=== PATIENT | female | born 1940 | race Caucasian/White ===

== ENCOUNTER 2022-02-05 13:56 | Emergency (ER) | payer MEDICARE, MEDICAID, SELFPAY ==
--- NOTE | ~2022-02-05 | CT_ITS ---
EXAMINATION: CT abdomen pelvis w con DATE: 02/05/2022 15:53 INDICATION: Small bowel obstruction TECHNIQUE: Computed tomography (CT) of the abdomen and pelvis was performed . 100 CC Omnipaque 350 in travenous contrast. Automated exposure control and iterative reconstruction technique were employed. Exam dose: 850.72 mGy-cm total exam DLP. COMPARISON: None. FINDINGS: The lung bases are clear. Cardiomegaly. No pericardial or pleural effusion. Postoperative change including surgical clips and retraction of left breast. Status post cholecystectomy. This likely accounts for mild prominence of the intrahepatic bile ducts. Normal caliber of the common bile duct. Normal caliber of the pancreatic duct. No hepatic, splenic, pancreatic, and adrenal or renal space-occupying mass lesion is evident. There i s extensive atherosclerotic calcification of the abdominal aorta and iliac arteries but no aneurysm o f these vessels. No intraperitoneal or retroperitoneal or pelvic mass lesion or adenopathy or ascites. There is a Schmitt catheter within the evacuated urinary bladder. Status post hysterectomy. There is a very prominent amount of fecal material throughout the colon as well as distal small bowel . There is a nonobstructed nonstrangulated loop of small bowel within a right inguinal hernia. No bow el obstruction, bowel wall thickening, pneumatosis or intraperitoneal free air is detected. Diffuse idiopathic skeletal hyperostosis of the thoracic spine. Multilevel degenerative disc disease of the lumbar spine, especially L1-2 and L2-3 with is retrolisth esis at each of these levels, moderately severe degenerative disc disease at L3-4 as well. There is d egenerative change at the apophyseal joints with associated grade 1 anterolisthesis at L4-5. No suspicious osteolytic or osteoblastic lesions are noted. IMPRESSION: Mammographic material throughout the colon and also in the distal small bowel; no bowel obstruction There is a nonobstructed nonstrangulated loop of small bowel within the right inguinal hernia Status post cholecystectomy Status post hysterectomy Postoperative change from left partial mastectomy Small sliding hiatal hernia Reviewed, dictated and finalized at [facility]. Reviewed, dictated and finalized at location [facility]. IMPRESSION: Mammographic material throughout the colon and also in the distal small bowel; no bowel obstruction There is a nonobstructed nonstrangulated loop of small bowel within the right i nguinal hernia Status post cholecystectomy Status post hysterectomy Postoperative change from left partial mastectomy Small sliding hiatal hernia
[2022-02-05 14:02] VITALS: BP 118/69; PULSE 79; RESP 20; TEMP 36.8; O2SAT 95
[2022-02-05 15:23] LABS: Basophils Absolute Auto 0.1 K/mm3 (0.0-0.1); Basophils Percent Auto 0.6 % (0.2-1.2); Eosinophils Absolute Auto 0.2 K/mm3 (0-0.3); Eosinophils Percent Auto 1.7 % (0-4.4); Hematocrit 48.7 % (37.0-47.0); Hemoglobin 15.6 g/dL (12.0-15.0); Immature Granulocyte Absolute 0.21 K/mm3 (0.00-0.031); Immature Granulocyte Percent A 1.5 % (0-0.5); Lymphocytes Absolute Auto 2.05 K/mm3 (0.9-3.2); Lymphocytes Percent Auto 14.7 % (18.3-44.2); Mean Corpuscular Hemoglobin 26.9 pg (26-34); Mean Corpuscular Volume 84.1 fl (80-100); Monocytes Absolute Auto 2.5 K/mm3 (0.1-0.6); Monocytes Percent Auto 18.3 % (2.6-8.5); Neutrophils Absolute Auto 8.8 K/mm3 (1.3-6.7); Neutrophils Percent Auto 63.2 % (45.5-73.1); Platelet Count Result 301 k/mm3 (150-375); Red Blood Count 5.79 M/mm3 (4.2-5.4); Red Cell Distribution Width 13.9 % (11.5-14.5); White Blood Count 13.9 K/mm3 (4.5-10.0)
[2022-02-05 15:27] LABS: Alanine Aminotransferase 27 U/L (6-35); Albumin Level 3.7 g/dL (3.5-5.1); Alkaline Phosphatase 117 U/L (38-126); Anion Gap 9 mmol/L (8-16); Aspartate Amino Transferase 24 U/L (14-36); Bilirubin,Total 0.3 mg/dL (0.2-1.3); Blood Urea Nitrogen 22 mg/dL (7-17); Calcium 10.2 mg/dL (8.4-10.2); Carbon Dioxide 28 mmol/L (22-30); Chloride 99 mmol/L (98-107); Estimated CRCL calculation 47 ml/min; Estimated Glomerular Filt Rate > 60; Glucose 125 mg/dL (65-110); Lipase 86 U/L (23-300); Potassium 3.8 mmol/L (3.4-5.0); Sodium 136 mmol/L (137-145)
--- NOTE | 2022-02-05 15:33 | ED.ABDPAIN ---
HPI - Abdominal Pain General Chief Complaint: Abdominal Pain Stated Complaint: SBO Time Seen by Provider: 02/05/22 14:06 History of Present Illness HPI narrative: Patient is an 81-year-old female who presents ER from her longterm for evaluation of possible bowel obstruction. Patient reports she is bloated and that this is a new finding over the last 2 days. She is still passing gas but has not had a bowel movement. She is unsure if she has been taking any laxatives. Chart review shows patient has history of chronic constipation and is on multiple stool softeners and laxatives. She has no pain. She is oriented x2. Suspect this is her baseline given the fact that she has a donepezil allergy. Related Data Allergies Allergy/AdvReac Type Severity Reaction Status Date / Time diltiazem Allergy Unknown Verified 02/05/22 16:39 donepezil Allergy Unknown Verified 02/05/22 16:39 fluticasone Allergy Unknown Verified 02/05/22 16:39 metformin Allergy Unknown Verified 02/05/22 16:39 Review of Systems Review of Systems: ROS unobtainable: Yes unobtainable due to mental status [facility] Past Medical History Medical History (Updated 02/05/22 @ 17:23 by Duane Tomas MD) Atherosclerotic heart disease Atrial fibrillation Breast cancer Chronic idiopathic constipation Congestive heart failure Dementia GERD (gastroesophageal reflux disease) Hereditary spastic paraplegia Hyperparathyroidism Hypertension Hypothyroidism Neurogenic bladder Type 2 diabetes mellitus Surgical History Surgical History (Updated 02/05/22 @ 15:36 by Duane Tomas MD) Surgical history unknown Social History Social History (Updated 02/05/22 @ 15:36 by Duane Tomas MD) Social History: Resides at [facility]. Full code. Exam Narrative: GENERAL: Well-appearing, well-nourished, and in no acute distress. HEAD: Normocephalic, atraumatic. EYES: PERRL and EOMI. ENT: Mucous membranes moist. CHEST: Clear to auscultation. No respiratory distress. HEART: Regular rate and rhythm. Normal peripheral pulses. ABDOMEN: Soft, nontender, mildly distended with normal bowel sounds. EXTREMITIES: Normal range of motion. No edema. SKIN: Warm, dry, no rash. NEURO: Alert and oriented x2. PSYCH: Normal mood and affect. Course Course Emergency Course: He has no itching and no obstruction just persistent constipation. Patient's abdomen is nontender. We will give some lactulose here and recommend increasing bowel regimen for home. Vital Signs Vital signs: Vital Signs Temperature 98.2 F 02/05/22 14:02 Pulse Rate 79 02/05/22 14:02 Respiratory Rate 20 02/05/22 14:02 Blood Pressure 118/69 02/05/22 14:02 Pulse Oximetry 95 02/05/22 14:02 Oxygen Delivery Room Air 02/05/22 14:02 Temperature 98.2 F 02/05/22 14:02 Pulse Rate 79 02/05/22 16:21 Respiratory Rate 16 02/05/22 16:21 Blood Pressure 138/59 L 02/05/22 16:21 Pulse Oximetry 99 02/05/22 16:21 Oxygen Delivery Room Air 02/05/22 14:02 MDM - Abdominal Pain Lab Data Result diagrams: 02/05/22 15:13 02/05/22 15:13 Labs: Lab Results 02/05/22 02/05/22 Range/Units 15:13 15:13 WBC 13.9 H (4.5-10.0) K/mm3 RBC 5.79 H (4.2-5.4) M/mm3 Hgb 15.6 H (12.0-15.0) g/dL Hct 48.7 H (37.0-47.0) % MCV 84.1 (80-100) fl MCH 26.9 (26-34) pg MCHC 32.0 (32-36) g/dl RDW 13.9 (11.5-14.5) % Plt Count 301 (150-375) k/mm3 MPV 10.0 (7.4-10.4) fl Immature Gran % (Auto) 1.5 H (0-0.5) % Neut % (Auto) 63.2 (45.5-73.1) % Lymph % (Auto) 14.7 L (18.3-44.2) % Long % (Auto) 18.3 H (2.6-8.5) % Eos % (Auto) 1.7 (0-4.4) % Baso % (Auto) 0.6 (0.2-1.2) % Lymph # (Auto) 2.05 (0.9-3.2) K/mm3 Long # (Auto) 2.5 H (0.1-0.6) K/mm3 Eos # (Auto) 0.2 (0-0.3) K/mm3 Baso # (Auto) 0.1 (0.0-0.1) K/mm3 Abs Immat Gran (auto) 0.21 H (0.00-0.031) K/mm3 Absolute Neuts (auto) 8.8 H (1.3
[2022-02-05 16:21] VITALS: BP 138/59; PULSE 79; RESP 16; O2SAT 99
[2022-02-05] MEDS: LACTULOSE 20 GM/30 ML UDC PO (16:49)
== END 2022-02-05 18:43 | disposition home or self-care (01) ==
PROVIDERS: Emergency Provider Emergency Medicine; PCP Family Medicine
DX: K59.00 Constipation, unspecified (principal); I25.10 Atherosclerotic heart disease of native coronary artery without angina pectoris; I48.91 Unspecified atrial fibrillation; Z85.3 Personal history of malignant neoplasm of breast; I11.0 Hypertensive heart disease with heart failure; I50.9 Heart failure, unspecified; E03.9 Hypothyroidism, unspecified; E11.9 Type 2 diabetes mellitus without complications
CPT/HCPCS: 36415; 74177; 80053; 83690; 85025; 99284; A9270; Q9967

== ENCOUNTER 2022-03-25 00:33 | Day surgery (SDC) | payer MEDICARE, OTHER, MEDICAID, SELFPAY ==
[2022-03-11 14:40] VITALS: BMI 27.1
--- NOTE | 2022-03-11 15:32 | PC.NURSE ---
Report to the Outpatient Waiting Room, entrance under the green pavilion located off [facility], at time _1130 on date __03/25/22 . Planned Procedure Time: _1330 . Time changes happen often and if your time is changed the preop area will call you the afternoon before. - You and your visitor will be asked to self-screen and do not enter if you have any COVID symptoms. - We encourage only one visitor and NO visitors under age 16 are allowed at this time. Your visitor will receive communication by the phone number that is given day of service. - The patient visitor is requested to social distance or may leave the building when not with patient due to restrictions. - A mask is required within the hospital. Patients may have clear liquids (water, carbonated beverages, clear teas, apple juice) until 3 hours prior to surgery with a maximum of 20 ounces. - No food from midnight until time of surgery - Infants may have breast milk until 4 hours before surgery, formula 6 hours prior to surgery. - Children will be allowed to drink immediately following surgery. If applicable, please bring a bottle or sippy cup to assist with drinking. Juice, water, soda, and popsicles are readily available. For infants on formula, please bring formula the day of surgery. Pacifiers are allowed. Take the following medications with a SIP of water the morning of surgery: __EYE DROPS,FLECAINIDE, AND LEVOTHYROXINE Medications to discontinue per physician ____HOLD ELIQUIS 48 HOURS PRE OP PER DR MEDINA. AND HOLD ALL VITAMINS AND SUPPLEMENTS 3 DAYS PRE OP Date to take last dose__ELIQUIS 03/22/22 ALL VITAMINS/ SUPPLEMENTS 03/21/22 Please no make-up, nail haitian, hairspray, perfume, deodorant, or body powder the day of surgery. No jewelry (including any body piercings) or valuables the day of surgery, leave them at home. Please take a shower or bath the night before, or the morning of, surgery with an antibacterial soap. Wear comfortable, loose fitting clothing. Children are encouraged to wear pajamas. - Jewelry must be removed prior to entering the operating room. Rings and piercings that are not removed may be cut off. - The hospital will not accept responsibility for valuables. - Please leave all valuables, including medications, at home the day of surgery. If you are going home after surgery, a licensed automobile drivers must drive you home. - NO public transportation without another adult. - We recommend that an adult stay with you for 24 hours following discharge. - We also recommend that you do not drive, make important decision, drink alcoholic beverages, or take any drugs that were not prescribed by your health care provider for at least 24 hours after your discharge time. For Pediatric surgeries, we recommend two adults accompany the child home. Follow any additional instructions given to you from your surgeon. If you or anyone in your household have experienced Covid symptoms in the past week, please notify your surgeon or the nurse liaison at the phone number below for possible testing. Telephone instructions FAXED TO [facility] 03/11/22 AT 2428 given to __UNA and asked if any additional questions and then verbalized understanding. Patient advised to call surgeon office or pre surgery nurse liaison [phone] if any additional questions.
--- NOTE | 2022-03-22 11:34 | PM.IMHP ---
H&P: HPI History of Present Illness Date/Time: 03/22/22 11:34 Chief Complaint: Urinary retention Narrative: This is an 81-year-old female with hereditary spastic hemiplegia. This has resulted in urinary retention. She has had a chronic indwelling Schmitt catheter for several years. In the past I have recommended suprapubic tube to lessen the risk of urethral erosion. She is declined in the past. She is now having issues with her urethral Schmitt with clogging and difficulties with management. She would like suprapubic Review of Systems Review of Systems: All systems reviewed & are unremarkable except as noted in HPI and below [facility] Past Medical History Medical History (Updated 03/22/22 @ 11:36 by Hussain Ray MD) Atherosclerotic heart disease Atrial fibrillation Breast cancer Chronic idiopathic constipation Congestive heart failure Dementia GERD (gastroesophageal reflux disease) Hereditary spastic paraplegia Hyperparathyroidism Hypertension Hypothyroidism Neurogenic bladder Type 2 diabetes mellitus Surgical History Surgical History Surgical history unknown Social History Social History Social History: Resides at [facility]. Full code. Smoking status: Never smoker Living arrangements[place] [facility] Spiritual care concerns: No Meds Home Medications and Allergies Home Medications Medication Instructions Recorded Confirmed Type lactulose 20 gram oral packet 20 g PO QID PRN constipation #30 ea 02/05/22 03/11/22 Rx Saccharomyces boulardii 250 mg 250 mg PO BID 03/11/22 03/11/22 History capsule (Florastor) amitriptyline 50 mg tablet 50 mg PO HS 03/11/22 03/11/22 History anastrozole 1 mg tablet 1 mg PO DAILY 03/11/22 03/11/22 History apixaban 5 mg tablet (Eliquis) 5 mg PO BID 03/11/22 03/11/22 History bromfenac 0.07 % eye drops 1 drp RIGHT EYE DAILY 03/11/22 03/11/22 History (Prolensa) calcium polycarbophil 625 mg 1,250 mg PO TID 03/11/22 03/11/22 History tablet (Fiber-Lax) canagliflozin 100 mg tablet 100 mg PO DAILY 03/11/22 03/11/22 History (Invokana) cholecalciferol (vitamin D3) 25 25 mcg PO DAILY 03/11/22 03/11/22 History mcg (1,000 unit) tablet cranberry extract 425 mg capsule 425 mg PO DAILY 03/11/22 03/11/22 History cyanocobalamin (vitamin B-12) 1,000 mcg PO DAILY 03/11/22 03/11/22 History 1,000 mcg tablet docusate sodium 100 mg capsule 100 mg PO DAILY 03/11/22 03/11/22 History dorzolamide 2 % eye drops 1 drp EACH EYE BID 03/11/22 03/11/22 History esomeprazole magnesium 40 mg 40 mg PO DAILY 03/11/22 03/11/22 History capsule,delayed release flecainide 50 mg tablet 50 mg PO BID 03/11/22 03/11/22 History furosemide 40 mg tablet 40 mg PO DAILY 03/11/22 03/11/22 History glimepiride 1 mg tablet 1 mg PO QPM 03/11/22 03/11/22 History glimepiride 2 mg tablet 2 mg PO BID 03/11/22 03/11/22 History insulin glargine 100 unit/mL (3 12 unit subcut DAILY 03/11/22 03/11/22 History mL) subcutaneous pen (Lantus Solostar U-100 Insulin) levothyroxine 75 mcg tablet 75 mcg PO DAILY 03/11/22 03/11/22 History linaclotide 290 mcg capsule 290 mcg PO DAILY 03/11/22 03/11/22 History (Linzess) metoclopramide HCl 10 mg tablet 10 mg PO TID 03/11/22 03/11/22 History metolazone 2.5 mg tablet 2.5 mg PO DAILY 03/11/22 03/11/22 History nitroglycerin 0.4 mg sublingual 0.4 mg sublingual PRN PRN Chest 03/11/22 03/11/22 History tablet Pain pediatric [id number] 1 tablet PO DAILY 03/11/22 03/11/22 History (Multi-Vitamins with Iron chewable tablet) polyethylene glycol 3350 17 17 g PO DAILY 03/11/22 03/11/22 History gram/dose oral powder potassium chloride 10 mEq 20 meq PO QID 03/11/22 03/11/22 History tablet,extended release (Klor-Con) rosuvastatin 10 mg tablet 10 mg PO HS 03/11/22 03/11/22 History simethicone 125 mg chewable tablet 125 mg PO BID 03/11/22
--- NOTE | 2022-03-25 07:13 | WPDHPUPDATE1 ---
History and Physical Update Update Date/Time: 03/25/22 07:13 History and Physical has been reviewed, including an updated exam of the patient. There are NO changes in the patient's condition. Risks, benefits, and alternatives have been discussed and questions answered. Patient agrees to proceed with procedure.
[2022-03-25 11:25] VITALS: BP 115/49; PULSE 80; RESP 16; TEMP 36.6; O2SAT 100
[2022-03-25] MEDS: LACTATED RINGERS 1,000 ML 30 ML IV CONT (12:00)
[2022-03-25 12:26] LABS: Glucose Point of Care 124 mg/dl (65-105)
--- NOTE | 2022-03-25 12:42 | WPDANESEPPF ---
Anes - Initial Pre Proc Eval Procedure: Operation Date: 03/25/22 13:30 Proposed Procedures p Cystoscopy, Insertion Suprapubic Catheter - Hussain Ray MD Date/Time: 03/25/22 12:42 Surgeon: Hussain Ray MD Pre Op Diagnosis: urinary incontinence,incomplete bladder emptying Patient Data Age: 81 Gender: F Height: 1.68 m Weight: 77 kg Last Vital Signs Temp 36.6 C 03/25/22 11:25 Pulse 80 03/25/22 11:25 Resp 16 03/25/22 11:25 BP 115/49 L 03/25/22 11:25 Pulse Ox 100 03/25/22 11:25 O2 Del Method Room Air 03/25/22 11:25 Allergies Allergy/AdvReac Type Severity Reaction Status Date / Time diltiazem Allergy Unknown Verified 03/11/22 13:34 donepezil Allergy Unknown Verified 03/11/22 13:34 fluticasone Allergy Unknown Verified 03/11/22 13:34 metformin Allergy Unknown Verified 03/11/22 13:34 Home Medications Medication Instructions Recorded Confirmed Type lactulose 20 gram oral packet 20 g PO QID PRN constipation #30 ea 02/05/22 03/25/22 Rx Saccharomyces boulardii 250 mg 250 mg PO BID 03/11/22 03/25/22 History capsule (Florastor) amitriptyline 50 mg tablet 50 mg PO HS 03/11/22 03/25/22 History anastrozole 1 mg tablet 1 mg PO DAILY 03/11/22 03/25/22 History apixaban 5 mg tablet (Eliquis) 5 mg PO BID 03/11/22 03/25/22 History bromfenac 0.07 % eye drops 1 drp RIGHT EYE DAILY 03/11/22 03/25/22 History (Prolensa) calcium polycarbophil 625 mg 1,250 mg PO TID 03/11/22 03/25/22 History tablet (Fiber-Lax) canagliflozin 100 mg tablet 100 mg PO DAILY 03/11/22 03/25/22 History (Invokana) cholecalciferol (vitamin D3) 25 25 mcg PO DAILY 03/11/22 03/25/22 History mcg (1,000 unit) tablet cranberry extract 425 mg capsule 425 mg PO DAILY 03/11/22 03/25/22 History cyanocobalamin (vitamin B-12) 1,000 mcg PO DAILY 03/11/22 03/25/22 History 1,000 mcg tablet docusate sodium 100 mg capsule 100 mg PO DAILY 03/11/22 03/25/22 History dorzolamide 2 % eye drops 1 drp EACH EYE BID 03/11/22 03/25/22 History esomeprazole magnesium 40 mg 40 mg PO DAILY 03/11/22 03/25/22 History capsule,delayed release flecainide 50 mg tablet 50 mg PO BID 03/11/22 03/25/22 History furosemide 40 mg tablet 40 mg PO DAILY 03/11/22 03/25/22 History glimepiride 1 mg tablet 1 mg PO QPM 03/11/22 03/25/22 History glimepiride 2 mg tablet 2 mg PO BID 03/11/22 03/25/22 History insulin glargine 100 unit/mL (3 12 unit subcut DAILY 03/11/22 03/25/22 History mL) subcutaneous pen (Lantus Solostar U-100 Insulin) levothyroxine 75 mcg tablet 75 mcg PO DAILY 03/11/22 03/25/22 History linaclotide 290 mcg capsule 290 mcg PO DAILY 03/11/22 03/25/22 History (Linzess) metoclopramide HCl 10 mg tablet 10 mg PO TID 03/11/22 03/25/22 History metolazone 2.5 mg tablet 2.5 mg PO DAILY 03/11/22 03/25/22 History nitroglycerin 0.4 mg sublingual 0.4 mg sublingual PRN PRN Chest 03/11/22 03/25/22 History tablet Pain pediatric [id number]-qcrq-qwd 1 tablet PO DAILY 03/11/22 03/25/22 History (Multi-Vitamins with Iron chewable tablet) polyethylene glycol 3350 17 17 g PO DAILY 03/11/22 03/25/22 History gram/dose oral powder potassium chloride 10 mEq 20 meq PO QID 03/11/22 03/25/22 History tablet,extended release (Klor-Con) rosuvastatin 10 mg tablet 10 mg PO HS 03/11/22 03/25/22 History simethicone 125 mg chewable tablet 125 mg PO BID 03/11/22 03/25/22 History sitagliptin phosphate 100 mg 100 mg PO DAILY 03/11/22 03/25/22 History tablet (Januvia) spironolactone 25 mg tablet 25 mg PO DAILY 03/11/22 03/25/22 History trospium 20 mg tablet 20 mg PO BID 03/11/22 03/25/22 History verapamil 120 mg tablet,extended 120 mg PO HS 03/11/22 03/25/22 History release Laboratory Tests 03/25/22 12:24 POC Capillary Glucose 124 mg/dl H mg/dl (65-105) Patient hx anesthesia problems: none Family hx anesthesia problems: none Results Review: All pre-operative results and documents have been reviewed as part of the pre-op
[2022-03-25] MEDS: ceFAZolin 2 GM/D5W 50 ML 2 GM/50 ML BAG IVPB (14:54)
[2022-03-25] MEDS: LIDOCAINE HCL 2% GEL UROJET 10 ML PKG MUCOUS MEM (15:23)
[2022-03-25] MEDS: LIDO 2%/EPINEPHRINE 1:100,000 50 ML VIAL 10 ML INFILTRATE (15:25)
[2022-03-25 15:37] VITALS: BP 126/46; PULSE 82; RESP 16; O2SAT 100
[2022-03-25 15:46] LABS: Glucose Point of Care 123 mg/dl (65-105)
--- NOTE | 2022-03-25 15:49 | P.OP_ITS ---
Procedure Note - Detailed Date of Procedure 03/25/22 Pre-op Diagnosis Neurogenic bladder Post-op Diagnosis Same Procedure Performed Cystoscopy with percutaneous placement of suprapubic tube Surgeon Hussain Ray MD Metal Weather Stripper None Anesthesia MAC and Local Indications This is a woman with neurogenic bladder secondary to hereditary spastic paraplegia. She has been wearing indwelling catheter for 3 years. When I last saw her I urged suprapubic tube placement. She declined. She now is ready for suprapubic tube placement. She understands risks of bleeding, infection, damage to the bowel or surrounding organs, leakage around the suprapubic tube, continued urinary incontinence from urethra. She agrees to proceed Findings Dilated urethra. Small capacity neurogenic bladder. Description of Procedure She was correctly identified. Informed consent obtained. She from the operating room. She was given MAC anesthesia. She was placed in the low lithotomy position. Genitalia and lower abdomen were prepped and draped sterile fashion. Time-out performed. I performed cystoscopy. She had a very spastic bladder. Her bladder was low capacity. 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 There was some catheter related cystitis. SCDs were placed before the procedure. I filled her bladder to its capacity. I chose a site 2 fingerbreadths cephalad to the pubic bone. A stiff finer needles into the bladder. This was done easily. It was a little right to the midline because she had previous incisional scar. I placed a guidewire through the needle. I made a skin pio. I dilated the tract with the 810 dilator. I then placed the introducer sheath. I placed a 16 [place] tip catheter over a guidewire. The balloon was inflated. Cystoscopy confirmed the suprapubic tube to be in the bladder. It was secured with a silk drain stitch x2. Dressing was applied. It was placed to gravity drainage. She was awakened and transferred to PACU in stable condition. Implants Suprapubic tube Estimated Blood Loss 2 Drains Yes (Suprapubic tube) Packing No Pathology None sent Complications No immediate complications Condition Stable Disposition PACU
[2022-03-25 16:05] VITALS: BP 125/41; PULSE 83; RESP 16; O2SAT 100
[2022-03-25 16:35] VITALS: BP 136/62; PULSE 83; RESP 16; O2SAT 100
--- NOTE | 2022-03-25 16:52 | SUR.PHASEII ---
PATIENT DOESN'T MOVE LEGS WHICH IS HER BASELINE. TRANSPORTATION ARRANGED PER RENAE MILLS, PACU CADD TECHNICIAN, WITH [facility]. ETA 1715. PATIENT DRESSED, WAITING FOR RIDE; DAUGHTER AND SPOUSE AT BEDSIDE.
--- NOTE | 2022-03-25 17:56 | SUR.PHASEII ---
[facility] HERE; PATIENT TRANSFERRED FROM [facility] TO [facility]. TOLERATED TRANSFER WELL. DISCHARGE PAPERS GIVEN TO MARV, DAUGHTER, WHO STATES SHE WILL GIVE TO THE ALF. AMBULANCE FORM AND FACESHEET GIVEN TO [place] STAFF.
== END 2022-03-25 17:57 | disposition home or self-care (01) ==
PROVIDERS: PCP Family Medicine; Visit Provider Urology
PROC: 0T9B30Z Drainage of Bladder with Drainage Device, Percutaneous Approach (ICD-10-PCS; CPT 51102; principal; 2022-03-25 13:30)
DX: N31.9 Neuromuscular dysfunction of bladder, unspecified (principal); R33.9 Retention of urine, unspecified; I25.10 Atherosclerotic heart disease of native coronary artery without angina pectoris; I48.91 Unspecified atrial fibrillation; E03.9 Hypothyroidism, unspecified; E11.9 Type 2 diabetes mellitus without complications; K21.9 Gastro-esophageal reflux disease without esophagitis; K59.09 Other constipation; I11.0 Hypertensive heart disease with heart failure; I50.9 Heart failure, unspecified; F03.90 Unspecified dementia, unspecified severity, without behavioral disturbance, psychotic disturbance, mood disturbance, and anxiety; G11.4 Hereditary spastic paraplegia; E21.3 Hyperparathyroidism, unspecified; Z79.01 Long term (current) use of anticoagulants; Z79.84 Long term (current) use of oral hypoglycemic drugs; Z79.4 Long term (current) use of insulin
CPT/HCPCS: 51040; 82948; A9270; C1726; C1769; J0690; J1100; J2405; J2704; J3010; J7120

== ENCOUNTER 2022-05-18 18:33 | Emergency (ER) | payer MEDICARE, SELFPAY ==
[2022-05-18] VITALS (23 sets, daily range): BP systolic 110–154; BP diastolic 48–97; PULSE 103–116; RESP 24–36; TEMP 37.9; O2SAT 87–96
--- NOTE | ~2022-05-18 | CT_ITS ---
EXAMINATION: CT abdomen pelvis w con DATE: 05/18/2022 20:49 INDICATION: bowel obstruction, lethargic, normal A Ox4, currently A Ox1 TECHNIQUE: Computed tomography (CT) of the abdomen and pelvis was performed with 100 mL Omnipaque-350 intravenous contrast. Automated exposure control and iterative reconstruction technique were employe d. The dose-length product was 832.33 mGy-cm. COMPARISON: 02/05/2022. FINDINGS: Lower thorax: Minimal bibasilar atelectasis. Motion artifact. Coronary and mitral annulus calcificati on. Liver: Normal. Biliary/Gallbladder: Gallbladder is absent. No bile duct dilation. Pancreas: Pancreatic atrophy. Spleen: Normal. Adrenals:No mass. Kidneys: Mild bilateral cortical atrophy, no suspicious mass, obstructing calcification, or left-side d hydronephrosis. There is unchanged right proximal ureteral dilation, transition point at the level of the iliac vessels. GI tract: NG tube tip and side port terminating in the stomach. Dilated, filled filled stomach. Trans ition point in the third portion of the duodenum as it approaches the midline. Remainder of the small bowel is normal caliber. Increased diffuse large bowel dilation. No wall thickening or pneumatosis. Appendix not visualized. Mesentery/Peritoneum: No ascites, mass, or free air. Retroperitoneum: No mass. Atherosclerotic abdominal aortic and/or arterial calcifications. Pelvis: Uterus is surgically absent. Bladder decompressed by Schmitt catheter. Soft Tissues: Relatively wide necked right inguinal hernia containing fat and a portion of the wall o f the adjacent sigmoid. Bones: No acute osseous finding. IMPRESSION: 1. Fluid-filled dilated stomach. A degree of gastric outlet obstruction is suspected. 2. Worsening chronic large bowel dilation. Reviewed, dictated and finalized at location K. ETIC COORDINATOR IMPRESSION: 1. Fluid-filled dilated stomach. A degree of gastric outlet obstruction is susp ected. 2. Worsening chronic large bowel dilation.
--- NOTE | ~2022-05-18 | XR_ITS ---
EXAM: XR abdomen NG/feed tube insert DATE: 05/18/2022 19:44 HISTORY: ng placement . COMPARISON: None available. FINDINGS: Clear lung bases. NG tube is subdiaphragmatic, tip and side port projecting low in the lef t upper quadrant. Multiple loops of air-filled possibly dilated bowel in the upper abdomen IMPRESSION: NG tube is subdiaphragmatic likely in a distended fluid-filled stomach. Multiple loops of dilated bowel may reflect ileus or obstruction. Reviewed, dictated and finalized at location K. UITER ACCOUNT MANAGER IMPRESSION: NG tube is subdiaphragmatic likely in a distended fluid-filled stom ach. Multiple loops of dilated bowel may reflect ileus or obstruction.
[2022-05-18] MEDS: SODIUM CHLORIDE 0.9% IV 1,000 ML 999 ML IV CONT ×2 (18:45→21:15)
--- NOTE | 2022-05-18 19:22 | PC.NURSE ---
Used EMS 1000 ml bag of NS
[2022-05-18 19:56] LABS: Basophils Absolute Auto 0.1 K/mm3 (0.0-0.1); Basophils Percent Auto 0.3 % (0.2-1.2); Hematocrit 45.7 % (37.0-47.0); Hemoglobin 15.2 g/dL (12.0-15.0); Immature Granulocyte Absolute 0.77 K/mm3 (0.00-0.031); Immature Granulocyte Percent A 2.5 % (0-0.5); Lymphocytes Absolute Auto 2.32 K/mm3 (0.9-3.2); Lymphocytes Percent Auto 7.5 % (18.3-44.2); Mean Corpuscular HGB Conc 33.3 g/dl (32-36); Mean Corpuscular Hemoglobin 27.6 pg (26-34); Mean Corpuscular Volume 83.1 fl (80-100); Monocytes Absolute Auto 4.2 K/mm3 (0.1-0.6); Monocytes Percent Auto 13.4 % (2.6-8.5); Neutrophils Absolute Auto 23.8 K/mm3 (1.3-6.7); Neutrophils Percent Auto 76.3 % (45.5-73.1); Nucleated Red Blood Cells Perc 0.1 % (0.0-0.2); Platelet Count Result 419 k/mm3 (150-375); Red Cell Distribution Width 16.8 % (11.5-14.5); White Blood Count 31.1 K/mm3 (4.5-10.0)
--- NOTE | 2022-05-18 19:59 | ED.GENADULT ---
HPI - General Adult General Chief complaint: Altered Mental Status <Duane Tomas MD - Last Filed: 05/18/22 22:38> Stated complaint: LETHARGY, FEVER <Duane Tomas MD - Last Filed: 05/18/22 22:38> Time Seen by Provider: 05/18/22 18:37 <Duane Tomas MD - Last Filed: 05/18/22 22:38> History of Present Illness HPI narrative: Patient is an 81-year-old female who [facility] with altered mental status. Clearing x4 but now oriented x1. She has severely distended abdomen.. Reports that it hurts but is unable provide any additional history. <Duane Tomas MD - Last Filed: 05/18/22 22:38> Related Data Home medications: Home Medications Medication Instructions Recorded Confirmed Saccharomyces boulardii 250 mg 250 mg PO BID 03/11/22 03/25/22 capsule (Florastor) amitriptyline 50 mg tablet 50 mg PO HS 03/11/22 03/25/22 anastrozole 1 mg tablet 1 mg PO DAILY 03/11/22 03/25/22 apixaban 5 mg tablet (Eliquis) 5 mg PO BID 03/11/22 03/25/22 bromfenac 0.07 % eye drops 1 drp RIGHT EYE DAILY 03/11/22 03/25/22 (Prolensa) calcium polycarbophil 625 mg 1,250 mg PO TID 03/11/22 03/25/22 tablet (Fiber-Lax) canagliflozin 100 mg tablet 100 mg PO DAILY 03/11/22 03/25/22 (Invokana) cholecalciferol (vitamin D3) 25 25 mcg PO DAILY 03/11/22 03/25/22 mcg (1,000 unit) tablet cranberry extract 425 mg capsule 425 mg PO DAILY 03/11/22 03/25/22 cyanocobalamin (vitamin B-12) 1,000 mcg PO DAILY 03/11/22 03/25/22 1,000 mcg tablet docusate sodium 100 mg capsule 100 mg PO DAILY 03/11/22 03/25/22 dorzolamide 2 % eye drops 1 drp EACH EYE BID 03/11/22 03/25/22 esomeprazole magnesium 40 mg 40 mg PO DAILY 03/11/22 03/25/22 capsule,delayed release flecainide 50 mg tablet 50 mg PO BID 03/11/22 03/25/22 furosemide 40 mg tablet 40 mg PO DAILY 03/11/22 03/25/22 glimepiride 1 mg tablet 1 mg PO QPM 03/11/22 03/25/22 glimepiride 2 mg tablet 2 mg PO BID 03/11/22 03/25/22 insulin glargine 100 unit/mL (3 12 unit subcut DAILY 03/11/22 03/25/22 mL) subcutaneous pen (Lantus Solostar U-100 Insulin) levothyroxine 75 mcg tablet 75 mcg PO DAILY 03/11/22 03/25/22 linaclotide 290 mcg capsule 290 mcg PO DAILY 03/11/22 03/25/22 (Linzess) metoclopramide HCl 10 mg tablet 10 mg PO TID 03/11/22 03/25/22 metolazone 2.5 mg tablet 2.5 mg PO DAILY 03/11/22 03/25/22 nitroglycerin 0.4 mg sublingual 0.4 mg sublingual PRN PRN Chest 03/11/22 03/25/22 tablet Pain pediatric [id number] 1 tablet PO DAILY 03/11/22 03/25/22 (Multi-Vitamins with Iron chewable tablet) polyethylene glycol 3350 17 17 g PO DAILY 03/11/22 03/25/22 gram/dose oral powder potassium chloride 10 mEq 20 meq PO QID 03/11/22 03/25/22 tablet,extended release (Klor-Con) rosuvastatin 10 mg tablet 10 mg PO HS 03/11/22 03/25/22 simethicone 125 mg chewable tablet 125 mg PO BID 03/11/22 03/25/22 sitagliptin phosphate 100 mg 100 mg PO DAILY 03/11/22 03/25/22 tablet (Januvia) spironolactone 25 mg tablet 25 mg PO DAILY 03/11/22 03/25/22 trospium 20 mg tablet 20 mg PO BID 03/11/22 03/25/22 verapamil 120 mg tablet,extended 120 mg PO HS 03/11/22 03/25/22 release <Duane Tomas MD - Last Filed: 05/18/22 22:38> Allergies/adverse reactions: Allergies Allergy/AdvReac Type Severity Reaction Status Date / Time diltiazem Allergy Unknown Verified 03/11/22 13:34 donepezil Allergy Unknown Verified 03/11/22 13:34 fluticasone Allergy Unknown Verified 03/11/22 13:34 metformin Allergy Unknown Verified 03/11/22 13:34 <Duane Tomas MD - Last Filed: 05/18/22 22:38> Review of Systems Review of Systems: ROS unobtainable: Yes unobtainable due to medical condition <Duane Tomas MD - Last Filed: 05/18/22 22:38> [facility] Past Medical History Medical History: Medical History (Updated 05/18/22 @ 22:30 by Duane Tomas MD) Atherosclerotic heart disease Atrial fibrillation Breast cancer Chronic idiopathic constipa
[2022-05-18 20:08] LABS: INR 1.8; Partial Thromboplastin Time 30.3 SECONDS (22.3-36.8); Prothrombin Time 20.4 Seconds (11.1-14.7)
[2022-05-18 20:10] LABS: Alanine Aminotransferase 22 U/L (6-35); Albumin Level 3.7 g/dL (3.5-5.1); Alkaline Phosphatase 97 U/L (38-126); Anion Gap 8 mmol/L (8-16); Aspartate Amino Transferase 21 U/L (14-36); Bilirubin,Total 0.5 mg/dL (0.2-1.3); Blood Urea Nitrogen 47 mg/dL (7-17); Calcium 11.2 mg/dL (8.4-10.2); Carbon Dioxide 22 mmol/L (22-30); Chloride 95 mmol/L (98-107); Estimated Glomerular Filt Rate 60; Glucose 290 mg/dL (65-110); Potassium 3.2 mmol/L (3.4-5.0); Sodium 125 mmol/L (137-145)
[2022-05-18 20:21] LABS: Add Urine Microscopic? YES; Appearance Urine Cloudy (Clear); Bilirubin Urine Negative (Negative); Blood Urine Trace-Intact (Negative); Color Urine Yellow (Yellow); Glucose Urine UA 3+ mg/dL (Negative); Ketones Urine 1+ mg/dL (Negative); Leukocyte Esterase Ur 2+ LEU/UL (Negative); Nitrate Urine Positive (Negative); Protein Urine Negative (Negative); Specific Grav Ur <= 1.005 (1.001-1.035); pH Urine 7.5 (5.0-9.0)
[2022-05-18 20:30] LABS: Bacteria Urine Trace /hpf; Mucus Urine Rare /lpf; Squamous Epithelial Cell Urine Rare /hpf (Few); WBC Urine >75 /hpf
[2022-05-18 21:08] LABS: SARS-CoV-2 RNA PCR Negative
[2022-05-18 22:02] LABS: Magnesium 2.1 mg/dL (1.6-2.3)
[2022-05-18] MEDS: POTASSIUM CHLORIDE INJ 40 MEQ in SODIUM CHLORIDE 0.9% IV 500 ML 130 MEQ IVPB (22:05)
--- NOTE | 2022-05-18 22:14 | PC.NURSE ---
[address] on pt status. Spoke with Antoinette. Notified that pt is currently on the [facility] medical waitlist and that it may be several days for placement.
--- NOTE | 2022-05-18 22:16 | PC.NURSE ---
2205 Spoke with [facility] transfer line. Updated on pt status. Was notified that pt is currently on [facility] medical waitlist and maybe a several day wait for bed assignment. Will re-evaluate in 12 hours.
[2022-05-19] VITALS (46 sets, daily range): BP systolic 128–151; BP diastolic 56–90; PULSE 91–110; RESP 16–26; TEMP 36.5; O2SAT 94–98
[2022-05-19] MEDS: SODIUM CHLORIDE 0.9% IV 1,000 ML 125 ML IV CONT (01:05)
--- NOTE | 2022-05-19 07:03 | PC.NURSE ---
updated slu on patient ambulance status at this time waiting should arrive between 8 and 9
--- NOTE | 2022-05-19 08:26 | PC.NURSE ---
update eta for ALS 09:30 for transfer to [facility] Rm [id number]
--- NOTE | 2022-05-19 09:56 | PC.NURSE ---
0953 [facility] EMs status check eta 11a
== END 2022-05-19 11:27 ==
PROVIDERS: Emergency Provider Emergency Medicine; PCP Family Medicine
DX: A41.9 Sepsis, unspecified organism (principal); K31.1 Adult hypertrophic pyloric stenosis; K63.89 Other specified diseases of intestine; N39.0 Urinary tract infection, site not specified; E87.1 Hypo-osmolality and hyponatremia; E87.6 Hypokalemia; Z20.822 Contact with and (suspected) exposure to COVID-19; F03.90 Unspecified dementia, unspecified severity, without behavioral disturbance, psychotic disturbance, mood disturbance, and anxiety; I25.10 Atherosclerotic heart disease of native coronary artery without angina pectoris; I48.91 Unspecified atrial fibrillation; I50.9 Heart failure, unspecified; I11.0 Hypertensive heart disease with heart failure; G35 Multiple sclerosis; N31.9 Neuromuscular dysfunction of bladder, unspecified; E21.3 Hyperparathyroidism, unspecified; E11.9 Type 2 diabetes mellitus without complications; K59.04 Chronic idiopathic constipation; K21.9 Gastro-esophageal reflux disease without esophagitis; Z85.3 Personal history of malignant neoplasm of breast; Z79.4 Long term (current) use of insulin; Z79.01 Long term (current) use of anticoagulants; Z79.84 Long term (current) use of oral hypoglycemic drugs
CPT/HCPCS: 36415; 74177; 80053; 81001; 83605; 83735; 85025; 85610; 85730; 87040; 87077; 87086; 87186; 96361; 96365; 96366; 96367; 99284; J2543; J3480; J7030; J7040; Q9967; U0003; U0005

== ENCOUNTER 2022-06-03 00:48 | Day surgery (SDC) | payer MEDICARE, MEDICAID, SELFPAY ==
[2022-05-31 08:11] VITALS: BMI 28.0
--- NOTE | 2022-05-31 09:27 | PM.IMHP ---
H&P: HPI History of Present Illness Date/Time: 05/31/22 09:27 Chief Complaint: Neurogenic bladder Narrative: This is a with neurogenic bladder. She has urinary retention. She had an indwelling Schmitt catheter. I gave her a suprapubic tube in March. Unfortunately her facility dislodged the suprapubic tube and could not be replaced. She again now has a Schmitt catheter. She is here today for repeat placement of a suprapubic tube Review of Systems Review of Systems: All systems reviewed & are unremarkable except as noted in HPI and below PMFSH Past Medical History Medical History Atherosclerotic heart disease Atrial fibrillation Breast cancer Chronic idiopathic constipation Congestive heart failure Dementia GERD (gastroesophageal reflux disease) Hereditary spastic paraplegia Hyperparathyroidism Hypertension Hypothyroidism Multiple sclerosis Neurogenic bladder Type 2 diabetes mellitus Surgical History Surgical History Surgical history unknown Social History Social History Social History: Resides at [facility]. Full code. Smoking status: Never smoker Spiritual care concerns: No Meds Home Medications and Allergies Home Medications Medication Instructions Recorded Confirmed Type lactulose 20 gram oral packet 20 g PO QID PRN constipation #30 ea 02/05/22 05/30/22 Rx Saccharomyces boulardii 250 mg 250 mg PO BID 03/11/22 05/30/22 History capsule (Florastor) amitriptyline 50 mg tablet 25 mg PO HS 03/11/22 05/30/22 History anastrozole 1 mg tablet 1 mg PO DAILY 03/11/22 05/30/22 History apixaban 5 mg tablet (Eliquis) 5 mg PO BID 03/11/22 05/30/22 History bromfenac 0.07 % eye drops 1 drp RIGHT EYE QAM 03/11/22 05/30/22 History (Prolensa) calcium polycarbophil 625 mg 1,250 mg PO TID 03/11/22 05/30/22 History tablet (Fiber-Lax) cholecalciferol (vitamin D3) 25 25 mcg PO DAILY 03/11/22 05/30/22 History mcg (1,000 unit) tablet cranberry extract 425 mg capsule 425 mg PO DAILY 03/11/22 05/30/22 History cyanocobalamin (vitamin B-12) 1,000 mcg PO DAILY 03/11/22 05/30/22 History 1,000 mcg tablet docusate sodium 100 mg capsule 100 mg PO EVERY OTHER DAY 03/11/22 05/30/22 History dorzolamide 2 % eye drops 1 drp EACH EYE BID 03/11/22 05/30/22 History esomeprazole magnesium 40 mg 40 mg PO DAILY 03/11/22 05/30/22 History capsule,delayed release flecainide 50 mg tablet 50 mg PO BID 03/11/22 05/30/22 History furosemide 40 mg tablet 40 mg PO QAM 03/11/22 05/30/22 History insulin glargine 100 unit/mL (3 12 unit subcut QAM 03/11/22 05/30/22 History mL) subcutaneous pen (Lantus Solostar U-100 Insulin) levothyroxine 75 mcg tablet See Rx Instructions .Route .COMPLEX 03/11/22 05/30/22 History linaclotide 290 mcg capsule 290 mcg PO QAM 03/11/22 05/30/22 History (Linzess) metoclopramide HCl 10 mg tablet 10 mg PO TID 03/11/22 05/30/22 History metolazone 2.5 mg tablet 2.5 mg PO DAILY 03/11/22 05/30/22 History nitroglycerin 0.4 mg sublingual 0.4 mg sublingual PRN PRN Chest 03/11/22 05/30/22 History tablet Pain pediatric [id number]-oigt-jdd 1 tablet PO DAILY 03/11/22 05/30/22 History (Multi-Vitamins with Iron chewable tablet) polyethylene glycol 3350 17 17 g PO DAILY 03/11/22 05/30/22 History gram/dose oral powder potassium chloride 10 mEq 20 meq PO QID 03/11/22 05/30/22 History tablet,extended release (Klor-Con) rosuvastatin 10 mg tablet 10 mg PO HS 03/11/22 05/30/22 History simethicone 125 mg chewable tablet 125 mg PO BID 03/11/22 05/30/22 History sitagliptin phosphate 100 mg 100 mg PO DAILY 03/11/22 05/30/22 History tablet (Januvia) spironolactone 25 mg tablet 25 mg PO QAM 03/11/22 05/30/22 History trospium 20 mg tablet 20 mg PO BID 03/11/22 05/30/22 History verapamil 120 mg tablet,extended 120 mg PO HS 03/11/2205/30/
--- NOTE | 2022-05-31 10:30 | PC.NURSE ---
Addendum entered by Nelly Alan RN 05/31/22 11:13: ARRIVE AT 0930 FOR A 1200 SURGERY Original Note: Report to the Outpatient Waiting Room, entrance under the green pavilion located off [address], at time __0830 on date _06/03/22 . Planned Procedure Time: __1030 . Time changes happen often and if your time is changed the preop area will call you the afternoon before. - You and your visitor will be asked to self-screen and do not enter if you have any COVID symptoms. - Only one visitor is requested with a max of two and NO children visitors are allowed at this time. - The patient visitor may be requested to leave or wait in car when not with patient due to distancing restrictions. - A mask is optional within the hospital. Patients may have clear liquids (water, carbonated beverages, clear teas, apple juice) until 3 hours prior to surgery with a maximum of 20 ounces. - No food from midnight until time of surgery - Infants may have breast milk until 4 hours before surgery, infant formula 6 hours prior to surgery. - Children will be allowed to drink immediately following surgery. If applicable, please bring a bottle or sippy cup to assist with drinking. Juice, water, soda, and popsicles are readily available. For infants on formula, please bring formula the day of surgery. Pacifiers are allowed. Take the following medications with a SIP of water the morning of surgery: ___EYE DROPS,FLECAINIDE,LEVOTHYROXINE Medications to discontinue per physician __GISELLE 2 DAYS PRE OP .DANILE TO FAX ORDERED TO [facility] LAST DOSE 05/31/22. ALL VITAMINS AND SUPLEMENTS 3 DAYS PRE OP LAST DOSE 05/31/22 Please no make-up, nail bahamian, hairspray, perfume, deodorant, or body powder the day of surgery. No jewelry (including any body piercings) or valuables the day of surgery, leave them at home. Please take a shower or bath the night before, or the morning of, surgery with an antibacterial soap. Wear comfortable, loose fitting clothing. Children are encouraged to wear pajamas. - Jewelry must be removed prior to entering the operating room. Rings and piercings that are not removed may be cut off. - The hospital will not accept responsibility for valuables. - Please leave all valuables, including medications, at home the day of surgery. If you are going home after surgery, a licensed hammer driver must drive you home. - NO public transportation without another adult if you receive anesthesia. - We recommend that an adult stay with you for 24 hours following discharge. - We also recommend that you do not drive, make important decision, drink alcoholic beverages, or take any drugs that were not prescribed by your health care provider for at least 24 hours after your discharge time. For Pediatric surgeries, we recommend two adults accompany the child home. Follow any additional instructions given to you from your surgeon. If you or anyone in your household have experienced Covid symptoms in the past week, please notify your surgeon or the nurse liaison at the phone number below for possible testing. FAXED instructions given to __ISABEL GOMEZ ATT: SURY and asked if any additional questions and then verbalized understanding. Patient advised to call surgeon office or pre surgery nurse liaison [phone] if any additional questions.
--- NOTE | 2022-06-03 07:39 | WPDHPUPDATE1 ---
History and Physical Update Update Date/Time: 06/03/22 07:39 History and Physical has been reviewed, including an updated exam of the patient. There are NO changes in the patient's condition. Risks, benefits, and alternatives have been discussed and questions answered. Patient agrees to proceed with procedure.
--- NOTE | 2022-06-03 08:36 | WPDANESEPPF ---
Anes - Initial Pre Proc Eval Procedure: Operation Date: 06/03/22 12:00 Proposed Procedures p Cystoscopy,Insertion Suprapubic Catheter - Hsusain Ray MD Date/Time: 06/03/22 08:36 Surgeon: Hussain Ray MD Pre Op Diagnosis: neurogenic bladder Patient Data Age: 81 Gender: F Height: 1.65 m Weight: 76.3 kg Allergies Allergy/AdvReac Type Severity Reaction Status Date / Time black pepper Allergy Unknown Verified 05/30/22 15:57 diltiazem Allergy Unknown Verified 05/30/22 15:57 donepezil Allergy Unknown Verified 05/30/22 15:57 fluticasone Allergy Unknown Verified 05/30/22 15:57 metformin Allergy Unknown Verified 05/30/22 15:57 Home Medications Medication Instructions Recorded Confirmed Type lactulose 20 gram oral packet 20 g PO QID PRN constipation #30 ea 02/05/22 05/30/22 Rx Saccharomyces boulardii 250 mg 250 mg PO BID 03/11/22 05/30/22 History capsule (Florastor) amitriptyline 50 mg tablet 25 mg PO HS 03/11/22 05/30/22 History anastrozole 1 mg tablet 1 mg PO DAILY 03/11/22 05/30/22 History apixaban 5 mg tablet (Eliquis) 5 mg PO BID 03/11/22 05/30/22 History bromfenac 0.07 % eye drops 1 drp RIGHT EYE QAM 03/11/22 05/30/22 History (Prolensa) calcium polycarbophil 625 mg 1,250 mg PO TID 03/11/22 05/30/22 History tablet (Fiber-Lax) cholecalciferol (vitamin D3) 25 25 mcg PO DAILY 03/11/22 05/30/22 History mcg (1,000 unit) tablet cranberry extract 425 mg capsule 425 mg PO DAILY 03/11/22 05/30/22 History cyanocobalamin (vitamin B-12) 1,000 mcg PO DAILY 03/11/22 05/30/22 History 1,000 mcg tablet docusate sodium 100 mg capsule 100 mg PO EVERY OTHER DAY 03/11/22 05/30/22 History dorzolamide 2 % eye drops 1 drp EACH EYE BID 03/11/22 05/30/22 History esomeprazole magnesium 40 mg 40 mg PO DAILY 03/11/22 05/30/22 History capsule,delayed release flecainide 50 mg tablet 50 mg PO BID 03/11/22 05/30/22 History furosemide 40 mg tablet 40 mg PO QAM 03/11/22 05/30/22 History insulin glargine 100 unit/mL (3 12 unit subcut QAM 03/11/22 05/30/22 History mL) subcutaneous pen (Lantus Solostar U-100 Insulin) levothyroxine 75 mcg tablet See Rx Instructions .Route .COMPLEX 03/11/22 05/30/22 History linaclotide 290 mcg capsule 290 mcg PO QAM 03/11/22 05/30/22 History (Linzess) metoclopramide HCl 10 mg tablet 10 mg PO TID 03/11/22 05/30/22 History metolazone 2.5 mg tablet 2.5 mg PO DAILY 03/11/22 05/30/22 History nitroglycerin 0.4 mg sublingual 0.4 mg sublingual PRN PRN Chest 03/11/22 05/30/22 History tablet Pain pediatric guovmhrj-fwnx-opl 1 tablet PO DAILY 03/11/22 05/30/22 History (Multi-Vitamins with Iron chewable tablet) polyethylene glycol 3350 17 17 g PO DAILY 03/11/22 05/30/22 History gram/dose oral powder potassium chloride 10 mEq 20 meq PO QID 03/11/22 05/30/22 History tablet,extended release (Klor-Con) rosuvastatin 10 mg tablet 10 mg PO HS 03/11/22 05/30/22 History simethicone 125 mg chewable tablet 125 mg PO BID 03/11/22 05/30/22 History sitagliptin phosphate 100 mg 100 mg PO DAILY 03/11/22 05/30/22 History tablet (Januvia) spironolactone 25 mg tablet 25 mg PO QAM 03/11/22 05/30/22 History trospium 20 mg tablet 20 mg PO BID 03/11/22 05/30/22 History verapamil 120 mg tablet,extended 120 mg PO HS 03/11/22 05/30/22 History release hydrocodone 5 mg-acetaminophen 325 1 tablet PO Q6H PRN pain #20 tabs 11/07/22 01/12/23 Rx mg tablet miconazole nitrate 2 % topical 1 applic topical BID 05/30/22 05/30/22 History cream Results Review: All pre-operative results and documents have been reviewed as part of the pre-operative evaluation. [facility] Past Medical History Medical History (Updated 06/03/22 @ 08:37 by José Luis Harris DO) Atherosclerotic heart disease Atrial fibrillation Breast cancer Chronic idiopathic constipation Congestive heart failure Dementia GERD (gastroesophageal reflux disease) Hereditary spastic paraplegia History of pulmonary embo
[2022-06-03 10:15] VITALS: BP 87/59; PULSE 90; RESP 18; TEMP 36.1; O2SAT 93
[2022-06-03] MEDS: LACTATED RINGERS 1,000 ML 30 ML IV CONT (10:36)
--- NOTE | 2022-06-03 11:51 | SUR.PREOP ---
1[address] DR MEDINA HERE TO SEE PT, DAUGHTER PRESENT, SURGERY CANCELLED FOR TODAY.
== END 2022-06-03 11:45 | disposition home or self-care (01) ==
PROVIDERS: PCP Family Medicine; Visit Provider Urology
PROC: 0T9B30Z Drainage of Bladder with Drainage Device, Percutaneous Approach (ICD-10-PCS; CPT 51102; principal; 2022-06-03 12:00)
DX: Z46.6 Encounter for fitting and adjustment of urinary device (principal); N31.9 Neuromuscular dysfunction of bladder, unspecified; Z53.9 Procedure and treatment not carried out, unspecified reason; G11.4 Hereditary spastic paraplegia; I11.0 Hypertensive heart disease with heart failure; I50.9 Heart failure, unspecified; G35 Multiple sclerosis; E11.9 Type 2 diabetes mellitus without complications; E03.9 Hypothyroidism, unspecified; K21.9 Gastro-esophageal reflux disease without esophagitis; F03.90 Unspecified dementia, unspecified severity, without behavioral disturbance, psychotic disturbance, mood disturbance, and anxiety; I48.91 Unspecified atrial fibrillation; I25.10 Atherosclerotic heart disease of native coronary artery without angina pectoris; K59.09 Other constipation; E21.3 Hyperparathyroidism, unspecified; Z85.3 Personal history of malignant neoplasm of breast; Z79.811 Long term (current) use of aromatase inhibitors; Z79.01 Long term (current) use of anticoagulants; Z79.4 Long term (current) use of insulin; Z79.84 Long term (current) use of oral hypoglycemic drugs; Z79.891 Long term (current) use of opiate analgesic
CPT/HCPCS: 99214; G0463; J7120

== ENCOUNTER 2022-06-06 14:34 | Outpatient (CLI) | payer MEDICARE, MEDICAID, SELFPAY ==
[2022-06-06 14:54] LABS: Basophils Absolute Auto 0.1 K/mm3 (0.0-0.1); Basophils Percent Auto 0.6 % (0.2-1.2); Eosinophils Absolute Auto 0.3 K/mm3 (0-0.3); Eosinophils Percent Auto 1.7 % (0-4.4); Hematocrit 39.7 % (37.0-47.0); Hemoglobin 12.5 g/dL (12.0-15.0); Immature Granulocyte Absolute 0.14 K/mm3 (0.00-0.031); Immature Granulocyte Percent A 0.9 % (0-0.5); Lymphocytes Absolute Auto 2.04 K/mm3 (0.9-3.2); Lymphocytes Percent Auto 12.6 % (18.3-44.2); Mean Corpuscular HGB Conc 31.5 g/dl (32-36); Mean Corpuscular Hemoglobin 26.4 pg (26-34); Mean Corpuscular Volume 83.9 fl (80-100); Mean Platelet Volume 9.7 fl (7.4-10.4); Monocytes Absolute Auto 2.9 K/mm3 (0.1-0.6); Neutrophils Absolute Auto 10.7 K/mm3 (1.3-6.7); Neutrophils Percent Auto 66.2 % (45.5-73.1); Platelet Count Result 384 k/mm3 (150-375); Red Blood Count 4.73 M/mm3 (4.2-5.4); Red Cell Distribution Width 15.9 % (11.5-14.5); White Blood Count 16.1 K/mm3 (4.5-10.0)
[2022-06-06 20:23] LABS: Alanine Aminotransferase 22 U/L (6-35); Albumin Level 3.4 g/dL (3.5-5.1); Alkaline Phosphatase 134 U/L (38-126); Anion Gap 4 mmol/L (8-16); Aspartate Amino Transferase 29 U/L (14-36); Bilirubin,Total 0.3 mg/dL (0.2-1.3); Blood Urea Nitrogen 15 mg/dL (7-17); Calcium 10.1 mg/dL (8.4-10.2); Carbon Dioxide 29 mmol/L (22-30); Chloride 95 mmol/L (98-107); Estimated Glomerular Filt Rate > 60; Glucose 233 mg/dL (65-110); Potassium 4.5 mmol/L (3.4-5.0); Sodium 128 mmol/L (137-145)
[2022-06-11 21:18] LABS: CA 15-3 34 U/mL (<32)
== END 2022-06-06 14:35 | disposition home or self-care (01) ==
LOC: ANHLAB 14:36
PROVIDERS: PCP Family Medicine; Visit Provider Internal Medicine Hematology & Oncology
DX: M81.0 Age-related osteoporosis without current pathological fracture (principal); E11.9 Type 2 diabetes mellitus without complications
CPT/HCPCS: 36415; 80053; 85025; 86300

== ENCOUNTER 2022-07-15 00:57 | Day surgery (SDC) | payer MEDICARE, MEDICAID, SELFPAY ==
[2022-07-03 08:20] VITALS: BMI 27.5
--- NOTE | 2022-07-03 10:54 | PC.NURSE ---
Report to the Outpatient Waiting Room, entrance under the green pavilion located off [address], at time _1200_ on date _07/15/22_. Planned Procedure Time: _1400_. Time changes happen often and if your time is changed the preop area will call you the afternoon before. - You and your visitor will be asked to self-screen and do not enter if you have any COVID symptoms. - Only one visitor is requested with a max of two and NO children visitors are allowed at this time. - The patient visitor may be requested to leave or wait in car when not with patient due to distancing restrictions. - A mask is optional within the hospital at this time. Patients may have clear liquids (water, carbonated beverages, clear teas, apple juice) until 3 hours prior to surgery (1100 AM) with a maximum of 20 ounces. - No food from midnight until time of surgery Take the following medications with a SIP of water the morning of surgery: _FLECAINIDE, LEVOTHYROXINE, EYE DROPS, 1/2 AM INSULIN DOSE_ DO NOT STOP ANY OF YOUR OTHER PRESCRIPTION MEDICATIONS PRIOR TO SURGERY ?EXCEPT THE FOLLOWING Medications to discontinue - _ELIQUIS PER DR. QUESADA INSTRUCTIONS__ Medications to discontinue per ANESTHESIA - _VITAMINS/SUPPLEMENTS 3 DAYS PRIOR TO SURGERY, Date to take last dose 07/11/22_ Please no make-up, nail mongolian, hairspray, perfume, deodorant, or body powder the day of surgery. No jewelry (including any body piercings) or valuables the day of surgery, leave them at home. Please take a shower or bath the night before, or the morning of, surgery with an antibacterial soap. Wear comfortable, loose fitting clothing. Children are encouraged to wear pajamas. - Jewelry must be removed prior to entering the operating room. Rings and piercings that are not removed may be cut off. - The hospital will not accept responsibility for valuables. - Please leave all valuables, including medications, at home the day of surgery. If you are going home after surgery, a licensed power truck driver must drive you home. - NO public transportation without another adult if you receive anesthesia. - We recommend that an adult stay with you for 24 hours following discharge. - We also recommend that you do not drive, make important decision, drink alcoholic beverages, or take any drugs that were not prescribed by your health care provider for at least 24 hours after your discharge time. Follow any additional instructions given to you from your surgeon. If you or anyone in your household have experienced Covid symptoms in the past week, please notify your surgeon or the nurse liaison at the phone number below for possible testing. Telephone instructions FAXED to _ISABEL ENRIQUE_and asked if any additional questions and then verbalized understanding. Patient advised to call surgeon office or pre surgery nurse liaison [phone] if any additional questions.
--- NOTE | 2022-07-12 10:50 | PM.IMHP ---
H&P: HPI History of Present Illness Date/Time: 07/12/22 10:50 Chief Complaint: neurogenic bladder Narrative: this is a woman with neurogenic bladder and urinary retention. She is managed with an indwelling Schmitt catheter. She had a suprapubic tube in the past. Unfortunately was dislodged. We will replace her suprapubic tube Review of Systems Review of Systems: All systems reviewed & are unremarkable except as noted in HPI and below PMFSH Past Medical History Medical History Atherosclerotic heart disease Atrial fibrillation Breast cancer Chronic idiopathic constipation Congestive heart failure Dementia GERD (gastroesophageal reflux disease) Hereditary spastic paraplegia History of pulmonary embolism Hyperparathyroidism Hypertension Hypothyroidism Multiple sclerosis Neurogenic bladder CATY (obstructive sleep apnea) uncompliant with CPAP TIA (transient ischemic attack) Type 2 diabetes mellitus Surgical History Surgical History Surgical history unknown Social History Social History Social History: Resides at [facility]. Full code. Smoking status: Never smoker Second hand tobacco smoke exposure: No Alcohol intake: never Substance use: never Substance use type: does not use Living arrangements[facility] Additional living arrangements comments: [facility] Spiritual care concerns: No Meds Home Medications and Allergies Home Medications Medication Instructions Recorded Confirmed Type lactulose 20 gram oral packet 20 g PO QID PRN constipation #30 ea 02/05/22 07/03/22 Rx Saccharomyces boulardii 250 mg 250 mg PO BID 03/11/22 07/03/22 History capsule (Florastor) anastrozole 1 mg tablet 1 mg PO DAILY 03/11/22 07/03/22 History apixaban 5 mg tablet (Eliquis) 5 mg PO BID 03/11/22 07/03/22 History bromfenac 0.07 % eye drops 1 drp RIGHT EYE QAM 03/11/22 07/03/22 History (Prolensa) calcium polycarbophil 625 mg 1,250 mg PO TID 03/11/22 07/03/22 History tablet (Fiber-Lax) cholecalciferol (vitamin D3) 25 25 mcg PO DAILY 03/11/22 07/03/22 History mcg (1,000 unit) tablet cranberry extract 425 mg capsule 425 mg PO DAILY 03/11/22 07/03/22 History cyanocobalamin (vitamin B-12) 1,000 mcg PO DAILY 03/11/22 07/03/22 History 1,000 mcg tablet docusate sodium 100 mg capsule 100 mg PO EVERY OTHER DAY 03/11/22 07/03/22 History dorzolamide 2 % eye drops 1 drp EACH EYE BID 03/11/22 07/03/22 History esomeprazole magnesium 40 mg 40 mg PO DAILY 03/11/22 07/03/22 History capsule,delayed release flecainide 50 mg tablet 50 mg PO BID 03/11/22 07/03/22 History furosemide 40 mg tablet 40 mg PO QAM 03/11/22 07/03/22 History insulin glargine 100 unit/mL (3 12 unit subcut QAM 03/11/22 07/03/22 History mL) subcutaneous pen (Lantus Solostar U-100 Insulin) levothyroxine 75 mcg tablet See Rx Instructions .Route .COMPLEX 03/11/22 07/03/22 History linaclotide 290 mcg capsule 290 mcg PO QAM 03/11/22 07/03/22 History (Linzess) metoclopramide HCl 10 mg tablet 10 mg PO TID 03/11/22 07/03/22 History metolazone 2.5 mg tablet 2.5 mg PO DAILY 03/11/22 07/03/22 History nitroglycerin 0.4 mg sublingual 0.4 mg sublingual PRN PRN Chest 03/11/22 07/03/22 History tablet Pain pediatric [id number] 1 tablet PO DAILY 03/11/22 07/03/22 History (Multi-Vitamins with Iron chewable tablet) polyethylene glycol 3350 17 17 g PO DAILY 03/11/22 07/03/22 History gram/dose oral powder potassium chloride 10 mEq 20 meq PO QID 03/11/22 07/03/22 History tablet,extended release (Klor-Con) rosuvastatin 10 mg tablet 10 mg PO HS 03/11/22 07/03/22 History simethicone 125 mg chewable tablet 125 mg PO BID 03/11/22 07/03/22 History sitagliptin phosphate 100 mg 100 mg PO DAILY 03/11/22 07/03/22 History tablet (Januvia) spironolactone 25 mg
--- NOTE | 2022-07-15 07:15 | WPDHPUPDATE1 ---
History and Physical Update Update Date/Time: 07/15/22 07:15 History and Physical has been reviewed, including an updated exam of the patient. There are NO changes in the patient's condition. Risks, benefits, and alternatives have been discussed and questions answered. Patient agrees to proceed with procedure.
[2022-07-15] MEDS: LACTATED RINGERS 1,000 ML 30 ML IV CONT (12:35)
[2022-07-15 12:48] VITALS: BP 118/45; PULSE 76; RESP 16; TEMP 36.2; O2SAT 93
[2022-07-15 12:53] LABS: Glucose Point of Care 169 mg/dl (65-105)
--- NOTE | 2022-07-15 14:01 | WPDANESEPPF ---
Anes - Initial Pre Proc Eval Procedure: Operation Date: 07/15/22 14:00 Proposed Procedures p Cystoscopy, Insertion Suprapubic Catheter - Hussain Ray MD Date/Time: 07/15/22 14:01 Surgeon: Hussain Ray MD Pre Op Diagnosis: neurogenic bladder Patient Data Age: 81 Gender: F Height: 1.65 m Weight: 75 kg Last Vital Signs Temp 36.2 C L 07/15/22 12:48 Pulse 76 07/15/22 12:48 Resp 16 07/15/22 12:48 BP 118/45 L 07/15/22 12:48 Pulse Ox 93 07/15/22 12:48 O2 Del Method Room Air 07/15/22 12:48 Allergies Allergy/AdvReac Type Severity Reaction Status Date / Time black pepper Allergy Unknown Verified 07/03/22 08:35 diltiazem Allergy Unknown Verified 07/03/22 08:35 donepezil Allergy Unknown Verified 07/03/22 08:35 fluticasone Allergy Unknown Verified 07/03/22 08:35 metformin Allergy Unknown Verified 07/03/22 08:35 Home Medications Medication Instructions Recorded Confirmed Type lactulose 20 gram oral packet 20 g PO QID PRN constipation #30 ea 02/05/22 07/03/22 Rx Saccharomyces boulardii 250 mg 250 mg PO BID 03/11/22 07/03/22 History capsule (Florastor) anastrozole 1 mg tablet 1 mg PO DAILY 03/11/22 07/03/22 History apixaban 5 mg tablet (Eliquis) 5 mg PO BID 03/11/22 07/03/22 History bromfenac 0.07 % eye drops 1 drp RIGHT EYE QAM 03/11/22 07/03/22 History (Prolensa) calcium polycarbophil 625 mg 1,250 mg PO TID 03/11/22 07/03/22 History tablet (Fiber-Lax) cholecalciferol (vitamin D3) 25 25 mcg PO DAILY 03/11/22 07/03/22 History mcg (1,000 unit) tablet cranberry extract 425 mg capsule 425 mg PO DAILY 03/11/22 07/03/22 History cyanocobalamin (vitamin B-12) 1,000 mcg PO DAILY 03/11/22 07/03/22 History 1,000 mcg tablet docusate sodium 100 mg capsule 100 mg PO EVERY OTHER DAY 03/11/22 07/03/22 History dorzolamide 2 % eye drops 1 drp EACH EYE BID 03/11/22 07/03/22 History esomeprazole magnesium 40 mg 40 mg PO DAILY 03/11/22 07/03/22 History capsule,delayed release flecainide 50 mg tablet 50 mg PO BID 03/11/22 07/03/22 History furosemide 40 mg tablet 40 mg PO QAM 03/11/22 07/03/22 History insulin glargine 100 unit/mL (3 12 unit subcut QAM 03/11/22 07/03/22 History mL) subcutaneous pen (Lantus Solostar U-100 Insulin) levothyroxine 75 mcg tablet See Rx Instructions .Route .COMPLEX 03/11/22 07/03/22 History linaclotide 290 mcg capsule 290 mcg PO QAM 03/11/22 07/03/22 History (Linzess) metoclopramide HCl 10 mg tablet 10 mg PO TID 03/11/22 07/03/22 History metolazone 2.5 mg tablet 2.5 mg PO DAILY 03/11/22 07/03/22 History nitroglycerin 0.4 mg sublingual 0.4 mg sublingual PRN PRN Chest 03/11/22 07/03/22 History tablet Pain pediatric [id number]-[id number] 1 tablet PO DAILY 03/11/22 07/03/22 History (Multi-Vitamins with Iron chewable tablet) polyethylene glycol 3350 17 17 g PO DAILY 03/11/22 07/03/22 History gram/dose oral powder potassium chloride 10 mEq 20 meq PO QID 03/11/22 07/03/22 History tablet,extended release (Klor-Con) rosuvastatin 10 mg tablet 10 mg PO HS 03/11/22 07/03/22 History simethicone 125 mg chewable tablet 125 mg PO BID 03/11/22 07/03/22 History sitagliptin phosphate 100 mg 100 mg PO DAILY 03/11/22 07/03/22 History tablet (Januvia) spironolactone 25 mg tablet 25 mg PO QAM 03/11/22 07/03/22 History trospium 20 mg tablet 20 mg PO BID 03/11/22 07/03/22 History verapamil 120 mg tablet,extended 120 mg PO HS 03/11/22 07/03/22 History release hydrocodone 5 mg-acetaminophen 325 1 tablet PO Q6H PRN pain #20 tabs 03/25/22 07/03/22 Rx mg tablet miconazole nitrate 2 % topical 1 applic topical BID 05/30/22 07/03/22 History cream amitriptyline 25 mg tablet 25 mg PO BID 07/03/22 07/03/22 History collagenase clostridium histo. 250 1 applic topical DAILY 07/03/22 07/03/22 History unit/gram topical ointment (Santyl) Laboratory Tests 07/15/22 12:51 POC Capillary Glucose 169 mg/dl H mg/dl (65-105) Patient hx anesthe
[2022-07-15] MEDS: ceFAZolin 2 GM/D5W 50 ML 2 GM/50 ML BAG IVPB (14:37)
[2022-07-15] MEDS: LIDOCAINE HCL 2% GEL UROJET 10 ML PKG MUCOUS MEM (14:59)
[2022-07-15 15:15] VITALS: BP 92/40; PULSE 75; RESP 14; O2SAT 94
[2022-07-15 15:45] VITALS: BP 100/50; PULSE 74; RESP 16; O2SAT 94
[2022-07-15 16:10] VITALS: BP 102/50
--- NOTE | 2022-07-17 16:58 | P.OP_ITS ---
Procedure Note - Detailed Date of Procedure 07/15/22 Pre-op Diagnosis neurogenic bladder Post-op Diagnosis Same Procedure Performed Cystoscopy with placement of suprapubic to Surgeon Hussain Ray MD Anesthesia MAC and Local Indications this with an indwelling Schmitt catheter. She has had for some time. I had previously placed a suprapubic tube. Her usp dislodged it. She is here today for repeat placement. She understands risks of bleeding, infection, damage to the bowel or surrounding organs, leakage around the suprapubic tube. She also understands the risks of leakage per urethra and malignancy. She agrees to proceed Description of Procedure she is correctly identified. Informed consents obtained. She brought the operating room. She was given MAC anesthesia. She was placed in dorsal thigh position. All pressure points were padded. She is going appropriate perioperative antibiotics. A time-out performed. I anesthetized the skin 2 fingerbreadths cephalad to the pubic bone. I performed cystoscopy. She has small capacity bladder. She was placed in steep Trendelenburg. The bladder was filled. I entered the bladder with a finer needle. I placed a guidewire through the finer needle. I made a skin pio. I dilated up the suprapubic tube track. I then placed a 16 [place] tip Schmitt over wire. Silk suture was used to secure the suprapubic tube to the skin. Dressing was applied. It was placed to gravity drainage. She was awakened and transferred the PACU in stable condition Estimated Blood Loss 2 Urine Output 15
== END 2022-07-15 16:15 | disposition home or self-care (01) ==
PROVIDERS: PCP Family Medicine; Visit Provider Urology
PROC: 0T9B30Z Drainage of Bladder with Drainage Device, Percutaneous Approach (ICD-10-PCS; CPT 51102; principal; 2022-07-15 14:00)
DX: N31.9 Neuromuscular dysfunction of bladder, unspecified (principal); R33.8 Other retention of urine; I48.91 Unspecified atrial fibrillation; I25.10 Atherosclerotic heart disease of native coronary artery without angina pectoris; K59.09 Other constipation; I11.0 Hypertensive heart disease with heart failure; I50.9 Heart failure, unspecified; G11.4 Hereditary spastic paraplegia; F03.90 Unspecified dementia, unspecified severity, without behavioral disturbance, psychotic disturbance, mood disturbance, and anxiety; E03.9 Hypothyroidism, unspecified; G35 Multiple sclerosis; G47.33 Obstructive sleep apnea (adult) (pediatric); E21.3 Hyperparathyroidism, unspecified; E11.9 Type 2 diabetes mellitus without complications; Z86.73 Personal history of transient ischemic attack (TIA), and cerebral infarction without residual deficits; Z85.3 Personal history of malignant neoplasm of breast; Z86.711 Personal history of pulmonary embolism; Z79.811 Long term (current) use of aromatase inhibitors; Z79.4 Long term (current) use of insulin; Z79.891 Long term (current) use of opiate analgesic
CPT/HCPCS: 51040; 82948; C2627; J0690; J2704; J3010; J7030; J7120

== ENCOUNTER 2022-08-11 11:47 | Inpatient (IN) | payer MEDICARE, MEDICAID, SELFPAY ==
[2022-08-11] VITALS (39 sets, daily range): BP systolic 111–135; BP diastolic 43–52; PULSE 77–95; RESP 14–30; TEMP 35.6–37.1; O2SAT 95–99; BMI 27.5
--- NOTE | ~2022-08-11 | XR_ITS ---
EXAMINATION: XR chest 2V DATE: 08/11/2022 12:18 INDICATION: Shortness of breath TECHNIQUE: AP and lateral views of the chest are obtained. COMPARISON: None available FINDINGS: There are airspace opacities of the lingula and left lower lobe. No pleural effusion or pne umothorax. The cardiomediastinal silhouette is normal. There is moderate thoracic spondylosis. Surgic al clips in the right upper quadrant are likely from prior cholecystectomy. IMPRESSION: 1. Airspace opacities of the lingula and left lower lobe, likely pneumonia. Reviewed, dictated and finalized at location A.
--- NOTE | 2022-08-11 11:50 | ECG_ITS ---
Measurements Intervals [place] Rate: 89 P: 26 KS: 152 QRS: -50 QRSD: 106 T: 74 QT: 348 QTc: 423 Interpretive Statements SINUS RHYTHM LEFT ANTERIOR FASCICULAR BLOCK BASELINE ARTIFACT- I, II, AVL, V6 ABNORMAL ECG NO PREVIOUS ECG AVAILABLE FOR COMPARISON Electronically Signed On 08-11-2022 15:55:30 CDT by Emmanuel Tamez D.O.
[2022-08-11 12:21] LABS: Basophils Absolute Auto 0.1 K/mm3 (0.0-0.1); Basophils Percent Auto 0.4 % (0.2-1.2); Eosinophils Absolute Auto 1.1 K/mm3 (0-0.3); Eosinophils Percent Auto 9.6 % (0-4.4); Hematocrit 42.4 % (37.0-47.0); Hemoglobin 13.3 g/dL (12.0-15.0); Immature Granulocyte Absolute 0.07 K/mm3 (0.00-0.031); Immature Granulocyte Percent A 0.6 % (0-0.5); Lymphocytes Absolute Auto 1.09 K/mm3 (0.9-3.2); Lymphocytes Percent Auto 9.8 % (18.3-44.2); Mean Corpuscular HGB Conc 31.4 g/dl (32-36); Mean Corpuscular Hemoglobin 24.1 pg (26-34); Mean Platelet Volume 11.2 fl (7.4-10.4); Monocytes Absolute Auto 3.2 K/mm3 (0.1-0.6); Monocytes Percent Auto 28.4 % (2.6-8.5); Neutrophils Absolute Auto 5.7 K/mm3 (1.3-6.7); Neutrophils Percent Auto 51.2 % (45.5-73.1); Platelet Count Result 213 k/mm3 (150-375); Red Blood Count 5.51 M/mm3 (4.2-5.4); Red Cell Distribution Width 19.1 % (11.5-14.5); White Blood Count 11.2 K/mm3 (4.5-10.0)
[2022-08-11 12:32] LABS: Alanine Aminotransferase 24 U/L (6-35); Albumin Level 3.4 g/dL (3.5-5.1); Alkaline Phosphatase 107 U/L (38-126); Anion Gap 6 mmol/L (8-16); Aspartate Amino Transferase 20 U/L (14-36); Bilirubin,Total 0.4 mg/dL (0.2-1.3); Blood Urea Nitrogen 15 mg/dL (7-17); Calcium 10.2 mg/dL (8.4-10.2); Carbon Dioxide 24 mmol/L (22-30); Chloride 101 mmol/L (98-107); Estimated Glomerular Filt Rate > 60; Glucose 262 mg/dL (65-110); Potassium 3.9 mmol/L (3.4-5.0); Sodium 131 mmol/L (137-145)
--- NOTE | 2022-08-11 13:09 | ED.SOB ---
HPI - SOB/Dyspnea General Chief Complaint: Shortness of Breath/Dyspnea Stated Complaint: increased confusion Time Seen by Provider: 08/11/22 11:59 History of Present Illness HPI Narrative: This is an 81-year-old female with past history of dementia and MS, who presents emergency department for cough for the past 3 days and increasing fatigue. The patient's daughter who is at bedside states 3 days ago, she underwent x-rays and to negative COVID tests for a cough. She states x-rays appeared normal, though the patient was started on Levaquin. Today, the patient was found short of breath at her [facility] with O2 sats at 90% on room air and appeared confused (A&O x1 versus a baseline of A&O x2-3. Related Data Home Medications Medication Instructions Recorded Confirmed Saccharomyces boulardii 250 mg 250 mg PO BID 03/11/22 08/11/22 capsule (Florastor) anastrozole 1 mg tablet 1 mg PO DAILY 03/11/22 08/11/22 apixaban 5 mg tablet (Eliquis) 5 mg PO BID 03/11/22 08/11/22 bromfenac 0.07 % eye drops 1 drp RIGHT EYE QAM 03/11/22 08/11/22 (Prolensa) calcium polycarbophil 625 mg 1,250 mg PO TID 03/11/22 08/11/22 tablet (Fiber-Lax) cranberry extract 425 mg capsule 425 mg PO 1200 03/11/22 08/11/22 docusate sodium 100 mg capsule 100 mg PO EVERY OTHER DAY 03/11/22 08/11/22 dorzolamide 2 % eye drops 1 drp EACH EYE BID 03/11/22 08/11/22 esomeprazole magnesium 40 mg 40 mg PO DAILY 03/11/22 08/11/22 capsule,delayed release flecainide 50 mg tablet 50 mg PO BID 03/11/22 08/11/22 furosemide 40 mg tablet 40 mg PO QAM 03/11/22 08/11/22 insulin glargine 100 unit/mL (3 12 unit subcut HS 03/11/22 08/11/22 mL) subcutaneous pen (Lantus Solostar U-100 Insulin) levothyroxine 75 mcg tablet 75 mcg PO DAILY 03/11/22 08/11/22 linaclotide 290 mcg capsule 290 mcg PO QAM 03/11/22 08/11/22 (Linzess) metoclopramide HCl 10 mg tablet 10 mg PO TID 03/11/22 08/11/22 nitroglycerin 0.4 mg sublingual 0.4 mg sublingual PRN PRN Chest 03/11/22 08/11/22 tablet Pain polyethylene glycol 3350 17 17 g PO Q48H 03/11/22 08/11/22 gram/dose oral powder potassium chloride 10 mEq 20 meq PO QID 03/11/22 08/11/22 tablet,extended release (Klor-Con) rosuvastatin 10 mg tablet 10 mg PO HS 03/11/22 08/11/22 simethicone 125 mg chewable tablet 125 mg PO TID 03/11/22 08/11/22 sitagliptin phosphate 100 mg 100 mg PO DAILY 03/11/22 08/11/22 tablet (Januvia) spironolactone 25 mg tablet 25 mg PO QAM 03/11/22 08/11/22 miconazole nitrate 2 % topical 1 applic topical BID 05/30/22 08/11/22 cream collagenase clostridium histo. 250 1 applic topical DAILY 07/03/22 08/11/22 unit/gram topical ointment (Santyl) buspirone 5 mg tablet 5 mg PO TID 08/11/22 08/11/22 guaifenesin 600 mg tablet, 600 mg PO Q12H 08/11/22 08/11/22 extended release 12 hr (Mucinex) insulin glargine 100 unit/mL (3 12 unit subcut QAM 08/11/22 08/11/22 mL) subcutaneous pen (Lantus Solostar U-100 Insulin) ipratropium 0.5 mg-albuterol 3 mg 3 ml inhalation QID 08/11/22 08/11/22 (2.5 mg base)/3 mL nebulization soln lactulose 10 gram/15 mL oral 15 ml PO TID 08/11/22 08/11/22 solution levofloxacin 500 mg tablet 500 mg PO DAILY 08/11/22 08/11/22 levothyroxine 75 mcg tablet 150 mcg DAILY 08/11/22 08/11/22 loratadine 10 mg tablet 10 mg PO DAILY 08/11/22 08/11/22 Allergies Allergy/AdvReac Type Severity Reaction Status Date / Time black pepper Allergy Unknown Verified 08/11/22 18:55 diltiazem Allergy Unknown Verified 08/11/22 18:55 donepezil Allergy Unknown Verified 08/11/22 18:55 fluticasone Allergy Unknown Verified 08/11/22 18:55 metformin Allergy Unknown Verified 08/11/22 18:55 [facility] Past Medical History Medical History (Updated 08/13/22 @ 10:30 by Marlena Deleon, DO) Atherosclerotic heart disease Atrial fibrillation Breast cancer Chronic idiopathic constipation Congestive heart failure Familial spastic paraplegia GERD (gastroesophageal reflux disease) Glaucoma Hereditary spastic para
[2022-08-11] MEDS: CEFEPIME 2 GM/NS 50 ML 2 GM/50 ML BAG IVPB ×2 (13:23→23:00)
[2022-08-11 13:37] LABS: Lactic Acid Reflex 1.6 mmol/L (0.7-2.0)
[2022-08-11 13:53] LABS: Appearance Urine Turbid (Clear); Bacteria Urine 4+ /hpf; Bilirubin Urine Negative (Negative); Blood Urine 3+ (Negative); Color Urine Yellow (Yellow); Glucose Urine UA Trace mg/dL (Negative); Ketones Urine Trace mg/dL (Negative); Leukocyte Esterase Ur 2+ LEU/UL (Negative); Need Manual Microscopic Reviewed; Nitrate Urine Positive (Negative); Protein Urine 3+ mg/dL (Negative); RBC Urine >100 /hpf (0-2); Specific Grav Ur 1.017 (1.001-1.035); Squamous Epithelial Cell Urine None seen /hpf (Few); Urobilinogen Urine 0.2 mg/dL (<2.0); WBC Urine >100 /hpf; pH Urine 5.5 (5.0-9.0)
[2022-08-11 13:55] LABS: Add Urine Microscopic? YES
[2022-08-11 14:06] LABS: Influenza A QL RT-PCR Negative (Negative); Influenza B QL RT-PCR Negative (Negative); SARS-CoV-2 RNA PCR Negative
--- NOTE | 2022-08-11 15:31 | PM.IMHP ---
H&P: HPI History of Present Illness Date/Time: 08/11/22 15:31 Chief Complaint: Short of breath Narrative: This is an 81-year-old female patient who has a history of MS and dementia. The patient presented to the emergency room with a complaint of cough for the last 3 days. She has had increased fatigue and wheezes. The patient is at a residential home and has been seeing wound care for large decubitus ulcer on her sacral area. Her daughter was upset that the patient was here because wound Care has been seeing her at the facility and the patient is making progress. The daughter is at the bedside answering questions. The daughter stated that the patient had an x-ray 3 days ago and she was also negative for COVID. According to the daughter her chest x-ray was normal although the patient was started on Levaquin. Today the patient was more short of breath and confused. At the halfway her O2 saturations were 90%. Typically the patient is a and O x3. Her white count is 11.2. Her sodium is 131 but is up from 128 in May. Her blood glucose is 262. Lactic acid is 1.6 just normal. The patient is also positive for UTI. Influenza a being over negative. Chest x-ray was read as airspace opacities of the lingular and left lower lobe likely pneumonia. The patient was given cefepime, azithromycin and nebulizer treatment in the emergency room. The patient is being admitted to observation status on the date of service of 08/11/2022 Review of Systems Review of Systems: All systems reviewed & are unremarkable except as noted in HPI and below Constitutional: Constitutional: Reports as per HPI and Reports no additional constitutional complaints Eyes: Eyes: Reports as per HPI and Reports no additional eye complaints ENT: Reports system reviewed and no additional complaints, except as documented and Reports Normal hearing present Cardiovascular: Cardiovascular: Reports no additional cardiovascular complaints Respiratory: Respiratory: Reports no additional respiratory complaints and Reports no additional respiratory complaints Gastrointestinal: Gastrointestinal: Reports as per HPI and Reports no additional gastrointestinal complaints Musculoskeletal: Musculoskeletal: Reports no additional musculoskeletal complaints Integumentary/Breasts: Skin/Breast: Reports system reviewed and no additional complaints, except as docu and Reports as per HPI Neurologic: Reports system reviewed and no additional complaints, except as documented, Reports as per HPI and Reports Normal hearing present Psychiatric: Psychiatric: Reports no additional psychiatric complaints and Reports as per HPI Endocrine: Endocrine: Reports no additional endocrine complaints Hematologic/Lymphatic: Hematologic/Lymphatic: Reports no additional hematologic/lymphatic complaints Allergic/Immunologic: Allergic/Immunologic: Reports no additional allergic/immunologic complaints [facility] Past Medical History Medical History (Updated 08/11/22 @ 20:51 by Eneida Faye NP) Atherosclerotic heart disease Atrial fibrillation Breast cancer Chronic idiopathic constipation Congestive heart failure GERD (gastroesophageal reflux disease) Glaucoma Hereditary spastic paraplegia History of pulmonary embolism Hyperparathyroidism Hypertension Hypothyroidism Multiple sclerosis Neurogenic bladder CATY (obstructive sleep apnea) uncompliant with CPAP TIA (transient ischemic attack) Type 2 diabetes mellitus Surgical History Surgical History (Updated 08/11/22 @ 15:35 by Eneida Faye NP) Chronic suprapubic catheter H/O: hysterectomy Surgical history unknown Family History Family History (Updated 08/11/22 @ 15:36 by Eneida Faye NP) Father Spastic paralysis Mother Breast cancer Social History Social History (Updated 08/11/22 @ 20:35 by Eneida Faye NP) Social History: Resides at [facility]. She has 3 daughters. 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
[2022-08-11] MEDS: ALBUTEROL SULFATE NEB 2.5 MG/3 ML INH INHALATION (15:41)
[2022-08-11] MEDS: IPRATROPIUM BR 0.02% INH SOLN 0.5 MG/2.5 ML VIAL INHALATION (15:41)
--- NOTE | 2022-08-11 16:42 | PC.NURSE ---
regular diet dinner tray ordered
--- NOTE | 2022-08-11 18:15 | PC.NURSE ---
This patient, Perla Leon, was admitted to [facility] Surg Room 332-01. Patient/family oriented to hospital policies and general routines including ID bracelet, bed and alarms, visiting hours, pain management, procedures, bathroom and other care routines, personal items, smoking policy, room service/diet, and visiting hours. Information on how to activate the Rapid Response Team has been discussed. Patient/Family are encouraged to report perceived risks to care and to ask questions if they do not understand what they are told or what they should do.
--- NOTE | 2022-08-11 18:35 | PC.NURSE ---
This RN transported patient to admission room. Upon arrival to room, pt was cleaned up and placed on dry linens after urine had leaked and pt had BM upon transfer. Pt was propped onto right side in ED, pt turned to left side after being cleaned up.
[2022-08-11 20:38] LABS: Glucose Point of Care 238 mg/dl (65-105)
[2022-08-11] MEDS: DORZOLAMIDE HCL 2% OPHTH DROPS 1 DROP EACH EYE (23:02)
[2022-08-11] MEDS: POTASSIUM CHLORIDE 10 MEQ TABLET.ER 20 MEQ PO (23:02)
[2022-08-11] MEDS: LACTULOSE 20 GM/30 ML UDC 15 GM PO (23:02)
[2022-08-11] MEDS: busPIRone HCL 5 MG TABLET PO (23:02)
[2022-08-11] MEDS: calcium polycarbophiL 625 MG TABLET 1250 MG PO (23:04)
[2022-08-11] MEDS: APIXABAN 5 MG TABLET PO (23:05)
[2022-08-11] MEDS: FLECAINIDE ACETATE 50 MG TABLET PO (23:05)
[2022-08-11] MEDS: SIMETHICONE 125 MG CHEW TAB PO (23:05)
[2022-08-11] MEDS: SACCHAROMYCES BOULARDII 250 MG CAPSULE PO (23:06)
[2022-08-11] MEDS: guaiFENesin 12 HR 600 MG TABCR PO (23:06)
[2022-08-11] MEDS: MICONAZOLE NITRATE 2% CREAM 30 GM TUBE 1 APPLIC TOPICAL (23:06)
[2022-08-11] MEDS: ROSUVASTATIN 10 MG TABLET PO (23:07)
[2022-08-11] MEDS: INSULIN GLARGINE (*BKC) 100 UNITS/ML 12 UNITS SUB-Q (23:08)
[2022-08-12] VITALS (16 sets, daily range): BP systolic 120–143; BP diastolic 48–69; PULSE 68–83; RESP 15–20; TEMP 35.8–36.2; O2SAT 94–97; BMI 27.5
[2022-08-12] MEDS: IPRATROPIUM BR 0.02% INH SOLN 0.5 MG/2.5 ML VIAL INHALATION ×4 (00:47→19:47)
[2022-08-12] MEDS: ALBUTEROL SULFATE NEB 2.5 MG/3 ML INH INHALATION ×4 (00:47→19:47)
[2022-08-12] MEDS: LEVOTHYROXINE SODIUM 75 MCG TABLET PO (05:26)
[2022-08-12] MEDS: CEFEPIME 2 GM/NS 50 ML 2 GM/50 ML BAG IVPB ×3 (05:26→20:41)
[2022-08-12 06:25] LABS: Basophils Percent Auto 0.3 % (0.2-1.2); Eosinophils Absolute Auto 0.1 K/mm3 (0-0.3); Eosinophils Percent Auto 0.9 % (0-4.4); Hematocrit 38.7 % (37.0-47.0); Hemoglobin 12.3 g/dL (12.0-15.0); Immature Granulocyte Absolute 0.05 K/mm3 (0.00-0.031); Immature Granulocyte Percent A 0.5 % (0-0.5); Lymphocytes Absolute Auto 0.95 K/mm3 (0.9-3.2); Lymphocytes Percent Auto 10.1 % (18.3-44.2); Mean Corpuscular HGB Conc 31.8 g/dl (32-36); Mean Corpuscular Volume 75.4 fl (80-100); Mean Platelet Volume 10.9 fl (7.4-10.4); Monocytes Absolute Auto 2.5 K/mm3 (0.1-0.6); Monocytes Percent Auto 26.8 % (2.6-8.5); Neutrophils Absolute Auto 5.8 K/mm3 (1.3-6.7); Neutrophils Percent Auto 61.4 % (45.5-73.1); Platelet Count Result 201 k/mm3 (150-375); Red Blood Count 5.13 M/mm3 (4.2-5.4); Red Cell Distribution Width 18.2 % (11.5-14.5); White Blood Count 9.4 K/mm3 (4.5-10.0)
[2022-08-12 06:35] LABS: Anion Gap 3 mmol/L (8-16); Blood Urea Nitrogen 13 mg/dL (7-17); Calcium 10.2 mg/dL (8.4-10.2); Carbon Dioxide 25 mmol/L (22-30); Chloride 102 mmol/L (98-107); Estimated CRCL calculation 88 ml/min; Estimated Glomerular Filt Rate > 60; Glucose 203 mg/dL (65-110); Magnesium 1.9 mg/dL (1.6-2.3); Sodium 130 mmol/L (137-145)
[2022-08-12 07:19] LABS: Anisocytosis 1+ (NORMAL); Hypochromasia 1+ (NORMAL); Microcytosis 1+ (NORMAL); Platelet Estimate Adequate (Adequate); Schistocytes None Seen (NORMAL)
[2022-08-12 08:21] LABS: Glucose Point of Care 195 mg/dl (65-105)
--- NOTE | 2022-08-12 08:41 | PM.IMPN ---
Progress Note: A&P Assessment and Plan (1) Healthcare-associated pneumonia: Code(s): J18.9 - Pneumonia, unspecified organism Status: Acute Assessment and Plan: Chest x-ray 08/11 showed possible pneumonia of the lingula/left lower lobe, vancomycin and cefepime started admission 08/11 Status post a few days of levaquin at the nursing facility prior to being admitted Supportive care, Mucinex, nebulizer treatments, oxygen as needed, tessalon perles, robitussin prn Blood and sputum cultures pending 08/12: 94% on 2 L nasal cannula, day 2 of vancomycin/cefepime, will initiate azithromycin 500 mg IV to complete a 3 day course, last dose 08/14. (2) UTI (urinary tract infection): Code(s): N39.0 - Urinary tract infection, site not specified Status: Acute Assessment and Plan: Follow-up urine culture, continue chronic suprapubic catheter Currently on vancomycin, cefepime, started 08/11, and azithromycin, started 08/12 Patient has on cefepime and vancomycin. She has a chronic suprapubic catheter. (3) Type 2 diabetes mellitus: Code(s): E11.9 - Type 2 diabetes mellitus without complications Status: Acute Assessment and Plan: Accu-Cheks AC and HS with sliding scale insulin and hypoglycemic protocol Continue Januvia Blood glucose reviewed 08/12 (4) Acute on chronic urinary retention: Code(s): R33.9 - Retention of urine, unspecified Status: Acute Assessment and Plan: Continue with suprapubic catheter. (5) Decubitus ulcer of sacral area: Code(s): L89.159 - Pressure ulcer of sacral region, unspecified stage Status: Acute Assessment and Plan: Appreciate Wound Care consult, turn q.2 hours. Continue with santyl (6) GERD (gastroesophageal reflux disease): Code(s): K21.9 - Gastro-esophageal reflux disease without esophagitis Status: Acute Assessment and Plan: Continue with PPI (7) Hypothyroidism: Code(s): E03.9 - Hypothyroidism, unspecified Status: Acute Assessment and Plan: TSH 1.17 08/12 Continue with levothyroxine 150 mcg (8) Hypertension: Code(s): I10 - Essential (primary) hypertension Status: Acute Assessment and Plan: Continue with Lasix 40 mg p.o. daily (9) Glaucoma: Code(s): H40.9 - Unspecified glaucoma Status: Acute Assessment and Plan: Continue home eye drops Plan DVT prophylaxis with SCDs GI prophylaxis not indicated Code status full code Subjective Date/time seen: 08/12/22 08:41 Interval history: 81-year-old female with past medical history significant for MS and dementia is presenting with generalized weakness, cough and altered mental status from a nursing facility, being treated for HCAP, UTI and sacral decubitus ulcer. No overnight events noted. No chest pain or shortness of breath. No nausea, vomiting or diarrhea. No fevers or chills. Patient is c/o cough. States she is feeling better than when she came in. Review of Systems Review of Systems: 12 point review of systems was assessed and was negative except as noted in the HPI Exam Narrative: General: No acute distress, alert and oriented per baseline, chronically ill appearing elderly female HEENT: Atraumatic, normocephalic, mucous membranes moist CV: Regular rate and rhythm, S1, S2 Lungs: Scattered crackles on left, diminished at bases Abdomen: Soft, nontender, nondistended, suprapubic catheter in place Extremities: Normal to inspection Skin: No rashes noted, no lesions or wounds seen Psych: Dysthymic, somewhat flattened affect Objective Data Vital Signs Vital Signs: Vital Signs - 24 hr 08/11/22 11:37 08/11/22 15:41 08/11/22 15:41 Temperature 98.7 F Pulse Rate 93 80 Respiratory Rate 25 H 20 Blood Pressure 135/51 L Pulse Oximetry 97 97 Oxygen Delivery Nasal Cannula Nasal Cannula Oxygen Flow Rate 2 2 Fraction of Inspired
[2022-08-12] MEDS: LORATADINE 10 MG TABLET PO (09:00)
[2022-08-12] MEDS: LINACLOTIDE 145 MCG CAPSULE 290 MCG PO (09:00)
[2022-08-12] MEDS: FLECAINIDE ACETATE 50 MG TABLET PO ×2 (09:00→17:07)
[2022-08-12] MEDS: calcium polycarbophiL 625 MG TABLET 1250 MG PO ×3 (09:00→17:17)
[2022-08-12] MEDS: METOCLOPRAMIDE HCL 10 MG TABLET PO ×2 (09:01→17:17)
[2022-08-12] MEDS: SPIRONOLACTONE 25 MG TABLET PO (09:01)
[2022-08-12] MEDS: guaiFENesin 12 HR 600 MG TABCR PO ×2 (09:01→20:42)
[2022-08-12] MEDS: APIXABAN 5 MG TABLET PO ×2 (09:02→17:19)
[2022-08-12] MEDS: FUROSEMIDE 40 MG TABLET PO (09:02)
[2022-08-12] MEDS: busPIRone HCL 5 MG TABLET PO ×3 (09:02→17:18)
[2022-08-12] MEDS: SACCHAROMYCES BOULARDII 250 MG CAPSULE PO ×2 (09:02→17:20)
[2022-08-12] MEDS: PANTOPRAZOLE 40 MG TABLET PO (09:02)
[2022-08-12] MEDS: SIMETHICONE 125 MG CHEW TAB PO ×3 (09:02→17:20)
[2022-08-12] MEDS: MICONAZOLE NITRATE 2% CREAM 30 GM TUBE 1 APPLIC TOPICAL ×2 (09:03→17:17)
[2022-08-12] MEDS: POTASSIUM CHLORIDE 10 MEQ TABLET.ER 20 MEQ PO ×4 (09:03→20:42)
[2022-08-12] MEDS: DORZOLAMIDE HCL 2% OPHTH DROPS 1 DROP EACH EYE ×2 (09:04→17:09)
[2022-08-12] MEDS: LACTULOSE 20 GM/30 ML UDC 15 GM PO ×3 (09:04→17:07)
[2022-08-12] MEDS: ANASTROZOLE (*CHEMO) 1 MG TABLET PO (09:05)
[2022-08-12] MEDS: DOCUSATE SODIUM 100 MG CAPSULE PO (09:06)
[2022-08-12] MEDS: INSULIN GLARGINE (*BKC) 100 UNITS/ML 12 UNITS SUB-Q ×3 (09:07→20:44)
[2022-08-12] MEDS: COLLAGENASE OINT 30 GM TUBE 1 APPLIC TOPICAL (10:29)
[2022-08-12 11:53] LABS: Glucose Point of Care 275 mg/dl (65-105)
[2022-08-12] MEDS: INSULIN ASPART (*BKC) 100 UNITS/ML SUB-Q ×2 (12:11→17:21)
[2022-08-12] MEDS: TOLNAFTATE 1% POWDER 45 GM BTL 1 APPLIC TOPICAL ×2 (12:57→20:43)
--- NOTE | 2022-08-12 13:00 | WPDURCON ---
Assessment and Plan Assessment and plan (1) UTI (urinary tract infection): Code(s): N39.0 - Urinary tract infection, site not specified Status: Acute Assessment and Plan: Urine culture pending, tailor antibiotics to cutlure results. Continue IV antibiotics. (2) Neurogenic bladder: Code(s): N31.9 - Neuromuscular dysfunction of bladder, unspecified Status: Acute Assessment and Plan: SP tube was exchanged today without any difficulty. Previous SP tube was removed easily, the previous suture was no longer in place, balloon was deflated and olivas removed. She was prepped with Betadine swabs prior to insertion of a 16fr.- catheter. Clear yellow urine was noted on return. The patient tolerated the bedside procedure well. SP tube was secured with a stat lock and a dressing was applied. She will f/u in one month in the office for another monthly change and continue them indefinitely. Urology Consult Note HPI Date Seen: 08/12/22 Time Seen: 13:00 Requesting Physician: Marlena Deleon DO Primary Care Provider: Elizabeth Car MD Consult Narrative Reason for consult: SP tube Change Narrative: Perla Leon is a 81 year old female who presented to the ER yesterday for cough and fatigue. Her Chest X-Ray shows evidence of pneumonia which was admitted for and is being treated for. She previously had a cystoscopy and suprapubic tube placement by Dr. Ray on 07/17/22. She was scheduled today for a f/u in the office with Sosa Boone NP, however was unable to f/u as planned d/t her admission. She also appears to have a UTI as her UA is nitrite positive, but is very lethargic and unable to answer any questions about symptoms. Her daughter is at the bedside. We will change her suprapubic catheter today at the bedside. Review of Systems Review of Systems: ROS unobtainable: Yes unobtainable due to medical condition PMFSH Past Medical History Medical History Atherosclerotic heart disease Atrial fibrillation Breast cancer Chronic idiopathic constipation Congestive heart failure GERD (gastroesophageal reflux disease) Glaucoma Hereditary spastic paraplegia History of pulmonary embolism Hyperparathyroidism Hypertension Hypothyroidism Multiple sclerosis Neurogenic bladder CAYT (obstructive sleep apnea) uncompliant with CPAP TIA (transient ischemic attack) Type 2 diabetes mellitus Surgical History Surgical History Chronic suprapubic catheter H/O: hysterectomy Surgical history unknown Family History Family History Father Spastic paralysis Mother Breast cancer Social History Social History Social History: Resides at [facility]. She has 3 daughters. 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 Code status full code Smoking status: Never smoker Second hand tobacco smoke exposure: No Alcohol intake: never Substance use: never Substance use type: does not use Living arrangements: [facility] Additional living arrangements comments: [facility] care concerns: No Meds Home Medications and Allergies Home Medications Medication Instructions Recorded Confirmed Type Saccharomyces boulardii 250 mg 250 mg PO BID 03/11/22 08/11/22 History capsule (Florastor) anastrozole 1 mg tablet 1 mg PO DAILY 03/11/22 08/11/22 History apixaban 5 mg tablet (Eliquis) 5 mg PO BID 03/11/22 08/11/22 History bromfenac 0.07 % eye drops 1 drp RIGHT EYE QAM 03/11/22 08/11/22 History (Prolensa) calcium polycarbophil 625 mg 1,250 mg PO TID 03/11/22 08/11/22 History tablet (Fiber-Lax) cranberry extract 425 mg capsule 425 mg PO 1200 03/11/22 08/11/22 History docusate sodium 100 mg capsule 100 mg PO EVERY OTHER DAY 03/11/22 08/11/22 History d
[2022-08-12] MEDS: BENZONATATE 100 MG CAPSULE 200 MG PO (17:19)
[2022-08-12 17:20] LABS: Glucose Point of Care 258 mg/dl (65-105)
--- NOTE | 2022-08-12 17:46 | PHAR ---
PT'S HOME MED PROLENSA 0.007% OPTH SOLN VERIFIED BY PHARMACY
[2022-08-12 20:41] LABS: Glucose Point of Care 290 mg/dl (65-105)
[2022-08-12] MEDS: ROSUVASTATIN 10 MG TABLET PO (20:42)
[2022-08-12 21:26] LABS: Hemoglobin A1C 7.7 % (<5.7)
[2022-08-13] VITALS (15 sets, daily range): BP systolic 120–133; BP diastolic 42–65; PULSE 66–85; RESP 16–26; TEMP 35.8–36.9; O2SAT 91–99
[2022-08-13] MEDS: ALBUTEROL SULFATE NEB 2.5 MG/3 ML INH INHALATION ×4 (01:49→20:20)
[2022-08-13] MEDS: IPRATROPIUM BR 0.02% INH SOLN 0.5 MG/2.5 ML VIAL INHALATION ×4 (01:49→20:20)
[2022-08-13] MEDS: LEVOTHYROXINE SODIUM 75 MCG TABLET PO (06:26)
[2022-08-13] MEDS: CEFEPIME 2 GM/NS 50 ML 2 GM/50 ML BAG IVPB ×3 (06:26→21:08)
[2022-08-13] MEDS: DORZOLAMIDE HCL 2% OPHTH DROPS 1 DROP EACH EYE ×2 (07:59→17:28)
[2022-08-13] MEDS: POTASSIUM CHLORIDE 10 MEQ TABLET.ER 20 MEQ PO ×4 (07:59→21:08)
[2022-08-13] MEDS: ANASTROZOLE (*CHEMO) 1 MG TABLET PO (08:00)
[2022-08-13] MEDS: calcium polycarbophiL 625 MG TABLET 1250 MG PO ×3 (08:00→17:28)
[2022-08-13] MEDS: INSULIN ASPART (*BKC) 100 UNITS/ML SUB-Q ×3 (08:00→17:26)
[2022-08-13] MEDS: busPIRone HCL 5 MG TABLET PO ×3 (08:00→17:29)
[2022-08-13] MEDS: METOCLOPRAMIDE HCL 10 MG TABLET PO ×3 (08:00→17:27)
[2022-08-13] MEDS: LORATADINE 10 MG TABLET PO (08:01)
[2022-08-13] MEDS: guaiFENesin 12 HR 600 MG TABCR PO ×2 (08:01→21:08)
[2022-08-13] MEDS: FUROSEMIDE 40 MG TABLET PO (08:01)
[2022-08-13] MEDS: PANTOPRAZOLE 40 MG TABLET PO (08:01)
[2022-08-13] MEDS: SPIRONOLACTONE 25 MG TABLET PO (08:01)
[2022-08-13] MEDS: SIMETHICONE 125 MG CHEW TAB PO ×3 (08:01→17:27)
[2022-08-13] MEDS: SACCHAROMYCES BOULARDII 250 MG CAPSULE PO ×2 (08:01→17:25)
[2022-08-13 08:02] LABS: Glucose Point of Care 213 mg/dl (65-105)
[2022-08-13] MEDS: FLECAINIDE ACETATE 50 MG TABLET PO ×2 (08:02→17:29)
[2022-08-13] MEDS: APIXABAN 5 MG TABLET PO ×2 (08:03→17:29)
[2022-08-13] MEDS: TOLNAFTATE 1% POWDER 45 GM BTL 1 APPLIC TOPICAL ×2 (08:10→21:13)
[2022-08-13] MEDS: MICONAZOLE NITRATE 2% CREAM 30 GM TUBE 1 APPLIC TOPICAL ×2 (08:10→17:31)
[2022-08-13] MEDS: COLLAGENASE OINT 30 GM TUBE 1 APPLIC TOPICAL (08:10)
[2022-08-13] MEDS: LACTULOSE 20 GM/30 ML UDC 15 GM PO ×3 (08:11→17:27)
[2022-08-13] MEDS: polyethylene glycoL 3350 17 GM POWD.PACK PO (09:06)
[2022-08-13] MEDS: BENZONATATE 100 MG CAPSULE 200 MG PO ×3 (09:29→17:32)
[2022-08-13 09:55] LABS: Estimated CRCL calculation 72 ml/min; Estimated Glomerular Filt Rate > 60
--- NOTE | 2022-08-13 10:21 | PM.IMPN ---
Progress Note: A&P Assessment and Plan (1) Healthcare-associated pneumonia: Code(s): J18.9 - Pneumonia, unspecified organism Status: Acute Assessment and Plan: Chest x-ray 08/11 showed possible pneumonia of the lingula/left lower lobe, vancomycin and cefepime started admission 08/11 Status post a few days of levaquin at the nursing facility prior to being admitted Supportive care, Mucinex, nebulizer treatments, oxygen as needed, tessalon perles, robitussin prn Blood and sputum cultures pending 08/12: 94% on 2 L nasal cannula, day 2 of vancomycin/cefepime, will initiate azithromycin 500 mg IV to complete a 3 day course, last dose 08/14 08/13: weaned to 91% on RA, day 3 of abx with vanc + cefepime, day 2/3 of azithromycin 500 mg IV. Anticipate de-escalating abx to augmentin to cover both PNA + UTI since patient will have completed 3 day course of azithro to cover atypicals when cultures/sens come back, would complete 7 day course total, end date 08/17 (2) UTI (urinary tract infection): Code(s): N39.0 - Urinary tract infection, site not specified Status: Acute Assessment and Plan: Urine culture shows proteus, sens pending, continue chronic suprapubic catheter Currently on vancomycin, cefepime, started 08/11, and azithromycin, started 08/12 She has a chronic suprapubic catheter, replaced in the ER 08/12 (3) Type 2 diabetes mellitus: Code(s): E11.9 - Type 2 diabetes mellitus without complications Status: Acute Assessment and Plan: Accu-Cheks AC and HS with sliding scale insulin and hypoglycemic protocol Continue Januvia Blood glucose reviewed 08/13 (4) Acute on chronic urinary retention: Code(s): R33.9 - Retention of urine, unspecified Status: Acute Assessment and Plan: Continue with suprapubic catheter. (5) Decubitus ulcer of sacral area: Code(s): L89.159 - Pressure ulcer of sacral region, unspecified stage Status: Acute Assessment and Plan: Appreciate Wound Care consult, turn q.2 hours. Continue with santyl (6) GERD (gastroesophageal reflux disease): Code(s): K21.9 - Gastro-esophageal reflux disease without esophagitis Status: Acute Assessment and Plan: Continue with PPI (7) Hypothyroidism: Code(s): E03.9 - Hypothyroidism, unspecified Status: Acute Assessment and Plan: TSH 1.17 08/12 Continue with levothyroxine 150 mcg (8) Hypertension: Code(s): I10 - Essential (primary) hypertension Status: Acute Assessment and Plan: Continue with Lasix 40 mg p.o. 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 No overnight events noted. No chest pain or shortness of breath. No nausea, vomiting or diarrhea. No fevers or chills. Her cough remains essentially unchanged today. Family at bedside, state patient looks much better than when she came in. Review of Systems Review of Systems: 12 point review of systems was assessed and was negative except as noted in the HPI Exam Narrative: General: No acute distress, alert and oriented per baseline, chronically ill appearing elderly female
[2022-08-13 10:23] LABS: Vancomycin Trough 17.8 ug/mL (10.0-20.0)
[2022-08-13] MEDS: LINACLOTIDE 145 MCG CAPSULE 290 MCG PO (10:28)
[2022-08-13 10:57] LABS: Basophils Percent Auto 0.4 % (0.2-1.2); Eosinophils Absolute Auto 0.2 K/mm3 (0-0.3); Eosinophils Percent Auto 1.9 % (0-4.4); Hematocrit 43.4 % (37.0-47.0); Hemoglobin 13.5 g/dL (12.0-15.0); Immature Granulocyte Absolute 0.06 K/mm3 (0.00-0.031); Immature Granulocyte Percent A 0.6 % (0-0.5); Lymphocytes Absolute Auto 1.69 K/mm3 (0.9-3.2); Lymphocytes Percent Auto 16.3 % (18.3-44.2); Mean Corpuscular HGB Conc 31.1 g/dl (32-36); Mean Corpuscular Hemoglobin 24.5 pg (26-34); Mean Corpuscular Volume 78.6 fl (80-100); Mean Platelet Volume 11.2 fl (7.4-10.4); Monocytes Absolute Auto 1.7 K/mm3 (0.1-0.6); Monocytes Percent Auto 16.2 % (2.6-8.5); Neutrophils Absolute Auto 6.7 K/mm3 (1.3-6.7); Neutrophils Percent Auto 64.6 % (45.5-73.1); Platelet Count Result 238 k/mm3 (150-375); Red Blood Count 5.52 M/mm3 (4.2-5.4); Red Cell Distribution Width 18.5 % (11.5-14.5); White Blood Count 10.3 K/mm3 (4.5-10.0)
[2022-08-13 11:12] LABS: Alanine Aminotransferase 20 U/L (6-35); Albumin Level 3.4 g/dL (3.5-5.1); Alkaline Phosphatase 100 U/L (38-126); Anion Gap 9 mmol/L (8-16); Aspartate Amino Transferase 23 U/L (14-36); Bilirubin,Total 0.5 mg/dL (0.2-1.3); Blood Urea Nitrogen 17 mg/dL (7-17); Calcium 10.7 mg/dL (8.4-10.2); Carbon Dioxide 25 mmol/L (22-30); Chloride 99 mmol/L (98-107); Estimated CRCL calculation 72 ml/min; Estimated Glomerular Filt Rate > 60; Glucose 229 mg/dL (65-110); Sodium 133 mmol/L (137-145)
[2022-08-13 11:53] LABS: Glucose Point of Care 390 mg/dl (65-105)
[2022-08-13] MEDS: ACETAMINOPHEN 500 MG TABLET 1000 MG PO ×2 (13:41→21:08)
[2022-08-13 17:20] LABS: Glucose Point of Care 360 mg/dl (65-105)
[2022-08-13] MEDS: ROSUVASTATIN 10 MG TABLET PO (21:08)
[2022-08-13] MEDS: INSULIN GLARGINE (*BKC) 100 UNITS/ML 12 UNITS SUB-Q (21:10)
[2022-08-13 22:16] LABS: Glucose Point of Care 396 mg/dl (65-105)
[2022-08-14] VITALS (10 sets, daily range): BP systolic 110–125; BP diastolic 24–41; PULSE 66–85; RESP 18–22; TEMP 35.7–36.7; O2SAT 92–95
[2022-08-14] MEDS: ALBUTEROL SULFATE NEB 2.5 MG/3 ML INH INHALATION ×3 (01:57→13:58)
[2022-08-14] MEDS: IPRATROPIUM BR 0.02% INH SOLN 0.5 MG/2.5 ML VIAL INHALATION ×3 (01:57→13:58)
[2022-08-14] MEDS: CEFEPIME 2 GM/NS 50 ML 2 GM/50 ML BAG IVPB (05:33)
[2022-08-14] MEDS: ACETAMINOPHEN 500 MG TABLET 1000 MG PO ×2 (05:33→13:11)
[2022-08-14] MEDS: LEVOTHYROXINE SODIUM 75 MCG TABLET PO (05:33)
[2022-08-14 06:25] LABS: Basophils Percent Auto 0.4 % (0.2-1.2); Eosinophils Absolute Auto 0.2 K/mm3 (0-0.3); Eosinophils Percent Auto 2.5 % (0-4.4); Hematocrit 37.7 % (37.0-47.0); Hemoglobin 11.9 g/dL (12.0-15.0); Immature Granulocyte Absolute 0.06 K/mm3 (0.00-0.031); Immature Granulocyte Percent A 0.8 % (0-0.5); Lymphocytes Absolute Auto 1.38 K/mm3 (0.9-3.2); Mean Corpuscular HGB Conc 31.6 g/dl (32-36); Mean Corpuscular Hemoglobin 24.3 pg (26-34); Mean Corpuscular Volume 77.1 fl (80-100); Mean Platelet Volume 10.5 fl (7.4-10.4); Monocytes Absolute Auto 1.4 K/mm3 (0.1-0.6); Monocytes Percent Auto 17.6 % (2.6-8.5); Neutrophils Absolute Auto 4.6 K/mm3 (1.3-6.7); Neutrophils Percent Auto 60.7 % (45.5-73.1); Platelet Count Result 228 k/mm3 (150-375); Red Blood Count 4.89 M/mm3 (4.2-5.4); Red Cell Distribution Width 17.8 % (11.5-14.5); White Blood Count 7.7 K/mm3 (4.5-10.0)
[2022-08-14 06:36] LABS: Alanine Aminotransferase 18 U/L (6-35); Alkaline Phosphatase 103 U/L (38-126); Anion Gap 4 mmol/L (8-16); Aspartate Amino Transferase 17 U/L (14-36); Bilirubin,Total 0.4 mg/dL (0.2-1.3); Blood Urea Nitrogen 19 mg/dL (7-17); Calcium 10.3 mg/dL (8.4-10.2); Carbon Dioxide 24 mmol/L (22-30); Chloride 103 mmol/L (98-107); Estimated CRCL calculation 88 ml/min; Estimated Glomerular Filt Rate > 60; Glucose 278 mg/dL (65-110); Sodium 131 mmol/L (137-145)
[2022-08-14 06:45] LABS: Potassium 4.3 mmol/L (3.4-5.0)
[2022-08-14 07:46] LABS: Glucose Point of Care 249 mg/dl (65-105)
[2022-08-14] MEDS: INSULIN ASPART (*BKC) 100 UNITS/ML SUB-Q (08:55)
[2022-08-14] MEDS: DORZOLAMIDE HCL 2% OPHTH DROPS 1 DROP EACH EYE (08:55)
[2022-08-14] MEDS: SIMETHICONE 125 MG CHEW TAB PO ×2 (08:55→12:54)
[2022-08-14] MEDS: LINACLOTIDE 145 MCG CAPSULE 290 MCG PO (08:56)
[2022-08-14] MEDS: POTASSIUM CHLORIDE 10 MEQ TABLET.ER 20 MEQ PO ×2 (08:56→12:54)
[2022-08-14] MEDS: SPIRONOLACTONE 25 MG TABLET PO (08:56)
[2022-08-14] MEDS: ANASTROZOLE (*CHEMO) 1 MG TABLET PO (08:56)
[2022-08-14] MEDS: METOCLOPRAMIDE HCL 10 MG TABLET PO ×2 (08:56→12:54)
[2022-08-14] MEDS: guaiFENesin 12 HR 600 MG TABCR PO (08:56)
[2022-08-14] MEDS: busPIRone HCL 5 MG TABLET PO ×2 (08:56→12:54)
[2022-08-14] MEDS: calcium polycarbophiL 625 MG TABLET 1250 MG PO ×2 (08:56→12:54)
[2022-08-14] MEDS: PANTOPRAZOLE 40 MG TABLET PO (08:57)
[2022-08-14] MEDS: SACCHAROMYCES BOULARDII 250 MG CAPSULE PO (08:57)
[2022-08-14] MEDS: FUROSEMIDE 40 MG TABLET PO (08:57)
[2022-08-14] MEDS: LORATADINE 10 MG TABLET PO (08:57)
[2022-08-14] MEDS: LACTULOSE 20 GM/30 ML UDC 15 GM PO ×2 (08:57→12:54)
[2022-08-14] MEDS: FLECAINIDE ACETATE 50 MG TABLET PO (08:58)
[2022-08-14] MEDS: APIXABAN 5 MG TABLET PO (08:58)
[2022-08-14] MEDS: DOCUSATE SODIUM 100 MG CAPSULE PO (09:02)
[2022-08-14] MEDS: BENZONATATE 100 MG CAPSULE 200 MG PO ×2 (09:02→12:54)
[2022-08-14] MEDS: INSULIN GLARGINE (*BKC) 100 UNITS/ML 12 UNITS SUB-Q (09:04)
[2022-08-14] MEDS: TOLNAFTATE 1% POWDER 45 GM BTL 1 APPLIC TOPICAL (09:10)
[2022-08-14] MEDS: MICONAZOLE NITRATE 2% CREAM 30 GM TUBE 1 APPLIC TOPICAL (09:10)
[2022-08-14] MEDS: COLLAGENASE OINT 30 GM TUBE 1 APPLIC TOPICAL (09:10)
[2022-08-14 11:03] LABS: Glucose Point of Care 411 mg/dl (65-105)
[2022-08-14] MEDS: INSULIN ASPART (*BKC) 100 UNITS/ML 10 UNITS SUB-Q (11:40)
--- NOTE | 2022-08-14 12:08 | PM.DS ---
DS: Admitting Diagnosis Discharge Date 08/14/22 Admitting Diagnosis Short of breath DS: Discharge Diagnosis Discharge Diagnosis (1) Healthcare-associated pneumonia: Code(s): J18.9 - Pneumonia, unspecified organism Status: Acute (2) UTI (urinary tract infection): Code(s): N39.0 - Urinary tract infection, site not specified Status: Acute (3) Type 2 diabetes mellitus: Code(s): E11.9 - Type 2 diabetes mellitus without complications Status: Acute (4) Acute on chronic urinary retention: Code(s): R33.9 - Retention of urine, unspecified Status: Acute (5) Decubitus ulcer of sacral area: Code(s): L89.159 - Pressure ulcer of sacral region, unspecified stage Status: Acute (6) GERD (gastroesophageal reflux disease): Code(s): K21.9 - Gastro-esophageal reflux disease without esophagitis Status: Acute (7) Hypothyroidism: Code(s): E03.9 - Hypothyroidism, unspecified Status: Acute (8) Hypertension: Code(s): I10 - Essential (primary) hypertension Status: Acute (9) Glaucoma: Code(s): H40.9 - Unspecified glaucoma Status: Acute (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 Please see H&P for details. Hospital Course: The daughter stated that the patient had a negative chest x-ray 3 days ago but was started on Levaquin. The patient also negative for COVID.? The patient became more short of breath and confused prompting this admission.? At the senior living her O2 saturations were 90%.? Her white count was 11.2.? Her sodium is 131 but is up from 128 in May.? Her blood glucose is 262.? Lactic acid was 1.6. UA consistent with UTI. Influenza and COVID negative. CXR showing left lower lobe and lingular airspace disease. The patient was started on cefepime, azithromycin and nebulizer treatments. She did require supplemental oxygen but she was able to be weaned to room air during her hospital course. White count essentially remained normal. Hemoglobin A1c was 7.7. Glucose was elevated but she was receiving dextrose in her IV antibiotics. Calcium mildly elevated but probably related to her factor shows bedrest. Vancomycin was added to her regiment. Blood cultures were no growth to date. Urine culture growing Proteus mirabilis sensitive to cefepime. MRSA nasal swab was negative. She remained afebrile. She feels much improved. Still with cough. Suspected that glucose should improve when she switched to oral antibiotics. She overall did well was able be discharged back to the senior living on 08/14/2022. Status at Discharge Cognitive/behavioral status at discharge: Stable Time Spent with Patient Time attestation: Total time spent providing and/or coordinating discharge services: 34 minutes Time spent: Greater than 30 minutes Exam Narrative: AF 96.3 110/24 82 20 94% Gen - NARD sitting up feeding herself lunch Chest - left base inspiratory crackles CV - RRR S1/S2 Abd - Soft, NT/ND, Positive BS. SP site dressing damp and coming off. Ext - bilateral LE in heel protectors Psych - Nml mood and affect Skin - Warm and dry DS: Data Data Completed and Pending Labs on day of discharge: Labs from last 24 hours 08/14/22 08/14/22 08/14/22 11:00 07:42 05:56 WBC RBC Hgb Hct MCV MCH MCHC RDW Plt Count MPV Immature Gran % (Auto) Neut % (Auto) Lymph % (Auto) Sargent % (Auto) Eos % (Auto) Baso % (Auto) Lymph # (Auto) Sargent # (Auto) Eos # (Auto) Baso # (Auto) Abs Immat Gran (auto) Absolute Neuts (auto) Absolute Nucleated RBC Nucleated RBC % Sodium 131 L Potassium 4.3 Chloride 103 Carbon Dioxide 24 Anion Gap
[2022-08-14 14:33] LABS: EDCOVIDSCREEN Negative (Negative)
--- NOTE | 2022-08-21 06:56 | PC.NURSE ---
Blood cx are negative. Dr. Morgan moore.
== END 2022-08-14 15:20 | DRG 193 ==
LOC: ANHED 14:33 → ANH3MEDSUR 16:30
PROVIDERS: Emergency Medicine; Nurse Practitioner; Admitting Provider Student in an Organized Health Care Education/Training Program; Emergency Provider Preventive Medicine Aerospace Medicine; PCP Family Medicine; Visit Provider Internal Medicine
DX: J18.9 Pneumonia, unspecified organism (principal); L89.93 Pressure ulcer of unspecified site, stage 3; T83.510A Infection and inflammatory reaction due to cystostomy catheter, initial encounter; N39.0 Urinary tract infection, site not specified; G11.4 Hereditary spastic paraplegia; B96.4 Proteus (mirabilis) (morganii) as the cause of diseases classified elsewhere; Z20.822 Contact with and (suspected) exposure to COVID-19; E11.9 Type 2 diabetes mellitus without complications; K21.9 Gastro-esophageal reflux disease without esophagitis; E03.9 Hypothyroidism, unspecified; I11.0 Hypertensive heart disease with heart failure; I50.9 Heart failure, unspecified; H40.9 Unspecified glaucoma; R33.9 Retention of urine, unspecified; F03.90 Unspecified dementia, unspecified severity, without behavioral disturbance, psychotic disturbance, mood disturbance, and anxiety; G35 Multiple sclerosis; N31.9 Neuromuscular dysfunction of bladder, unspecified; I25.10 Atherosclerotic heart disease of native coronary artery without angina pectoris; I48.91 Unspecified atrial fibrillation; G47.33 Obstructive sleep apnea (adult) (pediatric); Z85.3 Personal history of malignant neoplasm of breast; Z86.73 Personal history of transient ischemic attack (TIA), and cerebral infarction without residual deficits; Z86.711 Personal history of pulmonary embolism; Z90.710 Acquired absence of both cervix and uterus
CPT/HCPCS: 36415; 71046; 80048; 80053; 80202; 81001; 82565; 82948; 83036; 83605; 83735; 84443; 85025; 87040; 87077; 87081; 87086; 87186; 87426; 87636; 93005; 94640; 96365; 96366; 96367; 96376; 99285; A9270; C9803; G0378; J0456; J0692; J1815; J3370

== ENCOUNTER 2022-10-27 18:33 | Inpatient (IN) | payer MEDICARE, MEDICAID, SELFPAY ==
[2022-10-27] VITALS (15 sets, daily range): BP systolic 135–159; BP diastolic 54–68; PULSE 80–89; RESP 17–25; TEMP 36.4; O2SAT 91–95
--- NOTE | ~2022-10-27 | XR_ITS ---
EXAMINATION: XR chest ET placement INDICATION: Endotracheal tube placement TECHNIQUE: Portable AP chest at 0210 hours COMPARISON: 08/11/2022 FINDINGS: The endotracheal tube ends approximately 6.6 cm above the marilee. The nasogastric tube is f ollowed as far as the stomach. Its tip is beyond the inferior margin of the radiograph. There is mild atelectasis of the left lung base. No pleural effusion or pneumothorax. The cardiomediastinal silhou ette is normal. There are surgical clips in the left breast. In addition, skin lynette are noted in t he upper abdomen. IMPRESSION: 1. Endotracheal tube approximately 6.6 cm above the marilee. 2. Mild left basilar atelectasis. Reviewed, dictated and finalized at location A.
--- NOTE | ~2022-10-27 | XR_ITS ---
EXAMINATION: XR chest 1V portable INDICATION: Respiratory failure TECHNIQUE: Portable AP chest at 0520 hours COMPARISON: 10/28/2022 FINDINGS: The endotracheal tube has been removed. The nasogastric tube is followed as far as the stom ach. Its tip is beyond the inferior margin of the radiograph. Airspace opacities in the left mid and lower lung zones have increased. A small left pleural effusion is suggested. No pneumothorax is ident ified. The cardiomediastinal silhouette is stable. There are surgical clips in the left breast. IMPRESSION: 1. Worsening airspace opacities of the left mid and lower lung zones, consistent with atelectasis phil sanjuanita pneumonia. Reviewed, dictated and finalized at location A. IMPRESSION: 1. Worsening airspace opacities of the left mid and lower lung zones, consisten t with atelectasis versus pneumonia.
--- NOTE | ~2022-10-27 | XR_ITS ---
XR abdomen NG/feed tube insert INDICATION: Evaluate NG tube position. TECHNIQUE: Limited KUB perform for evaluating NG tube . COMPARISON: 05/18/2022 FINDINGS: NG tube tip in the stomach. Visualized bowel gas pattern is unremarkable. IMPRESSION: 1: NG tube tip in the stomach. Reviewed, dictated and finalized at location []
--- NOTE | ~2022-10-27 | CT_ITS ---
EXAMINATION: CT abdomen pelvis w con DATE: 10/27/2022 20:31 INDICATION: Abdominal pain and distention TECHNIQUE: Computed tomography (CT) of the abdomen and pelvis was performed with 100 CC Omnipaque 350 intravenous contrast. Automated exposure control and iterative reconstruction technique were employe d. Exam dose: 761.95 mGy-cm total exam DLP. COMPARISON: 05/18/2022 CT abdomen pelvis FINDINGS: The lung bases are clear of consolidation. Cardiomegaly. Coronary artery calcifications. Aortic valve calcification. Prominent mitral valve calc ification. Postoperative change and some retraction of the left breast is noted. Status post cholecystectomy. This likely accounts for mild prominence of the intrahepatic bile ducts. No hepatic, splenic, pancreatic, and adrenal space-occupying mass lesion. No suspicious renal mass lesion or any urinary tract calculus or hydroureteronephrosis is evident. Th e urinary bladder is evacuated, with a suprapubic catheter in place. There is diffuse bladder wall th ickening. There is pericystic fat stranding suggesting possible cystitis. There is extensive aortic calcification. No abdominal aortic aneurysm is detected. There is prominent calcification at the origin the celiac and superior mesenteric arteries. Prominent calcification of the iliac arteries. No intraperitoneal or retroperitoneal or pelvic mass lesion or adenopathy or asci anais is noted. There is very prominent amount fecal material throughout the rectum and most of the colon, prominent gaseous distention with some fluid levels of the colon, particularly right colon. There is extensive pneumatosis of the right colon. No portal venous air is detected. There are multiple foci of intraper itoneal free air, suggesting hollow abdominal viscus rupture. Surgical consultation is recommended; b owel rupture secondary to ischemic colitis is favored.. There is a right inguinal hernia containing a short apparently nonobstructed bowel segment. Diffuse idiopathic skeletal hyperostosis of the thoracic spine. There is osteopenia. There is multilevel degenerative disc disease of the lumbar spine, particularly at L1-2 and L2-3 with mild retrolisthesis at each of these levels. Moderately prominent degenerative disc disease at L3-4 with mild retrolisthesis. Degenerative changes apophyseal joints with associated mild grade 1 anterolisthesis at L4-5. IMPRESSION: Multiple locules of intraperitoneal free air identified which may indicate hollow viscus rupture; colon rupture from ischemic bowel should be considered. Surgical consultation is recommend ed Extensive pneumatosis of the right colon, with gaseous distention and fluid levels; no evidence of po rtal venous gas Very prominent amount of fecal material throughout the rectum and much of the colon Right inguinal hernia containing a short segment of bowel, without apparent strangulation or obstruct ion Status post cholecystectomy; this likely accounts for mild prominence of the intrahepatic bile ducts Small sliding hiatal hernia Suprapubic bladder catheter, bladder wall thickening and pericholecystic fat stranding; consider cyst itis Reviewed, dictated and finalized at Location A. Reviewed, dictated and finalized at location A. IMPRESSION: Multiple locules of intraperitoneal free air identified which may indicate hollow viscus rupture; colon rupture from ischemic bowel should be con sidered. Surgical consultation is recommended Extensive pneumatosis of the right colon, with gaseous distention and fluid lev els; no evidence of portal venous gas Very prominent amount of fecal material throughout the rectum and much of the c olon Right inguinal hernia containing a short segment of bowel, without apparent str angulation or obstruction Status post chol
--- NOTE | 2022-10-27 19:11 | ECG_ITS ---
Measurements Intervals [place] Rate: 87 P: 41 AL: 159 QRS: -52 QRSD: 108 T: 35 QT: 352 QTc: 425 Interpretive Statements SINUS RHYTHM LEFT ANTERIOR FASCICULAR BLOCK [QRS AXIS <= -45, QR IN I, RS IN II] ABNORMAL ECG COMPARED TO ECG 08/11/2022 12:44:46 NO SIGNIFICANT CHANGES Electronically Signed On 10-28-2022 11:19:49 CDT by Noah Damico M.D.
--- NOTE | 2022-10-27 19:12 | ED.GENADULT ---
HPI - General Adult General Chief complaint: Abdominal Pain Stated complaint: abd pain Time Seen by Provider: 10/27/22 19:05 History of Present Illness HPI narrative: Patient 81-year-old female presents emergency department with chief complaint of abdominal pain. Patient reports last several days has been having discomfort throughout her abdomen reports her abdomen has become little bit more distended patient reports no prior surgical history of her abdomen and reports that the pain is worse with palpation and worse with movement. The patient reports he is unsure of her last bowel movement reports no discomfort with urination. Related Data Home Medications Medication Instructions Recorded Confirmed Saccharomyces boulardii 250 mg 250 mg PO BID 03/11/22 10/16/22 capsule (Florastor) anastrozole 1 mg tablet 1 mg PO DAILY 03/11/22 10/16/22 apixaban 5 mg tablet (Eliquis) 5 mg PO BID 03/11/22 10/16/22 bromfenac 0.07 % eye drops 1 drp RIGHT EYE QAM 03/11/22 10/16/22 (Prolensa) calcium polycarbophil 625 mg 1,250 mg PO TID 03/11/22 10/16/22 tablet (Fiber-Lax) cranberry extract 425 mg capsule 425 mg PO 1200 03/11/22 10/16/22 docusate sodium 100 mg capsule 100 mg PO EVERY OTHER DAY 03/11/22 10/16/22 dorzolamide 2 % eye drops 1 drp EACH EYE BID 03/11/22 10/16/22 esomeprazole magnesium 40 mg 40 mg PO DAILY 03/11/22 10/16/22 capsule,delayed release flecainide 50 mg tablet 50 mg PO BID 03/11/22 10/16/22 furosemide 40 mg tablet 40 mg PO QAM 03/11/22 10/16/22 insulin glargine 100 unit/mL (3 12 unit subcut HS 03/11/22 10/16/22 mL) subcutaneous pen (Lantus Solostar U-100 Insulin) levothyroxine 75 mcg tablet 75 mcg PO DAILY 03/11/22 10/16/22 linaclotide 290 mcg capsule 290 mcg PO QAM 03/11/22 10/16/22 (Linzess) metoclopramide HCl 10 mg tablet 10 mg PO TID 03/11/22 10/16/22 nitroglycerin 0.4 mg sublingual 0.4 mg sublingual PRN PRN Chest 03/11/22 10/16/22 tablet Pain polyethylene glycol 3350 17 17 g PO Q48H 03/11/22 10/16/22 gram/dose oral powder potassium chloride 10 mEq 20 meq PO QID 03/11/22 10/16/22 tablet,extended release (Klor-Con) rosuvastatin 10 mg tablet 10 mg PO HS 03/11/22 10/16/22 simethicone 125 mg chewable tablet 125 mg PO TID 03/11/22 10/16/22 sitagliptin phosphate 100 mg 100 mg PO DAILY 03/11/22 10/16/22 tablet (Januvia) spironolactone 25 mg tablet 25 mg PO QAM 03/11/22 10/16/22 miconazole nitrate 2 % topical 1 applic topical BID 05/30/22 10/16/22 cream collagenase clostridium histo. 250 1 applic topical DAILY 07/03/22 10/16/22 unit/gram topical ointment (Santyl) buspirone 5 mg tablet 5 mg PO TID 08/11/22 10/16/22 guaifenesin 600 mg tablet, 600 mg PO Q12H 08/11/22 10/16/22 extended release 12 hr (Mucinex) insulin glargine 100 unit/mL (3 12 unit subcut QAM 08/11/22 10/16/22 mL) subcutaneous pen (Lantus Solostar U-100 Insulin) ipratropium 0.5 mg-albuterol 3 mg 3 ml inhalation QID 08/11/22 10/16/22 (2.5 mg base)/3 mL nebulization soln lactulose 10 gram/15 mL oral 15 ml PO TID 08/11/22 10/16/22 solution levothyroxine 75 mcg tablet 150 mcg DAILY 08/11/22 10/16/22 loratadine 10 mg tablet 10 mg PO DAILY 08/11/22 10/16/22 Allergies Allergy/AdvReac Type Severity Reaction Status Date / Time black pepper Allergy Unknown Verified 10/27/22 18:47 diltiazem Allergy Unknown Verified 10/27/22 18:47 donepezil Allergy Unknown Verified 10/27/22 18:47 fluticasone Allergy Unknown Verified 10/27/22 18:47 metformin Allergy Unknown Verified 10/27/22 18:47 Review of Systems Review of Systems: A 10 system review of systems was completed on the patient and is negative except for what is stated in the HPI. Nursing and ancillary documentation was reviewed. FORMERLY [facility], [facility]1983 Past Medical History Medical History Atherosclerotic heart disease Atrial fibrillation Breast cancer Chronic idiopathic constipation Congestive heart failure Familial spastic p
[2022-10-27] MEDS: SODIUM CHLORIDE 0.9% IV 1,000 ML 999 ML IV CONT ×2 (19:29→22:11)
[2022-10-27] MEDS: ONDANSETRON INJ 4 MG/2 ML VIAL IV PUSH (19:29)
[2022-10-27] MEDS: MORPHINE SULFATE (*CRX) 4 MG/ML INJ 2 MG IV PUSH (19:30)
--- NOTE | 2022-10-27 19:30 | PC.NURSE ---
This RN assumed care of patient.
[2022-10-27 19:53] LABS: Basophils Absolute Auto 0.1 K/mm3 (0.0-0.1); Basophils Percent Auto 0.3 % (0.2-1.2); Eosinophils Absolute Auto 0.1 K/mm3 (0-0.3); Eosinophils Percent Auto 0.7 % (0-4.4); Hematocrit 39.8 % (37.0-47.0); Hemoglobin 12.5 g/dL (12.0-15.0); Immature Granulocyte Absolute 0.16 K/mm3 (0.00-0.031); Immature Granulocyte Percent A 0.8 % (0-0.5); Lymphocytes Absolute Auto 1.45 K/mm3 (0.9-3.2); Lymphocytes Percent Auto 6.9 % (18.3-44.2); Mean Corpuscular HGB Conc 31.4 g/dl (32-36); Mean Corpuscular Hemoglobin 23.6 pg (26-34); Mean Corpuscular Volume 75.1 fl (80-100); Mean Platelet Volume 10.4 fl (7.4-10.4); Monocytes Absolute Auto 3.2 K/mm3 (0.1-0.6); Monocytes Percent Auto 15.5 % (2.6-8.5); Neutrophils Absolute Auto 15.9 K/mm3 (1.3-6.7); Neutrophils Percent Auto 75.8 % (45.5-73.1); Platelet Count Result 313 k/mm3 (150-375); Red Cell Distribution Width 15.9 % (11.5-14.5); White Blood Count 20.9 K/mm3 (4.5-10.0)
[2022-10-27 19:58] LABS: Appearance Urine Cloudy (Clear); Bacteria Urine 1+ /hpf; Bilirubin Urine Negative (Negative); Blood Urine 1+ (Negative); Color Urine Yellow (Yellow); Glucose Urine UA 3+ mg/dL (Negative); Ketones Urine Negative (Negative); Leukocyte Esterase Ur 2+ LEU/UL (Negative); Nitrate Urine Positive (Negative); Protein Urine Negative (Negative); Specific Grav Ur 1.021 (1.001-1.035); Squamous Epithelial Cell Urine None seen /hpf (Few); Urobilinogen Urine 0.2 mg/dL (<2.0); WBC Urine >100 /hpf
[2022-10-27 20:03] LABS: Add Urine Microscopic? YES
[2022-10-27 20:04] LABS: Alanine Aminotransferase 24 U/L (6-35); Albumin Level 3.4 g/dL (3.5-5.1); Alkaline Phosphatase 112 U/L (38-126); Anion Gap 7 mmol/L (8-16); Aspartate Amino Transferase 19 U/L (14-36); Bilirubin,Total 0.2 mg/dL (0.2-1.3); Blood Urea Nitrogen 15 mg/dL (7-17); Calcium 9.6 mg/dL (8.4-10.2); Carbon Dioxide 23 mmol/L (22-30); Chloride 103 mmol/L (98-107); Estimated CRCL calculation 75 ml/min; Estimated Glomerular Filt Rate > 60; Glucose 330 mg/dL (65-110); Lipase 79 U/L (23-300); Potassium 4.2 mmol/L (3.4-5.0); Sodium 133 mmol/L (137-145)
[2022-10-27 20:05] LABS: Lactic Acid Reflex 2.2 mmol/L (0.7-2.0)
[2022-10-27] MEDS: PIPERACILLN/TAZ 3.375GM/NS50ML 3.375 GM/50 ML BAG IVPB (21:42)
--- NOTE | 2022-10-27 21:52 | PC.NURSE ---
Called [facility] and spoke with Bette, patients nurse at [facility] to inquire when patient last took her eliquis. Bette states patient had her last or most recent dose at 1645 today.
--- NOTE | 2022-10-27 21:59 | WPDANESEPP ---
Anes - Eval Pre Procedure Procedure: Exploratory laparotomy Date/Time: 10/27/22 21:59 Surgeon: Monalisa Preop Diagnosis: Ischemic colitis Pre Op Diagnosis: abd pain Patient Data Age: 81 Gender: F Height: 1.63 m Weight: 85 kg Last Vital Signs Temp 97.6 F 10/27/22 18:38 Pulse 85 10/27/22 20:09 Resp 18 10/27/22 20:09 BP 144/66 H 10/27/22 20:09 Pulse Ox 93 10/27/22 18:46 O2 Del Method Room Air 10/27/22 18:38 Allergies Allergy/AdvReac Type Severity Reaction Status Date / Time black pepper Allergy Unknown Verified 10/27/22 18:47 diltiazem Allergy Unknown Verified 10/27/22 18:47 donepezil Allergy Unknown Verified 10/27/22 18:47 fluticasone Allergy Unknown Verified 10/27/22 18:47 metformin Allergy Unknown Verified 10/27/22 18:47 Home Medications Medication Instructions Recorded Confirmed Type Saccharomyces boulardii 250 mg 250 mg PO BID 03/11/22 10/16/22 History capsule (Florastor) anastrozole 1 mg tablet 1 mg PO DAILY 03/11/22 10/16/22 History apixaban 5 mg tablet (Eliquis) 5 mg PO BID 03/11/22 10/16/22 History bromfenac 0.07 % eye drops 1 drp RIGHT EYE QAM 03/11/22 10/16/22 History (Prolensa) calcium polycarbophil 625 mg 1,250 mg PO TID 03/11/22 10/16/22 History tablet (Fiber-Lax) cranberry extract 425 mg capsule 425 mg PO 1200 03/11/22 10/16/22 History docusate sodium 100 mg capsule 100 mg PO EVERY OTHER DAY 03/11/22 10/16/22 History dorzolamide 2 % eye drops 1 drp EACH EYE BID 03/11/22 10/16/22 History esomeprazole magnesium 40 mg 40 mg PO DAILY 03/11/22 10/16/22 History capsule,delayed release flecainide 50 mg tablet 50 mg PO BID 03/11/22 10/16/22 History furosemide 40 mg tablet 40 mg PO QAM 03/11/22 10/16/22 History insulin glargine 100 unit/mL (3 12 unit subcut HS 03/11/22 10/16/22 History mL) subcutaneous pen (Lantus Solostar U-100 Insulin) levothyroxine 75 mcg tablet 75 mcg PO DAILY 03/11/22 10/16/22 History linaclotide 290 mcg capsule 290 mcg PO QAM 03/11/22 10/16/22 History (Linzess) metoclopramide HCl 10 mg tablet 10 mg PO TID 03/11/22 10/16/22 History nitroglycerin 0.4 mg sublingual 0.4 mg sublingual PRN PRN Chest 03/11/22 10/16/22 History tablet Pain polyethylene glycol 3350 17 17 g PO Q48H 03/11/22 10/16/22 History gram/dose oral powder potassium chloride 10 mEq 20 meq PO QID 03/11/22 10/16/22 History tablet,extended release (Klor-Con) rosuvastatin 10 mg tablet 10 mg PO HS 03/11/22 10/16/22 History simethicone 125 mg chewable tablet 125 mg PO TID 03/11/22 10/16/22 History sitagliptin phosphate 100 mg 100 mg PO DAILY 03/11/22 10/16/22 History tablet (Januvia) spironolactone 25 mg tablet 25 mg PO QAM 03/11/22 10/16/22 History miconazole nitrate 2 % topical 1 applic topical BID 05/30/22 10/16/22 History cream collagenase clostridium histo. 250 1 applic topical DAILY 07/03/22 10/16/22 History unit/gram topical ointment (Santyl) buspirone 5 mg tablet 5 mg PO TID 08/11/22 10/16/22 History guaifenesin 600 mg tablet, 600 mg PO Q12H 08/11/22 10/16/22 History extended release 12 hr (Mucinex) insulin glargine 100 unit/mL (3 12 unit subcut QAM 08/11/22 10/16/22 History mL) subcutaneous pen (Lantus Solostar U-100 Insulin) ipratropium 0.5 mg-albuterol 3 mg 3 ml inhalation QID 08/11/22 10/16/22 History (2.5 mg base)/3 mL nebulization soln lactulose 10 gram/15 mL oral 15 ml PO TID 08/11/22 10/16/22 History solution levothyroxine 75 mcg tablet 150 mcg DAILY 08/11/22 10/16/22 History loratadine 10 mg tablet 10 mg PO DAILY 08/11/22 10/16/22 History cefdinir 300 mg capsule 300 mg PO Q12H #8 caps 08/14/22 10/16/22 Rx doxycycline hyclate 100 mg capsule 100 mg PO BID #3 caps 08/14/22 10/16/22 Rx Laboratory Tests 10/27/22 19:43 WBC 20.9 H K/mm3 (4.5-10.0) RBC 5.30 M/mm3 (4.2-5.4) Hgb 12.5 g/dL (12.0-15.0) Hct 39.8 % (37.0-47.0) MCV 75.1 L fl (80-100) MCH 23.6 L pg (26-34) MCHC 31.4 L
[2022-10-27 22:47] LABS: Reflex Lactic Acid Yes or No Add Lactic
--- NOTE | 2022-10-27 22:49 | PC.NURSE ---
Surgeon obtained consent from pt and pt family member. He explained risks of not having procedure and possible plan of care following the procedure.
--- NOTE | 2022-10-27 22:54 | WPDHPUPDATE1 ---
History and Physical Update Update Date/Time: 10/27/22 22:54 History and Physical has been reviewed, including an updated exam of the patient. There are NO changes in the patient's condition. Risks, benefits, and alternatives have been discussed and questions answered. Patient agrees to proceed with procedure.
--- NOTE | 2022-10-27 22:55 | PM.IMHP ---
H&P: HPI History of Present Illness Date/Time: 10/27/22 22:55 Chief Complaint: Abdominal pain Narrative: This is an 81-year-old woman who presented to the emergency department tonight with abdominal pain. She states that she was doing well earlier today and bowels were moving. She is a resident of [facility] and was visited by her daughter earlier during the day and she was feeling fine. This evening she began having diffuse abdominal pain. Pain was slightly worse on the right side. She has never experienced anything like this in the past. She does have a history of chronic constipation and has to take multiple medications to help with bowel movements. She also has a degenerative neurologic disease which causes paraplegia. She has had chronic bladder outlet obstruction and had a chronic indwelling Schmitt. This was recently changed to a suprapubic catheter. She denies any blood in her stools. She has had a colonoscopy but thinks it has been many years ago. Review of Systems Review of Systems: All systems reviewed & are unremarkable except as noted in HPI and below Constitutional: Constitutional: Denies chills and Denies fever(s) Eyes: Eyes: Denies change in vision ENT: Denies hearing loss, Denies neck pain and Denies sore throat Cardiovascular: Cardiovascular: Denies chest pain and Denies dyspnea Respiratory: Respiratory: Denies cough, Denies dyspnea and Denies wheezing Gastrointestinal: Gastrointestinal: Reports as per HPI Genitourinary: Genitourinary: Denies hematuria and Denies dysuria Musculoskeletal: Musculoskeletal: Denies arthralgias, Denies joint swelling and Denies neck pain Allergic/Immunologic: Allergic/Immunologic: Denies wheezing PENDING SALE TO [facility] Past Medical History Medical History (Updated 10/27/22 @ 23:02 by Rico Sheldon DO) Atherosclerotic heart disease Atrial fibrillation Breast cancer Chronic idiopathic constipation Congestive heart failure Familial spastic paraplegia GERD (gastroesophageal reflux disease) Glaucoma Hereditary spastic paraplegia History of pulmonary embolism Hyperparathyroidism Hypertension Hypothyroidism Multiple sclerosis Neurogenic bladder CATY (obstructive sleep apnea) uncompliant with CPAP TIA (transient ischemic attack) Type 2 diabetes mellitus Surgical History Surgical History (Updated 10/27/22 @ 22:59 by Rico Sheldon DO) Chronic suprapubic catheter H/O: hysterectomy Family History Family History Father Spastic paralysis Mother Breast cancer Social History Social History Social History: Resides at [facility]. She has 3 daughters. 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 Code status full code Smoking status: Never smoker Second hand tobacco smoke exposure: No Alcohol intake: never Substance use: never Substance use type: does not use Living arrangements: skilled nursing Additional living arrangements comments: [facility] Spiritual care concerns: No Meds Home Medications and Allergies Home Medications Medication Instructions Recorded Confirmed Type Saccharomyces boulardii 250 mg 250 mg PO BID 03/11/22 10/16/22 History capsule (Florastor) anastrozole 1 mg tablet 1 mg PO DAILY 03/11/22 10/16/22 History apixaban 5 mg tablet (Eliquis) 5 mg PO BID 03/11/22 10/16/22 History bromfenac 0.07 % eye drops 1 drp RIGHT EYE QAM 03/11/22 10/16/22 History (Prolensa) calcium polycarbophil 625 mg 1,250 mg PO TID 03/11/22 10/16/22 History tablet (Fiber-Lax) cranberry extract 425 mg capsule 425 mg PO 1200 03/11/22 10/16/22 History docusate sodium 100 mg capsule 100 mg PO EVERY OTHER DAY 03/11/22 10/16/22 History dorzolamide 2 % eye drops 1 drp EACH EYE BID 03/11/22 10/16/22 History esomeprazole magnesium 40 mg 40 mg PO DAILY 03/11/22 10/16/22 History capsule,delayed release flecainid
--- NOTE | 2022-10-27 23:09 | WPDANESEPPF ---
Anes - Initial Pre Proc Eval Procedure: Operation Date: 10/27/22 23:00 Proposed Procedures p Exploratory Laparotomy, Possible Bowel Resection, Possible Ostomy - Rico Sheldon DO Date/Time: 10/27/22 23:09 Surgeon: Rico Sheldon DO Pre Op Diagnosis: abd pain Patient Data Age: 81 Gender: F Height: 1.63 m Weight: 85 kg Last Vital Signs Temp 36.4 C 10/27/22 18:38 Pulse 80 10/27/22 22:54 Resp 17 10/27/22 22:54 BP 159/68 H 10/27/22 22:54 Pulse Ox 93 10/27/22 22:54 O2 Del Method Room Air 10/27/22 18:38 Allergies Allergy/AdvReac Type Severity Reaction Status Date / Time black pepper Allergy Unknown Verified 10/27/22 18:47 diltiazem Allergy Unknown Verified 10/27/22 18:47 donepezil Allergy Unknown Verified 10/27/22 18:47 fluticasone Allergy Unknown Verified 10/27/22 18:47 metformin Allergy Unknown Verified 10/27/22 18:47 Home Medications Medication Instructions Recorded Confirmed Type Saccharomyces boulardii 250 mg 250 mg PO BID 03/11/22 10/16/22 History capsule (Florastor) anastrozole 1 mg tablet 1 mg PO DAILY 03/11/22 10/16/22 History apixaban 5 mg tablet (Eliquis) 5 mg PO BID 03/11/22 10/16/22 History bromfenac 0.07 % eye drops 1 drp RIGHT EYE QAM 03/11/22 10/16/22 History (Prolensa) calcium polycarbophil 625 mg 1,250 mg PO TID 03/11/22 10/16/22 History tablet (Fiber-Lax) cranberry extract 425 mg capsule 425 mg PO 1200 03/11/22 10/16/22 History docusate sodium 100 mg capsule 100 mg PO EVERY OTHER DAY 03/11/22 10/16/22 History dorzolamide 2 % eye drops 1 drp EACH EYE BID 03/11/22 10/16/22 History esomeprazole magnesium 40 mg 40 mg PO DAILY 03/11/22 10/16/22 History capsule,delayed release flecainide 50 mg tablet 50 mg PO BID 03/11/22 10/16/22 History furosemide 40 mg tablet 40 mg PO QAM 03/11/22 10/16/22 History insulin glargine 100 unit/mL (3 12 unit subcut HS 03/11/22 10/16/22 History mL) subcutaneous pen (Lantus Solostar U-100 Insulin) levothyroxine 75 mcg tablet 75 mcg PO DAILY 03/11/22 10/16/22 History linaclotide 290 mcg capsule 290 mcg PO QAM 03/11/22 10/16/22 History (Linzess) metoclopramide HCl 10 mg tablet 10 mg PO TID 03/11/22 10/16/22 History nitroglycerin 0.4 mg sublingual 0.4 mg sublingual PRN PRN Chest 03/11/22 10/16/22 History tablet Pain polyethylene glycol 3350 17 17 g PO Q48H 03/11/22 10/16/22 History gram/dose oral powder potassium chloride 10 mEq 20 meq PO QID 03/11/22 10/16/22 History tablet,extended release (Klor-Con) rosuvastatin 10 mg tablet 10 mg PO HS 03/11/22 10/16/22 History simethicone 125 mg chewable tablet 125 mg PO TID 03/11/22 10/16/22 History sitagliptin phosphate 100 mg 100 mg PO DAILY 03/11/22 10/16/22 History tablet (Januvia) spironolactone 25 mg tablet 25 mg PO QAM 03/11/22 10/16/22 History miconazole nitrate 2 % topical 1 applic topical BID 05/30/22 10/16/22 History cream collagenase clostridium histo. 250 1 applic topical DAILY 07/03/22 10/16/22 History unit/gram topical ointment (Santyl) buspirone 5 mg tablet 5 mg PO TID 08/11/22 10/16/22 History guaifenesin 600 mg tablet, 600 mg PO Q12H 08/11/22 10/16/22 History extended release 12 hr (Mucinex) insulin glargine 100 unit/mL (3 12 unit subcut QAM 08/11/22 10/16/22 History mL) subcutaneous pen (Lantus Solostar U-100 Insulin) ipratropium 0.5 mg-albuterol 3 mg 3 ml inhalation QID 08/11/22 10/16/22 History (2.5 mg base)/3 mL nebulization soln lactulose 10 gram/15 mL oral 15 ml PO TID 08/11/22 10/16/22 History solution levothyroxine 75 mcg tablet 150 mcg DAILY 08/11/22 10/16/22 History loratadine 10 mg tablet 10 mg PO DAILY 08/11/22 10/16/22 History cefdinir 300 mg capsule 300 mg PO Q12H #8 caps 08/14/22 10/16/22 Rx doxycycline hyclate 100 mg capsule 100 mg PO BID #3 caps 08/14/22 10/16/22 Rx Laboratory Tests 10/27/22 19:43 WBC 20.9 H K/mm3 (4.5-10.0) RBC 5.30 M/mm3 (4.2-5.4) Hgb 12.5 g/dL (1
--- NOTE | 2022-10-27 23:37 | SUR.OPER ---
Blood Consent Obtained via telephone from DaughterDarell Cassidy with 2 nurses to witness
[2022-10-28] VITALS (23 sets, daily range): BP systolic 119–212; BP diastolic 49–92; PULSE 60–89; RESP 8–21; TEMP 36.5–37.4; O2SAT 96–100; BMI 29.1
--- NOTE | 2022-10-28 01:20 | PM.OP ---
Procedure Note - Brief Procedure Note - Brief Date of procedure: 10/28/22 Abdominal pain, bowel pneumatosis Post-op diagnosis: Other (Ischemic colitis) Procedure performed: Total abdominal colectomy with end ileostomy Surgeon: Rico Sheldon DO Anesthesia: ARIANNA Findings: Exploratory laparotomy was performed. The ascending and proximal transverse colon appeared to have signs of ischemia with pneumatosis along the surface. The remainder of the colon appeared massively dilated all the way down to the rectum. There was no clear evidence of perforation and there did not appear to be any sign spillage of bowel contents. Due to the massive dilation of the entire colon, decision was made to proceed with total abdominal colectomy with end ileostomy. The entire small bowel appeared healthy and viable and was decompressed. NG tube was confirmed within the body of the stomach during the procedure. Estimated blood loss (mL): 50 Pathology: Yes (Subtotal colectomy) Complications: No immediate complications Condition: Critical Disposition: ICU
--- NOTE | 2022-10-28 01:30 | SUR.OPER ---
Midline incision dressed with telfa, fluffs, medipore tape Ileostomy dressed with ostomy bag placed by surgeon Preexisting suprapubic catheter dressed with drain sponge and medipore tape and secured with statlock securing device. Report given to HEAD ORTHOPEDIC TEAM PHYSICIAN Vida @ 1252 during closing Notified ICU @ 0103 of patient in transit to unit Further bedside report given by CLINICAL ACCOUNT EXECUTIVE to accepting RN upon arrival to unit. Specimen handed off fresh (due to size of specimen and container) to lab personnel. Lab stated no formalin necessary anyway upon arrival due to time of collection
[2022-10-28] MEDS: HYDROmorphone HCL INJ (*CRX) 1 MG/ML SYR IV PUSH ×2 (01:39→16:59)
--- NOTE | 2022-10-28 01:47 | ADMGEN ---
This patient, Perla Leon, was admitted to Intensive Care Unit-1 on 10/28/22 at 0115. Patient/family oriented to hospital policies and general routines including ID bracelet, bed and alarms, visiting hours, pain management, procedures, bathroom and other care routines, personal items, smoking policy, room service/diet, and visiting hours. Information on how to activate the Rapid Response Team has been discussed. Patient/Family are encouraged to report perceived risks to care and to ask questions if they do not understand what they are told or what they should do.
[2022-10-28 01:53] LABS: Lactic Acid 2.1 mmol/L (0.7-2.0)
[2022-10-28] MEDS: PROPOFOL IV EMULSION 100 ML 2.55 MG IV CONT (01:55)
[2022-10-28 02:09] LABS: Glucose Point of Care 256 mg/dl (65-105)
[2022-10-28] MEDS: INSULIN ASPART (*BKC) 100 UNITS/ML SUB-Q ×4 (02:11→12:22)
[2022-10-28] MEDS: LACTATED RINGERS 1,000 ML 125 ML IV CONT ×3 (02:11→20:55)
[2022-10-28] MEDS: PIPERACILLN/TAZ 3.375GM/NS50ML 3.375 GM/50 ML BAG IVPB (02:20)
[2022-10-28 02:59] LABS: Alveolar/Arterial O2 Gradient 177.3 mmHg; Base Excess ABG -5.8 mEq/l (+/-2.0); Carboxyhemoglobin 0.8 % THb (0-2.0); Device VENTILATOR; Fractional Inspired Oxygen 50 %; HCO3 ABG 19.2 mEq/l (22.0-26.0); Methemoglobin ABG 0.3 %THb (0-1.5); Modified Allen's Test Pass; Oxygen Content ABG 19.3 %vol (16.0-22.0); Oxygen Saturation ABG 98.6 % (95.0-100.0); Oxyhemoglobin 96.9 % THb (90.0-100.0); PCO2 ABG 36.4 mmHg (35.0-45.0); PO2 ABG 138.3 mmHg (80.0-100.0); PO2 FiO2 Ratio Arterial Blood 2.77 %; Site Drawn RIGHT RADIAL; pH ABG 7.341 (7.350-7.450)
[2022-10-28 03:00] LABS: Arterial Blood Gas PEEP 5 cmH2O; Arterial Blood Gas Tidal Volume 380 ml; Arterial Blood Gas Vent Mode CMV; Arterial Blood Gas Ventilator rate 16 /MIN
[2022-10-28 04:37] LABS: Triglycerides 124 mg/dL (<150)
[2022-10-28 05:39] LABS: Alveolar/Arterial O2 Gradient 185.1 mmHg; Arterial Blood Gas Ventilator rate 16 /MIN; Base Excess ABG -4.1 mEq/l (+/-2.0); Carboxyhemoglobin 0.7 % THb (0-2.0); Device VENTILATOR; Fractional Inspired Oxygen 50 %; Methemoglobin ABG 0.4 %THb (0-1.5); Modified Allen's Test Pass; Oxygen Content ABG 18.6 %vol (16.0-22.0); Oxygen Saturation ABG 98.7 % (95.0-100.0); PO2 ABG 133.2 mmHg (80.0-100.0); PO2 FiO2 Ratio Arterial Blood 2.66 %; Reduced Hemoglobin 1.9 %THb (0-5.0); Site Drawn RIGHT RADIAL; Total Hemoglobin 13.5 g/dL (12.0-18.0); pH ABG 7.388 (7.350-7.450)
[2022-10-28 05:40] LABS: Arterial Blood Gas PEEP 5 cmH2O; Arterial Blood Gas Tidal Volume 380 ml; Arterial Blood Gas Vent Mode CMV
[2022-10-28 06:35] LABS: Hemoglobin 12.4 g/dL (12.0-15.0); Mean Corpuscular HGB Conc 30.2 g/dl (32-36); Mean Corpuscular Hemoglobin 23.5 pg (26-34); Mean Corpuscular Volume 77.7 fl (80-100); Mean Platelet Volume 11.3 fl (7.4-10.4); Platelet Count Result 307 k/mm3 (150-375); Red Blood Count 5.28 M/mm3 (4.2-5.4); Red Cell Distribution Width 15.9 % (11.5-14.5); White Blood Count 27.6 K/mm3 (4.5-10.0)
[2022-10-28 06:38] LABS: Glucose Point of Care 278 mg/dl (65-105)
[2022-10-28 06:48] LABS: Anion Gap 5 mmol/L (8-16); Blood Urea Nitrogen 11 mg/dL (7-17); Calcium 9.4 mg/dL (8.4-10.2); Carbon Dioxide 22 mmol/L (22-30); Chloride 106 mmol/L (98-107); Estimated CRCL calculation 71 ml/min; Estimated Glomerular Filt Rate > 60; Glucose 281 mg/dL (65-110); Sodium 133 mmol/L (137-145)
[2022-10-28 06:51] LABS: Lactic Acid Reflex 2.7 mmol/L (0.7-2.0)
[2022-10-28] MEDS: SODIUM CHLORIDE 0.9% IV 1,000 ML 999 ML IV CONT (08:34)
[2022-10-28 09:15] LABS: Alveolar/Arterial O2 Gradient 81.5 mmHg; Base Excess ABG -4.8 mEq/l (+/-2.0); Fractional Inspired Oxygen 30 %; HCO3 ABG 20.7 mEq/l (22.0-26.0); Oxyhemoglobin 94.6 % THb (90.0-100.0); PCO2 ABG 39.7 mmHg (35.0-45.0); PO2 ABG 85.8 mmHg (80.0-100.0); PO2 FiO2 Ratio Arterial Blood 2.86 %; Total Hemoglobin 13.5 g/dL (12.0-18.0); pH ABG 7.334 (7.350-7.450)
--- NOTE | 2022-10-28 09:15 | WPDCNINT ---
Assessment and Plan Assessment and plan (1) Acute respiratory failure: Code(s): J96.00 - Acute respiratory failure, unspecified whether with hypoxia or hypercapnia Status: Acute Assessment and Plan: Acute Respiratory failure secondary to general anesthesia an acute ischemic colitis Patient currently on CMV ABG and PCXR reviewed 5/5 PSV SBT done for more than 1 hour. RSBI, ABGI and Vitals acceptable. Pt awake and following commands. Will extubate and monitor. NPO for now. (2) Sepsis: Code(s): A41.9 - Sepsis, unspecified organism Status: Inactive Assessment and Plan: Secondary to ischemic colitis and UTI Will give additional 1 L saline bolus. Can you LR Hemodynamically acceptable and patient has not required any vasopressor Currently on zosyn but will change to meropenem as patient has history of resistant bacteria in her urine Urine culture has been done and blood cultures are ordered (3) Acute ischemic colitis: Code(s): K55.039 - Acute (reversible) ischemia of large intestine, extent unspecified Status: Acute Assessment and Plan: Status post total colectomy and end ileostomy Management per General surgery Management of sepsis and respiratory failure as above (4) GERD (gastroesophageal reflux disease): Code(s): K21.9 - Gastro-esophageal reflux disease without esophagitis Status: Acute Assessment and Plan: PPI (5) Hypothyroidism: Code(s): E03.9 - Hypothyroidism, unspecified Status: Acute Assessment and Plan: Check TSH continue levothyroxine (6) Type 2 diabetes mellitus: Code(s): E11.9 - Type 2 diabetes mellitus without complications Status: Acute Assessment and Plan: Sliding scale and (7) Atrial fibrillation: Code(s): I48.91 - Unspecified atrial fibrillation Status: Acute Assessment and Plan: History of atrial fibrillation but currently in sinus rhythm Continue home medication of flecainide Anticoagulation is on hold and will be resumed by general surgery since patient is postop Plan DVT prophylaxis -currently on SCDs. Resume anticoagulation as per surgery Stress ulcer prophylaxis -PPI Nutrition -NPO at this time Code Status - Full Code I spoke to patient's daughter at bedside and updated her with patient's status, current treatment plan. Also discussed goals of care and code status. 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 Patient's wants her to stay full code although they will revisit this issue with him again. Case discussed with Dr. Sheldon from General surgery Total Critical Care Time - 40 minutes Due to a high probability of clinically significant, life threatening deterioration, the patient required my highest level of preparedness to intervene emergently and I personally spent this critical care time directly and personally managing the patient. This critical care time included obtaining a history; examining the patient; pulse oximetry; ordering and review of studies; arranging urgent treatment with development of a management plan; evaluation of patient's response to treatment; frequent reassessment; and discussions with other providers. It was exclusive of separately billable procedures and treating other patients and teaching time. Please see Assessment and Plan section and the rest of the note for further information on patient assessment and treatment Gas Maker Consult Note Consult date: 10/28/22 Reason for consult: Acute respiratory failure HPI: Perla Leon is a 81 year old female who is a care home resident and has suprapubic catheter history of colon history of chronic constipation and paraplegia presented last night to ER with chief complaint of abdominal pain. Patient was tender on
[2022-10-28 09:16] LABS: Device VENTILATOR; Site Drawn RIGHT BRACHIAL
[2022-10-28 09:17] LABS: Arterial Blood Gas PEEP 5 cmH2O; Arterial Blood Gas Pressure Support 5 cmH2O; Arterial Blood Gas Vent Mode SPONTANEOUS
[2022-10-28 09:36] LABS: Glucose Point of Care 236 mg/dl (65-105)
[2022-10-28] MEDS: ENOXAPARIN 40 MG/0.4 ML SYRINGE SUB-Q (09:49)
[2022-10-28] MEDS: PANTOPRAZOLE SODIUM IV 40 MG VIAL IV PUSH (09:50)
[2022-10-28] MEDS: MEROPENEM 1 GM in SODIUM CHLORIDE 0.9% IV 100 ML 240 ML IVPB ×2 (09:50→17:08)
[2022-10-28] MEDS: MINERAL OIL/WHITE PETROLATUM OINTMENT 1 APPLIC EACH EYE (09:50)
[2022-10-28 11:14] LABS: Thyroid Stimulating Hormone Reflex 0.808 uIU/mL (0.465-4.68)
[2022-10-28 12:26] LABS: Glucose Point of Care 225 mg/dl (65-105)
[2022-10-28] MEDS: MUPIROCIN 2% OINT 22 GM TUBE 1 APPLIC TOPICAL (15:57)
[2022-10-28 17:04] LABS: Glucose Point of Care 178 mg/dl (65-105)
--- NOTE | 2022-10-28 17:10 | W.PM.PROC2 ---
Procedure Note - Detailed Date of Procedure 10/27/22 Pre-op Diagnosis Diffuse abdominal pain, pneumatosis of the ascending colon, perforated viscus Post-op Diagnosis Other (Ischemic colitis) Procedure Performed Subtotal colectomy with end ileostomy Surgeon Rico Sheldon, DO Anesthesia General Indications This is an 81-year-old woman who presented to the emergency department with abdominal pain that started earlier in the evening. Earlier that day she had been feeling well. Her bowels had moved that day. She is a resident of a [facility] and has spastic paraplegia. She has a history of chronic constipation and obstipation and requires multiple stimulants and stool softeners. A CT of her abdomen and pelvis was performed in the emergency department and this showed evidence of pneumatosis of the ascending and proximal transverse colon. There was also evidence of free air suggesting a perforated bowel. She had an elevated white blood count and a slightly elevated lactic acid level. She was otherwise hemodynamically stable in the emergency department. She was started on broad-spectrum IV antibiotics. Discussions were made with the patient about treatment options and decision was made to proceed with emergency exploratory laparotomy with possible bowel resection and possible ostomy. Findings Exploratory laparotomy was performed. Upon entering the abdomen, there appeared to be massively dilated colon but no gross spillage of bowel contents. The ascending and transverse colon did appear to have signs of pneumatosis along the surface of the colon. There did not appear to be any clear evidence of necrosis or gangrene. The entire colon including the transverse colon descending colon and sigmoid colon appeared massively dilated. No rectal mass was palpable. Due to how dilated the colon was, this did not appear to be appropriate for partial resection and anastomosis. Decision was made to proceed with subtotal colectomy with end ileostomy. The entire colon was removed all the way down to the upper rectum. An end ileostomy was then performed in the right upper quadrant. Description of Procedure Procedure as well as risks, benefits, and alternatives were discussed with the patient. Written consent was obtained and placed in chart prior to procedure. Patient was brought back to surgical suite. She was placed supine on operating table. Time-out was done to confirm patient and procedure. She was then intubated by the anesthesia department. Her abdomen was then prepped and draped in sterile fashion using chlorhexidine prep. A 30 cm vertical midline incision was made using a 10 blade scalpel. Electrocautery was used for hemostasis and for dissection through the subcutaneous tissue. The linea alba was identified and incised using electrocautery. Two Jay clamps were used to lift the fascia it anteriorly and the peritoneum was then entered using electrocautery. The fascial incision was then extended throughout the length of the skin incision. I then placed an Ike wound protector and carefully examined the entire abdomen. The massively dilated colon appeared to start at the ascending colon and extend around the entire length of the colon. The decision was made to proceed with subtotal colectomy. The lateral peritoneal attachments to the cecum and ascending colon were taken down using electrocautery. The hepatic flexure was then also taken down using LigaSure bipolar cautery. I then created a window in the terminal ileum about 5 cm proximal to the ileocecal valve. A ZACK 75 mm blue load stapler was then advanced across the terminal ileum at this point and it was clamped and fired. The mesentery and mesocolon attachments were then carefully taken down using LigaSure bipolar cautery. I took care to stay close to the colon to prevent injury to any other deeper structures. This was then continued along the transverse colon as I carefully took down the meso
--- NOTE | 2022-10-28 17:39 | PM.PNGS ---
Progress Note: A&P Assessment and Plan (1) Acute ischemic colitis: Code(s): K55.039 - Acute (reversible) ischemia of large intestine, extent unspecified Status: Acute Assessment and Plan: Improving since extubation this AM. Continue NG decompression today Hold full anticoagulation until at least tomorrow, will keep on Lovenox 40mg daily for prophylaxis today. Consult Ostomy nurse for assistance with ostomy care. 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 No significant issues since extubation. Pain controlled. Afebrile. Exam GI: Inspection: non-distended, incision (dressing dry) and other (ileostomy pink and functioning with stool in bag) GI Palp: Yes Soft to palpation and Yes Tenderness to palpation present (GI) (incisional) Objective Data Vital Signs Vital Signs: Vital Signs - 24 hr 10/27/22 18:38 10/27/22 18:46 10/27/22 18:44 Temperature 36.4 C Pulse Rate 89 85 87 Respiratory Rate 20 18 25 H Blood Pressure 140/66 135/60 140/66 Pulse Oximetry 95 95 94 Oxygen Delivery Room Air Oxygen Flow Rate Fraction of Inspired Oxygen 10/27/22 18:46 10/27/22 19:31 10/27/22 20:09 Temperature Pulse Rate 86 87 85 Respiratory Rate 25 H 22 H 18 Blood Pressure 135/60 142/57 H 144/66 H Pulse Oximetry 93 Oxygen Delivery Oxygen Flow Rate Fraction of Inspired Oxygen 10/27/22 22:10 10/27/22 20:10 10/27/22 20:34 Temperature Pulse Rate 84 85 86 Respiratory Rate 17 21 H Blood Pressure 145/54 H Pulse Oximetry 94 91 Oxygen Delivery Oxygen Flow Rate Fraction of Inspired Oxygen 10/27/22 20:57 10/27/22 21:00 10/27/22 21:17 Temperature Pulse Rate 85 87 84 Respiratory Rate 17 24 H 22 H Blood Pressure Pulse Oximetry 92 93 92 Oxygen Delivery Oxygen Flow Rate Fraction of Inspired Oxygen 10/27/22 21:46 10/27/22 22:00 10/27/22 22:01 Temperature Pulse Rate 84 86 86 Respiratory Rate 20 22 H 17 Blood Pressure 145/54 H Pulse Oximetry 93 93 Oxygen Delivery Oxygen Flow Rate Fraction of Inspired Oxygen 10/27/22 22:54 10/28/22 01:55 10/28/22 01:29 Temperature 36.7 C Pulse Rate 80 81 81 Respiratory Rate 17 19 21 H Blood Pressure 159/68 H 212/92 H Pulse Oximetry 93 99 Oxygen Delivery Oxygen Flow Rate Fraction of Inspired Oxygen 10/28/22 01:44 10/28/22 02:14 10/28/22 02:00 Temperature Pulse Rate 75 80 73 Respiratory Rate 8 L 16 16 Blood Pressure 166/66 H 174/63 H 185/67 H Pulse Oximetry 98 99 99 Oxygen Delivery Oxygen Flow Rate Fraction of Inspired Oxygen 10/28/22 02:00 10/28/22 01:15 10/28/22 05:10 Temperature Pulse Rate 79 60 Respiratory Rate Blood Pressure Pulse Oximetry 100 Oxygen Delivery Mechanical Ventilation Mechanical Ventilation Oxygen Flow Rate Fraction of Inspired Oxygen 50 50 10/28/22 02:00 10/28/22 02:05 10/28/22 02:15 Temperature Pulse Rate 79 70 72 Respiratory Rate 16 16 16 Blood Pressure Pulse Oximetry Oxygen Delivery Oxygen Flow Rate Fraction of Inspired Oxygen 10/28/22 06:40 10/28/22 04:00 10/28/22 04:00 Temperature Pulse Rate 62 Respiratory Rate Blood Pressure Pulse Oximetry Oxygen Delivery Mechanical Ventilation Oxygen Flow Rate Fraction of Inspired Oxygen 50 10/28/22 06:00 10/28/22 03:14 10/28/22 04:00 Temperature 36.5 C Pulse Rate 64 69 63 Respiratory Rate 16 16 Blood Pressure 119/54 L 119/54 L Pulse Oximetry 100 100 Oxygen Delivery Oxygen Flow Rate Fraction of Inspired Oxygen
[2022-10-28] MEDS: FLECAINIDE ACETATE 50 MG TABLET FEED TUBE (20:55)
[2022-10-28 21:11] LABS: Glucose Point of Care 164 mg/dl (65-105)
[2022-10-29] VITALS (16 sets, daily range): BP systolic 102–171; BP diastolic 40–66; PULSE 69–84; RESP 12–18; TEMP 36.2–37.7; O2SAT 91–98
[2022-10-29] MEDS: MEROPENEM 1 GM in SODIUM CHLORIDE 0.9% IV 100 ML 240 ML IVPB ×3 (00:05→16:41)
[2022-10-29] MEDS: HYDROmorphone HCL INJ (*CRX) 1 MG/ML SYR 0.5 MG IV PUSH ×2 (00:05→16:42)
[2022-10-29 00:23] LABS: Glucose Point of Care 188 mg/dl (65-105)
[2022-10-29] MEDS: HYDROmorphone HCL INJ (*CRX) 1 MG/ML SYR IV PUSH (03:41)
[2022-10-29 04:21] LABS: Basophils Absolute Auto 0.1 K/mm3 (0.0-0.1); Basophils Percent Auto 0.3 % (0.2-1.2); Eosinophils Absolute Auto 0.1 K/mm3 (0-0.3); Eosinophils Percent Auto 0.3 % (0-4.4); Hematocrit 33.3 % (37.0-47.0); Hemoglobin 10.3 g/dL (12.0-15.0); Immature Granulocyte Absolute 0.17 K/mm3 (0.00-0.031); Immature Granulocyte Percent A 0.9 % (0-0.5); Lymphocytes Absolute Auto 1.31 K/mm3 (0.9-3.2); Lymphocytes Percent Auto 7.2 % (18.3-44.2); Mean Corpuscular HGB Conc 30.9 g/dl (32-36); Mean Corpuscular Hemoglobin 23.6 pg (26-34); Mean Corpuscular Volume 76.2 fl (80-100); Mean Platelet Volume 9.8 fl (7.4-10.4); Monocytes Absolute Auto 4.2 K/mm3 (0.1-0.6); Monocytes Percent Auto 23.3 % (2.6-8.5); Neutrophils Absolute Auto 12.3 K/mm3 (1.3-6.7); Platelet Count Result 261 k/mm3 (150-375); Red Blood Count 4.37 M/mm3 (4.2-5.4); Red Cell Distribution Width 15.9 % (11.5-14.5); White Blood Count 18.1 K/mm3 (4.5-10.0)
[2022-10-29 04:34] LABS: Alanine Aminotransferase 18 U/L (6-35); Albumin Level 2.4 g/dL (3.5-5.1); Alkaline Phosphatase 71 U/L (38-126); Anion Gap 1 mmol/L (8-16); Aspartate Amino Transferase 17 U/L (14-36); Bilirubin,Total 0.4 mg/dL (0.2-1.3); Blood Urea Nitrogen 6 mg/dL (7-17); Calcium 9.9 mg/dL (8.4-10.2); Carbon Dioxide 27 mmol/L (22-30); Chloride 107 mmol/L (98-107); Estimated CRCL calculation 71 ml/min; Estimated Glomerular Filt Rate > 60; Glucose 201 mg/dL (65-110); Magnesium 1.7 mg/dL (1.6-2.3); Potassium 3.8 mmol/L (3.4-5.0); Sodium 135 mmol/L (137-145)
[2022-10-29] MEDS: LACTATED RINGERS 1,000 ML 125 ML IV CONT (05:25)
[2022-10-29] MEDS: LEVOTHYROXINE SODIUM INJ 100 MCG/5 ML VIAL 40 MCG IV PUSH (05:44)
[2022-10-29] MEDS: INSULIN ASPART (*BKC) 100 UNITS/ML SUB-Q ×2 (05:47→07:48)
[2022-10-29 05:49] LABS: Glucose Point of Care 220 mg/dl (65-105)
[2022-10-29 06:11] LABS: Alveolar/Arterial O2 Gradient 66.8 mmHg; Base Excess ABG -0.9 mEq/l (+/-2.0); Carboxyhemoglobin 1.4 % THb (0-2.0); Fractional Inspired Oxygen 28 %; HCO3 ABG 25.5 mEq/l (22.0-26.0); Methemoglobin ABG 0.3 %THb (0-1.5); Oxygen Content ABG 20.5 %vol (16.0-22.0); Oxygen Saturation ABG 94.3 % (95.0-100.0); Oxyhemoglobin 92.9 % THb (90.0-100.0); PCO2 ABG 48.5 mmHg (35.0-45.0); PO2 ABG 75.6 mmHg (80.0-100.0); Reduced Hemoglobin 5.4 %THb (0-5.0); Total Hemoglobin 15.7 g/dL (12.0-18.0); pH ABG 7.338 (7.350-7.450)
[2022-10-29 06:12] LABS: Modified Allen's Test Pass; Site Drawn RIGHT RADIAL
[2022-10-29] MEDS: ENOXAPARIN 40 MG/0.4 ML SYRINGE SUB-Q (07:51)
[2022-10-29] MEDS: DORZOLAMIDE HCL 2% OPHTH DROPS 1 DROP EACH EYE ×2 (07:52→16:43)
[2022-10-29] MEDS: PANTOPRAZOLE SODIUM IV 40 MG VIAL IV PUSH (07:52)
[2022-10-29] MEDS: MUPIROCIN 2% OINT 22 GM TUBE 1 APPLIC TOPICAL (07:56)
[2022-10-29] MEDS: FLECAINIDE ACETATE 50 MG TABLET FEED TUBE ×2 (08:19→20:51)
[2022-10-29 08:25] LABS: Glucose Point of Care 203 mg/dl (65-105)
--- NOTE | 2022-10-29 09:14 | WPDINTPN ---
Progress Note: A&P Assessment and Plan (1) Acute respiratory failure: Code(s): J96.00 - Acute respiratory failure, unspecified whether with hypoxia or hypercapnia Status: Acute Assessment and Plan: Acute Respiratory failure secondary to general anesthesia an acute ischemic colitis 10/28: Extubated Currently on 1 L nasal cannula -currently incentive spirometry, - PT/OT to evaluate patient -up in chair with assistance and as tolerated (2) Sepsis: Code(s): A41.9 - Sepsis, unspecified organism Status: Inactive Assessment and Plan: Secondary to ischemic colitis and UTI Status post adequate IV fluids Hemodynamically acceptable and patient has not required any vasopressor -continue meropenem 10/28 -10/27 Urine culture: no growth so far -10/28 blood cultures: Preliminary result is negative x2 (3) Acute ischemic colitis: Code(s): K55.039 - Acute (reversible) ischemia of large intestine, extent unspecified Status: Acute Assessment and Plan: Status post total colectomy and end ileostomy Management per General surgery Management of sepsis and respiratory failure as above (4) GERD (gastroesophageal reflux disease): Code(s): K21.9 - Gastro-esophageal reflux disease without esophagitis Status: Acute Assessment and Plan: PPI (5) Hypothyroidism: Code(s): E03.9 - Hypothyroidism, unspecified Status: Acute Assessment and Plan: continue levothyroxine (6) Type 2 diabetes mellitus: Code(s): E11.9 - Type 2 diabetes mellitus without complications Status: Acute Assessment and Plan: Sliding scale and Accu-Chek (7) Atrial fibrillation: Code(s): I48.91 - Unspecified atrial fibrillation Status: Acute Assessment and Plan: History of atrial fibrillation but currently in sinus rhythm -Continue flecainide which is her home medication Anticoagulation is on hold and will be resumed by general surgery since patient is postop Plan DVT prophylaxis: Enoxaparin Stress ulcer prophylaxis: PPI Nutrition: NPO at this time surgery decided 10/29: Discussed with patient's family at bedside, updated them with patient's condition plan of care. This stated that she sits in a chair for breakfast and then at the correction for approximately 2 hours each. I did updated them regarding patient's labs, and stated that we will wait for surgery to, discuss regarding oral intake Code Status - Full Code : Total Critical Care Time: 32 minutes 10/28: Dr. Singh spoke to patient's daughter at bedside and updated her with patient's status, current treatment plan. Also discussed goals of care and code status. 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 Patient's wants her to stay full code although they will revisit this issue with him again. Due to a high probability of clinically significant, life threatening deterioration, the patient required my highest level of preparedness to intervene emergently and I personally spent this critical care time directly and personally managing the patient. This critical care time included obtaining a history; examining the patient; pulse oximetry; ordering and review of studies; arranging urgent treatment with development of a management plan; evaluation of patient's response to treatment; frequent reassessment; and discussions with other providers. It was exclusive of separately billable procedures and treating other patients and teaching time. Please see Assessment and Plan section and the rest of the note for further information on patient assessment and treatment Subjective Date/time seen: 10/29/22 09:14 Interval history: 10/27/2022: Patient presented with diffuse abdominal pain, pneumatosis of the ascending col
--- NOTE | 2022-10-29 09:59 | PCOTNOTE ---
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 Patient is dependent with transfers and uses a 2 person assist with a sit to stand machine or a razia lift for all transfers. Patient does not participate in bed mobility and is dependent. Spoke with ordering MD Dr. Nicole, who is agreeable to canceling orders at this time with patient at functional baseline.
--- NOTE | 2022-10-29 10:32 | PCPTNOTE ---
Per OT: Pt is dependent at baseline with mobility. Sat Math Tutor aware and OK DC of therapy orders at this time.
--- NOTE | 2022-10-29 10:37 | PCNFU ---
Nutrition Follow-Up Complete: Inadequate oral intake related to NPO status, increased needs from wounds, altered GI function as evidenced by current orders, status post total colectomy. Goal: Meet estimated energy needs Patient will continue with current goal. Pt current nutrition is NPO. Last recorded weight is 82.2 kg. Bowel Motility:+BM reported 10/29 Labs Reviewed:Glu 201, Na 135, Hct 33.3,Hgb 10.3 Meds Noted:Zosyn, Protonix, Skin: Stage III Pressure Ulcer-coccyx Additional Notes: Patient remains NPO. NGT to suction. Surgery to advance diet orders as tolerated. Agree with diet orders at this time. Monitoring diet advancement, orders, plan of care, labs, weights Follow up in 5 days for NPO/Clear liquid status. Monitoring daily in ICU rounds
--- NOTE | 2022-10-29 11:15 | PM.PNGS ---
Progress Note: A&P Assessment and Plan (1) Acute ischemic colitis: Code(s): K55.039 - Acute (reversible) ischemia of large intestine, extent unspecified Status: Acute Assessment and Plan: Remove NG and start clears today Monitor I/O's with ileostomy output Monitor H/H. Might restart anticoagulation tomorrow if stable. 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 Ostomy functioning. No acute events overnight. Exam GI: Inspection: non-distended and incision (intact with lynette, no significant bleeding) GI Palp: Yes Soft to palpation and Yes Tenderness to palpation present (GI) (incisional) Auscultation: normal bowel sounds Other: Ileostomy pink and functioning. Objective Data Vital Signs Vital Signs: Vital Signs - 24 hr 10/28/22 12:00 10/28/22 12:00 10/28/22 12:00 Temperature 37.0 C Pulse Rate 82 82 82 Respiratory Rate 19 19 Blood Pressure 159/63 H Pulse Oximetry 98 98 Oxygen Delivery Nasal Cannula Oxygen Flow Rate 2 Fraction of Inspired Oxygen 10/28/22 14:00 10/28/22 14:00 10/28/22 16:00 Temperature Pulse Rate 81 81 85 Respiratory Rate 15 Blood Pressure 166/64 H Pulse Oximetry 99 Oxygen Delivery Oxygen Flow Rate Fraction of Inspired Oxygen 10/28/22 16:00 10/28/22 16:00 10/28/22 18:00 Temperature 37.1 C Pulse Rate 85 85 79 Respiratory Rate 18 18 Blood Pressure 148/54 H Pulse Oximetry 98 98 Oxygen Delivery Nasal Cannula Oxygen Flow Rate 2 Fraction of Inspired Oxygen 10/28/22 18:00 10/28/22 20:38 10/28/22 20:55 Temperature Pulse Rate 79 82 89 Respiratory Rate 15 18 Blood Pressure 126/50 L Pulse Oximetry 97 96 Oxygen Delivery Nasal Cannula Oxygen Flow Rate 2 Fraction of Inspired Oxygen 10/28/22 20:00 10/28/22 20:00 10/28/22 22:00 Temperature 37.4 C Pulse Rate 80 85 Respiratory Rate 16 Blood Pressure 143/54 H Pulse Oximetry 97 96 Oxygen Delivery Nasal Cannula Oxygen Flow Rate 2 Fraction of Inspired Oxygen 10/28/22 22:00 10/29/22 00:00 10/29/22 00:00 Temperature 37.7 C H Pulse Rate 85 84 Respiratory Rate 17 18 Blood Pressure 138/49 L 171/66 H Pulse Oximetry 96 97 98 Oxygen Delivery Nasal Cannula Oxygen Flow Rate 2 Fraction of Inspired Oxygen 10/29/22 00:00 10/28/22 20:00 10/29/22 02:00 Temperature Pulse Rate 84 80 76 Respiratory Rate Blood Pressure Pulse Oximetry Oxygen Delivery Oxygen Flow Rate Fraction of Inspired Oxygen 10/29/22 02:00 10/29/22 01:00 10/29/22 04:00 Temperature Pulse Rate 76 80 Respiratory Rate 14 Blood Pressure 141/61 H 125/58 L Pulse Oximetry 98 Oxygen Delivery Oxygen Flow Rate Fraction of Inspired Oxygen 10/29/22 04:00 10/29/22 04:00 10/29/22 06:00 Temperature 37.2 C Pulse Rate 80 69 Respiratory Rate 12 Blood Pressure 102/44 L Pulse Oximetry 96 96 Oxygen Delivery Nasal Cannula Oxygen Flow Rate 2 Fraction of Inspired Oxygen 10/29/22 06:00 10/29/22 08:19 10/29/22 08:38 Temperature Pulse Rate 69 75 71 Respiratory Rate 12 16 Blood Pressure 120/48 L Pulse Oximetry 97 94 Oxygen Delivery Nasal Cannula Oxygen Flow Rate 1 Fraction of Inspired Oxygen 24 10/29/22 08:00 10/29/22 08:00 10/29/22 08:00 Temperature 36.5 C Pulse Rate 73 73 73 Respiratory Rate 12 12 Blood Pressure 133/55 L Pulse Oximetry 96 96 Oxygen Delivery Nasal Cannula Oxygen Flow Rate 2 Fraction of Inspired Oxygen 10/29/22 10:00 10/29/22 10:00 10/29/22 10:29 Temperature Pulse Rat
[2022-10-29 12:08] LABS: Glucose Point of Care 171 mg/dl (65-105)
--- NOTE | 2022-10-29 15:44 | PC.NURSE ---
This patient, Perla Leon, [facility] 10[facility]22 at 1530. Personal belongings sent with patient. Report given to Iliana. Appropriate documentation sent with patient.
[2022-10-29 17:04] LABS: Glucose Point of Care 167 mg/dl (65-105)
[2022-10-30] MEDS: MEROPENEM 1 GM in SODIUM CHLORIDE 0.9% IV 100 ML 240 ML IVPB (00:27)
[2022-10-30] MEDS: LACTATED RINGERS 1,000 ML 50 ML IV CONT (00:27)
[2022-10-30 12:10] LABS: Glucose Point of Care 182 mg/dl (65-105)
[2022-10-30 16:52] LABS: Glucose Point of Care 224 mg/dl (65-105)
[2022-10-30 20:27] VITALS: PULSE 64
[2022-10-30] MEDS: FLECAINIDE ACETATE 50 MG TABLET FEED TUBE (20:27)
[2022-10-30] MEDS: APIXABAN 5 MG TABLET PO (20:27)
[2022-10-30] MEDS: DORZOLAMIDE HCL 2% OPHTH DROPS 1 DROP EACH EYE (20:28)
[2022-10-30 20:38] VITALS: BP 133/40; PULSE 66; RESP 16; TEMP 36.1; O2SAT 94
[2022-10-30 21:09] VITALS: PULSE 69; O2SAT 93
--- NOTE | 2022-10-30 21:34 | PC.NURSE ---
Paper documentation exists on this patient due to [facility] downtime on 10/30/22 from 0030 to [1930] .
[2022-10-30 23:38] LABS: Glucose Point of Care 162 mg/dl (65-105)
[2022-10-31] VITALS (8 sets, daily range): BP systolic 117–143; BP diastolic 43–56; PULSE 65–72; RESP 16–19; TEMP 36.1–36.7; O2SAT 93–95
[2022-10-31] MEDS: MEROPENEM 1 GM in SODIUM CHLORIDE 0.9% IV 100 ML 240 ML IVPB ×3 (00:25→17:12)
[2022-10-31] MEDS: HYDROcodone/acetaminophen (*CRX) 5-325 MG TABLET 1 TAB PO ×2 (02:12→06:06)
[2022-10-31 05:22] LABS: Hematocrit 31.3 % (37.0-47.0); Hemoglobin 9.9 g/dL (12.0-15.0); Mean Corpuscular HGB Conc 31.6 g/dl (32-36); Mean Corpuscular Hemoglobin 23.5 pg (26-34); Mean Corpuscular Volume 74.3 fl (80-100); Mean Platelet Volume 10.1 fl (7.4-10.4); Platelet Count Result 272 k/mm3 (150-375); Red Blood Count 4.21 M/mm3 (4.2-5.4); Red Cell Distribution Width 15.8 % (11.5-14.5); White Blood Count 11.3 K/mm3 (4.5-10.0)
[2022-10-31 05:31] LABS: Alanine Aminotransferase 13 U/L (6-35); Albumin Level 2.3 g/dL (3.5-5.1); Alkaline Phosphatase 68 U/L (38-126); Anion Gap 0 mmol/L (8-16); Aspartate Amino Transferase 14 U/L (14-36); Bilirubin,Total 0.4 mg/dL (0.2-1.3); Blood Urea Nitrogen 4 mg/dL (7-17); Calcium 9.4 mg/dL (8.4-10.2); Carbon Dioxide 28 mmol/L (22-30); Chloride 104 mmol/L (98-107); Estimated CRCL calculation 90 ml/min; Estimated Glomerular Filt Rate > 60; Glucose 174 mg/dL (65-110); Magnesium 1.6 mg/dL (1.6-2.3); Potassium 3.3 mmol/L (3.4-5.0); Sodium 132 mmol/L (137-145)
[2022-10-31] MEDS: LEVOTHYROXINE SODIUM INJ 100 MCG/5 ML VIAL 40 MCG IV PUSH (06:06)
[2022-10-31] MEDS: PANTOPRAZOLE SODIUM IV 40 MG VIAL IV PUSH (08:38)
[2022-10-31 08:43] LABS: Glucose Point of Care 179 mg/dl (65-105)
--- NOTE | 2022-10-31 09:31 | PM.PNGS ---
Progress Note: A&P Assessment and Plan (1) Acute ischemic colitis: Code(s): K55.039 - Acute (reversible) ischemia of large intestine, extent unspecified Status: Acute Assessment and Plan: doing well s/p subtotal colectomy, ileostomy working well, ADAT, encourage OOB/IS Subjective Subjective Date/Time Seen: 10/31/22 09:31 Interval history: feels good, no pain, good ostomy fxn, srinivasa full liquids Review of Systems Review of Systems: All systems reviewed & are unremarkable except as noted in HPI and below Exam Const: General: cooperative, comfortable and no acute distress Resp: Auscultation: clear to auscultation bilaterally Cardio: Rate: regular rate Rhythm: regular rhythm GI: Inspection: normal to inspection, non-distended and incision GI Palp: No abdominal tenderness, No Tenderness to palpation present (GI), No Guarding due to palpation present (GI) and No Rigid due to palpation Other: ileostomy - +fxn Objective Data Vital Signs Vital Signs: Vital Signs - 24 hr 10/30/22 20:27 10/30/22 20:38 10/30/22 20:00 Temperature 36.1 C L Pulse Rate 64 66 Respiratory Rate 16 Blood Pressure 133/40 L Pulse Oximetry 94 Oxygen Delivery Room Air 10/30/22 21:09 10/31/22 00:30 10/31/22 05:00 Temperature 36.3 C L 36.3 C L Pulse Rate 69 71 66 Respiratory Rate 16 16 Blood Pressure 138/56 L 142/46 H Pulse Oximetry 93 93 93 Oxygen Delivery Room Air 10/31/22 09:20 10/31/22 08:50 Temperature 36.6 C Pulse Rate 71 Respiratory Rate 18 Blood Pressure 117/43 L Pulse Oximetry 94 Oxygen Delivery Room Air Intake/Output Intake/Output: Intake & Output 10/28/22 10/29/22 10/30/22 10/31/22 23:59 23:59 23:59 23:59 Intake Total 2270 2725 120 680 Output Total 1390 925 800 Balance 880 1800 120 -120 Meds/Results Medications: Active Medications Generic Name Dose Route Start Last Admin Trade Name Freq PRN Reason Stop Dose Admin Hydrocodone Bitart/Acetaminophen 1 tab 10/30/22 17:55 10/31/22 06:06 Hydrocodone/Acetaminophen (*Crx) 5-325 Mg Tablet PO 1 tab Q4H PRN Administration Pain Rated 4-6 Hydrocodone Bitart/Acetaminophen 1 tab 10/30/22 17:56 Hydrocodone/Acetaminophen (*Crx) 10-325 Mg Tablet PO Q4H PRN Pain Rated 7-10 Albuterol 2.5 mg 10/28/22 09:31 Albuterol Sulfate Neb 2.5 Mg/3 Ml Inh INHALATION Q6HRT PRN Shortness Of Breath Apixaban 5 mg 10/30/22 21:00 10/30/22 20:27 Apixaban 5 Mg Tablet PO 5 mg Q12HR KATHARINE Administration Dextrose 12.5 gm 10/27/22 22:05 Dextrose 50% 25 Gm/50 Ml Syringe IV PUSH PRN PRN Hypoglycemia Protocol Dorzolamide HCl 1 drop 10/28/22 17:00 10/30/22 20:28 Dorzolamide Hcl 2% Ophth Drops EACH EYE 1 drop BID KATHARINE Administration Flecainide Acetate 50 mg 10/28/22 21:00 10/30/22 20:27 Flecainide Acetate 50 Mg Tablet FEED TUBE 50 mg Q12HR KATHARINE Administration Glucagon 1 mg 10/27/22 22:05 Glucagon For Inj 1 Mg Vial IM PRN PRN Hypoglycemia Protocol Glucose 15 gm 10/27/22 22:05 Glucose Oral Gel 15 Gm Of Glucse In 37.5 Gm Tube PO PRN PRN Hypoglycemia Protocol Hydromorphone HCl 1 mg 10/28/22 01:29 10/29/22 03:41 Hydromorphone Hcl Inj (*Crx) 1 Mg/Ml Syr IV PUSH 1 mg Q2H PRN Administration Pain Rated 7-10 Hydromorphone HCl 0.5 mg 10/28/22 01:29 10/29/22 16:42 Hydromorphone Hcl Inj (*Crx) 1 Mg/Ml Syr IV PUSH 0.5 mg Q2H PRN Administration Pain Rated 4-6 Dextrose 1,000 mls @ 100 mls/hr 10/27/22 22:05 Dextrose 5% 1,000 Ml IVPB PRN PRN Hypoglycemia Protocol Lactated Ringer's 1,000 mls @ 50 mls/hr 10/28/22 01:29 10/30/22 00:27 Lr - Lactated Ringers Iv IV CONT 50 mls/hr .Q20H KATHARINE Administration Meropenem 1 gm/ Sodium 120 mls @ 240 mls/hr 10/28/22 09:00 10/31/22 02:16 Chloride IVPB Not Given Q8H [facility] Insulin Aspart 3 - 6 units 10/29/22 12
[2022-10-31] MEDS: MUPIROCIN 2% OINT 22 GM TUBE 1 APPLIC TOPICAL (11:47)
[2022-10-31 12:02] LABS: Glucose Point of Care 186 mg/dl (65-105)
[2022-10-31] MEDS: APIXABAN 5 MG TABLET PO ×2 (12:09→20:50)
[2022-10-31] MEDS: FLECAINIDE ACETATE 50 MG TABLET PO ×2 (12:10→20:48)
[2022-10-31] MEDS: POTASSIUM CHLORIDE 20 MEQ ER TABLET 40 MEQ PO (12:11)
[2022-10-31 13:38] LABS: Hematocrit 34.1 % (37.0-47.0); Hemoglobin 10.4 g/dL (12.0-15.0); Mean Corpuscular HGB Conc 30.5 g/dl (32-36); Mean Corpuscular Hemoglobin 23.4 pg (26-34); Mean Corpuscular Volume 76.8 fl (80-100); Platelet Count Result 310 k/mm3 (150-375); Red Blood Count 4.44 M/mm3 (4.2-5.4); Red Cell Distribution Width 15.9 % (11.5-14.5)
[2022-10-31 13:39] LABS: Anion Gap 0 mmol/L (8-16); Blood Urea Nitrogen 5 mg/dL (7-17); Carbon Dioxide 30 mmol/L (22-30); Chloride 105 mmol/L (98-107); Estimated CRCL calculation 8 ml/min; Estimated Glomerular Filt Rate 8; Glucose 183 mg/dL (65-110); Potassium 3.5 mmol/L (3.4-5.0); Sodium 135 mmol/L (137-145)
[2022-10-31 13:40] LABS: Alanine Aminotransferase 15 U/L (6-35); Albumin Level 2.5 g/dL (3.5-5.1); Alkaline Phosphatase 71 U/L (38-126); Aspartate Amino Transferase 16 U/L (14-36); Bilirubin,Total 0.4 mg/dL (0.2-1.3); Magnesium 1.8 mg/dL (1.6-2.3); Total Protein 5.3 g/dL (6.3-8.2); Triglycerides 132 mg/dL (<150)
[2022-10-31] MEDS: busPIRone HCL 5 MG TABLET PO ×2 (13:51→17:10)
[2022-10-31] MEDS: DORZOLAMIDE HCL 2% OPHTH DROPS 2 DROP EACH EYE ×2 (13:52→17:12)
[2022-10-31] MEDS: SALINE LOCK FLUSH 2 ML IV PUSH (13:52)
[2022-10-31] MEDS: HYDROcodone/acetaminophen (*CRX) 10-325 MG TABLET 1 TAB PO ×2 (16:02→20:50)
[2022-10-31 17:06] LABS: Glucose Point of Care 154 mg/dl (65-105)
[2022-10-31] MEDS: POTASSIUM CHLORIDE 20 MEQ ER TABLET PO (17:10)
[2022-10-31] MEDS: ESCITALOPRAM OXALATE 10 MG TABLET PO (20:49)
[2022-10-31] MEDS: ROSUVASTATIN 10 MG TABLET PO (20:49)
[2022-10-31] MEDS: INSULIN GLARGINE (*BKC) 100 UNITS/ML 12 UNITS SUB-Q (20:50)
[2022-10-31 21:02] LABS: Glucose Point of Care 158 mg/dl (65-105)
[2022-11-01] MEDS: SALINE LOCK FLUSH 2 ML IV PUSH ×2 (00:06→05:28)
[2022-11-01] MEDS: MEROPENEM 1 GM in SODIUM CHLORIDE 0.9% IV 100 ML 240 ML IVPB (00:06)
[2022-11-01 04:00] VITALS: BP 141/50; PULSE 71; RESP 17; TEMP 36.6; O2SAT 93
[2022-11-01] MEDS: HYDROcodone/acetaminophen (*CRX) 10-325 MG TABLET 1 TAB PO (05:31)
[2022-11-01] MEDS: LEVOTHYROXINE SODIUM 75 MCG TABLET PO (05:31)
[2022-11-01 05:42] LABS: Hematocrit 33.7 % (37.0-47.0); Hemoglobin 10.5 g/dL (12.0-15.0); Mean Corpuscular HGB Conc 31.2 g/dl (32-36); Mean Corpuscular Hemoglobin 23.5 pg (26-34); Mean Corpuscular Volume 75.4 fl (80-100); Mean Platelet Volume 10.3 fl (7.4-10.4); Platelet Count Result 312 k/mm3 (150-375); Red Blood Count 4.47 M/mm3 (4.2-5.4); Red Cell Distribution Width 15.8 % (11.5-14.5); White Blood Count 11.3 K/mm3 (4.5-10.0)
[2022-11-01 05:53] LABS: Alanine Aminotransferase 14 U/L (6-35); Albumin Level 2.4 g/dL (3.5-5.1); Alkaline Phosphatase 68 U/L (38-126); Anion Gap 3 mmol/L (8-16); Aspartate Amino Transferase 17 U/L (14-36); Bilirubin,Total 0.3 mg/dL (0.2-1.3); Blood Urea Nitrogen 5 mg/dL (7-17); Calcium 9.2 mg/dL (8.4-10.2); Carbon Dioxide 26 mmol/L (22-30); Chloride 106 mmol/L (98-107); Estimated CRCL calculation 72 ml/min; Estimated Glomerular Filt Rate > 60; Glucose 157 mg/dL (65-110); Potassium 3.7 mmol/L (3.4-5.0); Sodium 135 mmol/L (137-145); Triglycerides 167 mg/dL (<150)
[2022-11-01 08:00] VITALS: PULSE 71; RESP 17; O2SAT 93
[2022-11-01 08:24] LABS: Glucose Point of Care 148 mg/dl (65-105)
[2022-11-01] MEDS: FUROSEMIDE 40 MG TABLET PO (08:52)
[2022-11-01] MEDS: busPIRone HCL 5 MG TABLET PO (08:52)
[2022-11-01] MEDS: ANASTROZOLE (*CHEMO) 1 MG TABLET PO (08:52)
[2022-11-01] MEDS: POTASSIUM CHLORIDE 20 MEQ ER TABLET PO (08:52)
[2022-11-01] MEDS: APIXABAN 5 MG TABLET PO (08:52)
[2022-11-01] MEDS: MUPIROCIN 2% OINT 22 GM TUBE 1 APPLIC TOPICAL (08:53)
[2022-11-01] MEDS: DORZOLAMIDE HCL 2% OPHTH DROPS 2 DROP EACH EYE (08:53)
[2022-11-01] MEDS: PANTOPRAZOLE 40 MG TABLET PO (08:53)
[2022-11-01] MEDS: SPIRONOLACTONE 25 MG TABLET PO (08:53)
--- NOTE | 2022-11-01 09:14 | PM.DS ---
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 Her CT in the emergency department showed evidence of pneumatosis coli and free air consistent with possible perforated viscus. She had an elevated white blood count and slightly elevated lactate level, but was otherwise hemodynamically stable. She did have a chronic history of constipation and difficulties with bowel stimulation due to familial spastic paraplegia. Comparing her current CT to prior CTs, she has had a very dilated and distended colon for a long time. She was taken emergently to the operating room for exploratory laparotomy. Subtotal colectomy was performed with end ileostomy. She was then admitted to the ICU postoperatively and she remained intubated. On postop day 1 she was doing well and was extubated in the ICU. She had an NG-tube placed at the time of surgery and this was left in place. On postop day 1 she was having some output from her ileostomy. On postop day 2 she was continuing to improve and was transferred out of the ICU. She was started on a clear liquid diet and her NG tube was removed. Her diet was then slowly advanced over the next couple days. Her pathology showed evidence of megacolon, but there was no clear evidence of ischemia or perforation. On 11/01/2022, her pain was well controlled and she was tolerating a solid diet. Her ostomy output was adequate. She was then discharged back to her care home facility. Status at Discharge Functional status at discharge: bed bound Overall status at discharge: patient is progressing back to baseline Time Spent with Patient Time attestation: Total time spent providing and/or coordinating discharge services: Time spent: Less than 30 minutes Exam Const: General: comfortable and no acute distress Resp: Effort & Inspection: normal respiratory effort Auscultation: clear to auscultation bilaterally Cardio: Rate: regular rate Rhythm: regular rhythm GI: Inspection: incision (Intact with lynette) GI Palp: Yes Soft to palpation, Yes Tenderness to palpation present (GI) (Incisional) and No Guarding due to palpation present (GI) Auscultation: normal bowel sounds Other: Ileostomy in right upper quadrant with adequate output. Ileostomy pink and healthy and viable. DS: Data Data Completed and Pending Completed studies during hospitalization: Pending at discharge 10/28/22 00:22 Surgical [PTH] Routine Labs on day of discharge: Labs from last 24 hours 11/01/22 11/01/22 10/31/22 08:18 05:22 20:09 WBC 11.3 H RBC 4.47 Hgb 10.5 L Hct 33.7 L MCV 75.4 L MCH 23.5 L MCHC 31.2 L RDW 15.8 H Plt Count 312 MPV 10.3 Sodium 135 L Potassium 3.7 Chloride 106 Carbon Dioxide 26 Anion Gap 3 L BUN 5 L Creatinine 0.50 L Estim Creat Clear Calc 72 Estimated GFR > 60 Glucos
[2022-11-01 10:00] VITALS: BP 118/56; PULSE 71; RESP 20; TEMP 36.8; O2SAT 92
[2022-11-01 12:02] LABS: Glucose Point of Care 188 mg/dl (65-105)
[2022-11-01 12:03] VITALS: PULSE 80
[2022-11-01] MEDS: FLECAINIDE ACETATE 50 MG TABLET PO (12:03)
[2022-11-01 13:20] LABS: EDCOVIDSCREEN Negative (Negative)
--- NOTE | 2022-11-01 13:56 | PCCCNOTE ---
On 11/01/22, the student, [Cammy Dobson ], provided care and completed [employer] [facility] documentation on this patient. I have reviewed the student's documentation and agree with the findings.
== END 2022-11-01 15:47 | DRG 329 ==
LOC: ANHED 19:07 → ANHOUTPT 21:59 → ANHICU 10-28 01:35 → ANH2MED 10-29 15:36
PROVIDERS: Internal Medicine; Admitting Provider Surgery; Emergency Provider Emergency Medicine; PCP Family Medicine; Visit Provider Surgery
PROC: 0D1B0Z4 Bypass Ileum to Cutaneous, Open Approach (ICD-10-PCS; CPT 49000; principal; 2022-10-27 23:00)
DX: K59.39 Other megacolon (principal); A41.9 Sepsis, unspecified organism; L89.153 Pressure ulcer of sacral region, stage 3; K55.039 Acute (reversible) ischemia of large intestine, extent unspecified; J95.821 Acute postprocedural respiratory failure; G11.4 Hereditary spastic paraplegia; I25.10 Atherosclerotic heart disease of native coronary artery without angina pectoris; I48.91 Unspecified atrial fibrillation; E21.3 Hyperparathyroidism, unspecified; E03.9 Hypothyroidism, unspecified; E11.9 Type 2 diabetes mellitus without complications; F03.90 Unspecified dementia, unspecified severity, without behavioral disturbance, psychotic disturbance, mood disturbance, and anxiety; G35 Multiple sclerosis; G47.33 Obstructive sleep apnea (adult) (pediatric); I50.9 Heart failure, unspecified; I11.0 Hypertensive heart disease with heart failure; K21.9 Gastro-esophageal reflux disease without esophagitis; N31.9 Neuromuscular dysfunction of bladder, unspecified; K59.09 Other constipation; Z85.3 Personal history of malignant neoplasm of breast; Z86.711 Personal history of pulmonary embolism; Z20.822 Contact with and (suspected) exposure to COVID-19; Z79.4 Long term (current) use of insulin; Z79.01 Long term (current) use of anticoagulants; Z99.89 Dependence on other enabling machines and devices; Z91.199 Patient's noncompliance with other medical treatment and regimen due to unspecified reason; Z86.73 Personal history of transient ischemic attack (TIA), and cerebral infarction without residual deficits; Z90.710 Acquired absence of both cervix and uterus
CPT/HCPCS: 36415; 36600; 71045; 74177; 80048; 80053; 81001; 82375; 82805; 82948; 83050; 83605; 83690; 83735; 84443; 84478; 85025; 85027; 86850; 86900; 86901; 87040; 87086; 87088; 87426; 88307; 93005; 94002; 96361; 96365; 96375; 99285; A9270; C9113; C9803; J0330; J1100; J1170; J1650; J1815; J2185; J2270; J2405; J2543; J2704; J2710; J3010; J7030; J7120; Q9967

== ENCOUNTER 2022-11-03 16:55 | Inpatient (IN) | payer MEDICARE, MEDICAID, SELFPAY ==
[2022-11-03] VITALS (13 sets, daily range): BP systolic 128–162; BP diastolic 42–64; PULSE 80–85; RESP 14–23; TEMP 36.2–37.3; O2SAT 92–97; BMI 27.1
--- NOTE | ~2022-11-03 | CT_ITS ---
EXAMINATION: CT chest abdomen pelvis w con DATE: 11/03/2022 18:49 CDT INDICATION: Abdominal pain on the left. Status post colectomy. TECHNIQUE: Computed tomography (CT) of the chest, abdomen, and pelvis was performed with 100 cc Omnip aque 350 intravenous contrast. The dose-length product was 1034.82 mGy-cm. Automated exposure control and iterative reconstruction technique were employed. COMPARISON: CT dated 10/27/2022 FINDINGS: CHEST CT: There is atherosclerosis of the aorta and coronary arteries. Small pleural effusions are new. No thor acic lymphadenopathy. There are patchy groundglass opacities in both lungs, suspicious for pneumonia. ABDOMEN/PELVIS CT: Small amount of ascites. The liver, spleen, pancreas, adrenal glands and kidneys are unremarkable. St atus post colectomy with large amount of residual fecal material in the rectum. There is fluid in the perirectal space extending into the upper pelvis. There is a catheter extending into the bladder via transpubic approach. Small amount of fluid extends into the right inguinal hernia. No definite marino d off fluid collection to suggest abscess. Fluid in the abdomen and pelvis is likely postsurgical. Mo derate-severe thoracic and lumbar spondylosis. There is a vertically oriented laparotomy staple line. IMPRESSION: 1. Patchy extensive predominantly upper lobe groundglass opacification, suspicious for pneumonia. 2: New small pleural effusions. 3: Status post recent cholecystectomy with fluid in the abdomen and pelvis, likely post operative. No definite walled off fluid collection to suggest abscess. Reviewed, dictated and finalized at location A. IMPRESSION: 1. Patchy extensive predominantly upper lobe groundglass opacification, suspici ous for pneumonia. 2: New small pleural effusions. 3: Status post recent cholecystectomy with fluid in the abdomen and pelvis, lik padmini post operative. No definite walled off fluid collection to suggest abscess.
--- NOTE | ~2022-11-03 | CT_ITS ---
EXAMINATION: CT brain wo con DATE: 11/03/2022 18:44 INDICATION: Altered mental status. Possible infection. TECHNIQUE: Computed tomography (CT) of the head was performed without intravenous contrast. The dose- length product was 681.00 mGy-cm. Automated exposure control and iterative reconstruction technique w ere employed. COMPARISON: None FINDINGS: Generalized atrophy. There are scattered moderate periventricular and subcortical white mat ter changes, most likely related to small vessel ischemic disease (microangiopathy). No ventriculomeg felecia or midline shift. Basilar cisterns are patent. No acute infarction, hemorrhage, mass or mass effe ct. No depressed skull fractures. Paranasal sinuses and mastoids are pneumatized. IMPRESSION: 1. No acute intracranial abnormality. 2: Chronic age-related findings. Reviewed, dictated and finalized at location A.
--- NOTE | 2022-11-03 17:05 | ECG_ITS ---
Measurements Intervals [place] Rate: 78 P: -24 WV: 123 QRS: -40 QRSD: 113 T: 38 QT: 377 QTc: 431 Interpretive Statements SINUS RHYTHM MARKED LEFT AXIS DEVIATION [QRS AXIS < -30] LEFT ANTERIOR SUPERIOR HEMIBLOCK COMPARED TO ECG 10/27/2022 19:28:52 THERE IS NO DIFFERENCE Electronically Signed On 11-04-2022 15:41:28 CDT by Noah Damico M.D.
--- NOTE | 2022-11-03 17:22 | ED.GENADULT ---
HPI - General Adult General Chief complaint: Altered Mental Status <Matthew Barber PA-C - Last Filed: 11/03/22 23:05> Stated complaint: ?altered <Matthew Barber PA-C - Last Filed: 11/03/22 23:05> Time Seen by Provider: 11/03/22 17:03 <Matthwe Barber PA-C - Last Filed: 11/03/22 23:05> Source: patient <SERGIO Tadeo Last Filed: 11/03/22 23:05> Mode of arrival: EMS <SERGIO Tadeo Last Filed: 11/03/22 23:05> Limitations: altered mental status <SERGIO Tadeo Last Filed: 11/03/22 23:05> History of Present Illness HPI narrative: This is an 81-year-old female who is postop day 6 from Subtotal colectomy with end ileostomy via Exlap who is presenting to the ED via EMS from [facility] for chief complaint of altered mental status beginning today around 1400. Per facility she is normally A&O x4 and she became A&O x1 this afternoon. Patient patient states that she does not have any current abdominal pain. She denies vomiting. She is unable to tell me why she is here. Per chart review PMH of type 2 diabetes, HTN, ischemic colitis conditions. She is on regular Eliquis. <Matthew Barber PA-C - Last Filed: 11/03/22 23:05> Related Data Home medications: Home Medications Medication Instructions Recorded Confirmed anastrozole 1 mg tablet 1 mg PO DAILY 03/11/22 11/03/22 apixaban 5 mg tablet (Eliquis) 5 mg PO BID 03/11/22 11/03/22 bromfenac 0.07 % eye drops 1 drp RIGHT EYE DAILY 03/11/22 11/03/22 (Prolensa) cranberry extract 425 mg capsule 425 mg PO 1200 03/11/22 11/03/22 dorzolamide 2 % eye drops 2 drp EACH EYE TID 03/11/22 11/03/22 esomeprazole magnesium 40 mg 40 mg PO DAILY 03/11/22 11/03/22 capsule,delayed release flecainide 50 mg tablet 50 mg PO BID 03/11/22 11/03/22 insulin glargine 100 unit/mL (3 12 unit subcut HS 03/11/22 11/03/22 mL) subcutaneous pen (Lantus Solostar U-100 Insulin) levothyroxine 75 mcg tablet 75 mcg PO DAILY 03/11/22 11/03/22 nitroglycerin 0.4 mg sublingual 0.4 mg sublingual PRN PRN Chest 03/11/22 11/03/22 tablet Pain rosuvastatin 10 mg tablet 10 mg PO HS 03/11/22 11/03/22 sitagliptin phosphate 100 mg 100 mg PO DAILY 03/11/22 11/03/22 tablet (Januvia) spironolactone 25 mg tablet 25 mg PO DAILY 03/11/22 11/03/22 buspirone 5 mg tablet 5 mg PO TID 08/11/22 11/03/22 insulin glargine 100 unit/mL (3 12 unit subcut QAM 08/11/22 11/03/22 mL) subcutaneous pen (Lantus Solostar U-100 Insulin) ipratropium 0.5 mg-albuterol 3 mg 3 ml inhalation QID PRN Shortness 08/11/22 11/03/22 (2.5 mg base)/3 mL nebulization Of Breath Or Wheezing soln levothyroxine 75 mcg tablet 150 mcg PO DAILY 08/11/22 11/03/22 arginine-vitamin C-vitamin E oral 9.2 g PO BID 10/28/22 11/03/22 4.5 gram-156 mg/9.2 gram powder pkt (Arginaid) cephalexin 500 mg capsule 500 mg PO TID 10/28/22 11/03/22 escitalopram oxalate 10 mg tablet 10 mg PO QHS 10/28/22 11/03/22 acetaminophen 500 mg capsule 1,000 mg PO Q6H PRN pain 11/03/22 11/03/22 bromfenac 0.09 % eye drops 1 drp RIGHT EYE HS 11/03/22 11/03/22 <Matthew Barber PA-C - Last Filed: 11/03/22 23:05> Allergies/adverse reactions: Allergies Allergy/AdvReac Type Severity Reaction Status Date / Time black pepper Allergy Unknown Verified 11/04/22 00:13 diltiazem Allergy Unknown Verified 11/04/22 00:13 donepezil Allergy Unknown Verified 11/04/22 00:13 fluticasone Allergy Unknown Verified 11/04/22 00:13 metformin Allergy Unknown Verified 11/04/22 00:13 <Matthew Barber PA-C - Last Filed: 11/03/22 23:05> Review of Systems Review of Systems: ROS unobtainable: Yes unobtainable due to mental status <Matthew Barber PA-C - Last Filed: 11/03/22 23:05> [facility] Past Medical History Medical History: Medical History (Updated 11/04/22 @ 14:14 by LOYD Avendano) Atherosclerotic heart disease Atrial fibrillation Breast cancer Chronic idiopathic constipation Congestive heart failur
[2022-11-03] MEDS: SODIUM CHLORIDE 0.9% IV 1,000 ML 999 ML IV CONT (17:52)
[2022-11-03 17:58] LABS: Basophils Absolute Auto 0.1 K/mm3 (0.0-0.1); Basophils Percent Auto 0.5 % (0.2-1.2); Eosinophils Absolute Auto 0.7 K/mm3 (0-0.3); Eosinophils Percent Auto 3.7 % (0-4.4); Hematocrit 41.5 % (37.0-47.0); Hemoglobin 13.1 g/dL (12.0-15.0); Immature Granulocyte Percent A 1.1 % (0-0.5); Lymphocytes Absolute Auto 1.87 K/mm3 (0.9-3.2); Lymphocytes Percent Auto 9.9 % (18.3-44.2); Mean Corpuscular HGB Conc 31.6 g/dl (32-36); Mean Corpuscular Hemoglobin 23.4 pg (26-34); Mean Platelet Volume 9.8 fl (7.4-10.4); Monocytes Percent Auto 15.8 % (2.6-8.5); Neutrophils Absolute Auto 13.1 K/mm3 (1.3-6.7); Platelet Count Result 429 k/mm3 (150-375); Red Blood Count 5.61 M/mm3 (4.2-5.4); Red Cell Distribution Width 17.1 % (11.5-14.5); White Blood Count 18.9 K/mm3 (4.5-10.0)
[2022-11-03 18:10] LABS: Appearance Urine Clear (Clear); Bacteria Urine None Seen /hpf; Bilirubin Urine Negative (Negative); Blood Urine Negative (Negative); Color Urine Yellow (Yellow); Glucose Urine UA Negative (Negative); Ketones Urine Negative (Negative); Leukocyte Esterase Ur 1+ LEU/UL (Negative); Nitrate Urine Negative (Negative); Non Pathogenic Casts 0-2; Protein Urine Negative (Negative); RBC Urine 0-2 /hpf (0-2); Specific Grav Ur 1.007 (1.001-1.035); Squamous Epithelial Cell Urine None seen /hpf (Few); Urobilinogen Urine 0.2 mg/dL (<2.0); pH Urine 6.5 (5.0-9.0)
[2022-11-03 18:12] LABS: INR 1.2; Prothrombin Time 15.7 Seconds (11.1-14.7)
[2022-11-03 18:13] LABS: Lactic Acid Reflex 1.6 mmol/L (0.7-2.0)
[2022-11-03 18:13] LABS: Partial Thromboplastin Time 32.3 SECONDS (22.3-36.8)
[2022-11-03 18:15] LABS: Alanine Aminotransferase 17 U/L (6-35); Albumin Level 3.3 g/dL (3.5-5.1); Alkaline Phosphatase 106 U/L (38-126); Anion Gap 4 mmol/L (8-16); Aspartate Amino Transferase 17 U/L (14-36); Bilirubin,Total 0.4 mg/dL (0.2-1.3); Blood Urea Nitrogen 12 mg/dL (7-17); CRP 3.4 mg/dL (<1.0); Carbon Dioxide 26 mmol/L (22-30); Chloride 101 mmol/L (98-107); Estimated CRCL calculation 72 ml/min; Estimated Glomerular Filt Rate > 60; Glucose 203 mg/dL (65-110); Lipase 151 U/L (23-300); Potassium 4.1 mmol/L (3.4-5.0); Sodium 131 mmol/L (137-145)
[2022-11-03 18:32] LABS: Add Urine Microscopic? YES
--- NOTE | 2022-11-03 19:46 | PM.IMHP ---
H&P: HPI History of Present Illness Date/Time: 11/03/22 19:46 Chief Complaint: ams Narrative: EXAMINATION: CT brain wo con DATE: 11/03/2022 18:44 INDICATION: Altered mental status. Possible infection. TECHNIQUE: Computed tomography (CT) of the head was performed without intravenous contrast. The dose-length product was 681.00 mGy-cm. Automated exposure control and iterative reconstruction technique were employed. COMPARISON: None FINDINGS: Generalized atrophy. There are scattered moderate periventricular and subcortical white matter changes, most likely related to small vessel ischemic disease (microangiopathy). No ventriculomegaly or midline shift. Basilar cisterns are patent. No acute infarction, hemorrhage, mass or mass effect. No depressed skull fractures. Paranasal sinuses and mastoids are pneumatized. IMPRESSION: 1. No acute intracranial abnormality. 2:? Chronic age-related findings. EXAMINATION: CT chest abdomen pelvis w con DATE: 11/03/2022 18:49 CDT INDICATION: Abdominal pain on the left. Status post colectomy. TECHNIQUE: Computed tomography (CT) of the chest, abdomen, and pelvis was performed with 100 cc Omnipaque 350 intravenous contrast. The dose-length product was 1034.82 mGy-cm. Automated exposure control and iterative reconstruction technique were employed. COMPARISON: CT dated 10/27/2022 FINDINGS: CHEST CT: There is atherosclerosis of the aorta and coronary arteries. Small pleural effusions are new. No thoracic lymphadenopathy. There are patchy groundglass opacities in both lungs, suspicious for pneumonia. ABDOMEN/PELVIS CT: Small amount of ascites. The liver, spleen, pancreas, adrenal glands and kidneys are unremarkable. Status post colectomy with large amount of residual fecal material in the rectum. There is fluid in the perirectal space extending into the upper pelvis. There is a catheter extending into the bladder via transpubic approach. Small amount of fluid extends into the right inguinal hernia. No definite walled off fluid collection to suggest abscess. Fluid in the abdomen and pelvis is likely postsurgical. Moderate-severe thoracic and lumbar spondylosis. There is a vertically oriented laparotomy staple line. IMPRESSION: 1. Patchy extensive predominantly upper lobe groundglass opacification, suspicious for pneumonia. 2:? New small pleural effusions. 3: Status post recent cholecystectomy with fluid in the abdomen and pelvis, likely post operative. No definite walled off fluid collection to suggest abscess. Review of Systems Review of Systems: ROS unobtainable: Yes unobtainable due to mental status PMFSH Past Medical History Medical History (Updated 11/03/22 @ 22:27 by Magdi De Souza MD) Atherosclerotic heart disease Atrial fibrillation Breast cancer Chronic idiopathic constipation Congestive heart failure Familial spastic paraplegia GERD (gastroesophageal reflux disease) Glaucoma Hereditary spastic paraplegia History of pulmonary embolism Hyperparathyroidism Hypertension Hypothyroidism Multiple sclerosis Neurogenic bladder CATY (obstructive sleep apnea) uncompliant with CPAP TIA (transient ischemic attack) Type 2 diabetes mellitus Surgical History Surgical History Chronic suprapubic catheter H/O: hysterectomy Family History Family History Father Spastic paralysis Mother Breast cancer Social History Social History Social History: Resides at [facility]. She has 3 daughters. 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 Code status full code Smoking status: Never smoker Second hand tobacco smoke exposure: No Alcohol intake: never Substance use: never Substance use type: does not use Living arrangements: correction Additional living arrangements comments: [facility] Spiritual care concerns: No
[2022-11-03] MEDS: CEFEPIME 2 GM/NS 50 ML 2 GM/50 ML BAG IVPB (19:56)
[2022-11-03] MEDS: SODIUM CHLORIDE 0.9% IV 1,000 ML 125 ML IV CONT (20:22)
[2022-11-03] MEDS: AZITHROMYCIN 500 MG/NS 250 ML 500 MG/250 ML BAG 250 MG IVPB (20:26)
[2022-11-03 20:51] LABS: Glucose Point of Care 169 mg/dl (65-105)
--- NOTE | 2022-11-03 21:07 | ADMGEN ---
This patient, Perla Leon, was admitted to [facility] Surg Room 324-02. Patient/family oriented to hospital policies and general routines including ID bracelet, bed and alarms, visiting hours, pain management, procedures, bathroom and other care routines, personal items, smoking policy, room service/diet, and visiting hours. Information on how to activate the Rapid Response Team has been discussed. Patient/Family are encouraged to report perceived risks to care and to ask questions if they do not understand what they are told or what they should do.
[2022-11-03] MEDS: busPIRone HCL 5 MG TABLET PO (23:23)
[2022-11-03] MEDS: ACETAMINOPHEN 500 MG TABLET 1000 MG PO (23:23)
[2022-11-03] MEDS: APIXABAN 5 MG TABLET PO (23:23)
[2022-11-03] MEDS: DORZOLAMIDE HCL 2% OPHTH DROPS 2 DROP EACH EYE (23:24)
[2022-11-03] MEDS: ROSUVASTATIN 10 MG TABLET PO (23:24)
[2022-11-03] MEDS: FLECAINIDE ACETATE 50 MG TABLET PO (23:24)
[2022-11-03] MEDS: ESCITALOPRAM OXALATE 10 MG TABLET PO (23:24)
[2022-11-04] MEDS: LEVOTHYROXINE SODIUM 75 MCG TABLET PO (05:44)
[2022-11-04 06:00] VITALS: BP 129/53; PULSE 68; RESP 14; TEMP 36; O2SAT 97
[2022-11-04 07:24] LABS: Estimated CRCL calculation 78 ml/min; Estimated Glomerular Filt Rate > 60
[2022-11-04 07:50] LABS: Glucose Point of Care 155 mg/dl (65-105)
[2022-11-04 08:33] VITALS: PULSE 75
[2022-11-04] MEDS: FLECAINIDE ACETATE 50 MG TABLET PO ×2 (08:33→21:17)
[2022-11-04] MEDS: busPIRone HCL 5 MG TABLET PO ×3 (08:33→17:43)
[2022-11-04] MEDS: APIXABAN 5 MG TABLET PO ×2 (08:33→21:15)
[2022-11-04] MEDS: ANASTROZOLE (*CHEMO) 1 MG TABLET PO (08:34)
[2022-11-04] MEDS: DORZOLAMIDE HCL 2% OPHTH DROPS 2 DROP EACH EYE ×3 (08:35→21:17)
[2022-11-04] MEDS: INSULIN GLARGINE (*BKC) 100 UNITS/ML 12 UNITS SUB-Q ×2 (08:35→21:26)
[2022-11-04] MEDS: PANTOPRAZOLE 40 MG TABLET PO (08:35)
[2022-11-04] MEDS: ACETAMINOPHEN 500 MG TABLET 1000 MG PO ×3 (08:45→21:15)
[2022-11-04 09:37] LABS: Basophils Absolute Auto 0.1 K/mm3 (0.0-0.1); Basophils Percent Auto 0.5 % (0.2-1.2); Eosinophils Absolute Auto 0.9 K/mm3 (0-0.3); Eosinophils Percent Auto 5.7 % (0-4.4); Hemoglobin 11.6 g/dL (12.0-15.0); Immature Granulocyte Absolute 0.22 K/mm3 (0.00-0.031); Immature Granulocyte Percent A 1.4 % (0-0.5); Lymphocytes Absolute Auto 1.66 K/mm3 (0.9-3.2); Lymphocytes Percent Auto 10.6 % (18.3-44.2); Mean Corpuscular HGB Conc 31.4 g/dl (32-36); Mean Corpuscular Hemoglobin 23.6 pg (26-34); Mean Corpuscular Volume 75.4 fl (80-100); Mean Platelet Volume 10.4 fl (7.4-10.4); Monocytes Absolute Auto 2.7 K/mm3 (0.1-0.6); Monocytes Percent Auto 16.9 % (2.6-8.5); Neutrophils Absolute Auto 10.2 K/mm3 (1.3-6.7); Neutrophils Percent Auto 64.9 % (45.5-73.1); Platelet Count Result 381 k/mm3 (150-375); Red Blood Count 4.91 M/mm3 (4.2-5.4); Red Cell Distribution Width 15.9 % (11.5-14.5); White Blood Count 15.7 K/mm3 (4.5-10.0)
[2022-11-04 10:36] LABS: Alanine Aminotransferase 15 U/L (6-35); Albumin Level 2.9 g/dL (3.5-5.1); Alkaline Phosphatase 83 U/L (38-126); Anion Gap 4 mmol/L (8-16); Aspartate Amino Transferase 16 U/L (14-36); Bilirubin,Total 0.4 mg/dL (0.2-1.3); Blood Urea Nitrogen 7 mg/dL (7-17); Calcium 9.7 mg/dL (8.4-10.2); Carbon Dioxide 22 mmol/L (22-30); Chloride 107 mmol/L (98-107); Estimated CRCL calculation 78 ml/min; Estimated Glomerular Filt Rate > 60; Glucose 149 mg/dL (65-110); Potassium 3.8 mmol/L (3.4-5.0); Sodium 133 mmol/L (137-145)
[2022-11-04 11:35] LABS: Glucose Point of Care 167 mg/dl (65-105)
[2022-11-04] MEDS: CEFEPIME 1 GM/NS 50 ML 1 GM/50 ML BAG IVPB ×2 (12:12→21:25)
[2022-11-04] MEDS: TOLNAFTATE 1% POWDER 45 GM BTL 1 APPLIC TOPICAL ×2 (12:15→21:23)
--- NOTE | 2022-11-04 13:45 | P.PNIM_ITS ---
Progress Note: A&P Assessment and Plan (1) Hospital acquired PNA: Code(s): J18.9 - Pneumonia, unspecified organism; Y95 - Nosocomial condition Status: Acute Assessment and Plan: * CT of the chest showed upper lobe ground glass opacities, suspicious for PNA * Continue cefepime and vancomycin * Sputum culture if able * Urine antigens, and mycoplasma ordered * blood cultures pending * De-escalate as appropriate by culture results . * IS and PEP therapy (2) Atrial fibrillation: Qualifiers: Atrial fibrillation type: paroxysmal Qualified Code(s): I48.0 - Paroxysmal atrial fibrillation Code(s): I48.91 - Unspecified atrial fibrillation Status: Acute Assessment and Plan: * Stable * continue home medications * HR stable * Continue eliquis (3) Type 2 diabetes mellitus: Qualifiers: Diabetes mellitus terminal computer operator insulin use: with assisted use Diabetes mellitus complication status: without complication Qualified Code(s): E11.9 - Type 2 diabetes mellitus without complications; Z79.4 - senior living (current) use of insulin Code(s): E11.9 - Type 2 diabetes mellitus without complications Status: Acute Assessment and Plan: * Glucose 149 * A1c 7.7 * Lantus 12 unit Q12H * Insulin sliding scale * Accu cheks * Trend glucose and adjust therapy as indicated (4) Decubitus ulcer of sacral area: Qualifiers: Pressure injury stage: unspecified pressure injury stage Qualified Code(s): L89.159 - Pressure ulcer of sacral region, unspecified stage Code(s): L89.159 - Pressure ulcer of sacral region, unspecified stage Status: Acute Assessment and Plan: * Wound care to see * Stable * Follow ordered wound care orders (5) Neurogenic bladder: Code(s): N31.9 - Neuromuscular dysfunction of bladder, unspecified Status: Acute Assessment and Plan: * Suprapubic catheter in place * trend urine output * stable * UA does not appear to be infectious (6) Acute metabolic encephalopathy: Code(s): G93.41 - Metabolic encephalopathy Status: Acute Assessment and Plan: * Seems to be baseline confused per the family * Head CT shows no acute intracranial abnormalities * Reorientate as indicated * Promote good sleep/wake cycle * add melatonin, and Seroquel (7) Status post total colectomy: Code(s): Z90.49 - Acquired absence of other specified parts of digestive tract Status: Acute Assessment and Plan: * S/P colectomy * Incision with staple present and appears stable * add Bentyl for abdominal spasms * Stable * Ostomy is stable draining brown stool Time Spent With Patient Time: 59 minutes Time with patient: Greater than 35 minutes Subjective Date/time seen: 11/04/22 09:45 Interval history: 11/04/2245 Patient is doing ok. Daughter and are present. She currently is at baseline per her daughter. She stated that it is not uncommon for her to be confused. She currently denies any chest pain, shortness of breath, nausea, vomiting, diarrhea, constipation. Her daughter did mention that she is having some abdominal spasming. She also stated that she has multiple wounds noted on her body from just being at the rehab. She also stated
--- NOTE | 2022-11-04 13:45 | PM.IMPN ---
Progress Note: A&P Assessment and Plan (1) Hospital acquired PNA: Code(s): J18.9 - Pneumonia, unspecified organism; Y95 - Nosocomial condition Status: Acute Assessment and Plan: CT of the chest showed upper lobe ground glass opacities, suspicious for PNA Continue cefepime and vancomycin Sputum culture if able Urine antigens, and mycoplasma ordered blood cultures pending De-escalate as appropriate by culture results . IS and PEP therapy (2) Atrial fibrillation: Qualifiers: Atrial fibrillation type: paroxysmal Qualified Code(s): I48.0 - Paroxysmal atrial fibrillation Code(s): I48.91 - Unspecified atrial fibrillation Status: Acute Assessment and Plan: Stable continue home medications HR stable Continue eliquis (3) Type 2 diabetes mellitus: Qualifiers: Diabetes mellitus director long term care insulin use: with director long term care use Diabetes mellitus complication status: without complication Qualified Code(s): E11.9 - Type 2 diabetes mellitus without complications; Z79.4 - moth exterminator (current) use of insulin Code(s): E11.9 - Type 2 diabetes mellitus without complications Status: Acute Assessment and Plan: Glucose 149 A1c 7.7 Lantus 12 unit Q12H Insulin sliding scale Accu cheks Trend glucose and adjust therapy as indicated (4) Decubitus ulcer of sacral area: Qualifiers: Pressure injury stage: unspecified pressure injury stage Qualified Code(s): L89.159 - Pressure ulcer of sacral region, unspecified stage Code(s): L89.159 - Pressure ulcer of sacral region, unspecified stage Status: Acute Assessment and Plan: Wound care to see Stable Follow ordered wound care orders (5) Neurogenic bladder: Code(s): N31.9 - Neuromuscular dysfunction of bladder, unspecified Status: Acute Assessment and Plan: Suprapubic catheter in place trend urine output stable UA does not appear to be infectious (6) Acute metabolic encephalopathy: Code(s): G93.41 - Metabolic encephalopathy Status: Acute Assessment and Plan: Seems to be baseline confused per the family Head CT shows no acute intracranial abnormalities Reorientate as indicated Promote good sleep/wake cycle add melatonin, and Seroquel (7) Status post total colectomy: Code(s): Z90.49 - Acquired absence of other specified parts of digestive tract Status: Acute Assessment and Plan: S/P colectomy Incision with staple present and appears stable add Bentyl for abdominal spasms Stable Ostomy is stable draining brown stool Time Spent With Patient Time: 59 minutes Time with patient: Greater than 35 minutes Subjective Date/time seen: 11/04/22 09:45 Interval history: 11/04/22944 Patient is doing ok. Daughter and are present. She currently is at baseline per her daughter. She stated that it is not uncommon for her to be confused. She currently denies any chest pain, shortness of breath, nausea, vomiting, diarrhea, constipation. Her daughter did mention that she is having some abdominal spasming. She also stated that she has multiple wounds noted on her body from just being at the rehab. She also stated that she really did not want her to have any pain medications at discharge. She stated that she feels they are giving her too many there and so she sleeps all day and is calling them all night. She also stated that she was able to stand prior to the abdominal surgery yesterday. She would like to see if she could possibly get some rehab. Complete review of systems unable to be obtained due to mental status. 11/03/221945 This is an 81-year-old female with past medical history significant for dementia, atrial fibrillation rate controlled anticoagulated, insulin-dependent diabetes mellitus, hy
[2022-11-04 13:47] VITALS: BMI 27.1
[2022-11-04 14:00] VITALS: BP 160/59; PULSE 71; RESP 14; TEMP 36.5; O2SAT 96
[2022-11-04 16:33] LABS: Glucose Point of Care 205 mg/dl (65-105)
--- NOTE | 2022-11-04 17:59 | PHAR ---
Addendum entered by Nelson Stanley [facility] 11/04/22 18:00: verified by pharmacy Original Note: [facility] HOME MED (Bromfenac [Prolensa] 0.07 % eye drops)
--- NOTE | 2022-11-04 18:52 | PC.NURSE ---
Pt frequently complaining of lower head/neck pain. Tylenol given when due, patient repositioned frequently. MD notified of pt complaints of pain, no new orders.
[2022-11-04] MEDS: ESCITALOPRAM OXALATE 10 MG TABLET PO (21:15)
[2022-11-04] MEDS: ROSUVASTATIN 10 MG TABLET PO (21:15)
[2022-11-04] MEDS: MELATONIN 5 MG TABLET PO (21:15)
[2022-11-04 21:17] VITALS: PULSE 76
[2022-11-04 21:25] LABS: Glucose Point of Care 156 mg/dl (65-105)
[2022-11-04 22:00] VITALS: BP 167/54; PULSE 74; RESP 14; TEMP 36.6; O2SAT 98
[2022-11-05] MEDS: LEVOTHYROXINE SODIUM 75 MCG TABLET PO (05:40)
[2022-11-05] MEDS: ACETAMINOPHEN 500 MG TABLET 1000 MG PO (05:43)
[2022-11-05 06:00] VITALS: BP 144/50; PULSE 70; RESP 14; TEMP 36.1; O2SAT 97
[2022-11-05 07:10] LABS: Basophils Absolute Auto 0.1 K/mm3 (0.0-0.1); Basophils Percent Auto 0.7 % (0.2-1.2); Eosinophils Absolute Auto 0.9 K/mm3 (0-0.3); Eosinophils Percent Auto 6.7 % (0-4.4); Hemoglobin 10.8 g/dL (12.0-15.0); Immature Granulocyte Absolute 0.19 K/mm3 (0.00-0.031); Immature Granulocyte Percent A 1.4 % (0-0.5); Lymphocytes Absolute Auto 1.54 K/mm3 (0.9-3.2); Lymphocytes Percent Auto 11.1 % (18.3-44.2); Mean Corpuscular HGB Conc 31.8 g/dl (32-36); Mean Corpuscular Hemoglobin 23.5 pg (26-34); Mean Corpuscular Volume 74.1 fl (80-100); Mean Platelet Volume 9.6 fl (7.4-10.4); Monocytes Absolute Auto 2.2 K/mm3 (0.1-0.6); Neutrophils Absolute Auto 8.9 K/mm3 (1.3-6.7); Neutrophils Percent Auto 64.1 % (45.5-73.1); Platelet Count Result 375 k/mm3 (150-375); Red Blood Count 4.59 M/mm3 (4.2-5.4); Red Cell Distribution Width 15.9 % (11.5-14.5); White Blood Count 13.8 K/mm3 (4.5-10.0)
[2022-11-05 07:22] LABS: Alanine Aminotransferase 14 U/L (6-35); Albumin Level 2.8 g/dL (3.5-5.1); Alkaline Phosphatase 73 U/L (38-126); Anion Gap 3 mmol/L (8-16); Aspartate Amino Transferase 15 U/L (14-36); Bilirubin,Total 0.3 mg/dL (0.2-1.3); Blood Urea Nitrogen 5 mg/dL (7-17); Calcium 9.8 mg/dL (8.4-10.2); Carbon Dioxide 22 mmol/L (22-30); Chloride 107 mmol/L (98-107); Estimated CRCL calculation 64 ml/min; Estimated Glomerular Filt Rate > 60; Glucose 144 mg/dL (65-110); Magnesium 2.1 mg/dL (1.6-2.3); Potassium 3.8 mmol/L (3.4-5.0); Sodium 132 mmol/L (137-145)
[2022-11-05 07:25] LABS: Ovalocytes 1+ (NORMAL); Platelet Estimate Adequate (Adequate); Poikilocytosis 1+ (NORMAL)
[2022-11-05 07:26] LABS: Schistocytes None Seen (NORMAL)
[2022-11-05 07:29] LABS: Glucose Point of Care 135 mg/dl (65-105)
[2022-11-05 07:33] LABS: Vancomycin Trough 10.7 ug/mL (10.0-20.0)
[2022-11-05] MEDS: CEFEPIME 1 GM/NS 50 ML 1 GM/50 ML BAG IVPB ×2 (08:38→22:54)
[2022-11-05] MEDS: DORZOLAMIDE HCL 2% OPHTH DROPS 2 DROP EACH EYE ×3 (08:42→21:42)
[2022-11-05 08:43] VITALS: PULSE 70
[2022-11-05] MEDS: FLECAINIDE ACETATE 50 MG TABLET PO ×2 (08:43→21:42)
[2022-11-05] MEDS: PANTOPRAZOLE 40 MG TABLET PO (08:43)
[2022-11-05] MEDS: ANASTROZOLE (*CHEMO) 1 MG TABLET PO (08:43)
[2022-11-05] MEDS: APIXABAN 5 MG TABLET PO ×2 (08:43→21:42)
[2022-11-05] MEDS: busPIRone HCL 5 MG TABLET PO ×3 (08:43→16:35)
[2022-11-05] MEDS: TOLNAFTATE 1% POWDER 45 GM BTL 1 APPLIC TOPICAL ×2 (08:45→21:50)
[2022-11-05] MEDS: INSULIN GLARGINE (*BKC) 100 UNITS/ML 12 UNITS SUB-Q ×2 (08:48→21:43)
[2022-11-05 11:32] LABS: Glucose Point of Care 273 mg/dl (65-105)
[2022-11-05 14:00] VITALS: BP 153/62; PULSE 74; RESP 16; TEMP 36.3; O2SAT 96
--- NOTE | 2022-11-05 15:00 | P.PNIM_ITS ---
Progress Note: A&P Assessment and Plan (1) Hospital acquired PNA: Code(s): J18.9 - Pneumonia, unspecified organism; Y95 - Nosocomial condition Status: Acute Assessment and Plan: * CT of the chest showed upper lobe ground glass opacities, suspicious for PNA * Continue cefepime and vancomycin * Sputum culture if able * Urine antigens, and mycoplasma ordered * blood cultures pending * De-escalate as appropriate by culture results . 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 insulin use: with prison use Diabetes mellitus complication status: without complication Qualified Code(s): E11.9 - Type 2 diabetes mellitus without complications; Z79.4 - shelter (current) use of insulin Code(s): E11.9 - Type 2 diabetes mellitus without complications Status: Acute Assessment and Plan: * Glucose 144 * A1c 7.7 * Lantus 12 unit Q12H * Insulin sliding scale * Accu cheks AC/HS * Trend glucose and adjust therapy as indicated (4) Decubitus ulcer of sacral area: Qualifiers: Pressure injury stage: unspecified pressure injury stage Qualified Code(s): L89.159 - Pressure ulcer of sacral region, unspecified stage Code(s): L89.159 - Pressure ulcer of sacral region, unspecified stage Status: Acute Assessment and Plan: * Wound care to see * Stable * Follow ordered wound care orders (5) Neurogenic bladder: Code(s): N31.9 - Neuromuscular dysfunction of bladder, unspecified Status: Acute Assessment and Plan: * Suprapubic catheter in place * trend urine output * stable * UA does not appear to be infectious (6) Acute metabolic encephalopathy: Code(s): G93.41 - Metabolic encephalopathy Status: Acute Assessment and Plan: * Seems to be baseline confused per the family * Head CT shows no acute intracranial abnormalities * Reorientate as indicated * Promote good sleep/wake cycle * add melatonin, and Seroquel * seems to better today (7) Status post total colectomy: Code(s): Z90.49 - Acquired absence of other specified parts of digestive tract Status: Acute Assessment and Plan: * S/P colectomy * Incision with staple present and appears stable * add Bentyl for abdominal spasms * Stable * Ostomy is stable draining brown stool Plan add tramadol for general pain Time Spent With Patient Time: 48 minutes Time with patient: Greater than 35 minutes Subjective Date/time seen: 11/05/221499 Interval history: 11/05/221499 patient is having some pain pt today. She stated that she is having abdominal spasms. Right lower almost epigastric pain. She is also complaining of a little bit of head pain. She also stated that she had ear pain we took a glass off it was better. Currently she denies any chest pain, shortness a breath, nausea, vomiting, diarrhea or constipation. Appetite
--- NOTE | 2022-11-05 15:00 | PM.IMPN ---
Progress Note: A&P Assessment and Plan (1) Hospital acquired PNA: Code(s): J18.9 - Pneumonia, unspecified organism; Y95 - Nosocomial condition Status: Acute Assessment and Plan: CT of the chest showed upper lobe ground glass opacities, suspicious for PNA Continue cefepime and vancomycin Sputum culture if able Urine antigens, and mycoplasma ordered blood cultures pending De-escalate as appropriate by culture results . 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 insulin use: with terminal gauger supervisor use Diabetes mellitus complication status: without complication Qualified Code(s): E11.9 - Type 2 diabetes mellitus without complications; Z79.4 - terminal make up operator (current) use of insulin Code(s): E11.9 - Type 2 diabetes mellitus without complications Status: Acute Assessment and Plan: Glucose 144 A1c 7.7 Lantus 12 unit Q12H Insulin sliding scale Accu cheks AC/HS Trend glucose and adjust therapy as indicated (4) Decubitus ulcer of sacral area: Qualifiers: Pressure injury stage: unspecified pressure injury stage Qualified Code(s): L89.159 - Pressure ulcer of sacral region, unspecified stage Code(s): L89.159 - Pressure ulcer of sacral region, unspecified stage Status: Acute Assessment and Plan: Wound care to see Stable Follow ordered wound care orders (5) Neurogenic bladder: Code(s): N31.9 - Neuromuscular dysfunction of bladder, unspecified Status: Acute Assessment and Plan: Suprapubic catheter in place trend urine output stable UA does not appear to be infectious (6) Acute metabolic encephalopathy: Code(s): G93.41 - Metabolic encephalopathy Status: Acute Assessment and Plan: Seems to be baseline confused per the family Head CT shows no acute intracranial abnormalities Reorientate as indicated Promote good sleep/wake cycle add melatonin, and Seroquel seems to better today (7) Status post total colectomy: Code(s): Z90.49 - Acquired absence of other specified parts of digestive tract Status: Acute Assessment and Plan: S/P colectomy Incision with staple present and appears stable add Bentyl for abdominal spasms Stable Ostomy is stable draining brown stool Plan add tramadol for general pain Time Spent With Patient Time: 48 minutes Time with patient: Greater than 35 minutes Subjective Date/time seen: 11/05/22 1500 Interval history: 11/05/22 1500 patient is having some pain pt today. She stated that she is having abdominal spasms. Right lower almost epigastric pain. She is also complaining of a little bit of head pain. She also stated that she had ear pain we took a glass off it was better. Currently she denies any chest pain, shortness a breath, nausea, vomiting, diarrhea or constipation. Appetite seems to be okay daughter was present all questions were answered plan of care was updated 11/04/22 0941 Patient is doing ok. Daughter and are present. She currently is at baseline per her daughter. She stated that it is not uncommon for her to be confused. She currently denies any chest pain, shortness of breath, nausea, vomiting, diarrhea, constipation. Her daughter did mention that she is having some abdominal spasming. She also stated that she has multiple wounds noted on her body from just being at the rehab. She also stated that she really did not want her to have any pain medications a
[2022-11-05 16:13] LABS: Glucose Point of Care 181 mg/dl (65-105)
[2022-11-05] MEDS: traMADol HCL (*CRX) 25 MG TABLET PO (17:01)
[2022-11-05 20:17] LABS: Glucose Point of Care 162 mg/dl (65-105)
[2022-11-05 21:02] VITALS: BP 135/54; PULSE 78; RESP 14; TEMP 36.3; O2SAT 94
[2022-11-05 21:42] VITALS: PULSE 75
[2022-11-05] MEDS: MELATONIN 5 MG TABLET PO (21:42)
[2022-11-05] MEDS: ESCITALOPRAM OXALATE 10 MG TABLET PO (21:42)
[2022-11-05] MEDS: ROSUVASTATIN 10 MG TABLET PO (21:42)
[2022-11-06] MEDS: ACETAMINOPHEN 500 MG TABLET 1000 MG PO ×2 (05:27→15:29)
[2022-11-06] MEDS: LEVOTHYROXINE SODIUM 75 MCG TABLET PO (05:29)
[2022-11-06 06:00] VITALS: BP 133/45; PULSE 68; RESP 12; TEMP 36.1; O2SAT 96
[2022-11-06 07:09] LABS: Basophils Absolute Auto 0.1 K/mm3 (0.0-0.1); Basophils Percent Auto 0.7 % (0.2-1.2); Eosinophils Absolute Auto 1.1 K/mm3 (0-0.3); Eosinophils Percent Auto 6.7 % (0-4.4); Hematocrit 34.6 % (37.0-47.0); Hemoglobin 10.7 g/dL (12.0-15.0); Immature Granulocyte Absolute 0.28 K/mm3 (0.00-0.031); Immature Granulocyte Percent A 1.8 % (0-0.5); Lymphocytes Absolute Auto 1.76 K/mm3 (0.9-3.2); Lymphocytes Percent Auto 11.2 % (18.3-44.2); Mean Corpuscular HGB Conc 30.9 g/dl (32-36); Mean Corpuscular Hemoglobin 23.2 pg (26-34); Mean Corpuscular Volume 75.1 fl (80-100); Mean Platelet Volume 10.1 fl (7.4-10.4); Monocytes Absolute Auto 2.8 K/mm3 (0.1-0.6); Monocytes Percent Auto 17.6 % (2.6-8.5); Neutrophils Absolute Auto 9.7 K/mm3 (1.3-6.7); Platelet Count Result 406 k/mm3 (150-375); Red Blood Count 4.61 M/mm3 (4.2-5.4); Red Cell Distribution Width 15.7 % (11.5-14.5); White Blood Count 15.7 K/mm3 (4.5-10.0)
[2022-11-06 07:20] LABS: Alanine Aminotransferase 14 U/L (6-35); Albumin Level 2.9 g/dL (3.5-5.1); Alkaline Phosphatase 79 U/L (38-126); Anion Gap 2 mmol/L (8-16); Aspartate Amino Transferase 16 U/L (14-36); Bilirubin,Total 0.3 mg/dL (0.2-1.3); Blood Urea Nitrogen 6 mg/dL (7-17); Calcium 9.8 mg/dL (8.4-10.2); Carbon Dioxide 23 mmol/L (22-30); Chloride 107 mmol/L (98-107); Estimated CRCL calculation 64 ml/min; Estimated Glomerular Filt Rate > 60; Glucose 131 mg/dL (65-110); Magnesium 2.1 mg/dL (1.6-2.3); Potassium 3.8 mmol/L (3.4-5.0); Sodium 132 mmol/L (137-145)
[2022-11-06 07:39] LABS: Glucose Point of Care 137 mg/dl (65-105)
[2022-11-06] MEDS: CEFEPIME 1 GM/NS 50 ML 1 GM/50 ML BAG IVPB (08:27)
[2022-11-06 08:28] VITALS: PULSE 72
[2022-11-06] MEDS: FLECAINIDE ACETATE 50 MG TABLET PO (08:28)
[2022-11-06] MEDS: busPIRone HCL 5 MG TABLET PO ×3 (08:28→16:34)
[2022-11-06] MEDS: APIXABAN 5 MG TABLET PO (08:29)
[2022-11-06] MEDS: PANTOPRAZOLE 40 MG TABLET PO (08:29)
[2022-11-06] MEDS: ANASTROZOLE (*CHEMO) 1 MG TABLET PO (08:29)
[2022-11-06] MEDS: DORZOLAMIDE HCL 2% OPHTH DROPS 2 DROP EACH EYE ×2 (08:30→12:21)
[2022-11-06] MEDS: INSULIN GLARGINE (*BKC) 100 UNITS/ML 12 UNITS SUB-Q (08:30)
[2022-11-06] MEDS: TOLNAFTATE 1% POWDER 45 GM BTL 1 APPLIC TOPICAL (08:32)
[2022-11-06 11:26] LABS: Glucose Point of Care 240 mg/dl (65-105)
--- NOTE | 2022-11-06 11:30 | P.DS_ITS ---
DS: Admitting Diagnosis Discharge Date 11/06/22 1130 Admitting Diagnosis pneumonia DS: Discharge Diagnosis Discharge Diagnosis (1) Hospital acquired PNA: Code(s): J18.9 - Pneumonia, unspecified organism; Y95 - Nosocomial condition Status: Acute Assessment and Plan: * CT of the chest showed upper lobe ground glass opacities, suspicious for PNA * Continue cefepime and vancomycin * Sputum culture if able * Urine antigens, and mycoplasma ordered * blood cultures pending * De-escalate as appropriate by culture results . * IS and PEP therapy (2) Atrial fibrillation: Qualifiers: Atrial fibrillation type: paroxysmal Qualified Code(s): I48.0 - Paroxysmal atrial fibrillation Code(s): I48.91 - Unspecified atrial fibrillation Status: Acute Assessment and Plan: * Stable * continue home medications * HR stable * Continue eliquis (3) Type 2 diabetes mellitus: Qualifiers: Diabetes mellitus complication status: without complication Diabetes mellitus termite renewal inspector insulin use: with termite renewal inspector use Qualified Code(s): E11.9 - Type 2 diabetes mellitus without complications; Z79.4 - 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 of insulin Code(s): E11.9 - Type 2 diabetes mellitus without complications Status: Acute Assessment and Plan: * Glucose 144 * A1c 7.7 * Lantus 12 unit Q12H * Insulin sliding scale * Accu cheks AC/HS * Trend glucose and adjust therapy as indicated (4) Decubitus ulcer of sacral area: Qualifiers: Pressure injury stage: unspecified pressure injury stage Qualified Code(s): L89.159 - Pressure ulcer of sacral region, unspecified stage Code(s): L89.159 - Pressure ulcer of sacral region, unspecified stage Status: Acute Assessment and Plan: * Wound care to see * Stable * Follow ordered wound care orders (5) Neurogenic bladder: Code(s): N31.9 - Neuromuscular dysfunction of bladder, unspecified Status: Acute Assessment and Plan: * Suprapubic catheter in place * trend urine output * stable * UA does not appear to be infectious (6) Acute metabolic encephalopathy: Code(s): G93.41 - Metabolic encephalopathy Status: Acute Assessment and Plan: * Seems to be baseline confused per the family * Head CT shows no acute intracranial abnormalities * Reorientate as indicated * Promote good sleep/wake cycle * add melatonin, and Seroquel * seems to better today (7) Status post total colectomy: Code(s): Z90.49 - Acquired absence of other specified parts of digestive tract Status: Acute Assessment and Plan: * S/P colectomy * Incision with staple present and appears stable * add Bentyl for abdominal spasms * Stable * Ostomy is stable draining brown stool Plan add tramadol for general pain DS: Summary Hospital Course Hospital Course: patient 81-year-old female with a past medical history of dementia, atrial fib, diabetes, hypothyroidism, breast cancer who presented to the ED with complaints of altered mental status. Patient was recently here for an abdominal surgery and does have a colostomy from a total colectomy along with a your ostomy tube. CT of the chest abdomen and pelvis did show ground-glass opacities suspicious fo
--- NOTE | 2022-11-06 11:30 | PM.DS ---
DS: Admitting Diagnosis Discharge Date 11/06/22 1130 Admitting Diagnosis pneumonia DS: Discharge Diagnosis Discharge Diagnosis (1) Hospital acquired PNA: Code(s): J18.9 - Pneumonia, unspecified organism; Y95 - Nosocomial condition Status: Acute Assessment and Plan: CT of the chest showed upper lobe ground glass opacities, suspicious for PNA Continue cefepime and vancomycin Sputum culture if able Urine antigens, and mycoplasma ordered blood cultures pending De-escalate as appropriate by culture results . IS and PEP therapy (2) Atrial fibrillation: Qualifiers: Atrial fibrillation type: paroxysmal Qualified Code(s): I48.0 - Paroxysmal atrial fibrillation Code(s): I48.91 - Unspecified atrial fibrillation Status: Acute Assessment and Plan: Stable continue home medications HR stable Continue eliquis (3) Type 2 diabetes mellitus: Qualifiers: Diabetes mellitus complication status: without complication Diabetes mellitus terminologist insulin use: with [facility] use Qualified Code(s): E11.9 - Type 2 diabetes mellitus without complications; Z79.4 - shelter (current) use of insulin Code(s): E11.9 - Type 2 diabetes mellitus without complications Status: Acute Assessment and Plan: Glucose 144 A1c 7.7 Lantus 12 unit Q12H Insulin sliding scale Accu cheks AC/HS Trend glucose and adjust therapy as indicated (4) Decubitus ulcer of sacral area: Qualifiers: Pressure injury stage: unspecified pressure injury stage Qualified Code(s): L89.159 - Pressure ulcer of sacral region, unspecified stage Code(s): L89.159 - Pressure ulcer of sacral region, unspecified stage Status: Acute Assessment and Plan: Wound care to see Stable Follow ordered wound care orders (5) Neurogenic bladder: Code(s): N31.9 - Neuromuscular dysfunction of bladder, unspecified Status: Acute Assessment and Plan: Suprapubic catheter in place trend urine output stable UA does not appear to be infectious (6) Acute metabolic encephalopathy: Code(s): G93.41 - Metabolic encephalopathy Status: Acute Assessment and Plan: Seems to be baseline confused per the family Head CT shows no acute intracranial abnormalities Reorientate as indicated Promote good sleep/wake cycle add melatonin, and Seroquel seems to better today (7) Status post total colectomy: Code(s): Z90.49 - Acquired absence of other specified parts of digestive tract Status: Acute Assessment and Plan: S/P colectomy Incision with staple present and appears stable add Bentyl for abdominal spasms Stable Ostomy is stable draining brown stool Plan add tramadol for general pain DS: Summary Hospital Course Hospital Course: patient 81-year-old female with a past medical history of dementia, atrial fib, diabetes, hypothyroidism, breast cancer who presented to the ED with complaints of altered mental status. Patient was recently here for an abdominal surgery and does have a colostomy from a total colectomy along with a your ostomy tube. CT of the chest abdomen and pelvis did show ground-glass opacities suspicious for pneumonia. Patient was started on IV cefepime and vancomycin. White count was slightly elevated upon arrival and is currently 15.7. Patient does appear to be feeling better. Family also stated that they feel the patient is back at her baseline. She does have pain in the back and neck however it is chronic pain at this point. PC did work with the patient and sat the patient's side the bed. She is currently feeding herself and is eating currently. Abdomen looks good with lynette. There is a decubitus ulcer which does appear to be stable. Urine is draining yellow and clear appears to be doing well
[2022-11-06 11:32] VITALS: BMI 11.0
--- NOTE | 2022-11-06 13:39 | PCPTNOTE ---
On 11/06/22, the student, [Mariajose Chapa], provided care and completed [facility] documentation on this patient. I have reviewed the student's documentation and agree with the findings.
[2022-11-06 13:46] VITALS: BP 152/55; PULSE 70; RESP 16; TEMP 35.9; O2SAT 96
--- NOTE | 2022-11-06 15:19 | PCCCNOTE ---
digital account coordinator assisting sales recruiting coordinator, phone call received from floor that [facility] is working on dc and they will need a packet. Called to [facility]ourt[facility] barclay spoke with Aleta, she requested updates to be faxed. Patient will need a Covid test, nurse report [phone], . Called to patient's Thiago and he requests that this health care coach call Ange, Called to Ange. She agrees with discharge and transportation by ambulance.
[2022-11-06 15:46] LABS: EDCOVIDSCREEN Negative (Negative)
[2022-11-06 16:23] LABS: Glucose Point of Care 191 mg/dl (65-105)
== END 2022-11-06 17:00 | DRG 193 ==
LOC: ANHED 18:19 → ANH3MEDSUR 19:24
PROVIDERS: Admitting Provider Internal Medicine; Emergency Provider Physician Assistant; PCP Family Medicine; Visit Provider Nurse Practitioner
DX: J18.9 Pneumonia, unspecified organism (principal); G93.41 Metabolic encephalopathy; L89.153 Pressure ulcer of sacral region, stage 3; G11.4 Hereditary spastic paraplegia; Y95 Nosocomial condition; Z20.822 Contact with and (suspected) exposure to COVID-19; I48.0 Paroxysmal atrial fibrillation; E11.9 Type 2 diabetes mellitus without complications; N31.9 Neuromuscular dysfunction of bladder, unspecified; E03.9 Hypothyroidism, unspecified; I25.10 Atherosclerotic heart disease of native coronary artery without angina pectoris; K21.9 Gastro-esophageal reflux disease without esophagitis; H40.9 Unspecified glaucoma; G35 Multiple sclerosis; G47.33 Obstructive sleep apnea (adult) (pediatric); Z90.49 Acquired absence of other specified parts of digestive tract; Z85.3 Personal history of malignant neoplasm of breast; Z79.01 Long term (current) use of anticoagulants; Z79.4 Long term (current) use of insulin; Z86.711 Personal history of pulmonary embolism; Z86.73 Personal history of transient ischemic attack (TIA), and cerebral infarction without residual deficits; Z90.710 Acquired absence of both cervix and uterus
CPT/HCPCS: 36415; 70450; 71260; 74177; 80053; 80202; 81001; 82565; 82948; 83605; 83690; 83735; 85025; 85610; 85730; 86140; 87040; 87081; 87086; 87088; 87426; 93005; 96361; 96365; 96375; 97161; 97165; 99285; A9270; C9803; G0378; G0379; J0456; J0692; J1815; J3370; J7030; Q9967

== ENCOUNTER 2022-11-17 14:10 | Emergency (ER) | payer MEDICARE, MEDICAID, SELFPAY ==
[2022-11-17] VITALS (25 sets, daily range): BP systolic 132–155; BP diastolic 60–70; PULSE 65–83; RESP 13–19; TEMP 36.8; O2SAT 93–100
--- NOTE | ~2022-11-17 | CT_ITS ---
EXAMINATION: CT brain wo con DATE: 11/17/2022 16:57 INDICATION: Gait. Altered mental status. TECHNIQUE: Computed tomography (CT) of the head was performed without intravenous contrast. Sagittal and coronal reconstructions were performed. The mA was adjusted according to patient size. Iterative reconstruction technique was employed. The dose-length product was 605.33 mGy-cm. COMPARISON: head CT dated 11/03/2022 FINDINGS: No acute intracranial hemorrhage, acute infarction or abnormal extra axial fluid collection. There is moderate scattered white matter hypoattenuation consistent with chronic small vessel ischemic diseas e. Symmetric prominence of the sulci and ventricles consistent with mild to moderate age-appropriate diffuse cerebral volume loss. No mass/mass effect. Changes of right intraocular lens replacement. The orbits and mastoid air cells are normal. Bubbly mucus in the bilateral sphenoid sinuses. Intracrania l calcified cerebral atherosclerosis is noted. IMPRESSION: 1. No acute intracranial process. 2. Stable appearance of chronic age-related changes including moderate diffuse volume loss and modera te scattered white matter hypoattenuation consistent with chronic small vessel ischemic disease. 3. Bubbly mucus in the bilateral sphenoid sinuses which can be seen with acute sinusitis. Reviewed, dictated and finalized at location A. IMPRESSION: 1. No acute intracranial process. 2. Stable appearance of chronic age-related changes including moderate diffuse volume loss and moderate scattered white matter hypoattenuation consistent with chronic small vessel ischemic disease. 3. Bubbly mucus in the bilateral sphenoid sinuses which can be seen with acute sinusitis.
--- NOTE | ~2022-11-17 | CT_ITS ---
EXAMINATION: CT chest abdomen pelvis w con DATE: 11/17/2022 16:57 INDICATION: Mental status. Epigastric pain. TECHNIQUE: Computed tomography (CT) of the chest, abdomen, and pelvis was performed with 100 mL Omnip aque-350 intravenous contrast. Automated exposure control and iterative reconstruction technique were employed. The dose-length product was 1047.71 mGy-cm. COMPARISON: CT dated 11/03/2022 FINDINGS: CHEST CT: Small calcified nodules in the right upper lobe along with calcified right hilar and mediastinal lymp h nodes consistent with old granulomatous disease. No suspicious pulmonary nodules, pneumonia, pulmon fozia edema or pleural effusion. Heart size is normal. Atherosclerotic coronary artery calcification. A ortic valve and mitral annular calcific location. No pericardial or pleural effusion. Thoracic aorta is normal caliber with no dissection. No pathologically enlarged thoracic lymphadenopathy. Bilateral subcentimeter thyroid nodules. Mild thoracic dextrocurvature with bridging osteophytes at multiple le vels consistent with diffuse idiopathic skeletal hyperostosis (DISH). ABDOMEN/PELVIS CT: Cholecystectomy clips the gallbladder fossa. Liver, spleen, pancreas, bilateral adrenal glands and ki dneys are normal. 2 cm gas-filled duodenal diverticulum posterior to the head of the pancreas. Postop erative change of recent subtotal colectomy with suture line along the end of a Vital's pouch in th e pelvis and with right lower quadrant and ileostomy. Couple of nonobstructed small bowel extends int o the orifice of a small fat-containing right inguinal hernia. No bowel obstruction. Suprapubic lakesha ter within the bladder. The uterus is not identified and has likely been surgically resected. Thin rim of enhancement at a 0.8 cm cystic lesion along the margin of the Vital's pouch which could repr esent an adnexal cyst or small hematoma or abscess. Small fat-containing ventral hernia. No pathologi esau enlarged abdominal or pelvic lymphadenopathy. There is calcified atherosclerosis of the aorta a nd many of the other arteries. Lumbar levoscoliosis with moderate to severe spondylosis. IMPRESSION: 1. No acute cardiopulmonary disease. 2. Status post recent subtotal colectomy with Vital's pouch and right lower quadrant ileocolic anas tomosis. 1.8 cm cystic lesion along the suture line of the Vital's pouch which could represent a sm all hematoma/seroma, abscess or adnexal cyst. Reviewed, dictated and finalized at location A. IMPRESSION: 1. No acute cardiopulmonary disease. 2. Status post recent subtotal colectomy with Vital's pouch and right lower q uadrant ileocolic anastomosis. 1.8 cm cystic lesion along the suture line of th e Vital's pouch which could represent a small hematoma/seroma, abscess or adn exal cyst.
--- NOTE | 2022-11-17 15:00 | ECG_ITS ---
Measurements Intervals [place] Rate: 70 P: 49 [place]: 165 QRS: -41 QRSD: 106 T: 51 QT: 402 QTc: 435 Interpretive Statements SINUS RHYTHM VENTRICULAR PREMATURE COMPLEX LEFT AXIS DEVIATION BASELINE ARTIFACT- I, III, AVR, V6 BORDERLINE ECG COMPARED TO ECG 11/03/2022 17:07:19 NO SIGNIFICANT CHANGES Electronically Signed On 11-17-2022 21:27:26 CDT by Emmanuel Tamez D.O.
--- NOTE | 2022-11-17 15:19 | PC.NURSE ---
Pt's states that pt was c/o chest pain for a short time about 15 minutes prior. At this time pt denies any pain.
--- NOTE | 2022-11-17 15:43 | ED.AMS ---
HPI - Altered Mental Status General Chief Complaint: Altered Mental Status Stated Complaint: increased confusion Time Seen by Provider: 11/17/22 14:32 History of Present Illness HPI narrative: Patient is an 81-year-old female presenting with a possible increase in her confusion. Her is at bedside to assist with the history. He states neither of them really know why she is here. States that her daughters wanted her to come in. He states that she complains of a chronic posterior headache as well as intermittent abdominal pain. She has been hospitalized multiple times here and recently had a subtotal colectomy with ileostomy creation. Patient states that her abdominal pain has not changed. Currently, patient complains of pain in the back of her head. Her states that she is A&O x2 at baseline. Related Data Home Medications Medication Instructions Recorded Confirmed anastrozole 1 mg tablet 1 mg PO DAILY 03/11/22 11/13/22 apixaban 5 mg tablet (Eliquis) 5 mg PO BID 03/11/22 11/13/22 bromfenac 0.07 % eye drops 1 drp RIGHT EYE DAILY 03/11/22 11/13/22 (Prolensa) cranberry extract 425 mg capsule 425 mg PO 1200 03/11/22 11/13/22 dorzolamide 2 % eye drops 2 drp EACH EYE TID 03/11/22 11/13/22 esomeprazole magnesium 40 mg 40 mg PO DAILY 03/11/22 11/13/22 capsule,delayed release flecainide 50 mg tablet 50 mg PO BID 03/11/22 11/13/22 insulin glargine 100 unit/mL (3 12 unit subcut HS 03/11/22 11/13/22 mL) subcutaneous pen (Lantus Solostar U-100 Insulin) levothyroxine 75 mcg tablet 75 mcg PO DAILY 03/11/22 11/13/22 nitroglycerin 0.4 mg sublingual 0.4 mg sublingual PRN PRN Chest 03/11/22 11/13/22 tablet Pain rosuvastatin 10 mg tablet 10 mg PO HS 03/11/22 11/13/22 sitagliptin phosphate 100 mg 100 mg PO DAILY 03/11/22 11/13/22 tablet (Januvia) spironolactone 25 mg tablet 25 mg PO DAILY 03/11/22 11/13/22 buspirone 5 mg tablet 5 mg PO TID 08/11/22 11/13/22 insulin glargine 100 unit/mL (3 12 unit subcut QAM 08/11/22 11/13/22 mL) subcutaneous pen (Lantus Solostar U-100 Insulin) ipratropium 0.5 mg-albuterol 3 mg 3 ml inhalation QID PRN Shortness 08/11/22 11/13/22 (2.5 mg base)/3 mL nebulization Of Breath Or Wheezing soln levothyroxine 75 mcg tablet 150 mcg PO DAILY 08/11/22 11/13/22 arginine-vitamin C-vitamin E oral 9.2 g PO BID 10/28/22 11/13/22 4.5 gram-156 mg/9.2 gram powder pkt (Arginaid) escitalopram oxalate 10 mg tablet 10 mg PO QHS 10/28/22 11/13/22 acetaminophen 500 mg capsule 1,000 mg PO Q6H PRN pain 11/03/22 11/13/22 bromfenac 0.09 % eye drops 1 drp RIGHT EYE HS 11/03/22 11/13/22 Allergies Allergy/AdvReac Type Severity Reaction Status Date / Time black pepper Allergy Unknown Verified 11/11/22 14:16 diltiazem Allergy Unknown Verified 11/11/22 14:16 donepezil Allergy Unknown Verified 11/11/22 14:16 fluticasone Allergy Unknown Verified 11/11/22 14:16 metformin Allergy Unknown Verified 11/11/22 14:16 Review of Systems Review of Systems: ROS unobtainable: Yes unobtainable due to medical condition, unobtainable due to mental status and other PMFSH Past Medical History Medical History Atherosclerotic heart disease Atrial fibrillation Breast cancer Chronic idiopathic constipation Congestive heart failure Familial spastic paraplegia GERD (gastroesophageal reflux disease) Glaucoma Hereditary spastic paraplegia History of pulmonary embolism Hyperparathyroidism Hypertension Hypothyroidism Multiple sclerosis Neurogenic bladder CATY (obstructive sleep apnea) uncompliant with CPAP TIA (transient ischemic attack) Type 2 diabetes mellitus Surgical History Surgical History Chronic suprapubic catheter H/O: hysterectomy S/P colectomy subtotal colectomy with end ileostomy 10/27/22 Family History Family History Father Spa
[2022-11-17 15:54] LABS: Basophils Absolute Auto 0.2 K/mm3 (0.0-0.1); Basophils Percent Auto 0.9 % (0.2-1.2); Eosinophils Absolute Auto 0.5 K/mm3 (0-0.3); Eosinophils Percent Auto 3.2 % (0-4.4); Hematocrit 39.1 % (37.0-47.0); Hemoglobin 12.3 g/dL (12.0-15.0); Immature Granulocyte Absolute 0.12 K/mm3 (0.00-0.031); Immature Granulocyte Percent A 0.7 % (0-0.5); Lymphocytes Percent Auto 12.5 % (18.3-44.2); Mean Corpuscular HGB Conc 31.5 g/dl (32-36); Mean Corpuscular Volume 73.2 fl (80-100); Mean Platelet Volume 10.6 fl (7.4-10.4); Monocytes Absolute Auto 2.6 K/mm3 (0.1-0.6); Monocytes Percent Auto 16.5 % (2.6-8.5); Neutrophils Absolute Auto 10.6 K/mm3 (1.3-6.7); Neutrophils Percent Auto 66.2 % (45.5-73.1); Platelet Count Result 539 k/mm3 (150-375); Red Blood Count 5.34 M/mm3 (4.2-5.4); Red Cell Distribution Width 15.4 % (11.5-14.5)
[2022-11-17 16:03] LABS: Alanine Aminotransferase 21 U/L (6-35); Albumin Level 4.1 g/dL (3.5-5.1); Alkaline Phosphatase 98 U/L (38-126); Anion Gap 6 mmol/L (8-16); Aspartate Amino Transferase 22 U/L (14-36); Bilirubin,Total 0.4 mg/dL (0.2-1.3); Blood Urea Nitrogen 20 mg/dL (7-17); Calcium 11.2 mg/dL (8.4-10.2); Carbon Dioxide 24 mmol/L (22-30); Chloride 105 mmol/L (98-107); Estimated CRCL calculation 66 ml/min; Estimated Glomerular Filt Rate > 60; Glucose 144 mg/dL (65-110); Lipase 221 U/L (23-300); Magnesium 1.9 mg/dL (1.6-2.3); Potassium 3.8 mmol/L (3.4-5.0); Sodium 135 mmol/L (137-145)
[2022-11-17 16:04] LABS: INR 1.2; Lactic Acid Reflex 1.2 mmol/L (0.7-2.0); Partial Thromboplastin Time 27.8 SECONDS (22.3-36.8); Prothrombin Time 16.1 Seconds (11.1-14.7)
[2022-11-17 16:15] LABS: Troponin I < 0.012 ng/mL (0.000-0.034)
[2022-11-17 16:22] LABS: Platelet Estimate Increased (Adequate)
[2022-11-17 16:23] LABS: Hypochromasia 1+ (NORMAL); Schistocytes None Seen (NORMAL)
[2022-11-17 16:24] LABS: Anisocytosis 2+ (NORMAL)
[2022-11-17] MEDS: SODIUM CHLORIDE 0.9% IV 1,000 ML 999 ML IV CONT (17:23)
[2022-11-17 18:29] LABS: Appearance Urine Turbid (Clear); Bacteria Urine 4+ /hpf; Bilirubin Urine Negative (Negative); Blood Urine Trace (Negative); Budding Yeast Urine Present /hpf; Color Urine Yellow (Yellow); Glucose Urine UA Negative (Negative); Ketones Urine Negative (Negative); Leukocyte Esterase Ur 3+ LEU/UL (Negative); Nitrate Urine Positive (Negative); Protein Urine Trace mg/dL (Negative); RBC Urine >100 /hpf (0-2); Squamous Epithelial Cell Urine None seen /hpf (Few); Urobilinogen Urine 0.2 mg/dL (<2.0); WBC Urine >100 /hpf; pH Urine 6.5 (5.0-9.0)
[2022-11-17 18:31] LABS: Add Urine Microscopic? YES
--- NOTE | 2022-11-17 19:15 | PC.NURSE ---
Report received from DES Garcia. Assumed care of patient at this time.
[2022-11-17 19:23] LABS: Troponin I < 0.012 ng/mL (0.000-0.034)
== END 2022-11-17 20:40 ==
PROVIDERS: Emergency Provider Emergency Medicine; PCP Family Medicine
DX: N39.0 Urinary tract infection, site not specified (principal); R41.82 Altered mental status, unspecified; I48.91 Unspecified atrial fibrillation; I25.10 Atherosclerotic heart disease of native coronary artery without angina pectoris; I50.9 Heart failure, unspecified; I11.0 Hypertensive heart disease with heart failure; E11.39 Type 2 diabetes mellitus with other diabetic ophthalmic complication; H42 Glaucoma in diseases classified elsewhere; G35 Multiple sclerosis; G47.33 Obstructive sleep apnea (adult) (pediatric); E03.9 Hypothyroidism, unspecified; E21.3 Hyperparathyroidism, unspecified; G11.4 Hereditary spastic paraplegia; K21.9 Gastro-esophageal reflux disease without esophagitis; Z93.59 Other cystostomy status; Z93.2 Ileostomy status; Z85.3 Personal history of malignant neoplasm of breast; Z86.73 Personal history of transient ischemic attack (TIA), and cerebral infarction without residual deficits; Z86.711 Personal history of pulmonary embolism; Z90.49 Acquired absence of other specified parts of digestive tract; Z79.01 Long term (current) use of anticoagulants; Z79.4 Long term (current) use of insulin; I49.3 Ventricular premature depolarization; R93.3 Abnormal findings on diagnostic imaging of other parts of digestive tract
CPT/HCPCS: 36415; 70450; 71260; 74177; 80053; 81001; 83605; 83690; 83735; 84484; 85025; 85610; 85730; 87077; 87086; 87186; 93005; 96361; 96365; 99284; J0696; J7030; Q9967

== ENCOUNTER 2022-12-12 21:02 | Inpatient (IN) | payer MEDICARE, MEDICAID, SELFPAY ==
--- NOTE | ~2022-12-12 | CT_ITS ---
CT of the Abdomen and Pelvis: Indication: Abdominal pain Technique: 2.5 mm axial scans were obtained through the abdomen and pelvis following intravenous adm inistration of 100 cc of Omnipaque 350. Dose reduction technique was used on this scan by utilizing a utomated exposure control and iterative reconstruction technique. The dose-length product (DLP) was 1 006.68 mGy-cm. COMPARISON: 11/17/2022 Findings: Scans through the lung bases demonstrate cardiomegaly. The liver, spleen, pancreas, adrenals and kidneys are within normal limits. Cholecystectomy clips are present. There are atherosclerotic calcifications of the aorta. No lymphadenopathy. There is apparent ileostomy, with presumed prior extensive colectomy, and ileocolic anastomosis. No b owel obstruction evident. There is focal prominent stool at the rectum. Images through the pelvis were performed. Suprapubic catheter is in place. There is diffuse urinary b ladder wall thickening. No adnexal mass. No ascites. Impression: Cystitis with suprapubic catheter in place. Focally prominent stool at the rectum. Evidence of prior bowel surgery, as above. Correlate with surg ical history. Reviewed, dictated and finalized at location . Impression: Cystitis with suprapubic catheter in place. Focally prominent stool at the rectum. Evidence of prior bowel surgery, as abov e. Correlate with surgical history.
--- NOTE | ~2022-12-12 | XR_ITS ---
Portable chest x-ray Comparison: 11/04/2022 Clinical History: Chest pain Findings: Lungs are clear, without focal consolidation or pleural effusion. Stable calcified right h ilar/right paratracheal lymph nodes. Cardiomediastinal silhouette is stable. Bones and soft tissues are unremarkable. Impression: Clear lungs. Stable calcified lymph nodes, as above. Reviewed, dictated and finalized at location . Impression: Clear lungs. Stable calcified lymph nodes, as above.
[2022-12-12 20:59] VITALS: BP 138/61; PULSE 93; RESP 21; TEMP 36.1; O2SAT 95
--- NOTE | 2022-12-12 22:31 | ECG_ITS ---
Measurements Intervals [place] Rate: 88 P: 57 [place]: 172 QRS: -15 QRSD: 110 T: 21 QT: 350 QTc: 424 Interpretive Statements SINUS RHYTHM INTRAVENTRICULAR CONDUCTION DELAY POOR R WAVE PROGRESSION, ANTERIOR LEADS MINIMAL Q WAVES- HIGH LATERAL LEADS BORDERLINE ECG COMPARED TO ECG 11/17/2022 15:16:59 NO SIGNIFICANT CHANGES Electronically Signed On 12-13-2022 7:41:53 CDT by Emmanuel Tamez D.O.
[2022-12-12 22:40] VITALS: BP 153/72; PULSE 88; RESP 23; O2SAT 95
[2022-12-12] MEDS: ONDANSETRON INJ 4 MG/2 ML VIAL IV PUSH (22:43)
[2022-12-12] MEDS: SODIUM CHLORIDE 0.9% IV 1,000 ML 999 ML IV CONT (22:43)
[2022-12-12 23:00] LABS: Basophils Absolute Auto 0.1 K/mm3 (0.0-0.1); Basophils Percent Auto 0.4 % (0.2-1.2); Eosinophils Absolute Auto 0.3 K/mm3 (0-0.3); Eosinophils Percent Auto 0.7 % (0-4.4); Hematocrit 43.2 % (37.0-47.0); Hemoglobin 13.6 g/dL (12.0-15.0); Immature Granulocyte Absolute 0.79 K/mm3 (0.00-0.031); Immature Granulocyte Percent A 2.2 % (0-0.5); Lymphocytes Absolute Auto 2.33 K/mm3 (0.9-3.2); Lymphocytes Percent Auto 6.3 % (18.3-44.2); Mean Corpuscular HGB Conc 31.5 g/dl (32-36); Mean Corpuscular Hemoglobin 22.4 pg (26-34); Mean Corpuscular Volume 71.1 fl (80-100); Mean Platelet Volume 10.2 fl (7.4-10.4); Monocytes Absolute Auto 5.1 K/mm3 (0.1-0.6); Neutrophils Absolute Auto 28.1 K/mm3 (1.3-6.7); Neutrophils Percent Auto 76.4 % (45.5-73.1); Platelet Count Result 474 k/mm3 (150-375); Red Blood Count 6.08 M/mm3 (4.2-5.4); Red Cell Distribution Width 18.1 % (11.5-14.5); White Blood Count 36.7 K/mm3 (4.5-10.0)
[2022-12-12 23:11] LABS: INR 1.1; Prothrombin Time 14.3 Seconds (11.1-14.7)
[2022-12-12 23:12] LABS: Partial Thromboplastin Time 23.2 SECONDS (22.3-36.8)
[2022-12-12 23:12] LABS: Alanine Aminotransferase 35 U/L (6-35); Albumin Level 4.2 g/dL (3.5-5.1); Alkaline Phosphatase 126 U/L (38-126); Anion Gap 14 mmol/L (8-16); Aspartate Amino Transferase 21 U/L (14-36); Bilirubin,Total 0.3 mg/dL (0.2-1.3); Blood Urea Nitrogen 37 mg/dL (7-17); Calcium 12.1 mg/dL (8.4-10.2); Carbon Dioxide 10 mmol/L (22-30); Chloride 109 mmol/L (98-107); Estimated CRCL calculation 69 ml/min; Estimated Glomerular Filt Rate > 60; Glucose 258 mg/dL (65-110); Lipase 279 U/L (23-300); Potassium 4.3 mmol/L (3.4-5.0); Sodium 133 mmol/L (137-145)
[2022-12-12 23:12] LABS: Magnesium 2.1 mg/dL (1.6-2.3)
[2022-12-12 23:13] LABS: Lactic Acid Reflex 1.5 mmol/L (0.7-2.0)
[2022-12-12 23:24] LABS: NT Pro B Type Natriuretic Pept 446 pg/mL (19.9-100); Troponin I < 0.012 ng/mL (0.000-0.034)
[2022-12-12 23:25] LABS: Schistocytes None Seen (NORMAL)
[2022-12-12 23:26] LABS: Anisocytosis 1+ (NORMAL); Platelet Estimate Adequate (Adequate); Poikilocytosis 1+ (NORMAL)
[2022-12-12 23:33] LABS: Appearance Urine Turbid (Clear); Bacteria Urine 4+ /hpf; Bilirubin Urine Negative (Negative); Blood Urine 1+ (Negative); Budding Yeast Urine Present /hpf; Color Urine Yellow (Yellow); Glucose Urine UA Negative (Negative); Ketones Urine Negative (Negative); Leukocyte Esterase Ur 3+ LEU/UL (Negative); Nitrate Urine Positive (Negative); Non Pathogenic Casts >20; Protein Urine 2+ mg/dL (Negative); Specific Grav Ur 1.016 (1.001-1.035); Squamous Epithelial Cell Urine None seen /hpf (Few); Urobilinogen Urine 0.2 mg/dL (<2.0); WBC Urine >100 /hpf; pH Urine 7.5 (5.0-9.0)
[2022-12-12 23:35] LABS: Add Urine Microscopic? YES
[2022-12-13] VITALS (9 sets, daily range): BP systolic 138–163; BP diastolic 52–69; PULSE 64–97; RESP 18–20; TEMP 36.3–36.8; O2SAT 95–99; BMI 25.9
--- NOTE | 2022-12-13 00:35 | ED.GENADULT ---
HPI - General Adult General Chief complaint: Abdominal Pain Stated complaint: abd pain Time Seen by Provider: 12/12/22 22:15 History of Present Illness HPI narrative: Patient 82-year-old female who presents emergency department with chief complaint of abdominal discomfort. 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 Related Data Home Medications Medication Instructions Recorded Confirmed anastrozole 1 mg tablet 1 mg PO DAILY 03/11/22 12/10/22 apixaban 5 mg tablet (Eliquis) 5 mg PO BID 03/11/22 12/10/22 bromfenac 0.07 % eye drops 1 drp RIGHT EYE DAILY 03/11/22 12/10/22 (Prolensa) cranberry extract 425 mg capsule 425 mg PO 1200 03/11/22 12/10/22 dorzolamide 2 % eye drops 2 drp EACH EYE TID 03/11/22 12/10/22 esomeprazole magnesium 40 mg 40 mg PO DAILY 03/11/22 12/10/22 capsule,delayed release flecainide 50 mg tablet 50 mg PO BID 03/11/22 12/10/22 insulin glargine 100 unit/mL (3 12 unit subcut HS 03/11/22 12/10/22 mL) subcutaneous pen (Lantus Solostar U-100 Insulin) levothyroxine 75 mcg tablet 75 mcg PO DAILY 03/11/22 12/10/22 nitroglycerin 0.4 mg sublingual 0.4 mg sublingual PRN PRN Chest 03/11/22 12/10/22 tablet Pain rosuvastatin 10 mg tablet 10 mg PO HS 03/11/22 12/10/22 spironolactone 25 mg tablet 25 mg PO DAILY 03/11/22 12/10/22 buspirone 5 mg tablet 5 mg PO TID 08/11/22 12/10/22 insulin glargine 100 unit/mL (3 12 unit subcut QAM 08/11/22 12/10/22 mL) subcutaneous pen (Lantus Solostar U-100 Insulin) levothyroxine 75 mcg tablet 150 mcg PO DAILY 08/11/22 12/10/22 arginine-vitamin C-vitamin E oral 9.2 g PO BID 10/28/22 12/10/22 4.5 gram-156 mg/9.2 gram powder pkt (Arginaid) escitalopram oxalate 10 mg tablet 10 mg PO QHS 10/28/22 12/10/22 acetaminophen 500 mg capsule 1,000 mg PO Q6H PRN pain 11/03/22 12/10/22 bromfenac 0.09 % eye drops 1 drp RIGHT EYE HS 11/03/22 12/10/22 Allergies Allergy/AdvReac Type Severity Reaction Status Date / Time black pepper Allergy Unknown Verified 12/09/22 13:28 diltiazem Allergy Unknown Verified 12/09/22 13:28 donepezil Allergy Unknown Verified 12/09/22 13:28 fluticasone Allergy Unknown Verified 12/09/22 13:28 metformin Allergy Unknown Verified 12/09/22 13:28 Review of Systems Review of Systems: A 10 system review of systems was completed on the patient and is negative except for what is stated in the HPI. Nursing and ancillary documentation was reviewed. [facility] Past Medical History Medical History Atherosclerotic heart disease Atrial fibrillation Breast cancer Chronic idiopathic constipation Congestive heart failure Familial spastic paraplegia GERD (gastroesophageal reflux disease) Glaucoma Hereditary spastic paraplegia History of pulmonary embolism Hyperparathyroidism Hypertension Hypothyroidism Multiple sclerosis Neurogenic bladder CATY (obstructive sleep apnea) uncompliant with CPAP TIA (transient ischemic attack) Type 2 diabetes mellitus Surgical History Surgical History Chronic suprapubic catheter H/O: hysterectomy S/P colectomy subtotal colectomy with end ileostomy 10/27/22 Family History Family History Father Spastic paralysis Mother Breast cancer Social History Social History Social History: Resides at [facility]. She has 3 daughters. 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 Code status full code Smoking status: Never smoker
--- NOTE | 2022-12-13 01:40 | PM.IMHP ---
H&P: HPI History of Present Illness Date/Time: 12/13/22 01:40 Chief Complaint: Abdominal pain Narrative: This is an 82-year-old female with past medical history significant for insulin-dependent diabetes mellitus, hypothyroidism, dyslipidemia, status post partial colectomy and colostomy placement, chronic indwelling suprapubic catheter, familial hereditary spastic paraplegia, neurogenic bladder, living at a alf comes back to the hospital due to low ostomy output. Patient is unable to give much history her complain S abdominal pain in the left lower quadrant. Preliminary workup was significant for leukocyte count of 36,000, CT of abdomen and pelvis was reported as: CT of the Abdomen and Pelvis: Indication: Abdominal pain Technique:? 2.5 mm axial scans were obtained through the abdomen and pelvis following intravenous administration of 100 cc of Omnipaque 350. Dose reduction technique was used on this scan by utilizing automated exposure control and iterative reconstruction technique. The dose-length product (DLP) was 1006.68 mGy-cm. COMPARISON: 11/17/2022 Findings:? Scans through the lung bases demonstrate cardiomegaly. The liver, spleen, pancreas, adrenals and kidneys are within normal limits. Cholecystectomy clips are present. There are atherosclerotic calcifications of the aorta.? No lymphadenopathy. There is apparent ileostomy, with presumed prior extensive colectomy, and ileocolic anastomosis. No bowel obstruction evident. There is focal prominent stool at the rectum. Images through the pelvis were performed. Suprapubic catheter is in place. There is diffuse urinary bladder wall thickening. No adnexal mass. No ascites. Impression: Cystitis with suprapubic catheter in place. Focally prominent stool at the rectum. Evidence of prior bowel surgery, as above. Correlate with surgical history. Portable chest x-ray Comparison: 11/04/2022 Clinical History: Chest pain Findings:? Lungs are clear, without focal consolidation or pleural effusion. Stable calcified right hilar/right paratracheal lymph nodes.? Cardiomediastinal silhouette is stable. Bones and soft tissues are unremarkable. ? Impression: ? Clear lungs. Stable calcified lymph nodes, as above. Review of Systems Review of Systems: ROS unobtainable: Yes unobtainable due to mental status PMFSH Past Medical History Medical History Atherosclerotic heart disease Atrial fibrillation Breast cancer Chronic idiopathic constipation Congestive heart failure Familial spastic paraplegia GERD (gastroesophageal reflux disease) Glaucoma Hereditary spastic paraplegia History of pulmonary embolism Hyperparathyroidism Hypertension Hypothyroidism Multiple sclerosis Neurogenic bladder CATY (obstructive sleep apnea) uncompliant with CPAP TIA (transient ischemic attack) Type 2 diabetes mellitus UTI (urinary tract infection) Surgical History Surgical History Chronic suprapubic catheter H/O: hysterectomy S/P colectomy subtotal colectomy with end ileostomy 10/27/22 Family History Family History Father Spastic paralysis Mother Breast cancer Social History Social History Social History: Resides at [facility]. She has 3 daughters. 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 Code status full code Smoking status: Never smoker Second hand tobacco smoke exposure: No Alcohol intake: never Substance use: never Substance use type: does not use Living arrangements: alf Additional living arrangements comments: [facility] Spiritual care concerns: No Meds Home Medications and Allergies Home Medications Medication Instructions Recorded Confirmed Type anastrozole 1 mg tablet 1 mg PO DAILY 10
[2022-12-13] MEDS: PIPERACILLN/TAZ 3.375GM/NS50ML 3.375 GM/50 ML BAG IVPB ×4 (01:50→20:23)
--- NOTE | 2022-12-13 02:55 | PC.NURSE ---
updated [facility] on pt. status.
[2022-12-13 03:55] LABS: Troponin I < 0.012 ng/mL (0.000-0.034)
--- NOTE | 2022-12-13 04:27 | ADMGEN ---
This patient, Perla Leon, was admitted to Medical Room 342-01. Patient/family oriented to hospital policies and general routines including ID bracelet, bed and alarms, visiting hours, pain management, procedures, bathroom and other care routines, personal items, smoking policy, room service/diet, and visiting hours. Information on how to activate the Rapid Response Team has been discussed. Patient/Family are encouraged to report perceived risks to care and to ask questions if they do not understand what they are told or what they should do.
[2022-12-13] MEDS: SODIUM CHLORIDE 0.9% IV 1,000 ML 125 ML IV CONT ×2 (06:06→14:14)
[2022-12-13] MEDS: LEVOTHYROXINE SODIUM 75 MCG TABLET PO (06:11)
[2022-12-13] MEDS: FLECAINIDE ACETATE 50 MG TABLET PO ×2 (08:54→20:26)
[2022-12-13] MEDS: SPIRONOLACTONE 25 MG TABLET PO (08:54)
[2022-12-13] MEDS: ANASTROZOLE (*CHEMO) 1 MG TABLET PO (08:55)
[2022-12-13] MEDS: POTASSIUM CHLORIDE 20 MEQ ER TABLET PO ×2 (08:55→17:53)
[2022-12-13] MEDS: DORZOLAMIDE HCL 2% OPHTH DROPS 2 DROP EACH EYE ×3 (08:56→17:32)
[2022-12-13] MEDS: APIXABAN 5 MG TABLET BY MOUTH ×2 (09:03→20:26)
[2022-12-13] MEDS: oxyBUTYnin CHLORIDE XL 5 MG TAB.ER.24 PO ×2 (09:03→17:32)
[2022-12-13] MEDS: FUROSEMIDE 40 MG TABLET PO (09:03)
[2022-12-13] MEDS: PANTOPRAZOLE 40 MG TABLET PO (09:03)
--- NOTE | 2022-12-13 11:30 | PM.IMPN ---
Progress Note: A&P Assessment and Plan (1) UTI (urinary tract infection): Qualifiers: Urinary tract infection type: acute cystitis Hematuria presence: with hematuria Qualified Code(s): N30.01 - Acute cystitis with hematuria Code(s): N39.0 - Urinary tract infection, site not specified Status: Acute Assessment and Plan: CT shows acute cystitis UA does appear infectious with bacteria, leukocyte esterase, nitrates continue ceftriaxone for now trend urine output tailor antibiotics to culture results (2) Leukocytosis: Qualifiers: Leukocytosis type: unspecified Qualified Code(s): D72.829 - Elevated white blood cell count, unspecified Code(s): D72.829 - Elevated white blood cell count, unspecified Status: Acute Assessment and Plan: white blood cell count 29202 could be related to the UTI however patient has had 5 courses of antibiotics over the last 6 weeks C diff ordered trend WBCs blood cultures pending (3) Status post total colectomy: Code(s): Z90.49 - Acquired absence of other specified parts of digestive tract Status: Acute Assessment and Plan: Continue ostomy care stable draining a green stool (4) CATY (obstructive sleep apnea): Code(s): G47.33 - Obstructive sleep apnea (adult) (pediatric) Status: Acute Assessment and Plan: CPAP at nighttime (5) Atrial fibrillation: Qualifiers: Atrial fibrillation type: paroxysmal Qualified Code(s): I48.0 - Paroxysmal atrial fibrillation Code(s): I48.91 - Unspecified atrial fibrillation Status: Acute Assessment and Plan: Rate controlled and anticoagulated continue home medications flecainide 50 mg p.o. b.i.d. 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 Status: Acute Assessment and Plan: Fall precautions Round the clock turning schedule (7) Neurogenic bladder: Code(s): N31.9 - Neuromuscular dysfunction of bladder, unspecified Status: Acute Assessment and Plan: suprapubic catheter present urology consulted trend urine output ensured site remains clean (8) Type 2 diabetes mellitus: Qualifiers: Diabetes mellitus fci insulin use: with fci use Diabetes mellitus complication status: without complication Qualified Code(s): E11.9 - Type 2 diabetes mellitus without complications; Z79.4 - watermelon inspector (current) use of insulin Code(s): E11.9 - Type 2 diabetes mellitus without complications Status: Acute Assessment and Plan: Continue home meds insulin sliding scale current glucose is 250 trend glucose Accu-Cheks a.c. HS adjust therapy as indicated hypoglycemia protocol Time Spent With Patient Time: 54 minutes Time with patient: Greater than 35 minutes Subjective Date/time seen: 12/13/22 1130 Interval history: 12/13/22 113 patient and daughter were in the room. Patient ANNETTE Frye talk about her daughter. Currently patient stated that her belly is hurting and she had me look at her abdomen. No areas of infection noted. She does have a green thick stool coming out of her ostomy. Her daughter was asking me questions about her urostomy. It was also noted the patient is urinating more out of her urethra that her urostomy. Consulted Urology at this time. complete review of systems unable to be obtained due to patient's mental status. 12/13/22? 01:40 This is an 82-year-old female with past medical history significant for insulin-dependent diabetes mellitus, hypothyroidism, dyslipidemia, status post partial colectomy and colostomy placement, chronic indwelling suprapubic catheter, familial hereditary spastic paraplegia
--- NOTE | 2022-12-13 11:30 | P.PNIM_ITS ---
Progress Note: A&P Assessment and Plan (1) UTI (urinary tract infection): Qualifiers: Urinary tract infection type: acute cystitis Hematuria presence: with hematuria Qualified Code(s): N30.01 - Acute cystitis with hematuria Code(s): N39.0 - Urinary tract infection, site not specified Status: Acute Assessment and Plan: * CT shows acute cystitis * UA does appear infectious with bacteria, leukocyte esterase, nitrates * continue ceftriaxone for now * trend urine output * tailor antibiotics to culture results (2) Leukocytosis: Qualifiers: Leukocytosis type: unspecified Qualified Code(s): D72.829 - Elevated white blood cell count, unspecified Code(s): D72.829 - Elevated white blood cell count, unspecified Status: Acute Assessment and Plan: * white blood cell count 12610 * could be related to the UTI however patient has had 5 courses of antibiotics over the last 6 weeks * C diff ordered * trend WBCs * blood cultures pending (3) Status post total colectomy: Code(s): Z90.49 - Acquired absence of other specified parts of digestive tract Status: Acute Assessment and Plan: * Continue ostomy care * stable * draining a green stool (4) CATY (obstructive sleep apnea): Code(s): G47.33 - Obstructive sleep apnea (adult) (pediatric) Status: Acute Assessment and Plan: * CPAP at nighttime (5) Atrial fibrillation: Qualifiers: Atrial fibrillation type: paroxysmal Qualified Code(s): I48.0 - Paroxysmal atrial fibrillation Code(s): I48.91 - Unspecified atrial fibrillation Status: Acute Assessment and Plan: * Rate controlled and anticoagulated * continue home medications flecainide 50 mg p.o. b.i.d. 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 Status: Acute Assessment and Plan: Fall precautions Round the clock turning schedule (7) Neurogenic bladder: Code(s): N31.9 - Neuromuscular dysfunction of bladder, unspecified Status: Acute Assessment and Plan: * suprapubic catheter present * urology consulted * trend urine output * ensured site remains clean (8) Type 2 diabetes mellitus: Qualifiers: Diabetes mellitus custodial insulin use: with custodial use Diabetes mellitus complication status: without complication Qualified Code(s): E11.9 - Type 2 diabetes mellitus without complications; Z79.4 - termite control representative (current) use of insulin Code(s): E11.9 - Type 2 diabetes mellitus without complications Status: Acute Assessment and Plan: * Continue home meds * insulin sliding scale * current glucose is 250 * trend glucose * Accu-Cheks a.c. HS * adjust therapy as indicated * hypoglycemia protocol Time Spent With Patient Time: 54 minutes Time with patient: Greater than 35 minutes Subjective Date/time seen: 12/13/22 1130 Interval history: 12/13/22 1130 patient and daughter were in the room. Patient ANNETTE Frye talk about her daughter. Currently patient stated that her belly is hurting
[2022-12-13] MEDS: busPIRone HCL 5 MG TABLET PO ×2 (12:00→17:32)
[2022-12-13] MEDS: INSULIN GLARGINE (*BKC) 100 UNITS/ML 12 UNITS SUB-Q ×2 (12:10→17:34)
[2022-12-13 12:11] LABS: Glucose Point of Care 311 mg/dl (65-105)
[2022-12-13] MEDS: INSULIN ASPART (*BKC) 100 UNITS/ML SUB-Q ×4 (12:11→17:37)
[2022-12-13 15:19] LABS: Toxigenic C. Diff NEGATIVE (NEGATIVE)
--- NOTE | 2022-12-13 15:19 | PHAR ---
PT'S HOME MED BROMFENAC 0.09% OPTH SOLN VERIFIED BY PHARMACY
--- NOTE | 2022-12-13 16:25 | WPDURCON ---
Assessment and Plan Assessment and plan (1) Chronic indwelling Schmitt catheter: Code(s): Z97.8 - Presence of other specified devices Status: Acute Assessment and Plan: SP tube changed to an 18fr instead of 16fr which was in there prior. It appears to be draining better. She was given instructions at the [facility] to irrigate daily, however I am unsure it is being done as it appears to clog easily and not drain then she leaks from the urethra. She tolerated the SP tube change today well. Urine is draining in new SP tube, clear yellow urine 80cc on return, prepped with Betadine and 10cc added to the balloon. (2) Suprapubic catheter: Code(s): Z93.59 - Other cystostomy status Status: Acute Assessment and Plan: F/U in 3 weeks for another change. Continue daily irrigation to ensure catheter patency. (3) Neurogenic bladder: Code(s): N31.9 - Neuromuscular dysfunction of bladder, unspecified Status: Acute (4) UTI (urinary tract infection): Qualifiers: Hematuria presence: with hematuria Urinary tract infection type: acute cystitis Qualified Code(s): N30.01 - Acute cystitis with hematuria Code(s): N39.0 - Urinary tract infection, site not specified Status: Acute Assessment and Plan: Cultures are pending, tailor antibiotics to culture results. Urology Consult Note HPI Date Seen: 12/13/22 Time Seen: 16:25 Requesting Physician: Magdi De Souza MD Primary Care Provider: Elizabeth Car MD Consult Narrative Reason for consult: UTI/Catheter Problem Narrative: Perla Leon is a 82 year old female who presented to the ER yesterday for abdominal pain and low urine output from her SP tube. She is a patient of mine that comes in monthly for SP tube changes at the office. She had a CT scan int he ER that showed cystitis, SP tue in place and normal kidneys. Her UA is suggestive of a UTI and urine culture is pending. Creatinine is 0.50, WBC is 36.7. Blood cultures were also taken and are pending. The patient is A&O x1. I spoke with her daughter on the phone and she has had concerns for a long time about her urine leaking from the urethra which we have determined is d/t bladder spasms. She states that she is concerned d/t skin breakdown in the vaginal area d/t the incontinence despite the SP tube being in place. We have tried anticholinergics for the spasms which are not working. Per her daughters request, her SP tube should be changed while in the hospital as she cannot get an appt within a month at the office to have it changed in a timely manner. Review of Systems Review of Systems: ROS unobtainable: Yes unobtainable due to mental status PMFSH Past Medical History Medical History Atherosclerotic heart disease Atrial fibrillation Breast cancer Chronic idiopathic constipation Congestive heart failure Familial spastic paraplegia GERD (gastroesophageal reflux disease) Glaucoma Hereditary spastic paraplegia History of pulmonary embolism Hyperparathyroidism Hypertension Hypothyroidism Multiple sclerosis Neurogenic bladder CATY (obstructive sleep apnea) uncompliant with CPAP TIA (transient ischemic attack) Type 2 diabetes mellitus UTI (urinary tract infection) Surgical History Surgical History Chronic suprapubic catheter H/O: hysterectomy S/P colectomy subtotal colectomy with end ileostomy 10/27/22 Family History Family History Father Spastic paralysis Mother Breast cancer Social History Social History Social History: Resides at [facility]. She has 3 daughters. 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 Code status full code Smoking status: Never smoker Second hand tobacco smoke exposure: No Alcohol intake: ne
[2022-12-13 17:05] LABS: Glucose Point of Care 242 mg/dl (65-105)
[2022-12-13] MEDS: ROSUVASTATIN 10 MG TABLET PO (20:26)
[2022-12-13] MEDS: MELATONIN 5 MG TABLET PO (20:27)
[2022-12-13] MEDS: ESCITALOPRAM OXALATE 10 MG TABLET PO (20:27)
[2022-12-13 21:21] LABS: Glucose Point of Care 266 mg/dl (65-105)
[2022-12-14] MEDS: SODIUM CHLORIDE 0.9% IV 1,000 ML 125 ML IV CONT ×3 (00:08→17:20)
[2022-12-14] MEDS: PIPERACILLN/TAZ 3.375GM/NS50ML 3.375 GM/50 ML BAG IVPB ×4 (02:00→19:51)
[2022-12-14] MEDS: LEVOTHYROXINE SODIUM 75 MCG TABLET PO (05:57)
[2022-12-14 06:00] VITALS: BP 138/60; PULSE 72; RESP 18; TEMP 36.9; O2SAT 96
[2022-12-14] MEDS: FUROSEMIDE 40 MG TABLET PO (08:20)
[2022-12-14] MEDS: SPIRONOLACTONE 25 MG TABLET PO (08:20)
[2022-12-14] MEDS: APIXABAN 5 MG TABLET BY MOUTH ×2 (08:20→19:59)
[2022-12-14] MEDS: PANTOPRAZOLE 40 MG TABLET PO (08:20)
[2022-12-14 08:21] VITALS: PULSE 70
[2022-12-14] MEDS: busPIRone HCL 5 MG TABLET PO ×3 (08:21→17:20)
[2022-12-14] MEDS: oxyBUTYnin CHLORIDE XL 5 MG TAB.ER.24 PO ×2 (08:21→17:20)
[2022-12-14] MEDS: ANASTROZOLE (*CHEMO) 1 MG TABLET PO (08:21)
[2022-12-14] MEDS: FLECAINIDE ACETATE 50 MG TABLET PO ×2 (08:21→19:59)
[2022-12-14] MEDS: DORZOLAMIDE HCL 2% OPHTH DROPS 2 DROP EACH EYE ×3 (08:22→17:20)
[2022-12-14 08:46] LABS: Glucose Point of Care 201 mg/dl (65-105)
[2022-12-14] MEDS: INSULIN GLARGINE (*BKC) 100 UNITS/ML 12 UNITS SUB-Q ×2 (09:03→17:21)
[2022-12-14] MEDS: INSULIN ASPART (*BKC) 100 UNITS/ML SUB-Q ×4 (09:04→17:20)
[2022-12-14 09:30] LABS: Hemoglobin 10.7 g/dL (12.0-15.0); Mean Corpuscular HGB Conc 30.6 g/dl (32-36); Mean Corpuscular Volume 71.9 fl (80-100); Platelet Count Result 351 k/mm3 (150-375); Red Blood Count 4.87 M/mm3 (4.2-5.4); Red Cell Distribution Width 16.9 % (11.5-14.5)
[2022-12-14] MEDS: POTASSIUM CHLORIDE 20 MEQ ER TABLET PO ×2 (09:42→17:41)
[2022-12-14 09:59] LABS: Anion Gap 5 mmol/L (8-16); Blood Urea Nitrogen 21 mg/dL (7-17); Calcium 10.8 mg/dL (8.4-10.2); Carbon Dioxide 16 mmol/L (22-30); Chloride 110 mmol/L (98-107); Estimated CRCL calculation 51 ml/min; Estimated Glomerular Filt Rate > 60; Glucose 187 mg/dL (65-110); Potassium 3.6 mmol/L (3.4-5.0); Sodium 131 mmol/L (137-145)
[2022-12-14 12:48] LABS: Glucose Point of Care 197 mg/dl (65-105)
--- NOTE | 2022-12-14 12:50 | PM.IMPN ---
Progress Note: A&P Assessment and Plan (1) UTI (urinary tract infection): Qualifiers: Hematuria presence: with hematuria Urinary tract infection type: acute cystitis Qualified Code(s): N30.01 - Acute cystitis with hematuria Code(s): N39.0 - Urinary tract infection, site not specified Status: Acute Assessment and Plan: Negative urine culture likely due to antibiotics that were begun at [facility] prior to admission Secondary consideration is presacral wound that could be source of infection as well Continue Zosyn started 12/13/2022 Blood culture results pending (2) Leukocytosis: Qualifiers: Leukocytosis type: unspecified Qualified Code(s): D72.829 - Elevated white blood cell count, unspecified Code(s): D72.829 - Elevated white blood cell count, unspecified Status: Acute Assessment and Plan: 37,000 at admission 12/14/2022 19,000 (3) Altered mental status: Code(s): R41.82 - Altered mental status, unspecified Status: Acute Assessment and Plan: 12/14/2022 at baseline per daughter who is at bedside (4) Status post total colectomy: Code(s): Z90.49 - Acquired absence of other specified parts of digestive tract Status: Acute Assessment and Plan: Continue ostomy care (5) CATY (obstructive sleep apnea): Code(s): G47.33 - Obstructive sleep apnea (adult) (pediatric) Status: Acute Assessment and Plan: CPAP at nighttime (6) Atrial fibrillation: Qualifiers: Atrial fibrillation type: paroxysmal Qualified Code(s): I48.0 - Paroxysmal atrial fibrillation Code(s): I48.91 - Unspecified atrial fibrillation Status: Acute Assessment and Plan: Rate controlled and anticoagulated (7) Hereditary spastic paraplegia: Code(s): 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 Status: Acute Assessment and Plan: Fall precautions Round the clock turning schedule (8) Neurogenic bladder: Code(s): N31.9 - Neuromuscular dysfunction of bladder, unspecified Status: Acute Assessment and Plan: Suprapubic catheter chronic with history of recurrent UTIs (9) GERD (gastroesophageal reflux disease): Code(s): K21.9 - Gastro-esophageal reflux disease without esophagitis Status: Acute Assessment and Plan: PPI (10) Type 2 diabetes mellitus: Qualifiers: Diabetes mellitus care home insulin use: with terminal manager use Diabetes mellitus complication status: without complication Qualified Code(s): E11.9 - Type 2 diabetes mellitus without complications; Z79.4 - intermediate manager (current) use of insulin Code(s): E11.9 - Type 2 diabetes mellitus without complications Status: Acute Assessment and Plan: Continue current regimen 12/14/2022 fasting blood sugar 201 Subjective Date/time seen: 12/14/22 12:50 Interval history: Tolerating diet. Voices no complaints. Daughter at bedside. Review of Systems Review of Systems: ROS unobtainable: Yes unobtainable due to mental status Exam Narrative: HEENT: PERRL, sclerae nonicteric, pharyngeal mucosa pink and intact. NECK: No JVD. CHEST: Clear to auscultation. Normal effort. HEART: NL S1/S2, regular, no murmur ABDOMEN: BS+, soft, nontender, no mass, no bruits, suprapubic catheter in place. EXTREMITIES: No cyanosis, edema, or clubbing NEUROLOGIC: CN intact and symmetric to inspection. Mild coarse to tube a paula and tremors of hands. Speech hesitant. Sparse. MUSCULOSKELETAL: Tone and strength symmetric. PSYCH: Alert. Oriented to person, but not to place or time Objective Data Vital Signs Vital Signs: Vital Signs - 24 hr 12/13/22 14:53 12/13/22 20:26 12/13/22 21:45 Temperature 98.2 F 97.8 F Pulse Rate 97 80 81 Respiratory Rate 20 18 Blood Pressure 140/54 L 138/60 Pulse Oximetry 97 96 Oxygen Delivery 12/13/22 20:00 12/13/22 23:00 12/14/22 06:00 Temperature 98.4 F
[2022-12-14 15:21] VITALS: BP 158/58; PULSE 73; RESP 17; TEMP 36.2; O2SAT 97
[2022-12-14 17:23] LABS: Glucose Point of Care 180 mg/dl (65-105)
[2022-12-14 19:59] VITALS: PULSE 80
[2022-12-14] MEDS: MELATONIN 5 MG TABLET PO (19:59)
[2022-12-14] MEDS: ROSUVASTATIN 10 MG TABLET PO (19:59)
[2022-12-14] MEDS: ESCITALOPRAM OXALATE 10 MG TABLET PO (19:59)
[2022-12-14 21:25] VITALS: BP 118/50; PULSE 71; RESP 16; TEMP 36.7; O2SAT 100
[2022-12-14 21:41] LABS: Glucose Point of Care 239 mg/dl (65-105)
[2022-12-14 22:05] VITALS: O2SAT 99
[2022-12-15] MEDS: SODIUM CHLORIDE 0.9% IV 1,000 ML 125 ML IV CONT ×2 (01:06→12:15)
[2022-12-15] MEDS: PIPERACILLN/TAZ 3.375GM/NS50ML 3.375 GM/50 ML BAG IVPB ×4 (01:07→21:35)
[2022-12-15] MEDS: LEVOTHYROXINE SODIUM 75 MCG TABLET 150 MCG PO (05:28)
[2022-12-15 05:41] LABS: Hematocrit 31.9 % (37.0-47.0); Hemoglobin 9.8 g/dL (12.0-15.0); Mean Corpuscular HGB Conc 30.7 g/dl (32-36); Mean Corpuscular Hemoglobin 22.3 pg (26-34); Mean Corpuscular Volume 72.7 fl (80-100); Mean Platelet Volume 10.4 fl (7.4-10.4); Platelet Count Result 328 k/mm3 (150-375); Red Blood Count 4.39 M/mm3 (4.2-5.4); Red Cell Distribution Width 16.9 % (11.5-14.5); White Blood Count 14.3 K/mm3 (4.5-10.0)
[2022-12-15 05:54] LABS: Anion Gap 6 mmol/L (8-16); Blood Urea Nitrogen 18 mg/dL (7-17); Calcium 10.3 mg/dL (8.4-10.2); Carbon Dioxide 15 mmol/L (22-30); Chloride 114 mmol/L (98-107); Estimated CRCL calculation 60 ml/min; Estimated Glomerular Filt Rate > 60; Glucose 149 mg/dL (65-110); Potassium 3.5 mmol/L (3.4-5.0); Sodium 135 mmol/L (137-145)
[2022-12-15 05:58] VITALS: BP 130/48; PULSE 68; RESP 20; TEMP 36.7; O2SAT 98
[2022-12-15] MEDS: INSULIN ASPART (*BKC) 100 UNITS/ML SUB-Q ×4 (09:01→17:59)
[2022-12-15 09:03] VITALS: PULSE 70
[2022-12-15] MEDS: FUROSEMIDE 40 MG TABLET PO (09:03)
[2022-12-15] MEDS: FLECAINIDE ACETATE 50 MG TABLET PO ×2 (09:03→21:30)
[2022-12-15] MEDS: APIXABAN 5 MG TABLET BY MOUTH ×2 (09:03→21:30)
[2022-12-15] MEDS: POTASSIUM CHLORIDE 20 MEQ ER TABLET PO ×2 (09:03→17:03)
[2022-12-15] MEDS: PANTOPRAZOLE 40 MG TABLET PO (09:03)
[2022-12-15] MEDS: ANASTROZOLE (*CHEMO) 1 MG TABLET PO (09:04)
[2022-12-15] MEDS: oxyBUTYnin CHLORIDE XL 5 MG TAB.ER.24 PO ×2 (09:04→16:42)
[2022-12-15] MEDS: busPIRone HCL 5 MG TABLET PO ×3 (09:04→16:42)
[2022-12-15] MEDS: SPIRONOLACTONE 25 MG TABLET PO (09:04)
[2022-12-15] MEDS: DORZOLAMIDE HCL 2% OPHTH DROPS 2 DROP EACH EYE ×3 (09:07→16:42)
[2022-12-15] MEDS: INSULIN GLARGINE (*BKC) 100 UNITS/ML 12 UNITS SUB-Q ×2 (09:07→17:58)
[2022-12-15 09:17] LABS: Glucose Point of Care 155 mg/dl (65-105)
--- NOTE | 2022-12-15 11:00 | PM.IMPN ---
Progress Note: A&P Assessment and Plan (1) UTI (urinary tract infection): Qualifiers: Hematuria presence: with hematuria Urinary tract infection type: acute cystitis Qualified Code(s): N30.01 - Acute cystitis with hematuria Code(s): N39.0 - Urinary tract infection, site not specified Status: Acute Assessment and Plan: Negative urine culture likely due to antibiotics that were begun at [facility] prior to admission Secondary consideration is presacral wound that could be source of infection as well Continue Zosyn started 12/13/2022 Blood culture results preliminary negative On 11/17/2022 urine grew Pseudomonas that was sensitive to all antibiotics tested except imipenem Consider completing a minimum of 5 days of Zosyn (no good PO option due to flecainide interaction with quinolones) (2) Leukocytosis: Qualifiers: Leukocytosis type: unspecified Qualified Code(s): D72.829 - Elevated white blood cell count, unspecified Code(s): D72.829 - Elevated white blood cell count, unspecified Status: Acute Assessment and Plan: 37,000 at admission 12/14/2022 19,000, 12/15 14,300 (3) Altered mental status: Qualifiers: Altered mental status type: unspecified Qualified Code(s): R41.82 - Altered mental status, unspecified Code(s): R41.82 - Altered mental status, unspecified Status: Acute Assessment and Plan: 12/14/2022 at baseline per daughter (4) Status post total colectomy: Code(s): Z90.49 - Acquired absence of other specified parts of digestive tract Status: Acute Assessment and Plan: Continue ostomy care (5) CATY (obstructive sleep apnea): Code(s): G47.33 - Obstructive sleep apnea (adult) (pediatric) Status: Acute Assessment and Plan: CPAP at nighttime (6) Atrial fibrillation: Qualifiers: Atrial fibrillation type: paroxysmal Qualified Code(s): I48.0 - Paroxysmal atrial fibrillation Code(s): I48.91 - Unspecified atrial fibrillation Status: Acute Assessment and Plan: Rate controlled and anticoagulated On flecainide (7) Hereditary spastic paraplegia: Code(s): 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 Status: Acute Assessment and Plan: Fall precautions Round the clock turning schedule (8) Neurogenic bladder: Code(s): N31.9 - Neuromuscular dysfunction of bladder, unspecified Status: Acute Assessment and Plan: Suprapubic catheter chronic with history of recurrent UTIs (9) GERD (gastroesophageal reflux disease): Code(s): K21.9 - Gastro-esophageal reflux disease without esophagitis Status: Acute Assessment and Plan: PPI (10) Type 2 diabetes mellitus: Qualifiers: Diabetes mellitus terminal block assembler insulin use: with terminal block assembler use Diabetes mellitus complication status: without complication Qualified Code(s): E11.9 - Type 2 diabetes mellitus without complications; Z79.4 - joint terminal attack controller (current) use of insulin Code(s): E11.9 - Type 2 diabetes mellitus without complications Status: Acute Assessment and Plan: Continue current regimen 12/14/2022 fasting blood sugar 201, 12/15 155 Subjective Date/time seen: 12/15/22 11:00 Interval history: Tolerating diet. Voices no complaints. at bedside. Review of Systems Review of Systems: ROS unobtainable: Yes unobtainable due to mental status Exam Narrative: HEENT: PERRL, sclerae nonicteric, pharyngeal mucosa pink and intact. NECK: No JVD. CHEST: Clear to auscultation. Normal effort. HEART: NL S1/S2, regular, no murmur ABDOMEN: BS+, soft, nontender, no mass, no bruits, suprapubic catheter in place. EXTREMITIES: No cyanosis, edema, or clubbing NEUROLOGIC: CN intact and symmetric to inspection. Mild coarse to tube a paula and tremors of hands. Speech hesitant. Sparse. MUSCULOSKELETAL: Tone and strength symmetric. PSYCH: Alert. Oriented
[2022-12-15 12:13] LABS: Glucose Point of Care 280 mg/dl (65-105)
[2022-12-15 14:00] VITALS: BP 111/50; PULSE 77; RESP 18; TEMP 36.6; O2SAT 99
[2022-12-15 18:10] LABS: Glucose Point of Care 165 mg/dl (65-105)
[2022-12-15 20:00] VITALS: PULSE 69; RESP 16; O2SAT 97
[2022-12-15 20:05] LABS: Glucose Point of Care 235 mg/dl (65-105)
[2022-12-15 21:30] VITALS: PULSE 74
[2022-12-15] MEDS: MELATONIN 5 MG TABLET PO (21:30)
[2022-12-15] MEDS: ESCITALOPRAM OXALATE 10 MG TABLET PO (21:30)
[2022-12-15] MEDS: ROSUVASTATIN 10 MG TABLET PO (21:30)
[2022-12-15 22:00] VITALS: BP 129/49; PULSE 69; RESP 16; TEMP 36.7; O2SAT 97
[2022-12-16] MEDS: SODIUM CHLORIDE 0.9% IV 1,000 ML 125 ML IV CONT ×3 (00:24→17:58)
[2022-12-16] MEDS: PIPERACILLN/TAZ 3.375GM/NS50ML 3.375 GM/50 ML BAG IVPB ×4 (04:03→21:51)
[2022-12-16] MEDS: LEVOTHYROXINE SODIUM 75 MCG TABLET PO (05:52)
[2022-12-16 05:55] VITALS: BP 122/58; PULSE 67; RESP 18; TEMP 36.5; O2SAT 99
[2022-12-16 06:47] LABS: Hematocrit 31.8 % (37.0-47.0); Hemoglobin 9.8 g/dL (12.0-15.0); Mean Corpuscular HGB Conc 30.8 g/dl (32-36); Mean Corpuscular Volume 71.3 fl (80-100); Mean Platelet Volume 10.9 fl (7.4-10.4); Platelet Count Result 325 k/mm3 (150-375); Red Blood Count 4.46 M/mm3 (4.2-5.4); Red Cell Distribution Width 17.2 % (11.5-14.5); White Blood Count 14.6 K/mm3 (4.5-10.0)
[2022-12-16 07:21] LABS: Anion Gap 5 mmol/L (8-16); Blood Urea Nitrogen 16 mg/dL (7-17); Calcium 9.8 mg/dL (8.4-10.2); Carbon Dioxide 17 mmol/L (22-30); Chloride 113 mmol/L (98-107); Estimated CRCL calculation 73 ml/min; Estimated Glomerular Filt Rate > 60; Glucose 162 mg/dL (65-110); Potassium 3.7 mmol/L (3.4-5.0); Sodium 135 mmol/L (137-145)
[2022-12-16 08:07] LABS: Glucose Point of Care 157 mg/dl (65-105)
--- NOTE | 2022-12-16 09:00 | P.PNIM_ITS ---
Progress Note: A&P Assessment and Plan (1) UTI (urinary tract infection): Qualifiers: Hematuria presence: with hematuria Urinary tract infection type: acute cystitis Qualified Code(s): N30.01 - Acute cystitis with hematuria Code(s): N39.0 - Urinary tract infection, site not specified Status: Acute Assessment and Plan: * CT shows acute cystitis * UA does appear infectious with bacteria, leukocyte esterase, nitrates * continue ceftriaxone for now * trend urine output * tailor antibiotics to culture results * culture shows no mixed genital rebeka indicating contamination * complete Zosyn course at this time (2) Leukocytosis: Qualifiers: Leukocytosis type: unspecified Qualified Code(s): D72.829 - Elevated white blood cell count, unspecified Code(s): D72.829 - Elevated white blood cell count, unspecified Status: Acute Assessment and Plan: * white blood cell count 42624, currently 14.6 * could be related to the UTI however patient has had 5 courses of antibiotics over the last 6 weeks * C diff negative * trend WBCs * blood cultures pending * might be from the sacral wound (3) Status post total colectomy: Code(s): Z90.49 - Acquired absence of other specified parts of digestive tract Status: Acute Assessment and Plan: * Continue ostomy care * stable * draining a green stool (4) CATY (obstructive sleep apnea): Code(s): G47.33 - Obstructive sleep apnea (adult) (pediatric) Status: Acute Assessment and Plan: * CPAP at nighttime (5) Atrial fibrillation: Qualifiers: Atrial fibrillation type: paroxysmal Qualified Code(s): I48.0 - Paroxysmal atrial fibrillation Code(s): I48.91 - Unspecified atrial fibrillation Status: Acute Assessment and Plan: * Rate controlled and anticoagulated * continue home medications flecainide 50 mg p.o. b.i.d. 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 Status: Acute Assessment and Plan: Fall precautions Round the clock turning schedule (7) Neurogenic bladder: Code(s): N31.9 - Neuromuscular dysfunction of bladder, unspecified Status: Acute Assessment and Plan: * suprapubic catheter present * urology consulted * trend urine output * ensured site remains clean (8) Type 2 diabetes mellitus: Qualifiers: Diabetes mellitus halfway insulin use: with keno terminal operator use Diabetes mellitus complication status: without complication Qualified Code(s): E11.9 - Type 2 diabetes mellitus without complications; Z79.4 - snf (current) use of insulin Code(s): E11.9 - Type 2 diabetes mellitus without complications Status: Acute Assessment and Plan: * Continue home meds * insulin sliding scale * current glucose is 162 * trend glucose * Accu-Cheks a.c. HS * adjust therapy as indicated * hypoglycemia protocol Time Spent With Patient Time: 39 minutes Time with patient: Greater than 35 minutes Subjective Date/time seen: 12/16/22 16:16 Interval history: p
--- NOTE | 2022-12-16 09:00 | PM.IMPN ---
Progress Note: A&P Assessment and Plan (1) UTI (urinary tract infection): Qualifiers: Hematuria presence: with hematuria Urinary tract infection type: acute cystitis Qualified Code(s): N30.01 - Acute cystitis with hematuria Code(s): N39.0 - Urinary tract infection, site not specified Status: Acute Assessment and Plan: CT shows acute cystitis UA does appear infectious with bacteria, leukocyte esterase, nitrates continue ceftriaxone for now trend urine output tailor antibiotics to culture results culture shows no mixed genital rebeka indicating contamination complete Zosyn course at this time (2) Leukocytosis: Qualifiers: Leukocytosis type: unspecified Qualified Code(s): D72.829 - Elevated white blood cell count, unspecified Code(s): D72.829 - Elevated white blood cell count, unspecified Status: Acute Assessment and Plan: white blood cell count [id number], currently 14.6 could be related to the UTI however patient has had 5 courses of antibiotics over the last 6 weeks C diff negative trend WBCs blood cultures pending might be from the sacral wound (3) Status post total colectomy: Code(s): Z90.49 - Acquired absence of other specified parts of digestive tract Status: Acute Assessment and Plan: Continue ostomy care stable draining a green stool (4) CATY (obstructive sleep apnea): Code(s): G47.33 - Obstructive sleep apnea (adult) (pediatric) Status: Acute Assessment and Plan: CPAP at nighttime (5) Atrial fibrillation: Qualifiers: Atrial fibrillation type: paroxysmal Qualified Code(s): I48.0 - Paroxysmal atrial fibrillation Code(s): I48.91 - Unspecified atrial fibrillation Status: Acute Assessment and Plan: Rate controlled and anticoagulated continue home medications flecainide 50 mg p.o. b.i.d. 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 Status: Acute Assessment and Plan: Fall precautions Round the clock turning schedule (7) Neurogenic bladder: Code(s): N31.9 - Neuromuscular dysfunction of bladder, unspecified Status: Acute Assessment and Plan: suprapubic catheter present urology consulted trend urine output ensured site remains clean (8) Type 2 diabetes mellitus: Qualifiers: Diabetes mellitus shelter insulin use: with middle or intermediate school principal use Diabetes mellitus complication status: without complication Qualified Code(s): E11.9 - Type 2 diabetes mellitus without complications; Z79.4 - senior care (current) use of insulin Code(s): E11.9 - Type 2 diabetes mellitus without complications Status: Acute Assessment and Plan: Continue home meds insulin sliding scale current glucose is 162 trend glucose Accu-Cheks a.c. HS adjust therapy as indicated hypoglycemia protocol Time Spent With Patient Time: 39 minutes Time with patient: Greater than 35 minutes Subjective Date/time seen: 12/16/22 16:16 Interval history: patient seems to be doing okay today. White blood cell count is 14.6. She does have clear yellow urine. She complains of her abdomen being kind of not well. She also complains of shortness of breath. She denies any chest pain or nausea vomiting. Will continue IV antibiotics at this time Review of Systems Review of Systems: ROS unobtainable: Yes unobtainable due to mental status Exam Narrative: General: well-nourished, well-appearing 82-year-old female, laying in bed, comfortable, NARD Neuro: awake, alert and oriented x4, speech clear, no focal neuro deficits noted HEENMT: normocephalic, atraumatic, EOMI, sclerae anicteric, moist oral mucosa Respirato
[2022-12-16] MEDS: oxyBUTYnin CHLORIDE XL 5 MG TAB.ER.24 PO ×2 (09:19→18:01)
[2022-12-16] MEDS: SPIRONOLACTONE 25 MG TABLET PO (09:19)
[2022-12-16] MEDS: APIXABAN 5 MG TABLET BY MOUTH ×2 (09:19→21:49)
[2022-12-16] MEDS: busPIRone HCL 5 MG TABLET PO ×3 (09:19→18:01)
[2022-12-16] MEDS: POTASSIUM CHLORIDE 20 MEQ ER TABLET PO ×2 (09:19→18:01)
[2022-12-16 09:20] VITALS: PULSE 64
[2022-12-16] MEDS: DORZOLAMIDE HCL 2% OPHTH DROPS 2 DROP EACH EYE ×3 (09:20→18:01)
[2022-12-16] MEDS: PANTOPRAZOLE 40 MG TABLET PO (09:20)
[2022-12-16] MEDS: FLECAINIDE ACETATE 50 MG TABLET PO ×2 (09:20→21:49)
[2022-12-16] MEDS: FUROSEMIDE 40 MG TABLET PO (09:20)
[2022-12-16] MEDS: ANASTROZOLE (*CHEMO) 1 MG TABLET PO (09:42)
[2022-12-16] MEDS: INSULIN ASPART (*BKC) 100 UNITS/ML SUB-Q ×4 (09:42→18:01)
[2022-12-16] MEDS: INSULIN GLARGINE (*BKC) 100 UNITS/ML 12 UNITS SUB-Q ×2 (09:42→18:02)
[2022-12-16 12:17] LABS: Glucose Point of Care 212 mg/dl (65-105)
[2022-12-16 14:00] VITALS: BP 142/55; PULSE 74; RESP 16; TEMP 36.6; O2SAT 98
--- NOTE | 2022-12-16 14:30 | PC.NURSE ---
Addendum entered by Aida Schuster RN 12/16/22 14:58: Patient is having incontinence. Original Note: Patient very calm and cooperative. She was able to take her medications whole with water without difficulty. Her potassium pill took a few attempts but absolutely no evidence of aspiration. Family present at bedside in the late AM and updated. present at bedside after lunch and is very attentive to patients needs. Suprapubic catheter draining clear, yellow urine. The PCT nor this RN have witness any incontinence.
[2022-12-16 17:22] LABS: Glucose Point of Care 182 mg/dl (65-105)
--- NOTE | 2022-12-16 18:47 | PC.NURSE ---
Patient continued to have excessive incontinence even with suprapubic catheter. Patient consuming meals and fluids very well. MD notified and IV fluids were discontinued.
[2022-12-16 20:24] LABS: Glucose Point of Care 240 mg/dl (65-105)
[2022-12-16 21:49] VITALS: PULSE 70
[2022-12-16] MEDS: MELATONIN 5 MG TABLET PO (21:49)
[2022-12-16] MEDS: ROSUVASTATIN 10 MG TABLET PO (21:49)
[2022-12-16] MEDS: ESCITALOPRAM OXALATE 10 MG TABLET PO (21:50)
[2022-12-16 22:00] VITALS: BP 143/52; PULSE 75; RESP 16; TEMP 36.7; O2SAT 100
[2022-12-17] MEDS: PIPERACILLN/TAZ 3.375GM/NS50ML 3.375 GM/50 ML BAG IVPB ×4 (05:29→20:31)
[2022-12-17] MEDS: LEVOTHYROXINE SODIUM 75 MCG TABLET PO (05:33)
[2022-12-17 05:56] LABS: Basophils Absolute Auto 0.1 K/mm3 (0.0-0.1); Basophils Percent Auto 0.6 % (0.2-1.2); Eosinophils Absolute Auto 0.6 K/mm3 (0-0.3); Eosinophils Percent Auto 3.5 % (0-4.4); Hemoglobin 11.1 g/dL (12.0-15.0); Immature Granulocyte Absolute 0.58 K/mm3 (0.00-0.031); Immature Granulocyte Percent A 3.4 % (0-0.5); Lymphocytes Absolute Auto 2.15 K/mm3 (0.9-3.2); Lymphocytes Percent Auto 12.6 % (18.3-44.2); Mean Corpuscular HGB Conc 31.7 g/dl (32-36); Mean Corpuscular Hemoglobin 22.6 pg (26-34); Mean Corpuscular Volume 71.3 fl (80-100); Mean Platelet Volume 10.2 fl (7.4-10.4); Monocytes Absolute Auto 3.1 K/mm3 (0.1-0.6); Monocytes Percent Auto 18.2 % (2.6-8.5); Neutrophils Absolute Auto 10.5 K/mm3 (1.3-6.7); Neutrophils Percent Auto 61.7 % (45.5-73.1); Platelet Count Result 348 k/mm3 (150-375); Red Blood Count 4.91 M/mm3 (4.2-5.4); Red Cell Distribution Width 18.2 % (11.5-14.5)
[2022-12-17 06:00] VITALS: BP 138/58; PULSE 82; RESP 20; TEMP 36.6; O2SAT 100
[2022-12-17 06:07] LABS: Alanine Aminotransferase 25 U/L (6-35); Albumin Level 3.1 g/dL (3.5-5.1); Alkaline Phosphatase 98 U/L (38-126); Anion Gap 7 mmol/L (8-16); Aspartate Amino Transferase 18 U/L (14-36); Bilirubin,Total 0.3 mg/dL (0.2-1.3); Blood Urea Nitrogen 19 mg/dL (7-17); Calcium 10.4 mg/dL (8.4-10.2); Carbon Dioxide 18 mmol/L (22-30); Chloride 110 mmol/L (98-107); Estimated CRCL calculation 60 ml/min; Estimated Glomerular Filt Rate > 60; Glucose 168 mg/dL (65-110); Magnesium 1.9 mg/dL (1.6-2.3); Potassium 3.6 mmol/L (3.4-5.0); Sodium 135 mmol/L (137-145)
[2022-12-17 06:51] LABS: Burr Cells 1+ (NORMAL); Platelet Estimate Adequate (Adequate); Poikilocytosis 1+ (NORMAL); Schistocytes None Seen (NORMAL)
[2022-12-17 08:06] LABS: Glucose Point of Care 162 mg/dl (65-105)
[2022-12-17 08:27] VITALS: PULSE 62
[2022-12-17] MEDS: SPIRONOLACTONE 25 MG TABLET PO (08:27)
[2022-12-17] MEDS: ANASTROZOLE (*CHEMO) 1 MG TABLET PO (08:27)
[2022-12-17] MEDS: FLECAINIDE ACETATE 50 MG TABLET PO ×2 (08:27→20:31)
[2022-12-17] MEDS: busPIRone HCL 5 MG TABLET PO ×3 (08:27→17:31)
[2022-12-17] MEDS: PANTOPRAZOLE 40 MG TABLET PO (08:27)
[2022-12-17] MEDS: POTASSIUM CHLORIDE 20 MEQ ER TABLET PO ×2 (08:27→17:31)
[2022-12-17] MEDS: oxyBUTYnin CHLORIDE XL 5 MG TAB.ER.24 PO ×2 (08:27→17:31)
[2022-12-17] MEDS: DORZOLAMIDE HCL 2% OPHTH DROPS 2 DROP EACH EYE ×3 (08:27→17:31)
[2022-12-17] MEDS: APIXABAN 5 MG TABLET BY MOUTH ×2 (08:27→20:31)
[2022-12-17] MEDS: FUROSEMIDE 40 MG TABLET PO (08:29)
[2022-12-17] MEDS: INSULIN GLARGINE (*BKC) 100 UNITS/ML 12 UNITS SUB-Q ×2 (08:36→17:32)
[2022-12-17] MEDS: INSULIN ASPART (*BKC) 100 UNITS/ML SUB-Q ×4 (08:36→17:32)
--- NOTE | 2022-12-17 08:47 | P.CDI_ITS ---
CDI Query Clarification Request BMI 26.0 Nutritional Diagnostic Statement Severe Protein calorie malnutrition related to chronic illness, recent surgery as evidenced by weight loss -16%/1 month, intakes <75% needs= 1 month Please refer to he comprehensive nutrition assessment for further information. Please clarify the severity of the protein calorie malnutrition if known: * Mild * Moderate * Severe * Other/Unspecified <Iliana Rios RN - Last Filed: 12/17/22 08:52> Clarified Diagnosis Clarified Diagnosis: Severe Protein Calorie Malnutrition <Gloria Gaam MD - Last Filed: 12/17/22 13:00>
[2022-12-17 12:33] LABS: Glucose Point of Care 361 mg/dl (65-105)
--- NOTE | 2022-12-17 12:47 | PM.IMPN ---
Progress Note: A&P Assessment and Plan (1) Chronic indwelling Schmitt catheter: Code(s): Z97.8 - Presence of other specified devices Status: Acute (2) UTI (urinary tract infection): Qualifiers: Hematuria presence: with hematuria Urinary tract infection type: acute cystitis Qualified Code(s): N30.01 - Acute cystitis with hematuria Code(s): N39.0 - Urinary tract infection, site not specified Status: Acute (3) Leukocytosis: Qualifiers: Leukocytosis type: unspecified Qualified Code(s): D72.829 - Elevated white blood cell count, unspecified Code(s): D72.829 - Elevated white blood cell count, unspecified Status: Acute (4) Altered mental status: Qualifiers: Altered mental status type: unspecified Qualified Code(s): R41.82 - Altered mental status, unspecified Code(s): R41.82 - Altered mental status, unspecified Status: Acute (5) Suprapubic catheter: Code(s): Z93.59 - Other cystostomy status Status: Acute (6) Hereditary spastic paraplegia: Code(s): 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 Status: Acute (7) Decubitus ulcer of sacral area: Qualifiers: Pressure injury stage: unspecified pressure injury stage Qualified Code(s): L89.159 - Pressure ulcer of sacral region, unspecified stage Code(s): L89.159 - Pressure ulcer of sacral region, unspecified stage Status: Acute Plan n 82-year-old female with past medical history significant for insulin-dependent diabetes mellitus, hypothyroidism, dyslipidemia, status post partial colectomy and colostomy placement, chronic indwelling suprapubic catheter, familial hereditary spastic paraplegia, neurogenic bladder, living at a detention comes back to the hospital due to low ostomy output. 1)UTI: c/w Zosyn Appreciate Urology help, Suprapubic catheter changed, Outpatient follow up in 3 weeks for change of catheter again Monitor leucocytosis 2)S/p total Colectomy: Good Ostomy output 3)Sacral Decubitus Ulcer: Appreciate Wound care help c/w local wound care 4)Paroxysmal Afibb: c/w flecainide c/w Eliquis 5)Diabetes Mellitus: BG check TID AC and HS c/w Lantus+ Meal time insulin Adjust dose as needed 6)DVT ppx: On liquis 7)Code:Full 8)Dispo:pending improvement Time Spent With Patient Time with patient: 25 - 35 minutes Subjective Date/time seen: 12/17/22 12:47 Interval history: no acute events overnight Review of Systems Review of Systems: ROS unobtainable: Yes unobtainable due to mental status Exam Narrative: General: well-nourished, well-appearing 82-year-old female, laying in bed, comfortable, NARD Neuro: awake, alert and oriented x4, speech clear, no focal neuro deficits noted HEENMT: normocephalic, atraumatic, EOMI, sclerae anicteric, moist oral mucosa Respiratory: Clear to auscultation bilaterally without crackles, rhonchi or wheezes, nonlabored breathing Cardio: regular rate, regular rhythm with S1-S2 Abdomen: nondistended, normoactive bowel sounds, soft, nontender to palpation Extremities: no edema, erythema, or tenderness to palpation, DP pulses 2+ bilaterally Skin: no rashes or lesions, warm and dry Psych: appropriate mood and affect, judgment and insight intact Objective Data Vital Signs Vital Signs: Vital Signs - 24 hr 12/16/22 14:00 12/16/22 21:49 12/16/22 22:00 Temperature 97.9 F 98.1 F Pulse Rate 74 70 75 Respiratory Rate 16 16 Blood Pressure 142/55 H 143/52 H Pulse Oximetry 98 100 Oxygen Delivery 12/16/22 20:00 12/17/22 06:00 12/17/22 08:27 Temperature 97.8 F Pulse Rate 82 62 Respiratory Rate 20 Blood Pressure 138/58 L Pulse Oximetry 100 Oxygen Delivery Room Air Intake/Output Intake/Output: Intake & Output 12/14/22 12/15/22 12/16/22 12/17/22 23:59 23:59 23:59 23:59 Intake Total 5410 4780 4520 940 Output Total 3729 3900 4100 450 Balance 1685 880 420 152
[2022-12-17 14:00] VITALS: BP 138/53; PULSE 66; RESP 16; TEMP 37; O2SAT 99
[2022-12-17 17:33] LABS: Glucose Point of Care 173 mg/dl (65-105)
[2022-12-17 20:31] VITALS: PULSE 68
[2022-12-17] MEDS: ROSUVASTATIN 10 MG TABLET PO (20:31)
[2022-12-17] MEDS: ESCITALOPRAM OXALATE 10 MG TABLET PO (20:31)
[2022-12-17] MEDS: MELATONIN 5 MG TABLET PO (20:31)
[2022-12-17 20:54] VITALS: BP 134/51; PULSE 71; RESP 16; TEMP 36.8; O2SAT 98
[2022-12-17 22:25] LABS: Glucose Point of Care 168 mg/dl (65-105)
[2022-12-18 05:19] VITALS: BP 126/58; PULSE 82; RESP 20; TEMP 37.1; O2SAT 100
[2022-12-18] MEDS: PIPERACILLN/TAZ 3.375GM/NS50ML 3.375 GM/50 ML BAG IVPB ×4 (05:35→21:00)
[2022-12-18] MEDS: LEVOTHYROXINE SODIUM 75 MCG TABLET PO (05:35)
[2022-12-18 06:07] LABS: Basophils Absolute Auto 0.1 K/mm3 (0.0-0.1); Basophils Percent Auto 0.7 % (0.2-1.2); Eosinophils Absolute Auto 0.6 K/mm3 (0-0.3); Eosinophils Percent Auto 3.7 % (0-4.4); Hemoglobin 10.8 g/dL (12.0-15.0); Immature Granulocyte Absolute 0.45 K/mm3 (0.00-0.031); Immature Granulocyte Percent A 2.7 % (0-0.5); Lymphocytes Absolute Auto 1.95 K/mm3 (0.9-3.2); Lymphocytes Percent Auto 11.8 % (18.3-44.2); Mean Corpuscular HGB Conc 31.8 g/dl (32-36); Mean Corpuscular Hemoglobin 22.6 pg (26-34); Mean Corpuscular Volume 71.3 fl (80-100); Mean Platelet Volume 10.4 fl (7.4-10.4); Monocytes Absolute Auto 3.2 K/mm3 (0.1-0.6); Neutrophils Absolute Auto 10.3 K/mm3 (1.3-6.7); Neutrophils Percent Auto 62.1 % (45.5-73.1); Platelet Count Result 363 k/mm3 (150-375); Red Blood Count 4.77 M/mm3 (4.2-5.4); Red Cell Distribution Width 18.2 % (11.5-14.5); White Blood Count 16.6 K/mm3 (4.5-10.0)
[2022-12-18 06:14] LABS: Anion Gap 4 mmol/L (8-16); Blood Urea Nitrogen 18 mg/dL (7-17); Calcium 10.6 mg/dL (8.4-10.2); Carbon Dioxide 18 mmol/L (22-30); Chloride 109 mmol/L (98-107); Estimated CRCL calculation 73 ml/min; Estimated Glomerular Filt Rate > 60; Glucose 161 mg/dL (65-110); Potassium 3.8 mmol/L (3.4-5.0); Sodium 131 mmol/L (137-145)
[2022-12-18 06:42] LABS: Anisocytosis 1+ (NORMAL); Burr Cells 1+ (NORMAL); Microcytosis 1+ (NORMAL); Platelet Estimate Adequate (Adequate); Schistocytes None Seen (NORMAL)
[2022-12-18 08:00] VITALS: PULSE 90; RESP 20; O2SAT 100
[2022-12-18 08:29] VITALS: PULSE 90
[2022-12-18] MEDS: FLECAINIDE ACETATE 50 MG TABLET PO ×2 (08:29→20:08)
[2022-12-18] MEDS: ANASTROZOLE (*CHEMO) 1 MG TABLET PO (08:30)
[2022-12-18] MEDS: oxyBUTYnin CHLORIDE XL 5 MG TAB.ER.24 PO ×2 (08:30→17:36)
[2022-12-18] MEDS: busPIRone HCL 5 MG TABLET PO ×3 (08:30→17:36)
[2022-12-18] MEDS: FUROSEMIDE 40 MG TABLET PO (08:30)
[2022-12-18] MEDS: PANTOPRAZOLE 40 MG TABLET PO (08:30)
[2022-12-18] MEDS: POTASSIUM CHLORIDE 20 MEQ ER TABLET PO ×2 (08:30→17:36)
[2022-12-18] MEDS: APIXABAN 5 MG TABLET BY MOUTH ×2 (08:30→20:08)
[2022-12-18] MEDS: SPIRONOLACTONE 25 MG TABLET PO (08:30)
[2022-12-18] MEDS: DORZOLAMIDE HCL 2% OPHTH DROPS 2 DROP EACH EYE ×3 (08:31→17:37)
[2022-12-18 09:20] LABS: Glucose Point of Care 154 mg/dl (65-105)
[2022-12-18] MEDS: INSULIN GLARGINE (*BKC) 100 UNITS/ML 12 UNITS SUB-Q ×2 (09:39→18:03)
[2022-12-18] MEDS: INSULIN ASPART (*BKC) 100 UNITS/ML SUB-Q ×4 (09:39→17:36)
[2022-12-18 12:40] LABS: Glucose Point of Care 241 mg/dl (65-105)
--- NOTE | 2022-12-18 13:02 | PM.IMPN ---
Progress Note: A&P Assessment and Plan (1) Chronic indwelling Schmitt catheter: Code(s): Z97.8 - Presence of other specified devices Status: Acute (2) UTI (urinary tract infection): Qualifiers: Hematuria presence: with hematuria Urinary tract infection type: acute cystitis Qualified Code(s): N30.01 - Acute cystitis with hematuria Code(s): N39.0 - Urinary tract infection, site not specified Status: Acute (3) Leukocytosis: Qualifiers: Leukocytosis type: unspecified Qualified Code(s): D72.829 - Elevated white blood cell count, unspecified Code(s): D72.829 - Elevated white blood cell count, unspecified Status: Acute (4) Altered mental status: Qualifiers: Altered mental status type: unspecified Qualified Code(s): R41.82 - Altered mental status, unspecified Code(s): R41.82 - Altered mental status, unspecified Status: Acute (5) Suprapubic catheter: Code(s): Z93.59 - Other cystostomy status Status: Acute (6) Hereditary spastic paraplegia: Code(s): 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 Status: Acute (7) Decubitus ulcer of sacral area: Qualifiers: Pressure injury stage: unspecified pressure injury stage Qualified Code(s): L89.159 - Pressure ulcer of sacral region, unspecified stage Code(s): L89.159 - Pressure ulcer of sacral region, unspecified stage Status: Acute Plan n 82-year-old female with past medical history significant for insulin-dependent diabetes mellitus, hypothyroidism, dyslipidemia, status post partial colectomy and colostomy placement, chronic indwelling suprapubic catheter, familial hereditary spastic paraplegia, neurogenic bladder, living at a snf comes back to the hospital due to low ostomy output. 1)UTI: c/w Zosyn Appreciate Urology help, Suprapubic catheter changed, Outpatient follow up in 3 weeks for change of catheter again Monitor leucocytosis 2)S/p total Colectomy: Good Ostomy output 3)Sacral Decubitus Ulcer: Appreciate Wound care help c/w local wound care 4)Paroxysmal Afibb: c/w flecainide c/w Eliquis 5)Diabetes Mellitus: BG check TID AC and HS c/w Lantus+ Meal time insulin Adjust dose as needed 6)DVT ppx: On Eliquis 7)Code:Full 8)Dispo:pending improvement Time Spent With Patient Time with patient: 25 - 35 minutes Subjective Date/time seen: 12/18/22 13:02 Interval history: no acute events overnight Review of Systems Review of Systems: ROS unobtainable: Yes unobtainable due to mental status Exam Narrative: General: well-nourished, well-appearing 82-year-old female, laying in bed, comfortable, NARD Neuro: awake, alert and oriented x4, speech clear, no focal neuro deficits noted HEENMT: normocephalic, atraumatic, EOMI, sclerae anicteric, moist oral mucosa Respiratory: Clear to auscultation bilaterally without crackles, rhonchi or wheezes, nonlabored breathing Cardio: regular rate, regular rhythm with S1-S2 Abdomen: nondistended, normoactive bowel sounds, soft, nontender to palpation Extremities: no edema, erythema, or tenderness to palpation, DP pulses 2+ bilaterally Skin: no rashes or lesions, warm and dry Psych: appropriate mood and affect Objective Data Vital Signs Vital Signs: Vital Signs - 24 hr 12/17/22 14:00 12/17/22 20:31 12/17/22 20:54 Temperature 98.6 F 98.3 F Pulse Rate 66 68 71 Respiratory Rate 16 16 Blood Pressure 138/53 L 134/51 L Pulse Oximetry 99 98 Oxygen Delivery 12/17/22 20:00 12/18/22 05:19 12/18/22 08:29 Temperature 98.8 F Pulse Rate 82 90 Respiratory Rate 20 Blood Pressure 126/58 L Pulse Oximetry 100 Oxygen Delivery Room Air 12/18/22 08:00 Temperature Pulse Rate 90 Respiratory Rate 20 Blood Pressure Pulse Oximetry 100 Oxygen Delivery Room Air Intake/Output Intake/Output: Intake & Output 12/15/22 12/16/22 12/17/22 12/18/22 23:59 23:59 23
[2022-12-18 14:10] VITALS: BP 121/54; PULSE 77; RESP 16; TEMP 36.7; O2SAT 97
[2022-12-18 17:54] LABS: Glucose Point of Care 170 mg/dl (65-105)
[2022-12-18 20:08] VITALS: PULSE 80
[2022-12-18] MEDS: ROSUVASTATIN 10 MG TABLET PO (20:08)
[2022-12-18] MEDS: MELATONIN 5 MG TABLET PO (20:08)
[2022-12-18] MEDS: ESCITALOPRAM OXALATE 10 MG TABLET PO (20:08)
[2022-12-18 20:32] LABS: Glucose Point of Care 253 mg/dl (65-105)
[2022-12-18 21:03] VITALS: BP 130/38; PULSE 71; RESP 16; TEMP 36.4; O2SAT 98
[2022-12-19] MEDS: PIPERACILLN/TAZ 3.375GM/NS50ML 3.375 GM/50 ML BAG IVPB ×2 (03:10→09:40)
[2022-12-19] MEDS: LEVOTHYROXINE SODIUM 75 MCG TABLET PO (05:36)
[2022-12-19 06:00] VITALS: BP 121/46; PULSE 66; RESP 18; TEMP 36.3; O2SAT 98
[2022-12-19 06:38] LABS: Basophils Absolute Auto 0.1 K/mm3 (0.0-0.1); Basophils Percent Auto 0.5 % (0.2-1.2); Eosinophils Absolute Auto 0.4 K/mm3 (0-0.3); Eosinophils Percent Auto 2.7 % (0-4.4); Hematocrit 34.1 % (37.0-47.0); Hemoglobin 10.7 g/dL (12.0-15.0); Immature Granulocyte Absolute 0.34 K/mm3 (0.00-0.031); Immature Granulocyte Percent A 2.1 % (0-0.5); Lymphocytes Absolute Auto 1.83 K/mm3 (0.9-3.2); Lymphocytes Percent Auto 11.1 % (18.3-44.2); Mean Corpuscular HGB Conc 31.4 g/dl (32-36); Mean Corpuscular Hemoglobin 22.4 pg (26-34); Mean Corpuscular Volume 71.5 fl (80-100); Mean Platelet Volume 10.4 fl (7.4-10.4); Monocytes Absolute Auto 3.2 K/mm3 (0.1-0.6); Monocytes Percent Auto 19.4 % (2.6-8.5); Neutrophils Absolute Auto 10.6 K/mm3 (1.3-6.7); Neutrophils Percent Auto 64.2 % (45.5-73.1); Platelet Count Result 370 k/mm3 (150-375); Red Blood Count 4.77 M/mm3 (4.2-5.4); Red Cell Distribution Width 17.9 % (11.5-14.5); White Blood Count 16.5 K/mm3 (4.5-10.0)
[2022-12-19 06:49] LABS: Anion Gap 7 mmol/L (8-16); Blood Urea Nitrogen 19 mg/dL (7-17); Calcium 10.4 mg/dL (8.4-10.2); Carbon Dioxide 20 mmol/L (22-30); Chloride 108 mmol/L (98-107); Estimated CRCL calculation 60 ml/min; Estimated Glomerular Filt Rate > 60; Glucose 155 mg/dL (65-110); Potassium 3.7 mmol/L (3.4-5.0); Sodium 135 mmol/L (137-145)
[2022-12-19 08:49] LABS: Glucose Point of Care 154 mg/dl (65-105)
[2022-12-19] MEDS: INSULIN ASPART (*BKC) 100 UNITS/ML SUB-Q ×3 (09:32→13:23)
[2022-12-19] MEDS: INSULIN GLARGINE (*BKC) 100 UNITS/ML 12 UNITS SUB-Q (09:34)
[2022-12-19] MEDS: oxyBUTYnin CHLORIDE XL 5 MG TAB.ER.24 PO (09:37)
[2022-12-19] MEDS: FUROSEMIDE 40 MG TABLET PO (09:37)
[2022-12-19] MEDS: PANTOPRAZOLE 40 MG TABLET PO (09:37)
[2022-12-19] MEDS: ANASTROZOLE (*CHEMO) 1 MG TABLET PO (09:37)
[2022-12-19 09:38] VITALS: PULSE 70
[2022-12-19] MEDS: FLECAINIDE ACETATE 50 MG TABLET PO (09:38)
[2022-12-19] MEDS: SPIRONOLACTONE 25 MG TABLET PO (09:38)
[2022-12-19] MEDS: POTASSIUM CHLORIDE 20 MEQ ER TABLET PO (09:38)
[2022-12-19] MEDS: busPIRone HCL 5 MG TABLET PO ×2 (09:38→13:27)
[2022-12-19] MEDS: APIXABAN 5 MG TABLET BY MOUTH (09:38)
[2022-12-19] MEDS: DORZOLAMIDE HCL 2% OPHTH DROPS 2 DROP EACH EYE ×2 (09:39→13:21)
[2022-12-19 09:48] LABS: Microcytosis 1+ (NORMAL); Ovalocytes 1+ (NORMAL); Platelet Estimate Adequate (Adequate); Schistocytes None Seen (NORMAL)
--- NOTE | 2022-12-19 11:56 | PM.DS ---
DS: Admitting Diagnosis Discharge Date 12/19/22 Admitting Diagnosis Abdominal pain DS: Discharge Diagnosis Discharge Diagnosis (1) Chronic indwelling Schmitt catheter: Code(s): Z97.8 - Presence of other specified devices Status: Acute (2) UTI (urinary tract infection): Qualifiers: Hematuria presence: with hematuria Urinary tract infection type: acute cystitis Qualified Code(s): N30.01 - Acute cystitis with hematuria Code(s): N39.0 - Urinary tract infection, site not specified Status: Acute (3) Leukocytosis: Qualifiers: Leukocytosis type: unspecified Qualified Code(s): D72.829 - Elevated white blood cell count, unspecified Code(s): D72.829 - Elevated white blood cell count, unspecified Status: Acute (4) Altered mental status: Qualifiers: Altered mental status type: unspecified Qualified Code(s): R41.82 - Altered mental status, unspecified Code(s): R41.82 - Altered mental status, unspecified Status: Acute (5) Suprapubic catheter: Code(s): Z93.59 - Other cystostomy status Status: Acute (6) Hereditary spastic paraplegia: Code(s): 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 Status: Acute (7) Decubitus ulcer of sacral area: Qualifiers: Pressure injury stage: unspecified pressure injury stage Qualified Code(s): L89.159 - Pressure ulcer of sacral region, unspecified stage Code(s): L89.159 - Pressure ulcer of sacral region, unspecified stage Status: Acute DS: Summary Hospital Course Reason for hospitalization: 82-year-old female with insulin-dependent diabetes mellitus, hypothyroidism, dyslipidemia, status post partial colectomy and colostomy placement, chronic indwelling suprapubic catheter, familial hereditary spastic paraplegia, neurogenic bladder, living at a assisted comes back to the hospital due to low ostomy output and abdominal pain. Please see H&P for details. Hospital Course: Patient presented with abdominal pain. CT scan of the abdomen and pelvis showed cystitis with suprapubic catheter in place. She also had focally prominent stool in the rectum. This was seen at the prior hospitalization a few weeks ago by CT scan. She did have bowel movement documented per rectum. She does have a colostomy in place. Urinalysis was consistent with UTI. Blood and urine cultures were collected she was started on Zosyn. C diff by PCR was negative. Sodium was slightly low 133 and this improved. BUN was 37 with normal creatinine. BUN improved. Calcium was mildly elevated but probably related to her chronic bedrest. Troponin negative x2. BNP was 450. Lipase was normal. LFTs normal. White count was 36 K. This did trend downward with treatment. Hemoglobin remained stable in the 9-10 range. She did have elevated immature granulocytes levels as well as a monocytosis. This seems to be more chronic finding. Her elevated white count that persists may be more chronic situations such as CML. Will plan to consult Hematology-Oncology as an outpatient. Patient has a known sacral decubitus ulcer. Wound Care consult was obtained. We continued routine dressing changes. Her blood cultures and urine cultures were negative. Plan to continue antibiotics for a 7 day course. Patient overall did well and was able to return to the assisted on 12/19/2022 Status at Discharge Cognitive/behavioral status at discharge: stable Time Spent with Patient Time attestation: Total time spent providing and/or coordinating discharge services: 36 minutes Time spent: Greater than 30 minutes Exam Narrative: AF 97.4 121/46 70 18 98% ra Gen - NARD Chest - few basilar rhonchi, nml RR CV - RRR S1/S2 with systolic murmur t/o the precordium. Abd - Soft, obese, suprapublic site clean and dry with clear yellow urine in the bag. ostomy mid abdomen with brown stool in bag. Ext - No pedal edema Psych - N
[2022-12-19 12:02] LABS: Glucose Point of Care 226 mg/dl (65-105)
[2022-12-19 14:00] VITALS: BP 142/44; PULSE 74; RESP 16; TEMP 36.9; O2SAT 97
[2022-12-19 15:04] LABS: EDCOVIDSCREEN Negative (Negative)
== END 2022-12-19 16:08 | DRG 698 ==
LOC: ANHED 12-13 01:48 → ANH3MED 12-13 02:23
PROVIDERS: Internal Medicine; Nurse Practitioner; Admitting Provider Internal Medicine; Emergency Provider Emergency Medicine; PCP Family Medicine; Visit Provider Internal Medicine
DX: T83.510A Infection and inflammatory reaction due to cystostomy catheter, initial encounter (principal); E43 Unspecified severe protein-calorie malnutrition; L89.153 Pressure ulcer of sacral region, stage 3; N30.01 Acute cystitis with hematuria; G11.4 Hereditary spastic paraplegia; Z20.822 Contact with and (suspected) exposure to COVID-19; D72.829 Elevated white blood cell count, unspecified; E11.9 Type 2 diabetes mellitus without complications; E03.9 Hypothyroidism, unspecified; E78.5 Hyperlipidemia, unspecified; N31.9 Neuromuscular dysfunction of bladder, unspecified; I25.10 Atherosclerotic heart disease of native coronary artery without angina pectoris; H40.9 Unspecified glaucoma; I48.0 Paroxysmal atrial fibrillation; I11.0 Hypertensive heart disease with heart failure; I50.9 Heart failure, unspecified; K21.9 Gastro-esophageal reflux disease without esophagitis; G47.33 Obstructive sleep apnea (adult) (pediatric); G35 Multiple sclerosis; Z93.3 Colostomy status; Z86.711 Personal history of pulmonary embolism; Z85.3 Personal history of malignant neoplasm of breast; Z68.26 Body mass index [BMI] 26.0-26.9, adult; Z79.4 Long term (current) use of insulin
CPT/HCPCS: 36415; 71045; 74177; 80048; 80053; 81001; 82948; 83605; 83690; 83735; 83880; 84484; 85025; 85027; 85610; 85730; 87040; 87086; 87088; 87426; 87493; 93005; 96361; 96365; 96375; 99285; A9270; C9803; J1815; J2405; J2543; J7030; Q9967

== ENCOUNTER 2023-04-22 15:31 | Emergency (ER) | payer MEDICARE, MEDICAID, SELFPAY ==
[2023-04-22] VITALS (24 sets, daily range): BP systolic 131–147; BP diastolic 50–67; PULSE 82–91; RESP 16–24; TEMP 37.4; O2SAT 94–98
--- NOTE | ~2023-04-22 | XR_ITS ---
XR chest 2V 04/22/2023 16:19 Indication: Cough and chest pain Procedure: 2 view chest Comparison: 08/11/2022 Findings: Cardiomegaly. No focal air space disease, pulmonary edema, pleural effusion or suspected pn eumothorax. There is atherosclerosis of the aorta. No acute osseous abnormality. Impression: 1: No acute cardiopulmonary disease. Reviewed, dictated and finalized at location [facility] Impression: 1: No acute cardiopulmonary disease.
--- NOTE | 2023-04-22 15:52 | ECG_ITS ---
Measurements Intervals [place] Rate: 90 P: -30 [place]: 135 QRS: -56 QRSD: 117 T: 39 QT: 368 QTc: 451 Interpretive Statements SINUS RHYTHM PATTERN CONSISTENT WITH PULMONARY DISEASE LEFT ANTERIOR FASCICULAR BLOCK [QRS AXIS <= -45, QR IN I, RS IN II] MODERATE ST DEPRESSION [0.05+ mV ST DEPRESSION] COMPARED TO ECG 12/12/2022 22:35:28 LEFT ANTERIOR FASCICULAR BLOCK NOW PRESENT ST (T WAVE) DEVIATION NOW PRESENT Electronically Signed On 04-22-2023 20:19:03 [employer] by Yaz Mendoza M.D.
--- NOTE | 2023-04-22 16:05 | ED.CHESTPAIN ---
HPI - Chest Pain General Chief Complaint: Chest Pain Stated Complaint: intermittent chest pain Time Seen by Provider: 04/22/23 15:34 Related Data Home Medications Medication Instructions Recorded Confirmed anastrozole 1 mg tablet 1 mg PO DAILY 03/11/22 04/16/23 apixaban 5 mg tablet (Eliquis) 5 mg PO BID 03/11/22 04/16/23 bromfenac 0.07 % eye drops 1 drp RIGHT EYE DAILY 03/11/22 04/16/23 (Prolensa) cranberry extract 425 mg capsule 425 mg PO DAILY 03/11/22 04/16/23 dorzolamide 2 % eye drops 2 drp EACH EYE TID 03/11/22 04/16/23 esomeprazole magnesium 40 mg 40 mg PO DAILY 03/11/22 04/16/23 capsule,delayed release flecainide 50 mg tablet 50 mg PO BID 03/11/22 04/16/23 levothyroxine 75 mcg tablet 75 mcg PO DAILY 03/11/22 04/16/23 nitroglycerin 0.4 mg sublingual 0.4 mg sublingual PRN PRN Chest 03/11/22 04/16/23 tablet Pain rosuvastatin 10 mg tablet 10 mg PO HS 03/11/22 04/16/23 spironolactone 25 mg tablet 25 mg PO DAILY 03/11/22 04/16/23 buspirone 5 mg tablet 5 mg PO TID 08/11/22 04/16/23 arginine-vitamin C-vitamin E oral 9.2 g PO BID 10/28/22 04/16/23 4.5 gram-156 mg/9.2 gram powder pkt (Arginaid) escitalopram oxalate 10 mg tablet 10 mg PO QHS 10/28/22 04/16/23 acetaminophen 500 mg capsule 1,000 mg PO Q6H PRN pain 11/03/22 04/16/23 bromfenac 0.09 % eye drops 1 drp RIGHT EYE HS 11/03/22 04/16/23 insulin aspart U-100 100 unit/mL 1 sliding scale dose subcut 12/13/22 04/16/23 subcutaneous solution (Novolog USEASDIRECTD U-100 Insulin aspart) insulin aspart U-100 100 unit/mL 5 unit subcut TID 12/13/22 04/16/23 subcutaneous solution (Novolog U-100 Insulin aspart) oxybutynin chloride 5 mg 5 mg PO BID 12/13/22 04/16/23 tablet,extended release 24 hr sitagliptin phosphate 100 mg 100 mg PO DAILY 12/13/22 04/16/23 tablet (Januvia) Allergies Allergy/AdvReac Type Severity Reaction Status Date / Time black pepper Allergy Unknown Verified 12/09/22 13:28 diltiazem Allergy Unknown Verified 12/09/22 13:28 donepezil Allergy Unknown Verified 12/09/22 13:28 fluticasone Allergy Unknown Verified 12/09/22 13:28 metformin Allergy Unknown Verified 12/09/22 13:28 [facility] Past Medical History Medical History (Updated 04/22/23 @ 19:29 by Elenita Palmer MD) Atherosclerotic heart disease Atrial fibrillation Breast cancer Chronic idiopathic constipation Congestive heart failure Familial spastic paraplegia GERD (gastroesophageal reflux disease) Glaucoma Hereditary spastic paraplegia History of pulmonary embolism Hyperparathyroidism Hypertension Hypothyroidism Multiple sclerosis Neurogenic bladder CATY (obstructive sleep apnea) uncompliant with CPAP TIA (transient ischemic attack) Type 2 diabetes mellitus UTI (urinary tract infection) Surgical History Surgical History Chronic suprapubic catheter H/O: hysterectomy S/P colectomy subtotal colectomy with end ileostomy 10/27/22 Family History Family History Father Spastic paralysis Mother Breast cancer Social History Social History Social History: Resides at [facility]. She has 3 daughters. 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 Code status full code Smoking status: Never smoker Second hand tobacco smoke exposure: No Alcohol intake: never Substance use: never Substance use type: does not use Living arrangements: assisted Additional living arrangements comments: [facility] Spiritual care concerns: No Exam Narrative: GENERAL: Well-appearing, well-nourished, and in no acute distress. HEAD: Normocephalic, atraumatic. EYES: Non injected, non icteric ENT: Nares clear, no rhinorrhea or epistaxis. NECK: Supple. CHEST: Clear to auscultation. No respiratory distress. HEART: Regular rate and rhythm. . ABDOMEN: Soft, nondistended. EXTREMITIES: N
[2023-04-22 16:41] LABS: Hemoglobin 11.5 g/dL (12.0-15.0); Mean Corpuscular HGB Conc 29.5 g/dl (32-36); Mean Corpuscular Hemoglobin 19.6 pg (26-34); Mean Corpuscular Volume 66.4 fl (80-100); Mean Platelet Volume 10.5 fl (7.4-10.4); Platelet Count Result 293 k/mm3 (150-375); Red Blood Count 5.87 M/mm3 (4.2-5.4); Red Cell Distribution Width 20.9 % (11.5-14.5); White Blood Count 14.4 K/mm3 (4.5-10.0)
[2023-04-22 16:54] LABS: Prothrombin Time 13.9 Seconds (11.1-14.7)
[2023-04-22 16:55] LABS: Partial Thromboplastin Time 25.6 SECONDS (22.3-36.8)
[2023-04-22 17:02] LABS: Troponin I < 0.012 ng/mL (0.000-0.034)
[2023-04-22 17:13] LABS: Influenza A QL RT-PCR Negative (Negative); Influenza B QL RT-PCR Negative (Negative); SARS-CoV-2 RNA PCR Positive (Negative)
[2023-04-22 17:27] LABS: Alanine Aminotransferase 34 U/L (6-35); Albumin Level 3.6 g/dL (3.5-5.1); Alkaline Phosphatase 113 U/L (38-126); Anion Gap 10 mmol/L (8-16); Aspartate Amino Transferase 38 U/L (14-36); Bilirubin,Total 0.4 mg/dL (0.2-1.3); Blood Urea Nitrogen 14 mg/dL (7-17); Calcium 10.2 mg/dL (8.4-10.2); Carbon Dioxide 20 mmol/L (22-30); Chloride 103 mmol/L (98-107); Estimated CRCL calculation 37 ml/min; Estimated Glomerular Filt Rate > 60; Glucose 265 mg/dL (65-110); Potassium 3.8 mmol/L (3.4-5.0); Sodium 133 mmol/L (137-145)
[2023-04-22 17:27] LABS: Band Neutrophils Percent 1 % (0-6); Eosinophils Absolute Manual 0.43 K/mm3 (0.02-0.5); Eosinophils Percent Manual 3 % (0-4); Lymphocytes Absolute Manual 1.87 K/mm3 (1.1-4.5); Lymphocytes Percent Manual 13 % (18-44); Monocytes Percent Manual 25 % (3-9); Neutrophils Absolute Manual 8.49 K/mm3 (1.7-7.2); Neutrophils Percent Manual 58 % (46-73); Platelet Estimate Adequate (Adequate); Total Cells Counted 100
[2023-04-22 17:28] LABS: Anisocytosis 1+ (NORMAL); Hypochromasia 1+ (NORMAL); Microcytosis 1+ (NORMAL); Ovalocytes 1+ (NORMAL); Schistocytes None Seen (NORMAL)
--- NOTE | 2023-04-22 17:35 | PC.NURSE ---
Pts colostomy bag emptied and flatulence released. Supra pubic catheter intact draining thick yellow urine
[2023-04-22 17:54] LABS: Appearance Urine Turbid (Clear); Bacteria Urine 4+ /hpf; Bilirubin Urine Negative (Negative); Blood Urine Negative (Negative); Color Urine Yellow (Yellow); Glucose Urine UA Trace mg/dL (Negative); Ketones Urine Negative (Negative); Leukocyte Esterase Ur 3+ LEU/UL (Negative); Need Manual Microscopic Reviewed; Nitrate Urine Positive (Negative); Non Pathogenic Casts >20; Protein Urine 1+ mg/dL (Negative); RBC Urine 0-2 /hpf (0-2); Specific Grav Ur 1.016 (1.001-1.035); Squamous Epithelial Cell Urine Occasional /hpf (Few); Triple Phosphate Crystal Urine Present /hpf; Urobilinogen Urine 0.2 mg/dL (<2.0); WBC Urine 51-100 /hpf; pH Urine 8.5 (5.0-9.0)
[2023-04-22 17:56] LABS: Add Urine Microscopic? YES
[2023-04-22 19:38] LABS: Troponin I < 0.012 ng/mL (0.000-0.034)
[2023-04-22] MEDS: CEPHALEXIN 500 MG CAPSULE PO (21:10)
[2023-04-22] MEDS: ACETAMINOPHEN 500 MG TABLET 1000 MG PO (21:10)
[2023-04-22] MEDS: SODIUM CHLORIDE 0.9% IV 1,000 ML 999 ML IV CONT (22:08)
[2023-04-22 22:25] LABS: Troponin I < 0.012 ng/mL (0.000-0.034)
== END 2023-04-22 22:20 ==
PROVIDERS: Emergency Provider Student in an Organized Health Care Education/Training Program; PCP Family Medicine
DX: N39.0 Urinary tract infection, site not specified (principal); Z20.822 Contact with and (suspected) exposure to COVID-19; I48.91 Unspecified atrial fibrillation; I12.9 Hypertensive chronic kidney disease with stage 1 through stage 4 chronic kidney disease, or unspecified chronic kidney disease; E11.22 Type 2 diabetes mellitus with diabetic chronic kidney disease; N18.9 Chronic kidney disease, unspecified; Z79.4 Long term (current) use of insulin; K21.9 Gastro-esophageal reflux disease without esophagitis; E03.9 Hypothyroidism, unspecified; Z87.440 Personal history of urinary (tract) infections; G47.30 Sleep apnea, unspecified
CPT/HCPCS: 36415; 71046; 80053; 81001; 84484; 85025; 85055; 85610; 85730; 87086; 87088; 87636; 93005; 99284; A9270; J7030

== ENCOUNTER 2023-05-11 08:08 | Inpatient (IN) | payer MEDICARE, MEDICAID, SELFPAY ==
[2023-05-11] VITALS (26 sets, daily range): BP systolic 111–149; BP diastolic 42–81; PULSE 58–107; RESP 13–21; TEMP 36.3–36.7; O2SAT 93–100; BMI 26.5
--- NOTE | ~2023-05-11 | CT_ITS ---
EXAMINATION: CT abdomen pelvis w con DATE: 05/11/2023 11:51 INDICATION: Sepsis. Bilateral nephritis. TECHNIQUE: Computed tomography (CT) of the abdomen and pelvis was performed with 100 CC Omnipaque 350 intravenous contrast. Automated exposure control and iterative reconstruction technique were employe d. Exam dose: 848.84 mGy-cm total exam DLP. COMPARISON: 12/12/2022 CT abdomen pelvis FINDINGS: Mild bilateral lower lobe dependent atelectasis, greater on the left. Cardiomegaly. Aortic valve calcification. Prominent mitral annulus calcification. No pericardial or pleural effusion. Surgical clips of the left breast are noted. Status post cholecystectomy. The liver, spleen, pancreas, and adrenal glands and kidneys appear unrem arkable. There is atherosclerotic calcification of the abdominal aorta and branches. No abdominal aortic aneur ysm. No intraperitoneal or retroperitoneal or pelvic mass lesion or adenopathy or ascites is noted. There is a suprapubic catheter in the urinary bladder. There is bladder wall thickening and some stra nding around the bladder which may indicate cystitis. There is resection of most of the colon and ileostomy. Small sliding hiatal hernia. No bowel obstruction or intraperitoneal free air is detected. Right fat-containing inguinal hernia. Prominent degenerative changes of the lumbar spine including multilevel degenerative disc disease and degenerative change at the apophyseal joints. There is mild retrolisthesis at L1-2 and L2-3 as well as L3-4 due to the degenerative disc disease and grade 1 anterolisthesis at L4-5 due to the prominent degenerative changes at the apophyseal joints. No suspicious osteolytic or osteoblastic lesions. IMPRESSION: Suprapubic urinary bladder catheter Prominent diffuse thickening of the urinary bladder wall and pericystic fat stranding suggesting cyst itis Cardiomegaly Status post cholecystectomy Postoperative change of left breast Small sliding hiatal hernia Reviewed, dictated and finalized at [facility]. Reviewed, dictated and finalized at [facility]. MANAGER IMPRESSION: Suprapubic urinary bladder catheter Prominent diffuse thickening of the urinary bladder wall and pericystic fat str anding suggesting cystitis Cardiomegaly Status post cholecystectomy Postoperative change of left breast Small sliding hiatal hernia
--- NOTE | ~2023-05-11 | XR_ITS ---
XR chest 1V portable DATE: 05/11/2023 08:56 INDICATION: Weakness. Cough, chest pain TECHNIQUE: Portable AP chest on 05/07/2023 at 0853 hours COMPARISON: 04/22/2023 2 view chest 12/12/2022 portable AP chest FINDINGS: There is left retrocardiac infiltrate and/atelectasis, left lower lobe. The lungs otherwise appear clear. No pleural effusion or pulmonary mass congestion or pneumothorax is detected. There is prominent aortic arch calcification. Heart size is borderline. Osteopenia. Osteoarthritis at both glenohumeral joints. Dextro scoliosis and degenerative spurring of the thoracic spine. IMPRESSION: Left lower lobe infiltrate and/or atelectasis Reviewed, dictated and finalized at [facility]. 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
--- NOTE | 2023-05-11 08:37 | ECG_ITS ---
Measurements Intervals [place] Rate: 83 P: 50 RI: 169 QRS: -57 QRSD: 110 T: 60 QT: 378 QTc: 444 Interpretive Statements SINUS RHYTHM PATTERN CONSISTENT WITH PULMONARY DISEASE LEFT ANTERIOR FASCICULAR BLOCK [QRS AXIS <= -45, QR IN I, RS IN II] MINIMAL ST DEPRESSION [0.025+ mV ST DEPRESSION] COMPARED TO ECG 04/22/2023 15:43:46 NO SIGNIFICANT CHANGES Electronically Signed On 05-11-2023 17:11:12 [employer]ER [employer] by Yaz Mendoza M.D.
[2023-05-11 08:45] LABS: Glucose Point of Care 272 mg/dl (65-105)
[2023-05-11 08:52] LABS: Immature Platelet Fraction Pct 4.1 % (0.9-11.2); Mean Corpuscular HGB Conc 28.9 g/dl (32-36); Mean Corpuscular Hemoglobin 19.7 pg (26-34); Mean Corpuscular Volume 68.1 fl (80-100); Mean Platelet Volume 10.5 fl (7.4-10.4); Platelet Count Result 463 k/mm3 (150-375); Red Blood Count 6.61 M/mm3 (4.2-5.4); White Blood Count 37.9 K/mm3 (4.5-10.0)
[2023-05-11] MEDS: ONDANSETRON INJ 4 MG/2 ML VIAL IV PUSH ×2 (08:58→14:42)
[2023-05-11] MEDS: SODIUM CHLORIDE 0.9% IV 500 ML 999 ML IV CONT (08:58)
[2023-05-11 09:02] LABS: Magnesium 2.2 mg/dL (1.6-2.3)
[2023-05-11 09:26] LABS: Influenza A QL RT-PCR Negative (Negative); Influenza B QL RT-PCR Negative (Negative); RSV RNA, RT-PCR Negative (Negative); SARS-CoV-2 RNA PCR Positive (Negative)
[2023-05-11 09:31] LABS: Platelet Estimate Adequate (Adequate); Schistocytes None Seen (NORMAL)
[2023-05-11 09:32] LABS: Anisocytosis 1+ (NORMAL); Hypochromasia 1+ (NORMAL); Ovalocytes 1+ (NORMAL); Poikilocytosis 1+ (NORMAL)
[2023-05-11 09:33] LABS: Atypical Lymphocytes Present
[2023-05-11 11:09] LABS: Lactic Acid Reflex 1.8 mmol/L (0.7-2.0)
[2023-05-11 11:13] LABS: Alanine Aminotransferase 29 U/L (6-35); Albumin Level 4.1 g/dL (3.5-5.1); Alkaline Phosphatase 160 U/L (38-126); Anion Gap 12 mmol/L (8-16); Aspartate Amino Transferase 29 U/L (14-36); Bilirubin,Total 0.6 mg/dL (0.2-1.3); Blood Urea Nitrogen 23 mg/dL (7-17); Calcium 11.3 mg/dL (8.4-10.2); Carbon Dioxide 14 mmol/L (22-30); Chloride 111 mmol/L (98-107); Estimated Glomerular Filt Rate > 60; Glucose 257 mg/dL (65-110); Potassium 5.2 mmol/L (3.4-5.0); Sodium 137 mmol/L (137-145)
[2023-05-11] MEDS: SODIUM CHLORIDE 0.9% IV 1,000 ML 999 ML IV CONT (11:27)
--- NOTE | 2023-05-11 14:00 | PM.IMHP ---
H&P: HPI History of Present Illness Date/Time: 05/11/23 14:00 Chief Complaint: Suprapubic catheter not draining. Narrative: This is an 82-year-old female with history of neurogenic bladder status status post suprapubic catheter, multiple sclerosis, dementia, paroxysmal atrial fibrillation on chronic anticoagulation, pulmonary embolism, breast cancer, hypertension, insulin-dependent type 2 diabetes mellitus, hypothyroidism, hyperparathyroidism, and other comorbidities presented to the emergency department via EMS from [facility] with reports that her suprapubic catheter was not draining. The patient provides the following history though some of the following is supplemented via a review of her EMR as she has evidence of memory loss. Last night she was not feeling well with nausea and reports having a couple of episodes of emesis. This morning it was noted that her suprapubic catheter was not draining and she was sent in for evaluation. The patient herself had no complaints on arrival. Her suprapubic catheter was changed out by the ED physician and is draining. UA was nitrate and leukocyte esterase positive with 4+ bacteria. Her labs were significant for WBC count of 37.9, potassium 5.2, chloride 111, carbon dioxide 14, anion gap 12, BUN 23, creatinine 0.60, calcium 11.3. She was given a dose of ceftriaxone and 2 L normal saline and she is being admitted in this setting for further treatment. At the time my evaluation she has no complaints and denies fever, chills, sweats, cold and flu symptoms, chest pain, shortness of breath, and current nausea and vomiting. 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 Review of Systems Review of Systems: Twelve systems were reviewed and are negative except for as per HPI. [facility] Past Medical History Medical History Atherosclerotic heart disease Atrial fibrillation Breast cancer Chronic anticoagulation Chronic idiopathic constipation Congestive heart failure Familial spastic paraplegia Gastroesophageal reflux disease Glaucoma Hereditary spastic paraplegia History of pulmonary embolism Hyperparathyroidism Hypertension Hypothyroidism Multiple sclerosis Suprapubic catheter in place. Neurogenic bladder Obstructive sleep apnea Noncompliant with CPAP. 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 History of hysterectomy History of suprapubic catheter Family History Family History Father Spastic paralysis Mother Breast cancer Social History Social History Social History: Surrogate medical decision maker: Ange Reyes or Nancymainor John, daughters. Code status: Full code. Smoking status: Never smoker Second hand tobacco smoke exposure: No Alcohol intake: never Substance use: never Substance use type: does not use Living [facility] Additional living arrangements comments: [facility]. Has 3 daughters. Additional occupation/education comments: [employer]. Spiritual care concerns: No Meds Home Medications and Allergies Home Medications Medication Instructions Recorded Confirmed Type anastrozole 1 mg tablet 1 mg PO DAILY 03/11/22 05/11/23 History apixaban 5 mg tablet (Eliquis) 5 mg PO BID 03/11/22 05/11/23 History cranberry extract 425 mg capsule 425 mg PO DAILY 03/11/22 05/11/23 History dorzolamide 2 % eye drops 2 drp EACH EYE TID 03/11/22 05/11/23 History esomeprazole magnesium 40 mg 40 mg PO DAILY 03/11/22 05/11/23 History capsule,delayed release flecainide 50 mg tablet 50 mg PO
[2023-05-11 14:26] LABS: Appearance Urine Cloudy (Clear); Bacteria Urine 4+ /hpf; Bilirubin Urine Negative (Negative); Blood Urine 1+ (Negative); Color Urine Dark Yellow (Yellow); Glucose Urine UA Negative (Negative); Ketones Urine Negative (Negative); Leukocyte Esterase Ur 1+ LEU/UL (Negative); Need Manual Microscopic Reviewed; Nitrate Urine Positive (Negative); Non Pathogenic Casts 0-2; Protein Urine 1+ mg/dL (Negative); Squamous Epithelial Cell Urine None seen /hpf (Few); WBC Urine 51-100 /hpf
[2023-05-11 14:27] LABS: Add Urine Microscopic? YES; Specific Grav Ur 1.073 (1.001-1.035)
--- NOTE | 2023-05-11 14:59 | PC.NURSE ---
New supra pubic 16fr olivas cath inserted by Dr Prater. Pt tolerated well olivas draining dark yellow urine.
--- NOTE | 2023-05-11 15:25 | ADMGEN ---
This patient, Perla Leon, was admitted to 2 Medical Room 242-. Patient/family oriented to hospital policies and general routines including ID bracelet, bed and alarms, visiting hours, pain management, procedures, bathroom and other care routines, personal items, smoking policy, room service/diet, and visiting hours. Information on how to activate the Rapid Response Team has been discussed. Patient/Family are encouraged to report perceived risks to care and to ask questions if they do not understand what they are told or what they should do.
--- NOTE | 2023-05-11 15:43 | PC.NURSE ---
Pt admitted today with positive covid test. Daughter at bedside clarifies is confirmed by ER MD note on 04/22/2023 in Discharge Plan as covid positive at that time. Pt is thus 19 post positive testing, we will not initiate covid isolation unless further instructed by Infection Control Nurse or provider.
[2023-05-11] MEDS: SODIUM CHLORIDE 0.9% IV 1,000 ML 125 ML IV CONT (16:04)
[2023-05-11] MEDS: REMDESIVIR 200 MG/NS 250 ML 200 MG/250 ML BAG 250 MG IVPB (16:25)
[2023-05-11 16:54] LABS: Fractional Inspired Oxygen 21 %; HCO3 VBG 11.3 mEq/l (24.0-30.0); pH VBG 7.293 (7.300-7.400)
[2023-05-11 16:55] LABS: PCO2 VBG 23.9 mmHg (42.0-48.0)
[2023-05-11 16:57] LABS: Device ROOM AIR
[2023-05-11 17:07] LABS: Potassium Urine Random 60.5 meq/L
[2023-05-11 17:08] LABS: Sodium Urine Random < 5 meq/L
[2023-05-11 17:12] LABS: Glucose Point of Care 283 mg/dl (65-105)
[2023-05-11] MEDS: INSULIN ASPART (*BKC) 100 UNITS/ML SUB-Q (17:17)
[2023-05-11] MEDS: CEFEPIME 2 GM/NS 50 ML 2 GM/50 ML BAG IVPB (17:18)
--- NOTE | 2023-05-11 17:44 | ED.GENADULT ---
HPI - General Adult General Chief complaint: Urogenital-Female Stated complaint: n/v, cath problems Time Seen by Provider: 05/11/23 08:12 Source: patient, family, RN notes reviewed and old records reviewed Mode of arrival: EMS History of Present Illness HPI narrative: This is an 82 year old female with multiple medical problems including chronic indwelling suprapubic catheter who presents for evaluation of nausea, vomiting and decreased suprapubic catheter output. Her daughter states patient started having nausea and vomiting last night. They have also noticed no urine output of her catheter since last night. PAtient denies abdominal pain, fever, chills. She denies diarrhea. Patient also having weakness. She was found to be positive for covid 2-3 weeks ago so patient has continued cough. Related Data Home Medications Medication Instructions Recorded Confirmed anastrozole 1 mg tablet 1 mg PO DAILY 03/11/22 05/11/23 apixaban 5 mg tablet (Eliquis) 5 mg PO BID 03/11/22 05/11/23 cranberry extract 425 mg capsule 425 mg PO DAILY 03/11/22 05/11/23 dorzolamide 2 % eye drops 2 drp EACH EYE TID 03/11/22 05/11/23 esomeprazole magnesium 40 mg 40 mg PO DAILY 03/11/22 05/11/23 capsule,delayed release flecainide 50 mg tablet 50 mg PO BID 03/11/22 05/11/23 levothyroxine 75 mcg tablet 75 mcg PO DAILY 03/11/22 05/11/23 nitroglycerin 0.4 mg sublingual 0.4 mg sublingual PRN PRN Chest 03/11/22 05/11/23 tablet Pain rosuvastatin 10 mg tablet 10 mg PO HS 03/11/22 05/11/23 spironolactone 25 mg tablet 25 mg PO DAILY 03/11/22 05/11/23 buspirone 5 mg tablet 5 mg PO TID 08/11/22 05/11/23 arginine-vitamin C-vitamin E oral 9.2 g PO BID 10/28/22 05/11/23 4.5 gram-156 mg/9.2 gram powder pkt (Arginaid) escitalopram oxalate 10 mg tablet 10 mg PO QHS 10/28/22 05/11/23 acetaminophen 500 mg capsule 1,000 mg PO Q6H PRN pain 11/03/22 05/11/23 bromfenac 0.09 % eye drops 1 drp RIGHT EYE HS 11/03/22 05/11/23 insulin aspart U-100 100 unit/mL 1 sliding scale dose subcut 12/13/22 05/11/23 subcutaneous solution (Novolog USEASDIRECTD U-100 Insulin aspart) insulin aspart U-100 100 unit/mL 7 unit subcut TID 12/13/22 05/11/23 subcutaneous solution (Novolog U-100 Insulin aspart) Antacid (calcium carbonate) 500 mg BYMOUTH PRN 05/11/23 05/11/23 Saccharomyces boulardii 250 mg 250 mg PO BID 05/11/23 05/11/23 capsule (Florastor) acetic acid 0.25 % irrigation See Rx Instructions .Route .COMPLEX 05/11/23 05/11/23 solution clobetasol 1 dose topical BID 05/11/23 05/11/23 collagenase clostridium histo. 250 1 applic topical DAILY 05/11/23 05/11/23 unit/gram topical ointment (Santyl) hyoscyamine sulfate 0.125 mg tablet 0.125 mg PO PRN 05/11/23 05/11/23 insulin glargine 100 unit/mL (3 25 unit subcut Q12H 05/11/23 05/11/23 mL) subcutaneous pen (Lantus Solostar U-100 Insulin) mirabegron 50 mg tablet,extended 50 mg PO DAILY 05/11/23 05/11/23 release 24 hr (Myrbetriq) mupirocin 2 % topical DAILY 05/11/23 05/11/23 nystatin 100,000 unit/gram topical 1 applic topical BID 05/11/23 05/11/23 cream phenazopyridine 200 mg tablet 200 mg PO TID 05/11/23 05/11/23 (Pyridium) Allergies Allergy/AdvReac Type Severity Reaction Status Date / Time black pepper Allergy Unknown Verified 12/09/22 13:28 diltiazem Allergy Unknown Verified 12/09/22 13:28 donepezil Allergy Unknown Verified 12/09/22 13:28 fluticasone Allergy Unknown Verified 12/09/22 13:28 metformin Allergy Unknown Verified 12/09/22 13:28 Review of Systems Constitutional: Constitutional: Reports weakness Cardiovascular: Cardiovascular: Denies syncope, Denies rapid heart rate, Denies irregular heart rhythm, Denies leg edema and Denies dyspnea Respiratory: Respiratory: Denies chest congestion, Reports cough, Denies hemoptysis, Denies excessive phlegm production and Denies dyspnea Gastrointestinal: Gastrointestinal: Denies abdominal pain, Denies hematochezia, Denies diarrhea, Reports nausea and Reports
[2023-05-11 17:47] LABS: Hemoglobin A1C 9.3 % (<5.7)
[2023-05-11 17:50] LABS: Anion Gap 17 mmol/L (8-16); Blood Urea Nitrogen 23 mg/dL (7-17); Calcium 11.2 mg/dL (8.4-10.2); Carbon Dioxide 8 mmol/L (22-30); Chloride 115 mmol/L (98-107); Estimated CRCL calculation 53 ml/min; Estimated Glomerular Filt Rate > 60; Glucose 284 mg/dL (65-110); Potassium 5.2 mmol/L (3.4-5.0); Sodium 140 mmol/L (137-145)
[2023-05-11 19:54] LABS: INR 1.2; Prothrombin Time 16.3 Seconds (11.1-14.7)
[2023-05-11 20:15] LABS: Glucose Point of Care 191 mg/dl (65-105)
[2023-05-11] MEDS: SODIUM BICARBONATE 8.4% 150 MEQ in WATER, STERILE FOR INJECTION 950 ML IV CONT (20:37)
[2023-05-11] MEDS: INSULIN GLARGINE (*BKC) 100 UNITS/ML SUB-Q (22:37)
[2023-05-11 23:05] LABS: Toxigenic C. Diff NEGATIVE (NEGATIVE)
[2023-05-12] VITALS (10 sets, daily range): BP systolic 111–121; BP diastolic 40–46; PULSE 72–83; RESP 12–18; TEMP 36.4–37.1; O2SAT 91–96
[2023-05-12] MEDS: MELATONIN 5 MG TABLET PO ×2 (00:35→20:49)
[2023-05-12] MEDS: CEFEPIME 2 GM/NS 50 ML 2 GM/50 ML BAG IVPB ×2 (05:23→17:42)
[2023-05-12] MEDS: LEVOTHYROXINE SODIUM 75 MCG TABLET PO (05:23)
[2023-05-12 05:43] LABS: Basophils Absolute Auto 0.1 K/mm3 (0.0-0.1); Basophils Percent Auto 0.3 % (0.2-1.2); Eosinophils Absolute Auto 0.1 K/mm3 (0-0.3); Eosinophils Percent Auto 0.3 % (0-4.4); Hematocrit 34.3 % (37.0-47.0); Hemoglobin 10.2 g/dL (12.0-15.0); Immature Granulocyte Absolute 0.36 K/mm3 (0.00-0.031); Immature Granulocyte Percent A 1.3 % (0-0.5); Immature Platelet Fraction Pct 4.1 % (0.9-11.2); Lymphocytes Absolute Auto 1.16 K/mm3 (0.9-3.2); Lymphocytes Percent Auto 4.1 % (18.3-44.2); Mean Corpuscular HGB Conc 29.7 g/dl (32-36); Mean Corpuscular Hemoglobin 19.9 pg (26-34); Mean Platelet Volume 10.4 fl (7.4-10.4); Monocytes Absolute Auto 4.1 K/mm3 (0.1-0.6); Monocytes Percent Auto 14.5 % (2.6-8.5); Neutrophils Absolute Auto 22.7 K/mm3 (1.3-6.7); Neutrophils Percent Auto 79.5 % (45.5-73.1); Platelet Count Result 352 k/mm3 (150-375); Red Blood Count 5.12 M/mm3 (4.2-5.4); Red Cell Distribution Width 21.1 % (11.5-14.5); White Blood Count 28.5 K/mm3 (4.5-10.0)
[2023-05-12 06:00] LABS: Alanine Aminotransferase 22 U/L (6-35); Alkaline Phosphatase 109 U/L (38-126); Anion Gap 7 mmol/L (8-16); Aspartate Amino Transferase 21 U/L (14-36); Bilirubin,Total 0.6 mg/dL (0.2-1.3); Blood Urea Nitrogen 18 mg/dL (7-17); Calcium 10.4 mg/dL (8.4-10.2); Carbon Dioxide 22 mmol/L (22-30); Chloride 101 mmol/L (98-107); Estimated CRCL calculation 53 ml/min; Estimated Glomerular Filt Rate > 60; Glucose 124 mg/dL (65-110); Potassium 3.6 mmol/L (3.4-5.0); Sodium 130 mmol/L (137-145)
[2023-05-12 06:05] LABS: Hypochromasia 1+ (NORMAL); Platelet Estimate Adequate (Adequate)
[2023-05-12 06:06] LABS: Anisocytosis 1+ (NORMAL); Schistocytes None Seen (NORMAL)
[2023-05-12 08:24] LABS: Glucose Point of Care 113 mg/dl (65-105)
[2023-05-12] MEDS: SACCHAROMYCES BOULARDII 250 MG CAPSULE PO ×2 (09:00→17:42)
[2023-05-12] MEDS: SODIUM BICARBONATE TAB 650 MG TABLET PO (09:00)
[2023-05-12] MEDS: APIXABAN 5 MG TABLET PO ×2 (09:00→20:49)
[2023-05-12] MEDS: FLECAINIDE ACETATE 50 MG TABLET PO ×2 (09:00→20:49)
[2023-05-12] MEDS: busPIRone HCL 5 MG TABLET PO ×3 (09:00→17:42)
[2023-05-12] MEDS: PANTOPRAZOLE 40 MG TABLET PO (09:00)
[2023-05-12] MEDS: COLLAGENASE OINT 30 GM TUBE 1 APPLIC TOPICAL (09:01)
[2023-05-12] MEDS: ANASTROZOLE (*CHEMO) 1 MG TABLET PO (09:01)
[2023-05-12] MEDS: DORZOLAMIDE HCL 2% OPHTH DROPS 2 DROP EACH EYE ×3 (09:02→17:43)
[2023-05-12] MEDS: MICONAZOLE NITRATE 2% CREAM 30 GM TUBE 1 APPLIC TOPICAL ×2 (09:02→20:50)
[2023-05-12] MEDS: MUPIROCIN 2% OINT 22 GM TUBE 1 APPLIC TOPICAL (09:02)
[2023-05-12] MEDS: CLOBETASOL PROPIONATE 0.05% CREAM 30 GM 1 APPLIC TOPICAL ×2 (09:03→20:50)
[2023-05-12] MEDS: MIRABEGRON 50 MG ER TABLET PO (09:03)
[2023-05-12] MEDS: INSULIN GLARGINE (*BKC) 100 UNITS/ML 25 UNITS SUB-Q (09:41)
--- NOTE | 2023-05-12 11:07 | P.PNIM_ITS ---
Progress Note: A&P Assessment and Plan (1) Complicated urinary tract infection: Code(s): N39.0 - Urinary tract infection, site not specified Status: Acute Assessment and Plan: * Suprapubic catheter was not draining and was changed per ED physician upon arrival. * UA with pyuria and nitrate/leukocyte esterase positive; received ceftriaxone 1 g x 1 in ED. * Change to cefepime 2 g q.8 hours given history of Pseudomonas and intermediate carbapenem resistant Proteus. * Urine and blood cultures are pending. (2) Hyperchloremic acidosis: Code(s): E87.29 - Other acidosis Status: Acute Assessment and Plan: * Patient has a hyperchloremic non-anion gap acidosis dating back several months. * This was following her subtotal colectomy and is likely due to ongoing bicarbonate loss from diarrhea. * 05/11 Infuse 1 L of fluids containing 150 mEq sodium bicarbonate. (3) Hyperkalemia: Code(s): E87.5 - Hyperkalemia Status: Acute Assessment and Plan: * Likely related to the acidosis. * Resolved. (4) Dehydration: Code(s): E86.0 - Dehydration Status: Acute Assessment and Plan: * Continue judicious IV fluid rehydration. * Monitor volume status closely with strict I/O and daily weights. (5) COVID: Code(s): U07.1 - COVID-19 Status: Acute Assessment and Plan: * Patient was diagnosed with COVID on 04/22/2023. * She continues to test positive for the same but is asymptomatic. * No indication for isolation or treatment at this time. (6) Type 2 diabetes mellitus: Qualifiers: Diabetes mellitus jail insulin use: with jail use Diabetes mellitus complication status: without complication Qualified Code(s): E11.9 - Type 2 diabetes mellitus without complications; Z79.4 - halfway (current) use of insulin Code(s): E11.9 - Type 2 diabetes mellitus without complications Status: Acute Assessment and Plan: * Random glucose was 284 and A1c today was 9.3%. * Continue basal insulin (Lantus U 100 25 units q.12 hours). * Initiate sliding scale insulin, Accu-Cheks, and hypoglycemic protocol. (7) Hyperparathyroidism: Code(s): E21.3 - Hyperparathyroidism, unspecified Status: Acute Assessment and Plan: * Calcium bit higher than usual at 11.3 on admission. * Expect some improvement with IV fluids. * improved to 10.4 (8) Paroxysmal atrial fibrillation: Code(s): I48.0 - Paroxysmal atrial fibrillation Status: Acute Assessment and Plan: * Currently sounds to be in a normal sinus rhythm. * Continue flecainide 50 mg p.o. b.i.d.. (9) Chronic anticoagulation: Code(s): Z79.01 - intermodal dispatcher (current) use of anticoagulants Status: Acute Assessment and Plan: Continue Eliquis for stroke prophylaxis. (10) Blocked suprapubic catheter: Qualifiers: Encounter type: initial encounter Qualified Code(s): T83.090A - Other mechanical complication of cystostomy catheter, initial encounter Code(s): T83.090A - Other mechanical complication of cystostomy catheter, initial encounter Status: Acute Assessment and Plan: Suprapubic catheter was exchanged per ED physician as detailed above. Subjective Date/time seen: 05/12/23 11:07 Interval history: patient doing well to
--- NOTE | 2023-05-12 11:07 | PM.IMPN ---
Progress Note: A&P Assessment and Plan (1) Complicated urinary tract infection: Code(s): N39.0 - Urinary tract infection, site not specified Status: Acute Assessment and Plan: Suprapubic catheter was not draining and was changed per ED physician upon arrival. UA with pyuria and nitrate/leukocyte esterase positive; received ceftriaxone 1 g x 1 in ED. Change to cefepime 2 g q.8 hours given history of Pseudomonas and intermediate carbapenem resistant Proteus. Urine and blood cultures are pending. (2) Hyperchloremic acidosis: Code(s): E87.29 - Other acidosis Status: Acute Assessment and Plan: Patient has a hyperchloremic non-anion gap acidosis dating back several months. This was following her subtotal colectomy and is likely due to ongoing bicarbonate loss from diarrhea. 05/11 Infuse 1 L of fluids containing 150 mEq sodium bicarbonate. (3) Hyperkalemia: Code(s): E87.5 - Hyperkalemia Status: Acute Assessment and Plan: Likely related to the acidosis. Resolved. (4) Dehydration: Code(s): E86.0 - Dehydration Status: Acute Assessment and Plan: Continue judicious IV fluid rehydration. Monitor volume status closely with strict I/O and daily weights. (5) COVID: Code(s): U07.1 - COVID-19 Status: Acute Assessment and Plan: Patient was diagnosed with COVID on 04/22/2023. She continues to test positive for the same but is asymptomatic. No indication for isolation or treatment at this time. (6) Type 2 diabetes mellitus: Qualifiers: Diabetes mellitus usp insulin use: with usp use Diabetes mellitus complication status: without complication Qualified Code(s): E11.9 - Type 2 diabetes mellitus without complications; Z79.4 - alf (current) use of insulin Code(s): E11.9 - Type 2 diabetes mellitus without complications Status: Acute Assessment and Plan: Random glucose was 284 and A1c today was 9.3%. Continue basal insulin (Lantus U 100 25 units q.12 hours). Initiate sliding scale insulin, Accu-Cheks, and hypoglycemic protocol. (7) Hyperparathyroidism: Code(s): E21.3 - Hyperparathyroidism, unspecified Status: Acute Assessment and Plan: Calcium bit higher than usual at 11.3 on admission. Expect some improvement with IV fluids. improved to 10.4 (8) Paroxysmal atrial fibrillation: Code(s): I48.0 - Paroxysmal atrial fibrillation Status: Acute Assessment and Plan: Currently sounds to be in a normal sinus rhythm. Continue flecainide 50 mg p.o. b.i.d.. (9) Chronic anticoagulation: Code(s): Z79.01 - alf (current) use of anticoagulants Status: Acute Assessment and Plan: Continue Eliquis for stroke prophylaxis. (10) Blocked suprapubic catheter: Qualifiers: Encounter type: initial encounter Qualified Code(s): T83.090A - Other mechanical complication of cystostomy catheter, initial encounter Code(s): T83.090A - Other mechanical complication of cystostomy catheter, initial encounter Status: Acute Assessment and Plan: Suprapubic catheter was exchanged per ED physician as detailed above. Subjective Date/time seen: 05/12/23 11:07 Interval history: patient doing well today and denies any issues at this time. She is not having any abdominal pain, nausea, vomiting, back pain, chest pain or shortness of breath. Explained to her and family at bedside we will await urine culture results as well as rehydrate her. Exam Narrative: GENERAL: Comfortable, no acute distress HENMT: moist mucous membranes EYES: EOM intact b/l NECK: no lymphadenopathy RESPIRATORY: clear to auscultation CARDIO: RRR GI: soft, nontender, bowel sounds present SKIN: no rashes EXTREMITIES: no edema, Waffle boots on Objective Data Radhika
[2023-05-12 12:12] LABS: Glucose Point of Care 188 mg/dl (65-105)
[2023-05-12] MEDS: ACETIC ACID 0.25% IRRIG SOLN 500 ML 30 ML IRRIGATION (13:24)
[2023-05-12 16:46] LABS: Glucose Point of Care 152 mg/dl (65-105)
[2023-05-12] MEDS: ACETAMINOPHEN 325 MG TABLET 650 MG PO (17:47)
[2023-05-12 20:42] LABS: Glucose Point of Care 174 mg/dl (65-105)
[2023-05-12] MEDS: INSULIN GLARGINE (*BKC) 100 UNITS/ML SUB-Q (20:45)
[2023-05-12] MEDS: ROSUVASTATIN 10 MG TABLET PO (20:49)
[2023-05-12] MEDS: ESCITALOPRAM OXALATE 10 MG TABLET PO (20:49)
[2023-05-13] VITALS: PULSE 69
[2023-05-13 04:00] VITALS: PULSE 66
[2023-05-13 05:45] VITALS: BP 113/41; PULSE 65; RESP 18; TEMP 36.6; O2SAT 94
[2023-05-13] MEDS: CEFEPIME 2 GM/NS 50 ML 2 GM/50 ML BAG IVPB ×2 (06:12→14:51)
[2023-05-13] MEDS: LEVOTHYROXINE SODIUM 75 MCG TABLET PO (06:13)
[2023-05-13 06:45] LABS: Hematocrit 37.3 % (37.0-47.0); Hemoglobin 10.8 g/dL (12.0-15.0); Mean Corpuscular Hemoglobin 19.7 pg (26-34); Mean Corpuscular Volume 67.9 fl (80-100); Mean Platelet Volume 10.2 fl (7.4-10.4); Platelet Count Result 308 k/mm3 (150-375); Red Blood Count 5.49 M/mm3 (4.2-5.4); Red Cell Distribution Width 21.6 % (11.5-14.5); White Blood Count 11.9 K/mm3 (4.5-10.0)
[2023-05-13 06:56] LABS: INR 1.4; Prothrombin Time 17.7 Seconds (11.1-14.7)
[2023-05-13 07:01] LABS: Alanine Aminotransferase 21 U/L (6-35); Albumin Level 3.2 g/dL (3.5-5.1); Alkaline Phosphatase 121 U/L (38-126); Aspartate Amino Transferase 19 U/L (14-36); Bilirubin,Total 0.4 mg/dL (0.2-1.3)
[2023-05-13 07:03] LABS: Alanine Aminotransferase 20 U/L (6-35); Albumin Level 3.1 g/dL (3.5-5.1); Alkaline Phosphatase 111 U/L (38-126); Anion Gap 6 mmol/L (8-16); Aspartate Amino Transferase 21 U/L (14-36); Bilirubin,Total 0.3 mg/dL (0.2-1.3); Blood Urea Nitrogen 15 mg/dL (7-17); Calcium 10.3 mg/dL (8.4-10.2); Carbon Dioxide 22 mmol/L (22-30); Chloride 106 mmol/L (98-107); Estimated CRCL calculation 63 ml/min; Estimated Glomerular Filt Rate > 60; Glucose 150 mg/dL (65-110); Potassium 3.8 mmol/L (3.4-5.0); Sodium 134 mmol/L (137-145)
[2023-05-13 08:00] LABS: Glucose Point of Care 163 mg/dl (65-105)
[2023-05-13 08:27] VITALS: PULSE 65
[2023-05-13] MEDS: INSULIN GLARGINE (*BKC) 100 UNITS/ML 25 UNITS SUB-Q (08:27)
[2023-05-13] MEDS: SACCHAROMYCES BOULARDII 250 MG CAPSULE PO ×2 (08:27→17:47)
[2023-05-13] MEDS: MIRABEGRON 50 MG ER TABLET PO (08:27)
[2023-05-13] MEDS: FLECAINIDE ACETATE 50 MG TABLET PO (08:27)
[2023-05-13] MEDS: APIXABAN 5 MG TABLET PO (08:27)
[2023-05-13] MEDS: ANASTROZOLE (*CHEMO) 1 MG TABLET PO (08:27)
[2023-05-13] MEDS: COLLAGENASE OINT 30 GM TUBE 1 APPLIC TOPICAL (08:28)
[2023-05-13] MEDS: PANTOPRAZOLE 40 MG TABLET PO (08:28)
[2023-05-13] MEDS: MUPIROCIN 2% OINT 22 GM TUBE 1 APPLIC TOPICAL (08:28)
[2023-05-13] MEDS: CLOBETASOL PROPIONATE 0.05% CREAM 30 GM 1 APPLIC TOPICAL (08:28)
[2023-05-13] MEDS: MICONAZOLE NITRATE 2% CREAM 30 GM TUBE 1 APPLIC TOPICAL (08:28)
[2023-05-13] MEDS: busPIRone HCL 5 MG TABLET PO ×3 (08:28→17:47)
[2023-05-13] MEDS: DORZOLAMIDE HCL 2% OPHTH DROPS 2 DROP EACH EYE ×3 (08:29→17:47)
--- NOTE | 2023-05-13 09:21 | P.PNIM_ITS ---
Progress Note: A&P Assessment and Plan (1) Complicated urinary tract infection: Code(s): N39.0 - Urinary tract infection, site not specified Status: Acute Assessment and Plan: * Suprapubic catheter was not draining and was changed per ED physician upon arrival. * UA with pyuria and nitrate/leukocyte esterase positive; received ceftriaxone 1 g x 1 in ED. * Change to cefepime 2 g q.8 hours given history of Pseudomonas and intermediate carbapenem resistant Proteus. * Urine culture positive for Gram-negative bacilli. * Blood cultures no growth to date. (2) Hyperchloremic acidosis: Code(s): E87.29 - Other acidosis Status: Acute Assessment and Plan: * Patient has a hyperchloremic non-anion gap acidosis dating back several months. * This was following her subtotal colectomy and is likely due to ongoing bicarbonate loss from diarrhea. * 05/11 Infuse 1 L of fluids containing 150 mEq sodium bicarbonate. (3) Hyperkalemia: Code(s): E87.5 - Hyperkalemia Status: Acute Assessment and Plan: * Likely related to the acidosis. * Resolved. (4) Dehydration: Code(s): E86.0 - Dehydration Status: Acute Assessment and Plan: * Monitor volume status closely with strict I/O and daily weights. * IV fluids discontinued. (5) COVID: Code(s): U07.1 - COVID-19 Status: Acute Assessment and Plan: * Patient was diagnosed with COVID on 04/22/2023. * She continues to test positive for the same but is asymptomatic. * No indication for isolation or treatment at this time. (6) Type 2 diabetes mellitus: Qualifiers: Diabetes mellitus tank terminal gauger insulin use: with tank terminal gauger use Diabetes mellitus complication status: without complication Qualified Code(s): E11.9 - Type 2 diabetes mellitus without complications; Z79.4 - terminal clerk (current) use of insulin Code(s): E11.9 - Type 2 diabetes mellitus without complications Status: Acute Assessment and Plan: * Random glucose was 284 and A1c today was 9.3%. * Continue basal insulin (Lantus U 100 25 units q.12 hours). * Initiate sliding scale insulin, Accu-Cheks, and hypoglycemic protocol. (7) Hyperparathyroidism: Code(s): E21.3 - Hyperparathyroidism, unspecified Status: Acute Assessment and Plan: * Calcium bit higher than usual at 11.3 on admission. * Expect some improvement with IV fluids. * Improved to 10.3 today (8) Paroxysmal atrial fibrillation: Code(s): I48.0 - Paroxysmal atrial fibrillation Status: Acute Assessment and Plan: * Currently sounds to be in a normal sinus rhythm. * Continue flecainide 50 mg p.o. b.i.d.. (9) Chronic anticoagulation: Code(s): Z79.01 - terminal clerk (current) use of anticoagulants Status: Acute Assessment and Plan: Continue Eliquis for stroke prophylaxis. (10) Blocked suprapubic catheter: Qualifiers: Encounter type: initial encounter Qualified Code(s): T83.090A - Other mechanical complication of cystostomy catheter, initial encounter Code(s): T83.090A - Other mechanical complication of cystostomy catheter, initial encounter Status: Acute Assessment and Plan: Suprapubic catheter was exchanged per ED physician as detailed above. Subjective Date/time seen: 05/13/23 09:21
--- NOTE | 2023-05-13 09:21 | PM.IMPN ---
Progress Note: A&P Assessment and Plan (1) Complicated urinary tract infection: Code(s): N39.0 - Urinary tract infection, site not specified Status: Acute Assessment and Plan: Suprapubic catheter was not draining and was changed per ED physician upon arrival. UA with pyuria and nitrate/leukocyte esterase positive; received ceftriaxone 1 g x 1 in ED. Change to cefepime 2 g q.8 hours given history of Pseudomonas and intermediate carbapenem resistant Proteus. Urine culture positive for Gram-negative bacilli. Blood cultures no growth to date. (2) Hyperchloremic acidosis: Code(s): E87.29 - Other acidosis Status: Acute Assessment and Plan: Patient has a hyperchloremic non-anion gap acidosis dating back several months. This was following her subtotal colectomy and is likely due to ongoing bicarbonate loss from diarrhea. 05/11 Infuse 1 L of fluids containing 150 mEq sodium bicarbonate. (3) Hyperkalemia: Code(s): E87.5 - Hyperkalemia Status: Acute Assessment and Plan: Likely related to the acidosis. Resolved. (4) Dehydration: Code(s): E86.0 - Dehydration Status: Acute Assessment and Plan: Monitor volume status closely with strict I/O and daily weights. IV fluids discontinued. (5) COVID: Code(s): U07.1 - COVID-19 Status: Acute Assessment and Plan: Patient was diagnosed with COVID on 04/22/2023. She continues to test positive for the same but is asymptomatic. No indication for isolation or treatment at this time. (6) Type 2 diabetes mellitus: Qualifiers: Diabetes mellitus alf insulin use: with terminal operations supervisor use Diabetes mellitus complication status: without complication Qualified Code(s): E11.9 - Type 2 diabetes mellitus without complications; Z79.4 - group home (current) use of insulin Code(s): E11.9 - Type 2 diabetes mellitus without complications Status: Acute Assessment and Plan: Random glucose was 284 and A1c today was 9.3%. Continue basal insulin (Lantus U 100 25 units q.12 hours). Initiate sliding scale insulin, Accu-Cheks, and hypoglycemic protocol. (7) Hyperparathyroidism: Code(s): E21.3 - Hyperparathyroidism, unspecified Status: Acute Assessment and Plan: Calcium bit higher than usual at 11.3 on admission. Expect some improvement with IV fluids. Improved to 10.3 today (8) Paroxysmal atrial fibrillation: Code(s): I48.0 - Paroxysmal atrial fibrillation Status: Acute Assessment and Plan: Currently sounds to be in a normal sinus rhythm. Continue flecainide 50 mg p.o. b.i.d.. (9) Chronic anticoagulation: Code(s): Z79.01 - terminal operations supervisor (current) use of anticoagulants Status: Acute Assessment and Plan: Continue Eliquis for stroke prophylaxis. (10) Blocked suprapubic catheter: Qualifiers: Encounter type: initial encounter Qualified Code(s): T83.090A - Other mechanical complication of cystostomy catheter, initial encounter Code(s): T83.090A - Other mechanical complication of cystostomy catheter, initial encounter Status: Acute Assessment and Plan: Suprapubic catheter was exchanged per ED physician as detailed above. Subjective Date/time seen: 05/13/23 09:21 Interval history: Patient doing well today. She has remained afebrile. She denies any nausea or vomiting. She has Schmitt catheter in place that is draining clear yellow urine. Urine cultures came back with Gram-negative bacilli. Continue current IV antibiotics for now. Exam Narrative: GENERAL: Comfortable, no acute distress HENMT: moist mucous membranes EYES: EOM intact b/l NECK: no lymphadenopathy RESPIRATORY: clear to auscultation CARDIO: RRR GI: soft, nontender, bowel sounds present SKIN: no rashes EXTREMITIES: no edema, Waffle boots
[2023-05-13 11:48] LABS: Glucose Point of Care 234 mg/dl (65-105)
[2023-05-13] MEDS: INSULIN ASPART (*BKC) 100 UNITS/ML SUB-Q (12:33)
[2023-05-13] MEDS: INSULIN ASPART (*BKC) 100 UNITS/ML 7 UNITS SUB-Q (12:33)
--- NOTE | 2023-05-13 13:50 | PM.DS ---
DS: Admitting Diagnosis Discharge Date 05/13/23 Admitting Diagnosis UTI DS: Discharge Diagnosis Discharge Diagnosis (1) Complicated urinary tract infection: Code(s): N39.0 - Urinary tract infection, site not specified Status: Acute (2) Hyperchloremic acidosis: Code(s): E87.29 - Other acidosis Status: Acute (3) Hyperkalemia: Code(s): E87.5 - Hyperkalemia Status: Acute (4) Dehydration: Code(s): E86.0 - Dehydration Status: Acute (5) COVID: Code(s): U07.1 - COVID-19 Status: Acute (6) Type 2 diabetes mellitus: Qualifiers: Diabetes mellitus complication status: without complication Diabetes mellitus intermediate manager insulin use: with intermediate use Qualified Code(s): E11.9 - Type 2 diabetes mellitus without complications; Z79.4 - [facility] (current) use of insulin Code(s): E11.9 - Type 2 diabetes mellitus without complications Status: Acute (7) Hyperparathyroidism: Code(s): E21.3 - Hyperparathyroidism, unspecified Status: Acute (8) Paroxysmal atrial fibrillation: Code(s): I48.0 - Paroxysmal atrial fibrillation Status: Acute (9) Chronic anticoagulation: Code(s): Z79.01 - termite control service representative (current) use of anticoagulants Status: Acute (10) Blocked suprapubic catheter: Qualifiers: Encounter type: initial encounter Qualified Code(s): T83.090A - Other mechanical complication of cystostomy catheter, initial encounter Code(s): T83.090A - Other mechanical complication of cystostomy catheter, initial encounter Status: Acute DS: Summary Hospital Course Hospital Course: This is an 82-year-old female with a past medical history of neurogenic bladder status post suprapubic catheter, MS, dimension, AFib, chronic anticoagulation, PE, breast cancer, hypertension, insulin-dependent diabetes, hypothyroidism, hyperparathyroidism and other comorbidities presented to the ED on 05/11/2023 due to suprapubic catheter not draining. UA was suspicious of infection. She is found to have a?WBC count of 37.9, potassium 5.2, chloride 111, carbon dioxide 14, anion gap 12, BUN 23, creatinine 0.60, calcium 11.3. patient was given a dose of Rocephin in the ED and admitted for further treatment. Patient had history of Pseudomonas in intermediate carbon a Pean resistant Proteus that she was changed to cefepime 2g q.8h urine culture came back positive for Klebsiella pneumonia sensitive to cefepime. Culture showed resistance to ceftriaxone, and intermediate resistance to Levaquin and Macrobid. It was sensitive to Bactrim and patient has normal kidney function. Will put patient on Bactrim for a total antibiotic therapy of 10 days. Labs and vital signs are stable and medically stable for discharge. Time Spent with Patient Time attestation: Total time spent providing and/or coordinating discharge services: Exam Narrative: GENERAL: Comfortable, no acute distress HENMT: moist mucous membranes EYES: EOM intact b/l NECK: no lymphadenopathy RESPIRATORY: clear to auscultation CARDIO: RRR GI: soft, nontender, bowel sounds present SKIN: no rashes EXTREMITIES: no edema, Waffle boots on DS: Data Data Completed and Pending Labs on day of discharge: Labs from last 24 hours 05/13/23 05/13/23 05/13/23 11:46 07:57 06:37 WBC RBC Hgb Hct MCV MCH MCHC RDW Plt Count MPV PT INR Sodium Potassium Chloride Carbon Dioxide Anion Gap BUN Creatinine Estim Creat Clear Calc Estimated GFR Glucose POC Capillary Glucose 234 H 163 H Calcium Total Bilirubin Direct Bilirubin AST ALT Alkaline Phosphatase Total Protein Albumin 3.2 L 05/13/23 05/13/23 05/13/23 06:37 06:37 06:37 WBC RBC Hgb Hct MCV MCH MCHC RDW Plt Count MPV PT INR Sodium Potassium Chloride Carbo
[2023-05-13 13:55] VITALS: BP 120/40; PULSE 73; RESP 16; TEMP 36.6; O2SAT 95
--- NOTE | 2023-05-13 14:38 | PC.NURSE ---
Received orders from Kelly Maciel to give IV cefepime x1 prior to D/C. Pharmacy gave okay to give scheduled medication now instead of scheduled 1800 dose.
[2023-05-13 16:35] LABS: Glucose Point of Care 174 mg/dl (65-105)
[2023-05-15 13:19] LABS: Chloride Rand Ur <20 mmol/L (32-290); Creatinine Random Urine 54 mg/dL (20-275)
== END 2023-05-13 18:25 | DRG 689 ==
LOC: ANHED 08:23 → ANH2MED 14:21
PROVIDERS: Physician Assistant; Admitting Provider Internal Medicine; Emergency Provider General Practice; PCP Family Medicine; Visit Provider Internal Medicine Critical Care Medicine
DX: N39.0 Urinary tract infection, site not specified (principal); U07.1 COVID-19; T83.090A Other mechanical complication of cystostomy catheter, initial encounter; E87.29 Other acidosis; Z16.20 Resistance to unspecified antibiotic; B96.1 Klebsiella pneumoniae [K. pneumoniae] as the cause of diseases classified elsewhere; E86.0 Dehydration; E03.9 Hypothyroidism, unspecified; E21.3 Hyperparathyroidism, unspecified; E11.69 Type 2 diabetes mellitus with other specified complication; E87.5 Hyperkalemia; F03.90 Unspecified dementia, unspecified severity, without behavioral disturbance, psychotic disturbance, mood disturbance, and anxiety; I48.0 Paroxysmal atrial fibrillation; I11.0 Hypertensive heart disease with heart failure; I50.9 Heart failure, unspecified; K21.9 Gastro-esophageal reflux disease without esophagitis; G35 Multiple sclerosis; G47.33 Obstructive sleep apnea (adult) (pediatric); K52.9 Noninfective gastroenteritis and colitis, unspecified; N31.9 Neuromuscular dysfunction of bladder, unspecified; Z99.89 Dependence on other enabling machines and devices; Z86.711 Personal history of pulmonary embolism; Z91.199 Patient's noncompliance with other medical treatment and regimen due to unspecified reason; Z90.710 Acquired absence of both cervix and uterus; Z90.49 Acquired absence of other specified parts of digestive tract; Z79.4 Long term (current) use of insulin; Z93.2 Ileostomy status; Z79.01 Long term (current) use of anticoagulants; Z85.3 Personal history of malignant neoplasm of breast
CPT/HCPCS: 36415; 71045; 74177; 80048; 80053; 80076; 81001; 82436; 82570; 82803; 82948; 83036; 83605; 83735; 84133; 84300; 84443; 85025; 85027; 85055; 85610; 87040; 87077; 87086; 87186; 87493; 87637; 93005; 96361; 96374; 99285; A9270; J0248; J0692; J0696; J1815; J2405; J7030; J7040; Q9967

== ENCOUNTER 2023-07-09 09:06 | Outpatient (CLI) | payer MEDICARE, MEDICAID, SELFPAY ==
--- NOTE | ~2023-07-09 | DEXA_ITS ---
Bone Density Report Name: LOC ANDERSON Age: 82 Sex: Female Ethnicity: White Date of : 1940 Indication: postmenopausal; screening for osteoporosis; height loss; inflammatory bowel disease; cancer; asthma or emphysema; hysterectomy; Referring Provider: CIELO MARROQUIN Study: Bone densitometry was performed. Exam Date: July 09, 2023 Accession number: [id number] Bone Density: Region BMD T-score Z-score Classification Total Forearm (Left) 0.478 -1.9 1.7 1/3 Forearm (Left) 0.615 -1.3 2.4 UD Forearm (Left) 0.347 -1.7 1.0 World Health Organization criteria for BMD impression classify patients as: Normal (T-score at or above -1.0), Osteopenia (T-score between -1.0 and -2.5), or Osteoporosis (T-score at or below -2.5). Clinical Information Provided by Patient: Has used the following medications: Calcium Has the following medical conditions: Asthma or Emphysema, Cancer, Inflammatory bowel diseases, Hysterectomy Patient maximum height was 66 Menopause Age: 38 No regular weight bearing exercise Drinks caffeinated beverages Onset of menses at age 13 Number of children 3 Impression: The patient has low bone mass, based on the Left Third Radius T-score. Discussion: BONE DENSITY IS LOW AT ONE OR MORE SKELETAL SITES. This patient's lowest T-score is low at one or more skeletal sites. It meets the World Health Organization's (WHO) criteria for ?low bone mass? (T-score between -1.0 and -2.5). The patient's 10-year risk of fracture as calculated by FRAX is less than the threshold where pharmacological therapy is recommended by the National Osteoporosis Foundation (NOF). However, all treatment decisions require clinical judgment and consideration of individual patient factors, including patient preferences, comorbidities, previous drug use, risk factors not captured in the FRAX model (e.g., frailty, falls, vitamin D deficiency, increased bone turnover, interval significant decline in bone density) and possible under or overestimation of fracture risk by FRAX. The patient should follow a healthful lifestyle (good nutrition with adequate calcium and vitamin D, and appropriate weight-bearing exercise). Follow-Up: Consider repeating this study in 2 to 3 years to reassess this patient's status, or sooner if there is some new clinical indication. Reported by: MARKO on 07/09/2023 9:41:00 AM. Reviewed, dictated and finalized at location [facility]
== END 2023-07-09 09:07 | disposition home or self-care (01) ==
LOC: ANHIMG 09:24
PROVIDERS: PCP Family Medicine; Visit Provider Internal Medicine Hematology & Oncology
DX: M81.0 Age-related osteoporosis without current pathological fracture (principal); C50.912 Malignant neoplasm of unspecified site of left female breast; Z17.0 Estrogen receptor positive status [ER+]; M85.89 Other specified disorders of bone density and structure, multiple sites
CPT/HCPCS: 77081

== ENCOUNTER 2023-08-20 11:50 | Outpatient (CLI) | payer MEDICARE, MEDICAID, SELFPAY ==
[2023-08-20 16:45] LABS: Erythrocyte Sedimentation Rate 3 mm/hr (0-20)
[2023-08-20 20:20] LABS: Iron 137 ug/dL (37-170)
[2023-08-20 20:28] LABS: Percent Iron Saturation 35 % (20-50)
[2023-08-20 20:47] LABS: CRP 0.5 mg/dL (<1.0); Lactate Dehydrogenase 177 U/L (120-246)
[2023-08-20 21:49] LABS: Folic Acid 8.4 ng/mL (2.76->20)
== END 2023-08-20 11:51 | disposition home or self-care (01) ==
PROVIDERS: PCP Family Medicine; Visit Provider Internal Medicine Hematology & Oncology
DX: D64.9 Anemia, unspecified (principal); D72.829 Elevated white blood cell count, unspecified
CPT/HCPCS: 36415; 82607; 82728; 82746; 83540; 83550; 83615; 85652; 86140; 88184; 88185

== ENCOUNTER 2023-08-20 12:43 | Emergency (ER) | payer MEDICARE, MEDICAID, SELFPAY ==
[2023-08-20 12:46] VITALS: BP 150/53; PULSE 69; RESP 20; TEMP 36.3; O2SAT 98
--- NOTE | 2023-08-20 14:17 | ED.GENADULT ---
HPI - General Adult General Chief complaint: Urogenital-Female Stated complaint: suprapubic catheter problems Time Seen by Provider: 08/20/23 13:52 History of Present Illness HPI narrative: Patient is an 82-year-old female who presents ER with a malfunctioning suprapubic catheter. It was not draining couple days ago so she went to her urologist yesterday where they were flushing the catheter and it was working well. Unfortunately has continued to stop draining. It was last changed 1 week ago and it typically gets changed every 2 weeks. No reports of fevers or chills. Related Data Home Medications Medication Instructions Recorded Confirmed anastrozole 1 mg tablet 1 mg PO DAILY 03/11/22 07/30/23 apixaban 5 mg tablet (Eliquis) 5 mg PO BID 03/11/22 07/30/23 cranberry extract 425 mg capsule 425 mg PO DAILY 03/11/22 07/30/23 dorzolamide 2 % eye drops 2 drp EACH EYE TID 03/11/22 07/30/23 esomeprazole magnesium 40 mg 40 mg PO DAILY 03/11/22 07/30/23 capsule,delayed release flecainide 50 mg tablet 50 mg PO BID 03/11/22 07/30/23 levothyroxine 75 mcg tablet 75 mcg PO DAILY 03/11/22 07/30/23 nitroglycerin 0.4 mg sublingual 0.4 mg sublingual PRN PRN Chest 03/11/22 07/30/23 tablet Pain rosuvastatin 10 mg tablet 10 mg PO HS 03/11/22 07/30/23 spironolactone 25 mg tablet 25 mg PO DAILY 03/11/22 07/30/23 buspirone 5 mg tablet 5 mg PO TID 08/11/22 07/30/23 arginine-vitamin C-vitamin E oral 9.2 g PO BID 10/28/22 07/30/23 4.5 gram-156 mg/9.2 gram powder pkt (Arginaid) escitalopram oxalate 10 mg tablet 10 mg PO QHS 10/28/22 07/30/23 acetaminophen 500 mg capsule 1,000 mg PO Q6H PRN pain 11/03/22 07/30/23 bromfenac 0.09 % eye drops 1 drp RIGHT EYE HS 11/03/22 07/30/23 insulin aspart U-100 100 unit/mL 1 sliding scale dose subcut 12/13/22 07/30/23 subcutaneous solution (Novolog USEASDIRECTD U-100 Insulin aspart) insulin aspart U-100 100 unit/mL 7 unit subcut TID 12/13/22 07/30/23 subcutaneous solution (Novolog U-100 Insulin aspart) Antacid (calcium carbonate) 500 mg BYMOUTH PRN 05/11/23 07/30/23 Saccharomyces boulardii 250 mg 250 mg PO BID 05/11/23 07/30/23 capsule (Florastor) acetic acid 0.25 % irrigation See Rx Instructions .Route .COMPLEX 05/11/23 07/30/23 solution clobetasol 1 dose topical BID 05/11/23 07/30/23 collagenase clostridium histo. 250 1 applic topical DAILY 05/11/23 07/30/23 unit/gram topical ointment (Santyl) hyoscyamine sulfate 0.125 mg tablet 0.125 mg PO PRN 05/11/23 07/30/23 insulin glargine 100 unit/mL (3 25 unit subcut Q12H 05/11/23 07/30/23 mL) subcutaneous pen (Lantus Solostar U-100 Insulin) mirabegron 50 mg tablet,extended 50 mg PO DAILY 05/11/23 07/30/23 release 24 hr (Myrbetriq) mupirocin 2 % topical DAILY 05/11/23 07/30/23 nystatin 100,000 unit/gram topical 1 applic topical BID 05/11/23 07/30/23 cream phenazopyridine 200 mg tablet 200 mg PO TID 05/11/23 07/30/23 (Pyridium) Allergies Allergy/AdvReac Type Severity Reaction Status Date / Time black pepper Allergy Unknown Verified 12/09/22 13:28 diltiazem Allergy Unknown Verified 12/09/22 13:28 donepezil Allergy Unknown Verified 12/09/22 13:28 fluticasone Allergy Unknown Verified 12/09/22 13:28 metformin Allergy Unknown Verified 12/09/22 13:28 Review of Systems Constitutional: Constitutional: Reports no additional constitutional complaints Cardiovascular: Cardiovascular: Reports no additional cardiovascular complaints Respiratory: Respiratory: Reports no additional respiratory complaints Genitourinary: Comments: +Urinary retention PMFSH Past Medical History Medical History Atherosclerotic heart disease Atrial fibrillation Breast cancer Chronic anticoagulation Chronic idiopathic constipation Congestive heart failure Familial spastic paraplegia Gastroesophageal reflux disease Glaucoma Hereditary spastic paraplegia History of pulmonary embolism Hyperpar
--- NOTE | 2023-08-20 14:45 | PC.NURSE ---
Pt arrived with suprapubic catheter, last changed approx 1 week ago. Catheter not draining upon arrival. Suprapubic catheter removed, new suprapubic catheter placed per this RN.
[2023-08-20 15:17] LABS: Appearance Urine Turbid (Clear); Bacteria Urine 1+ /hpf; Bilirubin Urine Negative (Negative); Blood Urine 3+ (Negative); Color Urine Yellow (Yellow); Glucose Urine UA Negative (Negative); Ketones Urine Negative (Negative); Leukocyte Esterase Ur 3+ LEU/UL (Negative); Need Manual Microscopic Reviewed; Nitrate Urine Negative (Negative); Protein Urine Negative (Negative); RBC Urine 21-50 /hpf (0-2); Specific Grav Ur 1.006 (1.001-1.035); Squamous Epithelial Cell Urine Occasional /hpf (Few); Urobilinogen Urine 0.2 mg/dL (<2.0); WBC Urine >100 /hpf (0-3)
[2023-08-20 15:22] LABS: Add Urine Microscopic? YES
[2023-08-20] MEDS: cefuroxime axetiL 250 MG TABLET 500 MG PO (15:38)
== END 2023-08-20 15:55 | disposition home or self-care (01) ==
PROVIDERS: Emergency Provider Emergency Medicine
DX: N31.9 Neuromuscular dysfunction of bladder, unspecified (principal); N30.90 Cystitis, unspecified without hematuria; I48.91 Unspecified atrial fibrillation; Z79.01 Long term (current) use of anticoagulants; K21.9 Gastro-esophageal reflux disease without esophagitis; Z86.711 Personal history of pulmonary embolism; E11.9 Type 2 diabetes mellitus without complications; I10 Essential (primary) hypertension; E03.9 Hypothyroidism, unspecified; G35 Multiple sclerosis; G47.33 Obstructive sleep apnea (adult) (pediatric); Z86.73 Personal history of transient ischemic attack (TIA), and cerebral infarction without residual deficits
CPT/HCPCS: 36415; 51702; 81001; 82607; 82728; 82746; 83540; 83550; 83615; 85652; 86140; 87086; 88184; 88185; 99283; A9270

== ENCOUNTER 2023-11-11 10:57 | Emergency (ER) | payer MEDICARE, MEDICAID, SELFPAY ==
--- NOTE | ~2023-11-11 | XR_ITS ---
EXAMINATION: XR chest 2V DATE: 11/11/2023 12:12 INDICATION: Chest pain. TECHNIQUE: Frontal and lateral views of the chest were obtained. COMPARISON: Chest single view 05/11/2023 FINDINGS: Calcified right lung nodules and calcified right hilar lymph nodes are consistent with old granulomatous disease. No pleural effusion or pneumothorax. The heart size is normal. There are surgi hola clips in left breast. IMPRESSION: 1. No acute cardiopulmonary disease. Reviewed, dictated and finalized at location [facility].
--- NOTE | 2023-11-11 11:06 | ECG_ITS ---
Test Date: 2023-11-11 11:12:00 Measurements Intervals [place] Rate: 82 P: 50 MS: 170 QRS: -68 QRSD: 117 T: 68 QT: 386 QTc: 453 Interpretive Statements SINUS RHYTHM LEFT ANTERIOR FASCICULAR BLOCK [QRS AXIS <= -45, QR IN I, RS IN II] No previous ECG available for comparison Electronically Signed On 11-11-2023 13:39:26 CDT by Syed uQintero M.D.
[2023-11-11 11:11] VITALS: BP 119/58; PULSE 82; RESP 16; TEMP 36.3; O2SAT 95
[2023-11-11 11:25] LABS: Hematocrit 46.2 % (37.0-47.0); Mean Corpuscular HGB Conc 32.5 g/dl (32-36); Mean Corpuscular Hemoglobin 26.3 pg (26-34); Mean Corpuscular Volume 80.9 fl (80-100); Platelet Count Result 249 k/mm3 (150-375); Red Blood Count 5.71 M/mm3 (4.2-5.4); Red Cell Distribution Width 16.9 % (11.5-14.5)
[2023-11-11 11:33] LABS: Alanine Aminotransferase 29 U/L (6-35); Albumin Level 3.7 g/dL (3.5-5.1); Alkaline Phosphatase 107 U/L (38-126); Anion Gap 6 mmol/L (4-12); Aspartate Amino Transferase 29 U/L (14-36); Bilirubin,Total 0.5 mg/dL (0.2-1.3); Blood Urea Nitrogen 18 mg/dL (7-17); Calcium 10.6 mg/dL (8.4-10.2); Carbon Dioxide 24 mmol/L (22-30); Chloride 104 mmol/L (98-107); Estimated CRCL calculation 65 ml/min; Estimated Glomerular Filt Rate > 60; Glucose 316 mg/dL (65-110); Lipase 116 U/L (23-300); Sodium 134 mmol/L (137-145)
[2023-11-11 11:36] LABS: INR 1.2; Partial Thromboplastin Time 28.4 Seconds (22.3-36.8); Prothrombin Time 15.4 Seconds (11.1-14.7)
[2023-11-11 11:45] LABS: Basophils Absolute Manual 0.34 K/mm3 (0.0-0.1); Basophils Percent Manual 2 % (0-1); Eosinophils Absolute Manual 0.17 K/mm3 (0.02-0.50); Eosinophils Percent Manual 1 % (0-4); Lymphocytes Absolute Manual 1.53 K/mm3 (1.1-4.5); Monocytes Absolute Manual 3.74 K/mm3 (0.1-0.90); Monocytes Percent Manual 22 % (3-9); Neutrophils Percent Manual 66 % (46-73); Platelet Estimate Adequate (Adequate); Schistocytes None Seen; Total Cells Counted 100; Troponin I < 0.012 ng/mL (0.000-0.034)
--- NOTE | 2023-11-11 12:03 | ED.CHESTPAIN ---
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 Patient believes the chest pain started yesterday however family at bedside said she began complaining to staff at her facility this morning. She notes it is midsternal, non radiating and seems to worsen with burping. She has had increased burping throughout the day today. Patient denies associated shortness of breath or cough. She does have a suprapubic [place] catheter in place, was last changed about [address] Ray's urology office. She does have a history of a.fib, CHF, follows with Dr. Quintero. Family believes her last stress test was within the last 6 months and found to be normal. No fever or chills, no abdominal pain. Of note patient has been struggling often on with a intermittent rash since last year, follows with dermatology regarding this rash, has been told in the past it is a contact dermatitis, it began again a few days ago. Patient also has a chronic sacral wound which has been slowly improving, has a wound care team follow with her at her facility. Related Data Home Medications Medication Instructions Recorded Confirmed anastrozole 1 mg tablet 1 mg PO DAILY 03/11/22 10/08/23 apixaban 5 mg tablet (Eliquis) 5 mg PO BID 03/11/22 10/08/23 cranberry extract 425 mg capsule 425 mg PO DAILY 03/11/22 10/08/23 dorzolamide 2 % eye drops 2 drp EACH EYE TID 03/11/22 10/08/23 esomeprazole magnesium 40 mg 40 mg PO DAILY 03/11/22 10/08/23 capsule,delayed release flecainide 50 mg tablet 50 mg PO BID 03/11/22 10/08/23 levothyroxine 75 mcg tablet 75 mcg PO DAILY 03/11/22 10/08/23 nitroglycerin 0.4 mg sublingual 0.4 mg sublingual PRN PRN Chest 03/11/22 10/08/23 tablet Pain rosuvastatin 10 mg tablet 10 mg PO HS 03/11/22 10/08/23 spironolactone 25 mg tablet 25 mg PO DAILY 03/11/22 10/08/23 buspirone 5 mg tablet 5 mg PO TID 08/11/22 10/08/23 arginine-vitamin C-vitamin E oral 9.2 g PO BID 10/28/22 10/08/23 4.5 gram-156 mg/9.2 gram powder pkt (Arginaid) escitalopram oxalate 10 mg tablet 10 mg PO QHS 10/28/22 10/08/23 acetaminophen 500 mg capsule 1,000 mg PO Q6H PRN pain 11/03/22 10/08/23 bromfenac 0.09 % eye drops 1 drp RIGHT EYE HS 11/03/22 10/08/23 insulin aspart U-100 100 unit/mL 1 sliding scale dose subcut 12/13/22 10/08/23 subcutaneous solution (Novolog USEASDIRECTD U-100 Insulin aspart) insulin aspart U-100 100 unit/mL 7 unit subcut TID 12/13/22 10/08/23 subcutaneous solution (Novolog U-100 Insulin aspart) Antacid (calcium carbonate) 500 mg BYMOUTH PRN 05/11/23 10/08/23 Saccharomyces boulardii 250 mg 250 mg PO BID 05/11/23 10/08/23 capsule (Florastor) acetic acid 0.25 % irrigation See Rx Instructions .Route .COMPLEX 05/11/23 10/08/23 solution clobetasol 1 dose topical BID 05/11/23 10/08/23 collagenase clostridium histo. 250 1 applic topical DAILY 05/11/23 10/08/23 unit/gram topical ointment (Santyl) hyoscyamine sulfate 0.125 mg tablet 0.125 mg PO PRN 05/11/23 10/08/23 insulin glargine 100 unit/mL (3 25 unit subcut Q12H 05/11/23 10/08/23 mL) subcutaneous pen (Lantus Solostar U-100 Insulin) mirabegron 50 mg tablet,extended 50 mg PO DAILY 05/11/23 10/08/23 release 24 hr (Myrbetriq) mupirocin 2 % topical DAILY 05/11/23 10/08/23 nystatin 100,000 unit/gram topical 1 applic topical BID 05/11/23 10/08/23 cream phenazopyridine 200 mg tablet 200 mg PO TID 05/11/23 10/08/23 (Pyridium) Allergies Allergy/AdvReac Type Severity Reaction Status Date / Time black pepper Allergy Unknown Verified 11/11/23 12:20 diltiazem Allergy Unknown Verified 11/11/23 12:20 donepezil Allergy Unknown Verified 11/11/23 12:20
[2023-11-11 12:17] VITALS: BP 138/74; PULSE 77; RESP 20; O2SAT 94
[2023-11-11 12:18] VITALS: PULSE 77
[2023-11-11 13:03] LABS: Appearance Urine Turbid (Clear); Bacteria Urine 4+ /hpf; Bilirubin Urine Negative (Negative); Blood Urine Non-Hemolyzed Trace (Negative); Color Urine Yellow (Yellow); Glucose Urine UA Trace mg/dL (Negative); Ketones Urine Negative (Negative); Leukocyte Esterase Ur 3+ LEU/UL (Negative); Need Manual Microscopic Reviewed; Nitrate Urine Positive (Negative); Non Pathogenic Casts >20; Protein Urine Negative (Negative); RBC Urine 0-2 /hpf (0-2); Squamous Epithelial Cell Urine Occasional /hpf (Few); Urobilinogen Urine 0.2 mg/dL (<2.0); WBC Urine >100 /hpf (0-3)
[2023-11-11] MEDS: PANTOPRAZOLE SODIUM IV 40 MG VIAL IV PUSH (13:03)
[2023-11-11 13:25] LABS: Add Urine Microscopic? YES
[2023-11-11 13:55] VITALS: BP 147/78; PULSE 80; RESP 19; O2SAT 93
[2023-11-11] MEDS: AMOXICILLIN/CLAVULANATE K 875-125 MG TAB 1 TABLET PO (14:24)
[2023-11-11 14:43] LABS: Troponin I < 0.012 ng/mL (0.000-0.034)
--- NOTE | 2023-11-11 15:00 | PC.NURSE ---
Christine at [facility] notified of patient return and script for antibiotics. Patient daughter and at bedside and verbalized understanding of plan of care.
--- NOTE | 2023-11-11 15:06 | PC.NURSE ---
Dinner ordered at this time.
== END 2023-11-11 17:48 ==
PROVIDERS: Emergency Medicine; Emergency Provider Student in an Organized Health Care Education/Training Program
DX: K21.9 Gastro-esophageal reflux disease without esophagitis (principal); N39.0 Urinary tract infection, site not specified; R07.89 Other chest pain; I11.0 Hypertensive heart disease with heart failure; I50.9 Heart failure, unspecified; E03.9 Hypothyroidism, unspecified; E11.9 Type 2 diabetes mellitus without complications; I25.10 Atherosclerotic heart disease of native coronary artery without angina pectoris; I48.0 Paroxysmal atrial fibrillation; Z86.73 Personal history of transient ischemic attack (TIA), and cerebral infarction without residual deficits; Z85.3 Personal history of malignant neoplasm of breast
CPT/HCPCS: 36415; 71046; 80053; 81001; 83690; 84484; 85025; 85610; 85730; 87086; 87088; 93005; 96374; 99284; A9270; C9113; J2470

== ENCOUNTER 2023-11-13 06:42 | Inpatient (IN) | payer MEDICARE, MEDICAID, SELFPAY ==
[2023-11-13] VITALS (37 sets, daily range): BP systolic 135–174; BP diastolic 54–105; PULSE 89–110; RESP 14–26; TEMP 36.1–36.4; O2SAT 85–99; BMI 30.1
--- NOTE | ~2023-11-13 | CT_ITS ---
EXAMINATION: CT soft tissue neck w con DATE: 11/13/2023 11:36 INDICATION: Stridor TECHNIQUE: Computed tomography (CT) of the neck was performed with 75 mL Omnipaque-350 intravenous co ntrast. Automated exposure control and iterative reconstruction technique were employed. The dose-swati gth product was 557.08 mGy-cm. COMPARISON: None FINDINGS: Orbits are normal. The paranasal sinuses are clear. Mastoid air cells and middle ear cavities are justus ar. There is probably mucus in the bilateral sphenoid sinuses suggesting acute sinusitis. Em bull ganesh the right middle turbinate. Submandibular and parotid glands are symmetric. Benign subcentimeter thyroid nodules and calcification in the right thyroid lobe. There are scattered normal-sized lymph n odes in the neck and visualized superior mediastinum and bilateral rochelle. Mild atelectasis in the depe ndent aspect of both lungs most prominent at the superior segments of the lower lobes. Moderate cervi hola spondylosis. There is mild soft tissue swelling and edema in the retropharyngeal fat more prominent on the left. T his becomes more prominent caudally with approximately 1.7 x 1.7 cm region of soft tissue density in the left anterior prevertebral soft tissues which exerts mass effect upon the left posterior aspect o f the esophagus. Along the caudal margin of the soft tissue density the esophagus demonstrates some a symmetric left-sided wall thickening. There is tracheal narrowing throughout the mediastinum as well as narrowing of the bilateral mainstem bronchi in each with concave posterior margins suggesting comb ination of tracheobronchomalacia and expiratory phase of imaging. There is no significant narrowing o f the more cephalad cervical airway. Normal epiglottis. No abscess. IMPRESSION: 1. Inflammatory edema without evident abscess in the retropharyngeal/prevertebral soft tissues in the mid to lower neck and cephalad from the poorly defined approximately 1.7 x 1.7 cm soft tissue densit y posterior to the inferior left thyroid lobe exerting mass effect upon the left posterior margin of the esophagus with some associated asymmetric mild wall thickening of the left side of the esophagus. This could be either infectious/inflammatory or malignant in etiology. Consider endoscopy for furthe r evaluation. 2. AP narrowing of the trachea and mainstem bronchi in the thorax likely related to combination of tr acheobronchomalacia and expiratory phase of imaging. 3. Likely benign multinodular goiter. 4. Bubbly mucus in the bilateral sphenoid sinuses consistent with acute sinusitis. Reviewed, dictated and finalized at location B. IMPRESSION: 1. Inflammatory edema without evident abscess in the retropharyngeal/prevertebr al soft tissues in the mid to lower neck and cephalad from the poorly defined a pproximately 1.7 x 1.7 cm soft tissue density posterior to the inferior left th yroid lobe exerting mass effect upon the left posterior margin of the esophagus with some associated asymmetric mild wall thickening of the left side of the e sophagus. This could be either infectious/inflammatory or malignant in etiology . Consider endoscopy for further evaluation. 2. AP narrowing of the trachea and mainstem bronchi in the thorax likely relate d to combination of tracheobronchomalacia and expiratory phase of imaging. 3. Likely benign multinodular goiter. 4. Bubbly mucus in the bilateral sphenoid sinuses consistent with acute sinusit is.
--- NOTE | ~2023-11-13 | XR_ITS ---
EXAMINATION: XR chest 1V portable DATE: 11/16/2023 12:42 INDICATION: Shortness of breath TECHNIQUE: frontal view of the chest was obtained. COMPARISON: Chest radiograph dated 11/13/2023 FINDINGS: There is asymmetric increased lucency in the right hemithorax relative to the left likely related to some rightward rotation of the patient. Recommend with pulmonary vascular congestion but without stewart k pulmonary edema. Streaky and linear atelectasis at the bilateral lung bases. Likely small left pleu ral effusion with blunting at the left costophrenic and cardiophrenic angles. No pneumothorax. IMPRESSION: 1. Cardiomegaly with pulmonary vascular congestion but without nico pulmonary edema. 2. Small left pleural effusion and mild bibasilar atelectasis. Reviewed, dictated and finalized at location A.
--- NOTE | ~2023-11-13 | XR_ITS ---
2 VIEWS SOFT TISSUES NECK Ordering provider: Juancarlos Hamm MD History: . stridor . Comparison: None. FINDINGS: SOFT TISSUES: Slightly prominent prevertebral soft tissue swelling in the lower cervical area. The e piglottis is normal. The pharynx and trachea appear patent. VERTEBRAL BODIES: Normal height and alignment. No acute osseous findings. Degenerative changes of the spine. DISK SPACES: Narrowing of the disc C4-C5 and C5-C6. Multilevel uncovertebral joint osteoarthritic peter nges. Multilevel facet joint disease. IMPRESSION: Slightly prominent prevertebral soft tissues the lower cervical area otherwise, no significant abnorm ality. Reviewed, dictated and finalized at location A. IMPRESSION: Slightly prominent prevertebral soft tissues the lower cervical area otherwise, no significant abnormality.
--- NOTE | ~2023-11-13 | US_ITS ---
EXAMINATION: US thyroid DATE: 11/14/2023 12:28 INDICATION: Thyroid mass. TECHNIQUE: Multiple ultrasound images of the thyroid were obtained. COMPARISON: CT 11/13/2023 FINDINGS: The right thyroid lobe measures 3.4 x 1.6 x 1.5 cm. The left thyroid lobe measures 3.2 x 2.0 x 1.6 c m. In the left thyroid lobe, there is an 8 mm solid, very hypoechoic, wider than tall nodule with sm ooth margin without echogenic foci (TI-RADS TR4). In the right thyroid lobe, there is a 10 mm solid, very hypoechoic, wider than tall nodule without echogenic foci (TR4). There is a macrocalcification i n right thyroid lobe. The mass posterior to the left thyroid lobe seen by CT is not well visualized. IMPRESSION: 1. The mass posterior to the left thyroid lobe seen by CT is not well visualized. 2. Small thyroid nodules. Consider thyroid ultrasound in one year. Reviewed, dictated and finalized at location A. IMPRESSION: 1. The mass posterior to the left thyroid lobe seen by CT is not well visualize d. 2. Small thyroid nodules. Consider thyroid ultrasound in one year.
--- NOTE | ~2023-11-13 | XR_ITS ---
Portable chest x-ray Comparison: 11/11/2023 Clinical History: Shortness of breath Findings: Stable calcified left basilar granuloma. Probable mild central congestive change. Cardiom ediastinal silhouette is stable. Bones and soft tissues are unremarkable. Impression: Mild central congestive change. Reviewed, dictated and finalized at [facility]. Impression: Mild central congestive change.
[2023-11-13] MEDS: racEPINEPHrine 2.25% NEBU SOLN 0.5 ML VIAL.NEB INHALATION ×2 (07:00→11:02)
--- NOTE | 2023-11-13 07:02 | ECG_ITS ---
Test Date: 2023-11-13 07:02:27 Measurements Intervals [place] Rate: 108 P: 85 MS: 207 QRS: -59 QRSD: 118 T: 48 QT: 340 QTc: 456 Interpretive Statements SINUS TACHYCARDIA LEFT ANTERIOR FASCICULAR BLOCK [QRS AXIS <= -45, QR IN I, RS IN II] Compared to ECG 11/11/2023 11:12:00 NO SIGNIFICANT CHANGES Electronically Signed On 11-13-2023 13:36:17 CDT by Syed Quintero M.D.
[2023-11-13 07:04] LABS: Basophils Absolute Auto 0.2 K/mm3 (0.0-0.1); Basophils Percent Auto 0.7 % (0.2-1.2); Eosinophils Absolute Auto 0.6 K/mm3 (0-0.3); Eosinophils Percent Auto 2.1 % (0-4.4); Hematocrit 49.3 % (37.0-47.0); Hemoglobin 15.7 g/dL (12.0-15.0); Immature Granulocyte Absolute 0.55 K/mm3 (0.00-0.031); Immature Granulocyte Percent A 1.9 % (0-0.5); Lymphocytes Absolute Auto 5.99 K/mm3 (0.9-3.2); Lymphocytes Percent Auto 21.1 % (18.3-44.2); Mean Corpuscular HGB Conc 31.8 g/dl (32-36); Mean Corpuscular Hemoglobin 26.3 pg (26-34); Mean Corpuscular Volume 82.4 fl (80-100); Monocytes Absolute Auto 5.5 K/mm3 (0.1-0.6); Monocytes Percent Auto 19.4 % (2.6-8.5); Neutrophils Absolute Auto 15.5 K/mm3 (1.3-6.7); Neutrophils Percent Auto 54.8 % (45.5-73.1); Platelet Count Result 322 k/mm3 (150-375); Red Blood Count 5.98 M/mm3 (4.2-5.4); Red Cell Distribution Width 16.4 % (11.5-14.5); White Blood Count 28.4 K/mm3 (4.5-10.0)
[2023-11-13] MEDS: methylPREDNISolone SOD SUCC 125 MG VIAL IV PUSH (07:06)
[2023-11-13] MEDS: FAMOTIDINE 20 MG/2 ML VIAL IV PUSH (07:07)
[2023-11-13] MEDS: diphenhydrAMINE HCl INJ 50 MG/ML VIAL 25 MG IV PUSH (07:07)
[2023-11-13 07:16] LABS: Alanine Aminotransferase 26 U/L (6-35); Albumin Level 4.3 g/dL (3.5-5.1); Alkaline Phosphatase 114 U/L (38-126); Anion Gap 8 mmol/L (4-12); Aspartate Amino Transferase 32 U/L (14-36); Bilirubin,Total 0.7 mg/dL (0.2-1.3); Blood Urea Nitrogen 13 mg/dL (7-17); Calcium 10.7 mg/dL (8.4-10.2); Carbon Dioxide 24 mmol/L (22-30); Chloride 106 mmol/L (98-107); Estimated CRCL calculation 60 ml/min; Estimated Glomerular Filt Rate > 60; Glucose 188 mg/dL (65-110); Potassium 4.3 mmol/L (3.4-5.0); Sodium 138 mmol/L (137-145)
[2023-11-13 07:18] LABS: Hypochromasia 1+; Platelet Estimate Adequate (Adequate); Schistocytes None Seen; Target Cells 1+
--- NOTE | 2023-11-13 07:19 | ED.GENADULT ---
HPI - General Adult General Chief complaint: Shortness of Breath/Dyspnea Stated complaint: dyspnea Time Seen by Provider: 11/13/23 06:57 History of Present Illness HPI narrative: 82-year-old female presented to the emergency department for evaluation for worsening shortness breath since yesterday. Patient does have a history of CHF. Patient has had some wheezing and coughing and [facility] has noticed some stridor as well. Patient was treated with a DuoNeb EN route. Upon arrival emergency department patient did still have some expiratory stridor, racemic epi was ordered for her. Patient is also currently on antibiotics for urinary tract infection. Related Data Home Medications Medication Instructions Recorded Confirmed apixaban 5 mg tablet (Eliquis) 5 mg PO BID 03/11/22 11/13/23 cranberry extract 425 mg capsule 425 mg PO DAILY 03/11/22 11/13/23 dorzolamide 2 % eye drops 2 drp EACH EYE TID 03/11/22 11/13/23 esomeprazole magnesium 40 mg 40 mg PO DAILY 03/11/22 10/08/23 capsule,delayed release flecainide 50 mg tablet 50 mg PO BID 03/11/22 11/13/23 levothyroxine 75 mcg tablet 75 mcg PO DAILY 03/11/22 11/13/23 nitroglycerin 0.4 mg sublingual 0.4 mg sublingual PRN PRN Chest 03/11/22 10/08/23 tablet Pain rosuvastatin 10 mg tablet 10 mg PO HS 03/11/22 11/13/23 spironolactone 25 mg tablet 25 mg PO DAILY 03/11/22 11/13/23 buspirone 5 mg tablet 5 mg PO TID 08/11/22 11/13/23 arginine-vitamin C-vitamin E oral 1 g PO BID 10/28/22 11/13/23 4.5 gram-156 mg/9.2 gram powder pkt (Arginaid) escitalopram oxalate 10 mg tablet 10 mg PO QHS 10/28/22 11/13/23 acetaminophen 500 mg capsule 1,000 mg PO Q6H PRN pain 11/03/22 11/13/23 bromfenac 0.09 % eye drops 1 drp RIGHT EYE HS 11/03/22 11/13/23 insulin aspart U-100 100 unit/mL 1 sliding scale dose subcut 12/13/22 10/08/23 subcutaneous solution (Novolog USEASDIRECTD U-100 Insulin aspart) insulin aspart U-100 100 unit/mL 7 unit subcut TID 12/13/22 10/08/23 subcutaneous solution (Novolog U-100 Insulin aspart) Antacid (calcium carbonate) 500 mg PO BID PRN Indigestion 05/11/23 11/13/23 Saccharomyces boulardii 250 mg 250 mg PO BID 05/11/23 11/13/23 capsule (Florastor) acetic acid 0.25 % irrigation 30 ml irrigation EVERY OTHER DAY 05/11/23 11/13/23 solution clobetasol 1 dose topical BID 05/11/23 10/08/23 collagenase clostridium histo. 250 1 applic topical DAILY 05/11/23 10/08/23 unit/gram topical ointment (Santyl) hyoscyamine sulfate 0.125 mg tablet 0.125 mg PO BID PRN cramping 05/11/23 11/13/23 insulin glargine 100 unit/mL (3 25 unit subcut DAILY 05/11/23 10/08/23 mL) subcutaneous pen (Lantus Solostar U-100 Insulin) mirabegron 50 mg tablet,extended 50 mg PO DAILY 05/11/23 10/08/23 release 24 hr (Myrbetriq) mupirocin 2 % topical DAILY 05/11/23 10/08/23 nystatin 100,000 unit/gram topical 1 applic topical BID 05/11/23 10/08/23 cream anastrozole 1 mg tablet 1 mg PO DAILY 11/13/23 11/13/23 atropine 1 % eye drops 4 drp sublingual Q1H PRN Excessive 11/13/23 11/13/23 Salivation ciclopirox 0.77 % topical gel 1 applic topical HS 11/13/23 11/13/23 insulin glargine 100 unit/mL 15 unit subcut HS 11/13/23 11/13/23 subcutaneous cartridge ipratropium 0.5 mg-albuterol 3 mg 3 ml inhalation TID 11/13/23 11/13/23 (2.5 mg base)/3 mL nebulization soln pantoprazole 40 mg tablet,delayed 40 mg PO DAILY 11/13/23 11/13/23 release Allergies Allergy/AdvReac Type Severity Reaction Status Date / Time black pepper Allergy Unknown Verified 11/11/23 12:20 diltiazem Allergy Unknown Verified 11/11/23 12:20 donepezil Allergy Unknown Verified 11/11/23 12:20 fluticasone Allergy Unknown Verified 11/11/23 12:20 metformin Allergy Unknown Verified 11/11/23 12:20 Review of Systems Review of Systems: All systems reviewed & are unremarkable except as noted in HPI and below PMFSH Past Medical History Medical History Atherosclerot
[2023-11-13 08:55] LABS: Lactic Acid Reflex 2.2 mmol/L (0.7-2.0)
[2023-11-13 09:04] LABS: INR 1.2; Partial Thromboplastin Time 25.5 Seconds (22.3-36.8); Prothrombin Time 15.3 Seconds (11.1-14.7)
[2023-11-13 09:27] LABS: Strep Group A RT-PCR NOT DETECTED (Negative)
[2023-11-13 10:21] LABS: Influenza A QL RT-PCR Negative (Negative); Influenza B QL RT-PCR Negative (Negative); RSV RNA, RT-PCR Negative (Negative); SARS-CoV-2 RNA PCR Negative (Negative)
[2023-11-13 10:40] LABS: Appearance Urine Cloudy (Clear); Bacteria Urine None Seen /hpf; Bilirubin Urine Negative (Negative); Blood Urine 1+ (Negative); Color Urine Yellow (Yellow); Glucose Urine UA Negative (Negative); Ketones Urine Negative (Negative); Leukocyte Esterase Ur 1+ LEU/UL (Negative); Mucus Urine Present /lpf; Nitrate Urine Negative (Negative); Protein Urine 2+ mg/dL (Negative); Specific Grav Ur 1.017 (1.001-1.035); Squamous Epithelial Cell Urine None Seen /hpf (Few); Urobilinogen Urine 0.2 mg/dL (<2.0); WBC Urine 51-100 /hpf (0-3); pH Urine 5.5 (5.0-9.0)
[2023-11-13 10:42] LABS: Add Urine Microscopic? YES
[2023-11-13 11:43] LABS: Reflex Lactic Acid Yes or No Add Lactic
[2023-11-13 12:17] LABS: Lactic Acid 3.6 mmol/L (0.7-2.0)
[2023-11-13] MEDS: SODIUM CHLORIDE 0.9% IV 1,000 ML 999 ML IV CONT (12:55)
[2023-11-13] MEDS: methylPREDNISolone SOD SUCC 125 MG VIAL 60 MG IV PUSH ×2 (18:12→23:25)
--- NOTE | 2023-11-13 18:23 | ADMGEN ---
This patient, Perla Leon, was admitted to IMU Room 202-. Patient/family oriented to hospital policies and general routines including ID bracelet, bed and alarms, visiting hours, pain management, procedures, bathroom and other care routines, personal items, smoking policy, room service/diet, and visiting hours. Information on how to activate the Rapid Response Team has been discussed. Patient/Family are encouraged to report perceived risks to care and to ask questions if they do not understand what they are told or what they should do.
--- NOTE | 2023-11-13 19:51 | PM.IMHP ---
H&P: HPI History of Present Illness Date/Time: 11/13/23 19:51 Chief Complaint: sob Narrative: This is an 82-year-old female with past medical history significant for atrial fibrillation rate controlled anticoagulated, breast CA, congestive heart failure, GERD, hypothyroidism, hypertension, multiple sclerosis, neurogenic bladder, obstructive sleep apnea, type 2 diabetes mellitus insulin-dependent. 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 Patient is unable to really contribute in a meaningful way to history taking states that has had difficulty swallowing and pain for about a year is mainly with liquids also is painful to swallow and has sensation of food stuck in her chest. Patient denies any fevers, rigors, chills, nausea, vomiting, has a cough nonproductive, denies any weight loss, has had good appetite, good oral intake. Preliminary workup was significant for probable mass. Patient is been admitted for further evaluation management and treatment. Portable chest x-ray Comparison: 11/11/2023 Clinical History: Shortness of breath Findings: Stable calcified left basilar granuloma. Probable mild central congestive change. Cardiomediastinal silhouette is stable. Bones and soft tissues are unremarkable. Impression: Mild central congestive change. 2 VIEWS SOFT TISSUES NECK Ordering provider: Juancarlos Hamm MD History: . stridor . Comparison: None. FINDINGS: SOFT TISSUES: Slightly prominent prevertebral soft tissue swelling in the lower cervical area. The epiglottis is normal. The pharynx and trachea appear patent. VERTEBRAL BODIES: Normal height and alignment. No acute osseous findings. Degenerative changes of the spine. DISK SPACES: Narrowing of the disc C4-C5 and C5-C6. Multilevel uncovertebral joint osteoarthritic changes. Multilevel facet joint disease. IMPRESSION: Slightly prominent prevertebral soft tissues the lower cervical area otherwise, no significant abnormality. EXAMINATION: CT soft tissue neck w con DATE: 11/13/2023 11:36 INDICATION: Stridor TECHNIQUE: Computed tomography (CT) of the neck was performed with 75 mL Omnipaque-350 intravenous contrast. Automated exposure control and iterative reconstruction technique were employed. The dose-length product was 557.08 mGy-cm. COMPARISON: None FINDINGS: Orbits are normal. The paranasal sinuses are clear. Mastoid air cells and middle ear cavities are clear. There is probably mucus in the bilateral sphenoid sinuses suggesting acute sinusitis. Em bullosa the right middle turbinate. Submandibular and parotid glands are symmetric. Benign subcentimeter thyroid nodules and calcification in the right thyroid lobe. There are scattered normal-sized lymph nodes in the neck and visualized superior mediastinum and bilateral rochelle. Mild atelectasis in the dependent aspect of both lungs most prominent at the superior segments of the lower lobes. Moderate cervical spondylosis. There is mild soft tissue swelling and edema in the retropharyngeal fat more prominent on the left. This becomes more prominent caudally with approximately 1.7 x 1.7 cm region of soft tissue density in the left anterior prevertebral soft tissues which exerts mass effect upon the left posterior aspect of the esophagus. Along the caudal margin of the soft tissue density the esophagus demonstrates some asymmetric left-sided wall thickening. There is tracheal narrowing throughout the mediastinum as well as narrowing of the bilateral mainstem bronchi in each with concave posterior margins suggesting combination of tracheobronchomalacia and expiratory phase of imaging. There is no significant narrowing of the more cephalad cervical airway. Normal epiglottis. No abscess. IMPRESSION: 1. Inflammatory edema without evident abscess in the retropharyngeal/prevertebral soft tissues in the mid to lowe
[2023-11-13 20:08] LABS: Glucose Point of Care 357 mg/dl (65-105)
[2023-11-13] MEDS: DORZOLAMIDE HCL 2% OPHTH DROPS 2 DROP EACH EYE (21:55)
[2023-11-13] MEDS: MICONAZOLE NITRATE 2% CREAM 30 GM TUBE 1 APPLIC TOPICAL (21:55)
[2023-11-13] MEDS: IPRATROPIUM 0.5 MG/ALBUTEROL SULFATE 2.5 MG AMPUL.NEB 3 ML INHALATION (22:26)
[2023-11-13] MEDS: busPIRone HCL 5 MG TABLET PO (22:59)
[2023-11-13] MEDS: ESCITALOPRAM OXALATE 10 MG TABLET PO (22:59)
[2023-11-13] MEDS: FLECAINIDE ACETATE 50 MG TABLET PO (22:59)
[2023-11-13] MEDS: APIXABAN 5 MG TABLET PO (23:00)
[2023-11-14] VITALS (25 sets, daily range): BP systolic 103–143; BP diastolic 47–70; PULSE 55–110; RESP 18–28; TEMP 30.8–36.8; O2SAT 90–94; BMI 30.1
[2023-11-14] MEDS: methylPREDNISolone SOD SUCC 125 MG VIAL 60 MG IV PUSH ×3 (06:16→17:31)
[2023-11-14] MEDS: BUDESONIDE RESPULE NEB 0.5 MG/2 ML AMP INHALATION (07:03)
[2023-11-14] MEDS: IPRATROPIUM 0.5 MG/ALBUTEROL SULFATE 2.5 MG AMPUL.NEB 3 ML INHALATION ×3 (07:04→20:05)
[2023-11-14] MEDS: FLECAINIDE ACETATE 50 MG TABLET PO ×2 (08:12→20:31)
[2023-11-14] MEDS: MICONAZOLE NITRATE 2% CREAM 30 GM TUBE 1 APPLIC TOPICAL ×2 (08:12→21:00)
[2023-11-14] MEDS: ANASTROZOLE (*CHEMO) 1 MG TABLET PO (08:13)
[2023-11-14] MEDS: APIXABAN 5 MG TABLET PO ×2 (08:14→20:32)
[2023-11-14] MEDS: PANTOPRAZOLE 40 MG TABLET PO (08:14)
[2023-11-14] MEDS: ACETAMINOPHEN 500 MG TABLET 1000 MG PO ×2 (08:14→20:31)
[2023-11-14] MEDS: ATROPINE SULFATE 1% OPHTH SOLN 5 ML BOTTLE 4 DROP SUBLINGUAL (08:15)
[2023-11-14] MEDS: busPIRone HCL 5 MG TABLET PO ×3 (08:15→17:31)
[2023-11-14] MEDS: COLLAGENASE OINT 30 GM TUBE 1 APPLIC TOPICAL (08:15)
[2023-11-14] MEDS: DORZOLAMIDE HCL 2% OPHTH DROPS 2 DROP EACH EYE ×3 (08:16→20:32)
[2023-11-14] MEDS: MUPIROCIN 2% OINT 22 GM TUBE 2 APPLIC TOPICAL (08:16)
[2023-11-14] MEDS: CLOBETASOL PROPIONATE 0.05% CREAM 15 GM 1 APPLIC TOPICAL ×2 (08:16→17:33)
[2023-11-14 10:06] LABS: Hemoglobin A1C 8.6 % (<5.7)
[2023-11-14 12:29] LABS: Glucose Point of Care 361 mg/dl (65-105)
[2023-11-14] MEDS: INSULIN ASPART (*BKC) 100 UNITS/ML SUB-Q ×2 (12:31→17:32)
--- NOTE | 2023-11-14 13:08 | PM.IMPN ---
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: with long distance operator use Qualified Code(s): E11.65 - Type 2 diabetes mellitus with hyperglycemia; Z79.4 - shelter (current) use of insulin Code(s): E11.65 - Type 2 diabetes mellitus with hyperglycemia Status: Acute (5) Paroxysmal atrial fibrillation: Code(s): I48.0 - Paroxysmal atrial fibrillation Status: Acute (6) CATY (obstructive sleep apnea): Code(s): G47.33 - Obstructive sleep apnea (adult) (pediatric) Status: Acute (7) GERD (gastroesophageal reflux disease): Code(s): K21.9 - Gastro-esophageal reflux disease without esophagitis Status: Acute Plan Patient presented with worsening shortness of breath since yesterday. History of CHF was coughing snf and noted some stridor. She received DuoNeb in route. Upon arrival patient still has some expiratory stridor recent epi was given with resolution of stridor. Upon ED evaluation her vitals indicated hypertension mildly tachycardic afebrile was placed on oxygen via nasal cannula requiring 3 L oxygen. Laboratory evaluation showed leukocytosis of 28,000 hemoglobin of 15.7 platelets 322 Chem panel unremarkable. Lactic acid was elevated 3.6. LFTs normal influenza RSV COVID swab negative group a strep was negative. UA positive for UTI. Chest x-ray showed mild congestive changes. Soft tissue neck x-ray showed slightly prominent prevertebral soft tissues in the lower cervical area otherwise no egg significant abnormality. Soft tissue neck CT showed inflammatory edema without evident abscess in the retropharyngeal/prevertebral soft tissue in the mid to lower neck and cephalad from the poorly defined proximally 1.7 x 1.7 cm soft tissue density posterior to the inferior left thyroid lobe exerting mass effect upon left posterior margin of the esophagus with some associated asymmetric mild wall thickening of the left side of the esophagus. This could be either infectious/inflammatory or malignant etiology. Consider endoscopy for further evaluation. AP narrowing of the trachea and mainstem bronchi in thorax likely related to combination of tracheal bronchomalacia and expiratory phase of imaging. Likely benign multinodular goiter was noted probably mucus in bilateral sphenoid sinuses consistent with acute sinusitis. Case was discussed with cardiothoracic surgeon at [facility] and recommended ENT consultation. ENT has been consulted here and awaiting their recommendations. The case was also discussed with ENT here and she has been started on IV antibiotics and steroid. Received ceftriaxone will place on Unasyn for retropharyngeal infection Dysphagia noted for a while. Speech therapy consultation and awaiting ENT evaluation Type 2 diabetes insulin regimen adjust as needed Hypothyroidism Congestive heart failure chronic UTI/sinusitis Multinodular goiter thyroid ultrasound reviewed repeat ultrasound in 1 year Esophageal wall thickening may need endoscopy evaluation will await ENT recommendations 1st DVT prophylaxis on Eliquis Subjective Date/time seen: 11/14/23 13:08 Interval history: Chart reviewed. No further wheezing or stridor noted. Patient presented with worsening shortness of breath since yesterday. History of CHF was coughing snf and noted some stridor. She received DuoNeb in route. Upon arrival patient still has some expiratory stridor recent epi was given with resolution of stridor. Upon ED evaluation her vit
--- NOTE | 2023-11-14 13:51 | PCSTNOTE ---
Please refer to the Bedside Swallow Evaluation in the EMR. Please note, silent aspiration cannot be ruled out at bedside.
[2023-11-14 14:18] LABS: Basophils Percent Auto 0.1 % (0.2-1.2); Hematocrit 43.6 % (37.0-47.0); Immature Granulocyte Absolute 0.72 K/mm3 (0.00-0.031); Immature Granulocyte Percent A 2.6 % (0-0.5); Lymphocytes Absolute Auto 1.28 K/mm3 (0.9-3.2); Lymphocytes Percent Auto 4.6 % (18.3-44.2); Mean Corpuscular HGB Conc 32.1 g/dl (32-36); Mean Corpuscular Hemoglobin 26.4 pg (26-34); Mean Corpuscular Volume 82.1 fl (80-100); Mean Platelet Volume 10.5 fl (7.4-10.4); Monocytes Absolute Auto 1.9 K/mm3 (0.1-0.6); Monocytes Percent Auto 6.9 % (2.6-8.5); Neutrophils Absolute Auto 23.6 K/mm3 (1.3-6.7); Neutrophils Percent Auto 85.8 % (45.5-73.1); Platelet Count Result 272 k/mm3 (150-375); Red Blood Count 5.31 M/mm3 (4.2-5.4); Red Cell Distribution Width 16.4 % (11.5-14.5); White Blood Count 27.6 K/mm3 (4.5-10.0)
[2023-11-14] MEDS: AMPICILLIN SULB 3 GM/NS 100 ML 3 GM/100 ML VIAL IVPB ×2 (14:19→18:35)
[2023-11-14 14:43] LABS: Alanine Aminotransferase 22 U/L (6-35); Albumin Level 3.8 g/dL (3.5-5.1); Alkaline Phosphatase 81 U/L (38-126); Anion Gap 11 mmol/L (4-12); Aspartate Amino Transferase 26 U/L (14-36); Bilirubin,Total 0.7 mg/dL (0.2-1.3); Blood Urea Nitrogen 20 mg/dL (7-17); Calcium 9.7 mg/dL (8.4-10.2); Carbon Dioxide 17 mmol/L (22-30); Chloride 106 mmol/L (98-107); Estimated CRCL calculation 56 ml/min; Estimated Glomerular Filt Rate > 60; Glucose 370 mg/dL (65-110); Sodium 134 mmol/L (137-145)
--- NOTE | 2023-11-14 16:50 | PC.NURSE ---
No ENT report entered. DrGeorge called. States he will not be seeing patient. States he told the ED Dr patient should be seen outpatient and would need biopsies etc. Dr Go states patient mass is likely chronic. States patient needs no intervention from ENT at this time.
[2023-11-14 17:17] LABS: Glucose Point of Care 352 mg/dl (65-105)
[2023-11-14] MEDS: ESCITALOPRAM OXALATE 10 MG TABLET PO (20:32)
[2023-11-15] VITALS (19 sets, daily range): BP systolic 133–159; BP diastolic 58–79; PULSE 74–114; RESP 16–20; TEMP 36.1–36.4; O2SAT 92–99
[2023-11-15] MEDS: AMPICILLIN SULB 3 GM/NS 100 ML 3 GM/100 ML VIAL IVPB ×4 (00:37→17:07)
[2023-11-15] MEDS: INSULIN GLARGINE (*BKC) 100 UNITS/ML 30 UNITS SUB-Q ×2 (00:43→08:52)
[2023-11-15] MEDS: INSULIN ASPART (*BKC) 100 UNITS/ML SUB-Q ×4 (00:43→21:04)
[2023-11-15] MEDS: methylPREDNISolone SOD SUCC 125 MG VIAL 60 MG IV PUSH ×2 (00:50→06:41)
[2023-11-15 01:04] LABS: Glucose Point of Care 333 mg/dl (65-105)
[2023-11-15 04:42] LABS: Basophils Absolute Auto 0.1 K/mm3 (0.0-0.1); Basophils Percent Auto 0.2 % (0.2-1.2); Hematocrit 42.9 % (37.0-47.0); Hemoglobin 13.7 g/dL (12.0-15.0); Immature Granulocyte Absolute 0.95 K/mm3 (0.00-0.031); Immature Granulocyte Percent A 3.2 % (0-0.5); Mean Corpuscular HGB Conc 31.9 g/dl (32-36); Mean Corpuscular Volume 81.6 fl (80-100); Mean Platelet Volume 10.6 fl (7.4-10.4); Monocytes Absolute Auto 2.8 K/mm3 (0.1-0.6); Monocytes Percent Auto 9.2 % (2.6-8.5); Neutrophils Absolute Auto 25.3 K/mm3 (1.3-6.7); Neutrophils Percent Auto 84.4 % (45.5-73.1); Platelet Count Result 314 k/mm3 (150-375); Red Blood Count 5.26 M/mm3 (4.2-5.4); Red Cell Distribution Width 16.2 % (11.5-14.5)
[2023-11-15 04:54] LABS: Alanine Aminotransferase 20 U/L (6-35); Albumin Level 3.7 g/dL (3.5-5.1); Alkaline Phosphatase 78 U/L (38-126); Anion Gap 7 mmol/L (4-12); Aspartate Amino Transferase 19 U/L (14-36); Bilirubin,Total 0.5 mg/dL (0.2-1.3); Blood Urea Nitrogen 22 mg/dL (7-17); Calcium 9.8 mg/dL (8.4-10.2); Carbon Dioxide 21 mmol/L (22-30); Chloride 107 mmol/L (98-107); Estimated CRCL calculation 56 ml/min; Estimated Glomerular Filt Rate > 60; Glucose 289 mg/dL (65-110); Magnesium 2.5 mg/dL (1.6-2.3); Sodium 135 mmol/L (137-145)
[2023-11-15 07:50] LABS: Glucose Point of Care 298 mg/dl (65-105)
[2023-11-15] MEDS: IPRATROPIUM 0.5 MG/ALBUTEROL SULFATE 2.5 MG AMPUL.NEB 3 ML INHALATION ×3 (08:21→20:17)
[2023-11-15] MEDS: BUDESONIDE RESPULE NEB 0.5 MG/2 ML AMP INHALATION (08:21)
[2023-11-15] MEDS: busPIRone HCL 5 MG TABLET PO ×3 (08:47→17:08)
[2023-11-15] MEDS: ANASTROZOLE (*CHEMO) 1 MG TABLET PO (08:47)
[2023-11-15] MEDS: FLECAINIDE ACETATE 50 MG TABLET PO ×2 (08:47→20:55)
[2023-11-15] MEDS: APIXABAN 5 MG TABLET PO ×2 (08:47→20:55)
[2023-11-15] MEDS: ACETAMINOPHEN 500 MG TABLET 1000 MG PO (08:47)
[2023-11-15] MEDS: PANTOPRAZOLE 40 MG TABLET PO (08:47)
[2023-11-15] MEDS: CLOBETASOL PROPIONATE 0.05% CREAM 15 GM 1 APPLIC TOPICAL ×2 (08:48→23:17)
[2023-11-15] MEDS: DORZOLAMIDE HCL 2% OPHTH DROPS 2 DROP EACH EYE ×3 (08:48→23:17)
[2023-11-15] MEDS: COLLAGENASE OINT 30 GM TUBE 1 APPLIC TOPICAL (08:48)
[2023-11-15] MEDS: MUPIROCIN 2% OINT 22 GM TUBE 2 APPLIC TOPICAL (08:49)
[2023-11-15] MEDS: MICONAZOLE NITRATE 2% CREAM 30 GM TUBE 1 APPLIC TOPICAL ×2 (08:49→21:00)
[2023-11-15] MEDS: INSULIN ASPART (*BKC) 100 UNITS/ML 15 UNITS SUB-Q (12:00)
[2023-11-15 12:19] LABS: Glucose Point of Care 433 mg/dl (65-105)
[2023-11-15] MEDS: diphenhydrAMINE HCl INJ 50 MG/ML VIAL 25 MG IV PUSH (12:24)
--- NOTE | 2023-11-15 14:43 | PM.IMPN ---
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: with exterminator helper termite use Qualified Code(s): E11.65 - Type 2 diabetes mellitus with hyperglycemia; Z79.4 - assisted (current) use of insulin Code(s): E11.65 - Type 2 diabetes mellitus with hyperglycemia Status: Acute (5) Paroxysmal atrial fibrillation: Code(s): I48.0 - Paroxysmal atrial fibrillation Status: Acute (6) CATY (obstructive sleep apnea): Code(s): G47.33 - Obstructive sleep apnea (adult) (pediatric) Status: Acute (7) GERD (gastroesophageal reflux disease): Code(s): K21.9 - Gastro-esophageal reflux disease without esophagitis Status: Acute Plan Patient presented with worsening shortness of breath since yesterday. History of CHF was coughing residential and noted some stridor. She received DuoNeb in route. Upon arrival patient still has some expiratory stridor recent epi was given with resolution of stridor. Upon ED evaluation her vitals indicated hypertension mildly tachycardic afebrile was placed on oxygen via nasal cannula requiring 3 L oxygen. Laboratory evaluation showed leukocytosis of 28,000 hemoglobin of 15.7 platelets 322 Chem panel unremarkable. Lactic acid was elevated 3.6. LFTs normal influenza RSV COVID swab negative group a strep was negative. UA positive for UTI. Chest x-ray showed mild congestive changes. Soft tissue neck x-ray showed slightly prominent prevertebral soft tissues in the lower cervical area otherwise no egg significant abnormality. Soft tissue neck CT showed inflammatory edema without evident abscess in the retropharyngeal/prevertebral soft tissue in the mid to lower neck and cephalad from the poorly defined proximally 1.7 x 1.7 cm soft tissue density posterior to the inferior left thyroid lobe exerting mass effect upon left posterior margin of the esophagus with some associated asymmetric mild wall thickening of the left side of the esophagus. This could be either infectious/inflammatory or malignant etiology. Consider endoscopy for further evaluation. AP narrowing of the trachea and mainstem bronchi in thorax likely related to combination of tracheal bronchomalacia and expiratory phase of imaging. Likely benign multinodular goiter was noted probably mucus in bilateral sphenoid sinuses consistent with acute sinusitis. Case was discussed with cardiothoracic surgeon at [facility] and recommended ENT consultation. ENT has been consulted here and awaiting their recommendations. The case was also discussed with ENT here and she has been started on IV antibiotics and steroid. With no further wheezing and stridor will stop IV steroid. Will continue on IV Unasyn Received ceftriaxone will place on Unasyn for retropharyngeal infection Dysphagia noted for a while. Speech therapy consultation and did well. Started on a diet Type 2 diabetes insulin regimen adjust as needed Hypothyroidism Congestive heart failure chronic UTI/sinusitis antibiotics as ordered Multinodular goiter thyroid ultrasound reviewed repeat ultrasound in 1 year Esophageal wall thickening may need endoscopy evaluation will await ENT recommendations 1st DVT prophylaxis on Eliquis Subjective Date/time seen: 11/15/23 14:43 Interval history: No overnight events. No further wheezes her stridor. Hyperglycemia noted. Review of Systems Review of Systems: All systems reviewed & are unremarkable except as noted in HPI and below Exam Narrative: APPEARANCE: no distress
[2023-11-15 16:57] LABS: Glucose Point of Care 354 mg/dl (65-105)
[2023-11-15] MEDS: INSULIN ASPART (*BKC) 100 UNITS/ML 12 UNITS SUB-Q (17:08)
--- NOTE | 2023-11-15 18:31 | PC.NURSE ---
This patient, Perla Leon, was transferred to [facility] on 11/15/23 at 1820. Personal belongings sent with patient. Report given to Lynsey NUNES. Appropriate documentation sent with patient. patient family updated on room change.
[2023-11-15] MEDS: ESCITALOPRAM OXALATE 10 MG TABLET PO (20:55)
[2023-11-15] MEDS: INSULIN GLARGINE (*BKC) 100 UNITS/ML 40 UNITS SUB-Q (21:03)
[2023-11-15 21:14] LABS: Glucose Point of Care 381 mg/dl (65-105)
[2023-11-16] VITALS (19 sets, daily range): BP systolic 128–147; BP diastolic 48–62; PULSE 63–80; RESP 14–20; TEMP 36.7–36.8; O2SAT 96–98
[2023-11-16] MEDS: AMPICILLIN SULB 3 GM/NS 100 ML 3 GM/100 ML VIAL IVPB ×4 (00:43→17:26)
[2023-11-16 05:16] LABS: Hematocrit 40.9 % (37.0-47.0); Hemoglobin 13.2 g/dL (12.0-15.0); Mean Corpuscular HGB Conc 32.3 g/dl (32-36); Mean Corpuscular Hemoglobin 26.3 pg (26-34); Mean Corpuscular Volume 81.5 fl (80-100); Mean Platelet Volume 10.4 fl (7.4-10.4); Platelet Count Result 273 k/mm3 (150-375); Red Blood Count 5.02 M/mm3 (4.2-5.4); Red Cell Distribution Width 16.3 % (11.5-14.5); White Blood Count 23.7 K/mm3 (4.5-10.0)
[2023-11-16 05:47] LABS: Band Neutrophils Percent 1 % (0-6); Eosinophils Absolute Manual 0.47 K/mm3 (0.02-0.50); Eosinophils Percent Manual 2 % (0-4); Lymphocytes Absolute Manual 1.89 K/mm3 (1.1-4.5); Monocytes Percent Manual 11 % (3-9); Myelocytes Percent 1 %; Neutrophils Absolute Manual 18.48 K/mm3 (1.7-7.2); Neutrophils Percent Manual 77 % (46-73); Total Cells Counted 100
[2023-11-16 05:48] LABS: Anisocytosis 1+; Platelet Estimate Slightly Decreased (Adequate); Schistocytes None Seen
[2023-11-16 05:58] LABS: Alanine Aminotransferase 19 U/L (6-35); Albumin Level 3.3 g/dL (3.5-5.1); Alkaline Phosphatase 69 U/L (38-126); Anion Gap 7 mmol/L (4-12); Aspartate Amino Transferase 19 U/L (14-36); Bilirubin,Total 0.5 mg/dL (0.2-1.3); Blood Urea Nitrogen 21 mg/dL (7-17); Calcium 9.9 mg/dL (8.4-10.2); Carbon Dioxide 22 mmol/L (22-30); Chloride 108 mmol/L (98-107); Estimated CRCL calculation 58 ml/min; Estimated Glomerular Filt Rate > 60; Glucose 152 mg/dL (65-110); Magnesium 2.6 mg/dL (1.6-2.3); Potassium 3.8 mmol/L (3.4-5.0); Sodium 137 mmol/L (137-145)
[2023-11-16 08:12] LABS: Glucose Point of Care 105 mg/dl (65-105)
[2023-11-16] MEDS: BUDESONIDE RESPULE NEB 0.5 MG/2 ML AMP INHALATION (08:42)
[2023-11-16] MEDS: IPRATROPIUM 0.5 MG/ALBUTEROL SULFATE 2.5 MG AMPUL.NEB 3 ML INHALATION ×3 (08:42→20:25)
[2023-11-16] MEDS: PANTOPRAZOLE 40 MG TABLET PO (09:10)
[2023-11-16] MEDS: APIXABAN 5 MG TABLET PO ×2 (09:10→21:38)
[2023-11-16] MEDS: busPIRone HCL 5 MG TABLET PO ×3 (09:10→17:26)
[2023-11-16] MEDS: FLECAINIDE ACETATE 50 MG TABLET PO ×2 (09:10→21:38)
[2023-11-16] MEDS: CLOBETASOL PROPIONATE 0.05% CREAM 15 GM 1 APPLIC TOPICAL ×2 (09:11→21:33)
[2023-11-16] MEDS: DORZOLAMIDE HCL 2% OPHTH DROPS 2 DROP EACH EYE ×3 (09:11→21:34)
[2023-11-16] MEDS: MICONAZOLE NITRATE 2% CREAM 30 GM TUBE 1 APPLIC TOPICAL ×2 (09:11→21:32)
[2023-11-16] MEDS: MUPIROCIN 2% OINT 22 GM TUBE 2 APPLIC TOPICAL (09:12)
[2023-11-16] MEDS: COLLAGENASE OINT 30 GM TUBE 1 APPLIC TOPICAL (09:12)
[2023-11-16] MEDS: ANASTROZOLE (*CHEMO) 1 MG TABLET PO (10:07)
[2023-11-16 12:27] LABS: Glucose Point of Care 196 mg/dl (65-105)
--- NOTE | 2023-11-16 12:29 | PM.IMPN ---
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 Qualified Code(s): E11.65 - Type 2 diabetes mellitus with hyperglycemia; Z79.4 - group home (current) use of insulin Code(s): E11.65 - Type 2 diabetes mellitus with hyperglycemia Status: Acute (5) Paroxysmal atrial fibrillation: Code(s): I48.0 - Paroxysmal atrial fibrillation Status: Acute (6) CATY (obstructive sleep apnea): Code(s): G47.33 - Obstructive sleep apnea (adult) (pediatric) Status: Acute (7) GERD (gastroesophageal reflux disease): Code(s): K21.9 - Gastro-esophageal reflux disease without esophagitis Status: Acute Plan Patient presented with worsening shortness of breath since yesterday. History of CHF was coughing fpc and noted some stridor. She received DuoNeb in route. Upon arrival patient still has some expiratory stridor recent epi was given with resolution of stridor. Upon ED evaluation her vitals indicated hypertension mildly tachycardic afebrile was placed on oxygen via nasal cannula requiring 3 L oxygen. Laboratory evaluation showed leukocytosis of 28,000 hemoglobin of 15.7 platelets 322 Chem panel unremarkable. Lactic acid was elevated 3.6. LFTs normal influenza RSV COVID swab negative group a strep was negative. UA positive for UTI. Chest x-ray showed mild congestive changes. Soft tissue neck x-ray showed slightly prominent prevertebral soft tissues in the lower cervical area otherwise no egg significant abnormality. Soft tissue neck CT showed inflammatory edema without evident abscess in the retropharyngeal/prevertebral soft tissue in the mid to lower neck and cephalad from the poorly defined proximally 1.7 x 1.7 cm soft tissue density posterior to the inferior left thyroid lobe exerting mass effect upon left posterior margin of the esophagus with some associated asymmetric mild wall thickening of the left side of the esophagus. This could be either infectious/inflammatory or malignant etiology. Consider endoscopy for further evaluation. AP narrowing of the trachea and mainstem bronchi in thorax likely related to combination of tracheal bronchomalacia and expiratory phase of imaging. Likely benign multinodular goiter was noted probably mucus in bilateral sphenoid sinuses consistent with acute sinusitis. Case was discussed with cardiothoracic surgeon at [facility] and recommended ENT consultation. ENT has been consulted here and awaiting their recommendations. The case was also discussed with ENT here and she has been started on IV antibiotics and steroid. With no further wheezing and stridor will stop IV steroid. Will continue on IV Unasyn. WBC count improved down to 23 K today. Will continue to monitor this. Received ceftriaxone will place on Unasyn for retropharyngeal infection Dysphagia noted for a while. Speech therapy consultation and did well. Started on a diet Type 2 diabetes insulin regimen adjust as needed Hypothyroidism Congestive heart failure chronic Status post colostomy Suprapubic catheter in-situ UTI/sinusitis antibiotics as ordered Multinodular goiter thyroid ultrasound reviewed repeat ultrasound in 1 year Esophageal wall thickening may need endoscopy evaluation potentially as outpatient basis DVT prophylaxis on Eliquis Subjective Date/time seen: 11/16/23 12:29 Interval history: No new complaints. Blood sugar trend reviewed. Vitals stable. On 2 L oxygen Review of Systems Review of Systems
[2023-11-16] MEDS: INSULIN ASPART (*BKC) 100 UNITS/ML 12 UNITS SUB-Q ×2 (12:43→17:27)
[2023-11-16] MEDS: FUROSEMIDE INJ 40 MG/4 ML VIAL IV PUSH (16:10)
[2023-11-16 16:54] LABS: Glucose Point of Care 134 mg/dl (65-105)
[2023-11-16 21:11] LABS: Glucose Point of Care 198 mg/dl (65-105)
[2023-11-16] MEDS: ESCITALOPRAM OXALATE 10 MG TABLET PO (21:38)
[2023-11-16] MEDS: INSULIN GLARGINE (*BKC) 100 UNITS/ML 40 UNITS SUB-Q (21:40)
[2023-11-16] MEDS: ACETAMINOPHEN 500 MG TABLET 1000 MG PO (21:48)
[2023-11-17] VITALS (17 sets, daily range): BP systolic 122–138; BP diastolic 45–60; PULSE 60–86; RESP 16–20; TEMP 36.3–36.6; O2SAT 92–99
--- NOTE | 2023-11-17 | ECHO_ITS ---
Patient Info Name: Perla Leon Age: 82 years : 1940 Gender: Female Ht: 62 in Wt: 177 lbs BSA: 1.91 m2 HR: 63 bpm BP: 138 / 54 mmHg Heart Rhythm: Sinus Rhythm Technical Quality: Fair Exam Date: 11/17/2023 8:14 AM Exam Location: Echo Lab Patient Status: Inpatient Admit Date: 11/14/2023 Staff Ordering Physician: Andrei Serra MD Offal Trimmer: Nivia Brown RDCS Attending Provider: Irene Shah MD Exam Type: CA echo doppler color flow Study Info Indications R06.02 - Shortness of breath Complete two-dimensional, color flow and Doppler transthoracic echocardiogram is performed. Summary 1. Complete two-dimensional, color flow and Doppler transthoracic echocardiogram is performed. 2. Concentric left ventricular hypertrophy with good systolic function and grade 1 diastolic noncompliance. 3. Left atrial enlargement. 4. Trace mitral regurgitation. 5. Moderate to severe aortic valve stenosis, valve area 1.1 cm2. Left Ventricle Left ventricular chamber dimension is normal. Left ventricular systolic function is normal, estimated at 65-70%. There is moderate concentric increased left ventricular wall thickness. The left ventricular diastolic function is grade I diastolic dysfunction. Right Ventricle Right ventricular chamber dimension is normal. Left Atria Left atrial chamber dimension is mildly enlarged. Right Atria Right atrial chamber dimension is normal. Aortic Valve The aortic valve is trileaflet. There is moderate aortic valve sclerosis. There is moderate to severe aortic valve stenosis with a peak velocity of 329 cm/s, mean gradient of 24 mmHg, and aortic valve area of 1.4 cm2. Pulmonic Valve The pulmonic valve is normal. There is mild pulmonic regurgitation. Mitral Valve The mitral valve has normal leaflets. There is trace mitral valve regurgitation. The mitral valve annulus is moderately calcified. Tricuspid Valve The tricuspid valve leaflets are normal. Pericardium/Pleural The pericardium appears normal. Aorta The aortic root size at the sinus of Valsalva is normal. Left Ventricular Outflow Tract Name Value Normal LVOT 2D LVOT Diameter 2.0 cm LVOT Doppler LVOT Peak Gradient 5 mmHg LVOT Mean Gradient 3 mmHg LVOT VTI 29 cm LVOT VTI/AV VTI Ratio 0.4 LVOT Stroke Volume 92 ml LVOT CO 6.2 l/min LVOT CI 3.2 l/min/m2 Pulmonic Valve Name Value Normal RVOT Doppler RVOT Peak Gradient 2 mmHg PV Doppler PV Peak Gradient 5 mmHg Mitral Valve Name Value Normal
[2023-11-17] MEDS: AMPICILLIN SULB 3 GM/NS 100 ML 3 GM/100 ML VIAL IVPB ×5 (00:33→23:33)
[2023-11-17 06:32] LABS: Basophils Absolute Auto 0.1 K/mm3 (0.0-0.1); Basophils Percent Auto 0.3 % (0.2-1.2); Eosinophils Absolute Auto 0.3 K/mm3 (0-0.3); Eosinophils Percent Auto 1.9 % (0-4.4); Hematocrit 41.3 % (37.0-47.0); Hemoglobin 13.1 g/dL (12.0-15.0); Immature Granulocyte Absolute 0.49 K/mm3 (0.00-0.031); Immature Granulocyte Percent A 3.3 % (0-0.5); Lymphocytes Absolute Auto 1.63 K/mm3 (0.9-3.2); Lymphocytes Percent Auto 10.8 % (18.3-44.2); Mean Corpuscular HGB Conc 31.7 g/dl (32-36); Mean Corpuscular Hemoglobin 26.1 pg (26-34); Mean Corpuscular Volume 82.4 fl (80-100); Mean Platelet Volume 10.6 fl (7.4-10.4); Monocytes Absolute Auto 3.5 K/mm3 (0.1-0.6); Monocytes Percent Auto 23.2 % (2.6-8.5); Neutrophils Absolute Auto 9.1 K/mm3 (1.3-6.7); Neutrophils Percent Auto 60.5 % (45.5-73.1); Platelet Count Result 237 k/mm3 (150-375); Red Blood Count 5.01 M/mm3 (4.2-5.4); Red Cell Distribution Width 16.2 % (11.5-14.5); White Blood Count 15.1 K/mm3 (4.5-10.0)
[2023-11-17 06:48] LABS: Alanine Aminotransferase 18 U/L (6-35); Albumin Level 3.1 g/dL (3.5-5.1); Alkaline Phosphatase 66 U/L (38-126); Anion Gap 4 mmol/L (4-12); Aspartate Amino Transferase 18 U/L (14-36); Bilirubin,Total 0.5 mg/dL (0.2-1.3); Blood Urea Nitrogen 17 mg/dL (7-17); Calcium 9.1 mg/dL (8.4-10.2); Carbon Dioxide 27 mmol/L (22-30); Chloride 106 mmol/L (98-107); Estimated CRCL calculation 50 ml/min; Estimated Glomerular Filt Rate > 60; Glucose 105 mg/dL (65-110); Magnesium 2.4 mg/dL (1.6-2.3); Potassium 3.4 mmol/L (3.4-5.0); Sodium 137 mmol/L (137-145)
--- NOTE | 2023-11-17 07:37 | WPDCN ---
Assessment and Plan Assessment and plan (1) Dysphagia: Qualifiers: Dysphagia type: other dysphagia Qualified Code(s): R13.19 - Other dysphagia Code(s): R13.10 - Dysphagia, unspecified Status: Acute (2) Esophageal mass: Code(s): K22.89 - Other specified disease of esophagus Status: Acute Plan Perla has a proximal esophageal mass on the right, vs. a posterior thyroid mass. Based on imaging findings likely to be related to esophagus. Recommend either US or CT guided FNA (due to location may require CT guidance but will defer to radiology) for definitive diagnosis. Could be done as an outpatient. clinically no concern for retropharyngeal abscess, she has no signs of respiratory difficulty at this time. If team is concerned, can consider repeat CT neck. Agree with antibiotic management. Please call if there are further questions or concerns for ENT. Zander Go MD HPI Data of Consult Date/Time: 11/17/23 07:37 Requesting Physician: Irene Shah MD Primary Care Provider: UNKNOWN,DOCTOR Consult Narrative Reason for consult: Neck mass/SOB Narrative: Perla Leon is a 82 year old female who lives in assisted care facility, presented initially to ED with UTI, came back with worsened UTI and some inspiratory stridor. CT neck showed a right neck mass posterior to thyroid lobe, abutting the esophagus and causing some mass effect on proximal esophagus. There was also some concern for retropharyngeal swelling without abscess. She was put on steroids, antibiotics. ENT consulted but no nsaopharyngoscope is available in the hospital for floor consults. She has improved since admission on medical management, does note a hx of dysphagia but feels that is a little better too. Review of Systems Review of Systems: All systems reviewed & are unremarkable except as noted in HPI and below PMFSH Past Medical History Medical History Atherosclerotic heart disease Atrial fibrillation Breast cancer Chronic anticoagulation Chronic idiopathic constipation Congestive heart failure Familial spastic paraplegia Gastroesophageal reflux disease Glaucoma Hereditary spastic paraplegia History of pulmonary embolism Hyperparathyroidism Hypertension Hypothyroidism Multiple sclerosis Suprapubic catheter in place. Neurogenic bladder Obstructive sleep apnea Noncompliant with CPAP. 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 History of hysterectomy History of suprapubic catheter Family History Family History Father Spastic paralysis Mother Breast cancer Social History Social History Social History: Surrogate medical decision maker: Ange Reyes or Nancy Alvaro, daughters. Code status: Full code. Smoking status: Never smoker Second hand tobacco smoke exposure: No Alcohol intake: never Substance use: never Substance use type: does not use Do You Feel Safe in your Home?: Yes Lack of Transportation: No Lack of Food: Never True Current Housing: I Have Housing Concerned About Future Housing: No Difficulty Paying Gas/Electric Bills: No Difficulty Paying for Meds: No Currently Unemployed: No Education: Decline to Answer Difficulty w/ Childcare or Family Care: No Living arrangements: senior living Additional living arrangements comments: [facility]. Has 3 daughters. Additional occupation/education comments: [employer]. Spiritual care concerns: No Meds Home Medications and Allergies Home Medications
[2023-11-17] MEDS: IPRATROPIUM 0.5 MG/ALBUTEROL SULFATE 2.5 MG AMPUL.NEB 3 ML INHALATION ×3 (07:43→20:35)
[2023-11-17 08:28] LABS: Glucose Point of Care 103 mg/dl (65-105)
[2023-11-17] MEDS: ANASTROZOLE (*CHEMO) 1 MG TABLET PO (09:05)
[2023-11-17] MEDS: FLECAINIDE ACETATE 50 MG TABLET PO (09:05)
[2023-11-17] MEDS: FUROSEMIDE 40 MG TABLET PO (09:05)
[2023-11-17] MEDS: PANTOPRAZOLE 40 MG TABLET PO (09:06)
[2023-11-17] MEDS: APIXABAN 5 MG TABLET PO ×2 (09:06→21:25)
[2023-11-17] MEDS: MUPIROCIN 2% OINT 22 GM TUBE 2 APPLIC TOPICAL (09:07)
[2023-11-17] MEDS: MICONAZOLE NITRATE 2% CREAM 30 GM TUBE 1 APPLIC TOPICAL ×2 (09:07→21:45)
[2023-11-17] MEDS: COLLAGENASE OINT 30 GM TUBE 1 APPLIC TOPICAL (09:08)
[2023-11-17] MEDS: DORZOLAMIDE HCL 2% OPHTH DROPS 2 DROP EACH EYE ×3 (09:09→21:45)
[2023-11-17] MEDS: CLOBETASOL PROPIONATE 0.05% CREAM 15 GM 1 APPLIC TOPICAL ×2 (09:10→21:44)
[2023-11-17] MEDS: busPIRone HCL 5 MG TABLET PO ×3 (09:15→16:45)
[2023-11-17] MEDS: BUDESONIDE RESPULE NEB 0.5 MG/2 ML AMP INHALATION (10:58)
--- NOTE | 2023-11-17 11:45 | PM.IMPN ---
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 insulin use: with storage facility rental clerk use Qualified Code(s): E11.65 - Type 2 diabetes mellitus with hyperglycemia; Z79.4 - traffic law attorney (current) use of insulin Code(s): E11.65 - Type 2 diabetes mellitus with hyperglycemia Status: Acute (5) Paroxysmal atrial fibrillation: Code(s): I48.0 - Paroxysmal atrial fibrillation Status: Acute (6) CATY (obstructive sleep apnea): Code(s): G47.33 - Obstructive sleep apnea (adult) (pediatric) Status: Acute (7) GERD (gastroesophageal reflux disease): Code(s): K21.9 - Gastro-esophageal reflux disease without esophagitis Status: Acute Plan Patient presented with worsening shortness of breath since yesterday. History of CHF was coughing usp and noted some stridor. She received DuoNeb in route. Upon arrival patient still has some expiratory stridor recent epi was given with resolution of stridor. Upon ED evaluation her vitals indicated hypertension mildly tachycardic afebrile was placed on oxygen via nasal cannula requiring 3 L oxygen. Laboratory evaluation showed leukocytosis of 28,000 hemoglobin of 15.7 platelets 322 Chem panel unremarkable. Lactic acid was elevated 3.6. LFTs normal influenza RSV COVID swab negative group a strep was negative. UA positive for UTI. Chest x-ray showed mild congestive changes. Soft tissue neck x-ray showed slightly prominent prevertebral soft tissues in the lower cervical area otherwise no egg significant abnormality. Soft tissue neck CT showed inflammatory edema without evident abscess in the retropharyngeal/prevertebral soft tissue in the mid to lower neck and cephalad from the poorly defined proximally 1.7 x 1.7 cm soft tissue density posterior to the inferior left thyroid lobe exerting mass effect upon left posterior margin of the esophagus with some associated asymmetric mild wall thickening of the left side of the esophagus. This could be either infectious/inflammatory or malignant etiology. Consider endoscopy for further evaluation. AP narrowing of the trachea and mainstem bronchi in thorax likely related to combination of tracheal bronchomalacia and expiratory phase of imaging. Likely benign multinodular goiter was noted probably mucus in bilateral sphenoid sinuses consistent with acute sinusitis. Case was discussed with cardiothoracic surgeon at [facility] and recommended ENT consultation. ENT has been consulted here and awaiting their recommendations. The case was also discussed with ENT here and she has been started on IV antibiotics and steroid. With no further wheezing and stridor will stop IV steroid. Will continue on IV Unasyn. WBC count continues to improve. Will continue to monitor this. Received ceftriaxone will place on Unasyn for retropharyngeal infection Dysphagia noted for a while. Speech therapy consultation and did well. Started on a diet. GI consultation Type 2 diabetes insulin regimen adjust as needed Hypothyroidism Congestive heart failure chronic Status post colostomy Suprapubic catheter in-situ gets changed every 2 weeks UTI/sinusitis antibiotics as ordered Multinodular goiter thyroid ultrasound reviewed repeat ultrasound in 1 year Esophageal wall thickening may need endoscopy evaluation potentially as outpatient basis DVT prophylaxis on Eliquis Subjective Date/time seen: 11/17/23 11:45
[2023-11-17 11:48] LABS: Glucose Point of Care 186 mg/dl (65-105)
[2023-11-17] MEDS: INSULIN ASPART (*BKC) 100 UNITS/ML 12 UNITS SUB-Q ×2 (11:54→17:00)
[2023-11-17] MEDS: CALCIUM CARBONATE (TUMS) 500 MG (200 MG ELEMENTAL) PO (16:49)
[2023-11-17 17:16] LABS: Glucose Point of Care 177 mg/dl (65-105)
[2023-11-17] MEDS: ACETAMINOPHEN 500 MG TABLET 1000 MG PO (21:26)
[2023-11-17] MEDS: ESCITALOPRAM OXALATE 10 MG TABLET PO (21:26)
[2023-11-17] MEDS: INSULIN GLARGINE (*BKC) 100 UNITS/ML 40 UNITS SUB-Q (21:30)
[2023-11-17 22:03] LABS: Glucose Point of Care 155 mg/dl (65-105)
[2023-11-18] VITALS (21 sets, daily range): BP systolic 97–156; BP diastolic 44–90; PULSE 60–78; RESP 16–26; TEMP 36.4–37; O2SAT 92–100
[2023-11-18] MEDS: AMPICILLIN SULB 3 GM/NS 100 ML 3 GM/100 ML VIAL IVPB ×2 (05:17→13:02)
[2023-11-18 05:26] LABS: Basophils Absolute Auto 0.1 K/mm3 (0.0-0.1); Basophils Percent Auto 0.4 % (0.2-1.2); Eosinophils Absolute Auto 0.6 K/mm3 (0-0.3); Eosinophils Percent Auto 3.7 % (0-4.4); Hematocrit 41.6 % (37.0-47.0); Hemoglobin 13.6 g/dL (12.0-15.0); Immature Granulocyte Absolute 0.46 K/mm3 (0.00-0.031); Lymphocytes Absolute Auto 1.68 K/mm3 (0.9-3.2); Mean Corpuscular HGB Conc 32.7 g/dl (32-36); Mean Corpuscular Hemoglobin 26.7 pg (26-34); Mean Corpuscular Volume 81.6 fl (80-100); Mean Platelet Volume 10.5 fl (7.4-10.4); Monocytes Absolute Auto 2.7 K/mm3 (0.1-0.6); Monocytes Percent Auto 17.6 % (2.6-8.5); Neutrophils Absolute Auto 9.8 K/mm3 (1.3-6.7); Neutrophils Percent Auto 64.3 % (45.5-73.1); Platelet Count Result 264 k/mm3 (150-375); Red Cell Distribution Width 15.9 % (11.5-14.5); White Blood Count 15.2 K/mm3 (4.5-10.0)
[2023-11-18 05:44] LABS: Alanine Aminotransferase 19 U/L (6-35); Alkaline Phosphatase 75 U/L (38-126); Anion Gap 4 mmol/L (4-12); Aspartate Amino Transferase 19 U/L (14-36); Bilirubin,Total 0.5 mg/dL (0.2-1.3); Blood Urea Nitrogen 14 mg/dL (7-17); Calcium 9.4 mg/dL (8.4-10.2); Carbon Dioxide 27 mmol/L (22-30); Chloride 105 mmol/L (98-107); Estimated CRCL calculation 57 ml/min; Estimated Glomerular Filt Rate > 60; Glucose 132 mg/dL (65-110); Magnesium 2.3 mg/dL (1.6-2.3); Potassium 3.5 mmol/L (3.4-5.0); Sodium 136 mmol/L (137-145)
[2023-11-18] MEDS: BUDESONIDE RESPULE NEB 0.5 MG/2 ML AMP INHALATION (07:13)
[2023-11-18] MEDS: IPRATROPIUM 0.5 MG/ALBUTEROL SULFATE 2.5 MG AMPUL.NEB 3 ML INHALATION ×3 (07:13→19:19)
[2023-11-18 08:11] LABS: Glucose Point of Care 141 mg/dl (65-105)
--- NOTE | 2023-11-18 08:42 | P.CONGI_ITS ---
I, Torito Moran MD, have provided a substantive portion of the care of this patient and discussed the patient with my Nurse Practitioner. I have reviewed any new relevant radiographic and laboratory results including medications. I agree with her documentation as noted below.?I personally performed the medical decision making and much of the history and exam for this encounter. briefly she has multiple medical comorbidities including MS, subtotal colectomy with ileostomy, neurogenic bladder, etc. Noted to have possible thyroid mass that could be causing external pressure into esophagus, she is not best historian but says that difficulty swallowing for years . Plan is to assess with EGD, differential includes ring/stricture/external compression/malignancy, etc. Assessment and Plan Assessment and plan (1) Dysphagia: Qualifiers: Dysphagia type: other dysphagia Qualified Code(s): R13.19 - Other dysphagia Code(s): R13.10 - Dysphagia, unspecified Status: Acute (2) Esophageal mass: Code(s): K22.89 - Other specified disease of esophagus Status: Acute (3) Belching: Code(s): R14.2 - Eructation Status: Acute Plan 1. Dysphagia/ abnormal imaging digestive /belching: EGD Hx unknown. Patient admits to a longstanding history of dysphagia with solid foods though it sounds like more than a year, denies dysphagia to liquids or pills. admits to increased belching. Globus sensation even when not eating associated with burning sensation. Recent CT soft tissue neck concerning for esophageal mass with associated esophageal wall thickening. ENT is on the patient's case, for re commendation HPI above. BMP, CBC and LFTs normal except sodium at 136 a.m. and WBCs at 15 (steroids given this admission). Patient is on Eliquis daily for Hx of A-Fib. DDX: Esophageal ring or stricture versus neoplasm versus motility disorder versus extrinsic compression * EGD today for further evaluation and biopsy if indicated * Start on empiric PPI therapy * Keep patient NPO * further recommendations to follow endoscopy 3. History of ischemic colitis: Colonoscopy history unknown. S/P subtotal colectomy with end ileostomy in October 2022. No current abdominal pain, nausea, vomiting. No signs of ileostomy complications on exam. * Continue current ileostomy management * Monitor for signs/symptoms of ileostomy complications Thank you very much for allowing me to share in the care of this very nice patient. This report may have been done utilizing a voice recognition system. Attempts have been made to correct errors. However, there may be uncorrected grammatical, spelling, and recognition errors present. 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 She presented to the ER from care home for SOB and was admitted for acute respiratory failure. GI consulted for dysphagia. Since admission the patient was evaluated by ENT who noted a proximal esoph ageal mass on the right versus a posterior thyroid mass. Based on imaging findings likely related to the esophagus. Recommend either ultrasound or CT- guided FNA for definitive diagnosis. Clinicall
--- NOTE | 2023-11-18 08:42 | WPDGICN ---
Assessment and Plan Assessment and plan (1) Dysphagia: Qualifiers: Dysphagia type: other dysphagia Qualified Code(s): R13.19 - Other dysphagia Code(s): R13.10 - Dysphagia, unspecified Status: Acute (2) Esophageal mass: Code(s): K22.89 - Other specified disease of esophagus Status: Acute (3) Belching: Code(s): R14.2 - Eructation Status: Acute Plan 1. Dysphagia/ abnormal imaging digestive /belching: EGD Hx unknown. Patient admits to a longstanding history of dysphagia with solid foods though it sounds like more than a year, denies dysphagia to liquids or pills. admits to increased belching. Globus sensation even when not eating associated with burning sensation. Recent CT soft tissue neck concerning for esophageal mass with associated esophageal wall thickening. ENT is on the patient's case, for recommendation HPI above. BMP, CBC and LFTs normal except sodium at 136 a.m. and WBCs at 15 (steroids given this admission). Patient is on Eliquis daily for Hx of A-Fib. DDX: Esophageal ring or stricture versus neoplasm versus motility disorder versus extrinsic compression EGD today for further evaluation and biopsy if indicated Start on empiric PPI therapy Keep patient NPO further recommendations to follow endoscopy 3. History of ischemic colitis: Colonoscopy history unknown. S/P subtotal colectomy with end ileostomy in October 2022. No current abdominal pain, nausea, vomiting. No signs of ileostomy complications on exam. Continue current ileostomy management Monitor for signs/symptoms of ileostomy complications Thank you very much for allowing me to share in the care of this very nice patient. This report may have been done utilizing a voice recognition system. Attempts have been made to correct errors. However, there may be uncorrected grammatical, spelling, and recognition errors present. 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 She [facility] the ER [facility] for [facility]B and was admitted for acute respiratory failure. GI consulted for dysphagia. Since admission the patient was evaluated by ENT who noted a proximal esophageal mass on the right versus a posterior thyroid mass. Based on imaging findings likely related to the esophagus. Recommend either ultrasound or CT-guided FNA for definitive diagnosis. Clinically no concern for retropharyngeal abscess and no signs of respiratory difficulty at this time. CT soft tissue neck showed inflammatory edema without evident abscess in the retropharyngeal/prevertebral soft tissue in the mid to lower neck and cephalad from the poorly defined proximally 1.7 x 1.7 cm soft tissue density posterior to the inferior left thyroid lobe exerting mass effect upon left posterior margin of the esophagus with some associated asymmetric mild wall thickening of the left side of the esophagus, which could be either infectious/inflammatory or malignant etiology. Endoscopy was recommended for further evaluation. Thyroid ultrasound showed small thyroid nodules but the mass posterior to the left thyroid lobe seen on CT was not well visualized. Please note that the patient was a somewhat poor historian so obtaining subjective information was somewhat difficult. Patient reports solid food dysphagia ( solid foods get stuck) but denies dysphagia to liquids or pills. She feels something stuck in her throat even when not eating. Nurse reports patient was complaining of discomfort yesterday which improv
[2023-11-18] MEDS: COLLAGENASE OINT 30 GM TUBE 1 APPLIC TOPICAL (08:50)
[2023-11-18] MEDS: MUPIROCIN 2% OINT 22 GM TUBE 2 APPLIC TOPICAL (08:50)
[2023-11-18] MEDS: MICONAZOLE NITRATE 2% CREAM 30 GM TUBE 1 APPLIC TOPICAL ×2 (08:51→21:15)
[2023-11-18] MEDS: DORZOLAMIDE HCL 2% OPHTH DROPS 2 DROP EACH EYE ×3 (08:53→21:14)
[2023-11-18] MEDS: CLOBETASOL PROPIONATE 0.05% CREAM 15 GM 1 APPLIC TOPICAL ×2 (08:54→21:17)
--- NOTE | 2023-11-18 11:02 | PC.NURSE ---
To GI Lab via [facility].
--- NOTE | 2023-11-18 11:23 | WPDANESEPPF ---
Anes - Initial Pre Proc Eval Procedure: Operation Date: 11/18/23 15:00 Proposed Procedures p Esophagogastroduodenoscopy - Torito Moran MD Date/Time: 11/18/23 11:23 Surgeon: Irene Shah MD Pre Op Diagnosis: Stridor, UTI Patient Data Age: 82 Gender: F Height: 1.57 m Weight: 78.2 kg Last Vital Signs Temp 98.2 F 11/18/23 10:55 Pulse 69 11/18/23 10:55 Resp 20 11/18/23 10:55 BP 150/52 H 11/18/23 10:55 Pulse Ox 97 11/18/23 10:55 O2 Del Method Room Air 11/18/23 08:51 O2 Flow Rate 2 11/17/23 07:43 FiO2 21 11/16/23 09:05 Allergies Allergy/AdvReac Type Severity Reaction Status Date / Time black pepper Allergy Unknown Verified 11/18/23 11:20 diltiazem Allergy Unknown Verified 11/18/23 11:20 donepezil Allergy Unknown Verified 11/18/23 11:20 fluticasone Allergy Unknown Verified 11/18/23 11:20 metformin Allergy Unknown Verified 11/18/23 11:20 Home Medications Medication Instructions Recorded Confirmed Type apixaban 5 mg tablet (Eliquis) 5 mg PO BID 03/11/22 11/18/23 History cranberry extract 425 mg capsule 425 mg PO DAILY 03/11/22 11/13/23 History dorzolamide 2 % eye drops 2 drp EACH EYE TID 03/11/22 11/13/23 History flecainide 50 mg tablet 50 mg PO BID 03/11/22 11/13/23 History levothyroxine 75 mcg tablet 75 mcg PO DAILY 03/11/22 11/13/23 History nitroglycerin 0.4 mg sublingual 0.4 mg sublingual PRN PRN Chest 03/11/22 11/13/23 History tablet Pain rosuvastatin 10 mg tablet 10 mg PO HS 03/11/22 11/13/23 History spironolactone 25 mg tablet 25 mg PO DAILY 03/11/22 11/13/23 History buspirone 5 mg tablet 5 mg PO TID 08/11/22 11/13/23 History arginine-vitamin C-vitamin E oral 1 g PO BID 10/28/22 11/13/23 History 4.5 gram-156 mg/9.2 gram powder pkt (Arginaid) escitalopram oxalate 10 mg tablet 10 mg PO QHS 10/28/22 11/13/23 History furosemide 40 mg tablet 40 mg PO DAILY #30 tabs 11/01/22 11/13/23 Rx potassium chloride 20 mEq 20 meq PO BIDWM #60 tabs 11/01/22 11/13/23 Rx tablet,extended release (K-Tab) acetaminophen 500 mg capsule 1,000 mg PO Q6H PRN pain 11/03/22 11/13/23 History bromfenac 0.09 % eye drops 1 drp RIGHT EYE HS 11/03/22 11/13/23 History melatonin 5 mg tablet 5 mg PO HS #30 tabs 11/06/22 11/13/23 Rx levothyroxine 75 mcg tablet 150 mcg PO .qsunday #7 tabs 12/19/22 11/13/23 Rx Antacid (calcium carbonate) 500 mg PO BID PRN Indigestion 05/11/23 11/13/23 History Saccharomyces boulardii 250 mg 250 mg PO BID 05/11/23 11/13/23 History capsule (Florastor) acetic acid 0.25 % irrigation 30 ml irrigation EVERY OTHER DAY 05/11/23 11/13/23 History solution clobetasol 1 dose topical BID 05/11/23 11/13/23 History collagenase clostridium histo. 250 1 applic topical DAILY 05/11/23 11/13/23 History unit/gram topical ointment (Santyl) hyoscyamine sulfate 0.125 mg tablet 0.125 mg PO BID PRN cramping 05/11/23 11/13/23 History insulin glargine 100 unit/mL (3 45 unit subcut BID 05/11/23 11/13/23 History mL) subcutaneous pen (Lantus Solostar U-100 Insulin) mupirocin 2 % topical DAILY 05/11/23 11/13/23 History nystatin 100,000 unit/gram topical 1 applic topical BID 05/11/23 11/13/23 History cream anastrozole 1 mg tablet 1 mg PO DAILY 11/13/23 11/13/23 History atropine 1 % eye drops 4 drp sublingual Q1H PRN Excessive 11/13/23 11/13/23 History Salivation budesonide 0.5 mg/2 mL suspension 0.5 mg inhalation DAILY 11/13/23 11/13/23 History for nebulization ciclopirox 0.77 % topical gel 1 applic topical HS 11/13/23 11/13/23 History ipratropium 0.5 mg-albuterol 3 mg 3 ml inhalation TID 11/13/23 11/13/23 History (2.5 mg base)/3 mL nebulization soln pantoprazole 40 mg tablet,delayed 40 mg PO DAILY 11/13/23 11/13/23 History release Laboratory Tests 11/17/23 11/17/23 11/17/23 11:37 16:46 21:29 WBC RBC Hgb Hct MCV MCH MCHC RDW Plt Count
[2023-11-18] MEDS: LACTATED RINGERS 1,000 ML 150 ML IV CONT (11:24)
--- NOTE | 2023-11-18 11:26 | SUR.PREOP ---
Pt's last dose of Eliquis 11/17/[address] Padilla aware states ok to proceed with EGD today.
[2023-11-18 11:31] LABS: Glucose Point of Care 147 mg/dl (65-105)
[2023-11-18 12:08] LABS: Glucose Point of Care 149 mg/dl (65-105)
[2023-11-18] MEDS: busPIRone HCL 5 MG TABLET PO ×2 (13:03→16:35)
[2023-11-18] MEDS: DOXYCYCLINE HYCLATE 100 MG TABLET PO ×2 (14:04→21:13)
--- NOTE | 2023-11-18 14:41 | PM.IMPN ---
Progress Note: A&P Assessment and Plan (1) Acute respiratory failure: Code(s): J96.00 - Acute respiratory failure, unspecified whether with hypoxia or hypercapnia Status: Acute (2) Dysphagia: Qualifiers: Dysphagia type: other dysphagia Qualified Code(s): R13.19 - Other dysphagia Code(s): R13.10 - Dysphagia, unspecified Status: Acute (3) Esophageal mass: Code(s): K22.89 - Other specified disease of esophagus Status: Acute (4) Diabetes mellitus with hyperglycemia: Qualifiers: Diabetes mellitus type: type 2 Diabetes mellitus terminal computer operator insulin use: with terminal computer operator use Qualified Code(s): E11.65 - Type 2 diabetes mellitus with hyperglycemia; Z79.4 - 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 of insulin Code(s): E11.65 - Type 2 diabetes mellitus with hyperglycemia Status: Acute (5) Paroxysmal atrial fibrillation: Code(s): I48.0 - Paroxysmal atrial fibrillation Status: Acute (6) CATY (obstructive sleep apnea): Code(s): G47.33 - Obstructive sleep apnea (adult) (pediatric) Status: Acute (7) GERD (gastroesophageal reflux disease): Code(s): K21.9 - Gastro-esophageal reflux disease without esophagitis Status: Acute Plan Patient presented with worsening shortness of breath since yesterday. History of CHF was coughing detention and noted some stridor. She received DuoNeb in route. Upon arrival patient still has some expiratory stridor recent epi was given with resolution of stridor. Upon ED evaluation her vitals indicated hypertension mildly tachycardic afebrile was placed on oxygen via nasal cannula requiring 3 L oxygen. Laboratory evaluation showed leukocytosis of 28,000 hemoglobin of 15.7 platelets 322 Chem panel unremarkable. Lactic acid was elevated 3.6. LFTs normal influenza RSV COVID swab negative group a strep was negative. UA positive for UTI. Chest x-ray showed mild congestive changes. Soft tissue neck x-ray showed slightly prominent prevertebral soft tissues in the lower cervical area otherwise no significant abnormality. Soft tissue neck CT showed inflammatory edema without evident abscess in the retropharyngeal/prevertebral soft tissue in the mid to lower neck and cephalad from the poorly defined proximally 1.7 x 1.7 cm soft tissue density posterior to the inferior left thyroid lobe exerting mass effect upon left posterior margin of the esophagus with some associated asymmetric mild wall thickening of the left side of the esophagus. This could be either infectious/inflammatory or malignant etiology. Consider endoscopy for further evaluation. AP narrowing of the trachea and mainstem bronchi in thorax likely related to combination of tracheal bronchomalacia and expiratory phase of imaging. Likely benign multinodular goiter was noted probably mucus in bilateral sphenoid sinuses consistent with acute sinusitis. Case was discussed with cardiothoracic surgeon at [facility] and recommended ENT consultation. ENT has been consulted here . No laryngoscopy kit available here for evaluation by ENT here. However clinically improved Received ceftriaxone in the ER. Switched to Unasyn. WBC count continues to improve with it. Was switched to oral Augmentin. Add doxycycline for MRSA coverage as WBC count has plateaued at 15 K today Dysphagia noted for a while. Speech therapy consultation and did well. Started on a diet. GI consultation underwent EGD which showed gastric polyps otherwise unremarkable. No mass / Lesion /ring was noted. Echo finding of moderate to severe aortic stenosis follow-up as an outpatient basis with Cardiology. Type 2 diabetes insulin regimen adjust as needed Hypothyroidism Congestive heart failure chronic Status post colostomy Suprapubic catheter in-situ gets changed every 2 weeks UTI/sinusitis antibiotics as ordered Multinodular goiter thyroid ultrasound reviewed repeat ultrasound in 1 year Esophageal wall thickening
[2023-11-18 16:47] LABS: Glucose Point of Care 186 mg/dl (65-105)
[2023-11-18] MEDS: INSULIN ASPART (*BKC) 100 UNITS/ML 12 UNITS SUB-Q (17:04)
[2023-11-18] MEDS: AMOXICILLIN/CLAVULANATE K 875-125 MG TAB 1 TABLET PO (21:13)
[2023-11-18] MEDS: ESCITALOPRAM OXALATE 10 MG TABLET PO (21:13)
[2023-11-18] MEDS: APIXABAN 5 MG TABLET PO (21:13)
[2023-11-18] MEDS: FLECAINIDE ACETATE 50 MG TABLET PO (21:13)
[2023-11-18] MEDS: INSULIN GLARGINE (*BKC) 100 UNITS/ML 40 UNITS SUB-Q (21:24)
[2023-11-18 21:51] LABS: Glucose Point of Care 109 mg/dl (65-105)
[2023-11-19] VITALS (15 sets, daily range): BP systolic 130–155; BP diastolic 36–63; PULSE 64–85; RESP 14–18; TEMP 36.5–37.1; O2SAT 95–98
[2023-11-19 04:54] LABS: Basophils Percent Auto 0.3 % (0.2-1.2); Eosinophils Absolute Auto 0.7 K/mm3 (0-0.3); Eosinophils Percent Auto 4.8 % (0-4.4); Hematocrit 41.5 % (37.0-47.0); Hemoglobin 13.6 g/dL (12.0-15.0); Immature Granulocyte Absolute 0.38 K/mm3 (0.00-0.031); Immature Granulocyte Percent A 2.6 % (0-0.5); Lymphocytes Percent Auto 10.9 % (18.3-44.2); Mean Corpuscular HGB Conc 32.8 g/dl (32-36); Mean Corpuscular Hemoglobin 26.7 pg (26-34); Mean Corpuscular Volume 81.4 fl (80-100); Mean Platelet Volume 10.4 fl (7.4-10.4); Monocytes Absolute Auto 2.5 K/mm3 (0.1-0.6); Monocytes Percent Auto 16.7 % (2.6-8.5); Neutrophils Absolute Auto 9.5 K/mm3 (1.3-6.7); Neutrophils Percent Auto 64.7 % (45.5-73.1); Platelet Count Result 252 k/mm3 (150-375); Red Cell Distribution Width 15.9 % (11.5-14.5); White Blood Count 14.7 K/mm3 (4.5-10.0)
[2023-11-19 05:08] LABS: Alanine Aminotransferase 18 U/L (6-35); Alkaline Phosphatase 69 U/L (38-126); Anion Gap 3 mmol/L (4-12); Aspartate Amino Transferase 18 U/L (14-36); Bilirubin,Total 0.5 mg/dL (0.2-1.3); Blood Urea Nitrogen 12 mg/dL (7-17); Calcium 9.4 mg/dL (8.4-10.2); Carbon Dioxide 26 mmol/L (22-30); Chloride 108 mmol/L (98-107); Estimated CRCL calculation 57 ml/min; Estimated Glomerular Filt Rate > 60; Glucose 89 mg/dL (65-110); Magnesium 2.3 mg/dL (1.6-2.3); Potassium 3.6 mmol/L (3.4-5.0); Sodium 137 mmol/L (137-145)
[2023-11-19 07:50] LABS: Glucose Point of Care 90 mg/dl (65-105)
[2023-11-19] MEDS: ANASTROZOLE (*CHEMO) 1 MG TABLET PO (08:00)
[2023-11-19] MEDS: AMOXICILLIN/CLAVULANATE K 875-125 MG TAB 1 TABLET PO ×2 (08:01→20:35)
[2023-11-19] MEDS: PANTOPRAZOLE 40 MG TABLET PO (08:01)
[2023-11-19] MEDS: APIXABAN 5 MG TABLET PO ×2 (08:01→20:35)
[2023-11-19] MEDS: DOXYCYCLINE HYCLATE 100 MG TABLET PO ×2 (08:01→20:35)
[2023-11-19] MEDS: FLECAINIDE ACETATE 50 MG TABLET PO ×2 (08:01→20:35)
[2023-11-19] MEDS: FUROSEMIDE 40 MG TABLET PO (08:02)
[2023-11-19] MEDS: busPIRone HCL 5 MG TABLET PO ×3 (08:03→16:16)
[2023-11-19] MEDS: MUPIROCIN 2% OINT 22 GM TUBE 2 APPLIC TOPICAL (08:04)
[2023-11-19] MEDS: DORZOLAMIDE HCL 2% OPHTH DROPS 2 DROP EACH EYE ×3 (08:04→20:36)
[2023-11-19] MEDS: MICONAZOLE NITRATE 2% CREAM 30 GM TUBE 1 APPLIC TOPICAL ×2 (08:04→20:37)
[2023-11-19] MEDS: COLLAGENASE OINT 30 GM TUBE 1 APPLIC TOPICAL (08:05)
[2023-11-19] MEDS: CLOBETASOL PROPIONATE 0.05% CREAM 15 GM 1 APPLIC TOPICAL ×2 (08:06→20:37)
[2023-11-19] MEDS: IPRATROPIUM 0.5 MG/ALBUTEROL SULFATE 2.5 MG AMPUL.NEB 3 ML INHALATION ×3 (08:39→20:02)
[2023-11-19] MEDS: BUDESONIDE RESPULE NEB 0.5 MG/2 ML AMP INHALATION (08:40)
[2023-11-19 11:47] LABS: Glucose Point of Care 205 mg/dl (65-105)
[2023-11-19] MEDS: INSULIN ASPART (*BKC) 100 UNITS/ML 12 UNITS SUB-Q ×2 (11:53→16:54)
[2023-11-19] MEDS: INSULIN ASPART (*BKC) 100 UNITS/ML SUB-Q ×2 (11:54→16:53)
--- NOTE | 2023-11-19 11:59 | PCNFU ---
Nutrition Follow-Up Complete: Increased protein energy needs related to wound healing as evidenced by stage 3 pressure injury to coccyx Goal: Adequate PO intake at least 75% meals and supplements to support wound healing Patient is progressing towards goal. We will continue current goal. Pt current nutrition is DBCC. Last recorded weight is 78.2 kg, up from 74.8 kg on admit. Bowel Motility: +BM reported 11/17 Labs Reviewed: Alb 3.0,Cr 0.6 Meds Noted:Katia Bach Skin: Stage III pressure ulcer-coccyx. Additional Notes: Patient remains on a DBCC diet. Intake has been good 100% of meals. Diet supplements have been ordered for Gerber BID and Glucerna shake BID. Agree with diet orders. Monitoring intakes, weights, labs, supplement tolerance, wound healing, plan of care Follow up in 5 days
--- NOTE | 2023-11-19 12:50 | PM.IMPN ---
Progress Note: A&P Assessment and Plan (1) Acute respiratory failure: Code(s): J96.00 - Acute respiratory failure, unspecified whether with hypoxia or hypercapnia Status: Acute Assessment and Plan: resolved after EGD (2) Dysphagia: Qualifiers: Dysphagia type: other dysphagia Qualified Code(s): R13.19 - Other dysphagia Code(s): R13.10 - Dysphagia, unspecified Status: Acute Assessment and Plan: resolved after EGD (3) Esophageal mass: Code(s): K22.89 - Other specified disease of esophagus Status: Acute Assessment and Plan: Chest x-ray showed mild congestive changes. Soft tissue neck x-ray showed slightly prominent prevertebral soft tissues in the lower cervical area otherwise no significant abnormality. Soft tissue neck CT showed inflammatory edema without evident abscess in the retropharyngeal/prevertebral soft tissue in the mid to lower neck and cephalad from the poorly defined proximally 1.7 x 1.7 cm soft tissue density posterior to the inferior left thyroid lobe exerting mass effect upon left posterior margin of the esophagus with some associated asymmetric mild wall thickening of the left side of the esophagus. This could be either infectious/inflammatory or malignant etiology. Consider endoscopy for further evaluation. AP narrowing of the trachea and mainstem bronchi in thorax likely related to combination of tracheal bronchomalacia and expiratory phase of imaging. Likely benign multinodular goiter was noted probably mucus in bilateral sphenoid sinuses consistent with acute sinusitis. Case was discussed with cardiothoracic surgeon at [facility] and recommended ENT consultation. ENT has been consulted here . No laryngoscopy kit available here for evaluation by ENT here. However clinically improved Received ceftriaxone in the ER. Switched to Unasyn. WBC count continues to improve with it. Was switched to oral Augmentin. Add doxycycline for MRSA coverage as WBC count has plateaued at 15 K today Dysphagia noted for a while. Speech therapy consultation and did well. Started on a diet. GI consultation underwent EGD which showed gastric polyps otherwise unremarkable. No mass / Lesion /ring was noted. Pt seen by GI and ENT in the hospital Multinodular goiter thyroid ultrasound reviewed repeat ultrasound in 1 year Esophageal wall thickening Underwent EGD showing gastric polyp await biopsy report (4) Diabetes mellitus with hyperglycemia: Qualifiers: Diabetes mellitus type: type 2 Diabetes mellitus residential insulin use: with intermediate card tender use Qualified Code(s): E11.65 - Type 2 diabetes mellitus with hyperglycemia; Z79.4 - intermediate card tender (current) use of insulin Code(s): E11.65 - Type 2 diabetes mellitus with hyperglycemia Status: Acute Assessment and Plan: Controlled with lantus and SSI sugars are stable (5) Paroxysmal atrial fibrillation: Code(s): I48.0 - Paroxysmal atrial fibrillation Status: Acute Assessment and Plan: chronic and stable (6) CATY (obstructive sleep apnea): Code(s): G47.33 - Obstructive sleep apnea (adult) (pediatric) Status: Acute Assessment and Plan: stable (7) GERD (gastroesophageal reflux disease): Code(s): K21.9 - Gastro-esophageal reflux disease without esophagitis Status: Acute Assessment and Plan: PPI on board Plan Other problems #Leukocytosis watch WCC pt started on oral Augmentin antonio secondary to sinusitis #UTI ruled out UC is negative Wcc elevated likely due to sinusitis #Echo finding of moderate to severe aortic stenosis follow-up as an outpatient basis with Cardiology.H/o Congestive heart failure chronic #Status post colostomy #Suprapubic catheter in-situ gets changed every 2 weeks will get changed out in hospital prior to DC #chronically deconditioned state- Pt is usually Phlylis lift in facility Plan DC dani
--- NOTE | 2023-11-19 13:21 | WPDURCON ---
Assessment and Plan Assessment and plan (1) Blocked suprapubic catheter: Qualifiers: Encounter type: initial encounter Qualified Code(s): T83.090A - Other mechanical complication of cystostomy catheter, initial encounter Code(s): T83.090A - Other mechanical complication of cystostomy catheter, initial encounter Status: Acute Assessment and Plan: SP tube leakage likely secondary to sediment. SP tube was removed and replaced today using 16 Divehi Schmitt catheter. Patient tolerated well. SP tube draining well following exchange. Initial output of about 600 cc clear yellow urine. Continue SP tube with plans for next exchange in 2 weeks as an outpatient as scheduled (appointment is 12/03/2023). Plan Urology will sign off at this time. Please call with any questions or concerns Urology Consult Note HPI Date Seen: 11/19/23 Requesting Physician: Irene Shah MD Primary Care Provider: UNKNOWN,DOCTOR Consult Narrative Narrative: Perla Leon is a 82 year old female with history of neurogenic bladder maintained with suprapubic catheter who has SP tube changes every 2 weeks as an outpatient. Her last SP tube exchange was on 11/03/2023. She was scheduled for appointment on 11/17/2023, however missed this appointment due to her admission. She is being seen in consultation as her SP tube was noted to be leaking. At the time of my evaluation, she is resting comfortably. Her SP tube is draining clear yellow urine and she also has a pure wick catheter in place collecting the urinary leakage. At the bedside, using sterile technique, I removed her SP tube without difficulty. I then inserted a 16 Divehi Schmitt catheter and inflated the balloon with 10 cc sterile water. I applied a sterile split sponge gauze dressing over the catheter. She tolerated this very well. She had output of about 600 cc clear yellow urine with some sediment. Suspect prior SP tube became clogged due to sediment resulting in leakage. Review of Systems Review of Systems: All systems reviewed & are unremarkable except as noted in HPI and below PMFSH Past Medical History Medical History Atherosclerotic heart disease Atrial fibrillation Breast cancer Chronic anticoagulation Chronic idiopathic constipation Congestive heart failure Familial spastic paraplegia Gastroesophageal reflux disease Glaucoma Hereditary spastic paraplegia History of pulmonary embolism Hyperparathyroidism Hypertension Hypothyroidism Multiple sclerosis Suprapubic catheter in place. Neurogenic bladder Obstructive sleep apnea Noncompliant with CPAP. 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 History of hysterectomy History of suprapubic catheter Family History Family History Father Spastic paralysis Mother Breast cancer Social History Social History Social History: Surrogate medical decision maker: Ange Reyes or Nancy Alvaro, daughters. Code status: Full code. Smoking status: Never smoker Second hand tobacco smoke exposure: No Alcohol intake: never Substance use: never Substance use type: does not use Do You Feel Safe in your Home?: Yes Lack of Transportation: No Lack of Food: Never True Current Housing: I Have Housing Concerned About Future Housing: No Difficulty Paying Gas/Electric Bills: No Difficulty Paying for Meds: No Currently Unemployed: No Education: Decline to Answer Difficulty w/ Childcare or Family Care: No Living arrangements: alf Riley
--- NOTE | 2023-11-19 15:30 | WPDANESPN ---
Anes - Prog Note Post-Op Date/Time: 11/19/23 15:30 Cardiovascular status: normal Respiratory status: normal Airway patency: baseline Mental status: baseline Post-Op hydration status: normal Vital Signs: Last Vital Signs Temp 36.7 C 11/19/23 12:00 Pulse 85 11/19/23 14:54 Resp 16 11/19/23 14:54 BP 155/58 H 11/19/23 12:00 Pulse Ox 98 11/19/23 12:00 O2 Del Method Room Air 11/19/23 08:06 O2 Flow Rate 2 11/17/23 07:43 FiO2 21 11/16/23 09:05 Pain Score (VAS): 0 I/O: Intake & Output 11/18/23 11/19/23 11/19/23 23:59 07:59 15:59 Intake Total 480 350 600 Output Total 400 0 1400 Balance 80 350 -800 Laboratory Tests 11/19/23 04:29 11/19/23 04:29 11/18/23 11/18/23 11/19/23 16:41 20:58 04:29 WBC 14.7 H RBC 5.10 Hgb 13.6 Hct 41.5 MCV 81.4 MCH 26.7 MCHC 32.8 RDW 15.9 H Plt Count 252 MPV 10.4 Immature Gran % (Auto) 2.6 H Neut % (Auto) 64.7 Lymph % (Auto) 10.9 L [place] % (Auto) 16.7 H Eos % (Auto) 4.8 H Baso % (Auto) 0.3 Lymph # (Auto) 1.60 [place] # (Auto) 2.5 H Eos # (Auto) 0.7 H Baso # (Auto) 0.0 Abs Immat Gran (auto) 0.38 H Absolute Neuts (auto) 9.5 H Absolute Nucleated RBC 0.000 Nucleated RBC % 0.0 Sodium 137 Potassium 3.6 Chloride 108 H Carbon Dioxide 26 Anion Gap 3 L BUN 12 Creatinine 0.60 L Estim Creat Clear Calc 57 Estimated GFR > 60 Glucose 89 POC Capillary Glucose 186 H 109 H Calcium 9.4 Magnesium 2.3 Total Bilirubin 0.5 AST 18 ALT 18 Alkaline Phosphatase 69 Total Protein 6.0 L Albumin 3.0 L 11/19/23 11/19/23 07:45 11:43 WBC RBC Hgb Hct MCV MCH MCHC RDW Plt Count MPV Immature Gran % (Auto) Neut % (Auto) Lymph % (Auto) [place] % (Auto) Eos % (Auto) Baso % (Auto) Lymph # (Auto) [place] # (Auto) Eos # (Auto) Baso # (Auto) Abs Immat Gran (auto) Absolute Neuts (auto) Absolute Nucleated RBC Nucleated RBC % Sodium Potassium Chloride Carbon Dioxide Anion Gap BUN Creatinine Estim Creat Clear Calc Estimated GFR Glucose POC Capillary Glucose 90 205 H Calcium Magnesium Total Bilirubin AST ALT Alkaline Phosphatase Total Protein Albumin Microbiology 11/13/23 08:29 Blood Blood Culture - Final 11/13/23 08:40 Blood Blood Culture - Final Post-procedural complaints: none Patient Feedback: Patient satisfied with anesthetic care.
[2023-11-19 16:45] LABS: Glucose Point of Care 232 mg/dl (65-105)
[2023-11-19] MEDS: ACETAMINOPHEN 500 MG TABLET 1000 MG PO (20:35)
[2023-11-19] MEDS: ESCITALOPRAM OXALATE 10 MG TABLET PO (20:36)
[2023-11-19] MEDS: INSULIN GLARGINE (*BKC) 100 UNITS/ML 40 UNITS SUB-Q (21:17)
[2023-11-19 21:44] LABS: Glucose Point of Care 165 mg/dl (65-105)
[2023-11-20] VITALS (15 sets, daily range): BP systolic 119–136; BP diastolic 40–48; PULSE 64–77; RESP 14–20; TEMP 36.2–36.9; O2SAT 93–98
[2023-11-20] MEDS: IPRATROPIUM 0.5 MG/ALBUTEROL SULFATE 2.5 MG AMPUL.NEB 3 ML INHALATION ×3 (07:16→19:47)
[2023-11-20] MEDS: BUDESONIDE RESPULE NEB 0.5 MG/2 ML AMP INHALATION (07:17)
[2023-11-20 07:21] LABS: Hematocrit 44.8 % (37.0-47.0); Hemoglobin 14.2 g/dL (12.0-15.0); Mean Corpuscular HGB Conc 31.7 g/dl (32-36); Mean Corpuscular Hemoglobin 26.6 pg (26-34); Mean Corpuscular Volume 83.9 fl (80-100); Mean Platelet Volume 10.3 fl (7.4-10.4); Platelet Count Result 263 k/mm3 (150-375); Red Blood Count 5.34 M/mm3 (4.2-5.4); Red Cell Distribution Width 16.3 % (11.5-14.5); White Blood Count 13.9 K/mm3 (4.5-10.0)
[2023-11-20 07:39] LABS: Anion Gap 6 mmol/L (4-12); Blood Urea Nitrogen 13 mg/dL (7-17); Calcium 9.5 mg/dL (8.4-10.2); Carbon Dioxide 24 mmol/L (22-30); Chloride 108 mmol/L (98-107); Estimated CRCL calculation 58 ml/min; Estimated Glomerular Filt Rate > 60; Glucose 80 mg/dL (65-110); Potassium 3.7 mmol/L (3.4-5.0); Sodium 138 mmol/L (137-145)
[2023-11-20 08:21] LABS: Glucose Point of Care 111 mg/dl (65-105)
[2023-11-20] MEDS: AMOXICILLIN/CLAVULANATE K 875-125 MG TAB 1 TABLET PO ×2 (08:57→20:57)
[2023-11-20] MEDS: FUROSEMIDE 40 MG TABLET PO (08:57)
[2023-11-20] MEDS: PANTOPRAZOLE 40 MG TABLET PO (08:57)
[2023-11-20] MEDS: DOXYCYCLINE HYCLATE 100 MG TABLET PO ×2 (08:58→20:57)
[2023-11-20] MEDS: APIXABAN 5 MG TABLET PO ×2 (08:58→20:57)
[2023-11-20] MEDS: ANASTROZOLE (*CHEMO) 1 MG TABLET PO (08:58)
[2023-11-20] MEDS: FLECAINIDE ACETATE 50 MG TABLET PO ×2 (08:58→20:57)
[2023-11-20] MEDS: busPIRone HCL 5 MG TABLET PO ×3 (08:58→17:26)
[2023-11-20] MEDS: DORZOLAMIDE HCL 2% OPHTH DROPS 2 DROP EACH EYE ×3 (08:58→21:00)
[2023-11-20] MEDS: MICONAZOLE NITRATE 2% CREAM 30 GM TUBE 1 APPLIC TOPICAL ×2 (08:59→21:05)
[2023-11-20] MEDS: CLOBETASOL PROPIONATE 0.05% CREAM 15 GM 1 APPLIC TOPICAL ×2 (08:59→21:05)
[2023-11-20] MEDS: COLLAGENASE OINT 30 GM TUBE 1 APPLIC TOPICAL (08:59)
[2023-11-20] MEDS: MUPIROCIN 2% OINT 22 GM TUBE 2 APPLIC TOPICAL (09:00)
[2023-11-20] MEDS: INSULIN ASPART (*BKC) 100 UNITS/ML 12 UNITS SUB-Q ×2 (09:01→17:27)
[2023-11-20 12:28] LABS: Glucose Point of Care 93 mg/dl (65-105)
--- NOTE | 2023-11-20 13:00 | PM.IMPN ---
Progress Note: A&P Assessment and Plan (1) Acute respiratory failure: Code(s): J96.00 - Acute respiratory failure, unspecified whether with hypoxia or hypercapnia Status: Acute Assessment and Plan: Patient presented with worsening shortness of breath. She received DuoNebs and round. Upon arrival, she had expiratory stridor with improvement after racemic epi. She was placed on supplemental oxygen. Noted to have leukocytosis. Influenza, RSV and COVID PCR were negative. Group a strep was negative. Chest x-ray showed mild congestive changes. Neck CT showed inflammatory edema but no abscess in the retropharyngeal/prevertebral soft tissue in the mid to lower neck with approximately 1.7 cm soft tissue density posterior to the left thyroid very mass effect on the left posterior margin the esophagus. AP narrowing of the trachea and mainstem bronchi in thorax likely related to combination of tracheal bronchomalacia and expiratory phase of imaging. Patient was started on IV antibiotics. Her condition has improved. She has been weaned to room air. Resolved. (2) Esophageal mass: Code(s): K22.89 - Other specified disease of esophagus Status: Acute Assessment and Plan: Soft tissue neck CT showed inflammatory edema without evident abscess in the retropharyngeal/prevertebral soft tissue in the mid to lower neck and cephalad from the poorly defined proximally 1.7 x 1.7 cm soft tissue density posterior to the inferior left thyroid lobe exerting mass effect upon left posterior margin of the esophagus with some associated asymmetric mild wall thickening of the left side of the esophagus. This could be either infectious/inflammatory or malignant etiology. ENT was consulted and recommended either US or CT guided FNA (due to location may require CT guidance but will defer to radiology) for definitive diagnosis. This could be done as an outpatient. Clinically no concern for retropharyngeal abscess, she has no signs of respiratory difficulty at this time. WBC was up to 30K and was trending down but has plateaued at 15 K so doxycycline added 7/2. Since then, WBC slowly dropping Speech therapy consultation and did well. Started on a diet. GI consultation underwent EGD which showed gastric polyps otherwise unremarkable. Multinodular goiter thyroid ultrasound reviewed repeat ultrasound in 1 year Neck mass posssibly infectious. Complete a course aof treatment and plan for repeat CT in 4 weeks. Follow up with ENT. (3) Dysphagia: Qualifiers: Dysphagia type: other dysphagia Qualified Code(s): R13.19 - Other dysphagia Code(s): R13.10 - Dysphagia, unspecified Status: Acute Assessment and Plan: As above. 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 The patient's blood glucose was reviewed on 11/19 Glucose remains mostly well controlled. Continue AccuCheks covering with sliding scale. Hypoglycemia protocol available as needed. Continue to follow (5) Paroxysmal atrial fibrillation: Code(s): I48.0 - Paroxysmal atrial fibrillation Status: Acute Assessment and Plan: chronic and stable (6) CATY (obstructive sleep apnea): Code(s): G47.33 - Obstructive sleep apnea (adult) (pediatric) Status: Acute Assessment and Plan: Cannot tolerate noninvasive treatment (7) GERD (gastroesophageal reflux disease): Code(s): K21.9 - Gastro-esophageal reflux disease without esophagitis Status: Acute Assessment and Plan: PPI on board (8) Aortic stenosis: Code(s): I35.0 - Nonrheumat
[2023-11-20 16:59] LABS: Glucose Point of Care 154 mg/dl (65-105)
[2023-11-20] MEDS: ACETAMINOPHEN 500 MG TABLET 1000 MG PO (20:56)
[2023-11-20] MEDS: ESCITALOPRAM OXALATE 10 MG TABLET PO (20:57)
[2023-11-20] MEDS: INSULIN GLARGINE (*BKC) 100 UNITS/ML 40 UNITS SUB-Q (21:02)
[2023-11-20 21:17] LABS: Glucose Point of Care 135 mg/dl (65-105)
[2023-11-21] VITALS (7 sets, daily range): BP systolic 121–139; BP diastolic 39–49; PULSE 62–74; RESP 16–18; TEMP 36.6–36.8; O2SAT 93–97
[2023-11-21] MEDS: ACETAMINOPHEN 500 MG TABLET 1000 MG PO ×2 (04:34→11:16)
[2023-11-21 06:21] LABS: Basophils Absolute Auto 0.1 K/mm3 (0.0-0.1); Basophils Percent Auto 0.4 % (0.2-1.2); Eosinophils Absolute Auto 0.5 K/mm3 (0-0.3); Eosinophils Percent Auto 3.7 % (0-4.4); Hematocrit 41.7 % (37.0-47.0); Hemoglobin 13.4 g/dL (12.0-15.0); Immature Granulocyte Absolute 0.29 K/mm3 (0.00-0.031); Immature Granulocyte Percent A 2.1 % (0-0.5); Lymphocytes Absolute Auto 1.79 K/mm3 (0.9-3.2); Lymphocytes Percent Auto 12.8 % (18.3-44.2); Mean Corpuscular HGB Conc 32.1 g/dl (32-36); Mean Corpuscular Hemoglobin 26.6 pg (26-34); Mean Corpuscular Volume 82.9 fl (80-100); Mean Platelet Volume 10.6 fl (7.4-10.4); Neutrophils Absolute Auto 8.4 K/mm3 (1.3-6.7); Platelet Count Result 295 k/mm3 (150-375); Red Blood Count 5.03 M/mm3 (4.2-5.4); Red Cell Distribution Width 16.3 % (11.5-14.5)
[2023-11-21 06:36] LABS: CRP 0.7 mg/dL (<1.0)
[2023-11-21] MEDS: BUDESONIDE RESPULE NEB 0.5 MG/2 ML AMP INHALATION (07:39)
[2023-11-21] MEDS: IPRATROPIUM 0.5 MG/ALBUTEROL SULFATE 2.5 MG AMPUL.NEB 3 ML INHALATION (07:39)
[2023-11-21 08:00] LABS: Glucose Point of Care 90 mg/dl (65-105)
[2023-11-21] MEDS: INSULIN ASPART (*BKC) 100 UNITS/ML 12 UNITS SUB-Q ×2 (08:26→12:47)
[2023-11-21] MEDS: PANTOPRAZOLE 40 MG TABLET PO (08:27)
[2023-11-21] MEDS: FUROSEMIDE 40 MG TABLET PO (08:27)
[2023-11-21] MEDS: ANASTROZOLE (*CHEMO) 1 MG TABLET PO (08:27)
[2023-11-21] MEDS: APIXABAN 5 MG TABLET PO (08:27)
[2023-11-21] MEDS: busPIRone HCL 5 MG TABLET PO ×2 (08:27→12:47)
[2023-11-21] MEDS: AMOXICILLIN/CLAVULANATE K 875-125 MG TAB 1 TABLET PO (08:27)
[2023-11-21] MEDS: DOXYCYCLINE HYCLATE 100 MG TABLET PO (08:27)
[2023-11-21] MEDS: FLECAINIDE ACETATE 50 MG TABLET PO (08:28)
[2023-11-21] MEDS: DORZOLAMIDE HCL 2% OPHTH DROPS 2 DROP EACH EYE ×2 (08:33→12:47)
--- NOTE | 2023-11-21 11:31 | PM.DS ---
DS: Admitting Diagnosis Discharge Date 11/21/23 Admitting Diagnosis Shortness of breath DS: Discharge Diagnosis Discharge Diagnosis (1) Acute respiratory failure: Code(s): J96.00 - Acute respiratory failure, unspecified whether with hypoxia or hypercapnia Status: Acute (2) Esophageal mass: Code(s): K22.89 - Other specified disease of esophagus Status: Acute (3) Dysphagia: Qualifiers: Dysphagia type: other dysphagia Qualified Code(s): R13.19 - Other dysphagia Code(s): R13.10 - Dysphagia, unspecified Status: Acute (4) Diabetes mellitus with hyperglycemia: Qualifiers: Diabetes mellitus type: type 2 Diabetes mellitus it application administrator insulin use: with it application administrator use Qualified Code(s): E11.65 - Type 2 diabetes mellitus with hyperglycemia; Z79.4 - escort blind (current) use of insulin Code(s): E11.65 - Type 2 diabetes mellitus with hyperglycemia Status: Acute (5) Paroxysmal atrial fibrillation: Code(s): I48.0 - Paroxysmal atrial fibrillation Status: Acute (6) CATY (obstructive sleep apnea): Code(s): G47.33 - Obstructive sleep apnea (adult) (pediatric) Status: Acute (7) GERD (gastroesophageal reflux disease): Code(s): K21.9 - Gastro-esophageal reflux disease without esophagitis Status: Acute (8) Aortic stenosis: Code(s): I35.0 - Nonrheumatic aortic (valve) stenosis Status: Acute (9) Multiple sclerosis: Code(s): G35 - Multiple sclerosis Status: Acute (10) Neck mass: Code(s): R22.1 - Localized swelling, mass and lump, neck Status: Acute DS: Summary Hospital Course Reason for hospitalization: 82yo female with AFib, MS with neurogenic bladder requiring SP catheter, DM and CATY (noncompliant) here for shortness of breath. Please see H&P for details Hospital Course: Patient presented with worsening shortness of breath. She received DuoNebs. Upon arrival, she had expiratory stridor with improvement after racemic epi and steroids. She was placed on supplemental oxygen. Noted to have leukocytosis. Influenza, RSV and COVID PCR were negative. Group A strep was negative. Chest x-ray showed mild congestive changes. Neck CT showed inflammatory edema but no abscess in the retropharyngeal/prevertebral soft tissue in the mid to lower neck with approximately 1.7 cm soft tissue density posterior to the left thyroid exerting mass effect on the left posterior margin of the esophagus. AP narrowing of the trachea and mainstem bronchi in thorax likely related to combination of tracheal bronchomalacia and expiratory phase of imaging. Patient was started on IV antibiotics. Her condition improved. She was able to be weaned to room air. Soft tissue neck CT showed inflammatory edema that could be either infectious/inflammatory or malignant etiology. With the elevated WBC, favor infectious etiology. ENT was consulted and recommended either US or CT guided FNA (due to location may require CT guidance but will defer to radiology) for definitive diagnosis. This could be done as an outpatient. Clinically no concern for retropharyngeal abscess; she has no signs of respiratory difficulty at this time. WBC was up to 30K and was trending down but has plateaued at 15K so doxycycline added 7/2. Since then, WBC slowly dropping but stable at 14K with a chronic monocytosis. On chart review, her WBC has almost always been elevated. Will plan for her to follow up with Heme/Onc for further evaluation of the monocytosis. Speech therapy was consulted and patient did well. She was started on a diet. GI consultation and patient underwent EGD which showed gastric polyps that appeared benign otherwise unremarkable. Thyroid US showing multinodular goiter and recommended repeat ultrasound in 1 year. Echo showing moderate to severe aortic stenosis and will need to be followed. She has a suprapubic catheter in-situ that gets changed every 2 wee
[2023-11-21 12:06] LABS: Glucose Point of Care 173 mg/dl (65-105)
[2023-11-21] MEDS: MUPIROCIN 2% OINT 22 GM TUBE 2 APPLIC TOPICAL (13:00)
[2023-11-21] MEDS: CLOBETASOL PROPIONATE 0.05% CREAM 15 GM 1 APPLIC TOPICAL (13:00)
[2023-11-21] MEDS: COLLAGENASE OINT 30 GM TUBE 1 APPLIC TOPICAL (13:00)
[2023-11-21 13:42] LABS: SARS-CoV-2 RNA PCR Negative (Negative)
== END 2023-11-21 15:30 | DRG 391 ==
LOC: ANHED 07:48 → ANHIMU 17:55 → ANH2MED 11-15 19:12
PROVIDERS: Emergency Medicine; Family Medicine; Internal Medicine; Internal Medicine Gastroenterology; Admitting Provider Hospitalist; Emergency Provider Emergency Medicine; Visit Provider Internal Medicine
PROC: 0DJ08ZZ Inspection of Upper Intestinal Tract, Via Natural or Artificial Opening Endoscopic (ICD-10-PCS; CPT 43235; principal; 2023-11-18 15:00)
DX: K22.89 Other specified disease of esophagus (principal); J96.00 Acute respiratory failure, unspecified whether with hypoxia or hypercapnia; T83.090A Other mechanical complication of cystostomy catheter, initial encounter; R13.10 Dysphagia, unspecified; J98.09 Other diseases of bronchus, not elsewhere classified; J32.9 Chronic sinusitis, unspecified; K31.7 Polyp of stomach and duodenum; N31.9 Neuromuscular dysfunction of bladder, unspecified; D72.829 Elevated white blood cell count, unspecified; E11.65 Type 2 diabetes mellitus with hyperglycemia; E04.2 Nontoxic multinodular goiter; G35 Multiple sclerosis; G47.33 Obstructive sleep apnea (adult) (pediatric); E03.9 Hypothyroidism, unspecified; I35.0 Nonrheumatic aortic (valve) stenosis; I11.0 Hypertensive heart disease with heart failure; I50.9 Heart failure, unspecified; I48.0 Paroxysmal atrial fibrillation; K21.9 Gastro-esophageal reflux disease without esophagitis; Z11.52 Encounter for screening for COVID-19; Z20.822 Contact with and (suspected) exposure to COVID-19; Z79.01 Long term (current) use of anticoagulants; Z79.4 Long term (current) use of insulin; Z85.3 Personal history of malignant neoplasm of breast; Z86.711 Personal history of pulmonary embolism; Z91.199 Patient's noncompliance with other medical treatment and regimen due to unspecified reason; Z86.73 Personal history of transient ischemic attack (TIA), and cerebral infarction without residual deficits; Z93.2 Ileostomy status
CPT/HCPCS: 36415; 70360; 70491; 71045; 71046; 76536; 80048; 80053; 81001; 82948; 83036; 83605; 83690; 83735; 84484; 85025; 85027; 85610; 85730; 86140; 87040; 87086; 87635; 87637; 87651; 92610; 93005; 93306; 94640; 96361; 96365; 96374; 96375; 99285; A9270; G0378; J0295; J0696; J1200; J1815; J1940; J2470; J2704; J2919; J7030; J7120; Q9967

== ENCOUNTER 2023-12-24 08:27 | Outpatient (CLI) | payer MEDICARE, MEDICAID, SELFPAY ==
--- NOTE | ~2023-12-24 | CT_ITS ---
EXAMINATION: CT soft tissue neck chest w DATE: 12/24/2023 09:20 INDICATION: Neck and chest pain and swelling. TECHNIQUE: Computed tomography (CT) of the neck and chest was performed with 75 mL Omnipaque-350 intr avenous contrast. Automated exposure control and iterative reconstruction technique were employed. Th e dose-length product was 900.68 mGy-cm. COMPARISON: CT neck 11/13/2023 FINDINGS: CT NECK: There are likely changes of right ocular lens replacement surgery. There are no pathological ly enlarged lymph nodes. There are nodules in the thyroid measuring up to 11 mm, likely not clinicall y significant. There is plaque in the proximal internal carotid arteries with velocities the degree o f stenosis relative to normal distal artery lumen diameters. The pharynx and larynx are normal. The i nflammation previously seen involving the cervical esophagus has resolved. There is moderate cervical spondylosis. CT CHEST: The lungs demonstrate mild atelectasis. There is mild bronchiectasis in the inferior lungs. Calcified right lung nodules and calcified right hilar and mediastinal lymph nodes are consistent wi old granulomatous disease. No pleural effusion. The heart size is normal. There are coronary arter y calcifications. No pericardial effusion. Calcifications in the liver and spleen are consistent with old granulomatous disease. There are bridging endplate osteophytes at multiple levels in the spine, consistent with diffuse idiopathic skeletal hyperostosis (DISH). IMPRESSION: 1. Interval resolution of the inflammation previously seen involving the cervical esophagus. Reviewed, dictated and finalized at location A. IMPRESSION: 1. Interval resolution of the inflammation previously seen involving the cervic al esophagus.
== END 2023-12-24 08:28 | disposition home or self-care (01) ==
LOC: ANHIMG 08:33
PROVIDERS: PCP Family Medicine; Visit Provider Family Medicine
DX: R22.1 Localized swelling, mass and lump, neck (principal)
CPT/HCPCS: 70491; 71260; Q9967

== ENCOUNTER 2024-05-19 14:27 | Inpatient (IN) | payer MEDICARE, MEDICAID, SELFPAY ==
[2024-05-19] VITALS (20 sets, daily range): BP systolic 110–175; BP diastolic 52–78; PULSE 84–99; RESP 16–27; TEMP 37.5–38.3; O2SAT 93–99
--- NOTE | ~2024-05-19 | XR_ITS ---
EXAMINATION: XR chest 2V Exam Date/Time: 05/19/2024 14:50 FORMULA ROOM WORKER HISTORY: cough Comparison: 11/16/2023, 11/11/2023. RESULT: Lines, tubes, and devices: None. Lungs and pleura: Segmental airspace disease, possibly in the right lower lobe. Senescent changes. G ranulomas calcifications. Cardiomediastinal silhouette: Stable. Other: No acute osseous or upper abdominal finding. IMPRESSION: Segmental lower lobe atelectasis/consolidation, possibly in the right lower lobe. Reviewed, dictated and finalized at location K. ULA ROOM WORKER IMPRESSION: Segmental lower lobe atelectasis/consolidation, possibly in the right lower lob e.
--- NOTE | ~2024-05-19 | XR_ITS ---
XR chest 1V portable Ordering provider: Aguila Amaya MD History: 83 years Female with . PNA, worsening sob . Comparison: May 19, 2024 FINDINGS: MEDIASTINUM: The cardiac silhouette is slightly enlarged. LUNGS: No effusions or pneumothorax. Bilateral interstitial and alveolar opacification suggestive of pneumonia. Atypical or viral pneumonia should be considered. Underlying pulmonary edema cannot be inc luded. OTHER: No free air under the diaphragm. IMPRESSION: Bilateral pneumonia. Underlying pulmonary edema is not excluded Reviewed, dictated and finalized at location A. VITY ASSISTANT
--- NOTE | ~2024-05-19 | XR_ITS ---
XR chest 1V portable 05/25/2024 15:44 Indication: Shortness of breath Procedure: AP portable chest Comparison: Comparison to multiple prior studies sequentially, with oldest reviewed study dated 11/15. Findings: Borderline heart size. Diffuse bilateral airspace disease, most likely edema. Possible smal l effusion. No pneumothorax. Impression: 1: Diffuse bilateral airspace disease, most likely pulmonary edema. Pneumonia less favored. Reviewed, dictated and finalized at location B. N REMOVER Impression: 1: Diffuse bilateral airspace disease, most likely pulmonary edema. Pneumonia l ess favored.
--- NOTE | 2024-05-19 14:35 | ECG_ITS ---
Test Date: 2024-05-19 14:40:44 Measurements Intervals [place] Rate: 89 P: -46 ID: [id number] QRS: -62 QRSD: 120 T: 76 QT: 304 QTc: 370 Interpretive Statements SINUS RHYTHM LEFT ANTERIOR FASCICULAR BLOCK [QRS AXIS <= -45, QR IN I, RS IN II] NONSPECIFIC ST & T-WAVE ABNORMALITY Compared to ECG 11/13/2023 07:02:27 T-wave abnormality now present Sinus tachycardia no longer present Electronically Signed On 05-24-2024 10:20:39 FLIGHT CONTROL TOWER OPERATOR by Phillip Zapata M.D.
[2024-05-19 15:01] LABS: Hematocrit 44.2 % (37.0-47.0); Hemoglobin 14.8 g/dL (12.0-15.0); Mean Corpuscular HGB Conc 33.5 g/dl (32-36); Mean Corpuscular Hemoglobin 28.4 pg (26-34); Mean Corpuscular Volume 84.8 fl (80-100); Mean Platelet Volume 11.1 fl (7.4-10.4); Platelet Count Result 254 k/mm3 (150-375); Red Blood Count 5.21 M/mm3 (4.2-5.4); Red Cell Distribution Width 13.4 % (11.5-14.5); White Blood Count 43.4 K/mm3 (4.5-10.0)
[2024-05-19 15:19] LABS: Potassium 3.8 mmol/L (3.4-5.0)
[2024-05-19 15:20] LABS: Lactic Acid Reflex 3.7 mmol/L (0.7-2.0)
[2024-05-19 15:31] LABS: Alanine Aminotransferase 24 U/L (6-35); Albumin Level 3.6 g/dL (3.5-5.1); Alkaline Phosphatase 117 U/L (38-126); Anion Gap 6 mmol/L (4-12); Aspartate Amino Transferase 23 U/L (14-36); Bilirubin,Total 0.8 mg/dL (0.2-1.3); Blood Urea Nitrogen 15 mg/dL (7-17); Calcium 9.9 mg/dL (8.4-10.2); Carbon Dioxide 21 mmol/L (22-30); Chloride 104 mmol/L (98-107); Estimated CRCL calculation 63 ml/min; Estimated Glomerular Filt Rate > 60; Glucose 366 mg/dL (65-110); Sodium 131 mmol/L (137-145)
[2024-05-19 15:34] LABS: Influenza A QL RT-PCR Negative (Negative); Influenza B QL RT-PCR Negative (Negative); RSV RNA, RT-PCR Negative (Negative); SARS-CoV-2 RNA PCR Negative (Negative)
[2024-05-19] MEDS: IPRATROPIUM 0.5 MG/ALBUTEROL SULFATE 2.5 MG AMPUL.NEB 3 ML INHALATION (15:38)
[2024-05-19 15:50] LABS: Add Urine Microscopic? YES; Appearance Urine Turbid (Clear); Bacteria Urine 4+ /hpf; Bilirubin Urine Negative (Negative); Blood Urine 3+ (Negative); Color Urine Yellow (Yellow); Glucose Urine UA 2+ mg/dL (Negative); Ketones Urine Negative (Negative); Leukocyte Esterase Ur 2+ LEU/UL (Negative); Need Manual Microscopic Reviewed; Nitrate Urine Positive (Negative); Protein Urine 2+ mg/dL (Negative); Specific Grav Ur 1.017 (1.001-1.035); Squamous Epithelial Cell Urine Occasional /hpf (Few); Urobilinogen Urine 0.2 mg/dL (<2.0); pH Urine >=9.0 (5.0-9.0)
--- NOTE | 2024-05-19 15:57 | ED.GENADULT ---
HPI - General Adult General Chief complaint: Shortness of Breath/Dyspnea Stated complaint: SOB Time Seen by Provider: 05/19/24 14:38 History of Present Illness HPI narrative: Patient is an 83-year-old female who presents ER with shortness of breath. Overall or [facility]. Reports productive cough. No chest pain. Patient has chronic developing cannot walk. Lower extremities and cushion foods. Patient is ileostomy and urinary catheter. Coarse rales audible from the bedside. Related Data Home Medications ?Medication ?Instructions ?Recorded ?Confirmed ?Last Taken ?Type apixaban 5 mg tablet (Eliquis) 5 mg PO BID 03/11/22 05/19/24 05/19/24 History cranberry extract 425 mg capsule 425 mg PO DAILY 03/11/22 05/19/24 05/19/24 History dorzolamide 2 % eye drops 2 drp EACH EYE TID 03/11/22 05/19/24 05/19/24 History flecainide 50 mg tablet 50 mg PO BID 03/11/22 05/19/24 05/19/24 History levothyroxine 75 mcg tablet 75 mcg PO DAILY 03/11/22 05/19/24 05/19/24 History nitroglycerin 0.4 mg sublingual 0.4 mg sublingual PRN PRN Chest 03/11/22 05/19/24 12/09/22 19:00 History tablet Pain rosuvastatin 10 mg tablet 10 mg PO HS 03/11/22 05/19/24 05/19/24 History arginine-vitamin C-vitamin E oral 1 g PO BID 10/28/22 05/19/24 05/19/24 History 4.5 gram-156 mg/9.2 gram powder pkt (Arginaid) escitalopram oxalate 10 mg tablet 10 mg PO QHS 10/28/22 05/19/24 05/17/24 History acetaminophen 500 mg capsule 1,000 mg PO Q6H PRN pain 11/03/22 05/19/24 05/18/24 History bromfenac 0.09 % eye drops 1 drp RIGHT EYE HS 11/03/22 05/19/24 05/18/24 History Antacid (calcium carbonate) 500 mg PO BID PRN Indigestion 05/11/23 05/19/24 Unknown History Saccharomyces boulardii 250 mg 250 mg PO BID 05/11/23 05/19/24 05/19/24 History capsule (Florastor) acetic acid 0.25 % irrigation 30 ml irrigation EVERY OTHER DAY 05/11/23 05/19/24 05/19/24 History solution hyoscyamine sulfate 0.125 mg tablet 0.125 mg PO BID PRN cramping 05/11/23 05/19/24 Unknown History nystatin 100,000 unit/gram topical 1 applic topical BID 05/11/23 05/19/24 05/18/24 History cream ciclopirox 0.77 % topical gel 1 applic topical HS 11/13/23 05/19/24 05/18/24 History pantoprazole 40 mg tablet,delayed 40 mg PO DAILY 11/13/23 05/19/24 05/19/24 History release albuterol sulfate 90 mcg/actuation 2 puff inhalation PRN asthma 05/19/24 05/19/24 Unknown History aerosol inhaler ferrous sulfate 325 mg (65 mg 325 mg PO BID 05/19/24 05/19/24 05/19/24 History iron) tablet (Kassie-Time) insulin glargine 100 unit/mL (3 22 unit subcut QPM 05/19/24 05/19/24 05/18/24 History mL) subcutaneous pen (Lantus Solostar U-100 Insulin) insulin glargine 100 unit/mL 25 unit subcut HS 05/19/24 05/19/24 05/18/24 History subcutaneous solution (Lantus U-100 Insulin) insulin lispro 10 unit subcut BID 05/19/24 05/19/24 05/19/24 History insulin lispro 100 unit/mL 1 sliding scale dose subcut BID 05/19/24 05/19/24 05/19/24 History subcutaneous pen (Humalog KwikPen (U-100) Insulin) nystatin 100,000 unit/mL oral 5 ml PO QID 05/19/24 05/19/24 05/10/24 History suspension triamcinolone acetonide 0.1 % applic topical QID PRN rash 05/19/24 03/08/24 History topical cream Allergies Allergy/AdvReac Type Severity Reaction Status Date / Time black pepper Allergy Unknown Verified 11/18/23 11:20 diltiazem Allergy Unknown Verified 11/18/23 11:20 donepezil Allergy Unknown Verified 11/18/23 11:20 fluticasone Allergy Unknown Verified 11/18/23 11:20 metformin Allergy Unknown Verified 11/18/23 11:20 Review of Systems Review of Systems: All systems reviewed & are unremarkable except as noted in HPI and below Constitutional: Constitutional: Reports chills, Reports fatigue and Reports fever(s) ENT: Reports system reviewed and no additional complaints, except as documented Cardiovascular: Cardiovascular: Reports no additional cardiovascular complaints Respiratory: Respiratory: Reports cough, Reports dyspnea and Reports wheezing Gastrointestinal: Gastrointestinal: Reports no additional gastrointestinal complaints [facility] Past Medical History Medical History (Updated 05/19/24 @ 19:43 by Duane Tomas MD) Chronic anticoagulation Paroxysmal atrial fibrillation Obstructive sleep apnea Noncompliant with CPAP. Transient ischemic attack Gastroesophageal reflux disease Familial spastic paraplegia Glaucoma History of pulmonary embolism Multiple sclerosis Suprapubic catheter in place. 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 History of suprapubic catheter History of hysterectomy Family History Family History Father Spastic paralysis Mother Breast cancer Social History Social History Social History: Surrogate medical decision maker: Ange Reyes or Nancy John, daughters. Code status: Full code. Smoking status: Never smoker Second hand tobacco smoke exposure: No Alcohol intake: never Substance use: never Substance use type: does not use Do You Feel Safe in your Home?: Yes Lack of Transportation: No Lack of Food: Never True Current Housing: I Have Housing Concerned About Future Housing: No Difficulty Paying Gas/Electric Bills: No Difficulty Paying for Meds: No Currently Unemployed: No Education: Decline to Answer Difficulty w/ Childcare or Family Care: No Living arrangements: [facility] Additional living arrangements comments: Kourtney Hilton. Has 3 daughters. Additional occupation/education comments: [employer]. Spiritual care concerns: No Exam Narrative: GENERAL: Chronically ill--appearing, well-nourished, and in no acute distress. HEAD: Normocephalic, atraumatic. ENT: Mucous membranes moist. CHEST: Coarse rales bilaterally. Mild respiratory distress. HEART: Regular rate and rhythm. Normal peripheral pulses. ABDOMEN: Soft, nontender, nondistended. ileostomy bag noted lower abdomen EXTREMITIES: BLE padded. [place] upper extremities well. SKIN: Warm, dry, no rash. NEURO: Alert and oriented x3. PSYCH: Normal mood and affect. Course Course Emergency Course: Admit to hospitalist. Broad-spectrum antibiotics ordered. Received 30 milliliters/kilogram bolus of IV fluid. White blood cell count significantly elevated but also has history of elevated white blood cell counts. Glucose 366 and lactate 3.7. Urinalysis also with 4+ bacteria and white blood cells. May be chronic contamination but antibiotics may cover potential infection. Vital Signs Vital signs: Vital Signs Temperature 100.9 F H 05/19/24 14:37 Pulse Rate 88 05/19/24 14:37 Respiratory Rate 18 05/19/24 14:37 Blood Pressure 138/68 05/19/24 14:37 Pulse Oximetry 95 05/19/24 14:37 Oxygen Delivery Room Air 05/19/24 14:37 Temperature 99.5 F 05/19/24 19:14 Pulse Rate 88 05/19/24 19:14 Respiratory Rate 22 H 05/19/24 19:14 Blood Pressure 132/62 05/19/24 19:14 Pulse Oximetry 95 05/19/24 19:14 Oxygen Delivery Room Air 05/19/24 16:00 Medical Decision Making Vital Signs Vital Signs: Vital Signs Temperature 100.9 F H 05/19/24 14:37 Pulse Rate 88 05/19/24 14:37 Respiratory Rate 18 05/19/24 14:37 Blood Pressure 138/68 05/19/24 14:37 Pulse Oximetry 95 05/19/24 14:37 Oxygen Delivery Room Air 05/19/24 14:37 Temperature 99.5 F 05/19/24 19:14 Pulse Rate 88 05/19/24 19:14 Respiratory Rate 22 H 05/19/24 19:14 Blood Pressure 132/62 05/19/24 19:14 Pulse Oximetry 95 05/19/24 19:14 Oxygen Delivery Room Air 05/19/24 16:00 Lab Data 05/19/24 14:48 05/19/24 14:48 Labs: Lab Results 05/19/24 Range/Units 14:48 WBC 43.4 H (4.5-10.0) K/mm3 RBC 5.21 (4.2-5.4) M/mm3 Hgb 14.8 (12.0-15.0) g/dL Hct 44.2 (37.0-47.0) % MCV 84.8 (80-100) fl MCH 28.4 (26-34) pg MCHC 33.5 (32-36) g/dl RDW 13.4 (11.5-14.5) % Plt Count 254 (150-375) k/mm3 MPV 11.1 H (7.4-10.4) fl Immature Gran % (Auto) Not Reportable Neut % (Auto) Not Reportable Lymph % (Auto) Not Reportable [place] % (Auto) Not Reportable Eos % (Auto) Not Reportable Baso % (Auto) Not Reportable Lymph # (Auto) Not Reportable [place] # (Auto) Not Reportable Eos # (Auto) Not Reportable Baso # (Auto) Not Reportable Abs Immat Gran (auto) Not Reportable Absolute Neuts (auto) Not Reportable Absolute Nucleated RBC Not Reportable Total Counted 100 Neutrophils % (Manual) 81 H (46-73) % Lymphocytes % (Manual) 5.0 L (18-44) % Monocytes % (Manual) 14 H (3-9) % Nucleated RBC % Not Reportable Abs Lymphs (Manual) 2.17 (1.1-4.5) K/mm3 Abs Monocytes (Manual) 6.07 H (0.1-0.90) K/mm3 Platelet Estimate Adequate (Adequate) Schistocytes None seen Sodium 131 L (137-145) mmol/L Potassium 3.8 (3.4-5.0) mmol/L Chloride 104 (98-107) mmol/L Carbon Dioxide 21 L (22-30) mmol/L Anion Gap 6 (4-12) mmol/L BUN 15 (7-17) mg/dL Creatinine 0.60 L (0.7-1.0) mg/dL Estim Creat Clear Calc 63 ml/min Estimated GFR > 60 (59 - ) Glucose 366 H (65-110) mg/dL Lactic Acid 3.7 H (0.7-2.0) mmol/L Calcium 9.9 (8.4-10.2) mg/dL Total Bilirubin 0.8 (0.2-1.3) mg/dL AST 23 (14-36) U/L ALT 24 (6-35) U/L Alkaline Phosphatase 117 (38-126) U/L Total Protein 7.0 (6.3-8.2) g/dL Albumin 3.6 (3.5-5.1) g/dL Urine Color Yellow (Yellow) Urine Appearance Turbid H (Clear) Urine pH >=9.0 H (5.0-9.0) Ur Specific [place] 1.017 (1.001-1.035) Urine Protein 2+ H (Negative) mg/dL Urine Glucose (UA) 2+ H (Negative) mg/dL Urine Ketones Negative (Negative) mg/dL Ur Blood (Man) 3+ H (Negative) Urine Nitrate Positive H (Negative) Urine Bilirubin Negative (Negative) Urine Urobilinogen 0.2 (<2.0) mg/dL Add Ur Microanalysis Reviewed Leukocyte Esterase Rfl 2+ H (Negative) ANABELA/UL Urine RBC 11-20 H (0-2) /hpf Urine WBC 11-20 H (0-3) /hpf Ur Squamous Epith Cells Occasional (Few) /hpf Urine Bacteria 4+ /hpf Urine Casts 3-5 Influenza A (RT-PCR) Negative (Negative) Influenza B (RT-PCR) Negative (Negative) RSV (RT-PCR) Negative (Negative) SARS-CoV-2 RNA (RT-PCR) Negative (Negative) Imaging Data Radiologist's impression: ITS Impressions Chest X-Ray 05/19/24 15:03 IMPRESSION: Segmental lower lobe atelectasis/consolidation, possibly in the right lower lobe. Discharge Plan Discharge Clinical Impression: Pneumonia Patient Disposition: Still a Patient Condition: Stable
[2024-05-19 16:06] LABS: Lymphocytes Absolute Manual 2.17 K/mm3 (1.1-4.5); Monocytes Absolute Manual 6.07 K/mm3 (0.1-0.90); Monocytes Percent Manual 14 % (3-9); Neutrophils Percent Manual 81 % (46-73); Platelet Estimate Adequate (Adequate); Total Cells Counted 100
[2024-05-19 16:07] LABS: Schistocytes None Seen
[2024-05-19] MEDS: SODIUM CHLORIDE 0.9% IV 1,000 ML 999 ML IV CONT ×2 (16:08)
[2024-05-19] MEDS: AZITHROMYCIN 500 MG/NS 250 ML 500 MG/250 ML BAG 250 MG IVPB (16:12)
[2024-05-19] MEDS: SODIUM CHLORIDE 0.9% IV 500 ML 999 ML IV CONT (16:12)
[2024-05-19 17:56] LABS: Reflex Lactic Acid Yes or No Add Lactic
[2024-05-19] MEDS: SODIUM CHLORIDE 0.9% IV 1,000 ML 125 ML IV CONT (18:22)
[2024-05-19 20:10] LABS: Lactic Acid 2.6 mmol/L (0.7-2.0)
[2024-05-19] MEDS: IPRATROPIUM 0.5 MG/ALBUTEROL SULFATE 2.5 MG AMPUL.NEB 3 ML NEBULIZE (20:41)
[2024-05-20] VITALS (25 sets, daily range): BP systolic 130–148; BP diastolic 51–89; PULSE 72–91; RESP 15–24; TEMP 36.6–37.5; O2SAT 91–97; BMI 30.5
[2024-05-20] MEDS: SODIUM CHLORIDE 0.9% IV 1,000 ML 125 ML IV CONT (02:22)
[2024-05-20] MEDS: INSULIN GLARGINE (*BKC) 100 UNITS/ML 25 UNITS SUB-Q ×2 (02:27→20:32)
[2024-05-20 02:32] LABS: Glucose Point of Care 231 mg/dl (65-105)
[2024-05-20 02:34] LABS: Hemoglobin A1C 7.8 % (<5.7)
[2024-05-20] MEDS: IPRATROPIUM 0.5 MG/ALBUTEROL SULFATE 2.5 MG AMPUL.NEB 3 ML NEBULIZE ×3 (02:35→22:00)
[2024-05-20 03:37] LABS: Glucose Point of Care 229 mg/dl (65-105)
[2024-05-20 06:22] LABS: Basophils Absolute Auto 0.1 K/mm3 (0.0-0.1); Basophils Percent Auto 0.3 % (0.2-1.2); Eosinophils Percent Auto 0.1 % (0-4.4); Hematocrit 39.2 % (37.0-47.0); Hemoglobin 12.8 g/dL (12.0-15.0); Lymphocytes Absolute Auto 2.05 K/mm3 (0.9-3.2); Lymphocytes Percent Auto 6.9 % (18.3-44.2); Mean Corpuscular HGB Conc 32.7 g/dl (32-36); Mean Corpuscular Hemoglobin 28.3 pg (26-34); Mean Corpuscular Volume 86.7 fl (80-100); Mean Platelet Volume 10.9 fl (7.4-10.4); Monocytes Absolute Auto 5.3 K/mm3 (0.1-0.6); Monocytes Percent Auto 17.6 % (2.6-8.5); Neutrophils Absolute Auto 22.2 K/mm3 (1.3-6.7); Neutrophils Percent Auto 74.1 % (45.5-73.1); Platelet Count Result 210 k/mm3 (150-375); Red Blood Count 4.52 M/mm3 (4.2-5.4); Red Cell Distribution Width 13.5 % (11.5-14.5); White Blood Count 29.9 K/mm3 (4.5-10.0)
[2024-05-20 06:32] LABS: Alanine Aminotransferase 17 U/L (6-35); Alkaline Phosphatase 82 U/L (38-126); Anion Gap 5 mmol/L (4-12); Aspartate Amino Transferase 19 U/L (14-36); Bilirubin,Total 0.8 mg/dL (0.2-1.3); Blood Urea Nitrogen 10 mg/dL (7-17); Carbon Dioxide 20 mmol/L (22-30); Chloride 111 mmol/L (98-107); Estimated CRCL calculation 63 ml/min; Estimated Glomerular Filt Rate > 60; Glucose 216 mg/dL (65-110); Magnesium 1.8 mg/dL (1.6-2.3); Potassium 3.1 mmol/L (3.4-5.0); Sodium 136 mmol/L (137-145)
--- NOTE | 2024-05-20 07:28 | ADMGEN ---
This patient, Perla Leon, was admitted to IMU Room 211-01 on 05/20/24 at 0635. Patient/family oriented to hospital policies and general routines including ID bracelet, bed and alarms, visiting hours, pain management, procedures, bathroom and other care routines, personal items, smoking policy, room service/diet, and visiting hours. Pt unable to provide H&P at this time due to AMS. H&P provided per the [place] paperwork and the chart. Information on how to activate the Rapid Response Team has been discussed. Patient/Family are encouraged to report perceived risks to care and to ask questions if they do not understand what they are told or what they should do.
[2024-05-20] MEDS: LEVOTHYROXINE SODIUM 75 MCG TABLET PO (08:06)
[2024-05-20 08:08] LABS: Glucose Point of Care 219 mg/dl (65-105)
--- NOTE | 2024-05-20 08:14 | PM.IMHP ---
H&P: HPI History of Present Illness Date/Time: 05/20/24 08:14 Chief Complaint: Shortness of breath Narrative: This is an 83-year-old female [place] [facility] resident presented with shortness of breath with productive cough. No chest pain. Patient nonambulatory. No leg swelling. High as I ileostomy and suprapubic catheter and. She had coarse rales audible from bedside. In the ED she was febrile however blood pressure was stable. Laboratory data showed WBC of 43.4 hemoglobin 14.8 came panel showed mild hyponatremia and hyperglycemia. Lactate came back elevated at 3.7. Urinalysis was positive for 11-20 WBC and RBC with positive leukocyte esterase and nitrate. Influenza RSV COVID swab was negative. Chest x-ray showed segmental lower lobe atelectasis/consolidation in right lower lobe. She received IV fluid resuscitation in the ER. She does have chronic history of elevated white blood cell count. She is admitted in this setting for further treatment. Review of Systems Review of Systems: - CONSTITUTIONAL: Denies weight loss, fever and chills. - HEENT: Denies changes in vision and hearing - RESPIRATORY: Reports SOB and cough. - CV: Denies palpitations and CP. - GI: Denies abdominal pain, nausea, vomiting and diarrhea. - : Denies dysuria and urinary frequency. - MSK: Denies myalgia and joint pain. - SKIN: Denies rash and pruritus. - NEUROLOGICAL: Denies headache and syncope. - PSYCHIATRIC: Denies recent changes in mood. Denies anxiety and depression. [facility] Past Medical History Medical History (Updated 05/19/24 @ 19:43 by Duane Tomas MD) Chronic anticoagulation Paroxysmal atrial fibrillation Obstructive sleep apnea Noncompliant with CPAP. Transient ischemic attack Gastroesophageal reflux disease Familial spastic paraplegia Glaucoma History of pulmonary embolism Multiple sclerosis Suprapubic catheter in place. 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 History of suprapubic catheter History of hysterectomy Family History Family History Father Spastic paralysis Mother Breast cancer Social History Social History Social History: Surrogate medical decision maker: Ange Reyes or Nancy John, daughters. Code status: Full code. Smoking status: Never smoker Second hand tobacco smoke exposure: No Alcohol intake: never Substance use: never Substance use type: does not use Do You Feel Safe in your Home?: Yes Lack of Transportation: No Lack of Food: Never True Current Housing: I Have Housing Concerned About Future Housing: No Difficulty Paying Gas/Electric Bills: No Difficulty Paying for Meds: No Currently Unemployed: No Education: Decline to Answer Difficulty w/ Childcare or Family Care: No [place] [facility] Additional living arrangements comments: [facility]. Has 3 daughters. Additional occupation/education comments: [employer]. Spiritual care concerns: No Meds Home Medications and Allergies Home Medications ?Medication ?Instructions ?Recorded ?Confirmed ?Type apixaban 5 mg tablet (Eliquis) 5 mg PO BID 03/11/22 05/19/24 History cranberry extract 425 mg capsule 425 mg PO DAILY 03/11/22 05/19/24 History dorzolamide 2 % eye drops 2 drp EACH EYE TID 03/11/22 05/19/24 History flecainide 50 mg tablet 50 mg PO BID 03/11/22 05/19/24 History levothyroxine 75 mcg tablet 75 mcg PO DAILY 03/11/22 05/19/24 History nitroglycerin 0.4 mg sublingual 0.4 mg sublingual PRN PRN Chest 03/11/22 05/19/24 History tablet Pain rosuvastatin 10 mg tablet 10 mg PO HS 03/11/22 05/19/24 History arginine-vitamin C-vitamin E oral 1 g PO BID 10/28/22 05/19/24 History 4.5 gram-156 mg/9.2 gram powder pkt (Arginaid) escitalopram oxalate 10 mg tablet 10 mg PO QHS 10/28/22 05/19/24 History furosemide 40 mg tablet 40 mg PO DAILY #30 tabs 11/01/22 05/19/24 Rx acetaminophen 500 mg capsule 1,000 mg PO Q6H PRN pain 11/03/22 05/19/24 History bromfenac 0.09 % eye drops 1 drp RIGHT EYE HS 11/03/22 05/19/24 History melatonin 5 mg tablet 5 mg PO HS #30 tabs 11/06/22 05/19/24 Rx levothyroxine 75 mcg tablet 150 mcg (2 x 75 mcg) PO .qsunday 12/19/22 05/19/24 Rx #7 tabs Antacid (calcium carbonate) 500 mg PO BID PRN Indigestion 05/11/23 05/19/24 History Saccharomyces boulardii 250 mg 250 mg PO BID 05/11/23 05/19/24 History capsule (Florastor) acetic acid 0.25 % irrigation 30 ml irrigation EVERY OTHER DAY 05/11/23 05/19/24 History solution hyoscyamine sulfate 0.125 mg tablet 0.125 mg PO BID PRN cramping 05/11/23 05/19/24 History nystatin 100,000 unit/gram topical 1 applic topical BID 05/11/23 05/19/24 History cream ciclopirox 0.77 % topical gel 1 applic topical HS 11/13/23 05/19/24 History pantoprazole 40 mg tablet,delayed 40 mg PO DAILY 11/13/23 05/19/24 History release albuterol sulfate 90 mcg/actuation 2 puff inhalation PRN asthma 05/19/24 05/19/24 History aerosol inhaler ferrous sulfate 325 mg (65 mg 325 mg PO BID 05/19/24 05/19/24 History iron) tablet (Kassie-Time) insulin glargine 100 unit/mL (3 22 unit subcut QPM 05/19/24 05/19/24 History mL) subcutaneous pen (Lantus Solostar U-100 Insulin) insulin glargine 100 unit/mL 25 unit subcut HS 05/19/24 05/19/24 History subcutaneous solution (Lantus U-100 Insulin) insulin lispro 10 unit subcut BID 05/19/24 05/19/24 History insulin lispro 100 unit/mL 1 sliding scale dose subcut BID 05/19/24 05/19/24 History subcutaneous pen (Humalog KwikPen (U-100) Insulin) nystatin 100,000 unit/mL oral 5 ml PO QID 05/19/24 05/19/24 History suspension triamcinolone acetonide 0.1 % applic topical QID PRN rash 05/19/24 History topical cream Allergies Allergy/AdvReac Type Severity Reaction Status Date / Time black pepper Allergy Unknown Verified 11/18/23 11:20 diltiazem Allergy Unknown Verified 11/18/23 11:20 donepezil Allergy Unknown Verified 11/18/23 11:20 fluticasone Allergy Unknown Verified 11/18/23 11:20 metformin Allergy Unknown Verified 11/18/23 11:20 Vital Signs Vital Signs - 24 hr 05/19/24 14:37 05/19/24 14:37 05/19/24 14:43 Temperature 100.9 F H Pulse Rate 88 89 88 Respiratory Rate 18 27 H Blood Pressure 138/68 138/68 Pulse Oximetry 95 95 Oxygen Delivery Room Air 05/19/24 15:38 05/19/24 15:54 05/19/24 16:00 Temperature Pulse Rate 87 94 Respiratory Rate 21 H 21 H Blood Pressure Pulse Oximetry 95 Oxygen Delivery Room Air 05/19/24 16:04 05/19/24 16:13 05/19/24 16:46 Temperature Pulse Rate 94 96 92 Respiratory Rate 25 H 22 H 19 Blood Pressure 143/52 H 143/52 H 128/57 L Pulse Oximetry 99 94 93 Oxygen Delivery 05/19/24 17:16 05/19/24 17:31 05/19/24 18:01 Temperature Pulse Rate 89 89 99 Respiratory Rate 24 H 22 H 19 Blood Pressure 110/63 133/58 L 175/78 H Pulse Oximetry 95 95 95 Oxygen Delivery 05/19/24 18:16 05/19/24 19:14 05/19/24 19:14 Temperature 99.5 F Pulse Rate 92 88 88 Respiratory Rate 18 22 H 20 Blood Pressure 152/56 H 132/62 132/62 Pulse Oximetry 96 95 96 Oxygen Delivery 05/19/24 19:58 05/19/24 20:42 05/19/24 20:48 Temperature Pulse Rate 88 86 85 Respiratory Rate 20 18 18 Blood Pressure Pulse Oximetry Oxygen Delivery 05/19/24 23:00 05/19/24 23:15 05/19/24 23:45 Temperature Pulse Rate 91 90 87 Respiratory Rate 19 17 16 Blood Pressure 138/59 L Pulse Oximetry 95 Oxygen Delivery 05/19/24 23:54 05/20/24 00:00 05/20/24 01:01 Temperature Pulse Rate 84 80 81 Respiratory Rate 20 21 H 20 Blood Pressure 138/57 L 143/56 H Pulse Oximetry 93 94 93 Oxygen Delivery 05/20/24 01:15 05/20/24 02:01 05/20/24 02:30 Temperature Pulse Rate 85 86 88 Respiratory Rate 20 20 19 Blood Pressure 144/58 H Pulse Oximetry 93 Oxygen Delivery 05/20/24 02:35 05/20/24 02:41 05/20/24 03:46 Temperature Pulse Rate 86 88 91 Respiratory Rate 18 18 15 Blood Pressure Pulse Oximetry Oxygen Delivery 05/20/24 04:30 05/20/24 05:07 05/20/24 05:15 Temperature Pulse Rate 84 78 76 Respiratory Rate 18 20 20 Blood Pressure Pulse Oximetry Oxygen Delivery 05/20/24 05:45 Temperature Pulse Rate 79 Respiratory Rate 20 Blood Pressure 132/61 Pulse Oximetry 94 Oxygen Delivery Exam Narrative: GENERAL: Chronically ill--appearing, well-nourished, and in no acute distress. HEAD: Normocephalic, atraumatic. ENT: Mucous membranes moist. CHEST: Coarse rales bilaterally. No respiratory distress HEART: Regular rate and rhythm. Normal peripheral pulses. ABDOMEN: Soft, nontender, nondistended. ileostomy bag noted lower abdomen suprapubic catheter in situ EXTREMITIES: No edema no cyanosis or clubbing SKIN: Warm, dry, no rash. NEURO: Alert and oriented x3. PSYCH: Normal mood and affect. H&P: Results Labs Labs: Short CBC 05/19/24 05/20/24 Range/Units 14:48 06:08 WBC 43.4 H 29.9 H (4.5-10.0) K/mm3 Hgb 14.8 12.8 (12.0-15.0) g/dL Hct 44.2 39.2 (37.0-47.0) % Plt Count 254 210 (150-375) k/mm3 BMP 05/19/24 05/20/24 14:48 06:08 Sodium 131 L 136 L Potassium 3.8 3.1 L Chloride 104 111 H Carbon Dioxide 21 L 20 L BUN 15 10 D Creatinine 0.60 L 0.60 L Glucose 366 H 216 H Calcium 9.9 9.0 Liver Function 05/19/24 05/20/24 Range/Units 14:48 06:08 Total Bilirubin 0.8 0.8 (0.2-1.3) mg/dL AST 23 19 (14-36) U/L ALT 24 17 (6-35) U/L Alkaline Phosphatase 117 82 (38-126) U/L Albumin 3.6 3.0 L (3.5-5.1) g/dL Urine 05/19/24 Range/Units 14:48 Urine Color Yellow (Yellow) Urine Appearance Turbid H (Clear) Urine pH >=9.0 H (5.0-9.0) Ur Specific [place] 1.017 (1.001-1.035) Urine Protein 2+ H (Negative) mg/dL Urine Glucose (UA) 2+ H (Negative) mg/dL Assessment and Plan Assessment and plan (1) Hypertension: Code(s): I10 - Essential (primary) hypertension Status: Acute (2) Paroxysmal atrial fibrillation: Code(s): I48.0 - Paroxysmal atrial fibrillation Status: Acute (3) Chronic anticoagulation: Code(s): Z79.01 - 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 of anticoagulants Status: Acute (4) Type 2 diabetes mellitus: Qualifiers: Diabetes mellitus fpc insulin use: with termite renewal inspector use Diabetes mellitus complication status: without complication Qualified Code(s): E11.9 - Type 2 diabetes mellitus without complications; Z79.4 - senior care (current) use of insulin Code(s): E11.9 - Type 2 diabetes mellitus without complications Status: Acute (5) Type 2 diabetes mellitus with diabetic neuropathy, unspecified: Code(s): E11.40 - Type 2 diabetes mellitus with diabetic neuropathy, unspecified Status: Acute (6) Hypothyroidism: Code(s): E03.9 - Hypothyroidism, unspecified Status: Acute (7) UTI (urinary tract infection): Qualifiers: Hematuria presence: with hematuria Urinary tract infection type: acute cystitis Qualified Code(s): N30.01 - Acute cystitis with hematuria Code(s): N39.0 - Urinary tract infection, site not specified Status: Acute (8) Leukocytosis: Code(s): D72.829 - Elevated white blood cell count, unspecified Status: Acute (9) Pneumonia: Code(s): J18.9 - Pneumonia, unspecified organism Status: Acute Plan This is an 83-year-old female [place] [facility] resident presented with shortness of breath with productive cough. No chest pain. Patient nonambulatory. No leg swelling. High as I ileostomy and suprapubic catheter and. She had coarse rales audible from bedside. In the ED she was febrile however blood pressure was stable. Laboratory data showed WBC of 43.4 hemoglobin 14.8 came panel showed mild hyponatremia and hyperglycemia. Lactate came back elevated at 3.7. Urinalysis was positive for 11-20 WBC and RBC with positive leukocyte esterase and nitrate. Influenza RSV COVID swab was negative. Chest x-ray showed segmental lower lobe atelectasis/consolidation in right lower lobe. She received IV fluid resuscitation in the ER. She does have chronic history of elevated white blood cell count. She is admitted in this setting for further treatment. EKG showed sinus rhythm with nonspecific ST-T changes. Chronic leukocytosis ranging in 14-15 Patient received a dose of ceftriaxone and azithromycin. For pneumonia and possible UTI Blood cultures been obtained and will be followed Lactic acidosis improving with IV fluid resuscitation. Recheck lactic acid Type 2 diabetes Hypothyroidism Chronic congestive heart failure Status post colostomy Suprapubic catheter in situ changed every 2 weeks Multinodular goiter DVT prophylaxis on Eliquis Code status full code
[2024-05-20 08:49] LABS: Lactic Acid Reflex 1.5 mmol/L (0.7-2.0)
[2024-05-20 08:52] LABS: MRSA (PCR) NOT DETECTED (NOT DETECTE)
[2024-05-20] MEDS: SACCHAROMYCES BOULARDII 250 MG CAPSULE PO ×2 (09:52→16:29)
[2024-05-20] MEDS: PANTOPRAZOLE 40 MG TABLET PO (09:52)
[2024-05-20] MEDS: APIXABAN 5 MG TABLET PO ×2 (09:53→20:30)
[2024-05-20] MEDS: FLECAINIDE ACETATE 50 MG TABLET PO ×2 (09:54→20:29)
[2024-05-20] MEDS: DORZOLAMIDE HCL 2% OPHTH DROPS 2 DROP EACH EYE ×2 (09:56→12:30)
[2024-05-20] MEDS: SODIUM CHLORIDE 0.9% IV 1,000 ML 75 ML IV CONT ×2 (10:11→20:33)
[2024-05-20] MEDS: POTASSIUM CHLORIDE 20 MEQ ER TABLET 40 MEQ PO (10:13)
--- NOTE | 2024-05-20 12:03 | PC.NURSE ---
[id number]- called report to Kyleigh NUNES -phoned daughter Nancy and notified of transfer to [facility];- transferred to room 305 via bed accompanied by staff @1200
[2024-05-20 12:04] LABS: Glucose Point of Care 219 mg/dl (65-105)
[2024-05-20] MEDS: FERROUS SULFATE 325 MG TABLET DR BY MOUTH ×2 (12:28→16:29)
[2024-05-20] MEDS: INSULIN ASPART (*BKC) 100 UNITS/ML SUB-Q ×2 (12:29→17:38)
--- NOTE | 2024-05-20 15:02 | PC.NURSE ---
This patient, Perla Leon, was received from IMU on 05/20/24 at 1200. Report received from DES Caro. Patient/family oriented to unit policies and routines
[2024-05-20] MEDS: AZITHROMYCIN 500 MG/NS 250 ML 500 MG/250 ML BAG 250 MG IVPB (15:10)
--- NOTE | 2024-05-20 15:26 | P.CONUR_ITS ---
Assessment and Plan Assessment and plan (1) Blocked suprapubic catheter: Qualifiers: Encounter type: initial encounter Qualified Code(s): T83.090A - Other mechanical complication of cystostomy catheter, initial encounter Code(s): T83.090A - Other mechanical complication of cystostomy catheter, initial encounter Status: Acute Assessment and Plan: * 20 F suprapubic catheter replaced at bedside without difficulty Plan Urology will sign off at this time. Please call with any questions or concerns Urology Consult Note HPI Date Seen: 05/20/24 Requesting Physician: Sonny Mora MD Primary Care Provider: Elizabeth Car, Consult Narrative Narrative: Perla Leon is a 83 year old female who has a chronic indwelling suprapubic catheter that is changed every 3 weeks at her nursing facility. She is admitted with UTI and noted to have leakage around the catheter. It is due to be changed tomorrow. Review of Systems 2 Review of Systems: All systems reviewed & are unremarkable except as noted in HPI and below PMFSH Past Medical History Medical History (Updated 05/19/24 @ 19:43 by Duane Tomas MD) Chronic anticoagulation Paroxysmal atrial fibrillation Obstructive sleep apnea Noncompliant with CPAP. Transient ischemic attack Gastroesophageal reflux disease Familial spastic paraplegia Glaucoma History of pulmonary embolism Multiple sclerosis Suprapubic catheter in place. 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 History of suprapubic catheter History of hysterectomy Family History Family History Father Spastic paralysis Mother Breast cancer Social History Social History Social History: Surrogate medical decision maker: Ange Reyes or Nancymainor John, daughters. Code status: Full code. Smoking status: Never smoker Second hand tobacco smoke exposure: No Alcohol intake: never Substance use: never Substance use type: does not use Do You Feel Safe in your Home?: Yes Lack of Transportation: No Lack of Food: Never True Current Housing: I Have Housing Concerned About Future Housing: No Difficulty Paying Gas/Electric Bills: No Difficulty Paying for Meds: No Currently Unemployed: No Education: Don't Know Difficulty w/ Childcare or Family Care: No Living arrangements: skilled nursing Additional living arrangements comments: [facility]. Has 3 daughters. Additional occupation/education comments: [employer]. Spiritual care concerns: No Meds Home Medications and Allergies Home Medications ?Medication ?Instructions ?Recorded ?Confirmed ?Type apixaban 5 mg tablet (Eliquis) 5 mg PO BID 03/11/22 05/19/24 History cranberry extract 425 mg capsule 425 mg PO DAILY 03/11/22 05/19/24 History dorzolamide 2 % eye drops 2 drp EACH EYE TID 03/11/22 05/19/24 History flecainide 50 mg tablet 50 mg PO BID 03/11/22 05/19/24 History levothyroxine 75 mcg tablet 75 mcg PO DAILY 03/11/22 05/19/24 History nitroglycerin 0.4 mg sublingual 0.4 mg sublingual PRN PRN Chest 03/11/22 05/19/24 History tablet Pain rosuvastatin 10 mg tablet 10 mg PO HS 03/11/22 05/19/24 History arginine-vitamin C-vitamin E oral 1 g PO BID 10/28/22 05/19/24 History 4.5 gram-156 mg/9.2 gram powder pkt (Arginaid) escitalopram oxalate 10 mg tablet 10 mg PO QHS 10/28/22 05/19/24 History furosemide 40 mg tablet 40 mg PO DAILY #30 tabs 11/01/22 05/19/24 Rx acetaminophen 500 mg capsule 1,000 mg PO Q6H PRN pain 11/03/22 05/19/24 History bromfenac 0.09 % eye drops 1 drp RIGHT EYE HS 11/03/22 05/19/24 History melatonin 5 mg tablet 5 mg PO HS #30 tabs 11/06/22 05/19/24 Rx levothyroxine 75 mcg tablet 150 mcg (2 x 75 mcg) PO .qsunday 12/19/22 05/19/24 Rx #7 tabs Antacid (calcium carbonate) 500 mg PO TID PRN Indigestion 05/11/23 05/20/24 History Saccharomyces boulardii 250 mg 250 mg PO BID 05/11/23 05/19/24 History capsule (Florastor) acetic acid 0.25 % irrigation 30 ml irrigation EVERY OTHER DAY 05/11/23 05/20/24 History solution hyoscyamine sulfate 0.125 mg tablet 0.125 mg PO BID PRN cramping 05/11/23 05/19/24 History nystatin 100,000 unit/gram topical 1 applic topical BID 05/11/23 05/19/24 History cream ciclopirox 0.77 % topical gel 1 applic topical HS 11/13/23 05/19/24 History pantoprazole 40 mg tablet,delayed 40 mg PO DAILY 11/13/23 05/19/24 History release albuterol sulfate 90 mcg/actuation 2 puff inhalation PRN asthma 05/19/24 05/19/24 History aerosol inhaler ferrous sulfate 325 mg (65 mg 325 mg PO BID 05/19/24 05/19/24 History iron) tablet (Kassie-Time) insulin glargine 100 unit/mL (3 22 unit subcut QPM 05/19/24 05/19/24 History mL) subcutaneous pen (Lantus Solostar U-100 Insulin) insulin glargine 100 unit/mL 25 unit subcut DAILY 05/19/24 05/20/24 History subcutaneous solution (Lantus U-100 Insulin) insulin lispro 10 unit subcut TID 05/19/24 05/20/24 History insulin lispro 100 unit/mL 1 sliding scale dose subcut TID 05/19/24 05/20/24 History subcutaneous pen (Humalog KwikPen (U-100) Insulin) nystatin 100,000 unit/mL oral 5 ml PO QID 05/19/24 05/19/24 History suspension triamcinolone acetonide 0.1 % 1 applic topical BID PRN rash 05/19/24 05/20/24 History topical cream ketoconazole 2 % topical cream 1 applic topical BID 05/20/24 05/20/24 History levothyroxine 150 mcg tablet 150 mcg PO .friday05/20/24 05/20/24 History Allergies Allergy/AdvReac Type Severity Reaction Status Date / Time black pepper Allergy Unknown Verified 11/18/23 11:20 diltiazem Allergy Unknown Verified 11/18/23 11:20 donepezil Allergy Unknown Verified 11/18/23 11:20 fluticasone Allergy Unknown Verified 11/18/23 11:20 metformin Allergy Unknown Verified 11/18/23 11:20 Vital Signs Vital Signs - 24 hr 05/19/24 15:38 05/19/24 15:54 05/19/24 16:00 Temperature Pulse Rate 87 94 Respiratory Rate 21 H 21 H Blood Pressure Pulse Oximetry 95 Oxygen Delivery Room Air 05/19/24 16:04 05/19/24 16:13 05/19/24 16:46 Temperature Pulse Rate 94 96 92 Respiratory Rate 25 H 22 H 19 Blood Pressure 143/52 H 143/52 H 128/57 L Pulse Oximetry 99 94 93 Oxygen Delivery 05/19/24 17:16 05/19/24 17:31 05/19/24 18:01 Temperature Pulse Rate 89 89 99 Respiratory Rate 24 H 22 H 19 Blood Pressure 110/63 133/58 L 175/78 H Pulse Oximetry 95 95 95 Oxygen Delivery 05/19/24 18:16 05/19/24 19:14 05/19/24 19:14 Temperature 99.5 F Pulse Rate 92 88 88 Respiratory Rate 18 22 H 20 Blood Pressure 152/56 H 132/62 132/62 Pulse Oximetry 96 95 96 Oxygen Delivery 05/19/24 19:58 05/19/24 20:42 05/19/24 20:48 Temperature Pulse Rate 88 86 85 Respiratory Rate 20 18 18 Blood Pressure Pulse Oximetry Oxygen Delivery 05/19/24 23:00 05/19/24 23:15 05/19/24 23:45 Temperature Pulse Rate 91 90 87 Respiratory Rate 19 17 16 Blood Pressure 138/59 L Pulse Oximetry 95 Oxygen Delivery 05/19/24 23:54 05/20/24 00:00 05/20/24 01:01 Temperature Pulse Rate 84 80 81 Respiratory Rate 20 21 H 20 Blood Pressure 138/57 L 143/56 H Pulse Oximetry 93 94 93 Oxygen Delivery 05/20/24 01:15 05/20/24 02:01 05/20/24 02:30 Temperature Pulse Rate 85 86 88 Respiratory Rate 20 20 19 Blood Pressure 144/58 H Pulse Oximetry 93 Oxygen Delivery 05/20/24 02:35 05/20/24 02:41 05/20/24 03:46 Temperature Pulse Rate 86 88 91 Respiratory Rate 18 18 15 Blood Pressure Pulse Oximetry Oxygen Delivery 05/20/24 04:30 05/20/24 05:07 05/20/24 05:15 Temperature Pulse Rate 84 78 76 Respiratory Rate 18 20 20 Blood Pressure Pulse Oximetry Oxygen Delivery 05/20/24 05:45 05/20/24 06:40 05/20/24 06:42 Temperature 99.5 F Pulse Rate 79 81 81 Respiratory Rate 20 22 H 22 H Blood Pressure 132/61 145/54 H Pulse Oximetry 94 91 91 Oxygen Delivery Room Air 05/20/24 06:47 05/20/24 07:54 05/20/24 08:27 Temperature 98.3 F Pulse Rate 72 76 81 Respiratory Rate 16 18 Blood Pressure 142/63 H Pulse Oximetry 97 Oxygen Delivery 05/20/24 08:28 05/20/24 09:00 05/20/24 09:54 Temperature Pulse Rate 74 76 77 Respiratory Rate Blood Pressure Pulse Oximetry 96 Oxygen Delivery Room Air 05/20/24 14:35 Temperature 97.8 F Pulse Rate 77 Respiratory Rate 18 Blood Pressure 130/51 L Pulse Oximetry 95 Oxygen Delivery Results Labs 05/20/24 06:08 05/20/24 06:08 Labs: Short CBC 05/19/24 05/20/24 Range/Units 14:48 06:08 WBC 43.4 H 29.9 H (4.5-10.0) K/mm3 Hgb 14.8 12.8 (12.0-15.0) g/dL Hct 44.2 39.2 (37.0-47.0) % Plt Count 254 210 (150-375) k/mm3 BMP 05/19/24 05/20/24 14:48 06:08 Sodium 131 L 136 L Potassium 3.8 3.1 L Chloride 104 111 H Carbon Dioxide 21 L 20 L BUN 15 10 D Creatinine 0.60 L 0.60 L Glucose 366 H 216 H Calcium 9.9 9.0 Liver Function 05/19/24 05/20/24 Range/Units 14:48 06:08 Total Bilirubin 0.8 0.8 (0.2-1.3) mg/dL AST 23 19 (14-36) U/L ALT 24 17 (6-35) U/L Alkaline Phosphatase 117 82 (38-126) U/L Albumin 3.6 3.0 L (3.5-5.1) g/dL Urine 05/19/24 Range/Units 14:48 Urine Color Yellow (Yellow) Urine Appearance Turbid H (Clear) Urine pH >=9.0 H (5.0-9.0) Ur Specific [place] 1.017 (1.001-1.035) Urine Protein 2+ H (Negative) mg/dL Urine Glucose (UA) 2+ H (Negative) mg/dL
[2024-05-20 16:47] LABS: Glucose Point of Care 224 mg/dl (65-105)
[2024-05-20] MEDS: MELATONIN 5 MG TABLET PO (20:29)
[2024-05-20] MEDS: ROSUVASTATIN 10 MG TABLET PO (20:29)
[2024-05-20] MEDS: ESCITALOPRAM OXALATE 10 MG TABLET PO (20:30)
[2024-05-20 20:34] LABS: Glucose Point of Care 207 mg/dl (65-105)
[2024-05-21] VITALS (12 sets, daily range): BP systolic 124–156; BP diastolic 45–74; PULSE 71–92; RESP 14–22; TEMP 36.7–36.8; O2SAT 90–97
[2024-05-21] MEDS: LEVOTHYROXINE SODIUM 75 MCG TABLET PO (05:26)
[2024-05-21 06:49] LABS: Basophils Absolute Auto 0.1 K/mm3 (0.0-0.1); Basophils Percent Auto 0.4 % (0.2-1.2); Eosinophils Absolute Auto 0.2 K/mm3 (0-0.3); Eosinophils Percent Auto 0.7 % (0-4.4); Hematocrit 38.1 % (37.0-47.0); Hemoglobin 12.6 g/dL (12.0-15.0); Immature Granulocyte Absolute 0.19 K/mm3 (0.00-0.031); Immature Granulocyte Percent A 0.9 % (0-0.5); Lymphocytes Absolute Auto 1.74 K/mm3 (0.9-3.2); Lymphocytes Percent Auto 7.9 % (18.3-44.2); Mean Corpuscular HGB Conc 33.1 g/dl (32-36); Mean Corpuscular Hemoglobin 28.6 pg (26-34); Mean Corpuscular Volume 86.6 fl (80-100); Mean Platelet Volume 11.2 fl (7.4-10.4); Monocytes Percent Auto 18.3 % (2.6-8.5); Neutrophils Absolute Auto 15.7 K/mm3 (1.3-6.7); Neutrophils Percent Auto 71.8 % (45.5-73.1); Platelet Count Result 197 k/mm3 (150-375); Red Cell Distribution Width 13.7 % (11.5-14.5); White Blood Count 21.9 K/mm3 (4.5-10.0)
[2024-05-21 07:09] LABS: Alanine Aminotransferase 15 U/L (6-35); Albumin Level 2.9 g/dL (3.5-5.1); Alkaline Phosphatase 89 U/L (38-126); Anion Gap 1 mmol/L (4-12); Aspartate Amino Transferase 15 U/L (14-36); Bilirubin,Total 0.7 mg/dL (0.2-1.3); Blood Urea Nitrogen 6 mg/dL (7-17); Calcium 9.5 mg/dL (8.4-10.2); Carbon Dioxide 21 mmol/L (22-30); Chloride 112 mmol/L (98-107); Estimated CRCL calculation 76 ml/min; Estimated Glomerular Filt Rate > 60; Glucose 177 mg/dL (65-110); Magnesium 1.9 mg/dL (1.6-2.3); Potassium 3.7 mmol/L (3.4-5.0); Sodium 134 mmol/L (137-145)
[2024-05-21 07:52] LABS: Glucose Point of Care 178 mg/dl (65-105)
[2024-05-21] MEDS: IPRATROPIUM 0.5 MG/ALBUTEROL SULFATE 2.5 MG AMPUL.NEB 3 ML NEBULIZE ×3 (08:52→20:46)
[2024-05-21] MEDS: DORZOLAMIDE HCL 2% OPHTH DROPS 2 DROP EACH EYE ×3 (10:01→21:22)
[2024-05-21] MEDS: SACCHAROMYCES BOULARDII 250 MG CAPSULE PO ×2 (10:02→17:35)
[2024-05-21] MEDS: PANTOPRAZOLE 40 MG TABLET PO (10:02)
[2024-05-21] MEDS: APIXABAN 5 MG TABLET PO ×2 (10:02→21:01)
[2024-05-21] MEDS: FLECAINIDE ACETATE 50 MG TABLET PO ×2 (10:02→21:00)
[2024-05-21] MEDS: ACETAMINOPHEN 325 MG TABLET 650 MG PO (10:05)
--- NOTE | 2024-05-21 10:23 | P.PNIM_ITS ---
Progress Note: A&P Assessment and Plan (1) Sepsis: Code(s): A41.9 - Sepsis, unspecified organism Status: Acute Assessment and Plan: patient presented with elevated white count, tachypnea, lactic acidosis with possible UTI and pneumonia * IV fluid resuscitation. 30mg/kg No septic shock * IV meropenem based on previous urine culture resistant Klebsiella pneumoniae * Monitor lactic acid levels q6hr. Trending down after IV fluids * Repeat CBC, CMP. * Two sets of blood cultures pending * urine cultures pending * Chest x-ray Possible Pneumonia could not be ruled out * Monitor albumin, monitoring of mental status. (2) UTI (urinary tract infection): Qualifiers: Hematuria presence: with hematuria Urinary tract infection type: acute cystitis Qualified Code(s): N30.01 - Acute cystitis with hematuria Code(s): N39.0 - Urinary tract infection, site not specified Status: Acute Assessment and Plan: patient with history of suprapubic catheter was changed out in the emergency department by Urology daughter had reported hematuria prior to arrival urine is suspicious for UTI patient has had previous urine culture resistant Klebsiella pneumoniae * urology was consulted from the emergency department sign off on this time after successful exchange of suprapubic catheter. * Urine cultures * blood cultures pending * Continue IV hydration. * IV meropenem * Start probiotics to prevent antibiotic induced diarrhea * Monitor for obstructive uropathy and pyelonephritis (3) Pneumonia: Code(s): J18.9 - Pneumonia, unspecified organism Status: Acute Assessment and Plan: patient with shortness of breath and productive cough chest x-ray could not rule out pneumonia possible viral versus bacterial * currently on IV meropenem * DuoNebs * mucolytics * incentive spirometer * chronically elevated leukocytosis however has trended down to 21.6 was 43.4 on admission * oxygen p.r.n. (4) Leukocytosis: Code(s): D72.829 - Elevated white blood cell count, unspecified Status: Acute Assessment and Plan: patient does have history chronic elevated white count initial white count was 4 3.4, was to follow with Hematology outpatient. 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 HS * sliding scale insulin * hold oral diabetic medications * resume patient's home long-acting * Diabetic diet * Optimize Mckay inhibitors and statins. * Watch for hypoglycemia/hypoglycemic protocol ordered (8) Hypothyroidism: Code(s): E03.9 - Hypothyroidism, unspecified Status: Acute Assessment and Plan: * resume levothyroxine Plan Code status: Full code per patient DVT prophylaxis: Eliquis Stress ulcer prophylaxis: Protonix 40 daily PT/OT notes: bed-bound Disposition: patient continues admission to the medical unit for sepsis without septic shock secondary to urinary tract infection and possible pneumonia. [facility] and will return when medically stable. Time Spent With Patient Time with patient: 15 - 25 minutes Subjective Date/time seen: 05/21/24 10:23 Interval history: patient is an 83-year-old female who was admitted for further evaluation and treatment of sepsis without septic shock secondary to UTI and Pneumonia. 05/21/2024: Assumed Care Patient report SOB and productive cough and overall not feeling well. Daughter at bedside report hematuria from patient superpubic catheter prior to arrival. Patient denied any CP or ABD pain but did endorse chills overnight. Review of Systems Review of Systems: All systems reviewed & are unremarkable except as noted in HPI and below Exam Narrative: * GENERAL: Alert and oriented x 3, Pleasant Chronically ill-looking hard of hearing female. No acute distress. * EYES: EOMI. No scleral icterus. PERRLA. * HEENT: Moist mucous membranes. * LUNGS: Rhonchi to auscultation bilaterally, BLL diminished. No accessory muscle use but productive cough * CARDIOVASCULAR: Regular rate and rhythm. No murmur. No JVD. S1-S2 * ABDOMEN: Soft, non tenderness and non-distended. No palpable masses. * EXTREMITIES: No edema. Non-tender, Bed Bound * SKIN: No rashes or lesions. Skin warm, dry. * NEUROLOGIC: No focal neurological deficits. CN II-XII grossly intact * PSYCHIATRIC: Appropriate mood and affect. Good judgement and insight. Objective Data Vital Signs Vital Signs: Vital Signs - 24 hr 05/20/24 14:35 05/20/24 20:00 05/20/24 20:23 Temperature 97.8 F 99.0 F Pulse Rate 77 88 Respiratory Rate 18 24 H Blood Pressure 130/51 L 148/89 H Pulse Oximetry 95 91 Oxygen Delivery Room Air 05/20/24 20:29 05/20/24 22:00 05/20/24 22:09 Temperature Pulse Rate 90 85 85 Respiratory Rate 18 Blood Pressure Pulse Oximetry 92 Oxygen Delivery Room Air 05/20/24 22:09 05/21/24 05:25 05/21/24 08:55 Temperature 98.3 F Pulse Rate 83 72 Respiratory Rate 18 22 H Blood Pressure 124/45 L Pulse Oximetry 94 96 Oxygen Delivery Room Air 05/21/24 08:55 Temperature Pulse Rate 88 Respiratory Rate 18 Blood Pressure Pulse Oximetry Oxygen Delivery Intake/Output Intake/Output: Intake & Output 05/18/24 05/19/24 05/20/24 05/21/24 23:59 23:59 23:59 23:59 Intake Total 2800 4340.4 Output Total 850 650 Balance 2800 3490.4 -650 Meds/Results Medications: Active Medications Generic Name Dose Route Start Last Admin Trade Name Freq PRN Reason Stop Dose Admin Acetaminophen 1,000 mg 05/20/24 01:21 Acetaminophen 500 Mg Tablet PO Q6H PRN PAIN 1-3 Hydrocodone Bitart/Acetaminophen 1 tab 05/19/24 16:32 Hydrocodone/Acetaminophen (*Crx) 5-325 Mg Tablet PO Q4H PRN Pain Rated 4-6 Albuterol 2 puff 05/20/24 01:21 Albuterol Sulfate (*Sp) Aerosol 1 Puff INHALATION PRN PRN wheezing Albuterol/Ipratropium 3 ml 05/19/24 20:00 05/21/24 08:52 Ipratropium 0.5 Mg/Albuterol Sulfate 2.5 Mg Ampul.Neb 3 Ml NEBULIZE 3 ml Q6HRT KATHARINE Administration Apixaban 5 mg 05/20/24 09:00 05/21/24 10:02 Apixaban 5 Mg Tablet PO 5 mg Q12HR KATHARINE Administration Calcium Carbonate 200 mg 05/20/24 01:47 Calcium Carbonate (Tums) 500 Mg (200 Mg Elemental) BY MOUTH BID PRN Indigestion Dextrose 12.5 gm 05/20/24 01:25 Dextrose 50% 25 Gm/50 Ml Syringe IV PUSH PRN PRN Hypoglycemia Protocol Dorzolamide HCl 2 drop 05/20/24 09:00 05/21/24 10:01 Dorzolamide Hcl 2% Ophth Drops EACH EYE 2 drop 0900,1200,2100 KATHARINE Administration Escitalopram Oxalate 10 mg 05/20/24 21:00 05/20/24 20:30 Escitalopram Oxalate 10 Mg Tablet PO 10 mg QHS KATHARINE Administration Ferrous Sulfate 325 mg 05/20/24 12:00 05/20/24 16:29 Ferrous Sulfate [address] BY MOUTH 325 mg 1200,1700 KATHARINE Administration Flecainide Acetate 50 mg 05/20/24 09:00 05/21/24 10:02 Flecainide Acetate 50 Mg Tablet PO 50 mg Q12HR KATHARINE Administration Glucagon 1 mg 05/20/24 01:25 Glucagon For Inj 1 Mg Vial IM PRN PRN Hypoglycemia Protocol Glucose 15 gm 05/20/24 01:25 Glucose Oral Gel 15 Gm Of Glucse In 37.5 Gm Tube PO PRN PRN Hypoglycemia Protocol Hyoscyamine 0.125 mg 05/20/24 01:21 Hyoscyamine Sulfate 0.125 Mg Tablet PO BID PRN cramping Azithromycin 500 mg in 250 mls @ 250 mls/hr 05/20/24 14:00 05/20/24 16:10 Zithromax IVPB Infused Q24H KATHARINE Infusion Sodium Chloride 1,000 mls @ 75 mls/hr 05/19/24 16:35 05/20/24 20:33 Normal Saline Iv IV CONT 75 mls/hr .[id number] KATHARINE Administration Dextrose 1,000 mls @ 100 mls/hr 05/20/24 01:25 Dextrose 5% 1,000 Ml IVPB PRN PRN Hypoglycemia Protocol Meropenem 1 gm in 100 mls @ 200 mls/hr 05/21/24 11:00 IVPB Q8H KATHARINE Insulin Aspart 3 - 6 units 05/20/24 08:00 05/21/24 08:27 Insulin Aspart (*Bkc) 100 Units/Ml SUB-Q Not Given TIDWM [facility] Protocol Insulin Glargine 25 units 05/20/24 01:30 05/20/24 20:32 Insulin Glargine (*Bkc) 100 Units/Ml SUB-Q 25 units HS KATHARINE Administration Insulin Glargine 22 units 05/21/24 18:00 Insulin Glargine (*Bkc) 100 Units/Ml SUB-Q QPM [facility] Levothyroxine Sodium 75 mcg 05/20/24 06:30 05/21/24 05:26 Levothyroxine Sodium 75 Mcg Tablet PO 75 mcg [id number] [facility] Administration Levothyroxine Sodium 150 mcg 05/23/24 06:30 Levothyroxine Sodium 150 Mcg Tablet PO [id number]@0630 [facility] Levothyroxine Sodium 150 mcg 05/21/24 10:15 Levothyroxine Sodium 150 Mcg Tablet PO .friday [facility] Melatonin 5 mg 05/20/24 21:00 05/20/24 20:29 Melatonin 5 Mg Tablet PO 5 mg HS KATHARINE Administration Nitroglycerin 0.4 mg 05/20/24 01:21 Nitroglycerin Sl 0.4 Mg Tablet SUBLINGUAL PRN PRN Chest Pain Non-Formulary Medication 1 applic 05/21/24 17:00 Ketoconazole TOPICAL 06/20/24 16:59 BID KATHARINE Nystatin 5 ml 05/20/24 09:00 05/21/24 10:03 Nystatin 100,000 Units/Ml Susp 5 Ml Oral.Susp PO Not Given QID [facility] Ondansetron HCl 4 mg 05/21/24 10:18 Ondansetron Inj 4 Mg/2 Ml Vial IV PUSH Q6H PRN Nausea And Vomiting Pantoprazole Sodium 40 mg 05/20/24 09:00 05/21/24 10:02 Pantoprazole 40 Mg Tablet PO 40 mg DAILY KATHARINE Administration Rosuvastatin Calcium 10 mg 05/20/24 21:00 05/20/24 20:29 Rosuvastatin 10 Mg Tablet PO 10 mg HS KATHARINE Administration Saccharomyces Boulardii 250 mg 05/20/24 09:00 05/21/24 10:02 Saccharomyces Boulardii 250 Mg Capsule PO 250 mg BID KATHARINE Administration Radiology Results: ITS Impressions Chest X-Ray 05/19/24 15:03 IMPRESSION: Segmental lower lobe atelectasis/consolidation, possibly in the right lower lobe. Labs Labs: Laboratory Results - last 24 hr 05/20/24 05/20/24 05/20/24 12:02 16:44 20:25 WBC RBC Hgb Hct MCV MCH MCHC RDW Plt Count MPV Immature Gran % (Auto) Neut % (Auto) Lymph % (Auto) Tripp % (Auto) Eos % (Auto) Baso % (Auto) Lymph # (Auto) Tripp # (Auto) Eos # (Auto) Baso # (Auto) Abs Immat Gran (auto) Absolute Neuts (auto) Absolute Nucleated RBC Nucleated RBC % Sodium Potassium Chloride Carbon Dioxide Anion Gap BUN Creatinine Estim Creat Clear Calc Estimated GFR Glucose POC Capillary Glucose 219 H 224 H 207 H Calcium Magnesium Total Bilirubin AST ALT Alkaline Phosphatase Total Protein Albumin 05/21/24 05/21/24 06:33 07:47 WBC 21.9 H RBC 4.40 Hgb 12.6 Hct 38.1 MCV 86.6 MCH 28.6 MCHC 33.1 RDW 13.7 Plt Count 197 MPV 11.2 H Immature Gran % (Auto) 0.9 H Neut % (Auto) 71.8 Lymph % (Auto) 7.9 L Tripp % (Auto) 18.3 H Eos % (Auto) 0.7 Baso % (Auto) 0.4 Lymph # (Auto) 1.74 Tripp # (Auto) 4.0 H Eos # (Auto) 0.2 Baso # (Auto) 0.1 Abs Immat Gran (auto) 0.19 H Absolute Neuts (auto) 15.7 H Absolute Nucleated RBC 0.000 Nucleated RBC % 0.0 Sodium 134 L Potassium 3.7 Chloride 112 H Carbon Dioxide 21 L Anion Gap 1 L BUN 6 L Creatinine 0.50 L Estim Creat Clear Calc 76 Estimated GFR > 60 Glucose 177 H POC Capillary Glucose 178 H Calcium 9.5 Magnesium 1.9 Total Bilirubin 0.7 AST 15 ALT 15 Alkaline Phosphatase 89 Total Protein 6.0 L Albumin 2.9 L Quality VTE Prophylaxis VTE prophylaxis: pharmacologic ordered -Patient's previous records reviewed on admission -ER notes reviewed in detail on admission -discussed all findings and current treatment plan with patient/Family/POA -Consultations reviewed for recommendations -Patient's disposition for safe discharge discussed with counseling case manager Dictation performed by [employer] direct speech recognition software, therefore pallet stone inserter variants and typographical errors may occur. Hospitalist MIPS Advance Care Plan I have confirmed that the patient's Advanced Care Plan is present, code status is documented, or surrogate decision maker is listed in patient medical record.: Yes Medication Reconciliation I have utilized all available resources to obtain, update and review the patients current medications (includes all prescriptions, OTC, herbals, cannabis, and nutritional supplements).: Yes The patient is not eligible for med reconciliation; the patient is in a emergent medical situation where delaying treatment would jeopardize the patients health.: No
[2024-05-21 11:38] LABS: Glucose Point of Care 227 mg/dl (65-105)
[2024-05-21] MEDS: FERROUS SULFATE 325 MG TABLET DR BY MOUTH ×2 (12:05→17:35)
[2024-05-21] MEDS: MEROPENEM 1 GM/NS 100 ML 1 GM/100 ML BAG IVPB ×2 (12:05→21:21)
[2024-05-21] MEDS: INSULIN ASPART (*BKC) 100 UNITS/ML SUB-Q ×2 (12:06→17:43)
[2024-05-21] MEDS: AZITHROMYCIN 500 MG/NS 250 ML 500 MG/250 ML BAG 250 MG IVPB (15:33)
[2024-05-21] MEDS: SODIUM CHLORIDE 0.9% IV 1,000 ML 75 ML IV CONT (15:33)
[2024-05-21] MEDS: ALBUTEROL SULFATE (*SP) AEROSOL 1 PUFF 2 PUFF INHALATION (16:43)
[2024-05-21 17:13] LABS: Glucose Point of Care 249 mg/dl (65-105)
[2024-05-21] MEDS: ONDANSETRON INJ 4 MG/2 ML VIAL IV PUSH (17:35)
[2024-05-21] MEDS: INSULIN GLARGINE (*BKC) 100 UNITS/ML 22 UNITS SUB-Q (17:44)
[2024-05-21] MEDS: FUROSEMIDE INJ 40 MG/4 ML VIAL IV PUSH (17:57)
[2024-05-21 18:14] LABS: Alveolar/Arterial O2 Gradient 91.5 mmHg; Base Excess ABG -4.2 mEq/l (+/-2.0); Fractional Inspired Oxygen 28 %; HCO3 ABG 19.9 mEq/l (22.0-26.0); Oxygen Content ABG 18.5 %vol (16.0-22.0); Oxygen Saturation ABG 93.8 % (95.0-100.0); Oxyhemoglobin 93.4 % THb (90.0-100.0); PCO2 ABG 33.5 mmHg (35.0-45.0); PO2 ABG 68.6 mmHg (80.0-100.0); PO2 FiO2 Ratio Arterial Blood 2.45 %; Total Hemoglobin 14.1 g/dL (12.0-18.0); pH ABG 7.391 (7.350-7.450)
--- NOTE | 2024-05-21 18:18 | P.PNCROSS_ITS ---
Event Note Event Note Event Note: Nurse called upon breathing concern. Upon evaluation I felt patient is congest ed. Ordered Lasix 40 mg IV x 1 . Stop the fluids. Ordered chest x-ray and ABG. Patient is currently saturating around 93% on 2 L NC
[2024-05-21 20:43] LABS: Glucose Point of Care 273 mg/dl (65-105)
[2024-05-21] MEDS: ESCITALOPRAM OXALATE 10 MG TABLET PO (21:01)
[2024-05-21] MEDS: ROSUVASTATIN 10 MG TABLET PO (21:01)
[2024-05-21] MEDS: MELATONIN 5 MG TABLET PO (21:01)
[2024-05-21] MEDS: guaiFENesin 12 HR 600 MG TABCR 1200 MG PO (21:01)
[2024-05-21] MEDS: LORATADINE 10 MG TABLET PO (21:01)
[2024-05-21] MEDS: NYSTATIN 100,000 UNITS/ML SUSP 5 ML ORAL.SUSP PO (21:05)
[2024-05-21] MEDS: INSULIN GLARGINE (*BKC) 100 UNITS/ML 25 UNITS SUB-Q (21:23)
[2024-05-22] VITALS (13 sets, daily range): BP systolic 119–142; BP diastolic 46–93; PULSE 74–96; RESP 16–24; TEMP 36.4–36.6; O2SAT 91–94
[2024-05-22] MEDS: MEROPENEM 1 GM/NS 100 ML 1 GM/100 ML BAG IVPB ×3 (03:01→21:09)
[2024-05-22] MEDS: IPRATROPIUM 0.5 MG/ALBUTEROL SULFATE 2.5 MG AMPUL.NEB 3 ML NEBULIZE ×4 (03:59→21:25)
[2024-05-22] MEDS: LEVOTHYROXINE SODIUM 75 MCG TABLET PO (05:39)
[2024-05-22 07:44] LABS: Glucose Point of Care 164 mg/dl (65-105)
[2024-05-22 07:56] LABS: Hematocrit 38.2 % (37.0-47.0); Hemoglobin 12.3 g/dL (12.0-15.0); Mean Corpuscular HGB Conc 32.2 g/dl (32-36); Mean Platelet Volume 11.8 fl (7.4-10.4); Platelet Count Result 217 k/mm3 (150-375); Red Blood Count 4.39 M/mm3 (4.2-5.4); Red Cell Distribution Width 13.5 % (11.5-14.5); White Blood Count 18.8 K/mm3 (4.5-10.0)
[2024-05-22 08:01] LABS: Alanine Aminotransferase 27 U/L (6-35); Albumin Level 2.9 g/dL (3.5-5.1); Alkaline Phosphatase 110 U/L (38-126); Anion Gap 3 mmol/L (4-12); Aspartate Amino Transferase 35 U/L (14-36); Bilirubin,Total 0.9 mg/dL (0.2-1.3); Blood Urea Nitrogen 7 mg/dL (7-17); Calcium 9.3 mg/dL (8.4-10.2); Carbon Dioxide 22 mmol/L (22-30); Chloride 108 mmol/L (98-107); Estimated CRCL calculation 64 ml/min; Estimated Glomerular Filt Rate > 60; Glucose 171 mg/dL (65-110); Potassium 3.2 mmol/L (3.4-5.0); Sodium 133 mmol/L (137-145)
[2024-05-22 08:41] LABS: Band Neutrophils Percent 1 % (0-6); Lymphocytes Absolute Manual 0.75 K/mm3 (1.1-4.5); Lymphocytes Percent Manual 4 % (18-44); Monocytes Absolute Manual 1.12 K/mm3 (0.1-0.90); Monocytes Percent Manual 6 % (3-9); Neutrophils Absolute Manual 16.92 K/mm3 (1.7-7.2); Neutrophils Percent Manual 89 % (46-73); Platelet Estimate Adequate (Adequate); Schistocytes None Seen; Total Cells Counted 100
[2024-05-22] MEDS: NYSTATIN 100,000 UNITS/ML SUSP 5 ML ORAL.SUSP PO ×4 (09:13→21:09)
[2024-05-22] MEDS: APIXABAN 5 MG TABLET PO ×2 (09:13→21:08)
[2024-05-22] MEDS: SACCHAROMYCES BOULARDII 250 MG CAPSULE PO ×2 (09:13→18:21)
[2024-05-22] MEDS: PANTOPRAZOLE 40 MG TABLET PO (09:13)
[2024-05-22] MEDS: guaiFENesin 12 HR 600 MG TABCR 1200 MG PO ×2 (09:13→21:08)
[2024-05-22] MEDS: FLECAINIDE ACETATE 50 MG TABLET PO ×2 (09:14→21:07)
[2024-05-22 10:16] LABS: Device NASAL CANNULA; Modified Allen's Test Pass; Site Drawn RIGHT RADIAL
[2024-05-22] MEDS: DORZOLAMIDE HCL 2% OPHTH DROPS 2 DROP EACH EYE ×3 (10:23→21:08)
--- NOTE | 2024-05-22 11:26 | P.PNIM_ITS ---
Progress Note: A&P Assessment and Plan (1) UTI (urinary tract infection): Qualifiers: Hematuria presence: with hematuria Urinary tract infection type: acute cystitis Qualified Code(s): N30.01 - Acute cystitis with hematuria Code(s): N39.0 - Urinary tract infection, site not specified Status: Acute Assessment and Plan: patient with history of suprapubic catheter was changed out in the emergency department by Urology daughter had reported hematuria prior to arrival urine is suspicious for UTI patient has had previous urine culture resistant Klebsiella pneumoniae * urology was consulted from the emergency department sign off on this time after successful exchange of suprapubic catheter. * Urine cultures * blood cultures pending * Continue IV hydration. * IV meropenem * Start probiotics to prevent antibiotic induced diarrhea * Monitor for obstructive uropathy and pyelonephritis 05/22/2024 * Urine culture with Proteus mirabilis * oral resistant will continue with IV meropenem (2) Pneumonia: Code(s): J18.9 - Pneumonia, unspecified organism Status: Acute Assessment and Plan: patient with shortness of breath and productive cough chest x-ray could not rule out pneumonia possible viral versus bacterial * currently on IV meropenem * DuoNebs * mucolytics * incentive spirometer * chronically elevated leukocytosis however has trended down to 21.6 was 43.4 on admission * oxygen p.r.n. 05/22/2024 * added PEEP there * suction p.r.n. * blood cultures no growth today (3) Leukocytosis: Code(s): D72.829 - Elevated white blood cell count, unspecified Status: Acute Assessment and Plan: patient does have history chronic elevated white count initial white count was 4 3.4, was to follow with Hematology outpatient. * could also be secondary to patient's UTI and possible pneumonia * continue to trend down to 21.6 today Improving (4) Hypertension: Code(s): I10 - Essential (primary) hypertension Status: Acute Assessment and Plan: * Stable reviewed (5) Atrial fibrillation: Qualifiers: Atrial fibrillation type: paroxysmal Qualified Code(s): I48.0 - Paroxysmal atrial fibrillation Code(s): I48.91 - Unspecified atrial fibrillation Status: Acute Assessment and Plan: * resume patient's Eliquis * rate controlled (6) Type 2 diabetes mellitus: Qualifiers: Diabetes mellitus complication status: without complication Diabetes idalia luz exterminator helper insulin use: with senior living use Qualified Code(s): E11.9 - Type 2 diabetes mellitus without complications; Z79.4 - exterminator helper termite (current) use of insulin Code(s): E11.9 - Type 2 diabetes mellitus without complications Status: Acute Assessment and Plan: * Accu-Cheks a.cTyrone HS * sliding scale insulin * hold oral diabetic medications * resume patient's home long-acting * Diabetic diet * Optimize Mckay inhibitors and statins. * Watch for hypoglycemia/hypoglycemic protocol ordered (7) Hypothyroidism: Code(s): E03.9 - Hypothyroidism, unspecified Status: Acute Assessment and Plan: * resume levothyroxine (8) Sepsis: Code(s): A41.9 - Sepsis, unspecified organism Status: Acute Assessment and Plan: patient presented with elevated white count, tachypnea, lactic acidosis with possible UTI and pneumonia * IV fluid resuscitation. 30mg/kg No septic shock * IV meropenem based on previous urine culture resistant Klebsiella pneumoniae * Monitor lactic acid levels q6hr. Trending down after IV fluids * Repeat CBC, CMP. * Two sets of blood cultures pending * urine cultures pending * Chest x-ray Possible Pneumonia could not be ruled out * Monitor albumin, monitoring of mental status. RESOLVED Plan Code status: Full code per patient DVT prophylaxis: Eliquis Stress ulcer prophylaxis: Protonix 40 daily PT/OT notes: bed-bound Disposition: patient continues admission to the medical unit for sepsis without septic shock secondary to urinary tract infection and possible pneumonia. patient is from a care home facility and will return when medically stable. currently on IV meropenem for oral resistant UTI will need 5 days IV meropenem Time Spent With Patient Time with patient: 15 - 25 minutes Subjective Date/time seen: 05/22/24 11:26 Interval history: patient is an 83-year-old female who was admitted for further evaluation and treatment of sepsis without septic shock secondary to UTI and Pneumonia. 05/22/2024: Patient reporting SOB with productive cough having difficulty clearing her mucous. Denies CP, N/V, fever, chills or ABD pain. Review of Systems Review of Systems: All systems reviewed & are unremarkable except as noted in HPI and below Exam Narrative: * GENERAL: Alert and oriented x 3, Pleasant Chronically ill-looking hard of hearing female. No acute distress. * EYES: EOMI. No scleral icterus. PERRLA. * HEENT: Moist mucous membranes. * LUNGS: Rhonchi to auscultation bilaterally, BLL diminished. No accessory muscle use but productive cough * CARDIOVASCULAR: Regular rate and rhythm. No murmur. No JVD. S1-S2 * ABDOMEN: Soft, non tenderness and non-distended. No palpable masses. * EXTREMITIES: No edema. Non-tender, Bed Bound * SKIN: No rashes or lesions. Skin warm, dry. * NEUROLOGIC: No focal neurological deficits. CN II-XII grossly intact * PSYCHIATRIC: Appropriate mood and affect. Good judgement and insight. Objective Data Vital Signs Vital Signs: Vital Signs - 24 hr 05/21/24 13:46 05/21/24 13:52 05/21/24 14:00 Temperature 98.1 F Pulse Rate 71 73 82 Respiratory Rate 20 20 18 Blood Pressure 140/55 L Pulse Oximetry 92 Oxygen Delivery Oxygen Flow Rate Fraction of Inspired Oxygen 05/21/24 16:46 05/21/24 17:40 05/21/24 17:45 Temperature Pulse Rate 92 Respiratory Rate 22 H Blood Pressure Pulse Oximetry 90 94 Oxygen Delivery Room Air Nasal Cannula Oxygen Flow Rate 2 Fraction of Inspired Oxygen 05/21/24 20:00 05/21/24 20:33 05/21/24 20:47 Temperature 98.1 F Pulse Rate 86 83 86 Respiratory Rate 20 14 20 Blood Pressure 156/74 H Pulse Oximetry 96 97 Oxygen Delivery Nasal Cannula Oxygen Flow Rate 2 Fraction of Inspired Oxygen 05/21/24 20:48 05/22/24 06:00 05/22/24 07:48 Temperature 97.5 F L Pulse Rate 74 Respiratory Rate 18 Blood Pressure 137/49 L Pulse Oximetry 96 93 94 Oxygen Delivery Nasal Cannula Nasal Cannula Oxygen Flow Rate 2 2 Fraction of Inspired Oxygen 28 05/22/24 07:48 05/22/24 08:04 05/22/24 09:14 Temperature Pulse Rate 78 85 85 Respiratory Rate 20 20 Blood Pressure Pulse Oximetry Oxygen Delivery Oxygen Flow Rate Fraction of Inspired Oxygen Intake/Output Intake/Output: Intake & Output 05/19/24 05/20/24 05/21/24 05/22/24 23:59 23:59 23:59 23:59 Intake Total 2800 4340.4 2050 558 Output Total 850 1900 1100 Balance 2800 3490.4 150 -542 Meds/Results Medications: Active Medications Generic Name Dose Route Start Last Admin Trade Name Freq PRN Reason Stop Dose Admin Acetaminophen 1,000 mg 05/20/24 01:21 Acetaminophen 500 Mg Tablet PO Q6H PRN PAIN 1-3 Hydrocodone Bitart/Acetaminophen 1 tab 05/19/24 16:32 Hydrocodone/Acetaminophen (*Crx) 5-325 Mg Tablet PO Q4H PRN Pain Rated 4-6 Albuterol 2 puff 05/20/24 01:21 05/21/24 16:43 Albuterol Sulfate (*Sp) Aerosol 1 Puff INHALATION 2 puff PRN PRN Administration wheezing Albuterol/Ipratropium 3 ml 05/19/24 20:00 05/22/24 07:48 Ipratropium 0.5 Mg/Albuterol Sulfate 2.5 Mg Ampul.Neb 3 Ml NEBULIZE 3 ml Q6HRT KATHARINE Administration Apixaban 5 mg 05/20/24 09:00 05/22/24 09:13 Apixaban 5 Mg Tablet PO 5 mg Q12HR KATHARINE Administration Calcium Carbonate 200 mg 05/20/24 01:47 Calcium Carbonate (Tums) 500 Mg (200 Mg Elemental) BY MOUTH BID PRN Indigestion Dextrose 12.5 gm 05/20/24 01:25 Dextrose 50% 25 Gm/50 Ml Syringe IV PUSH PRN PRN Hypoglycemia Protocol Dorzolamide HCl 2 drop 05/20/24 09:00 05/22/24 10:23 Dorzolamide Hcl 2% Ophth Drops EACH EYE 2 drop 0900,1200,2100 KATHARINE Administration Escitalopram Oxalate 10 mg 05/20/24 21:00 05/21/24 21:01 Escitalopram Oxalate 10 Mg Tablet PO 10 mg QHS KATHARINE Administration Ferrous Sulfate 325 mg 05/20/24 12:00 05/21/24 17:35 Ferrous Sulfate [address] BY MOUTH 325 mg 1200,1700 KATHARINE Administration Flecainide Acetate 50 mg 05/20/24 09:00 05/22/24 09:14 Flecainide Acetate 50 Mg Tablet PO 50 mg Q12HR KATHARINE Administration Glucagon 1 mg 05/20/24 01:25 Glucagon For Inj 1 Mg Vial IM PRN PRN Hypoglycemia Protocol Glucose 15 gm 05/20/24 01:25 Glucose Oral Gel 15 Gm Of Glucse In 37.5 Gm Tube PO PRN PRN Hypoglycemia Protocol Guaifenesin 1,200 mg 05/21/24 21:00 05/22/24 09:13 Guaifenesin 12 Hr 600 Mg Tabcr PO 1,200 mg Q12HR KATHARINE Administration Hyoscyamine 0.125 mg 05/20/24 01:21 Hyoscyamine Sulfate 0.125 Mg Tablet PO BID PRN cramping Azithromycin 500 mg in 250 mls @ 250 mls/hr 05/20/24 14:00 05/21/24 16:33 Zithromax IVPB Infused Q24H KATHARINE Infusion Dextrose 1,000 mls @ 100 mls/hr 05/20/24 01:25 Dextrose 5% 1,000 Ml IVPB PRN PRN Hypoglycemia Protocol Meropenem 1 gm in 100 mls @ 200 mls/hr 05/21/24 11:00 05/22/24 03:30 IVPB Infused Q8H [facility] Infusion Insulin Aspart 3 - 6 units 05/20/24 08:00 05/22/24 09:15 Insulin Aspart (*Bkc) 100 Units/Ml SUB-Q Not Given TIDWM [facility] Protocol Insulin Glargine 25 units 05/20/24 01:30 05/21/24 21:23 Insulin Glargine (*Bkc) 100 Units/Ml SUB-Q 25 units HS KATHARINE Administration Insulin Glargine 22 units 05/21/24 18:00 05/21/24 17:44 Insulin Glargine (*Bkc) 100 Units/Ml SUB-Q 22 units QPM KATHARINE Administration Levothyroxine Sodium 75 mcg 05/20/24 06:30 05/22/24 05:39 Levothyroxine Sodium 75 Mcg Tablet PO 75 mcg [id number] KATHARINE Administration Levothyroxine Sodium 150 mcg 05/23/24 06:30 Levothyroxine Sodium 150 Mcg Tablet PO [id number]@0630 KATHARINE Loratadine 10 mg 05/21/24 21:00 05/21/24 21:01 Loratadine 10 Mg Tablet PO 10 mg QHS KATHARINE Administration Melatonin 5 mg 05/20/24 21:00 05/21/24 21:01 Melatonin 5 Mg Tablet PO 5 mg HS KATHARINE Administration Miscellaneous Information 0 each 05/21/24 00:01 Ketoconazole Cream - What Is The Application Site? XX 06/20/24 00:00 CLARIFY KATHARINE Nitroglycerin 0.4 mg 05/20/24 01:21 Nitroglycerin Sl 0.4 Mg Tablet SUBLINGUAL PRN PRN Chest Pain Non-Formulary Medication 1 applic 05/21/24 17:00 Ketoconazole TOPICAL 06/20/24 16:59 BID KATHARINE Nystatin 5 ml 05/20/24 09:00 05/22/24 09:13 Nystatin 100,000 Units/Ml Susp 5 Ml Oral.Susp PO 5 ml QID KATHARINE Administration Ondansetron HCl 4 mg 05/21/24 10:18 05/21/24 17:35 Ondansetron Inj 4 Mg/2 Ml Vial IV PUSH 4 mg Q6H PRN Administration Nausea And Vomiting Pantoprazole Sodium 40 mg 05/20/24 09:00 05/22/24 09:13 Pantoprazole 40 Mg Tablet PO 40 mg DAILY KATHARINE Administration Rosuvastatin Calcium 10 mg 05/20/24 21:00 05/21/24 21:01 Rosuvastatin 10 Mg Tablet PO 10 mg HS KATHARINE Administration Saccharomyces Boulardii 250 mg 05/20/24 09:00 05/22/24 09:13 Saccharomyces Boulardii 250 Mg Capsule PO 250 mg BID KATHARINE Administration Radiology Results: ITS Impressions Chest X-Ray 05/21/24 17:58 IMPRESSION: Bilateral pneumonia. Underlying pulmonary edema is not excluded Labs Labs: Laboratory Results - last 24 hr 05/21/24 05/21/24 05/21/24 11:30 16:42 18:03 WBC RBC Hgb Hct MCV MCH MCHC RDW Plt Count MPV Immature Gran % (Auto) Neut % (Auto) Lymph % (Auto) [place] % (Auto) Eos % (Auto) Baso % (Auto) Lymph # (Auto) [place] # (Auto) Eos # (Auto) Baso # (Auto) Abs Immat Gran (auto) Absolute Neuts (auto) Absolute Nucleated RBC Total Counted Neutrophils % (Manual) Band Neutrophils % Lymphocytes % (Manual) Monocytes % (Manual) Nucleated RBC % Abs Neuts (Manual) Abs Lymphs (Manual) Abs Monocytes (Manual) Platelet Estimate Schistocytes Puncture Site Right radial ABG pH 7.391 ABG pCO2 33.5 L ABG pO2 68.6 L ABG PO2/FiO2 Ratio 2.45 ABG HCO3 19.9 L ABG O2 Saturation 93.8 L ABG O2 Content 18.5 ABG Base Excess -4.2 A-a Gradient 91.5 Oxyhemoglobin 93.4 Total Hemoglobin 14.1 O2 Delivery Device Nasal cannula O2 Liters/Min 2.0 FiO2 28 Sodium Potassium Chloride Carbon Dioxide Anion Gap BUN Creatinine Estim Creat Clear Calc Estimated GFR Glucose POC Capillary Glucose 227 H 249 H Calcium Magnesium Total Bilirubin AST ALT Alkaline Phosphatase Total Protein Albumin 05/21/24 05/22/24 05/22/24 19:20 06:51 07:27 WBC 18.8 H RBC 4.39 Hgb 12.3 Hct 38.2 MCV 87.0 MCH 28.0 MCHC 32.2 RDW 13.5 Plt Count 217 MPV 11.8 H Immature Gran % (Auto) Not Reportable Neut % (Auto) Not Reportable Lymph % (Auto) Not Reportable [place] % (Auto) Not Reportable Eos % (Auto) Not Reportable Baso % (Auto) Not Reportable Lymph # (Auto) Not Reportable [place] # (Auto) Not Reportable Eos # (Auto) Not Reportable Baso # (Auto) Not Reportable Abs Immat Gran (auto) Not Reportable Absolute Neuts (auto) Not Reportable Absolute Nucleated RBC Not Reportable Total Counted 100 Neutrophils % (Manual) 89 H Band Neutrophils % 1 Lymphocytes % (Manual) 4 L Monocytes % (Manual) 6 Nucleated RBC % Not Reportable Abs Neuts (Manual) 16.92 H Abs Lymphs (Manual) 0.75 L Abs Monocytes (Manual) 1.12 H Platelet Estimate Adequate Schistocytes None seen Puncture Site ABG pH ABG pCO2 ABG pO2 ABG PO2/FiO2 Ratio ABG HCO3 ABG O2 Saturation ABG O2 Content ABG Base Excess A-a Gradient Oxyhemoglobin Total Hemoglobin O2 Delivery Device O2 Liters/Min FiO2 Sodium 133 L Potassium 3.2 L Chloride 108 H Carbon Dioxide 22 Anion Gap 3 L BUN 7 Creatinine 0.60 L Estim Creat Clear Calc 64 Estimated GFR > 60 Glucose 171 H POC Capillary Glucose 273 H 164 H Calcium 9.3 Magnesium 2.0 Total Bilirubin 0.9 AST 35 ALT 27 Alkaline Phosphatase 110 Total Protein 6.0 L Albumin 2.9 L Quality VTE Prophylaxis VTE prophylaxis: pharmacologic ordered -Patient's previous records reviewed on admission -ER notes reviewed in detail on admission -discussed all findings and current treatment plan with patient/Family/POA -Consultations reviewed for recommendations -Patient's disposition for safe discharge discussed with employment case manager Dictation performed by [email or web address] direct speech recognition software, therefore replanting machine crewman variants and typographical errors may occur. Hospitalist MIPS Advance Care Plan I have confirmed that the patient's Advanced Care Plan is present, code status is documented, or surrogate decision maker is listed in patient medical record.: Yes Medication Reconciliation I have utilized all available resources to obtain, update and review the patients current medications (includes all prescriptions, OTC, herbals, cannabis, and nutritional supplements).: Yes The patient is not eligible for med reconciliation; the patient is in a emergent medical situation where delaying treatment would jeopardize the patients health.: No
[2024-05-22] MEDS: FERROUS SULFATE 325 MG TABLET DR BY MOUTH ×2 (12:18→18:21)
[2024-05-22 12:41] LABS: Glucose Point of Care 214 mg/dl (65-105)
[2024-05-22] MEDS: INSULIN ASPART (*BKC) 100 UNITS/ML SUB-Q ×2 (13:26→18:21)
[2024-05-22] MEDS: AZITHROMYCIN 500 MG/NS 250 ML 500 MG/250 ML BAG 250 MG IVPB (13:36)
[2024-05-22 17:19] LABS: Glucose Point of Care 203 mg/dl (65-105)
[2024-05-22] MEDS: ACETIC ACID 0.25% IRRIG SOLN 500 ML IRRIGATION (18:14)
[2024-05-22] MEDS: INSULIN GLARGINE (*BKC) 100 UNITS/ML 22 UNITS SUB-Q (18:30)
[2024-05-22] MEDS: MELATONIN 5 MG TABLET PO (21:07)
[2024-05-22] MEDS: ROSUVASTATIN 10 MG TABLET PO (21:07)
[2024-05-22] MEDS: ESCITALOPRAM OXALATE 10 MG TABLET PO (21:08)
[2024-05-22] MEDS: LORATADINE 10 MG TABLET PO (21:08)
[2024-05-22] MEDS: MICONAZOLE NITRATE 2% CREAM 30 GM TUBE 1 APPLIC TOPICAL (21:09)
[2024-05-22] MEDS: INSULIN GLARGINE (*BKC) 100 UNITS/ML 25 UNITS SUB-Q (21:09)
[2024-05-22 22:22] LABS: Glucose Point of Care 248 mg/dl (65-105)
[2024-05-23] VITALS (16 sets, daily range): BP systolic 124–135; BP diastolic 40–46; PULSE 71–95; RESP 14–24; TEMP 36–37; O2SAT 81–95
[2024-05-23] MEDS: MEROPENEM 1 GM/NS 100 ML 1 GM/100 ML BAG IVPB ×3 (02:21→18:32)
[2024-05-23] MEDS: IPRATROPIUM 0.5 MG/ALBUTEROL SULFATE 2.5 MG AMPUL.NEB 3 ML NEBULIZE ×4 (02:47→21:57)
[2024-05-23] MEDS: LEVOTHYROXINE SODIUM 150 MCG TABLET PO (05:26)
[2024-05-23 06:48] LABS: Hematocrit 35.7 % (37.0-47.0); Hemoglobin 11.9 g/dL (12.0-15.0); Mean Corpuscular HGB Conc 33.3 g/dl (32-36); Mean Corpuscular Hemoglobin 28.5 pg (26-34); Mean Corpuscular Volume 85.4 fl (80-100); Mean Platelet Volume 10.8 fl (7.4-10.4); Platelet Count Result 214 k/mm3 (150-375); Red Blood Count 4.18 M/mm3 (4.2-5.4); Red Cell Distribution Width 13.3 % (11.5-14.5); White Blood Count 16.1 K/mm3 (4.5-10.0)
[2024-05-23 06:59] LABS: Alanine Aminotransferase 22 U/L (6-35); Albumin Level 2.6 g/dL (3.5-5.1); Alkaline Phosphatase 103 U/L (38-126); Anion Gap 0 mmol/L (4-12); Aspartate Amino Transferase 18 U/L (14-36); Bilirubin,Total 0.6 mg/dL (0.2-1.3); Blood Urea Nitrogen 8 mg/dL (7-17); Calcium 9.4 mg/dL (8.4-10.2); Carbon Dioxide 25 mmol/L (22-30); Chloride 108 mmol/L (98-107); Estimated CRCL calculation 65 ml/min; Estimated Glomerular Filt Rate > 60; Glucose 227 mg/dL (65-110); Potassium 3.5 mmol/L (3.4-5.0); Sodium 133 mmol/L (137-145)
[2024-05-23 07:26] LABS: Neutrophils Percent Manual 80 % (46-73); Nucleated Red Blood Cells 1 %; Total Cells Counted 100
[2024-05-23 07:27] LABS: Band Neutrophils Percent 2 % (0-6); Lymphocytes Absolute Manual 1.77 K/mm3 (1.1-4.5); Lymphocytes Percent Manual 11 % (18-44); Monocytes Absolute Manual 1.12 K/mm3 (0.1-0.90); Monocytes Percent Manual 7 % (3-9); Platelet Estimate Adequate (Adequate)
[2024-05-23 07:28] LABS: Schistocytes None Seen
--- NOTE | 2024-05-23 07:50 | P.PNIM_ITS ---
Progress Note: A&P Assessment and Plan (1) UTI (urinary tract infection): Qualifiers: Hematuria presence: with hematuria Urinary tract infection type: acute cystitis Qualified Code(s): N30.01 - Acute cystitis with hematuria Code(s): N39.0 - Urinary tract infection, site not specified Status: Acute Assessment and Plan: patient with history of suprapubic catheter was changed out in the emergency department by Urology daughter had reported hematuria prior to arrival urine is suspicious for UTI patient has had previous urine culture resistant Klebsiella pneumoniae * urology was consulted from the emergency department sign off on this time after successful exchange of suprapubic catheter. * Urine cultures * blood cultures pending * Continue IV hydration. * IV meropenem * Start probiotics to prevent antibiotic induced diarrhea * Monitor for obstructive uropathy and pyelonephritis 05/22/2024 * Urine culture with Proteus mirabilis * oral resistant will continue with IV meropenem (2) Pneumonia: Code(s): J18.9 - Pneumonia, unspecified organism Status: Acute Assessment and Plan: patient with shortness of breath and productive cough chest x-ray could not rule out pneumonia possible viral versus bacterial * currently on IV meropenem * DuoNebs * mucolytics * incentive spirometer * chronically elevated leukocytosis however has trended down to 21.6 was 43.4 on admission * oxygen p.r.n. 05/22/2024 * added PEP therapy * suction p.r.n. * blood cultures no growth today 05/23/2024 * F/U CXR showing bilateral lower lobe PNA * some concern for aspiration with secretions unable to clear * keep HOB at 45 at all times to reduce risk of aspiration * Suction PRN * WBC trending down (3) Leukocytosis: Code(s): D72.829 - Elevated white blood cell count, unspecified Status: Acute Assessment and Plan: patient does have history chronic elevated white count initial white count was 4 3.4, was to follow with Hematology outpatient. * could also be secondary to patient's UTI and possible pneumonia * continue to trend down to 21.6 today Improving (4) Congestive heart failure: Code(s): I50.9 - Heart failure, unspecified Status: Acute Assessment and Plan: Acute on Chronic Diastolic heart failure bilateral crackles at lung bases * BNP >2700 * CXR showing pulmonary edema * last Echo 11/2023 Diastolic heart failure grade 1 with LVEF 60-65% * HX of Aortic Stenosis * gave Lasix x 1 IVP will do daily * Heart healthy diet (5) Hypertension: Code(s): I10 - Essential (primary) hypertension Status: Acute Assessment and Plan: * Stable reviewed (6) Atrial fibrillation: Qualifiers: Atrial fibrillation type: paroxysmal Qualified Code(s): I48.0 - Paroxysmal atrial fibrillation Code(s): I48.91 - Unspecified atrial fibrillation Status: Acute Assessment and Plan: * resume patient's Eliquis * rate controlled (7) Type 2 diabetes mellitus: Qualifiers: Diabetes mellitus complication status: without complication 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 HS * sliding scale insulin * hold oral diabetic medications * resume patient's home long-acting * Diabetic diet * Optimize Mckay inhibitors and statins. * Watch for hypoglycemia/hypoglycemic protocol ordered (8) Hypothyroidism: Code(s): E03.9 - Hypothyroidism, unspecified Status: Acute Assessment and Plan: * resume levothyroxine (9) Sepsis: Code(s): A41.9 - Sepsis, unspecified organism Status: Acute Assessment and Plan: patient presented with elevated white count, tachypnea, lactic acidosis with possible UTI and pneumonia * IV fluid resuscitation. 30mg/kg No septic shock * IV meropenem based on previous urine culture resistant Klebsiella pneumoniae * Monitor lactic acid levels q6hr. Trending down after IV fluids * Repeat CBC, CMP. * Two sets of blood cultures pending * urine cultures pending * Chest x-ray Possible Pneumonia could not be ruled out * Monitor albumin, monitoring of mental status. RESOLVED Plan Code status: Full code per patient DVT prophylaxis: Eliquis Stress ulcer prophylaxis: Protonix 40 daily PT/OT notes: bed-bound Disposition: patient continues admission to the medical unit for sepsis without septic shock secondary to urinary tract infection and possible pneumonia. patient is from a halfway facility and will return when m edically stable. currently on IV meropenem for oral resistant UTI will need 5 days IV meropenem Time Spent With Patient Time with patient: 15 - 25 minutes Subjective Date/time seen: 05/23/24 07:50 Interval history: patient is an 83-year-old female who was admitted for further evaluation and treatment of sepsis without septic shock secondary to UTI and Pneumonia. 05/23/2024: Patient overall just not feeling well with continued productive cough, encourage incentive spirometer and attempting to clear secretions but patient having difficulty clearing. Suction PRN and order patient HOB should always be at at least 45 degrees to prevent aspiration. CXR showed bilateral PNA, afebrile and WBC still trending down. Patient denied CP, N/V but endorsed SOB and productive cough. crackles were noted at the bases of her lungs gave lasix x IVP Review of Systems Review of Systems: All systems reviewed & are unremarkable except as noted in HPI and below Exam Narrative: * GENERAL: Alert and oriented x 3, Pleasant Chronically ill-looking hard of hearing female. No acute distress. * EYES: EOMI. No scleral icterus. PERRLA. * HEENT: Moist mucous membranes. * LUNGS: Rhonchi to auscultation bilaterally, BLL diminished. Crackles on BLL No accessory muscle use but productive cough patient unable to clear secretions * CARDIOVASCULAR: Regular rate and rhythm. No murmur. No JVD. S1-S2 * ABDOMEN: Soft, non tenderness and non-distended. No palpable masses. * EXTREMITIES: No edema. Non-tender, Bed Bound * SKIN: No rashes or lesions. Skin warm, dry. * NEUROLOGIC: No focal neurological deficits. CN II-XII grossly intact * PSYCHIATRIC: Appropriate mood and affect. Good judgement and insight. Objective Data Vital Signs Vital Signs: Vital Signs - 24 hr 05/22/24 08:00 05/22/24 08:04 05/22/24 09:14 Temperature Pulse Rate 85 85 85 Respiratory Rate 20 20 Blood Pressure Pulse Oximetry 94 Oxygen Delivery Nasal Cannula Oxygen Flow Rate 2 Fraction of Inspired Oxygen 28 05/22/24 14:00 05/22/24 14:17 05/22/24 14:17 Temperature 97.7 F Pulse Rate 75 90 Respiratory Rate 18 22 H Blood Pressure 119/46 L Pulse Oximetry 94 91 Oxygen Delivery Nasal Cannula Oxygen Flow Rate 2 Fraction of Inspired Oxygen 28 05/22/24 14:28 05/22/24 20:00 05/22/24 21:02 Temperature 97.9 F Pulse Rate 96 93 Respiratory Rate 24 H 16 Blood Pressure 142/93 H Pulse Oximetry 92 94 Oxygen Delivery Nasal Cannula Oxygen Flow Rate 2 Fraction of Inspired Oxygen 05/22/24 21:07 05/22/24 21:25 05/22/24 22:08 Temperature Pulse Rate 93 91 Respiratory Rate 24 H Blood Pressure Pulse Oximetry 92 Oxygen Delivery Nasal Cannula Oxygen Flow Rate 2 Fraction of Inspired Oxygen 05/23/24 02:47 05/23/24 03:02 05/23/24 05:13 Temperature 96.8 F L Pulse Rate 92 94 75 Respiratory Rate 24 H 24 H 14 Blood Pressure 135/46 L Pulse Oximetry 93 Oxygen Delivery Oxygen Flow Rate Fraction of Inspired Oxygen 05/23/24 07:24 05/23/24 07:24 05/23/24 07:34 Temperature Pulse Rate 71 74 Respiratory Rate 20 20 Blood Pressure Pulse Oximetry 94 Oxygen Delivery Nasal Cannula Oxygen Flow Rate 2 Fraction of Inspired Oxygen 28 Intake/Output Intake/Output: Intake & Output 05/20/24 05/21/24 05/22/24 05/23/24 23:59 23:59 23:59 23:59 Intake Total 4340.4 2050 1248.0 475 Output Total 850 1900 2650 400 Balance 3490.4 150 -1402.0 75 Meds/Results Medications: Active Medications Generic Name Dose Route Start Last Admin Trade Name Freq PRN Reason Stop Dose Admin Acetaminophen 1,000 mg 05/20/24 01:21 Acetaminophen 500 Mg Tablet PO Q6H PRN PAIN 1-3 Hydrocodone Bitart/Acetaminophen 1 tab 05/19/24 16:32 Hydrocodone/Acetaminophen (*Crx) 5-325 Mg Tablet PO Q4H PRN Pain Rated 4-6 Albuterol 2 puff 05/20/24 01:21 05/21/24 16:43 Albuterol Sulfate (*Sp) Aerosol 1 Puff INHALATION 2 puff PRN PRN Administration wheezing Albuterol/Ipratropium 3 ml 05/19/24 20:00 05/23/24 07:24 Ipratropium 0.5 Mg/Albuterol Sulfate 2.5 Mg Ampul.Neb 3 Ml NEBULIZE 3 ml Q6HRT KATHARINE Administration Apixaban 5 mg 05/20/24 09:00 05/22/24 21:08 Apixaban 5 Mg Tablet PO 5 mg Q12HR KATHARINE Administration Calcium Carbonate 200 mg 05/20/24 01:47 Calcium Carbonate (Tums) 500 Mg (200 Mg Elemental) BY MOUTH BID PRN Indigestion Dextrose 12.5 gm 05/20/24 01:25 Dextrose 50% 25 Gm/50 Ml Syringe IV PUSH PRN PRN Hypoglycemia Protocol Dorzolamide HCl 2 drop 05/20/24 09:00 05/22/24 21:08 Dorzolamide Hcl 2% Ophth Drops EACH EYE 2 drop 0900,1200,2100 KATHARINE Administration Escitalopram Oxalate 10 mg 05/20/24 21:00 05/22/24 21:08 Escitalopram Oxalate 10 Mg Tablet PO 10 mg QHS KATHARINE Administration Ferrous Sulfate 325 mg 05/20/24 12:00 05/22/24 18:21 Ferrous Sulfate [address] BY MOUTH 325 mg 1200,1700 [facility] Administration Flecainide Acetate 50 mg 05/20/24 09:00 05/22/24 21:07 Flecainide Acetate 50 Mg Tablet PO 50 mg Q12HR KATHARINE Administration Glucagon 1 mg 05/20/24 01:25 Glucagon For Inj 1 Mg Vial IM PRN PRN Hypoglycemia Protocol Glucose 15 gm 05/20/24 01:25 Glucose Oral Gel 15 Gm Of Glucse In 37.5 Gm Tube PO PRN PRN Hypoglycemia Protocol Guaifenesin 1,200 mg 05/21/24 21:00 05/22/24 21:08 Guaifenesin 12 Hr 600 Mg Tabcr PO 1,200 mg Q12HR KATHARINE Administration Hyoscyamine 0.125 mg 05/20/24 01:21 Hyoscyamine Sulfate 0.125 Mg Tablet PO BID PRN cramping Azithromycin 500 mg in 250 mls @ 250 mls/hr 05/20/24 14:00 05/22/24 14:36 Zithromax IVPB Infused Q24H KATHARINE Infusion Dextrose 1,000 mls @ 100 mls/hr 05/20/24 01:25 Dextrose 5% 1,000 Ml IVPB PRN PRN Hypoglycemia Protocol Meropenem 1 gm in 100 mls @ 200 mls/hr 05/21/24 11:00 05/23/24 05:41 IVPB Infused Q8H KATHARINE Infusion Insulin Aspart 3 - 6 units 05/20/24 08:00 05/22/24 18:21 Insulin Aspart (*Bkc) 100 Units/Ml SUB-Q 3 units TIDWM KATHARINE Administration Protocol Insulin Glargine 25 units 05/20/24 01:30 05/22/24 21:09 Insulin Glargine (*Bkc) 100 Units/Ml SUB-Q 25 units HS KATHARINE Administration Insulin Glargine 22 units 05/21/24 18:00 05/22/24 18:30 Insulin Glargine (*Bkc) 100 Units/Ml SUB-Q 22 units QPM KATHARINE Administration Levothyroxine Sodium 75 mcg 05/20/24 06:30 05/22/24 05:39 Levothyroxine Sodium 75 Mcg Tablet PO 75 mcg [id number] KATHARINE Administration Levothyroxine Sodium 150 mcg 05/23/24 06:30 05/23/24 05:26 Levothyroxine Sodium 150 Mcg Tablet PO 150 mcg [id number]@[id number] KATHARINE Administration Loratadine 10 mg 05/21/24 21:00 05/22/24 21:08 Loratadine 10 Mg Tablet PO 10 mg QHS KATHARINE Administration Melatonin 5 mg 05/20/24 21:00 05/22/24 21:07 Melatonin 5 Mg Tablet PO 5 mg HS KATHARINE Administration Miconazole Nitrate 1 applic 05/22/24 21:00 05/22/24 21:09 Miconazole Nitrate 2% Cream 30 Gm Tube TOPICAL 1 applic Q12HR KATHARINE Administration Nitroglycerin 0.4 mg 05/20/24 01:21 Nitroglycerin Sl 0.4 Mg Tablet SUBLINGUAL PRN PRN Chest Pain Nystatin 5 ml 05/20/24 09:00 05/22/24 21:09 Nystatin 100,000 Units/Ml Susp 5 Ml Oral.Susp PO 5 ml QID KATHARINE Administration Ondansetron HCl 4 mg 05/21/24 10:18 05/21/24 17:35 Ondansetron Inj 4 Mg/2 Ml Vial IV PUSH 4 mg Q6H PRN Administration Nausea And Vomiting Pantoprazole Sodium 40 mg 05/20/24 09:00 05/22/24 09:13 Pantoprazole 40 Mg Tablet PO 40 mg DAILY KATHARINE Administration Rosuvastatin Calcium 10 mg 05/20/24 21:00 05/22/24 21:07 Rosuvastatin 10 Mg Tablet PO 10 mg HS KATHARINE Administration Saccharomyces Boulardii 250 mg 05/20/24 09:00 05/22/24 18:21 Saccharomyces Boulardii 250 Mg Capsule PO 250 mg BID KATHARINE Administration Radiology Results: ITS Impressions Chest X-Ray 05/21/24 17:58 IMPRESSION: Bilateral pneumonia. Underlying pulmonary edema is not excluded Labs Labs: Laboratory Results - last 24 hr 05/21/24 05/22/24 05/22/24 18:03 06:51 12:21 WBC 18.8 H RBC 4.39 Hgb 12.3 Hct 38.2 MCV 87.0 MCH 28.0 MCHC 32.2 RDW 13.5 Plt Count 217 MPV 11.8 H Immature Gran % (Auto) Not Reportable Neut % (Auto) Not Reportable Lymph % (Auto) Not Reportable Hyde % (Auto) Not Reportable Eos % (Auto) Not Reportable Baso % (Auto) Not Reportable Lymph # (Auto) Not Reportable Hyde # (Auto) Not Reportable Eos # (Auto) Not Reportable Baso # (Auto) Not Reportable Abs Immat Gran (auto) Not Reportable Absolute Neuts (auto) Not Reportable Absolute Nucleated RBC Not Reportable Total Counted 100 Neutrophils % (Manual) 89 H Band Neutrophils % 1 Lymphocytes % (Manual) 4 L Monocytes % (Manual) 6 Nucleated RBC % Not Reportable Abs Neuts (Manual) 16.92 H Abs Lymphs (Manual) 0.75 L Abs Monocytes (Manual) 1.12 H Nucleated RBCs Platelet Estimate Adequate Schistocytes None seen Puncture Site Right radial ABG pH 7.391 ABG pCO2 33.5 L ABG pO2 68.6 L ABG PO2/FiO2 Ratio 2.45 ABG HCO3 19.9 L ABG O2 Saturation 93.8 L ABG O2 Content 18.5 ABG Base Excess -4.2 A-a Gradient 91.5 Oxyhemoglobin 93.4 Total Hemoglobin 14.1 O2 Delivery Device Nasal cannula O2 Liters/Min 2.0 FiO2 28 Sodium 133 L Potassium 3.2 L Chloride 108 H Carbon Dioxide 22 Anion Gap 3 L BUN 7 Creatinine 0.60 L Estim Creat Clear Calc 64 Estimated GFR > 60 Glucose 171 H POC Capillary Glucose 214 H Calcium 9.3 Magnesium 2.0 Total Bilirubin 0.9 AST 35 ALT 27 Alkaline Phosphatase 110 Total Protein 6.0 L Albumin 2.9 L 05/22/24 05/22/24 05/23/24 17:03 21:05 06:43 WBC 16.1 H RBC 4.18 L Hgb 11.9 L Hct 35.7 L MCV 85.4 MCH 28.5 MCHC 33.3 RDW 13.3 Plt Count 214 MPV 10.8 H Immature Gran % (Auto) Not Reportable Neut % (Auto) Not Reportable Lymph % (Auto) Not Reportable Hyde % (Auto) Not Reportable Eos % (Auto) Not Reportable Baso % (Auto) Not Reportable Lymph # (Auto) Not Reportable Hyde # (Auto) Not Reportable Eos # (Auto) Not Reportable Baso # (Auto) Not Reportable Abs Immat Gran (auto) Not Reportable Absolute Neuts (auto) Not Reportable Absolute Nucleated RBC Not Reportable Total Counted 100 Neutrophils % (Manual) 80 H Band Neutrophils % 2 Lymphocytes % (Manual) 11 L Monocytes % (Manual) 7 Nucleated RBC % Not Reportable Abs Neuts (Manual) 13.20 H Abs Lymphs (Manual) 1.77 Abs Monocytes (Manual) 1.12 H Nucleated RBCs 1 Platelet Estimate Adequate Schistocytes None seen Puncture Site ABG pH ABG pCO2 ABG pO2 ABG PO2/FiO2 Ratio ABG HCO3 ABG O2 Saturation ABG O2 Content ABG Base Excess A-a Gradient Oxyhemoglobin Total Hemoglobin O2 Delivery Device O2 Liters/Min FiO2 Sodium 133 L Potassium 3.5 Chloride 108 H Carbon Dioxide 25 Anion Gap 0 L BUN 8 Creatinine 0.60 L Estim Creat Clear Calc 65 Estimated GFR > 60 Glucose 227 H POC Capillary Glucose 203 H 248 H Calcium 9.4 Magnesium 2.0 Total Bilirubin 0.6 AST 18 ALT 22 Alkaline Phosphatase 103 Total Protein 5.0 L Albumin 2.6 L Quality VTE Prophylaxis VTE prophylaxis: pharmacologic ordered -Patient's previous records reviewed on admission -ER notes reviewed in detail on admission -discussed all findings and current treatment plan with patient/Family/POA -Consultations reviewed for recommendations -Patient's disposition for safe discharge discussed with director of casework Dictation performed by [employer] direct speech recognition software, therefore interventional sale consultant variants and typographical errors may occur. Hospitalist MIPS Advance Care Plan I have confirmed that the patient's Advanced Care Plan is present, code status is documented, or surrogate decision maker is listed in patient medical record.: Yes Medication Reconciliation I have utilized all available resources to obtain, update and review the patients current medications (includes all prescriptions, OTC, herbals, cannabis, and nutritional supplements).: Yes The patient is not eligible for med reconciliation; the patient is in a emergent medical situation where delaying treatment would jeopardize the patients health.: No
[2024-05-23 08:13] LABS: Glucose Point of Care 210 mg/dl (65-105)
[2024-05-23] MEDS: APIXABAN 5 MG TABLET PO ×2 (11:49→21:30)
[2024-05-23] MEDS: FLECAINIDE ACETATE 50 MG TABLET PO ×2 (11:49→21:29)
[2024-05-23] MEDS: PANTOPRAZOLE 40 MG TABLET PO (11:49)
[2024-05-23] MEDS: guaiFENesin 12 HR 600 MG TABCR 1200 MG PO ×2 (11:49→21:30)
[2024-05-23] MEDS: SACCHAROMYCES BOULARDII 250 MG CAPSULE PO ×2 (11:49→18:21)
[2024-05-23] MEDS: FUROSEMIDE INJ 40 MG/4 ML VIAL IV PUSH (11:51)
[2024-05-23] MEDS: NYSTATIN 100,000 UNITS/ML SUSP 5 ML ORAL.SUSP PO ×3 (11:51→21:46)
[2024-05-23] MEDS: MICONAZOLE NITRATE 2% CREAM 30 GM TUBE 1 APPLIC TOPICAL ×2 (11:51→21:34)
[2024-05-23] MEDS: DORZOLAMIDE HCL 2% OPHTH DROPS 2 DROP EACH EYE ×2 (11:55→21:33)
[2024-05-23] MEDS: FERROUS SULFATE 325 MG TABLET DR BY MOUTH ×2 (11:55→18:30)
[2024-05-23 12:09] LABS: Glucose Point of Care 216 mg/dl (65-105)
[2024-05-23 12:21] LABS: NT Pro B Type Natriuretic Pept 2780 pg/mL (19.9-100)
[2024-05-23] MEDS: INSULIN ASPART (*BKC) 100 UNITS/ML SUB-Q ×2 (14:26→18:21)
[2024-05-23] MEDS: AZITHROMYCIN 500 MG/NS 250 ML 500 MG/250 ML BAG 250 MG IVPB (14:28)
[2024-05-23 17:20] LABS: Glucose Point of Care 254 mg/dl (65-105)
[2024-05-23] MEDS: INSULIN GLARGINE (*BKC) 100 UNITS/ML 22 UNITS SUB-Q (18:24)
[2024-05-23] MEDS: ESCITALOPRAM OXALATE 10 MG TABLET PO (21:29)
[2024-05-23] MEDS: MELATONIN 5 MG TABLET PO (21:30)
[2024-05-23] MEDS: ROSUVASTATIN 10 MG TABLET PO (21:30)
[2024-05-23] MEDS: LORATADINE 10 MG TABLET PO (21:30)
[2024-05-23] MEDS: INSULIN GLARGINE (*BKC) 100 UNITS/ML 25 UNITS SUB-Q (22:27)
[2024-05-23 22:31] LABS: Glucose Point of Care 245 mg/dl (65-105)
[2024-05-24] VITALS (13 sets, daily range): BP systolic 107–134; BP diastolic 46–51; PULSE 68–85; RESP 18–22; TEMP 35.9–36.6; O2SAT 94–97
[2024-05-24] MEDS: MEROPENEM 1 GM/NS 100 ML 1 GM/100 ML BAG IVPB ×3 (02:49→21:26)
[2024-05-24] MEDS: IPRATROPIUM 0.5 MG/ALBUTEROL SULFATE 2.5 MG AMPUL.NEB 3 ML NEBULIZE ×4 (02:50→20:36)
[2024-05-24] MEDS: LEVOTHYROXINE SODIUM 75 MCG TABLET PO (05:32)
[2024-05-24 07:52] LABS: Glucose Point of Care 169 mg/dl (65-105)
[2024-05-24] MEDS: PANTOPRAZOLE 40 MG TABLET PO (08:30)
[2024-05-24] MEDS: FLECAINIDE ACETATE 50 MG TABLET PO ×2 (08:30→21:32)
[2024-05-24] MEDS: SACCHAROMYCES BOULARDII 250 MG CAPSULE PO ×2 (08:30→17:14)
[2024-05-24] MEDS: DORZOLAMIDE HCL 2% OPHTH DROPS 2 DROP EACH EYE ×3 (08:30→21:33)
[2024-05-24] MEDS: guaiFENesin 12 HR 600 MG TABCR 1200 MG PO ×2 (08:30→21:31)
[2024-05-24] MEDS: APIXABAN 5 MG TABLET PO ×2 (08:31→21:31)
[2024-05-24] MEDS: FUROSEMIDE INJ 40 MG/4 ML VIAL IV PUSH (08:31)
[2024-05-24] MEDS: MICONAZOLE NITRATE 2% CREAM 30 GM TUBE 1 APPLIC TOPICAL ×2 (08:32→21:34)
[2024-05-24 09:33] LABS: Hematocrit 39.6 % (37.0-47.0); Hemoglobin 13.4 g/dL (12.0-15.0); Mean Corpuscular HGB Conc 33.8 g/dl (32-36); Mean Corpuscular Hemoglobin 28.4 pg (26-34); Mean Corpuscular Volume 83.9 fl (80-100); Mean Platelet Volume 11.1 fl (7.4-10.4); Platelet Count Result 264 k/mm3 (150-375); Red Blood Count 4.72 M/mm3 (4.2-5.4); Red Cell Distribution Width 13.2 % (11.5-14.5); White Blood Count 18.8 K/mm3 (4.5-10.0)
[2024-05-24 09:50] LABS: Alanine Aminotransferase 21 U/L (6-35); Alkaline Phosphatase 112 U/L (38-126); Anion Gap 2 mmol/L (4-12); Aspartate Amino Transferase 18 U/L (14-36); Bilirubin,Total 0.6 mg/dL (0.2-1.3); Blood Urea Nitrogen 10 mg/dL (7-17); Calcium 9.8 mg/dL (8.4-10.2); Carbon Dioxide 24 mmol/L (22-30); Chloride 108 mmol/L (98-107); Estimated CRCL calculation 65 ml/min; Estimated Glomerular Filt Rate > 60; Glucose 181 mg/dL (65-110); Magnesium 2.1 mg/dL (1.6-2.3); Potassium 3.4 mmol/L (3.4-5.0); Sodium 134 mmol/L (137-145)
[2024-05-24 10:04] LABS: Band Neutrophils Percent 3 % (0-6); Eosinophils Absolute Manual 0.37 K/mm3 (0.02-0.50); Eosinophils Percent Manual 2 % (0-4); Lymphocytes Absolute Manual 2.25 K/mm3 (1.1-4.5); Lymphocytes Percent Manual 12 % (18-44); Monocytes Absolute Manual 2.63 K/mm3 (0.1-0.90); Monocytes Percent Manual 14 % (3-9); Neutrophils Absolute Manual 13.53 K/mm3 (1.7-7.2); Neutrophils Percent Manual 69 % (46-73); Total Cells Counted 100
[2024-05-24 10:05] LABS: Platelet Estimate Adequate (Adequate); Schistocytes None Seen
[2024-05-24 11:57] LABS: Glucose Point of Care 248 mg/dl (65-105)
[2024-05-24] MEDS: FERROUS SULFATE 325 MG TABLET DR BY MOUTH ×2 (12:05→17:14)
--- NOTE | 2024-05-24 12:25 | P.PNIM_ITS ---
Progress Note: A&P Assessment and Plan (1) UTI (urinary tract infection): Qualifiers: Hematuria presence: with hematuria Urinary tract infection type: acute cystitis Qualified Code(s): N30.01 - Acute cystitis with hematuria Code(s): N39.0 - Urinary tract infection, site not specified Status: Acute Assessment and Plan: patient with history of suprapubic catheter was changed out in the emergency department by Urology daughter had reported hematuria prior to arrival urine is suspicious for UTI patient has had previous urine culture resistant Klebsiella pneumoniae * urology was consulted from the emergency department sign off on this time after successful exchange of suprapubic catheter. * Urine cultures * blood cultures pending * Continue IV hydration. * IV meropenem * Start probiotics to prevent antibiotic induced diarrhea * Monitor for obstructive uropathy and pyelonephritis 05/22/2024 * Urine culture with Proteus mirabilis * oral resistant will continue with IV meropenem 05/24/24 * Today is Day #4 of Meropenem therapy. Continue. * WBC's trending downward. (2) Pneumonia: Code(s): J18.9 - Pneumonia, unspecified organism Status: Acute Assessment and Plan: patient with shortness of breath and productive cough chest x-ray could not rule out pneumonia possible viral versus bacterial * currently on IV meropenem * DuoNebs * mucolytics * incentive spirometer * chronically elevated leukocytosis however has trended down to 21.6 was 43.4 on admission * oxygen p.r.n. 05/22/2024 * added PEP therapy * suction p.r.n. * blood cultures no growth today 05/23/2024 * F/U CXR showing bilateral lower lobe PNA * some concern for aspiration with secretions unable to clear * keep HOB at 45 at all times to reduce risk of aspiration * Suction PRN * WBC trending down 05/24/24: * WBC's 18.8 today. Continuing to trend downward. * Continue to monitor and trend labs. * Continue supportive care with suctioning, HOB at 45 degrees * Monitor labs and VS. * Wean oxygen as able to. (3) Leukocytosis: Code(s): D72.829 - Elevated white blood cell count, unspecified Status: Acute Assessment and Plan: patient does have history chronic elevated white count initial white count was 4 3.4, was to follow with Hematology outpatient. * could also be secondary to patient's UTI and possible pneumonia * continue to trend down to 21.6 today 05/24/24: * Trend 43.4-->29.9-->21.9-->18.8-->16.1-->18.8 today. * Continue meropenem * Continue to trend labs and monitor VS. (4) Congestive heart failure: Code(s): I50.9 - Heart failure, unspecified Status: Acute Assessment and Plan: Acute on Chronic Diastolic heart failure bilateral crackles at lung bases * BNP >2700 * CXR showing pulmonary edema * last Echo 11/2023 Diastolic heart failure grade 1 with LVEF 60-65% * HX of Aortic Stenosis * gave Lasix x 1 IVP will do daily * Heart healthy diet 05/24/24: * Continue Furosemide daily at 40 mg IVP. * Pt's renal function is tolerating the Lasix dose. (5) Hypertension: Code(s): I10 - Essential (primary) hypertension Status: Acute Assessment and Plan: * Stable reviewed (6) Atrial fibrillation: Qualifiers: Atrial fibrillation type: paroxysmal Qualified Code(s): I48.0 - Paroxysmal atrial fibrillation Code(s): I48.91 - Unspecified atrial fibrillation Status: Acute Assessment and Plan: * resume patient's Eliquis * rate controlled (7) Type 2 diabetes mellitus: Qualifiers: Diabetes mellitus usp insulin use: with terminal system operator use Diabetes mellitus complication status: without complication Qualified Code(s): E11.9 - Type 2 diabetes mellitus without complications; Z79.4 - ad terminal makeup operator (current) use of insulin Code(s): E11.9 - Type 2 diabetes mellitus without complications Status: Acute Assessment and Plan: * Accu-Cheks a.cTyrone HS * sliding scale insulin * hold oral diabetic medications * resume patient's home long-acting * Diabetic diet * Optimize Mckay inhibitors and statins. * Watch for hypoglycemia/hypoglycemic protocol ordered (8) Hypothyroidism: Code(s): E03.9 - Hypothyroidism, unspecified Status: Acute Assessment and Plan: * resume levothyroxine (9) Sepsis: Code(s): A41.9 - Sepsis, unspecified organism Status: Resolved Assessment and Plan: patient presented with elevated white count, tachypnea, lactic acidosis with possible UTI and pneumonia * IV fluid resuscitation. 30mg/kg No septic shock * IV meropenem based on previous urine culture resistant Klebsiella pneumoniae * Monitor lactic acid levels q6hr. Trending down after IV fluids * Repeat CBC, CMP. * Two sets of blood cultures pending * urine cultures pending * Chest x-ray Possible Pneumonia could not be ruled out * Monitor albumin, monitoring of mental status. RESOLVED Plan Code status: Full code per patient DVT prophylaxis: Eliquis Stress ulcer prophylaxis: Protonix 40 daily PT/OT notes: bed-bound Disposition: patient continues admission to the medical unit for sepsis without septic shock secondary to urinary tract infection and possible p neumonia. patient is from a detention facility and will return when medically stable. currently on IV meropenem for oral resistant UTI will need 5 days IV meropenem Time Spent With Patient Time with patient: 15 - 25 minutes Subjective Date/time seen: 05/24/24 12:25 Interval history: Pt evaluated at bedside. Breathing about the same as yesterday per pt. She has an audible crackle and rales to her breathing. No new complaints of CP. She remains on 3L Supplemental oxygen to maintain her sats. Review of Systems Review of Systems: All systems reviewed & are unremarkable except as noted in HPI and below Exam Narrative: * GENERAL: Alert and oriented x 3, Pleasant Chronically ill-looking hard of hearing female. No acute distress. * EYES: EOMI. No scleral icterus. PERRLA. * HEENT: Moist mucous membranes. LITTLE TRAVERSE * LUNGS: Coarse breath sounds throughout with some crackles present in the Right lobes. No acute distress noted. * CARDIOVASCULAR: Regular rate and rhythm. No murmur. No JVD. S1-S2 * ABDOMEN: Soft, non tenderness and non-distended. No palpable masses. * EXTREMITIES: No edema. Non-tender, FROM. * SKIN: No rashes or lesions. Skin warm, dry. * NEUROLOGIC: No focal neurological deficits. CN II-XII grossly intact * PSYCHIATRIC: Appropriate mood and affect. Good judgement and insight. Objective Data Vital Signs Vital Signs: Vital Signs - 24 hr 05/23/24 13:22 05/23/24 13:22 05/23/24 13:23 Temperature Pulse Rate 88 Respiratory Rate 24 H Blood Pressure Pulse Oximetry 81 L 92 Oxygen Delivery Room Air Nasal Cannula Oxygen Flow Rate 2 Fraction of Inspired Oxygen 21 28 05/23/24 13:29 05/23/24 14:00 05/23/24 20:00 Temperature 98.6 F Pulse Rate 86 95 Respiratory Rate 20 16 Blood Pressure 124/42 L Pulse Oximetry 92 95 Oxygen Delivery Nasal Cannula Oxygen Flow Rate 3.5 Fraction of Inspired Oxygen 05/23/24 21:58 05/23/24 22:00 05/23/24 22:11 Temperature 98.0 F Pulse Rate 81 85 Respiratory Rate 20 20 Blood Pressure 135/40 L Pulse Oximetry 94 93 Oxygen Delivery Nasal Cannula Oxygen Flow Rate 3.5 Fraction of Inspired Oxygen 05/23/24 22:12 05/24/24 02:50 05/24/24 02:58 Temperature Pulse Rate 85 71 85 Respiratory Rate 20 20 20 Blood Pressure Pulse Oximetry Oxygen Delivery Oxygen Flow Rate Fraction of Inspired Oxygen 05/24/24 06:00 05/24/24 08:12 05/24/24 08:12 Temperature 97.6 F Pulse Rate 68 68 Respiratory Rate 18 20 Blood Pressure 116/46 L Pulse Oximetry 96 95 Oxygen Delivery Nasal Cannula Oxygen Flow Rate 3 Fraction of Inspired Oxygen 32 05/24/24 08:22 05/24/24 08:30 Temperature Pulse Rate 71 68 Respiratory Rate 20 Blood Pressure Pulse Oximetry Oxygen Delivery Oxygen Flow Rate Fraction of Inspired Oxygen Intake/Output Intake/Output: Intake & Output 05/21/24 05/22/24 05/23/24 05/24/24 23:59 23:59 23:59 23:59 Intake Total 2050 1248.0 2675 337 Output Total 190 2650 800 1500 Balance 150 -1402.0 1875 -1163 Meds/Results Medications: Active Medications Generic Name Dose Route Start Last Admin Trade Name Freq PRN Reason Stop Dose Admin Acetaminophen 1,000 mg 05/20/24 01:21 Acetaminophen 500 Mg Tablet PO Q6H PRN PAIN 1-3 Hydrocodone Bitart/Acetaminophen 1 tab 05/19/24 16:32 Hydrocodone/Acetaminophen (*Crx) 5-325 Mg Tablet PO Q4H PRN Pain Rated 4-6 Albuterol 2 puff 05/20/24 01:21 05/21/24 16:43 Albuterol Sulfate (*Sp) Aerosol 1 Puff INHALATION 2 puff PRN PRN Administration wheezing Albuterol/Ipratropium 3 ml 05/19/24 20:00 05/24/24 08:12 Ipratropium 0.5 Mg/Albuterol Sulfate 2.5 Mg Ampul.Neb 3 Ml NEBULIZE 3 ml Q6HRT KATHARINE Administration Apixaban 5 mg 05/20/24 09:00 05/24/24 08:31 Apixaban 5 Mg Tablet PO 5 mg Q12HR KATHARINE Administration Calcium Carbonate 200 mg 05/20/24 01:47 Calcium Carbonate (Tums) 500 Mg (200 Mg Elemental) BY MOUTH BID PRN Indigestion Dextrose 12.5 gm 05/20/24 01:25 Dextrose 50% 25 Gm/50 Ml Syringe IV PUSH PRN PRN Hypoglycemia Protocol Dorzolamide HCl 2 drop 05/20/24 09:00 05/24/24 12:05 Dorzolamide Hcl 2% Ophth Drops EACH EYE 2 drop 0900,1200,2100 KATHARINE Administration Escitalopram Oxalate 10 mg 05/20/24 21:00 05/23/24 21:29 Escitalopram Oxalate 10 Mg Tablet PO 10 mg QHS KATHARINE Administration Ferrous Sulfate 325 mg 05/20/24 12:00 05/24/24 12:05 Ferrous Sulfate [address] BY MOUTH 325 mg 1200,1700 KATHARINE Administration Flecainide Acetate 50 mg 05/20/24 09:00 05/24/24 08:30 Flecainide Acetate 50 Mg Tablet PO 50 mg Q12HR KATHARINE Administration Furosemide 40 mg 05/24/24 09:00 05/24/24 08:31 Furosemide Inj 40 Mg/4 Ml Vial IV PUSH 40 mg DAILY KATHARINE Administration Glucagon 1 mg 05/20/24 01:25 Glucagon For Inj 1 Mg Vial IM PRN PRN Hypoglycemia Protocol Glucose 15 gm 05/20/24 01:25 Glucose Oral Gel 15 Gm Of Glucse In 37.5 Gm Tube PO PRN PRN Hypoglycemia Protocol Guaifenesin 1,200 mg 05/21/24 21:00 05/24/24 08:30 Guaifenesin 12 Hr 600 Mg Tabcr PO 1,200 mg Q12HR KATHARINE Administration Hyoscyamine 0.125 mg 05/20/24 01:21 Hyoscyamine Sulfate 0.125 Mg Tablet PO BID PRN cramping Azithromycin 500 mg in 250 mls @ 250 mls/hr 05/20/24 14:00 05/23/24 15:28 Zithromax IVPB Infused Q24H KATHARINE Infusion Dextrose 1,000 mls @ 100 mls/hr 05/20/24 01:25 Dextrose 5% 1,000 Ml IVPB PRN PRN Hypoglycemia Protocol Meropenem 1 gm in 100 mls @ 200 mls/hr 05/21/24 11:00 05/24/24 12:04 IVPB 200 mls/hr Q8H KATHARINE Administration Insulin Aspart 3 - 6 units 05/20/24 08:00 05/24/24 08:02 Insulin Aspart (*Bkc) 100 Units/Ml SUB-Q Not Given TIDWM KATHARINE Protocol Insulin Glargine 25 units 05/20/24 01:30 05/23/24 22:27 Insulin Glargine (*Bkc) 100 Units/Ml SUB-Q 25 units HS KATHARINE Administration Insulin Glargine 22 units 05/21/24 18:00 05/23/24 18:24 Insulin Glargine (*Bkc) 100 Units/Ml SUB-Q 22 units QPM KATHARINE Administration Levothyroxine Sodium 75 mcg 05/20/24 06:30 05/24/24 05:32 Levothyroxine Sodium 75 Mcg Tablet PO 75 mcg [id number] KATHARINE Administration Levothyroxine Sodium 150 mcg 05/23/24 06:30 05/23/24 05:26 Levothyroxine Sodium 150 Mcg Tablet PO 150 mcg Ramirez@0630 [facility] Administration Loratadine 10 mg 05/21/24 21:00 05/23/24 21:30 Loratadine 10 Mg Tablet PO 10 mg QHS [facility] Administration Melatonin 5 mg 05/20/24 21:00 05/23/24 21:30 Melatonin 5 Mg Tablet PO 5 mg HS [facility] Administration Miconazole Nitrate 1 applic 05/22/24 21:00 05/24/24 08:32 Miconazole Nitrate 2% Cream 30 Gm Tube TOPICAL 1 applic Q12HR [facility] Administration Nitroglycerin 0.4 mg 05/20/24 01:21 Nitroglycerin Sl 0.4 Mg Tablet SUBLINGUAL PRN PRN Chest Pain Nystatin 5 ml 05/20/24 09:00 05/24/24 08:41 Nystatin 100,000 Units/Ml Susp 5 Ml Oral.Susp PO Not Given QID [facility] Ondansetron HCl 4 mg 05/21/24 10:18 05/21/24 17:35 Ondansetron Inj 4 Mg/2 Ml Vial IV PUSH 4 mg Q6H PRN Administration Nausea And Vomiting Pantoprazole Sodium 40 mg 05/20/24 09:00 05/24/24 08:30 Pantoprazole 40 Mg Tablet PO 40 mg DAILY [facility] Administration Rosuvastatin Calcium 10 mg 05/20/24 21:00 05/23/24 21:30 Rosuvastatin 10 Mg Tablet PO 10 mg HS [facility] Administration Saccharomyces Boulardii 250 mg 05/20/24 09:00 05/24/24 08:30 Saccharomyces Boulardii 250 Mg Capsule PO 250 mg BID KATHARINE Administration Radiology Results: ITS Impressions Chest X-Ray 05/21/24 17:58 IMPRESSION: Bilateral pneumonia. Underlying pulmonary edema is not excluded Labs Labs: Laboratory Results - last 24 hr 05/23/24 05/23/24 05/24/24 17:11 21:33 07:43 WBC RBC Hgb Hct MCV MCH MCHC RDW Plt Count MPV Immature Gran % (Auto) Neut % (Auto) Lymph % (Auto) [place] % (Auto) Eos % (Auto) Baso % (Auto) Lymph # (Auto) [place] # (Auto) Eos # (Auto) Baso # (Auto) Abs Immat Gran (auto) Absolute Neuts (auto) Absolute Nucleated RBC Total Counted Neutrophils % (Manual) Band Neutrophils % Lymphocytes % (Manual) Monocytes % (Manual) Eosinophils % (Manual) Nucleated RBC % Abs Neuts (Manual) Abs Lymphs (Manual) Abs Monocytes (Manual) Absolute Eos (Manual) Platelet Estimate Schistocytes Sodium Potassium Chloride Carbon Dioxide Anion Gap BUN Creatinine Estim Creat Clear Calc Estimated GFR Glucose POC Capillary Glucose 254 H 245 H 169 H Calcium Magnesium Total Bilirubin AST ALT Alkaline Phosphatase Total Protein Albumin 05/24/24 05/24/24 09:19 11:46 WBC 18.8 H RBC 4.72 Hgb 13.4 Hct 39.6 MCV 83.9 MCH 28.4 MCHC 33.8 RDW 13.2 Plt Count 264 MPV 11.1 H Immature Gran % (Auto) Not Reportable Neut % (Auto) Not Reportable Lymph % (Auto) Not Reportable [place] % (Auto) Not Reportable Eos % (Auto) Not Reportable Baso % (Auto) Not Reportable Lymph # (Auto) Not Reportable [place] # (Auto) Not Reportable Eos # (Auto) Not Reportable Baso # (Auto) Not Reportable Abs Immat Gran (auto) Not Reportable Absolute Neuts (auto) Not Reportable Absolute Nucleated RBC Not Reportable Total Counted 100 Neutrophils % (Manual) 69 Band Neutrophils % 3 Lymphocytes % (Manual) 12 L Monocytes % (Manual) 14 H Eosinophils % (Manual) 2 Nucleated RBC % Not Reportable Abs Neuts (Manual) 13.53 H Abs Lymphs (Manual) 2.25 Abs Monocytes (Manual) 2.63 H Absolute Eos (Manual) 0.37 Platelet Estimate Adequate Schistocytes None seen Sodium 134 L Potassium 3.4 Chloride 108 H Carbon Dioxide 24 Anion Gap 2 L BUN 10 Creatinine 0.60 L Estim Creat Clear Calc 65 Estimated GFR > 60 Glucose 181 H POC Capillary Glucose 248 H Calcium 9.8 Magnesium 2.1 Total Bilirubin 0.6 AST 18 ALT 21 Alkaline Phosphatase 112 Total Protein 6.0 L Albumin 3.0 L Quality VTE Prophylaxis VTE prophylaxis: pharmacologic ordered
[2024-05-24] MEDS: AZITHROMYCIN 500 MG/NS 250 ML 500 MG/250 ML BAG 250 MG IVPB (13:18)
[2024-05-24] MEDS: INSULIN ASPART (*BKC) 100 UNITS/ML SUB-Q ×2 (13:25→17:14)
[2024-05-24 16:49] LABS: Glucose Point of Care 287 mg/dl (65-105)
[2024-05-24 20:20] LABS: Glucose Point of Care 281 mg/dl (65-105)
[2024-05-24] MEDS: LORATADINE 10 MG TABLET PO (21:31)
[2024-05-24] MEDS: MELATONIN 5 MG TABLET PO (21:31)
[2024-05-24] MEDS: ESCITALOPRAM OXALATE 10 MG TABLET PO (21:32)
[2024-05-24] MEDS: NYSTATIN 100,000 UNITS/ML SUSP 5 ML ORAL.SUSP PO (21:34)
[2024-05-24] MEDS: ROSUVASTATIN 10 MG TABLET PO (21:34)
[2024-05-24] MEDS: INSULIN GLARGINE (*BKC) 100 UNITS/ML 25 UNITS SUB-Q (21:40)
[2024-05-25] VITALS (13 sets, daily range): BP systolic 119–135; BP diastolic 42–48; PULSE 67–78; RESP 16–20; TEMP 36.4–37.3; O2SAT 96–98
[2024-05-25] MEDS: IPRATROPIUM 0.5 MG/ALBUTEROL SULFATE 2.5 MG AMPUL.NEB 3 ML NEBULIZE ×3 (02:04→19:55)
[2024-05-25] MEDS: MEROPENEM 1 GM/NS 100 ML 1 GM/100 ML BAG IVPB ×3 (02:45→21:21)
[2024-05-25] MEDS: LEVOTHYROXINE SODIUM 75 MCG TABLET PO (05:36)
[2024-05-25 07:25] LABS: Alanine Aminotransferase 18 U/L (6-35); Albumin Level 2.6 g/dL (3.5-5.1); Alkaline Phosphatase 103 U/L (38-126); Anion Gap 2 mmol/L (4-12); Aspartate Amino Transferase 16 U/L (14-36); Bilirubin,Total 0.5 mg/dL (0.2-1.3); Blood Urea Nitrogen 12 mg/dL (7-17); Calcium 9.3 mg/dL (8.4-10.2); Carbon Dioxide 28 mmol/L (22-30); Chloride 105 mmol/L (98-107); Estimated CRCL calculation 72 ml/min; Estimated Glomerular Filt Rate > 60; Glucose 158 mg/dL (65-110); Magnesium 2.2 mg/dL (1.6-2.3); Potassium 3.5 mmol/L (3.4-5.0); Sodium 135 mmol/L (137-145)
[2024-05-25 07:31] LABS: Hematocrit 39.1 % (37.0-47.0); Hemoglobin 12.6 g/dL (12.0-15.0); Mean Corpuscular HGB Conc 32.2 g/dl (32-36); Mean Corpuscular Hemoglobin 27.8 pg (26-34); Mean Corpuscular Volume 86.1 fl (80-100); Mean Platelet Volume 11.6 fl (7.4-10.4); Platelet Count Result 304 k/mm3 (150-375); Red Blood Count 4.54 M/mm3 (4.2-5.4); Red Cell Distribution Width 13.2 % (11.5-14.5); White Blood Count 17.7 K/mm3 (4.5-10.0)
[2024-05-25 08:40] LABS: Band Neutrophils Percent 2 % (0-6); Basophils Absolute Manual 0.17 K/mm3 (0.0-0.1); Basophils Percent Manual 1 % (0-1); Eosinophils Absolute Manual 0.17 K/mm3 (0.02-0.50); Eosinophils Percent Manual 1 % (0-4); Lymphocytes Absolute Manual 1.41 K/mm3 (1.1-4.5); Lymphocytes Percent Manual 8 % (18-44); Monocytes Absolute Manual 2.83 K/mm3 (0.1-0.90); Monocytes Percent Manual 16 % (3-9); Neutrophils Absolute Manual 13.09 K/mm3 (1.7-7.2); Neutrophils Percent Manual 72 % (46-73); Total Cells Counted 100
[2024-05-25 08:41] LABS: Platelet Estimate Adequate (Adequate); Schistocytes None Seen
[2024-05-25 08:46] LABS: Glucose Point of Care 157 mg/dl (65-105)
[2024-05-25] MEDS: INSULIN ASPART (*BKC) 100 UNITS/ML 10 UNITS SUB-Q ×3 (09:24→17:41)
[2024-05-25] MEDS: FUROSEMIDE INJ 40 MG/4 ML VIAL IV PUSH (09:26)
[2024-05-25] MEDS: DORZOLAMIDE HCL 2% OPHTH DROPS 2 DROP EACH EYE ×3 (09:26→21:03)
[2024-05-25] MEDS: guaiFENesin 12 HR 600 MG TABCR 1200 MG PO ×2 (09:26→21:03)
[2024-05-25] MEDS: SACCHAROMYCES BOULARDII 250 MG CAPSULE PO ×2 (09:26→17:38)
[2024-05-25] MEDS: MICONAZOLE NITRATE 2% CREAM 30 GM TUBE 1 APPLIC TOPICAL ×2 (09:26→21:03)
[2024-05-25] MEDS: PANTOPRAZOLE 40 MG TABLET PO (09:26)
[2024-05-25] MEDS: FLECAINIDE ACETATE 50 MG TABLET PO ×2 (09:26→21:02)
[2024-05-25] MEDS: APIXABAN 5 MG TABLET PO ×2 (09:26→21:03)
--- NOTE | 2024-05-25 09:51 | P.PNIM_ITS ---
Progress Note: A&P Assessment and Plan (1) UTI (urinary tract infection): Qualifiers: Hematuria presence: with hematuria Urinary tract infection type: acute cystitis Qualified Code(s): N30.01 - Acute cystitis with hematuria Code(s): N39.0 - Urinary tract infection, site not specified Status: Acute Assessment and Plan: patient with history of suprapubic catheter was changed out in the emergency department by Urology daughter had reported hematuria prior to arrival urine is suspicious for UTI patient has had previous urine culture resistant Klebsiella pneumoniae * urology was consulted from the emergency department sign off on this time after successful exchange of suprapubic catheter. * Urine cultures * blood cultures pending * Continue IV hydration. * IV meropenem * Start probiotics to prevent antibiotic induced diarrhea * Monitor for obstructive uropathy and pyelonephritis 05/22/2024 * Urine culture with Proteus mirabilis * oral resistant will continue with IV meropenem 05/24/24 * Today is Day #4 of Meropenem therapy. Continue. * WBC's trending downward. 05/25/24 * currently on Day 5 of Meropenem * WBC 17.7 which is close to patient's baseline (2) Pneumonia: Code(s): J18.9 - Pneumonia, unspecified organism Status: Acute Assessment and Plan: patient with shortness of breath and productive cough chest x-ray could not rule out pneumonia possible viral versus bacterial * currently on IV meropenem * DuoNebs * mucolytics * incentive spirometer * chronically elevated leukocytosis however has trended down to 21.6 was 43.4 on admission * oxygen p.r.n. 05/22/2024 * added PEP therapy * suction p.r.n. * blood cultures no growth today 05/23/2024 * F/U CXR showing bilateral lower lobe PNA * some concern for aspiration with secretions unable to clear * keep HOB at 45 at all times to reduce risk of aspiration * Suction PRN * WBC trending down 05/24/24: * WBC's 18.8 today. Continuing to trend downward. * Continue to monitor and trend labs. * Continue supportive care with suctioning, HOB at 45 degrees * Monitor labs and VS. * Wean oxygen as able to. 05/25/24: * WBC 17.7 * Continue to trend * Continue to wean O2 for saturation greater than 90% * Currently on 3L NC * Continue Duonebs and Mucinex * IS 10x while awake (3) Leukocytosis: Code(s): D72.829 - Elevated white blood cell count, unspecified Status: Acute Assessment and Plan: patient does have history chronic elevated white count initial white count was 4 3.4, was to follow with Hematology outpatient. * could also be secondary to patient's UTI and possible pneumonia * continue to trend down to 21.6 today 05/24/24: * Trend 43.4-->29.9-->21.9-->18.8-->16.1-->18.8 today. * Continue meropenem * Continue to trend labs and monitor VS. 05/25/24: * 17.7 today * Continue Meropenem (4) Congestive heart failure: Code(s): I50.9 - Heart failure, unspecified Status: Acute Assessment and Plan: Acute on Chronic Diastolic heart failure bilateral crackles at lung bases * BNP >2700 * CXR showing pulmonary edema * last Echo 11/2023 Diastolic heart failure grade 1 with LVEF 60-65% * HX of Aortic Stenosis * gave Lasix x 1 IVP will do daily * Heart healthy diet 05/24/24: * Continue Furosemide daily at 40 mg IVP. * Pt's renal function is tolerating the Lasix dose. 05/25/24 * Continue IV Lasix * Will check BNP today and Chest x-ray (5) Hypertension: Code(s): I10 - Essential (primary) hypertension Status: Acute Assessment and Plan: 05/25/24: * Blood pressure ranging 107/51-142/93 * not on any home medications (6) Atrial fibrillation: Qualifiers: Atrial fibrillation type: paroxysmal Qualified Code(s): I48.0 - Paroxysmal atrial fibrillation Code(s): I48.91 - Unspecified atrial fibrillation Status: Acute Assessment and Plan: * Continue Eliquis (7) Type 2 diabetes mellitus: Qualifiers: Diabetes mellitus complication status: without complication Diabetes mellitus 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 HS * moderate dose sliding scale insulin * Mealtime replacement insulin ordered * hold oral diabetic medications * Lantus 22 units ordered @ hs * Diabetic diet * Optimize Mckay inhibitors and statins. * Watch for hypoglycemia/hypoglycemic protocol ordered (8) Hypothyroidism: Code(s): E03.9 - Hypothyroidism, unspecified Status: Acute Assessment and Plan: * resume levothyroxine (9) Sepsis: Code(s): A41.9 - Sepsis, unspecified organism Status: Resolved Assessment and Plan: patient presented with elevated white count, tachypnea, lactic acidosis with possible UTI and pneumonia * IV fluid resuscitation. 30mg/kg No septic shock * IV meropenem based on previous urine culture resistant Klebsiella pneumoniae * Monitor lactic acid levels q6hr. Trending down after IV fluids * Repeat CBC, CMP. * Two sets of blood cultures pending * urine cultures pending * Chest x-ray Possible Pneumonia could not be ruled out * Monitor albumin, monitoring of mental status. RESOLVED Time Spent With Patient Time with patient: 25 - 35 minutes Subjective Date/time seen: 05/25/24 09:51 Interval history: Interval history: This is an 83 year old female who presented to the hospital on 05/20/23 with complaints of SOB and productive cough. She was found to have UTI and urine culture showing proteus mirabilis which is susceptible to meropenem. There is not a good oral option for this patient due to the antibiotic resistance. CXR also showing pneumonia in the right lower lobe. WBC 43.4 on arrival. Subjective: Patient denies any new complaints today. She is alert and oriented x1-2. She is currently on 3L NC and is short of breath at rest. Labs and imaging reviewed. Review of Systems Review of Systems: All systems reviewed & are unremarkable except as noted in HPI and below Constitutional: Constitutional: Reports as per HPI and Reports no additional constitutional complaints Eyes: Eyes: Reports as per HPI and Reports no additional eye complaints ENT: Reports system reviewed and no additional complaints, except as documented and Reports as per HPI Cardiovascular: Cardiovascular: Reports as per HPI and Reports no additional cardiovascular complaints Respiratory: Respiratory: Reports as per HPI and Reports no additional respiratory complaints Gastrointestinal: Gastrointestinal: Reports as per HPI and Reports no additional gastrointestinal complaints Genitourinary: Genitourinary: Reports no additional female genitourinary complaints and Reports as per HPI Musculoskeletal: Musculoskeletal: Reports no additional musculoskeletal complaints and Reports as per HPI Integumentary/Breasts: Skin/Breast: Reports system reviewed and no additional complaints, except as docu and Reports as per HPI Neurologic: Reports system reviewed and no additional complaints, except as documented and Reports as per HPI Psychiatric: Psychiatric: Reports no additional psychiatric complaints and Reports as per HPI Exam Narrative: General: In no acute distress, well nourished Head: atraumatic, no encephalopathy Eyes:PERRLA, sclera clear ENT: moist mucous membranes, nasal passages clear Neck: supple, no JVD, no adenopathy, trachea midline Cardiac: Normal S1 and S2. Murmur noted, No gallops or friction rubs, peripheral pulses intact. Respiratory: Lungs clear to auscultation with mild expiratory wheezing, no other adventitious lung sounds, appears SOB at rest Gastrointestinal: soft, non-distended, non-tender, normoactive bowel sounds. : voiding without difficulty. Extremities: moves all extremities well, mild edema Skin: clean, dry, intact. No wounds or lesions. Neuro: Alert and oriented x1-2, cranial nerves intact, no neuro deficits. Psych: normal mood, normal affect, interactive Objective Data Vital Signs Vital Signs: Vital Signs - 24 hr 05/24/24 14:00 05/24/24 14:02 05/24/24 14:02 Temperature 96.6 F L Pulse Rate 74 75 Respiratory Rate 22 H 20 Blood Pressure 107/51 L Pulse Oximetry 97 94 Oxygen Delivery Nasal Cannula Oxygen Flow Rate 3 Fraction of Inspired Oxygen 32 05/24/24 14:14 05/24/24 20:37 05/24/24 20:45 Temperature Pulse Rate 70 74 78 Respiratory Rate 20 20 20 Blood Pressure Pulse Oximetry Oxygen Delivery Oxygen Flow Rate Fraction of Inspired Oxygen 05/24/24 20:45 05/24/24 21:32 05/24/24 22:00 Temperature 97.9 F Pulse Rate 75 70 Respiratory Rate 18 Blood Pressure 134/46 L Pulse Oximetry 95 97 Oxygen Delivery Nasal Cannula Oxygen Flow Rate 3 Fraction of Inspired Oxygen 05/25/24 02:05 05/25/24 02:15 05/25/24 06:00 Temperature 97.6 F Pulse Rate 72 76 68 Respiratory Rate 20 20 18 Blood Pressure 119/48 L Pulse Oximetry 97 Oxygen Delivery Oxygen Flow Rate Fraction of Inspired Oxygen 05/25/24 06:09 05/25/24 06:19 05/25/24 09:26 Temperature Pulse Rate 78 76 76 Respiratory Rate 20 20 Blood Pressure Pulse Oximetry Oxygen Delivery Oxygen Flow Rate Fraction of Inspired Oxygen 05/25/24 09:34 Temperature Pulse Rate Respiratory Rate Blood Pressure Pulse Oximetry 96 Oxygen Delivery Nasal Cannula Oxygen Flow Rate 3 Fraction of Inspired Oxygen Intake/Output Intake/Output: Intake & Output 05/22/24 05/23/24 05/24/24 05/25/24 23:59 23:59 23:59 23:59 Intake Total 1248.0 2675 1014 0 Output Total 2650 800 1975 225 Balance -1402.0 1875 -961 -225 Meds/Results Medications: Active Medications Generic Name Dose Route Start Last Admin Trade Name Freq PRN Reason Stop Dose Admin Acetaminophen 1,000 mg 05/20/24 01:21 Acetaminophen 500 Mg Tablet PO Q6H PRN PAIN 1-3 Hydrocodone Bitart/Acetaminophen 1 tab 05/19/24 16:32 Hydrocodone/Acetaminophen (*Crx) 5-325 Mg Tablet PO Q4H PRN Pain Rated 4-6 Albuterol 2 puff 05/20/24 01:21 05/21/24 16:43 Albuterol Sulfate (*Sp) Aerosol 1 Puff INHALATION 2 puff PRN PRN Administration wheezing Albuterol/Ipratropium 3 ml 05/19/24 20:00 05/25/24 06:09 Ipratropium 0.5 Mg/Albuterol Sulfate 2.5 Mg Ampul.Neb 3 Ml NEBULIZE 3 ml Q6HRT KATHARINE Administration Apixaban 5 mg 05/20/24 09:00 05/25/24 09:26 Apixaban 5 Mg Tablet PO 5 mg Q12HR KATHARINE Administration Calcium Carbonate 200 mg 05/20/24 01:47 Calcium Carbonate (Tums) 500 Mg (200 Mg Elemental) BY MOUTH BID PRN Indigestion Dextrose 12.5 gm 05/20/24 01:25 Dextrose 50% 25 Gm/50 Ml Syringe IV PUSH PRN PRN Hypoglycemia Protocol Dorzolamide HCl 2 drop 05/20/24 09:00 05/25/24 09:26 Dorzolamide Hcl 2% Ophth Drops EACH EYE 2 drop 0900,1200,2100 KATHARINE Administration Escitalopram Oxalate 10 mg 05/20/24 21:00 05/24/24 21:32 Escitalopram Oxalate 10 Mg Tablet PO 10 mg QHS KATHARINE Administration Ferrous Sulfate 325 mg 05/20/24 12:00 05/24/24 17:14 Ferrous Sulfate [address] BY MOUTH 325 mg 1200,1700 KATHARINE Administration Flecainide Acetate 50 mg 05/20/24 09:00 05/25/24 09:26 Flecainide Acetate 50 Mg Tablet PO 50 mg Q12HR KATHARINE Administration Furosemide 40 mg 05/24/24 09:00 05/25/24 09:26 Furosemide Inj 40 Mg/4 Ml Vial IV PUSH 40 mg DAILY KATHARINE Administration Glucagon 1 mg 05/20/24 01:25 Glucagon For Inj 1 Mg Vial IM PRN PRN Hypoglycemia Protocol Glucose 15 gm 05/20/24 01:25 Glucose Oral Gel 15 Gm Of Glucse In 37.5 Gm Tube PO PRN PRN Hypoglycemia Protocol Guaifenesin 1,200 mg 05/21/24 21:00 05/25/24 09:26 Guaifenesin 12 Hr 600 Mg Tabcr PO 1,200 mg Q12HR KATHARINE Administration Hyoscyamine 0.125 mg 05/20/24 01:21 Hyoscyamine Sulfate 0.125 Mg Tablet PO BID PRN cramping Dextrose 1,000 mls @ 100 mls/hr 05/20/24 01:25 Dextrose 5% 1,000 Ml IVPB PRN PRN Hypoglycemia Protocol Meropenem 1 gm in 100 mls @ 200 mls/hr 05/21/24 11:00 05/25/24 02:45 IVPB 05/28/24 03:29 200 mls/hr Q8H KATHARINE Administration Insulin Aspart 3 - 6 units 05/20/24 08:00 05/25/24 09:13 Insulin Aspart (*Bkc) 100 Units/Ml SUB-Q Not Given TIDWM KATHARINE Protocol Insulin Aspart 10 units 05/25/24 08:00 05/25/24 09:24 Insulin Aspart (*Bkc) 100 Units/Ml SUB-Q 10 units TIDWM KATHARINE Administration Insulin Glargine 25 units 05/20/24 01:30 05/24/24 21:40 Insulin Glargine (*Bkc) 100 Units/Ml SUB-Q 25 units HS KATHARINE Administration Levothyroxine Sodium 75 mcg 05/20/24 06:30 05/25/24 05:36 Levothyroxine Sodium 75 Mcg Tablet PO 75 mcg [id number] [facility] Administration Levothyroxine Sodium 150 mcg 05/23/24 06:30 05/23/24 05:26 Levothyroxine Sodium 150 Mcg Tablet PO 150 mcg [id number]@0630 [facility] Administration Loratadine 10 mg 05/21/24 21:00 05/24/24 21:31 Loratadine 10 Mg Tablet PO 10 mg QHS [facility] Administration Melatonin 5 mg 05/20/24 21:00 05/24/24 21:31 Melatonin 5 Mg Tablet PO 5 mg HS [facility] Administration Miconazole Nitrate 1 applic 05/22/24 21:00 05/25/24 09:26 Miconazole Nitrate 2% Cream 30 Gm Tube TOPICAL 1 applic Q12HR [facility] Administration Nitroglycerin 0.4 mg 05/20/24 01:21 Nitroglycerin Sl 0.4 Mg Tablet SUBLINGUAL PRN PRN Chest Pain Nystatin 5 ml 05/20/24 09:00 05/25/24 09:27 Nystatin 100,000 Units/Ml Susp 5 Ml Oral.Susp PO Not Given QID [facility] Ondansetron HCl 4 mg 05/21/24 10:18 05/21/24 17:35 Ondansetron Inj 4 Mg/2 Ml Vial IV PUSH 4 mg Q6H PRN Administration Nausea And Vomiting Pantoprazole Sodium 40 mg 05/20/24 09:00 05/25/24 09:26 Pantoprazole 40 Mg Tablet PO 40 mg DAILY [facility] Administration Rosuvastatin Calcium 10 mg 05/20/24 21:00 05/24/24 21:34 Rosuvastatin 10 Mg Tablet PO 10 mg HS [facility] Administration Saccharomyces Boulardii 250 mg 05/20/24 09:00 05/25/24 09:26 Saccharomyces Boulardii 250 Mg Capsule PO 250 mg BID [facility] Administration Radiology Results: ITS Impressions Chest X-Ray 05/21/24 17:58 IMPRESSION: Bilateral pneumonia. Underlying pulmonary edema is not excluded Labs Labs: Laboratory Results - last 24 hr 05/24/24 05/24/24 05/24/24 09:19 11:46 16:41 WBC 18.8 H RBC 4.72 Hgb 13.4 Hct 39.6 MCV 83.9 MCH 28.4 MCHC 33.8 RDW 13.2 Plt Count 264 MPV 11.1 H Immature Gran % (Auto) Not Reportable Neut % (Auto) Not Reportable Lymph % (Auto) Not Reportable [place] % (Auto) Not Reportable Eos % (Auto) Not Reportable Baso % (Auto) Not Reportable Lymph # (Auto) Not Reportable [place] # (Auto) Not Reportable Eos # (Auto) Not Reportable Baso # (Auto) Not Reportable Abs Immat Gran (auto) Not Reportable Absolute Neuts (auto) Not Reportable Absolute Nucleated RBC Not Reportable Total Counted 100 Neutrophils % (Manual) 69 Band Neutrophils % 3 Lymphocytes % (Manual) 12 L Monocytes % (Manual) 14 H Eosinophils % (Manual) 2 Basophils % (Manual) Nucleated RBC % Not Reportable Abs Neuts (Manual) 13.53 H Abs Lymphs (Manual) 2.25 Abs Monocytes (Manual) 2.63 H Absolute Eos (Manual) 0.37 Abs Basophils (Manual) Platelet Estimate Adequate Schistocytes None seen Sodium Potassium Chloride Carbon Dioxide Anion Gap BUN Creatinine Estim Creat Clear Calc Estimated GFR Glucose POC Capillary Glucose 248 H 287 H Calcium Magnesium Total Bilirubin AST ALT Alkaline Phosphatase Total Protein Albumin 05/24/24 05/25/24 05/25/24 19:46 06:57 08:44 WBC 17.7 H RBC 4.54 Hgb 12.6 Hct 39.1 MCV 86.1 MCH 27.8 MCHC 32.2 RDW 13.2 Plt Count 304 MPV 11.6 H Immature Gran % (Auto) Not Reportable Neut % (Auto) Not Reportable Lymph % (Auto) Not Reportable [place] % (Auto) Not Reportable Eos % (Auto) Not Reportable Baso % (Auto) Not Reportable Lymph # (Auto) Not Reportable [place] # (Auto) Not Reportable Eos # (Auto) Not Reportable Baso # (Auto) Not Reportable Abs Immat Gran (auto) Not Reportable Absolute Neuts (auto) Not Reportable Absolute Nucleated RBC Not Reportable Total Counted 100 Neutrophils % (Manual) 72 Band Neutrophils % 2 Lymphocytes % (Manual) 8 L Monocytes % (Manual) 16 H Eosinophils % (Manual) 1 Basophils % (Manual) 1 Nucleated RBC % Not Reportable Abs Neuts (Manual) 13.09 H Abs Lymphs (Manual) 1.41 Abs Monocytes (Manual) 2.83 H Absolute Eos (Manual) 0.17 Abs Basophils (Manual) 0.17 H Platelet Estimate Adequate Schistocytes None seen Sodium 135 L Potassium 3.5 Chloride 105 Carbon Dioxide 28 Anion Gap 2 L BUN 12 Creatinine 0.53 L Estim Creat Clear Calc 72 Estimated GFR > 60 Glucose 158 H POC Capillary Glucose 281 H 157 H Calcium 9.3 Magnesium 2.2 Total Bilirubin 0.5 AST 16 ALT 18 Alkaline Phosphatase 103 Total Protein 6.0 L Albumin 2.6 L Quality VTE Prophylaxis VTE prophylaxis: pharmacologic ordered
[2024-05-25 12:04] LABS: Glucose Point of Care 299 mg/dl (65-105)
[2024-05-25] MEDS: FERROUS SULFATE 325 MG TABLET DR BY MOUTH ×2 (12:26→17:41)
[2024-05-25] MEDS: INSULIN ASPART (*BKC) 100 UNITS/ML SUB-Q (13:16)
[2024-05-25] MEDS: ACETIC ACID 0.25% IRRIG SOLN 500 ML 30 ML IRRIGATION (16:08)
[2024-05-25 17:09] LABS: NT Pro B Type Natriuretic Pept 1120 pg/mL (19.9-100)
[2024-05-25 17:45] LABS: Glucose Point of Care 191 mg/dl (65-105)
[2024-05-25 20:21] LABS: Glucose Point of Care 223 mg/dl (65-105)
[2024-05-25] MEDS: LORATADINE 10 MG TABLET PO (21:02)
[2024-05-25] MEDS: MELATONIN 5 MG TABLET PO (21:02)
[2024-05-25] MEDS: ROSUVASTATIN 10 MG TABLET PO (21:02)
[2024-05-25] MEDS: ESCITALOPRAM OXALATE 10 MG TABLET PO (21:03)
[2024-05-25] MEDS: NYSTATIN 100,000 UNITS/ML SUSP 5 ML ORAL.SUSP PO (21:03)
[2024-05-25] MEDS: INSULIN GLARGINE (*BKC) 100 UNITS/ML 25 UNITS SUB-Q (21:03)
[2024-05-26] VITALS (14 sets, daily range): BP systolic 117–128; BP diastolic 43–57; PULSE 66–77; RESP 18–22; TEMP 36.4–36.6; O2SAT 93–97
[2024-05-26] MEDS: IPRATROPIUM 0.5 MG/ALBUTEROL SULFATE 2.5 MG AMPUL.NEB 3 ML NEBULIZE ×4 (03:03→20:49)
[2024-05-26] MEDS: MEROPENEM 1 GM/NS 100 ML 1 GM/100 ML BAG IVPB ×3 (03:12→18:52)
[2024-05-26] MEDS: LEVOTHYROXINE SODIUM 75 MCG TABLET PO (05:56)
[2024-05-26 06:54] LABS: Basophils Absolute Auto 0.1 K/mm3 (0.0-0.1); Basophils Percent Auto 0.7 % (0.2-1.2); Eosinophils Absolute Auto 0.6 K/mm3 (0-0.3); Eosinophils Percent Auto 3.6 % (0-4.4); Hematocrit 38.4 % (37.0-47.0); Hemoglobin 12.3 g/dL (12.0-15.0); Immature Granulocyte Absolute 0.29 K/mm3 (0.00-0.031); Immature Granulocyte Percent A 1.7 % (0-0.5); Lymphocytes Absolute Auto 1.95 K/mm3 (0.9-3.2); Lymphocytes Percent Auto 11.7 % (18.3-44.2); Mean Corpuscular Hemoglobin 27.8 pg (26-34); Mean Corpuscular Volume 86.9 fl (80-100); Mean Platelet Volume 11.3 fl (7.4-10.4); Monocytes Absolute Auto 3.1 K/mm3 (0.1-0.6); Monocytes Percent Auto 18.4 % (2.6-8.5); Neutrophils Absolute Auto 10.7 K/mm3 (1.3-6.7); Neutrophils Percent Auto 63.9 % (45.5-73.1); Platelet Count Result 330 k/mm3 (150-375); Red Blood Count 4.42 M/mm3 (4.2-5.4); Red Cell Distribution Width 13.2 % (11.5-14.5); White Blood Count 16.7 K/mm3 (4.5-10.0)
[2024-05-26 07:04] LABS: Alanine Aminotransferase 15 U/L (6-35); Albumin Level 2.6 g/dL (3.5-5.1); Alkaline Phosphatase 106 U/L (38-126); Anion Gap 1 mmol/L (4-12); Aspartate Amino Transferase 15 U/L (14-36); Bilirubin,Total 0.5 mg/dL (0.2-1.3); Blood Urea Nitrogen 10 mg/dL (7-17); Calcium 9.2 mg/dL (8.4-10.2); Carbon Dioxide 26 mmol/L (22-30); Chloride 105 mmol/L (98-107); Estimated CRCL calculation 72 ml/min; Estimated Glomerular Filt Rate > 60; Glucose 142 mg/dL (65-110); Magnesium 2.3 mg/dL (1.6-2.3); Potassium 3.6 mmol/L (3.4-5.0); Sodium 132 mmol/L (137-145)
[2024-05-26 07:52] LABS: Glucose Point of Care 147 mg/dl (65-105)
--- NOTE | 2024-05-26 08:05 | P.PNIM_ITS ---
Progress Note: A&P Assessment and Plan (1) UTI (urinary tract infection): Qualifiers: Hematuria presence: with hematuria Urinary tract infection type: acute cystitis Qualified Code(s): N30.01 - Acute cystitis with hematuria Code(s): N39.0 - Urinary tract infection, site not specified Status: Acute Assessment and Plan: patient with history of suprapubic catheter was changed out in the emergency department by Urology daughter had reported hematuria prior to arrival urine is suspicious for UTI patient has had previous urine culture resistant Klebsiella pneumoniae * urology was consulted from the emergency department sign off on this time after successful exchange of suprapubic catheter. * Urine cultures * blood cultures pending * Continue IV hydration. * IV meropenem * Start probiotics to prevent antibiotic induced diarrhea * Monitor for obstructive uropathy and pyelonephritis 05/22/2024 * Urine culture with Proteus mirabilis * oral resistant will continue with IV meropenem 05/24/24 * Today is Day #4 of Meropenem therapy. Continue. * WBC's trending downward. 05/25/24 * currently on Day 5 of Meropenem * WBC 17.7 which is close to patient's baseline 05/26/24 * Continue Meropenem * WBC 16.7 (2) Pneumonia: Code(s): J18.9 - Pneumonia, unspecified organism Status: Acute Assessment and Plan: patient with shortness of breath and productive cough chest x-ray could not rule out pneumonia possible viral versus bacterial * currently on IV meropenem * DuoNebs * mucolytics * incentive spirometer * chronically elevated leukocytosis however has trended down to 21.6 was 43.4 on admission * oxygen p.r.n. 05/22/2024 * added PEP therapy * suction p.r.n. * blood cultures no growth today 05/23/2024 * F/U CXR showing bilateral lower lobe PNA * some concern for aspiration with secretions unable to clear * keep HOB at 45 at all times to reduce risk of aspiration * Suction PRN * WBC trending down 05/24/24: * WBC's 18.8 today. Continuing to trend downward. * Continue to monitor and trend labs. * Continue supportive care with suctioning, HOB at 45 degrees * Monitor labs and VS. * Wean oxygen as able to. 05/25/24: * WBC 17.7 * Continue to trend * Continue to wean O2 for saturation greater than 90% * Currently on 3L NC * Continue Duonebs and Mucinex * IS 10x while awake 05/26/24 * WBC 16.7 * Continue with current treatment plan (3) Leukocytosis: Code(s): D72.829 - Elevated white blood cell count, unspecified Status: Acute Assessment and Plan: patient does have history chronic elevated white count initial white count was 4 3.4, was to follow with Hematology outpatient. * could also be secondary to patient's UTI and possible pneumonia * continue to trend down to 21.6 today 05/24/24: * Trend 43.4-->29.9-->21.9-->18.8-->16.1-->18.8 today. * Continue meropenem * Continue to trend labs and monitor VS. 05/25/24: * 17.7 today * Continue Meropenem 05/26/24 * WBC 16.7 * Continue Meropenem (4) Congestive heart failure: Code(s): I50.9 - Heart failure, unspecified Status: Acute Assessment and Plan: Acute on Chronic Diastolic heart failure bilateral crackles at lung bases * BNP >2700 * CXR showing pulmonary edema * last Echo 11/2023 Diastolic heart failure grade 1 with LVEF 60-65% * HX of Aortic Stenosis * gave Lasix x 1 IVP will do daily * Heart healthy diet 05/24/24: * Continue Furosemide daily at 40 mg IVP. * Pt's renal function is tolerating the Lasix dose. 05/25/24 * Continue IV Lasix * Will check BNP today and Chest x-ray 05/26/24 * Lasix 40 mg BID * BNP 1120 (5) Hypertension: Code(s): I10 - Essential (primary) hypertension Status: Acute Assessment and Plan: 05/25/24: * Blood pressure ranging 107/51-142/93 * not on any home medications (6) Atrial fibrillation: Qualifiers: Atrial fibrillation type: paroxysmal Qualified Code(s): I48.0 - Paroxysmal atrial fibrillation Code(s): I48.91 - Unspecified atrial fibrillation Status: Acute Assessment and Plan: * Continue Eliquis (7) Type 2 diabetes mellitus: Qualifiers: Diabetes mellitus complication status: without complication 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 HS * moderate dose sliding scale insulin * Mealtime replacement insulin ordered * hold oral diabetic medications * Lantus 22 units ordered @ hs * Diabetic diet * Optimize Mckay inhibitors and statins. * Watch for hypoglycemia/hypoglycemic protocol ordered (8) Hypothyroidism: Code(s): E03.9 - Hypothyroidism, unspecified Status: Acute Assessment and Plan: * resume levothyroxine (9) Sepsis: Code(s): A41.9 - Sepsis, unspecified organism Status: Resolved Assessment and Plan: patient presented with elevated white count, tachypnea, lactic acidosis with possible UTI and pneumonia * IV fluid resuscitation. 30mg/kg No septic shock * IV meropenem based on previous urine culture resistant Klebsiella pneumoniae * Monitor lactic acid levels q6hr. Trending down after IV fluids * Repeat CBC, CMP. * Two sets of blood cultures pending * urine cultures pending * Chest x-ray Possible Pneumonia could not be ruled out * Monitor albumin, monitoring of mental status. RESOLVED Time Spent With Patient Time with patient: 25 - 35 minutes Subjective Date/time seen: 05/26/24 08:05 Interval history: Interval history: This is an 83 year old female who presented to the hospital on 05/20/23 with complaints of SOB and productive cough. She was found to have UTI and urine culture showing proteus mirabilis which is susceptible to meropenem. There is not a good oral option for this patient due to the antibiotic resistance. CXR also showing pneumonia in the right lower lobe. WBC 43.4 on arrival. Subjective: Patient denies any new complaints today. She is alert to voice and oriented x1- 2. She is still on 3L NC. Labs and imaging reviewed. Review of Systems Review of Systems: All systems reviewed & are unremarkable except as noted in HPI and below Constitutional: Constitutional: Reports as per HPI and Reports no additional constitutional complaints Eyes: Eyes: Reports as per HPI and Reports no additional eye complaints ENT: Reports system reviewed and no additional complaints, except as documented and Reports as per HPI Cardiovascular: Cardiovascular: Reports as per HPI and Reports no additional cardiovascular complaints Respiratory: Respiratory: Reports as per HPI and Reports no additional respiratory complaints Gastrointestinal: Gastrointestinal: Reports as per HPI and Reports no additional gastrointestinal complaints Genitourinary: Genitourinary: Reports no additional female genitourinary complaints and Reports as per HPI Musculoskeletal: Musculoskeletal: Reports no additional musculoskeletal complaints and Reports as per HPI Integumentary/Breasts: Skin/Breast: Reports system reviewed and no additional complaints, except as docu and Reports as per HPI Neurologic: Reports system reviewed and no additional complaints, except as documented and Reports as per HPI Psychiatric: Psychiatric: Reports no additional psychiatric complaints and Reports as per HPI Exam Narrative: General: In no acute distress, well nourished Cardiac: Normal S1 and S2. Murmur noted, No gallops or friction rubs, peripheral pulses intact. Respiratory: Lungs clear to auscultation, bibasilar crackles, no other adventitious lung sounds,currently on 3L NC Gastrointestinal: soft, non-distended, non-tender, normoactive bowel sounds. : voiding without difficulty. Neuro: Alert and oriented x1-2 Objective Data Vital Signs Vital Signs: Vital Signs - 24 hr 05/25/24 09:26 05/25/24 09:34 05/25/24 14:00 Temperature 99.1 F Pulse Rate 76 71 Respiratory Rate 16 Blood Pressure 124/45 L Pulse Oximetry 96 96 Oxygen Delivery Nasal Cannula Oxygen Flow Rate 3 Fraction of Inspired Oxygen 05/25/24 19:56 05/25/24 19:56 05/25/24 20:05 Temperature Pulse Rate 73 72 Respiratory Rate 20 18 Blood Pressure Pulse Oximetry 98 Oxygen Delivery Nasal Cannula Oxygen Flow Rate 3 Fraction of Inspired Oxygen 05/25/24 21:00 05/25/24 21:02 05/25/24 22:00 Temperature 97.7 F Pulse Rate 67 67 76 Respiratory Rate 18 20 Blood Pressure 135/42 L Pulse Oximetry 98 97 Oxygen Delivery Nasal Cannula Oxygen Flow Rate 3 Fraction of Inspired Oxygen 32 05/26/24 03:03 05/26/24 03:12 05/26/24 06:00 Temperature 97.8 F Pulse Rate 66 70 69 Respiratory Rate 18 18 20 Blood Pressure 128/43 L Pulse Oximetry 97 Oxygen Delivery Oxygen Flow Rate Fraction of Inspired Oxygen 05/26/24 07:00 Temperature Pulse Rate 76 Respiratory Rate 18 Blood Pressure Pulse Oximetry 97 Oxygen Delivery Nasal Cannula Oxygen Flow Rate 3 Fraction of Inspired Oxygen Intake/Output Intake/Output: Intake & Output 05/23/24 05/24/24 05/25/24 05/26/24 23:59 23:59 23:59 23:59 Intake Total 2675 1014 2020 0 Output Total 800 1975 1765 600 Balance 1875 -961 255 -600 Meds/Results Medications: Active Medications Generic Name Dose Route Start Last Admin Trade Name Freq PRN Reason Stop Dose Admin Acetaminophen 1,000 mg 05/20/24 01:21 Acetaminophen 500 Mg Tablet PO Q6H PRN PAIN 1-3 Hydrocodone Bitart/Acetaminophen 1 tab 05/19/24 16:32 Hydrocodone/Acetaminophen (*Crx) 5-325 Mg Tablet PO Q4H PRN Pain Rated 4-6 Acetic Acid 30 ml 05/25/24 13:50 05/25/24 16:08 Acetic Acid 0.25% Irrig Soln 500 Ml IRRIGATION 30 ml DAILY KATHARINE Administration Albuterol 2 puff 05/20/24 01:21 05/21/24 16:43 Albuterol Sulfate (*Sp) Aerosol 1 Puff INHALATION 2 puff PRN PRN Administration wheezing Albuterol/Ipratropium 3 ml 05/19/24 20:00 05/26/24 07:00 Ipratropium 0.5 Mg/Albuterol Sulfate 2.5 Mg Ampul.Neb 3 Ml NEBULIZE 3 ml Q6HRT KATHARINE Administration Apixaban 5 mg 05/20/24 09:00 05/25/24 21:03 Apixaban 5 Mg Tablet PO 5 mg Q12HR KATHARINE Administration Calcium Carbonate 200 mg 05/20/24 01:47 Calcium Carbonate (Tums) 500 Mg (200 Mg Elemental) BY MOUTH BID PRN Indigestion Dextrose 12.5 gm 05/20/24 01:25 Dextrose 50% 25 Gm/50 Ml Syringe IV PUSH PRN PRN Hypoglycemia Protocol Dorzolamide HCl 2 drop 05/20/24 09:00 05/25/24 21:03 Dorzolamide Hcl 2% Ophth Drops EACH EYE 2 drop 0900,1200,2100 KATHARINE Administration Escitalopram Oxalate 10 mg 05/20/24 21:00 05/25/24 21:03 Escitalopram Oxalate 10 Mg Tablet PO 10 mg QHS KATHARINE Administration Ferrous Sulfate 325 mg 05/20/24 12:00 05/25/24 17:41 Ferrous Sulfate [address] BY MOUTH 325 mg 1200,1700 KATHARINE Administration Flecainide Acetate 50 mg 05/20/24 09:00 05/25/24 21:02 Flecainide Acetate 50 Mg Tablet PO 50 mg Q12HR KATHARINE Administration Furosemide 40 mg 05/24/24 09:00 05/25/24 09:26 Furosemide Inj 40 Mg/4 Ml Vial IV PUSH 40 mg DAILY KATHARINE Administration Glucagon 1 mg 05/20/24 01:25 Glucagon For Inj 1 Mg Vial IM PRN PRN Hypoglycemia Protocol Glucose 15 gm 05/20/24 01:25 Glucose Oral Gel 15 Gm Of Glucse In 37.5 Gm Tube PO PRN PRN Hypoglycemia Protocol Guaifenesin 1,200 mg 05/21/24 21:00 05/25/24 21:03 Guaifenesin 12 Hr 600 Mg Tabcr PO 1,200 mg Q12HR KATHARINE Administration Hyoscyamine 0.125 mg 05/20/24 01:21 Hyoscyamine Sulfate 0.125 Mg Tablet PO BID PRN cramping Dextrose 1,000 mls @ 100 mls/hr 05/20/24 01:25 Dextrose 5% 1,000 Ml IVPB PRN PRN Hypoglycemia Protocol Meropenem 1 gm in 100 mls @ 200 mls/hr 05/21/24 11:00 05/26/24 03:12 IVPB 05/28/24 03:29 200 mls/hr Q8H KATHARINE Administration Insulin Aspart 3 - 6 units 05/20/24 08:00 05/25/24 17:42 Insulin Aspart (*Bkc) 100 Units/Ml SUB-Q Not Given TIDWM KATHARINE Protocol Insulin Aspart 10 units 05/25/24 08:00 05/25/24 17:41 Insulin Aspart (*Bkc) 100 Units/Ml SUB-Q 10 units TIDWM KATHARINE Administration Insulin Glargine 25 units 05/20/24 01:30 05/25/24 21:03 Insulin Glargine (*Bkc) 100 Units/Ml SUB-Q 25 units HS KATHARINE Administration Levothyroxine Sodium 75 mcg 05/20/24 06:30 05/26/24 05:56 Levothyroxine Sodium 75 Mcg Tablet PO 75 mcg [id number] KATHARINE Administration Levothyroxine Sodium 150 mcg 05/23/24 06:30 05/23/24 05:26 Levothyroxine Sodium 150 Mcg Tablet PO 150 mcg [id number] KATHARINE Administration Loratadine 10 mg 05/21/24 21:00 05/25/24 21:02 Loratadine 10 Mg Tablet PO 10 mg QHS KATHARINE Administration Melatonin 5 mg 05/20/24 21:00 05/25/24 21:02 Melatonin 5 Mg Tablet PO 5 mg HS KATHARINE Administration Miconazole Nitrate 1 applic 05/22/24 21:00 05/25/24 21:03 Miconazole Nitrate 2% Cream 30 Gm Tube TOPICAL 1 applic Q12HR KATHARINE Administration Nitroglycerin 0.4 mg 05/20/24 01:21 Nitroglycerin Sl 0.4 Mg Tablet SUBLINGUAL PRN PRN Chest Pain Nystatin 5 ml 05/20/24 09:00 05/25/24 21:03 Nystatin 100,000 Units/Ml Susp 5 Ml Oral.Susp PO 5 ml QID KATHARINE Administration Ondansetron HCl 4 mg 05/21/24 10:18 05/21/24 17:35 Ondansetron Inj 4 Mg/2 Ml Vial IV PUSH 4 mg Q6H PRN Administration Nausea And Vomiting Pantoprazole Sodium 40 mg 05/20/24 09:00 05/25/24 09:26 Pantoprazole 40 Mg Tablet PO 40 mg DAILY KATHARINE Administration Rosuvastatin Calcium 10 mg 05/20/24 21:00 05/25/24 21:02 Rosuvastatin 10 Mg Tablet PO 10 mg HS KATHARINE Administration Saccharomyces Boulardii 250 mg 05/20/24 09:00 05/25/24 17:38 Saccharomyces Boulardii 250 Mg Capsule PO 250 mg BID KATHARINE Administration Radiology Results: ITS Impressions Chest X-Ray 05/25/24 15:59 Impression: 1: Diffuse bilateral airspace disease, most likely pulmonary edema. Pneumonia less favored. Labs Labs: Laboratory Results - last 24 hr 05/25/24 05/25/24 05/25/24 06:57 08:44 11:49 WBC 17.7 H RBC 4.54 Hgb 12.6 Hct 39.1 MCV 86.1 MCH 27.8 MCHC 32.2 RDW 13.2 Plt Count 304 MPV 11.6 H Immature Gran % (Auto) Not Reportable Neut % (Auto) Not Reportable Lymph % (Auto) Not Reportable [place] % (Auto) Not Reportable Eos % (Auto) Not Reportable Baso % (Auto) Not Reportable Lymph # (Auto) Not Reportable [place] # (Auto) Not Reportable Eos # (Auto) Not Reportable Baso # (Auto) Not Reportable Abs Immat Gran (auto) Not Reportable Absolute Neuts (auto) Not Reportable Absolute Nucleated RBC Not Reportable Total Counted 100 Neutrophils % (Manual) 72 Band Neutrophils % 2 Lymphocytes % (Manual) 8 L Monocytes % (Manual) 16 H Eosinophils % (Manual) 1 Basophils % (Manual) 1 Nucleated RBC % Not Reportable Abs Neuts (Manual) 13.09 H Abs Lymphs (Manual) 1.41 Abs Monocytes (Manual) 2.83 H Absolute Eos (Manual) 0.17 Abs Basophils (Manual) 0.17 H Platelet Estimate Adequate Schistocytes None seen Sodium Potassium Chloride Carbon Dioxide Anion Gap BUN Creatinine Estim Creat Clear Calc Estimated GFR Glucose POC Capillary Glucose 157 H 299 H Calcium Magnesium Total Bilirubin AST ALT Alkaline Phosphatase NT-Pro-B Natriuret Pep Total Protein Albumin 05/25/24 05/25/24 05/25/24 15:51 17:42 19:46 WBC RBC Hgb Hct MCV MCH MCHC RDW Plt Count MPV Immature Gran % (Auto) Neut % (Auto) Lymph % (Auto) [place] % (Auto) Eos % (Auto) Baso % (Auto) Lymph # (Auto) [place] # (Auto) Eos # (Auto) Baso # (Auto) Abs Immat Gran (auto) Absolute Neuts (auto) Absolute Nucleated RBC Total Counted Neutrophils % (Manual) Band Neutrophils % Lymphocytes % (Manual) Monocytes % (Manual) Eosinophils % (Manual) Basophils % (Manual) Nucleated RBC % Abs Neuts (Manual) Abs Lymphs (Manual) Abs Monocytes (Manual) Absolute Eos (Manual) Abs Basophils (Manual) Platelet Estimate Schistocytes Sodium Potassium Chloride Carbon Dioxide Anion Gap BUN Creatinine Estim Creat Clear Calc Estimated GFR Glucose POC Capillary Glucose 191 H 223 H Calcium Magnesium Total Bilirubin AST ALT Alkaline Phosphatase NT-Pro-B Natriuret Pep 1120 H Total Protein Albumin 05/26/24 05/26/24 06:28 07:49 WBC 16.7 H RBC 4.42 Hgb 12.3 Hct 38.4 MCV 86.9 MCH 27.8 MCHC 32.0 RDW 13.2 Plt Count 330 MPV 11.3 H Immature Gran % (Auto) 1.7 H Neut % (Auto) 63.9 Lymph % (Auto) 11.7 L [place] % (Auto) 18.4 H Eos % (Auto) 3.6 Baso % (Auto) 0.7 Lymph # (Auto) 1.95 [place] # (Auto) 3.1 H Eos # (Auto) 0.6 H Baso # (Auto) 0.1 Abs Immat Gran (auto) 0.29 H Absolute Neuts (auto) 10.7 H Absolute Nucleated RBC 0.000 Total Counted Neutrophils % (Manual) Band Neutrophils % Lymphocytes % (Manual) Monocytes % (Manual) Eosinophils % (Manual) Basophils % (Manual) Nucleated RBC % 0.0 Abs Neuts (Manual) Abs Lymphs (Manual) Abs Monocytes (Manual) Absolute Eos (Manual) Abs Basophils (Manual) Platelet Estimate Schistocytes Sodium 132 L Potassium 3.6 Chloride 105 Carbon Dioxide 26 Anion Gap 1 L BUN 10 Creatinine 0.53 L Estim Creat Clear Calc 72 Estimated GFR > 60 Glucose 142 H POC Capillary Glucose 147 H Calcium 9.2 Magnesium 2.3 Total Bilirubin 0.5 AST 15 ALT 15 Alkaline Phosphatase 106 NT-Pro-B Natriuret Pep Total Protein 6.0 L Albumin 2.6 L Quality VTE Prophylaxis VTE prophylaxis: pharmacologic ordered
[2024-05-26] MEDS: NYSTATIN 100,000 UNITS/ML SUSP 5 ML ORAL.SUSP PO ×4 (08:40→20:33)
[2024-05-26] MEDS: FUROSEMIDE INJ 40 MG/4 ML VIAL IV PUSH ×2 (08:40→16:27)
[2024-05-26] MEDS: guaiFENesin 12 HR 600 MG TABCR 1200 MG PO ×2 (08:41→20:33)
[2024-05-26] MEDS: MICONAZOLE NITRATE 2% CREAM 30 GM TUBE 1 APPLIC TOPICAL ×2 (08:41→21:44)
[2024-05-26] MEDS: APIXABAN 5 MG TABLET PO ×2 (08:41→20:34)
[2024-05-26] MEDS: PANTOPRAZOLE 40 MG TABLET PO (08:41)
[2024-05-26] MEDS: FLECAINIDE ACETATE 50 MG TABLET PO ×2 (08:41→20:33)
[2024-05-26] MEDS: SACCHAROMYCES BOULARDII 250 MG CAPSULE PO ×2 (08:41→16:27)
[2024-05-26] MEDS: DORZOLAMIDE HCL 2% OPHTH DROPS 2 DROP EACH EYE ×3 (08:41→20:34)
[2024-05-26] MEDS: ACETIC ACID 0.25% IRRIG SOLN 500 ML 30 ML IRRIGATION (09:25)
[2024-05-26] MEDS: INSULIN ASPART (*BKC) 100 UNITS/ML 10 UNITS SUB-Q ×3 (09:26→17:13)
[2024-05-26 11:25] LABS: Glucose Point of Care 264 mg/dl (65-105)
[2024-05-26] MEDS: INSULIN ASPART (*BKC) 100 UNITS/ML SUB-Q (11:27)
[2024-05-26] MEDS: FERROUS SULFATE 325 MG TABLET DR BY MOUTH ×2 (11:32→16:27)
--- OUTSIDE RECORDS SUMMARY | 2024-05-26 12:32 | XMS_ITS | Clinical Summary ---
Author Organization [facility] Address [address] [place] [address] Care Team Providers Care Fitter Up Name Role Phone Etienne Florez MD Unavailable [phone] Enrique Gonzalez MD Unavailable [phone] Nelson Ross MD Unavailable [phone] Laz Valencia MD Unavailable Russell Moran MD Unavailable Yuliya Ibarra MD Unavailable [phone] Phuong Callejas DPM Unavailable Sy Barrientos MD Unavailable Russell Moran MD Unavailable [phone] Rico Gasca MD Unavailable Elle Landaverde MD Unavailable Kirk Truong MD Unavailable Shira Love DO Unavailable [phone] Sara Schultz MD Unavailable [phone] Hussain Ray MD Unavailable [phone] Elizabeth Car MD Primary Care Provider + Source Comments [facility],non-owned Affiliates and Associated Physician Practices is amultiple site organization consisting of ambulatory clinics and hospital sitesin [place], [place], [place] and [place]. This disclosure is being madepursuant to the Care Everywhere program and may not contain all information available regarding this patient. Last updated 18.[facility] Allergies Active Allergy Reactions Criticality Noted Date Comments Advair Diskus 01/07/2011 YEAS INFECTION Donepezil Other 01/07/2011 I dont remember Piper Longum Unknown Diltiazem Swelling 01/07/2011 Patient takes verapamil as home med Fluticasone Diarrhea Metformin Diarrhea Low 11/27/2015 Salmeterol Diarrhea Sotalol Other 09/08/2017 Hair loss Medications * Be aware that medications may not be up to date on this document. Alwaysverify current medications with the patient. Medication Sig Dispensed Refills Start Date End Date Status multivitamin with iron (ONE A DAY WITH IRON) tablet Take 1 Tab by mouth once daily. Active SITagliptin (JANUVIA) 100 MG tablet Take 100 mg by mouth once daily Active PROLENSA 0.07 % opthalmic solution Instill 1 drop into right eye once daily 2 02/25/2019 Active spironolactone (ALDACTONE) 25 MG tablet Take 25 mg by mouth once daily Active dorzolamide (TRUSOPT) 2 % ophthalmic solution Instill 1 drop into both eyes 2 times daily 11/16/2019 Active vitamin D3 (CHOLECALCIFEROL) 25 MCG (1000 UNITS) tablet Take 1,000 Units by mouth once daily Active furosemide (LASIX) 40 MG tablet Take 1 (one) tablet by mouth once daily 90 tablet 2 07/04/2020 Active flecainide (TAMBOCOR) 50 MG tablet Take 1 (one) tablet by mouth 2 times daily 09/11/2020 Active linaCLOtide (LINZESS) 290 MCG capsule Take 290 mcg by mouth daily before breakfast Take on an empty stomach at least 30 minutes prior to first meal of the day. Active trospium (SANCTURA) 20 MG tablet Take 20 mg by mouth 2 times daily 01/04/2021 Active Other pneumatic compression pump twice a day on her legs for lymphedema. Setting are between 40 to 50 mmgh DX lymphedema 1 Each 08/15/2021 Active anastrozole (Arimidex) 1 MG tablet Take 1 (one) tablet by mouth once daily Active Cranberry 425 MG Take 1 (one) tablet by mouth once daily Active esomeprazole (NexIUM) 40 MG capsule Take 1 (one) capsule by mouth daily before breakfast Active apixaban (Eliquis) 5 MG tablet Take 1 (one) tablet by mouth 2 times daily Active calcium polycarbophil (Fibercon) 625 MG tablet Take 1 (one) tablet by mouth 3 times daily Active saccharomyces (Florastor Extra Str) 250 MG capsule Take 1 (one) capsule by mouth 2 times daily Active HYDROcodone-acetami nophen ([place]) 5-325 MG tablet Take 1 (one) tablet by mouth every 6 hours as needed for Pain Active lactulose (Chronulac) 10 GM/15ML solution Take 30 mL by mouth 4 times daily as needed for Constipation Active levothyroxine (Synthroid) 75 MCG tablet Take one tablet by mouth once daily on Fri, , Fri, , Fri, and Fri Active levothyroxine (Synthroid) 75 MCG tablet Take two tablets by mouth once daily on only Active rosuvastatin (Crestor) 10 MG tablet Take 1 (one) tablet by mouth at bedtime Active cyanocobalamin (Vitamin B-12) 500 MCG tablet Take 1 (one) tablet by mouth once daily Active nitroGLYCERIN (Nitrostat) 0.4 MG tablet Dissolve 1 (one) tablet under the tongue every 5 minutes as needed for Angina Active amitriptyline (Elavil) 25 MG tablet Take 1 (one) tablet by mouth at bedtime 05/30/2022 Active bisacodyl (Dulcolax) 10 MG suppository Insert 1 (one) suppository into the rectum once daily as needed for Constipation 05/30/2022 Active senna-docusate (Senokot-S) 8.6-50 MG tablet Take 1 (one) tablet by mouth once daily 05/30/2022 Active polyethylene glycol 3350 (Miralax) 17 g packet Take 17 (seventeen) g by mouth once daily 05/30/2022 Active acetaminophen (Tylenol) 325 MG tablet Take 2 (two) tablets by mouth every 6 hours as needed Maximum allowable Acetaminophen amount = 4 Grams (4000 mg) / 24 hours. 05/30/2022 Active potassium chloride ER (Klor-Con M) 20 MEQ tablet Take 1 (one) tablet by mouth once daily 05/30/2022 Active metoclopramide (Reglan) 10 MG tablet Take 1 (one) tablet by mouth 3 times daily as needed for Nausea/Vomiting 05/30/2022 Active Active Problems Problem Noted Date Diagnosed Date 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 05/20/2022 Chronic indwelling Olivas catheter 05/19/2022 Gastric outlet obstruction 05/18/2022 Chronic diastolic CHF (congestive heart failure) 05/01/2021 Overview (05/01/2021): Encounter Details Date Type Department Care Team Description 07/31/2020 Office Visit [employer]?? [address]?? [address]?? [place] [address]?? [phone]?? Laz Valencia MD?? 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 Wheelchair bound 12/04/2020 Overview (02/16/2022): IMO 2021 Update Acute congestive heart failure 09/26/2020 Elevated troponin 09/26/2020 Left hip pain 09/14/2020 Ambulatory dysfunction 09/14/2020 Change in bowel habits 06/14/2020 Atrial fibrillation 11/23/2019 Partial seizure 06/26/2018 Overview (06/26/2018): 2000 OAB (overactive bladder) 06/26/2018 Left ventricular hypertrophy 06/26/2018 Hyperparathyroidism 06/26/2018 Primary hypothyroidism 05/06/2018 Calcification of aorta 02/04/2018 Overview (02/04/2018): CT Abd/Pelv 12/17/17 CXR 08/25/17 Iron deficiency anemia due to chronic blood loss 12/12/2017 Chronic idiopathic constipation 12/12/2017 Osteopenia of multiple sites 10/29/2017 Mixed hyperlipidemia 10/22/2017 History of TIA (transient ischemic attack) 10/22 Lymphedema of both lower extremities 10/01/2017 Overview (12/04/2020): Last Assessment & Plan: This is a chronic issue. Holding Lasix and metolazone secondary to hypokalemia. Patient states her legs look better than they normally are currently. 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 ER pos 97% (strong), SD pos 23% (moderate), Her-2 neg (1+ on IHC), Ki-67 19% S/p 08/25/2017 excisional biopsy (Kate); spastic paraplegia: 1.1 cm grade 2/3 IDC. No LVI. Margin neg S/p 09/08/2017 sentinel node biopsy (Kate): 2 neg nodes Med onc: Dr. Gonzalez: adjuvant anastrozole Rad onv: Dr. 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 Valencia 60 % blockage 2010 Lymphatic edema Resolved Problems Problem Noted Date Diagnosed Date Resolved Date Ileus 05/20/2022 05/30/2022 Hypokalemia 05/20/2022 05/30/2022 Hypernatremia 05/20/2022 05/30/2022 Encephalopathy 05/18/2022 05/30/2022 SOB (shortness of breath) 09/26/2020 Urinary tract infection asso ciated with indwelling urethral catheter 07/20/2019 05/30/2022 Overview (07/20/2019): 03/2019 olivas catheter placed for incomplete emptying and overflow incontinence 04/[address] with cystitis 06/2019 proteus Assessment & Plan (07/20/2019 8:50 PM HAIR CLIP[employer]OWER): - Lower urinary tract symptoms (LUTS) 03/23/2019 11/23/2019 Overview (03/24/2019): 11/2018 on myrbetriq 25mg (Dr. Gasca) with some improvement. Had confusion with 50mg? 03/24/19 PVR 304mL. Olivas placed for incontinence, quality of life. Stop myrbetriq. Assessment & Plan (07/20/2019 8:50 PM HAIR CLIP[employer]OWER): - Assessment & Plan (06/01/2019 9:22 PM HAIR [employer]IP[employer]OWER): - Assessment & Plan (03/23/2019 4:31 PM HAIR CLIP[employer]OWER): - Pneumonia due to infectious organism 07/24/2018 11/06/2018 Overview (08/10/2018): Call to pt to report chest xray showed atelectasis or pneumonia in the right base, on the right antibiotic, see in 10 days. Breath in through nose and blow out through pursed lips 10 times every hour when awake. Spoke with pt. . 08-06-2018 Chest xray again showed pneumonia. 08-07-2018/08-10-2018.. CT chest: Call to pt to report CT scan, minimal pneumonia still in the right middle lobe. Follow up with Dr. Camargo when you finish rx, trying to get you in to see her about August 17. She may want you to see pulmonology if not improving and/or check chest xray again. Spoke with pt. Chronic atrial fibrillation 06/26/2018 06/09/2020 IBS (irritable bowel syndrome) 06/26/2018 03/05/2019 Chronically dry eyes 06/26/2018 019 Melena 12/12/2017 11/06/2018 Hypokalemia 08/26/2017 10/22/2017 Other chest pain 08/25/2017 10/22/2017 Breast mass, left 08/25/2017 10/22/2017 Left knee pain 04/25/2017 06/10/2017 Weakness 12/29/2016 06/10/2017 Microcytic anemia 12/29/2016 06/10/2017 Hyperchloremia 12/29/2016 06/10/2017 Long-term insulin use 06/12/20162017 Primary osteoarthritis of right knee 12/09/2014 06/10/2017 Glaucoma 01/07/2011 10/22/2017 Overview (01/07/2011): OPEN ANGLE Breast cancer 09/15/2018 Hypothyroid 06/26/2018 Overview (06/26/2018): cyst on thyroid TIA (transient ischemic attack) 12/04/2020 Immunizations Name Administration Dates Next Due INFLUENZA VACCINE, TRIV. (AF LURIA, FLUZONE TRIVALENT; 6MO+) (IIV3) 02/04/2013,02/14/2012,02/10/2012 Covid Goodzer primary monoval ent 12+ yr 0.3mL Purple cap 07/07/2020,06/13/2020 INFLUENZA VACCINE 03/05/2019, 8,03/19/2018,2016,03/01/2011,03/07/2010 INFLUENZA VACCINE, ADJUVANTE D, QUADR. (FLUAD QUADRIVALENT; 65Y+) (AIIV4) 03/02/2020 INFLUENZA VACCINE, HIGH-DOSE , QUADR. (FLUZONE HIGH-DOSE QUADRIVALENT; 65Y+), 0.7 ML (HD-IIV4) 03/05/2019,03/31/2018,02/16/2016,2014,04/19/2014 PNEUMOCOCCAL PPSV23 12/04/2010,11/29/2005 Pneumococcal Pcv13 Conj 02/16/2016 TD (AGE 7-ADULT) 11/21/2009,09/05/1995 TDAP (7yrs+) 08/30/2015 TETANUS 11/21/2009,09/05/1995 Td (Adult), 2 Lf Tetanus Tox oid, Adsorbed, Pf 11/21/2009,09/05/1995 ZOSTER VACCINE, LIVE 08/24/2007 Family History Medical History Relation Name Comments CAD (Coronary Artery Disease) Brother CHF CAD (Coronary Artery Disease) Father CHF Cancer - Breast Mother Relation Name Status Comments Brother Father Mother Social History Tobacco Use Types Packs/Day Years Used Date Smoking Tobacco: Never Smokeless Tobacco: Never Tobacco Cessation:Counseling Given: Yes Alcohol Use Standard Drinks/Week Comments No 0 (1 standard drink = 0.6 oz pur e alcohol) AUDIT-C Answer Date Recorded Q1: How often do you have a drink containing alcohol? Never 05/22/2022 Q2: How many drinks containi ng alcohol do you have on a typical day when you are drinking? Patient does not drink Q3: How often do you have si x or more drinks on one occasion? Never 05/22/2022 PHQ-2 Answer Date Recorded PHQ2 TOTAL SCORE 0 08/01/2021 Hunger Vital Sign Answer Date Recorded Within the past 12 months, y ou worried that your food would run out before you got the money to buy more. Never true 05/20/19 23 Within the past 12 months, t he food you bought just didn't last and you didn't have money to get more. Never true 05/20/2022 Sex and Gender Information Value Date Recorded Sex Assigned at Not on file Gender Identity Not on file Sexual Orientation Not on file Last Filed Vital Signs Vital Sign Reading Time Taken Comments Blood Pressure 127/52 05/30/2022 8:09 AM [employer] [employer] Pulse 80 05/30/2022 8:09 AM [employer] Temperature 37 ??C (98.6 ??F) 05/30/2022 8:09 AM HAIR [employer]OWER Respiratory Rate 19 05/30/2022 8:09 AM [employer] [employer]OWER Oxygen Saturation 96% 05/30/2022 8:09 AM HAIR CL[employer] POWER Inhaled Oxygen Concentration - - Weight 85.1 kg (187 lb 10.5 oz) 05/23/2022 4:00 AM [employer] Height 162.6 cm (5' 4 ) 05/22/2022 11:3 9 AM HA[facility] [employer]IP[employer]OWER Body Mass Index 32.21 05/22/2022 11:39 AM HAIR CLIP[employer] POWER Plan of Treatment Health Maintenance Due Date Last Done Comments ZOSTER VACCINE (2 of 3) 10/19/2007 08/24/2007 Respiratory Syncytial Virus (RSV) Vaccine Pt: or over 60 yrs (1 - 1-dose 75+ series) 2013 DIABETES-FOOT EXAM WITH MONOFILAMENT 06/09/2021 06/09/2020, 03/19/2018 (Done Outside Per Patient) MEDICARE AWV ? 12 MONTHS 06/09/2021 06/09/2020, 06/09/2020, 01/04/2019 DIABETES-HGB A1C 06/10/2021 12/08/2020, , 03/05/2019, Additional history exists DIABETES RETINOPATHY SCREENING 10/22/2022 10/22/2021, 07/27/2020, 12/30/2019, Additional history exists DEPRESSION SCREENING 05/19/2023 08/01/2021 COVID-19 VACCINE ( season) 2024 02/27/2022, 07/28/2021, 07/07/2020, Additional history exists INFLUENZA VACCINE (#1) 2024 , 03/05/2019, 03/05/2019, Additional history exists DTAP/TDAP/TD VACCINES (8 - Td or Tdap) 08/29/2025 08/30/2015, 11/21/2009, 11/21/2009, Additional history exists PNEUMOCOCCAL VACCINE 50+ Completed 016, 12/04/2010, 11/29/2005 BONE DENSITY TESTING Completed 06/06/2020, 10/29/2017, 05/07/2013 HEPATITIS B VACCINE Aged Out No longe r eligible based on patient's age to complete this topic HIB VACCINE Aged Out No longer eligi ble based on patient's age to complete this topic HPV VACCINE Aged Out No longer eligi ble based on patient's age to complete this topic MENINGOCOCCAL VACCINE Aged Out No lily dulce eligible based on patient's age to complete this topic Goals Goal Patient Goal Type Associated Problems Recent Progress Patient-Stated? 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 8:09 AM [employer]) No Alisa Jaramillo HEMOGLOBIN A1C < 7.0 Result Component 5.4( 12:00 AM CDT) No Alisa Jaramillo Procedures Procedure Name Priority Date/Time Associated Diagnosis Comments EYE EXAM 10/22/2021 HEMOGLOBIN A1C Routine 12/08/2020 12:00 AM CDT Type 2 diabetes mellitus without complication, with long-term current use of insulin (HCC) DEXA BONE DENSITY AXIAL SKELETON Routine 10/29/2017 10:58 AM CDT Infiltrating ductal carcinoma of left breast (HCC) Use of aromatase inhibitors from Last 3 Months or Most Recently Relevant to Health Maintenance Results * EYE EXAM (10/22/2021) Anatomical Region Laterality Modality Other 10/22/2021 Narrative 10/22/2021 Ordered by an unspecified provider. Scanned Document SCANNING ONLY * HEMOGLOBIN A1C (12/08/2020 12:00 AM CDT) Hemoglobin A1c 5.4 4.8 - 5.6 % [facility] INSURANCE BILL Comment: ? . ? Prediabetes: 5.7 - 6.4 ? Diabetes: >6.4 ? Glycemic control for adults with diabetes: <7.0 Blood BLOOD SPECIMEN / Unknown 12/08/2020 12/08/2020 Narrative Resulting Agency Comment Lab Testing performed at: [facility] [address] ??[facility] [id number] Theresa Camargo MD LAB - CHEMISTRY ROSALINAE RICHIE [facility] INSURANCE BILL [address] [place] [address] * DEXA BONE DENSITY AXIAL SKELETON (10/29/2017 10:58 AM CDT) Anatomical Region Laterality Modality Mammography 10/29/2017 11:1 6 AM CDT Narrative 10/29/2017 11:17 AM CDT BONE MINERAL DENSITY STUDY INDICATION: ??Postmenopausal ovarian failure - osteoporosis screening. FINDINGS: The average bone mineral density from L1 to L4 is1.245 g/cm2. T-score is 0.4. Z-score is 1.2. The average bone mineral density of the total left hip is 0.985 g/cm2. T-score is -0.2. ??Z-score is 1.1. Bone mineral density at the left femoral neck is 0.857 g/sq cm with T score -1.3 and Z score 0.2. ASSESSMENT: This patient is considered osteopenic according to World Health Organization criteria. Bone density is between 10 and 25% below young normal. Fracture risk is mild. Treatment is advised. WORLD HEALTH ORGANIZATION DEFINITIONS OSTEOPENIA = -1 TO -2.5 SD BELOW T-SCORE. OSTEOPOROSIS = LESS THAN -2.5 SD BELOW T-SCORE Reading Radiologist: Kelly Cline MD on 10/29/2017 at 11:17 AM Procedure Note Kelly Cline MD - 10/29/2017 BONE MINERAL DENSITY STUDY INDICATION: Postmenopausal ovarian failure - osteoporosis screening. FINDINGS: The average bone mineral density from L1 to L4 is1.245 g/cm2. T-score is 0.4. Z-score is 1.2. The average bone mineral density of the total left hip is 0.985 g/cm2. T-score is -0.2. Z-score is 1.1. Bone mineral density at the left femoral neck is 0.857 g/sq cm with T score -1.3 and Z score 0.2. ASSESSMENT: This patient is considered osteopenic according to World Health Organization criteria. Bone density is between 10 and 25% below young normal. Fracture risk is mild. Treatment is advised. WORLD HEALTH ORGANIZATION DEFINITIONS OSTEOPENIA = -1 TO -2.5 SD BELOW T-SCORE. OSTEOPOROSIS = LESS THAN -2.5 SD BELOW T-SCORE Reading Radiologist: Kelly Cline MD on 10/29/2017 at 11:17 AM Enrique Gonzalez MD DEXA ORDERABLES from Last 3 Months or Most Recently Relevant to Health Maintenance Insurance Payer Benefit Plan / Group Subscriber ID Effective Dates Phone Address Type MEDICARE MEDICARE PART A AND B [id number] [facility] [address] [place] [address] Medicare [employer] [id number] Effective for all dates [address] [place] [address] Commercial MEDICARE MANAGED CARE PLAN GENERIC MEDICARE ADV MEDICARE MANAGED CARE PLAN GENERIC [id number] Effective for all dates Medicare-[facility] ed Care Advance Directives Documents on File Type Date Recorded Patient Engraver Picture Expl anation Adv Directive/Living Will/POA 09/21/2020 7:42 PM * Full Code (Latest Code Status on File) Date Activated Date Inactivated Comments 05/19/2022 11:45 AM 05/30/2022 12:36 PM * Full Code Date Activated Date Inactivated Comments 09/27/2020 3:12 AM 10/04/2020 5:04 PM * Full Code Date Activated Date Inactivated Comments 09/15/2020 3:25 AM 09/21/2020 12:39 AM * Full Code Date Activated Date Inactivated Comments 09/14/2020 7:44 PM 09/15/2020 3:25 AM * Full Code Date Activated Date Inactivated Comments 08/25/2017 8:33 PM 08/26/2017 12:39 PM Care Teams Fitter Up Relationship Specialty Start Date End Date Elizabeth Car MD [address] [place] [address] PCP - General Family Medicine 08/15/22 Etienne Florez MD Orthopedic Surgery 12/09/14 [place] [address] [address] Oncology 09/15/17 [place] [address] [facility] [address] [place] [address] Neurology 06/26/18 [place] [address] [facility] [place] [place] [address] [place] [phone] Cardiovascular Disease 06/26/18 [place] [address] [address] Pulmonary Disease 06/26/18 Yuliya Ibarra MD [address] [place] [phone] Endocrinology 06/26/18 Phuong Callejas DPM [address] [place], [place] [id number] Podiatry 06/26/18 Sy Barrientos MD [address] [place] [address] [place] [address] Ophthalmology 06/26/18 [place] [address] [address] Pulmonary Disease 06/26/18 Rico Gasca MD [address] [facility] [address] [place] [address] Urology 06/26/18 Elle Landaverde MD [address] [facility] [place] [address] Vascular Surgery 06/26/18 Kirk Truong MD [address] [facility] [place] [address] Gastroenterology 06/26/18 [place] [address] [place] [address] General Surgery 06/26/18 [place] [address] [address] Pulmonary Disease 11/10/20 Hussain Ray MD [address] [facility] [address] [place] [address] Urology 07/11/21
--- OUTSIDE RECORDS SUMMARY | 2024-05-26 12:32 | XMS_ITS | Referral Summary ---
Author Organization [facility] Address [address] [place] [address] Care Team Providers Care Rapid Transit Operator Name Role Phone Etienne Florez MD Unavailable [phone] Enrique Gonzalez MD Unavailable Nelson Ross MD Unavailable [phone] Laz Valencia MD Unavailable Russell Moran MD Unavailable [phone] Yuliya Ibarra MD Unavailable [phone] Phuong Callejas DPM Unavailable Sy Barrientos MD Unavailable Russell Moran MD Unavailable Rico Gasca MD Unavailable Elle Landaverde MD Unavailable [phone] Kirk Truong MD Unavailable Shira Love DO Unavailable [phone] Sara Schultz MD Unavailable [phone] Hussain Ray MD Unavailable [phone] Elizabeth Car MD Primary Care Provider + Source Comments [facility],non-owned Affiliates and Associated Physician Practices is amultiple site organization consisting of ambulatory clinics and hospital sitesin [place], [place], [place] and [place]. This disclosure is being madepursuant to the Care Everywhere program and may not contain all information available regarding this patient. Last updated 18.[facility] Allergies Active Allergy Reactions Criticality [...] mouth 2 times daily Active HYDROcodone-acetami nophen (Hachita) 5-325 MG tablet Take 1 (one) tablet [...] Department Care Team Description 07/31/2020 Office Visit [place] [employer]?? [address]?? [address]?? [place] [address]?? [phone]?? Laz Valencia MD?? 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 ER pos 97% (strong), AR pos 23% (moderate), Her-2 neg (1+ on [...] proteus Assessment & Plan (07/20/2019 8:50 PM RAILROAD POLICE OFFICER): - Lower urinary tract symptoms (LUTS) 03/23/2019 11/23/2019 Overview (03/24/2019): 11/2018 on myrbetriq 25mg (Dr. Gasca) with some improvement. Had confusion with 50mg? 03/24/19 PVR 304mL. Olivas placed for incontinence, quality of life. Stop myrbetriq. Assessment & Plan (07/20/2019 8:50 PM RAILROAD POLICE OFFICER): - Assessment & Plan (06/01/2019 9:22 PM RAILROAD POLICE OFFICER): - Assessment & Plan (03/23/2019 4:31 PM RAILROAD POLICE OFFICER): - Pneumonia due to infectious organism 07/24/2018 [...] LURIA, FLUZONE TRIVALENT; 6MO+) (IIV3) 02/04/2013,02/14/2012,02/10/2012 Covid [employer] primary monoval ent 12+ yr 0.3mL Purple [...] Adsorbed, Pf 11/21/2009,09/05/1995 ZOSTER VACCINE, LIVE 08/24/2007 Social History Tobacco Use Types Packs/Day Years [...] Comments Blood Pressure 127/52 05/30/2022 8:09 AM RAILROAD POLICE OFFICER Pulse 80 05/30/2022 8:09 AM RAILROAD POLICE OFFICER Temperature 37 ??C (98.6 ??F) 05/30/2022 8: 09 AM RAILROAD POLICE OFFICER Respiratory Rate 19 05/30/2022 8:09 AM RAILROAD POLICE OFFICER Oxygen Saturation 96% 05/30/2022 8:09 AM RAILROAD POLICE OFFICER Inhaled Oxygen Concentration - - Weight 85.1 kg (187 lb 10.5 oz) 05/23/2022 4:00 AM RAILROAD POLICE OFFICER Height 162.6 cm (5' 4 ) 05/22/2022 11:3 9 AM RAILROAD POLICE OFFICER Body Mass Index 32.21 05/22/2022 11:39 AM RAILROAD POLICE OFFICER Functional Status Functional Status Response Date of Assess ment Is person deaf or have serious hearing difficult y? No 05/22/2022 Is person blind or have serious difficulty seein g? No 05/22/2022 Does person have serious dif ficulty walking/climbing stairs? Yes 05/22/2022 Does person have difficulty dressing/bathing? Ye s 05/22/2022 Does person have difficulty doing errands alone? Yes 05/22/2022 Cognitive Status Response Date of Assessm ent Does person have difficulty concentrating/remembering/making decisions? Yes 05/22/2022 Plan of Treatment Not on file Goals Goal Patient Goal Type Associated Problems Recent Progress Patient-Stated? 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 8:09 AM RAILROAD POLICE OFFICER) No Alisa Jaramillo HEMOGLOBIN A1C < 7.0 [...] Hemoglobin A1c 5.4 4.8 - 5.6 % [facility] Comment: ? . ? Prediabetes: 5.7 - 6.4 ? Diabetes: >6.4 ? Glycemic control for adults with diabetes: <7.0 Blood BLOOD SPECIMEN / Unknown 12/08/2020 12/08/2020 Narrative Resulting Agency Comment Lab Testing performed at: [address] ??[facility] [id number] Theresa Camargo MD LAB - CHEMISTRY ROWAN QUIROZ [facility] INSURANCE BILL [address] [place] [address] * DEXA BONE DENSITY AXIAL SKELETON (10/29/2017 [...] Type MEDICARE MEDICARE PART A AND B [id number] 2003-Pres ent [address] [place] [address] Medicare [employer] [employer] [place] [id number] Effective for all dates [address] [place] [address] Commercial MEDICARE MANAGED CARE PLAN GENERIC MEDICARE ADV MEDICARE MANAGED CARE PLAN GENERIC [id number] Effective for all dates Medicare-Manag ed Care Advance Directives Documents on File Type Date Recorded Patient Feather Cutting Machine Feeder Expl anation Adv Directive/Living Will/POA 09/21/2020 7:42 [...] 8:33 PM 08/26/2017 12:39 PM Care Teams Rapid Transit Operator Relationship Specialty Start Date End Date Elizabeth Car MD [address] [place] [address] PCP - General Family Medicine 08/15/22 Etienne Florez MD Orthopedic Surgery 12/09/14 [place] [address] [phone] Oncology 09/15/17 [place] [address] [facility] [address] [place] [phone] Neurology 06/26/18 [place] [address] [facility] [address] [place] [phone] Cardiovascular Disease 06/26/18 [place] [address] [address] Pulmonary Disease 06/26/18 Yuliya Ibarra MD [address] [facility] [address] [place] [phone] Endocrinology 06/26/18 Phuong Callejas DPM [address] [place] [address] Podiatry 06/26/18 Sy Barrientos MD [address] [place] [address] Ophthalmology 06/26/18 [place] [address] [address] Pulmonary Disease 06/26/18 Rico Gasca MD [address] [place] [phone] Urology 06/26/18 Elle Landaverde MD [address] [place] [address] Vascular Surgery 06/26/18 Kirk Truong MD [address] [place] [address] Gastroenterology 06/26/18 [place] [address] [place] [address] General Surgery 06/26/18 [place] [address] [facility] [address] [place] [address] Pulmonary Disease 11/10/20 Hussain Ray MD [address] [facility] [address] [place] [address] Urology 07/11/21
--- OUTSIDE RECORDS SUMMARY | 2024-05-26 12:33 | XMS_ITS | Encounter Summary ---
Author Organization [facility] Health Address [address] [address] Care Team Providers Care Credit Checker Name Role Phone Etienne Florez MD Unavailable [phone] Enrique Gonzalez MD Unavailable [phone] Nelson Ross MD Unavailable Laz Valencia MD Unavailable Russell Moran MD Unavailable [phone] Yuliya Ibarra MD Unavailable [phone] Phuong Callejas DPM Unavailable Sy Barrientos MD Unavailable Russell Moran MD Unavailable [phone] Rico Gasca MD Unavailable Elle Landaverde MD Unavailable [phone] Kirk Truong MD Unavailable Shira Love DO Unavailable [phone] Sara Schultz MD Unavailable [phone] Hussain Ray MD Unavailable [phone] Enrique Gonzalez MD Unavailable Rosa Abraham RN Unavailable [phone] Elizabeth Car MD Primary Care Provider + Reason for Visit * Reason Onset Date Comments Care Management Initial 08/15/2022 Encounter Details Date Type Department Care Team (Late st Contact Info) Description 08/15/2022 Patient Outreach [facility] Family Medicine [address] [place] [address] Rosa Abraham, DES Care Management Initial Social History Tobacco Use Types Packs/Day Years Used Date Smoking Tobacco: Never Smokeless Tobacco: Never Alcohol Use Standard Drinks/Week Comments No 0 [...] on file Sexual Orientation Not on file documented as of this encounter Functional Status Functional Status Response Date of [...] person have difficulty concentrating/remembering/making decisions? Yes 05/22/2022 documented as of this encounter Miscellaneous Notes * Telephone Encounter - Rosa Abraham RN - 08/15/2022 2:07 PM CDT Patient lives at a group home care facility and is not eligible for care management. Chart re-updated to reflect PCP at facility. documented in this encounter Plan of Treatment Not on file documented as of this encounter Goals Goal Patient Goal Type Associated Problems Recent Progress Patient-Stated? 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 8:09 AM EMOTIONALLY IMPAIRED TEACHER) No Alisa Jaramillo HEMOGLOBIN A1C < 7.0 Result Component 5.4( 12:00 AM CDT) No Alisa Jaramillo documented as of this encounter Visit Diagnoses Not on filedocumented in this encounter Care Teams Credit Checker Relationship Specialty [place] [address] [phone] PCP - [facility] 11/16/21 10/03/22 Elizabeth Car MD [address] [facility] [address] [place] [address] PCP - General Family Medicine 08/15/22 Etienne Florez MD Orthopedic Surgery 12/09/14 [place] [address] [phone] Oncology 09/15/17 [place] [address] [facility] [address] [place] [phone] Neurology 06/26/18 [place] [address] [facility] [address] [place] [address] Cardiovascular Disease 06/26/18 [place] [address] [address] Pulmonary Disease 06/26/18 Yuliya Ibarra MD [address] [facility] [address] [place] [phone] Endocrinology 06/26/18 Phuong Callejas DPM [address] [place] [address] Podiatry 06/26/18 Sy Barrientos MD [address] [place] [address] Ophthalmology 06/26/18 [place] [address] [address] Pulmonary Disease 06/26/18 Rico Gasca MD [address] [facility] [address] [place] [phone] Urology 06/26/18 Elle Landaverde MD [address] [place] [address] Vascular Surgery 06/26/18 Kirk Truong MD [address] [place] [address] Gastroenterology 06/26/18 [place] [address] [facility] [address] [address] [address] [place] [address] General Surgery 06/26/18 [place] [address] [facility] [address] [place] [address] Pulmonary Disease 11/10/20 Hussain Ray MD [address] [facility] [address] [place] [address] Urology 07/11/21 Rosa Abraham, DES Aeronautical Engineering OfficerResource Room Special Education Teacher 08/15/22 08/15/22 documented as of this encounter
--- OUTSIDE RECORDS SUMMARY | 2024-05-26 12:33 | XMS_ITS | Patient Health Summary ---
Author Organization [facility] Address [address] [place] [address] Care Team Providers Care Supervisor Welding Equipment Repairer Name Role Phone Etienne Florez MD Unavailable Enrique Gonzalez MD Unavailable [phone] Nelson Ross MD Unavailable Laz Valencia MD Unavailable Russell Moran MD Unavailable Yuliya Ibarra MD Unavailable Phuong Callejas DPM Unavailable [phone] Sy Barrientso MD Unavailable Russell Moran MD Unavailable [phone] Rico Gasca MD Unavailable Elle Landaverde MD Unavailable Angela Truong MD Unavailable [phone] Shira Love DO Unavailable [phone] Sara Schultz MD Unavailable [phone] Hussain Ray MD Unavailable [phone] Elizabeth Car MD Primary Care Provider + Note from [facility][note 3],non-owned Affiliates and Associated Physician Practices is amultiple site organization consisting of ambulatory clinics and hospital sitesin [place], [place], [place] and [place]. This disclosure is being madepursuant to the Care Everywhere program and may not contain all information available regarding this patient. Last updated 18.[facility] Allergies * Advair Diskus(YEAS INFECTION) * Donepezil(Other) * Piper Longum(Unknown) * Diltiazem(Swelling) * Fluticasone(Diarrhea) * Metformin(Diarrhea) -Low Criticality * Salmeterol(Diarrhea) * Sotalol(Other) Medications * Be aware that medications may not be up to date on this document. Alwaysverify current medications with the patient. * multivitamin with iron (ONE A DAY WITH IRON) tablet Take 1 Tab by mouth once daily. * SITagliptin (JANUVIA) 100 MG tablet Take 100 mg by mouth once daily * PROLENSA 0.07 % opthalmic solution(Started 02/25/2019) Instill 1 drop into right eye once daily 2 refills left * spironolactone (ALDACTONE) 25 MG tablet Take 25 mg by mouth once daily * dorzolamide (TRUSOPT) 2 % ophthalmic solution(Started 11/16/2019) Instill 1 drop into both eyes 2 times daily * vitamin D3 (CHOLECALCIFEROL) 25 MCG (1000 UNITS) tablet Take 1,000 Units by mouth once daily * furosemide (LASIX) 40 MG tablet(Started 07/04/2020) Take 1 (one) tablet by mouth once daily 2 refills by 07/04/2021 * flecainide (TAMBOCOR) 50 MG tablet(Started 09/11/2020) Take 1 (one) tablet by mouth 2 times daily * linaCLOtide (LINZESS) 290 MCG capsule Take 290 mcg by mouth daily before breakfast Take on an empty stomach at least 30 minutes prior to first meal of the day. * trospium (SANCTURA) 20 MG tablet(Started 01/04/2021) Take 20 mg by mouth 2 times daily * Other(Started 08/15/2021) pneumatic compression pump twice a day on her legs for lymphedema. Setting are between 40 to 50 mmgh DX lymphedema * anastrozole (Arimidex) 1 MG tablet Take 1 (one) tablet by mouth once daily * Cranberry 425 MG Take 1 (one) tablet by mouth once daily * esomeprazole (NexIUM) 40 MG capsule Take 1 (one) capsule by mouth daily before breakfast * apixaban (Eliquis) 5 MG tablet Take 1 (one) tablet by mouth 2 times daily * calcium polycarbophil (Fibercon) 625 MG tablet Take 1 (one) tablet by mouth 3 times daily * saccharomyces (Florastor Extra Str) 250 MG capsule Take 1 (one) capsule by mouth 2 times daily * HYDROcodone-acetaminophen (Sentinel) 5-325 MG tablet Take 1 (one) tablet by mouth every 6 hours as needed for Pain * lactulose (Chronulac) 10 GM/15ML solution Take 30 mL by mouth 4 times daily as needed for Constipation * levothyroxine (Synthroid) 75 MCG tablet Take one tablet by mouth once daily on Fri, , Fri, , Fri, and Fri * levothyroxine (Synthroid) 75 MCG tablet Take two tablets by mouth once daily on only * rosuvastatin (Crestor) 10 MG tablet Take 1 (one) tablet by mouth at bedtime * cyanocobalamin (Vitamin B-12) 500 MCG tablet Take 1 (one) tablet by mouth once daily * nitroGLYCERIN (Nitrostat) 0.4 MG tablet Dissolve 1 (one) tablet under the tongue every 5 minutes as needed for Angina * amitriptyline (Elavil) 25 MG tablet(Started 05/30/2022) Take 1 (one) tablet by mouth at bedtime * bisacodyl (Dulcolax) 10 MG suppository(Started 05/30/2022) Insert 1 (one) suppository into the rectum once daily as needed for Constipation * senna-docusate (Senokot-S) 8.6-50 MG tablet(Started 05/30/2022) Take 1 (one) tablet by mouth once daily * polyethylene glycol 3350 (Miralax) 17 g packet(Started 05/30/2022) Take 17 (seventeen) g by mouth once daily * acetaminophen (Tylenol) 325 MG tablet(Started 05/30/2022) Take 2 (two) tablets by mouth every 6 hours as needed Maximum allowable Acetaminophen amount = 4 Grams (4000 mg) / 24 hours. 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, right eye 05/01/2021 Wheelchair bound 12/04/2020 Acute congestive heart failure 09/26/2020 Elevated troponin 09/26/2020 Left hip pain 09/14/2020 Ambulatory dysfunction 09/14/2020 Change in bowel habits 06/14/2020 Atrial fibrillation 11/23/2019 Partial seizure 06/26/2018 OAB (overactive bladder) 06/26/2018 Left ventricular hypertrophy 06/26/2018 Hyperparathyroidism 06/26/2018 Primary hypothyroidism 05/06/2018 Calcification of aorta 02/04/2018 Iron deficiency anemia due to chronic blood loss 12/12/2017 Chronic idiopathic constipation 12/12/2017 Osteopenia of multiple sites 10/29/2017 Mixed hyperlipidemia 10/22/2017 History of TIA (transient ischemic attack) 10/22 Lymphedema of both lower extremities 10/01/2017 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, estrogen receptor positive 08/25/2017 Cancer Staging:Clinical stage from 09/16/2017:Stage IA(cT1b, cN0, cM0, G2, ER+, ID+, HER2-) - Signed by Clarita Mir MD on 10/31/2018 Pathologic stage from 09/17/2017:Stage IA(pT1c, pN0(sn), cM0, G2, ER+, ID+, HER2-) - Signed by Clarita Mir MD on 10/31/2018 Pure hypercholesterolemia 08/30/2015 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 Asthma 01/07/2011 HTN (hypertension) 01/07/2011 Sleep apnea 01/07/2011 Type 2 diabetes mellitus without complication 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 Heart murmur CATY (obstructive sleep apnea) CAD (coronary artery disease) Lymphatic edema Resolved Problems Problem Noted Date Diagnosed Date Resolved Date Ileus 05/20/2022 05/30/2022 Hypokalemia 05/20/2022 05/30/2022 Hypernatremia 05/20/2022 05/30/2022 Encephalopathy 05/18/2022 05/30/2022 SOB (shortness of breath) 09/26/2020 Urinary tract infection asso ciated with indwelling urethral catheter 07/20/2019 05/30/2022 Lower urinary tract symptoms (LUTS) 03/23/2019 11/23/2019 Pneumonia due to infectious organism 07/24/2018 11/06/2018 Chronic atrial fibrillation 06/26/2018 06/09/2020 IBS (irritable bowel syndrome) 06/26/2018 03/05/2019 Chronically dry eyes 06/26/2018 019 Melena 12/12/2017 11/06/2018 Hypokalemia 08/26/2017 10/22/2017 Other chest pain 08/25/2017 10/22/2017 Breast mass, left 08/25/2017 10/22/2017 Left knee pain 04/25/2017 06/10/2017 Weakness 12/29/2016 06/10/2017 Microcytic anemia 12/29/2016 06/10/2017 Hyperchloremia 12/29/2016 06/10/2017 Long-term insulin use 06/12/20162017 Primary osteoarthritis of right knee 12/09/2014 06/10/2017 Glaucoma 01/07/2011 10/22/2017 Breast cancer 09/15/2018 Hypothyroid 06/26/2018 TIA (transient ischemic attack) 12/04/2020 Immunizations * INFLUENZA VACCINE, TRIV. (AFLURIA, FLUZONE TRIVALENT; 6MO+) (IIV3)(Given 02/04/2013, 02/14/2012, 02/10/2012) * Covid Pfizer primary monovalent 12+ yr 0.3mL Purple cap(Given 07/07/2020, 06/13/2020) * INFLUENZA VACCINE(Given 03/05/2019, 03/31/2018, 03/19/2018, 03/13/2017, 03/01/2011, 03/07/2010) * INFLUENZA VACCINE, ADJUVANTED, QUADR. (FLUAD QUADRIVALENT; 65Y+) (AIIV4)(Given 03/02/2020) * INFLUENZA VACCINE, HIGH-DOSE, QUADR. (FLUZONE HIGH-DOSE QUADRIVALENT; 65Y+), 0.7 ML (HD-IIV4)(Given 03/05/2019, 03/31/2018, 02/16/2016, 03/10/2015, 04/19/2014) * PNEUMOCOCCAL PPSV23(Given 12/04/2010, 11/29/2005) * Pneumococcal Pcv13 Conj(Given 02/16/2016) * TD (AGE 7-ADULT)(Given 11/21/2009, 09/05/1995) * TDAP (7yrs+)(Given 08/30/2015) * TETANUS(Given 11/21/2009, 09/05/1995) * Td (Adult), 2 Lf Tetanus Toxoid, Adsorbed, Pf(Given 11/21/2009, 09/05/1995) * ZOSTER VACCINE, LIVE(Given 08/24/2007) Social History Tobacco Use Types Packs/Day Years [...] Comments Blood Pressure 127/52 05/30/2022 8:09 AM HAND WORKER Pulse 80 05/30/2022 8:09 AM HAND WORKER Temperature 37 ??C (98.6 ??F) 05/30/2022 8:09 AM HAND WORKER Respiratory Rate 19 05/30/2022 8:09 AM HAND WORKER Oxygen Saturation 96% 05/30/2022 8:09 AM HAND WORKER Inhaled Oxygen Concentration - - Weight 85.1 kg (187 lb 10.5 oz) 05/23/2022 4:00 AM HAND WORKER Height 162.6 cm (5' 4 ) 05/22/2022 11:3 9 AM HAND WORKER Body Mass Index 32.21 05/22/2022 11:39 AM HAND WORKER Procedures * LAB RESULTS ORDER(Performed 01/04/2023) * CARDIAC EKG ORDER(Performed 06/06/2022) * GLUCOSE - POINT OF CARE(Performed 05/30/2022) * GLUCOSE - POINT OF CARE(Performed 05/30/2022) * GLUCOSE - POINT OF CARE(Performed 05/29/2022) * GLUCOSE - POINT OF CARE(Performed 05/29/2022) * GLUCOSE - POINT OF CARE(Performed 05/29/2022) * SARS-COV-2 (COVID-19) RAPID(Performed 05/29/2022) * GLUCOSE - POINT OF CARE(Performed 05/29/2022) * GLUCOSE - POINT OF CARE(Performed 05/29/2022) * BASIC METABOLIC PANEL (CALCIUM TOTAL)(Performed 05/29/2022) * PHOSPHORUS BLOOD(Performed 05/29/2022) * MAGNESIUM BLOOD(Performed 05/29/2022) * GLUCOSE - POINT OF CARE(Performed 05/29/2022) * GLUCOSE - POINT OF CARE(Performed 05/28/2022) * GLUCOSE - POINT OF CARE(Performed 05/28/2022) * GLUCOSE - POINT OF CARE(Performed 05/28/2022) * GLUCOSE - POINT OF CARE(Performed 05/28/2022) * GLUCOSE - POINT OF CARE(Performed 05/28/2022) * GLUCOSE - POINT OF CARE(Performed 05/28/2022) * DIFFERENTIAL MANUAL(Performed 05/28/2022) * CBC W AUTO DIFFERENTIAL(Performed 05/28/2022) * BASIC METABOLIC PANEL (CALCIUM TOTAL)(Performed 05/28/2022) * PT-INR SLH(Performed 05/28/2022) * PHOSPHORUS BLOOD(Performed 05/28/2022) * MAGNESIUM BLOOD(Performed 05/28/2022) * GLUCOSE - POINT OF CARE(Performed 05/28/2022) * GLUCOSE - POINT OF CARE(Performed 05/27/2022) * BASIC METABOLIC PANEL (CALCIUM TOTAL)(Performed 05/27/2022) * GLUCOSE - POINT OF CARE(Performed 05/27/2022) * GLUCOSE - POINT OF CARE(Performed 05/27/2022) * BASIC METABOLIC PANEL (CALCIUM TOTAL)(Performed 05/27/2022) * GLUCOSE - POINT OF CARE(Performed 05/27/2022) * DIFFERENTIAL MANUAL(Performed 05/27/2022) * BASIC METABOLIC PANEL (CALCIUM TOTAL)(Performed 05/27/2022) * PT-INR SLH(Performed 05/27/2022) * PHOSPHORUS BLOOD(Performed 05/27/2022) * MAGNESIUM BLOOD(Performed 05/27/2022) * CBC W AUTO DIFFERENTIAL(Performed 05/27/2022) * GLUCOSE - POINT OF CARE(Performed 05/27/2022) * BASIC METABOLIC PANEL (CALCIUM TOTAL)(Performed 05/27/2022) * GLUCOSE - POINT OF CARE(Performed 05/27/2022) * GLUCOSE - POINT OF CARE(Performed 05/26/2022) * GLUCOSE - POINT OF CARE(Performed 05/26/2022) * BASIC METABOLIC PANEL (CALCIUM TOTAL)(Performed 05/26/2022) * GLUCOSE - POINT OF CARE(Performed 05/26/2022) * GLUCOSE - POINT OF CARE(Performed 05/26/2022) * DIFFERENTIAL MANUAL(Performed 05/26/2022) * BASIC METABOLIC PANEL (CALCIUM TOTAL)(Performed 05/26/2022) * PT-INR SLH(Performed 05/26/2022) * PHOSPHORUS BLOOD(Performed 05/26/2022) * MAGNESIUM BLOOD(Performed 05/26/2022) * CBC W AUTO DIFFERENTIAL(Performed 05/26/2022) * GLUCOSE - POINT OF CARE(Performed 05/26/2022) * GLUCOSE - POINT OF CARE(Performed 05/25/2022) * BASIC METABOLIC PANEL (CALCIUM TOTAL)(Performed 05/25/2022) * GLUCOSE - POINT OF CARE(Performed 05/25/2022) * GLUCOSE - POINT OF CARE(Performed 05/25/2022) * BASIC METABOLIC PANEL (CALCIUM TOTAL)(Performed 05/25/2022) * GLUCOSE - POINT OF CARE(Performed 05/25/2022) * GLUCOSE - POINT OF CARE(Performed 05/25/2022) * DIFFERENTIAL MANUAL(Performed 05/25/2022) * BASIC METABOLIC PANEL (CALCIUM TOTAL)(Performed 05/25/2022) * PT-INR SLH(Performed 05/25/2022) * PHOSPHORUS BLOOD(Performed 05/25/2022) * MAGNESIUM BLOOD(Performed 05/25/2022) * CBC W AUTO DIFFERENTIAL(Performed 05/25/2022) * GLUCOSE - POINT OF CARE(Performed 05/25/2022) * BASIC METABOLIC PANEL (CALCIUM TOTAL)(Performed 05/24/2022) * GLUCOSE - POINT OF CARE(Performed 05/24/2022) * GLUCOSE - POINT OF CARE(Performed 05/24/2022) * BASIC METABOLIC PANEL (CALCIUM TOTAL)(Performed 05/24/2022) * GLUCOSE - POINT OF CARE(Performed 05/24/2022) * GLUCOSE - POINT OF CARE(Performed 05/24/2022) * DIFFERENTIAL MANUAL(Performed 05/24/2022) * BASIC METABOLIC PANEL (CALCIUM TOTAL)(Performed 05/24/2022) * PT-INR SLH(Performed 05/24/2022) * PHOSPHORUS BLOOD(Performed 05/24/2022) * MAGNESIUM BLOOD(Performed 05/24/2022) * CBC W AUTO DIFFERENTIAL(Performed 05/24/2022) * GLUCOSE - POINT OF CARE(Performed 05/24/2022) * GLUCOSE - POINT OF CARE(Performed 05/24/2022) * BASIC METABOLIC PANEL (CALCIUM TOTAL)(Performed 05/23/2022) * GLUCOSE - POINT OF CARE(Performed 05/23/2022) * BASIC METABOLIC PANEL (CALCIUM TOTAL)(Performed 05/23/2022) * GLUCOSE - POINT OF CARE(Performed 05/23/2022) * EKG 12-LEAD(Performed 05/23/2022) Performed for Hypokalemia, Chronic diastolic CHF (congestive heart failure) (HCC) * URINALYSIS REFLEX TO MICROSCOPIC NO CULTURE(Performed 05/23/2022) * GLUCOSE - POINT OF CARE(Performed 05/23/2022) * GLUCOSE - POINT OF CARE(Performed 05/23/2022) * DIFFERENTIAL MANUAL(Performed 05/23/2022) * BASIC METABOLIC PANEL (CALCIUM TOTAL)(Performed 05/23/2022) * PT-INR SLH(Performed 05/23/2022) * PHOSPHORUS BLOOD(Performed 05/23/2022) * MAGNESIUM BLOOD(Performed 05/23/2022) * CBC W AUTO DIFFERENTIAL(Performed 05/23/2022) * GLUCOSE - POINT OF CARE(Performed 05/23/2022) * GLUCOSE - POINT OF CARE(Performed 05/23/2022) * BASIC METABOLIC PANEL (CALCIUM TOTAL)(Performed 05/22/2022) * GLUCOSE - POINT OF CARE(Performed 05/22/2022) * GLUCOSE - POINT OF CARE(Performed 05/22/2022) * GLUCOSE - POINT OF CARE(Performed 05/22/2022) * BASIC METABOLIC PANEL (CALCIUM TOTAL)(Performed 05/22/2022) * PTT SLH(Performed 05/22/2022) * XR ABDOMEN KUB PORTABLE(Performed 05/22/2022) Performed for 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, Chronic indwelling Schmitt catheter * GLUCOSE - POINT OF CARE(Performed 05/22/2022) * BASIC METABOLIC PANEL (CALCIUM TOTAL)(Performed 05/22/2022) * PHOSPHORUS BLOOD(Performed 05/22/2022) * MAGNESIUM BLOOD(Performed 05/22/2022) * CBC W AUTO DIFFERENTIAL(Performed 05/22/2022) * GLUCOSE - POINT OF CARE(Performed 05/22/2022) * PTT SLH(Performed 05/22/2022) * PT-INR SLH(Performed 05/22/2022) * GLUCOSE - POINT OF CARE(Performed 05/22/2022) * GLUCOSE - POINT OF CARE(Performed 05/21/2022) * PTT SLH(Performed 05/21/2022) * BASIC METABOLIC PANEL (CALCIUM TOTAL)(Performed 05/21/2022) * GLUCOSE - POINT OF CARE(Performed 05/21/2022) * PT-INR SLH(Performed 05/21/2022) * GLUCOSE - POINT OF CARE(Performed 05/21/2022) * GLUCOSE - POINT OF CARE(Performed 05/21/2022) * XR ABDOMEN KUB(Performed 05/21/2022) Performed for Ileus (HCC) * DIFFERENTIAL MANUAL(Performed 05/21/2022) * PTH INTACT W/O CALCIUM(Performed 05/21/2022) * PTT SLH(Performed 05/21/2022) * BASIC METABOLIC PANEL (CALCIUM TOTAL)(Performed 05/21/2022) * PT-INR SLH(Performed 05/21/2022) * PHOSPHORUS BLOOD(Performed 05/21/2022) * MAGNESIUM BLOOD(Performed 05/21/2022) * CBC W AUTO DIFFERENTIAL(Performed 05/21/2022) * GLUCOSE - POINT OF CARE(Performed 05/21/2022) * GLUCOSE - POINT OF CARE(Performed 05/21/2022) * SARS-COV-2 (COVID-19) RAPID(Performed 05/21/2022) * BASIC METABOLIC PANEL (CALCIUM TOTAL)(Performed 05/20/2022) * PTT SLH(Performed 05/20/2022) * GLUCOSE - POINT OF CARE(Performed 05/20/2022) * GLUCOSE - POINT OF CARE(Performed 05/20/2022) * GLUCOSE - POINT OF CARE(Performed 05/20/2022) * TSH REFLEX FREE T4(Performed 05/20/2022) * PHOSPHORUS BLOOD(Performed 05/20/2022) * MAGNESIUM BLOOD(Performed 05/20/2022) * BASIC METABOLIC PANEL (CALCIUM TOTAL)(Performed 05/20/2022) * CREATININE URINE RANDOM(Performed 05/20/2022) * CT HEAD WO CONTRAST(Performed 05/20/2022) Performed for Encephalopathy * GLUCOSE - POINT OF CARE(Performed 05/20/2022) * PTT SLH(Performed 05/20/2022) * PT-INR SLH(Performed 05/20/2022) * POTASSIUM URINE RANDOM(Performed 05/20/2022) * GLUCOSE - POINT OF CARE(Performed 05/20/2022) * XR ABDOMEN KUB PORTABLE(Performed 05/20/2022) Performed for Change in bowel habits * DIFFERENTIAL MANUAL(Performed 05/20/2022) * CBC W AUTO DIFFERENTIAL(Performed 05/20/2022) * COMPREHENSIVE METABOLIC PANEL(Performed 05/20/2022) * GLUCOSE - POINT OF CARE(Performed 05/20/2022) * GLUCOSE - POINT OF CARE(Performed 05/20/2022) * PHOSPHORUS BLOOD(Performed 05/19/2022) * MAGNESIUM BLOOD(Performed 05/19/2022) * BASIC METABOLIC PANEL (CALCIUM TOTAL)(Performed 05/19/2022) * GLUCOSE - POINT OF CARE(Performed 05/19/2022) * GLUCOSE - POINT OF CARE(Performed 05/19/2022) * C DIFFICILE GDH AG + TOXIN A+B(Performed 05/19/2022) * CULTURE URINE(Performed 05/19/2022) * PROCALCITONIN LEVEL(Performed 05/19/2022) * XR CHEST 1VW PORTABLE(Performed 05/19/2022) Performed for Gastric outlet obstruction (HCC), Encephalopathy * XR ABDOMEN KUB PORTABLE(Performed 05/19/2022) Performed for Gastric outlet obstruction (HCC) * CULTURE BLOOD(Performed 05/19/2022) * CULTURE BLOOD(Performed 05/19/2022) * URINALYSIS REFLEX TO MICROSCOPIC NO CULTURE(Performed 05/19/2022) * GLUCOSE - POINT OF CARE(Performed 05/19/2022) * DIFFERENTIAL MANUAL(Performed 05/19/2022) * PT-INR SLH(Performed 05/19/2022) * PHOSPHORUS BLOOD(Performed 05/19/2022) * LIPASE BLOOD(Performed 05/19/2022) * LACTIC ACID BLOOD(Performed 05/19/2022) * COMPREHENSIVE METABOLIC PANEL(Performed 05/19/2022) * CBC W AUTO DIFFERENTIAL(Performed 05/19/2022) * EYE EXAM(Performed 10/22/2021) * LAB RESULTS ORDER(Performed 07/07/2021) * LAB RESULTS ORDER(Performed 07/07/2021) * LAB RESULTS ORDER(Performed 06/05/2021) * LAB RESULTS ORDER(Performed 06/05/2021) * TSH(Performed 05/15/2021) Performed for Hyperparathyroidism (HCC), Hypothyroidism due to acquired atrophy of thyroid * LAB RESULTS ORDER(Performed 04/30/2021) * LAB RESULTS ORDER(Performed 04/28/2021) * LAB RESULTS ORDER(Performed 04/27/2021) * CBC W AUTO DIFFERENTIAL (CANCER CARE)(Performed 01/18/2021) Performed for Malignant neoplasm of upper-outer quadrant of left breast in female, estrogen receptor positive (HCC), Osteopenia of multiple sites, Use of aromatase inhibitors, Iron deficiency anemia due to chronic blood loss * LDH BLOOD(Performed 01/18/2021) Performed for Malignant neoplasm of upper-outer quadrant of left breast in female, estrogen receptor positive (HCC), Osteopenia of multiple sites, Use of aromatase inhibitors, Iron deficiency anemia due to chronic blood loss * RETIC COUNT(Performed 01/18/2021) Performed for Malignant neoplasm of upper-outer quadrant of left breast in female, estrogen receptor positive (HCC), Osteopenia of multiple sites, Use of aromatase inhibitors, Iron deficiency anemia due to chronic blood loss * HAPTOGLOBIN(Performed 01/18/2021) Performed for Malignant neoplasm of upper-outer quadrant of left breast in female, estrogen receptor positive (HCC), Osteopenia of multiple sites, Use of aromatase inhibitors, Iron deficiency anemia due to chronic blood loss * BILIRUBIN TOTAL BLOOD(Performed 01/18/2021) Performed for Malignant neoplasm of upper-outer quadrant of left breast in female, estrogen receptor positive (HCC), Osteopenia of multiple sites, Use of aromatase inhibitors, Iron deficiency anemia due to chronic blood loss * FERRITIN(Performed 01/18/2021) Performed for Malignant neoplasm of upper-outer quadrant of left breast in female, estrogen receptor positive (HCC), Osteopenia of multiple sites, Use of aromatase inhibitors, Iron deficiency anemia due to chronic blood loss * IRON + TRANSFERRIN PANEL(Performed 01/18/2021) Performed for Malignant neoplasm of upper-outer quadrant of left breast in female, estrogen receptor positive (HCC), Osteopenia of multiple sites, Use of aromatase inhibitors, Iron deficiency anemia due to chronic blood loss * BASIC METABOLIC PANEL (CALCIUM TOTAL)(Performed 01/18/2021) Performed for Malignant neoplasm of upper-outer quadrant of left breast in female, estrogen receptor positive (HCC), Osteopenia of multiple sites, Use of aromatase inhibitors * PTH INTACT(Performed 01/18/2021) Performed for Hyperparathyroidism (HCC) * CALCIUM IONIZED BLOOD(Performed 01/18/2021) Performed for Hyperparathyroidism (HCC) * BASIC METABOLIC PANEL (CALCIUM TOTAL)(Performed 01/05/2021) Performed for Hypokalemia * CBC W AUTO DIFFERENTIAL(Performed 01/05/2021) Performed for Anemia, unspecified type * ENDOSCOPY, COLON, SCREENING(Performed 12/27/2020) * ENDOSCOPY ORDER(Performed 12/22/2020) * LAB RESULTS ORDER(Performed 12/22/2020) * BASIC METABOLIC PANEL (CALCIUM TOTAL)(Performed 12/08/2020) Performed for Malignant neoplasm of upper-outer quadrant of left breast in female, estrogen receptor positive (HCC) * HEMOGLOBIN A1C(Performed 12/08/2020) Performed for Type 2 diabetes mellitus without complication, with long-term current use of insulin ([facility]) * TSH(Performed 12/08/2020) Performed for Primary hypothyroidism * COMPREHENSIVE METABOLIC PANEL(Performed 12/08/2020) Performed for Type 2 diabetes mellitus without complication, with long-term current use of insulin ([facility]) * IRON + TIBC PANEL(Performed 12/08/2020) Performed for Anemia, unspecified type * CBC W AUTO DIFFERENTIAL(Performed 12/08/2020) Performed for Type 2 diabetes mellitus without complication, with long-term current use of insulin ([facility]), Anemia, unspecified type * LAB RESULTS ORDER(Performed 12/07/2020) * LAB RESULTS ORDER(Performed 12/07/2020) * PTH INTACT(Performed 10/12/2020) Performed for Hypercalcemia * CALCIUM IONIZED BLOOD(Performed 10/12/2020) Performed for Hypercalcemia * BASIC METABOLIC PANEL (CALCIUM TOTAL)(Performed 10/12/2020) Performed for Hypercalcemia * VITAMIN D 25-HYDROXY(Performed 10/12/2020) Performed for Vitamin D deficiency * CARDIAC RHYTHM STRIP ORDER(Performed 10/05/2020) * GLUCOSE - POINT OF CARE(Performed 10/04/2020) * PTT(Performed 10/04/2020) * CBC W AUTO DIFFERENTIAL(Performed 10/04/2020) * MAGNESIUM BLOOD(Performed 10/04/2020) * COMPREHENSIVE METABOLIC PANEL(Performed 10/04/2020) * GLUCOSE - POINT OF CARE(Performed 10/03/2020) * GLUCOSE - POINT OF CARE(Performed 10/03/2020) * GLUCOSE - POINT OF CARE(Performed 10/03/2020) * NM MYOCARD PERF REST STRESS(Performed 10/03/2020) Performed for Suspected COVID-19 virus infection * STRESS TEST LEXISCAN (NUCLEAR)(Performed 10/03/2020) Performed for Suspected COVID-19 virus infection * GLUCOSE - POINT OF CARE(Performed 10/03/2020) * DIFFERENTIAL MANUAL(Performed 10/03/2020) * PTT(Performed 10/03/2020) * CBC W AUTO DIFFERENTIAL(Performed 10/03/2020) * MAGNESIUM BLOOD(Performed 10/03/2020) * COMPREHENSIVE METABOLIC PANEL(Performed 10/03/2020) * XR ABDOMEN KUB(Performed 10/02/2020) Performed for Pulmonary embolism, other, unspecified chronicity, unspecified whether acute cor pulmonale present (HCC), Suspected COVID-19 virus infection, Acute right-sided congestive heart failure (HCC) * GLUCOSE - POINT OF CARE(Performed 10/02/2020) * GLUCOSE - POINT OF CARE(Performed 10/02/2020) * GLUCOSE - POINT OF CARE(Performed 10/02/2020) * GLUCOSE - POINT OF CARE(Performed 10/02/2020) * DIFFERENTIAL MANUAL(Performed 10/02/2020) * PTT(Performed 10/02/2020) * CBC W AUTO DIFFERENTIAL(Performed 10/02/2020) * MAGNESIUM BLOOD(Performed 10/02/2020) * COMPREHENSIVE METABOLIC PANEL(Performed 10/02/2020) * GLUCOSE - POINT OF CARE(Performed 10/01/2020) * GLUCOSE - POINT OF CARE(Performed 10/01/2020) * GLUCOSE - POINT OF CARE(Performed 10/01/2020) * GLUCOSE - POINT OF CARE(Performed 10/01/2020) * CT ANGIO CHEST PULM EMBOLISM(Performed 10/01/2020) Performed for Suspected COVID-19 virus infection * GLUCOSE - POINT OF CARE(Performed 10/01/2020) * PTT(Performed 10/01/2020) * CBC W AUTO DIFFERENTIAL(Performed 10/01/2020) * PHOSPHORUS BLOOD(Performed 10/01/2020) * MAGNESIUM BLOOD(Performed 10/01/2020) * COMPREHENSIVE METABOLIC PANEL(Performed 10/01/2020) * GLUCOSE - POINT OF CARE(Performed 09/30/2020) * EKG 12-LEAD(Performed 09/30/2020) Performed for Suspected COVID-19 virus infection * TROPONIN I(Performed 09/30/2020) * GLUCOSE - POINT OF CARE(Performed 09/30/2020) * GLUCOSE - POINT OF CARE(Performed 09/30/2020) * ECHOCARDIOGRAM 2D WITH DOPPLER(Performed 09/30/2020) Performed for Acute right-sided congestive heart failure (HCC) * GLUCOSE - POINT OF CARE(Performed 09/30/2020) * CBC W AUTO DIFFERENTIAL(Performed 09/30/2020) * PHOSPHORUS BLOOD(Performed 09/30/2020) * MAGNESIUM BLOOD(Performed 09/30/2020) * COMPREHENSIVE METABOLIC PANEL(Performed 09/30/2020) * PTT(Performed 09/30/2020) * GLUCOSE - POINT OF CARE(Performed 09/29/2020) * GLUCOSE - POINT OF CARE(Performed 09/29/2020) * XR CHEST 1VW PORTABLE(Performed 09/29/2020) Performed for SOB (shortness of breath), Pulmonary embolism, other, unspecified chronicity, unspecified whether acute cor pulmonale present (HCC) * GLUCOSE - POINT OF CARE(Performed 09/29/2020) * GLUCOSE - POINT OF CARE(Performed 09/29/2020) * PTT(Performed 09/29/2020) * CBC W AUTO DIFFERENTIAL(Performed 09/29/2020) * PHOSPHORUS BLOOD(Performed 09/29/2020) * MAGNESIUM BLOOD(Performed 09/29/2020) * COMPREHENSIVE METABOLIC PANEL(Performed 09/29/2020) * GLUCOSE - POINT OF CARE(Performed 09/28/2020) * GLUCOSE - POINT OF CARE(Performed 09/28/2020) * VAS BILATERAL VENOUS DUPLEX LE(Performed 09/28/2020) Performed for Acute congestive heart failure, unspecified heart failure type (HCC), Pulmonary embolism, other, unspecified chronicity, unspecified whether acute cor pulmonale present (HCC), SuspectedCOVID-19 virus infection * FERRITIN(Performed 09/28/2020) * IRON + TRANSFERRIN PANEL(Performed 09/28/2020) * PTH RELATED PEPTIDE(Performed 09/28/2020) * PTH INTACT(Performed 09/28/2020) * VITAMIN D 25-HYDROXY(Performed 09/28/2020) * VITAMIN D 1,25 DIHYDROXY(Performed 09/28/2020) * GLUCOSE - POINT OF CARE(Performed 09/28/2020) * IR TRANSLUM THROMBECTOMY ARTERIAL(Performed 09/28/2020) Performed for Pulmonary embolism, other, unspecified chronicity, unspecified whether acute cor pulmonale present (HCC) * HEMOGLOBIN(Performed 09/28/2020) Performed for Pulmonary embolism, other, unspecified chronicity, unspecified whether acute cor pulmonale present (HCC) * PT PTT PANEL(Performed 09/28/2020) Performed for Pulmonary embolism, other, unspecified chronicity, unspecified whether acute cor pulmonale present (HCC) * LACTIC ACID BLOOD(Performed 09/28/2020) Performed for Suspected COVID-19 virus infection * CBC W AUTO DIFFERENTIAL(Performed 09/28/2020) Performed for Pulmonary embolism, other, unspecified chronicity, unspecified whether acute cor pulmonale present (HCC) * GLUCOSE - POINT OF CARE(Performed 09/27/2020) * PTT(Performed 09/27/2020) Performed for SOB (shortness of breath), Elevated troponin * GLUCOSE - POINT OF CARE(Performed 09/27/2020) * PTT(Performed 09/27/2020) Performed for SOB (shortness of breath), Elevated troponin * GLUCOSE - POINT OF CARE(Performed 09/27/2020) * URINE MICROSCOPIC ONLY(Performed 09/27/2020) * URINALYSIS REFLEX TO MICROSCOPIC NO CULTURE(Performed 09/27/2020) * CULTURE URINE(Performed 09/27/2020) Performed for Elevated troponin, Acute congestive heart failure, unspecified heart failure type (HCC), Pulmonary embolism, other, unspecified chronicity, unspecified whether acute cor pulmonale present (HCC), Suspected COVID-19 virus infection * PTT(Performed 09/27/2020) Performed for SOB (shortness of breath), Pulmonary embolism, other, unspecified chronicity, unspecified whether acute cor pulmonale present (HCC) * GLUCOSE - POINT OF CARE(Performed 09/27/2020) * TROPONIN I(Performed 09/27/2020) Performed for Elevated troponin * PROCALCITONIN LEVEL(Performed 09/27/2020) Performed for Suspected COVID-19 virus infection * C-REACTIVE PROTEIN(Performed 09/27/2020) Performed for Suspected COVID-19 virus infection * FERRITIN(Performed 09/27/2020) Performed for Suspected COVID-19 virus infection * ECHOCARDIOGRAM 2D WITH DOPPLER(Performed 09/27/2020) Performed for Acute congestive heart failure, unspecified heart failure type (HCC) * PT PTT PANEL(Performed 09/27/2020) Performed for Pulmonary embolism, other, unspecified chronicity, unspecified whether acute cor pulmonale present (HCC) * CBC W AUTO DIFFERENTIAL(Performed 09/27/2020) Performed for Pulmonary embolism, other, unspecified chronicity, unspecified whether acute cor pulmonale present (HCC) * CT ANGIO CHEST PULM EMBOLISM(Performed 09/26/2020) Performed for SOB (shortness of breath) * LDH BLOOD(Performed 09/26/2020) Performed for Suspected COVID-19 virus infection * TROPONIN I(Performed 09/26/2020) * SARS-COV-2 (COVID-19) IN HOUSE(Performed 09/26/2020) * D-DIMER(Performed 09/26/2020) * TROPONIN I(Performed 09/26/2020) * COMPREHENSIVE METABOLIC PANEL(Performed 09/26/2020) * CBC W AUTO DIFFERENTIAL(Performed 09/26/2020) * B-TYPE NATRIURETIC PEPTIDE(Performed 09/26/2020) * XR CHEST 2VW(Performed 09/26/2020) Performed for SOB (shortness of breath) * EKG 12-LEAD(Performed 09/26/2020) Performed for SOB (shortness of breath) * GLUCOSE - POINT OF CARE(Performed 09/20/2020) * GLUCOSE - POINT OF CARE(Performed 09/20/2020) * GLUCOSE - POINT OF CARE(Performed 09/20/2020) * CBC W AUTO DIFFERENTIAL(Performed 09/20/2020) Performed for TIA (transient ischemic attack) * BASIC METABOLIC PANEL (CALCIUM TOTAL)(Performed 09/20/2020) Performed for TIA (transient ischemic attack) * GLUCOSE - POINT OF CARE(Performed 09/19/2020) * GLUCOSE - POINT OF CARE(Performed 09/19/2020) * GLUCOSE - POINT OF CARE(Performed 09/19/2020) * CBC W AUTO DIFFERENTIAL(Performed 09/19/2020) Performed for TIA (transient ischemic attack) * BASIC METABOLIC PANEL (CALCIUM TOTAL)(Performed 09/19/2020) Performed for TIA (transient ischemic attack) * GLUCOSE - POINT OF CARE(Performed 09/18/2020) * GLUCOSE - POINT OF CARE(Performed 09/18/2020) * GLUCOSE - POINT OF CARE(Performed 09/18/2020) * GLUCOSE - POINT OF CARE(Performed 09/18/2020) * CBC W AUTO DIFFERENTIAL(Performed 09/18/2020) Performed for TIA (transient ischemic attack) * BASIC METABOLIC PANEL (CALCIUM TOTAL)(Performed 09/18/2020) Performed for TIA (transient ischemic attack) * GLUCOSE - POINT OF CARE(Performed 09/17/2020) * GLUCOSE - POINT OF CARE(Performed 09/17/2020) * GLUCOSE - POINT OF CARE(Performed 09/17/2020) * MRI HIP LEFT WO CONTRAST(Performed 09/17/2020) Performed for Left hip pain * GLUCOSE - POINT OF CARE(Performed 09/17/2020) * CBC W AUTO DIFFERENTIAL(Performed 09/17/2020) Performed for TIA (transient ischemic attack) * BASIC METABOLIC PANEL (CALCIUM TOTAL)(Performed 09/17/2020) Performed for TIA (transient ischemic attack) * GLUCOSE - POINT OF CARE(Performed 09/16/2020) * GLUCOSE - POINT OF CARE(Performed 09/16/2020) * GLUCOSE - POINT OF CARE(Performed 09/16/2020) * CT LUMBAR SPINE WO CONTRAST(Performed 09/16/2020) Performed for Left hip pain * GLUCOSE - POINT OF CARE(Performed 09/16/2020) * CBC W AUTO DIFFERENTIAL(Performed 09/16/2020) Performed for TIA (transient ischemic attack) * BASIC METABOLIC PANEL (CALCIUM TOTAL)(Performed 09/16/2020) Performed for TIA (transient ischemic attack) * GLUCOSE - POINT OF CARE(Performed 09/15/2020) * GLUCOSE - POINT OF CARE(Performed 09/15/2020) * GLUCOSE - POINT OF CARE(Performed 09/15/2020) * GLUCOSE - POINT OF CARE(Performed 09/15/2020) * XR CHEST 1VW PORTABLE(Performed 09/15/2020) Performed for Coronary artery disease involving quinault heart without angina pectoris, unspecified vessel or lesion type * HEMOGLOBIN A1C(Performed 09/15/2020) Performed for Coronary artery disease involving quinault heart without angina pectoris, unspecified vessel or lesion type * CBC W AUTO DIFFERENTIAL(Performed 09/15/2020) Performed for TIA (transient ischemic attack) * BASIC METABOLIC PANEL (CALCIUM TOTAL)(Performed 09/15/2020) Performed for TIA (transient ischemic attack) * GLUCOSE - POINT OF CARE(Performed 09/14/2020) * XR PELVIS W LEFT HIP 2VW(Performed 09/14/2020) Performed for Left hip pain * VAS LEFT VENOUS DUPLEX LE(Performed 09/14/2020) Performed for Left hip pain * COMPREHENSIVE METABOLIC PANEL(Performed 09/14/2020) * CBC W AUTO DIFFERENTIAL(Performed 09/14/2020) * DIABETES EYE EXAM(Performed 07/27/2020) * VAS BILATERAL VENOUS DUPLEX LE(Performed 06/13/2020) Performed for Mass of left lower extremity * BASIC METABOLIC PANEL (CALCIUM TOTAL)(Performed 06/09/2020) Performed for Malignant neoplasm of upper-outer quadrant of left breast in female, estrogen receptor positive (HCC), Osteopenia of multiple sites, Use of aromatase inhibitors * LACTOFERRIN FECAL QUALITATIVE(Performed 05/23/2020) Performed for Diarrhea, unspecified type * C DIFFICILE CYTOTOXIN(Performed 05/23/2020) Performed for Diarrhea, unspecified type * CULTURE STOOL PANEL(Performed 05/23/2020) Performed for Diarrhea, unspecified type * O+P PANEL(Performed 05/23/2020) Performed for Diarrhea, unspecified type * TISSUE TRANSGLUTAMINASE AB IGA(Performed 05/05/2020) Performed for Diarrhea, unspecified type * IGA BLOOD(Performed 05/05/2020) Performed for Diarrhea, unspecified type * TSH REFLEX FREE T4(Performed 05/05/2020) Performed for Diarrhea, unspecified type * MAMMO BILAT DIAGNOSTIC(Performed 02/23/2020) Performed for Malignant neoplasm of upper-outer quadrant of left breast in female, estrogen receptor positive (HCC) * PTH INTACT(Performed 12/30/2019) Performed for Hyperparathyroidism (HCC), Serum calcium elevated * BASIC METABOLIC PANEL (CALCIUM TOTAL)(Performed 12/30/2019) Performed for Hyperparathyroidism (HCC), Serum calcium elevated * DIABETES EYE EXAM(Performed 12/30/2019) * DIABETES EYE EXAM(Performed 12/30/2019) * URINALYSIS AUTO - POINT OF CARE (AMB) STL(Performed 12/01/2019) Performed for Recurrent UTI * COMPREHENSIVE METABOLIC PANEL(Performed 11/26/2019) Performed for Malignant neoplasm of upper-outer quadrant of left breast in female, estrogen receptor positive (HCC), Osteopenia of multiple sites, Use of aromatase inhibitors * BASIC METABOLIC PANEL (CALCIUM TOTAL)(Performed 11/26/2019) Performed for Type 2 diabetes mellitus without complication, with long-term current use of insulin (HCC), Essential hypertension * LIPID PROFILE(Performed 11/26/2019) Performed for Mixed hyperlipidemia * VITAMIN D 25-HYDROXY(Performed 11/26/2019) Performed for Vitamin D deficiency * TSH REFLEX FREE T4(Performed 11/26/2019) Performed for Primary hypothyroidism * VAS LEFT VENOUS DUPLEX LE(Performed 10/18/2019) Performed for Edema of left lower extremity * LAB RESULTS ORDER(Performed 09/14/2019) * LAB RESULTS ORDER(Performed 08/27/2019) * LAB RESULTS ORDER(Performed 08/11/2019) * LAB RESULTS ORDER(Performed 07/13/2019) * CULTURE URINE(Performed 07/13/2019) Performed for Urinary tract infection associated with indwelling urethral catheter, subsequent encounter * LAB RESULTS ORDER(Performed 04/21/2019) * GLUCOSE - POINT OF CARE (AMB) STL(Performed 04/13/2019) Performed for Glucose found in urine on examination * CULTURE URINE(Performed 04/12/2019) Performed for Lower urinary tract symptoms (LUTS) * URINALYSIS AUTO - POINT OF CARE (AMB) STL(Performed 04/12/2019) Performed for Lower urinary tract symptoms (LUTS) * HEMOGLOBIN A1C(Performed 03/05/2019) Performed for Type 2 diabetes mellitus without complication, with long-term current use of insulin ([facility]) * VITAMIN D 25-HYDROXY(Performed 03/05/2019) Performed for Vitamin D deficiency * CBC W AUTO DIFFERENTIAL(Performed 03/05/2019) Performed for Anemia, unspecified type * COMPREHENSIVE METABOLIC PANEL(Performed 03/05/2019) Performed for Type 2 diabetes mellitus without complication, with long-term current use of insulin (HCC), TIA (transient ischemic attack), Hyperparathyroidism (HCC) * BASIC METABOLIC PANEL (CALCIUM TOTAL)(Performed 02/26/2019) Performed for Malignant neoplasm of upper-outer quadrant of left breast in female, estrogen receptor positive (HCC), Osteopenia of multiple sites * PATHOLOGY TISSUE EXAM (STL)(Performed 02/17/2019) Performed for Diagnosis unknown * ENDOSCOPY, COLON, SCREENING(Performed 02/17/2019) Performed for Special screening for malignant neoplasms, colon * COLONOSCOPY SCREEN(Performed 02/17/2019) * COLOGUARD TEST(Performed 12/29/2018) Performed for Anemia, unspecified type, Screen for colon cancer * XR LUMBAR SPINE 2 OR 3VW(Performed 12/17/2018) Performed for Spinal stenosis of lumbar region without neurogenic claudication * XR CERVICAL SPINE 2 OR 3VW(Performed 12/17/2018) Performed for Spondylosis of cervical region without myelopathy or radiculopathy * HM DIABETES EYE EXAM(Performed 11/23/2018) * PTH INTACT(Performed 11/06/2018) Performed for Hyperparathyroidism (HCC) * VITAMIN D 25-HYDROXY(Performed 11/06/2018) Performed for Vitamin D deficiency * TSH(Performed 11/06/2018) Performed for Primary hypothyroidism * HEMOGLOBIN A1C(Performed 11/06/2018) Performed for Type 2 diabetes mellitus without complication, with long-term current use of insulin ([facility]) * COMPREHENSIVE METABOLIC PANEL(Performed 11/06/2018) Performed for Coronary artery disease involving quinault heart without angina pectoris, unspecified vessel or lesion type, Heart murmur, CATY (obstructive sleep apnea), Chronic atrial fibrillation (HCC), Type 2 diabetes mellitus without complication, with long-term current use of insulin ([facility]) * CBC W AUTO DIFFERENTIAL(Performed 11/06/2018) Performed for Coronary artery disease involving quinault heart without angina pectoris, unspecified vessel or lesion type, Heart murmur, Type 2 diabetes mellitus without complication, with long-term current use of insulin ([facility]) * MAMMO BILAT DIAGNOSTIC(Performed 09/14/2018) Performed for Malignant neoplasm of left female breast, unspecified estrogen receptor status, unspecified site of breast ([facility]) * BASIC METABOLIC PANEL (CALCIUM TOTAL)(Performed 08/21/2018) Performed for Malignant neoplasm of upper-outer quadrant of left breast in female, estrogen receptor positive ([facility]) * CT CHEST W CONTRAST(Performed 08/07/2018) Performed for Pneumonia of right lower lobe due to infectious organism * CREATININE BLOOD - POINT OF CARE (IP)(Performed 08/07/2018) Performed for Pneumonia of right lower lobe due to infectious organism * XR CHEST 2VW(Performed 08/06/2018) Performed for Pneumonia of right lower lobe due to infectious organism * XR CHEST 2VW(Performed 07/23/2018) Performed for Acute bronchitis, unspecified organism * EKG 12-LEAD(Performed 06/26/2018) Performed for Type 2 diabetes mellitus without complication, with long-term current use of insulin ([facility]), Essential hypertension, Cataract of right eye, unspecified cataract type * POTASSIUM BLOOD(Performed 02/13/2018) Performed for Encounter for monitoring diuretic therapy * BASIC METABOLIC PANEL (CALCIUM TOTAL)(Performed 01/14/2018) Performed for Iron deficiency anemia due to chronic blood loss * PATHOLOGY TISSUE EXAM (STL)(Performed 12/23/2017) Performed for Diagnosis unknown * ESOPHAGOGASTRODUODENOSCOPY (EGD) DIAGNOSTIC(Performed 12/23/2017) * EGD(Performed 12/23/2017) * CT ABDOMEN PELVIS W CONTRAST(Performed 12/17/2017) Performed for Inguinal hernia without obstruction or gangrene, recurrence not specified, unspecified laterality * CBC W AUTO DIFFERENTIAL(Performed 12/09/2017) Performed for Anemia, unspecified type * DEXA BONE DENSITY AXIAL SKELETON(Performed 10/29/2017) Performed for Infiltrating ductal carcinoma of left breast (HCC), Use of aromatase inhibitors * POTASSIUM BLOOD(Performed 10/22/2017) Performed for Essential hypertension * PATHOLOGY TISSUE EXAM (STL)(Performed 09/08/2017) Performed for Diagnosis unknown * BIOPSY/EXCISION AXILLARY LYMPH NODE(Performed 09/08/2017) * NM SENTINEL NODE INJECTION(Performed 09/08/2017) Performed for Infiltrating ductal carcinoma of left breast (HCC) * GLUCOSE - POINT OF CARE(Performed 09/08/2017) * BASIC METABOLIC PANEL (CALCIUM TOTAL)(Performed 09/08/2017) Performed for Preop examination * CARDIAC RHYTHM STRIP ORDER(Performed 08/29/2017) * GLUCOSE - POINT OF CARE(Performed 08/26/2017) * MAGNESIUM BLOOD(Performed 08/26/2017) Performed for Other chest pain, Hypokalemia * HEMOGLOBIN A1C(Performed 08/26/2017) Performed for Other chest pain, Type 2 diabetes mellitus without complication, with long-term current use of insulin (HCC) * BASIC METABOLIC PANEL (CALCIUM TOTAL)(Performed 08/26/2017) Performed for Other chest pain * CBC W/O DIFFERENTIAL(Performed 08/26/2017) Performed for Other chest pain * TROPONIN I(Performed 08/26/2017) Performed for Other chest pain * GLUCOSE - POINT OF CARE(Performed 08/25/2017) * MAMMO BREAST LEFT SPECIMEN(Performed 08/25/2017) Performed for Preop examination * TROPONIN I(Performed 08/25/2017) Performed for Other chest pain * XR CHEST 1VW PORTABLE(Performed 08/25/2017) Performed for Uncomplicated asthma, unspecified asthma severity, unspecified whether persistent ([facility]) * EKG 12-LEAD(Performed 08/25/2017) Performed for Diagnosis unknown * MAMMO LEFT DIAGNOSTIC(Performed 08/25/2017) Performed for Abnormal mammogram * GLUCOSE - POINT OF CARE(Performed 08/25/2017) * LARYNGEAL MASK AIRWAY(Performed 08/25/2017) * EXCISION LESION/MASS BREAST(Performed 08/25/2017) * US BREAST LEFT NEEDLE LOC(Performed 08/25/2017) Performed for Abnormal finding on breast imaging * PATHOLOGY TISSUE EXAM (STL)(Performed 08/25/2017) Performed for Diagnosis unknown * GLUCOSE - POINT OF CARE(Performed 08/25/2017) * BASIC METABOLIC PANEL (CALCIUM TOTAL)(Performed 08/25/2017) Performed for Preop examination * CBC W/O DIFFERENTIAL(Performed 08/25/2017) Performed for Preop examination * EKG 12-LEAD(Performed 08/19/2017) Performed for Preop examination * US BREAST LEFT LTD(Performed 07/30/2017) Performed for Abnormal mammogram * MAMMO LEFT DIAGNOSTIC(Performed 07/30/2017) Performed for Abnormal mammogram * XR ABDOMEN KUB(Performed 07/22/2017) Performed for Constipation, unspecified constipation type * MAMMO BILAT SCREENING(Performed 07/02/2017) Performed for Breast cancer screening * LIPID PROFILE(Performed 06/12/2017) Performed for Type 2 diabetes mellitus without complication, with long-term current use of insulin (HCC), Mixed hyperlipidemia * COMPREHENSIVE METABOLIC PANEL(Performed 06/12/2017) Performed for Essential hypertension * CBC W AUTO DIFFERENTIAL(Performed 06/12/2017) Performed for Essential hypertension * LAB RESULTS ORDER(Performed 05/02/2017) * TSH (EXTERNAL RESULT ENTRY)(Performed 05/02/2017) * HEMOGLOBIN A1C (EXTERNAL RESULT ENTRY)(Performed 05/02/2017) * URINALYSIS REFLEX MICROSCOPIC REFLEX CULTURE(Performed 01/27/2017) Performed for Urinary tract infection without hematuria, site unspecified * CULTURE URINE REFLEXED I(Performed 01/27/2017) * CARDIAC RHYTHM STRIP ORDER(Performed 01/24/2017) * GLUCOSE - POINT OF CARE(Performed 12/31/2016) * GLUCOSE - POINT OF CARE(Performed 12/31/2016) * CARDIAC EKG ORDER(Performed 12/30/2016) * GLUCOSE - POINT OF CARE(Performed 12/30/2016) * GLUCOSE - POINT OF CARE(Performed 12/30/2016) * MRI BRAIN W CONTRAST(Performed 12/30/2016) Performed for Weakness, HSP (hereditary spastic paraplegia) (HCC) * GLUCOSE - POINT OF CARE(Performed 12/30/2016) * C-REACTIVE PROTEIN SENSITIVE(Performed 12/30/2016) * METHYLMALONIC ACID BLOOD(Performed 12/30/2016) * ERYTHROCYTE SEDIMENTATION RATE(Performed 12/30/2016) * HOMOCYSTEINE BLOOD QUANTITATIVE(Performed 12/30/2016) * LIPID PROFILE(Performed 12/30/2016) * CK BLOOD(Performed 12/30/2016) * TSH(Performed 12/30/2016) * VITAMIN B12(Performed 12/30/2016) * FOLATE(Performed 12/30/2016) * GLUCOSE - POINT OF CARE(Performed 12/29/2016) * GLUCOSE - POINT OF CARE(Performed 12/29/2016) * MRI LUMBAR SPINE WO CONTRAST(Performed 12/29/2016) Performed for Weakness * XR CHEST 1VW PORTABLE(Performed 12/29/2016) Performed for Weakness * URINALYSIS REFLEX MICROSCOPIC REFLEX CULTURE(Performed 12/29/2016) Performed for Weakness * CULTURE URINE(Performed 12/29/2016) Performed for Weakness * GLUCOSE - POINT OF CARE(Performed 12/29/2016) * MRI BRAIN WO CONTRAST(Performed 12/29/2016) Performed for Weakness * HEMOGLOBIN A1C(Performed 12/29/2016) * CBC W AUTO DIFFERENTIAL(Performed 12/29/2016) * BASIC METABOLIC PANEL (CALCIUM TOTAL)(Performed 12/29/2016) * TROPONIN I(Performed 12/29/2016) * TROPONIN I(Performed 12/28/2016) * GLUCOSE - POINT OF CARE(Performed 12/28/2016) * CT ANGIO BRAIN AND NECK(Performed 12/28/2016) Performed for Weakness * CT HEAD WO CONTRAST(Performed 12/28/2016) Performed for Weakness * CREATININE BLOOD - POINT OF CARE (IP)(Performed 12/28/2016) Performed for Weakness * PT-INR(Performed 12/28/2016) * COMPREHENSIVE METABOLIC PANEL(Performed 12/28/2016) * CBC W AUTO DIFFERENTIAL(Performed 12/28/2016) * TROPONIN I(Performed 12/28/2016) * EKG 12-LEAD(Performed 12/28/2016) Performed for Weakness * XR CHEST 2VW(Performed 06/13/2016) Performed for Health maintenance examination * D-DIMER(Performed 06/13/2016) Performed for Health maintenance examination * URINALYSIS NO MICROSCOPIC NO CULTURE(Performed 06/13/2016) Performed for Health maintenance examination * HEMOGLOBIN A1C(Performed 06/13/2016) Performed for Health maintenance examination * VITAMIN D 25-HYDROXY(Performed 06/13/2016) Performed for Health maintenance examination * TSH(Performed 06/13/2016) Performed for Health maintenance examination * COMPREHENSIVE METABOLIC PANEL(Performed 06/13/2016) Performed for Health maintenance examination * CBC W AUTO DIFFERENTIAL(Performed 06/13/2016) Performed for Health maintenance examination * DERMATOPATHOLOGY(Performed 10/24/2015) * XR KNEE BILAT 3VW(Performed 12/09/2014) Performed for Right knee pain * XR ANKLE RIGHT 3VW OR MORE(Performed 02/12/2012) Performed for Fall * XR KNEE RIGHT 4VW OR MORE(Performed 02/12/2012) Performed for Fall * VAS CAROTID DUPLEX BILATERAL(Performed 01/13/2012) Performed for Stroke ([facility]) * MRI BRAIN WO CONTRAST(Performed 01/13/2012) Performed for HSP (hereditary spastic paraplegia) ([facility]), Stroke ([facility]) * ORGANISM ID [email or web address](Performed 07/06/2010) * CULTURE URINE COMPREHENSIVE(Performed 07/06/2010) * CULTURE URINE COMPREHENSIVE(Performed 07/06/2010) * CULTURE URINE COMPREHENSIVE(Performed 07/06/2010) * CULTURE URINE COMPREHENSIVE(Performed 07/06/2010) * CULTURE URINE(Performed 05/10/2010) * CULTURE URINE COMPREHENSIVE(Performed 03/30/2010) * CULTURE URINE COMPREHENSIVE(Performed 02/21/2010) * CULTURE URINE COMPREHENSIVE(Performed 11/10/2009) * CULTURE URINE(Performed 10/20/2009) * CULTURE URINE(Performed 07/14/2009) * CULTURE URINE COMPREHENSIVE(Performed 06/16/2009) * CULTURE URINE(Performed 05/23/2009) * LAB HISTORICAL RESULTS-ONBASE(Performed 12/24/2007) * LAB HISTORICAL RESULTS-ONBASE(Performed 12/24/2007) * LAB HISTORICAL RESULTS-ONBASE(Performed 09/21/2007) * LAB HISTORICAL RESULTS-ONBASE(Performed 07/28/2007) * URINALYSIS - POINT OF CARE (AMB) [facility](Performed 05/19/1998) * URINALYSIS - POINT OF CARE (AMB) [facility](Performed 05/19/1998) * URINALYSIS - POINT OF CARE (AMB) [facility](Performed 05/19/1998) * URINALYSIS - POINT OF CARE (AMB) [facility](Performed 05/19/1998) * URINALYSIS - POINT OF CARE (AMB) [facility](Performed 05/19/1998) Results * LAB RESULTS ORDER (01/04/2023) Only the most recent of17 resultswithin the time period is included. 01/04/2023 Narrative 01/04/2023 Ordered by an unspecified provider. Scanned Document LAB - THERAPEUTIC DR UG MONITORING ORDERABLES * CARDIAC EKG ORDER (06/06/2022 7:39 AM HAND WORKER) Only the most recent of2 resultswithin the time period is included. Narrative 06/06/2022 7:39 AM HAND WORKER Ordered by an unspecified provider. Scanned Document CARDIAC SERVICES ORD ERABLES * (ABNORMAL) GLUCOSE - POINT OF CARE (05/30/2022 8:09 AM HAND WORKER) Only the most recent of132 resultswithin the time period is included. [facility] Glucose WB/POC 149(H) 70 - 115 mg/dL 05/30/2022 8:13 AM HAND WORKER [facility] Specimen Type Cap Fingerstick 2022 8:13 AM HAND WORKER [facility] Blood BLOOD SPECIMEN / Unknown 05/30/2022 8:09 AM HAND WORKER 05/30/2022 8:13 AM HAND WORKER Cristin Salgado MD LAB - POINT OF CARE ORDERABLES [facility] [address] [place] [address], [facility] [phone] * SARS-COV-2 (COVID-19) RAPID (05/29/2022 3:56 PM HAND WORKER) Only the most recent of2 resultswithin the time period is included. [facility] COVID-19 PCR Not detected Not detected 05/29/19 4:38 PM HAND WORKER [facility] Microbiology SPECIMEN FROM NASOPHARYNGEAL STRUCTURE / Unknown Collection / Unknown 05/29/2022 3:56 PM HAND WORKER 05/29/2022 4:00 PM HAND WORKER Narrative [facility] - 05/29/2022 4:38 PM HAND WORKER The Cepheid Xpert Xpress SARS-COV-2 has been authorized by the Food and Drug Administration (FDA) under an Emergency Use Authorization (EUA). This test has been validated in accordance with the FDA's guidance document Policy for Diagnostic Testing in Laboratories Certified to perform High Complexity Testing under CLIA prior to Emergency Use Authorization for Coronavirus Disease-2019 during the Public Health Emergency issued on July 17, 2019. FDA independent review of this validation is pending. This test is only authorized for the duration of the time the declaration that circumstances exist justifying the authorization of emergency use of in vitro diagnostic tests for detection of SARS-COV-2 virus and/or diagnosis of COVID-19 infection under 564(b) (1) of the Act. 21 U.S.C. 360bbb-3 (b) (1), unless the authorization is terminated or revoked sooner. Fact Sheets for this EUA assay are available upon request. Cristin Salgado MD LAB - MICROBIOLOGY ORDERABLES [address] [address], [facility] [phone] * (ABNORMAL) BASIC METABOLIC PANEL (CALCIUM TOTAL) (05/29/2022 4:58 AM HAND WORKER) Only the most recent of45 resultswithin the time period is included. BUN 20 7 - 26 mg/dL 05/29/2022 7:02 AM [facility] Creatinine 0.44(L) 0.56 - 0.96 mg/dL 05/29/2022 7:02 AM [facility] Sodium 139 136 - 145 mmol/L 05/29/2022 7:02 AM [facility] Potassium 3.8 3.5 - 4.5 mmol/L 05/29/2022 7:02 AM [facility] Chloride 111(H) 98 - 107 mmol/L 05/29/2022 7:02 AM [facility] CO2 21(L) 22 - 29 mmol/L 05/29/2022 7:02 AM [facility] Glucose 139(H) 70 - 115 mg/dL 05/29/2022 7:02 AM [facility] Calcium 10.2 8.4 - 10.2 mg/dL 05/29/2022 7:02 AM [facility] Anion Gap 11 8 - 18 05/29/2022 7:02 AM [facility] BUN/Creatinine Ratio 45(H) 7 - 23 05/29/2022 7:02 AM [facility] Osmolality Calculated 293 270 - 300 mOsm/kg 05/29/2022 7:02 AM [facility] eGFR by CKD-EPI >90 >=90 mL/min/1.7 3 m2 05/29/2022 7:02 AM [facility] Blood BLOOD SPECIMEN / Unknown Lab Venipuncture / Unknown 05/29/2022 4:58 AM HAND WORKER 05/29/2022 6:34 AM HAND WORKER Cristin Salgado MD LAB - CHEMISTRY ORD ERABLES [address] [address], [employer] [phone] * (ABNORMAL) PHOSPHORUS BLOOD (05/29/2022 4:58 AM HAND WORKER) Only the most recent of15 resultswithin the time period is included. Pathologist [facility] [place] Phosphorus 2.2(L) 2.9 - 5.1 mg/dL 05/29/2022 7:02 AM [facility] Blood BLOOD SPECIMEN / Unknown Lab Venipuncture / Unknown 05/29/2022 4:58 AM HAND WORKER 05/29/2022 6:34 AM HAND WORKER Mich Nolan MD LAB - CHEMISTRY ORD ERABLES [address] [address], [facility] [phone] * MAGNESIUM BLOOD (05/29/2022 4:58 AM HAND WORKER) Only the most recent of18 resultswithin the time period is included. Pathologist [facility] Magnesium 2.3 1.6 - 2.6 mg/dL 05/29/2022 7:02 AM [facility] Blood BLOOD SPECIMEN / Unknown Lab Venipuncture / Unknown 05/29/2022 4:58 AM HAND WORKER 05/29/2022 6:34 AM HAND WORKER Mich Nolan MD LAB - CHEMISTRY ORD ERABLES [facility] [address] [place] [address], [facility] [phone] * (ABNORMAL) DIFFERENTIAL MANUAL (05/28/2022 6:30 AM HAND WORKER) Only the most recent of11 resultswithin the time period is included. [facility] WBC (corrected for NRBC) 15.4 10? 3 /uL 05/28/2022 7:45 AM [facility] Total Cell Count 100 05/28/19 23 7:45 AM [facility] Neutrophils Absolute Manual 13.09(H) 1.60 - 7.00 10? 3 /uL 05/28/2022 7:45 AM [facility] Comment:(BANDS+SEGS) x WBC = NEUT # (ANC) Lymphocyte Absolute Manual 0.62(L) 1.10 - 3.90 10? 3 /uL 05/28/2022 7:45 AM [facility] Monocytes Absolute Manual 1.39(H) 0.26 - 1.07 10? 3 /uL 05/28/2022 7:45 AM [facility] Eosinophils Absolute Manual 0.15 0.00 - 0.47 10? 3 /uL 05/28/2022 7:45 AM [facility] Basophil Absolute Manual 0.15(H) 0.00 - 0.08 10? 3 /uL 05/28/2022 7:45 AM [facility] Neutrophil % Manual 85(H) 35 - 70 % 05/28/2022 7:45 AM [facility] Lymphocyte % Manual 4(L) 20 - 43 % 05/28/2022 7:45 AM [facility] Monocytes % Manual 9 5 - 13 % 05/28/2022 7:45 AM [facility] Eosinophils % Manual 1 0 - 6 % 05/28/2022 7:45 AM [facility] Basophils % Manual 1 0 - 2 % 05/28/2022 7:45 AM [facility] Platelet Estimate Adequate Adequate 05/28/2022 7:45 AM [facility] Polychromasia Occasional( A) None 05/28/2022 7:45 AM [facility] Large Platelet Count Occasional( A) None 05/28/2022 7:45 AM [facility] Blood BLOOD SPECIMEN / Unknown Lab Venipuncture / Unknown 05/28/2022 6:30 AM HAND WORKER 05/28/2022 7:00 AM HAND WORKER Mich Nolan MD LAB - HEMATOLOGY OR DERABLES [facility] [address] [place] [address], [facility] [phone] * (ABNORMAL) CBC W AUTO DIFFERENTIAL (05/28/2022 6:30 AM HAND WORKER) Only the most recent of35 resultswithin the time period is included. WBC 15.4(H) 3.5 - 10.5 10? 3 /uL 05/28/2022 7:27 AM [facility] RBC 4.65 3.80 - 5.20 10? 6 /uL 05/28/2022 7:27 AM [facility] Hemoglobin 12.7 12.0 - 15.6 g/dL 05/28/2022 7:27 AM [facility] Hematocrit 39.2 35.0 - 45.0 % 05/28/2022 7:27 AM [facility] MCV 84.3 80.7 - 98.3 fL 05/28/2022 7:27 AM [facility] MCH 27.3 26.7 - 34.0 pg 05/28/2022 7:27 AM [facility] MCHC 32.4 30.8 - 35.9 g/dL 05/28/2022 7:27 AM [facility] RDW-SD 50.5(H) 36.0 - 50.0 fL 05/28/2022 7:27 AM [facility] RDW-CV 16.6(H) 11.2 - 14.8 % 05/28/2022 7:27 AM [facility] Platelet Count 429(H) 150 - 400 10? 3 /uL 05/28/2022 7:27 AM [facility] MPV 9.9 9.4 - 12.9 fL 05/28/2022 7:27 AM [facility] nRBC Absolute 0.08(H) 0 10? 3 /uL 05/28/2022 7:27 AM [facility] nRBC Auto 0.5(H) 0 /100 WBC 05/28/2022 7:27 AM [facility] Blood BLOOD SPECIMEN / Unknown Lab Venipuncture / Unknown 05/28/2022 6:30 AM HAND WORKER 05/28/2022 7:00 AM HAND WORKER Mich Nolan MD LAB - HEMATOLOGY OR DERABLES Performing Organization Address [facility] [address]/[facility] Co de Phone Number [address] [phone] [phone] * (ABNORMAL) PT-INR [facility] (05/28/2022 6:29 AM HAND WORKER) Only the most recent of11 resultswithin the time period is included. PT 15.2(H) 12.1 - 14.8 Seconds 05/28/2022 7:26 AM [facility] INR 1.2 See Comment 05/28/2022 7:26 AM [facility] Comment:The suggested therap eutic range for standard coumadin (warfarin) therapy is an INR of 2.0-3.0. For high-risk patients (Mechanical Mitral Valve Prosthesis, etc.), the suggested prophylactic therapeutic range is an INR of 2.5-3.5. Blood BLOOD SPECIMEN / Unknown Lab Venipuncture / Unknown 05/28/2022 6:29 AM HAND WORKER 05/28/2022 6:59 AM HAND WORKER Mich Nolan MD LAB - COAGULATION O RDERABLES Performing Organization Address City/[facility] [address]/ZIP Co de Phone Number [address] [place] [address], [facility] [phone] * EKG 12-LEAD (05/23/2022 12:55 PM HAND WORKER) Only the most recent of7 resultswithin the time period is included. Ventricular Rate 76 BPM [facility] MUSE Atrial Rate 76 BPM [facility] M[facility] P-R Interval 156 ms [facility] QRS Duration ms 98 ms [facility] M[facility] Q-T Interval ms 362 ms [facility] MUSE QTC Calculation (Bezet) 407 ms [facility] MUSE Calculated P [place] 42 degrees [facility] MUSE Calculated R [place] -46 degrees [facility] MUSE Calculated T [place] 27 degrees [facility] MUSE Interpretation EKG NORMAL SINUS RHYTHM LEFT ANTERIOR FASCICULAR BLOCK ABNORMAL ECG NO PREVIOUS ECGS AVAILABLE Confirmed by JOY MARTINI MD ([id number]) on 05/24/2022 5:11:57 PM [facility] MUSE 05/23/2022 12:5 5 PM HAND WORKER 05/24/2022 5:11 PM HAND WORKER Mich Nolan MD ECG ORDERABLES [facility] * (ABNORMAL) URINALYSIS REFLEX TO MICROSCOPIC NO CULTURE (05/23/2022 12:33 PM HAND WORKER) Only the most recent of3 resultswithin the time period is included. Color UA Yellow Straw, Yellow 05/23/2022 12:50 PM HAND WORKER [facility] Clarity UA Clear Clear 05/23/2022 12:50 PM [facility] Specific [place] UA 1.012 1.005 - 1.030 05/23/2022 12:50 PM [facility] pH UA 7.0 5.0 - 8.0 pH 05/23/2022 12:50 PM [facility] Protein UA Negative Negative 05/23/2022 12:50 PM [facility] Glucose UA 3+(A) Negative 05/23/2022 12:50 PM HAND WORKER [facility] Ketone UA Negative Negative 05/23/2022 12:50 PM [facility] Bilirubin UA Negative Negative 05/23/2022 12:50 PM [facility] Blood UA Negative Negative 05/23/2022 12:50 PM [facility] Nitrite UA Negative Negative 05/23/2022 12:50 PM [facility] Leukocyte Esterase Negative Negative 05/23/2022 12:50 PM [facility] Urobilinogen UA 4.0(A) Negative mg/dL 05/23/2022 12:50 PM [facility] RBC UA 0-2 None Seen, 0-2, 3-5 /HPF 05/23/2022 12:50 PM [facility] WBC UA 0-5 None Seen, 0-5 /HPF 05/23/2022 12:50 PM [facility] Squamous Epithelial Cells UA 0-2 None Seen, 0-2, 3-5 /HPF 05/23/2022 12:50 PM [facility] Mucus UA 1+ /LPF 05/23/2022 12:50 PM [facility] Urine URINE SPECIMEN OBTAINED VIA [employer] URINARY CATHETER / Unknown Collection / Unknown 05/23/2022 12:33 PM HAND WORKER 05/23/2022 12:41 PM HAND WORKER Narrative [facility] - 05/23/2022 12:50 PM HAND WORKER Mich Nolan MD LAB - URINALYSIS OR DERABLES [facility] [address] [place] [address], [facility] [phone] * (ABNORMAL) PTT [facility] (05/22/2022 11:59 AM HAND WORKER) Only the most recent of6 resultswithin the time period is included. APTT 68.9(H) 23.0 - 38.4 Seconds 05/22/2022 1:27 PM [facility] Comment:Suggested therapeuti c range for full dose I.V. unfractionated heparin therapy for venous thromboembolism is 71 to 109 seconds. Blood BLOOD SPECIMEN / Unknown Lab Venipuncture / Unknown 05/22/2022 11:59 AM HAND WORKER 05/22/2022 1:16 PM HAND WORKER Mich Nolan MD LAB - COAGULATION O RDERABLES [facility] [address] [place] [address], [facility] [phone] * XR ABDOMEN KUB PORTABLE (05/22/2022 8:04 AM HAND WORKER) Only the most recent of3 resultswithin the time period is included. Anatomical Region Laterality Modality Abdomen Radiographic Mireya ging 05/22/2022 11:0 1 AM HAND WORKER Impressions 05/22/2022 9:26 PM HAND WORKER IMPRESSION: Nonobstructive bowel gas pattern. Large volume of stool within the colon. Report dictated by Derrek Dixon M.D. (sales and marketing vice president) IGarret MD have personally reviewed and interpreted this examination/study. 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 FINDINGS: Enteric tube course over the diaphragm, crosses midline and terminates within the antrum pyloric region. There is no dilatation of small or large bowel. Large volume stool noted throughout the colon. No pathologic calcifications are demonstrated. Free air cannot be excluded on this supine exam. Osseous structures are intact. Surgical clips overlie the right upper quadrant. 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 FINDINGS: Enteric tube course over the diaphragm, crosses midline and terminates within the antrum pyloric region. There is no dilatation of small orlarge bowel. Large volume stool noted throughout the colon. No pathologic calcifications are demonstrated. Free air cannot be excluded on thissupine exam. Osseous structures are intact. Surgical clips overlie the rightupper quadrant. IMPRESSION: Nonobstructive bowel gas pattern. Large volume of stool within thecolon. Report dictated by Derrek Dixon M.D. (sales and marketing vice president) Garret Nascimento MD have personally reviewed and interpreted this examination/study. > Interpreting Provider: Garret Velasco MD on 05/22/2022 9:26 PM Mich Nolan MD DIAGNOSTIC IMAGING ORDERABLES * XR ABDOMEN KUB (05/21/2022 7:30 AM HAND WORKER) Only the most recent of3 resultswithin the time period is included. Anatomical Region Laterality Modality Abdomen Radiographic Mireya ging 05/21/2022 7:21 AM HAND WORKER Narrative 05/22/2022 11:22 AM HAND WORKER PROCEDURE: ??XR ABDOMEN KUB, DATE/TIME OF EXAM: ??05/21/2022 6:54 AM, LOCATION [facility] INDICATION: K56.7: Ileus (CMS/HCC) ADDITIONAL CLINICAL INFORMATION: Ordering Provider Reason For Exam: ??ileus COMPARISON: KUB 05/20/2022. FINDINGS/IMPRESSION: An enteric tube traverses the diaphragm with the side-port superimposing the gastric body and the terminus superimposing the expected positioning of the antropyloric region. Surgical clips within the right upper quadrant and skin lynette within the left breast are redemonstrated. There is no dilatation of the visualized small or large bowel. A large stool burden is again noted within the colon. Intra-abdominal free air cannot be adequately assessed on a supine radiograph. No pathological calcification is seen. The visible osseous structures are intact. The lung bases are clear. Report dictated by Huy Zuniga M.D. (sales and marketing vice president). > Dictated by Huy Zuniga (Promotional Representative) 05/22/2022 9:35 AM Nelson Nascimento MD have personally reviewed and interpreted this examination/study. > Interpreting Provider: Nelson Cruz MD on 05/22/2022 11:22 AM Procedure Note Nelson Cruz MD - 05/22/2022 PROCEDURE: XR ABDOMEN KUB, DATE/TIME OF EXAM: 05/21/2022 6:54 AM, LOCATION [facility] INDICATION: K56.7: Ileus (CMS/HCC) ADDITIONAL CLINICAL INFORMATION: Ordering Provider Reason For Exam: ileus COMPARISON: KUB 05/20/2022. FINDINGS/IMPRESSION: An enteric tube traverses the diaphragm with the side-port superimposing the gastric body and the terminus superimposing the expected positioningof the antropyloric region. Surgical clips within the right upper quadrantand skin lynette within the left breast are redemonstrated. There is no dilatation of the visualized small or large bowel. A large stool burden is again noted within the colon. Intra-abdominal free air cannot be adequately assessed on a supine radiograph. No pathological calcification is seen. The visible osseous structuresare intact. The lung bases are clear. Report dictated by Huy Zuniga M.D. (sales and marketing vice president). > Dictated by Huy Zuniga (Promotional Representative) 05/22/2022 9:35 AM INelson MD have personally reviewed and interpreted this examination/study. > Interpreting Provider: Nelson Cruz MD on 05/22/2022 11:22 AM Moe Russell MD DIAGNOSTIC IMAGING O RDERABLES * PTH INTACT W/O CALCIUM (05/21/2022 6:23 AM HAND WORKER) PTH Intact 54.7 8.0 - 77.0 pg/mL 05/21/2022 7:12 AM HAND WORKER [facility] Blood BLOOD SPECIMEN / Unknown Venipuncture / Unknown 05/21/2022 6:23 AM HAND WORKER 05/21/2022 6:32 AM HAND WORKER Moe Russell MD LAB - CHEMISTRY ROWAN QUIROZ [facility] [address] [place] [address], [facility] [phone] * TSH REFLEX FREE T4 (05/20/2022 1:44 PM HAND WORKER) Only the most recent of3 resultswithin the time period is included. TSH 0.686 0.350 - 4.940 uIU/mL 05/20/2022 2:41 PM HAND WORKER [facility] Blood BLOOD SPECIMEN / Unknown Venipuncture / Unknown 05/20/2022 1:44 PM HAND WORKER 05/20/2022 1:51 PM HAND WORKER Brayden Villdea MD LAB - CHEMISTRY ORDE RABLES [facility] [address] [place] [address], [place] [phone] * CREATININE URINE RANDOM (05/20/2022 12:52 PM HAND WORKER) Creatinine Urine 29 Not Established mg/dL 05/20/2022 1:12 PM HAND WORKER [facility] Urine URINE SPECIMEN OBTAINED BY CLEAN CATCH PROCEDURE / Unknown Collection / Unknown 05/20/2022 12:52 PM HAND WORKER 05/20/2022 12:55 PM HAND WORKER Brayden Villeda MD LAB - URINE CHEMISTR Y ORDERABLES Performing Organization Address City/[facility] [address]/ZIP Co de Phone Number [facility] [address] [place] [address], [place] [phone] * CT HEAD WO CONTRAST (05/20/2022 12:12 PM HAND WORKER) Only the most recent of2 resultswithin the time period is included. Anatomical Region Laterality Modality Head Computed Tomogra phy 05/20/2022 12:2 0 PM HAND WORKER Impressions 05/20/2022 1:36 PM HAND WORKER IMPRESSION: No acute intracranial abnormality. Report dictated by Gareth Peraza MD (sales and marketing vice president) I, Kari Reynoso MD have personally reviewed and interpreted this examination/study. > Interpreting Provider: Kari Reynoso MD on 05/20/2022 1:36 PM Narrative 05/20/2022 1:36 PM HAND WORKER PROCEDURE: ??CT HEAD WO CONTRAST, DATE/TIME OF EXAM: ??05/20/2022 12:13 PM, LOCATION ??[facility] INDICATION: G93.40: Encephalopathy ADDITIONAL CLINICAL INFORMATION: Ordering Provider Reason For Exam: ??altered mental status COMPARISON: None. EXAMINATION: CT scan of the head without intravenous contrast TECHNIQUE: CT of the head was performed without intravenous contrast according to standard protocol. CT dose reduction technique was used, including Automated Exposure Control. FINDINGS: Confluent chronic microvascular ischemic changes are seen. There is moderate generalized parenchymal volume loss. There is no CT evidence of acute infarct. There is no acute hemorrhage. There is no hydrocephalus, midline shift or extra-axial fluid collection. There are significant intracranial arterial calcifications. The paranasal sinuses and tympanomastoid cavities are aerated. The patient is status post right cataract surgery.No significant osseous abnormality is noted. Procedure Note Kari Reynoso MD - 05/20/2022 PROCEDURE: CT HEAD WO CONTRAST, DATE/TIME OF EXAM: 05/20/2022 12:13 PM, LOCATION [facility] INDICATION: G93.40: Encephalopathy ADDITIONAL CLINICAL INFORMATION: Ordering Provider Reason For Exam: altered mental status COMPARISON: None. EXAMINATION: CT scan of the head without intravenous contrast TECHNIQUE: CT of the head was performed without intravenous contrast according to standard protocol. CT dose reduction technique was used, including Automated Exposure Control. FINDINGS: Confluent chronic microvascular ischemic changes are seen. There is moderate generalized parenchymal volume loss. There is no CT evidence of acute infarct. There is no acute hemorrhage. There is no hydrocephalus, midline shiftor extra-axial fluid collection. There are significant intracranialarterial calcifications. The paranasal sinuses and tympanomastoid cavities are aerated. Thepatient is status post right cataract surgery.No significant osseous abnormalityis noted. IMPRESSION: No acute intracranial abnormality. Report dictated by Gareth Peraza MD (sales and marketing vice president) IKari MD have personally reviewed and interpreted this examination/study. > Interpreting Provider: Kari Reynoso MD on 05/20/2022 1:36 [address] Villeda MD CT ORDERABLES * POTASSIUM URINE RANDOM (05/20/2022 7:53 AM HAND WORKER) Potassium Urine 44.5 Not Established mmol/L 05/20/2022 8:22 AM HAND WORKER [facility] Urine URINE SPECIMEN OBTAINED BY CLEAN CATCH PROCEDURE / Unknown Collection / Unknown 05/20/2022 7:53 AM HAND WORKER 05/20/2022 7:58 AM HAND WORKER Brayden Villeda MD LAB - URINE CHEMISTR Y ORDERABLES [facility] [address] [place] [address], [facility] [phone] * (ABNORMAL) COMPREHENSIVE METABOLIC PANEL (05/20/2022 3:36 AM HAND WORKER) Only the most recent of17 resultswithin the time period is included. BUN 24 7 - 26 mg/dL 05/20/2022 4:28 AM [facility] Creatinine 0.58 0.56 - 0.96 mg/dL 05/20/2022 4:28 AM [facility] Sodium 148(H) 136 - 145 mmol/L 05/20/2022 4:28 AM [facility] Potassium 2.2(LL) 3.5 - 4.5 mmol/L 05/20/2022 4:28 AM [facility] Chloride 114(H) 98 - 107 mmol/L 05/20/2022 4:28 AM [facility] CO2 26 22 - 29 mmol/L 05/20/2022 4:28 AM [facility] Glucose 114 70 - 115 mg/dL 05/20/2022 4:28 AM [facility] Calcium 9.8 8.4 - 10.2 mg/dL 05/20/2022 4:28 AM [facility] Protein Total 4.9(L) 6.0 - 8.3 g/dL 05/20/2022 4:28 AM [facility] Albumin 2.4(L) 3.4 - 5.0 g/dL 05/20/2022 4:28 AM [facility] Bilirubin Total 0.3 0.2 - 1.2 mg/dL 05/20/2022 4:28 AM [facility] Alkaline Phosphatase 65 40 - 150 U/L 05/20/2022 4:28 AM [facility] ALT 12 5 - 55 U/L 05/20/2022 4:28 AM [facility] AST 12 5 - 34 U/L 05/20/2022 4:28 AM [facility] Anion Gap 10 8 - 18 05/20/2022 4:28 AM [facility] BUN/Creatinine Ratio 41(H) 7 - 23 05/20/2022 4:28 AM [facility] Osmolality Calculated 311(H) 270 - 300 mOsm/kg 05/20/2022 4:28 AM [facility] Albumin/Globulin Ratio 1.0(L) 1.1 - 2.3 05/20/2022 4:28 AM [facility] eGFR by CKD-EPI 90 >=90 mL/min/1.7 3 m2 05/20/2022 4:28 AM [facility] Blood BLOOD SPECIMEN / Unknown Venipuncture / Unknown 05/20/2022 3:36 AM HAND WORKER 05/20/2022 3:49 AM HAND WORKER Brayden Villeda MD LAB - CHEMISTRY ROWAN QUIROZ Performing Organization Address City/[facility] [address]/ZIP Co de Phone Number [facility] [address] [place] [address], [place] [phone] * C DIFFICILE GDH AG + TOXIN A+B (05/19/2022 5:04 PM HAND WORKER) Pathologist [facility] [place] C difficile GDH antigen & toxin A/B NEGATIVE NEGATIVE 05/19/2022 9:06 PM HAND WORKER [facility] Stool STOOL SPECIMEN / Unknown Collection / Unknown 05/19/2022 5:04 PM HAND WORKER 05/19/2022 5:08 PM HAND WORKER Narrative [facility] - 05/19/2022 9:06 PM HAND WORKER Negative for toxigenic C. difficile Brayden Villeda MD LAB - MICROBIOLOGY O RDERABLES [facility] [address] [place] [address], [facility] [phone] * CULTURE URINE (05/19/2022 3:37 PM HAND WORKER) Only the most recent of9 resultswithin the time period is included. Culture Urine 10,000-50,000 CFU/mL urogenital rebeka DRAKE 05/20/2022 10:27 PM HAND WORKER [facility] Urine URINE SPECIMEN OBTAINED VIA INDWELLING URINARY CATHETER / Unknown Collection / Unknown 05/19/2022 3:37 PM HAND WORKER 05/19/2022 4:05 PM HAND WORKER Brayden Villeda MD LAB - MICROBIOLOGY O RDERABLES [facility] [address] [place] [address], [facility] [phone] * (ABNORMAL) PROCALCITONIN LEVEL (05/19/2022 3:02 PM HAND WORKER) Only the most recent of2 resultswithin the time period is included. PROCALCITONIN 0.30(H) <=0.10 ng/mL 05/19/2022 3:58 PM HAND WORKER [facility] Blood BLOOD SPECIMEN / Unknown Venipuncture / Unknown 05/19/2022 3:02 PM HAND WORKER 05/19/2022 3:10 PM HAND WORKER Narrative [facility] - 05/19/2022 3:58 PM HAND WORKER The change in procalcitonin (PCT) concentration over time provides support in decision making on antibiotic discontinuation for suspected or confirmed septic patients. Follow-up samples should be tested once every 1-2 days based upon physician discretion taking into account the patient? s evolution and progress. Consider discontinuation of ??antibiotic therapy ??if the PCT current ??is <= 0.5 ng/mL or if the delta PCT is > 80%. ??Duration of antibiotics should not be determined solely on PCT; established guidelines for the indication should be followed. ? PCT peak: ??Highest observed PCT concentration ? PCT current: Most recent PCT concentration ? Calculate delta PCT using the following equation: ?Delta PCT ??= ?? PCT Peak ? PCT current ??X 100% ? PCT Peak The Change in Procalcitonin Calculator is available at [email or web address] ?? If clinical picture has not improved and PCT remains high, reevaluate and consider treatment failure or other causes. Brayden Villeda MD LAB - CHEMISTRY ROWAN QUIROZ [facility] [address] [place] [address], [facility] [phone] * XR CHEST 1VW PORTABLE (05/19/2022 1:13 PM HAND WORKER) Only the most recent of5 resultswithin the time period is included. Anatomical Region Laterality Modality Chest Radiographic Mireya ging 05/19/2022 1:40 PM HAND WORKER Narrative 05/19/2022 2:57 PM HAND WORKER EXAMINATION: XR CHEST 1VW PORTABLE HISTORY: K31.1: Gastric outlet obstruction G93.40: Encephalopathy COMPARISON: No prior study is available for comparison. FINDINGS/IMPRESSION: Enteric tube course below the diaphragm, tip not imaged. No confluent consolidation is noted. There is no pleural effusion or pneumothorax. The heart is normal in size. The superior mediastinal contours are within normal limits. Aortic atherosclerosis is noted calcified mediastinal lymph nodes are noted. No acute osseous abnormality is identified. > Dictated by Gareth Peraza MD (sales and marketing vice president). I, AGUILAR MEDINA MD have personally reviewed and interpreted this examination/study. > Interpreting Provider: AGUILAR MEDINA MD on 05/19/2022 2:57 PM Procedure Note Aguilar Medina MD - 05/19/2022 EXAMINATION: XR CHEST 1VW PORTABLE HISTORY: K31.1: Gastric outlet obstruction G93.40: Encephalopathy COMPARISON: No prior study is available for comparison. FINDINGS/IMPRESSION: Enteric tube course below the diaphragm, tip not imaged. No confluent consolidation is noted. There is no pleural effusion or pneumothorax. The heart is normal in size. The superior mediastinal contours are within normal limits. Aortic atherosclerosis is noted calcified mediastinal lymph nodes are noted. No acute osseousabnormality is identified. > Dictated by Gareth Peraza MD (sales and marketing vice president). I, AGUILAR MEDINA MD have personally reviewed and interpreted this examination/study. > Interpreting Provider: AGUILAR MEDINA MD on 05/19/2022 2:57 PM Brayden Villeda MD DIAGNOSTIC IMAGING O RDERABLES * CULTURE BLOOD (05/19/2022 12:36 PM HAND WORKER) Only the most recent of2 resultswithin the time period is included. Pathologist [facility] [place] Culture No growth day 5 DRAKE 05/24/2022 4:00 PM HAND WORKER [facility] Blood PERIPHERAL BLOOD / Unknown Venipuncture / Unknown 05/19/2022 12:36 PM HAND WORKER 05/19/2022 12:38 PM HAND WORKER Brayden Villeda MD LAB - MICROBIOLOGY O RDSAMANTA [facility] [address] [place] [address], [facility] [phone] * (ABNORMAL) LIPASE BLOOD (05/19/2022 12:01 PM HAND WORKER) [facility] Lipase 7(L) 8 - 78 U/L 05/19/2022 12:39 PM HAND WORKER [facility] Blood BLOOD SPECIMEN / Unknown Venipuncture / Unknown 05/19/2022 12:01 PM HAND WORKER 05/19/2022 12:09 PM HAND WORKER Narrative [facility] - 05/19/2022 12:39 PM HAND WORKER Lipase results from the Asher Alinity analyzer may not be comparable with other methodologies. Brayden Villeda MD LAB - CHEMISTRY ROWAN QUIROZ [facility] [address] [place] [address], [place] [phone] * LACTIC ACID BLOOD (05/19/2022 12:01 PM HAND WORKER) Only the most recent of2 resultswithin the time period is included. [facility] Lactic Acid-Stat 1.0 <=2.0 mmol/L 05/19/2022 12:30 PM HAND WORKER [facility] Blood BLOOD SPECIMEN / Unknown Venipuncture / Unknown 05/19/2022 12:01 PM HAND WORKER 05/19/2022 12:09 PM HAND WORKER Brayden Villeda MD LAB - CHEMISTRY ROWAN QUIROZ Performing Organization Address City/[facility] [address]/ZIP Co de Phone Number [facility] [address] [place] [address], [facility] [phone] * EYE EXAM (10/22/2021) Anatomical Region Laterality Modality Other 10/22/2021 Narrative 10/22/2021 Ordered by an unspecified provider. Scanned Document SCANNING ONLY * TSH (05/15/2021) Only the most recent of5 resultswithin the time period is included. Blood BLOOD SPECIMEN / Unknown 05/15/2021 Theresa Camargo MD LAB - CHEMISTRY ROWAN QUIROZ Performing Organization Address City/[facility] [address]/ZIP Co de Phone Number [facility] INSURANCE BILL [address] [place] [address] * (ABNORMAL) CBC W AUTO DIFFERENTIAL (CANCER CARE) (01/18/2021 10:58 AM CDT) Pathologist [facility] [place] WBC 11.5(H) 4.4 - 10.7 x10E9/L 01/18/2021 11:04 AM CDT [facility] Neutrophils % 69.7 44.0 - 73.0 % 01/18/2021 11:04 AM CDT [facility] Lymphocytes % 11.6(L) 20.0 - 43.0 % 01/18/2021 11:04 AM CDT [facility] Monocytes % 16.7(H) 5.0 - 13.0 % 01/18/2021 11:04 AM CDT [facility] Eosinophils % 1.6 0.0 - 7.0 % 01/18/2021 11:04 AM CDT [facility] Basophils % 0.4 0.0 - 2.0 % 01/18/2021 11:04 AM CDT [facility] Neutrophil Absolute 8.00(H) 2.01 - 7.14 x10E9/L 01/18/2021 11:04 AM CDT [facility] Lymphocytes Absolute 1.33 1.07 - 3.94 x10E9/L 01/18/2021 11:04 AM CDT [facility] Monocytes Absolute 1.92(H) 0.26 - 1.07 x10E9/L 01/18/2021 11:04 AM CDT [facility] Eosinophils Absolute 0.18 0 - 0.47 x10E9/L 01/18/2021 11:04 AM CDT [facility] Basophils Absolute 0.05 0 - 0.08 x10E9/L 01/18/2021 11:04 AM CDT [facility] RBC 5.34(H) 3.80 - 5.20 x10E12/L 01/18/2021 11:04 AM CDT [facility] Hemoglobin 11.5(L) 12.0 - 15.6 gm/dL 01/18/2021 11:04 AM CDT [facility] Hematocrit 39.5 35.9 - 45.5 % 01/18/2021 11:04 AM CDT [facility] MCV 74.0(L) 80.7 - 98.3 fl 01/18/2021 11:04 AM CDT [facility] MCH 21.5(L) 26.7 - 34.0 pg 01/18/2021 11:04 AM CDT [facility] MCHC 29.1(L) 30.8 - 35.9 gm/dL 01/18/2021 11:04 AM CDT [facility] RDW-CV 19.8(H) 12.1 - 14.9 % 01/18/2021 11:04 AM CDT [facility] Platelet Count 408 153 - 416 x10E9/L 01/18/2021 11:04 AM CDT [facility] MPV 10.4 9.4 - 12.9 fl 01/18/2021 11:04 AM CDT [facility] Blood BLOOD SPECIMEN / Unknown 01/18/2021 10:58 AM CDT 01/18/2021 10:58 AM CDT Enrique Gonzalez MD LAB - HEMATOLOGY ORD ERABLES Performing Organization Address City/[facility] [address]/[facility] Co de Phone Number [facility] [address] [address] * (ABNORMAL) RETIC COUNT (01/18/2021 9:41 AM CDT) [facility] Reticulocyte Count 2.15(H) 0.5 - 1.7 % [facility] INSURANCE BILL Comment: RETICULOCYTE ABSOLUTE ([facility]) ??0.1155 ? x10E6/uL ?H ??REFERENCE RANGE: 0.0041-0.0971 RETIC IMMATURE FRACTIONATED ??39.7 ? % ?0.9-14.3 ?? H HEMOGLOBIN RETIC PG BLOOD ( ??22.1 ? pg ? 27.8-36.8 ??L Blood BLOOD SPECIMEN / Unknown 01/18/2021 9:41 AM CDT 01/18/2021 Narrative Resulting Agency Comment Lab Testing performed at: [facility] [address] ?? [facility] [phone] Enrique Gonzalez MD LAB - HEMATOLOGY ORD ERABLES [facility] INSURANCE BILL [address] [place] [address] * LDH BLOOD (01/18/2021 9:41 AM CDT) Only the most recent of2 resultswithin the time period is included. LDH 137 125 - 220 U/L [facility] INSURANCE BILL Blood BLOOD SPECIMEN / Unknown 01/18/2021 9:41 AM CDT 01/18/2021 Narrative Resulting Agency Comment Lab Testing performed at: [place] [address] ?? [place] [phone] Enrique Gonzalez MD LAB - CHEMISTRY ROWAN QUIROZ Performing Organization Address [facility] [address]/[facility] Co de Phone Number [facility] INSURANCE BILL [address] [place] [address] * BILIRUBIN TOTAL BLOOD (01/18/2021 9:41 AM CDT) Bilirubin Total 0.2 0.2 - 1.2 mg/dL [facility] INSURANCE BILL Blood BLOOD SPECIMEN / Unknown 01/18/2021 9:41 AM CDT 01/18/2021 Narrative Resulting Agency Comment Lab Testing performed at: [place] [address] [address] ?? [place] [phone] Enrique Gonzalez MD LAB - CHEMISTRY ROWAN QUIROZ Performing Organization Address [facility] [address]/[facility] Phone Number [facility] INSURANCE BILL [address] [place] [address] * (ABNORMAL) IRON + TRANSFERRIN PANEL (01/18/2021 9:41 AM CDT) Only the most recent of2 resultswithin the time period is included. Iron 21(L) 50 - 170 ug/dL [facility] INSURANCE BILL Transferrin 349 173 - 360 mg/dL [facility] INSURANCE BILL Comment: TIBC CALCULATED BLOOD ([facility]) ??436 ?ug/dL ?240-450 SATURATION % BLOOD ([facility]) ? 5 ?% ?20-50 ?L Blood BLOOD SPECIMEN / Unknown 01/18/2021 9:41 AM CDT 01/18/2021 Narrative Resulting Agency Comment Lab Testing performed at: [facility] [address] [address] ?? [place] [phone] Enrique Gonzalez MD LAB - CHEMISTRY ROWAN QUIROZ [facility] INSURANCE BILL [address] [place] [address] * HAPTOGLOBIN (01/18/2021 9:41 AM CDT) Haptoglobin 105 41 - 333 mg/dL [facility] INSURANCE BILL Blood BLOOD SPECIMEN / Unknown 01/18/2021 9:41 AM CDT 01/18/2021 Narrative Resulting Agency Comment Lab Testing performed at: [facility] [place] [address] [facility] ??[facility] [phone] Enrique Gonzalez MD LAB - CHEMISTRY ROWAN QUIROZ Performing Organization Address City/[facility] [address]/ZIP Co de Phone Number [facility] INSURANCE BILL [address] [place] [address] * FERRITIN (01/18/2021 9:41 AM CDT) Only the most recent of3 resultswithin the time period is included. Ferritin 13 5 - 204 ng/mL [facility] INSURANCE BILL Blood BLOOD SPECIMEN / Unknown 01/18/2021 9:41 AM CDT 01/18/2021 Narrative Resulting Agency Comment Lab Testing performed at: [facility] [address] ?? [place] [phone] Enrique Gonzalez MD LAB - CHEMISTRY ROWAN QUIROZ [facility] INSURANCE BILL [address] [place] [address] * (ABNORMAL) PTH INTACT (01/18/2021 12:00 AM CDT) Only the most recent of5 resultswithin the time period is included. PTH Intact 85(H) 15 - 65 pg/mL [facility] ACCOUNT BILL Blood BLOOD SPECIMEN / Unknown 01/18/2021 01/19/2021 Narrative Resulting Agency Comment Lab Testing performed at: [facility] [address] ??[facility] [phone] Brooke Wilsonmolly PRINT SUPPORT SPECIALIST-RESIDENT CARE AID LAB - CHEMISTRY ORDERABLES [facility] ACCOUNT BILL [address] [place] [address] * CALCIUM IONIZED BLOOD (01/18/2021 12:00 AM CDT) Only the most recent of2 resultswithin the time period is included. Calculatedium Ionized Calculated mg/dL 5.6 4.5 - 5.6 mg/dL [facility] INSURANCE BILL Blood BLOOD SPECIMEN / Unknown 01/18/2021 01/19/2021 Narrative Resulting Agency Comment Lab Testing performed at: [facility] [place] [address] ??[facility] [phone] Brooke Wilsonmolly PRINT SUPPORT [employer]IST[employer]RESIDENT [employer] LAB - CHEMISTRY ORDERABLES [facility] INSURANCE BILL [address] [place] [address] * ENDOSCOPY, COLON, SCREENING (12/27/2020) Scanned Document GI PROCEDURE ORDERAB LES * ENDOSCOPY ORDER (12/22/2020) Scanned Document GI PROCEDURE ORDERAB LES * HEMOGLOBIN A1C (12/08/2020 12:00 AM CDT) Only the most recent of7 resultswithin the time period is included. Hemoglobin A1c 5.4 4.8 - 5.6 % [facility] INSURANCE BILL Comment: ? . ? Prediabetes: 5.7 - 6.4 ? Diabetes: >6.4 ? Glycemic control for adults with diabetes: <7.0 Blood BLOOD SPECIMEN / Unknown 12/08/2020 12/08/2020 Narrative Resulting Agency Comment [facility]: [facility] [address] ??[facility] [phone] Theresa Camargo MD LAB - CHEMISTRY ROWAN QUIROZ Performing Organization Address [facility] [address]/[facility] Co de Phone Number [facility] INSURANCE BILL [address] [place] [address] * (ABNORMAL) IRON + TIBC PANEL (12/08/2020 12:00 AM CDT) Pathologist [facility] [place] TIBC 421 250 - 450 ug/dL [facility] INSURANCE BILL UIBC 398(H) 118 - 369 ug/dL [facility] INSURANCE BILL Iron 23(L) 27 - 139 ug/dL [facility] INSURANCE BILL Iron Saturation 5(LL) 15 - 55 % [facility] INSURANCE BILL Blood BLOOD SPECIMEN / Unknown 12/08/2020 12/08/2020 Narrative Resulting Agency Comment Lab Testing performed at: [facility] [address] ??[facility] [phone] Theresa Camargo MD LAB - CHEMISTRY ROWAN QUIROZ Performing Organization Address [facility] [address]/[facility] de Phone Number [facility] INSURANCE BILL [address] [place] [address] * VITAMIN D 25-HYDROXY (10/12/2020 12:09 PM CDT) Only the most recent of6 resultswithin the time period is included. Vitamin D, 25 Hydroxy 33.8 30 - 100 ng/mL [facility] INSURANCE BILL Comment: Vitamin D Status: ?Deficiency ? <20 ? ng/mL ?Insufficiency ?? 20-30 ??ng/mL ?Sufficiency ? 30-100 ng/mL ?Toxicity ? >100 ?ng/mL Blood BLOOD SPECIMEN / Unknown 10/12/2020 12:09 PM CDT 10/12/2020 Narrative Resulting Agency Comment Lab Testing performed at: [facility] [address] [facility] ?? [facility] [phone] Brooke Haynes PRINT SUPPORT SPECIALIST-RESIDENT [employer]ARE A[employer] LAB - CHEMISTRY ORDERABLES [facility] INSURANCE BILL [address] [place] [address] * CARDIAC RHYTHM STRIP ORDER (10/05/2020 11:57 PM CDT) Only the most recent of3 resultswithin the time period is included. Narrative 10/05/2020 11:57 PM CDT Ordered by an unspecified provider. Scanned Document CARDIAC SERVICES ORD ERABLES * PTT (10/04/2020 4:17 AM CDT) Only the most recent of9 resultswithin the time period is included. PTT 30.9 23.0 - 38.4 sec 10/04/2020 4:51 AM CDT [facility] Blood BLOOD SPECIMEN / Unknown Venipuncture / Unknown 10/04/2020 4:17 AM CDT 10/04/2020 4:34 AM CDT Narrative [facility] LAB[facility] - 10/04/2020 4:51 AM CDT Heparin Therapeutic Range for PTT: ??71.0 - 109.0 seconds. Melodie Maya MD LAB - COAGULATION OR DERABLES [facility] [address] [place] [address] * NM MYOCARD PERFUSION SPECT STRESS AND REST (10/03/2020 10:43 AM CDT) Anatomical Region Laterality Modality Chest Nuclear Medicine 10/03/2020 11:1 4 AM CDT Impressions 10/03/2020 11:15 AM CDT Normal myocardial perfusion scan. *Reading Radiologist: Julian North on 10/03/2020 at 11:15 AM Narrative 10/03/2020 11:15 AM CDT Dual isotope radionuclide gated SPECT myocardial perfusion scan Indication: Chest pain Radiopharmaceutical: Tc 99m Tetrofosmin 30 mCi IV administered at stress. Technetium 99m Tetrofosmin 10 mCi IV administered at rest. Findings: Stress portion of the exam was monitored by the cardiology service. Stress achieved via Lexiscan 0.4 mg. There are no stress induced or fixed perfusion defects. EF = 75%. EDV= 68 cc. There are no wall motion abnormalities. Procedure Note Julian North MD - 10/03/2020 Dual isotope radionuclide gated SPECT myocardial perfusion scan Indication: Chest pain Radiopharmaceutical: Tc 99m Tetrofosmin 30 mCi IV administered at stress. Technetium 99m Tetrofosmin 10 mCi IV administered at rest. Findings: Stress portion of the exam was monitored by the cardiology service. Stress achieved via Lexiscan 0.4 mg. There are no stress induced or fixed perfusion defects. EF = 75%. EDV= 68 cc. There are no wall motion abnormalities. IMPRESSION Normal myocardial perfusion scan. *Reading Radiologist: Julian North on 10/03/2020 at 11:15 AM Ryan He MD NM ORDERAB LES * STRESS TEST LEXISCAN (NUCLEAR) (10/03/2020 9:24 AM CDT) Stress Test Summary For full formatted report, please see the report link in the order. Acquisition Time: 2020-10-03 ??09:24:28 Total Exercise Time: 00:01:09 Test Indications: Dyspnea, Chest Discomfort Medications: Protocol: ??LEXISCAN Max HR: 203 BPM ??146% of ??Pred: 139 BPM Max BP: 114/054 mmHG Max Work Load: 1.0 METS Reason for Termination: LEXISCAN PROTOCOL COMPLETED Resting ECG: Sinus Rhythm Functional Capacity: HR Response to Exercise: BP Resoonse to Exercise: Chest Pain: none Arrhythmias: none ST Changes: No Changes From Baseline Overall Impression: NO ISCHEMIC ECG CHANGES NOTED NUCLEAR IMAGES PENDING Diagnosis: Confirmed by WILLIE VILLA MD ([id number]) on 10/13/2020 1:19:47 PM Attending Physician: Referred By: ? Confirmed By:WILLIE VILLA MD PSYCHIATRIC STRESS 10/03/2020 9:24 AM CDT 10/13/2020 1:19 PM CDT Ryan He MD CARDIAC SE RVICES ORDERABLES PSYCHIATRIC STRESS * CT ANGIO CHEST PULM EMBOLISM (10/01/2020 10:16 AM CDT) Only the most recent of2 resultswithin the time period is included. Anatomical Region Laterality Modality Chest Computed Tomogra phy 10/01/2020 10:2 3 AM CDT Impressions 10/01/2020 10:30 AM CDT Resolution of the saddle pulmonary embolism, and clot from the right pulmonary arterial system. Small volume residual clot on the left. Right heart dilatation has decreased in the interval. No new PE seen. Lungs are clear. Findings discussed with Dr. He by Dr. Azar at 10:30 AM on October 01, 2020. *Reading Radiologist: Nelson Azar on 10/01/2020 at 10:30 AM Narrative 10/01/2020 10:[address] angiogram PE Protocol Clinical Indication: Shortness of breath. COMPARISON: September 26, 2020 Technique: The pulmonary embolus protocol was utilized. Axial CT images from the lung apices to the lung bases were obtained following Isovue 370, 80 cc intravenous contrast administration. Multiplanar maximum intensity projection reconstructions were created on an independent workstation. Findings: There is no supraclavicular or axillary lymphadenopathy. No mediastinal or hilar lymphadenopathy identified. Mild cardiomegaly is noted. No thoracic aneurysm or dissection. Plaque is noted in the aorta and coronary arteries. Interval resolution of the saddle pulmonary embolus and essentially all the clot from the right pulmonary arterial system. There is small volume residual clot on the left within the lobar branches to the upper and lower lobes; however there is good perfusion around this clot, which is nonocclusive. The right heart is significantly less dilated than previously although remains slightly larger diameter than the left ventricle. There is no acute airspace disease or pulmonary edema. The central airways are clear. No acute osseous abnormality. Limited views of the upper abdomen are unremarkable. Procedure Note Nelson Azar MD - 10/01/2020 CT angiogram PE Protocol Clinical Indication: Shortness of breath. COMPARISON: September 26, 2020 Technique: The pulmonary embolus protocol was utilized. Axial CT images from the lung apices to the lung bases were obtained following Isovue 370, 80 cc intravenous contrast administration. Multiplanar maximum intensity projection reconstructions were created on an independent workstation. Findings: There is no supraclavicular or axillary lymphadenopathy. No mediastinal or hilar lymphadenopathy identified. Mild cardiomegaly is noted. No thoracic aneurysm or dissection. Plaque is noted in the aorta and coronary arteries. Interval resolution of the saddle pulmonary embolus and essentially all the clot from the right pulmonary arterial system. There is small volume residual clot on the left within the lobar branches to the upper and lower lobes; however there is good perfusion around this clot, which is nonocclusive. The right heart is significantly less dilated than previously although remains slightly larger diameter than the left ventricle. There is no acute airspace disease or pulmonary edema. The central airways are clear. No acute osseous abnormality. Limited views of the upper abdomen are unremarkable. IMPRESSION Resolution of the saddle pulmonary embolism, and clot from the right pulmonary arterial system. Small volume residual clot on the left. Right heart dilatation has decreased in the interval. No new PE seen. Lungs are clear. Findings discussed with Dr. He by Dr. Azar at 10:30 AM on October 01, 2020. *Reading Radiologist: Nelson Azar on 10/01/2020 at 10:30 AM Ryan He MD CT ORDERAB LES * (ABNORMAL) TROPONIN I (09/30/2020 4:48 PM CDT) Only the most recent of9 resultswithin the time period is included. Troponin I 0.051(HH) <0.038 ng/mL 09/30/2020 5:21 PM CDT [facility] Blood BLOOD SPECIMEN / Unknown Venipuncture / Unknown 09/30/2020 4:48 PM CDT 09/30/2020 4:51 PM CDT Ryan He MD LAB - CHEM ISTRY ORDERABLES [facility] [address] [place] [address] * ECHOCARDIOGRAM 2D WITH DOPPLER (09/30/2020 10:15 AM CDT) Only the most recent of2 resultswithin the time period is included. 09/30/2020 10:1 5 AM CDT Narrative Procedure Note Willie Villa MD - 09/30/[address] [address] Echocardiography Examination Transthoracic Name: [facility]#: MR#: [id number] Admission Number: [id number] Study Date: 09/30/2020 Study Time: 09:15 AM Date Of : 1940 Age: 79 years Height: 65 in. (165.1 cm) Weight: 175 lbs. (79.38 kg) BSA: 1.87 m2 Gender: Female Blood Pressure: / Heart Rate: Exam Details Procedure Ordered: ECHOCARDIOGRAM 2D W/DOPPLER Procedure Components: Limited 2D imaging, Definity Procedure Status: Routine study Image Quality: Technically Difficult Contrast: Intravenous contrast (Definity) was administered to opacify the left ventricle. Facility Location: [facility] Indication: CHF Re-assess RV function Procedure Oysterman: Agatha Negrete RDCS Ordering Provider: Melodie Maya MD Reading Physician: Willie Villa MD Reading Group: [employer] Conclusions Left Ventricle: ? ? Left ventricle is normal in size. ? ? Normal global systolic left ventricular function. ? ? EF range is 65 % -70 %. ? ? Left ventricle wall thickness is normal. ? ? There are no regional wall motion abnormalities. Right Ventricle: ? ? Right ventricular systolic function is reduced. Overall Conclusions: ? ? This is a Limited study. No dopplers were performed. Patient: LOC LEON Study Date: 09/30/2020 09:15 AM Page 1 of 2 Follow up: Findings Left Ventricle: Left ventricle is normal in size. Normal global systolic left ventricular function. EF evaluated by biplane method of disks. Left ventricle wall thickness is normal. There are no regional wall motion abnormalities. Right Ventricle: Mildly-moderately dilated right ventricle. Right ventricular wall thickness is normal. Right ventricular systolic function is reduced. Left Atrium: The left atrium is normal in size. Right Atrium: The right atrium is normal in size. Mitral Valve: Mitral leaflets exhibit normal cuspal separation. There is mitral annular calcification. Aortic Valve: Aortic valve is poorly visualized. Aortic leaflets exhibit reduced mobility. Tricuspid Valve: Tricuspid valve leaflets are normal. Pulmonic Valve: Pulmonic leaflets exhibit normal cuspal separation. Aorta: The aorta is normal. Great Vessels: IVC: The inferior vena cava is normal in size and course. Pericardium: The pericardium is normal in appearance. Clinical Data Comment: Hx of HTN, DM, HLD, CAD, TIA, A-fib Measurements Anatomy Label Value Normal Value Left Ventricle EF lower range (%) 65 % Left Ventricle EF upper range (%) 70 % Right Ventricle RVDd, 2D 3.6 cm (1.9cm - 3.8cm) (No Signature Object) Patient: LOC LEON Study Date: 09/30/2020 09:15 AM Page 2 of 2 Melodie Maya MD ECHO ORDERABLES [facility] * VAS BILATERAL VENOUS DUPLEX LE (09/28/2020 2:04 PM CDT) Only the most recent of2 resultswithin the time period is included. Anatomical Region Laterality Modality Lower Extremity Ultrasound 09/28/2020 1:17 PM CDT Narrative Procedure Note Adan Pinzon MD - 09/28/2020 [facility] [address] [place] [address] Lower Extremity Venous Ultrasound Report Pat.Name: LOC LEON Pat.ID: [id number] .Date: 09/28/2020 Exam Time: 1:17:00 PM Study Type:LE Venous Age: 7 1940,79Y Sex: FEMALE Sonogrphr: Raghu Mccray RVT Pat. Stat.:Inpatient Room: [facility] Reason for Study: I26.99 PE, other, unspecified chronicity, unspecified whether acute cor pulmonale present, I50.9 Acute CHF, unspecified type History / Clinical: Hypertension, Diabetes, Coronary artery disease, Obesity, Atrial fibrillation, Hyperlipidemia, TIA, Breast cancer Procedures: Lower Extremity Venous - Bilateral Race: 1 Visit ID: [id number] ++++++++++++++++++++++++++++++++++++ SUMMARY: ++++++++++++++++++++++++++++++++++++ There is no evidence of an acute deep or superficial venous thrombosis in either the right or left lower extremity. ++++++++++++++++++++++++++++++++++++ FINDINGS: ++++++++++++++++++++++++++++++++++++ Procedure: Venous duplex imaging of both lower extremities was performed using color flow and spectral Doppler analysis. Study Quality: This study is of adequate technical quality. Bilateral: All vessels seen appear patent and compressible. There was spontaneous and phasic flow seen in all the proximal major veins of both lower extremities. Signed 09/28/2020 03:58 PM Adan Pinzon MD Ryan He MD VASCULAR L AB ORDERABLES * PTH RELATED PEPTIDE (09/28/2020 1:04 PM CDT) PTH Related Peptide <2.0 pmol/L 10/04 4:10 PM CDT [facility] ([facility]) Comment: This test was developed and its performance characteristics [facility]. It has not been cleared or approved by the Food and Drug Administration. Reference Range: All Ages: <2.0 The PTHrP assay should not be used to exclude cancer or screen tumor patients for humoral hypercalcemia of malignancy (HHM). The results should always be assessed in conjunction with the patient's medical history, clinical examination, and other findings. If test results are clinically discordant, please contact the laboratory. Blood BLOOD SPECIMEN / Unknown Venipuncture / Unknown 09/28/2020 1:04 PM CDT 09/28/2020 1:15 PM CDT Narrative [facility] ([facility]) - 10/04/2020 4:10 PM CDT Performed at: ??01 - [facility] [address] [place] [address] ??[id number] Equine Intern: Thaddeus Ocampo MD, Phone: ??[phone] Ryan He MD LAB - CHEM ISTRY ORDERABLES [facility] (PSYCHIATRIC) [address] [place] [address] * VITAMIN D 1,25 DIHYDROXY (09/28/2020 1:04 PM CDT) Calcitriol (1,25 di-OH Vit D) 41.9 19.9 - 79.3 pg/mL 09/30/2020 1:07 PM CDT [facility] ([facility]) Blood BLOOD SPECIMEN / Unknown Venipuncture / Unknown 09/28/2020 1:04 PM CDT 09/28/2020 1:15 PM CDT Narrative [facility] ([facility]) - 09/30/2020 1:07 PM CDT Performed at: ??01 - [facility] ??[id number] Equine Intern: Lo Luna MD, Phone: ??[phone] Ryan He MD LAB - CHEM ISTRY ORDERABLES [facility]) [address] [place] [address] * IR TRANSLUM THROMBECTOMY ARTERIAL (09/28/2020 10:48 AM CDT) Anatomical Region Laterality Modality Abdomen X-Ray Angiograph y Impressions 10/19/2020 6:42 PM CDT Pulmonary thrombectomy from the main trunk and bilateral pulmonary arteries, as described. *Reading Radiologist: Nelson Azar on 10/19/2020 at 6:42 PM Narrative 10/19/2020 6:42 PM CDT Procedure: 1. Ultrasound-guided access right common femoral vein. 2. Inferior venacavogram. 3. Suction thrombectomy interlobar pulmonary artery. 4. Suction thrombectomy right main pulmonary artery. 5. Suction thrombectomy left main pulmonary artery. 6. Suction thrombectomy main trunk pulmonary artery. HISTORY: Submassive PE with sagittal pulmonary emboli and significant bilateral lobar and distal PE right heart strain. The patient's medications were reviewed prior to the procedure. Adobe Block Maker: Nelson Azar M.D. Fluoroscopy time: 25 minutes. 270 images obtained and submitted. Sedation: Monitored, moderate sedation provided by the nursing staff was required for one hour and 14 minutes. 1.5 mg of Versed and 75 mcg of fentanyl were administered intravenously. Procedure description and findings: Informed, written consent was obtained. The patient was brought to the procedure area and placed supine. The right groin was prepped and draped in usual sterile fashion. Maximal sterile barrier was used which includes cap, and mask, and sterile gloves, and sterile gown, and a large sterile sheet, and hand hygiene, and 2% chlorhexidine for cutaneous antisepsis. Sterile ultrasound probe cover and gel used, if applicable. Ultrasound demonstrated a patent compressible right common femoral vein. Under direct ultrasound guidance, permanent images saved to the patient's medical record, the right femoral vein was accessed with a micropuncture set. A wire was passed to the inferior vena cava under fluoroscopic guidance. A 6 Urdu sheath was inserted. An inferior venacavogram was performed. Inferior venacavogram showed no IVC or thrombus within the right iliac vein. The right heart was negotiated and an superstiff Amplatz wire passed into the right lower lobe pulmonary artery. Exchange is made for a 24 Urdu sheath. The Inari catheter was then passed over the wire into the main trunk pulmonary artery and suction thrombectomy was performed. The catheter was advanced into the right main pulmonary artery and suction thrombectomy was performed. Catheter was then advanced into the interlobar pulmonary artery and suction thrombectomy performed. Considerable clot was aspirated. Next, a jewel bearing polisher catheter was negotiated and the wire passed into the left lower lobe pulmonary artery. Pulmonary catheter was reinserted and then advanced into the left main pulmonary artery and suction thrombectomy performed. Considerable amount clot was aspirated. Following this pulmonary angiogram was performed showing brisk flow bilaterally. All catheters and wires were removed. Pressure was held at the right groin achieving hemostasis. The patient tolerated the procedure well and there are no immediate complications. Nelson Azar MD IR ORDERABLES * HEMOGLOBIN (09/28/2020 10:24 AM CDT) Hemoglobin 12.3 12.0 - 15.6 gm/dL 09/28/2020 10:41 AM CDT [facility] Blood BLOOD SPECIMEN / Unknown Venipuncture / Unknown 09/28/2020 10:24 AM CDT 09/28/2020 10:26 AM CDT Nelson Azar MD LAB - HEMATOLOGY ORD ERABLES [facility] [address] [place] [address] * (ABNORMAL) PT PTT PANEL (09/28/2020 1:55 AM CDT) Only the most recent of2 resultswithin the time period is included. PT 13.9 12.1 - 14.8 sec 09/28/2020 2:16 AM CDT [facility] INR 1.1 0.9 - 1.1 09/28/2020 2:16 AM CDT [facility] PTT 101.4(H) 23.0 - 38.4 sec 09/28/2020 2:16 AM CDT [facility] Blood BLOOD SPECIMEN / Unknown Venipuncture / Unknown 09/28/2020 1:55 AM CDT 09/28/2020 2:01 AM CDT Narrative [facility] - 09/28/2020 2:16 AM CDT Conventional Warfarin Anticoagulant Therapy: INR Reference Range: ??2.0-3.0 Intensive Warfarin Anticoagulant Therapy: INR Reference Range: ? 2.5-3.5 Heparin Therapeutic Range for PTT: ??71.0 - 109.0 seconds. Ryan He MD LAB - COAG ULATION ORDERABLES Performing Organization Address [facility] [address]/[facility] Co de Phone Number [facility] [address] [place] [address] * (ABNORMAL) URINE MICROSCOPIC ONLY (09/27/2020 8:31 AM CDT) RBC UA 3-5 None Seen, 0-2, 3-5 # /hpf 09/27/2020 9:14 AM CDT [facility] WBC UA 51-100(A) None Seen, 0-5 # /hpf 09/27/2020 9:14 AM CDT [facility] Amorphous Crystals Occasional (A) None seen /hpf 09/27/2020 9:14 AM CDT [facility] Bacteria UA 3+(A) None Seen 09/27/2020 9:14 AM CDT [facility] Squamous Epithelial Cells None Seen None Seen, 0-2, 3-5 /hpf 09/27/2020 9:14 AM CDT [facility] Mucus UA 1+ /LPF 09/27/2020 9:14 AM CDT [facility] Urine URINE SPECIMEN OBTAINED VIA INDWELLING URINARY CATHETER / Unknown Collection / Unknown 09/27/2020 8:31 AM CDT 09/27/2020 9:00 AM CDT Narrative [facility] - 09/27/2020 9:14 AM CDT Fariba Mendes APRN-RESIDENT CARE AID LAB - URINALY SIS ORDERABLES Performing Organization Address [facility] [address]/[facility] Co de Phone Number [facility] [address] [place] [address] * (ABNORMAL) C-REACTIVE PROTEIN (09/27/2020 4:55 AM CDT) C-Reactive Protein 0.97(H) <=0.50 mg/dL 09/27/2020 7:57 AM CDT [facility] Blood BLOOD SPECIMEN / Unknown Venipuncture / Unknown 09/27/2020 4:55 AM CDT 09/27/2020 7:39 AM CDT Sheyla Myers Clare PRINT SUPPORT SPECIALIST-RESIDENT CARE AID LAB - CHEMISTRY O RDERABLES [facility] [address] [place] [address] * SARS-COV-2 (COVID-19) IN HOUSE (09/26/2020 10:57 PM CDT) Pathologist [facility] COVID-19 PCR Not detected Not detected 09/27/2020 7:46 AM CDT [facility] Microbiology SPECIMEN FROM NASOPHARYNGEAL STRUCTURE / Unknown Collection / Unknown 09/26/2020 10:57 PM CDT 09/26/2020 11:00 PM CDT Narrative [facility] - 09/27/2020 7:46 AM CDT This nucleic acid amplification assay performance was validated by [facility]. This test has been authorized by the Food and Drug administration (FDA)under an Emergency??Use Authorization (EUA). This test has been validated in accordance with the FDA's guidance document Policy for Diagnostic Testing in Laboratories Certified to perform High Complexity Testing under CLIA prior to Emergency Use Authorization for Coronavirus Disease-2019 during the Public Health Emergency issued on July 17, 2019. FDA independent review of this validation is pending. This test is only authorized for the duration of time the declaration that circumstances exist justifying the authorization of emergency use of in vitro diagnostic tests for detection of SARS-CoV-2 virus and/or diagnosis of COVID-19 infection under section 564(b)(1) of the Act, 21 U.S.C 360bbb-3 (b)(1), unless the authorization is terminated or revoked sooner. Fact Sheets for this EUA assay are available upon request. Emily Cedeno MD LAB - MICROBIOLOGY O RDERABLES Performing Organization Address City/[facility] [address]/ZIP Co de Phone Number [facility] [address] [place] [address], [facility] [phone] * (ABNORMAL) D-DIMER (09/26/2020 7:27 PM CDT) Only the most recent of2 resultswithin the time period is included. D-Dimer 1.32(H) 0.27 - 0.50 ug/mL FEU 09/26/2020 8:01 PM CDT [facility] Blood BLOOD SPECIMEN / Unknown Venipuncture / Unknown 09/26/2020 7:27 PM CDT 09/26/2020 7:51 PM CDT Narrative [facility] - 09/26/2020 8:01 PM CDT In the absence of clinical symptoms, a value less than or equal to 0.5 mcg/mL FEU significantly decreases the probability of PE/DVT (negative predictive value >95%). 1 mcg/ml FEU = 1 Fibrinogen Equivalent Unit (approximates 0.5 mcg/mL of D- dimer). Emily Cedeno MD LAB - COAGULATION OR DERABLES Performing Organization Address [facility] [address]/[facility] Co de Phone Number [facility] [address] [place] [address] * (ABNORMAL) B-TYPE NATRIURETIC PEPTIDE (09/26/2020 7:27 PM CDT) Pathologist [facility] BNP 205(H) <=100 pg/mL 09/26/2020 8:00 PM CDT [facility] Blood BLOOD SPECIMEN / Unknown Venipuncture / Unknown 09/26/2020 7:27 PM CDT 09/26/2020 7:33 PM CDT Fariba Mendes APRN-RESIDENT CARE AID LAB - LOSS CONTROL MANAGER RY ORDERABLES Performing Organization Address [facility] [address]/[facility] Co de Phone Number [facility] [address] [place] [address] * XR CHEST PA AND LATERAL (09/26/2020 4:21 PM CDT) Only the most recent of4 resultswithin the time period is included. Anatomical Region Laterality Modality Chest Radiographic Mireya ging 09/26/2020 4:23 PM CDT Impressions 09/26/2020 4:24 PM CDT No active disease *Reading Radiologist: Julian Sheth on 09/26/2020 at 4:24 PM Narrative 09/26/2020 4:24 PM CDT Chest Two Views History: Shortness of breath 79-year-old female Comparison:September 15, 2020 Findings: The heart size is normal. Atherosclerotic aorta. Surgical clips left breast. No pneumothorax.. The pulmonary vessels are normal. The lungs are clear. No lobar consolidation or mobile pleural effusion. No paraspinal soft tissue swelling. No hilar enlargement or major airway displacement. ??Thoracic spondylosis. Procedure Note Julian Sheth MD - 09/26/2020 Chest Two Views History: Shortness of breath 79-year-old female Comparison:September 15, 2020 Findings: The heart size is normal. Atherosclerotic aorta. Surgical clips left breast. No pneumothorax.. The pulmonary vessels are normal. The lungs are clear. No lobar consolidation or mobile pleural effusion. No paraspinal soft tissue swelling. No hilar enlargement or major airway displacement. Thoracic spondylosis. IMPRESSION No active disease *Reading Radiologist: Julian Sheth on 09/26/2020 at 4:24 PM Fariba Mendes PRINT SUPPORT SPECIALIST-RESIDENT CARE AID DIAGNOSTIC IM AGING ORDERABLES * MRI HIP LEFT WO CONTRAST (09/17/2020 1:56 PM CDT) Anatomical Region Laterality Modality Lower Extremity Magnetic Resonan ce 09/18/2020 7:59 AM CDT Impressions 09/18/2020 9:47 AM CDT PREDOMINANTLY LOW SIGNAL MILDLY HETEROGENEOUS MASS SITUATED WITHIN THE CENTRAL PORTION OF THE LEFT GLUTEUS MEDIUS MUSCLE DESCRIBED. PRIMARY CONSIDERATIONS ARE AN ACUTE OR EARLY SUBACUTE INTRAMUSCULAR HEMATOMA VERSUS NEOPLASM. FOLLOW-UP MR IMAGING WITH INTRAVENOUS CONTRAST IN 1-2 MONTHS IS RECOMMENDED FOR REASSESSMENT. GRADE 1 STRAIN LEFT TENSOR FASCIA JAILYN MUSCLE. LEFT TROCHANTERIC BURSITIS. DIFFUSE SUBCUTANEOUS SOFT TISSUE SWELLING LATERAL LEFT HIP. NO ACUTE OSSEOUS ABNORMALITY. Edited by Angela Rodgers on 09/18/2020 9:45 AM *Reading Radiologist: Shakira García on 09/18/2020 at 9:47 AM Narrative 09/18/2020 9:47 AM CDT MRI LEFT HIP WITHOUT CONTRAST CLINICAL INDICATION: Progressive worsening left hip pain and limited range of motion. COMPARISON: Left hip x-ray series 09/14/2020 TECHNIQUE: Multiplanar multisequence MR imaging of the left hip was performed without contrast. The right hip joint is included for comparison in the axial and coronal sequences. FINDINGS: 3.4 x 3.5 x 4.4 cm predominantly low T1 and T2 signal mass situated within the central portion of the left gluteus medius muscle. The T1 signal is isointense to skeletal muscle. The lesion has a single small ovoid focus of T1 and T2 hyperintensity and a few additional small interspersed foci of T2 hyperintensity. There is intense edema within the left gluteus medius muscle fibers adjacent to the mass. The MR appearance is nonspecific and may represent and acute to early subacute intramuscular hematoma versus neoplasm. Intense edema noted within the left tensor fascia jailyn muscle and adjacent fat deep to the iliotibial band consistent with a grade 1 muscle strain. No other sites of altered muscle signal. Diffuse nonloculated subcutaneous soft tissue swelling throughout the lateral left hip. Mild fluid-filled distention of the left trochanteric bursa. Anatomic osseous alignment. No cartilage tears or defects. No bone marrow edema. No acute or subacute fracture. No periostitis or cortical destruction. No joint effusion. Signal and morphology of the gluteal, iliopsoas, hamstring, rectus femora, and adductor tendons are within normal limits. Iliofemoral ligament, ischiofemoral ligament, and ligamentum teres are intact. Acetabular labrum normal in signal and morphology. Signal of the neurovascular structures within normal limits. Mild free pelvic fluid. Schmitt catheter decompresses the bladder. Moderate stool-filled distention of the rectum. Procedure Note Shakira García MD - 09/18/2020 MRI LEFT HIP WITHOUT CONTRAST CLINICAL INDICATION: Progressive worsening left hip pain and limited range of motion. COMPARISON: Left hip x-ray series 09/14/2020 TECHNIQUE: Multiplanar multisequence MR imaging of the left hip was performed without contrast. The right hip joint is included for comparison in the axial and coronal sequences. FINDINGS: 3.4 x 3.5 x 4.4 cm predominantly low T1 and T2 signal mass situated within the central portion of the left gluteus medius muscle. The T1 signal is isointense to skeletal muscle. The lesion has a single small ovoid focus of T1 and T2 hyperintensity and a few additional small interspersed foci of T2 hyperintensity. There is intense edema within the left gluteus medius muscle fibers adjacent to the mass. The MR appearance is nonspecific and may represent and acute to early subacute intramuscular hematoma versus neoplasm. Intense edema noted within the left tensor fascia jailyn muscle and adjacent fat deep to the iliotibial band consistent with a grade 1 muscle strain. No other sites of altered muscle signal. Diffuse nonloculated subcutaneous soft tissue swelling throughout the lateral left hip. Mild fluid-filled distention of the left trochanteric bursa. Anatomic osseous alignment. No cartilage tears or defects. No bone marrow edema. No acute or subacute fracture. No periostitis or cortical destruction. No joint effusion. Signal and morphology of the gluteal, iliopsoas, hamstring, rectus femora, and adductor tendons are within normal limits. Iliofemoral ligament, ischiofemoral ligament, and ligamentum teres are intact. Acetabular labrum normal in signal and morphology. Signal of the neurovascular structures within normal limits. Mild free pelvic fluid. Schmitt catheter decompresses the bladder. Moderate stool-filled distention of the rectum. IMPRESSION PREDOMINANTLY LOW SIGNAL MILDLY HETEROGENEOUS MASS SITUATED WITHIN THE CENTRAL PORTION OF THE LEFT GLUTEUS MEDIUS MUSCLE DESCRIBED. PRIMARY CONSIDERATIONS ARE AN ACUTE OR EARLY SUBACUTE INTRAMUSCULAR HEMATOMA VERSUS NEOPLASM. FOLLOW-UP MR IMAGING WITH INTRAVENOUS CONTRAST IN 1-2 MONTHS IS RECOMMENDED FOR REASSESSMENT. GRADE 1 STRAIN LEFT TENSOR FASCIA JAILYN MUSCLE. LEFT TROCHANTERIC BURSITIS. DIFFUSE SUBCUTANEOUS SOFT TISSUE SWELLING LATERAL LEFT HIP. NO ACUTE OSSEOUS ABNORMALITY. Edited by Angela Rodgers on 09/18/2020 9:45 AM *Reading Radiologist: Shakira García on 09/18/2020 at 9:47 AM Lavelle Carrera IV, MD MR ORDERABLES * CT LUMBAR SPINE NON CONTRAST (09/16/2020 9:56 AM CDT) Anatomical Region Laterality Modality Spine Computed Tomogra phy 09/16/2020 10:0 3 AM CDT Impressions 09/16/2020 10:08 AM CDT Scoliosis Multilevel degenerative changes Mild anterolisthesis L4 upon L5 L4-5 mild central stenosis Other findings as above *Reading Radiologist: Chi Mendieta on 09/16/2020 at 10:08 AM Narrative 09/16/2020 10:[address] lumbar spine noncontrast CT coronal and sagittal reconstructed images INDICATION: Low back pain lumbar radiculopathy. TECHNIQUE: 3 mm axial images through the lumbar spine with coronal and sagittal reconstructed images. Noncontrast. COMPARISON: Prior CT abdomen pelvis from 12/17/2017. FINDINGS: Bony demineralization is demonstrated. There is mild anterolisthesis L4 upon L5. Left convex mid lumbar scoliosis is present. Endplate hypertrophic degenerative changes are identified. Vacuum disc phenomenon is present at L1-2 and L2-3. There is otherwise no acute fracture or subluxation. At L2-3 there is bilateral facet arthropathy with bilateral neural foraminal narrowing. At L3-4 there is right neural foraminal narrowing with bilateral facet arthropathy. At L4-5 there is diffuse annular bulge with mild central stenosis. There is associated right lateral recess and neural foraminal narrowing. Bilateral facet arthropathy is present at this level. There are degenerative changes of the sacroiliac joints bilaterally. There is atherosclerotic calcification of the abdominal aorta. The patient is status post cholecystectomy. Procedure Note Chi Mendieta MD - 09/16/2020 CT lumbar spine noncontrast CT coronal and sagittal reconstructed images INDICATION: Low back pain lumbar radiculopathy. TECHNIQUE: 3 mm axial images through the lumbar spine with coronal and sagittal reconstructed images. Noncontrast. COMPARISON: Prior CT abdomen pelvis from 12/17/2017. FINDINGS: Bony demineralization is demonstrated. There is mild anterolisthesis L4 upon L5. Left convex mid lumbar scoliosis is present. Endplate hypertrophic degenerative changes are identified. Vacuum disc phenomenon is present at L1-2 and L2-3. There is otherwise no acute fracture or subluxation. At L2-3 there is bilateral facet arthropathy with bilateral neural foraminal narrowing. At L3-4 there is right neural foraminal narrowing with bilateral facet arthropathy. At L4-5 there is diffuse annular bulge with mild central stenosis. There is associated right lateral recess and neural foraminal narrowing. Bilateral facet arthropathy is present at this level. There are degenerative changes of the sacroiliac joints bilaterally. There is atherosclerotic calcification of the abdominal aorta. The patient is status post cholecystectomy. IMPRESSION Scoliosis Multilevel degenerative changes Mild anterolisthesis L4 upon L5 L4-5 mild central stenosis Other findings as above *Reading Radiologist: Chi Mendieta on 09/16/2020 at 10:08 AM Mahad Walsh MD CT ORDERABLES * XR PELVIS W LEFT HIP 2VW (09/14/2020 5:06 PM CDT) Anatomical Region Laterality Modality Pelvis Radiographic Mireya ging 09/14/2020 5:10 PM CDT Narrative 09/14/2020 5:11 PM CDT EXAM: XR PELVIS W LEFT HIP 2VW*[id number] INDICATION: Pain in left hip, pelvic pain COMPARISON: none available FINDINGS: There is joint space narrowing at bilateral hips with no fracture, dislocation or osseous destruction. *Reading Radiologist: Adan Norton on 09/14/2020 at 5:11 PM Procedure Note Adan Norton MD - 09/14/2020 EXAM: XR PELVIS W LEFT HIP 2VW*[id number] INDICATION: Pain in left hip, pelvic pain COMPARISON: none available FINDINGS: There is joint space narrowing at bilateral hips with no fracture, dislocation or osseous destruction. *Reading Radiologist: Adan Norton on 09/14/2020 at 5:11 PM José Luis Mederos PA-C DIAGNOSTIC IMAGING ORDERABLES * VAS LEFT VENOUS DUPLEX LE (09/14/2020 4:36 PM CDT) Only the most recent of2 resultswithin the time period is included. Anatomical Region Laterality Modality Lower Extremity, Upper Extremity Ultrasound 09/14/2020 4:12 PM CDT Narrative Procedure Note Claude Engel MD - 09/15/2020 [facility] [address] [place] [address] Lower Extremity Venous Ultrasound Report Pat.Name: LOC LEON Pat.ID: [id number] St.Date: 09/14/2020 Exam Time: 4:12:00 PM Study Type:LE Venous Age: 7 1940,79Y Sex: FEMALE Sonogrphr: Dwaine Coon RVT Pat. Stat.:Outpatient Room: ED 28 Reason for Study: Left hip pain History / Clinical: Hypertension, Diabetes, Coronary artery disease, Obesity, Atrial fibrillation, Hyperlipidemia, TIA, Breast cancer Procedures: Lower Extremity Venous - Left Race: 2 Visit ID: [id number] ++++++++++++++++++++++++++++++++++++ SUMMARY: ++++++++++++++++++++++++++++++++++++ There is no evidence of an acute deep or superficial venous thrombosis in the left lower extremity. ++++++++++++++++++++++++++++++++++++ FINDINGS: ++++++++++++++++++++++++++++++++++++ Procedure: Venous duplex imaging of the left lower extremity was performed using color flow and spectral Doppler analysis. The contralateral common femoral vein was also examined. Study Quality: This study is of adequate technical quality. Lt Leg: All vessels seen appear patent and compressible. There was spontaneous and phasic flow seen in all major veins of the left lower extremity. Appropriate augmentation with distal compression. Incidental finding of a non vascular fluid filled mass that is anechoic in the anterior proximal thigh measuring 1.06 cm by 1.35 cm. The right common femoral vein demonstrated phasic and spontaneous flow. Comments: Technologist findings were called to Chi Frances PA-C at 16:43 pm. Signed 09/15/2020 01:21 PM Claude Engel MD José Luis Chi YOUNG L AB ORDERABLES * DIABETES EYE EXAM (07/27/2020) Only the most recent of4 resultswithin the time period is included. Scanned Document HEALTH MAINTENANCE * C DIFFICILE CYTOTOXIN (05/23/2020 9:10 AM HAND WORKER) Cytotoxin Assay Stool NOT DETECTED [facility] Comment: REFERENCE RANGE: NOT DETECTED Per CDC the Clostridium difficile cytotoxicity assay, order code 4408, has served as a historical gold standard for diagnosing clinical significant disease caused by Clostridium difficile, however, it is not timely for routine diagnosis. [facility] and [facility] guidelines now recognize either two step testing using Clostridium difficile toxin/Glutamate Dehydrogenase (GDH) with Reflex to PCR, order code 66028 or Clostridium difficile toxin B, Qualitative real time PCR, test code 16210 to be more sensitive and timely methods for the diagnosis of C. difficile colitis. For additional information, please refer to http://education.BloomBoard/faq/DYT038 (This link is being provided for informational/ educational purposes only.) Test Performed at: [facility] [address] [place] [address] ??[phone] Asa ROBISON Stool STOOL SPECIMEN / Unknown 05/23/2020 9:10 AM HAND WORKER 05/23/2020 9:10 AM HAND WORKER Angela Truong MD LAB - MICROBIOLOGY ORDERABLES [facility] [address] [place] [address] * O+P PANEL (05/23/2020 9:10 AM HAND WORKER) Trichrome (1) [facility] Comment: ??OVA AND PARASITES, CONC AND PERM SMEAR ?Micro Number: ?[id number] ??Test Status: ? Final ??Specimen Source: ?? FECES ??Specimen Quality: ??Adequate ??CONCENTRATION 1: ?? No ova or parasites seen ??TRICHROME 1: ? No ova or parasites seen ? Routine Ova and Parasite exam may not detect some ? parasites that occasionally cause diarrheal ? illness. Test code(s) 18565 (Cryptosporidium Ag., ? DFA) and/or 99471 (Cyclospora and Isospora Exam) ? may be ordered to detect these parasites. One ? negative sample does not necessarily rule out ? the presence of a parasitic infection. ? For additional information, please refer to ? https://Sumoing.HyperWeek/faq/WLL577 ? (This link is being provided for informational/ ? educational purposes only.) Test Performed at: [facility] ??[phone] SENDY FABIAN MD Stool STOOL SPECIMEN / Unknown 05/23/2020 9:10 AM HAND WORKER 05/23/2020 9:10 AM HAND WORKER Angela Truong MD LAB - MICROBIOLOGY ORDERABLES Performing Organization Address [facility]/State/ZIP Co de Phone Number [address] [address] * CULTURE STOOL PANEL (05/23/2020 9:10 AM HAND WORKER) EIA [facility] Comment: ??SHIGA TOXINS, EIA W/RFL TO E.COLI O157 CULTURE ?Micro Number: ?[id number] ??Test Status: ? Final ??Specimen Source: ?? STOOL ??Specimen Quality: ??Adequate ??Shiga Toxin: ? Not Detected ??Reference Range: ?? Not Detected ?? Culture [facility] Comment: ??CAMPYLOBACTER, CULTURE ?Micro Number: ?[id number] ??Test Status: ? Final ??Specimen Source: ?? STOOL ??Specimen Quality: ??Adequate ??Result: ?No enteric Campylobacter isolated Culture [facility] Comment: ??SALMONELLA AND SHIGELLA, CULTURE ?Micro Number: ?[id number] ??Test Status: ? Final ??Specimen Source: ?? STOOL ??Specimen Quality: ??Adequate ??Result: ?No Salmonella or Shigella isolated Test Performed at: [facility] ??[phone] SENDY FABIAN MD Stool STOOL SPECIMEN / Unknown 05/23/2020 9:10 AM HAND WORKER 05/23/2020 9:10 AM HAND WORKER Angela Truong MD LAB - MICROBIOLOGY ORDERABLES Performing Organization Address [facility]/State/[facility] Co de Phone Number [address] [address] * LACTOFERRIN FECAL QUALITATIVE (05/23/2020 9:10 AM HAND WORKER) Lactoferrin Fecal [facility] Comment: ??LACTOFERRIN, QL, STOOL ?Micro Number: ?[id number] ??Test Status: ? Final ??Specimen Source: ?? STOOL ??Specimen Quality: ??Adequate ??Lactoferrin: ? Negative ? Lactoferrin in the stool is a marker for fecal ? leukocytes and is a non-specific indicator of ? intestinal inflammation that may be detected in ? patients with acute infectious colitis or ? inflammatory bowel disease. The diagnosis of an ? acute infectious process or active IBD cannot be ? established solely on the basis of a positive ? result. This test may not be appropriate for ? immunocompromised persons. In addition, this test ? is not FDA cleared for patients with a history ? of HIV and/or Hepatitis B and C, patients with a ? history of infectious diarrhea (within 6 months), ? and patients having had a colostomy and/or ? ileostomy within 1 month. Test Performed at: [facility] [address] [place], [place] ??[phone] SENDY FABIAN MD Stool STOOL SPECIMEN / Unknown 05/23/2020 9:10 AM HAND WORKER 05/23/2020 9:10 AM HAND WORKER Angela Truong MD LAB - BODY FLUID OR DERABLES [facility] [id number] [place] [address] * TISSUE TRANSGLUTAMINASE AB IGA (05/05/2020 1:53 PM HAND WORKER) TTG Antibody IgA 1 <4 U/mL [facility] Comment: ?Value ??Interpretation ?<4 U/mL: No Antibody Detected ? >or=4 U/mL: Antibody Detected Test Performed at: [facility]/[address] ??[phone] ANGELA AGUILLON MD,PHD Blood BLOOD SPECIMEN / Unknown 05/05/2020 1:53 PM HAND WORKER 05/05/2020 1:53 PM HAND WORKER Angela Truong MD LAB - SEROLOGY ORDE RICHIE Performing Organization Address [facility] Phone Number [facility] [address] [place] [address] * IGA BLOOD (05/05/2020 1:53 PM HAND WORKER) Pathologist [facility] IgA 220 70 - 320 mg/dL [facility] Comment: Test Performed at: [facility] [address] ??[phone] RUSSELL HAMLIN DO,MPH Blood BLOOD SPECIMEN / Unknown 05/05/2020 1:53 PM HAND WORKER 05/05/2020 1:53 PM HAND WORKER Angela Truong MD LAB - CHEMISTRY ORD SAMANTA Performing Organization Address [facility] de Phone Number [facility] [address] [place] [address] * MAMMO BILAT DIAGNOSTIC (02/23/2020 10:05 AM CDT) Only the most recent of2 resultswithin the time period is included. Anatomical Region Laterality Modality Breast Bilateral Mammography 02/23/2020 10:0 8 AM CDT Narrative 02/23/2020 10:24 AM CDT DIGITAL BILATERAL DIAGNOSTIC MAMMOGRAMS WITH CAD AND 3-D TOMOSYNTHESIS DATE: 02/23/2020 9:32 AM PREVIOUS EXAM DATE: 06/22/2017, 09/14/2018 INDICATION: Screening. TECHNIQUE: Bilateral craniocaudad (CC) and mediolateral oblique (MLO) views. Images were interpreted with the aid of CAD. 3-D tomosynthesis images were performed. TECHNOLOGIST: Mandy Zuluaga, RT(R)(M)(BS) TISSUE DENSITY: Scattered fibroglandular densities. FINDINGS: Posttreatment changes are noted left breast. There is no mass nor microcalcification nor significant new finding in either breast. Vascular calcifications are noted. ASSESSMENT: (BI-RADS category 2) Benign findings. RECOMMENDATIONS: Follow-up one year if clinically indicated. The above findings should be correlated with physical examination. A relatively nonspecific study should not preclude additional evaluation if suspicious findings are present clinically. An [employer]. [facility] utilizes [employer] as a reminder system to notify patients of their next recommended mammograms. Edited by Susan Velazquez on 02/23/2020 10:15 AM *Reading Radiologist: Dianna Simmons on 02/23/2020 at 10:24 AM Enrique Gonzalez MD MAMMO ORDERABLES * URINALYSIS AUTO - POINT OF CARE (AMB) STL (12/01/2019) Only the most recent of2 resultswithin the time period is included. Clarity UA POCT clear Color UA POCT yellow Leukocyte UA 3+ Negative Nitrite UA POCT - Negative Urobilinogen UA 0.2 0.1 - 1.0 Protein UA POCT - Negative pH UA 6.0 5.0 - 8.0 pH units Blood UA 3+ Negative Specific [place] UA POCT 1.005 1.002 - 1.030 Ketone UA - Negative Bilirubin UA POCT - Negative Glucose UA 2+ Negative Expiration Date [address] Lot # [id number] QC Verified Yes Yes Urine URINE / Unknown 12/01/2019 Hussain Norris MD LAB - POINT OF CARE ORDERABLES * (ABNORMAL) LIPID PROFILE (11/26/2019 8:55 AM CDT) Only the most recent of3 resultswithin the time period is included. Cholesterol 124 <200 mg/dL [facility] INSURANCE BILL Triglycerides 183(H) <150 mg/dL [facility] INSURANCE BILL HDL Cholesterol 32(L) >40 mg/dL [facility] INSURANCE BILL VLDL Calculated 37(H) <=30 mg/dL [facility] INSURANCE BILL LDL Calculated 55 <130 mg/dL [facility] INSURANCE BILL Comment: Not calculated FASTING Blood BLOOD SPECIMEN / Unknown 11/26/2019 8:55 AM CDT 11/26/2019 Narrative Resulting Agency Comment Lab Testing performed at: [facility] ?? [place] [id number] Theresa Camargo MD LAB - CHEMISTRY ROWAN QUIROZ [facility] INSURANCE BILL [address] [place] [address] * (ABNORMAL) GLUCOSE - POINT OF CARE (AMB) STL (04/13/2019) Glucose 227(A) 60 - 100 mg/dL Lot # 0 Expiration Date 01/21/2020 QC Verified Yes Yes Blood BLOOD SPECIMEN / Unknown 04/13/2019 Asha Narvaez APRN-[facility]IDENT [facility] LAB - POINT OF C ARE ORDERABLES * GROSS + MICRO EXAM (STL) (02/17/2019 10:51 AM CDT) Only the most recent of4 resultswithin the time period is included. Case Report Surgical Pathology Report ? Case: [id number] ? Authorizing Provider: ??Angela Truong MD ? Collected: ? 02/17/2019 10:51 AM ? Ordering Location: ? [facility] ?Received: ?02/17/2019 01:04 PM ? Pathologist: ? Shamika Vega MD ? Specimen: ?Polyp Colon ? 02/18/2019 10:53 AM [facility] Final Diagnosis Colon polyp, biopsy: -- Polypoid fragment of colonic mucosa with erosion and mixed inflammation -- No dysplasia -- See description 02/18/2019 10:53 AM [facility] Gross Description Received in formalin labeled with the patient? s name and, colon polyp, and consists of fragments of ayala tissue admixed with fecal material. The specimen measures 6 x 5 x 2 mm in aggregate. The specimen is submitted entirely in cassette A1. MC/na 02/18/2019 10:53 AM [facility] Microscopic Description Sections show multiple fragments of colonic mucosa, one of which demonstrates erosion with mixed lamina propria acute and chronic inflammation, acute cryptitis, and an acute necroinflammatory exudate. Features of chronicity are not identified. There is no evidence of dysplasia or malignancy. 02/18/2019 10:53 AM [facility] Disclaimer All histochemical and/or immunohistochemical results are interpreted with controls that demonstrate appropriate staining reactions before reporting results. Note on use of immunocytochemistry reagents: This test was developed and its performance characteristic determined by [facility], Department of Laboratory Medicine. It has not been cleared or approved by the U.S. Food and Drug Administration (FDA). The FDA has determined that such clearance or approval is not necessary. The test is used for clinical purpose. It should not be regarded as investigational or for research. This laboratory is certified to perform high complexity testing. 02/18/2019 10:53 AM CDT PSYCHIATRIC LABORATORY Embedded Images 02/18/2019 10:53 AM CDT PS[facility]IATRIC LABORATORY Pathology/Cytolo gy POLYP OF COLON / Unknown 02/17/2019 10:51 AM CDT 02/17/2019 1:04 PM CDT Angela Truong MD LAB - PATHOLOGY/CYT OLOGY ORDERABLES [facility] [address] [place] [address] * ENDOSCOPY, COLON, SCREENING (02/17/2019 9:45 AM CDT) Report Endoscopy POC _ Patient Name: Loc Leon ? Procedure Date: 02/17/2019 9:45 AM ? Date of : 1940 ?Admit Type: Outpatient Age: 78 ? Gender: Female Attending MD: Angela Truong MD _ Procedure: ? Colonoscopy Indications: ? Last colonoscopy: 2011, Positive Cologuard test Providers: ? Angela Truong MD (Doctor) Referring MD: ?Theresa Camargo MD (Referring MD) Medicines: ? Monitored Anesthesia Care Complications: ? No immediate complications. Estimated blood loss: None. _ Procedure: ? Pre-Anesthesia Assessment: ? - Prior to the procedure, a History and Physical was ? performed, and patient medications and allergies were ? reviewed. The patient is competent. The risks and benefits ? of the procedure and the sedation options and risks were ? discussed with the patient. All questions were answered ? and informed consent was obtained. Patient identification ? and proposed procedure were verified by the physician, the ? nurse and the pipeline engineer in the procedure room. Mental ? Status Examination: alert and oriented. Airway ? Examination: normal oropharyngeal airway and neck ? mobility. Respiratory Examination: clear to auscultation. ? CV Examination: normal. Prophylactic Antibiotics: The ? patient does not require prophylactic antibiotics. Prior ? Anticoagulants: The patient has taken Aspirin and Plavix ? (clopidogrel), last dose was 5 days prior to procedure. ? ASA Grade Assessment: III - A patient with severe systemic ? disease. After reviewing the risks and benefits, the ? patient was deemed in satisfactory condition to undergo ? the procedure. The anesthesia plan was to use monitored ? anesthesia care (MAC). Immediately prior to administration ? of medications, the patient was re-assessed for adequacy ? to receive sedatives. The heart rate, respiratory rate, ? oxygen saturations, blood pressure, adequacy of pulmonary ? ventilation, and response to care were monitored ? throughout the procedure. The physical status of the ? patient was re-assessed after the procedure. ? After I obtained informed consent, the scope was passed ? under direct vision. Throughout the procedure, the ? patient's blood pressure, pulse, and oxygen saturations ? were monitored continuously. The Colonoscope was ? introduced through the anus and advanced to the cecum, ? identified by appendiceal orifice and ileocecal valve. The ? colonoscopy was performed without difficulty. The patient ? tolerated the procedure well. The quality of the bowel ? preparation was excellent. The ileocecal valve, ? appendiceal orifice, and rectum were photographed. ? Findings: ? The digital rectal exam was normal. Pertinent negatives include no ? palpable rectal lesions. ? The rectum, cecum, appendiceal orifice and ileocecal valve appeared ? normal. ? Two sessile polyps were found in the sigmoid colon and ascending colon. ? The polyps were 5 to 6 mm in size. These polyps were removed with a hot ? snare. Resection and retrieval were complete. ? Two sessile polyps were found in the descending colon and transverse ? colon. The polyps were 2 to 3 mm in size. These polyps were removed with ? a cold biopsy forceps. Resection and retrieval were complete. _ ? Impression: ?- The rectum, cecum, appendiceal orifice and ileocecal ? valve are normal. ? - Two 5 to 6 mm polyps in the sigmoid colon and in the ? ascending colon, removed with a hot snare. Resected and ? retrieved. ? - Two 2 to 3 mm polyps in the descending colon and in the ? transverse colon, removed with a cold biopsy forceps. ? Resected and retrieved. Recommendation: ?- Await pathology results. ? - Return to primary care physician as previously scheduled. ? - Resume previous diet. ? - Resume Plavix (clopidogrel) at prior dose in 5 days. ? - Patient has a contact number available for emergencies. ? The signs and symptoms of potential delayed complications ? were discussed with the patient. Return to normal ? activities tomorrow. Written discharge instructions were ? provided to the patient. ? - No repeat colonoscopy. ? Procedure Code(s): ? --- Professional --- ? 18994, Colonoscopy, flexible; with removal of tumor(s), polyp(s), or ? other lesion(s) by snare technique ? 73252, 59, Colonoscopy, flexible; with biopsy, single or multiple ? --- Technical --- ? 14446, Colonoscopy, flexible; with removal of tumor(s), polyp(s), or ? other lesion(s) by snare technique ? 94202, 59, Colonoscopy, flexible; with biopsy, single or multiple Diagnosis Code(s): ? --- Professional --- ? D12.5, Benign neoplasm of sigmoid colon ? D12.2, Benign neoplasm of ascending colon ? D12.4, Benign neoplasm of descending colon ? D12.3, Benign neoplasm of transverse colon (hepatic flexure or splenic ? flexure) ? R19.5, Other fecal abnormalities ? --- Technical --- ? D12.5, Benign neoplasm of sigmoid colon ? D12.2, Benign neoplasm of ascending colon ? D12.4, Benign neoplasm of descending colon ? D12.3, Benign neoplasm of transverse colon (hepatic flexure or splenic ? flexure) ? R19.5, Other fecal abnormalities CPT copyright 2017 [employer]. All rights reserved. The codes documented in this report are preliminary and upon judicial registrar review may be revised to meet current compliance requirements. Dr. Angela Truong MD Angela Truong MD 02/17/2019 11:10:53 AM This report has been signed electronically. Number of Addenda: 0 Note Initiated On: 02/17/2019 9:45 AM PSYCHIATRIC ENDOSCOPY 02/17/2019 9:45 AM CDT Angela Truong MD GI PROCEDURE ORDERA BLES [place] [address] * (ABNORMAL) COLOGUARD TEST (12/29/2018 12:30 PM CDT) Cologuard Positive (A) Not Applicable [facility] Comment: It is recommended that a positive Cologuard screen be clinically correlated and followed-up with a structural examination of the colon such as diagnostic colonoscopy. Colonoscopies performed for a positive Cologuard may find as the most clinically significant lesion: colorectal cancer [4.0%], advanced adenoma (including sessile serrated polyps greater than or equal to 1cm diameter) [20%] or non- advanced adenoma [31%]; or no colorectal neoplasia [45%]. These estimates are derived from a prospective cross-sectional screening study of 10,000 individuals at average risk for colorectal cancer who were screened with both Cologuard and colonoscopy. (Table 3, Raine Babin et al, N Engl J Med 2014;370(14):2042-8699.) Test Type: Composite algorithmic analysis of stool DNA-biomarkers with hemoglobin immunoassay. ??Quantitative values of individual biomarkers are not reportable and are not associated with individual biomarker result reference ranges. Precautions and Limitations: Cologuard is intended for colorectal cancer screening of adults of either sex, 50 years or older, who are at typical average-risk for colorectal cancer. A negative Cologuard test result does not guarantee the absence of colorectal cancer or advanced adenoma (pre-cancer). Patients with a negative Cologuard test result should be advised to continue participating in a colorectal cancer screening program. Cologuard may produce a positive result, even though a colonoscopy may not find colorectal cancer or precancerous polyps. The performance of Cologuard has been established in a cross sectional study (i.e., single point in time). Performance has not been evaluated in adults who have been previously tested with Cologuard or in patients less than 50 years of age. Cologuard has been approved for use by the U.S. FDA. Cologuard performance data in a 10,000 patient pivotal study using colonoscopy as the reference method can be accessed at the following location: www.TeamSnap/results. Additional description of the Cologuard test process, warnings and precautions can be found at www.cologuardtest.com. Rx Only. Stool specimen (specimen) STOOL SPECIMEN / Unknown 12/29/2018 12:30 PM CDT 12/30/2018 2:12 PM CDT Theresa Camargo MD LAB - CHEMISTRY ROWAN QUIROZ [facility] Organization Address City/State/[facility] Co de Phone Number [facility] [address] [place] [address] [phone] [address] [place] [address]. [place] [address] * XR LUMBAR SPINE 2 OR 3VW (12/17/2018 12:51 PM CDT) Anatomical Region Laterality Modality Spine Radiographic Mireya ging 12/17/2018 1:16 PM CDT Narrative 12/17/2018 1:17 PM CDT Lumbosacral Spine 3 Views INDICATION: Low back pain, spinal stenosis FINDINGS: ??There is a levoconvex lumbar scoliosis centered at L3. There is disc space narrowing and osteophyte formation most significant along the inner portion of the curvature. There is also facet arthropathy within the lower lumbar spine. No acute fracture. Vascular calcifications are present. There are surgical clips within the gallbladder fossa. Reading Radiologist: Brooke Reynoso MD on 12/17/2018 at 1:17 PM Procedure Note Brooke Reynoso MD - 12/17/2018 Lumbosacral Spine 3 Views INDICATION: Low back pain, spinal stenosis FINDINGS: There is a levoconvex lumbar scoliosis centered at L3. There is disc space narrowing and osteophyte formation most significant along the inner portion of the curvature. There is also facet arthropathy within the lower lumbar spine. No acute fracture. Vascular calcifications are present. There are surgical clips within the gallbladder fossa. Reading Radiologist: Brooke Reynoso MD on 12/17/2018 at 1:17 PM Nelson Ross MD DIAGNOSTIC IMAGING ORDERABLES * XR CERVICAL SPINE 2 OR 3VW (12/17/2018 12:51 PM CDT) Anatomical Region Laterality Modality Spine Radiographic Mireya ging 12/17/2018 1:11 PM CDT Impressions 12/17/2018 1:12 PM CDT Degenerative changes of the cervical spine. Reading Radiologist: Dianna Simmons MD on 12/17/2018 at 1:12 PM Narrative 12/17/2018 1:12 PM CDT Cervical spine 2 views PA and lateral INDICATION: Spondylosis PA and lateral views of the cervical spine are provided and show straightening of cervical lordosis with robust anterior osteophytes. There is loss of disc space height most notably at C5-C6. There is slight anterolisthesis of C3 in relation to C4. Multilevel facet degenerative changes are noted. Procedure Note Dianna Simmons MD - 12/17/2018 Cervical spine 2 views PA and lateral INDICATION: Spondylosis PA and lateral views of the cervical spine are provided and show straightening of cervical lordosis with robust anterior osteophytes. There is loss of disc space height most notably at C5-C6. There is slight anterolisthesis of C3 in relation to C4. Multilevel facet degenerative changes are noted. IMPRESSION Degenerative changes of the cervical spine. Reading Radiologist: Dianna Simmons MD on 12/17/2018 at 1:12 PM Nelson Ross MD DIAGNOSTIC IMAGING ORDERABLES * CT CHEST W CONTRAST (08/07/2018 8:29 AM CDT) Anatomical Region Laterality Modality Chest Computed Tomogra phy 08/07/2018 10:4 2 AM CDT Impressions 08/07/2018 10:58 AM CDT Minimal bronchiectasis. Minimal groundglass opacity right middle lobe. Edited by Nelly Álvarez on 08/07/2018 10:46 AM Reading Radiologist: Dianna Simmons MD on 08/07/2018 at 10:58 AM Narrative 08/07/2018 10:[address] CHEST WITHOUT IV CONTRAST INDICATION: Shortness of breath, history of breast cancer and atrial fibrillation. TECHNIQUE: Helical CT images of the chest obtained without IV contrast. FINDINGS: There is no focal lobar consolidation. Thyroid is heterogeneous. There are calcified mediastinal lymph nodes present. There is no pleural or pericardial effusion. There is no pulmonary consolidation or mass. Limited images of the upper abdomen appear unremarkable. The airways are patent. There is mild central cylindrical bronchiectasis. Minimal amount of groundglass infiltrate is seen in the right middle lobe. Limited images of the upper abdomen appear unremarkable. Procedure Note Dianna Simmons MD - 08/07/2018 CT CHEST WITHOUT IV CONTRAST INDICATION: Shortness of breath, history of breast cancer and atrial fibrillation. TECHNIQUE: Helical CT images of the chest obtained without IV contrast. FINDINGS: There is no focal lobar consolidation. Thyroid is heterogeneous. There are calcified mediastinal lymph nodes present. There is no pleural or pericardial effusion. There is no pulmonary consolidation or mass. Limited images of the upper abdomen appear unremarkable. The airways are patent. There is mild central cylindrical bronchiectasis. Minimal amount of groundglass infiltrate is seen in the right middle lobe. Limited images of the upper abdomen appear unremarkable. IMPRESSION Minimal bronchiectasis. Minimal groundglass opacity right middle lobe. Edited by Nelly Álvarez on 08/07/2018 10:46 AM Reading Radiologist: Dianna Simmons MD on 08/07/2018 at 10:58 AM Brooke Haynes PRINT SUPPORT SPECIALIST-RESIDENT CARE AID CT ORDERABLES * CREATININE BLOOD - POINT OF CARE (IP) (08/07/2018 8:18 AM CDT) Only the most recent of2 resultswithin the time period is included. Creatinine POCT 0.98 0.7 - 1.2 mg/dL [facility] POCT TESTING QC Verified Yes Yes [facility] POC T TESTING Blood BLOOD SPECIMEN / Unknown 08/07/2018 8:18 AM CDT Brooke Haynes APRN-RESIDENT CARE AID LAB - POINT OF CARE ORDERABLES PSYCHIATRIC POCT TESTING [id number] [id number] [phone] * POTASSIUM BLOOD (02/13/2018 2:27 PM CDT) Only the most recent of2 resultswithin the time period is included. Potassium 4.0 3.5 - 5.3 mmol/L [facility] Comment: Test Performed at: [facility] ??[phone] RUSSELL HAMLIN DO,MPH Blood BLOOD SPECIMEN / Unknown 02/13/2018 2:27 PM CDT 02/13/2018 2:27 PM CDT Jarrell Garrison MD LAB - CHEMISTRY ROWAN QUIROZ Performing Organization Address City/[facility] [address]/ZIP Co de Phone Number [facility] [phone] [place] [address] * EGD (12/23/2017 12:43 PM CDT) Report Endoscopy POC __ _ Patient Name: Loc Leon ? Procedure Date: 12/23/2017 12:43 PM ? Date of : 1940 ?Admit Type: Outpatient Age: 77 ? Gender: Female Attending MD: Angela Truong MD __ _ Procedure: ? Upper GI endoscopy Indications: ? Iron deficiency anemia, Possible Melena Providers: ? Angela Truong MD (Doctor) Referring MD: ?Jarrell Garrison MD (Referring MD) Medicines: ? Monitored Anesthesia Care Complications: ? No immediate complications. Estimated blood loss: None. __ _ Procedure: ? Pre-Anesthesia Assessment: ? - Prior to the procedure, a History and Physical was ? performed, and patient medications and allergies were ? reviewed. The patient is competent. The risks and benefits ? of the procedure and the sedation options and risks were ? discussed with the patient. All questions were answered ? and informed consent was obtained. Patient identification ? and proposed procedure were verified by the physician, the ? nurse and the pipeline engineer in the procedure room. Mental ? Status Examination: alert and oriented. Airway ? Examination: normal oropharyngeal airway and neck ? mobility. Respiratory Examination: clear to auscultation. ? CV Examination: normal. Prophylactic Antibiotics: The ? patient does not require prophylactic antibiotics. Prior ? Anticoagulants: The patient has taken aspirin and plavix, ? last dose was 5 days prior to procedure. ASA Grade ? Assessment: III - A patient with severe systemic disease. ? After reviewing the risks and benefits, the patient was ? deemed in satisfactory condition to undergo the procedure. ? The anesthesia plan was to use monitored anesthesia care ? (MAC). Immediately prior to administration of medications, ? the patient was re-assessed for adequacy to receive ? sedatives. The heart rate, respiratory rate, oxygen ? saturations, blood pressure, adequacy of pulmonary ? ventilation, and response to care were monitored ? throughout the procedure. The physical status of the ? patient was re-assessed after the procedure. ? After obtaining informed consent, the endoscope was passed ? under direct vision. Throughout the procedure, the ? patient's blood pressure, pulse, and oxygen saturations ? were monitored continuously. The Endoscope was introduced ? through the mouth, and advanced to the second part of ? duodenum. The upper GI endoscopy was accomplished without ? difficulty. The patient tolerated the procedure well. ? Findings: ? The gastroesophageal junction and examined esophagus were normal. ? Multiple 3 to 10 mm pedunculated and sessile fundic gland polyps were ? found in the cardia, in the gastric fundus and in the gastric body. ? The gastric antrum was normal. ? The duodenal bulb and 2nd part of the duodenum were normal. Biopsies ? were taken with a cold forceps for histology. __ _ ? Impression: ?- Normal gastroesophageal junction and esophagus. ? - Multiple benign fundic gastric polyps. ? - Normal antrum. ? - Normal duodenal bulb and 2nd part of the duodenum. ? Biopsied. Recommendation: ?- Await pathology results. ? - No endoscopic evidence to support GI blood loss. ? Continue to monitor Hemoglobin levels every 4 months. ? Start Iron supplementation if Hgb less than 10 or ? symptomatic anemia. ? Procedure Code(s): ? --- Professional --- ? 44992, Esophagogastroduode noscopy, flexible, transoral; with biopsy, ? single or multiple ? --- Technical --- ? 09688, Esophagogastroduode noscopy, flexible, transoral; with biopsy, ? single or multiple Diagnosis Code(s): ? --- Professional --- ? 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 D50.9, Iron deficiency anemia, unspecified ? K92.1, Melena (includes Hematochezia) ? --- Technical --- ? 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 D50.9, Iron deficiency anemia, unspecified ? K92.1, Melena (includes Hematochezia) CPT copyright 2015 [employer]. All rights reserved. The codes documented in this report are preliminary and upon judicial registrar review may be revised to meet current compliance requirements. Dr. Angela Truong MD ____ Angela Truong MD 12/23/2017 1:13:17 PM This report has been signed electronically. Number of Addenda: 0 Note Initiated On: 12/23/2017 12:43 PM PSYCHIATRIC ENDOSCOPY 12/23/2017 12:4 3 PM CDT Angela Truong MD GI PROCEDURE ORDERA [facility] [place] [address] * CT ABDOMEN PELVIS W CONTRAST (12/17/2017 10:22 AM CDT) Anatomical Region Laterality Modality Abdomen, Pelvis Computed Tomogra phy 12/17/2017 12:5 7 PM CDT Impressions 12/17/2017 12:59 PM CDT There is stool throughout the length of the colon. No acute abnormality is identified. Reading Radiologist: Dianna Simmons MD on 12/17/2017 at 12:59 PM Narrative 12/17/2017 12:[address] abdomen pelvis with IV contrast INDICATION: Blood in stool history breast cancer TECHNIQUE: Helical CT images of the abdomen and pelvis obtained following 80 mL Omnipaque 350. FINDINGS: Scans of lung bases are unremarkable. The liver, spleen and pancreas are unremarkable. Gallbladder is surgically absent. The adrenals and kidneys are unremarkable. Abdominal aorta is moderately calcified. Loops of bowel are of normal caliber. There is stool throughout the length of the colon. Small bowel is nondilated. There are tiny periaortic lymph nodes, none of which are enlarged. No intra-abdominal mass is noted. There is no definite bowel wall thickening. Bladder distends normally. Osseous structures are unremarkable. Procedure Note Dianna Simmons MD - 12/17/2017 CT abdomen pelvis with IV contrast INDICATION: Blood in stool history breast cancer TECHNIQUE: Helical CT images of the abdomen and pelvis obtained following 80 mL Omnipaque 350. FINDINGS: Scans of lung bases are unremarkable. The liver, spleen and pancreas are unremarkable. Gallbladder is surgically absent. The adrenals and kidneys are unremarkable. Abdominal aorta is moderately calcified. Loops of bowel are of normal caliber. There is stool throughout the length of the colon. Small bowel is nondilated. There are tiny periaortic lymph nodes, none of which are enlarged. No intra-abdominal mass is noted. There is no definite bowel wall thickening. Bladder distends normally. Osseous structures are unremarkable. IMPRESSION There is stool throughout the length of the colon. No acute abnormality is identified. Reading Radiologist: Dianna Simmons MD on 12/17/2017 at 12:59 PM Shira Love DO CT ORDERABLES * DEXA BONE DENSITY AXIAL SKELETON (10/29/2017 [...] 11:17 AM Enrique Gonzalez MD DEXA ORDERABLES * NM SENTINEL NODE INJECTION (09/08/2017 8:58 AM CDT) Anatomical Region Laterality Modality Nuclear Medicine 09/08/2017 3:46 PM CDT Narrative 09/09/2017 9:28 AM CDT LYMPHOSCINTIGRAPHY INDICATION: Left breast cancer. FINDINGS: Written, informed consent was obtained. 1 mCi of technetium-99m Lymphoseek was injected intradermally in equal parts at the 12:00, 3:00, 6:00, and 9:00 positions about the left nipple. No imaging was performed. There were no complications. Edited by Eneida Smalls on 09/08/2017 4:20 PM Procedure Note Shakira García MD - 09/09/2017 LYMPHOSCINTIGRAPHY INDICATION: Left breast cancer. FINDINGS: Written, informed consent was obtained. 1 mCi of technetium-99m Lymphoseek was injected intradermally in equal parts at the 12:00, 3:00, 6:00, and 9:00 positions about the left nipple. No imaging was performed. There were no complications. Edited by Enedia Smalls on 09/08/2017 4:20 PM Shira PHAM ORDERABLES * (ABNORMAL) CBC W/O DIFFERENTIAL (08/26/2017 4:13 AM CDT) Only the most recent of2 resultswithin the time period is included. WBC 12.6(H) 4.4 - 10.7 x10E9/L 08/26/2017 5:00 AM CDT PSYCHIATRIC LABORATORY RBC 4.45 3.80 - 5.20 x10E12/L 08/26/2017 5:00 AM CDT PSYCHIATRIC LABORATORY Hemoglobin 10.0(L) 12.0 - 15.6 gm/dL 08/26/2017 5:00 AM CDT PSYCHIATRIC LABORATORY Hematocrit 33.4(L) 35.9 - 45.5 % 08/26/2017 5:00 AM CDT PSYCHIATRIC LABORATORY MCV 75.1(L) 80.7 - 98.3 fl 08/26/2017 5:00 AM CDT PSYCHIATRIC LABORATORY MCH 22.5(L) 26.7 - 34.0 pg 08/26/2017 5:00 AM CDT PSYCHIATRIC LABORATORY MCHC 29.9(L) 30.8 - 35.9 gm/dL 08/26/2017 5:00 AM CDT PSYCHIATRIC LABORATORY Platelet Count 386 153 - 416 x10E9/L 08/26/2017 5:00 AM CDT PSYCHIATRIC LABORATORY RDW-CV 19.7(H) 12.1 - 14.9 % 08/26/2017 5:00 AM CDT PSYCHIATRIC LABORATORY MPV 10.8 9.4 - 12.9 fl 08/26/2017 5:00 AM CDT PSYCHIATRIC LABORATORY Blood BLOOD SPECIMEN / Unknown Venipuncture / Unknown 08/26/2017 4:13 AM CDT 08/26/2017 4:49 AM CDT Stu Gracia PRINT SUPPORT SPECIALIST-RESIDENT CARE AID LAB - HEMATOLO GY ORDERABLES PSYCHIATRIC LABORATORY [address] [place] [address] * MAMMO BREAST LEFT SPECIMEN [id number] (08/25/2017 3:52 PM CDT) Shira Love DO MAMMO ORDERABLES [facility] [address] [place] [address] * MAMMO LEFT DIAGNOSTIC (08/25/2017 12:06 PM CDT) Only the most recent of2 resultswithin the time period is included. Anatomical Region Laterality Modality Left Mammography 08/25/2017 4:37 PM CDT Narrative 08/25/2017 4:38 PM CDT NEEDLE LOCALIZATION OF THE LEFT BREAST UNDER ULTRASOUND GUIDANCE Indication: Solid hypoechoic mass at the 12/1:00 position of the left breast 5 cm from the nipple. Procedure/findings: The procedure was explained in detail to the patient. She wished to proceed. The mass in question in the left breast was identified with ultrasound. The overlying skin was prepped with Betadine. Under localized lidocaine anesthesia and direct ultrasound guidance a 5 cm localization needle was placed through the mass. The carl wire was then placed through the needle needle and the the needle removed. There were no apparent complications. Routine CC and lateral mammographic images were obtained which demonstrated the wire in the appropriate position through the mass. Procedure Note Shakira García MD - 08/25/2017 NEEDLE LOCALIZATION OF THE LEFT BREAST UNDER ULTRASOUND GUIDANCE Indication: Solid hypoechoic mass at the 12/1:00 position of the left breast 5 cm from the nipple. Procedure/findings: The procedure was explained in detail to the patient. She wished to proceed. The mass in question in the left breast was identified with ultrasound. The overlying skin was prepped with Betadine. Under localized lidocaine anesthesia and direct ultrasound guidance a 5 cm localization needle was placed through the mass. The carl wire was then placed through the needle needle and the the needle removed. There were no apparent complications. Routine CC and lateral mammographic images were obtained which demonstrated the wire in the appropriate position through the mass. Shira Love DO MAMMO ORDERABLES * US BREAST LEFT NEEDLE LOC (08/25/2017 9:55 AM CDT) Anatomical Region Laterality Modality Breast Ultrasound 08/25/2017 4:37 PM CDT Narrative 08/25/2017 4:38 PM CDT NEEDLE LOCALIZATION OF THE LEFT BREAST UNDER ULTRASOUND GUIDANCE Indication: Solid hypoechoic mass at the 12/1:00 position of the left breast 5 cm from the nipple. Procedure/findings: The procedure was explained in detail to the patient. She wished to proceed. The mass in question in the left breast was identified with ultrasound. The overlying skin was prepped with Betadine. Under localized lidocaine anesthesia and direct ultrasound guidance a 5 cm localization needle was placed through the mass. The carl wire was then placed through the needle needle and the the needle removed. There were no apparent complications. Routine CC and lateral mammographic images were obtained which demonstrated the wire in the appropriate position through the mass. Procedure Note Shakira García MD - 08/25/2017 NEEDLE LOCALIZATION OF THE LEFT BREAST UNDER ULTRASOUND GUIDANCE Indication: Solid hypoechoic mass at the 12/1:00 position of the left breast 5 cm from the nipple. Procedure/findings: The procedure was explained in detail to the patient. She wished to proceed. The mass in question in the left breast was identified with ultrasound. The overlying skin was prepped with Betadine. Under localized lidocaine anesthesia and direct ultrasound guidance a 5 cm localization needle was placed through the mass. The carl wire was then placed through the needle needle and the the needle removed. There were no apparent complications. Routine CC and lateral mammographic images were obtained which demonstrated the wire in the appropriate position through the mass. Shira Love DO US ORDERABLES * (ABNORMAL) US BREAST LEFT [facility] (07/30/2017 10:33 AM CDT) Anatomical Region Laterality Modality Breast Left Ultrasound 07/30/2017 10:3 6 AM CDT Narrative 07/30/2017 11:12 AM CDT ULTRASOUND LEFT BREAST LIMITED INDICATION: Abnormal mammogram. Directed grayscale ultrasound performed and reveals a hypoechoic density at the site of the spiculated distortion mammographically at 1:00 to 2:00, 5 cm from the nipple, measuring 8 x 6 x 8 mm. Survey images of the axilla do not reveal abnormal adenopathy. Findings are suspicious and tissue diagnosis would be warranted. ASSESSMENT: BI-RADS Category 4, suspicious. RECOMMENDATION: Surgical consultation. Edited by Angela Rodgers on 07/30/2017 10:46 AM Jarrell Garrison MD US ORDERABLES * MAMMO SCREENING DIGITAL IMAGE BILAT (07/02/2017 10:56 AM HAND WORKER) Anatomical Region Laterality Modality Breast Bilateral Mammography 07/03/2017 3:37 PM HAND WORKER Impressions 07/03/2017 3:43 PM HAND WORKER Questioned spiculated mass in the upper outer left breast (CC 16, MLO 20). No mammographic evidence of malignancy in the right breast. ASSESSMENT: BIRADS Category 0: Incomplete - Needs additional imaging evaluation. RECOMMENDATION: Left breast diagnostic mammography and targeted ultrasound. Thank you for allowing us to participate in the care of your patient. [facility] utilizes [employer] as a reminder system to notify patients of their next recommended mammogram. Narrative 07/03/2017 3:43 PM HAND WORKER EXAMINATION: Digital screening mammogram on 07/02/2017. Low-dose full-field digital breast tomosynthesis examination was performed with synthetic 2D images and 3D acquisitions. Computer assisted detection was utilized. PRIOR: Prior mammograms just received from [facility] dated 04/26/2016, 11/18/2013, 07/24/2012, and left breast diagnostic mammograms 08/19/2012. BREAST PARENCHYMAL DENSITY: There are scattered areas of fibroglandular density. FINDINGS: Questioned spiculated mass in the upper outer left breast (CC 16, MLO 20). No suspicious masses, areas of architectural distortion or microcalcifications are evident on synthetic 2D mammogram or tomosynthesis images of the right breast. Jarrell Garrison MD MAMMO ORDERABLES * TSH (EXTERNAL RESULT ENTRY) (05/02/2017) TSH (EXTERNAL RESULT) 5.24 uIU/mL Blood BLOOD SPECIMEN / Unknown 05/02/2017 Narrative Shayy Abraham - 05/02/2017 The accuracy and reliability of the test results are authenticated by the outside CLIA certified lab, and not by the [facility] Incinerator Operator. ??The full result should be confirmed by review of the scanned report from the outside CLIA certified lab that performed the test before clinical decisions are rendered based on these results. ??Exercise caution when tracking results measured by different laboratories that have not been subject to cross validation studies. Historical Provider LAB - CHEMISTRY O RDERABLES * HEMOGLOBIN A1C (EXTERNAL RESULT ENTRY) (05/02/2017) Hemoglobin A1c (EXTERNAL RESULT) 7.1 % Blood BLOOD SPECIMEN / Unknown 05/02/2017 Narrative Shayy Abraham - 05/02/2017 The accuracy and reliability of the test results are authenticated by the outside CLIA certified lab, and not by the [facility] Incinerator Operator. ??The full result should be confirmed by review of the scanned report from the outside CLIA certified lab that performed the test before clinical decisions are rendered based on these results. ??Exercise caution when tracking results measured by different laboratories that have not been subject to cross validation studies. Historical Provider LAB - CHEMISTRY O RDERABLES * CULTURE URINE REFLEXED I (01/27/2017 1:55 PM CDT) Pathologist [facility] Reflexive Urine Culture NO CULTURE INDICATED [facility] Comment: Test Performed at: [facility] [address] [place], [place] ??[phone] RUSSELL HAMLIN DO,MPH 01/27/2017 1:55 PM CDT 01/27/2017 1:55 PM CDT Nelson Ross MD LAB - MICROBIOLOGY ORDERABLES [facility] [address] [place] [address] * (ABNORMAL) URINALYSIS ROUTINE W/REFLEX TO CULTURE (01/27/2017 1:55 PM CDT) Only the most recent of2 resultswithin the time period is included. Color UA YELLOW YELLOW [facility] Appearance CLEAR CLEAR [facility] Specific [place] UA 1.021 1.001 - 1.035 [facility] pH UA 6.5 5.0 - 8.0 [facility] Glucose UA 3+(A) NEGATIVE [facility] Bilirubin UA NEGATIVE NEGATIVE [facility] Ketone UA NEGATIVE NEGATIVE [facility] Blood UA NEGATIVE NEGATIVE [facility] Protein UA NEGATIVE NEGATIVE [facility] Nitrite NEGATIVE NEGATIVE [facility] Leukocyte Esterase NEGATIVE NEGATIVE [facility] WBC UA NONE SEEN < OR = 5 /HPF [facility] RBC UA NONE SEEN < OR = 2 /HPF [facility] Epithelial Cell UA 0-5 < OR = 5 /HPF [facility] Bacteria UA NONE SEEN NONE SEEN /HPF [facility] Calcium Oxalate Crystals FEW NONE OR FEW /HPF [facility] Hyaline Casts NONE SEEN NONE SEEN /LPF [facility] Comment: Test Performed at: [facility] [address] [place], [place] ??[phone] RUSSELL HAMLIN DO,MPH Urine URINE SPECIMEN OBTAINED BY CLEAN CATCH PROCEDURE / Unknown 01/27/2017 1:55 PM CDT 01/27/2017 1:55 PM CDT Nelson Ross MD LAB - URINALYSIS OR DERABLES [facility] [address] [place] [address] * MRI BRAIN WITH CONTRAST (12/30/2016 2:56 PM CDT) Anatomical Region Laterality Modality Head Magnetic Resonan ce 01/07/2017 10:1 0 AM CDT Impressions 01/07/2017 10:41 AM CDT No abnormal enhancement is seen following administration of gadolinium. Edited by Angela Rodgers on 01/07/2017 10:22 AM Narrative 01/07/2017 10:41 AM CDT MRI BRAIN WITH CONTRAST INDICATION: Weakness. Noncontrast brain performed previously. COMPARISON: December 29, 2016. TECHNIQUE: Dotarem was administered intravenously. The dose was not recorded by technologist. Axial and coronal T1-weighted sequences of the brain were then performed. Of note, examination was performed on December 30, 2016 but is submitted for interpretation on January 07, 2017. FINDINGS: Following administration of gadolinium, there is no abnormal enhancement. No intra-axial or extra-axial masses are seen. Procedure Note Kelly Cline MD - 01/07/2017 MRI BRAIN WITH CONTRAST INDICATION: Weakness. Noncontrast brain performed previously. COMPARISON: December 29, 2016. TECHNIQUE: Dotarem was administered intravenously. The dose was not recorded by technologist. Axial and coronal T1-weighted sequences of the brain were then performed. Of note, examination was performed on December 30, 2016 but is submitted for interpretation on January 07, 2017. FINDINGS: Following administration of gadolinium, there is no abnormal enhancement. No intra-axial or extra-axial masses are seen. IMPRESSION No abnormal enhancement is seen following administration of gadolinium. Edited by Angela Rodgers on 01/07/2017 10:22 AM Crow Campos MD MR ORDERABLES * C-REACTIVE PROTEIN SENSITIVE (12/30/2016 4:38 AM CDT) C-Reactive Protein High Sensitivity 0.16 <0.30 mg/dL 12/30/2016 9:[address] [facility] Blood BLOOD SPECIMEN / Unknown Venipuncture / Unknown 12/30/2016 4:38 AM CDT 12/30/2016 4:[address] [facility] - 12/30/2016 9:18 AM CDT C-REACTIVE PROTEIN SENSITIVE INTERPRETATION Patients with higher High Sensitivity C-Reactive Protein (hsCRP) concentrations are more likelyto develop stroke, myocardial infarction, and severeperipheral vascular disease. C-Reactive Protein (CRP) is a nonspecificmarker of inflammation and a variety of conditions other than atherosclerosis may cause Elevated concentrations. If the first result is greater than 0.30 mg/dL, recommend repeating test at least 2 weeks later in a metabolically stable state, free of infection or acute illness. The lower of the two results should be used to determine the patient's risk. C-REACTIVE PROTEIN SENSITIVE results are used to assign risk as follows: ? Less than 0.10 ??mg/dL ?Low risk ? 0.10-0.30 mg/dL ?Average risk ? 0.31-0.99 mg/dL ?High risk ? Greater than 0.99 mg/dL ?Very high risk ? (Clin Chem 2009; 55:378-84) Crow Campos MD LAB - CHEMISTRY ROWAN QUIROZ [facility] Organization Address City/State/ZIP Co de Phone Number [facility] [address] [place], [place] [id number] * METHYLMALONIC ACID BLOOD (12/30/2016 4:36 AM CDT) Methylmalonic Acid 133 0 - 378 nmol/L 01/02/2017 7:14 AM CDT [facility] ([facility]) Blood BLOOD SPECIMEN / Unknown Venipuncture / Unknown 12/30/2016 4:36 AM CDT 12/30/2016 4:51 AM CDT Narrative [facility] ([facility]) - 01/02/2017 7:14 AM CDT Performed at: ??01 - [facility] [address] ??[id number] Equine Intern: Russell Aranda MD, Phone: ??[phone] Crow Campos MD LAB - CHEMISTRY ROWAN QUIROZ Performing Organization Address [facility] [address]/[facility] Co de Phone Number [facility] ([facility]) [address] [place] [address] * SED RATE WESTERGREN (12/30/2016 4:35 AM CDT) Pathologist [facility] Erythrocyte Sedimentation Rate Westergren 4 0 - 30 mm/hr 12/30/2016 5:22 AM CDT [facility] Blood BLOOD SPECIMEN / Unknown Venipuncture / Unknown 12/30/2016 4:35 AM CDT 12/30/2016 4:51 AM CDT Crow Campos MD LAB - HEMATOLOGY ORD SAMANTA Performing Organization Address City/[facility] [address]/[facility] Co de Phone Number [facility]RIC LABORATORY [address] [place] [address] * HOMOCYSTEINE BLOOD QUANTITATIVE (12/30/2016 4:34 AM CDT) Pathologist [facility] Homocysteine 7.2 5.0 - 13.9 umol/L 12/30/2016 10:[address] [facility] Blood BLOOD SPECIMEN / Unknown Venipuncture / Unknown 12/30/2016 4:34 AM CDT 12/30/2016 4:51 AM CDT Crow Campos MD LAB - CHEMISTRY ROWAN QUIROZ [facility] [address] [place] [address] * (ABNORMAL) FOLATE (12/30/2016 4:30 AM CDT) Pathologist [facility] Folate 30.5(H) 3.1 - 17.5 ng/mL 12/30/2016 5:55 AM CDT [facility] LAB[facility]ORY Blood BLOOD SPECIMEN / Unknown Venipuncture / Unknown 12/30/2016 4:30 AM CDT 12/30/2016 4:51 AM CDT Crow Campos MD LAB - CHEMISTRY ROWAN QUIROZ Performing Organization Address [facility] [address]/[facility] Co de Phone Number PSYCHIATRIC LABORATORY [phone] [place] [phone] * CK BLOOD (12/30/2016 4:30 AM CDT) [facility] CK 89 35 - 232 U/L 12/30/2016 5:21 AM CDT PS[facility]ATRIC LABORATORY Blood BLOOD SPECIMEN / Unknown Venipuncture / Unknown 12/30/2016 4:30 AM CDT 12/30/2016 4:51 AM CDT Crow Campos MD LAB - CHEMISTRY ROWAN QUIROZ Performing Organization Address [facility] [address]/[facility] de Phone Number PSYCHIATRIC LABORATORY [phone] [place] [phone] * (ABNORMAL) VITAMIN B12 (12/30/2016 4:30 AM CDT) [facility] Vitamin B12 1,362(H) 211 - 911 pg/mL 12/30/2016 5:54 AM CDT [facility]IC LABORATORY Blood BLOOD SPECIMEN / Unknown Venipuncture / Unknown 12/30/2016 4:30 AM CDT 12/30/2016 4:51 AM CDT Crow Campos MD LAB - CHEMISTRY ROWAN QUIROZ Performing Organization Address [facility] [address]/[facility] Co de Phone Number PS[facility]CHIATRIC LABORATORY [phone] [place] [phone] * MRI LUMBAR SPINE WO CONTRAST (12/29/2016 4:11 PM CDT) Anatomical Region Laterality Modality Spine Magnetic Resonan ce 12/30/2016 8:21 AM CDT Impressions 12/30/2016 9:19 AM CDT Disc bulge and facet arthropathy in the setting of a scoliosis results in a mild to moderate central canal stenosis at L2-3 and in a mild central canal stenosis at L1-2, L3-4, and L4-5. Lateral recess and neural foraminal stenoses are present as described, most pronounced at the concave aspects of the scoliosis. Edited by Brandi Yi on 12/30/2016 9:18 AM Narrative 12/30/2016 9:19 AM CDT MRI LUMBAR SPINE INDICATION: Left lower extremity weakness. Left leg jerking spontaneously. COMPARISON: Radiographic examination of the lumbar spine is not available at this institution. TECHNIQUE: Sagittal and axial T1 and T2. Sagittal STIR, 3-D lumbar myelogram. FINDINGS: There are no comparison radiographs of the lumbar spine available at this time. For the purposes of this examination, it should be assumed that this patient has five lumbar vertebral bodies. Careful correlation between this and the subsequent radiographic examinations of the lumbar spine is recommended to ensure consistent numbering of disc spaces. This is particularly important if surgery is considered. Alignment: There is a levoscoliosis of the lumbar spine. Minimal anterolisthesis of L4 on L5 and retrolisthesis of L2 on L3 each measure approximately 2 mm. Marrow: No compression or other vertebral fracture is present. There are degenerative marrow changes adjacent to the L1-2, L2-3, and L3-4 discs. Spinal cord: The spinal cord is normal in morphology and in signal intensity. It terminates at approximately L1. Disc spaces: There is loss of disc hydration throughout the lumbar spine with mild loss of disc height at L1-L2 through L5-S1. Posterior disc bulges are present at each of these levels. The following levels were directly imaged in the axial plane: T11-12: No significant disc herniation or stenosis. T12-L1: No significant disc herniation or stenosis. L1-L2: Disc bulge and facet arthropathy results in a mild central canal and right lateral recess stenosis. L2-L3: Disc bulge, facet arthropathy and malalignment result in a mild to moderate central canal and right lateral recess stenosis and a mild left lateral recess stenosis. The right neural foramen is mildly narrowed. L3-L4: Disc bulge and facet arthropathy result in a mild central canal stenosis and mild bilateral lateral recess stenosis, right greater than left. The right neural foramen is mildly narrowed. L4-L5: Disc bulge and facet arthropathy results in a mild central canal stenosis, mild right and mild to moderate left lateral recess stenosis. L5-S1: Facet arthropathy results in a mild left lateral recess stenosis. Procedure Note Kelly Cline MD - 12/30/2016 MRI LUMBAR SPINE INDICATION: Left lower extremity weakness. Left leg jerking spontaneously. COMPARISON: Radiographic examination of the lumbar spine is not available at this institution. TECHNIQUE: Sagittal and axial T1 and T2. Sagittal STIR, 3-D lumbar myelogram. FINDINGS: There are no comparison radiographs of the lumbar spine available at this time. For the purposes of this examination, it should be assumed that this patient has five lumbar vertebral bodies. Careful correlation between this and the subsequent radiographic examinations of the lumbar spine is recommended to ensure consistent numbering of disc spaces. This is particularly important if surgery is considered. Alignment: There is a levoscoliosis of the lumbar spine. Minimal anterolisthesis of L4 on L5 and retrolisthesis of L2 on L3 each measure approximately 2 mm. Marrow: No compression or other vertebral fracture is present. There are degenerative marrow changes adjacent to the L1-2, L2-3, and L3-4 discs. Spinal cord: The spinal cord is normal in morphology and in signal intensity. It terminates at approximately L1. Disc spaces: There is loss of disc hydration throughout the lumbar spine with mild loss of disc height at L1-L2 through L5-S1. Posterior disc bulges are present at each of these levels. The following levels were directly imaged in the axial plane: T11-12: No significant disc herniation or stenosis. T12-L1: No significant disc herniation or stenosis. L1-L2: Disc bulge and facet arthropathy results in a mild central canal and right lateral recess stenosis. L2-L3: Disc bulge, facet arthropathy and malalignment result in a mild to moderate central canal and right lateral recess stenosis and a mild left lateral recess stenosis. The right neural foramen is mildly narrowed. L3-L4: Disc bulge and facet arthropathy result in a mild central canal stenosis and mild bilateral lateral recess stenosis, right greater than left. The right neural foramen is mildly narrowed. L4-L5: Disc bulge and facet arthropathy results in a mild central canal stenosis, mild right and mild to moderate left lateral recess stenosis. L5-S1: Facet arthropathy results in a mild left lateral recess stenosis. IMPRESSION Disc bulge and facet arthropathy in the setting of a scoliosis results in a mild to moderate central canal stenosis at L2-3 and in a mild central canal stenosis at L1-2, L3-4, and L4-5. Lateral recess and neural foraminal stenoses are present as described, most pronounced at the concave aspects of the scoliosis. Edited by Brandi Yi on 12/30/2016 9:18 AM Crow Campos MD MR ORDERABLES * MRI BRAIN NON CONTRAST (12/29/2016 9:36 AM CDT) Only the most recent of2 resultswithin the time period is included. Anatomical Region Laterality Modality Head Magnetic Resonan ce 12/29/2016 12:0 7 PM CDT Impressions 12/29/2016 12:17 PM CDT No acute process. Advanced chronic small vessel change. Edited by Eneida Smalls on 12/29/2016 12:10 PM Narrative 12/29/2016 12:17 PM CDT MRI BRAIN WITHOUT CONTRAST CLINICAL INDICATION: Left lower extremity weakness. TECHNIQUE: Multisequence, multiplanar MRI sequences of the brain without contrast. FINDINGS: The sella is unremarkable. No Chiari malformation. Prior MRI brain from January 13, 2012. CT brain and CTA head and neck from December 28, 2016. Advanced chronic small vessel changes are seen. No diffusion restriction is seen. No mass, hemorrhage, or midline shift is seen. The ventricular size is normal. There are no extra-axial fluid collections. Flow void is seen in the major intracranial vessels. The paranasal sinuses and mastoid air cells are clear. Procedure Note Julian North MD - 12/29/2016 MRI BRAIN WITHOUT CONTRAST CLINICAL INDICATION: Left lower extremity weakness. TECHNIQUE: Multisequence, multiplanar MRI sequences of the brain without contrast. FINDINGS: The sella is unremarkable. No Chiari malformation. Prior MRI brain from January 13, 2012. CT brain and CTA head and neck from December 28, 2016. Advanced chronic small vessel changes are seen. No diffusion restriction is seen. No mass, hemorrhage, or midline shift is seen. The ventricular size is normal. There are no extra-axial fluid collections. Flow void is seen in the major intracranial vessels. The paranasal sinuses and mastoid air cells are clear. IMPRESSION No acute process. Advanced chronic small vessel change. Edited by Eneida Smalls on 12/29/2016 12:10 PM Julio Epstein DO MR ORDERABLES * CT ANGIO HEAD AND NECK (12/28/2016 6:33 PM CDT) Anatomical Region Laterality Modality Head Computed Tomogra phy 12/28/2016 6:55 PM CDT Narrative 12/28/2016 6:[address] angiography neck CT angiography head CT 3D Reconstruction Clinical Indication: Weakness ??TIA-- presents to the ER c/o left leg weakness. Patient states that she feels she has had another TIA because her left leg is weaker than normal, and she cannot lift it when she is laying on the bed. She started experiencing this weakness at about 10 AM this morning and it has been constant since. Technique: Axial CT images from the transverse aortic arch through the cranial vertex were obtained following the administration of 80 mL Visipaque 320 intravenous contrast. Multiplanar reformatted, maximum intensity projection, and 3D volume rendered reconstructions of the arterial vasculature of the neck and brain were performed on an independent workstation. ??An attempt was made to evaluate the vessels using the NASCET criteria. ??The CTA protocol is not the standard for the evaluation of aneurysms. ??This report was transcribed with a computerized speech recognition system. ??In an effort to expedite patient care, it has not been adjusted for typographical, grammatical or syntax problems by a trained medical office administrator. For questions about the report, please contact the Radiology Department. Findings: Neck: There is patency of the common carotid, internal carotid, and vertebral arteries. No major vessel occlusion can be identified. . The distal ICA's inferior to the skull base are normal in size. ??Small calcified plaque can be seen at carotid bifurcations bilaterally. ??The vertebral arteries are codominant. Head: The carotid siphons and the basilar arteries appear patent. ??No large branch occlusion can be seen. ?Small calcified plaque can be seen in the distal vertebral arteries and the distal ICAs. ??The posterior cerebral arteries show a beaded appearance on the coronal reformatted images. Procedure Note Feliciano Bruce MD - 12/28/[address] angiography head CT 3D Reconstruction Clinical Indication: Weakness TIA-- presents to the ER c/o left leg weakness. Patient states that she feels she has had another TIA because her left leg is weaker than normal, and she cannot lift it when she is laying on the bed. She started experiencing this weakness at about 10 AM this morning and it has been constant since. Technique: Axial CT images from the transverse aortic arch through the cranial vertex were obtained following the administration of 80 mL Visipaque 320 intravenous contrast. Multiplanar reformatted, maximum intensity projection, and 3D volume rendered reconstructions of the arterial vasculature of the neck and brain were performed on an independent workstation. An attempt was made to evaluate the vessels using the NASCET criteria. The CTA protocol is not the standard for the evaluation of aneurysms. This report was transcribed with a computerized speech recognition system. In an effort to expedite patient care, it has not been adjusted for typographical, grammatical or syntax problems by a trained medical office administrator. For questions about the report, please contact the Radiology Department. Findings: Neck: There is patency of the common carotid, internal carotid, and vertebral arteries. No major vessel occlusion can be identified. . The distal ICA's inferior to the skull base are normal in size. Small calcified plaque can be seen at carotid bifurcations bilaterally. The vertebral arteries are codominant. Head: The carotid siphons and the basilar arteries appear patent. No large branch occlusion can be seen. Small calcified plaque can be seen in the distal vertebral arteries and the distal ICAs. The posterior cerebral arteries show a beaded appearance on the coronal reformatted images. Julio Epstein DO CT ORDERABLES * PT-INR (12/28/2016 6:14 PM CDT) PT 10.1 9.5 - 11.6 sec 12/28/2016 6:32 PM CDT [facility] INR 1.0 0.9 - 1.1 12/28/2016 6:32 PM CDT [facility] LAB[facility] Blood BLOOD SPECIMEN / Unknown Venipuncture / Unknown 12/28/2016 6:14 PM CDT 12/28/2016 6:17 PM CDT Narrative [facility] - 12/28/2016 6:32 PM CDT Conventional Warfarin Anticoagulant Therapy: INR Reference Range: ??2.0-3.0 Intensive Warfarin Anticoagulant Therapy: INR Reference Range: ? 2.5-3.5 Julio Epstein DO LAB - COAGULATION ORDERABLES [facility] [address] [place] [address] * (ABNORMAL) URINALYSIS DIPSTICK AUTO (06/13/2016 12:45 PM HAND WORKER) Specific [place] UA >1.030(H) 1.005 - 1.030 [facility] INSURANCE BILL pH UA 7.0 5.0 - 8.0 pH [facility] INSURANCE BILL Color UA Yellow [facility] INSURANCE BILL Comment:REFERENCE RANGE: Str aw, Yellow, Dark Yellow Appearance Cloudy [facility] INSURANCE BILL Leukocyte UA Negative Negative [facility] INSURANCE BILL Protein UA Negative Negative [facility] INSURANCE BILL Glucose UA 3+(A) Negative [facility] INSURANCE BILL Ketone UA Negative Negative [facility] INSURANCE BILL Occult Blood Urine Negative Negative [facility] INSURANCE BILL Bilirubin UA Negative Negative [facility] INSURANCE BILL Urobilinogen 1.0 0.1 - 1.0 EU/DL [facility] INSURANCE BILL Nitrite UA Positive(A) Negative [facility] INSURANCE BILL Urine URINE / Unknown 06/13/2016 1 2:45 PM HAND WORKER 06/13/2016 Narrative Resulting Agency Comment [facility] [address] [facility] ??[facility] [id number] Jarrell Garrison MD LAB - URINALYSIS ORD ERABLES [facility] INSURANCE BILL [address] [place] [address] * PATHOLOGY TISSUE FOR DERMATOLOGY (10/24/2015 12:00 AM CDT) Result CASE: [id number] PATIENT: LOC LEON PATHOLOGIC DIAGNOSIS: A. Left neck: SEBORRHEIC KERATOSIS B. Right cheek A: VERRUCA VULGARIS CLINICAL DATA: A-B: VV, SCCIS. GROSS DESCRIPTION: A: ??Received is one formalin filled container labeled with the patients name and designated left neck. The specimen consists of a shave biopsy measuring [id number]. Jar 0. B: ??Received is one formalin filled container labeled with the patients name and designated right cheek A. The specimen consists of a shave biopsy measuring [id number]. Jar 0. MICROSCOPIC DESCRIPTION: SPECIMEN ??A Sections show an acanthotic lesion composed of relatively uniform keratinocytes. There is hyperkeratosis and pseudo horn cysts formation. SPECIMEN ??B There is digitated epidermal hyperplasia, hypergranulosis, vacuolated granular layer cells, and compact hyperorthokerato sis. Electronically signed out by Yoselin Penaloza M.D. 10/31/2015 4:17:21PM [facility] Comment: Performed at: Dermatopathology Laboratory [facility] - Department of Dermatology [address] [place] [address], 5th [place] [address] Phone number: [phone] FAX: [phone] 10/24/2015 10/30/2015 Historical Provider LAB - PATHOLOGY/C YTOLOGY ORDERABLES Performing Organization Address City/State/[facility] Co ks Phone Number [phone] [address] [place] [address]. [address] Floor Lab [address] [phone] * XR KNEE BILAT 3 VIEWS (12/09/2014 10:17 AM CDT) Anatomical Region Laterality Modality Lower Extremity Radiographic Mireya ging Narrative 12/09/2014 10:46 AM CDT Kati Choe, RT(R) ? 12/09/2014 10:46 AM SEE PROGRESS NOTES FOR FINAL RESULT Etienne Florez MD DIAGNOSTIC IMAGING O RDERABLES * XR ANKLE 3+ VW RIGHT (02/12/2012 4:57 PM CDT) Anatomical Region Laterality Modality Lower Extremity Radiographic Mireya ging 02/12/2012 5:00 PM CDT Impressions 02/12/2012 5:00 PM CDT No acute-appearing fracture can be identified at the ankle. The distal fibula is deformed suggesting old healed fracture but I do not have prior films available at this time. ?? Narrative 02/12/2012 5:00 PM CDT Examination: Right ankle three views Indication: Right ankle pain and swelling. Injury. Fell. Comparison: None Findings: Three views of the right ankle show deformity of the distal fibula consistent with an old healed fracture. No acute-appearing fracture line identified the lateral malleolus. A small calcification is noted at the tip of the medial malleolus but this appears to be at least partly corticated. Soft tissue swelling is noted at the ankle. Procedure Note Feliciano Bruce MD - 02/12/2012 Examination: Right ankle three views Indication: Right ankle pain and swelling. Injury. Fell. Comparison: None Findings: Three views of the right ankle show deformity of the distal fibula consistent with an old healed fracture. No acute-appearing fracture line identified the lateral malleolus. A small calcification is noted at the tip of the medial malleolus but this appears to be at least partly corticated. Soft tissue swelling is noted at the ankle. IMPRESSION No acute-appearing fracture can be identified at the ankle. The distal fibula is deformed suggesting old healed fracture but I do not have prior films available at this time. Nelson Pro MD DIAGNOSTIC IMAGING O RDERABLES * XR KNEE 4+ VW RIGHT (02/12/2012 4:56 PM CDT) Anatomical Region Laterality Modality Lower Extremity Radiographic Mireya ging 02/12/2012 5:02 PM CDT Impressions 02/12/2012 5:02 PM CDT Negative acute for fracture at this time. ??Please see above. ?? Narrative 02/12/2012 5:02 PM CDT Examination: Right knee four views Indication: ??Right knee pain. Injury. Fell. Findings: No fracture or dislocation can be identified. Bone mineral content is within the expected range for the patient's stated age. ?? The AP view shows a small linear calcification adjacent to medial femoral condyle. Also a small spur is noted on the medial femoral condyle. The linear calcification could be a Rio-Stieda lesion. If the patient's symptoms persist or worsen, consideration may be given to an alternative imaging modality such as an MRI or a bone scan to check for an occult process. Procedure Note Feliciano Bruce MD - 02/12/2012 Examination: Right knee four views Indication: Right knee pain. Injury. Fell. Findings: No fracture or dislocation can be identified. Bone mineral content is within the expected range for the patient's stated age. The AP view shows a small linear calcification adjacent to medial femoral condyle. Also a small spur is noted on the medial femoral condyle. The linear calcification could be a Rio-Stieda lesion. If the patient's symptoms persist or worsen, consideration may be given to an alternative imaging modality such as an MRI or a bone scan to check for an occult process. IMPRESSION Negative acute for fracture at this time. Please see above. Nelson Pro MD DIAGNOSTIC IMAGING O RDERABLES * CAROTID DUPLEX BILATERAL (01/13/2012 11:35 AM CDT) Anatomical Region Laterality Modality Ultrasound 01/13/2012 10:4 3 AM CDT Narrative Transcriptions Document, Scanned - 01/13/2012 3:33 PM CDT Nelson Ross MD VASCULAR LAB ORDERA BLES * ORGANISM ID REFLEXED (07/06/2010 1:59 PM HAND WORKER) Identification 1 SEE NOTE [facility] ([facility]) Comment: ??AEROBIC BACTERIUM ID [id number] ?MICRO NUMBER: ?[id number] ??TEST STATUS: ? FINAL ??SPECIMEN SOURCE: ?? URINE ??SPECIMEN QUALITY: ??ADEQUATE ??RESULT: ?Greater than 100,000 CFU/mL of ? Streptococcus viridans group ? May represent colonizers from external and ? internal genitalia. No further testing (including ? susceptibility) will be performed. ? Greater than 100,000 CFU/mL of ? Non-hemolytic Streptococci, not enterococcus ? May represent colonizers from external and ? internal genitalia. No further testing (including ? susceptibility) will be performed. ? 100-1,000 CFU/mL of Escherichia coli ?E.coli ?INT ?? DRAKE ?? AMPICILLIN ? R ? >=32 ?? AMP/SULBACTAM ?I ? 16 ?? CEFAZOLIN ?S ? <=4 ?? CEFEPIME ? S ? <=1 ?? CEFTRIAXONE ?S ? <=1 ?? CIPROFLOXACIN ?S ? <=0.25 ?? ERTAPENEM ?S ? <=0.5 ?? GENTAMICIN ? S ? <=1 ?? IMIPENEM ? S ? <=1 ?? LEVOFLOXACIN ? S ? <=0.12 ?? NITROFURANTOIN ? S ? <=16 ?? TOBRAMYCIN ? S ? <=1 ?? TRIMETHOPRIM/SULFA ? S ? <=20 Legend: S = Susceptible ??I = Intermediate ??R = Resistant ??NS = Not Susceptible * = Not Tested ??NR = Not Reported ??nn = See Therapy Comments REPORT COMMENT: PREFERRED LAB:->[facility] Test Performed at: [facility] [address] [place] [address] ??[id number] RUSSELL HAMLIN DO 07/06/2010 1:59 PM HAND WORKER 07/06/2010 11:57 PM HAND WORKER Fa Alannah Mendoza MD LAB - MICROBIOLOGY O RDERABLES [facility] ([facility]) * (ABNORMAL) CULTURE URINE COMPREHENSIVE (07/06/2010 1:59 PM HAND WORKER) Only the most recent of8 resultswithin the time period is included. Culture SEE NOTE(A) [facility] ([facility]) Comment: ??CULTURE, URINE, SPECIAL ?MICRO NUMBER: ?[id number] ??TEST STATUS: ? FINAL ??SPECIMEN SOURCE: ?? CLEAN CATCH URINE ??SPECIMEN QUALITY: ??ADEQUATE ??RESULT: ?Greater than 100,000 CFU/mL of ? Gram positive cocci isolated Strain 1 ? Greater than 100,000 CFU/mL of ? Gram positive cocci isolated Strain 2 ? 100-1,000 CFU/mL of Gram negative bacilli isolated ??COMMENT: ? May represent colonizers from external and ? internal genitalia. No further testing (including ? susceptibility) will be performed. Test Performed at: [facility] [address] ??[id number] RUSSELL HAMLIN DO 07/06/2010 1:59 PM HAND WORKER 07/06/2010 11:57 PM HAND WORKER Shawn Mendoza MD LAB - MICROBIOLOGY O HERNANDEZ Performing Organization Address City/[facility] [address]/[facility] Co de Phone Number [facility] ([facility] * LAB HISTORICAL RESULTS-ONBASE (12/24/2007 12:00 AM CDT) Only the most recent of4 resultswithin the time period is included. 12/24/2007 Historical Provider LAB - CHEMISTRY O HERNANDEZ Performing Organization Address [facility] [address]/[facility] Co de Phone Number [facility] * URINALYSIS - POINT OF CARE (AMB) [facility] (05/19/1998 12:00 AM HAND WORKER) Only the most recent of5 resultswithin the time period is included. Glucose UA neg [facility] Bilirubin UA POCT neg [facility] Ketones UA POCT neg [facility] Specific [place] UA 1.005 [facility] Blood Urine POCT neg [facility] pH UA 5.0 [facility] Protein UA neg [facility] Urobilinogen UA neg [facility] Nitrite UA neg [facility] WBC UA ++ [facility] Urine specimen (specimen) 05/19/1998 Fa Alannah Mendoza MD LAB - POINT OF CARE ORDERABLES [facility] Care Teams Supervisor Welding Equipment Repairer Relationship Specialty Start Date End Date Elizabeth Car MD [address] [place] [address] PCP - General Family Medicine 08/15/22 Etienne Florez MD Orthopedic Surgery 12/09/14 [place] [address] [address] Oncology 09/15/17 [place] [address] [facility] [address] [place] [address] Neurology 06/26/18 [place] [address] [facility] [address] [place] [address] Cardiovascular Disease 06/26/18 [place] [address] [address] Pulmonary Disease 06/26/18 Yuliya Ibarra MD [address] [facility] [address] [place] [address] Endocrinology 06/26/18 Phuong Callejas DPM [address] [place], [place] [address] Podiatry 06/26/18 Sy Barrientos MD [address] [facility] [place] [address] Ophthalmology 06/26/18 [place] [address] [address] Pulmonary Disease 06/26/18 Rico Gasca MD [address] [facility] [address] [place] [address] Urology 06/26/18 Elle Landaverde MD [address] [facility] [address] [place] [address] Vascular Surgery 06/26/18 Angela Truong MD [address] [facility] [address] [place] [address] Gastroenterology 06/26/18 [place] [address] [place] [address] General Surgery 06/26/18 [place] [address] [place] [address] Pulmonary Disease 11/10/20 Hussain Ray MD [address] [facility] [address] [place] [address] Urology 07/11/21
--- OUTSIDE RECORDS SUMMARY | 2024-05-26 12:33 | XMS_ITS ---
Author Organization [facility] Address [address] [facility] [place] [address] Care Team Providers Care Hydraulic Riveter Name Role Phone Etienne Florez MD Unavailable [phone] Enrique Gonzalez MD Unavailable [phone] Nelson Ross MD Unavailable [phone] Laz Valencia MD Unavailable Russell Moran MD Unavailable Yuliya Ibarra MD Unavailable [phone] Phuong Callejas DPM Unavailable Sy Barrientos MD Unavailable [phone] Russell Moran MD Unavailable Rico Gasca MD Unavailable Elle Landaverde MD Unavailable Kirk Truong MD Unavailable Shira Love DO Unavailable [phone] Sara Schultz MD Unavailable [phone] Hussain Ray MD Unavailable [phone] Elizabeth Car MD Primary Care Provider + Active Problems Problem Noted Date Diagnosed Date 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 05/20/2022 Chronic indwelling Olivas catheter 05/19/2022 Gastric outlet obstruction 05/18/2022 Chronic diastolic CHF (congestive heart failure) 05/01/2021 Overview (05/01/2021): Encounter Details Date Type Department Care Team Description 07/31/2020 Office Visit Elwin Sack Sorter?? [address]?? [address]?? [place] [address]?? [phone]?? Laz Valencia MD?? 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 No medications schedul ed. No medications scheduled. Past Plans No past plan information found. Radiation Treatments * No radiation treatments are documented for this patient in [facility]. Treatments may have been administered in another system. Lifetime Dose Tracking * Chemical Lifetime Dose Automatic Entry Manual Entr y Dose Length Product 1,035 mGy-cm 1,035 mGy-cm 0 mGy-cm Resolved Problems Problem Noted Date Diagnosed Date Resolved Date Ileus 05/20/2022 05/30/2022 Hypokalemia 05/20/2022 05/30/2022 Hypernatremia 05/20/2022 05/30/2022 Encephalopathy 05/18/2022 05/30/2022 SOB (shortness of breath) 09/26/2020 Urinary tract infection asso ciated with indwelling urethral catheter 07/20/2019 05/30/2022 Overview (07/20/2019): 03/2019 olivas catheter placed for incomplete emptying and overflow incontinence 04/[address] with cystitis 06/2019 proteus Assessment & Plan (07/20/2019 8:50 PM SPORTS TEAM MANAGER): - Lower urinary tract symptoms (LUTS) 03/23/2019 11/23/2019 Overview (03/24/2019): 11/2018 on myrbetriq 25mg (Dr. Gasca) with some improvement. Had confusion with 50mg? 03/24/19 PVR 304mL. Olivas placed for incontinence, quality of life. Stop myrbetriq. Assessment & Plan (07/20/2019 8:50 PM SPORTS TEAM MANAGER): - Assessment & Plan (06/01/2019 9:22 PM SPORTS TEAM MANAGER): - Assessment & Plan (03/23/2019 4:31 PM SPORTS TEAM MANAGER): - Pneumonia due to infectious organism 07/24/2018 [...]
--- OUTSIDE RECORDS SUMMARY | 2024-05-26 12:33 | XMS_ITS | Encounter Summary ---
Author Organization [facility] Health Address [address] [place] [place] [address] Care Team Providers Care Retail Parts Professional Name Role Phone Etienne Florez MD Unavailable [phone] Enrique Gonzalez MD Unavailable [phone] Nelosn Ross MD Unavailable Laz Valencia MD Unavailable Russell Moran MD Unavailable Yuliya Ibarra MD Unavailable [phone] Phuong Callejas DPM Unavailable [phone] Sy Barrientos MD Unavailable [phone] Russell Moran MD Unavailable Rico Gasca MD Unavailable Elle Landaverde MD Unavailable Kirk Truong MD Unavailable Shira Love DO Unavailable [phone] Sara Schultz MD Unavailable [phone] Hussain Ray MD Unavailable [phone] Enrique Gonzalez MD Unavailable [phone] Elizabeth Car MD Primary Care Provider + Reason for Visit * Reason Onset Date Comments Outreach Preventive Care 06/17/2022 Encounter Details Date Type Department Care Team (Late st Contact Info) Description 06/17/2022 Patient Outreach [facility] - Care Coordination [address] [address] Gricel Strickland Outreach Preventive Care Social History Tobacco Use Types Packs/Day Years [...] encounter Miscellaneous Notes * Telephone Encounter - Gricel Strickland - 06/17/2022 3:29 PM CST Patient resides in LTC facility, does not meet needs for program. Gricel Strickland Substance Abuse Services Director E WINDER documented in this encounter Plan of Treatment Not on file documented as of this encounter Goals Goal Patient Goal Type Associated Problems Recent Progress Patient-Stated? 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 8:09 AM GUIDE WINDER) No Alisa Jaramillo HEMOGLOBIN A1C < 7.0 Result Component 5.4( 12:00 AM CDT) No Alisa Jaramillo documented as of this encounter Visit Diagnoses Not on filedocumented in this encounter Care Teams Retail Parts Professional Relationship Specialty [place] [address] [address] PCP - Attributed-MSSP 11/16/21 10/03/22 Elizabeth Car MD [address] [facility] [address] [place] [address] PCP - General Family Medicine 05/31/22 08/05/22 Etienne Florez MD Orthopedic Surgery 12/09/14 [place] [address] [facility] [address] [place] [address] Oncology 09/15/17 [place] [address] [facility] [address] [place] [address] Neurology 06/26/18 [place] [address] [facility] [address] [place] [address] Cardiovascular Disease 06/26/18 [place] [address] [address] Pulmonary Disease 06/26/18 Yuliya Ibarra MD [address] [facility] [address] [place] [address] Endocrinology 06/26/18 Phuong Callejas DPM [address] [place], [place] [address] Podiatry 06/26/18 Sy Barrientos MD [address] [place] [address] [place] [address] Ophthalmology 06/26/18 [place] [address] [place] [address] Pulmonary Disease 06/26/18 Rico Gasca MD [address] [facility] [address] [place] [address] Urology 06/26/18 Elle Landaverde MD [address] [facility] [address] [place] [address] Vascular Surgery 06/26/18 Kirk Truong MD [address] [facility] [address] [place] [address] Gastroenterology 06/26/18 [place] [address] [address] [address] [facility] [address] [place] [address] General Surgery 06/26/18 [place] [address] [facility] [address] [place] [address] Pulmonary Disease 11/10/20 Hussain Ray MD [address] [facility] [address] [place] [address] Urology 07/11/21 documented as of this encounter
--- OUTSIDE RECORDS SUMMARY | 2024-05-26 12:33 | XMS_ITS | Encounter Summary ---
Author Organization [facility] Health Address [address] [place] [address] Care Team Providers Care Top Cager Name Role Phone Etienne Florez MD Unavailable [phone] Enrique Gonzalez MD Unavailable [phone] Nelson Ross MD Unavailable [phone] Laz Valencia MD Unavailable Russell Moran MD Unavailable [phone] Yuliya Ibarra MD Unavailable [phone] Phuong Callejas DPM Unavailable Sy Barrientos MD Unavailable Russell Moran MD Unavailable [phone] Rico Gasca MD Unavailable Elle Landaverde MD Unavailable Kirk Truong MD Unavailable Shira Love DO Unavailable [phone] Sara Shcultz MD Unavailable [phone] Hussain Ray MD Unavailable [phone] Enrique Gonzalez MD Unavailable [phone] Rosa Abraham RN Unavailable [phone] Elizabeth Car MD Primary Care Provider + Reason for Visit * Reason Onset Date Comments Transitional Care 05/31/2022 Encounter Details Date Type Department Care Team (Late st Contact Info) Description 05/31/2022 Patient Outreach [facility] Family Medicine [address] [place] [address] Rosa Abraham, DES Transitional Care Social History Tobacco Use Types Packs/Day [...] Telephone Encounter - Rosa Abraham RN - 05/31/2022 10:19 AM CLEANING HANDYMAN Sp[facility] with [facility] at the [facility] and confirmed 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 Chart updated to reflect patient's PCP. Patient will not be followed bycare management. NING HANDYMAN documented in this encounter Plan of Treatment Not on file documented as of this encounter Goals Goal Patient Goal Type Associated Problems Recent Progress Patient-Stated? 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 8:09 AM CLEANING HANDYMAN) No Alisa Jaramillo HEMOGLOBIN A1C < 7.0 Result Component 5.4( 12:00 AM CDT) No Alisa Jaramillo documented as of this encounter Visit Diagnoses Not on filedocumented in this encounter Care Teams Top Cager Relationship Specialty Start [place] [address] [address] PCP - Attributed-MSSP 11/16/21 10/03/22 Elizabeth Car MD [address] [facility] [address] [place] [address] PCP - General Family Medicine 05/31/22 08/05/22 Etienne Florez MD Orthopedic Surgery 12/09/14 [place] [address] [facility] [address] [place] [address] Oncology 09/15/17 [place] [address] [facility] [address] [place] [address] Neurology 06/26/18 [place] [address] [facility] [address] [place] [address] Cardiovascular Disease 06/26/18 Russell Moran MD [address] [place] [address] Pulmonary Disease 06/26/18 Yuliya Ibarra MD [address] [facility] [address] [place] [address] Endocrinology 06/26/18 Phuong Callejas DPM [address] [place], [place] [address] Podiatry 06/26/18 Sy Barrientos MD [address] [place] [address] [place] [address] Ophthalmology 06/26/18 Russell Moran MD [address] [place] [address] Pulmonary Disease 06/26/18 Rico Gasca MD [address] [facility] [address] [place] [address] Urology 06/26/18 Elle Landaverde MD [address] [facility] [address] [place] [address] Vascular Surgery 06/26/18 Kirk Truong MD [address] [facility] [address] [place] [address] Gastroenterology 06/26/18 [place] [address] [facility] [address] [place] [address] General Surgery 06/26/18 [place] [address] [facility] [address] [place] [address] Pulmonary Disease 11/10/20 Hussain Ray MD [address] [facility] [address] [place] [address] Urology 07/11/21 Rosa Abraham, DES Morgue AttendantRecord Librarian 05/31/22 05/31/22 documented as of this encounter
--- OUTSIDE RECORDS SUMMARY | 2024-05-26 12:34 | XMS_ITS | Encounter Summary ---
Author Organization [facility] Address [address] [facility] [place] [address] Care Team Providers Care Ops Manager Name Role Phone Etienne Florez MD Unavailable [phone] Enrique Gonzalez MD Unavailable [phone] Theresa Camargo MD Primary Care Provider Nelson Ross MD Unavailable Laz Valencia MD Unavailable Russell Moran MD Unavailable [phone] Yuliya Ibarra MD Unavailable Phuong Callejas DPM Unavailable [phone] Sy Barrientos MD Unavailable [phone] Russell Moran MD Unavailable Rico Gasca MD Unavailable Elle Landaverde MD Unavailable Kirk Truong MD Unavailable [phone] Shira Love DO Unavailable [phone] Sara Schultz MD Unavailable [phone] CandelariaBrooke quiñonez GRINDING MACHINE OPERATOR AUTOMATIC-COMMAND AND CONTROL OFFICER Unavailable [phone] Hussain Ray MD Unavailable [phone] Reason for Visit * Reason Onset Date Comments Update 08/01/2021 Encounter Details Date Type Department Care Team (Late st Contact Info) Description 08/01/2021 Telephone [facility] Health Cancer Care [address] [place] [address]. [address] [place] [address] Enrique [place] [id number] [place] [address] [address] [place] [address] Update Social History Tobacco Use Types Packs/Day Years Used Date Smoking Tobacco: Never Smokeless Tobacco: Never Alcohol Use Standard Drinks/Week Comments No 0 (1 standard drink = 0.6 oz pur e alcohol) PHQ-2 Answer Date Recorded PHQ2 TOTAL SCORE 0 08/01/2021 Sex and Gender Information Value Date Recorded Sex Assigned at Not on file Gender Identity Not on file Sexual Orientation Not on file documented as of this encounter Functional Status Functional Status Response Date of Assess ment Is person deaf or have serious hearing difficult y? No 09/27/2020 Is person blind or have serious difficulty seein g? No 09/27/2020 Does person have serious dif ficulty walking/climbing stairs? Yes 09/27/2020 Does person have difficulty dressing/bathing? Ye s 09/27/2020 Does person have difficulty doing errands alone? Yes 09/27/2020 Cognitive Status Response Date of Assessm ent Does person have difficulty concentrating/remembering/making decisions? No 09/27/2020 documented as of this encounter Miscellaneous Notes * Telephone Encounter - Marianela Nettles - 08/01/2021 2:56 PM CDT Merritt on 08/10/21 RTC in [address] Gonzalez wants to have her scheduled for the 10 of august for Prolia documented in this encounter Plan of Treatment Not on file documented as of this encounter Goals Goal Patient Goal Type Associated Problems Recent Progress Patient-Stated? 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 8:09 AM HEEL BREASTER) No Alisa Jaramillo HEMOGLOBIN A1C < 7.0 Result Component 5.4( 12:00 AM CDT) No Alisa Jaramillo documented as of this encounter Visit Diagnoses Not on filedocumented in this encounter Care Teams Ops Manager Relationship Specialty [place] [address] [facility] [address] [place] [address] PCP - General Internal Medicine 03/31/18 05/30/22 Brooke Haynes APRN-COMMAND AND CONTROL OFFICER [address] [facility] [address] [place] [address] PCP - Attributed-MSSP 10/17/20 09/15/21 Etienne Florez MD Orthopedic Surgery 12/09/14 [place] [address] [address] Oncology 09/15/17 [place] [address] [facility] 100 [place] [address] Neurology 06/26/18 [place] [address] [address] [facility] [address] [place] [address] Cardiovascular Disease 06/26/18 [place] [address] [address] Pulmonary Disease 06/26/18 Yuliya Ibarra MD [address] [place] [address] Endocrinology 06/26/18 Phuong Callejas DPM [address] [place], [place] [address] Podiatry 06/26/18 Sy Barrientos MD [address] [place], [place] [address] [address] Ophthalmology 06/26/18 [place] [address] [address] Pulmonary Disease 06/26/18 Rico Gasca MD [address] [facility] [address] [place] [address] Urology 06/26/18 Elle Landaverde MD [address] [facility] [address] [place] [address] Vascular Surgery 06/26/18 Kirk Truong MD [address] [facility] [address] [place] [address] Gastroenterology 06/26/18 [place] [address] [place] [address] [place] [address] General Surgery 06/26/18 [place] [address] [address] Pulmonary Disease 11/10/20 Hussain Ray MD [address] [facility] [address] [facility] [address] [place] [address] Urology 07/11/21 documented as of this encounter
--- OUTSIDE RECORDS SUMMARY | 2024-05-26 12:34 | XMS_ITS | Encounter Summary ---
Author Organization [facility] Address [address] [facility] [place] [address] Care Team Providers Care Facilities Technician Name Role Phone Etienne Florez MD Unavailable Enrique Gonzalez MD Unavailable [phone] Theresa Camargo MD Primary Care Provider Nelson Ross MD Unavailable Laz Valencia MD Unavailable Russell Moran MD Unavailable Yuliya Ibarra MD Unavailable Phuong Callejas DPM Unavailable [phone] Sy Barrientos MD Unavailable Russell Moran MD Unavailable Rico Gasca MD Unavailable Elle Landaverde MD Unavailable [phone] Kirk Truong MD Unavailable [phone] Shira Love DO Unavailable Sara Schultz MD Unavailable [phone] Ivy Brooke APRN-[facility] Unavailable [phone] Reason for Visit * Reason Onset Date Comments Medication Problem 05/10/2021 Encounter Details Date Type Department Care Team (Late st Contact Info) Description 05/10/2021 Telephone [facility] Family Medicine [address] [facility] [address] [place] [address] [place] [address] [facility] [address] [place] [address] Medication Problem Social History Tobacco Use Types Packs/Day Years Used Date Smoking Tobacco: Never Smokeless Tobacco: Never Alcohol Use Standard Drinks/Week Comments No 0 (1 standard drink = 0.6 oz pur e alcohol) Sex and Gender Information Value Date Recorded [...] encounter Miscellaneous Notes * Telephone Encounter - Lexus Starks - 05/10/2021 8:37 AM CST Pharmacist Rahel contact office stating they do have the chewable tablets cefixime (SUPRAX) 200 MG chew tablet??. Pharmacist requesting for prescription to be changed to capsule instead. NCE AND HAIRSPRING ASSEMBLER documented in this encounter Plan of Treatment Not on file documented as of this encounter Goals Goal Patient Goal Type Associated Problems Recent Progress Patient-Stated? 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 8:09 AM BALANCE AND HAIRSPRING ASSEMBLER) No YeceniaAlisa marks HEMOGLOBIN A1C < 7.0 Result Component 5.4( 12:00 AM CDT) No AllisonflorentinoAlisa marks documented as of this encounter Visit Diagnoses Not on filedocumented in this encounter Care Teams Facilities Technician Relationship Specialty [place] [address] [facility] [address] [place] [address] PCP - General Internal Medicine 03/31/18 05/30/22 Brooke Haynes APRN-GAS MAIN FITTER [address] [facility] [address] [place] [address] PCP - Attributed-MSSP 10/17/20 09/15/21 Etienne Florez MD Orthopedic Surgery 12/09/14 [place] [address] [address] Oncology 09/15/17 [place] [address] [address] Neurology 06/26/18 [place] [address] [address] Cardiovascular Disease 06/26/18 [place] [address] [address] Pulmonary Disease 06/26/18 Yuliya Ibarra MD [address] [place] [address] Endocrinology 06/26/18 Phuong Callejas DPM [address] [place], [place] [address] Podiatry 06/26/18 Sy Barrientos MD [address] [place] [address] [place] [address] Ophthalmology 06/26/18 [place] [address] [id number] Pulmonary Disease 06/26/18 Rico Gasca MD [address] [facility] [address] [place] [address] Urology 06/26/18 Elle Landaverde MD [address] [facility] [address] [place] [address] Vascular Surgery 06/26/18 Kirk Truong MD [address] [facility] [address] [place] [address] Gastroenterology 06/26/18 [place] [address] [place] [address] General Surgery 06/26/18 [place] [address] [address] Pulmonary Disease 11/10/20 documented as of this encounter
--- OUTSIDE RECORDS SUMMARY | 2024-05-26 12:34 | XMS_ITS | Encounter Summary ---
Author Organization [facility] Address [address] [place] [address] Care Team Providers Care Client Relations Representative Name Role Phone Etienne Florez MD Unavailable Enrique Gonzalez MD Unavailable [phone] Theresa Camargo MD Primary Care Provider [phone] Nelson Ross MD Unavailable Laz Valencia MD Unavailable Russell Moran MD Unavailable [phone] Yuliya Ibarra MD Unavailable Phuong Callejas DPM Unavailable [phone] Sy Barrientos MD Unavailable [phone] Russell Moran MD Unavailable Rico Gasca MD Unavailable Elle Landaverde MD Unavailable [phone] Kirk Truong MD Unavailable [phone] Shira Love DO Unavailable [phone] Sara Schultz MD Unavailable [phone] Candelariakhang Brooke STRATEGIC DEVELOPMENT MANAGER-TEST BAKER Unavailable [phone] Hussain Ray MD Unavailable [phone] Reason for Visit * Reason Comments Follow-up Encounter Details Date Type Department Care Team (Late st Contact Info) Description 08/01/2021 2:00 PM CDT Video Visit [facility] [id number] [place] [address]. [address] [place] [address] Enrique Gonzalez MD [id number] [place] [address] Malignant neoplasm of upper-outer quadrant of left breast in female, estrogen receptor positive (HCC) ; Osteopenia of multiple sites; Iron deficiency anemia due to chronic blood loss; Aromatase inhibitor use Social History Tobacco Use Types Packs/Day Years [...] No 09/27/2020 documented as of this encounter Patient Instructions * Patient Instructions* Enrique Gonzalez MD - 08/01/2021 2:51 PM CDT Prolia on 08/10/21 RTC in 6 months with BMP documented in this encounter Progress Notes * Enrique Gonzalez MD - 08/01/2021 2:33 PM CDT Today's visit was conducted virtually due to COVID-19 countermeasures. The patient has given verbalconsent to have today's visit conducted by this same means with treatment provided remotely. The patient verbally consents to the billing and collection practices of the provider's medical group. Patient location: Home This encounter was performed using: audio and video Total time spent on visit on date of encounter is: 30 minutes with 20 minutes spent in medical discussion Oncology Clinic Follow Up Note Date of Follow Up: 08/01/2021 Patient Name:??Perla Leon??is a 80??y.o. Female ??= 1940 ? Surgeon:?Dr Shira Love? PCP: Jarrell Garrison MD ? 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 Arimidex 1 mg po daily started on 09/17/17 Prolia 60 mg SQ Q 6 months started??on 01/14/18 ? C/C: Patient recently hospitalized in OSH for significant iron deficiency anemia came in for CBC check and follow-up ? HPI: Perla Leon??is an 80 ??y.o.?? woman with history of TIA, atrial fib, DM, heart murmur, partal seizures, famlial spastic paraparesis and obesity, diagnosed with left breast cancer in August2017 and has been on Arimidex came today for 6 months follow up. Missed her appointment on 06/02/2020. She??initially underwent routine screening mammogram on 07/02/17 that showed a questionable ??spiculated mass in the upper outer left breast. ??Diagnostic mammogram 07/30/17 and breast ultrasound exam confirmed the abnormality. She had excisional biopsy on 08/25/[address] Love that showed 1.1 cm grade 2 infiltrating ductal carcinoma with DC IS, no vascular or neural invasion, + micro calcifications present, and all surgical margins free of tumor (closest margin, posterior at 4 mm). ??She had SLNB on 09/08/17 and two lymph nodes were negative for tumor involvement. She was seen by Rad/Onc but decided to forgo adjuvant XRT. She was started on Arimidex 1 mg po daily on 09/17/17. She is tolerating it well. Her last mammogram was 02/23/2020 and was benign. DEXA in 10/2017 showed osteopenia for which she has been on calcium and Vit D supplement and was started Prolia on 01/14/18. She had another DEXA scan at [facility] on 06/06/2020 and showed still osteopenia. Cross referenced seeing the T-score on current bone density to the 1 from October 2017, she appears to have stable bone density. Will continue on Prolia. Her serum calcium level is elevated (Ca= 10.5 mg/dl) due to hyperparathyroidism. She also has hypothyroidism and is following with an produce field merchandiser at [facility]. She was hospitalized at [facility] from 12/20 - 12/28/20 for his significant anemia, evaluation showed evidence of iron deficiency. Her last colonoscopy was in 02/2019. She received 3 dosesof IV iron and 1 unit PRBC transfusion. EGD showed no evidence of bleeding in the esophagus or stomach. She required sigmoidoscopy and fecal disimpaction for chronic constipation. Her admission hemoglobins 7.4 and was discharged with 9.5. She was given IV iron infusion on 02/09 and 02/16/2021. Patient had bowel incontinent issues and has missed her appointment in the last couple months. They are willing to come on 08/10 for Prolia Medical History Past Medical History: Diagnosis Date ??? Asthma 2012 ??? Atrial fibrillation 2015 ??? Breast cancer 08/25/2017 left ??? Broken ankle 12/19/2003 ??? CAD (coronary artery disease) 60 % blockage 2010 ??? Chronic idiopathic constipation 12/12/2017 ??? Chronically dry eyes 06/26/2018 ??? DM (diabetes mellitus) ??? Duodenal ulcer, unspecified as acute or chronic, without hemorrhage, perforation, or obstruction 1977 ??? Familial spastic paraplegia 1979 ??? Fracture of sacrum 05/1999 [place] ??? Glaucoma 06/2003 ??? Heart murmur 01/27/2004, 03/13/2004 ??? History of TIA (transient ischemic attack) 10/22/2017 ??? HTN (hypertension) ??? Hyperparathyroidism 06/26/2018 ??? 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 IBS (irritable bowel syndrome) ??? Iron deficiency anemia due to chronic blood loss 12/12/2017 ??? Left ventricular hypertrophy 06/26/2018 ??? Lymphatic edema ??? 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 ER pos 97% (strong), TX pos 23% (moderate), Her-2 neg (1+ on IHC), Ki-67 19% S/p 08/25/2017 excisional biopsy (Kate); spastic paraplegia: 1.1 cm grade 2/3 IDC. No LVI. Margin neg S/p 09/08/2017 sentinel node biopsy (Kate): 2 neg nodes Med onc:Dr. Gonzalez: adjuvant anastrozole Rad onv: Dr. Garcia: decided against radiation ??? Melena 12/12/2017 ??? Mixed hyperlipidemia 10/22/2017 ??? Neuropathy ??? OAB (overactive bladder) 06/26/2018 ??? Obesity ??? CATY (obstructive sleep apnea) ??? Osteopenia of multiple sites 10/29/2017 ??? Partial seizures 2000 ??? Pneumonia 1989, 08/2005, 07/2010 ??? Pneumonia due to infectious organism 07/24/2018 Call to pt to report chest xray showed atelectasis or pneumonia in the right base, on the right antibiotic, see in 10 days. Breath in through nose and blow out through pursed lips 10 times every hourwhen awake. Spoke with pt. . 08-06-2018 Chest xray again showed pneumonia. 08-07-2018/08-10-2018.. CT chest: Call to pt to report CT scan, minimal pneumonia still in the right middle lobe. Follow up with Dr. Camagro when you finish rx, trying to get you in to see her about August 17. She may want you tosee pulmonology if not improving and/or check chest xray again. Spoke with pt. ??? Primary hypothyroidism 05/06/2018 ??? Shingles 2002, 2006 ??? Sleep apnea 01/07/2011 ??? Small vessel disease, cerebrovascular ??? TIA (transient ischemic attack) 2000, 08/11/2008 ??? Type 2 diabetes mellitus without complication 01/07/2011 Medications Reviewed Surgical History Past Surgical History: Procedure Laterality Date ??? BREAST BIOPSY, EXCISION Left 08/25/2017 Left; EXCISION LEFT BREAST BX W/WIRE LOC IN RADIOLOGY: malignant ??? CARDIAC CATH 08/04/2002, 09/06/2010 ??? Cholecystectomy 10/28/1997 ??? COLONOSCOPY 2011 ??? COLONOSCOPY 02/17/2019 COLONOSCOPY WITH BIOPSY AND POSSIBLE POLYPECTOMY ??? ENDOSCOPY, UPPER 12/23/2017 ESOPHAGOGASTRODUODENOSCOPY (EGD) DIAGNOSTIC WITH BIOPYS AND OR POLYPECTOMY ??? Hernia Repair 01/17/2010 ??? Hysterectomy 1986 ??? Knee Arthroscopy Right 05/06/2001 RT KNEE; and 09/27/2003 ??? LYMPH NODE EXCISION Left 09/08/2017 left axillary sentinel node biopsy ??? Nasal Procedure/Surgery 1985 BROKEN NOSE SURGERY ??? PROC BIOPSY 07/07/2008 LT LEG, RT CHEEK ??? SURGICAL HISTORY OF 1974 REMOVAL OF ULCER FROM VOCAL CORD ??? SURGICAL HISTORY OF 09/10/2010 PELVIC PROLAPSED RECONSTRUCTION ??? SURGICAL HISTORY OF 07/20/2008 FREEZE PRECANCEROUS SPOT RT CHEEK ??? SURGICAL HISTORY OF 07/05/2008 FREEZE PRECANCERSOUS SPOTS ON RT AND LT ARM ??? THYROID NEEDLE BIOPSY Allergies Allergies Allergen Reactions ??? Advair Diskus YEAS INFECTION ??? Aricept [Donepezil] Other I dont remember ??? Diltiazem Swelling ??? Metformin Diarrhea ??? Fluticasone Diarrhea ??? Piper Longum ??? Salmeterol Diarrhea ??? Sotalol Other Hair loss Social History Social History Tobacco Use ??? Smoking status: Never Smoker ??? Smokeless tobacco: Never Used Substance Use Topics ??? Alcohol use: No Alcohol/week: 0.0 standard drinks Review of Systems A comprehensive review of systems was performed. The rest pertinent positives and/or negatives werenoted in the HPI. ECOG 3 PS Physical Exam N/A Labs Labs from 07/28/21 reviewed Assessment & Plan ? 1. LETA - cause is unclear - recent EGD unremarkable - last colonoscopy in 02/2019 - reported melena - responded well to IV iron -encouraged her to continue oral ferrous sulfate +vitamin B12 supplement - IV iron given on 02/09 as well as 02/16/2021 - 07/28/21: hemoglobin 16.7, MCV 87, ferritin 32, iron saturation 19% and TIBC 314 - if her H&H drops further, colonoscopy and capsule endoscopy may be the next step - will monitor her CBC in 4-6 months 2. Malignant neoplasm of upper-outer quadrant of left breast in female, ER+, HER2 negative, Stage IA ??- Arimidex started on 09/17/17 and has been tolerated well - Self breast exam - Mammogram 02/23/2020 was benign. Patient and daughter are thinking to forego any future mammograms and will continue on clinical exam and self-breast exam - no breast exam today as this is a Tele visit 3. Osteopenia: on Prolia Q 6 months. Her serum calcium is 10.5 today which is elevated. Her prior PTH was also elevated consistent is hyperparathyroidism. She is advised to hold calcium supplement and is following was produce field merchandiser at [facility]. Continue on Prolia. DEXA scan at [facility] on 06/06/2020 showed stable osteopenia 4. Family history of breast cancer : genetic testing sent in the past but results not available formy review ? 5. Famlial Spastic Paraparesis f/u with Dr Ross Plan: Prolia on 08/10/21 RTC in 6 months with MADDISON Gonzalez MD 08/01/2021 3:07 PM documented in this encounter Plan of Treatment Not on file documented as of this encounter Goals Goal Patient Goal Type Associated Problems Recent Progress Patient-Stated? 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 8:09 AM INSULATION ESTIMATOR) No Alisa Jaramillo HEMOGLOBIN A1C < 7.0 Result Component 5.4( 1 12:00 AM CDT) No VilmasarthakAlisa marks documented as of this encounter Visit Diagnoses Diagnosis Malignant neoplasm of upper-outer quadrant of left breast in female, estrogen receptor positive (HCC)- Primary Osteopenia of multiple sites Iron deficiency anemia due to chronic blood loss Iron deficiency anemia secondary to blood loss (chronic) Aromatase inhibitor use Use of aromatase inhibitors documented in this encounter Care Teams Client Relations Representative Relationship Specialty Start [place] [address] [address] PCP - General Internal Medicine 03/31/18 05/30/22 Brooke Haynes APRN-TEST BAKER [address] [address] PCP - Attributed-MSSP 10/17/20 09/15/21 Etienne Florez MD Orthopedic Surgery 12/09/14 [place] [address] [phone] Oncology 09/15/17 [place] [address] [phone] Neurology 06/26/18 [place] [address] [address] Cardiovascular Disease 06/26/18 [place] [address] [id number] Pulmonary Disease 06/26/18 Yuliya Ibarra MD [address] [place] [address] Endocrinology 06/26/18 Phuong Callejas DPM [address] [place], [place] [id number] Podiatry 06/26/18 Sy Barrientos MD [facility] [place] [address] Ophthalmology 06/26/18 [place] [address] [id number] Pulmonary Disease 06/26/18 Rico Gasca MD [address] [place] [address] Urology 06/26/18 Elle Landaverde MD [address] [place] [address] Vascular Surgery 06/26/18 Kirk Truong MD [address] [facility] [address] [place] [address] Gastroenterology 06/26/18 [place] [address] [place] [address] [place] [phone] General Surgery 06/26/18 [place] [address] [facility] [address] [place] [address] Pulmonary Disease 11/10/20 Hussain Ray MD [address] [facility] [address] [place] [address] Urology 07/11/21 documented as of this encounter
--- OUTSIDE RECORDS SUMMARY | 2024-05-26 12:34 | XMS_ITS | Encounter Summary ---
Author Organization [facility] Address [address] [facility] [place] [address] Care Team Providers Care Railroad Detective Name Role Phone Etienne Florez MD Unavailable Enrique Gonzalez MD Unavailable [phone] Theresa Camargo MD Primary Care Provider Nelson Ross MD Unavailable [phone] Laz Valencia MD Unavailable Russell Moran MD Unavailable [phone] Yuliya Ibarra MD Unavailable [phone] Phuong Callejas DPM Unavailable [phone] Sy Barrientos MD Unavailable Russell Moran MD Unavailable Rico Gasca MD Unavailable Elle Landaverde MD Unavailable [phone] Kirk Truong MD Unavailable [phone] Shira Love DO Unavailable [phone] Sara Schultz MD Unavailable [phone] Hussain Ray MD Unavailable [phone] Enrique Gonzalez MD Unavailable [phone] Encounter Details Date Type Department Care Team (Late st Contact Info) Description 02/15/2022 Orders Only [facility] [address] [facility]. [address] [place] [address] [place] [address] [facility] [address] [place] [address] Malignant neoplasm of upper-outer quadrant of left breast in female, estrogen receptor positive (HCC) ; Aromatase inhibitor use Social History Tobacco Use [...] No 09/27/2020 documented as of this encounter Plan of Treatment Not on file documented as of this encounter Goals Goal Patient Goal Type Associated Problems Recent Progress Patient-Stated? 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 8:09 AM BAILER OPERATORS SUPERVISOR) No Alisa Jaramillo HEMOGLOBIN A1C < 7.0 Result Component 5.4(07/23/202 1 12:00 AM CDT) Alisa Ware documented as of this encounter Visit Diagnoses Diagnosis Malignant neoplasm of upper-outer quadrant of left breast in female, estrogen receptor positive (HCC)- Primary Aromatase inhibitor use Use of aromatase inhibitors documented in this encounter Care Teams Railroad Detective Relationship Specialty [place] [address] [facility] [address] [place] [address] PCP - General Internal Medicine 03/31/18 05/30/22 [place] [address] [facility] [address] [place] [address] PCP - Attributed-MSS 11/16/21 10/03/22 Etienne Florez MD Orthopedic Surgery 12/09/14 [place] [address] [facility] [address] [place] [address] Oncology 09/15/17 [place] [address] [facility] [address] [place] [phone] Neurology 06/26/18 [place] [address] [facility] [address] [place] [address] Cardiovascular Disease 06/26/18 [place] [address] [address] Pulmonary Disease 06/26/18 Yuliya Ibarra MD [address] [place] [phone] Endocrinology 06/26/18 Phuong Callejas DPM [address] [place] [address] Podiatry 06/26/18 Sy Barrientos MD [address] [place] [address] [place] [address] Ophthalmology 06/26/18 [place] [address] [address] Pulmonary Disease 06/26/18 Rico Gasca MD [address] [facility] [address] [place] [address] Urology 06/26/18 Elle Landaverde MD [address] [facility] [address] [place] [address] Vascular Surgery 06/26/18 Kirk Truong MD [address] [facility] [address] [place] [address] Gastroenterology 06/26/18 [place] [address] [address] [address] [place] [address] General Surgery 06/26/18 [place] [address] [place] [address] Pulmonary Disease 11/10/20 Hussain Ray MD [address] [facility] [address] [facility] [address] [place] [address] Urology 07/11/21 documented as of this encounter
--- OUTSIDE RECORDS SUMMARY | 2024-05-26 12:34 | XMS_ITS | Encounter Summary ---
Author Organization [facility] Address [address] [facility] [place] [address] Care Team Providers Care Receptionist Name Role Phone Etienne Florez MD Unavailable Enrique Gonzalez MD Unavailable [phone] Theresa Camargo MD Primary Care Provider [phone] Nelson Ross MD Unavailable [phone] Laz Valencia MD Unavailable Russell Moran MD Unavailable Yuliya Ibarra MD Unavailable [phone] Phuong Callejas DPM Unavailable [phone] Sy Barrientos MD Unavailable Russell Moran MD Unavailable Rico Gasca MD Unavailable Elle Landaverde MD Unavailable Kirk Truong MD Unavailable [phone] Shira Love DO Unavailable [phone] Sara Schultz MD Unavailable [phone] Hussain Ray MD Unavailable [phone] Enrique Gonzalez MD Unavailable [phone] Encounter Details Date Type Department Care Team (Late st Contact Info) Description 02/11/2022 Orders Only [facility] [address] [facility]. [address] [place] [address] [place] [address] [facility] [address] [place] [address] Social History Tobacco Use Types Packs/Day Years [...] < 140/90 Blood Pressure 127/52(2022 8:09 AM SLIP DUMPER) No Alisa Jaramillo HEMOGLOBIN A1C < 7.0 Result Component 5.4( 12:00 AM CDT) No Alisa Jaramillo documented as of this encounter Visit Diagnoses Not on filedocumented in this encounter Care Teams Receptionist Relationship Specialty [place] [address] [facility] [address] [place] [address] PCP - General Internal Medicine 03/31/18 05/30/22 [place] [address] [facility] [address] [place] [address] PCP - Attributed-MSSP 11/16/21 10/03/22 Etienne Florez MD Orthopedic Surgery 12/09/14 [place] [address] [facility] [address] [place] [address] Oncology 09/15/17 [place] [address] [facility] [address] [place] [address] Neurology 06/26/18 [place] [address] [facility] [address] [place] [address] Cardiovascular Disease 06/26/18 [place] [address] [address] Pulmonary Disease 06/26/18 Yuliya Ibarra MD [address] [facility] [address] [place] [phone] Endocrinology 06/26/18 Phuong Callejas DPM [address] [place] [address] Podiatry 06/26/18 Sy Barrientos MD [address] [place] [address] [place] [address] Ophthalmology 06/26/18 [place] [address] [address] Pulmonary Disease 06/26/18 Rico Gasca MD [address] [address] Urology 06/26/18 Elle Landaverde MD [address] [address] Vascular Surgery 06/26/18 Kirk Truong MD [address] [address] Gastroenterology 06/26/18 [place] [address] [facility] [address] [place] [address] General Surgery 06/26/18 [place] [address] [facility] [address] [place] [address] Pulmonary Disease 11/10/20 Hussain Ray MD [address] [facility] [address] [place] [address] Urology 07/11/21 documented as of this encounter
--- OUTSIDE RECORDS SUMMARY | 2024-05-26 12:34 | XMS_ITS | Encounter Summary ---
Author Organization [facility] Address [address] [facility] [place] [address] Care Team Providers Care Plastic Fixture Builder Name Role Phone Etienne Florez MD Unavailable Enrique Gonzalez MD Unavailable [phone] Theresa Camargo MD Primary Care Provider Nelson Ross MD Unavailable [phone] Laz Valencia MD Unavailable Russell Moran MD Unavailable Yuliya Ibarra MD Unavailable [phone] Phuong Callejas DPM Unavailable [phone] Sy Barrientos MD Unavailable Russell Moran MD Unavailable Rico Gasca MD Unavailable Elle Landaverde MD Unavailable Kirk Truong MD Unavailable [phone] Shira Love DO Unavailable [phone] Sara Schultz MD Unavailable [phone] Hussain Ray MD Unavailable [phone] Enrique Gonzalez MD Unavailable [phone] Reason for Visit * Reason Onset Date Comments Question 02/13/2022 Encounter Details Date Type Department Care Team (Late st Contact Info) Description 02/13/2022 Telephone [facility] Health Cancer Care [address] [facility] [address] [place] [address] [place] [address] [facility] [address] [place] [address] Question Social History Tobacco Use Types Packs/Day Years [...] encounter Miscellaneous Notes * Telephone Encounter - Vaishnavi Wan - 02/13/2022 1:29 PM CDT Pt's daughter called to reschedule infusion appt on 02/15 due to the compressed air pile driver operator testing positive forCovid. Please contact Ange. documented in this encounter Plan of Treatment Not on file documented as of this encounter Goals Goal Patient Goal Type Associated Problems Recent Progress Patient-Stated? 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 8:09 AM SUB ARC OPERATOR) No ClintAmberAlisa HEMOGLOBIN A1C < 7.0 Result Component 5.4( 12:00 AM CDT) No Alisa Jaramillo documented as of this encounter Visit Diagnoses Not on filedocumented in this encounter Care Teams Plastic Fixture Builder Relationship Specialty [place] [address] [facility] [address] [place] [address] PCP - General Internal Medicine 03/31/18 05/30/22 [place] [address] [facility] [address] [place] [address] PCP - Attributed-MSSP 11/16/21 10/03/22 Etienne Florez MD Orthopedic Surgery 12/09/14 [place] [address] [facility] [address] [place] [address] Oncology 09/15/17 [place] [address] [facility] [address] [place] [address] Neurology 06/26/18 [place] [address] [facility] [address] [place] [address] Cardiovascular Disease 06/26/18 [place] [address] [id number] Pulmonary Disease 06/26/18 Yuliya Ibarra MD [address] [place] [address] Endocrinology 06/26/18 Phuong Callejas DPM [address] [place] [address] Podiatry 06/26/18 Sy Barrientos MD [address] [place] [address] [place] [address] Ophthalmology 06/26/18 [place] [address] [address] Pulmonary Disease 06/26/18 Rico Gasca MD [address] [facility] [address] [place] [address] Urology 06/26/18 Elle Landaverde MD [address] [facility] [address] [place] [address] Vascular Surgery 06/26/18 Kirk Truong MD [address] [facility] [address] [place] [address] Gastroenterology 06/26/18 [place] [address] [place] [address] [place] [address] General Surgery 06/26/18 [place] [address] [address] Pulmonary Disease 11/10/20 Hussain Ray MD [address] [facility] [address] [facility] [address] [place] [address] Urology 07/11/21 documented as of this encounter
--- OUTSIDE RECORDS SUMMARY | 2024-05-26 12:34 | XMS_ITS | Encounter Summary ---
Author Organization [facility] Address [address] [facility] [place] [address] Care Team Providers Care Central Office Repairer Name Role Phone Etienne Florez MD Unavailable Enrique Gonzalez MD Unavailable [phone] Theresa Camargo MD Primary Care Provider [phone] Nelson Ross MD Unavailable Laz Valencia MD Unavailable Russell Moran MD Unavailable Yuliya Ibarra MD Unavailable Phuong Callejas DPM Unavailable [phone] Sy Barrientos MD Unavailable Russell Moran MD Unavailable [phone] Rico Gasca MD Unavailable [phone] Elle Landaverde MD Unavailable Kirk Truong MD Unavailable [phone] Shira Love DO Unavailable [phone] Sara Schultz MD Unavailable [phone] Brooke Haynes APRN-[facility] Unavailable [phone] Encounter Details Date Type Department Care Team (Latest Contact Info) Description 06/15/2021 7:20 AM HISTOLOGY AIDE - 06/15/2021 11:59 PM [facility] Hospital Encounter [facility] [address] [place] [address] [place] [address] [facility] 100 [place] [address] Discharge Disposition: Home or Self Care Social History Tobacco Use Types Packs/Day [...] No 09/27/2020 documented as of this encounter Medications at Time of Discharge Medication Sig Dispensed Refills Start Date End Date dorzolamide (TRUSOPT) 2 % ophthalmic solution Instill 1 drop into both eyes 2 times daily 11/16/2019 flecainide (TAMBOCOR) 50 MG tablet Take 1 (one) tablet by mouth 2 times daily 09/11/2020 furosemide (LASIX) 40 MG tablet Take 1 (one) tablet by mouth once daily 90 tablet 2 07/04/2020 linaCLOtide (LINZESS) 290 MCG capsule Take 290 mcg by mouth daily before breakfast Take on an empty stomach at least 30 minutes prior to first meal of the day. multivitamin with iron (ONE A DAY WITH IRON) tablet Take 1 Tab by mouth once daily. PROLENSA 0.07 % opthalmic solution Instill 1 drop into right eye once daily 2 02/25/2019 SITagliptin (JANUVIA) 100 MG tablet Take 100 mg by mouth once daily spironolactone (ALDACTONE) 25 MG tablet Take 25 mg by mouth once daily trospium (SANCTURA) 20 MG tablet Take 20 mg by mouth 2 times daily 01/04/2021 vitamin D3 (CHOLECALCIFEROL) 25 MCG (1000 UNITS) tablet Take 1,000 Units by mouth once daily ALPRAZolam (XANAX) 0.25 MG tablet Take 0.25 mg by mouth 2 times daily as needed for Anxiety 05/30/2022 amitriptyline (ELAVIL) 25 MG tablet TAKE 2 TABLETS BY MOUTH EVERY DAY AT BEDTIME 180 tablet 3 02/19/2021 08/13/2021 amoxicillin-clavula quentin (AUGMENTIN) 875-125 MG tablet Take 1 (one) tablet by mouth every 12 hours for 7 days 14 tablet 06/12/2021 06/19/2021 anastrozole (ARIMIDEX) 1 MG tablet TAKE 1 TABLET DAILY FOR 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 90 tablet 3 06/21/2020 06/18/2021 apixaban (ELIQUIS) 5 MG tablet Take 1 (one) tablet by mouth 2 times daily Take 10 mg po bid till 10/05 and then continue 5 mg po bid there after 60 tablet 11 10/12/2020 10/12/2021 BD PEN NEEDLE HAYDEN U/F 32G X 4 MM MISC USE TO INJECT INSULIN ONCE DAILY 05/05/2020 05/21/2022 canagliflozin (INVOKANA) 100 MG tablet Take 100 mg by mouth daily before breakfast 07/21/2019 Cranberry-Vitamin C (AZO CRANBERRY URINARY TRACT) 250-60 MG Take 2 tablets by mouth once daily 05/21/2022 [facility] SENNA 8.6 MG tablet Take 1 tablet by mouth 2 times daily 05/28/2021 05/21/2022 Cyanocobalamin 1000 MCG Take by mouth once daily. 05/21/2022 denosumab (PROLIA) 60 MG/ML SC injection Inject 60 mg subcutaneously Every 180 days 05/30/2022 docusate sodium (Colace) 100 MG capsule Take 1 (one) capsule by mouth every 2 days 05/30/2022 esomeprazole (NEXIUM) 40 MG capsule TAKE 1 CAPSULE DAILY 90 capsule 3 03/27/2021 05/21/2022 FREESTYLE LITE STRIPS test strip TEST BLOOD SUGARS THREE TIMES A DAY 05/05/2020 05/21/2022 glimepiride (AMARYL) 1 MG tablet Take 1 mg by mouth 3 times daily 2 tabs in the AM, 2 tabs at noon and 1 tab at bedtime 05/21/2022 insulin glargine (LANTUS) pen Inject 12 (twelve) Units subcutaneously every morning 05/30/2022 levothyroxine (SYNTHROID) 75 MCG tablet Take 1 (one) tablet by mouth once daily 90 tablet 4 12/14/2020 05/21/2022 metOLazone (ZAROXOLYN) 2.5 MG tablet Take 1 tablet by mouth twice a week on Friday and 05/30/2022 polyethylene glycol 3350 (Miralax) 17 g packet Take 17 (seventeen) g by mouth every 2 days 04/19/2021 05/30/2022 potassium chloride ER (KLOR-CON) 20 MEQ tablet TAKE 1 TABLET BY MOUTH FOUR TIMES A DAY 360 tablet 2 12/01/2020 05/21/2022 rosuvastatin (CRESTOR) 10 MG tablet Take 1 tablet by mouth at bedtime 90 tablet 2 05/03/2020 08/10/2021 verapamil SR 24hr (VERELAN) 120 MG capsule Take 120 mg by mouth at bedtime 11/10/2019 05/21/2022 Wheat Dextrin (BENEFIBER PO) Take 1 packet by mouth once daily 05/21/2022 documented as of this encounter Plan of Treatment Not on file documented as of this encounter Goals Goal Patient Goal Type Associated Problems Recent Progress Patient-Stated? 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 8:09 AM HISTOLOGY AIDE) No Alisa Jaramillo HEMOGLOBIN A1C < 7.0 Result Component 5.4( 12:00 AM CDT) No Alisa Jarmaillo documented as of this encounter Visit Diagnoses Not on filedocumented in this encounter Care Teams Central Office Repairer Relationship Specialty Start [place] [address] [facility] [address] [place], [place] [address] PCP - General Internal Medicine 03/31/18 05/30/22 Brooke Haynes APRN-REPAIRER FINISHED METAL [address] [facility] [address] [place] [address] PCP - Attributed-MSSP 10/17/20 09/15/21 Etienne Florez MD Orthopedic Surgery 12/09/14 [place] [address] [facility] [address] [place] [address] Oncology 09/15/17 [place] [address] [facility] [address] [place] [address] Neurology 06/26/18 [place] [address] [facility] [address] [place] [address] Cardiovascular Disease 06/26/18 [place] [address] [facility] [address] [place] [id number] Pulmonary Disease 06/26/18 Yuliya Ibarra MD [address] [facility] [address] [place] [address] Endocrinology 06/26/18 Phuong Callejas DPM [address] [place] [address] Podiatry 06/26/18 Sy Barrientos MD [address] [facility] [place] [address] Ophthalmology 06/26/18 [place] [address] [address] Pulmonary Disease 06/26/18 Rico Gasca MD [address] [facility] [address] [place] [address] Urology 06/26/18 Elle Landaverde MD [address] [facility] [address] [place] [address] Vascular Surgery 06/26/18 Kirk Truong MD [address] [facility] [address] [place] [address] Gastroenterology 06/26/18 [place] [address] [place] [address] General Surgery 06/26/18 [place] [address] [place], [place] [address] Pulmonary Disease 11/10/20 documented as of this encounter
--- OUTSIDE RECORDS SUMMARY | 2024-05-26 12:34 | XMS_ITS | Encounter Summary ---
Author Organization [facility] Address [address] [facility] [place] [address] Care Team Providers Care Obiee Report Developer Name Role Phone Etienne Florez MD Unavailable [phone] Enrique Gonzalez MD Unavailable [phone] Theresa Camargo MD Primary Care Provider Nelson Ross MD Unavailable Laz Valencia MD Unavailable Russell Moran MD Unavailable Yuliya Ibarra MD Unavailable Phuong Callejas DPM Unavailable [phone] Sy Barrientos MD Unavailable [phone] Russell Moran MD Unavailable [phone] Rico Gasca MD Unavailable Elle Landaverde MD Unavailable Kirk Truong MD Unavailable [phone] Shira Love DO Unavailable [phone] Sara Schultz MD Unavailable [phone] Hussain Ray MD Unavailable [phone] Enrique Gonzalez MD Unavailable [phone] Reason for Visit * Reason Onset Date Comments Question 03/20/2022 Encounter Details Date Type Department Care Team (Late st Contact Info) Description 03/20/2022 Telephone [facility] Cancer Care [address] [facility] [address] [place] [address] [place] [address] [facility] [address] [place] [address] Question Social History Tobacco Use [...] encounter Miscellaneous Notes * Telephone Encounter - Ruchi Roe - 03/20/2022 3:44 PM CDT Ange needs to talk to nurse again about mom. Getting a referral to a dr in [place]. Dr is still saying they haven't received it. Ange wants to discuss with nurse on what is happening with the fax. They are looking for something in particular. Dr lucio said our nurse could call office. Please call Ange so she can explain the circumstances. documented in this encounter Plan of Treatment Not on file documented as of this encounter Goals Goal Patient Goal Type Associated Problems Recent Progress Patient-Stated? 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 8:09 AM EIGHT ARM OPERATOR) No Alisa Jaramillo HEMOGLOBIN A1C < 7.0 Result Component 5.4( 12:00 AM CDT) No Alisa Jaramillo documented as of this encounter Visit Diagnoses Not on filedocumented in this encounter Care Teams Obiee Report Developer Relationship Specialty Start [place] [address] [facility] [address] [place] [address] PCP - General Internal Medicine 03/31/18 05/30/22 [place] [address] [address] PCP - Attributed-MSS 11/16/21 10/03/22 Etienne Florez MD Orthopedic Surgery 12/09/14 [place] [address] [facility] 100 [place] [address] Oncology 09/15/17 [place] [address] [facility] 100 [place] [address] Neurology 06/26/18 [place] [address] [facility] [address] [place] [address] Cardiovascular Disease 06/26/18 [place] [address] [id number] Pulmonary Disease 06/26/18 Yuliya Ibarra MD [address] [facility] [address] [place] [address] Endocrinology 06/26/18 Phuong Callejas DPM [address] [place], [place] [address] Podiatry 06/26/18 Sy Barrientos MD [address] [place] [address] [place] [address] Ophthalmology 06/26/18 [place] [address] [place] [id number] Pulmonary Disease 06/26/18 Rico Gasca MD [address] [facility] [address] [place] [address] Urology 06/26/18 Elle Landaverde MD [address] [facility] [address] [place] [address] Vascular Surgery 06/26/18 Kirk Truong MD [address] [facility] [address] [place] [address] Gastroenterology 06/26/18 [place] [address] [place] [address] General Surgery 06/26/18 [place] [address] [facility] [address] [place] [address] Pulmonary Disease 11/10/20 Hussain Ray MD [address] [facility] [address] [place] [address] Urology 07/11/21 documented as of this encounter
--- OUTSIDE RECORDS SUMMARY | 2024-05-26 12:34 | XMS_ITS | Encounter Summary ---
Author Organization [facility] Address [address] [facility] [place] [address] Care Team Providers Care Director Occupational Name Role Phone Etienne Florez MD Unavailable Enrique Gonzalez MD Unavailable [phone] Theresa Cmaargo MD Primary Care Provider Nelson Ross MD Unavailable Laz Valencia MD Unavailable Russell Moran MD Unavailable Yuliya Ibarra MD Unavailable [phone] Phuong Callejas DPM Unavailable Sy Barrientos MD Unavailable Russell Moran MD Unavailable [phone] Rico Gasca MD Unavailable [phone] Elle Landaverde MD Unavailable [phone] Kirk Truong MD Unavailable [phone] Shira Love DO Unavailable [phone] Sara Schultz MD Unavailable [phone] Kasie Haynesecroseann [place]-SALESPERSON [employer] Unavailable [phone] Encounter Details Date Type Department Care Team (Latest Contact Info) Description 05/15/2021 Travel Social History Tobacco Use Types Packs/Day Years Used Date Smoking Tobacco: Never Smokeless Tobacco: Never Alcohol Use Standard Drinks/Week Comments No 0 (1 standard drink = 0.6 oz pur e alcohol) Sex and Gender Information Value Date Recorded Sex Assigned at Not on file Gender Identity Not on file Sexual Orientation Not on file COVID-19 Exposure Response Date Recorded In the last month, have you been in contact with someone who was confirmed or suspected to have Coronavirus / COVID-19? No / Unsure 05/15/2021 12:45 PM COBOL PROGRAMMER documented as of this encounter Functional Status [...] < 140/90 Blood Pressure 127/52(2022 8:09 AM COBOL PROGRAMMER) No Alisa Jaramillo HEMOGLOBIN A1C < 7.0 Result Component 5.4( 12:00 AM CDT) No Alisa Jaramillo documented as of this encounter Visit Diagnoses Not on filedocumented in this encounter Care Teams Director Occupational Relationship Specialty Start [place] [address] [address] PCP - General Internal Medicine 03/31/18 05/30/22 Brooke Haynes APRN-SALESPERSON [employer] [address] [facility] [address] [place] [address] PCP - Attributed-MSSP 10/17/20 09/15/21 Etienne Florez MD Orthopedic Surgery 12/09/14 [place] [address] [facility] [address] [place] [address] Oncology 09/15/17 [place] [address] [facility] [address] [place] [address] Neurology 06/26/18 [place] [address] [facility] 204 [place] [address] Cardiovascular Disease 06/26/18 [place] [address] [id number] Pulmonary Disease 06/26/18 Yuliya Ibarra MD [address] [facility] [address] [place] [address] Endocrinology 06/26/18 Phuong Callejas DPM [address] [place], [place] [address] Podiatry 06/26/18 Sy Barrientos MD [address] [place] [address] [place] [address] Ophthalmology 06/26/18 [place] [address] [address] Pulmonary Disease 06/26/18 Rico Gasca MD [address] [address] Urology 06/26/18 Elle Landaverde MD [address] [address] Vascular Surgery 06/26/18 Kirk Truong MD [address] [address] Gastroenterology 06/26/18 [place] [address] [facility] [address] [place] [address] General Surgery 06/26/18 [place] [address] [facility] [address] [place] [address] Pulmonary Disease 11/10/20 documented as of this encounter
--- OUTSIDE RECORDS SUMMARY | 2024-05-26 12:34 | XMS_ITS | Encounter Summary ---
Author Organization [facility] Address [address] [facility] [place] [address] Care Team Providers Care Hazardous Waste Material Technician Name Role Phone Etienne Florez MD Unavailable Enrique Gonzalez MD Unavailable [phone] Theresa Camargo MD Primary Care Provider [phone] Nelson Ross MD Unavailable Laz Valencia MD Unavailable Russell Moran MD Unavailable [phone] Yuliya Ibarra MD Unavailable [phone] Phuong Callejas DPM Unavailable [phone] Sy Barrientos MD Unavailable [phone] Russell Moran MD Unavailable [phone] Rico Gasca MD Unavailable Elle Landaverde MD Unavailable Kirk Truong MD Unavailable [phone] Shira Love DO Unavailable [phone] Sara Schultz MD Unavailable [phone] Hussain Ray MD Unavailable [phone] Enrique Gonzalez MD Unavailable [phone] Reason for Visit * Reason Onset Date Comments Referral 03/19/2022 Encounter Details Date Type Department Care Team (Late st Contact Info) Description 03/19/2022 Telephone [facility] Cancer Care [address] [facility] [address] [place] [address] [place] [address] [facility] 100 [place] [address] Referral Social History Tobacco Use Types Packs/Day Years [...] encounter Miscellaneous Notes * Telephone Encounter - Sylwia Key RN - 03/19/2022 4:34 PM CDT I called and spoke with Ange and informed her that the referral information was faxed over on 02/22/2022. I informed her that I would send it again. I also asked that she double check with the doctors office that they are not requesting an insurance referral as this would need to come from her pcp. Ange expressed understanding. * Telephone Encounter - Marianela Nettles - 03/19/2022 4:15 PM CDT Ange called, her mother Perla Leon 37 can no longer handle the trip here she is in the senior living. Would like you to send a RFL to DR Nolen he is across the street from the assisted .The Fax number is [phone] documented in this encounter Plan of Treatment Not on file documented as of this encounter Goals Goal Patient Goal Type Associated Problems Recent Progress Patient-Stated? 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 8:09 AM SUPERVISOR ELEMENTARY EDUCATION) No Alisa Jaramillo HEMOGLOBIN A1C < 7.0 Result Component 5.4( 12:00 AM CDT) No Alisa Jaramillo documented as of this encounter Visit Diagnoses Not on filedocumented in this encounter Care Teams Hazardous Waste Material Technician Relationship Specialty Start [place] [address] [place] [address] PCP - General Internal Medicine 03/31/18 05/30/22 [place] [address] [address] [place] [address] PCP - Attributed-MSSP 11/16/21 10/03/22 Etienne Florez MD Orthopedic Surgery 12/09/14 [place] [address] [address] Oncology 09/15/17 [place] [address] [address] Neurology 06/26/18 [place] [address] [facility] [address] [place] [address] Cardiovascular Disease 06/26/18 [place] [address] [id number] Pulmonary Disease 06/26/18 Yuliya Ibarra MD [address] [facility] [address] [place] [address] Endocrinology 06/26/18 Phuong Callejas DPM [address] [place] [address] Podiatry 06/26/18 Sy Barrientos MD [address] [place] [address] [place] [address] Ophthalmology 06/26/18 [place] [address] [address] Pulmonary Disease 06/26/18 Rico Gasca MD [address] [facility] [address] [place] [address] Urology 06/26/18 Elle Landaverde MD [address] [place] [address] Vascular Surgery 06/26/18 Kirk Truong MD [address] [place] [address] Gastroenterology 06/26/18 [place] [address] [facility] [address] [place] [address] General Surgery 06/26/18 [place] [address] [facility] [address] [place] [address] Pulmonary Disease 11/10/20 Hussain Ray MD 6812 [facility] [address] [place] [address] Urology 07/11/21 documented as of this encounter
--- OUTSIDE RECORDS SUMMARY | 2024-05-26 12:34 | XMS_ITS | Encounter Summary ---
Author Organization [facility] Address [address] [facility] [place] [address] Care Team Providers Care Supervisor Publications Name Role Phone Etienne Florez MD Unavailable [phone] Enrique Gonzalez MD Unavailable [phone] Theresa Camargo MD Primary Care Provider Nelson Ross MD Unavailable Laz Valencia MD Unavailable Russell Moran MD Unavailable Yuliya Ibarra MD Unavailable Phuong Callejas DPM Unavailable Sy Barrientos MD Unavailable [phone] Russell Moran MD Unavailable Rico Gasca MD Unavailable [phone] Elle Landavedre MD Unavailable Kirk Truong MD Unavailable [phone] Shira Love DO Unavailable [phone] Sara Schultz MD Unavailable [phone] Kasie Haynesecroseann AGUILARN-METAL GRINDER Unavailable [phone] Hussain Ray MD Unavailable [phone] Reason for Visit * Oncology Prior Authorization (Routine) - Closed Specialty Diagnoses / Procedures Referred By Contac t Referred To Contact Diagnoses Malignant neoplasm of upper-outer quadrant of left breast in female, estrogen receptor positive (HCC) Osteopenia of multiple sites Aromatase inhibitor use Procedures ONCOLOGY MEDICATION AUTH COMMUNICATION Enrique Gonzalez MD [address] [place] [phone] [facility] [address] [place] [id number] Referral ID Status Reason Start Date Expiration Date Visits Re quested Visits Authorized [id number] Closed 10/29/2017 05/18/2023 1 99 Encounter Details Date Type Department Care Team (Latest Contact Info) Description 08/10/2021 10:30 AM CDT - 08/10/2021 11:59 PM CDT Hospital Encounter Infusion Services at [address] [address] Enrique Gonzalez MD [address] [place] [address] Discharge Disposition: Home or Self Care [...] on file documented as of this encounter Last Filed Vital Signs Vital Sign Reading Time Taken Comments Blood Pressure 120/46 08/10/2021 10:46 AM CDT Pulse 74 08/10/2021 10:46 AM CDT Temperature 36.6 ??C (97.9 ??F) 08/10/2021 10:46 AM C DT Respiratory Rate 20 08/10/2021 10:46 AM CDT Oxygen Saturation 98% 08/10/2021 10:46 AM CDT Inhaled Oxygen Concentration - - Weight - - Height - - Body Mass Index - - documented in this encounter Functional Status Functional Status Response [...] Anxiety 05/30/2022 amitriptyline (ELAVIL) 25 MG tablet Take 2 (two) tablets by mouth at bedtime 180 tablet 3 08/13/2021 05/21/2022 amitriptyline (ELAVIL) 25 MG tablet TAKE 2 TABLETS BY MOUTH EVERY DAY AT BEDTIME 180 tablet 3 02/19/2021 08/13/2021 anastrozole (ARIMIDEX) 1 MG tablet TAKE 1 TABLET DAILY FOR 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 90 tablet 3 06/18/2021 05/21/2022 apixaban (ELIQUIS) 5 MG tablet Take 1 [...] twice a week on Friday and 05/30/2022 Other Order to admit to [facility] for local intermodal truck driver care 1 Each 08/06/2021 05/21/2022 polyethylene glycol 3350 (Miralax) 17 g packet Take 17 (seventeen) g by mouth every 2 days 04/19/2021 05/30/2022 potassium chloride ER (KLOR-CON) 20 MEQ tablet TAKE 1 TABLET BY MOUTH FOUR TIMES A DAY 360 tablet 2 12/01/2020 05/21/2022 rosuvastatin (CRESTOR) 10 MG tablet TAKE 1 TABLET BY MOUTH EVERYDAY AT BEDTIME 90 tablet 2 08/10/2021 05/21/2022 verapamil SR 24hr (VERELAN) 120 MG capsule Take 120 mg by mouth at bedtime 11/10/2019 05/21/2022 Wheat Dextrin (BENEFIBER PO) Take 1 packet by mouth once daily 05/21/2022 documented as of this encounter Progress Notes * Roxane Zarco RN - 08/10/2021 12:10 PM CDT Perla Leon 1940 08/10/2021 Patient completed scheduled Prolia Injection at [facility]. Please call with any questions at [phone]. BP 120/46 Pulse 74 Temp 97.9 ??F Resp 20 SpO2 98% Medications given on 08/10/2021 MEDICATIONS FOR CURRENT ENCOUNTER: ?? SCHEDULED MEDICATIONS: ?? [COMPLETED] denosumab (Prolia) SC injection SOSY 60 mg, Subcutaneous, Once ?? CONTINUOUS MEDICATIONS: ?? No current facility-administered medications for this encounter. ?? PRN MEDICATIONS: ?? No current facility-administered medications for this encounter. * Eneida Tay RN - 08/10/2021 11:39 AM CDT Perla Leon was seen at [facility] on 08/10/2021 for a Prolia injection. Pt's most recent calcium level=11.1 (labwork from [facility] on 07/28/21, scanned into media) Patient tolerated treatment well without incident. Please call [phone] for any questions or concerns. Patient Vitals for the past 6 hrs: Temp Pulse Resp BP 08/10/21 1046 97.9 ??F 74 20 120/46 MEDICATIONS FOR CURRENT ENCOUNTER: ?? SCHEDULED MEDICATIONS: ?? [COMPLETED] denosumab (Prolia) SC injection SOSY 60 mg, Subcutaneous, Once documented in this encounter Plan of Treatment Not on file documented as of this encounter Goals Goal Patient Goal Type Associated Problems Recent Progress Patient-Stated? 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 8:09 AM EXECUTOR OF ESTATE) No Alisa Jaramillo HEMOGLOBIN A1C < 7.0 Result Component 5.4( 12:00 AM CDT) No Alisa Jaramillo documented as of this encounter Visit Diagnoses Diagnosis Osteopenia of multiple sites- Primary Malignant neoplasm of upper-outer quadrant of left breast in female, estrogen receptor positive (HCC) documented in this encounter Administered Medications Inactive Administered Medications - up to 3 most recent administrations Medication Order MAR Action Action Date Dose Rate Site denosumab (Prolia) SC injection SOSY 60 mg 60 mg, Subcutaneous, ONCE, 1 dose, On Fri08/10/21 at 1045 $ Given 08/10/2021 10:49 AM CDT 60 mg Right Arm documented in this encounter Care Teams Supervisor Publications Relationship Specialty [place] [address] [place] [address] PCP - General Internal Medicine 03/31/18 05/30/22 Brooke Haynes APRN-METAL GRINDER [address] [place] [address] PCP - Attributed-MSSP 10/17/20 09/15/21 Etienne Florez MD Orthopedic Surgery 12/09/14 [place] [address] [facility] [address] [place] [address] Oncology 09/15/17 [place] [address] [facility] 100 [place] [address] Neurology 06/26/18 Laz [place] [address] [place] [address] [address] [place] [address] Cardiovascular Disease 06/26/18 Russell Moran MD [address] [place] [address] Pulmonary Disease 06/26/18 Yuliya Ibarra MD [address] [facility] [address] [place] [address] Endocrinology 06/26/18 Phuong Callejas DPM [address] [place], [place] [address] Podiatry 06/26/18 Sy Barrientos MD [address] [place] [address] [place] [address] Ophthalmology 06/26/18 Russell Moran MD [address] [place] [address] Pulmonary Disease 06/26/18 Rico Gasca MD [address] [place] [address] Urology 06/26/18 Elle Landaverde MD [address] [place] [address] Vascular Surgery 06/26/18 Kirk Truong MD [address] [place] [address] Gastroenterology 06/26/18 [place] [address] [facility] [address] [place] [address] General Surgery 06/26/18 [place] [address] [facility] [address] [place] [address] Pulmonary Disease 11/10/20 Hussain Ray MD [address] [facility] [address] [place] [address] Urology 07/11/21 documented as of this encounter
--- OUTSIDE RECORDS SUMMARY | 2024-05-26 12:34 | XMS_ITS | Encounter Summary ---
Author Organization [facility] Address [address] [place] [address] Care Team Providers Care Farebox Repairer Name Role Phone Etienne Florez MD Unavailable Enrique Gonzalez MD Unavailable [phone] Theresa Camargo MD Primary Care Provider Nelson Ross MD Unavailable Laz Valencia MD Unavailable Russell Moran MD Unavailable Yuliya Ibarra MD Unavailable [phone] Phuong Callejas DPM Unavailable [phone] Sy Barrientos MD Unavailable [phone] Russell Moran MD Unavailable [phone] Rico Gasca MD Unavailable Elle Landaverde MD Unavailable Kirk Truong MD Unavailable [phone] Shira Love DO Unavailable Sara Schultz MD Unavailable [phone] Hussain Ray MD Unavailable [phone] Enrique Gonzalez MD Unavailable [phone] Encounter Details Date Type Department Care Team (Late st Contact Info) Description 02/28/2022 Orders Only [facility] [address] [facility] [address] [place] [address] [place] [address] [facility] [address] [place] [address] Social History Tobacco Use Types [...] < 140/90 Blood Pressure 127/52(2022 8:09 AM GAS DESULFURIZER) No Alisa Jaramillo HEMOGLOBIN A1C < 7.0 Result Component 5.4( 12:00 AM CDT) No Alisa Jaramillo documented as of this encounter Visit Diagnoses Not on filedocumented in this encounter Care Teams Farebox Repairer Relationship Specialty [place] [address] [facility] [address] [place] [address] PCP - General Internal Medicine 03/31/18 05/30/22 [place] [address] [facility] [address] [place] [address] PCP - Attributed-MSSP 11/16/21 10/03/22 Etienne Florez MD Orthopedic Surgery 12/09/14 [place] [address] [facility] [address] [place] [address] Oncology 09/15/17 [place] [address] [facility] [address] [place] [address] Neurology 06/26/18 [place] [address] [facility] [address] [place] [address] Cardiovascular Disease 06/26/18 [place] [address] [address] Pulmonary Disease 06/26/18 Yuliya Ibarra MD [address] [facility] [address] [place] [address] Endocrinology 06/26/18 Phuong Callejas DPM [address] [place] [address] Podiatry 06/26/18 Sy Barrientos MD [address] [place] [address] [place] [address] Ophthalmology 06/26/18 [place] [address] [address] Pulmonary Disease 06/26/18 Rico Gasca MD [address] [address] Urology 06/26/18 Elle Landaverde MD [address] [address] Vascular Surgery 06/26/18 Kirk Truong MD [address] [address] Gastroenterology 06/26/18 [place] [address] [facility] [address] [place] [address] General Surgery 06/26/18 [place] [address] [facility] [address] [place] [address] Pulmonary Disease 11/10/20 Hussain Ray MD [address] [facility] [address] [place] [address] Urology 07/11/21 documented as of this encounter
--- OUTSIDE RECORDS SUMMARY | 2024-05-26 12:34 | XMS_ITS | Encounter Summary ---
Author Organization [facility] Address [address] [facility] [place] [address] Care Team Providers Care Communications Equipment Operator Name Role Phone Etienne Florez MD Unavailable [phone] Enrique Gonzalez MD Unavailable [phone] Theresa Camargo MD Primary Care Provider Nelson Ross MD Unavailable [phone] Laz Valencia MD Unavailable Russell Moran MD Unavailable Yuliya Ibarra MD Unavailable [phone] Phuong Callejas DPM Unavailable Sy Barrientos MD Unavailable [phone] Russell Moran MD Unavailable Rico Gasca MD Unavailable Elle Landaverde MD Unavailable [phone] Kirk Truong MD Unavailable [phone] Shira Love DO Unavailable [phone] Sara Schultz MD Unavailable [phone] [facility] Unavailable [phone] Reason for Visit * Reason Onset Date Comments Question 06/05/2021 Encounter Details Date Type Department Care Team (Late st Contact Info) Description 06/05/2021 Telephone [facility] - Family Medicine [address] [facility] [address] [place] [address] [place] [address] [facility] [address] [place] [address] Question Social History Tobacco Use Types Packs/Day [...] COVID-19? No / Unsure 05/15/2021 12:45 PM RN NEUROLOGY documented as of this encounter Functional Status [...] encounter Miscellaneous Notes * Telephone Encounter - Aleisha Malhotra MA - 06/11/2021 1:54 PM RN NEUROLOGY Lm to inform Brandi to fax urine results NEUROLOGY * Telephone Encounter - Theresa Camargo MD - 06/08/2021 10:22 AM CST Please make sure they fax that result to me including the sensitivity to help make a decision on the correct antibiotic choice. I will send an antibiotic for now, but it is only a guess it would be better if I could see that sensitivity report from that culture. Give her the fax number make sure wepull that off before the end of the day. NEUROLOGY * Telephone Encounter - Wanda Castro - 06/08/2021 10:17 AM CST Sejal with calling stating pt urine culture came back with E. Coli Requesting abx sent to NEUROLOGY * Telephone Encounter - Bonny Ballesteros APRN-CNP - 06/05/2021 2:54 PM RN NEUROLOGY No I do not to a put in for prophylactic antibiotics. ??I would rather check the urine and if she keeps having these will need to check an ultrasound. ??I think there is still order for UA and there.??If she is not able to get the lab to get a UA. ??Let me know and I will figure out another plan Nurse notified UA collected today NEUROLOGY * Telephone Encounter - Wanda Castro - 06/05/2021 1:07 PM CST Nurse with HH wondering will PCP consider prophylactic monthly antibiotic to prevent frequent UTIs. Pt has a chronic catheter and is susceptible to bladder infections NEUROLOGY documented in this encounter Plan of Treatment Not on file documented as of this encounter Goals Goal Patient Goal Type Associated Problems Recent Progress Patient-Stated? 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 8:09 AM RN NEUROLOGY) No Alisa Jaramillo HEMOGLOBIN A1C < 7.0 Result Component 5.4( 12:00 AM CDT) No Alisa Jaramillo documented as of this encounter Visit Diagnoses Not on filedocumented in this encounter Care Teams Communications Equipment Operator Relationship Specialty [place] [address] [place] [address] PCP - General Internal Medicine 03/31/18 05/30/22 Brooke Haynes, HEALTHCARE APPLICATIONS ANALYST-LEAD SYSTEMS ARCHITECT [address] [place] [address] PCP - Attributed-MSSP 10/17/20 09/15/21 Etienne Florez MD Orthopedic Surgery 12/09/14 [place] [address] [place] [address] Oncology 09/15/17 [place] [address] [address] [address] [place] [address] Neurology 06/26/18 [place] [address] [facility] [address] [place] [address] Cardiovascular Disease 06/26/18 [place] [address] [facility] [address] [place] [address] Pulmonary Disease 06/26/18 Yuliya Ibarra MD [address] [facility] [address] [place] [address] Endocrinology 06/26/18 Phuong Callejas DPM [address] [place], [place] [address] Podiatry 06/26/18 Sy Barrientos MD [facility] [place] [address] Ophthalmology 06/26/18 [place] [address] [address] Pulmonary Disease 06/26/18 Rico Gasca MD [address] [facility] [address] [place] [address] Urology 06/26/18 Elle Landaverde MD [address] [facility] [address] [place] [address] Vascular Surgery 06/26/18 Kirk Truong MD [address] [facility] [address] [place] [address] Gastroenterology 06/26/18 [place] [address] [facility] [address] [place] [address] General Surgery 06/26/18 [place] [address] [place] [address] Pulmonary Disease 11/10/20 documented as of this encounter
--- OUTSIDE RECORDS SUMMARY | 2024-05-26 12:34 | XMS_ITS | Encounter Summary ---
Author Organization [facility] Address [address] [place] [address] Care Team Providers Care Cattle Farmer Name Role Phone Etienne Florez MD Unavailable [phone] Enrique Gonzalez MD Unavailable [phone] Theresa Camargo MD Primary Care Provider Nelson Ross MD Unavailable [phone] Laz Valencia MD Unavailable Russell Moran MD Unavailable [phone] Yuliya Ibarra MD Unavailable [phone] Phuong Callejas DPM Unavailable [phone] Sy Barrientos MD Unavailable Russell Moran MD Unavailable [phone] Rico Gsaca MD Unavailable Elle Landaverde MD Unavailable Kirk Truong MD Unavailable [phone] Shira Love DO Unavailable [phone] Sara Schultz MD Unavailable [phone] Brooke Haynes Unavailable [phone] Reason for Visit * Reason Onset Date Comments MEDICATION REFILL 06/11/2021 Encounter Details Date Type Department Care Team (Late st Contact Info) Description 06/11/2021 Refill [facility] Medicine [address] [address] Bonny Ballesteros APRN-CNP [address] [facility] [address] [place] [address] MEDICATION REFILL Social History Tobacco Use Types Packs/Day Years [...] COVID-19? No / Unsure 05/15/2021 12:45 PM RELIEF DOCKING MASTER documented as of this encounter Functional Status [...] encounter Miscellaneous Notes * Telephone Encounter - Bonny Ballesteros APRN-CNP - 06/11/2021 11:59 AM RELIEF DOCKING MASTER See scanned UA EF DOCKING MASTER documented in this encounter Plan of Treatment Not on file documented as of this encounter Goals Goal Patient Goal Type Associated Problems Recent Progress Patient-Stated? 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 8:09 AM RELIEF DOCKING MASTER) No YeceniaAlisa marks HEMOGLOBIN A1C < 7.0 Result Component 5.4( 12:00 AM CDT) No Alisa Jaramillo documented as of this encounter Visit Diagnoses Not on filedocumented in this encounter Care Teams Cattle Farmer Relationship Specialty Start [place] [address] [facility] [address] [place] [address] PCP - General Internal Medicine 03/31/18 05/30/22 Brooke Haynes APRN-INSIDE BARREL POLISHER [address] [facility] [address] [place] [address] PCP - Attributed-MSSP 10/17/20 09/15/21 Etienne Florez MD Orthopedic Surgery 12/09/14 [place] [address] [facility] [address] [place] [address] Oncology 09/15/17 [place] [address] [facility] [address] [place] [address] Neurology 06/26/18 [place] [address] [facility] [address] [place] [address] Cardiovascular Disease 06/26/18 [place] [address] [id number] Pulmonary Disease 06/26/18 Yuliya Ibarra MD [address] [place] [address] Endocrinology 06/26/18 Phuong Callejas DPM [address] [place] [address] Podiatry 06/26/18 Sy Barrientos MD [address] [place] [address] [place] [address] Ophthalmology 06/26/18 [place] [address] [address] Pulmonary Disease 06/26/18 Rico Gasca MD [address] [place] [address] Urology 06/26/18 Elle Landaverde MD [address] [facility] [address] [place] [address] Vascular Surgery 06/26/18 Kirk Truong MD [address] [address] Gastroenterology 06/26/18 [place] [address] [place] [address] [place] [address] General Surgery 06/26/18 [place] [address] [place] [address] Pulmonary Disease 11/10/20 documented as of this encounter
--- OUTSIDE RECORDS SUMMARY | 2024-05-26 12:34 | XMS_ITS | Encounter Summary ---
Author Organization [facility] Address [address] [place] [address] Care Team Providers Care Sales Promotion Director Name Role Phone Etienne Florez MD Unavailable Enrique Gonzalez MD Unavailable [phone] Theresa Camargo MD Primary Care Provider Nelson Ross MD Unavailable [phone] Laz Valencia MD Unavailable Russell Moran MD Unavailable Yuliya Ibarra MD Unavailable Phuong Callejas DPM Unavailable Sy Barrientos MD Unavailable Russell Moran MD Unavailable Rico Gasca MD Unavailable [phone] Elle Landaverde MD Unavailable Kirk Truong MD Unavailable [phone] Shira Love DO Unavailable [phone] Sara Schultz MD Unavailable [phone] Hussain Ray MD Unavailable [phone] Enrique Gonzalez MD Unavailable [phone] Reason for Visit * Reason Onset Date Comments Appointment 01/22/2022 Encounter Details Date Type Department Care Team (Late st Contact Info) Description 01/22/2022 Telephone [facility] - Family Medicine [address] [facility] [address] [place] [address] [place] [address] [facility] [address] [place] [address] Appointment Social History Tobacco Use Types Packs/Day Years [...] encounter Miscellaneous Notes * Telephone Encounter - Alice Jewell - 01/22/2022 3:25 PM CDT Attempted to contact patient to schedule an appointment for her Annual Medicare Wellness Visit. Wasinformed that I had the wrong number. Last Annual Medicare Wellness Visit was 06/09/2020 with LOTTIE Barry. Patient currently has no appointment schedule for 2021 documented in this encounter Plan of Treatment Not on file documented as of this encounter Goals Goal Patient Goal Type Associated Problems Recent Progress Patient-Stated? 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 8:09 AM SIGN BUILDER SUPERVISOR) No Jared Jaramilloa HEMOGLOBIN A1C < 7.0 Result Component 5.4( 12:00 AM CDT) No Alisa Jaramillo documented as of this encounter Visit Diagnoses Not on filedocumented in this encounter Care Teams Sales Promotion Director Relationship Specialty Start [place] [address] [facility] [address] [place], [place] [address] PCP - General Internal Medicine 03/31/18 05/30/22 [place] [address] [facility] 100 [place] [address] PCP - Attributed-MSSP 11/16/21 10/03/22 Etienne Florez MD Orthopedic Surgery 12/09/14 [place] [address] [facility] 100 [place] [address] Oncology 09/15/17 [place] [address] [facility] 100 [place] [address] Neurology 06/26/18 [place] [address] [facility] [address] [place] [address] Cardiovascular Disease 06/26/18 [place] [address] [place], [place] [address] Pulmonary Disease 06/26/18 Yuliya Ibarra MD [address] [place] [address] Endocrinology 06/26/18 Phuong Callejas DPM [address] [place] [address] Podiatry 06/26/18 Sy Barrientos MD [address] [place] [address] [place] [address] Ophthalmology 06/26/18 [place] [address] [id number] Pulmonary Disease 06/26/18 Rico Gsaca MD [address] [facility] [address] [place] [address] Urology 06/26/18 Elle Landaverde MD [address] [facility] [address] [place] [address] Vascular Surgery 06/26/18 Kirk Truong MD [address] [facility] [address] [place] [address] Gastroenterology 06/26/18 [place] [address] [place] [address] General Surgery 06/26/18 [place] [address] [facility] [address] [place] [address] Pulmonary Disease 11/10/20 Hussain Ray MD [address] [facility] [address] [facility] 200 [place] [address] Urology 07/11/21 documented as of this encounter
--- OUTSIDE RECORDS SUMMARY | 2024-05-26 12:34 | XMS_ITS | Encounter Summary ---
Author Organization [facility] Address [address] [facility] [place] [address] Care Team Providers Care Major Assembler Name Role Phone Etienne Florez MD Unavailable [phone] Enrique Gonzalez MD Unavailable [phone] Theresa Camargo MD Primary Care Provider [phone] Nelson Ross MD Unavailable Laz Valencia MD Unavailable Russell Moran MD Unavailable Yuliya Ibarra MD Unavailable [phone] Phuong Callejas DPM Unavailable [phone] Sy Barrientos MD Unavailable [phone] Russell Moran MD Unavailable [phone] Rico Gasca MD Unavailable Elle Landaverde MD Unavailable [phone] Kirk Truong MD Unavailable [phone] Shira Love DO Unavailable [phone] Sara Schultz MD Unavailable [phone] Brooke Haynes APRN-AML ANALYST Unavailable [phone] Hussain Ray MD Unavailable [phone] Encounter Details Date Type Department Care Team (Late st Contact Info) Description 08/07/2021 Orders Only [facility] Cancer Care [address] [facility]. [address] [place] [address] [place] [address] [facility] [address] [place] [address] Social History Tobacco Use Types [...] < 140/90 Blood Pressure 127/52(2022 8:09 AM PIT FURNACE MELTER) No Alisa Jaramillo HEMOGLOBIN A1C < 7.0 Result Component 5.4( 12:00 AM CDT) No Schildroth, Alisa documented as of this encounter Visit Diagnoses Not on filedocumented in this encounter Care Teams Major Assembler Relationship Specialty [place] [address] [facility] [address] [place] [address] PCP - General Internal Medicine 03/31/18 05/30/22 Brooke Haynes APRN-AML ANALYST [address] [facility] [address] [place] [address] PCP - Attributed-MSSP 10/17/20 09/15/21 Etienne Florez MD Orthopedic Surgery 12/09/14 [place] [address] [facility] [address] [place] [address] Oncology 09/15/17 [place] [address] [facility] 100 [place] [address] Neurology 06/26/18 [place] [address] [facility] [address] [place] [address] Cardiovascular Disease 06/26/18 [place] [address] [address] Pulmonary Disease 06/26/18 Yuliya Ibarra MD [address] [facility] [address] [place] [address] Endocrinology 06/26/18 Phuong Callejas DPM [address] [place] [address] Podiatry 06/26/18 Sy Barrientos MD [address] [place] [address] [place] [address] Ophthalmology 06/26/18 [place] [address] [address] Pulmonary Disease 06/26/18 Rico Gasca MD [address] [address] Urology 06/26/18 Elle Landaverde MD [address] [address] Vascular Surgery 06/26/18 Kirk Truong MD [address] [address] Gastroenterology 06/26/18 [place] [address] [facility] [address] [place] [address] General Surgery 06/26/18 [place] [address] [facility] [address] [place] [address] Pulmonary Disease 11/10/20 Hussain Ray MD [address] [facility] [address] [place] [address] Urology 07/11/21 documented as of this encounter
--- OUTSIDE RECORDS SUMMARY | 2024-05-26 12:34 | XMS_ITS | Encounter Summary ---
Author Organization [facility] Address [address] [facility] [place] [address] Care Team Providers Care Slasher Sawyer Name Role Phone Etienne Florez MD Unavailable Enrique Gonzalez MD Unavailable [phone] Theresa Camargo MD Primary Care Provider [phone] Nelson Ross MD Unavailable Laz Valencia MD Unavailable Russell Moran MD Unavailable Yuliya Ibarra MD Unavailable Phuong Callejas DPM Unavailable Sy Barrientos MD Unavailable [phone] Russell Moran MD Unavailable Rico Gasca MD Unavailable Elle Landaverde MD Unavailable Kirk Truong MD Unavailable [phone] Shira Love DO Unavailable [phone] Sara Schultz MD Unavailable [phone] Hussain Ray MD Unavailable [phone] Enrique Gonzalez MD Unavailable [phone] Reason for Visit * Reason Onset Date Comments Question 02/11/2022 Encounter Details Date Type Department Care Team (Late st Contact Info) Description 02/11/2022 Telephone [facility] Health Cancer Care [address] [facility] [address]. [address] [place] [address] [place] [address] [facility] [address] [place] [address] Question Social History Tobacco Use [...] * Telephone Encounter - Vaishnavi Wan - 02/11/2022 1:46 PM CDT Ange called to reschedule pt's appt that was missed on 02/01. She wants to know if the pt needs to come to her Infusion appt on 02/[address] Gonzalez? Please contact Ange. documented in this encounter Plan of Treatment Not on file documented as of this encounter Goals Goal Patient Goal Type Associated Problems Recent Progress Patient-Stated? 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 8:09 AM HUMAN RESOURCES BENEFITS ASSISTANT) No Jared Jaramilloa HEMOGLOBIN A1C < 7.0 Result Component 5.4( 12:00 AM CDT) No Alisa Jaramillo documented as of this encounter Visit Diagnoses Not on filedocumented in this encounter Care Teams Slasher Sawyer Relationship Specialty Start [place] [address] [facility] [address] [place], [place] [id number] PCP - General Internal Medicine 03/31/18 05/30/22 [place] [address] [address] PCP - Attributed-MSSP 11/16/21 10/03/22 Etienne Florez MD Orthopedic Surgery 12/09/14 [place] [address] [facility] [address] [place] [address] Oncology 09/15/17 [place] [address] [facility] [address] [place] [address] Neurology 06/26/18 [place] [address] [facility] [address] [place] [address] Cardiovascular Disease 06/26/18 [place] [address] [place] [address] [place] [address] Pulmonary Disease 06/26/18 Yuliya Ibarra MD [address] [place] [address] Endocrinology 06/26/18 Phuong Callejas DPM [address] [place] [address] Podiatry 06/26/18 Sy Barrientos MD [address] [place] [address] [place] [address] Ophthalmology 06/26/18 [place] [address] [id number] Pulmonary Disease 06/26/18 Rico Gasca MD [address] [facility] [address] [place] [address] Urology 06/26/18 Elle Landaverde MD [address] [place] [address] Vascular Surgery 06/26/18 Kirk Truong MD [address] [place] [address] Gastroenterology 06/26/18 [place] [address] [place] [address] General Surgery 06/26/18 [place] [address] [facility] [address] [place] [address] Pulmonary Disease 11/10/20 Hussain Ray MD [address] [facility] [address] [facility] 200 [place] [address] Urology 07/11/21 documented as of this encounter
--- OUTSIDE RECORDS SUMMARY | 2024-05-26 12:34 | XMS_ITS | Encounter Summary ---
Author Organization [facility] Address [address] [facility] [place] [address] Care Team Providers Care Manufacturing Weaver Name Role Phone Etienne Florez MD Unavailable Enrique Gonzalez MD Unavailable [phone] Theresa Camargo MD Primary Care Provider Nelson Ross MD Unavailable Laz Valencia MD Unavailable Russell Moran MD Unavailable Yuliya Ibarra MD Unavailable Phuong Callejas DPM Unavailable [phone] Sy Barrientos MD Unavailable [phone] Russell Moran MD Unavailable Rico Gasca MD Unavailable Elle Landaverde MD Unavailable [phone] Kirk Truong MD Unavailable [phone] Shira Love DO Unavailable [phone] Sara Schultz MD Unavailable [phone] Brooke Haynes APRN-HAND SANDER Unavailable [phone] Hussain Ray MD Unavailable [phone] Encounter Details Date Type Department Care Team (Late st Contact Info) Description 08/06/2021 Orders Only [facility] - Family Medicine [address] [facility] [address] [place] [address] [place] [address] [facility] [address] [place] [address] Social History Tobacco Use Types Packs/Day Years [...] < 140/90 Blood Pressure 127/52(2022 8:09 AM QUILL MACHINE TENDER) No Alisa Jaramillo HEMOGLOBIN A1C < 7.0 Result Component 5.4( 12:00 AM CDT) No Alisa Jaramillo documented as of this encounter Visit Diagnoses Not on filedocumented in this encounter Care Teams Manufacturing Weaver Relationship Specialty Start [place] [address] [facility] [address] [place] [address] PCP - General Internal Medicine 03/31/18 05/30/22 Brooke Haynes APRN-HAND SANDER [address] [facility] [address] [place] [address] PCP - Attributed-MSSP 10/17/20 09/15/21 Etienne Florez MD Orthopedic Surgery 12/09/14 [place] [address] [facility] 100 [place] [address] Oncology 09/15/17 [place] [address] [facility] 100 [place] [address] Neurology 06/26/18 [place] [address] [facility] [address] [place] [address] Cardiovascular Disease 06/26/18 [place] [address] [address] Pulmonary Disease 06/26/18 Yuliya Ibarra MD [address] [facility] [address] [place] [address] Endocrinology 06/26/18 Phuong Callejas DPM [address] [place] [address] Podiatry 06/26/18 Sy Barrientos MD [address] [place] [address] [place] [address] Ophthalmology 06/26/18 [place] [address] [address] Pulmonary Disease 06/26/18 Rico Gasca MD [address] [address] Urology 06/26/18 Elle Landaverde MD [address] [address] Vascular Surgery 06/26/18 Kirk Truong MD [address] [address] Gastroenterology 06/26/18 [place] [address] [facility] [address] [place] [address] General Surgery 06/26/18 [place] [address] [facility] [address] [place] [address] Pulmonary Disease 11/10/20 Hussain Ray MD [address] [facility] [address] [place] [address] Urology 07/11/21 documented as of this encounter
--- OUTSIDE RECORDS SUMMARY | 2024-05-26 12:34 | XMS_ITS | Encounter Summary ---
Author Organization [facility] Address [address] [facility] [place] [address] Care Team Providers Care Automobile Locator Name Role Phone Etienne Florez MD Unavailable [phone] Enrique Gonzalez MD Unavailable [phone] Theresa Camargo MD Primary Care Provider [phone] Nelson Ross MD Unavailable Laz Valencia MD Unavailable Russell Moran MD Unavailable Yuliya Ibarra MD Unavailable Phuong Callejas DPM Unavailable [phone] Sy Barrientos MD Unavailable [phone] Russell Moran MD Unavailable Rico Gasca MD Unavailable [phone] Elle Landaverde MD Unavailable [phone] Kirk Truong MD Unavailable [phone] Shira Love DO Unavailable Sara Schultz MD Unavailable [phone] Ivy Brooke [facility] Unavailable [phone] Hussain Ray MD Unavailable [phone] Reason for Visit * Reason Comments Refill Request Encounter Details Date Type Department Care Team (Late st Contact Info) Description 08/10/2021 Refill [facility] - Family Medicine [address] [facility] [address] [place] [address] [place] [address] [facility] [address] [place] [address] Refill Request Social History Tobacco Use Types Packs/Day Years [...] < 140/90 Blood Pressure 127/52(2022 8:09 AM CLINICAL BIOCHEMICAL GENETICIST) No Alisa Jaramillo HEMOGLOBIN A1C < 7.0 Result Component 5.4( 12:00 AM CDT) No Alisa Jaramillo documented as of this encounter Visit Diagnoses Not on filedocumented in this encounter Care Teams Automobile Locator Relationship Specialty [place] [address] [facility] [address] [place] [address] PCP - General Internal Medicine 03/31/18 05/30/22 Brooke Haynes, FAMILY PROGRAM SPECIALIST-PIT SLAGMAN [address] [facility] [address] [place] [address] PCP - Attributed-MSSP 10/17/20 09/15/21 Etienne Florez MD Orthopedic Surgery 12/09/14 [place] [address] [facility] 100 [place] [address] Oncology 09/15/17 [place] [address] [facility] 100 [place] [address] Neurology 06/26/18 [place] [address] [facility] 204 [place] [address] Cardiovascular Disease 06/26/18 [place] [address] [facility] [address] [place] [address] Pulmonary Disease 06/26/18 Yuliya Ibarra MD [address] [facility] [address] [place] [address] Endocrinology 06/26/18 Phuong Callejas DPM [address] [place] [address] Podiatry 06/26/18 Sy Barrientos MD [address] [facility] [place] [address] Ophthalmology 06/26/18 [place] [address] [address] Pulmonary Disease 06/26/18 Rico Gasca MD [address] [facility] [address] [place] [address] Urology 06/26/18 Elle Landaverde MD [address] [facility] [address] [place] [address] Vascular Surgery 06/26/18 Kirk Truong MD [address] [facility] [address] [place] [address] Gastroenterology 06/26/18 [place] [address] [place] [address] General Surgery 06/26/18 [place] [address] [facility] [address] [address] [place], [place] [address] Pulmonary Disease 11/10/20 Hussain Ray MD 6812 [facility] [address] [place], [place] [address] Urology 07/11/21 documented as of this encounter
--- OUTSIDE RECORDS SUMMARY | 2024-05-26 12:34 | XMS_ITS | Encounter Summary ---
Author Organization [facility] Address [address] [place] [address] Care Team Providers Care Broodmare Barn Groom Name Role Phone Etienne Florez MD Unavailable Enrique Gonzalez MD Unavailable [phone] Theresa Camargo MD Primary Care Provider [phone] Nelson Ross MD Unavailable Laz Valencia MD Unavailable Russell Moran MD Unavailable [phone] Yuliya Ibarra MD Unavailable [phone] Phuogn Callejas DPM Unavailable Sy Barrientos MD Unavailable Russell Moran MD Unavailable Rico Gasca MD Unavailable Elle Landaverde MD Unavailable [phone] Kirk Truong MD Unavailable [phone] Shira Love DO Unavailable [phone] Sara Schultz MD Unavailable [phone] Hussain Ray MD Unavailable [phone] Enrique Gonzalez MD Unavailable [phone] Reason for Visit * Reason Onset Date Comments Question 01/31/2022 Encounter Details Date Type Department Care Team (Late st Contact Info) Description 01/31/2022 Telephone [facility] Cancer Care [address] [facility] [address]. [address] [place] [address] [place] [address] [facility] [address] [place] [address] Question Social History Tobacco Use [...] < 140/90 Blood Pressure 127/52(2022 8:09 AM BUSINESS ANALYST) No Alisa Jaramillo HEMOGLOBIN A1C < 7.0 Result Component 5.4( 12:00 AM CDT) No Alisa Jaramillo documented as of this encounter Visit Diagnoses Not on filedocumented in this encounter Care Teams Broodmare Barn Groom Relationship Specialty Start [place] [address] [facility] [address] [place] [address] PCP - General Internal Medicine 03/31/18 05/30/22 [place] [address] [facility] [address] [place] [address] PCP - Attributed-MSSP 11/16/21 10/03/22 Etienne Florez MD Orthopedic Surgery 12/09/14 [place] [address] [facility] 100 [place] [address] Oncology 09/15/17 [place] [address] [facility] [address] [place] [address] Neurology 06/26/18 [place] [address] [facility] [address] [place] [address] Cardiovascular Disease 06/26/18 [place] [address] [facility] [address] [place] [address] Pulmonary Disease 06/26/18 Yuliya Ibarra MD [address] [facility] [address] [place] [address] Endocrinology 06/26/18 Phuong Callejas DPM [address] [place] [address] Podiatry 06/26/18 Sy Barrientos MD [address] [place] [address] Ophthalmology 06/26/18 [place] [address] [phone] Pulmonary Disease 06/26/18 Rico Gasca MD [address] [facility] [address] [place] [address] Urology 06/26/18 Elle Landaverde MD [address] [facility] [address] [place] [address] Vascular Surgery 06/26/18 Kirk Truong MD [address] [facility] [address] [place] [address] Gastroenterology 06/26/18 [place] [address] [place] [address] General Surgery 06/26/18 [place] [address] [place], [place] [address] Pulmonary Disease 11/10/20 Hussain Ray MD [address] [facility] [address] [place] [address] Urology 07/11/21 documented as of this encounter
--- OUTSIDE RECORDS SUMMARY | 2024-05-26 12:34 | XMS_ITS | Encounter Summary ---
Author Organization [facility] Address [address] [facility] [place] [address] Care Team Providers Care Hand Washer Name Role Phone Etienne Florez MD Unavailable Enrique Gonzalez MD Unavailable Theresa Camargo MD Primary Care Provider Nelson Ross MD Unavailable [phone] Laz Valencia MD Unavailable Russell Moran MD Unavailable Yuliya Ibarra MD Unavailable Phuong Callejas DPM Unavailable [phone] Sy Barrientos MD Unavailable Russell Moran MD Unavailable Rico Gasca MD Unavailable [phone] Elle Landaverde MD Unavailable Kirk Truong MD Unavailable [phone] Shira Love DO Unavailable [phone] Sara Schultz MD Unavailable [phone] Hussain Ray MD Unavailable [phone] Enrique Gonzalez MD Unavailable [phone] Rosa Abraham RN Unavailable [phone] Elizabeth Car MD Primary Care Provider + Theresa Camargo MD Primary Care Provider [phone] Rosa Abraham RN Unavailable [phone] Elizabeth Car MD Primary Care Provider + Encounter Details Date Type Department Care Team (Late st Contact Info) Description 02/05/2022 [facility] Outpatient Visit [facility] Cancer Care [address] [place] [address] [place] [address] [place] [address] Social History Tobacco Use Types Packs/Day [...] < 140/90 Blood Pressure 127/52(2022 8:09 AM PRODUCTION DESIGNER) No ClintAmberAlisa HEMOGLOBIN A1C < 7.0 Result Component 5.4( 12:00 AM CDT) No Alisa Jaramillo documented as of this encounter Visit Diagnoses Not on filedocumented in this encounter Additional Health Concerns Infection Onset Date Last Indicated Resolved Time CDIFF Under Investigation 05/19/2022 05/19/2022 9:06 PM PRODUCTION DESIGNER documented as of this encounter Care Teams Hand Washer Relationship Specialty Start [place] [address] [facility] [address] [place] [address] PCP - General Internal Medicine 03/31/18 05/30/22 [place] [address] [facility] [address] [place] [address] PCP - Attributed-MSSP 11/16/21 10/03/22 Elizabeth Car MD [address] [place] [address] [address] [place] [address] PCP - General Family Medicine 05/31/22 08/05/22 [place] [address] [facility] [address] [place] [address] PCP - General 08/06/22 08/14/22 Elizabeth Car MD 6812 [facility] [address] [place] [address] PCP - General Family Medicine 08/15/22 Etienne Florez MD Orthopedic Surgery 12/09/14 [place] [address] [address] Oncology 09/15/17 [place] [address] [address] Neurology 06/26/18 L[place] [address] [place] [address] [address] [place] [address] Cardiovascular Disease 06/26/18 Russell Moran MD [address] [place] [address] Pulmonary Disease 06/26/18 Yuliya Ibarra MD [address] [facility] [address] [place] [address] Endocrinology 06/26/18 Phuong Callejas DPM [address] [place] [address] Podiatry 06/26/18 Sy Barrientos MD [address] [place] [address] Ophthalmology 06/26/18 [place] [address] [place] [address] Pulmonary Disease 06/26/18 Rico Gasca MD [address] [place] [address] Urology 06/26/18 Elle aLndaverde MD [address] [place] [address] Vascular Surgery 06/26/18 Kirk Truong MD [address] [place] [address] Gastroenterology 06/26/18 [place] [address] [facility] [address] [place] [address] General Surgery 06/26/18 [place] [address] [facility] [address] [place] [address] Pulmonary Disease 11/10/20 Hussain Ray MD 6812 [facility] [address] [place] [address] Urology 07/11/21 Rosa Abraham RN Pullman Car RepairerFish Machine Feeder 05/31/22 05/31/22 Rosa Abraham RN Pullman Car RepairerFish Machine Feeder 08/15/22 08/15/22 documented as of this encounter
--- OUTSIDE RECORDS SUMMARY | 2024-05-26 12:34 | XMS_ITS | Encounter Summary ---
Author Organization [facility] Address [address] [facility] [place] [address] Care Team Providers Care Director Of Publications Name Role Phone Etienne Florez MD Unavailable Enrique Gonzalez MD Unavailable [phone] Theresa Camargo MD Primary Care Provider [phone] Nelson Ross MD Unavailable Laz Valencia MD Unavailable Russell Moran MD Unavailable [phone] Yuliya Ibarra MD Unavailable [phone] Phuong Callejas DPM Unavailable Sy Barrientos MD Unavailable Russell Moran MD Unavailable [phone] Rico Gasca MD Unavailable Elle Landaverde MD Unavailable Kirk Truong MD Unavailable [phone] Shira Love DO Unavailable [phone] Sara Schultz MD Unavailable [phone] Brooke Haynes APRN-TECHNOLOGY SALES REPRESENTATIVE Unavailable [phone] Rosa Abraham RN Unavailable [phone] Reason for Visit * Reason Onset Date Comments Home Health 07/02/2021 Encounter Details Date Type Department Care Team (Late st Contact Info) Description 07/02/2021 Telephone [facility] Medical [facility] - Family Medicine [address] [facility] [address] [address] [place] [address] [place] [address] [facility] [address] [place] [address] Home Health Social History Tobacco Use Types Packs/Day Years [...] * Telephone Encounter - Alice Jewell - 07/06/2021 9:26 AM WET MIX OPERATOR Urologist triage nurse stated she was going to contact Lilli with [facility] due to patient's UTI. Lilli stated she has not heard anything from the Urologist and patient needs to be treated for UTI. Lilli [phone] MIX OPERATOR * Telephone Encounter - Bonny Ballesteros APRN-CNP - 07/02/2021 2:19 PM WET MIX OPERATOR I spoke to nurse She needs to call the urologist for this now She keeps getting infections She sees Dr. Camacho Nurse notified MIX OPERATOR * Telephone Encounter - Lexus Starks - 07/02/2021 12:06 PM CST Lilli form AW contact office stating pt has just finished her antibiotic for a UTI and still showing signs of infection. Nurse stated her urine has a lot of sediment in it and it looks really milky with a thickness to it. Nurse requesting for some antibiotics for pt. MIX OPERATOR documented in this encounter Plan of Treatment Not on file documented as of this encounter Goals Goal Patient Goal Type Associated Problems Recent Progress Patient-Stated? 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 8:09 AM WET MIX OPERATOR) No Alisa Jaramillo HEMOGLOBIN A1C < 7.0 Result Component 5.4( 12:00 AM CDT) No Alisa Jaramillo documented as of this encounter Visit Diagnoses Not on filedocumented in this encounter Care Teams Director Of Publications Relationship Specialty [place] [address] [facility] [address] [place] [address] PCP - General Internal Medicine 03/31/18 05/30/22 Brooke Haynes APRN-CNP [address] [facility] [address] [place] [address] PCP - Attributed-MSSP 10/17/20 09/15/21 Etienne Florez MD Orthopedic Surgery 12/09/14 [place] [address] [address] Oncology 09/15/17 [place] [address] [address] Neurology 06/26/18 [place] [address] [facility] [address] [place] [address] Cardiovascular Disease 06/26/18 Russell Moran MD [address] [place] [address] Pulmonary Disease 06/26/18 Yuliya Ibarra MD [address] [facility] [address] [place] [address] Endocrinology 06/26/18 Phuong Callejas DPM [address] [place], [place] [id number] Podiatry 06/26/18 Sy Barrientos MD [address] [place] [address] [place] [address] Ophthalmology 06/26/18 [place] [address] [address] Pulmonary Disease 06/26/18 Rico Gasca MD [address] [facility] [address] [place] [address] Urology 06/26/18 Elle Landaverde MD [address] [facility] [address] [place] [address] Vascular Surgery 06/26/18 Kirk Truong MD [address] [facility] [address] [place] [address] Gastroenterology 06/26/18 [place] [address] [facility] [address] [place] [address] General Surgery 06/26/18 [place] [address] [facility] [address] [place], [place] [address] Pulmonary Disease 11/10/20 Rosa Abraham RN Quote ClerkPost Tensioning Ironworker Helper 06/19/21 07/05/21 documented as of this encounter
--- OUTSIDE RECORDS SUMMARY | 2024-05-26 12:34 | XMS_ITS | Encounter Summary ---
Author Organization [facility] Address [address] [facility] [place] [address] Care Team Providers Care Salary And Wage Administrator Name Role Phone Etienne Florez MD Unavailable Enrique Gonzalez MD Unavailable [phone] Theresa Camargo MD Primary Care Provider [phone] Nelson Ross MD Unavailable Laz Valencia MD Unavailable Russell Moran MD Unavailable [phone] Yuliya Ibarra MD Unavailable Phuong Callejas DPM Unavailable Sy Barrientos MD Unavailable [phone] Russell Moran MD Unavailable Rico Gasca MD Unavailable [phone] Elle Landaverde MD Unavailable Kirk Truong MD Unavailable [phone] Shira Love DO Unavailable [phone] Sara Schultz MD Unavailable [phone] Hussain Ray MD Unavailable [phone] Enrique Gonzalez MD Unavailable [phone] Reason for Visit * Reason Onset Date Comments Question 02/15/2022 Encounter Details Date Type Department Care Team (Late st Contact Info) Description 02/15/2022 Telephone [facility] Cancer Care [address] [facility] [address] [place] [address] [place] [address] [facility] [address] [place] [address] Question Social History Tobacco Use [...] encounter Miscellaneous Notes * Telephone Encounter - Harvey, Ruchi M - 02/15/2022 10:50 AM CDT Patient's daughter, Ange calling back to let you know that she found a doctor that is closer to her mom. She is unable to ride the distance to our office due to her health issues. Ange has previously talked to Marge. Please cancel the appointment on the 02/20/22 and call her to let her know it has been canceled. documented in this encounter Plan of Treatment Not on file documented as of this encounter Goals Goal Patient Goal Type Associated Problems Recent Progress Patient-Stated? 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 8:09 AM DYE HOUSE VAT WORKER) No Alisa Jaramillo HEMOGLOBIN A1C < 7.0 Result Component 5.4( 12:00 AM CDT) No Alisa Jaramillo documented as of this encounter Visit Diagnoses Not on filedocumented in this encounter Care Teams Salary And Wage Administrator Relationship Specialty Start [place] [address] [facility] [address] [place] [address] PCP - General Internal Medicine 03/31/18 05/30/22 [place] [address] [facility] [address] [place] [address] PCP - Attributed-[facility] 11/16/21 10/03/22 Etienne Florez MD Orthopedic Surgery 12/09/14 [place] [address] [facility] [address] [place] [address] Oncology 09/15/17 [place] [address] [facility] [address] [place] [address] Neurology 06/26/18 [place] [address] [facility] [address] [place] [address] Cardiovascular Disease 06/26/18 [place] [address] [address] Pulmonary Disease 06/26/18 Yuliya Ibarra MD [address] [facility] [address] [place] [address] Endocrinology 06/26/18 Phuong Callejas DPM [address] [place], [place] [address] Podiatry 06/26/18 Sy Barrientos MD [address] [place] [address] [place] [address] Ophthalmology 06/26/18 [place] [address] [place] [id number] Pulmonary Disease 06/26/18 Rico Gasca MD [address] [employer] [facility] [address] [place] [address] Urology 06/26/18 Elle Landaverde MD [address] [employer] [facility] [address] [place] [address] Vascular Surgery 06/26/18 Kirk Truong MD [address] [employer] [facility] [address] [place] [address] Gastroenterology 06/26/18 [place] [address] [place] [address] General Surgery 06/26/18 [place] [address] [facility] [address] [place] [address] Pulmonary Disease 11/10/20 Hussain Ray MD [address] [facility] [address] [facility] [address] [place] [address] Urology 07/11/21 documented as of this encounter
--- OUTSIDE RECORDS SUMMARY | 2024-05-26 12:34 | XMS_ITS | Encounter Summary ---
Author Organization [facility] Address [address] [facility] [place] [address] Care Team Providers Care Ent Nurse Name Role Phone Etienne Florez MD Unavailable Enrique Gonzalez MD Unavailable [phone] Theresa Camargo MD Primary Care Provider Nelson Ross MD Unavailable Laz Valencia MD Unavailable Russell Moran MD Unavailable Yuliya Ibarra MD Unavailable [phone] Phuong Callejas DPM Unavailable [phone] Sy Barrientos MD Unavailable Russell Moran MD Unavailable Rico Gasca MD Unavailable [phone] Elle Landaverde MD Unavailable Kirk Truong MD Unavailable [phone] Shira Love DO Unavailable [phone] Sara Schultz MD Unavailable [phone] Brooke Haynes CUPOLA TAPPER HELPER-LYE PEEL OPERATOR Unavailable [phone] Rosa Abraham RN Unavailable [phone] Reason for Visit * Reason Onset Date Comments Care Management Initial 06/14/2021 Encounter Details Date Type Department Care Team (Late st Contact Info) Description 06/14/2021 Patient Outreach [facility] [id number] [place] [address] Rosa Abraham RN Care Management Initial Social History Tobacco Use [...] COVID-19? No / Unsure 05/15/2021 12:45 PM DISPATCHER MOTOR VEHICLE documented as of this encounter Functional Status [...] Telephone Encounter - Rosa Abraham RN - 07/06/2021 12:59 PM DISPATCHER MOTOR VEHICLE Images from the original note were not included. Theresa Camargo MD You 23 minutes ago (12:34 PM) I sent for UA and culture but she really needs to get into Urology. ??She has had these for a whileand I am not necessarily convinced that she is having infection. ??If she is sitting around with something that is potentially contaminated. ??She really should get in there so they could catheterization her to get the specimen. ??I am fine with sending her somebody close to home if that is reasonable but I will send 1 more urine with culture but given that history, I am not certain that what I see on the culture is true but we will go ahead and try it this way since there is no other option atthe current. Spoke with patient's daughter Ange and above information given. Confirmed patient's home health nurse is through [facility] and order e-faxed to them through [employer] Daughter days she will work on a urology appointment today. ATCHER MOTOR VEHICLE * Telephone Encounter - Rosa Arbaham RN - 07/06/2021 10:29 AM DISPATCHER MOTOR VEHICLE Spoke with patient regarding care management services. Patient declined and will not be followed bycare management. She does say she has a UTI that has been untreated for almost a week. Reviewed recommendation as relayed to her home health nurse in 07/02 telephone encounter that she needed to call patient's urologist. Patient says she hasn't seen Dr. Camacho in a long time. Patient has olivas and says her urine looks the same as earlier this week, sediment, milky, and thick. Patient denies fever or confusion. Called Dr. Camacho's office and they said patient hasn't been in since 12/2020. With symptoms and it being that long, patient would need to call and make an appointment and she would either see him or one of the partners. They do not have any record of anyone calling them to report the UTI symptoms at all. Called patient and reported what I found out from Dr. Camacho's office. She says she can't get out right now because she's in a wheelchair. She says her family normally takes her, but she's not sure if she would be able to get out. Patient said it would be ok to call her daughter Ange. Called daughter Ange and explained all the above situation. She says there's more to the story. Patient has been having episodes with she will have explosive diarrhea without warning. She's being treated, but this is an ongoing problem for her. Because of this, they try to minimize trips out of the house, but she knows patient won't make it the long drive without some kind of problem. Daughter says patient went to Dr. Camacho's office maybe once or twice and they weren't impressed. Because of that and these episodes, daughter is tying to move the urologist and any other doctors they don't have a long standing relationship with closer to patient's house. They're also thinking more towards the future and thinking about moving her into a care home. Daughter says the home health nurse was interested in getting a UA and culture to see what's going on right now while they're trying to transition her care. ATCHER MOTOR VEHICLE * Telephone Encounter - Rosa Abraham RN - 06/22/2021 11:29 AM DISPATCHER MOTOR VEHICLE [facility] Total Care Program Enrollment Outreach Call Attempt #: 07/21 Call Method: Cell phone, Skills Matter Call Status: No answer / left message./Waiting response Next planned outreach: 07/06/2021 Rosa Abraham RN 06/22/2021 11:29 AM ATCHER MOTOR VEHICLE * Telephone Encounter - Rosa Abraham RN - 06/14/2021 2:41 PM DISPATCHER MOTOR VEHICLE Text message / email sent to patient regarding care management services. ATCHER MOTOR VEHICLE documented in this encounter Plan of Treatment Scheduled Orders Name Type Priority Associated Diagnoses Orde r Schedule URINALYSIS REFLEX MICROSCOPI C REFLEX CULTURE Lab Routine Urine frequency Ordered: 07/06/2021 documented as of this encounter Goals Goal Patient Goal Type Associated Problems Recent Progress Patient-Stated? 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 8:09 AM DISPATCHER MOTOR VEHICLE) No Alisa Jaramillo HEMOGLOBIN A1C < 7.0 Result Component 5.4( 12:00 AM CDT) No VilmasarthakAlisa marks documented as of this encounter Visit Diagnoses Diagnosis Urine frequency- Primary Urinary frequency documented in this encounter Care Teams Ent Nurse Relationship Specialty Start [place] [address] [facility] [address] [place] [address] PCP - General Internal Medicine 03/31/18 05/30/22 Brooke Haynes APRN-LYE PEEL OPERATOR [address] [facility] [address] [place] [address] PCP - Attributed-MSSP 10/17/20 09/15/21 Etienne Florez MD Orthopedic Surgery 12/09/14 [place] [address] [facility] [address] [place] [address] Oncology 09/15/17 [place] [address] [facility] [address] [place] [address] Neurology 06/26/18 [place] [address] [facility] [address] [place] [address] Cardiovascular Disease 06/26/18 [place] [address] [address] Pulmonary Disease 06/26/18 Yuliya Ibarra MD [address] [place] [address] Endocrinology 06/26/18 Phuong Callejas DPM [address] [place], [place] [address] Podiatry 06/26/18 Sy Barrientos MD [address] [place] [address] Ophthalmology 06/26/18 [place] [address] [id number] Pulmonary Disease 06/26/18 Rico Gasca MD [address] [facility] [address] [place] [address] Urology 06/26/18 Elle Landaverde MD [address] [facility] [address] [place] [address] Vascular Surgery 06/26/18 Kirk Truong MD [address] [facility] [address] [place] [address] Gastroenterology 06/26/18 [place] [address] [place] [address] General Surgery 06/26/18 [place] [address] [address] Pulmonary Disease 11/10/20 Rosa Abraham RN Stable ManagerClient Liaison 06/19/21 07/05/21 documented as of this encounter
--- OUTSIDE RECORDS SUMMARY | 2024-05-26 12:34 | XMS_ITS | Encounter Summary ---
Author Organization [facility] Address [address] [facility] [place] [address] Care Team Providers Care Commercial Roofer Name Role Phone Etienne Florez MD Unavailable Enrique Gonzalez MD Unavailable [phone] Theresa Camargo MD Primary Care Provider Nelson Ross MD Unavailable [phone] Laz Valencia MD Unavailable Russell Moran MD Unavailable Yuliya Ibarra MD Unavailable Phuong Callejas DPM Unavailable Sy Barrientos MD Unavailable Russell Moran MD Unavailable Rico Gasca MD Unavailable Elle Landaverde MD Unavailable Kirk Truong MD Unavailable [phone] Shira Love DO Unavailable [phone] Sara Schultz MD Unavailable [phone] Brooke Haynes TENNIS RACKET REPAIRER-STOVE INSTALLER Unavailable [phone] Rosa Abraham RN Unavailable [phone] Hussain Ray MD Unavailable [phone] Encounter Details Date Type Department Care Team (Late st Contact Info) Description 07/04/2021 Orders Only [facility] [address] [place] [address] Bonny Christensen Malignant neoplasm of upper-outer quadrant of left breast in female, estrogen receptor positive (HCC) ; Osteopenia of multiple sites; Iron deficiency anemia due to chronic blood loss Social History Tobacco Use Types Packs/Day Years [...] as of this encounter Plan of Treatment Scheduled Orders Name Type Priority Associated Diagnoses Orde r Schedule COMPREHENSIVE METABOLIC PANEL Lab Routine Malignant neoplasm of upper-outer quadrant of left breast in female, estrogen receptor positive (HCC) Osteopenia of multiple sites Iron deficiency anemia due to chronic blood loss Ordered: 07/04/2021 IRON + TIBC PANEL Lab Routine Malignant neoplasm of upper-outer quadrant of left breast in female, estrogen receptor positive (HCC) Osteopenia of multiple sites Iron deficiency anemia due to chronic blood loss Ordered: 07/04/2021 FERRITIN Lab Routine Malignant neoplasm of upper-outer quadrant of left breast in female, estrogen receptor positive (HCC) Osteopenia of multiple sites Iron deficiency anemia due to chronic blood loss Ordered: 07/04/2021 CBC WITH DIFFERENTIAL Lab Routine Malignant neoplasm of upper-outer quadrant of left breast in female, estrogen receptor positive (HCC) Osteopenia of multiple sites Iron deficiency anemia due to chronic blood loss Ordered: 07/04/2021 documented as of this encounter Goals Goal Patient Goal Type Associated Problems Recent Progress Patient-Stated? 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 8:09 AM MEDIA JOB TITLES) No Alisa Jaramillo HEMOGLOBIN A1C < 7.0 Result Component 5.4( 12:00 AM CDT) No Alisa Jaramillo documented as of this encounter Visit Diagnoses Diagnosis Malignant neoplasm of upper-outer quadrant of left breast in female, estrogen receptor positive (HCC)- Primary Osteopenia of multiple sites Iron deficiency anemia due to chronic blood loss Iron deficiency anemia secondary to blood loss (chronic) documented in this encounter Care Teams Commercial Roofer Relationship Specialty [place] [address] [facility] [address] [place], [place] [address] PCP - General Internal Medicine 03/31/18 05/30/22 Brooke Haynes, YAEL-STOVE INSTALLER [address] [facility] [address] [place] [address] PCP - Attributed-MSSP 10/17/20 09/15/21 Etienne Florez MD Orthopedic Surgery 12/09/14 [place] [address] [phone] Oncology 09/15/17 [place] [address] [place] [address] Neurology 06/26/18 [place] [address] [facility] [address] [place] [address] Cardiovascular Disease 06/26/18 [place] [address] [place] [address] [place] [id number] Pulmonary Disease 06/26/18 Yuliya Ibarra MD [address] [facility] [address] [place] [address] Endocrinology 06/26/18 Phunog Callejas DPM [address] [place] [id number] Podiatry 06/26/18 Sy Barrientos MD [address] [place] [address] [place] [address] Ophthalmology 06/26/18 [place] [address] [address] Pulmonary Disease 06/26/18 Rico Gasca MD [address] [facility] [address] [place] [address] Urology 06/26/18 Elle Landaverde MD [address] [facility] [address] [place] [address] Vascular Surgery 06/26/18 Kirk Truong MD [address] [facility] [address] [place] [address] Gastroenterology 06/26/18 [place] [address] [facility] [address] [place] [address] General Surgery 06/26/18 [place] [address] [facility] [address] [place] [address] Pulmonary Disease 11/10/20 Rosa Abraham, DES Glazier Stained GlassInventory Control Analyst 06/19/21 07/05/21 Hussain Ray MD [address] [facility] [address] [place] [address] Urology 07/11/21 documented as of this encounter
--- OUTSIDE RECORDS SUMMARY | 2024-05-26 12:34 | XMS_ITS | Encounter Summary ---
Author Organization [facility] Address [address] [place] [address] Care Team Providers Care Injection Molding Engineer Name Role Phone Etienne Florez MD Unavailable Enrique Gonzalez MD Unavailable [phone] Theresa Camargo MD Primary Care Provider Nelson Ross MD Unavailable Laz Valencia MD Unavailable Russell Moran MD Unavailable [phone] Yuliya Ibarra MD Unavailable [phone] Phuong Callejas DPM Unavailable Sy Barrientos MD Unavailable [phone] Russell Moran MD Unavailable Rico Gasca MD Unavailable Elle Landaverde MD Unavailable Kirk Truong MD Unavailable [phone] Shira Love DO Unavailable [phone] Sara Schultz MD Unavailable [phone] Brooke Haynes MANAGER WAREHOUSE-DIRECTOR OF MOBILE MARKETING Unavailable [phone] Hussain Ray MD Unavailable [phone] Encounter Details Date Type Department Care Team (Late st Contact Info) Description 08/15/2021 Orders Only [facility] Family Medicine [address] [facility] [address] [place] [address] Bonny Ballesteros APRNDIRECTOR OF MOBILE MARKETING [address] [facility] [address] [place] [address] Social History Tobacco Use Types [...] < 140/90 Blood Pressure 127/52(2022 8:09 AM MANAGER FRONT) No Alisa Jaramillo HEMOGLOBIN A1C < 7.0 Result Component 5.4( 12:00 AM CDT) No Alisa Jaramillo documented as of this encounter Visit Diagnoses Not on filedocumented in this encounter Care Teams Injection Molding Engineer Relationship Specialty [place] [address] [facility] [address] [place] [address] PCP - General Internal Medicine 03/31/18 05/30/22 Brooke Haynes APRN-DIRECTOR OF MOBILE MARKETING [address] [facility] [address] [place] [address] PCP - Attributed-MSSP 10/17/20 09/15/21 Etienne Florez MD Orthopedic Surgery 12/09/14 [place] [address] [facility] [address] [place] [id number] Oncology 09/15/17 [place] [address] [facility] [address] [place] [phone] Neurology 06/26/18 [place] [address] [facility] [address] [place] [address] Cardiovascular Disease 06/26/18 [place] [address] [address] Pulmonary Disease 06/26/18 Yuliya Ibarra MD [address] [facility] [address] [place] [id number] Endocrinology 06/26/18 Phuong Callejas DPM [address] [place] [address] Podiatry 06/26/18 Sy Barrientos MD [address] [place] [address] [place] [address] Ophthalmology 06/26/18 [place] [address] [address] Pulmonary Disease 06/26/18 Rico Gasca MD [address] [address] Urology 06/26/18 Elle Landaverde MD [address] [address] Vascular Surgery 06/26/18 Kirk Truong MD [address] [address] Gastroenterology 06/26/18 [place] [address] [facility] [address] [place] [address] General Surgery 06/26/18 [place] [address] [facility] [address] [place] [address] Pulmonary Disease 11/10/20 Hussain Ray MD [address] [facility] [address] [place] [address] Urology 07/11/21 documented as of this encounter
--- OUTSIDE RECORDS SUMMARY | 2024-05-26 12:34 | XMS_ITS | Encounter Summary ---
Author Organization [facility] Address [address] [place] [address] Care Team Providers Care Solderer Dipper Name Role Phone Etienne Florez MD Unavailable Enrique Gonzalez MD Unavailable [phone] Theresa Camargo MD Primary Care Provider [phone] Nelson Ross MD Unavailable [phone] Laz Valencia MD Unavailable Russell Moran MD Unavailable [phone] Yuliya Ibarra MD Unavailable [phone] Phuong Callejas DPM Unavailable [phone] Sy Barrientos MD Unavailable Russell Moran MD Unavailable Rico Gasca MD Unavailable Elle Landaverde MD Unavailable Kirk Truong MD Unavailable [phone] Shira Love DO Unavailable [phone] Sara Schultz MD Unavailable [phone] Hussain Ray MD Unavailable [phone] Enrique Gonzalez MD Unavailable [phone] Reason for Visit * Auth/Cert (Routine) Specialty Diagnoses / Procedures Referred By Contac t Referred To Contact Diagnoses Gastric outlet obstruction with encephalopathy Referral ID Status Reason Start Date Expiration Date Visits Re quested Visits Authorized [id number] 1 1 Encounter Details Date Type Department Care Team (Latest Contact Info) Description 05/19/2022 11:30 AM [facility] - 05/30/2022 11:00 AM [facility] Hospital Encounter SL 8S ACUTE [address] [place] [id number] Won Mixon MD [address] [place] [address] [address] DIV OF PULMONARY/[place] [address] Brayden Villeda MD [address] [place] [address] [address] DIV OF PULMONARY/[place] [address] Mich Nolan MD [address] [place], [place] [id number] Cristin Salgado MD [address] [place] [address] Surgery General Discharge Disposition: Group Home Facility Social History Tobacco Use Types Packs/Day Years [...] Comments Blood Pressure 127/52 05/30/2022 8:09 AM [facility] Pulse 80 05/30/2022 8:09 AM [facility] Temperature 37 ??C (98.6 ??F) 05/30/2022 8:09 AM [facility] Respiratory Rate 19 05/30/2022 8:09 AM [facility] Oxygen Saturation 96% 05/30/2022 8:09 AM [facility] Inhaled Oxygen Concentration - - Weight 85.1 kg (187 lb 10.5 oz) 05/23/2022 4:00 AM [facility] Height 162.6 cm (5' 4 ) 05/22/2022 11:3 9 AM [facility] Body Mass Index 32.21 05/22/2022 11:39 AM [facility] documented in this encounter Functional Status Functional [...] Yes 05/22/2022 documented as of this encounter Discharge Summaries * Cristin Salgado MD - 05/30/2022 11:00 AM CST Images from the original note were not included. Discharge Summary Patient: Loc Anderson [id number] 81 year old 1940 Admission Date: 05/19/2022 Discharge Date: 05/30/2022 Admitting Physician: Won Mixon MD Discharge Physician: Cristin Salgado MD Present on Admission: ??? (Resolved) Encephalopathy ??? HTN (hypertension) ??? Type 2 diabetes mellitus without complication (CMS/HCC) ??? HSP (hereditary spastic paraplegia) (CMS/HCC) ??? Chronic diastolic CHF (congestive heart failure) (CMS/HCC) ??? Chronic idiopathic constipation ??? Hyperparathyroidism (CMS/HCC) ??? Atrial fibrillation (CMS/HCC) ??? Wheelchair bound ??? (Resolved) Urinary tract infection associated with indwelling urethral catheter (CMS/HCC) ??? Chronic indwelling Schmitt catheter ??? (Resolved) Ileus (CMS/HCC) ??? (Resolved) Hypokalemia ??? (Resolved) Hypernatremia ??? 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 Admission Condition: Serious Discharge Diagnoses: HTN (hypertension) POA: Yes Type 2 diabetes mellitus without complication (CMS/HCC) POA: Yes HSP (hereditary spastic paraplegia) (CMS/HCC) POA: Yes Chronic diastolic CHF (congestive heart failure) (CMS/HCC) POA: Yes Chronic idiopathic constipation POA: Yes Hyperparathyroidism (CMS/HCC) POA: Yes Atrial fibrillation (CMS/HCC) POA: Yes Wheelchair bound POA: Yes Chronic indwelling Schmitt catheter POA: Yes 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 POA: Yes Discharged Condition: Stable Indication for Admission: Acute encephalopathy, significant abdominal distention Hospital Course: Loc Anderson is a 81 year old female??with past medical history significant for HTN, DM II, Afib, DVT/PE on Apixaban, hereditary spastic paraplegia, MS, neurogenic bladder with chronic schmitt catheter??who presented for abdominal distension and acute encephalopathy. For her abdominal distension, there was concerns for ileus and possible gastric outlet obstruction.Started on aggressive bowel regimen and abdominal distension improved. Now having essentially dailybowel movements on current regimen. She also had evidence of acute encephalopathy thought secondary to UTI. Outside cultures grew Proteus and Pseudomonas. ID was consulted and recommended to complete of meropenem course which was finished on 05/29. She has a sacral pressure wound that was present on admission. Continue wound care orders as recommended and discharge order. Discussed with daughter that patient is unlikely to heal from this sacralwound completely given bedbound status but will need close attention at nursing facility She was discharged back to her long-term care facility on 05/30. [place] improved on day of discharge.Daughter agreed that she was ready to go back to nursing facility and she was counseled on medications and return precautions. Medication changes made -Deescalate diabetes therapy as blood sugars were well controlled on minimal sliding scale insulin while inpatient.. SGLT2i relative contraindication given recurrent UTI. Recommend hold Lantus until blood sugar pattern established at nursing facility. Stopped glimepiride due to increased risk of hypoglycemia in elderly. -help verapamil to low normal heart rate -held metolazone as she did not have evidence of significant lower extremity swelling requiring itsuse Problem List Items Addressed This Visit Endocrine RESOLVED: Hypokalemia Relevant Orders EKG 12-LEAD (Completed) Cardiovascular Chronic diastolic CHF (congestive heart failure) ([facility]) (Chronic) Relevant Orders EKG 12-LEAD (Completed) Atrial fibrillation ([facility]) (Chronic) Relevant Orders Group Home Facility (SNF) Admission Lymphedema of both lower extremities Relevant Orders Group Home Facility (SNF) Admission Gastrointestinal Gastric outlet obstruction - Primary Relevant Orders ADMIT TO (Completed) XR ABDOMEN KUB PORTABLE (Completed) XR CHEST 1VW PORTABLE (Completed) Group Home Facility (SNF) Admission RESOLVED: Ileus ([facility]/HCC) Relevant Orders XR ABDOMEN KUB (Completed) Neurologic 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) Relevant Orders Group Home Facility (SNF) Admission RESOLVED: Encephalopathy Relevant Orders ADMIT TO (Completed) XR CHEST 1VW PORTABLE (Completed) CT HEAD WO CONTRAST (Completed) Genitourinary Chronic indwelling Schmitt catheter Relevant Orders XR ABDOMEN KUB PORTABLE (Completed) Group Home Facility (SNF) Admission Musculoskeletal 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 Relevant Orders XR ABDOMEN KUB PORTABLE (Completed) Other Change in bowel habits Relevant Orders XR ABDOMEN KUB PORTABLE (Completed) Consults: IP CONSULT TO WOUND NURSE IP CONSULT TO GENERAL SURGERY IP CONSULT TO GASTROENTEROLOGY IP CONSULT TO UROLOGY IP CONSULT TO NUTRITIONAL SERV IP CONSULT TO ON CAR SUPERVISOR IP CONSULT TO INFECTIOUS DISEASES Significant Diagnostic Studies: No results found. Microbiology Results (Displays last 21 days for this encounter ONLY) Procedure Component Value - Date/Time SARS-COV-2 (COVID-19) RAPID [[id number]] (Normal) Collected: 05/29/22 1556 Lab Status: Final result Specimen: Microbiology from Nasopharyngeal Updated: 05/29/22 1638 COVID-19 PCR Not detected Narrative: The Cepheid Xpert Xpress SARS-COV-2 has been authorized by the Food and Drug Administration (FDA) under an Emergency Use Authorization (EUA). This test has been validated in accordance with the FDA'sguidance document Policy for Diagnostic Testing in Laboratories [...] this EUA assay are available upon request. SARS-COV-2 (COVID-19) RAPID [[id number]] (Normal) Collected: 05/21/22 0007 Lab Status: Final result Specimen: Microbiology from Nasopharyngeal Updated: 05/21/22 0050 COVID-19 PCR Not detected Narrative: The Cepheid Xpert Xpress SARS-COV-2 has been authorized by the Food and Drug Administration (FDA) under an Emergency Use Authorization (EUA). This test has been validated in accordance with the FDA'sguidance document Policy for Diagnostic Testing in Laboratories [...] this EUA assay are available upon request. C DIFFICILE GDH AG + TOXIN A+B [[id number]] (Normal) Collected: 05/19/22 1704 Lab Status: Final result Specimen: Stool from Feces Updated: 05/19/222105 C difficile GDH antigen & toxin A/B NEGATIVE Narrative: Negative for toxigenic C. difficile CULTURE URINE [[id number]] Collected: 05/19/22 1537 Lab Status: Final result Specimen: Urine Cath [place] Updated: 05/20/22 222 Culture Urine 10,000-50,000 CFU/mL urogenital rebeka CULTURE BLOOD [[id number]] (Normal) Collected: 05/19/22 1236 Lab Status: Final result Specimen: Blood Peripheral Updated: 05/24/22 1600 Culture No growth day 5 CULTURE BLOOD [[id number]] (Normal) Collected: 05/19/22 1218 Lab Status: Final result Specimen: Blood Peripheral Updated: 05/24/22 1600 Culture No growth day 5 Physical Exam Elderly female in no distress Bedbound with decreased lower extremity strength Conversant, pleasant Abdomen is mildly distended but soft with good bowel sounds No lower extremity edema noted Disposition: [facility] >30 minutes Medication List START taking these medications acetaminophen 325 MG tablet Commonly known as: Tylenol Take 2 (two) tablets by mouth every 6 hours as needed Maximum allowable Acetaminophen amount = 4 Grams (4000 mg) / 24 hours. bisacodyl 10 MG suppository Commonly known as: Dulcolax Insert 1 (one) suppository into the rectum once daily as needed for Constipation senna-docusate 8.6-50 MG tablet Commonly known as: Senokot-S Take 1 (one) tablet by mouth once daily CHANGE how you take these medications amitriptyline 25 MG tablet Commonly known as: Elavil Take 1 (one) tablet by mouth at bedtime What changed: ?? medication strength ?? how much to take metoclopramide 10 MG tablet Commonly known as: Reglan Take 1 (one) tablet by mouth 3 times daily as needed for Nausea/Vomiting What changed: ?? when to take this ?? reasons to take this polyethylene glycol 3350 17 g packet Commonly known as: Miralax Take 17 (seventeen) g by mouth once daily What changed: See the new instructions. potassium chloride ER 20 MEQ tablet Commonly known as: Klor-Con M Take 1 (one) tablet by mouth once daily What changed: when to take this CONTINUE taking these medications anastrozole 1 MG tablet Commonly known as: Arimidex apixaban 5 MG tablet Commonly known as: Eliquis calcium polycarbophil 625 MG tablet Commonly known as: Fibercon Cranberry 425 MG cyanocobalamin 500 MCG tablet Commonly known as: Vitamin B-12 dorzolamide 2 % ophthalmic solution Commonly known as: Trusopt esomeprazole 40 MG capsule Commonly known as: NexIUM flecainide 50 MG tablet Commonly known as: Tambocor furosemide 40 MG tablet Commonly known as: Lasix Take 1 (one) tablet by mouth once daily HYDROcodone-acetaminophen 5-325 MG tablet Commonly known as: Silverpeak lactulose 10 GM/15ML solution Commonly known as: Chronulac * levothyroxine 75 MCG tablet Commonly known as: Synthroid * levothyroxine 75 MCG tablet Commonly known as: Synthroid Linzess 290 MCG capsule Generic drug: linaCLOtide multivitamin with iron tablet nitroGLYCERIN 0.4 MG tablet Commonly known as: Nitrostat Other pneumatic compression pump twice a day on her legs for lymphedema. Setting are between 40 to 50 mmgh DX lymphedema Prolensa 0.07 % opthalmic solution Generic drug: bromfenac Sodium rosuvastatin 10 MG tablet Commonly known as: Crestor saccharomyces 250 MG capsule Commonly known as: Florastor Extra Str SITagliptin 100 MG tablet Commonly known as: Januvia spironolactone 25 MG tablet Commonly known as: Aldactone trospium 20 MG tablet Commonly known as: Sanctura vitamin D3 25 MCG (1000 UNITS) tablet Commonly known as: Cholecalciferol * This list has 2 medication(s) that are the same as other medications prescribed for you. Read thedirections carefully, and ask your doctor or other care provider to review them with you. STOP taking these medications denosumab 60 MG/ML SC injection Commonly known as: Prolia docusate sodium 100 MG capsule Commonly known as: Colace glimepiride 1 MG tablet Commonly known as: Amaryl glimepiride 2 MG tablet Commonly known as: Amaryl insulin glargine pen Commonly known as: Lantus Invokana 100 MG tablet Generic drug: canagliflozin metOLazone 2.5 MG tablet Commonly known as: Zaroxolyn miconazole 2 % cream Commonly known as: Micatin Simethicone 125 MG Tabs verapamil CR 120 MG tablet Commonly known as: Isoptin-SR Xanax 0.25 MG tablet Generic drug: ALPRAZolam Where to Get Your Medications Information about where to get these medications is not yet available Ask your nurse or doctor about these medications ?? acetaminophen 325 MG tablet ?? amitriptyline 25 MG tablet ?? bisacodyl 10 MG suppository ?? metoclopramide 10 MG tablet ?? polyethylene glycol 3350 17 g packet ?? potassium chloride ER 20 MEQ tablet ?? senna-docusate 8.6-50 MG tablet Discharge Instructions INSTRUCTIONS FROM YOUR PROVIDER: You were admitted to the hospital for confusion, UTI, and bowel issues. CHANGES to your medications: There were changes made to the medications you take. See annotations in paper form given to family member. If you have any questions about your medications, you should ask your primary care provider or pharmacist. INSTRUCTIONS and FOLLOW-UP: Continue aggressive bowel regimen to prevent constipation and routine schmitt care. You also need close wound care for the sacral pressure wound as it can become infected. You should schedule an appointment with your primary care provider to check in on you. It has been a pleasure taking care of you. [facility] Department of Internal Medicine Division of Hospital Medicine You may reach us at (dial 0 for the container crane operator). [facility] documented in this encounter Discharge Instructions * Discharge Instructions* Cristin Salgado MD - 05/30/2022 9:07 AM [facility] INSTRUCTIONS FROM YOUR PROVIDER: You were admitted to the hospital for confusion, UTI, and bowel issues. CHANGES to your medications: There were changes made to the medications you take. See annotations in paper form given to family member. If you have any questions about your medications, you should ask your primary care provider or pharmacist. INSTRUCTIONS and FOLLOW-UP: Continue aggressive bowel regimen to prevent constipation and routine schmitt care. You also need close wound care for the sacral pressure wound as it can become infected. You should schedule an appointment with your primary care provider to check in on you. It has been a pleasure taking care of you. [facility] Department of Internal Medicine Division of Hospital Medicine You may reach us at (dial 0 for the container crane operator). [facility] documented in this encounter Medications at Time of Discharge Medication Sig Dispensed Refills Start Date End Date acetaminophen (Tylenol) 325 MG tablet Take 2 (two) tablets by mouth every 6 hours as needed Maximum allowable Acetaminophen amount = 4 Grams (4000 mg) / 24 hours. 05/30/2022 amitriptyline (Elavil) 25 MG tablet Take 1 (one) tablet by mouth at bedtime 05/30/2022 anastrozole (Arimidex) 1 MG tablet Take 1 (one) tablet by mouth once daily apixaban (Eliquis) 5 MG tablet Take 1 (one) tablet by mouth 2 times daily bisacodyl (Dulcolax) 10 MG suppository Insert 1 (one) suppository into the rectum once daily as needed for Constipation 05/30/2022 calcium polycarbophil (Fibercon) 625 MG tablet Take 1 (one) tablet by mouth 3 times daily Cranberry 425 MG Take 1 (one) tablet by mouth once daily cyanocobalamin (Vitamin B-12) 500 MCG tablet Take 1 (one) tablet by mouth once daily dorzolamide (TRUSOPT) 2 % ophthalmic solution Instill 1 drop into both eyes 2 times daily 11/16/2019 esomeprazole (NexIUM) 40 MG capsule Take 1 (one) capsule by mouth daily before breakfast flecainide (TAMBOCOR) 50 MG tablet Take 1 (one) tablet by mouth 2 times daily 09/11/2020 furosemide (LASIX) 40 MG tablet Take 1 (one) tablet by mouth once daily 90 tablet 2 07/04/2020 HYDROcodone-acetaminoph en (Silverpeak) 5-325 MG tablet Take 1 (one) tablet by mouth every 6 hours as needed for Pain lactulose (Chronulac) 10 GM/15ML solution Take 30 mL by mouth 4 times daily as needed for Constipation levothyroxine (Synthroid) 75 MCG tablet Take one tablet by mouth once daily on Mon, , Wed, Thurs, Fri, and Sat levothyroxine (Synthroid) 75 MCG tablet Take two tablets by mouth once daily on only linaCLOtide (LINZESS) 290 MCG capsule Take 290 mcg by mouth daily before breakfast Take on an empty stomach at least 30 minutes prior to first meal of the day. metoclopramide (Reglan) 10 MG tablet Take 1 (one) tablet by mouth 3 times daily as needed for Nausea/Vomiting 05/30/2022 multivitamin with iron (ONE A DAY WITH IRON) tablet Take 1 Tab by mouth once daily. nitroGLYCERIN (Nitrostat) 0.4 MG tablet Dissolve 1 (one) tablet under the tongue every 5 minutes as needed for Angina Other pneumatic compression pump twice a day on her legs for lymphedema. Setting are between 40 to 50 mmgh DX lymphedema 1 Each 08/15/2021 polyethylene glycol 3350 (Miralax) 17 g packet Take 17 (seventeen) g by mouth once daily 05/30/2022 potassium chloride ER (Klor-Con M) 20 MEQ tablet Take 1 (one) tablet by mouth once daily 05/30/2022 PROLENSA 0.07 % opthalmic solution Instill 1 drop into right eye once daily 2 02/25/2019 rosuvastatin (Crestor) 10 MG tablet Take 1 (one) tablet by mouth at bedtime saccharomyces (Florastor Extra Str) 250 MG capsule Take 1 (one) capsule by mouth 2 times daily senna-docusate (Senokot-S) 8.6-50 MG tablet Take 1 (one) tablet by mouth once daily 05/30/2022 SITagliptin (JANUVIA) 100 MG tablet Take 100 mg by mouth once daily spironolactone (ALDACTONE) 25 MG tablet Take 25 mg by mouth once daily trospium (SANCTURA) 20 MG tablet Take 20 mg by mouth 2 times daily 01/04/2021 vitamin D3 (CHOLECALCIFEROL) 25 MCG (1000 UNITS) tablet Take 1,000 Units by mouth once daily documented as of this encounter Progress Notes * Iliana Dan RN - 05/30/2022 10:07 AM CST Problem: Fall Risk Goal: Fall risk and fall related injury risk are minimized (interventions related to the fall risk can be found in the flowsheet documentation) Outcome: Progressing Problem: Skin Integrity Goal: Skin integrity is maintained or improved Outcome: Progressing Problem: Pain/Discomfort Goal: Patient exhibits reduced pain/discomfort as evidenced by pain scores Outcome: Progressing Goal: Patient uses pharmacological and non-pharmacological pain management strategies. Outcome: Progressing Goal: Patient verbalizes acceptable level of pain relief and ability to engage in desired activity. Outcome: Progressing Problem: Tissue injury due to various disease processes Goal: Provide optimal wound healing environment Outcome: Progressing Problem: Tissue Injury due to Inadequate Arterial Perfusion Goal: Maintain Clean/Stable wound environment Outcome: Progressing Problem: Tissue Injury due to Venous Hypertension Goal: Maintain Infection Free Stable Wound Environment Outcome: Progressing Problem: Tissue Injury Due to Loss of Protective Sensation Goal: Protect Injured Tissue and Prevent Further Injury Outcome: Progressing Problem: Tissue Injury Due to External Forces of Pressure, Friction, and Shear Goal: Protect Skin from External Forces Outcome: Progressing Goal: Maintain and Improve Tissue Tolerance to Pressure Outcome: Progressing Problem: Nutrient: Increased nutrient needs (specify) Goal: Total intake will meet estimated nutrient needs Outcome: Progressing Problem: Infection Goal: Signs and symptoms of infections are decreased or avoided Outcome: Progressing Problem: Daily Care Goal: Daily care needs are met Outcome: Progressing Problem: Hemodynamic Status/Cardiac Output Goal: Patient has stable vital signs and fluid balance Outcome: Progressing Problem: Balance Goal: LTG - Patient will demonstrate Intervention to enhance balance for safe completion of daily activities Outcome: Progressing Goal: LTG - Patient will maintain balance to allow for safe mobility Outcome: Progressing Problem: Discharge Planning Goal: Patient's continuum of care needs are met Outcome: Progressing [facility] * Gricel Valdez - 05/30/2022 8:44 AM CST Facility Transfer Note Level of Care: Actual level of care at discharge: Care Home - Skilled Facility Facility Name: (include name of person confirming admission): Actual discharge provider: ISABEL WOODALL [facility] Made Aware of Special Needs (if applicable): n/a RN Call Report to:[phone] Fax D/C Orders to:[phone] Transportation (company and number): [employer] [facility] crew Certificate of Medical Necessity rationale: completed Date/time of transfer: 05/30 10:30am Accepting MD and contact #: Completed and Signed [id number] (if applicable): n/a Family/Other Notified of Transfer (name/phone): Ange [phone] Authorization Skilled Care: Authorization for Transportation: Verified Qualifying Stay(Skilled Only): NOT APPLICABLE Comments: Name/Phone number: Gricel Valdez [phone] [facility] * Astrid Reveles RN - 05/30/2022 4:11 AM CST Problem: Fall Risk Goal: Fall risk and fall related injury risk are minimized (interventions related to the fall risk can be found in the flowsheet documentation) Outcome: Progressing Problem: Skin Integrity Goal: Skin integrity is maintained or improved Outcome: Progressing Problem: Pain/Discomfort Goal: Patient exhibits reduced pain/discomfort as evidenced by pain scores Outcome: Progressing Goal: Patient uses pharmacological and non-pharmacological pain management strategies. Outcome: Progressing Goal: Patient verbalizes acceptable level of pain relief and ability to engage in desired activity. Outcome: Progressing Problem: Tissue injury due to various disease processes Goal: Provide optimal wound healing environment Outcome: Progressing Problem: Tissue Injury due to Inadequate Arterial Perfusion Goal: Maintain Clean/Stable wound environment Outcome: Progressing Problem: Tissue Injury due to Venous Hypertension Goal: Maintain Infection Free Stable Wound Environment Outcome: Progressing Problem: Tissue Injury Due to Loss of Protective Sensation Goal: Protect Injured Tissue and Prevent Further Injury Outcome: Progressing Problem: Tissue Injury Due to External Forces of Pressure, Friction, and Shear Goal: Protect Skin from External Forces Outcome: Progressing Goal: Maintain and Improve Tissue Tolerance to Pressure Outcome: Progressing Problem: Infection Goal: Signs and symptoms of infections are decreased or avoided Outcome: Progressing Problem: Daily Care Goal: Daily care needs are met Outcome: Progressing [facility] Gricel Eddy - 05/29/2022 3:01 PM CST ALEX spoke with Aleta at [facility]. They can accept the patient back tomorrow morning pending a COVID test. ALEX set up [facility] Crew for 03/30 at 10:30am. ALEX updated the patient's daughter Ange. Gricel Valdez, WASH DRILLER HELPER 05/29/[phone] [facility] * Cristin Salgado MD - 05/29/2022 12:54 PM CST GENERAL INTERNAL MEDICINE Progress note 05/29/2022 12:54 PM Admit Date: 05/19/2022 Interval History: Appetite is good Feels well and ready to go back to care home, oriented, pleasant Last bowel movement yesterday Medications:: MAR reviewed Physical Examination: BP 151/52 Pulse 82 Temp 98 ??F (36.7 ??C) Resp 18 Ht 1.626 m (5' 4 ) Wt 85.1 kg (187 lb 10.5 oz) SpO2 98% GEN: awake, alert, NAD elderly woman HEENT: MMM, NC/AT, conjunctiva clear NECK: supple, trachea midline LUNGS: nonlabored respiratory pattern, LCAB w/o wheeze/rhonchi/rale CV: RRR, normal heart sounds, no edema ABD: soft, +BS, distended NEURO: awake, conversant, generalized deconditioning no focal deficits PSYCH: cooperative, appropriate mood/affect SKIN: warm, dry Labs: Relevant labs reviewed, Radiology: Relevant imaging reviewed. Assessment:81 year old female with past medical history significant for HTN, DM II, Afib, DVT/PE onApixaban, hereditary spastic paraplegia, MS, neurogenic bladder with chronic schmitt catheter??who presented for abdominal distension. ?? 1. Chronic constipation: 2/2 to neurogenic bowel, with ileus, start senna and miralax,??home linzess resumed, enema PRN ?? 2. Acute encephalopathy: resolved 2/2 to UTI, monitor ?? 3. UTI:?? -urine culture with urogentinal rebeka??on 05/20/22, however urine culture from OSH 05/19/22 (collected from flushed schmitt port) requested and grew proteus and pseudomonas with intermediate resistance to cefepime and CTX -was on zosyn which was transitioned to ceftriaxone -blood culture??from OSH 05/19/22??without growth -continue??Meropenem??(EOT 05/29) per??ID, will need to complete inpatient since NH cannot accommodate this per SW ?? 4. DM2: continue insulin sliding scale and hypoglycemia protocol ?? 5.Primary hyperparathyroidism: monitor Ca and Phos ?? 6. Sacral pressure wound, unstageable, present on admit: wound care and pressure offloading 7.Hx of MS and neurogenic bladder: continue schmitt, follow up with outpatient urology ?? 8. Hx of PE/DVT: continue eliquis ?? 9. Hypothyroidism: TSH wnl, resume synthroid? 10. Paroxysmal afib: rate controlled,??spoke with Dr. Valencia outpatient foreign exchange student coordinator and confirms that patient needs to be on flecainide 50 mg BID,??hold verapamil due to rate controlled ? DVT PPx: apixaban Code Status: full Disposition: Back to nursing facility once IV abx complete (05/30/22) Cristin Salgado MD General Internal Medicine 05/29/2022 12:54 PM [facility] * Senthil Hoffman RN - 05/29/2022 1:12 AM CST Problem: Fall Risk Goal: Fall risk and fall related injury risk are minimized (interventions related to the fall risk can be found in the flowsheet documentation) Outcome: Progressing Problem: Skin Integrity Goal: Skin integrity is maintained or improved Outcome: Progressing Problem: Pain/Discomfort Goal: Patient exhibits reduced pain/discomfort as evidenced by pain scores Outcome: Progressing Goal: Patient uses pharmacological and non-pharmacological pain management strategies. Outcome: Progressing Goal: Patient verbalizes acceptable level of pain relief and ability to engage in desired activity. Outcome: Progressing Problem: Tissue injury due to various disease processes Goal: Provide optimal wound healing environment Outcome: Progressing Problem: Tissue Injury due to Inadequate Arterial Perfusion Goal: Maintain Clean/Stable wound environment Outcome: Progressing Problem: Tissue Injury due to Venous Hypertension Goal: Maintain Infection Free Stable Wound Environment Outcome: Progressing Problem: Tissue Injury Due to Loss of Protective Sensation Goal: Protect Injured Tissue and Prevent Further Injury Outcome: Progressing Problem: Tissue Injury Due to External Forces of Pressure, Friction, and Shear Goal: Protect Skin from External Forces Outcome: Progressing Goal: Maintain and Improve Tissue Tolerance to Pressure Outcome: Progressing Problem: Nutrient: Increased nutrient needs (specify) Goal: Total intake will meet estimated nutrient needs Outcome: Progressing Problem: Infection Goal: Signs and symptoms of infections are decreased or avoided Outcome: Progressing Problem: Daily Care Goal: Daily care needs are met Outcome: Progressing Problem: Balance Goal: LTG - Patient will demonstrate Intervention to enhance balance for safe completion of daily activities Outcome: Progressing Goal: LTG - Patient will maintain balance to allow for safe mobility Outcome: Progressing Problem: Discharge Planning Goal: Patient's continuum of care needs are met Outcome: Progressing [facility] * Jillian Dolan RN - 05/28/2022 6:18 PM CST Problem: Fall Risk Goal: Fall risk and fall related injury risk are minimized (interventions related to the fall risk can be found in the flowsheet documentation) Outcome: Progressing Problem: Skin Integrity Goal: Skin integrity is maintained or improved Outcome: Progressing Problem: Safety related to restraint use Goal: Absence of injury while restrained Outcome: Completed Problem: Pain/Discomfort Goal: Patient exhibits reduced pain/discomfort as evidenced by pain scores Outcome: Progressing Goal: Patient uses pharmacological and non-pharmacological pain management strategies. Outcome: Progressing Goal: Patient verbalizes acceptable level of pain relief and ability to engage in desired activity. Outcome: Progressing Problem: Tissue injury due to various disease processes Goal: Provide optimal wound healing environment Outcome: Progressing Problem: Tissue Injury due to Inadequate Arterial Perfusion Goal: Maintain Clean/Stable wound environment Outcome: Progressing [facility] * Claude Robles RD/MILA - 05/28/2022 4:11 PM CST Nutrition Re-Assessment Brief Synopsis: Patient is at Nutrition Risk; Specific criteria can be found in assessment below Nutrition Plan: Continue regular diet order +continue claudia BID Recommendations to Physician: None Comments: Pt scheduled for follow up. PO intake is 75-100% at meals since diet was advanced to regular. She is drinking her ONS. No weight loss documented during admission. Last BM was 05/26/22, 2 BM x24 hours. Will continue to monitor as needed. Assessment: Med/Surg History and Clinical Diagnoses: PMHx of HTN, T2DM, Afib, DVT/PE (on eliquis), hereditary spastic paraplegia, MS, neurogenic bladder (chronic schmitt cathter), breast cancer, cognitive impairment (baseline AOx2-3) [place] resident admitted 05/19/2022 with altered mental status and low grade fever Diet order accuracy Current diet order: Regular Current supplement order: Claudia BID Nutrition recommendation: agree with current nutrition order P.O.Intake for the past 48 hrs:% Meal Taken Av.5 % Min: 75 % Max: 100 % Supplement(s) Consumed- Last 48 hours Date/Time Dietary Supplement Name Liquid Supplement Consumed (mL) Non-Liquid Supplement Consumed (%) 05/27/22 1700 -- 110 ML -- 05/28/22 0800 -- 140 ML -- 05/28/22 1200 -- 100 ML -- Food Allergies: Other (Comments) (black pepper) GI Concerns: Constipation Chewing/Swallowing: None Pain affecting intake: No Admission weight: Weight: 82.5 kg (181 lb 14.1 oz) (05/20/22 0931) Recent Weights/Methods 05/20/2022 0931 05/22/2022 1139 05/23/2022 0400 Weight: 82.5 kg (181 lb 14.1 oz) 82.1 kg (181 lb) 85.1 kg (187 lb 10.5 oz) Weight Method (Utilize Scales): -- Per H&P-(outpatient clinic use only) Bedscale BMI: Body mass index is 32.21 kg/m??. BMI Range: Obese Class 1 Wt Comments: Monitoring Height: 162.6 cm (5' 4 ) IBW/lb (Calculated) Female: 120, Laboratory values reviewed. Recent Labs Component Name 05/28/22 0629 05/27/22 2342 05/27/22 1526 05/20/22 1344 05/20/22 0336 05/19/22 2025 05/19/22 1201 01/18/21 0941 01/05/21 1450 12/08/20 1000 12/08/20 0000 BUN 13 15 18 - 24 - 39* 26* 31* 37* 39* CREATININE 0.40* 0.48* 0.54* - 0.58 - 0.66 0.87 1.13* 0.95 0.87 NA 138 139 139 - 148* - 142 - - - - POTASSIUM 3.8 3.7 4.0 - 2.2* - 2.1* 4.2 3.0* 3.2* 3.3* CL 106 109* 107 - 114* - 110* - - - - CO2 23 24 25 - 26 - 22 25 27 25 25 GLUCOSE 142* 149* 161* - 114 - 215* 123* 143* 168* 169* CALCIUM 10.6* 10.6* 10.5* - 9.8 - 10.5* 10.6* 11.5* 11.1* 11.4* PROT - - - - 4.9* - 5.8* - - - - ALB - - - - 2.4* - 2.8* - - - - TBILI - - - - 0.3 - 0.3 - - - - ALKPHOS - - - - 65 - 84 - - - 83 ALT - - - - - - - - 21 AST - - - - - - - 19 ANIONGAP 13 10 11 - - 12 - 12 - BCR 33* 31* 33* - 41* - >50* - - - - OSMOLALITY 289 292 293 - 311* - 310* - - - - AGRATIO - - - - 1.0* - 0.9* - - - - EGFR >90 >90 >90 - 90 - 87* >60 46 56 62 EGFRAFR - - - - - - - >60 56 >60 72 - = values in this interval not displayed. Medications noted. Current Facility-Administered Medications Medication ??? 0.9% NaCl injection 3 mL And ??? 0.9% NaCl injection 1-10 mL ??? acetaminophen (Tylenol) tablet 650 mg ??? amitriptyline (Elavil) tablet 50 mg ??? apixaban (Eliquis) tablet 5 mg ??? bisacodyl (Dulcolax) suppository 10 mg ??? dextrose 10 % IV bolus Or ??? dextrose 10 % IV bolus ??? flecainide (Tambocor) tablet 50 mg ??? glucagon (Glucagen) injection 1 mg ??? glucose (Diabetic Use) (Dex4 Glucose) oral liquid ??? glucose (Diabetic Use) oral gel ??? glucose chew tablet 4 tablet ??? insulin lispro (HumaLOG;ADMelog) 100 UNIT/ML pen 0-6 Units ??? levothyroxine (Synthroid) tablet 150 mcg ??? levothyroxine (Synthroid) tablet 75 mcg ??? linaCLOtide (Linzess) capsule 290 mcg ??? meropenem (Merrem) 1,000 mg in 0.9% NaCl IV 50 mL IVPB ??? pantoprazole EC (Protonix) tablet 40 mg ??? polyethylene glycol 3350 (Miralax) packet 17 g ??? rosuvastatin (Crestor) tablet 10 mg ??? senna-docusate (Senokot-S) tablet 1 tablet ??? sodium - potassium phosphates (K Phos Neutral) tablet 1 tablet ??? trospium (Sanctura) tablet 20 mg Skin/Wound: sacral wound Estimated Energy Needs: KCAL: 1829 (35kcal/kg IBW) Protein (g): 78-105 (1.2-1.5g/kg IBW) Fluid (ml): 1 ml/kcal Needs based on: Kcal/kg- (Comment) (52.27kg) Recommended Access Route: PO Education needed: Wound Healing Education Provided: Yes;Handout Provided Nutrition Care Process (1) Nutrition Diagnostic Statement: Increased nutrient needs related to:: increased demands for wound healing as evidenced by:: estimated protein needs ..;estimated energy needs ..;delayed wound healing Nutrition Diagnostic Statement Progress: Nutrition problem continues Nutrition Intervention: Meals and snacks:;Medical Food Supplements: Monitoring: PO intake, labs, weight, BM Evaluation: Nutrition Goal: Total intake will meet estimated nutrient needs Nutrition Goal Timeframe: Throughout stay Nutrition Goal Progress: Continue with current goal Ascom #: [id number] [facility] * Cristin Salgado MD - 05/28/2022 2:50 PM CST GENERAL INTERNAL MEDICINE Progress note 05/28/2022 2:50 PM Admit Date: 05/19/2022 Interval History: I'm doing ok No major complaints today by patient ROS neg for fever/chills, +chronic constipation Medications:: MAR reviewed Physical Examination: BP 128/54 Pulse 84 Temp 97.3 ??F (36.3 ??C) Resp 18 Ht 1.626 m (5' 4 ) Wt 85.1 kg (187 lb10.5 oz) SpO2 96% GEN: awake, alert, NAD elderly woman HEENT: MMM, NC/AT, conjunctiva clear NECK: supple, trachea midline LUNGS: nonlabored respiratory pattern, LCAB w/o wheeze/rhonchi/rale CV: RRR, normal heart sounds, no edema ABD: soft, +BS, distended NEURO: awake, conversant, generalized deconditioning PSYCH: cooperative, appropriate mood/affect SKIN: warm, dry Labs: Relevant labs reviewed, notable by me for low phos levels, stable mild hypercalcemia, renal function nml, WBC 15 Radiology: Relevant imaging reviewed. Assessment:81 year old female with past medical history significant for HTN, DM II, Afib, DVT/PE onApixaban, hereditary spastic paraplegia, MS, neurogenic bladder with chronic schmitt catheter??who presented for abdominal distension. ?? 1. Chronic constipation: 2/2 to neurogenic bowel, with ileus, start senna and miralax,??home linzess resumed, enema PRN ?? 2. Acute encephalopathy: improving, 2/2 to UTI, monitor ?? 3. UTI:?? -urine culture with urogentinal rebeka??on 05/20/22, however urine culture from OSH 05/19/22 (collected from flushed schmitt port) requested and grew proteus and pseudomonas with intermediate resistance to cefepime and CTX -was on zosyn which was transitioned to ceftriaxone -blood culture??from OSH 05/19/22??without growth -continue??Meropenem??(EOT 05/29) per??ID, will need to complete inpatient since NH cannot accommodate this per SW ?? 4. DM2: continue insulin sliding scale and hypoglycemia protocol ?? 5.Primary hyperparathyroidism: monitor Ca and Phos ?? 6. Sacral pressure wound, unstageable, present on admit: wound care and pressure offloading 7.Hx of MS and neurogenic bladder: continue schmitt, follow up with outpatient urology ?? 8. Hx of PE/DVT: continue eliquis ?? 9. Hypothyroidism: TSH wnl, resume synthroid? 10. Paroxysmal afib: rate controlled,??spoke with Dr. Valencia outpatient foreign exchange student coordinator and confirms that patient needs to be on flecainide 50 mg BID,??hold verapamil due to rate controlled ? DVT PPx: apixaban Code Status: full Disposition: Back to nursing facility once IV abx complete (05/30/22) Cristin Salgado MD General Internal Medicine 05/28/2022 2:50 PM [facility] * Bonny Gonzalez, PT - 05/28/2022 11:29 AM CST [facility] Physical Therapy Progress Note Patient: Loc [facility] Record Number: [id number] Date of : 1940 Age: [age] year old PPE worn by staff: mask - procedural;gloves PPE worn by patient: gown - patient, clean;socks - clean Tech: n/a Discharge Recommendation: Patient will benefit from multidisciplinary inpatient therapies. SUBJECTIVE: Subjective: Patient states she uses a w/c at the care home; says the staff uses a machine that assists her to stand to get from bed to/from wheelchair my legs don't work Pain Assessment: Pain Rating Score #: 0 (denies pain right now. occasional pain in R leg ) Follow-up for pain: No follow-up for pain indicated and patient agreed to proceed with treatment PRECAUTIONS: Activity Level: Up ad kathryn OBJECTIVE: At start of therapy session, patient found in bed and with no alarm General Appearance: elderly adult female, in bed, head elevated, eating lunch LDAs: IV's: Peripheral line and Catheter Vitals: (*Assess the 3 levels of oxygen saturations both for room air and 02 unless rest on room air is 88% or less). Rest BP: 129/49 HR: 83 Sp02 Sp02 97% Room Air L O2 Ex/Gait/Activity Without 02 BP: HR: Sp02 Room Air Ex/Gait/Activity With 02 BP: HR: Sp02 L O2 Post Activity BP: 127/52 HR: 83 Sp02 Sp02 96% Room Air Observations: patient reports dizziness when seated EOB; unable to obtain seated vital signs due todecreased balance at EOB, PT unable to step away from patient to reach the monitor Mental Status/Cognition: Level of Consciousness-Adult: Alert;Eyes Open Spontaneously Orientation Level: Oriented to Person;Oriented to Place;Oriented to Time (able to state month and year; pleasant and cooperative) Cognition: Follows Commands-Consistent Attention Span: Appears intact Following Commands: Follows one step commands consistently (some repetition due to [place]) Safety Judgement: Good awareness of safety precautions Mobility: A gait belt and non-slip socks were used for all out of bed activity this date. Bed Mobility: Supine to Sit: Maximum Assistance Sit to Supine: Maximum Assistance Transfers: Sit to Stand: Activity Does Not Occur (not attempted due to dizziness and decreased sitting balance) Balance: Sitting - Static: Poor +;With One Upper Extremity Support Sitting - Dynamic: Poor Patient sits EOB with UE support, poor balance (air mattress not supportive for sitting balance) ACTIVITY TOLERANCE: Patient's activity tolerance: fair TREATMENT/INTERVENTIONS: PROM bilateral LE's, bed mobility training, balance activities and monitoring of vitals EDUCATION: While performing PT, Patient was instructed in:functional mobility training, safety awareness/fall precautions , discharge planning, use of call light Presented to patient who demonstrates Good understanding of instructions given. ASSESSMENT: Patient would benefit from additional Physical Therapy sessions to achieve the following functionalgoals to enhance independence. Short Term Goals: Goal Formation With patient Patient will perform bed mobility with maximal assist and X 2 MET Patient will demonstrate fair static/dynamic sitting balance Patient will follow 100% of single step commands MET Patient will perform supine to/from sitting with moderate assist Halfway Goal(s): Patient to discharge to appropriate next level of inpatient care. INFORMED CONSENT TO TREATMENT: Plan of care including recommended therapy, goals and frequency, discussed with patient who understands and agrees to proceed. Equipment Issued: none Plan: Patient continues to benefit from skilled therapy services., Goals updated this date. If patient is discharged from the facility, this note serves as a discharge summary if further physical therapy visits did not occur. Refer to filed flowsheet for further details. Following therapy session, patient left in bed, with call light within reach, with therapy cues visible on white board. [facility] * Gricel Valdez - 05/28/2022 10:35 AM CST SW provided an updated to admissions at [facility]. They can accept the patient back after IV abx. They are aware that the patient's anticipated d/c is 03/30. ALEX set up [facility] Crew for 03/30 at 10:30am. JORGE Swan 05/28/[phone] [facility] * Senthil Hoffman RN - 05/28/2022 2:37 AM CST Problem: Fall Risk Goal: Fall risk and fall related injury risk are minimized (interventions related to the fall risk can be found in the flowsheet documentation) Outcome: Progressing Problem: Skin Integrity Goal: Skin integrity is maintained or improved Outcome: Progressing Problem: Pain/Discomfort Goal: Patient exhibits reduced pain/discomfort as evidenced by pain scores Outcome: Progressing Goal: Patient uses pharmacological and non-pharmacological pain management strategies. Outcome: Progressing Goal: Patient verbalizes acceptable level of pain relief and ability to engage in desired activity. Outcome: Progressing Problem: Tissue injury due to various disease processes Goal: Provide optimal wound healing environment Outcome: Progressing Problem: Tissue Injury due to Inadequate Arterial Perfusion Goal: Maintain Clean/Stable wound environment Outcome: Progressing Problem: Tissue Injury due to Venous Hypertension Goal: Maintain Infection Free Stable Wound Environment Outcome: Progressing Problem: Tissue Injury Due to Loss of Protective Sensation Goal: Protect Injured Tissue and Prevent Further Injury Outcome: Progressing Problem: Tissue Injury Due to External Forces of Pressure, Friction, and Shear Goal: Protect Skin from External Forces Outcome: Progressing Goal: Maintain and Improve Tissue Tolerance to Pressure Outcome: Progressing Problem: Nutrient: Increased nutrient needs (specify) Goal: Total intake will meet estimated nutrient needs Outcome: Progressing Problem: Infection Goal: Signs and symptoms of infections are decreased or avoided Outcome: Progressing Problem: Daily Care Goal: Daily care needs are met Outcome: Progressing [facility] * Timbo France RN - 05/27/2022 4:07 PM CST Images from the original note were not included. 05/27/22 1004 Pressure Injury Sacrum Assessment Date: 05/19/22 Present on admission?: Yes Dish Up Person Related?: No Location: Sacrum Wound Image Wound Bed Assessment Black;Deep purple;Brown;Burgundy;Pale/Non-granular Exudate Description Scant Wound Margin Undefined edges Length (Cm) 12 CM Width (Cm) 17 CM Depth (Cm) 1 CM Tunneling (record depth in CM and clock location) 0 Undermining (record depth and clock location) 1 at 6 o'clock Staging (Pressure Ulcers only) Unstageable Erica-wound Skin Assessment Maceration;Erythema/Red Dressing/Treatment Cleansed;Hydrophilic;Dry dressing Dressing Status Changed Photo taken Yes - see Notes Follow up on this patient for reassessment of wound and plan of care update. Wound to sacrum, present on admission Current wound care Triad with gauze and Triad packing The wound appears mostly unchanged, debridement over the center of wound is slowly progressing, nowwith undermining - see above for details. Recommendations: ??? Frequent turns ??? Continue dolphin bed, avoid supine/semifowler positioning ??? Use pillows or positioning wedge (avoid positioning directly on trochanter when using side lying position) ??? Keep HOB below 30 degrees when medically feasible ??? Reduce Friction/Shear - Lift patient in bed with sheet or pad. DO NOT PULL OR DRAG ??? Single layer flat sheet for turning/microturns ??? Clean sacral wound with NS, dry, pack the deep open mid area with Triad and 4 x 4 gauze, apply Triad to the shallow wound parts, cover with ABD pad. Change daily and prn when soiled. ??? Off load heels with heel boots if patient cannot move legs spontaneously ??? Moisture/incontinence protection - dry skin well, apply protective barrier cream/ointment bid and prn Care above completed, patient repositioned to her right side with 2 pink wedges, nurse Mi notified. Re consult with any new needs. [facility] * Mi Potter RN - 05/27/2022 3:48 PM CST Problem: Fall Risk Goal: Fall risk and fall related injury risk are minimized (interventions related to the fall risk can be found in the flowsheet documentation) Outcome: Progressing Problem: Skin Integrity Goal: Skin integrity is maintained or improved Outcome: Progressing Problem: Pain/Discomfort Goal: Patient exhibits reduced pain/discomfort as evidenced by pain scores Outcome: Progressing Patient has no current falls, bedbound, fall implementations in place. No current reports of pain. Patient has a schmitt cath and is on a turn schedule to minimize further skin breakdown. [facility] * Stephenie Zuniga - 05/27/2022 12:12 PM CST New patient to caseload in the absence of the primary Truck Driver Instructor Chart reviewed Not medically ready to transition to next level of care Post acute recommendation: Multidisciplinary Inpatient Therapies Patient is a [facility] resident of [facility] ([id number] [id number]) Barrier to discharge: Pt to complete Meropenem??(EOT 05/29) inpatient; facility cannot accomondate JORGE Roger, LESTER Covering Truck Driver Instructor [phone] 05/27/2022 12:13 PM [facility] * Mich Nolan MD - 05/27/2022 10:53 AM CST [facility] Progress Note Name: Loc [facility] Age: [age] year old Room: 829/ Date Admitted: 05/19/2022 Chief Complaint: Abdominal distension Subjective: Patient was seen and examined at bedside. Denies headaches, dizziness, shortness of breath, nausea, abdominal pain. Objective: Vitals: 05/26/22 1646 05/26/22 1941 05/27/22 0009 05/27/22 0339 BP: 123/52 128/50 108/54 119/55 Pulse: 85 78 77 76 Resp: 16 18 18 18 Temp: 98.7 ??F (37.1 ??C) 97.5 ??F (36.4 ??C) 98.5 ??F (36.9 ??C) 97.6 ??F (36.4 ??C) SpO2: 97% 97% 95% 95% Weight: Height: Estimated body mass index is 32.21 kg/m?? as calculated from the following: Height as of this encounter: 1.626 m (5' 4 ). Weight as of this encounter: 85.1 kg (187 lb 10.5 oz). Physical Exam: General: Alert, cooperative, NAD Skin: No rashes or lesions noted HEENT: NC,AT, PERRL, EOMI, Mucous membranes??moist Neck: Supple, no JVD Heart: RRR, normal S1 and S2 Lungs: Clear to auscultation. No wheezes, rales or rhonchi Abdomen: Soft, non-tender, normal bowel sounds. No masses Extremities: No edema Pulses: 2+ and symmetric MSKL: Normal bulk and tone. Intact ROM in all extremities Neuro: Alert and oriented X??3 Labs: Recent Labs Component Name 05/27/22 0639 05/20/22 0948 05/20/22 0336 WBC 14.9* - 20.8* HGB 11.9* - 11.7* HCT 37.2 - 35.7 NA 139 - 148* CL 110* - 114* BUN 19 - 24 CREATININE 0.46* - 0.58 PHOS 1.7* - - CALCIUM 10.1 - 9.8 PT 17.6* - - INR 1.4 - - AST - - 12 ALT - - 12 ALKPHOS - - 65 TBILI - - 0.3 - = values in this interval not displayed. Imaging: No results found. HTN (hypertension) POA: Yes Type 2 diabetes mellitus without complication (CMS/HCC) POA: Yes HSP (hereditary spastic paraplegia) (CMS/HCC) POA: Yes Urinary tract infection associated with indwelling urethral catheter (CMS/HCC) POA: Yes Chronic diastolic CHF (congestive heart failure) (CMS/HCC) POA: Yes Chronic idiopathic constipation POA: Yes Hyperparathyroidism (CMS/HCC) POA: Yes Atrial fibrillation (CMS/HCC) POA: Yes Wheelchair bound POA: Yes Encephalopathy POA: Yes Chronic indwelling Schmitt catheter POA: Yes Ileus (CMS/HCC) POA: Yes Hypokalemia POA: Yes Hypernatremia POA: Yes 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 POA: Yes Assessment and Plan: 81 year old female with past medical history significant for HTN, DM II, Afib, DVT/PE on Apixaban, hereditary spastic paraplegia, MS, neurogenic bladder with chronic schmitt catheter??who presented forabdominal distension 1. Chronic constipation: 2/2 to neurogenic bowel, with ileus, start senna and miralax,??home linzess resumed,??NG tube discontinued, Cdiff negative,??HOG enema today ?? 2. Acute encephalopathy: improving, 2/2 to UTI, monitor ?? 3. UTI:?? -urine culture with urogentinal rebeka??on 05/20/22, however urine culture from OSH 05/19/22 (collected from flushed schmitt port) requested and grew proteus and pseudomonas with intermediate resistance to cefepime and CTX -was on zosyn which was transitioned to ceftriaxone -blood culture??from OSH 05/19/22??without growth -continue??Meropenem??(EOT 05/29) per??ID, will need to complete inpatient since NH cannot accommodate this per SW ?? 4. DM2: continue insulin sliding scale and hypoglycemia protocol ?? 6. Hx of breast cancer: s/p lumpectomy ?? 7. Primary hyperparathyroidism: monitor Ca and Phos ?? 8. Hx of MS and neurogenic bladder: continue schmitt, follow up with outpatient urology ?? 9. Hx of PE/DVT: continue eliquis ?? 10. Hypothyroidism: TSH wnl, resume synthroid? 11. Paroxysmal afib: rate controlled,??spoke with Dr. Valencia outpatient foreign exchange student coordinator and confirms that patient needs to be on flecainide 50 mg BID,??hold verapamil due to rate controlled ?? 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 Updates to disposition plan discussed with??social work and case management. Approximately??35??minutes was spent reviewing medical records including laboratory/imaging data, discussing disposition plan with care coordination team and updating nursing staff regarding changes to care plan. Greater than 50% of the time was spent performing care coordination. [facility] * Mich Nolan MD - 05/26/2022 8:31 AM CST [facility] Name: Loc Anderson Age: [age] year old Room: 829/01 Date Admitted: 05/19/2022 Chief Complaint: Abdominal distension ?? Subjective: Patient was seen and examined at bedside. Denies headaches, dizziness, shortness of breath, nausea, abdominal pain. Objective: Vitals: 05/25/22 0849 05/25/22 1947 05/25/22 2337 05/26/22 0405 BP: 125/56 125/51 115/51 124/46 Pulse: 79 82 80 75 Resp: 18 18 18 18 Temp: 97.8 ??F (36.6 ??C) 98.4 ??F (36.9 ??C) 97.5 ??F (36.4 ??C) 98.3 ??F (36.8 ??C) SpO2: 93% 93% 94% Weight: Height: Estimated body mass index is 32.21 kg/m?? as calculated from the following: Height as of this encounter: 1.626 m (5' 4 ). Weight as of this encounter: 85.1 kg (187 lb 10.5 oz). Physical Exam: General: Alert, cooperative, NAD Skin: No rashes or lesions noted HEENT: NC,AT, PERRL, EOMI, Mucous membranes??moist Neck: Supple, no JVD Heart: RRR, normal S1 and S2 Lungs: Clear to auscultation. No wheezes, rales or rhonchi Abdomen: Soft, non-tender, normal bowel sounds. No masses Extremities: No edema Pulses: 2+ and symmetric MSKL: Normal bulk and tone. Intact ROM in all extremities Neuro: Alert and oriented X??3 Labs: Recent Labs Component Name 05/26/22 0642 05/20/22 0948 05/20/22 0336 WBC 14.1* - 20.8* HGB 12.1 - 11.7* HCT 37.4 - 35.7 NA 139 - 148* CL 113* - 114* BUN 19 - 24 CREATININE 0.50* - 0.58 PHOS 1.8* - - CALCIUM 9.9 - 9.8 PT 15.0* - - INR 1.2 - - AST - - 12 ALT - - 12 ALKPHOS - - 65 TBILI - - 0.3 - = values in this interval not displayed. Imaging: No results found. HTN (hypertension) POA: Yes Type 2 diabetes mellitus without complication (CMS/HCC) POA: Yes HSP (hereditary spastic paraplegia) (CMS/HCC) POA: Yes Urinary tract infection associated with indwelling urethral catheter (CMS/HCC) POA: Yes Chronic diastolic CHF (congestive heart failure) (CMS/HCC) POA: Yes Chronic idiopathic constipation POA: Yes Hyperparathyroidism (CMS/HCC) POA: Yes Atrial fibrillation (CMS/HCC) POA: Yes Wheelchair bound POA: Yes Encephalopathy POA: Yes Chronic indwelling Schmitt catheter POA: Yes Ileus (CMS/HCC) POA: Yes Hypokalemia POA: Yes Hypernatremia POA: Yes 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 POA: Yes Assessment and Plan: 81 year old female with past medical history significant for HTN, DM II, Afib, DVT/PE on Apixaban, hereditary spastic paraplegia, MS, neurogenic bladder with chronic schmitt catheter??who presented forabdominal distension 1. Chronic constipation: with ileus, start senna and miralax,??home linzess resumed,??NG tube discontinued, Cdiff negative, HOG enema today, advanced to regular diet ?? 2. Acute encephalopathy: improving, 2/2 to UTI, monitor ?? 3. UTI:?? -urine culture with urogentinal rebeka??on 05/20/22, however urine culture from OSH 05/19/22 (collected from flushed schmitt port) requested and grew proteus and pseudomonas with intermediate resistance to cefepime and CTX -was on zosyn which was transitioned to ceftriaxone -blood culture??from OSH 05/19/22??without growth to date -continue??Meropenem??(EOT 05/29) per??ID, will need to complete inpatient since NH cannot accommodate this per SW ?? 4. DM2: continue insulin sliding scale and hypoglycemia protocol ?? 6. Hx of breast cancer: s/p lumpectomy ?? 7. Primary hyperparathyroidism: monitor Ca and Phos ?? 8. Hx of MS and neurogenic bladder: continue schmitt, follow up with outpatient urology ?? 9. Hx of PE/DVT: continue eliquis ?? 10. Hypothyroidism: TSH wnl, resume synthroid? 11. Paroxysmal afib: rate controlled,??spoke with Dr. Valencia outpatient foreign exchange student coordinator and confirms that patient needs to be on flecainide 50 mg BID,??hold verapamil due to rate controlled ?? 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 Updates to disposition plan discussed with??social work and case management. Approximately??35??minutes was spent reviewing medical records including laboratory/imaging data, discussing disposition plan with care coordination team and updating nursing staff regarding changes to care plan. Greater than 50% of the time was spent performing care coordination. [facility] * Mich Nolan MD - 05/25/2022 9:19 AM CST Hospital Medicine Progress Note Name: Loc Anderson Age: [age] year old Room: 829/01 Date Admitted: 05/19/2022 Chief Complaint: Abdominal distension Subjective: Patient was seen and examined at bedside. Denies headaches, dizziness, shortness of breath, nausea, abdominal pain. Objective: Vitals: 05/24/22 1100 05/24/22 1954 05/25/22 0418 05/25/22 0849 BP: 120/52 116/46 123/55 125/56 Pulse: 88 83 72 79 Resp: 18 18 16 18 Temp: 98.4 ??F (36.9 ??C) 98.9 ??F (37.2 ??C) 98.3 ??F (36.8 ??C) 97.8 ??F (36.6 ??C) SpO2: 96% 93% 95% Weight: Height: Estimated body mass index is 32.21 kg/m?? as calculated from the following: Height as of this encounter: 1.626 m (5' 4 ). Weight as of this encounter: 85.1 kg (187 lb 10.5 oz). Physical Exam: General: Alert, cooperative, NAD Skin: No rashes or lesions noted HEENT: NC,AT, PERRL, EOMI, Mucous membranes??moist Neck: Supple, no JVD Heart: RRR, normal S1 and S2 Lungs: Clear to auscultation. No wheezes, rales or rhonchi Abdomen: Soft, non-tender, normal bowel sounds. No masses Extremities: No edema Pulses: 2+ and symmetric MSKL: Normal bulk and tone. Intact ROM in all extremities Neuro: Alert and oriented X??2 Labs: Recent Labs Component Name 05/25/22 0629 05/20/22 0948 05/20/22 0336 WBC 15.6* - 20.8* HGB 12.9 - 11.7* HCT 39.8 - 35.7 NA 136 - 148* CL 106 - 114* BUN 18 - 24 CREATININE 0.61 - 0.58 PHOS 2.3* - - CALCIUM 10.7* - 9.8 PT 15.8* - - INR 1.3 - - AST - - 12 ALT - - 12 ALKPHOS - - 65 TBILI - - 0.3 - = values in this interval not displayed. Imaging: No results found. HTN (hypertension) POA: Yes Type 2 diabetes mellitus without complication (CMS/HCC) POA: Yes HSP (hereditary spastic paraplegia) (CMS/HCC) POA: Yes Urinary tract infection associated with indwelling urethral catheter (CMS/HCC) POA: Yes Chronic diastolic CHF (congestive heart failure) (CMS/HCC) POA: Yes Chronic idiopathic constipation POA: Yes Hyperparathyroidism (CMS/HCC) POA: Yes Atrial fibrillation (CMS/HCC) POA: Yes Wheelchair bound POA: Yes Encephalopathy POA: Yes Chronic indwelling Schmitt catheter POA: Yes Ileus (CMS/HCC) POA: Yes Hypokalemia POA: Yes Hypernatremia POA: Yes 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 POA: Yes Assessment and Plan: 81 year old female with past medical history significant for HTN, DM II, Afib, DVT/PE on Apixaban, hereditary spastic paraplegia, MS, neurogenic bladder with chronic schmitt catheter??who presented forabdominal distension 1. Chronic constipation: with ileus, start senna and miralax,??home linzess resumed,??NG tube discontinued, Cdiff negative, HOG enema today, advanced to regular diet ?? 2. Acute encephalopathy: improving, 2/2 to UTI, monitor ?? 3. UTI:?? -urine culture with urogentinal rebeka??on 05/20/22, however urine culture from OSH 05/19/22 (collected from flushed schmitt port) requested and grew proteus and pseudomonas with intermediate resistance to cefepime and CTX -was on zosyn which was transitioned to ceftriaxone -blood culture??from OSH 05/19/22??without growth to date -continue Meropenem (EOT 05/29) per ID, will need to complete inpatient since NH cannot accommodate this per SW ?? 4. DM2: continue insulin sliding scale and hypoglycemia protocol ?? 6. Hx of breast cancer: s/p lumpectomy ?? 7. Primary hyperparathyroidism: monitor Ca and Phos ?? 8. Hx of MS and neurogenic bladder: continue schmitt, follow up with outpatient urology ?? 9. Hx of PE/DVT: continue eliquis ?? 10. Hypothyroidism: TSH wnl, resume synthroid? 11. Paroxysmal afib: rate controlled,??spoke with Dr. Valencia outpatient foreign exchange student coordinator and confirms that patient needs to be on flecainide 50 mg BID,??hold verapamil due to rate controlled ?? 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 Updates to disposition plan discussed with??social work and case management. Approximately??35??minutes was spent reviewing medical records including laboratory/imaging data, discussing disposition plan with care coordination team and updating nursing staff regarding changes to care plan. Greater than 50% of the time was spent performing care coordination. [facility] * Kami Muniz RN - 05/25/2022 9:09 AM CST Problem: Fall Risk Goal: Fall risk and fall related injury risk are minimized (interventions related to the fall risk can be found in the flowsheet documentation) Outcome: Progressing Problem: Skin Integrity Goal: Skin integrity is maintained or improved Outcome: Progressing Problem: Safety related to restraint use Goal: Absence of injury while restrained Outcome: Progressing Problem: Pain/Discomfort Goal: Patient exhibits reduced pain/discomfort as evidenced by pain scores Outcome: Progressing Goal: Patient uses pharmacological and non-pharmacological pain management strategies. Outcome: Progressing Goal: Patient verbalizes acceptable level of pain relief and ability to engage in desired activity. Outcome: Progressing Problem: Tissue injury due to various disease processes Goal: Provide optimal wound healing environment Outcome: Progressing Problem: Tissue Injury due to Inadequate Arterial Perfusion Goal: Maintain Clean/Stable wound environment Outcome: Progressing Problem: Tissue Injury due to Venous Hypertension Goal: Maintain Infection Free Stable Wound Environment Outcome: Progressing Problem: Tissue Injury Due to Loss of Protective Sensation Goal: Protect Injured Tissue and Prevent Further Injury Outcome: Progressing Problem: Tissue Injury Due to External Forces of Pressure, Friction, and Shear Goal: Protect Skin from External Forces Outcome: Progressing Goal: Maintain and Improve Tissue Tolerance to Pressure Outcome: Progressing Problem: Nutrient: Increased nutrient needs (specify) Goal: Total intake will meet estimated nutrient needs Outcome: Progressing Problem: Infection Goal: Signs and symptoms of infections are decreased or avoided Outcome: Progressing Problem: Daily Care Goal: Daily care needs are met Outcome: Progressing Problem: Hemodynamic Status/Cardiac Output Goal: Patient has stable vital signs and fluid balance Outcome: Progressing Problem: Balance Goal: LTG - Patient will demonstrate Intervention to enhance balance for safe completion of daily activities Outcome: Progressing Goal: LTG - Patient will maintain balance to allow for safe mobility Outcome: Progressing Problem: Discharge Planning Goal: Patient's continuum of care needs are met Outcome: Progressing [facility] * Alice Reed RN - 05/24/2022 10:23 AM CST Case Management Progress Note Anticipated level of care at discharge: Care Home - Non Skilled Patient is on IV abx and is still receiving medical management for gastric outlet obstruction. Patient is from a SNF. SW following for placement. Basic Needs Assessment (BNA) Score: n/a Anticipated Discharge Date: 05/28/22 Transportation at Discharge: Ambulance Transportation to MD: Equipment at Home: Equipment at Home: Facility Equipment Additional DME needed: Name: Alice Reed RN Case Manager [phone] [facility] * Mich Nolan MD - 05/24/2022 9:37 AM CST [facility] Name: Loc Anderson Age: [age] year old Room: 829/01 Date Admitted: 05/19/2022 Chief Complaint: Abdominal distension Subjective: Patient was seen and examined at bedside. Denies headaches, dizziness, shortness of breath, nausea, abdominal pain. Objective: Vitals: 05/23/22 1956 05/24/22 0001 05/24/22 0348 05/24/22 0925 BP: 103/42 122/55 105/51 106/48 Pulse: 84 81 77 81 Resp: 18 20 18 18 Temp: 98.4 ??F (36.9 ??C) 97.5 ??F (36.4 ??C) 98.5 ??F (36.9 ??C) 97.8 ??F (36.6 ??C) SpO2: 94% 95% 96% Weight: Height: Estimated body mass index is 32.21 kg/m?? as calculated from the following: Height as of this encounter: 1.626 m (5' 4 ). Weight as of this encounter: 85.1 kg (187 lb 10.5 oz). Physical Exam: General: Alert, cooperative, NAD Skin: No rashes or lesions noted HEENT: NC,AT, PERRL, EOMI, Mucous membranes moist Neck: Supple, no JVD Heart: RRR, normal S1 and S2 Lungs: Clear to auscultation. No wheezes, rales or rhonchi Abdomen: Soft, non-tender, normal bowel sounds. No masses Extremities: No edema Pulses: 2+ and symmetric MSKL: Normal bulk and tone. Intact ROM in all extremities Neuro: Alert and oriented X 2 Labs: Recent Labs Component Name 05/24/22 0613 05/20/22 0948 05/20/22 0336 WBC 15.0* - 20.8* HGB 12.3 - 11.7* HCT 38.1 - 35.7 NA 137 - 148* CL 109* - 114* BUN 16 - 24 CREATININE 0.55* - 0.58 PHOS 2.4* - - CALCIUM 10.5* - 9.8 PT 17.6* - - INR 1.4 - - AST - - 12 ALT - - 12 ALKPHOS - - 65 TBILI - - 0.3 - = values in this interval not displayed. Imaging: XR ABDOMEN KUB PORTABLE Result Date: 05/22/2022 IMPRESSION: Nonobstructive bowel gas pattern. Large volume of stool within the colon. Report dictated by Derrek Dixon M.D. (radiology administrator) I, Garret Velasco MD have personally reviewed and interpreted this examination/study. > Interpreting Provider: Garret Velasco MD on 05/22/2022 9:26 PM HTN (hypertension) POA: Yes Type 2 diabetes mellitus without complication (CMS/HCC) POA: Yes HSP (hereditary spastic paraplegia) (CMS/HCC) POA: Yes Urinary tract infection associated with indwelling urethral catheter (CMS/HCC) POA: Yes Chronic diastolic CHF (congestive heart failure) (CMS/HCC) POA: Yes Chronic idiopathic constipation POA: Yes Hyperparathyroidism (CMS/HCC) POA: Yes Atrial fibrillation (CMS/HCC) POA: Yes Wheelchair bound POA: Yes Encephalopathy POA: Yes Chronic indwelling Schmitt catheter POA: Yes Ileus (CMS/HCC) POA: Yes Hypokalemia POA: Yes Hypernatremia POA: Yes 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 POA: Yes Assessment and Plan: 81 year old female with past medical history significant for HTN, DM II, Afib, DVT/PE on Apixaban, hereditary spastic paraplegia, MS, neurogenic bladder with chronic schmitt catheter??who presented forabdominal distension 1. Chronic constipation: with ileus, start senna and miralax, home linzess resumed, NG tube discontinued, Cdiff negative, advanced to regular diet ?? 2. Acute encephalopathy: improving, 2/2 to UTI, monitor ?? 3. UTI: -urine culture with urogentinal rebeka on 05/20/22, however urine culture from OSH 05/19/22 (collected from flushed schmitt port) requested and grew proteus and pseudomonas with intermediate resistance to cefepime and CTX -was on zosyn which was transitioned to ceftriaxone -blood culture from OSH 05/19/22 without growth to date -continue Meropenem (EOT 03/19) per ID ?? 4. DM2: continue insulin sliding scale and hypoglycemia protocol ?? 6. Hx of breast cancer: s/p lumpectomy ?? 7. Primary hyperparathyroidism: monitor Ca and Phos ?? 8. Hx of MS and neurogenic bladder: continue schmitt, follow up with outpatient urology ?? 9. Hx of PE/DVT: continue eliquis ?? 10. Hypothyroidism: TSH wnl, resume synthroid ?? 11. Paroxysmal afib: rate controlled, spoke with Dr. Valencia outpatient foreign exchange student coordinator and confirms that patient needs to be on flecainide 50 mg BID, hold verapamil due to rate controlled ?? 12. Hx of hereditary spastic paraplegia Lines: PIV Disposition: Inpatient Diet: Regular Prophylaxis: eliquis Code: Full Mich Nolan MD Hospitalist, Internal Medicine Nursing staff updated with changes to care plan. Updates to disposition plan discussed with social work and case management. Approximately 35 minutes was spent reviewing medical records including laboratory/imaging data, discussing disposition plan with care coordination team and updating nursing staff regarding changes tocare plan. Greater than 50% of the time was spent performing care coordination. [facility] * Kami Muniz RN - 05/24/2022 7:51 AM CST Problem: Fall Risk Goal: Fall risk and fall related injury risk are minimized (interventions related to the fall risk can be found in the flowsheet documentation) Outcome: Progressing Problem: Skin Integrity Goal: Skin integrity is maintained or improved Outcome: Progressing Problem: Safety related to restraint use Goal: Absence of injury while restrained Outcome: Progressing Problem: Pain/Discomfort Goal: Patient exhibits reduced pain/discomfort as evidenced by pain scores Outcome: Progressing Goal: Patient uses pharmacological and non-pharmacological pain management strategies. Outcome: Progressing Goal: Patient verbalizes acceptable level of pain relief and ability to engage in desired activity. Outcome: Progressing Problem: Tissue injury due to various disease processes Goal: Provide optimal wound healing environment Outcome: Progressing Problem: Tissue Injury due to Inadequate Arterial Perfusion Goal: Maintain Clean/Stable wound environment Outcome: Progressing Problem: Tissue Injury due to Venous Hypertension Goal: Maintain Infection Free Stable Wound Environment Outcome: Progressing Problem: Tissue Injury Due to Loss of Protective Sensation Goal: Protect Injured Tissue and Prevent Further Injury Outcome: Progressing Problem: Tissue Injury Due to External Forces of Pressure, Friction, and Shear Goal: Protect Skin from External Forces Outcome: Progressing Goal: Maintain and Improve Tissue Tolerance to Pressure Outcome: Progressing Problem: Nutrient: Increased nutrient needs (specify) Goal: Total intake will meet estimated nutrient needs Outcome: Progressing Problem: Infection Goal: Signs and symptoms of infections are decreased or avoided Outcome: Progressing Problem: Daily Care Goal: Daily care needs are met Outcome: Progressing Problem: Hemodynamic Status/Cardiac Output Goal: Patient has stable vital signs and fluid balance Outcome: Progressing Problem: Balance Goal: LTG - Patient will demonstrate Intervention to enhance balance for safe completion of daily activities Outcome: Progressing Goal: LTG - Patient will maintain balance to allow for safe mobility Outcome: Progressing Problem: Discharge Planning Goal: Patient's continuum of care needs are met Outcome: Progressing [facility] * Dena Johnson RN - 05/23/2022 9:23 PM CST Problem: Fall Risk Goal: Fall risk and fall related injury risk are minimized (interventions related to the fall risk can be found in the flowsheet documentation) Outcome: Progressing Problem: Skin Integrity Goal: Skin integrity is maintained or improved Outcome: Progressing Problem: Safety related to restraint use Goal: Absence of injury while restrained Outcome: Progressing Problem: Pain/Discomfort Goal: Patient exhibits reduced pain/discomfort as evidenced by pain scores Outcome: Progressing Goal: Patient uses pharmacological and non-pharmacological pain management strategies. Outcome: Progressing Goal: Patient verbalizes acceptable level of pain relief and ability to engage in desired activity. Outcome: Progressing Problem: Tissue injury due to various disease processes Goal: Provide optimal wound healing environment Outcome: Progressing Problem: Tissue Injury due to Inadequate Arterial Perfusion Goal: Maintain Clean/Stable wound environment Outcome: Progressing Problem: Tissue Injury due to Venous Hypertension Goal: Maintain Infection Free Stable Wound Environment Outcome: Progressing Problem: Tissue Injury Due to Loss of Protective Sensation Goal: Protect Injured Tissue and Prevent Further Injury Outcome: Progressing Problem: Tissue Injury Due to External Forces of Pressure, Friction, and Shear Goal: Protect Skin from External Forces Outcome: Progressing Goal: Maintain and Improve Tissue Tolerance to Pressure Outcome: Progressing Problem: Nutrient: Increased nutrient needs (specify) Goal: Total intake will meet estimated nutrient needs Outcome: Progressing Problem: Infection Goal: Signs and symptoms of infections are decreased or avoided Outcome: Progressing Problem: Daily Care Goal: Daily care needs are met Outcome: Progressing Problem: Hemodynamic Status/Cardiac Output Goal: Patient has stable vital signs and fluid balance Outcome: Progressing Problem: Discharge Planning Goal: Patient's continuum of care needs are met Outcome: Progressing Summary: Pt will verbalize pain at goal level. Continue to encourage sleep hygiene and frequent turning. Assessment of pt's baseline is established at the beginning of shift in flow sheets. Pt reassessed per order, unexpected findings and/or deviations from baseline are captured in flowsheets. Frequent safety check and comfort rounds provided. Orders or Nursing care completed as indicated. Patient monitored for response to intervention and treatment as documented in flowsheets. Will Continue tomonitor. Dena Johnson RN [facility] * Mich Nolan MD - 05/23/2022 10:13 AM CST [facility] Name: Loc Anderson Age: [age] year old Room: 829/01 Date Admitted: 05/19/2022 Chief Complaint: Abdominal distension Subjective: Patient was seen and examined at bedside. Denies headaches, dizziness, shortness of breath, nausea, abdominal pain. Updated daughter Ange Reyes about patient's clinical course. Objective: Vitals: 05/23/22 0049 05/23/22 0400 05/23/22 0423 05/23/22 0905 BP: 100/44 120/53 122/48 Pulse: 78 77 Resp: 18 Temp: 97.5 ??F (36.4 ??C) 98.6 ??F (37 ??C) 97.8 ??F (36.6 ??C) SpO2: 94% 95% Weight: 85.1 kg (187 lb 10.5 oz) Height: Estimated body mass index is 32.21 kg/m?? as calculated from the following: Height as of this encounter: 1.626 m (5' 4 ). Weight as of this encounter: 85.1 kg (187 lb 10.5 oz). Physical Exam: General: Alert, cooperative, NAD Skin: No rashes or lesions noted HEENT: NC,AT, PERRL, EOMI, Mucous membranes moist Neck: Supple, no JVD Heart: RRR, normal S1 and S2 Lungs: Clear to auscultation. No wheezes, rales or rhonchi Abdomen: Soft, non-tender, normal bowel sounds. No masses Extremities: No edema Pulses: 2+ and symmetric MSKL: Normal bulk and tone. Intact ROM in all extremities Neuro: Alert and oriented X 2 Labs: Recent Labs Component Name 05/23/22 0559 05/20/22 0948 05/20/22 0336 WBC 13.3* - 20.8* HGB 11.5* - 11.7* HCT 34.6* - 35.7 NA 141 - 148* CL 110* - 114* BUN 9 - 24 CREATININE 0.47* - 0.58 PHOS 2.8* - - CALCIUM 9.9 - 9.8 PT 17.6* - - INR 1.4 - - AST - - 12 ALT - - 12 ALKPHOS - - 65 TBILI - - 0.3 - = values in this interval not displayed. Imaging: CT HEAD WO CONTRAST Result Date: 05/20/2022 IMPRESSION: No acute intracranial abnormality. Report dictated by Gareth Peraza MD (radiology administrator) Kari Nascimento MD have personally reviewed and interpreted this examination/study. > Interpreting Provider: Kari Reynoso MD on 05/20/2022 1:36 PM XR ABDOMEN KUB PORTABLE Result Date: 05/22/2022 IMPRESSION: Nonobstructive bowel gas pattern. Large volume of stool within the colon. Report dictated by Derrek Dixon M.D. (radiology administrator) Garret Nascimento MD have personally reviewed and interpreted this examination/study. > Interpreting Provider: Garret Velasco MD on 05/22/2022 9:26 PM HTN (hypertension) POA: Yes Type 2 diabetes mellitus without complication (CMS/HCC) POA: Yes HSP (hereditary spastic paraplegia) (CMS/HCC) POA: Yes Urinary tract infection associated with indwelling urethral catheter (CMS/HCC) POA: Yes Chronic diastolic CHF (congestive heart failure) (CMS/HCC) POA: Yes Chronic idiopathic constipation POA: Yes Hyperparathyroidism (CMS/HCC) POA: Yes Atrial fibrillation (CMS/HCC) POA: Yes Wheelchair bound POA: Yes Encephalopathy POA: Yes Chronic indwelling Schmitt catheter POA: Yes Ileus (CMS/HCC) POA: Yes Hypokalemia POA: Yes Hypernatremia POA: Yes 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 POA: Yes Assessment and Plan: 81 year old female with past medical history significant for HTN, DM II, Afib, DVT/PE on Apixaban, hereditary spastic paraplegia, MS, neurogenic bladder with chronic schmitt catheter who presented for abdominal distension 1. Chronic constipation: with ileus, start senna and miralax, home linzess resumed, NG tube discontinued, Cdiff negative, advanced to regular diet ?? 2. Acute encephalopathy: improving, 2/2 to UTI, monitor ?? 3. UTI: -urine culture with urogentinal rebeka on 05/20/22, however urine culture from OSH 05/19/22 (collected from flushed schmitt port) requested and grew proteus and pseudomonas with intermediate resistance to cefepime and CTX -was on zosyn which was transitioned to ceftriaxone -blood culture from OSH 05/19/22 without growth to date -start Meropenem, repeat UA and consult ID ?? 4. DM2: continue insulin sliding scale and hypoglycemia protocol ?? 6. Hx of breast cancer: s/p lumpectomy ?? 7. Primary hyperparathyroidism: monitor Ca and Phos ?? 8. Hx of MS and neurogenic bladder, ?? 9. Hx of PE/DVT: continue eliquis ?? 10. Hypothyroidism: TSH wnl, resume synthroid 11. Paroxysmal afib: rate controlled, spoke with Dr. Valencia outpatient foreign exchange student coordinator and confirms that patient needs to be on flecainide 50 mg BID, hold verapamil due to rate controlled 12. Hx of hereditary spastic paraplegia Lines: PIV Disposition: Inpatient Diet: Regular Prophylaxis: eliquis Code: Full Mich Nolan MD Hospitalist, Internal Medicine Nursing staff updated with changes to care plan. Updates to disposition plan discussed with social work and case management. Approximately 35 minutes was spent reviewing medical records including laboratory/imaging data, discussing disposition plan with care coordination team and updating nursing staff regarding changes tocare plan. Greater than 50% of the time was spent performing care coordination. [facility] * Brandi Levine, PT - 05/23/2022 9:58 AM CST [facility] Physical Therapy Initial Evaluation Note Patient: Loc [facility] Record Number: [id number] Date of : 1940 Age: [age] year old PPE worn by staff: goggles;mask - procedural PPE worn by patient: gown - patient, clean;socks - clean COTX w/ OT due to level of skilled assist required anticipated Discharge Recommendation: Patient will benefit from multidisciplinary inpatient therapies. In addition to the 1:1 evaluation of the patient, additional eval time was spent completing the chart review prior to the assessment, completing the multidisciplinary plan of care and education plan post evaluation and communicating results of the eval to other treatment team members. Nurse and Occupational Therapy contacted regarding patient status and/or discharge plan. 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, estrogen receptor positive (CMS/HCC) Mixed hyperlipidemia History of TIA (transient ischemic attack) Osteopenia of multiple sites Iron deficiency anemia due to chronic blood loss Chronic idiopathic constipation Calcification of aorta (CMS/HCC) Primary hypothyroidism Familial spastic paraplegia (CMS/HCC) Heart murmur CATY (obstructive sleep apnea) CAD (coronary artery disease) Lymphatic edema Partial seizure (CMS/HCC) OAB (overactive bladder) Left ventricular hypertrophy Hyperparathyroidism (CMS/HCC) Urinary tract infection associated with indwelling urethral catheter (CMS/HCC) Atrial fibrillation (CMS/HCC) Change in bowel habits Left hip pain Ambulatory dysfunction Acute congestive heart failure (CMS/HCC) Elevated troponin Lymphedema of both lower extremities Pure hypercholesterolemia Wheelchair bound Chronic diastolic CHF (congestive heart failure) (CMS/HCC) Type 2 diabetes mellitus with mild nonproliferative diabetic retinopathy with macular edema, right eye (CMS/HCC) Gastric outlet obstruction Encephalopathy Chronic indwelling Schmitt catheter Ileus (CMS/HCC) Hypokalemia Hypernatremia 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 Past Medical History: Diagnosis Date ??? Asthma 2012 ??? Atrial fibrillation (CMS/HCC) 2015 ??? Breast cancer (CMS/HCC) 08/25/2017 left ??? Broken ankle 12/19/2003 ??? CAD (coronary artery disease) 60 % blockage 2010 ??? Chronic idiopathic constipation 12/12/2017 ??? Chronically dry eyes 06/26/2018 ??? DM (diabetes mellitus) (CMS/HCC) ??? Duodenal ulcer, unspecified as acute or chronic, without hemorrhage, perforation, or obstruction 1977 ??? Familial spastic paraplegia (CMS/HCC) 1979 ??? Fracture of sacrum (CMS/HCC) 05/1999 [facility] ??? Glaucoma 06/2003 ??? Heart murmur 01/27/2004, 03/13/2004 ??? History of TIA (transient ischemic attack) 10/22/2017 ??? HSP (hereditary spastic paraplegia) (CMS/HCC) 01/06/2012 ??? HTN (hypertension) ??? Hyperparathyroidism (CMS/HCC) 06/26/2018 ??? 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 IBS (irritable bowel syndrome) ??? Iron deficiency anemia due to chronic blood loss 12/12/2017 ??? Left ventricular hypertrophy 06/26/2018 ??? Lymphatic edema ??? 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 ER pos 97% (strong), ID pos 23% (moderate), Her-2 neg (1+ on [...] of multiple sites 10/29/2017 ??? Partial seizures (CMS/HCC) 2000 ??? Pneumonia 1989, 08/2005, 07/2010 ??? [...] ??? Type 2 diabetes mellitus without complication (CMS/HCC) 01/07/2011 SUBJECTIVE: Subjective: Okay. Pt is agreeable to PT session PATIENT GOALS: Patient's Primary Concern: Pt does not state at this time Home Situation: Type of Residence: Care Home (Since July 2021) Prior Level of Functioning: Mobility: Transfers Only (staff using lift into chair) Fallen Within 6 Mos: No Pain Assessment: Pain Rating Score #: (un-rated pain in neck) Pain Location : Neck Follow-up for pain: No follow-up for pain indicated and patient agreed to proceed with treatment OBJECTIVE: At start of therapy session, patient found in bed and with bed alarm on. Daughter at bedside General Appearance: female, in bed, NAD LDAs: IV's: Peripheral line and Catheter Edema: no edema noted in bilateral lower extremities Vitals: (*Assess the 3 levels of oxygen saturations both for room air and 02 unless rest on room air is 88% or less). Rest BP: 104/43 (62) HR: 81 Sp02 Sp02 94% Room Air L O2 Ex/Gait/Activity Without 02 BP: 100/45 HR: Sp02 92% Room Air Post Activity BP: 90/75 (82) HR: 83 Sp02 Sp02 94% L O2 Room Air Observations: No signs or symptoms of distress with activity session. No c/o dizziness, SOB with activity. Mental Status/Cognition: Orientation Level: Oriented to Person;Oriented to Place;Disoriented to Time;Disoriented to Situation (pt able to state name, cues for , pt [facility] and [facility]. , unable to state year with choices, able to state month with cues) Cognition: Follows Commands-Consistent;Judgement-decreased;Safety awareness- decreased;Memory impairment-short term Attention Span: Attends with cues to redirect Following Commands: Follows one step commands with repetition/cues (pt follows ~80% of single step commands) Safety Judgement: Decreased awareness of need for safety Awareness of Errors: Decreased awareness of deficits ROM: RLE: PROM WFL LLE: PROM WFL Strength: RLE:deficits noted LLE: deficits noted Tone: RLE: no abnormal tone LLE: No abnormal tone Coordination: RLE: impaired LLE: impaired Sensation: RLE: intact, no complaints of numbness or tingling LLE: intact, no complaints of numbness or tingling Mobility: A gait belt and non-slip socks were used for all out of bed activity this date. Bed Mobility: Rolling: Maximal Assistance to Left;Maximal Assistance to Right Supine to Sit: Total Assistance;X 2 with HOB in semi-fowlers position Sit to Supine: Total Assistance;X 2 Balance: Balance Scales/Tests Used: Sitting: Static/Dynamic Sitting - Static: Fair - Sitting - Dynamic: Poor + ACTIVITY TOLERANCE: Patient's activity tolerance: poor plus TREATMENT/INTERVENTIONS: evaluation, ROM - cervical and thoracic spine rotation, bed mobility training, balance activities, monitoring of vitals and cognitive stimulation EDUCATION: While performing PT, Patient was instructed in:functional mobility training, safety awareness/fall precautions Presented to patient who demonstrates Fair understanding of instructions given. INFORMED CONSENT TO TREATMENT: Plan of care is discussed but patient with questionable understanding. ASSESSMENT: Patient would benefit from additional Physical Therapy sessions to achieve the following functionalgoals to enhance independence. Short Term Goals: Patient will perform bed mobility with maximal assist and X 2 Patient will demonstrate fair static/dynamic sitting balance Patient will follow 100% of single step commands Door Fitter Goal(s): Patient to discharge to appropriate next level of inpatient care. Equipment Issued: none Plan: Plan: Bed mobility training Balance training Safety awareness If patient is discharged from the facility, this note serves as a discharge summary if further physical therapy visits did not occur. Refer to filed flowsheet for further details. Following therapy session, patient left in bed, with bed alarm on , with call light within reach, with family in room, with RN, Kami, oscar. [facility] * Harper Palma, OT - 05/23/2022 9:53 AM CST [facility] Occupational Therapy Initial Evaluation Note Patient: Loc [facility] Record Number: [id number] Date of : 1940 Age: [age] year old PPE worn by staff: goggles;mask - procedural PPE worn by patient: gown - patient, clean;socks - clean Tech: No Co-tx with PT 2/2 skilled assist Discharge Recommendation: Return to [place]. In addition to the 1:1 evaluation of the patient, additional eval time was spent completing the chart review prior to the assessment, completing the multidisciplinary plan of care and education plan post evaluation and communicating results of the eval to other treatment team members. Nurse and Physical Therapy contacted regarding patient status and/or discharge plan. 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, estrogen receptor positive (CMS/HCC) Mixed hyperlipidemia History of TIA (transient ischemic attack) Osteopenia of multiple sites Iron deficiency anemia due to chronic blood loss Chronic idiopathic constipation Calcification of aorta (CMS/HCC) Primary hypothyroidism Familial spastic paraplegia (CMS/HCC) Heart murmur CATY (obstructive sleep apnea) CAD (coronary artery disease) Lymphatic edema Partial seizure (CMS/HCC) OAB (overactive bladder) Left ventricular hypertrophy Hyperparathyroidism (CMS/HCC) Urinary tract infection associated with indwelling urethral catheter (CMS/HCC) Atrial fibrillation (CMS/HCC) Change in bowel habits Left hip pain Ambulatory dysfunction Acute congestive heart failure (CMS/HCC) Elevated troponin Lymphedema of both lower extremities Pure hypercholesterolemia Wheelchair bound Chronic diastolic CHF (congestive heart failure) (CMS/HCC) Type 2 diabetes mellitus with mild nonproliferative diabetic retinopathy with macular edema, right eye (CMS/HCC) Gastric outlet obstruction Encephalopathy Chronic indwelling Schmitt catheter Ileus (CMS/HCC) Hypokalemia Hypernatremia 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 Past Medical History: Diagnosis Date ??? Asthma 2012 ??? Atrial fibrillation (CMS/HCC) 2015 ??? Breast cancer (CMS/HCC) 08/25/2017 left ??? Broken ankle 12/19/2003 ??? CAD (coronary artery disease) 60 % blockage 2010 ??? Chronic idiopathic constipation 12/12/2017 ??? Chronically dry eyes 06/26/2018 ??? DM (diabetes mellitus) (CMS/HCC) ??? Duodenal ulcer, unspecified as acute or chronic, without hemorrhage, perforation, or obstruction 1977 ??? Familial spastic paraplegia (CMS/HCC) 1979 ??? Fracture of sacrum (CMS/HCC) 05/1999 [facility] ??? Glaucoma 06/2003 ??? Heart murmur 01/27/2004, 03/13/2004 ??? History of TIA (transient ischemic attack) 10/22/2017 ??? HSP (hereditary spastic paraplegia) (CMS/HCC) 01/06/2012 ??? HTN (hypertension) ??? Hyperparathyroidism (CMS/HCC) 06/26/2018 ??? 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 IBS (irritable bowel syndrome) ??? Iron deficiency anemia due to chronic blood loss 12/12/2017 ??? Left ventricular hypertrophy 06/26/2018 ??? Lymphatic edema ??? 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 ER pos 97% (strong), ID pos 23% (moderate), Her-2 neg (1+ on [...] of multiple sites 10/29/2017 ??? Partial seizures (CMS/HCC) 2000 ??? Pneumonia 1989, 08/2005, 07/2010 ??? [...] ??? Type 2 diabetes mellitus without complication (CMS/HCC) 01/07/2011 SUBJECTIVE: Ok. Pt daughter present at bedside throughout session. PATIENT GOALS: to feel better Home Situation: Type of Residence: Care Home (Since July 2021) Prior Level of Functioning: Mobility: Transfers Only (staff using lift into chair) Fallen Within 6 Mos: No Pain Assessment: Pain Rating Score #: (un-rated pain in neck) Pain Location : Neck Follow-up for pain: No follow-up for pain indicated and patient agreed to proceed with treatment OBJECTIVE: At start of therapy session, patient found in bed and with bed alarm on General Appearance: Pt is an 81 year old female found supine in bed, NAD. LDA: IV's: Peripheral line Edema: No edema noted Vitals: (*Assess the 3 levels of oxygen saturations both for room air and 02 unless rest on room air is 88% or less). Rest BP: 104/43 (62) HR: 81 Sp02 ?? Sp02 94% Room Air ? Ex/Gait/Activity Without 02 BP: 100/45 HR: ??91 Sp02 92% Room Air Post Activity BP: 90/75 (82) HR: 83 Sp02 ?? Sp02 94% Room Air Observations: Pt endorses dizziness with sitting at EOB, reports improvement with continued sitting; however, does not fully resolve. Pt returned to supine, RN notified of VS above. Mental Status/Cognition: Level of Consciousness-Adult: Alert Orientation Level: Oriented to Person;Oriented to Place;Disoriented to Time;Disoriented to Situation (pt able to state name, cues for , [facility] and [facility] , unable to state year with choices, able to state month with cues) Cognition: Follows one step commands;Processing-delayed;Judgement-decreased Attention Span: Attends with cues to redirect Memory: Decreased short term memory Following Commands: Follows one step commands with repetition/cues (80% of the time) Safety Judgement: Decreased awareness of need for safety Awareness of Errors: Decreased awareness of deficits UE ROM: RUE: AROM WFL LUE: AROM WFL Strength: RUE: grossly 3/5 LUE: grossly 3/5 UE Tone RUE: no abnormal tone noted LUE: no abnormal tone noted Coordination: deficits noted for serial opposition UE Proprioception RUE: WFL LUE: WFL UE Sensation RUE: intact, no complaints of numbness or tingling LUE: intact, no complaints of numbness or tingling Perception: Inattention/Neglect: Appears intact Visual/Motor Tracking: Able to track stimulus in all quads w/o difficulty Mobility: A gait belt and non-slip socks were used for all out of bed activity this date. Bed Mobility: Rolling: Maximal Assistance to Left;Maximal Assistance to Right Supine to Sit: Total Assistance;X 2 with HOB in semi-fowlers position Sit to Supine: Total Assistance;X 2 Transfers: Sit to Stand: Activity Does Not Occur (2/2 poor sitting balance) Functional Ambulation: NT Balance: Balance Scales/Tests Used: Sitting: Static/Dynamic Sitting - Static: Fair - Sitting - Dynamic: Poor + Activities of Daily Living Feeding: Activity Does Not Occur (hand to mouth intact) Oral Facial Hygiene: Activity Does Not Occur;Declined Bathing: Activity Does Not Occur Upper Body Dressing: Maximal Assistance (adjusting gown in sitting) Lower Body Dressing: Maximal Assistance (donning socks in supine) Toileting: Maximal Assistance (rolling for placement of bed goddard, RN notified and aware, pt with call light in hand and daughter present) Splint Issued/Checked: none ACTIVITY TOLERANCE: Patient's activity tolerance: poor plus. TREATMENT / EDUCATION / INTERVENTIONS: While performing OT, Patient was instructed in:functional mobility training, self-care training, energy conservation, safety awareness/fall precautions Presented to patient who demonstrates Fair understanding of instructions given. INFORMED CONSENT TO TREATMENT: Plan of care including recommended therapy, goals and frequency, discussed with patient who understands and agrees to proceed. ASSESSMENT: Functional performance limited due to: limited activities of daily living, decreased functional mobility, decreased functional balance, decreased cognition , decreased safety awareness, upper extremity functional impairments and decreased endurance and activity tolerance. Short Term Goals: Goal Formation With patient Cognition: 1 step commands and 100% of the time Patient will perform grooming with minimal assist Patient will perform upper extremity dressing with minimal assist Door Fitter Goal(s): Patient to be baseline with functional mobility and self-care and should discharge to prior level of care. Plan: Plan: ADL training Adaptive equipment training Cognitive retraining Functional transfer training Functional balance training Endurance training Bed mobility training Energy conservation techniques Safety awareness If patient is discharged from the facility, this note serves as a discharge summary if further occupational therapy visits did not occur. Refer to filed flowsheet for further details. Following therapy session, patient left in bed, with bed alarm on , with call light within reach, with family in room, with Kami NUNES aware. [facility] * Kami Muniz RN - 05/23/2022 7:07 AM CST Problem: Fall Risk Goal: Fall risk and fall related injury risk are minimized (interventions related to the fall risk can be found in the flowsheet documentation) Outcome: Progressing Problem: Skin Integrity Goal: Skin integrity is maintained or improved Outcome: Progressing Problem: Safety related to restraint use Goal: Absence of injury while restrained Outcome: Progressing Problem: Pain/Discomfort Goal: Patient exhibits reduced pain/discomfort as evidenced by pain scores Outcome: Progressing Goal: Patient uses pharmacological and non-pharmacological pain management strategies. Outcome: Progressing Goal: Patient verbalizes acceptable level of pain relief and ability to engage in desired activity. Outcome: Progressing Problem: Tissue injury due to various disease processes Goal: Provide optimal wound healing environment Outcome: Progressing Problem: Tissue Injury due to Inadequate Arterial Perfusion Goal: Maintain Clean/Stable wound environment Outcome: Progressing Problem: Tissue Injury due to Venous Hypertension Goal: Maintain Infection Free Stable Wound Environment Outcome: Progressing Problem: Tissue Injury Due to Loss of Protective Sensation Goal: Protect Injured Tissue and Prevent Further Injury Outcome: Progressing Problem: Tissue Injury Due to External Forces of Pressure, Friction, and Shear Goal: Protect Skin from External Forces Outcome: Progressing Goal: Maintain and Improve Tissue Tolerance to Pressure Outcome: Progressing Problem: Nutrient: Increased nutrient needs (specify) Goal: Total intake will meet estimated nutrient needs Outcome: Progressing Problem: Infection Goal: Signs and symptoms of infections are decreased or avoided Outcome: Progressing Problem: Daily Care Goal: Daily care needs are met Outcome: Progressing Problem: Hemodynamic Status/Cardiac Output Goal: Patient has stable vital signs and fluid balance Outcome: Progressing Problem: Balance Goal: LTG - Patient will demonstrate Intervention to enhance balance for safe completion of daily activities Outcome: Progressing [facility] * Leyda Vail - 05/22/2022 11:29 PM CST Problem: Fall Risk Goal: Fall risk and fall related injury risk are minimized (interventions related to the fall risk can be found in the flowsheet documentation) Outcome: Progressing Problem: Skin Integrity Goal: Skin integrity is maintained or improved Outcome: Progressing Problem: Safety related to restraint use Goal: Absence of injury while restrained Outcome: Progressing Problem: Pain/Discomfort Goal: Patient exhibits reduced pain/discomfort as evidenced by pain scores Outcome: Progressing Goal: Patient uses pharmacological and non-pharmacological pain management strategies. Outcome: Progressing Goal: Patient verbalizes acceptable level of pain relief and ability to engage in desired activity. Outcome: Progressing Problem: Tissue injury due to various disease processes Goal: Provide optimal wound healing environment Outcome: Progressing Problem: Tissue Injury due to Inadequate Arterial Perfusion Goal: Maintain Clean/Stable wound environment Outcome: Progressing Problem: Tissue Injury due to Venous Hypertension Goal: Maintain Infection Free Stable Wound Environment Outcome: Progressing Problem: Tissue Injury Due to Loss of Protective Sensation Goal: Protect Injured Tissue and Prevent Further Injury Outcome: Progressing Problem: Tissue Injury Due to External Forces of Pressure, Friction, and Shear Goal: Protect Skin from External Forces Outcome: Progressing Goal: Maintain and Improve Tissue Tolerance to Pressure Outcome: Progressing Problem: Nutrient: Increased nutrient needs (specify) Goal: Total intake will meet estimated nutrient needs Outcome: Progressing Problem: Infection Goal: Signs and symptoms of infections are decreased or avoided Outcome: Progressing Problem: Daily Care Goal: Daily care needs are met Outcome: Progressing Problem: Hemodynamic Status/Cardiac Output Goal: Patient has stable vital signs and fluid balance Outcome: Progressing [facility] * Nathaly Crooks RN - 05/22/2022 11:39 AM CST Problem: Fall Risk Goal: Fall risk and fall related injury risk are minimized (interventions related to the fall risk can be found in the flowsheet documentation) Outcome: Progressing Problem: Skin Integrity Goal: Skin integrity is maintained or improved Outcome: Progressing Problem: Safety related to restraint use Goal: Absence of injury while restrained Outcome: Progressing Problem: Pain/Discomfort Goal: Patient exhibits reduced pain/discomfort as evidenced by pain scores Outcome: Progressing Goal: Patient uses pharmacological and non-pharmacological pain management strategies. Outcome: Progressing Goal: Patient verbalizes acceptable level of pain relief and ability to engage in desired activity. Outcome: Progressing [facility] * Mich Nolan MD - 05/22/2022 10:21 AM CST [facility] Progress Note Name: Loc Anderson Age: [age] year old Room: 829/01 Date Admitted: 05/19/2022 Chief Complaint: Abdominal distension Subjective: Patient was seen and examined at bedside. Denies headaches, dizziness, shortness of breath, nausea, abdominal pain. No nausea emesis. Objective: Vitals: 05/21/22 1109 05/21/22 1549 05/21/22 2001 05/22/22 0001 BP: 109/47 110/47 106/47 105/47 Pulse: 78 78 78 78 Resp: 17 17 16 18 Temp: 97.3 ??F (36.3 ??C) 97.3 ??F (36.3 ??C) 98.1 ??F (36.7 ??C) 98.3 ??F (36.8 ??C) SpO2: 97% 97% 97% 97% Weight: Estimated body mass index is 30.27 kg/m?? as calculated from the following: Height as of 03/06/21: 1.651 m (5' 5 ). Weight as of this encounter: 82.5 kg (181 lb 14.1 oz). Physical Exam: General: Alert, cooperative, NAD, NG tube in place Skin: No rashes or lesions noted HEENT: NC,AT, PERRL, EOMI, No drainage or sinus tenderness, nares patent, Mucous membranes moist Neck: Supple, no JVD Heart: RRR, normal S1 and S2 Lungs: Clear to auscultation. No wheezes, rales or rhonchi Abdomen: Soft, non-tender, normal bowel sounds. Extremities: No edema Pulses: 2+ and symmetric MSKL: Normal bulk and tone. Intact ROM in all extremities Neuro: Alert and oriented X 3 Labs: Recent Labs Component Name 05/22/22 0726 05/22/22 0456 05/20/22 0948 05/20/22 0336 WBC 12.2* - - 20.8* HGB 11.0* - - 11.7* HCT 33.5* - - 35.7 NA 143 - - 148* CL 116* - - 114* BUN 9 - - 24 CREATININE 0.55* - - 0.58 PHOS 1.7* - - - CALCIUM 9.5 - - 9.8 PT - 18.1* - - INR - 1.5 - - AST - - - 12 ALT - - - 12 ALKPHOS - - - 65 TBILI - - - 0.3 - = values in this interval not displayed. Imaging: CT HEAD WO CONTRAST Result Date: 05/20/2022 IMPRESSION: No acute intracranial abnormality. Report dictated by Gareth Peraza MD (radiology administrator) I, Kari Reynoso MD have personally reviewed and interpreted this examination/study. > Interpreting Provider: Kari Reynoso MD on 05/20/2022 1:36 PM XR ABDOMEN KUB PORTABLE Result Date: 05/19/2022 IMPRESSION: Moderate gaseous distention throughout the colon with folding of the colon in the mid abdomen/left upper quadrant. Findings can be seen in the setting of early cecal volvulus. If clinicalsuspicion for acute abdomen is present, recommend CT abdomen pelvis with contrast. Alternatively, this can be seen in the setting of ileus and/or obstruction. Report dictated by Gareth Peraza MD (radiology administrator) I, AGUILAR MEDINA MD have personally reviewed and interpreted this examination/study. > Interpreting Provider: AGUILAR MEDINA MD on 05/19/2022 3:02 PM HTN (hypertension) POA: Yes Type 2 diabetes mellitus without complication (CMS/HCC) POA: Yes HSP (hereditary spastic paraplegia) (CMS/HCC) POA: Yes Urinary tract infection associated with indwelling urethral catheter (CMS/HCC) POA: Yes Chronic diastolic CHF (congestive heart failure) (CMS/HCC) POA: Yes Chronic idiopathic constipation POA: Yes Hyperparathyroidism (CMS/HCC) POA: Yes Atrial fibrillation (CMS/HCC) POA: Yes Wheelchair bound POA: Yes Encephalopathy POA: Yes Chronic indwelling Schmitt catheter POA: Yes Ileus (CMS/HCC) POA: Yes Hypokalemia POA: Yes Hypernatremia POA: Yes 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 POA: Yes Assessment and Plan: 81 year old female with past medical history significant for HTN, DM II, Afib, DVT/PE on Apixaban, hereditary spastic paraplegia, MS, neurogenic bladder with chronic schmitt catheter who presented for abdominal distension 1. Chronic constipation: with ileus, start senna and miralax and HOG enema, DC NG tube, Cdiff negative ?? 2. Acute encephalopathy: improving, 2/2 to UTI, monitor ?? 3. UTI: switch to ceftriaxone, urine culture with urogentinal rebeka, blood culture without growth to date ?? 4. DM2: continue insulin sliding scale and hypoglycemia protocol 6. ??Hx of breast cancer: s/p lumpectomy ?? 7. Primary hyperparathyroidism: monitor Ca and Phos ?? 8. Hx of MS and neurogenic bladder: continue schmitt per urology ?? 9. Hx of PE/DVT: switch to eliquis ?? 10. Hypothyroidism: resume synthroid Lines: PIV Disposition: Inpatient Diet: CLD advance as tolerated Prophylaxis: eliquis Code: Full Mich Nolan MD Hospitalist, Internal Medicine Nursing staff updated with changes to care plan. Updates to disposition plan discussed with social work and case management. Approximately 35 minutes was spent reviewing medical records including laboratory/imaging data, discussing disposition plan with care coordination team and updating nursing staff regarding changes tocare plan. Greater than 50% of the time was spent performing care coordination. [facility] * Pancho Davenport MD - 05/22/2022 10:13 AM CST Patient seen and examined on bed side. KUB reviewed, shows improvement but still has large stool burden. On exam, patient is comfortable, BS+, having output in rectal tube, on my exam abdomen bening, no worsening of distension Consider starting oral liquids, can remove the NGT Aggressive bowel regimen, please continue miralax BID, continue enemas. Can even give 2L Golyetely once orally able to drink GI will follow patient peripherally, please call with any questions [facility] * Jp Hall RN - 05/22/2022 12:13 AM CST Problem: Fall Risk Goal: Fall risk and fall related injury risk are minimized (interventions related to the fall risk can be found in the flowsheet documentation) Outcome: Progressing Problem: Skin Integrity Goal: Skin integrity is maintained or improved Outcome: Progressing Problem: Safety related to restraint use Goal: Absence of injury while restrained Outcome: Progressing Problem: Pain/Discomfort Goal: Patient exhibits reduced pain/discomfort as evidenced by pain scores Outcome: Progressing Goal: Patient uses pharmacological and non-pharmacological pain management strategies. Outcome: Progressing Goal: Patient verbalizes acceptable level of pain relief and ability to engage in desired activity. Outcome: Progressing Problem: Tissue injury due to various disease processes Goal: Provide optimal wound healing environment Outcome: Progressing Problem: Tissue Injury due to Inadequate Arterial Perfusion Goal: Maintain Clean/Stable wound environment Outcome: Progressing Problem: Tissue Injury due to Venous Hypertension Goal: Maintain Infection Free Stable Wound Environment Outcome: Progressing Problem: Tissue Injury Due to Loss of Protective Sensation Goal: Protect Injured Tissue and Prevent Further Injury Outcome: Progressing Problem: Tissue Injury Due to External Forces of Pressure, Friction, and Shear Goal: Protect Skin from External Forces Outcome: Progressing Goal: Maintain and Improve Tissue Tolerance to Pressure Outcome: Progressing Problem: Nutrient: Increased nutrient needs (specify) Goal: Total intake will meet estimated nutrient needs Outcome: Progressing Problem: Infection Goal: Signs and symptoms of infections are decreased or avoided Outcome: Progressing Problem: Daily Care Goal: Daily care needs are met Outcome: Progressing Problem: Hemodynamic Status/Cardiac Output Goal: Patient has stable vital signs and fluid balance Outcome: Progressing [facility] * Mich Nolan MD - 05/21/2022 6:41 PM CST NG tube clamped at 3:30pm. If patient tolerates clamping for 4 hours without nausea, NG tube can be discontinued and diet advanced to clear liquids. Discussed with GI. Mich Nolan MD Hospitalist [facility] * Trina Garcia PharmD - 05/21/2022 3:44 PM CST [facility] Pharmacy Medication Reconciliation Note: Clarified outpatient medications with [facility]. Current Updated Home Medications: Current Outpatient Medications on File Prior to Encounter Medication Sig ALPRAZolam (XANAX) 0.25 MG tablet Take 0.25 mg by mouth 2 times daily as needed for Anxiety amitriptyline (Elavil) 50 MG tablet Take 1 (one) tablet by mouth at bedtime anastrozole (Arimidex) 1 MG tablet Take 1 (one) tablet by mouth once daily apixaban (Eliquis) 5 MG tablet Take 1 (one) tablet by mouth 2 times daily calcium polycarbophil (Fibercon) 625 MG tablet Take 1 (one) tablet by mouth 3 times daily canagliflozin (Invokana) 100 MG tablet Take 1 (one) tablet by mouth daily before breakfast Cranberry 425 MG Take 1 (one) tablet by mouth once daily cyanocobalamin (Vitamin B-12) 500 MCG tablet Take 1 (one) tablet by mouth once daily denosumab (PROLIA) 60 MG/ML SC injection Inject 60 mg subcutaneously Every 180 days docusate sodium (Colace) 100 MG capsule Take 1 (one) capsule by mouth every 2 days dorzolamide (TRUSOPT) 2 % ophthalmic solution Instill 1 drop into both eyes 2 times daily esomeprazole (NexIUM) 40 MG capsule Take 1 (one) capsule by mouth daily before breakfast flecainide (TAMBOCOR) 50 MG tablet Take 1 (one) tablet by mouth 2 times daily furosemide (LASIX) 40 MG tablet Take 1 (one) tablet by mouth once daily glimepiride (Amaryl) 1 MG tablet Take 1 tablet by mouth daily at 4-5pm glimepiride (Amaryl) 2 MG tablet Take one tablet by mouth twice daily (7-8am and 11am-12pm) HYDROcodone-acetaminophen (Silverpeak) 5-325 MG tablet Take 1 (one) tablet by mouth every 6 hours as needed for Pain insulin glargine (LANTUS) pen Inject 12 (twelve) Units subcutaneously every morning lactulose (Chronulac) 10 GM/15ML solution Take 30 mL by mouth 4 times daily as needed for Constipation levothyroxine (Synthroid) 75 MCG tablet Take one tablet by mouth once daily on Fri, , Fri, , Fri, and Fri levothyroxine (Synthroid) 75 MCG tablet Take two tablets by mouth once daily on only linaCLOtide (LINZESS) 290 MCG capsule Take 290 mcg by mouth daily before breakfast Take on an emptystomach at least 30 minutes prior to first meal of the day. metoclopramide (Reglan) 10 MG tablet Take 1 (one) tablet by mouth 3 times daily before meals metOLazone (ZAROXOLYN) 2.5 MG tablet Take 1 tablet by mouth twice a week on Friday and miconazole (Micatin) 2 % cream Apply topically to buttocks twice daily until fungal resolved multivitamin with iron (ONE A DAY WITH IRON) tablet Take 1 Tab by mouth once daily. nitroGLYCERIN (Nitrostat) 0.4 MG tablet Dissolve 1 (one) tablet under the tongue every 5 minutes asneeded for Angina Other pneumatic compression pump twice a day on her legs for lymphedema. Setting are between 40 to 50 mmgh DX lymphedema polyethylene glycol 3350 (Miralax) 17 g packet Take 17 (seventeen) g by mouth every 2 days potassium chloride ER (Klor-Con M) 20 MEQ tablet Take 1 (one) tablet by mouth 4 times daily PROLENSA 0.07 % opthalmic solution Instill 1 drop into right eye once daily rosuvastatin (Crestor) 10 MG tablet Take 1 (one) tablet by mouth at bedtime saccharomyces (Florastor Extra Str) 250 MG capsule Take 1 (one) capsule by mouth 2 times daily Simethicone 125 MG TABS Take 1 tablet by mouth 2 times daily SITagliptin (JANUVIA) 100 MG tablet Take 100 mg by mouth once daily spironolactone (ALDACTONE) 25 MG tablet Take 25 mg by mouth once daily trospium (SANCTURA) 20 MG tablet Take 20 mg by mouth 2 times daily verapamil CR (Isoptin-SR) 120 MG tablet Take 1 (one) tablet by mouth at bedtime vitamin D3 (CHOLECALCIFEROL) 25 MCG (1000 UNITS) tablet Take 1,000 Units by mouth once daily This note indicates: Input most accurate/up-to-date outpatient pharmacy information Reviewed and updated patient's allergies including reactions/severity Verified doses, routes, and frequencies for all medications Investigated patient compliance and last known refill for each medication Identified any over the counter or herbal medications currently being taken Checked for pertinent drug-drug interactions Updated home medication record Please note that this only serves as an updated medication list and medicine teams should continue to manage the patient as deemed most appropriate. If any questions about medication list arise please do not hesitate to contact the [facility] pharmacy dept ([id number]). Thank you. Assessment Completed by: Trina Garcia PharmD 05/21/2022 3:43 PM [facility] * Mich Nolan MD - 05/21/2022 11:16 AM CST Hospital Medicine Progress Note Name: Loc Anderson Age: [age] year old Room: 836/836d Date Admitted: 05/19/2022 Chief Complaint: Abdominal distension Subjective: Patient was seen and examined at bedside. Denies headaches, dizziness, shortness of breath, nausea, abdominal pain. Rectal tube with liquid stool Objective: Vitals: 05/20/22 2200 05/21/22 0000 05/21/22 0211 05/21/22 0740 BP: 112/53 106/57 111/48 121/49 Pulse: 87 80 82 79 Resp: 15 15 16 17 Temp: 97.9 ??F (36.6 ??C) 97.5 ??F (36.4 ??C) 98.8 ??F (37.1 ??C) SpO2: 97% 94% 98% Weight: Estimated body mass index is 30.27 kg/m?? as calculated from the following: Height as of 03/06/21: 1.651 m (5' 5 ). Weight as of this encounter: 82.5 kg (181 lb 14.1 oz). Physical Exam: General: Alert, cooperative, NAD, NG tube in place Skin: No rashes or lesions noted HEENT: NC,AT, PERRL, EOMI, No drainage or sinus tenderness, nares patent, Mucous membranes moist Neck: Supple, no JVD Heart: RRR, normal S1 and S2 Lungs: Clear to auscultation. No wheezes, rales or rhonchi Abdomen: Soft, distended, normal bowel sounds. No masses, rectal tube with liquid feces in the collection bag Extremities: No edema Pulses: 2+ and symmetric MSKL: Normal bulk and tone. Intact ROM in all extremities Neuro: Alert and oriented X 2 Labs: Recent Labs Component Name 05/21/22 0623 05/20/22 0948 05/20/22 0336 WBC 13.5* - 20.8* HGB 11.2* - 11.7* HCT 33.4* - 35.7 NA 151* - 148* CL 116* - 114* BUN 14 - 24 CREATININE 0.49* - 0.58 PHOS 1.1* - - CALCIUM 9.5 - 9.8 PT 19.6* - - INR 1.7 - - AST - - 12 ALT - - 12 ALKPHOS - - 65 TBILI - - 0.3 - = values in this interval not displayed. Imaging: CT HEAD WO CONTRAST Result Date: 05/20/2022 IMPRESSION: No acute intracranial abnormality. Report dictated by Gareth Peraza MD (radiology administrator) IKari MD have personally reviewed and interpreted this examination/study. > Interpreting Provider: Kari Reynoso MD on 05/20/2022 1:36 PM XR ABDOMEN KUB PORTABLE Result Date: 05/19/2022 IMPRESSION: Moderate gaseous distention throughout the colon with folding of the colon in the mid abdomen/left upper quadrant. Findings can be seen in the setting of early cecal volvulus. If clinicalsuspicion for acute abdomen is present, recommend CT abdomen pelvis with contrast. Alternatively, this can be seen in the setting of ileus and/or obstruction. Report dictated by Gareth Peraza MD (radiology administrator) I, AGUILAR MEDINA MD have personally reviewed and interpreted this examination/study. > Interpreting Provider: AGUILAR MEDINA MD on 05/19/2022 3:02 PM HTN (hypertension) POA: Yes Type 2 diabetes mellitus without complication (CMS/HCC) POA: Yes HSP (hereditary spastic paraplegia) (CMS/HCC) POA: Yes Urinary tract infection associated with indwelling urethral catheter (CMS/HCC) POA: Yes Chronic diastolic CHF (congestive heart failure) (CMS/HCC) POA: Yes Chronic idiopathic constipation POA: Yes Hyperparathyroidism (CMS/HCC) POA: Yes Atrial fibrillation (CMS/HCC) POA: Yes Wheelchair bound POA: Yes Encephalopathy POA: Yes Chronic indwelling Schmitt catheter POA: Yes Ileus (CMS/HCC) POA: Yes Hypokalemia POA: Yes Hypernatremia POA: Yes 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 POA: Yes Assessment and Plan: 81 year old female with past medical history significant for HTN, DM II, Afib, DVT/PE on Apixaban, hereditary spastic paraplegia, MS, neurogenic bladder with chronic schmitt catheter who presented for abdominal distension 1. Chronic constipation: with ileus, start senna and miralax, continue NG tube with LIS, Cdiff negative 2. Acute encephalopathy: improving, 2/2 to UTI, monitor 3. UTI: continue zosyn, likely de escalate to ceftriaxone tomorrow if WBC continue to improve, urine culture with urogentinal rebeka, blood culture without growth to date 4. DM2: continue insulin sliding scale and hypoglycemia protocol 5. Hypernatremia: continue D5/0.45 NS 6. Hx of breast cancer: s/p lumpectomy 7. Primary hyperparathyroidism: monitor Ca and Phos 8. Hx of MS and neurogenic bladder, 9. Hx of PE/DVT: continue heparin infusion, switch to eliquis 10. Hypothyroidism: TSH wnl, will resume synthroid once able to tolerate oral Lines: PIV Disposition: Inpatient Diet: NPO Prophylaxis: heparin infusion Code: Full Mich Nolan MD Hospitalist, Internal Medicine [facility] * Pancho Davenport MD - 05/21/2022 10:49 AM CST GASTROENTEROLOGY CONSULT Loc Anderson Age: [age] year old Date of : 1940 Date of Admission: 05/19/2022 Reason for Consult: Constipation Requesting Team: MICU 3 Assessment: Loc Anderson is a 81 year old female with a history of HTN, DM II, Afib, DVT/PE on Apixaban, hereditary spastic paraplegia, MS, neurogenic bladder with chronic schmitt catheter, cognitive impairement (baseline AOx2-3), chronic constipation who presented from nursing facility to hospital on 05/19/22 for AMS and low grade fever, found to have UTI and concern for abdominal distension for which ACS and GI were consulted. ?? Hx of chronic constipation: Could be secondary to neurogenic bowel in setting of her underlying neurological conditions. Previously requiring manual disimpaction. Chronically on Linzess, miralax, milk of magnesia, dulcolax suppositories per chart review. Currently with rectal tube in place with b rownish stools (~350 mL/24 hours, given enemas though). ?? Likely ileus, initial concern for gastric outlet obstruction on OSH CT A/P: Patient being followed by ACS as well. Currently with NGT in place and rectal tube for decompression. Started on HOG enemas Q6HR. Remains NPO currently. Lower concern for true GOO, this is likely related to diffuse slowing in motility and ileus. ?? Concern for acute on chronic toxic/metabolic encephalopathy: Possibly in relation to UTI, being treated for that. Constipation may be contributing as well in addition to electrolyte abnormalities. ?? Severe hypokalemia: K noted to be as low as 2.1 today. Mg 1.9. ?? Other co-morbidities: HTN, DM II, Afib, DVT/PE on Apixaban. Recommendations: ?? Agree with serial abdominal examination and KUBs. Continue laxatives and enemas ?? Aggressive monitoring and repletion of K to goal 4.4, Mg to 2.2. ?? Treat underlying hypercalcemia and hyperparathyrodism as you are doing, this is also contributing to constipation. ?? Reasonable to attempt to clamp NGT and advance diet to CLD today. ?? If tolerating CLD, consider starting Miralax BID today. Continue current enemas. ?? Linzess can be restarted, once tolerating liquids and NGT can be removed Patient and above recommendations were discussed with GI attending, Dr. Gomez, as well as the primary team. Thank you for allowing us to participate in the care of this patient. We will continue to follow this patient with you. Please do not hesitate to contact us with further questions. Subjective: Patient is alert, responding to questions. No abdominal pain or worsening distension. No nausea or vomiting Relevant consult history Loc Anderson is a 81 year old female with a history of HTN, DM II, Afib, DVT/PE on Apixaban, hereditary spastic paraplegia, MS, neurogenic bladder with chronic schmitt catheter, cognitive impairement (baseline AOx2-3), chronic constipation who presented from nursing facility to hospital on 05/19/22 for AMS and low grade fever, found to have UTI and concern for abdominal distension, constipation for which ACS and GI were consulted. She has required manual disimpaction during an admission in [facility] (flex sig was done for decompression). Objective: Physical Exam: BP 121/49 Pulse 79 Temp 98.8 ??F (37.1 ??C) (Axillary) Resp 17 Wt 82.5 kg (181 lb 14.1 oz) SpO2 98% Wt Readings from Last 5 Encounters: 05/20/22 82.5 kg (181 lb 14.1 oz) 03/06/21 68 kg (150 lb) 02/19/21 76.2 kg (168 lb) 01/18/21 76.3 kg (168 lb 3.2 oz) 12/08/20 76.6 kg (168 lb 12.8 oz) General: pleasant, in no distress HEENT: conjunctivae/corneas clear. Moist mucous membranes. Neck: supple Lungs: clear to auscultation bilaterally, no wheezes Heart: Normal rate and regular rhythm, no appreciable murmurs Abdomen: soft, non-tender, improved distension in abdomen, bowel sounds present, no palpable masses Rectal: deferred Extremities: no edema Neuro: alert and oriented to self only, paraplegia Labs: Recent Labs Component Name 05/21/22 0623 05/20/22 0948 05/20/22 0336 05/19/22 1201 01/18/21 1058 01/05/21 1450 09/28/20 1024 09/28/20 0155 09/27/20 0115 WBC 13.5* - 20.8* 31.8* 11.5* 9.4 - 13.9* 17.2* HGB 11.2* - 11.7* 13.7 11.5* 11.2* - 12.7 12.5 MCV 83.1 - 84.0 82.1 74.0* 76.6* - 78.4* 78.5* INR 1.7 1.8 - 1.7 - - - 1.1 1.1 - = values in this interval not displayed. Recent Labs Component Name 05/21/22 0623 05/20/22 2150 05/20/22 1344 NA 151* 149* 151* CL 116* 117* 122* CO2 26 24 24 BUN 14 16 18 CREATININE 0.49* 0.46* 0.53* Recent Labs Component Name 05/20/22 0336 05/19/22 1201 12/08/20 0000 AST 12 14 19 ALT 12 14 21 ALKPHOS 65 84 83 TBILI 0.3 0.3 - ALB 2.4* 2.8* - Imaging: KUB shows improvement, still has stool burden Procedures: EGD 12/22/20: Done for LETA, erythematous antrum, biopsied, multiple benign gastric polyps, normal duodenum. Colonoscopy 12/27/20: Large fecal impaction in the rectum and sigmoid colon, few erosions in rectum,manually disimpacted. Pancho Davenport MD PGY-4, Gastroenterology & Hepatology Fellow [facility] Associated attestation - Richard Villarreal MD - 05/21/2022 4:37 PM [facility] I have seen and examined the patient with the Fellow and I agree with the findings and plan of careas documented by the Fellow. Richard Gill MD Media Sales Representativecampaign specialist Director of Advanced Endoscopy GI Fellowship Associate Compliance Auditor Division of Gastroenterology & Hepatology * Jovi Padilla MD - 05/21/2022 6:26 AM CST Images from the original note were not included. ACUTE CARE SURGERY PROGRESS NOTE ADMIT: 05/19/2022 11:30 AM LOS: 2 days 05/21/2022 HISTORY: Loc Anderson is a 81 year old female PMHx of HTN, T2DM, Afib, DVT/PE (on eliquis), hereditary spastic paraplegia, MS, neurogenic bladder (chronic schmitt catheter), breast cancer, cognitive impairment (baseline AOx2-3) NH resident admitted 05/19/2022 with altered mental status and low grade fever. According to family at bedside, patient was noted to be more confused and was febrile at the care home. She was taken to OSH ([place]) and due to her abdominal distension a CT abdomen was obtained and was suspicious for gastric outlet obstruction, associated with worsening chronic large bowel dilatation. NG tube was placed OSH, patient was started on Zosyn and was transferred to [facility]. SUBJECTIVE: - Patient is stable and not complaining of abdominal pain - Patient will remain NPO until adequate return of bowel function Recent events: - Patient transferred to regular floor - NGT output charted as 300 cc gastric during day shift - Rectal tube output charted as 250 cc during day shift - Received 2 x HOG enemas yesterday - LUIS ANTONIO yesterday did not provide evidence for hard stool ball - WBC improving to 13.5 (20.8) - Low K (3) and low P (1.1) (patient taking KCL IV Bolus) - Pending Urine Cx OBJECTIVE: Vitals: Blood pressure 111/48, pulse 82, temperature 97.5 ??F, temperature source Axillary, resp. rate 16, weight 82.5 kg (181 lb 14.1 oz), SpO2 94 %, not currently . Temp: [97.1 ??F-98 ??F] 97.5 ??F Pulse: [80-97] 82 Resp: [5-19] 16 BP: (106-148)/(48-95) 111/48 Physical Exam Gen: No acute distress, Sitting in the chair/lying in the bed comfortably HEENT: Atraumatic, Normocephalic, NGT to LIWS CV: Regular, rate and rhythm. Pulm: breath sounds equal & clear bilaterally. Non-labored respirations. Abd: Soft, moderately distended, no abdominal tenderness with deep palpation, no rebound tendernessnor guarding LUIS ANTONIO 1/2 performed and hard stool ball on exam MSK: Range of motion intact, no edema, cyanosis or clubbing. Neuro: Moving all extremities spontaneously, no focal deficits. Psych: Appropriate mood and affect. DIET: DIET NPO Except: ICE CHIPS Ins/Outs: 05/20 0701 - 05/21 0700 In: 1789 [I.V.:1129] Out: 191 [Urine:1360; Drains:300] RECENT LABS: Recent Labs Component Name 05/20/22 0336 05/19/22 1201 01/18/21 1058 WBC 20.8* 31.8* 11.5* HGB 11.7* 13.7 11.5* HCT 35.7 40.7 39.5 MCV 84.0 82.1 74.0* Recent Labs Component Name 05/20/22 2150 05/20/22 1344 05/20/22 0336 05/19/22202405/19/22 1201 10/12/20 1209 10/04/20 0417 NA 149* 151* 148* 146* 142 - - CL 117* 122* 114* 112* 110* - - CO2 24 24 26 25 22 - 21* BUN 16 18 24 30* 39* - 13 CREATININE 0.46* 0.53* 0.58 0.62 0.66 - 0.91 CALCIUM 10.3* 9.3 9.8 10.2 10.5* - 9.8 MAGNESIUM - 1.9 - 1.9 - - 2.3 PHOS - 1.3* - 3.4 2.0* - - - = values in this interval not displayed. Recent Labs Component Name 05/20/22 0336 05/19/22 1201 12/08/20 0000 PROT 4.9* 5.8* - ALB 2.4* 2.8* - TBILI 0.3 0.3 - AST 12 14 19 ALT 12 14 21 ALKPHOS 65 84 83 Recent Labs Component Name 05/20/22 1955 05/20/22 0948 05/19/22 1201 10/04/20 0417 09/29/20 0451 09/28/20 0155 INR - 1.8 1.7 - - 1.1 PTT 44.7* 25.7 - 30.9 - 101.4* - = values in this interval not displayed. CULTURES: Pending Urine culture U/A: WBC > 100 with positive nitrate and leukocyte esterase RECENT IMAGING: XR ABDOMEN KUB PORTABLE Result Date: 05/19/2022 IMPRESSION: Moderate gaseous distention throughout the colon with folding of the colon in the mid abdomen/left upper quadrant. Findings can be seen in the setting of early cecal volvulus. If clinicalsuspicion for acute abdomen is present, recommend CT abdomen pelvis with contrast. Alternatively, this can be seen in the setting of ileus and/or obstruction. Report dictated by Gareth Peraza MD (radiology administrator) I, AGUILAR MEDINA MD have personally reviewed and interpreted this examination/study. > Interpreting Provider: AGUILAR MEDINA MD on 05/19/2022 3:02 PM ASSESSMENT: Loc Anderson is a 81 year old female with complex medical history. She is admitted formanagement of severe and extended colonic fecal impaction along with a UTI which could be a cause of her ileus. Another reason for her continued ileus is her electrolyte abnormality marked mostly by her low K of 3 and especially her low P of 1.1 PLAN: - No acute surgical intervention as per ACS - Recommend adequate bowel regimen from the top and the bottom - Recommend electrolyte repletion - Recommend treatment of her UTI as soon as the culture is ready - No current surgical intervention is warranted, surgery will sign off. Please call us back for anyacute changes Chava Mauro MD ACS 05/21/2022 I have seen and examined the patient with the resident and I agree with the findings and plan of care as documented by the resident. 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 She was also thought to have possible GOO and NG placed and transferred to [facility] for further care and evaluation. She was started on IV zosyn and found to have UTI. She was found to have significant constipation and started on laxatives. Stabilized and transferred to the floor for further care. Subjective: no pain Objective: Blood pressure 111/48, pulse 82, temperature 97.5 ??F (36.4 ??C), temperature source Axillary, resp. rate 16, weight 82.5 kg (181 lb 14.1 oz), SpO2 94 %, not currently . Gen: NAD, A/O times 2 HEENT: NCAT RESP: Clear to auscultation CV: RRR systolic murmur throughout precordium GI: Soft NT slight distention hypoactive BS EXT: No edema. Neuro: paraplegia MAR reviewed . Recent Labs Component Name 05/20/22 0336 05/19/22 1201 01/18/21 1058 01/05/21 1450 12/08/20 0000 10/04/20 0417 10/03/20 0402 10/02/20 0507 10/01/20 0449 10/01/20 0449 09/30/20 0547 09/14/20 1553 03/05/19 1301 WBC 20.8* 31.8* 11.5* 9.4 13.7* 11.1* 11.5* 12.3* - 12.2* 10.3 - 7.0 RBC 4.25 4.96 5.34* 5.16 4.45 4.20 4.16 4.12 - 4.18 4.32 - 4.69 HGB 11.7* 13.7 11.5* 11.2* 10.6* 10.7* 10.4* 10.3* - 10.5* 10.7* - 12.6 HCT 35.7 40.7 39.5 39.5 35.4 35.7* 34.3* 33.9* - 34.5* 34.8* - 41.0 MCV 84.0 82.1 74.0* 76.6* 80 85.0 82.5 82.3 - 82.5 80.6* - 87.4 MCHC 32.8 33.7 29.1* 28.4* 29.9* 30.0* 30.3* 30.4* - 30.4* 30.7* - 30.7* PLTCOUNT 276 332 408 430* 400 261 255 249 - 276 281 - 319 NEUTPCT - - 69.7 - - 65.9 - - - 63.2 59.5 - - LYMPHPCT - - 11.6* - - 11.7* - - - 12.4* 16.7* - - MONOCYTPCT - - - 17.1* 13 - - - - - - - 9.1 EOSINPCT - - - 1.9 1 - - - - - - - 2.9 BASOPHILPCT - - 0.4 - - 0.7 - - - 1.0 0.9 - - GRANSIMMPCT - - - - - 2.6* - - - 4.7* 1.6* - - NEUTABS 15.81* 24.17* 8.00* - - 7.33* 9.32* 9.84* - 7.73* 6.12 - - LYMPHABS - - 1.33 1.18 1.3 1.30 1.04* 1.23 - 1.52 1.72 - 1.36 MONOCYTABS - - - 1.61* 1.7* - 0.92 0.86 - - - - 0.63 EOSINABS - - - - - - 0.12 0.37 - - - - - BASOABS - - 0.05 0.07 0.1 0.08 - - - 0.12* 0.09* - 0.04 IMMGRANSABS - - - 0.05 0.2* - - - - - - - 0.05 - = values in this interval not displayed. . Recent Labs Component Name 05/20/22 2150 05/20/22 1344 05/20/22 0336 05/19/22202405/19/22 1201 01/18/21 0941 01/05/21 1450 12/08/20 1000 12/08/20 0000 10/12/20 1209 10/04/20 0417 10/03/20 0402 SODIUM - - - - - 137 136 134* 135 - 136 134* POTASSIUM 2.4* 4.0 2.2* - 2.1* 4.2 3.0* 3.2* 3.3* - 4.7 4.5 CHLORIDE - - - - - 103 95* 97* 94* - 107 106 CO2 24 24 26 - 22 25 27 25 25 - 21* 22* BUN 16 18 24 - 39* 26* 31* 37* 39* - 13 12 CREATININE 0.46* 0.53* 0.58 - 0.66 0.87 1.13* 0.95 0.87 - 0.91 0.74 GLUCOSE 131* 142* 114 - 215* 123* 143* 168* 169* - 153* 142* CALCIUM 10.3* 9.3 9.8 - 10.5* 10.6* 11.5* 11.1* 11.4* - 9.8 9.8 ALT - - 12 - 14 - - - - 20 18 ALKPHOS - - 65 - 84 - - - 83 - 97 99 AST - - 12 - 14 - - - 19 - 15 16 TBIL - - - - - 0.2 - - 0.2 - 0.3 0.3 TPROT - - - - - - - - 6.9 - 5.7* 5.7* EGFR >90 >90 90 - 87* >60 46 56 62 - 59 >60 EGFRAFR - - - - - >60 56 >60 72 - >60 >60 ALBUMIN - - - - - - - - 4.4 - 3.2 3.2 - = values in this interval not displayed. / CT brain - no acute process 05/20 KUB - gastric tube - large stool burden in colon HTN (hypertension) POA: Yes Type 2 diabetes mellitus without complication (CMS/HCC) POA: Yes HSP (hereditary spastic paraplegia) (CMS/HCC) POA: Yes Urinary tract infection associated with indwelling urethral catheter (CMS/HCC) POA: Yes Chronic diastolic CHF (congestive heart failure) ([facility]/HCC) POA: Yes Chronic idiopathic constipation POA: Yes Hyperparathyroidism (CMS/HCC) POA: Yes Atrial fibrillation (CMS/HCC) POA: Yes Wheelchair bound POA: Yes Encephalopathy POA: Yes Chronic indwelling Schmitt catheter POA: Yes Ileus (CMS/HCC) POA: Yes Hypokalemia POA: Yes Hypernatremia POA: Yes 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 POA: Yes Assessment/Plan: 1) constipation with ileus - seen by Surgery and GI - cont NG, NPO, IVFs, replace electrolytes, given enemas - check KUB this am - abdomen benign and mild distention at this time - has chronic constipation possibly from hypercalcemia and hyperparathyroidism 2) sepsis due to UTI/pyelonephritis - improving, cultures unrevealing - await wbc trend this am andif continued improvement change zosyn to rocephin 3) Hypernatremia and hypokalemia and hyperclacemia - likely from poor fluid and po intake - K 2.4 this evening given 40 IV KCL - will repeat and add KCL to maintenance fluids as well - mild hypercalcemia check PTH 4) metabolic encephalopathy - due to above - improved per ICU notes, cont to monitor 5) sacral decubitus wound - mgt per wound care 6) hx PE/DVT and AF - on IV heparin for AC until able to take oral eliquis 7) DM 2 - cont SSI 8) MS with paraplegia and neurogenic bladder - cont Schmitt - seen by Urology - SP catheter outpt after UTI treated 9) hx breast cancer - s/p lumpectomy LDA: PIV, schmitt, rectal tube and NG Diet:NPO Antibiotic end date: TBD Consults: Urology, Surgery, GI DVT prophylaxis: IV heparin Code status: full Disposition: inpatient Moe Russell MD [facility] 05/21/2022 Feel free to text page me through [employer], login [employer] [facility] * Jarvis Hassan DO - 05/20/2022 6:16 PM CST MICU FELLOW PLAN OF CARE: 6:16 PM Ordered bilateral mittens due to agitation per nursing request. 9:41 PM Notified of critical K <2 and calcium 7 after re-draw of BMP from different vein. Prior BMP showed K 4.0 and Ca 9.3. Requested re-draw. 10:54 PM Repeat BMP: Latest Reference Range & Units 05/20/22 21:50 Sodium 136 - 145 mmol/L 149 (H) Potassium 3.5 - 4.5 mmol/L 2.4 (LL) Chloride 98 - 107 mmol/L 117 (H) CO2 22 - 29 mmol/L 24 Anion Gap 8 - 18 10 BUN 7 - 26 mg/dL 16 Creatinine 0.56 - 0.96 mg/dL 0.46 (L) eGFR >=90 mL/min/1.73 m2 >90 Glucose 70 - 115 mg/dL 131 (H) Calcium 8.4 - 10.2 mg/dL 10.3 (H) BUN/Creatinine Ratio 7 - 23 35 (H) NGT on LIS with 350 mL total output. FMS -350 mL. UOP -1860 mL. Reordered IV potassium 40 mEq x 1. Serial BMP's have been previously ordered q8h. Jarvis Hassan DO, PGY-6 Pulmonary & Critical Care Fellow Division of Pulmonary, Critical Care and Sleep Medicine [facility] * Fatoumata Jensen RN - 05/20/2022 6:00 PM CST Dolphin bed ordered at this time per wound RN instructions. [facility] * Timbo France RN - 05/20/2022 5:35 PM CST Images from the original note were not included. 05/20/22 1733 Pressure Injury Sacrum Assessment Date: 05/19/22 Present on admission?: Yes Dish Up Person Related?: No Location: Sacrum Wound Image Wound Bed Assessment Black;Deep purple;Brown;Dusky red;Pale/Non-granular Exudate Description Moderate Wound Margin Undefined edges Length (Cm) 12 CM Width (Cm) 17 CM Depth (Cm) 1 CM Tunneling (record depth in CM and clock location) 0 Undermining (record depth and clock location) 0 Staging (Pressure Ulcers only) Unstageable Erica-wound Skin Assessment Maceration;Erythema/Red Dressing/Treatment Cleansed;Hydrophilic;Dry dressing Dressing Status Changed Photo taken Yes - see Notes [facility] Wound/ Ostomy Note Height: Ht Readings from Last 1 Encounters: 03/06/21 : 1.651 m (5' 5 ) Weight: Wt Readings from Last 3 Encounters: 05/20/22 : 82.5 kg (181 lb 14.1 oz) 03/06/21 : 68 kg (150 lb) 02/19/21 : 76.2 kg (168 lb) BMI: Body mass index is 30.27 kg/m??. BSA: Body surface area is 1.95 meters squared. Date of Admission: 05/19/2022 Reason for consult: Wound/ostomy Eval Consult from Dr. Carrillo for present on admission . Past Medical History: Diagnosis Date ??? Asthma [...] of TIA (transient ischemic attack) 10/22/2017 ??? 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 HTN (hypertension) ??? Hyperparathyroidism 06/26/2018 ??? 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 IBS (irritable bowel syndrome) ??? Iron deficiency anemia due to chronic blood loss 12/12/2017 ??? Left ventricular hypertrophy 06/26/2018 ??? Lymphatic edema ??? 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 ER pos 97% (strong), ID pos 23% (moderate), Her-2 neg (1+ on [...] right middle lobe. Follow up with Dr. Camarog when you finish rx, trying to get [...] Type 2 diabetes mellitus without complication 01/07/2011 Assessments and Recommendations: Assessment: Patient was seen in the ICU, room 428. On assessment she has a large area with an unstagable pressure ulcer - see above for details. Daughter at bedside reports ongoing chronic ulcerationto sacrum but does not know what treatment patient was receiving. There is no odor present, drainage is dark brown. Interventions: routine nursing care Recommendations: - Frequent turns - Recommend low air loss mattress - Use pillows or positioning wedge (avoid positioning directly on trochanter when using side lying position) - Keep HOB below 30 degrees when medically feasible - Reduce Friction/Shear - Lift patient in bed with sheet or pad. DO NOT PULL OR DRAG - Single layer flat sheet for turning/microturns - Clean sacral wound with NS, dry, pack the deep open mid area with Triad and 4 x 4 gauze, apply Triad to the shallow wound parts, cover with ABD pad. Change daily and prn when soiled. - Off load heels with heel boots if patient cannot move legs spontaneously - Moisture/incontinence protection - dry skin well, apply protective barrier cream/ointment bid andprn - All external devices (braces/collars/etc) - follow guidelines for skin assessment and management - Bariatric low air loss pulsate bed for patients with BMI > 40 or body habitus not allowing forsacral off loading. Plan of care discussed with: nurse Fatoumata, patient and her family. Care completed during my visit. Orders updated in chart. [facility] * Fatoumata Jensen RN - 05/20/2022 4:37 PM CST Patient tolerating ice chips w/o overt signs of aspiration at this time. [facility] * Lorena Carrillo MD - 05/20/2022 2:22 PM CST MICU Family notification Daughter was updated today at bedside about current situation and plan of management. Voiced complete understanding and agreement. Lorena Dixon MD Pulmonary Diseases & Critical Care Fellow [employer], [facility] Pager - Amion [facility] * Clarisse Gibson RN - 05/20/2022 1:51 PM CST Case Management Initial Assessment Case Management screen completed Anticipated Discharge Date: 05/24/22 Transportation at Discharge: Ambulance Anticipated level of care at discharge: Care Home - Non Skilled Anticipated level of care provider: None Prior to admission level of care: Other Prior to admit provider: [facility] ER Discharge Goals and Plans: Plans: Discharge needs identified. See progress notes for details. Case Management to follow for discharge planning. Comments: Patient lives at [facility] Lives with: Other (Comment) ([facility]) Physical Limitations: Wheelchair Bound Requires Assistance With: Mobility;Toileting;Hygiene;Transfers;Housekeeping;Meal Preparation;Medication Administration;Shopping Insurance: Payer/Plan Subscriber Name Rel Member # Group # MEDICARE - MEDICARE P* MAGED ANDERSONOISE Jeffrey [id number] [address] [employer] - * LOC ANDERSON [id number] [address] [address], 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 yes Patient/Family provided with list of resources? 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 For any questions or needs please contact: Joint Filler Name/Phone number: Clarisse Gibson RN [phone] [facility] * Jovi Padilla MD - 05/20/2022 11:08 AM CST Images from the original note were not included. ACUTE CARE SURGERY PROGRESS NOTE ADMIT: 05/19/2022 11:30 AM LOS: 1 day 05/20/2022 HISTORY: Loc Anderson is a 81 year old female PMHx of HTN,??T2DM,?Afib, DVT/PE (on eliquis), hereditary spastic paraplegia,??MS,??neurogenic bladder (chronic schmitt catheter),??breast cancer,??cognitive impairment (baseline AOx2- 3) [facility] resident??admitted 05/19/2022??with altered mental status and low grade fever. According to family at bedside, patient was noted to be more confused and was febrile at the care home. She was taken to OSH ([facility]) and due to her abdominal distension a CT abdomen was obtained and was suspicious for gastric outlet obstruction, associated with worsening chronic large bowel dilatation. NG tube was placed OSH, patient was started on Zosyn and was [facility] to [facility]. SUBJECTIVE: - Patient is stable and not complaining of abdominal pain - A rectal tube was placed overnight for decompression along with the NGT - Patient will remain NPO until adequate return of bowel function OBJECTIVE: Vitals: Blood pressure 139/66, pulse 93, temperature 97.1 ??F, temperature source Axillary, resp. rate (!) 5, weight 82.5 kg (181 lb 14.1 oz), SpO2 96 %, not currently . Temp: [97.1 ??F-98.1 ??F] 97.1 ??F Pulse: [86-101] 93 Resp: [5-22] 5 BP: (96-148)/(43-69) 139/66 Physical Exam Gen: No acute distress, Sitting in the chair/lying in the bed comfortably HEENT: Atraumatic, Normocephalic, NGT to LIWS CV: Regular, rate and rhythm. Pulm: breath sounds equal & clear bilaterally. Non-labored respirations. Abd: Soft, distended, no abdominal tenderness with deep palpation, no rebound tenderness nor guarding LUIS ANTONIO performed and hard stool ball on exam MSK: Range of motion intact, no edema, cyanosis or clubbing. Neuro: Moving all extremities spontaneously, no focal deficits. Psych: Appropriate mood and affect. DIET: DIET NPO Except: NO EXCEPTIONS Ins/Outs: 05/19 07 - 05/20 07 In: 1048.6 [I.V.:598.6] Out: 2870 [Urine:2225; Drains:295] RECENT LABS: Recent Labs Component Name 05/20/22 0336 05/19/22 12001/18/21 1058 WBC 20.8* 31.8* 11.5* HGB 11.7* 13.7 11.5* HCT 35.7 40.7 39.5 MCV 84.0 82.1 74.0* Recent Labs Component Name 05/20/22 0336 05/19/22202405/19/22 12010/12/20 1209 10/04/20 0417 10/03/20 0402 10/02/20 0507 10/01/20 0449 NA 148* 146* 142 - - - - - CL 114* 112* 110* - - - - - CO2 26 25 22 - 21* 22* - 20* BUN 24 30* 39* - 13 12 - 13 CREATININE 0.58 0.62 0.66 - 0.91 0.74 - 0.81 CALCIUM 9.8 10.2 10.5* - 9.8 9.8 - 9.9 MAGNESIUM - 1.9 - - 2.3 2.2 - 2.1 PHOS - 3.4 2.0* - - - - 2.6 - = values in this interval not displayed. Recent Labs Component Name 05/20/22 0336 05/19/22 12012/08/20 0000 PROT 4.9* 5.8* - ALB 2.4* 2.8* - TBILI 0.3 0.3 - AST 12 14 19 ALT 12 14 21 ALKPHOS 65 84 83 Recent Labs Component Name 05/20/22 0948 05/19/22 1201 10/04/20 0417 10/03/20 0402 09/29/20 0451 09/28/20 0155 INR 1.8 1.7 - - - 1.1 PTT 25.7 - 30.9 33.1 - 101.4* - = values in this interval not displayed. CULTURES: Pending Urine culture U/A: WBC > 100 with positive nitrate and leukocyte esterase RECENT IMAGING: XR ABDOMEN KUB PORTABLE Result Date: 05/19/2022 IMPRESSION: Moderate gaseous distention throughout the colon with folding of the colon in the mid abdomen/left upper quadrant. Findings can be seen in the setting of early cecal volvulus. If clinicalsuspicion for acute abdomen is present, recommend CT abdomen pelvis with contrast. Alternatively, this can be seen in the setting of ileus and/or obstruction. Report dictated by Gareth Peraza MD (radiology administrator) I, AGUILAR MEDINA MD have personally reviewed and interpreted this examination/study. > Interpreting Provider: AGUILAR MEDINA MD on 05/19/2022 3:02 PM ASSESSMENT: Loc Anderson is a 81 year old female with complex medical history. She is admitted formanagement of severe and extended colonic fecal impaction along with a UTI which could be a cause of her ileus. PLAN: - No acute surgical intervention as per ACS - Recommend q6h HOG enemas for 24 hours - Recommend treatment of her UTI as soon as the culture is ready Chava Mauro MD ACS 05/20/2022 I have seen and examined the patient with the resident and I agree with the findings and plan of care as documented by the resident. Date of Service: 05/20/2022 81-year-old female with multiple medical problems presents with evidence of severe constipation. Reviewed outside hospital CT scan with our radiologist. There is no evidence of volvulus, she does have significant constipation, Patient with a UTI, which also could cause ileus and elevated white count. Currently NPO IV fluids NG tube for decompression. Recommend continued enemas. Jovi Padilla MD 05/20/2022 11:57 AM [facility] * Lorena Carrillo MD - 05/20/2022 9:35 AM CST Images from the original note were not included. MEDICAL ICU Progress Note Name: Loc Anderson Admit Date and Time: 05/19/2022 11:30 AM LOS: LOS: 1 day Rm/Bed: 428/01 Brief Hospital Course: Loc Anderson is a 81 year old female w/ PMHx of HTN, T2DM, Afib, DVT/PE (on eliquis), hereditary spastic paraplegia, MS, neurogenic bladder (chronic schmitt cathter), breast cancer, cognitive impairment (baseline AOx2-3) [facility] resident admitted 05/19/2022 with altered mental status and low grade fever. Patient was noted to be more confused, weak and had Temp of 101 at the [facility] afterwhich she was brought to OSH ([facility]). Patient abdomen noted to be severely distended and tender.Temp was 100.3, HR 112, BP 146/74, SPO2 92% on RA. UA showed >75 WBCs, RBCs 11-20 Leuk esterase 2+ X-ray showed fluid filled stomach and multiple dilate bowel loops. CT abd/pelvis confirmed the above and showed suspected gastric outlet obstruction, associated with worsening chronic large bowel dilatation. NG tube was placed OSH, patient was started on Zosyn and was transferred to our facility for higher level of care. On arrival, the patient was alert and oriented to self only, NG tube in place, abdomen distended, looks comfortable. ACS service were consulted. Family were at bedside (2 daughters) and they confirmed the history above. Rectal tube was placed and patient recieved one Hog enema Interval History: No acute events overnight, remained HDS NG tube in place to suction, rectal tube in place Severe hypokalemia Had good fecal output Past Medical History Past Medical History: Diagnosis Date [...] of TIA (transient ischemic attack) 10/22/2017 ??? 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 HTN (hypertension) ??? Hyperparathyroidism 06/26/2018 ??? 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 IBS (irritable bowel syndrome) ??? Iron deficiency anemia due to chronic blood loss 12/12/2017 ??? Left ventricular hypertrophy 06/26/2018 ??? Lymphatic edema ??? 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 ER pos 97% (strong), ID pos 23% (moderate), Her-2 neg (1+ on [...] pt. ??? Primary hypothyroidism 05/06/2018 ??? Shingles 2003, 2007 ??? Sleep apnea 01/07/2011 ??? Small vessel disease, cerebrovascular ??? TIA (transient ischemic attack) 2000, 08/11/2008 ??? Type 2 diabetes mellitus without complication 01/07/2011 Past Surgical History Past Surgical History: Procedure Laterality [...] AND LT ARM ??? THYROID NEEDLE BIOPSY Family History Family History Problem Relation Name Age of Onset ??? Cancer - Breast Mother ??? CAD (Coronary Artery Disease) Father CHF ??? CAD (Coronary Artery Disease) Brother CHF Social History Social History Socioeconomic History ??? Marital status: Spouse name: Not on file ??? Number of children: 3 ??? Years of education: Not on file ??? Highest education level: Not on file Occupational History ??? 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 Smoking status: Never ??? Smokeless tobacco: Never Vaping Use ??? Vaping Use: Never used Substance and Sexual Activity ??? Alcohol use: No Alcohol/week: 0.0 standard drinks ??? Drug use: No ??? Sexual activity: Not Currently Other Topics Concern ??? Service No ??? Blood Transfusions No ??? Caffeine Concern Not Asked ??? Occupational Exposure Not Asked ??? Hobby Hazards Not Asked ??? Sleep Concern No Comment: fair ??? Stress Concern Not Asked ??? Weight Concern Not Asked ??? Special Diet No Comment: average ??? Back Care Not Asked ??? Exercise Yes Comment: limited mobility ??? Bike Helmet Not Asked ??? Seat Belt No Comment: wears ??? Self-Exams Not Asked Social History Narrative ??? Not on file Social Determinants of Health Financial Resource Strain: Not on file Food Insecurity: Not on file Transportation Needs: Not on file Physical Activity: Not on file Stress: Not on file Social Connections: Not on file Intimate Partner Violence: Not on file Housing Stability: Not on file Allergies Allergies Allergen Reactions ??? Advair Diskus YEAS INFECTION ??? Aricept [Donepezil] Other I dont remember ??? Diltiazem Swelling Patient takes verapamil as home med -2020 ??? Metformin Diarrhea ??? Black Pepper [Piper Longum] Unknown ??? Fluticasone Diarrhea ??? Salmeterol Diarrhea ??? Sotalol Other Hair loss Home Medications No current facility-administered medications on file prior to encounter. Current Outpatient Medications on File Prior to Encounter Medication Sig Dispense Refill ??? ALPRAZolam (XANAX) 0.25 MG tablet Take 0.25 mg by mouth 2 times daily as needed for Anxiety ??? amitriptyline (ELAVIL) 25 MG tablet Take 2 (two) tablets by mouth at bedtime 180 tablet 3 ??? 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 BD PEN NEEDLE HAYDEN U/F 32G X 4 MM MISC USE TO INJECT INSULIN ONCE DAILY ??? canagliflozin (INVOKANA) 100 MG tablet Take 100 mg by mouth daily before breakfast ??? Cranberry-Vitamin C (AZO CRANBERRY URINARY TRACT) 250-60 MG Take 2 tablets by mouth once daily ??? CVS SENNA 8.6 MG tablet Take 1 tablet by mouth 2 times daily ??? Cyanocobalamin (B-12) 1000 MCG TBCR Take by mouth once daily. ??? denosumab (PROLIA) 60 MG/ML SC injection Inject 60 mg subcutaneously Every 180 days ??? docusate sodium (COLACE) 100 MG capsule Take 100 mg by mouth once daily ??? dorzolamide (TRUSOPT) 2 % ophthalmic solution Instill 1 drop into both eyes 2 times daily ??? esomeprazole (NEXIUM) 40 MG capsule TAKE 1 CAPSULE DAILY 90 capsule 3 ??? flecainide (TAMBOCOR) 50 MG tablet Take 50 mg by mouth once daily ??? FREESTYLE LITE STRIPS test strip TEST BLOOD SUGARS THREE TIMES A DAY ??? furosemide (LASIX) 40 MG tablet Take 1 (one) tablet by mouth once daily 90 tablet 2 ??? glimepiride (AMARYL) 1 MG tablet Take 1 mg by mouth 3 times daily 2 tabs in the AM, 2 tabs at noon and 1 tab at bedtime ??? insulin glargine (LANTUS) pen Inject 10 Units subcutaneously once daily ??? levothyroxine (SYNTHROID) 75 MCG tablet Take 1 (one) tablet by mouth once daily 90 tablet 4 ??? linaCLOtide (LINZESS) 290 MCG capsule Take 290 mcg by mouth daily before breakfast Take on an empty stomach at least 30 minutes prior to first meal of the day. ??? metOLazone (ZAROXOLYN) 2.5 MG tablet Take 2.5 mg by mouth Take 1 tab twice a week on Friday and ??? multivitamin with iron (ONE A DAY WITH IRON) tablet Take 1 Tab by mouth once daily. ??? Other pneumatic compression pump twice a day on her legs for lymphedema. Setting are between 40to 50 mmgh DX lymphedema 1 Each 0 ??? 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 polyethylene glycol 3350 (MIRALAX) 17 GM/SCOOP powder TAKE 1-2 CAPFULS OF MIRALAX DAILY IN THE EVENING FOR ADDITIONAL CONSTIPATION MANAGEMENT. ??? potassium chloride ER (KLOR-CON) 20 MEQ tablet TAKE 1 TABLET BY MOUTH FOUR TIMES A DAY 360 tablet 2 ??? PROLENSA 0.07 % opthalmic solution Instill 1 drop into right eye once daily 2 ??? rosuvastatin (CRESTOR) 10 MG tablet TAKE 1 TABLET BY MOUTH EVERYDAY AT BEDTIME 90 tablet 2 ??? SITagliptin (JANUVIA) 100 MG tablet Take 100 mg by mouth once daily ??? spironolactone (ALDACTONE) 25 MG tablet Take 25 mg by mouth once daily ??? trospium (SANCTURA) 20 MG tablet Take 20 mg by mouth 2 times daily ??? verapamil SR 24hr (VERELAN) 120 MG capsule Take 120 mg by mouth at bedtime ??? vitamin D3 (CHOLECALCIFEROL) 25 MCG (1000 UNITS) tablet Take 1,000 Units by mouth once daily ??? Wheat Dextrin (BENEFIBER PO) Take 1 packet by mouth once daily Medications ??? 0.9% NaCl 3 mL Intracatheter q8h ??? insulin aspart 0-6 Units Subcutaneous q4h ??? pantoprazole 40 mg Intravenous QDAY ??? piperacillin-tazobactam 3.375 g Intravenous q8h ??? potassium chloride 40 mEq Intravenous Once ??? [id number]-itwdwxdm 360 mL Rectal q6h dextrose 5 % and 0.45% NaCl, , Last Rate: 75 mL/hr at 05/20/22 0629 heparin, 400-2,100 Units/hr ??? SALINE LOCK, INSERT AND MAINTAIN AND 0.9% NaCl AND 0.9% NaCl ??? dextrose IV for hypoglycemia OR dextrose IV for hypoglycemia ??? glucagon ??? glucose (Diabetic Use) ??? glucose (Diabetic Use) gel ??? glucose chew tab Temp: [97.1 ??F (36.2 ??C)-98.1 ??F (36.7 ??C)] 97.1 ??F (36.2 ??C) Pulse: [86-101] 93 Resp: [5-22] 5 BP: (96-148)/(43-69) 139/66 Intake/Output Summary (Last 24 hours) at 05/20/2022 1132 Last data filed at 05/20/2022 1000 Gross per 24 hour Intake 1408.59 ml Output 3370 ml Net -1961.41 ml Physical Exam: General: Lying in bed, Elderly, comfortable looking HEENT: PERRL, EOMI, MMM, No JVD, NG Tube in place Lungs: CTAB no w/r/r Heart: RRR no m/r/g Abdomen: distended, mild tenderness Extremity: No Edema, Pulses 2+, deep, large decub ulcer Skin: Warm and dry. No rashes or bruising noted. Neurological: alert and oriented to self only, paraplegia : Schmitt in Place Intake/Output Summary (Last 24 hours) at 05/20/2022 1132 Last data filed at 05/20/2022 1000 Gross per 24 hour Intake 1408.59 ml Output 3370 ml Net -1961.41 ml Labs: CBC: Recent Labs Component Name 05/20/22 0336 05/19/22 1201 01/18/21 1058 WBC 20.8* 31.8* 11.5* HGB 11.7* 13.7 11.5* BMP: Recent Labs Component Name 05/20/22 0336 05/19/22202405/19/22 1201 10/12/20 1209 10/04/20 0417 10/03/20 0402 10/02/20 0507 10/01/20 0449 NA 148* 146* 142 - - - - - CL 114* 112* 110* - - - - - CO2 26 25 22 - 21* 22* - 20* BUN 24 30* 39* - 13 12 - 13 CREATININE 0.58 0.62 0.66 - 0.91 0.74 - 0.81 CALCIUM 9.8 10.2 10.5* - 9.8 9.8 - 9.9 MAGNESIUM - 1.9 - - 2.3 2.2 - 2.1 PHOS - 3.4 2.0* - - - - 2.6 - = values in this interval not displayed. LFT: Recent Labs Component Name 05/20/22 0336 05/19/22 1201 12/08/20 0000 PROT 4.9* 5.8* - ALB 2.4* 2.8* - ALKPHOS 65 84 83 AST 12 14 19 ALT 12 14 21 Coagulation: Recent Labs Component Name 05/20/22 0948 05/19/22 1201 09/28/20 0155 PT 20.5* 19.9* 13.9 INR 1.8 1.7 1.1 Cardiac markers: Recent Labs Component Name 09/30/20 1648 09/27/20 0455 09/26/20 2257 TROPONINI 0.051* 0.080* 0.079* ABG:@[email or web address]@ MICROBIOLOGY Microbiology Results (Displays last 21 days for this encounter ONLY) Procedure Component Value - Date/Time C DIFFICILE GDH AG + TOXIN A+B [[id number]] (Normal) Collected: 05/19/22 1704 Lab Status: Final result Specimen: Stool from Feces Updated: 05/19/22 2106 C difficile GDH antigen & toxin A/B NEGATIVE Narrative: Negative for toxigenic C. difficile CULTURE URINE [[id number]] Collected: 05/19/22 1537 Lab Status: In process Specimen: Urine Cath [place] Updated: 05/19/22 1605 CULTURE BLOOD [[id number]] Collected: 05/19/22 1236 Lab Status: In process Specimen: Blood Peripheral Updated: 05/19/22 1238 CULTURE BLOOD [[id number]] Collected: 05/19/22 1218 Lab Status: In process Specimen: Blood Peripheral Updated: 05/19/22 1255 IMAGING No results found. Medications ??? 0.9% NaCl 3 mL Intracatheter q8h ??? insulin aspart 0-6 Units Subcutaneous q4h ??? pantoprazole 40 mg Intravenous QDAY ??? piperacillin-tazobactam 3.375 g Intravenous q8h ??? potassium chloride 40 mEq Intravenous Once ??? wymle-gdp-ivdkaihr 360 mL Rectal q6h Continuous Medications dextrose 5 % and 0.45% NaCl, , Last Rate: 75 mL/hr at 05/20/22 0629 heparin, 400-2,100 Units/hr PRN Medications ??? SALINE LOCK, INSERT AND MAINTAIN AND 0.9% NaCl AND 0.9% NaCl ??? dextrose IV for hypoglycemia OR dextrose IV for hypoglycemia ??? glucagon ??? glucose (Diabetic Use) ??? glucose (Diabetic Use) gel ??? 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, estrogen receptor positive (CMS/HCC) POA: Yes Chronic idiopathic constipation POA: Yes Hyperparathyroidism (CMS/HCC) POA: Yes Atrial fibrillation (CMS/HCC) POA: Yes Ambulatory dysfunction POA: Yes Wheelchair bound POA: Yes Encephalopathy POA: Yes Chronic indwelling Schmitt catheter POA: Yes PLAN: Neurological Toxic metabolic encephalopathy in the context of dementia baseline (AOX 3), wheelchairbound Probably due to sepsis vs electrolytes disturbance vs other Hx of Hereditary spastic paraplegia Hx of Neurogenic bladder (chronic schmitt cathter) Sepsis work up as below Patient looks pain free -Sedation-not required, avoid any psychotropic medications - Monitor mental status every hour and notify MD if any changes - Fall precautions, Seizure precautions, HOB elevated - sleep hygiene, frequent re-orientation Cardiovascular: Hypertension, well controlled for now Afib (on eliquis at home) Hx of DVT/PE, immobile, hx of breast cancer Hold home BP meds for now Will start heparin gtt for Afib AC with no bolus Hemodynamic monitoring - monitor MAP to goal of >65mmHg, Titrate pressor to min amt keep to goalof above MAP Check echo, trend cardiac enzymes , EKG , CXR , Diuretics , Rhythm control -sinus Pulmonary: No acute issues Per chart, patient has hx of asthma, currently o nRA - If needed, titrate Fi O2 to the lowest needed to keep Sats > 92% - Keep HOP elevated 30 degrees, oral care, aspiration precautions GI: Chronic constipation Possible gastric outlet obstruction per OSH image Could be worsened ileus, due to severe hypokalemia and chronic neurogenic de fecit and immobility Will keep NPO for now NG tube to LIS Continue zosyn for now Received one Hog enema on 05/19 will give another Hog enema today Having good BM so far KUB showed still large fecal burden ACS and GI consulted daniel recs Renal: Hypernatremia, due to dehydration Hypokalemia, nutritional vs excessive losses? was started on D5 05/20 NS continue for now replete K aggressively and monitor Hx of Neurogenic bladder (chronic schmitt catheter) Will consult urology for chronic schmitt mgmt Electrolytes: Monitor chem 7 and Mg every 24 hours and replace Mg if less than1.8 or if K < 3.5 Endocrine: Hx of hyperparathyroidism, hypercalcemia T2DM Received 1 L of IV fluids on admission Continue D5 1/2 NS as for now Monitor with SSI Monitor accucheck every 4 hours and use sliding scale to keep between glucose between 140 - 180 I.D.: Urosepsis Fu blood and urine cultures Had hx of E coli and enterococcus, was susceptible to Zosyn Continue zosyn for now Consulted wound nurse for the decub ulcer Goddard culture if Tmax > 101.5 - Antibiotics and monitor drug levels and redose based on creatinineclearance Heme/Onc: Leukocytosis, with left shift, improving due to sepsis Work up and treatment as above Hx of breast cancer, on suppressive therapy for 5 years Monitor counts for now Transfusion Protocol: Hb < 7, Plt < 10 LDA: Prophylaxis: DVT prophylaxis: [] Lovenox 40mg , [] Lovenox 30mg, [x] Sq Heparin GI prophylaxis: PPI Aspiration precautions with elevation of HOB by 30 degrees. Fluids: D5 1/2 NS @ 75 ml/hr Diet: DIET NPO Except: NO EXCEPTIONS Activity: Ad Kathryn Disposition: Transferred later to the floor Code: Full Code Lorena Dixon MD Pulmonary / Critical Care Fellow Division of Pulmonary, Critical Care, & Sleep Medicine [facility] Pager-Amion [facility] Associated attestation - Brayden Villeda MD - 05/20/2022 1:43 PM [facility] I have seen and examined the patient with the resident and I agree with the findings and plan of care as documented by the resident except as noted below: 81-year-old female patient with history of hypertension, diabetes, A. fib, DVT/PE on Eliquis, hereditary spastic paraplegia, MS, neurogenic bladder on chronic Schmitt catheter, breast cancer who presented from a care home with altered mental status and fever, found to be confused by her family, initial work-up revealed positive urine analysis, x-ray revealed multiple dilated bowel loops and fluid-filled stomach, CT abdomen pelvis at the outside hospital was concerning for gastric outlet obstruction, she was transferred to our facility for surgical evaluation. She was evaluated by the surgical team yesterday, CT did not reveal gastric outlet obstruction however the patient is severely consti pated, severely dilated bowel loops and stomach. She was managed conservatively with enemas and IV fluids. Today the patient appears less confused. She is awake, answering questions, pleasant. Knows her daughters and their names. She is still confused of where she is and about the date. Abdomen is soft, it is nontender. HTN (hypertension) POA: Yes Type 2 diabetes mellitus without complication (CMS/HCC) POA: Yes HSP (hereditary spastic paraplegia) ([facility]) POA: Yes Urinary tract infection associated with indwelling urethral catheter ([facility]/HCC) POA: Yes Chronic diastolic CHF (congestive heart failure) ([facility]/HCC) POA: Yes Chronic idiopathic constipation POA: Yes Hyperparathyroidism (CMS/HCC) POA: Yes Atrial fibrillation (CMS/HCC) POA: Yes Wheelchair bound POA: Yes Encephalopathy POA: Yes Chronic indwelling Schmitt catheter POA: Yes Ileus (CMS/HCC) POA: Yes Hypokalemia POA: Yes Hypernatremia POA: Yes I have reviewed the outside hospital CT scan with Dr. Jovi Padilla and the radiology administrator. There is no evidence of volvulus. The radiology administrator. The patient is severely constipated with multiple dilated bowel loops and dilated stomach. At this time we will keep the NG tube in place to low in termittent wall suction. We will continue enemas twice a day and see if this helps. We have consulted the gastroenterology team to assist with management of her constipation. Surgical team would liketo hold off on starting diet at this time, we will readdress this tomorrow. Continue to replace potassium aggressively. Unfortunately we cannot use the oral route. She received 40 mEq of IV potassium this morning, I will give her another 40 mEq and recheck her potassium to make sure we are heading in the right direction. If her potassium fails to improve, I will consult nephrology given her severe hypokalemia. Monitor her telemetry. Continue D5 half NS at 75 cc/h given hypernatremia and lack of oral intake and severe constipation. Continue Zosyn. Follow-up on urine culture and blood cultures. Her urine analysis was suggestive ofUTI. Her chronic Schmitt catheter was replaced. We will consult as the patient was supposed to have a suprapubic catheter soon. Her white count has improved. Consult wound care nurse regarding decubitus wound that was present on admission. Does not look infected. Overall her encephalopathy appears to be toxic metabolic in nature. She has improved according to her family today. She is more alert and more coherent however will not very well oriented. Continue to monitor for now. Obtain CT head today before starting anticoagulation. The patient history of PE and DVT and A. fib, on Eliquis at home, hold Eliquis for now and start heparin drip without boluses if her CT head is negative for any bleed. DVT prophylaxis: We will be on heparin drip Date of service: 05/20/2022 Brayden Villeda MD Media Sales Representative of Internal Medicine Division of Pulmonary, Critical Care and Sleep Medicine [facility] Pager: [phone] * Kelly Cook - 05/19/2022 2:50 PM CST Die Cutting Machine Operator received a call from patient's elastic attacher chainstitch requesting that heater operator visit and pray with this patient and let them know that he will visit tomorrow. Die Cutting Machine Operator visited and prayed with patient and her family. Pastoral care remains available continuously in the hospital. Kelly Cook 05/19/2022 3:30 PM [facility] * Lorena Carrillo MD - 05/19/2022 2:34 PM CST Family Notification Documentation Contact made: 05/19/2022 2:34 PM Person(s) contacted: 2 daughters at bedside Method of communication: In-person Duration of discussion: 20 minutes Summary of discussion Current situation and plan of management was discussed with daughters in details All questions were answered, they voiced complete understanding and agreement Lorena Dixon MD Pulmonary Diseases & Critical Care Fellow [employer], [facility] Pager - Amion [facility] documented in this encounter H&P Notes * Lorena Carrillo MD - 05/19/2022 12:34 PM CST Images from the original note were not included. MEDICAL ICU History and Physical Name: Loc Anderson Admit Date and Time: 05/19/2022 11:30 AM LOS: LOS: 0 days Rm/Bed: 428/ CC: altered mental status HISTORY: History was obtained from patient, and medical chart. Loc Anderson is a 81 year old female w/ PMHx of HTN, T2DM, Afib, DVT/PE (on eliquis), hereditary spastic paraplegia, MS, neurogenic bladder (chronic schmitt cathter), breast cancer, cognitive impairment (baseline AOx2-3) [facility] resident admitted 05/19/2022 with altered mental status and low grade fever. According to family at bedside, patient was noted to be more confused, weak and had Temp of 101 at the [facility] afterwhich she was brought to OSH ([facility]). Patient abdomen noted to be severely distended and tender. Temp was 100.3, HR 112, BP 146/74, SPO2 92% on RA. Labs showed WBC 31.1, HB 15.2, PLT 419, BUN/CR. 47/0.9 Ca 11.2, normal LFTs. UA showed >75 WBCs, RBCs 11-20 Leuk e sterase 2+ X-ray showed fluid filled stomach and multiple dilate bowel loops. CT abd/pelvis confirmed the above and showed suspected gastric outlet obstruction, associated with worsening chronic large bowel dilatation. NG tube was placed OSH, patient was started on Zosyn and was transferred to our facility for higher level of care. On arrival, the patient was alert and oriented to self only, NG tube in place, abdomen distended, looks comfortable. ACS service were consulted. Family were at bedside (2 daughters) and they confirmed the history above. Past Medical History Past Medical History: Diagnosis Date [...] or obstruction 1977 ??? Familial spastic paraplegia 1980 ??? Fracture of sacrum 05/1999 [employer] ??? Glaucoma 06/2003 ??? Heart murmur 01/27/2004, 03/13/2004 ??? History of TIA (transient ischemic attack) 10/22/2017 ??? 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 HTN (hypertension) ??? Hyperparathyroidism 06/26/2018 ??? 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 IBS (irritable bowel syndrome) ??? Iron deficiency anemia due to chronic blood loss 12/12/2017 ??? Left ventricular hypertrophy 06/26/2018 ??? Lymphatic edema ??? 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 ER pos 97% (strong), ID pos 23% (moderate), Her-2 neg (1+ on [...] Type 2 diabetes mellitus without complication 01/07/2011 Past Surgical History Past Surgical History: Procedure Laterality [...] AND LT ARM ??? THYROID NEEDLE BIOPSY Family History Family History Problem Relation Name Age of Onset ??? Cancer - Breast Mother ??? CAD (Coronary Artery Disease) Father CHF ??? CAD (Coronary Artery Disease) Brother CHF Social History Social History Socioeconomic History ??? Marital status: Spouse name: Not on file ??? Number of children: 3 ??? Years of education: Not on file ??? Highest education level: Not on file Occupational History ??? 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 Smoking status: Never ??? Smokeless tobacco: Never Vaping Use ??? Vaping Use: Never used Substance and Sexual Activity ??? Alcohol use: No Alcohol/week: 0.0 standard drinks ??? Drug use: No ??? Sexual activity: Not Currently Other Topics Concern ??? Service No ??? Blood Transfusions No ??? Caffeine Concern Not Asked ??? Occupational Exposure Not Asked ??? Hobby Hazards Not Asked ??? Sleep Concern No Comment: fair ??? Stress Concern Not Asked ??? Weight Concern Not Asked ??? Special Diet No Comment: average ??? Back Care Not Asked ??? Exercise Yes Comment: limited mobility ??? Bike Helmet Not Asked ??? Seat Belt No Comment: wears ??? Self-Exams Not Asked Social History Narrative ??? Not on file Social Determinants of Health Financial Resource Strain: Not on file Food Insecurity: Not on file Transportation Needs: Not on file Physical Activity: Not on file Stress: Not on file Social Connections: Not on file Intimate Partner Violence: Not on file Housing Stability: Not on file Allergies Allergies Allergen Reactions ??? Advair Diskus YEAS INFECTION ??? Aricept [Donepezil] Other I dont remember ??? Diltiazem Swelling Patient takes verapamil as home med -2020 ??? Metformin Diarrhea ??? Black Pepper [Piper Longum] Unknown ??? Fluticasone Diarrhea ??? Salmeterol Diarrhea ??? Sotalol Other Hair loss Home Medications No current facility-administered medications on file prior to encounter. Current Outpatient Medications on File Prior to Encounter Medication Sig Dispense Refill ??? ALPRAZolam (XANAX) 0.25 MG tablet Take 0.25 mg by mouth 2 times daily as needed for Anxiety ??? amitriptyline (ELAVIL) 25 MG tablet Take 2 (two) tablets by mouth at bedtime 180 tablet 3 ??? 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 BD PEN NEEDLE HAYDEN U/F 32G X 4 MM MISC USE TO INJECT INSULIN ONCE DAILY ??? canagliflozin (INVOKANA) 100 MG tablet Take 100 mg by mouth daily before breakfast ??? Cranberry-Vitamin C (AZO CRANBERRY URINARY TRACT) 250-60 MG Take 2 tablets by mouth once daily ??? [employer]S SENNA 8.6 MG tablet Take 1 tablet by mouth 2 times daily ??? Cyanocobalamin (B-12) 1000 MCG TBCR Take by mouth once daily. ??? denosumab (PROLIA) 60 MG/ML SC injection Inject 60 mg subcutaneously Every 180 days ??? docusate sodium (COLACE) 100 MG capsule Take 100 mg by mouth once daily ??? dorzolamide (TRUSOPT) 2 % ophthalmic solution Instill 1 drop into both eyes 2 times daily ??? esomeprazole (NEXIUM) 40 MG capsule TAKE 1 CAPSULE DAILY 90 capsule 3 ??? flecainide (TAMBOCOR) 50 MG tablet Take 50 mg by mouth once daily ??? FREESTYLE LITE STRIPS test strip TEST BLOOD SUGARS THREE TIMES A DAY ??? furosemide (LASIX) 40 MG tablet Take 1 (one) tablet by mouth once daily 90 tablet 2 ??? glimepiride (AMARYL) 1 MG tablet Take 1 mg by mouth 3 times daily 2 tabs in the AM, 2 tabs at noon and 1 tab at bedtime ??? insulin glargine (LANTUS) pen Inject 10 Units subcutaneously once daily ??? levothyroxine (SYNTHROID) 75 MCG tablet Take 1 (one) tablet by mouth once daily 90 tablet 4 ??? linaCLOtide (LINZESS) 290 MCG capsule Take 290 mcg by mouth daily before breakfast Take on an empty stomach at least 30 minutes prior to first meal of the day. ??? metOLazone (ZAROXOLYN) 2.5 MG tablet Take 2.5 mg by mouth Take 1 tab twice a week on Friday and ??? multivitamin with iron (ONE A DAY WITH IRON) tablet Take 1 Tab by mouth once daily. ??? Other pneumatic compression pump twice a day on her legs for lymphedema. Setting are between 40to 50 mmgh DX lymphedema 1 Each 0 ??? Other Order to admit to [facility] for [facility] care 1 Each 0 ??? polyethylene glycol 3350 (MIRALAX) 17 GM/SCOOP powder TAKE 1-2 CAPFULS OF MIRALAX DAILY IN THE EVENING FOR ADDITIONAL CONSTIPATION MANAGEMENT. ??? potassium chloride ER (KLOR-CON) 20 MEQ tablet TAKE 1 TABLET BY MOUTH FOUR TIMES A DAY 360 tablet 2 ??? PROLENSA 0.07 % opthalmic solution Instill 1 drop into right eye once daily 2 ??? rosuvastatin (CRESTOR) 10 MG tablet TAKE 1 TABLET BY MOUTH EVERYDAY AT BEDTIME 90 tablet 2 ??? SITagliptin (JANUVIA) 100 MG tablet Take 100 mg by mouth once daily ??? spironolactone (ALDACTONE) 25 MG tablet Take 25 mg by mouth once daily ??? trospium (SANCTURA) 20 MG tablet Take 20 mg by mouth 2 times daily ??? verapamil SR 24hr (VERELAN) 120 MG capsule Take 120 mg by mouth at bedtime ??? vitamin D3 (CHOLECALCIFEROL) 25 MCG (1000 UNITS) tablet Take 1,000 Units by mouth once daily ??? Wheat Dextrin (BENEFIBER PO) Take 1 packet by mouth once daily Medications ??? 0.9% NaCl 3 mL Intracatheter q8h ??? enoxaparin 40 mg Subcutaneous q24h ??? insulin aspart 0-6 Units Subcutaneous q4h ??? pantoprazole 40 mg Intravenous QDAY ??? piperacillin-tazobactam 3.375 g Intravenous q8h ??? potassium phosphate 30 mmol Intravenous Once lactated ringers, , Last Rate: 75 mL/hr at 05/19/22 1206 ??? SALINE LOCK, INSERT AND MAINTAIN AND 0.9% NaCl AND 0.9% NaCl ??? dextrose IV for hypoglycemia OR dextrose IV for hypoglycemia ??? glucagon ??? glucose (Diabetic Use) ??? glucose (Diabetic Use) gel ??? glucose chew tab ROS: Positive findings in bold, not able due to patient mental status - General: fevers, chills, fatigue, weight changes, appetite changes. - HEENT: acute visual changes, hearing loss, sore throat, rhinorrhea. - Cardiac: chest pain, palpitations, CHARLES, edema. - Respiratory: SOB, cough - GI: nausea, vomiting, abdominal pain, changes in BM, hematochezia, melena. - : dysuria, hematuria. - Musculoskeletal: pain. - Skin: rashes. - Neuro: headaches, numbness, tingling, weakness, tremors, convulsions. - Hematologic: easy bruising/bleeding - Psych: recent depression, anxiety, suicidal ideation. Temp: [98.1 ??F (36.7 ??C)] 98.1 ??F (36.7 ??C) Pulse: [98-101] 100 Resp: [13-22] 22 BP: (121-130)/(51-58) 121/51 Intake/Output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 Crestor ??? Familial spastic paraplegia ([facility]) 05/19/1979 Priority: Not Prioritized ??? Chronic diastolic CHF (congestive heart failure) ([facility]) 05/01/2021 Encounter Details Date Type Department Care Team Description 07/31/2020 Office Visit [facility]?? [address]?? [address]?? [place] [address]?? [phone]?? Laz Valencia MD? Type 2 diabetes mellitus with mild nonproliferative diabetic retinopathy with macular edema, right eye ([facility]) 05/01/2021 Eye Exam - Document on 07/31/2020 ??2:49 PM by Raghu Hampton ? Urinary tract infection associated with indwelling urethral catheter ([facility]) 07/20/201903/2019 schmitt catheter placed for incomplete emptying and overflow incontinence 04/[address] with cystitis 06/2019 proteus ??? HSP (hereditary spastic paraplegia) ([facility]) 01/06/2012 ??? Asthma 01/07/2011 ??? HTN (hypertension) 01/07/2011 ??? Sleep apnea 01/07/2011 ??? Type 2 diabetes mellitus without complication ([facility]) 01/07/2011 Past Medical History: Diagnosis Date ??? Asthma 2012 ??? Atrial fibrillation 2016 ??? Breast cancer 08/25/2017 left ??? Broken [...] of TIA (transient ischemic attack) 10/22/2017 ??? 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 HTN (hypertension) ??? Hyperparathyroidism 06/26/2018 ??? 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 IBS (irritable bowel syndrome) ??? Iron deficiency anemia due to chronic blood loss 12/12/2017 ??? Left ventricular hypertrophy 06/26/2018 ??? Lymphatic edema ??? 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 ER pos 97% (strong), ID pos 23% (moderate), Her-2 neg (1+ on [...] Type 2 diabetes mellitus without complication 01/07/2011 Past Surgical History: Procedure Laterality Date ??? [...] AND LT ARM ??? THYROID NEEDLE BIOPSY Medications Prior to Admission Medication Sig Dispense Refill ??? ALPRAZolam (XANAX) 0.25 MG tablet Take 0.25 mg by mouth 2 times daily as needed for Anxiety ??? amitriptyline (ELAVIL) 25 MG tablet Take 2 (two) tablets by mouth at bedtime 180 tablet 3 ??? 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 BD PEN NEEDLE HAYDEN U/F 32G X 4 MM MISC USE TO INJECT INSULIN ONCE DAILY ??? canagliflozin (INVOKANA) 100 MG tablet Take 100 mg by mouth daily before breakfast ??? Cranberry-Vitamin C (AZO CRANBERRY URINARY TRACT) 250-60 MG Take 2 tablets by mouth once daily ??? [employer] SENNA 8.6 MG tablet Take 1 tablet by mouth 2 times daily ??? Cyanocobalamin (B-12) 1000 MCG TBCR Take by mouth once daily. ??? denosumab (PROLIA) 60 MG/ML SC injection Inject 60 mg subcutaneously Every 180 days ??? docusate sodium (COLACE) 100 MG capsule Take 100 mg by mouth once daily ??? dorzolamide (TRUSOPT) 2 % ophthalmic solution Instill 1 drop into both eyes 2 times daily ??? esomeprazole (NEXIUM) 40 MG capsule TAKE 1 CAPSULE DAILY 90 capsule 3 ??? flecainide (TAMBOCOR) 50 MG tablet Take 50 mg by mouth once daily ??? FREESTYLE LITE STRIPS test strip TEST BLOOD SUGARS THREE TIMES A DAY ??? furosemide (LASIX) 40 MG tablet Take 1 (one) tablet by mouth once daily 90 tablet 2 ??? glimepiride (AMARYL) 1 MG tablet Take 1 mg by mouth 3 times daily 2 tabs in the AM, 2 tabs at noon and 1 tab at bedtime ??? insulin glargine (LANTUS) pen Inject 10 Units subcutaneously once daily ??? levothyroxine (SYNTHROID) 75 MCG tablet Take 1 (one) tablet by mouth once daily 90 tablet 4 ??? linaCLOtide (LINZESS) 290 MCG capsule Take 290 mcg by mouth daily before breakfast Take on an empty stomach at least 30 minutes prior to first meal of the day. ??? metOLazone (ZAROXOLYN) 2.5 MG tablet Take 2.5 mg by mouth Take 1 tab twice a week on Friday and ??? multivitamin with iron (ONE A DAY WITH IRON) tablet Take 1 Tab by mouth once daily. ??? Other pneumatic compression pump twice a day on her legs for lymphedema. Setting are between 40to 50 mmgh DX lymphedema 1 Each 0 ??? Other Order to admit to [facility] for [facility] care 1 Each 0 ??? polyethylene glycol 3350 (MIRALAX) 17 GM/SCOOP powder TAKE 1-2 CAPFULS OF MIRALAX DAILY IN THE EVENING FOR ADDITIONAL CONSTIPATION MANAGEMENT. ??? potassium chloride ER (KLOR-CON) 20 MEQ tablet TAKE 1 TABLET BY MOUTH FOUR TIMES A DAY 360 tablet 2 ??? PROLENSA 0.07 % opthalmic solution Instill 1 drop into right eye once daily 2 ??? rosuvastatin (CRESTOR) 10 MG tablet TAKE 1 TABLET BY MOUTH EVERYDAY AT BEDTIME 90 tablet 2 ??? SITagliptin (JANUVIA) 100 MG tablet Take 100 mg by mouth once daily ??? spironolactone (ALDACTONE) 25 MG tablet Take 25 mg by mouth once daily ??? trospium (SANCTURA) 20 MG tablet Take 20 mg by mouth 2 times daily ??? verapamil SR 24hr (VERELAN) 120 MG capsule Take 120 mg by mouth at bedtime ??? vitamin D3 (CHOLECALCIFEROL) 25 MCG (1000 UNITS) tablet Take 1,000 Units by mouth once daily ??? Wheat Dextrin (BENEFIBER PO) Take 1 packet by mouth once daily Allergies Allergen Reactions ??? Advair Diskus YEAS INFECTION ??? Aricept [Donepezil] Other I dont remember ??? Diltiazem Swelling Patient takes verapamil as home med -2020 ??? Metformin Diarrhea ??? Black Pepper [Piper Longum] Unknown ??? Fluticasone Diarrhea ??? Salmeterol Diarrhea ??? Sotalol Other Hair loss Family History: Family History Problem Relation Name Age of Onset ??? Cancer - Breast Mother ??? CAD (Coronary Artery Disease) Father CHF ??? CAD (Coronary Artery Disease) Brother CHF Social History: Social History Socioeconomic History ??? Marital status: ??? Number of children: 3 Occupational History ??? 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 Smoking status: Never ??? Smokeless tobacco: Never Vaping Use ??? Vaping Use: Never used Substance and Sexual Activity ??? Alcohol use: No Alcohol/week: 0.0 standard drinks ??? Drug use: No ??? Sexual activity: Not Currently Other Topics Concern ??? Service No ??? Blood Transfusions No ??? Sleep Concern No Comment: fair ??? Special Diet No Comment: average ??? Exercise Yes Comment: limited mobility ??? Seat Belt No Comment: wears Vital Signs: BP 133/56 Pulse 92 Temp 97.6 ??F (36.4 ??C) (Axillary) Resp 16 Wt 82.5 kg (181 lb 14.1 oz) SpO2 95% Physical Exam: General: NAD, pleasant Head/Neck: Normocephalic ENT: EOMI CV: Regular rate, regular rhythm Lungs: No increased respiratory effort Abdomen: Soft, non peritonitic, distended Genitourinary: Previous SP tract not completely healed, no evidence of purulent drainage. Schmitt draining clear yellow urine Extremities: No edema Neuro: Awake, alert Labs: Recent Labs Component Name 05/20/22 0336 05/19/22 1201 01/18/21 1058 WBC 20.8* 31.8* 11.5* HGB 11.7* 13.7 11.5* HCT 35.7 40.7 39.5 MCV 84.0 82.1 74.0* Recent Labs Component Name 05/20/22 1344 05/20/22 0336 05/19/22 2025 05/19/22 1201 10/12/20 1209 10/04/20 0417 NA 151* 148* 146* 142 - - CL 122* 114* 112* 110* - - CO2 24 26 25 22 - 21* BUN 18 24 30* 39* - 13 CREATININE 0.53* 0.58 0.62 0.66 - 0.91 CALCIUM 9.3 9.8 10.2 10.5* - 9.8 MAGNESIUM 1.9 - 1.9 - - 2.3 PHOS 1.3* - 3.4 2.0* - - - = values in this interval not displayed. Recent Labs Component Name 05/20/22 0336 05/19/22 1201 12/08/20 0000 PROT 4.9* 5.8* - ALB 2.4* 2.8* - TBILI 0.3 0.3 - AST 12 14 19 ALT 12 14 21 ALKPHOS 65 84 83 LIPASE - 7* - Recent Labs Component Name 05/20/22 0948 05/19/22 1201 10/04/20 0417 10/03/20 0402 09/29/20 0451 09/28/20 0155 INR 1.8 1.7 - - - 1.1 PTT 25.7 - 30.9 33.1 - 101.4* - = values in this interval not displayed. No results for input(s): PHART, PO2ART, EHF1ELJ, BEART in the last 04250 hours. Lab results smartLinks are not currently available Micro: Recent Results (from the past 72 hour(s)) C DIFFICILE GDH AG + TOXIN A+B Collection Time: 05/19/22 5:04 PM Specimen: Feces; Stool Result Value Ref Range C difficile GDH antigen & toxin A/B NEGATIVE NEGATIVE Pathology: none Imaging: XR 05/20/2022 gastric tube courses below the diaphragm with tip and side-port projecting over the expected location of the stomach. ?? Large stool burden is noted in the colon. ?? Assessment: Loc Anderson is a 81 year old female with hx of HTN, DM, afib, hereditary spastic paraplegia, MS, NGB with chronic schmitt who had recent SPT placement by Dr Ray s/p accidental removal. She is nowmanaged with indwelling urethral schmitt. UA concerning for infection and she is being treated with zosyn. Plan: -No acute urologic intervention. Would not place SP tube urgently in this setting as she has bladder decompression with urethral schmitt and she has active infection. -Continue appt for outpatient SP tube placement with Dr Ray -Abx per primary. Follow UCx. I have seen and discussed this patient with Dr. Zamora. Ian Gan MD Urology Resident 05/20/2022 3:22 PM [facility] * Emma Berger MD - 05/20/2022 12:18 PM CSTAssociated Order(s): IP CONSULT TO GASTROENTEROLOGY GASTROENTEROLOGY CONSULT Loc Anderson Age: [age] year old Date of : 1940 Date of Admission: 05/19/2022 Reason for Consult: Constipation Requesting Team: MICU 3 Subjective: History of Present Illness: Loc Anderson is a 81 year old female with a history of HTN, DM II, Afib, DVT/PE on Apixaban, hereditary spastic paraplegia, MS, neurogenic bladder with chronic schmitt catheter, cognitive impairement (baseline AOx2-3), chronic constipation who presented from nursing facility to hospital on 05/19/22 for AMS and low grade fever, found to have UTI and concern for abdominal distension for which ACS and GI were consulted. Patient was admitted 05/19/2022??with altered mental status and low grade fever. According to family at bedside, patient was noted to be more confused??and was febrile to 101F at the care home. She was taken to OSH ([facility]) and abdomen noted to be severely distended and tender. Labs showed WBC 31.1, HB 15.2, PLT 419, BUN/CR. 47/0.9 Ca 11.2, normal LFTs. UA showed >75 WBCs, RBCs 11-[address] es terase 2+. CT abdomen was obtained and was suspicious for??gastric outlet obstruction, associated with worsening chronic large bowel dilatation. NG tube was placed OSH, patient was started on Zosyn and was transferred to[facility]. On interview today, the patient reported having had no nausea or vomiting, no abdominal pain. She has had long standing history of constipation for which she has been on Miralax, Benefiber, and Linzess at her nursing facility. She has required manual disimpaction during an admission in 2020 at an OSH (flex sig was done for decompression). 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, estrogen receptor positive (CMS/HCC) Mixed hyperlipidemia History of TIA (transient ischemic attack) Osteopenia of multiple sites Iron deficiency anemia due to chronic blood loss Chronic idiopathic constipation Calcification of aorta (CMS/HCC) Primary hypothyroidism Familial spastic paraplegia (CMS/HCC) Heart murmur CATY (obstructive sleep apnea) CAD (coronary artery disease) Lymphatic edema Partial seizure (CMS/HCC) OAB (overactive bladder) Left ventricular hypertrophy Hyperparathyroidism (CMS/HCC) Recurrent UTI Atrial fibrillation (CMS/HCC) Change in bowel habits Left hip pain Ambulatory dysfunction Acute congestive heart failure (CMS/HCC) Elevated troponin Lymphedema of both lower extremities Pure hypercholesterolemia Wheelchair bound Chronic diastolic CHF (congestive heart failure) (CMS/HCC) Type 2 diabetes mellitus with mild nonproliferative diabetic retinopathy with macular edema, right eye (CMS/HCC) Gastric outlet obstruction Encephalopathy Chronic indwelling Schmitt catheter Past Medical History: Diagnosis Date ??? Asthma [...] of TIA (transient ischemic attack) 10/22/2017 ??? 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 HTN (hypertension) ??? Hyperparathyroidism 06/26/2018 ??? 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 IBS (irritable bowel syndrome) ??? Iron deficiency anemia due to chronic blood loss 12/12/2017 ??? Left ventricular hypertrophy 06/26/2018 ??? Lymphatic edema ??? 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 ER pos 97% (strong), ID pos 23% (moderate), Her-2 neg (1+ on [...] Type 2 diabetes mellitus without complication 01/07/2011 Past Surgical History: Past Surgical History: Procedure Laterality Date ??? [...] AND LT ARM ??? THYROID NEEDLE BIOPSY Medications: Medications Prior to Admission Medication Sig Dispense Refill ??? ALPRAZolam (XANAX) 0.25 MG tablet Take 0.25 mg by mouth 2 times daily as needed for Anxiety ??? amitriptyline (ELAVIL) 25 MG tablet Take 2 (two) tablets by mouth at bedtime 180 tablet 3 ??? 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 BD PEN NEEDLE HAYDEN U/F 32G X 4 MM MISC USE TO INJECT INSULIN ONCE DAILY ??? canagliflozin (INVOKANA) 100 MG tablet Take 100 mg by mouth daily before breakfast ??? Cranberry-Vitamin C (AZO CRANBERRY URINARY TRACT) 250-60 MG Take 2 tablets by mouth once daily ??? [employer]S SENNA 8.6 MG tablet Take 1 tablet by mouth 2 times daily ??? Cyanocobalamin (B-12) 1000 MCG TBCR Take by mouth once daily. ??? denosumab (PROLIA) 60 MG/ML SC injection Inject 60 mg subcutaneously Every 180 days ??? docusate sodium (COLACE) 100 MG capsule Take 100 mg by mouth once daily ??? dorzolamide (TRUSOPT) 2 % ophthalmic solution Instill 1 drop into both eyes 2 times daily ??? esomeprazole (NEXIUM) 40 MG capsule TAKE 1 CAPSULE DAILY 90 capsule 3 ??? flecainide (TAMBOCOR) 50 MG tablet Take 50 mg by mouth once daily ??? FREESTYLE LITE STRIPS test strip TEST BLOOD SUGARS THREE TIMES A DAY ??? furosemide (LASIX) 40 MG tablet Take 1 (one) tablet by mouth once daily 90 tablet 2 ??? glimepiride (AMARYL) 1 MG tablet Take 1 mg by mouth 3 times daily 2 tabs in the AM, 2 tabs at noon and 1 tab at bedtime ??? insulin glargine (LANTUS) pen Inject 10 Units subcutaneously once daily ??? levothyroxine (SYNTHROID) 75 MCG tablet Take 1 (one) tablet by mouth once daily 90 tablet 4 ??? linaCLOtide (LINZESS) 290 MCG capsule Take 290 mcg by mouth daily before breakfast Take on an empty stomach at least 30 minutes prior to first meal of the day. ??? metOLazone (ZAROXOLYN) 2.5 MG tablet Take 2.5 mg by mouth Take 1 tab twice a week on Friday and ??? multivitamin with iron (ONE A DAY WITH IRON) tablet Take 1 Tab by mouth once daily. ??? Other pneumatic compression pump twice a day on her legs for lymphedema. Setting are between 40to 50 mmgh DX lymphedema 1 Each 0 ??? 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 polyethylene glycol 3350 (MIRALAX) 17 GM/SCOOP powder TAKE 1-2 CAPFULS OF MIRALAX DAILY IN THE EVENING FOR ADDITIONAL CONSTIPATION MANAGEMENT. ??? potassium chloride ER (KLOR-CON) 20 MEQ tablet TAKE 1 TABLET BY MOUTH FOUR TIMES A DAY 360 tablet 2 ??? PROLENSA 0.07 % opthalmic solution Instill 1 drop into right eye once daily 2 ??? rosuvastatin (CRESTOR) 10 MG tablet TAKE 1 TABLET BY MOUTH EVERYDAY AT BEDTIME 90 tablet 2 ??? SITagliptin (JANUVIA) 100 MG tablet Take 100 mg by mouth once daily ??? spironolactone (ALDACTONE) 25 MG tablet Take 25 mg by mouth once daily ??? trospium (SANCTURA) 20 MG tablet Take 20 mg by mouth 2 times daily ??? verapamil SR 24hr (VERELAN) 120 MG capsule Take 120 mg by mouth at bedtime ??? vitamin D3 (CHOLECALCIFEROL) 25 MCG (1000 UNITS) tablet Take 1,000 Units by mouth once daily ??? Wheat Dextrin (BENEFIBER PO) Take 1 packet by mouth once daily Current Facility-Administered Medications Medication ??? 0.9% NaCl injection 3 mL And ??? 0.9% NaCl injection 1-10 mL ??? dextrose 10 % IV bolus Or ??? dextrose 10 % IV bolus ??? dextrose 5 % and 0.45% NaCl infusion ??? glucagon (Glucagen) injection 1 mg ??? glucose (Diabetic Use) (Dex4 Glucose) oral liquid ??? glucose (Diabetic Use) oral gel ??? glucose chew tablet 4 tablet ??? heparin 25,000 units in 250 mL (100 units/mL) in 0.45% NaCl ??? insulin lispro (HumaLOG;ADMelog) 100 UNIT/ML pen 0-6 Units ??? pantoprazole (Protonix) injection 40 mg ??? piperacillin - tazobactam (Zosyn) 3.375 g in 0.9% NaCl IV 55 mL IVPB ??? potassium chloride 40 mEq in 270 mL bolus ??? ridcp-sgc-xntendgj (HOG) enema 360 mL Allergies: Allergies Allergen Reactions ??? Advair Diskus YEAS INFECTION ??? Aricept [Donepezil] Other I dont remember ??? Diltiazem Swelling Patient takes verapamil as home med -2020 ??? Metformin Diarrhea ??? Black Pepper [Piper Longum] Unknown ??? Fluticasone Diarrhea ??? Salmeterol Diarrhea ??? Sotalol Other Hair loss Social History: Social History Tobacco Use ??? Smoking status: Never ??? Smokeless tobacco: Never Substance Use Topics ??? Alcohol use: No Alcohol/week: 0.0 standard drinks Family History: family history includes CAD (Coronary Artery Disease) in her brother and father; Cancer - Breast inher mother. Review of Systems: General: +fevers, low appetite HEENT: no acute changes in vision or hearing Respiratory: no shortness of breath, cough, sputum production, hemoptysis Cardiovascular: no chest pain, palpitations, orthopnea Gastrointestinal: as per HPI Genitourinary: no dysuria, hematuria MSK: no extremity edema, myalgia. Neuro: +AMS recently Skin: no new skin rashes or lesions. Objective: Physical Exam: BP 139/66 Pulse 93 Temp 97.1 ??F (36.2 ??C) (Axillary) Resp (!) 5 Wt 82.5 kg (181 lb 14.1 oz) SpO2 96% Wt Readings from Last 5 Encounters: 05/20/22 82.5 kg (181 lb 14.1 oz) 03/06/21 68 kg (150 lb) 02/19/21 76.2 kg (168 lb) 01/18/21 76.3 kg (168 lb 3.2 oz) 12/08/20 76.6 kg (168 lb 12.8 oz) General: pleasant, in no distress HEENT: conjunctivae/corneas clear. Moist mucous membranes. Neck: supple Lungs: clear to auscultation bilaterally, no wheezes Heart: Normal rate and regular rhythm, no appreciable murmurs Abdomen: soft, non-tender, distended abdomen, bowel sounds hypoactive, no palpable masses Rectal: deferred Extremities: no edema Neuro: alert and oriented to self only, paraplegia Labs: Recent Labs Component Name 05/20/22 0948 05/20/22 0336 05/19/22 1201 01/18/21 1058 01/05/21 1450 12/08/20 0000 09/28/20 1024 09/28/20 0155 09/27/20 0115 12/29/16 0121 12/28/16 1814 WBC - 20.8* 31.8* 11.5* 9.4 13.7* - 13.9* 17.2* - 7.6 HGB - 11.7* 13.7 11.5* 11.2* 10.6* - 12.7 12.5 - 11.5* MCV - 84.0 82.1 74.0* 76.6* 80 - 78.4* 78.5* - 76.8* INR 1.8 - 1.7 - - - - 1.1 1.1 - 1.0 - = values in this interval not displayed. Recent Labs Component Name 05/20/22 0336 05/19/22202405/19/22 1201 NA 148* 146* 142 CL 114* 112* 110* CO2 26 25 22 BUN 24 30* 39* CREATININE 0.58 0.62 0.66 Recent Labs Component Name 05/20/22 0336 05/19/22 1201 12/08/20 0000 AST 12 14 19 ALT 12 14 21 ALKPHOS 65 84 83 TBILI 0.3 0.3 - ALB 2.4* 2.8* - Imaging: XR ABDOMEN KUB PORTABLE Result Date: 05/19/2022 IMPRESSION: Moderate gaseous distention throughout the colon with folding of the colon in the mid abdomen/left upper quadrant. Findings can be seen in the setting of early cecal volvulus. If clinicalsuspicion for acute abdomen is present, recommend CT abdomen pelvis with contrast. Alternatively, this can be seen in the setting of ileus and/or obstruction. Report dictated by Gareth Peraza MD (radiology administrator) I, AGUILAR MEDINA MD have personally reviewed and interpreted this examination/study. > Interpreting Provider: AGUILAR MEDINA MD on 05/19/2022 3:02 PM Procedures: EGD 12/22/20: Done for LETA, erythematous antrum, biopsied, multiple benign gastric polyps, normal duodenum. Colonoscopy 12/27/20: Large fecal impaction in the rectum and sigmoid colon, few erosions in rectum,manually disimpacted. Assessment: Loc Anderson is a 81 year old female with a history of HTN, DM II, Afib, DVT/PE on Apixaban, hereditary spastic paraplegia, MS, neurogenic bladder with chronic schmitt catheter, cognitive impairement (baseline AOx2-3), chronic constipation who presented from nursing facility to hospital on 05/19/22 for AMS and low grade fever, found to have UTI and concern for abdominal distension for which ACS and GI were consulted. ?? Hx of chronic constipation: Previously requiring manual disimpaction. Chronically on Linzess, miralax, milk of magnesia, dulcolax suppositories per chart review. Currently with rectal tube in place with brownish stools (~450 mL/24 hours, given enemas though). ?? Likely ileus, initial concern for gastric outlet obstruction on OSH CT A/P: Patient being followed by ACS as well. Currently with NGT in place and rectal tube for decompression. Started on HOG enemas Q6HR. Remains NPO currently. Lower concern for true GOO, this is likely related to diffuse slowing in motility and ileus. ?? Concern for acute on chronic toxic/metabolic encephalopathy: Possibly in relation to UTI, being treated for that. Constipation may be contributing as well in addition to electrolyte abnormalities. ?? Severe hypokalemia: K noted to be as low as 2.1 today. Mg 1.9. ?? Other co-morbidities: HTN, DM II, Afib, DVT/PE on Apixaban. Recommendations: ?? Agree with serial abdominal examination and KUBs. ?? Aggressive monitoring and repletion of K to goal 4.4, Mg to 2.2. ?? Treat underlying hypercalcemia as you are doing, this is also contributing to constipation. ?? Reasonable to attempt to clamp NGT and advance diet to CLD today. ?? If tolerating CLD, consider starting Miralax BID today. Continue current enemas. ?? We will assess patient's response to this, in addition to serial KUBs and determine if it is ok to restart Linzess in the next 24-48 hours as well. Patient and above recommendations were discussed with GI attending, Dr. Jackson, as well as the primary team. Thank you for allowing us to participate in the care of this patient. We will continue to follow this patient with you. Please do not hesitate to contact us with further questions. Emma Berger MD PGY-4, Gastroenterology & Hepatology Fellow [facility] Associated attestation - Joshua Jackson MD - 05/20/2022 5:01 PM [facility] GI & Hepatology Attending Note I have personally seen and examined this patient with the trainee on 05/20/2022. I agree with the assessment and plan detailed in this note with the following additions: Okay to give laxatives from above. Agree with optimizing electrolytes. JOSHUA JACKSON MD 05/20/2022 4:59 PM * Nancy Philip MD - 05/19/2022 3:39 PM CST Images from the original note were not included. Acute Care Surgery Consult History and Physical Patient Name: Loc Anderson Age/Gender: 81 year old female : 1940 Date: 05/19/2022 Reason for Consult: GOO HPI: Loc Anderson is a 81 year old female with a PMHx of HTN, T2DM, Afib, DVT/PE (on eliquis), hereditary spastic paraplegia, MS, neurogenic bladder (chronic schmitt catheter), breast cancer, cognitive impairment (baseline AOx2-3) [facility] resident admitted 05/19/2022 with altered mental status and low grade fever. According to family at bedside, patient was noted to be more confused and was febrile at the care home. She was taken to OSH ([place]) and due to her abdominal distension a CT abdomen wasobtained and was suspicious for gastric outlet obstruction, associated with worsening chronic largebowel dilatation. NG tube was placed OSH, patient was started on Zosyn and was [facility] to [facility]. She is currently passing flatus and having BMs. NGT with light gastric output. Past Medical History: Diagnosis Date ??? Asthma [...] of TIA (transient ischemic attack) 10/22/2017 ??? 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 HTN (hypertension) ??? Hyperparathyroidism 06/26/2018 ??? 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 IBS (irritable bowel syndrome) ??? Iron deficiency anemia due to chronic blood loss 12/12/2017 ??? Left ventricular hypertrophy 06/26/2018 ??? Lymphatic edema ??? 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 ER pos 97% (strong), ID pos 23% (moderate), Her-2 neg (1+ on IHC), Ki-67 19% S/p 08/25/2017 excisional biopsy ([place]); spastic paraplegia: 1.1 cm grade 2/3 IDC. No LVI. Margin neg S/p 09/08/2017 sentinel node biopsy ([place]): 2 neg nodes Med onc:Dr. Gonzalez: adjuvant [...] Type 2 diabetes mellitus without complication 01/07/2011 Past Surgical History: Procedure Laterality Date ??? [...] LT ARM ??? THYROID NEEDLE BIOPSY Allergies Allergen Reactions ??? Advair Diskus YEAS INFECTION ??? Aricept [Donepezil] Other I dont remember ??? Diltiazem Swelling Patient takes verapamil as home med ??? Metformin Diarrhea ??? Black Pepper [[place]] Unknown ??? Fluticasone Diarrhea ??? Salmeterol Diarrhea ??? Sotalol Other Hair loss Outpatient Medications: ??? ALPRAZolam (XANAX) 0.25 MG tablet ??? amitriptyline (ELAVIL) 25 MG tablet ??? anastrozole (ARIMIDEX) 1 MG tablet ??? BD PEN NEEDLE HAYDEN U/F 32G X 4 MM MISC ??? canagliflozin (INVOKANA) 100 MG tablet ??? Cranberry-Vitamin C (AZO CRANBERRY URINARY TRACT) 250-60 MG ??? CVS SENNA 8.6 MG tablet ??? Cyanocobalamin (B-12) 1000 MCG TBCR ??? denosumab (PROLIA) 60 MG/ML SC injection ??? docusate sodium (COLACE) 100 MG capsule ??? dorzolamide (TRUSOPT) 2 % ophthalmic solution ??? esomeprazole (NEXIUM) 40 MG capsule ??? flecainide (TAMBOCOR) 50 MG tablet ??? FREESTYLE LITE STRIPS test strip ??? furosemide (LASIX) 40 MG tablet ??? glimepiride (AMARYL) 1 MG tablet ??? insulin glargine (LANTUS) pen ??? levothyroxine (SYNTHROID) 75 MCG tablet ??? linaCLOtide (LINZESS) 290 MCG capsule ??? metOLazone (ZAROXOLYN) 2.5 MG tablet ??? multivitamin with iron (ONE A DAY WITH IRON) tablet ??? Other ??? Other ??? polyethylene glycol 3350 (MIRALAX) 17 GM/SCOOP powder ??? potassium chloride ER (KLOR-CON) 20 MEQ tablet ??? PROLENSA 0.07 % opthalmic solution ??? rosuvastatin (CRESTOR) 10 MG tablet ??? SITagliptin (JANUVIA) 100 MG tablet ??? spironolactone (ALDACTONE) 25 MG tablet ??? trospium (SANCTURA) 20 MG tablet ??? verapamil SR 24hr (VERELAN) 120 MG capsule ??? vitamin D3 (CHOLECALCIFEROL) 25 MCG (1000 UNITS) tablet ??? Wheat Dextrin (BENEFIBER PO) Inpatient Medications: Current Facility-Administered Medications Medication ??? 0.9% NaCl injection 3 mL And ??? 0.9% NaCl injection 1-10 mL ??? dextrose 10 % IV bolus Or ??? dextrose 10 % IV bolus ??? enoxaparin (Lovenox) injection 40 mg ??? glucagon (Glucagen) injection 1 mg ??? glucose (Diabetic Use) (Dex4 Glucose) oral liquid ??? glucose (Diabetic Use) oral gel ??? glucose chew tablet 4 tablet ??? insulin lispro (HumaLOG;ADMelog) 100 UNIT/ML pen 0-6 Units ??? lactated ringers infusion ??? pantoprazole (Protonix) injection 40 mg ??? piperacillin - tazobactam (Zosyn) 3.375 g in 0.9% NaCl IV 55 mL IVPB ??? potassium phosphate 30 mmol in d5w 260 mL bolus premix Social History Tobacco Use ??? Smoking status: Never ??? Smokeless tobacco: Never Vaping Use ??? Vaping Use: Never used Substance Use Topics ??? Alcohol use: No Alcohol/week: 0.0 standard drinks ??? Drug use: No Family History Problem Relation Name Age of Onset ??? Cancer - Breast Mother ??? CAD (Coronary Artery Disease) Father CHF ??? 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 as calculated from the following: Height as of 03/06/21: 1.651 m (5' 5 ). Weight as of 03/06/21: 68 kg (150 lb). Gen: NAD HEENT: AT/NC, EOMI, NGT in place with gastric output in canister and tubing CV: no audible murmurs Pulm: Nonlabored respirations on RA Abd: Soft, distended, no abdominal tenderness with deep palpation, no peritonitis MSK: WWP, no c/c/e Neuro: Moving all extremities, no focal deficits Psych: Appropriate mood and affect Recent Labs: CBC: Recent Labs Component Name 05/19/22 1201 WBC 31.8* HGB 13.7 HCT 40.7 BMP: Recent Labs Component Name 05/19/22 1201 NA 142 CL 110* CO2 22 BUN 39* CREATININE 0.66 Recent Labs Component Name 05/19/22 1201 10/04/20 0417 PT 19.9* - PTT - 30.9 INR 1.7 - Imaging: OSH CT scan reviewed. Diffusely dilated bowel extending up to stomach. No mass or obvious obstruction. Significant stool burden in colon. Assessment and Plan: Loc Anderson is a 81 year old female with a PMHx of HTN, T2DM, Afib, DVT/PE (on eliquis), hereditary spastic paraplegia, MS, neurogenic bladder (chronic schmitt catheter), breast cancer, cognitive impairment (baseline AOx2-3) [place] resident admitted 05/19/2022 with altered mental status and low grade fever. CT scan at OSH suspicious for GOO, with dilated colon and significant stool burden. WBC 31.8. - Recommend checking C. Difficile - Recommend GI consult for management of constipation, dilated colon. Patient having bowel function, low suspicion for mechanical obstruction. - will continue to follow, serial abdominal exams - Remainder of care per primary team Staff: Dr. Karlos Philip MD PGY 5 General Surgery 05/19/2022 3:39 PM [facility] Associated attestation - Raghu Everett MD - 05/20/2022 4:57 PM [facility] I have seen and examined the patient with the resident and I agree with the findings and plan of care as documented by the resident. Date of Service: 05/19/2022 Pt seen and examined CT scan reviewed above consult note completed during discussion with family. Pt with remarkable dilatation of entire bowel from stomach to anus. Only narrow area is 3-4 th portion duodenum when it passes between the aorta and SMA. This is not SMA syndrome either. I do not see any surgical lesion for repair Raghu Everett MD documented in this encounter Plan of Treatment Not on file documented as of this encounter Goals Goal Patient Goal Type Associated Problems Recent Progress Patient-Stated? 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 8:09 AM [facility]) No Alisa Jaramillo HEMOGLOBIN A1C < 7.0 Result Component 5.4( 12:00 AM CDT) No Alisa Jaramillo documented as of this encounter Procedures Procedure Name Priority Date/Time Associated Diagnosis Comments CARDIAC EKG ORDER 06/06/2022 7:3 9 AM [facility] GLUCOSE - POINT OF CARE Routine 05/30/2022 8:09 AM [facility] GLUCOSE - POINT OF CARE Routine 05/30/2022 4:17 AM [facility] GLUCOSE - POINT OF CARE Routine 05/29/2022 11:55 PM [facility] GLUCOSE - POINT OF CARE Routine 05/29/2022 7:22 PM [facility] GLUCOSE - POINT OF CARE Routine 05/29/2022 4:24 PM [facility] SARS-COV-2 (COVID-19) RAPID Routine 05/29/2022 3:56 PM [facility] GLUCOSE - POINT OF CARE Routine 05/29/2022 12:10 PM [facility] GLUCOSE - POINT OF CARE Routine 05/29/2022 8:24 AM [facility] BASIC METABOLIC PANEL (CALCIUM TOTAL) AM Draw 05/29/2022 4:58 AM [facility] PHOSPHORUS BLOOD AM Draw 05/29/2022 4:58 AM [facility] MAGNESIUM BLOOD AM Draw 05/29/2022 4:58 AM [facility] GLUCOSE - POINT OF CARE Routine 05/29/2022 3:37 AM [facility] GLUCOSE - POINT OF CARE Routine 05/28/2022 11:44 PM [facility] GLUCOSE - POINT OF CARE Routine 05/28/2022 7:57 PM [facility] GLUCOSE - POINT OF CARE Routine 05/28/2022 3:44 PM [facility] GLUCOSE - POINT OF CARE Routine 05/28/2022 3:19 PM [facility] GLUCOSE - POINT OF CARE Routine 05/28/2022 11:07 AM [facility] GLUCOSE - POINT OF CARE Routine 05/28/2022 7:22 AM [facility] DIFFERENTIAL MANUAL AM Draw 05/28/2022 6 :30 AM [facility] CBC W AUTO DIFFERENTIAL AM Draw 05/28/2022 6:30 AM [facility] PT-INR [facility] AM Draw 05/28/2022 6:29 AM [facility] BASIC METABOLIC PANEL (CALCIUM TOTAL) Timed 05/28/2022 6:29 AM [facility] PHOSPHORUS BLOOD AM Draw 05/28/2022 6:29 AM [facility] MAGNESIUM BLOOD AM Draw 05/28/2022 6:29 AM [facility] GLUCOSE - POINT OF CARE Routine 05/28/2022 3:50 AM [facility] GLUCOSE - POINT OF CARE Routine 05/27/2022 11:56 PM [facility] BASIC METABOLIC PANEL (CALCIUM TOTAL) Timed 05/27/2022 11:42 PM [facility] GLUCOSE - POINT OF CARE Routine 05/27/2022 8:20 PM [facility] GLUCOSE - POINT OF CARE Routine 05/27/2022 4:52 PM [facility] BASIC METABOLIC PANEL (CALCIUM TOTAL) Timed 05/27/2022 3:26 PM [facility] GLUCOSE - POINT OF CARE Routine 05/27/2022 11:57 AM [facility] PT-INR [facility] AM Draw 05/27/2022 6:39 AM [facility] DIFFERENTIAL MANUAL AM Draw 05/27/2022 6 :39 AM [facility] CBC W AUTO DIFFERENTIAL AM Draw 05/27/2022 6:39 AM [facility] BASIC METABOLIC PANEL (CALCIUM TOTAL) Timed 05/27/2022 6:39 AM [facility] PHOSPHORUS BLOOD AM Draw 05/27/2022 6:39 AM [facility] MAGNESIUM BLOOD AM Draw 05/27/2022 6:39 AM [facility] GLUCOSE - POINT OF CARE Routine 05/27/2022 3:43 AM [facility] BASIC METABOLIC PANEL (CALCIUM TOTAL) Timed 05/27/2022 12:40 AM [facility] GLUCOSE - POINT OF CARE Routine 05/27/2022 12:13 AM [facility] GLUCOSE - POINT OF CARE Routine 05/26/2022 7:50 PM [facility] GLUCOSE - POINT OF CARE Routine 05/26/2022 4:38 PM [facility] BASIC METABOLIC PANEL (CALCIUM TOTAL) Timed 05/26/2022 2:28 PM [facility] GLUCOSE - POINT OF CARE Routine 05/26/2022 11:34 AM [facility] GLUCOSE - POINT OF CARE Routine 05/26/2022 8:03 AM [facility] PT-INR [facility] AM Draw 05/26/2022 6:42 AM [facility] DIFFERENTIAL MANUAL AM Draw 05/26/2022 6 :42 AM [facility] CBC W AUTO DIFFERENTIAL AM Draw 05/26/2022 6:42 AM [facility] BASIC METABOLIC PANEL (CALCIUM TOTAL) Timed 05/26/2022 6:42 AM [facility] PHOSPHORUS BLOOD AM Draw 05/26/2022 6:42 AM [facility] MAGNESIUM BLOOD AM Draw 05/26/2022 6:42 AM [facility] GLUCOSE - POINT OF CARE Routine 05/26/2022 4:10 AM [facility] GLUCOSE - POINT OF CARE Routine 05/25/2022 11:40 PM [facility] BASIC METABOLIC PANEL (CALCIUM TOTAL) Timed 05/25/2022 9:07 PM [facility] GLUCOSE - POINT OF CARE Routine 05/25/2022 7:50 PM [facility] GLUCOSE - POINT OF CARE Routine 05/25/2022 4:26 PM [facility] BASIC METABOLIC PANEL (CALCIUM TOTAL) Timed 05/25/2022 4:09 PM [facility] GLUCOSE - POINT OF CARE Routine 05/25/2022 11:59 AM [facility] GLUCOSE - POINT OF CARE Routine 05/25/2022 8:19 AM [facility] PT-INR [facility] AM Draw 05/25/2022 6:29 AM [facility] DIFFERENTIAL MANUAL AM Draw 05/25/2022 6 :29 AM [facility] CBC W AUTO DIFFERENTIAL AM Draw 05/25/2022 6:29 AM [facility] BASIC METABOLIC PANEL (CALCIUM TOTAL) Timed 05/25/2022 6:29 AM [facility] PHOSPHORUS BLOOD AM Draw 05/25/2022 6:29 AM [facility] MAGNESIUM BLOOD AM Draw 05/25/2022 6:29 AM [facility] GLUCOSE - POINT OF CARE Routine 05/25/2022 12:00 AM [facility] BASIC METABOLIC PANEL (CALCIUM TOTAL) Timed 05/24/2022 11:13 PM [facility] GLUCOSE - POINT OF CARE Routine 05/24/2022 8:48 PM [facility] GLUCOSE - POINT OF CARE Routine 05/24/2022 5:01 PM [facility] BASIC METABOLIC PANEL (CALCIUM TOTAL) Timed 05/24/2022 3:57 PM [facility] GLUCOSE - POINT OF CARE Routine 05/24/2022 12:41 PM [facility] GLUCOSE - POINT OF CARE Routine 05/24/2022 7:34 AM [facility] PT-INR [facility] AM Draw 05/24/2022 6:13 AM [facility] DIFFERENTIAL MANUAL AM Draw 05/24/2022 6 :13 AM [facility] CBC W AUTO DIFFERENTIAL AM Draw 05/24/2022 6:13 AM [facility] BASIC METABOLIC PANEL (CALCIUM TOTAL) Timed 05/24/2022 6:13 AM [facility] PHOSPHORUS BLOOD AM Draw 05/24/2022 6:13 AM [facility] MAGNESIUM BLOOD AM Draw 05/24/2022 6:13 AM [facility] GLUCOSE - POINT OF CARE Routine 05/24/2022 3:46 AM [facility] GLUCOSE - POINT OF CARE Routine 05/24/2022 12:14 AM [facility] BASIC METABOLIC PANEL (CALCIUM TOTAL) Timed 05/23/2022 11:08 PM [facility] GLUCOSE - POINT OF CARE Routine 05/23/2022 9:02 PM [facility] BASIC METABOLIC PANEL (CALCIUM TOTAL) Timed 05/23/2022 5:28 PM [facility] GLUCOSE - POINT OF CARE Routine 05/23/2022 4:24 PM [facility] EKG 12-LEAD Routine 05/23/2022 12:55 PM [facility] Hypokalemia Chronic diastolic CHF (congestive heart failure) (HCC) URINALYSIS REFLEX TO MICROSCOPIC NO CULTURE Routine 05/23/2022 12:33 PM [facility] GLUCOSE - POINT OF CARE Routine 05/23/2022 11:31 AM [facility] GLUCOSE - POINT OF CARE Routine 05/23/2022 8:09 AM [facility] PT-INR [facility] AM Draw 05/23/2022 5:59 AM [facility] DIFFERENTIAL MANUAL Today 05/23/2022 5:59 AM [facility] CBC W AUTO DIFFERENTIAL AM Draw 05/23/2022 5:59 AM [facility] BASIC METABOLIC PANEL (CALCIUM TOTAL) Timed 05/23/2022 5:59 AM [facility] PHOSPHORUS BLOOD AM Draw 05/23/2022 5:59 AM [facility] MAGNESIUM BLOOD AM Draw 05/23/2022 5:59 AM [facility] GLUCOSE - POINT OF CARE Routine 05/23/2022 4:19 AM [facility] GLUCOSE - POINT OF CARE Routine 05/23/2022 12:48 AM [facility] BASIC METABOLIC PANEL (CALCIUM TOTAL) Timed 05/22/2022 11:10 PM [facility] GLUCOSE - POINT OF CARE Routine 05/22/2022 7:56 PM [facility] GLUCOSE - POINT OF CARE Routine 05/22/2022 3:48 PM [facility] GLUCOSE - POINT OF CARE Routine 05/22/2022 12:42 PM [facility] PTT [facility] Routine 05/22/2022 11:59 AM [facility] BASIC METABOLIC PANEL (CALCIUM TOTAL) Timed 05/22/2022 11:59 AM [facility] XR ABDOMEN KUB PORTABLE STAT 05/22/2022 8:04 AM [facility] 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 Chronic indwelling Schmitt catheter GLUCOSE - POINT OF CARE Routine 05/22/2022 7:52 AM [facility] CBC W AUTO DIFFERENTIAL AM Draw 05/22/2022 7:26 AM [facility] BASIC METABOLIC PANEL (CALCIUM TOTAL) Timed 05/22/2022 7:26 AM [facility] PHOSPHORUS BLOOD AM Draw 05/22/2022 7:26 AM [facility] MAGNESIUM BLOOD AM Draw 05/22/2022 7:26 AM [facility] GLUCOSE - POINT OF CARE Routine 05/22/2022 5:08 AM [facility] PTT [facility] AM Draw 05/22/2022 4:56 AM [facility] PT-INR [facility] AM Draw 05/22/2022 4:56 AM [facility] GLUCOSE - POINT OF CARE Routine 05/22/2022 1:17 AM [facility] GLUCOSE - POINT OF CARE Routine 05/21/2022 8:45 PM [facility] PTT [facility] STAT 05/21/2022 7:59 PM [facility] BASIC METABOLIC PANEL (CALCIUM TOTAL) Timed 05/21/2022 7:59 PM [facility] GLUCOSE - POINT OF CARE Routine 05/21/2022 4:33 PM [facility] PT-INR [facility] STAT 05/21/2022 4:21 PM [facility] GLUCOSE - POINT OF CARE Routine 05/21/2022 11:57 AM [facility] GLUCOSE - POINT OF CARE Routine 05/21/2022 8:39 AM [facility] XR ABDOMEN KUB Routine 05/21/2022 7:30 AM [facility] Ileus (HCC) PTT [facility] Timed 05/21/2022 6:23 AM [facility] PT-INR [facility] AM Draw 05/21/2022 6:23 AM [facility] PTH INTACT W/O CALCIUM Timed 6:23 AM [facility] DIFFERENTIAL MANUAL AM Draw 05/21/2022 6 :23 AM [facility] CBC W AUTO DIFFERENTIAL AM Draw 05/21/2022 6:23 AM [facility] BASIC METABOLIC PANEL (CALCIUM TOTAL) Timed 05/21/2022 6:23 AM [facility] PHOSPHORUS BLOOD AM Draw 05/21/2022 6:23 AM [facility] MAGNESIUM BLOOD AM Draw 05/21/2022 6:23 AM [facility] GLUCOSE - POINT OF CARE Routine 05/21/2022 3:33 AM [facility] GLUCOSE - POINT OF CARE Routine 05/21/2022 12:13 AM [facility] SARS-COV-2 (COVID-19) RAPID Routine 05/21/2022 12:07 AM [facility] BASIC METABOLIC PANEL (CALCIUM TOTAL) Timed 05/20/2022 9:50 PM [facility] PTT [facility] Timed 05/20/2022 7:55 PM [facility] GLUCOSE - POINT OF CARE Routine 05/20/2022 7:54 PM [facility] GLUCOSE - POINT OF CARE Routine 05/20/2022 7:52 PM [facility] GLUCOSE - POINT OF CARE Routine 05/20/2022 3:07 PM [facility] TSH REFLEX FREE T4 Routine 05/20/2022 1: 44 PM [facility] BASIC METABOLIC PANEL (CALCIUM TOTAL) Routine 05/20/2022 1:44 PM [facility] PHOSPHORUS BLOOD Routine 05/20/2022 1:44 PM [facility] MAGNESIUM BLOOD Routine 05/20/2022 1:44 PM [facility] CREATININE URINE RANDOM Routine 05/20/2022 12:[address] [facility] [address] HEAD WO CONTRAST STAT 05/20/2022 1 2:12 PM [facility] Encephalopathy GLUCOSE - POINT OF CARE Routine 05/20/2022 11:17 AM [facility] PTT [facility] Timed 05/20/2022 9:48 AM [facility] PT-INR [facility] Routine 05/20/2022 9:48 AM [facility] POTASSIUM URINE RANDOM Routine 7:53 AM [facility] GLUCOSE - POINT OF CARE Routine 05/20/2022 7:46 AM [facility] XR ABDOMEN KUB PORTABLE STAT 05/20/2022 7:04 AM [facility] Change in bowel habits DIFFERENTIAL MANUAL AM Draw 05/20/2022 3 :36 AM [facility] CBC W AUTO DIFFERENTIAL AM Draw 05/20/2022 3:36 AM [facility] COMPREHENSIVE METABOLIC PANEL AM Draw 05/20/2022 3:36 AM [facility] GLUCOSE - POINT OF CARE Routine 05/20/2022 3:35 AM [facility] GLUCOSE - POINT OF CARE Routine 05/20/2022 12:21 AM [facility] BASIC METABOLIC PANEL (CALCIUM TOTAL) Timed 05/19/2022 8:25 PM [facility] PHOSPHORUS BLOOD AM Draw 05/19/2022 8:25 PM [facility] MAGNESIUM BLOOD AM Draw 05/19/2022 8:25 PM [facility] GLUCOSE - POINT OF CARE Routine 05/19/2022 8:24 PM [facility] GLUCOSE - POINT OF CARE Routine 05/19/2022 5:18 PM [facility] C DIFFICILE GDH AG + TOXIN A+B Routine 05/19/2022 5:04 PM [facility] CULTURE URINE Routine 05/19/2022 3:37 PM [facility] PROCALCITONIN LEVEL Routine 05/19/2022 3 :02 PM [facility] XR CHEST 1VW PORTABLE STAT 05/19/2022 1:13 PM [facility] Gastric outlet obstruction (HCC) Encephalopathy XR ABDOMEN KUB PORTABLE STAT 05/19/2022 1:12 PM [facility] Gastric outlet obstruction (HCC) CULTURE BLOOD Timed 05/19/2022 12:36 PM [facility] CULTURE BLOOD Timed 05/19/2022 12:18 PM [facility] URINALYSIS REFLEX TO MICROSCOPIC NO CULTURE Routine 05/19/2022 12:12 PM [facility] GLUCOSE - POINT OF CARE Routine 05/19/2022 12:11 PM [facility] PT-INR [facility] STAT 05/19/2022 12:01 PM [facility] DIFFERENTIAL MANUAL STAT 05/19/2022 1 2:01 PM [facility] CBC W AUTO DIFFERENTIAL STAT 05/19/2022 12:01 PM [facility] COMPREHENSIVE METABOLIC PANEL STAT 05/19/2022 12:01 PM [facility] PHOSPHORUS BLOOD STAT 05/19/2022 12:0 1 PM [facility] LIPASE BLOOD STAT 05/19/2022 12:01 PM [facility] LACTIC ACID BLOOD STAT 05/19/2022 12: 01 PM [facility] documented in this encounter Results * CARDIAC EKG ORDER (06/06/2022 7:39 AM [facility]) Narrative 06/06/2022 7:39 AM [facility] Ordered by an unspecified provider. Scanned Document CARDIAC SERVICES ORD ERABLES * (ABNORMAL) GLUCOSE - POINT OF CARE (05/30/2022 8:09 AM [facility]) Glucose WB/POC 149(H) 70 - 115 mg/dL 05/30/2022 8:13 AM [facility] Specimen Type Cap Fingerstick 2022 8:13 AM [facility] Blood BLOOD SPECIMEN / Unknown 05/30/2022 8:09 AM [facility] 05/30/2022 8:13 AM [facility] Cristin Salgado MD LAB - POINT OF CARE ORDERABLES [address] [address], [place] [phone] * (ABNORMAL) GLUCOSE - POINT OF CARE (05/30/2022 4:17 AM [facility]) Glucose WB/POC 155(H) 70 - 115 mg/dL 05/30/2022 4:18 AM [facility] Specimen Type Cap Fingerstick 2022 4:18 AM [facility] Blood BLOOD SPECIMEN / Unknown 05/30/2022 4:17 AM [facility] 05/30/2022 4:18 AM [facility] Cristin Salgado MD LAB - POINT OF CARE ORDERABLES [address] [address], [place] [phone] * (ABNORMAL) GLUCOSE - POINT OF CARE (05/29/2022 11:55 PM [facility]) Glucose WB/POC 155(H) 70 - 115 mg/dL 05/29/2022 11:56 PM [facility] Specimen Type Cap Fingerstick 2022 11:56 PM [facility] Blood BLOOD SPECIMEN / Unknown 05/29/2022 11:55 PM [facility] 05/29/2022 11:56 PM [facility] Cristin Salgado MD LAB - POINT OF CARE ORDERABLES [address] [address], [place] [phone] * (ABNORMAL) GLUCOSE - POINT OF CARE (05/29/2022 7:22 PM [facility]) Glucose WB/POC 153(H) 70 - 115 mg/dL 05/29/2022 7:23 PM [facility] CENTER Specimen Type Cap Fingerstick 2022 7:23 PM [facility] Blood BLOOD SPECIMEN / Unknown 05/29/2022 7:22 PM [facility] 05/29/2022 7:23 PM [facility] Cristin Salgado MD LAB - POINT OF CARE ORDERABLES [facility] [address] [place] [address], [place] [phone] * (ABNORMAL) GLUCOSE - POINT OF CARE (05/29/2022 4:24 PM [facility]) Glucose WB/POC 143(H) 70 - 115 mg/dL 05/29/2022 4:30 PM [facility] Specimen Type Cap Fingerstick 2022 4:30 PM [facility] Blood BLOOD SPECIMEN / Unknown 05/29/2022 4:24 PM [facility] 05/29/2022 4:30 PM [facility] Cristin Salgado MD LAB - POINT OF CARE ORDERABLES [facility] [address] [place] [address], [place] [phone] * SARS-COV-2 (COVID-19) RAPID (05/29/2022 3:56 PM [facility]) COVID-19 PCR Not detected Not detected 05/29/19 4:38 PM [facility] Microbiology SPECIMEN FROM NASOPHARYNGEAL STRUCTURE / Unknown Collection / Unknown 05/29/2022 3:56 PM [facility] 05/29/2022 4:00 PM [facility] Narrative [facility] - 05/29/2022 4:38 PM [facility] The Cepheid Xpert Xpress SARS-COV-2 has been [...] Cristin Salgado MD LAB - MICROBIOLOGY ORDERABLES [address] [address], [facility] [phone] * (ABNORMAL) GLUCOSE - POINT OF CARE (05/29/2022 12:10 PM [facility]) Glucose WB/POC 184(H) 70 - 115 mg/dL 05/29/2022 12:17 PM [facility] Specimen Type Cap Fingerstick 2022 12:17 PM [facility] Blood BLOOD SPECIMEN / Unknown 05/29/2022 12:10 PM [facility] 05/29/2022 12:17 PM [facility] Cristin Salgado MD LAB - POINT OF CARE ORDERABLES [address] [address], [place] [phone] * (ABNORMAL) GLUCOSE - POINT OF CARE (05/29/2022 8:24 AM [facility]) Glucose WB/POC 138(H) 70 - 115 mg/dL 05/29/2022 8:29 AM [facility] Specimen Type Arterial 05/29/2022 8:29 AM [facility] Blood BLOOD SPECIMEN / Unknown 05/29/2022 8:24 AM [facility] 05/29/2022 8:29 AM [facility] Cristin Salgado MD LAB - POINT OF CARE ORDERABLES Performing Organization Address City/[facility]/ZIP Co de Phone Number [address] [address], [place] [phone] * (ABNORMAL) PHOSPHORUS BLOOD (05/29/2022 4:58 AM [facility]) Phosphorus 2.2(L) 2.9 - 5.1 mg/dL 05/29/2022 7:02 AM [facility] Blood BLOOD SPECIMEN / Unknown Lab Venipuncture / Unknown 05/29/2022 4:58 AM [facility] 05/29/2022 6:34 AM [facility] Mich Nolan MD LAB - CHEMISTRY ORD ERABLES Performing Organization Address [facility] Co de Phone Number [address] [address], [place] [phone] * MAGNESIUM BLOOD (05/29/2022 4:58 AM [facility]) Magnesium 2.3 1.6 - 2.6 mg/dL 05/29/2022 7:02 AM [facility] Blood BLOOD SPECIMEN / Unknown Lab Venipuncture / Unknown 05/29/2022 4:58 AM [facility] 05/29/2022 6:34 AM [facility] Mich Nolan MD LAB - CHEMISTRY ORD ERABLES Performing Organization Address City/[facility]/ZIP Co de Phone Number [address] [address], [place] [phone] * (ABNORMAL) BASIC METABOLIC PANEL (CALCIUM TOTAL) (05/29/2022 4:58 AM [facility]) BUN 20 7 - 26 mg/dL 05/29/2022 7:02 AM [facility] Creatinine 0.44(L) 0.56 - 0.96 mg/dL 05/29/2022 7:02 AM [facility] Sodium 139 136 - 145 mmol/L 05/29/2022 7:02 AM [facility] Potassium 3.8 3.5 - 4.5 mmol/L 05/29/2022 7:02 AM [facility] Chloride 111(H) 98 - 107 mmol/L 05/29/2022 7:02 AM [facility] CO2 21(L) 22 - 29 mmol/L 05/29/2022 7:02 AM [facility] Glucose 139(H) 70 - 115 mg/dL 05/29/2022 7:02 AM [facility] Calcium 10.2 8.4 - 10.2 mg/dL 05/29/2022 7:02 AM [facility] Anion Gap 11 8 - 18 05/29/2022 7:02 AM [facility] BUN/Creatinine Ratio 45(H) 7 - 23 05/29/2022 7:02 AM [facility] Osmolality Calculated 293 270 - 300 mOsm/kg 05/29/2022 7:02 AM [facility] eGFR by CKD-EPI >90 >=90 mL/min/1.7 3 m2 05/29/2022 7:02 AM [facility] Blood BLOOD SPECIMEN / Unknown Lab Venipuncture / Unknown 05/29/2022 4:58 AM [facility] 05/29/2022 6:34 AM [facility] Cristin Salgado MD LAB - CHEMISTRY ORD ERABLES [facility] [address] [place] [address] [phone] * (ABNORMAL) GLUCOSE - POINT OF CARE (05/29/2022 3:37 AM [facility]) Glucose WB/POC 182(H) 70 - 115 mg/dL 05/29/2022 3:41 AM [facility] Specimen Type Cap Fingerstick 2022 3:41 AM [facility] Blood BLOOD SPECIMEN / Unknown 05/29/2022 3:37 AM [facility] 05/29/2022 3:41 AM [facility] Cristin Salgado MD LAB - POINT OF CARE ORDERABLES [address] [address], [place] [phone] * (ABNORMAL) GLUCOSE - POINT OF CARE (05/28/2022 11:44 PM [facility]) Glucose WB/POC 161(H) 70 - 115 mg/dL 05/28/2022 11:49 PM [facility] Specimen Type Cap Fingerstick 2022 11:49 PM [facility] Blood BLOOD SPECIMEN / Unknown 05/28/2022 11:44 PM [facility] 05/28/2022 11:49 PM [facility] Cristin Salgado MD LAB - POINT OF CARE ORDERABLES [address] [address], [place] [phone] * (ABNORMAL) GLUCOSE - POINT OF CARE (05/28/2022 7:57 PM [facility]) Glucose WB/POC 179(H) 70 - 115 mg/dL 05/28/2022 8:02 PM [facility] Specimen Type Cap Fingerstick 2022 8:02 PM [facility] Blood BLOOD SPECIMEN / Unknown 05/28/2022 7:57 PM [facility] 05/28/2022 8:01 PM [facility] Cristin Salgado MD LAB - POINT OF CARE ORDERABLES [address] [address], [place] [phone] * (ABNORMAL) GLUCOSE - POINT OF CARE (05/28/2022 3:44 PM [facility]) Glucose WB/POC 127(H) 70 - 115 mg/dL 05/28/2022 3:46 PM [facility] Specimen Type Cap Fingerstick 2022 3:46 PM [facility] Blood BLOOD SPECIMEN / Unknown 05/28/2022 3:44 PM [facility] 05/28/2022 3:45 PM [facility] Cristin Salgado MD LAB - POINT OF CARE ORDERABLES [address] [address], [place] [phone] * (ABNORMAL) GLUCOSE - POINT OF CARE (05/28/2022 3:19 PM [facility]) Glucose WB/POC 137(H) 70 - 115 mg/dL 05/28/2022 3:45 PM [facility] Specimen Type Arterial 05/28/2022 3:45 PM [facility] Blood BLOOD SPECIMEN / Unknown 05/28/2022 3:19 PM [facility] 05/28/2022 3:45 PM [facility] Cristin Salgado MD LAB - POINT OF CARE ORDERABLES [address] [address], [place] [phone] * (ABNORMAL) GLUCOSE - POINT OF CARE (05/28/2022 11:07 AM [facility]) Glucose WB/POC 168(H) 70 - 115 mg/dL 05/28/2022 11:12 AM [facility] Specimen Type Arterial 05/28/2022 11:12 AM [facility] Blood BLOOD SPECIMEN / Unknown 05/28/2022 11:07 AM [facility] 05/28/2022 11:12 AM [facility] Cristin Salgado MD LAB - POINT OF CARE ORDERABLES [address] [address], [place] [phone] * (ABNORMAL) GLUCOSE - POINT OF CARE (05/28/2022 7:22 AM [facility]) Glucose WB/POC 126(H) 70 - 115 mg/dL 05/28/2022 7:29 AM [facility] Specimen Type Arterial 05/28/2022 7:29 AM [facility] Blood BLOOD SPECIMEN / Unknown 05/28/2022 7:22 AM [facility] 05/28/2022 7:29 AM [facility] Cristin Salgado MD LAB - POINT OF CARE ORDERABLES [facility] [address] [place] [address], [facility] [phone] * (ABNORMAL) DIFFERENTIAL MANUAL (05/28/2022 6:30 AM [facility]) Pathologist [facility] WBC (corrected for NRBC) 15.4 10? 3 /uL 05/28/2022 7:45 AM [facility] Total Cell Count 100 05/28/19 23 7:45 AM [facility] Neutrophils Absolute Manual 13.09(H) 1.60 - 7.00 10? 3 /uL 05/28/2022 7:45 AM [facility] Comment:(BANDS+SEGS) x WBC = NEUT # (ANC) Lymphocyte Absolute Manual 0.62(L) 1.10 - 3.90 10? 3 /uL 05/28/2022 7:45 AM [facility] Monocytes Absolute Manual 1.39(H) 0.26 - 1.07 10? 3 /uL 05/28/2022 7:45 AM [facility] Eosinophils Absolute Manual 0.15 0.00 - 0.47 10? 3 /uL 05/28/2022 7:45 AM [facility] Basophil Absolute Manual 0.15(H) 0.00 - 0.08 10? 3 /uL 05/28/2022 7:45 AM [facility] Neutrophil % Manual 85(H) 35 - 70 % 05/28/2022 7:45 AM [facility] Lymphocyte % Manual 4(L) 20 - 43 % 05/28/2022 7:45 AM [facility] Monocytes % Manual 9 5 - 13 % 05/28/2022 7:45 AM [facility] Eosinophils % Manual 1 0 - 6 % 05/28/2022 7:45 AM [facility] Basophils % Manual 1 0 - 2 % 05/28/2022 7:45 AM [facility] Platelet Estimate Adequate Adequate 05/28/2022 7:45 AM [facility] Polychromasia Occasional( A) None 05/28/2022 7:45 AM [facility] Large Platelet Count Occasional( A) None 05/28/2022 7:45 AM [facility] Blood BLOOD SPECIMEN / Unknown Lab Venipuncture / Unknown 05/28/2022 6:30 AM [facility] 05/28/2022 7:00 AM [facility] Mich Nolan MD LAB - HEMATOLOGY OR DERABLES [facility] [address] [place] [address], [facility] [phone] * (ABNORMAL) CBC W AUTO DIFFERENTIAL (05/28/2022 6:30 AM [facility]) WBC 15.4(H) 3.5 - 10.5 10? 3 /uL 05/28/2022 7:27 AM [facility] RBC 4.65 3.80 - 5.20 10? 6 /uL 05/28/2022 7:27 AM [facility] Hemoglobin 12.7 12.0 - 15.6 g/dL 05/28/2022 7:27 AM [facility] Hematocrit 39.2 35.0 - 45.0 % 05/28/2022 7:27 AM [facility] MCV 84.3 80.7 - 98.3 fL 05/28/2022 7:27 AM [facility] MCH 27.3 26.7 - 34.0 pg 05/28/2022 7:27 AM [facility] MCHC 32.4 30.8 - 35.9 g/dL 05/28/2022 7:27 AM [facility] RDW-SD 50.5(H) 36.0 - 50.0 fL 05/28/2022 7:27 AM [facility] RDW-CV 16.6(H) 11.2 - 14.8 % 05/28/2022 7:27 AM [facility] Platelet Count 429(H) 150 - 400 10? 3 /uL 05/28/2022 7:27 AM [facility] MPV 9.9 9.4 - 12.9 fL 05/28/2022 7:27 AM [facility] nRBC Absolute 0.08(H) 0 10? 3 /uL 05/28/2022 7:27 AM [facility] nRBC Auto 0.5(H) 0 /100 WBC 05/28/2022 7:27 AM [facility] Blood BLOOD SPECIMEN / Unknown Lab Venipuncture / Unknown 05/28/2022 6:30 AM [facility] 05/28/2022 7:00 AM [facility] Mich Nolan MD LAB - HEMATOLOGY OR DERABLES Performing Organization Address [facility] Co de Phone Number [facility] [address] [place] [address] [phone] * (ABNORMAL) BASIC METABOLIC PANEL (CALCIUM TOTAL) (05/28/2022 6:29 AM [facility]) BUN 13 7 - 26 mg/dL 05/28/2022 7:29 AM [facility] Creatinine 0.40(L) 0.56 - 0.96 mg/dL 05/28/2022 7:29 AM [facility] Sodium 138 136 - 145 mmol/L 05/28/2022 7:29 AM [facility] Potassium 3.8 3.5 - 4.5 mmol/L 05/28/2022 7:29 AM [facility] Chloride 106 98 - 107 mmol/L 05/28/2022 7:29 AM [facility] CO2 23 22 - 29 mmol/L 05/28/2022 7:29 AM [facility] Glucose 142(H) 70 - 115 mg/dL 05/28/2022 7:29 AM [facility] Calcium 10.6(H) 8.4 - 10.2 mg/dL 05/28/2022 7:29 AM [facility] Anion Gap 13 8 - 18 05/28/2022 7:29 AM [facility] BUN/Creatinine Ratio 33(H) 7 - 23 05/28/2022 7:29 AM [facility] Osmolality Calculated 289 270 - 300 mOsm/kg 05/28/2022 7:29 AM [facility] eGFR by CKD-EPI >90 >=90 mL/min/1.7 3 m2 05/28/2022 7:29 AM [facility] Blood BLOOD SPECIMEN / Unknown Lab Venipuncture / Unknown 05/28/2022 6:29 AM [facility] 05/28/2022 7:00 AM [facility] Mich Nolan MD LAB - CHEMISTRY ORD ERABLES Performing Organization Address [facility] Co de Phone Number [address] [address], [facility] [phone] * (ABNORMAL) PT-INR [facility] (05/28/2022 6:29 AM [facility]) PT 15.2(H) 12.1 - 14.8 Seconds 05/28/2022 7:26 AM [facility] INR 1.2 See Comment 05/28/2022 7:26 AM [facility] Comment:The suggested therap eutic range for standard coumadin (warfarin) therapy is an INR of 2.0-3.0. For high-risk patients (Mechanical Mitral Valve Prosthesis, etc.), the suggested prophylactic therapeutic range is an INR of 2.5-3.5. Blood BLOOD SPECIMEN / Unknown Lab Venipuncture / Unknown 05/28/2022 6:29 AM [facility] 05/28/2022 6:59 AM [facility] Mich Nolan MD LAB - COAGULATION O RDERABLES Performing Organization Address [facility]/ZIP Co de Phone Number [address] [address], [place] [phone] * (ABNORMAL) PHOSPHORUS BLOOD (05/28/2022 6:29 AM [facility]) Phosphorus 2.0(L) 2.9 - 5.1 mg/dL 05/28/2022 7:29 AM [facility] Blood BLOOD SPECIMEN / Unknown Lab Venipuncture / Unknown 05/28/2022 6:29 AM [facility] 05/28/2022 7:00 AM [facility] Mich Nolan MD LAB - CHEMISTRY ORD ERABLES [address] [address], [place] [phone] * MAGNESIUM BLOOD (05/28/2022 6:29 AM [facility]) Magnesium 2.4 1.6 - 2.6 mg/dL 05/28/2022 7:29 AM [facility] Blood BLOOD SPECIMEN / Unknown Lab Venipuncture / Unknown 05/28/2022 6:29 AM [facility] 05/28/2022 7:00 AM [facility] Mich Nolan MD LAB - CHEMISTRY ORD ERABLES Performing Organization Address City/[facility]/ZIP Co de Phone Number [address] [address], [place] [phone] * (ABNORMAL) GLUCOSE - POINT OF CARE (05/28/2022 3:50 AM [facility]) Glucose WB/POC 139(H) 70 - 115 mg/dL 05/28/2022 7:29 AM [facility] Specimen Type Cap Fingerstick 2022 7:29 AM [facility] Blood BLOOD SPECIMEN / Unknown 05/28/2022 3:50 AM [facility] 05/28/2022 7:29 AM [facility] Mich Nolan MD LAB - POINT OF CARE ORDERABLES [address] [address], [place] [phone] * (ABNORMAL) GLUCOSE - POINT OF CARE (05/27/2022 11:56 PM [facility]) Glucose WB/POC 136(H) 70 - 115 mg/dL 05/27/2022 11:58 PM [facility] Specimen Type Cap Fingerstick 2022 11:58 PM [facility] Blood BLOOD SPECIMEN / Unknown 05/27/2022 11:56 PM [facility] 05/27/2022 11:58 PM [facility] Mich Nolan MD LAB - POINT OF CARE ORDERABLES [facility] [address] [place] [address], [facility] [phone] * (ABNORMAL) BASIC METABOLIC PANEL (CALCIUM TOTAL) (05/27/2022 11:42 PM [facility]) Pathologist [facility] BUN 15 7 - 26 mg/dL 05/28/2022 12:14 AM [facility] Creatinine 0.48(L) 0.56 - 0.96 mg/dL 05/28/2022 12:14 AM [facility] Sodium 139 136 - 145 mmol/L 05/28/2022 12:14 AM [facility] Potassium 3.7 3.5 - 4.5 mmol/L 05/28/2022 12:14 AM [facility] Chloride 109(H) 98 - 107 mmol/L 05/28/2022 12:14 AM [facility] CO2 24 22 - 29 mmol/L 05/28/2022 12:14 AM [facility] Glucose 149(H) 70 - 115 mg/dL 05/28/2022 12:14 AM [facility] Calcium 10.6(H) 8.4 - 10.2 mg/dL 05/28/2022 12:14 AM [facility] Anion Gap 10 8 - 18 05/28/2022 12:14 AM [facility] BUN/Creatinine Ratio 31(H) 7 - 23 05/28/2022 12:14 AM [facility] Osmolality Calculated 292 270 - 300 mOsm/kg 05/28/2022 12:14 AM [facility] eGFR by CKD-EPI >90 >=90 mL/min/1.7 3 m2 05/28/2022 12:14 AM [facility] Blood BLOOD SPECIMEN / Unknown Lab Venipuncture / Unknown 05/27/2022 11:42 PM [facility] 05/27/2022 11:50 PM [facility] Mich Nolan MD LAB - CHEMISTRY ORD ERABLES [facility] [address] [place] [address], [place] [phone] * (ABNORMAL) GLUCOSE - POINT OF CARE (05/27/2022 8:20 PM [facility]) Glucose WB/POC 148(H) 70 - 115 mg/dL 05/27/2022 8:33 PM [facility] Specimen Type Cap Fingerstick 2022 8:33 PM [facility] Blood BLOOD SPECIMEN / Unknown 05/27/2022 8:20 PM [facility] 05/27/2022 8:33 PM [facility] Mich Nolan MD LAB - POINT OF CARE ORDERABLES Performing Organization Address City/[facility]/ZIP Co de Phone Number [address] [address], [place] [phone] * (ABNORMAL) GLUCOSE - POINT OF CARE (05/27/2022 4:52 PM [facility]) Glucose WB/POC 143(H) 70 - 115 mg/dL 05/27/2022 4:56 PM [facility] Specimen Type Cap Fingerstick 2022 4:56 PM [facility] Blood BLOOD SPECIMEN / Unknown 05/27/2022 4:52 PM [facility] 05/27/2022 4:56 PM [facility] Mich Nolan MD LAB - POINT OF CARE ORDERABLES [address] [address], [place] [phone] * (ABNORMAL) BASIC METABOLIC PANEL (CALCIUM TOTAL) (05/27/2022 3:26 PM [facility]) BUN 18 7 - 26 mg/dL 05/27/2022 4:11 PM [facility] Creatinine 0.54(L) 0.56 - 0.96 mg/dL 05/27/2022 4:11 PM [facility] Sodium 139 136 - 145 mmol/L 05/27/2022 4:11 PM [facility] Potassium 4.0 3.5 - 4.5 mmol/L 05/27/2022 4:11 PM [facility] Chloride 107 98 - 107 mmol/L 05/27/2022 4:11 PM [facility] CO2 25 22 - 29 mmol/L 05/27/2022 4:11 PM [facility] Glucose 161(H) 70 - 115 mg/dL 05/27/2022 4:11 PM [facility] Calcium 10.5(H) 8.4 - 10.2 mg/dL 05/27/2022 4:11 PM [facility] Anion Gap 11 8 - 18 05/27/2022 4:11 PM [facility] BUN/Creatinine Ratio 33(H) 7 - 23 05/27/2022 4:11 PM [facility] Osmolality Calculated 293 270 - 300 mOsm/kg 05/27/2022 4:11 PM [facility] eGFR by CKD-EPI >90 >=90 mL/min/1.7 3 m2 05/27/2022 4:11 PM [facility] Blood BLOOD SPECIMEN / Unknown Lab Venipuncture / Unknown 05/27/2022 3:26 PM [facility] 05/27/2022 3:47 PM [facility] Mich Nolan MD LAB - CHEMISTRY ORD ERABLES [facility] [address] [place] [address], [facility] [phone] * (ABNORMAL) GLUCOSE - POINT OF CARE (05/27/2022 11:57 AM [facility]) Glucose WB/POC 176(H) 70 - 115 mg/dL 05/27/2022 12:02 PM [facility] Specimen Type Cap Fingerstick 2022 12:02 PM [facility] Blood BLOOD SPECIMEN / Unknown 05/27/2022 11:57 AM [facility] 05/27/2022 12:02 PM [facility] Mich Nolan MD LAB - POINT OF CARE ORDERABLES [facility] [address] [place] [address], [facility] [phone] * (ABNORMAL) DIFFERENTIAL MANUAL (05/27/2022 6:39 AM [facility]) WBC (corrected for NRBC) 14.9 10? 3 /uL 05/27/2022 8:09 AM [facility] Total Cell Count 100 05/27/19 23 8:09 AM [facility] Neutrophils Absolute Manual 9.69(H) 1.60 - 7.00 10? 3 /uL 05/27/2022 8:09 AM [facility] Comment:(BANDS+SEGS) x WBC = NEUT # (ANC) Lymphocyte Absolute Manual 1.64 1.10 - 3.90 10? 3 /uL 05/27/2022 8:09 AM [facility] Monocytes Absolute Manual 2.68(H) 0.26 - 1.07 10? 3 /uL 05/27/2022 8:09 AM [facility] Eosinophils Absolute Manual 0.45 0.00 - 0.47 10? 3 /uL 05/27/2022 8:09 AM [facility] Basophil Absolute Manual 0.15(H) 0.00 - 0.08 10? 3 /uL 05/27/2022 8:09 AM [facility] Neutrophil % Manual 65 35 - 70 % 05/27/2022 8:09 AM [facility] Lymphocyte % Manual 11(L) 20 - 43 % 05/27/2022 8:09 AM [facility] Monocytes % Manual 18(H) 5 - 13 % 05/27/2022 8:09 AM [facility] Eosinophils % Manual 3 0 - 6 % 05/27/2022 8:09 AM [facility] Basophils % Manual 1 0 - 2 % 05/27/2022 8:09 AM [facility] Myelocytes % Manual 2(H) 0 % 05/27/2022 8:09 AM [facility] Platelet Estimate Adequate Adequate 05/27/2022 8:09 AM [facility] Macrocytosis Few(A) None 05/27/2022 8:09 AM [facility] Polychromasia Occasional( A) None 05/27/2022 8:09 AM [facility] Large Platelet Count Few(A) None 05/27/2022 8:09 AM [facility] Blood BLOOD SPECIMEN / Unknown Lab Venipuncture / Unknown 05/27/2022 6:39 AM [facility] 05/27/2022 7:26 AM [facility] Mich Nolan MD LAB - HEMATOLOGY OR DERABLES Performing Organization Address [facility]/State/[facility] Co de Phone Number [facility] [address] [place] [phone] [phone] * (ABNORMAL) BASIC METABOLIC PANEL (CALCIUM TOTAL) (05/27/2022 6:39 AM [facility]) BUN 19 7 - 26 mg/dL 05/27/2022 7:57 AM [facility] Creatinine 0.46(L) 0.56 - 0.96 mg/dL 05/27/2022 7:57 AM [facility] Sodium 139 136 - 145 mmol/L 05/27/2022 7:57 AM [facility] Potassium 3.7 3.5 - 4.5 mmol/L 05/27/2022 7:57 AM [facility] Chloride 110(H) 98 - 107 mmol/L 05/27/2022 7:57 AM [facility] CO2 22 22 - 29 mmol/L 05/27/2022 7:57 AM [facility] Glucose 151(H) 70 - 115 mg/dL 05/27/2022 7:57 AM [facility] Calcium 10.1 8.4 - 10.2 mg/dL 05/27/2022 7:57 AM [facility] Anion Gap 11 8 - 18 05/27/2022 7:57 AM [facility] BUN/Creatinine Ratio 41(H) 7 - 23 05/27/2022 7:57 AM [facility] Osmolality Calculated 293 270 - 300 mOsm/kg 05/27/2022 7:57 AM [facility] eGFR by CKD-EPI >90 >=90 mL/min/1.7 3 m2 05/27/2022 7:57 AM [facility] Blood BLOOD SPECIMEN / Unknown Lab Venipuncture / Unknown 05/27/2022 6:39 AM [facility] 05/27/2022 7:26 AM [facility] Mich Nolan MD LAB - CHEMISTRY ORD ERABLES Performing Organization Address City/[facility]/ZIP Co de Phone Number [address] [address], [facility] [phone] * (ABNORMAL) PT-INR [facility] (05/27/2022 6:39 AM [facility]) PT 17.6(H) 12.1 - 14.8 Seconds 05/27/2022 7:52 AM [facility] INR 1.4 See Comment 05/27/2022 7:52 AM [facility] Comment:The suggested therap eutic range for standard coumadin (warfarin) therapy is an INR of 2.0-3.0. For high-risk patients (Mechanical Mitral Valve Prosthesis, etc.), the suggested prophylactic therapeutic range is an INR of 2.5-3.5. Blood BLOOD SPECIMEN / Unknown Lab Venipuncture / Unknown 05/27/2022 6:39 AM [facility] 05/27/2022 7:26 AM [facility] Mich Nolan MD LAB - COAGULATION O RDERABLES [address] [address], [facility] [phone] * (ABNORMAL) PHOSPHORUS BLOOD (05/27/2022 6:39 AM [facility]) Phosphorus 1.7(L) 2.9 - 5.1 mg/dL 05/27/2022 7:57 AM [facility] Blood BLOOD SPECIMEN / Unknown Lab Venipuncture / Unknown 05/27/2022 6:39 AM [facility] 05/27/2022 7:26 AM [facility] Mich Nolan MD LAB - CHEMISTRY ORD ERABLES Performing Organization Address City/[facility]/ZIP Co de Phone Number [address] [address], [facility] [phone] * MAGNESIUM BLOOD (05/27/2022 6:39 AM [facility]) Magnesium 2.4 1.6 - 2.6 mg/dL 05/27/2022 7:57 AM [facility] Blood BLOOD SPECIMEN / Unknown Lab Venipuncture / Unknown 05/27/2022 6:39 AM [facility] 05/27/2022 7:26 AM [facility] Mich Nolan MD LAB - CHEMISTRY ORD ERABLES Performing Organization Address City/[facility]/ZIP Co de Phone Number [address] [address], [facility] [phone] * (ABNORMAL) CBC W AUTO DIFFERENTIAL (05/27/2022 6:39 AM [facility]) WBC 14.9(H) 3.5 - 10.5 10? 3 /uL 05/27/2022 7:45 AM [facility] RBC 4.35 3.80 - 5.20 10? 6 /uL 05/27/2022 7:45 AM [facility] Hemoglobin 11.9(L) 12.0 - 15.6 g/dL 05/27/2022 7:45 AM [facility] Hematocrit 37.2 35.0 - 45.0 % 05/27/2022 7:45 AM [facility] MCV 85.5 80.7 - 98.3 fL 05/27/2022 7:45 AM [facility] MCH 27.4 26.7 - 34.0 pg 05/27/2022 7:45 AM [facility] MCHC 32.0 30.8 - 35.9 g/dL 05/27/2022 7:45 AM [facility] RDW-SD 51.9(H) 36.0 - 50.0 fL 05/27/2022 7:45 AM [facility] RDW-CV 16.9(H) 11.2 - 14.8 % 05/27/2022 7:45 AM [facility] Platelet Count 387 150 - 400 10? 3 /uL 05/27/2022 7:45 AM [facility] MPV 10.1 9.4 - 12.9 fL 05/27/2022 7:45 AM [facility] nRBC Absolute 0.04(H) 0 10? 3 /uL 05/27/2022 7:45 AM [facility] nRBC Auto 0.3(H) 0 /100 WBC 05/27/2022 7:45 AM [facility] Blood BLOOD SPECIMEN / Unknown Lab Venipuncture / Unknown 05/27/2022 6:39 AM [facility] 05/27/2022 7:26 AM [facility] Mich Nolan MD LAB - HEMATOLOGY OR DERABLES [address] [address], [facility] [phone] * (ABNORMAL) GLUCOSE - POINT OF CARE (05/27/2022 3:43 AM [facility]) Pathologist [facility] Glucose WB/POC 149(H) 70 - 115 mg/dL 05/27/2022 3:44 AM [facility] Specimen Type Cap Fingerstick 2022 3:44 AM [facility] Blood BLOOD SPECIMEN / Unknown 05/27/2022 3:43 AM [facility] 05/27/2022 3:44 AM [facility] Mich Nolan MD LAB - POINT OF CARE ORDERABLES [address] [address], [place] [phone] * (ABNORMAL) BASIC METABOLIC PANEL (CALCIUM TOTAL) (05/27/2022 12:40 AM [facility]) BUN 24 7 - 26 mg/dL 05/27/2022 1:15 AM [facility] Creatinine 0.53(L) 0.56 - 0.96 mg/dL 05/27/2022 1:15 AM [facility] Sodium 139 136 - 145 mmol/L 05/27/2022 1:15 AM [facility] Potassium 4.1 3.5 - 4.5 mmol/L 05/27/2022 1:15 AM [facility] Chloride 110(H) 98 - 107 mmol/L 05/27/2022 1:15 AM [facility] CO2 23 22 - 29 mmol/L 05/27/2022 1:15 AM [facility] Glucose 177(H) 70 - 115 mg/dL 05/27/2022 1:15 AM [facility] Calcium 10.0 8.4 - 10.2 mg/dL 05/27/2022 1:15 AM [facility] Anion Gap 10 8 - 18 05/27/2022 1:15 AM [facility] BUN/Creatinine Ratio 45(H) 7 - 23 05/27/2022 1:15 AM [facility] Osmolality Calculated 296 270 - 300 mOsm/kg 05/27/2022 1:15 AM [facility] eGFR by CKD-EPI >90 >=90 mL/min/1.7 3 m2 05/27/2022 1:15 AM [facility] Blood BLOOD SPECIMEN / Unknown Venipuncture / Unknown 05/27/2022 12:40 AM [facility] 05/27/2022 12:48 AM [facility] Mich Nolan MD LAB - CHEMISTRY ORD ERABLES [facility] [address] [place] [address], [facility] [phone] * (ABNORMAL) GLUCOSE - POINT OF CARE (05/27/2022 12:13 AM [facility]) Glucose WB/POC 162(H) 70 - 115 mg/dL 05/27/2022 12:18 AM [facility] Specimen Type Cap Fingerstick 2022 12:18 AM [facility] Blood BLOOD SPECIMEN / Unknown 05/27/2022 12:13 AM [facility] 05/27/2022 12:18 AM [facility] Mich Nolan MD LAB - POINT OF CARE ORDERABLES [address] [address], [place] [phone] * (ABNORMAL) GLUCOSE - POINT OF CARE (05/26/2022 7:50 PM [facility]) Glucose WB/POC 147(H) 70 - 115 mg/dL 05/26/2022 7:55 PM [facility] Specimen Type Cap Fingerstick 2022 7:55 PM [facility] Blood BLOOD SPECIMEN / Unknown 05/26/2022 7:50 PM [facility] 05/26/2022 7:55 PM [facility] Mich Nolan MD LAB - POINT OF CARE ORDERABLES Performing Organization Address City/[facility]/ZIP Co de Phone Number [address] [address], [place] [phone] * (ABNORMAL) GLUCOSE - POINT OF CARE (05/26/2022 4:38 PM [facility]) Glucose WB/POC 160(H) 70 - 115 mg/dL 05/26/2022 4:39 PM [facility] Specimen Type Cap Fingerstick 2022 4:39 PM [facility] Blood BLOOD SPECIMEN / Unknown 05/26/2022 4:38 PM [facility] 05/26/2022 4:39 PM [facility] Mich Nolan MD LAB - POINT OF CARE ORDERABLES [address] [address], [place] [phone] * (ABNORMAL) BASIC METABOLIC PANEL (CALCIUM TOTAL) (05/26/2022 2:28 PM [facility]) BUN 21 7 - 26 mg/dL 05/26/2022 3:47 PM [facility] Creatinine 0.52(L) 0.56 - 0.96 mg/dL 05/26/2022 3:47 PM [facility] Sodium 138 136 - 145 mmol/L 05/26/2022 3:47 PM [facility] Potassium 4.3 3.5 - 4.5 mmol/L 05/26/2022 3:47 PM [facility] Chloride 109(H) 98 - 107 mmol/L 05/26/2022 3:47 PM [facility] CO2 21(L) 22 - 29 mmol/L 05/26/2022 3:47 PM [facility] Glucose 169(H) 70 - 115 mg/dL 05/26/2022 3:47 PM [facility] Calcium 9.8 8.4 - 10.2 mg/dL 05/26/2022 3:47 PM [facility] Anion Gap 12 8 - 18 05/26/2022 3:47 PM [facility] BUN/Creatinine Ratio 40(H) 7 - 23 05/26/2022 3:47 PM [facility] Osmolality Calculated 293 270 - 300 mOsm/kg 05/26/2022 3:47 PM [facility] eGFR by CKD-EPI >90 >=90 mL/min/1.7 3 m2 05/26/2022 3:47 PM [facility] Blood BLOOD SPECIMEN / Unknown Lab Venipuncture / Unknown 05/26/2022 2:28 PM [facility] 05/26/2022 3:21 PM [facility] Mich Nolan MD LAB - CHEMISTRY ORD ERABLES [facility] [address] [place] [address], [facility] [phone] * (ABNORMAL) GLUCOSE - POINT OF CARE (05/26/2022 11:34 AM [facility]) Glucose WB/POC 177(H) 70 - 115 mg/dL 05/26/2022 11:35 AM [facility] Specimen Type Cap Fingerstick 2022 11:35 AM [facility] Blood BLOOD SPECIMEN / Unknown 05/26/2022 11:34 AM [facility] 05/26/2022 11:35 AM [facility] Mich Nolan MD LAB - POINT OF CARE ORDERABLES [facility] [address] [place] [address], [facility] [phone] * (ABNORMAL) GLUCOSE - POINT OF CARE (05/26/2022 8:03 AM [facility]) Glucose WB/POC 131(H) 70 - 115 mg/dL 05/26/2022 8:04 AM [facility] Specimen Type Cap Fingerstick 2022 8:04 AM [facility] Blood BLOOD SPECIMEN / Unknown 05/26/2022 8:03 AM [facility] 05/26/2022 8:04 AM [facility] Mich Nolan MD LAB - POINT OF CARE ORDERABLES [facility] [address] [place] [address], [facility] [phone] * (ABNORMAL) DIFFERENTIAL MANUAL (05/26/2022 6:42 AM [facility]) WBC (corrected for NRBC) 14.1 10? 3 /uL 05/26/2022 8:43 AM [facility] Total Cell Count 100 05/26/19 23 8:43 AM [facility] Neutrophils Absolute Manual 9.17(H) 1.60 - 7.00 10? 3 /uL 05/26/2022 8:43 AM [facility] Comment:(BANDS+SEGS) x WBC = NEUT # (ANC) Lymphocyte Absolute Manual 1.69 1.10 - 3.90 10? 3 /uL 05/26/2022 8:43 AM [facility] Monocytes Absolute Manual 2.26(H) 0.26 - 1.07 10? 3 /uL 05/26/2022 8:43 AM [facility] Eosinophils Absolute Manual 0.14 0.00 - 0.47 10? 3 /uL 05/26/2022 8:43 AM [facility] Neutrophil % Manual 65 35 - 70 % 05/26/2022 8:43 AM [facility] Lymphocyte % Manual 12(L) 20 - 43 % 05/26/2022 8:43 AM [facility] Monocytes % Manual 16(H) 5 - 13 % 05/26/2022 8:43 AM [facility] Eosinophils % Manual 1 0 - 6 % 05/26/2022 8:43 AM [facility] Metamyelocyte % Manual 4(H) 0 % 05/26/2022 8:43 AM [facility] Myelocytes % Manual 2(H) 0 % 05/26/2022 8:43 AM [facility] Platelet Estimate Adequate Adequate 05/26/2022 8:43 AM [facility] Anisocytosis 1+(A) None 05/26/2022 8:43 AM [facility] Polychromasia Occasional( A) None 05/26/2022 8:43 AM [facility] Ovalocytes Occasional( A) None 05/26/2022 8:43 AM [facility] [place] Cells Occasional( A) None 05/26/2022 8:43 AM [facility] Blood BLOOD SPECIMEN / Unknown Lab Venipuncture / Unknown 05/26/2022 6:42 AM [facility] 05/26/2022 7:20 AM [facility] Mich Nolan MD LAB - HEMATOLOGY OR DERABLES [facility] [address] [place] [address], [facility] [phone] * (ABNORMAL) BASIC METABOLIC PANEL (CALCIUM TOTAL) (05/26/2022 6:42 AM [facility]) BUN 19 7 - 26 mg/dL 05/26/2022 8:08 AM [facility] Creatinine 0.50(L) 0.56 - 0.96 mg/dL 05/26/2022 8:08 AM [facility] Sodium 139 136 - 145 mmol/L 05/26/2022 8:08 AM [facility] Potassium 3.9 3.5 - 4.5 mmol/L 05/26/2022 8:08 AM [facility] Chloride 113(H) 98 - 107 mmol/L 05/26/2022 8:08 AM [facility] CO2 19(L) 22 - 29 mmol/L 05/26/2022 8:08 AM [facility] Glucose 149(H) 70 - 115 mg/dL 05/26/2022 8:08 AM [facility] Calcium 9.9 8.4 - 10.2 mg/dL 05/26/2022 8:08 AM [facility] Anion Gap 11 8 - 18 05/26/2022 8:08 AM [facility] BUN/Creatinine Ratio 38(H) 7 - 23 05/26/2022 8:08 AM [facility] Osmolality Calculated 293 270 - 300 mOsm/kg 05/26/2022 8:08 AM [facility] eGFR by CKD-EPI >90 >=90 mL/min/1.7 3 m2 05/26/2022 8:08 AM [facility] Blood BLOOD SPECIMEN / Unknown Lab Venipuncture / Unknown 05/26/2022 6:42 AM [facility] 05/26/2022 7:20 AM [facility] Mich Nolan MD LAB - CHEMISTRY ORD ERABLES [facility] [address] [place] [address] [phone] * (ABNORMAL) PT-INR [facility] (05/26/2022 6:42 AM [facility]) PT 15.0(H) 12.1 - 14.8 Seconds 05/26/2022 7:43 AM [facility] INR 1.2 See Comment 05/26/2022 7:43 AM [facility] Comment:The suggested therap eutic range for standard coumadin (warfarin) therapy is an INR of 2.0-3.0. For high-risk patients (Mechanical Mitral Valve Prosthesis, etc.), the suggested prophylactic therapeutic range is an INR of 2.5-3.5. Blood BLOOD SPECIMEN / Unknown Lab Venipuncture / Unknown 05/26/2022 6:42 AM [facility] 05/26/2022 7:20 AM [facility] Mich Nolan MD LAB - COAGULATION O RDERABLES Performing Organization Address [facility]/ZIP Co de Phone Number [address] [address], [facility] [phone] * (ABNORMAL) PHOSPHORUS BLOOD (05/26/2022 6:42 AM [facility]) Phosphorus 1.8(L) 2.9 - 5.1 mg/dL 05/26/2022 8:08 AM [facility] Blood BLOOD SPECIMEN / Unknown Lab Venipuncture / Unknown 05/26/2022 6:42 AM [facility] 05/26/2022 7:20 AM [facility] Mich Nolan MD LAB - CHEMISTRY ORD ERABLES Performing Organization Address [facility] Co de Phone Number [address] [address], [facility] [phone] * MAGNESIUM BLOOD (05/26/2022 6:42 AM [facility]) Magnesium 2.5 1.6 - 2.6 mg/dL 05/26/2022 8:08 AM [facility] Blood BLOOD SPECIMEN / Unknown Lab Venipuncture / Unknown 05/26/2022 6:42 AM [facility] 05/26/2022 7:20 AM [facility] Mich Nolan MD LAB - CHEMISTRY ORD ERABLES Performing Organization Address [facility] Co de Phone Number [address] [address], [facility] [phone] * (ABNORMAL) CBC W AUTO DIFFERENTIAL (05/26/2022 6:42 AM [facility]) WBC 14.1(H) 3.5 - 10.5 10? 3 /uL 05/26/2022 7:42 AM [facility] RBC 4.39 3.80 - 5.20 10? 6 /uL 05/26/2022 7:42 AM [facility] Hemoglobin 12.1 12.0 - 15.6 g/dL 05/26/2022 7:42 AM [facility] Hematocrit 37.4 35.0 - 45.0 % 05/26/2022 7:42 AM [facility] MCV 85.2 80.7 - 98.3 fL 05/26/2022 7:42 AM [facility] MCH 27.6 26.7 - 34.0 pg 05/26/2022 7:42 AM [facility] MCHC 32.4 30.8 - 35.9 g/dL 05/26/2022 7:42 AM [facility] RDW-SD 52.1(H) 36.0 - 50.0 fL 05/26/2022 7:42 AM [facility] RDW-CV 17.4(H) 11.2 - 14.8 % 05/26/2022 7:42 AM [facility] Platelet Count 371 150 - 400 10? 3 /uL 05/26/2022 7:42 AM [facility] MPV 9.9 9.4 - 12.9 fL 05/26/2022 7:42 AM [facility] nRBC Absolute 0.03(H) 0 10? 3 /uL 05/26/2022 7:42 AM [facility] nRBC Auto 0.2(H) 0 /100 WBC 05/26/2022 7:42 AM [facility] Blood BLOOD SPECIMEN / Unknown Lab Venipuncture / Unknown 05/26/2022 6:42 AM [facility] 05/26/2022 7:20 AM [facility] Mich Nolan MD LAB - HEMATOLOGY OR DERABLES [facility] [address] [place] [address], [facility] [phone] * (ABNORMAL) GLUCOSE - POINT OF CARE (05/26/2022 4:10 AM [facility]) Glucose WB/POC 150(H) 70 - 115 mg/dL 05/26/2022 4:12 AM [facility] Specimen Type Cap Fingerstick 2022 4:12 AM [facility] Blood BLOOD SPECIMEN / Unknown 05/26/2022 4:10 AM [facility] 05/26/2022 4:12 AM [facility] Mich Nolan MD LAB - POINT OF CARE ORDERABLES [facility] [address] [place] [address], [place] [phone] * (ABNORMAL) GLUCOSE - POINT OF CARE (05/25/2022 11:40 PM [facility]) Glucose WB/POC 154(H) 70 - 115 mg/dL 05/26/2022 4:02 AM [facility] Specimen Type Cap Fingerstick 2022 4:02 AM [facility] Blood BLOOD SPECIMEN / Unknown 05/25/2022 11:40 PM [facility] 05/26/2022 4:02 AM [facility] Mich Nolan MD LAB - POINT OF CARE ORDERABLES [facility] [address] [place] [address], [place] [phone] * (ABNORMAL) BASIC METABOLIC PANEL (CALCIUM TOTAL) (05/25/2022 9:07 PM [facility]) BUN 26 7 - 26 mg/dL 05/25/2022 10:25 PM [facility] Creatinine 0.58 0.56 - 0.96 mg/dL 05/25/2022 10:25 PM [facility] Sodium 137 136 - 145 mmol/L 05/25/2022 10:25 PM [facility] Potassium 4.1 3.5 - 4.5 mmol/L 05/25/2022 10:25 PM [facility] Chloride 107 98 - 107 mmol/L 05/25/2022 10:25 PM [facility] CO2 21(L) 22 - 29 mmol/L 05/25/2022 10:25 PM [facility] Glucose 160(H) 70 - 115 mg/dL 05/25/2022 10:25 PM [facility] Calcium 10.0 8.4 - 10.2 mg/dL 05/25/2022 10:25 PM [facility] Anion Gap 13 8 - 18 05/25/2022 10:25 PM [facility] BUN/Creatinine Ratio 45(H) 7 - 23 05/25/2022 10:25 PM [facility] Osmolality Calculated 292 270 - 300 mOsm/kg 05/25/2022 10:25 PM [facility] eGFR by CKD-EPI 90 >=90 mL/min/1.7 3 m2 05/25/2022 10:25 PM [facility] Blood BLOOD SPECIMEN / Unknown Lab Venipuncture / Unknown 05/25/2022 9:07 PM [facility] 05/25/2022 10:00 PM [facility] Mich Nolan MD LAB - CHEMISTRY ORD ERABLES [address] [address], [facility] [phone] * (ABNORMAL) GLUCOSE - POINT OF CARE (05/25/2022 7:50 PM [facility]) Glucose WB/POC 172(H) 70 - 115 mg/dL 05/25/2022 7:55 PM [facility] Specimen Type Cap Fingerstick 2022 7:55 PM [facility] Blood BLOOD SPECIMEN / Unknown 05/25/2022 7:50 PM [facility] 05/25/2022 7:55 PM [facility] Mich Nolan MD LAB - POINT OF CARE ORDERABLES [address] [address], [place] [phone] * (ABNORMAL) GLUCOSE - POINT OF CARE (05/25/2022 4:26 PM [facility]) Glucose WB/POC 205(H) 70 - 115 mg/dL 05/25/2022 4:31 PM [facility] Specimen Type Arterial 05/25/2022 4:31 PM [facility] Blood BLOOD SPECIMEN / Unknown 05/25/2022 4:26 PM [facility] 05/25/2022 4:31 PM [facility] Mich Nolan MD LAB - POINT OF CARE ORDERABLES [facility] [address] [place] [address], [facility] [phone] * (ABNORMAL) BASIC METABOLIC PANEL (CALCIUM TOTAL) (05/25/2022 4:09 PM [facility]) BUN 21 7 - 26 mg/dL 05/25/2022 5:21 PM [facility] Creatinine 0.61 0.56 - 0.96 mg/dL 05/25/2022 5:21 PM [facility] Sodium 140 136 - 145 mmol/L 05/25/2022 5:21 PM [facility] Potassium 4.2 3.5 - 4.5 mmol/L 05/25/2022 5:21 PM [facility] Chloride 108(H) 98 - 107 mmol/L 05/25/2022 5:21 PM [facility] CO2 21(L) 22 - 29 mmol/L 05/25/2022 5:21 PM [facility] Glucose 191(H) 70 - 115 mg/dL 05/25/2022 5:21 PM [facility] Calcium 10.3(H) 8.4 - 10.2 mg/dL 05/25/2022 5:21 PM [facility] Anion Gap 15 8 - 18 05/25/2022 5:21 PM [facility] BUN/Creatinine Ratio 34(H) 7 - 23 05/25/2022 5:21 PM [facility] Osmolality Calculated 298 270 - 300 mOsm/kg 05/25/2022 5:21 PM [facility] eGFR by CKD-EPI 89(L) >=90 mL/min/1.7 3 m2 05/25/2022 5:21 PM [facility] Blood BLOOD SPECIMEN / Unknown Lab Venipuncture / Unknown 05/25/2022 4:09 PM [facility] 05/25/2022 4:51 PM [facility] Mich Nolan MD LAB - CHEMISTRY ORD ERABLES [address] [address], [place] [phone] * (ABNORMAL) GLUCOSE - POINT OF CARE (05/25/2022 11:59 AM [facility]) Glucose WB/POC 237(H) 70 - 115 mg/dL 05/25/2022 12:01 PM [facility] Specimen Type Arterial 05/25/2022 12:01 PM [facility] Blood BLOOD SPECIMEN / Unknown 05/25/2022 11:59 AM [facility] 05/25/2022 12:01 PM [facility] Mich Nolan MD LAB - POINT OF CARE ORDERABLES [address] [address], [place] [phone] * (ABNORMAL) GLUCOSE - POINT OF CARE (05/25/2022 8:19 AM [facility]) Glucose WB/POC 141(H) 70 - 115 mg/dL 05/25/2022 8:24 AM [facility] Specimen Type Arterial 05/25/2022 8:24 AM [facility] Blood BLOOD SPECIMEN / Unknown 05/25/2022 8:19 AM [facility] 05/25/2022 8:24 AM [facility] Mich Nolan MD LAB - POINT OF CARE ORDERABLES [address] [address], [place] [phone] * (ABNORMAL) DIFFERENTIAL MANUAL (05/25/2022 6:29 AM [facility]) WBC (corrected for NRBC) 15.6 10? 3 /uL 05/25/2022 9:47 AM [facility] Total Cell Count 100 05/25/19 9:47 AM [facility] Neutrophils Absolute Manual 11.54(H) 1.60 - 7.00 10? 3 /uL 05/25/2022 9:47 AM [facility] Comment:(BANDS+SEGS) x WBC = NEUT # (ANC) Lymphocyte Absolute Manual 1.72 1.10 - 3.90 10? 3 /uL 05/25/2022 9:47 AM [facility] Monocytes Absolute Manual 1.87(H) 0.26 - 1.07 10? 3 /uL 05/25/2022 9:47 AM [facility] Eosinophils Absolute Manual 0.47 0.00 - 0.47 10? 3 /uL 05/25/2022 9:47 AM [facility] Band % Manual 1 0 - 10 % 05/25/2022 9:47 AM [facility] Neutrophil % Manual 73(H) 35 - 70 % 05/25/2022 9:47 AM [facility] Lymphocyte % Manual 11(L) 20 - 43 % 05/25/2022 9:47 AM [facility] Monocytes % Manual 12 5 - 13 % 05/25/2022 9:47 AM [facility] Eosinophils % Manual 3 0 - 6 % 05/25/2022 9:47 AM [facility] Platelet Estimate Adequate Adequate 05/25/2022 9:47 AM [facility] Polychromasia Occasional( A) None 05/25/2022 9:47 AM [facility] [place] Cells Occasional( A) None 05/25/2022 9:47 AM [facility] Large Platelet Count Occasional( A) None 05/25/2022 9:47 AM [facility] Blood BLOOD SPECIMEN / Unknown Lab Venipuncture / Unknown 05/25/2022 6:29 AM [facility] 05/25/2022 6:54 AM [facility] Mich Nolan MD LAB - HEMATOLOGY OR DERABLES [facility] [address] [place] [address], [facility] [phone] * (ABNORMAL) BASIC METABOLIC PANEL (CALCIUM TOTAL) (05/25/2022 6:29 AM [facility]) BUN 18 7 - 26 mg/dL 05/25/2022 7:34 AM [facility] Creatinine 0.61 0.56 - 0.96 mg/dL 05/25/2022 7:34 AM [facility] Sodium 136 136 - 145 mmol/L 05/25/2022 7:34 AM [facility] Potassium 4.0 3.5 - 4.5 mmol/L 05/25/2022 7:34 AM [facility] Chloride 106 98 - 107 mmol/L 05/25/2022 7:34 AM [facility] CO2 24 22 - 29 mmol/L 05/25/2022 7:34 AM [facility] Glucose 159(H) 70 - 115 mg/dL 05/25/2022 7:34 AM [facility] Calcium 10.7(H) 8.4 - 10.2 mg/dL 05/25/2022 7:34 AM [facility] Anion Gap 10 8 - 18 05/25/2022 7:34 AM [facility] BUN/Creatinine Ratio 30(H) 7 - 23 05/25/2022 7:34 AM [facility] Osmolality Calculated 287 270 - 300 mOsm/kg 05/25/2022 7:34 AM [facility] eGFR by CKD-EPI 89(L) >=90 mL/min/1.7 3 m2 05/25/2022 7:34 AM [facility] Blood BLOOD SPECIMEN / Unknown Lab Venipuncture / Unknown 05/25/2022 6:29 AM [facility] 05/25/2022 6:54 AM [facility] Mich Nolan MD LAB - CHEMISTRY ORD ERABLES Performing Organization Address City/[facility]/ZIP Co de Phone Number [facility] [address] [place] [address], [facility] [phone] * (ABNORMAL) PT-INR [facility] (05/25/2022 6:29 AM [facility]) PT 15.8(H) 12.1 - 14.8 Seconds 05/25/2022 7:38 AM [facility] INR 1.3 See Comment 05/25/2022 7:38 AM [facility] Comment:The suggested therap eutic range for standard coumadin (warfarin) therapy is an INR of 2.0-3.0. For high-risk patients (Mechanical Mitral Valve Prosthesis, etc.), the suggested prophylactic therapeutic range is an INR of 2.5-3.5. Blood BLOOD SPECIMEN / Unknown Lab Venipuncture / Unknown 05/25/2022 6:29 AM [facility] 05/25/2022 6:54 AM [facility] Mich Nolan MD LAB - COAGULATION O RDERABLES Performing Organization Address City/[facility]/ZIP Co de Phone Number [address] [address], [facility] [phone] * (ABNORMAL) PHOSPHORUS BLOOD (05/25/2022 6:29 AM [facility]) Phosphorus 2.3(L) 2.9 - 5.1 mg/dL 05/25/2022 7:34 AM [facility] Blood BLOOD SPECIMEN / Unknown Lab Venipuncture / Unknown 05/25/2022 6:29 AM [facility] 05/25/2022 6:54 AM [facility] Mich Nolan MD LAB - CHEMISTRY ORD ERABLES [address] [address], [facility] [phone] * (ABNORMAL) MAGNESIUM BLOOD (05/25/2022 6:29 AM [facility]) Magnesium 2.8(H) 1.6 - 2.6 mg/dL 05/25/2022 7:34 AM [facility] Blood BLOOD SPECIMEN / Unknown Lab Venipuncture / Unknown 05/25/2022 6:29 AM [facility] 05/25/2022 6:54 AM [facility] Mich Nolan MD LAB - CHEMISTRY ORD ERABLES [facility] [address] [place] [address], [facility] [phone] * (ABNORMAL) CBC W AUTO DIFFERENTIAL (05/25/2022 6:29 AM [facility]) WBC 15.6(H) 3.5 - 10.5 10? 3 /uL 05/25/2022 7:00 AM [facility] RBC 4.65 3.80 - 5.20 10? 6 /uL 05/25/2022 7:00 AM [facility] Hemoglobin 12.9 12.0 - 15.6 g/dL 05/25/2022 7:00 AM [facility] Hematocrit 39.8 35.0 - 45.0 % 05/25/2022 7:00 AM [facility] MCV 85.6 80.7 - 98.3 fL 05/25/2022 7:00 AM [facility] MCH 27.7 26.7 - 34.0 pg 05/25/2022 7:00 AM [facility] MCHC 32.4 30.8 - 35.9 g/dL 05/25/2022 7:00 AM [facility] RDW-SD 51.8(H) 36.0 - 50.0 fL 05/25/2022 7:00 AM [facility] RDW-CV 17.4(H) 11.2 - 14.8 % 05/25/2022 7:00 AM [facility] Platelet Count 333 150 - 400 10? 3 /uL 05/25/2022 7:00 AM [facility] MPV 10.0 9.4 - 12.9 fL 05/25/2022 7:00 AM [facility] nRBC Absolute 0.02(H) 0 10? 3 /uL 05/25/2022 7:00 AM [facility] nRBC Auto 0.1(H) 0 /100 WBC 05/25/2022 7:00 AM [facility] Blood BLOOD SPECIMEN / Unknown Lab Venipuncture / Unknown 05/25/2022 6:29 AM [facility] 05/25/2022 6:54 AM [facility] Mich Nolan MD LAB - HEMATOLOGY OR DERABLES [address] [address], [facility] [phone] * (ABNORMAL) GLUCOSE - POINT OF CARE (05/25/2022 12:00 AM [facility]) Glucose WB/POC 201(H) 70 - 115 mg/dL 05/25/2022 6:21 AM [facility] Specimen Type Cap Fingerstick 2022 6:21 AM [facility] Blood BLOOD SPECIMEN / Unknown 05/25/2022 12:00 AM [facility] 05/25/2022 6:21 AM [facility] Mich Nolan MD LAB - POINT OF CARE ORDERABLES [address] [address], [facility] [phone] * (ABNORMAL) BASIC METABOLIC PANEL (CALCIUM TOTAL) (05/24/2022 11:13 PM [facility]) Pathologist [facility] BUN 21 7 - 26 mg/dL 05/25/2022 12:16 AM [facility] Creatinine 0.63 0.56 - 0.96 mg/dL 05/25/2022 12:16 AM [facility] Sodium 134(L) 136 - 145 mmol/L 05/25/2022 12:16 AM [facility] Potassium 4.3 3.5 - 4.5 mmol/L 05/25/2022 12:16 AM [facility] Chloride 104 98 - 107 mmol/L 05/25/2022 12:16 AM [facility] CO2 23 22 - 29 mmol/L 05/25/2022 12:16 AM [facility] Glucose 171(H) 70 - 115 mg/dL 05/25/2022 12:16 AM [facility] Calcium 10.2 8.4 - 10.2 mg/dL 05/25/2022 12:16 AM [facility] Anion Gap 11 8 - 18 05/25/2022 12:16 AM [facility] BUN/Creatinine Ratio 33(H) 7 - 23 05/25/2022 12:16 AM [facility] Osmolality Calculated 285 270 - 300 mOsm/kg 05/25/2022 12:16 AM [facility] eGFR by CKD-EPI 88(L) >=90 mL/min/1.7 3 m2 05/25/2022 12:16 AM [facility] Blood BLOOD SPECIMEN / Unknown Lab Venipuncture / Unknown 05/24/2022 11:13 PM [facility] 05/24/2022 11:45 PM [facility] Mich Nolan MD LAB - CHEMISTRY ORD ERABLES [address] [address], [facility] [phone] * (ABNORMAL) GLUCOSE - POINT OF CARE (05/24/2022 8:48 PM [facility]) Glucose WB/POC 173(H) 70 - 115 mg/dL 05/25/2022 6:21 AM [facility] Specimen Type Cap Fingerstick 2022 6:21 AM [facility] Blood BLOOD SPECIMEN / Unknown 05/24/2022 8:48 PM [facility] 05/25/2022 6:21 AM [facility] Mich Nolan MD LAB - POINT OF CARE ORDERABLES [address] [address], [place] [phone] * (ABNORMAL) GLUCOSE - POINT OF CARE (05/24/2022 5:01 PM [facility]) Glucose WB/POC 148(H) 70 - 115 mg/dL 05/24/2022 5:05 PM [facility] Specimen Type Arterial 05/24/2022 5:05 PM [facility] Blood BLOOD SPECIMEN / Unknown 05/24/2022 5:01 PM [facility] 05/24/2022 5:05 PM [facility] Mich Nolan MD LAB - POINT OF CARE ORDERABLES [facility] [address] [place] [address], [facility] [phone] * (ABNORMAL) BASIC METABOLIC PANEL (CALCIUM TOTAL) (05/24/2022 3:57 PM [facility]) BUN 16 7 - 26 mg/dL 05/24/2022 4:36 PM [facility] Creatinine 0.73 0.56 - 0.96 mg/dL 05/24/2022 4:36 PM [facility] Sodium 134(L) 136 - 145 mmol/L 05/24/2022 4:36 PM [facility] Potassium 3.9 3.5 - 4.5 mmol/L 05/24/2022 4:36 PM [facility] Chloride 104 98 - 107 mmol/L 05/24/2022 4:36 PM [facility] CO2 24 22 - 29 mmol/L 05/24/2022 4:36 PM [facility] Glucose 160(H) 70 - 115 mg/dL 05/24/2022 4:36 PM [facility] Calcium 10.3(H) 8.4 - 10.2 mg/dL 05/24/2022 4:36 PM [facility] Anion Gap 10 8 - 18 05/24/2022 4:36 PM [facility] BUN/Creatinine Ratio 22 7 - 23 05/24/2022 4:36 PM [facility] Osmolality Calculated 283 270 - 300 mOsm/kg 05/24/2022 4:36 PM [facility] eGFR by CKD-EPI 82(L) >=90 mL/min/1.7 3 m2 05/24/2022 4:36 PM [facility] Blood BLOOD SPECIMEN / Unknown Lab Venipuncture / Unknown 05/24/2022 3:57 PM [facility] 05/24/2022 4:04 PM [facility] Mich Nolan MD LAB - CHEMISTRY ORD ERABLES [address] [address], [place] [phone] * (ABNORMAL) GLUCOSE - POINT OF CARE (05/24/2022 12:41 PM [facility]) Glucose WB/POC 161(H) 70 - 115 mg/dL 05/24/2022 12:46 PM [facility] Specimen Type Arterial 05/24/2022 12:46 PM [facility] Blood BLOOD SPECIMEN / Unknown 05/24/2022 12:41 PM [facility] 05/24/2022 12:46 PM [facility] Mich Nolan MD LAB - POINT OF CARE ORDERABLES Performing Organization Address City/[facility]/ZIP Co de Phone Number [address] [address], [place] [phone] * (ABNORMAL) GLUCOSE - POINT OF CARE (05/24/2022 7:34 AM [facility]) Glucose WB/POC 124(H) 70 - 115 mg/dL 05/24/2022 7:42 AM [facility] Specimen Type Arterial 05/24/2022 7:42 AM [facility] Blood BLOOD SPECIMEN / Unknown 05/24/2022 7:34 AM [facility] 05/24/2022 7:42 AM [facility] Mich Nolan MD LAB - POINT OF CARE ORDERABLES [address] [address], [place] [phone] * (ABNORMAL) DIFFERENTIAL MANUAL (05/24/2022 6:13 AM [facility]) WBC (corrected for NRBC) 15.0 10? 3 /uL 05/24/2022 8:03 AM [facility] Total Cell Count 100 05/24/19 8:03 AM [facility] Neutrophils Absolute Manual 10.65(H) 1.60 - 7.00 10? 3 /uL 05/24/2022 8:03 AM [facility] Comment:(BANDS+SEGS) x WBC = NEUT # (ANC) Lymphocyte Absolute Manual 1.65 1.10 - 3.90 10? 3 /uL 05/24/2022 8:03 AM [facility] Monocytes Absolute Manual 2.10(H) 0.26 - 1.07 10? 3 /uL 05/24/2022 8:03 AM [facility] Eosinophils Absolute Manual 0.45 0.00 - 0.47 10? 3 /uL 05/24/2022 8:03 AM [facility] Basophil Absolute Manual 0.15(H) 0.00 - 0.08 10? 3 /uL 05/24/2022 8:03 AM [facility] Band % Manual 1 0 - 10 % 05/24/2022 8:03 AM [facility] Neutrophil % Manual 70 35 - 70 % 05/24/2022 8:03 AM [facility] Lymphocyte % Manual 11(L) 20 - 43 % 05/24/2022 8:03 AM [facility] Monocytes % Manual 14(H) 5 - 13 % 05/24/2022 8:03 AM [facility] Eosinophils % Manual 3 0 - 6 % 05/24/2022 8:03 AM [facility] Basophils % Manual 1 0 - 2 % 05/24/2022 8:03 AM [facility] Platelet Estimate Adequate Adequate 05/24/2022 8:03 AM [facility] Anisocytosis Occasional( A) None 05/24/2022 8:03 AM [facility] Macrocytosis Few(A) None 05/24/2022 8:03 AM [facility] Polychromasia Occasional( A) None 05/24/2022 8:03 AM [facility] Ovalocytes Few(A) None 05/24/2022 8:03 AM [facility] Blood BLOOD SPECIMEN / Unknown Lab Venipuncture / Unknown 05/24/2022 6:13 AM [facility] 05/24/2022 6:57 AM [facility] Mich Nolan MD LAB - HEMATOLOGY OR DERABLES [facility] [address] [place] [address], [facility] [phone] * (ABNORMAL) BASIC METABOLIC PANEL (CALCIUM TOTAL) (05/24/2022 6:13 AM [facility]) BUN 16 7 - 26 mg/dL 05/24/2022 7:27 AM [facility] Creatinine 0.55(L) 0.56 - 0.96 mg/dL 05/24/2022 7:27 AM [facility] Sodium 137 136 - 145 mmol/L 05/24/2022 7:27 AM [facility] Potassium 3.8 3.5 - 4.5 mmol/L 05/24/2022 7:27 AM [facility] Chloride 109(H) 98 - 107 mmol/L 05/24/2022 7:27 AM [facility] CO2 23 22 - 29 mmol/L 05/24/2022 7:27 AM [facility] Glucose 134(H) 70 - 115 mg/dL 05/24/2022 7:27 AM [facility] Calcium 10.5(H) 8.4 - 10.2 mg/dL 05/24/2022 7:27 AM [facility] Anion Gap 9 8 - 18 05/24/2022 7:27 AM [facility] BUN/Creatinine Ratio 29(H) 7 - 23 05/24/2022 7:27 AM [facility] Osmolality Calculated 287 270 - 300 mOsm/kg 05/24/2022 7:27 AM [facility] eGFR by CKD-EPI >90 >=90 mL/min/1.7 3 m2 05/24/2022 7:27 AM [facility] Blood BLOOD SPECIMEN / Unknown Lab Venipuncture / Unknown 05/24/2022 6:13 AM [facility] 05/24/2022 6:57 AM [facility] Mich Nolan MD LAB - CHEMISTRY ORD ERABLES [facility] [address] [place] [address], [facility] [phone] * (ABNORMAL) PT-INR [facility] (05/24/2022 6:13 AM [facility]) PT 17.6(H) 12.1 - 14.8 Seconds 05/24/2022 7:22 AM [facility] INR 1.4 See Comment 05/24/2022 7:22 AM [facility] Comment:The suggested therap eutic range for standard coumadin (warfarin) therapy is an INR of 2.0-3.0. For high-risk patients (Mechanical Mitral Valve Prosthesis, etc.), the suggested prophylactic therapeutic range is an INR of 2.5-3.5. Blood BLOOD SPECIMEN / Unknown Lab Venipuncture / Unknown 05/24/2022 6:13 AM [facility] 05/24/2022 6:57 AM [facility] Mich Nolan MD LAB - COAGULATION O RDERABLES [address] [address], [facility] [phone] * (ABNORMAL) PHOSPHORUS BLOOD (05/24/2022 6:13 AM [facility]) Phosphorus 2.4(L) 2.9 - 5.1 mg/dL 05/24/2022 7:27 AM [facility] Blood BLOOD SPECIMEN / Unknown Lab Venipuncture / Unknown 05/24/2022 6:13 AM [facility] 05/24/2022 6:57 AM [facility] Mich Nolan MD LAB - CHEMISTRY ORD ERABLES [address] [address], [facility] [phone] * MAGNESIUM BLOOD (05/24/2022 6:13 AM [facility]) Magnesium 2.4 1.6 - 2.6 mg/dL 05/24/2022 7:27 AM [facility] Blood BLOOD SPECIMEN / Unknown Lab Venipuncture / Unknown 05/24/2022 6:13 AM [facility] 05/24/2022 6:57 AM [facility] Mich Nolan MD LAB - CHEMISTRY ORD ERABLES [facility] [address] [place] [address], [facility] [phone] * (ABNORMAL) CBC W AUTO DIFFERENTIAL (05/24/2022 6:13 AM [facility]) WBC 15.0(H) 3.5 - 10.5 10? 3 /uL 05/24/2022 7:20 AM [facility] RBC 4.46 3.80 - 5.20 10? 6 /uL 05/24/2022 7:20 AM [facility] Hemoglobin 12.3 12.0 - 15.6 g/dL 05/24/2022 7:20 AM [facility] Hematocrit 38.1 35.0 - 45.0 % 05/24/2022 7:20 AM [facility] MCV 85.4 80.7 - 98.3 fL 05/24/2022 7:20 AM [facility] MCH 27.6 26.7 - 34.0 pg 05/24/2022 7:20 AM [facility] MCHC 32.3 30.8 - 35.9 g/dL 05/24/2022 7:20 AM [facility] RDW-SD 51.1(H) 36.0 - 50.0 fL 05/24/2022 7:20 AM [facility] RDW-CV 17.4(H) 11.2 - 14.8 % 05/24/2022 7:20 AM [facility] Platelet Count 293 150 - 400 10? 3 /uL 05/24/2022 7:20 AM [facility] MPV 10.2 9.4 - 12.9 fL 05/24/2022 7:20 AM [facility] nRBC Absolute 0.02(H) 0 10? 3 /uL 05/24/2022 7:20 AM [facility] nRBC Auto 0.1(H) 0 /100 WBC 05/24/2022 7:20 AM [facility] Blood BLOOD SPECIMEN / Unknown Lab Venipuncture / Unknown 05/24/2022 6:13 AM [facility] 05/24/2022 6:57 AM [facility] Mich Nolan MD LAB - HEMATOLOGY OR DERABLES [address] [address], [place] [phone] * (ABNORMAL) GLUCOSE - POINT OF CARE (05/24/2022 3:46 AM [facility]) Glucose WB/POC 171(H) 70 - 115 mg/dL 05/24/2022 3:48 AM [facility] Specimen Type Cap Fingerstick 2022 3:48 AM [facility] Blood BLOOD SPECIMEN / Unknown 05/24/2022 3:46 AM [facility] 05/24/2022 3:48 AM [facility] Mich Noaln MD LAB - POINT OF CARE ORDERABLES Performing Organization Address City/[facility]/ZIP Co de Phone Number [address] [address], [place] [phone] * (ABNORMAL) GLUCOSE - POINT OF CARE (05/24/2022 12:14 AM [facility]) Glucose WB/POC 135(H) 70 - 115 mg/dL 05/24/2022 12:19 AM [facility] Specimen Type Arterial 05/24/2022 12:19 AM [facility] Blood BLOOD SPECIMEN / Unknown 05/24/2022 12:14 AM [facility] 05/24/2022 12:19 AM [facility] Mich Nolan MD LAB - POINT OF CARE ORDERABLES [address] [address], [place] [phone] * (ABNORMAL) BASIC METABOLIC PANEL (CALCIUM TOTAL) (05/23/2022 11:08 PM [facility]) BUN 21 7 - 26 mg/dL 05/24/2022 1:28 AM [facility] Creatinine 0.55(L) 0.56 - 0.96 mg/dL 05/24/2022 1:28 AM [facility] Sodium 134(L) 136 - 145 mmol/L 05/24/2022 1:28 AM [facility] Potassium 3.9 3.5 - 4.5 mmol/L 05/24/2022 1:28 AM [facility] Chloride 105 98 - 107 mmol/L 05/24/2022 1:28 AM [facility] CO2 23 22 - 29 mmol/L 05/24/2022 1:28 AM [facility] Glucose 139(H) 70 - 115 mg/dL 05/24/2022 1:28 AM [facility] Calcium 10.3(H) 8.4 - 10.2 mg/dL 05/24/2022 1:28 AM [facility] Anion Gap 10 8 - 18 05/24/2022 1:28 AM [facility] BUN/Creatinine Ratio 38(H) 7 - 23 05/24/2022 1:28 AM [facility] Osmolality Calculated 283 270 - 300 mOsm/kg 05/24/2022 1:28 AM [facility] eGFR by CKD-EPI >90 >=90 mL/min/1.7 3 m2 05/24/2022 1:28 AM [facility] Blood BLOOD SPECIMEN / Unknown Lab Venipuncture / Unknown 05/23/2022 11:08 PM [facility] 05/24/2022 1:02 AM [facility] Mich Nolan MD LAB - CHEMISTRY ORD ERABLES [facility] [address] [place] [address], [facility] [phone] * (ABNORMAL) GLUCOSE - POINT OF CARE (05/23/2022 9:02 PM [facility]) Glucose WB/POC 187(H) 70 - 115 mg/dL 05/23/2022 9:03 PM [facility] Specimen Type Cap Fingerstick 2022 9:03 PM [facility] Blood BLOOD SPECIMEN / Unknown 05/23/2022 9:02 PM [facility] 05/23/2022 9:03 PM [facility] Mich Nolan MD LAB - POINT OF CARE ORDERABLES [facility] [address] [place] [address], [facility] [phone] * (ABNORMAL) BASIC METABOLIC PANEL (CALCIUM TOTAL) (05/23/2022 5:28 PM [facility]) BUN 14 7 - 26 mg/dL 05/23/2022 8:43 PM [facility] Creatinine 0.67 0.56 - 0.96 mg/dL 05/23/2022 8:43 PM [facility] Sodium 140 136 - 145 mmol/L 05/23/2022 8:43 PM [facility] Potassium 4.2 3.5 - 4.5 mmol/L 05/23/2022 8:43 PM [facility] Chloride 109(H) 98 - 107 mmol/L 05/23/2022 8:43 PM [facility] CO2 20(L) 22 - 29 mmol/L 05/23/2022 8:43 PM [facility] Glucose 117(H) 70 - 115 mg/dL 05/23/2022 8:43 PM [facility] Calcium 9.9 8.4 - 10.2 mg/dL 05/23/2022 8:43 PM [facility] Anion Gap 15 8 - 18 05/23/2022 8:43 PM [facility] BUN/Creatinine Ratio 21 7 - 23 05/23/2022 8:43 PM [facility] Osmolality Calculated 292 270 - 300 mOsm/kg 05/23/2022 8:43 PM [facility] eGFR by CKD-EPI 87(L) >=90 mL/min/1.7 3 m2 05/23/2022 8:43 PM [facility] Blood BLOOD SPECIMEN / Unknown Lab Venipuncture / Unknown 05/23/2022 5:28 PM [facility] 05/23/2022 6:03 PM [facility] Mich Nolan MD LAB - CHEMISTRY ORD ERABLES Performing Organization Address City/[facility]/ZIP Co de Phone Number [address] [address], [place] [phone] * (ABNORMAL) GLUCOSE - POINT OF CARE (05/23/2022 4:24 PM [facility]) Glucose WB/POC 138(H) 70 - 115 mg/dL 05/23/2022 4:25 PM [facility] Specimen Type Arterial 05/23/2022 4:25 PM [facility] Blood BLOOD SPECIMEN / Unknown 05/23/2022 4:24 PM [facility] 05/23/2022 4:25 PM [facility] Mich Nolan MD LAB - POINT OF CARE ORDERABLES Performing Organization Address [facility] Co de Phone Number [address] [address], [place] [phone] * EKG 12-LEAD (05/23/2022 12:55 PM [facility]) Ventricular Rate 76 BPM [facility] MUSE Atrial Rate 76 BPM [facility] P-R Interval 156 ms [facility] QRS Duration ms 98 ms [facility] Q-T Interval ms 362 ms [facility] QTC Calculation (Bezet) 407 ms [facility] Calculated P [place] 42 degrees [facility] Calculated R [place] -46 degrees [facility] Calculated T [place] 27 degrees [facility] Interpretation EKG NORMAL SINUS RHYTHM LEFT ANTERIOR FASCICULAR BLOCK ABNORMAL ECG NO PREVIOUS ECGS AVAILABLE Confirmed by VINI VILLEDA, JOY ([id number]) on 05/24/2022 5:11:57 PM [facility] 05/23/2022 12:5 5 PM [facility] 05/24/2022 5:11 PM [facility] Mich Nolan MD ECG ORDERABLES Performing Organization Address City/[facility]/ZIP Co de Phone Number [facility] * (ABNORMAL) URINALYSIS REFLEX TO MICROSCOPIC NO CULTURE (05/23/2022 12:33 PM [facility]) Color UA Yellow Straw, Yellow 05/23/2022 12:50 PM [facility] Clarity UA Clear Clear 05/23/2022 12:50 PM [facility] Specific Orange UA 1.012 1.005 - 1.030 05/23/2022 12:50 PM [facility] pH UA 7.0 5.0 - 8.0 pH 05/23/2022 12:50 PM [facility] Protein UA Negative Negative 05/23/2022 12:50 PM [facility] Glucose UA 3+(A) Negative 05/23/2022 12:50 PM [facility] Ketone UA Negative Negative 05/23/2022 12:50 PM [facility] Bilirubin UA Negative Negative 05/23/2022 12:50 PM [facility] Blood UA Negative Negative 05/23/2022 12:50 PM [facility] Nitrite UA Negative Negative 05/23/2022 12:50 PM [facility] Leukocyte Esterase Negative Negative 05/23/2022 12:50 PM [facility] Urobilinogen UA 4.0(A) Negative mg/dL 05/23/2022 12:50 PM [facility] RBC UA 0-2 None Seen, 0-2, 3-5 /HPF 05/23/2022 12:50 PM [facility] WBC UA 0-5 None Seen, 0-5 /HPF 05/23/2022 12:50 PM [facility] Squamous Epithelial Cells UA 0-2 None Seen, 0-2, 3-5 /HPF 05/23/2022 12:50 PM [facility] Mucus UA 1+ /LPF 05/23/2022 12:50 PM [facility] Urine URINE SPECIMEN OBTAINED VIA [facility] / Unknown Collection / Unknown 05/23/2022 12:33 PM [facility] 05/23/2022 12:41 PM [facility] - 05/23/2022 12:50 PM [facility] Mich Nolan MD LAB - URINALYSIS OR DERABLES Performing Organization Address City/[facility]/ZIP Co de Phone Number [address] [address], [place] [phone] * (ABNORMAL) GLUCOSE - POINT OF CARE (05/23/2022 11:31 AM [facility]) Glucose WB/POC 129(H) 70 - 115 mg/dL 05/23/2022 11:36 AM [facility] Specimen Type Arterial 05/23/2022 11:36 AM [facility] Blood BLOOD SPECIMEN / Unknown 05/23/2022 11:31 AM [facility] 05/23/2022 11:36 AM [facility] Mich Nolan MD LAB - POINT OF CARE ORDERABLES Performing Organization Address [facility]/ZIP Co de Phone Number [address] [address], [facility] [phone] * GLUCOSE - POINT OF CARE (05/23/2022 8:09 AM [facility]) Glucose WB/POC 113 70 - 115 mg/dL 05/23/2022 8:21 AM [facility] Specimen Type Arterial 05/23/2022 8:21 AM [facility] Blood BLOOD SPECIMEN / Unknown 05/23/2022 8:09 AM [facility] 05/23/2022 8:21 AM [facility] Mich Nolan MD LAB - POINT OF CARE ORDERABLES Performing Organization Address City/[facility]/ZIP Co de Phone Number [address] [address], [place] [phone] * (ABNORMAL) DIFFERENTIAL MANUAL (05/23/2022 5:59 AM [facility]) WBC (corrected for NRBC) 13.3 10? 3 /uL 05/23/2022 8:21 AM [facility] Total Cell Count 100 05/23/2022 8:21 AM [facility] Neutrophils Absolute Manual 11.17(H) 1.60 - 7.00 10? 3 /uL 05/23/2022 8:21 AM [facility] Comment:(BANDS+SEGS) x WBC = NEUT # (ANC) Lymphocyte Absolute Manual 1.20 1.10 - 3.90 10? 3 /uL 05/23/2022 8:21 AM [facility] Monocytes Absolute Manual 0.80 0.26 - 1.07 10? 3 /uL 05/23/2022 8:21 AM [facility] Eosinophils Absolute Manual 0.13 0.00 - 0.47 10? 3 /uL 05/23/2022 8:21 AM [facility] Neutrophil % Manual 84(H) 35 - 70 % 05/23/2022 8:21 AM [facility] Lymphocyte % Manual 9(L) 20 - 43 % 05/23/2022 8:21 AM [facility] Monocytes % Manual 6 5 - 13 % 05/23/2022 8:21 AM [facility] Eosinophils % Manual 1 0 - 6 % 05/23/2022 8:21 AM [facility] Platelet Estimate Adequate Adequate 05/23/2022 8:21 AM [facility] Tirso Cells Occasional(A ) None 05/23/2022 8:21 AM [facility] Blood BLOOD SPECIMEN / Unknown Lab Venipuncture / Unknown 05/23/2022 5:59 AM [facility] 05/23/2022 6:24 AM [facility] Mich Nolan MD LAB - HEMATOLOGY OR DERABLES Performing Organization Address City/State/[facility] Co de Phone Number [facility] [address] [place] [address], [facility] [phone] * (ABNORMAL) BASIC METABOLIC PANEL (CALCIUM TOTAL) (05/23/2022 5:59 AM [facility]) BUN 9 7 - 26 mg/dL 05/23/2022 7:11 AM [facility] Creatinine 0.47(L) 0.56 - 0.96 mg/dL 05/23/2022 7:11 AM [facility] Sodium 141 136 - 145 mmol/L 05/23/2022 7:11 AM [facility] Potassium 3.8 3.5 - 4.5 mmol/L 05/23/2022 7:11 AM [facility] Chloride 110(H) 98 - 107 mmol/L 05/23/2022 7:11 AM [facility] CO2 24 22 - 29 mmol/L 05/23/2022 7:11 AM [facility] Glucose 100 70 - 115 mg/dL 05/23/2022 7:11 AM [facility] Calcium 9.9 8.4 - 10.2 mg/dL 05/23/2022 7:11 AM [facility] Anion Gap 11 8 - 18 05/23/2022 7:11 AM [facility] BUN/Creatinine Ratio 19 7 - 23 05/23/2022 7:11 AM [facility] Osmolality Calculated 291 270 - 300 mOsm/kg 05/23/2022 7:11 AM [facility] eGFR by CKD-EPI >90 >=90 mL/min/1.7 3 m2 05/23/2022 7:11 AM [facility] Blood BLOOD SPECIMEN / Unknown Lab Venipuncture / Unknown 05/23/2022 5:59 AM [facility] 05/23/2022 6:24 AM [facility] Mich Nolan MD LAB - CHEMISTRY ORD ERABLES [facility] [address] [place] [address], [facility] [phone] * (ABNORMAL) PT-INR [facility] (05/23/2022 5:59 AM [facility]) PT 17.6(H) 12.1 - 14.8 Seconds 05/23/2022 6:45 AM [facility] INR 1.4 See Comment 05/23/2022 6:45 AM [facility] Comment:The suggested therap eutic range for standard coumadin (warfarin) therapy is an INR of 2.0-3.0. For high-risk patients (Mechanical Mitral Valve Prosthesis, etc.), the suggested prophylactic therapeutic range is an INR of 2.5-3.5. Blood BLOOD SPECIMEN / Unknown Lab Venipuncture / Unknown 05/23/2022 5:59 AM [facility] 05/23/2022 6:24 AM [facility] Mich Nolan MD LAB - COAGULATION O RDERABLES Performing Organization Address [facility]/ZIP Co de Phone Number [address] [address], [facility] [phone] * (ABNORMAL) PHOSPHORUS BLOOD (05/23/2022 5:59 AM [facility]) Pathologist [facility] Phosphorus 2.8(L) 2.9 - 5.1 mg/dL 05/23/2022 6:56 AM [facility] Blood BLOOD SPECIMEN / Unknown Lab Venipuncture / Unknown 05/23/2022 5:59 AM [facility] 05/23/2022 6:24 AM [facility] Mich Nolan MD LAB - CHEMISTRY ORD ERABLES Performing Organization Address [facility] Co de Phone Number [address] [address], [facility] [phone] * MAGNESIUM BLOOD (05/23/2022 5:59 AM [facility]) Pathologist [facility] Magnesium 2.1 1.6 - 2.6 mg/dL 05/23/2022 6:50 AM [facility] Blood BLOOD SPECIMEN / Unknown Lab Venipuncture / Unknown 05/23/2022 5:59 AM [facility] 05/23/2022 6:24 AM [facility] Mich Nolan MD LAB - CHEMISTRY ORD ERABLES Performing Organization Address City/[facility]/ZIP Co de Phone Number [address] [address], [facility] [phone] * (ABNORMAL) CBC W AUTO DIFFERENTIAL (05/23/2022 5:59 AM [facility]) WBC 13.3(H) 3.5 - 10.5 10? 3 /uL 05/23/2022 6:49 AM [facility] RBC 4.11 3.80 - 5.20 10? 6 /uL 05/23/2022 6:49 AM [facility] Hemoglobin 11.5(L) 12.0 - 15.6 g/dL 05/23/2022 6:49 AM [facility] Hematocrit 34.6(L) 35.0 - 45.0 % 05/23/2022 6:49 AM [facility] MCV 84.2 80.7 - 98.3 fL 05/23/2022 6:49 AM [facility] MCH 28.0 26.7 - 34.0 pg 05/23/2022 6:49 AM [facility] MCHC 33.2 30.8 - 35.9 g/dL 05/23/2022 6:49 AM [facility] RDW-SD 50.8(H) 36.0 - 50.0 fL 05/23/2022 6:49 AM [facility] RDW-CV 17.1(H) 11.2 - 14.8 % 05/23/2022 6:49 AM [facility] Platelet Count 242 150 - 400 10? 3 /uL 05/23/2022 6:49 AM [facility] MPV 10.4 9.4 - 12.9 fL 05/23/2022 6:49 AM [facility] nRBC Absolute 0.03(H) 0 10? 3 /uL 05/23/2022 6:49 AM [facility] nRBC Auto 0.2(H) 0 /100 WBC 05/23/2022 6:49 AM [facility] Blood BLOOD SPECIMEN / Unknown Lab Venipuncture / Unknown 05/23/2022 5:59 AM [facility] 05/23/2022 6:24 AM [facility] Mich Nolan MD LAB - HEMATOLOGY OR DERABLES [facility] [address] [place] [address], [facility] [phone] * GLUCOSE - POINT OF CARE (05/23/2022 4:19 AM [facility]) Glucose WB/POC 105 70 - 115 mg/dL 05/23/2022 4:20 AM [facility] Specimen Type Cap Fingerstick 2022 4:20 AM [facility] Blood BLOOD SPECIMEN / Unknown 05/23/2022 4:19 AM [facility] 05/23/2022 4:20 AM [facility] Mich Nolan MD LAB - POINT OF CARE ORDERABLES Performing Organization Address City/[facility]/ZIP Co de Phone Number [address] [address], [facility] [phone] * GLUCOSE - POINT OF CARE (05/23/2022 12:48 AM [facility]) Glucose WB/POC 99 70 - 115 mg/dL 05/23/2022 12:49 AM [facility] Specimen Type Cap Fingerstick 2022 12:49 AM [facility] Blood BLOOD SPECIMEN / Unknown 05/23/2022 12:48 AM [facility] 05/23/2022 12:49 AM [facility] Mich Nolan MD LAB - POINT OF CARE ORDERABLES Performing Organization Address City/[facility]/ZIP Co de Phone Number [address] [address], [place] [phone] * (ABNORMAL) BASIC METABOLIC PANEL (CALCIUM TOTAL) (05/22/2022 11:10 PM [facility]) BUN 11 7 - 26 mg/dL 05/22/2022 11:44 PM [facility] Creatinine 0.54(L) 0.56 - 0.96 mg/dL 05/22/2022 11:44 PM [facility] Sodium 140 136 - 145 mmol/L 05/22/2022 11:44 PM [facility] Potassium 3.7 3.5 - 4.5 mmol/L 05/22/2022 11:44 PM [facility] Chloride 109(H) 98 - 107 mmol/L 05/22/2022 11:44 PM [facility] CO2 22 22 - 29 mmol/L 05/22/2022 11:44 PM [facility] Glucose 109 70 - 115 mg/dL 05/22/2022 11:44 PM [facility] Calcium 9.5 8.4 - 10.2 mg/dL 05/22/2022 11:44 PM [facility] Anion Gap 13 8 - 18 05/22/2022 11:44 PM [facility] BUN/Creatinine Ratio 20 7 - 23 05/22/2022 11:44 PM [facility] Osmolality Calculated 290 270 - 300 mOsm/kg 05/22/2022 11:44 PM [facility] eGFR by CKD-EPI >90 >=90 mL/min/1.7 3 m2 05/22/2022 11:44 PM [facility] Blood BLOOD SPECIMEN / Unknown Lab Venipuncture / Unknown 05/22/2022 11:10 PM [facility] 05/22/2022 11:13 PM [facility] Mich Nolan MD LAB - CHEMISTRY ORD ERABLES Performing Organization Address City/[facility]/ZIP Co de Phone Number [facility] [address] [place] [phone], [place] [phone] * (ABNORMAL) GLUCOSE - POINT OF CARE (05/22/2022 7:56 PM [facility]) Glucose WB/POC 140(H) 70 - 115 mg/dL 05/22/2022 7:57 PM [facility] Specimen Type Cap Fingerstick 2022 7:57 PM [facility] Blood BLOOD SPECIMEN / Unknown 05/22/2022 7:56 PM [facility] 05/22/2022 7:57 PM [facility] Mich Nolan MD LAB - POINT OF CARE ORDERABLES [facility] [address] [place] [phone], [place] [phone] * (ABNORMAL) GLUCOSE - POINT OF CARE (05/22/2022 3:48 PM [facility]) Glucose WB/POC 133(H) 70 - 115 mg/dL 05/22/2022 3:53 PM [facility] Specimen Type Cap Fingerstick 2022 3:53 PM [facility] Blood BLOOD SPECIMEN / Unknown 05/22/2022 3:48 PM [facility] 05/22/2022 3:53 PM [facility] Mich Nolan MD LAB - POINT OF CARE ORDERABLES Performing Organization Address City/[facility]/ZIP Co de Phone Number [address] [address], [facility] [phone] * GLUCOSE - POINT OF CARE (05/22/2022 12:42 PM [facility]) Glucose WB/POC 95 70 - 115 mg/dL 05/22/2022 12:47 PM [facility] Specimen Type Cap Fingerstick 2022 12:47 PM [facility] Blood BLOOD SPECIMEN / Unknown 05/22/2022 12:42 PM [facility] 05/22/2022 12:47 PM [facility] Mich Nolan MD LAB - POINT OF CARE ORDERABLES Performing Organization Address [facility]/ZIP Co de Phone Number [address] [address], [facility] [phone] * (ABNORMAL) BASIC METABOLIC PANEL (CALCIUM TOTAL) (05/22/2022 11:59 AM [facility]) BUN 9 7 - 26 mg/dL 05/22/2022 1:16 PM [facility] Creatinine 0.58 0.56 - 0.96 mg/dL 05/22/2022 1:16 PM [facility] Sodium 145 136 - 145 mmol/L 05/22/2022 1:16 PM [facility] Potassium 3.9 3.5 - 4.5 mmol/L 05/22/2022 1:16 PM [facility] Chloride 112(H) 98 - 107 mmol/L 05/22/2022 1:16 PM [facility] CO2 23 22 - 29 mmol/L 05/22/2022 1:16 PM [facility] Glucose 87 70 - 115 mg/dL 05/22/2022 1:16 PM [facility] Calcium 9.7 8.4 - 10.2 mg/dL 05/22/2022 1:16 PM [facility] Anion Gap 14 8 - 18 05/22/2022 1:16 PM [facility] BUN/Creatinine Ratio 16 7 - 23 05/22/2022 1:16 PM [facility] Osmolality Calculated 298 270 - 300 mOsm/kg 05/22/2022 1:16 PM [facility] eGFR by CKD-EPI 90 >=90 mL/min/1.7 3 m2 05/22/2022 1:16 PM [facility] Blood BLOOD SPECIMEN / Unknown Lab Venipuncture / Unknown 05/22/2022 11:59 AM [facility] 05/22/2022 12:49 PM [facility] Mich Nolan MD LAB - CHEMISTRY ORD ERABLES Performing Organization Address [facility]/ZIP Co de Phone Number [address] [address], [place] [phone] * (ABNORMAL) PTT [facility] (05/22/2022 11:59 AM [facility]) APTT 68.9(H) 23.0 - 38.4 Seconds 05/22/2022 1:27 PM [facility] Comment:Suggested therapeuti c range for full dose I.V. unfractionated heparin therapy for venous thromboembolism is 71 to 109 seconds. Blood BLOOD SPECIMEN / Unknown Lab Venipuncture / Unknown 05/22/2022 11:59 AM [facility] 05/22/2022 1:16 PM [facility] Mich Nolan MD LAB - COAGULATION O RDERABLES Performing Organization Address [facility]/ZIP Co de Phone Number [address] [address], [place] [phone] * XR ABDOMEN KUB PORTABLE (05/22/2022 8:04 AM [facility]) Anatomical Region Laterality Modality Abdomen Radiographic Miryea ging 05/22/2022 11:0 1 AM [facility] Impressions 05/22/2022 9:26 PM [facility] IMPRESSION: Nonobstructive bowel gas pattern. Large volume of stool within the colon. Report dictated by Derrek Dixon M.D. (radiology administrator) Garret Nascimento MD have personally reviewed and interpreted this examination/study. > Interpreting Provider: Garret Velasco MD on 05/22/2022 9:26 PM Narrative 05/22/2022 9:26 PM [facility] PROCEDURE: ??XR ABDOMEN KUB PORTABLE, DATE/TIME OF EXAM: ??05/22/2022 8:04 AM, LOCATION ??[facility] INDICATION: L89.156: Pressure injury of deep [...] PORTABLE, DATE/TIME OF EXAM: 05/22/2022 8:04AM, LOCATION [facility] INDICATION: L89.156: Pressure injury of deep [...] thecolon. Report dictated by Derrek Dixon M.D. (radiology administrator) Garret Nascimento MD have personally reviewed and interpreted this examination/study. > Interpreting Provider: Garret Velasco MD on 05/22/2022 9:26 PM Mich Nolan MD DIAGNOSTIC IMAGING ORDERABLES * GLUCOSE - POINT OF CARE (05/22/2022 7:52 AM [facility]) [facility] Glucose WB/POC 114 70 - 115 mg/dL 05/22/2022 7:57 AM [facility] Specimen Type Cap Fingerstick 2022 7:57 AM [facility] Blood BLOOD SPECIMEN / Unknown 05/22/2022 7:52 AM [facility] 05/22/2022 7:57 AM [facility] Mich oNlan MD LAB - POINT OF CARE ORDERABLES Performing Organization Address City/State/[facility] Co de Phone Number [facility] [address] [place] [address], [facility] [phone] * (ABNORMAL) BASIC METABOLIC PANEL (CALCIUM TOTAL) (05/22/2022 7:26 AM [facility]) [facility] BUN 9 7 - 26 mg/dL 05/22/2022 8:10 AM [facility] Creatinine 0.55(L) 0.56 - 0.96 mg/dL 05/22/2022 8:10 AM [facility] Sodium 143 136 - 145 mmol/L 05/22/2022 8:10 AM [facility] Potassium 3.9 3.5 - 4.5 mmol/L 05/22/2022 8:10 AM [facility] Chloride 116(H) 98 - 107 mmol/L 05/22/2022 8:10 AM [facility] CO2 22 22 - 29 mmol/L 05/22/2022 8:10 AM [facility] Glucose 106 70 - 115 mg/dL 05/22/2022 8:10 AM [facility] Calcium 9.5 8.4 - 10.2 mg/dL 05/22/2022 8:10 AM [facility] Anion Gap 9 8 - 18 05/22/2022 8:10 AM [facility] BUN/Creatinine Ratio 16 7 - 23 05/22/2022 8:10 AM [facility] Osmolality Calculated 295 270 - 300 mOsm/kg 05/22/2022 8:10 AM [facility] eGFR by CKD-EPI >90 >=90 mL/min/1.7 3 m2 05/22/2022 8:10 AM [facility] Blood BLOOD SPECIMEN / Unknown 05/22/2022 7:26 AM [facility] 05/22/2022 7:38 AM [facility] Mich Nolan MD LAB - CHEMISTRY ORD ERABLES [address] [address], [facility] [phone] * (ABNORMAL) PHOSPHORUS BLOOD (05/22/2022 7:26 AM [facility]) Phosphorus 1.7(L) 2.9 - 5.1 mg/dL 05/22/2022 8:10 AM [facility] Blood BLOOD SPECIMEN / Unknown 05/22/2022 7:26 AM [facility] 05/22/2022 7:38 AM [facility] Mich Nolan MD LAB - CHEMISTRY ORD ERABLES Performing Organization Address City/[facility]/ZIP Co de Phone Number [address] [address], [place] [phone] * MAGNESIUM BLOOD (05/22/2022 7:26 AM [facility]) Magnesium 1.9 1.6 - 2.6 mg/dL 05/22/2022 8:10 AM [facility] Blood BLOOD SPECIMEN / Unknown 05/22/2022 7:26 AM [facility] 05/22/2022 7:38 AM [facility] Mich Nolan MD LAB - CHEMISTRY ORD ERABLES [address] [address], [place] [phone] * (ABNORMAL) CBC W AUTO DIFFERENTIAL (05/22/2022 7:26 AM [facility]) WBC 12.2(H) 3.5 - 10.5 10? 3 /uL 05/22/2022 7:52 AM [facility] RBC 3.92 3.80 - 5.20 10? 6 /uL 05/22/2022 7:52 AM [facility] Hemoglobin 11.0(L) 12.0 - 15.6 g/dL 05/22/2022 7:52 AM [facility] Hematocrit 33.5(L) 35.0 - 45.0 % 05/22/2022 7:52 AM [facility] MCV 85.5 80.7 - 98.3 fL 05/22/2022 7:52 AM [facility] MCH 28.1 26.7 - 34.0 pg 05/22/2022 7:52 AM [facility] MCHC 32.8 30.8 - 35.9 g/dL 05/22/2022 7:52 AM [facility] RDW-SD 52.2(H) 36.0 - 50.0 fL 05/22/2022 7:52 AM [facility] RDW-CV 17.1(H) 11.2 - 14.8 % 05/22/2022 7:52 AM [facility] Platelet Count 236 150 - 400 10? 3 /uL 05/22/2022 7:52 AM [facility] MPV 10.2 9.4 - 12.9 fL 05/22/2022 7:52 AM [facility] nRBC Absolute 0.02(H) 0 10? 3 /uL 05/22/2022 7:52 AM [facility] nRBC Auto 0.2(H) 0 /100 WBC 05/22/2022 7:52 AM [facility] Neutrophils % 64.2 35.0 - 70.0 % 05/22/2022 7:52 AM [facility] Lymphocytes % 14.6(L) 20.0 - 43.0 % 05/22/2022 7:52 AM [facility] Monocytes % 15.5(H) 5.0 - 13.0 % 05/22/2022 7:52 AM [facility] Eosinophils % 2.4 0.0 - 6.0 % 05/22/2022 7:52 AM [facility] Basophil % 0.3 0.0 - 2.0 % 05/22/2022 7:52 AM [facility] Neutrophils Absolute 7.84(H) 1.60 - 7.00 10? 3 /uL 05/22/2022 7:52 AM [facility] Lymphocyte Absolute 1.78 1.10 - 3.90 10? 3 /uL 05/22/2022 7:52 AM [facility] Monocytes Absolute 1.90(H) 0.26 - 1.07 10? 3 /uL 05/22/2022 7:52 AM [facility] Eosinophils Absolute 0.29 0.00 - 0.47 10? 3 /uL 05/22/2022 7:52 AM [facility] Basophils Absolute 0.04 0.00 - 0.08 10? 3 /uL 05/22/2022 7:52 AM [facility] Immature Granulocytes % 3.0(H) 0.0 - 1.0 % 05/22/2022 7:52 AM [facility] Immature Granulocytes Absolute 0.37 05/22/2022 7:52 AM [facility] Blood BLOOD SPECIMEN / Unknown 05/22/2022 7:26 AM [facility] 05/22/2022 7:38 AM [facility] Mich Nolan MD LAB - HEMATOLOGY OR DERABLES [address] [address], [facility] [phone] * (ABNORMAL) GLUCOSE - POINT OF CARE (05/22/2022 5:08 AM [facility]) Glucose WB/POC 139(H) 70 - 115 mg/dL 05/22/2022 5:14 AM [facility] Specimen Type Cap Fingerstick 2022 5:14 AM [facility] Blood BLOOD SPECIMEN / Unknown 05/22/2022 5:08 AM [facility] 05/22/2022 5:14 AM [facility] Mich Nolan MD LAB - POINT OF CARE ORDERABLES Performing Organization Address [facility] Co de Phone Number [address] [address], [facility] [phone] * (ABNORMAL) PTT [facility] (05/22/2022 4:56 AM [facility]) APTT 70.7(H) 23.0 - 38.4 Seconds 05/22/2022 5:24 AM [facility] Comment:Suggested therapeuti c range for full dose I.V. unfractionated heparin therapy for venous thromboembolism is 71 to 109 seconds. Blood BLOOD SPECIMEN / Unknown Venipuncture / Unknown 05/22/2022 4:56 AM [facility] 05/22/2022 4:56 AM [facility] Mich Nolan MD LAB - COAGULATION O RDERABLES Performing Organization Address [facility] Co de Phone Number [address] [address], [facility] [phone] * (ABNORMAL) PT-INR [facility] (05/22/2022 4:56 AM [facility]) PT 18.1(H) 12.1 - 14.8 Seconds 05/22/2022 5:22 AM [facility] INR 1.5 See Comment 05/22/2022 5:22 AM [facility] Comment:The suggested therap eutic range for standard coumadin (warfarin) therapy is an INR of 2.0-3.0. For high-risk patients (Mechanical Mitral Valve Prosthesis, etc.), the suggested prophylactic therapeutic range is an INR of 2.5-3.5. Blood BLOOD SPECIMEN / Unknown Venipuncture / Unknown 05/22/2022 4:56 AM [facility] 05/22/2022 4:56 AM [facility] Brayden Villeda MD LAB - COAGULATION OR DERABLES Performing Organization Address [facility] Co de Phone Number [address] [address], [facility] [phone] * (ABNORMAL) GLUCOSE - POINT OF CARE (05/22/2022 1:17 AM [facility]) Glucose WB/POC 117(H) 70 - 115 mg/dL 05/22/2022 1:22 AM [facility] Specimen Type Cap Fingerstick 2022 1:22 AM [facility] Blood BLOOD SPECIMEN / Unknown 05/22/2022 1:17 AM [facility] 05/22/2022 1:22 AM [facility] Mich Nolan MD LAB - POINT OF CARE ORDERABLES [facility] [address] [place] [address], [place] [phone] * GLUCOSE - POINT OF CARE (05/21/2022 8:45 PM [facility]) Glucose WB/POC 97 70 - 115 mg/dL 05/21/2022 8:47 PM [facility] Specimen Type Cap Fingerstick 2022 8:47 PM [facility] Blood BLOOD SPECIMEN / Unknown 05/21/2022 8:45 PM [facility] 05/21/2022 8:47 PM [facility] Mich Nolan MD LAB - POINT OF CARE ORDERABLES Performing Organization Address City/[facility]/ZIP Co de Phone Number [facility] [address] [place] [address], [place] [phone] * (ABNORMAL) PTT [facility] (05/21/2022 7:59 PM [facility]) APTT 186.8(HH) 23.0 - 38.4 Seconds 05/21/2022 8:33 PM [facility] Comment:Suggested therapeuti c range for full dose I.V. unfractionated heparin therapy for venous thromboembolism is 71 to 109 seconds. Blood BLOOD SPECIMEN / Unknown Lab Venipuncture / Unknown 05/21/2022 7:59 PM [facility] 05/21/2022 8:02 PM [facility] Elle Landaverde MD LAB - COAGULATION O RDERABLES [facility] [address] [place] [address], [facility] [phone] * (ABNORMAL) BASIC METABOLIC PANEL (CALCIUM TOTAL) (05/21/2022 7:59 PM [facility]) BUN 11 7 - 26 mg/dL 05/21/2022 8:33 PM [facility] Creatinine 0.52(L) 0.56 - 0.96 mg/dL 05/21/2022 8:33 PM [facility] Sodium 148(H) 136 - 145 mmol/L 05/21/2022 8:33 PM [facility] Potassium 3.9 3.5 - 4.5 mmol/L 05/21/2022 8:33 PM [facility] Chloride 118(H) 98 - 107 mmol/L 05/21/2022 8:33 PM [facility] CO2 23 22 - 29 mmol/L 05/21/2022 8:33 PM [facility] Glucose 105 70 - 115 mg/dL 05/21/2022 8:33 PM [facility] Calcium 9.4 8.4 - 10.2 mg/dL 05/21/2022 8:33 PM [facility] Anion Gap 11 8 - 18 05/21/2022 8:33 PM [facility] BUN/Creatinine Ratio 21 7 - 23 05/21/2022 8:33 PM [facility] Osmolality Calculated 306(H) 270 - 300 mOsm/kg 05/21/2022 8:33 PM [facility] eGFR by CKD-EPI >90 >=90 mL/min/1.7 3 m2 05/21/2022 8:33 PM [facility] Blood BLOOD SPECIMEN / Unknown Lab Venipuncture / Unknown 05/21/2022 7:59 PM [facility] 05/21/2022 8:02 PM [facility] Brayden Villeda MD LAB - CHEMISTRY ROWAN QUIROZ [facility] [address] [place] [address], [facility] [phone] * GLUCOSE - POINT OF CARE (05/21/2022 4:33 PM [facility]) Glucose WB/POC 102 70 - 115 mg/dL 05/21/2022 4:37 PM [facility] Specimen Type Cap Fingerstick 2022 4:37 PM [facility] Blood BLOOD SPECIMEN / Unknown 05/21/2022 4:33 PM [facility] 05/21/2022 4:37 PM [facility] Mich Nolan MD LAB - POINT OF CARE ORDERABLES [address] [address], [facility] [phone] * (ABNORMAL) PT-INR [facility] (05/21/2022 4:21 PM [facility]) Pathologist [facility] PT 27.8(H) 12.1 - 14.8 Seconds 05/21/2022 5:05 PM [facility] INR 2.6 See Comment 05/21/2022 5:05 PM [facility] Comment:The suggested therap eutic range for standard coumadin (warfarin) therapy is an INR of 2.0-3.0. For high-risk patients (Mechanical Mitral Valve Prosthesis, etc.), the suggested prophylactic therapeutic range is an INR of 2.5-3.5. Blood BLOOD SPECIMEN / Unknown Lab Venipuncture / Unknown 05/21/2022 4:21 PM [facility] 05/21/2022 4:42 PM [facility] Elle Landaverde MD LAB - COAGULATION O RDERABLES [address] [address], [facility] [phone] * (ABNORMAL) GLUCOSE - POINT OF CARE (05/21/2022 11:57 AM [facility]) Glucose WB/POC 116(H) 70 - 115 mg/dL 05/21/2022 12:02 PM [facility] Specimen Type Cap Fingerstick 2022 12:02 PM [facility] Blood BLOOD SPECIMEN / Unknown 05/21/2022 11:57 AM [facility] 05/21/2022 12:02 PM [facility] Mich Nolan MD LAB - POINT OF CARE ORDERABLES [address] [address], [facility] [phone] * GLUCOSE - POINT OF CARE (05/21/2022 8:39 AM [facility]) Glucose WB/POC 114 70 - 115 mg/dL 05/21/2022 12:02 PM [facility] Specimen Type Cap Fingerstick 2022 12:02 PM [facility] Blood BLOOD SPECIMEN / Unknown 05/21/2022 8:39 AM [facility] 05/21/2022 12:02 PM [facility] Mich Nolan MD LAB - POINT OF CARE ORDERABLES Performing Organization Address City/[facility]/ZIP Co de Phone Number [address] [address], [facility] [phone] * XR ABDOMEN KUB (05/21/2022 7:30 AM [facility]) Anatomical Region Laterality Modality Abdomen Radiographic Mireya ging 05/21/2022 7:21 AM [facility] Narrative 05/22/2022 11:22 AM [facility] PROCEDURE: ??XR ABDOMEN KUB, DATE/TIME OF EXAM: ??05/21/2022 6:54 AM, LOCATION [facility] INDICATION: K56.7: Ileus (CMS/HCC) ADDITIONAL CLINICAL [...] clear. Report dictated by Huy Zuniga M.D. (radiology administrator). > Dictated by Huy Zuniga ([employer] House Attendant) 05/22/2022 9:35 AM Nelson Nascimento MD have personally reviewed and interpreted this examination/study. > Interpreting Provider: Nelson Cruz MD on 05/22/2022 11:22 AM Procedure Note Nelson Cruz MD - 05/22/2022 PROCEDURE: XR ABDOMEN KUB, DATE/TIME OF EXAM: 05/21/2022 6:54 AM, LOCATION [facility] INDICATION: K56.7: Ileus (CMS/HCC) ADDITIONAL CLINICAL [...] clear. Report dictated by Huy Zuniga M.D. (radiology administrator). > Dictated by Huy Znuiga ([employer] Attendant) 05/22/2022 9:35 AM Nelson Nascimento MD have personally reviewed and interpreted this examination/study. > Interpreting Provider: Nelson Cruz MD on 05/22/2022 11:22 AM Moe Russell MD DIAGNOSTIC IMAGING O RDERABLES * (ABNORMAL) DIFFERENTIAL MANUAL (05/21/2022 6:23 AM [facility]) WBC (corrected for NRBC) 13.5 10? 3 /uL 05/21/2022 7:[address] [facility] Total Cell Count 100 05/21/19 7:31 AM [facility] Neutrophils Absolute Manual 9.32(H) 1.60 - 7.00 10? 3 /uL 05/21/2022 7:31 AM [facility] Comment:(BANDS+SEGS) x WBC = NEUT # (ANC) Lymphocyte Absolute Manual 1.35 1.10 - 3.90 10? 3 /uL 05/21/2022 7:31 AM [facility] Monocytes Absolute Manual 2.16(H) 0.26 - 1.07 10? 3 /uL 05/21/2022 7:31 AM [facility] Eosinophils Absolute Manual 0.27 0.00 - 0.47 10? 3 /uL 05/21/2022 7:31 AM [facility] Band % Manual 4 0 - 10 % 05/21/2022 7:31 AM [facility] Neutrophil % Manual 65 35 - 70 % 05/21/2022 7:31 AM [facility] Lymphocyte % Manual 10(L) 20 - 43 % 05/21/2022 7:31 AM [facility] Monocytes % Manual 16(H) 5 - 13 % 05/21/2022 7:31 AM [facility] Eosinophils % Manual 2 0 - 6 % 05/21/2022 7:31 AM [facility] Metamyelocyte % Manual 3(H) 0 % 05/21/2022 7:31 AM [facility] Platelet Estimate Adequate Adequate 05/21/2022 7:31 AM [facility] Polychromasia Occasional( A) None 05/21/2022 7:31 AM [facility] Ovalocytes Occasional( A) None 05/21/2022 7:31 AM [facility] [place] Cells 1+(A) None 05/21/2022 7:31 AM [facility] Blood BLOOD SPECIMEN / Unknown Venipuncture / Unknown 05/21/2022 6:23 AM [facility] 05/21/2022 6:32 AM [facility] Brayden Villeda MD LAB - HEMATOLOGY ORD ERABLES [facility] [address] [place] [address], [facility] [phone] * PTH INTACT W/O CALCIUM (05/21/2022 6:23 AM [facility]) PTH Intact 54.7 8.0 - 77.0 pg/mL 05/21/2022 7:12 AM [facility] Blood BLOOD SPECIMEN / Unknown Venipuncture / Unknown 05/21/2022 6:23 AM [facility] 05/21/2022 6:32 AM [facility] Moe Russell MD LAB - CHEMISTRY ROWAN QUIROZ Performing Organization Address City/[facility]/ZIP Co de Phone Number [address] [address], [facility] [phone] * PTT [facility] (05/21/2022 6:23 AM [facility]) Pathologist [facility] APTT 35.3 23.0 - 38.4 Seconds 05/21/2022 7:04 AM [facility] Comment:Suggested therapeuti c range for full dose I.V. unfractionated heparin therapy for venous thromboembolism is 71 to 109 seconds. Blood BLOOD SPECIMEN / Unknown Venipuncture / Unknown 05/21/2022 6:23 AM [facility] 05/21/2022 6:36 AM [facility] Brayden Villeda MD LAB - COAGULATION OR DERABLES Performing Organization Address [facility]/ZIP Co de Phone Number [address] [address], [place] [phone] * (ABNORMAL) BASIC METABOLIC PANEL (CALCIUM TOTAL) (05/21/2022 6:23 AM [facility]) Pathologist [facility] BUN 14 7 - 26 mg/dL 05/21/2022 6:59 AM [facility] Creatinine 0.49(L) 0.56 - 0.96 mg/dL 05/21/2022 6:59 AM [facility] Sodium 151(H) 136 - 145 mmol/L 05/21/2022 6:59 AM [facility] Potassium 3.0(L) 3.5 - 4.5 mmol/L 05/21/2022 6:59 AM [facility] Chloride 116(H) 98 - 107 mmol/L 05/21/2022 6:59 AM [facility] CO2 26 22 - 29 mmol/L 05/21/2022 6:59 AM [facility] Glucose 110 70 - 115 mg/dL 05/21/2022 6:59 AM [facility] Calcium 9.5 8.4 - 10.2 mg/dL 05/21/2022 6:59 AM [facility] Anion Gap 12 8 - 18 05/21/2022 6:59 AM [facility] BUN/Creatinine Ratio 29(H) 7 - 23 05/21/2022 6:59 AM [facility] Osmolality Calculated 313(H) 270 - 300 mOsm/kg 05/21/2022 6:59 AM [facility] eGFR by CKD-EPI >90 >=90 mL/min/1.7 3 m2 05/21/2022 6:59 AM [facility] Blood BLOOD SPECIMEN / Unknown Venipuncture / Unknown 05/21/2022 6:23 AM [facility] 05/21/2022 6:34 AM [facility] Brayden Villeda MD [facility] Organization Address City/State/ZIP Co de Phone Number [facility] [address] [place] [address], [facility] [phone] * (ABNORMAL) PT-INR [facility] (05/21/2022 6:23 AM [facility]) PT 19.6(H) 12.1 - 14.8 Seconds 05/21/2022 7:03 AM [facility] INR 1.7 See Comment 05/21/2022 7:03 AM [facility] Comment:The suggested therap eutic range for standard coumadin (warfarin) therapy is an INR of 2.0-3.0. For high-risk patients (Mechanical Mitral Valve Prosthesis, etc.), the suggested prophylactic therapeutic range is an INR of 2.5-3.5. Blood BLOOD SPECIMEN / Unknown Venipuncture / Unknown 05/21/2022 6:23 AM [facility] 05/21/2022 6:36 AM [facility] Brayden Villeda MD LAB - COAGULATION OR DERABLES [address] [address], [facility] [phone] * (ABNORMAL) PHOSPHORUS BLOOD (05/21/2022 6:23 AM [facility]) Phosphorus 1.1(L) 2.9 - 5.1 mg/dL 05/21/2022 6:59 AM [facility] Blood BLOOD SPECIMEN / Unknown Venipuncture / Unknown 05/21/2022 6:23 AM [facility] 05/21/2022 6:34 AM [facility] Brayden Villeda MD LAB - CHEMISTRY [facility] [facility] Performing Organization Address City/[facility]/ZIP Co de Phone Number [address] [address], [facility] [phone] * MAGNESIUM BLOOD (05/21/2022 6:23 AM [facility]) Magnesium 2.0 1.6 - 2.6 mg/dL 05/21/2022 6:59 AM [facility] Blood BLOOD SPECIMEN / Unknown Venipuncture / Unknown 05/21/2022 6:23 AM [facility] 05/21/2022 6:34 AM [facility] Brayden Villeda MD LAB - CHEMISTRY ROWAN QUIROZ [address] [address], [facility] [phone] * (ABNORMAL) CBC W AUTO DIFFERENTIAL (05/21/2022 6:23 AM [facility]) WBC 13.5(H) 3.5 - 10.5 10? 3 /uL 05/21/2022 6:47 AM [facility] RBC 4.02 3.80 - 5.20 10? 6 /uL 05/21/2022 6:47 AM [facility] Hemoglobin 11.2(L) 12.0 - 15.6 g/dL 05/21/2022 6:47 AM [facility] Hematocrit 33.4(L) 35.0 - 45.0 % 05/21/2022 6:47 AM [facility] MCV 83.1 80.7 - 98.3 fL 05/21/2022 6:47 AM [facility] MCH 27.9 26.7 - 34.0 pg 05/21/2022 6:47 AM [facility] MCHC 33.5 30.8 - 35.9 g/dL 05/21/2022 6:47 AM [facility] RDW-SD 49.9 36.0 - 50.0 fL 05/21/2022 6:47 AM [facility] RDW-CV 16.7(H) 11.2 - 14.8 % 05/21/2022 6:47 AM [facility] Platelet Count 245 150 - 400 10? 3 /uL 05/21/2022 6:47 AM [facility] MPV 10.2 9.4 - 12.9 fL 05/21/2022 6:47 AM [facility] nRBC Absolute 0.00 0 10? 3 /uL 05/21/2022 6:47 AM [facility] nRBC Auto 0.0 0 /100 WBC 05/21/2022 6:47 AM [facility] Blood BLOOD SPECIMEN / Unknown Venipuncture / Unknown 05/21/2022 6:23 AM [facility] 05/21/2022 6:32 AM [facility] Brayden Villeda MD LAB - HEMATOLOGY ORD ERABLES [facility] [address] [place] [address], [facility] [phone] * (ABNORMAL) GLUCOSE - POINT OF CARE (05/21/2022 3:33 AM [facility]) Pathologist [facility] Glucose WB/POC 119(H) 70 - 115 mg/dL 05/21/2022 3:38 AM [facility] Specimen Type Cap Fingerstick 2022 3:38 AM [facility] Blood BLOOD SPECIMEN / Unknown 05/21/2022 3:33 AM [facility] 05/21/2022 3:38 AM [facility] Brayden Villeda MD LAB - POINT OF CARE ORDERABLES [address] [address], [place] [phone] * (ABNORMAL) GLUCOSE - POINT OF CARE (05/21/2022 12:13 AM [facility]) [facility] Glucose WB/POC 120(H) 70 - 115 mg/dL 05/22/2022 2:09 AM [facility] Specimen Type Cap Fingerstick 2022 2:09 AM [facility] Blood BLOOD SPECIMEN / Unknown 05/21/2022 12:13 AM [facility] 05/22/2022 2:09 AM [facility] Brayden Villeda MD LAB - POINT OF CARE ORDERABLES Performing Organization Address City/[facility]/ZIP Co de Phone Number [address] [address], [place] [phone] * SARS-COV-2 (COVID-19) RAPID (05/21/2022 12:07 AM [facility]) [facility] COVID-19 PCR Not detected Not detected 05/21/19 12:50 AM [facility] Microbiology SPECIMEN FROM NASOPHARYNGEAL STRUCTURE / Unknown Collection / Unknown 05/21/2022 12:07 AM [facility] 05/21/2022 12:10 AM [facility] Narrative [facility] - 05/21/2022 12:50 AM [facility] The Cepheid Xpert Xpress SARS-COV-2 has been [...] this EUA assay are available upon request. Brayden Villeda MD LAB - MICROBIOLOGY O RDERABLES [facility] [address] [place] [address], [facility] [phone] * (ABNORMAL) BASIC METABOLIC PANEL (CALCIUM TOTAL) (05/20/2022 9:50 PM [facility]) BUN 16 7 - 26 mg/dL 05/20/2022 10:52 PM [facility] Creatinine 0.46(L) 0.56 - 0.96 mg/dL 05/20/2022 10:52 PM [facility] Sodium 149(H) 136 - 145 mmol/L 05/20/2022 10:52 PM [facility] Potassium 2.4(LL) 3.5 - 4.5 mmol/L 05/20/2022 10:52 PM [facility] Chloride 117(H) 98 - 107 mmol/L 05/20/2022 10:52 PM [facility] CO2 24 22 - 29 mmol/L 05/20/2022 10:52 PM [facility] Glucose 131(H) 70 - 115 mg/dL 05/20/2022 10:52 PM [facility] Calcium 10.3(H) 8.4 - 10.2 mg/dL 05/20/2022 10:52 PM [facility] Anion Gap 10 8 - 18 05/20/2022 10:52 PM [facility] BUN/Creatinine Ratio 35(H) 7 - 23 05/20/2022 10:52 PM [facility] Osmolality Calculated 311(H) 270 - 300 mOsm/kg 05/20/2022 10:52 PM [facility] eGFR by CKD-EPI >90 >=90 mL/min/1.7 3 m2 05/20/2022 10:52 PM [facility] Blood BLOOD SPECIMEN / Unknown Venipuncture / Unknown 05/20/2022 9:50 PM [facility] 05/20/2022 10:15 PM [facility] Brayden Villeda MD LAB - CHEMISTRY ORDMaria E QUIROZ Performing Organization Address City/[facility]/ZIP Co de Phone Number [address] [address], [facility] [phone] * (ABNORMAL) PTT [facility] (05/20/2022 7:55 PM [facility]) APTT 44.7(H) 23.0 - 38.4 Seconds 05/20/2022 8:21 PM [facility] Comment:Suggested therapeuti c range for full dose I.V. unfractionated heparin therapy for venous thromboembolism is 71 to 109 seconds. Blood BLOOD SPECIMEN / Unknown Venipuncture / Unknown 05/20/2022 7:55 PM [facility] 05/20/2022 7:59 PM [facility] Brayden Villeda MD LAB - COAGULATION OR DERABLES Performing Organization Address [facility]/ZIP Co de Phone Number [address] [address], [place] [phone] * (ABNORMAL) GLUCOSE - POINT OF CARE (05/20/2022 7:54 PM [facility]) Glucose WB/POC 134(H) 70 - 115 mg/dL 05/20/2022 8:03 PM [facility] Specimen Type Cap Fingerstick 2022 8:03 PM [facility] Blood BLOOD SPECIMEN / Unknown 05/20/2022 7:54 PM [facility] 05/20/2022 8:03 PM [facility] Brayden Villeda MD LAB - POINT OF CARE ORDERABLES Performing Organization Address City/[facility]/ZIP Co de Phone Number [address] [address], [place] [phone] * (ABNORMAL) GLUCOSE - POINT OF CARE (05/20/2022 7:52 PM [facility]) Glucose WB/POC 460(HH) 70 - 115 mg/dL 05/20/2022 8:03 PM [facility] Specimen Type Venous 05/20/2022 8:03 PM [facility] Blood BLOOD SPECIMEN / Unknown 05/20/2022 7:52 PM [facility] 05/20/2022 8:03 PM [facility] Brayden Villeda MD LAB - POINT OF CARE ORDERABLES [address] [address], [place] [phone] * (ABNORMAL) GLUCOSE - POINT OF CARE (05/20/2022 3:07 PM [facility]) Glucose WB/POC 139(H) 70 - 115 mg/dL 05/20/2022 4:28 PM [facility] Specimen Type Cap Fingerstick 2022 4:28 PM [facility] Blood BLOOD SPECIMEN / Unknown 05/20/2022 3:07 PM [facility] 05/20/2022 4:28 PM [facility] Brayden Villeda MD LAB - POINT OF CARE ORDERABLES Performing Organization Address City/[facility]/ZIP Co de Phone Number [address] [address], [place] [phone] * TSH REFLEX FREE T4 (05/20/2022 1:44 PM [facility]) TSH 0.686 0.350 - 4.940 uIU/mL 05/20/2022 2:41 PM [facility] Blood BLOOD SPECIMEN / Unknown Venipuncture / Unknown 05/20/2022 1:44 PM [facility] 05/20/2022 1:51 PM [facility] Brayden Villeda MD LAB - CHEMISTRY ROWAN QUIROZ [facility] [address] [place] [address], [place] [phone] * (ABNORMAL) PHOSPHORUS BLOOD (05/20/2022 1:44 PM [facility]) Phosphorus 1.3(L) 2.9 - 5.1 mg/dL 05/20/2022 2:24 PM [facility] Blood BLOOD SPECIMEN / Unknown Venipuncture / Unknown 05/20/2022 1:44 PM [facility] 05/20/2022 1:51 PM [facility] Brayden Villeda MD LAB - CHEMISTRY ROWAN QUIROZ [facility] [address] [place] [address], [place] [phone] * MAGNESIUM BLOOD (05/20/2022 1:44 PM [facility]) Pathologist [facility] Magnesium 1.9 1.6 - 2.6 mg/dL 05/20/2022 2:23 PM [facility] Blood BLOOD SPECIMEN / Unknown Venipuncture / Unknown 05/20/2022 1:44 PM [facility] 05/20/2022 1:51 PM [facility] Brayden Villeda MD LAB - CHEMISTRY ORDMaria E QUIROZ [facility] [address] [place] [address], [place] [phone] * (ABNORMAL) BASIC METABOLIC PANEL (CALCIUM TOTAL) (05/20/2022 1:44 PM [facility]) BUN 18 7 - 26 mg/dL 05/20/2022 2:23 PM [facility] Creatinine 0.53(L) 0.56 - 0.96 mg/dL 05/20/2022 2:23 PM [facility] Sodium 151(H) 136 - 145 mmol/L 05/20/2022 2:23 PM [facility] Potassium 4.0 3.5 - 4.5 mmol/L 05/20/2022 2:23 PM [facility] Chloride 122(H) 98 - 107 mmol/L 05/20/2022 2:23 PM [facility] CO2 24 22 - 29 mmol/L 05/20/2022 2:23 PM [facility] Glucose 142(H) 70 - 115 mg/dL 05/20/2022 2:23 PM [facility] Calcium 9.3 8.4 - 10.2 mg/dL 05/20/2022 2:23 PM [facility] Anion Gap 9 8 - 18 05/20/2022 2:23 PM [facility] BUN/Creatinine Ratio 34(H) 7 - 23 05/20/2022 2:23 PM [facility] Osmolality Calculated 316(H) 270 - 300 mOsm/kg 05/20/2022 2:23 PM [facility] eGFR by CKD-EPI >90 >=90 mL/min/1.7 3 m2 05/20/2022 2:23 PM [facility] Blood BLOOD SPECIMEN / Unknown Venipuncture / Unknown 05/20/2022 1:44 PM [facility] 05/20/2022 1:51 PM [facility] Brayden Villeda MD LAB - CHEMISTRY ORDE RABMANE [address] [address], [place] [phone] * CREATININE URINE RANDOM (05/20/2022 12:52 PM [facility]) Creatinine Urine 29 Not Established mg/dL 05/20/2022 1:12 PM [facility] Urine URINE SPECIMEN OBTAINED BY CLEAN CATCH PROCEDURE / Unknown Collection / Unknown 05/20/2022 12:52 PM [facility] 05/20/2022 12:55 PM [facility] Brayden Villead MD LAB - URINE CHEMISTR Y ORDERABLES [address] [address], [place] [phone] * CT HEAD WO CONTRAST (05/20/2022 12:12 PM [facility]) Anatomical Region Laterality Modality Head Computed Tomogra phy 05/20/2022 12:2 0 PM [facility] Impressions 05/20/2022 1:36 PM [facility] IMPRESSION: No acute intracranial abnormality. Report dictated by Gareth Peraza MD (radiology administrator) Kari Nascimento MD have personally reviewed and interpreted this examination/study. > Interpreting Provider: Kari Reynoso MD on 05/20/2022 1:36 PM Narrative 05/20/2022 1:36 PM [facility] PROCEDURE: ??CT HEAD WO CONTRAST, DATE/TIME OF EXAM: ??05/20/2022 12:13 PM, LOCATION ??[facility] INDICATION: G93.40: Encephalopathy ADDITIONAL CLINICAL INFORMATION: [...] DATE/TIME OF EXAM: 05/20/2022 12:13 PM, LOCATION [facility] INDICATION: G93.40: Encephalopathy ADDITIONAL CLINICAL INFORMATION: [...] abnormality. Report dictated by Gareth Peraza MD (radiology administrator) I, Kari Reynoso MD have personally reviewed and interpreted this examination/study. > Interpreting Provider: Kari Reynoso MD on 05/20/2022 1:36 PM Brayden Villeda MD CT ORDERABLES * (ABNORMAL) GLUCOSE - POINT OF CARE (05/20/2022 11:17 AM [facility]) Glucose WB/POC 128(H) 70 - 115 mg/dL 05/20/2022 4:28 PM [facility] Specimen Type Cap Fingerstick 2022 4:28 PM [facility] Blood BLOOD SPECIMEN / Unknown 05/20/2022 11:17 AM [facility] 05/20/2022 4:28 PM [facility] Brayden Villeda MD LAB - POINT OF CARE ORDERABLES Performing Organization Address City/[facility]/ZIP Co de Phone Number [address] [address], [facility] [phone] * PTT [facility] (05/20/2022 9:48 AM [facility]) [facility] APTT 25.7 23.0 - 38.4 Seconds 05/20/2022 10:17 AM [facility] Comment:Suggested therapeuti c range for full dose I.V. unfractionated heparin therapy for venous thromboembolism is 71 to 109 seconds. Blood BLOOD SPECIMEN / Unknown Venipuncture / Unknown 05/20/2022 9:48 AM [facility] 05/20/2022 9:52 AM [facility] Brayden Villeda MD LAB - COAGULATION OR DERABLES [address] [address], [facility] [phone] * (ABNORMAL) PT-INR [facility] (05/20/2022 9:48 AM [facility]) [facility] PT 20.5(H) 12.1 - 14.8 Seconds 05/20/2022 10:17 AM [facility] INR 1.8 See Comment 05/20/2022 10:17 AM [facility] Comment:The suggested therap eutic range for standard coumadin (warfarin) therapy is an INR of 2.0-3.0. For high-risk patients (Mechanical Mitral Valve Prosthesis, etc.), the suggested prophylactic therapeutic range is an INR of 2.5-3.5. Blood BLOOD SPECIMEN / Unknown Venipuncture / Unknown 05/20/2022 9:48 AM [facility] 05/20/2022 9:52 AM [facility] Brayden Villeda MD LAB - COAGULATION OR DERABLES [facility] [address] [place] [address], [facility] [phone] * POTASSIUM URINE RANDOM (05/20/2022 7:53 AM [facility]) Potassium Urine 44.5 Not Established mmol/L 05/20/2022 8:22 AM [facility] Urine URINE SPECIMEN OBTAINED BY CLEAN CATCH PROCEDURE / Unknown Collection / Unknown 05/20/2022 7:53 AM [facility] 05/20/2022 7:58 AM [facility] Brayden Villeda MD LAB - URINE CHEMISTR Y ORDERABLES [address] [address], [place] [phone] * (ABNORMAL) GLUCOSE - POINT OF CARE (05/20/2022 7:46 AM [facility]) Glucose WB/POC 136(H) 70 - 115 mg/dL 05/20/2022 8:34 AM [facility] Specimen Type Cap Fingerstick 2022 8:34 AM [facility] Blood BLOOD SPECIMEN / Unknown 05/20/2022 7:46 AM [facility] 05/20/2022 8:34 AM [facility] Brayden Villeda MD LAB - POINT OF CARE ORDERABLES [place] [id number] [place] [address], [facility] [phone] * XR ABDOMEN KUB PORTABLE (05/20/2022 7:04 AM [facility]) Anatomical Region Laterality Modality Abdomen Radiographic Mireya ging 05/20/2022 11:4 0 AM [facility] Narrative 05/20/2022 11:49 AM [facility] PROCEDURE: ??XR ABDOMEN KUB PORTABLE, DATE/TIME OF EXAM: ??05/20/2022 7:05 AM, LOCATION ??[facility] INDICATION: R19.4: Change in bowel habits ADDITIONAL CLINICAL INFORMATION: Ordering Provider Reason For Exam: ??obstruction COMPARISON: None. FINDINGS/IMPRESSION: A gastric tube courses below the diaphragm with tip and side-port projecting over the expected location of the stomach. Large stool burden is noted in the colon. Report dictated by Phil Ivory MD (radiology administrator). Reina Nascimento MD have personally reviewed and interpreted this examination/study. > Interpreting Provider: Reina Fletcher MD on 05/20/2022 11:49 AM Procedure Note Reina Fletcher MD - 05/20/2022 PROCEDURE: XR ABDOMEN KUB PORTABLE, DATE/TIME OF EXAM: 05/20/2022 7:05AM, LOCATION [facility] INDICATION: R19.4: Change in bowel habits ADDITIONAL CLINICAL INFORMATION: Ordering Provider Reason For Exam: obstruction COMPARISON: None. FINDINGS/IMPRESSION: A gastric tube courses below the diaphragm with tip and side-port projecting over the expected location of the stomach. Large stool burden is noted in the colon. Report dictated by Phil Ivory MD (radiology administrator). Reina Nascimento MD have personally reviewed and interpreted this examination/study. > Interpreting Provider: Reina Fletcher MD on 1:49 AM [facility] MD DIAGNOSTIC IMAGING O RDERABLES * (ABNORMAL) DIFFERENTIAL MANUAL (05/20/2022 3:36 AM [facility]) WBC (corrected for NRBC) 20.8 10? 3 /uL 05/20/2022 4:31 AM [facility] Total Cell Count 100 05/20/19 4:31 AM [facility] Neutrophils Absolute Manual 15.81(H) 1.60 - 7.00 10? 3 /uL 05/20/2022 4:31 AM [facility] Comment:(BANDS+SEGS) x WBC = NEUT # (ANC) Lymphocyte Absolute Manual 1.46 1.10 - 3.90 10? 3 /uL 05/20/2022 4:31 AM [facility] Monocytes Absolute Manual 3.54(H) 0.26 - 1.07 10? 3 /uL 05/20/2022 4:31 AM [facility] Neutrophil % Manual 76(H) 35 - 70 % 05/20/2022 4:31 AM [facility] Lymphocyte % Manual 7(L) 20 - 43 % 05/20/2022 4:31 AM [facility] Monocytes % Manual 17(H) 5 - 13 % 05/20/2022 4:31 AM [facility] Platelet Estimate Adequate Adequate 05/20/2022 4:31 AM [facility] Polychromasia Occasional( A) None 05/20/2022 4:31 AM [facility] Ovalocytes Occasional( A) None 05/20/2022 4:31 AM [facility] [place] Cells Occasional( A) None 05/20/2022 4:31 AM [facility] Blood BLOOD SPECIMEN / Unknown Venipuncture / Unknown 05/20/2022 3:36 AM [facility] 05/20/2022 3:49 AM [facility] Brayden Villeda MD LAB - HEMATOLOGY ORD ERABLES [facility] [address] [place] [address], [facility] [phone] * (ABNORMAL) CBC W AUTO DIFFERENTIAL (05/20/2022 3:36 AM [facility]) WBC 20.8(H) 3.5 - 10.5 10? 3 /uL 05/20/2022 3:58 AM [facility] RBC 4.25 3.80 - 5.20 10? 6 /uL 05/20/2022 3:58 AM [facility] Hemoglobin 11.7(L) 12.0 - 15.6 g/dL 05/20/2022 3:58 AM [facility] Hematocrit 35.7 35.0 - 45.0 % 05/20/2022 3:58 AM [facility] MCV 84.0 80.7 - 98.3 fL 05/20/2022 3:58 AM [facility] MCH 27.5 26.7 - 34.0 pg 05/20/2022 3:58 AM [facility] MCHC 32.8 30.8 - 35.9 g/dL 05/20/2022 3:58 AM [facility] RDW-SD 49.1 36.0 - 50.0 fL 05/20/2022 3:58 AM [facility] RDW-CV 16.4(H) 11.2 - 14.8 % 05/20/2022 3:58 AM [facility] Platelet Count 276 150 - 400 10? 3 /uL 05/20/2022 3:58 AM [facility] MPV 10.3 9.4 - 12.9 fL 05/20/2022 3:58 AM [facility] nRBC Absolute 0.00 0 10? 3 /uL 05/20/2022 3:58 AM [facility] nRBC Auto 0.0 0 /100 WBC 05/20/2022 3:58 AM [facility] Blood BLOOD SPECIMEN / Unknown Venipuncture / Unknown 05/20/2022 3:36 AM [facility] 05/20/2022 3:49 AM [facility] Brayden Villeda MD LAB - HEMATOLOGY ORD ERABLES [facility] [address] [place] [address], [facility] [phone] * (ABNORMAL) COMPREHENSIVE METABOLIC PANEL (05/20/2022 3:36 AM [facility]) BUN 24 7 - 26 mg/dL 05/20/2022 4:28 AM [facility] Creatinine 0.58 0.56 - 0.96 mg/dL 05/20/2022 4:28 AM [facility] Sodium 148(H) 136 - 145 mmol/L 05/20/2022 4:28 AM [facility] Potassium 2.2(LL) 3.5 - 4.5 mmol/L 05/20/2022 4:28 AM [facility] Chloride 114(H) 98 - 107 mmol/L 05/20/2022 4:28 AM [facility] CO2 26 22 - 29 mmol/L 05/20/2022 4:28 AM [facility] Glucose 114 70 - 115 mg/dL 05/20/2022 4:28 AM [facility] Calcium 9.8 8.4 - 10.2 mg/dL 05/20/2022 4:28 AM [facility] Protein Total 4.9(L) 6.0 - 8.3 g/dL 05/20/2022 4:28 AM [facility] Albumin 2.4(L) 3.4 - 5.0 g/dL 05/20/2022 4:28 AM [facility] Bilirubin Total 0.3 0.2 - 1.2 mg/dL 05/20/2022 4:28 AM [facility] Alkaline Phosphatase 65 40 - 150 U/L 05/20/2022 4:28 AM [facility] ALT 12 5 - 55 U/L 05/20/2022 4:28 AM [facility] AST 12 5 - 34 U/L 05/20/2022 4:28 AM [facility] Anion Gap 10 8 - 18 05/20/2022 4:28 AM [facility] BUN/Creatinine Ratio 41(H) 7 - 23 05/20/2022 4:28 AM [facility] Osmolality Calculated 311(H) 270 - 300 mOsm/kg 05/20/2022 4:28 AM [facility] Albumin/Globulin Ratio 1.0(L) 1.1 - 2.3 05/20/2022 4:28 AM [facility] eGFR by CKD-EPI 90 >=90 mL/min/1.7 3 m2 05/20/2022 4:28 AM [facility] Blood BLOOD SPECIMEN / Unknown Venipuncture / Unknown 05/20/2022 3:36 AM [facility] 05/20/2022 3:49 AM [facility] Brayden Villeda MD LAB - CHEMISTRY ROWAN QUIROZ [address] [address], [place] [phone] * (ABNORMAL) GLUCOSE - POINT OF CARE (05/20/2022 3:35 AM [facility]) Glucose WB/POC 119(H) 70 - 115 mg/dL 05/20/2022 8:34 AM [facility] Specimen Type Venous 05/20/2022 8:34 AM [facility] Blood BLOOD SPECIMEN / Unknown 05/20/2022 3:35 AM [facility] 05/20/2022 8:34 AM [facility] Brayden Villeda MD LAB - POINT OF CARE ORDERABLES Performing Organization Address City/[facility]/ZIP Co de Phone Number [address] [address], [place] [phone] * (ABNORMAL) GLUCOSE - POINT OF CARE (05/20/2022 12:21 AM [facility]) Glucose WB/POC 118(H) 70 - 115 mg/dL 05/20/2022 12:26 AM [facility] Specimen Type Cap Fingerstick 2022 12:26 AM [facility] Blood BLOOD SPECIMEN / Unknown 05/20/2022 12:21 AM [facility] 05/20/2022 12:26 AM [facility] Brayden Villeda MD LAB - POINT OF CARE ORDERABLES [address] [address], [place] [phone] * PHOSPHORUS BLOOD (05/19/2022 8:25 PM [facility]) Pathologist [facility] Phosphorus 3.4 2.9 - 5.1 mg/dL 05/19/2022 9:41 PM [facility] Blood BLOOD SPECIMEN / Unknown Lab Venipuncture / Unknown 05/19/2022 8:25 PM [facility] 05/19/2022 9:24 PM [facility] Brayden Villeda MD LAB - CHEMISTRY ROWAN QUIROZ [address] [address], [facility] [phone] * MAGNESIUM BLOOD (05/19/2022 8:25 PM [facility]) Pathologist [facility] Magnesium 1.9 1.6 - 2.6 mg/dL 05/19/2022 9:40 PM [facility] Blood BLOOD SPECIMEN / Unknown Lab Venipuncture / Unknown 05/19/2022 8:25 PM [facility] 05/19/2022 9:24 PM [facility] Brayden Villeda MD LAB - CHEMISTRY ROWAN QUIROZ [address] [address], [facility] [phone] * (ABNORMAL) BASIC METABOLIC PANEL (CALCIUM TOTAL) (05/19/2022 8:25 PM [facility]) Pathologist [facility] BUN 30(H) 7 - 26 mg/dL 05/19/2022 9:12 PM [facility] Creatinine 0.62 0.56 - 0.96 mg/dL 05/19/2022 9:12 PM [facility] Sodium 146(H) 136 - 145 mmol/L 05/19/2022 9:12 PM [facility] Potassium 2.1(LL) 3.5 - 4.5 mmol/L 05/19/2022 9:12 PM [facility] Chloride 112(H) 98 - 107 mmol/L 05/19/2022 9:12 PM [facility] CO2 25 22 - 29 mmol/L 05/19/2022 9:12 PM [facility] Glucose 153(H) 70 - 115 mg/dL 05/19/2022 9:12 PM [facility] Calcium 10.2 8.4 - 10.2 mg/dL 05/19/2022 9:12 PM [facility] Anion Gap 11 8 - 18 05/19/2022 9:12 PM [facility] BUN/Creatinine Ratio 48(H) 7 - 23 05/19/2022 9:12 PM [facility] Osmolality Calculated 311(H) 270 - 300 mOsm/kg 05/19/2022 9:12 PM [facility] eGFR by CKD-EPI 88(L) >=90 mL/min/1.7 3 m2 05/19/2022 9:12 PM [facility] Blood BLOOD SPECIMEN / Unknown Venipuncture / Unknown 05/19/2022 8:25 PM [facility] 05/19/2022 8:29 PM [facility] Brayden Villeda MD LAB - CHEMISTRY ORDE RICHIE [address] [address], [place] [phone] * (ABNORMAL) GLUCOSE - POINT OF CARE (05/19/2022 8:24 PM [facility]) Glucose WB/POC 149(H) 70 - 115 mg/dL 05/20/2022 12:26 AM [facility] Specimen Type Venous 05/20/2022 12:26 AM [facility] Blood BLOOD SPECIMEN / Unknown 05/19/2022 8:24 PM [facility] 05/20/2022 12:26 AM [facility] Brayden Villeda MD LAB - POINT OF CARE ORDERABLES [address] [address], [place] [phone] * (ABNORMAL) GLUCOSE - POINT OF CARE (05/19/2022 5:18 PM [facility]) Glucose WB/POC 172(H) 70 - 115 mg/dL 05/19/2022 8:23 PM [facility] Specimen Type Cap Fingerstick 2022 8:23 PM [facility] Blood BLOOD SPECIMEN / Unknown 05/19/2022 5:18 PM [facility] 05/19/2022 8:23 PM [facility] Brayden Villeda MD LAB - POINT OF CARE ORDERABLES [facility] [address] [place] [address], [facility] [phone] * C DIFFICILE GDH AG + TOXIN A+B (05/19/2022 5:04 PM [facility]) Pathologist [facility] C difficile GDH antigen & toxin A/B NEGATIVE NEGATIVE 05/19/2022 9:06 PM [facility] MICROBIOLOGY Stool STOOL SPECIMEN / Unknown Collection / Unknown 05/19/2022 5:04 PM [facility] 05/19/2022 5:08 PM [facility] Narrative [facility] MICROBIOLOGY - 05/19/2022 9:06 PM [facility] Negative for toxigenic C. difficile Brayden Villeda MD LAB - MICROBIOLOGY O RDERABLES Performing Organization Address City/[facility]/ZIP Co de Phone Number [facility] MICROBIOLOGY [address] [place] [address], [facility] [phone] * CULTURE URINE (05/19/2022 3:37 PM [facility]) Pathologist [facility] Culture Urine 10,000-50,000 CFU/mL urogenital rebeka DRAKE 05/20/2022 10:27 PM [facility] MICROBIOLOGY Urine URINE SPECIMEN OBTAINED VIA [employer] URINARY CATHETER / Unknown Collection / Unknown 05/19/2022 3:37 PM [facility] 05/19/2022 4:05 PM [facility] Brayden Villeda MD LAB - MICROBIOLOGY O RDERABLES Performing Organization Address City/[facility]/ZIP Co de Phone Number [facility] MICROBIOLOGY [address] [place] [address] [phone] * (ABNORMAL) PROCALCITONIN LEVEL (05/19/2022 3:02 PM [facility]) PROCALCITONIN 0.30(H) <=0.10 ng/mL 05/19/2022 3:58 PM [facility] Blood BLOOD SPECIMEN / Unknown Venipuncture / Unknown 05/19/2022 3:02 PM [facility] 05/19/2022 3:10 PM [facility] Narrative [facility] - 05/19/2022 3:58 PM [facility] The change in procalcitonin (PCT) concentration over [...] Change in Procalcitonin Calculator is available at [email or web address] ?? If clinical picture has not improved and PCT remains high, reevaluate and consider treatment failure or other causes. Brayden Villeda MD LAB - CHEMISTRY [place] [facility] [address] [place] [address], [facility] [phone] * XR CHEST 1VW PORTABLE (05/19/2022 1:13 PM [facility]) Anatomical Region Laterality Modality Chest Radiographic Mireya ging 05/19/2022 1:40 PM [facility] Narrative 05/19/2022 2:57 PM [facility] EXAMINATION: XR CHEST 1VW PORTABLE HISTORY: K31.1: [...] identified. > Dictated by Gareth Peraza MD (radiology administrator). AGUILAR Nascimento MD have personally reviewed and interpreted [...] identified. > Dictated by Gareth Peraza MD (radiology administrator). AGUILAR Nascimento MD have personally reviewed and interpreted this examination/study. > Interpreting Provider: AGUILAR MEDINA MD on 05/19/2022 2:57 PM Brayden Villeda MD DIAGNOSTIC IMAGING O RDERABLES * XR ABDOMEN KUB PORTABLE (05/19/2022 1:12 PM [facility]) Anatomical Region Laterality Modality Abdomen Radiographic Mireya ging 05/19/2022 1:39 PM [facility] Impressions 05/19/2022 3:02 PM [facility] IMPRESSION: Moderate gaseous distention throughout the colon with folding of the colon in the mid abdomen/left upper quadrant. Findings can be seen in the setting of early cecal volvulus. If clinical suspicion for acute abdomen is present, recommend CT abdomen pelvis with contrast. Alternatively, this can be seen in the setting of ileus and/or obstruction. Report dictated by Gareth Peraza MD (radiology administrator) AGUILAR Nascimento MD have personally reviewed and interpreted this examination/study. > Interpreting Provider: AGUILAR MEDINA MD on 05/19/2022 3:02 PM Narrative 05/19/2022 3:02 PM [facility] EXAMINATION: XR ABDOMEN KUB PORTABLE HISTORY: K31.1: Gastric outlet obstruction COMPARISON: None. FINDINGS: Enteric tube coursing to stomach. Surgical clips are seen overlying the right upper quadrant abdomen. There is a diffuse gaseous colonic distention with bowel measuring up to 10.7 cm. There is unfolding of the proximal colon within the left upper quadrant. No pneumatosis or portal venous gas is noted. Free intraperitoneal air is not adequately assessed on supine radiographs. Procedure Note Aguilar Medina MD - 05/19/2022 EXAMINATION: XR ABDOMEN KUB PORTABLE HISTORY: K31.1: Gastric outlet obstruction COMPARISON: None. FINDINGS: Enteric tube coursing to stomach. Surgical clips are seen overlying the right upper quadrant abdomen. There is a diffuse gaseous colonic distention with bowel measuring up to 10.7 cm. There is unfolding of the proximal colon within the left upper quadrant. No pneumatosis or portal venous gas is noted. Free intraperitoneal air is not adequately assessed on supine radiographs. IMPRESSION: Moderate gaseous distention throughout the colon with folding of thecolon in the mid abdomen/left upper quadrant. Findings can be seen in thesetting of early cecal volvulus. If clinical suspicion for acute abdomen is present, recommend CT abdomen pelvis with contrast. Alternatively, thiscan be seen in the setting of ileus and/or obstruction. Report dictated by Gareth Peraza MD (radiology administrator) AGUILAR Nascimento MD have personally reviewed and interpreted this examination/study. > Interpreting Provider: AGUILAR MEDINA MD on 05/19/2022 3:02 PM Brayden Villeda MD DIAGNOSTIC IMAGING O RDERABLES * CULTURE BLOOD (05/19/2022 12:36 PM [facility]) Culture No growth day 5 DRAKE 05/24/2022 4:00 PM [facility] MICROBIOLOGY Blood PERIPHERAL BLOOD / Unknown Venipuncture / Unknown 05/19/2022 12:36 PM [facility] 05/19/2022 12:38 PM [facility] Brayden Villeda MD LAB - MICROBIOLOGY O HERNANDEZ [facility] MICROBIOLOGY [address] [place] [address], [facility] [phone] * CULTURE BLOOD (05/19/2022 12:18 PM [facility]) Culture No growth day 5 DRAKE 05/24/2022 4:00 PM [facility] MICROBIOLOGY Blood PERIPHERAL BLOOD / Unknown Venipuncture / Unknown 05/19/2022 12:18 PM [facility] 05/19/2022 12:55 PM [facility] Brayden Villeda MD LAB - MICROBIOLOGY O HERNANDEZ Performing Organization Address City/[facility]/ZIP Co de Phone Number [facility] MICROBIOLOGY [address] [place] [address], [facility] [phone] * (ABNORMAL) URINALYSIS REFLEX TO MICROSCOPIC NO CULTURE (05/19/2022 12:12 PM [facility]) Color UA Yellow Straw, Yellow 05/19/2022 1:[address] [facility] Clarity UA Turbid(A) Clear 05/19/2022 1:[address] [facility] Specific Orange UA 1.023 1.005 - 1.030 05/19/2022 1:11 PM [facility] pH UA 7.0 5.0 - 8.0 pH 05/19/2022 1:11 PM [facility] Protein UA Negative Negative 05/19/2022 1:11 PM [facility] Glucose UA 3+(A) Negative 05/19/2022 1:11 PM [facility] Ketone UA Trace(A) Negative 05/19/2022 1:11 PM [facility] Bilirubin UA Negative Negative 05/19/2022 1:11 PM [facility] Blood UA 1+(A) Negative 05/19/2022 1:11 PM [facility] Nitrite UA Positive(A) Negative 05/19/2022 1:11 PM [facility] Leukocyte Esterase 3+(A) Negative 05/19/2022 1:11 PM [facility] Urobilinogen UA Negative Negative mg/dL 05/19/2022 1:11 PM [facility] RBC UA 21-50(A) None Seen, 0-2, 3-5 /HPF 05/19/2022 1:11 PM [facility] WBC UA >100(A) None Seen, 0-5 /HPF 05/19/2022 1:11 PM [facility] Bacteria UA 2+(A) None /HPF 05/19/2022 1:11 PM [facility] Squamous Epithelial Cells UA 0-2 None Seen, 0-2, 3-5 /HPF 05/19/2022 1:11 PM [facility] Mucus UA 1+ /LPF 05/19/2022 1:11 PM [facility] Amorphous Crystals Moderate(A) None /HPF 05/19/2022 1:11 PM [facility] Urine URINE SPECIMEN OBTAINED VIA [employer] URINARY CATHETER / Unknown Collection / Unknown 05/19/2022 12:12 PM [facility] 05/19/2022 12:57 PM [facility] Narrative [facility] - 05/19/2022 1:11 PM [facility] Brayden Villeda MD LAB - URINALYSIS ORD ERABLES [facility] [address] [place] [address], [facility] [phone] * (ABNORMAL) GLUCOSE - POINT OF CARE (05/19/2022 12:11 PM [facility]) Glucose WB/POC 186(H) 70 - 115 mg/dL 05/19/2022 12:29 PM [facility] Specimen Type Cap Fingerstick 2022 12:29 PM [facility] Blood BLOOD SPECIMEN / Unknown 05/19/2022 12:11 PM [facility] 05/19/2022 12:29 PM [facility] Brayden Villeda MD LAB - POINT OF CARE ORDERABLES [facility] [address] [place] [address], [facility] [phone] * (ABNORMAL) DIFFERENTIAL MANUAL (05/19/2022 12:01 PM [facility]) WBC (corrected for NRBC) 31.8 10? 3 /uL 05/19/2022 1:17 PM [facility] Total Cell Count 100 05/19/19 23 1:17 PM [facility] Neutrophils Absolute Manual 24.17(H) 1.60 - 7.00 10? 3 /uL 05/19/2022 1:17 PM [facility] Comment:(BANDS+SEGS) x WBC = NEUT # (ANC) Lymphocyte Absolute Manual 1.91 1.10 - 3.90 10? 3 /uL 05/19/2022 1:17 PM [facility] Monocytes Absolute Manual 5.72(H) 0.26 - 1.07 10? 3 /uL 05/19/2022 1:17 PM [facility] Band % Manual 1 0 - 10 % 05/19/2022 1:17 PM [facility] Neutrophil % Manual 75(H) 35 - 70 % 05/19/2022 1:17 PM [facility] Lymphocyte % Manual 6(L) 20 - 43 % 05/19/2022 1:17 PM [facility] Monocytes % Manual 18(H) 5 - 13 % 05/19/2022 1:17 PM [facility] Platelet Estimate Adequate Adequate 05/19/2022 1:17 PM [facility] Polychromasia Occasional( A) None 05/19/2022 1:17 PM [facility] Tirso Cells Occasional( A) None 05/19/2022 1:17 PM [facility] Blood BLOOD SPECIMEN / Unknown Venipuncture / Unknown 05/19/2022 12:01 PM [facility] 05/19/2022 12:09 PM [facility] Brayden Villeda MD LAB - HEMATOLOGY ORD ERABLES Performing Organization Address City/[facility]/ZIP Co de Phone Number [address] [address], [place] [phone] * (ABNORMAL) PT-INR [facility] (05/19/2022 12:01 PM [facility]) PT 19.9(H) 12.1 - 14.8 Seconds 05/19/2022 12:31 PM [facility] INR 1.7 See Comment 05/19/2022 12:31 PM [facility] Comment:The suggested therap eutic range for standard coumadin (warfarin) therapy is an INR of 2.0-3.0. For high-risk patients (Mechanical Mitral Valve Prosthesis, etc.), the suggested prophylactic therapeutic range is an INR of 2.5-3.5. Blood BLOOD SPECIMEN / Unknown Venipuncture / Unknown 05/19/2022 12:01 PM [facility] 05/19/2022 12:09 PM [facility] Brayden Villeda MD LAB - COAGULATION OR DERABLES Performing Organization Address [facility]/ZIP Co de Phone Number [address] [address], [facility] [phone] * (ABNORMAL) PHOSPHORUS BLOOD (05/19/2022 12:01 PM [facility]) Phosphorus 2.0(L) 2.9 - 5.1 mg/dL 05/19/2022 12:39 PM [facility] Blood BLOOD SPECIMEN / Unknown Venipuncture / Unknown 05/19/2022 12:01 PM [facility] 05/19/2022 12:09 PM [facility] Brayden Villeda MD LAB - CHEMISTRY ORDE RABLES [address] [address], [place] [phone] * (ABNORMAL) LIPASE BLOOD (05/19/2022 12:01 PM [facility]) Pathologist [facility] Lipase 7(L) 8 - 78 U/L 05/19/2022 12:39 PM [facility] Blood BLOOD SPECIMEN / Unknown Venipuncture / Unknown 05/19/2022 12:01 PM [facility] 05/19/2022 12:09 PM [facility] Narrative [facility] - 05/19/2022 12:39 PM [facility] Lipase results from the [employer]her Alinity analyzer may not be comparable with other methodologies. Brayden Villeda MD LAB - CHEMISTRY [place] [address] [address], [facility] [phone] * LACTIC ACID BLOOD (05/19/2022 12:01 PM [facility]) [facility] Lactic Acid-Stat 1.0 <=2.0 mmol/L 05/19/2022 12:30 PM [facility] Blood BLOOD SPECIMEN / Unknown Venipuncture / Unknown 05/19/2022 12:01 PM [facility] 05/19/2022 12:09 PM [facility] Brayden Villeda MD LAB - CHEMISTRY [place] [address] [address], [facility] [phone] * (ABNORMAL) COMPREHENSIVE METABOLIC PANEL (05/19/2022 12:01 PM [facility]) Pathologist [facility] BUN 39(H) 7 - 26 mg/dL 05/19/2022 12:38 PM [facility] Creatinine 0.66 0.56 - 0.96 mg/dL 05/19/2022 12:38 PM [facility] Sodium 142 136 - 145 mmol/L 05/19/2022 12:38 PM [facility] Potassium 2.1(LL) 3.5 - 4.5 mmol/L 05/19/2022 12:38 PM [facility] Chloride 110(H) 98 - 107 mmol/L 05/19/2022 12:38 PM [facility] CO2 22 22 - 29 mmol/L 05/19/2022 12:38 PM [facility] Glucose 215(H) 70 - 115 mg/dL 05/19/2022 12:38 PM [facility] Calcium 10.5(H) 8.4 - 10.2 mg/dL 05/19/2022 12:38 PM [facility] Protein Total 5.8(L) 6.0 - 8.3 g/dL 05/19/2022 12:38 PM [facility] Albumin 2.8(L) 3.4 - 5.0 g/dL 05/19/2022 12:38 PM [facility] Bilirubin Total 0.3 0.2 - 1.2 mg/dL 05/19/2022 12:38 PM [facility] Alkaline Phosphatase 84 40 - 150 U/L 05/19/2022 12:38 PM [facility] ALT 14 5 - 55 U/L 05/19/2022 12:38 PM [facility] AST 14 5 - 34 U/L 05/19/2022 12:38 PM [facility] Anion Gap 12 8 - 18 05/19/2022 12:38 PM [facility] BUN/Creatinine Ratio >50(H) 7 - 23 05/19/2022 12:38 PM [facility] Osmolality Calculated 310(H) 270 - 300 mOsm/kg 05/19/2022 12:38 PM [facility] Albumin/Globulin Ratio 0.9(L) 1.1 - 2.3 05/19/2022 12:38 PM [facility] eGFR by CKD-EPI 87(L) >=90 mL/min/1.7 3 m2 05/19/2022 12:38 PM [facility] Blood BLOOD SPECIMEN / Unknown Venipuncture / Unknown 05/19/2022 12:01 PM [facility] 05/19/2022 12:09 PM [facility] Brayden Villeda MD LAB - CHEMISTRY [place] [facility] Organization Address City/State/ZIP Co de Phone Number [facility] [address] [place] [address] [phone] * (ABNORMAL) CBC W AUTO DIFFERENTIAL (05/19/2022 12:01 PM [facility]) WBC 31.8(H) 3.5 - 10.5 10? 3 /uL 05/19/2022 12:26 PM [facility] RBC 4.96 3.80 - 5.20 10? 6 /uL 05/19/2022 12:26 PM [facility] Hemoglobin 13.7 12.0 - 15.6 g/dL 05/19/2022 12:26 PM [facility] Hematocrit 40.7 35.0 - 45.0 % 05/19/2022 12:26 PM [facility] MCV 82.1 80.7 - 98.3 fL 05/19/2022 12:26 PM [facility] MCH 27.6 26.7 - 34.0 pg 05/19/2022 12:26 PM [facility] MCHC 33.7 30.8 - 35.9 g/dL 05/19/2022 12:26 PM [facility] RDW-SD 47.6 36.0 - 50.0 fL 05/19/2022 12:26 PM [facility] RDW-CV 16.4(H) 11.2 - 14.8 % 05/19/2022 12:26 PM [facility] Platelet Count 332 150 - 400 10? 3 /uL 05/19/2022 12:26 PM [facility] MPV 10.0 9.4 - 12.9 fL 05/19/2022 12:26 PM [facility] nRBC Absolute 0.00 0 10? 3 /uL 05/19/2022 12:26 PM [facility] nRBC Auto 0.0 0 /100 WBC 05/19/2022 12:26 PM [facility] Blood BLOOD SPECIMEN / Unknown Venipuncture / Unknown 05/19/2022 12:01 PM [facility] 05/19/2022 12:09 PM [facility] Brayden Villeda MD LAB - HEMATOLOGY ORD ERABLES [facility] [address] [place] [address] [phone] documented in this encounter Visit Diagnoses Diagnosis Urinary tract infection associated with indwelling urethral catheter (HCC)- Primary Gastric outlet obstruction (HCC) Acquired hypertrophic pyloric stenosis Encephalopathy Encephalopathy, unspecified Change in bowel habits Other symptoms involving digestive system Ileus (HCC) Paralytic ileus 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 Chronic indwelling Schmitt catheter Other postprocedural status Hypokalemia Hypopotassemia Chronic diastolic CHF (congestive heart failure) (HCC) Lymphedema of both lower extremities Atrial fibrillation, unspecified type (HCC) 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 Encephalopathy Encephalopathy, unspecified HTN (hypertension) Unspecified essential hypertension Type 2 diabetes mellitus without complication (HCC) 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 Chronic diastolic CHF (congestive heart failure) (CMS/HCC) Chronic idiopathic constipation Unspecified constipation Hyperparathyroidism (CMS/HCC) Atrial fibrillation (HCC) Atrial fibrillation Wheelchair bound Wheelchair dependence Chronic indwelling Schmitt catheter Other postprocedural status Ileus (HCC) Paralytic ileus Hypokalemia Hypopotassemia Hypernatremia Hyperosmolality and/or hypernatremia 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 documented in this encounter Administered Medications Inactive Administered Medications - up to 3 most recent administrations Medication Order MAR Action Action Date Dose Rate Site 0.9% NaCl injection 1-10 mL 1-10 mL, Intracatheter, PRN, Other, peripheral line flush, Starting on Fri05/19/22 at 1143, Until Magali 05/30/22 at 1236, Flush peripheral IV catheter with 1-10 mL of normal saline before and after medications and prn to clear blood from the line or to verify patency. 0.9% NaCl injection 3 mL 3 mL, Intracatheter, EVERY 8 HOURS, First dose on Fri05/19/22 at 1400, Until Discontinued, Flush peripheral IV catheter with 3 mL of normal saline every 8 hours. $ Given 05/30/2022 6:14 AM [facility] 3 mL $ Given 05/29/2022 8:13 PM [facility] 3 mL $ Given 05/29/2022 2:50 PM [facility] 3 mL acetaminophen (Tylenol) tablet 650 mg 650 mg, Oral, EVERY 6 HOURS PRN, Moderate Pain, Starting on Fri05/27/22 at 0445, Until Fri05/30/22 at 1236, Patient preference for lesser PRN pain meds may be honored when the patient requests a less strong medication, a lower dose, or a less intrusive route of administration when the lesser drug, dose and route have been ordered for the patient. This patient request must be documented in the MAR. $ Given 05/29/2022 6:09 PM [facility] 650 m g $ Given 05/27/2022 5:20 AM [facility] 650 mg amitriptyline (Elavil) tablet 25 mg 25 mg, Oral, AT BEDTIME, First dose (after last modification) on Fri05/29/22 at 2100, Until Discontinued $ Given 05/29/2022 8:14 PM [facility] 25 mg amitriptyline (Elavil) tablet 50 mg 50 mg, Oral, AT BEDTIME, First dose on Fri05/22/22 at 2100, Until Discontinued $ Given 05/28/2022 8:33 PM [facility] 50 mg $ Given 05/27/2022 8:49 PM [facility] 50 mg $ Given 05/26/2022 8:48 PM [facility] 50 mg apixaban (Eliquis) tablet 5 mg 5 mg, Oral, 2 TIMES DAILY, First dose on Fri05/22/22 at 1100, Until Discontinued $ Given 05/30/2022 8:50 AM [facility] 5 mg $ Given 05/29/2022 8:14 PM [facility] 5 mg $ Given 05/29/2022 8:41 AM [facility] 5 mg bisacodyl (Dulcolax) suppository 10 mg 10 mg, Rectal, DAILY PRN, Constipation, Starting on Fri05/27/22 at 0744, Until Fri05/30/22 at 1236, Remove suppository from foil packaging and insert into rectum. Retain for 15 minutes or as long as tolerated. cefepime (Maxipime) 2,000 mg in 0.9% NaCl IV 50 mL IVPB 2,000 mg (2 g), at 100 mL/hr, Intravenous, EVERY 8 HOURS, First dose on Fri05/23/22 at 0800, Until Discontinued, Indication for anti-infective therapy: Suspected infection, Site of anti-infective therapy: Urine/Genitourinary $ New Bag/Syringe 05/23/2022 9:04 AM [facility] 2,000 mg 100 mL/hr cefTRIAXone (Rocephin) 2,000 mg in 0.9% NaCl IV 50 mL IVPB 2,000 mg (2 g), at 100 mL/hr, Intravenous, EVERY 24 HOURS, 2 doses, First dose on Fri05/22/22 at 1100, Last dose on Fri05/23/22 at 1100, Ceftriaxone can cause precipitation when administered with calcium-containing fluids, including LR. Flush lines with a compatible fluid, such as D5W or NS before and after ceftriaxone dose. Admin through separate lumens is acceptable. , Indication for anti-infective therapy: Documented infection, Site of anti-infective therapy: Urine/Genitourinary $ New Bag/Syringe 05/22/2022 11:07 AM [facility] 2,000 mg 100 mL/hr dextrose 10 % IV bolus 12.5 g, at 468.75 mL/hr, Intravenous, PRN, Other, Bedside Glucose less than 70 mg/dL -If NOT able to eat and/or NPO and with IV Access, Starting on Fri05/19/22 at 1147, Until Magali 05/30/22 at 1236, If NOT able to eat and/or NPO and with IV Access: For Bedside Glucose 54-69 mg/dL give 12.5 g Dextrose IV STAT For Bedside Glucose LESS than 54 mg/dl verify with a second Bedside Glucose (from a different site) and give 25 g Dextrose IV STAT Re-check and Re-treat blood glucose EVERY , 10-25 minutes until blood glucose GREATER than or equal to 80 mg/dl. NOTIFY PROVIDER OF HYPOGLYCEMIC EVENT. dextrose 10 % IV bolus 25 g, at 937.5 mL/hr, Intravenous, PRN, Other, Bedside Glucose less than 70 mg/dL -If NOT able to eat and/or NPO and with IV Access, Starting on Fri05/19/22 at 1147, Until Magali 05/30/22 at 1236, If NOT able to eat and/or NPO and with IV Access: For Bedside Glucose 54-69 mg/dL - give 12.5 g Dextrose IV STAT For Bedside Glucose LESS than 54 mg/dl - verify with a second Bedside Glucose (from a different site) and give 25 g Dextrose IV STAT Re-check and Re-treat blood glucose EVERY - 10-25 minutes until blood glucose GREATER than or equal to 80 mg/dl. - If repeat bedside glucose 54-79 give 12.5 g Dextrose IV STAT NOTIFY PROVIDER OF HYPOGLYCEMIC EVENT. dextrose 5 % and 0.45 % NaCl with KCl 20 mEq infusion at 75 mL/hr, Intravenous, CONTINUOUS, Starting on Fri05/21/22 at 0500, Until Fri05/22/22 at 1026 $ New Bag/Syringe 05/21/2022 8:09 PM [facility] 75 mL/hr $ New Bag/Syringe 05/21/2022 6:34 AM [facility] 75 mL/ hr dextrose 5 % and 0.45% NaCl infusion at 75 mL/hr, Intravenous, CONTINUOUS, Starting on Fri05/20/22 at 0500, Until Fri05/20/22 at 1438 Current Rate 05/20/2022 6:29 AM [facility] 75 mL/hr $ New Bag/Syringe 05/20/2022 4:57 AM [facility] 75 mL/ hr dextrose 5 % infusion at 75 mL/hr, Intravenous, CONTINUOUS, Starting on Fri05/20/22 at 1515, Until Fri05/21/22 at 0420 Current Rate 05/21/2022 1:30 AM [facility] 75 mL/hr Current Rate 05/21/2022 12:00 AM [facility] 75 mL/hr Current Rate 05/20/2022 3:05 PM [facility] 75 mL/hr enoxaparin (Lovenox) injection 40 mg 40 mg, Subcutaneous, EVERY 24 HOURS, First dose on Fri05/19/22 at 1515, Until Discontinued, (for prefilled syringes) do not expel air bubble from the syringe prior to the injection Remind Patient to not rub injection site. Could cause hematoma. $ Given 05/19/2022 3:02 PM [facility] 40 mg Abdominal Tissue flecainide (Tambocor) tablet 50 mg 50 mg, Oral, 2 TIMES DAILY, First dose on Fri05/24/22 at 0900, Until Discontinued $ Given 05/30/2022 8:50 AM [facility] 50 mg $ Given 05/29/2022 8:14 PM [facility] 50 mg $ Given 05/29/2022 8:41 AM [facility] 50 mg glucagon (Glucagen) injection 1 mg 1 mg, Subcutaneous, PRN, Bedside Glucose less than 70 mg/dL - If NOT able to eat and/or NPO and withOUT IV Access, Starting on Fri05/19/22 at 1147, Until Fri05/30/22 at 1236, If NOT able to eat and/or NPO and NO IV Access: For Bedside glucose 54-69 mg/dL - Give 1 mg SQ For Bedside Glucose LESS than 54 mg/dl - verify with a second bedside glucose (from a different site) - Give 1 mg SQ Re-check and Re-treat blood glucose EVERY 10-25 minutes until blood glucose GREATER than or equal to 80 mg/dl. NOTIFY PROVIDER OF HYPOGLYCEMIC EVENT. Reconstitute vial with 1 mL of sterile water for injection for a final concentration of 1 mg/mL; shake vial gently; use immediately and discard unused portion glucose (Diabetic Use) (Dex4 Glucose) oral liquid Oral, PRN, Other, Bedside Glucose less than 70 mg/dL -If able to eat and does not have swallowing difficulties, Starting on 05/19/22 at 1147, Until Magali 05/30/22 at 1236, If able to eat and can swallow thin liquids: For Bedside Glucose 54 - 69 mg/dL Give 15 grams of oral carbohydrates - 1 glucose liquid (see MAR) If patient refuses glucose liquid, then offer: - 4 ounces of fruit juice OR - 4 ounces non-diet soda OR - 8 ounces of fat-free milk For Bedside Glucose LESS than 54 mg/dL - verify with a second Bedside Glucose (from a different site) - If pt is symptomatic, do not delay treatment - If accuracy of the POC glucose is in question, confirm glucose with a STAT laboratory test. Give 30 grams of oral carbohydrates - 2 glucose liquid (see MAR) If patient refuses glucose liquid, then offer: - 8 ounces of fruit juice OR - 8 ounces non-diet soda OR - 16 ounces of fat-free milk Re-check and Re-treat blood glucose EVERY 10-25 minutes until blood glucose GREATER than or equal to 80 mg/dl. - If on recheck, bedside glucose 54-79 mg/dL - Give 15 grams of oral carbohydrates (see above for choices) NOTIFY PROVIDER OF HYPOGLYCEMIC EVENT. glucose (Diabetic Use) oral gel Oral, PRN, Other, Bedside Glucose less than 70 mg/dL -If able to eat and does not have swallowing difficulties, Starting on 05/19/22 at 1147, Until [place] 05/30/22 at 1236, If able to eat and is better able to swallow gel: For Bedside Glucose 54 - 69 mg/dL Give 15 grams of oral carbohydrates - 1 glucose gel (see MAR) If patient refuses glucose gel, then offer: - 4 ounces of fruit juice OR - 4 ounces non-diet soda OR - 8 ounces of fat-free milk For Bedside Glucose LESS than 54 mg/dL verify with a second Bedside Glucose (from a different site) - If pt is symptomatic, do not delay treatment - If accuracy of the POC glucose is in question, confirm glucose with a STAT laboratory test Give 30 grams of oral carbohydrates - 2 glucose gels (see MAR) If patient refuses glucose gel, then offer: - 8 ounces of fruit juice OR - 8 ounces non-diet soda OR - 16 ounces of fat-free milk Re-check and Re-treat blood glucose EVERY 10-25 minutes until blood glucose GREATER than or equal to 80 mg/dl. - If on recheck, bedside glucose 54-79 mg/dL - Give 15 grams of oral carbohydrates (see above for choices) NOTIFY PROVIDER OF HYPOGLYCEMIC EVENT. glucose chew tablet 4 tablet 4 tablet (16 g), Oral, PRN, Other, Bedside Glucose less than 70 mg/dL -If able to eat and does not have swallowing difficulties, Starting on 05/19/22 at 1147, Until [place] 05/30/22 at 1236, If able to eat and does not have swallowing difficulties: For Bedside Glucose 54 - 69 mg/dL Give 16 grams of oral carbohydrates - 4 glucose tabs (see MAR) If patient refuses glucose tabs, then offer: - 4 ounces of fruit juice OR - 4 ounces non-diet soda OR - 8 ounces of fat-free milk For Bedside Glucose LESS than 54 mg/dL - verify with a second Bedside Glucose (from a different site) - If pt is symptomatic, do not delay treatment - If accuracy of the POC glucose is in question, confirm glucose with a STAT laboratory test. Give 32 grams of oral carbohydrates - 8 glucose tabs (see MAR) If patient refuses glucose gel, then offer: - 8 ounces of fruit juice OR - 8 ounces non-diet soda OR - 16 ounces of fat-free milk Re-check and Re-treat blood glucose EVERY 10-25 minutes until blood glucose GREATER than or equal to 80 mg/dl. - If on recheck, bedside glucose 54-79 mg/dL - Give 15 grams of oral carbohydrates (see above for choices). NOTIFY PROVIDER OF HYPOGLYCEMIC EVENT. heparin 25,000 units in 250 mL (100 units/mL) in 0.45% NaCl 400-2,100 Units/hr (4-21 mL/hr), Intravenous, CONTINUOUS, Starting on Fri05/20/22 at 1015, Until Fri05/22/22 at 1023, Start after cleared by MICU post-CT Initial rate 1000 units/hr APTT(sec) RATE CHANGE less than 59: increase by 300 units/hr, 59-68.9: increase by 150 units/hr, 69-110: NO CHANGE (therapeutic range), 110.1-121: decrease by 100 units/hr, 121.1-141: decrease by 150 units/hr, greater than 141: Hold heparin for 1 hour and reduce rate by 250 units/hr Draw aPTT 6 hours after infusion is initiated. Repeat aPTT 6 hours after any rate change or 6 hours after heparin is restarted. After two consecutive aPTTs drawn 6 hours apart are therapeutic, order aPTT to be drawn the following a.m. and daily and adjust per nomogram. Notify physician if 2 consecutive aPTT's are greater than 140 If heparin is interrupted for any reason other than described in the table, notify the physician. If heparin is to be restarted after an interruption of more than 4 hours, give 3000 units IV bolus and resume infusion at same rate as before the interruption. $ New Bag/Syringe 05/21/2022 10:27 PM [facility] 1,150 Units/hr 11.5 mL/hr $ New Bag/Syringe 05/21/2022 2:34 PM [facility] 1,300 Units/hr 13 mL/hr Restarted 05/21/2022 2:58 AM [facility] 1,300 Units/hr 13 mL/hr insulin lispro (HumaLOG;ADMelog) 100 UNIT/ML pen 0-6 Units 0-6 Units, Subcutaneous, EVERY 4 HOURS, First dose on Fri05/19/22 at 1600, Until Discontinued, DO NOT HOLD CORRECTION BOLUS EVEN IF PATIENT IS NPO. BEDSIDE GLUCOSE MUST BE PERFORMED AND DOCUMENTED WITHIN 30-60 MINUTES OF CORRECTION INSULIN ADMINISTRATION. BG (mg/dL) LESS than 70 = follow Hypoglycemic guidelines 150-200 = give 1 unit 201-250 = give 2 units 251-300 = give 3 units 301-350 = give 4 units 351-400 = give 5 units and notify physician GREATER than 400 = give 6 units and notify physician $ Given 05/30/2022 4:19 AM [facility] 1 Units Abd Left Lower Quadrant $ Given 05/30/2022 12:21 AM [facility] 1 Units A bd Left Upper Quadrant $ Given 05/29/2022 8:31 PM [facility] 1 Units Ab d Left Lower Quadrant lactated ringers infusion at 75 mL/hr, Intravenous, CONTINUOUS, Starting on Fri05/19/22 at 1215, Until Fri05/20/22 at 0430 Current Rate 05/19/2022 12:06 PM [facility] 75 mL/hr $ New Bag/Syringe 05/19/2022 12:06 PM [facility] 75 mL /hr lactated ringers IV bolus 1,000 mL, at 1,935.48 mL/hr, Administer over 31 Minutes, ONCE, 1 dose, On Fri05/19/22 at 1300 $ New Bag/Syringe 05/19/2022 12:53 PM [facility] 1,000 mL 1935.48 mL/hr levothyroxine (Synthroid) tablet 150 mcg 150 mcg, Oral, EVERY FRIDAY, First dose on Fri05/26/22 at 0600, Until Discontinued, Take in the morning on an empty stomach. Do not give within 4 hours of antacids, iron or calcium supplements. $ Given 05/26/2022 7:41 AM [facility] 150 mcg levothyroxine (Synthroid) tablet 75 mcg 75 mcg, Oral, EVERY FRI, , FRI, , FRI, AND FRI, First dose on Fri05/22/22 at 1100, Until Discontinued, Take in the morning on an empty stomach. Do not give within 4 hours of antacids, iron or calcium supplements. $ Given 05/30/2022 6:13 AM [facility] 75 mcg $ Given 05/29/2022 5:07 AM [facility] 75 mcg $ Given 05/28/2022 6:15 AM [facility] 75 mcg linaCLOtide (Linzess) capsule 290 mcg 290 mcg, Oral, DAILY BEFORE BREAKFAST, First dose on Fri05/24/22 at 0700, Until Discontinued, Take on an empty stomach at least 30 minutes prior to first meal of the day. $ Given 05/30/2022 7:20 AM [facility] 290 mcg $ Given 05/29/2022 6:18 AM [facility] 290 mcg $ Given 05/28/2022 6:15 AM [facility] 290 mcg meropenem (Merrem) 1,000 mg in 0.9% NaCl IV 50 mL IVPB 1,000 mg, at 100 mL/hr, Intravenous, EVERY 8 HOURS, 20 doses, First dose (after last modification) on [place] 05/23/22 at 1130, Last dose on 05/29/22 at 2200, Indication for restricted (Tier 2) anti-infective therapy (empiric or definitive treatment): NH/LTAC admission - severe sepsis/septic shock $ New Bag/Syringe 05/30/2022 12:20 AM [facility] 1,000 mg 100 mL/hr $ New Bag/Syringe 05/29/2022 2:50 PM [facility] 1,000 mg 100 mL /hr $ New Bag/Syringe 05/29/2022 5:11 AM [facility] 1,000 mg 100 mL /hr pantoprazole (Protonix) injection 40 mg 40 mg, Intravenous, DAILY, First dose on Fri05/19/22 at 1430, Until Discontinued, For every 40 mg of pantoprazole mix with 10 mL Normal Saline (final concentration = 4 mg/mL). Inject SLOWLY over 2 min. $ Given 05/23/2022 8:51 AM [facility] 40 mg $ Given 05/22/2022 8:59 AM [facility] 40 mg $ Given 05/21/2022 8:57 AM [facility] 40 mg pantoprazole EC (Protonix) tablet 40 mg 40 mg, Oral, DAILY, First dose on Fri05/24/22 at 0900, Until Discontinued, Do not crush, chew, or cut in half. $ Given 05/30/2022 8:50 AM [facility] 40 mg $ Given 05/29/2022 8:41 AM [facility] 40 mg $ Given 05/28/2022 8:50 AM [facility] 40 mg piperacillin - tazobactam (Zosyn) 3.375 g in 0.9% NaCl IV 55 mL IVPB 3.375 g, at 110 mL/hr, Intravenous, ONCE, 1 dose, On Fri05/19/22 at 1200, Infuse only initial dose of piperacillin-tazobactam over 30 min. Subsequent doses start 6 hours after initial dose and infused over 4 hours., Indication for anti-infective therapy: Suspected infection, Site of anti-infective therapy: Intra-abdominal $ New Bag/Syringe 05/19/2022 12:47 PM [facility] 3.375 g 110 mL/hr piperacillin - tazobactam (Zosyn) 3.375 g in 0.9% NaCl IV 55 mL IVPB 3.375 g, at 13.75 mL/hr, Intravenous, EVERY 8 HOURS, First dose on Fri05/19/22 at 1800, Until Discontinued, Indication for anti-infective therapy: Suspected infection, Site of anti-infective therapy: Intra-abdominal $ New Bag/Syringe 05/22/2022 9:04 AM [facility] 3.375 g 13.75 mL/hr $ New Bag/Syringe 05/22/2022 2:25 AM [facility] 3.375 g 13.75 mL/hr $ New Bag/Syringe 05/21/2022 6:13 PM [facility] 3.375 g 13.75 mL/hr polyethylene glycol (Golytely) solution 2,000 mL 2,000 mL (2 L), Oral, ONCE, 1 dose, On Fri05/22/22 at 1400, Mix with water or Gatorade. Keep refrigerated when possible. $ Given 05/22/2022 3:22 PM [facility] 2,000 mL polyethylene glycol 3350 (Miralax) packet 17 g 17 g, Oral, DAILY, First dose on Fri05/21/22 at 0830, Until Discontinued, Mix in 8 ounces of water, juice, soda, coffee or tea prior to administration $ Given 05/30/2022 8:51 AM [facility] 17 g $ Given 05/29/2022 8:41 AM [facility] 17 g $ Given 05/28/2022 8:50 AM [facility] 17 g potassium chloride 40 mEq in 270 mL bolus 40 mEq, at 67.5 mL/hr, Administer over 4 Hours, Intravenous, ONCE, 1 dose, On Fri05/19/22 at 2145 Restarted 05/20/2022 3:25 AM [facility] 67. 5 mL/hr $ New Bag/Syringe 05/19/2022 10:30 PM [facility] 40 mEq 67.5 mL/hr potassium chloride 40 mEq in 270 mL bolus 40 mEq, at 67.5 mL/hr, Administer over 4 Hours, Intravenous, ONCE, 1 dose, On Fri05/20/22 at 0445 Current Rate 05/20/2022 6:29 AM [facility] 67. 5 mL/hr $ New Bag/Syringe 05/20/2022 5:14 AM [facility] 40 mEq 67.5 m L/hr potassium chloride 40 mEq in 270 mL bolus 40 mEq, at 67.5 mL/hr, Administer over 4 Hours, Intravenous, ONCE, 1 dose, On Fri05/20/22 at 0945 $ New Bag/Syringe 05/20/2022 9:42 AM [facility] 40 mEq 67.5 mL/hr potassium chloride 40 mEq in 270 mL bolus 40 mEq, at 67.5 mL/hr, Administer over 4 Hours, Intravenous, ONCE, 1 dose, On Fri05/20/22 at 2315 Current Rate 05/21/2022 1:30 AM [facility] 67.5 mL/hr $ New Bag/Syringe 05/21/2022 12:07 AM [facility] 40 mEq 67.5 mL/hr potassium chloride 40 mEq in 270 mL bolus 40 mEq, at 67.5 mL/hr, Administer over 4 Hours, Intravenous, ONCE, 1 dose, On Fri05/21/22 at 0445 $ New Bag/Syringe 05/21/2022 5:34 AM [facility] 40 mEq 67.5 mL/hr potassium phosphate 30 mmol in d5w 260 mL bolus premix 30 mmol, at 43.33 mL/hr, Administer over 6 Hours, Intravenous, ONCE, 1 dose, On Fri05/19/22 at 1300, 3 mmol phosphate = 4.4 mEq potassium $ New Bag/Syringe 05/19/2022 1:40 PM [facility] 30 mmol 43.33 mL/hr potassium phosphate 30 mmol in d5w 260 mL bolus premix 30 mmol, at 43.33 mL/hr, Administer over 6 Hours, Intravenous, ONCE, 1 dose, On Fri05/21/22 at 0945, 3 mmol phosphate = 4.4 mEq potassium $ New Bag/Syringe 05/21/2022 10:10 AM [facility] 30 mmol 43.33 mL/hr rosuvastatin (Crestor) tablet 10 mg 10 mg, Oral, AT BEDTIME, First dose on Fri05/22/22 at 2100, Until Discontinued $ Given 05/29/2022 8:14 PM [facility] 10 mg $ Given 05/28/2022 8:34 PM [facility] 10 mg $ Given 05/27/2022 8:49 PM [facility] 10 mg senna-docusate (Senokot-S) tablet 1 tablet 1 tablet, Oral, DAILY, First dose on Fri05/21/22 at 0830, Until Discontinued $ Given 05/30/2022 8:50 AM [facility] 1 tablet $ Given 05/29/2022 8:41 AM [facility] 1 tablet $ Given 05/28/2022 8:50 AM [facility] 1 tablet sodium - potassium phosphates (K Phos Neutral) tablet 1 tablet 1 tablet, Oral, 2 TIMES DAILY, First dose on Fri05/28/22 at 2100, Until Discontinued, Contains Phos 8 mmol, K+ 1.1 mEq, Na 13 mEq per tablet $ Given 05/30/2022 8:50 AM [facility] 1 tablet $ Given 05/29/2022 8:14 PM [facility] 1 tablet $ Given 05/29/2022 8:41 AM [facility] 1 tablet sodium phosphate 40 mmol in dextrose 5 % 263.3 mL bolus 40 mmol, at 43.88 mL/hr, Administer over 6 Hours, Intravenous, ONCE, 1 dose, On Fri05/22/22 at 1400 $ New Bag/Syringe 05/22/2022 1:27 PM [facility] 40 mmol 43.88 mL/hr trospium (Sanctura) tablet 20 mg 20 mg, Oral, 2 TIMES DAILY, First dose on Fri05/22/22 at 2100, Until Discontinued, Take on empty stomach - 1 hour before meals or 2 hours after $ Given 05/30/2022 8:50 AM [facility] 20 mg $ Given 05/29/2022 8:14 PM [facility] 20 mg $ Given 05/29/2022 8:41 AM [facility] 20 mg hrqat-ehf-ejndyppv (HOG) enema 360 mL 360 mL, Rectal, ONCE, 1 dose, On Fri05/19/22 at 1630 $ Given 05/19/2022 4:39 PM [facility] 360 mL cyhps-fpk-kpmyegkn (HOG) enema 360 mL 360 mL, Rectal, ONCE, 1 dose, On Fri05/20/22 at 0945 $ Given 05/20/2022 10:13 AM [facility] 360 mL cpzmi-oqf-asgrkhpc (HOG) enema 360 mL 360 mL, Rectal, EVERY 6 HOURS, 1 dose, First dose (after last modification) on Fri05/20/22 at 1700 $ Given 05/20/2022 4:18 PM [facility] 360 mL svdat-yld-gysalsyg (HOG) enema 360 mL 360 mL, Rectal, ONCE, 1 dose, On Fri05/22/22 at 1000, Shake well. For rectal administration. $ Given 05/22/2022 9:07 AM [facility] 360 mL drrsd-nql-llyuovwp (HOG) enema 360 mL 360 mL, Rectal, ONCE, 1 dose, On Fri05/22/22 at 1600, Shake well. For rectal administration. $ Given 05/22/2022 3:22 PM [facility] 360 mL yuhul-rsw-wkkifvde (HOG) enema 360 mL 360 mL, Rectal, ONCE, 1 dose, On [place] 05/23/22 at 0845 $ Given 05/23/2022 10:50 AM [facility] 360 mL tydsk-dmb-sluqdzab (HOG) enema 360 mL 360 mL, Rectal, ONCE, 1 dose, On 05/24/22 at 1000 $ Given 05/24/2022 5:02 PM [facility] 360 mL xajar-zbk-xnmcmtcz (HOG) enema 360 mL 360 mL, Rectal, ONCE, 1 dose, On 05/25/22 at 0845 $ Given 05/25/2022 8:54 AM [facility] 360 mL lfdvh-ubp-thxluvha (HOG) enema 360 mL 360 mL, Rectal, ONCE, 1 dose, On 05/26/22 at 1645 $ Given 05/26/2022 5:01 PM [facility] 360 mL gebzy-iaj-blsmvjro (HOG) enema 360 mL 360 mL, Rectal, ONCE, 1 dose, On 05/27/22 at 1000, Shake well. For rectal administration. $ Given 05/27/2022 11:58 AM [facility] 360 mL documented in this encounter Active and Recently Administered Medications Times are shown in [facility]. Scheduled Medication Order 05/28/2022 05/29/2022 05/30/2022 0.9% NaCl injection 3 mL(Linked Group 1) 3 mL, Intracatheter, EVERY 8 HOURS, First dose on 05/19/22 at 1400, Until Discontinued, Flush peripheral IV catheter with 3 mL of normal saline every 8 hours. 0614 ($ Given - Provider: Senthil Hoffman RN)1322 ($ Given - Provider: Jillian Dolan RN)2208 ($ Given - Provider: Senthil Hoffman RN) 0507 ($ Given - Provider: Senthil Hoffman RN)1450 ($ Given - Provider: Shima Presley RN)2012 ($ Given - Provider: Astrid Reveles RN) 0614 ($ Given - Provider: Astrid Reveles RN) amitriptyline (Elavil) tablet 25 mg 25 mg, Oral, AT BEDTIME, First dose (after last modification) on Fri05/29/22 at 2100, Until Discontinued 2013 ($ Given - Provider: Astrid Reveles RN) amitriptyline (Elavil) tablet 50 mg (CANCELED) 50 mg, Oral, AT BEDTIME, First dose on Fri05/22/22 at 2100, Until Discontinued 2032 ($ Given - Provider: Senthil Hoffman RN) apixaban (Eliquis) tablet 5 mg 5 mg, Oral, 2 TIMES DAILY, First dose on Fri05/22/22 at 1100, Until Discontinued 0850 ($ Given - Provider: Jillian Dolan RN)2033 ($ Given - Provider: Senthil Hoffman RN) 0841 ($ Given - Provider: Shima Presley RN)2013 ($ Given - Provider: Astrid Reveles RN) 0850 ($ Given - Provider: Iliana Dan, DES) flecainide (Tambocor) tablet 50 mg 50 mg, Oral, 2 TIMES DAILY, First dose on Fri05/24/22 at 0900, Until Discontinued 0850 ($ Given - Provider: Jillian Dolan RN)2033 ($ Given - Provider: Senthil Hoffman RN) 0841 ($ Given - Provider: Shima Presley RN)2013 ($ Given - Provider: Astrid Reveles RN) 0850 ($ Given - Provider: Iliana Dan RN) insulin lispro (HumaLOG;ADMelog) 100 UNIT/ML pen 0-6 Units 0-6 Units, Subcutaneous, EVERY 4 HOURS, First dose on Fri05/19/22 at 1600, Until Discontinued, DO NOT HOLD CORRECTION BOLUS EVEN IF PATIENT IS NPO. BEDSIDE GLUCOSE MUST BE PERFORMED AND DOCUMENTED WITHIN 30-60 MINUTES OF CORRECTION INSULIN ADMINISTRATION. BG (mg/dL) LESS than 70 = follow Hypoglycemic guidelines 150-200 = give 1 unit 201-250 = give 2 units 251-300 = give 3 units 301-350 = give 4 units 351-400 = give 5 units and notify physician GREATER than 400 = give 6 units and notify physician 0001 (Not Administered - Provider: Senthil Hoffman RN - Reason: Per Administration Instructions - Comment: BS 136)0616 (Not Administered - Provider: Senthil Hoffman RN - Reason: Refused-Patient)0814 (Not Administered - Provider: Jillian Dolan RN - Reason: Per Administration Instructions)1117 ($ Given - Provider: Jillian Dolan RN)1546 (Not Administered - Provider: Jillian Dolan RN - Reason: Per Administration Instructions)2034 ($ Given - Provider: Senthil Hoffman RN - Comment: BS 179) 0140 ($ Given - Provider: Senthil Hoffman RN - Comment: BS 161)0521 ($ Given - Provider: Senthil Hoffman RN - Comment: bs 161)0906 (Not Administered - Provider: Shima Presley RN - Reason: Per Administration Instructions)1254 ($ Given - Provider: Shima Presley RN)1716 (Not Administered - Provider: Shima Presley RN - Reason: Per Administration Instructions)2031 ($ Given - Provider: Astrid Reveles RN) 0021 ($ Given - Provider: Astrid Reveles RN)0419 ($ Given - Provider: Astrid Reveles RN)0839 (Not Administered - Provider: Iliana Dan RN - Reason: See Comments - Comment: BS 149) levothyroxine (Synthroid) tablet 150 mcg 150 mcg, Oral, EVERY FRIDAY, First dose on Fri05/26/22 at 0600, Until Discontinued, Take in the morning on an empty stomach. Do not give within 4 hours of antacids, iron or calcium supplements. levothyroxine (Synthroid) tablet 75 mcg 75 mcg, Oral, EVERY FRI, , FRI, , FRI, AND FRI, First dose on Fri05/22/22 at 1100, Until Discontinued, Take in the morning on an empty stomach. Do not give within 4 hours of antacids, iron or calcium supplements. 0615 ($ Given - Provider: Senthil Hoffman RN) 0507 ($ Given - Provider: Senthil Hoffman RN) 0613 ($ Given - Provider: Astrid Reveles RN) linaCLOtide (Linzess) capsule 290 mcg 290 mcg, Oral, DAILY BEFORE BREAKFAST, First dose on Fri05/24/22 at 0700, Until Discontinued, Take on an empty stomach at least 30 minutes prior to first meal of the day. 0615 ($ Given - Provider: Senthil Hoffman RN) 0618 ($ Given - Provider: Senthil Hoffman RN) 0720 ($ Given - Provider: Astrid Reveles, DES) meropenem (Merrem) 1,000 mg in 0.9% NaCl IV 50 mL IVPB (COMPLETED) 1,000 mg, at 100 mL/hr, Intravenous, EVERY 8 HOURS, 20 doses, First dose (after last modification) on [place] 05/23/22 at 1130, Last dose on Fri05/29/22 at 2200, Indication for restricted (Tier 2) anti-infective therapy (empiric or definitive treatment): [place]/LTAC admission - severe sepsis/septic shock 0620 ($ New Bag/Syringe - Provider: Senthil Hoffman RN)0650 (Due: Stopped - Provider: Senthil Hoffman RN)1325 ($ New Bag/Syringe - Provider: Jillian Dolan RN)1356 (Stopped - Provider: Jillian Dolan RN)2209 ($ New Bag/Syringe - Provider: Senthil Hoffman RN)2240 (Stopped - Provider: Senthil Hoffman RN) 0511 ($ New Bag/Syringe - Provider: Senthil Hoffman RN)0543 (Stopped - Provider: Senthil Hoffman RN)1450 ($ New Bag/Syringe - Provider: Shima Presley, DES)1520 (Stopped - Provider: Shima Presley RN) 0020 ($ New Bag/Syringe - Provider: Astrid Reveles, DES)0051 (Stopped - Provider: Astrid Reveles, DES) pantoprazole EC (Protonix) tablet 40 mg 40 mg, Oral, DAILY, First dose on Fri05/24/22 at 0900, Until Discontinued, Do not crush, chew, or cut in half. 0850 ($ Given - Provider: Jillian Dolan RN) 0841 ($ Given - Provider: Shima Presley RN) 0850 ($ Given - Provider: Iliana Dan RN) polyethylene glycol 3350 (Miralax) packet 17 g 17 g, Oral, DAILY, First dose on Fri05/21/22 at 0830, Until Discontinued, Mix in 8 ounces of water, juice, soda, coffee or tea prior to administration 0850 ($ Given - Provider: Jillian Dolan RN) 0841 ($ Given - Provider: Shima Presley RN) 0851 ($ Given - Provider: Iliana Dan, DES) rosuvastatin (Crestor) tablet 10 mg 10 mg, Oral, AT BEDTIME, First dose on Fri05/22/22 at 2100, Until Discontinued 2033 ($ Given - Provider: Senthil Hoffman RN) 2013 ($ Given - Provider: Astrid Reveles, DES) senna-docusate (Senokot-S) tablet 1 tablet 1 tablet, Oral, DAILY, First dose on Fri05/21/22 at 0830, Until Discontinued 0850 ($ Given - Provider: Jillian Dolan RN) 0841 ($ Given - Provider: Shima Presley RN) 0850 ($ Given - Provider: Iliana Dan RN) sodium - potassium phosphates (K Phos Neutral) tablet 1 tablet 1 tablet, Oral, 2 TIMES DAILY, First dose on Fri05/28/22 at 2100, Until Discontinued, Contains Phos 8 mmol, K+ 1.1 mEq, Na 13 mEq per tablet 2032 ($ Given - Provider: Senthil Hoffman RN) 0841 ($ Given - Provider: Shima Presley, DES)2013 ($ Given - Provider: Astrid Reveles, DES) 0850 ($ Given - Provider: Iliana Dan, DES) trospium (Sanctura) tablet 20 mg 20 mg, Oral, 2 TIMES DAILY, First dose on Fri05/22/22 at 2100, Until Discontinued, Take on empty stomach - 1 hour before meals or 2 hours after 0850 ($ Given - Provider: Jillian Dolan RN)2033 ($ Given - Provider: Senthil Hoffman RN) 0841 ($ Given - Provider: Shima Presley RN)2013 ($ Given - Provider: Astrid Reveles, DES) 0850 ($ Given - Provider: Iliana Dan, DES) PRN Medication Order 05/28/2022 05/29/2022 05/30/2022 0.9% NaCl injection 1-10 mL(Linked Group 1) 1-10 mL, Intracatheter, PRN, Other, peripheral line flush, Starting on Fri05/19/22 at 1143, Until Fri05/30/22 at 1236, Flush peripheral IV catheter with 1-10 mL of normal saline before and after medications and prn to clear blood from the line or to verify patency. acetaminophen (Tylenol) tablet 650 mg 650 mg, Oral, EVERY 6 HOURS PRN, Moderate Pain, Starting on Fri05/27/22 at 0445, Until Fri05/30/22 at 1236, Patient preference for lesser PRN pain meds may be honored when the patient requests a less strong medication, a lower dose, or a less intrusive route of administration when the lesser drug, dose and route have been ordered for the patient. This patient request must be documented in the 1808 ($ Given - Provider: Shima Presley RN) bisacodyl (Dulcolax) suppository 10 mg 10 mg, Rectal, DAILY PRN, Constipation, Starting on Fri05/27/22 at 0744, Until Fri05/30/22 at 1236, Remove suppository from foil packaging and insert into rectum. Retain for 15 minutes or as long as tolerated. dextrose 10 % IV bolus(Linked Group 2) 12.5 g, at 468.75 mL/hr, Intravenous, PRN, Other, Bedside Glucose less than 70 mg/dL -If NOT able to eat and/or NPO and with IV Access, Starting on Fri05/19/22 at 1147, Until Fri05/30/22 at 1236, If NOT able to eat and/or NPO and with IV Access: For Bedside Glucose 54-69 mg/dL give 12.5 g Dextrose IV STAT For Bedside Glucose LESS than 54 mg/dl verify with a second Bedside Glucose (from a different site) and give 25 g Dextrose IV STAT Re-check and Re-treat blood glucose EVERY , 10-25 minutes until blood glucose GREATER than or equal to 80 mg/dl. NOTIFY PROVIDER OF HYPOGLYCEMIC EVENT. dextrose 10 % IV bolus(Linked Group 2) 25 g, at 937.5 mL/hr, Intravenous, PRN, Other, Bedside Glucose less than 70 mg/dL -If NOT able to eat and/or NPO and with IV Access, Starting on [place] 05/19/22 at 1147, Until [place] 05/30/22 at 1236, If NOT able to eat and/or NPO and with IV Access: For Bedside Glucose 54-69 mg/dL - give 12.5 g Dextrose IV STAT For Bedside Glucose LESS than 54 mg/dl - verify with a second Bedside Glucose (from a different site) and give 25 g Dextrose IV STAT Re-check and Re-treat blood glucose EVERY - 10-25 minutes until blood glucose GREATER than or equal to 80 mg/dl. - If repeat bedside glucose 54-79 give 12.5 g Dextrose IV STAT NOTIFY PROVIDER OF HYPOGLYCEMIC EVENT. glucagon (Glucagen) injection 1 mg 1 mg, Subcutaneous, PRN, Bedside Glucose less than 70 mg/dL - If NOT able to eat and/or NPO and withOUT IV Access, Starting on [place] 05/19/22 at 1147, Until [place] 05/30/22 at 1236, If NOT able to eat and/or NPO and NO IV Access: For Bedside glucose 54-69 mg/dL - Give 1 mg SQ For Bedside Glucose LESS than 54 mg/dl - verify with a second bedside glucose (from a different site) - Give 1 mg SQ Re-check and Re-treat blood glucose EVERY 10-25 minutes until blood glucose GREATER than or equal to 80 mg/dl. NOTIFY PROVIDER OF HYPOGLYCEMIC EVENT. Reconstitute vial with 1 mL of sterile water for injection for a final concentration of 1 mg/mL; shake vial gently; use immediately and discard unused portion glucose (Diabetic Use) (Dex4 Glucose) oral liquid Oral, PRN, Other, Bedside Glucose less than 70 mg/dL -If able to eat and does not have swallowing difficulties, Starting on [place] 05/19/22 at 1147, Until [place] 05/30/22 at 1236, If able to eat and can swallow thin liquids: For Bedside Glucose 54 - 69 mg/dL Give 15 grams of oral carbohydrates - 1 glucose liquid (see MAR) If patient refuses glucose liquid, then offer: - 4 ounces of fruit juice OR - 4 ounces non-diet soda OR - 8 ounces of fat-free milk For Bedside Glucose LESS than 54 mg/dL - verify with a second Bedside Glucose (from a different site) - If pt is symptomatic, do not delay treatment - If accuracy of the POC glucose is in question, confirm glucose with a STAT laboratory test. Give 30 grams of oral carbohydrates - 2 glucose liquid (see MAR) If patient refuses glucose liquid, then offer: - 8 ounces of fruit juice OR - 8 ounces non-diet soda OR - 16 ounces of fat-free milk Re-check and Re-treat blood glucose EVERY 10-25 minutes until blood glucose GREATER than or equal to 80 mg/dl. - If on recheck, bedside glucose 54-79 mg/dL - Give 15 grams of oral carbohydrates (see above for choices) NOTIFY PROVIDER OF HYPOGLYCEMIC EVENT. glucose (Diabetic Use) oral gel Oral, PRN, Other, Bedside Glucose less than 70 mg/dL -If able to eat and does not have swallowing difficulties, Starting on 05/19/22 at 1147, Until [place] 05/30/22 at 1236, If able to eat and is better able to swallow gel: For Bedside Glucose 54 - 69 mg/dL Give 15 grams of oral carbohydrates - 1 glucose gel (see MAR) If patient refuses glucose gel, then offer: - 4 ounces of fruit juice OR - 4 ounces non-diet soda OR - 8 ounces of fat-free milk For Bedside Glucose LESS than 54 mg/dL verify with a second Bedside Glucose (from a different site) - If pt is symptomatic, do not delay treatment - If accuracy of the POC glucose is in question, confirm glucose with a STAT laboratory test Give 30 grams of oral carbohydrates - 2 glucose gels (see MAR) If patient refuses glucose gel, then offer: - 8 ounces of fruit juice OR - 8 ounces non-diet soda OR - 16 ounces of fat-free milk Re-check and Re-treat blood glucose EVERY 10-25 minutes until blood glucose GREATER than or equal to 80 mg/dl. - If on recheck, bedside glucose 54-79 mg/dL - Give 15 grams of oral carbohydrates (see above for choices) NOTIFY PROVIDER OF HYPOGLYCEMIC EVENT. glucose chew tablet 4 tablet 4 tablet (16 g), Oral, PRN, Other, Bedside Glucose less than 70 mg/dL -If able to eat and does not have swallowing difficulties, Starting on 05/19/22 at 1147, Until [place] 05/30/22 at 1236, If able to eat and does not have swallowing difficulties: For Bedside Glucose 54 - 69 mg/dL Give 16 grams of oral carbohydrates - 4 glucose tabs (see MAR) If patient refuses glucose tabs, then offer: - 4 ounces of fruit juice OR - 4 ounces non-diet soda OR - 8 ounces of fat-free milk For Bedside Glucose LESS than 54 mg/dL - verify with a second Bedside Glucose (from a different site) - If pt is symptomatic, do not delay treatment - If accuracy of the POC glucose is in question, confirm glucose with a STAT laboratory test. Give 32 grams of oral carbohydrates - 8 glucose tabs (see MAR) If patient refuses glucose gel, then offer: - 8 ounces of fruit juice OR - 8 ounces non-diet soda OR - 16 ounces of fat-free milk Re-check and Re-treat blood glucose EVERY 10-25 minutes until blood glucose GREATER than or equal to 80 mg/dl. - If on recheck, bedside glucose 54-79 mg/dL - Give 15 grams of oral carbohydrates (see above for choices). NOTIFY PROVIDER OF HYPOGLYCEMIC EVENT. Linked Groups Order Group 1: SALINE LOCK, INSERT AND MAINTAIN (CANCELED) Routine, CONTINUOUS, Starting on [place] 05/19/22 at 1145, Until Specified, New collection And 0.9% NaCl injection 3 mLJump to med 3 mL, Intracatheter, EVERY 8 HOURS, First dose on Fri05/19/22 at 1400, Until Discontinued, Flush peripheral IV catheter with 3 mL of normal saline every 8 hours. And 0.9% NaCl injection 1-10 mLJump to med 1-10 mL, Intracatheter, PRN, Other, peripheral line flush, Starting on Fri05/19/22 at 1143, Until [place] 05/30/22 at 1236, Flush peripheral IV catheter with 1-10 mL of normal saline before and after medications and prn to clear blood from the line or to verify patency. Group 2: dextrose 10 % IV bolusJump to med 12.5 g, at 468.75 mL/hr, Intravenous, PRN, Other, Bedside Glucose less than 70 mg/dL -If NOT able to eat and/or NPO and with IV Access, Starting on [place] 05/19/22 at 1147, Until [facility] 05/30/22 at 1236, If NOT able to eat and/or NPO and with IV Access: For Bedside Glucose 54-69 mg/dL give 12.5 g Dextrose IV STAT For Bedside Glucose LESS than 54 mg/dl verify with a second Bedside Glucose (from a different site) and give 25 g Dextrose IV STAT Re-check and Re-treat blood glucose EVERY , 10-25 minutes until blood glucose GREATER than or equal to 80 mg/dl. NOTIFY PROVIDER OF HYPOGLYCEMIC EVENT. Or dextrose 10 % IV bolusJump to med 25 g, at 937.5 mL/hr, Intravenous, PRN, Other, Bedside Glucose less than 70 mg/dL -If NOT able to eat and/or NPO and with IV Access, Starting on 05/19/22 at 1147, Until [place] 05/30/22 at 1236, If NOT able to eat and/or NPO and with IV Access: For Bedside Glucose 54-69 mg/dL - give 12.5 g Dextrose IV STAT For Bedside Glucose LESS than 54 mg/dl - verify with a second Bedside Glucose (from a different site) and give 25 g Dextrose IV STAT Re-check and Re-treat blood glucose EVERY - 10-25 minutes until blood glucose GREATER than or equal to 80 mg/dl. - If repeat bedside glucose 54-79 give 12.5 g Dextrose IV STAT NOTIFY PROVIDER OF HYPOGLYCEMIC EVENT. documented in this encounter Additional Health Concerns Infection Onset Date Last Indicated Resolved Time CDIFF Under Investigation 05/19/2022 05/19/2022 9:06 PM [facility] documented as of this encounter Care Teams Solderer Dipper Relationship Specialty [place] [address] [facility] [address] [place] [address] PCP - General Internal Medicine 03/31/18 05/30/22 [place] [address] [facility] [address] [place] [address] PCP - Attributed-MSSP 11/16/21 10/03/22 Etienne Florez MD Orthopedic Surgery 12/09/14 [place] [address] [facility] [address] [place] [address] Oncology 09/15/17 [place] [address] [facility] [address] [place] [address] Neurology 06/26/18 [place] [address] [facility] [address] [place] [address] Cardiovascular Disease 06/26/18 Russell Moran MD [address] [place] [address] Pulmonary Disease 06/26/18 Yuliya Ibarra MD [address] [facility] [address] [place] [address] Endocrinology 06/26/18 Phuong Callejas DPM [address] [place], [place] [address] Podiatry 06/26/18 Sy Barrientos MD [address] [place] [address] [place] [address] Ophthalmology 06/26/18 Russell Moran MD [address] [place] [address] Pulmonary Disease 06/26/18 Rico Gasca MD [address] [facility] [address], [place] [address] Urology 06/26/18 Elle Landaverde MD [address] [facility] [address] [place] [address] Vascular Surgery 06/26/18 Kirk Truong MD [address] [facility] [address], [place] [address] Gastroenterology 06/26/18 [place] [address] [facility] [address] [place] [address] General Surgery 06/26/18 [place] [address] [facility] [address] [place] [address] Pulmonary Disease 11/10/20 Hussain Ray MD [address] [facility] [address] [place] [address] Urology 07/11/21 documented as of this encounter
--- OUTSIDE RECORDS SUMMARY | 2024-05-26 12:34 | XMS_ITS | Encounter Summary ---
Author Organization [facility] Address [address] [address] Care Team Providers Care Nuclear Fuels Research Engineer Name Role Phone Etienne Florez MD Unavailable Enrique Gonzalez MD Unavailable [phone] Theresa Camargo MD Primary Care Provider Nelson Ross MD Unavailable [phone] Laz Valencia MD Unavailable Russell Moran MD Unavailable [phone] Yuliya Ibarra MD Unavailable Phuong Callejas DPM Unavailable Sy Barrientos MD Unavailable Russell Moran MD Unavailable Rico Gasca MD Unavailable Elle Landaverde MD Unavailable [phone] Kirk Truong MD Unavailable [phone] Shira Love DO Unavailable [phone] Sara Schultz MD Unavailable [phone] Brooke Haynes APRN-SALES ACCOUNT SPECIALIST Unavailable [phone] Rosa Abraham RN Unavailable [phone] Reason for Visit * Reason Onset Date Comments LABS ONLY 07/05/2021 schedule labs to be done at [facility] Encounter Details Date Type Department Care Team (Late st Contact Info) Description 07/05/[address] [facility] Cancer [facility] [address] [place] [address] Bonny Christensen LABS ONLY (schedule labs to be done at [facility]) Social History Tobacco Use Types Packs/Day Years [...] < 140/90 Blood Pressure 127/52(2022 8:09 AM TILE BURNER) No Alisa Jaramillo HEMOGLOBIN A1C < 7.0 Result Component 5.4( 12:00 AM CDT) No Alisa Jaramillo documented as of this encounter Visit Diagnoses Not on filedocumented in this encounter Care Teams Nuclear Fuels Research Engineer Relationship Specialty [place] [address] [facility] [address] [address] [place] [address] PCP - General Internal Medicine 03/31/18 05/30/22 Brooke Haynes APRN-SALES ACCOUNT SPECIALIST [address] [facility] [address] [place] [address] PCP - Attributed-MSSP 10/17/20 09/15/21 Etienne Florez MD Orthopedic Surgery 12/09/14 [place] [address] [facility] [address] [place] [address] Oncology 09/15/17 [place] [address] [facility] [address] [place] [address] Neurology 06/26/18 [place] [address] [facility] [address] [place] [address] Cardiovascular Disease 06/26/18 [place] [address] [address] Pulmonary Disease 06/26/18 Yuliya Ibarra MD [address] [facility] [address] [place] [address] Endocrinology 06/26/18 Phuong Callejas DPM [address] [place] [address] Podiatry 06/26/18 Sy Barrientos MD [address] [place] [address] [place] [address] Ophthalmology 06/26/18 [place] [address] [address] Pulmonary Disease 06/26/18 Rico Gasca MD [address] [address] Urology 06/26/18 Elle Landaverde MD [address] [address] Vascular Surgery 06/26/18 Kirk Truong MD [address] [address] Gastroenterology 06/26/18 [place] [address] [address] [place] [address] General Surgery 06/26/18 [place] [address] [place], [place] [address] Pulmonary Disease 11/10/20 Rosa Abraham, DES Distribution Center AdministratorWell Logging Captain 06/19/21 07/05/21 documented as of this encounter
--- OUTSIDE RECORDS SUMMARY | 2024-05-26 12:34 | XMS_ITS | Encounter Summary ---
Author Organization [facility] Address [address] [facility] [address] [place] [address] Care Team Providers Care Cross Cut Saw Operator Name Role Phone Etienne Florez MD Unavailable Enrique Gonzalez MD Unavailable [phone] Theresa Camargo MD Primary Care Provider [phone] Nelson Ross MD Unavailable [phone] Laz Valencia MD Unavailable Russell Moran MD Unavailable [phone] Yuliya Ibarra MD Unavailable Phuong Callejas DPM Unavailable Sy Barrientos MD Unavailable Russell Moran MD Unavailable Rico Gasca MD Unavailable Elle Landaverde MD Unavailable Kirk Truong MD Unavailable [phone] Shira Love DO Unavailable [phone] Sara Schultz MD Unavailable [phone] Hussain Ray MD Unavailable [phone] Enrique Gonzalez MD Unavailable [phone] Reason for Visit * Reason Onset Date Comments Question 02/15/2022 Encounter Details Date Type Department Care Team (Late st Contact Info) Description 02/15/2022 Telephone [facility] Cancer Care [address] [facility] [address] [place] [address] [place] [address] [facility] [address] [place] [address] Question Social History Tobacco Use [...] encounter Miscellaneous Notes * [place] - 02/15/2022 10:42 AM CDT Patient's daughter called again, she found a doctor that is closer for her mom to go to even thoughthey loved Dr. Gonzalez. It is just impossible to get her here with her health. She needs a referral sent to Dr Ovidio Nolen so that he can see her. Please make sure to note that the reason for leaving is health related on traveling the distance. Patient's daughter said to include as much as possible o n her health condition. Fax referral to Please call Ange to let her know that it was faxed or if you need more information. Her mom's appointments with us for Feb 20 are being canceled. The number for [facility] was given to her to have her records transferred. documented in this encounter Plan of Treatment Not on file documented as of this encounter Goals Goal Patient Goal Type Associated Problems Recent Progress Patient-Stated? 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 8:09 AM GLOBAL HUMAN RESOURCES DIRECTOR) No Alisa Jaramillo HEMOGLOBIN A1C < 7.0 Result Component 5.4( 12:00 AM CDT) No Alisa Jaramillo documented as of this encounter Visit Diagnoses Not on filedocumented in this encounter Care Teams Cross Cut Saw Operator Relationship Specialty Start [place] [address] [facility] [address] [place] [address] PCP - General Internal Medicine 03/31/18 05/30/22 [place] [address] [address] PCP - Attributed-MSSP 11/16/21 10/03/22 Etienne Florez MD Orthopedic Surgery 12/09/14 [place] [address] [address] Oncology 09/15/17 [place] [address] [facility] [address] [place] [address] Neurology 06/26/18 [place] [address] [facility] [address] [place] [address] Cardiovascular Disease 06/26/18 [place] [address] [place] [address] Pulmonary Disease 06/26/18 Yuliya Ibarra MD [address] [facility] [address] [place] [address] Endocrinology 06/26/18 Phuong Callejas DPM [address] [place], [place] [address] Podiatry 06/26/18 Sy Barrientos MD [address] [place] [address] [place] [address] Ophthalmology 06/26/18 [place] [address] [address] Pulmonary Disease 06/26/18 Rico Gasca MD [address] [place] [address] Urology 06/26/18 Elle Landaverde MD [address] [place] [address] Vascular Surgery 06/26/18 Kirk Truong MD [address] [facility] [address] [place] [address] Gastroenterology 06/26/18 [place] [address] [facility] [address] [place] [address] General Surgery 06/26/18 [place] [address] [facility] [address] [place] [address] Pulmonary Disease 11/10/20 Hussain Ray MD [address] [facility] [address] [place] [address] Urology 07/11/21 documented as of this encounter
--- OUTSIDE RECORDS SUMMARY | 2024-05-26 12:34 | XMS_ITS | Encounter Summary ---
Author Organization [facility] Address [address] [facility] [address] [place] [address] Care Team Providers Care Electrical Manager Name Role Phone Etienne Florez MD Unavailable Enrique Gonzalez MD Unavailable [phone] Theresa Camargo MD Primary Care Provider [phone] Nelson Ross MD Unavailable [phone] Laz Valencia MD Unavailable Russell Moran MD Unavailable Yuliya Ibarra MD Unavailable [phone] Phuong Callejas DPM Unavailable Sy Barrientos MD Unavailable [phone] Russell Moran MD Unavailable Rico Gasca MD Unavailable Elle Landaverde MD Unavailable Kirk Troung MD Unavailable [phone] Shira Love DO Unavailable [phone] Sara Schultz MD Unavailable [phone] Ivy Brooke [facility] Unavailable [phone] Reason for Visit * Reason Comments Refill Request Encounter Details Date Type Department Care Team (Late st Contact Info) Description 06/18/2021 Refill [facility] Cancer Care [address] [address] [place] [address] [facility] [address] [place] [address] Refill Request Social History Tobacco Use Types [...] < 140/90 Blood Pressure 127/52(2022 8:09 AM ARCHERY EQUIPMENT REPAIRER) No Alisa Jarmaillo HEMOGLOBIN A1C < 7.0 Result Component 5.4( 12:00 AM CDT) No Alisa Jaramillo documented as of this encounter Visit Diagnoses Not on filedocumented in this encounter Care Teams Electrical Manager Relationship Specialty Start [place] [address] [facility] [address] [place], [place] [address] PCP - General Internal Medicine 03/31/18 05/30/22 Brooke Haynes APRN-RECORDING ENGINEER [address] [facility] [address] [place] [address] PCP - Attributed-MSSP 10/17/20 09/15/21 Etienne Florez MD Orthopedic Surgery 12/09/14 [place] [address] [facility] [address] [place] [address] Oncology 09/15/17 [place] [address] [facility] [address] [place] [address] Neurology 06/26/18 [place] [address] [facility] [address] [place] [address] Cardiovascular Disease 06/26/18 [place] [address] [facility] [address] [place] [id number] Pulmonary Disease 06/26/18 Yuliya Ibarra MD [address] [facility] [address] [place] [address] Endocrinology 06/26/18 Phuong Callejas DPM [address] [place] [address] Podiatry 06/26/18 Sy Barrientos MD [address] [place] [address] [place] [address] Ophthalmology 06/26/18 [place] [address] [address] Pulmonary Disease 06/26/18 Rioc Gasca MD [address] [address] Urology 06/26/18 Elle Landaverde MD [address] [address] Vascular Surgery 06/26/18 Kirk Truong MD [address] [address] Gastroenterology 06/26/18 [place] [address] [facility] [address] [place] [address] General Surgery 06/26/18 [place] [address] [place], [place] [address] Pulmonary Disease 11/10/20 documented as of this encounter
--- OUTSIDE RECORDS SUMMARY | 2024-05-26 12:34 | XMS_ITS | Encounter Summary ---
Author Organization [facility] Address [address] [facility] [place] [address] Care Team Providers Care Plastics And Composites Inspector Name Role Phone Etienne Florez MD Unavailable Enrique Gonzalez MD Unavailable [phone] Theresa Camargo MD Primary Care Provider Nelson Ross MD Unavailable [phone] Laz Valencia MD Unavailable Russell Moran MD Unavailable [phone] Yuliya Ibarra MD Unavailable Phuong Callejas DPM Unavailable [phone] Sy Barrientos MD Unavailable [phone] Russell Moran MD Unavailable Rico Gasca MD Unavailable [phone] Elle Landaverde MD Unavailable Kirk Truong MD Unavailable [phone] Shira Love DO Unavailable [phone] Sara Schultz MD Unavailable [phone] Brooke Haynes APRN-FREIGHT AGENT Unavailable [phone] Hussain Ray MD Unavailable [phone] Encounter Details Date Type Department Care Team (Late st Contact Info) Description 08/06/2021 Orders Only [facility] Cancer Care [address] [facility]. [address] [place] [address] [place] [address] [facility] [address] [place] [address] Social History Tobacco Use Types [...] < 140/90 Blood Pressure 127/52(2022 8:09 AM LEAF CONDITIONER) No Alisa Jaramillo HEMOGLOBIN A1C < 7.0 Result Component 5.4( 12:00 AM CDT) No Schildroth, Alisa documented as of this encounter Visit Diagnoses Not on filedocumented in this encounter Care Teams Plastics And Composites Inspector Relationship Specialty Start [place] [address] [facility] [address] [place] [address] PCP - General Internal Medicine 03/31/18 05/30/22 Brooke Haynes APRN-FREIGHT AGENT [address] [facility] [address] [place] [address] PCP - Attributed-MSSP 10/17/20 09/15/21 Etienne Florez MD Orthopedic Surgery 12/09/14 [place] [address] [facility] [address] [place] [address] Oncology 09/15/17 [place] [address] [facility] [address] [place] [address] Neurology 06/26/18 [place] [address] [facility] [address] [place] [address] Cardiovascular Disease 06/26/18 [place] [address] [address] Pulmonary Disease 06/26/18 Yuliya Ibarra MD [address] [facility] [address] [place] [address] Endocrinology 06/26/18 Phuong Callejas DPM [address] [place] [address] Podiatry 06/26/18 Sy Barrientos MD [address] [place] [address] [place] [address] Ophthalmology 06/26/18 [place] [address] [address] Pulmonary Disease 06/26/18 Rico Gasca MD [address] [address] Urology 06/26/18 Elle Landaverde MD [address] [address] Vascular Surgery 06/26/18 Kirk Truong MD [address] [address] Gastroenterology 06/26/18 [place] [address] [facility] [address] [place] [address] General Surgery 06/26/18 [place] [address] [facility] [address] [place] [address] Pulmonary Disease 11/10/20 Hussain Ray MD [address] [facility] [address] [place] [address] Urology 07/11/21 documented as of this encounter
--- OUTSIDE RECORDS SUMMARY | 2024-05-26 12:34 | XMS_ITS | Encounter Summary ---
Author Organization [facility] Address [address] [place] [address] Care Team Providers Care Solar Sales Assessor Name Role Phone Etienne Florez MD Unavailable Enrique Gonzalez MD Unavailable [phone] Theresa Camargo MD Primary Care Provider Nelson Ross MD Unavailable [phone] Laz Valencia MD Unavailable Russell Moran MD Unavailable [phone] Yuliya Ibarra MD Unavailable Phuong Callejas DPM Unavailable Sy Barrientos MD Unavailable [phone] Russell Moran MD Unavailable Rico Gasca MD Unavailable Elle Landaverde MD Unavailable [phone] Kirk Truong MD Unavailable [phone] Shira Love DO Unavailable [phone] Sara Schultz MD Unavailable [phone] Brooke Haynes MILK TESTER-PURE CULTURE OPERATOR Unavailable [phone] Reason for Visit * Reason Onset Date Comments MEDICATION REFILL 06/12/2021 Encounter Details Date Type Department Care Team (Late st Contact Info) Description 06/12/2021 Refill [facility] Family Medicine [address] [address] Bonny Ballesteros [facility] [address] [facility] [address] [place] [address] MEDICATION REFILL Social History Tobacco [...] No / Unsure 05/15/2021 12:45 PM RN SUPPORT SERVICES documented as of this encounter Functional Status [...] 140/90 Blood Pressure 127/52(2022 8:09 AM RN SUPPORT SERVICES) No Schildroth, Alisa HEMOGLOBIN A1C < 7.0 Result Component 5.4( 1 12:00 AM CDT) No ClintAmberAlisa documented as of this encounter Visit Diagnoses Not on filedocumented in this encounter Care Teams Solar Sales Assessor Relationship Specialty [place] [address] [facility] [address] [place] [address] PCP - General Internal Medicine 03/31/18 05/30/22 Brooke Haynes, MILK TESTER-PURE CULTURE OPERATOR [address] [facility] [address] [place] [address] PCP - Attributed-MSSP 10/17/20 09/15/21 Etienne Florez MD Orthopedic Surgery 12/09/14 [place] [address] [facility] [address] [place] [address] Oncology 09/15/17 [place] [address] [facility] [address] [place] [address] Neurology 06/26/18 [place] [address] [facility] [address] [place] [address] Cardiovascular Disease 06/26/18 [place] [address] [address] Pulmonary Disease 06/26/18 Yuliya Ibarra MD [address] [facility] [address] [place] [address] Endocrinology 06/26/18 Phuong Callejas DPM [address] [place], [place] [address] Podiatry 06/26/18 Sy Barrientos MD [address] [place] [address] Ophthalmology 06/26/18 [place] [address] [id number] Pulmonary Disease 06/26/18 Rico Gasca MD [address] [place] [address] Urology 06/26/18 Elle Landaverde MD [address] [place] [address] Vascular Surgery 06/26/18 Kirk Truong MD [address] [place] [address] Gastroenterology 06/26/18 [place] [address] [place] [address] General Surgery 06/26/18 [place] [address] [place] [address] Pulmonary Disease 11/10/20 documented as of this encounter
--- OUTSIDE RECORDS SUMMARY | 2024-05-26 12:34 | XMS_ITS | Encounter Summary ---
Author Organization [facility] Address [address] [place] [address] Care Team Providers Care Psychologist Personnel Name Role Phone Etienne Florez MD Unavailable Enrique Gonzalez MD Unavailable [phone] Theresa Camargo MD Primary Care Provider Nelson Ross MD Unavailable Laz Valencia MD Unavailable Russell Moran MD Unavailable [phone] Yuliya Ibarra MD Unavailable Phuong Callejas DPM Unavailable Sy Barrientos MD Unavailable Russell Moran MD Unavailable [phone] Rico Gasca MD Unavailable Elle Landaverde MD Unavailable [phone] Kirk Truong MD Unavailable [phone] Shira Love DO Unavailable [phone] Sara Schultz MD Unavailable [phone] Hussain Ray MD Unavailable [phone] Enrique Gonzalez MD Unavailable [phone] Reason for Visit * Reason Onset Date Comments Question 02/08/2022 Encounter Details Date Type Department Care Team (Late st Contact Info) Description 02/08/2022 Telephone [facility] Cancer Care [address] [place] [phone] [facility] Hotlist [id number] [address] [facility] [place] [place] [phone] Question Social History Tobacco Use Types Packs/Day [...] encounter Miscellaneous Notes * Telephone Encounter - Eneida Tay RN - 02/08/2022 3:15 PM CDT Done. Thank you * Telephone Encounter - Jodi Kahn - 02/08/2022 12:01 PM CDT Ange wants a call back to get the pt reschedule for a later time or another day . Ange said that she left a message a couple of weeks ago but no one called her back Call Ange at [phone] documented in this encounter Plan of Treatment Not on file documented as of this encounter Goals Goal Patient Goal Type Associated Problems Recent Progress Patient-Stated? 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 8:09 AM PIN PULLER) No Alisa Jaramillo HEMOGLOBIN A1C < 7.0 Result Component 5.4( 12:00 AM CDT) No Alisa Jaramillo documented as of this encounter Visit Diagnoses Not on filedocumented in this encounter Care Teams Psychologist Personnel Relationship Specialty Start [place] [address] [place], [place] [id number] PCP - General Internal Medicine 03/31/18 05/30/22 [place] [address] [facility] [address] [place] [address] PCP - Attributed-MSSP 11/16/21 10/03/22 Etienne Florez MD Orthopedic Surgery 12/09/14 [place] [address] [place] [address] Oncology 09/15/17 [place] [address] [address] [place] [address] Neurology 06/26/18 [place] [address] [facility] [address] [place] [address] Cardiovascular Disease 06/26/18 [place] [address] [id number] Pulmonary Disease 06/26/18 Yuliya Ibarra MD [address] [place] [address] Endocrinology 06/26/18 Phuong Callejas DPM [address] [place] [address] Podiatry 06/26/18 Sy Barrientos MD [address] [place] [address] Ophthalmology 06/26/18 [place] [address] [id number] Pulmonary Disease 06/26/18 Rico Gasca MD [address] [place] [address] Urology 06/26/18 Elle Landaverde MD [address] [place] [address] Vascular Surgery 06/26/18 Kirk Truong MD [address] [place] [address] Gastroenterology 06/26/18 [place] [address] [facility] [address] [place] [address] General Surgery 06/26/18 [place] [address] [facility] [address] [place], [place] [address] Pulmonary Disease 11/10/20 Hussain Ray MD [address] [facility] [address] [place] [address] Urology 07/11/21 documented as of this encounter
--- OUTSIDE RECORDS SUMMARY | 2024-05-26 12:35 | XMS_ITS | Encounter Summary ---
Author Organization [facility] Address [address] [facility] [place] [address] Care Team Providers Care Pharmacy Services Representative Name Role Phone Etienne Florez MD Unavailable [phone] Enrique Gonzalez MD Unavailable [phone] Theresa Camargo MD Primary Care Provider Nelson Ross MD Unavailable [phone] Laz Valencia MD Unavailable Russell Moran MD Unavailable Yuliya Ibarra MD Unavailable Phuong Callejas DPM Unavailable Sy Barrientos MD Unavailable [phone] Russell Moran MD Unavailable [phone] Rico Gasca MD Unavailable Elle Landaverde MD Unavailable Kirk Truong MD Unavailable Shira Love DO Unavailable [phone] Sara Schultz MD Unavailable [phone] Ivy Brooke [facility] Unavailable Reason for Visit * Reason Comments Refill Request Encounter Details Date Type Department Care Team (Late st Contact Info) Description 12/01/2020 Refill [facility] - Family Medicine [address] [facility] [address] [place] [address] [place] [address] [facility] [address] [place] [address] Refill Request Social History Tobacco [...] * Telephone Encounter - Lexus Starks - 12/01/2020 12:49 PM CDT Last refill:10/12/2020 Last ov: Next ov: documented in this encounter Plan of Treatment Not on file documented as of this encounter Goals Goal Patient Goal Type Associated Problems Recent Progress Patient-Stated? 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 8:09 AM RESIDENTIAL SUPPORT SPECIALIST) No Alisa Jaramillo HEMOGLOBIN A1C < 7.0 Result Component 5.4( 12:00 AM CDT) No AllisonflorentinoAlisa marks documented as of this encounter Visit Diagnoses Not on filedocumented in this encounter Care Teams Pharmacy Services Representative Relationship Specialty [place] [address] [address] [address] [place] [address] PCP - General Internal Medicine 03/31/18 05/30/22 Brooke Haynes APRN-SENIOR MEDICAL TRANSCRIPTIONIST [address] [facility] [address] [address] [place] [address] PCP - Attributed-MSSP 10/17/20 09/15/21 Etienne Florez MD Orthopedic Surgery 12/09/14 [place] [address] [facility] [facility] [address] [place] [address] Oncology 09/15/17 [place] [address] [facility] [address] [place] [address] Neurology 06/26/18 [place] [address] [address] Cardiovascular Disease 06/26/18 [place] [address] [address] Pulmonary Disease 06/26/18 Yuliya Ibarra MD [address] [place] [address] Endocrinology 06/26/18 Phuong Callejas DPM [address] [place] [address] Podiatry 06/26/18 Sy Barrientos MD [address] [place] [address] [place] [address] Ophthalmology 06/26/18 [place] [address] [id number] Pulmonary Disease 06/26/18 Rico Gasca MD [address] [place] [address] Urology 06/26/18 Elle Landaverde MD [address] [facility] [address] [place] [address] Vascular Surgery 06/26/18 Kirk Truong MD [address] [facility] [address] [place] [address] Gastroenterology 06/26/[address] [place] [address] [facility] [address] [place] [address] General Surgery 06/26/18 [place] [address] [facility] [address] [place] [address] Pulmonary Disease 11/10/20 documented as of this encounter
--- OUTSIDE RECORDS SUMMARY | 2024-05-26 12:35 | XMS_ITS | Encounter Summary ---
Author Organization [facility] Address [address] [place] [address] Care Team Providers Care Conveyor Feeder Offbearer Name Role Phone Etienne Florez MD Unavailable Enrique Gonzalez MD Unavailable [phone] Theresa Camargo MD Primary Care Provider [phone] Nelson Ross MD Unavailable [phone] Laz Valencia MD Unavailable Russell Moran MD Unavailable [phone] Yuliya Ibarra MD Unavailable Phuong Callejas DPM Unavailable Sy Barrientos MD Unavailable Russell Moran MD Unavailable Rico Gasca MD Unavailable [phone] Elle Landaverde MD Unavailable Kirk Truong MD Unavailable [phone] Shira Love DO Unavailable [phone] Sara Schultz MD Unavailable [phone] Ivy Brooke [facility] Unavailable [phone] Reason for Visit * Reason Onset Date Comments Question 01/04/2021 Encounter Details Date Type Department Care Team (Late st Contact Info) Description 01/04/[address] [facility] Cancer Care [address] [facility] [address] [place] [address] [place] [address] [facility] [address] [place] [address] Question Social History Tobacco Use [...] have Coronavirus / COVID-19? No / Unsure 12/29/2020 11:04 AM CDT documented as of this encounter Functional Status [...] encounter Miscellaneous Notes * Telephone Encounter - Christi Beth - 01/04/2021 12:44 PM CDT Patient was hospitolized (not depaul) pls advise when she should come back and if prolia will be scheduled as well. documented in this encounter Plan of Treatment Not on file documented as of this encounter Goals Goal Patient Goal Type Associated Problems Recent Progress Patient-Stated? 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 8:09 AM BRUSHING OPERATOR) No Clint Alisa HEMOGLOBIN A1C < 7.0 Result Component 5.4( 12:00 AM CDT) No Alisa Jaramillo documented as of this encounter Visit Diagnoses Not on filedocumented in this encounter Care Teams Conveyor Feeder Offbearer Relationship Specialty Start [place] [address] [facility] [address] [place] [address] PCP - General Internal Medicine 03/31/18 05/30/22 Brooke Haynes APRN-THIRD LOADER [address] [facility] [address] [place], [place] [address] PCP - Attributed-MSSP 10/17/20 09/15/21 Etienne Florez MD Orthopedic Surgery 12/09/14 [place] [address] [facility] [address] [place] [address] Oncology 09/15/17 [place] [address] [facility] [address] [place] [address] Neurology 06/26/18 [place] [address] [facility] [address] [place] [address] Cardiovascular Disease 06/26/18 [place] [address] [address] Pulmonary Disease 06/26/18 Yuliya Ibarra MD [address] [place] [address] Endocrinology 06/26/18 Phuong Callejas DPM [address] [place], [place] [address] Podiatry 06/26/18 Sy Barrientos MD [address] [place] [address] [place] [address] Ophthalmology 06/26/18 [place] [address] [address] Pulmonary Disease 06/26/18 Rico Gasca MD [address] [place] [address] Urology 06/26/18 Elle Landaverde MD [address] [place] [address] Vascular Surgery 06/26/18 Kirk Truong MD [address] [place] [address] Gastroenterology 06/26/18 [place] [address] [place] [address] General Surgery 06/26/18 [place] [address] [facility] [address] [place] [address] Pulmonary Disease 11/10/20 documented as of this encounter
--- OUTSIDE RECORDS SUMMARY | 2024-05-26 12:35 | XMS_ITS | Encounter Summary ---
Author Organization [facility] Address [address] [place] [address] Care Team Providers Care Convenience Recycle Center Tech Name Role Phone Etienne Florez MD Unavailable [phone] Enrique Gonzalez MD Unavailable [phone] Theresa Camargo MD Primary Care Provider [phone] Nelson Ross MD Unavailable [phone] Laz Valencia MD Unavailable Russell Moran MD Unavailable Yuliya Ibarra MD Unavailable [phone] Phuong Callejas DPM Unavailable Sy Barrientos MD Unavailable Russell Moran MD Unavailable Rico Gasca MD Unavailable Elle Landaverde MD Unavailable Kirk Truong MD Unavailable [phone] Shiar Love DO Unavailable [phone] Sara Schultz MD Unavailable [phone] Ivy Brooke [facility] Unavailable [phone] Reason for Visit * Reason Comments Refill Request Encounter Details Date Type Department Care Team (Late st Contact Info) Description 02/19/2021 Refill [facility] [address] [place] [address] [place] [address] [facility] [address] [place] [address] Refill Request Social History Tobacco Use Types [...] encounter Miscellaneous Notes * Telephone Encounter - Eva Sinha - 02/19/2021 10:00 AM CDT Perla Leon Allergies Allergen Reactions ??? Advair Diskus YEAS INFECTION ??? Aricept [Donepezil] Other I dont remember ??? Diltiazem Swelling Patient takes verapamil as home med -2020 ??? Metformin Diarrhea ??? Black Pepper [Piper Longum] Unknown ??? Fluticasone Diarrhea ??? Salmeterol Diarrhea ??? Sotalol Other Hair loss Requested Prescriptions Pending Prescriptions Disp Refills ??? amitriptyline (ELAVIL) 25 MG tablet [Pharmacy Med Name: AMITRIPTYLINE HCL 25 MG TAB] 180 tablet1 Sig: TAKE 2 TABLETS BY MOUTH EVERY DAY AT BEDTIME LAST FILL: 11/24/2020 LAST OV: 06/13/2020 documented in this encounter Plan of Treatment Not on file documented as of this encounter Goals Goal Patient Goal Type Associated Problems Recent Progress Patient-Stated? 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 8:09 AM LINSEED OIL TEMPERER) No Alisa Jaramillo HEMOGLOBIN A1C < 7.0 Result Component 5.4( 12:00 AM CDT) No Alisa Jaramillo documented as of this encounter Visit Diagnoses Not on filedocumented in this encounter Care Teams Convenience Recycle Center Tech Relationship Specialty Start [place] [address] [employer] [address] [place] [address] PCP - General Internal Medicine 03/31/18 05/30/22 Brooke Haynes APRN-ACCELERATOR OPERATOR [address] [employer] [address] [place] [address] PCP - Attributed-MSSP 10/17/20 09/15/21 Etienne Florez MD Orthopedic Surgery 12/09/14 [place] [address] [employer] [facility] [address] [place] [address] Oncology 09/15/17 [place] [address] [employer] [facility] [address] [place] [address] Neurology 06/26/18 [place] [address] [facility] [address] [place] [address] Cardiovascular Disease 06/26/18 [place] [address] [facility] [address] [place] [address] Pulmonary Disease 06/26/18 Yuliya Ibarra MD [address] [facility] [address] [place] [address] Endocrinology 06/26/18 Phuong Callejas DPM [address] [place] [address] Podiatry 06/26/18 Sy Barrientos MD [address] [place] [address] [place] [address] Ophthalmology 06/26/18 [place] [address] [address] Pulmonary Disease 06/26/18 Rico Gasca MD [address] [place] [address] Urology 06/26/18 Elle Landaverde MD [address] [place] [address] Vascular Surgery 06/26/18 Kirk Truong MD [address] [facility] [address] [place] [address] Gastroenterology 06/26/18 [place] [address] [facility] [address] [place] [address] General Surgery 06/26/18 [place] [address] [facility] [address] [place] [address] Pulmonary Disease 11/10/20 documented as of this encounter
--- OUTSIDE RECORDS SUMMARY | 2024-05-26 12:35 | XMS_ITS | Encounter Summary ---
Author Organization [facility] Address [address] [place] [address] Care Team Providers Care Teacher Tutor Name Role Phone Etienne Florez MD Unavailable Enrique Gonzalez MD Unavailable [phone] Theresa Camargo MD Primary Care Provider Nelson Ross MD Unavailable Laz Valencia MD Unavailable Russell Moran MD Unavailable Yuliya Ibarra MD Unavailable Phuong Callejas DPM Unavailable [phone] Sy Barrientos MD Unavailable Russell Moran MD Unavailable Rico Gasca MD Unavailable [phone] Elle Landaverde MD Unavailable Kirk Truong MD Unavailable Shira Love DO Unavailable [phone] Sara Schultz MD Unavailable [phone] Brooke Haynes APRN-[facility] Unavailable [phone] Encounter Details Date Type Department Care Team (Latest Contact Info) Description 01/18/2021 7:35 AM CDT - 01/18/2021 11:59 PM CDT Hospital Encounter Critical access hospital - Laboratory [address] [place] [address] [place] [address] [address] Discharge Disposition: Home or Self Care [...] Take 1,000 Units by mouth once daily amitriptyline (ELAVIL) 25 MG tablet TAKE 2 TABLETS BY MOUTH EVERY DAY AT BEDTIME 60 tablet 5 08/22/2020 02/19/2021 anastrozole (ARIMIDEX) 1 MG tablet TAKE 1 TABLET DAILY FOR 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 90 tablet 3 06/21/2020 06/18/2021 apixaban (ELIQUIS) 5 MG tablet Take 1 (one) tablet by mouth 2 times daily Take 10 mg po bid till 10/05 and then continue 5 mg po bid there after 60 tablet 11 10/12/2020 10/12/2021 aspirin EC (ECOTRIN) 81 MG tablet Take 81 mg by mouth once daily 03/06/2021 BD PEN NEEDLE HAYDNE U/F 32G X 4 MM MISC USE TO INJECT INSULIN ONCE DAILY 05/05/2020 05/21/2022 canagliflozin (INVOKANA) 100 MG tablet Take 100 mg by mouth daily before breakfast 07/21/2019 Cranberry-Vitamin C (AZO CRANBERRY URINARY TRACT) 250-60 MG Take 2 tablets by mouth once daily 05/21/2022 Cyanocobalamin 1000 MCG Take by mouth once daily. 05/21/2022 denosumab (PROLIA) 60 MG/ML SC injection Inject 60 mg subcutaneously Every 180 days 05/30/2022 esomeprazole (NEXIUM) 40 MG capsule TAKE 1 CAPSULE DAILY 90 capsule 2 06/28/2020 03/06/2021 ferrous sulfate 325 (65 FE) MG tablet Take 1 (one) tablet by mouth 2 times daily with morning and evening meal 60 tablet 5 12/14/2020 03/06/2021 FREESTYLE LITE STRIPS test strip TEST BLOOD SUGARS THREE TIMES A DAY 05/05/2020 05/21/2022 glimepiride (AMARYL) 1 MG tablet Take 1 mg by mouth 3 times daily 2 tabs in the AM, 2 tabs at noon and 1 tab at bedtime 05/21/2022 insulin glargine (LANTUS) pen Inject 12 (twelve) Units subcutaneously every morning 05/30/2022 levoFLOXacin (LEVAQUIN) 500 MG tablet Take 500 mg by mouth once daily 01/11/2021 05/04/2021 levothyroxine (SYNTHROID) 75 MCG tablet Take 1 (one) tablet by mouth once daily 90 tablet 4 12/14/2020 05/21/2022 magnesium hydroxide (MILK OF MAGNESIA) 400 MG/5ML suspension Take 30 mL by mouth once daily 12/29/2020 01/28/2021 metOLazone (ZAROXOLYN) 2.5 MG tablet Take 1 tablet by mouth twice a week on Friday and 05/30/2022 potassium chloride ER (KLOR-CON) 20 MEQ [...] < 140/90 Blood Pressure 127/52(2022 8:09 AM LOOM CHECKER) No Alisa Jaramillo HEMOGLOBIN A1C < 7.0 Result Component 5.4( 12:00 AM CDT) No Yeceniakendrick Alisa documented as of this encounter Procedures Procedure Name Priority Date/Time Associated Diagnosis Comments BASIC METABOLIC PANEL (CALCIUM TOTAL) STAT 01/18/2021 9:41 AM CDT Malignant neoplasm of upper-outer quadrant of left breast in female, estrogen receptor positive (HCC) Osteopenia of multiple sites Use of aromatase inhibitors documented in this encounter Results * (ABNORMAL) BASIC METABOLIC PANEL (CALCIUM TOTAL) (01/18/2021 9:41 AM CDT) Glucose 123(H) 70 - 105 mg/dL 01/18/2021 10:15 AM CDT [facility] Sodium 137 136 - 145 mmol/L 01/18/2021 10:15 AM CDT [facility] Potassium 4.2 3.5 - 5.1 mmol/L 01/18/2021 10:15 AM CDT [facility] Chloride 103 98 - 107 mmol/L 01/18/2021 10:15 AM CDT [facility] CO2 25 23 - 31 mmol/L 01/18/2021 10:15 AM CDT [facility] Calcium 10.6(H) 8.4 - 10.4 mg/dL 01/18/2021 10:15 AM CDT [facility] Anion Gap 9 8 - 18 mmol/L 01/18/2021 10:15 AM CDT [facility] BUN 26(H) 9.8 - 20.1 mg/dL 01/18/2021 10:15 AM CDT [facility] Creatinine 0.87 0.57 - 1.11 mg/dL 01/18/2021 10:15 AM CDT [facility] eGFR by MDRD >60 mL/min/1.7 3m2 01/18/2021 10:15 AM CDT [facility] eGFR by MDRD >60 mL/min/1.7 3m2 01/18/2021 10:15 AM CDT [facility] Blood BLOOD SPECIMEN / Unknown Venipuncture / Unknown 01/18/2021 9:41 AM CDT 01/18/2021 9:57 AM CDT Enrique Gonzalez MD LAB - CHEMISTRY ROWAN QUIRO[facility] [address] [place], [place] [id number] documented in this encounter Visit Diagnoses Diagnosis Malignant neoplasm of upper-outer quadrant of left breast in female, estrogen receptor positive (HCC) Osteopenia of multiple sites Use of aromatase inhibitors documented in this encounter Care Teams Teacher Tutor Relationship Specialty [place] [address] [facility] [address] [place] [address] PCP - General Internal Medicine 03/31/18 05/30/22 Brooke Haynes APRN-[employer] SUPERVISOR [address] [facility] [address] [place] [address] PCP - Attributed-MSSP 10/17/20 09/15/21 Etienne Florez MD Orthopedic Surgery 12/09/14 [place] [address] [facility] [address] [place] [address] Oncology 09/15/17 [place] [address] [facility] [address] [place] [address] Neurology 06/26/18 [place] [address] [facility] [address] [place] [address] Cardiovascular Disease 06/26/18 [place] [address] [address] Pulmonary Disease 06/26/18 Yuliya Ibarra MD [address] [place] [address] Endocrinology 06/26/18 Phuong Callejas DPM [address] [place] [address] Podiatry 06/26/18 Sy Barrientos MD [address] [place] [address] [place] [address] Ophthalmology 06/26/18 [place] [address] [address] Pulmonary Disease 06/26/18 Rico Gasca MD [address] [facility] [address] [place] [address] Urology 06/26/18 Elle Landaverde MD [address] [facility] [address] [place] [address] Vascular Surgery 06/26/18 Kirk Truong MD [address] [address] [place] [address] Gastroenterology 06/26/18 [place] [address] [facility] [address] [place] [address] General Surgery 06/26/18 [place] [address] [facility] [address] [place] [address] Pulmonary Disease 11/10/20 documented as of this encounter
--- OUTSIDE RECORDS SUMMARY | 2024-05-26 12:35 | XMS_ITS | Encounter Summary ---
Author Organization [facility] Address [address] [place] [address] Care Team Providers Care Bilingual Receptionist Name Role Phone Etienne Florez MD Unavailable Enrique Gonzalez MD Unavailable [phone] Theresa Camargo MD Primary Care Provider Nelson Ross MD Unavailable Laz Valencia MD Unavailable Russell Moran MD Unavailable Yuliya Ibarra MD Unavailable Phuong Callejas DPM Unavailable Sy Barrientos MD Unavailable Russell Moran MD Unavailable Rico Gasca MD Unavailable [phone] Elle Landaverde MD Unavailable Kirk Truong MD Unavailable [phone] Shira Love DO Unavailable [phone] Sara Schultz MD Unavailable [phone] Ivy Brooke [facility] Unavailable [phone] Reason for Visit * Reason Comments Follow-up Encounter Details Date Type Department Care Team (Late st Contact Info) Description 01/18/2021 9:40 AM CDT Office Visit [facility] [address] [place] [address] [place] [address] [address] Malignant neoplasm of upper-outer quadrant of left breast in female, estrogen receptor positive (HCC) (Primary Dx); Osteopenia of multiple sites; Use of aromatase inhibitors; Iron deficiency anemia due to chronic blood [...] AM CDT documented as of this encounter Last Filed Vital Signs Vital Sign Reading Time Taken Comments Blood Pressure 110/44 01/18/2021 10:02 AM CDT Pulse 74 01/18/2021 10:02 AM CDT Temperature 35.7 ??C (96.2 ??F) 01/18/2021 10:02 AM C DT Respiratory Rate 20 01/18/2021 10:02 AM CDT Oxygen Saturation 98% 01/18/2021 10:02 AM CDT Inhaled Oxygen Concentration - - Weight 76.3 kg (168 lb 3.2 oz) 01/18/2021 10:02 AM CDT Height 165.1 cm (5' 5 ) 01/18/2021 10:02 AM CDT Body Mass Index 27.99 01/18/2021 10:02 AM CDT documented in this encounter Functional Status Functional [...] * Patient Instructions* Enrique Gonzalez MD - 01/18/2021 10:20 AM CDT CBC, Ferritin + iron studies, LDH, Haptoglobin , Retic, Bilirubin RTC in 4 weeks with CBC documented in this encounter Progress Notes * Enrique Gonzalez MD - 01/18/2021 9:59 AM CDT Oncology Clinic Follow Up Note Date of Follow Up: 01/18/2021 Patient Name:??Perla Leon??is a 80??y.o. Female ??= 1940 ? Surgeon:?Dr Shira Love? PCP: Jarrell Garrison MD ? 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 Arimidex 1 mg po daily started on 09/17/17 Prolia 60 mg SQ Q 6 months started??on 01/14/18 ? C/C: Patient recently hospitalized in [place] for significant iron deficiency anemia came in [...] 01/14/18. She had another DEXA scan at [facility] on 06/06/2020 and showed still osteopenia. Cross referenced seeing the T-score on current bone density to the 1 from October 2017, she appears to have stable bone density. Will continue on Prolia. Her serum calcium level is elevated (Ca= 10.5 mg/dl) due to hyperparathyroidism. She also has hypothyroidism and is following with an special education paraprofessional at [facility]. She was hospitalized at [facility] from 12/20 - 12/28/20 for his significant anemia, evaluation showed evidence of iron deficiency. Her last colonoscopy was in 02/2019. She received 3 dosesof IV iron and 1 unit PRBC transfusion. EGD showed no evidence of bleeding in the esophagus or stomach. She required sigmoidoscopy and fecal disimpaction for chronic constipation. Her admission hemoglobins 7.4 and was discharged with 9.5. Her hemoglobins today is 11.5 g/dl. Medical History Past Medical History: Diagnosis Date ??? Asthma 2013 ??? Atrial fibrillation 2016 ??? Breast cancer [...] T1cN0(i-)M0, stage IA. ER pos 97% (strong), VA pos 23% (moderate), Her-2 neg (1+ on [...] of multiple sites 10/29/2017 ??? Partial seizures 2001 ??? Pneumonia 1989, 08/2005, 07/2010 ??? Pneumonia [...] the HPI. ECOG 3 PS Physical Exam BP 110/44 (BP SITE: LEFT ARM, BP POSITION: SITTING, BP CUFF SIZE: 11) Pulse 74 Temp 96.2 ??F (35.7 ??C) (Temporal) Resp 20 Ht 5' 5 (1.651 m) Wt 168 lb 3.2 oz (76.3 kg) SpO2 98% BMI 27.99 kg/m2 GENERAL: Wheel chair bound, in no acute distress HEENT: Extra-ocular motions intact. Sclerae and conjunctivae normal. ORAL CAVITY AND OROPHARYNX: moist & without lesions. NECK: Supple. NODES: No palpable adenopathy BREAST exam: benign CVS: RRR; no murmurs, rubs or gallops LUNGS: Clear to auscultation bilaterally ABDOMEN: Soft, non-tender, non-distended and without organomegaly. EXTREMITIES: No clubbing, cyanosis, edema SKIN: No rash, eccymoses, or petechiae NEURO: Alert & Oriented x 3. Labs Recent Labs Component Name 01/18/21 1058 01/05/21 1450 12/08/20 0000 WBC 11.5* 9.4 13.7* HGB 11.5* 11.2* 10.6* HCT 39.5 39.5 35.4 PLTCOUNT 408 430* 400 01/05/21: Creatinine 1.13 Calcium= 11.5 Component Latest Ref Rng & Units 01/18/2021 Glucose 70 - 105 mg/dL 123 (H) Sodium 136 - 145 mmol/L 137 Potassium 3.5 - 5.1 mmol/L 4.2 Chloride 98 - 107 mmol/L 103 CO2 23 - 31 mmol/L 25 Calcium 8.4 - 10.4 mg/dL 10.6 (H) Anion Gap 8 - 18 mmol/L 9 BUN 9.8 - 20.1 mg/dL 26 (H) Creatinine 0.57 - 1.11 mg/dL 0.87 Assessment & Plan ? 1. LETA - cause is unclear - recent EGD unremarkable - last colonoscopy in 02/2019 - reported melena - responded well to IV iron -encouraged her to continue oral ferrous sulfate +vitamin B12 supplement - if her H&H drops further, colonoscopy and capsule endoscopy may be the next step - will continue to monitor and bring her back in 4 weeks with labs 2. Malignant neoplasm of upper-outer quadrant of left breast in female, ER+, HER2 negative, Stage IA ??- Arimidex started on 09/17/17 and has been tolerated well - Self breast exam - Mammogram 02/23/2020 was benign. Patient and daughter are thinking to forego any future mammograms and will continue on clinical exam and self-breast exam - breast exam is benign today - will like to continue on annual mammogram and scheduled coming February 2021 3. Osteopenia: on Prolia Q 6 months. Her serum calcium is 10.5 today which is elevated. Her prior PTH was also elevated consistent is hyperparathyroidism. She is advised to hold calcium supplement and is following was special education paraprofessional at [facility]. Continue on Prolia. DEXA scan at [facility] on 06/06/2020 showed stable osteopenia 4. Family history of breast cancer : genetic testing sent in the past but results not available formy review ? 5. Famlial Spastic Paraparesis f/u with Dr Cody Gonzalez MD 01/18/2021 1:45 PM documented in this encounter Plan of Treatment Not on file documented as of this encounter Goals Goal Patient Goal Type Associated Problems Recent Progress Patient-Stated? 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 8:09 AM SPORTS STATISTICIAN) No Alisa Jaramillo HEMOGLOBIN A1C < 7.0 Result Component 5.4( 12:00 AM CDT) No Alisa Jaramilol documented as of this encounter Procedures Procedure Name Priority Date/Time Associated Diagnosis Comments CBC W AUTO DIFFERENTIAL (CANCER CARE) Routine 01/18/2021 10:58 AM CDT Malignant neoplasm of upper-outer quadrant of left breast in female, estrogen receptor positive (HCC) Osteopenia of multiple sites Use of aromatase inhibitors Iron deficiency anemia due to chronic blood loss RETIC COUNT Routine 01/18/2021 9:41 AM CDT Malignant neoplasm of upper-outer quadrant of left breast in female, estrogen receptor positive (HCC) Osteopenia of multiple sites Use of aromatase inhibitors Iron deficiency anemia due to chronic blood loss LDH BLOOD Routine 01/18/2021 9:41 AM CDT Malignant neoplasm of upper-outer quadrant of left breast in female, estrogen receptor positive (HCC) Osteopenia of multiple sites Use of aromatase inhibitors Iron deficiency anemia due to chronic blood loss BILIRUBIN TOTAL BLOOD Routine 01/18/2021 9:41 AM CDT Malignant neoplasm of upper-outer quadrant of left breast in female, estrogen receptor positive (HCC) Osteopenia of multiple sites Use of aromatase inhibitors Iron deficiency anemia due to chronic blood loss IRON + TRANSFERRIN PANEL Routine 01/18/2021 9:41 AM CDT Malignant neoplasm of upper-outer quadrant of left breast in female, estrogen receptor positive (HCC) Osteopenia of multiple sites Use of aromatase inhibitors Iron deficiency anemia due to chronic blood loss HAPTOGLOBIN Routine 01/18/2021 9:41 AM CDT Malignant neoplasm of upper-outer quadrant of left breast in female, estrogen receptor positive (HCC) Osteopenia of multiple sites Use of aromatase inhibitors Iron deficiency anemia due to chronic blood loss FERRITIN Routine 01/18/2021 9:41 AM CDT Malignant neoplasm of upper-outer quadrant of left breast in female, estrogen receptor positive (HCC) Osteopenia of multiple sites Use of aromatase inhibitors Iron deficiency anemia due to chronic blood loss documented in this encounter Results * (ABNORMAL) CBC W AUTO DIFFERENTIAL (CANCER CARE) (01/18/2021 10:58 AM CDT) WBC 11.5(H) 4.4 - 10.7 x10E9/L 01/18/2021 [...] - 34.0 pg 01/18/2021 11:04 AM CDT [facility] MCHC 29.1(L) 30.8 - 35.9 gm/dL 01/18/2021 11:04 AM CDT [facility] RDW-CV 19.8(H) 12.1 - 14.9 % 01/18/2021 11:04 AM CDT [facility] Platelet Count 408 153 - 416 x10E9/L 01/18/2021 11:04 AM CDT [facility] MPV 10.4 9.4 - 12.9 fl 01/18/2021 11:04 AM CDT [facility] Blood BLOOD SPECIMEN / Unknown 01/18/2021 10:58 AM CDT 01/18/2021 10:58 AM CDT Enrique Gonzalez MD LAB - HEMATOLOGY ORD ERABLES Performing Organization Address City/[facility] Co de Phone Number [facility] [address] [address] * (ABNORMAL) IRON + TRANSFERRIN PANEL (01/18/2021 9:41 AM CDT) Iron 21(L) 50 - 170 ug/dL [facility] INSURANCE BILL Transferrin 349 173 - 360 mg/dL [facility] INSURANCE BILL Comment: TIBC CALCULATED BLOOD (SSM) ??436 ?ug/dL ?240-450 SATURATION % BLOOD (SSM) ? 5 ?% ?20-50 ?L Blood BLOOD SPECIMEN / Unknown 01/18/2021 9:41 AM CDT 01/18/2021 Narrative Resulting Agency Comment Lab Testing performed at: [facility] [address] [facility] ?? [facility] [phone] Enrique Gonzalez MD LAB - CHEMISTRY ORDMaria E QUIROZ Performing Organization Address [facility]/ZIP Co de Phone Number [facility] INSURANCE BILL [address] [place] [address] * FERRITIN (01/18/2021 9:41 AM CDT) Ferritin 13 5 - 204 ng/mL [facility] INSURANCE BILL Blood BLOOD SPECIMEN / Unknown 01/18/2021 9:41 AM CDT 01/18/2021 Narrative Resulting Agency Comment Lab Testing performed at: [place] [address] [address] ?? [place] [phone] Enrique Gonzalez MD LAB - CHEMISTRY ROWAN QUIROZ [facility] INSURANCE BILL [address] [place] [address] * BILIRUBIN TOTAL BLOOD (01/18/2021 9:41 AM CDT) Bilirubin Total 0.2 0.2 - 1.2 mg/dL [facility] INSURANCE BILL Blood BLOOD SPECIMEN / Unknown 01/18/2021 9:41 AM CDT 01/18/2021 Narrative Resulting Agency Comment Lab Testing performed at: [place] [address] [address] ?? [place] [id number] Enrique Gonzalez MD LAB - CHEMISTRY ROWAN QUIROZ [facility] INSURANCE BILL [address] [place] [address] * HAPTOGLOBIN (01/18/2021 9:41 AM CDT) Haptoglobin 105 41 - 333 mg/dL [facility] INSURANCE BILL Blood BLOOD SPECIMEN / Unknown 01/18/2021 9:41 AM CDT 01/18/2021 Narrative Resulting Agency Comment [facility]: [facility] [address] ??[facility] [id number] Enrique Gonzalez MD LAB - CHEMISTRY ROWAN QUIROZ [facility] INSURANCE BILL [address] [place] [address] * (ABNORMAL) RETIC COUNT (01/18/2021 9:41 AM CDT) [facility] Reticulocyte Count 2.15(H) 0.5 - 1.7 % [facility] INSURANCE BILL Comment: RETICULOCYTE ABSOLUTE (SSM) ??0.1155 ? x10E6/uL ?H ??REFERENCE RANGE: 0.0041-0.0971 RETIC IMMATURE FRACTIONATED ??39.7 ? % ?0.9-14.3 ?? H HEMOGLOBIN RETIC PG BLOOD ( ??22.1 ? pg ? 27.8-36.8 ??L Blood BLOOD SPECIMEN / Unknown 01/18/2021 9:41 AM CDT 01/18/2021 Narrative Resulting Agency Comment Lab Testing performed at: [place] [address] ?? [place] [phone] Enrique Gonzalez MD LAB - HEMATOLOGY ORD ERABLES Performing Organization Address City/[facility]/ZIP Co de Phone Number [facility] INSURANCE BILL [address] [place] [address] * LDH BLOOD (01/18/2021 9:41 AM CDT) [facility] LDH 137 125 - 220 U/L [facility] INSURANCE BILL Blood BLOOD SPECIMEN / Unknown 01/18/2021 9:41 AM CDT 01/18/2021 Narrative Resulting Agency Comment Lab Testing performed at: [facility] [address] [address] ?? [place] [phone] Enrique Gonzalez MD LAB - CHEMISTRY ORDE RABMANE [facility] INSURANCE BILL [address] [place] [address] * (ABNORMAL) BASIC METABOLIC PANEL (CALCIUM TOTAL) (01/18/2021 9:41 AM CDT) Glucose 123(H) 70 - 105 mg/dL 01/18/2021 10:15 AM CDT [facility] Sodium 137 136 - 145 mmol/L 01/18/2021 10:15 AM CDT [facility] Potassium 4.2 3.5 - 5.1 mmol/L 01/18/2021 10:15 AM CDT [facility] Chloride 103 98 - 107 mmol/L 01/18/2021 10:15 AM CDT [facility] CO2 25 23 - 31 mmol/L 01/18/2021 10:15 AM CDT [facility] Calcium 10.6(H) 8.4 - 10.4 mg/dL 01/18/2021 10:15 AM CDT [facility] Anion Gap 9 8 - 18 mmol/L 01/18/2021 10:15 AM CDT [facility] BUN 26(H) 9.8 - 20.1 mg/dL 01/18/2021 10:15 AM CDT [facility] Creatinine 0.87 0.57 - 1.11 mg/dL 01/18/2021 10:15 AM CDT [facility] eGFR by MDRD >60 mL/min/1.7 3m2 01/18/2021 10:15 AM CDT [facility] eGFR by MDRD >60 mL/min/1.7 3m2 01/18/2021 10:15 AM CDT [facility] Blood BLOOD SPECIMEN / Unknown Venipuncture / Unknown 01/18/2021 9:41 AM CDT 01/18/2021 9:57 AM CDT Enrique Gonzalez MD LAB - CHEMISTRY ROWAN QUIROZ [facility] Organization Address City/State/ZIP Co de Phone Number [facility] [address] [place] [address] documented in this encounter Visit Diagnoses Diagnosis Malignant neoplasm of upper-outer quadrant of left breast in female, estrogen receptor positive (HCC)- Primary Osteopenia of multiple sites Use of aromatase inhibitors Iron deficiency anemia due to chronic blood loss Iron deficiency anemia secondary to blood loss (chronic) documented in this encounter Care Teams Bilingual Receptionist Relationship Specialty [place] [address] [place], [place] [id number] PCP - General Internal Medicine 03/31/18 05/30/22 Brooke Haynes APRN-[employer] [address] [place] [address] PCP - Attributed-MSSP 10/17/20 09/15/21 Etienne Florez MD Orthopedic Surgery 12/09/14 [place] [address] [place] [address] Oncology 09/15/17 [place] [address] [place] [address] Neurology 06/26/18 [place] [address] [facility] [address] [place] [address] Cardiovascular Disease 06/26/18 [place] [address] [address] Pulmonary Disease 06/26/18 Yuliya Ibarra MD [address] [facility] [address] [place] [address] Endocrinology 06/26/18 Phuong Callejas DPM [address] [place] [address] Podiatry 06/26/18 Sy Barrientos MD [address] [place] [address] [place] [address] Ophthalmology 06/26/18 [place] [address] [address] Pulmonary Disease 06/26/18 Rico Gasca MD [address] [facility] [address] [place] [address] Urology 06/26/18 Elle Landaverde MD [address] [facility] [address] [place] [address] [place] [address] Vascular Surgery 06/26/18 Kirk Truong MD [address] [id number] Gastroenterology 06/26/18 [place] [address] [facility] [address] [place] [address] General Surgery 06/26/18 [place] [address] [place] [address] Pulmonary Disease 11/10/20 documented as of this encounter
--- OUTSIDE RECORDS SUMMARY | 2024-05-26 12:35 | XMS_ITS | Encounter Summary ---
Author Organization [facility] Address [address] [place] [address] Care Team Providers Care Exposure Machine Operator Name Role Phone Etienne Florez MD Unavailable [phone] Enrique Gonzalez MD Unavailable [phone] Theresa Camargo MD Primary Care Provider Nelson Ross MD Unavailable Laz Valencia MD Unavailable Russell Moran MD Unavailable Yuliya Ibarra MD Unavailable Phuong Callejas DPM Unavailable [phone] Sy Barrientos MD Unavailable Russell Moran MD Unavailable Rico Gasca MD Unavailable Elle Landaverde MD Unavailable Kirk Truong MD Unavailable [phone] Shira Love DO Unavailable [phone] Brooke Haynes APRN-ZIPPER CUTTER Unavailable [phone] Reason for Visit * Reason Comments Follow-up Encounter Details Date Type Department Care Team (Trav[place] st Contact Info) Description 11/02/2020 9:00 AM CDT Office Visit [facility] [address] [facility] [address] [place] [address] Brooke Haynes APRN-CNP [address] [facility] [address] [place] [address] Irritable bowel syndrome, unspecified type (Primary Dx) Social History Tobacco Use Types Packs/Day Years [...] have Coronavirus / COVID-19? No / Unsure 10/25/2020 3:34 PM CDT documented as of this encounter Last Filed Vital Signs Vital Sign Reading Time Taken Comments Blood Pressure 110/60 11/02/2020 9:14 AM CDT Pulse 88 11/02/2020 9:14 AM CDT Temperature 35.3 ??C (95.5 ??F) 11/02/2020 9:14 AM CD T Respiratory Rate 20 11/02/2020 9:14 AM CDT Oxygen Saturation 98% 11/02/2020 9:14 AM CDT Inhaled Oxygen Concentration - - Weight 80.3 kg (177 lb) 11/02/2020 9:14 AM CDT Height 165.1 cm (5' 5 ) 11/02/2020 9:14 AM CDT Body Mass Index 29.45 11/02/2020 9:14 AM CDT documented in this encounter Functional [...] this encounter Patient Instructions * Patient Instructions* Brooke Haynes APRN-CNP - 11/02/2020 9:20 AM CDT If the fecal incontinence recurs again then call Dr. Truong for appt. Consider another MRI of the hip after you get an answer from the orthopaedic risk control specialist. Make appt with Dr. Camargo in a month. Tell the outpatient scheduler you must see Dr. Camargo. documented in this encounter Progress Notes * Brooke Haynse APRN-CNP - 11/02/2020 9:04 AM CDT SUBJECTIVE: Perla Leon is a 79 year old female here for: Chief Complaint Patient presents with ??? Follow-up Past Medical History: Diagnosis Date ??? Asthma [...] T1cN0(i-)M0, stage IA. ER pos 97% (strong), WA pos 23% (moderate), Her-2 neg (1+ on [...] Type 2 diabetes mellitus without complication 01/07/2011 HPI: Pt has had some fecal incontinence. Denies back pain. On eliquis. Wonders about side effect. LOTTIE Draper told her no, if not active could wait for today's appt. Not a side effect. She does have IBS. Feels some constipation but had BM yesterday. She is having PT at home weekly and they have recommended that she have someone with her for transfers so she does not fall and hit her head. Daughter called the orthopaedic oncologist and spoke at length to his sociology research assistant regarding follow upabout the gluteal hematoma suspected vs neoplasm. The sociology research assistant said she would check with doctor and get back with daughter but it has been 2 weeks and has not heard anything. The plan was to stop the blood thinner in September and then see the specialist and get repeat MRI but in the meantime she developed the PE and is now on eliquis. Denies any pain in the back, hip, buttocks at this time. When here in October we checked the Calcium that was still elevated and the vitamin d was okay. She isgoing to continue to hold the Calcium. Review of systems negative except as noted in the HPI Family and social history on file and reviewed. Current Outpatient Medications on File Prior to Visit Medication Sig Dispense Refill ??? albuterol HFA (PROAIR HFA) 108 (90 BASE) MCG/ACT inhaler Take 2 Puffs by mouth every 4 hours asneeded. ??? amitriptyline (ELAVIL) 25 MG tablet TAKE 2 TABLETS BY MOUTH EVERY DAY AT BEDTIME 60 tablet 5 ??? 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 apixaban (ELIQUIS) 5 MG tablet Take 1 (one) tablet by mouth 2 times daily Take 10 mg po bid till 10/05 and then continue 5 mg po bid there after 60 tablet 11 ??? BD PEN NEEDLE HAYDEN U/F 32G X 4 MM MISC USE TO INJECT INSULIN ONCE DAILY ??? calcium-vitamin D (OS-MCKENNA 500 + D) 500-200 mg-unit tablet Take 1 (one) tablet by mouth 2 times daily with morning and evening meal ??? canagliflozin (INVOKANA) 100 MG tablet Take 100 mg by mouth daily before breakfast ??? Cranberry-Vitamin C (AZO CRANBERRY URINARY TRACT) 250-60 MG Take 2 tablets by mouth once daily ??? Cyanocobalamin (B-12) 1000 MCG TBCR Take by mouth once daily. ??? denosumab (PROLIA) 60 MG/ML SC injection Inject 60 mg subcutaneously Every 180 days ??? dorzolamide (TRUSOPT) 2 % ophthalmic solution Instill 1 drop into both eyes 2 times daily ??? esomeprazole (NEXIUM) 40 MG capsule TAKE 1 CAPSULE DAILY 90 capsule 2 ??? flecainide (TAMBOCOR) 50 MG tablet Take 50 mg by mouth 2 times daily ??? FREESTYLE LITE STRIPS test strip [...] Units subcutaneously once daily ??? levothyroxine (SYNTHROID) 50 MCG tablet Take 50 mcg by mouth daily before breakfast ??? metOLazone (ZAROXOLYN) 2.5 MG tablet Take 2.5 mg by mouth Take 1 tab twice a week on Friday and ??? multivitamin with iron (ONE A DAY WITH IRON) tablet Take 1 Tab by mouth once daily. ??? potassium chloride ER (KLOR-CON) 20 MEQ tablet TAKE 1 TABLET BY MOUTH FOUR TIMES A DAY 120 tablet 3 ??? PROLENSA 0.07 % opthalmic solution Instill 1 drop into right eye once daily 2 ??? rosuvastatin (CRESTOR) 10 MG tablet Take 1 tablet by mouth at bedtime 90 tablet 2 ??? SITagliptin (JANUVIA) 100 MG tablet Take 100 mg by mouth once daily ??? spironolactone (ALDACTONE) 25 MG tablet Take 25 mg by mouth once daily ??? verapamil SR 24hr (VERELAN) 120 MG capsule Take 120 mg by mouth at bedtime ??? vitamin D3 (CHOLECALCIFEROL) 25 MCG (1000 UNITS) tablet Take 1,000 Units by mouth once daily ??? Wheat Dextrin (BENEFIBER PO) Take 1 packet by mouth once daily No current facility-administered medications on file prior to visit. Allergies Allergen Reactions ??? Advair Diskus YEAS INFECTION ??? Aricept [Donepezil] Other I dont remember ??? Diltiazem Swelling Patient takes verapamil as home med -2020 ??? Metformin Diarrhea ??? Black Pepper [Piper Longum] Unknown ??? Fluticasone Diarrhea ??? Salmeterol Diarrhea ??? Sotalol Other Hair loss Social History Tobacco Use ??? Smoking status: Never Smoker ??? Smokeless tobacco: Never Used Substance Use Topics ??? Alcohol use: No Alcohol/week: 0.0 standard drinks . OBJECTIVE: Vitals: 11/02/20 0914 BP: 110/60 Pulse: 88 Resp: 20 Temp: (!) 95.5 ??F (35.3 ??C) SpO2: 98% Weight: 80.3 kg (177 lb) Height: 1.651 m (5' 5 ) Body mass index is 29.45 kg/m??. General appearance - alert, well appearing, and in no distress Psych - alert and oriented to person, place, and time, normal affect ENT -Eyes: conjunctiva clear, no drainage. Ears: tm right pearly mcdaniel, positive light reflex, landmarks present; tm left pearly mcdaniel, positive light reflex, landmarks present. Nose: pink turbinates, clear drainage. Frontal and maxillary sinuses not tender to palpation. Throat: pink, moist mucous membranes, tonsils not enlarged. Neck - trachea midline, no thyromegaly, supple, full range of motion Lymph - no significant lymphadenopathy in the head, neck nor supraclavicular region. Lungs - unlabored, clear to auscultation, no wheezes, rales or rhonchi, symmetric air entry Negative egophony, good anterior forced expiration without coarseness nor wheezing, negative fremitus. Heart - normal rate, regular rhythm, normal S1, S2, 3/6 murmur, present previously, no rubs, clicksor gallops, no edema, peripheral pulses normal, no carotid bruits. Abdomen - bowel sounds present, soft, nontender, nondistended, no masses or hepatosplenomegaly Extremities - Unsteady gait, full range of motion, no clubbing nor cyanosis. Skin - warm, dry, no rashes in visible areas. Neuro - PERRLA, CN ll through Xll intact. ASSESSMENT Encounter Diagnosis Name Primary? Irritable bowel syndrome, unspecified type Yes PLAN: No orders of the defined types were placed in this encounter. If the fecal incontinence recurs again then call Dr. Truong for appt. Consider another MRI of the hip after you get an answer from the orthopaedic risk control specialist. Make appt with Dr. Camargo in a month. Tell the outpatient scheduler you must see Dr. Camargo. Further recommendations pending the above results and patient's clinical course. Follow-up visit 1 month. The patient indicates understanding of these issues and agrees with the plan. documented in this encounter Plan of Treatment Not on file documented as of this encounter Goals Goal Patient Goal Type Associated Problems Recent Progress Patient-Stated? 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 8:09 AM EQUIPMENT TESTER) No Alisa Jaramillo HEMOGLOBIN A1C < 7.0 Result Component 5.4( 12:00 AM CDT) No Alisa Jaramillo documented as of this encounter Visit Diagnoses Diagnosis Irritable bowel syndrome, unspecified type- Primary documented in this encounter Care Teams Exposure Machine Operator Relationship Specialty [place] [address] [facility] [address] [place] [address] PCP - General Internal Medicine 03/31/18 05/30/22 Brooke Haynes APRN-CNP [address] [facility] [address] [place] [address] PCP - Attributed-MSSP 10/17/20 09/15/21 Etienne Florez MD Orthopedic Surgery 12/09/14 [place] [address] [phone] Oncology 09/15/17 [place] [address] [phone] Neurology 06/26/18 [place] [address] [facility] [address] [place] [address] Cardiovascular Disease 06/26/18 Russell Moran MD [address] [place] [address] Pulmonary Disease 06/26/18 Yuliya Ibarra MD [address] [facility] [address] [place] [phone] Endocrinology 06/26/18 Phuong Callejas DPM [address] [place], [place] [id number] Podiatry 06/26/18 Sy Barrientos MD [address] [place] [address] [place] [address] Ophthalmology 06/26/18 Russell Moran MD [address] [place] [address] Pulmonary Disease 06/26/18 Rico Gasca MD [address] [facility] [address] [place] [address] Urology 06/26/18 Elle Landaverde MD [address] [facility] [address] [place] [address] Vascular Surgery 06/26/18 Kirk Truong MD [address] [facility] [address] [place] [address] Gastroenterology 06/26/18 [place] [address] [address] [place] [address] General Surgery 06/26/18 documented as of this encounter
--- OUTSIDE RECORDS SUMMARY | 2024-05-26 12:35 | XMS_ITS | Encounter Summary ---
Author Organization [facility] Address [address] [facility] [address] Care Team Providers Care Exterminator Termite Name Role Phone Etienne Florez MD Unavailable Enrique Gonzalez MD Unavailable [phone] Theresa Camargo MD Primary Care Provider [phone] Nelson Ross MD Unavailable Laz Valencia MD Unavailable Russell Moran MD Unavailable Yuliya Ibarra MD Unavailable Phuong Callejas DPM Unavailable Sy Barrientos MD Unavailable Russell Moran MD Unavailable Rico Gasca MD Unavailable [phone] Elle Landaverde MD Unavailable Kirk Truong MD Unavailable [phone] Shira Love DO Unavailable [phone] Sara Schultz MD Unavailable [phone] Brooke Haynes CRUSHER OPERATOR-OFFICE CASHIER Unavailable [phone] Encounter Details Date Type Department Care Team (Late st Contact Info) Description 12/14/2020 Orders Only [facility] - Family Medicine [address] [facility] [address] [place] [address] Brooke Haynes, CRUSHER OPERATOR-OFFICE CASHIER [address] [facility] [address] [place] [address] Hypothyroidism due to acquired atrophy of thyroid Social History Tobacco Use Types Packs/Day Years [...] have Coronavirus / COVID-19? No / Unsure 12/08/2020 11:13 AM CDT documented as of this encounter [...] Type Priority Associated Diagnoses Orde r Schedule TSH Lab Routine Hypothyroidism due to acquired atrophy of thyroid Ordered: 12/14/2020 documented as of this encounter Goals Goal Patient Goal Type Associated Problems Recent Progress Patient-Stated? Author Blood Pressure < 140/90 Blood Pressure 127/52(01/12/ 2023 8:09 AM MEAT SOAKER) No Alisa Jaramillo HEMOGLOBIN A1C < 7.0 Result Component 5.4( 1 12:00 AM CDT) No Alisa Jaramillo documented as of this encounter Visit Diagnoses Diagnosis Hypothyroidism due to acquired atrophy of thyroid- Primary documented in this encounter Care Teams Exterminator Termite Relationship Specialty [place] [address] [facility] [address] [place] [address] PCP - General Internal Medicine 03/31/18 05/30/22 Brooke Haynes, CRUSHER OPERATOR-OFFICE CASHIER [address] [facility] [address] [place] [address] PCP - Attributed-MSSP 10/17/20 09/15/21 Etienne Florez MD Orthopedic Surgery 12/09/14 [place] [address] [facility] [address] [place] [address] Oncology 09/15/17 [place] [address] [facility] [address] [place] [address] Neurology 06/26/18 [place] [address] [facility] [address] [place] [phone] Cardiovascular Disease 06/26/18 [place] [address] [address] Pulmonary Disease 06/26/18 Yuliya Ibarra MD [address] [place] [address] Endocrinology 06/26/18 Phuong Callejas DPM [address] [place] [address] Podiatry 06/26/18 Sy Barrientos MD [address] [place] [address] [place] [address] Ophthalmology 06/26/18 [place] [address] [address] Pulmonary Disease 06/26/18 Rico Gasca MD [address] [facility] [address] [place] [address] Urology 06/26/18 Elle Landaverde MD [address] [facility] [address] [place] [address] Vascular Surgery 06/26/18 Kirk Truong MD [address] [facility] [address] [place] [address] Gastroenterology 06/26/18 [place] [address] [facility] [address] [place] [address] General Surgery 06/26/18 [place] [address] [place] [address] Pulmonary Disease 11/10/20 documented as of this encounter
--- OUTSIDE RECORDS SUMMARY | 2024-05-26 12:35 | XMS_ITS | Encounter Summary ---
Author Organization [facility] Address [address] [place] [address] Care Team Providers Care Key Attendant Name Role Phone Etienne Florez MD Unavailable Enrique Gonzalez MD Unavailable [phone] Theresa Camargo MD Primary Care Provider Nelson Ross MD Unavailable [phone] Laz Valencia MD Unavailable Russell Moran MD Unavailable [phone] Yuliya Ibarra MD Unavailable Phuong Callejas DPM Unavailable Sy Barrientos MD Unavailable Russell Moran MD Unavailable Rico Gasca MD Unavailable Elle Landaverde MD Unavailable [phone] Kirk Truong MD Unavailable [phone] Shira Love DO Unavailable Sara Schultz MD Unavailable [phone] Ivy Brooke [facility] Unavailable [phone] Reason for Visit * Reason Onset Date Comments Scheduling 02/01/2021 Hospital Follow-up 02/01/2021 Encounter Details Date Type Department Care Team (Late st Contact Info) Description 02/01/2021 Telephone [facility] - Family Medicine [address] [facility] [employer] [address] [place] [address] [place] [address] [facility] [address] [place] [address] Scheduling; Hospital Follow-up Social History Tobacco Use Types Packs/Day Years [...] encounter Miscellaneous Notes * Telephone Encounter - Jina Haskins - 02/02/2021 11:15 AM CDT Can you please schedule a video visit for this patient * Telephone Encounter - Milton Naidu - 02/01/2021 3:08 PM CDT Can it be a video visit since its a hospital fu? * Telephone Encounter - SamuelMushtaq Brandi - 02/01/2021 2:44 PM CDT Who is calling? Bekah (patient daughter ) on hipaa What is the reason for call? Bekah would like a call back to schedule a hospital follow up video visit with Declined REMOTELY OPERATED VEHICLE ([facility]/Dizziness) Expected Response from the Clinic? Call back [phone] documented in this encounter Plan of Treatment Not on file documented as of this encounter Goals Goal Patient Goal Type Associated Problems Recent Progress Patient-Stated? 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 8:09 AM PRODUCE ASSOCIATE) No Alisa Jaramillo HEMOGLOBIN A1C < 7.0 Result Component 5.4( 12:00 AM CDT) No Alisa Jaramillo documented as of this encounter Visit Diagnoses Not on filedocumented in this encounter Care Teams Key Attendant Relationship Specialty [place] [address] [place] [address] PCP - General Internal Medicine 03/31/18 05/30/22 Brooke Haynes, YAEL-OBSTETRICS GYNECOLOGY PHYSICIAN [address] [place] [address] PCP - Attributed-MSSP 10/17/20 09/15/21 Etienne Florez MD Orthopedic Surgery 12/09/14 [place] [address] [address] [place] [address] Oncology 09/15/17 [place] [address] [facility] [address] [place] [address] Neurology 06/26/18 [place] [address] [facility] [address] [place] [address] Cardiovascular Disease 06/26/18 [place] [address] [place] [id number] Pulmonary Disease 06/26/18 Yuliya Ibarra MD [address] [facility] [address] [place] [address] Endocrinology 06/26/18 Phuong Callejas DPM [address] [place] [address] Podiatry 06/26/18 Sy Barrientos MD [address] [place] [address] [place] [address] Ophthalmology 06/26/18 [place] [address] [address] Pulmonary Disease 06/26/18 Rico Gasca MD [address] [facility] [address] [place] [address] Urology 06/26/18 Elle Landaverde MD [address] [facility] [address] [place] [address] Vascular Surgery 06/26/18 Kirk Truong MD [address] [facility] [address] [place] [address] Gastroenterology 06/26/18 [place] [address] [facility] [address] [place] [address] General Surgery 06/26/18 [place] [address] [facility] [address] [place] [address] Pulmonary Disease 11/10/20 documented as of this encounter
--- OUTSIDE RECORDS SUMMARY | 2024-05-26 12:35 | XMS_ITS | Encounter Summary ---
Author Organization [facility] Address [address] [place] [address] Care Team Providers Care Musical Instrument Maker Or Repairer Name Role Phone Etienne Florez MD Unavailable Enrique Gonzalez MD Unavailable [phone] Theresa Camargo MD Primary Care Provider [phone] Nelson Ross MD Unavailable Laz Valencia MD Unavailable Russell Moran MD Unavailable [phone] Yuliya Ibarra MD Unavailable [phone] Phuong Callejas DPM Unavailable [phone] Sy Barrientos MD Unavailable [phone] Russell Moran MD Unavailable Rico Gasca MD Unavailable Elle Landaverde MD Unavailable Kirk Truong MD Unavailable [phone] Shira Love DO Unavailable [phone] Sara Schultz MD Unavailable [phone] Brooke Haynes APRN-SARA Unavailable [phone] Reason for Visit * Reason Onset Date Comments Results 01/08/2021 Encounter Details Date Type Department Care Team (Late st Contact Info) Description 01/08/2021 Telephone [facility] Medical [facility] - Family Medicine [address] [facility] [address] [place] [address] Brooke Haynes APRN-CNP [address] [place] [address] Results Social History Tobacco Use Types Packs/Day Years [...] encounter Miscellaneous Notes * Telephone Encounter - Brooke Haynes APRN-CNP - 01/08/2021 2:12 PM CDT Pt had appt today but it was cancelled. Callling as the CBC is stable. Blood sugar, looks a little dry The potassium is low today. The calcium is about the same, do not start calcium. Take one extra potassium and we should recheck in a week. Left message with Ange Reyes and calling pt. No answer on pt's highlighted cell phone so calling home number. randi message on home phone. documented in this encounter Plan of Treatment Scheduled Orders Name Type Priority Associated Diagnoses Orde r Schedule BASIC METABOLIC PANEL (BMP) Lab Routine Hypokalemia Hyperparathyroidism (HCC) Ordered: 01/08/2021 documented as of this encounter Goals Goal Patient Goal Type Associated Problems Recent Progress Patient-Stated? 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 8:09 AM CRANE HOOKER) No Alisa Jaramillo HEMOGLOBIN A1C < 7.0 Result Component 5.4( 12:00 AM CDT) No Alisa Jaramillo documented as of this encounter Procedures Procedure Name Priority Date/Time Associated Diagnosis Comments PTH INTACT Routine 01/18/2021 12:00 AM CDT Hyperparathyroidism (HCC) CALCIUM IONIZED BLOOD Routine 01/18/2021 12:00 AM CDT Hyperparathyroidism (HCC) documented in this encounter Results * (ABNORMAL) PTH INTACT (01/18/2021 12:00 AM CDT) PTH Intact 85(H) 15 - 65 pg/mL [facility] ACCOUNT BILL Blood BLOOD SPECIMEN / Unknown 01/18/2021 01/19/2021 Narrative Resulting Agency Comment Lab Testing performed at: [facility] [address] [facility] ??[facility] [id number] Brooke [place] LAB - CHEMISTRY ORDERABLES [facility] ACCOUNT BILL [address] [place] [address] * CALCIUM IONIZED BLOOD (01/18/2021 12:00 AM CDT) Calculatedium Ionized Calculated mg/dL 5.6 4.5 - 5.6 mg/dL [facility] INSURANCE BILL Blood BLOOD SPECIMEN / Unknown 01/18/2021 01/19/2021 Narrative Resulting Agency Comment Lab Testing performed at: [facility] [address] ??[facility] [id number] Brooke Haynes APRN-PROGRAM MANUFACTURING LEADER LAB - CHEMISTRY ORDERABLES [facility] INSURANCE BILL [address] [place] [address] documented in this encounter Visit Diagnoses Diagnosis Hypokalemia- Primary Hypopotassemia Hyperparathyroidism (HCC) Hypercalcemia documented in this encounter Care Teams Musical Instrument Maker Or Repairer Relationship Specialty [place] [address] [id number] PCP - General Internal Medicine 03/31/18 05/30/22 Brooke Haynes APRN-PROGRAM MANUFACTURING LEADER [address] [facility] [address] [place] [address] PCP - Attributed-MSSP 10/17/20 09/15/21 Etienne Florez MD Orthopedic Surgery 12/09/14 [place] [address] [facility] [address] [place] [address] Oncology 09/15/17 [place] [address] [address] Neurology 06/26/18 [place] [address] [address] Cardiovascular Disease 06/26/18 [place] [address] [id number] Pulmonary Disease 06/26/18 Yuliya Ibarra MD [address] [place] [address] Endocrinology 06/26/18 Phuong Callejas DPM [address] [place] [address] Podiatry 06/26/18 Sy Barrientos MD [address] [place] [address] [place] [address] Ophthalmology 06/26/18 [place] [address] [address] Pulmonary Disease 06/26/18 Rico Gasca MD [address] [place] [address] Urology 06/26/18 Elle Landaverde MD [address] [place] [address] Vascular Surgery 06/26/18 Kirk Truong MD [address] [place] [address] Gastroenterology 06/26/18 [place] [address] [facility] [address] [place] [address] General Surgery 06/26/18 [place] [address] [facility] [address] [place] [address] Pulmonary Disease 11/10/20 documented as of this encounter
--- OUTSIDE RECORDS SUMMARY | 2024-05-26 12:35 | XMS_ITS | Encounter Summary ---
Author Organization [facility] Address [address] [place] [address] Care Team Providers Care Roller Setter Name Role Phone Etienne Florez MD Unavailable Enrique Gonzalez MD Unavailable [phone] Theresa Camargo MD Primary Care Provider Nelson Ross MD Unavailable [phone] Laz Valencia MD Unavailable Russell Moran MD Unavailable [phone] Yuliya Ibarra MD Unavailable [phone] Phuong Callejas DPM Unavailable Sy Barrientos MD Unavailable [phone] Russell Moran MD Unavailable Rico Gasca MD Unavailable Elle Landaverde MD Unavailable Kirk Truong MD Unavailable [phone] Shira Love DO Unavailable [phone] Sara Schultz MD Unavailable [phone] Brooke [facility] Unavailable [phone] Reason for Visit * Reason Onset Date Comments Referral 11/17/2020 Encounter Details Date Type Department Care Team (Late st Contact Info) Description 11/17/2020 Telephone [facility] Medical [facility] - Family Medicine [address] [facility] [address] [place] [address] [place] [address] [facility] [address] [place] [address] Referral Social History Tobacco Use Types Packs/Day [...] PM CDT documented as of this encounter Functional [...] encounter Miscellaneous Notes * Telephone Encounter - Tien Back MA - 11/21/2020 9:38 AM CDT Called [facility] and left relaying that Dr. Camargo provided verbal okay for 2 more weeks of PT. * Telephone Encounter - Theresa Camargo MD - 11/21/2020 8:24 AM CDT Okay for 2 more weeks as requested. * Telephone Encounter - Nell Bruce - 11/17/2020 1:37 PM CDT Who is calling? Malou from [facility] What is the reason for call? Requesting two more visits for maintained physical therapy. Expected Response from the Clinic? Asking for two more visits please for this patient documented in this encounter Plan of Treatment Not on file documented as of this encounter Goals Goal Patient Goal Type Associated Problems Recent Progress Patient-Stated? 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 8:09 AM MATTRESS RENOVATOR) No Alisa Jaramillo HEMOGLOBIN A1C < 7.0 Result Component 5.4( 12:00 AM CDT) No Alisa Jaramillo documented as of this encounter Visit Diagnoses Not on filedocumented in this encounter Care Teams Roller Setter Relationship Specialty [place] [address] [place] [address] PCP - General Internal Medicine 03/31/18 05/30/22 Brooke Haynes, YAEL-SOFTWARE MAINTENANCE ENGINEER [address] [place] [address] PCP - Attributed-MSSP 10/17/20 09/15/21 Etienne Florez MD Orthopedic Surgery 12/09/14 [place] [address] [facility] [address] [place] [address] Oncology 09/15/17 [place] [address] [phone] Neurology 06/26/18 [place] [address] [facility] [address] [place] [address] Cardiovascular Disease 06/26/18 Russell Moran MD [address] [place] [address] Pulmonary Disease 06/26/18 Yuliya Ibarra MD [address] [facility] [address] [place] [address] Endocrinology 06/26/18 Phuong Callejas DPM [address] [place], [place] [address] Podiatry 06/26/18 Sy Barrientos MD [address] [place] [address] [place] [address] Ophthalmology 06/26/18 Russell Moran MD [address] [place] [address] Pulmonary Disease 06/26/18 Rico Gasca MD [address] [facility] [address] [place] [address] Urology 06/26/18 Elle Landaverde MD [address] [facility] [address], [place] [address] Vascular Surgery 06/26/18 Kirk Truong MD [address] [address] Gastroenterology 06/26/18 [place] [address] [facility] [address] [place] [address] General Surgery 06/26/18 [place] [address] [facility] [address] [place] [address] Pulmonary Disease 11/10/20 documented as of this encounter
--- OUTSIDE RECORDS SUMMARY | 2024-05-26 12:35 | XMS_ITS | Encounter Summary ---
Author Organization [facility] Address [address] [facility] [place] [address] Care Team Providers Care Datastage Developer Name Role Phone Etienne Florez MD Unavailable [phone] Enrique Gonzalez MD Unavailable [phone] Theresa Camargo MD Primary Care Provider [phone] Nelson Ross MD Unavailable Laz Valencia MD Unavailable Russell Moran MD Unavailable [phone] Yuliya Ibarra MD Unavailable Phuong Callejas DPM Unavailable [phone] Sy Barrientos MD Unavailable Russell Moran MD Unavailable [phone] Rico Gasca MD Unavailable [phone] Elle Landaverde MD Unavailable Kirk Truong MD Unavailable [phone] Shira Love DO Unavailable [phone] Sara Schultz MD Unavailable [phone] Brooke Haynes APRN-[facility] Unavailable [phone] Encounter Details Date Type Department Care Team (Latest Contact Info) Description 12/08/2020 9:55 AM CDT - 12/08/2020 11:59 PM CDT Hospital Encounter [facility] - Laboratory [address] [place] [address] [place] [address] [address] Discharge Disposition: Home or Self [...] mouth once daily 90 tablet 2 07/04/2020 multivitamin with iron (ONE A DAY WITH IRON) tablet Take 1 Tab by mouth once daily. PROLENSA 0.07 % opthalmic solution Instill 1 drop into right eye once daily 2 02/25/2019 SITagliptin (JANUVIA) 100 MG tablet Take 100 mg by mouth once daily spironolactone (ALDACTONE) 25 MG tablet Take 25 mg by mouth once daily vitamin D3 (CHOLECALCIFEROL) 25 MCG (1000 UNITS) tablet Take 1,000 Units by mouth once daily albuterol HFA (PROAIR HFA) 108 (90 BASE) MCG/ACT inhaler Take 2 Puffs by mouth every 4 hours as needed. 12/29/2020 amitriptyline (ELAVIL) 25 MG tablet TAKE 2 [...] mouth once daily 03/06/2021 BD PEN NEEDLE HAYDEN U/F 32G X 4 MM MISC USE TO INJECT INSULIN ONCE DAILY 05/05/2020 05/21/2022 calcium-vitamin D (OS-MCKENNA 500 + D) 500-200 mg-unit tablet Take 1 (one) tablet by mouth 2 times daily with morning and evening meal 09/29/2020 12/29/2020 canagliflozin (INVOKANA) 100 MG tablet Take 100 mg by mouth daily before breakfast 07/21/2019 ciprofloxacin (CIPRO) 250 MG tablet Take 1 (one) tablet by mouth 2 times daily for 5 days 10 tablet 12/08/2020 12/13/2020 Cranberry-Vitamin C (AZO CRANBERRY URINARY TRACT) 250-60 MG Take 2 tablets by mouth once daily 05/21/2022 Cyanocobalamin 1000 MCG Take by mouth once daily. 05/21/2022 denosumab (PROLIA) 60 MG/ML SC injection Inject 60 mg subcutaneously Every 180 days 05/30/2022 esomeprazole (NEXIUM) 40 MG capsule TAKE 1 CAPSULE DAILY 90 capsule 2 06/28/2020 03/06/2021 FREESTYLE LITE STRIPS test strip TEST BLOOD SUGARS THREE TIMES A DAY 05/05/2020 05/21/2022 glimepiride (AMARYL) 1 MG tablet Take 1 mg by mouth 3 times daily 2 tabs in the AM, 2 tabs at noon and 1 tab at bedtime 05/21/2022 insulin glargine (LANTUS) pen Inject 12 (twelve) Units subcutaneously every morning 05/30/2022 levothyroxine (SYNTHROID) 50 MCG tablet Take 50 mcg by mouth daily before breakfast 05/22/2020 metOLazone (ZAROXOLYN) 2.5 MG tablet Take 1 tablet by mouth twice a week on Friday and 05/30/2022 potassium chloride ER (KLOR-CON) 20 MEQ tablet TAKE 1 TABLET BY MOUTH FOUR TIMES A DAY 360 tablet 2 12/01/2020 05/21/2022 rosuvastatin (CRESTOR) 10 MG tablet Take 1 tablet by mouth at bedtime 90 tablet 2 05/03/2020 08/10/2021 sulfamethoxazole-tr imethoprim (BACTRIM DS; SEPTRA DS) 800-160 MG tablet Take 1 (one) tablet by mouth 2 times daily for 7 days 14 tablet 12/07/2020 12/14/2020 verapamil SR 24hr (VERELAN) 120 MG capsule [...] < 140/90 Blood Pressure 127/52(2022 8:09 AM PHYSICS PROFESSOR) No Alisa Jaramillo HEMOGLOBIN A1C < 7.0 Result Component 5.4( 12:00 AM CDT) No Clint Alisa documented as of this encounter Procedures Procedure Name Priority Date/Time Associated Diagnosis Comments BASIC METABOLIC PANEL (CALCIUM TOTAL) STAT 12/08/2020 10:00 AM CDT Malignant neoplasm of upper-outer quadrant of left breast in female, estrogen receptor positive (HCC) documented in this encounter Results * (ABNORMAL) BASIC METABOLIC PANEL (CALCIUM TOTAL) (12/08/2020 10:00 AM CDT) Glucose 168(H) 70 - 105 mg/dL 12/08/2020 10:34 AM CDT [facility] Sodium 134(L) 136 - 145 mmol/L 12/08/2020 10:34 AM CDT [facility] Potassium 3.2(L) 3.5 - 5.1 mmol/L 12/08/2020 10:34 AM CDT [facility] Chloride 97(L) 98 - 107 mmol/L 12/08/2020 10:34 AM CDT [facility] CO2 25 23 - 31 mmol/L 12/08/2020 10:34 AM CDT [facility] Calcium 11.1(H) 8.4 - 10.4 mg/dL 12/08/2020 10:34 AM CDT [facility] Anion Gap 12 8 - 18 mmol/L 12/08/2020 10:34 AM CDT [facility] BUN 37(H) 9.8 - 20.1 mg/dL 12/08/2020 10:34 AM CDT [facility] Creatinine 0.95 0.57 - 1.11 mg/dL 12/08/2020 10:34 AM CDT [facility] eGFR by MDRD 56 mL/min/1.7 3m2 12/08/2020 10:34 AM CDT [facility] eGFR by MDRD >60 mL/min/1.7 3m2 12/08/2020 10:34 AM CDT [facility] Blood BLOOD SPECIMEN / Unknown Venipuncture / Unknown 12/08/2020 10:00 AM CDT 12/08/2020 10:19 AM CDT Enrique Gonzalez MD LAB - CHEMISTRY ROWAN QUIROZ [facility] [address] [place], [place] [id number] documented in this encounter Visit Diagnoses Diagnosis Malignant neoplasm of upper-outer quadrant of left breast in female, estrogen receptor positive (HCC) documented in this encounter Care Teams Datastage Developer Relationship Specialty [place] [address] [place] [address] PCP - General Internal Medicine 03/31/18 05/30/22 Brooke Haynes, [employer]S ADMINISTRATOR [address] [facility] [facility] [address] [place] [address] PCP - Attributed-MSSP 10/17/20 09/15/21 Etienne Florez MD Orthopedic Surgery 12/09/14 [place] [address] [facility] [address] [place] [address] Oncology 09/15/17 [place] [address] [facility] [address] [place] [address] Neurology 06/26/18 [place] [address] [facility] [address] [place] [address] Cardiovascular Disease 06/26/18 [place] [address] [facility] [address] [place] [address] Pulmonary Disease 06/26/18 Yuliya Ibarra MD [address] [place] [address] Endocrinology 06/26/18 Phuong Callejas DPM [address] [place] [address] Podiatry 06/26/18 Sy Barrientos MD [address] [place] [address] [place] [address] Ophthalmology 06/26/18 [place] [address] [address] Pulmonary Disease 06/26/18 Rico Gasca MD [address] [facility] [address] [place] [address] Urology 06/26/18 Elle Landaverde MD [address] [facility] [address] [place] [address] Vascular Surgery 06/26/18 Kirk Truong MD [address] [facility] [address] [place] [address] Gastroenterology 06/26/18 [place] [address] [facility] [address] [place] [address] General Surgery 06/26/18 [place] [address] [place] [address] Pulmonary Disease 11/10/20 documented as of this encounter
--- OUTSIDE RECORDS SUMMARY | 2024-05-26 12:35 | XMS_ITS | Encounter Summary ---
Author Organization [facility] Address [address] [facility] [place] [address] Care Team Providers Care Integrated Program Teacher Name Role Phone Etienne Florez MD Unavailable Enrique Gonzalez MD Unavailable [phone] Theresa Camargo MD Primary Care Provider Nelson Ross MD Unavailable [phone] Laz Valencia MD Unavailable Russell Moran MD Unavailable Yuliya Ibarra MD Unavailable [phone] Phuong Callejas DPM Unavailable Sy Barrientos MD Unavailable Russell Moran MD Unavailable Rico Gasca MD Unavailable Elle Landaverde MD Unavailable Kirk Truong MD Unavailable [phone] Shira Love DO Unavailable [phone] Sara Schultz MD Unavailable [phone] [facility] Unavailable [phone] Reason for Visit * Reason Onset Date Comments Female Genitourinary 12/07/2020 Encounter Details Date Type Department Care Team (Late st Contact Info) Description 12/07/2020 Telephone [facility] [address] [facility] [address] [place] [address] [place] [address] [facility] [address] [place] [address] Female Genitourinary Social History Tobacco Use Types Packs/Day Years [...] as of this encounter Miscellaneous Notes * Addendum Note - Bonny Ballesteros APRN-CNP - 12/07/2020 4:30 PM CDTAddended by: BONNY BALLESTEROS on: 12/07/2020 04:30 PM Modules accepted: Orders * Telephone Encounter - Bonny Ballesteros APRN-CNP - 12/07/2020 4:30 PM CDT RX for bactrim sent UA shows infection OV if not better * Telephone Encounter - Tien Back MA - 12/07/2020 2:54 PM CDT Brandi with [facility] called to report pts UA result. She is faxing lab result now. Please look and call in antibiotic. She is on blood thinner. documented in this encounter Plan of Treatment Not on file documented as of this encounter Goals Goal Patient Goal Type Associated Problems Recent Progress Patient-Stated? 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 8:09 AM TRANSIT MECHANIC) No Alisa Jaramillo HEMOGLOBIN A1C < 7.0 Result Component 5.4( 12:00 AM CDT) No Alisa Jaramillo documented as of this encounter Visit Diagnoses Not on filedocumented in this encounter Care Teams Integrated Program Teacher Relationship Specialty Start [place] [address] [facility] [address] [place] [address] PCP - General Internal Medicine 03/31/18 05/30/22 Brooke Haynes APRN-CNP [address] [facility] [address] [place] [address] PCP - Attributed-MSSP 10/17/20 09/15/21 Etienne Florez MD Orthopedic Surgery 12/09/14 [place] [address] [facility] [address] [place] [address] Oncology 09/15/17 [place] [address] [facility] [address] [place] [address] Neurology 06/26/18 [place] [address] [facility] [address] [place] [address] Cardiovascular Disease 06/26/18 [place] [address] [place] [address] Pulmonary Disease 06/26/18 Yuliya Ibarra MD [address] [facility] [address] [place] [address] Endocrinology 06/26/18 Phuong Callejas DPM [address] [place], [place] [address] Podiatry 06/26/18 Sy Barrientos MD [address] [place] [address] [place] [address] Ophthalmology 06/26/18 [place] [address] [address] Pulmonary Disease 06/26/18 Rico Gasca MD [address] [place] [address] Urology 06/26/18 Elle Landaverde MD [address] [place] [address] Vascular Surgery 06/26/18 Kirk Truong MD [address] [place] [address] [address] [place] [address] Gastroenterology 06/26/18 [place] [address] [facility] [address] [place] [address] General Surgery 06/26/18 [place] [address] [facility] [address] [place] [address] Pulmonary Disease 11/10/20 documented as of this encounter
--- OUTSIDE RECORDS SUMMARY | 2024-05-26 12:35 | XMS_ITS | Encounter Summary ---
Author Organization [facility] Address [address] [facility] [place] [address] Care Team Providers Care Factory Supervisor Name Role Phone Etienne Florez MD Unavailable Enrique Gonzalez MD Unavailable [phone] Theresa Camargo MD Primary Care Provider Nelson Ross MD Unavailable [phone] Laz Valencia MD Unavailable Russell Moran MD Unavailable Yuliya Ibarra MD Unavailable [phone] Phuong Callejas DPM Unavailable Sy Barrientos MD Unavailable [phone] Russell Moran MD Unavailable [phone] Rico Gasca MD Unavailable Elle Landaverde MD Unavailable Kirk Truong MD Unavailable [phone] Shira Love DO Unavailable [phone] Asha Narvaez TRAINING PROGRAM MANAGER-REPAIR TECHNICIAN Unavailable [phone] Reason for Visit * Reason Comments Hospital Follow-up cor pulmonale due to saddle PE. Encounter Details Date Type Department Care Team (Late st Contact Info) Description 10/12/2020 11:00 AM CDT Office Visit [facility] Family Medicine [address] [facility] [address] [place] [address] Brooke Haynes APRN-REPAIR TECHNICIAN [address] [facility] [address] [place] [address] Cor pulmonale (HCC) (Primary Dx); 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 (HCC); Hypercalcemia; Vitamin D deficiency Social History Tobacco Use Types Packs/Day Years [...] have Coronavirus / COVID-19? No / Unsure 09/25/2020 1:05 PM CDT documented as of this encounter Last Filed Vital Signs Vital Sign Reading Time Taken Comments Blood Pressure 110/60 10/12/2020 11:18 AM CDT Pulse 76 10/12/2020 11:18 AM CDT Temperature 36.6 ??C (97.9 ??F) 10/12/2020 11:18 AM C DT Respiratory Rate 20 10/12/2020 11:18 AM CDT Oxygen Saturation 96% 10/12/2020 11:18 AM CDT Inhaled Oxygen Concentration - - Weight 80.3 kg (177 lb) 10/12/2020 11:18 AM CDT Height 165.1 cm (5' 5 ) 10/12/2020 11:18 AM CDT Body Mass Index 29.45 10/12/2020 11:18 AM CDT documented in this encounter Functional [...] * Patient Instructions* Brooke Haynes APRN-CNP - 10/12/2020 11:32 AM CDT Continue home care. Continue eliquis. No plavix. Follow up with Dr. Valencia, cardiology. Follow up with pulmonology, Dr Schultz on 11-10-2020, 5th floor. Keep follow up with Dr. Camargo. We are checking labs today, [address] in [address]. We will contact you with results. documented in this encounter Progress Notes * Brooke Haynes APRN-CNP - 10/12/2020 11:34 AM CDT SUBJECTIVE: Perla Leon is a 79 year old female here for: Chief Complaint Patient presents with ??? Hospital Follow-up cor pulmonale due to saddle PE. Past Medical History: Diagnosis Date ??? Asthma [...] T1cN0(i-)M0, stage IA. ER pos 97% (strong), NM pos 23% (moderate), Her-2 neg (1+ on [...] diabetes mellitus without complication 01/07/2011 HPI: Pt was in the office on 09-26-2020 and was having shortness of breath the day before and felt bad, when here she felt a little better but was still short of breath and could not speak in full sentences. Chart was reviewed: She was sent to the ER and found to have saddle PE. She had a procedure to vacuum out the clot. Placed on eliquis. She had been taken off the previous blood thinners as she had a hematoma in the right buttocks and was needing to see an ortho/oncologist and was to have a MRI after beinf off the blood thinner but then she had the life threatening PE. She was discharged on plavix and eliquis but there were [employer] messages to Dr. uW and Dr. Camargo and she is only to be on the eliquis. Her calcium was elevated in the hospital and through reading [employer] messages pt needs to have it checked today. Home care is in the home with SN and PT. Has to make appt with Dr. Valencia and has upcoming appt with Dr. Schultz. Has upcoming appt with Dr. Camargo on 10-23-2020. She is feeling better, denies shortnes s Review of systems negative except as noted [...] Alcohol/week: 0.0 standard drinks . OBJECTIVE: Vitals: 10/12/20 1118 BP: 110/60 Pulse: 76 Resp: 20 Temp: 97.9 ??F (36.6 ??C) SpO2: 96% Weight: 80.3 kg (177 lb) Height: 1.651 [...] Throat: pink, moist mucous membranes, tonsils not enlarged, Neck - trachea midline, no thyromegaly, supple, full range of motion Lymph - no significant lymphadenopathy in the head, neck nor supraclavicular region. Lungs - unlabored, clear to auscultation, no wheezes, rales or rhonchi, symmetric air entry Negative egophony, good anterior forced expiration without coarseness nor wheezing, negative fremitus. Heart - normal rate, regular rhythm, normal S1, S2, 3/6 known murmur, no rubs, clicks or gallops, no edema, peripheral pulses normal, no carotid bruits. Abdomen - bowel sounds present, soft, nontender, nondistended, no masses or hepatosplenomegaly Extremities - unsteady gait, full range of motion, no clubbing nor cyanosis. Skin - warm, dry, no rashes in visible areas. Neuro - PERRLA, CN ll through Xll intact. ASSESSMENT Encounter Diagnoses Name Primary? Cor pulmonale Yes ??? 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 ??? Hypercalcemia ??? Vitamin D deficiency PLAN: Orders Placed This Encounter ??? VITAMIN D 25-HYDROXY Order Specific Question: Release to patient Answer: Immediate ??? BASIC METABOLIC PANEL (CALCIUM TOTAL) Order Specific Question: Release to patient Answer: Immediate ??? CALCIUM IONIZED BLOOD Order Specific Question: Release to patient Answer: Immediate ??? PTH INTACT Order Specific Question: Release to patient Answer: Immediate ??? apixaban (ELIQUIS) 5 MG tablet Sig: Take 1 (one) tablet by mouth 2 times daily Take 10 mg po bid till 10/05 and then continue 5 mgpo bid there after Dispense: 60 tablet Refill: 11 Continue home care. Continue eliquis. No plavix. Follow up with Dr. Valencia, cardiology. Follow up with pulmonology, Dr Schultz on 11-10-2020, 5th floor. Keep follow up with Dr. Camargo. We are checking labs today, [address] in [address]. We will contact you with results. Further recommendations pending the above results and patient's clinical course. Follow-up visit 10-23-2020 The patient indicates understanding of these issues and agrees with the plan. documented in this encounter Plan of Treatment Not on file documented as of this encounter Goals Goal Patient Goal Type Associated Problems Recent Progress Patient-Stated? 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 8:09 AM ANODIC TREATER) No Alisa Jaramillo HEMOGLOBIN A1C < 7.0 Result Component 5.4( 12:00 AM CDT) No Alisa Jaramillo documented as of this encounter Procedures Procedure Name Priority Date/Time Associated Diagnosis Comments PTH INTACT Routine 10/12/2020 12:09 PM CDT Hypercalcemia VITAMIN D 25-HYDROXY Routine 10/12/2020 12:09 PM CDT Vitamin D deficiency BASIC METABOLIC PANEL (CALCIUM TOTAL) Routine 10/12/2020 12:09 PM CDT Hypercalcemia CALCIUM IONIZED BLOOD Routine 10/12/2020 12:09 PM CDT Hypercalcemia documented in this encounter Results * (ABNORMAL) PTH INTACT (10/12/2020 12:09 PM CDT) PTH Intact 67(H) 15 - 65 pg/mL [facility] INSURANCE BILL Blood BLOOD SPECIMEN / Unknown 10/12/2020 12:09 PM CDT 10/12/2020 Narrative Resulting Agency Comment Lab Testing performed at: [facility] [address] ??[facility] [id number] Brooke Haynes APRN-REPAIR TECHNICIAN LAB - CHEMISTRY ORDERABLES [facility] INSURANCE BILL [address] [place] [address] * (ABNORMAL) CALCIUM IONIZED BLOOD (10/12/2020 12:09 PM CDT) Calculatedium Ionized Calculated mg/dL 6.2(H) 4.5 - 5.6 mg/dL [facility] INSURANCE BILL Blood BLOOD SPECIMEN / Unknown 10/12/2020 12:09 PM CDT 10/12/2020 Narrative Resulting Agency Comment Lab Testing performed at: [facility] [address] ??[facility] [id number] Brooke Haynes TRAINING PROGRAM MANAGER-REPAIR TECHNICIAN LAB - CHEMISTRY ORDERABLES [facility] INSURANCE BILL [address] [place] [address] * (ABNORMAL) BASIC METABOLIC PANEL (CALCIUM TOTAL) (10/12/2020 12:09 PM CDT) Glucose 110(H) 70 - 105 mg/dL [facility] INSURANCE BILL BUN 35(H) 9.8 - 20.1 mg/dL [facility] INSURANCE BILL Creatinine 1.00 0.57 - 1.11 mg/dL [facility] INSURANCE BILL eGFR by MDRD 53 mL/min/1.7 3m2 [facility] INSURANCE BILL eGFR by MDRD >60 mL/min/1.7 3m2 [facility] INSURANCE BILL Sodium 136 136 - 145 mmol/L [facility] INSURANCE BILL Potassium 3.4(L) 3.5 - 5.1 mmol/L [facility] INSURANCE BILL Chloride 98 98 - 107 mmol/L [facility] INSURANCE BILL CO2 26 23 - 31 mmol/L [facility] INSURANCE BILL Calcium 10.8(H) 8.4 - 10.4 mg/dL [facility] INSURANCE BILL Blood BLOOD SPECIMEN / Unknown 10/12/2020 12:09 PM CDT 10/12/2020 Narrative Resulting Agency Comment Lab Testing performed at: [address] ?? [facility] [id number] Brooke Haynes TRAINING PROGRAM MANAGER-REPAIR TECHNICIAN LAB - CHEMISTRY ORDERABLES [facility] INSURANCE BILL [address] [place] [address] * VITAMIN D 25-HYDROXY (10/12/2020 12:09 PM CDT) Vitamin D, 25 Hydroxy 33.8 30 - 100 ng/mL [facility] INSURANCE BILL Comment: Vitamin D Status: ?Deficiency ? <20 ? ng/mL ?Insufficiency ?? 20-30 ??ng/mL ?Sufficiency ? 30-100 ng/mL ?Toxicity ? >100 ?ng/mL Blood BLOOD SPECIMEN / Unknown 10/12/2020 12:09 PM CDT 10/12/2020 Narrative Resulting Agency Comment Lab Testing performed at: [facility] [address] ?? [facility] [id number] Brooke Ivy TRAINING PROGRAM MANAGER-REPAIR TECHNICIAN LAB - CHEMISTRY ORDERABLES [facility] INSURANCE BILL [address] [place] [address] documented in this encounter Visit Diagnoses Diagnosis Cor pulmonale (HCC)- Primary Chronic pulmonary heart disease, unspecified 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 (HCC) Hypercalcemia Vitamin D deficiency documented in this encounter Care Teams Factory Supervisor Relationship Specialty Start [place] [address] [facility] [address] [place] [address] PCP - General Internal Medicine 03/31/18 05/30/22 Asha Narvaez APRN-REPAIR TECHNICIAN [address] [facility] [address] [place] [address] PCP - Attributed-MSSP 08/17/20 10/16/20 Etienne Florez MD Orthopedic Surgery 12/09/14 [place] [address] [phone] Oncology 09/15/17 [place] [address] [facility] [address] [place] [phone] Neurology 06/26/18 [place] [address] [facility] [address] [place] [phone] Cardiovascular Disease 06/26/18 [place] [address] [id number] Pulmonary Disease 06/26/18 Yuliya Ibarra MD [address] [place] [address] Endocrinology 06/26/18 Phuong Callejas DPM [address] [place] [address] Podiatry 06/26/18 Sy Barrientos MD [address] [place] [address] [place] [address] Ophthalmology 06/26/18 [place] [address] [address] Pulmonary Disease 06/26/18 Rico Gasca MD [address] [facility] [address] [place] [address] Urology 06/26/18 Elle Landaverde MD [address] [facility] [address] [place] [address] Vascular Surgery 06/26/18 Kirk Truong MD [address] [facility] [address] [place] [address] Gastroenterology 06/26/18 [place] [address] [place] [phone] General Surgery 06/26/18 documented as of this encounter
--- OUTSIDE RECORDS SUMMARY | 2024-05-26 12:35 | XMS_ITS | Encounter Summary ---
Author Organization [facility] Address [address] [facility] [place] [address] Care Team Providers Care Lunch Counter Manager Name Role Phone Etienne Florez MD Unavailable Enrique Gonzalez MD Unavailable [phone] Theresa Camargo MD Primary Care Provider [phone] Nelson Ross MD Unavailable Laz Valencia MD Unavailable Russell Moran MD Unavailable Yuliya Ibarra MD Unavailable Phuong Callejas DPM Unavailable Sy Barrientos MD Unavailable Russell Moran MD Unavailable [phone] Rico Gasca MD Unavailable Elle Landaverde MD Unavailable Kirk Truong MD Unavailable [phone] Shira Love DO Unavailable [phone] Sara Schultz MD Unavailable [phone] Ivy Bro[facility] Unavailable [phone] Reason for Visit * Reason Comments Follow-up Encounter Details Date Type Department Care Team (Late st Contact Info) Description 02/19/2021 10:20 AM CDT Video Visit [facility] [address] [facility] [place] [address] [place] [address] [address] Malignant neoplasm of upper-outer quadrant of left breast in female, estrogen receptor positive (HCC) ; Osteopenia of multiple sites; Use of aromatase [...] Sign Reading Time Taken Comments Blood Pressure - - Pulse - - Temperature - - Respiratory Rate - - Oxygen Saturation - - Inhaled Oxygen Concentration - - Weight 76.2 kg (168 lb) 02/19/2021 10:47 AM CDT Height 165.1 cm (5' 5 ) 02/19/2021 10:47 AM CDT Body Mass Index 27.96 02/19/2021 10:47 AM CDT documented in this encounter Functional [...] this encounter Patient Instructions * Patient Instructions* Ernique Gonzalez MD - 02/19/2021 10:57 AM CDT RTC on 06/15/2021 with CBC, Ferritin + iron studies, COMP STAT and for prolia documented in this encounter Progress Notes * Enrique Gonzalez MD - 02/19/2021 10:48 AM CDT Today's visit was conducted virtually due [...] Follow Up Note Date of Follow Up: 02/19/2021 Patient Name:??Perla Leon??is a 80??y.o. Female ??= 1940 ? Surgeon:?Dr Shira Love? PCP: Jarrell Garrison MD ? 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 Arimidex 1 mg po daily started on 09/17/17 Prolia 60 mg SQ Q 6 months started??on 01/14/18 ? C/C: Patient recently hospitalized in OSH for significant iron deficiency anemia came in for CBC check and follow-up ? HPI: Perlamainor Leon??is an 80 ??y.o.?? woman with history [...] 01/14/18. She had another DEXA scan at [facility] on 06/06/2020 and showed still osteopenia. Cross referenced seeing the T-score on current bone density to the 1 from October 2017, she appears to have stable bone density. Will continue on Prolia. Her serum calcium level is elevated (Ca= 10.5 mg/dl) due to hyperparathyroidism. She also has hypothyroidism and is following with an highway design engineer at [facility]. She was hospitalized at [facility] from 12/20 - 12/28/20 for his [...] IV iron infusion on 02/09 and 02/16/2021. He is feeling much better at present Medical History Past Medical History: Diagnosis Date [...] T1cN0(i-)M0, stage IA. ER pos 97% (strong), TN pos 23% (moderate), Her-2 neg (1+ on [...] ECOG 3 PS Physical Exam N/A Labs Recent Labs Component Name 01/18/21 1058 [...] on 02/09 as well as 02/16/2021 - if her H&H drops further, colonoscopy and capsule endoscopy may be the next step - will monitor her CBC in May 2021 2. Malignant neoplasm of upper-outer quadrant of [...] hold calcium supplement and is following was highway design engineer at [facility]. Continue on Prolia. DEXA scan at [facility] on 06/06/2020 showed stable osteopenia 4. Family history of breast cancer : genetic testing sent in the past but results not available formy review ? 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 8:09 AM TEST WORKER) No Alisa Jaramillo HEMOGLOBIN A1C < [...] (chronic) documented in this encounter Care Teams Lunch Counter Manager Relationship Specialty Start [place] [address] [facility] [address] [place] [address] PCP - General Internal Medicine 03/31/18 05/30/22 Brooke Haynes APRN-MEAT AND SEAFOOD MANAGER [address] [facility] [address] [place] [address] PCP - Attributed-MSSP 10/17/20 09/15/21 Etienne Florez MD Orthopedic Surgery 12/09/14 [place] [address] [facility] [address] [place] [address] Oncology 09/15/17 [place] [address] [facility] [address] [place] [address] Neurology 06/26/18 [place] [address] [facility] [address] [place] [address] Cardiovascular Disease 06/26/18 Russell Moran MD [address] [place] [address] Pulmonary Disease 06/26/18 Yuliya Ibarra MD [address] [facility] [address] [place] [address] Endocrinology 06/26/18 Phuong Callejas DPM [address] [place], [place] [id number] Podiatry 06/26/18 Sy Barrientos MD [address] [place] [address] Ophthalmology 06/26/18 [place] [address] [address] Pulmonary Disease 06/26/18 Rico Gasca MD [address] [facility] [address] [place] [address] Urology 06/26/18 Elle Landaverde MD [address] [place] [address] Vascular Surgery 06/26/18 Kirk Truong MD [address] [facility] [address] [place] [address] Gastroenterology 06/26/18 [place] [address] [facility] [address] [place] [address] General Surgery 06/26/18 [place] [address] [facility] [address] [place] [address] Pulmonary Disease 11/10/20 documented as of this encounter
--- OUTSIDE RECORDS SUMMARY | 2024-05-26 12:35 | XMS_ITS | Encounter Summary ---
Author Organization [facility] Address [address] [facility] [place] [address] Care Team Providers Care Phlebotomy Director Name Role Phone Etienne Florez MD Unavailable Enrique Gonzalez MD Unavailable [phone] Theresa Camargo MD Primary Care Provider [phone] Nelson Ross MD Unavailable Laz Valencia MD Unavailable Russell Moran MD Unavailable Yuliya Ibarra MD Unavailable [phone] Phuong Callejas DPM Unavailable Sy Barrientos MD Unavailable [phone] Russell Moran MD Unavailable Rico Gasca MD Unavailable Elle Landaverde MD Unavailable Kirk Truong MD Unavailable [phone] Shira Love DO Unavailable [phone] Sara Schultz MD Unavailable [phone] Brooke Haynes YAEL-ANALYSIS SPECIALIST Unavailable [phone] Encounter Details Date Type Department Care Team (Late st Contact Info) Description 03/12/2021 Orders Only [facility] Health Neurosciences [address] [facility] [address] [place] [address] [place] [address] [place] [address] Memory loss Social History Tobacco Use Types Packs/Day [...] < 140/90 Blood Pressure 127/52(2022 8:09 AM DATABASE DBA) No Alisa Jaramillo HEMOGLOBIN A1C < 7.0 Result Component 5.4( 12:00 AM CDT) No Alisa Jaramillo documented as of this encounter Visit Diagnoses Diagnosis Memory loss documented in this encounter Care Teams Phlebotomy Director Relationship Specialty Start [place] [address] [facility] [address] [place] [address] PCP - General Internal Medicine 03/31/18 05/30/22 Brooke Haynes APRN-ANALYSIS SPECIALIST [address] [facility] [address] [place] [address] PCP - Attributed-MSSP 10/17/20 09/15/21 Etienne Florez MD Orthopedic Surgery 12/09/14 [place] [address] [facility] [address] [place] [address] Oncology 09/15/17 [place] [address] [facility] [address] [place] [address] Neurology 06/26/18 [place] [address] [facility] [address] [place] [address] Cardiovascular Disease 06/26/18 [place] [address] [id number] Pulmonary Disease 06/26/18 Yuliya Ibarra MD [address] [facility] [address] [place] [phone] Endocrinology 06/26/18 Phuong Callejas DPM [address] [place], [place] [phone] Podiatry 06/26/18 Sy Barrientos MD [address] [place] [address] Ophthalmology 06/26/18 [place] [address] [address] Pulmonary Disease 06/26/18 Rico Gasca MD [address] [facility] [address] [place] [address] Urology 06/26/18 Elle Landaverde MD [address] [facility] [address] [place] [address] Vascular Surgery 06/26/18 Kirk Truong MD [address] [facility] [address] [place] [address] Gastroenterology 06/26/18 [place] [address] [place] [address] General Surgery 06/26/18 [place] [address] [place], [place] [phone] Pulmonary Disease 11/10/20 documented as of this encounter
--- OUTSIDE RECORDS SUMMARY | 2024-05-26 12:35 | XMS_ITS | Encounter Summary ---
Author Organization [facility] Address [address] [facility] [address] [address] [place] [address] Care Team Providers Care Laborer Yard Name Role Phone Etienne Florez MD Unavailable Enrique Gonzalez MD Unavailable [phone] Theresa Camargo MD Primary Care Provider Nelson Ross MD Unavailable Laz Valencia MD Unavailable Russell Moran MD Unavailable [phone] Yuliya Ibarra MD Unavailable Phuong Callejas DPM Unavailable Sy Barrientos MD Unavailable Russell Moran MD Unavailable Rico Gasca MD Unavailable Elle Landaverde MD Unavailable [phone] Kirk Truong MD Unavailable [phone] Shira Love DO Unavailable [phone] Sara Schultz MD Unavailable [phone] SteveBrooke barnes [facility] Unavailable [phone] Reason for Visit * Reason Onset Date Comments Diarrhea 12/29/2020 Encounter Details Date Type Department Care Team (Late st Contact Info) Description 12/29/2020 Telephone [facility] Medical [facility] - Family Medicine [address] [facility] [address] [place] [address] [place] [address] [facility] [address] [place] [address] Diarrhea Social History Tobacco Use Types Packs/Day Years [...] encounter Miscellaneous Notes * Telephone Encounter - LesliBonnyMURPHY - 01/01/2021 8:20 AM CDT Daughter notified of Dr. Camargo recommendations She should stay off the Linzess for now. ??Let her stools come back to normal. The Linzess was ordered by GI in the hospital She will also call and talk to the GI MD about this today ?? * Telephone Encounter - Tien Back MA - 12/29/2020 3:21 PM CDT Pts daughter called in regards to medication questions. Current medication from discharge is causing pt to have severe amount of stool coming out when making a bowel movement. They said she is havingexplosions. The nurse directed pt to stop taking Linzess and all laxatives. Wants to know how this should work because she will be admitted for the same problem again if RX's are stopped. Requesting call from PCP or CHAIR CAR DRIVER. documented in this encounter Plan of Treatment Not on file documented as of this encounter Goals Goal Patient Goal Type Associated Problems Recent Progress Patient-Stated? 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 8:09 AM TOPLINE BEADING MACHINE TENDER) No Alisa Jaramillo HEMOGLOBIN A1C < 7.0 Result Component 5.4( 12:00 AM CDT) No Alisa Jaramillo documented as of this encounter Visit Diagnoses Not on filedocumented in this encounter Care Teams Laborer Yard Relationship Specialty [place] [address] [facility] [address] [place], [place] [id number] PCP - General Internal Medicine 03/31/18 05/30/22 Brooke Haynes APRN-CNP [address] [facility] [address] [place], [place] [id number] PCP - Attributed-MSSP 10/17/20 09/15/21 Etienne Florez MD Orthopedic Surgery 12/09/14 [place] [address] [place] [address] Oncology 09/15/17 [place] [address] [place] [address] Neurology 06/26/18 [place] [address] [facility] [address] [place] [address] Cardiovascular Disease 06/26/18 Russell Moran MD [address] [place] [address] Pulmonary Disease 06/26/18 Yuliya Ibarra MD [address] [facility] [address] [place] [address] Endocrinology 06/26/18 Phuong Callejas DPM [address] [place] [address] Podiatry 06/26/18 Sy Barrientos MD [address] [place] [address] [place] [address] Ophthalmology 06/26/18 Russell Moran MD [address] [place] [address] Pulmonary Disease 06/26/18 Rico Gasca MD [address] [facility] [address] [place] [address] Urology 06/26/18 Elle Landaverde MD [address] [facility] [address] [place] [address] Vascular Surgery 06/26/18 Kirk Truong MD [address] [facility] [address] [place] [address] Gastroenterology 06/26/18 [place] [address] [facility] [address] [place] [address] General Surgery 06/26/18 [place] [address] [facility] [address] [place] [address] Pulmonary Disease 11/10/20 documented as of this encounter
--- OUTSIDE RECORDS SUMMARY | 2024-05-26 12:35 | XMS_ITS | Encounter Summary ---
Author Organization [facility] Address [address] [facility] [place] [address] Care Team Providers Care Human Resources Receptionist Name Role Phone Etienne Florez MD Unavailable Enrique Gonzalez MD Unavailable [phone] Theresa Camargo MD Primary Care Provider [phone] Nelson Ross MD Unavailable Laz Valencia MD Unavailable Russell Moran MD Unavailable Yuliya Ibarra MD Unavailable Phuong Callejas DPM Unavailable Sy Barrientos MD Unavailable Russell Moran MD Unavailable Rico Gasca MD Unavailable Elle Landaverde MD Unavailable [phone] Kirk Truong MD Unavailable [phone] Shira Love DO Unavailable [phone] IvyBrooke YAEL-SENIOR WINDOWS SYSTEMS ENGINEER Unavailable [phone] Encounter Details Date Type Department Care Team (Latest Contact Info) Description 10/25/2020 Travel Social History Tobacco Use Types Packs/Day [...] 140/90 Blood Pressure 127/52(2022 8:09 AM PIT CRANE OPERATOR) No Alisa Jaramillo HEMOGLOBIN A1C < 7.0 Result Component 5.4( 12:00 AM CDT) No Alisa Jaramillo documented as of this encounter Visit Diagnoses Not on filedocumented in this encounter Care Teams Human Resources Receptionist Relationship Specialty [place] [address] [address] PCP - General Internal Medicine 03/31/18 05/30/22 Brooke Haynes, SANITARY INSPECTOR-SENIOR WINDOWS SYSTEMS ENGINEER [address] [facility] [address] [place] [address] PCP - Attributed-MSSP 10/17/20 09/15/21 Etienne Florez MD Orthopedic Surgery 12/09/14 [place] [address] [place] [address] Oncology 09/15/17 [place] [address] [facility] [address] [place] [address] Neurology 06/26/18 [place] [address] [facility] [address] [place] [address] Cardiovascular Disease 06/26/18 [place] [address] [id number] Pulmonary Disease 06/26/18 Yuliya Ibarra MD [address] [facility] [address] [place] [address] Endocrinology 06/26/18 Phuong Callejas DPM [address] [place] [address] Podiatry 06/26/18 Sy Barrientos MD [address] [place] [address] [place] [address] Ophthalmology 06/26/18 [place] [address] [place] [address] [place] [address] Pulmonary Disease 06/26/18 Rico Gasca MD [address] [address] Urology 06/26/18 Elle Landaverde MD [address] [address] Vascular Surgery 06/26/18 Kirk Truong MD [address] [address] Gastroenterology 06/26/18 [place] [address] [place] [address] [place] [address] General Surgery 06/26/18 documented as of this encounter
--- OUTSIDE RECORDS SUMMARY | 2024-05-26 12:35 | XMS_ITS | Encounter Summary ---
Author Organization [facility] Address [address] [facility] [place] [address] Care Team Providers Care Security Monitor Name Role Phone Etienne Florez MD Unavailable Enrique Gonzalez MD Unavailable [phone] Theresa Camargo MD Primary Care Provider Nelson Ross MD Unavailable Laz Valencia MD Unavailable Russell Moran MD Unavailable Yuliya Ibarra MD Unavailable [phone] Phunog Callejas DPM Unavailable [phone] Sy Barrientos MD Unavailable [phone] Russell Moran MD Unavailable Rico Gasca MD Unavailable Elle Landaverde MD Unavailable [phone] Kirk Truong MD Unavailable [phone] Shira Love DO Unavailable [phone] IvyBrooke YAEL-TRAIN EXAMINER Unavailable [phone] Encounter Details Date Type Department Care Team (Latest Contact Info) Description 10/24/2020 Travel Social History Tobacco Use Types Packs/Day [...] have Coronavirus / COVID-19? No / Unsure 10/24/2020 4:31 PM CDT documented as of this encounter [...] < 140/90 Blood Pressure 127/52(2022 8:09 AM HOSE BUILDER) No Alisa Jaramillo HEMOGLOBIN A1C < 7.0 Result Component 5.4( 12:00 AM CDT) No Alisa Jaramillo documented as of this encounter Visit Diagnoses Not on filedocumented in this encounter Care Teams Security Monitor Relationship Specialty Start [place] [address] [address] PCP - General Internal Medicine 03/31/18 05/30/22 Brooke Haynes, MASON HELPER-TRAIN EXAMINER [address] [facility] [address] [place] [address] PCP - Attributed-MSSP 10/17/20 09/15/21 Etienne Florez MD Orthopedic Surgery 12/09/14 [place] [address] [place] [address] Oncology 09/15/17 [place] [address] [facility] [address] [place] [address] Neurology 06/26/18 [place] [address] [facility] [address] [place] [address] Cardiovascular Disease 06/26/18 [place] [address] [id number] Pulmonary Disease 06/26/18 Yuliya Ibarra MD [address] [facility] [address] [place] [address] Endocrinology 06/26/18 Phuong Callejas DPM [address] [place] [address] Podiatry 06/26/18 Sy Barrientos MD [address] [place] [address] [place] [address] Ophthalmology 06/26/18 [place] [address] [place] [address] [place] [address] Pulmonary Disease 06/26/18 Rico Gasca MD [address] [address] Urology 06/26/18 Elle Landaverde MD [address] [address] Vascular Surgery 06/26/18 Kirk Turong MD [address] [address] Gastroenterology 06/26/18 [place] [address] [place] [address] [place] [address] General Surgery 06/26/18 documented as of this encounter
--- OUTSIDE RECORDS SUMMARY | 2024-05-26 12:35 | XMS_ITS | Encounter Summary ---
Author Organization [facility] Address [address] [facility] [place] [address] Care Team Providers Care Account Support Rep Name Role Phone Etienne Florez MD Unavailable Enrique Gonzalez MD Unavailable [phone] Theresa Camargo MD Primary Care Provider Nelson Ross MD Unavailable Laz Valencia MD Unavailable Russell Moran MD Unavailable Yuliya Ibarra MD Unavailable Phuong Callejas DPM Unavailable Sy Barrientos MD Unavailable Russell Moran MD Unavailable Rico Gasca MD Unavailable Elle Landaverde MD Unavailable Kirk Truong MD Unavailable Shira Love DO Unavailable [phone] Sara Schultz MD Unavailable [phone] Kasie Haynesecroseann [facility] Unavailable [phone] Reason for Visit * Reason Comments Follow-up Encounter Details Date Type Department Care Team (Late st Contact Info) Description 12/08/2020 10:20 AM CDT Office Visit [facility] [address] [place] [address] [place] [address] [address] Malignant neoplasm of upper-outer quadrant of left breast in female, estrogen receptor positive (HCC) (Primary Dx); Osteopenia of multiple sites; Use of aromatase inhibitors; Class 2 obesity with body mass index (BMI) of 35.0 to 35.9 in adult, unspecified obesity type, unspecified whether serious comorbidity present; Osteopenia of neck of femur, unspecified laterality; Hypokalemia Social History Tobacco Use Types Packs/Day Years [...] Sign Reading Time Taken Comments Blood Pressure 107/40 12/08/2020 10:37 AM CDT Pulse 78 12/08/2020 10:37 AM CDT Temperature 35.8 ??C (96.5 ??F) 12/08/2020 1 0:37 AM CDT Respiratory Rate 20 12/08/2020 10:3 7 AM CDT Oxygen Saturation 95% 12/08/2020 10: 37 AM CDT Inhaled Oxygen Concentration - - Weight 76.6 kg (168 lb 12.8 oz) 021 10:37 AM CDT Height 165.1 cm (5' 5 ) 12/08/2020 10:3 7 AM CDT Body Mass Index 28.09 12/08/2020 10:37 AM CDT documented in this encounter Functional [...] * Patient Instructions* Enrique Gonzalez MD - 12/08/2020 10:54 AM CDT Prolia today Mammogram in 02/2021 RTC in 6 months with BMP documented in this encounter Progress Notes * Enrique Gonzalez MD - 12/08/2020 10:43 AM CDT Oncology Clinic Follow Up Note Date of Follow Up: 12/08/2020 Patient Name:??Perla Leon??is a 80??y.o. Female ??= 1940 ? Surgeon:?Dr Shira Love? PCP: Jarrell Garrison MD ? 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 Arimidex 1 mg po daily started on 09/17/17 Prolia 60 mg SQ Q 6 months started??on 01/14/18 ? HPI: Perla Leon??is an 80 ??y.o.?? [...] 01/14/18. She had another DEXA scan at [facility] on 06/06/2020 and showed still osteopenia. Cross referenced seeing the T-score on current bone density to the 1 from October 2017, she appears to have stable bone density. Will continue on Prolia. Her serum calcium level is elevated (Ca= 10.5 mg/dl) due to hyperparathyroidism. She also has hypothyroidism and is following with an manager technical sales at [facility]. Her recent serum potassium levels have been low and she is on KCL po replacement. Medical History Past Medical History: Diagnosis Date [...] T1cN0(i-)M0, stage IA. ER pos 97% (strong), CT pos 23% (moderate), Her-2 neg (1+ on [...] HPI. ECOG 3 PS Physical Exam BP 107/40 (BP SITE: LEFT ARM, BP POSITION: SITTING, BP CUFF SIZE: 11) Pulse 78 Temp 96.5 ??F (35.8 ??C) (Temporal) Resp 20 Ht 5' 5 (1.651 m) Wt 168 lb 12.8 oz (76.6 kg) SpO2 95% BMI 28.09 kg/m2 GENERAL: Wheel chair bound, in no [...] NEURO: Alert & Oriented x 3. Labs Component Latest Ref Rng & Units 06/09/2020 Glucose 70 - 105 mg/dL 220 (H) Sodium 136 - 145 mmol/L 137 Potassium 3.5 - 5.1 mmol/L 4.3 Chloride 98 - 107 mmol/L 100 CO2 23 - 31 mmol/L 28 Calcium 8.4 - 10.4 mg/dL 10.5 (H) Anion Gap 8 - 18 mmol/L 9 BUN 9.8 - 20.1 mg/dL 26 (H) Creatinine 0.57 - 1.11 mg/dL 1.12 (H) eGFR by MDRD mL/min/1.73m2 47 eGFR by MDRD mL/min/1.73m2 57 Assessment & Plan ? 1. Malignant neoplasm of upper-outer quadrant of left [...] like to continue on annual mammogram and will be schedule coming February 2021 2. Osteopenia: on Prolia Q 6 months. Her serum calcium is 10.5 today which is elevated. Her prior PTH was also elevated consistent is hyperparathyroidism. She is advised to hold calcium supplement and is following was manager technical sales at [facility]. Continue on Prolia. DEXA scan at [facility] on 06/06/2020 showed stable osteopenia 3. Family history of breast cancer : genetic testing sent in the past but results not available formy review ? 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 Hypokalemia: Continue on KCl p.o. ?? RTC in 6 months for follow up with BMP Enrique Gonzalez MD 12/08/2020 11:08 AM documented in this encounter Plan of Treatment Not on file documented as of this encounter Goals Goal Patient Goal Type Associated Problems Recent Progress Patient-Stated? 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 8:09 AM GRAVITY PROSPECTING OPERATOR) No Alisa Jaramillo HEMOGLOBIN A1C < 7.0 Result Component 5.4( 12:00 AM CDT) No Alisa Jaramillo documented as of this encounter Results * (ABNORMAL) BASIC METABOLIC PANEL (CALCIUM TOTAL) (12/08/2020 10:00 AM CDT) Glucose 168(H) 70 - 105 mg/dL 12/08/2020 10:34 AM CDT [facility] Sodium 134(L) 136 - 145 mmol/L 12/08/2020 10:34 AM CDT [facility] Potassium 3.2(L) 3.5 - 5.1 mmol/L 12/08/2020 10:34 AM CDT [facility] Chloride 97(L) 98 - 107 mmol/L 12/08/2020 10:34 AM CDT [facility] CO2 25 23 - 31 mmol/L 12/08/2020 10:34 AM CDT [facility] Calcium 11.1(H) 8.4 - 10.4 mg/dL 12/08/2020 10:34 AM CDT [facility] Anion Gap 12 8 - 18 mmol/L 12/08/2020 10:34 AM CDT [facility] BUN 37(H) 9.8 - 20.1 mg/dL 12/08/2020 10:34 AM CDT [facility] Creatinine 0.95 0.57 - 1.11 mg/dL 12/08/2020 10:34 AM CDT [facility] eGFR by MDRD 56 mL/min/1.7 3m2 12/08/2020 10:34 AM CDT [facility] eGFR by MDRD >60 mL/min/1.7 3m2 12/08/2020 10:34 AM CDT [facility] Blood BLOOD SPECIMEN / Unknown Venipuncture / Unknown 12/08/2020 10:00 AM CDT 12/08/2020 10:19 AM CDT Enrique Gonzalez MD LAB - CHEMISTRY ORDE RICHIE [facility] Organization Address City/State/ZIP Co de Phone Number [facility] [address] [place] [address] documented in this encounter Visit Diagnoses Diagnosis Malignant neoplasm of upper-outer quadrant of left breast in female, estrogen receptor positive (HCC)- Primary Osteopenia of neck of femur, unspecified laterality Use of aromatase inhibitors Class 2 obesity with body mass index (BMI) of 35.0 to 35.9 in adult, unspecified obesity type, unspecified whether serious comorbidity present Hypokalemia Hypopotassemia documented in this encounter Care Teams Account Support Rep Relationship Specialty Start [place] [address] [facility] [address] [place] [address] PCP - General Internal Medicine 03/31/18 05/30/22 Brooke Haynes, INTERNET MARKETING SPECIALIST-REGISTERED NURSE FIRST ASSISTANT [address] [facility] [address] [place] [address] PCP - Attributed-MSSP 10/17/20 09/15/21 Etienne Florez MD Orthopedic Surgery 12/09/14 [place] [address] [facility] [address] [place] [address] Oncology 09/15/17 [place] [address] [facility] [address] [place] [address] Neurology 06/26/18 [place] [address] [facility] [address] [place] [address] Cardiovascular Disease 06/26/18 [place] [address] [address] Pulmonary Disease 06/26/18 Yuliya Ibarra MD [address] [facility] [address] [place] [address] Endocrinology 06/26/18 Phuong Callejas DPM [address] [place], [place] [address] Podiatry 06/26/18 Sy Barrientos MD [address] [place] [address] [place] [address] Ophthalmology 06/26/18 [place] [address] [facility] [address] [place] [address] Pulmonary Disease 06/26/18 Rico Gasca MD [address] [place] [address] Urology 06/26/18 Elle Landaverde MD [address] [facility] [address] [place] [address] Vascular Surgery 06/26/18 Kirk Truong MD [address] [facility] [address] [place] [address] Gastroenterology 06/26/18 [place] [address] [facility] [address] [place] [address] General Surgery 06/26/18 [place] [address] [facility] [address] [place] [address] Pulmonary Disease 11/10/20 documented as of this encounter
--- OUTSIDE RECORDS SUMMARY | 2024-05-26 12:35 | XMS_ITS | Encounter Summary ---
Author Organization [facility] Address [address] [facility] [place] [address] Care Team Providers Care Offset Press Operator Helper Name Role Phone Etienne Florez MD Unavailable Enrique Gonzalez MD Unavailable [phone] Theresa Camargo MD Primary Care Provider [phone] Nelson Ross MD Unavailable Laz Valencia MD Unavailable Russell Moran MD Unavailable [phone] Yuliya Ibarra MD Unavailable [phone] Phuong Callejas DPM Unavailable Sy Barrientos MD Unavailable Russell Moran MD Unavailable Rico Gasca MD Unavailable [phone] Elle Landaverde MD Unavailable [phone] Kirk Truong MD Unavailable [phone] Kate Shira Gomez DO Unavailable [phone] Sara Schultz MD Unavailable [phone] Ivy Brooke APRN-[facility] Unavailable [phone] Reason for Visit * Reason Onset Date Comments MEDICATION REFILL 03/06/2021 Encounter Details Date Type Department Care Team (Late st Contact Info) Description 03/06/2021 Refill [facility] - Family Medicine [address] [facility] [address] [place] [address] [place] [address] [facility] [address] [place] [address] MEDICATION REFILL Social History Tobacco [...] encounter Miscellaneous Notes * Telephone Encounter - Milton Naidu - 03/09/2021 1:53 PM CDT Last Refill: 06/28/20 Last OV: 12/04/20 Upcoming OV: 05/08/21 documented in this encounter Plan of Treatment Not on file documented as of this encounter Goals Goal Patient Goal Type Associated Problems Recent Progress Patient-Stated? 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 8:09 AM PRODUCT SAFETY ENGINEER) No YeceniaAmber marksAlisa HEMOGLOBIN A1C < 7.0 Result Component 5.4( 12:00 AM CDT) No Clint Alisa documented as of this encounter Visit Diagnoses Not on filedocumented in this encounter Care Teams Offset Press Operator Helper Relationship Specialty Start [place] [address] [facility] [address] [place] [address] PCP - General Internal Medicine 03/31/18 05/30/22 Brooke Haynes APRN-CNC MILLING MACHINE OPERATOR [address] [facility] [address] [place] [address] PCP - Attributed-MSSP 10/17/20 09/15/21 Etienne Florez MD Orthopedic Surgery 12/09/14 [place] [address] [facility] [address] [place] [address] Oncology 09/15/17 [place] [address] [facility] [address] [place] [address] Neurology 06/26/18 [place] [address] [facility] [address] [place] [address] Cardiovascular Disease 06/26/18 [place] [address] [address] Pulmonary Disease 06/26/18 Yuliya Ibarra MD [address] [place] [address] Endocrinology 06/26/18 Phuong Callejas DPM [address] [place], [place] [address] Podiatry 06/26/18 Sy Barrientos MD [address] [place] [address] Ophthalmology 06/26/18 [place] [address] [id number] Pulmonary Disease 06/26/18 Rico Gasca MD [address] [facility] [address] [place] [address] Urology 06/26/18 Elle Landaverde MD [address] [facility] [address] [place] [address] Vascular Surgery 06/26/18 Kirk Truong MD [address] [facility] [address] [place] [address] Gastroenterology 06/26/18 [place] [address] [place] [address] General Surgery 06/26/18 [place] [address] [address] Pulmonary Disease 11/10/20 documented as of this encounter
--- OUTSIDE RECORDS SUMMARY | 2024-05-26 12:35 | XMS_ITS | Encounter Summary ---
Author Organization [facility] Address [address] [address] Care Team Providers Care Supervisor Calibration Name Role Phone Etienne Florez MD Unavailable Enrique Gonzalez MD Unavailable [phone] Theresa Camargo MD Primary Care Provider Nelson Ross MD Unavailable Laz Valencia MD Unavailable Russell Moran MD Unavailable Yuliya Ibarra MD Unavailable [phone] Phuong Callejas DPM Unavailable Sy Barrientos MD Unavailable [phone] Russell Moran MD Unavailable Rico Gasca MD Unavailable Elle Landaverde MD Unavailable Kirk Truong MD Unavailable [phone] Shira Love DO Unavailable [phone] Sara Schultz MD Unavailable [phone] Brooke Haynes [facility] Unavailable [phone] Encounter Details Date Type Department Care Team (Late st Contact Info) Description 05/04/2021 Orders Only [facility] - Family Medicine [address] [facility] [address] [place] [address] [place] [address] [facility] [address] [place] [address] Social History Tobacco Use Types [...] No 09/27/2020 documented as of this encounter Progress Notes * Jina Haskins - 05/04/2021 3:04 PM CST The patient has been notified of this information and all questions answered. WELL PULLER * Theresa Camargo MD - 05/04/2021 1:32 PM CST I have sent out a new antibiotic. I do not know about its coverage her cost. They will probably want to ask on that 1st. The culture was very limited in what she could have. WELL PULLER documented in this encounter Plan of Treatment Not on file documented as of this encounter Goals Goal Patient Goal Type Associated Problems Recent Progress Patient-Stated? 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 8:09 AM HEAD WELL PULLER) No Jared Jaramilloa HEMOGLOBIN A1C < 7.0 Result Component 5.4( 12:00 AM CDT) No Alisa Jaramillo documented as of this encounter Visit Diagnoses Not on filedocumented in this encounter Care Teams Supervisor Calibration Relationship Specialty [place] [address] [facility] [address] [place], [place] [id number] PCP - General Internal Medicine 03/31/18 05/30/22 Brooke Haynes, CAN STRIPER-REGIONAL AIRLINE PILOT [address] [facility] [address] [place] [address] PCP - Attributed-MSSP 10/17/20 09/15/21 Etienne Florez MD Orthopedic Surgery 12/09/14 [place] [address] [address] Oncology 09/15/17 [place] [address] [facility] [address] [place] [address] Neurology 06/26/18 [place] [address] [facility] [address] [place] [address] Cardiovascular Disease 06/26/18 [place] [address] [address] [place], [place] [id number] Pulmonary Disease 06/26/18 Yuliya Ibarra MD [address] [place] [address] Endocrinology 06/26/18 Phuong Callejas DPM [address] [place] [address] Podiatry 06/26/18 Sy Barrientos MD [address] [place] [address] [place] [address] Ophthalmology 06/26/18 [place] [address] [id number] Pulmonary Disease 06/26/18 Rico Gasca MD [address] [facility] [address] [place] [address] Urology 06/26/18 Elle Landaverde MD [address] [facility] [address] [place] [address] Vascular Surgery 06/26/18 Kirk Truong MD [address] [facility] [address] [place] [address] Gastroenterology 06/26/18 [place] [address] [place] [address] General Surgery 06/26/18 [place] [address] [facility] [address] [place] [address] Pulmonary Disease 11/10/20 documented as of this encounter
--- OUTSIDE RECORDS SUMMARY | 2024-05-26 12:35 | XMS_ITS | Encounter Summary ---
Author Organization [facility] Address [address] [facility] [place] [address] Care Team Providers Care Operation Shift Supervisor Name Role Phone Etienne Florez MD Unavailable Enrique Gonzalez MD Unavailable [phone] Theresa Camargo MD Primary Care Provider [phone] Nelson Ross MD Unavailable Laz Valencia MD Unavailable Russell Moran MD Unavailable Yuliya Ibarra MD Unavailable Phuong Callejas DPM Unavailable [phone] Sy Barrientos MD Unavailable [phone] Russell Moran MD Unavailable [phone] Rico Gasca MD Unavailable Elle Ladnaverde MD Unavailable [phone] Kirk Truong MD Unavailable [phone] Shira Love DO Unavailable [phone] Sara Schultz MD Unavailable [phone] Kasie Haynesecroseann [facility] Unavailable [phone] Reason for Visit * Oncology Prior Authorization (Routine) - Closed Specialty Diagnoses / Procedures Referred By Contac t Referred To Contact Diagnoses Malignant neoplasm of upper-outer quadrant of left breast in female, estrogen receptor positive (HCC) Osteopenia of multiple sites Aromatase inhibitor use Procedures ONCOLOGY MEDICATION AUTH COMM[place] [id number] [place] [address] [facility] [id number] [place] [address] Referral ID Status Reason Start Date Expiration Date Visits Re quested Visits Authorized [id number] Closed 10/29/2017 05/18/2023 1 99 Encounter Details Date Type Department Care Team (Latest Contact Info) Description 12/08/2020 9:52 AM CDT - 12/08/2020 9:54 AM CDT Hospital Encounter Infusion Services at [address] [address] Enrique Gonzalez MD [address] [place] [address] Discharge Disposition: Home or Self Care [...] < 140/90 Blood Pressure 127/52(2022 8:09 AM CLERK TRAVEL RESERVATIONS) No AllisonflorentinoAlisa marks HEMOGLOBIN A1C < 7.0 Result Component 5.4( 12:00 AM CDT) No ClintAmberAlisa documented as of this encounter Visit Diagnoses Diagnosis Osteopenia of multiple sites- Primary Malignant neoplasm of upper-outer quadrant of left breast in female, estrogen receptor positive (HCC) documented in this encounter Administered Medications Inactive Administered Medications - up to 3 most recent administrations Medication Order MAR Action Action Date Dose Rate Site denosumab (Prolia) SC injection SOLN 60 mg 60 mg, Subcutaneous, ONCE, 1 dose, On Fri12/08/20 at 1115 $ Given 12/08/2020 11:09 AM CDT 60 mg Abdominal Tissue documented in this encounter Care Teams Operation Shift Supervisor Relationship Specialty [place] [address] [facility] [address] [place], [place] [id number] PCP - General Internal Medicine 03/31/18 05/30/22 Brooke Haynes, SUPERVISOR LAUNDRY-PROJECT ANALYST [address] [place] [address] PCP - Attributed-MSSP 10/17/20 09/15/21 Etienne Florez MD Orthopedic Surgery 12/09/14 [place] [address] [place] [address] Oncology 09/15/17 [place] [address] [address] [facility] [address] [place] [address] Neurology 06/26/18 [place] [address] [facility] [address] [place] [address] Cardiovascular Disease 06/26/18 [place] [address] [address] Pulmonary Disease 06/26/18 Yuliya Ibarra MD [address] [facility] [address] [place] [address] Endocrinology 06/26/18 Phuong Callejas DPM [address] [place], [place] [address] Podiatry 06/26/18 Sy Barrientos MD [address] [place] [address] [place] [address] Ophthalmology 06/26/18 [place] [address] [id number] Pulmonary Disease 06/26/18 Rico Gasca MD [address] [address] [place] [address] Urology 06/26/18 Elle Landaverde MD [address] [facility] [address] [place] [address] Vascular Surgery 06/26/18 Kirk Truong MD [address] [facility] [facility] [address] [place] [address] Gastroenterology 06/26/18 [place] [address] [facility] [address] [place] [address] General Surgery 06/26/18 [place] [address] [facility] [address] [place] [address] Pulmonary Disease 11/10/20 documented as of this encounter
--- OUTSIDE RECORDS SUMMARY | 2024-05-26 12:35 | XMS_ITS | Encounter Summary ---
Author Organization [facility] Address [address] [facility] [address] Care Team Providers Care Tourist Escort Name Role Phone Etienne Florez MD Unavailable Enrique Gonzalez MD Unavailable [phone] Theresa Camargo MD Primary Care Provider [phone] Nelson Ross MD Unavailable Laz Valencia MD Unavailable Russell Moran MD Unavailable Yuliya Ibarra MD Unavailable [phone] Phuong Callejas DPM Unavailable [phone] Sy Barrientos MD Unavailable [phone] Russell Moran MD Unavailable Rico Gasca MD Unavailable Elle Landaverde MD Unavailable Kirk Truong MD Unavailable [phone] Shira Love DO Unavailable Sara Schultz MD Unavailable [phone] Ivy Brooke [facility] Unavailable [phone] Reason for Visit * Reason Comments Hospital Follow-up Encounter Details Date Type Department Care Team (Late st Contact Info) Description 11/10/2020 10:00 AM CDT Office Visit [facility] - Pulmonology [address] [facility] [address] [place] [address] [place] [address] [facility] [address] [place] [address] Hospital discharge follow-up (Primary Dx); 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 (HCC); CATY (obstructive sleep apnea) Social History Tobacco Use Types Packs/Day Years [...] Sign Reading Time Taken Comments Blood Pressure 124/60 11/10/2020 10:19 AM CDT Pulse 78 11/10/2020 10:19 AM CDT Temperature 36.1 ??C (97 ??F) 11/10/2020 10:19 AM CDT Respiratory Rate 16 11/10/2020 10:19 AM CDT Oxygen Saturation 96% 11/10/2020 10:19 AM CDT room air Inhaled Oxygen Concentration - - Weight 80.3 kg (177 lb) 11/10/2020 10:19 AM CDT STATED WEIGHT Height 165.1 cm (5' 5 ) 11/10/2020 10:19 AM CDT Body Mass Index 29.45 11/10/2020 10:19 AM CDT documented in this encounter Functional [...] as of this encounter Progress Notes * Sara Schutlz MD - 11/10/2020 10:24 AM CDT Pulmonary Clinic Followup visit note Theresa Camargo MD Follow up: Hospital follow up , pulm embolism Chief complaint:as above Perla Leon is a 79 year old female with a history of CATY, asthma, atrial fibrillation, left breast cancer on anastrozole Hospitalizations hospitalized in September 2020 for right hip pain in gluteal hematoma discharged off blood thinners readmitted with acute pulmonary embolism/saddle embolus with mild RV strain from [id number]. Received anticoagulation and IVR guided thrombectomy, discharged on Eliquis. Did not need home O2. Now returns for follow-up Complaints: Daughter with patient today. Patient is doing relatively well. Home healthcare and homephysical therapy were set up at discharge and now only home healthcare is seeing patient. Patient uses a walker for ambulation family's maintaining fall precautions. Patient denies any shortness of breath, cough, sputum, hemoptysis. Does have periods of chest discomfort and indigestion and taking Nexium for that. Cardiac Stress test done in the hospital was negative for any ischemic defects. No other symptoms were elicited Wt Readings from Last 3 Encounters: 11/10/20 80.3 kg (177 lb) 11/02/20 80.3 kg (177 lb) 10/12/20 80.3 kg (177 lb) Appetite normal No other complaints. Medication compliance satisfactory. Home oxygen use: Tobacco Smoking: Sleep problems: History of CATY on home CPAP with reported compliance. Sometimes find CPAP on mask on the floor when she gets up in the morning. Has not been using CPAP for daytime naps Available test results were reviewed, medical chart reviewed on [facility] everywhere where applicable . Past Medical History: Diagnosis Date ??? [...] T1cN0(i-)M0, stage IA. 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 No LVI. Margin neg S/p 09/08/2017 sentinel node biopsy (aKte): 2 neg nodes Med onc:Dr. Gonzalez: adjuvant [...] Type 2 diabetes mellitus without complication 01/07/2011 Current Outpatient Medications Medication Sig Dispense Refill ??? albuterol HFA [...] mouth once daily No current facility-administered medications for this visit. Social history: Tobacco Use: Exam BP 124/60 Pulse 78 Temp 97 ??F (36.1 ??C) Resp 16 Ht 1.651 m (5' 5 ) Wt 80.3 kg (177 lb) SpO2 96% BMI 29.45 kg/m2, Body mass index is 29.45 kg/m??. Pulse oximetry on room air is within normal limits General appearance: alert, cooperative, no distress, looks well HEENT: PERRL, Oropharynx: Face covering, not examined nasal exam: WNL Lungs: No accessory msl use,Chest wall symmetrical, No dullness to percussion, Breath sounds symmetric; no crackles, rhonchi or wheezes, equal expansion with good effort Heart: regular rhythm, S1 and S2, without murmurs, gallops or rubs Abdomen: soft , non-tender, non distended mildly obese Extremities: no clubbing, cyanosis or edema Skin: no rash on visible areas Labs Recent Labs Component Name 10/04/20 0417 WBC 11.1* HGB 10.7* HCT 35.7* PLTCOUNT 261 Recent Labs Component Name 10/12/20 1209 10/04/20 0417 10/03/20 0402 SODIUM 136 136 134* POTASSIUM 3.4* 4.7 4.5 CHLORIDE 98 107 106 CO2 26 21* 22* BUN 35* 13 12 CREATININE 1.00 0.91 0.74 EGFR 53 59 >60 GLUCOSE 110* 153* 142* CALCIUM 10.8* 9.8 9.8 Imaging Data: reviewed cxr and ct scan chest images and reports personally Reviewed chest x-rays and CT scans of the chest from recent hospitalization in Sep, 2020 PULMONARY FUNCTION TEST: None Echocardiogram : Reviewed Sleep study: Impression and Recommendations Encounter Diagnoses Name Primary? Hospital discharge follow-up Yes ??? 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 Patient doing well since hospital discharge. Currently on Eliquis for recent history of acute saddle pulmonary embolism with RV strain. Status post thrombectomy. Patient is tolerating blood thinners without any complications Etiology of pulmonary embolism may have been related to previous recent hospitalization where patient did not receive DVT prophylaxis due to gluteal hematoma. Additionally on anastrozole for breast cancer. Will use Eliquis for at least 6 months however may needed indefinitely as long as no major complications including major bleeding, given severity of pulmonary embolism. However need to ensure adequate fall precautions while patient is taking blood thinners All of the above was discussed at length with patient and her daughter in the office today. Patient will continue to follow with hematology oncology Borderline anemia: Advised multi vitamin with iron supplements for 3 months and follow-up CBC in January, with PCP Maintain fall precautions CATY: Continue CPAP for all sleep periods education provided Immunizations: Status post COVID-19 vaccination. Can follow in pulmonary office on an as-needed basis. All questions were answered. Discussed with patient , all questions answered Chart/ relevant medical records reviewed in this visit CC: PCP No orders of the defined types were placed in this encounter. documented in this encounter Plan of Treatment Not on file documented as of this encounter Goals Goal Patient Goal Type Associated Problems Recent Progress Patient-Stated? 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 8:09 AM INTERACTIVE ART DIRECTOR) No Alisa Jaramillo HEMOGLOBIN A1C < 7.0 Result Component 5.4( 12:00 AM CDT) No Alisa Jaramillo documented as of this encounter Visit Diagnoses Diagnosis Hospital discharge follow-up- Primary Other follow-up examination 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 (HCC) CATY (obstructive sleep apnea) Obstructive sleep apnea (adult) (pediatric) documented in this encounter Care Teams Tourist Escort Relationship Specialty Start [place] [address] [facility] [address] [place] [address] PCP - General Internal Medicine 03/31/18 05/30/22 Brooke Haynes, YAEL-OXYACETYLENE CUTTER [address] [address] [place] [address] PCP - Attributed-MSSP 10/17/20 09/15/21 Etienne Florez MD Orthopedic Surgery 12/09/14 [place] [address] [facility] [address] [facility] [address] [place] [address] Oncology 09/15/17 [place] [address] [facility] [address] [facility] [address] [place] [address] Neurology 06/26/18 [place] [address] [facility] [address] [place] [address] Cardiovascular Disease 06/26/18 Russell Moran MD [address] [place] [address] Pulmonary Disease 06/26/18 Yuliya Ibarra MD [address] [facility] [address] [place] [address] Endocrinology 06/26/18 Phuong Callejas DPM [address] [place], [place] [address] Podiatry 06/26/18 Sy Barrientos MD [address] [place] [address] [place] [address] Ophthalmology 06/26/18 Russell Moran MD [address] [place] [address] Pulmonary Disease 06/26/18 Rico Gasca MD [address] [facility] [address] [place] [address] Urology 06/26/18 Elle Landaverde MD [address] [facility] [address], [place] [address] Vascular Surgery 06/26/18 Kirk Truong MD [address] [address] Gastroenterology 06/26/18 [place] [address] [facility] [address] [place] [address] General Surgery 06/26/18 [place] [address] [facility] [address] [place] [address] Pulmonary Disease 11/10/20 documented as of this encounter
--- OUTSIDE RECORDS SUMMARY | 2024-05-26 12:35 | XMS_ITS | Encounter Summary ---
Author Organization [facility] Address [address] [place] [address] Care Team Providers Care Batch Trucker Name Role Phone Etienne Florez MD Unavailable Enrique Gonzalez MD Unavailable [phone] Theresa Camargo MD Primary Care Provider [phone] Nelson Ross MD Unavailable Laz Valencia MD Unavailable Russell Moran MD Unavailable [phone] Yuliya Ibarra MD Unavailable Phuong Callejas DPM Unavailable Sy Barrientos MD Unavailable Russell Moran MD Unavailable [phone] Rico Gasca MD Unavailable [phone] Elle Landaverde MD Unavailable Kirk Truong MD Unavailable [phone] Shira Love DO Unavailable [phone] Sara Schultz MD Unavailable [phone] Ivy Brooke [facility] Unavailable [phone] Reason for Visit * Reason Onset Date Comments Referral 01/10/2021 Encounter Details Date Type Department Care Team (Late st Contact Info) Description 01/10/2021 Telephone [facility] - Family Medicine [address] [facility] [address] [place] [address] [place] [address] [facility] [address] [place] [address] Referral Social History Tobacco Use [...] * Telephone Encounter - Jina Haskins - 01/11/2021 8:07 AM CDT Completed referrral request * Telephone Encounter - Brandon Roca - 01/10/2021 5:27 PM CDT Patient in need of an ambulatory referral. * Telephone Encounter - Shreyas Garcia - 01/10/2021 3:06 PM CDT Perla Leon is in need of an insurance referral for : Diagnosis Code or reason being Seen: Chronic Constipation Date of Scheduled Appt- no appointment scheduled Specialist Name- Dr Neeta Patel Specialist Phone Number- [phone] Specialist Fax Number- Insurance- Medicare/[employer] PCP- Theresa Camargo MD Person calling for the referral- Brandi documented in this encounter Plan of Treatment Not on file documented as of this encounter Goals Goal Patient Goal Type Associated Problems Recent Progress Patient-Stated? 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 8:09 AM FABRICATION SPECIALIST) No Alisa Jaramillo HEMOGLOBIN A1C < 7.0 Result Component 5.4( 12:00 AM CDT) No Alisa Jaramillo documented as of this encounter Visit Diagnoses Diagnosis Chronic idiopathic constipation- Primary Unspecified constipation documented in this encounter Care Teams Batch Trucker Relationship Specialty Start [place] [address] [facility] [address] [place] [address] PCP - General Internal Medicine 03/31/18 05/30/22 Brooke Haynes, TRUCK WASHER-AUTO REFINISHER [address] [facility] [address] [place], [place] [id number] PCP - Attributed-MSSP 10/17/20 09/15/21 Etienne Florez MD Orthopedic Surgery 12/09/14 [place] [address] [facility] [address] [facility] [address] [place] [address] Oncology 09/15/17 [place] [address] [facility] [address] [place] [address] Neurology 06/26/18 [place] [address] [facility] [address] [place] [address] Cardiovascular Disease 06/26/18 Russell Moran MD [address] [place] [address] Pulmonary Disease 06/26/18 Yuliya Ibarra MD [address] [facility] [address] [place] [address] Endocrinology 06/26/18 Phuong Callejas DPM [address] [place] [address] Podiatry 06/26/18 Sy Barrientos MD [address] [place] [address] [place] [address] Ophthalmology 06/26/18 Russell Moran MD [address] [place] [address] Pulmonary Disease 06/26/18 Rico Gasca MD [address] [facility] [address] [facility] [address] [address] Urology 06/26/18 Elle Landaverde MD [address] [facility] [address] [place] [address] Vascular Surgery 06/26/18 Kirk Truong MD [address] [facility] [address] [place] [address] Gastroenterology 06/26/18 [place] [address] [facility] [address] [place] [address] General Surgery 06/26/18 [place] [address] [facility] [address] [place] [address] Pulmonary Disease 11/10/20 documented as of this encounter
--- OUTSIDE RECORDS SUMMARY | 2024-05-26 12:35 | XMS_ITS | Encounter Summary ---
Author Organization [facility] Address [address] [facility] [place] [address] Care Team Providers Care Mud Mixer Name Role Phone Etienne Florez MD Unavailable Enrique Gonzalez MD Unavailable [phone] Theresa Camargo MD Primary Care Provider [phone] Nelson Ross MD Unavailable Laz Valencia MD Unavailable Russell Moran MD Unavailable [phone] Yuliya Ibarra MD Unavailable Phuong Callejas DPM Unavailable Sy Barrientos MD Unavailable Russell Moran MD Unavailable Rico Gasca MD Unavailable Elle Landaverde MD Unavailable iKrk Truong MD Unavailable [phone] Shira Love DO Unavailable [phone] Sara Schultz MD Unavailable [phone] SteveBrooke barnes [facility] Unavailable [phone] Reason for Visit * Reason Onset Date Comments Update 03/12/2021 Encounter Details Date Type Department Care Team (Late st Contact Info) Description 03/12/2021 Telephone [facility] [address] [facility] [address] [place] [address] [place] [address] [facility] [address] [place] [address] Update Social History Tobacco Use Types Packs/Day [...] encounter Miscellaneous Notes * Telephone Encounter - Xochitl Teixeira - 03/12/2021 11:18 AM CDT Orders was faxed to [facility] * Telephone Encounter - Eva Sinha - 03/12/2021 10:[address] Ross OK'd labs please place the orders and fax * Telephone Encounter - Xochitl Teixeira - 03/12/2021 10:38 AM CDT The daughter called back and would like the orders to for the blood work to be faxed to [phone] * Telephone Encounter - Eva Sinha - 03/12/2021 9:43 AM CDT I spoke with patients daughter Ange and informed that Dr. Ross would like to order a CMP, CBC,and a UA. Also schedule a visit with Maisha mcpherson tomorrow. We scheduled the appointment. The daughterwivernon call back to let us know where she would like to go for the lab work. * Telephone Encounter - Alice Wan - 03/12/2021 9:28 AM CDT The patient's daughter called and stated that they were concerned since her last visit her symptomshave increased. She can not tell you what year it is nor her full birthday. She is very confused and fidgety. She needs help getting up and tries to get up and run in the night. Her memory is slowingdown. She has trouble recalling things like filling out a check and certain things she was used to d oing. The family feels like she may have Demansia and wanted to know if there was something that could slow it down. Please advise and respond. documented in this encounter Plan of Treatment Scheduled Orders Name Type Priority Associated Diagnoses Orde r Schedule CBC WITH DIFFERENTIAL Lab Routine Memory loss Ordered: 03/12/2021 COMPREHENSIVE METABOLIC PANEL Lab Routine Memory loss Ordered: 03/12/2021 URINALYSIS Lab Routine Memory loss Expected: 03/12/2021, Expires: 04/26/2021 documented as of this encounter Goals Goal Patient Goal Type Associated Problems Recent Progress Patient-Stated? 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 8:09 AM CONSERVATION SPECIALIST) No Alisa Jaramillo HEMOGLOBIN A1C < 7.0 Result Component 5.4( 12:00 AM CDT) No Alisa Jaramillo documented as of this encounter Visit Diagnoses Diagnosis Memory loss- Primary documented in this encounter Care Teams Mud Mixer Relationship Specialty [place] [address] [place] [address] PCP - General Internal Medicine 03/31/18 05/30/22 Brooke Haynes APRN-PHOTO FINISHER [address] [facility] [address] [place] [address] PCP - Attributed-MSSP 10/17/20 09/15/21 Etienne Florez MD Orthopedic Surgery 12/09/14 [place] [address] [facility] [address] [place] [address] Oncology 09/15/17 [place] [address] [facility] 100 [place] [address] Neurology 06/26/18 [place] [address] [facility] [address] [place] [address] Cardiovascular Disease 06/26/18 [place] [address] [address] Pulmonary Disease 06/26/18 Yuliya Ibrara MD [address] [place] [address] Endocrinology 06/26/18 Phuong Callejas DPM [address] [place], [place] [address] Podiatry 06/26/18 Sy Barrientos MD [address] [place] [address] [place] [address] Ophthalmology 06/26/18 [place] [address] [address] Pulmonary Disease 06/26/18 Rico Gasca MD [address] [facility] [facility] [address] [place] [address] Urology 06/26/18 Elle Landaverde MD [address] [facility] [address] [place] [address] Vascular Surgery 06/26/18 Kirk Truong MD [address] [facility] [address] [place] [address] Gastroenterology 06/26/18 [place] [address] [place] [address] [place] [address] General Surgery 06/26/18 [place] [address] [address] Pulmonary Disease 11/10/20 documented as of this encounter
--- OUTSIDE RECORDS SUMMARY | 2024-05-26 12:35 | XMS_ITS | Encounter Summary ---
Author Organization [facility] Address [address] [facility] [place] [address] Care Team Providers Care Rehabilitation Physician Name Role Phone Etienne Florez MD Unavailable Enrique Gonzalez MD Unavailable [phone] Theresa Camargo MD Primary Care Provider Nelson Ross MD Unavailable Laz Valencia MD Unavailable Russell Moran MD Unavailable [phone] Yuliya Ibarra MD Unavailable Phuong Callejas DPM Unavailable Sy Barrientos MD Unavailable Russell Moran MD Unavailable Rico Gasca MD Unavailable Elle Landaverde MD Unavailable [phone] Kirk Truong MD Unavailable [phone] Shira Love DO Unavailable [phone] Sara Schultz MD Unavailable [phone] Ivy Brooke [facility] Unavailable [phone] Reason for Visit * Reason Onset Date Comments Question 03/27/2021 Encounter Details Date Type Department Care Team (Late st Contact Info) Description 03/27/2021 Telephone [facility] - Family Medicine [address] [facility] [address] [place] [address] [place] [address] [facility] [address] [place] [address] Question Social History Tobacco Use [...] * Telephone Encounter - Jina Haskins - 03/27/2021 1:05 PM CST I called and spoke to the patient and when she gets to her mother house she will send me a picture of the machine to get this started. LEVEL GAME DESIGNER * Telephone Encounter - Nell Bruce - 03/27/2021 10:02 AM CST Who is calling? Nina (Daughter) What is the reason for call? Daughter is stating that patient is in need of a new cpap machine. Shestates that its just old and difficult to work. She states the mask is really big and that mom struggles to get it on and off. Expected Response from the Clinic? ( ex. Call back, etc..) Please advise LEVEL GAME DESIGNER documented in this encounter Plan of Treatment Not on file documented as of this encounter Goals Goal Patient Goal Type Associated Problems Recent Progress Patient-Stated? 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 8:09 AM MID LEVEL GAME DESIGNER) No Alisa Jaramillo HEMOGLOBIN A1C < 7.0 Result Component 5.4( 12:00 AM CDT) No Alisa Jaramillo documented as of this encounter Visit Diagnoses Not on filedocumented in this encounter Care Teams Rehabilitation Physician Relationship Specialty [place] [address] [address] [place], [place] [address] PCP - General Internal Medicine 03/31/18 05/30/22 Brooke Haynes APRN-SYSTEM SUPPORT SPECIALIST [address] [place] [address] PCP - Attributed-MSSP 10/17/20 09/15/21 Etienne Florez MD Orthopedic Surgery 12/09/14 [place] [address] [place] [address] Oncology 09/15/17 [place] [address] [place] [address] Neurology 06/26/18 [place] [address] [facility] [address] [place] [address] Cardiovascular Disease 06/26/18 [place] [address] [place] [address] [address] [place], [place] [id number] Pulmonary Disease 06/26/18 Yuliya Ibarra MD [address] [facility] [address] [place] [address] Endocrinology 06/26/18 Phuong Callejas DPM [address] [place] [address] Podiatry 06/26/18 Sy Barrientos MD [facility] [place] [address] Ophthalmology 06/26/18 [place] [address] [place] [address] Pulmonary Disease 06/26/18 Rico Gasca MD [address] [place] [address] Urology 06/26/18 Elle Landaverde MD [address] [place] [address] Vascular Surgery 06/26/18 Kirk Truong MD [address] [place] [address] Gastroenterology 06/26/18 [place] [address] [facility] [address] [place] [address] General Surgery 06/26/18 [place] [address] [facility] [address] [place] [address] Pulmonary Disease 11/10/20 documented as of this encounter
--- OUTSIDE RECORDS SUMMARY | 2024-05-26 12:35 | XMS_ITS | Encounter Summary ---
Author Organization [facility] Address [address] [facility] [facility] [place] [address] Care Team Providers Care Convertible Top Installer Name Role Phone Etienne Florez MD Unavailable [phone] Enrique Gonzalez MD Unavailable Theresa Camargo MD Primary Care Provider Nelson Ross MD Unavailable Laz Valencia MD Unavailable Russell Moran MD Unavailable [phone] Yuliya Ibarra MD Unavailable Phuong Callejas DPM Unavailable Sy Barrientos MD Unavailable Russell Moran MD Unavailable Rico Gasca MD Unavailable Elle Landaverde MD Unavailable [phone] Kirk Truong MD Unavailable [phone] Shira Love DO Unavailable [phone] Sara Schultz MD Unavailable [phone] Ivy Brooke [facility] Unavailable [phone] Reason for Visit * Reason Onset Date Comments Update 12/26/2020 Encounter Details Date Type Department Care Team (Late st Contact Info) Description 12/26/2020 Telephone [facility] Medical [facility] - Family Medicine [address] [facility] [address] [place] [address] [place] [address] [facility] [address] [place] [address] Update Social History Tobacco Use Types Packs/Day [...] encounter Miscellaneous Notes * Telephone Encounter - Debra Tellez P - 12/26/2020 9:18 AM CDT Who is calling? Daughter If other than self is caller listed on the HIPAA? yes What is the reason for call? Patient had to cancel appt due to hospitalization. Ange states that if office needs to check in orget any information about mothers hospital stay call her directly Expected Response from the Clinic? update documented in this encounter Plan of Treatment Not on file documented as of this encounter Goals Goal Patient Goal Type Associated Problems Recent Progress Patient-Stated? 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 8:09 AM E BUSINESS SPECIALIST) No Alisa Jaramillo HEMOGLOBIN A1C < 7.0 Result Component 5.4( 12:00 AM CDT) No Alisa Jaramillo documented as of this encounter Visit Diagnoses Not on filedocumented in this encounter Care Teams Convertible Top Installer Relationship Specialty Start [place] [address] [facility] [address] [place] [address] PCP - General Internal Medicine 03/31/18 05/30/22 Brooke Haynes, YAEL-MOLD SHOP SUPERVISOR [address] [facility] [address] [place] [address] PCP - Attributed-MSSP 10/17/20 09/15/21 Etienne Florez MD Orthopedic Surgery 12/09/14 [place] [address] [facility] 100 [place] [address] Oncology 09/15/17 [place] [address] [facility] 100 [place] [address] Neurology 06/26/18 [place] [address] [facility] [address] [place] [address] Cardiovascular Disease 06/26/18 [place] [address] [address] [place] [id number] Pulmonary Disease 06/26/18 Yuliya Ibarra MD [address] [place] [address] Endocrinology 06/26/18 Phuong Callejas DPM [address] [place], [place] [address] Podiatry 06/26/18 Sy Barrientos MD [address] [place] [address] [place] [address] Ophthalmology 06/26/18 Russell Moran MD [address] [place] [address] Pulmonary Disease 06/26/18 Rico Gasca MD [address] [place] [address] Urology 06/26/18 Elle Landaverde MD [address] [place] [address] Vascular Surgery 06/26/18 Kirk Truong MD [address] [place] [address] Gastroenterology 06/26/18 [place] [address] [facility] [address] [place] [address] General Surgery 06/26/18 [place] [address] [facility] [address] [place] [address] Pulmonary Disease 11/10/20 documented as of this encounter
--- OUTSIDE RECORDS SUMMARY | 2024-05-26 12:35 | XMS_ITS | Encounter Summary ---
Author Organization [facility] Address [address] [facility] [place] [address] Care Team Providers Care Spanish Medical Interpreter Name Role Phone Etienne Florez MD Unavailable Enrique Gonzalez MD Unavailable [phone] Theresa Camargo MD Primary Care Provider Nelson Ross MD Unavailable [phone] Laz Valencia MD Unavailable Russell Moran MD Unavailable Yuliya Ibarra MD Unavailable Phuong Callejas DPM Unavailable Sy Barrientos MD Unavailable Russell Moran MD Unavailable Rico Gasca MD Unavailable Elle Landaverde MD Unavailable Kirk Truong MD Unavailable [phone] Shira Love DO Unavailable [phone] Sara Schultz MD Unavailable [phone] Stevemolly Brooke [facility] Unavailable [phone] Encounter Details Date Type Department Care Team (Late st Contact Info) Description 05/02/2021 Orders Only [facility] [address] [facility] [address] [place] [address] [place] [address] [facility] [address] [place] [address] Social History Tobacco Use Types [...] < 140/90 Blood Pressure 127/52(2022 8:09 AM WAREHOUSE RECORD CLERK) No Alisa Jaramillo HEMOGLOBIN A1C < 7.0 Result Component 5.4( 12:00 AM CDT) No lAisa Jaramillo documented as of this encounter Visit Diagnoses Not on filedocumented in this encounter Care Teams Spanish Medical Interpreter Relationship Specialty [place] [address] [facility] [address] [place] [address] PCP - General Internal Medicine 03/31/18 05/30/22 Brooke Haynes APRN-COMMUNICATION ASSISTANT [address] [facility] [address] [place] [address] PCP - Attributed-MSSP 10/17/20 09/15/21 Etienne Florez MD Orthopedic Surgery 12/09/14 [place] [address] [facility] [address] [place] [address] Oncology 09/15/17 [place] [address] [facility] [address] [place] [address] Neurology 06/26/[address] [place] [address] [facility] [address] [place] [address] Cardiovascular Disease 06/26/18 [place] [address] [id number] Pulmonary Disease 06/26/18 Yuliya Ibarra MD [address] [facility] [address] [place] [address] Endocrinology 06/26/18 Phuong Callejas DPM [address] [place], [place] [address] Podiatry 06/26/18 Sy Barrientos MD [address] [place] [address] Ophthalmology 06/26/18 [place] [address] [address] Pulmonary Disease 06/26/18 Rico Gasca MD [address] [facility] [address] [place] [address] Urology 06/26/18 Elle Lanadverde MD [address] [facility] [address] [place] [address] Vascular Surgery 06/26/18 Kirk Truong MD [address] [facility] [address] [place] [address] Gastroenterology 06/26/18 [place] [address] [place] [address] General Surgery 06/26/18 [place] [address] [place], [place] [address] Pulmonary Disease 11/10/20 documented as of this encounter
--- OUTSIDE RECORDS SUMMARY | 2024-05-26 12:35 | XMS_ITS | Encounter Summary ---
Author Organization [facility] Address [address] [facility] [address] Care Team Providers Care Team Assistant Name Role Phone Etienne Florez MD Unavailable Enrique Gonzalez MD Unavailable [phone] Theresa Camargo MD Primary Care Provider Nelson Ross MD Unavailable [phone] Laz Valencia MD Unavailable Russell Moran MD Unavailable Yuliya Ibarra MD Unavailable Phuong Callejas DPM Unavailable Sy Barrientos MD Unavailable [phone] Russell Moran MD Unavailable [phone] Rico Gasca MD Unavailable Elle Landaverde MD Unavailable Kirk Truong MD Unavailable [phone] Shira Love DO Unavailable [phone] Asha Narvaez Unavailable [phone] Reason for Visit * Reason Onset Date Comments Med Question 10/10/2020 Encounter Details Date Type Department Care Team (Late st Contact Info) Description 10/10/2020 Telephone [facility] Medical [facility] - Family Medicine [address] [facility] [address] [place] [address] [place] [address] [facility] [address] [place] [address] Med Question Social History Tobacco Use Types Packs/Day [...] Telephone Encounter - Bonny Ballesteros APRN-CNP - 10/11/2020 12:49 PM CDT Plavix was stopped in hospital and replaced with Eliquis She does have a hospital follow tomorrow Pt notified She will keep her OV tomorrow * Telephone Encounter - RadhaShreyas mota - 10/10/2020 1:00 PM CDT Who is calling? Brandi If other than self is caller listed on the HIPAA? no If caller is anyone other than listed above, where are they calling from? [phone] What is the reason for call? She is calling to reconcile the patients medications. She was sent home on Eliquis and she was already taking Plavix, patient developed a PE while on Plavix. The patient insist on taking Plavix, her discharge med's do not reflect the Plavix. Patient though her lasix was increased but discharge med's say 40 mg daily? Expected Response from the Clinic? Please call back Need a verbal yes or no on what the patient should be taking. documented in this encounter Plan of Treatment Not on file documented as of this encounter Goals Goal Patient Goal Type Associated Problems Recent Progress Patient-Stated? 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 8:09 AM PHYSICIAN CREDENTIALING SPECIALIST) No Alisa Jaramillo HEMOGLOBIN A1C < 7.0 Result Component 5.4( 12:00 AM CDT) No Alisa Jaramillo documented as of this encounter Visit Diagnoses Not on filedocumented in this encounter Care Teams Team Assistant Relationship Specialty Start [place] [address] [address] PCP - General Internal Medicine 03/31/18 05/30/22 Asha Narvaez APRN-CNP [address] [facility] [address] [place] [address] PCP - Attributed-MSSP 08/17/20 10/16/20 Etienne Florez MD Orthopedic Surgery 12/09/14 [place] [address] [facility] 100 [place] [address] Oncology 09/15/17 [place] [address] [facility] 100 [place] [address] Neurology 06/26/18 Laz [place] [address] [place] [address] [address] [place] [address] Cardiovascular Disease 06/26/18 Russell Moran MD [address] [place] [address] Pulmonary Disease 06/26/18 Yuliya Ibarra MD [address] [facility] [address] [place] [address] Endocrinology 06/26/18 Phuong Callejas DPM [address] [place], [place] [address] Podiatry 06/26/18 Sy Barrientos MD [address] [place] [address] Ophthalmology 06/26/18 Russell Moran MD [address] [place] [address] Pulmonary Disease 06/26/18 Rico Gasca MD [address] [facility] [address] [place] [address] Urology 06/26/18 Elle Landaverde MD [address] [facility] [address] [place] [address] Vascular Surgery 06/26/18 Kirk Truong MD [address] [facility] [address] [place] [address] Gastroenterology 06/26/18 [place] [address] [place] [address] General Surgery 06/26/18 documented as of this encounter
--- OUTSIDE RECORDS SUMMARY | 2024-05-26 12:35 | XMS_ITS | Encounter Summary ---
Author Organization [facility] Address [address] [facility] [place] [address] Care Team Providers Care Vehicle Refinisher Name Role Phone Etienne Florez MD Unavailable Enrique Gonzalez MD Unavailable [phone] Theresa Camargo MD Primary Care Provider Nelson Ross MD Unavailable Laz Valencia MD Unavailable Russell Moran MD Unavailable Yuliya Ibarra MD Unavailable [phone] Phuong Callejas DPM Unavailable Sy Barrientos MD Unavailable Russell Moran MD Unavailable Rico Gasca MD Unavailable [phone] Elle Landaverde MD Unavailable Kirk Truong MD Unavailable [phone] Shira Love DO Unavailable [phone] Sara Schultz MD Unavailable Kasie Haynesecroseann CONLEY-PODIATRY DOCTOR Unavailable [phone] Encounter Details Date Type Department Care Team (Latest Contact Info) Description 12/29/2020 Travel Social History Tobacco Use Types Packs/Day [...] < 140/90 Blood Pressure 127/52(2022 8:09 AM PROCESS PUMPER) No Alisa Jaramillo HEMOGLOBIN A1C < 7.0 Result Component 5.4( 12:00 AM CDT) No Alisa Jaramillo documented as of this encounter Visit Diagnoses Not on filedocumented in this encounter Care Teams Vehicle Refinisher Relationship Specialty Start [place] [address] [address] PCP - General Internal Medicine 03/31/18 05/30/22 Brooke Haynes APRN-PODIATRY DOCTOR [address] [facility] [address] [place] [address] PCP - Attributed-MSSP 10/17/20 09/15/21 Etienne Florez MD Orthopedic Surgery 12/09/14 [place] [address] [place] [address] Oncology 09/15/17 [place] [address] [facility] [address] [place] [address] Neurology 06/26/18 [place] [address] [facility] [address] [place] [address] Cardiovascular Disease 06/26/18 [place] [address] [address] Pulmonary Disease 06/26/18 Yuliya Ibarra MD [address] [facility] [address] [place] [address] Endocrinology 06/26/18 Phuong Callejas DPM [address] [place], [place] [address] Podiatry 06/26/18 Sy Barrientos MD [address] [facility] [place] [address] Ophthalmology 06/26/18 [place] [address] [address] Pulmonary Disease 06/26/18 Rico Gasca MD [address] [facility] [address] [place] [address] Urology 06/26/18 Elle Landaverde MD [address] [facility] [address] [place] [address] Vascular Surgery 06/26/18 Kirk Truong MD [address] [facility] [address] [place] [address] Gastroenterology 06/26/18 [place] [address] [facility] [address] [place] [address] General Surgery 06/26/18 [place] [address] [facility] [address] [place] [address] Pulmonary Disease 11/10/20 documented as of this encounter
--- OUTSIDE RECORDS SUMMARY | 2024-05-26 12:35 | XMS_ITS | Encounter Summary ---
Author Organization [facility] Address [address] [place] [address] Care Team Providers Care Director Treasurer Name Role Phone Etienne Florez MD Unavailable Enrique Gonzalez MD Unavailable [phone] Theresa Camargo MD Primary Care Provider [phone] Nelson Ross MD Unavailable Laz Valencia MD Unavailable Russell Moran MD Unavailable Yuliya Ibarra MD Unavailable Phuong Callejas DPM Unavailable Sy Barrientos MD Unavailable Russell Moran MD Unavailable Rico Gasca MD Unavailable Elle Landaverde MD Unavailable Kirk Truong MD Unavailable [phone] Shira Love DO Unavailable [phone] Asha Narvaez APRN-SARA Unavailable [phone] Reason for Visit * Reason Onset Date Comments Home Health 10/05/2020 Encounter Details Date Type Department Care Team (Late st Contact Info) Description 10/05/2020 Telephone [facility] - Family Medicine [address] [facility] [address] [place] [address] [place] [address] [facility] [address] [place] [address] Home Health Social History Tobacco [...] Telephone Encounter - Bonny Ballesteros APRN-CNP - 10/05/2020 2:53 PM CDT Yes but patient will need a hospital follow up next week Nurse notified * Telephone Encounter - Wanda Castro - 10/05/2020 2:40 PM CDT AW HH would like to know will PCP follow pt for resume home care documented in this encounter Plan of Treatment Not on file documented as of this encounter Goals Goal Patient Goal Type Associated Problems Recent Progress Patient-Stated? 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 8:09 AM ELECTRICAL TROUBLESHOOTER) No Alisa Jaramillo HEMOGLOBIN A1C < 7.0 Result Component 5.4( 12:00 AM CDT) No Alisa Jaramillo documented as of this encounter Visit Diagnoses Not on filedocumented in this encounter Care Teams Director Treasurer Relationship Specialty [place] [address] [facility] [address] [place] [address] PCP - General Internal Medicine 03/31/18 05/30/22 Asha Narvaez, MARINE STEWARD-SINGING MESSENGER [address] [facility] [address] [place] [address] PCP - Attributed-MSSP 08/17/20 10/16/20 Etienne Florez MD Orthopedic Surgery 12/09/14 [place] [address] [place] [address] Oncology 09/15/17 [place] [address] [address] [facility] [address] [place] [phone] Neurology 06/26/18 [place] [address] [facility] [address] [place] [address] Cardiovascular Disease 06/26/18 [place] [address] [address] Pulmonary Disease 06/26/18 Yuliya Ibarra MD [address] [facility] [address] [place] [phone] Endocrinology 06/26/18 Phuong Callejas DPM [address] [place], [place] [address] Podiatry 06/26/18 Sy Barrientos MD [address] [place] [address] [address] Ophthalmology 06/26/18 [place] [address] [id number] Pulmonary Disease 06/26/18 Rico Gasca MD [address] [facility] [address] [address] Urology 06/26/18 Elle Landaverde MD [address] [facility] [address] [address] Vascular Surgery 06/26/18 Kirk Truong MD [address] [facility] [address] [place] [address] Gastroenterology 06/26/18 [place] [address] [address] [address] General Surgery 06/26/18 documented as of this encounter
--- OUTSIDE RECORDS SUMMARY | 2024-05-26 12:35 | XMS_ITS | Encounter Summary ---
Author Organization [facility] Address [address] [facility] [place] [address] Care Team Providers Care Armature Winder Name Role Phone Etienne Florez MD Unavailable Enrique Gonzalez MD Unavailable Theresa Camargo MD Primary Care Provider [phone] Nelson Ross MD Unavailable Laz Valencia MD Unavailable Russell Moran MD Unavailable [phone] Yuliya Ibarra MD Unavailable Phuong Callejas DPM Unavailable Sy Barrientos MD Unavailable [phone] Russell Moran MD Unavailable [phone] Rico Gasca MD Unavailable Elle Landaverde MD Unavailable Kirk Truong MD Unavailable [phone] Shira Love DO Unavailable [phone] Asha Narvaez ADMINISTRATOR SOCIAL WELFARE-[facility] Unavailable [phone] Encounter Details Date Type Department Care Team (Late st Contact Info) Description 10/06/2020 Patient Outreach [facility] - Care Coordination [address] [place] [address] Apple Hayes MSW Social History Tobacco Use Types Packs/Day Years [...] encounter Miscellaneous Notes * Telephone Encounter - Apple Hayes MSW - 10/06/2020 2:03 PM CDT Encounter opened in error. documented in this encounter Plan of Treatment Not on file documented as of this encounter Goals Goal Patient Goal Type Associated Problems Recent Progress Patient-Stated? 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 8:09 AM CERAMICS ENGINEER) No VilmasarthakAlisa marks HEMOGLOBIN A1C < 7.0 Result Component 5.4( 12:00 AM CDT) No AllisonpeterAmberAlisa documented as of this encounter Visit Diagnoses Not on filedocumented in this encounter Care Teams Armature Winder Relationship Specialty Start [place] [address] [facility] [address] [place] [address] PCP - General Internal Medicine 03/31/18 05/30/22 Asha Narvaez, ADMINISTRATOR SOCIAL WELFARE-[facility] [address] [facility] [address] [place] [address] PCP - Attributed-MSSP 08/17/20 10/16/20 Etienne Florez MD Orthopedic Surgery 12/09/14 [place] [address] [facility] [address] [place] [phone] Oncology 09/15/17 [place] [address] [facility] [address] [place] [address] Neurology 06/26/18 [place] [address] [address] Cardiovascular Disease 06/26/18 [place] [address] [address] Pulmonary Disease 06/26/18 Yuliya Ibarar MD [address] [place] [address] Endocrinology 06/26/18 Phuong Callejas DPM [address] [place] [address] Podiatry 06/26/18 Sy Barrientos MD [address] [place] [address] [place] [address] Ophthalmology 06/26/18 [place] [address] [address] Pulmonary Disease 06/26/18 Rico Gasca MD [address] [place] [address] Urology 06/26/18 Elle Landaverde MD [address] [place] [address] Vascular Surgery 06/26/18 Kirk Truong MD [address] [place] [address] Gastroenterology 06/26/18 [place] [address] [place] [address] General Surgery 06/26/18 documented as of this encounter
--- OUTSIDE RECORDS SUMMARY | 2024-05-26 12:35 | XMS_ITS | Encounter Summary ---
Author Organization [facility] Address [address] [facility] [place] [address] Care Team Providers Care Associate Director Data & Analytics Name Role Phone Etienne Florez MD Unavailable Enrique Gonzalez MD Unavailable [phone] Theresa Camargo MD Primary Care Provider [phone] Nelson Ross MD Unavailable Laz Valencia MD Unavailable Russell Moran MD Unavailable Yuliya Ibarra MD Unavailable [phone] Phuong Callejas DPM Unavailable Sy Barrientos MD Unavailable Russell Moran MD Unavailable Rico Gasca MD Unavailable Elle Landaverde MD Unavailable [phone] Kirk Truong MD Unavailable [phone] Shira Love DO Unavailable [phone] Sara Schultz MD Unavailable [phone] Ivy Brooke APRN-[facility] Unavailable [phone] Reason for Visit * Reason Onset Date Comments Home Health 01/09/2021 AW Encounter Details Date Type Department Care Team (Late st Contact Info) Description 01/09/2021 Telephone [facility] - Family Medicine [address] [facility] [address] [place] [address] [place] [address] [facility] [address] [place] [address] Home Health (AW) Social History Tobacco Use Types Packs/Day Years [...] Notes * Telephone Encounter - Alice Jewell Heidy - 01/09/2021 4:11 PM CDT Informed Brandi patient needs to contact GI specialty because she stated patient was already doing miralax and docusate daily. * Telephone Encounter - Brooke Haynes APRN-CNP - 01/09/2021 11:51 AM CDT The linzess comes from GI specialty. They may need to call GI specialist. They may be seeing one from [facility]. We would have her use docusate sodium 100 mg daily and miralax, 1 capful in a glass of water daily. * Telephone Encounter - Alice Jewell - 01/09/2021 11:39 AM CDT Brandi from [facility] contacted office stating patient in constipated. Patient was on Linzess four or five days ago and that didn't help. Brandi informed me to send message to LOTTIE Shetty. documented in this encounter Plan of Treatment Not on file documented as of this encounter Goals Goal Patient Goal Type Associated Problems Recent Progress Patient-Stated? 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 8:09 AM MANUFACTURING ENGINEER SUPERVISOR) No Alisa Jaramillo HEMOGLOBIN A1C < 7.0 Result Component 5.4( 12:00 AM CDT) No Alisa Jaramillo documented as of this encounter Visit Diagnoses Not on filedocumented in this encounter Care Teams Associate Director Data & Analytics Relationship Specialty Start [place] [address] [facility] [address] [place] [address] PCP - General Internal Medicine 03/31/18 05/30/22 Brooke Haynes APRN-CNP [address] [facility] [address] [place] [address] PCP - Attributed-MSSP 10/17/20 09/15/21 Etienne Florez MD Orthopedic Surgery 12/09/14 [place] [address] [facility] [address] [place] [address] Oncology 09/15/17 [place] [address] [facility] 100 [place] [address] Neurology 06/26/18 [place] [address] [facility] [address] [place] [address] Cardiovascular Disease 06/26/18 Russell Moran MD [address] [place] [address] Pulmonary Disease 06/26/18 Yuliya Ibarra MD [address] [facility] [address] [place] [phone] Endocrinology 06/26/18 Phuong Callejas DPM [address] [place] [address] Podiatry 06/26/18 Sy Barrientos MD [address] [place] [address] [place] [address] Ophthalmology 06/26/18 Russell [place] [address] [place] [address] Pulmonary Disease 06/26/18 Rico Gasca MD [address] [facility] [address], [place] [address] Urology 06/26/18 Elle Landaverde MD [address] [facility] [address], [place] [address] Vascular Surgery 06/26/18 Kirk Truong MD [address] [address] Gastroenterology 06/26/18 [place] [address] [facility] [address] [place] [address] General Surgery 06/26/18 [place] [address] [facility] [address] [place] [address] Pulmonary Disease 11/10/20 documented as of this encounter
--- OUTSIDE RECORDS SUMMARY | 2024-05-26 12:35 | XMS_ITS | Encounter Summary ---
Author Organization [facility] Address [address] [facility] [place] [address] Care Team Providers Care Car Supervisor Name Role Phone Etienne Florez MD Unavailable Enrique Gonzalez MD Unavailable [phone] Theresa Camargo MD Primary Care Provider Nelson Ross MD Unavailable Laz Valencia MD Unavailable Russell Moran MD Unavailable Yuliya Ibarra MD Unavailable [phone] Phuong Callejas DPM Unavailable [phone] Sy Barrientos MD Unavailable [phone] Russell Moran MD Unavailable Rico Gasca MD Unavailable [phone] Elle Landaverde MD Unavailable Kirk Truong MD Unavailable [phone] Shira Love DO Unavailable [phone] Sara Schultz MD Unavailable [phone] Kasie Haynesecroseann [employer]LEY-[employer]IDWOR[employer] DRAFTER Unavailable [phone] Encounter Details Date Type Department Care Team (Latest Contact Info) Description 12/08/2020 Travel Social History Tobacco Use Types Packs/Day [...] < 140/90 Blood Pressure 127/52(2022 8:09 AM SUBMARINE CABLE EQUIPMENT TECHNICIAN) No Alias Jaramillo HEMOGLOBIN A1C < 7.0 Result Component 5.4( 12:00 AM CDT) No Alisa Jaramillo documented as of this encounter Visit Diagnoses Not on filedocumented in this encounter Care Teams Car Supervisor Relationship Specialty Start [place] [address] [address] PCP - General Internal Medicine 03/31/18 05/30/22 Brooke Haynes APRN-SOLIDWORKS DRAFTER [address] [facility] [address] [place] [address] PCP - Attributed-MSSP 10/17/20 09/15/21 Etienne Florez MD Orthopedic Surgery 12/09/14 [place] [address] [facility] [address] [place] [address] Oncology 09/15/17 [place] [address] [facility] [address] [place] [address] Neurology 06/26/18 [place] [address] [facility] [address] [place] [address] Cardiovascular Disease 06/26/18 [place] [address] [id number] Pulmonary Disease 06/26/18 Yuliya Ibarra MD [address] [facility] [address] [place] [address] Endocrinology 06/26/18 Phuong Callejas DPM [address] [place], [place] [address] Podiatry 06/26/18 Sy Barrientos MD [address] [facility] [place] [address] Ophthalmology 06/26/18 [place] [address] [address] Pulmonary Disease 06/26/18 Rico Gasca MD [address] [facility] [address] [place] [phone] Urology 06/26/18 Elle Landaverde MD [address] [facility] [address] [place] [address] Vascular Surgery 06/26/18 Kirk Truong MD 224 [facility] [address] [place] [address] Gastroenterology 06/26/18 [place] [address] [facility] [address] [place] [address] General Surgery 06/26/18 [place] [address] [facility] [address] [place] [address] Pulmonary Disease 11/10/20 documented as of this encounter
--- OUTSIDE RECORDS SUMMARY | 2024-05-26 12:35 | XMS_ITS | Encounter Summary ---
Author Organization [facility] Address [address] [place] [address] Care Team Providers Care Seal Delivery Vehicle Officer Name Role Phone Etienne Florez MD Unavailable Enrique Gonzalez MD Unavailable [phone] Theresa Camargo MD Primary Care Provider Nelson Ross MD Unavailable Laz Valencia MD Unavailable Russell Moran MD Unavailable Yuliya Ibarra MD Unavailable Phuong Callejas DPM Unavailable Sy Barrientos MD Unavailable [phone] Russell Moran MD Unavailable Rico Gasca MD Unavailable Elle Landaverde MD Unavailable Kirk Truong MD Unavailable [phone] Shira Love DO Unavailable [phone] Sara Schultz MD Unavailable [phone] Brooke Haynes [facility] Unavailable [phone] Reason for Visit * Reason Comments Refill Request Encounter Details Date Type Department Care Team (Late st Contact Info) Description 03/27/2021 Refill [facility] Family Medicine [address] [facility] [address] [place] [address] [place] [address] [facility] [address] [place] [address] Refill Request Social History Tobacco [...] < 140/90 Blood Pressure 127/52(2022 8:09 AM TAPPET ADJUSTER) No Alisa Jaramillo HEMOGLOBIN A1C < 7.0 Result Component 5.4( 12:00 AM CDT) No Alisa Jaramillo documented as of this encounter Visit Diagnoses Not on filedocumented in this encounter Care Teams Seal Delivery Vehicle Officer Relationship Specialty Start [place] [address] [facility] [address] [address] [place], [place] [address] PCP - General Internal Medicine 03/31/18 05/30/22 Brooke Haynes APRN-SOLIDS CONTROL TECHNICIAN [address] [facility] [address] [address] [place] [address] PCP - Attributed-MSSP 10/17/20 09/15/21 Etienne Florez MD Orthopedic Surgery 12/09/14 [place] [address] [facility] [address] [place] [address] Oncology 09/15/17 [place] [address] [facility] [address] [place] [address] Neurology 06/26/18 [place] [address] [facility] [address] [place] [address] Cardiovascular Disease 06/26/18 [place] [address] [id number] Pulmonary Disease 06/26/18 Yuliya Ibarra MD [address] [facility] [address] [place] [address] Endocrinology 06/26/18 Phuong Callejas DPM [address] [place], [place] [address] Podiatry 06/26/18 Sy Barrientos MD [address] [place] [address] [place] [address] Ophthalmology 06/26/18 [place] [address] [address] Pulmonary Disease 06/26/18 Rico Gasca MD [address] [facility] [address] [place] [address] Urology 06/26/18 Elle Landaverde MD [address] [facility] [address], [place] [address] Vascular Surgery 06/26/18 Kirk Truong MD [address] [address] Gastroenterology 06/26/18 [place] [address] [place] [address] General Surgery 06/26/18 [place] [address] [place] [address] Pulmonary Disease 11/10/20 documented as of this encounter
--- OUTSIDE RECORDS SUMMARY | 2024-05-26 12:35 | XMS_ITS | Encounter Summary ---
Author Organization [facility] Address [address] [facility] [place] [address] Care Team Providers Care Bobbin Sorter Name Role Phone Etienne Florez MD Unavailable Enrique Gonzalez MD Unavailable [phone] Theresa Camargo MD Primary Care Provider Nelson Ross MD Unavailable Laz Valencia MD Unavailable Russell Moran MD Unavailable [phone] Yuliya Ibarra MD Unavailable Phuong Callejas DPM Unavailable Sy Barrientos MD Unavailable [phone] Russell Moran MD Unavailable Rico Gasca MD Unavailable Elle Landaverde MD Unavailable [phone] Kirk Truong MD Unavailable [phone] Shira Love DO Unavailable [phone] Sara Schultz MD Unavailable [phone] Ivy Brooke 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 Social History Tobacco Use Types Packs/Day Years [...] Sign Reading Time Taken Comments Blood Pressure 120/62 03/06/2021 10:56 AM CDT Pulse 76 03/06/2021 10:56 AM CDT Temperature - - Respiratory Rate 14 03/06/2021 10:56 AM CDT Oxygen Saturation 94% 03/06/2021 10:56 AM CDT Inhaled Oxygen Concentration - - Weight 68 kg (150 lb) 03/06/2021 10:56 AM CDT Height 165.1 cm (5' 5 ) 03/06/2021 10:56 AM CDT Body Mass Index 24.96 03/06/2021 10:56 AM CDT documented in this encounter Functional [...] as of this encounter Progress Notes * Nelson Ross MD - 03/06/2021 11:10 AM CDT CC: HSP IH: Has been in and out of the hospital with non neuro issues. Has had some constipation, gluteal bleeding and PEs. Now on Eliquis. Eating better and has lost weight. Had thrombectomy in hospital [facility] embolus. Was off blood thinner because of gluteal bleed post fall. Leg weakness no change. Has indwelling olivas. No stroke symptoms. Speech slurs on occasion. Fatigues easily. Trouble sleeping. Not compliant with CPAP Outpatient Medications Marked as Taking for the 03/06/21 encounter (Office Visit) with Nelson Ross MD Medication Sig Dispense Refill ??? ALPRAZolam (XANAX) 0.25 MG tablet Take 0.25 mg by mouth 2 times daily as needed for Anxiety ??? amitriptyline (ELAVIL) 25 MG tablet TAKE 2 TABLETS BY MOUTH EVERY DAY AT BEDTIME 180 tablet 3 ??? 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 apixaban (ELIQUIS) 5 MG tablet Take 1 (one) tablet by mouth 2 times daily Take 10 mg po bid till 10/05 and then continue 5 mg po bid there after (Patient taking differently: Take 5 mg by mouth 2 times daily ) 60 tablet 11 ??? BD PEN NEEDLE [...] Inject 10 Units subcutaneously once daily ??? levoFLOXacin (LEVAQUIN) 500 MG tablet Take 500 mg by mouth once daily ??? levothyroxine (SYNTHROID) 75 MCG [...] Take 1 packet by mouth once daily Past Medical History: Diagnosis Date ??? Asthma [...] T1cN0(i-)M0, stage IA. ER pos 97% (strong), OH pos 23% (moderate), Her-2 neg (1+ on [...] Type 2 diabetes mellitus without complication 01/07/2011 Exam: BP 120/62 Pulse 76 Resp 14 Ht 1.651 m (5' 5 ) Wt 68 kg (150 lb) SpO2 94% BMI 24.96 kg/m2 Alert In WC EOMS OK FFOV Minimal leg movement Non ambulatory Reflexes brisk at knees No clonus Distal vib loss FTN OK [place] ASSESSMENT: HSP Recent saddle embolus on Eliquis Neurogenic constipation Neurogenic bladder Hx of stroke Memory loss PLAN: Same Elavil Continue Eliquis Discuss bowel training Use CPAP 6 month OV documented in this encounter Plan of Treatment Not on file documented as of this encounter Goals Goal Patient Goal Type Associated Problems Recent Progress Patient-Stated? 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 documented in this encounter Care Teams Bobbin Sorter Relationship Specialty [place] [address] [place] [address] PCP - General Internal Medicine 03/31/18 05/30/22 Brooke Haynes APRN-ELECTRON BEAM WELDING MACHINE OPERATOR [address] [place] [address] PCP - Attributed-MSSP 10/17/20 09/15/21 Etienne Florez MD Orthopedic Surgery 12/09/14 [place] [address] [place] [phone] Oncology 09/15/17 [place] [address] [place] [address] Neurology 06/26/18 [place] [address] [facility] [address] [place] [address] Cardiovascular Disease 06/26/18 [place] [address] [address] Pulmonary Disease 06/26/18 Yuliya Ibarra MD [address] [facility] [address] [place] [phone] Endocrinology 06/26/18 Phuong Callejas DPM [address] [place] [address] Podiatry 06/26/18 Sy Barrientos MD [address] [place] [address] [place] [address] Ophthalmology 06/26/18 [place] [address] [address] Pulmonary Disease 06/26/18 Rico Gasca MD [address] [facility] [address] [place] [address] Urology 06/26/18 Elle Landaverde MD [address] [facility] [address] [place] [address] Vascular Surgery 06/26/18 Kirk Truong MD [address] [facility] [address] [address] Gastroenterology 06/26/18 [place] [address] [facility] [place] [phone] General Surgery 06/26/18 [place] [address] [facility] [address] [place] [address] Pulmonary Disease 11/10/20 documented as of this encounter
--- OUTSIDE RECORDS SUMMARY | 2024-05-26 12:35 | XMS_ITS | Encounter Summary ---
Author Organization [facility] Address [address] [place] [address] Care Team Providers Care Curer Acid Drum Name Role Phone Etienne Florez MD Unavailable Enrique Gonzalez MD Unavailable [phone] Theresa Camargo MD Primary Care Provider [phone] Nelson Ross MD Unavailable Laz Valencia MD Unavailable Russell Moran MD Unavailable Yuliya Ibarra MD Unavailable Phuong Callejas DPM Unavailable Sy Barrientos MD Unavailable [phone] Russell Moran MD Unavailable Rico Gasca MD Unavailable [phone] Elle Landaverde MD Unavailable Kirk Truong MD Unavailable Shira Love DO Unavailable [phone] Sara Schultz MD Unavailable [phone] Brooke Haynes RESIDENTIAL DOOR UNIT INSTALLER-CAMERA TUNING ENGINEER Unavailable [phone] Reason for Visit * Reason Onset Date Comments MEDICATION REFILL 12/08/2020 Encounter Details Date Type Department Care Team (Late st Contact Info) Description 12/08/2020 Refill [facility] Family Medicine [address] [address] [facility]esteros [facility] [address] [facility] [address] [place] [address] MEDICATION REFILL Social History Tobacco [...] 140/90 Blood Pressure 127/52(2022 8:09 AM BUSINESS ANALYTICS MANAGER) No Alisa Jaramillo HEMOGLOBIN A1C < 7.0 Result Component 5.4( 1 12:00 AM CDT) No Alisa Jaramillo documented as of this encounter Visit Diagnoses Not on filedocumented in this encounter Care Teams Curer Acid Drum Relationship Specialty [place] [address] [facility] [facility] [address] [place] [address] PCP - General Internal Medicine 03/31/18 05/30/22 Brooke Haynes, RESIDENTIAL DOOR UNIT INSTALLER-CAMERA TUNING ENGINEER [address] [facility] [address] [place] [address] PCP - Attributed-MSSP 10/17/20 09/15/21 Etienne Florez MD Orthopedic Surgery 12/09/14 [place] [address] [facility] [address] [place] [address] Oncology 09/15/17 [place] [address] [facility] [address] [place] [address] Neurology 06/26/18 [place] [address] [facility] [address] [place] [address] Cardiovascular Disease 06/26/18 [place] [address] [id number] Pulmonary Disease 06/26/18 Yuliya Ibarra MD [address] [facility] [address] [place] [address] Endocrinology 06/26/18 Phuong Callejas DPM [address] [place], [place] [id number] Podiatry 06/26/18 Sy Barrientos MD [address] [place] [address] Ophthalmology 06/26/18 [place] [address] [id number] Pulmonary Disease 06/26/18 Rico Gasca MD [address] [facility] [address] [place] [address] Urology 06/26/18 Elle Landaverde MD [address] [facility] [address] [place] [address] Vascular Surgery 06/26/18 Kirk Truong MD [address] [facility] [address] [place] [address] Gastroenterology 06/26/18 [place] [address] [place] [address] General Surgery 06/26/18 [place] [address] [place] [address] Pulmonary Disease 11/10/20 documented as of this encounter
--- OUTSIDE RECORDS SUMMARY | 2024-05-26 12:35 | XMS_ITS | Encounter Summary ---
Author Organization [facility] Address [address] [place] [address] Care Team Providers Care Diamond Driller Helper Name Role Phone Etienne Florez MD Unavailable Enrique Gonzalez MD Unavailable [phone] Theresa Camargo MD Primary Care Provider Nelson Ross MD Unavailable [phone] Laz Valencia MD Unavailable Russell Moran MD Unavailable [phone] Yuliya Ibarra MD Unavailable Phuong Callejas DPM Unavailable Sy Barrientos MD Unavailable Russell Moran MD Unavailable [phone] Rico Gasca MD Unavailable Elle Landaverde MD Unavailable [phone] Kirk Truong MD Unavailable Shira Love DO Unavailable [phone] Sara Schultz MD Unavailable Brooke Haynes Unavailable Encounter Details Date Type Department Care Team (Late st Contact Info) Description 12/08/2020 Orders Only [facility] - Family Medicine [address] [place] [address] [place] [address] [place] [address] Social History Tobacco Use Types [...] as of this encounter Progress Notes * Bonny Ballesteros APRN-CNP - 12/08/2020 2:43 PM CDT She is actually on apixaban (ELIQUIS 5 mg No coumadin Ok to take Cipro Pt notified * Theresa Camargo MD - 12/08/2020 2:31 PM CDT Urine culture reviewed and it looks like she needs Cipro. Patient is on Coumadin so we will call her puddler pile driving who manages her protime INR to see if we can switch her to Cipro and have them adjusther INR. She is currently on Bactrim. call given to Cardiology. Cardiology was not present so we will call the patient and let her know to confirm with Cardiology about her Coumadin dose before starting Cipro. We will also talk with her home nurse about the plan.Since it is Friday and the office will close soon we will again reinforced to the patient that she should talk with Cardiology before switching over to Cipro. documented in this encounter Plan of Treatment Not on file documented as of this encounter Goals Goal Patient Goal Type Associated Problems Recent Progress Patient-Stated? 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 8:09 AM TELEPHONE ORDER DISPATCHER) No Alisa Jaramillo HEMOGLOBIN A1C < 7.0 Result Component 5.4( 12:00 AM CDT) No Alisa Jaramillo documented as of this encounter Visit Diagnoses Not on filedocumented in this encounter Care Teams Diamond Driller Helper Relationship Specialty Start [place] [address] [facility] [address] [place] [address] PCP - General Internal Medicine 03/31/18 05/30/22 Brooke Haynes, YAEL-SHOP WORKER [address] [facility] [address] [place] [address] PCP - Attributed-MSSP 10/17/20 09/15/21 Etienne Florez MD Orthopedic Surgery 12/09/14 [place] [address] [address] [facility] [address] [place] [address] Oncology 09/15/17 [place] [address] [address] [facility] [address] [place] [address] Neurology 06/26/18 [place] [address] [facility] [address] [place] [address] Cardiovascular Disease 06/26/18 Russell Moran MD [address] [place] [id number] Pulmonary Disease 06/26/18 Yuliya Ibarra MD [address] [facility] [address] [place] [address] Endocrinology 06/26/18 Phuong Callejas DPM [address] [place], [place] [phone] Podiatry 06/26/18 Sy Barrientos MD [address] [place] [address] [place] [address] Ophthalmology 06/26/18 Russell Moran MD [address] [place] [address] Pulmonary Disease 06/26/18 Rico Gasca MD [address] [facility] [address] [place] [address] Urology 06/26/18 Elle Landaverde MD [address] [facility] [address] [place] [address] Vascular Surgery 06/26/18 Kirk Truong MD [address] [address] Gastroenterology 06/26/[address] [place] [address] [facility] [address] [place] [address] General Surgery 06/26/18 [place] [address] [place] [address] Pulmonary Disease 11/10/20 documented as of this encounter
--- OUTSIDE RECORDS SUMMARY | 2024-05-26 12:35 | XMS_ITS | Encounter Summary ---
Author Organization [facility] Address [address] [place] [facility] [place] [address] Care Team Providers Care Chief Mate Name Role Phone Etienne Florez MD Unavailable Enrique Gonzalez MD Unavailable [phone] Theresa Camargo MD Primary Care Provider Nelson Ross MD Unavailable [phone] Laz Valencia MD Unavailable Russell Moran MD Unavailable Yuliya Ibarra MD Unavailable Phuong Callejas DPM Unavailable [phone] Sy Barrientos MD Unavailable [phone] Russell Moran MD Unavailable Rico Gasca MD Unavailable Elle Landaverde MD Unavailable Kirk Truong MD Unavailable [phone] Shira Love DO Unavailable [phone] Sara Schultz MD Unavailable [phone] Kasie Haynesecroseann CONLEY-GUT SORTER Unavailable [phone] Encounter Details Date Type Department Care Team (Latest Contact Info) Description 12/25/2020 Travel Social History Tobacco Use Types Packs/Day [...] have Coronavirus / COVID-19? No / Unsure 12/25/2020 9:34 AM CDT documented as of this encounter [...] < 140/90 Blood Pressure 127/52(2022 8:09 AM SUSTAINABLE SYSTEMS ANALYST) No Alisa Jaramillo HEMOGLOBIN A1C < 7.0 Result Component 5.4( 12:00 AM CDT) No Alisa Jaramillo documented as of this encounter Visit Diagnoses Not on filedocumented in this encounter Care Teams Chief Mate Relationship Specialty [place] [address] [address] PCP - General Internal Medicine 03/31/18 05/30/22 Brooke Haynes APRN-GUT SORTER [address] [facility] [address] [address] [place] [address] PCP - Attributed-MSSP 10/17/20 09/15/21 Etienne Florez MD Orthopedic Surgery 12/09/14 [place] [address] [address] [facility] [address] [place] [address] Oncology 09/15/17 [place] [address] [facility] [address] [place] [address] Neurology 06/26/18 [place] [address] [facility] [address] [place] [address] Cardiovascular Disease 06/26/18 [place] [address] [id number] Pulmonary Disease 06/26/18 Yuliya Ibarra MD [address] [facility] [address] [place] [address] Endocrinology 06/26/18 Phuong Callejas DPM [address] [place], [place] [phone] Podiatry 06/26/18 Sy Barrientos MD [address] [facility] [place] [address] Ophthalmology 06/26/18 [place] [address] [address] Pulmonary Disease 06/26/18 Rico Gasca MD [address] [facility] [address] [place] [address] Urology 06/26/18 Elle Landaverde MD [address] [facility] [address] [place] [address] Vascular Surgery 06/26/18 Kirk Truong MD [address] [facility] [address] [place] [address] Gastroenterology 06/26/18 [place] [address] [facility] [address] [place] [address] General Surgery 06/26/[address] [place] [address] [facility] [address] [place] [address] Pulmonary Disease 11/10/20 documented as of this encounter
--- OUTSIDE RECORDS SUMMARY | 2024-05-26 12:35 | XMS_ITS | Encounter Summary ---
Author Organization [facility] Address [address] [place] [address] Care Team Providers Care Boxing Trainer Name Role Phone Etienne Florez MD Unavailable [phone] Enrique Gonzalez MD Unavailable [phone] Theresa Caamrgo MD Primary Care Provider Nelson Ross MD Unavailable Laz Valencia MD Unavailable Russell Moran MD Unavailable [phone] Yuliya Ibarra MD Unavailable Phuong Callejas DPM Unavailable Sy Barrientos MD Unavailable Russell Moran MD Unavailable Rico Gasca MD Unavailable Elle Landaverde MD Unavailable Kirk Truong MD Unavailable [phone] Shira Love Unavailable [phone] Sara Schultz MD Unavailable Brooke Haynes [facility] Unavailable [phone] Reason for Visit * Reason Comments Follow-up Encounter Details Date Type Department Care Team (Late st Contact Info) Description 12/04/2020 1:30 PM CDT Office Visit [facility] Family Medicine [address] [place] [address] [place] [address] [place] [address] Type 2 diabetes mellitus without complication, with long-term current use of insulin (HCC) (Primary Dx); Mixed hyperlipidemia; Hyperparathyroidism (HCC); Coronary artery disease involving [place] heart without angina pectoris, unspecified vessel or lesion type; History of TIA (transient ischemic attack); Lymphatic edema; Chronic idiopathic constipation; Anemia, unspecified type; Primary hypothyroidism; Wheelchair bound Social History Tobacco Use Types Packs/Day Years [...] Sign Reading Time Taken Comments Blood Pressure 116/52 12/04/2020 1:42 PM CDT Pulse 85 12/04/2020 1:42 PM CDT Temperature 36.6 ??C (97.9 ??F) 12/04/2020 1:42 PM CD T Respiratory Rate 18 12/04/2020 1:42 PM CDT Oxygen Saturation 97% 12/04/2020 1:42 PM CDT Inhaled Oxygen Concentration - - Weight 80.3 kg (177 lb) 12/04/2020 1:42 PM CDT s tated weight Height 165.1 cm (5' 5 ) 12/04/2020 1:42 PM CDT Body Mass Index 29.45 12/04/2020 1:42 PM CDT documented in this encounter Functional Status [...] as of this encounter Progress Notes * Theresa Camargo MD - 12/04/2020 1:39 PM CDT SUBJECTIVE: Perla Leon is a 80 year old female with Chief Complaint Patient presents with ??? Follow-up [...] T1cN0(i-)M0, stage IA. ER pos 97% (strong), MS pos 23% (moderate), Her-2 neg (1+ on [...] Type 2 diabetes mellitus without complication 01/07/2011 Social History Socioeconomic History ??? Marital status: Spouse name: Not on file ??? Number of children: 3 ??? Years of education: Not on file ??? Highest education level: Not on file Occupational History ??? 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 Smoking status: Never Smoker ??? Smokeless tobacco: Never Used Vaping Use ??? Vaping Use: Never used [...] Social History Narrative ??? Not on file Family History Problem Relation Name Age of Onset ??? Cancer - Breast Mother ??? CAD (Coronary Artery Disease) Father CHF ??? CAD (Coronary Artery Disease) Brother CHF Current Outpatient Medications Medication ??? albuterol HFA (PROAIR HFA) 108 (90 BASE) MCG/ACT inhaler ??? amitriptyline (ELAVIL) 25 MG tablet ??? anastrozole (ARIMIDEX) 1 MG tablet ??? apixaban (ELIQUIS) 5 MG tablet ??? BD PEN NEEDLE HAYDEN U/F 32G X 4 MM MISC ??? calcium-vitamin D (OS-MCKENNA 500 + D) 500-200 mg-unit tablet ??? canagliflozin (INVOKANA) 100 MG tablet ??? Cranberry-Vitamin C (AZO CRANBERRY URINARY TRACT) 250-60 MG ??? Cyanocobalamin (B-12) 1000 MCG TBCR ??? denosumab (PROLIA) 60 MG/ML SC injection ??? dorzolamide (TRUSOPT) 2 % ophthalmic solution ??? esomeprazole (NEXIUM) 40 MG capsule ??? flecainide (TAMBOCOR) 50 MG tablet ??? FREESTYLE LITE STRIPS test strip ??? furosemide (LASIX) 40 MG tablet ??? glimepiride (AMARYL) 1 MG tablet ??? insulin glargine (LANTUS) pen ??? levothyroxine (SYNTHROID) 50 MCG tablet ??? metOLazone (ZAROXOLYN) 2.5 MG tablet ??? multivitamin with iron (ONE A DAY WITH IRON) tablet ??? potassium chloride ER (KLOR-CON) 20 MEQ tablet ??? PROLENSA 0.07 % opthalmic solution ??? rosuvastatin (CRESTOR) 10 MG tablet ??? SITagliptin (JANUVIA) 100 MG tablet ??? spironolactone (ALDACTONE) 25 MG tablet ??? verapamil SR 24hr (VERELAN) 120 MG capsule ??? vitamin D3 (CHOLECALCIFEROL) 25 MCG (1000 UNITS) tablet ??? Wheat Dextrin (BENEFIBER PO) No current facility-administered medications for this visit. family member attended visit with her and help with history today. HPI: here for follow up on: Diabetes, cholesterol, hypothyroidism, history of TIA history of coronary disease and heart murmur and history of left ventricular hypertrophy. She saw the nurse practitioner couple months ago with issues with constipation and fecal incontinence. She has anemia as well in her white count was up just a bit on the last check. Still having constipation. She has a friend who was a icu clerk who goes to check on her and gives her medication to help. She takes benefiber. Here today with family who helps with history. She is well attended at home. She has people who help her. Sleeping ok. Appetite good. No chest pain. No SOB/wheezing. No abdominal pain. No nvdc. No edema. Needs to refill meds and update labs. Patient Care Team: Theresa Camargo MD as PCP - General (Internal Medicine) Asha Narvaez APRN-CNP as PCP - [facility] Etienne Florez MD (Orthopedic Surgery) Enrique Gonzalez MD (Oncology) Nelson Ross MD (Neurology) Laz Valencia MD (Cardiovascular Disease) Wm Krishan Moran MD (Pulmonary Disease) Yuliya Ibarra MD (Endocrinology) Phuong Callejas DPM (Podiatry) Sy Barrientos MD (Ophthalmology) Wm Krishan Moran MD (Pulmonary Disease) Rico Gasac MD (Urology) Elle Landaverde MD (Vascular Surgery) Kirk Truong MD (Gastroenterology) Shira Love DO (General Surgery) Sara Schultz MD (Pulmonary Disease) Review of Systems: per HPI OBJECTIVE: Wt Readings from Last 3 Encounters: 12/04/20 80.3 kg (177 lb) 11/10/20 80.3 kg (177 lb) 11/02/20 80.3 kg (177 lb) Temp Readings from Last 3 Encounters: 12/04/20 97.9 ??F (36.6 ??C) (Temporal) 11/10/20 97 ??F (36.1 ??C) 11/02/20 (!) 95.5 ??F (35.3 ??C) (Skin) BP Readings from Last 3 Encounters: 12/04/20 116/52 11/10/20 124/60 11/02/20 110/60 Pulse Readings from Last 3 Encounters: 12/04/20 85 11/10/20 78 11/02/20 88 Body mass index is 29.45 kg/m??. General: alert, cooperative, no distress, oriented to person, place, and time, well appearing. Appears stated age. She is in a wheelchair Heart: normal rate, regular rhythm, normal S1, S2, no murmurs, rubs, clicks or gallops Lungs: clear to auscultation bilaterally Extremities: no clubbing, cyanosis or edema Neuro: negative findings: alert, oriented x3 speech normal in context and clarity memory intact grossly cranial nerves II-XII intact Psych: non focal Recent Labs Component Name 10/12/20 1209 10/04/20 0417 10/03/20 0402 10/02/20 0507 10/02/20 0507 SODIUM 136 136 134* - 133* POTASSIUM 3.4* 4.7 4.5 - 4.6 CHLORIDE 98 107 106 - 107 CO2 26 21* 22* - 21* BUN 35* 13 12 - 11 CREATININE 1.00 0.91 0.74 - 0.76 GLUCOSE 110* 153* 142* - 157* CALCIUM 10.8* 9.8 9.8 - 10.0 ALBUMIN - 3.2 3.2 - 3.2 ALKPHOS - 97 99 - 94 ALT - 20 18 - 18 AST - 15 16 - 16 TBIL - 0.3 0.3 - 0.3 TPROT - 5.7* 5.7* - 5.7* EGFR 53 59 >60 - >60 - = values in this interval not displayed. Recent Labs Component Name 10/04/20 0417 10/03/20 0402 10/03/20 0402 10/02/20 0507 10/02/20 0507 WBC 11.1* - 11.5* - 12.3* RBC 4.20 - 4.16 - 4.12 HGB 10.7* - 10.4* - 10.3* HCT 35.7* - 34.3* - 33.9* MCV 85.0 - 82.5 - 82.3 MCH 25.5* - 25.0* - 25.0* MCHC 30.0* - 30.3* - 30.4* PLTCOUNT 261 - 255 - 249 NEUTMANPCT - - 81* - 78* LYMPHMANPCT - - 9* - 10* MONOMANPCT - - 8 - 7 EOSMANPCT - - 1 - 3 BANDMANPCT - - - - 2 METAMANPCT - - 1* - - PLATELETSEST - - Normal - - RBCMORPH - - Normal - - WBCMORPH - - Normal - Normal - = values in this interval not displayed. Recent Labs Component Name 11/26/19 0855 06/12/17 0823 12/30/16 0430 CHOL 124 113 89 TRIG 183* 148 114 HDL 32* 35* 34* LDLCALC 55 55 32 Recent Labs Component Name 09/15/20 0337 03/05/19 1302 11/06/18 1043 HGBA1C 5.6 6.4* 5.3 Recent Labs Component Name 05/05/20 1353 11/26/19 0855 11/06/18 1043 TSH 2.74 2.812 2.9182 Recent Labs Component Name 10/12/20 1209 11/26/19 0855 03/05/19 1302 [id number] 33.8 28.5* 28.4* HEALTH MAINTENANCE: Health Maintenance Topic Date Due ??? ZOSTER VACCINE (2 of 3) 10/19/2007 ??? INFLUENZA VACCINE (1) 01/17/2021 ??? MAMMOGRAM 02/22/2021 ??? DIABETES-HGB A1C 03/17/2021 ??? HCC (Chart Reviewer Use Only) 03/22/2021 ??? ANNUAL MEDICARE WELLNESS VISIT 06/09/2021 ??? DIABETES-FOOT EXAM WITH MONOFILAMENT 06/09/2021 ??? DIABETES-EYE EXAM 07/27/2021 ??? DTAP/TDAP/TD VACCINES (4 - Td or Tdap) 08/29/2025 ??? Colorectal Cancer Screening 02/17/2029 ??? PNEUMOCOCCAL VACCINE 65+ Completed ??? COVID-19 VACCINE Completed ??? DEPRESSION SCREENING Completed ??? BONE DENSITY TESTING Completed ??? HEPATITIS B VACCINE Aged Out ??? HIB VACCINE Aged Out ??? MENINGOCOCCAL VACCINE Aged Out ASSESSMENT: ICD-10-CM 1. Type 2 diabetes mellitus without complication, with long-term current use of insulin E11.9 CBC WITH DIFFERENTIAL Z79.4 COMPREHENSIVE METABOLIC PANEL HEMOGLOBIN A1C 2. Mixed hyperlipidemia E78.2 LIPID PROFILE W TCHOL/HDL 3. Hyperparathyroidism E21.3 4. Coronary artery disease involving [place] heart without angina pectoris, unspecified vessel or lesion type I25.10 5. History of TIA (transient ischemic attack) Z86.73 6. Lymphatic edema I89.0 7. Chronic idiopathic constipation K59.04 8. Anemia, unspecified type D64.9 CBC WITH DIFFERENTIAL IRON + TIBC PANEL 9. Primary hypothyroidism E03.9 TSH PLAN: Orders Placed This Encounter ??? CBC WITH DIFFERENTIAL Order Specific Question: Release to patient Answer: Immediate ??? IRON + TIBC PANEL Order Specific Question: Release to patient Answer: Immediate ??? COMPREHENSIVE METABOLIC PANEL Order Specific Question: Release to patient Answer: Immediate ??? LIPID PROFILE W TCHOL/HDL Order Specific Question: Release to patient Answer: Immediate ??? TSH Order Specific Question: Release to patient Answer: Immediate ??? HEMOGLOBIN A1C Order Specific Question: Release to patient Answer: Immediate I did not change any of her current medications. She is seeing Oncology on a regular basis. She will stay on her flecainide Lasix and Zaroxolyn. She is treated for heart disease blood pressure and cholesterol. She will continue Crestor for cholesterol. She will stay on verapamil and spironolactonealso for heart disease in blood pressure and edema. So continue Invokana for her diabetes. She has had no more constipation. And she is keeping up with Oncology on a regular basis. She has her needs met at home. documented in this encounter Plan of Treatment Scheduled Orders Name Type Priority Associated Diagnoses Orde r Schedule LIPID PROFILE W TCHOL/HDL Lab Routine Mixed hyperlipidemia Ordered: 12/04/2020 documented as of this encounter Goals Goal Patient Goal Type Associated Problems Recent Progress Patient-Stated? 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 8:09 AM NETWORK PRICING CONSULTANT) No Alisa Jaramillo HEMOGLOBIN A1C < 7.0 Result Component 5.4( 12:00 AM CDT) No Alisa Jaramillo documented as of this encounter Procedures Procedure Name Priority Date/Time Associated Diagnosis Comments HEMOGLOBIN A1C Routine 12/08/2020 12:00 AM CDT Type 2 diabetes mellitus without complication, with long-term current use of insulin (HCC) CBC W AUTO DIFFERENTIAL Routine 12/08/2020 12:00 AM CDT Type 2 diabetes mellitus without complication, with long-term current use of insulin (HCC) Anemia, unspecified type COMPREHENSIVE METABOLIC PANEL Routine 12/08/2020 12:00 AM CDT Type 2 diabetes mellitus without complication, with long-term current use of insulin (HCC) IRON + TIBC PANEL Routine 12/08/2020 12: 00 AM CDT Anemia, unspecified type TSH Routine 12/08/2020 12:00 AM CDT Primary hypothyroidism documented in this encounter Results * HEMOGLOBIN A1C (12/08/2020 12:00 AM CDT) Hemoglobin A1c 5.4 4.8 - 5.6 % [facility] INSURANCE BILL Comment: ? . ? Prediabetes: 5.7 - 6.4 ? Diabetes: >6.4 ? Glycemic control for adults with diabetes: <7.0 Blood BLOOD SPECIMEN / Unknown 12/08/2020 12/08/2020 Narrative Resulting Agency Comment [facility]: [facility] [address] ??[facility] [id number] Theresa Camargo MD LAB - CHEMISTRY ROWAN QUIROZ [facility] INSURANCE BILL [address] [place] [address] * (ABNORMAL) TSH (12/08/2020 12:00 AM CDT) TSH 7.950(H) 0.450 - 4.500 uIU/mL [facility] INSURANCE BILL Blood BLOOD SPECIMEN / Unknown 12/08/2020 12/08/2020 Narrative Resulting Agency Comment [facility]: [facility] [address] ??[facility] [id number] Theresa Camargo MD LAB - CHEMISTRY ROWAN QUIROZ [facility] INSURANCE BILL [address] [place] [address] * (ABNORMAL) COMPREHENSIVE METABOLIC PANEL (12/08/2020 12:00 AM CDT) Glucose 169(H) 65 - 99 mg/dL [facility] INSURANCE BILL BUN 39(H) 8 - 27 mg/dL [facility] INSURANCE BILL Creatinine 0.87 0.57 - 1.00 mg/dL [facility] INSURANCE BILL eGFR by MDRD 62 >59 mL/min/1.7 3 [facility] INSURANCE BILL eGFR by MDRD 72 >59 mL/min/1.7 3 [facility] INSURANCE BILL Comment: [facility] currently reports eGFR in compliance with the current ??recommendations of the National Kidney Foundation. [facility] will ??update reporting as new guidelines are published from the NKF-ASN ??Task force. BUN/Creatinine Ratio 45(H) 12 - 28 [facility] INSURANCE BILL Sodium 135 134 - 144 mmol/L [facility] INSURANCE BILL Potassium 3.3(L) 3.5 - 5.2 mmol/L [facility] INSURANCE BILL Chloride 94(L) 96 - 106 mmol/L [facility] INSURANCE BILL CO2 25 20 - 29 mmol/L [facility] INSURANCE BILL Calcium 11.4(H) 8.7 - 10.3 mg/dL [facility] INSURANCE BILL Protein Total 6.9 6.0 - 8.5 g/dL [facility] INSURANCE BILL Albumin 4.4 3.6 - 4.6 g/dL [facility] INSURANCE BILL Globulin Total 2.5 1.5 - 4.5 g/dL [facility] INSURANCE BILL Albumin/Globulin Ratio 1.8 1.2 - 2.2 [facility] INSURANCE BILL Bilirubin Total 0.2 0.0 - 1.2 mg/dL [facility] INSURANCE BILL Alkaline Phosphatase 83 48 - 121 IU/L [facility] INSURANCE BILL AST 19 0 - 40 IU/L [facility] INSURANCE BILL ALT 21 0 - 32 IU/L [facility] INSURANCE BILL Blood BLOOD SPECIMEN / Unknown 12/08/2020 12/08/2020 Narrative Resulting Agency Comment Lab Testing performed at: [employer] [place] [employer] [address] [facility] ??[facility] [id number] Theresa Camargo MD LAB - CHEMISTRY ROWAN QUIROZ Performing Organization Address City/[facility] [[email or web address]] Co de Phone Number [facility] INSURANCE BILL [address] [place] [address] * (ABNORMAL) IRON + TIBC PANEL (12/08/2020 12:00 AM CDT) TIBC 421 250 - 450 ug/dL [facility] INSURANCE BILL UIBC 398(H) 118 - 369 ug/dL [facility] INSURANCE BILL Iron 23(L) 27 - 139 ug/dL [facility] INSURANCE BILL Iron Saturation 5(LL) 15 - 55 % [facility] INSURANCE BILL Blood BLOOD SPECIMEN / Unknown 12/08/2020 12/08/2020 Narrative Resulting Agency Comment Lab Testing performed at: [place] [facility] ??[facility] [id number] Theresa Camargo MD LAB - CHEMISTRY ROWAN QUIROZ Performing Organization Address City/[facility]/ZIP Co de Phone Number [facility] INSURANCE BILL [address] [place] [address] * (ABNORMAL) CBC WITH DIFFERENTIAL (12/08/2020 12:00 AM CDT) WBC 13.7(H) 3.4 - 10.8 x10E3/uL [facility] INSURANCE BILL RBC 4.45 3.77 - 5.28 x10E6/uL [facility] INSURANCE BILL Hemoglobin 10.6(L) 11.1 - 15.9 g/dL [facility] INSURANCE BILL Hematocrit 35.4 34.0 - 46.6 % [facility] INSURANCE BILL MCV 80 79 - 97 fL [facility] INSURANCE BILL MCH 23.8(L) 26.6 - 33.0 pg [facility] INSURANCE BILL MCHC 29.9(L) 31.5 - 35.7 g/dL [facility] INSURANCE BILL RDW 15.5(H) 11.7 - 15.4 % [facility] INSURANCE BILL Platelet Count 400 150 - 450 x10E3/uL [facility] INSURANCE BILL Granulocytes % 75 Not Estab. % [facility] INSURANCE BILL Lymphocytes % 9 Not Estab. % [facility] INSURANCE BILL Monocytes % 13 Not Estab. % [facility] INSURANCE BILL Eosinophils % 1 Not Estab. % [facility] INSURANCE BILL Basophils % 1 Not Estab. % [facility] INSURANCE BILL Immature Cells NOT NEEDED [facility] INSURANCE BILL Comment:Ancillary determined the test is not needed. Granulocytes Absolute 10.3(H) 1.4 - 7.0 x10E3/uL [facility] INSURANCE BILL Lymphocytes Absolute 1.3 0.7 - 3.1 x10E3/uL [facility] INSURANCE BILL Monocytes Absolute 1.7(H) 0.1 - 0.9 x10E3/uL [facility] INSURANCE BILL Eosinophils Absolute 0.2 0.0 - 0.4 x10E3/uL [facility] INSURANCE BILL Basophils Absolute 0.1 0.0 - 0.2 x10E3/uL [facility] INSURANCE BILL Immature Granulocytes 1 Not Estab. % [facility] INSURANCE BILL Immature Granulocytes Absolute 0.2(H) 0.0 - 0.1 x10E3/uL [facility] INSURANCE BILL Comment: (An elevated percentage of Immature Granulocytes has not been found to be clinically significant as a sole clinical predictor of disease. Does NOT include bands or blast cells. ?? associated physiological leukocytosis may also show increased immature granulocytes without clinical significance.) nRBC NOT NEEDED [facility] INSURANCE BILL Comment:Ancillary determined the test is not needed. Comment Hematology NOT NEEDED [facility] INSURANCE BILL Comment:Ancillary determined the test is not needed. Blood BLOOD SPECIMEN / Unknown 12/08/2020 12/08/2020 Narrative Resulting Agency Comment Lab Testing performed at: [facility] [place] [address] ??[facility] [id number] Theresa Camargo MD LAB - HEMATOLOGY ORD ERABLES [facility] INSURANCE BILL [address] [place] [address] documented in this encounter Visit Diagnoses Diagnosis Type 2 diabetes mellitus without complication, with long-term current use of insulin (HCC)- Primary Mixed hyperlipidemia Hyperparathyroidism (HCC) Coronary artery disease involving [place] heart without angina pectoris, unspecified vessel or lesion type History of TIA (transient ischemic attack) Transient ischemic attack (TIA), and cerebral infarction without residual deficits Lymphatic edema Other lymphedema Chronic idiopathic constipation Unspecified constipation Anemia, unspecified type Primary hypothyroidism Unspecified hypothyroidism Wheelchair bound Wheelchair dependence documented in this encounter Care Teams Boxing Trainer Relationship Specialty [place] [address] [place] [address] PCP - General Internal Medicine 03/31/18 05/30/22 Brooke Haynes, FORMING ROLL OPERATOR HEAVY DUTY-PURCHASING AGENT [address] [place] [address] PCP - Attributed-MSSP 10/17/20 09/15/21 Etienne Florez MD Orthopedic Surgery 12/09/14 [place] [address] [place] [id number] Oncology 09/15/17 [place] [address] [facility] [address] [place] [phone] Neurology 06/26/18 [place] [address] [facility] [address] [place] [address] Cardiovascular Disease 06/26/18 [place] [address] [place] [address] Pulmonary Disease 06/26/18 Yuliya Ibarra MD [address] [facility] [address] [place] [address] Endocrinology 06/26/18 Phuong Callejas DPM [address] [place] [address] Podiatry 06/26/18 Sy Barrientos MD [address] [place] [address] [place] [address] Ophthalmology 06/26/18 [place] [address] [place] [address] Pulmonary Disease 06/26/18 Rico Gasca MD [address] [place] [address] Urology 06/26/18 Elle Landaverde MD [address] [place] [address] Vascular Surgery 06/26/18 Kirk Truong MD [address] [place] [address] [address] [place] [address] Gastroenterology 06/26/18 [place] [address] [facility] [address] [place] [address] General Surgery 06/26/18 [place] [address] [place] [address] Pulmonary Disease 11/10/20 documented as of this encounter
--- OUTSIDE RECORDS SUMMARY | 2024-05-26 12:36 | XMS_ITS | Encounter Summary ---
Author Organization [facility] Address [address] [facility] [place] [address] Care Team Providers Care Occupational Psychologist Name Role Phone Etienne Florez MD Unavailable nErique Gonzalez MD Unavailable [phone] Theresa Camargo MD Primary Care Provider [phone] Nelson Ross MD Unavailable [phone] Laz Valencia MD Unavailable Russell Moran MD Unavailable Yuliya Ibarra MD Unavailable [phone] Phuong Callejas DPM Unavailable [phone] Sy Barrientos MD Unavailable Russell Moran MD Unavailable Rico Gasca MD Unavailable [phone] Elle Landaverde MD Unavailable Kirk Truong MD Unavailable [phone] Shira Love DO Unavailable [phone] Asha Narvaez [employer] [facility] [facility] Unavailable [phone] Reason for Visit * Reason Onset Date Comments Transitional Care 09/21/2020 Encounter Details Date Type Department Care Team (Late st Contact Info) Description 09/21/2020 Transitional Care [facility] - Care Coordination [facility] [place] [address] Brooke Vazquez LPC Transitional Care Social History Tobacco Use Types [...] or have serious hearing difficult y? No 09/15/2020 Is person blind or have serious difficulty seein g? Yes 09/15/2020 Does person have serious dif ficulty walking/climbing stairs? Yes 09/15/2020 Does person have difficulty dressing/bathing? Ye s 09/15/2020 Does person have difficulty doing errands alone? Yes 09/15/2020 Cognitive Status Response Date of Assessm ent Does person have difficulty concentrating/remembering/making decisions? No 09/15/2020 documented as of this encounter Miscellaneous Notes * Telephone Encounter - rBooke Vazquez LPC - 09/21/2020 12:11 PM CDT Opted out documented in this encounter Plan of Treatment Not on file documented as of this encounter Goals Goal Patient Goal Type Associated Problems Recent Progress Patient-Stated? 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 8:09 AM SUPERVISOR INSPECTION ROOM) No Alisa Jaramillo HEMOGLOBIN A1C < 7.0 Result Component 5.4( 1 12:00 AM CDT) No Alisa Jaramillo documented as of this encounter Visit Diagnoses Not on filedocumented in this encounter Care Teams Occupational Psychologist Relationship Specialty Start [place] [address] [facility] [address] [place], [place] [id number] PCP - General Internal Medicine 03/31/18 05/30/22 Asha Narvaez, [employer] SORTER-CHANNEL MACHINE OPERATOR [address] [facility] [address] [place] [address] PCP - Attributed-MSSP 08/17/20 10/16/20 Etienne Florez MD Orthopedic Surgery 12/09/14 [place] [address] [facility] [address] [place] [address] Oncology 09/15/17 [place] [address] [phone] Neurology 06/26/18 [place] [address] [facility] [address] [place] [address] Cardiovascular Disease 06/26/18 [place] [address] [id number] Pulmonary Disease 06/26/18 Yuliya Ibarra MD [address] [place] [phone] Endocrinology 06/26/18 Phuong Callejas DPM [address] [place], [place] [id number] Podiatry 06/26/18 Sy Barrientos MD [address] [place] [address] Ophthalmology 06/26/18 [place] [address] [id number] Pulmonary Disease 06/26/18 Rico Gasca MD [address] [facility] [address] [place] [address] Urology 06/26/18 Elle Landaverde MD [address] [facility] [address] [place] [address] Vascular Surgery 06/26/18 Kirk Truong MD [address] [facility] [address] [place] [address] Gastroenterology 06/26/18 [place] [address] [address] [facility] [address] [place] [address] General Surgery 06/26/18 documented as of this encounter
--- OUTSIDE RECORDS SUMMARY | 2024-05-26 12:36 | XMS_ITS | Encounter Summary ---
Author Organization [facility] Address [address] [place] [address] Care Team Providers Care [employer] Counselor Name Role Phone Etienne Florez MD Unavailable Enrique Gonzalez MD Unavailable [phone] Theresa Camargo MD Primary Care Provider Nelson Ross MD Unavailable Laz Valencia MD Unavailable Russell Moran MD Unavailable [phone] Yuliya Ibarra MD Unavailable Phuong Callejas DPM Unavailable [phone] Sy Barrientos MD Unavailable [phone] Russell Moran MD Unavailable [phone] Rico Gasca MD Unavailable [phone] Elle Landaverde MD Unavailable Kirk Truong MD Unavailable [phone] Shira Love DO Unavailable [phone] Asha Narvaez PROTOZOOLOGY TEACHER-[facility] Unavailable [phone] Reason for Visit * Reason Onset Date Comments Transitional Care 10/05/2020 Encounter Details Date Type Department Care Team (Late st Contact Info) Description 10/05/2020 Transitional Care [facility] - Care Coordination [facility] [place] [address] Apple Hayes, JORGE Transitional Care Social History Tobacco Use Types [...] encounter Miscellaneous Notes * Telephone Encounter - Theresa Camargo MD - 10/12/2020 8:38 AM CDT PROVIDER ASSESSMENT OF PATIENT CONTACT WITHIN 2 BUSINESS DAYS OF DISCHARGE Are the discharge records available and reviewed? Yes Are there pending tests that need reviewed? No Is there need to discuss patient with other health care providers? No Is there need for additional referrals, either for other providers or community resources? No * Telephone Encounter - Apple Hayes MSW - 10/06/2020 2:37 PM CDT Physician to address items 1 through 4 below: 1. Please see Meds & Orders section for specific details or concern listed below: No concerns at this time 2. Orders/concerns: 3. Please enter dotphrase TCMPROVIDER 4. Please Close Encounter ---------Encounter Note This encounter was an Active engagement with the patient. Transition of Care Assessment ROBSON-General Do you understand your discharge instructions (if no, obtain D/C instructions and if possible walk through the instructions w/patient: Yes Did you receive new medications, or were changes made to existing medications (complete Med Rec): Yes If yes, do you have the medications ? (If no, assess barriers and assist patient in obtaining medications): Yes Were you ordered durable Medical equipment (crutches, walker, etc.): No Do you have follow up appointments scheduled as recommended following your discharge (if no, discuss barriers with the patient and provide resources and/or referrals for the patients): No Do you need help with (ADL's, transportation etc.): No PHQ Assessment TOTAL POINT SCORE: 0 (10/06/2020 2:36 PM) Med Reconciliation: . Discharge Medication list was reviewed and compared with Current Medications. Patient declined med rec due to : Meds managed by someone else Current Medications List: Current Outpatient Medications Medication Sig ??? albuterol HFA (PROAIR HFA) 108 (90 BASE) MCG/ACT inhaler Take 2 Puffs by mouth every 4 hours asneeded. ??? amitriptyline (ELAVIL) 25 MG tablet TAKE 2 TABLETS BY MOUTH EVERY DAY AT BEDTIME ??? 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 apixaban (ELIQUIS) 5 MG tablet Take 2 (two) tablets by mouth 2 times daily Take 10 mg po bid till 10/05 and then continue 5 mg po bid there after ??? BD PEN NEEDLE HAYDEN U/F 32G [...] 40 MG capsule TAKE 1 CAPSULE DAILY ??? flecainide (TAMBOCOR) 50 MG tablet Take 50 mg by mouth 2 times daily ??? FREESTYLE LITE STRIPS test strip TEST BLOOD SUGARS THREE TIMES A DAY ??? furosemide (LASIX) 40 MG tablet Take 1 (one) tablet by mouth once daily ??? glimepiride (AMARYL) 1 MG tablet Take [...] TABLET BY MOUTH FOUR TIMES A DAY ??? PROLENSA 0.07 % opthalmic solution Instill 1 drop into right eye once daily ??? rosuvastatin (CRESTOR) 10 MG tablet Take 1 tablet by mouth at bedtime ??? 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 Med req not fully completed , Pt said her daughter manages her medications. SW went over new prescriptions post discharge, and pt wrote them down to discuss with daughter. Pt did not plan on making hospital f/u stating she already has an appt scheduled for 10/23/[address] Camargo. SW told her that was nearly 3wks away and PCP requested f/up in a week. With the encouragement of ALEX pt agreed to schedule a f/up appt with the RESEARCH NEUROPSYCHOLOGIST she has seen in the past. SW scheduled f/up with Marcos Haynes on 10/12/20. Pt also agreed to schedule f/up with pulmonology. She sees a provider at [facility] for herCPAP and was very concerned about that. She declined f/up with him and at the end of the call SW transferred her to Dr Schultz's office for scheduling. She plans to discuss Cpap with her at the time ofvisit. Pt has not yet started HHC but knows it will be 3 days a week. She does need help dressing and takes a bath at the sink but denies need for bath aide or bone worker, stating her family helps her andprovides transportation. Pt says she has limited mobility, my legs don't work so good but has all needed DME and oxygen. She said she is in good spirits, sharing her family gave her a giant tablet with over 100 pictures onit, of her grandchildren, and that makes her happy to just sit and look at. ALEX will continue to outreach to ensure pulmonology scheduled and HHC engaged. * Telephone Encounter - Apple Hayes MSW - 10/05/2020 12:41 PM CDT ALEX outreached [facility]. SW spoke to fulfillment coordinator, Lisha. AW will call PCP office and ask if they will continue to follow for them to resume care. Lisha will leave message for nurse with SW contact information and ask to inform pt that she doesneed to f/up with street car mechanic and to call and schedule f/up, vs wait to speak with PCP about need. SW will continue outreach. * Telephone Encounter - Apple Hayes MSW - 10/05/2020 12:37 PM CDT ROBSON outreach x1. SW phoned patient, disconnected then second attempt no VM system to leave a message. ALEX sent Social Toolshart message to pt and will continue to outreach. documented in this encounter Plan of Treatment Not on file documented as of this encounter Goals Goal Patient Goal Type Associated Problems Recent Progress Patient-Stated? 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 8:09 AM COSTUME MISTRESS) No Alisa Jarmaillo HEMOGLOBIN A1C < 7.0 Result Component 5.4( 12:00 AM CDT) No Alisa Jaramillo documented as of this encounter Visit Diagnoses Not on filedocumented in this encounter Care Teams [employer] Counselor Relationship Specialty [place] [address] [facility] [address] [place] [address] PCP - General Internal Medicine 03/31/18 05/30/22 Asha Narvaez APRN-EDI COORDINATOR [address] [facility] [address] [place] [address] PCP - Attributed-MSSP 08/17/20 10/16/20 Etienne Florez MD Orthopedic Surgery 12/09/14 [place] [address] [phone] Oncology 09/15/17 [place] [address] [phone] Neurology 06/26/18 L[place] [address] [place] [address] [address] [place] [address] Cardiovascular Disease 06/26/18 Russell Moran MD [address] [place] [address] Pulmonary Disease 06/26/18 Yuliya Ibarra MD [address] [facility] [address] [place] [address] Endocrinology 06/26/18 Phuong Callejas DPM [address] [place] [address] Podiatry 06/26/18 Sy Barrientos MD [address] [place] [address] Ophthalmology 06/26/18 Russell [place] [address] [place] [address] Pulmonary Disease 06/26/18 Rico Gasca MD [address] [place] [address] Urology 06/26/18 Elle Landaverde MD [address], [place] [address] Vascular Surgery 06/26/18 Kirk Truong MD [address] [facility] [address], [place] [address] Gastroenterology 06/26/18 [place] [address] [facility] [address] [place] [address] General Surgery 06/26/18 documented as of this encounter
--- OUTSIDE RECORDS SUMMARY | 2024-05-26 12:36 | XMS_ITS | Encounter Summary ---
Author Organization [facility] Address [address] [place] [address] Care Team Providers Care Java Development Team Lead Name Role Phone Etienne Florez MD Unavailable Enrique Gonzalez MD Unavailable [phone] Theresa Camargo MD Primary Care Provider Nelson Ross MD Unavailable [phone] Laz Valencia MD Unavailable Russell Moran MD Unavailable [phone] Yuliya Ibarra MD Unavailable [phone] Phuong Callejas DPM Unavailable Sy Barrientos MD Unavailable Russell Moran MD Unavailable Rico Gasca MD Unavailable Elle Landaverde MD Unavailable Kirk Truong MD Unavailable [phone] Shira Love DO Unavailable [phone] Brice Asha Heidy CONLEYMINE ADMINISTRATOR SUPERVISOR Unavailable [phone] Reason for Visit * Reason Onset Date Comments Patient Requested Call 09/22/2020 Encounter Details Date Type Department Care Team (Late st Contact Info) Description 09/22/2020 Telephone [facility] [address] [facility] [address] [place] [address] [place] [address] [facility] [address] [place] [address] Patient Requested Call Social History Tobacco Use Types Packs/Day Years [...] Telephone Encounter - Bonny Ballesteros APRN-CNP - 09/25/2020 9:04 AM CDT Yes but she will need a hospital follow Nurse notified * Telephone Encounter - Savage Damir - 09/22/2020 11:19 AM CDT Who is calling? Anthony If other than self is caller listed on the HIPAA? no If caller is anyone other than listed above, where are they calling from? Health Care What is the reason for call? Anthony would like to know if Dr. Camargo and [employer] will be following patient for Home Health Care Services. Expected Response from the Clinic? Anthony is requesting a a back. Thank You documented in this encounter Plan of Treatment Not on file documented as of this encounter Goals Goal Patient Goal Type Associated Problems Recent Progress Patient-Stated? 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 8:09 AM CEMENT PAVER) No Alisa Jaramillo HEMOGLOBIN A1C < 7.0 Result Component 5.4( 12:00 AM CDT) No Alisa Jaramillo documented as of this encounter Visit Diagnoses Not on filedocumented in this encounter Care Teams Java Development Team Lead Relationship Specialty [place] [address] [address] PCP - General Internal Medicine 03/31/18 05/30/22 Asha Narvaez, CUSTOMS PATROL OFFICER-MINE ADMINISTRATOR SUPERVISOR [address] [address] PCP - Attributed-MSSP 08/17/20 10/16/20 Etienne Florez MD Orthopedic Surgery 12/09/14 [place] [address] [address] Oncology 09/15/17 [place] [address] [phone] Neurology 06/26/18 [place] [address] [facility] [address] [place] [address] Cardiovascular Disease 06/26/18 [place] [address] [address] Pulmonary Disease 06/26/18 Yuliya Ibarra MD [address] [place] [address] Endocrinology 06/26/18 Phuong Callejas DPM [address] [place] [address] Podiatry 06/26/18 Sy Barrientos MD [address] [address] Ophthalmology 06/26/18 [place] [address] [id number] Pulmonary Disease 06/26/18 Rico Gasca MD [address] [place] [address] Urology 06/26/18 Elle Landaverde MD [address] [place] [address] Vascular Surgery 06/26/18 Kirk Truong MD [address] [place] [address] Gastroenterology 06/26/18 [place] [address] [facility] [address] [place] [address] General Surgery 06/26/18 documented as of this encounter
--- OUTSIDE RECORDS SUMMARY | 2024-05-26 12:36 | XMS_ITS | Encounter Summary ---
Author Organization [facility] Address [address] [address] Care Team Providers Care Dot Etcher Apprentice Name Role Phone Etienne Florez MD Unavailable Enrique Gonzalez MD Unavailable [phone] Theresa Camargo MD Primary Care Provider Nelson Ross MD Unavailable [phone] Laz Valencia MD Unavailable Russell Moran MD Unavailable Yuliya Ibarra MD Unavailable Phuong Callejas DPM Unavailable [phone] Sy Barrientos MD Unavailable Russell Moran MD Unavailable Rico Gasca MD Unavailable [phone] Elle Landaverde MD Unavailable [phone] Kirk Truong MD Unavailable [phone] Shira Love Unavailable [phone] Asha Narvaez DOG RAISER-BLUE LINE TRIMMER Unavailable [phone] Reason for Visit * Reason Comments Hospital Follow-up Encounter Details Date Type Department Care Team (Travon st Contact Info) Description 09/26/2020 1:30 PM CDT Office Visit [facility] [address] [facility] [address] [place] [address] [facility] [address] [facility] [address] [place] [address] Respiratory distress (Primary Dx) Social History Tobacco Use Types [...] Sign Reading Time Taken Comments Blood Pressure 110/54 09/26/2020 1:56 PM CDT Pulse 88 09/26/2020 1:56 PM CDT Temperature 36.1 ??C (97 ??F) 09/26/2020 1:56 PM CDT Respiratory Rate 20 09/26/2020 1:56 PM CDT Oxygen Saturation 93% 09/26/2020 1:56 PM CDT Inhaled Oxygen Concentration - - Weight 80.3 kg (177 lb) 09/26/2020 1:56 PM CDT Height 165.1 cm (5' 5 ) 09/26/2020 1:56 PM CDT Body Mass Index 29.45 09/26/2020 1:56 PM CDT documented in this encounter Functional [...] No 09/15/2020 documented as of this encounter Progress Notes * Brooke Haynes, YAEL-BLUE LINE TRIMMER - 09/26/2020 2:05 PM CDT SUBJECTIVE: Perla Leon is a 79 year old female here for: Chief Complaint Patient presents with ??? Hospital Follow-up Past Medical History: Diagnosis Date ??? [...] T1cN0(i-)M0, stage IA. 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 No LVI. Margin neg S/p 09/08/2017 sentinel node biopsy ([place]): 2 neg nodes Med onc:Dr. Gonzalez: adjuvant [...] 2 diabetes mellitus without complication 01/07/2011 HPI: pt was recently in hospital 09-14-2020 and discharged on 09-20-2020 for hip pain and possible hematoma but is going to see an ortho/oncologist per Dr. Carrera. She was noted yesterday to have a cough and was short of breath. Home care felt she was having crackles on the right, using accessory muscles and elevated heart rate. Today she feels some better, not as weak but is still short of breath. Anna ble to talk in complete sentences. Review of systems negative except as noted [...] 3 ??? PROLENSA 0.07 % opthalmic solution PUT 1 DROP INTO RIGHT EYE TWICE A DAY 2 ??? rosuvastatin (CRESTOR) 10 MG tablet [...] ??? Diltiazem Swelling ??? Metformin Diarrhea ??? Black Pepper [Piper Longum] Unknown ??? Fluticasone Diarrhea ??? Salmeterol Diarrhea ??? Sotalol Other Hair loss Social History Tobacco Use ??? Smoking status: Never Smoker ??? Smokeless tobacco: Never Used Substance Use Topics ??? Alcohol use: No Alcohol/week: 0.0 standard drinks . OBJECTIVE: Vitals: 09/26/20 1356 BP: 110/54 Pulse: 88 Resp: 20 Temp: 97 ??F (36.1 ??C) SpO2: 93% Weight: 80.3 kg (177 lb) Height: 1.651 [...] neck nor supraclavicular region. Lungs - unlabored, crackles in bases, symmetric air entry Negative egophony, fair anterior forced expiration without coarseness nor wheezing, positive fremitus. Unable to speak in complete sentences. Heart - normal rate, regular rhythm, normal S1, S2, no murmurs, rubs, clicks or gallops, no edema, peripheral pulses normal, no carotid bruits. Abdomen - bowel sounds present, soft, nontender, nondistended, no masses or hepatosplenomegaly Extremities - unsteady gait, full range of motion, no clubbing nor cyanosis. Skin - warm, dry, no rashes in visible areas. Neuro - PERRLA, CN ll through Xll intact. ASSESSMENT Encounter Diagnosis Name Primary? Respiratory distress Yes PLAN: No orders of the defined types were placed in this encounter. To ER at [facility] in wheelchair, accompanied by MA and daughter. Further recommendations pending the above results and patient's clinical course. Follow-up visit prn The patient indicates understanding of these issues and agrees with the plan. documented in this encounter Plan of Treatment Not on file documented as of this encounter Goals Goal Patient Goal Type Associated Problems Recent Progress Patient-Stated? 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 8:09 AM SILVERWARE ETCHER) No Alisa Jaramillo HEMOGLOBIN A1C < 7.0 Result Component 5.4( 12:00 AM CDT) No Alisa Jaramillo documented as of this encounter Visit Diagnoses Diagnosis Respiratory distress- Primary Other dyspnea and respiratory abnormality documented in this encounter Care Teams Dot Etcher Apprentice Relationship Specialty Start [place] [address] [facility] [address] [place] [address] PCP - General Internal Medicine 03/31/18 05/30/22 Asha Narvaez APRN-CNP [address] [facility] [address] [place] [address] PCP - Attributed-MSSP 08/17/20 10/16/20 Etienne Florez MD Orthopedic Surgery 12/09/14 [place] [address] [phone] Oncology 09/15/17 [place] [address] [phone] Neurology 06/26/18 L[place] [address] [place] [address] [address] [place] [address] Cardiovascular Disease 06/26/18 Russell Moran MD [address] [place] [address] Pulmonary Disease 06/26/18 Yuliya Ibarra MD [address] [facility] [address] [place] [address] Endocrinology 06/26/18 Phuong Callejas DPM [address] [place] [address] Podiatry 06/26/18 Sy Barrientos MD [address] [place] [address] [place] [address] Ophthalmology 06/26/18 Russell Moran MD [address] [place] [address] Pulmonary Disease 06/26/18 Rico Gasca MD [address] [address] Urology 06/26/18 Elle Landaverde MD [address] [address] Vascular Surgery 06/26/18 Kirk Truong MD [address] [address] Gastroenterology 06/26/18 [place] [address] [place] [address] General Surgery 06/26/18 documented as of this encounter
--- OUTSIDE RECORDS SUMMARY | 2024-05-26 12:36 | XMS_ITS | Encounter Summary ---
Author Organization [facility] Address [address] [place] [address] Care Team Providers Care Outreach Librarian Name Role Phone Etienne Florez MD Unavailable Enrique Gonzalez MD Unavailable [phone] Theresa Camargo MD Primary Care Provider [phone] Nelson Ross MD Unavailable [phone] Laz Valencia MD Unavailable Russell Moran MD Unavailable Yuliya Ibarra MD Unavailable Phuong Callejas DPM Unavailable [phone] Sy Barrientos MD Unavailable [phone] Russell Moran MD Unavailable Rico Gasca MD Unavailable [phone] Elle Landaverde MD Unavailable [phone] Kirk Truong MD Unavailable [phone] Shira Love DO Unavailable [phone] Asha Narvaez [facility] Unavailable Reason for Visit * Reason Comments Pain Leg Patient reports pain and swelling to left leg X3 days, reports unable to bear weight on left leg anymore. Pt also reports left hip pain. * Auth/Cert Specialty Diagnoses / Procedures Referred By Alejandrina t Referred To Contact Referral ID Status Reason Start Date Expiration Date Visits Re quested Visits Authorized [id number] 1 1 Encounter Details Date Type Department Care Team (Late st Contact Info) Description 09/14/2020 2:51 PM CDT - 09/20/2020 7:30 PM CDT Hospital Encounter [facility] Pulmonary Med [address] [place] [id number] Maryjane Khan MD [address] [place] [address] Mahad Walsh MD Need updated address Jaren Herrera MD [facility] [place] [address] [place] [address] Elieser Mccartney MD [facility] [address] [place] [address] Teri Espana MD [facility] [address] Allen Navarro MD [facility] [address] Emergency Medicine Discharge Disposition: Home Health Care Svc Social History Tobacco Use Types Packs/Day Years [...] Sign Reading Time Taken Comments Blood Pressure 169/46 09/20/2020 4:49 PM CDT Pulse 77 09/20/2020 4:49 PM CDT Temperature 36.8 ??C (98.2 ??F) 09/20/2020 4:49 PM CD T Respiratory Rate 18 09/20/2020 4:49 PM CDT Oxygen Saturation 93% 09/20/2020 4:49 PM CDT Inhaled Oxygen Concentration - - Weight 77.1 kg (170 lb) 09/14/2020 2:48 PM CDT Height 165.1 cm (5' 5 ) 09/14/2020 2:48 PM CDT Body Mass Index 28.29 09/14/2020 2:48 PM CDT documented in this encounter Functional [...] No 09/15/2020 documented as of this encounter Discharge Summaries * Allen Navarro MD - 09/20/2020 1:08 PM CDT Hospitalist Discharge Summary [facility] Primary care physician Theresa Camargo MD Admit date: 09/14/2020 Discharge date: 09/20/2020 Discharge Physician: Allen Navarro MD Condition at discharge: stable Disposition: Relative's home, Home health Presentation on admission Patient with past medical history listed above including familial spastic paraplegia, CAD on aspirin and Plavix, history of breast cancer, following up with Oncology, diabetes mellitus, history of paroxysmal atrial fibrillation, not on anticoagulation, thyroid disease, GERD, hypertension, hyperlipidemia, and headaches ?? patient presented to the ER for difficulty ambulating, she usually ambulates with a walker with difficulty, is becoming more difficult in the past 3 days, she noticed left-sided pain status causing left leg to give out, she was seen by her home health RN today and was told to some swelling on her left calf, so she was advised to present to the ER for DVT workup as well as difficulty ambulating and left hip pain her pain is constant, worsening in the last 3 days, is not radiating, no back pain, she has chronic urinary catheter, otherwise she denies any symptoms such as fever or chills, cough or shortness of breath, chest pain or pressure urinary changes Hospital Course/Principle diagnosis left hip pain / left calf pain Has not fallen but she does think she stretched her hip too much when she was trying to put on socks CT lumbar spine with multilevel DJD MRI - L gluteus medius muscle with acute or subacute IM hematoma vs neoplasm, rpt MRI with contrastin 1-2 months PT/OT to see Per Dr Carrera, plan for OP F/U with ortho oncologist for F/U MRI. All other chronic medical conditions were managed conservatively with home medications, able to work with PT, OT recommends home healthversus senior care facility. Discussed with patient, family prefers discharged home with home health. Patient discharged to follow-up with orthopedics/ortho oncologist with follow-up MRI as scheduled. Diabetes mellitus type 2 On lantus amaryl and invokana on hold. On sliding scale insulin while in the hospital. ?? CKD 2-3 Stable creatinine K replaced ?? Hyperlipidemia On statin ?? Mild hyponatremia noted ?? Spastic paraplegia, familial Has been following with Dr Ross for years Has chronic olivas EXAM: Day of Discharge General appearance: alert, cooperative, no distress HEENT: moist mucosa Heart: regular rhythm, normal S1 and S2 Lungs: breath sounds symmetric; no rales or wheezes Abdomen: soft , non-tender, with normal bowel sounds, Olivas catheter in place. Extremities: no cyanosis or edema ?? Consults : Treatment Team: Attending Provider: Allen Navarro MD [phone] [employer] Mechanic: iLvia Randle RN Consulting Physician: Russell Sheets MD [phone] Registered Nurse: Brissa Shelley RN [phone] Student Nurse: Lilli Peguero Diagnostic Studies CT LUMBAR SPINE NON CONTRAST Result Date: 09/16/2020 CT lumbar spine noncontrast CT coronal [...] calcification of the abdominal aorta. The patient isstatus post cholecystectomy. Scoliosis Multilevel degenerative changes Mild anterolisthesis L4 upon L5 L4-5 mild central stenosis Other findings as above *Reading Radiologist: Chi Mendieta on 09/16/2020 at 10:08 AM XR CHEST 1VW PORTABLE Result Date: 09/15/2020 Portable AP chest INDICATION: Occasional cough COMPARISON: Chest x-ray 08/06/2018 FINDINGS: Diffuse vascular calcifications. Stable cardiomegaly. No infiltrates. Stable aortic calcifications. No pneumothorax or pleural effusion. *Reading Radiologist: Shakira García on 09/15/2020 at 9:04 AM MRI HIP LEFT WO CONTRAST Result Date: 09/18/2020 MRI LEFT HIP WITHOUT CONTRAST CLINICAL INDICATION: Progressive worsening left hip pain and limited range of motion. COMPARISON: Left hip x-ray series 09/14/2020 TECHNIQUE: Multiplanar multisequence MRimaging of the left hip was performed without [...] intramuscular hematoma versus neoplasm. Intense edema noted withinthe left tensor fascia jailyn muscle and adjacent fat deep to the iliotibial band consistent with a grade 1 muscle strain. No other sites of altered muscle signal. Diffuse nonloculated subcutaneous soft tissue swelling throughout the lateral left hip. Mild fluid- filled distention of the left trochanteric bursa. Anatomic [...] of the neurovascular structures within normal limits. Mildfree pelvic fluid. Olivas catheter decompresses the bladder. Moderate stool-filled distention of therectum. PREDOMINANTLY LOW SIGNAL MILDLY HETEROGENEOUS MASS SITUATED [...] HIP. NO ACUTE OSSEOUS ABNORMALITY. Edited by Kera Rodgers on 09/18/2020 9:45 AM *Reading Radiologist: Shakira García on 09/18/2020 at 9:47 AM XR PELVIS W LEFT HIP 2VW Result Date: 09/14/2020 EXAM: XR PELVIS W LEFT HIP 2VW*[id number] INDICATION: Pain in left hip, pelvic pain COMPARISON: none available FINDINGS: There is joint space narrowing at bilateral hips with no fracture, dislocation or osseous destruction. *Reading Radiologist: Adan Norton on 09/14/2020 at 5:11 PM Labs Recent Labs Component Name 09/20/2052509/19/2041809/18/20 0405 WBC 11.8* 10.3 10.8* HGB 11.6* 12.1 12.2 HCT 37.1 39.2 38.6 PLTCOUNT 319 308 301 Recent Labs Component Name 09/20/2052509/19/20418 09/18/20 0405 SODIUM 136 135* 134* POTASSIUM 3.4* 3.5 3.5 CHLORIDE 103 103 101 CO2 23 22* 23 BUN 23* 25* 28* CREATININE 0.88 0.80 0.84 GLUCOSE 164* 171* 160* CALCIUM 9.6 9.8 10.2 No results for input(s): TROPONIN in the last 31856 hours. Patient Instructions Current Discharge Medication List CONTINUE taking these medications which have NOT CHANGED Instructions Authorizing Provider amitriptyline 25 MG tablet Commonly known as: Elavil Quantity Dispensed: 60 tablet TAKE 2 TABLETS BY MOUTH EVERY DAY AT BEDTIME Nelson Ross MD anastrozole 1 MG tablet Commonly known as: Arimidex Quantity Dispensed: 90 tablet TAKE 1 TABLET DAILY FOR 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 Enrique Gonzalez MD AZO Cranberry Urinary Tract 250-60 MG Generic drug: Cranberry-Vitamin C Take 2 tablets by mouth once daily BD Pen Needle Maddi U/F 32G X 4 MM Misc Generic drug: Insulin Pen Needle USE TO INJECT INSULIN ONCE DAILY BENEFIBER PO Take 1 packet by mouth once daily Cyanocobalamin 1000 MCG Take by mouth once daily. denosumab 60 MG/ML SC injection Commonly known as: Prolia Inject 60 mg subcutaneously Every 180 days dorzolamide 2 % ophthalmic solution Commonly known as: Trusopt Instill 1 drop into both eyes 2 times daily esomeprazole 40 MG capsule Commonly known as: NexIUM Quantity Dispensed: 90 capsule TAKE 1 CAPSULE DAILY Theresa Camargo MD flecainide 50 MG tablet Commonly known as: Tambocor Take 50 mg by mouth 2 times daily FREESTYLE LITE STRIPS test strip Generic drug: blood glucose TEST BLOOD SUGARS THREE TIMES A DAY furosemide 40 MG tablet Commonly known as: Lasix Quantity Dispensed: 90 tablet Take 1 (one) tablet by mouth once daily Theresa Camargo MD glimepiride 1 MG tablet Commonly known as: Amaryl Take 1 mg by mouth 3 times daily 2 tabs in the AM, 2 tabs at noon and 1 tab at bedtime insulin glargine pen Commonly known as: Lantus Inject 10 Units subcutaneously once daily Invokana 100 MG tablet Generic drug: canagliflozin Take 100 mg by mouth daily before breakfast levothyroxine 50 MCG tablet Commonly known as: Synthroid Take 50 mcg by mouth daily before breakfast metOLazone 2.5 MG tablet Commonly known as: Zaroxolyn Take 2.5 mg by mouth Take 1 tab twice a week on Friday and multivitamin with iron tablet Take 1 Tab by mouth once daily. potassium chloride ER 20 MEQ tablet Commonly known as: Klor-Con Quantity Dispensed: 120 tablet TAKE 1 TABLET BY MOUTH FOUR TIMES A DAY Theresa Camargo MD ProAir HFA 108 (90 Base) MCG/ACT inhaler Generic drug: albuterol HFA Take 2 Puffs by mouth every 4 hours as needed. Prolensa 0.07 % opthalmic solution Generic drug: bromfenac Sodium PUT 1 DROP INTO RIGHT EYE TWICE A DAY rosuvastatin 10 MG tablet Commonly known as: Crestor Quantity Dispensed: 90 tablet Take 1 tablet by mouth at bedtime Theresa Camargo MD SITagliptin 100 MG tablet Commonly known as: Januvia Take 100 mg by mouth once daily spironolactone 25 MG tablet Commonly known as: Aldactone Take 25 mg by mouth once daily verapamil SR 24hr 120 MG capsule Commonly known as: Verelan Take 120 mg by mouth at bedtime vitamin D3 25 MCG (1000 UNITS) tablet Commonly known as: Cholecalciferol Take 1,000 Units by mouth once daily STOP taking these medications aspirin 81 MG tablet Commonly known as: ASPIRIN clopidogrel 75 MG tablet Commonly known as: plaVIX Discharge Procedure Orders Follow up with provider Order Specific Question Answer Comments Follow Up Instructions: Follow up in office Why you were hospitalized Order Specific Question Answer Comments Your discharge diagnosis is: Hip pain [444867] Your discharge diagnosis is: Hematoma [151884] Follow up with Primary Care Provider (PCP) Our records show your Primary Care Provider (PCP) is Theresa Camargo MD. Order Specific Question Answer Comments Follow Up Instructions: in 1 week Activity as tolerated Rest today, and increase your activity level tomorrow as tolerated. Diabetic diet Follow up with provider Order Specific Question Answer Comments Follow Up Instructions: in 2 weeks Special instructions Please stop aspirin, Plavix for 2 weeks. Resume when okay with primary care or Dr. Carrera Contact Information for Follow-Up Providers Julio Galdamez MD Specialty: Orthopedic Surgery [address] [place] [id number] Follow up in office Follow Up Instructions: Follow up in office Follow up with Primary Care Provider (PCP) in 1 week Our records show your Primary Care Provider (PCP) is Theresa Camargo MD. Follow Up Instructions: in 1 week Theresa Camargo MD Specialty: Internal Medicine Relationship: PCP - General PCP - Attributed-[facility] [id number] [facility] [facility] [address] in 1 week Our records show your Primary Care Provider (PCP) is Theresa Camargo MD. Follow Up Instructions: in 1 week Lavelle Carrera IV, MD Specialty: Orthopedic Surgery, Radiology [address] [facility] [address] [place] [id number] in 2 weeks Follow Up Instructions: in 2 weeks No Smoking, alcohol, drugs Weight loss measures as directed Instructed to seek immediate medical attention if any symptoms worsen or has new symptoms. All the discharge instructions explained in detail to the patient and family. All questions answered. Discharge time: Total time spent was 30 minutes to review medications and place discharge orders/instructions and explain the discharge plan D/c summary note was faxed to PCP via the [employer] system CC Theresa Camargo MD documented in this encounter Discharge Instructions * Discharge Instructions* Lilli Narayan RN - 09/20/2020 6:32 PM CDT Images from the original note were not included. Patient Education Hip Pain WHAT YOU NEED TO KNOW: Hip pain can be caused by a number of conditions, such as bursitis, arthritis, or muscle or tendon strain. You may have swelling in the fluid-filled sacs that protect your muscles and tendons. Hip pain can also be caused by a lower back problem. Hip pain may be caused by trauma, playing sports, or running. Pain may start in your hip and go to your thigh, buttock, or groin. DISCHARGE INSTRUCTIONS: Medicines: ?? NSAIDs , such as ibuprofen, help decrease swelling, pain, and fever. This medicine is available with or without a doctor's order. NSAIDs can cause stomach bleeding or kidney problems in certain people. If you take blood thinner medicine, always ask your healthcare provider if NSAIDs are safe foryou. Always read the medicine label and follow directions. ?? Take your medicine as directed. Contact your healthcare provider if you think your medicine is not helping or if you have side effects. Tell him of her if you are allergic to any medicine. Keep a list of the medicines, vitamins, and herbs you take. Include the amounts, and when and why you take them. Bring the list or the pill bottles to follow-up visits. Carry your medicine list with you in case of an emergency. Return to the emergency department if: ?? Your pain gets worse. ?? You have numbness in your leg or toes. ?? You cannot put any weight on or move your hip. Contact your healthcare provider if: ?? You have a fever. ?? Your pain does not decrease, even after treatment. ?? You have questions or concerns about your condition or care. Follow up with your healthcare provider as directed: You may need physical therapy, an injection, or more testing. You may need to see an emergency room specialist. Write down your questions so you remember to ask them during your visits. Manage your hip pain: ?? Rest your injured hip so that it can heal. You may need to avoid putting any weight on your hip for at least 48 hours. Return to normal activities as directed. ?? Ice the injury for 20 minutes every 4 hours, or as directed. Use an ice pack, or put crushed icein a plastic bag. Cover it with a towel to protect your skin. Ice helps prevent tissue damage and decreases swelling and pain. ?? Elevate your injured hip above the level of your heart as often as you can. This will help decrease swelling and pain. If possible, prop your hip and leg on pillows or blankets to keep the area elevated comfortably. ?? Maintain a healthy weight. Extra body weight can cause pressure and pain in your hip, knee, and ankle joints. Ask your healthcare provider how much you should weigh. Ask him or her to help you create a weight loss plan if you are overweight. ?? Use assistive devices as directed. You may need to use a cane or crutches. Assistive devices help decrease pain and pressure on your hip when you walk. Ask your healthcare provider for more information about assistive devices and how to use them correctly. ?? Copyright [employer] 2020 Information is for End User's use only and may not be sold, redistributed or otherwise used for commercial purposes. All illustrations and images included in CareNotes?? are the copyrighted property of [employer]. or [employer] The above information is an educational diagnostician only. It is not intended as medical advice for individual conditions or treatments. Talk to your doctor, nurse or pharmacist before following any medical regimen to see if it is safe and effective for you. Patient Education Hematoma WHAT YOU NEED TO KNOW: A hematoma is a collection of blood. A bruise is a type of hematoma. A hematoma may form in a muscle or in the tissues just under the skin. A hematoma that forms under the skin will feel like a bump or hard mass. Hematomas can happen anywhere in your body, including in your brain. Your body may break down and absorb a mild hematoma on its own. A more serious hematoma may need treatment. DISCHARGE INSTRUCTIONS: Medicines: You may need any of the following: ?? Prescription pain medicine may be given. Ask how to take this medicine safely. ?? NSAIDs , such as ibuprofen, help decrease swelling, pain, and fever. This medicine is available with or without a doctor's order. NSAIDs can cause stomach bleeding or kidney problems in certain people. If you take blood thinner medicine, always ask your healthcare provider if NSAIDs are safe foryou. Always read the medicine label and follow directions. ?? Antibiotics prevent or treat a bacterial infection. ?? Take your medicine as directed. Contact your healthcare provider if you think your medicine is not helping or if you have side effects. Tell him of her if you are allergic to any medicine. Keep a list of the medicines, vitamins, and herbs you take. Include the amounts, and when and why you take them. Bring the list or the pill bottles to follow-up visits. Carry your medicine list with you in case of an emergency. Return to the emergency department if: ?? You have new or worsening pain, or pain that does not get better with medicine. ?? You have a fever. ?? You have trouble moving the body part that has the hematoma. Contact your healthcare provider if: ?? You have questions or concerns about your condition or care. Follow up with your healthcare provider as directed: You may need to have surgery if your hematoma is severe. You may also need other tests to make sure there is no other damage that needs to be treated. Write down your questions so you remember to ask them during your visits. Self-care: ?? Rest the area. Rest will help your body heal and will also help prevent more damage. ?? Apply ice as directed. Ice helps reduce swelling. Ice may also help prevent tissue damage. Use an ice pack, or put crushed ice in a bag. Cover it with a towel. Place it on your hematoma for 20 minutes every hour, or as directed. Ask how many times each day to apply ice, and for how many days. ?? Compress the injury if possible. Lightly wrap the injury with an elastic or soft bandage. This may help control swelling. Ask your healthcare provider how to wrap your injury properly. ?? Elevate the area as directed. If possible, raise the area above the level of your heart as oftenas you can. This will help decrease swelling. ?? Keep the hematoma covered with a bandage. This will help protect the area while it heals. ?? Copyright [employer] 2020 Information is for End User's use only and may not be sold, redistributed or otherwise used for commercial purposes. All illustrations and images included in CareNotes?? are the copyrighted property of [employer], [employer]. or [employer] The above information is an educational diagnostician only. It is not intended as medical advice for individual conditions or treatments. Talk to your doctor, nurse or pharmacist before following any medical regimen to see if it is safe and effective for you. documented in this encounter Medications at Time [...] POSTMENOPAUSAL WOMEN 90 tablet 3 06/21/2020 06/18/2021 BD PEN NEEDLE MADDI U/F 32G X 4 MM MISC USE [...] FOUR TIMES A DAY 120 tablet 3 09/04/2020 12/01/2020 rosuvastatin (CRESTOR) 10 MG tablet Take 1 tablet by mouth at bedtime 90 tablet 2 05/03/2020 08/10/2021 verapamil SR 24hr (VERELAN) 120 MG capsule Take 120 mg by mouth at bedtime 11/10/2019 05/21/2022 Wheat Dextrin (BENEFIBER PO) Take 1 packet by mouth once daily 05/21/2022 documented as of this encounter Progress Notes * Brissa Shelley RN - 09/20/2020 7:45 PM CDT Patient discharged home to self, After visit summary reviewed with and handed over to patient.She and her daughter verbalized understanding of discharge plan.Iv access removed, she still had her olivas catheter on. * Lynsey Gavin RD/AJAY - 09/20/2020 2:49 PM CDT Nutrition Note Pt screened for length of stay. Height: 5' 5 (165.1 cm) Admission weight: Weight: 170 lb (77.1 kg) (09/14/20 1448) Most recent weight: Weight: 170 lb (77.1 kg) (09/14/20 1448) Body mass index is 28.29 kg/m??. Filed Wts: 09/14/201447 Weight: 170 lb (77.1 kg) PO Intake Average (last 72 hours): % Meal Taken Av % Min: 100 % Max: 100 % Pt on Orders Placed This Encounter Procedures ??? DIET REGULAR Standing Status: Standing Number of Occurrences: 1 Order Specific Question: Tray Type: Answer: SELF SELECT . Current diet order appropriate. Pt with good appetite and eating well (greater than 75% per flowsheet). No GI symptoms or eating difficulties noted. No significant weight changes. Will follow per nutrition guidelines. No nutrition issues identified. * Livia Randle RN - 09/20/2020 2:46 PM CDT Case Management Progress Note Anticipated level of care at discharge: Home, Home Health Care, [facility] - Skilled Facility, Acute Rehab Facility Discharge Plan: Home with C Pt has discharge orders. Pt daughter will provide transfer home at time of discharge. No further discharge needs. Basic Needs Assessment (BNA) Score: 10 Anticipated Discharge Date: Anticipated Discharge Date: 09/20/20 Transportation at Discharge: Family Transportation to MD:Family Equipment at Home: Equipment At Home: Walker-2 Wheeled Additional DME needed: Hunger Screening: Within the past 12 months the food we bought just didn't last and we didn't have money to get more.: Never true Within the past 12 months we worried whether our food would run out before we got money to buy more: Never true Food Bank Resources Provided: Not offered to the patient Medication affordability concerns: no Auth Number (if required) NH: DME: Medications: Transportation: Name: Livia Randle RN Phone: [phone] * Brissa Shelley RN - 09/20/2020 11:57 AM CDT Patient is alert and oriented, she needed assistance for transfer into the chair, she is on olivas care,other assessment findings documented per chart.She remains falls free, will continue to monitor and provide needed care. Problem: Hemodynamic Status/Cardiac Output Goal: Patient has stable vital signs and fluid balance Flowsheets (Taken 09/20/2020929 by Sy Swift) Temp: 97.6 ??F (36.4 ??C) Pulse: 77 Resp: 18 BP: 125/49 SpO2: 92 % Problem: Fall Risk Goal: Fall risk and fall related injury risk are minimized (interventions related to the fall risk can be found in the flowsheet documentation) Outcome: Progressing * Bertha Naidu OT - 09/20/2020 9:44 AM CDT Occupational Therapy Treatment Summary Chart reviewed for diagnosis and medical systems review. Nursing consented for OT. Explained purpose of OT and patient consented to participate in therapy. PPE worn by staff: gloves;mask - surgical Precautions: protection of L gluteal area, fall, skin, per daughter please elevate her legs to keep her leg swelling down SUBJECTIVE: I sleep in a recliner chair at home, so getting out of a bed is hard for me Psychosocial: Patient Behaviors: Calm;Cooperative Pt's goal for therapy: I want to walk OBJECTIVE: Pain Assessment: Pain Rating Score #: 0 (at rest) Cognition: Orientation Level: Oriented X4 Level of Consciousness-Adult: Alert Cognition: Follows Commands-Consistent;Attention/concentration-normal for age;Processing-Appropriate;Judgement-appropriate;Safety awareness-appropriate Functional Mobility: Bed Mobility: Supine to Sit: Minimal Assistance (with HOB eleveted and use of handrail) - pt doesn't sleep in abed, but rather a recliner chair with elevating legrests Transfers: Sit to Stand: Stand By Assist (pt requires extra time, but able to do without assist) Stand to Sit: Stand By Assist Bed to Chair: Stand By Assist Type of Transfer: Stand Pivot Transfer (with wh walker) Balance: Good with ADL's at EOB ADL Tasks: Oral Facial Hygiene: Modified [place] (comb hair) Lower Body Dressing: Minimal Assistance (don socks with AE) - needed just a few cues and prompts for correct technique Toileting: Total Assistance (has olivas) ASSESSMENT: The pt is progressing in therapy. She is performing LB dressing with min assist at mostand transfers with the wh w walker with SBA and extra time. She thought her L hip would be painful upon getting up, but had no difficulty with it, except for saying, I'm keeping my knee straight, soit doesn't buckle. The pt has a lot of support at home. Rec Home w/ family/friend support and HH Call light and phone in reach with pt sitting up in chair and RN in room. RN will elevated legs on a chair when finished giving meds All lines, monitors, IV's, equipment in place and intact pre and post visit. RN, notified of patient's performance/location end of session. Educated patient/family in LB dressing, use of sock-aid, transfer technique, Please refer to the Filed Flowsheet OT Treatment for further details. Refer to care plan for goals. RECOMMENDATIONS/PLAN: Home with family and HH If this is the last Occupational Therapy visit, this serves as the discharge summary. Bertha Naidu OTR/L ext.[phone] * Nelly Dos Santos RN - 09/20/2020 3:35 AM CDT Loc is alert and oriented x 4 and up with assist. Chronic olivas in place. Denies pain. No complaints of nausea, SOB, or chest pain. Vital signs stable. Will continue to monitor. * Nelly Dos Santos RN - 09/20/2020 3:01 AM CDT Problem: Fall Risk Goal: Fall risk and fall related injury risk are minimized (interventions related to the fall risk can be found in the flowsheet documentation) Outcome: Progressing Jony fall risk and fall related injury are minimized. Problem: Tissue Injury Due to External Forces of Pressure, Friction, and Shear Goal: Protect Skin from External Forces Outcome: Progressing Loc refuses Q2 hrs turns to protect skin from external forces. Problem: Skin Integrity Goal: Skin integrity is maintained or improved Outcome: Bela Borges skin integrity will be maintained or improve during this admission. * Kae Meyer PT - 09/19/2020 5:46 PM CDT Physical Therapy Treatment Summary Chart review completed. Nursing consented for PT. Explained purpose of PT and patient consented to participate in therapy. PPE worn by staff: gloves;mask - surgical Admitted d/t inability to walk. 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 Has her children providing assistance for cooking meals, laundry and transportation, has hired cleaning person. SUBJECTIVE: Reports 2-3 days prior to having L hip hurt she fell at home but no trauma. Pt recalledcrossing her left leg on top of her R knee to apply sock when she suddenly felt L hip pain and progressed that limited her walking. Patient's Goal for the Day: walk Pain Assessment: Pain Rating Score #: 0 Pain Location : Hip;Leg Pain Orientation: Left OBJECTIVE: Orientation Level: Oriented X4 Precautions: Fall Bed Mobility: Supine to Sit: (up on EOB) Transfers: Sit to Stand: Minimal Assistance Stand to Sit: Minimal Assistance Toilet Transfers: Minimal Assistance (BSC) Mobility: Distance Ambulated: 70 FEET Ambulation: Assistive Device: Gait Belt;Walker-2 Wheeled Ambulation: Level of Assistance: Minimum Assistance ASSESSMENT: Pt presents with good sitting balance, was sitting on EOB upon PT arrival without c/o pain sitting and initiating WB standing. Pt started with ROM to determine walking and was able to progress some distance. L LE did not demonstrate any issues except 1 R knee buckling wherein pt needed assist to correct her balance. Pt ended session needing to use BSC for BM and was set up wherein she can have access to call Nursing staff. Overall, pt appeared to be improving tolerating standing WB activities despite not medicated for pain today. May benefit with daily therapy to further improve her endurance and balance. May consider Rehab placement if pt still appears to require assist in standing activities. Call light and phone in reach All lines, monitors, IV's, equipment in place and intact pre and post visit. RN, notified of patient's performance/location end of session. Pt educated in PT plan of care, fall precautions, and benefits of OOB activity Please refer to the Filed Flowsheet for further details. Refer to Plan of Care for PT goals. RECOMMENDATIONS/PLAN: Continue challenging balance and ambulation with baseline 2ww as tolerated. PT Discharge Recommendations: Detention Facility If this is the last Physical Therapy visit, this note serves as the discharge summary. Kae MeyerPT, CCI [phone] * Allen Navarro MD - 09/19/2020 1:13 PM CDT Admit Date: 09/14/2020 2:51 PM Hospital Day: 5 Reason for visit/follow up: 79 year old with DM, A fib, familial demyelinating disease admitted with pain with ambulation X 2-3 days. No falls New Symptoms Patient has no new symptoms. Still complains of pain in the left lower extremity, awaiting PT, OT evaluation. Will need outpatient follow-up with MRI with Ortho Data Vitals: 09/18/20 1512 09/18/20 2048 09/19/20 0428 09/19/20 0832 BP: 126/52 123/56 117/49 128/61 Pulse: 77 84 65 74 Resp: 18 18 18 17 Temp: 97.9 ??F (36.6 ??C) 98.1 ??F (36.7 ??C) 97.7 ??F (36.5 ??C) 98 ??F (36.7 ??C) SpO2: 95% 91% 92% 91% Weight: Height: Intake/Output Summary (Last 24 hours) at 09/19/2020 1313 Last data filed at 09/19/2020 0853 Gross per 24 hour Intake 360 ml Output 2250 ml Net -1890 ml My review of labs, imaging, notes and other tests is significant for hypokalemia, hyponatremia. Stable Hb Recent Labs Component Name 09/19/20 04109/18/20 0405 09/17/20 041 SODIUM 135* 134* 134* POTASSIUM 3.5 3.5 3.8 CHLORIDE 103 101 101 CO2 22* 23 23 BUN 25* 28* 29* CREATININE 0.80 0.84 0.87 GLUCOSE 171* 160* 164* CALCIUM 9.8 10.2 10.0 Recent Labs Component Name 09/19/2041809/18/20 0405 09/17/20 0418 WBC 10.3 10.8* 11.7* HGB 12.1 12.2 12.5 HCT 39.2 38.6 40.0 PLTCOUNT [phone] MEDICATIONS FOR CURRENT ENCOUNTER: SCHEDULED MEDICATIONS: 0.9% NaCl injection 3 mL, Intracatheter, q8h amitriptyline (Elavil) tablet 50 mg, Oral, AT BEDTIME atorvastatin (Lipitor) tablet 40 mg, Oral, AT BEDTIME bromfenac Sodium (Prolensa) 0.07 % opthalmic solution 1 drop, Right Eye, QDAY dorzolamide (Trusopt) 2 % ophthalmic solution 1 drop, Each Eye, BID flecainide (Tambocor) tablet 50 mg, Oral, BID furosemide (Lasix) tablet 40 mg, Oral, QDAY heparin injection 5,000 Units, Subcutaneous, q8h insulin aspart (NovoLOG) pen 0-6 Units, Subcutaneous, TID WC insulin glargine (Lantus) pen 8 Units, Subcutaneous, QDAY levothyroxine (Synthroid) tablet 50 mcg, Oral, QDAY AT 0600 metOLazone (Zaroxolyn) tablet 2.5 mg, Oral, Once per day on Fri pantoprazole EC (Protonix) tablet 40 mg, Oral, QDAY potassium chloride (Klor-Con) packet 20 mEq, Oral, QDAY WITH BREAKFAST spironolactone (Aldactone) tablet 25 mg, Oral, QDAY ?? verapamil CR (Isoptin-SR) tablet 120 mg, Oral, AT BEDTIME ?? CONTINUOUS MEDICATIONS: Exam General appearance: alert, cooperative, no distress HEENT: moist mucosa Heart: regular rhythm, normal S1 and S2 Lungs: breath sounds symmetric; no rales or wheezes Abdomen: soft , non-tender, with normal bowel sounds Extremities: no cyanosis or edema Assessment and Plan left hip pain / left calf pain Has not fallen but she does think she stretched her hip too much when she was trying to put on socks CT lumbar spine with multilevel DJD MRI - L gluteus medius muscle with acute or subacute IM hematoma vs neoplasm, rpt MRI with contrastin 1-2 months PT/OT to see Per Dr Carrera, plan for OP F/U with ortho oncologist for F/U MRI hypokalemia Leukocytosis Diabetes mellitus type 2 On lantus amaryl and invokana on hold SSI while in hospita I have reviewed the last 24 hours of blood glucose measurements and they are in reasonable range Regular diet per patient request CKD 2-3 Stable creatinine K replaced Hyperlipidemia On statin Mild hyponatremia noted Spastic paraplegia, 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 DVT prophylaxis: Subcutaneous heparin Activity level: Comes from home, lives with , used to use a walker for ambulation prior to admission until the current problem started 2-3 days ago Await PT/OT D/W family at bedside and over videocall. D/W Dr Carrera * Bethanie Mccall, OT - 09/19/2020 10:48 AM CDT Occupational Therapy Treatment Summary Chart reviewed for diagnosis and medical systems review. Nursing consented for OT. Patient consented to participate in therapy. PPE worn by staff: eye protection;gloves;mask - surgical PPE worn by patient: mask - surgical Pt was admitted with: Fall with L gluteal hematoma; Hx of: Asthma (2012), Atrial fibrillation (2015), Breast cancer (08/25/2017), Broken ankle (12/19/2003), CAD (coronary artery disease), Chronic idiopathic constipation (12/12/2017), Chronically dry eyes (06/26/2018), DM (diabetes mellitus), Duodenal ulcer, unspecified as acute or chronic, without hemorrhage, perforation, or obstruction (1977), Familial spastic paraplegia (1979), Fracture of sacrum (05/1999), Glaucoma (06/2003), Heart murmur (01/27/2004, 03/13/2004), History of TIA (transient ischemic attack) (10/22/2017), 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), HTN (hypertension), Hyperparathyroidism (06/26/2018), Hypothyroid, IBS (irritable bowel syndrome), Iron deficiency anemia due to chronic blood loss (12/12/2017), Left ventricular hypertrophy (06/26/2018), Lymphatic edema, 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 PRECAUTIONS: Protection of L gluteal area; Fall; Skin protection SUBJECTIVE: Pt stated that she's crippled, and can't do much. Reported that it's hard to move herlegs and that she usually sleeps in a lift chair at home. She was instructed in the risks of skin breakdown from prolonged sitting/sleeping in one spot. Reported that she was pleased to be able to use LH equipment for her self care today and was glad to be up in the chair. If I'm going to be seen by that male today (from PT) I want to have a gown around my backside! Psychosocial: Patient Behaviors: Cooperative Pt's goal for therapy: Pt wants to get better with walking and taking care of herself. OBJECTIVE: Pain Assessment: Pain Rating Score #: 0 Pain Location : Hip Pain Orientation: Left Cognition: Orientation Level: Oriented X4 Level of Consciousness-Adult: Alert Cognition: Follows Commands-Consistent;Attention/concentration-normal for age;Processing-Appropriate;Judgement-decreased;Safety awareness-decreased Functional Mobility: Bed Mobility: Supine to Sit: Moderate Assistance;Requires Verbal Cues for Safety;Requires Physical Cues for Safety;Requires Verbal Cues for Technique;Requires Physical Cues for Technique Sit to Supine: Activity Does Not Occur Transfers: Sit to Stand: Maximum Assistance;Requires Verbal Cues for Safety;Requires Physical Cues for Safety;Requires Verbal Cues for Technique;Requires Physical Cues for Technique Stand to Sit: Maximum Assistance;Requires Verbal Cues for Safety;Requires Physical Cues for Safety;Requires Verbal Cues for Technique;Requires Physical Cues for Technique Toilet Transfers: Maximum Assistance;Requires Verbal Cues for Safety;Requires Physical Cues for Safety;Requires Verbal Cues for Technique;Requires Physical Cues for Technique (BSC) ADL Tasks: Feeding: Complete [place] Oral Facial Hygiene: Set-up Bathing: Maximal Assistance Upper Body Dressing: Minimal Assistance Lower Body Dressing: Maximal Assistance (using AE) Toileting: Total Assistance Vital Signs/Activity Tolerance/O2 Requirements: SpO2: 91 % Pulse: 74 BP: 128/61 INTERVENTION/ASSESSMENT: Pt was alert and Ox4. She has a Olivas catheter and was unaware that she had soiled her bed with stool. She was instructed in compensatory self care techniques and was instructed in, practiced with, and was issued a sock aid and development technician. Needed assist and cues, as well as for transfers and toileting after having soiled herself. She presented with decreased safety, needing cues for proper hand placement and safe techniques for transferring. She is making gradual progress and will definitely benefit from further therapies post-Acute, to increase safety and function. Patient with call light and phone within reach. Chair alarm activated upon OT departure. All lines, monitors, IV's, equipment in place and intact pre and post visit. Nurse, Malou, notified of patient's performance/position at end of session. Please refer to the Filed Flowsheet OT Treatment for further details. Refer to care plan for goals. RECOMMENDATIONS/PLAN: SNF If this is the last Occupational Therapy visit, this serves as the discharge summary. Kyleigh OT x [phone] * Fidel Jenkins RN - 09/19/2020 6:36 AM CDT Patient had no complaints last night. On home CPAP and resting well. Patient refused q2 turn. VSS. * Fidel Jenkins RN - 09/18/2020 11:21 PM CDT Problem: Fall Risk Goal: Fall risk and fall related injury risk are minimized (interventions related to the fall risk can be found in the flowsheet documentation) Outcome: Progressing Note: Ms. Leon will have lower fall risk. Continue to monitor. Problem: Tissue Injury Due to External Forces of Pressure, Friction, and Shear Goal: Protect Skin from External Forces Outcome: Progressing Note: Wound care for Ms. Leon and skin care to continue. Problem: Skin Integrity Goal: Skin integrity is maintained or improved Outcome: Progressing Note: Ms. Leon's skin integrity will be maintained. * Livia Randle RN - 09/18/2020 3:04 PM CDT Case Management Progress Note Anticipated level of care at discharge: Home, Home Health Care, [facility] - Skilled Facility, Acute Rehab Facility Discharge Plan: TBD Pt from home. Pt may need HHC or rehab post discharge. Treatment team to recommend. CM will continue to follow. Basic Needs Assessment (BNA) Score: 10 Anticipated Discharge Date: Anticipated Discharge Date: 09/18/20 Transportation at Discharge: Family Transportation to MD:Family Equipment at Home: Equipment At Home: Walker-2 Wheeled Additional DME needed: Hunger Screening: Within the past 12 months the food we bought just didn't last and we didn't have money to get more.: Never true Within the past 12 months we worried whether our food would run out before we got money to buy more: Never true Food Bank Resources Provided: Not offered to the patient Medication affordability concerns: no Auth Number (if required) NH: DME: Medications: Transportation: Name: Livia Randle RN Phone: [phone] * Teri Espana MD - 09/18/2020 2:57 PM CDT Admit Date: 09/14/2020 2:51 PM Hospital Day: 4 Reason for visit/follow up: 79 year old with DM, A fib, familial demyelinating disease admitted with pain with ambulation X 2-3 days. No falls New Symptoms Patient has no new symptoms. Family at bedside, daughter over phone via [employer] - D/W both regarding MRI results, hematoma vs neoplasm, plan to stop ASA, plavix, PT, OT when OK with ortho and recommendation for rpt MRI with contrast in 1-2 months No pain when pt lying in bed, per family She noted some urine leak from around catheter today - replaced 2 weeks ago, usually replaced every3 weeks. Data Vitals: 09/17/20 0802 09/17/20 2120 09/18/20 0407 09/18/20 0834 BP: 129/69 105/52 127/57 123/58 Pulse: 74 82 75 78 Resp: 18 18 18 18 Temp: 98.4 ??F (36.9 ??C) 98.1 ??F (36.7 ??C) 98.3 ??F (36.8 ??C) 97.8 ??F (36.6 ??C) SpO2: 99% 94% 95% Weight: Height: Intake/Output Summary (Last 24 hours) at 09/18/2020 1457 Last data filed at 09/18/2020 1248 Gross per 24 hour Intake 360 ml Output 2900 ml Net -2540 ml My review of labs, imaging, notes and other tests is significant for hypokalemia, hyponatremia. Stable Hb Recent Labs Component Name 09/18/20 0405 09/17/20 0418 09/16/20416 SODIUM 134* 134* 136 POTASSIUM 3.5 3.8 3.1* CHLORIDE 101 101 103 CO2 23 23 26 BUN 28* 29* 27* CREATININE 0.84 0.87 0.80 GLUCOSE 160* 164* 138* CALCIUM 10.2 10.0 9.8 Recent Labs Component Name 09/18/20 0405 09/17/20 0418 09/16/20416 WBC 10.8* 11.7* 12.5* HGB 12.2 12.5 12.5 HCT 38.6 40.0 39.9 PLTCOUNT 301 296 319 MEDICATIONS FOR CURRENT ENCOUNTER: SCHEDULED MEDICATIONS: 0.9% NaCl injection 3 mL, Intracatheter, q8h amitriptyline (Elavil) tablet 50 mg, Oral, AT BEDTIME atorvastatin (Lipitor) tablet 40 mg, Oral, AT BEDTIME bromfenac Sodium (Prolensa) 0.07 % opthalmic solution 1 drop, Right Eye, QDAY dorzolamide (Trusopt) 2 % ophthalmic solution 1 drop, Each Eye, BID flecainide (Tambocor) tablet 50 mg, Oral, BID furosemide (Lasix) tablet 40 mg, Oral, QDAY heparin injection 5,000 Units, Subcutaneous, q8h insulin aspart (NovoLOG) pen 0-6 Units, Subcutaneous, TID WC insulin glargine (Lantus) pen 8 Units, Subcutaneous, QDAY levothyroxine (Synthroid) tablet 50 mcg, Oral, QDAY AT 0600 pantoprazole EC (Protonix) tablet 40 mg, Oral, QDAY potassium chloride (Klor-Con) packet 20 mEq, Oral, QDAY WITH BREAKFAST spironolactone (Aldactone) tablet 25 mg, Oral, QDAY verapamil CR (Isoptin-SR) tablet 120 mg, Oral, AT BEDTIME ?? [START ON 09/19/2020] metOLazone (Zaroxolyn) tablet 2.5 mg, Oral, Once per day on Fri ?? CONTINUOUS MEDICATIONS: Exam General appearance: alert, cooperative, no distress HEENT: moist mucosa Heart: regular rhythm, normal S1 and S2 Lungs: breath sounds symmetric; no rales or wheezes Abdomen: soft , non-tender, with normal bowel sounds Extremities: no cyanosis or edema Assessment and Plan left hip pain / left calf pain Has not fallen but she does think she stretched her hip too much when she was trying to put on socks CT lumbar spine with multilevel DJD MRI - L gluteus medius muscle with acute or subacute IM hematoma vs neoplasm, rpt MRI with contrastin 1-2 months PT/OT to see Per Dr Carrera, plan for OP F/U with ortho oncologist for F/U MRI hypokalemia Leukocytosis Diabetes mellitus type 2 On lantus amaryl and invokana on hold SSI while in hospita I have reviewed the last 24 hours of blood glucose measurements and they are in reasonable range Regular diet per patient request CKD 2-3 Stable creatinine K replaced Hyperlipidemia On statin Mild hyponatremia noted Spastic paraplegia, 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 DVT prophylaxis: Subcutaneous heparin Activity level: Comes from home, lives with , used to use a walker for ambulation prior to admission until the current problem started 2-3 days ago Await PT/OT D/W family at bedside and over videocall. D/W Dr Carrera * Lavelle Carrera IV, MD - 09/18/2020 12:07 PM CDT Results noted Will need outpatient evaluation with orthopedic oncologist * Kourtney Cazares LPN - 09/18/2020 6:19 AM CDT Shift Summary: Pt A&O x 4. Pt is hard of hearing. Pt denied having any pain on this shift. Will continue to monitor. * Kourtney Cazares LPN - 09/17/2020 11:25 PM CDT Problem: Fall Risk Goal: Fall risk and fall related injury risk are minimized (interventions related to the fall risk can be found in the flowsheet documentation) Outcome: Progressing Problem: Balance Goal: STG - Maintains dynamic sitting balance without upper extremity support. Outcome: Progressing Problem: Mobility Goal: STG - Patient will ambulate Description: 25 ft mod assist, 2 wheeled walker Outcome: Progressing Problem: Transfers Goal: STG - Patient to transfer to and from sit to supine Description: minx1 Outcome: Progressing Problem: Tissue Injury Due to External Forces of Pressure, Friction, and Shear Goal: Protect Skin from External Forces Outcome: Progressing Problem: Skin Integrity Goal: Skin integrity is maintained or improved Outcome: Progressing * Jaz Dumont - 09/17/2020 3:18 PM CDT Problem: Fall Risk Goal: Fall risk and fall related injury risk are minimized (interventions related to the fall risk can be found in the flowsheet documentation) 09/17/2020 1518 by Jaz Dumont Outcome: Progressing 09/17/2020 1517 by Jaz Dumont Outcome: Progressing Problem: Tissue Injury Due to External Forces of Pressure, Friction, and Shear Goal: Protect Skin from External Forces 09/17/2020 1518 by Jaz Dumont Outcome: Progressing 09/17/2020 1517 by Jaz Dumont Outcome: Progressing Problem: Skin Integrity Goal: Skin integrity is maintained or improved 09/17/2020 1518 by Jaz Dumont Outcome: Progressing 09/17/2020 1517 by Jaz Dumont Outcome: Progressing * Jaz Dumont - 09/17/2020 3:17 PM CDT Problem: Fall Risk Goal: Fall risk and fall related injury risk are minimized (interventions related to the fall risk can be found in the flowsheet documentation) Outcome: Progressing Problem: Tissue Injury Due to External Forces of Pressure, Friction, and Shear Goal: Protect Skin from External Forces Outcome: Progressing Problem: Skin Integrity Goal: Skin integrity is maintained or improved Outcome: Progressing * Elieser Mccartney MD - 09/17/2020 12:05 PM CDT Admit Date: 09/14/2020 2:51 PM Hospital Day: 3 Reason for visit/follow up: 79 year old with DM, A fib, familial demyelinating disease admitted with pain with ambulation X 2-3 days. No falls New Symptoms Patient has no new symptoms. Still waiting on MRI Data Vitals: 09/16/20 0819 09/16/208 09/17/20 0427 09/17/20 0802 BP: 123/60 126/59 129/55 129/69 Pulse: 72 84 70 74 Resp: 18 18 18 18 Temp: 97.8 ??F (36.6 ??C) 98.3 ??F (36.8 ??C) 98.2 ??F (36.8 ??C) 98.4 ??F (36.9 ??C) SpO2: 94% 91% 90% 99% Weight: Height: Intake/Output Summary (Last 24 hours) at 09/17/2020 1205 Last data filed at 09/17/2020 1116 Gross per 24 hour Intake -- Output 3800 ml Net -3800 ml My review of labs, imaging, notes and other tests is significant for hypokalemia, hyponatremia, anemia Recent Labs Component Name 09/17/20 0418 09/16/20 0417 09/15/20 0337 SODIUM 134* 136 134* POTASSIUM 3.8 3.1* 3.1* CHLORIDE 101 103 100 CO2 23 26 25 BUN 29* 27* 36* CREATININE 0.87 0.80 0.91 GLUCOSE 164* 138* 111* CALCIUM 10.0 9.8 9.6 Recent Labs Component Name 09/17/20 0418 09/16/20 0417 09/15/20 0337 WBC 11.7* 12.5* 12.8* HGB 12.5 12.5 11.9* HCT 40.0 39.9 37.8 PLTCOUNT 296 319 309 MEDICATIONS FOR CURRENT ENCOUNTER: SCHEDULED MEDICATIONS: 0.9% NaCl injection 3 mL, Intracatheter, q8h amitriptyline (Elavil) tablet 50 mg, Oral, AT BEDTIME aspirin chew tablet 81 mg, Oral, QDAY atorvastatin (Lipitor) tablet 40 mg, Oral, AT BEDTIME bromfenac Sodium (Prolensa) 0.07 % opthalmic solution 1 drop, Right Eye, QDAY clopidogrel (plaVIX) tablet 75 mg, Oral, AT BEDTIME dorzolamide (Trusopt) 2 % ophthalmic solution 1 drop, Each Eye, BID flecainide (Tambocor) tablet 50 mg, Oral, BID furosemide (Lasix) tablet 40 mg, Oral, QDAY heparin injection 5,000 Units, Subcutaneous, q8h insulin aspart (NovoLOG) pen 0-6 Units, Subcutaneous, TID WC insulin glargine (Lantus) pen 8 Units, Subcutaneous, QDAY levothyroxine (Synthroid) tablet 50 mcg, Oral, QDAY AT 0600 pantoprazole EC (Protonix) tablet 40 mg, Oral, QDAY potassium chloride (Klor-Con) packet 20 mEq, Oral, QDAY WITH BREAKFAST spironolactone (Aldactone) tablet 25 mg, Oral, QDAY verapamil CR (Isoptin-SR) tablet 120 mg, Oral, AT BEDTIME [COMPLETED] potassium chloride ER (Klor-Con M) tablet 40 mEq, Oral, Once ?? [START ON 09/19/2020] metOLazone (Zaroxolyn) tablet 2.5 mg, Oral, Once per day on Fri ?? CONTINUOUS MEDICATIONS: Exam General appearance: alert, cooperative, Heart: regular rhythm, normal S1 and S2, without murmurs, Lungs: breath sounds symmetric; no rales or wheezes Abdomen: soft , non-tender, with normal bowel sounds Extremities: no cyanosis or edema Assessment and Plan left hip pain / left calf pain Has not fallen but she does think she stretched her hip too much when she was trying to put on socks CT lumbar spine with multilevel DJD Orthopedic opinion appreciated. 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 DVT prophylaxis: Subcutaneous heparin Activity level: Comes from home, lives with , used to use a walker for ambulation prior to admission until the current problem started 2-3 days ago * Fidel Jenkins RN - 09/17/2020 1:26 AM CDT Problem: Fall Risk Goal: Fall risk and fall related injury risk are minimized (interventions related to the fall risk can be found in the flowsheet documentation) Outcome: Progressing Note: Ms. Leon will have lower fall risk. Will continue to monitor. Problem: Tissue Injury Due to External Forces of Pressure, Friction, and Shear Goal: Protect Skin from External Forces Outcome: Progressing Note: Wound care for Ms. Leon. Problem: Skin Integrity Goal: Skin integrity is maintained or improved Outcome: Progressing Note: Ms. Leon's skin integrity will be maintained. * Jasmyn Boyce RN - 09/16/2020 5:10 PM CDT Shift Summary: Pain controlled. Vitals are stable. BM this shift. x2 assist to BSC. Tolerating diet. CT lumbar spine done. Tolerating diet. Patient resting. Call light in reach. Jasmyn Boyce RN 09/16/2020 5:17 PM * Elieser Mccartney MD - 09/16/2020 2:24 PM CDT Admit Date: 09/14/2020 2:51 PM Hospital Day: 2 Reason for visit/follow up: 79 year old with DM, A fib, familial demyelinating disease admitted with pain with ambulation X 2-3 days. No falls New Symptoms Patient has no new symptoms. Pain controlled since she is not walking Data Vitals: 09/15/20 1606 09/15/20 1945 09/16/20 04109/16/20 0819 BP: 121/50 122/55 119/70 123/60 Pulse: 78 83 74 72 Resp: 18 18 18 18 Temp: 98.2 ??F (36.8 ??C) 98.3 ??F (36.8 ??C) 97.8 ??F (36.6 ??C) 97.8 ??F (36.6 ??C) SpO2: 90% 91% 94% 94% Weight: Height: Intake/Output Summary (Last 24 hours) at 09/16/2020 1424 Last data filed at 09/16/2020 0417 Gross per 24 hour Intake 240 ml Output 2700 ml Net -2460 ml My review of labs, imaging, notes and other tests is significant for hypokalemia, hyponatremia, anemia Recent Labs Component Name 09/16/2041609/15/2033609/14/20 1553 SODIUM 136 134* 137 POTASSIUM 3.1* 3.1* 3.2* CHLORIDE 103 100 98 CO2 26 25 27 BUN 27* 36* 34* CREATININE 0.80 0.91 1.32* GLUCOSE 138* 111* 180* CALCIUM 9.8 9.6 10.3 Recent Labs Component Name 09/16/2041609/15/20 03309/14/20 1553 WBC 12.5* 12.8* 15.7* HGB 12.5 11.9* 13.5 HCT 39.9 37.8 43.2 PLTCOUNT [id number] MEDICATIONS FOR CURRENT ENCOUNTER: SCHEDULED MEDICATIONS: 0.9% NaCl injection 3 mL, Intracatheter, q8h amitriptyline (Elavil) tablet 50 mg, Oral, AT BEDTIME aspirin chew tablet 81 mg, Oral, QDAY atorvastatin (Lipitor) tablet 40 mg, Oral, AT BEDTIME bromfenac Sodium (Prolensa) 0.07 % opthalmic solution 1 drop, Right Eye, QDAY clopidogrel (plaVIX) tablet 75 mg, Oral, AT BEDTIME dorzolamide (Trusopt) 2 % ophthalmic solution 1 drop, Each Eye, BID flecainide (Tambocor) tablet 50 mg, Oral, BID furosemide (Lasix) tablet 40 mg, Oral, QDAY heparin injection 5,000 Units, Subcutaneous, q8h insulin aspart (NovoLOG) pen 0-6 Units, Subcutaneous, TID WC insulin glargine (Lantus) pen 8 Units, Subcutaneous, QDAY levothyroxine (Synthroid) tablet 50 mcg, Oral, QDAY AT 0600 pantoprazole EC (Protonix) tablet 40 mg, Oral, QDAY potassium chloride (Klor-Con) packet 20 mEq, Oral, QDAY WITH BREAKFAST spironolactone (Aldactone) tablet 25 mg, Oral, QDAY verapamil CR (Isoptin-SR) tablet 120 mg, Oral, AT BEDTIME [COMPLETED] potassium chloride ER (Klor-Con M) tablet 40 mEq, Oral, Once ?? [START ON 09/19/2020] metOLazone (Zaroxolyn) tablet 2.5 mg, Oral, Once per day on Fri ?? CONTINUOUS MEDICATIONS: Exam General appearance: alert, cooperative, Heart: regular rhythm, normal S1 and S2, without murmurs, Lungs: breath sounds symmetric; no rales or wheezes Abdomen: soft , non-tender, with normal bowel sounds Extremities: no cyanosis or edema Assessment and Plan left hip pain / left calf pain Has not fallen but she does think she stretched her hip too much when she was trying to put on socks CT lumbar spine with multilevel DJD Orthopedic opinion appreciated. MRI left hip pending Venous doppler neg for DVT hypokalemia Leukocytosis Diabetes mellitus type 2 Resumed lantus at lower dose Applying SSI I have reviewed the last 24 hours of blood glucose measurements and they are in reasonable range Regular diet per patient request CKD 2-3 Stable creatinine Replacing K again today Recheck in am Hyperlipidemia On statin Spastic paraplegia, familial Has been following with Dr Ross for years Has chronic olivas at home Thyroid disease Continue levothyroxine GERD PPI CAD noted Paroxysmal atrial fibrillation Continue home meds Not on anticoagulation GERD PPI Osteoporosis breast cancer, left sided Outpatient oncology follow up ?? DVT prophylaxis: Subcutaneous heparin Activity level: Comes from home, lives with , used to use a walker for ambulation prior to admission until the current problem started 2-3 days ago * Jasmyn Boyce RN - 09/16/2020 10:31 AM CDT Problem: Fall Risk Goal: Fall risk and fall related injury risk are minimized (interventions related to the fall risk can be found in the flowsheet documentation) Outcome: Progressing Fall precautions maintained Problem: Skin Integrity Goal: Skin integrity is maintained or improved Outcome: Progressing Monitoring skin integrity * Fidel Jenkins RN - 09/16/2020 6:00 AM CDT Patient A&OX4. Hard of hearing. Denied pain. Refused to be turned in bed. This nurse encouragedher turn q2 hours to prevent further skin breakdown. Patient agrees. No other complaints. VSS. Willcontinue to monitor. * Fidel Jenkins RN - 09/16/2020 12:57 AM CDT Problem: Fall Risk Goal: Fall risk and fall related injury risk are minimized (interventions related to the fall risk can be found in the flowsheet documentation) Outcome: Progressing Note: Ms. Leon will have lower fall risk. Continue to monitor. Problem: Tissue Injury Due to External Forces of Pressure, Friction, and Shear Goal: Protect Skin from External Forces Outcome: Progressing Note: Wound and skin care for Ms. Leon. Problem: Skin Integrity Goal: Skin integrity is maintained or improved Outcome: Progressing Note: Ms. Leon's skin integrity will be improved. Contiue q2 turn. * Fidel Jenkins RN - 09/15/2020 11:19 PM CDT Images from the original note were not included. 09/15/201928 Pressure Ulcer Buttock Medial Assessment Date/Assessment Time: 09/15/202317 Location: Buttock Orientation: Medial Wound Bed Assessment Deep pink;Pearly pink Exudate Description None Wound Margin Undefined edges Staging (Pressure Ulcers only) (Suspected) Deep Tissue Injury Erica-wound Skin Assessment Erythema/Red Dressing/Treatment Cleansed;Open to air;Moisture barrier cream Dressing Status Not Applicable Photo taken Yes - see Notes * Rosa Hernandez RN - 09/15/2020 6:46 PM CDT Problem: Fall Risk Goal: Fall risk and fall related injury risk are minimized (interventions related to the fall risk can be found in the flowsheet documentation) Outcome: Progressing Problem: Mobility Goal: STG - Patient will ambulate Description: 25 ft mod assist, 2 wheeled walker Outcome: Progressing * Rosa Hernandez RN - 09/15/2020 6:02 PM CDT Shift Summary: Medications given as ordered RA VSS A&O X4 Bed in lowest position Call light within reach * Livia Randle RN - 09/15/2020 2:26 PM CDT Case Management Initial Assessment Case Management screen completed & Welcome Letter given. Anticipated level of care at discharge: Home, Home Health Care, [facility] - Skilled Facility, Acute Rehab Facility Discharge Plans: TBD 79 year old with DM, A fib, familial demyelinating disease admitted with pain with ambulation X 2-3days. No falls Ortho on case Left hip pain of unknown etiology suspicious for stress fracture left hip MRI has been ordered. Basic Needs Assessment (BNA) Score: 10 Met with CM met with pt at bedside. Pt lives with her spouse. She is normally ambulatory however asof late she has been able to get around. She has a bedside commode. She was using a walker. Her spouse will transfer home at time of discharge. Pt will update family on discharge plan CM will continue to follow. 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 no Anticipated Discharge Date: 09/18/20 Prior Level of Functioning: Anticipated level of care at discharge: Home, Home Health Care, [facility] - Skilled Facility, Acute Rehab Facility Transportation at Discharge: Family Transportation to MD appointments: Family Equipment at Home: Equipment At Home: Walker-2 Wheeled Additional equipment needed at home but does not have: If no PCP, action taken: Pharmacy benefit: no Medication affordability concerns: no Hunger Screening: Within the past 12 months the food we bought just didn't last and we didn't have money to get more.: Never true Within the past 12 months we worried whether our food would run out before we got money to buy more: Never true Food Bank Resources Provided: Not offered to the patient Sand Temperer Referral: no If patient requires HHC at discharge, he/she requests: Will continue to follow. For any questions or needs please contact: Aircraft [employer]dnance Systems Mechanic Name/Phone number: Livia Randle RN [phone] * Elieser Mccartney MD - 09/15/2020 10:34 AM CDT Admit Date: 09/14/2020 2:51 PM Hospital Day: 1 Reason for visit/follow up: 79 year old with DM, A fib, familial demyelinating disease admitted with pain with ambulation X 2-3 days. No falls New Symptoms Patient has no new symptoms Data Vitals: 09/15/20 0411 09/15/20 0737 09/15/20 0852 09/15/20 0855 BP: 128/52 115/53 114/59 114/59 Pulse: 71 Resp: 18 Temp: 97.4 ??F (36.3 ??C) SpO2: 92% Weight: Height: Intake/Output Summary (Last 24 hours) at 09/15/2020 1034 Last data filed at 09/15/2020 0851 Gross per 24 hour Intake 360 ml Output 1300 ml Net -940 ml My review of labs, imaging, notes and other tests is significant for hypokalemia, hyponatremia, anemia Recent Labs Component Name 09/15/20 0337 09/14/20 1553 06/09/20 0839 SODIUM 134* 137 137 POTASSIUM 3.1* 3.2* 4.3 CHLORIDE 100 98 100 CO2 25 27 28 BUN 36* 34* 26* CREATININE 0.91 1.32* 1.12* GLUCOSE 111* 180* 220* CALCIUM 9.6 10.3 10.5* Recent Labs Component Name 09/15/20 0337 09/14/20 1553 03/05/19 1301 WBC 12.8* 15.7* 7.0 HGB 11.9* 13.5 12.6 HCT 37.8 43.2 41.0 PLTCOUNT 309 [id number] 319 MEDICATIONS FOR CURRENT ENCOUNTER: ?? SCHEDULED MEDICATIONS: ?? 0.9% NaCl injection 3 mL, Intracatheter, q8h ?? amitriptyline (Elavil) tablet 50 mg, Oral, AT BEDTIME ?? aspirin chew tablet 81 mg, Oral, QDAY ?? atorvastatin (Lipitor) tablet 40 mg, Oral, AT BEDTIME ?? bromfenac Sodium (Prolensa) 0.07 % opthalmic solution 1 drop, Right Eye, QDAY ?? clopidogrel (plaVIX) tablet 75 mg, Oral, AT BEDTIME ?? dorzolamide (Trusopt) 2 % ophthalmic solution 1 drop, Each Eye, BID ?? flecainide (Tambocor) tablet 50 mg, Oral, BID ?? furosemide (Lasix) tablet 40 mg, Oral, QDAY ?? heparin injection 5,000 Units, Subcutaneous, q8h ?? insulin aspart (NovoLOG) pen 0-6 Units, Subcutaneous, TID WC ?? insulin glargine (Lantus) pen 8 Units, Subcutaneous, QDAY ?? levothyroxine (Synthroid) tablet 50 mcg, Oral, QDAY AT 0600 ?? pantoprazole EC (Protonix) tablet 40 mg, Oral, QDAY ?? potassium chloride (Klor-Con) packet 20 mEq, Oral, QDAY WITH BREAKFAST ?? spironolactone (Aldactone) tablet 25 mg, Oral, QDAY ?? verapamil CR (Isoptin-SR) tablet 120 mg, Oral, AT BEDTIME ?? [COMPLETED] amitriptyline (Elavil) tablet 50 mg, Oral, Once ?? [COMPLETED] clopidogrel (plaVIX) tablet 75 mg, Oral, Once ?? [COMPLETED] flecainide (Tambocor) tablet 50 mg, Oral, Once ?? [COMPLETED] ketorolac (Toradol) injection 15 mg, Intravenous, Now ?? [COMPLETED] pantoprazole EC (Protonix) tablet 40 mg, Oral, Once ?? [COMPLETED] potassium chloride ER (Klor-Con M) tablet 20 mEq, Oral, Once ?? [COMPLETED] potassium chloride ER (Klor-Con M) tablet 40 mEq, Oral, Once ?? [COMPLETED] verapamil CR (Isoptin-SR) tablet 120 mg, Oral, Once ?? [START ON 09/19/2020] metOLazone (Zaroxolyn) tablet 2.5 mg, Oral, Once per day on Fri ?? CONTINUOUS MEDICATIONS: Exam General appearance: alert, cooperative, Heart: regular rhythm, normal S1 and S2, without murmurs, Lungs: breath sounds symmetric; no rales or wheezes Abdomen: soft , non-tender, with normal bowel sounds Extremities: no cyanosis or edema Assessment and Plan left hip pain / left calf pain Has not fallen but she does think she stretched her hip too much when she was trying to put on socks CT lumbar spine pending Orthopedic opinion hypokalemia Leukocytosis Diabetes mellitus type 2 Resumed lantus at lower dose Applying SSI I have reviewed the last 24 hours of blood glucose measurements and they are in reasonable range CKD 2-3 Stable creatinine Replacing K Hyperlipidemia On statin Spastic paraplegia, familial Has been following with Dr Ross for years Has chronic olivas at home Thyroid disease Continue levothyroxine GERD PPI CAD noted Paroxysmal atrial fibrillation Continue home meds Not on anticoagulation GERD PPI Osteoporosis breast cancer, left sided Outpatient oncology follow up ?? DVT prophylaxis: Subcutaneous heparin Activity level: Comes from home, lives with , used to use a walker for ambulation prior to admission until the current problem started 2-3 days ago * Torri Teixeira, PT - 09/15/2020 9:45 AM CDT Physical Therapy Evaluation. PT orders received, chart reviewed for diagnosis and medical systems review.. Nursing consents for PT. Explained purpose of PT and patient consented to participate in therapy. 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 Pt states pain in L hip when attempting to WB, when I try to step on it, it feels like it will give out . Pt receives assistance for ADLs and IADLs from children or friend. Pt states her is not able to help due to health conditions. Home Situation: Type of Residence: Private Residence Lives with:: Spouse Steps to Enter: No Home Structure: One Story;Basement Equipment At Home: Chair-Shower;CPAP;Grab Bars;Walker-2 Wheeled;Walker-4 Wheeled with Seat;Wheelchair-Standard;Commode-Bedside Prior Level of Functioning: Mobility: Ambulate-In Home ;Independent;With Assistive Device Fallen Within 6 Mos: 1 Have Help at Home?: Yes, there is help at home now How often is assistance provided?: grocery delivery Activity at Home: Sedentary Oxygen at Home: CPAP at night Pain Assessment:Pt reports L hip pain. Patient/family stated goal: To go home. OBJECTIVE: Cognition: Orientation Level: Oriented X4 Cognition: Follows Commands-Consistent;Processing-Appropriate;Judgement-appropriate;Safety awareness-appropriate Level of Consciousness-Adult: Alert Participation: Active Participation Precautions: Falls, monitor BP ROM and Strength: AROM - Right Lower Extremity: Exceptions (Limited Hip flexion) Strength - Right Lower Extremity: Exceptions (Hip flexion 3-/5) AROM - Left Lower Extremity: Exceptions (Limited hip flexion) Strength - Left Lower Extremity: Exceptions (hip 2+/5) Balance: Sitting - Static: Good - Sitting - Dynamic: Fair Bed Mobility: Supine to Sit: Moderate Assistance;X 2 Sit to Supine: Moderate Assistance;X 2 Transfers: Sit to Stand: Activity Does Not Occur Stand to Sit: Activity Does Not Occur - deferred this date due to pending CT of lumbar spine. Activity Tolerance/Oxygen Requirements and Vitals: BP: 114/59 (sitting edge of bed) ASSESSMENT: Pt tolerated session well. EOB assessment performed this date due to pending CT of lumbar spine. Pt requires Ax2 for bed mobility. Pt displayed fair sitting balance, required min A to maintain dynamic balance. Pt exhibits impaired hip flexion strength and ROM L > R. Pt exhibits good knee extension and ankle dorsiflexion strength and ROM. Plan to further assess mobility in future sessions. Pt would continue to benefit from PT. Call light and phone in reach with bed alarm activated. All lines, monitors, IV's, equipment in place and intact pre and post visit. RN, Rosa, notified of patient's performance/location end of session. SPT Gerald, present to assist throughout the session. OT Anahy, present to assist throughout the session. Pt educated in PT plan of care, fall precautions, and benefits of OOB activity. Problem list: decreased strength, decreased balance, decreased endurance, decreased ROM, decreased coordination Functional limitations: Decreased independence with ambulation/transfers, decreased safety with functional mobility. Rationale for therapy: Patient will benefit from PT to address the above issues. Refer to Plan of Care for PT goals. Please refer to Filed Flowsheet PT Evaluation for further details. RECOMMENDATIONS/PLAN: PT Discharge Recommendations: To Be Determined Recommended Transportation Method: Stretcher/Ambulance If this is the last PT visit, this note serves as the discharge summary. Torri PT DPT [phone] * Anahy Cabrales OT - 09/15/2020 9:42 AM CDT Occupational Therapy Initial Evaluation Orders received. Chart reviewed for diagnosis and medical systems review. Nursing consented for OT. Explained purpose of OT and patient consented to participate in therapy. Precautions: falls, skin, chronic olivas SUBJECTIVE: Pt reports she has lots of support at home, her kids come over often to assist with IADLs. She states her assists with LE dressing and her friend assists with bathing via sponge bath. She states she was donning sock on L hip by crossing hip over leg and felt it pop. Since then she has had a hard time ambulating d/t pain in L hip. She uses 4ww for ambulation in the home. Recently unable to perform toilet transfers. Psychosocial: Patient Behaviors: Calm;Cooperative Pt's goal for therapy: go home Occupational Profile/PLOF: Type of Residence: Private Residence Lives with:: Spouse Home Structure: One Story;Basement Steps to Enter: No Handrails: Outdoor Ramp: Yes Primary Bedroom: First Floor Primary Bathroom: First Floor Bathroom : Tub/Shower Combo Equipment At Home: Chair-Shower;CPAP;Grab Bars;Walker-2 Wheeled;Walker-4 Wheeled with Seat;Wheelchair-Standard;Commode-Bedside Mobility: Ambulate-In Home ;Independent;With Assistive Device Fallen Within 6 Mos: 1 Have Help at Home?: Yes, there is help at home now How often is assistance provided?: grocery delivery (friend comes 2x a day (does therapy) and cleans ) Level of Help Sufficient?: Other (Comment) (TBD) Oxygen at Home: CPAP at night Activity at Home: Sedentary Who manages medications?: family (daughter/ ) Vision: Corrected with glasses Hearing Exceptions: Bilateral Hearing Aid Cognition: Orientation Level: Oriented X4 Level of Consciousness-Adult: Alert Cognition: Follows Commands-Consistent;Attention/concentration-normal for age;Judgement-appropriate;Safety awareness-appropriate;Processing-Appropriate Attention Span: Attends with cues to redirect Pain Assessment: Pain Rating Score #: (unrated ) Pain Location : Hip Pain Orientation: Left RUE Assessment: AROM - Right Upper Extremity: Within Functional Limits Strength - Right Upper Extremity: Within Functional Limits Chemist Biological Strength: Chemist Biological Strength - Right Upper Extremity: 5 LUE Assessment: AROM - Left Upper Extremity: Within Functional Limits Strength - Left Upper Extremity: Within Functional Limits Chemist Biological Strength: Chemist Biological Strength - Left Upper Extremity: 5 : Basic ADL's: Feeding: Complete [place] Oral Facial Hygiene: Set-up (seated) Bathing: Moderate Assistance (seated- anticipated ) Upper Body Dressing: Minimal Assistance Lower Body Dressing: Maximal Assistance Toileting: Total Assistance (chronic olivas ) Functional Mobility: Bed Mobility: Supine to Sit: Moderate Assistance;X 2 Sit to Supine: Moderate Assistance;X 2 Transfers: Sit to Stand: Activity Does Not Occur Balance: Static sitting: Good; with both UE support Dynamic sitting: Fair +; with one UE support Vitals: Activity Tolerance: Requires rest breaks BP: 114/59 ((sitting) 109/49 supine ) ASSESSMENT: EOB assessment only this date, per MD request pending results of CT of lumbar spine. Pttolerated session well, pleasant and eager to participate. Pt with B LE weakness (L>R), noted ptwith hx of familial spastic paraplegia and TIA. Pt with slight decreased coordination of UE (L>R) and significantly decreased LE coordination. Pt requires Ax2 for bed mobility, able to maintain static sitting balance EOB and participate in seated ADLs. Pt with occasional difficulty with word finding though not impacting pt's ability to functionally communicate. OT will continue to follow and assess OOB ADLs and mobility, pending CT results. Call light and phone in reach with bed alarm activated. All lines, monitors, IV's, equipment in place and intact pre and post visit. RNRosa, notified of patient's performance/location end of session. PTTorri, present to assist throughout the session. PT student Gerald observing. Problem list: Decreased strength, decreased LE ROM, decreased endurance, decreased balance, impaired functional mobility, decreased coordination Functional limitation: Decreased independence with transfers; decreased ability to perform ADLs, decreased UE strength, decreased safety with functional mobility. Rationale for therapy: Patient will benefit from OT to address the above issues. Patient will be seen for: ADL retraining, functional transfers, balance, endurance, exercise. Refer to Plan of Care for OT goals. Refer to filed flow sheet for further details. RECOMMENDATIONS/PLAN: OT Discharge Recommendations: To Be Determined If this is the last Occupational Therapy visit, this serves as the discharge summary. RENAY Higginbotham/Jason X [id number] * ChristinaGamaliel PharmD - 09/14/2020 8:45 PM CDT [facility] Pharmacy Services Admission Medication Review Loc Leon is a 79 year old female I have reviewed patient's home medication list with the patient, the family, and a patient suppliedlist. The medication list review was before the physician has seen or acted upon, and is now ready for re-review/order by physician. Medication List Revisions Medications removed: - Systane - latanoprost - duplicate levothyroxine - Calmospetine - Nystatin - Nystatin-triamcinolone Medications added: - Benefiber - Prolia Medications were modified to correct dosage or frequencies: - Lantus changed to 10 units QAM Thank you for the opportunity to take part of Loc Leon's care. Gamaliel Vasquez PharmD documented in this encounter H&P Notes * Mahad Walsh MD - 09/15/2020 3:04 AM CDT Date of Admission : 09/14/2020 PCP: Theresa Camargo MD Reason for Admission : HPI: Pt is a 79 year old who has a past medical history of Asthma (2012), Atrial fibrillation (2015), Breast cancer (08/25/2017), Broken ankle (12/19/2003), CAD (coronary artery disease), Chronic idiopathicconstipation (12/12/2017), Chronically dry eyes (06/26/2018), DM (diabetes mellitus), Duodenal ulcer, u nspecified as acute or chronic, without hemorrhage, perforation, or obstruction (1977), Familial spastic paraplegia (1979), Fracture of sacrum (05/1999), Glaucoma (06/2003), Heart murmur (01/27/2004, 03/13/2004), History of TIA (transient ischemic attack) (10/22/2017), 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), HTN (hypertension), Hyperparathyroidism (06/26/2018), Hypothyroid, IBS (irritable bowelsyndrome), Iron deficiency anemia due to chronic blood loss (12/12/2017), Left ventricular hypertrophy (06/26/2018), Lymphatic edema, 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 Patient with past medical history listed above including familial spastic paraplegia, CAD on aspirin and Plavix, history of breast cancer, following up with Oncology, diabetes mellitus, history of paroxysmal atrial fibrillation, not on anticoagulation, thyroid disease, GERD, hypertension, hyperlipidemia, and headaches patient presented to the ER for difficulty ambulating, she usually ambulates with a walker with difficulty, is becoming more difficult in the past 3 days, she noticed left-sided pain status causing left leg to give out, she was seen by her home health RN today and was told to some swelling on her left calf, so she was advised to present to the ER for DVT workup as well as difficulty ambulating and left hip pain her pain is constant, worsening in the last 3 days, is not radiating, no back pain,she has chronic urinary catheter, otherwise she denies any symptoms such as fever or chills, cough or shortness of breath, chest pain or pressure urinary changes she denies any CP, SOB, CHARLES, palpitations Has no cough, hemoptysis, URI symptoms, Denies nausea, vomiting ,abdominal pain, diarrhea, melena, constipation Has no fever or chills, rash , flank pain , Has no lightheadedness, dizziness, no headache, in the emergency department, blood pressure 138/71, pulse 88, respiratory rate 18, oxygen saturation 99% on room air Lab studies with total WBCs 15.7, normal hemoglobin, platelets Glucose 180, potassium 3.2, creatinine 1.32, BUN 34 x-ray of the left hip showing joint space narrowing with no fractures, dislocations or destruction left lower extremity venous Doppler, prelim no acute DVT UA was ordered in ER, pending, patient was admitted to the floor for further investigation and management. Allergies Allergies Allergen Reactions ??? Advair Diskus YEAS INFECTION ??? Aricept [Donepezil] Other I dont remember ??? Diltiazem Swelling ??? Metformin Diarrhea ??? Black Pepper [[place]] Unknown ??? Fluticasone Diarrhea ??? Salmeterol Diarrhea ??? Sotalol Other Hair loss Past Medical History: Diagnosis Date ??? Asthma [...] T1cN0(i-)M0, stage IA. ER pos 97% (strong), IA pos 23% (moderate), Her-2 neg (1+ on [...] AND LT ARM ??? THYROID NEEDLE BIOPSY No current facility-administered medications on file prior to encounter. Current Outpatient Medications on File Prior to Encounter Medication Sig Dispense Refill ??? albuterol HFA [...] IN POSTMENOPAUSAL WOMEN 90 tablet 3 ??? aspirin (ASPIRIN) 81 MG tablet Take 81 mg by mouth once daily ??? BD PEN NEEDLE MADDI U/F 32G X 4 MM MISC USE TO INJECT INSULIN ONCE DAILY ??? canagliflozin (INVOKANA) 100 MG tablet Take 100 mg by mouth daily before breakfast ??? clopidogrel (PLAVIX) 75 MG tablet Take 1 tablet by mouth at bedtime 90 tablet 4 ??? Cranberry-Vitamin C (AZO CRANBERRY URINARY TRACT) [...] Take 1 packet by mouth once daily Social History Has been reviewed Social History Socioeconomic History ??? Marital status: Spouse name: Not on file ??? Number of children: 3 ??? Years of education: Not on file ??? Highest education level: Not on file Occupational History ??? 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 Smoking status: Never Smoker ??? Smokeless tobacco: Never Used Vaping Use ??? Vaping Use: Never used Substance and Sexual Activity ??? Alcohol use: No Alcohol/week: 0.0 standard drinks ??? Drug use: No ??? Sexual activity: Not on file Other Topics Concern ??? Service No ??? [...] Social Determinants of Health Financial Resource Strain: ??? Difficulty of Paying Living Expenses: Food Insecurity: ??? Worried About Running Out of Food in the Last Year: ??? Ran Out of Food in the Last Year: Transportation Needs: ??? Lack of Transportation (Medical): ??? Lack of Transportation (Non-Medical): Physical Activity: ??? Days of Exercise per Week: ??? Minutes of Exercise per Session: Stress: ??? Feeling of Stress : Social Connections: ??? Frequency of Communication with Friends and Family: ??? Frequency of Social Gatherings with Friends and Family: ??? Attends Jew Services: ??? Active Member of Clubs or Organizations: ??? Attends Club or Organization Meetings: ??? Marital Status: Intimate Partner Violence: ??? Fear of Current or Ex-Partner: ??? Emotionally Abused: ??? Physically Abused: ??? Sexually Abused: Family History Has been reviewed and is noncontributory to the patient family history includes CAD (Coronary Artery Disease) in her brother and father; Cancer - Breast inher mother. ROS As per HPI, rest of the 14 point ROS were reviewed and were negative PHYSICAL EXAM: Patient Vitals for the past 24 hrs: Temp Pulse Resp BP 09/14/20 2257 97.7 ??F (36.5 ??C) 77 18 113/67 09/14/20 2101 -- 88 20 138/66 09/14/20 1449 97.8 ??F (36.6 ??C) 88 18 138/71 General appearance: alert, cooperative, no distress, HEENT : No JVD, non icteric conjunctiva Normocephalic , MM moist CVS: normal S1 and S2, without murmurs, rubs or gallops Pulm: breath sounds normal and symmetric; GI: soft without mass, non-tender, with normal bowel sounds MSK/Extremities: no clubbing, cyanosis or edema Neuro: alert and oriented x 3, bilateral lower extremity weakness and sensory deficit baseline Psych: calm, Skin: no rash Recent Labs Component Name 09/14/20 1553 SODIUM 137 POTASSIUM 3.2* CHLORIDE 98 CO2 27 BUN 34* CREATININE 1.32* GLUCOSE 180* CALCIUM 10.3 ALBUMIN 4.3 ALKPHOS 85 ALT 21 AST 14 TBIL 0.4 TPROT 7.6 EGFR 39 Recent Labs Component Name 09/14/20 1553 11/26/19 0945 03/05/19 1300 ALBUMIN 4.3 4.0 3.9 ALKPHOS 85 93 95 ALT 21 22 20 AST 14 17 17 TBIL 0.4 0.3 0.3 TPROT 7.6 7.0 6.2* No results for input(s): TROPONIN in the last 43386 hours. Recent Labs Component Name 09/14/20 1553 03/05/19 1301 11/06/18 1043 WBC 15.7* 7.0 7.2 HGB 13.5 12.6 11.2* HCT 43.2 41.0 38.2 PLTCOUNT 355 319 327 Recent Labs Component Name 05/05/20 1353 11/26/19 0855 11/06/18 1043 TSH 2.74 2.812 2.9182 No results for input(s): HCGQUAL, HCGURINE in the last 49352 hours. LABS AND IMAGING DONE SINCE ADMISSION WERE REVIEWED BY ME ASSESSMENT AND PLAN left hip pain / left calf pain hypokalemia Leukocytosis Diabetes mellitus type 2 hypokalemia CKD Hypertension Hyperlipidemia Spastic paraplegia, familial Thyroid disease GERD CAD Paroxysmal atrial fibrillation Headaches GERD Osteoporosis breast cancer, left sided plan Patient presented to the ER with left hip pain, as well as left cough pain and swelling, unclear ifradiculopathy in nature or related to underlying neurological disease, x-ray with no acute findings, will order CT of the lumbar spine for further evaluation, PT/ OT concern for left lower extremity pain and swelling, venous Doppler done in ER, preliminary negativefor DVT Leukocytosis: Patient does not have any other symptoms UA ordered ED, pending, patient has chronic Olivas catheter, asymptomatic, monitor CBC in a.m.check cxr, diabetes mellitus type 2: Resume home Lantus, with reduced dose, add sliding scale insulin hypokalemia: Replace and monitor CKD: Creatinine 1.3 on admission, monitor creatinine avoid nephrotoxins continue home medications for chronic medical conditions including Hypertension Hyperlipidemia Thyroid disease GERD CAD Paroxysmal atrial fibrillation Headache Breast cancer, left, follows with oncology as an outpatient DVT prophylaxis: Subcu heparin Code status: Full code Activity level: Comes from home, lives with , used to use a walker for ambulation prior to admission documented in this encounter Consult Notes * Ludy Shankar - 09/20/2020 7:30 PM CDT Received home care orders, referral sent to [facility] per patient request. Awaiting response whether they can accept the referral. Face sheet, HH orders, admitting H&P & AVS were faxed. Ludy Shankar Admissions Associate [facility] * Ludy Shankar - 09/20/2020 7:30 PM CDTAssociated Order(s): IP CONSULT TO HOME HEALTH CARE Patient has been discharged to . All paperwork previously faxed. Spoke to [facility] who stated they are open with patient currently & will resume HH. Thank you for the referral. Alanna Shankar Admissions Associate [facility] * Lavelle Carrera IV, MD - 09/15/2020 1:22 PM CDTAssociated Order(s): IP CONSULT TO ORTHOPEDIC SURGERY Patients Name:Loc Leon Today's date: 09/15/2020 Date of Service: Subjective: Patient is a 79 year old white female presented with a history of 10 days of left hip pain with weight bearing pain is in the groin severe and causes the leg to give way no history of injury xrays normal. Patient Active Problem List Diagnosis Date Noted ??? Left hip pain 09/14/2020 Priority: Not Prioritized ??? Ambulatory dysfunction 09/14/2020 Priority: Not Prioritized ??? Change in bowel habits 06/14/2020 Priority: Not Prioritized ??? Atrial fibrillation 11/23/2019 Priority: Not Prioritized ??? Partial seizure 06/26/2018 Priority: Not Prioritized 2000 ??? OAB (overactive bladder) 06/26/2018 Priority: Not Prioritized ??? Left ventricular hypertrophy 06/26/2018 Priority: Not Prioritized ??? Hyperparathyroidism 06/26/2018 Priority: Not Prioritized ??? Heart murmur Priority: Not Prioritized ??? CATY (obstructive sleep apnea) Priority: Not Prioritized ??? CAD (coronary artery disease) Priority: Not Prioritized Last Stress test 12/2015 Dr. Valencia 60 % blockage 2010 ??? TIA (transient ischemic attack) Priority: Not Prioritized ??? Lymphatic edema Priority: Not Prioritized ??? Primary hypothyroidism 05/06/2018 Priority: Not Prioritized ??? Calcification of aorta 02/04/2018 Priority: Not Prioritized CT Abd/Pelv 12/17/17 CXR 08/25/17 ??? Iron deficiency anemia due to chronic blood loss 12/12/2017 Priority: Not Prioritized ??? Chronic idiopathic constipation 12/12/2017 Priority: Not Prioritized ??? Osteopenia of multiple sites 10/29/2017 Priority: Not Prioritized ??? Mixed hyperlipidemia 10/22/2017 Priority: Not Prioritized ??? History of TIA (transient ischemic attack) 10/22/2017 Priority: Not Prioritized ??? 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 ER pos 97% (strong), IA pos 23% (moderate), Her-2 neg (1+ on IHC), Ki-67 19% S/p 08/25/2017 excisional biopsy (Kate); spastic paraplegia: 1.1 cm grade 2/3 IDC. No LVI. Margin neg S/p 09/08/2017 sentinel node biopsy (Kate): 2 neg nodes Med onc: Dr. Gonzalez: adjuvant anastrozole Rad onv: Dr. Garcia: decided against radiation ??? 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 Recurrent UTI 07/20/201903/2019 olivas catheter placed for incomplete emptying and overflow incontinence 04/[address] with cystitis 06/2019 proteus ??? 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 Asthma 01/07/2011 ??? HTN (hypertension) 01/07/2011 ??? Sleep apnea 01/07/2011 ??? Type 2 diabetes mellitus without complication 01/07/2011 Past Medical History: Diagnosis Date ??? [...] T1cN0(i-)M0, stage IA. ER pos 97% (strong), IA pos 23% (moderate), Her-2 neg (1+ on [...] to Admission Medication Sig Dispense Refill ??? albuterol HFA [...] IN POSTMENOPAUSAL WOMEN 90 tablet 3 ??? aspirin (ASPIRIN) 81 MG tablet Take 81 mg by mouth once daily ??? BD PEN NEEDLE MADDI U/F 32G X 4 MM MISC USE TO INJECT INSULIN ONCE DAILY ??? canagliflozin (INVOKANA) 100 MG tablet Take 100 mg by mouth daily before breakfast ??? clopidogrel (PLAVIX) 75 MG tablet Take 1 tablet by mouth at bedtime 90 tablet 4 ??? Cranberry-Vitamin C (AZO CRANBERRY URINARY TRACT) [...] use: No Alcohol/week: 0.0 standard drinks Family History Problem Relation Name Age of Onset ??? Cancer - Breast Mother ??? CAD (Coronary Artery Disease) Father CHF ??? CAD (Coronary Artery Disease) Brother CHF Review of Systems Pertinent items are noted in HPI Objective: Patient Vitals for the past 8 hrs: BP Temp Temp src Pulse Resp SpO2 09/15/20 1133 119/53 97.9 ??F (36.6 ??C) Oral 74 18 91 % 09/15/20 0855 114/59 -- -- -- -- -- 09/15/20 0852 114/59 -- -- -- -- -- 09/15/20 0737 115/53 97.4 ??F (36.3 ??C) Oral 71 18 92 % General appearance: alert, cooperative, no distress Extremities: no clubbing, cyanosis or edema Left hip pain with rom Imaging Review Normal left hip and pelvis Assessment: Active Problems: Left hip pain Ambulatory dysfunction Plan: Left hip pain of unknown etiology suspicious for stress fracture Ordered left hip MRI documented in this encounter ED Notes * Fatoumata Walls - 09/14/2020 10:15 PM CDT Report called to Navjot Villafuerte RN. No further questions at this time. * Fatoumata Walls - 09/14/2020 9:25 PM CDT Attempted to call report. No answer at this time. * Fatoumata Walls - 09/14/2020 9:20 PM CDT Attempted to call pharmacy for the rest of pt's home medications. No answer at this time. * Nena Aguirre, DES - 09/14/2020 8:25 PM CDT pharmacy at bedside * Nena Aguirre, DES - 09/14/2020 8:15 PM CDT contacted pharmacy to meet with pts daughter regarding home medications * Nena Aguirre RN - 09/14/2020 7:52 PM CDT sack lunch given * Fatoumata Walls - 09/14/2020 4:49 PM CDT X-ray at bedside. * Fatoumata Walls - 09/14/2020 4:13 PM CDT Pt roomed in room 28. Pt currently at vascular. Daughter at bedside. * Maryjane Khan MD - 09/14/2020 4:01 PM CDT [facility] [id number] [facility] History Chief Complaint Patient presents with ??? Pain Leg Patient reports pain and swelling to left leg X3 days, reports unable to bear weight on left leg anymore. Pt also reports left hip pain. HPI Patient is an 79-year-old female with a history of familial spastic paraplegia, CAD on aspirin and Plavix, breast cancer, diabetes, presenting with leg pain. Patient usually ambulates with a walker due to her spastic paraplegia. However, over the past 3 days, patient has been unable to ambulate because whenever she puts weight on her left leg she has severe left hip pain that causes her left leg to give out. Patient lives at home with her elderly and is not able to get herself to the bathroom or otherwise ambulate without assistance due to her new hip pain. Her home care nurse today thought she may have had some swelling in her calf as well, so she sent her to the ER for a DVT workup as well. On arrival, vitals within normal limits. I reviewed the patient's past medical record. No recent hospitalizations. Dr. Ross is her neurologist. Past Medical History: Diagnosis Date ??? Asthma [...] T1cN0(i-)M0, stage IA. ER pos 97% (strong), IA pos 23% (moderate), Her-2 neg (1+ on [...] ARM ??? THYROID NEEDLE BIOPSY Family History Problem Relation Name Age of Onset ??? Cancer - Breast Mother ??? CAD (Coronary Artery Disease) Father CHF ??? CAD (Coronary Artery Disease) Brother CHF Social History Socioeconomic History ??? Marital status: Spouse name: Not on file ??? Number of children: 3 ??? Years of education: Not on file ??? Highest education level: Not on file Occupational History ??? 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 Smoking status: Never Smoker ??? Smokeless tobacco: Never Used Vaping Use ??? Vaping Use: Never used Substance and Sexual Activity ??? Alcohol use: No Alcohol/week: 0.0 standard drinks ??? Drug use: No ??? Sexual activity: Not on file Other Topics Concern ??? Service No ??? [...] Social Determinants of Health Financial Resource Strain: ??? Difficulty of Paying Living Expenses: Food Insecurity: ??? Worried About Running Out of Food in the Last Year: ??? Ran Out of Food in the Last Year: Transportation Needs: ??? Lack of Transportation (Medical): ??? Lack of Transportation (Non-Medical): Physical Activity: ??? Days of Exercise per Week: ??? Minutes of Exercise per Session: Stress: ??? Feeling of Stress : Social Connections: ??? Frequency of Communication with Friends and Family: ??? Frequency of Social Gatherings with Friends and Family: ??? Attends Jew Services: ??? Active Member of Clubs or Organizations: ??? Attends Club or Organization Meetings: ??? Marital Status: Intimate Partner Violence: ??? Fear of Current or Ex-Partner: ??? Emotionally Abused: ??? Physically Abused: ??? Sexually Abused: Review of Systems Review of Systems Constitutional: Negative for chills and fever. HENT: Negative for congestion and sore throat. Eyes: Negative for blurred vision. Respiratory: Negative for cough and shortness of breath. Cardiovascular: Negative for chest pain and leg swelling. Gastrointestinal: Negative for abdominal pain, diarrhea, nausea and vomiting. Genitourinary: Negative for dysuria. Musculoskeletal: Positive for joint pain. Negative for myalgias. Leg pain Skin: Negative for rash. Neurological: Negative for loss of consciousness, weakness and headaches. Psychiatric/Behavioral: Negative for depression and suicidal ideas. All other systems reviewed and are negative. Physical Exam BP 138/71 Pulse 88 Temp 97.8 ??F (36.6 ??C) (Oral) Resp 18 Ht 1.651 m (5' 5 ) Wt 77.1 kg (170 lb) BMI 28.29 kg/m?? Physical Exam Vitals and nursing note reviewed. Constitutional: General: She is not in acute distress. Appearance: Normal appearance. HENT: Head: Normocephalic and atraumatic. Nose: Nose normal. Mouth/Throat: Mouth: Mucous membranes are moist. Eyes: Extraocular Movements: Extraocular movements intact. Conjunctiva/sclera: Conjunctivae normal. Cardiovascular: Rate and Rhythm: Normal rate. Pulmonary: Effort: Pulmonary effort is normal. No respiratory distress. Breath sounds: No wheezing. Abdominal: General: There is no distension. Palpations: Abdomen is soft. Tenderness: There is no abdominal tenderness. Genitourinary: Comments: Chronic indwelling Olivas (patient says this was placed about a year and half ago due to her spastic paraplegia) Musculoskeletal: General: No swelling or deformity. Normal range of motion. Cervical back: Normal range of motion. Comments: No obvious leg or calf swelling Skin: General: Skin is warm and dry. Neurological: Mental Status: She is alert and oriented to person, place, and time. Mental status is at baseline. Cranial Nerves: No cranial nerve deficit. Sensory: Sensory deficit (Decreased bilateral lower extremity sensation, patient's is consistent with baseline) present. Motor: Weakness (Bilateral lower extremity weakness, patient says consistent with baseline spastic paraplegia, symmetric) present. Psychiatric: Mood and Affect: Mood normal. Behavior: Behavior normal. Thought Content: Thought content normal. Judgment: Judgment normal. Medications Current Outpatient Medications Medication Sig Dispense Refill [...] IN POSTMENOPAUSAL WOMEN 90 tablet 3 ??? aspirin (ASPIRIN) 81 MG tablet Take 81 mg by mouth once daily ??? BD PEN NEEDLE MADDI U/F 32G X 4 MM MISC USE TO INJECT INSULIN ONCE DAILY ??? canagliflozin (INVOKANA) 100 MG tablet Take 100 mg by mouth daily before breakfast ??? clopidogrel (PLAVIX) 75 MG tablet Take 1 tablet by mouth at bedtime 90 tablet 4 ??? Cranberry-Vitamin C (AZO CRANBERRY URINARY TRACT) 250-60 MG Take 2 tablets by mouth once daily ??? Cyanocobalamin (B-12) 1000 MCG TBCR Take by mouth once daily. ??? dorzolamide (TRUSOPT) 2 % ophthalmic solution Instill 1 drop into both eyes 2 times daily ??? esomeprazole (NEXIUM) 40 MG capsule TAKE 1 CAPSULE DAILY 90 capsule 2 ??? FLECAINIDE ACETATE PO Take 50 mg by mouth 2 times [...] noon and 1 tab at bedtime ??? hydroxypropyl methylcellulose 0.3% (SYSTANE OVERNIGHT THERAPY) 0.3 % ophthalmic gel Instill 1 Drop into both eyes nightly as needed for Dry Eyes ??? LANTUS SOLOSTAR pen INJECT 8 UNITS SUBCUTANEOUSLY EVERY DAY IN THE MORNING ??? latanoprost (XALATAN) 0.005 % ophthalmic solution Instill 1 drop into both eyes at bedtime ??? levothyroxine (SYNTHROID) 25 MCG tablet Take 25 mcg by mouth daily before breakfast ??? 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 ??? menthol-zinc oxide (CALMOSEPTINE) 0.44-20.6 % ointment Apply to affected area as needed for Other ??? metOLazone (ZAROXOLYN) 2.5 MG tablet Take 2.5 mg by mouth Take 1 tab twice a week on Friday and ??? multivitamin with iron (ONE A DAY WITH IRON) tablet Take 1 Tab by mouth once daily. ??? nystatin (MYCOSTATIN) 344401 UNIT/GM powder Apply to affected area 2 times daily 60 g 0 ??? nystatin-triamcinolone (MYCOLOG) 102147-0.1 UNIT/GM-% cream Apply to affected area 2 times daily 30 g 0 ??? polyethyl glycol-propyl glycol (SYSTANE) 0.4-0.3 % ophth solution Instill 1 drop into both eyesonce as needed ??? potassium chloride ER (KLOR-CON) 20 MEQ [...] verapamil SR 24hr (VERELAN) 120 MG capsule TAKE 1 CAPSULE (120 MG TOTAL) BY MOUTH NIGHTLY ??? vitamin D3 (CHOLECALCIFEROL) 25 MCG (1000 UNITS) tablet Take 1,000 Units by mouth once daily ??? Water For Irrigation, Sterile 60 mL by Irrigation route once daily as needed (catheter not draining) 500 mL 3 Procedures Procedures Lab/SPO2 Interpretation Pulse Ox Interpretation: Saturation: (%) 93 Oxygen Delivery: Room air Interpretation: No hypoxia at this time. Rhythm strip interpretation: Normal sinus rhythm, no arrhythmia noted. Ventricular rate (bpm): 77 No results found for this visit on 09/14/20. XR PELVIS W LEFT HIP 2VW (Results Pending) VAS LEFT VENOUS DUPLEX LE (Results Pending) Progress Notes ED Course ED Course as of Sep 15 2317 Magali Sep 14, 2020 1654 DVT study negative. Awaiting x-ray. [AV] 1931 need urine [AV] ED Course User Index [AV] Maryjane Khan MD Clinical Impressions as of Sep 15 2317 Left hip pain Ambulatory dysfunction Medical Decision Making Patient is an 79-year-old female with a history of spastic paraplegia presenting with leg pain and ambulatory dysfunction. Differential diagnosis: DVT, arthritis, fracture Labs significant for: Create slightly elevated 1.32, WBC 15.7 Pelvis x-ray: Joint space narrowing, no acute fracture Venous Doppler: No acute DVT UA: Pending Patient treated with Toradol for pain. After discussion with patient and her family member, determine patient is very high risk for fall if she were to go home, since she is essentially unable to ambulate on her own and her is unable to assist her safely. Patient accepted for admission to the medicine service for further evaluation and possibly rehab placement while being worked up for her leg pain, which could be due to arthritis given the joint space narrowing on x-ray. No evidence ofseptic joint or other acute emergent pathology. This note was dictated using [email or web address] dictation software. Please excuse any dictation errors may havebeen missed while proofreading this note. Orders Placed This Encounter ??? XR PELVIS W LEFT HIP 2VW ??? CBC W AUTO DIFFERENTIAL ??? COMPREHENSIVE METABOLIC PANEL ??? VAS LEFT VENOUS DUPLEX LE ??? ketorolac (Toradol) injection 15 mg * José Luis Mederos PA-C - 09/14/2020 3:30 PM CDT RME Note CC: Pain Leg (Patient reports pain and swelling to left leg X3 days, reports unable to bear weight on left leg anymore. Pt also reports left hip pain. ) Provider in Triage HPI: Loc Leon is a 79 year old female who presents with hip pain radiating down to leg. Not able to walk on it for the last few days. 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 Hx of familial spastic paraplegia Review of Systems: Primary System Noted in HPI Constitutional: No fevers or chills Psychiatric: No mood changes Limited Chart History: Past Medical History: Diagnosis Date ??? [...] T1cN0(i-)M0, stage IA. ER pos 97% (strong), IA pos 23% (moderate), Her-2 neg (1+ on [...] AND LT ARM ??? THYROID NEEDLE BIOPSY No current facility-administered medications for this encounter. Current Outpatient Medications Medication Sig Dispense Refill [...] IN POSTMENOPAUSAL WOMEN 90 tablet 3 ??? aspirin (ASPIRIN) 81 MG tablet Take 81 mg by mouth once daily ??? BD PEN NEEDLE MADDI U/F 32G X 4 MM MISC USE TO INJECT INSULIN ONCE DAILY ??? canagliflozin (INVOKANA) 100 MG tablet Take 100 mg by mouth daily before breakfast ??? clopidogrel (PLAVIX) 75 MG tablet Take 1 tablet by mouth at bedtime 90 tablet 4 ??? Cranberry-Vitamin C (AZO CRANBERRY URINARY TRACT) 250-60 MG Take 2 tablets by mouth once daily ??? Cyanocobalamin (B-12) 1000 MCG TBCR Take by mouth once daily. ??? dorzolamide (TRUSOPT) 2 % ophthalmic solution Instill 1 drop into both eyes 2 times daily ??? esomeprazole (NEXIUM) 40 MG capsule TAKE 1 CAPSULE DAILY 90 capsule 2 ??? FLECAINIDE ACETATE PO Take 50 mg by mouth 2 times [...] noon and 1 tab at bedtime ??? hydroxypropyl methylcellulose 0.3% (SYSTANE OVERNIGHT THERAPY) 0.3 % ophthalmic gel Instill 1 Drop into both eyes nightly as needed for Dry Eyes ??? LANTUS SOLOSTAR pen INJECT 8 UNITS SUBCUTANEOUSLY EVERY DAY IN THE MORNING ??? latanoprost (XALATAN) 0.005 % ophthalmic solution Instill 1 drop into both eyes at bedtime ??? levothyroxine (SYNTHROID) 25 MCG tablet Take 25 mcg by mouth daily before breakfast ??? 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 ??? menthol-zinc oxide (CALMOSEPTINE) 0.44-20.6 % ointment Apply to affected area as needed for Other ??? metOLazone (ZAROXOLYN) 2.5 MG tablet Take 2.5 mg by mouth Take 1 tab twice a week on Friday andThursday ??? multivitamin with iron (ONE A DAY WITH IRON) tablet Take 1 Tab by mouth once daily. ??? nystatin (MYCOSTATIN) 807864 UNIT/GM powder Apply to affected area 2 times daily 60 g 0 ??? nystatin-triamcinolone (MYCOLOG) 204931-0.1 UNIT/GM-% cream Apply to affected area 2 times daily 30 g 0 ??? polyethyl glycol-propyl glycol (SYSTANE) 0.4-0.3 % ophth solution Instill 1 drop into both eyesonce as needed ??? potassium chloride ER (KLOR-CON) 20 MEQ [...] verapamil SR 24hr (VERELAN) 120 MG capsule TAKE 1 CAPSULE (120 MG TOTAL) BY MOUTH NIGHTLY ??? vitamin D3 (CHOLECALCIFEROL) 25 MCG (1000 UNITS) tablet Take 1,000 Units by mouth once daily ??? Water For Irrigation, Sterile 60 mL by Irrigation route once daily as needed (catheter not draining) 500 mL 3 Allergies Allergen Reactions ??? Advair Diskus YEAS INFECTION ??? Aricept [Donepezil] Other I dont remember ??? Diltiazem Swelling ??? Metformin Diarrhea ??? Black Pepper [Piper [place]um] Unknown ??? Fluticasone Diarrhea ??? Salmeterol Diarrhea ??? Sotalol Other Hair loss PCP: Theresa Camargo MD (Above may be pending completion) VS: BP 138/71 Pulse 88 Temp 97.8 ??F (36.6 ??C) (Oral) Resp 18 Ht 1.651 m (5' 5 ) Wt 77.1 kg (170 lb) BMI 28.29 kg/m2 Pertinent Physical Findings: Constitutional: vitals , WDWN Head: Head normocephalic, atraumatic Eyes: conjunctiva clear ENT: no rhinorrhea Neck: neck supple, no nuchal rigidity Resp: respirations even and unlabored, lungs clear bilaterally CV: Heart RRR, no m/c/r/g Abd: nondistended Skin: warm, dry Neuro: A&o x 3, CN 2-12 grossly intact bilat Psych: Normal affect MSK: TTP over anterior hip. nvl intact. No significant edema. No calf tenderness. MDM: I have reviewed all lab and imaging resulted ordered during this visit and available at the time ofthis note. Triage notes and available nursing notes reviewed. Previous medical record reviewed whenavailable. Management options include but not limited to: physical exam, laboratory testing, discussion with other providers. Plan: labs, imaging documented in this encounter Miscellaneous Notes * Coding Query - Teri Espana MD - 09/18/2020 8:43 AM CDT DOCUMENTATION CLARIFICATION REQUEST TO: Dr. Mccartney FROM: Sahra Dorsey RN BSN CDS Email: [email or web address] Please document/clarify the present on admission status for bilateral buttock pressure ulcers - Bilateral buttock pressure ulcers, POA - other explanation (please specify) - unable to determine The medical record reflects the following clinical evidence: Clinical Indicators: Nursing doc flow sheet: 09/15 Wound/skin note: Pressure ulcer buttock medial: Assessment Date/Assessment Time: 09/15/20 at 2318; Wound bed assessment: Deep pink; Pearly pink; Exudate description: none; Wound margin: undefined edges Risk Factor(s): decreased mobility, left hip pain Treatment: frequent repositioning, moisture barrier cream, MANAGER OF DIGITAL 12 mattress Please document your clinical opinion in the progress notes and discharge summary including the definitive and/or presumptive diagnosis, (suspected or probable), related to the above clinical findings. Please include clinical findings supporting your diagnosis. PHYSICIAN CLARIFICATION OF PATIENT DIAGNOSIS/PROCEDURE (Select edit then F2 to Respond) - Bilateral buttock pressure ulcers, POA * ACP (Advance Care Planning) - Elieser Mccartney MD - 09/15/2020 10:41 AM CDT Hospitalist Advanced Care Planning Note Patient name: Loc Leon Date of : 1940 Date of admission: 09/14/2020 Attending provider: Elieser Mccartney MD Date of discussion: 09/15/2020 Background: Loc Leon is a 79 year old female who is admitted with. Active diagnoses: Active Problems: Left hip pain Ambulatory dysfunction Patient has chronic medical issues that place her at risk for signficant morbidity and mortality A goals of care conversation is warranted. Person(s) present and participating in discussion: Discussed with: Patient Discussion: Current diagnosis and treatment plan discussed and questions answered. Spoke about codestatus and went over options. The patient would like to be full code . Discussed advanced directives as well. She previously completed one Summary/Recommendations: Full code Time spent: Total time spent face to face in education and discussion related to advanced care plannin minutes These active diagnoses are of sufficient risk that focused discussion on advance care planning is indicated in order to allow the patient and/or family to consider personal goals of care; and, if situations arise that prevent the ability to personally provide input, to ensure appropriate representation of their personal desires through documentation or informed surrogate decision makers. Elieser Mccartney MD 09/15/2020 10:41 AM documented in this encounter Plan of Treatment Not on file documented as of this encounter Goals Goal Patient Goal Type Associated Problems Recent Progress Patient-Stated? 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 8:09 AM LEASING REPRESENTATIVE) No Alisa Jaramillo HEMOGLOBIN A1C < 7.0 Result Component 5.4( 12:00 AM CDT) No Alisa Jaramillo documented as of this encounter Procedures Procedure Name Priority Date/Time Associated Diagnosis Comments GLUCOSE - POINT OF CARE Routine 09/20/2020 4:51 PM CDT GLUCOSE - POINT OF CARE Routine 09/20/2020 12:56 PM CDT GLUCOSE - POINT OF CARE Routine 09/20/2020 8:14 AM CDT CBC W AUTO DIFFERENTIAL Routine 09/20/2020 5:26 AM CDT TIA (transient ischemic attack) BASIC METABOLIC PANEL (CALCIUM TOTAL) Routine 09/20/2020 5:26 AM CDT TIA (transient ischemic attack) GLUCOSE - POINT OF CARE Routine 09/19/2020 5:24 PM CDT GLUCOSE - POINT OF CARE Routine 09/19/2020 12:56 PM CDT GLUCOSE - POINT OF CARE Routine 09/19/2020 8:31 AM CDT CBC W AUTO DIFFERENTIAL Routine 09/19/2020 4:19 AM CDT TIA (transient ischemic attack) BASIC METABOLIC PANEL (CALCIUM TOTAL) Routine 09/19/2020 4:19 AM CDT TIA (transient ischemic attack) GLUCOSE - POINT OF CARE Routine 09/18/2020 8:51 PM CDT GLUCOSE - POINT OF CARE Routine 09/18/2020 5:09 PM CDT GLUCOSE - POINT OF CARE Routine 09/18/2020 12:37 PM CDT GLUCOSE - POINT OF CARE Routine 09/18/2020 8:06 AM CDT CBC W AUTO DIFFERENTIAL Routine 09/18/2020 4:05 AM CDT TIA (transient ischemic attack) BASIC METABOLIC PANEL (CALCIUM TOTAL) Routine 09/18/2020 4:05 AM CDT TIA (transient ischemic attack) GLUCOSE - POINT OF CARE Routine 09/17/2020 10:01 PM CDT GLUCOSE - POINT OF CARE Routine 09/17/2020 5:51 PM CDT GLUCOSE - POINT OF CARE Routine 09/17/2020 2:15 PM CDT MRI HIP LEFT WO CONTRAST Routine 09/17/2020 1:56 PM CDT Left hip pain GLUCOSE - POINT OF CARE Routine 09/17/2020 8:28 AM CDT CBC W AUTO DIFFERENTIAL Routine 09/17/2020 4:18 AM CDT TIA (transient ischemic attack) BASIC METABOLIC PANEL (CALCIUM TOTAL) Routine 09/17/2020 4:18 AM CDT TIA (transient ischemic attack) GLUCOSE - POINT OF CARE Routine 09/16/2020 10:43 PM CDT GLUCOSE - POINT OF CARE Routine 09/16/2020 5:43 PM CDT GLUCOSE - POINT OF CARE Routine 09/16/2020 12:[address] LUMBAR SPINE WO CONTRAST Routine 09/16/2020 9:56 AM CDT Left hip pain GLUCOSE - POINT OF CARE Routine 09/16/2020 8:19 AM CDT CBC W AUTO DIFFERENTIAL Routine 09/16/2020 4:17 AM CDT TIA (transient ischemic attack) BASIC METABOLIC PANEL (CALCIUM TOTAL) Routine 09/16/2020 4:17 AM CDT TIA (transient ischemic attack) GLUCOSE - POINT OF CARE Routine 09/15/2020 7:48 PM CDT GLUCOSE - POINT OF CARE Routine 09/15/2020 4:06 PM CDT GLUCOSE - POINT OF CARE Routine 09/15/2020 11:39 AM CDT GLUCOSE - POINT OF CARE Routine 09/15/2020 7:40 AM CDT XR CHEST 1VW PORTABLE Routine 09/15/2020 6:12 AM CDT 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, unspecified vessel or lesion type HEMOGLOBIN A1C Routine 09/15/2020 3:37 AM CDT 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, unspecified vessel or lesion type CBC W AUTO DIFFERENTIAL Routine 09/15/2020 3:37 AM CDT TIA (transient ischemic attack) BASIC METABOLIC PANEL (CALCIUM TOTAL) Routine 09/15/2020 3:37 AM CDT TIA (transient ischemic attack) GLUCOSE - POINT OF CARE Routine 09/14/2020 11:01 PM CDT XR PELVIS W LEFT HIP 2VW STAT 09/14/2020 5:06 PM CDT Left hip pain VAS LEFT VENOUS DUPLEX LE STAT 09/14/2020 4:36 PM CDT Left hip pain CBC W AUTO DIFFERENTIAL STAT 09/14/2020 3:53 PM CDT COMPREHENSIVE METABOLIC PANEL STAT 09/14/2020 3:53 PM CDT documented in this encounter Results * (ABNORMAL) GLUCOSE - POINT OF CARE (09/20/2020 4:51 PM CDT) Pathologist [facility] Glucose WB/POC 254(H) 70 - 106 mg/dL 09/20/2020 9:27 PM CDT [facility] Specimen Type Arterial/C apillary 09/20/2020 9:27 PM CDT [facility] Blood BLOOD SPECIMEN / Unknown 09/20/2020 4:51 PM CDT 09/20/2020 9:27 PM CDT Allen Navarro MD LAB - POINT OF CARE ORDERABLES Performing Organization Address City/State/[facility] Co de Phone Number [facility] [address] [place] [address] * (ABNORMAL) GLUCOSE - POINT OF CARE (09/20/2020 12:56 PM CDT) Glucose WB/POC 207(H) 70 - 106 mg/dL 09/20/2020 1:08 PM CDT [facility] Specimen Type Arterial/C apillary 09/20/2020 1:08 PM CDT [facility] Blood BLOOD SPECIMEN / Unknown 09/20/2020 12:56 PM CDT 09/20/2020 1:08 PM CDT Allen Navarro MD LAB - POINT OF CARE ORDERABLES Performing Organization Address [facility] de Phone Number [facility] [address] [place] [phone] * (ABNORMAL) GLUCOSE - POINT OF CARE (09/20/2020 8:14 AM CDT) Glucose WB/POC 185(H) 70 - 106 mg/dL 09/20/2020 8:35 AM CDT [facility] Specimen Type Arterial/C apillary 09/20/2020 8:35 AM CDT [facility] Blood BLOOD SPECIMEN / Unknown 09/20/2020 8:14 AM CDT 09/20/2020 8:35 AM CDT Allen Navarro MD LAB - POINT OF CARE ORDERABLES Performing Organization Address [facility] Co de Phone Number [facility] [phone] [place] [phone] * (ABNORMAL) CBC W AUTO DIFFERENTIAL (09/20/2020 5:26 AM CDT) WBC 11.8(H) 4.4 - 10.7 x10E9/L 09/20/2020 6:18 AM CDT [facility] WBC Corrected 09/20/2020 6:18 AM CDT [facility] RBC 4.60 3.80 - 5.20 x10E12/L 09/20/2020 6:18 AM CDT [facility] Hemoglobin 11.6(L) 12.0 - 15.6 gm/dL 09/20/2020 6:18 AM CDT [facility] Hematocrit 37.1 35.9 - 45.5 % 09/20/2020 6:18 AM CDT [facility] MCV 80.7 80.7 - 98.3 fl 09/20/2020 6:18 AM CDT [facility] MCH 25.2(L) 26.7 - 34.0 pg 09/20/2020 6:18 AM CDT [facility] MCHC 31.3 30.8 - 35.9 gm/dL 09/20/2020 6:18 AM CDT [facility] Platelet Count 319 153 - 416 x10E9/L 09/20/2020 6:18 AM CDT [facility] RDW-CV 15.9(H) 12.1 - 14.9 % 09/20/2020 6:18 AM CDT [facility] MPV 10.5 9.4 - 12.9 fl 09/20/2020 6:18 AM CDT [facility] Neutrophils % 64.7 44.0 - 73.0 % 09/20/2020 6:18 AM CDT [facility] Lymphocytes % 14.2(L) 20.0 - 43.0 % 09/20/2020 6:18 AM CDT [facility] Monocytes % 15.4(H) 5.0 - 13.0 % 09/20/2020 6:18 AM CDT [facility] Eosinophils % 3.3 0.0 - 6.0 % 09/20/2020 6:18 AM CDT [facility] Basophils % 0.9 0.0 - 2.0 % 09/20/2020 6:18 AM CDT [facility] Immature Granulocytes 1.5(H) 0 - 1 % 09/20/2020 6:18 AM CDT [facility] Neutrophil Absolute 7.61(H) 2.01 - 7.14 x10E9/L 09/20/2020 6:18 AM CDT [facility] Lymphocytes Absolute 1.68 1.07 - 3.94 x10E9/L 09/20/2020 6:18 AM CDT [facility] Monocytes Absolute 1.82(H) 0.26 - 1.07 x10E9/L 09/20/2020 6:18 AM CDT [facility] Eosinophils Absolute 0.39 0 - 0.47 x10E9/L 09/20/2020 6:18 AM CDT [facility] Basophils Absolute 0.11(H) 0 - 0.08 x10E9/L 09/20/2020 6:18 AM CDT [facility] Immature Granulocytes Absolute 0.18(H) 0.00 - 0.06 x10E9/L 09/20/2020 6:18 AM CDT [facility] nRBC Auto 0 /100 WBC 09/20/2020 6:18 AM CDT [facility] Blood BLOOD SPECIMEN / Unknown Venipuncture / Unknown 09/20/2020 5:26 AM CDT 09/20/2020 6:06 AM CDT Mahad Walsh MD LAB - HEMATOLOGY ORD ERABLES [facility] [address] [place] [address] * (ABNORMAL) BASIC METABOLIC PANEL (CALCIUM TOTAL) (09/20/2020 5:26 AM CDT) Glucose 164(H) 70 - 105 mg/dL 09/20/2020 6:35 AM CDT [facility] Sodium 136 136 - 145 mmol/L 09/20/2020 6:35 AM CDT [facility] Potassium 3.4(L) 3.5 - 5.1 mmol/L 09/20/2020 6:35 AM CDT [facility] Chloride 103 98 - 107 mmol/L 09/20/2020 6:35 AM CDT [facility] CO2 23 23 - 31 mmol/L 09/20/2020 6:35 AM CDT [facility] Calcium 9.6 8.4 - 10.4 mg/dL 09/20/2020 6:35 AM CDT [facility] Anion Gap 10 8 - 18 mmol/L 09/20/2020 6:35 AM CDT [facility] Comment:Attention clinician: Reference Range change. BUN 23(H) 9.8 - 20.1 mg/dL 09/20/2020 6:35 AM CDT [facility] Creatinine 0.88 0.57 - 1.11 mg/dL 09/20/2020 6:35 AM CDT [facility] eGFR by MDRD >60 mL/min/1.7 3m2 09/20/2020 6:35 AM CDT [facility] eGFR by MDRD >60 mL/min/1.7 3m2 09/20/2020 6:35 AM CDT [facility] Blood BLOOD SPECIMEN / Unknown Venipuncture / Unknown 09/20/2020 5:26 AM CDT 09/20/2020 6:06 AM CDT Mahad Walsh MD LAB - CHEMISTRY ROSALINAE RICHIE Performing Organization Address City/[facility] Co de Phone Number [facility] [address] [place], [place] [phone] * (ABNORMAL) GLUCOSE - POINT OF CARE (09/19/2020 5:24 PM CDT) Glucose WB/POC 216(H) 70 - 106 mg/dL 09/19/2020 5:25 PM CDT [facility] Specimen Type Arterial/C apillary 09/19/2020 5:25 PM CDT [facility] Blood BLOOD SPECIMEN / Unknown 09/19/2020 5:24 PM CDT 09/19/2020 5:25 PM CDT Allen Navarro MD LAB - POINT OF CARE ORDERABLES Performing Organization Address City/[facility]/ZIP Co de Phone Number [facility] [address] [place], [place] [phone] * (ABNORMAL) GLUCOSE - POINT OF CARE (09/19/2020 12:56 PM CDT) Glucose WB/POC 245(H) 70 - 106 mg/dL 09/19/2020 5:25 PM CDT [facility] Specimen Type Arterial/C apillary 09/19/2020 5:25 PM CDT [facility] Blood BLOOD SPECIMEN / Unknown 09/19/2020 12:56 PM CDT 09/19/2020 5:24 PM CDT Allen Navarro MD LAB - POINT OF CARE ORDERABLES Performing Organization Address [facility] Co de Phone Number [facility] [address] [place] [phone] * (ABNORMAL) GLUCOSE - POINT OF CARE (09/19/2020 8:31 AM CDT) [facility] Glucose WB/POC 159(H) 70 - 106 mg/dL 09/20/2020 10:43 AM CDT [facility] Specimen Type Arterial/C apillary 09/20/2020 10:43 AM CDT [facility] Blood BLOOD SPECIMEN / Unknown 09/19/2020 8:31 AM CDT 09/20/2020 10:43 AM CDT Allen Navarro MD LAB - POINT OF CARE ORDERABLES Performing Organization Address [facility] de Phone Number [facility] [address] [place] [phone] * (ABNORMAL) CBC W AUTO DIFFERENTIAL (09/19/2020 4:19 AM CDT) [facility] WBC 10.3 4.4 - 10.7 x10E9/L 09/19/2020 5:35 AM CDT [facility] WBC Corrected 09/19/2020 5:35 AM CDT [facility] RBC 4.84 3.80 - 5.20 x10E12/L 09/19/2020 5:35 AM CDT [facility] Hemoglobin 12.1 12.0 - 15.6 gm/dL 09/19/2020 5:35 AM CDT [facility] Hematocrit 39.2 35.9 - 45.5 % 09/19/2020 5:35 AM CDT [facility] MCV 81.0 80.7 - 98.3 fl 09/19/2020 5:35 AM CDT [facility] MCH 25.0(L) 26.7 - 34.0 pg 09/19/2020 5:35 AM CDT [facility] MCHC 30.9 30.8 - 35.9 gm/dL 09/19/2020 5:35 AM CDT [facility] Platelet Count 308 153 - 416 x10E9/L 09/19/2020 5:35 AM CDT [facility] RDW-CV 16.2(H) 12.1 - 14.9 % 09/19/2020 5:35 AM CDT [facility] MPV 10.7 9.4 - 12.9 fl 09/19/2020 5:35 AM CDT [facility] Neutrophils % 62.0 44.0 - 73.0 % 09/19/2020 5:35 AM CDT [facility] Lymphocytes % 15.5(L) 20.0 - 43.0 % 09/19/2020 5:35 AM CDT [facility] Monocytes % 17.1(H) 5.0 - 13.0 % 09/19/2020 5:35 AM CDT [facility] Eosinophils % 3.5 0.0 - 6.0 % 09/19/2020 5:35 AM CDT [facility] Basophils % 0.8 0.0 - 2.0 % 09/19/2020 5:35 AM CDT [facility] Immature Granulocytes 1.1(H) 0 - 1 % 09/19/2020 5:35 AM CDT [facility] Neutrophil Absolute 6.41 2.01 - 7.14 x10E9/L 09/19/2020 5:35 AM CDT [facility] Lymphocytes Absolute 1.60 1.07 - 3.94 x10E9/L 09/19/2020 5:35 AM CDT [facility] Monocytes Absolute 1.77(H) 0.26 - 1.07 x10E9/L 09/19/2020 5:35 AM CDT [facility] Eosinophils Absolute 0.36 0 - 0.47 x10E9/L 09/19/2020 5:35 AM CDT [facility] Basophils Absolute 0.08 0 - 0.08 x10E9/L 09/19/2020 5:35 AM CDT [facility] Immature Granulocytes Absolute 0.11(H) 0.00 - 0.06 x10E9/L 09/19/2020 5:35 AM CDT [facility] nRBC Auto 0 /100 WBC 09/19/2020 5:35 AM CDT [facility] Blood BLOOD SPECIMEN / Unknown Venipuncture / Unknown 09/19/2020 4:19 AM CDT 09/19/2020 5:22 AM CDT Mahad Walsh MD LAB - HEMATOLOGY ORD ERABLES [facility] [address] [place] [address] * (ABNORMAL) BASIC METABOLIC PANEL (CALCIUM TOTAL) (09/19/2020 4:19 AM CDT) Glucose 171(H) 70 - 105 mg/dL 09/19/2020 5:52 AM CDT [facility] Sodium 135(L) 136 - 145 mmol/L 09/19/2020 5:52 AM CDT [facility] Potassium 3.5 3.5 - 5.1 mmol/L 09/19/2020 5:52 AM CDT [facility] Chloride 103 98 - 107 mmol/L 09/19/2020 5:52 AM CDT [facility] CO2 22(L) 23 - 31 mmol/L 09/19/2020 5:52 AM CDT [facility] Calcium 9.8 8.4 - 10.4 mg/dL 09/19/2020 5:52 AM CDT [facility] Anion Gap 10 8 - 18 mmol/L 09/19/2020 5:52 AM CDT [facility] Comment:Attention clinician: Reference Range change. BUN 25(H) 9.8 - 20.1 mg/dL 09/19/2020 5:52 AM CDT [facility] Creatinine 0.80 0.57 - 1.11 mg/dL 09/19/2020 5:52 AM CDT [facility] eGFR by MDRD >60 mL/min/1.7 3m2 09/19/2020 5:52 AM CDT [facility] eGFR by MDRD >60 mL/min/1.7 3m2 09/19/2020 5:52 AM CDT [facility] Blood BLOOD SPECIMEN / Unknown Venipuncture / Unknown 09/19/2020 4:19 AM CDT 09/19/2020 5:22 AM CDT Mahad Walsh MD LAB - CHEMISTRY ROWAN QUIROZ Performing Organization Address City/[facility]/ZIP Co de Phone Number [facility] [address] [place] [phone] * (ABNORMAL) GLUCOSE - POINT OF CARE (09/18/2020 8:51 PM CDT) Glucose WB/POC 193(H) 70 - 106 mg/dL 09/19/2020 4:24 AM CDT [facility] Specimen Type Arterial/C apillary 09/19/2020 4:24 AM CDT [facility] Blood BLOOD SPECIMEN / Unknown 09/18/2020 8:51 PM CDT 09/19/2020 4:24 AM CDT Teri Espana MD LAB - POINT OF CARE ORDERABLES Performing Organization Address [facility] Co de Phone Number [facility] [address] [place] [phone] * (ABNORMAL) GLUCOSE - POINT OF CARE (09/18/2020 5:09 PM CDT) Glucose WB/POC 169(H) 70 - 106 mg/dL 09/18/2020 5:13 PM CDT [facility] Specimen Type Arterial/C apillary 09/18/2020 5:13 PM CDT [facility] Blood BLOOD SPECIMEN / Unknown 09/18/2020 5:09 PM CDT 09/18/2020 5:13 PM CDT Teri Espana MD LAB - POINT OF CARE ORDERABLES Performing Organization Address City/[facility]/ZIP Co de Phone Number [facility] [phone] [place] [address] [phone] * (ABNORMAL) GLUCOSE - POINT OF CARE (09/18/2020 12:37 PM CDT) Glucose WB/POC 184(H) 70 - 106 mg/dL 09/18/2020 12:38 PM CDT [facility] Specimen Type Arterial/C apillary 09/18/2020 12:38 PM CDT [facility] Blood BLOOD SPECIMEN / Unknown 09/18/2020 12:37 PM CDT 09/18/2020 12:37 PM CDT Teri Espana MD LAB - POINT OF CARE ORDERABLES Performing Organization Address [facility] Co de Phone Number [facility] [phone] [place] [phone] * (ABNORMAL) GLUCOSE - POINT OF CARE (09/18/2020 8:06 AM CDT) Pathologist [facility] [place] Glucose WB/POC 141(H) 70 - 106 mg/dL 09/18/2020 8:12 AM CDT [facility] Specimen Type Arterial/C apillary 09/18/2020 8:12 AM CDT [facility] Blood BLOOD SPECIMEN / Unknown 09/18/2020 8:06 AM CDT 09/18/2020 8:12 AM CDT Elieser Mccartney MD LAB - POINT OF CARE ORDERABLES Performing Organization Address [facility] Co de Phone Number [facility] [address] [place] [phone] * (ABNORMAL) CBC W AUTO DIFFERENTIAL (09/18/2020 4:05 AM CDT) WBC 10.8(H) 4.4 - 10.7 x10E9/L 09/18/2020 5:09 AM CDT [facility] WBC Corrected 09/18/2020 5:09 AM CDT [facility] RBC 4.75 3.80 - 5.20 x10E12/L 09/18/2020 5:09 AM CDT [facility] Hemoglobin 12.2 12.0 - 15.6 gm/dL 09/18/2020 5:09 AM CDT [facility] Hematocrit 38.6 35.9 - 45.5 % 09/18/2020 5:09 AM CDT [facility] MCV 81.3 80.7 - 98.3 fl 09/18/2020 5:09 AM CDT [facility] MCH 25.7(L) 26.7 - 34.0 pg 09/18/2020 5:09 AM CDT [facility] MCHC 31.6 30.8 - 35.9 gm/dL 09/18/2020 5:09 AM CDT [facility] Platelet Count 301 153 - 416 x10E9/L 09/18/2020 5:09 AM CDT [facility] RDW-CV 16.2(H) 12.1 - 14.9 % 09/18/2020 5:09 AM CDT [facility] MPV 10.4 9.4 - 12.9 fl 09/18/2020 5:09 AM CDT [facility] Neutrophils % 63.9 44.0 - 73.0 % 09/18/2020 5:09 AM CDT [facility] Lymphocytes % 13.9(L) 20.0 - 43.0 % 09/18/2020 5:09 AM CDT [facility] Monocytes % 17.2(H) 5.0 - 13.0 % 09/18/2020 5:09 AM CDT [facility] Eosinophils % 3.4 0.0 - 6.0 % 09/18/2020 5:09 AM CDT [facility] Basophils % 0.6 0.0 - 2.0 % 09/18/2020 5:09 AM CDT [facility] Immature Granulocytes 1.0 0 - 1 % 09/18/2020 5:09 AM CDT [facility] Neutrophil Absolute 6.88 2.01 - 7.14 x10E9/L 09/18/2020 5:09 AM CDT [facility] Lymphocytes Absolute 1.50 1.07 - 3.94 x10E9/L 09/18/2020 5:09 AM CDT [facility] Monocytes Absolute 1.85(H) 0.26 - 1.07 x10E9/L 09/18/2020 5:09 AM CDT [facility] Eosinophils Absolute 0.37 0 - 0.47 x10E9/L 09/18/2020 5:09 AM CDT [facility] Basophils Absolute 0.06 0 - 0.08 x10E9/L 09/18/2020 5:09 AM CDT [facility] Immature Granulocytes Absolute 0.11(H) 0.00 - 0.06 x10E9/L 09/18/2020 5:09 AM CDT [facility] nRBC Auto 0 /100 WBC 09/18/2020 5:09 AM CDT [facility] Blood BLOOD SPECIMEN / Unknown Venipuncture / Unknown 09/18/2020 4:05 AM CDT 09/18/2020 4:40 AM CDT Mahad Walsh MD LAB - HEMATOLOGY ORD ERABLES [facility] [address] [place] [address] * (ABNORMAL) BASIC METABOLIC PANEL (CALCIUM TOTAL) (09/18/2020 4:05 AM CDT) [facility] Glucose 160(H) 70 - 105 mg/dL 09/18/2020 5:23 AM CDT [facility] Sodium 134(L) 136 - 145 mmol/L 09/18/2020 5:23 AM CDT [facility] Potassium 3.5 3.5 - 5.1 mmol/L 09/18/2020 5:23 AM CDT [facility] Chloride 101 98 - 107 mmol/L 09/18/2020 5:23 AM CDT [facility] CO2 23 23 - 31 mmol/L 09/18/2020 5:23 AM CDT [facility] Calcium 10.2 8.4 - 10.4 mg/dL 09/18/2020 5:23 AM CDT [facility] Anion Gap 10 8 - 18 mmol/L 09/18/2020 5:23 AM CDT [facility] Comment:Attention clinician: Reference Range change. BUN 28(H) 9.8 - 20.1 mg/dL 09/18/2020 5:23 AM CDT [facility] Creatinine 0.84 0.57 - 1.11 mg/dL 09/18/2020 5:23 AM CDT [facility] eGFR by MDRD >60 mL/min/1.7 3m2 09/18/2020 5:23 AM CDT [facility] eGFR by MDRD >60 mL/min/1.7 3m2 09/18/2020 5:23 AM CDT [facility] Blood BLOOD SPECIMEN / Unknown Venipuncture / Unknown 09/18/2020 4:05 AM CDT 09/18/2020 4:40 AM CDT Mahad Walsh MD LAB - CHEMISTRY ROWAN QUIROZ Performing Organization Address [facility] Co de Phone Number [facility] [address] [place] [address] * (ABNORMAL) GLUCOSE - POINT OF CARE (09/17/2020 10:01 PM CDT) Glucose WB/POC 201(H) 70 - 106 mg/dL 09/18/2020 8:17 AM CDT [facility] Specimen Type Arterial/C apillary 09/18/2020 8:17 AM CDT [facility] Blood BLOOD SPECIMEN / Unknown 09/17/2020 10:01 PM CDT 09/18/2020 8:17 AM CDT Elieser Mccartney MD LAB - POINT OF CARE ORDERABLES Performing Organization Address [facility] de Phone Number [facility] [phone] [place] [phone] * (ABNORMAL) GLUCOSE - POINT OF CARE (09/17/2020 5:51 PM CDT) Glucose WB/POC 200(H) 70 - 106 mg/dL 09/17/2020 5:57 PM CDT [facility] Specimen Type Arterial/C apillary 09/17/2020 5:57 PM CDT [facility] Blood BLOOD SPECIMEN / Unknown 09/17/2020 5:51 PM CDT 09/17/2020 5:57 PM CDT Elieser Mccartney MD LAB - POINT OF CARE ORDERABLES Performing Organization Address [facility] Co de Phone Number [facility] [phone] [place] [phone] * (ABNORMAL) GLUCOSE - POINT OF CARE (09/17/2020 2:15 PM CDT) Glucose WB/POC 171(H) 70 - 106 mg/dL 09/17/2020 2:16 PM CDT [facility] Specimen Type Arterial/C apillary 09/17/2020 2:16 PM CDT [facility] Blood BLOOD SPECIMEN / Unknown 09/17/2020 2:15 PM CDT 09/17/2020 2:16 PM CDT Elieser Mccartney MD LAB - POINT OF CARE ORDERABLES [facility] [address] [place] [address] * MRI HIP LEFT WO CONTRAST (09/17/2020 [...] HIP. NO ACUTE OSSEOUS ABNORMALITY. Edited by Kera Rodgers on 09/18/2020 9:45 AM *Reading Radiologist: [...] within normal limits. Mild free pelvic fluid. Olivas catheter decompresses the bladder. Moderate stool-filled distention [...] within normal limits. Mild free pelvic fluid. Olivas catheter decompresses the bladder. Moderate stool-filled distention [...] HIP. NO ACUTE OSSEOUS ABNORMALITY. Edited by Kera Rodgers on 09/18/2020 9:45 AM *Reading Radiologist: Shakira García on 09/18/2020 at 9:47 AM Lavelle Carrera IV, MD MR ORDERABLES * (ABNORMAL) GLUCOSE - POINT OF CARE (09/17/2020 8:28 AM CDT) [facility] Glucose WB/POC 151(H) 70 - 106 mg/dL 09/17/2020 8:29 AM CDT [facility] Specimen Type Arterial/C apillary 09/17/2020 8:29 AM CDT [facility] Blood BLOOD SPECIMEN / Unknown 09/17/2020 8:28 AM CDT 09/17/2020 8:29 AM CDT Elieser Mccartney MD LAB - POINT OF CARE ORDERABLES [facility] [address] [place] [address] * (ABNORMAL) CBC W AUTO DIFFERENTIAL (09/17/2020 4:18 AM CDT) [facility] WBC 11.7(H) 4.4 - 10.7 x10E9/L 09/17/2020 4:40 AM CDT [facility] WBC Corrected 09/17/2020 4:40 AM CDT [facility] RBC 4.92 3.80 - 5.20 x10E12/L 09/17/2020 4:40 AM CDT [facility] Hemoglobin 12.5 12.0 - 15.6 gm/dL 09/17/2020 4:40 AM CDT [facility] Hematocrit 40.0 35.9 - 45.5 % 09/17/2020 4:40 AM CDT [facility] MCV 81.3 80.7 - 98.3 fl 09/17/2020 4:40 AM CDT [facility] MCH 25.4(L) 26.7 - 34.0 pg 09/17/2020 4:40 AM CDT [facility] MCHC 31.3 30.8 - 35.9 gm/dL 09/17/2020 4:40 AM CDT [facility] Platelet Count 296 153 - 416 x10E9/L 09/17/2020 4:40 AM CDT [facility] RDW-CV 16.3(H) 12.1 - 14.9 % 09/17/2020 4:40 AM CDT [facility] MPV 10.3 9.4 - 12.9 fl 09/17/2020 4:40 AM CDT [facility] Neutrophils % 65.5 44.0 - 73.0 % 09/17/2020 4:40 AM CDT [facility] Lymphocytes % 12.5(L) 20.0 - 43.0 % 09/17/2020 4:40 AM CDT [facility] Monocytes % 17.7(H) 5.0 - 13.0 % 09/17/2020 4:40 AM CDT [facility] Eosinophils % 2.7 0.0 - 6.0 % 09/17/2020 4:40 AM CDT [facility] Basophils % 0.7 0.0 - 2.0 % 09/17/2020 4:40 AM CDT [facility] Immature Granulocytes 0.9 0 - 1 % 09/17/2020 4:40 AM CDT [facility] Neutrophil Absolute 7.63(H) 2.01 - 7.14 x10E9/L 09/17/2020 4:40 AM CDT [facility] Lymphocytes Absolute 1.46 1.07 - 3.94 x10E9/L 09/17/2020 4:40 AM CDT [facility] Monocytes Absolute 2.06(H) 0.26 - 1.07 x10E9/L 09/17/2020 4:40 AM CDT [facility] Eosinophils Absolute 0.32 0 - 0.47 x10E9/L 09/17/2020 4:40 AM CDT [facility] Basophils Absolute 0.08 0 - 0.08 x10E9/L 09/17/2020 4:40 AM CDT [facility] Immature Granulocytes Absolute 0.11(H) 0.00 - 0.06 x10E9/L 09/17/2020 4:40 AM CDT [facility] nRBC Auto 0 /100 WBC 09/17/2020 4:40 AM CDT [facility] Blood BLOOD SPECIMEN / Unknown Venipuncture / Unknown 09/17/2020 4:18 AM CDT 09/17/2020 4:35 AM CDT Mahad Walsh MD LAB - HEMATOLOGY ORD ERABLES [facility] [address] [place] [address] * (ABNORMAL) BASIC METABOLIC PANEL (CALCIUM TOTAL) (09/17/2020 4:18 AM CDT) Glucose 164(H) 70 - 105 mg/dL 09/17/2020 5:09 AM CDT [facility] Sodium 134(L) 136 - 145 mmol/L 09/17/2020 5:09 AM CDT [facility] Potassium 3.8 3.5 - 5.1 mmol/L 09/17/2020 5:09 AM CDT [facility] Chloride 101 98 - 107 mmol/L 09/17/2020 5:09 AM CDT [facility] CO2 23 23 - 31 mmol/L 09/17/2020 5:09 AM CDT [facility] Calcium 10.0 8.4 - 10.4 mg/dL 09/17/2020 5:09 AM CDT [facility] Anion Gap 10 8 - 18 mmol/L 09/17/2020 5:09 AM CDT [facility] Comment:Attention clinician: Reference Range change. BUN 29(H) 9.8 - 20.1 mg/dL 09/17/2020 5:09 AM CDT [facility] Creatinine 0.87 0.57 - 1.11 mg/dL 09/17/2020 5:09 AM CDT [facility] eGFR by MDRD >60 mL/min/1.7 3m2 09/17/2020 5:09 AM CDT [facility] eGFR by MDRD >60 mL/min/1.7 3m2 09/17/2020 5:09 AM CDT [facility] Blood BLOOD SPECIMEN / Unknown Venipuncture / Unknown 09/17/2020 4:18 AM CDT 09/17/2020 4:35 AM CDT Mahad Walsh MD LAB - CHEMISTRY ROWAN QUIROZ Performing Organization Address [facility] Co de Phone Number [facility] [address] [place] [address] * (ABNORMAL) GLUCOSE - POINT OF CARE (09/16/2020 10:43 PM CDT) Glucose WB/POC 162(H) 70 - 106 mg/dL 09/16/2020 10:44 PM CDT [facility] Specimen Type Arterial/C apillary 09/16/2020 10:44 PM CDT [facility] Blood BLOOD SPECIMEN / Unknown 09/16/2020 10:43 PM CDT 09/16/2020 10:44 PM CDT Elieser Mccartney MD LAB - POINT OF CARE ORDERABLES Performing Organization Address [facility] Co de Phone Number [facility] [address] [place] [address] * (ABNORMAL) GLUCOSE - POINT OF CARE (09/16/2020 5:43 PM CDT) Glucose WB/POC 159(H) 70 - 106 mg/dL 09/16/2020 5:47 PM CDT [facility] Specimen Type Arterial/C apillary 09/16/2020 5:47 PM CDT [facility] Blood BLOOD SPECIMEN / Unknown 09/16/2020 5:43 PM CDT 09/16/2020 5:47 PM CDT Elieser Mccartney MD LAB - POINT OF CARE ORDERABLES Performing Organization Address [facility] Co de Phone Number [facility] [address] [place] [address] * (ABNORMAL) GLUCOSE - POINT OF CARE (09/16/2020 12:43 PM CDT) Glucose WB/POC 166(H) 70 - 106 mg/dL 09/16/2020 12:43 PM CDT [facility] Specimen Type Arterial/C apillary 09/16/2020 12:43 PM CDT [facility] Blood BLOOD SPECIMEN / Unknown 09/16/2020 12:43 PM CDT 09/16/2020 12:43 PM CDT Elieser Mccartney MD LAB - POINT OF CARE ORDERABLES Performing Organization Address [facility] Co de Phone Number [facility] [phone] [place] [phone] * CT LUMBAR SPINE NON CONTRAST (09/16/2020 [...] AM Mahad Walsh MD CT ORDERABLES * (ABNORMAL) GLUCOSE - POINT OF CARE (09/16/2020 8:19 AM CDT) [facility] Glucose WB/POC 140(H) 70 - 106 mg/dL 09/16/2020 8:20 AM CDT [facility] Specimen Type Arterial/C apillary 09/16/2020 8:20 AM CDT [facility] Blood BLOOD SPECIMEN / Unknown 09/16/2020 8:19 AM CDT 09/16/2020 8:20 AM CDT Elieser Mccartney MD LAB - POINT OF CARE ORDERABLES [facility] [address] [place] [address] * (ABNORMAL) CBC W AUTO DIFFERENTIAL (09/16/2020 4:17 AM CDT) [facility] WBC 12.5(H) 4.4 - 10.7 x10E9/L 09/16/2020 4:36 AM CDT [facility] WBC Corrected 09/16/2020 4:36 AM CDT [facility] RBC 4.93 3.80 - 5.20 x10E12/L 09/16/2020 4:36 AM CDT [facility] Hemoglobin 12.5 12.0 - 15.6 gm/dL 09/16/2020 4:36 AM CDT [facility] Hematocrit 39.9 35.9 - 45.5 % 09/16/2020 4:36 AM CDT [facility] MCV 80.9 80.7 - 98.3 fl 09/16/2020 4:36 AM CDT [facility] MCH 25.4(L) 26.7 - 34.0 pg 09/16/2020 4:36 AM CDT [facility] MCHC 31.3 30.8 - 35.9 gm/dL 09/16/2020 4:36 AM CDT [facility] Platelet Count 319 153 - 416 x10E9/L 09/16/2020 4:36 AM CDT [facility] RDW-CV 16.8(H) 12.1 - 14.9 % 09/16/2020 4:36 AM CDT [facility] MPV 10.6 9.4 - 12.9 fl 09/16/2020 4:36 AM CDT [facility] Neutrophils % 65.6 44.0 - 73.0 % 09/16/2020 4:36 AM CDT [facility] Lymphocytes % 13.1(L) 20.0 - 43.0 % 09/16/2020 4:36 AM CDT [facility] Monocytes % 17.3(H) 5.0 - 13.0 % 09/16/2020 4:36 AM CDT [facility] Eosinophils % 2.6 0.0 - 6.0 % 09/16/2020 4:36 AM CDT [facility] Basophils % 0.4 0.0 - 2.0 % 09/16/2020 4:36 AM CDT [facility] Immature Granulocytes 1.0 0 - 1 % 09/16/2020 4:36 AM CDT [facility] Neutrophil Absolute 8.18(H) 2.01 - 7.14 x10E9/L 09/16/2020 4:36 AM CDT [facility] Lymphocytes Absolute 1.64 1.07 - 3.94 x10E9/L 09/16/2020 4:36 AM CDT [facility] Monocytes Absolute 2.16(H) 0.26 - 1.07 x10E9/L 09/16/2020 4:36 AM CDT [facility] Eosinophils Absolute 0.32 0 - 0.47 x10E9/L 09/16/2020 4:36 AM CDT [facility] Basophils Absolute 0.05 0 - 0.08 x10E9/L 09/16/2020 4:36 AM CDT [facility] Immature Granulocytes Absolute 0.13(H) 0.00 - 0.06 x10E9/L 09/16/2020 4:36 AM CDT [facility] nRBC Auto 0 /100 WBC 09/16/2020 4:36 AM CDT [facility] Blood BLOOD SPECIMEN / Unknown Venipuncture / Unknown 09/16/2020 4:17 AM CDT 09/16/2020 4:29 AM CDT Mahad Walsh MD LAB - HEMATOLOGY ORD ERABLES [facility] [address] [place] [address] * (ABNORMAL) BASIC METABOLIC PANEL (CALCIUM TOTAL) (09/16/2020 4:17 AM CDT) Glucose 138(H) 70 - 105 mg/dL 09/16/2020 5:26 AM CDT [facility] Sodium 136 136 - 145 mmol/L 09/16/2020 5:26 AM CDT [facility] Potassium 3.1(L) 3.5 - 5.1 mmol/L 09/16/2020 5:26 AM CDT [facility] Chloride 103 98 - 107 mmol/L 09/16/2020 5:26 AM CDT [facility] CO2 26 23 - 31 mmol/L 09/16/2020 5:26 AM CDT [facility] Calcium 9.8 8.4 - 10.4 mg/dL 09/16/2020 5:26 AM CDT [facility] Anion Gap 7(L) 8 - 18 mmol/L 09/16/2020 5:26 AM CDT [facility] Comment:Attention clinician: Reference Range change. BUN 27(H) 9.8 - 20.1 mg/dL 09/16/2020 5:26 AM CDT [facility] Creatinine 0.80 0.57 - 1.11 mg/dL 09/16/2020 5:26 AM CDT [facility] eGFR by MDRD >60 mL/min/1.7 3m2 09/16/2020 5:26 AM CDT [facility] eGFR by MDRD >60 mL/min/1.7 3m2 09/16/2020 5:26 AM CDT [facility] Blood BLOOD SPECIMEN / Unknown Venipuncture / Unknown 09/16/2020 4:17 AM CDT 09/16/2020 4:29 AM CDT Mahad Walsh MD LAB - CHEMISTRY ROWAN QUIROZ [facility] Organization Address City/State/ZIP Co de Phone Number [facility] [address] [place] [address] * (ABNORMAL) GLUCOSE - POINT OF CARE (09/15/2020 7:48 PM CDT) Glucose WB/POC 192(H) 70 - 106 mg/dL 09/16/2020 12:14 PM CDT [facility] Specimen Type Arterial/C apillary 09/16/2020 12:14 PM CDT [facility] Blood BLOOD SPECIMEN / Unknown 09/15/2020 7:48 PM CDT 09/16/2020 12:14 PM CDT Elieser Mccartney MD LAB - POINT OF CARE ORDERABLES Performing Organization Address [facility] de Phone Number [facility] [address] [place] [address] * (ABNORMAL) GLUCOSE - POINT OF CARE (09/15/2020 4:06 PM CDT) Glucose WB/POC 185(H) 70 - 106 mg/dL 09/16/2020 12:14 PM CDT [facility] Specimen Type Arterial/C apillary 09/16/2020 12:14 PM CDT [facility] Blood BLOOD SPECIMEN / Unknown 09/15/2020 4:06 PM CDT 09/16/2020 12:14 PM CDT Elieser Mccartney MD LAB - POINT OF CARE ORDERABLES Performing Organization Address [facility] de Phone Number [facility] [phone] [place] [phone] * (ABNORMAL) GLUCOSE - POINT OF CARE (09/15/2020 11:39 AM CDT) Glucose WB/POC 170(H) 70 - 106 mg/dL 09/16/2020 12:14 PM CDT [facility] Specimen Type Arterial/C apillary 09/16/2020 12:14 PM CDT [facility] Blood BLOOD SPECIMEN / Unknown 09/15/2020 11:39 AM CDT 09/16/2020 12:14 PM CDT Elieser Mccartney MD LAB - POINT OF CARE ORDERABLES Performing Organization Address [facility] Co de Phone Number [facility] [id number] [place] [id number] * GLUCOSE - POINT OF CARE (09/15/2020 7:40 AM CDT) Pathologist [facility] [place] Glucose WB/POC 93 70 - 106 mg/dL 09/16/2020 12:14 PM CDT [facility] Specimen Type Arterial/C apillary 09/16/2020 12:14 PM CDT [facility] Blood BLOOD SPECIMEN / Unknown 09/15/2020 7:40 AM CDT 09/16/2020 12:14 PM CDT Jaren Herrera MD LAB - POINT OF CARE ORDERABLES [facility] [id number] [place] [address] * XR CHEST 1VW PORTABLE (09/15/2020 6:12 AM CDT) Anatomical Region Laterality Modality Chest Radiographic Mireya ging 09/15/2020 9:03 AM CDT Narrative 09/15/2020 9:04 AM CDT Portable AP chest INDICATION: Occasional cough COMPARISON: Chest x-ray 08/06/2018 FINDINGS: Diffuse vascular calcifications. Stable cardiomegaly. No infiltrates. Stable aortic calcifications. No pneumothorax or pleural effusion. *Reading Radiologist: Shakira García on 09/15/2020 at 9:04 AM Procedure Note Shakira García MD - 09/15/2020 Portable AP chest INDICATION: Occasional cough COMPARISON: Chest x-ray 08/06/2018 FINDINGS: Diffuse vascular calcifications. Stable cardiomegaly. No infiltrates. Stable aortic calcifications. No pneumothorax or pleural effusion. *Reading Radiologist: Shakira García on 09/15/2020 at 9:04 AM Mahad Walsh MD DIAGNOSTIC IMAGING O RDERABLES * (ABNORMAL) CBC W AUTO DIFFERENTIAL (09/15/2020 3:37 AM CDT) WBC 12.8(H) 4.4 - 10.7 x10E9/L 09/15/2020 5:01 AM CDT [facility] WBC Corrected 09/15/2020 5:01 AM CDT [facility] RBC 4.70 3.80 - 5.20 x10E12/L 09/15/2020 5:01 AM CDT [facility] Hemoglobin 11.9(L) 12.0 - 15.6 gm/dL 09/15/2020 5:01 AM CDT [facility] Hematocrit 37.8 35.9 - 45.5 % 09/15/2020 5:01 AM CDT [facility] MCV 80.4(L) 80.7 - 98.3 fl 09/15/2020 5:01 AM CDT [facility] MCH 25.3(L) 26.7 - 34.0 pg 09/15/2020 5:01 AM CDT [facility] MCHC 31.5 30.8 - 35.9 gm/dL 09/15/2020 5:01 AM T [facility] Platelet Count 309 153 - 416 x10E9/L 09/15/2020 5:01 AM [facility] RDW-CV 16.7(H) 12.1 - 14.9 % 09/15/2020 5:01 AM T [facility] MPV 10.8 9.4 - 12.9 fl 09/15/2020 5:01 AM [facility] [facility] Neutrophils % 63.9 44.0 - 73.0 % 09/15/2020 5:01 AM T [facility] Lymphocytes % 12.9(L) 20.0 - 43.0 % 09/15/2020 5:01 AM T [facility] Monocytes % 18.8(H) 5.0 - 13.0 % 09/15/2020 5:01 AM CDT [facility] Eosinophils % 2.7 0.0 - 6.0 % 09/15/2020 5:01 AM CDT [facility] Basophils % 0.5 0.0 - 2.0 % 09/15/2020 5:01 AM CDT [facility] Immature Granulocytes 1.2(H) 0 - 1 % 09/15/2020 5:01 AM CDT [facility] Neutrophil Absolute 8.16(H) 2.01 - 7.14 x10E9/L 09/15/2020 5:01 AM CDT [facility] Lymphocytes Absolute 1.65 1.07 - 3.94 x10E9/L 09/15/2020 5:01 AM CDT [facility] Monocytes Absolute 2.41(H) 0.26 - 1.07 x10E9/L 09/15/2020 5:01 AM CDT [facility] Eosinophils Absolute 0.35 0 - 0.47 x10E9/L 09/15/2020 5:01 AM CDT [facility] Basophils Absolute 0.07 0 - 0.08 x10E9/L 09/15/2020 5:01 AM CDT [facility] Immature Granulocytes Absolute 0.15(H) 0.00 - 0.06 x10E9/L 09/15/2020 5:01 AM CDT [facility] nRBC Auto 0 /100 WBC 09/15/2020 5:01 AM CDT [facility] Blood BLOOD SPECIMEN / Unknown Venipuncture / Unknown 09/15/2020 3:37 AM CDT 09/15/2020 4:55 AM CDT Mahad Walsh MD LAB - HEMATOLOGY ORD ERABLES [facility] [address] [place] [address] * (ABNORMAL) BASIC METABOLIC PANEL (CALCIUM TOTAL) (09/15/2020 3:37 AM CDT) Glucose 111(H) 70 - 105 mg/dL 09/15/2020 5:14 AM CDT [facility] Sodium 134(L) 136 - 145 mmol/L 09/15/2020 5:14 AM CDT [facility] Potassium 3.1(L) 3.5 - 5.1 mmol/L 09/15/2020 5:14 AM CDT [facility] Chloride 100 98 - 107 mmol/L 09/15/2020 5:14 AM CDT [facility] CO2 25 23 - 31 mmol/L 09/15/2020 5:14 AM CDT [facility] Calcium 9.6 8.4 - 10.4 mg/dL 09/15/2020 5:14 AM CDT [facility] Anion Gap 9 8 - 18 mmol/L 09/15/2020 5:14 AM CDT [facility] Comment:Attention clinician: Reference Range change. BUN 36(H) 9.8 - 20.1 mg/dL 09/15/2020 5:14 AM CDT [facility] Creatinine 0.91 0.57 - 1.11 mg/dL 09/15/2020 5:14 AM CDT [facility] eGFR by MDRD 59 mL/min/1.7 3m2 09/15/2020 5:14 AM CDT [facility] eGFR by MDRD >60 mL/min/1.7 3m2 09/15/2020 5:14 AM CDT [facility] Blood BLOOD SPECIMEN / Unknown Venipuncture / Unknown 09/15/2020 3:37 AM CDT 09/15/2020 4:55 AM CDT Mahad Walsh MD LAB - CHEMISTRY [facility]OW[facility] QUIRO[facility] Organization Address City/State/ZIP Co de Phone Number [facility] [address] [place] [address] * HEMOGLOBIN A1C (09/15/2020 3:37 AM CDT) Hemoglobin A1c 5.6 4.2 - 5.6 % 09/15/2020 5:11 AM CDT [facility] Estimated Average Glucose 114 mg/dL 09/15/2020 5:11 AM CDT [facility] Blood BLOOD SPECIMEN / Unknown Venipuncture / Unknown 09/15/2020 3:37 AM CDT 09/15/2020 4:55 AM CDT Narrative [facility] - 09/15/2020 5:11 AM CDT The following cutoff levels are recommended by [place] [employer]. ?? A1c ??> 6.5% : considered as diabetes if two separate tests >6.5% or in an appropriate clinical setting. A1c ??5.7% - 6.4% : considered as prediabetes (suggest increased risk for diabetes and cardiovascular disease) Control target level: ??Should be individualized. ??< 7 ??for general (non- ) , ??< 8% less stringent goal, ??< 6.5 ??more stringent goal. Hemoglobin A1c measurements are used as an aid in the diagnosis of diabetic mellitus, as an aid to identify patients who may be at the risk for developing diabetic mellitus, and for the monitoring long-term blood glucose control in individuals with diabetes mellitus. ??This test should not replace glucose testing for patients with Type 1 diabetes, pediatric patients, or women. ??Falsely low HbA1c results may be observed in patients with clinical conditions that shorten erythrocyte life span or decrease mean erythrocyte age such as the presence of unstable hemoglobin variants, elevated hemoglobin F level ??or other causes of hemolytic anemia . ??HbA1c may not accurately reflect glycemic control when clinical conditions that affect erythrocyte survival are present. ??Severe Iron deficiency anemia may yield falsely high results. ??Hemoglobin A1c assay should not be used to diagnose or monitor diabetes in patients with malignancy, recent blood transfusion, chronic kidney or liver disease. ?? This method may yield falsely low results when hemoglobin (HbF) exceeds 5% in the specimen. Mahad Walsh MD LAB - CHEMISTRY [facility] Performing Organization Address [facility] Co de Phone Number [facility] [address] [place] [address] * (ABNORMAL) GLUCOSE - POINT OF CARE (09/14/2020 11:01 PM CDT) [facility] Glucose WB/POC 231(H) 70 - 106 mg/dL 09/15/2020 12:38 AM CDT [facility] Specimen Type Arterial/C apillary 09/15/2020 12:38 AM CDT [facility] Blood BLOOD SPECIMEN / Unknown 09/14/2020 11:01 PM CDT 09/15/2020 12:38 AM CDT Mahad Walsh MD LAB - POINT OF CARE ORDERABLES Performing Organization Address [facility] de Phone Number [facility] [address] [place] [address] * XR PELVIS W LEFT HIP 2VW (09/14/2020 5:06 PM CDT) Anatomical Region Laterality Modality Pelvis Radiographic Mireya ging 09/14/2020 5:10 PM CDT Narrative 09/14/2020 5:11 PM CDT EXAM: XR PELVIS W LEFT HIP 2VW*[id number] INDICATION: Pain in left hip, pelvic pain COMPARISON: none available FINDINGS: There is joint space narrowing at bilateral hips with no fracture, dislocation or osseous destruction. *Reading Radiologist: Adan Norton on 09/14/2020 at 5:11 PM Procedure Note Adan Norton MD - 09/14/2020 EXAM: XR PELVIS W LEFT HIP 2VW*[id number] INDICATION: Pain in left hip, pelvic pain COMPARISON: none available FINDINGS: There is joint space narrowing at bilateral hips with no fracture, dislocation or osseous destruction. *Reading Radiologist: Adan Norton on 09/14/2020 at 5:11 PM José Luis Mederos PA-C DIAGNOSTIC IMAGING ORDERABLES * VAS LEFT VENOUS DUPLEX LE (09/14/2020 4:36 PM CDT) Anatomical Region Laterality Modality Lower Extremity, Upper Extremity Ultrasound 09/14/2020 4:12 PM CDT Narrative Procedure Note Claude Engel MD - 09/15/2020 [place] [address] Lower Extremity Venous Ultrasound Report Pat.Name: MONICA, LOC Pat.ID: [id number] .Date: 09/14/2020 Exam Time: 4:12:00 PM Study Type:LE Venous Age: 7 1940,79Y Sex: FEMALE Sonogrphr: Dwaine Coon RVT Pat. Stat.:Outpatient Room: ED RM 28 Reason for Study: Left hip pain History / Clinical: Hypertension, Diabetes, Coronary artery disease, Obesity, Atrial fibrillation, Hyperlipidemia, TIA, Breast cancer Procedures: Lower Extremity Venous - Left Race: 2 Visit ID: [id number] ++++++++++++++++++++++++++++++++++++ SUMMARY: ++++++++++++++++++++++++++++++++++++ There is no evidence [...] 01:21 PM Claude Engel MD José Luis Mederos PA-C VASCULAR L AB ORDERABLES * (ABNORMAL) COMPREHENSIVE METABOLIC PANEL (09/14/2020 3:53 PM CDT) Glucose 180(H) 70 - 105 mg/dL 09/14/2020 4:29 PM CDT [facility] Sodium 137 136 - 145 mmol/L 09/14/2020 4:29 PM CDT [facility] Potassium 3.2(L) 3.5 - 5.1 mmol/L 09/14/2020 4:29 PM CDT [facility] Chloride 98 98 - 107 mmol/L 09/14/2020 4:29 PM CDT [facility] CO2 27 23 - 31 mmol/L 09/14/2020 4:29 PM CDT [facility] Calcium 10.3 8.4 - 10.4 mg/dL 09/14/2020 4:29 PM CDT [facility] Anion Gap 12 8 - 18 mmol/L 09/14/2020 4:29 PM CDT [facility] Comment:Attention clinician: ??Reference Range change. BUN 34(H) 9.8 - 20.1 mg/dL 09/14/2020 4:29 PM CDT [facility] Creatinine 1.32(H) 0.57 - 1.11 mg/dL 09/14/2020 4:29 PM CDT [facility] Alkaline Phosphatase 85 40 - 150 U/L 09/14/2020 4:29 PM CDT [facility] Comment:Attention clinician: ??Reference Range change. ALT 21 0 - 61 U/L 09/14/2020 4:29 PM CDT [facility] AST 14 5 - 34 U/L 09/14/2020 4:29 PM CDT [facility] Protein Total 7.6 6.4 - 8.3 gm/dL 09/14/2020 4:29 PM CDT [facility] Albumin 4.3 3.2 - 4.6 gm/dL 09/14/2020 4:29 PM CDT [facility] Bilirubin Total 0.4 0.2 - 1.2 mg/dL 09/14/2020 4:29 PM CDT [facility] Comment:Attention clinician: ??Reference Range change. eGFR by MDRD 39 mL/min/1.7 3m2 09/14/2020 4:29 PM CDT [facility] eGFR by MDRD 47 mL/min/1.7 3m2 09/14/2020 4:29 PM CDT [facility] Blood BLOOD SPECIMEN / Unknown Venipuncture / Unknown 09/14/2020 3:53 PM CDT 09/14/2020 4:10 PM CDT José Luis Mederos PA-C LAB - CHEM ISTRY ORDERABLES [facility] [address] [place] [address] * (ABNORMAL) CBC W AUTO DIFFERENTIAL (09/14/2020 3:53 PM CDT) WBC 15.7(H) 4.4 - 10.7 x10E9/L 09/14/2020 4:14 PM CDT [facility] WBC Corrected 09/14/2020 4:14 PM CDT [facility] RBC 5.33(H) 3.80 - 5.20 x10E12/L 09/14/2020 4:14 PM CDT [facility] Hemoglobin 13.5 12.0 - 15.6 gm/dL 09/14/2020 4:14 PM CDT [facility] Hematocrit 43.2 35.9 - 45.5 % 09/14/2020 4:14 PM CDT [facility] MCV 81.1 80.7 - 98.3 fl 09/14/2020 4:14 PM CDT [facility] MCH 25.3(L) 26.7 - 34.0 pg 09/14/2020 4:14 PM CDT [facility] MCHC 31.3 30.8 - 35.9 gm/dL 09/14/2020 4:14 PM CDT [facility] Platelet Count 355 153 - 416 x10E9/L 09/14/2020 4:14 PM CDT [facility] RDW-CV 16.7(H) 12.1 - 14.9 % 09/14/2020 4:14 PM CDT [facility] MPV 10.6 9.4 - 12.9 fl 09/14/2020 4:14 PM CDT [facility] Neutrophils % 69.2 44.0 - 73.0 % 09/14/2020 4:14 PM CDT [facility] Lymphocytes % 12.1(L) 20.0 - 43.0 % 09/14/2020 4:14 PM CDT [facility] Monocytes % 15.5(H) 5.0 - 13.0 % 09/14/2020 4:14 PM CDT [facility] Eosinophils % 1.7 0.0 - 6.0 % 09/14/2020 4:14 PM CDT [facility] Basophils % 0.6 0.0 - 2.0 % 09/14/2020 4:14 PM CDT [facility] Immature Granulocytes 0.9 0 - 1 % 09/14/2020 4:14 PM CDT [facility] Neutrophil Absolute 10.88(H) 2.01 - 7.14 x10E9/L 09/14/2020 4:14 PM CDT [facility] Lymphocytes Absolute 1.90 1.07 - 3.94 x10E9/L 09/14/2020 4:14 PM CDT [facility] Monocytes Absolute 2.44(H) 0.26 - 1.07 x10E9/L 09/14/2020 4:14 PM CDT [facility] Eosinophils Absolute 0.27 0 - 0.47 x10E9/L 09/14/2020 4:14 PM CDT [facility] Basophils Absolute 0.09(H) 0 - 0.08 x10E9/L 09/14/2020 4:14 PM CDT [facility] Immature Granulocytes Absolute 0.14(H) 0.00 - 0.06 x10E9/L 09/14/2020 4:14 PM CDT [facility] nRBC Auto 0 /100 WBC 09/14/2020 4:14 PM CDT [facility] Blood BLOOD SPECIMEN / Unknown Venipuncture / Unknown 09/14/2020 3:53 PM CDT 09/14/2020 4:10 PM CDT José Luis Mederos PA-C LAB - AVINASH TOLOGY ORDERABLES [facility] [address] [place] [address] documented in this encounter Visit Diagnoses Diagnosis TIA (transient ischemic attack)- Primary Unspecified transient cerebral ischemia Left hip pain Pain in joint, pelvic region and thigh Ambulatory dysfunction 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 0.9% NaCl injection 3 mL 3 mL, Intracatheter, EVERY 8 HOURS, First dose on Fri09/14/20 at 2200, Until Discontinued, Flush peripheral IV catheter with 3 mL of normal saline every 8 hours. $ Given 09/20/2020 3:09 PM CDT 3 mL $ Given 09/20/2020 5:32 AM CDT 3 mL $ Given 09/19/2020 10:09 PM CDT 3 mL acetaminophen (Tylenol) tablet 650 mg 650 mg, Oral, EVERY 6 HOURS PRN, Mild Pain, Starting on Fri09/15/20 at 0323, Until Fri09/21/20 at 0034 amitriptyline (Elavil) tablet 50 mg 50 mg, Oral, ONCE, 1 dose, On Fri09/14/20 at 2115 $ Given 09/14/2020 9:37 PM CDT 50 mg amitriptyline (Elavil) tablet 50 mg 50 mg, Oral, AT BEDTIME, First dose on Fri09/15/20 at 2100, Until Discontinued $ Given 09/19/2020 10:07 PM CDT 50 mg $ Given 09/18/2020 9:11 PM CDT 50 mg $ Given 09/17/2020 9:25 PM CDT 50 mg aspirin chew tablet 81 mg 81 mg, Oral, DAILY, First dose on Fri09/15/20 at 0900, Until Discontinued $ Given 09/18/2020 8:53 AM CDT 81 mg $ Given 09/17/2020 8:25 AM CDT 81 mg $ Given 09/16/2020 8:21 AM CDT 81 mg atorvastatin (Lipitor) tablet 40 mg 40 mg, Oral, AT BEDTIME, First dose on Fri09/15/20 at 2100, Until Discontinued $ Given 09/19/2020 10:07 PM CDT 40 mg $ Given 09/18/2020 9:11 PM CDT 40 mg $ Given 09/17/2020 9:25 PM CDT 40 mg bromfenac Sodium (Prolensa) 0.07 % opthalmic solution 1 drop 1 drop, Right Eye, DAILY, First dose on Fri09/15/20 at 1030, Until Discontinued $ Given 09/20/2020 9:25 AM CDT 1 d rop $ Given 09/19/2020 8:48 AM CDT 1 drop $ Given 09/18/2020 8:54 AM CDT 1 drop clopidogrel (plaVIX) tablet 75 mg 75 mg, Oral, ONCE, 1 dose, On Fri09/14/20 at 2115 $ Given 09/14/2020 9:19 PM CDT 75 mg clopidogrel (plaVIX) tablet 75 mg 75 mg, Oral, AT BEDTIME, First dose on Fri09/15/20 at 2100, Until Discontinued $ Given 09/17/2020 9:25 PM CDT 75 mg $ Given 09/16/2020 8:43 PM CDT 75 mg $ Given 09/15/2020 9:06 PM CDT 75 mg dextrose IV 12.5-25 g 12.5-25 g (25-50 mL), Intravenous, PRN, Bedside Glucose less than 70 mg/dL -If NOT able to eat and/or NPO and with IV Access, Starting on Fri09/15/20 at 0324, Until Fri09/21/20 at 0034, If NOT able to eat and/or NPO and with IV Access: For Bedside Glucose 54-69 mg/dL give 25 mls D50W IVP STAT For Bedside glucose 54 mg/dL or LESS verify with a second Bedside Glucose (from a different site) and give 50 mls D50W IVP STAT Re-check and Re-treat blood glucose EVERY 10-25 minutes until blood glucose GREATER than or equal to 80 mg/dl. NOTIFY PROVIDER OF HYPOGLYCEMIC EVENT. dorzolamide (Trusopt) 2 % ophthalmic solution 1 drop 1 drop, Each Eye, 2 TIMES DAILY, First dose on Fri09/15/20 at 0900, Until Discontinued, Allow at least 10 minutes between administration of multiple opthalmic products $ Given 09/19/2020 10:14 PM CDT 1 drop $ Given 09/19/2020 8:48 AM CDT 1 drop $ Given 09/18/2020 9:12 PM CDT 1 drop flecainide (Tambocor) tablet 50 mg 50 mg, Oral, ONCE, 1 dose, On Fri09/14/20 at 2115 $ Given 09/14/2020 9:37 PM CDT 50 mg flecainide (Tambocor) tablet 50 mg 50 mg, Oral, 2 TIMES DAILY, First dose on Fri09/15/20 at 0900, Until Discontinued $ Given 09/20/2020 9:23 AM CDT 50 m g $ Given 09/19/2020 10:07 PM CDT 50 mg $ Given 09/19/2020 8:47 AM CDT 50 mg furosemide (Lasix) tablet 40 mg 40 mg, Oral, DAILY, First dose on Fri09/15/20 at 0900, Until Discontinued $ Given 09/20/2020 9:23 AM CDT 40 mg $ Given 09/19/2020 8:47 AM CDT 40 mg $ Given 09/18/2020 8:53 AM CDT 40 mg glucagon (Glucagen) injection 1 mg 1 mg, Intramuscular, PRN, Bedside Glucose less than 70 mg/dL - If NOT able to eat and/or NPO and withOUT IV Access, Starting on Fri09/15/20 at 0324, Until Fri09/21/20 at 0034, If NOT able to eat and/or NPO and NO IV Access: For Bedside glucose 54-69 mg/dL Give 1 mg IM or SQ For Bedside Glucose LESS than 54 mg/dl verify with a second bedside glucose (from a different site) and Give 1 mg IM or SQ Re-check and Re-treat blood glucose EVERY [...] does not have swallowing difficulties, Starting on Fri09/15/20 at 0324, Until Fri09/21/20 at 0034, If able to eat and can swallow [...] pt is symptomatic, do not delay treatment If the patient is exhibiting symptoms which are not consistent with the results obtained, confirm the glucose with a STAT laboratory test. Give [...] 80 mg/dl. NOTIFY PROVIDER OF HYPOGLYCEMIC EVENT. glucose (Diabetic Use) oral gel Oral, PRN, Other, Bedside Glucose less than 70 mg/dL -If able to eat and does not have swallowing difficulties, Starting on Fri09/15/20 at 0324, Until Fri09/21/20 at 0034, If able to eat and is better [...] pt is symptomatic, do not delay treatment If the patient is exhibiting symptoms which are not consistent with the results obtained, confirm the glucose with a STAT laboratory test. Give [...] 80 mg/dl. NOTIFY PROVIDER OF HYPOGLYCEMIC EVENT. 1 tube delivers 15 grams dextrose/carbohydrates heparin injection 5,000 Units 5,000 Units, Subcutaneous, EVERY 8 HOURS, First dose on Fri09/15/20 at 0600, Until Discontinued $ Given 09/20/2020 3:08 PM CDT 5,000 Units Abd Right Lower Quadrant $ Given 09/20/2020 5:33 AM CDT 5,000 Units A bdominal Tissue $ Given 09/19/2020 10:08 PM CDT 5,000 Units Abdominal Tissue HYDROcodone-acetaminophen ([place]) 5-325 MG tablet 1 tablet 1 tablet, Oral, EVERY 4 HOURS PRN, Moderate Pain, Starting on Fri09/15/20 at 0323, Until Fri09/21/20 at 0034 $ Given 09/17/2020 6:25 AM CDT 1 tablet insulin aspart (NovoLOG) pen 0-6 Units 0-6 Units, Subcutaneous, 3 TIMES DAILY WITH MEALS, First dose on Fri09/15/20 at 0800, Until Discontinued, Low Dose: Correction Insulin BG (mg/dL) Corrective Action LESS than 70: follow Hypoglycemic guidelines, 70-180: NO Correction insulin, 181-220: GIVE 2 units of insulin, 221-260: GIVE 3 units of insulin, 261-300: GIVE 4 units of insulin, 301-350: GIVE 5 units of insulin, Greater than 350: GIVE 6 units of insulin and notify physician., If the patient is NPO: DO NOT HOLD correction insulin If patient is eating meals and has orders for Mealtime insulin, combine and give at the same time. $ Given 09/20/2020 1:51 PM CDT 2 Units Abd Right Lower Quadrant $ Given 09/20/2020 9:20 AM CDT 2 Units Ab d Right Lower Quadrant $ Given 09/19/2020 5:27 PM CDT 2 Units Ri ght Arm insulin glargine (Lantus) pen 8 Units 8 Units, Subcutaneous, DAILY, First dose on Fri09/15/20 at 0900, Until Discontinued, Obtain a current Blood Glucose if necessary. . WASTE DISPOSAL INSTRUCTIONS: Black Bin Disposal required. $ Given 09/20/2020 9:24 AM CDT 8 Units Abd Right Lower Quad rant $ Given 09/19/2020 8:48 AM CDT 8 Units Ab d Left Lower Quadrant $ Given 09/18/2020 8:57 AM CDT 8 Units Ab d Right Upper Quadrant ketorolac (Toradol) injection 15 mg 15 mg, Intravenous, NOW, 1 dose, On Fri09/14/20 at 1545 $ Given 09/14/2020 3:53 PM CDT 15 mg levothyroxine (Synthroid) tablet 50 mcg 50 mcg, Oral, DAILY AT 0600, First dose on Fri09/15/20 at 0600, Until Discontinued, Take in the morning on an empty stomach. Do not give within 4 hours of antacids, iron or calcium supplements. $ Given 09/20/2020 5:33 AM CDT 50 mcg $ Given 09/19/2020 6:09 AM CDT 50 mcg $ Given 09/18/2020 5:30 AM CDT 50 mcg metOLazone (Zaroxolyn) tablet 2.5 mg 2.5 mg, Oral, ONCE TWICE A WEEK (Once per day on Fri), First dose on Fri09/19/20 at 0800, Until Discontinued, per home dose and frequency $ Given 09/19/2020 1:39 PM CDT 2.5 mg morphine injection 2 mg 2 mg, Intravenous, EVERY 3 HOURS PRN, Moderate Pain, Starting on Fri09/15/20 at 0324, Until Fri09/21/20 at 0034, If oral route is unavailable. morphine injection 4 mg 4 mg, Intravenous, EVERY 3 HOURS PRN, Severe Pain, Starting on Fri09/15/20 at 0324, Until Fri09/21/20 at 0034, Allow a repeat dose for severe pain? No ondansetron (disintegrating) (Zofran ODT) tablet 4 mg 4 mg, Oral, EVERY 6 HOURS PRN, Nausea/Vomiting, Starting on Fri09/15/20 at 0324, Until Fri09/21/20 at 0034, Dissolved orally on tongue Dissolved orally on tongue ondansetron (Zofran) injection 4 mg 4 mg, Intravenous, EVERY 6 HOURS PRN, Nausea/Vomiting, Starting on Fri09/15/20 at 0324, Until Fri09/21/20 at 0034, Administer IV if patient is NPO, actively vomiting, or unable to swallow. pantoprazole EC (Protonix) tablet 40 mg 40 mg, Oral, ONCE, 1 dose, On Fri09/14/20 at 2115, Do not crush, chew, or cut in half. $ Given 09/14/2020 9:20 PM CDT 40 mg pantoprazole EC (Protonix) tablet 40 mg 40 mg, Oral, DAILY, First dose on Fri09/15/20 at 0900, Until Discontinued, Do not crush, chew, or cut in half. $ Given 09/20/2020 9:23 AM CDT 40 mg $ Given 09/19/2020 8:47 AM CDT 40 mg $ Given 09/18/2020 8:53 AM CDT 40 mg potassium chloride (Klor-Con) packet 20 mEq 20 mEq, Oral, DAILY WITH BREAKFAST, First dose on Fri09/15/20 at 0800, Until Discontinued $ Given 09/20/2020 9:23 AM CDT 20 mEq $ Given 09/19/2020 8:47 AM CDT 20 mEq $ Given 09/18/2020 8:53 AM CDT 20 mEq potassium chloride ER (Klor-Con M) tablet 20 mEq 20 mEq, Oral, ONCE, 1 dose, On Magali 09/14/20 at 2115, Do not crush or chew. $ Given 09/14/2020 9:19 PM CDT 20 mEq potassium chloride ER (Klor-Con M) tablet 40 mEq 40 mEq, Oral, ONCE, 1 dose, On Fri09/15/20 at 0845, Do not crush or chew. $ Given 09/15/2020 9:45 AM CDT 40 mEq potassium chloride ER (Klor-Con M) tablet 40 mEq 40 mEq, Oral, ONCE, 1 dose, On 09/16/20 at 0830, Do not crush or chew. $ Given 09/16/2020 8:21 AM CDT 40 mEq potassium chloride ER (Klor-Con M) tablet 40 mEq 40 mEq, Oral, ONCE, 1 dose, On 09/16/20 at 2000, In addition to Kcl chris already given today Do not crush or chew. $ Given 09/16/2020 8:43 PM CDT 40 mEq potassium chloride ER (Klor-Con M) tablet 40 mEq 40 mEq, Oral, ONCE, 1 dose, On Fri09/20/20 at 0800, Do not crush or chew. $ Given 09/20/2020 9:23 AM CDT 40 mEq spironolactone (Aldactone) tablet 25 mg 25 mg, Oral, DAILY, First dose on Fri09/15/20 at 0900, Until Discontinued $ Given 09/20/2020 9:23 AM CDT 25 mg $ Given 09/19/2020 8:47 AM CDT 25 mg $ Given 09/18/2020 8:53 AM CDT 25 mg verapamil CR (Isoptin-SR) tablet 120 mg 120 mg, Oral, ONCE, 1 dose, On Magali 09/14/20 at 2115, Do not crush or chew. $ Given 09/14/2020 9:19 PM CDT 120 mg verapamil CR (Isoptin-SR) tablet 120 mg 120 mg, Oral, AT BEDTIME, First dose on Fri09/15/20 at 2100, Until Discontinued, Do not crush or chew. $ Given 09/19/2020 10:07 PM CDT 120 mg $ Given 09/18/2020 9:11 PM CDT 120 mg $ Given 09/16/2020 8:43 PM CDT 120 mg documented in this encounter Active and Recently Administered Medications Times are shown in CDT. Scheduled Medication Order 09/18/2020 09/19/2020 09/20/2020 0.9% NaCl injection 3 mL(Linked Group 1) 3 mL, Intracatheter, EVERY 8 HOURS, First dose on Fri09/14/20 at 2200, Until Discontinued, Flush peripheral IV catheter with 3 mL of normal saline every 8 hours. 0530 ($ Given - Provider: Kourtney Cazares LPN)1248 ($ Given - Provider: Malou Garcia)2112 ($ Given - Provider: Fidel Jenkins RN) 0609 ($ Given - Provider: Fidel Jenkins RN)1342 ($ Given - Provider: Malou Garcia)2209 ($ Given - Provider: Nelly Dos Santos, DES) 0532 ($ Given - Provider: Nelly Dos Santos RN)1509 ($ Given - Provider: Brissa Shelley RN) amitriptyline (Elavil) tablet 50 mg 50 mg, Oral, AT BEDTIME, First dose on Fri09/15/20 at 2100, Until Discontinued 2110 ($ Given - Provider: Fidel Jenkins RN) 2206 ($ Given - Provider: Nelly Dos Santos, DES) aspirin chew tablet 81 mg (CANCELED) 81 mg, Oral, DAILY, First dose on Fri09/15/20 at 0900, Until Discontinued 08 ($ Given - Provider: Malou Garcia) atorvastatin (Lipitor) tablet 40 mg 40 mg, Oral, AT BEDTIME, First dose on Fri09/15/20 at 2100, Until Discontinued 2110 ($ Given - Provider: Fidel Jenkins RN) 2206 ($ Given - Provider: Nelly Dos Santos, DES) bromfenac Sodium (Prolensa) 0.07 % opthalmic solution 1 drop 1 drop, Right Eye, DAILY, First dose on Fri09/15/20 at 1030, Until Discontinued 0854 ($ Given - Provider: Malou Garcia) 0848 ($ Given - Provider: Malou Garcia) 0925 ($ Given - Provider: Brissa Shelley RN) dorzolamide (Trusopt) 2 % ophthalmic solution 1 drop 1 drop, Each Eye, 2 TIMES DAILY, First dose on Fri09/15/20 at 0900, Until Discontinued, Allow at least 10 minutes between administration of multiple opthalmic products 0854 ($ Given - Provider: Malou Garcia)2112 ($ Given - Provider: Fidel Jenkins RN) 0848 ($ Given - Provider: Malou Garcia)2214 ($ Given - Provider: Nelly Dos Santos RN) 0925 (Not Administered - Provider: Brissa Shelley RN - Reason: Refused-Patient) flecainide (Tambocor) tablet 50 mg 50 mg, Oral, 2 TIMES DAILY, First dose on Fri09/15/20 at 0900, Until Discontinued 0853 ($ Given - Provider: Malou Garcia)211 ($ Given - Provider: Fidel Jenkins RN) 0847 ($ Given - Provider: Malou Garcia)2207 ($ Given - Provider: Nelly Dos Santos RN) 0923 ($ Given - Provider: Brissa Shelley, DES) furosemide (Lasix) tablet 40 mg 40 mg, Oral, DAILY, First dose on Fri09/15/20 at 0900, Until Discontinued 0853 ($ Given - Provider: Malou Garcia) 0847 ($ Given - Provider: Malou Garcia) 0923 ($ Given - Provider: Brissa Shelley, DES) heparin injection 5,000 Units 5,000 Units, Subcutaneous, EVERY 8 HOURS, First dose on Fri09/15/20 at 0600, Until Discontinued 0530 ($ Given - Provider: Kourtney Cazares LPN)1248 (Not Administered - Provider: Malou Garcia - Reason: Refused-Patient)211 ($ Given - Provider: Fidel Jenkins RN) 0609 ($ Given - Provider: Fidel Jenkins RN)1339 ($ Given - Provider: Malou Garcia)2208 ($ Given - Provider: Nelly Dos Santos RN) 0533 ($ Given - Provider: Nelly Dos Santos RN)1508 ($ Given - Provider: Brissa Shelley, DES) insulin aspart (NovoLOG) pen 0-6 Units 0-6 Units, Subcutaneous, 3 TIMES DAILY WITH MEALS, First dose on Fri09/15/20 at 0800, Until Discontinued, Low Dose: Correction Insulin BG (mg/dL) Corrective Action LESS than 70: follow Hypoglycemic guidelines, 70-180: NO Correction insulin, 181-220: GIVE 2 units of insulin, 221-260: GIVE 3 units of insulin, 261-300: GIVE 4 units of insulin, 301-350: GIVE 5 units of insulin, Greater than 350: GIVE 6 units of insulin and notify physician., If the patient is NPO: DO NOT HOLD correction insulin If patient is eating meals and has orders for Mealtime insulin, combine and give at the same time. 0814 (Not Administered - Provider: Malou Garcia - Reason: Per Administration Instructions)1248 ($ Given - Provider: Malou Garcia)1710 (Not Administered - Provider: Malou Garcia - Reason: Per Administration Instructions) 0848 (Not Administered - Provider: Malou Garcia - Reason: Per Administration Instructions)1339 ($ Given - Provider: Malou Garcia)1727 ($ Given - Provider: Malou Garcia) 0920 ($ Given - Provider: Brissa Shelley RN)1351 ($ Given - Provider: Brissa Shelley, DES)1800 (Due) insulin glargine (Lantus) pen 8 Units 8 Units, Subcutaneous, DAILY, First dose on Fri09/15/20 at 0900, Until Discontinued, Obtain a current Blood Glucose if necessary. . WASTE DISPOSAL INSTRUCTIONS: Black Bin Disposal required. 0857 ($ Given - Provider: Malou Garcia) 0848 ($ Given - Provider: Malou Garcia) 0924 ($ Given - Provider: Brissa Shelley RN) levothyroxine (Synthroid) tablet 50 mcg 50 mcg, Oral, DAILY AT 0600, First dose on Fri09/15/20 at 0600, Until Discontinued, Take in the morning on an empty stomach. Do not give within 4 hours of antacids, iron or calcium supplements. 0530 ($ Given - Provider: Kourtney Cazares LPN) 0609 ($ Given - Provider: Fidel Jenkins, RN) 0533 ($ Given - Provider: Nelly Dos Santos, DES) metOLazone (Zaroxolyn) tablet 2.5 mg 2.5 mg, Oral, ONCE TWICE A WEEK (Once per day on Fri), First dose on Fri09/19/20 at 0800, Until Discontinued, per home dose and frequency 1339 ($ Given - Provider: Malou Garcia) pantoprazole EC (Protonix) tablet 40 mg 40 mg, Oral, DAILY, First dose on Fri09/15/20 at 0900, Until Discontinued, Do not crush, chew, or cut in half. 0853 ($ Given - Provider: Malou Garcia) 0847 ($ Given - Provider: Malou Garcia) 0923 ($ Given - Provider: Brissa Shelley, DES) potassium chloride (Klor-Con) packet 20 mEq 20 mEq, Oral, DAILY WITH BREAKFAST, First dose on Fri09/15/20 at 0800, Until Discontinued 0853 ($ Given - Provider: Malou Garcia) 0847 ($ Given - Provider: Malou Garcia) 0923 ($ Given - Provider: Brissa Shelley, DES) potassium chloride ER (Klor-Con M) tablet 40 mEq (COMPLETED) 40 mEq, Oral, ONCE, 1 dose, On Fri09/20/20 at 0800, Do not crush or chew. 0923 ($ Given - Provider: Brissa Shelley, RN) spironolactone (Aldactone) tablet 25 mg 25 mg, Oral, DAILY, First dose on Fri09/15/20 at 0900, Until Discontinued 0853 ($ Given - Provider: Malou Garcia) 0847 ($ Given - Provider: Malou Garcia) 0923 ($ Given - Provider: Brissa Shelley, DES) verapamil CR (Isoptin-SR) tablet 120 mg 120 mg, Oral, AT BEDTIME, First dose on Fri09/15/20 at 2100, Until Discontinued, Do not crush or chew. 2110 ($ Given - Provider: Fidel Jenkins, RN) 2206 ($ Given - Provider: Nelly Dos Santos, DES) PRN Medication Order 09/18/2020 09/19/2020 09/20/2020 0.9% NaCl injection 1-10 mL(Linked Group 1) 1-10 mL, Intracatheter, PRN, Other, peripheral line flush, Starting on Fri09/14/20 at 1942, Until Fri09/21/20 at 0034, Flush peripheral IV catheter with 1-10 mL of normal saline before and after medications and prn to clear blood from the line or to verify patency. acetaminophen (Tylenol) tablet 650 mg 650 mg, Oral, EVERY 6 HOURS PRN, Mild Pain, Starting on Fri09/15/20 at 0323, Until Fri09/21/20 at 0034 albuterol HFA (Proventil;Ventolin;Proair) 108 (90 Base) MCG/ACT inhaler 2 puff 2 puff, Inhalation, EVERY 4 HOURS PRN, Shortness of Breath, Wheezing, Starting on Fri09/15/20 at 0319, Until Fri09/21/20 at 003, Shake well before using. WASTE DISPOSAL INSTRUCTION: Send to Pharmacy for Disposal. dextrose IV 12.5-25 g 12.5-25 g (25-50 mL), Intravenous, PRN, Bedside Glucose less than 70 mg/dL -If NOT able to eat and/or NPO and with IV Access, Starting on Fri09/15/20 at 0324, Until Fri09/21/20 at 003, If NOT able to eat and/or NPO and with IV Access: For Bedside Glucose 54-69 mg/dL give 25 mls D50W IVP STAT For Bedside glucose 54 mg/dL or LESS verify with a second Bedside Glucose (from a different site) and give 50 mls D50W IVP STAT Re-check and Re-treat blood glucose EVERY 10-25 minutes until blood glucose GREATER than or equal to 80 mg/dl. NOTIFY PROVIDER OF HYPOGLYCEMIC EVENT. glucagon (Glucagen) injection 1 mg 1 mg, Intramuscular, PRN, Bedside Glucose less than 70 mg/dL - If NOT able to eat and/or NPO and withOUT IV Access, Starting on Fri09/15/20 at 0324, Until Fri09/21/20 at 33, If NOT able to eat and/or NPO and NO IV Access: For Bedside glucose 54-69 mg/dL Give 1 mg IM or SQ For Bedside Glucose LESS than 54 mg/dl verify with a second bedside glucose (from a different site) and Give 1 mg IM or SQ Re-check and Re-treat blood glucose EVERY [...] does not have swallowing difficulties, Starting on Fri09/15/20 at 0324, Until Magali 09/21/20 at 0034, If able to eat and can swallow [...] pt is symptomatic, do not delay treatment If the patient is exhibiting symptoms which are not consistent with the results obtained, confirm the glucose with a STAT laboratory test. Give [...] 80 mg/dl. NOTIFY PROVIDER OF HYPOGLYCEMIC EVENT. glucose (Diabetic Use) oral gel Oral, PRN, Other, Bedside Glucose less than 70 mg/dL -If able to eat and does not have swallowing difficulties, Starting on Fri09/15/20 at 0324, Until Magali 09/21/20 at 0034, If able to eat and is better [...] pt is symptomatic, do not delay treatment If the patient is exhibiting symptoms which are not consistent with the results obtained, confirm the glucose with a STAT laboratory test. Give [...] 80 mg/dl. NOTIFY PROVIDER OF HYPOGLYCEMIC EVENT. 1 tube delivers 15 grams dextrose/carbohydrates HYDROcodone-acetaminophen ([place]) 5-325 MG tablet 1 tablet 1 tablet, Oral, EVERY 4 HOURS PRN, Moderate Pain, Starting on Fri09/15/20 at 0323, Until Magali 09/21/20 at 0034 morphine injection 2 mg(Linked Group 2) 2 mg, Intravenous, EVERY 3 HOURS PRN, Moderate Pain, Starting on Fri09/15/20 at 0324, Until Magali 09/21/20 at 0034, If oral route is unavailable. morphine injection 4 mg(Linked Group 2) 4 mg, Intravenous, EVERY 3 HOURS PRN, Severe Pain, Starting on Fri09/15/20 at 0324, Until Magali 09/21/20 at 0034, Allow a repeat dose for severe pain? No ondansetron (disintegrating) (Zofran ODT) tablet 4 mg(Linked Group 3) 4 mg, Oral, EVERY 6 HOURS PRN, Nausea/Vomiting, Starting on Fri09/15/20 at 0324, Until Magali 09/21/20 at 0034, Dissolved orally on tongue Dissolved orally on tongue ondansetron (Zofran) injection 4 mg(Linked Group 3) 4 mg, Intravenous, EVERY 6 HOURS PRN, Nausea/Vomiting, Starting on Fri09/15/20 at 0324, Until Magali 09/21/20 at 0034, Administer IV if patient is NPO, actively vomiting, or unable to swallow. Linked Groups Order Group 1: SALINE LOCK, INSERT AND MAINTAIN (CANCELED) Routine, CONTINUOUS, Starting on Fri09/14/20 at 1945, Until Specified, New collection And 0.9% NaCl injection 3 mLJump to med 3 mL, Intracatheter, EVERY 8 HOURS, First dose on Fri09/14/20 at 2200, Until Discontinued, Flush peripheral IV catheter with 3 mL of normal saline every 8 hours. And 0.9% NaCl injection 1-10 mLJump to med 1-10 mL, Intracatheter, PRN, Other, peripheral line flush, Starting on Fri09/14/20 at 1942, Until Fri09/21/20 at 0034, Flush peripheral IV catheter with 1-10 mL of normal saline before and after medications and prn to clear blood from the line or to verify patency. Group 2: morphine injection 2 mgJump to med 2 mg, Intravenous, EVERY 3 HOURS PRN, Moderate Pain, Starting on Fri09/15/20 at 0324, Until Magali 09/21/20 at 0034, If oral route is unavailable. Or morphine injection 4 mgJump to med 4 mg, Intravenous, EVERY 3 HOURS PRN, Severe Pain, Starting on Fri09/15/20 at 0324, Until Magali 09/21/20 at 0034, Allow a repeat dose for severe pain? No Group 3: ondansetron (disintegrating) (Zofran ODT) tablet 4 mgJump to med 4 mg, Oral, EVERY 6 HOURS PRN, Nausea/Vomiting, Starting on Fri09/15/20 at 0324, Until Magali 09/21/20 at 0034, Dissolved orally on tongue Dissolved orally on tongue Or ondansetron (Zofran) injection 4 mgJump to med 4 mg, Intravenous, EVERY 6 HOURS PRN, Nausea/Vomiting, Starting on Fri09/15/20 at 0324, Until Magali 09/21/20 at 0034, Administer IV if patient is NPO, actively vomiting, or unable to swallow. documented in this encounter Care Teams Outreach Librarian Relationship Specialty [place] [address] [address] PCP - General Internal Medicine 03/31/18 05/30/22 Asha Narvaez, STATION JAILER-CORE DRILL OPERATOR HELPER [address] [facility] [address] [place] [address] PCP - Attributed-MSSP 08/17/20 10/16/20 Etienne Florez MD Orthopedic Surgery 12/09/14 [place] [address] [facility] [address] [place] [address] Oncology 09/15/17 [place] [address] [facility] [address] [place] [address] Neurology 06/26/18 [place] [address] [facility] [address] [place] [address] Cardiovascular Disease 06/26/18 [place] [address] [id number] Pulmonary Disease 06/26/18 Yuliya Ibarra MD [address] [facility] [address] [place] [id number] Endocrinology 06/26/18 Phuong Callejas DPM [address] [place] [address] Podiatry 06/26/18 Sy Barrientos MD [address] [place] [address] [place] [address] Ophthalmology 06/26/18 [place] [address] [address] [place] [address] [place] [address] Pulmonary Disease 06/26/18 Rico Gasca MD [address] [facility] [address] [place] [address] Urology 06/26/18 Elle Landaverde MD [address] [facility] [address] [place] [address] Vascular Surgery 06/26/18 Kirk Truong MD [address] [facility] [address] [place] [address] Gastroenterology 06/26/18 [place] [address] [place] [address] General Surgery 06/26/18 documented as of this encounter
--- OUTSIDE RECORDS SUMMARY | 2024-05-26 12:36 | XMS_ITS | Encounter Summary ---
Author Organization [facility] Address [address] [facility] [place] [address] Care Team Providers Care Metal Cutter Name Role Phone Etienne Florez MD Unavailable Enrique Gonzalez MD Unavailable [phone] Theresa Camargo MD Primary Care Provider Nelson Ross MD Unavailable Laz Valencia MD Unavailable Russell Moran MD Unavailable Yuliya Ibarra MD Unavailable [phone] Phuong Callejas DPM Unavailable [phone] Sy Barrientos MD Unavailable [phone] [place] Moran MD Unavailable Rico Gasca MD Unavailable [phone] Elle Landaverde MD Unavailable Kirk Truong MD Unavailable [phone] Shira Love DO Unavailable [phone] Asha Narvaez MAINTENANCE REPRESENTATIVE[facility] Unavailable [phone] Reason for Visit * Reason Onset Date Comments Appointment 10/04/2020 Encounter Details Date Type Department Care Team (Late st Contact Info) Description 10/04/2020 Telephone [facility] - Pulmonology [address] [facility] [address] [place] [address] [place] [address] [facility] [address] [place] [address] Appointment Social History Tobacco Use [...] encounter Miscellaneous Notes * Telephone Encounter - Chica Gaitan RN - 10/09/2020 2:21 PM CDT Hospital f/u appt scheduled. * Telephone Encounter - Alice Bhandari - 10/06/2020 2:46 PM CDT Patient calls back to schedule hospital follow up with Dr Schultz. * Telephone Encounter - Chica Gaitan RN - 10/04/2020 3:19 PM CDT Called to schedule 2-4 week hospital f/u appointment. Patient unsure so she will discuss with her family and check with Dr. Camargo during appointment 10/23/2020 and call back if she needs appointment. documented in this encounter Plan of Treatment Not on file documented as of this encounter Goals Goal Patient Goal Type Associated Problems Recent Progress Patient-Stated? 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 8:09 AM RETENTION SPECIALIST) No Alisa Jaramillo HEMOGLOBIN A1C < 7.0 Result Component 5.4( 12:00 AM CDT) No Alisa Jaramillo documented as of this encounter Visit Diagnoses Not on filedocumented in this encounter Care Teams Metal Cutter Relationship Specialty Start [place] [address] [facility] [address] [place] [address] PCP - General Internal Medicine 03/31/18 05/30/22 Asha Narvaez, MAINTENANCE REPRESENTATIVE-FLORAL SPECIALIST [address] [facility] [address] [place] [address] PCP - Attributed-MSSP 08/17/20 10/16/20 Etienne Florez MD Orthopedic Surgery 12/09/14 [place] [address] [phone] Oncology 09/15/17 [place] [address] [phone] Neurology 06/26/18 [place] [address] [facility] [address] [place] [address] Cardiovascular Disease 06/26/18 [place] [address] [id number] Pulmonary Disease 06/26/18 Yuliya Ibarra MD [address] [facility] [address] [place] [phone] Endocrinology 06/26/18 Phuong Callejas DPM [address] [place], [place] [id number] Podiatry 06/26/18 Sy Barrientos MD [address] [place] [address] [place] [address] Ophthalmology 06/26/18 [place] [address] [address] Pulmonary Disease 06/26/18 Rico Gasca MD [address] [facility] [address] [place] [address] Urology 06/26/18 Elle Landaverde MD [address] [facility] [address] [place] [address] Vascular Surgery 06/26/18 Kirk Truong MD [address] [facility] [address] [place] [address] Gastroenterology 06/26/18 [place] [address] [place] [address] General Surgery 06/26/18 documented as of this encounter
--- OUTSIDE RECORDS SUMMARY | 2024-05-26 12:36 | XMS_ITS | Encounter Summary ---
Author Organization [facility] Address [address] [facility] [place] [address] Care Team Providers Care Railroad Shop Inspector Name Role Phone Etienne Florez MD Unavailable Enrique Gonzalez MD Unavailable [phone] Theresa Camargo MD Primary Care Provider Nelson Ross MD Unavailable Laz Valencia MD Unavailable Russell Moran MD Unavailable [phone] Yuliya Ibarra MD Unavailable [phone] Phuong Callejas DPM Unavailable Sy Barrientos MD Unavailable [phone] Russell Moran MD Unavailable Rico Gasca MD Unavailable Elle Landaverde MD Unavailable [phone] Kirk Truong MD Unavailable [phone] Shira Love DO Unavailable [phone] Asha Narvaez [facility] Unavailable [phone] Reason for Visit * Reason Onset Date Comments Question 09/22/2020 Encounter Details Date Type Department Care Team (Late st Contact Info) Description 09/22/2020 Telephone [facility] Orthopedics [address] [facility], [address] [place] [address] [place] [address] [facility] [address] [place] [address] Question Social History Tobacco Use [...] encounter Miscellaneous Notes * Telephone Encounter - Ben Renner - 09/22/2020 3:56 PM CDT Call patient on Friday with information about the [phone] Ange daughter form hospital visit 09/14/20. [address] [place] [address] documented in this encounter Plan of Treatment Not on file documented as of this encounter Goals Goal Patient Goal Type Associated Problems Recent Progress Patient-Stated? 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 8:09 AM HAND ZIPPER TRIMMER) No Alisa Jaramillo HEMOGLOBIN A1C < 7.0 Result Component 5.4( 12:00 AM CDT) No Alisa Jaramillo documented as of this encounter Visit Diagnoses Not on filedocumented in this encounter Care Teams Railroad Shop Inspector Relationship Specialty Start [place] [address] [facility] [address] [place] [address] PCP - General Internal Medicine 03/31/18 05/30/22 Asha Narvaez, WATER HAULER-REIMBURSEMENT COUNSELOR [address] [facility] [address] [place] [address] PCP - Attributed-MSSP 08/17/20 10/16/20 Etienne Florez MD Orthopedic Surgery 12/09/14 [place] [address] [facility] [address] [place] [address] Oncology 09/15/17 [place] [address] [phone] Neurology 06/26/18 [place] [address] [facility] [address] [place] [address] Cardiovascular Disease 06/26/18 [place] [address] [address] Pulmonary Disease 06/26/18 Yuliya Ibarra MD [address] [place] [address] Endocrinology 06/26/18 Phuong Callejas DPM [address] [place], [place] [address] Podiatry 06/26/18 Sy Barrientos MD [address] [place] [address] [place] [address] Ophthalmology 06/26/18 [place] [address] [address] Pulmonary Disease 06/26/18 Rico Gasca MD [address] [place] [address] Urology 06/26/18 Elle Landaverde MD [address] [facility] [address] [place] [address] Vascular Surgery 06/26/18 Kirk Truong MD [address] [place] [address] Gastroenterology 06/26/18 [place] [address] [place] [address] General Surgery 06/26/18 documented as of this encounter
--- OUTSIDE RECORDS SUMMARY | 2024-05-26 12:36 | XMS_ITS | Encounter Summary ---
Author Organization [facility] Address [address] [facility] [place] [address] Care Team Providers Care Pharmacology Professor Name Role Phone Etienne Florez MD Unavailable [phone] Enrique Gonzalez MD Unavailable [phone] Theresa Camargo MD Primary Care Provider Nelson Ross MD Unavailable Laz Valencia MD Unavailable Russell Moran MD Unavailable [phone] Yuliya Ibarra MD Unavailable Phuong Callejas DPM Unavailable Sy Barrientos MD Unavailable Russell Moran MD Unavailable [phone] Rico Gasca MD Unavailable Elle Landaverde MD Unavailable Kirk Truong MD Unavailable [phone] Shira Love DO Unavailable [phone] Asha Narvaez [facility] Unavailable [phone] Encounter Details Date Type Department Care Team (Latest Contact Info) Description 09/25/2020 Travel Social History Tobacco Use Types Packs/Day [...] No 09/15/2020 documented as of this encounter Plan of Treatment Not on file documented as of this encounter Goals Goal Patient Goal Type Associated Problems Recent Progress Patient-Stated? 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 8:09 AM MARKER MACHINE) No Alisa Jaramillo HEMOGLOBIN A1C < 7.0 Result Component 5.4( 12:00 AM CDT) No Alisa Jaramillo documented as of this encounter Visit Diagnoses Not on filedocumented in this encounter Care Teams Pharmacology Professor Relationship Specialty Start [place] [address] [address] PCP - General Internal Medicine 03/31/18 05/30/22 Asha Narvaez, CHIEF STATION ENGINEER-CARBON ROD INSERTER [address] [facility] [address] [place] [address] PCP - Attributed-MSSP 08/17/20 10/16/20 Etienne Florez MD Orthopedic Surgery 12/09/14 [place] [address] [facility] [address] [place] [address] Oncology 09/15/17 [place] [address] [facility] [address] [place] [address] Neurology 06/26/18 [place] [address] [facility] [address] [place] [address] Cardiovascular Disease 06/26/18 [place] [address] [id number] Pulmonary Disease 06/26/18 Yuliya Ibarra MD [address] [facility] [address] [place] [address] Endocrinology 06/26/18 Phuong Callejas DPM [address] [place], [place] [address] Podiatry 06/26/18 Sy Barrientos MD [address] [place] [address] [place] [address] Ophthalmology 06/26/18 [place] [address] [place] [address] [place] [address] Pulmonary Disease 06/26/18 Rico Gacsa MD [address] [facility] [address], [place] [address] Urology 06/26/18 Elle Landaverde MD [address] [facility] [address], [place] [address] Vascular Surgery 06/26/18 Kirk Truong MD [address] [facility] [address], [place] [address] Gastroenterology 06/26/18 [place] [address] [place] [address] General Surgery 06/26/18 documented as of this encounter
--- OUTSIDE RECORDS SUMMARY | 2024-05-26 12:36 | XMS_ITS | Encounter Summary ---
Author Organization [facility] Address [address] [place] [address] Care Team Providers Care Slab Off Mill Tender Name Role Phone Etienne Florez MD Unavailable Enrique Gonzalez MD Unavailable [phone] Theresa Camargo MD Primary Care Provider Nelson Ross MD Unavailable [phone] Laz Valencia MD Unavailable Russell Moran MD Unavailable [phone] Yuliya Ibarra MD Unavailable Phuong Callejas DPM Unavailable [phone] Sy Barrientos MD Unavailable Russell Moran MD Unavailable [phone] Rico Gasca MD Unavailable Elle Landaverde MD Unavailable Kirk Truong MD Unavailable Shira Love DO Unavailable [phone] Asha Narvaez [facility] Unavailable [phone] Reason for Visit * Reason Comments Shortness of Breath c/o sob. sent to ed by to rule out pnuemonia * Auth/Cert Specialty Diagnoses / Procedures Referred By Contac t Referred To Contact Referral ID Status Reason Start Date Expiration Date Visits Re quested Visits Authorized [id number] 1 1 Encounter Details Date Type Department Care Team (Latest Contact Info) Description 09/26/2020 2:28 PM CDT - 10/04/2020 3:59 PM CDT Hospital Encounter [facility] [address] [place] [id number] Emily Cedeno MD [address] [place] [address] Mahad Walsh MD Need updated address [place] MD [id number] [place] [address] [place] [address] Hrei Kaba MD [id number] [place] [address] [place] [address] Internal Medicine Discharge Disposition: Home Health Care Svc [...] Sign Reading Time Taken Comments Blood Pressure 106/53 10/04/2020 8:27 AM CDT Pulse 65 10/04/2020 8:27 AM CDT Temperature 36.4 ??C (97.6 ??F) 10/04/2020 8:27 AM CD T Respiratory Rate 16 10/04/2020 8:27 AM CDT Oxygen Saturation 92% 10/04/2020 10:42 AM CDT Inhaled Oxygen Concentration - - Weight 79.4 kg (175 lb) 09/27/2020 12:31 AM CDT Height 165.1 cm (5' 5 ) 09/27/2020 12:31 AM CDT Body Mass Index 29.12 09/27/2020 12:31 AM CDT documented in this encounter Functional [...] No 09/27/2020 documented as of this encounter Discharge Summaries * Heri Kaba MD - 10/04/2020 11:46 AM CDT Physician Discharge Summary Patient Name: Loc Leon Date of : 1940 Admit date: 09/26/2020 Discharge date:10/04/2020 Admitting Physician: Heri Kaba MD Attending Physician: Heri Kaba MD Discharge Physician: Heri Kaba MD Discharge Diagnosis: acute hypoxemic respiratory failure, large saddle embolism, Hyponatremia, DM-II, hypothyroidism, H/o breast ca, HLD, Diagnostic Studies See notes Treatments See notes Procedures See notes Consults Cardiology Pulmonary P/E General appearance: alert, cooperative, no distress Heart: regular rhythm, normal S1 and S2, without murmurs, rubs or gallops Lungs: breath sounds normal and symmetric; no rales or wheezes Abdomen: soft without mass, non-tender, with normal bowel sounds Extremities: no clubbing, 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 Cranial nerves 2-12 grossly normal. Power tone all 4 extremeties normal Brief Hospital Course 79 year old??year old ??female with a PMH??of asthma, A.fib not on anticoag, breast cancer, CAD, DM2, duodenal ulcer, glaucoma, TIA, hereditary spastic paraplegia, HTN, neuropathy, chronic schmitt, hypothyroid, CATY??who was admitted on??09/26/2020??secondary to SOB due to Saddle Pulmonary Embolism 1. Acute large saddle embolism with possible RV strain: on heparin drip. Will consult with IVR for Possible EKOS providing the fact that she had gluteus hematoma 1 week ago. For EHCO to confirm RV strain. ?? BNP is mildly elevated at 200 and troponin is 0.08 ?? 2. Acute hypoxic respiratory failure 2ry to PE: on 1-2 L/min ?? 3. Hyponatremia: mild. On IV fludis, stopped diuretics. ?? 4. DM II: on insulin regimen. Controlled ?? 5. Hypothyroidism: on home meds ?? 6. Hx of Breast cancer: ?? 7. HLD: on statin ?? 8. 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 ?? 9. HTN: hold HTN meds. ?? 10. GERD: on home meds ?? 11.Hx of TIA: was on plavix before ?? 12. Recent Glueus muscle hematoma. ?? 13. Hypercalcemia: for workup ?? 14. LETA: for workup ?? 15. Primary hyperparathyroidism: Vitamin D and calcium ?? Summary and daily updates: 09/27: For venous doppler, ECHO, heparin, venous doppler, transfer to intermediate unit. ?? Discussed with IVR and cardiology, EKOS might be risky now with a previous recent hematoma. Will monitor and obtain ECHO and decide. Her associate counsel is Dr. Valencia, , he is referring to Dr. Maya. ?? 09/28: For mechanical suction thrombectomy today as RV is very dilated. Continue heparin. Sent for workup for hypercalcemia and LETA. Stable VS and labs, on room air today ?? 09/29: Severe LETA, iron IV, FOBT is pending. Hypercalcemia: low vitamin D, highPTH, primary hyperparathyroidism, added vitamin D and calcium andmonitor calcium level, corrected calcium is 10 today., calcium is. For osteoporosis. ?? Venous doppler is negative, switch to Eliquis. No need for IVC filter. Repeat limited ECHO to asses RV today, if ok then discharge home. PT/OT for HH. ?? UTI grew E.Coli and enterococcus fecalis, switched to amoicillin ?? 09/30: Weak and SOB upon ambulation. PT/OT, continue Eliquis, for a repeated limited ECHO to assess RV functions ?? Amoxicillin for UTI with Enteorcoccus ad E.Coli for 5 days ?? LETA, infused iron, FOBT is pending ?? Calcium and vitamin D for Hyperparathyroidism, PT/OT and possible SNF placement. ? 10/01: Limited ECHO shwoed reduced RV systolic function and mild to moderate dilatation. Stable VS on Eliquis. No change in the ECHO ?? Had severe chest pain yesterday, troponin and EKG are ok, sent for CTA stat but not done yet! Stable VS. For LExiscan tomorrow as CTA is good with continued RV dilatation ?? Continue amoxicillin ?? FOBT is pending. ?? PT and placement ?? 10/02: Stable, no new issues Pending lexiscan Pending PT/OT eval. Eliquis lfelong. Vitamin D and calcium FOBT is pending. Still constipated despite all the laxatives. For KUB 10/03 Patient condition remains stable Stress test unremarkable Patient stated at baseline she moves her bowel once every 2 weeks Patient H and H remained stable and no need for FOBT Tapered oxygen to room air PT/OT evaluation is awaited for discharge 10/04 Patient feeling by much better Did very well with physical therapy Requesting discharge home Condition at discharge: stable Disposition: home with home health care Code Status At Discharge Full code Patient Instructions Current Discharge Medication List START taking these medications Instructions Authorizing Provider apixaban 5 MG tablet Commonly known as: Eliquis Quantity Dispensed: 65 tablet Start taking on: October 06, 2020 Take 2 (two) tablets by mouth 2 times daily Take 10 mg po bid till 10/05 and then continue 5 mg po bid there after Heri Kaba MD calcium-vitamin D 500-200 mg-unit tablet Commonly known as: Os-Mckenna 500 + D Take 1 (one) tablet by mouth 2 times daily with morning and evening meal Ryan He MD CONTINUE taking these medications which have NOT [...] Dispensed: 90 capsule TAKE 1 CAPSULE DAILY Thereas Camargo MD flecainide 50 MG tablet Commonly [...] % opthalmic solution Generic drug: bromfenac Sodium Instill 1 drop into right eye once daily rosuvastatin 10 MG tablet Commonly known as: [...] Take 1,000 Units by mouth once daily Discharge Procedure Orders Referral for Durable Medical Equipment (DME) - Home Oxygen Extended Emergency Contact Information Primary Emergency Contact: Thiago Leon Address: [address] Relation: Spouse Secondary Emergency Contact: Jaymie [facility] Mobile Relation: Daughter Payor: MEDICARE / Plan: MEDICARE PART A AND B / Product Type: Medicare / Order Specific Question Answer Comments Patient's requirements assessed and meets justification criteria Yes Estimated length of need Lifetime DME Supply Ordered Oxygen Home Use Oxygen Stationary or Portable tanks Stationary and Portable Tanks Delivery Device Nasal Cannula Oxygen Prescription Continuous Continuous (liters/min) 1 EJECTION FRACTION MEASURED Follow up Instructions Please continue to wear your home cpap/bipap during times of sleepiness, unless otherwise instructed. Some medications that you may have been prescribed or were used during a procedure may increase the chance of sleep apnea complications. Why you were hospitalized Order Specific Question Answer Comments Your discharge diagnosis is: Acute cor pulmonale due to saddle embolus of pulmonary artery [5736339] Daily weights -- Immediately upon admission, obtain baseline weight and write on log. -- Weigh patient daily, in similar clothing, after urinating and before breakfast. -- Call attending provider if patient has a weight gain of more than 2-3 pounds in one day or 4-5 pounds in 5 days. Follow up with Primary Care Provider (PCP) Our records show your Primary Care Provider (PCP) is Theresa Camargo MD. Order Specific Question Answer Comments Follow Up Instructions: in 2 weeks Cardiac (heart-healthy) diet -- Limit your sodium to 2 grams per day. -- Limit the amount of fat you eat to 60 grams (low fat) per day. -- Low cholesterol Activity as tolerated Rest today, and increase your activity level tomorrow as tolerated. Start home oxygen -- Use oxygen continuously. -- Flow rate: 1 L/min Follow up with provider Why you were hospitalized Order Specific Question Answer Comments Your discharge diagnosis is: Acute cor pulmonale due to saddle embolus of pulmonary artery [[id number]] Daily weights -- Immediately upon admission, obtain baseline weight and write on log. -- Weigh patient daily, in similar clothing, after urinating and before breakfast. -- Call attending provider if patient has a weight gain of more than 2-3 pounds in one day or 4-5 pounds in 5 days. Follow up with Primary Care Provider (PCP) Our records show your Primary Care Provider (PCP) is Theresa Camargo MD. Order Specific Question Answer Comments Follow Up Instructions: in 1-2 weeks Total time spent was 35 minutes to review medications and place discharge orders/instructions and explain the discharge plan D/c summary note was faxed to PCP via the [employer] system CC: Theresa Camargo MD * Ryna He MD - 09/29/2020 12:43 PM CDT Images from the original note were not included. Physician Discharge Summary Patient ID: Loc Leon [id number] 79 year old 1940 Admit date: 09/26/2020 Discharge date and time: 09/29/2020 Admitting Physician: Ryan He MD Discharge Physician: Ryan He MD Admission Diagnoses: 1. Acute large saddle embolism with possible RV strain 2. Acute hypoxic respiratory failure 2ry to PE 3. Hyponatremia 4. DM II 5. Hypothyroidism 6. Hx of Breast cancer 7. HLD 8. Hereditary spastic paraplegia 9. HTN 10. GERD 11.Hx of TIA 12. Recent Glueus muscle hematoma. 13. Primary hyperparathyroidism with mild Hypercalcemia 14. LETA 15. Primary hyperparathyroidism Discharge Diagnoses: 1. Acute large saddle embolism with possible RV strain 2. Acute hypoxic respiratory failure 2ry to PE 3. Hyponatremia 4. DM II 5. Hypothyroidism 6. Hx of Breast cancer 7. HLD 8. Hereditary spastic paraplegia 9. HTN 10. GERD 11.Hx of TIA 12. Recent Glueus muscle hematoma. 13. Primary hyperparathyroidism with mild Hypercalcemia 14. LETA 15. Primary hyperparathyroidism Admission Condition: poor Discharged Condition: good Indication for Admission: Saddle PE Hospital Course: Admitted with saddle PE and RV strain. Mechanicl thrombectomy done by IVR and she improved. Discharged on Eliquis for life long because of imnpaired mobility and neuropathy. Also found to have primary hyperparathyroidism and LETA. Given Vitamin D and Calcium supplements, Iron IV full dose. And refer Aida for FOBT as it is still pending. Given home oxygen at 1 L/min continously as she desats to 87% on room air Consults: Cardiology, Interventional Radiology Significant Diagnostic Studies: See hospital course Treatments: See hospital course Discharge Exam: General appearance: alert, cooperative, no distress Heart: regular rhythm, normal S1 and S2, without murmurs, rubs or gallops Lungs: breath sounds normal and symmetric; no rales or wheezes Abdomen: soft without mass, non-tender, with normal bowel sounds Extremities: no clubbing, cyanosis or edema Disposition: Home, Home health Patient Instructions: Current Discharge Medication List START taking these medications Instructions Authorizing Provider * apixaban 5 MG tablet Commonly known as: Eliquis Quantity Dispensed: 28 tablet Take 2 (two) tablets by mouth 2 times daily for 7 days Ryan He MD * apixaban 5 MG tablet Commonly known as: Eliquis Quantity Dispensed: 60 tablet Start taking on: October 06, 2020 Take 1 (one) tablet by mouth 2 times daily Ryan He MD calcium-vitamin D 500-200 mg-unit tablet Commonly known as: Os-Mckenna 500 + D Take 1 (one) tablet by mouth 2 times daily with morning and evening meal Ryan He MD * This list has 2 medication(s) that are the same as other medications prescribed for you. Read thedirections carefully, and ask your doctor or other care provider to review them with you. CONTINUE taking these medications which have NOT [...] % opthalmic solution Generic drug: bromfenac Sodium Instill 1 drop into right eye once daily rosuvastatin 10 MG tablet Commonly known as: [...] Take 1,000 Units by mouth once daily Activity: activity as tolerated Diet: Mediterranean diet, Diabetic diet, Low fat, low cholesterol, low sodium Wound Care: None needed Follow-up with primary care physician in 3 weeks. Discharge process duration is 30 minutes Signed: Ryan He MD 09/29/2020 12:43 PM Cc: Theresa Camargo MD documented in this encounter Discharge Instructions * Discharge Instructions* Mine Cleaning RN - 10/04/2020 11:06 AM CDT Images from the original note were not included. Patient Education Heart Failure WHAT YOU NEED TO KNOW: What is heart failure? Heart failure is a condition that does not allow your heart to fill or pump properly. Your heart cannot pump enough oxygen in your blood to your organs and tissues. Fluid may not move through your body properly. Fluid builds up and causes swelling and trouble breathing. This is known as congestive heart failure. Heart failure may start in the left or right ventricle. Heart failure is a long-term condition that tends to get worse over time. It is important to manage your health to improve your quality of life. What are the signs and symptoms of heart failure? The signs and symptoms depend on how severe your heart failure is. You may have any of the following: ?? Trouble breathing with activity that worsens to trouble breathing at rest ?? Shortness of breath while lying flat ?? Severe shortness of breath and coughing at night that usually wakes you ?? Feeling lightheaded when you stand up ?? Purple color around your mouth and nails ?? Confusion or anxiety ?? Chest pain at night ?? Periods of no breathing, then breathing fast ?? Lack of energy (often worsened by physical activity), or trouble sleeping ?? Swelling in your ankles, legs, or abdomen ?? Heartbeat that is fast or not regular ?? Fingers and toes feel cool to the touch How is heart failure diagnosed? Tell your healthcare provider about your health history and the medicines you take. He or she will ask about your shortness of breath and other symptoms. You may need any of the following: ?? Blood tests are used to check for heart problems such as coronary artery disease or decreased blood flow. Blood tests also give healthcare providers information about your kidney, liver, and thyroid function. The results can also show an infection. ?? An EKG test records your heart rhythm and how fast your heart beats. It shows healthcare providers if you have heart block or have had a heart attack. ?? Echocardiogram is a type of ultrasound. Sound waves are used to show the structure and function of your heart. This test may show if there are problems with your heart valves. It may also show if the chambers of your heart are working properly. ?? X-ray, CT, or MRI pictures may be taken of your heart and lungs. The pictures may show the causeof your heart failure, or blood clots or fluid in your lungs. You may be given contrast liquid to help your heart show up better in the pictures. Tell the healthcare provider if you have ever had an allergic reaction to contrast liquid. Do not enter the MRI room with anything metal. Metal can causeserious injury. Tell the provider if you have any metal in or on your body. How is heart failure treated? Your healthcare providers will help you manage any other health conditions that may be causing your heart failure. The goals of treatment are to manage, slow, or reverseheart damage. Treatment may include any of the following: ?? Medicines may be given to help regulate your heart rhythm and lower your blood pressure. You may also need medicines to help decrease extra fluids. Medicines, such as NSAIDs, may be stopped if they are causing your heart failure to become worse. Do not stop any of your medicines on your own. ?? Cardiac rehab is a program run by specialists who will help you safely strengthen your heart. Inthe program you will learn about exercise, relaxation, stress management, and heart-healthy nutrition. Cardiac rehab may be recommended if your heart failure is not severe. ?? Oxygen may help you breathe easier if your oxygen level is lower than normal. A CPAP machine maybe used to keep your airway open while you sleep. ?? Surgery can be done to implant a pacemaker or another device in your chest to regulate your heart rhythm. Other types of surgery can open blocked heart vessels, replace a damaged heart valve, or remove scar tissue. What can I do to manage swelling from extra fluid? ?? Elevate (raise) your legs above the level of your heart. This will help with fluid that builds up in your legs or ankles. Elevate your legs as often as possible during the day. Prop your legs on pillows or blankets to keep them elevated comfortably. Try not to stand for long periods of time during the day. Move around to keep your blood circulating. ?? Limit sodium (salt). Ask how much sodium you can have each day. Your healthcare provider may give you a limit, such as 2,300 milligrams (mg) a day. Your provider or a dietitian can teach you how to read food labels for the number of mg in a food. He or she can also help you find ways to have less salt. For example, if you add salt to food as you cook, do not add more at the table. ?? Drink liquids as directed. You may need to limit the amount of liquid you drink within 24 hours.Your healthcare provider will tell you how much liquid to have and which liquids are best for you. He or she may tell you to limit liquid to 1.5 to 2 liters in a day. He or she will also tell you howoften to drink liquid throughout the day. ?? Weigh yourself every morning. Use the same scale, in the same spot. Do this after you use the bathroom, but before you eat or drink. Wear the same type of clothing each time. Write down your weight and call your healthcare provider if you have a sudden weight gain. Swelling and weight gain are signs of fluid buildup. What can I do to manage heart failure? Your quality of life may improve with treatment and the following: ?? Do not smoke. Nicotine and other chemicals in cigarettes and cigars can cause lung and heart damage. Ask your healthcare provider for information if you currently smoke and need help to quit. E-cigarettes or smokeless tobacco still contain nicotine. Talk to your healthcare provider before you use these products. ?? Do not drink alcohol or use illegal drugs. Alcohol and drugs can increase your risk for high blood pressure, diabetes, and coronary artery disease. ?? Eat heart-healthy foods. Heart-healthy foods include fruits, vegetables, lean meat (such as beef, chicken, or pork), and low-fat dairy products. Fatty fish such as salmon and tuna are also heart healthy. Other heart-healthy foods include walnuts, whole-grain breads, beans, and cooked beans. Replace butter and margarine with heart-healthy oils such as olive oil or canola oil. Your provider or adietitian can help you create heart-healthy meal plans. ?? Manage any chronic health conditions you have. These include high blood pressure, diabetes, obesity, high cholesterol, metabolic syndrome, and COPD. You will have fewer symptoms if you manage these health conditions. Follow your healthcare provider's recommendations and follow up with him or herregularly. ?? Maintain a healthy weight. Being overweight can increase your risk for high blood pressure, diabetes, and coronary artery disease. These conditions can make your symptoms worse. Ask your healthcare provider how much you should weigh. Ask him or her to help you create a weight loss plan if you are overweight. ?? Stay active. Activity can help keep your symptoms from getting worse. Walking is a type of physical activity that helps maintain your strength and improve your mood. Physical activity also helps you manage your weight. Work with your healthcare provider to create an exercise plan that is right for you. ?? Get vaccines as directed. The flu and pneumonia can be severe for a person who has heart failure. Vaccines protect you from these infections. Get a flu shot every year as soon as it is recommended, usually in January or February. You may also need the pneumonia vaccine. Your healthcare providercan tell you if you need other vaccines, and when to get them. Call your local emergency number (911 in the [place]) if: ?? You have any of the following signs of a heart attack: ? Squeezing, pressure, or pain in your chest ? You may also have any of the following: ?? Discomfort or pain in your back, neck, jaw, stomach, or arm ?? Shortness of breath ?? Nausea or vomiting ?? Lightheadedness or a sudden cold sweat When should I call my doctor? ?? Your heartbeat is fast, slow, or uneven all the time. ?? You have symptoms of worsening heart failure: ? Shortness of breath at rest, at night, or that is getting worse in any way ? Weight gain of 3 or more pounds (1.4 kg) in a day, or more than your healthcare provider says is okay ? More swelling in your legs or ankles ? Abdominal pain or swelling ? More coughing ? Feeling tired all the time ?? You feel hopeless or depressed, or you have lost interest in things you used to enjoy. ?? You often feel worried or afraid. ?? You have questions or concerns about your condition or care. CARE AGREEMENT: You have the right to help plan your care. Learn about your health condition and how it may be treated. Discuss treatment options with your healthcare providers to decide what care you want to receive. You always have the right to refuse treatment. The above information is an private duty aide only. It is not intended as medical advice for individual conditions or treatments. Talk to your doctor, nurse or pharmacist before following any medical regimen to see if it is safe and effective for you. ?? Copyright [employer] 2020 Information is for End User's use only and may not be sold, redistributed or otherwise used for commercial purposes. All illustrations and images included in CareNotes?? are the copyrighted property of [employer] or [employer] Patient Education Heart Failure WHAT YOU NEED TO KNOW: Heart failure is a condition that does not allow your heart to fill or pump properly. Not enough oxygen in your blood gets to your organs and tissues. Fluid may not move through your body properly. Fluid builds up and causes swelling and trouble breathing. This is known as congestive heart failure.Heart failure may start in the left or right ventricle. Heart failure is often caused by damage or injury to your heart. The damage may be caused by other heart problems, diabetes, or high blood pressure. The damage may have also been caused by an infection. Heart failure is a long-term condition that tends to get worse over time. It is important to manage your health to improve your quality of li fe. DISCHARGE INSTRUCTIONS: Call your local emergency number (911 in the [place]) if: ?? You have any of the following signs of a heart attack: ? Squeezing, pressure, or pain in your chest ? You may also have any of the following: ?? Discomfort or pain in your back, neck, jaw, stomach, or arm ?? Shortness of breath ?? Nausea or vomiting ?? Lightheadedness or a sudden cold sweat Call your doctor if: ?? Your heartbeat is fast, slow, or uneven all the time. ?? You have symptoms of worsening heart failure: ? Shortness of breath at rest, at night, or that is getting worse in any way ? Weight gain of 3 or more pounds (1.4 kg) in a day, or more than your healthcare provider says is okay ? More swelling in your legs or ankles ? Abdominal pain or swelling ? More coughing ? Loss of appetite ? Feeling tired all the time ?? You feel hopeless or depressed, or you have lost interest in things you used to enjoy. ?? You often feel worried or afraid. ?? You have questions or concerns about your condition or care. Medicines: ?? Medicines may be given to help regulate your heart rhythm and lower your blood pressure. You mayalso need medicines to help decrease extra fluids. Medicines, such as NSAIDs, may be stopped if they are causing your heart failure to become worse. Do not stop any of your medicines on your own. ?? Take your medicine as directed. Contact your healthcare provider if you think your medicine is not helping or if you have side effects. Tell him or her if you are allergic to any medicine. Keep a list of the medicines, vitamins, and herbs you take. Include the amounts, and when and why you take them. Bring the list or the pill bottles to follow-up visits. Carry your medicine list with you in case of an emergency. Go to cardiac rehab if directed: Cardiac rehab is a program run by specialists who will help you safely strengthen your heart. In the program you will learn about exercise, relaxation, stress management, and heart-healthy nutrition. Manage swelling from extra fluid: ?? Elevate (raise) your legs above the level of your heart. This will help with fluid that builds up in your legs or ankles. Elevate your legs as often as possible during the day. Prop your legs on pillows or blankets to keep them elevated comfortably. Try not to stand for long periods of time during the day. Move around to keep your blood circulating. ?? Limit sodium (salt). Ask how much sodium you can have each day. Your healthcare provider may give you a limit, such as 2,300 milligrams (mg) a day. Your provider or a dietitian can teach you how to read food labels for the number of mg in a food. He or she can also help you find ways to have less salt. For example, if you add salt to food as you cook, do not add more at the table. ?? Drink liquids as directed. You may need to limit the amount of liquid you drink within 24 hours.Your healthcare provider will tell you how much liquid to have and which liquids are best for you. He or she may tell you to limit liquid to 1.5 to 2 liters in a day. He or she will also tell you howoften to drink liquid throughout the day. ?? Weigh yourself every morning. Use the same scale, in the same spot. Do this after you use the bathroom, but before you eat or drink. Wear the same type of clothing each time. Write down your weight and call your healthcare provider if you have a sudden weight gain. Swelling and weight gain are signs of fluid buildup. Manage heart failure: Your quality of life may improve with treatment and the following: ?? Do not smoke. Nicotine and other chemicals in cigarettes and cigars can cause lung and heart damage. Ask your healthcare provider for information if you currently smoke and need help to quit. E-cigarettes or smokeless tobacco still contain nicotine. Talk to your healthcare provider before you use these products. ?? Do not drink alcohol or use illegal drugs. Alcohol and drugs can increase your risk for high blood pressure, diabetes, and coronary artery disease. ?? Eat heart-healthy foods. Heart-healthy foods include fruits, vegetables, lean meat (such as beef, chicken, or pork), and low-fat dairy products. Fatty fish such as salmon and tuna are also heart healthy. Other heart-healthy foods include walnuts, whole-grain breads, beans, and cooked beans. Replace butter and margarine with heart-healthy oils such as olive oil or canola oil. Your provider or adietitian can help you create heart-healthy meal plans. ?? Manage any chronic health conditions you have. These include high blood pressure, diabetes, obesity, high cholesterol, metabolic syndrome, and COPD. You will have fewer symptoms if you manage these health conditions. Follow your healthcare provider's recommendations and follow up with him or herregularly. ?? Maintain a healthy weight. Being overweight can increase your risk for high blood pressure, diabetes, and coronary artery disease. These conditions can make your symptoms worse. Ask your healthcare provider how much you should weigh. Ask him or her to help you create a weight loss plan if you are overweight. ?? Stay active. Activity can help keep your symptoms from getting worse. Walking is a type of physical activity that helps maintain your strength and improve your mood. Physical activity also helps you manage your weight. Work with your healthcare provider to create an exercise plan that is right for you. ?? Get vaccines as directed. The flu and pneumonia can be severe for a person who has heart failure. Vaccines protect you from these infections. Get a flu shot every year as soon as it is recommended, usually in January or February. You may also need the pneumonia vaccine. Your healthcare providercan tell you if you need other vaccines, and when to get them. Follow up with your doctor within 7 days and as directed: You may need to return for other tests. You may need home health care. A healthcare provider will monitor your vital signs, weight, and make sure your medicines are working. Write down your questions so you remember to ask them during your visits. Join a support group: Heart failure can be difficult to manage. It may be helpful to talk with others who have heart failure. You may learn how to better manage your condition or get emotional support. For more information: ?? [employer] [address] [place] [phone] Phone: Web Address: http://www.heart.org ?? Copyright [employer] 2020 Information is for End User's use only and may not be sold, redistributed or otherwise used for commercial purposes. All illustrations and images included in CareNotes?? are the copyrighted property of [employer] or [employer] The above information is an private duty aide only. It is not intended as medical [...] 06/18/2021 apixaban (ELIQUIS) 5 MG tablet Take 2 (two) tablets by mouth 2 times daily Take 10 mg po bid till 10/05 and then continue 5 mg po bid there after 65 tablet 11 10/06/2020 10/12/2020 BD PEN NEEDLE MADDI U/F 32G X [...] as of this encounter Progress Notes * Mine Cleaning, DES - 10/04/2020 3:59 PM CDT Pt discharged with family. Discharge instructions explained to patient and , all questions answered. Per Dr. Kaba, no need for oxygen on discharge and no need for heart failure education. Belongings secured with patient. * Torri Teixeira, PT - 10/04/2020 11:19 AM CDT Physical Therapy Treatment Summary Chart review completed. Nursing consented for PT. Explained purpose of PT and patient consented to participate in therapy. PPE worn by staff: gloves;mask - surgical PPE worn by patient: gown - patient, clean SUBJECTIVE: I'm ready to go home Patient's Goal for the Day: get dressed OBJECTIVE: Orientation Level: Oriented X4 Precautions: falls Bed Mobility: Supine to Sit: Minimal Assistance Sit to Supine: Activity Does Not Occur Transfers: Sit to Stand: Minimal Assistance Stand to Sit: Minimal Assistance Bed to Chair: Minimal Assistance to Right Type of Transfer: Stand Pivot Transfer Activity Tolerance and O2 Requirements: Activity Tolerance: Requires rest breaks O2 DEVICE: Room Air - None Vital Signs: SpO2: 92 % ASSESSMENT: Pt tolerates session well, assisted pt to don clothing for home. Pt continue to requirecues for safety during sit to stand transfer to push from surface. Pt requires mod A to maintain standing balance and pull up depends. Pt requires total to don shoes, which she reports is her baseline and she has assist for at home. Pt transferred to chair, all needs met. Pt will benefit from continued HHPT at d/c to maximize independence and safety with functional mobility. Call light and phone in reach with chair alarm activated. All lines, monitors, IV's, equipment in place and intact pre and post visit. RNVandana, notified of patient's performance/location end of session. Pt educated in PT plan of care, fall precautions, and benefits of OOB activity. PT Joanna Sandhu, present to assist throughout the session. Please refer to the Filed Flowsheet for further details. Refer to Plan of Care for PT goals. RECOMMENDATIONS/PLAN: PT Discharge Recommendations: 24 Hour Supervision;Home Health PT Recommended Transportation Method: Private Car If this is the last Physical Therapy visit, this note serves as the discharge summary. TRISTA Wild, DPT [phone] * Angela Blanc, PharmD - 10/04/2020 11:17 AM CDT [facility] Pharmacy Services Pharmacy Discharge Review I have reviewed the discharge medication orders in [facility]. The patient's pharmacy was called to determine co-pay for new Eliquis prescription. Per [facility] pharmacy, the co-pay for her Pamellaquis will be $0. Thank you for involving me in the care of [facility] Angela Blanc, PharmD 10/04/2020 * Heri Kaba MD - 10/04/2020 8:02 AM CDT Hospitalist Progress Note Admit Date: 09/26/2020 2:28 PM Hospital Day: 8 Clinical Course 79 year old year old female with a PMH of asthma, A.fib not on anticoag, breast cancer, CAD, DM2, duodenal ulcer, glaucoma, TIA, hereditary spastic paraplegia, HTN, neuropathy, chronic schmitt, hypothyroid, CATY who was admitted on 09/26/2020 secondary to SOB due to Saddle Pulmonary Embolism Seen and examined Patient feeling by much Data Vitals: 10/03/20 1607 10/03/20 20310/04/20 0000 10/04/20 0400 BP: 115/58 102/57 119/60 113/55 Pulse: 80 88 79 77 Resp: 17 16 Temp: 97.8 ??F (36.6 ??C) 97.7 ??F (36.5 ??C) 97.8 ??F (36.6 ??C) 97.7 ??F (36.5 ??C) SpO2: 92% 93% 97% 92% Weight: Height: Temp (30hrs) Max:97.8 ??F (36.6 ??C) My review of labs, imaging, notes and other tests is significant for Recent Labs Component Name 10/04/2041610/03/20 0402 10/02/20 0507 WBC 11.1* 11.5* 12.3* HGB 10.7* 10.4* 10.3* HCT 35.7* 34.3* 33.9* PLTCOUNT 261 255 249 Recent Labs Component Name 10/04/20 0417 10/03/20 0402 10/02/20 0507 SODIUM 136 134* 133* POTASSIUM 4.7 4.5 4.6 CHLORIDE 107 106 107 CO2 21* 22* 21* BUN 13 12 11 CREATININE 0.91 0.74 0.76 GLUCOSE 153* 142* 157* CALCIUM 9.8 9.8 10.0 Exam General appearance: alert, cooperative, no distress Heart: regular rhythm, normal S1 and S2, without murmurs, rubs or gallops Lungs: breath sounds normal and symmetric; no rales or wheezes Abdomen: soft without mass, non-tender, with normal bowel sounds Extremities: no clubbing, 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 Cranial nerves 2-12 grossly normal. Power tone all 4 extremeties normal Assessment and Plan 1. Acute large saddle embolism with possible RV strain: on heparin drip. Will consult with IVR for Possible EKOS providing the fact that she had gluteus hematoma 1 week ago. For EHCO to confirm RV strain. BNP is mildly elevated at 200 and troponin is 0.08 2. Acute hypoxic respiratory failure 2ry to PE: on 1-2 L/min 3. Hyponatremia: mild. On IV fludis, stopped diuretics. 4. DM II: on insulin regimen. Controlled 5. Hypothyroidism: on home meds 6. Hx of Breast cancer: 7. 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 9. HTN: hold HTN meds. 10. GERD: on home meds 11.Hx of TIA: was on plavix before 12. Recent Glueus muscle hematoma. 13. Hypercalcemia: for workup 14. LETA: for workup 15. Primary hyperparathyroidism: Vitamin D and calcium Summary and daily updates: 09/27: For venous doppler, ECHO, heparin, venous doppler, transfer to intermediate unit. Discussed with IVR and cardiology, EKOS might be risky now with a previous recent hematoma. Will monitor and obtain ECHO and decide. Her associate counsel is Dr. Valencia, , he is referring to Dr. Maya. 09/28: For mechanical suction thrombectomy today as RV is very dilated. Continue heparin. Sent for workup for hypercalcemia and LETA. Stable VS and labs, on room air today 09/29: Severe LETA, iron IV, FOBT is pending. Hypercalcemia: low vitamin D, highPTH, primary hyperparathyroidism, added vitamin D and calcium andmonitor calcium level, corrected calcium is 10 today., calcium is. For osteoporosis. Venous doppler is negative, switch to Eliquis. No need for IVC filter. Repeat limited ECHO to asses RV today, if ok then discharge home. PT/OT for HH. UTI grew E.Coli and enterococcus fecalis, switched to amoicillin 09/30: Weak and SOB upon ambulation. PT/OT, continue Eliquis, for a repeated limited ECHO to assess RV functions Amoxicillin for UTI with Enteorcoccus ad E.Coli for 5 days LETA, infused iron, FOBT is pending Calcium and vitamin D for Hyperparathyroidism, PT/OT and possible SNF placement. 10/01: Limited ECHO shwoed reduced RV systolic function and mild to moderate dilatation. Stable VS on Eliquis. No change in the ECHO Had severe chest pain yesterday, troponin and EKG are ok, sent for CTA stat but not done yet! Stable VS. For LExiscan tomorrow as CTA is good with continued RV dilatation Continue amoxicillin FOBT is pending. PT and placement 10/02: Stable, no new issues Pending lexiscan Pending PT/OT eval. Eliquis lfelong. Vitamin D and calcium FOBT is pending. Still constipated despite all the laxatives. For KUB 10/03 Patient condition remains stable Stress test unremarkable Patient stated at baseline she moves her bowel once every 2 weeks Patient H and H remained stable and no need for FOBT Tapered oxygen to room air PT/OT evaluation is awaited for discharge 10/04 Patient feeling by much better Did very well with physical therapy Requesting discharge home For discharge today Peripheral IV Anterior;Left Forearm (Active) Placement Date/Time: 09/28/20 1536 Orientation: Anterior;Left Location: Forearm IV Catheter Size: 22 Gauge Technique: Anatomical Landmarks Number of start attempts: 2 Procedure Tolerance: Well Number of days: 5 Peripheral IV Anterior;Right Forearm (Active) Placement Date/Time: 09/29/20 0800 Orientation: Anterior;Right Location: Forearm IV Catheter Size: 22 Gauge Number of start attempts: 1 Local Anesthetic Used?: Trans Dermal Procedure Tolerance: Well Number of days: 5 Peripheral IV Anterior;Left;Upper Arm (Active) Placement Date/Time: 10/01/20 0822 Orientation: Anterior;Left;Upper Location: Arm Name/Credentials of person who placed: Ike Messer RN IV Catheter Length: 1..25 IV Catheter Size: 20 Gauge Data Engineer/Model : Crooks Technique: Anatomical Land... Number of days: 2 Pressure Ulcer Buttock Right (Active) Assessment Date/Assessment Time: 09/30/20 2315 Present on admission?: (c) Yes Location: Buttock Orientation: Right Number of days: 3 Puncture Site Femoral (Active) Date/Time: 09/28/20 0904 Name/Credentials of person who placed: Dr. Marcos Azar Orientation: Right Puncture Site Location: Femoral Puncture Type: Venous Number of days: 5 Indwelling Transurethral Urinary Catheter (Active) No Placement Date or Time found. Existing LDA on arrival from: Outside Facility Number of days: Code Status : Full Code Patients Functional Baseline prior to admit : Full Discharge Planning to Next Site of Care: Based on clinical conditions and medical necessities and after reviewing PT/OT evaluation, family support, patient wishes, and discussion with multidisciplinary care team (manager order, ENVIRONMENTAL AIR SPECIALIST, CSN, Therapy services, Pharmacy, and sock knitting machine operator) the current recommendation for the most appropriate discharge destination at this time is :Home with [facility] Patient is medically cleared for discharge * Melodie Maya MD - 10/04/2020 7:52 AM CDT Cardiology Progress Note Admit Date: 09/26/2020 Hospital Day: 8 Follow up for: Shortness of breath. Symptoms Doing fine this morning. Denies shortness of breath. She does not have chest pain currently. Tele: SR Vital signs Vitals: 10/03/20 1607 10/03/20 2032 10/04/20 0000 10/04/20 0400 BP: 115/58 102/57 119/60 113/55 Pulse: 80 88 79 77 Resp: Temp: 97.8 ??F (36.6 ??C) 97.7 ??F (36.5 ??C) 97.8 ??F (36.6 ??C) 97.7 ??F (36.5 ??C) SpO2: 92% 93% 97% 92% Weight: Height: Intake/Output Summary (Last 24 hours) at 10/04/2020 0752 Last data filed at 10/04/2020 0400 Gross per 24 hour Intake 550 ml Output 2500 ml Net -1950 ml Exam 10/04/2020: Lungs: Clear to auscultation and percussion Heart: S1 and S2 normal. No murmur. No gallop or rub Abdomen: Soft, nontender, bowel sounds active. Extremities: No edema SCHEDULED MEDICATIONS: Followed by 0.9% NaCl injection 3 mL, Intracatheter, q8h amitriptyline (Elavil) tablet 50 mg, Oral, AT BEDTIME amoxicillin (Amoxil) capsule 500 mg, Oral, TID anastrozole (Arimidex) tablet 1 mg, Oral, QDAY apixaban (Eliquis) tablet 10 mg, Oral, BID atorvastatin (Lipitor) tablet 40 mg, Oral, AT BEDTIME bromfenac Sodium (Prolensa) 0.07 % opthalmic solution 1 drop, Right Eye, QDAY calcium-vitamin D (Os-Mckenna 500 + D) 500-200 mg-unit tablet 1 tablet, Oral, BID WC cyanocobalamin (Vitamin B-12) tablet 1,000 mcg, Oral, QDAY dorzolamide (Trusopt) 2 % ophthalmic solution 1 drop, Each Eye, BID flecainide (Tambocor) tablet 50 mg, Oral, BID insulin aspart (NovoLOG) pen 0-6 Units, Subcutaneous, TID WC insulin glargine (Lantus) pen 8 Units, Subcutaneous, AT BEDTIME levothyroxine (Synthroid) tablet 50 mcg, Oral, QDAY BEFORE BREAKFAST pantoprazole EC (Protonix) tablet 40 mg, Oral, AT BEDTIME polyethylene glycol 3350 (Miralax) packet 17 g, Oral, QDAY potassium chloride ER (Klor-Con M) tablet 40 mEq, Oral, QDAY WITH BREAKFAST senna-docusate (Senokot-S) tablet 1 tablet, Oral, BID verapamil CR (Isoptin-SR) tablet 120 mg, Oral, AT BEDTIME vitamin D3-cholecalciferol (Cholecalciferol) 25 MCG (1000 UNITS) tablet 1,000 Units, Oral, QDAY [COMPLETED] lactulose (Chronulac) solution 30 g, Oral, Once [COMPLETED] regadenoson (Lexiscan) injection 0.4 mg, Intravenous, Cardiology Once [] 0.9% NaCl injection 1-10 mL, Intracatheter, intra-Procedure multiple ?? [START ON 10/06/2020] apixaban (Eliquis) tablet 5 mg, Oral, BID ?? CONTINUOUS MEDICATIONS: PRN MEDICATIONS: 0.9% NaCl injection 1-10 mL, Intracatheter, PRN albuterol HFA (Proventil;Ventolin;Proair) 108 (90 Base) MCG/ACT inhaler 2 puff, Inhalation, q4h PRN dextrose IV 12.5-25 g, Intravenous, PRN glucagon (Glucagen) injection 1 mg, Intramuscular, PRN glucose (Diabetic Use) (Dex4 Glucose) oral liquid, Oral, PRN ?? glucose (Diabetic Use) oral gel, Oral, PRN Labs Recent Labs Component Name 10/04/20 0417 10/03/20 0402 10/02/20 0507 SODIUM 136 134* 133* POTASSIUM 4.7 4.5 4.6 CHLORIDE 107 106 107 CO2 21* 22* 21* BUN 13 12 11 CREATININE 0.91 0.74 0.76 GLUCOSE 153* 142* 157* Recent Labs Component Name 09/28/20 0155 09/27/20 0115 12/28/16 1814 PT 13.9 14.1 10.1 INR 1.1 1.1 1.0 Recent Labs Component Name 10/04/20 0417 10/03/20 0402 10/02/20 0507 WBC 11.1* 11.5* 12.3* HGB 10.7* 10.4* 10.3* HCT 35.7* 34.3* 33.9* PLTCOUNT 261 255 249 Recent Labs Component Name 09/26/20 1927 BNP 205* Cardiographics ECG 09/26/20: Normal sinus rhythm with left anterior fascicular block. Septal infarct, age undetermined. Possible Lateral infarct, age undetermined Echocardiogram: ??? Left ventricle is normal in size. ? Normal global systolic left ventricular function. ? EF 60%. ? EF range is 60% - 70%. ? Left ventricle wall thickness is increased. ? There are no regional wall motion abnormalities. ? Doppler parameters are consistent with abnormal left ventricular relaxation (Grade 1 diastolic dysfunction). ?? Right Ventricle: Mildly-moderately dilated right ventricle. Right ventricular wall thickness is normal. Right ventricular systolic function is mildly reduced. Evidence of RV strain noted . Pulmonary artery pressure normal. Vascular bilateral venous doppler 09/29/20: - There is no evidence of an acute deep or superficial venous thrombosis in either the right or left lower extremity. Nuclear Stress Test 10/03/20: Normal myocardial perfusion scan. Assessment: ?? Chest pain, likely from saddle PE / distal thrombi ?? Saddle PE s/p thrombectomy ?? Severe dilated RV with strain; repeat limited echo showed dilated RV but with better contractileactivity. ?? Recent history of gluteal hematoma ?? A-fib now being anticoagulated in the setting of PE ?? Prior left breast malignancy followed by Dr. Gonzalez ?? Hereditary spastic paraplegia with neuropathy ?? Diabetes ?? CAD ?? Plan: ?? No further cardiac work up. ?? Continue anticoagulation. ?? Can follow up with Dr. Valencia as out patient in 2-3 weeks. ?? Okay for discharge today. Melodie Maya MD, [facility] 10/04/2020 * Bonny Moran RN - 10/03/2020 6:04 PM CDT Shift Summary: Pt A & O x4. SR on the monitor. VSS. Pt weaned to RA this shift. Went for Stress test this AM, which was normal. Given lactulose, but no BM noted yet. Chronic schmitt remains in place, 950cc UOP. Dressing to buttocks remains c/d/i. Worked with PT/OT and sat up in chair this afternoon. Will continue to monitor. * Ana Veronica RD/AJAY - 10/03/2020 3:52 PM CDT Nutrition: ?? Pt screened for wounds ?? Patient would benefit from oral nutritional supplements. Will provide oral nutritional supplements to better meet nutritional needs. ?? Nutrition work up in progress. ?? Nutrition assessment to follow. * Gricel Lindsay, BUFFERER-HOME ORGANIZER - 10/03/2020 3:31 PM CDT [facility] Pulmonary Medicine Progress Note Answering Service: [phone] Gricel Lindsay, [facility]- for Dr. Arnold Patient: [facility] Admit Date: 09/26/2020 2:28 PM Hospital Day: 7 Reason for Visit: dyspnea with + saddle PE Subjective Pt seen this afternoon. She was sitting up to chair on room air. No distress at rest. Denies shortness of breath or CHARLES. Recently ambulated with PT on room air. Had stress test done this morning. Data Vitals: 10/03/20 0408 10/03/20 0755 10/03/20 1201 10/03/20 1401 BP: 110/53 103/44 112/62 106/70 Pulse: 71 68 68 Resp: Temp: 97.7 ??F (36.5 ??C) 97.7 ??F (36.5 ??C) 97.8 ??F (36.6 ??C) SpO2: 91% 95% 97% 95% Weight: Height: Temp (30hrs) Max:98 ??F (36.7 ??C) Intake/Output Summary (Last 24 hours) at 10/03/2020 1531 Last data filed at 10/03/2020 0408 Gross per 24 hour Intake -- Output 2450 ml Net -2450 ml Filed Wts: 09/27/20 0031 Weight: 79.4 kg (175 lb) Current Medications Followed by 0.9% NaCl injection 3 mL, Intracatheter, q8h amitriptyline (Elavil) tablet 50 mg, Oral, AT BEDTIME amoxicillin (Amoxil) capsule 500 mg, Oral, TID anastrozole (Arimidex) tablet 1 mg, Oral, QDAY apixaban (Eliquis) tablet 10 mg, Oral, BID atorvastatin (Lipitor) tablet 40 mg, Oral, AT BEDTIME bromfenac Sodium (Prolensa) 0.07 % opthalmic solution 1 drop, Right Eye, QDAY calcium-vitamin D (Os-Mckenna 500 + D) 500-200 mg-unit tablet 1 tablet, Oral, BID WC cyanocobalamin (Vitamin B-12) tablet 1,000 mcg, Oral, QDAY dorzolamide (Trusopt) 2 % ophthalmic solution 1 drop, Each Eye, BID flecainide (Tambocor) tablet 50 mg, Oral, BID insulin aspart (NovoLOG) pen 0-6 Units, Subcutaneous, TID WC insulin glargine (Lantus) pen 8 Units, Subcutaneous, AT BEDTIME levothyroxine (Synthroid) tablet 50 mcg, Oral, QDAY BEFORE BREAKFAST pantoprazole EC (Protonix) tablet 40 mg, Oral, AT BEDTIME polyethylene glycol 3350 (Miralax) packet 17 g, Oral, QDAY potassium chloride ER (Klor-Con M) tablet 40 mEq, Oral, QDAY WITH BREAKFAST senna-docusate (Senokot-S) tablet 1 tablet, Oral, BID verapamil CR (Isoptin-SR) tablet 120 mg, Oral, AT BEDTIME vitamin D3-cholecalciferol (Cholecalciferol) 25 MCG (1000 UNITS) tablet 1,000 Units, Oral, QDAY [COMPLETED] lactulose (Chronulac) solution 30 g, Oral, Once [COMPLETED] regadenoson (Lexiscan) injection 0.4 mg, Intravenous, Cardiology Once [] 0.9% NaCl injection 1-10 mL, Intracatheter, intra-Procedure multiple [START ON 10/06/2020] apixaban (Eliquis) tablet 5 mg, Oral, BID Test Results Reviewed. Recent Labs Component Name 10/03/20 0402 10/02/20 0507 10/01/20 0449 WBC 11.5* 12.3* 12.2* HGB 10.4* 10.3* 10.5* HCT 34.3* 33.9* 34.5* PLTCOUNT 255 249 276 Recent Labs Component Name 10/03/20 0402 10/02/20 0507 10/01/20 0449 SODIUM 134* 133* 134* POTASSIUM 4.5 4.6 4.6 CHLORIDE 106 107 108* CO2 22* 21* 20* BUN 12 11 13 CREATININE 0.74 0.76 0.81 GLUCOSE 142* 157* 170* CALCIUM 9.8 10.0 9.9 ALT 18 18 16 ALKPHOS 99 94 87 AST 16 16 15 TBIL 0.3 0.3 0.2 TPROT 5.7* 5.7* 5.8* EGFR >60 >60 >60 EGFRAFR >60 >60 >60 ALBUMIN 3.2 3.2 3.2 Micro Neg COVID 19 09/26/20 Urine culture 09/27/20 +ecoli, enterococcus faecalis Imaging 09/26/20 CTA chest: 1. 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 2. ??There is leftward intraventricular septal bowing which may represent right heart strain. 09/29 CXR - CM, o/w lungs are clear, no IF/effusions/PTX - NAD. 09/27/20 ECHO: EF 60-70%, grade 1 DD,Mildly-moderately dilated right ventricle, Evidence of RV strain noted 09/30/20 ECHO - LV EF 65-70%, RV systolic function reduced. Limited study 09/28/20 BLE venous doppler- negative 10/03/20 cardiac stress test: normal. EF 75% Procedures PFTs: PRE: none Nocturnal Oximetry: none Peripheral IV Right Antecubital (Active) Placement Date/Time: 09/26/20 1446 Orientation: Right Location: Antecubital Name/Credentials of person who placed: DES Bocanegra IV Catheter Size: 20 Gauge Number of days: 2 Puncture Site Femoral (Active) Date/Time: 09/28/20 0904 Name/Credentials of person who placed: Dr. Marcos Azar Orientation: Right Puncture Site Location: Femoral Puncture Type: Venous Number of days: 0 Indwelling Transurethral Urinary Catheter (Active) No Placement Date or Time found. Existing LDA on arrival from: Outside Facility Number of days: Exam General appearance: alert, cooperative & pleasant, no distress, sitting up to chair on room airwith O2 sat 93% HEENT: EOMI, nares patent. Heart: regular rhythm, normal S1 and S2, systolic murmur noted Lungs: breath sounds symmetric; no rales or wheezes Abdomen: soft, NTND, with normal bowel sounds Extremities: trace edema to BLE, no redness or warmth Neuro: A&O x4, UE strength WNL, LE weakness bilaterally Impression: 1. Dyspnea 2. Acute PE with Rt heart strain- s/p suction thrombectomy 09/28 (Precipitating factors for pulmonary embolism may have included recent hospitalization, relative immobilization due to left hip pain and gluteal hematoma and use of anastrozole which can increase risk for pulmonary embolism. No evidence of active malignancy), hemodynamically stable 3. Recent history Lt gluteal hematoma 4. Mildly elevated troponin in BNP related to acute PE is noted. 5. 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 History of malignant neoplasm Lt breast follows with Dr. Gonzalez on Anastrozole 7. Hereditary spastic paraplegia 8. Neuropathy 9. DM 10. Afib 11. Additional hx, HTN, CAD, hx TIA, hypothyroidism ? Recommendations: 1. Continue on room air for o2 sats >= 90%. Ambulated 30 ft with PT Today on room air with o2 sats maintaining > 90%. 2. S/p suction thrombectomy 09/28/20. Now on PO Eliquis per primary team. Encouraged f/u with hematology, Dr. Gonzalez for anticoagulation management and review of chemo medications given increased riskVTE 3. S/p Venous dopplers 09/28-negative, deferred IVC filter placement 4. Echo with normal EF, right heart strain noted. Stress test negative. 5. abx- on Amoxicilinfor UTI. No need from pulmonary standpoint. 6. Increase activity as tolerates. PT/OT following. Fall risk. Encouraged use of IS 7. Additional medical management per primary team. 8. Ok for discharge from pulmonary standpoint. Can f/u in our office with Dr. Schultz in 2-4 wks. Plan and assessment discussed with Dr. Arnold, PT, pt's spouse at bedside, and pt Associated attestation - Nathanael Arnold MD - 10/03/2020 10:54 PM CDT Patient seen ,examined and plan discussed with ANP. Agree with her recommendation. All pertinent data reviewed personally including labs,images,notes, medications and vitals. Events overnight noted Reason for follow-up is saddle pulmonary embolus 10/02/20 Patient is on oxygen at 2 L saturating 98 percent is going for a stress test today 10/03/20 Patient on room air ambulated [address] scan on October 01 shows resolution of the saddle embolism and less high right heart strain Patient in is concerned about patient's inability to care for herself and need for physicaltherapy, per primary team patient is limited according to the daughter in her activity A dyspnea with acute pulmonary embolism with right heart strain status post suction thrombectomy likely provoked due to several factors including recent hospitalization, relative immobilization and use of anastrozole Recent history of left gluteal hematoma History of atrial fibrillation History of malignant neoplasm of left breast on anastrozole Comorbidities No need for supplemental oxygen observe on room Patient limited in activity at her baseline Incentive spirometry deep breathing Eliquis on discharge okay to discharge from pulmonary standpoint Will follow as needed Nathanael Arnold MD Pulmonary & Sleep Medicine [phone] * Torri Teixeira, PT - 10/03/2020 3:03 PM CDT Physical Therapy Treatment Summary Chart review completed. Nursing consented for PT. Explained purpose of PT and patient consented to participate in therapy. PPE worn by staff: gloves;mask - surgical (Simultaneous filing. User may not have seen previous data.) PPE worn by patient: gown - patient, clean SUBJECTIVE: Pt sitting up in chair upon arrival. No c/o lightheadedness throughout session this date. Patient's Goal for the Day: walk OBJECTIVE: Orientation Level: Oriented x4 Precautions: falls, [place], monitor BP Bed Mobility: Supine to Sit: Activity Does Not Occur Sit to Supine: Activity Does Not Occur Transfers: Sit to Stand: Minimal Assistance Stand to Sit: Minimal Assistance Mobility: Distance Ambulated: 12 FEET (+18) Ambulation: Assistive Device: Gait Belt;Walker-2 Wheeled Ambulation: Level of Assistance: Minimum Assistance;Requires Verbal Cues for Safety;Requires Physical Cues for Safety Ambulation: Gait Deviations: Flaca - Decreased;Base of Support - Decreased;Heel Strike - Decreased;Hip/knee flexion during swing phase-- decreased;Push Off - Decreased;Shuffling gait;Step Length - Decreased Activity Tolerance and O2 Requirements: Activity Tolerance: Requires seated rest breaks (Simultaneous filing. User may not have seen previous data.) O2 DEVICE: Room Air - None Vital Signs: SpO2: 95 % BP: 106/70 (sitting, 104/49 standing, 125/61 post gait) ASSESSMENT: Pt tolerates session well, increased activity tolerance noted this date with pt able toambulate without c/o lightheadedness. BP monitored throughout session and recorded above. Pt on RA and little to no SOB observed, SpO2 remains >90% throughout session. Pt does present as a very high fall risk as she has hereditary spastic paraplegia and is unable to fully clear her feet from thefloor. Pt educated on use of 2 wheeled walker at home as she is currently using her 4 wheeled walker. Spouse issued a gait belt and educated on use at all times when pt is up. Pt educated on pressurerelief techniques for buttocks wound. Pt educated on use of w/c when she is feeling weaker/lightheaded and to always have someone with her. Pt and spouse verbalizes understanding. Call light and phone in reach with chair alarm activated. All lines, monitors, IV's, equipment in place and intact pre and post visit. RNBonny, notified of patient's performance/location end of session. Pt educated in PT plan of care, fall precautions, and benefits of OOB activity. PT Joanna Sandhu, present to assist throughout the session. Please refer to the Filed Flowsheet for further details. Refer to Plan of Care for PT goals. RECOMMENDATIONS/PLAN: PT Discharge Recommendations: 24 Hour Supervision;Home Health PT Recommended Transportation Method: Private Car (Simultaneous filing. User may not have seen previous data.) If this is the last Physical Therapy visit, this note serves as the discharge summary. TRISTA Wild, DPT [phone] * Mami Mendenhall, OT - 10/03/2020 2:58 PM CDT Occupational Therapy Initial Evaluation Orders received. Chart reviewed for diagnosis and medical systems review. Nursing consented for OT. Explained purpose of OT and patient consented to participate in therapy. PPE worn by staff: face shield;gloves;mask - N95;mask - surgical Precautions: Falls Pt admitted due to SOB, bilateral saddle PE. PMH includes asthma, a fib, breast cancer, COPD, DM 2,glaucoma, TIA, hereditary spastic paraplegia, HTN, neuropathy, chronic schmitt, hypothyroidism. SUBJECTIVE: Pt agreeable to participate. Psychosocial: Patient Behaviors: Calm;Cooperative Pt's goal for therapy: Not stated by pt Occupational Profile/PLOF: Pt was indep w/ UB/LB dressing independently, and functional mobility using 4WW. Pt has an aide 5 days/wk. Type of Residence: Private Residence Lives with:: Spouse Home Structure: One Story Steps to Enter: 3 Primary Bedroom: First Floor Primary Bathroom: First Floor Equipment At Home: CPAP;Walker-2 Wheeled;Walker-4 Wheeled with Seat;Grab Bars;Chair-Shower;Scooter-Power;Patient Care, BSC, standard wheelchair Mobility: Ambulate-In Home ;With Assistive Device Fallen Within 6 Mos: 2 Have Help at Home?: Yes, there is help at home now How often is assistance provided?: Assist 5 days/wk, 2 hrs/day Level of Help Sufficient?: Other (Comment) Oxygen at Home: No Activity at Home: Sedentary Vision: Corrected with glasses Hearing Exceptions: Hearing concerns;Corrected with hearing aid Cognition: Orientation Level: Oriented X4 Cognition: Follows Commands-Consistent;Processing-Appropriate;Attention/concentration-normal for age;Safety awareness-appropriate;Judgement-appropriate Pain Assessment: Pain Rating Score #: 0 RUE Assessment: AROM - Right Upper Extremity: Within Functional Limits Strength - Right Upper Extremity: Within Functional Limits Director Meetings Strength: Director Meetings Strength - Right Upper Extremity: WFL LUE Assessment: AROM - Left Upper Extremity: Within Functional Limits Strength - Left Upper Extremity: Within Functional Limits Director Meetings Strength: Director Meetings Strength - Left Upper Extremity: WFL Basic ADL's: Feeding: Complete Christoval Oral Facial Hygiene: Modified Christoval Bathing: Moderate Assistance Upper Body Dressing: Minimal Assistance Lower Body Dressing: Minimal Assistance Toileting: Total Assistance Transfers: Sit to Stand: Minimal Assistance Stand to Sit: Minimal Assistance Vitals: Activity Tolerance: Tolerates sitting more than 5 minutes BP supine 106/70 BP standing 104/49 BP at end of OT sitting in chair 125/61 ASSESSMENT: Pt tolerated OT well. Pt stood mod A x 2, BP checked in standing. Waffle cushion placedin chair. Pt ambulated ~12' min A using FWW w/ w/c follow, took seated rest break, and then ambulated another ~18' min A using FWW. Pt appeared to have increased difficulty moving LLE compared to RLE. Pt did progress to SBA/min A for sit to stand from w/c. Pt denied lightheadedness. Pt states she walks w/ her 4WW, would benefit from FWW for increased safety due to concern w/ remembering to alwayslock her brakes especially w/ high fall risk. Pt would benefit from increased supervision and assistance during the day especially w/ ADLs and HHOT (would benefit from further education on using AE fo r LB dressing). Pt does have a w/c she could use inside the house, demonstrated ability to propel w/c from hallway back to room. OT recommended routine reclining in chair for pressure relief as pt spends significant amount of time in her recliner. Gait belt provided to for safety, aware howto use it. Call light and phone in reach. LEs elevated. All lines, monitors, IV's, equipment in place and intact pre and post visit. RN notified of patient's performance/location end of session. [employer] Cindy, present to assist throughout the session. Educated patient/family in role of OT, POC, ADLs and functional mobility, safety/fall precautions Problem list: Decreased strength, decreased ROM, decreased endurance, decreased balance, impaired functional mobility, decreased coordination, impaired safety awareness, cognitive impairment Functional limitation: Decreased independence with transfers; decreased ability to perform ADLs, decreased UE strength, decreased safety with functional mobility. Rationale for therapy: Patient will benefit from OT to address the above issues. Patient will be seen for: ADL retraining, functional transfers, balance, endurance, exercise. Refer to Plan of Care for OT goals. Refer to filed flow sheet for further details. RECOMMENDATIONS/PLAN: Continue OT OT Discharge Recommendations: Home;Daily Assist;Home Health OT;24 Hour Supervision (Pt is a very high fall risk and requires 24/7 supervision and assistance, should not be home alone) If this is the last Occupational Therapy visit, this serves as the discharge summary. ANN BolañosR/L X [phone] * Bethanie Velasco RN - 10/03/2020 2:26 PM CDT Case Management Progress Note Anticipated level of care at discharge: Home Health Care Discharge Plan: Discharge plan discussed with Dr Kaba in MDRs and plan is Home with support of spouse and continued HHC. Order for HHC is in place, current with [facility]. Spouse provides assistance with mobility and ADLs. Basic Needs Assessment (BNA) Score: 13 Anticipated Discharge Date: Anticipated Discharge Date: 10/04/20 Transportation at Discharge: Family Transportation to MD:Family Equipment at Home: Equipment At Home: CPAP;Walker-2 Wheeled;Wheelchair- Standard;Grab Bars;Walker-4 Wheeled with Seat Additional DME needed: Hunger Screening: Within the past 12 months the food we bought just didn't last and we didn't have money to get more.: Never true Within the past 12 months we worried whether our food would run out before we got money to buy more: Never true Food Bank Resources Provided: Not offered to the patient Medication affordability concerns: No Auth Number (if required) [place]: DME: Medications: Transportation: Name: Bethanie Velasco RN Phone: [phone] * Bonny Moran RN - 10/03/2020 9:08 AM CDT Problem: Fall Risk Goal: Fall risk and fall related injury risk are minimized (interventions related to the fall risk can be found in the flowsheet documentation) 10/03/2020906 by Bonny Moran RN Outcome: Progressing Note: Pt will remain free of falls from now through discharge. 10/02/20201911 by Bonny Moran RN Outcome: Progressing Note: Pt will remain free of falls from now through discharge. Problem: Potential for Urinary Catheter-Associated Infection Goal: Signs and Symptoms of urinary catheter-associated infection are avoided 10/03/2020906 by Bonny Moran RN Outcome: Progressing Note: Schmitt care will be completed at least once per shift. 10/02/20201911 by Bonny Moran RN Outcome: Progressing Problem: Bleeding Precautions Goal: Excessive bleeding will be minimized 10/03/2020906 by Bonny Moran RN Outcome: Progressing 10/02/20201911 by Bonny Moran RN Outcome: Progressing Problem: Pain/Discomfort Goal: Patient exhibits reduced pain/discomfort as evidenced by pain scores 10/03/2020906 by Bonny Moran RN Outcome: Progressing 10/02/20201911 by Bonny Moran RN Outcome: Progressing Problem: Skin Integrity Goal: Skin integrity is maintained or improved 10/03/2020906 by Bonny Moran RN Outcome: Progressing Note: Pt will be turned and repositioned q2h to maintain skin integrity. 10/02/20201911 by Bonny Moran RN Outcome: Progressing Note: Pt will be turned and repositioned frequently to maintain skin integrity. Problem: Tissue injury due to various disease processes Goal: Provide optimal wound healing environment 10/03/2020906 by Bonny Moran RN Outcome: Progressing 10/02/20201911 by Bonny Moran RN Outcome: Progressing * Heri Kaba MD - 10/03/2020 8:58 AM CDT Hospitalist Progress Note Admit Date: 09/26/2020 2:28 PM Hospital Day: 7 Clinical Course Saddle embolism, SOB New Symptoms Patient has no new symptoms Data Vitals: 10/02/20 1958 10/02/20 2315 10/03/20 0408 10/03/20 0755 BP: 117/54 116/51 110/53 103/44 Pulse: 81 79 71 68 Resp: 18 Temp: 97.5 ??F (36.4 ??C) 98 ??F (36.7 ??C) 97.7 ??F (36.5 ??C) 97.7 ??F (36.5 ??C) SpO2: 96% 91% 91% 95% Weight: Height: Temp (30hrs) Max:98 ??F (36.7 ??C) My review of labs, imaging, notes and other tests is significant for Recent Labs Component Name 10/03/20 0402 10/02/20 0507 10/01/20 0449 WBC 11.5* 12.3* 12.2* HGB 10.4* 10.3* 10.5* HCT 34.3* 33.9* 34.5* PLTCOUNT 255 249 276 Recent Labs Component Name 10/03/20 0402 10/02/20 0507 10/01/20 0449 SODIUM 134* 133* 134* POTASSIUM 4.5 4.6 4.6 CHLORIDE 106 107 108* CO2 22* 21* 20* BUN 12 11 13 CREATININE 0.74 0.76 0.81 GLUCOSE 142* 157* 170* CALCIUM 9.8 10.0 9.9 Exam General appearance: alert, cooperative, no distress Heart: regular rhythm, normal S1 and S2, without murmurs, rubs or gallops Lungs: breath sounds normal and symmetric; no rales or wheezes Abdomen: soft without mass, non-tender, with normal bowel sounds Extremities: no clubbing, 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 Cranial nerves 2-12 grossly normal. Power tone all 4 extremeties normal Assessment and Plan 1. Acute large saddle embolism with possible RV strain: on heparin drip. Will consult with IVR for Possible EKOS providing the fact that she had gluteus hematoma 1 week ago. For EHCO to confirm RV strain. BNP is mildly elevated at 200 and troponin is 0.08 2. Acute hypoxic respiratory failure 2ry to PE: on 1-2 L/min 3. Hyponatremia: mild. On IV fludis, stopped diuretics. 4. DM II: on insulin regimen. Controlled 5. Hypothyroidism: on home meds 6. Hx of Breast cancer: 7. 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 9. HTN: hold HTN meds. 10. GERD: on home meds 11.Hx of TIA: was on plavix before 12. Recent Glueus muscle hematoma. 13. Hypercalcemia: for workup 14. LETA: for workup 15. Primary hyperparathyroidism: Vitamin D and calcium Summary and daily updates: 09/27: For venous doppler, ECHO, heparin, venous doppler, transfer to intermediate unit. Discussed with IVR and cardiology, EKOS might be risky now with a previous recent hematoma. Will monitor and obtain ECHO and decide. Her associate counsel is Dr. Valencia, , he is referring to Dr. Maya. 09/28: For mechanical suction thrombectomy today as RV is very dilated. Continue heparin. Sent for workup for hypercalcemia and LETA. Stable VS and labs, on room air today 09/29: Severe LETA, iron IV, FOBT is pending. Hypercalcemia: low vitamin D, highPTH, primary hyperparathyroidism, added vitamin D and calcium andmonitor calcium level, corrected calcium is 10 today., calcium is. For osteoporosis. Venous doppler is negative, switch to Eliquis. No need for IVC filter. Repeat limited ECHO to asses RV today, if ok then discharge home. PT/OT for HH. UTI grew E.Coli and enterococcus fecalis, switched to amoicillin 09/30: Weak and SOB upon ambulation. PT/OT, continue Eliquis, for a repeated limited ECHO to assess RV functions Amoxicillin for UTI with Enteorcoccus ad E.Coli for 5 days LETA, infused iron, FOBT is pending Calcium and vitamin D for Hyperparathyroidism, PT/OT and possible SNF placement. 10/01: Limited ECHO shwoed reduced RV systolic function and mild to moderate dilatation. Stable VS on Eliquis. No change in the ECHO Had severe chest pain yesterday, troponin and EKG are ok, sent for CTA stat but not done yet! Stable VS. For LExiscan tomorrow as CTA is good with continued RV dilatation Continue amoxicillin FOBT is pending. PT and placement 10/02: Stable, no new issues Pending lexiscan Pending PT/OT eval. Eliquis lfelong. Vitamin D and calcium FOBT is pending. Still constipated despite all the laxatives. For KUB 10/03 Patient condition remains stable Stress test unremarkable Patient stated at baseline she moves her bowel once every 2 weeks Patient H and H remained stable and no need for FOBT Tapered oxygen to room air PT/OT evaluation is awaited for discharge Peripheral IV Anterior;Left Forearm (Active) Placement Date/Time: 09/28/20 1536 Orientation: Anterior;Left Location: Forearm IV Catheter Size: 22 Gauge Technique: Anatomical Landmarks Number of start attempts: 2 Procedure Tolerance: Well Number of days: 4 Peripheral IV Anterior;Right Forearm (Active) Placement Date/Time: 09/29/20 0800 Orientation: Anterior;Right Location: Forearm IV Catheter Size: 22 Gauge Number of start attempts: 1 Local Anesthetic Used?: Trans Dermal Procedure Tolerance: Well Number of days: 4 Peripheral IV Anterior;Left;Upper Arm (Active) Placement Date/Time: 10/01/20 0822 Orientation: Anterior;Left;Upper Location: Arm Name/Credentials of person who placed: Ike Messer RN IV Catheter Length: 1..25 IV Catheter Size: 20 Gauge Data Engineer/Model : Crooks Technique: Anatomical Land... Number of days: 2 Pressure Ulcer Buttock Right (Active) Assessment Date/Assessment Time: 09/30/20 231 Present on admission?: (c) Yes Location: Buttock Orientation: Right Number of days: 2 Puncture Site Femoral (Active) Date/Time: 09/28/20 0904 Name/Credentials of person who placed: Dr. Marcos Azar Orientation: Right Puncture Site Location: Femoral Puncture Type: Venous Number of days: 4 Indwelling Transurethral Urinary Catheter (Active) No Placement Date or Time found. Existing LDA on arrival from: Outside Facility Number of days: Code Status : Full Code Patients Functional Baseline prior to admit : Full Discharge Planning to Next Site of Care: Based on clinical conditions and medical necessities and after reviewing PT/OT evaluation, family support, patient wishes, and discussion with multidisciplinary care team (manager order, ENVIRONMENTAL AIR SPECIALIST, CSN, Therapy services, Pharmacy, and sock knitting machine operator) the current recommendation for the most appropriate discharge destination at this time is :Home with [facility] Patient is medically cleared for discharge * Melodie Maya MD - 10/03/2020 8:54 AM CDT Cardiology Progress Note Admit Date: 09/26/2020 Hospital Day: 7 Follow up for: Shortness of breath. Symptoms Complained of chest pain yesterday. Nuclear stress test was ordered and likely getting done today. Tele: SR Vital signs Vitals: 10/02/208 10/02/20 2315 10/03/20 0408 10/03/20 0755 BP: 117/54 116/51 110/53 103/44 Pulse: 81 79 71 68 Resp: Temp: 97.5 ??F (36.4 ??C) 98 ??F (36.7 ??C) 97.7 ??F (36.5 ??C) 97.7 ??F (36.5 ??C) SpO2: 96% 91% 91% 95% Weight: Height: Intake/Output Summary (Last 24 hours) at 10/03/2020 0854 Last data filed at 10/03/2020 0408 Gross per 24 hour Intake 240 ml Output 2450 ml Net -2210 ml Exam 10/03/2020: Lungs: Clear to auscultation and percussion Heart: S1 and S2 normal. No murmur. No gallop or rub Abdomen: Soft, nontender, bowel sounds active. Extremities: No edema SCHEDULED MEDICATIONS: Followed by 0.9% NaCl injection 1-10 mL, Intracatheter, intra-Procedure multiple 0.9% NaCl injection 3 mL, Intracatheter, q8h amitriptyline (Elavil) tablet 50 mg, Oral, AT BEDTIME amoxicillin (Amoxil) capsule 500 mg, Oral, TID anastrozole (Arimidex) tablet 1 mg, Oral, QDAY apixaban (Eliquis) tablet 10 mg, Oral, BID atorvastatin (Lipitor) tablet 40 mg, Oral, AT BEDTIME bromfenac Sodium (Prolensa) 0.07 % opthalmic solution 1 drop, Right Eye, QDAY calcium-vitamin D (Os-Mckenna 500 + D) 500-200 mg-unit tablet 1 tablet, Oral, BID WC cyanocobalamin (Vitamin B-12) tablet 1,000 mcg, Oral, QDAY dorzolamide (Trusopt) 2 % ophthalmic solution 1 drop, Each Eye, BID fentaNYL (PF) (Sublimaze) injection 25-50 mcg, Intravenous, intra-Procedure multiple flecainide (Tambocor) tablet 50 mg, Oral, BID insulin aspart (NovoLOG) pen 0-6 Units, Subcutaneous, TID WC insulin glargine (Lantus) pen 8 Units, Subcutaneous, AT BEDTIME iopamidol (Isovue 370) 76 % contrast, Intravenous, intra-Procedure multiple levothyroxine (Synthroid) tablet 50 mcg, Oral, QDAY BEFORE BREAKFAST lidocaine PF (Xylocaine Mpf) 1 % injection, Infiltration, intra-Procedure multiple midazolam (Versed) injection 0.5-2 mg, Intravenous, intra-Procedure multiple pantoprazole EC (Protonix) tablet 40 mg, Oral, AT BEDTIME polyethylene glycol 3350 (Miralax) packet 17 g, Oral, QDAY potassium chloride ER (Klor-Con M) tablet 40 mEq, Oral, QDAY WITH BREAKFAST regadenoson (Lexiscan) injection 0.4 mg, Intravenous, Cardiology Once senna-docusate (Senokot-S) tablet 1 tablet, Oral, BID verapamil CR (Isoptin-SR) tablet 120 mg, Oral, AT BEDTIME vitamin D3-cholecalciferol (Cholecalciferol) 25 MCG (1000 UNITS) tablet 1,000 Units, Oral, QDAY [] iopamidol (Isovue 370) 76 % contrast, Intravenous, Contrast - Once ?? [START ON 10/06/2020] apixaban (Eliquis) tablet 5 mg, Oral, BID ?? CONTINUOUS MEDICATIONS: PRN MEDICATIONS: 0.9% NaCl injection 1-10 mL, Intracatheter, PRN albuterol HFA (Proventil;Ventolin;Proair) 108 (90 Base) MCG/ACT inhaler 2 puff, Inhalation, q4h PRN dextrose IV 12.5-25 g, Intravenous, PRN glucagon (Glucagen) injection 1 mg, Intramuscular, PRN glucose (Diabetic Use) (Dex4 Glucose) oral liquid, Oral, PRN ?? glucose (Diabetic Use) oral gel, Oral, PRN Labs Recent Labs Component Name 10/03/20 0402 10/02/20 0507 10/01/20 0449 SODIUM 134* 133* 134* POTASSIUM 4.5 4.6 4.6 CHLORIDE 106 107 108* CO2 22* 21* 20* BUN 12 11 13 CREATININE 0.74 0.76 0.81 GLUCOSE 142* 157* 170* Recent Labs Component Name 09/28/20 0155 09/27/20 0115 12/28/16 1814 PT 13.9 14.1 10.1 INR 1.1 1.1 1.0 Recent Labs Component Name 10/03/20 0402 10/02/20 0507 10/01/20 0449 WBC 11.5* 12.3* 12.2* HGB 10.4* 10.3* 10.5* HCT 34.3* 33.9* 34.5* PLTCOUNT 255 249 276 Recent Labs Component Name 09/26/20 1927 BNP 205* Cardiographics ECG 09/26/20: Normal sinus rhythm with left anterior fascicular block. Septal infarct, age undetermined. Possible Lateral infarct, age undetermined Echocardiogram: ??? Left ventricle is normal in size. ? Normal global systolic left ventricular function. ? EF 60%. ? EF range is 60% - 70%. ? Left ventricle wall thickness is increased. ? There are no regional wall motion abnormalities. ? Doppler parameters are consistent with abnormal left ventricular relaxation (Grade 1 diastolic dysfunction). ?? Right Ventricle: Mildly-moderately dilated right ventricle. Right ventricular wall thickness is normal. Right ventricular systolic function is mildly reduced. Evidence of RV strain noted . Pulmonary artery pressure normal. Vascular bilateral venous doppler 09/29/20: - There is no evidence of an acute deep or superficial venous thrombosis in either the right or left lower extremity. Assessment: ?? Chest pain, likely from saddle PE / distal thrombi ?? Saddle PE s/p thrombectomy ?? Severe dilated RV with strain; repeat limited echo showed dilated RV but with better contractileactivity. ?? Recent history of gluteal hematoma ?? A-fib not on anticoagulation due to fall risk ?? Prior left breast malignancy followed by Dr. Gonzalez ?? Hereditary spastic paraplegia with neuropathy ?? Diabetes ?? CAD ?? Plan: ?? Nuclear stress test pending. Melodie Maya MD, [facility] 10/03/2020 * Bonny Moran RN - 10/02/2020 7:37 PM CDT Shift Summary: Pt A & O x4. SR on the monitor. VSS. Pt remains on 2 L nasal cannula. Still no BM this shift. KUB ordered. Chronic schmitt remains in place, 1350cc UOP. Dressing to buttocks remains c/d/i. Worked with PT/OT this AM and sat up in chair most of shift. Plan for NPO @0000 for Stress test in AM. Will continue to monitor. * Bonny Moran RN - 10/02/2020 7:13 PM CDT Problem: Fall Risk Goal: Fall risk and fall related injury risk are minimized (interventions related to the fall risk can be found in the flowsheet documentation) Outcome: Progressing Note: Pt will remain free of falls from now through discharge. Problem: Potential for Urinary Catheter-Associated Infection Goal: Signs and Symptoms of urinary catheter-associated infection are avoided Outcome: Progressing Problem: Pain/Discomfort Goal: Patient exhibits reduced pain/discomfort as evidenced by pain scores Outcome: Progressing Problem: Skin Integrity Goal: Skin integrity is maintained or improved Outcome: Progressing Note: Pt will be turned and repositioned frequently to maintain skin integrity. Problem: Tissue injury due to various disease processes Goal: Provide optimal wound healing environment Outcome: Progressing * Javier Martinez, BUFFERER-HOME ORGANIZER - 10/02/2020 4:28 PM CDT [facility] Pulmonary Medicine Progress Note Answering Service: [phone] Javier Martinez, ANP-C for Dr. Arnold Patient: Loc Leon Admit Date: 09/26/2020 2:28 PM Hospital Day: 6 Reason for Visit: dyspnea with + saddle PE Subjective Pt seen earlier this am and found now on 2L NC with adequate O2 sats. Pt placed on oxygen over weekend and plans for stress test today. Pt denies dyspnea or CP at rest, mild CHARLES with limited activity. Reports legs much improved with less pain. in room when seen. UOP net neg. Tmax 99.1. Remains on amoxicillin. Data Vitals: 10/02/20 0459 10/02/20 0800 10/02/20 0959 10/02/20 1201 BP: 119/57 111/44 102/52 117/56 Pulse: 73 66 75 Resp: 18 18 18 Temp: 96.8 ??F (36 ??C) 97.2 ??F (36.2 ??C) 97.3 ??F (36.3 ??C) SpO2: 93% 94% 94% 97% Weight: Height: Temp (30hrs) Max:99.1 ??F (37.3 ??C) Intake/Output Summary (Last 24 hours) at 10/02/2020 8278 Last data filed at 10/02/2020 1056 Gross per 24 hour Intake 600 ml Output 3200 ml Net -2600 ml Filed Wts: 09/27/20 0031 Weight: 79.4 kg (175 lb) Current Medications Followed by 0.9% NaCl injection 1-10 mL, Intracatheter, intra-Procedure multiple 0.9% NaCl injection 3 mL, Intracatheter, q8h amitriptyline (Elavil) tablet 50 mg, Oral, AT BEDTIME amoxicillin (Amoxil) capsule 500 mg, Oral, TID anastrozole (Arimidex) tablet 1 mg, Oral, QDAY apixaban (Eliquis) tablet 10 mg, Oral, BID atorvastatin (Lipitor) tablet 40 mg, Oral, AT BEDTIME bromfenac Sodium (Prolensa) 0.07 % opthalmic solution 1 drop, Right Eye, QDAY calcium-vitamin D (Os-Mckenna 500 + D) 500-200 mg-unit tablet 1 tablet, Oral, BID WC cyanocobalamin (Vitamin B-12) tablet 1,000 mcg, Oral, QDAY dorzolamide (Trusopt) 2 % ophthalmic solution 1 drop, Each Eye, BID fentaNYL (PF) (Sublimaze) injection 25-50 mcg, Intravenous, intra-Procedure multiple flecainide (Tambocor) tablet 50 mg, Oral, BID insulin aspart (NovoLOG) pen 0-6 Units, Subcutaneous, TID WC insulin glargine (Lantus) pen 8 Units, Subcutaneous, AT BEDTIME iopamidol (Isovue 370) 76 % contrast, Intravenous, Contrast - Once iopamidol (Isovue 370) 76 % contrast, Intravenous, intra-Procedure multiple levothyroxine (Synthroid) tablet 50 mcg, Oral, QDAY BEFORE BREAKFAST lidocaine PF (Xylocaine Mpf) 1 % injection, Infiltration, intra-Procedure multiple midazolam (Versed) injection 0.5-2 mg, Intravenous, intra-Procedure multiple pantoprazole EC (Protonix) tablet 40 mg, Oral, AT BEDTIME polyethylene glycol 3350 (Miralax) packet 17 g, Oral, QDAY potassium chloride ER (Klor-Con M) tablet 40 mEq, Oral, QDAY WITH BREAKFAST regadenoson (Lexiscan) injection 0.4 mg, Intravenous, Cardiology Once senna-docusate (Senokot-S) tablet 1 tablet, Oral, BID verapamil CR (Isoptin-SR) tablet 120 mg, Oral, AT BEDTIME vitamin D3-cholecalciferol (Cholecalciferol) 25 MCG (1000 UNITS) tablet 1,000 Units, Oral, QDAY [COMPLETED] lactulose (Chronulac) solution 20 g, Oral, Once [START ON 10/06/2020] apixaban (Eliquis) tablet 5 mg, Oral, BID Test Results Reviewed: leukocytosis WBC 12.3, hyponatremia Recent Labs Component Name 10/02/20 0507 10/01/20 0449 09/30/20 0547 WBC 12.3* 12.2* 10.3 HGB 10.3* 10.5* 10.7* HCT 33.9* 34.5* 34.8* PLTCOUNT 249 276 281 Recent Labs Component Name 10/02/20 0507 10/01/20 0449 09/30/20 0547 SODIUM 133* 134* 133* POTASSIUM 4.6 4.6 4.4 CHLORIDE 107 108* 104 CO2 21* 20* 21* BUN 11 13 14 CREATININE 0.76 0.81 0.78 GLUCOSE 157* 170* 159* CALCIUM 10.0 9.9 10.1 ALT 18 16 18 ALKPHOS 94 87 88 AST 16 15 12 TBIL 0.3 0.2 0.3 TPROT 5.7* 5.8* 5.9* EGFR >60 >60 >60 EGFRAFR >60 >60 >60 ALBUMIN 3.2 3.2 3.3 Micro Neg COVID 19 09/26/20 Urine culture 09/27/20 +ecoli, enterococcus faecalis Imaging 09/26/20 CTA chest: 1. 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 2. ??There is leftward intraventricular septal bowing which may represent right heart strain. 09/29 CXR - CM, o/w lungs are clear, no IF/effusions/PTX - NAD. 09/27/20 ECHO: EF 60-70%, grade 1 DD,Mildly-moderately dilated right ventricle, Evidence of RV strain noted 09/30/20 ECHO - LV EF 65-70%, RV systolic function reduced. Limited study 10/16/20 BL venous doppler- negative Procedures PFTs: PRE: none Nocturnal Oximetry: none Ambulatory oximetry: done on *: O2 sat at rest %: Ambulated ft, O2 sat %. Peripheral IV Right Antecubital (Active) Placement Date/Time: 09/26/20 1446 Orientation: Right Location: Antecubital Name/Credentials of person who placed: DES Bocanegra IV Catheter Size: 20 Gauge Number of days: 2 Puncture Site Femoral (Active) Date/Time: 09/28/20 0904 Name/Credentials of person who placed: Dr. Marcos Azar Orientation: Right Puncture Site Location: Femoral Puncture Type: Venous Number of days: 0 Indwelling Transurethral Urinary Catheter (Active) No Placement Date or Time found. Existing LDA on arrival from: Outside Facility Number of days: Exam General appearance: alert, cooperative & pleasant, no distress, on room air with O2 sat 90-93%,improved with sitting up in bed and deep breathing. HEENT: EOMI, nares patent. Heart: regular rhythm, normal S1 and S2, systolic murmur noted Lungs: breath sounds symmetric; no rales or wheezes, or crackles Abdomen: soft, NTND, with normal bowel sounds Extremities: trace edema to BLE, no redness or warmth Neuro: A&O, UE strength WNL, LE weakness bilaterally Impression: 1. Dyspnea 2. Acute PE with Rt heart strain- s/p suction thrombectomy 09/28 (Precipitating factors for pulmonary embolism may have included recent hospitalization, relative immobilization due to left hip pain and gluteal hematoma and use of anastrozole which can increase risk for pulmonary embolism. No evidence of active malignancy), hemodynamically stable 3. Recent history Lt gluteal hematoma 4. Mildly elevated troponin in BNP related to acute PE is noted. 5. 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 History of malignant neoplasm Lt breast follows with Dr. Gonzalez on Anastrozole 7. Hereditary spastic paraplegia 8. Neuropathy 9. DM 10. Afib 11. Additional hx, HTN, CAD, hx TIA, hypothyroidism ? Recommendations: 1. Continue to wean back off O2 once RA O2 sats >= 90%. 2. S/p suction thrombectomy 09/28/20. Now on PO Eliquis per primary team. Encouraged f/u with hematology, Dr. Gonzalez for anticoagulation management and review of chemo medications given increased riskVTE 3. S/p Venous dopplers 09/28-negative, deferred IVC filter placement 4. Echo with normal EF, right heart strain noted. Plans for stress with cardiology 5. abx- on Amoxicilinfor UTI 6. PT ordered for monitored ambulation. Encouraged use of IS 7. Additional medical management per primary team. 8. Encouraged increased use of IS and out of bed as tolerated. 9. Ok from pulmonary standpoint for discharge once weaned back to RA. Pt can f/u in our office withDr. Schultz in 2-4 wks. Plan and assessment discussed with Dr. Arnold, jpt's spouse, and pt * Nathanael Arnold MD - 10/02/2020 3:31 PM CDT Patient seen ,examined and plan discussed with ANP. Agree with her recommendation. All pertinent data reviewed personally including labs,images,notes, medications and vitals. Events overnight noted Reason for follow-up is saddle pulmonary embolus Patient is on oxygen at 2 L saturating 98 percent is going for a stress test today Repeat CT scan on October 01 shows resolution of the saddle embolism and less high right heart strain Patient in is concerned about patient's inability to care for herself and need for physicaltherapy ?? A dyspnea with acute pulmonary embolism with right heart strain status post suction thrombectomylikely provoked due to several factors including recent hospitalization, relative immobilization and use of anastrozole ?? Recent history of left gluteal hematoma ?? History of atrial fibrillation ?? History of malignant neoplasm of left breast on anastrozole ?? Comorbidities ?? Wean down the oxygen to room air patient at baseline is not on oxygen\ ?? Incentive spirometry deep breathing exercises PT OT to assess the patient and give recommendation about safety and outpatient versus inpatient therapy ?? Eliquis on discharge ?? Stress test today and okay to discharge once off the oxygen from pulmonary standpoint Nathanael Arnold MD Pulmonary & Sleep Medicine [phone] * Angela Blanc, PharmD - 10/02/2020 1:09 PM CDT Pharmacy DOAC Education: DOAC education for PE for anticoagulation and booklet provided to patient. Information regarding patient's specific agent was highlighted. Discussed all major counseling topics including: Indication for apixaban (ELIQUIS) therapy and importance of taking DOAC as prescribed. Information on DOAC dosing, including strategies for adherence if necessary. Potential for other medications to interact with DOAC therapy and advised not to take start or discontinue any medication or [id number] medication without the advice of their health transitions rn care coordinator. Adverse effects, including signs and symptoms of bleeding were explained as DOAC increases the riskof bleeding. Reviewed plan for discharge supply and discussed potential barriers (financial, insurance, etc) including who to follow-up with if unable to fill DOAC Patient verbalized understanding. Opportunities for questions provided. Angela Blanc PharmD Clinical Pharmacy Services, ext [phone] * Kelly Chapman, DES - 10/02/2020 10:40 AM CDT Wound care consult received. Full bedside assessment deferred as patient working with physical therapy. Recommendations based on wound photography. No drainage from buttock ulceration per nursing documentation. Treatment already initiated with wound gel and dry dressing, which appears appropriate. Frequent repositioning and heel elevation for pressure relief. Consider placing Gaymar chair cushionwhen up to chair. Discussed with primary RN Bonny. * Torri Teixeira, TRISTA - 10/02/2020 10:37 AM CDT Physical Therapy Treatment Summary Chart review completed. Nursing consented for PT. Explained purpose of PT and patient consented to participate in therapy. PPE worn by staff: gloves;mask - surgical PPE worn by patient: gown - patient, clean SUBJECTIVE: I don't feel dizzy, but I do feel lightheaded Pt c/o of lightheadedness throughout session that does not change with change in position. Patient's Goal for the Day: sit up in chair Pain Assessment: Pain Rating Score #: 0 OBJECTIVE: Orientation Level: Oriented X4 Precautions: falls, monitor vitals Bed Mobility: Supine to Sit: Moderate Assistance Sit to Supine: Activity Does Not Occur (up in chair) Transfers: Sit to Stand: Moderate Assistance;X 2 Stand to Sit: Moderate Assistance;X 2 Bed to Chair: Moderate Assistance to Right Type of Transfer: Stand Pivot Transfer Balance: Sitting - Static: Fair;With Both Upper Extremity's Support Standing - Static: Fair;With Both Upper Extremity's Support Activity Tolerance and O2 Requirements: Activity Tolerance: Requires rest breaks O2 L/M: 2 L/Minute O2 DEVICE: Nasal Cannula Vital Signs: SpO2: 94 % BP: 102/52 ASSESSMENT: Pt tolerates session fair, continues to be limited by report of lightheadedness. Pt does not report change in her lightheadedness with change in position, seems to remain constant. BP is soft throughout session. Pt's pulse ox remains stable on 2L NC. Further ambulation defered this datedue to c/o lightheadedness. As a result, pt would require 24/7 supervision for safe d/c home and would benefit from HHPT to continue to address impairments in safety with functional mobility. Call light and phone in reach. All lines, monitors, IV's, equipment in place and intact pre and post visit. Bonny NUNES, notified of patient's performance/location end of session. Pt educated in PT plan of care, fall precautions, and benefits of OOB activity. PT Jacquelyn Sandhu, present to assist throughout the session. Please refer to the Filed Flowsheet for further details. Refer to Plan of Care for PT goals. RECOMMENDATIONS/PLAN: PT Discharge Recommendations: 24 Hour Supervision;Home Health PT vs SNF if 24/7 supervision/assist is not feasible. Recommended Transportation Method: Private Car If this is the last Physical Therapy visit, this note serves as the discharge summary. Torri PT, DPT [phone] * Kelly Arellano, DES - 10/02/2020 9:30 AM CDT Per Bonny assigned nurse 4N patient eating and drinking coffee at this time. Please keep NPO after midnight for stress test tomorrow. No caffeine or decaf products. * Ryan He MD - 10/02/2020 8:22 AM CDT Hospitalist Progress Note Admit Date: 09/26/2020 2:28 PM Hospital Day: 6 Clinical Course Saddle embolism, SOB New Symptoms Patient has no new symptoms Data Vitals: 10/01/20201310/02/20 0001 10/02/20 0459 10/02/20 0800 BP: 112/58 109/48 119/57 111/44 Pulse: 81 73 66 Resp: 25 18 18 Temp: 98 ??F (36.7 ??C) 97.6 ??F (36.4 ??C) 96.8 ??F (36 ??C) SpO2: 95% 93% 94% Weight: Height: Temp (30hrs) Max:99.1 ??F (37.3 ??C) My review of labs, imaging, notes and other tests is significant for Recent Labs Component Name 10/02/20 0507 10/01/20 0449 09/30/20 0547 WBC 12.3* 12.2* 10.3 HGB 10.3* 10.5* 10.7* HCT 33.9* 34.5* 34.8* PLTCOUNT 249 276 281 Recent Labs Component Name 10/02/20 0507 10/01/209 09/30/20 0547 SODIUM 133* 134* 133* POTASSIUM 4.6 4.6 4.4 CHLORIDE 107 108* 104 CO2 21* 20* 21* BUN 11 13 14 CREATININE 0.76 0.81 0.78 GLUCOSE 157* 170* 159* CALCIUM 10.0 9.9 10.1 Exam General appearance: alert, cooperative, no distress Heart: regular rhythm, normal S1 and S2, without murmurs, rubs or gallops Lungs: breath sounds normal and symmetric; no rales or wheezes Abdomen: soft without mass, non-tender, with normal bowel sounds Extremities: no clubbing, 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 Cranial nerves 2-12 grossly normal. Power tone all 4 extremeties normal Assessment and Plan 1. Acute large saddle embolism with possible RV strain: on heparin drip. Will consult with IVR for Possible EKOS providing the fact that she had gluteus hematoma 1 week ago. For EHCO to confirm RV strain. BNP is mildly elevated at 200 and troponin is 0.08 2. Acute hypoxic respiratory failure 2ry to PE: on 1-2 L/min 3. Hyponatremia: mild. On IV fludis, stopped diuretics. 4. DM II: on insulin regimen. Controlled 5. Hypothyroidism: on home meds 6. Hx of Breast cancer: 7. 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 9. HTN: hold HTN meds. 10. GERD: on home meds 11.Hx of TIA: was on plavix before 12. Recent Glueus muscle hematoma. 13. Hypercalcemia: for workup 14. LETA: for workup 15. Primary hyperparathyroidism: Vitamin D and calcium Summary and daily updates: 09/27: For venous doppler, ECHO, heparin, venous doppler, transfer to intermediate unit. Discussed with IVR and cardiology, EKOS might be risky now with a previous recent hematoma. Will monitor and obtain ECHO and decide. Her associate counsel is Dr. Valencia, , he is referring to Dr. Maya. 09/28: For mechanical suction thrombectomy today as RV is very dilated. Continue heparin. Sent for workup for hypercalcemia and LETA. Stable VS and labs, on room air today 09/29: Severe LETA, iron IV, FOBT is pending. Hypercalcemia: low vitamin D, highPTH, primary hyperparathyroidism, added vitamin D and calcium andmonitor calcium level, corrected calcium is 10 today., calcium is. For osteoporosis. Venous doppler is negative, switch to Eliquis. No need for IVC filter. Repeat limited ECHO to asses RV today, if ok then discharge home. PT/OT for HH. UTI grew E.Coli and enterococcus fecalis, switched to amoicillin 09/30: Weak and SOB upon ambulation. PT/OT, continue Eliquis, for a repeated limited ECHO to assess RV functions Amoxicillin for UTI with Enteorcoccus ad E.Coli for 5 days LETA, infused iron, FOBT is pending Calcium and vitamin D for Hyperparathyroidism, PT/OT and possible SNF placement. 10/01: Limited ECHO shwoed reduced RV systolic function and mild to moderate dilatation. Stable VS on Eliquis. No change in the ECHO Had severe chest pain yesterday, troponin and EKG are ok, sent for CTA stat but not done yet! Stable VS. For LExiscan tomorrow as CTA is good with continued RV dilatation Continue amoxicillin FOBT is pending. PT and placement 10/02: Stable, no new issues Pending lexiscan Pending PT/OT eval. Eliquis lfelong. Vitamin D and calcium FOBT is pending. Still constipated despite all the laxatives. For KUB Peripheral IV Anterior;Left Forearm (Active) Placement Date/Time: 09/28/20 1536 Orientation: Anterior;Left Location: Forearm IV Catheter Size: 22 Gauge Technique: Anatomical Landmarks Number of start attempts: 2 Procedure Tolerance: Well Number of days: 3 Peripheral IV Anterior;Right Forearm (Active) Placement Date/Time: 09/29/20 0800 Orientation: Anterior;Right Location: Forearm IV Catheter Size: 22 Gauge Number of start attempts: 1 Local Anesthetic Used?: Trans Dermal Procedure Tolerance: Well Number of days: 3 Peripheral IV Anterior;Left;Upper Arm (Active) Placement Date/Time: 10/01/20 0822 Orientation: Anterior;Left;Upper Location: Arm Name/Credentials of person who placed: Ike Messer RN IV Catheter Length: 1..25 IV Catheter Size: 20 Gauge Data Engineer/Model : Crooks Technique: Anatomical Land... Number of days: 1 Pressure Ulcer Buttock Left;Right (Active) Assessment Date/Assessment Time: 09/30/20 2315 Present on admission?: (c) Yes Location: Buttock Orientation: Left;Right Number of days: 1 Puncture Site Femoral (Active) Date/Time: 09/28/20 0904 Name/Credentials of person who placed: Dr. Marcos Azar Orientation: Right Puncture Site Location: Femoral Puncture Type: Venous Number of days: 3 Indwelling Transurethral Urinary Catheter (Active) No Placement Date or Time found. 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 S1 = HHSTANDARD S2 = HHSOCIAL S3 = HHSAFETY S4 = HHSICK * Melodie Maya MD - 10/02/2020 8:06 AM CDT Cardiology Progress Note Admit Date: 09/26/2020 Hospital Day: 6 Follow up for: Shortness of breath. Symptoms No complaints this morning. Denies chest pain or shortness of breath. Needs help with basic daily activities given generalized weakness. Tele: SR Vital signs Vitals: 10/01/20 1531 10/01/20201310/02/20 0001 10/02/20 0459 BP: 114/77 112/58 109/48 119/57 Pulse: 74 81 73 Resp: 23 25 18 Temp: 99.1 ??F (37.3 ??C) 98 ??F (36.7 ??C) 97.6 ??F (36.4 ??C) 96.8 ??F (36 ??C) SpO2: 97% 95% 93% Weight: Height: Intake/Output Summary (Last 24 hours) at 10/02/2020 0806 Last data filed at 10/02/2020 0459 Gross per 24 hour Intake 1500 ml Output 3200 ml Net -1700 ml Exam 10/02/2020: Lungs: Clear to auscultation and percussion Heart: S1 and S2 normal. No murmur. No gallop or rub Abdomen: Soft, nontender, bowel sounds active. Extremities: No edema SCHEDULED MEDICATIONS: Followed by 0.9% NaCl injection 3 mL, Intracatheter, q8h amitriptyline (Elavil) tablet 50 mg, Oral, AT BEDTIME amoxicillin (Amoxil) capsule 500 mg, Oral, TID anastrozole (Arimidex) tablet 1 mg, Oral, QDAY apixaban (Eliquis) tablet 10 mg, Oral, BID atorvastatin (Lipitor) tablet 40 mg, Oral, AT BEDTIME bromfenac Sodium (Prolensa) 0.07 % opthalmic solution 1 drop, Right Eye, QDAY calcium-vitamin D (Os-Mckenna 500 + D) 500-200 mg-unit tablet 1 tablet, Oral, BID cyanocobalamin (Vitamin B-12) tablet 1,000 mcg, Oral, QDAY dorzolamide (Trusopt) 2 % ophthalmic solution 1 drop, Each Eye, BID fentaNYL (PF) (Sublimaze) injection 25-50 mcg, Intravenous, intra-Procedure multiple flecainide (Tambocor) tablet 50 mg, Oral, BID insulin aspart (NovoLOG) pen 0-6 Units, Subcutaneous, TID insulin glargine (Lantus) pen 8 Units, Subcutaneous, AT BEDTIME iopamidol (Isovue 370) 76 % contrast, Intravenous, Contrast - Once iopamidol (Isovue 370) 76 % contrast, Intravenous, intra-Procedure multiple levothyroxine (Synthroid) tablet 50 mcg, Oral, QDAY BEFORE BREAKFAST lidocaine PF (Xylocaine Mpf) 1 % injection, Infiltration, intra-Procedure multiple midazolam (Versed) injection 0.5-2 mg, Intravenous, intra-Procedure multiple pantoprazole EC (Protonix) tablet 40 mg, Oral, AT BEDTIME polyethylene glycol 3350 (Miralax) packet 17 g, Oral, QDAY potassium chloride ER (Klor-Con M) tablet 40 mEq, Oral, QDAY WITH BREAKFAST senna-docusate (Senokot-S) tablet 1 tablet, Oral, BID verapamil CR (Isoptin-SR) tablet 120 mg, Oral, AT BEDTIME vitamin D3-cholecalciferol (Cholecalciferol) 25 MCG (1000 UNITS) tablet 1,000 Units, Oral, QDAY [COMPLETED] lactulose (Chronulac) solution 20 g, Oral, Once [COMPLETED] magnesium hydroxide (Milk Of Magnesia) suspension 45 mL, Oral, Once ?? [START ON 10/06/2020] apixaban (Eliquis) tablet 5 mg, Oral, BID ?? CONTINUOUS MEDICATIONS: PRN MEDICATIONS: 0.9% NaCl injection 1-10 mL, Intracatheter, PRN 0.9% NaCl IV Flush Bag, Intracatheter, Once PRN albuterol HFA (Proventil;Ventolin;Proair) 108 (90 Base) MCG/ACT inhaler 2 puff, Inhalation, q4h PRN dextrose IV 12.5-25 g, Intravenous, PRN glucagon (Glucagen) injection 1 mg, Intramuscular, PRN glucose (Diabetic Use) (Dex4 Glucose) oral liquid, Oral, PRN ?? glucose (Diabetic Use) oral gel, Oral, PRN Labs Recent Labs Component Name 10/02/20 0507 10/01/20 0449 09/30/20 0547 SODIUM 133* 134* 133* POTASSIUM 4.6 4.6 4.4 CHLORIDE 107 108* 104 CO2 21* 20* 21* BUN 11 13 14 CREATININE 0.76 0.81 0.78 GLUCOSE 157* 170* 159* Recent Labs Component Name 09/28/20 0155 09/27/20 0115 12/28/16 1814 PT 13.9 14.1 10.1 INR 1.1 1.1 1.0 Recent Labs Component Name 10/02/20 0507 10/01/20 0449 09/30/20 0547 WBC 12.3* 12.2* 10.3 HGB 10.3* 10.5* 10.7* HCT 33.9* 34.5* 34.8* PLTCOUNT 249 [id number] 281 Recent Labs Component Name 09/26/20 1927 BNP 205* Cardiographics ECG 09/26/20: Normal sinus rhythm with left anterior fascicular block. Septal infarct, age undetermined. Possible Lateral infarct, age undetermined Echocardiogram: ??? Left ventricle is normal in size. ? Normal global systolic left ventricular function. ? EF 60%. ? EF range is 60% - 70%. ? Left ventricle wall thickness is increased. ? There are no regional wall motion abnormalities. ? Doppler parameters are consistent with abnormal left ventricular relaxation (Grade 1 diastolic dysfunction). ?? Right Ventricle: Mildly-moderately dilated right ventricle. Right ventricular wall thickness is normal. Right ventricular systolic function is mildly reduced. Evidence of RV strain noted . Pulmonary artery pressure normal. Vascular bilateral venous doppler 09/29/20: - There is no evidence of an acute deep or superficial venous thrombosis in either the right or left lower extremity. Assessment: ?? Saddle PE s/p thrombectomy ?? Severe dilated RV with strain; repeat limited echo showed dilated RV but with better contractileactivity. ?? Recent history of gluteal hematoma ?? A-fib not on anticoagulation due to fall risk ?? Prior left breast malignancy followed by Dr. Gonzalez ?? Hereditary spastic paraplegia with neuropathy ?? Diabetes ?? CAD ?? Plan: ?? Eliquis 5 mg po BID. ?? No need for IVC filter given negative lower extremity venous dopplers. ?? Disposition per primary team. Melodie Maya MD, [facility] 10/02/2020 * Rosemary Craig RN - 10/01/2020 10:51 PM CDT Problem: Fall Risk Goal: Fall risk and fall related injury risk are minimized (interventions related to the fall risk can be found in the flowsheet documentation) Outcome: Progressing Problem: Potential for Urinary Catheter-Associated Infection Goal: Signs and Symptoms of urinary catheter-associated infection are avoided Outcome: Progressing Problem: Bleeding Precautions Goal: Excessive bleeding will be minimized Outcome: Progressing * Sosa Lr RN - 10/01/2020 5:42 PM CDT Shift Summary: Patient calm Vitals monitored. 2L nasal cannula. Up to chair this shift with [address] WDL. No complaints of pain. Awaiting patient to have bowel movement. Resting in bed with call light in reach. * Jarocho Rivera MD - 10/01/2020 8:31 AM CDT Cardiology Progress Note Admit Date: 09/26/2020 Hospital Day: 5 Follow up for: Shortness of breath. Symptoms She feels well this morning. Mild CP yesterday. No significant dyspnea. Tele: SR Vital signs Vitals: 09/30/20205709/30/20 2059 09/30/20 2301 10/01/20 0432 BP: 116/53 116/51 111/45 Pulse: 83 79 73 Resp: 22 20 18 Temp: 97.6 ??F (36.4 ??C) 98 ??F (36.7 ??C) 98.2 ??F (36.8 ??C) SpO2: 94% 93% 92% 91% Weight: Height: Intake/Output Summary (Last 24 hours) at 10/01/2020 0831 Last data filed at 09/30/2020 2100 Gross per 24 hour Intake 440 ml Output 1200 ml Net -760 ml Exam 10/01/2020: Lungs: Clear to auscultation and percussion Heart: S1 and S2 normal. No murmur. No gallop or rub Abdomen: Soft, nontender, bowel sounds active. Extremities: No edema SCHEDULED MEDICATIONS: Followed by 0.9% NaCl injection 3 mL, Intracatheter, q8h amitriptyline (Elavil) tablet 50 mg, Oral, AT BEDTIME amoxicillin (Amoxil) capsule 500 mg, Oral, TID anastrozole (Arimidex) tablet 1 mg, Oral, QDAY apixaban (Eliquis) tablet 10 mg, Oral, BID atorvastatin (Lipitor) tablet 40 mg, Oral, AT BEDTIME bromfenac Sodium (Prolensa) 0.07 % opthalmic solution 1 drop, Right Eye, QDAY calcium-vitamin D (Os-Mckenna 500 + D) 500-200 mg-unit tablet 1 tablet, Oral, BID WC cyanocobalamin (Vitamin B-12) tablet 1,000 mcg, Oral, QDAY dorzolamide (Trusopt) 2 % ophthalmic solution 1 drop, Each Eye, BID fentaNYL (PF) (Sublimaze) injection 25-50 mcg, Intravenous, intra-Procedure multiple flecainide (Tambocor) tablet 50 mg, Oral, BID insulin aspart (NovoLOG) pen 0-6 Units, Subcutaneous, TID WC insulin glargine (Lantus) pen 8 Units, Subcutaneous, AT BEDTIME iopamidol (Isovue 370) 76 % contrast, Intravenous, intra-Procedure multiple levothyroxine (Synthroid) tablet 50 mcg, Oral, QDAY BEFORE BREAKFAST lidocaine PF (Xylocaine Mpf) 1 % injection, Infiltration, intra-Procedure multiple midazolam (Versed) injection 0.5-2 mg, Intravenous, intra-Procedure multiple pantoprazole EC (Protonix) tablet 40 mg, Oral, AT BEDTIME polyethylene glycol 3350 (Miralax) packet 17 g, Oral, QDAY potassium chloride ER (Klor-Con M) tablet 40 mEq, Oral, QDAY WITH BREAKFAST senna-docusate (Senokot-S) tablet 1 tablet, Oral, BID verapamil CR (Isoptin-SR) tablet 120 mg, Oral, AT BEDTIME vitamin D3-cholecalciferol (Cholecalciferol) 25 MCG (1000 UNITS) tablet 1,000 Units, Oral, QDAY ?? [START ON 10/06/2020] apixaban (Eliquis) tablet 5 mg, Oral, BID ?? CONTINUOUS MEDICATIONS: PRN MEDICATIONS: 0.9% NaCl injection 1-10 mL, Intracatheter, PRN albuterol HFA (Proventil;Ventolin;Proair) 108 (90 Base) MCG/ACT inhaler 2 puff, Inhalation, q4h PRN dextrose IV 12.5-25 g, Intravenous, PRN glucagon (Glucagen) injection 1 mg, Intramuscular, PRN glucose (Diabetic Use) (Dex4 Glucose) oral liquid, Oral, PRN ?? glucose (Diabetic Use) oral gel, Oral, PRN Labs Recent Labs Component Name 10/01/2044809/30/20 0547 09/29/20 0451 SODIUM 134* 133* 132* POTASSIUM 4.6 4.4 3.3* CHLORIDE 108* 104 99 CO2 20* 21* 24 BUN 13 14 18 CREATININE 0.81 0.78 0.83 GLUCOSE 170* 159* 174* Recent Labs Component Name 09/28/20 0155 09/27/20 0115 12/28/16 1814 PT 13.9 14.1 10.1 INR 1.1 1.1 1.0 Recent Labs Component Name 10/01/20 04409/30/20 0547 09/29/20 0451 WBC 12.2* 10.3 14.3* HGB 10.5* 10.7* 11.2* HCT 34.5* 34.8* 35.0* PLTCOUNT 276 281 299 Recent Labs Component Name 09/26/20 1927 BNP 205* Cardiographics ECG 09/26/20: Normal sinus rhythm with left anterior fascicular block. Septal infarct, age undetermined. Possible Lateral infarct, age undetermined Echocardiogram: ??? Left ventricle is normal in size. ? Normal global systolic left ventricular function. ? EF 60%. ? EF range is 60% - 70%. ? Left ventricle wall thickness is increased. ? There are no regional wall motion abnormalities. ? Doppler parameters are consistent with abnormal left ventricular relaxation (Grade 1 diastolic dysfunction). ?? Right Ventricle: Mildly-moderately dilated right ventricle. Right ventricular wall thickness is normal. Right ventricular systolic function is mildly reduced. Evidence of RV strain noted . Pulmonary artery pressure normal. Vascular bilateral venous doppler 09/29/20: - There is no evidence of an acute deep or superficial venous thrombosis in either the right or left lower extremity. Assessment: ?? Saddle PE s/p thrombectomy ?? Severe dilated RV with strain (on my review) ?? Recent history of gluteal hematoma ?? A-fib not on anticoagulation due to fall risk ?? Prior left breast malignancy followed by Dr. Gonzalez ?? Hereditary spastic paraplegia with neuropathy ?? Diabetes ?? CAD ?? Plan: ?? Eliquis 5 mg po BID. ?? Echo showed normal LV, mild RV hypokinesis ?? No need for IVC filter given negative lower extremity venous dopplers. ?? Possible dc home soon? No further cardiac testing needed. Jarocho Rivera MD, [facility] 10/01/2020 * Sosa Lr RN - 10/01/2020 7:34 AM CDT Problem: Fall Risk Goal: Fall risk and fall related injury risk are minimized (interventions related to the fall risk can be found in the flowsheet documentation) Outcome: Progressing Problem: Potential for Urinary Catheter-Associated Infection Goal: Signs and Symptoms of urinary catheter-associated infection are avoided Outcome: Progressing Problem: Bleeding Precautions Goal: Excessive bleeding will be minimized Outcome: Progressing Problem: Pain/Discomfort Goal: Patient exhibits reduced pain/discomfort as evidenced by pain scores Outcome: Progressing Problem: Skin Integrity Goal: Skin integrity is maintained or improved Outcome: Progressing Problem: Tissue injury due to various disease processes Goal: Provide optimal wound healing environment Outcome: Progressing Problem: Glycemia Imbalance Goal: Clinical indication of glycemia balance is achieved Outcome: Progressing * David Gomez RN - 10/01/2020 6:43 AM CDT Pt AOx4, SR. Vitals stable. Pt wore 2L at daytime, and wore CPAP at night. Wounds noted-- photos taken and dressing changes done. Q2h turns done, skin care provided as needed. Attempted to place 18G IV, but was not successful. Will let daystaff know. No pain reported, no other signs of distress observed overnight. David Gomez RN Sent a msg to Dr Ryan balderas pt's family's request to speak to MD balderas pt's treatment plan and care. * Ryan He MD - 10/01/2020 6:05 AM CDT Hospitalist Progress Note Admit Date: 09/26/2020 2:28 PM Hospital Day: 5 Clinical Course Saddle embolism, SOB New Symptoms Patient has no new symptoms Data Vitals: 09/30/20205709/30/20205809/30/20 2301 10/01/20 0432 BP: 116/53 116/51 111/45 Pulse: 83 79 73 Resp: 22 20 18 Temp: 97.6 ??F (36.4 ??C) 98 ??F (36.7 ??C) 98.2 ??F (36.8 ??C) SpO2: 94% 93% 92% 91% Weight: Height: Temp (30hrs) Max:98.2 ??F (36.8 ??C) My review of labs, imaging, notes and other tests is significant for Recent Labs Component Name 10/01/20 0449 09/30/20 0547 09/29/20 0451 WBC 12.2* 10.3 14.3* HGB 10.5* 10.7* 11.2* HCT 34.5* 34.8* 35.0* PLTCOUNT 276 281 299 Recent Labs Component Name 10/01/20 0449 09/30/20 0547 09/29/20 0451 SODIUM 134* 133* 132* POTASSIUM 4.6 4.4 3.3* CHLORIDE 108* 104 99 CO2 20* 21* 24 BUN 13 14 18 CREATININE 0.81 0.78 0.83 GLUCOSE 170* 159* 174* CALCIUM 9.9 10.1 9.3 Exam General appearance: alert, cooperative, no distress Heart: regular rhythm, normal S1 and S2, without murmurs, rubs or gallops Lungs: breath sounds normal and symmetric; no rales or wheezes Abdomen: soft without mass, non-tender, with normal bowel sounds Extremities: no clubbing, 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 Cranial nerves 2-12 grossly normal. Power tone all 4 extremeties normal Assessment and Plan 1. Acute large saddle embolism with possible RV strain: on heparin drip. Will consult with IVR for Possible EKOS providing the fact that she had gluteus hematoma 1 week ago. For EHCO to confirm RV strain. BNP is mildly elevated at 200 and troponin is 0.08 2. Acute hypoxic respiratory failure 2ry to PE: on 1-2 L/min 3. Hyponatremia: mild. On IV fludis, stopped diuretics. 4. DM II: on insulin regimen. Controlled 5. Hypothyroidism: on home meds 6. Hx of Breast cancer: 7. 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 9. HTN: hold HTN meds. 10. GERD: on home meds 11.Hx of TIA: was on plavix before 12. Recent Glueus muscle hematoma. 13. Hypercalcemia: for workup 14. LETA: for workup 15. Primary hyperparathyroidism: Vitamin D and calcium Summary and daily updates: 09/27: For venous doppler, ECHO, heparin, venous doppler, transfer to intermediate unit. Discussed with IVR and cardiology, EKOS might be risky now with a previous recent hematoma. Will monitor and obtain ECHO and decide. Her associate counsel is Dr. Valencia, , he is referring to Dr. Maya. 09/28: For mechanical suction thrombectomy today as RV is very dilated. Continue heparin. Sent for workup for hypercalcemia and LETA. Stable VS and labs, on room air today 09/29: Severe LETA, iron IV, FOBT is pending. Hypercalcemia: low vitamin D, highPTH, primary hyperparathyroidism, added vitamin D and calcium andmonitor calcium level, corrected calcium is 10 today., calcium is. For osteoporosis. Venous doppler is negative, switch to Eliquis. No need for IVC filter. Repeat limited ECHO to asses RV today, if ok then discharge home. PT/OT for HH. UTI grew E.Coli and enterococcus fecalis, switched to amoicillin 09/30: Weak and SOB upon ambulation. PT/OT, continue Eliquis, for a repeated limited ECHO to assess RV functions Amoxicillin for UTI with Enteorcoccus ad E.Coli for 5 days LETA, infused iron, FOBT is pending Calcium and vitamin D for Hyperparathyroidism, PT/OT and possible SNF placement. 10/01: Limited ECHO shwoed reduced RV systolic function and mild to moderate dilatation. Stable VS on Eliquis. No change in the ECHO Had severe chest pain yesterday, troponin and EKG are ok, sent for CTA stat but not done yet! Stable VS. For LExiscan tomorrow as CTA is good with continued RV dilatation Continue amoxicillin FOBT is pending. PT and placement Peripheral IV Anterior;Left Forearm (Active) Placement Date/Time: 09/28/20 1536 Orientation: Anterior;Left Location: Forearm IV Catheter Size: 22 Gauge Technique: Anatomical Landmarks Number of start attempts: 2 Procedure Tolerance: Well Number of days: 2 Peripheral IV Anterior;Right Forearm (Active) Placement Date/Time: 09/29/20 0800 Orientation: Anterior;Right Location: Forearm IV Catheter Size: 22 Gauge Number of start attempts: 1 Local Anesthetic Used?: Trans Dermal Procedure Tolerance: Well Number of days: 1 Pressure Ulcer Buttock Left;Right (Active) Assessment Date/Assessment Time: 09/30/20 2315 Present on admission?: (c) Yes Location: Buttock Orientation: Left;Right Number of days: 0 Puncture Site Femoral (Active) Date/Time: 09/28/20 0904 Name/Credentials of person who placed: Dr. Marcos Azar Orientation: Right Puncture Site Location: Femoral Puncture Type: Venous Number of days: 2 Indwelling Transurethral Urinary Catheter (Active) No Placement Date or Time found. 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 S1 = HHSTANDARD S2 = HHSOCIAL S3 = HHSAFETY S4 = HHSICK * David Gomez RN - 10/01/2020 12:30 AM CDT Problem: Fall Risk Goal: Fall risk and fall related injury risk are minimized (interventions related to the fall risk can be found in the flowsheet documentation) Outcome: Progressing Note: Ms Leon is on fall risk precautions overnight, encouraged her to call for staff help as needed. Problem: Potential for Urinary Catheter-Associated Infection Goal: Signs and Symptoms of urinary catheter-associated infection are avoided Outcome: Progressing Note: Schmitt care done as needed to prevent cauti for Ms Leon's chronic schmitt. Problem: Pain/Discomfort Goal: Patient exhibits reduced pain/discomfort as evidenced by pain scores Outcome: Progressing Note: Continued to monitor Ms Leon for any complaints of pain/discomfort overnight. * Dianna Moore RN - 09/30/2020 5:44 PM CDT Shift Summary: Pt is stable at this time. Echo completed today. Pt c/o of chest burning/pain this afternoon, Drs notified. EKG completed, trop drawn. Ct chest to be completed. Will continue to monitor. 1740: Dr Rivera returned call, after being told of pt EKG and trop results, he states he anticipatesshe should have chest pain because of her previous procedure she had. Says we will monitor her at this time. * Agatha Negrete - 09/30/2020 12:22 PM CDT Echo with definity completed.Risk, benefits and alternatives were discussed with patient, verbal consent for procedure was obtained. * Jarocho Rivera MD - 09/30/2020 12:12 PM CDT Cardiology Progress Note Admit Date: 09/26/2020 Hospital Day: 4 Follow up for: Shortness of breath. Symptoms She feels well this morning. No shortness of breath or chest pain. Tele: SR Vital signs Vitals: 09/30/20 0034 09/30/20 0415 09/30/20 0802 09/30/20 1201 BP: 123/80 127/64 157/63 148/64 Pulse: 80 73 68 76 Resp: 11 Temp: 98 ??F (36.7 ??C) 97.9 ??F (36.6 ??C) 97.5 ??F (36.4 ??C) 97.5 ??F (36.4 ??C) SpO2: 90% 90% 90% 90% Weight: Height: Intake/Output Summary (Last 24 hours) at 09/30/2020 1212 Last data filed at 09/30/2020 0800 Gross per 24 hour Intake 240 ml Output 1550 ml Net -1310 ml Exam 09/30/2020: Lungs: Clear to auscultation and percussion Heart: S1 and S2 normal. No murmur. No gallop or rub Abdomen: Soft, nontender, bowel sounds active. Extremities: No edema SCHEDULED MEDICATIONS: Followed by 0.9% NaCl injection 3 mL, Intracatheter, q8h amitriptyline (Elavil) tablet 50 mg, Oral, AT BEDTIME amoxicillin (Amoxil) capsule 500 mg, Oral, TID anastrozole (Arimidex) tablet 1 mg, Oral, QDAY apixaban (Eliquis) tablet 10 mg, Oral, BID atorvastatin (Lipitor) tablet 40 mg, Oral, AT BEDTIME bromfenac Sodium (Prolensa) 0.07 % opthalmic solution 1 drop, Right Eye, QDAY calcium-vitamin D (Os-Mckenna 500 + D) 500-200 mg-unit tablet 1 tablet, Oral, BID cyanocobalamin (Vitamin B-12) tablet 1,000 mcg, Oral, QDAY dorzolamide (Trusopt) 2 % ophthalmic solution 1 drop, Each Eye, BID fentaNYL (PF) (Sublimaze) injection 25-50 mcg, Intravenous, intra-Procedure multiple flecainide (Tambocor) tablet 50 mg, Oral, BID insulin aspart (NovoLOG) pen 0-6 Units, Subcutaneous, TID insulin glargine (Lantus) pen 8 Units, Subcutaneous, AT BEDTIME iopamidol (Isovue 370) 76 % contrast, Intravenous, intra-Procedure multiple levothyroxine (Synthroid) tablet 50 mcg, Oral, QDAY BEFORE BREAKFAST lidocaine PF (Xylocaine Mpf) 1 % injection, Infiltration, intra-Procedure multiple midazolam (Versed) injection 0.5-2 mg, Intravenous, intra-Procedure multiple pantoprazole EC (Protonix) tablet 40 mg, Oral, AT BEDTIME polyethylene glycol 3350 (Miralax) packet 17 g, Oral, QDAY potassium chloride ER (Klor-Con M) tablet 40 mEq, Oral, QDAY WITH BREAKFAST senna-docusate (Senokot-S) tablet 1 tablet, Oral, BID verapamil CR (Isoptin-SR) tablet 120 mg, Oral, AT BEDTIME vitamin D3-cholecalciferol (Cholecalciferol) 25 MCG (1000 UNITS) tablet 1,000 Units, Oral, QDAY ?? [START ON 10/06/2020] apixaban (Eliquis) tablet 5 mg, Oral, BID ?? CONTINUOUS MEDICATIONS: PRN MEDICATIONS: 0.9% NaCl injection 1-10 mL, Intracatheter, PRN albuterol HFA (Proventil;Ventolin;Proair) 108 (90 Base) MCG/ACT inhaler 2 puff, Inhalation, q4h PRN dextrose IV 12.5-25 g, Intravenous, PRN glucagon (Glucagen) injection 1 mg, Intramuscular, PRN glucose (Diabetic Use) (Dex4 Glucose) oral liquid, Oral, PRN ?? glucose (Diabetic Use) oral gel, Oral, PRN Labs Recent Labs Component Name 09/30/20 0547 09/29/20 0451 09/26/20 1927 SODIUM 133* 132* 132* POTASSIUM 4.4 3.3* 3.5 CHLORIDE 104 99 96* CO2 21* 24 24 BUN 14 18 34* CREATININE 0.78 0.83 1.09 GLUCOSE 159* 174* 136* Recent Labs Component Name 09/28/20 0155 09/27/20 0115 12/28/16 1814 PT 13.9 14.1 10.1 INR 1.1 1.1 1.0 Recent Labs Component Name 09/30/20 0547 09/29/20 0451 09/28/20 1024 09/28/20 0155 WBC 10.3 14.3* - 13.9* HGB 10.7* 11.2* 12.3 12.7 HCT 34.8* 35.0* - 40.0 PLTCOUNT 281 299 - 316 Recent Labs Component Name 09/26/201926 BNP 205* Cardiographics ECG 09/26/20: Normal sinus rhythm with left anterior fascicular block. Septal infarct, age undetermined. Possible Lateral infarct, age undetermined Echocardiogram: ??? Left ventricle is normal in size. ? Normal global systolic left ventricular function. ? EF 60%. ? EF range is 60% - 70%. ? Left ventricle wall thickness is increased. ? There are no regional wall motion abnormalities. ? Doppler parameters are consistent with abnormal left ventricular relaxation (Grade 1 diastolic dysfunction). ?? Right Ventricle: Mildly-moderately dilated right ventricle. Right ventricular wall thickness is normal. Right ventricular systolic function is mildly reduced. Evidence of RV strain noted . Pulmonary artery pressure normal. Vascular bilateral venous doppler 09/29/20: - There is no evidence of an acute deep or superficial venous thrombosis in either the right or left lower extremity. Assessment: ?? Saddle PE s/p thrombectomy ?? Severe dilated RV with strain (on my review) ?? Recent history of gluteal hematoma ?? A-fib not on anticoagulation due to fall risk ?? Prior left breast malignancy followed by Dr. Gonzalez ?? Hereditary spastic paraplegia with neuropathy ?? Diabetes ?? CAD ?? Plan: ?? Eliquis 5 mg po BID. ?? limited echo pending ?? No need for IVC filter given negative lower extremity venous dopplers. Jarocho Rivera MD, FACC 09/30/2020 * Kirk Deutsch MD - 09/30/2020 10:58 AM CDT [facility] Pulmonary Medicine Progress Note Answering Service: [phone] Patient: Loc Leon Admit Date: 09/26/2020 2:28 PM Hospital Day: 4 Reason for Visit: dyspnea with + saddle PE Subjective Pt on RA when seen with sats of 90-93%. No c/o SOB or CP when seen. Dtr at bedside. No events overnight. Pt mildly confused over recent tests done. Data Vitals: 09/29/20 2122 09/30/20 0034 09/30/20 0415 09/30/20 0802 BP: 123/80 127/64 157/63 Pulse: 80 73 68 Resp: 22 18 21 Temp: 98 ??F (36.7 ??C) 97.9 ??F (36.6 ??C) 97.5 ??F (36.4 ??C) SpO2: 91% 90% 90% 90% Weight: Height: Temp (30hrs) Max:98.9 ??F (37.2 ??C) Intake/Output Summary (Last 24 hours) at 09/30/2020 1058 Last data filed at 09/30/2020 0800 Gross per 24 hour Intake 988.36 ml Output 1550 ml Net -561.64 ml Filed Wts: 09/27/20 0031 Weight: 79.4 kg (175 lb) Current Medications Followed by 0.9% NaCl injection 3 mL, Intracatheter, q8h amitriptyline (Elavil) tablet 50 mg, Oral, AT BEDTIME amoxicillin (Amoxil) capsule 500 mg, Oral, TID anastrozole (Arimidex) tablet 1 mg, Oral, QDAY apixaban (Eliquis) tablet 10 mg, Oral, BID atorvastatin (Lipitor) tablet 40 mg, Oral, AT BEDTIME bromfenac Sodium (Prolensa) 0.07 % opthalmic solution 1 drop, Right Eye, QDAY calcium-vitamin D (Os-Mckenna 500 + D) 500-200 mg-unit tablet 1 tablet, Oral, BID WC cyanocobalamin (Vitamin B-12) tablet 1,000 mcg, Oral, QDAY dorzolamide (Trusopt) 2 % ophthalmic solution 1 drop, Each Eye, BID fentaNYL (PF) (Sublimaze) injection 25-50 mcg, Intravenous, intra-Procedure multiple flecainide (Tambocor) tablet 50 mg, Oral, BID insulin aspart (NovoLOG) pen 0-6 Units, Subcutaneous, TID WC insulin glargine (Lantus) pen 8 Units, Subcutaneous, AT BEDTIME iopamidol (Isovue 370) 76 % contrast, Intravenous, intra-Procedure multiple levothyroxine (Synthroid) tablet 50 mcg, Oral, QDAY BEFORE BREAKFAST lidocaine PF (Xylocaine Mpf) 1 % injection, Infiltration, intra-Procedure multiple midazolam (Versed) injection 0.5-2 mg, Intravenous, intra-Procedure multiple pantoprazole EC (Protonix) tablet 40 mg, Oral, AT BEDTIME polyethylene glycol 3350 (Miralax) packet 17 g, Oral, QDAY potassium chloride ER (Klor-Con M) tablet 40 mEq, Oral, QDAY WITH BREAKFAST senna-docusate (Senokot-S) tablet 1 tablet, Oral, BID verapamil CR (Isoptin-SR) tablet 120 mg, Oral, AT BEDTIME vitamin D3-cholecalciferol (Cholecalciferol) 25 MCG (1000 UNITS) tablet 1,000 Units, Oral, QDAY [START ON 10/06/2020] apixaban (Eliquis) tablet 5 mg, Oral, BID Test Results Recent Labs Component Name 09/30/20 0547 09/29/20 0451 09/28/20 1024 09/28/20 0155 WBC 10.3 14.3* - 13.9* HGB 10.7* 11.2* 12.3 12.7 HCT 34.8* 35.0* - 40.0 PLTCOUNT 281 299 - 316 Recent Labs Component Name 09/30/20 0547 09/29/20 0451 09/28/20 1304 09/26/20 1927 SODIUM 133* 132* - 132* POTASSIUM 4.4 3.3* - 3.5 CHLORIDE 104 99 - 96* CO2 21* 24 - 24 BUN 14 18 - 34* CREATININE 0.78 0.83 - 1.09 GLUCOSE 159* 174* - 136* CALCIUM 10.1 9.3 9.6 10.6* ALT 18 21 - 28 ALKPHOS 88 89 - 89 AST 12 17 - 24 TBIL 0.3 0.4 - 0.3 TPROT 5.9* 6.0* - 7.5 EGFR >60 >60 - 48 EGFRAFR >60 >60 - 58 ALBUMIN 3.3 3.4 - 4.2 Micro Neg COVID 19 09/26/20 Urine culture 09/27/20 +ecoli, enterococcus faecalis Imaging 09/26/20 CTA chest: 1. 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 2. ??There is leftward intraventricular septal bowing which may represent right heart strain. 09/29 CXR - CM, o/w lungs are clear, no IF/effusions/PTX - NAD. 09/27/20 ECHO: EF 60-70%, grade 1 DD,Mildly-moderately dilated right ventricle, Evidence of RV strain noted 09/30/20 ECHO - pending. 10/16/20 BL venous doppler- negative Procedures PFTs: PRE: none Nocturnal Oximetry: none Ambulatory oximetry: done on *: O2 sat at rest %: Ambulated ft, O2 sat %. Peripheral IV Right Antecubital (Active) Placement Date/Time: 09/26/20 1446 Orientation: Right Location: Antecubital Name/Credentials of person who placed: DES Bocanegra IV Catheter Size: 20 Gauge Number of days: 2 Puncture Site Femoral (Active) Date/Time: 09/28/20 0904 Name/Credentials of person who placed: Dr. Marcos Azar Orientation: Right Puncture Site Location: Femoral Puncture Type: Venous Number of days: 0 Indwelling Transurethral Urinary Catheter (Active) No Placement Date or Time found. Existing LDA on arrival from: Outside Facility Number of days: Exam General appearance: alert, cooperative & pleasant, no distress, on room air with O2 sat 90-93%,improved with sitting up in bed and deep breathing. HEENT: EOMI, nares patent. Heart: regular rhythm, normal S1 and S2, systolic murmur noted Lungs: breath sounds symmetric; no rales or wheezes, or crackles Abdomen: soft, NTND, with normal bowel sounds Extremities: trace edema to BLE, no redness or warmth Neuro: A&O, UE strength WNL, LE weakness bilaterally Impression: 1. Dyspnea 2. Acute PE with Rt heart strain- s/p suction thrombectomy 09/28 (Precipitating factors for pulmonary embolism may have included recent hospitalization, relative immobilization due to left hip pain and gluteal hematoma and use of anastrozole which can increase risk for pulmonary embolism. No evidence of active malignancy), hemodynamically stable 3. Recent history Lt gluteal hematoma 4. Mildly elevated troponin in BNP related to acute PE is noted. 5. 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 History of malignant neoplasm Lt breast follows with Dr. Gonzalez on Anastrozole 7. Hereditary spastic paraplegia 8. Neuropathy 9. DM 10. Afib 11. Additional hx, HTN, CAD, hx TIA, hypothyroidism ? Recommendations: 1. Continue off O2 once RA O2 sats >= 90%. 2. CXR done yesterday is clear. 3. S/p suction thrombectomy 09/28/20. Has been transitioned from IV heparin to PO Eliquis per primary team. Encouraged f/u with hematology, Dr. Gonzalez for anticoagulation management and review of chemo medications given increased risk VTE 4. S/p Venous dopplers 09/28-negative, deferred IVC filter placement 5. Echo with normal EF, right heart strain noted. Plan for repeat limited echo today per cardiology 6. abx- on Rocephin for UTI 7. PT ordered for monitored ambulation. Encouraged use of IS 8. Additional medical management per primary team. Ok from pulmonary standpoint for DC. Pt can f/u in our office with Dr. Schultz in 2-4 wks. * Dianna Moore RN - 09/30/2020 10:48 AM CDT Pt will have lowered pain scores and no S&S of infection during my shift today. * Ryan He MD - 09/30/2020 7:40 AM CDT Hospitalist Progress Note Admit Date: 09/26/2020 2:28 PM Hospital Day: 4 Clinical Course Saddle embolism, SOB New Symptoms Patient has no new symptoms Data Vitals: 09/29/20 2113 09/29/20 2122 09/30/20 0034 09/30/20 0415 BP: 109/75 123/80 127/64 Pulse: 84 80 73 Resp: 18 Temp: 98 ??F (36.7 ??C) 97.9 ??F (36.6 ??C) SpO2: 92% 91% 90% 90% Weight: Height: Temp (30hrs) Max:98.9 ??F (37.2 ??C) My review of labs, imaging, notes and other tests is significant for Recent Labs Component Name 09/30/20 0547 09/29/20 0451 09/28/20 1024 09/28/20 0155 WBC 10.3 14.3* - 13.9* HGB 10.7* 11.2* 12.3 12.7 HCT 34.8* 35.0* - 40.0 PLTCOUNT 281 299 - 316 Recent Labs Component Name 09/30/20 0547 09/29/20 0451 09/28/20 1304 09/26/20 1927 SODIUM 133* 132* - 132* POTASSIUM 4.4 3.3* - 3.5 CHLORIDE 104 99 - 96* CO2 21* 24 - 24 BUN 14 18 - 34* CREATININE 0.78 0.83 - 1.09 GLUCOSE 159* 174* - 136* CALCIUM 10.1 9.3 9.6 10.6* Exam General appearance: alert, cooperative, no distress Heart: regular rhythm, normal S1 and S2, without murmurs, rubs or gallops Lungs: breath sounds normal and symmetric; no rales or wheezes Abdomen: soft without mass, non-tender, with normal bowel sounds Extremities: no clubbing, 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 Cranial nerves 2-12 grossly normal. Power tone all 4 extremeties normal Assessment and Plan 1. Acute large saddle embolism with possible RV strain: on heparin drip. Will consult with IVR for Possible EKOS providing the fact that she had gluteus hematoma 1 week ago. For EHCO to confirm RV strain. BNP is mildly elevated at 200 and troponin is 0.08 2. Acute hypoxic respiratory failure 2ry to PE: on 1-2 L/min 3. Hyponatremia: mild. On IV fludis, stopped diuretics. 4. DM II: on insulin regimen. Controlled 5. Hypothyroidism: on home meds 6. Hx of Breast cancer: 7. 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 9. HTN: hold HTN meds. 10. GERD: on home meds 11.Hx of TIA: was on plavix before 12. Recent Glueus muscle hematoma. 13. Hypercalcemia: for workup 14. LETA: for workup 15. Primary hyperparathyroidism: Vitamin D and calcium Summary and daily updates: 09/27: For venous doppler, ECHO, heparin, venous doppler, transfer to intermediate unit. Discussed with IVR and cardiology, EKOS might be risky now with a previous recent hematoma. Will monitor and obtain ECHO and decide. Her associate counsel is Dr. Valencia, , he is referring to Dr. Maya. 09/28: For mechanical suction thrombectomy today as RV is very dilated. Continue heparin. Sent for workup for hypercalcemia and LETA. Stable VS and labs, on room air today 09/29: Severe LETA, iron IV, FOBT is pending. Hypercalcemia: low vitamin D, highPTH, primary hyperparathyroidism, added vitamin D and calcium andmonitor calcium level, corrected calcium is 10 today., calcium is. For osteoporosis. Venous doppler is negative, switch to Eliquis. No need for IVC filter. Repeat limited ECHO to asses RV today, if ok then discharge home. PT/OT for HH. UTI grew E.Coli and enterococcus fecalis, switched to amoicillin 09/30: Weak and SOB upon ambulation. PT/OT, continue Eliquis, for a repeated limited ECHO to assess RV functions Amoxicillin for UTI with Enteorcoccus ad E.Coli for 5 days LETA, infused iron, FOBT is pending Calcium and vitamin D for Hyperparathyroidism, PT/OT and possible SNF placement. Peripheral IV Anterior;Left Forearm (Active) Placement Date/Time: 09/28/20 1536 Orientation: Anterior;Left Location: Forearm IV Catheter Size: 22 Gauge Technique: Anatomical Landmarks Number of start attempts: 2 Procedure Tolerance: Well Number of days: 1 Peripheral IV Anterior;Right Forearm (Active) Placement Date/Time: 09/29/20 0800 Orientation: Anterior;Right Location: Forearm IV Catheter Size: 22 Gauge Number of start attempts: 1 Local Anesthetic Used?: Trans Dermal Procedure Tolerance: Well Number of days: 0 Puncture Site Femoral (Active) Date/Time: 09/28/20 0904 Name/Credentials of person who placed: Dr. Marcos Azar Orientation: Right Puncture Site Location: Femoral Puncture Type: Venous Number of days: 1 Indwelling Transurethral Urinary Catheter (Active) No Placement Date or Time found. 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 S1 = HHSTANDARD S2 = HHSOCIAL S3 = HHSAFETY S4 = HHSICK * Zachary Casas RN - 09/30/2020 3:37 AM CDT Shift summary Alert and oriented x4, on 1 liter of oxygen, able to use home cpap for 5 hours, Sinus rhythm, no complaint of pain, schmitt remains with 750 ml urine output. Problem: Fall Risk Goal: Fall risk and fall related injury risk are minimized (interventions related to the fall risk can be found in the flowsheet documentation) Outcome: Progressing Note: Loc will remain safe and free from falls and injury. Problem: Potential for Urinary Catheter-Associated Infection Goal: Signs and Symptoms of urinary catheter-associated infection are avoided Outcome: Progressing Note: Schmitt care every shift Problem: Pain/Discomfort Goal: Patient exhibits reduced pain/discomfort as evidenced by pain scores Outcome: Progressing Note: Pain assessed every 4 hours * Lorraine Garcia RN - 09/29/2020 6:17 PM CDT Shift Summary: Patient A&O3-4. SR on the monitor. 1L nasal cannula at rest. Sitting EOB with physical therapy,patient oxygen saturations 87. Dizzy and weak with ambulation. Physician team notified. No complaints of pain. Up in chair. Able to make needs known. Will continue to monitor. * Torri Teixeira, PT - 09/29/2020 3:54 PM CDT Physical Therapy Evaluation. PT orders received, chart reviewed for diagnosis and medical systems review.. Nursing consents for PT. Explained purpose of PT and patient consented to participate in therapy. PPE worn by staff: gloves;mask - surgical PPE worn by patient: gown - patient, clean SUBJECTIVE: I don't usually get in bed, I sleep in a recliner at home Pt's dtr present and able to assist with PLOF as pt [place] even with hearing aids in. Pt sates she lives with her spouse at home and is independent with mobility with her 4 wheeled walker. Per dtr, pt does not get in/out of showerand recently got a HH aide to assist with ADLs at home. Home Situation: Type of Residence: Private Residence Lives with:: Spouse Steps to Enter: 3 Home Structure: One Story Equipment At Home: CPAP;Walker-2 Wheeled;Wheelchair-Standard;Grab Bars;Walker-4 Wheeled with Seat Prior Level of Functioning: Mobility: Ambulate-In Home ;Independent;With Assistive Device Fallen Within 6 Mos: 2 Have Help at Home?: Yes, there is help at home now How often is assistance provided?: family gets groceries, recently got HH aide that comes daily to assist with ADLs Activity at Home: Sedentary Oxygen at Home: No Pain Assessment: Pain Rating Score #: 0 Patient/family stated goal: return to independence with ambulation OBJECTIVE: Cognition: Orientation Level: Oriented X4 Cognition: Follows Commands-Consistent;Attention/concentration-normal for age;Processing-Appropriate Level of Consciousness-Adult: Alert Participation: Active Participation Precautions: falls, monitor O2, [place] ROM and Strength: AROM - Right Lower Extremity: Within Functional Limits Strength - Right Lower Extremity: Exceptions AROM - Left Lower Extremity: Within Functional Limits Strength - Left Lower Extremity: Exceptions Balance: Sitting - Static: Fair;With Both Upper Extremity's Support Standing - Static: Fair;With Both Upper Extremity's Support Bed Mobility: Supine to Sit: Moderate Assistance Sit to Supine: Activity Does Not Occur (up in chair) Transfers: Sit to Stand: Moderate Assistance;Requires Verbal Cues for Technique Stand to Sit: Moderate Assistance;Requires Verbal Cues for Technique Mobility: Distance Ambulated: 5 FEET Ambulation: Assistive Device: Gait Belt;Walker-2 Wheeled Ambulation: Level of Assistance: Minimum Assistance;Requires Verbal Cues for Safety;Requires Physical Cues for Safety Ambulation: Gait Deviations: Flaca - Decreased;Heel Strike - Decreased;Increased Trunk Flexion;Push Off - Decreased;Shuffling gait;Step Length - Decreased Activity Tolerance/Oxygen Requirements and Vitals: Activity Tolerance: Requires seated rest breaks $ O2 DEVICE: Room Air (increased to 3L for activity) SpO2: 93 % (88 on RA) ASSESSMENT: Pt tolerates session fair. Upon arrival, pt on RA with SpO2 at 88%. Spoke to RN about increasing oxygen for pt to be at least 90% prior to ambulation. Pt demonstrates fair sitting balanceat EOB, noted to have posterior lean which pt able to correct with verbal cues. 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 Activity limited this date by pt report of dizziness. BP taken and 129/53. PerRN and chart review pt with d/c orders this date, however pt is not ready for d/c as she will need continued PT and a walk study before being safe to d/c home. Call light and phone in reach. All lines, monitors, IV's, equipment in place and intact pre and post visit. RNLorraine, notified of patient's performance/location end of session. [...] for further details. RECOMMENDATIONS/PLAN: PT Discharge Recommendations: 24 Hour Supervision;Home Health PT Recommended Transportation Method: Private Car If this is the last PT visit, this note serves as the discharge summary. Torri, PT, DPT [phone] * Enrique Gonzalez MD - 09/29/2020 2:10 PM CDT Courtesy visit Loc Leon??is an 79??y.o. woman with history of TIA, atrial fib, DM, heart murmur, partal seizures, famlial??spastic paraparesis and obesity diagnosed with Stage 1 ([id number]) left breast cancer in August 2017. She has been on anastrozole since September of 2017. On 09/27/2020, she came in with shortness of breath and was found to have a saddle pulmonary embolus. She underwent thrombectomy and has been on heparin drip. She just transition to Eliquis today. Of note, MRI on 09/17/2020 showed questionable left gluteal hematoma. She was referred to Dr Denice Mcleod for further evaluation. This area needs to be closely monitored as might expand during anticoagulation. Discussed with her daughter Giovanni moody over the phone. Enrique Gonzalez MD 09/29/2020 2:25 PM * Javier Martinez, BUFFERER-HOME ORGANIZER - 09/29/2020 12:26 PM CDT [facility] Pulmonary Medicine Progress Note Answering Service: [phone] Pulmonary Progress Note - JOSUÉ Shepherd for INGRIS Collins-C Associated Physician: Dr. Schultz Patient: Loc Leon Admit Date: 09/26/2020 2:28 PM Hospital Day: 3 Reason for Visit: dyspnea with + saddle PE Subjective Patient seen this afternoon lying in bed. Patient on RA O2 sat 89-92%. Noted to improve to 94% whensat up in bed. Patient denies any shortness of breath, denies any new complaints. Afebrile. Addendum: Pt desaturated to 84% with PT this afternoon, with reported dizziness per pt. Data Vitals: 09/29/20 0050 09/29/20 0441 09/29/20 0800 09/29/20 1151 BP: 113/59 111/58 114/57 Pulse: 77 78 82 83 Resp: 15 19 20 16 Temp: 97.7 ??F (36.5 ??C) 97.7 ??F (36.5 ??C) 97.4 ??F (36.3 ??C) 98.9 ??F (37.2 ??C) SpO2: 90% 91% 96% 90% Weight: Height: Temp (30hrs) Max:98.9 ??F (37.2 ??C) Intake/Output Summary (Last 24 hours) at 09/29/2020 1226 Last data filed at 09/29/2020 1145 Gross per 24 hour Intake 1656.69 ml Output 1275 ml Net 381.69 ml Filed Wts: 09/27/20 0031 Weight: 79.4 kg (175 lb) Current Medications Followed by Followed by 0.9% NaCl injection 3 mL, Intracatheter, q8h amitriptyline (Elavil) tablet 50 mg, Oral, AT BEDTIME anastrozole (Arimidex) tablet 1 mg, Oral, QDAY apixaban (Eliquis) tablet 10 mg, Oral, BID atorvastatin (Lipitor) tablet 40 mg, Oral, AT BEDTIME bromfenac Sodium (Prolensa) 0.07 % opthalmic solution 1 drop, Right Eye, QDAY calcium-vitamin D (Os-Mckenna 500 + D) 500-200 mg-unit tablet 1 tablet, Oral, BID WC cefTRIAXone (Rocephin) 1,000 mg in 0.9% NaCl IV 50 mL IVPB, Intravenous, q24h cyanocobalamin (Vitamin B-12) tablet 1,000 mcg, Oral, QDAY dorzolamide (Trusopt) 2 % ophthalmic solution 1 drop, Each Eye, BID fentaNYL (PF) (Sublimaze) injection 25-50 mcg, Intravenous, intra-Procedure multiple flecainide (Tambocor) tablet 50 mg, Oral, BID insulin aspart (NovoLOG) pen 0-6 Units, Subcutaneous, TID WC insulin glargine (Lantus) pen 8 Units, Subcutaneous, AT BEDTIME iopamidol (Isovue 370) 76 % contrast, Intravenous, intra-Procedure multiple levothyroxine (Synthroid) tablet 50 mcg, Oral, QDAY BEFORE BREAKFAST lidocaine PF (Xylocaine Mpf) 1 % injection, Infiltration, intra-Procedure multiple midazolam (Versed) injection 0.5-2 mg, Intravenous, intra-Procedure multiple pantoprazole EC (Protonix) tablet 40 mg, Oral, AT BEDTIME verapamil CR (Isoptin-SR) tablet 120 mg, Oral, AT BEDTIME vitamin D3-cholecalciferol (Cholecalciferol) 25 MCG (1000 UNITS) tablet 1,000 Units, Oral, QDAY [COMPLETED] iron dextran complex (Infed) 25 mg in 0.9% NaCl IV 50.5 mL infusion, Intravenous, Once [COMPLETED] iron dextran complex (Infed) 475 mg in 0.9% NaCl IV 259.5 mL IVPB, Intravenous, Once [] iopamidol (Isovue 370) 76 % contrast 0-150 mL, Intravenous, Contrast - Once [START ON 10/06/2020] apixaban (Eliquis) tablet 5 mg, Oral, BID Test Results Results reviewed, mild leukocytosis, mild anemia,hyponatremia and hypokalemia noted Recent Labs Component Name 09/29/20 0451 09/28/20 1024 09/28/20 0155 09/27/20 0115 WBC 14.3* - 13.9* 17.2* HGB 11.2* 12.3 12.7 12.5 HCT 35.0* - 40.0 39.0 PLTCOUNT 299 - 316 289 Recent Labs Component Name 09/28/20 1304 IRON 17* TIBC 380 Recent Labs Component Name 09/29/20 0451 09/28/20 1304 09/26/20 1927 09/20/20 0526 09/14/20 1553 SODIUM 132* - 132* 136 137 POTASSIUM 3.3* - 3.5 3.4* 3.2* CHLORIDE 99 - 96* 103 98 CO2 24 - 24 23 27 BUN 18 - 34* 23* 34* CREATININE 0.83 - 1.09 0.88 1.32* GLUCOSE 174* - 136* 164* 180* CALCIUM 9.3 9.6 10.6* 9.6 10.3 ALT ALKPHOS 89 - 89 - 85 AST 14 TBIL 0.4 - 0.3 - 0.4 TPROT 6.0* - 7.5 - 7.6 EGFR >60 - 48 >60 39 EGFRAFR >60 - 58 >60 47 ALBUMIN 3.4 - 4.2 - 4.3 Recent Labs Component Name 09/27/20 0455 09/26/20 2257 09/26/20 1927 TROPONINI 0.080* 0.079* 0.092* Recent Labs Component Name 09/26/20 192 BNP 205* Recent Labs Component Name 09/28/20 0155 09/27/20 0115 12/28/16 1814 PT 13.9 14.1 10.1 INR 1.1 1.1 1.0 Recent Labs Component Name 09/28/20 1304 12/30/19 1111 PTHINTACT 167.7* 103* No results for input(s): PHARTPOCT, LYQ0SOG, PO2ART, T5HNEZFB, FIO2, BEART in the last 87700 hours. Invalid input(s): [id number] Micro Neg COVID 19 09/26/20 Urine culture 09/27/20 +ecoli, enterococcus faecalis Imaging 09/26/20 CTA chest: 1. 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 2. ??There is leftward intraventricular septal bowing which may represent right heart strain. ?? 09/27/20 ECHO: EF 60-70%, grade 1 DD,Mildly-moderately dilated right ventricle, Evidence of RV strain noted 10/16/20 BL venous doppler- negative Procedures PFTs: PRE: none Nocturnal Oximetry: none Ambulatory oximetry: done on *: O2 sat at rest %: Ambulated ft, O2 sat %. Peripheral IV Right Antecubital (Active) Placement Date/Time: 09/26/20 1446 Orientation: Right Location: Antecubital Name/Credentials of person who placed: DES Bocanegra IV Catheter Size: 20 Gauge Number of days: 2 Puncture Site Femoral (Active) Date/Time: 09/28/20 0904 Name/Credentials of person who placed: Dr. Marcos Azar Orientation: Right Puncture Site Location: Femoral Puncture Type: Venous Number of days: 0 Indwelling Transurethral Urinary Catheter (Active) No Placement Date or Time found. Existing LDA on arrival from: Outside Facility Number of days: Exam General appearance: alert, cooperative & pleasant, no distress, on room air with O2 sat 89-92%,improved with sitting up in bed HEENT: PERRL, no exudate noted to oropharynx Heart: regular rhythm, normal S1 and S2, systolic murmur noted Lungs: breath sounds symmetric; no rales or wheezes, or crackles Abdomen: soft, NTND, with normal bowel sounds Extremities: trace edema to BLE, no redness or warmth Neuro: A&O, UE strength WNL, LE weakness bilaterally Impression: 1. Dyspnea 2. Acute PE with Rt heart strain- s/p suction thrombectomy 09/28 (Precipitating factors for pulmonary embolism may have included recent hospitalization, relative immobilization due to left hip pain and gluteal hematoma and use of anastrozole which can increase risk for pulmonary embolism. No evidence of active malignancy), hemodynamically stable 3. Recent history Lt gluteal hematoma 4. Mildly elevated troponin in BNP related to acute PE is noted. 5. 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 History of malignant neoplasm Lt breast follows with Dr. Gonzalez on Anastrozole 7. Hereditary spastic paraplegia 8. Neuropathy 9. DM 10. Afib 11. Additional hx, HTN, CAD, hx TIA, hypothyroidism ? Recommendations: 1. Wean oxygen for O2 sats >= 90%- home O2 1L continuous ordered per primary team 2. Due to desaturation and dizziness, plans for stat CXR. 3. S/p suction thrombectomy 09/28/20. Has been transitioned from IV heparin to PO Eliquis per primary team. Encouraged f/u with hematology, Dr. Gonzalez for anticoagulation management and review of chemo medications given increased risk VTE 4. S/p Venous dopplers 09/28-negative, deferred IVC filter placement 5. Echo with normal EF, right heart strain noted. Plan for repeat limited echo today per cardiology 6. abx- on Rocephin for UTI 7. PT ordered for monitored ambulation. Encouraged use of IS 8. Additional medical management per primary team. 9. Hold discharge for today per Dr. Schultz,Hold ambulation with PT for now. Assessment and tx plan d/w Dr. Schultz, pt & daughter Associated attestation - Sara Schultz MD - 09/29/2020 4:14 PM CDT PULMONARY NOTE Patient seen and examined, all pertinent data reviewed. Agree with Insurance Healthcare Consultant note Patient with history of breast cancer on anastrozole, recent hospitalization for right hip pain/ gluteal hematoma discharged off Plavix and aspirin, negative left lower extremity venous Doppler at that time. admitted with acute shortness of breath with workup indicating acute pulmonary embolism/saddle embolus with evidence of mildRV strain however hemodynamically stable with minimal oxygen requirements. Mildly elevated troponin in BNP related to acute PE is noted. Underwent PE suction thrombectomy 09/28 by IVIR . Doing ok today Clinical examination with clear lung dave and stable vital signs Desaturated with movement, room air saturations were 89 percent at rest improved to 95 percent withsitting up and the breathing. No significant lower extremity calf swelling or tenderness : Rafael doppler : no DVT seen B/ LE Repeat echo pending per Cardiology Impression acute pulmonary embolism with RV strain with hemodynamic stability, minimal oxygen requirements on presentation . Precipitating factors for pulmonary embolism may have included recent hospitalization, relative immobilization due to left hip pain and gluteal hematoma and use of anastrozole which May increase risk for pulmonary embolism. No evidence of active malignancy,. COVID-19 is negative, NO DVT on rafael dopplers Needing more oxygen today in part from atelectasis. Repeat x-ray was obtained today after patient had desaturations and dizziness with physical therapyassisted ambulation this afternoon, films were reviewed personally and indicate clear lung dave. Recommendations to continue anticoagulation. Noted patient has been started on Eliquis by Primary service Follow CBC and for any bleeding complications , need to follow gluteal hematoma for any worsening S/P suction thrombectomy by iVIR negative venous Dopplers BLE and role of IVC filter is unclear At this time . May need if any bleeding complications encountered While on AC . Noted patient is on anastrozole per oncology for breast cancer treatment. Patient may need long-term or indefinite anticoagulation If active malignancy , otherwise 6 months may be adequate , patient advised to follow-up with hematology oncology Fall precautions . Oxygen support to keep saturations greater than 90 percent continue pulmonary toilet including incentive spirometry. Physical therapy to follow patient , assisted ambulation and assess gait and balance. Maintain fallprecautions. Supportive care Prognosis guarded Discussed with patient, family at bedside Sara Schultz/ [phone] * Franky Mercer RN - 09/29/2020 10:15 AM CDT Case Management Progress Note Anticipated level of care at discharge: Home Health Care Discharge Plan: Home with [facility], when medically cleared. Patient S/P Main and bilateral lobar PE suction thrombectomy on 09/28/20. Starting anticoagulation; plan for ECHO today. Cardiology note states No IVC filter needed. CM will continue to follow. Basic Needs Assessment (BNA) Score: 13 Anticipated Discharge Date: Anticipated Discharge Date: 09/30/20 Transportation at Discharge: Family Transportation to MD:Family Equipment at Home: Equipment At Home: CPAP;Walker-2 Wheeled;Wheelchair- Standard;Grab Bars Additional DME needed: Hunger Screening: Within the past 12 months the food we bought just didn't last and we didn't have money to get more.: Never true Within the past 12 months we worried whether our food would run out before we got money to buy more: Never true Food Bank Resources Provided: Not offered to the patient Medication affordability concerns: [place]: Franky Mercer RN * Melodie Maya MD - 09/29/2020 8:21 AM CDT Cardiology Progress Note Admit Date: 09/26/2020 Hospital Day: 3 Follow up for: Shortness of breath. Symptoms She feels well this morning. No shortness of breath or chest pain. Tele: SR Vital signs Vitals: 09/28/20 2001 09/29/20 0050 09/29/20 0441 09/29/20 0800 BP: 130/79 113/59 111/58 Pulse: 88 77 78 82 Resp: Temp: 97.9 ??F (36.6 ??C) 97.7 ??F (36.5 ??C) 97.7 ??F (36.5 ??C) 97.4 ??F (36.3 ??C) SpO2: 90% 90% 91% 96% Weight: Height: Intake/Output Summary (Last 24 hours) at 09/29/2020 0822 Last data filed at 09/29/2020 0441 Gross per 24 hour Intake 1098.33 ml Output 1275 ml Net -176.67 ml Exam 09/29/2020: Lungs: Clear to auscultation and percussion Heart: S1 and S2 normal. No murmur. No gallop or rub Abdomen: Soft, nontender, bowel sounds active. Extremities: No edema ?? SCHEDULED MEDICATIONS: ?? Followed by ?? 0.9% NaCl injection 3 mL, Intracatheter, q8h ?? amitriptyline (Elavil) tablet 50 mg, Oral, AT BEDTIME ?? anastrozole (Arimidex) tablet 1 mg, Oral, QDAY ?? atorvastatin (Lipitor) tablet 40 mg, Oral, AT BEDTIME ?? bromfenac Sodium (Prolensa) 0.07 % opthalmic solution 1 drop, Right Eye, QDAY ?? calcium-vitamin D (Os-Mckenna 500 + D) 500-200 mg-unit tablet 1 tablet, Oral, BID WC ?? cefTRIAXone (Rocephin) 1,000 mg in 0.9% NaCl IV 50 mL IVPB, Intravenous, q24h ?? cyanocobalamin (Vitamin B-12) tablet 1,000 mcg, Oral, QDAY ?? dorzolamide (Trusopt) 2 % ophthalmic solution 1 drop, Each Eye, BID ?? fentaNYL (PF) (Sublimaze) injection 25-50 mcg, Intravenous, intra-Procedure multiple ?? flecainide (Tambocor) tablet 50 mg, Oral, BID ?? insulin aspart (NovoLOG) pen 0-6 Units, Subcutaneous, TID WC ?? insulin glargine (Lantus) pen 8 Units, Subcutaneous, AT BEDTIME ?? iopamidol (Isovue 370) 76 % contrast, Intravenous, intra-Procedure multiple ?? iron dextran complex (Infed) 475 mg in 0.9% NaCl IV 259.5 mL IVPB, Intravenous, Once ?? levothyroxine (Synthroid) tablet 50 mcg, Oral, QDAY BEFORE BREAKFAST ?? lidocaine PF (Xylocaine Mpf) 1 % injection, Infiltration, intra-Procedure multiple ?? midazolam (Versed) injection 0.5-2 mg, Intravenous, intra-Procedure multiple ?? pantoprazole EC (Protonix) tablet 40 mg, Oral, AT BEDTIME ?? verapamil CR (Isoptin-SR) tablet 120 mg, Oral, AT BEDTIME ?? vitamin D3-cholecalciferol (Cholecalciferol) 25 MCG (1000 UNITS) tablet 1,000 Units, Oral, QDAY ?? [COMPLETED] iron dextran complex (Infed) 25 mg in 0.9% NaCl IV 50.5 mL infusion, Intravenous, Once ?? [] iopamidol (Isovue 370) 76 % contrast 0-150 mL, Intravenous, Contrast - Once ?? CONTINUOUS MEDICATIONS: ?? heparin 100 unit/mL in dextrose 5 % infusion, Intravenous, Continuous ?? PRN MEDICATIONS: ?? 0.9% NaCl injection 1-10 mL, Intracatheter, PRN ?? albuterol HFA (Proventil;Ventolin;Proair) 108 (90 Base) MCG/ACT inhaler 2 puff, Inhalation, q4h PRN ?? dextrose IV 12.5-25 g, Intravenous, PRN ?? glucagon (Glucagen) injection 1 mg, Intramuscular, PRN ?? glucose (Diabetic Use) (Dex4 Glucose) oral liquid, Oral, PRN ?? glucose (Diabetic Use) oral gel, Oral, PRN ?? heparin 100 units/mL bolus from bag, Intravenous, BOLUS FROM BAG PRN Labs Recent Labs Component Name 09/29/20 0451 09/26/20 1927 09/20/20 0526 SODIUM 132* 132* 136 POTASSIUM 3.3* 3.5 3.4* CHLORIDE 99 96* 103 CO2 24 24 23 BUN 18 34* 23* CREATININE 0.83 1.09 0.88 GLUCOSE 174* 136* 164* Recent Labs Component Name 09/28/20 0155 09/27/20 0115 12/28/16 1814 PT 13.9 14.1 10.1 INR 1.1 1.1 1.0 Recent Labs Component Name 09/29/20 0451 09/28/20 1024 09/28/20 0155 09/27/20 0115 WBC 14.3* - 13.9* 17.2* HGB 11.2* 12.3 12.7 12.5 HCT 35.0* - 40.0 39.0 PLTCOUNT 299 - 316 289 Recent Labs Component Name 09/26/20 1927 BNP 205* Cardiographics ECG 09/26/20: Normal sinus rhythm with left anterior fascicular block. Septal infarct, age undetermined. Possible Lateral infarct, age undetermined Echocardiogram: ??? Left ventricle is normal in size. ? Normal global systolic left ventricular function. ? EF 60%. ? EF range is 60% - 70%. ? Left ventricle wall thickness is increased. ? There are no regional wall motion abnormalities. ? Doppler parameters are consistent with abnormal left ventricular relaxation (Grade 1 diastolic dysfunction). ?? Right Ventricle: Mildly-moderately dilated right ventricle. Right ventricular wall thickness is normal. Right ventricular systolic function is mildly reduced. Evidence of RV strain noted . Pulmonary artery pressure normal. Vascular bilateral venous doppler 09/29/20: - There is no evidence of an acute deep or superficial venous thrombosis in either the right or left lower extremity. Assessment: ?? Saddle PE s/p thrombectomy ?? Severe dilated RV with strain (on my review) ?? Recent history of gluteal hematoma ?? A-fib not on anticoagulation due to fall risk ?? Prior left breast malignancy followed by Dr. Gonzalez ?? Hereditary spastic paraplegia with neuropathy ?? Diabetes ?? CAD ?? Plan: ?? Change heparin gtt to Eliquis 5 mg po BID. ?? Will repeat limited echo today. ?? No need for IVC filter given negative lower extremity venous dopplers. Melodie Maya MD, FACC 09/29/2020 * Rosemary Craig RN - 09/29/2020 7:20 AM CDT Problem: Potential for Urinary Catheter-Associated Infection Goal: Signs and Symptoms of urinary catheter-associated infection are avoided 09/28/20202149 by Rosemary Craig RN Outcome: Progressing Problem: Bleeding Precautions Goal: Excessive bleeding will be minimized Outcome: Progressing Problem: Fall Risk Goal: Fall risk and fall related injury risk are minimized (interventions related to the fall risk can be found in the flowsheet documentation) 09/28/20202149 by Rosemary Craig RN Outcome: Progressing * Lorraine Garcia RN - 09/29/2020 7:15 AM CDT Problem: Fall Risk Goal: Fall risk and fall related injury risk are minimized (interventions related to the fall risk can be found in the flowsheet documentation) Outcome: Progressing Problem: Potential for Urinary Catheter-Associated Infection Goal: Signs and Symptoms of urinary catheter-associated infection are avoided Outcome: Progressing Problem: Bleeding Precautions Goal: Excessive bleeding will be minimized Outcome: Progressing Goal: Precautionary measures taken to prevent bleeding Outcome: Progressing * Ryan He MD - 09/29/2020 5:29 AM CDT Hospitalist Progress Note Admit Date: 09/26/2020 2:28 PM Hospital Day: 3 Clinical Course Saddle embolism, SOB New Symptoms Patient has no new symptoms Data Vitals: 09/28/20 1530 09/28/20 2001 09/29/20 0050 09/29/20 0441 BP: 118/63 130/79 113/59 Pulse: 95 88 77 78 Resp: 18 20 15 19 Temp: 97.9 ??F (36.6 ??C) 97.7 ??F (36.5 ??C) 97.7 ??F (36.5 ??C) SpO2: 95% 90% 90% 91% Weight: Height: Temp (30hrs) Max:98.6 ??F (37 ??C) My review of labs, imaging, notes and other tests is significant for Recent Labs Component Name 09/29/20 0451 09/28/20 1024 09/28/20 0155 09/27/20 0115 WBC 14.3* - 13.9* 17.2* HGB 11.2* 12.3 12.7 12.5 HCT 35.0* - 40.0 39.0 PLTCOUNT 299 - 316 289 Recent Labs Component Name 09/28/20 1304 09/26/20 1927 09/20/20 0526 09/19/20 0419 SODIUM - 132* 136 135* POTASSIUM - 3.5 3.4* 3.5 CHLORIDE - 96* 103 103 CO2 - 24 23 22* BUN - 34* 23* 25* CREATININE - 1.09 0.88 0.80 GLUCOSE - 136* 164* 171* CALCIUM 9.6 10.6* 9.6 9.8 Exam General appearance: alert, cooperative, no distress Heart: regular rhythm, normal S1 and S2, without murmurs, rubs or gallops Lungs: breath sounds normal and symmetric; no rales or wheezes Abdomen: soft without mass, non-tender, with normal bowel sounds Extremities: no clubbing, 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 Cranial nerves 2-12 grossly normal. Power tone all 4 extremeties normal Assessment and Plan 1. Acute large saddle embolism with possible RV strain: on heparin drip. Will consult with IVR for Possible EKOS providing the fact that she had gluteus hematoma 1 week ago. For EHCO to confirm RV strain. BNP is mildly elevated at 200 and troponin is 0.08 2. Acute hypoxic respiratory failure 2ry to PE: on 1-2 L/min 3. Hyponatremia: mild. On IV fludis, stopped diuretics. 4. DM II: on insulin regimen. Controlled 5. Hypothyroidism: on home meds 6. Hx of Breast cancer: 7. 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 9. HTN: hold HTN meds. 10. GERD: on home meds 11.Hx of TIA: was on plavix before 12. Recent Glueus muscle hematoma. 13. Hypercalcemia: for workup 14. LETA: for workup 15. Primary hyperparathyroidism: Vitamin D and calcium Summary and daily updates: 09/27: For venous doppler, ECHO, heparin, venous doppler, transfer to intermediate unit. Discussed with IVR and cardiology, EKOS might be risky now with a previous recent hematoma. Will monitor and obtain ECHO and decide. Her associate counsel is Dr. Valencia, , he is referring to Dr. Maya. 09/28: For mechanical suction thrombectomy today as RV is very dilated. Continue heparin. Sent for workup for hypercalcemia and LETA. Stable VS and labs, on room air today 09/29: Severe LETA, iron IV, FOBT is pending. Hypercalcemia: low vitamin D, highPTH, primary hyperparathyroidism, added vitamin D and calcium andmonitor calcium level, corrected calcium is 10 today., calcium is. For osteoporosis. Venous doppler is negative, switch to Eliquis. No need for IVC filter. Repeat limited ECHO to asses RV today, if ok then discharge home. PT/OT for HH. UTI grew E.Coli and enterococcus fecalis, switched to amoicillin Peripheral IV Anterior;Left Forearm (Active) Placement Date/Time: 09/28/20 1536 Orientation: Anterior;Left Location: Forearm IV Catheter Size: 22 Gauge Technique: Anatomical Landmarks Number of start attempts: 2 Procedure Tolerance: Well Number of days: 0 Puncture Site Femoral (Active) Date/Time: 09/28/20 0904 Name/Credentials of person who placed: Dr. Marcos Azar Orientation: Right Puncture Site Location: Femoral Puncture Type: Venous Number of days: 0 Indwelling Transurethral Urinary Catheter (Active) No Placement Date or Time found. 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 S1 = HHSTANDARD S2 = HHSOCIAL S3 = HHSAFETY S4 = HHSICK * Sara Schultz MD - 09/28/2020 3:50 PM CDT PULMONARY NOTE ?? Patient seen and examined, all pertinent data reviewed. full Insurance Healthcare Consultant note to follow . Patient with history of breast cancer on anastrozole, recent hospitalization for right hip pain/ gluteal hematoma discharged off Plavix and aspirin, negative left lower extremity venous Doppler at that time. Now admitted with acute shortness of breath with workup indicating acute pulmonary embolism/saddle embolus with evidence of mildRV strain however hemodynamically stable with minimal oxygen requirements. Mildly elevated troponin in BNP related to acute PE is noted. Clinical examination with clear lung dave and stable vital signs currently on 1 LOf oxygen with saturations of 93-95 percent. No significant lower extremity calf swelling or tenderness Underwent PE suction thrombectomy today by IVIR . : Rafael doppler : no DVT seen B/ LE Impression acute pulmonary embolism with RV strain with hemodynamic stability, minimal oxygen requirements and can be weaned to RA . Precipitating factors for pulmonary embolism may have included recent hospitalization, relative immobilization due to left hip pain and gluteal hematoma and use of anastrozole which May increase risk for pulmonary embolism. No evidence of active malignancy . COVID-19 is negative NO DVT on rafael dopplers today . Recommendations to continue anticoagulation. Continue IV heparin : Prefer heparinoids currently given submassive PE/ burden of blood clots. Oral Eliquis may eventually be started on discharge but notadequately studied in this population with large clot burden and avoid in acute setting . Follow CBC and for any bleeding complications , need to follow gluteal hematoma for any worsening S/P suction thrombectomy by iVIR negative venous Dopplers BLE and role of IVC filter is unclear At this time . May need if any bleeding complications encountered While on AC . Noted patient is on anastrozole per oncology for breast cancer treatment. Patient may need long-term or indefinite anticoagulation If active malignancy , otherwise 6 months may be adequate Fall precautions . Supportive care ??have d/w Dr Tyrone Gonzalez ( pt's oncologist) ?? Sara Schultz/ [phone] * Javier Martinez APRN-HOME ORGANIZER - 09/28/2020 2:47 PM CDT [facility] Pulmonary Medicine Progress Note Answering Service: [phone] Pulmonary Progress Note - Javier Martinez ANP-C Associated Physician: Dr. Schultz Patient: Loc Leon Admit Date: 09/26/2020 2:28 PM Hospital Day: 2 Reason for Visit: dyspnea with + saddle PE Subjective Patient seen this afternoon sitting up in bed eating lunch. Patient found on 2L NC with O2 sat 96%,attempted to wean to RA but patient O2 89-90% on RA, left patient on 1L NC with O2 sat of 94%. Patient denies any chest pain or shortness of breath. Her notes breathing seems less labored than yesterday. S/p suction thrombectomy per radiology earlier today 09/28/20 and tolerated procedure well, remains on hep gtts. Cardiology is considering IVC filter placement tomorrow. Patient has no newcomplaints. UOP net neg. Afebrile. Data Vitals: 09/28/20 1230 09/28/20 1245 09/28/20 1300 09/28/20 1315 BP: 98/47 106/59 109/50 Pulse: 86 89 88 83 Resp: 17 17 14 15 Temp: SpO2: 97% 98% 97% 98% Weight: Height: Temp (30hrs) Max:98.3 ??F (36.8 ??C) Intake/Output Summary (Last 24 hours) at 09/28/2020 1447 Last data filed at 09/28/2020 0620 Gross per 24 hour Intake -- Output 1900 ml Net -1900 ml Filed Wts: 09/27/20 0031 Weight: 79.4 kg (175 lb) Current Medications 0.9% NaCl injection 3 mL, Intracatheter, q8h amitriptyline (Elavil) tablet 50 mg, Oral, AT BEDTIME anastrozole (Arimidex) tablet 1 mg, Oral, QDAY atorvastatin (Lipitor) tablet 40 mg, Oral, AT BEDTIME bromfenac Sodium (Prolensa) 0.07 % opthalmic solution 1 drop, Right Eye, QDAY cefTRIAXone (Rocephin) 1,000 mg in 0.9% NaCl IV 50 mL IVPB, Intravenous, q24h cyanocobalamin (Vitamin B-12) tablet 1,000 mcg, Oral, QDAY dorzolamide (Trusopt) 2 % ophthalmic solution 1 drop, Each Eye, BID fentaNYL (PF) (Sublimaze) injection 25-50 mcg, Intravenous, intra-Procedure multiple flecainide (Tambocor) tablet 50 mg, Oral, BID insulin aspart (NovoLOG) pen 0-6 Units, Subcutaneous, TID WC insulin glargine (Lantus) pen 8 Units, Subcutaneous, AT BEDTIME iopamidol (Isovue 370) 76 % contrast 0-150 mL, Intravenous, Contrast - Once iopamidol (Isovue 370) 76 % contrast, Intravenous, intra-Procedure multiple levothyroxine (Synthroid) tablet 50 mcg, Oral, QDAY BEFORE BREAKFAST lidocaine PF (Xylocaine Mpf) 1 % injection, Infiltration, intra-Procedure multiple midazolam (Versed) injection 0.5-2 mg, Intravenous, intra-Procedure multiple pantoprazole EC (Protonix) tablet 40 mg, Oral, AT BEDTIME verapamil CR (Isoptin-SR) tablet 120 mg, Oral, AT BEDTIME vitamin D3-cholecalciferol (Cholecalciferol) 25 MCG (1000 UNITS) tablet 1,000 Units, Oral, QDAY heparin 100 unit/mL in dextrose 5 % infusion, Intravenous, Continuous Test Results Results reviewed, mild leukocytosis, elevated PTH & low iron noted Recent Labs Component Name 09/28/20 1024 09/28/20 0155 09/27/20 0115 09/26/201926 WBC - 13.9* 17.2* 15.6* HGB 12.3 12.7 12.5 13.5 HCT - 40.0 39.0 42.0 PLTCOUNT - 316 289 323 Recent Labs Component Name 09/28/20 1304 IRON 17* TIBC 380 Recent Labs Component Name 09/28/20 1304 09/26/20 1927 09/20/20 0526 09/19/20 0419 09/14/20 1553 12/30/19 1111 11/26/19 0945 SODIUM - 132* 136 135* 137 - 139 POTASSIUM - 3.5 3.4* 3.5 3.2* - 3.7 CHLORIDE - 96* 103 103 98 - 100 CO2 - 24 23 22* 27 - 29 BUN - 34* 23* 25* 34* - 26* CREATININE - 1.09 0.88 0.80 1.32* - 1.00 GLUCOSE - 136* 164* 171* 180* - 142* CALCIUM 9.6 10.6* 9.6 9.8 10.3 - 11.3* ALT - 28 - - - 22 ALKPHOS - 89 - - 85 - 93 AST - 24 - - 14 - 17 TBIL - 0.3 - - 0.4 - 0.3 TPROT - 7.5 - - 7.6 - 7.0 EGFR - 48 >60 >60 39 - 53 EGFRAFR - 58 >60 >60 47 - >60 ALBUMIN - 4.2 - - 4.3 - 4.0 - = values in this interval not displayed. Recent Labs Component Name 09/27/20 0455 09/26/20 2257 09/26/20 192 TROPONINI 0.080* 0.079* 0.092* Recent Labs Component Name 09/26/20 192 BNP 205* Recent Labs Component Name 09/28/20 0155 09/27/20 0115 12/28/16 1814 PT 13.9 14.1 10.1 INR 1.1 1.1 1.0 Recent Labs Component Name 09/28/20 1304 12/30/19 1111 PTHINTACT 167.7* 103* No results for input(s): PHARTPOCT, ACK2ZWI, PO2ART, O5ISDNOS, FIO2, BEART in the last 18574 hours. Invalid input(s): SUP5GPR Micro Neg COVID 19 09/26/20 Urine culture 09/27/20 +[facility] 09/26/20 CTA chest: 1. 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 2. ??There is leftward intraventricular septal bowing which may represent right heart strain. ?? 09/27/20 ECHO: EF 60-70%, grade 1 DD,Mildly-moderately dilated right ventricle, Evidence of RV strain noted 10/16/20 BL venous doppler- prelim results negative Procedures PFTs: PRE: none Nocturnal Oximetry: none Ambulatory oximetry: done on *: O2 sat at rest %: Ambulated ft, O2 sat %. Peripheral IV Right Antecubital (Active) Placement Date/Time: 09/26/20 1446 Orientation: Right Location: Antecubital Name/Credentials of person who placed: DES Bocanegra IV Catheter Size: 20 Gauge Number of days: 2 Puncture Site Femoral (Active) Date/Time: 09/28/20 0904 Name/Credentials of person who placed: Dr. Marcos Azar Orientation: Right Puncture Site Location: Femoral Puncture Type: Venous Number of days: 0 Indwelling Transurethral Urinary Catheter (Active) No Placement Date or Time found. Existing LDA on arrival from: Outside Facility Number of days: Exam General appearance: alert, cooperative & pleasant, no distress, sitting up in bed on 2L NC withO2 sat 96%, weaned to 1L NC with O2 sat 94% HEENT: PERRL, no exudate noted to oropharynx Heart: regular rhythm, normal S1 and S2, systolic murmur noted Lungs: breath sounds symmetric; no rales or wheezes, fine crackles to bilat bases Abdomen: soft, NTND, with normal bowel sounds Extremities: no edema x 4, no redness/warmth noted today Neuro: A&O, UE strength WNL, LE weakness bilaterally Impression: 1. Dyspnea 2. Acute PE with Rt heart strain- s/p suction thrombectomy 09/28 (Precipitating factors for pulmonary embolism may have included recent hospitalization, relative immobilization due to left hip pain and gluteal hematoma and use of anastrozole which can increase risk for pulmonary embolism. No evidence of active malignancy) 3. Recent history Lt gluteal hematoma and now found with 4. Mildly elevated troponin in BNP related to acute PE is noted. 5. History of Afib not on home anticoagulation 6. History of malignant neoplasm Lt breast follows with Dr. Gonzalez on Anastrozole 7. Hereditary spastic paraplegia 8. Neuropathy 9. DM 10. Afib 11. Additional hx, HTN, CAD, hx TIA, hypothyroidism ? Recommendations: 1. Wean oxygen for O2 sats >= 90%. 2. Continue Heparin gtts as ordered. Follow labs. Pt will need transition to LT anticoagulation on Eliquis at discharge, though not studied in this population with large clot burden. Monitor H/H & ?hematoma 3. S/p suction thrombectomy 09/28/20. Plan for possible IVC filter tomorrow per cardiology -reviewedwith Dr. Schultz 4. S/p Venous dopplers today 09/28- prelim negative but full report pending 5. Echo with normal EF, right heart strain noted. Plan for repeat limited echo tomorrow per cardiology 6. abx- on Rocephin for UTI 7. PT OT when able following procedures. Encouraged use of IS 8. Oncology following: review chemo meds as increased risk for VTE 9. Additional medical management per primary team. Assessment and tx plan d/w Dr. Schultz, Dr. Davis, pts nurse and Pt. Associated attestation - Sara Schultz MD - 09/29/2020 4:50 PM CDT See my note done separately * Lorraine Garcia RN - 09/28/2020 2:44 PM CDT Problem: Fall Risk Goal: Fall risk and fall related injury risk are minimized (interventions related to the fall risk can be found in the flowsheet documentation) Outcome: Progressing Problem: Potential for Urinary Catheter-Associated Infection Goal: Signs and Symptoms of urinary catheter-associated infection are avoided Outcome: Progressing * Lorraine Garcia RN - 09/28/2020 9:03 AM CDT Patient transferred to IVR at start of shift. Unable to do full assessment prior to patient transfer to IVR. Patient groin site WNL. Denies pain. Incentive spirometor at bedside. Heparin drip continues. New IV placed. 1L nasal cannula. Will continue to monitor. * Ryan He MD - 09/28/2020 6:38 AM CDT Hospitalist Progress Note Admit Date: 09/26/2020 2:28 PM Hospital Day: 2 Clinical Course Saddle embolism, SOB New Symptoms Patient has no new symptoms Data Vitals: 09/27/20 1909 09/27/20 2358 09/28/20 0013 09/28/20 0445 BP: 114/50 126/60 130/62 123/55 Pulse: 98 86 77 81 Resp: 22 22 20 19 Temp: 97.8 ??F (36.6 ??C) 98.3 ??F (36.8 ??C) 97.3 ??F (36.3 ??C) 97.4 ??F (36.3 ??C) SpO2: 93% 91% 91% 90% Weight: Height: Temp (30hrs) Max:98.3 ??F (36.8 ??C) My review of labs, imaging, notes and other tests is significant for Recent Labs Component Name 09/28/20 0155 09/27/20 0115 09/26/201926 WBC 13.9* 17.2* 15.6* HGB 12.7 12.5 13.5 HCT 40.0 39.0 42.0 PLTCOUNT 316 289 323 Recent Labs Component Name 09/26/20192609/20/2052509/19/20 0419 SODIUM 132* 136 135* POTASSIUM 3.5 3.4* 3.5 CHLORIDE 96* 103 103 CO2 24 23 22* BUN 34* 23* 25* CREATININE 1.09 0.88 0.80 GLUCOSE 136* 164* 171* CALCIUM 10.6* 9.6 9.8 Exam General appearance: alert, cooperative, no distress Heart: regular rhythm, normal S1 and S2, without murmurs, rubs or gallops Lungs: breath sounds normal and symmetric; no rales or wheezes Abdomen: soft without mass, non-tender, with normal bowel sounds Extremities: no clubbing, 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 Cranial nerves 2-12 grossly normal. Power tone all 4 extremeties normal Assessment and Plan 1. Acute large saddle embolism with possible RV strain: on heparin drip. Will consult with IVR for Possible EKOS providing the fact that she had gluteus hematoma 1 week ago. For EHCO to confirm RV strain. BNP is mildly elevated at 200 and troponin is 0.08 2. Acute hypoxic respiratory failure 2ry to PE: on 1-2 L/min 3. Hyponatremia: mild. On IV fludis, stopped diuretics. 4. DM II: on insulin regimen. Controlled 5. Hypothyroidism: on home meds 6. Hx of Breast cancer: 7. 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 9. HTN: hold HTN meds. 10. GERD: on home meds 11.Hx of TIA: was on plavix before 12. Recent Glueus muscle hematoma. 13. Hypercalcemia: for workup 14. LETA: for workup Summary and daily updates: 09/27: For venous doppler, ECHO, heparin, venous doppler, transfer to intermediate unit. Discussed with IVR and cardiology, EKOS might be risky now with a previous recent hematoma. Will monitor and obtain ECHO and decide. Her associate counsel is Dr. Valencia, , he is referring to Dr. Maya. 09/28: For mechanical suction thrombectomy today as RV is very dilated. Continue heparin. Sent for workup for hypercalcemia and LETA. Stable VS and labs, on room air today Peripheral IV Right Antecubital (Active) Placement Date/Time: 09/26/20 1446 Orientation: Right Location: Antecubital Name/Credentials of person who placed: DES Bocanegra IV Catheter Size: 20 Gauge Number of days: 1 Indwelling Transurethral Urinary Catheter (Active) No Placement Date or Time found. 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 S1 = HHSTANDARD S2 = HHSOCIAL S3 = HHSAFETY S4 = HHSICK * Radha Dickerson RN - 09/27/2020 11:04 PM CDT Problem: Fall Risk Goal: Fall risk and fall related injury risk are minimized (interventions related to the fall risk can be found in the flowsheet documentation) Outcome: Progressing Problem: Potential for Urinary Catheter-Associated Infection Goal: Signs and Symptoms of urinary catheter-associated infection are avoided Outcome: Progressing * Melodie Maya MD - 09/27/2020 5:31 PM CDT Cardiology Focus Note: Reviewed case and limited echocardiogram. Her RV is significantly dilated with McConnel's sign present. Discussed case with Dr. Hernandez. Will hold off on IVC filter placement tomorrow. Plan for penumbra to her pulmonary arteries (Dr. Hernandez to discuss with patient prior to proceeding). Will make her NPO at midnight for potential procedure in the morning. Continue heparin gtt in the mean time. Melodie Maya MD * Donavan Brandi Heidy - 09/27/2020 4:10 PM CDT Echo Completed Today * Nelson Azar MD - 09/27/2020 2:55 PM CDT IR note: Consulted regarding possible CDT for PE. While pe study shows a saddle PE, there is good perfusion around the saddle embolus to both lungs, and overall clot burden at most is moderate. The patient does show however evidence of right heart strain on CT w/ straightening of the septum and dilatation of the right heart. Echo is pending. Given her minimal oxygen requirement and satisfactory bp will hold on catheter directed therapy at this time, particularly in the setting of a recent fall and a left hip hematoma. If the patent declines on anticoagulation, we can revisit CDT/EKOS. Marcos Azar * Laisha Rios RN - 09/27/2020 2:35 PM CDT Family called: they spoke with the pt's associate counsel, Dr. Martins, who is partners with Dr. Maya.They are requesting Dr. Maya to be consulted for Cardio to evaluate pt and complete proposed procedure. * Ryan eH MD - 09/27/2020 1:36 PM CDT Hospitalist Progress Note Admit Date: 09/26/2020 2:28 PM Hospital Day: 1 Clinical Course Saddle embolism, SOB New Symptoms Patient has no new symptoms Data Vitals: 09/27/20 0151 09/27/20 0305 09/27/20 0730 09/27/20 1216 BP: 120/60 115/50 109/47 Pulse: 83 84 92 90 Resp: 18 16 18 18 Temp: 97.2 ??F (36.2 ??C) 97.4 ??F (36.3 ??C) 97.3 ??F (36.3 ??C) SpO2: 93% 100% 91% 95% Weight: Height: Temp (30hrs) Max:97.4 ??F (36.3 ??C) My review of labs, imaging, notes and other tests is significant for Recent Labs Component Name 09/27/20 0115 09/26/20192609/20/20 0526 WBC 17.2* 15.6* 11.8* HGB 12.5 13.5 11.6* HCT 39.0 42.0 37.1 PLTCOUNT 289 323 319 Recent Labs Component Name 09/26/20192609/20/20 0526 09/19/20 0419 SODIUM 132* 136 135* POTASSIUM 3.5 3.4* 3.5 CHLORIDE 96* 103 103 CO2 24 23 22* BUN 34* 23* 25* CREATININE 1.09 0.88 0.80 GLUCOSE 136* 164* 171* CALCIUM 10.6* 9.6 9.8 Exam General appearance: alert, cooperative, no distress Heart: regular rhythm, normal S1 and S2, without murmurs, rubs or gallops Lungs: breath sounds normal and symmetric; no rales or wheezes Abdomen: soft without mass, non-tender, with normal bowel sounds Extremities: no clubbing, 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 Cranial nerves 2-12 grossly normal. Power tone all 4 extremeties normal Assessment and Plan 1. Acute large saddle embolism with possible RV strain: on heparin drip. Will consult with IVR for Possible EKOS providing the fact that she had gluteus hematoma 1 week ago. For EHCO to confirm RV strain. BNP is mildly elevated at 200 and troponin is 0.08 2. Acute hypoxic respiratory failure 2ry to PE: on 1-2 L/min 3. Hyponatremia: mild. On IV fludis, stopped diuretics. 4. DM II: on insulin regimen. Controlled 5. Hypothyroidism: on home meds 6. Hx of Breast cancer: 7. HLD: on statin 8. 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 9. HTN: hold HTN meds. 10. GERD: on home meds 11.Hx of TIA: was on plavix before 12. Recent Glueus muscle hematoma. Summary and daily updates: 09/27: For venous doppler, ECHO, heparin, venous doppler, transfer to intermediate unit. Discussed with IVR and cardiology, EKOS might be risky now with a previous recent hematoma. Will monitor and obtain ECHO and decide. Her associate counsel is Dr. Valencia, , he is referring to Dr. Maya. Peripheral IV Right Antecubital (Active) Placement Date/Time: 09/26/20 1446 Orientation: Right Location: Antecubital Name/Credentials of person who placed: DES Bocanegra IV Catheter Size: 20 Gauge Number of days: 0 Indwelling Transurethral Urinary Catheter (Active) No Placement Date or Time found. 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 S1 = HHSTANDARD S2 = HHSOCIAL S3 = HHSAFETY S4 = HHSICK * Cheri Fernandez RN - 09/27/2020 1:02 PM CDT This patient was admitted on 09/26/2020 in OPO status. It would be expected that this patient will discharge within 23 hours. If the patient is not medically stable for discharge and will require inpatient stay >2 midnights, please document the need for continued stay in the EHR. OPO x14 hours at time of writing. Case Management Observation Progress Note Discharge Plan: home with Home Health Care Patient had been hospitalized here 09/14-09/20 for hip pain. She was to follow up with ortho physician. Patient was discharged to home with home health care ( [facility]) A Case Management chart review has been conducted. CM spoke with the patient and discussed PLOF, POC and anticipated DC plans. Medicare Rights were reviewed and a copy of the CABELLO letter was provided. Prior Level of Functioning: Patient lives with Spouse Friend(s);Self;Other (Comment) ([facility]) who will provide support at discharge. Patient requires assistance with Mobility;Transfers;Housekeeping;Meal Preparation;Shopping. Physical Limitations; Hard of Hearing. Patient or telephone claims representative requests care coordination reach out to family or caregiver listed above regarding discharge planning and at time of discharge? Yes Emergency/Family contact: Extended Emergency Contact Information Primary Emergency Contact: Thiago Leon Address: [address] [place] [address] Relation: Spouse Secondary Emergency Contact: Ange Reyes [facility] Relation: Daughter 09/26/2020 Pt presented to the ED with c/o 1. Suspected COVID-19 virus infection 2. SOB (shortness of breath) 3. Elevated troponin 4. Acute congestive heart failure, unspecified heart failure type 5. Pulmonary embolism, other, unspecified chronicity, unspecified whether acute cor pulmonale present Recent Labs Component Name 09/27/20 0115 09/26/20192609/20/20 0526 WBC 17.2* 15.6* 11.8* HGB 12.5 13.5 11.6* HCT 39.0 42.0 37.1 PLTCOUNT 289 323 319 Recent Labs Component Name 09/27/20 0455 09/26/20 2257 09/26/20192612/30/16 0430 CK - - - 89 TROPONINI 0.080* 0.079* 0.092* - Recent Labs Component Name 01/27/17 1355 NITRITE NEGATIVE Basic Needs Assessment (BNA) Score: 12 Anticipated level of care at discharge: Home Health Care Anticipated level of care provider: [facility] Anticipated Discharge Date: 09/28/20 Transportation at Discharge: Family Transportation to MD: Family Equipment At Home: CPAP;Walker-2 Wheeled;Wheelchair-Standard;Grab Bars PCP: Theresa Camargo MD Follow-up Physician Appointment Made: To be determined If no appointment, reason and action: To be determined Additional DME needed: None at this time DME Provider: Pharmacy benefit Yes Medication affordability concerns: No Medication needs: No Hunger Screening: Within the past 12 months the food we bought just didn't last and we didn't have money to get more.: Never true Within the past 12 months we worried whether our food would run out before we got money to buy more: Never true Food Bank Resources Provided: Not offered to the patient Hand Endband Cutter consult: No [facility] consult: No Home Health consult: Yes Home Health Care PIERCE Tsang, manager crisis [facility] [phone] * Je Huber RN - 09/27/2020 10:47 AM CDT Problem: Fall Risk Goal: Fall risk and fall related injury risk are minimized (interventions related to the fall risk can be found in the flowsheet documentation) 09/27/2020 1044 by Je Huber RN Outcome: Progressing Note: Loc remained in bed with the alarm on. 09/27/2020 1044 by Je Huber RN Outcome: Progressing Problem: Potential for Urinary Catheter-Associated Infection Goal: Signs and Symptoms of urinary catheter-associated infection are avoided Outcome: Progressing Note: Loc is having routine care done to her catheter to prevent UTI Problem: Isolation Goal: Prevent Transmission of Infection Outcome: Completed Note: COVID negative documented in this encounter H&P Notes * Nelson Azar MD - 09/28/2020 8:42 AM CDT INPATIENT INVASIVE PROCEDURE H&P / SEDATION PLAN OF CARE Chief Complaint / History of Present Illness: Submassive PE with severe dilatation right heart on Echo, hypoxic, and troponin elevation. Discussed with Dr. Maya who is concerned with severity of right heart strain on echo. With recent fall, hesistant to administer TPA. CAD. Recent fall with left hip hematoma. H/o TIA, GI bleed, DM, and breast cancer. Discussed risks with patient and daughter.Informed consent obtained. Procedure Planned: PE suction thrombectomy. Past Medical History Illnesses: Past Medical History: Diagnosis Date ??? Asthma [...] T1cN0(i-)M0, stage IA. ER pos 97% (strong), GA pos 23% (moderate), Her-2 neg (1+ on [...] Type 2 diabetes mellitus without complication 01/07/2011 Allergies: Allergies Allergen Reactions ??? Advair Diskus YEAS INFECTION ??? Aricept [Donepezil] Other I dont remember ??? Diltiazem Swelling Patient takes verapamil as home med ??? Metformin Diarrhea ??? Black Pepper [Piper Longum] Unknown ??? Fluticasone Diarrhea ??? Salmeterol Diarrhea ??? Sotalol Other Hair loss Medications: Current Facility-Administered Medications Medication Dose Route Frequency Provider Last Rate Last Admin ??? 0.9% NaCl infusion Intravenous intra-Procedure continuous Nelson Azar MD ??? 0.9% NaCl injection 3 mL 3 mL Intracatheter q8h Darien Mendes, BUFFERER-HOME ORGANIZER 3 mL at 09/27/202004 And ??? 0.9% NaCl injection 1-10 mL 1-10 mL Intracatheter PRN Darien Mendes BUFFERER-HOME ORGANIZER 10 mL at 09/26/20 2313 ??? albuterol HFA (Proventil;Ventolin;Proair) 108 (90 Base) MCG/ACT inhaler 2 puff 2 puff Inhalation q4h PRN Sheyla Sparks, BUFFERER-HOME ORGANIZER ??? amitriptyline (Elavil) tablet 50 mg 50 mg Oral AT BEDTIME Sheyla Sparks APRN-HOME ORGANIZER 50 mg at 09/27/202004 ??? anastrozole (Arimidex) tablet 1 mg 1 mg Oral QDAY Sheyla Sparks, BUFFERER-HOME ORGANIZER 1 mg at 09/27/20 0833 ??? atorvastatin (Lipitor) tablet 40 mg 40 mg Oral AT BEDTIME Sheyla Sparks APRN-HOME ORGANIZER 40 mg at 09/27/202005 ??? bromfenac Sodium (Prolensa) 0.07 % opthalmic solution 1 drop 1 drop Right Eye QDAY Ryan He MD 1 drop at 09/27/20 1357 ??? cefTRIAXone (Rocephin) 1,000 mg in 0.9% NaCl IV 50 mL IVPB 1 g Intravenous q24h Ryan He MD Stopped at 09/27/20 1634 ??? cyanocobalamin (Vitamin B-12) tablet 1,000 mcg 1,000 mcg Oral QDAY Sheyla Sparks, BUFFERER-HOME ORGANIZER 1,000 mcg at 09/27/20 0833 ??? dextrose IV 12.5-25 g 12.5-25 g Intravenous PRN Sheyla Sparks, BUFFERER-HOME ORGANIZER ??? dorzolamide (Trusopt) 2 % ophthalmic solution 1 drop 1 drop Each Eye BID Sheyla Sparks, BUFFERER-HOME ORGANIZER 1 drop at 09/27/20 2344 ??? fentaNYL (PF) (Sublimaze) injection 25-50 mcg 25-50 mcg Intravenous intra- Procedure multiple Nelson Azar MD ??? fentaNYL (Sublimaze) injection 0.05 mg/mL ADS Med ??? flecainide (Tambocor) tablet 50 mg 50 mg Oral BID Sheyla Sparks, BUFFERER-HOME ORGANIZER 50 mg at 09/27/202005 ??? glucagon (Glucagen) injection 1 mg 1 mg Intramuscular PRN Sheyla Sparks APRN-HOME ORGANIZER ??? glucose (Diabetic Use) (Dex4 Glucose) oral liquid Oral PRN Sheyla Sparks APRN-HOME ORGANIZER ??? glucose (Diabetic Use) oral gel Oral PRN Sheyla Sparks, BUFFERER-HOME ORGANIZER ??? heparin 100 unit/mL in dextrose 5 % infusion 700-2,100 Units/hr Intravenous Continuous James Harrell MD 13.5 mL/hr at 09/27/20 1345 1,350 Units/hr at 09/27/20 1345 ??? heparin 100 units/mL bolus from bag 3,000-6,000 Units Intravenous BOLUS FROM BAG PRN James Harrell MD 3,000 Units at 09/27/20 1347 ??? insulin aspart (NovoLOG) pen 0-6 Units 0-6 Units Subcutaneous TID WC Sheyla Sparks APRN-CNP 2Units at 09/27/20 1552 ??? insulin glargine (Lantus) pen 8 Units 8 Units Subcutaneous AT BEDTIME Sheyla Sparks APRN-CNP 8 Units at 09/27/20 2140 ??? iopamidol (Isovue 370) 76 % contrast 0-150 mL 0-150 mL Intravenous Contrast - Once Emily Cedeno MD 62 mL at 09/26/20 2303 ??? iopamidol (Isovue 370) 76 % contrast Intravenous intra-Procedure multiple Nelson Azar MD ??? levothyroxine (Synthroid) tablet 50 mcg 50 mcg Oral QDAY BEFORE BREAKFAST Sheyla Sparks APRN-HOME ORGANIZER 50 mcg at 09/27/20 0646 ??? lidocaine (Xylocaine PF) 1% injection ADS Med ??? lidocaine PF (Xylocaine Mpf) 1 % injection Infiltration intra-Procedure multiple Nelson Azar MD ??? midazolam (Versed) 1 mg/mL injection ADS Med ??? midazolam (Versed) injection 0.5-2 mg 0.5-2 mg Intravenous intra-Procedure multiple Nelson Azar MD ??? pantoprazole EC (Protonix) tablet 40 mg 40 mg Oral AT BEDTIME Sheyla Sparks APRN-SARA 40 mg at09/27/202005 ??? verapamil CR (Isoptin-SR) tablet 120 mg 120 mg Oral AT BEDTIME Sheyla Sparks APRN-SARA 120 mg at 09/27/202004 ??? vitamin D3-cholecalciferol (Cholecalciferol) 25 MCG (1000 UNITS) tablet 1,000 Units 1,000 UnitsOral QDAY Sheyla Sparks APRN-CNP 1,000 Units at 09/27/20 0833 EXAM: BP 113/57 Pulse 87 Temp 97.4 ??F (36.3 ??C) (Oral) Resp 22 Ht 1.651 m (5' 5 ) Wt 79.4 kg (175 lb) SpO2 90% BMI 29.12 kg/m2 General appearance: alert, cooperative, no distress Heart: regular rhythm Lungs: breath sounds normal Extremities: no edema Sedation: Fentanyl and Versed 1% plain lidocaine Expected Level: Moderate Sedation Indication: Sedation is required to allow for performance of procedure. Consent: Risks, benefits and alternatives were discussed with patient and consent for procedure wasobtained. PO Intake: Regular Meal > 8 hours ASA Class: Class 3 - Severe Systemic Disease, Definite Functional Limitations Airway: Patent Monitoring: constant attendance by RN until patient recovered. History and Physical updated and reviewed on 09/28/2020. ASA Status Class 3 - Severe Systemic Disease, Definite Functional Limitations * Sheyla Sparks APRN-CNP - 09/27/2020 3:14 AM CDT History and Physical [facility] 09/26/2020 Patient's Primary Care Physician : Theresa Camargo MD Admitting Provider : Mahad Walsh MD Name: Loc Leon Age: [age] year old Race: Sex: female Subjective: History of Present Illness: This is a 79 year old year old female with a PMH of asthma, A.fib not on anticoag, breast cancer, CAD, DM2, duodenal ulcer, glaucoma, TIA, hereditary spastic paraplegia, HTN, neuropathy, chronic schmitt, hypothyroid, CATY who was admitted on 09/26/2020 secondary toSOB. Patient states symptoms began about 1 week ago. States she noticed SOB and swelling everywhere . Patient has chronic swelling to legs but noted swelling to abdomen. Also states she has had nonproductive cough. Note, patient was recently hospitalized 09/14/20 and found Left gluteus medius with acute or subacute hematoma. Patient was seen by her PCP who sent her to ED for CXR. Denies F/C/N/V/D, abdominal pain, CP, CHARLES, headache, back pain, dysuria. In the ED, lab work remarkable for BNP 205, trop 0.092, 0.079, Na 132, Glucose 136, D. Dimer 1.32, WBC, 15.6. CXR neg. CTA chest shows saddle PE which extends to the right upper lobar and segmental arteries as well as the Left upper and Lower lobar and segmental arteries. Patient started on Heparingtt in ED. Cardiology consulted. Patient is admitted for further management. Review of Systems: A 14 point review of systems was performed and was negative except for what is stated on the History of Present Illness. Past Medical History: Diagnosis Date ??? Asthma [...] T1cN0(i-)M0, stage IA. ER pos 97% (strong), GA pos 23% (moderate), Her-2 neg (1+ on [...] AND LT ARM ??? 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 Smoking status: Never Smoker ??? Smokeless tobacco: Never Used Substance Use Topics ??? Alcohol use: No Alcohol/week: 0.0 standard drinks Family History Problem Relation Name Age of Onset ??? Cancer - Breast Mother ??? CAD (Coronary Artery Disease) Father CHF ??? CAD (Coronary Artery Disease) Brother CHF Medications Prior to Admission Medication Sig Dispense [...] 90 tablet 3 ??? BD PEN NEEDLE MADDI U/F 32G [...] Salmeterol Diarrhea ??? Sotalol Other Hair loss Objective: Patient Vitals for the past 8 hrs: BP Temp Temp src Pulse Resp SpO2 Weight 09/27/20 0305 120/60 97.2 ??F (36.2 ??C) Axillary 84 16 100 % -- 09/27/20 0151 -- -- -- 83 18 93 % -- 09/27/20 0145 128/68 -- -- -- -- 93 % -- 09/27/20 0045 120/68 -- -- 84 18 92 % -- 09/27/20 0031 -- -- -- -- -- -- 79.4 kg (175 lb) 09/26/20 2318 131/67 -- -- -- -- -- -- 09/26/20 194 132/70 -- -- -- -- -- -- 09/26/201943 -- -- -- 91 17 93 % -- No intake or output data in the 24 hours ending 09/27/20 0314 General: alert, cooperative, no acute distress HEENT: Normocephalic, PERRLA, anicteric sclerae, moist mucous membranes Neck: Supple, no lymphadenopathy, no jugular venous distention Heart: regular rhythm, normal S1 and S2, without murmurs, rubs or gallops Lungs: clear to auscultation bilaterally; no rales, crackles, or wheezes Abdomen: soft, non-tender, non-distended, (+) BS x 4 Extremities: no clubbing, cyanosis, or edema, 1+ BLE edema : chronic indwelling schmitt catheter [employer] CL[employer]SROOM TEACHER: A x O x 3. CN II-XII grossly normal. Power and tone all 4 limbs grossly normal. paraplegic Data Review Recent Labs Component Name 09/27/20 0115 03/05/19 1301 WBC 17.2* 7.0 RBC 4.97 4.69 HGB 12.5 12.6 HCT 39.0 41.0 MCV 78.5* 87.4 MCH 25.2* 26.9 MCHC 32.1 30.7* RDW - 16.3* RDWCV 16.2* - PLTCOUNT 289 319 NRBC - 0 Recent Labs Component Name 09/26/20 1927 09/20/20 0526 09/19/20 0419 09/14/20 1553 12/30/19 1111 11/26/19 0945 SODIUM 132* 136 135* 137 - 139 POTASSIUM 3.5 3.4* 3.5 3.2* - 3.7 CHLORIDE 96* 103 103 98 - 100 CO2 24 23 22* 27 - 29 BUN 34* 23* 25* 34* - 26* CREATININE 1.09 0.88 0.80 1.32* - 1.00 GLUCOSE 136* 164* 171* 180* - 142* CALCIUM 10.6* 9.6 9.8 10.3 - 11.3* ALBUMIN 4.2 - - 4.3 - 4.0 ALKPHOS 89 - - 85 - 93 ALT 28 - - 21 - 22 AST 24 - - 14 - 17 TBIL 0.3 - - 0.4 - 0.3 TPROT 7.5 - - 7.6 - 7.0 EGFR 48 >60 >60 39 - 53 - = values in this interval not displayed. No results for input(s): TROPONIN in the last 70128 hours. Medical Records in [facility] reviewed and pertinent records in Care Everywhere from outside hospitals reviewed. Assessment and Plan: Bilateral saddle PE- POA -- CTA chest shows saddle PE which extends to the right upper lobar and segmental arteries as well as the Left upper and Lower lobar and segmental arteries. -- consult Pulmonology -- on Heparin gtt -- on tele -- follow SOB+ Elevated BNP- POA -- BNP 205 -- check Echo -- does not appear severely overloaded, will give Lasix IV 1 -- on tele -- Cardiology consulted -- follow Elevated trop- POA -- trops 0.092, 0.079 -- trend -- follow Hyponatremia- POA -- Na 132 -- follow Cough + Leukocytosis +suspected Covid 19- POA -- WBC 15.6 -- CXR neg -- check procalcitonin, ferritin, LDH, CRP, lactic acid -- follow DM -- Glucose 136 -- hold home Invokana, Januvia, Glimierid -- glycemic protocol w/SSI + Lantus GERD -- on PPI Chronic BLE edema -- continue home Spironolactone HTN -- stable -- continue home Verapamil Hypothyroid -- continue home Synthroid Hx breat cancer -- continue home Anastrozole -- followed outpatient Hereditary spastic paraplegia -- chronic schmitt -- followed outpatient HLD -- on Statin DVT Prophylaxis -SCDs. -on Heparin gtt Code Status and Advanced Directives: -Power of prosecuting attorney for healthcare on file -Discussed with patient and is full code. Patient's Residence Prior to Hospital Admission: Home Patient's Desire of Where Patient Wants to go Upon Discharge: Home Patient's Functional Status Prior to Admission: Ambulatory 20 minutes of time was spent [id number] with the patient in obtaining the history, discussion of test results, discussion of treatment options and plan, and answering questions. All of the patient's questions were answered to their satisfaction. The patient is admitted with a diagnosis or diagnoses of bilateral saddle PE, SOB, elevated BNP, hyponatremia, suspected covid 19, elevated trop and current medical needs include anticoagulation, cardiology eval, pulm eval . The patient has the following complex medical factors: . Due to these medical issues it is anticipated that the patient will require greater than two midnights in the hospital. MARINO PinedoC [employer] documented in this encounter Procedure Notes * Ike Messer RN - 10/01/2020 8:24 AM CDT Mobile Task consulted to place peripheral IV. Peripheral IV inserted on first attempt with ultrasound guidance. DES Swan aware. * Nelson Azar MD - 09/28/2020 11:02 AM CDTAssociated Order(s): IR PULMONARY ANGIOGRAM BILAT IVR Post-Operative/Procedure Progress Note Surgeon: Nelson Azar MD Pre-Procedure diagnosis: Submassive PE Post-Procedure diagnosis:Same Anesthesia: Local and IV Sedation Technical procedure performed: Main and bilateral lobar PE suction thrombectomy Findings: Considerable clot aspirated from main and lobar pulmonary arteries. Status: Stable Drain or Pack: None Additional information/Complications:None Estimated blood loss: 400 mLs Specimen(s) removed: saddle pe and bilateral main/lobar clot Operative note was dictated along with the film interpretation in PACS Additional notes:The patient tolerated the procedure well without incident or complication and was returned to Floor in satisfactory condition. During the post-procedure debrief all intra-procedure verbal order medication ordered by the proceduralist were reviewed and authenticated by the provider. Time out and final pre-procedure assessment completed immediately prior to start of procedure. documented in this encounter Consult Notes * Ludy Shankar - 10/04/2020 3:59 PM CDTAssociated Order(s): IP CONSULT TO HOME HEALTH CARE Patient has been discharged to . Discharge paperwork faxed. Spoke to Kia who was notified patient discharged. Thank you for the referral. Alanna Shankar [facility] * Ludy Shankar - 09/28/2020 11:21 AM CDT Received phone call from Anthony with [facility] stating patient will be a resumption of care. Will updatethem upon patient's discharge. Alanna Shankar [facility] * Ludy Shankar - 09/28/2020 11:14 AM CDT Received home care orders, referral sent to [facility] as patient was previously open with them. Awaiting verification that patient is currently open with [facility]. Face sheet, orders, & admitting H&P were faxed. Ludy Shankar [facility] * Melodie Maya MD - 09/28/2020 8:47 AM CDTAssociated Order(s): IP CONSULT TO CARDIOLOGY Cardiology Consultation Note Reason for Consultation: Shortness of breath. History of Present Illness: The patient is a very pleasant 79 year old female who presents to [facility] with complaints of shortness of breath that has been on going for the past week. She endorsed swelling in her lower extiermties and abdominal compartment. Patient has known demyelinating disease that has left her limited use of her lower extremities. Patient arrived to the ER and underwent CT/PE protocol which showed saddle embolism. Due to history of recent gluteal hematoma, ECOS / TPA infusion was deferred. Statecho was obtained which showed significant RV strain with McConnel's sign. After discussion with interventional radiology, patient was taken to IR for pneumbra and had successful extraction of clot. She is feeling much better on my evaluation. No chest pain or shortness of breath. Old records reviewed. Readmission Risk Score: If there is no SENIOR SOLUTIONS CONSULTANT Total Score indicated, this patient has yet to be assessed for Readmission Risk or the BNA Score was < 10. If the patient has been assessed, the score is: Past Medical History: Diagnosis Date ??? Asthma [...] T1cN0(i-)M0, stage IA. ER pos 97% (strong), GA pos 23% (moderate), Her-2 neg (1+ on [...] 90 tablet 3 ??? BD PEN NEEDLE MADDI U/F 32G [...] standard drinks ??? Drug use: No Family History: Family History Problem Relation Name Age of Onset ??? Cancer - Breast Mother ??? CAD (Coronary Artery Disease) Father CHF ??? CAD (Coronary Artery Disease) Brother CHF Review of Symptoms: Constitutional: Negative for fever, chills, malaise/fatigue and diaphoresis. Psychiatric: Negative for depression and anxiety. Skin: Negative for rash and itching. HENT: Negative for headaches, lightheadedness, and congestion. Negative for vertigo. Eyes: Negative for blurred vision and itching. Cardiovascular: As above. Respiratory: Negative for cough and sputum production. Positive for shortness of breath on admission) Gastrointestinal: Negative for nausea, vomiting, abdominal pain and diarrhea. Musculoskeletal: Negative for muscle weakness, extremity redness or swelling. Neurological: Negative for dizziness, focal weakness, tremors and loss of consciousness. Physical Exam: BP 113/57 Pulse 87 Temp 97.4 ??F (36.3 ??C) (Oral) Resp 22 Ht 1.651 m (5' 5 ) Wt 79.4 kg (175 lb) SpO2 90% BMI 29.12 kg/m2 General: Well developed, well nourished, in no acute distress, oriented to person, place, and time Skin: Warm and dry, no jaundice Head: Normocephalic, oral mucosa and conjunctivae normal Eyes: Pupils equal, no xanthelasma Neck: No thyromegaly or bruits. Carotid pulses 2+ Lungs: Clear to auscultation and percussion. Respirations unlabored Cardiac: PMI normal. JVP normal. S1 normal, S2 normal, no murmur, no gallop or rub Abd: Overweight, soft, nontender, BS active Extremities: No clubbing, cyanosis. No edema. Radial pulses 2+ Musculoskeletal: Deferred Neurologic: Deferred Cardiographics: ECG 09/26/20: Normal sinus rhythm with left anterior fascicular block. Septal infarct, age undetermined. Possible Lateral infarct, age undetermined Echocardiogram: ??? Left ventricle is normal in size. ??? Normal global systolic left ventricular function. ??? EF 60%. ??? EF range is 60% - 70%. ??? Left ventricle wall thickness is increased. ??? There are no regional wall motion abnormalities. ??? Doppler parameters are consistent with abnormal left ventricular relaxation (Grade 1 diastolic dysfunction). Right Ventricle: Mildly-moderately dilated right ventricle. Right ventricular wall thickness is normal. Right ventricular systolic function is mildly reduced. Evidence of RV strain noted . Pulmonary artery pressure normal. My review of labs, imaging, notes and other tests is significant for Recent Labs Component Name 09/28/20 0155 09/27/20 0115 09/26/201926 WBC 13.9* 17.2* 15.6* HGB 12.7 12.5 13.5 HCT 40.0 39.0 42.0 PLTCOUNT 316 289 323 Recent Labs Component Name 09/26/20192609/20/20 0526 09/19/20 0419 SODIUM 132* 136 135* POTASSIUM 3.5 3.4* 3.5 CHLORIDE 96* 103 103 CO2 24 23 22* BUN 34* 23* 25* CREATININE 1.09 0.88 0.80 GLUCOSE 136* 164* 171* CALCIUM 10.6* 9.6 9.8 Recent Labs Component Name 09/28/20 0155 09/27/20 0115 12/28/16 1814 INR 1.1 1.1 1.0 Recent Labs Component Name 09/26/201926 BNP 205* Recent Labs Component Name 11/26/19 0855 06/12/17 0823 12/30/16 0430 CHOL 124 113 89 TRIG 183* 148 114 HDL 32* 35* 34* LDLCALC 55 55 32 Recent Labs Component Name 05/05/20 1353 11/26/19 0855 11/06/18 1043 TSH 2.74 2.812 2.9182 Recent Labs Component Name 09/26/20192609/14/20 1553 11/26/19 0945 ALBUMIN 4.2 4.3 4.0 ALKPHOS 89 85 93 ALT 28 21 22 AST 24 14 17 TBIL 0.3 0.4 0.3 TPROT 7.5 7.6 7.0 CXR 09/26/20 (reviewed by me): - No active disease Assessment: ?? Saddle PE s/p thrombectomy ?? Severe dilated RV with strain (on my review) ?? Recent history of gluteal hematoma ?? A-fib not on anticoagulation due to fall risk ?? Prior left breast malignancy followed by Dr. Gonzalez ?? Hereditary spastic paraplegia with neuropathy ?? Diabetes ?? CAD Plan: ?? Continue with anticoagulation. ?? Venous lower extremity dopplers bilaterally are pending. ?? Will repeat limited echo tomorrow. ?? Continue to monitor on telemetry. ?? Possible IVC filter tomorrow. ?? NPO at midnight. Melodie Maya MD, [facility], 09/28/2020 1:08 PM * Javier Martinez, [facility]FFER[facility] - 09/27/2020 10:53 AM CDTAssociated Order(s): IP CONSULT TO SULFURIC [employer] PLANT SUPERVISOR Pulmonary Consultation Note Javier Martinez, ANP-C for Dr. Schultz Name: Loc Leon CSN:[id number] Admit Date: 09/26/2020 : 1940 Consult Date : 09/27/20 Room:[address] [place] [address]. Attending Phys: Ryan He MD Consulting Phys: MD Antoine Referring Phys: MD Ryan Reason for Consultation: shortness of breath with + saddle PE History of Present Illness: Loc Leon is an 79 year old, White/ female admitted on 09/26 with shortness of breath Pt with increased SOB and swelling for past week and was instructed to report to ED per PCP for ? pneumonia. Pt with history of Afib not on anticoagulants. Pt apparently with history of LE swelling with recent abdominal swelling and non prod cough when seen by [facility] and noted creps. Pt apparently in hospital 09/14 to 09/20 for hip pain and possible hematoma and was to follow with ortho and oncology and taken off plavix/asa. Pt reported to me increased dyspnea and back pain led her to call her PCP who suggested she come to ED. She reports limited ambulation due to underlying neuromuscular problem. Also on chemo, anastrozole for breast cancer from 2 years ago. On admission CXR was neg for acute disease, CTA with saddle PE to RU lobar and segmental arteries and Lupper and lower lobar and segmental artieries and started on heparin gtts in ED. Admission labs with WBC 15.6, sodium 132, glu 136, Ddimer 1.32, elevated trops, BNP 205. PMH: with multiple comorbities including asthma, Afib, TIA, HTN, CAD, DMT2, hereditary spastic paraplegia, neuropathy, chronic schmitt, hypothyroid, history malignant breast CA follows with [facility], history pneumonia Rt lung 2018 and f/u CT chest with persistent RML infiltrate, noted plans to considerf/u with pulmonary. She denies any history PE/DVT. Denies hemoptysis. When seen pt now weaned to 1L NC with O2 sats 93%. Remains on heparin gtts and denies current CP, dyspnea, back or abdominal pain. Pt with noted erythema to LE edema with mild edema which she reportsis baseline for her. Past Medical History: Diagnosis Date ??? Asthma [...] T1cN0(i-)M0, stage IA. ER pos 97% (strong), GA pos 23% (moderate), Her-2 neg (1+ on [...] ??? CAD (Coronary Artery Disease) Brother CHF No FH h/o lung disease Social History Socioeconomic History ??? Marital status: Spouse name: Not on file ??? Number of children: 3 ??? Years of education: Not on file ??? Highest education level: Not on file Occupational History ??? 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 Smoking status: [...] Gatherings with Friends and Family: ??? Attends Islam Services: ??? Active Member of Clubs or Organizations: ??? Attends Club or Organization Meetings: ??? Marital Status: Intimate Partner Violence: ??? Fear of Current or Ex-Partner: ??? Emotionally Abused: ??? Physically Abused: ??? Sexually Abused: Allergies Allergen Reactions ??? Advair Diskus YEAS INFECTION ??? Aricept [Donepezil] Other I dont remember ??? Diltiazem Swelling Patient takes verapamil as home med ??? Metformin Diarrhea ??? Black Pepper [[place]per [place]] Unknown ??? Fluticasone Diarrhea ??? Salmeterol Diarrhea ??? Sotalol Other Hair loss Medications Prior to Admission Medication Sig Dispense [...] 90 tablet 3 ??? BD PEN NEEDLE MADDI U/F 32G [...] Take 1 packet by mouth once daily MEDICATIONS FOR CURRENT ENCOUNTER: ?? SCHEDULED MEDICATIONS: ?? And ?? 0.9% NaCl injection 3 mL, Intracatheter, q8h ?? amitriptyline (Elavil) tablet 50 mg, Oral, AT BEDTIME ?? anastrozole (Arimidex) tablet 1 mg, Oral, QDAY ?? atorvastatin (Lipitor) tablet 40 mg, Oral, AT BEDTIME ?? cyanocobalamin (Vitamin B-12) tablet 1,000 mcg, Oral, QDAY ?? dorzolamide (Trusopt) 2 % ophthalmic solution 1 drop, Each Eye, BID ?? flecainide (Tambocor) tablet 50 mg, Oral, BID ?? insulin aspart (NovoLOG) pen 0-6 Units, Subcutaneous, TID WC ?? insulin glargine (Lantus) pen 8 Units, Subcutaneous, AT BEDTIME ?? iopamidol (Isovue 370) 76 % contrast 0-150 mL, Intravenous, Contrast - Once ?? levothyroxine (Synthroid) tablet 50 mcg, Oral, QDAY BEFORE BREAKFAST ?? pantoprazole EC (Protonix) tablet 40 mg, Oral, AT BEDTIME ?? potassium chloride (Klor-Con) packet 20 mEq, Oral, QDAY WITH BREAKFAST ?? spironolactone (Aldactone) tablet 25 mg, Oral, QDAY ?? verapamil CR (Isoptin-SR) tablet 120 mg, Oral, AT BEDTIME ?? vitamin D3-cholecalciferol (Cholecalciferol) 25 MCG (1000 UNITS) tablet 1,000 Units, Oral, QDAY ?? [COMPLETED] aspirin tablet 325 mg, Oral, Now ?? [COMPLETED] furosemide (Lasix) injection 40 mg, Intravenous, Once ?? [COMPLETED] heparin 100 units/mL bolus from bag, Intravenous, BOLUS FROM BAG ONCE ?? [] 0.9% NaCl IV Flush Bag, Intravenous, Once ?? CONTINUOUS MEDICATIONS: ?? heparin 100 unit/mL in dextrose 5 % infusion, Intravenous, Continuous ?? PRN MEDICATIONS: ?? 0.9% NaCl injection 0-10 mL, Intracatheter, Once PRN ?? 0.9% NaCl injection 1-10 mL, Intracatheter, PRN ?? albuterol HFA (Proventil;Ventolin;Proair) 108 (90 Base) MCG/ACT inhaler 2 puff, Inhalation, q4h PRN ?? dextrose IV 12.5-25 g, Intravenous, PRN ?? glucagon (Glucagen) injection 1 mg, Intramuscular, PRN ?? glucose (Diabetic Use) (Dex4 Glucose) oral liquid, Oral, PRN ?? glucose (Diabetic Use) oral gel, Oral, PRN ?? heparin 100 units/mL bolus from bag, Intravenous, BOLUS FROM BAG PRN Review of Systems: as noted in HPI. Remainder of 12 point ROS is negative. Physical Exam: General: in no acute distress Vital Signs: Patient Vitals for the past 6 hrs: Temp Pulse Resp BP BP Method 09/27/20 0730 97.4 ??F (36.3 ??C) 92 18 115/50 Automatic HEENT: PERRL, nares are patent, oropharynx clear Neck: supple, trachea midline, no JVD, neck masses, or adenopathy Chest: chest wall excursion symmetrical, auscultation reveals normal breath sounds, no crackles or wheezes, no chest wall tenderness or masses Heart: S1 S2, RRR, no murmurs, rubs, or gallops Abdomen: soft, NT, ND, no hepatoslenomegaly or mass appreciated, + bowel sounds Extremities: no clubbing, cyanosis, or edema Neurologic: awake, A&O x 3, grossly nonfocal exam Skin: no acute rash Lab Data Reviewed: elevated WBC with PE, Recent Labs Component Name 09/27/20 0115 09/26/20192609/20/20525 WBC 17.2* 15.6* 11.8* HGB 12.5 13.5 11.6* HCT 39.0 42.0 37.1 PLTCOUNT 289 323 319 Recent Labs Component Name 09/26/20192609/20/20 0526 09/19/20 0419 SODIUM 132* 136 135* POTASSIUM 3.5 3.4* 3.5 CHLORIDE 96* 103 103 CO2 24 23 22* BUN 34* 23* 25* CREATININE 1.09 0.88 0.80 GLUCOSE 136* 164* 171* CALCIUM 10.6* 9.6 9.8 EGFR 48 >60 >60 EGFRAFR 58 >60 >60 Recent Labs Component Name 09/27/20 0455 09/26/20 2257 09/26/201926 TROPONINI 0.080* 0.079* 0.092* Recent Labs Component Name 09/26/201926 BNP 205* Recent Labs Component Name 09/27/20 0115 12/28/16 1814 INR 1.1 1.0 Recent Labs Component Name 09/27/20 0733 09/27/20114 PTT 83.2* 25.3 Micro Data: Neg COVID 19 Imagin09/26/20 CTA chest: 1. There is saddle pulmonary embolism which extends to the right upper lobar and segmental arteries as well as the left upper and lower lobar and segmental arteries. 2. There is leftward intraventricular septal bowing which may represent right heart strain. 09/27/20 ECHO: pending Impression: 1. Dyspnea 2. Recent history Lt gluteal hematoma and now found with 3. Saddle PE per CTA chest 4. History of Afib not on home anticoagulation 5. History of malignant neoplasm Lt breast follows with Dr. Gonzalez on chemo Anastrozole 6. Hereditary spastic paraplegia 7. Neuropathy 8. DM 9. CAD Recommendations: 1. Wean oxygen for O2 sats >= 90%. 2. Continue Heparin gtts as ordered. Follow labs. Pt will need transition to LT anticoagulation as Eliquis or Xarelto. 3. Await results of ECHO 4. Up out of bed in am. PT OT in am. 5. Oncology following: review chemo meds Assessment and tx plan d/w , Dr. Davis, pt's spouse, and pt Thank you for the consult. Will follow along during this hospitalization. Javier Martinez, BUFFERER-HOME ORGANIZER Associated attestation - Sara Schultz MD - 09/27/2020 5:10 PM CDT PULMONARY NOTE Patient seen and examined, all pertinent data reviewed. Agree with above assessment and plan by the INDUSTRIAL TRACTOR DRIVER. Patient with history of breast cancer on anastrozole, recent hospitalization for right hip pain/ gluteal hematoma discharged off Plavix and aspirin, negative left lower extremity venous Doppler at that time. Now admitted with acute shortness of breath with workup indicating acute pulmonary embolism/saddle embolus with evidence of mildRV strain however hemodynamically stable with minimal oxygen requirements. Mildly elevated troponin in BNP related to acute PE is noted. Clinical examination with clear lung dave and stable vital signs currently on 1 LOf oxygen with saturations of 93-95 percent. No significant lower extremity calf swelling or tenderness Impression acute pulmonary embolism with RV strain with hemodynamic stability, minimal oxygen requirements. Precipitating factors for pulmonary embolism may have included recent hospitalization, relative immobilization due to left hip pain and gluteal hematoma and use of anastrozole which can increase risk for pulmonary embolism. No evidence of active malignancy . COVID-19 is negative Recommendations to continue anticoagulation. Continue IV heparin tPrefer heparinoids currently given submassive PE/ burden of blood clots. Oral Eliquis may eventually be started on discharge but not adequately studied in this population with large clot burden and avoid in acute setting . Follow CBCand for any bleeding complications , need to follow gluteal hematoma for any worsening Follow venous Dopplers BLE Noted patient is on anastrozole per oncology for breast cancer treatment. Patient may need long-term or indefinite anticoagulation in this setting Will discuss with her oncologist Hold off PT OT for today Supportive care Sara Schultz/ [phone] * Ki Nascimento PharmD - 09/27/2020 10:31 AM CDTAssociated Order(s): IP CONSULT TO PHARMACY [facility] Pharmacy Services Admission Medication Review Loc Leon is a 79 year old female I have reviewed patient's home medication list with the family and the electronic medical record. The medication list review was after the physician has seen and acted upon, and is now ready for re-review/order by physician. Medication List Revisions There were no problems noted. Meds confirmed with refill history and patient daughter, Ange Thank you for the opportunity to take part of Loc Leon's care. Ki Nascimento PharmD documented in this encounter ED Notes * James Harrell MD - 09/27/2020 12:27 AM CDT 12:27 AM Notified by Radiology of CT chest results showing saddle emboli. He indicated interventionby IR is not necessary at this time. Pt d/w Dr. Milian who indicated heparin drip should be started. CT ANGIO CHEST PULM EMBOLISM Final Result STUDY: CTA OF THE CHEST FOR PE EVALUATION HISTORY: Shortness of breath. Positive d-dimer. COMPARISON: CT of the chest dated 08/07/2018. TECHNIQUE: CT of the chest was performed from the lung apices to the lung bases, following intravenous administration of 62 mL of Isovue-370 contrast. Images were obtained at inspiration and viewed in axial (including thin sections), sagittal and coronal planes. Contrast injection rate and acquisition timing were optimized for opacification of the pulmonary arteries for evaluation of pulmonary embolism. Dose reduction techniques were utilized. Multiplanar 3D MIP images were created and reviewed. FINDINGS: There is saddle pulmonary embolism which extends to the right upper lobar and segmental arteries as well as the left upper and lower lobar and segmental arteries. There is leftward intraventricular septal bowing which may represent right heart strain. The central airways, lungs, and pleural spaces are clear. The heart is normal in size. There is no pericardial effusion. The aorta and pulmonary artery are normal in caliber. The mediastinal structures are unremarkable. The thyroid is unremarkable. The gallbladder surgically absent. The limited visualized portions of the intra-abdominal contents are unremarkable. There is no masslike lymphadenopathy. The osseous structures and the superficial soft tissues are unremarkable. IMPRESSION: 1. There is saddle pulmonary embolism which extends to the right upper lobar and segmental arteries as well as the left upper and lower lobar and segmental arteries. 2. There is leftward intraventricular septal bowing which may represent right heart strain. Critical values were discussed with and acknowledged by Dr. Harrell on 09/26/2020 at 11:55 PM. *Reading Radiologist: Anup Corbin on 09/26/2020 at 11:57 PM XR CHEST PA AND LATERAL Final Result Chest Two Views History: Shortness of breath [...] Julian Sheth on 09/26/2020 at 4:24 PM * Emily Cedeno MD - 09/26/2020 7:37 PM CDT ED Events Date/Time Event User Comments 09/26/20 2005 First Provider Evaluation DARIEN MENDES [id number] [facility] History Chief Complaint Patient presents with ??? Shortness of Breath c/o sob. sent to ed by to rule out pnuemonia 79 y/o F w T2DM, CATY, asthma, HTN, HLD, prior TIA, anemia, afib (off AC for recent gluteal bleed) p/w SOB yesterday and concern for abnormal pulm exam by home health nurse today. The patient presentswith her daughter who states that the home health nurse believe she heard crackling in the right lung. She was seen by the nurse practitioner at her PCPs office who referred her to the emergency department for a chest x-ray. The patient reports shortness of breath yesterday that has resolved. Endorses some nasal congestion and cough yesterday that was nonproductive and has also resolved. Denies any hemoptysis. The patient reports chronic edema with no acute changes. She is on Lasix and compliant. The patient denies any chest pain. Denies any fevers or chills. The patient reports adequate PO with normal urine output. Denies any urinary symptoms. Reports normal bowel movements. The patient denies asymmetry to her edema, but did recently have a prolonged hospitalization and is minimally mobile at baseline. The patient reports numerous allergies that are listed in the chart. She is a nonsmoker. Denies drug use. Past Medical History: Diagnosis Date ??? Asthma [...] T1cN0(i-)M0, stage IA. ER pos 97% (strong), GA pos 23% (moderate), Her-2 neg (1+ on [...] Not on file Occupational History ??? 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 Smoking status: [...] Gatherings with Friends and Family: ??? Attends Islam Services: ??? Active Member of Clubs or Organizations: ??? Attends Club or Organization Meetings: ??? Marital Status: Intimate Partner Violence: ??? Fear of Current or Ex-Partner: ??? Emotionally Abused: ??? Physically Abused: ??? Sexually Abused: Review of Systems Review of Systems Constitutional: Negative for chills and fever. HENT: Positive for congestion. Negative for sore throat. Eyes: Negative for blurred vision. Respiratory: Positive for cough and shortness of breath. Cardiovascular: Positive for leg swelling. Negative for chest pain. Gastrointestinal: Negative for abdominal pain, diarrhea, nausea and vomiting. Genitourinary: Negative for dysuria. Musculoskeletal: Negative for back pain and neck pain. Skin: Negative for rash. Neurological: Negative for sensory change, weakness and headaches. All other systems reviewed and are negative. Physical Exam BP 104/53 Pulse 88 Temp 97 ??F (36.1 ??C) (Temporal) Resp 18 SpO2 96% Physical Exam Vitals and nursing note reviewed. Constitutional: General: She is not in acute distress. Appearance: Normal appearance. HENT: Head: Normocephalic and atraumatic. Right Ear: External ear normal. Left Ear: External ear normal. Nose: Nose normal. Mouth/Throat: Mouth: Mucous membranes are moist. Pharynx: Oropharynx is clear. Eyes: Extraocular Movements: Extraocular movements intact. Conjunctiva/sclera: Conjunctivae normal. Cardiovascular: Rate and Rhythm: Normal rate and regular rhythm. Pulses: Normal pulses. Heart sounds: Murmur heard. Comments: Patient noted to have systolic murmur that she reports is chronic Pulmonary: Effort: Pulmonary effort is normal. No respiratory distress. Breath sounds: Normal breath sounds. Comments: Patient saturating 93% on room air Abdominal: General: There is no distension. Palpations: Abdomen is soft. Tenderness: There is no abdominal tenderness. Musculoskeletal: Cervical back: Neck supple. Right lower leg: Edema present. Left lower leg: Edema present. Comments: Symmetric edema bilateral lower extremities. No redness, warmth, tenderness Skin: General: Skin is warm and dry. Neurological: General: No focal deficit present. Mental Status: She is alert and oriented to person, place, and time. Cranial Nerves: No cranial nerve deficit. Sensory: No sensory deficit. Motor: No weakness. Psychiatric: Mood and Affect: Mood normal. Behavior: Behavior normal. Medications Current Outpatient Medications Medication Sig [...] 90 tablet 3 ??? BD PEN NEEDLE MADDI U/F 32G [...] Take 1 packet by mouth once daily Procedures Procedures Lab Interpretation Oxygen Saturation Interpretation The oxygen saturation level is: 94%. The patient was on Room Air for the saturation measurement. Oxygen saturation interpretation is Normal. WATER SOFTENER INSTALLER INTERPRETATION Normal Sinus Rhythm with a ventricular rate of 91 beats per minute Interpretation: No evidence of any acute arrhythmia at this time. EKG with normal sinus rhythm. Rate 90 beats per minute. Left axis deviation. T- wave inversion in lead 3. T-wave flattening in V2. No significant ST segment deviation. GA 164 ms. QRS 112 ms. QTc 457 ms. no STEMI. Hospital Encounter on 09/26/20 CBC W AUTO DIFFERENTIAL Result Value Ref Range WBC 15.6 (H) 4.4 - 10.7 x10E9/L WBC Corrected RBC 5.31 (H) 3.80 - 5.20 x10E12/L Hemoglobin 13.5 12.0 - 15.6 gm/dL Hematocrit 42.0 35.9 - 45.5 % MCV 79.1 (L) 80.7 - 98.3 fl MCH 25.4 (L) 26.7 - 34.0 pg MCHC 32.1 30.8 - 35.9 gm/dL Platelet Count 323 153 - 416 x10E9/L RDW-CV 16.4 (H) 12.1 - 14.9 % MPV 10.7 9.4 - 12.9 fl Neutrophils % 67.2 44.0 - 73.0 % Lymphocytes % 13.6 (L) 20.0 - 43.0 % Monocytes % 16.2 (H) 5.0 - 13.0 % Eosinophils % 1.3 0.0 - 6.0 % Basophils % 0.8 0.0 - 2.0 % Immature Granulocytes 0.9 0 - 1 % Neutrophil Absolute 10.47 (H) 2.01 - 7.14 x10E9/L Lymphocytes Absolute 2.12 1.07 - 3.94 x10E9/L Monocytes Absolute 2.53 (H) 0.26 - 1.07 x10E9/L Eosinophils Absolute 0.20 0 - 0.47 x10E9/L Basophils Absolute 0.12 (H) 0 - 0.08 x10E9/L Immature Granulocytes Absolute 0.14 (H) 0.00 - 0.06 x10E9/L nRBC Auto 0 /100 WBC XR CHEST PA AND LATERAL Final Result Chest Two Views History: Shortness of breath [...] Julian Sheth on 09/26/2020 at 4:24 PM Progress Notes ED Course ED Course as of September 26 2333 Tue September 26, 2020 1758 Per lab, no lab specimens were received on this patient. [AK] 1925 Chest x-ray clear. Blood cultures canceled as patient is not tachycardic, hypotensive, and extremely low clinical concern for bacterial infection at this time with plan for likely discharge if workup reassuring. [ML] 2002 D-Dimer(!): 1.32 [ML] 2030 Troponin I(!!): 0.092 [ML] 2030 BNP(!): 205 [ML] 2131 Patient reassessed and informed of workup. She is agreeable with plan for admission. She is aware of plan for CT to rule out PE. [ML] 2219 Patient signed out to Dr. Espana. Plan to admit. Will place cardiology consult. [ML] ED Course User Index [AK] Darien Mendes, BUFFERER-HOME ORGANIZER [ML] Emily Cedeno MD Clinical Impressions as of Sep 26 2332 SOB (shortness of breath) Elevated troponin Acute congestive heart failure, unspecified heart failure type Medical Decision Making 79 y/o F w T2DM, CATY, asthma, HTN, HLD, prior TIA, anemia, afib (off AC for recent gluteal bleed) p/w SOB yesterday and concern for abnormal pulm exam by home health nurse today. Patient off her homeanticoagulation for recent gluteal bleed. She had recent hospitalization. Exam with symmetric edema. Cardiovascular exam with murmur that is chronic for patient. Lungs clear to auscultation bilaterally. Patient saturating 93% on room air. Abdomen soft, nontender. Neuro exam nonfocal. Chest x-ray clear. Ddx: Viral infection, anemia, metabolic abnormality, CHF, asthma exacerbation, less likely PE, ACS,arrhythmia. Plan: Labs, EKG, reassessment. Disposition pending workup. Patient strongly prefers to be discharged home if workup reassuring. Orders Placed This Encounter ??? XR CHEST PA AND LATERAL ??? B-TYPE NATRIURETIC PEPTIDE ??? CBC W AUTO DIFFERENTIAL ??? COMPREHENSIVE METABOLIC PANEL ??? TROPONIN I ??? TROPONIN I ??? URINALYSIS REFLEX TO MICROSCOPIC NO CULTURE ??? EKG 12-LEAD ??? AND Linked Order Group ??? 0.9% NaCl injection 3 mL ??? 0.9% NaCl injection 1-10 mL * Dianna Cerrato RN - 09/26/2020 7:30 PM CDT Pt sent to ED by PCP. Per daughter, INDUSTRIAL TRACTOR DRIVER thought she was SOB while talking and wanted a CXR to check for pneumonia and possible breathing tx. Pt reports feeling SOB yesterday and having dry cough. Denies those sx today. States bilateral leg edema is chronic. VSS. Will continue to monitor. * Darien Mendes, YAEL-HOME ORGANIZER - 09/26/2020 2:38 PM CDT RME Note Chief Complaint: Shortness of Breath (c/o sob. sent to ed by MD to rule out pnuemonia) Provider in Triage HPI: Loc Leon is a 79 year old female who presents with shortness of breath. Patient reports that she began having increased shortness of breath x2 days ago. Patient has home health nurse heard crackles yesterday and felt that the patient possibly had pneumonia. Patient denies any fevers. Patient denies any chest pain. Patient has generalized edema to the lower extremities. Limited Chart History: Past Medical History: Diagnosis [...] T1cN0(i-)M0, stage IA. ER pos 97% (strong), GA pos 23% (moderate), Her-2 neg (1+ on [...] AND LT ARM ??? THYROID NEEDLE BIOPSY Current Facility-Administered Medications Medication Dose Route Frequency Provider Last Rate Last Admin ??? 0.9% NaCl injection 3 mL 3 mL Intracatheter q8h Darien Mendes APRN-CNP And ??? 0.9% NaCl injection 1-10 mL 1-10 mL Intracatheter PRN Darien Mendes APRN-SARA Current Outpatient Medications Medication Sig Dispense Refill [...] 90 tablet 3 ??? BD PEN NEEDLE MADDI U/F 32G [...] Camargo MD (Above may be pending completion) Review of Systems Review of Systems All other systems reviewed and are negative. Primary System Noted in HPI Physical Exam BP 104/53 Pulse 88 Temp 97 ??F (36.1 ??C) (Temporal) Resp 18 SpO2 96% Physical Exam Vitals and nursing note reviewed. Constitutional: Appearance: Normal appearance. She is normal weight. HENT: Head: Normocephalic and atraumatic. Right Ear: External ear normal. Left Ear: External ear normal. Nose: Nose normal. Mouth/Throat: Mouth: Mucous membranes are moist. Pharynx: Oropharynx is clear. Eyes: Extraocular Movements: Extraocular movements intact. Conjunctiva/sclera: Conjunctivae normal. Pupils: Pupils are equal, round, and reactive to light. Cardiovascular: Rate and Rhythm: Normal rate and regular rhythm. Pulses: Normal pulses. Heart sounds: Normal heart sounds. Pulmonary: Effort: Pulmonary effort is normal. Breath sounds: Normal breath sounds. Abdominal: General: Bowel sounds are normal. Palpations: Abdomen is soft. Musculoskeletal: General: Normal range of motion. Cervical back: Normal range of motion and neck supple. Right lower leg: Edema present. Left lower leg: Edema present. Skin: General: Skin is warm and dry. Capillary Refill: Capillary refill takes less than 2 seconds. Neurological: General: No focal deficit present. Mental Status: She is alert and oriented to person, place, and time. Mental status is at baseline. Psychiatric: Mood and Affect: Mood normal. Behavior: Behavior normal. Thought Content: Thought content normal. Judgment: Judgment normal. Diagnostic Studies/Procedures LABORATORY STUDIES: Labs Reviewed CULTURE BLOOD CULTURE BLOOD B-TYPE NATRIURETIC PEPTIDE CBC W AUTO DIFFERENTIAL COMPREHENSIVE METABOLIC PANEL URINALYSIS REFLEX TO MICROSCOPIC NO CULTURE TROPONIN I TROPONIN I TROPONIN I IMAGING STUDIES: CT LUMBAR SPINE NON CONTRAST Result Date: [...] No pneumothorax or pleural effusion. *Reading Radiologist: Sahkira García on 09/15/2020 at 9:04 AM MRI [...] structures within normal limits. Mildfree pelvic fluid. Schmitt catheter decompresses the bladder. [...] 09/14/2020 EXAM: XR PELVIS W LEFT HIP 2VW*[id number] INDICATION: Pain in left hip, pelvic pain COMPARISON: none available FINDINGS: There is joint space narrowing at bilateral hips with no fracture, dislocation or osseous destruction. *Reading Radiologist: Adan Norton on 09/14/2020 at 5:11 PM PROCEDURES: Procedures Clinical Impressions as of Sep 27 1451 SOB (shortness of breath) MDM: I have reviewed all lab and imaging resulted ordered during this visit and available at the time ofthis note. Triage notes and available nursing notes reviewed. Previous medical record reviewed whenavailable. Management options include but not limited to: physical exam, laboratory testing, discussion with other providers. Plan: Orders Placed This Encounter ??? CULTURE BLOOD ??? XR CHEST PA AND LATERAL ??? B-TYPE NATRIURETIC PEPTIDE ??? CBC W AUTO DIFFERENTIAL ??? COMPREHENSIVE METABOLIC PANEL ??? URINALYSIS REFLEX TO MICROSCOPIC NO CULTURE ??? TROPONIN I ??? TROPONIN I ??? EKG 12-LEAD ??? AND Linked Order Group ??? 0.9% NaCl injection 3 mL ??? 0.9% NaCl injection 1-10 mL documented in this encounter Miscellaneous Notes * Coding Query - Heri Kaba MD - 10/04/2020 3:59 PM CDT DOCUMENTATION CLARIFICATION REQUEST TO: Heri Rider FROM: Bre Tabares, Personal Injury Specialist Discharge summary notes UTI. Please choose from the following options to clarify if UTI was due to chronic indwelling schmitt catheter? UTI is due chronic indwelling schmitt catheter ??? UTI is not due to chronic indwelling schmitt catheter ??? Other, please specify ??? Unable to determine The medical record reflects the following risk factors, clinical findings and treatment: Risk Factors: Progress notes document diagnosis of UTI. 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 Clinical Findings: 09/27/20 labs WBC 17.2 Urine culture 09/27/20 +ecoli, enterococcus faecalis Treatment includin/12 patient started on Rocephin Amoxicillin for UTI with Enteorcoccus ad E.Coli for 5 days per discharge summary. PHYSICIAN CLARIFICATION OF PATIENT DIAGNOSIS/PROCEDURE (Select edit then F2 to Respond) UTI in patient with chronic indwelling urinary catheter Please provide your clinical opinion in the progress notes & carry it through into your discharge summary. Please include clinical findings supporting your diagnosis. This documentation is maintained as a permanent part of the medical record documented in this encounter Plan of Treatment Scheduled Orders Name Type Priority Associated Diagnoses Order Schedule EKG 12-LEAD ECG Routine SOB (shortness of breath) ONCE for 1 Occurrences starting 09/26/2020 until 09/26/2020 INITIATE RT BRONCHODILATOR PROTOCOL Respiratory Care Routine ONCE for 1 Occurrences starting 09/27/2020 until 09/27/2020 documented as of this encounter Goals Goal Patient Goal Type Associated Problems Recent Progress Patient-Stated? 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 8:09 AM PROJECT INTERN) No Alisa Jaramillo HEMOGLOBIN A1C < 7.0 Result Component 5.4( 12:00 AM CDT) No Alisa Jaramillo documented as of this encounter Procedures Procedure Name Priority Date/Time Associated Diagnosis Comments CARDIAC RHYTHM STRIP ORDER 10/05/2020 11:57 PM CDT GLUCOSE - POINT OF CARE Routine 10/04/2020 8:30 AM CDT PTT AM Draw 10/04/2020 4:17 AM CDT CBC W AUTO DIFFERENTIAL AM Draw 10/04/2020 4:17 AM CDT COMPREHENSIVE METABOLIC PANEL AM Draw 10/04/2020 4:17 AM CDT MAGNESIUM BLOOD Routine 10/04/2020 4:17 AM CDT GLUCOSE - POINT OF CARE Routine 10/03/2020 10:08 PM CDT GLUCOSE - POINT OF CARE Routine 10/03/2020 4:42 PM CDT GLUCOSE - POINT OF CARE Routine 10/03/2020 11:57 AM CDT NM MYOCARD PERF REST STRESS STAT 10/03/2020 10:43 AM CDT Suspected COVID-19 virus infection STRESS TEST LEXISCAN (NUCLEAR) Routine 10/03/2020 9:24 AM CDT Suspected COVID-19 virus infection GLUCOSE - POINT OF CARE Routine 10/03/2020 7:37 AM CDT PTT AM Draw 10/03/2020 4:02 AM CDT DIFFERENTIAL MANUAL Routine 10/03/2020 4 :02 AM CDT CBC W AUTO DIFFERENTIAL AM Draw 10/03/2020 4:02 AM CDT COMPREHENSIVE METABOLIC PANEL AM Draw 10/03/2020 4:02 AM CDT MAGNESIUM BLOOD Routine 10/03/2020 4:02 AM CDT XR ABDOMEN KUB Routine 10/02/2020 11:20 PM CDT Pulmonary embolism, other, unspecified chronicity, unspecified whether acute cor pulmonale present (HCC) Suspected COVID-19 virus infection Acute right-sided congestive heart failure (HCC) GLUCOSE - POINT OF CARE Routine 10/02/2020 8:50 PM CDT GLUCOSE - POINT OF CARE Routine 10/02/2020 6:03 PM CDT GLUCOSE - POINT OF CARE Routine 10/02/2020 12:13 PM CDT GLUCOSE - POINT OF CARE Routine 10/02/2020 8:43 AM CDT PTT AM Draw 10/02/2020 5:07 AM CDT DIFFERENTIAL MANUAL Routine 10/02/2020 5 :07 AM CDT CBC W AUTO DIFFERENTIAL AM Draw 10/02/2020 5:07 AM CDT COMPREHENSIVE METABOLIC PANEL AM Draw 10/02/2020 5:07 AM CDT MAGNESIUM BLOOD Routine 10/02/2020 5:07 AM CDT GLUCOSE - POINT OF CARE Routine 10/01/2020 8:16 PM CDT GLUCOSE - POINT OF CARE Routine 10/01/2020 5:23 PM CDT GLUCOSE - POINT OF CARE Routine 10/01/2020 12:37 PM CDT GLUCOSE - POINT OF CARE Routine 10/01/2020 11:[address] ANGIO CHEST PULM EMBOLISM STAT 10/01/2020 10:16 AM CDT Suspected COVID-19 virus infection GLUCOSE - POINT OF CARE Routine 10/01/2020 8:30 AM CDT PTT AM Draw 10/01/2020 4:49 AM CDT CBC W AUTO DIFFERENTIAL AM Draw 10/01/2020 4:49 AM CDT COMPREHENSIVE METABOLIC PANEL AM Draw 10/01/2020 4:49 AM CDT PHOSPHORUS BLOOD Routine 10/01/2020 4:49 AM CDT MAGNESIUM BLOOD Routine 10/01/2020 4:49 AM CDT GLUCOSE - POINT OF CARE Routine 09/30/2020 10:00 PM CDT EKG 12-LEAD Routine 09/30/2020 5:10 PM CDT Suspected COVID-19 virus infection TROPONIN I Routine 09/30/2020 4:48 PM CDT GLUCOSE - POINT OF CARE Routine 09/30/2020 3:46 PM CDT GLUCOSE - POINT OF CARE Routine 09/30/2020 11:27 AM CDT ECHOCARDIOGRAM 2D WITH DOPPLER Routine 09/30/2020 10:15 AM CDT Acute right-sided congestive heart failure (HCC) GLUCOSE - POINT OF CARE Routine 09/30/2020 7:33 AM CDT PTT Timed 09/30/2020 5:47 AM CDT CBC W AUTO DIFFERENTIAL AM Draw 09/30/2020 5:47 AM CDT COMPREHENSIVE METABOLIC PANEL AM Draw 09/30/2020 5:47 AM CDT PHOSPHORUS BLOOD Routine 09/30/2020 5:47 AM CDT MAGNESIUM BLOOD Routine 09/30/2020 5:47 AM CDT GLUCOSE - POINT OF CARE Routine 09/29/2020 9:22 PM CDT GLUCOSE - POINT OF CARE Routine 09/29/2020 4:20 PM CDT XR CHEST 1VW PORTABLE STAT 09/29/2020 4:01 PM CDT SOB (shortness of breath) Pulmonary embolism, other, unspecified chronicity, unspecified whether acute cor pulmonale present (HCC) GLUCOSE - POINT OF CARE Routine 09/29/2020 12:50 PM CDT GLUCOSE - POINT OF CARE Routine 09/29/2020 8:04 AM CDT PTT AM Draw 09/29/2020 4:51 AM CDT CBC W AUTO DIFFERENTIAL AM Draw 09/29/2020 4:51 AM CDT COMPREHENSIVE METABOLIC PANEL AM Draw 09/29/2020 4:51 AM CDT PHOSPHORUS BLOOD Routine 09/29/2020 4:51 AM CDT MAGNESIUM BLOOD Routine 09/29/2020 4:51 AM CDT GLUCOSE - POINT OF CARE Routine 09/28/2020 9:43 PM CDT GLUCOSE - POINT OF CARE Routine 09/28/2020 4:04 PM CDT VAS BILATERAL VENOUS DUPLEX LE Routine 09/28/2020 2:04 PM CDT Acute congestive heart failure, unspecified heart failure type (HCC) Pulmonary embolism, other, unspecified chronicity, unspecified whether acute cor pulmonale present (HCC) Suspected COVID-19 virus infection PTH INTACT Routine 09/28/2020 1:04 PM CDT PTH RELATED PEPTIDE Routine 09/28/2020 1:04 PM CDT VITAMIN D 1,25 DIHYDROXY Routine 09/28/2020 1:04 PM CDT VITAMIN D 25-HYDROXY Routine 09/28/2020 1:04 PM CDT IRON + TRANSFERRIN PANEL Routine 09/28/2020 1:04 PM CDT FERRITIN Routine 09/28/2020 1:04 PM CDT GLUCOSE - POINT OF CARE Routine 09/28/2020 12:31 PM CDT IR TRANSLUM THROMBECTOMY ARTERIAL Routine 09/28/2020 10:48 AM CDT Pulmonary embolism, other, unspecified chronicity, unspecified whether acute cor pulmonale present (HCC) HEMOGLOBIN STAT 09/28/2020 10:24 AM CDT Pulmonary embolism, other, unspecified chronicity, unspecified whether acute cor pulmonale present (HCC) PT PTT PANEL Timed 09/28/2020 1:55 AM CDT Pulmonary embolism, other, unspecified chronicity, unspecified whether acute cor pulmonale present (HCC) CBC W AUTO DIFFERENTIAL Routine 09/28/2020 1:55 AM CDT Pulmonary embolism, other, unspecified chronicity, unspecified whether acute cor pulmonale present (HCC) LACTIC ACID BLOOD Routine 09/28/2020 1:5 5 AM CDT Suspected COVID-19 virus infection GLUCOSE - POINT OF CARE Routine 09/27/2020 9:40 PM CDT PTT STAT 09/27/2020 7:58 PM CDT SOB (shortness of breath) Elevated troponin GLUCOSE - POINT OF CARE Routine 09/27/2020 3:26 PM CDT PTT STAT 09/27/2020 1:17 PM CDT SOB (shortness of breath) Elevated troponin GLUCOSE - POINT OF CARE Routine 09/27/2020 11:32 AM CDT URINALYSIS REFLEX TO MICROSCOPIC NO CULTURE STAT 09/27/2020 8:31 AM CDT URINE MICROSCOPIC ONLY STAT 8:31 AM CDT CULTURE URINE Routine 09/27/2020 8:31 AM CDT Elevated troponin Acute congestive heart failure, unspecified heart failure type (HCC) Pulmonary embolism, other, unspecified chronicity, unspecified whether acute cor pulmonale present (HCC) Suspected COVID-19 virus infection PTT Timed 09/27/2020 7:33 AM CDT SOB (shortness of breath) Pulmonary embolism, other, unspecified chronicity, unspecified whether acute cor pulmonale present (HCC) GLUCOSE - POINT OF CARE Routine 09/27/2020 6:48 AM CDT PROCALCITONIN LEVEL Routine 09/27/2020 4 :55 AM CDT Suspected COVID-19 virus infection TROPONIN I Routine 09/27/2020 4:55 AM CDT Elevated troponin C-REACTIVE PROTEIN Routine 09/27/2020 4: 55 AM CDT Suspected COVID-19 virus infection FERRITIN Routine 09/27/2020 4:55 AM CDT Suspected COVID-19 virus infection ECHOCARDIOGRAM 2D WITH DOPPLER Routine 09/27/2020 4:30 AM CDT Acute congestive heart failure, unspecified heart failure type (HCC) PT PTT PANEL STAT 09/27/2020 1:15 AM CDT Pulmonary embolism, other, unspecified chronicity, unspecified whether acute cor pulmonale present (HCC) CBC W AUTO DIFFERENTIAL STAT 09/27/2020 1:15 AM CDT Pulmonary embolism, other, unspecified chronicity, unspecified whether acute cor pulmonale present (HCC) CT ANGIO CHEST PULM EMBOLISM STAT 09/26/2020 11:14 PM CDT SOB (shortness of breath) SARS-COV-2 (COVID-19) IN HOUSE STAT 09/26/2020 10:57 PM CDT TROPONIN I Timed 09/26/2020 10:57 PM CDT LDH BLOOD Routine 09/26/2020 10:57 PM CDT Suspected COVID-19 virus infection TROPONIN I STAT 09/26/2020 7:27 PM CDT D-DIMER Add on 09/26/2020 7:27 PM CDT CBC W AUTO DIFFERENTIAL STAT 09/26/2020 7:27 PM CDT B-TYPE NATRIURETIC PEPTIDE STAT 09/26/2020 7:27 PM CDT COMPREHENSIVE METABOLIC PANEL STAT 09/26/2020 7:27 PM CDT XR CHEST 2VW STAT 09/26/2020 4:21 PM CDT SOB (shortness of breath) EKG 12-LEAD STAT 09/26/2020 2:20 PM CDT SOB (shortness of breath) documented in this encounter Results * CARDIAC RHYTHM STRIP ORDER (10/05/2020 11:57 PM CDT) Narrative 10/05/2020 11:57 PM CDT Ordered by an unspecified provider. Scanned Document CARDIAC SERVICES ORD ERABLES * (ABNORMAL) GLUCOSE - POINT OF CARE (10/04/2020 8:30 AM CDT) Pathologist [facility] Glucose WB/POC 152(H) 70 - 106 mg/dL 10/04/2020 8:37 AM CDT [facility] Specimen Type Arterial/C apillary 10/04/2020 8:37 AM CDT [facility] Blood BLOOD SPECIMEN / Unknown 10/04/2020 8:30 AM CDT 10/04/2020 8:37 AM CDT Heri Kaba MD LAB - POINT OF CARE ORDERABLES Performing Organization Address [facility] de Phone Number [facility] [id number] [place] [phone] * PTT (10/04/2020 4:17 AM CDT) [facility] PTT 30.9 23.0 - 38.4 sec 10/04/2020 4:51 AM CDT [facility] Blood BLOOD SPECIMEN / Unknown Venipuncture / Unknown 10/04/2020 4:17 AM CDT 10/04/2020 4:34 AM CDT Narrative [facility] - 10/04/2020 4:51 AM CDT Heparin Therapeutic Range for PTT: ??71.0 - 109.0 seconds. Melodie Maya MD LAB - COAGULATION OR DERABLES Performing Organization Address [facility] de Phone Number [facility] [id number] [place] [phone] * (ABNORMAL) CBC W AUTO DIFFERENTIAL (10/04/2020 4:17 AM CDT) Pathologist [facility] WBC 11.1(H) 4.4 - 10.7 x10E9/L 10/04/2020 4:42 AM CDT [facility] WBC Corrected 10/04/2020 4:42 AM CDT [facility] RBC 4.20 3.80 - 5.20 x10E12/L 10/04/2020 4:42 AM CDT [facility] Hemoglobin 10.7(L) 12.0 - 15.6 gm/dL 10/04/2020 4:42 AM CDT [facility] Hematocrit 35.7(L) 35.9 - 45.5 % 10/04/2020 4:42 AM CDT [facility] MCV 85.0 80.7 - 98.3 fl 10/04/2020 4:42 AM CDT [facility] MCH 25.5(L) 26.7 - 34.0 pg 10/04/2020 4:42 AM CDT [facility] MCHC 30.0(L) 30.8 - 35.9 gm/dL 10/04/2020 4:42 AM CDT [facility] Platelet Count 261 153 - 416 x10E9/L 10/04/2020 4:42 AM CDT [facility] RDW-CV 19.5(H) 12.1 - 14.9 % 10/04/2020 4:42 AM CDT [facility] MPV 10.5 9.4 - 12.9 fl 10/04/2020 4:42 AM CDT [facility] Neutrophils % 65.9 44.0 - 73.0 % 10/04/2020 4:42 AM CDT [facility] Lymphocytes % 11.7(L) 20.0 - 43.0 % 10/04/2020 4:42 AM CDT [facility] Monocytes % 16.9(H) 5.0 - 13.0 % 10/04/2020 4:42 AM CDT [facility] Eosinophils % 2.2 0.0 - 6.0 % 10/04/2020 4:42 AM CDT [facility] Basophils % 0.7 0.0 - 2.0 % 10/04/2020 4:42 AM CDT [facility] Immature Granulocytes 2.6(H) 0 - 1 % 10/04/2020 4:42 AM CDT [facility] Neutrophil Absolute 7.33(H) 2.01 - 7.14 x10E9/L 10/04/2020 4:42 AM CDT [facility] Lymphocytes Absolute 1.30 1.07 - 3.94 x10E9/L 10/04/2020 4:42 AM CDT [facility] Monocytes Absolute 1.88(H) 0.26 - 1.07 x10E9/L 10/04/2020 4:42 AM CDT [facility] Eosinophils Absolute 0.24 0 - 0.47 x10E9/L 10/04/2020 4:42 AM CDT [facility] Basophils Absolute 0.08 0 - 0.08 x10E9/L 10/04/2020 4:42 AM CDT [facility] Immature Granulocytes Absolute 0.29(H) 0.00 - 0.06 x10E9/L 10/04/2020 4:42 AM CDT [facility] nRBC Auto 1 /100 WBC 10/04/2020 4:42 AM CDT [facility] Blood BLOOD SPECIMEN / Unknown Venipuncture / Unknown 10/04/2020 4:17 AM CDT 10/04/2020 4:34 AM CDT Ryan He MD LAB - AVINASH TOLOGY ORDERABLES Performing Organization Address City/[facility]/ZIP Co de Phone Number [facility] [id number] [place] [address] * MAGNESIUM BLOOD (10/04/2020 4:17 AM CDT) [facility] Magnesium 2.3 1.6 - 2.6 mg/dL 10/04/2020 5:33 AM CDT [facility] Blood BLOOD SPECIMEN / Unknown Venipuncture / Unknown 10/04/2020 4:17 AM CDT 10/04/2020 4:34 AM CDT Ryan He MD LAB - CHEM ISTRY ORDERABLES Performing Organization Address City/[facility]/ZIP Co de Phone Number [facility] [id number] [place] [address] * (ABNORMAL) COMPREHENSIVE METABOLIC PANEL (10/04/2020 4:17 AM CDT) [facility] Glucose 153(H) 70 - 105 mg/dL 10/04/2020 5:33 AM CDT [facility] Sodium 136 136 - 145 mmol/L 10/04/2020 5:33 AM CDT [facility] Potassium 4.7 3.5 - 5.1 mmol/L 10/04/2020 5:33 AM CDT [facility] Chloride 107 98 - 107 mmol/L 10/04/2020 5:33 AM CDT [facility] CO2 21(L) 23 - 31 mmol/L 10/04/2020 5:33 AM CDT [facility] Calcium 9.8 8.4 - 10.4 mg/dL 10/04/2020 5:33 AM CDT [facility] Anion Gap 8 8 - 18 mmol/L 10/04/2020 5:33 AM CDT [facility] BUN 13 9.8 - 20.1 mg/dL 10/04/2020 5:33 AM CDT [facility] Creatinine 0.91 0.57 - 1.11 mg/dL 10/04/2020 5:33 AM CDT [facility] Alkaline Phosphatase 97 40 - 150 U/L 10/04/2020 5:33 AM CDT [facility] ALT 20 0 - 61 U/L 10/04/2020 5:33 AM CDT [facility] AST 15 5 - 34 U/L 10/04/2020 5:33 AM CDT [facility] Protein Total 5.7(L) 6.4 - 8.3 gm/dL 10/04/2020 5:33 AM CDT [facility] Albumin 3.2 3.2 - 4.6 gm/dL 10/04/2020 5:33 AM CDT [facility] Bilirubin Total 0.3 0.2 - 1.2 mg/dL 10/04/2020 5:33 AM CDT [facility] eGFR by MDRD 59 mL/min/1.7 3m2 10/04/2020 5:33 AM CDT [facility] eGFR by MDRD >60 mL/min/1.7 3m2 10/04/2020 5:33 AM CDT [facility] Blood BLOOD SPECIMEN / Unknown Venipuncture / Unknown 10/04/2020 4:17 AM CDT 10/04/2020 4:34 AM CDT Ryan He MD LAB - CHEM ISTRY ORDERABLES Performing Organization Address [facility] Co de Phone Number [facility] [phone] [place] [address] [phone] * (ABNORMAL) GLUCOSE - POINT OF CARE (10/03/2020 10:08 PM CDT) Glucose WB/POC 261(H) 70 - 106 mg/dL 10/04/2020 5:52 AM CDT [facility] Specimen Type Arterial/C apillary 10/04/2020 5:52 AM CDT [facility] Blood BLOOD SPECIMEN / Unknown 10/03/2020 10:08 PM CDT 10/04/2020 5:51 AM CDT Heri Kaba MD LAB - POINT OF CARE ORDERABLES Performing Organization Address [facility] de Phone Number [facility] [address] [place] [phone] * (ABNORMAL) GLUCOSE - POINT OF CARE (10/03/2020 4:42 PM CDT) Glucose WB/POC 175(H) 70 - 106 mg/dL 10/03/2020 6:31 PM CDT [facility] Specimen Type Venous 10/03/2020 6:31 PM CDT [facility] Blood BLOOD SPECIMEN / Unknown 10/03/2020 4:42 PM CDT 10/03/2020 6:31 PM CDT Heri Kaba MD LAB - POINT OF CARE ORDERABLES Performing Organization Address [facility] Co de Phone Number [facility] [address] [place] [address] [phone] * (ABNORMAL) GLUCOSE - POINT OF CARE (10/03/2020 11:57 AM CDT) Glucose WB/POC 179(H) 70 - 106 mg/dL 10/03/2020 12:00 PM CDT [facility] Specimen Type Venous 10/03/2020 12:00 PM CDT [facility] Blood BLOOD SPECIMEN / Unknown 10/03/2020 11:57 AM CDT 10/03/2020 12:00 PM CDT Heri Kaba MD LAB - POINT OF CARE ORDERABLES [facility] [address] [place] [address] * NM MYOCARD PERFUSION SPECT STRESS AND [...] Referred By: ? Confirmed By:WILLIE VILLA MD [facility] 10/03/2020 9:24 AM CDT 10/13/2020 1:19 PM CDT Ryan He MD CARDIAC SE RVICES ORDERABLES [facility] * (ABNORMAL) GLUCOSE - POINT OF CARE (10/03/2020 7:37 AM CDT) Glucose WB/POC 135(H) 70 - 106 mg/dL 10/03/2020 9:48 AM CDT [facility] Specimen Type Venous 10/03/2020 9:48 AM CDT [facility] Blood BLOOD SPECIMEN / Unknown 10/03/2020 7:37 AM CDT 10/03/2020 9:48 AM CDT Ryan He MD LAB - POIN T OF CARE ORDERABLES [facility] [address] [place] [address] * (ABNORMAL) DIFFERENTIAL MANUAL (10/03/2020 4:02 AM CDT) WBC Auto 11.5 x10E9/L 10/03/2020 7:07 AM CDT [facility] WBC Corrected 10/03/2020 7:07 AM CDT [facility] nRBC 1 /100 WBC 10/03/2020 7:07 AM CDT [facility] Neutrophil % Manual 81(H) 44 - 73 % 10/03/2020 7:07 AM CDT [facility] Lymphocytes % Manual 9(L) 20 - 43 % 10/03/2020 7:07 AM CDT [facility] Monocytes % Manual 8 5 - 13 % 2020 7:07 AM CDT [facility] Eosinophils % Manual 1 0 - 6 % 10/03/2020 7:07 AM CDT [facility] Neutrophils Absolute Manual 9.32(H) 2.01 - 7.14 x10E9/L 10/03/2020 7:07 AM CDT [facility] Lymphocytes Absolute Manual 1.04(L) 1.07 - 3.94 x10E9/L 10/03/2020 7:07 AM CDT [facility] Monocytes Absolute Manual 0.92 0.26 - 1.07 x10E9/L 10/03/2020 7:07 AM CDT [facility] Eosinophils Absolute Manual 0.12 0.00 - 0.47 x10E9/L 10/03/2020 7:07 AM CDT [facility] Metamyelocytes Absolute Manual 0.12(H) <=0.00 x10E9/L 10/03/2020 7:07 AM CDT [facility] Trinity Manual 1(H) <=0 % 10/03/2020 7:07 AM CDT [facility] Cells Counted 100 # cells 10/03/2020 7:07 AM CDT [facility] RBC Morphology Normal 10/03/2020 7:07 AM CDT [facility] WBC Morph Normal 10/03/2020 7:07 AM CDT [facility] Platelet Estimation Normal 10/03/2020 7:07 AM CDT [facility] Blood BLOOD SPECIMEN / Unknown Venipuncture / Unknown 10/03/2020 4:02 AM CDT 10/03/2020 4:39 AM CDT Ryan He MD LAB - AVINASH TOLOGY ORDERABLES Performing Organization Address [facility] Co de Phone Number [facility] [address] [place], [place] [phone] * PTT (10/03/2020 4:02 AM CDT) PTT 33.1 23.0 - 38.4 sec 10/03/2020 4:57 AM CDT [facility] Blood BLOOD SPECIMEN / Unknown Venipuncture / Unknown 10/03/2020 4:02 AM CDT 10/03/2020 4:39 AM CDT Narrative [facility] - 10/03/2020 4:57 AM CDT Heparin Therapeutic Range for PTT: ??71.0 - 109.0 seconds. Melodie Maya MD LAB - COAGULATION OR DERABLES Performing Organization Address [facility] de Phone Number [facility] [phone] [place] [phone] * (ABNORMAL) CBC W AUTO DIFFERENTIAL (10/03/2020 4:02 AM CDT) WBC 11.5(H) 4.4 - 10.7 x10E9/L 10/03/2020 4:48 AM CDT [facility] WBC Corrected 10/03/2020 4:48 AM CDT [facility] RBC 4.16 3.80 - 5.20 x10E12/L 10/03/2020 4:48 AM CDT [facility] Hemoglobin 10.4(L) 12.0 - 15.6 gm/dL 10/03/2020 4:48 AM CDT [facility] Hematocrit 34.3(L) 35.9 - 45.5 % 10/03/2020 4:48 AM CDT [facility] MCV 82.5 80.7 - 98.3 fl 10/03/2020 4:48 AM CDT [facility] MCH 25.0(L) 26.7 - 34.0 pg 10/03/2020 4:48 AM CDT [facility] MCHC 30.3(L) 30.8 - 35.9 gm/dL 10/03/2020 4:48 AM CDT [facility] Platelet Count 255 153 - 416 x10E9/L 10/03/2020 4:48 AM CDT [facility] RDW-CV 18.5(H) 12.1 - 14.9 % 10/03/2020 4:48 AM CDT [facility] MPV 10.4 9.4 - 12.9 fl 10/03/2020 4:48 AM CDT [facility] nRBC Auto 1 /100 WBC 10/03/2020 4:48 AM CDT [facility] Blood BLOOD SPECIMEN / Unknown Venipuncture / Unknown 10/03/2020 4:02 AM CDT 10/03/2020 4:39 AM CDT Ryan He MD LAB - AVINASH TOLOGY ORDERABLES Performing Organization Address City/[facility] de Phone Number [facility] [address] [place] [address] * MAGNESIUM BLOOD (10/03/2020 4:02 AM CDT) Magnesium 2.2 1.6 - 2.6 mg/dL 10/03/2020 5:12 AM CDT [facility] Blood BLOOD SPECIMEN / Unknown Venipuncture / Unknown 10/03/2020 4:02 AM CDT 10/03/2020 4:39 AM CDT Ryan He MD LAB - CHEM ISTRY ORDERABLES Performing Organization Address [facility] Co de Phone Number [facility] [phone] [place] [phone] * (ABNORMAL) COMPREHENSIVE METABOLIC PANEL (10/03/2020 4:02 AM CDT) Glucose 142(H) 70 - 105 mg/dL 10/03/2020 5:12 AM CDT [facility] Sodium 134(L) 136 - 145 mmol/L 10/03/2020 5:12 AM CDT [facility] Potassium 4.5 3.5 - 5.1 mmol/L 10/03/2020 5:12 AM CDT [facility] Chloride 106 98 - 107 mmol/L 10/03/2020 5:12 AM CDT [facility] CO2 22(L) 23 - 31 mmol/L 10/03/2020 5:12 AM CDT [facility] Calcium 9.8 8.4 - 10.4 mg/dL 10/03/2020 5:12 AM CDT [facility] Anion Gap 6(L) 8 - 18 mmol/L 10/03/2020 5:12 AM CDT [facility] BUN 12 9.8 - 20.1 mg/dL 10/03/2020 5:12 AM CDT [facility] Creatinine 0.74 0.57 - 1.11 mg/dL 10/03/2020 5:12 AM CDT [facility] Alkaline Phosphatase 99 40 - 150 U/L 10/03/2020 5:12 AM CDT [facility] ALT 18 0 - 61 U/L 10/03/2020 5:12 AM CDT [facility] AST 16 5 - 34 U/L 10/03/2020 5:12 AM CDT [facility] Protein Total 5.7(L) 6.4 - 8.3 gm/dL 10/03/2020 5:12 AM CDT [facility] Albumin 3.2 3.2 - 4.6 gm/dL 10/03/2020 5:12 AM CDT [facility] Bilirubin Total 0.3 0.2 - 1.2 mg/dL 10/03/2020 5:12 AM CDT [facility] eGFR by MDRD >60 mL/min/1.7 3m2 10/03/2020 5:12 AM CDT [facility] eGFR by MDRD >60 mL/min/1.7 3m2 10/03/2020 5:12 AM CDT [facility] Blood BLOOD SPECIMEN / Unknown Venipuncture / Unknown 10/03/2020 4:02 AM CDT 10/03/2020 4:39 AM CDT Ryan He MD LAB - CHEM ISTRY ORDERABLES [facility] [address] [place] [address] * XR ABDOMEN KUB (10/02/2020 11:20 PM CDT) Anatomical Region Laterality Modality Abdomen Radiographic Mireya ging 10/03/2020 8:28 AM CDT Narrative 10/03/2020 8:28 AM CDT Abdomen AP Indication: Abdominal Pain Findings: ??No dilated loops of bowel are seen to suggest obstruction. There is a large volume of stool throughout the colon. No free air is seen on this supine film. Vascular calcifications are present. *Reading Radiologist: Brooke Reynoso on 10/03/2020 at 8:28 AM Procedure Note Brooke Reynoso MD - 10/03/2020 Abdomen AP Indication: Abdominal Pain Findings: No dilated loops of bowel are seen to suggest obstruction. There is a large volume of stool throughout the colon. No free air is seen on this supine film. Vascular calcifications are present. *Reading Radiologist: Brooke Reynoso on 10/03/2020 at 8:28 AM Ryan He MD DIAGNOSTIC IMAGING ORDERABLES * (ABNORMAL) GLUCOSE - POINT OF CARE (10/02/2020 8:50 PM CDT) Glucose WB/POC 205(H) 70 - 106 mg/dL 10/02/2020 8:53 PM CDT [facility] Specimen Type Arterial/C apillary 10/02/2020 8:53 PM CDT [facility] Blood BLOOD SPECIMEN / Unknown 10/02/2020 8:50 PM CDT 10/02/2020 8:53 PM CDT Ryan He MD LAB - POIN T OF CARE ORDERABLES [facility] [address] [place] [address] * (ABNORMAL) GLUCOSE - POINT OF CARE (10/02/2020 6:03 PM CDT) Glucose WB/POC 207(H) 70 - 106 mg/dL 10/02/2020 6:15 PM CDT [facility] Specimen Type Arterial/C apillary 10/02/2020 6:15 PM CDT [facility] Blood BLOOD SPECIMEN / Unknown 10/02/2020 6:03 PM CDT 10/02/2020 6:14 PM CDT Ryan He MD LAB - POIN T OF CARE ORDERABLES Performing Organization Address City/[facility] Co de Phone Number [facility] [phone] [place] [address] [phone] * (ABNORMAL) GLUCOSE - POINT OF CARE (10/02/2020 12:13 PM CDT) Glucose WB/POC 164(H) 70 - 106 mg/dL 10/02/2020 12:24 PM CDT [facility] Specimen Type Arterial/C apillary 10/02/2020 12:24 PM CDT [facility] Blood BLOOD SPECIMEN / Unknown 10/02/2020 12:13 PM CDT 10/02/2020 12:24 PM CDT Ryan He MD LAB - POIN T OF CARE ORDERABLES Performing Organization Address City/[facility] Co de Phone Number [facility] [phone] [place] [phone] * (ABNORMAL) GLUCOSE - POINT OF CARE (10/02/2020 8:43 AM CDT) Glucose WB/POC 168(H) 70 - 106 mg/dL 10/02/2020 8:59 AM CDT [facility] Specimen Type Arterial/C apillary 10/02/2020 8:59 AM CDT [facility] Blood BLOOD SPECIMEN / Unknown 10/02/2020 8:43 AM CDT 10/02/2020 8:59 AM CDT Ryan He MD LAB - POIN T OF CARE ORDERABLES [facility] [address] [place] [address] * (ABNORMAL) DIFFERENTIAL MANUAL (10/02/2020 5:07 AM CDT) WBC Auto 12.3 x10E9/L 10/02/2020 8:11 AM CDT [facility] WBC Corrected 10/02/2020 8:11 AM CDT [facility] nRBC 3 /100 WBC 10/02/2020 8:11 AM CDT [facility] Neutrophil % Manual 78(H) 44 - 73 % 10/02/2020 8:11 AM CDT [facility] Lymphocytes % Manual 10(L) 20 - 43 % 10/02/2020 8:11 AM CDT [facility] Monocytes % Manual 7 5 - 13 % 2020 8:11 AM CDT [facility] Eosinophils % Manual 3 0 - 6 % 10/02/2020 8:11 AM CDT [facility] Neutrophils Absolute Manual 9.84(H) 2.01 - 7.14 x10E9/L 10/02/2020 8:11 AM CDT [facility] Lymphocytes Absolute Manual 1.23 1.07 - 3.94 x10E9/L 10/02/2020 8:11 AM CDT [facility] Monocytes Absolute Manual 0.86 0.26 - 1.07 x10E9/L 10/02/2020 8:11 AM CDT [facility] Eosinophils Absolute Manual 0.37 0.00 - 0.47 x10E9/L 10/02/2020 8:11 AM CDT [facility] Band % Manual 2 0 - 11 % 10/02/2020 8:11 AM CDT [facility] Cells Counted 100 # cells 10/02/2020 8:11 AM CDT [facility] WBC Morph Normal 10/02/2020 8:11 AM CDT [facility] Anisocytosis Occasional (A) None 10/02/2020 8:11 AM CDT [facility] Poikilocytosis Occasional (A) None 10/02/2020 8:11 AM CDT [facility] Polychromasia Occasional (A) None 10/02/2020 8:11 AM CDT [facility] Elliptocytes Occasional (A) None 10/02/2020 8:11 AM CDT [facility] nRBC Present Present(A) Absent 10/02/2020 8:11 AM CDT [facility] Large Platelets Occasional (A) None 10/02/2020 8:11 AM CDT [facility] Clumped Platelets Occasional (A) None 10/02/2020 8:11 AM CDT [facility] Blood BLOOD SPECIMEN / Unknown Venipuncture / Unknown 10/02/2020 5:07 AM CDT 10/02/2020 5:15 AM CDT Ryan He MD LAB - AVINASH TOLOGY ORDERABLES Performing Organization Address [facility] Co de Phone Number [facility] [address] [place] [address] * PTT (10/02/2020 5:07 AM CDT) PTT 26.7 23.0 - 38.4 sec 10/02/2020 5:49 AM CDT [facility] Blood BLOOD SPECIMEN / Unknown Venipuncture / Unknown 10/02/2020 5:07 AM CDT 10/02/2020 5:15 AM CDT Narrative [facility] - 10/02/2020 5:49 AM CDT Heparin Therapeutic Range for PTT: ??71.0 - 109.0 seconds. Melodie Maya MD LAB - COAGULATION OR DERABLES Performing Organization Address [facility] Co de Phone Number [facility] [address] [place] [address] * (ABNORMAL) CBC W AUTO DIFFERENTIAL (10/02/2020 5:07 AM CDT) WBC 12.3(H) 4.4 - 10.7 x10E9/L 10/02/2020 5:41 AM CDT [facility] WBC Corrected 10/02/2020 5:41 AM CDT [facility] RBC 4.12 3.80 - 5.20 x10E12/L 10/02/2020 5:41 AM CDT [facility] Hemoglobin 10.3(L) 12.0 - 15.6 gm/dL 10/02/2020 5:41 AM CDT [facility] Hematocrit 33.9(L) 35.9 - 45.5 % 10/02/2020 5:41 AM CDT [facility] MCV 82.3 80.7 - 98.3 fl 10/02/2020 5:41 AM CDT [facility] MCH 25.0(L) 26.7 - 34.0 pg 10/02/2020 5:41 AM CDT [facility] MCHC 30.4(L) 30.8 - 35.9 gm/dL 10/02/2020 5:41 AM CDT [facility] Platelet Count 249 153 - 416 x10E9/L 10/02/2020 5:41 AM CDT [facility] RDW-CV 16.4(H) 12.1 - 14.9 % 10/02/2020 5:41 AM CDT [facility] MPV 10.6 9.4 - 12.9 fl 10/02/2020 5:41 AM CDT [facility] nRBC Auto 2 /100 WBC 10/02/2020 5:41 AM CDT [facility] Blood BLOOD SPECIMEN / Unknown Venipuncture / Unknown 10/02/2020 5:07 AM CDT 10/02/2020 5:15 AM CDT Ryan He MD LAB - AVINASH TOLOGY ORDERABLES [facility] [address] [place] [address] * MAGNESIUM BLOOD (10/02/2020 5:07 AM CDT) Magnesium 2.2 1.6 - 2.6 mg/dL 10/02/2020 5:47 AM CDT [facility] Blood BLOOD SPECIMEN / Unknown Venipuncture / Unknown 10/02/2020 5:07 AM CDT 10/02/2020 5:15 AM CDT Ryan He MD LAB - CHEM ISTRY ORDERABLES [facility] [address] [place] [address] * (ABNORMAL) COMPREHENSIVE METABOLIC PANEL (10/02/2020 5:07 AM CDT) Glucose 157(H) 70 - 105 mg/dL 10/02/2020 5:47 AM CDT [facility] Sodium 133(L) 136 - 145 mmol/L 10/02/2020 5:47 AM CDT [facility] Potassium 4.6 3.5 - 5.1 mmol/L 10/02/2020 5:47 AM CDT [facility] Chloride 107 98 - 107 mmol/L 10/02/2020 5:47 AM CDT [facility] CO2 21(L) 23 - 31 mmol/L 10/02/2020 5:47 AM CDT [facility] Calcium 10.0 8.4 - 10.4 mg/dL 10/02/2020 5:47 AM CDT [facility] Anion Gap 5(L) 8 - 18 mmol/L 10/02/2020 5:47 AM CDT [facility] BUN 11 9.8 - 20.1 mg/dL 10/02/2020 5:47 AM CDT [facility] Creatinine 0.76 0.57 - 1.11 mg/dL 10/02/2020 5:47 AM CDT [facility] Alkaline Phosphatase 94 40 - 150 U/L 10/02/2020 5:47 AM CDT [facility] ALT 18 0 - 61 U/L 10/02/2020 5:47 AM CDT [facility] AST 16 5 - 34 U/L 10/02/2020 5:47 AM CDT [facility] Protein Total 5.7(L) 6.4 - 8.3 gm/dL 10/02/2020 5:47 AM CDT [facility] Albumin 3.2 3.2 - 4.6 gm/dL 10/02/2020 5:47 AM CDT [facility] Bilirubin Total 0.3 0.2 - 1.2 mg/dL 10/02/2020 5:47 AM CDT [facility] eGFR by MDRD >60 mL/min/1.7 3m2 10/02/2020 5:47 AM CDT [facility] eGFR by MDRD >60 mL/min/1.7 3m2 10/02/2020 5:47 AM CDT [facility] Blood BLOOD SPECIMEN / Unknown Venipuncture / Unknown 10/02/2020 5:07 AM CDT 10/02/2020 5:15 AM CDT Ryan He MD LAB - CHEM ISTRY ORDERABLES Performing Organization Address City/[facility]/ZIP Co de Phone Number [facility] [address] [place] [address] [phone] * (ABNORMAL) GLUCOSE - POINT OF CARE (10/01/2020 8:16 PM CDT) Glucose WB/POC 159(H) 70 - 106 mg/dL 10/01/2020 8:54 PM CDT [facility] Specimen Type Arterial/C apillary 10/01/2020 8:54 PM CDT [facility] Blood BLOOD SPECIMEN / Unknown 10/01/2020 8:16 PM CDT 10/01/2020 8:54 PM CDT Ryan He MD LAB - POIN T OF CARE ORDERABLES Performing Organization Address City/[facility]/ZIP Co de Phone Number [facility] [phone] [place] [phone] * (ABNORMAL) GLUCOSE - POINT OF CARE (10/01/2020 5:23 PM CDT) Glucose WB/POC 157(H) 70 - 106 mg/dL 10/01/2020 8:54 PM CDT [facility] Specimen Type Arterial/C apillary 10/01/2020 8:54 PM CDT [facility] Blood BLOOD SPECIMEN / Unknown 10/01/2020 5:23 PM CDT 10/01/2020 8:54 PM CDT Ryan He MD LAB - POIN T OF CARE ORDERABLES Performing Organization Address City/[facility] Co de Phone Number [facility] [address] [place] [address] [phone] * (ABNORMAL) GLUCOSE - POINT OF CARE (10/01/2020 12:37 PM CDT) Glucose WB/POC 235(H) 70 - 106 mg/dL 10/01/2020 12:38 PM CDT [facility] Specimen Type Arterial/C apillary 10/01/2020 12:38 PM CDT [facility] Blood BLOOD SPECIMEN / Unknown 10/01/2020 12:37 PM CDT 10/01/2020 12:38 PM CDT Ryan He MD LAB - POIN T OF CARE ORDERABLES Performing Organization Address [facility] de Phone Number [facility] [address] [place] [phone] * (ABNORMAL) GLUCOSE - POINT OF CARE (10/01/2020 11:04 AM CDT) Glucose WB/POC 165(H) 70 - 106 mg/dL 10/01/2020 11:22 AM CDT [facility] Specimen Type Arterial/C apillary 10/01/2020 11:22 AM CDT [facility] Blood BLOOD SPECIMEN / Unknown 10/01/2020 11:04 AM CDT 10/01/2020 11:21 AM CDT Ryan He MD LAB - POIN T OF CARE ORDERABLES Performing Organization Address [facility] Co de Phone Number [facility] [address] [place] [address] [phone] * CT ANGIO CHEST PULM EMBOLISM (10/01/2020 10:16 AM CDT) Anatomical Region Laterality Modality Chest [...] He MD CT ORDERAB LES * (ABNORMAL) GLUCOSE - POINT OF CARE (10/01/2020 8:30 AM CDT) [facility] Glucose WB/POC 172(H) 70 - 106 mg/dL 10/01/2020 8:43 AM CDT [facility] Specimen Type Arterial/C apillary 10/01/2020 8:43 AM CDT [facility] Blood BLOOD SPECIMEN / Unknown 10/01/2020 8:30 AM CDT 10/01/2020 8:42 AM CDT Ryan He MD LAB - POIN T OF CARE ORDERABLES [facility] [address] [place] [address] * PTT (10/01/2020 4:49 AM CDT) [facility] PTT 30.0 23.0 - 38.4 sec 10/01/2020 5:39 AM CDT [facility] Blood BLOOD SPECIMEN / Unknown Venipuncture / Unknown 10/01/2020 4:49 AM CDT 10/01/2020 5:23 AM CDT Narrative [facility] - 10/01/2020 5:39 AM CDT Heparin Therapeutic Range for PTT: ??71.0 - 109.0 seconds. Melodie Maya MD LAB - COAGULATION OR DERABLES [facility] [address] [place] [address] * (ABNORMAL) CBC W AUTO DIFFERENTIAL (10/01/2020 4:49 AM CDT) WBC 12.2(H) 4.4 - 10.7 x10E9/L 10/01/2020 5:38 AM CDT [facility] WBC Corrected 10/01/2020 5:38 AM CDT [facility] RBC 4.18 3.80 - 5.20 x10E12/L 10/01/2020 5:38 AM CDT [facility] Hemoglobin 10.5(L) 12.0 - 15.6 gm/dL 10/01/2020 5:38 AM CDT [facility] Hematocrit 34.5(L) 35.9 - 45.5 % 10/01/2020 5:38 AM CDT [facility] MCV 82.5 80.7 - 98.3 fl 10/01/2020 5:38 AM CDT [facility] MCH 25.1(L) 26.7 - 34.0 pg 10/01/2020 5:38 AM CDT [facility] MCHC 30.4(L) 30.8 - 35.9 gm/dL 10/01/2020 5:38 AM CDT [facility] Platelet Count 276 153 - 416 x10E9/L 10/01/2020 5:38 AM CDT [facility] RDW-CV 15.9(H) 12.1 - 14.9 % 10/01/2020 5:38 AM CDT [facility] MPV 10.5 9.4 - 12.9 fl 10/01/2020 5:38 AM CDT [facility] Neutrophils % 63.2 44.0 - 73.0 % 10/01/2020 5:38 AM CDT [facility] Lymphocytes % 12.4(L) 20.0 - 43.0 % 10/01/2020 5:38 AM CDT [facility] Monocytes % 15.8(H) 5.0 - 13.0 % 10/01/2020 5:38 AM CDT [facility] [facility] Eosinophils % 2.9 0.0 - 6.0 % 10/01/2020 5:38 AM CDT [facility] Basophils % 1.0 0.0 - 2.0 % 10/01/2020 5:38 AM CDT [facility] Immature Granulocytes 4.7(H) 0 - 1 % 10/01/2020 5:38 AM CDT [facility] Neutrophil Absolute 7.73(H) 2.01 - 7.14 x10E9/L 10/01/2020 5:38 AM CDT [facility] Lymphocytes Absolute 1.52 1.07 - 3.94 x10E9/L 10/01/2020 5:38 AM CDT [facility] Monocytes Absolute 1.93(H) 0.26 - 1.07 x10E9/L 10/01/2020 5:38 AM CDT [facility] Eosinophils Absolute 0.35 0 - 0.47 x10E9/L 10/01/2020 5:38 AM CDT [facility] Basophils Absolute 0.12(H) 0 - 0.08 x10E9/L 10/01/2020 5:38 AM CDT [facility] Immature Granulocytes Absolute 0.57(H) 0.00 - 0.06 x10E9/L 10/01/2020 5:38 AM CDT [facility] nRBC Auto 1 /100 WBC 10/01/2020 5:38 AM CDT [facility] Blood BLOOD SPECIMEN / Unknown Venipuncture / Unknown 10/01/2020 4:49 AM CDT 10/01/2020 5:23 AM CDT Ryan He MD LAB - AVINASH TOLOGY ORDERABLES [facility] [address] [place] [address] * MAGNESIUM BLOOD (10/01/2020 4:49 AM CDT) [facility] Magnesium 2.1 1.6 - 2.6 mg/dL 10/01/2020 5:46 AM CDT [facility] Blood BLOOD SPECIMEN / Unknown Venipuncture / Unknown 10/01/2020 4:49 AM CDT 10/01/2020 5:23 AM CDT Ryan He MD LAB - CHEM ISTRY ORDERABLES [facility] [address] [place] [address] * (ABNORMAL) COMPREHENSIVE METABOLIC PANEL (10/01/2020 4:49 AM CDT) Glucose 170(H) 70 - 105 mg/dL 10/01/2020 5:46 AM CDT [facility] Sodium 134(L) 136 - 145 mmol/L 10/01/2020 5:46 AM CDT [facility] Potassium 4.6 3.5 - 5.1 mmol/L 10/01/2020 5:46 AM CDT [facility] Chloride 108(H) 98 - 107 mmol/L 10/01/2020 5:46 AM CDT [facility] CO2 20(L) 23 - 31 mmol/L 10/01/2020 5:46 AM CDT [facility] Calcium 9.9 8.4 - 10.4 mg/dL 10/01/2020 5:46 AM CDT [facility] Anion Gap 6(L) 8 - 18 mmol/L 10/01/2020 5:46 AM CDT [facility] Comment:Attention clinician: ??Reference Range change. BUN 13 9.8 - 20.1 mg/dL 10/01/2020 5:46 AM CDT [facility] Creatinine 0.81 0.57 - 1.11 mg/dL 10/01/2020 5:46 AM CDT [facility] Alkaline Phosphatase 87 40 - 150 U/L 10/01/2020 5:46 AM CDT [facility] Comment:Attention clinician: ??Reference Range change. ALT 16 0 - 61 U/L 10/01/2020 5:46 AM CDT [facility] AST 15 5 - 34 U/L 10/01/2020 5:46 AM CDT [facility] Protein Total 5.8(L) 6.4 - 8.3 gm/dL 10/01/2020 5:46 AM CDT [facility] Albumin 3.2 3.2 - 4.6 gm/dL 10/01/2020 5:46 AM CDT [facility] Bilirubin Total 0.2 0.2 - 1.2 mg/dL 10/01/2020 5:46 AM CDT [facility] Comment:Attention clinician: ??Reference Range change. eGFR by MDRD >60 mL/min/1.7 3m2 10/01/2020 5:46 AM CDT [facility] eGFR by MDRD >60 mL/min/1.7 3m2 10/01/2020 5:46 AM CDT [facility] Blood BLOOD SPECIMEN / Unknown Venipuncture / Unknown 10/01/2020 4:49 AM CDT 10/01/2020 5:23 AM CDT Ryan He MD LAB - CHEM ISTRY ORDERABLES Performing Organization Address City/[facility] Co de Phone Number [facility] [phone] [place] [phone] * PHOSPHORUS BLOOD (10/01/2020 4:49 AM CDT) Pathologist [facility] Phosphorus 2.6 2.3 - 4.7 mg/dL 10/01/2020 5:46 AM CDT [facility] Blood BLOOD SPECIMEN / Unknown Venipuncture / Unknown 10/01/2020 4:49 AM CDT 10/01/2020 5:23 AM CDT Ryan He MD LAB - CHEM ISTRY ORDERABLES [facility] [address] [place] [address] * (ABNORMAL) GLUCOSE - POINT OF CARE (09/30/2020 10:00 PM CDT) Glucose WB/POC 207(H) 70 - 106 mg/dL 10/01/2020 7:07 AM CDT [facility] Specimen Type Arterial/C apillary 10/01/2020 7:07 AM CDT [facility] Blood BLOOD SPECIMEN / Unknown 09/30/2020 10:00 PM CDT 10/01/2020 7:07 AM CDT Ryan He MD LAB - POIN T OF CARE ORDERABLES [facility] [address] [place] [address] * EKG 12-LEAD (09/30/2020 5:10 PM CDT) Ventricular Rate 80 BPM [facility] Atrial Rate 80 BPM [facility] P-R Interval 204 ms [facility] QRS Duration ms 124 ms [facility] Q-T Interval ms 414 ms [facility] QTC Calculation (Bezet) 477 ms [facility] Calculated P Gardiner 77 degrees [facility] Calculated R Gardiner -112 degrees [facility] Calculated T Gardiner 59 degrees [facility] Interpretation EKG Normal sinus rhythm Possible Lateral infarct (cited on or before 26-SEP-2020 ) Abnormal ECG Confirmed by KENY JACKSON MD ([id number]) on 10/02/2020 7:55:40 PM [facility] 09/30/2020 5:10 PM CDT 10/02/2020 7:55 PM CDT Ryan He MD ECG ORDERA BLES [facility] * (ABNORMAL) TROPONIN I (09/30/2020 4:48 PM CDT) Troponin I 0.051(HH) <0.038 ng/mL 09/30/2020 5:21 PM CDT [facility] Blood BLOOD SPECIMEN / Unknown Venipuncture / Unknown 09/30/2020 4:48 PM CDT 09/30/2020 4:51 PM CDT Ryan He MD LAB - CHEM ISTRY ORDERABLES Performing Organization Address [facility] Co de Phone Number [facility] [address] [place] [address] * (ABNORMAL) GLUCOSE - POINT OF CARE (09/30/2020 3:46 PM CDT) Glucose WB/POC 133(H) 70 - 106 mg/dL 09/30/2020 3:50 PM CDT [facility] Specimen Type Arterial/C apillary 09/30/2020 3:50 PM CDT [facility] Blood BLOOD SPECIMEN / Unknown 09/30/2020 3:46 PM CDT 09/30/2020 3:50 PM CDT Ryan He MD LAB - POIN T OF CARE ORDERABLES Performing Organization Address [facility] Co de Phone Number [facility] [address] [place] [phone] * (ABNORMAL) GLUCOSE - POINT OF CARE (09/30/2020 11:27 AM CDT) Glucose WB/POC 173(H) 70 - 106 mg/dL 09/30/2020 11:41 AM CDT [facility] Specimen Type Arterial/C apillary 09/30/2020 11:41 AM CDT [facility] Blood BLOOD SPECIMEN / Unknown 09/30/2020 11:27 AM CDT 09/30/2020 11:41 AM CDT Ryan He MD LAB - POIN T OF CARE ORDERABLES Performing Organization Address [facility] Co de Phone Number [facility] [phone] [place] [address] * ECHOCARDIOGRAM 2D WITH DOPPLER (09/30/2020 10:15 AM CDT) 09/30/2020 10:1 5 AM CDT Narrative Procedure Note Willie Villa MD - 09/30/2020 . [address] [place] [place] [id number] Echocardiography Examination Transthoracic Name: [facility]#: MR#: [id number] Admission Number: [id number] Study Date: 09/30/2020 Study Time: 09:15 AM [...] to opacify the left ventricle. Facility Location: [facility] Indication: CHF Re-assess RV function Procedure Event Coordinator Marketing And Sales: Agatha Negrete RDCS Ordering Provider: Melodie Maya MD Reading Physician: Willie Villa MD Reading Group: [place] [employer] Conclusions Left Ventricle: ? ? Left ventricle [...] of 2 Melodie Maya MD ECHO ORDERABLES Performing Organization Address City/[facility]/ZIP Co de Phone Number [facility] * (ABNORMAL) GLUCOSE - POINT OF CARE (09/30/2020 7:33 AM CDT) [facility] Glucose WB/POC 153(H) 70 - 106 mg/dL 10/02/2020 9:46 AM CDT [facility] Specimen Type Arterial/C apillary 10/02/2020 9:46 AM CDT [facility] Blood BLOOD SPECIMEN / Unknown 09/30/2020 7:33 AM CDT 10/02/2020 9:46 AM CDT Ryan He MD LAB - POIN T OF CARE ORDERABLES Performing Organization Address City/[facility]/ZIP Co de Phone Number [facility] [address] [place] [phone] * (ABNORMAL) CBC W AUTO DIFFERENTIAL (09/30/2020 5:47 AM CDT) [facility] WBC 10.3 4.4 - 10.7 x10E9/L 09/30/2020 5:58 AM CDT [facility] WBC Corrected 09/30/2020 5:58 AM CDT [facility] RBC 4.32 3.80 - 5.20 x10E12/L 09/30/2020 5:58 AM CDT [facility] Hemoglobin 10.7(L) 12.0 - 15.6 gm/dL 09/30/2020 5:58 AM CDT [facility] Hematocrit 34.8(L) 35.9 - 45.5 % 09/30/2020 5:58 AM CDT [facility] MCV 80.6(L) 80.7 - 98.3 fl 09/30/2020 5:58 AM CDT [facility] MCH 24.8(L) 26.7 - 34.0 pg 09/30/2020 5:58 AM CDT [facility] MCHC 30.7(L) 30.8 - 35.9 gm/dL 09/30/2020 5:58 AM CDT [facility] Platelet Count 281 153 - 416 x10E9/L 09/30/2020 5:58 AM CDT [facility] RDW-CV 15.7(H) 12.1 - 14.9 % 09/30/2020 5:58 AM CDT [facility] MPV 10.4 9.4 - 12.9 fl 09/30/2020 5:58 AM CDT [facility] Neutrophils % 59.5 44.0 - 73.0 % 09/30/2020 5:58 AM CDT [facility] Lymphocytes % 16.7(L) 20.0 - 43.0 % 09/30/2020 5:58 AM CDT [facility] Monocytes % 19.2(H) 5.0 - 13.0 % 09/30/2020 5:58 AM CDT [facility] Eosinophils % 2.1 0.0 - 6.0 % 09/30/2020 5:58 AM CDT [facility] Basophils % 0.9 0.0 - 2.0 % 09/30/2020 5:58 AM CDT [facility] Immature Granulocytes 1.6(H) 0 - 1 % 09/30/2020 5:58 AM CDT [facility] Neutrophil Absolute 6.12 2.01 - 7.14 x10E9/L 09/30/2020 5:58 AM CDT [facility] Lymphocytes Absolute 1.72 1.07 - 3.94 x10E9/L 09/30/2020 5:58 AM CDT [facility] Monocytes Absolute 1.98(H) 0.26 - 1.07 x10E9/L 09/30/2020 5:58 AM CDT [facility] Eosinophils Absolute 0.22 0 - 0.47 x10E9/L 09/30/2020 5:58 AM CDT [facility] Basophils Absolute 0.09(H) 0 - 0.08 x10E9/L 09/30/2020 5:58 AM CDT [facility] Immature Granulocytes Absolute 0.16(H) 0.00 - 0.06 x10E9/L 09/30/2020 5:58 AM CDT [facility] nRBC Auto 0 /100 WBC 09/30/2020 5:58 AM CDT [facility] Blood BLOOD SPECIMEN / Unknown Venipuncture / Unknown 09/30/2020 5:47 AM CDT 09/30/2020 5:52 AM CDT Ryan He MD LAB - AVINASH TOLOGY ORDERABLES Performing Organization Address [facility] de Phone Number [facility] [address] [place] [phone] * MAGNESIUM BLOOD (09/30/2020 5:47 AM CDT) Magnesium 2.2 1.6 - 2.6 mg/dL 09/30/2020 6:08 AM CDT [facility] Blood BLOOD SPECIMEN / Unknown Venipuncture / Unknown 09/30/2020 5:47 AM CDT 09/30/2020 5:52 AM CDT Ryan He MD LAB - CHEM ISTRY ORDERABLES Performing Organization Address City/[facility] Co de Phone Number [facility] [address] [place] [address] * (ABNORMAL) COMPREHENSIVE METABOLIC PANEL (09/30/2020 5:47 AM CDT) Glucose 159(H) 70 - 105 mg/dL 09/30/2020 6:08 AM CDT [facility] Sodium 133(L) 136 - 145 mmol/L 09/30/2020 6:08 AM CDT [facility] Potassium 4.4 3.5 - 5.1 mmol/L 09/30/2020 6:08 AM CDT [facility] Chloride 104 98 - 107 mmol/L 09/30/2020 6:08 AM CDT [facility] CO2 21(L) 23 - 31 mmol/L 09/30/2020 6:08 AM CDT [facility] Calcium 10.1 8.4 - 10.4 mg/dL 09/30/2020 6:08 AM CDT [facility] Anion Gap 8 8 - 18 mmol/L 09/30/2020 6:08 AM CDT [facility] Comment:Attention clinician: ??Reference Range change. BUN 14 9.8 - 20.1 mg/dL 09/30/2020 6:08 AM CDT [facility] Creatinine 0.78 0.57 - 1.11 mg/dL 09/30/2020 6:08 AM CDT [facility] Alkaline Phosphatase 88 40 - 150 U/L 09/30/2020 6:08 AM CDT [facility] Comment:Attention clinician: ??Reference Range change. ALT 18 0 - 61 U/L 09/30/2020 6:08 AM CDT [facility] AST 12 5 - 34 U/L 09/30/2020 6:08 AM CDT [facility] Protein Total 5.9(L) 6.4 - 8.3 gm/dL 09/30/2020 6:08 AM CDT [facility] Albumin 3.3 3.2 - 4.6 gm/dL 09/30/2020 6:08 AM CDT [facility] Bilirubin Total 0.3 0.2 - 1.2 mg/dL 09/30/2020 6:08 AM CDT [facility] Comment:Attention clinician: ??Reference Range change. eGFR by MDRD >60 mL/min/1.7 3m2 09/30/2020 6:08 AM CDT [facility] eGFR by MDRD >60 mL/min/1.7 3m2 09/30/2020 6:08 AM CDT [facility] Blood BLOOD SPECIMEN / Unknown Venipuncture / Unknown 09/30/2020 5:47 AM CDT 09/30/2020 5:52 AM CDT Ryan He MD LAB - CHEM ISTRY ORDERABLES Performing Organization Address [facility] Co de Phone Number [facility] [address] [place] [phone] * PTT (09/30/2020 5:47 AM CDT) PTT 28.0 23.0 - 38.4 sec 09/30/2020 6:07 AM CDT [facility] Blood BLOOD SPECIMEN / Unknown Venipuncture / Unknown 09/30/2020 5:47 AM CDT 09/30/2020 5:52 AM CDT Narrative [facility] - 09/30/2020 6:07 AM CDT Heparin Therapeutic Range for PTT: ??71.0 - 109.0 seconds. Ryan He MD LAB - COAG ULATION ORDERABLES Performing Organization Address [facility] de Phone Number [facility] [address] [place] [phone] * PHOSPHORUS BLOOD (09/30/2020 5:47 AM CDT) Phosphorus 2.6 2.3 - 4.7 mg/dL 09/30/2020 6:08 AM CDT [facility] Blood BLOOD SPECIMEN / Unknown Venipuncture / Unknown 09/30/2020 5:47 AM CDT 09/30/2020 5:52 AM CDT Ryan He MD LAB - CHEM ISTRY ORDERABLES Performing Organization Address [facility] Co de Phone Number [facility] [address] [place] [address] * (ABNORMAL) GLUCOSE - POINT OF CARE (09/29/2020 9:22 PM CDT) Glucose WB/POC 198(H) 70 - 106 mg/dL 09/29/2020 9:28 PM CDT [facility] Specimen Type Arterial/C apillary 09/29/2020 9:28 PM CDT [facility] Blood BLOOD SPECIMEN / Unknown 09/29/2020 9:22 PM CDT 09/29/2020 9:28 PM CDT Ryan He MD LAB - POIN T OF CARE ORDERABLES Performing Organization Address [facility] Co de Phone Number [facility] [address] [place] [address] * (ABNORMAL) GLUCOSE - POINT OF CARE (09/29/2020 4:20 PM CDT) Pathologist [facility] Glucose WB/POC 196(H) 70 - 106 mg/dL 09/29/2020 8:55 PM CDT [facility] Specimen Type Venous 09/29/2020 8:55 PM CDT [facility] Blood BLOOD SPECIMEN / Unknown 09/29/2020 4:20 PM CDT 09/29/2020 8:54 PM CDT Ryan He MD LAB - POIN T OF CARE ORDERABLES Performing Organization Address [facility] Co de Phone Number [facility] [address] [place] [address] * XR CHEST 1VW PORTABLE (09/29/2020 4:01 PM CDT) Anatomical Region Laterality Modality Chest Radiographic Mireya ging 09/29/2020 4:02 PM CDT Impressions 09/29/2020 4:03 PM CDT No acute process . *Reading Radiologist: Julian North on 09/29/2020 at 4:03 PM Narrative 09/29/2020 4:03 PM CDT Portable Chest AP History: Shortness of breath FINDINGS: Prior from 04/07/2021. Heart is enlarged. Lungs are clear. No pneumothorax or pleural effusion. No fracture. Procedure Note Julian North MD - 09/29/2020 Portable Chest AP History: Shortness of breath FINDINGS: Prior from 04/07/2021. Heart is enlarged. Lungs are clear. No pneumothorax or pleural effusion. No fracture. IMPRESSION No acute process . *Reading Radiologist: Julian North on 09/29/2020 at 4:03 PM Phuong Tirado [employer]ING ORDERABLES * (ABNORMAL) GLUCOSE - POINT OF CARE (09/29/2020 12:50 PM CDT) Glucose WB/POC 183(H) 70 - 106 mg/dL 09/29/2020 12:53 PM CDT [facility] Specimen Type Arterial/C apillary 09/29/2020 12:53 PM CDT [facility] Blood BLOOD SPECIMEN / Unknown 09/29/2020 12:50 PM CDT 09/29/2020 12:53 PM CDT Ryan He MD LAB - POIN T OF CARE ORDERABLES Performing Organization Address City/[facility] Co de Phone Number [facility] [phone] [place] [phone] * (ABNORMAL) GLUCOSE - POINT OF CARE (09/29/2020 8:04 AM CDT) Glucose WB/POC 153(H) 70 - 106 mg/dL 09/29/2020 9:05 AM CDT [facility] Specimen Type Venous 09/29/2020 9:05 AM CDT [facility] Blood BLOOD SPECIMEN / Unknown 09/29/2020 8:04 AM CDT 09/29/2020 9:05 AM CDT Ryan He MD LAB - POIN T OF CARE ORDERABLES Performing Organization Address City/[facility] Co de Phone Number [facility] [address] [place] [address] * (ABNORMAL) PTT (09/29/2020 4:51 AM CDT) PTT 122.6(H) 23.0 - 38.4 sec 09/29/2020 5:29 AM CDT [facility] Blood BLOOD SPECIMEN / Unknown Venipuncture / Unknown 09/29/2020 4:51 AM CDT 09/29/2020 5:01 AM CDT Narrative [facility] - 09/29/2020 5:29 AM CDT Heparin Therapeutic Range for PTT: ??71.0 - 109.0 seconds. Melodie Maya MD LAB - COAGULATION OR DERABLES [facility] [address] [place] [address] * (ABNORMAL) CBC W AUTO DIFFERENTIAL (09/29/2020 4:51 AM CDT) WBC 14.3(H) 4.4 - 10.7 x10E9/L 09/29/2020 5:09 AM CDT [facility] WBC Corrected 09/29/2020 5:09 AM CDT [facility] RBC 4.50 3.80 - 5.20 x10E12/L 09/29/2020 5:09 AM CDT [facility] Hemoglobin 11.2(L) 12.0 - 15.6 gm/dL 09/29/2020 5:09 AM CDT [facility] Hematocrit 35.0(L) 35.9 - 45.5 % 09/29/2020 5:09 AM CDT [facility] MCV 77.8(L) 80.7 - 98.3 fl 09/29/2020 5:09 AM CDT [facility] MCH 24.9(L) 26.7 - 34.0 pg 09/29/2020 5:09 AM CDT [facility] MCHC 32.0 30.8 - 35.9 gm/dL 09/29/2020 5:09 AM CDT [facility] Platelet Count 299 153 - 416 x10E9/L 09/29/2020 5:09 AM CDT [facility] RDW-CV 15.9(H) 12.1 - 14.9 % 09/29/2020 5:09 AM CDT [facility] MPV 10.5 9.4 - 12.9 fl 09/29/2020 5:09 AM CDT [facility] Neutrophils % 65.6 44.0 - 73.0 % 09/29/2020 5:09 AM CDT [facility] Lymphocytes % 12.5(L) 20.0 - 43.0 % 09/29/2020 5:09 AM CDT [facility] Monocytes % 18.9(H) 5.0 - 13.0 % 09/29/2020 5:09 AM CDT [facility] Eosinophils % 1.4 0.0 - 6.0 % 09/29/2020 5:09 AM CDT [facility] Basophils % 0.5 0.0 - 2.0 % 09/29/2020 5:09 AM CDT [facility] Immature Granulocytes 1.1(H) 0 - 1 % 09/29/2020 5:09 AM CDT [facility] Neutrophil Absolute 9.37(H) 2.01 - 7.14 x10E9/L 09/29/2020 5:09 AM CDT [facility] Lymphocytes Absolute 1.78 1.07 - 3.94 x10E9/L 09/29/2020 5:09 AM CDT [facility] Monocytes Absolute 2.69(H) 0.26 - 1.07 x10E9/L 09/29/2020 5:09 AM CDT [facility] Eosinophils Absolute 0.20 0 - 0.47 x10E9/L 09/29/2020 5:09 AM CDT [facility] Basophils Absolute 0.07 0 - 0.08 x10E9/L 09/29/2020 5:09 AM CDT [facility] Immature Granulocytes Absolute 0.15(H) 0.00 - 0.06 x10E9/L 09/29/2020 5:09 AM CDT [facility] nRBC Auto 0 /100 WBC 09/29/2020 5:09 AM CDT [facility] Blood BLOOD SPECIMEN / Unknown Venipuncture / Unknown 09/29/2020 4:51 AM CDT 09/29/2020 5:01 AM CDT Ryan He MD LAB - AVINASH TOLOGY ORDERABLES [facility] [address] [place] [address] * MAGNESIUM BLOOD (09/29/2020 4:51 AM CDT) Pathologist [facility] Magnesium 2.2 1.6 - 2.6 mg/dL 09/29/2020 5:29 AM CDT [facility] Blood BLOOD SPECIMEN / Unknown Venipuncture / Unknown 09/29/2020 4:51 AM CDT 09/29/2020 5:01 AM CDT Ryan He MD LAB - CHEM ISTRY ORDERABLES [facility] [id number] [place] [address] * (ABNORMAL) COMPREHENSIVE METABOLIC PANEL (09/29/2020 4:51 AM CDT) Pathologist [facility] Glucose 174(H) 70 - 105 mg/dL 09/29/2020 5:41 AM CDT [facility] Sodium 132(L) 136 - 145 mmol/L 09/29/2020 5:41 AM CDT [facility] Potassium 3.3(L) 3.5 - 5.1 mmol/L 09/29/2020 5:41 AM CDT [facility] Chloride 99 98 - 107 mmol/L 09/29/2020 5:41 AM CDT [facility] CO2 24 23 - 31 mmol/L 09/29/2020 5:41 AM CDT [facility] Calcium 9.3 8.4 - 10.4 mg/dL 09/29/2020 5:41 AM CDT [facility] Anion Gap 9 8 - 18 mmol/L 09/29/2020 5:41 AM CDT [facility] Comment:Attention clinician: ??Reference Range change. BUN 18 9.8 - 20.1 mg/dL 09/29/2020 5:41 AM CDT [facility] Creatinine 0.83 0.57 - 1.11 mg/dL 09/29/2020 5:41 AM CDT [facility] Alkaline Phosphatase 89 40 - 150 U/L 09/29/2020 5:41 AM CDT [facility] Comment:Attention clinician: ??Reference Range change. ALT 21 0 - 61 U/L 09/29/2020 5:41 AM CDT [facility] AST 17 5 - 34 U/L 09/29/2020 5:41 AM CDT [facility] Protein Total 6.0(L) 6.4 - 8.3 gm/dL 09/29/2020 5:41 AM CDT [facility] Albumin 3.4 3.2 - 4.6 gm/dL 09/29/2020 5:41 AM CDT [facility] Bilirubin Total 0.4 0.2 - 1.2 mg/dL 09/29/2020 5:41 AM CDT [facility] Comment:Attention clinician: ??Reference Range change. eGFR by MDRD >60 mL/min/1.7 3m2 09/29/2020 5:41 AM CDT [facility] eGFR by MDRD >60 mL/min/1.7 3m2 09/29/2020 5:41 AM CDT [facility] Blood BLOOD SPECIMEN / Unknown Venipuncture / Unknown 09/29/2020 4:51 AM CDT 09/29/2020 5:01 AM CDT Ryan He MD LAB - CHEM ISTRY ORDERABLES Performing Organization Address City/[facility] Co de Phone Number [facility] [id number] [place] [address] * PHOSPHORUS BLOOD (09/29/2020 4:51 AM CDT) Phosphorus 3.0 2.3 - 4.7 mg/dL 09/29/2020 5:29 AM CDT [facility] Blood BLOOD SPECIMEN / Unknown Venipuncture / Unknown 09/29/2020 4:51 AM CDT 09/29/2020 5:01 AM CDT Ryan He MD LAB - CHEM ISTRY ORDERABLES Performing Organization Address City/[facility]/ZIP Co de Phone Number [facility] [id number] [place] [address] * (ABNORMAL) GLUCOSE - POINT OF CARE (09/28/2020 9:43 PM CDT) Glucose WB/POC 198(H) 70 - 106 mg/dL 09/29/2020 6:03 AM CDT [facility] Specimen Type Arterial/C apillary 09/29/2020 6:03 AM CDT [facility] Blood BLOOD SPECIMEN / Unknown 09/28/2020 9:43 PM CDT 09/29/2020 6:03 AM CDT Ryan He MD LAB - POIN T OF CARE ORDERABLES Performing Organization Address [facility] Co de Phone Number [facility] [address] [place] [phone] * (ABNORMAL) GLUCOSE - POINT OF CARE (09/28/2020 4:04 PM CDT) [facility] Glucose WB/POC 227(H) 70 - 106 mg/dL 09/28/2020 4:09 PM CDT [facility] Specimen Type Arterial/C apillary 09/28/2020 4:09 PM CDT [facility] Blood BLOOD SPECIMEN / Unknown 09/28/2020 4:04 PM CDT 09/28/2020 4:09 PM CDT Ryan He MD LAB - POIN T OF CARE ORDERABLES Performing Organization Address [facility] de Phone Number [facility] [address] [place] [phone] * VAS BILATERAL VENOUS DUPLEX LE (09/28/2020 2:04 PM CDT) Anatomical Region Laterality Modality Lower Extremity Ultrasound 09/28/2020 1:17 PM CDT Narrative Procedure Note Adan Pinzon MD - 09/28/[address] [address] Lower Extremity Venous Ultrasound Report Pat.Name: LOC LEON [place]ula.ID: [id number] St.Date: 09/28/2020 Exam Time: 1:17:00 PM Study Type:LE Venous Age: 7 1940,79Y Sex: FEMALE Sonogrphr: Raghu Mccray, RVT Pat. Stat.:Inpatient Room[facility] Reason for Study: I26.99 PE, other, unspecified chronicity, unspecified whether acute cor pulmonale present, I50.9 Acute CHF, unspecified type History / Clinical: Hypertension, Diabetes, Coronary artery disease, Obesity, Atrial fibrillation, Hyperlipidemia, TIA, Breast cancer Procedures: Lower Extremity Venous - Bilateral Race: 1 Visit ID: [id number] ++++++++++++++++++++++++++++++++++++ SUMMARY: ++++++++++++++++++++++++++++++++++++ There is no evidence [...] He MD VASCULAR L AB ORDERABLES * FERRITIN (09/28/2020 1:04 PM CDT) Ferritin 18 5 - 204 ng/mL 09/28/2020 1:59 PM CDT [facility] Blood BLOOD SPECIMEN / Unknown Venipuncture / Unknown 09/28/2020 1:04 PM CDT 09/28/2020 1:15 PM CDT Ryan He MD LAB - CHEM ISTRY ORDERABLES Performing Organization Address City/[facility] Co de Phone Number [facility] [address] [place] [address] * (ABNORMAL) IRON + TRANSFERRIN PANEL (09/28/2020 1:04 PM CDT) Iron 17(L) 50 - 170 ug/dL 09/28/2020 1:38 PM CDT [facility] Comment:Attention clinician: Reference Range change. Transferrin 304 173 - 360 mg/dL 09/28/2020 1:38 PM CDT [facility] Comment:Attention clinician: Reference Range change. TIBC Calculated 380 240 - 450 ug/dL 09/28/2020 1:38 PM CDT [facility] Iron Saturation % 4(L) 20 - 50 % 09/28/2020 1:38 PM CDT [facility] Blood BLOOD SPECIMEN / Unknown Venipuncture / Unknown 09/28/2020 1:04 PM CDT 09/28/2020 1:15 PM CDT Ryan He MD LAB - CHEM ISTRY ORDERABLES Performing Organization Address [facility] de Phone Number [facility] [phone] [place] [phone] * PTH RELATED PEPTIDE (09/28/2020 1:04 PM CDT) PTH Related Peptide <2.0 pmol/L 10/04 4:10 PM CDT [facility] ([facility]) Comment: This test was developed and its performance characteristics determined by [facility]. It has not been cleared or approved [...] PM CDT 09/28/2020 1:15 PM CDT Narrative [facility] ([facility]) - 10/04/2020 4:10 PM CDT Performed at: ??01 - [employer] [address], [place] ??[id number] Attending Ambulatory Care: Thaddeus Ocampo MD, Phone: ??[phone] Ryan He MD LAB - CHEM ISTRY ORDERABLES [facility] ([facility]) [address] [place] [address] * (ABNORMAL) PTH INTACT (09/28/2020 1:04 PM CDT) PTH Intact 167.7(H) 8.7 - 77.1 pg/mL 09/28/2020 2:25 PM CDT [facility] Calcium 9.6 8.4 - 10.4 mg/dL 09/28/2020 2:25 PM CDT [facility] Blood BLOOD SPECIMEN / Unknown Venipuncture / Unknown 09/28/2020 1:04 PM CDT 09/28/2020 1:15 PM CDT Ryan He MD LAB - CHEM ISTRY ORDERABLES [facility] [address] [place] [phone] * (ABNORMAL) VITAMIN D 25-HYDROXY (09/28/2020 1:04 PM CDT) Vitamin D, 25 Hydroxy 29.0(L) 30 - 100 ng/mL 09/28/2020 1:59 PM CDT [facility] Blood BLOOD SPECIMEN / Unknown Venipuncture / Unknown 09/28/2020 1:04 PM CDT 09/28/2020 1:15 PM CDT Narrative [facility] - 09/28/2020 1:59 PM CDT Vitamin D Status: ?Deficiency ? <20 ? ng/mL ?Insufficiency ?? 20-30 ??ng/mL ?Sufficiency ? 30-100 ng/mL ?Toxicity ? >100 ?ng/mL Ryan He MD LAB - CHEM ISTRY ORDERABLES Performing Organization Address [facility] Co de Phone Number [facility] [address] [place] [phone] * VITAMIN D 1,25 DIHYDROXY (09/28/2020 1:04 PM CDT) [facility] Calcitriol (1,25 di-OH Vit D) 41.9 19.9 - 79.3 pg/mL 09/30/2020 1:07 PM CDT [facility] ([facility]) Blood BLOOD SPECIMEN / Unknown Venipuncture / Unknown 09/28/2020 1:04 PM CDT 09/28/2020 1:15 PM CDT Narrative [facility] ([facility]) - 09/30/2020 1:07 PM CDT Performed at: ??01 - [facility] [address] ??[id number] Attending Ambulatory Care: Lo Luna MD, Phone: ??[phone] Ryan He MD LAB - CHEM ISTRY ORDERABLES Performing Organization Address [facility] Co de Phone Number [facility] ([facility]) [address] [place] [address] * (ABNORMAL) GLUCOSE - POINT OF CARE (09/28/2020 12:31 PM CDT) [facility] Glucose WB/POC 176(H) 70 - 106 mg/dL 09/28/2020 4:09 PM CDT [facility] Specimen Type Arterial/C apillary 09/28/2020 4:09 PM CDT [facility] Blood BLOOD SPECIMEN / Unknown 09/28/2020 12:31 PM CDT 09/28/2020 4:08 PM CDT Ryan He MD LAB - IN [facility] ORDERABLES [facility] [address] [place] [address] * IR TRANSLUM THROMBECTOMY ARTERIAL (09/28/2020 10:48 [...] medications were reviewed prior to the procedure. Cadmium Liquor Maker: Nelson Azar M.D. Fluoroscopy time: 25 [...] vena cava under fluoroscopic guidance. A 6 Tajik sheath was inserted. An inferior venacavogram was performed. Inferior venacavogram showed no IVC or thrombus within the right iliac vein. The right heart was negotiated and an superstiff Amplatz wire passed into the right lower lobe pulmonary artery. Exchange is made for a 24 Tajik sheath. The Inari catheter was then passed over the wire into the main trunk pulmonary artery and suction thrombectomy was performed. The catheter was advanced into the right main pulmonary artery and suction thrombectomy was performed. Catheter was then advanced into the interlobar pulmonary artery and suction thrombectomy performed. Considerable clot was aspirated. Next, a time analysis clerk catheter was negotiated and the wire passed [...] ORDERABLES * HEMOGLOBIN (09/28/2020 10:24 AM CDT) Pathologist [facility] Hemoglobin 12.3 12.0 - 15.6 gm/dL 09/28/2020 10:41 AM CDT [facility] Blood BLOOD SPECIMEN / Unknown Venipuncture / Unknown 09/28/2020 10:24 AM CDT 09/28/2020 10:26 AM CDT Nelson Azar MD LAB - HEMATOLOGY ORD ERABLES [facility] [address] [place] [address] * (ABNORMAL) PT PTT PANEL (09/28/2020 1:55 AM CDT) Pathologist [facility] PT 13.9 12.1 - 14.8 sec 09/28/2020 2:16 AM CDT [facility] INR 1.1 0.9 - 1.1 09/28/2020 2:16 AM CDT [facility] PTT 101.4(H) 23.0 - 38.4 sec 09/28/2020 2:16 AM CDT [facility] Blood BLOOD SPECIMEN / Unknown Venipuncture / Unknown 09/28/2020 1:55 AM CDT 09/28/2020 2:01 AM CDT Narrative [facility] - 09/28/2020 2:16 AM CDT Conventional Warfarin Anticoagulant Therapy: INR Reference Range: ??2.0-3.0 Intensive Warfarin Anticoagulant Therapy: INR Reference Range: ? 2.5-3.5 Heparin Therapeutic Range for PTT: ??71.0 - 109.0 seconds. Ryan He MD LAB - COAG ULATION ORDERABLES [facility] [address] [place] [address] * (ABNORMAL) CBC W AUTO DIFFERENTIAL (09/28/2020 1:55 AM CDT) WBC 13.9(H) 4.4 - 10.7 x10E9/L 09/28/2020 2:05 AM CDT [facility] WBC Corrected 09/28/2020 2:05 AM CDT [facility] RBC 5.10 3.80 - 5.20 x10E12/L 09/28/2020 2:05 AM CDT [facility] Hemoglobin 12.7 12.0 - 15.6 gm/dL 09/28/2020 2:05 AM CDT [facility] Hematocrit 40.0 35.9 - 45.5 % 09/28/2020 2:05 AM CDT [facility] MCV 78.4(L) 80.7 - 98.3 fl 09/28/2020 2:05 AM CDT [facility] MCH 24.9(L) 26.7 - 34.0 pg 09/28/2020 2:05 AM CDT [facility] MCHC 31.8 30.8 - 35.9 gm/dL 09/28/2020 2:05 AM CDT [facility] Platelet Count 316 153 - 416 x10E9/L 09/28/2020 2:05 AM CDT [facility] RDW-CV 15.9(H) 12.1 - 14.9 % 09/28/2020 2:05 AM CDT [facility] MPV 10.2 9.4 - 12.9 fl 09/28/2020 2:05 AM CDT [facility] Neutrophils % 65.1 44.0 - 73.0 % 09/28/2020 2:05 AM CDT [facility] Lymphocytes % 14.8(L) 20.0 - 43.0 % 09/28/2020 2:05 AM CDT [facility] Monocytes % 17.4(H) 5.0 - 13.0 % 09/28/2020 2:05 AM CDT [facility] Eosinophils % 1.6 0.0 - 6.0 % 09/28/2020 2:05 AM CDT [facility] Basophils % 0.4 0.0 - 2.0 % 09/28/2020 2:05 AM CDT [facility] Immature Granulocytes 0.7 0 - 1 % 09/28/2020 2:05 AM CDT [facility] Neutrophil Absolute 9.05(H) 2.01 - 7.14 x10E9/L 09/28/2020 2:05 AM CDT [facility] Lymphocytes Absolute 2.05 1.07 - 3.94 x10E9/L 09/28/2020 2:05 AM CDT [facility] Monocytes Absolute 2.41(H) 0.26 - 1.07 x10E9/L 09/28/2020 2:05 AM CDT [facility] Eosinophils Absolute 0.22 0 - 0.47 x10E9/L 09/28/2020 2:05 AM CDT [facility] Basophils Absolute 0.06 0 - 0.08 x10E9/L 09/28/2020 2:05 AM CDT [facility] Immature Granulocytes Absolute 0.10(H) 0.00 - 0.06 x10E9/L 09/28/2020 2:05 AM CDT [facility] nRBC Auto 0 /100 WBC 09/28/2020 2:05 AM CDT [facility] Blood BLOOD SPECIMEN / Unknown Venipuncture / Unknown 09/28/2020 1:55 AM CDT 09/28/2020 2:01 AM CDT James Harrell MD LAB - HEMATOLOGY ORD ERABLES [facility] [address] [place], [place] [id number] * LACTIC ACID BLOOD (09/28/2020 1:55 AM CDT) Lactic Acid 0.91 0.5 - 2.2 mmol/L 09/28/2020 2:16 AM CDT [facility] Blood BLOOD SPECIMEN / Unknown Venipuncture / Unknown 09/28/2020 1:55 AM CDT 09/28/2020 2:01 AM CDT Sheyla Sparks BUFFERER-HOME ORGANIZER LAB - CHEMISTRY O RDERABLES Performing Organization Address [facility] Co de Phone Number [facility] [address] [place] [address] [phone] * (ABNORMAL) GLUCOSE - POINT OF CARE (09/27/2020 9:40 PM CDT) Glucose WB/POC 158(H) 70 - 106 mg/dL 09/27/2020 9:48 PM CDT [facility] Specimen Type Venous 09/27/2020 9:48 PM CDT [facility] Blood BLOOD SPECIMEN / Unknown 09/27/2020 9:40 PM CDT 09/27/2020 9:48 PM CDT Ryan He MD LAB - POIN T OF CARE ORDERABLES Performing Organization Address [facility] Co de Phone Number [facility] [address] [place], [place] [phone] * (ABNORMAL) PTT (09/27/2020 7:58 PM CDT) PTT 99.2(H) 23.0 - 38.4 sec 09/27/2020 8:35 PM CDT [facility] Blood BLOOD SPECIMEN / Unknown Venipuncture / Unknown 09/27/2020 7:58 PM CDT 09/27/2020 8:02 PM CDT Narrative [facility] - 09/27/2020 8:35 PM CDT Heparin Therapeutic Range for PTT: ??71.0 - 109.0 seconds. Ryan He MD LAB - COAG ULATION ORDERABLES Performing Organization Address [facility] Co de Phone Number [facility] [phone] [place] [address] * (ABNORMAL) GLUCOSE - POINT OF CARE (09/27/2020 3:26 PM CDT) Glucose WB/POC 191(H) 70 - 106 mg/dL 09/27/2020 3:46 PM CDT [facility] Specimen Type Arterial/C apillary 09/27/2020 3:46 PM CDT [facility] Blood BLOOD SPECIMEN / Unknown 09/27/2020 3:26 PM CDT 09/27/2020 3:46 PM CDT Ryan He MD LAB - POIN T OF CARE ORDERABLES Performing Organization Address [facility] de Phone Number [facility] [phone] [place] [phone] * (ABNORMAL) PTT (09/27/2020 1:17 PM CDT) PTT 66.0(H) 23.0 - 38.4 sec 09/27/2020 1:39 PM CDT [facility] Blood BLOOD SPECIMEN / Unknown Venipuncture / Unknown 09/27/2020 1:17 PM CDT 09/27/2020 1:21 PM CDT Narrative [facility] - 09/27/2020 1:39 PM CDT Heparin Therapeutic Range for PTT: ??71.0 - 109.0 seconds. Ryan He MD LAB - COAG ULATION ORDERABLES Performing Organization Address [facility] Co de Phone Number [facility] [phone] [place] [phone] * (ABNORMAL) GLUCOSE - POINT OF CARE (09/27/2020 11:32 AM CDT) Glucose WB/POC 165(H) 70 - 106 mg/dL 09/27/2020 12:14 PM CDT [facility] Specimen Type Arterial/C apillary 09/27/2020 12:14 PM CDT [facility] Blood BLOOD SPECIMEN / Unknown 09/27/2020 11:32 AM CDT 09/27/2020 12:14 PM CDT Ryan He MD LAB - POIN T OF [facility] ORDERABLES [facility] [address] [place] [address] * (ABNORMAL) CULTURE URINE (09/27/2020 8:31 AM CDT) Pathologist [facility] Culture Urine >100,000 CFU/mL Escherichia coli(A) DRAKE 09/30/2020 6:50 AM CDT [facility] Culture Urine >100,000 CFU/mL Enterococcus faecalis(A) DRAKE 09/30/2020 6:50 AM CDT [facility] Urine URINE SPECIMEN OBTAINED BY CLEAN CATCH PROCEDURE / Unknown Collection / Unknown 09/27/2020 8:31 AM CDT 09/27/2020 1:23 PM CDT Narrative Organism Antibiotic Method Susceptibility Escherichia coli Amikacin DRAKE <=2 ug/mL: Susceptible Escherichia coli Ampicillin DRAKE 8 ug/mL: Susceptible Escherichia coli Ampicillin-sulbactam DRAKE 4 ug/mL: Susceptible Escherichia coli Cefazolin DRAKE <=4 ug/mL: Susceptible Escherichia coli Cefepime DRAKE <=1 ug/mL: Susceptible Escherichia coli Ceftriaxone DRAKE <=1 ug/mL: Susceptible Escherichia coli Ciprofloxacin DRAKE <=0.25 ug/mL: Susceptible Escherichia coli Extended-Spectrum Beta-Lactamase DRAKE NEG ug/mL: Neg Escherichia coli Gentamicin DRAKE <=1 ug/mL: Susceptible Escherichia coli Meropenem DRAKE <=0.25 ug/mL: Susceptible Escherichia coli Nitrofurantoin DRAKE <=16 ug/mL: Susceptible Escherichia coli Piperacillin-tazobactam DRAKE <=4 ug/mL: Susceptible Escherichia coli Tobramycin DRAKE <=1 ug/mL: Susceptible Escherichia coli Trimethoprim-sulfame thoxaz ole DRAKE <=20 ug/mL: Susceptible Comment: Interpretive criteria are for cefazolin when cefazolin is used for therapy of uncomplicated UTI due to E. coli, K. pneumoniae, and P. mirabilis. May also be used to predict results for the oral agents cefaclor, cefdinir, cefpodoxime, cefprozil, cefuroxime, cephalexin, and lorcarbef when used to treat uncomplicated UTI due to E. coli, K. pneumoniae, and P. mirabilis. Enterococcus faecalis Ampicillin DRAKE <=2 ug/mL: Susceptible Enterococcus faecalis Doxycycline DRAKE >=16 ug/mL: Resistant Enterococcus faecalis Levofloxacin DRAKE >=8 ug/mL: Resistant Enterococcus faecalis Linezolid DRAKE 1 ug/mL: Susceptible Enterococcus faecalis Nitrofurantoin DRAKE <=16 ug/mL: Susceptible Enterococcus faecalis Tetracycline DRAKE >=16 ug/mL: Resistant Enterococcus faecalis Vancomycin DRAKE 1 ug/mL: Susceptible Ryan He MD LAB - MICR OBIOLOGY ORDERABLES [facility] [address] [place] [address], [facility] [phone] * (ABNORMAL) URINE MICROSCOPIC ONLY (09/27/2020 8:31 AM CDT) RBC UA 3-5 None Seen, 0-2, 3-5 # /hpf 09/27/2020 9:14 AM CDT [facility] WBC UA 51-100(A) None Seen, 0-5 # /hpf 09/27/2020 9:14 AM CDT [facility] Amorphous Crystals Occasional (A) None seen /hpf 09/27/2020 9:14 AM CDT [facility] Bacteria UA 3+(A) None Seen 09/27/2020 9:14 AM CDT [facility] Squamous Epithelial Cells None Seen None Seen, 0-2, 3-5 /hpf 09/27/2020 9:14 AM CDT [facility] Mucus UA 1+ /LPF 09/27/2020 9:14 AM CDT [facility] Urine URINE SPECIMEN OBTAINED VIA [employer]WELL[employer] URINARY CATHETER / Unknown Collection / Unknown 09/27/2020 8:31 AM CDT 09/27/2020 9:00 AM CDT Narrative [facility] - 09/27/2020 9:14 AM CDT Darien Mendes BUFFERER-HOME ORGANIZER LAB - URINALY SIS ORDERABLES [facility] [address] [place] [address] * (ABNORMAL) URINALYSIS REFLEX TO MICROSCOPIC NO CULTURE (09/27/2020 8:31 AM CDT) Color UA Yellow Straw, Yellow 09/27/2020 9:08 AM CDT [facility] Clarity UA Slt Cloudy(A) Clear 09/27/2020 9:08 AM CDT [facility] Glucose UA 3+(A) Negative 09/27/2020 9:08 AM CDT [facility] Bilirubin UA Negative Negative 09/27/2020 9:08 AM CDT [facility] Ketone UA Negative Negative 09/27/2020 9:08 AM CDT [facility] Specific [place] UA 1.008 1.005 - 1.030 09/27/2020 9:08 AM CDT [facility] Blood UA Negative Negative 09/27/2020 9:08 AM CDT [facility] pH UA 6.0 5.0 - 8.0 pH 09/27/2020 9:08 AM CDT [facility] Protein UA Negative Negative 09/27/2020 9:08 AM CDT [facility] Urobilinogen UA Negative Negative mg/dL 09/27/2020 9:08 AM CDT [facility] Nitrite UA Negative Negative 09/27/2020 9:08 AM CDT [facility] Leukocyte UA 3+(A) Negative 09/27/2020 9:08 AM CDT [facility] Urine Microscopy Urine microscopy to follow 09/27/2020 9:08 AM CDT [facility] Urine URINE SPECIMEN OBTAINED VIA [employer] URINARY CATHETER / Unknown Collection / Unknown 09/27/2020 8:31 AM CDT 09/27/2020 9:00 AM CDT Narrative [facility] - 09/27/2020 9:08 AM CDT Darien Mendes APRN-HOME ORGANIZER LAB - URINALY SIS ORDERABLES Performing Organization Address [facility] Co de Phone Number [facility] [address] [place], [place] [phone] * (ABNORMAL) PTT (09/27/2020 7:33 AM CDT) [facility] PTT 83.2(H) 23.0 - 38.4 sec 09/27/2020 8:17 AM CDT [facility] Comment:This result represen ts a significant difference from this patient's most recent previous value. Clinical correlation is therefore recommended. Blood BLOOD SPECIMEN / Unknown Venipuncture / Unknown 09/27/2020 7:33 AM CDT 09/27/2020 7:39 AM CDT Narrative [facility] - 09/27/2020 8:17 AM CDT Heparin Therapeutic Range for PTT: ??71.0 - 109.0 seconds. Mahad Walsh MD LAB - COAGULATION OR DERABLES Performing Organization Address [facility] Co de Phone Number [facility] [address] [place] [phone] * (ABNORMAL) GLUCOSE - POINT OF CARE (09/27/2020 6:48 AM CDT) [facility] Glucose WB/POC 141(H) 70 - 106 mg/dL 09/27/2020 6:50 AM CDT [facility] Specimen Type Arterial/C apillary 09/27/2020 6:50 AM CDT [facility] Blood BLOOD SPECIMEN / Unknown 09/27/2020 6:48 AM CDT 09/27/2020 6:50 AM CDT Mahad Walsh MD LAB - POINT OF CARE ORDERABLES Performing Organization Address [facility] Co de Phone Number [facility] [address] [place] [phone] * (ABNORMAL) TROPONIN I (09/27/2020 4:55 AM CDT) [facility] Troponin I 0.080(HH) <0.038 ng/mL 09/27/2020 8:06 AM CDT [facility] Blood BLOOD SPECIMEN / Unknown Venipuncture / Unknown 09/27/2020 4:55 AM CDT 09/27/2020 7:39 AM CDT Sheyla Sparks BUFFERER-HOME ORGANIZER LAB - CHEMISTRY O RDERABLES [facility] [address] [place] [address] * PROCALCITONIN LEVEL (09/27/2020 4:55 AM CDT) Procalcitonin 0.07 <0.10 ng/mL 09/27/2020 8:20 AM CDT [facility] Blood BLOOD SPECIMEN / Unknown Venipuncture / Unknown 09/27/2020 4:55 AM CDT 09/27/2020 7:39 AM CDT Narrative [facility] - 09/27/2020 8:20 AM CDT The change in procalcitonin (PCT) concentration over [...] Change in Procalcitonin Calculator is available at [email or web address] ?? If clinical picture has not improved and PCT remains high, reevaluate and consider treatment failure or other causes. Sheyla Sparks APRN-HOME ORGANIZER LAB - CHEMISTRY O RDERABLES Performing Organization Address [facility] de Phone Number [facility] [address] [place] [phone] * (ABNORMAL) C-REACTIVE PROTEIN (09/27/2020 4:55 AM CDT) Pathologist [facility] C-Reactive Protein 0.97(H) <=0.50 mg/dL 09/27/2020 7:57 AM CDT [facility] Blood BLOOD SPECIMEN / Unknown Venipuncture / Unknown 09/27/2020 4:55 AM CDT 09/27/2020 7:39 AM CDT Sheyla Sparks APRN-HOME ORGANIZER LAB - CHEMISTRY O RDERABLES Performing Organization Address [facility] Phone Number [facility] [address] [place] [address] [phone] * FERRITIN (09/27/2020 4:55 AM CDT) Pathologist [facility] Ferritin 20 5 - 204 ng/mL 09/27/2020 8:20 AM CDT [facility] Blood BLOOD SPECIMEN / Unknown Venipuncture / Unknown 09/27/2020 4:55 AM CDT 09/27/2020 7:39 AM CDT Sheyla Sparks APRN-HOME ORGANIZER LAB - CHEMISTRY O RDERABLES Performing Organization Address [facility] de Phone Number [facility] [address] [place] [address] [phone] * ECHOCARDIOGRAM 2D WITH DOPPLER (09/27/2020 4:30 AM CDT) 09/27/2020 4:30 AM CDT Narrative Procedure Note Keny Jackson MD - 09/27/2020 . [facility] [facility] [address] [address] [place] [id number] Echocardiography Examination Transthoracic Name: [facility]#: MR#: [id number] Admission Number: [id number] Study Date: 09/27/2020 Study Time: 03:40 PM Date Of : 1940 Age: 79 years Height: 64 in. (162.6 cm) Weight: 175 lbs. (79.38 kg) BSA: 1.85 m2 Gender: Female Blood Pressure: 160 mmHg / 70 mmHg Heart Rate: 72 bpm Exam Details Procedure Ordered: ECHOCARDIOGRAM 2D W/DOPPLER Procedure Components: Complete 2D, M-mode, complete spectral Doppler, color Doppler, Strain Imaging Procedure Status: Routine study Image Quality: Adequate Facility Location: [facility] Indication: chf Procedure Event Coordinator Marketing And Sales: Brandi Go RDCS Ordering Provider: MAHAD WALSH Reading Physician: Keny Jackson MD Icing Coater: Agatha Negrete RDCS Reading Group: [place] [employer] Conclusions Left Ventricle: ? ? Left ventricle is normal in size. ? ? Normal global systolic left ventricular function. ? ? EF 60 %. ? ? EF range is 60 % -70 %. ? ? Left ventricle wall thickness is increased. ? ? There are no regional wall motion abnormalities. ? ? Doppler parameters are consistent with abnormal left ventricular relaxation (Grade 1 diastolic dysfunction). Follow up: Findings Patient: LOC LEON Study Date: 09/27/2020 03:40 PM Page 1 of 3 Left Ventricle: Left ventricle is normal in size. Normal global systolic left ventricular function. EF evaluated by visual assessment. EF 60 %. Left ventricle wall thickness is increased. There are no regional wall motion abnormalities. Doppler parameters are consistent with abnormal left ventricular relaxation (Grade 1 diastolic dysfunction). Right Ventricle: Mildly-moderately dilated right ventricle. Right ventricular wall thickness is normal. Right ventricular systolic function is mildly reduced. Evidence of RV strain noted . Pulmonary artery pressure normal. Left Atrium: The left atrium is normal in size. Right Atrium: The right atrium is dilated. Mitral Valve: Mitral leaflets exhibit normal cuspal separation. Mild mitral regurgitation. No mitral valve stenosis. Aortic Valve: Aortic valve is poorly visualized. ortic leaflets exhibit normal cuspal separation. No aortic valve regurgitation. There is no aortic stenosis. Tricuspid Valve: Tricuspid valve leaflets are normal. No tricuspid regurgitation. No tricuspid valve stenosis. Pulmonic Valve: Pulmonic leaflets exhibit normal cuspal separation. No pulmonic valve regurgitation is evident. There is no pulmonic valve stenosis. Aorta: The aorta is normal. No dilation of the ascending aorta. The aortic root exhibits normal size. Great Vessels: IVC: The inferior vena cava is normal in size and course. Pericardium: The pericardium is normal in appearance. No pericardial effusion. Measurements Anatomy Label Value Normal Value Aorta AoRoot, MM 3.5 cm (2.2cm - 3.7cm) Aortic Valve AV Vmean 1.11 m/s Aortic Valve AV VTI 23.41 cm Aortic Valve AV PGmax 8 mmHg Aortic Valve AV PGmean 6 mmHg Aortic Valve AV Vmax, Curve 1.46 m/s (1m/s - 1.7m/s) Aortic Valve LVOT VTI / AV VTI 0.75 Aortic Valve STACIE D (continuity eq. VTI) 1.9 cm?? Aortic Valve STACIE Index (continuity 1.08 cm??/m?? eq.Vmax) Aortic Valve AV Opening, MM 2.3 cm Aortic Valve LVOT Vmax / AV Vmax 0.8 Interventricular septum IVSd, MM 1.1 cm (0.6cm - 0.9cm) Left Atrium LADs, MM 3.7 cm (2.7cm - 3.8cm) Left Atrium LA/AO Ratio, MM 1.06 Left Ventricle LVOT Vmax 1.17 m/s (0.7m/s - 1.1m/s) Left Ventricle LVOTd 1.8 cm (1.8cm - 2cm) Left Ventricle LVOT VTI 17.45 cm (18cm - 22cm) Left Ventricle LVOT PGmax 5 mmHg Left Ventricle LVEF visual 60 % (55% - 75%) Patient: LOC LEON Study Date: 09/27/2020 03:40 PM Page 2 of 3 Left Ventricle LVDd, MM 4.2 cm (3.9cm - 5.3cm) Left Ventricle LVDs, MM 2.4 cm (2cm - 3.8cm) Left Ventricle LVPWd, MM 1.4 cm (0.6cm - 0.9cm) Left Ventricle FS, MM 42.86 % (27% - 45%) Left Ventricle IVSs, MM 1.8 cm Left Ventricle LVPWs, MM 2 cm Left Ventricle LVOT PGmean 3 mmHg Left Ventricle LVOT Vmean 0.77 m/s Left Ventricle EF lower range (%) 60 % Left Ventricle EF upper range (%) 70 % Left Ventricle Diastolic MV E Vmax 0.73 m/s Function Left Ventricle Diastolic MV A Vmax 1.51 m/s Function Left Ventricle Diastolic MV E/A 0.48 Function Left Ventricle Diastolic MV E/E' lateral 12.97 Function Left Ventricle Diastolic MV E/E' septal 16.41 (0.45 - 1.25) Function Left Ventricle Diastolic MV DT 103 ms Function Left Ventricle Diastolic MV E' septal 0.04 m/s Function Left Ventricle Diastolic MV E' lateral 0.06 m/s Function Left Ventricle Diastolic MV E/E' mean 14.6 Function Left Ventricle Diastolic MV E' mean 0.05 m/s Function Mitral Valve MVA PHT 7.3 cm?? Mitral Valve MV PHT 30 ms Mitral Valve MV Dec Churchill 7.1 m/s?? Pulmonic Valve PV PGmax 6 mmHg Pulmonic Valve PV Vmax, Caliper 1.21 m/s (0.6m/s - 0.9m/s) Right Ventricle Diastolic TR Pmax 19 mmHg Function Tricuspid Valve TR Vmax 2.21 m/s (No Signature Object) Patient: LOC LEON Study Date: 09/27/2020 03:40 PM Page 3 of 3 Sheyla Sparks BUFFERER-HOME ORGANIZER ECHO ORDERABLES [facility] * PT PTT PANEL (09/27/2020 1:15 AM CDT) PT 14.1 12.1 - 14.8 sec 09/27/2020 1:51 AM CDT [facility] INR 1.1 0.9 - 1.1 09/27/2020 1:51 AM CDT [facility] PTT 25.3 23.0 - 38.4 sec 09/27/2020 1:51 AM CDT [facility] Blood BLOOD SPECIMEN / Unknown Venipuncture / Unknown 09/27/2020 1:15 AM CDT 09/27/2020 1:22 AM CDT [facility] - 09/27/2020 1:51 AM CDT Conventional Warfarin Anticoagulant Therapy: INR Reference Range: ??2.0-3.0 Intensive Warfarin Anticoagulant Therapy: INR Reference Range: ? 2.5-3.5 Heparin Therapeutic Range for PTT: ??71.0 - 109.0 seconds. James Harrell MD LAB - COAGULATION OR DERABLES [facility] [address] [place] [address] * (ABNORMAL) CBC W AUTO DIFFERENTIAL (09/27/2020 1:15 AM CDT) WBC 17.2(H) 4.4 - 10.7 x10E9/L 09/27/2020 1:36 AM CDT [facility] WBC Corrected 09/27/2020 1:36 AM CDT [facility] RBC 4.97 3.80 - 5.20 x10E12/L 09/27/2020 1:36 AM CDT [facility] Hemoglobin 12.5 12.0 - 15.6 gm/dL 09/27/2020 1:36 AM CDT [facility] Hematocrit 39.0 35.9 - 45.5 % 09/27/2020 1:36 AM CDT [facility] MCV 78.5(L) 80.7 - 98.3 fl 09/27/2020 1:36 AM CDT [facility] MCH 25.2(L) 26.7 - 34.0 pg 09/27/2020 1:36 AM CDT [facility] MCHC 32.1 30.8 - 35.9 gm/dL 09/27/2020 1:36 AM CDT [facility] Platelet Count 289 153 - 416 x10E9/L 09/27/2020 1:36 AM [facility] RDW-CV 16.2(H) 12.1 - 14.9 % 09/27/2020 1:36 AM [facility] MPV 10.2 9.4 - 12.9 fl 09/27/2020 1:36 AM [facility] Neutrophils % 70.0 44.0 - 73.0 % 09/27/2020 1:36 AM [facility] Lymphocytes % 9.3(L) 20.0 - 43.0 % 09/27/2020 1:36 AM [facility] Monocytes % 18.4(H) 5.0 - 13.0 % 09/27/2020 1:36 AM [facility] Eosinophils % 1.0 0.0 - 6.0 % 09/27/2020 1:36 AM [facility] Basophils % 0.5 0.0 - 2.0 % 09/27/2020 1:36 AM [facility] Immature Granulocytes 0.8 0 - 1 % 09/27/2020 1:36 AM [facility] Neutrophil Absolute 12.02(H) 2.01 - 7.14 x10E9/L 09/27/2020 1:36 AM [facility] Lymphocytes Absolute 1.60 1.07 - 3.94 x10E9/L 09/27/2020 1:36 AM [facility] Monocytes Absolute 3.16(H) 0.26 - 1.07 x10E9/L 09/27/2020 1:36 AM [facility] Eosinophils Absolute 0.17 0 - 0.47 x10E9/L 09/27/2020 1:36 AM [facility] Basophils Absolute 0.09(H) 0 - 0.08 x10E9/L 09/27/2020 1:36 AM [facility] Immature Granulocytes Absolute 0.14(H) 0.00 - 0.06 x10E9/L 09/27/2020 1:36 AM [facility] nRBC Auto 0 /100 WBC 09/27/2020 1:36 AM [facility] Blood BLOOD SPECIMEN / Unknown Venipuncture / Unknown 09/27/2020 1:15 AM CDT 09/27/2020 1:22 AM CDT James Harrell MD LAB - HEMATOLOGY ORD ERABLES [facility] [address] [place] [address] * CT ANGIO CHEST PULM EMBOLISM (09/26/2020 11:14 PM CDT) Anatomical Region Laterality Modality Chest Computed Tomogra phy 09/26/2020 11:5 1 PM CDT Narrative 09/26/2020 11:57 PM CDT STUDY: CTA OF THE CHEST FOR PE EVALUATION HISTORY: Shortness of breath. Positive d-dimer. COMPARISON: CT of the chest dated 08/07/2018. TECHNIQUE: CT of the chest was performed from the lung apices to the lung bases, following intravenous administration of 62 mL of Isovue-370 contrast. ??Images were obtained at inspiration and viewed in axial (including thin sections), sagittal and coronal planes. Contrast injection rate and acquisition timing were optimized for opacification of the pulmonary arteries for evaluation of pulmonary embolism. Dose reduction techniques were utilized. Multiplanar 3D MIP images were created and reviewed. FINDINGS: There is saddle pulmonary embolism which extends to the right upper lobar and segmental arteries as well as the left upper and lower lobar and segmental arteries. There is leftward intraventricular septal bowing which may represent right heart strain. The central airways, lungs, and pleural spaces are clear. The heart is normal in size. There is no pericardial effusion. The aorta and pulmonary artery are normal in caliber. The mediastinal structures are unremarkable. The thyroid is unremarkable. The gallbladder surgically absent. The limited visualized portions of the intra-abdominal contents are unremarkable. There is no masslike lymphadenopathy. The osseous structures and the superficial soft tissues are unremarkable. IMPRESSION: 1. 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 2. ??There is leftward intraventricular septal bowing which may represent right heart strain. Critical values were discussed with and acknowledged by Dr. Harrell on 09/26/2020 at 11:55 PM. *Reading Radiologist: Anup Corbin on 09/26/2020 at 11:57 PM Procedure Note Anup Corbin MD - 09/27/2020 STUDY: CTA OF THE CHEST FOR PE EVALUATION HISTORY: Shortness of breath. Positive d-dimer. COMPARISON: CT of the chest dated 08/07/2018. TECHNIQUE: CT of the chest was performed from the lung apices to the lung bases, following intravenous administration of 62 mL of Isovue-370 contrast. Images were obtained at inspiration and viewed in axial (including thin sections), sagittal and coronal planes. Contrast injection rate and acquisition timing were optimized for opacification of the pulmonary arteries for evaluation of pulmonary embolism. Dose reduction techniques were utilized. Multiplanar 3D MIP images were created and reviewed. FINDINGS: There is saddle pulmonary embolism which extends to the right upper lobar and segmental arteries as well as the left upper and lower lobar and segmental arteries. There is leftward intraventricular septal bowing which may represent right heart strain. The central airways, lungs, and pleural spaces are clear. The heart is normal in size. There is no pericardial effusion. The aorta and pulmonary artery are normal in caliber. The mediastinal structures are unremarkable. The thyroid is unremarkable. The gallbladder surgically absent. The limited visualized portions of the intra-abdominal contents are unremarkable. There is no masslike lymphadenopathy. The osseous structures and the superficial soft tissues are unremarkable. IMPRESSION: 1. There is saddle pulmonary embolism which extends to the right upper lobar and segmental arteries as well as the left upper and lower lobar and segmental arteries. 2. There is leftward intraventricular septal bowing which may represent right heart strain. Critical values were discussed with and acknowledged by Dr. Harrell on 09/26/2020 at 11:55 PM. *Reading Radiologist: Anup Corbin on 09/26/2020 at 11:57 PM Emily Cedeno MD CT ORDERABLES * (ABNORMAL) LDH BLOOD (09/26/2020 10:57 PM CDT) LDH 317(H) 125 - 220 U/L 09/27/2020 5:12 AM CDT [facility] Blood BLOOD SPECIMEN / Unknown Venipuncture / Unknown 09/26/2020 10:57 PM CDT 09/26/2020 11:00 PM CDT Sheyla UTyrone [facility] LAB - CHEMISTRY O RDERABLES Performing Organization Address City/[facility]/ZIP Co de Phone Number [facility] [address] [place] [address] * SARS-COV-2 (COVID-19) IN HOUSE (09/26/2020 10:57 PM CDT) COVID-19 PCR Not detected Not detected 09/27/2020 7:46 AM CDT [facility] Microbiology SPECIMEN FROM NASOPHARYNGEAL STRUCTURE / Unknown Collection / Unknown 09/26/2020 10:57 PM CDT 09/26/2020 11:00 PM CDT Narrative [facility] - 09/27/2020 7:46 AM CDT This nucleic acid amplification assay performance was validated by [facility]. This test has been authorized [...] Emily Cedeno MD LAB - MICROBIOLOGY O RDERAAXEL [facility] [address] [place], [place] [id number] [place] [address] * (ABNORMAL) TROPONIN I (09/26/2020 10:57 PM CDT) [facility] Troponin I 0.079(HH) <0.038 ng/mL 09/26/2020 11:26 PM CDT [facility] Blood BLOOD SPECIMEN / Unknown Venipuncture / Unknown 09/26/2020 10:57 PM CDT 09/26/2020 11:00 PM CDT Darien Mendes APRN-HOME ORGANIZER LAB - ADAPTIVE PHYSICAL EDUCATION TEACHER RY ORDERABLES Performing Organization Address [facility] de Phone Number [facility] [address] [place] [address] * (ABNORMAL) D-DIMER (09/26/2020 7:27 PM CDT) [facility] D-Dimer 1.32(H) 0.27 - 0.50 ug/mL FEU 09/26/2020 8:01 PM CDT [facility] Blood BLOOD SPECIMEN / Unknown Venipuncture / Unknown 09/26/2020 7:27 PM CDT 09/26/2020 7:51 PM CDT Narrative [facility] - 09/26/2020 8:01 PM CDT In the absence of clinical symptoms, a value less than or equal to 0.5 mcg/mL FEU significantly decreases the probability of PE/DVT (negative predictive value >95%). 1 mcg/ml FEU = 1 Fibrinogen Equivalent Unit (approximates 0.5 mcg/mL of D- dimer). Emily Cedeno MD LAB - COAGULATION OR DERABLES Performing Organization Address [facility] de Phone Number [facility] [address] [place] [address] * (ABNORMAL) TROPONIN I (09/26/2020 7:27 PM CDT) [facility] Troponin I 0.092(HH) <0.038 ng/mL 09/26/2020 8:03 PM CDT [facility] Blood BLOOD SPECIMEN / Unknown Venipuncture / Unknown 09/26/2020 7:27 PM CDT 09/26/2020 7:33 PM CDT Dairen Mendes BUFFERER-HOME ORGANIZER LAB - ADAPTIVE PHYSICAL EDUCATION TEACHER RY ORDERABLES [facility] [address] [place] [address] * (ABNORMAL) COMPREHENSIVE METABOLIC PANEL (09/26/2020 7:27 PM CDT) Glucose 136(H) 70 - 105 mg/dL 09/26/2020 7:54 PM CDT [facility] Sodium 132(L) 136 - 145 mmol/L 09/26/2020 7:54 PM CDT [facility] Potassium 3.5 3.5 - 5.1 mmol/L 09/26/2020 7:54 PM CDT [facility] Chloride 96(L) 98 - 107 mmol/L 09/26/2020 7:54 PM CDT [facility] CO2 24 23 - 31 mmol/L 09/26/2020 7:54 PM CDT [facility] Calcium 10.6(H) 8.4 - 10.4 mg/dL 09/26/2020 7:54 PM CDT [facility] Anion Gap 12 8 - 18 mmol/L 09/26/2020 7:54 PM CDT [facility] Comment:Attention clinician: ??Reference Range change. BUN 34(H) 9.8 - 20.1 mg/dL 09/26/2020 7:54 PM CDT [facility] Creatinine 1.09 0.57 - 1.11 mg/dL 09/26/2020 7:54 PM CDT [facility] Alkaline Phosphatase 89 40 - 150 U/L 09/26/2020 7:54 PM CDT [facility] Comment:Attention clinician: ??Reference Range change. ALT 28 0 - 61 U/L 09/26/2020 7:54 PM CDT [facility] AST 24 5 - 34 U/L 09/26/2020 7:54 PM CDT [facility] Protein Total 7.5 6.4 - 8.3 gm/dL 09/26/2020 7:54 PM CDT [facility] Albumin 4.2 3.2 - 4.6 gm/dL 09/26/2020 7:54 PM CDT [facility] Bilirubin Total 0.3 0.2 - 1.2 mg/dL 09/26/2020 7:54 PM CDT [facility] Comment:Attention clinician: ??Reference Range change. eGFR by MDRD 48 mL/min/1.7 3m2 09/26/2020 7:54 PM CDT [facility] eGFR by MDRD 58 mL/min/1.7 3m2 09/26/2020 7:54 PM CDT [facility] Blood BLOOD SPECIMEN / Unknown Venipuncture / Unknown 09/26/2020 7:27 PM CDT 09/26/2020 7:33 PM CDT Darien Mendes BUFFERER-HOME ORGANIZER LAB - ADAPTIVE PHYSICAL EDUCATION TEACHER RY ORDERABLES [facility] [address] [place] [address] * (ABNORMAL) CBC W AUTO DIFFERENTIAL (09/26/2020 7:27 PM CDT) WBC 15.6(H) 4.4 - 10.7 x10E9/L 09/26/2020 7:36 PM CDT [facility] WBC Corrected 09/26/2020 7:36 PM CDT [facility] RBC 5.31(H) 3.80 - 5.20 x10E12/L 09/26/2020 7:36 PM CDT [facility] Hemoglobin 13.5 12.0 - 15.6 gm/dL 09/26/2020 7:36 PM CDT [facility] Hematocrit 42.0 35.9 - 45.5 % 09/26/2020 7:36 PM CDT [facility] MCV 79.1(L) 80.7 - 98.3 fl 09/26/2020 7:36 PM CDT [facility] MCH 25.4(L) 26.7 - 34.0 pg 09/26/2020 7:36 PM CDT [facility] MCHC 32.1 30.8 - 35.9 gm/dL 09/26/2020 7:36 PM CDT [facility] Platelet Count 323 153 - 416 x10E9/L 09/26/2020 7:36 PM CDT [facility] RDW-CV 16.4(H) 12.1 - 14.9 % 09/26/2020 7:36 PM CDT [facility] MPV 10.7 9.4 - 12.9 fl 09/26/2020 7:36 PM CDT [facility] Neutrophils % 67.2 44.0 - 73.0 % 09/26/2020 7:36 PM CDT [facility] Lymphocytes % 13.6(L) 20.0 - 43.0 % 09/26/2020 7:36 PM CDT [facility] Monocytes % 16.2(H) 5.0 - 13.0 % 09/26/2020 7:36 PM CDT [facility] Eosinophils % 1.3 0.0 - 6.0 % 09/26/2020 7:36 PM CDT [facility] Basophils % 0.8 0.0 - 2.0 % 09/26/2020 7:36 PM CDT [facility] Immature Granulocytes 0.9 0 - 1 % 09/26/2020 7:36 PM CDT [facility] Neutrophil Absolute 10.47(H) 2.01 - 7.14 x10E9/L 09/26/2020 7:36 PM CDT [facility] Lymphocytes Absolute 2.12 1.07 - 3.94 x10E9/L 09/26/2020 7:36 PM CDT [facility] Monocytes Absolute 2.53(H) 0.26 - 1.07 x10E9/L 09/26/2020 7:36 PM CDT [facility] Eosinophils Absolute 0.20 0 - 0.47 x10E9/L 09/26/2020 7:36 PM CDT [facility] Basophils Absolute 0.12(H) 0 - 0.08 x10E9/L 09/26/2020 7:36 PM CDT [facility] Immature Granulocytes Absolute 0.14(H) 0.00 - 0.06 x10E9/L 09/26/2020 7:36 PM CDT [facility] nRBC Auto 0 /100 WBC 09/26/2020 7:36 PM CDT [facility] Blood BLOOD SPECIMEN / Unknown Venipuncture / Unknown 09/26/2020 7:27 PM CDT 09/26/2020 7:33 PM CDT Darien Duran Cinthya AGUILARN[facility] LAB - HEMATOL OGY ORDERABLES Performing Organization Address City/[facility]/ZIP Co de Phone Number [facility] [address] [place] [address] * (ABNORMAL) B-TYPE NATRIURETIC PEPTIDE (09/26/2020 7:27 PM CDT) BNP 205(H) <=100 pg/mL 09/26/2020 8:00 PM CDT [facility] Blood BLOOD SPECIMEN / Unknown Venipuncture / Unknown 09/26/2020 7:27 PM CDT 09/26/2020 7:33 PM CDT Darien Mendes YAEL-[facility] LAB - ADAPTIVE PHYSICAL EDUCATION TEACHER RY ORDERABLES Performing Organization Address [facility] Co de Phone Number [facility] [address] [place] [address] * XR CHEST PA AND LATERAL (09/26/2020 4:21 PM CDT) Anatomical Region Laterality Modality Chest Radiographic [...] Julian Sheth on 09/26/2020 at 4:24 PM Darien Mendes BUFFERER-HOME ORGANIZER DIAGNOSTIC IM AGING ORDERABLES * EKG 12-LEAD (09/26/2020 2:20 PM CDT) Ventricular Rate 90 BPM [facility] Atrial Rate 90 BPM [facility] P-R Interval 164 ms [facility] QRS Duration ms 112 ms [facility] Q-T Interval ms 374 ms [facility] QTC Calculation (Bezet) 457 ms [facility] Calculated P Gardiner 37 degrees [facility] Calculated R Gardiner -78 degrees [facility] Calculated T Gardiner 32 degrees [facility] Interpretation EKG Normal sinus rhythm Left anterior fascicular block Septal infarct , age undetermined Possible Lateral infarct , age undetermined Abnormal ECG When compared with ECG of 25-AUG-2017 14:57, Significant changes have occurred Confirmed by BENTON VILLEDA, WILLIE ([id number]) on 09/26/2020 9:59:54 PM [facility] 09/26/2020 2:20 PM CDT 09/26/2020 9:59 PM CDT Emily Cedeno MD ECG ORDERABLES [facility] documented in this encounter Visit Diagnoses Diagnosis 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, unspecified vessel or lesion type- Primary SOB (shortness of breath) Shortness of breath Elevated troponin Other abnormal blood chemistry Acute congestive heart failure, unspecified heart failure type (HCC) Pulmonary embolism, other, unspecified chronicity, unspecified whether acute cor pulmonale present (HCC) Suspected COVID-19 virus infection Acute right-sided congestive heart failure (HCC) Congestive heart failure, unspecified Acute congestive heart failure (HCC) Congestive heart failure, unspecified SOB (shortness of breath) Shortness of breath Elevated troponin Other abnormal blood chemistry documented in this encounter Administered Medications Inactive Administered Medications - up to 3 most recent administrations Medication Order MAR Action Action Date Dose Rate Site 0.9% NaCl injection 0-10 mL 0-10 mL, Intracatheter, ONCE PRN, Other, Contrast flush, 1 dose, Starting on Fri10/01/20 at 0838, Until Fri10/01/20 at 1005, For administration with contrast. $ Given 10/01/2020 10:05 AM CDT 10 mL 0.9% NaCl injection 1-10 mL 1-10 mL, Intracatheter, PRN, Other, peripheral line flush, Starting on Fri09/26/20 at 1438, Until Fri10/04/20 at 1659, Flush peripheral IV catheter with 1-10 mL of normal saline before and after medications and prn to clear blood from the line or to verify patency. $ Given 09/26/2020 11:13 PM CDT 10 mL Right Arm 0.9% NaCl injection 1-10 mL 1-10 mL, Intracatheter, INTRA-PROCEDURE MULTIPLE, Starting on Fri10/02/20 at 1048, Until Fri10/03/20 at 1047, Flush for stress test $ Given 10/03/2020 9:27 AM CDT 10 mL 0.9% NaCl injection 3 mL 3 mL, Intracatheter, EVERY 8 HOURS, First dose on Fri09/26/20 at 1515, Until Discontinued, Flush peripheral IV catheter with 3 mL of normal saline every 8 hours. $ Given 10/04/2020 7:26 AM CDT 3 mL $ Given 10/03/2020 9:31 PM CDT 3 mL $ Given 10/03/2020 1:52 PM CDT 3 mL 0.9% NaCl IV Flush Bag 0-250 mL, Intracatheter, ONCE PRN, Contrast flush, 1 dose, Starting on Fri09/26/20 at 2313, Until Fri09/26/20 at 2313, For administration with contrast $ Given 09/26/2020 11:13 PM CDT 100 mL Rig ht Arm amitriptyline (Elavil) tablet 50 mg 50 mg, Oral, AT BEDTIME, First dose on Fri09/27/20 at 2100, Until Discontinued $ Given 10/03/2020 9:30 PM CDT 50 mg $ Given 10/02/2020 8:22 PM CDT 50 mg $ Given 10/01/2020 8:20 PM CDT 50 mg amoxicillin (Amoxil) capsule 500 mg 500 mg, Oral, 3 TIMES DAILY, 15 doses, First dose on Fri09/29/20 at 1515, Last dose on Fri10/04/20 at 0900, Indication for anti-infective therapy: Documented infection, Site of anti-infective therapy: Urine/Genitourinary $ Given 10/04/2020 8:35 AM CDT 500 mg $ Given 10/03/2020 9:30 PM CDT 500 mg $ Given 10/03/2020 1:52 PM CDT 500 mg anastrozole (Arimidex) tablet 1 mg 1 mg, Oral, DAILY, First dose on Fri09/27/20 at 0900, Until Discontinued, . WASTE DISPOSAL INSTRUCTIONS: Chemo Bin Disposal required. $ Given 10/04/2020 8:35 AM CDT 1 mg $ Given 10/03/2020 8:02 AM CDT 1 mg $ Given 10/02/2020 9:30 AM CDT 1 mg apixaban (Eliquis) tablet 10 mg 10 mg, Oral, 2 TIMES DAILY, 14 doses, First dose on Fri09/29/20 at 1015, Last dose on Fri10/05/20 at 2100 $ Given 10/04/2020 8:35 AM CDT 10 mg $ Given 10/03/2020 9:29 PM CDT 10 mg $ Given 10/03/2020 8:02 AM CDT 10 mg apixaban (Eliquis) tablet 5 mg 5 mg, Oral, 2 TIMES DAILY, First dose on Fri10/06/20 at 0900, Until Discontinued aspirin tablet 325 mg 325 mg, Oral, NOW, 1 dose, On Fri09/26/20 at 2045 $ Given 09/26/2020 10:51 PM CDT 325 mg atorvastatin (Lipitor) tablet 40 mg 40 mg, Oral, AT BEDTIME, First dose on Fri09/27/20 at 2100, Until Discontinued $ Given 10/03/2020 9:30 PM CDT 40 mg $ Given 10/02/2020 8:22 PM CDT 40 mg $ Given 10/01/2020 8:20 PM CDT 40 mg bromfenac Sodium (Prolensa) 0.07 % opthalmic solution 1 drop 1 drop, Right Eye, DAILY, First dose (after last reorder) on Fri09/27/20 at 1430, Until Discontinued $ Given 10/04/2020 8:40 AM CDT 1 drop $ Given 10/03/2020 8:06 AM CDT 1 drop $ Given 10/02/2020 9:38 AM CDT 1 drop calcium-vitamin D (Os-Mckenna 500 + D) 500-200 mg-unit tablet 1 tablet 1 tablet, Oral, 2 TIMES DAILY WITH MEALS, First dose on Fri09/29/20 at 0800, Until Discontinued $ Given 10/04/2020 8:35 AM CDT 1 tablet $ Given 10/03/2020 5:49 PM CDT 1 tablet $ Given 10/03/2020 8:02 AM CDT 1 tablet cefTRIAXone (Rocephin) 1,000 mg in 0.9% NaCl IV 50 mL IVPB 1,000 mg (1 g), at 100 mL/hr, Intravenous, EVERY 24 HOURS, First dose on Fri09/27/20 at 1600, Until Discontinued, Ceftriaxone can cause precipitation when administered with calcium-containing fluids, including LR. Flush lines with a compatible fluid, such as D5W or NS before and after ceftriaxone dose. Admin through separate lumens is acceptable. , Indication for anti-infective therapy: Documented infection, Site of anti-infective therapy: Urine/Genitourinary $ New Bag/Syringe 09/28/2020 3:37 PM CDT 1,000 mg 100 mL/hr $ New Bag/Syringe 09/27/2020 4:04 PM CDT 1,000 mg 100 mL /hr cyanocobalamin (Vitamin B-12) tablet 1,000 mcg 1,000 mcg, Oral, DAILY, First dose on Fri09/27/20 at 0900, Until Discontinued $ Given 10/04/2020 8:36 AM C DT 1,000 mcg $ Given 10/03/2020 8:02 AM CDT 1,000 mcg $ Given 10/02/2020 9:30 AM CDT 1,000 mcg dorzolamide (Trusopt) 2 % ophthalmic solution 1 drop 1 drop, Each Eye, 2 TIMES DAILY, First dose on Fri09/27/20 at 0900, Until Discontinued, Allow at least 10 minutes between administration of multiple opthalmic products $ Given 10/04/2020 11:28 AM CDT 1 drop $ Given 10/03/2020 9:31 PM CDT 1 drop $ Given 10/03/2020 8:06 AM CDT 1 drop fentaNYL (PF) (Sublimaze) injection 25-50 mcg 25-50 mcg, Intravenous, INTRA-PROCEDURE MULTIPLE, Starting on Fri09/28/20 at 0723, Until Fri10/03/20 at 1334, Administer every 5 minutes during procedure as needed for sedation. Dose to be determined by physician., Intra-procedure (IR) $ Given 09/28/2020 9:50 AM CDT 25 mcg $ Given 09/28/2020 9:36 AM CDT 25 mcg $ Given 09/28/2020 9:09 AM CDT 25 mcg fentaNYL (Sublimaze) injection 0.05 mg/mL ADS Med 1 dose, Starting on Fri09/28/20 at 0831, Until Fri09/28/20 at 0909, Kiara Velasco: cabinet override flecainide (Tambocor) tablet 50 mg 50 mg, Oral, 2 TIMES DAILY, First dose on Fri09/27/20 at 0900, Until Discontinued $ Given 10/04/2020 8:36 AM CDT 50 m g $ Given 10/03/2020 9:29 PM CDT 50 mg $ Given 10/03/2020 8:02 AM CDT 50 mg furosemide (Lasix) injection 40 mg 40 mg, Intravenous, ONCE, 1 dose, On Fri09/27/20 at 0445 $ Given 09/27/2020 4:58 AM CDT 40 mg heparin 100 unit/mL in dextrose 5 % infusion ADS Med 1 dose, Starting on Fri09/28/20 at 0844, Until Fri09/28/20 at 0852, Kiara Velasco: cabinet override heparin 100 unit/mL in dextrose 5 % infusion 700-2,100 Units/hr (7-21 mL/hr), Intravenous, CONTINUOUS, Starting on Fri09/27/20 at 0130, Until Fri09/29/20 at 0939, Initial rate 1200 units/hr APTT(sec) RATE CHANGE less than 61: bolus + increase by 300 units/hr, 61-70.9: bolus + increase by 150 units/hr, 71-109: NO CHANGE (therapeutic range), 109.1-119: decrease by 100 units/hr, 119.1-137: decrease by 150 units/hr, greater than 137: Hold heparin for 1 hour and reduce [...] at same rate as before the interruption. Restarted 09/29/2020 7:56 AM CDT 1,200 Units/hr 12 mL/hr $ New Bag/Syringe 09/29/2020 1:42 AM CDT 1,350 Units/hr 13 .5 mL/hr $ New Bag/Syringe 09/28/2020 8:52 AM CDT 1,350 Units/hr 13 .5 mL/hr heparin 100 units/mL bolus from bag 5,000 Units, Intravenous, BOLUS FROM BAG ONCE, 1 dose, On Fri09/27/20 at 0130 Bolus From Bag 09/27/2020 2:26 AM CDT 5,000 Units heparin 100 units/mL bolus from bag 3,000-6,000 Units, Intravenous, BOLUS FROM BAG PRN, heparin bolus dose, Starting on Fri09/27/20 at 0058, Until Fri09/29/20 at 0939, APTT(sec) Bolus less than 61: 6000 unit bolus + rate Increase, 61-70.9: 3000 unit bolus + rate Increase, 71-109: NO CHANGE (therapeutic range), 109.1-119: No Bolus + rate Decrease, 119.1-137: No Bolus + rate Decrease, greater than 137: No Bolus + hold infusion and rate Decrease Draw aPTT 6 hours after infusion is [...] at same rate as before the interruption. Bolus From Bag 09/27/2020 1:47 PM CDT 3,000 Units insulin aspart (NovoLOG) pen 0-6 Units 0-6 Units, Subcutaneous, 3 TIMES DAILY WITH MEALS, First dose on Fri09/27/20 at 0800, Until Discontinued, Low Dose: Correction [...] give at the same time. $ Given 10/02/2020 6:05 PM CDT 2 Units Abd Left Lower Quadrant $ Given 09/29/2020 4:25 PM CDT 2 Units Le ft Arm $ Given 09/29/2020 1:15 PM CDT 2 Units Ab dominal Tissue insulin glargine (Lantus) pen 8 Units 8 Units, Subcutaneous, AT BEDTIME, First dose on Fri09/27/20 at 2100, Until Discontinued, Consider calling physician for *dose reduction* if patient is made NPO or if TPN/PPN/tube feeding is held. DO NOT HOLD even if patient is NPO. . WASTE DISPOSAL INSTRUCTIONS: Black Bin Disposal required. $ Given 10/03/2020 9:31 PM CDT 8 Units Abd Left Lower Quadr ant $ Given 10/02/2020 8:25 PM CDT 8 Units Ab d Left Lower Quadrant $ Given 10/01/2020 8:21 PM CDT 8 Units Ab dominal Tissue iopamidol (Isovue 370) 76 % contrast 0-150 mL 0-150 mL, Intravenous, CONTRAST ONCE, Starting on 09/26/20 at 2003, Until Fri09/28/20 at 2002 $ Given - Contrast 09/26/2020 11:03 PM CDT 62 mL iopamidol (Isovue 370) 76 % contrast Intravenous, INTRA-PROCEDURE MULTIPLE, Starting on Magali 09/28/20 at 0723, Until Fri10/03/20 at 1334, Intra/Post-procedure $ Given - Contrast 09/28/2020 10:23 AM CDT 10 mL iopamidol (Isovue 370) 76 % contrast Intravenous, CONTRAST ONCE, Starting on Fri10/01/20 at 0838, Until Fri10/03/20 at 0837 $ Given - Contrast 10/01/2020 10:05 AM CDT 100 mL iron dextran complex (Infed) 25 mg in 0.9% NaCl IV 50.5 mL infusion 25 mg, at 202 mL/hr, Intravenous, ONCE, 1 dose, On Fri09/29/20 at 0615, Refrigerate. * * Test dose - Please call pharmacy at [phone], if patient tolerates this well * * $ New Bag/Syringe 09/29/2020 6:16 AM CDT 25 mg 202 mL/hr iron dextran complex (Infed) 475 mg in 0.9% NaCl IV 259.5 mL IVPB 475 mg, at 259.5 mL/hr, Intravenous, ONCE, 1 dose, On Fri09/29/20 at 0715, Refrigerate. $ New Bag/Syringe 09/29/2020 7:45 AM CDT 475 mg 259.5 mL/hr lactulose (Chronulac) solution 20 g 20 g, Oral, ONCE, 1 dose, On Fri10/01/20 at 1800 $ Given 10/01/2020 5:48 PM CDT 20 g lactulose (Chronulac) solution 30 g 30 g, Oral, ONCE, 1 dose, On Fri10/03/20 at 1145 $ Given 10/03/2020 12:28 PM CDT 30 g levothyroxine (Synthroid) tablet 50 mcg 50 mcg, Oral, DAILY BEFORE BREAKFAST, First dose on Fri09/27/20 at 0700, Until Discontinued, Take in the morning on an empty stomach. Do not give within 4 hours of antacids, iron or calcium supplements. $ Given 10/04/2020 7:26 AM CDT 50 mcg $ Given 10/03/2020 6:42 AM CDT 50 mcg $ Given 10/02/2020 9:30 AM CDT 50 mcg lidocaine (Xylocaine PF) 1% injection ADS Med 1 dose, Starting on Fri09/28/20 at 0831, Until Fri09/28/20 at 0901, Kiara Velasco: cabinet override lidocaine PF (Xylocaine Mpf) 1 % injection Infiltration, INTRA-PROCEDURE MULTIPLE, Starting on Fri09/28/20 at 0723, Until Fri10/03/20 at 1334, Intra-procedure (IR) $ Given 09/28/2020 9:01 AM CDT 300 mg magnesium hydroxide (Milk Of Magnesia) suspension 45 mL 45 mL, Oral, ONCE, 1 dose, On 10/01/20 at 1200, Shake well before using. $ Given 10/01/2020 11:53 AM CDT 45 mL midazolam (Versed) 1 mg/mL injection ADS Med 1 dose, Starting on Fri09/28/20 at 0832, Until Fri09/28/20 at 0909, Kiara Velasco: cabinet override midazolam (Versed) injection 0.5-2 mg 0.5-2 mg, Intravenous, INTRA-PROCEDURE MULTIPLE, Starting on Fri09/28/20 at 0723, Until Fri10/03/20 at 1334, Administer every 5 minutes during procedure as needed for sedation. Dose to be determined by physician., Intra-procedure (IR) $ Given 09/28/2020 9:50 AM CDT 0.5 mg $ Given 09/28/2020 9:36 AM CDT 0.5 mg $ Given 09/28/2020 9:09 AM CDT 0.5 mg pantoprazole EC (Protonix) tablet 40 mg 40 mg, Oral, AT BEDTIME, First dose on Fri09/27/20 at 2100, Until Discontinued, Do not crush, chew, or cut in half. $ Given 10/03/2020 9:30 PM CDT 40 mg $ Given 10/02/2020 8:22 PM CDT 40 mg $ Given 10/01/2020 8:20 PM CDT 40 mg perflutren (Definity) injection ADS Med 1 dose, Starting on 09/30/20 at 0945, Until 09/30/20 at 1027, Created by cabinet override Shake well before using. $ Given 09/30/2020 10:27 A M CDT 0.26 mL polyethylene glycol 3350 (Miralax) packet 17 g 17 g, Oral, DAILY, First dose on Fri09/29/20 at 1515, Until Discontinued, Mix in 8 ounces of water, juice, soda, coffee or tea prior to administration $ Given 10/04/2020 8:36 AM CDT 17 g $ Given 10/03/2020 10:54 AM CDT 17 g $ Given 10/02/2020 9:39 AM CDT 17 g potassium chloride (Klor-Con) packet 20 mEq 20 mEq, Oral, DAILY WITH BREAKFAST, First dose on Fri09/27/20 at 0800, Until Discontinued $ Given 09/27/2020 8:33 AM CDT 20 mEq potassium chloride ER (Klor-Con M) tablet 40 mEq 40 mEq, Oral, DAILY WITH BREAKFAST, First dose on Fri09/29/20 at 1400, Until Discontinued, Do not crush or chew. $ Given 10/04/2020 8:36 AM CDT 40 mEq $ Given 10/03/2020 8:02 AM CDT 40 mEq $ Given 10/02/2020 9:31 AM CDT 40 mEq regadenoson (Lexiscan) injection 0.4 mg 0.4 mg, Intravenous, ONCE CARDIOLOGY, 1 dose, On Fri10/02/20 at 1100, For stress test. $ Given 10/03/2020 9:27 AM CDT 0.4 mg senna-docusate (Senokot-S) tablet 1 tablet 1 tablet, Oral, 2 TIMES DAILY, First dose on Fri09/29/20 at 2100, Until Discontinued $ Given 10/04/2020 8:35 AM CDT 1 tablet $ Given 10/03/2020 9:30 PM CDT 1 tablet $ Given 10/03/2020 8:02 AM CDT 1 tablet spironolactone (Aldactone) tablet 25 mg 25 mg, Oral, DAILY, First dose on Fri09/27/20 at 0900, Until Discontinued $ Given 09/27/2020 8:33 AM CDT 25 mg verapamil CR (Isoptin-SR) tablet 120 mg 120 mg, Oral, AT BEDTIME, First dose on Fri09/27/20 at 2100, Until Discontinued, Do not crush or chew. $ Given 10/03/2020 9:29 PM CDT 120 mg $ Given 10/02/2020 8:22 PM CDT 120 mg $ Given 10/01/2020 8:20 PM CDT 120 mg vitamin D3-cholecalciferol (Cholecalciferol) 25 MCG (1000 UNITS) tablet 1,000 Units 1,000 Units, Oral, DAILY, First dose on Fri09/27/20 at 0900, Until Discontinued, 1000 units = 25 mcg $ Given 10/04/2020 8:36 AM CDT 1,000 Unit s $ Given 10/03/2020 8:02 AM CDT 1,000 Units $ Given 10/02/2020 9:30 AM CDT 1,000 Units documented in this encounter Active and Recently Administered Medications Times are shown in CDT. Scheduled Medication Order 10/02/2020 10/03/2020 10/04/2020 0.9% NaCl injection 1-10 mL () 1-10 mL, Intracatheter, INTRA-PROCEDURE MULTIPLE, Starting on Fri10/02/20 at 1048, Until Fri10/03/20 at 1047, Flush for stress test 0927 ($ Given - Provider: Valery Shore RN) 0.9% NaCl injection 3 mL(Linked Group 1) 3 mL, Intracatheter, EVERY 8 HOURS, First dose on Fri09/26/20 at 1515, Until Discontinued, Flush peripheral IV catheter with 3 mL of normal saline every 8 hours. 0821 (Not Administered - Provider: Bonny Moran RN - Reason: See Comments)1514 ($ Given - Provider: Bonny Moran RN)2022 ($ Given - Provider: Christine Ba RN) 0642 ($ Given - Provider: Christine Ba RN)1352 ($ Given - Provider: Bonny Moran RN)2131 ($ Given - Provider: Christine Ba RN) 0726 ($ Given - Provider: Christine Ba RN)1400 (Due) amitriptyline (Elavil) tablet 50 mg 50 mg, Oral, AT BEDTIME, First dose on Fri09/27/20 at 2100, Until Discontinued 2021 ($ Given - Provider: Christine Ba RN) 2130 ($ Given - Provider: Christine Ba RN) amoxicillin (Amoxil) capsule 500 mg (COMPLETED) 500 mg, Oral, 3 TIMES DAILY, 15 doses, First dose on Fri09/29/20 at 1515, Last dose on Fri10/04/20 at 0900, Indication for anti-infective therapy: Documented infection, Site of anti-infective therapy: Urine/Genitourinary 0931 ($ Given - Provider: Bonny Moran RN)1514 ($ Given - Provider: Bonny Moran RN)2021 ($ Given - Provider: Christine Ba RN) 08 ($ Given - Provider: Bonny Moran RN)135 ($ Given - Provider: Bonny Moran RN)213 ($ Given - Provider: Christine Ba RN) 0835 ($ Given - Provider: Mine Cleaning RN) anastrozole (Arimidex) tablet 1 mg 1 mg, Oral, DAILY, First dose on Fri09/27/20 at 0900, Until Discontinued, . WASTE DISPOSAL INSTRUCTIONS: Chemo Bin Disposal required. 0930 ($ Given - Provider: Bonny Moran RN) 0802 ($ Given - Provider: Bonny Moran RN) 0835 ($ Given - Provider: Mine Cleaning, DES) apixaban (Eliquis) tablet 10 mg(Linked Group 2) 10 mg, Oral, 2 TIMES DAILY, 14 doses, First dose on Fri09/29/20 at 1015, Last dose on Fri10/05/20 at 2100 0931 ($ Given - Provider: Bonny Moran RN)2021 ($ Given - Provider: Christine Ba RN) 08 ($ Given - Provider: Bonny Moran RN)2128 ($ Given - Provider: Christine Ba RN) 0835 ($ Given - Provider: Mine Cleaning RN) apixaban (Eliquis) tablet 5 mg(Linked Group 2) 5 mg, Oral, 2 TIMES DAILY, First dose on Fri10/06/20 at 0900, Until Discontinued atorvastatin (Lipitor) tablet 40 mg 40 mg, Oral, AT BEDTIME, First dose on Fri09/27/20 at 2100, Until Discontinued 2021 ($ Given - Provider: Christine Ba RN) 213 ($ Given - Provider: Christine Ba, DES) bromfenac Sodium (Prolensa) 0.07 % opthalmic solution 1 drop 1 drop, Right Eye, DAILY, First dose (after last reorder) on Fri09/27/20 at 1430, Until Discontinued 0938 ($ Given - Provider: Bonny Moran RN) 08 ($ Given - Provider: Bonny Moran RN) 0840 ($ Given - Provider: Mine Cleaning, DES) calcium-vitamin D (Os-Mckenna 500 + D) 500-200 mg-unit tablet 1 tablet 1 tablet, Oral, 2 TIMES DAILY WITH MEALS, First dose on Fri09/29/20 at 0800, Until Discontinued 0930 ($ Given - Provider: Bonny Moran RN)1805 ($ Given - Provider: Bonny Moran RN) 0802 ($ Given - Provider: Bonny Moran RN)1749 ($ Given - Provider: Bonny Moran RN) 0835 ($ Given - Provider: Mien Cleaning RN) cyanocobalamin (Vitamin B-12) tablet 1,000 mcg 1,000 mcg, Oral, DAILY, First dose on Fri09/27/20 at 0900, Until Discontinued 0930 ($ Given - Provider: Bonny Moran RN) 08 ($ Given - Provider: Bonny Moran RN) 0836 ($ Given - Provider: Mine Cleaning, DES) dorzolamide (Trusopt) 2 % ophthalmic solution 1 drop 1 drop, Each Eye, 2 TIMES DAILY, First dose on Fri09/27/20 at 0900, Until Discontinued, Allow at least 10 minutes between administration of multiple opthalmic products 0939 ($ Given - Provider: Bonny Moran RN)2023 ($ Given - Provider: Christine Ba RN) 08 ($ Given - Provider: Bonny Moran RN)213 ($ Given - Provider: Christine Ba, DES) 1128 ($ Given - Provider: Mine Cleaning, DES) flecainide (Tambocor) tablet 50 mg 50 mg, Oral, 2 TIMES DAILY, First dose on Fri09/27/20 at 0900, Until Discontinued 929 ($ Given - Provider: Bonny Moran RN)2021 ($ Given - Provider: Christine Ba RN) 801 ($ Given - Provider: Bonny Moran RN)2128 ($ Given - Provider: Christine Ba RN) 0836 ($ Given - Provider: Mine Cleaning, DES) insulin aspart (NovoLOG) pen 0-6 Units 0-6 Units, Subcutaneous, 3 TIMES DAILY WITH MEALS, First dose on Fri09/27/20 at 0800, Until Discontinued, Low Dose: Correction [...] combine and give at the same time. 0918 (Not Administered - Provider: Bonny Moran RN - Reason: Per Administration Instructions)1221 (Not Administered - Provider: Bonny Moran RN - Reason: Per Administration Instructions)1805 ($ Given - Provider: Bonny Moran RN) 0749 (Not Administered - Provider: Bonny Moran RN - Reason: Per Administration Instructions)1215 (Not Administered - Provider: Bonny Moran RN - Reason: Per Administration Instructions)1706 (Not Administered - Provider: Bonny Moran RN - Reason: Per Administration Instructions) 0833 (Not Administered - Provider: Mine Cleaning RN - Reason: Per Administration Instructions)1200 (Due) insulin glargine (Lantus) pen 8 Units 8 Units, Subcutaneous, AT BEDTIME, First dose on Fri09/27/20 at 2100, Until Discontinued, Consider calling physician for *dose reduction* if patient is made NPO or if TPN/PPN/tube feeding is held. DO NOT HOLD even if patient is NPO. . WASTE DISPOSAL INSTRUCTIONS: Black Bin Disposal required. 2024 ($ Given - Provider: Christine Ba RN) 2130 ($ Given - Provider: Christine Ba RN) lactulose (Chronulac) solution 30 g (COMPLETED) 30 g, Oral, ONCE, 1 dose, On Fri10/03/20 at 1145 1228 ($ Given - Provider: Bonny Moran RN) levothyroxine (Synthroid) tablet 50 mcg 50 mcg, Oral, DAILY BEFORE BREAKFAST, First dose on Fri09/27/20 at 0700, Until Discontinued, Take in the morning on an empty stomach. Do not give within 4 hours of antacids, iron or calcium supplements. 0930 ($ Given - Provider: Bonny Moran RN) 0642 ($ Given - Provider: Christine Ba RN) 0726 ($ Given - Provider: Christine Ba RN) pantoprazole EC (Protonix) tablet 40 mg 40 mg, Oral, AT BEDTIME, First dose on Fri09/27/20 at 2100, Until Discontinued, Do not crush, chew, or cut in half. 2021 ($ Given - Provider: Christine Ba RN) 2129 ($ Given - Provider: Christine Ba RN) polyethylene glycol 3350 (Miralax) packet 17 g 17 g, Oral, DAILY, First dose on Fri09/29/20 at 1515, Until Discontinued, Mix in 8 ounces of water, juice, soda, coffee or tea prior to administration 0939 ($ Given - Provider: Bonny Moran RN) 1054 ($ Given - Provider: Bonny Moran RN) 0836 ($ Given - Provider: Mine Cleaning, DES) potassium chloride ER (Klor-Con M) tablet 40 mEq (CANCELED) 40 mEq, Oral, DAILY WITH BREAKFAST, First dose on Fri09/29/20 at 1400, Until Discontinued, Do not crush or chew. 0931 ($ Given - Provider: Bonny Moran RN) 0802 ($ Given - Provider: Bonny Moran RN) 0836 ($ Given - Provider: Mine Cleaning, DES) regadenoson (Lexiscan) injection 0.4 mg (COMPLETED) 0.4 mg, Intravenous, ONCE CARDIOLOGY, 1 dose, On Fri10/02/20 at 1100, For stress test. 926 ($ Given - Provider: Valery Shore RN) senna-docusate (Senokot-S) tablet 1 tablet 1 tablet, Oral, 2 TIMES DAILY, First dose on Fri09/29/20 at 2100, Until Discontinued 0930 ($ Given - Provider: Bonny Moran RN)2021 ($ Given - Provider: Christine Ba RN) 801 ($ Given - Provider: Bonny Moran RN)2129 ($ Given - Provider: Christine Ba RN) 0835 ($ Given - Provider: Mine Cleaning, DES) verapamil CR (Isoptin-SR) tablet 120 mg 120 mg, Oral, AT BEDTIME, First dose on Fri09/27/20 at 2100, Until Discontinued, Do not crush or chew. 2021 ($ Given - Provider: Christine Ba RN) 2128 ($ Given - Provider: Christine Ba RN) vitamin D3-cholecalciferol (Cholecalciferol) 25 MCG (1000 UNITS) tablet 1,000 Units 1,000 Units, Oral, DAILY, First dose on Fri09/27/20 at 0900, Until Discontinued, 1000 units = 25 mcg 929 ($ Given - Provider: Bonny Moran RN) 801 ($ Given - Provider: Bonny Moran RN) 0836 ($ Given - Provider: Mine Cleaning, DES) PRN Medication Order 10/02/2020 10/03/2020 10/04/2020 0.9% NaCl injection 1-10 mL(Linked Group 1) 1-10 mL, Intracatheter, PRN, Other, peripheral line flush, Starting on Fri09/26/20 at 1438, Until Fri10/04/20 at 1659, Flush peripheral IV catheter with 1-10 mL of normal saline before and after medications and prn to clear blood from the line or to verify patency. albuterol HFA (Proventil;Ventolin;Proair) 108 (90 Base) MCG/ACT inhaler 2 puff 2 puff, Inhalation, EVERY 4 HOURS PRN, Shortness of Breath, Wheezing, Starting on Fri09/27/20 at 0421, Until Fri10/04/20 at 1658, Shake well before using. WASTE DISPOSAL INSTRUCTION: Send to Pharmacy for Disposal. dextrose IV 12.5-25 g 12.5-25 g, Intravenous, PRN, Bedside Glucose less than 70 mg/dL -If NOT able to eat and/or NPO and with IV Access, Starting on Fri09/27/20 at 0417, Until Fri10/04/20 at 1658, If NOT able to eat and/or NPO and with IV Access: For Bedside Glucose 54-69 mg/dL give 12.5 g (25 mL) D50W IVP STAT For Bedside Glucose LESS than 54 mg/dl verify with a second Bedside Glucose (from a different site) and give 25 g (50 mL) D50W IVP STAT Re-check and Re-treat blood glucose EVERY 10-25 minutes until blood glucose GREATER than or equal to 80 mg/dl. NOTIFY PROVIDER OF HYPOGLYCEMIC EVENT. glucagon (Glucagen) injection 1 mg 1 mg, Intramuscular, PRN, Bedside Glucose less than 70 mg/dL - If NOT able to eat and/or NPO and withOUT IV Access, Starting on Fri09/27/20 at 0417, Until Fri10/04/20 at 1658, If NOT able to eat and/or NPO [...] does not have swallowing difficulties, Starting on Fri09/27/20 at 0417, Until Fri10/04/20 at 1658, If able to eat and can swallow [...] pt is symptomatic, do not delay treatment Consider confirming the glucose with a STAT laboratory test Give [...] does not have swallowing difficulties, Starting on Fri09/27/20 at 0417, Until Fri10/04/20 at 1659, If able to eat and is better [...] pt is symptomatic, do not delay treatment Consider confirming the glucose with a STAT laboratory test Give [...] EVENT. 1 tube delivers 15 grams dextrose/carbohydrates Linked Groups Order Group 1: SALINE LOCK, INSERT AND MAINTAIN (CANCELED) Routine, CONTINUOUS, Starting on Fri09/26/20 at 1445, Until Specified, New collection And 0.9% NaCl injection 3 mLJump to med 3 mL, Intracatheter, EVERY 8 HOURS, First dose on Fri09/26/20 at 1515, Until Discontinued, Flush peripheral IV catheter with 3 mL of normal saline every 8 hours. And 0.9% NaCl injection 1-10 mLJump to med 1-10 mL, Intracatheter, PRN, Other, peripheral line flush, Starting on Fri09/26/20 at 1438, Until Fri10/04/20 at 1659, Flush peripheral IV catheter with 1-10 mL of normal saline before and after medications and prn to clear blood from the line or to verify patency. Group 2: apixaban (Eliquis) tablet 10 mgJump to med 10 mg, Oral, 2 TIMES DAILY, 14 doses, First dose on Fri09/29/20 at 1015, Last dose on Fri10/05/20 at 2100 Followed by apixaban (Eliquis) tablet 5 mgJump to med 5 mg, Oral, 2 TIMES DAILY, First dose on Fri10/06/20 at 0900, Until Discontinued documented in this encounter Additional Health Concerns Infection Onset Date Last Indicated Resolved Time COVID-19 Under Investigation 09/26/2020 09/26/2020 09/27/2020 7:46 AM CDT documented as of this encounter Care Teams [employer] Relationship Specialty [place] [id number] [facility] [address] [place] [address] PCP - General Internal Medicine 03/31/18 05/30/22 Asha Narvaez APRN-HOME ORGANIZER [address] [facility] [place] [address] [place] [address] PCP - Attributed-MSSP 08/17/20 10/16/20 Etienne Florez MD Orthopedic Surgery 12/09/14 [place] [id number] [facility] [address] [place] [id number] Oncology 09/15/17 [place] [address] [facility] [address] [place] [id number] Neurology 06/26/18 [place] [address] [facility] [address] [place] [phone] Cardiovascular Disease 06/26/18 [place] [id number] [address] Pulmonary Disease 06/26/18 Yuliya Ibarra MD [address] [facility] [address] [place] [phone] Endocrinology 06/26/18 Phuong Callejas DPM [address] [place], [place] [id number] Podiatry 06/26/18 Sy Barrientos MD [address] [place] [address] [place] [address] Ophthalmology 06/26/18 [place] [address] [place] [address] Pulmonary Disease 06/26/18 Rico Gasca MD [address] [employer] [facility] [address] [place] [address] Urology 06/26/18 Elle Landaverde MD [address] [employer] [facility] [address] [place], [place] [address] Vascular Surgery 06/26/18 Kirk Truong MD [address] [place] [address] [address] [place] [address] Gastroenterology 06/26/18 [place] [address] [place] [address] General Surgery 06/26/18 documented as of this encounter
--- OUTSIDE RECORDS SUMMARY | 2024-05-26 12:37 | XMS_ITS | Encounter Summary ---
Author Organization [facility] Address [address] [place] [address] Care Team Providers Care Specialty Trimmer Name Role Phone Etienne Florez MD Unavailable [phone] Enrique Gonzalez MD Unavailable [phone] Theresa Camargo MD Primary Care Provider Nelson Ross MD Unavailable Laz Valencia MD Unavailable Russell Moran MD Unavailable Yuliya Ibarra MD Unavailable [phone] Phuong Callejas DPM Unavailable Sy Barrientos MD Unavailable Russell Moran MD Unavailable Rico Gasca MD Unavailable Elle Landaverde MD Unavailable [phone] Kirk Truong MD Unavailable [phone] Shira Love DO Unavailable BriceAsha Heidy [facility] Unavailable [phone] Reason for Visit * Reason Comments Follow-up Encounter Details Date Type Department Care Team (Late st Contact Info) Description 06/09/2020 10:45 AM STRAW HAT WASHER OPERATOR Office Visit [facility] Family Medicine [address] [facility] [address] [place] [address] [place] [address] [facility] [address] [place] [address] Type 2 diabetes mellitus without complication, with long-term current use of insulin (HCC) (Primary Dx); Primary hypothyroidism; Mixed hyperlipidemia; Atrial fibrillation, unspecified type (HCC); History of TIA (transient ischemic attack); Essential hypertension; Coronary artery disease involving diomede heart without angina pectoris, unspecified vessel or lesion type; Uncomplicated asthma, unspecified asthma severity, unspecified whether persistent (HCC); Osteopenia of multiple sites; Partial seizure (HCC); Need for zoster vaccine; Vitamin D deficiency; Hyperparathyroidism (HCC); Malignant neoplasm of upper-outer quadrant of left breast in female, estrogen receptor positive (HCC); Walker as ambulation aid Social History Tobacco Use Types Packs/Day Years [...] have Coronavirus / COVID-19? No / Unsure 05/30/2020 12:11 PM STRAW HAT WASHER OPERATOR documented as of this encounter Functional Status Functional Status Response Date of Assess ment Is person deaf or have serious hearing difficult y? No 12/28/2016 Is person blind or have serious difficulty seein g? No 12/28/2016 Does person have serious dif ficulty walking/climbing stairs? Yes 12/28/2016 Does person have difficulty dressing/bathing? No 12/28/2016 Does person have difficulty doing errands alone? Yes 12/28/2016 Cognitive Status Response Date of Assessm ent Does person have difficulty concentrating/remembering/making decisions? No 12/28/2016 documented as of this encounter Progress Notes * Theresa Camargo MD - 06/09/2020 10:22 AM CST SUBJECTIVE: Perla Leon is a 79 year old female with Chief Complaint Patient [...] T1cN0(i-)M0, stage IA. ER pos 97% (strong), NJ pos 23% (moderate), Her-2 neg (1+ on [...] Not on file Occupational History ??? 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 Smoking status: Never Smoker ??? Smokeless tobacco: Never Used Substance and Sexual Activity ??? Alcohol use: [...] ??? anastrozole (ARIMIDEX) 1 MG tablet ??? aspirin (ASPIRIN) 81 MG tablet ??? BD PEN NEEDLE HAYDEN U/F 32G X 4 MM MISC ??? canagliflozin (INVOKANA) 100 MG tablet ??? clopidogrel (PLAVIX) 75 MG tablet ??? Cranberry-Vitamin C (AZO CRANBERRY URINARY TRACT) 250-60 MG ??? Cyanocobalamin (B-12) 1000 MCG TBCR ??? dorzolamide (TRUSOPT) 2 % ophthalmic solution ??? esomeprazole (NEXIUM) 40 MG capsule ??? FLECAINIDE ACETATE PO ??? FREESTYLE LITE STRIPS test strip ??? furosemide (LASIX) 40 MG tablet ??? glimepiride (AMARYL) 1 MG tablet ??? hydroxypropyl methylcellulose 0.3% (SYSTANE OVERNIGHT THERAPY) 0.3 % ophthalmic gel ??? LANTUS SOLOSTAR pen ??? latanoprost (XALATAN) 0.005 % ophthalmic solution ??? levothyroxine (SYNTHROID) 25 MCG tablet ??? levothyroxine (SYNTHROID) 50 MCG tablet ??? menthol-zinc oxide (CALMOSEPTINE) 0.44-20.6 % ointment ??? metOLazone (ZAROXOLYN) 2.5 MG tablet ??? multivitamin with iron (ONE A DAY WITH IRON) tablet ??? nystatin (MYCOSTATIN) 618895 UNIT/GM powder ??? nystatin-triamcinolone (MYCOLOG) 301463-2.1 UNIT/GM-% cream ??? polyethyl glycol-propyl glycol (SYSTANE) 0.4-0.3 % ophth solution ??? polyethylene glycol 3350 (MIRALAX) packet ??? potassium chloride ER (KLOR-CON) 20 MEQ tablet ??? PROLENSA 0.07 % opthalmic solution ??? rosuvastatin (CRESTOR) 10 MG tablet ??? SITagliptin (JANUVIA) 100 MG tablet ??? spironolactone (ALDACTONE) 25 MG tablet ??? verapamil SR 24hr (VERELAN) 120 MG capsule ??? vitamin D3 (CHOLECALCIFEROL) 25 MCG (1000 UNITS) tablet ??? Water For Irrigation, Sterile No current facility-administered medications for this visit. HPI: here for follow up on: Multiple medical issues including coronary artery disease, chronic constipation, history of TIA, iron deficiency anemia, hypertrophy, hypothyroidism, elevated cholesterol,AFib. She is here with daughter and her . She is wheelchair-bound but uses a walker at home.No chest pain and no shortness of breath. She is following Endocrine routinely for her blood sugar and they are currently monitoring her labs and adjusting her medication. Sleeping ok. Appetite good. No chest pain. No SOB/wheezing. No abdominal pain. No nvdc. No edema. Needs to refill meds and update labs. Patient Care Team: Theresa Camargo MD as PCP - General (Internal Medicine) Asha Narvaez APRN-SARA as PCP - Attributed-[facility] Etienne Florez MD (Orthopedic Surgery) Enrique Gonzalez MD (Oncology) Nelson Ross MD (Neurology) Laz Valencia MD (Cardiovascular Disease) Wm Krishan Moran MD (Pulmonary Disease) Yuliya Ibarra MD (Endocrinology) Phuong Callejas DPM (Podiatry) Sy Barrientos MD (Ophthalmology) Wm Krishan Moran MD (Pulmonary Disease) Rico Gasca MD (Urology) Elle Landaverde MD (Vascular Surgery) Kirk Truong MD (Gastroenterology) Shira Love DO (General Surgery) Review of Systems: per HPI OBJECTIVE: Wt Readings from Last 3 Encounters: 06/09/20 80.6 kg (177 lb 11.2 oz) 03/30/20 78.9 kg (174 lb) 02/11/20 81.2 kg (179 lb) Temp Readings from Last 3 Encounters: 06/09/20 97 ??F (36.1 ??C) 06/09/20 97 ??F (36.1 ??C) (Temporal) 03/30/20 97.5 ??F (36.4 ??C) (Temporal) BP Readings from Last 3 Encounters: 06/09/20 124/45 06/09/20 124/45 03/30/20 118/76 Pulse Readings from Last 3 Encounters: 06/09/20 79 06/09/20 79 03/30/20 74 There is no height or weight on file to calculate BMI. General: alert, cooperative, no distress, oriented to person, place, and time, well appearing. Appears stated age. ENT: ENT exam normal, no neck nodes or sinus tenderness and bilateral TM normal without fluid or infection NECK: range of motion is intact, no masses, thyroid not enlarged, no adenopathy, supple Heart: normal rate, regular rhythm, normal S1, S2, no murmurs, rubs, clicks or gallops Lungs: clear to auscultation bilaterally Extremities: no clubbing, cyanosis or edema Neuro: negative findings: alert, oriented x3 speech normal in context and clarity memory intact grossly cranial nerves II-XII intact Recent Labs Component Name 06/09/20 0839 12/30/19 1111 11/26/19 0945 03/05/19 1300 03/05/19 1300 11/06/18 1043 11/06/18 1043 SODIUM 137 134* 139 - 141 - 144 POTASSIUM 4.3 3.5 3.7 - 3.1* - 3.6 CHLORIDE 100 92* 100 - 102 - 105 CO2 28 31 29 - 28 - 30 BUN 26* 32* 26* - 14 - 18 CREATININE 1.12* 1.05* 1.00 - 0.81 - 0.66 GLUCOSE 220* 191* 142* - 195* - 82 CALCIUM 10.5* 11.3* 11.3* - 10.4* - 10.5* ALBUMIN - - 4.0 - 3.9 - 3.9 ALKPHOS - - 93 - 95 - 75 ALT - - 22 - 20 - 16 AST - - 17 - 17 - 15 TBIL - - 0.3 - 0.3 - 0.2 TPROT - - 7.0 - 6.2* - 6.1* EGFR 47 50* 53 - >60 - >60 - = values in this interval not displayed. Recent Labs Component Name 03/05/19 1301 WBC 7.0 RBC 4.69 HGB 12.6 HCT 41.0 MCV 87.4 MCH 26.9 MCHC 30.7* PLTCOUNT 319 Recent Labs Component Name 11/26/19 0855 06/12/17 0823 12/30/16 0430 CHOL 124 113 89 TRIG 183* 148 114 HDL 32* 35* 34* LDLCALC 55 55 32 Recent Labs Component Name 03/05/19 1302 11/06/18 1043 08/26/17 0413 HGBA1C 6.4* 5.3 7.0* Recent Labs Component Name 05/05/20 1353 11/26/19 0855 11/06/18 1043 TSH 2.74 2.812 2.9182 Recent Labs Component Name 11/26/19 0855 03/05/19 1302 11/06/18 1043 [id number] 28.5* 28.4* 28.5* There is an A1c in her chart from April of HEALTH MAINTENANCE: Health Maintenance Topic Date Due ??? DIABETES-HGB A1C 09/04/2019 ??? ZOSTER VACCINE (2 of 3) 09/07/2020 (Originally 10/19/2007) ??? DIABETES-EYE EXAM 12/29/2020 ??? MAMMOGRAM 02/22/2021 ??? HCC (Chart Reviewer Use Only) 03/22/2021 ??? ANNUAL MEDICARE WELLNESS VISIT 06/09/2021 ??? DEPRESSION SCREENING 06/09/2021 ??? DIABETES-FOOT EXAM WITH MONOFILAMENT 06/09/2021 ??? DTAP/TDAP/TD VACCINES (4 - Td) 08/29/2025 ??? COLON CA SCREENING 02/17/2029 ??? PNEUMOCOCCAL VACCINE 65+ Completed ??? INFLUENZA VACCINE Completed ??? BONE DENSITY TESTING Completed ??? PNEUMOCOCCAL VACCINE Aged Out ??? HIB VACCINE Aged Out ??? MENINGOCOCCAL VACCINE Aged Out ASSESSMENT: ICD-10-CM 1. Type 2 diabetes mellitus without complication, with long-term current use of insulin E11.9 COMPREHENSIVE METABOLIC PANEL Z79.4 ALBUMIN/CREAT RATIO URINE RANDOM PANEL HEMOGLOBIN A1C HM RISK ADJUSTED VISIT 2. Primary hypothyroidism E03.9 TSH HM RISK ADJUSTED VISIT 3. Mixed hyperlipidemia E78.2 COMPREHENSIVE METABOLIC PANEL LIPID PROFILE W TCHOL/HDL HM RISK ADJUSTED VISIT 4. Atrial fibrillation, unspecified type I48.91 COMPREHENSIVE METABOLIC PANEL CBC WITH DIFFERENTIAL HM RISK ADJUSTED VISIT 5. History of TIA (transient ischemic attack) Z86.73 COMPREHENSIVE METABOLIC PANEL CBC WITH DIFFERENTIAL HM RISK ADJUSTED VISIT 6. Essential hypertension I10 COMPREHENSIVE METABOLIC PANEL HM RISK ADJUSTED VISIT 7. Coronary artery disease involving diomede heart without angina pectoris, unspecified vessel or lesion type I25.10 HM RISK ADJUSTED VISIT 8. Uncomplicated asthma, unspecified asthma severity, unspecified whether persistent J45.909 HM RISK ADJUSTED VISIT 9. Osteopenia of multiple sites M85.89 HM RISK ADJUSTED VISIT 10. Partial seizure R56.9 COMPREHENSIVE METABOLIC PANEL CBC WITH DIFFERENTIAL HM RISK ADJUSTED VISIT 11. Need for zoster vaccine Z23 HM RISK ADJUSTED VISIT 12. Vitamin D deficiency E55.9 VITAMIN D 25-HYDROXY HM RISK ADJUSTED VISIT 13. Hyperparathyroidism E21.3 HM RISK ADJUSTED VISIT 14. Malignant neoplasm of upper-outer quadrant of left breast in female, estrogen receptor [id number] HM RISK ADJUSTED VISIT Z17.0 15. Walker as ambulation aid Z99.89 PLAN: Orders Placed This Encounter ??? COMPREHENSIVE METABOLIC PANEL Order Specific Question: Release to patient Answer: Immediate ??? CBC WITH DIFFERENTIAL Order Specific Question: Release to patient Answer: Immediate ??? LIPID PROFILE W TCHOL/HDL Order Specific Question: Release to patient Answer: Immediate ??? ALBUMIN/CREAT RATIO URINE RANDOM PANEL Order Specific Question: Release to patient Answer: Immediate ??? TSH Order Specific Question: Release to patient Answer: Immediate ??? VITAMIN D 25-HYDROXY Order Specific Question: Release to patient Answer: Immediate ??? HEMOGLOBIN A1C Order Specific Question: Release to patient Answer: Immediate Update routine Blood work. She should continue to keep up with her specialist visits. She is in a wheelchair for ease of visit but does use a walker at home. She has a handicap placard. CONTINUE SAME CURRENT MEDICATIONS. UPDATE ROUTINE BLOOD WORK. W HAT WASHER OPERATOR * Jina Haskins - 06/09/2020 10:21 AM CST W HAT WASHER OPERATOR documented in this encounter Plan of Treatment Scheduled Orders Name Type Priority Associated Diagnoses Orde r Schedule COMPREHENSIVE METABOLIC PANEL Lab Routine Type 2 diabetes mellitus without complication, with long-term current use of insulin (HCC) Mixed hyperlipidemia Atrial fibrillation, unspecified type (HCC) History of TIA (transient ischemic attack) Essential hypertension Partial seizure (HCC) Ordered: 06/09/2020 CBC WITH DIFFERENTIAL Lab Routine Atrial fibrillation, unspecified type (HCC) History of TIA (transient ischemic attack) Partial seizure (HCC) Ordered: 06/09/2020 LIPID PROFILE W TCHOL/HDL Lab Routine Mixed hyperlipidemia Ordered: 06/09/2020 ALBUMIN/CREAT RATIO URINE RANDOM PANEL Lab Routine Type 2 diabetes mellitus without complication, with long-term current use of insulin (HCC) Ordered: 06/09/2020 TSH Lab Routine Primary hypothyroidism Ordered: 06/09/2020 VITAMIN D 25-HYDROXY Lab Routine Vitamin D deficiency Ordered: 06/09/2020 HEMOGLOBIN A1C Lab Routine Type 2 diabetes mellitus without complication, with long-term current use of insulin (HCC) Ordered: 06/09/2020 documented as of this encounter Goals Goal Patient Goal Type Associated Problems Recent Progress Patient-Stated? 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 8:09 AM STRAW HAT WASHER OPERATOR) No Alisa Jaramillo HEMOGLOBIN A1C < 7.0 Result Component 5.4( 12:00 AM CDT) No Alisa Jaramillo documented as of this encounter Visit Diagnoses Diagnosis Type 2 diabetes mellitus without complication, with long-term current use of insulin (HCC)- Primary Primary hypothyroidism Unspecified hypothyroidism Mixed hyperlipidemia Atrial fibrillation, unspecified type (HCC) History of TIA (transient ischemic attack) Transient ischemic attack (TIA), and cerebral infarction without residual deficits Essential hypertension Coronary artery disease involving diomede heart without angina pectoris, unspecified vessel or lesion type Uncomplicated asthma, unspecified asthma severity, unspecified whether persistent (HCC) Osteopenia of multiple sites Partial seizure (HCC) Other convulsions Need for zoster vaccine Need for prophylactic vaccination and inoculation against varicella Vitamin D deficiency Hyperparathyroidism (HCC) Malignant neoplasm of upper-outer quadrant of left breast in female, estrogen receptor positive (HCC) Walker as ambulation aid Reserved for inherently not codable concepts WITHOUT codable children documented in this encounter Care Teams Specialty Trimmer Relationship Specialty [place] [address] [facility] [address] [place] [address] PCP - General Internal Medicine 03/31/18 05/30/22 Asha Narvaez, LIDDER-RESTORATIVE CARE TECHNICIAN [address] [facility] [address] [place] [address] PCP - Attributed-MSSP 02/17/20 06/18/20 Etienne Florez MD Orthopedic Surgery 12/09/14 [place] [address] [facility] [address] [place] [address] Oncology 09/15/17 [place] [address] [facility] [address] [place] [address] Neurology 06/26/18 [place] [address] [facility] [address] [place] [address] Cardiovascular Disease 06/26/18 [place] [address] [address] Pulmonary Disease 06/26/18 Yuliya Ibarra MD [address] [facility] [address] [place] [address] Endocrinology 06/26/18 Phuong Callejas DPM [address] [place] [address] Podiatry 06/26/18 Sy Barrientos MD [address] [place] [address] [place] [address] Ophthalmology 06/26/18 [place] [address] [address] Pulmonary Disease 06/26/18 Rico Gasca MD [address] [phone] Urology 06/26/18 Elle Landaverde MD [address] [address] Vascular Surgery 06/26/18 Kirk Truong MD [address] [address] Gastroenterology 06/26/18 [place] [address] [place] [address] [place] [id number] General Surgery 06/26/18 documented as of this encounter
--- OUTSIDE RECORDS SUMMARY | 2024-05-26 12:37 | XMS_ITS | Encounter Summary ---
Author Organization [facility] Address [address] [place] [address] Care Team Providers Care Ict Programmer Name Role Phone Etienne Florez MD Unavailable Enrique Gonzalez MD Unavailable [phone] Theresa Camargo MD Primary Care Provider Nelson Ross MD Unavailable Laz Valencia MD Unavailable Russell Moran MD Unavailable [phone] Yuliya Ibarra MD Unavailable [phone] Phuong Callejas DPM Unavailable [phone] Sy Barrientos MD Unavailable Russell Moran MD Unavailable [phone] Rico Gasca MD Unavailable [phone] Elle Landaverde MD Unavailable [phone] Kirk Truong MD Unavailable [phone] Shira Love DO Unavailable [phone] Asha Narvaez HAND FUR CLEANER-[facility] Unavailable [phone] Reason for Visit * Reason Onset Date Comments Outreach Preventive Care 03/21/2020 Encounter Details Date Type Department Care Team (Late st Contact Info) Description 03/21/2020 Patient Outreach [facility] - Care Coordination [facility] [place] [address] Alley Paul MA Outreach Preventive Care Social History Tobacco Use [...] have Coronavirus / COVID-19? No / Unsure 03/22/2020 3:20 PM RAIL CAR WELDER documented as of this encounter Functional Status [...] No 12/28/2016 documented as of this encounter Miscellaneous Notes * Telephone Encounter - Alley Paul MA - 03/22/2020 3:33 PM RAIL CAR WELDER Chart analysis for Annual Care Gap Review. Health Maintenance reviewed for open care gaps and closure process initiated. Health Maintenance Due Topic Date Due ??? ZOSTER VACCINE (2 of 3) 10/19/2007 ??? DIABETES-FOOT EXAM WITH MONOFILAMENT 03/19/2019 ??? DIABETES-HGB A1C 09/04/2019 ??? ANNUAL MEDICARE WELLNESS VISIT 01/05/2020 MyChart Enrollment: Already Active Patient was notified of the following health maintenance care gaps, and instructed on the importance of routine wellness testing. ??? Diabetic Measures o Eye Exam: results are current and available in the chart - Exam Location: N/A o A1C: HM remains due o Urine Microalbumin: HM remains due ??? Diagnostic Testing o Mammogram: results are current and available in the chart o Colon CA Screen: results are current and available in the chart ??? Immunization o Flu: results are current and available in the chart ??? AWV: appointment scheduled Alley Paul MA 03/22/2020 3:33 PM CAR WELDER documented in this encounter Plan of Treatment Not on file documented as of this encounter Goals Goal Patient Goal Type Associated Problems Recent Progress Patient-Stated? 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 8:09 AM RAIL CAR WELDER) No Alisa Jaramillo HEMOGLOBIN A1C < 7.0 Result Component 5.4( 12:00 AM CDT) No Alisa Jaramillo documented as of this encounter Visit Diagnoses Not on filedocumented in this encounter Care Teams Ict Programmer Relationship Specialty Start [place] [address] [facility] [address] [place] [address] PCP - General Internal Medicine 03/31/18 05/30/22 Asha Narvaez, HAND FUR CLEANER-STAMPING PRESS OPERATOR [address] [facility] [address] [place], [place] [id number] PCP - Attributed-MSSP 02/17/20 06/18/20 Etienne Florez MD Orthopedic Surgery 12/09/14 [place] [address] [phone] Oncology 09/15/17 [place] [address] [phone] Neurology 06/26/18 [place] [address] [facility] [address] [place] [address] Cardiovascular Disease 06/26/18 [place] [address] [id number] Pulmonary Disease 06/26/18 Yuliya Ibarra MD [address] [facility] [facility] [address] [place] [phone] Endocrinology 06/26/18 Phuong Callejas DPM [address] [place] [address] Podiatry 06/26/18 Sy Barrientos MD [address] [place] [address] [place] [address] Ophthalmology 06/26/18 [place] [address] [address] Pulmonary Disease 06/26/18 Rico Gasca MD [address] [facility] [address] [place] [address] Urology 06/26/18 Elle Landaverde MD [address] [facility] [address] [place] [address] Vascular Surgery 06/26/18 Kirk Truong MD [address] [facility] [address] [place] [address] Gastroenterology 06/26/18 [place] [address] [place] [address] General Surgery 06/26/18 documented as of this encounter
--- OUTSIDE RECORDS SUMMARY | 2024-05-26 12:37 | XMS_ITS | Encounter Summary ---
Author Organization [facility] Address [address] [place] [address] Care Team Providers Care Safety Trainer Name Role Phone Etienne Florez MD Unavailable Enrique Gonzalez MD Unavailable [phone] Theresa Camargo MD Primary Care Provider Nelson Ross MD Unavailable [phone] Laz Valencia MD Unavailable Russell Moran MD Unavailable [phone] Yuliya Ibarra MD Unavailable Phuong Callejas DPM Unavailable [phone] Sy Barrientos MD Unavailable Russell Moran MD Unavailable Rico Gasca MD Unavailable [phone] Elle Landaverde MD Unavailable Kirk Truong MD Unavailable [phone] Shira Love DO Unavailable [phone] Asha Narvaez [facility] Unavailable [phone] Reason for Visit * Reason Comments Follow-up Encounter Details Date Type Department Care Team (Late st Contact Info) Description 06/09/2020 9:00 AM BANQUET ATTENDANT Office Visit [facility] [address] [address] [place] [address] [address] Malignant neoplasm of upper-outer quadrant of left breast in female, estrogen receptor positive (HCC) (Primary Dx); Osteopenia of multiple sites; Use of aromatase inhibitors Social History Tobacco Use Types Packs/Day Years [...] COVID-19? No / Unsure 05/30/2020 12:11 PM BANQUET ATTENDANT documented as of this encounter Last Filed Vital Signs Vital Sign Reading Time Taken Comments Blood Pressure 124/45 06/09/2020 8:57 AM BANQUET ATTENDANT Pulse 79 06/09/2020 8:57 AM BANQUET ATTENDANT Temperature 36.1 ??C (97 ??F) 06/09/2020 8:57 AM BANQUET ATTENDANT Respiratory Rate 16 06/09/2020 8:57 AM BANQUET ATTENDANT Oxygen Saturation 96% 06/09/2020 8:57 AM BANQUET ATTENDANT Inhaled Oxygen Concentration - - Weight 80.6 kg (177 lb 11.2 oz) 06/09/2020 8:57 AM BANQUET ATTENDANT Height 165.1 cm (5' 5 ) 06/09/2020 8:57 AM BANQUET ATTENDANT Body Mass Index 29.57 06/09/2020 8:57 AM BANQUET ATTENDANT documented in this encounter Functional Status Functional [...] No 12/28/2016 documented as of this encounter Patient Instructions * Patient Instructions* Enrique Gonzalez MD - 06/09/2020 9:15 AM BANQUET ATTENDANT Prolia shot RTC in 6 months with BMP STAT UET ATTENDANT documented in this encounter Progress Notes * Enrique Gonzalez MD - 06/09/2020 9:09 AM CST Oncology Clinic Follow Up Note Date of Follow Up: 06/09/2020 Patient Name:??Perla Leon??is a 79??y.o. Female ??= 1940 ? Surgeon:?Dr Shira Love? PCP: Jarrell Garrison MD ? 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 Arimidex 1 mg po daily started on 09/17/17 Prolia 60 mg SQ Q 6 months started??on 01/14/18 ? HPI: Perlamainor Leon??is an 79??y.o.?? woman with history of TIA, atrial fib, DM, heart murmur, partal seizures, famlial spastic paraparesis and obesity, diagnosed with left breast cancer in August 2017 and has been on Arimidex came today [...] 01/14/18. She had another DEXA scan at [facility] on 06/06/2020 and showed still osteopenia. Cross referenced seeing the T-score on current bone density to the 1 from October 2017, she appears to have stable bone density. Will continue on Prolia. Her serum calcium level is elevated (Ca= 10.5 mg/dl) due to hyperparathyroidism. She also has hypothyroidism and is following with an director pharmaceutical at [facility]. No other new complaints. Medical History Past Medical History: Diagnosis Date [...] HPI. ECOG 3 PS Physical Exam BP 124/45 (BP SITE: LEFT ARM, BP POSITION: SITTING, BP CUFF SIZE: 11) Pulse 79 Temp 97 ??F (36.1 ??C) (Temporal) Resp 16 Ht 5' 5 (1.651 m) Wt 177 lb 11.2 oz (80.6 kg) SpO2 96% BMI 29.57 kg/m2 GENERAL: Wheel chair bound, in no [...] continue on clinical exam and self-breast exam 2. Osteopenia: on Prolia Q 6 months. Her serum calcium is 10.5 today which is elevated. Her prior PTH was also elevated consistent is hyperparathyroidism. She is advised to hold calcium supplement and is following was director pharmaceutical at [facility]. Continue on Prolia. DEXA scan at [facility] on 06/06/2020 showed stable osteopenia 3. Family history of breast cancer : genetic testing sent in the past but results not available formy review ? 4. Famlial Spastic Paraparesis f/u with Dr Ross ?? RTC in 6 months for follow up with MADDISON Gonzalez MD 06/09/2020 9:30 AM UET ATTENDANT documented in this encounter Plan of Treatment Not on file documented as of this encounter Goals Goal Patient Goal Type Associated Problems Recent Progress Patient-Stated? 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 in female, estrogen receptor positive (HCC)- Primary Osteopenia of multiple sites Use of aromatase inhibitors documented in this encounter Care Teams Safety Trainer Relationship Specialty [place] [address] [facility] [address] [place] [address] PCP - General Internal Medicine 03/31/18 05/30/22 Asha Narvaez, NEUROPHYSIOLOGIST-DEFECT REPAIRER GLASSWARE [address] [facility] [address] [place] [address] PCP - Attributed-MSSP 02/17/20 06/18/20 Etienne Florez MD Orthopedic Surgery 12/09/14 [place] [address] [address] Oncology 09/15/17 [place] [address] [address] Neurology 06/26/18 [place] [address] [address] Cardiovascular Disease 06/26/18 Russell Moran MD [address] [place] [id number] Pulmonary Disease 06/26/18 Yuliya Ibarra MD [address] [place] [phone] Endocrinology 06/26/18 Phuong Callejas DPM [address] [place], [place] [address] Podiatry 06/26/18 Sy Barrientos MD [address] [place] [address] [place] [address] Ophthalmology 06/26/18 Russell Moran MD [address] [place], [place] [phone] Pulmonary Disease 06/26/18 Rico Gasca MD [address] [place] [address] Urology 06/26/18 Elel Landaverde MD [address] [place] [address] Vascular Surgery 06/26/18 Kirk Truong MD [address] [place] [address] Gastroenterology 06/26/18 [place] [address] [address] General Surgery 06/26/18 documented as of this encounter
--- OUTSIDE RECORDS SUMMARY | 2024-05-26 12:37 | XMS_ITS | Encounter Summary ---
Author Organization [facility] Address [address] [facility] [place] [address] Care Team Providers Care Drapery Rod Assembler Name Role Phone Etienne Florez MD Unavailable Enrique Gonzalez MD Unavailable Theresa Camargo MD Primary Care Provider Nelson Ross MD Unavailable [phone] Laz Valencia MD Unavailable Russell Moran MD Unavailable Yuliya Ibarra MD Unavailable Phuong Callejas DPM Unavailable Sy Barrientos MD Unavailable [phone] Russell Moran MD Unavailable Rico Gasca MD Unavailable Elle Landaverde MD Unavailable Kirk Truong MD Unavailable [phone] Shira Love DO Unavailable [phone] Asha [facility]vaez [facility] Unavailable [phone] Reason for Visit * Reason Onset Date Comments Late Cancel 05/22/2020 Encounter Details Date Type Department Care Team (Late st Contact Info) Description 05/22/2020 Telephone [facility] - Family Medicine [address] [facility] [address] [place] [address] [place] [address] [facility] [address] [place] [address] Late Cancel Social History Tobacco Use Types Packs/Day Years [...] have Coronavirus / COVID-19? No / Unsure 05/22/2020 8:21 AM INGREDIENT MIXER documented as of this encounter Functional Status [...] encounter Miscellaneous Notes * Telephone Encounter - Brandi Donis - 05/22/2020 8:40 AM INGREDIENT MIXER Thiago Edward called and canceled their same day appointment Appointment Date: 05/22/20 Appointment Time: 9:30/10 If rescheduled: Visit date not found Provider: /Bonny EDIENT MIXER documented in this encounter Plan of Treatment Not on file documented as of this encounter Goals Goal Patient Goal Type Associated Problems Recent Progress Patient-Stated? 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 8:09 AM INGREDIENT MIXER) No Alisa Jaramillo HEMOGLOBIN A1C < 7.0 Result Component 5.4( 12:00 AM CDT) No Alisa Jaramillo documented as of this encounter Visit Diagnoses Not on filedocumented in this encounter Care Teams Drapery Rod Assembler Relationship Specialty Start [place] [address] [facility] [address] [place] [address] PCP - General Internal Medicine 03/31/18 05/30/22 Asha Narvaez, RELAY CHECKER-PUMP AND STILL OPERATOR [address] [facility] [address] [place] [address] PCP - Attributed-MSSP 02/17/20 06/18/20 Etienne Florez MD Orthopedic Surgery 12/09/14 [place] [address] [address] Oncology 09/15/17 [place] [address] [address] Neurology 06/26/18 [place] [address] [facility] [address] [place] [address] Cardiovascular Disease 06/26/18 [place] [address] [id number] Pulmonary Disease 06/26/18 Yuliya Ibarra MD [address] [place] [address] Endocrinology 06/26/18 Phuong Callejas DPM [address] [place], [place] [address] Podiatry 06/26/18 Sy Barrientos MD [address] [place] [address] Ophthalmology 06/26/18 [place] [address] [address] Pulmonary Disease 06/26/18 Rico Gasca MD [address] [facility] [address] [place] [address] Urology 06/26/18 Elle Landaverde MD [address] [facility] [address] [place] [address] Vascular Surgery 06/26/18 Kirk Truong MD [address] [facility] [address] [place] [address] Gastroenterology 06/26/18 [place] [address] [place] [address] General Surgery 06/26/18 documented as of this encounter
--- OUTSIDE RECORDS SUMMARY | 2024-05-26 12:37 | XMS_ITS | Encounter Summary ---
Author Organization [facility] Address [address] [facility] [place] [address] Care Team Providers Care Tire Specialist Name Role Phone Etienne Florez MD Unavailable Enrique Gonzalez MD Unavailable [phone] Theresa Camargo MD Primary Care Provider Nelson Ross MD Unavailable [phone] Laz Valencia MD Unavailable Russell Moran MD Unavailable [phone] Yuliya Ibarra MD Unavailable Phuong Callejas DPM Unavailable [phone] Sy Barrientos MD Unavailable [phone] Russell Moran MD Unavailable [phone] Rico Gasca MD Unavailable Elle Landaverde MD Unavailable [phone] Kirk Truong MD Unavailable [phone] Shira Love DO Unavailable [phone] Theresa Camargo MD Unavailable [phone] Reason for Visit * Reason Comments Refill Request Encounter Details Date Type Department Care Team (Late st Contact Info) Description 06/27/2020 Refill [facility] [address] [facility] [address] [place] [address] [place] [address] [facility] [address] [place] [address] Refill Request Social History Tobacco [...] have Coronavirus / COVID-19? No / Unsure 06/13/2020 11:38 AM ACCIDENT REPORT CLERK documented as of this encounter Functional Status [...] Telephone Encounter - Aleisha Malhotra MA - 06/28/2020 9:06 AM ACCIDENT REPORT CLERK last filled 06/04/19 last ov 06/09/20 next ov 10/23/20 message routed to Bonny DENT REPORT CLERK documented in this encounter Plan of Treatment Not on file documented as of this encounter Goals Goal Patient Goal Type Associated Problems Recent Progress Patient-Stated? 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 8:09 AM ACCIDENT REPORT CLERK) No Alisa Jaramillo HEMOGLOBIN A1C < 7.0 Result Component 5.4( 12:00 AM CDT) No Alisa Jaramillo documented as of this encounter Visit Diagnoses Not on filedocumented in this encounter Care Teams Tire Specialist Relationship Specialty Start [place] [address] [facility] [address] [place] [address] PCP - General Internal Medicine 03/31/18 05/30/22 [place] [address] [facility] [address] [place] [address] PCP - Attributed-MSSP 06/19/20 08/16/20 Etienne Florez MD Orthopedic Surgery 12/09/14 [place] [address] [facility] [address] [place] [address] Oncology 09/15/17 [place] [address] [facility] [address] [place] [address] Neurology 06/26/18 [place] [address] [phone] Cardiovascular Disease 06/26/18 [place] [address] [address] Pulmonary Disease 06/26/18 Yuliya Ibarra MD [address] [place] [address] Endocrinology 06/26/18 Phuong Callejas DPM [address] [place], [place] [address] Podiatry 06/26/18 Sy Barrientos MD [address] [place] [address] [place] [address] Ophthalmology 06/26/18 [place] [address] [phone] Pulmonary Disease 06/26/18 Rico Gasca MD [address] [facility] [address] [place] [address] Urology 06/26/18 Elle Landaverde MD [address] [facility] [address] [place] [address] Vascular Surgery 06/26/18 Kirk Truong MD [address] [facility] [address] [place] [address] Gastroenterology 06/26/18 [place] [address] [place] [address] General Surgery 06/26/18 documented as of this encounter
--- OUTSIDE RECORDS SUMMARY | 2024-05-26 12:37 | XMS_ITS | Encounter Summary ---
Author Organization [facility] Address [address] [facility] [place] [address] Care Team Providers Care Processor Helper Name Role Phone Etienne Florez MD Unavailable Enrique Gonzalez MD Unavailable [phone] Theresa Camargo MD Primary Care Provider Nelson Ross MD Unavailable Laz Valencia MD Unavailable Russell Moran MD Unavailable Yuliya Ibarra MD Unavailable Phuong Callejas DPM Unavailable Sy Barrientos MD Unavailable Russell Moran MD Unavailable [phone] Rico Gasca MD Unavailable [phone] Elle Landaverde MD Unavailable Kirk Truong MD Unavailable [phone] Shira Love DO Unavailable [phone] Asha Narvaez [facility] Unavailable [phone] Reason for Visit * Reason Onset Date Comments Future Appointment 06/02/2020 Encounter Details Date Type Department Care Team (Late st Contact Info) Description 06/02/2020 Telephone [facility] [address] [address] [place] [address] [facility] [address] [place] [address] Future Appointment Social History Tobacco Use Types Packs/Day [...] COVID-19? No / Unsure 05/30/2020 12:11 PM MAMMOGRAPHY TECHNOLOGIST documented as of this encounter Functional Status [...] encounter Miscellaneous Notes * Telephone Encounter - Bertha Wharton RN - 06/02/2020 10:06 AM CST Attempted to contact pt to reschedule appointment. No answer, left message to contact office. OGRAPHY TECHNOLOGIST * Telephone Encounter - Christi Beth - 06/02/2020 8:53 AM CST Please reschedule lab office visit and infusion room appointment. She does not want to drive in snow/weather conditions OGRAPHY TECHNOLOGIST documented in this encounter Plan of Treatment Not on file documented as of this encounter Goals Goal Patient Goal Type Associated Problems Recent Progress Patient-Stated? 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 8:09 AM MAMMOGRAPHY TECHNOLOGIST) No Alisa Jaramillo HEMOGLOBIN A1C < 7.0 Result Component 5.4( 12:00 AM CDT) No Alisa Jaramillo documented as of this encounter Visit Diagnoses Not on filedocumented in this encounter Care Teams Processor Helper Relationship Specialty Start [place] [address] [email or web address] [address] [place] [address] PCP - General Internal Medicine 03/31/18 05/30/22 Asha Narvaez, AFTERSCHOOL BABYSITTER-NURSE EXECUTIVE [address] [facility] [address] [place] [address] PCP - Attributed-MSS 02/17/20 06/18/20 Etienne Florez MD Orthopedic Surgery 12/09/14 [place] [address] [facility] [address] [place] [address] Oncology 09/15/17 [place] [address] [employer] [address] [phone] Neurology 06/26/18 [place] [address] [facility] [address] [place] [address] Cardiovascular Disease 06/26/18 [place] [address] [address] Pulmonary Disease 06/26/18 Yuliya Ibarra MD [address] [facility] [address] [place] [address] Endocrinology 06/26/18 Phuong Callejas DPM [address] [place], [place] [address] Podiatry 06/26/18 Sy Barrientos MD [address] [place] [address] [address] Ophthalmology 06/26/18 [place] [address] [phone] Pulmonary Disease 06/26/18 Rico Gasca MD [address] [facility] [address] [address] Urology 06/26/18 Elle Landaverde MD [address] [facility] [address], [place] [address] Vascular Surgery 06/26/18 Kirk Truong MD [address] [facility] [address] [place] [address] Gastroenterology 06/26/18 [place] [address] [address] [address] General Surgery 06/26/18 documented as of this encounter
--- OUTSIDE RECORDS SUMMARY | 2024-05-26 12:37 | XMS_ITS | Encounter Summary ---
Author Organization [facility] Address [address] [facility] [place] [address] Care Team Providers Care Slurry Blender Name Role Phone Etienne Florez MD Unavailable Enrique Gonzalez MD Unavailable [phone] Theresa Camargo MD Primary Care Provider [phone] Nelson Ross MD Unavailable [phone] Laz Valencia MD Unavailable Russell Moran MD Unavailable Yuliya Ibarra MD Unavailable Phuong Callejas DPM Unavailable yS Barrientos MD Unavailable Russell Moran MD Unavailable [phone] Rico Gasca MD Unavailable [phone] Elle Landaverde MD Unavailable Kirk Truong MD Unavailable Shira Love DO Unavailable [phone] Asha Narvaez APRN-[facility] Unavailable [phone] Encounter Details Date Type Department Care Team (Latest Contact Info) Description 03/22/2020 Travel Social History Tobacco Use Types Packs/Day [...] COVID-19? No / Unsure 03/22/2020 3:20 PM CLINICAL INFORMATICS STRATEGIST documented as of this encounter Functional Status [...] No 12/28/2016 documented as of this encounter Plan of Treatment Not on file documented as of this encounter Goals Goal Patient Goal Type Associated Problems Recent Progress Patient-Stated? 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 8:09 AM CLINICAL INFORMATICS STRATEGIST) No Alisa Jaramillo HEMOGLOBIN A1C < 7.0 Result Component 5.4( 12:00 AM CDT) No Alisa Jaramillo documented as of this encounter Visit Diagnoses Not on filedocumented in this encounter Care Teams Slurry Blender Relationship Specialty Start [place] [address] [address] PCP - General Internal Medicine 03/31/18 05/30/22 Asha Narvaez APRN-[employer] [address] [facility] [address] [place] [address] PCP - Attributed-MSSP 02/17/20 06/18/20 Etienne Florez MD Orthopedic Surgery 12/09/14 [place] [address] [facility] 100 [place] [address] Oncology 09/15/17 [place] [address] [address] Neurology 06/26/18 [place] [address] [facility] [address] [place] [address] Cardiovascular Disease 06/26/18 [place] [address] [facility] [address] [place] [address] Pulmonary Disease 06/26/18 Yuliya Ibarra MD [address] [facility] [address] [place] [address] Endocrinology 06/26/18 Phuong Callejas DPM [address] [place] [address] Podiatry 06/26/18 Sy Barrientos MD [address] [place] [address] Ophthalmology 06/26/18 [place] [address] [address] Pulmonary Disease 06/26/18 Rico Gasca MD [address] [facility] [address] [place] [address] Urology 06/26/18 Elle Landaverde MD [address] [facility] [address] [place] [address] Vascular Surgery 06/26/18 Kirk Truong MD [address] [facility] [address], [place] [address] Gastroenterology 06/26/18 [place] [address] [place] [address] General Surgery 06/26/18 documented as of this encounter
--- OUTSIDE RECORDS SUMMARY | 2024-05-26 12:37 | XMS_ITS | Encounter Summary ---
Author Organization [facility] Address [address] [facility] [place] [address] Care Team Providers Care Gasket Supervisor Name Role Phone Etienne Florez MD Unavailable Enrique Gonzalez MD Unavailable [phone] Theresa Camargo MD Primary Care Provider [phone] Nelson Ross MD Unavailable Laz Valencia MD Unavailable Russell Moran MD Unavailable Yuliya Ibarra MD Unavailable [phone] Phuong Callejas DPM Unavailable [phone] Sy Barrientos MD Unavailable [phone] Russell Moran MD Unavailable [phone] Rico Gasca MD Unavailable [phone] Elle Landaverde MD Unavailable Kirk Truong MD Unavailable Shira Love DO Unavailable Theresa Camargo MD Unavailable [phone] Encounter Details Date Type Department Care Team (Latest Contact Info) Description 08/09/2020 Travel Social History Tobacco Use Types Packs/Day [...] have Coronavirus / COVID-19? No / Unsure 08/09/2020 9:20 AM CDT documented as of this encounter [...] < 140/90 Blood Pressure 127/52(2022 8:09 AM METAL ALLOY SCIENTIST) No Alisa Jaramillo HEMOGLOBIN A1C < 7.0 Result Component 5.4( 12:00 AM CDT) No Alisa Jaramillo documented as of this encounter Visit Diagnoses Not on filedocumented in this encounter Care Teams Gasket Supervisor Relationship Specialty [place] [address] [address] PCP - General Internal Medicine 03/31/18 05/30/22 [place] [address] [facility] [address] [place] [address] PCP - Attributed-MSSP 06/19/20 08/16/20 Etienne Florez MD Orthopedic Surgery 12/09/14 [place] [address] [facility] 100 [place] [address] Oncology 09/15/17 [place] [address] [facility] [address] [place] [address] Neurology 06/26/18 [place] [address] [facility] [address] [place] [address] Cardiovascular Disease 06/26/18 [place] [address] [id number] Pulmonary Disease 06/26/18 Yuliya Ibarra MD [address] [facility] [address] [place] [address] Endocrinology 06/26/18 Phuong Callejas DPM [address] [place] [address] Podiatry 06/26/18 Sy Barrientos MD [address] [place] [address] [place] [address] Ophthalmology 06/26/18 [place] [address] [place] [address] Pulmonary Disease 06/26/18 Rico Gasca MD [address] [facility] [address] [place] [address] Urology 06/26/18 Elle Landaverde MD [address] [facility] [address] [place] [address] Vascular Surgery 06/26/18 Kirk Truong MD [address] [facility] [address] [place] [address] Gastroenterology 06/26/18 [place] [address] [place] [address] General Surgery 06/26/18 documented as of this encounter
--- OUTSIDE RECORDS SUMMARY | 2024-05-26 12:37 | XMS_ITS | Encounter Summary ---
Author Organization [facility] Address [address] [place] [address] Care Team Providers Care Lumber Trimmer Name Role Phone Etienne Florez MD Unavailable Enrique Gonzalez MD Unavailable [phone] Theresa Camargo MD Primary Care Provider Nelson Ross MD Unavailable Laz Valencia MD Unavailable Russell Moran MD Unavailable Yuliya Ibarra MD Unavailable [phone] Phuong Callejas DPM Unavailable [phone] Sy Barrientos MD Unavailable [phone] Russell Moran MD Unavailable Rico Gasca MD Unavailable [phone] Elle Landaverde MD Unavailable Kirk Truong MD Unavailable Shira Love DO Unavailable [phone] Ahsa Narvaez [facility] Unavailable [phone] Reason for Visit * Reason Comments Refill Request Encounter Details Date Type Department Care Team (Late st Contact Info) Description 04/22/2020 Refill [facility] Family Medicine [address] [facility] [address] [place] [address] [place] [address] [facility] [address] [place] [address] Refill Request Social History Tobacco [...] have Coronavirus / COVID-19? No / Unsure 03/30/2020 10:14 AM BAG INSPECTOR documented as of this encounter Functional Status [...] < 140/90 Blood Pressure 127/52(2022 8:09 AM BAG INSPECTOR) No Alisa Jaramillo HEMOGLOBIN A1C < 7.0 Result Component 5.4( 12:00 AM CDT) No Alisa Jaramillo documented as of this encounter Visit Diagnoses Not on filedocumented in this encounter Care Teams Lumber Trimmer Relationship Specialty [place] [address] [facility] [address] [place] [address] PCP - General Internal Medicine 03/31/18 05/30/22 Asha Narvaez, ROTARY SURFACE GRINDER-PROPELLER ENGINEER [address] [facility] [address] [place] [address] PCP - Attributed-MSSP 02/17/20 06/18/20 Etienne Florez MD Orthopedic Surgery 12/09/14 [place] [address] [facility] [address] [place] [address] Oncology 09/15/17 [place] [address] [facility] [address] [place] [address] Neurology 06/26/18 [place] [address] [facility] [address] [place] [address] Cardiovascular Disease 06/26/18 [place] [address] [address] Pulmonary Disease 06/26/18 Yuliya Ibarra MD [address] [facility] [address] [place] [address] Endocrinology 06/26/18 Phuong Callejas DPM [address] [place] [address] Podiatry 06/26/18 Sy Barrientos MD [address] [place] [address] [place] [address] Ophthalmology 06/26/18 [place] [address] [address] Pulmonary Disease 06/26/18 Rico Gasca MD [address] [address] Urology 06/26/18 Elle Landaverde MD [address] [address] Vascular Surgery 06/26/18 Kirk Truong MD [address] [address] Gastroenterology 06/26/18 [place] [address] [id number] General Surgery 06/26/18 documented as of this encounter
--- OUTSIDE RECORDS SUMMARY | 2024-05-26 12:37 | XMS_ITS | Encounter Summary ---
Author Organization [facility] Address [address] [place] [place] [address] Care Team Providers Care Business Banking Representative Name Role Phone Etienne Florez MD Unavailable [phone] Enrique Gonzalez MD Unavailable [phone] Theresa Camargo MD Primary Care Provider Nelson Ross MD Unavailable [phone] Laz Valencia MD Unavailable Russell Moran MD Unavailable [phone] Yuliya Ibarra MD Unavailable Phuong Callejas DPM Unavailable Sy Barrientos MD Unavailable Russell Moran MD Unavailable [phone] Rico Gasca MD Unavailable [phone] Elle Landaverde MD Unavailable Kirk Truong MD Unavailable Shira Love DO Unavailable Asha Narvaez FUR REPAIRER-[facility] Unavailable [phone] Encounter Details Date Type Department Care Team (Latest Contact Info) Description 06/13/2020 Travel Social History Tobacco Use Types Packs/Day [...] COVID-19? No / Unsure 06/13/2020 11:38 AM TOOLMAKER HELPER documented as of this encounter Functional Status [...] < 140/90 Blood Pressure 127/52(2022 8:09 AM TOOLMAKER HELPER) No Alisa Jaramillo HEMOGLOBIN A1C < 7.0 Result Component 5.4( 12:00 AM CDT) No Alisa Jaramillo documented as of this encounter Visit Diagnoses Not on filedocumented in this encounter Care Teams Business Banking Representative Relationship Specialty [place] [address] [address] PCP - General Internal Medicine 03/31/18 05/30/22 Asha Narvaez APRN-TOLL TICKET CLERK [address] [facility] [address] [place] [address] PCP - Attributed-MSSP 02/17/20 06/18/20 Etienne Florez MD Orthopedic Surgery 12/09/14 [place] [address] [address] Oncology 09/15/17 [place] [address] [address] Neurology 06/26/18 [place] [address] [facility] [address] [place] [address] Cardiovascular Disease 06/26/18 [place] [address] [facility] [address] [place], [place] [id number] Pulmonary Disease 06/26/18 Yuliya Ibarra MD [address] [facility] [address] [place] [address] Endocrinology 06/26/18 Phuong Callejas DPM [address] [place], [place] [address] Podiatry 06/26/18 Sy Barrientos MD [facility] [address] [place] [address] Ophthalmology 06/26/18 [place] [address] [address] Pulmonary Disease 06/26/18 Rico Gasca MD [address] [facility] [address] [place] [address] Urology 06/26/18 Elle Landaverde MD [address] [facility] [address] [place] [address] Vascular Surgery 06/26/18 Kirk Truong MD [address] [facility] [address] [address] Gastroenterology 06/26/18 [place] [address] [place] [address] General Surgery 06/26/18 documented as of this encounter
--- OUTSIDE RECORDS SUMMARY | 2024-05-26 12:37 | XMS_ITS | Encounter Summary ---
Author Organization [facility] Address [address] [facility] [place] [address] Care Team Providers Care Hydraulic Mechanic Name Role Phone Etienne Florez MD Unavailable Enrique Gonzalez MD Unavailable [phone] Theresa Camargo MD Primary Care Provider Nelson Ross MD Unavailable Laz Valencia MD Unavailable Russell Moran MD Unavailable Yuliya Ibarra MD Unavailable Phuong Callejas DPM Unavailable Sy Barrientos MD Unavailable Russell Moran MD Unavailable Rico Gasca MD Unavailable Elle Landaverde MD Unavailable [phone] Kirk Truong MD Unavailable [phone] Shira Love DO Unavailable [phone] Asha Narvaez [facility] Unavailable [phone] Reason for Visit * Reason Onset Date Comments Scheduling 05/22/2020 Question 05/22/2020 Encounter Details Date Type Department Care Team (Late st Contact Info) Description 05/22/2020 Telephone [facility] Medical [facility] - Family Medicine [address] [facility] [address] [place] [address] [place] [address] [facility] [address] [place] [address] Scheduling; Question Social History Tobacco Use Types Packs/Day [...] COVID-19? No / Unsure 05/22/2020 8:21 AM FARMER AND GRAZIER documented as of this encounter Functional Status [...] * Telephone Encounter - Jina Haskins - 05/22/2020 1:47 PM CST Appt made or both her and 06/09/2020 @ 10:45 and 11:30 ER AND GRAZIER * Telephone Encounter - Brandi Donis - 05/22/2020 8:25 AM FARMER AND GRAZIER Who is calling? Patient What is the reason for call? Patient called in stating that she had to cancel appointments today because she's not feeling well , patient want to know if she could reschedule along with her with PCP only sometime later in the month , but no availability. Please call patient for scheduling Expected Response from the Clinic? Call back [facility] documented in this encounter Plan of Treatment Not on file documented as of this encounter Goals Goal Patient Goal Type Associated Problems Recent Progress Patient-Stated? 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 8:09 AM FARMER AND GRAZIER) No Alisa Jaramillo HEMOGLOBIN A1C < 7.0 Result Component 5.4( 12:00 AM CDT) No Alisa Jaramillo documented as of this encounter Visit Diagnoses Not on filedocumented in this encounter Care Teams Hydraulic Mechanic Relationship Specialty Start [place] [address] [address] [facility] [address] [place] [address] PCP - General Internal Medicine 03/31/18 05/30/22 Asha Narvaez, BOW MAKER GIFT WRAPPING-AIRCONDITIONING PLANT OPERATOR [address] [facility] [place] [facility] [address] [place] [address] PCP - Attributed-MSS 02/17/20 06/18/20 Etienne Florez MD Orthopedic Surgery 12/09/14 [place] [address] [facility] [employer] [address] [place] [id number] Oncology 09/15/17 [place] [address] [facility] [address] [place] [address] Neurology 06/26/18 [place] [address] [facility] [address] [place] [address] Cardiovascular Disease 06/26/18 [place] [address] [address] Pulmonary Disease 06/26/18 Yuliya Ibarra MD [address] [facility] [address] [place] [address] Endocrinology 06/26/18 Phuong Callejas DPM [address] [place], [place] [address] Podiatry 06/26/18 Sy Barrientos MD [address] [place] [address] [place] [address] Ophthalmology 06/26/18 [place] [address] [place] [address] [place] [id number] Pulmonary Disease 06/26/18 Rico Gasca MD [address] [facility] [address] [place] [address] Urology 06/26/18 Elle Landaverde MD [address] [facility] [address] [place] [address] Vascular Surgery 06/26/18 Kirk Truong MD [address] [facility] [address] [place] [address] Gastroenterology 06/26/18 [place] [address] [address] General Surgery 06/26/18 documented as of this encounter
--- OUTSIDE RECORDS SUMMARY | 2024-05-26 12:37 | XMS_ITS | Encounter Summary ---
Author Organization [facility] Address [address] [facility] [place] [address] Care Team Providers Care Cross Tie Tram Loader Name Role Phone Etienne Florez MD Unavailable Enrique Gonzalez MD Unavailable [phone] Theresa Camargo MD Primary Care Provider Nelson Ross MD Unavailable Laz Valencia MD Unavailable Russell Moran MD Unavailable Yuliya Ibarra MD Unavailable [phone] Phuong Callejas DPM Unavailable [phone] Sy Barrientos MD Unavailable Russell Moran MD Unavailable Rico Gasca MD Unavailable Elle Landaverde MD Unavailable [phone] Kirk Truong MD Unavailable [phone] Shira Love DO Unavailable [phone] Asha Narvaez FOREIGN EXCHANGE POSITION CLERK-[facility] Unavailable [phone] Reason for Visit * Reason Comments Refill Request Encounter Details Date Type Department Care Team (Late st Contact Info) Description 08/22/2020 Refill [facility] [address] [facility] [address] [place] [address] [place] [address] [facility] [address] [place] [address] Refill Request Social History Tobacco [...] * Telephone Encounter - Eva Sinha - 08/22/2020 9:45 AM CDT Perla Leon Allergies Allergen Reactions ??? Advair Diskus YEAS INFECTION ??? Aricept [Donepezil] Other I dont remember ??? Diltiazem Swelling ??? Metformin Diarrhea ??? Black Pepper [[place]] Unknown ??? Fluticasone Diarrhea ??? Salmeterol Diarrhea ??? Sotalol Other Hair loss Requested Prescriptions Pending Prescriptions Disp Refills ??? amitriptyline (ELAVIL) 25 MG tablet [Pharmacy Med Name: AMITRIPTYLINE HCL 25 MG TAB] 60 tablet 5 Sig: TAKE 2 TABLETS BY MOUTH EVERY DAY AT BEDTIME LAST FILL: 07/2020 LAST OV: 06/13/2020 documented in this encounter Plan of Treatment Not on file documented as of this encounter Goals Goal Patient Goal Type Associated Problems Recent Progress Patient-Stated? 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 8:09 AM BUNCH MAKER) No Alisa Jaramillo HEMOGLOBIN A1C < 7.0 Result Component 5.4( 12:00 AM CDT) No Alisa Jaramillo documented as of this encounter Visit Diagnoses Not on filedocumented in this encounter Care Teams Cross Tie Tram Loader Relationship Specialty Start [place] [address] [employer] [facility] [address] [place] [address] PCP - General Internal Medicine 03/31/18 05/30/22 Asha Narvaez APRN-SIGN POSTER [address] [facility] [address] [place] [address] PCP - Attributed-MSSP 08/17/20 10/16/20 Etienne Florez MD Orthopedic Surgery 12/09/14 [place] [address] [employer] [facility] [address] [place] [address] Oncology 09/15/17 [place] [address] [employer] [facility] [address] [place] [address] Neurology 06/26/18 [place] [address] [facility] [address] [place] [address] Cardiovascular Disease 06/26/18 [place] [address] [address] [place], [place] [id number] Pulmonary Disease 06/26/18 Yuliya Ibarra MD [address] [facility] [address] [place] [address] Endocrinology 06/26/18 Phuong Callejas DPM [address] [place], [place] [address] Podiatry 06/26/18 Sy Barrientos MD [address] [place] [address] [place] [address] Ophthalmology 06/26/18 [place] [address] [address] Pulmonary Disease 06/26/18 Rico Gasca MD [address] [facility] [address] [place] [address] Urology 06/26/18 Elle Landaverde MD [address] [place] [address] Vascular Surgery 06/26/18 Kirk Truong MD [address] [facility] [address] [place] [address] Gastroenterology 06/26/18 [place] [address] [facility] [address] [place] [address] General Surgery 06/26/18 documented as of this encounter
--- OUTSIDE RECORDS SUMMARY | 2024-05-26 12:37 | XMS_ITS | Encounter Summary ---
Author Organization [facility] Address [address] [place] [address] Care Team Providers Care Cage Shift Manager Name Role Phone Etienne Florez MD Unavailable [phone] Enrique Gonzalez MD Unavailable [phone] Theresa Camargo MD Primary Care Provider Nelson Ross MD Unavailable [phone] Laz Valencia MD Unavailable Elie Moran MD Unavailable Yuliya Ibarra MD Unavailable Phuong Callejas DPM Unavailable [phone] Sy Barrientos MD Unavailable Elie Moran MD Unavailable [phone] Rico Gasca MD Unavailable Elle Landaverde MD Unavailable [phone] Kirk Truong MD Unavailable [phone] Shira Love DO Unavailable [phone] Asha Narvaez INSIDE STEWARD[facility] Unavailable [phone] Reason for Visit * Reason Onset Date Comments Diarrhea 05/02/2020 Encounter Details Date Type Department Care Team (Late st Contact Info) Description 05/02/2020 Telephone [facility] [address] [facility], [address] [place] [address] [place] [address] [facility] [address] [place] [address] Diarrhea Social History Tobacco Use Types Packs/Day [...] encounter Miscellaneous Notes * Addendum Note - Nadja Wiggins RN - 05/03/2020 9:26 AM CSTAddended by: NADJA WIGGINS on: 05/03/2020 09:26 AM Modules accepted: Orders S REPRESENTATIVE ELECTRIC SERVICE * Telephone Encounter - Nadja Wiggins RN - 05/03/2020 9:25 AM CST Labs ordered, will go on 05/05 to [facility]. F/u ov made. S REPRESENTATIVE ELECTRIC SERVICE * Telephone Encounter - Kirk Truong MD - 05/02/2020 10:14 PM SALES REPRESENTATIVE ELECTRIC SERVICE Check stool cx, c diff, ova and parasite, and fecal lactoferrin Check TSH w/ reflex T4, TTG IGA, Total IgA OV or telemed after above completed S REPRESENTATIVE ELECTRIC SERVICE * Telephone Encounter - Nadja Wiggins RN - 05/02/2020 4:30 PM CST Past month experiencing diarrhea and past few days has been having accidents. Having 2 stools dailythat are very loose and watery. . Normally taking miralax every other day for hard stools, sometimes going 1 week without BM. but stopped Miralax yesterday. No recent abx exposure.. Feels nauseated after BM's . 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 8:09 AM SALES REPRESENTATIVE ELECTRIC SERVICE) No Alisa Jaramillo HEMOGLOBIN A1C < 7.0 Result Component 5.4( 1 12:00 AM CDT) No Alisa Jaramillo documented as of this encounter Procedures Procedure Name Priority Date/Time Associated Diagnosis Comments C DIFFICILE CYTOTOXIN Routine 05/23/2020 9:10 AM SALES REPRESENTATIVE ELECTRIC SERVICE Diarrhea, unspecified type O+P PANEL Routine 05/23/2020 9:10 AM SALES REPRESENTATIVE ELECTRIC SERVICE Diarrhea, unspecified type CULTURE STOOL PANEL Routine 05/23/2020 9 :10 AM SALES REPRESENTATIVE ELECTRIC SERVICE Diarrhea, unspecified type LACTOFERRIN FECAL QUALITATIVE Routine 05/23/2020 9:10 AM SALES REPRESENTATIVE ELECTRIC SERVICE Diarrhea, unspecified type TSH REFLEX FREE T4 Routine 05/05/2020 1: 53 PM SALES REPRESENTATIVE ELECTRIC SERVICE Diarrhea, unspecified type TISSUE TRANSGLUTAMINASE AB IGA Routine 05/05/2020 1:53 PM SALES REPRESENTATIVE ELECTRIC SERVICE Diarrhea, unspecified type IGA BLOOD Routine 05/05/2020 1:53 PM SALES REPRESENTATIVE ELECTRIC SERVICE Diarrhea, unspecified type documented in this encounter Results * C DIFFICILE CYTOTOXIN (05/23/2020 9:10 AM SALES REPRESENTATIVE ELECTRIC SERVICE) Cytotoxin Assay Stool NOT DETECTED [facility] Comment: REFERENCE RANGE: NOT DETECTED Per CDC the Clostridium difficile cytotoxicity assay, order code 4408, has served as a historical gold standard for diagnosing clinical significant disease caused by Clostridium difficile, however, it is not timely for routine diagnosis. [facility] and [facility] guidelines now recognize either two step testing using Clostridium difficile toxin/Glutamate Dehydrogenase (GDH) with Reflex to PCR, order code 43455 or Clostridium difficile toxin B, Qualitative real time PCR, test code 08146 to be more sensitive and timely methods for the diagnosis of C. difficile colitis. For additional information, please refer to http://education.Blitsy/faq/ERX199 (This link is being provided for informational/ educational purposes only.) Test Performed at: [facility] [address] [place] [address] ??[phone] Asa ROBISON Stool STOOL SPECIMEN / Unknown 05/23/2020 9:10 AM SALES REPRESENTATIVE ELECTRIC SERVICE 05/23/2020 9:10 AM SALES REPRESENTATIVE ELECTRIC SERVICE Kirk Truong MD LAB - MICROBIOLOGY ORDERABLES [facility] [address] [place] [address] * CULTURE STOOL PANEL (05/23/2020 9:10 AM SALES REPRESENTATIVE ELECTRIC SERVICE) EIA [facility] Comment: ??SHIGA TOXINS, EIA W/RFL TO E.COLI O157 CULTURE ?Micro Number: ?[id number] ??Test Status: ? Final ??Specimen Source: ?? STOOL ??Specimen Quality: ??Adequate ??Shiga Toxin: ? Not Detected ??Reference Range: ?? Not Detected ?? Culture [facility] Comment: ??CAMPYLOBACTER, CULTURE ?Micro Number: ?[id number] ??Test Status: ? Final ??Specimen Source: ?? STOOL ??Specimen Quality: ??Adequate ??Result: ?No enteric Campylobacter isolated Culture [facility] Comment: ??SALMONELLA AND SHIGELLA, CULTURE ?Micro Number: ?[id number] ??Test Status: ? Final ??Specimen Source: ?? STOOL ??Specimen Quality: ??Adequate ??Result: ?No Salmonella or Shigella isolated Test Performed at: [facility] ??[id number] SENDY FABIAN MD Stool STOOL SPECIMEN / Unknown 05/23/2020 9:10 AM SALES REPRESENTATIVE ELECTRIC SERVICE 05/23/2020 9:10 AM SALES REPRESENTATIVE ELECTRIC SERVICE Kirk Truong MD LAB - MICROBIOLOGY ORDERABLES [address] [address] * LACTOFERRIN FECAL QUALITATIVE (05/23/2020 9:10 AM SALES REPRESENTATIVE ELECTRIC SERVICE) Lactoferrin Fecal [facility] Comment: ??LACTOFERRIN, QL, STOOL ?Micro Number: ?[id number] ??Test Status: ? Final ??Specimen Source: ?? [...] ileostomy within 1 month. Test Performed at: [facility] ??[phone] SENDY FABIAN MD Stool STOOL SPECIMEN / Unknown 05/23/2020 9:10 AM SALES REPRESENTATIVE ELECTRIC SERVICE 05/23/2020 9:10 AM SALES REPRESENTATIVE ELECTRIC SERVICE Kirk Truong MD LAB - BODY FLUID OR DERABLES [address] [address] * O+P PANEL (05/23/2020 9:10 AM SALES REPRESENTATIVE ELECTRIC SERVICE) Trichrome (1) [facility] Comment: ??OVA AND PARASITES, CONC AND PERM SMEAR ?Micro Number: ?[id number] ??Test Status: ? Final ??Specimen Source: ?? FECES ??Specimen Quality: ??Adequate ??CONCENTRATION 1: ?? No ova or parasites seen ??TRICHROME 1: ? No ova or parasites seen ? Routine Ova and Parasite exam may not detect some ? parasites that occasionally cause diarrheal ? illness. Test code(s) 26371 (Cryptosporidium Ag., ? DFA) and/or 37459 (Cyclospora and Isospora Exam) ? may be ordered to detect these parasites. One ? negative sample does not necessarily rule out ? the presence of a parasitic infection. ? For additional information, please refer to ? https://education.TheLocker.Propel IT/faq/DTK836 ? (This link is being provided for informational/ ? educational purposes only.) Test Performed at: [facility] ??[phone] SENDY FABIAN MD Stool STOOL SPECIMEN / Unknown 05/23/2020 9:10 AM SALES REPRESENTATIVE ELECTRIC SERVICE 05/23/2020 9:10 AM SALES REPRESENTATIVE ELECTRIC SERVICE Kirk Truong MD LAB - MICROBIOLOGY ORDERABLES [facility] [address] [place] [address] * TISSUE TRANSGLUTAMINASE AB IGA (05/05/2020 1:53 PM SALES REPRESENTATIVE ELECTRIC SERVICE) Pathologist [facility] TTG Antibody IgA 1 <4 U/mL [facility] Comment: ?Value ??Interpretation ?<4 U/mL: No Antibody Detected ? >or=4 U/mL: Antibody Detected Test Performed at: [facility]/[address] ??[phone] KIRK AGUILLON MD,PHD Blood BLOOD SPECIMEN / Unknown 05/05/2020 1:53 PM SALES REPRESENTATIVE ELECTRIC SERVICE 05/05/2020 1:53 PM SALES REPRESENTATIVE ELECTRIC SERVICE Kirk Truong MD LAB - SEROLOGY [place]OWAN QUIROZ Performing Organization Address [facility] de Phone Number [facility] [address] [place] [address] * IGA BLOOD (05/05/2020 1:53 PM SALES REPRESENTATIVE ELECTRIC SERVICE) Pathologist [facility] IgA 220 70 - 320 mg/dL [facility] Comment: Test Performed at: [facility] [employer] [address] [place] ??[address] ELIE HAMLIN DO,MPH Blood BLOOD SPECIMEN / Unknown 05/05/2020 1:53 PM SALES REPRESENTATIVE ELECTRIC SERVICE 05/05/2020 1:53 PM SALES REPRESENTATIVE ELECTRIC SERVICE Kirk Truong MD LAB - CHEMISTRY ORD SAMANTA Performing Organization Address [facility] de Phone Number [facility] [address] [place] [address] * TSH REFLEX FREE T4 (05/05/2020 1:53 PM SALES REPRESENTATIVE ELECTRIC SERVICE) Pathologist [facility] TSH with Reflex FT4 2.74 0.40 - 4.50 mIU/L [facility] Comment: Test Performed at: [facility] [place] [address] [place], [place] ??[address] ELIE HAMLIN DO,MPH Blood BLOOD SPECIMEN / Unknown 05/05/2020 1:53 PM SALES REPRESENTATIVE ELECTRIC SERVICE 05/05/2020 1:53 PM SALES REPRESENTATIVE ELECTRIC SERVICE Kirk Truong MD LAB - CHEMISTRY ORD ERABLES [facility] [address] [place] [address] documented in this encounter Visit Diagnoses Diagnosis Diarrhea, unspecified type- Primary documented in this encounter Care Teams Cage Shift Manager Relationship Specialty [place] [address] [facility] [address] [place] [address] PCP - General Internal Medicine 03/31/18 05/30/22 Asha Narvaez, INSIDE STEWARD/STEWARDESS-CNC GRINDER [address] [facility] [address] [place] [address] PCP - Attributed-MSSP 02/17/20 06/18/20 Etienne Florez MD Orthopedic Surgery 12/09/14 [place] [address] [address] Oncology 09/15/17 [place] [address] [facility] [address] [place] [address] Neurology 06/26/18 [place] [address] [address] [facility] [address] [place] [address] Cardiovascular Disease 06/26/18 [place] [address] [id number] Pulmonary Disease 06/26/18 Yuliya Ibarra MD [address] [place] [address] Endocrinology 06/26/18 Phuong Callejas DPM [address] [place], [place] [address] Podiatry 06/26/18 Sy Barrientos MD [address] [place], [place] [address] [address] Ophthalmology 06/26/18 [place] [address] [address] Pulmonary Disease 06/26/18 Rico Gasca MD [address] [facility] [address] [place] [address] Urology 06/26/18 Elle Landaverde MD [address] [facility] [address] [place] [address] Vascular Surgery 06/26/18 Kirk Truong MD [address] [facility] [address] [place] [address] Gastroenterology 06/26/18 [place] [address] [place] [address] [place] [address] General Surgery 06/26/18 documented as of this encounter
--- OUTSIDE RECORDS SUMMARY | 2024-05-26 12:37 | XMS_ITS | Encounter Summary ---
Author Organization [facility] Address [address] [facility] [place] [address] Care Team Providers Care Inside Sales Trainer Name Role Phone Etienne Florez MD Unavailable Enrique Gonzalez MD Unavailable [phone] Theresa Camargo MD Primary Care Provider [phone] Nelson Ross MD Unavailable Laz Valencia MD Unavailable Russell Moran MD Unavailable Yuliya Ibarra MD Unavailable Phuong Callejas DPM Unavailable Sy Barrientos MD Unavailable [phone] Russell Moran MD Unavailable Rico Gasca MD Unavailable Elle Landaverde MD Unavailable [phone] Kirk Truong MD Unavailable [phone] Shira Love DO Unavailable [phone] Asha Narvaez MANAGER [facility] Unavailable [phone] Reason for Visit * Reason Onset Date Comments MEDICATION REFILL 05/01/2020 Encounter Details Date Type Department Care Team (Late st Contact Info) Description 05/01/2020 Refill [facility] [address] [facility] [address] [place] [address] [place] [address] [facility] [address] [place] [address] MEDICATION REFILL Social History Tobacco [...] < 140/90 Blood Pressure 127/52(2022 8:09 AM ADMINISTRATOR) No Alisa Jaramillo HEMOGLOBIN A1C < 7.0 Result Component 5.4( 12:00 AM CDT) No Alisa Jaramillo documented as of this encounter Visit Diagnoses Not on filedocumented in this encounter Care Teams Inside Sales Trainer Relationship Specialty [place] [address] [facility] [address] [place], [place] [id number] PCP - General Internal Medicine 03/31/18 05/30/22 Asha Narvaez APRN-BRICK YARD HAND [address] [facility] [address] [place] [address] PCP - Attributed-MSSP 02/17/20 06/18/20 Etienne Florez MD Orthopedic Surgery 12/09/14 [place] [address] [facility] [address] [place] [address] Oncology 09/15/17 [place] [address] [facility] [address] [place] [address] Neurology 06/26/18 [place] [address] [facility] [address] [place] [address] Cardiovascular Disease 06/26/18 [place] [address] [address] Pulmonary Disease 06/26/18 Yuliya Ibarra MD [address] [facility] [address] [place] [address] Endocrinology 06/26/18 Phuong Callejas DPM [address] [place], [place] [address] Podiatry 06/26/18 Sy Barrientos MD [address] [place] [address] Ophthalmology 06/26/18 [place] [address] [address] Pulmonary Disease 06/26/18 Rico Gasca MD [address] [place] [address] Urology 06/26/18 Elle Landaverde MD [address] [place] [address] Vascular Surgery 06/26/18 Kirk Truong MD [address] [place] [address] Gastroenterology 06/26/18 [place] [address] [address] [facility] [address] [place] [address] General Surgery 06/26/18 documented as of this encounter
--- OUTSIDE RECORDS SUMMARY | 2024-05-26 12:37 | XMS_ITS | Encounter Summary ---
Author Organization [facility] Address [address] [place] [address] Care Team Providers Care Litharge Mill Operator Name Role Phone Etienne Florez MD Unavailable Enrique Gonzalez MD Unavailable [phone] Theresa Camargo MD Primary Care Provider Nelson Ross MD Unavailable Laz Valencia MD Unavailable Russell Moran MD Unavailable Yuliya Ibarra MD Unavailable Phuong Callejas DPM Unavailable Sy Barrientos MD Unavailable Russell Moran MD Unavailable Rico Gasca MD Unavailable Elle Landaverde MD Unavailable Kirk Truong MD Unavailable [phone] Shira Love DO Unavailable [phone] Asha Narvaez HOSPICE COORDINATOR-[facility] Unavailable [phone] Encounter Details Date Type Department Care Team (Latest Contact Info) Description 05/30/2020 Travel Social History Tobacco Use Types Packs/Day [...] COVID-19? No / Unsure 05/30/2020 12:11 PM MANGANESE WHEELER documented as of this encounter Functional Status [...] < 140/90 Blood Pressure 127/52(2022 8:09 AM MANGANESE WHEELER) No Alisa Jaramillo HEMOGLOBIN A1C < 7.0 Result Component 5.4( 12:00 AM CDT) No Alisa Jaramillo documented as of this encounter Visit Diagnoses Not on filedocumented in this encounter Care Teams Litharge Mill Operator Relationship Specialty [place] [address] [address] PCP - General Internal Medicine 03/31/18 05/30/22 Asha Narvaez APRN-SECONDS GRADER [address] [facility] [address] [place] [address] PCP - Attributed-MSSP 02/17/20 06/18/20 Etienne Florez MD Orthopedic Surgery 12/09/14 [place] [address] [address] Oncology 09/15/17 [place] [address] [address] Neurology 06/26/18 [place] [address] [facility] [address] [place] [address] Cardiovascular Disease 06/26/18 [place] [address] [facility] [address] [place], [place] [address] Pulmonary Disease 06/26/18 Yuliya Ibarra MD [address] [facility] [address] [place] [address] Endocrinology 06/26/18 Phuong Callejas DPM [address] [place], [place] [address] Podiatry 06/26/18 Sy Barrientos MD Formerly named [facility] [address] [place] [address] Ophthalmology 06/26/18 [place] [address] [address] Pulmonary Disease 06/26/18 Rico Gasca MD [address] [facility] [address] [place] [address] Urology 06/26/18 Elle Landaverde MD [address] [facility] [address] [place] [address] Vascular Surgery 06/26/18 Kirk Truong MD [address] [facility] [address], [place] [address] Gastroenterology 06/26/18 [place] [address] [place] [address] General Surgery 06/26/18 documented as of this encounter
--- OUTSIDE RECORDS SUMMARY | 2024-05-26 12:37 | XMS_ITS | Encounter Summary ---
Author Organization [facility] Address [address] [place] [address] Care Team Providers Care Director Of Family Service Center Name Role Phone Etienne Florez MD Unavailable Enrique Gonzalez MD Unavailable [phone] Theresa Camargo MD Primary Care Provider [phone] Nelson Ross MD Unavailable [phone] Laz Valencia MD Unavailable Russell Moran MD Unavailable Yuliya Ibarra MD Unavailable [phone] Phuong Callejas DPM Unavailable [phone] Sy Barrientos MD Unavailable Russell Moran MD Unavailable Rico Gasca MD Unavailable Elle Landaverde MD Unavailable Kirk Truong MD Unavailable [phone] Shira Love DO Unavailable [phone] Brice Asha Heidy [facility] Unavailable [phone] Reason for Visit * Reason Onset Date Comments COVID-19 IMMUNIZATION/INJECTION 06/13/2020 Encounter Details Date Type Department Care Team (Latest Contact Info) Description 06/13/2020 12:15 PM FERRIS WHEEL OPERATOR Clinical Support [facility] - COVID Vax [address] [place] [address] Need for vaccination Social History Tobacco Use Types Packs/Day Years [...] COVID-19? No / Unsure 06/13/2020 11:38 AM FERRIS WHEEL OPERATOR documented as of this encounter Functional [...] this encounter Patient Instructions * Patient Instructions* Evelyn Velasco - 06/13/2020 12:08 PM FERRIS WHEEL OPERATOR Images from the original note were not included. Vaccine recipients are encouraged to enroll in the CDC V-SAFE program for post vaccination monitoring. Sign up with your smartphone's browser at SafetyTat.cdc.gov or Aim your smartphone's camera at this code. IS WHEEL OPERATOR documented in this encounter Progress Notes * Evelyn Velasco - 06/13/2020 12:07 PM CST COVID screening checklist was reviewed with the patient. The Information sheet was given prior to administration. Injection site aseptically cleansed and injection given per Immunization(s) protocol.See Imm/Injections activity for details. IS WHEEL OPERATOR documented in this encounter Plan of Treatment Not on file documented as of this encounter Goals Goal Patient Goal Type Associated Problems Recent Progress Patient-Stated? 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 8:09 AM FERRIS WHEEL OPERATOR) No Alisa Jaramillo HEMOGLOBIN A1C < 7.0 Result Component 5.4( 12:00 AM CDT) No Alisa Jaramillo documented as of this encounter Visit Diagnoses Diagnosis Need for vaccination- Primary Need for prophylactic vaccination and inoculation against unspecified single disease documented in this encounter Care Teams Director Of Family Service Center Relationship Specialty Start [place] [address] [address] [facility] [address] [place] [address] PCP - General Internal Medicine 03/31/18 05/30/22 Asha Narvaez, BOBBIN CLEANER HAND-BUILDING CONSULTANT [address] [facility] [address] [place] [address] PCP - Attributed-MSSP 02/17/20 06/18/20 Etienne Florez MD Orthopedic Surgery 12/09/14 [place] [address] [address] Oncology 09/15/17 [place] [address] [address] [facility] [address] [place] [address] Neurology 06/26/18 [place] [address] [facility] [address] [place] [address] Cardiovascular Disease 06/26/18 [place] [address] [facility] [address] [place] [address] Pulmonary Disease 06/26/18 Yuliya Ibarra MD [address] [facility] [address] [place] [address] Endocrinology 06/26/18 Phuong Callejas DPM [address] [place] [address] Podiatry 06/26/18 Sy Barrientos MD [address] [place] [address] [place] [address] Ophthalmology 06/26/18 [place] [address] [place] [address] Pulmonary Disease 06/26/18 Rico Gasca MD [address] [place] [address] Urology 06/26/18 Elle Landaverde MD [address] [place] [address] Vascular Surgery 06/26/18 Kirk Truong MD [address] [facility] [address] [place] [address] Gastroenterology 06/26/18 [place] [address] [place] [address] General Surgery 06/26/18 documented as of this encounter
--- OUTSIDE RECORDS SUMMARY | 2024-05-26 12:37 | XMS_ITS | Encounter Summary ---
Author Organization [facility] Address [address] [place] [address] Care Team Providers Care Accounting Clerks Supervisor Name Role Phone Etienne Florez MD Unavailable Enrique Gonzalez MD Unavailable [phone] Theresa Camargo MD Primary Care Provider [phone] Nelson Ross MD Unavailable [phone] Laz Valencia MD Unavailable Russell Moran MD Unavailable Yuliya Ibarra MD Unavailable [phone] Phuong Callejas DPM Unavailable [phone] Sy Barrientos MD Unavailable [phone] Russell Moran MD Unavailable [phone] Rico Gasca MD Unavailable [phone] Elle Landaverde MD Unavailable Kirk Truong MD Unavailable Shira Love DO Unavailable [phone] BriceAsha Heidy [facility] Unavailable [phone] Encounter Details Date Type Department Care Team (Latest Contact Info) Description 06/02/2020 7:15 AM SHEET METAL ROOFER - 06/02/2020 11:59 PM SHEET METAL ROOFER Hospital Encounter [facility] - Laboratory [address] [place] [address] [place] [address] [address] Discharge Disposition: Home or Self [...] COVID-19? No / Unsure 05/30/2020 12:11 PM SHEET METAL ROOFER documented as of this encounter Functional Status [...] No 12/28/2016 documented as of this encounter Medications at Time of Discharge Medication Sig Dispensed Refills Start Date End Date dorzolamide (TRUSOPT) 2 % ophthalmic solution Instill 1 drop into both eyes 2 times daily 11/16/2019 multivitamin with iron (ONE A DAY WITH IRON) tablet Take 1 Tab by mouth once daily. PROLENSA 0.07 % opthalmic solution Instill 1 drop into right eye once daily 2 02/25/2019 SITagliptin (JANUVIA) 100 MG tablet Take 100 mg by mouth once daily spironolactone (ALDACTONE) 25 MG tablet Take 25 mg by mouth once daily albuterol HFA (PROAIR HFA) 108 (90 BASE) MCG/ACT inhaler Take 2 Puffs by mouth every 4 hours as needed. 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 30 tablet 3 10/15/2017 06/21/2020 aspirin (ASPIRIN) 81 MG tablet Take 81 mg by mouth once daily 09/20/2020 BD PEN NEEDLE HAYDEN U/F 32G X 4 MM MISC USE TO INJECT INSULIN ONCE DAILY 05/05/2020 05/21/2022 calcium carbonate-vitamin D (CALTRATE 600+D) 600-400 MG-UNIT tablet Take 1 tablet by mouth 2 times daily 60 tablet 10/29/2017 06/09/2020 canagliflozin (INVOKANA) 100 MG tablet Take 100 mg by mouth daily before breakfast 07/21/2019 05/21/2022 clopidogrel (PLAVIX) 75 MG tablet Take 1 tablet by mouth at bedtime 90 tablet 4 05/03/2020 09/20/2020 Cranberry-Vitamin C (AZO CRANBERRY URINARY TRACT) 250-60 MG Take 2 tablets by mouth once daily 05/21/2022 Cyanocobalamin 1000 MCG Take by mouth once daily. 05/21/2022 empagliflozin (JARDIANCE) 10 MG tablet Take 1 tablet by mouth once daily 90 tablet 02/09/2018 06/09/2020 esomeprazole (NEXIUM) 40 MG capsule TAKE 1 CAPSULE DAILY 90 capsule 4 06/04/2019 06/28/2020 FLECAINIDE ACETATE PO Take 50 mg by mouth 2 times daily 09/14/2020 FREESTYLE LITE STRIPS test strip TEST BLOOD SUGARS THREE TIMES A DAY 05/05/2020 05/21/2022 furosemide (LASIX) 40 MG tablet Take 1 Tab by mouth once daily 90 Tab 2 12/04/2016 07/03/2020 glimepiride (AMARYL) 1 MG tablet Take 1 mg by mouth 3 times daily 2 tabs in the AM, 2 tabs at noon and 1 tab at bedtime 05/21/2022 hydroxypropyl methylcellulose 0.3% (SYSTANE OVERNIGHT THERAPY) 0.3 % ophthalmic gel Instill 1 Drop into both eyes nightly as needed for Dry Eyes 09/14/2020 LANTUS SOLOSTAR pen INJECT 8 UNITS SUBCUTANEOUSLY EVERY DAY IN THE MORNING 05/05/2020 09/14/2020 latanoprost (XALATAN) 0.005 % ophthalmic solution Instill 1 drop into both eyes at bedtime 09/14/2020 levothyroxine (SYNTHROID) 25 MCG tablet Take 25 mcg by mouth daily before breakfast 09/14/2020 levothyroxine (SYNTHROID) 50 MCG tablet Take 50 mcg by mouth daily before breakfast 05/22/2020 12/14/2020 menthol-zinc oxide (CALMOSEPTINE) 0.44-20.6 % ointment Apply to affected area as needed for Other 09/14/2020 metOLazone (ZAROXOLYN) 2.5 MG tablet Take 1 tablet by mouth twice a week on Friday and 05/30/2022 nystatin (MYCOSTATIN) 481909 UNIT/GM powder Apply to affected area 2 times daily 60 g 04/12/2019 09/14/2020 nystatin-triamcinolone (MYCOLOG) 629955-3.1 UNIT/GM-% cream Apply to affected area 2 times daily 30 g 02/11/2020 09/14/2020 polyethyl glycol-propyl glycol (SYSTANE) 0.4-0.3 % ophth solution Instill 1 drop into both eyes once as needed 09/14/2020 polyethylene glycol 3350 (MIRALAX) packet Take 17 g by mouth once daily 08/09/2020 potassium chloride ER (KLOR-CON) 20 MEQ tablet TAKE 1 TABLET BY MOUTH FOUR TIMES A DAY 120 tablet 3 04/24/2020 09/04/2020 rosuvastatin (CRESTOR) 10 MG tablet Take 1 tablet by mouth at bedtime 90 tablet 2 05/03/2020 08/10/2021 verapamil SR 24hr (VERELAN) 120 MG capsule Take 120 mg by mouth at bedtime 11/10/2019 05/21/2022 Water For Irrigation, Sterile 60 mL by Irrigation route once daily as needed (catheter not draining) 500 mL 3 07/21/2019 09/14/2020 documented as of this encounter Plan of Treatment Not on file documented as of this encounter Goals Goal Patient Goal Type Associated Problems Recent Progress Patient-Stated? 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 8:09 AM SHEET METAL ROOFER) No Alisa Jaramillo HEMOGLOBIN A1C < 7.0 Result Component 5.4( 12:00 AM CDT) No Alisa Jaramillo documented as of this encounter Visit Diagnoses Not on filedocumented in this encounter Care Teams Accounting Clerks Supervisor Relationship Specialty Start [place] [address] [facility] [address] [place] [address] PCP - General Internal Medicine 03/31/18 05/30/22 Asha Narvaez, LAMP W[facility] [address] [facility] [address] [place] [address] PCP - Attributed-MSSP 02/17/20 06/18/20 Etienne Florez MD Orthopedic Surgery 12/09/14 [place] [address] [phone] Oncology 09/15/17 [place] [address] [address] Neurology 06/26/18 [place] [address] [facility] [address] [place] [address] Cardiovascular Disease 06/26/18 [place] [address] [address] [place], [place] [id number] Pulmonary Disease 06/26/18 Yuliya Ibarra MD [address] [place] [address] Endocrinology 06/26/18 Phuong Callejas DPM [address] [place] [address] Podiatry 06/26/18 Sy Barrientos MD [address] [place] [address] [place] [address] Ophthalmology 06/26/18 [place] [address] [id number] Pulmonary Disease 06/26/18 Rico Gasca MD [address] [facility] [address] [place] [address] Urology 06/26/18 Elle Landaverde MD [address] [facility] [place] [address] Vascular Surgery 06/26/18 Kirk Truong MD [address] [place] [address] Gastroenterology 06/26/18 [place] [address] [place] [address] General Surgery 06/26/18 documented as of this encounter
--- OUTSIDE RECORDS SUMMARY | 2024-05-26 12:37 | XMS_ITS | Encounter Summary ---
Author Organization [facility] Address [address] [facility] [address] [place] [address] Care Team Providers Care Strategic Procurement Manager Name Role Phone Etienne Florez MD Unavailable Enrique Gonzalez MD Unavailable [phone] Theresa Camargo MD Primary Care Provider Nelson Ross MD Unavailable Laz Valencia MD Unavailable Russell Moran MD Unavailable [phone] Yuliya Ibarra MD Unavailable [phone] Phuong Callejas DPM Unavailable Sy Barrientos MD Unavailable [phone] Russell Moran MD Unavailable Rico Gasca MD Unavailable Elle Landaverde MD Unavailable [phone] Kirk Truong MD Unavailable [phone] Shira Love DO Unavailable Theresa Camargo MD Unavailable [phone] Reason for Visit * Reason Comments Refill Request Encounter Details Date Type Department Care Team (Late st Contact Info) Description 06/20/2020 Refill [facility] [id number] [place] [address] [place] [address] [address] Refill Request Social History Tobacco Use [...] COVID-19? No / Unsure 06/13/2020 11:38 AM TEAM CDL DRIVER documented as of this encounter Functional Status [...] < 140/90 Blood Pressure 127/52(2022 8:09 AM TEAM CDL DRIVER) No Alisa Jaramillo HEMOGLOBIN A1C < 7.0 Result Component 5.4( 12:00 AM CDT) No Schildroth, Alisa documented as of this encounter Visit Diagnoses Not on filedocumented in this encounter Care Teams Strategic Procurement Manager Relationship Specialty Start [place] [address] [facility] [address] [place] [address] PCP - General Internal Medicine 03/31/18 05/30/22 [place] [address] [facility] [address] [place] [address] PCP - Attributed-MSSP 06/19/20 08/16/20 Etienne Florez MD Orthopedic Surgery 12/09/14 [place] [address] [facility] [address] [place] [address] Oncology 09/15/17 [place] [address] [facility] [address] [place] [address] Neurology 06/26/18 [place] [address] [facility] [address] [place] [address] Cardiovascular Disease 06/26/18 [place] [address] [facility] [address] [place] [address] Pulmonary Disease 06/26/18 Yuliya Ibarra MD [address] [facility] [address] [place] [address] Endocrinology 06/26/18 Phuong Callejas DPM [address] [place] [address] Podiatry 06/26/18 Sy Barrientos MD [address] [place] [address] [place] [address] Ophthalmology 06/26/18 [place] [address] [address] Pulmonary Disease 06/26/18 Rico Gasca MD [address] [phone] Urology 06/26/18 Elle Landaverde MD [address] [address] Vascular Surgery 06/26/18 Kirk Truong MD [address] [address] Gastroenterology 06/26/18 [place] [address] [phone] General Surgery 06/26/18 documented as of this encounter
--- OUTSIDE RECORDS SUMMARY | 2024-05-26 12:37 | XMS_ITS | Encounter Summary ---
Author Organization [facility] Address [address] [facility] [place] [address] Care Team Providers Care Space Planner Name Role Phone Etienne Florez MD Unavailable Enrique Gonzalez MD Unavailable [phone] Theresa Camargo MD Primary Care Provider Nelson Ross MD Unavailable Laz Valencia MD Unavailable Russell Moran MD Unavailable Yuliya Ibarra MD Unavailable [phone] Phuong Callejas DPM Unavailable Sy Barrientos MD Unavailable Russell Moran MD Unavailable [phone] Rico Gasca MD Unavailable Elle Landaverde MD Unavailable Kirk Truong MD Unavailable [phone] Shira Love DO Unavailable [phone] Asha Narvaez [facility] Unavailable [phone] Reason for Referral * Radiology Services (Routine) - Closed Specialty Diagnoses / Procedures Referred By Contac t Referred To Contact Vascular Lab Diagnoses Mass of left lower extremity Procedures VAS BILATERAL VENOUS DUPLEX Nleson Mcleod MD [address] [place] [address] Referral ID Status Reason Start Date Expiration Date Visits Re quested Visits Authorized [id number] Closed 06/13/2020 06/13/2021 1 1 MAKER Reason for Visit * Radiology Services (Routine) - Closed Specialty Diagnoses / Procedures Referred By Contac t Referred To Contact Vascular Lab Diagnoses Mass of left lower extremity Procedures VAS BILATERAL VENOUS DUPLEX Nelson Mcleod MD [address] [place] [address] Referral ID Status Reason Start Date Expiration Date Visits Re quested Visits Authorized [id number] Closed 06/13/2020 06/13/2021 1 1 Encounter Details Date Type Department Care Team (Latest Contact Info) Description 06/13/2020 12:53 PM BOW MAKER - 06/13/2020 11:59 PM BOW MAKER Hospital Encounter [facility] Vascular Services [address] [place] [address], [address] [place] [address] Claude Engel MD [address] [place] [address] [address] [place] [address] Discharge Disposition: Home or Self [...] COVID-19? No / Unsure 06/13/2020 11:38 AM BOW MAKER documented as of this encounter Functional Status [...] MCG Take by mouth once daily. 05/21/2022 esomeprazole (NEXIUM) 40 MG capsule TAKE 1 [...] week on Friday and 05/30/2022 nystatin (MYCOSTATIN) 045179 UNIT/GM powder Apply to affected area 2 times daily 60 g 04/12/2019 09/14/2020 nystatin-triamcinolone (MYCOLOG) 226539-9.1 UNIT/GM-% cream Apply to affected area 2 [...] < 140/90 Blood Pressure 127/52(2022 8:09 AM BOW MAKER) No Alisa Jaramillo HEMOGLOBIN A1C < 7.0 Result Component 5.4( 12:00 AM CDT) No Alisa Jaramillo documented as of this encounter Procedures Procedure Name Priority Date/Time Associated Diagnosis Comments VAS BILATERAL VENOUS DUPLEX LE Routine 06/13/2020 1:19 PM BOW MAKER Mass of left lower extremity documented in this encounter Results * VAS BILATERAL VENOUS DUPLEX LE (06/13/2020 1:19 PM BOW MAKER) Anatomical Region Laterality Modality Lower Extremity Ultrasound 06/13/2020 12:5 8 PM BOW MAKER Narrative Procedure Note Claude Engel MD - 06/13/2020 [facility]ascular [facility] [address] [facility], [address] [place] [address] Lower Extremity Venous Ultrasound Report Pat.Name: LOC ANDERSON Pat.ID: [id number] .Date: 06/13/2020 Refer.: LUIS EDUARDO WEBSTER Exam Time: 12:58:00 PM Study Type:LE Venous Age: 7 1940,79Y Sex: FEMALE Sonogrphr: Thiago Sutherland RVT Pat. Stat.:Outpatient ICD - 9: I82.493 Acute embolism and thrombosis of other specified deep vein of lower extremity CPT - 4: 14793 Procedures: Lower Extremity Venous - Bilateral Race: 2 Visit ID: [id number] ++++++++++++++++++++++++++++++++++++ SUMMARY: ++++++++++++++++++++++++++++++++++++ There is no evidence of an acute deep vein thrombosis in any of the major veins of either lower extremity. ++++++++++++++++++++++++++++++++++++ FINDINGS: ++++++++++++++++++++++++++++++++++++ Procedure: Venous duplex imaging of both lower extremities was performed using color flow and spectral Doppler analysis. Study Quality: This study is of adequate technical quality. Bilateral: All vessels seen appear patent and compressible. There was spontaneous and phasic flow seen in all the proximal major veins of both lower extremities. Appropriate augmentation with distal compression. No evidence of reflux with proximal compression. Appropriate augmentation with distal compression. Signed 06/13/2020 02:20 PM Claude Engel MD Nelson Ross MD [facility] ORDERA BLES documented in this encounter Visit Diagnoses Diagnosis Mass of left lower extremity documented in this encounter Care Teams Space Planner Relationship Specialty Start [place] [address] [facility] [address] [place] [address] PCP - General Internal Medicine 03/31/18 05/30/22 Asha Narvaez, SORTER PRICER-SMALL ENGINE TECHNICIAN [address] [facility] [address] [place] [address] PCP - Attributed-MSSP 02/17/20 06/18/20 Etienne Florez MD Orthopedic Surgery 12/09/14 [place] [address] [facility] [address] [place] [address] Oncology 09/15/17 [place] [address] [facility] [address] [place] [address] Neurology 06/26/18 [place] [address] [facility] [address] [place] [address] Cardiovascular Disease 06/26/18 [place] [address] [address] Pulmonary Disease 06/26/18 uYliya Ibarra MD [address] [facility] [address] [place] [address] Endocrinology 06/26/18 Phuong Callejas DPM [address] [place], [place] [address] Podiatry 06/26/18 Sy Barrientos MD [address] [place] [address] [place] [address] Ophthalmology 06/26/18 [place] [address] [address] [address] [place] [address] Pulmonary Disease 06/26/18 Rico Gasca MD [address] [facility] [address] [place] [address] Urology 06/26/18 Elle Landaverde MD [address] [facility] [address] [place] [address] Vascular Surgery 06/26/18 Kirk Truong MD [address] [facility] [address] [place] [address] Gastroenterology 06/26/18 [place] [address] [place] [address] General Surgery 06/26/18 documented as of this encounter
--- OUTSIDE RECORDS SUMMARY | 2024-05-26 12:37 | XMS_ITS | Encounter Summary ---
Author Organization [facility] Address [address] [place] [address] Care Team Providers Care Grocery Store Courtesy Clerk Name Role Phone Etienne Florez MD Unavailable [phone] Enrique Gonzalez MD Unavailable [phone] Theresa Camargo MD Primary Care Provider Nelson Ross MD Unavailable Laz Valencia MD Unavailable Russell Moran MD Unavailable [phone] Yuliya Ibarra MD Unavailable Phuong Callejas DPM Unavailable Sy Barrientos MD Unavailable [phone] Russell Moran MD Unavailable [phone] Rico Gasca MD Unavailable [phone] Elle Landaverde MD Unavailable [phone] Kirk Truong MD Unavailable [phone] Shira Love DO Unavailable [phone] Asha Narvaez APRN-[facility] Unavailable [phone] Reason for Visit * Reason Onset Date Comments Results 05/15/2020 blood tests Encounter Details Date Type Department Care Team (Late st Contact Info) Description 05/15/2020 Telephone [facility] [address] [facility], [address] [place] [address] [place] [address] [facility] [address] [place] [address] Results (blood tests) Social History Tobacco Use Types Packs/Day Years [...] encounter Miscellaneous Notes * Telephone Encounter - Marisol Burroughs, RN - 05/15/2020 11:49 AM CST Results called to patient. She will collect stool samples and submit TRICAL CONTACTS ADJUSTER * Telephone Encounter - Marisol Burroughs RN - 05/15/2020 11:49 AM CST ----- Message from Kirk Truong MD sent at 05/15/2020 9:36 AM ELECTRICAL CONTACTS ADJUSTER ----- Celiac labs and thyroid testing normal follow up on stool studies check with patient for symptomatic update on diarrhea TRICAL CONTACTS ADJUSTER documented in this encounter Plan of Treatment Not on file documented as of this encounter Goals Goal Patient Goal Type Associated Problems Recent Progress Patient-Stated? 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 8:09 AM ELECTRICAL CONTACTS ADJUSTER) No Alisa Jaramillo HEMOGLOBIN A1C < 7.0 Result Component 5.4( 12:00 AM CDT) No Alisa Jaramillo documented as of this encounter Visit Diagnoses Not on filedocumented in this encounter Care Teams Grocery Store Courtesy Clerk Relationship Specialty Start [place] [address] [id number] PCP - General Internal Medicine 03/31/18 05/30/22 Asha Narvaez, PRODUCE SORTER-MIXING PICKER TENDER [address] [facility] [address] [place] [address] PCP - Attributed-MSSP 02/17/20 06/18/20 Etienne Florez MD Orthopedic Surgery 12/09/14 [place] [address] [phone] Oncology 09/15/17 [place] [address] [address] Neurology 06/26/18 [place] [address] [facility] [address] [place] [address] Cardiovascular Disease 06/26/18 [place] [address] [address] Pulmonary Disease 06/26/18 Yuliya Ibarra MD [address] [place] [address] Endocrinology 06/26/18 Phuong Callejas DPM [address] [place], [place] [address] Podiatry 06/26/18 Sy Barrientos MD [address] [place] [address] [place] [address] Ophthalmology 06/26/18 Russell Moran MD [address] [place] [address] Pulmonary Disease 06/26/18 Rico Gasca MD [address] [facility] [address] [place] [address] Urology 06/26/18 Elle Landaverde MD [address] [facility] [address] [place] [address] Vascular Surgery 06/26/18 Kirk Truong MD [address] [facility] [address] [place] [address] Gastroenterology 06/26/18 [place] [address] [place] [address] General Surgery 06/26/18 documented as of this encounter
--- OUTSIDE RECORDS SUMMARY | 2024-05-26 12:37 | XMS_ITS | Encounter Summary ---
Author Organization [facility] Address [address] [facility] [place] [address] Care Team Providers Care Tobacco Sorter Name Role Phone Etienne Florez MD Unavailable Enrique Gonzalez MD Unavailable [phone] Theresa Camargo MD Primary Care Provider Nelson Ross MD Unavailable [phone] Laz Valencia MD Unavailable Russell Moran MD Unavailable Yuliya Ibarra MD Unavailable [phone] Phuong Callejas DPM Unavailable Sy Barrientos MD Unavailable Russell Moran MD Unavailable Rico Gasca MD Unavailable Elle Landaverde MD Unavailable Kirk Truong MD Unavailable Shira Love DO Unavailable [phone] Theresa Camargo MD Unavailable [phone] Encounter Details Date Type Department Care Team (Late st Contact Info) Description 02/11/2020 Orders Only [facility] - Family Medicine [address] [facility] [address] [place] [address] [place] [address] [facility] [address] [place] [address] Serum calcium elevated Social History Tobacco Use Types Packs/Day Years [...] have Coronavirus / COVID-19? No / Unsure 02/08/2020 2:40 PM CDT documented as of this encounter [...] < 140/90 Blood Pressure 127/52(2022 8:09 AM PULMONARY FELLOW) No Ailsa Jaramillo HEMOGLOBIN A1C < 7.0 Result Component 5.4( 12:00 AM CDT) No Alisa Jaramillo documented as of this encounter Visit Diagnoses Diagnosis Serum calcium elevated- Primary Hypercalcemia documented in this encounter Care Teams Tobacco Sorter Relationship Specialty Start [place] [address] [place] [address] PCP - General Internal Medicine 03/31/18 05/30/22 [place] [address] [place] [address] PCP - Attributed-MSSP 11/17/19 02/16/20 Etienne Florez MD Orthopedic Surgery 12/09/14 [place] [address] [facility] [address] [place] [address] Oncology 09/15/17 [place] [address] [facility] [address] [place] [address] Neurology 06/26/18 [place] [address] [facility] [address] [place] [address] Cardiovascular Disease 06/26/18 [place] [address] [address] Pulmonary Disease 06/26/18 Yuliya Ibarra MD [address] [facility] [address] [place] [address] Endocrinology 06/26/18 Phuong Callejas DPM [address] [place] [address] Podiatry 06/26/18 Sy Barrientos MD [address] [place] [address] [place] [address] Ophthalmology 06/26/18 [place] [address] [address] Pulmonary Disease 06/26/18 Rico Gasca MD [address] [address] Urology 06/26/18 Elle Landaverde MD [address] [facility] [address] [place] [address] Vascular Surgery 06/26/18 Kirk Truong MD [address] [address] Gastroenterology 06/26/18 [place] [address] [address] [facility] [address] [place] [address] General Surgery 06/26/18 documented as of this encounter
--- OUTSIDE RECORDS SUMMARY | 2024-05-26 12:37 | XMS_ITS | Encounter Summary ---
Author Organization [facility] Address [address] [facility] [facility] [place] [address] Care Team Providers Care Barking Machine Feeder Name Role Phone Etienne Florez MD Unavailable Enrique Gonzalez MD Unavailable [phone] Theresa Camargo MD Primary Care Provider [phone] Nelson Ross MD Unavailable [phone] Laz Valencia MD Unavailable Russell Moran MD Unavailable Yuliya Ibarra MD Unavailable Phuong Callejas DPM Unavailable [phone] Sy Barrientos MD Unavailable Russell Moran MD Unavailable [phone] Rico Gasca MD Unavailable Elle Landaverde MD Unavailable Kirk Truong MD Unavailable Shira Love DO Unavailable [phone] Theresa Camargo MD Unavailable [phone] Encounter Details Date Type Department Care Team (Late st Contact Info) Description 02/14/2020 Orders Only [facility] [id number] [place] [address] [place] [address] [address] Malignant neoplasm of upper-outer quadrant of left breast in female, estrogen receptor positive (HCC) Social History Tobacco Use Types Packs/Day Years [...] < 140/90 Blood Pressure 127/52(2022 8:09 AM WINDOWS TECHNICAL SPECIALIST) No Alisa Jaramillo HEMOGLOBIN A1C < 7.0 Result Component 5.4( 12:00 AM CDT) No Alisa Jaramillo documented as of this encounter Visit Diagnoses Diagnosis Malignant neoplasm of upper-outer quadrant of left breast in female, estrogen receptor positive (HCC)- Primary documented in this encounter Care Teams Barking Machine Feeder Relationship Specialty [place] [address] [facility] [address] [place] [address] PCP - General Internal Medicine 03/31/18 05/30/22 [place] [address] [facility] [address] [place] [address] PCP - Attributed-MSSP 11/17/19 02/16/20 Etienne Florez MD Orthopedic Surgery 12/09/14 [place] [address] [facility] [address] [place] [phone] Oncology 09/15/17 [place] [address] [facility] [address] [place] [phone] Neurology 06/26/18 [place] [address] [facility] [address] [place] [address] Cardiovascular Disease 06/26/18 [place] [address] [facility] [address] [place] [id number] Pulmonary Disease 06/26/18 Yuliya Ibarra MD [address] [facility] [address] [place] [phone] Endocrinology 06/26/18 Phuong Callejas DPM [address] [place] [address] Podiatry 06/26/18 Sy Barrientos MD [address] [place] [address] [place] [address] Ophthalmology 06/26/18 [place] [address] [id number] Pulmonary Disease 06/26/18 Rico Gasca MD [address] [facility] [address] [place] [address] Urology 06/26/18 Elle Landaverde MD [address] [place] [address] Vascular Surgery 06/26/18 Kirk Truong MD [address] [facility] [address] [place] [address] Gastroenterology 06/26/18 [place] [address] [place] [address] [place] [phone] General Surgery 06/26/18 documented as of this encounter
--- OUTSIDE RECORDS SUMMARY | 2024-05-26 12:37 | XMS_ITS | Encounter Summary ---
Author Organization [facility] Address [address] [facility] [place] [address] Care Team Providers Care Process Mold Technician Name Role Phone Etienne Florez MD Unavailable Enrique Gonzalez MD Unavailable [phone] Theresa Camargo MD Primary Care Provider Nelson Ross MD Unavailable [phone] Laz Valencia MD Unavailable Russell Moran MD Unavailable Yuliya Ibarra MD Unavailable Phuong Callejas DPM Unavailable Sy Barrientos MD Unavailable [phone] Russell Moran MD Unavailable [phone] Rico Gasca MD Unavailable Elle Landaverde MD Unavailable [phone] Kirk Truong MD Unavailable [phone] Shira Love DO Unavailable [phone] Theresa Camargo MD Unavailable [phone] Asha Narvaez PRODUCE SHIPPER-BINDERY OPERATOR Unavailable [phone] Reason for Visit * Reason Comments Fall aches and pains Encounter Details Date Type Department Care Team (Late st Contact Info) Description 08/09/2020 1:45 PM CDT Office Visit [facility] Family Medicine [address] [facility] [address] [place] [address] Brooke Haynes [facility]ENCOM[facility] [address] [facility] [address] [place] [address] Skin lesion (Primary Dx); Fall, initial encounter; Herpes zoster with ophthalmic complication, unspecified herpes zoster eye disease; Bumps on skin Social History Tobacco Use Types Packs/Day Years [...] Sign Reading Time Taken Comments Blood Pressure 110/70 08/09/2020 2:14 PM CDT Pulse 60 08/09/2020 2:14 PM CDT Temperature 36.6 ??C (97.9 ??F) 08/09/2020 2:14 PM CD T Respiratory Rate 12 08/09/2020 2:14 PM CDT Oxygen Saturation - - Inhaled Oxygen Concentration - - Weight 80.3 kg (177 lb) 08/09/2020 2:14 PM CDT Height 165.1 cm (5' 5 ) 08/09/2020 2:14 PM CDT Body Mass Index 29.45 08/09/2020 2:14 PM CDT documented in this encounter Functional [...] * Patient Instructions* Brooke Haynes APRN-CNP - 08/09/2020 2:15 PM CDT This looks like shingles on the forehead to the eye. Starting the antiviral medication, twice a day for a week only Call the eye doctor and tell him it looks like shingles on the forehead to the eye lid on the left Tylenol if needed. This is caused by having chickenpox as a child. After having chickenpox the virus receeds to the spinal column where it resided. After some time the virus can reactivate and travel to the skin via a nerve. This is why it is generally in a strip and unilateral. We are not sure what causes the virus to reactivate. The medication that is prescribed is to contain the virus. You should stay away from children under the age of 1 who have not received their chickenpox vaccine and anyone who has hiv aids or undergoing chemotherapy and/or radiation therapy. Cool compresses are soothing to the skin. Use tylenol for any discomfort that occurs. If this becomes very painful please let us know as we will sometimes prescribed stronger medication. Some people find that zostrix or capsacin cream is soothing to the areas but not on the skin.. The blisters and lesions will sometimes crust over or they can just receed. documented in this encounter Progress Notes * Brooke Haynes APRN-CNP - 08/09/2020 2:21 PM CDT SUBJECTIVE: Perla Leon is a 79 year old female here for: Chief Complaint Patient presents with ??? Fall aches and pains Past Medical History: Diagnosis Date ??? Asthma [...] T1cN0(i-)M0, stage IA. ER pos 97% (strong), MN pos 23% (moderate), Her-2 neg (1+ on [...] diabetes mellitus without complication 01/07/2011 HPI: pt fell on 07-20-2020 and did not complain for 4 days and then started to complain of pain in the head on 07-24-2020. The daughter accompanying her today saw her on 07-26-2020 and she had a bruise onthe top of her head that was tender. Got more red and purple, resolved now. On 07-27-2020 she started to complain of pain the forehead and the neck. She saw cardiology on 07-28-2020 and daughter asked him about the bruise on the head and her neck was hurting and he thought she may have had some neck strain, they felt the neck was swollen on the left. and he sent her for the CT scan at [facility] on 08-02-2020; 08-02-2020 pt saw cardiology and he sent her for CT brain at [facility]: IMPRESSION: 1. ??No evidence of an acute intracranial process. 2. ??Senescent changes, including moderate diffuse cerebral volume loss and moderate chronic microvascular ischemic disease. Sometime after 08-02-2020 she broke out in a rash, bumps on the left side of the forehead. Family thought it may have been some continued dependent bruising from the head bruise, they have pictures. Daughter called a friend who comes by daily to see when the rash broke out. Greater than 3 days but less than a week. Report mother wears a cpap machine and took pictures of what the straps look like on. Looks more like shingles. Denies any other joint, extremities pain. Neck is tolerable.. Review of systems negative except as noted in the HPI Family and social history on file and reviewed. Current Outpatient Medications on File Prior to Visit Medication Sig Dispense Refill ??? albuterol HFA (PROAIR HFA) 108 (90 BASE) MCG/ACT inhaler Take 2 Puffs by mouth every 4 hours asneeded. ??? amitriptyline (ELAVIL) 25 MG tablet Take 2 tablets at bedtime 60 tablet 5 ??? 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 aspirin (ASPIRIN) 81 MG tablet Take 81 mg by mouth once daily ??? BD PEN NEEDLE HAYDEN U/F 32G [...] 1 TABLET (50 MCG) BY MOUTH DAILY GLUING PRESSMAN. ??? menthol-zinc oxide (CALMOSEPTINE) 0.44-20.6 % ointment Apply to affected area as needed for Other ??? metOLazone (ZAROXOLYN) 2.5 MG tablet Take 2.5 mg by mouth Take 1 tab twice a week on Friday and ??? multivitamin with iron (ONE A DAY WITH IRON) tablet Take 1 Tab by mouth once daily. ??? nystatin (MYCOSTATIN) 979283 UNIT/GM powder Apply to affected area 2 times daily 60 g 0 ??? nystatin-triamcinolone (MYCOLOG) 114659-1.1 UNIT/GM-% cream Apply to affected area 2 [...] needed (catheter not draining) 500 mL 3 No current facility-administered medications on file prior [...] Alcohol/week: 0.0 standard drinks . OBJECTIVE: Vitals: 08/09/20 1414 BP: 110/70 Pulse: 60 Resp: 12 Temp: 97.9 ??F (36.6 ??C) Weight: 80.3 kg (177 lb) Height: 1.651 m (5' 5 ) Body mass index is 29.45 kg/m??. CrCl 49 General appearance - alert, well appearing, and [...] in the head, neck nor supraclavicular region. No swelling from my standpoint, no pain turning neck side to side. There are some fat pads. Lungs - unlabored, clear to auscultation, no [...] warm, dry, no rashes in visible areas. The left forehead has 3 clumped bumps on red base proximally, distally over the eyebrow there is a single red based scabbed lesion, on the left upper eyelid there are 3 bumps/bliters on red base, inner canthus to under the eye lid is red. Neuro - PERRLA, CN ll through Xll intact. ASSESSMENT Encounter Diagnoses Name Primary? Fall, initial encounter Yes ??? Herpes zoster with ophthalmic complication, unspecified herpes zoster eye disease PLAN:2 copies of the AVS provided to daughter. Orders Placed This Encounter ??? valACYclovir (VALTREX) 1 GM tablet Sig: Take 1 (one) tablet by mouth 2 times daily for 7 days Dispense: 14 tablet Refill: 0 CrCl 49. This looks like shingles on the forehead to the eye. Starting the antiviral medication, twice a day for a week only Call the eye doctor and tell him it looks like shingles on the forehead to the eye lid on the left Tylenol if needed. This is caused by having chickenpox as a child. After having chickenpox the virus receeds to the spinal column where it resided. After some time the virus can reactivate and travel to the skin via a nerve. This is why it is generally in a strip and unilateral. We are not sure what causes the virus to reactivate. The medication that is prescribed is to contain the virus. You should stay away from children under the age of 1 who have not received their chickenpox vaccine and anyone who has hiv aids or undergoing chemotherapy and/or radiation therapy. Cool compresses are soothing to the skin. Use tylenol for any discomfort that occurs. If this becomes very painful please let us know as we will sometimes prescribed stronger medication. Some people find that zostrix or capsacin cream is soothing to the areas but not on the skin.. The blisters and lesions will sometimes crust over or they can just receed. Further recommendations pending the above results and patient's clinical course. Follow-up visit 1 week prn, 10-23-2020 is next appt. The patient indicates understanding of these issues and agrees with the plan. documented in this encounter Plan of Treatment Not on file documented as of this encounter Goals Goal Patient Goal Type Associated Problems Recent Progress Patient-Stated? 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 8:09 AM DIRECTOR BIOLOGY) No YeceniaAlisa marks HEMOGLOBIN A1C < 7.0 Result Component 5.4( 12:00 AM CDT) No AllisonflorentinoAmber marksAlisa documented as of this encounter Visit Diagnoses Diagnosis Skin lesion- Primary Unspecified disorder of skin and subcutaneous tissue Fall, initial encounter Herpes zoster with ophthalmic complication, unspecified herpes zoster eye disease Bumps on skin Unspecified disorder of skin and subcutaneous tissue documented in this encounter Care Teams Process Mold Technician Relationship Specialty [place] [address] [employer] [address] [place], [place] [id number] PCP - General Internal Medicine 03/31/18 05/30/22 [place] [address] [facility] [address] [place] [address] PCP - Attributed-MSSP 06/19/20 08/16/20 Asha Narvaez, PRODUCE SHIPPER-BINDERY OPERATOR [address] [place] [address] PCP - Attributed-MSSP 08/17/20 10/16/20 Etienne Florez MD Orthopedic Surgery 12/09/14 [place] [address] [employer] [employer] [address] [place] [phone] Oncology 09/15/17 [place] [address] [employer] [address] [phone] Neurology 06/26/18 [place] [address] [facility] [address] [place] [phone] Cardiovascular Disease 06/26/18 [place] [address] [address] Pulmonary Disease 06/26/18 Yuliya Ibarra MD [address] [address] [place] [phone] Endocrinology 06/26/18 Phuong Callejas DPM [address] [place], [place] [id number] Podiatry 06/26/18 Sy Barrientos MD [address] [place], [place] [address] [address] Ophthalmology 06/26/18 [place] [address] [phone] Pulmonary Disease 06/26/18 Rico Gasca MD [address] [facility] [address], [place] [address] Urology 06/26/18 Elle Landaverde MD [address] [facility] [address], [place] [address] Vascular Surgery 06/26/18 Kirk Truong MD [address] [facility] [address] [place] [address] Gastroenterology 06/26/18 [place] [address] [address] [address] General Surgery 06/26/18 documented as of this encounter
--- OUTSIDE RECORDS SUMMARY | 2024-05-26 12:37 | XMS_ITS | Encounter Summary ---
Author Organization [facility] Address [address] [facility] [facility] [place] [address] Care Team Providers Care Rubber Belt Splicer Name Role Phone Etienne Florez MD Unavailable [phone] Enrique Gonzalez MD Unavailable [phone] Theresa Camargo MD Primary Care Provider [phone] Nelson Ross MD Unavailable [phone] Laz Valencia MD Unavailable Russell Moran MD Unavailable [phone] Yuliya Ibarra MD Unavailable Phuong Callejas DPM Unavailable Sy Barrientos MD Unavailable Russell Moran MD Unavailable Rico Gasca MD Unavailable Elle Landaverde MD Unavailable Kirk Truong MD Unavailable [phone] Shira Love Unavailable [phone] Asha Narvaez REAL ESTATE COORDINATOR-ROOF SERVICE TECHNICIAN Unavailable [phone] Reason for Visit * Reason Comments Pain Abdominal Encounter Details Date Type Department Care Team (Late st Contact Info) Description 03/30/2020 9:20 AM RADIAL ROUTER OPERATOR Office Visit [facility] [address] [facility] [address] [place] [address] [facility]ny [facility]esteros [facility] [address] [facility] [address] [place] [address] Essential hypertension (Primary Dx); Atrial fibrillation, unspecified type (HCC); Low potassium syndrome; Vitamin D deficiency; Weakness; Hypokalemia; Type 2 diabetes mellitus without complication, with long-term current use of insulin (HCC) Social History Tobacco Use Types Packs/Day [...] COVID-19? No / Unsure 03/30/2020 10:14 AM RADIAL ROUTER OPERATOR documented as of this encounter Last Filed Vital Signs Vital Sign Reading Time Taken Comments Blood Pressure 118/76 03/30/2020 9:49 AM RADIAL ROUTER OPERATOR Pulse 74 03/30/2020 9:49 AM RADIAL ROUTER OPERATOR Temperature 36.4 ??C (97.5 ??F) 03/30/2020 9:49 AM CS T Respiratory Rate - - Oxygen Saturation - - Inhaled Oxygen Concentration - - Weight 78.9 kg (174 lb) 03/30/2020 9:49 AM RADIAL ROUTER OPERATOR Height - - Body Mass Index 28.96 02/11/2020 11:10 AM CDT documented in this encounter Functional [...] this encounter Patient Instructions * Patient Instructions* Bonny Ballesteros APRN-CNP - 03/30/2020 9:55 AM RADIAL ROUTER OPERATOR Increase water intake to 6-8 glasses of water per day Get blood work joceline with [facility] Set up a follow up in urology [address] [place] [address] Driving Directions Follow up in 05/2020 for wellness visit and follow up with Dr. Camargo AL ROUTER OPERATOR documented in this encounter Progress Notes * Bonny Ballesteros APRN-CNP - 03/30/2020 9:20 AM CST SUBJECTIVE: Perla Leon is a 79 year old female with Chief Complaint Patient presents with ??? Pain Abdominal Past Medical History: Diagnosis Date ??? Asthma [...] T1cN0(i-)M0, stage IA. ER pos 97% (strong), RI pos 23% (moderate), Her-2 neg (1+ on [...] Not on file Occupational History ??? 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 Smoking status: [...] ??? CAD (Coronary Artery Disease) Brother CHF HPI: Patient was in today for a medicare wellness visit but wanted to change this to a sick visit due to several issues she has been having over the past few weeks. She is in today with her daughter. She reports she is having some abdomen bloating- no pain. She reports she is had diarrhea on Friday, Friday and Friday. Yesterday her stool was formed but small. She does have IBS and has had it for many years. She reports nausea for the past 2 weeks. No headache. No syncope. She reports she is drinking 2 glasses of ice tea per day and 2 bottles of water per day She reports she is supposed to take the Miralax for the IBS. She will continue with this. No fevers No chills. No blood in stool. She reports she is having some weakness again. This often happens when her Potassium gets low. She is over due for lab work. I will fax the lab orders to home nurse today. Patient denies chest pain, no syncope and headache. No cough or wheezing. Vitals and weight are stable. No issues with sleep. Mood is good. Patient needs to update lab testing. She reports she is not using her C-pap faithfully. She will work hard to improve this. She reports she did have some shortness of breath over the past week but she used her albuterol inhaler twice a day for 3 days and it resolved. Her urologist left the practice. She needs to get set up with someone else to manage her catheter. I provided names to them today. She reports she is feeling better today than she has in the past 2 weeks. She reports she is keeping up with her follow up visits with Endo and Cardiology. She recently saw cardiology to make sure it was not her A.fib making her feel bad. She was told it was under good control. She does have some mild edema in her legs. No pitting. She reports she has been using her lymphedema pump daily and this improves the edema. Review of Systems: per HPI Current Outpatient Medications Medication ??? albuterol HFA (PROAIR HFA) 108 (90 BASE) MCG/ACT inhaler ??? amitriptyline (ELAVIL) 25 MG tablet ??? anastrozole (ARIMIDEX) 1 MG tablet ??? aspirin (ASPIRIN) 81 MG tablet ??? calcium carbonate-vitamin D (CALTRATE 600+D) 600-400 MG-UNIT tablet ??? canagliflozin (INVOKANA) 100 MG tablet ??? clopidogrel (PLAVIX) 75 MG tablet ??? Cranberry-Vitamin C (AZO CRANBERRY URINARY TRACT) 250-60 MG ??? Cyanocobalamin (B-12) 1000 MCG TBCR ??? dorzolamide (TRUSOPT) 2 % ophthalmic solution ??? empagliflozin (JARDIANCE) 10 MG tablet ??? esomeprazole (NEXIUM) 40 MG capsule ??? FLECAINIDE ACETATE PO ??? furosemide (LASIX) 40 MG tablet ??? glimepiride (AMARYL) 1 MG tablet ??? hydroxypropyl methylcellulose 0.3% (SYSTANE OVERNIGHT THERAPY) 0.3 % ophthalmic gel ??? latanoprost (XALATAN) 0.005 % ophthalmic solution ??? levothyroxine (SYNTHROID) 25 MCG tablet ??? menthol-zinc oxide (CALMOSEPTINE) 0.44-20.6 % ointment ??? metOLazone (ZAROXOLYN) 2.5 MG tablet ??? multivitamin with iron (ONE A DAY WITH IRON) tablet ??? nystatin (MYCOSTATIN) 489477 UNIT/GM powder ??? nystatin-triamcinolone (MYCOLOG) 438210-0.1 UNIT/GM-% cream ??? polyethyl glycol-propyl glycol (SYSTANE) 0.4-0.3 % ophth solution ??? polyethylene glycol 3350 (MIRALAX) packet ??? potassium chloride ER (KLOR-CON) 20 MEQ tablet ??? PROLENSA 0.07 % opthalmic solution ??? rosuvastatin (CRESTOR) 10 MG tablet ??? sitaGLIPtin (JANUVIA) 50 MG tablet ??? spironolactone (ALDACTONE) 25 MG tablet ??? verapamil SR 24hr (VERELAN) 120 MG capsule ??? Water For Irrigation, Sterile No current facility-administered medications for this visit. OBJECTIVE: Wt Readings from Last 3 Encounters: 03/30/20 78.9 kg (174 lb) 02/11/20 81.2 kg (179 lb) 12/09/19 81.6 kg (180 lb) Temp Readings from Last 3 Encounters: 03/30/20 97.5 ??F (36.4 ??C) (Temporal) 11/26/19 97.6 ??F (36.4 ??C) (Temporal) 11/23/19 98.2 ??F (36.8 ??C) (Oral) BP Readings from Last 3 Encounters: 03/30/20 118/76 02/11/20 128/72 12/09/19 106/60 Pulse Readings from Last 3 Encounters: 03/30/20 74 12/09/19 80 11/26/19 73 General: alert, cooperative, no distress, oriented to [...] or gallops Lungs: clear to auscultation bilaterally Abdomen: soft without mass, non-tender, with normal bowel sounds Extremities: no clubbing, cyanosis or + mild non pitting edema in both feet Neuro: negative findings: alert, oriented x3 speech normal in context and clarity memory intact grossly cranial nerves II-XII intact no involuntary movements - tremors sensation: intact to pain, and light touch gait: normal reflexes: full and symmetric Recent Labs Component Name 12/30/19 1111 11/26/19 0945 11/26/19 0855 03/05/19 1300 11/06/18 1043 11/06/18 1043 SODIUM 134* 139 139 141 - 144 POTASSIUM 3.5 3.7 4.0 3.1* - 3.6 CHLORIDE 92* 100 99 102 - 105 CO2 31 29 30 28 - 30 BUN 32* 26* 27* 14 - 18 CREATININE 1.05* 1.00 1.03 0.81 - 0.66 GLUCOSE 191* 142* 149* 195* - 82 CALCIUM 11.3* 11.3* 11.6* 10.4* - 10.5* ALBUMIN - 4.0 - 3.9 - 3.9 ALKPHOS - 93 - 95 - 75 ALT - 22 - 20 - 16 AST - 17 - - 15 TBIL - 0.3 - 0.3 - 0.2 TPROT - 7.0 - 6.2* - 6.1* EGFR 50* 53 52 >60 - >60 - = values in [...] 6.4* 5.3 7.0* Recent Labs Component Name 11/26/19 0855 11/06/18 1043 05/02/17 TSH 2.812 2.9182 5.24 Recent Labs Component Name 11/26/19 0855 03/05/19 1302 11/06/18 1043 [id number] 28.5* 28.4* 28.5* HEALTH MAINTENANCE: Health Maintenance Topic Date Due ??? ZOSTER VACCINE (2 of 3) 10/19/2007 ??? DIABETES-FOOT EXAM WITH MONOFILAMENT 03/19/2019 ??? DIABETES-HGB A1C 09/04/2019 ??? ANNUAL MEDICARE WELLNESS VISIT 01/05/2020 ??? DEPRESSION SCREENING 11/25/2020 ??? DIABETES-EYE EXAM 12/29/2020 ??? MAMMOGRAM 02/22/2021 ??? HCC (Chart Reviewer Use Only) 03/22/2021 ??? DTAP/TDAP/TD VACCINES (4 - Td) 08/29/2025 ??? COLON CA SCREENING 02/17/2029 ??? PNEUMOCOCCAL VACCINE 65+ Completed ??? INFLUENZA VACCINE Completed ??? BONE DENSITY TESTING Completed ??? PNEUMOCOCCAL VACCINE Aged Out ??? HIB VACCINE Aged Out ??? MENINGOCOCCAL VACCINE Aged Out ASSESSMENT: ICD-10-CM 1. Essential hypertension I10 2. Atrial fibrillation, unspecified type I48.91 3. Low potassium syndrome E87.6 COMPREHENSIVE METABOLIC PANEL 4. Vitamin D deficiency E55.9 VITAMIN D 25-HYDROXY 5. Weakness R53.1 CBC WITH DIFFERENTIAL 6. Hypokalemia E87.6 7. Type 2 diabetes mellitus without complication, with long-term current use of insulin E11.9 HEMOGLOBIN A1C W EAG Z79.4 PLAN: Orders Placed This Encounter ??? CBC WITH DIFFERENTIAL Order Specific Question: Release to patient Answer: Immediate ??? COMPREHENSIVE METABOLIC PANEL ??? VITAMIN D 25-HYDROXY Order Specific Question: Release to patient Answer: Immediate ??? HEMOGLOBIN A1C W EAG Order Specific Question: Release to patient Answer: Immediate I spoke to [facility] health at [phone]. I have faxed the lab orders to [phone]. The home nurse will go out and draw her lab work in the am for us. I have RS'd her medicare wellness visit for 05/2020 after her visit with Dr. Camargo. Patient instructions: Increase water intake to 6-8 glasses of water per day Get blood work joceline with [facility] Set up a follow up in urology [address] [place] [address] Driving Directions Follow up in 05/2020 for wellness visit and follow up with Dr. Camargo AL ROUTER OPERATOR documented in this encounter Plan of Treatment Scheduled Orders Name Type Priority Associated Diagnoses Orde r Schedule CBC WITH DIFFERENTIAL Lab STAT Weakness Ordered: 03/30/2020 COMPREHENSIVE METABOLIC PANEL Lab STAT Low potassium syndrome Ordered: 03/30/2020 VITAMIN D 25-HYDROXY Lab STAT Vitamin D deficiency Ordered: 03/30/2020 HEMOGLOBIN A1C W EAG Lab Routine Type 2 diabetes mellitus without complication, with long-term current use of insulin (HCC) Ordered: 03/30/2020 documented as of this encounter Goals Goal Patient Goal Type Associated Problems Recent Progress Patient-Stated? 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 8:09 AM RADIAL ROUTER OPERATOR) No Alisa Jaramillo HEMOGLOBIN A1C < 7.0 Result Component 5.4( 12:00 AM CDT) No Alisa Jaramillo documented as of this encounter Visit Diagnoses Diagnosis Essential hypertension- Primary Atrial fibrillation, unspecified type (HCC) Low potassium syndrome Hypopotassemia Vitamin D deficiency Weakness Other malaise and fatigue Hypokalemia Hypopotassemia Type 2 diabetes mellitus without complication, with long-term current use of insulin (HCC) documented in this encounter Care Teams Rubber Belt Splicer Relationship Specialty [place] [address] [facility] [address] [place] [address] PCP - General Internal Medicine 03/31/18 05/30/22 Asha Narvaez, REAL ESTATE COORDINATOR-ROOF SERVICE TECHNICIAN [address] [facility] [address] [place] [address] PCP - Attributed-MSSP 02/17/20 06/18/20 Etienne Florez MD Orthopedic Surgery 12/09/14 [place] [address] [facility] [address] [place] [phone] Oncology 09/15/17 [place] [address] [facility] [address] [place] [phone] Neurology 06/26/18 [place] [address] [facility] [address] [place] [phone] Cardiovascular Disease 06/26/18 [place] [address] [address] Pulmonary Disease 06/26/18 Yuliya Ibarra MD [address] [facility] [address] [place] [phone] Endocrinology 06/26/18 Phuong Callejas DPM [address] [place] [address] Podiatry 06/26/18 Sy Barrientos MD [address] [place] [address] [place] [address] Ophthalmology 06/26/18 [place] [address] [address] Pulmonary Disease 06/26/18 Rico Gasca MD [address] [address] [facility] [address] [place] [address] Urology 06/26/18 Elle Landaverde MD [address] [facility] [address] [place] [address] Vascular Surgery 06/26/18 Kirk Truong MD [address] [place] [address] [address] [place] [phone] Gastroenterology 06/26/18 [place] [address] [phone] General Surgery 06/26/18 documented as of this encounter
--- OUTSIDE RECORDS SUMMARY | 2024-05-26 12:37 | XMS_ITS | Encounter Summary ---
Author Organization [facility] Address [address] [facility] [address] Care Team Providers Care Email Marketing Assistant Name Role Phone Etienne Florez MD Unavailable [phone] Enrique Gonzalez MD Unavailable [phone] Theresa Camargo MD Primary Care Provider [phone] Nelson Ross MD Unavailable Laz Valencia MD Unavailable Russell Moran MD Unavailable [phone] Yuliya Ibarra MD Unavailable Phuong Callejas DPM Unavailable Sy Barrientos MD Unavailable Russell Moran MD Unavailable Rico Gasca MD Unavailable [phone] Elle Landaverde MD Unavailable Kirk Truong MD Unavailable [phone] Shira Love DO Unavailable [phone] Asha Narvaez [facility] Unavailable [phone] Reason for Visit * Reason Onset Date Comments Results 05/30/2020 stool studies Encounter Details Date Type Department Care Team (Late st Contact Info) Description 05/30/2020 Telephone [facility] [address] [facility] [address] [place] [address] [place] [address] [facility] [address] [place] [address] Results (stool studies) Social History Tobacco Use Types Packs/Day Years [...] COVID-19? No / Unsure 05/22/2020 8:21 AM GROMMET MAN documented as of this encounter Functional Status [...] Miscellaneous Notes * Telephone Encounter - Marisol Burroughs RN - 05/30/2020 10:01 AM CST Results called to patient. States is not experiencing any diarrhea at this time MET MAN * Telephone Encounter - Marisol Burroughs RN - 05/30/2020 10:01 AM CST ----- Message from Kirk Truong MD sent at 05/29/2020 9:48 PM GROMMET MAN ----- Stool studies all negative for infection Fecal lactoferrin negative Rec Telemed or OV for follow up if still having diarrhea or fecal incontinence MET MAN documented in this encounter Plan of Treatment Not on file documented as of this encounter Goals Goal Patient Goal Type Associated Problems Recent Progress Patient-Stated? 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 8:09 AM GROMMET MAN) No Alisa Jaramillo HEMOGLOBIN A1C < 7.0 Result Component 5.4( 12:00 AM CDT) No Alsia Jaramillo documented as of this encounter Visit Diagnoses Not on filedocumented in this encounter Care Teams Email Marketing Assistant Relationship Specialty [place] [address] [employer] [address] [place] [address] PCP - General Internal Medicine 03/31/18 05/30/22 Asha Narvaez, NAPPER RUNNER-BALLAST CLEANING MACHINE OPERATOR [address] [employer] [address] [place] [address] PCP - Attributed-MSSP 02/17/20 06/18/20 Etienne Florez MD Orthopedic Surgery 12/09/14 [place] [address] [employer] [address] [place] [address] Oncology 09/15/17 [place] [address] [employer] [address] [place] [address] Neurology 06/26/18 [place] [address] [facility] [address] [place] [address] Cardiovascular Disease 06/26/18 [place] [address] [facility] [address] [place] [address] Pulmonary Disease 06/26/18 Yuliya Ibarra MD [address] [facility] [address] [place] [address] Endocrinology 06/26/18 Phuong Callejas DPM [address] [place] [address] Podiatry 06/26/18 Sy Barrientos MD [address] [place] [address] [place] [address] Ophthalmology 06/26/18 [place] [address] [address] [place] [address] Pulmonary Disease 06/26/18 Rico Gasca MD [address] [place] [address] Urology 06/26/18 Elle Landaverde MD [address] [place] [address] Vascular Surgery 06/26/18 Kirk Truong MD [address] [facility] [address] [place] [address] Gastroenterology 06/26/18 [place] [address] [address] [place] [phone] General Surgery 06/26/18 documented as of this encounter
--- OUTSIDE RECORDS SUMMARY | 2024-05-26 12:37 | XMS_ITS | Encounter Summary ---
Author Organization [facility] Address [address] [place] [address] Care Team Providers Care Consulting Marine Engineer Name Role Phone Etienne Florez MD Unavailable Enrique Gonzalez MD Unavailable [phone] Theresa Camargo MD Primary Care Provider Nelson Ross MD Unavailable [phone] Laz Valencia MD Unavailable Russell Moran MD Unavailable Yuliya Ibarra MD Unavailable Phuong Callejas DPM Unavailable Sy Barrientos MD Unavailable Russell Moran MD Unavailable Rico Gasca MD Unavailable Elle Landaverde MD Unavailable Kirk Truong MD Unavailable [phone] Shira Love DO Unavailable [phone] Asha Narvaez [facility] Unavailable [phone] Reason for Visit * Reason Onset Date Comments Opened In Error 05/03/2020 Encounter Details Date Type Department Care Team (Late st Contact Info) Description 05/03/2020 Telephone [facility] [address] [facility] [address] [place] [address] [place] [address] [facility] [address] [place] [address] Opened In Error Social History Tobacco Use Types Packs/Day Years [...] encounter Miscellaneous Notes * Telephone Encounter - Candice Wan - 05/03/2020 1:25 PM CST Requested Prescriptions Pending Prescriptions Disp Refills ??? rosuvastatin (CRESTOR) 10 MG tablet 90 tablet 2 Sig: Take 1 tablet by mouth at bedtime ??? clopidogrel (PLAVIX) 75 MG tablet 90 tablet 4 Sig: Take 1 tablet by mouth at bedtime Last OV: 03/30/20 Upcomings OV: 05/22/20 Last Refill: clopidrogrel 05/03/ ING TOBACCO PACKER HAND documented in this encounter Plan of Treatment Not on file documented as of this encounter Goals Goal Patient Goal Type Associated Problems Recent Progress Patient-Stated? 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 8:09 AM SMOKING TOBACCO PACKER HAND) No YeceniaAlisa marks HEMOGLOBIN A1C < 7.0 Result Component 5.4( 12:00 AM CDT) No Alisa Jaramillo documented as of this encounter Visit Diagnoses Not on filedocumented in this encounter Care Teams Consulting Marine Engineer Relationship Specialty [place] [address] [facility] [address] [place], [place] [address] PCP - General Internal Medicine 03/31/18 05/30/22 Asha Narvaez APRN-CREDIT ADMINISTRATION OFFICER [address] [facility] [address] [place] [address] PCP - Attributed-MSSP 02/17/20 06/18/20 Etienne Florez MD Orthopedic Surgery 12/09/14 [place] [address] [facility] [address] [place] [address] Oncology 09/15/17 [place] [address] [facility] [address] [place] [phone] Neurology 06/26/18 [place] [address] [facility] [address] [place] [phone] Cardiovascular Disease 06/26/18 [place] [address] [address] Pulmonary Disease 06/26/18 Yuliya Ibarra MD [address] [place] [address] Endocrinology 06/26/18 Phuong Callejas DPM [address] [place] [address] Podiatry 06/26/18 Sy Barrientos MD [address] [place] [address] [place] [address] Ophthalmology 06/26/18 [place] [address] [address] Pulmonary Disease 06/26/18 Rico Gasca MD [address] [facility] [address] [place] [address] Urology 06/26/18 Elle Landaverde MD [address] [facility] [address] [place] [address] Vascular Surgery 06/26/18 Kirk Truong MD [address] [facility] [address] [place] [address] Gastroenterology 06/26/18 [place] [address] [place] [phone] General Surgery 06/26/18 documented as of this encounter
--- OUTSIDE RECORDS SUMMARY | 2024-05-26 12:37 | XMS_ITS | Encounter Summary ---
Author Organization [facility] Address [address] [place] [address] Care Team Providers Care Pattern Hand Name Role Phone Etienne Florez MD Unavailable Enrique Gonzalez MD Unavailable [phone] Theresa Camargo MD Primary Care Provider Nelson Ross MD Unavailable [phone] Laz Valencia MD Unavailable Russell Moran MD Unavailable [phone] Yuliya Ibarra MD Unavailable Phuong Callejas DPM Unavailable Sy Barrientos MD Unavailable [phone] Russell Moran MD Unavailable Rico Gasca MD Unavailable Elle Landaverde MD Unavailable Kirk Truong MD Unavailable [phone] Shira Love DO Unavailable [phone] Asha Narvaez [facility] Unavailable [phone] Reason for Visit * Reason Onset Date Comments MEDICATION REFILL 03/13/2020 Encounter Details Date Type Department Care Team (Late st Contact Info) Description 03/13/2020 Refill [facility] Neurosciences [address] [facility] [address] [place] [address] [place] [address] [facility] [address] [place] [address] MEDICATION REFILL Social History Tobacco Use Types [...] encounter Miscellaneous Notes * Telephone Encounter - Nikki Wan - 03/13/2020 2:35 PM CDT I attempted to reach the patient's daughter Ange who was not available. LMOM informing of medication status. * Telephone Encounter - Nikki Wan - 03/13/2020 10:29 AM CDT Received a call from the patient's daughter who states they have requested a refill of the patient Amitriptyline to be sent to there local pharmacy. States she has requested refill from express script but it will take 10days to ship. Last refill 06-29-19 Last OV 12-09-19 documented in this encounter Plan of Treatment Not on file documented as of this encounter Goals Goal Patient Goal Type Associated Problems Recent Progress Patient-Stated? 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 8:09 AM CORN GROWER) No Alisa Jaramillo HEMOGLOBIN A1C < 7.0 Result Component 5.4( 12:00 AM CDT) No Alisa Jaramillo documented as of this encounter Visit Diagnoses Not on filedocumented in this encounter Care Teams Pattern Hand Relationship Specialty [place] [address] [facility] [address] [place] [address] PCP - General Internal Medicine 03/31/18 05/30/22 Asha Narvaez, PRICE LISTER-WAD PRINTING MACHINE OPERATOR [address] [facility] [address] [place] [address] PCP - Attributed-MSSP 02/17/20 06/18/20 Etienne Florez MD Orthopedic Surgery 12/09/14 [place] [address] [address] Oncology 09/15/17 [place] [address] [phone] Neurology 06/26/18 [place] [address] [facility] [address] [place] [address] Cardiovascular Disease 06/26/18 Russell Moran MD [address] [place] [id number] Pulmonary Disease 06/26/18 Yuliya Ibarra MD [address] [place] [address] Endocrinology 06/26/18 Phuong Callejas DPM [address] [place], [place] [id number] Podiatry 06/26/18 Sy Barrientos MD [address] [place] [address] [place] [address] Ophthalmology 06/26/18 Russell Moran MD [address] [place], [place] [id number] Pulmonary Disease 06/26/18 Rico Gasca MD [address] [place] [address] Urology 06/26/18 Elle Landaverde MD [address] [place] [address] Vascular Surgery 06/26/18 Kirk Truong MD [address] [place] [address] Gastroenterology 06/26/18 [place] [address] [address] General Surgery 06/26/18 documented as of this encounter
--- OUTSIDE RECORDS SUMMARY | 2024-05-26 12:37 | XMS_ITS | Encounter Summary ---
Author Organization [facility] Address [address] [place] [address] Care Team Providers Care Research Fellow Name Role Phone Etienne Florez MD Unavailable [phone] Enrique Gonzalez MD Unavailable [phone] Theresa Camargo MD Primary Care Provider [phone] Nelson Ross MD Unavailable Laz Valencia MD Unavailable Russell Moran MD Unavailable Yuliya Ibarra MD Unavailable Phuong Callejas DPM Unavailable Sy Barrientos MD Unavailable Russell Moran MD Unavailable Rico Gasca MD Unavailable Elle Landaverde MD Unavailable [phone] Kirk Truong MD Unavailable [phone] Shira Love DO Unavailable [phone] Asha Narvaez VEGETABLE TRIMMER-[facility] Unavailable [phone] Encounter Details Date Type Department Care Team (Late st Contact Info) Description 06/07/2020 Orders Only [facility] - DECORATOR [place] [address] [facility], [address] [place] [address] Raghu Bautista MD [facility] [address] [place] [address] Need for vaccination Social History Tobacco Use [...] COVID-19? No / Unsure 05/30/2020 12:11 PM RN TRANSFER documented as of this encounter Functional Status [...] 140/90 Blood Pressure 127/52(2022 8:09 AM RN TRANSFER) No Alisa Jaramillo HEMOGLOBIN A1C < 7.0 Result Component 5.4( 12:00 AM CDT) No Alisa Jaramillo documented as of this encounter Visit Diagnoses Diagnosis Need for vaccination Need for prophylactic vaccination and inoculation against unspecified single disease documented in this encounter Care Teams Research Fellow Relationship Specialty [place] [address] [facility] [address] [place] [address] PCP - General Internal Medicine 03/31/18 05/30/22 Asha Narvaez, VEGETABLE TRIMMER-FISHING FLOATS ASSEMBLER [address] [facility] [address] [place] [address] PCP - Attributed-MSSP 02/17/20 06/18/20 Etienne Florez MD Orthopedic Surgery 12/09/14 [place] [address] [facility] [address] [place] [address] Oncology 09/15/17 [place] [address] [facility] [address] [place] [address] Neurology 06/26/18 [place] [address] [facility] [address] [place] [address] Cardiovascular Disease 06/26/18 [place] [address] [id number] Pulmonary Disease 06/26/18 Yuliya Ibarra MD [address] [facility] [address] [place] [address] Endocrinology 06/26/18 Phuong Callejas DPM [address] [place] [address] Podiatry 06/26/18 Sy Barrientos MD [address] [place] [address] Ophthalmology 06/26/18 [place] [address] [id number] Pulmonary Disease 06/26/18 Rico Gasca MD [address] [facility] [address] [place] [address] Urology 06/26/18 Elle Landaverde MD [address] [facility] [address] [place] [address] Vascular Surgery 06/26/18 Kirk Truong MD [address] [facility] [address] [place] [address] Gastroenterology 06/26/18 [place] [address] [place] [address] General Surgery 06/26/18 documented as of this encounter
--- OUTSIDE RECORDS SUMMARY | 2024-05-26 12:37 | XMS_ITS | Encounter Summary ---
Author Organization [facility] Address [address] [place] [address] Care Team Providers Care [employer] Executive Director Name Role Phone Etienne Florez MD Unavailable Enrique Gonzalez MD Unavailable [phone] Theresa Camargo MD Primary Care Provider Nelson Ross MD Unavailable Laz Valencia MD Unavailable Russell Moran MD Unavailable Yuliya Ibarra MD Unavailable Phuong Callejas DPM Unavailable [phone] Sy Barrientos MD Unavailable [phone] Russell Moran MD Unavailable [phone] Rico Gasac MD Unavailable [phone] Elle Landaverde MD Unavailable [phone] iKrk Truong MD Unavailable [phone] Shira Love DO Unavailable [phone] hTeresa Camargo MD Unavailable [phone] Reason for Visit * Reason Onset Date Comments Update 07/07/2020 Encounter Details Date Type Department Care Team (Late st Contact Info) Description 07/07/2020 Telephone [facility] [address] [facility], [address] [place] [address] [place] [address] [facility] [address] [place] [address] Update Social History Tobacco Use Types Packs/Day [...] COVID-19? No / Unsure 06/13/2020 11:38 AM MANAGER FRAUD documented as of this encounter Functional Status [...] Telephone Encounter - Marisol Burroughs RN - 07/07/2020 2:53 PM CST Patient called bowel pattern has improved with stopping Miralax and starting Benefiber. Will continue Benefiber and call if any problems. GER FRAUD documented in this encounter Plan of Treatment Not on file documented as of this encounter Goals Goal Patient Goal Type Associated Problems Recent Progress Patient-Stated? 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 8:09 AM MANAGER FRAUD) No YeceniaAlisa marks HEMOGLOBIN A1C < 7.0 Result Component 5.4( 12:00 AM CDT) No Clint Alisa documented as of this encounter Visit Diagnoses Not on filedocumented in this encounter Care Teams [employer] Executive Director Relationship Specialty [place] [address] [facility] [address] [place] [address] PCP - General Internal Medicine 03/31/18 05/30/22 [place] [address] [facility] [address] [place] [address] PCP - Attributed-MSSP 06/19/20 08/16/20 Etienne Florez MD Orthopedic Surgery 12/09/14 [place] [address] [phone] Oncology 09/15/17 [place] [address] [phone] Neurology 06/26/18 [place] [address] [phone] Cardiovascular Disease 06/26/18 [place] [address] [address] Pulmonary Disease 06/26/18 Yuliya Ibarra MD [address] [place] [address] Endocrinology 06/26/18 Phuong Callejas DPM [address] [place], [place] [address] Podiatry 06/26/18 Sy Barrientos MD [address] [place] [address] [place] [address] Ophthalmology 06/26/18 [place] [address] [id number] Pulmonary Disease 06/26/18 Rico Gasca MD [address] [place] [address] Urology 06/26/18 Elle Landaverde MD [address] [facility] [address] [place] [address] Vascular Surgery 06/26/18 Kirk Truong MD [address] [place] [address] Gastroenterology 06/26/18 [place] [address] [place] [address] General Surgery 06/26/18 documented as of this encounter
--- OUTSIDE RECORDS SUMMARY | 2024-05-26 12:37 | XMS_ITS | Encounter Summary ---
Author Organization [facility] Address [address] [facility] [address] [place] [address] Care Team Providers Care Social Service Assistant Name Role Phone Etienne Florez MD Unavailable Enrique Gonzalez MD Unavailable [phone] Theersa Camargo MD Primary Care Provider [phone] Nelson Ross MD Unavailable Laz Valencia MD Unavailable Russell Moran MD Unavailable [phone] Yuliya Ibarra MD Unavailable Phuong Callejas DPM Unavailable [phone] Sy Barrientos MD Unavailable Russell Moran MD Unavailable [phone] Rico Gasca MD Unavailable [phone] Elle Landaverde MD Unavailable [phone] Kirk Truong MD Unavailable Shira Love DO Unavailable [phone] BriceAsha Heidy [facility] Unavailable [phone] Encounter Details Date Type Department Care Team (Latest Contact Info) Description 06/09/2020 7:47 AM STYLIST ASSISTANT - 06/09/2020 8:29 AM STYLIST ASSISTANT Hospital Encounter [facility] [address] [place] [address] [place] [address] [address] Discharge Disposition: Home or Self [...] COVID-19? No / Unsure 05/30/2020 12:11 PM STYLIST ASSISTANT documented as of this encounter Functional Status [...] week on Friday and 05/30/2022 nystatin (MYCOSTATIN) 548169 UNIT/GM powder Apply to affected area 2 times daily 60 g 04/12/2019 09/14/2020 nystatin-triamcinolone (MYCOLOG) 111157-0.1 UNIT/GM-% cream Apply to affected area 2 [...] < 140/90 Blood Pressure 127/52(2022 8:09 AM STYLIST ASSISTANT) No Alisa Jaramillo HEMOGLOBIN A1C < 7.0 Result Component 5.4( 12:00 AM CDT) No Alisa Jaramillo documented as of this encounter Procedures Procedure Name Priority Date/Time Associated Diagnosis Comments BASIC METABOLIC PANEL (CALCIUM TOTAL) STAT 06/09/2020 8:39 AM STYLIST ASSISTANT Malignant neoplasm of upper-outer quadrant of left breast in female, estrogen receptor positive (HCC) Osteopenia of multiple sites Use of aromatase inhibitors documented in this encounter Results * (ABNORMAL) BASIC METABOLIC PANEL (CALCIUM TOTAL) (06/09/2020 8:39 AM STYLIST ASSISTANT) Glucose 220(H) 70 - 105 mg/dL 06/09/2020 9:03 AM [facility] Sodium 137 136 - 145 mmol/L 06/09/2020 9:03 AM [facility] Potassium 4.3 3.5 - 5.1 mmol/L 06/09/2020 9:03 AM [facility] Chloride 100 98 - 107 mmol/L 06/09/2020 9:03 AM [facility] CO2 28 23 - 31 mmol/L 06/09/2020 9:03 AM [facility] Calcium 10.5(H) 8.4 - 10.4 mg/dL 06/09/2020 9:03 AM [facility] Anion Gap 9 8 - 18 mmol/L 06/09/2020 9:03 AM [facility] Comment:Attention clinician: Reference Range change. BUN 26(H) 9.8 - 20.1 mg/dL 06/09/2020 9:03 AM [facility] Creatinine 1.12(H) 0.57 - 1.11 mg/dL 06/09/2020 9:03 AM [facility] eGFR by MDRD 47 mL/min/1.7 3m2 06/09/2020 9:03 AM [facility] eGFR by MDRD 57 mL/min/1.7 3m2 06/09/2020 9:03 AM [facility] Blood BLOOD SPECIMEN / Unknown Venipuncture / Unknown 06/09/2020 8:39 AM STYLIST ASSISTANT 06/09/2020 8:48 AM STYLIST ASSISTANT Enrique Gonzalez MD LAB - CHEMISTRY [facility]AN [facility] Organization Address City/State/ZIP Co de Phone Number [facility] [address] [place] [address] documented in this encounter Visit Diagnoses Diagnosis Malignant neoplasm of upper-outer quadrant of left breast in female, estrogen receptor positive (HCC) Osteopenia of multiple sites Use of aromatase inhibitors documented in this encounter Care Teams Social Service Assistant Relationship Specialty Start [place] [address] [facility] [address] [place] [address] PCP - General Internal Medicine 03/31/18 05/30/22 Asha Narvaez APRN-TEST CARRIER [address] [facility] [address] [place] [address] PCP - Attributed-MSSP 02/17/20 06/18/20 Etienne Florez MD Orthopedic Surgery 12/09/14 [place] [address] [phone] Oncology 09/15/17 [place] [address] [address] Neurology 06/26/18 [place] [address] [phone] Cardiovascular Disease 06/26/18 [place] [address] [address] Pulmonary Disease 06/26/18 Yuliya Ibarra MD [address] [place] [address] Endocrinology 06/26/18 Phuong Callejas DPM [address] [place] [address] Podiatry 06/26/18 Sy Barrientos MD [address] [place] [address] [place] [address] Ophthalmology 06/26/18 [place] [address] [address] Pulmonary Disease 06/26/18 Rico Gasca MD [address] [facility] [address] [place] [address] Urology 06/26/18 Elle Landaverde MD [address] [facility] [address] [place] [address] Vascular Surgery 06/26/18 Kirk Truong MD [address] [facility] [address] [place] [address] Gastroenterology 06/26/18 [place] [address] [place] [phone] General Surgery 06/26/18 documented as of this encounter
--- OUTSIDE RECORDS SUMMARY | 2024-05-26 12:37 | XMS_ITS | Encounter Summary ---
Author Organization [facility] Address [address] [facility] [facility] [address] [place] [address] Care Team Providers Care Ladle Mechanic Name Role Phone Etienne Florez MD Unavailable Enrique Gonzalez MD Unavailable [phone] Theresa Camargo MD Primary Care Provider Nelson Ross MD Unavailable Laz Valencia MD Unavailable Russell Moran MD Unavailable Yuliya Ibarra MD Unavailable Phuong Callejas DPM Unavailable Sy Barrientos MD Unavailable Russell Moran MD Unavailable Rico Gasca MD Unavailable Elle Landaverde MD Unavailable [phone] Kirk Truong MD Unavailable [phone] Shira Love DO Unavailable [phone] Asha Narvaez [facility] Unavailable [phone] Reason for Referral * Radiology Services (Routine) - Closed Specialty Diagnoses / Procedures Referred By Alejandrina t Referred To Contact Vascular Lab Diagnoses Mass of left lower extremity Procedures VAS BILATERAL [place] [address] [address] Referral ID Status Reason Start Date Expiration Date Visits Re quested Visits Authorized [id number] Closed 06/13/2020 06/13/2021 1 1 OFFICIAL Reason for Visit * Reason Comments Follow-up Encounter Details Date Type Department Care Team (Late st Contact Info) Description 06/13/2020 10:40 AM FIRE OFFICIAL Office Visit [facility] Neurosciences [id number] [place] [address] Nelson Ross MD [address] [place] [address] Spastic paraplegia, hereditary (HCC) (Primary Dx); History of stroke; Mass of left lower extremity; Memory loss Social History Tobacco Use Types [...] COVID-19? No / Unsure 06/13/2020 11:38 AM FIRE OFFICIAL documented as of this encounter Last Filed Vital Signs Vital Sign Reading Time Taken Comments Blood Pressure 128/62 06/13/2020 10:59 AM FIRE OFFICIAL Pulse 88 06/13/2020 10:59 AM FIRE OFFICIAL Temperature - - Respiratory Rate 14 06/13/2020 10:59 AM FIRE OFFICIAL Oxygen Saturation 96% 06/13/2020 10:59 AM FIRE OFFICIAL Inhaled Oxygen Concentration - - Weight 80.3 kg (177 lb) 06/13/2020 10:59 AM FIRE OFFICIAL Height 165.1 cm (5' 5 ) 06/13/2020 10:59 AM FIRE OFFICIAL Body Mass Index 29.45 06/13/2020 10:59 AM FIRE OFFICIAL documented in this encounter Functional Status Functional [...] this encounter Patient Instructions * Patient Instructions* Eva Sinha - 06/13/2020 11:38 AM FIRE OFFICIAL Call physician if symptoms worsen or with any questions. Take Medications as prescribed. For descriptions of a variety of neurological conditions please visit: [email or web address] Please contact our office 48 hours after testing is complete for results. YOU ARE SCHEDULED FOR A DVT STUDY ON 06/13/2020 AT FOLLOWING COVID SHOT AT [facility] [employer]. THEY ARE LOCATED IN THE [place] [address]. PHONE NUMBER IS [phone]. OFFICIAL documented in this encounter Progress Notes * Nelson Ross MD - 06/13/2020 11:18 AM CST CC: HSP IH: Getting her vaccine today. Walks minimally. Has a friend who comes in and does some therapy. Edema is better. DM if off and back on insulin. Still on Elavil. No pain other than leg which is new. No stoke events. CPAP intermittent. Memory is failing. Back pain is OK right now. Has indwelling catheter Outpatient Medications Marked as Taking for the 06/13/20 encounter (Office Visit) with Nelson Ross MD Medication Sig Dispense Refill ??? albuterol HFA (PROAIR HFA) 108 (90 BASE) MCG/ACT inhaler Take 2 Puffs by mouth every 4 hours asneeded. ??? amitriptyline (ELAVIL) 25 MG tablet Take 2 tablets at bedtime 60 tablet 5 ??? aspirin (ASPIRIN) 81 MG tablet Take [...] TAKE 1 CAPSULE DAILY 90 capsule 4 ??? FLECAINIDE ACETATE PO Take 50 mg by mouth 2 times daily ??? FREESTYLE LITE STRIPS test strip TEST BLOOD SUGARS THREE TIMES A DAY ??? furosemide (LASIX) 40 MG tablet Take 1 Tab by mouth once daily 90 Tab 2 ??? glimepiride (AMARYL) 1 MG tablet [...] 1 TABLET (50 MCG) BY MOUTH DAILY CONSERVATION ENGINEER. ??? menthol-zinc oxide (CALMOSEPTINE) 0.44-20.6 % ointment Apply to affected area as needed for Other ??? metOLazone (ZAROXOLYN) 2.5 MG tablet Take 2.5 mg by mouth Take 1 tab twice a week on Friday and ??? multivitamin with iron (ONE A DAY WITH IRON) tablet Take 1 Tab by mouth once daily. ??? nystatin (MYCOSTATIN) 096350 UNIT/GM powder Apply to affected area 2 times daily 60 g 0 ??? nystatin-triamcinolone (MYCOLOG) 639701-9.1 UNIT/GM-% cream Apply to affected area 2 times daily 30 g 0 ??? polyethyl glycol-propyl glycol (SYSTANE) 0.4-0.3 % ophth solution Instill 1 drop into both eyesonce as needed ??? polyethylene glycol 3350 (MIRALAX) packet Take 17 g by mouth once daily ??? potassium chloride ER (KLOR-CON) 20 MEQ [...] needed (catheter not draining) 500 mL 3 Review of Systems Constitutional: Negative for chills and fever. Eyes: Positive for blurred vision. Gastrointestinal: Positive for constipation and diarrhea. Genitourinary: Positive for frequency and urgency. Now catheterized Musculoskeletal: Positive for falls. Negative for back pain. Neurological: Positive for dizziness. Exam: BP 128/62 Pulse 88 Resp 14 Ht 1.651 m (5' 5 ) Wt 80.3 kg (177 lb) SpO2 96% BMI 29.45 kg/m2 Alert Knows date POTUS - Biden NOOKSACK In WC Legs weak Distal vib loss Reflexes brisk at knees Non ambulatory FFOV No drift FTN OK Round tender moveable mass left calf at posterior lateral line. Dime size Recent Labs Component Name 11/26/19 0855 06/12/17 0823 12/30/16 0430 CHOL 124 113 89 TRIG 183* 148 114 HDL 32* 35* 34* VLDL 37* - 23 LDLCALC 55 55 32 Recent Labs Component Name 03/05/19 1301 11/06/18 1043 12/09/17 1545 06/12/17 0823 06/12/17 0823 12/29/16 0121 12/28/16 1814 WBC 7.0 7.2 7.5 - 8.2 6.6 7.6 RBC 4.69 4.59 4.75 - 4.91 4.54 4.83 HGB 12.6 11.2* 11.0* - 11.2* 10.8* 11.5* HCT 41.0 38.2 36.4 - 37.2 35.0* 37.1 MCV 87.4 83.2 77* - 75.8* 77.1* 76.8* MCHC 30.7* 29.3* 30.2* - 30.1* 30.9 31.0 PLTCOUNT 319 327 326 - 425* 290 318 NEUTPCT - - - - - 55.7 59.9 LYMPHPCT - - - - 20.3 26.9 25.4 MONOCYTPCT 9.1 11.6 9 - - - - EOSINPCT 2.9 2.6 3 - 3.5 - - BASOPHILPCT - - - - 0.7 0.6 0.5 GRANSIMMPCT - - - - - 0.3 0.3 NEUTABS - - - - - 3.66 4.58 LYMPHABS 1.36 1.53 1.9 - - 1.77 1.94 MONOCYTABS 0.63 0.83 0.7 - - - - BASOABS 0.04 0.04 0.0 - - 0.04 0.04 IMMGRANSABS 0.05 0.04 0.0 - - - - - = values in this interval not displayed. Recent Labs Component Name 06/09/20 0839 12/30/19 [...] 10.5* 11.3* 11.3* - 10.4* - 10.5* ALT - - 22 - 20 - 16 ALKPHOS - - 93 - 95 - 75 AST - - 17 - 17 - 15 TBIL - - 0.3 - 0.3 - 0.2 TPROT - - 7.0 - 6.2* - 6.1* EGFR 47 50* 53 - >60 - >60 EGFRAFR 57 58* >60 - >60 - >60 ALBUMIN - - 4.0 - 3.9 - 3.9 - = values in this interval not displayed. ASSESSMENT: Hereditary spastic paresis - progressive Memory loss Hx of stroke Small mass posterior left leg PLAN: Same Plavix Same Elavil DVT study 6 month OV OFFICIAL documented in this encounter Plan of Treatment Not on file documented as of this encounter Goals Goal Patient Goal Type Associated Problems Recent Progress Patient-Stated? 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 8:09 AM FIRE OFFICIAL) No Alisa Jaramillo HEMOGLOBIN A1C < 7.0 Result Component 5.4( 12:00 AM CDT) No Alisa Jaramillo documented as of this encounter Results * VAS BILATERAL VENOUS DUPLEX LE (06/13/2020 1:19 PM FIRE OFFICIAL) Anatomical Region Laterality Modality Lower Extremity Ultrasound 06/13/2020 12:5 8 PM FIRE OFFICIAL Narrative Procedure Note Claude Engel MD - 06/13/2020 [facility] Health Vascular [facility] [address] [facility], [address] [place] [address] Lower Extremity Venous Ultrasound Report Pat.Name: LOC ANDERSON Pat.ID: [id number] .Date: 06/13/2020 Refer.MD: LUIS EDUARDO WEBSTER Exam Time: 12:58:00 PM Study Type:LE Venous Age: 7 1940,79Y Sex: FEMALE Sonogrphr: Thiago Sutherland RVT Pat. Stat.:Outpatient ICD - 9: I82.493 Acute embolism and thrombosis of other specified deep vein of lower extremity CPT - 4: 04514 Procedures: Lower Extremity Venous - Bilateral Race: 2 Visit ID: [id number] ++++++++++++++++++++++++++++++++++++ SUMMARY: ++++++++++++++++++++++++++++++++++++ There is no evidence [...] documented in this encounter Visit Diagnoses Diagnosis Spastic paraplegia, hereditary (HCC)- Primary Hereditary spastic paraplegia History of stroke Transient ischemic attack (TIA), and cerebral infarction without residual deficits Mass of left lower extremity Memory loss Mass of left lower extremity documented in this encounter Care Teams Ladle Mechanic Relationship Specialty [place] [address] [facility] [address] [place] [address] PCP - General Internal Medicine 03/31/18 05/30/22 Asha Narvaez APRN-WOOD FURNITURE ASSEMBLER [address] [facility] [address] [place] [address] PCP - Attributed-MSSP 02/17/20 06/18/20 Etienne Florez MD Orthopedic Surgery 12/09/14 [place] [address] [facility] [address] [place] [phone] Oncology 09/15/17 [place] [address] [facility] [address] [place] [phone] Neurology 06/26/18 [place] [address] [facility] [address] [place] [address] Cardiovascular Disease 06/26/18 [place] [address] [facility] [address] [place] [address] Pulmonary Disease 06/26/18 Yuliya Ibarra MD [address] [facility] [address] [place] [phone] Endocrinology 06/26/18 Phuong Callejas DPM [address] [place] [address] Podiatry 06/26/18 Sy Barrientos MD [address] [place] [address] [place] [address] Ophthalmology 06/26/18 [place] [address] [address] Pulmonary Disease 06/26/18 Rico Gasca MD [address] [address] Urology 06/26/18 Elle Landaverde MD [address] [address] Vascular Surgery 06/26/18 Kirk Truong MD [address] [address] Gastroenterology 06/26/18 [place] [address] [facility] [address] [place] [phone] General Surgery 06/26/18 documented as of this encounter
--- OUTSIDE RECORDS SUMMARY | 2024-05-26 12:37 | XMS_ITS | Encounter Summary ---
Author Organization [facility] Address [address] [place] [address] Care Team Providers Care Harvest Worker Field Crop Name Role Phone Etienne Florez MD Unavailable [phone] Enrique Gonzalez MD Unavailable [phone] Theresa Camargo MD Primary Care Provider Nelson Ross MD Unavailable Laz Valencia MD Unavailable Russell Moran MD Unavailable [phone] Yuliya Ibarra MD Unavailable Phuong Callejas DPM Unavailable Sy Barrientos MD Unavailable [phone] Russell Moran MD Unavailable Rico Gasca MD Unavailable [phone] Elle Landaverde MD Unavailable [phone] Kirk Truong MD Unavailable Shira Love DO Unavailable [phone] Asha Narvaez [facility] Unavailable [phone] Reason for Visit * Reason Onset Date Comments MEDICATION REFILL 03/27/2020 Encounter Details Date Type Department Care Team (Late st Contact Info) Description 03/27/2020 Refill [facility] Health Neurosciences [address] [facility] [address] [place] [address] [place] [address] [facility] [address] [place] [address] MEDICATION REFILL Social History Tobacco [...] COVID-19? No / Unsure 03/22/2020 3:20 PM BACK UP WORKER documented as of this encounter Functional Status [...] * Telephone Encounter - Nikki Wan - 03/27/2020 1:13 PM CST Last refill 03-13-20 Last OV 12-09-19 Patient daughter states she take 2 tablets at bedtime. Orders placed please review and sign. UP WORKER documented in this encounter Plan of Treatment Not on file documented as of this encounter Goals Goal Patient Goal Type Associated Problems Recent Progress Patient-Stated? 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 8:09 AM BACK UP WORKER) No Alisa Jaramillo HEMOGLOBIN A1C < 7.0 Result Component 5.4( 12:00 AM CDT) No Clint Alisa documented as of this encounter Visit Diagnoses Not on filedocumented in this encounter Care Teams Harvest Worker Field Crop Relationship Specialty [place] [address] [facility] [address] [place], [place] [id number] PCP - General Internal Medicine 03/31/18 05/30/22 Asha Narvaez APRN-LITIGATION CLAIM REPRESENTATIVE [address] [facility] [address] [place], [place] [id number] PCP - Attributed-MSSP 02/17/20 06/18/20 Etienne Florez MD Orthopedic Surgery 12/09/14 [place] [address] [phone] Oncology 09/15/17 [place] [address] [facility] [address] [place] [phone] Neurology 06/26/18 [place] [address] [phone] Cardiovascular Disease 06/26/18 [place] [address] [address] Pulmonary Disease 06/26/18 Yuliya Ibarra MD [address] [place] [phone] Endocrinology 06/26/18 Phuong Callejas DPM [address] [place] [address] Podiatry 06/26/18 Sy Barrientos MD [address] [place] [address] [place] [address] Ophthalmology 06/26/18 [place] [address] [address] Pulmonary Disease 06/26/18 Rico Gasca MD [address] [facility] [address] [place] [address] Urology 06/26/18 Elle Landaverde MD [address] [facility] [address] [place] [address] Vascular Surgery 06/26/18 Kirk Truong MD [address] [facility] [address] [place] [address] Gastroenterology 06/26/18 [place] [address] [place] [address] [place] [phone] General Surgery 06/26/18 documented as of this encounter
--- OUTSIDE RECORDS SUMMARY | 2024-05-26 12:37 | XMS_ITS | Encounter Summary ---
Author Organization [facility] Address [address] [facility] [place] [address] Care Team Providers Care Compliance Attorney Name Role Phone Etienne Florez MD Unavailable Enrique Gonzalez MD Unavailable [phone] Theresa Camargo MD Primary Care Provider Nelson Ross MD Unavailable Laz Valencia MD Unavailable Russell Moran MD Unavailable [phone] Yuliya Ibarra MD Unavailable Phuong Callejas DPM Unavailable [phone] Sy Barrientos MD Unavailable [phone] Russell Moran MD Unavailable Rico Gasca MD Unavailable Elle Landaverde MD Unavailable Kirk Truong MD Unavailable [phone] Shira Love DO Unavailable [phone] [address] Nar[address] [facility] Unavailable [phone] Reason for Visit * Reason Comments Refill Request Encounter Details Date Type Department Care Team (Late st Contact Info) Description 09/02/2020 Refill [facility] Family Medicine [address] [facility] [address] [place] [address] [place] [address] [facility] [address] [place] [address] Refill Request Social History Tobacco [...] 140/90 Blood Pressure 127/52(2022 8:09 AM BUSINESS CONTROL MANAGER) No Alisa Jaramillo HEMOGLOBIN A1C < 7.0 Result Component 5.4( 12:00 AM CDT) No Alisa Jaramillo documented as of this encounter Visit Diagnoses Not on filedocumented in this encounter Care Teams Compliance Attorney Relationship Specialty Start [place] [address] [facility] [address] [place] [address] PCP - General Internal Medicine 03/31/18 05/30/22 Asha Narvaez, WELDING TECHNICIAN-INTERACTIVE MEDIA MARKETING STRATEGIST [address] [facility] [address] [place] [address] PCP - Attributed-MSSP 08/17/20 10/16/20 Etienne Florez MD Orthopedic Surgery 12/09/14 [place] [address] [facility] [address] [place] [phone] Oncology 09/15/17 [place] [address] [facility] [address] [place] [address] Neurology 06/26/18 [place] [address] [facility] [address] [place] [address] Cardiovascular Disease 06/26/18 [place] [address] [address] Pulmonary Disease 06/26/18 Yuliya Ibarra MD [address] [facility] [address] [place] [phone] Endocrinology 06/26/18 Phuong Callejas DPM [address] [place] [address] Podiatry 06/26/18 Sy Barrientos MD [address] [place] [address] [place] [address] Ophthalmology 06/26/18 [place] [address] [address] Pulmonary Disease 06/26/18 Rico Gasca MD [address] [phone] Urology 06/26/18 Elle Landaverde MD [address] [address] Vascular Surgery 06/26/18 Kirk Truong MD [address] [address] Gastroenterology 06/26/18 [place] [address] [phone] General Surgery 06/26/18 documented as of this encounter
--- OUTSIDE RECORDS SUMMARY | 2024-05-26 12:37 | XMS_ITS | Encounter Summary ---
Author Organization [facility] Address [address] [place] [address] Care Team Providers Care Digital Account Supervisor Name Role Phone Etienne Florez MD Unavailable Enrique Gonzalez MD Unavailable [phone] Theresa Camargo MD Primary Care Provider Nelson Ross MD Unavailable Laz Valencia MD Unavailable Russell Moran MD Unavailable Yuliya Ibarra MD Unavailable [phone] Phuong Callejas DPM Unavailable [phone] Sy Barrientos MD Unavailable Russell Moran MD Unavailable Rico Gasca MD Unavailable Elle Landaverde MD Unavailable Kirk Truong MD Unavailable [phone] Shira Love DO Unavailable [phone] Asha Narvaez RUBBER COMPOUNDER FOR[facility] Unavailable [phone] Reason for Visit * Reason Comments Diarrhea Pain Abdominal Encounter Details Date Type Department Care Team (Late st Contact Info) Description 06/14/2020 1:30 PM OIL PIPELINE OPERATOR Office Visit [facility] [address] [facility], [address] [place] [address] [place] [address] [facility] [address] [place] [address] Chronic idiopathic constipation (Primary Dx); Change in bowel habits Social History Tobacco Use Types Packs/Day Years [...] COVID-19? No / Unsure 06/13/2020 11:38 AM OIL PIPELINE OPERATOR documented as of this encounter Functional [...] as of this encounter Progress Notes * Kirk Truong MD - 06/14/2020 1:26 PM CST Telemedicine Note Today's visit was conducted virtually due to COVID-19 countermeasures. The patient has given verbalconsent to have today's visit conducted by this same means with treatment provided remotely. The patient verbally consents to the billing and collection practices of [facility]. Patient location: Home This encounter was performed using: audio Reason for not using video for visit: patient refused Time spent with patient/proxy: 21 minutes (greater than 21 minutes does not change coding) Name: Perla Leon PCP: Theresa Camargo MD History of Present Illness: The patient is a 79 year old White/ female who calls today for evaluation of Change in bowel habits. She has a long history of alternating constipation and diarrhea. Over the last 2 months she has been having progressive symptoms. In mid April she began having worsening diarrhea which she quantified is 3-4 nonbloody bowel movements per day. There is no hematochezia, melena, mucousy stool or nocturnal diarrhea. She underwent stool studies that were negative for infection. Celiac labswere negative. During those 4 weeks she was also having fecal incontinence. For unclear reasons shecontinue to take MiraLax 1 capsule per day during her acute diarrheal illness. Two weeks prior however she changed back to constipation. She is currently having a bowel movement every 2 or 3 days. She denies abdominal pain. She had 1 transient bout of hematochezia since developing constipation. Thepatient does no weight loss but she relates this to initiation on diuretics. Colonoscopy in February, was notable for 4 polyps. Endoscopy in December, demonstrated benign gastric polyps. ROS: Gen: No weight loss, fevers, chills, or sweats. Normal appetite. Skin: No rashes ENMT: No yellowing of eyes or skin. CVS: No chest pain or palpitations. Respiratory: No cough,No Sputum, No hemoptysis, No SOB, No CHARLES GI: See HPI Musculoskeletal : No swelling or pain. Neuro: No confussion or drowsiness. Psych: No depression, anxiety, or SI. Exrem: No edema All other systems negative unless otherwise stated. Medical History: I have reviewed the patient's medical history in detail and updated the computerized patient record. 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 Asthma [...] AND LT ARM ??? THYROID NEEDLE BIOPSY Allergies: Allergies Allergen Reactions ??? Advair Diskus YEAS INFECTION ??? Aricept [Donepezil] Other I dont remember ??? Diltiazem Swelling ??? Metformin Diarrhea ??? Black Pepper [Piper Longum] Unknown ??? Fluticasone Diarrhea ??? Salmeterol Diarrhea ??? Sotalol Other Hair loss Current meds: Updated in [facility] chart, and personally reviewed by me Social History: Social History Socioeconomic History ??? Marital status: Spouse name: Not on file ??? Number of children: 3 ??? Years of education: Not on file ??? Highest education level: Not on file Occupational History ??? 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 Financial resource strain: Not on file ??? Food insecurity Worry: Not on file Inability: Not on file ??? Transportation needs Medical: Not on file Non-medical: Not on file Tobacco Use ??? Smoking status: Never Smoker ??? Smokeless tobacco: Never Used Substance and Sexual Activity ??? Alcohol use: No Alcohol/week: 0.0 standard drinks ??? Drug use: No ??? Sexual activity: Not on file Lifestyle ??? Physical activity Days per week: Not on file Minutes per session: Not on file ??? Stress: Not on file Relationships ??? Social connections Talks on phone: Not on file Gets together: Not on file Attends jainism service: Not on file Active member of club or organization: Not on file Attends meetings of clubs or organizations: Not on file Relationship status: Not on file ??? Intimate partner violence Fear of current or ex partner: Not on file Emotionally abused: Not on file Physically abused: Not on file Forced sexual activity: Not on file Other Topics Concern [...] History Narrative ??? Not on file Family Hx: Family Hx of GI Malignancy: None Family Hx of Liver Disease: None Physical Exam: N/a Assessment and Plan Perla is a 79 year old female who has completed a telemedicine encounter for change in bowel habits with fecal incontinence 1. Change in bowel habits the patient has a long history of alternating constipation and diarrhea which are likely due to irritable bowel syndrome And potentially relate to her underlying herediatry spastic paraplegia and poor functional status. She had acute diarrhea that lasted nearly 4 weeks but has now resolved. Recent stool studies were negative for infection. Celiac testing was unremarkable. Her last colonoscopy wasin 2018 was notable for small polyps. Over the last 2 weeks her bowels have transition to constipation. I instructed her start Benefiber 2 tbsp q.day and to discontinue her MiraLax. To help with her fecal incontinence then only was she try fiber supplementation but she will be provided a copy of Kegel exercises to try. She will update me in 2 weeks through my chart. The patient's daughter was also present at her conference audio visit today and agrees with the plans and recommendations. The plan was reviewed with the patient and the patient confirmed understanding of the plan and all follow-up steps. All aspects of patient's medical history were reviewed and updated as documented in Epic Kirk Truong MD PIPELINE OPERATOR documented in this encounter Plan of Treatment Not on file documented as of this encounter Goals Goal Patient Goal Type Associated Problems Recent Progress Patient-Stated? 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 8:09 AM OIL PIPELINE OPERATOR) No Alisa Jaramillo HEMOGLOBIN A1C < 7.0 Result Component 5.4( 12:00 AM CDT) No Alisa Jaramillo documented as of this encounter Visit Diagnoses Diagnosis Chronic idiopathic constipation- Primary Unspecified constipation Change in bowel habits Other symptoms involving digestive system documented in this encounter Care Teams Digital Account Supervisor Relationship Specialty [place] [address] [address] PCP - General Internal Medicine 03/31/18 05/30/22 Asha Narvaez, RUBBER COMPOUNDER FORMULATOR-ELECTRICIAN SHIP [address] [facility] [address] [place] [address] PCP - Attributed-MSSP 02/17/20 06/18/20 Etienne Florez MD Orthopedic Surgery 12/09/14 [place] [address] [facility] [address] [place] [address] Oncology 09/15/17 [place] [address] [facility] [address] [place] [address] Neurology 06/26/18 [place] [address] [facility] [address] [place] [address] Cardiovascular Disease 06/26/18 [place] [address] [id number] Pulmonary Disease 06/26/18 Yuliya Ibarra MD [address] [facility] [address] [place] [phone] Endocrinology 06/26/18 Phuong Callejas DPM [address] [place] [address] Podiatry 06/26/18 Sy Barrientos MD [address] [place] [address] [place] [address] Ophthalmology 06/26/18 [place] [address] [place] [address] [place] [address] Pulmonary Disease 06/26/18 Rico Gasca MD [address] [address] Urology 06/26/18 Elle Landaverde MD [address] [address] Vascular Surgery 06/26/18 Kirk Truong MD [address] [address] Gastroenterology 06/26/18 [place] [address] [place] [address] [place] [phone] General Surgery 06/26/18 documented as of this encounter
--- OUTSIDE RECORDS SUMMARY | 2024-05-26 12:37 | XMS_ITS | Encounter Summary ---
Author Organization [facility] Address [address] [facility] [place] [address] Care Team Providers Care Cleat Maker Name Role Phone Etienne Florez MD Unavailable Enrique Gonzalez MD Unavailable [phone] Theresa Camargo MD Primary Care Provider Nelson Ross MD Unavailable [phone] Laz Valencia MD Unavailable Russell Moran MD Unavailable Yuliya Ibarra MD Unavailable Phuong Callejas DPM Unavailable Sy Barrientos MD Unavailable Russell Moran MD Unavailable Rico Gasca MD Unavailable Elle Landaverde MD Unavailable Kirk Truong MD Unavailable [phone] Shira Love Unavailable Asha Narvaez APRN-HARVEST CONTRACTOR Unavailable [phone] Encounter Details Date Type Department Care Team (Late st Contact Info) Description 06/09/2020 11:[address] REPORTER Office Visit [facility] [address] [facility] [address] [place] [address] Asha Narvaez APRN-HARVEST CONTRACTOR [address] [facility] [address] [place] [address] Medicare annual wellness visit, initial (Primary Dx) Social History Tobacco Use Types [...] COVID-19? No / Unsure 05/30/2020 12:[address] REPORTER documented as of this encounter Last Filed Vital Signs Vital Sign Reading Time Taken Comments Blood Pressure 124/45 06/09/2020 11:[address] REPORTER Pulse 79 06/09/2020 11:[address] REPORTER Temperature 36.1 ??C (97 ??F) 06/09/2020 11:[address] REPORTER Respiratory Rate 16 06/09/2020 11:[address] REPORTER Oxygen Saturation 96% 06/09/2020 11:[address] REPORTER Inhaled Oxygen Concentration - - Weight 80.3 kg (177 lb) 06/09/2020 11:[address] REPORTER Height 165.1 cm (5' 5 ) 06/09/2020 11:[address] REPORTER Body Mass Index 29.45 06/09/2020 11:[address] REPORTER documented in this encounter Functional Status Functional [...] as of this encounter Progress Notes * Asha Narvaez, COIL PLACER-HARVEST CONTRACTOR - 06/09/2020 11:25 AM CST WELCOME TO MEDICARE PREVENTIVE VISIT INITIAL PREVENTIVE PHYSICAL EXAM (Within first 12 months of Medicare enrollment (G0402)) (Initial visit performed after first 12 months of Medicare enrollment (G0438)) (12 lead ECG during initial visit w/interpretation and report (G0403), tracing only (G0404), interpretation and report only (G0405)) REVIEW OF BENEFICIARY'S MEDICAL AND SOCIAL HISTORY I have documented, updated and reviewed the below components of the patient's history: Past Medical History: Diagnosis Date ??? Asthma [...] T1cN0(i-)M0, stage IA. ER pos 97% (strong), [place] pos 23% (moderate), Her-2 neg (1+ on [...] ARM ??? THYROID NEEDLE BIOPSY Social History Socioeconomic History ??? Marital status: Spouse name: Not on file ??? Number of children: 3 ??? Years of education: Not on file ??? Highest education level: Not on file Occupational History ??? 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 Financial resource strain: [...] file Gets together: Not on file Attends orthodox service: Not on file Active member of [...] ??? CAD (Coronary Artery Disease) Brother CHF Allergies Allergen Reactions ??? Advair Diskus YEAS INFECTION ??? Aricept [Donepezil] Other I dont remember ??? Diltiazem Swelling ??? Metformin Diarrhea ??? Black Pepper [Piper Longum] Unknown ??? Fluticasone Diarrhea ??? Salmeterol Diarrhea ??? Sotalol Other Hair loss Current Outpatient Medications Medication Sig Dispense Refill ??? albuterol HFA (PROAIR HFA) 108 (90 BASE) MCG/ACT inhaler Take 2 Puffs by mouth every 4 hours asneeded. ??? amitriptyline (ELAVIL) 25 MG tablet Take 2 tablets at bedtime 60 tablet 5 ??? 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 aspirin (ASPIRIN) 81 MG [...] 1 TABLET (50 MCG) BY MOUTH DAILY TOOL LATHE OPERATOR. ??? menthol-zinc oxide (CALMOSEPTINE) 0.44-20.6 % ointment Apply to affected area as needed for Other ??? metOLazone (ZAROXOLYN) 2.5 MG tablet Take 2.5 mg by mouth Take 1 tab twice a week on Friday and ??? multivitamin with iron (ONE A DAY WITH IRON) tablet Take 1 Tab by mouth once daily. ??? nystatin (MYCOSTATIN) 085586 UNIT/GM powder Apply to affected area 2 times daily 60 g 0 ??? nystatin-triamcinolone (MYCOLOG) 629124-5.1 UNIT/GM-% cream Apply to affected area 2 [...] 500 mL 3 No current facility-administered medications for this visit. CURRENT DIET limits carbohydrates PHYSICAL ACTIVITIES regularly 5 times per week REVIEW OF BENEFICIARY'S POTENTIAL RISK FACTORS FOR DEPRESSION AND OTHER MOOD DISORDERS DEPRESSION PHQ-2:TOTAL POINT SCORE: 0 PHQ-9: REVIEW OF BENEFICIARY'S FUNCTIONAL ABILITY AND LEVEL OF SAFETY HEARING IMPAIRMENT Do you have a problem hearing over the telephone? No Do you have trouble following the conversation when two or more people are talking at the same time? No Do people complain that you turn the TV volume up too high? Yes Do you have a strain to understand conversation? Yes Do you have trouble hearing in a noisy background? Yes Do you find yourself asking people to repeat themselves? Yes Do many people you talk to seem to mumble (or not speak clearly)? Yes Do you misunderstand what others are saying and respond inappropriately? Yes Do you have trouble understanding the speech of women and children? No Do people get annoyed because you misunderstand what they say? Yes (NIH: If answered yes to 3 or more may need to be referred) ACTIVITIES OF DAILY LIVING Without assistance are you able: Dress? Yes Feed yourself? Yes Prepare meals? No Walk independently? Yes Toilet yourself? Yes Do own hygiene? Yes ([facility]: If answered yes to 1 or more may need to be referred) FALL RISK Future Falls: Have you fallen in the last year?: (!) Yes (document or confirm fall details are in the medical history) Fall >2 x or injured from the fall?: (!) Yes HOME SAFETY (ask patient when alone) Do you feel safe at home? Yes, feel safe Have you ever been hit/hurt by someone close to you? No, have not been hit/hurt Do you feel threatened by someone close to you? No, do not feel threatened Pt non-communicative or severely cognitively impaired? No Are there signs/clinical indicators of abuse/neglect? No, signs of abuse/neglect Unable to question patient about abuse? Not applicable EXAM Vitals: 06/09/20 1124 BP: 124/45 Pulse: 79 Resp: 16 Temp: 97 ??F (36.1 ??C) SpO2: 96% Weight: 80.3 kg (177 lb) Height: 1.651 m (5' 5 ) Body mass index is 29.45 kg/m??. VISUAL ACUITY SCREEN Hearing Screening 125Hz 250Hz 500Hz 1000Hz 2000Hz 3000Hz 4000Hz 6000Hz 8000Hz Right ear: Left ear: Comments: Failed whispered hearing screening. Patient not currently wearing her hearing aids. Visual Acuity Screening Right eye Left eye Both eyes Without correction: With correction: 20/100 20/40 20/40 Cognitive screening: No deficits noted. END-OF-LIFE PLANNING, UPON AGREEMENT OF BENEFICIARY ADVANCED DIRECTIVE Yes CODE STATUS Full Code EDUCATION, COUNSELING, AND REFERRAL BASED ON THE PREVIOUS SCREENING Above screenings were performed and referrals were made as appropriately needed. EKG/ECG ORDERED. SCREENING SCHEDULE Health Maintenance Topic Date Due ??? DIABETES-HGB [...] Aged Out ??? MENINGOCOCCAL VACCINE Aged Out Labs ordered. Vaccinations up to date. EKG ordered. Health Maintenance: Discussed health maintenance issues including regular seat belt use, dental care, sunscreen use, good nutritional habits, and regular aerobic exercise. Healthy Living Tips Low fat, low cholesterol diet rich in lean proteins, whole grains, fruits and vegetables. Limit fast foods and processed foods ACSM activity recs: 150 minutes/week. 30 minutes most days of the week. LANCE COURT REPORTER documented in this encounter Plan of Treatment Not on file documented as of this encounter Goals Goal Patient Goal Type Associated Problems Recent Progress Patient-Stated? 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 8:[address] REPORTER) No Alisa Jaramillo HEMOGLOBIN A1C < 7.0 Result Component 5.4( 12:00 AM CDT) No Alisa Jaramillo documented as of this encounter Visit Diagnoses Diagnosis Medicare annual wellness visit, initial- Primary Routine general medical examination at a health care facility documented in this encounter Care Teams Cleat Maker Relationship Specialty Start [place] [address] [facility] [address] [place] [address] PCP - General Internal Medicine 03/31/18 05/30/22 Asha Narvaez APRN-CNP [address] [facility] [address] [place] [address] PCP - Attributed-MSSP 02/17/20 06/18/20 Etienne Florez MD Orthopedic Surgery 12/09/14 [place] [address] [facility] [address] [address] Oncology 09/15/17 [place] [address] [phone] Neurology 06/26/18 [place] [address] [facility] [address] [place] [address] Cardiovascular Disease 06/26/18 [place] [address] [address] Pulmonary Disease 06/26/18 Yuliya Ibarra MD [address] [place] [phone] Endocrinology 06/26/18 Phuong Callejas DPM [address] [place], [place] [id number] Podiatry 06/26/18 Sy Barrientos MD [address] [place] [address] [place] [address] Ophthalmology 06/26/18 [place] [address] [address] Pulmonary Disease 06/26/18 Rico Gasca MD [address] [place] [address] Urology 06/26/18 Elle Landaverde MD [address] [place] [address] Vascular Surgery 06/26/18 Kirk Truong MD [address] [place] [address] Gastroenterology 06/26/18 [place] [address] [phone] General Surgery 06/26/18 documented as of this encounter
--- OUTSIDE RECORDS SUMMARY | 2024-05-26 12:37 | XMS_ITS | Encounter Summary ---
Author Organization [facility] Address [address] [place] [address] Care Team Providers Care Quality Assurance Supervisor Chassis Name Role Phone Etienne Florez MD Unavailable Enrique Gonzalez MD Unavailable [phone] Theresa Camargo MD Primary Care Provider Nelson Ross MD Unavailable [phone] Laz Valencia MD Unavailable Russell oMran MD Unavailable Yuliya Ibarra MD Unavailable [phone] Phuong Callejas DPM Unavailable [phone] Sy Barrientos MD Unavailable [phone] Russell Moran MD Unavailable Rico Gasca MD Unavailable [phone] Elle Landaverde MD Unavailable Kirk Truong MD Unavailable Shira Love DO Unavailable [phone] Asha Narvaez CLIP WRAPPER[facility] Unavailable [phone] Encounter Details Date Type Department Care Team (Latest Contact Info) Description 05/22/2020 Travel Social History Tobacco Use Types Packs/Day [...] COVID-19? No / Unsure 05/22/2020 8:21 AM CLINICAL PSYCHOLOGIST LICENSED documented as of this encounter Functional Status [...] 140/90 Blood Pressure 127/52(2022 8:09 AM CLINICAL PSYCHOLOGIST LICENSED) No Alisa Jaramillo HEMOGLOBIN A1C < 7.0 Result Component 5.4( 12:00 AM CDT) No Alisa Jaramillo documented as of this encounter Visit Diagnoses Not on filedocumented in this encounter Care Teams Quality Assurance Supervisor Chassis Relationship Specialty [place] [address] [address] PCP - General Internal Medicine 03/31/18 05/30/22 Asha Narvaez APRN-OBSTETRICS TECHNICIAN [address] [facility] [address] [place] [address] PCP - Attributed-MSSP 02/17/20 06/18/20 Etienne Florez MD Orthopedic Surgery 12/09/14 [place] [address] [address] Oncology 09/15/17 [place] [address] [address] Neurology 06/26/18 [place] [address] [facility] [address] [place] [address] Cardiovascular Disease 06/26/18 [place] [address] [facility] [address] [place], [place] [id number] Pulmonary Disease 06/26/18 Yuliya Ibarra MD [address] [facility] [address] [place] [address] Endocrinology 06/26/18 Phuong Callejas DPM [address] [place], [place] [phone] Podiatry 06/26/18 Sy Barrientos MD [facility] [place] [place] [address] Ophthalmology 06/26/18 [place] [address] [address] Pulmonary Disease 06/26/18 Rico Gasca MD [address] [facility] [address] [place] [address] Urology 06/26/18 Elle Landaverde MD [address] [facility] [address] [place] [address] Vascular Surgery 06/26/18 Kirk Truong MD [address] [facility] [address], [place] [address] Gastroenterology 06/26/18 [place] [address] [place] [address] General Surgery 06/26/18 documented as of this encounter
--- OUTSIDE RECORDS SUMMARY | 2024-05-26 12:37 | XMS_ITS | Encounter Summary ---
Author Organization [facility] Address [address] [place] [address] Care Team Providers Care Frame Bander Name Role Phone Etienne Florez MD Unavailable [phone] Enrique Gonzalez MD Unavailable [phone] Theresa Camargo MD Primary Care Provider Nelson Ross MD Unavailable Laz Valencia MD Unavailable Russell Moran MD Unavailable Yuliya Ibarra MD Unavailable [phone] Phuong Callejas DPM Unavailable Sy Barrientos MD Unavailable Russell Moran MD Unavailable [phone] Rico Gasca MD Unavailable [phone] Elle Landaverde MD Unavailable [phone] Kirk Truong MD Unavailable Shira Love DO Unavailable [phone] Asha Narvaez APRN-[facility] Unavailable [phone] Encounter Details Date Type Department Care Team (Latest Contact Info) Description 03/30/2020 Travel Social History Tobacco Use Types Packs/Day [...] COVID-19? No / Unsure 03/30/2020 10:14 AM JAVA SQL DEVELOPER documented as of this encounter Functional Status [...] < 140/90 Blood Pressure 127/52(2022 8:09 AM JAVA SQL DEVELOPER) No Alisa Jaramillo HEMOGLOBIN A1C < 7.0 Result Component 5.4( 12:00 AM CDT) No Alisa Jaramillo documented as of this encounter Visit Diagnoses Not on filedocumented in this encounter Care Teams Frame Bander Relationship Specialty [place] [address] [address] PCP - General Internal Medicine 03/31/18 05/30/22 Asha Navraez APRN-MEDICAL BILLING MANAGER [address] [facility] [address] [place] [address] PCP - Attributed-MSSP 02/17/20 06/18/20 Etienne Florez MD Orthopedic Surgery 12/09/14 [place] [address] [facility] [address] [place] [address] Oncology 09/15/17 [place] [address] [address] Neurology 06/26/18 [place] [address] [facility] [address] [place] [address] Cardiovascular Disease 06/26/18 [place] [address] [facility] [address] [place] [address] Pulmonary Disease 06/26/18 Yuliya Ibarra MD [address] [facility] [address] [place] [address] Endocrinology 06/26/18 Phuong Callejas DPM [address] [place] [address] Podiatry 06/26/18 Sy Barrientos MD [address] [place] [address] Ophthalmology 06/26/18 [place] [address] [address] Pulmonary Disease 06/26/18 Rico Gasca MD [address] [facility] [address] [place] [address] Urology 06/26/18 Elle Landaverde MD [address] [facility] [address] [place] [address] Vascular Surgery 06/26/18 Kirk Truong MD [address] [facility] [address], [place] [address] Gastroenterology 06/26/18 [place] [address] [place] [address] General Surgery 06/26/18 documented as of this encounter
--- OUTSIDE RECORDS SUMMARY | 2024-05-26 12:37 | XMS_ITS | Encounter Summary ---
Author Organization [facility] Address [address] [facility] [place] [address] Care Team Providers Care Head Custodian Name Role Phone Etienne Florez MD Unavailable Enrique Gonzalez MD Unavailable [phone] Theresa Camargo MD Primary Care Provider Nelson Ross MD Unavailable [phone] Laz Valencia MD Unavailable Russell Moran MD Unavailable [phone] Yuliya Ibarra MD Unavailable [phone] Phuong Callejas DPM Unavailable [phone] Sy Barrientos MD Unavailable [phone] Russell Moran MD Unavailable Rico Gasca MD Unavailable Elle Landaverde MD Unavailable Kirk Truong MD Unavailable Shira Love DO Unavailable [phone] Theresa Camargo MD Unavailable [phone] Reason for Visit * Reason Onset Date Comments COVID-19 IMMUNIZATION/INJECTION 07/07/2020 Encounter Details Date Type Department Care Team (Latest Contact Info) Description 07/07/2020 10:45 AM TECHNOLOGY TRAINER Clinical Support [facility] - COVID Vax [address] [place] [address] Need for vaccination Social History Tobacco Use [...] COVID-19? No / Unsure 06/13/2020 11:38 AM TECHNOLOGY TRAINER documented as of this encounter Functional Status [...] this encounter Patient Instructions * Patient Instructions* Paulina Vigil APRN-SARA - 07/07/2020 10:57 AM TECHNOLOGY TRAINER Images from the original note were not included. Vaccine recipients are encouraged to enroll in the CDC V-SAFE program for post vaccination monitoring. Sign up with your smartphone's browser at 1234ENTER.cdc.gov or Aim your smartphone's camera at this code. COVID-19 Preparedness: Post-Vaccination Frequently Asked Questions Q. Do I need to continue to wear a mask and other PPE after both vaccine doses? A. Yes. While researchers and medical information officer learn more about the protection that COVID-19 vaccines provides, it will be important than ever for everyone to continue using all the tools available to us to help stop this pandemic, like covering your mouth and nose with a mask, washing your hands, and staying at least six feet away from others. Here are a few hanson reasons why it is important to continue with our current mitigation methods: ?? The initial clinical trials of the vaccine were not designed to determine whether vaccinated people could still spread the coronavirus without developing symptoms. Detailed data has not been released yet on whether the vaccines offer what???s known as sterilizing immunity, in which those who arevaccinated can???t contract or pass on the virus ?? The duration of protection from the vaccine against symptomatic disease is not yet known ?? The COVID-19 vaccines are not 100% effective. Effectiveness against symptomatic disease has beendocumented at 94-95% during the clinical trials. That means one out of every 20 people who get thisvaccine could still get a symptomatic infection. ?? Following the COVID-19 vaccination, immunity is not immediate. Q. Will [facility] change its current screening or testing protocols now that we have a vaccine? A. No. We do not anticipate changing any of our screening protocols, COVID testing protocols, or visitor policies in the near term until we have more data about the vaccine. Our infection control andinfectious disease team will continue to re-evaluate our guidelines as more data becomes avaialble. Q. What is the impact of the COVID-19 variants we hear about in the news? A. Viruses constantly change through mutation, and new variants of a virus are expected to occur over time. Multiple variants of the virus that causes COVID-19 have been documented in the [place] and globally during this pandemic. These variants haven't been around long enough to say for certain that the new vaccines are effective against it, but scientists aren't too worried about that -- lab studies suggest the vaccines will be protective against this strain. New variants will continue to appear as the effects of the COVID-19 pandemic continue. As new variants evolve scientists will continue to evaluate vaccine efficacy against the new variants. Given what we know about the coronavirus, it is unlikely that the virus would be able to rapidly change in such a way to escape the immune system. Escape from immunity requires that a virus accumulate a seriesof mutations, each allowing the virus to evade the effectiveness of the body???s defenses. Q. When can we stop wearing masks and social distancing? A.There is not enough information currently available to say if or when CDC or public health will stop recommending that people wear masks and avoid close contact with others to help prevent the spread of the virus. Experts need to understand more about the protection that COVID-19 vaccines providebefore making that decision. Other factors, including how many people get vaccinated and how the virus is spreading in communities, will also affect this decision. NOLOGY TRAINER documented in this encounter Progress Notes * Paulina Vigil APRN-CNP - 07/07/2020 10:57 AM CST COVID screening checklist was reviewed with the patient. The Information sheet was given prior to administration. Injection site aseptically cleansed and injection given per Immunization(s) protocol.See Imm/Injections activity for details. NOLOGY TRAINER documented in this encounter Plan of Treatment Not on file documented as of this encounter Goals Goal Patient Goal Type Associated Problems Recent Progress Patient-Stated? 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 8:09 AM TECHNOLOGY TRAINER) No Alisa Jaramillo HEMOGLOBIN A1C < 7.0 Result Component 5.4( 12:00 AM CDT) No Alisa Jaramillo documented as of this encounter Visit Diagnoses Diagnosis Need for vaccination- Primary Need for prophylactic vaccination and inoculation against unspecified single disease documented in this encounter Care Teams Head Custodian Relationship Specialty [place] [address] [facility] [address] [place] [address] PCP - General Internal Medicine 03/31/18 05/30/22 [place] [address] [facility] [address] [place] [address] PCP - Attributed-MSSP 06/19/20 08/16/20 Etienne Florez MD Orthopedic Surgery 12/09/14 [place] [address] [facility] [address] [place] [address] Oncology 09/15/17 [place] [address] [facility] [address] [place] [address] Neurology 06/26/18 [place] [address] [facility] [address] [place] [address] Cardiovascular Disease 06/26/18 Russell Moran MD [address] [place] [address] Pulmonary Disease 06/26/18 Yuliya Ibarra MD [address] [facility] [address] [place] [address] Endocrinology 06/26/18 Phuong Callejas DPM [address] [place] [address] Podiatry 06/26/18 Sy Barrientos MD [address] [place] [address] [place] [address] Ophthalmology 06/26/18 Russell Moran MD [address] [place] [address] Pulmonary Disease 06/26/18 Rico Gasca MD [address] [facility] [address] [place] [address] Urology 06/26/18 Elle Landaverde MD [address] [facility] [address] [place] [address] Vascular Surgery 06/26/18 Kirk Truong MD [address] [facility] [address] [place] [address] Gastroenterology 06/26/18 [place] [address] [place] [address] General Surgery 06/26/18 documented as of this encounter
--- OUTSIDE RECORDS SUMMARY | 2024-05-26 12:37 | XMS_ITS | Encounter Summary ---
Author Organization [facility] Address [address] [facility] [place] [address] Care Team Providers Care Pizzamaker Name Role Phone Etienne Florez MD Unavailable Enrique Gonzalez MD Unavailable [phone] Theresa Camargo MD Primary Care Provider Nelson Ross MD Unavailable [phone] Laz Valencia MD Unavailable Russell Moran MD Unavailable Yuliya Ibarra MD Unavailable Phuong Callejas DPM Unavailable Sy Barrientos MD Unavailable Russell Moran MD Unavailable [phone] Rico Gasca MD Unavailable Elle Landaverde MD Unavailable Kirk Truong MD Unavailable [phone] Shira Love DO Unavailable [phone] Asha Narvaez Heidy [facility] Unavailable [phone] Reason for Visit * Oncology Prior Authorization (Routine) - Closed Specialty Diagnoses / Procedures Referred By Contac t Referred To Contact Diagnoses Malignant neoplasm of upper-outer quadrant of left breast in female, estrogen receptor positive (HCC) Osteopenia of multiple sites Aromatase inhibitor use Procedures ONCOLOGY MEDICATION [place] [address] [facility] [address] [place] [address] [facility] [id number] [place] [address] [address] [place] [address] Referral ID Status Reason Start Date Expiration Date Visits Re quested Visits Authorized [id number] Closed 10/29/2017 05/18/2023 1 99 Encounter Details Date Type Department Care Team (Latest Contact Info) Description 06/09/2020 8:30 AM TEACHER SELECTION SPECIALIST - 06/09/2020 11:59 PM TEACHER SELECTION SPECIALIST Hospital Encounter Infusion Services at [facility] [address] [facility] [address] [place] [address] [place] [address] [facility] [address] [place] [address] Discharge Disposition: Home or Self Care Social [...] COVID-19? No / Unsure 05/30/2020 12:11 PM TEACHER SELECTION SPECIALIST documented as of this encounter Functional Status [...] week on Friday and 05/30/2022 nystatin (MYCOSTATIN) 272466 UNIT/GM powder Apply to affected area 2 times daily 60 g 04/12/2019 09/14/2020 nystatin-triamcinolone (MYCOLOG) 754543-7.1 UNIT/GM-% cream Apply to affected area 2 [...] 07/21/2019 09/14/2020 documented as of this encounter Progress Notes * Gail Sol RN - 06/09/2020 10:14 AM CST Perla Edward 1940 06/09/2020 Patient completed scheduled prolia at [facility]. Dr. Gonzalez wheeled pt into room and verbal order that pt ok to receive prolia today. Pt and daughter have no questions/concerns. Medications given on 06/09/2020 MEDICATIONS FOR CURRENT ENCOUNTER: ?? SCHEDULED MEDICATIONS: ? [COMPLETED] denosumab (PROLIA) SC injection SOLN 60 mg, Subcutaneous, Once ?? CONTINUOUS MEDICATIONS: ?? No current facility-administered medications for this encounter. ?? PRN MEDICATIONS: ?? No current facility-administered medications for this encounter. HER SELECTION SPECIALIST documented in this encounter Plan of Treatment Not on file documented as of this encounter Goals Goal Patient Goal Type Associated Problems Recent Progress Patient-Stated? 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 8:09 AM TEACHER SELECTION SPECIALIST) No Alisa Jaramillo HEMOGLOBIN A1C < [...] Action Action Date Dose Rate Site denosumab (PROLIA) SC injection SOLN 60 mg 60 mg, Subcutaneous, ONCE, 1 dose, On Fri06/09/20 at 0945 $ Given 06/09/2020 9:43 AM TEACHER SELECTION SPECIALIST 60 mg Abdominal Tissue documented in this encounter Care Teams Pizzamaker Relationship Specialty [place] [address] [facility] [address] [place] [address] PCP - General Internal Medicine 03/31/18 05/30/22 Asha Narvaez, EARLY CHILDHOOD ASSOCIATE TEACHER-TRANSPORTATION ECONOMICS TEACHER [address] [facility] [address] [place] [address] PCP - Attributed-MSSP 02/17/20 06/18/20 Etienne Florez MD Orthopedic Surgery 12/09/[address] [place] [address] [facility] [address] [place] [address] Oncology 09/15/17 [place] [address] [facility] [address] [place] [address] Neurology 06/26/18 [place] [address] [facility] [address] [place] [address] Cardiovascular Disease 06/26/18 [place] [address] [facility] [address] [place] [address] Pulmonary Disease 06/26/18 Yuliya Ibarra MD [address] [facility] [address] [place] [id number] Endocrinology 06/26/18 Phuong Callejas DPM [address] [place] [address] Podiatry 06/26/18 Sy Barrientos MD [address] [place] [address] [place] [address] Ophthalmology 06/26/18 [place] [address] [address] Pulmonary Disease 06/26/18 Rico Gasca MD [address] [facility] [address] [place] [address] Urology 06/26/18 Elle Landaverde MD [address] [facility] [address] [place] [address] Vascular Surgery 06/26/18 Kirk Truong MD [address] [facility] [address] [place] [address] Gastroenterology 06/26/18 [place] [address] [place] [address] General Surgery 06/26/18 documented as of this encounter
--- OUTSIDE RECORDS SUMMARY | 2024-05-26 12:37 | XMS_ITS | Encounter Summary ---
Author Organization [facility] Address [address] [facility] [place] [address] Care Team Providers Care Microsoft Systems Engineer Name Role Phone Etienne Florez MD Unavailable Enrique Gonzalez MD Unavailable [phone] Theresa Camargo MD Primary Care Provider Nelson Ross MD Unavailable Laz Valencia MD Unavailable Russell Moran MD Unavailable Yuliya Ibarra MD Unavailable [phone] Phuong Callejas DPM Unavailable Sy Barrientos MD Unavailable Russell Moran MD Unavailable [phone] Rico Gasca MD Unavailable Elle Landaverde MD Unavailable [phone] Kirk Truong MD Unavailable [phone] Shira Love DO Unavailable [phone] Asha Narvaez MANAGER OUTPATIENT-FIELD REPRESENTATIVE/HEALTH EDUCATION Unavailable [phone] Brooke Haynes MANAGER OUTPATIENT-FIELD REPRESENTATIVE/HEALTH EDUCATION Unavailable [phone] Reason for Visit * Reason Onset Date Comments Question 09/13/2020 Encounter Details Date Type Department Care Team (Late st Contact Info) Description 09/13/2020 Telephone [facility] Neurosciences [address] [facility] [address] [place] [address] [place] [address] [facility] [address] [place] [address] Question Social History Tobacco Use Types Packs/Day [...] encounter Miscellaneous Notes * Telephone Encounter - Bailee Butt - 09/13/2020 12:22 PM CDT rec'd a call from pt's daughter stating that pt is unable to walk and using a potty chair. Daughterwould like to know if it is a progression of her disease or a muscle strain, said by pt. Daughter would like to know if she needs to be seen by you or see a different provider like her PCP. Daughter states that pt said this has happened before and and usually goes away, but wanted to be sure before the weekend gets here. Please advise. documented in this encounter Plan of Treatment Not on file documented as of this encounter Goals Goal Patient Goal Type Associated Problems Recent Progress Patient-Stated? 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 8:09 AM CORPORATE BOND TRADER) No Alisa Jaramillo HEMOGLOBIN A1C < 7.0 Result Component 5.4( 12:00 AM CDT) No Alisa Jaramillo documented as of this encounter Visit Diagnoses Not on filedocumented in this encounter Additional Health Concerns Infection Onset Date Last Indicated Resolved Time COVID-19 Under Investigation 09/26/2020 09/26/2020 09/27/2020 7:46 AM CDT documented as of this encounter Care Teams Microsoft Systems Engineer Relationship Specialty Start [place] [address] [facility] [address] [place] [address] PCP - General Internal Medicine 03/31/18 05/30/22 Asha Narvaez APRN-FIELD REPRESENTATIVE/HEALTH EDUCATION [address] [facility] [address] [place] [address] PCP - Attributed-MSSP 08/17/20 10/16/20 Brooke Haynes APRN-FIELD REPRESENTATIVE/HEALTH EDUCATION [address] [facility] [address] [place] [address] PCP - Attributed-MSSP 10/17/20 09/15/21 Etienne Florez MD Orthopedic Surgery 12/09/14 [place] [address] [place] [address] Oncology 09/15/17 [place] [address] [place] [address] Neurology 06/26/18 [place] [address] [facility] [address] [place] [address] Cardiovascular Disease 06/26/18 Russell Moran MD [address] [place] [address] Pulmonary Disease 06/26/18 Yuliya Ibarra MD [address] [facility] [address] [place] [address] Endocrinology 06/26/18 Phuong Callejas DPM [address] [place], [place] [id number] Podiatry 06/26/18 Sy Barrientos MD [address] [place] [address] [place] [address] Ophthalmology 06/26/18 Russell Moran MD [address] [place] [address] Pulmonary Disease 06/26/18 Rico Gasca MD [address] [facility] [address] [place] [address] Urology 06/26/18 Elle Landaverde MD [address] [facility] [address] [place] [address] Vascular Surgery 06/26/18 Kirk Truong MD [address] [facility] [address] [place] [address] Gastroenterology 06/26/18 [place] [address] [facility] [place] [address] General Surgery 06/26/18 documented as of this encounter
--- OUTSIDE RECORDS SUMMARY | 2024-05-26 12:37 | XMS_ITS | Encounter Summary ---
Author Organization [facility] Address [address] [facility] [address] Care Team Providers Care Press Operator [employer] Name Role Phone Etienne Florez MD Unavailable Enrique Gonzalez MD Unavailable [phone] Theresa Camargo MD Primary Care Provider Nelson Ross MD Unavailable Laz Valencai MD Unavailable Russell Moran MD Unavailable Yuliya Ibarra MD Unavailable Phuong Callejas DPM Unavailable Sy Barrientos MD Unavailable Russell Moran MD Unavailable Rico Gasca MD Unavailable [phone] Elle Landaverde MD Unavailable Kirk Truong MD Unavailable [phone] Shira Love DO Unavailable [phone] Asha Narvaez [facility] Unavailable [phone] Reason for Referral * Radiology Services (Routine) - Closed Specialty Diagnoses / Procedures Referred By Alejandrina vale Referred To Contact Diagnoses Malignant neoplasm of upper-outer quadrant of left breast in female, estrogen receptor positive (HCC) Procedures MAMMO BILAT DIAGNOSTIC [place] [address] [address] Referral ID Status Reason Start Date Expiration Date Visits Re quested Visits Authorized [id number] Closed 02/14/2020 02/13/2021 1 1 Reason for Visit * Radiology Services (Routine) - Closed Specialty Diagnoses / Procedures Referred By Alejandrina vale Referred To Contact Diagnoses Malignant neoplasm of upper-outer quadrant of left breast in female, estrogen receptor positive (HCC) Procedures MAMMO BILAT DIAGNOSTIC [place]AM[place] [address] [address] Referral ID Status Reason Start Date Expiration Date Visits Re quested Visits Authorized [id number] Closed 02/14/2020 02/13/2021 1 1 Encounter Details Date Type Department Care Team (Latest Contact Info) Description 02/23/2020 9:30 AM CDT Hospital Encounter [facility] Health Breast Care [address] [address] [place] [address] [address] Discharge Disposition: Home or Self [...] (ELAVIL) 25 MG tablet TAKE 2 TABLETS AT BEDTIME 180 tablet 4 06/29/2019 03/13/2020 anastrozole (ARIMIDEX) 1 MG tabletIndications:Randell y 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 Take 1 tablet by mouth once daily for 90 days Reasons: 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 30 tablet 3 10/15/2017 06/21/2020 aspirin (ASPIRIN) 81 MG tablet Take 81 mg by mouth once daily 09/20/2020 calcium carbonate-vitamin D (CALTRATE 600+D) 600-400 MG-UNIT tablet Take 1 tablet by mouth 2 times daily 60 tablet 10/29/2017 06/09/2020 canagliflozin (INVOKANA) 100 MG tablet Take 100 mg by mouth daily before breakfast 07/21/2019 05/21/2022 clopidogrel (PLAVIX) 75 MG tablet TAKE 1 TABLET AT BEDTIME 90 tablet 4 01/07/2019 05/01/2020 Cranberry-Vitamin C (AZO CRANBERRY URINARY TRACT) 250-60 [...] mg by mouth 2 times daily 09/14/2020 furosemide (LASIX) 40 MG tablet Take 1 [...] nightly as needed for Dry Eyes 09/14/2020 latanoprost (XALATAN) 0.005 % ophthalmic solution Instill 1 drop into both eyes at bedtime 09/14/2020 levothyroxine (SYNTHROID) 25 MCG tablet Take 25 mcg by mouth daily before breakfast 09/14/2020 menthol-zinc oxide (CALMOSEPTINE) 0.44-20.6 % ointment Apply to affected area as needed for Other 09/14/2020 metOLazone (ZAROXOLYN) 2.5 MG tablet Take 1 tablet by mouth twice a week on Friday and 05/30/2022 MYRBETRIQ 50 MG tablet Take 25 mg by mouth once daily 06/18/2018 03/30/2020 nystatin (MYCOSTATIN) 457393 UNIT/GM powder Apply to affected area 2 times daily 60 g 04/12/2019 09/14/2020 nystatin-triamcinolone (MYCOLOG) 534529-1.1 UNIT/GM-% cream Apply to affected area 2 times daily 30 g 02/11/2020 09/14/2020 polyethyl glycol-propyl glycol (SYSTANE) 0.4-0.3 % ophth solution Instill 1 drop into both eyes once as needed 09/14/2020 polyethylene glycol 3350 (MIRALAX) packet Take 17 g by mouth once daily 08/09/2020 potassium chloride ER (KLOR-CON) 20 MEQ tablet TAKE 1 TABLET BY MOUTH FOUR TIMES A DAY 120 tablet 3 01/17/2020 04/24/2020 rosuvastatin (CRESTOR) 10 MG tablet Take 1 tablet by mouth at bedtime 90 tablet 1 01/31/2020 05/01/2020 verapamil SR 24hr (VERELAN) 120 MG capsule [...] < 140/90 Blood Pressure 127/52(2022 8:09 AM BEAD FILLER) No Alisa Jaramillo HEMOGLOBIN A1C < 7.0 Result Component 5.4( 12:00 AM CDT) No Alisa Jaramillo documented as of this encounter Procedures Procedure Name Priority Date/Time Associated Diagnosis Comments MAMMO BILAT DIAGNOSTIC Routine 02/23/2020 10:05 AM CDT Malignant neoplasm of upper-outer quadrant of left breast in female, estrogen receptor positive (HCC) documented in this encounter Results * MAMMO BILAT DIAGNOSTIC (02/23/2020 10:05 AM CDT) Anatomical Region Laterality Modality Breast Bilateral Mammography [...] if suspicious findings are present clinically. An [employer]. [facility] Breast [facility] utilizes [employer] as a reminder system to notify patients of their next recommended mammograms. Edited by Susan Velazquez on 02/23/2020 10:15 AM *Reading Radiologist: Dianna Simmons on 02/23/2020 at 10:24 AM Enrique Gonzalez MD MAMMO ORDERABLES documented in this encounter Visit Diagnoses Diagnosis Malignant neoplasm of upper-outer quadrant of left breast in female, estrogen receptor positive (HCC) documented in this encounter Care Teams Press Operator [employer] Products Relationship Specialty [place] [address] [place], [place] [id number] PCP - General Internal Medicine 03/31/18 05/30/22 Asha Narvaez, HOSPITAL WARD CLERK-STONE PAVER [address] [place], [place] [id number] PCP - Attributed-MSS 02/17/20 06/18/20 Etienne Florez MD Orthopedic Surgery 12/09/14 [place] [address] [place] [phone] Oncology 09/15/17 [place] [address] [facility] [address] [place] [address] Neurology 06/26/18 [place] [address] [facility] [address] [place] [address] Cardiovascular Disease 06/26/18 [place] [address] [address] Pulmonary Disease 06/26/18 Yuliya Ibarra MD [address] [facility] [address] [place] [address] Endocrinology 06/26/18 Phuong Callejas DPM [address] [place], [place] [phone] Podiatry 06/26/18 Sy Barrientos MD [address] [place] [address] [place] [address] Ophthalmology 06/26/18 [place] [address] [place] [id number] Pulmonary Disease 06/26/18 Rico Gasca MD [address] [facility] [address] [place] [address] Urology 06/26/18 Elle Landaverde MD [address] [facility] [address] [place] [address] Vascular Surgery 06/26/18 Kirk Truong MD [address] [facility] [address] [address] Gastroenterology 06/26/18 [place] [address] [address] [place] [address] General Surgery 06/26/18 documented as of this encounter
--- OUTSIDE RECORDS SUMMARY | 2024-05-26 12:38 | XMS_ITS | Encounter Summary ---
Author Organization [facility] Address [address] [facility] [place] [address] Care Team Providers Care Kiln Labourer Name Role Phone Etienne Florez MD Unavailable Enrique Gonzalez MD Unavailable [phone] Theresa Camargo MD Primary Care Provider [phone] Nelson Ross MD Unavailable [phone] Laz Valencia MD Unavailable Russell Moran MD Unavailable [phone] Yuliya Ibarra MD Unavailable Phuong Callejas DPM Unavailable Sy Barrientos MD Unavailable Russell Moran MD Unavailable Rico Gasca MD Unavailable Elle Landaverde MD Unavailable [phone] Kirk Truong MD Unavailable [phone] Shira Love DO Unavailable [phone] Theresa Camargo MD Unavailable [phone] Reason for Visit * Reason Onset Date Comments Refill Request 08/27/2019 Encounter Details Date Type Department Care Team (Late st Contact Info) Description 08/27/2019 Refill [facility] [address] [facility] [address] [place] [address] [place] [address] [facility] [address] [place] [address] Refill Request Social History Tobacco [...] encounter Miscellaneous Notes * Telephone Encounter - Kelly Bashir - 08/27/2019 3:16 PM CDT Patient advised * Telephone Encounter - Kelly Bashir - 08/27/2019 2:23 PM CDT Requested Prescriptions Pending Prescriptions Disp Refills ??? potassium chloride ER (KLOR-CON) 10 MEQ tablet 240 tablet 1 Sig: TAKE 4 TABLETS WITH BREAKFAST documented in this encounter Plan of Treatment Not on file documented as of this encounter Goals Goal Patient Goal Type Associated Problems Recent Progress Patient-Stated? 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 8:09 AM EVP BUSINESS DEVELOPMENT) No VilmasarthakAlisa marks HEMOGLOBIN A1C < 7.0 Result Component 5.4( 12:00 AM CDT) No Alisa Jaramillo documented as of this encounter Visit Diagnoses Not on filedocumented in this encounter Care Teams Kiln Labourer Relationship Specialty [place] [address] [facility] [address] [place] [address] PCP - General Internal Medicine 03/31/18 05/30/22 [place] [address] [facility] [address] [place] [address] PCP - Attributed-MSSP 07/18/19 10/17/19 Etienne Florez MD Orthopedic Surgery 12/09/14 [place] [address] [phone] Oncology 09/15/17 [place] [address] [facility] [address] [place] [address] Neurology 06/26/18 [place] [address] [phone] Cardiovascular Disease 06/26/18 [place] [address] [phone] Pulmonary Disease 06/26/18 Yuliya Ibarra MD [address] [place] [address] Endocrinology 06/26/18 Phuong Callejas DPM [address] [place], [place] [address] Podiatry 06/26/18 Sy Barrientos MD [address] [place] [address] [place] [address] Ophthalmology 06/26/18 [place] [address] [phone] Pulmonary Disease 06/26/18 Rico Gasca MD [address] [facility] [address] [place] [address] Urology 06/26/18 Elle Landaverde MD [address] [facility] [address] [place] [address] Vascular Surgery 06/26/18 Kirk Truong MD [address] [facility] [address] [place] [address] Gastroenterology 06/26/18 [place] [address] [address] General Surgery 06/26/18 documented as of this encounter
--- OUTSIDE RECORDS SUMMARY | 2024-05-26 12:38 | XMS_ITS | Encounter Summary ---
Author Organization [facility] Address [address] [facility] [place] [address] Care Team Providers Care Soil Specialist Name Role Phone Etienne Florez MD Unavailable Enrique Gonzalez MD Unavailable [phone] Theresa Camargo MD Primary Care Provider Nelson Ross MD Unavailable Laz Valencia MD Unavailable Russell Moran MD Unavailable [phone] Yuliya Ibarra MD Unavailable Phuong Callejas DPM Unavailable Sy Barrientos MD Unavailable [phone] Russell Moran MD Unavailable Rico Gasca MD Unavailable Elle Landaverde MD Unavailable Kirk Truong MD Unavailable Shira Love DO Unavailable [phone] Theresa Camargo MD Unavailable [phone] Encounter Details Date Type Department Care Team (Latest Contact Info) Description 07/26/2019 Travel Social History Tobacco Use Types Packs/Day [...] < 140/90 Blood Pressure 127/52(2022 8:09 AM EMBOSSING PRESS OPERATOR) No Alisa Jaramillo HEMOGLOBIN A1C < 7.0 Result Component 5.4( 12:00 AM CDT) No Alisa Jaramillo documented as of this encounter Visit Diagnoses Not on filedocumented in this encounter Care Teams Soil Specialist Relationship Specialty Start [place] [address] [facility] [address] [place] [address] PCP - General Internal Medicine 03/31/18 05/30/22 [place] [address] [facility] [address] [place] [address] PCP - Attributed-MSSP 07/18/19 10/17/19 Etienne Florez MD Orthopedic Surgery 12/09/14 [place] [address] [phone] Oncology 09/15/17 [place] [address] [phone] Neurology 06/26/18 L[place] [address] [place] [address] [address] [place] [address] Cardiovascular Disease 06/26/18 Russell Moran MD [address] [place] [address] Pulmonary Disease 06/26/18 Yuliya Ibarra MD [address] [facility] [address] [place] [address] Endocrinology 06/26/18 Phuong Callejas DPM [address] [place], [place] [address] Podiatry 06/26/18 Sy Barrientos MD [address] [place] [address] [place] [address] Ophthalmology 06/26/18 Russell Moran MD [address] [place] [address] Pulmonary Disease 06/26/18 Rico Gasca MD [address] [address] Urology 06/26/18 Elle Landaverde MD [address] [address] Vascular Surgery 06/26/18 Kirk Truong MD [address] [address] Gastroenterology 06/26/18 [place] [address] [facility] [address] [place] [address] General Surgery 06/26/18 documented as of this encounter
--- OUTSIDE RECORDS SUMMARY | 2024-05-26 12:38 | XMS_ITS | Encounter Summary ---
Author Organization [facility] Address [address] [facility] [place] [address] Care Team Providers Care Tailman Name Role Phone Etienne Florez MD Unavailable [phone] Enrique Gonzalez MD Unavailable [phone] Theresa Camargo MD Primary Care Provider Nelson Ross MD Unavailable Laz Valencia MD Unavailable Russell Moran MD Unavailable [phone] Yuliya Ibarra MD Unavailable [phone] Phuong Callejas DPM Unavailable Sy Barrientos MD Unavailable Russell Moran MD Unavailable Rico Gasca MD Unavailable Elle Landaverde MD Unavailable Kirk Truong MD Unavailable Shira Love Unavailable [phone] Theresa Camargo MD Unavailable [phone] Encounter Details Date Type Department Care Team (Late st Contact Info) Description 11/26/2019 Orders Only [facility] [address] [place] [address] [place] [address] [address] Malignant neoplasm of upper-outer quadrant of left breast in female, estrogen receptor positive (HCC); Osteopenia of multiple sites; Use of aromatase [...] have Coronavirus / COVID-19? No / Unsure 11/29/2019 11:06 AM CDT documented as of this encounter [...] < 140/90 Blood Pressure 127/52(2022 8:09 AM DEVELOPMENTAL PSYCHOLOGIST) No Alisa Jaramillo HEMOGLOBIN A1C < 7.0 Result Component 5.4(07/23/202 1 12:00 AM CDT) Alisa Ware documented as of this encounter Procedures Procedure Name Priority Date/Time Associated Diagnosis Comments COMPREHENSIVE METABOLIC PANEL STAT 11/26/2019 9:45 AM CDT Malignant neoplasm of upper-outer quadrant of left breast in female, estrogen receptor positive (HCC) Osteopenia of multiple sites Use of aromatase inhibitors documented in this encounter Results * (ABNORMAL) COMPREHENSIVE METABOLIC PANEL (11/26/2019 9:45 AM CDT) Glucose 142(H) 70 - 105 mg/dL 11/26/2019 10:12 AM CDT [facility] Sodium 139 136 - 145 mmol/L 11/26/2019 10:12 AM CDT [facility] Potassium 3.7 3.5 - 5.1 mmol/L 11/26/2019 10:12 AM CDT [facility] Chloride 100 98 - 107 mmol/L 11/26/2019 10:12 AM CDT [facility] CO2 29 23 - 31 mmol/L 11/26/2019 10:12 AM CDT [facility] Calcium 11.3(H) 8.4 - 10.4 mg/dL 11/26/2019 10:12 AM CDT [facility] Anion Gap 10 8 - 16 mmol/L 11/26/2019 10:12 AM CDT [facility] BUN 26(H) 9.8 - 20.1 mg/dL 11/26/2019 10:12 AM CDT [facility] Creatinine 1.00 0.57 - 1.11 mg/dL 11/26/2019 10:12 AM CDT [facility] Alkaline Phosphatase 93 40 - 150 U/L 11/26/2019 10:12 AM CDT [facility] ALT 22 0 - 61 U/L 11/26/2019 10:12 AM CDT [facility] AST 17 5 - 34 U/L 11/26/2019 10:12 AM CDT [facility] Protein Total 7.0 6.4 - 8.3 gm/dL 11/26/2019 10:12 AM CDT [facility] Albumin 4.0 3.2 - 4.6 gm/dL 11/26/2019 10:12 AM CDT [facility] Bilirubin Total 0.3 0.2 - 1.0 mg/dL 11/26/2019 10:12 AM CDT [facility] eGFR by MDRD 53 mL/min/1.7 3m2 11/26/2019 10:12 AM CDT [facility] eGFR by MDRD >60 mL/min/1.7 3m2 11/26/2019 10:12 AM CDT [facility] Blood BLOOD SPECIMEN / Unknown Venipuncture / Unknown 11/26/2019 9:45 AM CDT 11/26/2019 9:52 AM CDT Enrique Gonzalez MD LAB - CHEMISTRY ROWAN QUIROZ [facility] Organization Address City/State/ZIP Co de Phone Number [facility] [address] [place], [place] [id number] documented in this encounter Visit Diagnoses Diagnosis Malignant neoplasm of upper-outer quadrant of left breast in female, estrogen receptor positive (HCC) Osteopenia of multiple sites Use of aromatase inhibitors documented in this encounter Care Teams Tailman Relationship Specialty Start [place] [address] [facility] [address] [place] [address] PCP - General Internal Medicine 03/31/18 05/30/22 [place] [address] [facility] [address] [place], [place] [phone] PCP - Attributed-MSSP 11/17/19 02/16/20 Etienne Florez MD Orthopedic Surgery 12/09/14 [place] [address] [facility] [address] [place] [address] Oncology 09/15/17 [place] [address] [phone] Neurology 06/26/18 [place] [address] [facility] [address] [place] [address] Cardiovascular Disease 06/26/18 [place] [address] [place] [address] [place] [address] Pulmonary Disease 06/26/18 Yuliya Ibarra MD [address] [place] [address] Endocrinology 06/26/18 Phuong Callejas DPM [address] [place], [place] [phone] Podiatry 06/26/18 Sy Barrientos MD [address] [place] [address] [place] [address] Ophthalmology 06/26/18 [place] [address] [id number] Pulmonary Disease 06/26/18 Rico Gasca MD [address] [place] [address] Urology 06/26/18 Elle Landaverde MD [address] [place] [address] Vascular Surgery 06/26/18 Kirk Truong MD [address] [place] [address] Gastroenterology 06/26/18 [place] [address] [place] [address] [place] [address] General Surgery 06/26/18 documented as of this encounter
--- OUTSIDE RECORDS SUMMARY | 2024-05-26 12:38 | XMS_ITS | Encounter Summary ---
Author Organization [facility] Address [address] [facility] [place] [address] Care Team Providers Care Bureau Director Name Role Phone Etienne Florez MD Unavailable Enrique Gonzalez MD Unavailable [phone] Theresa Camargo MD Primary Care Provider [phone] Nelson Ross MD Unavailable [phone] Laz Valencia MD Unavailable Russell Moran MD Unavailable [phone] Yuliya Ibarra MD Unavailable [phone] Phuong Callejas DPM Unavailable Sy Barrientos MD Unavailable Russell Moran MD Unavailable [phone] Rico Gasca MD Unavailable Elle Landaverde MD Unavailable [phone] Kirk Truong MD Unavailable [phone] Shira Love DO Unavailable [phone] Theresa Camargo MD Unavailable [phone] Reason for Visit * Reason Onset Date Comments Care Management 06/09/2019 Encounter Details Date Type Department Care Team (Late st Contact Info) Description 06/09/2019 Telephone [facility] [employer] [facility] [address] [place] [address], [address] [address] Hussain Norris MD [address] [place] [address] [address] [place] [address] Care Management Social History Tobacco Use Types Packs/Day Years [...] encounter Miscellaneous Notes * Telephone Encounter - Nelly Beasley - 06/10/2019 9:09 AM CST Called [facility] @ and spoke with Nancy. Nancy is going to fax us an order so we can order catheter changes for this patient. RAL OFFICE REPAIRER * Telephone Encounter - Nelly Beasley - 06/09/2019 4:07 PM CST Patient called back and stated that Eric @ [facility] changed her catheter today. She said thatEric needs us to send an order to [employer] phone . Eric's # . RAL OFFICE REPAIRER * Telephone Encounter - Nelly Beasley - 06/09/2019 1:53 PM CST Spoke with patient's daughter, Ange, she believes that the home health nurse said she will change the catheter. She is going to have Perla call us back. We will need her home health nurse to send us an order for catheter changes every 3 weeks otherwise she will need to come into the office for this. RAL OFFICE REPAIRER * Telephone Encounter - Nelly Beasley - 06/09/2019 1:53 PM CST ----- Message from Laisha Diaz sent at 06/09/2019 1:40 PM CENTRAL OFFICE REPAIRER ----- [email or web address] can not travel to her because she [place] to far. Will her current home health company change her caths? If not she will need to come here to have it done every 3 weeks. RAL OFFICE REPAIRER documented in this encounter Plan of Treatment Not on file documented as of this encounter Goals Goal Patient Goal Type Associated Problems Recent Progress Patient-Stated? 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 8:09 AM CENTRAL OFFICE REPAIRER) No Alisa Jaramillo HEMOGLOBIN A1C < 7.0 Result Component 5.4( 12:00 AM CDT) No Alisa Jaramillo documented as of this encounter Visit Diagnoses Not on filedocumented in this encounter Care Teams Bureau Director Relationship Specialty Start [place] [address] [address] PCP - General Internal Medicine 03/31/18 05/30/22 [place] [address] [facility] [address] [place] [address] PCP - Attributed-MSSP 04/18/19 06/18/19 Etienne Florez MD Orthopedic Surgery 12/09/14 [place] [address] [facility] [address] [address] [place] [address] Oncology 09/15/17 [place] [address] [facility] [address] [facility] [address] [place] [address] Neurology 06/26/18 [place] [address] [facility] [address] [place] [address] Cardiovascular Disease 06/26/18 [place] [address] [id number] Pulmonary Disease 06/26/18 Yuliya Ibarra MD [address] [facility] [address] [place] [address] Endocrinology 06/26/18 Phuong Callejas DPM [address] [place], [place] [address] Podiatry 06/26/18 Sy Barrientos MD [address] [place] [address] [place] [address] Ophthalmology 06/26/18 [place] [address] [place] [address] [address] [place] [address] Pulmonary Disease 06/26/18 Rico Gasca MD [address] [facility] [address] [place] [address] Urology 06/26/18 Elle Landaverde MD [address] [facility] [address] [place] [address] Vascular Surgery 06/26/18 Kirk Truong MD [address] [facility] [address] [place] [address] Gastroenterology 06/26/18 [place] [address] [place] [address] General Surgery 06/26/18 documented as of this encounter
--- OUTSIDE RECORDS SUMMARY | 2024-05-26 12:38 | XMS_ITS | Encounter Summary ---
Author Organization [facility] Address [address] [facility] [place] [address] Care Team Providers Care Pit Hoist Operator Name Role Phone Etienne Florez MD Unavailable Enrique Gonzalez MD Unavailable [phone] Theresa Camargo MD Primary Care Provider Nelson Ross MD Unavailable Laz Valencia MD Unavailable Russell Moran MD Unavailable Yuliya Ibarra MD Unavailable [phone] Phuong Callejas DPM Unavailable Sy Barrientos MD Unavailable [phone] Russell Moran MD Unavailable Rico Gasca MD Unavailable [phone] Elle Landaverde MD Unavailable [phone] Kirk Truong MD Unavailable [phone] Shira Love DO Unavailable Theresa Camargo MD Unavailable [phone] Reason for Visit * Reason Onset Date Comments Question 01/14/2020 Encounter Details Date Type Department Care Team (Late st Contact Info) Description 01/14/2020 Telephone [facility] [address] [facility] [address] [place] [address] [place] [address] [facility] [address] [place] [address] Question Social History Tobacco Use [...] Telephone Encounter - Bonny Ballesteros APRN-CNP - 01/17/2020 10:43 AM CDT If she hit her head she must go and have this checked out in the ER This is important to rule out brain bleeding They can check out the UA in the ER also I spoke to the home nurse Je * Telephone Encounter - Aleisha Malhotra MA - 01/17/2020 10:25 AM CDT Message routed to Bonny * Telephone Encounter - Wanda Castro - 01/14/2020 3:54 PM CDT Nurse with [facility] states pt reported a fall on 01/09. States she was emptying her catheter and the walker rolled away. There is a 2 x 3 hematoma in medial occipital. No bruising/bleeding or redness. Requesting a verbal for UA as pt states she noticed some blood in the urine. Je states tubing wasflushed today with no blood noticed. Urine is clear did notice some sedimentation but since pt reported blood needing verbal for UA documented in this encounter Plan of Treatment Not on file documented as of this encounter Goals Goal Patient Goal Type Associated Problems Recent Progress Patient-Stated? 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 8:09 AM .NET DEVELOPER) No Alisa Jaramillo HEMOGLOBIN A1C < 7.0 Result Component 5.4( 12:00 AM CDT) No Alisa Jaramillo documented as of this encounter Visit Diagnoses Not on filedocumented in this encounter Care Teams Pit Hoist Operator Relationship Specialty [place] [address] [facility] [address] [place] [address] PCP - General Internal Medicine 03/31/18 05/30/22 [place] [address] [facility] [address] [place] [address] PCP - Attributed-MSSP 11/17/19 02/16/20 Etienne Florez MD Orthopedic Surgery 12/09/14 [place] [address] [facility] [address] [place] [address] Oncology 09/15/17 [place] [address] [facility] [address] [place] [address] Neurology 06/26/18 [place] [address] [facility] [address] [place] [address] Cardiovascular Disease 06/26/18 [place] [address] [address] Pulmonary Disease 06/26/18 Yuliya Ibarra MD [address] [facility] [address] [place] [address] Endocrinology 06/26/18 Phuong Callejas DPM [address] [place] [address] Podiatry 06/26/18 Sy Barrientos MD [address] [place] [address] Ophthalmology 06/26/18 [place] [address] [address] Pulmonary Disease 06/26/18 Rico Gasca MD [address] [facility] [address] [place] [address] Urology 06/26/18 Elle Landaverde MD [address] [facility] [address] [place] [address] Vascular Surgery 06/26/18 Kirk Truong MD [address] [facility] [address] [place] [address] Gastroenterology 06/26/18 [place] [address] [place] [address] General Surgery 06/26/18 documented as of this encounter
--- OUTSIDE RECORDS SUMMARY | 2024-05-26 12:38 | XMS_ITS | Encounter Summary ---
Author Organization [facility] Address [address] [place] [address] Care Team Providers Care Grants Administrator Name Role Phone Etienne Florez MD Unavailable Enrique Gonzalez MD Unavailable [phone] Theresa Camargo MD Primary Care Provider Nelson Ross MD Unavailable [phone] Laz Valencia MD Unavailable Russell Moran MD Unavailable Yuliya Ibarra MD Unavailable [phone] Phuong Callejas DPM Unavailable [phone] Sy Barrientos MD Unavailable Russell Moran MD Unavailable Rico Gasca MD Unavailable Elle Landaverde MD Unavailable Kirk Truong MD Unavailable Shira Love DO Unavailable [phone] Brooke Haynes APRN-SARA Unavailable [phone] Reason for Referral * Radiology Services (Emergency) - Closed Specialty Diagnoses / Procedures Referred By Mabelac t Referred To Contact Vascular Lab Diagnoses Edema of left lower extremity Procedures VAS LEFT VENOUS DUPLEX LE VAS LEFT VENOUS DUPLEX LE Asha Narvaez, YAEL-SLAT BASKET MAKER MACHINE [address] [place] [address] [facility] Op Vascular Lab [address] [facility] [place] [address] Referral ID Status Reason Start Date Expiration Date Visits Re quested Visits Authorized [id number] Closed 10/18/2019 04/15/2020 1 1 Reason for Visit * Radiology Services (Emergency) - Closed Specialty Diagnoses / Procedures Referred By Alejandrina t Referred To Contact Vascular Lab Diagnoses Edema of left lower extremity Procedures VAS LEFT VENOUS DUPLEX LE VAS LEFT VENOUS DUPLEX LE Asha Narvaez, CLINICAL REHABILITATION LIAISON-SLAT BASKET MAKER MACHINE [address] [place] [address] [facility] Op Vascular Lab [address] [facility], [address] [place] [address] Referral ID Status Reason Start Date Expiration Date Visits Re quested Visits Authorized [id number] Closed 10/18/2019 04/15/2020 1 1 Encounter Details Date Type Department Care Team (Latest Contact Info) Description 10/18/2019 4:15 PM CDT - 10/18/2019 11:59 PM CDT Hospital Encounter [facility] Health Vascular Services [address] [facility], [address] [place] [address] Noah Fernán[place] [address] [facility] [address] [place] [address] Discharge Disposition: Home or Self Care Social [...] have Coronavirus / COVID-19? No / Unsure 10/18/2019 4:05 PM CDT documented as of this encounter [...] Sig Dispensed Refills Start Date End Date multivitamin with iron (ONE A DAY WITH [...] mouth once daily 06/18/2018 03/30/2020 nystatin (MYCOSTATIN) 787145 UNIT/GM powder Apply to affected area 2 times daily 60 g 04/12/2019 09/14/2020 polyethyl glycol-propyl glycol (SYSTANE) 0.4-0.3 % ophth solution Instill 1 drop into both eyes once as needed 09/14/2020 polyethylene glycol 3350 (MIRALAX) packet Take 17 g by mouth once daily 08/09/2020 potassium chloride ER (KLOR-CON) 20 MEQ tablet Take 1 tablet by mouth 4 times daily 120 tablet 3 09/20/2019 01/17/2020 rosuvastatin (CRESTOR) 10 MG tablet TAKE 1 TABLET AT BEDTIME 90 tablet 10/06/2019 01/31/2020 sulfamethoxazole-trime thoprim (BACTRIM DS) 800-160 MG tabletIndications:Cell ulitis of left lower extremity Take 1 tablet by mouth 2 times daily for 10 days 20 tablet 10/18/2019 10/28/2019 verapamil SR 24hr (VERELAN) 240 MG capsule Take 240 mg by mouth once daily 11/23/2019 Water For Irrigation, Sterile 60 mL by Irrigation route once daily as needed (catheter not draining) 500 mL 3 07/21/2019 09/14/2020 documented as of this encounter Plan of Treatment Not on file documented as of this encounter Goals Goal Patient Goal Type Associated Problems Recent Progress Patient-Stated? 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 8:09 AM GENERAL DENTIST) No Alisa Jaramillo HEMOGLOBIN A1C < 7.0 Result Component 5.4( 12:00 AM CDT) No Alisa Jaramillo documented as of this encounter Procedures Procedure Name Priority Date/Time Associated Diagnosis Comments VAS LEFT VENOUS DUPLEX LE STAT 10/18/2019 4:29 PM CDT Edema of left lower extremity documented in this encounter Results * VAS LEFT VENOUS DUPLEX LE (10/18/2019 4:29 PM CDT) Anatomical Region Laterality Modality Lower Extremity, Upper Extremity Ultrasound 10/18/2019 4:11 PM CDT Narrative Procedure Note Noah Fernández MD - 10/18/2019 [facility] Health Vascular [place] [address], [address] [place] [address] Lower Extremity Venous Ultrasound Report Pat.Name: LOC ANDERSON Pat.ID: [id number] .Date: 10/18/2019 Refer.MD: Unknown, Provider Exam Time: 4:11:00 PM Study Type:LE Venous Age: 7 1940,78Y Sex: FEMALE Sonogrphr: Thiago SutherlandCHIO Pat. Stat.:Outpatient ICD - 9: I82.492 Acute embolism and thrombosis of other specified deep vein of left lower extremity CPT - 4: 92792 Procedures: Lower Extremity Venous - Left Race: 1 Visit ID: [id number] ++++++++++++++++++++++++++++++++++++ SUMMARY: ++++++++++++++++++++++++++++++++++++ There is no evidence [...] lower extremity. Appropriate augmentation with distal compression. No evidence of reflux with proximal compression. Signed 10/18/2019 04:50 PM Noah Fernández MD Asha Narvaez APRN-SLAT BASKET MAKER MACHINE VASCULAR LAB ORD ERABLES documented in this encounter Visit Diagnoses Diagnosis Edema of left lower extremity Edema documented in this encounter Care Teams Grants Administrator Relationship Specialty [place] [address] [address] PCP - General Internal Medicine 03/31/18 05/30/22 Brooke Haynes APRN-SARA [address] [facility] [address] [place] [address] PCP - Attributed-MSSP 10/18/19 11/16/19 Etienne Florez MD Orthopedic Surgery 12/09/14 [place] [address] [facility] [address] [place] [address] Oncology 09/15/17 [place] [address] [facility] [address] [place] [address] Neurology 06/26/18 [place] [address] [facility] [address] [place] [address] Cardiovascular Disease 06/26/18 [place] [address] [id number] Pulmonary Disease 06/26/18 Yuliya Ibarra MD [address] [facility] [address] [place] [address] Endocrinology 06/26/18 Phuong Callejas DPM [address] [place] [address] Podiatry 06/26/18 Sy Barrientos MD [address] [place] [address] [place] [address] Ophthalmology 06/26/18 [place] [address] [place] [address] [address] [address] Pulmonary Disease 06/26/18 Rico Gasca MD [address] [facility] [address] [place] [address] Urology 06/26/18 Elle Landaverde MD [address] [facility] [address] [place] [address] Vascular Surgery 06/26/18 Kirk Truong MD [address] [facility] [address] [place] [address] Gastroenterology 06/26/18 [place] [address] [place] [address] General Surgery 06/26/18 documented as of this encounter
--- OUTSIDE RECORDS SUMMARY | 2024-05-26 12:38 | XMS_ITS | Encounter Summary ---
Author Organization [facility] Address [address] [facility] [place] [address] Care Team Providers Care Director Pharmaceutical Name Role Phone Etienne Florez MD Unavailable Enrique Gonzalez MD Unavailable [phone] Theresa Camargo MD Primary Care Provider Nelson Ross MD Unavailable Laz Valencia MD Unavailable Russell Moran MD Unavailable Yuliya Ibarra MD Unavailable Phuong Callejas DPM Unavailable Sy Barrientos MD Unavailable Russell Moran MD Unavailable Rico Gasca MD Unavailable Elle Landaverde MD Unavailable [phone] Kirk Truong MD Unavailable Shira Love DO Unavailable [phone] Brooke Haynes APRN-GENERAL LITHOGRAPHIC WORKER Unavailable [phone] Encounter Details Date Type Department Care Team (Latest Contact Info) Description 10/18/2019 Travel Social History Tobacco Use Types Packs/Day [...] < 140/90 Blood Pressure 127/52(2022 8:09 AM GLASS TINTER) No Alisa Jaramillo HEMOGLOBIN A1C < 7.0 Result Component 5.4( 12:00 AM CDT) No Alisa Jaramillo documented as of this encounter Visit Diagnoses Not on filedocumented in this encounter Care Teams Director Pharmaceutical Relationship Specialty Start [place] [address] [address] PCP - General Internal Medicine 03/31/18 05/30/22 Brooke Haynes APRN-GENERAL LITHOGRAPHIC WORKER [address] [facility] [address] [place] [address] PCP - Attributed-MSSP 10/18/19 11/16/19 Etienne Florez MD Orthopedic Surgery 12/09/14 [place] [address] [facility] [address] [facility] [address] [place] [address] Oncology 09/15/17 [place] [address] [facility] [address] [place] [address] Neurology 06/26/18 [place] [address] [facility] [address] [place] [address] Cardiovascular Disease 06/26/18 [place] [address] [id number] Pulmonary Disease 06/26/18 Yuliya Ibarra MD [address] [facility] [address] [place] [address] Endocrinology 06/26/18 Phuong Callejas DPM [address] [place], [place] [address] Podiatry 06/26/18 Sy Barrientos MD [address] [place] [address] [place] [address] Ophthalmology 06/26/18 [place] [address] [address] Pulmonary Disease 06/26/18 Rico Gasca MD [address] [address] Urology 06/26/18 Elle Landaverde MD [address] [address] Vascular Surgery 06/26/18 Kirk Truong MD [address] [address] Gastroenterology 06/26/18 [place] [address] [place] [address] General Surgery 06/26/18 documented as of this encounter
--- OUTSIDE RECORDS SUMMARY | 2024-05-26 12:38 | XMS_ITS | Encounter Summary ---
Author Organization [facility] Address [address] [place] [address] Care Team Providers Care Balancer Scale Name Role Phone Etienne Florez MD Unavailable Enrique Gonzalez MD Unavailable [phone] Theresa Camargo MD Primary Care Provider Nelson Ross MD Unavailable [phone] Laz Valencia MD Unavailable Russell Moran MD Unavailable Yuliya Ibarra MD Unavailable [phone] Phuong Callejas DPM Unavailable [phone] Sy Barrientos MD Unavailable [phone] Russell Mroan MD Unavailable Rico Gasca MD Unavailable [phone] Elle Landaverde MD Unavailable Kirk Truong MD Unavailable [phone] Shira Love DO Unavailable Theresa Camargo MD Unavailable [phone] Reason for Visit * Reason Comments Abnormal Bleeding Encounter Details Date Type Department Care Team (Latest Contact Info) Description 02/11/2020 10:45 AM CDT Office Visit [facility] - BLOCK CABLEMAN [address] [facility] [address] [place] [address] [place] [address] [facility] [address] [place] [address] Postmenopausal bleeding (Primary Dx); Vulvar irritation Social History Tobacco Use Types Packs/Day Years [...] Sign Reading Time Taken Comments Blood Pressure 128/72 02/11/2020 11:10 AM CDT Pulse - - Temperature - - Respiratory Rate - - Oxygen Saturation - - Inhaled Oxygen Concentration - - Weight 81.2 kg (179 lb) 02/11/2020 11:10 AM CDT Height 165.1 cm (5' 5 ) 02/11/2020 11:10 AM CDT Body Mass Index 29.79 02/11/2020 11:10 AM CDT documented in this [...] as of this encounter Progress Notes * Darnell Hodge MD - 02/11/2020 11:30 AM CDT Subjective: Perla Leon is a 79 year [id number], No LMP recorded. Patient is postmenopausal., female who comes in for one episode of painless vaginal bleeding and erythema of vagina noted by home health nurse. Ptwith indwelling catheter. Last week at catheter change pt had blood probably from a scratch on thigh. Nurse noted post vaginal erythema. No further bleeding and no pain Past medical history: Past Medical History: Diagnosis Date ??? [...] IHC), Ki-67 19% S/p 08/25/2017 excisional biopsy ([place]); spastic paraplegia: 1.1 cm grade 2/3 IDC. 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, estrogen receptor positive Mixed hyperlipidemia History of TIA (transient ischemic attack) Osteopenia of multiple sites Iron deficiency anemia due to chronic blood loss Chronic idiopathic constipation Calcification of aorta Primary hypothyroidism Chronic atrial fibrillation Familial spastic paraplegia Heart murmur CATY (obstructive sleep apnea) CAD (coronary artery disease) TIA (transient ischemic attack) Lymphatic edema Partial seizure OAB (overactive bladder) Left ventricular hypertrophy Hyperparathyroidism Recurrent UTI Atrial fibrillation Past surgical history: Past Surgical History: Procedure Laterality Date ??? [...] LT ARM ??? THYROID NEEDLE BIOPSY Medications: Current Outpatient Medications Medication Sig Dispense Refill ??? albuterol HFA (PROAIR HFA) 108 (90 BASE) MCG/ACT inhaler Take 2 Puffs by mouth every 4 hours asneeded. ??? amitriptyline (ELAVIL) 25 MG tablet TAKE 2 TABLETS AT BEDTIME 180 tablet 4 ??? 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 aspirin (ASPIRIN) 81 MG tablet Take 81 mg by mouth once daily ??? calcium carbonate-vitamin D (CALTRATE 600+D) 600-400 MG-UNIT tablet Take 1 tablet by mouth 2 times daily 60 tablet ??? canagliflozin (INVOKANA) 100 MG tablet ??? clopidogrel (PLAVIX) 75 MG tablet TAKE 1 TABLET AT BEDTIME 90 tablet 4 ??? Cranberry-Vitamin C (AZO CRANBERRY URINARY TRACT) 250-60 MG Take 2 tablets by mouth once daily ??? Cyanocobalamin (B-12) 1000 MCG TBCR Take by mouth once daily. ??? dorzolamide (TRUSOPT) 2 % ophthalmic solution Instill 1 drop into both eyes 2 times daily ??? empagliflozin (JARDIANCE) 10 MG tablet Take 1 tablet by mouth once daily (Patient not taking: Reported on 11/23/2019) 90 tablet 0 ??? esomeprazole (NEXIUM) 40 MG capsule TAKE 1 CAPSULE DAILY 90 capsule 4 ??? FLECAINIDE ACETATE PO Take 50 mg by mouth 2 times daily ??? furosemide (LASIX) 40 MG tablet Take 1 Tab by mouth once daily 90 Tab 2 ??? glimepiride (AMARYL) 1 MG tablet Take 1 mg by mouth 3 times daily ??? hydroxypropyl methylcellulose 0.3% (SYSTANE OVERNIGHT THERAPY) 0.3 % ophthalmic gel Instill 1 Drop into both eyes nightly as needed for Dry Eyes ??? latanoprost (XALATAN) 0.005 % ophthalmic solution Instill 1 drop into both eyes at bedtime ??? levothyroxine (SYNTHROID) 25 MCG tablet Take 25 mcg by mouth daily before breakfast ??? menthol-zinc oxide (CALMOSEPTINE) 0.44-20.6 % ointment Apply to affected area as needed for Other ??? metOLazone (ZAROXOLYN) 2.5 MG tablet Take 2.5 mg by mouth every 7 days ??? multivitamin with iron (ONE A DAY WITH IRON) tablet Take 1 Tab by mouth once daily. ??? MYRBETRIQ 50 MG tablet Take 25 mg by mouth once daily ??? nystatin (MYCOSTATIN) 023820 UNIT/GM powder Apply to affected area 2 times daily 60 g 0 ??? nystatin-triamcinolone (MYCOLOG) 489153-5.1 UNIT/GM-% cream Apply to affected area 2 [...] by mouth at bedtime 90 tablet 1 ??? sitaGLIPtin (JANUVIA) 50 MG tablet Take 100 mg by mouth once daily ??? spironolactone (ALDACTONE) 25 MG tablet Take 25 mg by mouth once daily ??? verapamil SR 24hr (VERELAN) 120 MG capsule TAKE 1 CAPSULE (120 MG TOTAL) BY MOUTH NIGHTLY ??? Water For Irrigation, Sterile 60 mL by Irrigation route once daily as needed (catheter not draining) 500 mL 3 No current facility-administered medications for this visit. Allergies: Allergies Allergen Reactions ??? Advair Diskus YEAS INFECTION ??? Aricept [Donepezil] Other I dont remember ??? Diltiazem Swelling ??? Metformin Diarrhea ??? Black Pepper [[place]] Unknown ??? Fluticasone Diarrhea ??? Salmeterol Diarrhea ??? Sotalol Other Hair loss Family history: Family History Problem Relation Name Age of Onset ??? Cancer - Breast Mother ??? CAD (Coronary Artery Disease) Father CHF ??? CAD (Coronary Artery Disease) Brother CHF Social history: Social History Socioeconomic History ??? Marital status: Spouse name: Not on file ??? Number of children: 3 ??? Years of education: Not on file ??? Highest education level: Not on file Occupational History ??? 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 Financial resource [...] file Gets together: Not on file Attends catholic service: Not on file Active member of [...] Social History Narrative ??? Not on file Ob history: OB History 3 Para Term AB Living SAB TAB Ectopic Multiple Live Births PFSH: I have reviewed family history, past medical and surgical history, and relevant social history. Review of Systems: Pertinent items are noted in HPI PHYSICAL EXAM BP 128/72 Ht 5' 5 Wt 179 lb BMI 29.79 kg/m2 General appearance: alert, cooperative, no distress Neck without tm Lungs def Heart def Abdominal exam: soft without mass, non-tender, with normal bowel sounds Lymph Nodes: no inguinal nodes palpable Pelvic: atrophic with catheter in urethra. Erythema at post vagina where catheter is sitting on post vagina. No l esions. Healed scratch on left thigh/groin may have been source of blood Discharge: normal and physiologic ASSESSMENT ICD-10-CM 1. Postmenopausal bleeding N95.0 2. Vulvar irritation N90.89 PLAN mycolog bid to affected area documented in this encounter Plan of Treatment Not on file documented as of this encounter Goals Goal Patient Goal Type Associated Problems Recent Progress Patient-Stated? 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 8:09 AM PLATFORM POWER TECHNICIAN) No Alisa Jaramillo HEMOGLOBIN A1C < 7.0 Result Component 5.4( 12:00 AM CDT) No Alisa Jaramillo documented as of this encounter Visit Diagnoses Diagnosis Postmenopausal bleeding- Primary Vulvar irritation Other specified noninflammatory disorder of vulva and perineum documented in this encounter Care Teams Balancer Scale Relationship Specialty Start [place] [address] [address] PCP - General Internal Medicine 03/31/18 05/30/22 [place] [address] [facility] [address] [place] [address] PCP - Attributed-MSSP 11/17/19 02/16/20 Etienne Florez MD Orthopedic Surgery 12/09/14 [place] [address] [facility] [address] [place] [address] Oncology 09/15/17 [place] [address] [facility] [address] [place] [address] Neurology 06/26/18 [place] [address] [facility] [address] [place] [address] Cardiovascular Disease 06/26/18 [place] [address] [id number] Pulmonary Disease 06/26/18 Yuliya Ibarra MD [address] [facility] [address] [place] [address] Endocrinology 06/26/18 Phuong Callejas DPM [address] [place], [place] [address] Podiatry 06/26/18 Sy Barrientos MD [address] [place] [address] Ophthalmology 06/26/18 [place] [address] [address] Pulmonary Disease 06/26/18 Rico Gasca MD [address] [facility] [address] [place] [address] Urology 06/26/18 Elle Landaverde MD [address] [facility] [address] [place] [address] Vascular Surgery 06/26/18 Kirk Truong MD [address] [facility] [address] [place] [address] Gastroenterology 06/26/18 [place] [address] [address] [facility] [address] [place] [address] General Surgery 06/26/18 documented as of this encounter
--- OUTSIDE RECORDS SUMMARY | 2024-05-26 12:38 | XMS_ITS | Encounter Summary ---
Author Organization [facility] Address [address] [place] [address] Care Team Providers Care Conveyor Belt Installer Name Role Phone Etienne Florez MD Unavailable [phone] Enrique Gonzalez MD Unavailable [phone] Theresa Camargo MD Primary Care Provider [phone] Nelson Ross MD Unavailable [phone] Laz Valencia MD Unavailable Russell Moran MD Unavailable Yuliya Ibarra MD Unavailable Phuong Callejas DPM Unavailable Sy Barrientos MD Unavailable Russell Moran MD Unavailable [phone] Rico Gasca MD Unavailable [phone] Elle Landaverde MD Unavailable Kirk Truong MD Unavailable [phone] Shira Love Unavailable [phone] Theresa Camargo MD Unavailable [phone] Encounter Details Date Type Department Care Team (Latest Contact Info) Description 11/26/2019 8:12 AM CDT - 11/26/2019 9:23 AM CDT Hospital Encounter [facility] [address] [place] [address] [place] [address] [facility] [address] [place] [address] Discharge Disposition: Home or Self [...] or suspected to have Coronavirus / COVID-19? Unable to assess 11/23/2019 10:13 AM CDT documented as of this encounter [...] mouth once daily 06/18/2018 03/30/2020 nystatin (MYCOSTATIN) 923147 UNIT/GM powder Apply to affected area 2 [...] TABLET AT BEDTIME 90 tablet 10/06/2019 01/31/2020 verapamil SR 24hr (VERELAN) 120 MG capsule [...] 140/90 Blood Pressure 127/52(2022 8:09 AM PIN GAME MACHINE INSPECTOR) No Alisa Jaramillo HEMOGLOBIN A1C < 7.0 Result Component 5.4( 12:00 AM CDT) No Alisa Jaramillo documented as of this encounter Visit Diagnoses Not on filedocumented in this encounter Care Teams Conveyor Belt Installer Relationship Specialty [place] [address] [place] [address] PCP - General Internal Medicine 03/31/18 05/30/22 [place] [address] [place] [address] PCP - Attributed-MSSP 11/17/19 02/16/20 tEienne Florez MD Orthopedic Surgery 12/09/14 [place] [address] [place] [address] Oncology 09/15/17 [place] [address] [place] [address] Neurology 06/26/18 [place] [address] [facility] [address] [place] [address] Cardiovascular Disease 06/26/18 [place] [address] [address] Pulmonary Disease 06/26/18 Yuliya Ibarra MD [address] [facility] [address] [place] [address] Endocrinology 06/26/18 Phuong Callejas DPM [address] [place] [address] Podiatry 06/26/18 Sy Barrientos MD [address] [place] [address] [place] [address] Ophthalmology 06/26/18 [place] [address] [address] Pulmonary Disease 06/26/18 Rico Gasca MD [address] [address] Urology 06/26/18 Elle Landaverde MD [address] [address] Vascular Surgery 06/26/18 Kirk Truong MD [address] [address] Gastroenterology 06/26/18 [place] [address] [address] [facility] [address] [place] [address] General Surgery 06/26/18 documented as of this encounter
--- OUTSIDE RECORDS SUMMARY | 2024-05-26 12:38 | XMS_ITS | Encounter Summary ---
Author Organization [facility] Address [address] [place] [address] Care Team Providers Care Defensive Driving Instructor Name Role Phone Etienne Florez MD Unavailable Enrique Gonzalez MD Unavailable [phone] Theresa Camargo MD Primary Care Provider Nelson Ross MD Unavailable [phone] Laz Valencia MD Unavailable Russell Moran MD Unavailable [phone] Yuliya Ibarra MD Unavailable Phuong Callejas DPM Unavailable Sy Barrientos MD Unavailable [phone] Russell Moran MD Unavailable [phone] Rico Gasca MD Unavailable Elle Landaverde MD Unavailable Kirk Truong MD Unavailable [phone] Shira Love DO Unavailable [phone] Brooke Haynes TAPING MACHINE OPERATOR-MONOGRAM TECHNICIAN Unavailable Reason for Visit * Reason Comments Follow-up 1 week Encounter Details Date Type Department Care Team (Travon st Contact Info) Description 10/27/2019 10:00 AM CDT Office Visit [facility] [address] [facility] [address] [place] [address] Asha Narvaez TAPING MACHINE OPERATOR-MONOGRAM TECHNICIAN [address] [facility] [address] [place] [address] Need for zoster vaccine (Primary Dx) Social History Tobacco Use Types [...] Sign Reading Time Taken Comments Blood Pressure 142/76 10/27/2019 10:36 AM CDT Pulse 92 10/27/2019 10:36 AM CDT Temperature 36.3 ??C (97.3 ??F) 10/27/2019 10:36 AM C DT Respiratory Rate 16 10/27/2019 10:36 AM CDT Oxygen Saturation 94% 10/27/2019 10:36 AM CDT Inhaled Oxygen Concentration - - Weight 82.6 kg (182 lb) 10/27/2019 10:36 AM CDT Height 165.1 cm (5' 5 ) 10/27/2019 10:36 AM CDT Body Mass Index 30.29 10/27/2019 10:36 AM CDT documented in this encounter Functional Status Functional Status Response Date of Assess ment Is person deaf or have serious hearing difficult y? No 12/28/2016 Is person blind or have serious difficulty seepatricia g? No 12/28/2016 Does person have serious dif ficulty walking/climbing stairs? Yes 12/28/2016 Does person have difficulty dressing/bathing? No 12/28/2016 Does person have difficulty doing errands alone? Yes 12/28/2016 Cognitive Status Response Date of Assessm ent Does person have difficulty concentrating/remembering/making decisions? No 12/28/2016 documented as of this encounter Progress Notes * BriceAsha, TAPING MACHINE OPERATOR-MONOGRAM TECHNICIAN - 10/27/2019 12:15 PM CDT Perla Leon is a 78 year old female here for: Chief Complaint Patient presents with ??? Follow-up 1 week SUBJECTIVE: Patient presents wither her daughter for 1 week follow up of cellulitis of the left LE. She was started on Bactrim DS. Doppler of the LLE was negative. Kidney fx was good on labs. She has since seen her leaflet or newspaper deliverer who is prescribing 3 diuretics. She reports that she is taking them all. She has not been wearing her support stockings and using her lymphedema machine as she should. The inflammation in the foot has improved. The swelling worsens as the day goes on and decreases when she lays down. Past Medical History: Diagnosis Date ??? Asthma [...] mellitus without complication 01/07/2011 Current Outpatient Medications on File Prior to [...] TBCR Take by mouth once daily. ??? empagliflozin (JARDIANCE) 10 MG tablet Take 1 tablet by mouth once daily 90 tablet 0 ??? esomeprazole (NEXIUM) 40 [...] by mouth once daily ??? nystatin (MYCOSTATIN) 083948 UNIT/GM powder Apply to affected area 2 times daily 60 g 0 ??? polyethyl glycol-propyl glycol (SYSTANE) 0.4-0.3 % ophth solution Instill 1 drop into both eyesonce as needed ??? polyethylene glycol 3350 (MIRALAX) packet Take 17 g by mouth once daily ??? potassium chloride ER (KLOR-CON) 20 MEQ tablet Take 1 tablet by mouth 4 times daily 120 tablet 3 ??? PROLENSA 0.07 % opthalmic solution PUT 1 DROP INTO RIGHT EYE TWICE A DAY 2 ??? rosuvastatin (CRESTOR) 10 MG tablet TAKE 1 TABLET AT BEDTIME 90 tablet 0 ??? sitaGLIPtin (JANUVIA) 50 MG tablet Take 100 mg by mouth once daily ??? spironolactone (ALDACTONE) 25 MG tablet Take 25 mg by mouth once daily ??? sulfamethoxazole-trimethoprim (BACTRIM DS) 800-160 MG tablet Take 1 tablet by mouth 2 times daily for 10 days (Patient not taking: Reported on 10/27/2019) 20 tablet 0 ??? verapamil SR 24hr (VERELAN) 240 MG capsule Take 240 mg by mouth once daily ??? Water For Irrigation, Sterile 60 mL by Irrigation route once daily as needed (catheter not draining) 500 mL 3 No current facility-administered medications on file prior to visit. Past Surgical History: Procedure Laterality Date ??? [...] LEG, RT CHEEK ??? 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 [...] Not on file Occupational History ??? 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 Financial resource [...] file Gets together: Not on file Attends denominational service: Not on file Active member of club or organization: Not on file Attends meetings of clubs or organizations: Not on file Relationship status: Not on file ??? Intimate partner violence Fear of current or ex partner: Not on file Emotionally abused: Not on file Physically abused: Not on file Forced sexual activity: Not on file Other Topics Concern ??? Service Not Asked ??? Blood Transfusions No ??? Caffeine Concern [...] Disease) Brother CHF Current Outpatient Medications Medication Sig Dispense Refill [...] TBCR Take by mouth once daily. ??? empagliflozin (JARDIANCE) 10 MG tablet Take 1 tablet by mouth once daily 90 tablet 0 ??? esomeprazole (NEXIUM) 40 [...] by mouth once daily ??? nystatin (MYCOSTATIN) 932109 UNIT/GM powder Apply to affected area 2 times daily 60 g 0 ??? polyethyl glycol-propyl glycol (SYSTANE) 0.4-0.3 % ophth solution Instill 1 drop into both eyesonce as needed ??? polyethylene glycol 3350 (MIRALAX) packet Take 17 g by mouth once daily ??? potassium chloride ER (KLOR-CON) 20 MEQ tablet Take 1 tablet by mouth 4 times daily 120 tablet 3 ??? PROLENSA 0.07 % opthalmic solution PUT 1 DROP INTO RIGHT EYE TWICE A DAY 2 ??? rosuvastatin (CRESTOR) 10 MG tablet TAKE 1 TABLET AT BEDTIME 90 tablet 0 ??? sitaGLIPtin (JANUVIA) 50 MG tablet Take 100 mg by mouth once daily ??? spironolactone (ALDACTONE) 25 MG tablet Take 25 mg by mouth once daily ??? sulfamethoxazole-trimethoprim (BACTRIM DS) 800-160 MG tablet Take 1 tablet by mouth 2 times daily for 10 days (Patient not taking: Reported on 10/27/2019) 20 tablet 0 ??? verapamil SR 24hr (VERELAN) 240 MG capsule Take 240 mg by mouth once daily ??? Water For Irrigation, Sterile 60 mL by Irrigation route once daily as needed (catheter not draining) 500 mL 3 No current facility-administered medications for this visit. Allergies Allergen Reactions ??? Advair Diskus YEAS INFECTION ??? Aricept [Donepezil] Other I dont remember ??? Diltiazem Swelling ??? Metformin Diarrhea ??? Fluticasone Diarrhea ??? Piper Longum ??? Salmeterol Diarrhea ??? Sotalol Other Hair loss REVIEW OF SYSTEMS: ROS See HPI above for pertinent negatives and positives. OBJECTIVE: General appearance: alert, well appearing, and in no distress. BP 142/76 Pulse 92 Temp 97.3 ??F (36.3 ??C) Resp 16 Ht 1.651 m (5' 5 ) Wt 82.6 kg (182 lb) SpO2 94%BMI 30.29 kg/m2 Body mass index is 30.29 kg/m??. Physical Exam Vitals reviewed. General appearance - alert, well appearing, and in no distress Psych - alert and oriented to person, place, and time, normal affect Lungs - unlabored, clear to auscultation, no wheezes, rales or rhonchi, symmetric air entry, good anterior forced expiration without coarseness nor wheezing. Heart - normal rate, regular rhythm, normal S1, S2, no murmurs, rubs, clicks or gallops, 2+ edema left foot generalized edema to bilateral legs, peripheral pulses normal, no carotid bruits. Extremities - Pt in wheelchair, full range of motion, no clubbing nor cyanosis. Mild erythema to left foot. Skin - warm, dry, no rashes in visible areas. ASSESSMENT: Encounter Diagnosis Name Primary? Need for zoster vaccine Yes PLAN: Left leg has improved. Swelling remains. Patient to take remaining dose of abx. Try to remember to wear support hose and use machine to promote circulation and movement of fluid in legs. Further recommendations pending the above results and patient's clinical course. Follow-up visit 1 month with PCP. The patient indicates understanding of these issues and agrees with the plan. documented in this encounter Plan of Treatment Not on file documented as of this encounter Goals Goal Patient Goal Type Associated Problems Recent Progress Patient-Stated? 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 8:09 AM OCCUPATIONAL ANALYST) No Alisa Jaramillo HEMOGLOBIN A1C < 7.0 Result Component 5.4( 12:00 AM CDT) No Alisa Jaramillo documented as of this encounter Visit Diagnoses Diagnosis Need for zoster vaccine- Primary Need for prophylactic vaccination and inoculation against varicella documented in this encounter Care Teams Defensive Driving Instructor Relationship Specialty Start [place] [address] [facility] [address] [place] [address] PCP - General Internal Medicine 03/31/18 05/30/22 Brooke Haynes APRN-CNP [address] [facility] [address] [place] [address] PCP - Attributed-MSSP 10/18/19 11/16/19 Etienne Florez MD Orthopedic Surgery 12/09/14 [place] [address] [facility] [address] [place] [address] Oncology 09/15/17 [place] [address] [facility] [address] [place] [address] Neurology 06/26/18 [place] [address] [facility] [address] [place] [address] Cardiovascular Disease 06/26/18 Russell Moran MD [address] [place] [address] Pulmonary Disease 06/26/18 Yuliya Ibarra MD [address] [facility] [address] [place] [address] Endocrinology 06/26/18 Phuong Callejas DPM [address] [place] [address] Podiatry 06/26/18 Sy Barrientos MD [address] [place] [address] [place] [address] Ophthalmology 06/26/18 [place] [address] [address] [place] [address] Pulmonary Disease 06/26/18 Rico Gasca MD [address] [facility] [address] [place] [address] Urology 06/26/18 Elle Landaverde MD [address] [facility] [address] [place] [address] Vascular Surgery 06/26/18 Kirk Truong MD [address] [facility] [address] [place] [address] Gastroenterology 06/26/18 [place] [address] [place] [address] General Surgery 06/26/18 documented as of this encounter
--- OUTSIDE RECORDS SUMMARY | 2024-05-26 12:38 | XMS_ITS | Encounter Summary ---
Author Organization [facility] Address [address] [place] [address] Care Team Providers Care It Security Manager Name Role Phone Etienne Florez MD Unavailable Enrique Gonzalez MD Unavailable [phone] Theresa Camargo MD Primary Care Provider Nelson Ross MD Unavailable [phone] Laz Valencia MD Unavailable Russell Moran MD Unavailable Yuliya Ibarra MD Unavailable [phone] Phuong Callejas DPM Unavailable Sy Barrientos MD Unavailable [phone] Russell Moran MD Unavailable Rico Gasca MD Unavailable Elle Landaverde MD Unavailable Kirk Truong MD Unavailable [phone] Kate Shira Jason BRADFORD Unavailable [phone] Theresa Camargo MD Unavailable [phone] Reason for Referral * Consultation (Routine) - Closed Specialty Diagnoses / Procedures Referred By Contandrea t Referred To Contact Diagnoses HSP (hereditary spastic paraplegia) (HCC) [place] [address] [address] [address] Referral ID Status Reason Start Date Expiration Date V isits Requested Visits Authorized [id number] Closed Specialty Services Required 12/09/2019 12/08/2020 1 1 Reason for Visit * Reason Comments Follow-up Encounter Details Date Type Department Care Team (Late st Contact Info) Description 12/09/2019 10:40 AM CDT Office Visit [facility] [address] [address] Nelson Ross MD [address] [place] [address] HSP (hereditary spastic paraplegia) ([facility]) (Primary Dx); Hypercalcemia; Memory loss Social History Tobacco Use Types [...] have Coronavirus / COVID-19? No / Unsure 12/08/2019 10:06 AM CDT documented as of this encounter Last Filed Vital Signs Vital Sign Reading Time Taken Comments Blood Pressure 106/60 12/09/2019 11:17 AM CDT Pulse 80 12/09/2019 11:17 AM CDT Temperature - - Respiratory Rate 14 12/09/2019 11:17 AM CDT Oxygen Saturation 95% 12/09/2019 11:17 AM CDT Inhaled Oxygen Concentration - - Weight 81.6 kg (180 lb) 12/09/2019 11:17 AM CDT Height 165.1 cm (5' 5 ) 12/09/2019 11:17 AM CDT Body Mass Index 29.95 12/09/2019 11:17 AM CDT documented in this encounter Functional [...] Instructions * Patient Instructions* Eva Sinha - 12/09/2019 11:59 AM CDT Call physician if symptoms worsen or with any questions. Take Medications as prescribed. For descriptions of a variety of neurological conditions please visit: [email or web address] documented in this encounter Progress Notes * Nelson Ross MD - 12/09/2019 11:40 AM CDT CC: HSP IH: Further progression. Walks minimally and has indwelling olivas. Has trouble getting legs into car. Still lives at home. Less active overall with the catheter in. DM is OK, Calcium recently high and PTH increased. No symptoms of hypercalcemia. Still on Elavil. No stroke symptoms. No muscle crampsor pain. [place]. Back pain is intermittent. Memory is also worse. Not using CPAP adequately Outpatient Medications Marked as Taking for the 12/09/19 encounter (Office Visit) with Nelson Ross MD [...] by mouth once daily. ??? nystatin (MYCOSTATIN) 064558 UNIT/GM powder Apply to affected area 2 [...] and urgency. Now catheterized Musculoskeletal: Positive for back pain and falls. Neurological: Positive for dizziness. Exam: BP 106/60 Pulse 80 Resp 14 Ht 1.651 m (5' 5 ) Wt 81.6 kg (180 lb) SpO2 95% BMI 29.95 kg/m2 Alert EOMS OK Language OK Non ambulatory Reflexes brisk Sensory decreased No drift No tremor Hips 2/2 Quads strong Minimal edema Recent Labs Component Name 11/26/19 0945 11/26/19 0855 03/05/19 1300 11/06/18 1043 SODIUM 139 139 141 - 144 POTASSIUM 3.7 4.0 3.1* - 3.6 CHLORIDE 100 99 102 - 105 CO2 29 30 28 - 30 BUN 26* 27* 14 - 18 CREATININE 1.00 1.03 0.81 - 0.66 GLUCOSE 142* 149* 195* - 82 CALCIUM 11.3* 11.6* 10.4* - 10.5* ALT 22 - 20 - 16 ALKPHOS 93 - 95 - 75 AST 17 - 17 - 15 TBIL 0.3 - 0.3 - 0.2 TPROT 7.0 - 6.2* - 6.1* EGFR 53 52 >60 - >60 EGFRAFR >60 >60 >60 - >60 ALBUMIN 4.0 - 3.9 - 3.9 - = values in this interval not displayed. Recent Labs Component Name 03/05/19 1301 11/06/18 1043 12/09/17 1545 06/12/17 0823 12/29/16 0121 12/28/16 1814 WBC [...] values in this interval not displayed. ASSESSMENT: HSP Memory loss Increased Ca++ Hx of stroke Lumbar degenerative disc disease PLAN: Same meds Keep active Calcium per PMD 6 month OV Home PT Over 25 minutes were spent with the patient face to face. Over fifty percent of this time was spentcounseling and coordination of care. All questions were answered to the patients satisfaction. Discuss diagnosis and symptoms mgmt. Discuss prognosis documented in this encounter Plan of Treatment Scheduled Referrals Name Type Priority Associated Diagnoses Orde r Schedule AMB REFERRAL TO HOME HEALTH CARE Outpatient Referral Routine HSP (hereditary spastic paraplegia) (HCC) Ordered: 12/09/2019 documented as of this encounter Goals Goal Patient Goal Type Associated Problems Recent Progress Patient-Stated? 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 Hypercalcemia Memory loss documented in this encounter Care Teams It Security Manager Relationship Specialty Start [place] [address] [place] [address] PCP - General Internal Medicine 03/31/18 05/30/22 [place] [address] [facility] [address] [place] [address] PCP - Attributed-MSSP 11/17/19 02/16/20 Etienne Florez MD Orthopedic Surgery 12/09/14 [place] [address] [address] [place] [address] Oncology 09/15/17 [place] [address] [facility] [address] [place] [address] Neurology 06/26/18 [place] [address] [facility] [address] [place] [address] Cardiovascular Disease 06/26/18 [place] [address] [address] Pulmonary Disease 06/26/18 Yuliya Ibarra MD [address] [place] [address] Endocrinology 06/26/18 Phuong Callejas DPM [address] [place], [place] [address] Podiatry 06/26/18 Sy Barrientos MD [address] [place] [address] [place] [address] Ophthalmology 06/26/18 [place] [address] [address] Pulmonary Disease 06/26/18 Rico Gasca MD [address] [place] [address] Urology 06/26/18 Elle Landaverde MD [address] [facility] [address] [place] [address] Vascular Surgery 06/26/18 Kirk Truong MD [address] [place] [address] Gastroenterology 06/26/18 [place] [address] [place] [address] [place] [phone] General Surgery 06/26/18 documented as of this encounter
--- OUTSIDE RECORDS SUMMARY | 2024-05-26 12:38 | XMS_ITS | Encounter Summary ---
Author Organization [facility] Address [address] [place] [address] Care Team Providers Care Belt Conveyor Drier Name Role Phone Etienne Florez MD Unavailable Enrique Gonzalez MD Unavailable [phone] Theresa Camargo MD Primary Care Provider Nelson Ross MD Unavailable Laz Valencia MD Unavailable Russell Moran MD Unavailable Yuliya Ibarra MD Unavailable [phone] Phuong Callejas DPM Unavailable Sy Barrientos MD Unavailable [phone] Russell Moran MD Unavailable Rico Gasca MD Unavailable Elle Landaverde MD Unavailable Kirk Truong MD Unavailable Shira Love DO Unavailable [phone] Theresa Camargo MD Unavailable [phone] Reason for Visit * Reason Comments Refill Request Encounter Details Date Type Department Care Team (Late st Contact Info) Description 09/09/2019 Refill [facility] [address] [facility] [address] [place] [address] [place] [address] [facility] [address] [place] [address] Refill Request Social History Tobacco [...] have Coronavirus / COVID-19? No / Unsure 09/02/2019 10:26 AM CDT documented as of this encounter [...] encounter Miscellaneous Notes * Telephone Encounter - Dayanara Singh - 09/10/2019 2:26 PM CDT Perla Leon Requested Prescriptions Pending Prescriptions Disp Refills ??? potassium chloride ER (KLOR-CON) 10 MEQ tablet [Pharmacy Med Name: POT CHLOR ER (WAX) TABS 10MEQ] 360 tablet 3 Sig: TAKE 4 TABLETS WITH BREAKFAST Allergies Allergen Reactions ??? Advair Diskus YEAS INFECTION ??? Aricept [Donepezil] Other I dont remember ??? Diltiazem Swelling ??? Metformin Diarrhea ??? Fluticasone Diarrhea ??? Piper Longum ??? Salmeterol Diarrhea ??? Sotalol Other Hair loss Last refill- 08/27/2019 Last OV-04/13/2019 Future OV-11/23/2019 documented in this encounter Plan of Treatment Not on file documented as of this encounter Goals Goal Patient Goal Type Associated Problems Recent Progress Patient-Stated? 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 8:09 AM FUND ACCOUNTING MANAGER) No Alisa Jaramillo HEMOGLOBIN A1C < 7.0 Result Component 5.4( 12:00 AM CDT) No Alisa Jaramillo documented as of this encounter Visit Diagnoses Not on filedocumented in this encounter Care Teams Belt Conveyor Drier Relationship Specialty [place] [address] [place] [address] PCP - General Internal Medicine 03/31/18 05/30/22 [place] [address] [place] [address] PCP - Attributed-MSSP 07/18/19 10/17/19 Etienne Florez MD Orthopedic Surgery 12/09/14 [place] [address] [place] [address] Oncology 09/15/17 [place] [address] [place] [address] Neurology 06/26/18 [place] [address] [facility] [address] [place] [address] Cardiovascular Disease 06/26/18 [place] [address] [facility] [address] [place] [address] Pulmonary Disease 06/26/18 Yuliya Ibarra MD [address] [facility] [address] [place] [address] Endocrinology 06/26/18 Phuong Callejas DPM [address] [place] [address] Podiatry 06/26/18 Sy Barrientos MD [address] [place] [address] [place] [address] Ophthalmology 06/26/18 [place] [address] [place] [address] Pulmonary Disease 06/26/18 Rico Gasca MD [address] [place] [address] Urology 06/26/18 Elle Landaverde MD [address] [place] [address] Vascular Surgery 06/26/18 Kirk Truong MD [address] [facility] [address] [place] [address] Gastroenterology 06/26/18 [place] [address] [place] [address] General Surgery 06/26/18 documented as of this encounter
--- OUTSIDE RECORDS SUMMARY | 2024-05-26 12:38 | XMS_ITS | Encounter Summary ---
Author Organization [facility] Address [address] [address] [place] [address] Care Team Providers Care Carbon Furnace Operator Helper Name Role Phone Etienne Florez MD Unavailable [phone] Enrique Gonzalez MD Unavailable [phone] Theresa Camargo MD Primary Care Provider [phone] Nelson Ross MD Unavailable Laz Valencia MD Unavailable Russell Moran MD Unavailable Yuliya Ibarra MD Unavailable Phuong Callejas DPM Unavailable Sy Barrientos MD Unavailable Russell Moran MD Unavailable Rico Gasca MD Unavailable Elle Landaverde MD Unavailable Kirk Truong MD Unavailable Shira Love DO Unavailable Theresa Camargo MD Unavailable [phone] Reason for Visit * Reason Onset Date Comments Update 02/08/2020 Encounter Details Date Type Department Care Team (Late st Contact Info) Description 02/08/2020 Telephone [facility] - Family Medicine [address] [place], [place] [id number] [place] [address] [facility] [address] [place] [address] Update Social History Tobacco Use Types [...] * Telephone Encounter - Milton Naidu - 02/08/2020 2:31 PM CDT Called and informed Je and the pt. Both expressed understanding. 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 She can call so they can get her worked in this week. * Telephone Encounter - Felix Naidushamamolly - 02/08/2020 1:11 PM CDT Je with [facility] called stating that the pt had her catheter changed today. During this pt complained of blood coming form her vagina. Je took a look and he states that the pt's vagina looked macerated. Pt denied having any sexual intercourse or having any trauma to it. Je states the vagina membrane looked irritated. Pt doesn't currently have a OBGYN due to her moving out of town. documented in this encounter Plan of Treatment Not on file documented as of this encounter Goals Goal Patient Goal Type Associated Problems Recent Progress Patient-Stated? 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 8:09 AM TEXTURE ARTIST) No Alisa Jaramillo HEMOGLOBIN A1C < 7.0 Result Component 5.4( 12:00 AM CDT) No Alisa Jaramillo documented as of this encounter Visit Diagnoses Diagnosis Vaginal bleeding- Primary Other specified noninflammatory disorder of vagina documented in this encounter Care Teams Carbon Furnace Operator Helper Relationship Specialty [place] [address] [facility] [address] [place] [address] PCP - General Internal Medicine 03/31/18 05/30/22 [place] [address] [place] [address] PCP - Attributed-MSSP 11/17/19 02/16/20 Etienne Florez MD Orthopedic Surgery 12/09/14 [place] [address] [address] [place] [address] Oncology 09/15/17 [place] [address] [facility] [address] [place] [address] Neurology 06/26/18 [place] [address] [facility] [address] [place] [address] Cardiovascular Disease 06/26/18 [place] [address] [id number] Pulmonary Disease 06/26/18 Yuliya Ibarra MD [address] [facility] [address] [place] [address] Endocrinology 06/26/18 Phuong Callejas DPM [address] [place], [place] [id number] Podiatry 06/26/18 Sy Barrientos MD [address] [place] [address] Ophthalmology 06/26/18 [place] [address] [facility] [address] [place] [address] Pulmonary Disease 06/26/18 Rico Gasca MD [address] [facility] [address] [place] [address] Urology 06/26/18 Elle Landaverde MD [address] [address] Vascular Surgery 06/26/18 Kirk Truong MD [address] [facility] [address] [address] Gastroenterology 06/26/18 [place] [address] [facility] [address] [place] [address] General Surgery 06/26/18 documented as of this encounter
--- OUTSIDE RECORDS SUMMARY | 2024-05-26 12:38 | XMS_ITS | Encounter Summary ---
Author Organization [facility] Address [address] [facility] [facility] [address] [place] [address] Care Team Providers Care Senior Linux Unix Administrator Name Role Phone Etienne Florez MD Unavailable Enrique Gonzalez MD Unavailable [phone] Theresa Camargo MD Primary Care Provider [phone] Nelson Ross MD Unavailable Laz Valencia MD Unavailable Russell Moran MD Unavailable [phone] Yuliya Ibarra MD Unavailable Phuong Callejas DPM Unavailable Sy Barrientos MD Unavailable Russell Moran MD Unavailable Rico Gasca MD Unavailable Elle Landaverde MD Unavailable Kirk Truong MD Unavailable Shira Love DO Unavailable [phone] Theresa Camargo MD Unavailable [phone] Encounter Details Date Type Department Care Team (Latest Contact Info) Description 12/08/2019 Travel Social History Tobacco Use Types Packs/Day [...] < 140/90 Blood Pressure 127/52(2022 8:09 AM LAMP SHADE MAKER) No Alisa Jaramillo HEMOGLOBIN A1C < 7.0 Result Component 5.4( 12:00 AM CDT) No Alisa Jaramillo documented as of this encounter Visit Diagnoses Not on filedocumented in this encounter Care Teams Senior Linux Unix Administrator Relationship Specialty Start [place] [address] [id number] PCP - General Internal Medicine 03/31/18 05/30/22 [place] [address] [facility] [address] [place] [address] PCP - Attributed-MSSP 11/17/19 02/16/20 Eteinne Florez MD Orthopedic Surgery 12/09/14 [place] [address] [facility] [address] [place] [address] Oncology 09/15/[place] [address] [facility] [address] [place] [address] Neurology 06/26/18 [place] [address] [facility] [address] [place] [address] Cardiovascular Disease 06/26/18 [place] [address] [id number] Pulmonary Disease 06/26/18 Yuliya Ibarra MD [address] [facility] [address] [place] [address] Endocrinology 06/26/18 Phuong Callejas DPM [address] [place] [address] Podiatry 06/26/18 Sy Barrientos MD [address] [place] [address] [place] [address] Ophthalmology 06/26/18 [place] [address] [facility] [address] [place] [address] Pulmonary Disease 06/26/18 Rico Gasca MD [address] [facility] [address] [place] [address] Urology 06/26/18 Elle Landaverde MD [address] [facility] [address] [place] [address] Vascular Surgery 06/26/18 Kirk Truong MD [address] [facility] [address] [place] [address] Gastroenterology 06/26/18 [place] [address] [place] [phone] General Surgery 06/26/18 documented as of this encounter
--- OUTSIDE RECORDS SUMMARY | 2024-05-26 12:38 | XMS_ITS | Encounter Summary ---
Author Organization [facility] Address [address] [place] [address] Care Team Providers Care Pad Extraction Tender Name Role Phone Etienne Florez MD Unavailable Enrique Gonzalez MD Unavailable [phone] Theresa Camargo MD Primary Care Provider Nelson Ross MD Unavailable [phone] Laz Valencia MD Unavailable Russell Moran MD Unavailable Yuliya Ibarra MD Unavailable Phuong Callejas DPM Unavailable Sy Barrientos MD Unavailable Russell Moran MD Unavailable Rico Gasca MD Unavailable Elle Landaverde MD Unavailable [phone] Kirk Truong MD Unavailable [phone] Shira Love DO Unavailable [phone] Theresa Camargo MD Unavailable Reason for Visit * Reason Comments Refill Request Encounter Details Date Type Department Care Team (Late st Contact Info) Description 10/05/2019 Refill [facility] [address] [facility] [address] [place] [address] [place] [address] [facility] [address] [place] [address] Refill Request Social History Tobacco [...] < 140/90 Blood Pressure 127/52(2022 8:09 AM FULL FASHIONED GARMENT KNITTER) No Alisa Jaramillo HEMOGLOBIN A1C < 7.0 Result Component 5.4( 12:00 AM CDT) No Alisa Jaramillo documented as of this encounter Visit Diagnoses Not on filedocumented in this encounter Care Teams Pad Extraction Tender Relationship Specialty Start [place] [address] [facility] [address] [place] [address] PCP - General Internal Medicine 03/31/18 05/30/22 [place] [address] [facility] [address] [place] [address] PCP - Attributed-MSSP 07/18/19 10/17/19 Etienne Florez MD Orthopedic Surgery 12/09/14 [place] [address] [facility] [address] [address] [place] [address] Oncology 09/15/17 [place] [address] [facility] [address] [place] [address] Neurology 06/26/18 [place] [address] [facility] [address] [place] [address] Cardiovascular Disease 06/26/18 [place] [address] [address] Pulmonary Disease 06/26/18 Yuliya Ibarra MD [address] [facility] [address] [place] [address] Endocrinology 06/26/18 Phuong Callejas DPM [address] [place], [place] [address] Podiatry 06/26/18 Sy Barrientos MD [address] [facility] [place] [address] Ophthalmology 06/26/18 [place] [address] [address] Pulmonary Disease 06/26/18 Rico Gasca MD [address] [address] Urology 06/26/18 Elle Landaverde MD [address] [address] Vascular Surgery 06/26/18 Kikr Truong MD [address] [address] Gastroenterology 06/26/18 [place] [address] [facility] [address] [place] [address] General Surgery 06/26/18 documented as of this encounter
--- OUTSIDE RECORDS SUMMARY | 2024-05-26 12:38 | XMS_ITS | Encounter Summary ---
Author Organization [facility] Address [address] [address] Care Team Providers Care Mobile Unit Assistant Name Role Phone Etienne Florez MD Unavailable Enrique Gonzalez MD Unavailable [phone] Theresa Camargo MD Primary Care Provider [phone] Neslon Ross MD Unavailable [phone] Laz Valencia MD Unavailable Russell Moran MD Unavailable Yuliya Ibarra MD Unavailable [phone] Phuong Callejas DPM Unavailable [phone] Sy Barrientos MD Unavailable [phone] Russell Moran MD Unavailable Rico Gasca MD Unavailable Elle Landaverde MD Unavailable Kirk Truong MD Unavailable [phone] Shira Love DO Unavailable [phone] Theresa Camargo MD Unavailable [phone] Reason for Visit * Reason Comments Medication Check Encounter Details Date Type Department Care Team (Late st Contact Info) Description 11/23/2019 9:30 AM CDT Office Visit [facility] [id number] [facility] [address] [place] [address] [place] [address] [facility] [address] [place] [address] Type 2 diabetes mellitus without complication, with long-term current use of insulin (HCC) (Primary Dx); Primary hypothyroidism; Hyperparathyroidism (HCC); Mixed hyperlipidemia; Essential hypertension; Left ventricular hypertrophy; Lymphatic edema; Coronary artery disease involving [place] heart without angina pectoris, unspecified vessel or lesion type; Chronic atrial fibrillation (HCC); TIA (transient ischemic attack); OAB (overactive bladder); Malignant neoplasm of upper-outer quadrant of left breast in female, estrogen receptor positive (HCC); Osteopenia of multiple sites; Iron deficiency anemia due to chronic blood loss; Familial spastic paraplegia (HCC); Partial seizure (HCC); Atrial fibrillation, unspecified type (HCC); Vitamin D deficiency Social History Tobacco Use [...] Sign Reading Time Taken Comments Blood Pressure 110/62 11/23/2019 9:39 AM CDT Pulse 58 11/23/2019 9:39 AM CDT Temperature 36.8 ??C (98.2 ??F) 11/23/2019 9:39 AM CD T Respiratory Rate - - Oxygen Saturation 93% 11/23/2019 9:39 AM CDT Inhaled Oxygen Concentration - - Weight 85.7 kg (189 lb) 11/23/2019 9:39 AM CDT Height 165.1 cm (5' 5 ) 11/23/2019 9:39 AM CDT Body Mass Index 31.45 11/23/2019 9:39 AM CDT documented in this encounter Functional [...] as of this encounter Progress Notes * Aleisha Malhotra MA - 11/23/2019 9:38 AM CDT Pt's mammogram was due 08/2019 but was postponed due to covdid 19 BP 110/62 (BP SITE: RIGHT ARM, BP POSITION: SITTING, BP CUFF SIZE: 11) Pulse 58 Temp 98.2 ??F (36.8??C) (Oral) Ht 1.651 m (5' 5 ) Wt 85.7 kg (189 lb) SpO2 93% BMI 31.45 kg/m2 * Theresa Camargo MD - 11/23/2019 9:13 AM CDT SUBJECTIVE: Perla Leon is a 78 year old female with Chief Complaint Patient presents with ??? Medication Check Past Medical History: Diagnosis Date ??? Asthma [...] T1cN0(i-)M0, stage IA. ER pos 97% (strong), LA pos 23% (moderate), Her-2 neg (1+ on IHC), Ki-67 19% S/p 08/25/2017 excisional biopsy (Kate); spastic paraplegia: 1.1 cm grade 2/3 IDC. No LVI. Margin neg S/p 09/08/2017 sentinel node biopsy (Kaet): 2 neg nodes Med onc:Dr. Gonzalez: adjuvant [...] Not on file Occupational History ??? 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 Smoking status: [...] (ONE A DAY WITH IRON) tablet ??? MYRBETRIQ 50 MG tablet ??? nystatin (MYCOSTATIN) [id number] UNIT/GM powder ??? polyethyl glycol-propyl glycol (SYSTANE) 0.4-0.3 % [...] for follow up on: Multiple medical issues including: tia, cad, oab, breast cancer, cholesterol, diabetes, lymphedema, lvh, cad, afib, hypothyroidism . Here with daughter. She had labs at [facility] and [facility] and I reviewed them. Needs to stop calcium. Getting catheter care with a home nurse. Shehas home nurse and family to help her. She had cellulitis and it's better. No diarrhea. I reviewed her blood work and her calcium is really high I want her to stop calcium so we can recheck her lab. She was told her potassium was low is slightly low but a previous 1 from earlier in October was normal range. Vitals are good today blood pressure is good today she is keeping up with her multiple specialists on a regular basis. Sleeping ok. Appetite good. No chest pain. No SOB/wheezing. No abdominal pain. No nvdc. No edema. Needs to refill meds and update labs. Patient Care Team: Theresa Camargo MD as PCP - General (Internal Medicine) Theresa Camargo MD as PCP - [facility] Etienne Florez MD (Orthopedic Surgery) Enrique [...] OBJECTIVE: Wt Readings from Last 3 Encounters: 11/23/19 85.7 kg (189 lb) 10/27/19 82.6 kg (182 lb) 07/21/19 78 kg (172 lb) Temp Readings from Last 3 Encounters: 11/23/19 98.2 ??F (36.8 ??C) (Oral) 10/27/19 97.3 ??F (36.3 ??C) 04/13/19 98 ??F (36.7 ??C) (Oral) BP Readings from Last 3 Encounters: 11/23/19 110/62 10/27/19 142/76 10/18/19 124/72 Pulse Readings from Last 3 Encounters: 11/23/19 58 10/27/19 92 10/18/19 84 Body mass index is 31.45 kg/m??. General: alert, cooperative, no distress, oriented to person, place, and time, well appearing. Appears stated age. Uses cane and in wheelchair for ease of visit. Heart: normal rate, regular rhythm, normal S1, S2, 2/6 murmurs, rubs, clicks or gallops Lungs: clear to auscultation bilaterally Extremities: no clubbing, cyanosis or edema Neuro: negative findings: alert, oriented x3 speech normal in context and clarity memory intact grossly cranial nerves II-XII intact Recent Labs Component Name 03/05/19 1300 02/26/19 1027 11/06/18 1043 06/12/17 0823 SODIUM 141 142 144 - 141 POTASSIUM 3.1* 3.4* 3.6 - 3.5 CHLORIDE 102 102 105 - 102 CO2 28 34* 30 - 31 BUN 14 17 18 - 15 CREATININE 0.81 0.82 0.66 - 0.92 GLUCOSE 195* 150* 82 - 90 CALCIUM 10.4* 10.6* 10.5* - 10.4 ALBUMIN 3.9 - 3.9 - 4.2 ALKPHOS 95 - 75 - 90 ALT 20 - 16 - 21 AST - - 17 TBIL 0.3 - 0.2 - 0.4 TPROT 6.2* - 6.1* - 6.6 EGFR >60 >60 >60 - 60 - = values in this interval not displayed. Recent Labs Component Name 03/05/19 1301 WBC 7.0 RBC 4.69 HGB 12.6 HCT 41.0 MCV 87.4 MCH 26.9 MCHC 30.7* PLTCOUNT 319 Recent Labs Component Name 06/12/17 0823 12/30/16 0430 CHOL 113 89 TRIG 148 114 HDL 35* 34* LDLCALC 55 32 Recent Labs Component Name 03/05/19 1302 11/06/18 1043 08/26/17 0413 HGBA1C 6.4* 5.3 7.0* Recent Labs Component Name 11/06/18 1043 05/02/17 12/30/16 0430 TSH 2.9182 5.24 3.55 Recent Labs Component Name 03/05/19 1302 11/06/18 1043 06/13/16 1245 [id number] 28.4* 28.5* 18.01* HEALTH MAINTENANCE: Health Maintenance Topic Date Due ??? ZOSTER VACCINE (2 of 3) 10/19/2007 ??? DIABETES-FOOT EXAM WITH MONOFILAMENT 03/19/2019 ??? HCC (Chart Reviewer Use Only) 08/07/2019 ??? DIABETES-HGB A1C 09/04/2019 ??? MAMMOGRAM 09/15/2019 ??? DIABETES-EYE EXAM 11/24/2019 ??? ANNUAL MEDICARE WELLNESS VISIT 01/05/2020 ??? INFLUENZA VACCINE (1) 01/18/2020 ??? DTAP/TDAP/TD VACCINES (4 - Td) 08/29/2025 ??? COLON CA SCREENING 02/17/2029 ??? PNEUMOCOCCAL VACCINE 65+ Completed ??? BONE DENSITY TESTING Completed ??? HIB VACCINE Aged Out ??? MENINGOCOCCAL VACCINE Aged Out ASSESSMENT: ICD-10-CM 1. Type 2 diabetes mellitus without complication, with long-term current use of insulin E11.9 BASICMETABOLIC PANEL (CALCIUM TOTAL) Z79.4 2. Primary hypothyroidism E03.9 TSH REFLEX FREE T4 3. Hyperparathyroidism E21.3 4. Mixed hyperlipidemia E78.2 LIPID PROFILE 5. Essential hypertension I10 BASIC METABOLIC PANEL (CALCIUM TOTAL) 6. Left ventricular hypertrophy I51.7 7. Lymphatic edema I89.0 8. Coronary artery disease involving [place] heart without angina pectoris, unspecified vessel or lesion type I25.10 9. Chronic atrial fibrillation I48.20 10. TIA (transient ischemic attack) G45.9 11. OAB (overactive bladder) N32.81 12. Malignant neoplasm of upper-outer quadrant of left breast in female, estrogen receptor [id number] Z17.0 13. Osteopenia of multiple sites M85.89 14. Iron deficiency anemia due to chronic blood loss D50.0 15. 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 Partial seizure R56.9 17. Atrial fibrillation, unspecified type I48.91 18. Vitamin D deficiency E55.9 VITAMIN D 25-HYDROXY PLAN: Orders Placed This Encounter ??? TSH REFLEX FREE T4 ??? VITAMIN D 25-HYDROXY ??? LIPID PROFILE ??? BASIC METABOLIC PANEL (CALCIUM TOTAL) Update routine blood work she had some recent labs but her calcium was up her potassium was low send a repeat that. She did not get a thyroid or vitamin-D recently so I will check that. I will have her keep her same current medi documented in this encounter Plan of Treatment Not on file documented as of this encounter Goals Goal Patient Goal Type Associated Problems Recent Progress Patient-Stated? 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 8:09 AM ASSEMBLY MACHINE OPERATOR) No Alisa Jaramillo HEMOGLOBIN A1C < 7.0 Result Component 5.4( 12:00 AM CDT) No Alisa Jaramillo documented as of this encounter Procedures Procedure Name Priority Date/Time Associated Diagnosis Comments TSH REFLEX FREE T4 Routine 11/26/2019 8: 55 AM CDT Primary hypothyroidism VITAMIN D 25-HYDROXY Routine 11/26/2019 8:55 AM CDT Vitamin D deficiency BASIC METABOLIC PANEL (CALCIUM TOTAL) Routine 11/26/2019 8:55 AM CDT Type 2 diabetes mellitus without complication, with long-term current use of insulin (HCC) Essential hypertension LIPID PROFILE Routine 11/26/2019 8:55 AM CDT Mixed hyperlipidemia documented in this encounter Results * (ABNORMAL) BASIC METABOLIC PANEL (CALCIUM TOTAL) (11/26/2019 8:55 AM CDT) Glucose 149(H) 70 - 105 mg/dL [facility] INSURANCE BILL BUN 27(H) 9.8 - 20.1 mg/dL [facility] INSURANCE BILL Creatinine 1.03 0.57 - 1.11 mg/dL [facility] INSURANCE BILL eGFR by MDRD 52 mL/min/1.7 3m2 [facility] INSURANCE BILL eGFR by MDRD >60 mL/min/1.7 3m2 [facility] INSURANCE BILL Sodium 139 136 - 145 mmol/L [facility] INSURANCE BILL Potassium 4.0 3.5 - 5.1 mmol/L [facility] INSURANCE BILL Chloride 99 98 - 107 mmol/L [facility] INSURANCE BILL CO2 30 23 - 31 mmol/L [facility] INSURANCE BILL Calcium 11.6(H) 8.4 - 10.4 mg/dL [facility] INSURANCE BILL Comment:FASTING Blood BLOOD SPECIMEN / Unknown 11/26/2019 8:55 AM CDT 11/26/2019 Narrative Resulting Agency Comment Lab Testing performed at: [place] [address] ?? [place]TER[place] [id number] Theresa Camargo MD LAB - CHEMISTRY ROWAN QUIROZ Performing Organization Address [facility] de Phone Number [facility] INSURANCE BILL [address] [place] [address] * (ABNORMAL) LIPID PROFILE (11/26/2019 8:55 AM CDT) [facility] Cholesterol 124 <200 mg/dL [facility] INSURANCE BILL [...] Resulting Agency Comment Lab Testing performed at: [facility] [address] ?? [place]TERS [phone] Theresa Camargo MD LAB - CHEMISTRY ROWAN QUIROZ Performing Organization Address [facility] de Phone Number [facility] INSURANCE BILL [address] [place] [address] * (ABNORMAL) VITAMIN D 25-HYDROXY (11/26/2019 8:55 AM CDT) Pathologist [facility] Vitamin D, 25 Hydroxy 28.5(L) 30 - 100 ng/mL [facility] INSURANCE BILL Comment: Vitamin D Status: ?Deficiency ? <20 ? ng/mL ?Insufficiency ?? 20-30 ??ng/mL ?Sufficiency ? 30-100 ng/mL ?Toxicity ? >100 ?ng/mL FASTING Blood BLOOD SPECIMEN / Unknown 11/26/2019 8:55 AM CDT 11/26/2019 Narrative Resulting Agency Comment Lab Testing performed at: [place] [id number] ?? [place]ATTERS [id number] Theresa Camargo MD LAB - CHEMISTRY ROWAN QUIROZ Performing Organization Address [facility] Co de Phone Number [facility] INSURANCE BILL [address] [place] [address] * TSH REFLEX FREE T4 (11/26/2019 8:55 AM CDT) [facility] Signature TSH 2.812 0.350 - 4.940 uIU/mL [facility] INSURANCE BILL Comment:FASTING Blood BLOOD SPECIMEN / Unknown 11/26/2019 8:55 AM CDT 11/26/2019 Narrative Resulting Agency Comment Lab Testing performed at: [place] [address] [address] ?? Alice WATTERS [phone] Theresa Camargo MD LAB - CHEMISTRY ROWAN QUIROZ Performing Organization Address [facility] de Phone Number [facility] INSURANCE BILL [address] [place] [address] documented in this encounter Visit Diagnoses Diagnosis Type 2 diabetes mellitus without complication, with long-term current use of insulin (HCC)- Primary Primary hypothyroidism Unspecified hypothyroidism Hyperparathyroidism (HCC) Mixed hyperlipidemia Essential hypertension Left ventricular hypertrophy Cardiomegaly Lymphatic edema Other lymphedema Coronary artery disease involving [place] heart without angina pectoris, unspecified vessel or lesion type Chronic atrial fibrillation (HCC) Atrial fibrillation TIA (transient ischemic attack) Unspecified transient cerebral ischemia OAB (overactive bladder) 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, estrogen receptor positive (HCC) Osteopenia of multiple sites Iron deficiency anemia due to chronic blood loss 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 Partial seizure (HCC) Other convulsions Atrial fibrillation, unspecified type (HCC) Vitamin D deficiency documented in this encounter Care Teams Mobile Unit Assistant Relationship Specialty [place] [address] [place] [address] PCP - General Internal Medicine 03/31/18 05/30/22 [place] [address] [place] [address] PCP - Attributed-MSSP 11/17/19 02/16/20 Etienne Florez MD Orthopedic Surgery 12/09/14 [place] [address] [place] [address] Oncology 09/15/17 [place] [address] [place] [id number] Neurology 06/26/18 [place] [address] [facility] [address] [place] [address] Cardiovascular Disease 06/26/18 [place] [address] [address] Pulmonary Disease 06/26/18 Yuliya Ibarra MD [address] [facility] [address] [place] [id number] Endocrinology 06/26/18 Phuong Callejas DPM [address] [place] [address] Podiatry 06/26/18 Sy Barrientos MD [address] [place] [address] [place] [address] Ophthalmology 06/26/18 [place] [address] [address] Pulmonary Disease 06/26/18 Rico Gasca MD [address] [address] Urology 06/26/18 Elle Landaverde MD [address] [facility] [address] [place] [address] Vascular Surgery 06/26/18 Kirk Truong MD [address] [address] Gastroenterology 06/26/18 [place] [address] [facility] [address] [place] [address] General Surgery 06/26/18 documented as of this encounter
--- OUTSIDE RECORDS SUMMARY | 2024-05-26 12:38 | XMS_ITS | Encounter Summary ---
Author Organization [facility] Address [address] [place] [address] Care Team Providers Care Resident Caregiver Name Role Phone Etienne Florez MD Unavailable Enrique Gonzalez MD Unavailable [phone] Theresa Camargo MD Primary Care Provider Nelson Ross MD Unavailable [phone] Laz Valencia MD Unavailable Russell Moran MD Unavailable [phone] Yuliya Ibarra MD Unavailable Phuong Callejas DPM Unavailable Sy Barrientos MD Unavailable Russell Moran MD Unavailable [phone] Rico Gasca MD Unavailable [phone] Elle Landaverde MD Unavailable Kirk Truong MD Unavailable [phone] Shira Love Unavailable [phone] Brooke Haynes Unavailable [phone] Reason for Referral * Radiology Services (Emergency) - Closed Specialty Diagnoses / Procedures Referred By Alejandrina vale Referred To Contact Vascular Lab Diagnoses Edema of left lower extremity Procedures VAS LEFT VENOUS DUPLEX LE VAS LEFT VENOUS DUPLEX LE Asha Narvaez APRN-CNP [address] [facility] [address] [place] [address] [facility] Op Vascular Lab [address] [facility], [address] [place] [address] Referral ID Status Reason Start Date Expiration Date Visits Re quested Visits Authorized [id number] Closed 10/18/2019 04/15/2020 1 1 Reason for Visit * Reason Comments Pain Foot left foot Encounter Details Date Type Department Care Team (Late st Contact Info) Description 10/18/2019 2:40 PM CDT Office Visit [facility] - Family Medicine [address] [facility] [address] [place] [address] Asha Narvaez APRN-CNP [address] [facility] [address] [place] [address] Cellulitis of left lower extremity (Primary Dx); Edema of left lower extremity Social History Tobacco Use Types Packs/Day Years [...] Sign Reading Time Taken Comments Blood Pressure 124/72 10/18/2019 3:16 PM CDT Pulse 84 10/18/2019 3:16 PM CDT Temperature - - Respiratory Rate 18 10/18/2019 3:16 PM CDT Oxygen Saturation - - Inhaled Oxygen Concentration - - Weight - - Height 165.1 cm (5' 5 ) 10/18/2019 3:16 PM CDT Body Mass Index - - documented in [...] this encounter Patient Instructions * Patient Instructions* Asha Narvaez APRN-CNP - 10/18/2019 3:46 PM CDT Please start antibiotic and complete. Schedule doppler of the left leg Keep the leg elevated. Keep the leg clean. Please try to avoid scratching picking, or squeezing to open areas as this can cause worsening of infection and or scarring. If you notice increased redness, streaking, warmth, swelling, crater formation, sloughing of the skin, fever or chills please call during office hours or report to the ER on during nights or weekends. documented in this encounter Progress Notes * Asha Narvaez APRN-CNP - 10/18/2019 3:25 PM CDT Loc Anderson is a 78 year old female here for: Chief Complaint Patient presents with ??? Pain Foot left foot SUBJECTIVE: Patient presents with daughter with c/o left LE edema and redness that has been increasing. It was first noticed yesterday morning. The redness and swelling has been worsening. There is an area at the base of the middle toes on the left foot that has a bluish discoloration. There is an achy pain inthe foot. She reports a hx of lymphedema. She has not been using her compression machine twice a day as she is supposed to. She is taking furosemide with adequate urinary output from her Schmitt catheter. Past Medical History: Diagnosis Date ??? Asthma [...] T1cN0(i-)M0, stage IA. ER pos 97% (strong), [place] pos 23% (moderate), Her-2 neg (1+ on [...] mouth 2 times daily 60 tablet ??? clopidogrel (PLAVIX) 75 MG tablet [...] by mouth once daily ??? nystatin (MYCOSTATIN) 152102 UNIT/GM powder Apply to affected area 2 [...] once daily ??? verapamil SR 24hr (VERELAN) 240 MG [...] POLYPECTOMY ??? Hernia Repair 01/17/2010 ??? Hysterectomy 1985 ??? Knee Arthroscopy Right 05/06/2001 RT KNEE; [...] Not on file Occupational History ??? 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 Financial resource [...] file Gets together: Not on file Attends religion service: Not on file Active member of [...] mouth 2 times daily 60 tablet ??? clopidogrel (PLAVIX) 75 MG tablet [...] by mouth once daily ??? nystatin (MYCOSTATIN) 744481 UNIT/GM powder Apply to affected area 2 [...] times daily for 10 days 20 tablet 0 ??? verapamil SR 24hr [...] well appearing, and in no distress. BP 124/72 Pulse 84 Resp 18 Ht 1.651 m (5' 5 ) BMI 28.62 kg/m2 Body mass index is 28.62 kg/m??. Physical Exam Vitals reviewed. General appearance [...] S2, no murmurs, rubs, clicks or gallops, 1+ left leg edema, 2+ left foot edema, left pedal pulse YULI, no carotid bruits. Extremities - Steady gait, full range of motion, no clubbing nor cyanosis. LLE: erythematous, edematous, warm to touch, ashen discoloration at the base of the middle toes. Skin - warm, dry, no rashes in visible areas. ASSESSMENT: Encounter Diagnoses Name Primary? Cellulitis of left lower extremity Yes ??? Edema of left lower extremity PLAN: Orders Placed This Encounter ??? CBC WITH DIFFERENTIAL ??? COMPREHENSIVE METABOLIC PANEL ??? VAS LEFT VENOUS DUPLEX LE Standing Status: Future Number of Occurrences: 1 Standing Expiration Date: 10/17/2020 ??? sulfamethoxazole-trimethoprim (BACTRIM DS) 800-160 MG tablet Sig: Take 1 tablet by mouth 2 times daily for 10 days Dispense: 20 tablet Refill: 0 Leg appears to have cellulitis. Please start antibiotic and complete. Schedule doppler of the left leg to r/o alteration in circulation and DVT Keep the leg elevated. Keep the leg clean. Please try to avoid scratching picking, or squeezing to open areas as this can cause worsening of infection and or scarring. If you notice increased redness, streaking, warmth, swelling, crater formation, sloughing of the skin, fever or chills please call during office hours or report to the ER on during nights or weekends. Further recommendations pending the above results and patient's clinical course. Follow-up visit 1 weeks with PCP The patient indicates understanding of these issues and agrees with the plan. documented in this encounter Plan of Treatment Scheduled Orders Name Type Priority Associated Diagnoses Orde r Schedule CBC WITH DIFFERENTIAL Lab Routine Cellulitis of left lower extremity Ordered: 10/18/2019 COMPREHENSIVE METABOLIC PANEL Lab Routine Cellulitis of left lower extremity Ordered: 10/18/2019 documented as of this encounter Goals Goal Patient Goal Type Associated Problems Recent Progress Patient-Stated? 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 8:09 AM SPORTS WRITER) No Alisa Jaramillo HEMOGLOBIN A1C < 7.0 Result Component 5.4( 12:00 AM CDT) No Alisa Jaramillo documented as of this encounter Results * VAS LEFT VENOUS DUPLEX LE (10/18/2019 4:29 PM CDT) Anatomical Region Laterality Modality Lower Extremity, Upper Extremity Ultrasound 10/18/2019 4:11 PM CDT Narrative Procedure Note Noah Fernández MD - 10/18/2019 [facility] Vascular [facility] [address] [facility], [address] [place] [address] Lower Extremity Venous Ultrasound Report Pat.Name: LOC ANDERSON Pat.ID: [id number] .Date: 10/18/2019 Refer.MD: Unknown, Provider Exam Time: 4:11:00 PM Study Type:LE Venous Age: 7 1940,78Y Sex: FEMALE Sonogrphr: Thiago Sutherland RVT Pat. Stat.:Outpatient ICD - 9: I82.492 Acute embolism and thrombosis of other specified deep vein of left lower extremity CPT - 4: 01959 Procedures: Lower Extremity Venous - Left Race: 1 Visit ID: [id number] ++++++++++++++++++++++++++++++++++++ SUMMARY: ++++++++++++++++++++++++++++++++++++ There is no evidence [...] with proximal compression. Signed 10/18/2019 04:50 PM Naoh Fernández MD Asha Narvaez FACILITIES AND GROUNDS DIRECTOR-CLINICAL STAFF EDUCATOR VASCULAR LAB ORD ERABLES documented in this encounter Visit Diagnoses Diagnosis Cellulitis of left lower extremity- Primary Cellulitis and abscess of leg, except foot Edema of left lower extremity Edema Edema of left lower extremity Edema documented in this encounter Care Teams Resident Caregiver Relationship Specialty Start [place] [address] [facility] [address] [place], [place] [id number] PCP - General Internal Medicine 03/31/18 05/30/22 Brooke Haynes APRN-CLINICAL STAFF EDUCATOR [address] [facility] [address] [place] [address] PCP - Attributed-MSSP 10/18/19 11/16/19 Etienne Florez MD Orthopedic Surgery 12/09/14 [place] [address] [facility] [address] [place] [id number] Oncology 09/15/17 [place] [address] [facility] [address] [place] [address] Neurology 06/26/18 [place] [address] [facility] [address] [place] [address] Cardiovascular Disease 06/26/18 [place] [address] [id number] Pulmonary Disease 06/26/18 Yuliya Ibarra MD [address] [facility] [address] [place] [phone] Endocrinology 06/26/18 Phuong Callejas DPM [address] [place], [place] [address] Podiatry 06/26/18 Sy Barrientos MD [address] [place] [address] Ophthalmology 06/26/18 [place] [address] [address] Pulmonary Disease 06/26/18 Rico Gasca MD [address] [place] [address] Urology 06/26/18 Elle Landaverde MD [address] [place] [address] Vascular Surgery 06/26/18 Kirk Truong MD [address] [place] [address] Gastroenterology 06/26/18 [place] [address] [phone] General Surgery 06/26/18 documented as of this encounter
--- OUTSIDE RECORDS SUMMARY | 2024-05-26 12:38 | XMS_ITS | Encounter Summary ---
Author Organization [facility] Address [address] [facility] [facility] [place] [address] Care Team Providers Care Fortune Teller Name Role Phone Etienne Florez MD Unavailable [phone] Enrique Gonzalez MD Unavailable [phone] Theresa Camargo MD Primary Care Provider [phone] Nelson Ross MD Unavailable Laz Valencia MD Unavailable Russell Moran MD Unavailable Yuliya Ibarra MD Unavailable [phone] Phuong Callejas DPM Unavailable Sy Barrientos MD Unavailable Russell Moran MD Unavailable [phone] Rico Gasca MD Unavailable Elle Landaverde MD Unavailable Kirk Truong MD Unavailable Shira Love DO Unavailable [phone] Theresa Camargo MD Unavailable [phone] Encounter Details Date Type Department Care Team (Late st Contact Info) Description 07/21/2019 Orders Only [facility] [address] [facility], [address] [place] [address] Sahra Aragon Social History Tobacco Use Types Packs/Day Years [...] as of this encounter Progress Notes * Sahra Aragon - 07/21/2019 11:12 AM CST meds sent per Dr Norris AGING MECHANIC documented in this encounter Plan of Treatment Not on file documented as of this encounter Goals Goal Patient Goal Type Associated Problems Recent Progress Patient-Stated? 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 8:09 AM PACKAGING MECHANIC) No Alisa Jaramillo HEMOGLOBIN A1C < 7.0 Result Component 5.4( 12:00 AM CDT) No Alisa Jaramillo documented as of this encounter Visit Diagnoses Not on filedocumented in this encounter Care Teams Fortune Teller Relationship Specialty Start [place] [address] [place] [address] PCP - General Internal Medicine 03/31/18 05/30/22 [place] [address] [facility] [address] [place], [place] [id number] PCP - Attributed-MSSP 07/18/19 10/17/19 Etienne Florez MD Orthopedic Surgery 12/09/14 [place] [address] [facility] [address] [place] [address] Oncology 09/15/17 [place] [address] [facility] [address] [place] [address] Neurology 06/26/18 [place] [address] [facility] [address] [place] [address] Cardiovascular Disease 06/26/18 [place] [address] [id number] Pulmonary Disease 06/26/18 Yuliya Ibarra MD [address] [facility] [address] [place] [address] Endocrinology 06/26/18 Phuong Callejas DPM [address] [place], [place] [address] Podiatry 06/26/18 Sy Barrientos MD [address] [place] [address] Ophthalmology 06/26/18 [place] [address] [address] Pulmonary Disease 06/26/18 Rico Gasca MD [address] [place] [address] Urology 06/26/18 Elle Landaverde MD [address] [place] [address] Vascular Surgery 06/26/18 Kirk Truong MD [address] [place] [address] Gastroenterology 06/26/18 [place] [address] [phone] General Surgery 06/26/18 documented as of this encounter
--- OUTSIDE RECORDS SUMMARY | 2024-05-26 12:38 | XMS_ITS | Encounter Summary ---
Author Organization [facility] Address [address] [facility] [place] [address] Care Team Providers Care Per Diem Physical Therapist Assistant Name Role Phone Etienne Florez MD Unavailable Enrique Gonzalez MD Unavailable Theresa Camargo MD Primary Care Provider [phone] Nelson Ross MD Unavailable Laz Valencia MD Unavailable Russell Moran MD Unavailable [phone] Yuliya Ibarra MD Unavailable Phuong Callejas DPM Unavailable [phone] Sy Barrientos MD Unavailable Russell Moran MD Unavailable Rico Gasca MD Unavailable [phone] Elle Landaverde MD Unavailable Kirk Truong MD Unavailable [phone] Shira Love DO Unavailable [phone] Theresa Camargo MD Unavailable [phone] Reason for Visit * Reason Comments Recurrent UTI Encounter Details Date Type Department Care Team (Late st Contact Info) Description 12/01/2019 10:10 AM CDT Office Visit [facility] [address] [place] [address], [address], [place] [address] Hussain Norris MD [address] [place] [address] DR [address] [place] [address] Recurrent UTI (Primary Dx); CON (stress urinary incontinence, female) Social History Tobacco Use Types Packs/Day Years [...] - Inhaled Oxygen Concentration - - Weight 81.6 kg (180 lb) 12/01/2019 10:28 AM CDT Height 165.1 cm (5' 5 ) 12/01/2019 10:28 AM CDT Body Mass Index 29.95 12/01/2019 10:28 AM CDT documented in this encounter Functional [...] as of this encounter Progress Notes * Hussain Norris MD - 12/01/2019 10:10 AM CDT Images from the original note were not included. [facility] Urologic Surgery Established Patient Note Encounter Date: 12/01/2019 Patient Name: Perla Leon Referring Provider: Theresa Camargo MD Chief Complaint: Urinary catheter History of Present Illness: Ms. Leon is a 79 year old female here for follow-up with her daughter for urinary incontinence, incomplete emptying of bladder. Chronic issue. She followed with Dr. Gasca then transferred care herein 03/2019. Catheter placed at that time for incontinence, quality of life. She had a couple UTI's and CT 04/2019 showed cystitis. Home health changes catheter every 3 weeks due to sediment and clogging. She also flushes daily. Denies any hematuria, fevers, chills, pain, nausea, vomiting. 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 Had a hysterectomy and prolapse repair. Past Medical History: Diagnosis Date ??? Asthma [...] T1cN0(i-)M0, stage IA. ER pos 97% (strong), [place] pos 23% (moderate), Her-2 neg (1+ on [...] Not on file Occupational History ??? 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 Smoking status: Never [...] ??? CAD (Coronary Artery Disease) Brother CHF Medications: Outpatient Encounter Medications as of 12/01/2019 Medication Sig Dispense Refill ??? albuterol HFA [...] by mouth once daily ??? nystatin (MYCOSTATIN) 288431 UNIT/GM powder Apply to affected area 2 [...] (catheter not draining) 500 mL 3 No facility-administered encounter medications on file as of 12/01/2019. Allergies: Allergies Allergen Reactions ??? Advair Diskus YEAS INFECTION ??? Aricept [Donepezil] Other I dont remember ??? Diltiazem Swelling ??? Metformin Diarrhea ??? Fluticasone Diarrhea ??? Piper Longum ??? Salmeterol Diarrhea ??? Sotalol Other Hair loss Review of Systems: 10 point review of systems performed. Pertinent details listed in HPI. All other systems negative Vitals and Ins/Outs: Ht 1.651 m (5' 5 ) Wt 81.6 kg (180 lb) BMI 29.95 kg/m2 Body mass index is 29.95 kg/m??. Physical Examination: General: Alert, oriented to person, place, situation. No distress. White female, obese HEENT: Normocephalic, atraumatic. Extraocular muscles intact, no scleral icterus. Normal conjunctiva. No lip cyanosis. Neck: Midline trachea, no obvious masses Cardiovascular: regular rate, No digital clubbing or lower extremity edema Respiratory: Non-labored respirations. Normal rate without recruitment of accessory respiratory muscles. Comfortable, symmetric respiratory effort : 22Fr olivas draining clear yellow urine Hematological/Immunological: no echymosis, no bleeding gums and no jaundice Skin: Normal coloration and turgor. No jaundice. No visible lesions, rashes, ulcers MSK: Wheelchair-bound Neurological: Weakness throughout Psychiatric: appropriate insight. AOx3. Normal mood and affect Laboratory: Recent Labs Component Name 11/26/19 0945 11/26/19 0855 03/05/19 1301 03/05/19 1300 11/06/18 1043 12/09/17 1545 WBC - - 7.0 - - 7.2 - 7.5 RBC - - 4.69 - - 4.59 - 4.75 HGB - - 12.6 - - 11.2* - 11.0* HCT - - 41.0 - - 38.2 - 36.4 MCV - - 87.4 - - 83.2 - 77* PLTCOUNT - - 319 - - 327 - 326 SODIUM 139 139 - 141 - 144 - - POTASSIUM 3.7 4.0 - 3.1* - 3.6 - - CHLORIDE 100 99 - 102 - 105 - - CO2 29 30 - 28 - 30 - - BUN 26* 27* - 14 - 18 - - CREATININE 1.00 1.03 - 0.81 - 0.66 - - GLUCOSE 142* 149* - 195* - 82 - - CALCIUM 11.3* 11.6* - 10.4* - 10.5* - - ALBUMIN 4.0 - - 3.9 - 3.9 - - ALKPHOS 93 - - 95 - 75 - - ALT 22 - - 20 - 16 - - AST 17 - - 17 - 15 - - TBIL 0.3 - - 0.3 - 0.2 - - TPROT 7.0 - - 6.2* - 6.1* - - - = values in this interval not displayed. Office Visit on 12/01/19 URINALYSIS AUTO - POINT OF CARE (AMB) STL Result Value Ref Range Clarity UA POCT clear Color UA POCT yellow Leukocyte UA 3+ Negative Nitrite UA POCT - Negative Urobilinogen UA 0.2 0.1 - 1.0 Protein UA POCT - Negative pH UA 6.0 5.0 - 8.0 pH units Blood UA 3+ Negative Specific [place] UA POCT 1.005 1.002 - 1.030 Ketone UA - Negative Bilirubin UA POCT - Negative Glucose UA 2+ Negative Expiration Date [id number] Lot # [id number] QC Verified Yes Yes Imaging: No results found. Assessment/Plan: No problems updated. Urinary incontinence, stress, overflow, and functional Incomplete emptying of bladder -continue olivas catheter and home helath will change every 3 weeks to limit obstruction from sediment. Irrigate and aspirate as needed. Urine was very clear today. She already drinks plenty of fluids. Also discussed she will likely have an occasional infection given the chronic indwelling catheter in consultation. Would not check a urine culture unless she has true symptoms. If checking culture, change catheter first -RTC 6 months Hussain Norris MD [facility] [phone] Exchange [phone] documented in this encounter Plan of Treatment Not on file documented as of this encounter Goals Goal Patient Goal Type Associated Problems Recent Progress Patient-Stated? 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 8:09 AM WHOLESALER) No Alisa Jaramillo HEMOGLOBIN A1C < 7.0 Result Component 5.4( 12:00 AM CDT) No Alisa Jaramillo documented as of this encounter Procedures Procedure Name Priority Date/Time Associated Diagnosis Comments URINALYSIS AUTO - POINT OF CARE (AMB) STL Routine 12/01/2019 Recurrent UTI documented in this encounter Results * URINALYSIS AUTO - POINT OF CARE (AMB) STL (12/01/2019) Clarity UA POCT clear Color UA POCT yellow Leukocyte UA 3+ Negative Nitrite UA POCT - Negative Urobilinogen UA 0.2 0.1 - 1.0 Protein UA POCT - Negative pH UA 6.0 5.0 - 8.0 pH units Blood UA 3+ Negative Specific [place] UA POCT 1.005 1.002 - 1.030 Ketone UA - Negative Bilirubin UA POCT - Negative Glucose UA 2+ Negative Expiration Date [id number] Lot # [id number] QC Verified Yes Yes Urine URINE / Unknown 12/01/2019 Hussain Norris MD LAB - POINT OF CARE ORDERABLES documented in this encounter Visit Diagnoses Diagnosis Recurrent UTI- Primary Urinary tract infection, site not specified CON (stress urinary incontinence, female) Female stress incontinence documented in this encounter Care Teams Per Diem Physical Therapist Assistant Relationship Specialty [place] [address] [facility] [address] [place] [address] PCP - General Internal Medicine 03/31/18 05/30/22 [place] [address] [facility] [address] [place], [place] [address] PCP - Attributed-MSSP 11/17/19 02/16/20 Etienne Florez MD Orthopedic Surgery 12/09/14 [place] [address] [address] Oncology 09/15/17 [place] [address] [address] Neurology 06/26/18 [place] [address] [facility] [address] [place] [address] Cardiovascular Disease 06/26/18 [place] [address] [id number] Pulmonary Disease 06/26/18 Yuliya Ibarra MD [address] [place] [address] Endocrinology 06/26/18 Phuong Callejas DPM [address] [place], [place] [address] Podiatry 06/26/18 Sy Barrientos MD [address] [place] [address] Ophthalmology 06/26/18 [place] [address] [address] Pulmonary Disease 06/26/18 Rico Gasca MD [address] [facility] [address] [place] [address] Urology 06/26/18 Elle Landaverde MD [address] [facility] [address] [place] [address] Vascular Surgery 06/26/18 Kirk Truong MD [address] [facility] [address] [place] [address] Gastroenterology 06/26/18 [place] [address] [place] [address] [place] [address] General Surgery 06/26/18 documented as of this encounter
--- OUTSIDE RECORDS SUMMARY | 2024-05-26 12:38 | XMS_ITS | Encounter Summary ---
Author Organization [facility] Address [address] [place] [address] Care Team Providers Care Chief Executive Officer Name Role Phone Etienne Florez MD Unavailable Enrique Gonzalez MD Unavailable [phone] Theresa Camargo MD Primary Care Provider [phone] Nelson Ross MD Unavailable Laz Valencia MD Unavailable Russell Moran MD Unavailable Yuliya Ibarra MD Unavailable Phuong Callejas DPM Unavailable Sy Barrientos MD Unavailable [phone] Russell Moran MD Unavailable [phone] Rico Gasca MD Unavailable Elle Landaverde MD Unavailable [phone] Kirk Truong MD Unavailable [phone] Shira Love DO Unavailable [phone] Brooke Haynes [facility] Unavailable [phone] Reason for Visit * Reason Comments Refill Request Encounter Details Date Type Department Care Team (Late st Contact Info) Description 06/28/2019 Refill [facility] Neurosciences [address] [facility] [address] [place] [address] [place] [address] [facility] [address] [place] [address] Refill Request Social History Tobacco [...] Notes * Telephone Encounter - Eva Sinha Audrey - 06/29/2019 7:35 AM CST Perla Leon Allergies Allergen Reactions ??? Advair Diskus YEAS INFECTION ??? Aricept [Donepezil] Other I dont remember ??? Diltiazem Swelling ??? Metformin Diarrhea ??? Fluticasone Diarrhea ??? Piper Longum ??? Salmeterol Diarrhea ??? Sotalol Other Hair loss Requested Prescriptions Pending Prescriptions Disp Refills ??? amitriptyline (ELAVIL) 25 MG tablet [Pharmacy Med Name: AMITRIPTYLINE TABS 25MG] 180 tablet 4 Sig: TAKE 2 TABLETS AT BEDTIME LAST FILL: 03/31/2019 LAST OV: 05/06/2019 E WASHER PILER documented in this encounter Plan of Treatment Not on file documented as of this encounter Goals Goal Patient Goal Type Associated Problems Recent Progress Patient-Stated? 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 8:09 AM WHITE WASHER PILER) No Alisa Jaramillo HEMOGLOBIN A1C < 7.0 Result Component 5.4( 12:00 AM CDT) No Alisa Jaramillo documented as of this encounter Visit Diagnoses Not on filedocumented in this encounter Care Teams Chief Executive Officer Relationship Specialty [place] [address] [facility] [address] [place] [address] PCP - General Internal Medicine 03/31/18 05/30/22 Brooke Haynes, BRAN MIXER-SHAREPOINT TRAINER [address] [facility] [address] [place] [address] PCP - Attributed-MSSP 06/19/19 07/17/19 Etienne Florez MD Orthopedic Surgery 12/09/14 [place] [address] [facility] [address] [place] [address] Oncology 09/15/17 [place] [address] [facility] [address] [place] [address] Neurology 06/26/18 [place] [address] [facility] [address] [place] [address] Cardiovascular Disease 06/26/18 [place] [address] [id number] Pulmonary Disease 06/26/18 Yuliya Iabrra MD [address] [place] [address] Endocrinology 06/26/18 Phuong Callejas DPM [address] [place], [place] [address] Podiatry 06/26/18 Sy Barrientos MD [address] [place] [address] [place] [address] Ophthalmology 06/26/18 [place] [address] [address] Pulmonary Disease 06/26/18 Rico Gasca MD [address] [place] [address] Urology 06/26/18 Elle Landaverde MD [address] [place] [address] Vascular Surgery 06/26/18 Kirk Truong MD [address] [place] [address] Gastroenterology 06/26/18 [place] [address] [place] [address] General Surgery 06/26/18 documented as of this encounter
--- OUTSIDE RECORDS SUMMARY | 2024-05-26 12:38 | XMS_ITS | Encounter Summary ---
Author Organization [facility] Address [address] [facility] [place] [address] Care Team Providers Care Ocean Freight Forwarder Name Role Phone Etienne Florez MD Unavailable [phone] Enrique Gonzalez MD Unavailable [phone] Theresa Camargo MD Primary Care Provider Nelson Ross MD Unavailable Laz Valencia MD Unavailable Russell Moran MD Unavailable Yuliya Ibarra MD Unavailable [phone] Phuong Callejas DPM Unavailable [phone] Sy Barrientos MD Unavailable [phone] Russell Moran MD Unavailable [phone] Rico Gasca MD Unavailable [phone] Elle Landaverde MD Unavailable Kirk Truong MD Unavailable [phone] Shira Love DO Unavailable Theresa Camargo MD Unavailable [phone] Reason for Visit * Reason Comments Refill Request Encounter Details Date Type Department Care Team (Late st Contact Info) Description 01/15/2020 Refill [facility] Family Medicine [address] [facility] [address] [place] [address] [place] [address] [facility] [address] [place] [address] Refill Request Social History Tobacco [...] encounter Miscellaneous Notes * Telephone Encounter - KoromaNelly mendez Jeronimo - 01/17/2020 11:04 AM CDT Requested Prescriptions Pending Prescriptions Disp Refills ??? potassium chloride ER (KLOR-CON) 20 MEQ tablet [Pharmacy Med Name: POTASSIUM CL ER 20 MEQ TABLET] 120 tablet 3 Sig: TAKE 1 TABLET BY MOUTH FOUR TIMES A DAY Requested Prescriptions Pending Prescriptions Disp Refills ??? potassium chloride ER (KLOR-CON) 20 MEQ tablet [Pharmacy Med Name: POTASSIUM CL ER 20 MEQ TABLET] 120 tablet 3 Sig: TAKE 1 TABLET BY MOUTH FOUR TIMES A DAY Last office visit: 11/23/19 Last refill: 09/20/19 Next appointment: 05/22/20 documented in this encounter Plan of Treatment Not on file documented as of this encounter Goals Goal Patient Goal Type Associated Problems Recent Progress Patient-Stated? 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 8:09 AM ECONOMIC MANAGER) No Jared Jaramilloa HEMOGLOBIN A1C < 7.0 Result Component 5.4( 12:00 AM CDT) No Alisa Jaramillo documented as of this encounter Visit Diagnoses Not on filedocumented in this encounter Care Teams Ocean Freight Forwarder Relationship Specialty [place] [address] [facility] [address] [place] [address] PCP - General Internal Medicine 03/31/18 05/30/22 [place] [address] [facility] [address] [place] [address] PCP - Attributed-MSSP 11/17/19 02/16/20 Etienne Florez MD Orthopedic Surgery 12/09/14 [place] [address] [facility] [address] [place] [address] Oncology 09/15/17 [place] [address] [facility] [address] [place] [address] Neurology 06/26/18 [place] [address] [facility] [address] [place] [address] Cardiovascular Disease 06/26/18 [place] [address] [address] Pulmonary Disease 06/26/18 Yuliya Ibarra MD [address] [place] [address] Endocrinology 06/26/18 Phuong Callejas DPM [address] [place], [place] [address] Podiatry 06/26/18 Sy Barrientos MD [address] [place] [address] [place] [address] Ophthalmology 06/26/18 [place] [address] [address] Pulmonary Disease 06/26/18 Rico Gasca MD [address] [place] [address] Urology 06/26/18 Elle Landaverde MD [address] [place] [address] Vascular Surgery 06/26/18 Kirk Truong MD [address] [place] [address] Gastroenterology 06/26/18 [place] [address] [place] [address] General Surgery 06/26/18 documented as of this encounter
--- OUTSIDE RECORDS SUMMARY | 2024-05-26 12:38 | XMS_ITS | Encounter Summary ---
Author Organization [facility] Address [address] [facility] [place] [address] Care Team Providers Care Sales Account Specialist Name Role Phone Etienne Folrez MD Unavailable Enrique Gonzalez MD Unavailable [phone] Theresa Camargo MD Primary Care Provider [phone] Nelson Ross MD Unavailable Laz Valencia MD Unavailable Russell Moran MD Unavailable [phone] Yuliya Ibarra MD Unavailable Phuong Callejas DPM Unavailable Sy Barrientos MD Unavailable [phone] Russell Moran MD Unavailable Rico Gasca MD Unavailable [phone] Elle Landaverde MD Unavailable Kirk Truong MD Unavailable Shira Love DO Unavailable [phone] Theresa Camargo MD Unavailable [phone] Encounter Details Date Type Department Care Team (Latest Contact Info) Description 11/23/2019 Travel Social History Tobacco Use Types Packs/Day [...] < 140/90 Blood Pressure 127/52(2022 8:09 AM ARRANGING FUNERAL DIRECTOR) No Alisa Jaramillo HEMOGLOBIN A1C < 7.0 Result Component 5.4( 12:00 AM CDT) No Alisa Jaramillo documented as of this encounter Visit Diagnoses Not on filedocumented in this encounter Care Teams Sales Account Specialist Relationship Specialty Start [place] [address] [place] [id number] PCP - General Internal Medicine 03/31/18 05/30/22 [place] [address] [facility] [address] [place] [address] PCP - Attributed-MSSP 11/17/19 02/16/20 Etienne Florez MD Orthopedic Surgery 12/09/14 [place] [address] [facility] [address] [place] [address] Oncology 09/15/17 [place] [address] [facility] [address] [place] [address] Neurology 06/26/18 [place] [address] [facility] [address] [place] [address] Cardiovascular Disease 06/26/18 [place] [address] [address] Pulmonary Disease 06/26/18 Yuliya Ibarra MD [address] [facility] [address] [place] [address] Endocrinology 06/26/18 Phuong Callejas DPM [address] [place] [address] Podiatry 06/26/18 Sy Barrientos MD [address] [place] [address] [place] [address] Ophthalmology 06/26/18 [place] [address] [place] [address] [address] [address] Pulmonary Disease 06/26/18 Rico Gasca MD [address] [facility] [address] [place] [address] Urology 06/26/18 Elle Landaverde MD [address] [facility] [address] [place] [address] Vascular Surgery 06/26/18 Kirk Truong MD [address] [facility] [address] [place] [address] Gastroenterology 06/26/18 [place] [address] [address] [place] [address] General Surgery 06/26/18 documented as of this encounter
--- OUTSIDE RECORDS SUMMARY | 2024-05-26 12:38 | XMS_ITS | Encounter Summary ---
Author Organization [facility] Address [address] [facility] [place] [address] Care Team Providers Care Senior Ui Ux Developer Name Role Phone Etienne Florez MD Unavailable Enrique Gonzalez MD Unavailable [phone] Theresa Camargo MD Primary Care Provider Nelson Ross MD Unavailable Laz Valencia MD Unavailable Russell Moran MD Unavailable Yuliya Ibarra MD Unavailable [phone] Phuong Callejas DPM Unavailable [phone] Sy Barrientos MD Unavailable [phone] Russell Moran MD Unavailable Rico Gasca MD Unavailable [phone] Elle Landaverde MD Unavailable [phone] Kirk Truong MD Unavailable Shira Love DO Unavailable [phone] Brooke Haynes YAEL-SUPERVISOR FLOOR ASSEMBLY Unavailable [phone] Reason for Visit * Reason Onset Date Comments Question 06/24/2019 Encounter Details Date Type Department Care Team (Late st Contact Info) Description 06/24/2019 Telephone [facility] [address] [place] [address], [address] [address] Hussain Norris MD [address] [place] [address] [address] [place] [address] Question Social History Tobacco Use Types Packs/Day [...] * Telephone Encounter - Nelly Beasley - 06/24/2019 2:24 PM CST Eric from Home Health called. She changed the patient's catheter today as it was blocked with a thick sediment. Eric asked whether she needed a ua and urine culture at this time or whether she shouldobserve her. Per Brooke, Eric was told to observe for now. TO PICKER documented in this encounter Plan of Treatment Not on file documented as of this encounter Goals Goal Patient Goal Type Associated Problems Recent Progress Patient-Stated? 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 8:09 AM POTATO PICKER) No YeceniaAlisa marks HEMOGLOBIN A1C < 7.0 Result Component 5.4( 12:00 AM CDT) No ClintAmberAlisa documented as of this encounter Visit Diagnoses Not on filedocumented in this encounter Care Teams Senior Ui Ux Developer Relationship Specialty [place] [address] [facility] [address] [place] [address] PCP - General Internal Medicine 03/31/18 05/30/22 Brooke Haynes APRN-SUPERVISOR FLOOR ASSEMBLY [address] [facility] [address] [place] [address] PCP - Attributed-MSSP 06/19/19 07/17/19 Etienne Florez MD Orthopedic Surgery 12/09/14 [place] [address] [facility] 100 [place] [address] Oncology 09/15/17 [place] [address] [facility] [address] [place] [address] Neurology 06/26/18 [place] [address] [facility] [address] [place] [address] Cardiovascular Disease 06/26/18 [place] [address] [address] Pulmonary Disease 06/26/18 Yuliya Ibarra MD [address] [place] [address] Endocrinology 06/26/18 Phuong Callejas DPM [address] [place], [place] [address] Podiatry 06/26/18 Sy Barrientos MD [address] [place] [address] Ophthalmology 06/26/18 [place] [address] [id number] Pulmonary Disease 06/26/18 Rico Gasca MD [address] [facility] [address] [place] [address] Urology 06/26/18 Elle Landaverde MD [address] [facility] [address] [place] [address] Vascular Surgery 06/26/18 Kirk Truong MD [address] [facility] [address] [place] [address] Gastroenterology 06/26/18 [place] [address] [address] [facility] [address] [place] [address] General Surgery 06/26/18 documented as of this encounter
--- OUTSIDE RECORDS SUMMARY | 2024-05-26 12:38 | XMS_ITS | Encounter Summary ---
Author Organization [facility] Address [address] [facility] [place] [address] Care Team Providers Care Coin Wrapping Machine Operator Name Role Phone Etienne Florez MD Unavailable Enrique Gonzalez MD Unavailable [phone] Theresa Camargo MD Primary Care Provider [phone] Nelson Ross MD Unavailable Laz Valencia MD Unavailable Russell Moran MD Unavailable Yuliya Ibarra MD Unavailable Phuong Callejas DPM Unavailable Sy Barrientos MD Unavailable [phone] Russell Moran MD Unavailable Rico Gasca MD Unavailable Elle Landaverde MD Unavailable Kirk Truong MD Unavailable [phone] Shira Love DO Unavailable [phone] Brooke Haynes Unavailable [phone] Reason for Visit * Reason Onset Date Comments Question 10/18/2019 Encounter Details Date Type Department Care Team (Late st Contact Info) Description 10/18/2019 Telephone [facility] - Family Medicine [address] [facility] [address] [place] [address] [place] [address] [facility] [address] [place] [address] Question Social History Tobacco Use [...] * Telephone Encounter - Kelly Bashir - 10/18/2019 9:20 AM CDT Patient notified and scheduled for 10/17 with Asha * Telephone Encounter - Bonny Ballesteros APRN-CNP - 10/18/2019 8:50 AM CDT Please book her an apt to come in and see one of the SPORTS INSTRUCTOR's today * Telephone Encounter - Kelly Bashir - 10/18/2019 8:30 AM CDT Patient states she woke up on 10/16 with her Left foot red swollen and painful to the touch the footis also blue at the toe area.Patient states that on 10/17 the Left foot is still swollen and the toe area is swolling and the blue area is spreading patient would like advise from PCP please advise. documented in this encounter Plan of Treatment Not on file documented as of this encounter Goals Goal Patient Goal Type Associated Problems Recent Progress Patient-Stated? 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 8:09 AM INFO PRINT PRESS OPERATOR) No Alisa Jaramillo HEMOGLOBIN A1C < 7.0 Result Component 5.4( 12:00 AM CDT) No Alisa Jaramillo documented as of this encounter Visit Diagnoses Not on filedocumented in this encounter Care Teams Coin Wrapping Machine Operator Relationship Specialty Start [place] [address] [employer] [address] [place], [place] [address] PCP - General Internal Medicine 03/31/18 05/30/22 Brooke Haynes APRN-GED INSTRUCTOR [address] [facility] [address] [place] [address] PCP - Attributed-MSSP 10/18/19 11/16/19 Etienne Florez MD Orthopedic Surgery 12/09/14 [place] [address] [facility] [address] [place] [address] Oncology 09/15/17 [place] [address] [facility] [address] [place] [address] Neurology 06/26/18 [place] [address] [facility] [address] [place] [address] Cardiovascular Disease 06/26/18 [place] [address] [place] [address] [place] [id number] Pulmonary Disease 06/26/18 Yuliya Ibarra MD [address] [facility] [address] [place] [address] Endocrinology 06/26/18 Phuong Callejas DPM [address] [place], [place] [address] Podiatry 06/26/18 Sy Barrientos MD [address] [place] [address] [place] [address] Ophthalmology 06/26/18 [place] [address] [place] [id number] Pulmonary Disease 06/26/18 Rico Gasca MD [address] [facility] [address] [place] [address] Urology 06/26/18 Elle Landaverde MD [address] [facility] [address] [place] [address] Vascular Surgery 06/26/18 Kirk Truong MD [address] [facility] [address] [place] [address] Gastroenterology 06/26/18 [place] [address] [address] [place] [address] General Surgery 06/26/18 documented as of this encounter
--- OUTSIDE RECORDS SUMMARY | 2024-05-26 12:38 | XMS_ITS | Encounter Summary ---
Author Organization [facility] Address [address] [place] [address] Care Team Providers Care Closing Manager Name Role Phone Etienne Florez MD Unavailable Enrique Gonzalez MD Unavailable [phone] Theresa Camargo MD Primary Care Provider [phone] Nelson Ross MD Unavailable Laz Valencia MD Unavailable Russell Moran MD Unavailable [phone] Yuliya Ibarra MD Unavailable [phone] Phuong Callejas DPM Unavailable Sy Barrientos MD Unavailable Russell Moran MD Unavailable [phone] Rico Gasca MD Unavailable [phone] Elle Landaverde MD Unavailable Kirk Truong MD Unavailable [phone] Shira Love DO Unavailable [phone] Theresa Camargo MD Unavailable [phone] Reason for Visit * Reason Onset Date Comments Medication Issue 08/06/2019 Encounter Details Date Type Department Care Team (Late st Contact Info) Description 08/06/2019 Telephone [facility] - Family Medicine [address] [facility] [address] [place] [address] [place] [address] [facility] [address] [place] [address] Medication Issue Social History Tobacco Use Types Packs/Day Years [...] Notes * Telephone Encounter - Bonny Ballesteros RN - 08/30/2019 7:39 AM CDT See additional phone call from 08/27/2019 * Telephone Encounter - Bonny Ballesteros RN - 08/27/2019 12:23 PM CDT I spoke to nurse Eric [phone] The blood work has been dropped off at the lab and we are just waiting on the results to come in now * Telephone Encounter - Melinda Gore - 08/26/2019 11:06 AM CDT Home health notified. States she will go back out and draw labs * Telephone Encounter - Bonny Ballesteros RN - 08/26/2019 10:49 AM CDT 08/10/2019 the BMP with home health was drawn (scanned in media) Potassium was 4.0 She is almost out of potassium She is taking 80 meq per day since hospital stay in [place] Family wants a refill I called Home health [phone] and they will go back out for a STAT BMP tomorrow 08/27/2019 Daughter notified * Telephone Encounter - Wanda Castro - 08/26/2019 9:07 AM CDT Daughter states pharmacy need verbal to dispense potassium early. Daughter states that since February mom is taking 8 pills a day instead of 4 so she is running out sooner than usual * Telephone Encounter - Meilnda Gore - 08/06/2019 11:55 AM CDT Left message on patients voicemail with detailed information. Instructed to call back if any concerns. * Telephone Encounter - Brooke Haynes APRN-CNP - 08/06/2019 10:57 AM CDT In light of current virus situation, rx filled. Should try to get labs done but maybe wait a month due to situation. * Telephone Encounter - Berna Teixeira - 08/06/2019 9:25 AM CDT Who is calling? Daughter, Bekah Harmon If other than self is caller listed on the HIPAA? yes What is the reason for call? Pt was advised she could not get another refill of potassium until shehas had blood work done. Bekah advises they are having some difficulty in finding a lab due to someclosures (?) at least on the [place] side. I provided numbers for both [facility] and [facility] so that she could see where they could get in. Bekah states they have gone through the potassium faster than normal because when she was at [facility] in April they discovered her potassium was low and advised she should double the dosage to 4 in the AM with breakfast and 4 in the PM with dinner. Pt will be going through the remainder ofher last bottle very quickly. She ended up back in the ER again after that and her potassium was still very low. Pt requesting the last refill ( that had been denied) be approved at least for a month. Expected Response from the Clinic? ( ex. Call back, etc..)call back documented in this encounter Plan of Treatment Not on file documented as of this encounter Goals Goal Patient Goal Type Associated Problems Recent Progress Patient-Stated? 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 8:09 AM KNOTTING MACHINE OPERATOR) No Alisa Jaramillo HEMOGLOBIN A1C < 7.0 Result Component 5.4( 12:00 AM CDT) No Alisa Jaramillo documented as of this encounter Visit Diagnoses Not on filedocumented in this encounter Care Teams Closing Manager Relationship Specialty Start [place] [address] [facility] [address] [place] [address] PCP - General Internal Medicine 03/31/18 05/30/22 [place] [address] [facility] [address] [place] [address] PCP - Attributed-MSSP 07/18/19 10/17/19 Etienne Florez MD Orthopedic Surgery 12/09/14 [place] [address] [address] Oncology 09/15/17 [place] [address] [phone] Neurology 06/26/18 Laz [place] [id number] [place] [address] [address] [place] [address] Cardiovascular Disease 06/26/18 Russell Moran MD [address] [place] [address] Pulmonary Disease 06/26/18 Yuliya Ibarra MD [address] [facility] [address] [place] [address] Endocrinology 06/26/18 Phuong Callejas DPM [address] [place], [place] [id number] Podiatry 06/26/18 Sy Barrientos MD [address] [place] [address] [place] [address] Ophthalmology 06/26/18 Russell Moran MD [address] [place] [address] Pulmonary Disease 06/26/18 Rico Gasca MD [address] [facility] [address] [place] [address] Urology 06/26/18 Elle Landaverde MD [address] [facility] [address], [place] [address] Vascular Surgery 06/26/18 Kirk Truong MD [address] [facility] [address], [place] [address] Gastroenterology 06/26/18 [place] [address] [place] [address] General Surgery 06/26/18 documented as of this encounter
--- OUTSIDE RECORDS SUMMARY | 2024-05-26 12:38 | XMS_ITS | Encounter Summary ---
Author Organization [facility] Address [address] [place] [address] Care Team Providers Care Purchaser [employer] Name Role Phone Etienne Florez MD Unavailable Enrique Gonzalez MD Unavailable [phone] Theresa Camargo MD Primary Care Provider [phone] Nelson Ross MD Unavailable Laz Valencia MD Unavailable Russell Moran MD Unavailable [phone] Yuliya Ibarra MD Unavailable Phuong Callejas DPM Unavailable Sy Barrientos MD Unavailable [phone] Russell Moran MD Unavailable Rico Gasca MD Unavailable [phone] Elle Landaverde MD Unavailable Kirk Truong MD Unavailable Shira Love DO Unavailable [phone] Theresa Camargo MD Unavailable [phone] Reason for Referral * Evaluate (Routine) - Closed Specialty Diagnoses / Procedures Referred By Contac t Referred To Contact Procedures AMB CONSULT [place] [address] [facility] [address] [place] [address] Referral ID Status Reason Start Date Expiration Date Visits Re quested Visits Authorized [id number] Closed 01/25/2020 01/24/2021 1 1 Encounter Details Date Type Department Care Team (Late st Contact Info) Description 01/25/2020 Orders Only [facility] - Family [facility] [id number] [place] [address] [address] [place] [address] [place] [address] [facility] [address] [place] [address] Social History Tobacco Use Types [...] < 140/90 Blood Pressure 127/52(2022 8:09 AM PRISM MEASURER) No Clint Alisa HEMOGLOBIN A1C < 7.0 Result Component 5.4( 12:00 AM CDT) No VilmasarthakAlisa marks documented as of this encounter Visit Diagnoses Not on filedocumented in this encounter Care Teams P[employer]aser [employer] Relationship Specialty Start [place] [address] [place] [address] PCP - General Internal Medicine 03/31/18 05/30/22 [place] [address] [place] [address] PCP - Attributed-MSS 11/17/19 02/16/20 Etienne Florez MD Orthopedic Surgery 12/09/14 [place] [address] [place] [address] Oncology 09/15/17 [place] [address] [facility] [address] [place] [address] Neurology 06/26/18 [place] [address] [facility] [address] [place] [address] Cardiovascular Disease 06/26/18 [place] [address] [facility] [address] [place] [address] Pulmonary Disease 06/26/18 Yuliya Ibarra MD [address] [place] [address] Endocrinology 06/26/18 Phuong Callejas DPM [address] [place] [address] Podiatry 06/26/18 Sy Barrientos MD [address] [place] [address] [place] [address] Ophthalmology 06/26/18 [place] [address] [address] Pulmonary Disease 06/26/18 Rico Gasca MD [address] [facility] [address] [place] [address] Urology 06/26/18 Elle Landaverde MD [address] [facility] [address] [place] [address] Vascular Surgery 06/26/18 Kirk Truong MD [address] [facility] [address] [place] [address] Gastroenterology 06/26/18 [place] [address] [place] [address] General Surgery 06/26/18 documented as of this encounter
--- OUTSIDE RECORDS SUMMARY | 2024-05-26 12:38 | XMS_ITS | Encounter Summary ---
Author Organization [facility] Address [address] [facility] [place] [address] Care Team Providers Care Creeler Name Role Phone Etienne Florez MD Unavailable [phone] Enrique Gonzalez MD Unavailable [phone] Theresa Camargo MD Primary Care Provider Nelson Ross MD Unavailable Laz Valencia MD Unavailable Elie Moran MD Unavailable Yuliya Ibarra MD Unavailable Phuong Callejas DPM Unavailable Sy Barrientos MD Unavailable Elie Moran MD Unavailable [phone] Rico Gasca MD Unavailable Elle Landaverde MD Unavailable Kirk Truong MD Unavailable [phone] Shira Love DO Unavailable [phone] Theresa Camargo MD Unavailable [phone] Reason for Visit * Reason Onset Date Comments LABS ONLY 12/17/2019 Encounter Details Date Type Department Care Team (Late st Contact Info) Description 12/17/2019 Telephone [facility] - Family [facility] [address] [facility] [address] [place] [address] [place] [address] [facility] [address] [place] [address] LABS ONLY Social History Tobacco Use Types Packs/Day Years [...] * Telephone Encounter - Brandi Donis - 12/17/2019 2:56 PM CDT Who is calling? Patient What is the reason for call? Patient called in stating that provider wanted her to check her Calcium again, patient is requesting a lab order to go to [facility] [place] Expected Response from the Clinic? Call back documented in this encounter Plan of Treatment Not on file documented as of this encounter Goals Goal Patient Goal Type Associated Problems Recent Progress Patient-Stated? 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 8:09 AM COP WINDER) No Alisa Jaramillo HEMOGLOBIN A1C < 7.0 Result Component 5.4( 12:00 AM CDT) No Alisa Jaramillo documented as of this encounter Procedures Procedure Name Priority Date/Time Associated Diagnosis Comments PTH INTACT Routine 12/30/2019 11:11 AM CDT Hyperparathyroidism (HCC) Serum calcium elevated BASIC METABOLIC PANEL (CALCIUM TOTAL) Routine 12/30/2019 11:11 AM CDT Hyperparathyroidism (HCC) Serum calcium elevated documented in this encounter Results * (ABNORMAL) PTH INTACT (12/30/2019 11:11 AM CDT) PTH Intact 103(H) 14 - 64 pg/mL [facility] Comment: Interpretive Guide ?Intact PTH ? Calcium ? ------- Normal Parathyroid ?Normal ? Normal Hypoparathyroidism ?Low or Low Normal ?Low Hyperparathyroidism ?? Primary ?Normal or High ? High ?? Secondary ?High ? Normal or Low ?? Tertiary ? High ? High Non-Parathyroid ?? Hypercalcemia ?Low or Low Normal ?High REPORT COMMENT: FASTING:NO Test Performed at: [facility] [facility] [employer] [address] [address] [place], [place] ??[phone] ELIE HAMLIN DO,MPH Blood BLOOD SPECIMEN / Unknown 12/30/2019 11:11 AM CDT 12/30/2019 11:11 AM CDT Theresa Camargo MD LAB - CHEMISTRY ROWAN QUIROZ Performing Organization Address [facility] de Phone Number [facility] [address] [place] [address] * (ABNORMAL) BASIC METABOLIC PANEL (CALCIUM TOTAL) (12/30/2019 11:11 AM CDT) Glucose 191(H) 65 - 139 mg/dL [facility] Comment: ? Non-fasting reference interval BUN 32(H) 7 - 25 mg/dL [facility] Creatinine 1.05(H) 0.60 - 0.88 mg/dL [facility] Comment: For patients >49 years of age, the reference limit for Creatinine is approximately 13% higher for people identified as -Jordanian. eGFR by MDRD 50(L) > OR = 60 mL/min/1. 73m2 [facility] eGFR by MDRD 58(L) > OR = 60 mL/min/1. 73m2 [facility] BUN/Creatinine Ratio 30(H) 6 - 22 (calc) [facility] Sodium 134(L) 135 - 146 mmol/L [facility] Potassium 3.5 3.5 - 5.3 mmol/L [facility] Chloride 92(L) 98 - 110 mmol/L [facility] CO2 31 20 - 32 mmol/L [facility] Calcium 11.3(H) 8.6 - 10.4 mg/dL [facility] Comment: Test Performed at: [employer] [address] [place] [address] ??[id number] ELIE HAMLIN DO,MPH Blood BLOOD SPECIMEN / Unknown 12/30/2019 11:11 AM CDT 12/30/2019 11:11 AM CDT Theresa Camargo MD LAB - CHEMISTRY ROWAN QUIROZ Performing Organization Address [facility] Co de Phone Number [facility] [address] [place] [address] documented in this encounter Visit Diagnoses Diagnosis Hyperparathyroidism (HCC)- Primary Serum calcium elevated Hypercalcemia Primary hypothyroidism Unspecified hypothyroidism documented in this encounter Care Teams Creeler Relationship Specialty Start [place] [address] [place] [address] PCP - General Internal Medicine 03/31/18 05/30/22 [place] [address] [address] [place] [address] PCP - Attributed-MSSP 11/17/19 02/16/20 Etienne Florez MD Orthopedic Surgery 12/09/14 [place] [address] [facility] [address] [place] [address] Oncology 09/15/17 [place] [address] [facility] [address] [place] [address] Neurology 06/26/18 [place] [address] [facility] [address] [place] [address] Cardiovascular Disease 06/26/18 [place] [address] [id number] Pulmonary Disease 06/26/18 Yuliya Ibarra MD [address] [facility] [address] [place] [address] Endocrinology 06/26/18 Phuong Callejas DPM [address] [place], [place] [address] Podiatry 06/26/18 Sy Barrientos MD [facility] [place] [address] Ophthalmology 06/26/18 [place] [address] [address] Pulmonary Disease 06/26/18 Rico Gasca MD [address] [facility] [address] [place] [address] Urology 06/26/18 Elle Landaverde MD [address] [facility] [address] [place] [address] Vascular Surgery 06/26/18 Kirk Truong MD [address] [facility] [address], [place] [address] Gastroenterology 06/26/18 [place] [address] [address] General Surgery 06/26/18 documented as of this encounter
--- OUTSIDE RECORDS SUMMARY | 2024-05-26 12:38 | XMS_ITS | Encounter Summary ---
Author Organization [facility] Address [address] [facility] [place] [address] Care Team Providers Care First Line Supervisor Name Role Phone Etienne Florez MD Unavailable Enrique Gonzalez MD Unavailable [phone] Theresa Camargo MD Primary Care Provider [phone] Nelson Ross MD Unavailable Laz Valencia MD Unavailable Russell Moran MD Unavailable Yuliya Ibarra MD Unavailable [phone] Phuong Callejas DPM Unavailable Sy Barrientos MD Unavailable Russell Moran MD Unavailable Rico Gasca MD Unavailable Elle Landaverde MD Unavailable Kirk Truong MD Unavailable [phone] Shira Love DO Unavailable [phone] Theresa Camargo MD Unavailable [phone] Reason for Visit * Reason Onset Date Comments MEDICATION REFILL 01/31/2020 Encounter Details Date Type Department Care Team (Late st Contact Info) Description 01/31/2020 Refill [facility] Family [facility] [address] [facility] [address] [place] [address] [place] [address] [facility] [address] [place] [address] MEDICATION REFILL Social History Tobacco [...] * Telephone Encounter - Kelly Bashir - 01/31/2020 2:34 PM CDT Requested Prescriptions Pending Prescriptions Disp Refills ??? rosuvastatin (CRESTOR) 10 MG tablet 90 tablet 0 Sig: Take 1 tablet by mouth at bedtime Last OV:11/23/19 Upcoming OV:05/22/19 Last refill:12/09/19 documented in this encounter Plan of Treatment Not on file documented as of this encounter Goals Goal Patient Goal Type Associated Problems Recent Progress Patient-Stated? 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 8:09 AM JOB TRAINER) No Alisa Jaramillo HEMOGLOBIN A1C < 7.0 Result Component 5.4( 12:00 AM CDT) No VilmasarthakAlisa marks documented as of this encounter Visit Diagnoses Not on filedocumented in this encounter Care Teams First Line Supervisor Relationship Specialty [place] [address] [place] [address] PCP - General Internal Medicine 03/31/18 05/30/22 [place] [address] [place] [address] PCP - Attributed-MSSP 11/17/19 02/16/20 Etienne Florez MD Orthopedic Surgery 12/09/14 [place] [address] [place] [address] Oncology 09/15/17 [place] [address] [place] [address] Neurology 06/26/18 [place] [address] [facility] [address] [place] [address] Cardiovascular Disease 06/26/18 [place] [address] [address] Pulmonary Disease 06/26/18 Yuliya Ibarra MD [address] [place] [address] Endocrinology 06/26/18 Phuong Callejas DPM [address] [place] [address] Podiatry 06/26/18 Sy Barrientos MD [address] [place] [address] Ophthalmology 06/26/18 [place] [address] [address] Pulmonary Disease 06/26/18 Rico Gasca MD [address] [facility] [address] [place] [address] Urology 06/26/18 Elle Landaverde MD [address] [facility] [address] [place] [address] Vascular Surgery 06/26/18 Kirk Truong MD [address] [place] [address] Gastroenterology 06/26/18 [place] [address] [place] [phone] General Surgery 06/26/18 documented as of this encounter
--- OUTSIDE RECORDS SUMMARY | 2024-05-26 12:38 | XMS_ITS | Encounter Summary ---
Author Organization [facility] Address [address] [place] [address] Care Team Providers Care Websphere Developer Name Role Phone Etienne Florez MD Unavailable Enrique Gonzalez MD Unavailable Theresa Camargo MD Primary Care Provider Nelson Ross MD Unavailable Laz Valencia MD Unavailable Russell Moran MD Unavailable Yuliya Ibarra MD Unavailable Phuong Callejas DPM Unavailable Sy Barrientos MD Unavailable Russell Moran MD Unavailable Rico Gasca MD Unavailable Elle Landaverde MD Unavailable Kirk Truong MD Unavailable [phone] Shira Love DO Unavailable [phone] Brooke Haynes [facility] Unavailable [phone] Reason for Visit * Reason Onset Date Comments Update 07/12/2019 Encounter Details Date Type Department Care Team (Late st Contact Info) Description 07/12/[address], [address], [place] [address] Laisha Diaz Update Social History Tobacco Use Types Packs/Day [...] encounter Miscellaneous Notes * Telephone Encounter - Hussain Norris MD - 07/12/2019 2:43 PM CST 18Fr catheter, irrigate daily. Check urine culture with next catheter change. Schedule follow-up. thanks DEVELOPER * Telephone Encounter - Laisha Diaz - 07/12/2019 11:32 AM CST Home health called saying the pt's catheter is getting clogged almost everyday. I instructed them to irrigate daily. They state that she leaks around the catheter as well. Is there medication the pt can take to stop this from happening? DEVELOPER documented in this encounter Plan of Treatment Not on file documented as of this encounter Goals Goal Patient Goal Type Associated Problems Recent Progress Patient-Stated? 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 8:09 AM HTML DEVELOPER) No Alisa aJramillo HEMOGLOBIN A1C < 7.0 Result Component 5.4( 12:00 AM CDT) No Alisa Jaramillo documented as of this encounter Visit Diagnoses Not on filedocumented in this encounter Care Teams Websphere Developer Relationship Specialty Start [place] [address] [facility] [address] [place] [address] PCP - General Internal Medicine 03/31/18 05/30/22 Brooke Haynes APRN-DIRECTOR [employer] [address] [facility] [address] [place], [place] [address] PCP - Attributed-MSSP 06/19/19 07/17/19 Etienne Florez MD Orthopedic Surgery 12/09/14 [place] [address] [facility] [address] [place] [address] Oncology 09/15/17 [place] [address] [facility] [address] [place] [address] Neurology 06/26/18 [place] [address] [phone] Cardiovascular Disease 06/26/18 [place] [address] [id number] Pulmonary Disease 06/26/18 Yuliya Ibarra MD [address] [place] [address] Endocrinology 06/26/18 Phuong Callejas DPM [address] [place], [place] [address] Podiatry 06/26/18 Sy Barrientos MD [address] [place] [address] [place] [address] Ophthalmology 06/26/18 [place] [address] [address] Pulmonary Disease 06/26/18 Rico Gasca MD [address] [facility] [address] [place] [address] Urology 06/26/18 Elle Landaverde MD [address] [facility] [address] [place] [address] Vascular Surgery 06/26/18 Kirk Truong MD [address] [facility] [address] [place] [address] Gastroenterology 06/26/18 [place] [address] [place] [address] General Surgery 06/26/18 documented as of this encounter
--- OUTSIDE RECORDS SUMMARY | 2024-05-26 12:38 | XMS_ITS | Encounter Summary ---
Author Organization [facility] Address [address] [place] [address] Care Team Providers Care Magazine Worker Name Role Phone Etienne Florez MD Unavailable Enrique Gonzalez MD Unavailable [phone] Theresa Camargo MD Primary Care Provider [phone] Nelson Ross MD Unavailable Laz Valencia MD Unavailable Russell Moran MD Unavailable Yuliya Ibarra MD Unavailable [phone] Phuong Callejas DPM Unavailable yS Barrientos MD Unavailable Russell Moran MD Unavailable [phone] Rico Gasca MD Unavailable [phone] Elle Landaverde MD Unavailable [phone] Kirk Truong MD Unavailable [phone] Shira Love DO Unavailable [phone] Theresa Camargo MD Unavailable [phone] Reason for Visit * Reason Onset Date Comments Results 08/27/2019 Encounter Details Date Type Department Care Team (Late st Contact Info) Description 08/27/2019 Telephone [facility] - Family Medicine [address] [facility] [address] [place] [address] [place] [address] [facility] [address] [place] [address] Results Social History Tobacco Use [...] Encounter - Bonny Ballesteros RN - 08/30/2019 7:37 AM CDT Orders faxed to [facility] health today * Telephone Encounter - Bonny Ballesteros RN - 08/27/2019 2:58 PM CDT Daughter notified Okay to continue Klor con 40 meq bid RX sent to pharmacy Re check labs in 2 weeks (I will have to call the home nurse back next week, she did not answer) * Telephone Encounter - Dustin Castroa - 08/27/2019 2:33 PM CDT [facility] called to report pt potassium levels of 3.7 documented in this encounter Plan of Treatment Not on file documented as of this encounter Goals Goal Patient Goal Type Associated Problems Recent Progress Patient-Stated? 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 8:09 AM CITY PLANNER) No Alisa Jaramillo HEMOGLOBIN A1C < 7.0 Result Component 5.4( 12:00 AM CDT) No Alisa Jaramillo documented as of this encounter Visit Diagnoses Not on filedocumented in this encounter Care Teams Magazine Worker Relationship Specialty [place] [address] [place], [place] [id number] PCP - General Internal Medicine 03/31/18 05/30/22 [place] [address] [place] [address] PCP - Attributed-MSSP 07/18/19 10/17/19 Etienne Florez MD Orthopedic Surgery 12/09/14 [place] [address] [place] [address] Oncology 09/15/17 [place] [address] [place] [address] Neurology 06/26/18 [place] [address] [facility] [address] [place] [address] Cardiovascular Disease 06/26/18 [place] [address] [address] Pulmonary Disease 06/26/18 Yuliya Ibarra MD [address] [place] [address] Endocrinology 06/26/18 Phuong Callejas DPM [address] [place], [place] [address] Podiatry 06/26/18 Sy Barrientos MD [address] [place] [address] [place] [address] Ophthalmology 06/26/18 [place] [address] [address] Pulmonary Disease 06/26/18 Rico Gasca MD [address] [place] [address] Urology 06/26/18 Elle Landaverde MD [address] [place] [address] Vascular Surgery 06/26/18 Kirk Truong MD [address] [place] [address] Gastroenterology 06/26/18 [place] [address] [place] [address] General Surgery 06/26/18 documented as of this encounter
--- OUTSIDE RECORDS SUMMARY | 2024-05-26 12:38 | XMS_ITS | Encounter Summary ---
Author Organization [facility] Address [address] [facility] [place] [address] Care Team Providers Care Addiction Psychiatrist Name Role Phone Etienne Florez MD Unavailable Enrique Gonzalez MD Unavailable [phone] Theresa Camargo MD Primary Care Provider Nelson Ross MD Unavailable Laz Valencia MD Unavailable Russell Moran MD Unavailable [phone] Yuliya Ibarra MD Unavailable [phone] Phuong Callejas DPM Unavailable Sy Barrientos MD Unavailable Russell Moran MD Unavailable [phone] Rico Gasca MD Unavailable Elle Landaverde MD Unavailable Kirk Truong MD Unavailable Shira Love DO Unavailable [phone] Theresa Camargo MD Unavailable [phone] Encounter Details Date Type Department Care Team (Latest Contact Info) Description 02/08/2020 Travel Social History Tobacco Use Types Packs/Day [...] < 140/90 Blood Pressure 127/52(2022 8:09 AM SOUVENIR AND NOVELTY MAKER) No Alisa Jaramillo HEMOGLOBIN A1C < 7.0 Result Component 5.4( 12:00 AM CDT) No Alisa Jaramillo documented as of this encounter Visit Diagnoses Not on filedocumented in this encounter Care Teams Addiction Psychiatrist Relationship Specialty Start [place] [address] [place] [id number] PCP - General Internal Medicine 03/31/18 05/30/22 [place] [address] [facility] [address] [place] [address] PCP - Attributed-MSSP 11/17/19 02/16/20 Etienne Florez MD Orthopedic Surgery 12/09/14 [place] [address] [facility] [address] [place] [address] Oncology 09/15/17 [place] [address] [facility] [address] [place] [address] Neurology 06/26/18 [place] [address] [facility] [address] [place] [address] Cardiovascular Disease 06/26/18 [place] [address] [id number] Pulmonary Disease 06/26/18 Yuliya Ibarra MD [address] [facility] [address] [place] [address] Endocrinology 06/26/18 Phuong Callejas DPM [address] [place] [address] Podiatry 06/26/18 Sy Barrientos MD [address] [place] [address] [place] [address] Ophthalmology 06/26/18 [place] [address] [facility] [address] [address] Pulmonary Disease 06/26/18 Rico Gasca MD [address] [facility] [address] [place] [address] Urology 06/26/18 Elle Landaverde MD [address] [facility] [address] [place] [address] Vascular Surgery 06/26/18 Kirk Truong MD [address] [facility] [address] [place] [address] Gastroenterology 06/26/18 [place] [address] [place] [address] General Surgery 06/26/18 documented as of this encounter
--- OUTSIDE RECORDS SUMMARY | 2024-05-26 12:38 | XMS_ITS | Encounter Summary ---
Author Organization [facility] Address [address] [facility] [address] [place] [address] Care Team Providers Care Endoscopy Technician Name Role Phone Etienne Florez MD Unavailable Enrique Gonzalez MD Unavailable [phone] Theresa Camargo MD Primary Care Provider Nelson Ross MD Unavailable [phone] Laz Valencia MD Unavailable Russell Moran MD Unavailable [phone] Yuliya Ibarra MD Unavailable Phuong Callejas DPM Unavailable Sy Barrientos MD Unavailable [phone] Russell Moran MD Unavailable Rico Gasca MD Unavailable Elle Landaverde MD Unavailable [phone] Kirk Truong MD Unavailable [phone] Shira Love DO Unavailable [phone] Theresa Camargo MD Unavailable [phone] Reason for Visit * Reason Onset Date Comments MEDICATION REFILL 09/22/2019 Encounter Details Date Type Department Care Team (Late st Contact Info) Description 09/20/2019 Refill [facility] - Family [facility] [address] [facility] [address] [place] [address] [place] [address] [facility] [address] [place] [address] MEDICATION REFILL Social History Tobacco [...] encounter Miscellaneous Notes * Telephone Encounter - Rachel Estrada - 09/20/2019 12:16 PM CDT Pt daughter is requesting an refill on new dosage on her rx. Requested Prescriptions Pending Prescriptions Disp Refills ??? potassium chloride ER (KLOR-CON) 20 MEQ tablet 120 tablet 0 Sig: Take 1 tablet by mouth 4 times daily documented in this encounter Plan of Treatment Not on file documented as of this encounter Goals Goal Patient Goal Type Associated Problems Recent Progress Patient-Stated? 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 8:09 AM CONTRACTING SUPPORT SPECIALIST) No Jared Jaramilloa HEMOGLOBIN A1C < 7.0 Result Component 5.4( 12:00 AM CDT) No Alisa Jaramillo documented as of this encounter Visit Diagnoses Not on filedocumented in this encounter Care Teams Endoscopy Technician Relationship Specialty Start [place] [address] [facility] [address] [place] [address] PCP - General Internal Medicine 03/31/18 05/30/22 [place] [address] [facility] [address] [place] [address] PCP - Attributed-MSSP 07/18/19 10/17/19 Etienne Florez MD Orthopedic Surgery 12/09/14 [place] [address] [phone] Oncology 09/15/17 [place] [address] [facility] [address] [place] [address] Neurology 06/26/18 [place] [address] [phone] Cardiovascular Disease 06/26/18 [place] [address] [phone] Pulmonary Disease 06/26/18 Yuliya Ibarra MD [address] [place] [address] Endocrinology 06/26/18 Phuong Callejas DPM [address] [place], [place] [address] Podiatry 06/26/18 Sy Barrientos MD [address] [place] [address] [place] [address] Ophthalmology 06/26/18 [place] [address] [address] Pulmonary Disease 06/26/18 Rico Gasca MD [address] [facility] [address] [place] [address] Urology 06/26/18 Elle Landaverde MD [address] [facility] [address] [place] [address] Vascular Surgery 06/26/18 Kirk Truong MD [address] [facility] [address] [place] [address] Gastroenterology 06/26/18 [place] [address] [place] [address] General Surgery 06/26/18 documented as of this encounter
--- OUTSIDE RECORDS SUMMARY | 2024-05-26 12:38 | XMS_ITS | Encounter Summary ---
Author Organization [facility] Address [address] [facility] [facility] [place] [place] [address] Care Team Providers Care Meal Room Hand Name Role Phone Etienne Florez MD Unavailable Enrique Gonzalez MD Unavailable [phone] Theresa Camargo MD Primary Care Provider Nelson Ross MD Unavailable [phone] Laz Valencia MD Unavailable Russell Moran MD Unavailable Yuliya Ibarra MD Unavailable Phuong Callejas DPM Unavailable Sy Barrientos MD Unavailable Russell Moran MD Unavailable Rico Gasca MD Unavailable Elle Landaverde MD Unavailable Kirk Truong MD Unavailable Shira Love DO Unavailable [phone] Theresa Camargo MD Unavailable [phone] Encounter Details Date Type Department Care Team (Latest Contact Info) Description 11/29/2019 Travel Social History Tobacco Use Types Packs/Day [...] < 140/90 Blood Pressure 127/52(2022 8:09 [address] CASHIER [address]ING LOT) No Alisa Jaramillo HEMOGLOBIN A1C < 7.0 Result Component 5.4( 12:00 AM CDT) No Alisa Jaramillo documented as of this encounter Visit Diagnoses Not on filedocumented in this encounter Care Teams Meal Room Hand Relationship Specialty Start [place] [address] [place] [id number] PCP - General Internal Medicine 03/31/18 05/30/22 [place] [address] [facility] [address] [place] [address] PCP - Attributed-MSSP 11/17/19 02/16/20 Etienne Florez MD Orthopedic Surgery 12/09/14 [place] [address] [facility] [address] [place] [address] Oncology 09/15/17 [place] [address] [facility] [address] [place] [address] Neurology 06/26/18 [place] [address] [facility] [address] [place] [address] Cardiovascular Disease 06/26/18 [place] [address] [id number] Pulmonary Disease 06/26/18 Yuliya Ibarra MD [address] [facility] [address] [place] [address] Endocrinology 06/26/18 Phuong Callejas DPM [address] [place] [address] Podiatry 06/26/18 Sy Barrientos MD [address] [place] [address] [place] [address] Ophthalmology 06/26/18 [place] [address] [facility] [address] [address] Pulmonary Disease 06/26/18 Rico Gasca MD [address] [facility] [address] [place] [address] Urology 06/26/18 Elle Landaverde MD [address] [facility] [address] [place] [address] Vascular Surgery 06/26/18 Kirk Truong MD [address] [facility] [address] [place] [address] Gastroenterology 06/26/18 [place] [address] [place] [address] General Surgery 06/26/18 documented as of this encounter
--- OUTSIDE RECORDS SUMMARY | 2024-05-26 12:38 | XMS_ITS | Encounter Summary ---
Author Organization [facility] Address [address] [facility] [place] [address] Care Team Providers Care Tag And Label Cutter Name Role Phone Etienne Florez MD Unavailable Enrique Gonzalez MD Unavailable [phone] Theresa Camargo MD Primary Care Provider [phone] Nelson Ross MD Unavailable [phone] Laz Valencia MD Unavailable Russell Moran MD Unavailable Yuliya Ibarra MD Unavailable Phuong Callejas DPM Unavailable Sy Barrientos MD Unavailable Russell Moran MD Unavailable Rico Gasca MD Unavailable Elle Landaverde MD Unavailable Kirk Truong MD Unavailable Shira Love DO Unavailable [phone] Theresa Camargo MD Unavailable [phone] Reason for Visit * Reason Onset Date Comments Question 08/06/2019 Encounter Details Date Type Department Care Team (Late st Contact Info) Description 08/06/2019 Telephone [facility] - Family [facility] [address] [facility] [address] [place] [address] [place] [address] [facility] [address] [place] [address] Question Social History Tobacco Use [...] * Telephone Encounter - Dayanara Singh - 08/06/2019 9:59 AM CDT Patient daughter called asking to fax patient lab order to [phone]. documented in this encounter Plan of Treatment Not on file documented as of this encounter Goals Goal Patient Goal Type Associated Problems Recent Progress Patient-Stated? 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 8:09 AM WIRE BENDER) No Alisa Jaramillo HEMOGLOBIN A1C < 7.0 Result Component 5.4( 1 12:00 AM CDT) No Alisa Jaramillo documented as of this encounter Visit Diagnoses Not on filedocumented in this encounter Care Teams Tag And Label Cutter Relationship Specialty [place] [address] [address] [address] [place] [address] PCP - General Internal Medicine 03/31/18 05/30/22 [place] [address] [facility] [facility] [address] [place] [address] PCP - Attributed-MSSP 07/18/19 10/17/19 Etienne Florez MD Orthopedic Surgery 12/09/14 [place] [address] [facility] [address] [place] [address] Oncology 09/15/17 [place] [address] [facility] 100 [place] [address] Neurology 06/26/18 [place] [address] [facility] [address] [place] [address] Cardiovascular Disease 06/26/18 [place] [address] [id number] Pulmonary Disease 06/26/18 Yuliya Ibarra MD [address] [facility] [address] [place] [address] Endocrinology 06/26/18 Phuong Callejas DPM [address] [place], [place] [address] Podiatry 06/26/18 Sy Barrientos MD [address] [place] [address] Ophthalmology 06/26/18 [place] [address] [phone] Pulmonary Disease 06/26/18 Rico Gasca MD [address] [facility] [address] [place] [address] Urology 06/26/18 Elle Landaverde MD [address] [facility] [address] [place] [address] Vascular Surgery 06/26/18 Kirk Truong MD [address] [facility] [address] [place] [address] Gastroenterology 06/26/18 [place] [address] [address] General Surgery 06/26/18 documented as of this encounter
--- OUTSIDE RECORDS SUMMARY | 2024-05-26 12:38 | XMS_ITS | Encounter Summary ---
Author Organization [facility] Address [address] [place] [address] Care Team Providers Care Laboratory Analyst Name Role Phone Etienne Florez MD Unavailable Enrique Gnozalez MD Unavailable [phone] Theresa Camargo MD Primary Care Provider Nelson Ross MD Unavailable Laz Valencia MD Unavailable Russell Moran MD Unavailable Yuliya Ibarra MD Unavailable Phuong Callejas DPM Unavailable Sy Barrientos MD Unavailable [phone] Russell Moran MD Unavailable Rico Gasca MD Unavailable Elle Landaverde MD Unavailable Kirk Truong MD Unavailable [phone] Shira Love DO Unavailable [phone] Ivy Brooke APRN-FUR POLISHER Unavailable [phone] Encounter Details Date Type Department Care Team (Late st Contact Info) Description 07/16/2019 Orders Only [facility] [id number] [place] [address], [address] [place] [address] Laisha Diaz Urinary tract infection associated with indwelling urethral catheter, subsequent encounter Social History Tobacco Use Types Packs/Day Years [...] < 140/90 Blood Pressure 127/52(2022 8:09 AM BRANCH OFFICE MANAGER) No Alisa Jaramillo HEMOGLOBIN A1C < 7.0 Result Component 5.4( 12:00 AM CDT) No Alisa Jaramillo documented as of this encounter Procedures Procedure Name Priority Date/Time Associated Diagnosis Comments CULTURE URINE Routine 07/13/2019 Urinary tract infection associated with indwelling urethral catheter, subsequent encounter documented in this encounter Results * (ABNORMAL) CULTURE URINE (07/13/2019) Urine URINE SPECIMEN OBTAINED VIA INDWELLING URINARY CATHETER / Unknown 07/13/2019 Narrative OTHER LAB - 07/15/2019 Positive urine culture Hussain Norris MD LAB - MICROBIOLOGY O RDERABLES OTHER LAB documented in this encounter Visit Diagnoses Diagnosis Urinary tract infection associated with indwelling urethral catheter, subsequent encounter- Primary documented in this encounter Care Teams Laboratory Analyst Relationship Specialty [place] [address] [place] [address] PCP - General Internal Medicine 03/31/18 05/30/22 Brooke Haynes APRN-FUR POLISHER [address] [facility] [address] [place] [address] PCP - Attributed-MSSP 06/19/19 07/17/19 Etienne Florez MD Orthopedic Surgery 12/09/14 [place] [address] [facility] [address] [place] [address] Oncology 09/15/17 [place] [address] [facility] [address] [place] [address] Neurology 06/26/18 [place] [address] [facility] [address] [place] [address] Cardiovascular Disease 06/26/18 [place] [address] [address] Pulmonary Disease 06/26/18 Yuliya Ibarra MD [address] [place] [address] Endocrinology 06/26/18 Phuong Callejas DPM [address] [place], [place] [address] Podiatry 06/26/18 Sy Barrientos MD [address] [place] [address] Ophthalmology 06/26/18 [place] [address] [id number] Pulmonary Disease 06/26/18 Rico Gasca MD [address] [place] [address] Urology 06/26/18 Elle Landaverde MD [address] [place] [address] Vascular Surgery 06/26/18 Kirk Truong MD [address] [place] [address] Gastroenterology 06/26/18 [place] [address] [place] [address] General Surgery 06/26/18 documented as of this encounter
--- OUTSIDE RECORDS SUMMARY | 2024-05-26 12:38 | XMS_ITS | Encounter Summary ---
Author Organization [facility] Address [address] [facility] [place] [address] Care Team Providers Care Preparation Plant Repairer Name Role Phone Etienne Florez MD Unavailable Enrique Gonzalez MD Unavailable [phone] Theresa Camargo MD Primary Care Provider [phone] Nelson Ross MD Unavailable Laz Valencia MD Unavailable Russell Moran MD Unavailable [phone] Yuliya Ibarra MD Unavailable Phuong Callejas DPM Unavailable Sy Barrientos MD Unavailable Russell Moran MD Unavailable Rico Gasca MD Unavailable [phone] Elle Landaverde MD Unavailable [phone] Kirk Truong MD Unavailable Shira Love DO Unavailable [phone] Theresa Camargo MD Unavailable [phone] Encounter Details Date Type Department Care Team (Latest Contact Info) Description 09/02/2019 Travel Social History Tobacco Use Types Packs/Day [...] < 140/90 Blood Pressure 127/52(2022 8:09 AM EXPLOSIVE ORDNANCE SPECIALIST) No Alisa Jaramillo HEMOGLOBIN A1C < 7.0 Result Component 5.4( 12:00 AM CDT) No Alisa Jaramillo documented as of this encounter Visit Diagnoses Not on filedocumented in this encounter Care Teams Preparation Plant Repairer Relationship Specialty Start [place] [address] [id number] PCP - General Internal Medicine 03/31/18 05/30/22 [place] [address] [facility] [address] [place] [address] PCP - Attributed-MSSP 07/18/19 10/17/19 Etienne Florez MD Orthopedic Surgery 12/09/14 [place] [address] [facility] [address] [place] [address] Oncology 09/15/17 [place] [address] [facility] [address] [place] [address] Neurology 06/26/18 [place] [address] [facility] [address] [place] [address] Cardiovascular Disease 06/26/18 [place] [address] [id number] Pulmonary Disease 06/26/18 Yuliya Ibarra MD [address] [facility] [address] [place] [address] Endocrinology 06/26/18 Phuong Callejas DPM [address] [place] [address] Podiatry 06/26/18 Sy Barrientos MD [address] [place] [address] [place] [address] Ophthalmology 06/26/18 [place] [address] [facility] [address] [address] Pulmonary Disease 06/26/18 Rico Gasca MD [address] [facility] [address] [place] [address] Urology 06/26/18 Elle Landaverde MD [address] [facility] [address] [place] [address] Vascular Surgery 06/26/18 Kirk Truong MD [address] [facility] [address] [place] [address] Gastroenterology 06/26/18 [place] [address] [place] [address] General Surgery 06/26/18 documented as of this encounter
--- OUTSIDE RECORDS SUMMARY | 2024-05-26 12:38 | XMS_ITS | Encounter Summary ---
Author Organization [facility] Address [address] [place] [address] Care Team Providers Care Pediatric Allergist Name Role Phone Etienne Florez MD Unavailable Enrique Gonzalez MD Unavailable [phone] Theresa Camargo MD Primary Care Provider Nelson Ross MD Unavailable Laz Valencia MD Unavailable Russell Moran MD Unavailable [phone] Yuliya Ibarra MD Unavailable Phuong Callejas DPM Unavailable Sy Barrientos MD Unavailable Russell Moran MD Unavailable Rico Gasca MD Unavailable Elle Landaverde MD Unavailable [phone] Kirk Truong MD Unavailable [phone] Shira Love DO Unavailable [phone] Theresa Camargo MD Unavailable [phone] Encounter Details Date Type Department Care Team (Latest Contact Info) Description 08/09/2019 Travel Social History Tobacco Use Types Packs/Day [...] < 140/90 Blood Pressure 127/52(2022 8:09 AM WASHER MEAT) No Alisa Jaramillo HEMOGLOBIN A1C < 7.0 Result Component 5.4( 12:00 AM CDT) No Alisa Jaramillo documented as of this encounter Visit Diagnoses Not on filedocumented in this encounter Care Teams Pediatric Allergist Relationship Specialty [place] [address] [facility] [address] [place] [address] PCP - General Internal Medicine 03/31/18 05/30/22 [place] [address] [facility] [address] [place] [address] PCP - Attributed-MSSP 07/18/19 10/17/19 Etienne Florez MD Orthopedic Surgery 12/09/14 [place] [address] [phone] Oncology 09/15/17 [place] [address] [phone] Neurology 06/26/18 Laz [place] [id number] [place] [address] [address] [place] [address] Cardiovascular Disease 06/26/18 Russell Moran MD [address] [place] [address] Pulmonary Disease 06/26/18 Yuliya Ibarra MD [address] [facility] [address] [place] [phone] Endocrinology 06/26/18 Phuong Callejas DPM [address] [place], [place] [id number] Podiatry 06/26/18 Sy Barrientos MD [address] [place] [address] [place] [address] Ophthalmology 06/26/18 Russell Moran MD [address] [place] [address] Pulmonary Disease 06/26/18 Rico Gasca MD [address] [address] Urology 06/26/18 Elle Landaverde MD [address] [address] Vascular Surgery 06/26/18 Kirk Truong MD [address] [address] Gastroenterology 06/26/18 [place] [address] [facility] [address] [place] [address] General Surgery 06/26/18 documented as of this encounter
--- OUTSIDE RECORDS SUMMARY | 2024-05-26 12:38 | XMS_ITS | Encounter Summary ---
Author Organization [facility] Address [address] [facility] [place] [address] Care Team Providers Care Office Auditor Name Role Phone Etienne Florez MD Unavailable Enrique Gonzalez MD Unavailable [phone] Theresa Camargo MD Primary Care Provider Nelson Ross MD Unavailable Laz Valencia MD Unavailable Russell Moran MD Unavailable [phone] Yuliya Ibarra MD Unavailable [phone] Phuong Callejas DPM Unavailable Sy Barrientos MD Unavailable Russell Moran MD Unavailable Rico Gasca MD Unavailable Elle Landaverde MD Unavailable Kirk Truong MD Unavailable Shira Love Jason BRADFORD Unavailable [phone] Theresa Camargo MD Unavailable [phone] Reason for Visit * Oncology Prior Authorization (Routine) - Closed Specialty Diagnoses / Procedures Referred By Contandrea t Referred To Contact Diagnoses Malignant neoplasm of upper-outer quadrant of left breast in female, estrogen receptor positive (HCC) Osteopenia of multiple sites Aromatase inhibitor use Procedures ONCOLOGY MEDICATION AUTH COMMUNICATION Enrique Gonzalez MD [address] [place] [phone] [facility] [address] [place] [address] Referral ID Status Reason Start Date Expiration Date Visits Re quested Visits Authorized [id number] Closed 10/29/2017 05/18/2023 1 99 Encounter Details Date Type Department Care Team (Latest Contact Info) Description 11/26/2019 9:24 AM CDT - 11/26/2019 11:59 PM CDT Hospital Encounter Infusion Services at [address] [address] Enrique Gonzalez MD [address] [place] [address] Discharge Disposition: Home or Self Care [...] mouth once daily 06/18/2018 03/30/2020 nystatin (MYCOSTATIN) 660969 UNIT/GM powder Apply to affected area 2 [...] Progress Notes * Gail Sol RN - 11/26/2019 11:00 AM CDT Perla Leon 1940 11/26/2019 Patient completed scheduled prolia at [facility]. Only complaint is weakness with frequent falls (once every few weeks). 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 Her balance and gait become suddenly off or her knee gives out and makes her fall. She does use a walker at home. Her is always at home with her and will call their children to come help pick her up if needed. She does feel safe at home and has assistive devices that help her as much as possible. Medications given on 11/26/2019 MEDICATIONS FOR CURRENT ENCOUNTER: ?? SCHEDULED MEDICATIONS: ?? [COMPLETED] denosumab (PROLIA) SC injection SOLN 60 mg, Subcutaneous, Once ?? CONTINUOUS MEDICATIONS: ?? No current facility-administered medications for this encounter. ?? PRN MEDICATIONS: ?? No current facility-administered medications for this encounter. documented in this encounter Plan of Treatment Not on file documented as of this encounter Goals Goal Patient Goal Type Associated Problems Recent Progress Patient-Stated? 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 8:09 AM OYSTER GROWER) No Alisa Jaramillo HEMOGLOBIN A1C < [...] 60 mg, Subcutaneous, ONCE, 1 dose, On Fri11/26/19 at 1030 $ Given 11/26/2019 10:22 AM CDT 60 mg Abdominal Tissue documented in this encounter Care Teams Office Auditor Relationship Specialty [place] [address] [place] [address] PCP - General Internal Medicine 03/31/18 05/30/22 [place] [address] [address] [place] [address] PCP - Attributed-MSSP 11/17/19 02/16/20 Etienne Florez MD Orthopedic Surgery 12/09/14 [place] [address] [facility] [address] [place] [address] Oncology 09/15/17 [place] [address] [facility] [address] [place] [address] Neurology 06/26/18 [place] [address] [facility] [address] [place] [address] Cardiovascular Disease 06/26/18 [place] [address] [facility] [address] [place] [address] Pulmonary Disease 06/26/18 Yuliya Ibarra MD [address] [facility] [address] [place] [phone] Endocrinology 06/26/18 Phuong Callejas DPM [address] [place] [address] Podiatry 06/26/18 Sy Barrientos MD [address] [place] [address] [place] [address] Ophthalmology 06/26/18 [place] [address] [address] Pulmonary Disease 06/26/18 Rico Gasca MD [address] [address] Urology 06/26/18 Elle Landaverde MD [address] [address] Vascular Surgery 06/26/18 Kirk Truong MD [address] [address] Gastroenterology 06/26/18 [place] [address] [facility] [address] [place] [address] General Surgery 06/26/18 documented as of this encounter
--- OUTSIDE RECORDS SUMMARY | 2024-05-26 12:38 | XMS_ITS | Encounter Summary ---
Author Organization [facility] Address [address] [facility] [place] [address] Care Team Providers Care Historiographer Name Role Phone Etienne Florez MD Unavailable [phone] Enrique Gonzalez MD Unavailable [phone] Theresa Camargo MD Primary Care Provider [phone] Nelson Ross MD Unavailable [phone] Laz Valencia MD Unavailable Russell Moran MD Unavailable [phone] Yuliya Ibarra MD Unavailable Phuong Callejas DPM Unavailable Sy Barrientos MD Unavailable Russell Moran MD Unavailable [phone] Rico Gasca MD Unavailable Elle Landaverde MD Unavailable [phone] Kirk Truong MD Unavailable [phone] Shira Love DO Unavailable [phone] Theresa Camargo MD Unavailable [phone] Reason for Visit * Reason Onset Date Comments Question 08/02/2019 Encounter Details Date Type Department Care Team (Late st Contact Info) Description 08/02/2019 Telephone [facility] - Family Medicine [address] [facility] [address] [place] [address] [place] [address] [facility] [address] [place] [address] Question Social History Tobacco Use [...] encounter Miscellaneous Notes * Telephone Encounter - Wanda Castro - 08/02/2019 2:58 PM CDT Read daughter BRIM MOLDER note. Daughter states she has to check records because she is sure mom has had labs drawn since February. Daughter states she will call back * Telephone Encounter - Asha Narvaez APRN-SARA - 08/02/2019 1:53 PM CDT She should have her potassium level checked before proceeding with taking the potassium. Her level has not been checked since February. It can be dangerous to have too much potassium. I have entered an order. Please have her stop by any [facility] to have this done. * Telephone Encounter - Wanda Castro - 08/02/2019 11:09 AM CDT Pts daughter state that pt was hospitalized in February last year and was instructed to increase herpotassium dosage. States pt now takes 4 pills with breakfast as well as 4 pills with dinner . Requesting new script be sent to the pharmacy with updated sig Requested Prescriptions Pending Prescriptions Disp Refills ??? potassium chloride ER (KLOR-CON) 10 MEQ tablet 240 tablet 3 Sig: TAKE 4 TABLETS WITH BREAKFAST AND 4 TABLETS WITH DINNER Last OV: 04/13/19 Upcomings OV: 07/3119 Last Refill: 03/16/19 documented in this encounter Plan of Treatment Scheduled Orders Name Type Priority Associated Diagnoses Orde r Schedule BASIC METABOLIC PANEL (BMP) Lab Routine Hypokalemia Ordered: 08/02/2019 documented as of this encounter Goals Goal Patient Goal Type Associated Problems Recent Progress Patient-Stated? 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 8:09 AM INSTALLATION AND REPAIR TECHNICIAN) No Alisa Jaramillo HEMOGLOBIN A1C < 7.0 Result Component 5.4( 12:00 AM CDT) No Alisa Jaramillo documented as of this encounter Visit Diagnoses Diagnosis Hypokalemia- Primary Hypopotassemia documented in this encounter Care Teams Historiographer Relationship Specialty [place] [address] [place] [address] PCP - General Internal Medicine 03/31/18 05/30/22 [place] [address] [place] [address] PCP - Attributed-MSSP 3/1/20 5/31/20 Etienne Florez MD Orthopedic Surgery 12/09/14 [place] [address] [facility] [address] [place] [address] Oncology 09/15/17 [place] [address] [facility] [address] [place] [address] Neurology 06/26/18 [place] [address] [facility] [address] [place] [address] Cardiovascular Disease 06/26/18 Russell Moran MD [address] [place] [address] Pulmonary Disease 06/26/18 Yuliya Ibarra MD [address] [facility] [address] [place] [phone] Endocrinology 06/26/18 Phuong Callejas DPM [address] [place] [address] Podiatry 06/26/18 Sy Barrientos MD [address] [place] [address] [place] [address] Ophthalmology 06/26/18 Russell [place] [address] [place] [address] Pulmonary Disease 06/26/18 Rico Gasca MD [address] [address] Urology 06/26/18 Elle Landaverde MD [address] [address] Vascular Surgery 06/26/18 Kirk Truong MD [address] [address] Gastroenterology 06/26/18 [place] [address] [place] [address] General Surgery 06/26/18 documented as of this encounter
--- OUTSIDE RECORDS SUMMARY | 2024-05-26 12:38 | XMS_ITS | Encounter Summary ---
Author Organization [facility] Address [address] [place] [address] Care Team Providers Care Wheat Cleaner Name Role Phone Etienne Florez MD Unavailable Enrique Gonzalez MD Unavailable [phone] Theresa Camargo MD Primary Care Provider Nelson Ross MD Unavailable Laz Valencia MD Unavailable Russell Moran MD Unavailable [phone] Yuliya Ibarra MD Unavailable Phuong Callejas DPM Unavailable Sy Barrientos MD Unavailable [phone] Russell Moran MD Unavailable [phone] Rico Gasca MD Unavailable [phone] Elle Landaverde MD Unavailable [phone] Kirk Truong MD Unavailable Shira Love Unavailable [phone] Theresa Camargo MD Unavailable [phone] Reason for Visit * Reason Comments Follow-up Encounter Details Date Type Department Care Team (Late st Contact Info) Description 11/26/2019 10:40 AM CDT Office Visit [facility] [address] [place] [address] [place] [address] [address] Malignant neoplasm of upper-outer quadrant of left breast in female, estrogen receptor positive (HCC) (Primary Dx); Osteopenia of multiple sites; Use of aromatase inhibitors; Class 2 obesity with body mass index (BMI) of 35.0 to 35.9 in adult, unspecified obesity type, unspecified whether serious comorbidity present; Osteopenia of neck of femur, unspecified laterality; Sleep apnea, unspecified type Social History Tobacco Use Types Packs/Day Years [...] Sign Reading Time Taken Comments Blood Pressure 130/51 11/26/2019 9:55 AM CDT Pulse 73 11/26/2019 9:55 AM CDT Temperature 36.4 ??C (97.6 ??F) 11/26/2019 9:55 AM CD T Respiratory Rate 20 11/26/2019 9:55 AM CDT Oxygen Saturation 96% 11/26/2019 9:55 AM CDT Inhaled Oxygen Concentration - - Weight 81.6 kg (180 lb) 11/26/2019 9:55 AM CDT Height 165.1 cm (5' 5 ) 11/26/2019 9:55 AM CDT Body Mass Index 29.95 11/26/2019 9:55 AM CDT documented in this encounter Functional [...] * Patient Instructions* Enrique Gonzalez MD - 11/26/2019 10:17 AM CDT Prolia today RTC in 6 months documented in this encounter Progress Notes * Enrique Gonzalez MD - 11/26/2019 9:28 AM CDT Oncology Clinic Follow Up Note Date of Follow Up: 11/26/2019 Patient Name:??Perla Leon??is a 78??y.o. Female ??= 1940 ? Surgeon:?Dr Shira Love? PCP: Jarrell Garrison MD ? 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 Arimidex 1 mg po daily started on 09/17/17 Prolia 60 mg SQ Q 6 months started??on 01/14/18 ? HPI: Perla Leon??is an 78??y.o.?? woman with history of TIA, atrial fib, DM, heart murmur, partal seizures, famlial spastic paraparesis and obesity, diagnosed with left breast cancer in August 2017 and is currently on Arimidex came today for follow up. She??initially underwent routine screening mammogram on 07/02/17 [...] tolerating it well. Her last mammogram was 09/14/18 and was benign. DEXA in 10/2017 showed osteopenia for which she has been on calcium and Vit D supplement and was started Prolia on 01/14/18. She has not had her screening mammogram due to COVID-19 pendemic. She plans to reschedule it in thenext several weeks. Her serum calcium level is elevated due to hyperparathyroidism. She also has hypothyroidism and is following with an civil engineering teacher at [facility]. No other new complaints. Medical History Past [...] HPI. ECOG 3 PS Physical Exam BP 130/51 (BP SITE: LEFT ARM, BP POSITION: SITTING, BP CUFF SIZE: 11) Pulse 73 Temp 97.6 ??F (36.4 ??C) (Temporal) Resp 20 Ht 5' 5 (1.651 m) Wt 180 lb (81.6 kg) SpO2 96% BMI 29.95 kg/m2 GENERAL: Wheel chair bound, in no [...] x 3. Labs Recent Labs Component Name 03/05/19 1301 11/06/18 1043 12/09/17 1545 WBC 7.0 7.2 7.5 HGB 12.6 11.2* 11.0* HCT 41.0 38.2 36.4 PLTCOUNT 319 327 326 Component Latest Ref Rng & Units 02/26/2019 11/06/2018 08/21/2018 Glucose 70 - 105 mg/dL 150 (H) 82 147 (H) BUN 9.8 - 20.1 mg/dL 17 18 13 Creatinine 0.57 - 1.11 mg/dL 0.82 0.66 0.71 eGFR by MDRD mL/min/1.73m2 >60 >60 >60 eGFR by MDRD mL/min/1.73m2 >60 >60 >60 Sodium 136 - 145 mmol/L 142 144 142 Potassium 3.5 - 5.1 mmol/L 3.4 (L) 3.6 3.8 Chloride 98 - 107 mmol/L 102 105 110 (H) CO2 23 - 31 mmol/L 34 (H) 30 27 Calcium 8.4 - 10.2 mg/dL 10.6 (H) 10.5 (H) 10.0 Protein Total 6.4 - 8.3 gm/dL 6.1 (L) Albumin 3.2 - 4.6 gm/dL 3.9 Bilirubin Total 0.2 - 1.0 mg/dL 0.2 Alkaline Phosphatase 40 - 150 U/L 75 AST 5 - 34 U/L 15 ALT 13 - 61 U/L 16 Anion Gap 8 - 16 mmol/L 6 (L) 5 (L) Assessment & Plan ? 1. Malignant neoplasm of upper-outer quadrant of left breast in female, ER+, HER2 negative, Stage IA ??- Arimidex started on 09/17/17 and has been tolerated well - Self breast exam - Mammogram 08/2018 was benign, plans to get another one in the next several weeks. It was postponeddue to there COVID19 pandemic. ? 2. Obesity ? 3. Osteopenia: on Prolia Q 6 months. Her serum calcium is 11.3 today which is elevated. Her recent PTH was also elevated consistent is hyperparathyroidism. She is advised to hold calcium supplement and is following was civil engineering teacher at [facility]. 4. ECOG 3 Poor Functional status ? 5. Family history of breast cancer : genetic testing sent in the past ? 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 RTC in 6 months for follow up with labs Enrique Gonzalez MD 11/26/2019 10:58 AM documented in this encounter Plan of Treatment Not on file documented as of this encounter Goals Goal Patient Goal Type Associated Problems Recent Progress Patient-Stated? 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 8:09 AM PULP MACHINE OPERATOR) No Alisa Jaramillo HEMOGLOBIN A1C < 7.0 Result Component 5.4( 12:00 AM CDT) No Alisa Jaramillo documented as of this encounter Results * (ABNORMAL) COMPREHENSIVE METABOLIC [...] - 10.4 mg/dL 11/26/2019 10:12 AM CDT [facility] Anion Gap 10 8 - 16 mmol/L 11/26/2019 10:12 AM CDT [facility] BUN 26(H) 9.8 - 20.1 mg/dL 11/26/2019 10:12 AM CDT [facility] Creatinine 1.00 0.57 - 1.11 mg/dL 11/26/2019 10:12 AM CDT [facility] Alkaline Phosphatase 93 40 - 150 U/L 11/26/2019 10:12 AM CDT [facility] ALT 22 0 - 61 U/L 11/26/2019 10:12 AM CDT [facility] AST 17 5 - 34 U/L 11/26/2019 10:12 AM CDT [facility] Protein Total 7.0 6.4 - 8.3 gm/dL 11/26/2019 10:12 AM CDT [facility] Albumin 4.0 3.2 - 4.6 gm/dL 11/26/2019 10:12 AM CDT [facility] Bilirubin Total 0.3 0.2 - 1.0 mg/dL 11/26/2019 10:12 AM CDT [facility] eGFR by MDRD 53 mL/min/1.7 3m2 11/26/2019 10:12 AM CDT [facility] eGFR by MDRD >60 mL/min/1.7 3m2 11/26/2019 10:12 AM CDT [facility] Blood BLOOD SPECIMEN / Unknown Venipuncture / Unknown 11/26/2019 9:45 AM CDT 11/26/2019 9:52 AM CDT Enrique Gonzalez MD LAB - CHEMISTRY ROWAN QUIROZ [facility] Organization Address City/State/ZIP Co de Phone Number [facility] [address] [place] [address] documented in this encounter Visit Diagnoses Diagnosis Malignant neoplasm of upper-outer quadrant of left breast in female, estrogen receptor positive (HCC)- Primary Osteopenia of neck of femur, unspecified laterality Use of aromatase inhibitors Class 2 obesity with body mass index (BMI) of 35.0 to 35.9 in adult, unspecified obesity type, unspecified whether serious comorbidity present Sleep apnea, unspecified type documented in this encounter Care Teams Wheat Cleaner Relationship Specialty [place] [address] [place] [address] PCP - General Internal Medicine 03/31/18 05/30/22 [place] [address] [place] [address] PCP - Attributed-MSSP 11/17/19 02/16/20 Etienne Florez MD Orthopedic Surgery 12/09/14 [place] [address] [place] [phone] Oncology 09/15/17 [place] [address] [place] [address] Neurology 06/26/18 [place] [address] [facility] [address] [place] [address] Cardiovascular Disease 06/26/18 [place] [address] [id number] Pulmonary Disease 06/26/18 Yuliya Ibarra MD [address] [facility] [address] [place] [phone] Endocrinology 06/26/18 Phuong Callejas DPM [address] [place], [place] [phone] Podiatry 06/26/18 Sy Barrientos MD [facility] [place] [place] [address] Ophthalmology 06/26/18 [place] [address] [place] [address] [place] [address] Pulmonary Disease 06/26/18 Rico Gasca MD [address] [place] [address] Urology 06/26/18 Elle Landaverde MD [address] [place] [address] Vascular Surgery 06/26/18 Kirk Truong MD [address] [place] [address] Gastroenterology 06/26/18 [place] [address] [address] [facility] [place] [id number] General Surgery 06/26/18 documented as of this encounter
--- OUTSIDE RECORDS SUMMARY | 2024-05-26 12:38 | XMS_ITS | Encounter Summary ---
Author Organization [facility] Address [address] [place] [address] Care Team Providers Care Director Water And Waste Services Name Role Phone Etienne Florez MD Unavailable Enrique Gonzalez MD Unavailable [phone] Theresa Camargo MD Primary Care Provider Nelson Ross MD Unavailable Laz Valencia MD Unavailable Russell Moran MD Unavailable Yuliya Ibarra MD Unavailable Phuong Callejas DPM Unavailable Sy Barrientos MD Unavailable [phone] Russell Moran MD Unavailable Rico Gasca MD Unavailable [phone] Elle Landaverde MD Unavailable [phone] Kirk Truong MD Unavailable [phone] Shira Love DO Unavailable [phone] Theresa Camargo MD Unavailable [phone] Reason for Visit * Reason Comments UTI Encounter Details Date Type Department Care Team (Late st Contact Info) Description 07/21/2019 9:40 AM TOURING PRODUCTION MANAGER Office Visit [facility] [id number] [place] [address], [address] [place] [address] Hussain Norris MD [address] [place] [address] DR KRUGER [address] [place] [address] Recurrent UTI (Primary Dx); Lower urinary tract symptoms (LUTS); CON (stress urinary incontinence, female) Social History [...] - Inhaled Oxygen Concentration - - Weight 78 kg (172 lb) 07/21/2019 9:55 AM TOURING PRODUCTION MANAGER Height 165.1 cm (5' 5 ) 07/21/2019 9:55 AM TOURING PRODUCTION MANAGER Body Mass Index 28.62 07/21/2019 9:55 AM TOURING PRODUCTION MANAGER documented in this encounter Functional Status Functional [...] Progress Notes * Hussain Norris MD - 07/21/2019 9:40 AM CST Images from the original note were not included. [facility] Urologic Surgery Established Patient Note Encounter Date: 07/21/2019 Patient Name: Perla Leon Referring Provider: Theresa Camargo MD Chief Complaint: Chief Complaint Patient presents with ??? UTI History of Present Illness: Ms. Leon is a 78 year old female here for follow-up for urinary incontinence, incomplete emptyingof bladder. Chronic issue. She followed with Dr. Gasca then transferred care here in 03/2019. Catheter placed at that time for incontinence, quality of life. She has now had [address] 04/2019 showed cystitis. Home health changes catheter every 3 weeks but she still having issues with sediment and clogging. They have come out to flush it but does not sound like they are aspirating. Denies any hematuria, fevers, chills, pain, nausea, [...] Not on file Occupational History ??? 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 Smoking status: [...] Onset ??? Cancer - Breast Mother ??? Coronary Artery Disease Father CHF ??? Coronary Artery Disease Brother CHF Medications: Outpatient Encounter Medications as of 07/21/2019 Medication Sig Dispense Refill ??? albuterol HFA (PROAIR HFA) 108 (90 BASE) MCG/ACT inhaler Take 2 Puffs by mouth every 4 hours asneeded. ??? amitriptyline (ELAVIL) 25 MG tablet TAKE 2 TABLETS AT BEDTIME 180 tablet 4 ??? anastrozole (ARIMIDEX) 1 MG tablet TAKE 1 TABLET DAILY FOR 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 90 tablet 4 ??? anastrozole (ARIMIDEX) 1 MG [...] by mouth once daily ??? nystatin (MYCOSTATIN) 531936 UNIT/GM powder Apply to affected area 2 times daily 60 g 0 ??? polyethyl glycol-propyl glycol (SYSTANE) 0.4-0.3 % ophth solution Instill 1 drop into both eyesonce as needed ??? polyethylene glycol 3350 (MIRALAX) packet Take 17 g by mouth once daily ??? potassium chloride ER (KLOR-CON) 10 MEQ tablet TAKE 4 TABLETS WITH BREAKFAST 360 tablet 1 ??? PROLENSA 0.07 % opthalmic solution PUT 1 DROP INTO RIGHT EYE TWICE A DAY 2 ??? rosuvastatin (CRESTOR) 10 MG tablet TAKE 1 TABLET AT BEDTIME 90 tablet 3 ??? sitaGLIPtin (JANUVIA) 50 MG tablet Take 100 mg by mouth once daily ??? spironolactone (ALDACTONE) 25 MG tablet Take 25 mg by mouth once daily ??? sulfamethoxazole-trimethoprim (BACTRIM DS; SEPTRA DS) 800-160 MG tablet Take 1 tablet by mouth 2 times daily 14 tablet 0 ??? verapamil SR 24hr (VERELAN) 240 MG capsule Take 240 mg by mouth once daily ??? Water For Irrigation, Sterile 60 mL by Irrigation route once daily as needed (catheter not draining) 500 mL 3 No facility-administered encounter medications on file as of 07/21/2019. Allergies: Allergies Allergen Reactions ??? Advair Diskus [...] Ht 1.651 m (5' 5 ) Wt 78 kg (172 lb) BMI 28.62 kg/m2 Body mass index is 28.62 kg/m??. Physical Examination: General: Alert, oriented to person, place, situation. No distress. White female, obese HEENT: Normocephalic, atraumatic. Extraocular muscles intact, no scleral icterus. Normal conjunctiva. No lip cyanosis. Neck: Midline trachea, no obvious masses Cardiovascular: regular rate, No digital clubbing or lower extremity edema Respiratory: Non-labored respirations. Normal rate without recruitment of accessory respiratory muscles. Comfortable, symmetric respiratory effort . : 22Fr olivas draining clear yellow urine Hematological/Immunological: no echymosis, no bleeding gums and no jaundice Skin: Normal coloration and turgor. No jaundice. No visible lesions, rashes, ulcers MSK: Wheelchair-bound Neurological: Weakness throughout Psychiatric: appropriate insight. AOx3. Normal mood and affect Laboratory: Recent Labs Component Name 03/05/19 1301 03/05/19 1300 02/26/19 1027 11/06/18 1043 12/09/17 1545 06/12/17 0823 WBC 7.0 - - 7.2 - 7.5 - 8.2 RBC 4.69 - - 4.59 - 4.75 - 4.91 HGB 12.6 - - 11.2* - 11.0* - 11.2* HCT 41.0 - - 38.2 - 36.4 - 37.2 MCV 87.4 - - 83.2 - 77* - 75.8* PLTCOUNT 319 - - 327 - 326 - 425* SODIUM - 141 142 144 - - - 141 POTASSIUM - 3.1* 3.4* 3.6 - - - 3.5 CHLORIDE - 102 102 105 - - - 102 CO2 - 28 34* 30 - - - 31 BUN - 14 17 18 - - - 15 CREATININE - 0.81 0.82 0.66 - - - 0.92 GLUCOSE - 195* 150* 82 - - - 90 CALCIUM - 10.4* 10.6* 10.5* - - - 10.4 ALBUMIN - 3.9 - 3.9 - - - 4.2 ALKPHOS - 95 - 75 - - - 90 ALT - 20 - 16 - - - 21 AST - 17 - 15 - - - 17 TBIL - 0.3 - 0.2 - - - 0.4 TPROT - 6.2* - 6.1* - - - 6.6 - = values in this interval not displayed. No results found for this visit on 07/21/19. Imaging: No results found. Assessment/Plan: Problem Recurrent Uti 03/2019 olivas catheter placed for incomplete emptying and overflow incontinence 04/[address] with cystitis 06/2019 proteus Lower Urinary Tract Symptoms (Luts) 11/2018 on myrbetriq 25mg (Dr. Gasca) with some improvement. Had confusion with 50mg? 03/24/19 PVR 304mL. Olivas placed for incontinence, quality of life. Stop myrbetriq. Urinary incontinence, stress, overflow, and functional Incomplete emptying of bladder -continue olivas catheter and will change every 3 weeks (home health ?) to limit obstruction from sediment. Irrigate and aspirate as needed. Instructed on how to do so today. Urine was very clear today. She already drinks plenty of fluids. Discussed importance of hygiene to prevent infection. Also discussed she will likely have an occasional infection given the chronic indwelling catheter in consultation. Would not check a urine culture unless she has true symptoms. If checking culture, change catheter first -RTC 2 months. Consider suppressive antibiotics if still having issues. Hussain Norris MD [facility] Office [phone] Exchange [phone] ING PRODUCTION MANAGER documented in this encounter Plan of Treatment Not on file documented as of this encounter Goals Goal Patient Goal Type Associated Problems Recent Progress Patient-Stated? 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 8:09 AM TOURING PRODUCTION MANAGER) No Alisa Jaramillo HEMOGLOBIN A1C < 7.0 Result Component 5.4( 12:00 AM CDT) No Alisa Jaramillo documented as of this encounter Visit Diagnoses Diagnosis Recurrent UTI- Primary Urinary tract infection, site not specified Lower urinary tract symptoms (LUTS) Other symptoms involving urinary system CON (stress urinary incontinence, female) Female stress incontinence * Assessment & Plan Note - Hussain Norris MD - 07/20/2019 8:50 PM CSTAssociated Problem(s): Urinary tract infection associated with indwelling urethral catheter (HCC) (Resolved 05/30/2022) - ING PRODUCTION MANAGER * Assessment & Plan Note - Hussain Norris MD - 07/20/2019 8:50 PM CSTAssociated Problem(s): Lower urinary tract symptoms (LUTS) (Resolved 11/23/2019) - ING PRODUCTION MANAGER documented in this encounter Care Teams Director Water And Waste Services Relationship Specialty [place] [address] [place] [address] PCP - General Internal Medicine 03/31/18 05/30/22 [place] [address] [place] [address] PCP - Attributed-MSSP 07/18/19 10/17/19 Etienne Florez MD Orthopedic Surgery 12/09/14 [place] [address] [place] [address] Oncology 09/15/17 [place] [address] [address] [place] [address] Neurology 06/26/18 [place] [address] [facility] [address] [place] [address] Cardiovascular Disease 06/26/18 [place] [address] [address] Pulmonary Disease 06/26/18 Yuliya Ibarra MD [address] [facility] [address], [place] [address] Endocrinology 06/26/18 Phuong Callejas DPM [address] [place] [address] Podiatry 06/26/18 Sy Barrientos MD [address] [place] [address] [place] [address] Ophthalmology 06/26/18 [place] [address] [id number] Pulmonary Disease 06/26/18 Rico Gasca MD [address] [address] Urology 06/26/18 Elle Landaverde MD [address] [address] Vascular Surgery 06/26/18 Kirk Truong MD [address] [address] Gastroenterology 06/26/18 [place] [address] [address] [place] [address] General Surgery 06/26/18 documented as of this encounter
--- OUTSIDE RECORDS SUMMARY | 2024-05-26 12:39 | XMS_ITS | Encounter Summary ---
Author Organization [facility] Address [address] [facility] [place] [address] Care Team Providers Care Manager Of Patient Name Role Phone Etienne Florez MD Unavailable Enrique Gonzalez MD Unavailable [phone] Theresa Camargo MD Primary Care Provider Nelson Ross MD Unavailable Laz Valencia MD Unavailable Russell Moran MD Unavailable Yuliya Ibarra MD Unavailable Phuong Callejas DPM Unavailable Sy Barrientos MD Unavailable Russell Moran MD Unavailable [phone] Rico Gasca MD Unavailable [phone] Elle Landaverde MD Unavailable [phone] Kirk Truong MD Unavailable [phone] Shira Love DO Unavailable [phone] Reason for Visit * Reason Onset Date Comments Home Health 04/09/2019 Encounter Details Date Type Department Care Team (Late st Contact Info) Description 04/09/2019 Telephone [facility] - Family Medicine [address] [place] [address] [place] [address] [place] [address] Home Health Social History Tobacco [...] Telephone Encounter - Bonny Ballesteros RN - 04/12/2019 4:30 PM CST Nurse notified LE NEEDLE OPERATOR LOCKSTITCH * Telephone Encounter - Bonny Ballesteros RN - 04/09/2019 3:22 PM CST LM for nurse to call back LE NEEDLE OPERATOR LOCKSTITCH * Telephone Encounter - Bonny Ballesteros RN - 04/09/2019 3:20 PM CST Yes but will need a hospital follow up in 1-2 weeks Ok for BUILDING REPAIR MAINTENANCE SUPERVISOR per Dr. Camargo LE NEEDLE OPERATOR LOCKSTITCH * Telephone Encounter - Wanda Castro - 04/09/2019 2:33 PM CST Wants to know will PCP follow pt for home care LE NEEDLE OPERATOR LOCKSTITCH documented in this encounter Plan of Treatment Not on file documented as of this encounter Goals Goal Patient Goal Type Associated Problems Recent Progress Patient-Stated? 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 8:09 AM DOUBLE NEEDLE OPERATOR LOCKSTITCH) No Alisa Jaramillo HEMOGLOBIN A1C < 7.0 Result Component 5.4( 12:00 AM CDT) No Alisa Jaramillo documented as of this encounter Visit Diagnoses Not on filedocumented in this encounter Care Teams Manager Of Patient Relationship Specialty [place] [address] [place], [place] [address] PCP - General Internal Medicine 03/31/18 05/30/22 Etienne Florez MD Orthopedic Surgery 12/09/14 [place] [address] [facility] [address] [place] [address] Oncology 09/15/17 [place] [address] [facility] [address] [place] [address] Neurology 06/26/18 [place] [address] [facility] [address] [place] [address] Cardiovascular Disease 06/26/18 [place] [address] [address] Pulmonary Disease 06/26/18 Yuliya Ibarra MD [address] [place] [address] Endocrinology 06/26/18 Phuong Callejas DPM [address] [place], [place] [address] Podiatry 06/26/18 Sy Barrientos MD [address] [place] [address] [place] [address] Ophthalmology 06/26/18 Russell Moran MD [address] [place] [address] Pulmonary Disease 06/26/18 Rico Gasca MD [address] [place] [address] Urology 06/26/18 Elle Landaverde MD [address] [facility] [address] [place] [address] Vascular Surgery 06/26/18 Kirk Truong MD [address] [place] [address] Gastroenterology 06/26/18 [place] [address] [place] [address] General Surgery 06/26/18 documented as of this encounter
--- OUTSIDE RECORDS SUMMARY | 2024-05-26 12:39 | XMS_ITS | Encounter Summary ---
Author Organization [facility] Address [address] [place] [address] Care Team Providers Care Medical Staff Services Manager Name Role Phone Etienne Florez MD Unavailable Enrique Gonzalez MD Unavailable [phone] Theresa Camargo MD Primary Care Provider Nelson Ross MD Unavailable [phone] Laz Valencia MD Unavailable Russell Moran MD Unavailable Yuliya Ibarra MD Unavailable Phuong Callejas DPM Unavailable [phone] Sy Barrientos MD Unavailable [phone] Russell Moran MD Unavailable Rico Gasca MD Unavailable [phone] Elle Landaverde MD Unavailable Kirk Truong MD Unavailable Shira Love DO Unavailable [phone] Reason for Visit * Reason Onset Date Comments Update 03/05/2019 Results 03/05/2019 Encounter Details Date Type Department Care Team (Late st Contact Info) Description 03/05/2019 Telephone [facility] [address] [facility] [address] [place] [address] [place] [address] [facility] [address] [place] [address] Update; Results Social History Tobacco Use Types Packs/Day [...] Telephone Encounter - Bonny Ballesteros RN - 03/15/2019 8:41 AM CDT Spoke with daughter Dose confirmed * Telephone Encounter - Bonny Ballesteros RN - 03/15/2019 8:24 AM CDT LM for daughter to call the office back ? What concerns does she have on the calcium Patient is to take 1200 mg of calcium per day and 2000 units of VIt D If it is easier they can separate the two * Telephone Encounter - Wanda Castro - 03/12/2019 1:47 PM CDT Daughter phoned in read her lab results. Daughter still has concerns about mother calcium. * Telephone Encounter - Debra Tellez - 03/05/2019 10:53 AM CDT Who is calling? Daughter If other than self is caller listed on the HIPAA? yes What is the reason for call? Patients daughter ange requesting the phone call go to her when someone from clinical calls to discuss patients lab results Expected Response from the Clinic? Please advise documented in this encounter Plan of Treatment Not on file documented as of this encounter Goals Goal Patient Goal Type Associated Problems Recent Progress Patient-Stated? 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 8:09 AM SECRET CODE EXPERT) No Alisa Jaramillo HEMOGLOBIN A1C < 7.0 Result Component 5.4( 12:00 AM CDT) No Alisa Jaramillo documented as of this encounter Visit Diagnoses Not on filedocumented in this encounter Care Teams Medical Staff Services Manager Relationship Specialty Start [place] [address] [place], [place] [address] PCP - General Internal Medicine 03/31/18 05/30/22 Etienne lForez MD Orthopedic Surgery 12/09/14 [place] [address] [address] [place] [address] Oncology 09/15/17 [place] [address] [facility] [address] [place] [address] Neurology 06/26/18 [place] [address] [facility] [address] [place] [address] Cardiovascular Disease 06/26/18 [place] [address] [address] Pulmonary Disease 06/26/18 Yuliya Ibarra MD [address] [facility] [address] [place] [address] Endocrinology 06/26/18 Phuong Callejas DPM [address] [place], [place] [phone] Podiatry 06/26/18 Sy Barrientos MD [address] [place] [address] [place] [address] Ophthalmology 06/26/18 [place] [address] [address] Pulmonary Disease 06/26/18 Rico Gasca MD [address] [facility] [address] [place] [address] Urology 06/26/18 Elle Landaverde MD [address] [facility] [address] [place] [address] Vascular Surgery 06/26/18 Kirk Truong MD [address] [facility] [address] [place] [address] Gastroenterology 06/26/18 [place] [address] [facility] [address] [address] General Surgery 06/26/18 documented as of this encounter
--- OUTSIDE RECORDS SUMMARY | 2024-05-26 12:39 | XMS_ITS | Encounter Summary ---
Author Organization [facility] Address [address] [facility] [place] [address] Care Team Providers Care Job Compositor Name Role Phone Etienne Florez MD Unavailable Enrique Gonzalez MD Unavailable [phone] Theresa Camargo MD Primary Care Provider [phone] Nelson Ross MD Unavailable Laz Valencia MD Unavailable Russell Moran MD Unavailable [phone] Yuliya Ibarra MD Unavailable Phuong Callejas DPM Unavailable [phone] Sy Barrientos MD Unavailable [phone] Russell Moran MD Unavailable Rico Gasca MD Unavailable [phone] Elle Landaverde MD Unavailable [phone] Kirk Truong MD Unavailable Shira Love DO Unavailable [phone] Reason for Visit * Reason Comments Refill Request Encounter Details Date Type Department Care Team (Late st Contact Info) Description 03/15/2019 Refill [facility] - Family Medicine [address] [facility] [address] [place] [address] [place] [address] [facility] [address] [place] [address] Refill Request Social History Tobacco [...] Telephone Encounter - Bonny Ballesteros RN - 03/16/2019 9:30 AM CDT Last refill: 12/16/2018 Last OV 02/2019 documented in this encounter Plan of Treatment Not on file documented as of this encounter Goals Goal Patient Goal Type Associated Problems Recent Progress Patient-Stated? 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 8:09 AM CODING QUALITY COORDINATOR) No Alisa Jaramillo HEMOGLOBIN A1C < 7.0 Result Component 5.4( 12:00 AM CDT) No Alisa Jaramillo documented as of this encounter Visit Diagnoses Not on filedocumented in this encounter Care Teams Job Compositor Relationship Specialty Start [place] [address] [facility] [address] [place] [address] PCP - General Internal Medicine 03/31/18 05/30/22 Etienne Florez MD Orthopedic Surgery 12/09/14 [place] [address] [facility] [address] [address] [place] [address] Oncology 09/15/17 [place] [address] [facility] [address] [place] [address] Neurology 06/26/18 [place] [address] [facility] [address] [place] [address] Cardiovascular Disease 06/26/18 [place] [address] [id number] Pulmonary Disease 06/26/18 Yuliya Ibarra MD [address] [facility] [address] [place] [address] Endocrinology 06/26/18 Phuong Callejas DPM [address] [place] [address] Podiatry 06/26/18 Sy Barrientos MD [address] [facility] [place] [address] Ophthalmology 06/26/18 [place] [address] [address] Pulmonary Disease 06/26/18 Rico Gasca MD [address] [address] Urology 06/26/18 Elle Landaverde MD [address] [address] Vascular Surgery 06/26/18 Kirk Truong MD [address] [address] Gastroenterology 06/26/18 [place] [address] [facility] [address] [place] [address] General Surgery 06/26/18 documented as of this encounter
--- OUTSIDE RECORDS SUMMARY | 2024-05-26 12:39 | XMS_ITS | Encounter Summary ---
Author Organization [facility] Address [address] [place] [address] Care Team Providers Care Golf Club Head Inspector And Adjuster Name Role Phone Etienne Florez MD Unavailable Enrique Gonzalez MD Unavailable [phone] Theresa Camargo MD Primary Care Provider Nelson Ross MD Unavailable Laz Valencia MD Unavailable Russell Moran MD Unavailable Yuliya Ibarra MD Unavailable Phuong Callejas DPM Unavailable Sy Barrientos MD Unavailable Russell Moran MD Unavailable [phone] Rico Gasca MD Unavailable Elle Ladnaverde MD Unavailable [phone] Kirk Truong MD Unavailable [phone] Shira Love DO Unavailable [phone] Theresa Camargo MD Unavailable [phone] Reason for Visit * Reason Onset Date Comments Care Management 04/20/2019 Encounter Details Date Type Department Care Team (Late st Contact Info) Description 04/20/2019 Telephone [facility] [id number] [place] [address], [address] [place] [address] Hussain Norris MD [address] [place] [address] [address] [place] [address] Care Management Social History Tobacco Use Types [...] encounter Miscellaneous Notes * Telephone Encounter - Laisha Diaz - 04/20/2019 2:26 PM CST HH ordered ROAD MAINTENANCE CLERK * Telephone Encounter - Nelly Beasley - 04/20/2019 11:36 AM CST Brooke, please order Home Health for catheter changes for this patient. Thanks! ROAD MAINTENANCE CLERK documented in this encounter Plan of Treatment Not on file documented as of this encounter Goals Goal Patient Goal Type Associated Problems Recent Progress Patient-Stated? 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 8:09 AM RAILROAD MAINTENANCE CLERK) No Alisa Jaramillo HEMOGLOBIN A1C < 7.0 Result Component 5.4( 12:00 AM CDT) No Alisa Jaramillo documented as of this encounter Visit Diagnoses Diagnosis Incomplete emptying of bladder- Primary Incomplete bladder emptying documented in this encounter Care Teams Golf Club Head Inspector And Adjuster Relationship Specialty [place] [address] [facility] [address] [place] [address] PCP - General Internal Medicine 03/31/18 05/30/22 [place] [address] [facility] [address] [place] [address] PCP - Attributed-MSSP 04/18/19 06/18/19 Etienne Florez MD Orthopedic Surgery 12/09/14 [place] [address] [facility] [address] [place] [address] Oncology 09/15/17 [place] [address] [facility] [address] [place] [address] Neurology 06/26/18 [place] [address] [facility] [address] [place] [address] Cardiovascular Disease 06/26/18 [place] [address] [address] Pulmonary Disease 06/26/18 Yuliya Ibarra MD [address] [place] [address] Endocrinology 06/26/18 Phuong Callejas DPM [address] [place], [place] [id number] Podiatry 06/26/18 Sy Barrientos MD [address] [place] [address] [place] [address] Ophthalmology 06/26/18 [place] [address] [id number] Pulmonary Disease 06/26/18 Rico Gasca MD [address] [facility] [address] [place] [address] Urology 06/26/18 Elle Landaverde MD [address] [facility] [address] [place] [address] Vascular Surgery 06/26/18 Kirk Truong MD [address] [facility] [address] [place] [address] Gastroenterology 06/26/18 [place] [address] [place] [address] General Surgery 06/26/18 documented as of this encounter
--- OUTSIDE RECORDS SUMMARY | 2024-05-26 12:39 | XMS_ITS | Encounter Summary ---
Author Organization [facility] Address [address] [facility] [place] [address] Care Team Providers Care Chemical Process Equipment Operator Name Role Phone Etienne Florez MD Unavailable Enrique Gonzalez MD Unavailable [phone] Theresa Camargo MD Primary Care Provider Nelson Ross MD Unavailable [phone] Laz Valencia MD Unavailable Russell Moran MD Unavailable [phone] Yuliya Ibarra MD Unavailable Phuong Callejas DPM Unavailable Sy Barrientos MD Unavailable Russell Moran MD Unavailable Rico Gasca MD Unavailable Elle Landaverde MD Unavailable [phone] Kirk Truong MD Unavailable Shira Love DO Unavailable [phone] Theresa Camargo MD Unavailable [phone] Reason for Visit * Reason Comments Refill Request Encounter Details Date Type Department Care Team (Late st Contact Info) Description 05/12/2019 Refill [facility] [address] [facility] [address] [place] [address] [place] [address] [facility] [address] [place] [address] Refill Request Social History Tobacco [...] < 140/90 Blood Pressure 127/52(2022 8:09 AM MACHINE STONECUTTER) No Alisa Jaramillo HEMOGLOBIN A1C < 7.0 Result Component 5.4( 12:00 AM CDT) No Alisa Jaramillo documented as of this encounter Visit Diagnoses Not on filedocumented in this encounter Care Teams Chemical Process Equipment Operator Relationship Specialty Start [place] [address] [facility] [address] [place] [address] PCP - General Internal Medicine 03/31/18 05/30/22 [place] [address] [facility] [address] [place] [address] PCP - Attributed-MSSP 04/18/19 06/18/19 Etienne Florez MD Orthopedic Surgery 12/09/14 [place] [address] [facility] [address] [place] [address] Oncology 09/15/17 [place] [address] [facility] [address] [place] [address] Neurology 06/26/18 [place] [address] [facility] [address] [place] [address] Cardiovascular Disease 06/26/18 [place] [address] [id number] Pulmonary Disease 06/26/18 Yuliya Ibarra MD [address] [facility] [address] [place] [address] Endocrinology 06/26/18 Phuong Callejas DPM [address] [place], [place] [address] Podiatry 06/26/18 Sy Barrientos MD [address] [place] [address] Ophthalmology 06/26/18 [place] [address] [address] Pulmonary Disease 06/26/18 Rico Gasca MD [address] [place] [address] Urology 06/26/18 Elle Landaverde MD [address] [facility] [address] [place] [address] Vascular Surgery 06/26/18 Kirk Truong MD [address] [facility] [address] [place] [address] Gastroenterology 06/26/18 [place] [address] [address] [facility] [address] [place] [address] General Surgery 06/26/18 documented as of this encounter
--- OUTSIDE RECORDS SUMMARY | 2024-05-26 12:39 | XMS_ITS | Encounter Summary ---
Author Organization [facility] Address [address] [place] [address] Care Team Providers Care Station Helper Name Role Phone Etienne Florez MD Unavailable [phone] Enrique Gonzalez MD Unavailable [phone] Theresa Camargo MD Primary Care Provider [phone] Nelson Ross MD Unavailable Laz Valencia MD Unavailable Russell Moran MD Unavailable [phone] Yuliya Ibarra MD Unavailable Phuong Callejas DPM Unavailable Sy Barrientos MD Unavailable Russell Moran MD Unavailable [phone] Rico Gasca MD Unavailable [phone] Elle Landaverde MD Unavailable Kirk Truong MD Unavailable Shira Love DO Unavailable [phone] Reason for Visit * Auth/Cert Specialty Diagnoses / Procedures Referred By Alejandrina vale Referred To Contact Procedures COLONOSCOPY SCREEN Referral ID Status Reason Start Date Expiration Date Visits Re quested Visits Authorized [id number] 1 1 Encounter Details Date Type Department Care Team (Late st Contact Info) Description 02/17/2019 10:03 AM CDT Anesthesia Event [facility] [address] [place] [address] Blaze Ospina MD [address] [facility] [place] [address] Elpidio Reyes, HAM STRIPPER-AUDIOVISUAL LIBRARIAN [address] [facility] [place] [address] Anesthesia Record Procedure Summary Procedure Name Responsible Anesthesiologist Anesthesia Start Time Anesthesia Stop Time COLONOSCOPY WITH BIOPSY AND POSSIBLE POLYPECTOMY Blaez Ospina MD 02/17/19 1003 02/17/19 1104 Events Date Time Event Comment 02/17/2019 0951 1003 An Start 1004 Out OR Start Data 1005 PT Reassessment 1005 Electnc Sig 1006 Timeout Anesthesia part icipated in timeout at the time documented in the record by nursing. 1104 Out OR Stop Data 1104 An Stop Meds Name Total lidocaine 2% (PF) injection (20 mg/mL) 5 0 mg propofol (DIPRIVAN) injection 10mg/ml (E NDO USE) 76 mL 0.9% NaCl infusion 300 mL * Agents Name Exp. N2O O2 * Blood No blood administrations on file. Lines, Drains, and Airways Type Details Placement Removal Peripheral IV Date: 02/17/19; Time : 920; Orientation: Right; Placed By: DES Zacarias; Tolerance: Well 02/17/19 0921 by Maisha Hoyt RN 02/17/19 1153 by Annette Prakash RN documented in this encounter Social History Tobacco Use Types Packs/Day [...] as of this encounter Progress Notes * Elpidio Reyes APRN-CRNA - 02/17/2019 11:02 AM CDT ANESTHESIA POSTOP EVALUATION NOTE Procedure: COLONOSCOPY WITH BIOPSY AND POSSIBLE POLYPECTOMY Perla Leon is a 78 year old female Patient Vitals for the past 6 hrs: BP Temp Pulse Resp SpO2 02/17/19 0911 -- 97.8 ??F (36.6 ??C) -- -- -- 02/17/19 0916 156/71 -- 78 18 96 % 02/17/19 1003 135/85 -- 71 17 96 % Anesthesia Type: MAC * No Diagnosis Codes entered * Mental Status: awake Neuro Status: No numbess, tingling or visual disturbances Respiratory Function: natural Cardiac Function: stable Postop Pain: acceptable to the patient Postop Hydration: adequate Postop Nausea: none Assessment: no apparent anesthetic complications Patient Disposition: Release from Anesthesia Care Non Reportable Improvement Section (otherwise blank): * Elpidio Reyes APRN-CRNA - 02/17/2019 9:51 AM CDT ANESTHESIA PREOPERATIVE EVALUATION NOTE Procedure: COLONOSCOPY WITH BIOPSY AND POSSIBLE POLYPECTOMY NPO status: Since Midnight (02/17/2019 9:13 AM) Vitals: Patient Vitals for the past 6 hrs: BP Temp Pulse Resp SpO2 02/17/19 0916 156/71 -- 78 18 96 % 02/17/19 0911 -- 97.8 ??F (36.6 ??C) -- -- -- ANESTHESIA PRE-EVALUATION NOTE Physical Exam: Orientation X3 Airway/Mallampati Score: III Mouth Opening Distance: 2.5 fingerwidths Neck ROM: full TM Distance: > 3 FB Teeth: normal Heart: regular rate rhythm Lungs: normal Abdomen Exam: normal Review of Systems: GERD: Yes, well controlled Diagnostic Tests: ECG(s) reviewed: Yes Lab(s) reviewed: Yes. ANESTHESIA PLAN ASA Score: 3 NPO Status: No solids since midnight Anesthesia Plan: MAC Planned Induction: intravenous Planned Postop Destination: PACU Anesthetic plan was discussed with: patient Anesthetic Plan discussion was: Consented BMI, Height, Weight Tobacco History Estimated body mass index is 32.95 kg/m?? as calculated from the following: Height as of this encounter: 1.651 m (5' 5 ). Weight as of this encounter: 89.8 kg (198 lb). Social History Tobacco Use Smoking Status Never Smoker Smokeless Tobacco Never Used Alcohol History Drug History Social History Substance and Sexual Activity Alcohol Use No ??? Alcohol/week: 0.0 standard drinks Social History Substance and Sexual Activity Drug Use No Outpatient Medications: Inpatient Medications: Outpatient Medications Marked as Taking for the 02/17/19 encounter (Hospital Encounter) Medication Sig Last Dose ??? amitriptyline Take 2 tablets by mouth at bedtime 02/15/2019 at Unknown time ??? 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 esomeprazole Take 1 capsule by mouth once daily 02/15/2019 at Unknown time ??? FLECAINIDE ACETATE PO Take 50 mg by mouth 2 times daily 02/15/2019 at Unknown time ??? furosemide Take 1 Tab by mouth once daily 02/15/2019 at Unknown time ??? levothyroxine Take 25 mcg by mouth daily before breakfast 02/15/2019 at Unknown time ??? metOLazone Take 2.5 mg by mouth every 7 days 02/15/2019 at Unknown time ??? rosuvastatin TAKE 1 TABLET AT BEDTIME 02/15/2019 at Unknown time ??? verapamil SR 24hr Take 240 mg by mouth once daily 02/15/2019 at Unknown time Current Facility-Administered Medications Medication Dose Last Dose ??? 0.9% NaCl Allergies: Allergies Allergen Reactions ??? Advair Diskus YEAS INFECTION ??? Aricept [Donepezil] Other I dont remember ??? Diltiazem Swelling ??? Metformin Diarrhea ??? Fluticasone Diarrhea ??? Piper Longum ??? Salmeterol Diarrhea ??? Sotalol Other Hair loss Relevant Problems No relevant active problems Problem List: Patient Active Problem List Diagnosis Date Noted ??? Chronic atrial fibrillation 06/26/2018 Priority: Not Prioritized ??? Partial seizure 06/26/2018 Priority: Not Prioritized 2001 ??? OAB (overactive bladder) 06/26/2018 Priority: Not Prioritized ??? IBS (irritable bowel syndrome) 06/26/2018 Priority: Not Prioritized ??? Left ventricular hypertrophy 06/26/2018 Priority: Not Prioritized ??? Hyperparathyroidism 06/26/2018 Priority: Not Prioritized ??? Chronically dry eyes 06/26/2018 Priority: Not Prioritized ??? Heart murmur [...] T1cN0(i-)M0, stage IA. ER pos 97% (strong), CA pos 23% (moderate), Her-2 neg (1+ on IHC), Ki-67 19% S/p 08/25/2017 excisional biopsy ([place]); spastic paraplegia: 1.1 cm grade 2/3 IDC. No LVI. Margin neg S/p 09/08/2017 sentinel node biopsy ([place]): 2 neg nodes Med onc: Dr. Gonzalez: adjuvant anastrozole Rad onv: Dr. Garcia: decided against radiation ??? 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 Asthma 01/07/2011 ??? HTN (hypertension) 01/07/2011 ??? Sleep apnea 01/07/2011 ??? Type 2 diabetes mellitus without complication 01/07/2011 Medical History: Past Medical History: Diagnosis Date [...] T1cN0(i-)M0, stage IA. ER pos 97% (strong), CA pos 23% (moderate), Her-2 neg (1+ on IHC), Ki-67 19% S/p 08/25/2017 excisional biopsy ([place]); spastic paraplegia: 1.1 cm grade 2/3 IDC. No LVI. Margin neg S/p 09/08/2017 sentinel node biopsy ([place]): 2 neg nodes Med onc:Dr. Lisa: adjuvant anastrozole Rad onv: Dr. Garcia: decided [...] Type 2 diabetes mellitus without complication 01/07/2011 Surgical History: Past Surgical History: Procedure Laterality Date ??? BREAST BIOPSY, EXCISION Left 08/25/2017 Left; EXCISION LEFT BREAST BX W/WIRE LOC IN RADIOLOGY: malignant ??? CARDIAC CATH 08/04/2002, 09/06/2010 ??? Cholecystectomy 10/28/1997 ??? COLONOSCOPY 2011 ??? ENDOSCOPY, UPPER 12/23/2017 ESOPHAGOGASTRODUODENOSCOPY (EGD) DIAGNOSTIC [...] AND LT ARM ??? THYROID NEEDLE BIOPSY Lab Results: Recent Labs Component Name 11/06/18 1043 WBC 7.2 HGB 11.2* HCT 38.2 PLTCOUNT 327 Recent Labs Component Name 11/06/18 1043 SODIUM 144 POTASSIUM 3.6 CHLORIDE 105 CO2 30 BUN 18 CREATININE 0.66 Recent Labs Component Name 11/06/18 1043 GLUCOSE 82 CALCIUM 10.5* ALT 16 AST 15 documented in this encounter Miscellaneous Notes * Anesthesia Transfer of Care - Elpidio Reyes, HAM STRIPPER-AUDIOVISUAL LIBRARIAN - 02/17/2019 11:02 AM CDT ANESTHESIA TRANSFER OF CARE NOTE Today's Date: 02/17/2019 Date of : 1940 Patient: Perla Leon Procedure(s): COLONOSCOPY WITH BIOPSY AND POSSIBLE POLYPECTOMY Surgeon(s): Primary: Kirk Truong MD Preop Diagnosis: * No Diagnosis Codes entered * Pre-op Meds (From admission, onward) Start Stop Status Route Frequency Ordered 02/17/19 1000 0.9% NaCl infusion -- Dispensed IV CONTINUOUS 02/17/19 0922 02/17/19 0953 0.9% NaCl injection 3 mL -- Dispensed IK PRE-PROCEDURE MULTIPLE 02/17/19 0953 02/17/19 1008 lidocaine hcl (PF) (XYLOCAINE MPF) 2 % injection -- Sent PRN 02/17/19 1008 02/17/19 1008 propofol (DIPRIVAN) injection -- Sent CONTINUOUS PRN 02/17/19 1008 * No Diagnosis Codes entered * . Allergies Allergen Reactions ??? Advair Diskus YEAS INFECTION ??? Aricept [Donepezil] Other I dont remember ??? Diltiazem Swelling ??? Metformin Diarrhea ??? Fluticasone Diarrhea ??? Piper Longum ??? Salmeterol Diarrhea ??? Sotalol Other Hair loss Vitals: Patient Vitals for the past 3 hrs: BP Temp Pulse Resp SpO2 02/17/19 1003 135/85 -- 71 17 96 % 02/17/19 0916 156/71 -- 78 18 96 % 02/17/19 0911 -- 97.8 ??F (36.6 ??C) -- -- -- Lines, Drains, and Airways Type Details Placement Removal Peripheral IV Date: 02/17/19; Time: 920; Orientation: Right; Location: Hand; Placed by: DES Zacarias; Cath Gauge: 22 Gauge ; Brand: harp; Tolerance: Well 02/17/19920 by Maisha Hoyt RN Intraprocedure I/O Totals propofol (DIPRIVAN) injection 10mg/ml (ENDO USE) Volume 76 mL 0.9% NaCl infusion Volume infused 300 ml Patient Transfer Location: PACU Transport Airway: spontaneous respirations Complications: None Handoff Given? Yes Checklist or Protocol - The hanson handoff elements that must be included in the transfer of care checklist include: 1. Identification of patient. 2. Identification of responsible practitioner (PACU nurse or advanced practitioner). 3. Discussion of pertinent medical history. 4. Discussion of the surgical/procedure course (procedure, reason for surgery, procedure performed). 5. Intraoperative anesthetic management and issue/concerns. 6. Expectations/Plans for the early post-procedure period. 7. Opportunity for questions and acknowledgement of understanding of report from the receiving PACUteam. JUANITO Cardona documented in this encounter Plan of Treatment Not on file documented as of this encounter Goals Goal Patient Goal Type Associated Problems Recent Progress Patient-Stated? 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 8:09 AM ROUNDHOUSE WORKER) No Alisa Jaramillo HEMOGLOBIN A1C < 7.0 Result Component 5.4( 12:00 AM CDT) No Alisa Jaramillo documented as of this encounter Visit Diagnoses Not on filedocumented in this encounter Administered Medications Inactive Administered Medications - up to 3 most recent administrations Medication Order MAR Action Action Date Dose Rate Site lidocaine hcl (PF) (XYLOCAINE MPF) 2 % injection PRN, Starting on Fri02/17/19 at 1008, Until Fri02/17/19 at 1104, Anesthesia Intra-op $ Given 02/17/2019 10:08 AM CDT 50 mg propofol (DIPRIVAN) injection CONTINUOUS PRN, Starting on Fri02/17/19 at 1008, Until Fri02/17/19 at 1104, Anesthesia Intra-op $ New Bag/Syringe 02/17/2019 10:08 AM CDT documented in this encounter Care Teams Station Helper Relationship Specialty Start [place] [address] [facility] [address] [place] [address] PCP - General Internal Medicine 03/31/18 05/30/22 Etienne Florez MD Orthopedic Surgery 12/09/14 [place] [address] [facility] [address] [place] [address] Oncology 09/15/17 [place] [address] [facility] [address] [place] [address] Neurology 06/26/18 [place] [address] [facility] [address] [place] [address] Cardiovascular Disease 06/26/18 [place] [address] [address] Pulmonary Disease 06/26/18 Yuliya Ibarra MD [address] [facility] [address] [place] [address] Endocrinology 06/26/18 Phuong Callejas DPM [address] [place] [address] Podiatry 06/26/18 Sy Barrientos MD [address] [place] [address] [place] [address] Ophthalmology 06/26/18 [place] [address] [id number] Pulmonary Disease 06/26/18 Rico Gasca MD [address] [address] Urology 06/26/18 Elle Landaverde MD [address] [address] Vascular Surgery 06/26/18 Kirk Truong MD [address] [address] Gastroenterology 06/26/18 [place] [address] [place] [address] [place] [address] General Surgery 06/26/18 documented as of this encounter
--- OUTSIDE RECORDS SUMMARY | 2024-05-26 12:39 | XMS_ITS | Encounter Summary ---
Author Organization [facility] Address [address] [facility] [place] [address] Care Team Providers Care Hard Rock Drill Operator Name Role Phone Etienne Florez MD Unavailable Enrique Gonzalez MD Unavailable [phone] Theresa Camargo MD Primary Care Provider Nelson Ross MD Unavailable Laz Valencia MD Unavailable Russell Moran MD Unavailable Yuliya Ibarra MD Unavailable Phuong Callejas DPM Unavailable Sy Barrientos MD Unavailable [phone] Russell Moran MD Unavailable Rico Gasca MD Unavailable Elle Landaverde MD Unavailable [phone] Kirk Truong MD Unavailable Shira Love DO Unavailable [phone] Theresa Camargo MD Unavailable [phone] Reason for Visit * Reason Comments Follow-up Encounter Details Date Type Department Care Team (Late st Contact Info) Description 06/02/2019 1:20 PM MEDICAL BILLING CLERK Office Visit [facility] [id number] [place] [address], [address], [place] [address] Hussain Norris MD [address] [place] [address] DR [address] [place] [address] Incomplete emptying of bladder (Primary Dx); Urinary tract infection associated with indwelling urethral [...] - - Weight 78 kg (172 lb) 06/02/2019 2:01 PM MEDICAL BILLING CLERK Height 165.1 cm (5' 5 ) 06/02/2019 2:01 PM MEDICAL BILLING CLERK Body Mass Index 28.62 06/02/2019 2:01 PM MEDICAL BILLING CLERK documented in this encounter Functional Status Functional [...] Progress Notes * Hussain Norris MD - 06/02/2019 1:20 PM CST [facility] Urologic Surgery Established Patient Note Encounter Date: 06/02/2019 Patient Name: Perla Leon Referring Provider: Theresa Camargo MD Chief Complaint: Chief Complaint Patient presents with ??? Follow-up History of Present Illness: Ms. Leon is a 78 year old female here for follow-up for urinary incontinence, incomplete emptyingof bladder. Chronic issue. She followed with Dr. Gasca then transferred care here in 03/2019. Catheter placed at that time for incontinence, quality of life. Then developed proteus UTI after catheterwas blocked and was admitted at [facility] end of 04/2019. CT showed cystitis. Completed abx and feels better. She has hereditary spastic paraplegia and is [...] IHC), Ki-67 19% S/p 08/25/2017 excisional biopsy ([place]); spastic paraplegia: 1.1 cm grade 2/3 IDC. [...] ??? Primary hypothyroidism 05/06/2018 ??? Shingles 2002, 2007 ??? Sleep apnea 01/07/2011 ??? Small [...] Not on file Occupational History ??? 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 Smoking status: Never [...] CHF Medications: Outpatient Encounter Medications as of 06/02/2019 Medication Sig Dispense Refill ??? albuterol HFA (PROAIR HFA) 108 (90 BASE) MCG/ACT inhaler Take 2 Puffs by mouth every 4 hours asneeded. ??? amitriptyline (ELAVIL) 25 MG tablet Take 2 tablets by mouth at bedtime 180 tablet [...] 0 ??? esomeprazole (NEXIUM) 40 MG capsule Take 1 capsule by mouth once daily 90 capsule 3 ??? FLECAINIDE ACETATE PO Take 50 mg [...] by mouth once daily ??? nystatin (MYCOSTATIN) 377888 UNIT/GM powder Apply to affected area 2 [...] Take 240 mg by mouth once daily No facility-administered encounter medications on file as of 06/02/2019. Allergies: Allergies Allergen Reactions ??? Advair Diskus [...] muscles. Comfortable, symmetric respiratory effort . : olivas draining clear yellow urine Hematological/Immunological: no [...] No results found for this visit on 06/02/19. Imaging: No results found. Assessment/Plan: Problem Lower Urinary Tract Symptoms (Luts) 11/2018 on myrbetriq 25mg (Dr. Gasca) with some improvement. Had confusion with 50mg? 03/24/19 PVR 304mL. Olivas placed for incontinence, quality of life. Stop myrbetriq. Urinary incontinence, stress, overflow, and functional Incomplete emptying of bladder -continue olivas catheter and will change every 3 weeks (home health ?) to limit obstruction from sediment. She already drinks plenty of fluids. Discussed importance of hygiene to prevent infection. Also discussed she will likely have an occasional infection given the chronic indwelling catheter in consultation. Would not check a urine culture unless she has true symptoms. If checking culture, change catheter first -RTC 6 months Hussain Norris MD [facility] Office [phone] Exchange [phone] CAL BILLING CLERK documented in this encounter Plan of Treatment Not on file documented as of this encounter Goals Goal Patient Goal Type Associated Problems Recent Progress Patient-Stated? 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 8:09 AM MEDICAL BILLING CLERK) No Alisa Jaramillo HEMOGLOBIN A1C < 7.0 Result Component 5.4( 12:00 AM CDT) No Alisa Jaramillo documented as of this encounter Visit Diagnoses Diagnosis Incomplete emptying of bladder- Primary Incomplete bladder emptying Urinary tract infection associated with indwelling urethral catheter, subsequent encounter * Assessment & Plan Note - Hussain Norris MD - 06/01/2019 9:19 PM CSTAssociated Problem(s): Lower urinary tract symptoms (LUTS) (Resolved 11/23/2019) - CAL BILLING CLERK documented in this encounter Care Teams Hard Rock Drill Operator Relationship Specialty [place] [address] [facility] [address] [place], [place] [id number] PCP - General Internal Medicine 03/31/18 05/30/22 [place] [address] [facility] [address] [place] [address] PCP - Attributed-MSSP 04/18/19 06/18/19 Etienne Florez MD Orthopedic Surgery 12/09/14 [place] [address] [facility] [address] [place] [address] Oncology 09/15/17 [place] [address] [facility] [address] [place] [address] Neurology 06/26/18 [place] [address] [facility] [address] [place] [address] Cardiovascular Disease 06/26/18 [place] [address] [place] [address] Pulmonary Disease 06/26/18 Yuliya Ibarra MD [address] [facility] [address] [place] [address] Endocrinology 06/26/18 Phuong Callejas DPM [address] [place] [address] Podiatry 06/26/18 Sy Barrientos MD [address] [place] [address] Ophthalmology 06/26/18 [place] [address] [address] Pulmonary Disease 06/26/18 Rico Gasca MD [address] [facility] [address] [place] [address] Urology 06/26/18 Elle Landaverde MD [address] [place] [address] Vascular Surgery 06/26/18 Kirk Truong MD [address], [place] [address] Gastroenterology 06/26/18 [place] [address] [address] [place] [address] General Surgery 06/26/18 documented as of this encounter
--- OUTSIDE RECORDS SUMMARY | 2024-05-26 12:39 | XMS_ITS | Encounter Summary ---
Author Organization [facility] Address [address] [facility] [place] [address] Care Team Providers Care Universal Grinder Tool Name Role Phone Etienne Florez MD Unavailable [phone] Enrique Gonzalez MD Unavailable [phone] Theresa Camargo MD Primary Care Provider Nelson Ross MD Unavailable Laz Valencia MD Unavailable Russell Moran MD Unavailable Yuliya Ibarra MD Unavailable [phone] Phuong Callejas DPM Unavailable Sy Barrientos MD Unavailable Russell Moran MD Unavailable Rico Gasca MD Unavailable [phone] Elle Landaverde MD Unavailable [phone] Kirk Truong MD Unavailable [phone] Shira Love DO Unavailable [phone] Theresa Camargo MD Unavailable [phone] Reason for Visit * Reason Onset Date Comments Home Health 04/22/2019 Encounter Details Date Type Department Care Team (Late st Contact Info) Description 04/22/2019 Telephone [facility] - Family Medicine [address] [facility] [address] [place] [address] [place] [address] [facility] [address] [place] [address] Home Health Social History Tobacco [...] * Telephone Encounter - Jina Haskins - 04/22/2019 10:20 AM CST Verbal Ok per Dr. Camargo. MATED ACCESS SYSTEMS TECHNICIAN * Telephone Encounter - Wanda Castro - 04/22/2019 9:15 AM CST [facility] updating PCP that they will see pt 2 week 4 for PT MATED ACCESS SYSTEMS TECHNICIAN documented in this encounter Plan of Treatment Not on file documented as of this encounter Goals Goal Patient Goal Type Associated Problems Recent Progress Patient-Stated? 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 8:09 AM AUTOMATED ACCESS SYSTEMS TECHNICIAN) No Alisa Jaramillo HEMOGLOBIN A1C < 7.0 Result Component 5.4( 12:00 AM CDT) No Alisa Jaramillo documented as of this encounter Visit Diagnoses Not on filedocumented in this encounter Care Teams Universal Grinder Tool Relationship Specialty [place] [address] [facility] [address] [place] [address] PCP - General Internal Medicine 03/31/18 05/30/22 [place] [address] [facility] [address] [place] [address] PCP - Attributed-MSSP 04/18/19 06/18/19 Etienne Florez MD Orthopedic Surgery 12/09/14 [place] [address] [facility] [address] [place] [address] Oncology 09/15/17 [place] [address] [facility] [address] [place] [address] Neurology 06/26/18 [place] [address] [address] Cardiovascular Disease 06/26/18 [place] [address] [address] Pulmonary Disease 06/26/18 Yuliya Ibarra MD [address] [place] [address] Endocrinology 06/26/18 Phuong Callejas DPM [address] [place], [place] [address] Podiatry 06/26/18 Sy Barrientos MD [address] [place] [address] [place] [address] Ophthalmology 06/26/18 [place] [address] [id number] Pulmonary Disease 06/26/18 Rico Gasca MD [address] [facility] [address] [place] [address] Urology 06/26/18 Elle Landaverde MD [address] [facility] [address] [place] [address] Vascular Surgery 06/26/18 Kirk Truong MD [address] [facility] [address] [place] [address] Gastroenterology 06/26/18 [place] [address] [place] [address] General Surgery 06/26/18 documented as of this encounter
--- OUTSIDE RECORDS SUMMARY | 2024-05-26 12:39 | XMS_ITS | Encounter Summary ---
Author Organization [facility] Address [address] [facility] [place] [address] Care Team Providers Care Senior Sql Database Developer Name Role Phone Etienne Florez MD Unavailable [phone] Enrique Gonzalez MD Unavailable [phone] Theresa Camargo MD Primary Care Provider Nelson Ross MD Unavailable [phone] Laz Valencia MD Unavailable Russell Moran MD Unavailable Yuliya Ibarra MD Unavailable Phuong Callejas DPM Unavailable [phone] Sy Barrientos MD Unavailable Russell Moran MD Unavailable Rico Gasca MD Unavailable [phone] Elle Landaverde MD Unavailable [phone] Kirk Truong MD Unavailable Shira Love DO Unavailable [phone] Encounter Details Date Type Department Care Team (Latest Contact Info) Description 04/12/2019 1:00 PM DISTRICT MANAGER IN TRAINING Clinical Support [place] [id number] [facility], [address] [place] [phone] Lower urinary tract symptoms (LUTS) Social History Tobacco Use Types Packs/Day Years [...] as of this encounter Progress Notes * Laisha Diaz - 04/12/2019 3:42 PM CST Pt called today c/o uti Sx. She was brought in by her and daughter and was leaking urine. No urine was in her bag. I tried to irrigate and couldn't get any fluid in. I took her catheter out and urine ran everywhere. The cath I took out was a 16 coude clogged catheter. I replaced it with an 18 straight olivas. Urine is draining into the bag. I did a UA and C&S and we will call her with the results. RICT MANAGER IN TRAINING documented in this encounter Plan of Treatment Not on file documented as of this encounter Goals Goal Patient Goal Type Associated Problems Recent Progress Patient-Stated? 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 8:09 AM DISTRICT MANAGER IN TRAINING) No Alisa Jaramillo HEMOGLOBIN A1C < 7.0 Result Component 5.4( 12:00 AM CDT) No Alisa Jaramillo documented as of this encounter Procedures Procedure Name Priority Date/Time Associated Diagnosis Comments CULTURE URINE Routine 04/12/2019 3:56 PM DISTRICT MANAGER IN TRAINING Lower urinary tract symptoms (LUTS) URINALYSIS AUTO - POINT OF CARE (AMB) STL Routine 04/12/2019 Lower urinary tract symptoms (LUTS) documented in this encounter Results * (ABNORMAL) CULTURE URINE (04/12/2019 3:56 PM DISTRICT MANAGER IN TRAINING) Urine Culture Routine Final report(A) [facility] INSURANCE BILL Result 1 Proteus mirabilis(A ) [facility] INSURANCE BILL Comment: Greater than 100,000 colony forming units per mL Cefazolin <=4 ug/mL Cefazolin with an DRAKE <=16 predicts susceptibility to the oral agents cefaclor, cefdinir, cefpodoxime, cefprozil, cefuroxime, cephalexin, and loracarbef when used for therapy of uncomplicated urinary tract infections due to E. coli, Klebsiella pneumoniae, and Proteus mirabilis. Antimicrobial Susceptibility [facility] INSURANCE BILL Comment: ? S = Susceptible; I = Intermediate; R = Resistant ? P = Positive; N = Negative ?MICS are expressed in micrograms per mL ?? Antibiotic ? RSLT#1 ?RSLT#2 ?RSLT#3 ?RSLT#4 Amoxicillin/Clavulanic Acid ?S Ampicillin ? S Cefepime ? S Ceftriaxone ?S Cefuroxime ? S Ciprofloxacin ?S Ertapenem ?S Gentamicin ? S Levofloxacin ? S Meropenem ?S Nitrofurantoin ? R Piperacillin/Tazobactam ?S Tetracycline ? R Tobramycin ? S Trimethoprim/Sulfa ? S Urine URINE SPECIMEN OBTAINED BY CLEAN CATCH PROCEDURE / Unknown 04/12/2019 3:56 PM DISTRICT MANAGER IN TRAINING 04/12/2019 Narrative Resulting Agency Comment Lab Testing performed at: [facility] [address] [facility] ??[facility] [id number] Sonny Camacho MD LAB - MICROBIOLO GY ORDERABLES [facility]ILL [address] [place] [address] * URINALYSIS AUTO - POINT OF CARE (AMB) STL (04/12/2019) Clarity UA POCT clear Color UA POCT yellow Leukocyte UA neg Negative Nitrite UA POCT neg Negative Urobilinogen UA 0.2 0.1 - 1.0 Protein UA POCT neg Negative pH UA 7.5 5.0 - 8.0 pH units Blood UA 1+ Negative Specific Kempner UA POCT 1.010 1.002 - 1.030 Ketone UA neg Negative Bilirubin UA POCT neg Negative Glucose UA 3+ Negative Expiration Date 01/02/2021 Lot # [id number] QC Verified Yes Yes Urine URINE / Unknown 04/12/2019 Sonny Camacho MD LAB - POINT OF C ARE ORDERABLES documented in this encounter Visit Diagnoses Diagnosis Lower urinary tract symptoms (LUTS)- Primary Other symptoms involving urinary system documented in this encounter Care Teams Senior Sql Database Developer Relationship Specialty Start [place] [address] [facility] [address] [place] [address] PCP - General Internal Medicine 03/31/18 05/30/22 Etienne Florez MD Orthopedic Surgery 12/09/14 [place] [address] [facility] [address] [place] [address] Oncology 09/15/17 [place] [address] [facility] [address] [place] [address] Neurology 06/26/18 [place] [address] [facility] [address] [place] [address] Cardiovascular Disease 06/26/18 [place] [address] [address] Pulmonary Disease 06/26/18 Yuliya Ibarra MD [address] [facility] [address] [place] [address] Endocrinology 06/26/18 Phuong Callejas DPM [address] [place] [address] Podiatry 06/26/18 Sy Barrientos MD [address] [place] [address] [place] [address] Ophthalmology 06/26/18 [place] [address] [address] Pulmonary Disease 06/26/18 Rico Gasca MD [address] [address] Urology 06/26/18 Elle Landaverde MD [address] [address] Vascular Surgery 06/26/18 Kirk Truong MD [address] [address] Gastroenterology 06/26/18 [place] [address] [address] [facility] [address] [place] [address] General Surgery 06/26/18 documented as of this encounter
--- OUTSIDE RECORDS SUMMARY | 2024-05-26 12:39 | XMS_ITS | Encounter Summary ---
Author Organization [facility] Address [address] [facility] [place] [address] Care Team Providers Care Um Rn Name Role Phone Etienne Florez MD Unavailable [phone] Enrique Gonzalez MD Unavailable [phone] Theresa Camargo MD Primary Care Provider Nelson Ross MD Unavailable Laz Valencia MD Unavailable Russell Moran MD Unavailable Yuliya Ibarra MD Unavailable Phuong Callejas DPM Unavailable Sy Barrientos MD Unavailable [phone] Russell Moran MD Unavailable Rico Gasca MD Unavailable [phone] Elle Landaverde MD Unavailable Kirk Truong MD Unavailable Shira Love DO Unavailable [phone] Reason for Visit * Reason Onset Date Comments Results 02/19/2019 Encounter Details Date Type Department Care Team (Late st Contact Info) Description 02/19/2019 Telephone [facility] [address] [facility], [address] [place] [address] [place] [address] [facility] [address] [place] [address] Results Social History Tobacco Use Types Packs/Day [...] encounter Miscellaneous Notes * Telephone Encounter - Petty Iverson - 02/19/2019 9:23 AM CDT Spoke with pt regarding results pt understood pt will follow-up with PCP, pt doesn't have any questions or concerns at this present time. * Telephone Encounter - Petty Iverson - 02/19/2019 9:22 AM CDT ----- Message from Kirk Truong MD sent at 02/18/2019 9:10 PM CDT ----- Colon polyps non adenoma tissue No further surveillance colonoscopy recommended OK to f/u with PCP documented in this encounter Plan of Treatment Not on file documented as of this encounter Goals Goal Patient Goal Type Associated Problems Recent Progress Patient-Stated? 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 8:09 AM GARAGE DOOR INSTALLER) No Schpeter Alisa HEMOGLOBIN A1C < 7.0 Result Component 5.4( 12:00 AM CDT) No Jared Jaramilloa documented as of this encounter Visit Diagnoses Not on filedocumented in this encounter Care Teams Um Rn Relationship Specialty [place] [address] [facility] [address] [place], [place] [address] PCP - General Internal Medicine 03/31/18 05/30/22 Etienne Florez MD Orthopedic Surgery 12/09/14 [place] [address] [facility] [address] [place] [address] Oncology 09/15/17 [place] [address] [facility] [address] [place] [address] Neurology 06/26/18 [place] [address] [facility] [address] [place] [address] Cardiovascular Disease 06/26/18 [place] [address] [address] Pulmonary Disease 06/26/18 Yuliya Ibarra MD [address] [place] [address] Endocrinology 06/26/18 Phuong Callejas DPM [address] [place], [place] [address] Podiatry 06/26/18 Sy Barrientos MD [address] [facility] [address] Ophthalmology 06/26/18 [place] [address] [address] Pulmonary Disease 06/26/18 Rico Gasca MD [address] [facility] [address] [place] [address] Urology 06/26/18 Elle Landaverde MD [address] [facility] [address] [place] [address] Vascular Surgery 06/26/18 Kirk Truong MD [address] [facility] [address] [place] [address] Gastroenterology 06/26/18 [place] [address] [place] [address] [place] [address] General Surgery 06/26/18 documented as of this encounter
--- OUTSIDE RECORDS SUMMARY | 2024-05-26 12:39 | XMS_ITS | Encounter Summary ---
Author Organization [facility] Address [address] [facility] [place] [address] Care Team Providers Care Wood Patternmaker Apprentice Name Role Phone Etienne Florez MD Unavailable Enrique Gonzalez MD Unavailable [phone] Theresa Camargo MD Primary Care Provider [phone] Nelson Ross MD Unavailable Laz Valencia MD Unavailable Russell Moran MD Unavailable [phone] Yuliya Ibarra MD Unavailable Phuong Callejas DPM Unavailable Sy Barrientos MD Unavailable Russell Moran MD Unavailable Rico Gasca MD Unavailable Elle Landaverde MD Unavailable Kirk Truong MD Unavailable [phone] Shira Love DO Unavailable [phone] Theresa Camargo MD Unavailable [phone] Encounter Details Date Type Department Care Team (Late st Contact Info) Description 04/19/2019 Orders Only [facility] Medical [facility] [address] [facility], [address] [address] Sahra Aragon Social History Tobacco [...] 140/90 Blood Pressure 127/52(2022 8:09 AM MANAGER APPLICATION) No Alisa Jaramillo HEMOGLOBIN A1C < 7.0 Result Component 5.4( 12:00 AM CDT) No Alisa Jaramillo documented as of this encounter Visit Diagnoses Not on filedocumented in this encounter Care Teams Wood Patternmaker Apprentice Relationship Specialty Start Date End Date Theresa Camargo MD [address] [place] [address] [address] [place], [place] [id number] PCP - General Internal Medicine 03/31/18 05/30/22 Theresa Camargo MD [address] [place] [address] [address] [place] [address] PCP - Attributed-MSSP 04/18/19 06/18/19 Etienne Florez MD Orthopedic Surgery 12/09/14 [place] [address] [facility] [address] [place] [address] Oncology 09/15/17 [place] [address] [facility] [address] [place] [address] Neurology 06/26/18 [place] [address] [facility] [address] [place] [address] Cardiovascular Disease 06/26/18 [place] [address] [address] Pulmonary Disease 06/26/18 Yuliya Ibarra MD [address] [facility] [address] [place] [address] Endocrinology 06/26/18 Phuong Callejas DPM [address] [place] [address] Podiatry 06/26/18 Sy Barrientos MD [address] [place] [address] [place] [address] Ophthalmology 06/26/18 [place] [address] [place] [address] [place] [address] Pulmonary Disease 06/26/18 Rico Gasca MD [address] [place] [address] Urology 06/26/18 Elle Landaverde MD [address] [place] [address] Vascular Surgery 06/26/18 Kirk Truong MD [address] [place] [address] Gastroenterology 06/26/18 [place] [address] [place] [address] General Surgery 06/26/18 documented as of this encounter
--- OUTSIDE RECORDS SUMMARY | 2024-05-26 12:39 | XMS_ITS | Encounter Summary ---
Author Organization [facility] Address [address] [place] [address] Care Team Providers Care Granite Sandblaster Apprentice Name Role Phone Etienne Florez MD Unavailable Enrique Gonzalez MD Unavailable Theresa Camargo MD Primary Care Provider [phone] Nelson Ross MD Unavailable [phone] Laz Valencia MD Unavailable Russell Moran MD Unavailable Yuliya Ibarra MD Unavailable [phone] Phuong Callejas DPM Unavailable Sy Barrientos MD Unavailable Russell Moran MD Unavailable Rico Gasca MD Unavailable [phone] Elle Landaverde MD Unavailable Kirk Truong MD Unavailable Shira Love DO Unavailable [phone] Theresa Camargo MD Unavailable [phone] Encounter Details Date Type Department Care Team (Late st Contact Info) Description 04/21/2019 Orders Only [facility] [address] [place] [address] Unknown, Provider Social History Tobacco Use Types Packs/Day Years [...] < 140/90 Blood Pressure 127/52(2022 8:09 AM HOUSE CALLS NURSE) No Alisa Jaramillo HEMOGLOBIN A1C < 7.0 Result Component 5.4( 12:00 AM CDT) No Alisa Jaramillo documented as of this encounter Procedures Procedure Name Priority Date/Time Associated Diagnosis Comments LAB RESULTS ORDER Routine 04/21/2019 documented in this encounter Results * LAB RESULTS ORDER (04/21/2019) Provider Unknown LAB - THERAPEUTIC DR [facility] MONITORING ORDERABLES documented in this encounter Visit Diagnoses Not on filedocumented in this encounter Care Teams Granite Sandblaster Apprentice Relationship Specialty [place] [address] [address] PCP - General Internal Medicine 03/31/18 05/30/22 [place] [address] [place] [address] PCP - Attributed-MSSP 04/18/19 06/18/19 Etienne Florez MD Orthopedic Surgery 12/09/14 [place] [address] [place] [address] Oncology 09/15/17 [place] [address] [place] [address] Neurology 06/26/18 [place] [address] [facility] [address] [place] [address] Cardiovascular Disease 06/26/18 [place] [address] [id number] Pulmonary Disease 06/26/18 Yuliya Ibarra MD [address] [facility] [address] [place] [address] Endocrinology 06/26/18 Phuong Callejas DPM [address] [place], [place] [address] Podiatry 06/26/18 Sy Barrientos MD [address] [place] [address] Ophthalmology 06/26/18 [place] [address] [address] Pulmonary Disease 06/26/18 Rico Gasca MD [address] [facility] [facility] [address] [place] [address] Urology 06/26/18 Elle Landaverde MD [address] [facility] [address] [place] [address] Vascular Surgery 06/26/18 Kirk Truong MD [address] [facility] [address] [place] [address] Gastroenterology 06/26/18 [place] [address] [facility] [address] [place] [address] General Surgery 06/26/18 documented as of this encounter
--- OUTSIDE RECORDS SUMMARY | 2024-05-26 12:39 | XMS_ITS | Encounter Summary ---
Author Organization [facility] Address [address] [place] [address] Care Team Providers Care Electronic Funds Transfer Coordinator Name Role Phone Etienne Florez MD Unavailable Enrique Gonzalez MD Unavailable [phone] Theresa Camargo MD Primary Care Provider [phone] Nelson Ross MD Unavailable Laz Valencia MD Unavailable Russell Moran MD Unavailable Yuliya Ibarra MD Unavailable [phone] Phuong Callejas DPM Unavailable [phone] Sy Barrientos MD Unavailable Russell Moran MD Unavailable Rico Gasca MD Unavailable [phone] Elle Landaverde MD Unavailable Kirk Truong MD Unavailable Shira Love DO Unavailable [phone] Reason for Visit * Reason Onset Date Comments Home Health 04/13/2019 Encounter Details Date Type Department Care Team (Late st Contact Info) Description 04/13/2019 Telephone [facility] - Family Medicine [address] [facility] [address] [place] [address] [place] [address] [facility] [address] [place] [address] Home Health Social History Tobacco [...] * Telephone Encounter - Jina Haskins - 04/14/2019 1:07 PM CST A verbal is ok I tried to call the number back it just rang WOOD SAWYER * Telephone Encounter - Wanda Castro - 04/13/2019 3:40 PM CST AW [facility] would like verbal to initiate home health for PT and OT next week due to the holiday WOOD SAWYER documented in this encounter Plan of Treatment Not on file documented as of this encounter Goals Goal Patient Goal Type Associated Problems Recent Progress Patient-Stated? 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 8:09 AM HARDWOOD SAWYER) No Alisa Jaramillo HEMOGLOBIN A1C < 7.0 Result Component 5.4( 12:00 AM CDT) No VilmasarthakAlisa marks documented as of this encounter Visit Diagnoses Not on filedocumented in this encounter Care Teams Electronic Funds Transfer Coordinator Relationship Specialty Start [place] [address] [facility] [address] [place], [place] [address] PCP - General Internal Medicine 03/31/18 05/30/22 Etienne Florez MD Orthopedic Surgery 12/09/14 [place] [address] [facility] [address] [place] [address] Oncology 09/15/17 [place] [address] [facility] [address] [place] [address] Neurology 06/26/18 [place] [address] [facility] [address] [place] [address] Cardiovascular Disease 06/26/18 [place] [address] [address] Pulmonary Disease 06/26/18 Yuliya Ibarra MD [address] [facility] [address] [place] [address] Endocrinology 06/26/18 Phuong Callejas DPM [address] [place] [address] Podiatry 06/26/18 Sy Barrientos MD [address] [place] [address] [place] [address] Ophthalmology 06/26/18 [place] [address] [phone] Pulmonary Disease 06/26/18 Rico Gasca MD [address] [facility] [address] [place] [address] Urology 06/26/18 Elle Landaverde MD [address] [facility] [address] [place] [address] Vascular Surgery 06/26/18 Kirk Truong MD [address] [facility] [address] [place] [address] Gastroenterology 06/26/18 [place] [address] [place] [address] [place] [phone] General Surgery 06/26/18 documented as of this encounter
--- OUTSIDE RECORDS SUMMARY | 2024-05-26 12:39 | XMS_ITS | Encounter Summary ---
Author Organization [facility] Address [address] [address] Care Team Providers Care Metal Turner Name Role Phone Etienne Florez MD Unavailable [phone] Enrique Gonzalez MD Unavailable [phone] Theresa Camargo MD Primary Care Provider [phone] Nelson Ross MD Unavailable Laz Valencia MD Unavailable Russell Moran MD Unavailable [phone] Yuliya Ibarra MD Unavailable Phuong Callejas DPM Unavailable Sy Barrientos MD Unavailable Russell Moran MD Unavailable [phone] Rico Gasca MD Unavailable [phone] Elle Landaverde MD Unavailable Kirk Truong MD Unavailable Shira Love DO Unavailable [phone] Theresa Camargo MD Unavailable [phone] Brooke Haynes [facility] Unavailable [phone] Reason for Visit * Reason Onset Date Comments Patient Requested Call 03/23/2019 Encounter Details Date Type Department Care Team (Late st Contact Info) Description 03/23/2019 Telephone [facility] - Family Medicine [address] [facility] [address] [place] [address] [place] [address] [facility] [address] [place] [address] Patient Requested Call Social History [...] * Telephone Encounter - Dayanara Singh - 03/23/2019 12:17 PM CST Called patient daughter Bekah left a detailed message on voice mail of Dr. Camargo note. REGULATORY AFFAIRS SPECIALIST * Telephone Encounter - Theresa Camargo MD - 03/23/2019 10:44 AM CST These things should be coming from the rehab facility since they will have documentation of her sleep study as well as documentation of need for the leg compression. They should make arrangements foreverything that she will need before her discharge. Then she will also need to make an appointment with me for follow-up. If they are still needs at follow-up with me we can address them at that time. REGULATORY AFFAIRS SPECIALIST * Telephone Encounter - Damir Wan - 03/23/2019 8:56 AM CST Who is calling? Daughter If other than self is caller listed on the HIPAA? yes What is the reason for call? Priscilla called in said that ijeoma is in rehab for 20 days and she will be needing a order for a CPAP machine and a Leg compression machine before she can leave rehab. Bekah would like to know if Dr. Camargo can order these items for Ijeoma. Expected Response from the Clinic? Requesting a call back soon. REGULATORY AFFAIRS SPECIALIST documented in this encounter Plan of Treatment Not on file documented as of this encounter Goals Goal Patient Goal Type Associated Problems Recent Progress Patient-Stated? 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 8:09 AM DRUG REGULATORY AFFAIRS SPECIALIST) No Alisa Jaramillo HEMOGLOBIN A1C < 7.0 Result Component 5.4( 12:00 AM CDT) No Alisa Jaramillo documented as of this encounter Visit Diagnoses Not on filedocumented in this encounter Care Teams Metal Turner Relationship Specialty [place] [address] [facility] [address] [place] [address] PCP - General Internal Medicine 03/31/18 05/30/22 [place] [address] [facility] [address] [place] [address] PCP - Attributed-MSSP 04/18/19 06/18/19 Brooke Haynes, ENDOSCOPE TECHNICIAN-PANTRY ATTENDANT [address] [facility] [address] [place] [address] PCP - Attributed-MSSP 06/19/19 07/17/19 Etienne Florez MD Orthopedic Surgery 12/09/14 [place] [address] [facility] [address] [place] [address] Oncology 09/15/17 [place] [address] [facility] [address] [place] [address] Neurology 06/26/18 [place] [address] [facility] [address] [place] [address] Cardiovascular Disease 06/26/18 [place] [address] [id number] Pulmonary Disease 06/26/18 Yuliya Ibarra MD [address] [facility] [address] [place] [address] Endocrinology 06/26/18 Phuong Callejas DPM [address] [place] [address] Podiatry 06/26/18 Sy Barrientos MD [address] [place] [address] [place] [address] Ophthalmology 06/26/18 [place] [address] [facility] [address] [place] [address] Pulmonary Disease 06/26/18 Rico Gasca MD [address] [facility] [address] [place] [address] Urology 06/26/18 Elle Landaverde MD [address] [facility] [address] [place] [address] Vascular Surgery 06/26/18 Kirk Truong MD [address] [facility] [address] [place] [address] Gastroenterology 06/26/18 [place] [address] [place] [address] [place] [phone] General Surgery 06/26/18 documented as of this encounter
--- OUTSIDE RECORDS SUMMARY | 2024-05-26 12:39 | XMS_ITS | Encounter Summary ---
Author Organization [facility] Address [address] [facility] [place] [address] Care Team Providers Care International Accountant Name Role Phone Etienne Florez MD Unavailable Enrique Gonzalez MD Unavailable [phone] Theresa Camargo MD Primary Care Provider Nelson Ross MD Unavailable Laz Valencia MD Unavailable Russell Moran MD Unavailable Yuliya Ibarra MD Unavailable [phone] Phuong Callejas DPM Unavailable Sy Barrientos MD Unavailable Russell Moran MD Unavailable [phone] Rico Gasca MD Unavailable Elle Landaverde MD Unavailable Kirk Truong MD Unavailable Shira Love DO Unavailable [phone] Reason for Visit * Reason Onset Date Comments Results 02/19/2019 Encounter Details Date Type Department Care Team (Late st Contact Info) Description 02/19/2019 Telephone [facility] [address] [place] [address] [place] [address] [facility] [address] [place] [address] Results Social History Tobacco Use [...] Telephone Encounter - Marisol Burroughs RN - 02/19/2019 9:29 AM CDT Results and recommendations called to patient * Telephone Encounter - Marisol Burroughs RN - 02/19/2019 9:29 AM CDT ----- Message from Kirk Truong [...] < 140/90 Blood Pressure 127/52(2022 8:09 AM ICE DELIVERY DRIVER) No Clint Alisa HEMOGLOBIN A1C < 7.0 Result Component 5.4( 12:00 AM CDT) No Alisa Jaramillo documented as of this encounter Visit Diagnoses Not on filedocumented in this encounter Care Teams International Accountant Relationship Specialty Start [place] [address] [facility] [address] [place] [address] PCP - General Internal Medicine 03/31/18 05/30/22 Etienne Florez MD Orthopedic Surgery 12/09/14 [place] [address] [facility] [address] [place] [address] Oncology 09/15/17 [place] [address] [facility] [address] [place] [address] Neurology 06/26/18 [place] [address] [facility] [address] [place] [address] Cardiovascular Disease 06/26/18 [place] [address] [facility] [address] [place] [address] Pulmonary Disease 06/26/18 Yuliya Ibarra MD [address] [place] [address] Endocrinology 06/26/18 Phuong Callejas DPM [address] [place] [address] Podiatry 06/26/18 Sy Barrientos MD [address] [place] [address] [place] [address] Ophthalmology 06/26/18 [place] [address] [id number] Pulmonary Disease 06/26/18 Rico Gasca MD [address] [facility] [address] [place] [address] Urology 06/26/18 Elle Landaverde MD [address] [facility] [address] [place] [address] Vascular Surgery 06/26/18 Kirk Truong MD [address] [facility] [address] [place] [address] Gastroenterology 06/26/18 [place] [address] [place] [address] General Surgery 06/26/18 documented as of this encounter
--- OUTSIDE RECORDS SUMMARY | 2024-05-26 12:39 | XMS_ITS | Encounter Summary ---
Author Organization [facility] Address [address] [facility] [place] [address] Care Team Providers Care Supervisor Fabrication And Assembly Name Role Phone Etienne Florez MD Unavailable Enrique Gonzalez MD Unavailable [phone] Theresa Camargo MD Primary Care Provider [phone] Nelson Ross MD Unavailable Laz Valencia MD Unavailable Russell Moran MD Unavailable [phone] Yuliya Ibarra MD Unavailable Phuong Callejas DPM Unavailable [phone] Sy Barrientos MD Unavailable [phone] Russell Moran MD Unavailable [phone] Rico Gasca MD Unavailable Elle Landaverde MD Unavailable [phone] Kirk Truong MD Unavailable Shira Love DO Unavailable [phone] Theresa Camargo MD Unavailable [phone] Reason for Visit * Reason Onset Date Comments Order 04/22/2019 Encounter Details Date Type Department Care Team (Late st Contact Info) Description 04/22/2019 Telephone [facility] - Family Medicine [address] [facility] [address] [place] [address] [place] [address] [facility] [address] [place] [address] Order Social History Tobacco Use Types Packs/Day Years [...] * Telephone Encounter - Jina Haskins - 04/23/2019 11:57 AM CST Verbal ok per Dr. Camargo AL TESTER * Telephone Encounter - Dayanara Singh - 04/22/2019 2:12 PM CST Tory called from [facility] OT states patient had multiple doctors appointment and they needing orders 1 x a week for 1 week starting on 04/26/19 for evaluation. AL TESTER documented in this encounter Plan of Treatment Not on file documented as of this encounter Goals Goal Patient Goal Type Associated Problems Recent Progress Patient-Stated? 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 8:09 AM SIGNAL TESTER) No YeceniaAlisa marks HEMOGLOBIN A1C < 7.0 Result Component 5.4( 12:00 AM CDT) No Alisa Jaramillo documented as of this encounter Visit Diagnoses Not on filedocumented in this encounter Care Teams Supervisor Fabrication And Assembly Relationship Specialty Start [place] [address] [facility] [address] [place] [address] PCP - General Internal Medicine 03/31/18 05/30/22 [place] [address] [facility] [address] [place] [address] PCP - Attributed-MSS 04/18/19 06/18/19 Etienne Florez MD Orthopedic Surgery 12/09/14 [place] [address] [facility] [address] [place] [address] Oncology 09/15/17 [place] [address] [facility] [address] [place] [address] Neurology 06/26/18 [place] [address] [phone] Cardiovascular Disease 06/26/18 [place] [address] [address] Pulmonary Disease 06/26/18 Yuliya Ibarra MD [address] [place] [address] Endocrinology 06/26/18 Phuong Callejas DPM [address] [place] [address] Podiatry 06/26/18 Sy Barrientos MD [address] [place] [address] [place] [address] Ophthalmology 06/26/18 [place] [address] [id number] Pulmonary Disease 06/26/18 Rico Gasca MD [address] [facility] [address] [place] [address] Urology 06/26/18 Elle Landaverde MD [address] [facility] [address] [place] [address] Vascular Surgery 06/26/18 Kirk Truong MD [address] [facility] [address] [place] [address] Gastroenterology 06/26/18 [place] [address] [place] [address] [place] [phone] General Surgery 06/26/18 documented as of this encounter
--- OUTSIDE RECORDS SUMMARY | 2024-05-26 12:39 | XMS_ITS | Encounter Summary ---
Author Organization [facility] Address [address] [facility] [place] [address] Care Team Providers Care Centrifugal Extractor Operator Name Role Phone Etienne Florez MD Unavailable [phone] Enrique Gonzalez MD Unavailable Theresa Camargo MD Primary Care Provider Nelson Ross MD Unavailable Laz Valencia MD Unavailable Russell Moran MD Unavailable [phone] Yuliya Ibarra MD Unavailable [phone] Phuong Callejas DPM Unavailable Sy Barrientos MD Unavailable Russell Moran MD Unavailable Rico Gasca MD Unavailable Elle Landaverde MD Unavailable [phone] Kirk Truong MD Unavailable [phone] Shira Love DO Unavailable [phone] Theresa Camargo MD Unavailable [phone] Reason for Visit * Reason Onset Date Comments Update 04/14/2019 Encounter Details Date Type Department Care Team (Late st Contact Info) Description 04/14/2019 Telephone [facility] - Family Medicine [address] [facility] [address] [place] [address] [place] [address] [facility] [address] [place] [address] Update Social History Tobacco Use [...] Telephone Encounter - Jina Haskins - 04/14/2019 4:08 PM CST Verbal ok, notified Nathaly THCARE REPRESENTATIVE * Telephone Encounter - Dayanara Singh - 04/14/2019 3:12 PM CST Nathaly called from Home Care states patient open up home care today 2 x a week for 2 weeks then 1 x week for 2 weeks. Nathaly states patient daughter is requesting to check patient potassium. Nathaly is asking for verbal order for potassium blood drawn for next home care visit. THCARE REPRESENTATIVE documented in this encounter Plan of Treatment Not on file documented as of this encounter Goals Goal Patient Goal Type Associated Problems Recent Progress Patient-Stated? 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 8:09 AM HEALTHCARE REPRESENTATIVE) No Alisa Jaramillo HEMOGLOBIN A1C < 7.0 Result Component 5.4( 12:00 AM CDT) No Alisa Jaramillo documented as of this encounter Visit Diagnoses Not on filedocumented in this encounter Care Teams Centrifugal Extractor Operator Relationship Specialty Start [place] [address] [facility] [address] [place] [address] PCP - General Internal Medicine 03/31/18 05/30/22 [place] [address] [facility] [address] [place] [address] PCP - Attributed-MSSP 04/18/19 06/18/19 Etienne Florez MD Orthopedic Surgery 12/09/14 [place] [address] [address] Oncology 09/15/17 [place] [address] [phone] Neurology 06/26/18 [place] [address] [phone] Cardiovascular Disease 06/26/18 [place] [address] [phone] Pulmonary Disease 06/26/18 Yuliya Ibarra MD [address] [place] [address] Endocrinology 06/26/18 Phuong Callejas DPM [address] [place] [address] Podiatry 06/26/18 Sy Barrientos MD [address] [place] [address] [place] [address] Ophthalmology 06/26/18 [place] [address] [address] Pulmonary Disease 06/26/18 Rico Gasca MD [address] [facility] [address] [place] [address] Urology 06/26/18 Elle Landaverde MD [address] [facility] [address] [place] [address] Vascular Surgery 06/26/18 Kirk Truong MD [address] [facility] [address] [place] [address] Gastroenterology 06/26/18 [place] [address] [address] [address] [place] [phone] General Surgery 06/26/18 documented as of this encounter
--- OUTSIDE RECORDS SUMMARY | 2024-05-26 12:39 | XMS_ITS | Encounter Summary ---
Author Organization [facility] Address [address] [place] [address] Care Team Providers Care Coil Finisher Name Role Phone Etienne Florez MD Unavailable Enrique Gonzalez MD Unavailable [phone] Theresa Camargo MD Primary Care Provider Nelson Ross MD Unavailable [phone] Laz Valencia MD Unavailable Russell Moran MD Unavailable Yuliya Ibarra MD Unavailable Phuong Callejas DPM Unavailable Sy Barrientos MD Unavailable Russell Moran MD Unavailable [phone] Rico Gasca MD Unavailable [phone] Elle Landaverde MD Unavailable [phone] Kirk Truong MD Unavailable [phone] Shira Love DO Unavailable [phone] Reason for Visit * Reason Onset Date Comments Question 02/19/2019 Encounter Details Date Type Department Care Team (Late st Contact Info) Description 02/19/2019 Telephone [facility] Medical [facility] - Family Medicine [address] [facility] [address] [place] [address] [place] [address] [facility] [address] [place] [address] Question Social History Tobacco Use [...] encounter Miscellaneous Notes * Telephone Encounter - Humberto Jamil - 02/22/2019 3:56 PM CDT Per patient disregard. * Telephone Encounter - Theresa Camargo MD - 02/21/2019 9:33 PM CDT Give her the name and number of [facility] urology. (any one in the group is fine). * Telephone Encounter - Teagan Olivares - 02/19/2019 3:19 PM CDT Who is calling? Self What is the reason for call? Patient would like to find a new urologist at [facility] and was wonderingif PCP had any recommendations. Expected Response from the Clinic? ( ex. Call back, etc..) please call and advise. documented in this encounter Plan of Treatment Not on file documented as of this encounter Goals Goal Patient Goal Type Associated Problems Recent Progress Patient-Stated? 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 8:09 AM PROTOTYPE SPECIAL BUILD) No Alisa Jaramillo HEMOGLOBIN A1C < 7.0 Result Component 5.4( 12:00 AM CDT) No Alisa Jaramillo documented as of this encounter Visit Diagnoses Not on filedocumented in this encounter Care Teams Coil Finisher Relationship Specialty [place] [address] [facility] [address] [place], [place] [address] PCP - General Internal Medicine 03/31/18 05/30/22 Etienne Florez MD Orthopedic Surgery 12/09/14 [place] [address] [facility] [address] [place] [address] Oncology 09/15/17 [place] [address] [facility] [address] [place] [address] Neurology 06/26/18 [place] [address] [facility] [address] [place] [address] Cardiovascular Disease 06/26/18 [place] [address] [place] [address] Pulmonary Disease 06/26/18 Yuliya Ibarra MD [address] [place] [address] Endocrinology 06/26/18 Phuong Callejas DPM [address] [place] [address] Podiatry 06/26/18 Sy Barrientos MD [address] [place] [address] [place] [address] Ophthalmology 06/26/18 [place] [address] [address] Pulmonary Disease 06/26/18 Rico Gasca MD [address] [facility] [address] [place] [address] Urology 06/26/18 Elle Landaverde MD [address] [place] [address] Vascular Surgery 06/26/18 Kirk Truong MD [address] [facility] [address] [place] [address] Gastroenterology 06/26/18 [place] [address] [place] [address] General Surgery 06/26/18 documented as of this encounter
--- OUTSIDE RECORDS SUMMARY | 2024-05-26 12:39 | XMS_ITS | Encounter Summary ---
Author Organization [facility] Address [address] [facility] [place] [address] Care Team Providers Care Unit Receptionist Name Role Phone Etienne Florez MD Unavailable Enrique Gonzalez MD Unavailable [phone] Theresa Camargo MD Primary Care Provider Nelson Ross MD Unavailable [phone] Laz Valencia MD Unavailable Russell Moran MD Unavailable [phone] Yuliya Ibarra MD Unavailable Phuong Callejas DPM Unavailable [phone] Sy Barrientos MD Unavailable [phone] Russell Moran MD Unavailable Rico Gasca MD Unavailable [phone] Elle Landaverde MD Unavailable Kirk Truong MD Unavailable [phone] Shira Love DO Unavailable [phone] Theresa Camargo MD Unavailable Brooke Haynes [facility] Unavailable [phone] Reason for Visit * Reason Onset Date Comments Update 05/26/2019 Encounter Details Date Type Department Care Team (Late st Contact Info) Description 05/26/2019 Telephone [facility] - Family Medicine [address] [facility] [address] [place] [address] [place] [address] [facility] [address] [place] [address] Update Social History Tobacco Use [...] * Telephone Encounter - Jina Haskins - 05/28/2019 8:58 AM CST Notified Eric OGRAPH INSPECTOR * Telephone Encounter - Theresa Camargo MD - 05/26/2019 12:41 PM CST Have patient take magnesium citrate over the counter. 1/4 bottle now then another 1/4 bottle in 4 hours. If no effect may another 1/4 bottle and last 1/4 bottle. If no effect with one bottle then call office back. OGRAPH INSPECTOR * Telephone Encounter - Dayanara Singh - 05/26/2019 11:48 AM CST Eric called from [facility] states patient has not had a bowel movement in a week but patient is passing gas. Eric called to informed PCP. Patient is taking Miralax but it is not helping. OGRAPH INSPECTOR documented in this encounter Plan of Treatment Not on file documented as of this encounter Goals Goal Patient Goal Type Associated Problems Recent Progress Patient-Stated? 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 8:09 AM PHOTOGRAPH INSPECTOR) No Alisa Jaramillo HEMOGLOBIN A1C < 7.0 Result Component 5.4( 12:00 AM CDT) No Alisa Jaramillo documented as of this encounter Visit Diagnoses Not on filedocumented in this encounter Care Teams Unit Receptionist Relationship Specialty Start [place] [address] [facility] [address] [place] [address] PCP - General Internal Medicine 03/31/18 05/30/22 [place] [address] [facility] [address] [place] [address] PCP - Attributed-MSSP 04/18/19 06/18/19 Brooke Haynes APRN-FRESH FOOD MANAGER [address] [facility] [address] [place] [address] PCP - Attributed-MSSP 06/19/19 07/17/19 Etienne Florez MD Orthopedic Surgery 12/09/14 [place] [address] [place] [address] Oncology 09/15/17 [place] [address] [facility] [address] [address] [place] [address] Neurology 06/26/18 [place] [address] [facility] [address] [place] [address] Cardiovascular Disease 06/26/18 Russell Moran MD [address] [place] [address] Pulmonary Disease 06/26/18 Yuliya Ibarra MD [address] [facility] [address] [place] [address] Endocrinology 06/26/18 Phuong Callejas DPM [address] [place], [place] [address] Podiatry 06/26/18 Sy Barrientos MD [address] [place] [address] [place] [address] Ophthalmology 06/26/18 Russell Moran MD [address] [place] [address] Pulmonary Disease 06/26/18 Rico Gasca MD [address] [facility] [address] [place] [address] Urology 06/26/18 Elle Landaverde MD [address] [facility] [address] [place] [address] Vascular Surgery 06/26/18 Kirk Truong MD [address] [address] Gastroenterology 06/26/18 [place] [address] [facility] [place] [address] General Surgery 06/26/18 documented as of this encounter
--- OUTSIDE RECORDS SUMMARY | 2024-05-26 12:39 | XMS_ITS | Encounter Summary ---
Author Organization [facility] Address [address] [facility] [place] [address] Care Team Providers Care Director Of Vendor Management Name Role Phone Etienne Florez MD Unavailable [phone] Enrique Gonzalez MD Unavailable [phone] Theresa Camargo MD Primary Care Provider [phone] Nelson Ross MD Unavailable [phone] Laz Valencia MD Unavailable Russell Moran MD Unavailable Yuliya Ibarra MD Unavailable Phuong Callejas DPM Unavailable Sy Barrientos MD Unavailable Russell Moran MD Unavailable Rico Gasca MD Unavailable Elle Landaverde MD Unavailable Kirk Truong MD Unavailable Shira Love DO Unavailable [phone] Theresa Camargo MD Unavailable [phone] Reason for Visit * Reason Comments Weakness Encounter Details Date Type Department Care Team (Late st Contact Info) Description 05/06/2019 11:40 AM BUSINESS LIAISON OFFICER Office Visit [facility] Neurosciences [address] [facility] [address] [place] [address] [place] [address] [facility] [address] [place] [address] Familial spastic paraplegia (HCC) (Primary Dx) Social History Tobacco Use Types [...] Sign Reading Time Taken Comments Blood Pressure 122/64 05/06/2019 11:24 AM BUSINESS LIAISON OFFICER Pulse 68 05/06/2019 11:24 AM BUSINESS LIAISON OFFICER Temperature - - Respiratory Rate 14 05/06/2019 11:24 AM BUSINESS LIAISON OFFICER Oxygen Saturation 94% 05/06/2019 11:24 AM BUSINESS LIAISON OFFICER Inhaled Oxygen Concentration - - Weight 78 kg (172 lb) 05/06/2019 11:24 AM BUSINESS LIAISON OFFICER Height 165.1 cm (5' 5 ) 05/06/2019 11:24 AM BUSINESS LIAISON OFFICER Body Mass Index 28.62 05/06/2019 11:24 AM BUSINESS LIAISON OFFICER documented in this encounter Functional Status Functional [...] Instructions * Patient Instructions* Eva Sinha - 05/06/2019 12:13 PM BUSINESS LIAISON OFFICER Call physician if symptoms worsen or with any questions. Take Medications as prescribed. For descriptions of a variety of neurological conditions please visit: [email or web address] NESS LIAISON OFFICER documented in this encounter Progress Notes * Nelson Ross MD - 05/06/2019 11:53 AM CST CC: HSP IH: Was recently in [facility] with falls and low K and edema. Lost 20# in fluid. Now has indwelling catheter. Saw Annie. On Elavil for neuropathic pain at the base of the head. Has a decubitus and visitingnurse follows. Walks with a walker. Outpatient Medications Marked as Taking for the 05/06/19 encounter (Office Visit) with Nelson Ross MD Medication Sig Dispense Refill ??? albuterol HFA (PROAIR HFA) 108 (90 BASE) MCG/ACT inhaler Take 2 Puffs by mouth every 4 hours asneeded. ??? amitriptyline (ELAVIL) 25 MG tablet Take 2 tablets by mouth at bedtime 180 tablet 3 ??? 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 aspirin (ASPIRIN) 81 [...] by mouth once daily. ??? nystatin (MYCOSTATIN) 549008 UNIT/GM powder Apply to affected area 2 [...] Take 240 mg by mouth once daily Review of Systems Constitutional: Negative for chills and fever. Eyes: Positive for blurred vision. Gastrointestinal: Positive for constipation and diarrhea. Genitourinary: Positive for frequency and urgency. Now catheterized Musculoskeletal: Positive for back pain and falls. Neurological: Positive for dizziness. Past Medical History: Diagnosis Date ??? Asthma [...] T1cN0(i-)M0, stage IA. ER pos 97% (strong), MI pos 23% (moderate), Her-2 neg (1+ on [...] diabetes mellitus without complication 01/07/2011 Exam: BP 122/64 Pulse 68 Resp 14 Ht 1.651 m (5' 5 ) Wt 78 kg (172 lb) SpO2 94% BMI 28.62 kg/m2 In WC No bruits FFOV No drift Arms OK Legs power 3/3 Reflexes brisk arms KJ 2/2. AJ 0/0 Distal vib loss ASSESSMENT: HSP Recent hospitalization Indwelling catheter PLAN: Continue therapy Continue current meds 3 month OV Over 25 minutes were spent with the patient face to face. Over fifty percent of this time was spentcounseling and coordination of care. All questions were answered to the patients satisfaction. Discuss recent hospitalization, prognosis and treatment expectations and options NESS LIAISON OFFICER documented in this encounter Plan of Treatment Not on file documented as of this encounter Goals Goal Patient Goal Type Associated Problems Recent Progress Patient-Stated? 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 documented in this encounter Care Teams Director Of Vendor Management Relationship Specialty [place] [address] [address] [place] [address] PCP - General Internal Medicine 03/31/18 05/30/22 [place] [address] [facility] [address] [place], [place] [address] PCP - Attributed-MSSP 04/18/19 06/18/19 Etienne Florez MD Orthopedic Surgery 12/09/14 [place] [address] [facility] [address] [place] [address] Oncology 09/15/17 [place] [address] [facility] [address] [place] [address] Neurology 06/26/18 [place] [address] [facility] [address] [place] [address] Cardiovascular Disease 06/26/18 [place] [address] [id number] Pulmonary Disease 06/26/18 Yuliya Ibarra MD [address] [facility] [address] [place] [address] Endocrinology 06/26/18 Phuong Callejas DPM [address] [place], [place] [address] Podiatry 06/26/18 Sy Barrientos MD [address] [place] [address] Ophthalmology 06/26/18 [place] [address] [address] Pulmonary Disease 06/26/18 Rico Gasca MD [address] [place] [address] Urology 06/26/18 Elle Landaverde MD [address] [place] [address] Vascular Surgery 06/26/18 Kirk Truong MD [address], [place] [address] Gastroenterology 06/26/18 [place] [address] [address] General Surgery 06/26/18 documented as of this encounter
--- OUTSIDE RECORDS SUMMARY | 2024-05-26 12:39 | XMS_ITS | Encounter Summary ---
Author Organization [facility] Address [address] [facility] [place] [address] Care Team Providers Care Supervisor Alum Plant Name Role Phone Etienne Florez MD Unavailable Enrique Gonzalez MD Unavailable [phone] Theresa Camargo MD Primary Care Provider [phone] Nelson Ross MD Unavailable Laz Valencia MD Unavailable Russell Moran MD Unavailable [phone] Yuliya Ibarra MD Unavailable Phuong Callejas DPM Unavailable Sy Barrientos MD Unavailable Russell Moran MD Unavailable Rico Gasca MD Unavailable Elle Landaverde MD Unavailable Kirk Truong MD Unavailable Shira Love DO Unavailable [phone] Encounter Details Date Type Department Care Team (Latest Contact Info) Description 02/26/2019 7:45 AM CDT - 02/26/2019 10:16 AM CDT Hospital Encounter [facility] [address] [place], [place] [id number] [place] [address] [facility] [address] [place] [address] Discharge Disposition: Home or Self Care Social [...] Take 100 mg by mouth once daily albuterol HFA (PROAIR HFA) 108 (90 BASE) MCG/ACT inhaler Take 2 Puffs by mouth every 4 hours as needed. 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 90 tablet 10/08/2018 03/05/2019 calcium carbonate-vitamin D (CALTRATE 600+D) 600-400 MG-UNIT tablet Take 1 tablet by mouth 2 times daily 60 tablet 10/29/2017 06/09/2020 clopidogrel (PLAVIX) 75 MG tablet TAKE 1 TABLET AT BEDTIME 90 tablet 4 01/07/2019 05/01/2020 Cyanocobalamin 1000 MCG Take by mouth once daily. 05/21/2022 empagliflozin (JARDIANCE) 10 MG tablet Take 1 tablet by mouth once daily 90 tablet 02/09/2018 06/09/2020 esomeprazole (NEXIUM) 40 MG capsule Take 1 capsule by mouth once daily 90 capsule 3 06/26/2018 06/04/2019 FLECAINIDE ACETATE PO Take 50 mg by mouth 2 times daily 09/14/2020 furosemide (LASIX) 40 MG tablet Take 1 Tab by mouth once daily 90 Tab 2 12/04/2016 07/03/2020 glimepiride (AMARYL) 1 MG tablet Take 1 Tab by mouth 3 times daily,before breakfast/lunch/bedti me 1.5 tab po with Breakfast, 2 tab with lunch, 2.5 with dinner. 04/13/2019 hydroxypropyl methylcellulose 0.3% (SYSTANE OVERNIGHT THERAPY) 0.3 % ophthalmic gel Instill 1 Drop into both eyes nightly as needed for Dry Eyes 09/14/2020 latanoprost (XALATAN) 0.005 % ophthalmic solution Instill 1 drop into both eyes at bedtime 09/14/2020 levothyroxine (SYNTHROID) 25 MCG tablet Take 25 mcg by mouth daily before breakfast 09/14/2020 lubiprostone (AMITIZA) 24 MCG capsule Take 1 capsule by mouth 2 times daily with morning and evening meal 60 capsule 03/04/2018 03/05/2019 menthol-zinc oxide (CALMOSEPTINE) 0.44-20.6 % ointment Apply to affected area as needed for Other 09/14/2020 metOLazone (ZAROXOLYN) 2.5 MG tablet Take 1 tablet by mouth twice a week on Friday and 05/30/2022 MYRBETRIQ 50 MG tablet Take 25 mg by mouth once daily 06/18/2018 03/30/2020 polyethyl glycol-propyl glycol (SYSTANE) 0.4-0.3 % ophth solution Instill 1 drop into both eyes once as needed 09/14/2020 polyethylene glycol 3350 (MIRALAX) packet Take 17 g by mouth once daily 04/13/2019 potassium chloride ER (KLOR-CON) 10 MEQ tablet TAKE 4 TABLETS WITH BREAKFAST 360 tablet 12/14/2018 03/15/2019 psyllium (METAMUCIL) 58.6 % powderIndications:Cons tipation Take 1 packet by mouth as needed Reasons: Constipation 05/06/2019 rosuvastatin (CRESTOR) 10 MG tablet TAKE 1 TABLET AT BEDTIME 90 tablet 3 10/29/2018 10/06/2019 verapamil SR 24hr (VERELAN) 240 MG capsule Take 240 mg by mouth once daily 11/23/2019 documented as of this encounter Plan of Treatment Not on file documented as of this encounter Goals Goal Patient Goal Type Associated Problems Recent Progress Patient-Stated? 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 8:09 AM PIPING MANAGER) No Alisa Jaramillo HEMOGLOBIN A1C < 7.0 Result Component 5.4( 12:00 AM CDT) No Alisa Jaramillo documented as of this encounter Procedures Procedure Name Priority Date/Time Associated Diagnosis Comments BASIC METABOLIC PANEL (CALCIUM TOTAL) Routine 02/26/2019 10:27 AM CDT Malignant neoplasm of upper-outer quadrant of left breast in female, estrogen receptor positive (HCC) Osteopenia of multiple sites documented in this encounter Results * (ABNORMAL) BASIC METABOLIC PANEL (CALCIUM TOTAL) (02/26/2019 10:27 AM CDT) Glucose 150(H) 70 - 105 mg/dL 02/26/2019 10:57 AM CDT [facility] Sodium 142 136 - 145 mmol/L 02/26/2019 10:57 AM CDT [facility] Potassium 3.4(L) 3.5 - 5.1 mmol/L 02/26/2019 10:57 AM CDT [facility] Chloride 102 98 - 107 mmol/L 02/26/2019 10:57 AM CDT [facility] CO2 34(H) 23 - 31 mmol/L 02/26/2019 10:57 AM CDT [facility] Calcium 10.6(H) 8.4 - 10.2 mg/dL 02/26/2019 10:57 AM CDT [facility] Anion Gap 6(L) 8 - 16 mmol/L 02/26/2019 10:57 AM CDT [facility] BUN 17 9.8 - 20.1 mg/dL 02/26/2019 10:57 AM CDT [facility] Creatinine 0.82 0.57 - 1.11 mg/dL 02/26/2019 10:57 AM CDT [facility] eGFR by MDRD >60 mL/min/1.7 3m2 02/26/2019 10:57 AM CDT [facility] eGFR by MDRD >60 mL/min/1.7 3m2 02/26/2019 10:57 AM CDT [facility] Blood BLOOD SPECIMEN / Unknown Venipuncture / Unknown 02/26/2019 10:27 AM CDT 02/26/2019 10:39 AM CDT Enrique Gonzalez MD LAB - CHEMISTRY ROWAN QUIROZ [facility] [address] [place] [address] documented in this encounter Visit Diagnoses Diagnosis Malignant neoplasm of upper-outer quadrant of left breast in female, estrogen receptor positive (HCC) Osteopenia of multiple sites documented in this encounter Care Teams Supervisor Alum Plant Relationship Specialty Start [place] [address] [facility] [address] [place] [address] PCP - General Internal Medicine 03/31/18 05/30/22 Etienne Florez MD Orthopedic Surgery 12/09/14 [place] [address] [facility] [address] [place] [address] Oncology 09/15/17 [place] [address] [facility] [address] [place] [address] Neurology 06/26/18 [place] [address] [facility] [address] [place] [address] Cardiovascular Disease 06/26/18 Russell Moran MD [address] [place] [address] Pulmonary Disease 06/26/18 Yuliya Ibarra MD [address] [facility] [address] [place] [address] Endocrinology 06/26/18 Phuong Callejas DPM [address] [place] [address] Podiatry 06/26/18 Sy Barrientos MD [address] [place] [address] [place] [address] Ophthalmology 06/26/18 Russell Moran MD [address] [place] [address] Pulmonary Disease 06/26/18 Rico Gasca MD [address] [facility] [address] [place] [address] Urology 06/26/18 Elle Landaverde MD [address] [facility] [address] [place] [address] Vascular Surgery 06/26/18 Kirk Truong MD [address] [facility] [address] [place] [address] Gastroenterology 06/26/18 [place] [address] [place] [address] General Surgery 06/26/18 documented as of this encounter
--- OUTSIDE RECORDS SUMMARY | 2024-05-26 12:39 | XMS_ITS | Encounter Summary ---
Author Organization [facility] Address [address] [facility] [place] [address] Care Team Providers Care Hose Tester Name Role Phone Etienne Florez MD Unavailable Enrique Gonzalez MD Unavailable [phone] Theresa Camargo MD Primary Care Provider Nelson Ross MD Unavailable Laz Valencia MD Unavailable Russell Moran MD Unavailable Yuliya Ibarra MD Unavailable Phuong Callejas DPM Unavailable [phone] Sy Barrientos MD Unavailable Russell Moran MD Unavailable Rico Gasca MD Unavailable [phone] Elle Landaverde MD Unavailable Kirk Truong MD Unavailable [phone] Shira Love DO Unavailable [phone] Reason for Visit * Reason Onset Date Comments Concerns 03/22/2019 Encounter Details Date Type Department Care Team (Late st Contact Info) Description 03/22/2019 Telephone [facility] Health Neurosciences [address] [facility] [address] [place] [address] [place] [address] [facility] [address] [place] [address] Concerns Social History Tobacco Use Types Packs/Day Years [...] Miscellaneous Notes * Telephone Encounter - Nikki Wna - 03/30/2019 9:15 AM CST Spoke with the patient who states the weakness in her legs and has scheduled follow for 04-19-19. L FISHERMAN * Telephone Encounter - Nikki Wan - 03/25/2019 3:16 PM CST Received a call Anette with [facility] [phone] states the patient was discharge from the hospital yesterday and will need a follow up appointment for 1week. Please advise for scheduling. L FISHERMAN * Telephone Encounter - Nikki Wan - 03/22/2019 10:40 AM CST Received a call from the patient who is listed on the HIPAA. States the patient is currently inpatient at [facility] and does not feel the patient is getting the care needed. Patient's daughter would like to speak with you directly. L FISHERMAN documented in this encounter Plan of Treatment Not on file documented as of this encounter Goals Goal Patient Goal Type Associated Problems Recent Progress Patient-Stated? 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 8:09 AM SHELL FISHERMAN) No Alisa Jaramillo HEMOGLOBIN A1C < 7.0 Result Component 5.4( 12:00 AM CDT) No Alisa Jaramillo documented as of this encounter Visit Diagnoses Not on filedocumented in this encounter Care Teams Hose Tester Relationship Specialty [place] [address] [facility] [address] [place] [address] PCP - General Internal Medicine 03/31/18 05/30/22 Etienne Florez MD Orthopedic Surgery 12/09/14 [place] [address] [facility] [address] [place] [address] Oncology 09/15/17 [place] [address] [facility] 100 [place] [address] Neurology 06/26/18 [place] [address] [facility] [address] [place] [address] Cardiovascular Disease 06/26/18 [place] [address] [address] [place] [address] Pulmonary Disease 06/26/18 Yuliya Ibarra MD [address] [place] [address] Endocrinology 06/26/18 Phuong Callejas DPM [address] [place] [address] Podiatry 06/26/18 Sy Barrientos MD [address] [place] [address] [place] [address] Ophthalmology 06/26/18 [place] [address] [id number] Pulmonary Disease 06/26/18 Rico Gasca MD [address] [place] [address] Urology 06/26/18 Elle Landaverde MD [address] [place] [address] Vascular Surgery 06/26/18 Kirk Truong MD [address] [place] [address] Gastroenterology 06/26/18 [place] [address] [place] [address] General Surgery 06/26/18 documented as of this encounter
--- OUTSIDE RECORDS SUMMARY | 2024-05-26 12:39 | XMS_ITS | Encounter Summary ---
Author Organization [facility] Address [address] [facility] [place] [address] Care Team Providers Care Athlete Manager Name Role Phone Etienne Florez MD Unavailable Enrique Gonzalez MD Unavailable [phone] Theresa Camargo MD Primary Care Provider Nelson Ross MD Unavailable [phone] Laz Valencia MD Unavailable Russell Moran MD Unavailable [phone] Yuliya Ibarra MD Unavailable [phone] Phuong Callejas DPM Unavailable Sy Barrientos MD Unavailable Russell Moran MD Unavailable Rico Gasca MD Unavailable [phone] Elle Landaverde MD Unavailable Kirk Truong MD Unavailable Shira Love DO Unavailable [phone] Theresa Camargo MD Unavailable [phone] Reason for Visit * Reason Comments Refill Request Encounter Details Date Type Department Care Team (Late st Contact Info) Description 06/03/2019 Refill [facility] Family Medicine [address] [facility] [address] [place] [address] [place] [address] [facility] [address] [place] [address] Refill Request Social History Tobacco [...] < 140/90 Blood Pressure 127/52(2022 8:09 AM MEDICAID BILLING CLERK) No Alisa Jaramillo HEMOGLOBIN A1C < 7.0 Result Component 5.4( 12:00 AM CDT) No Alisa Jaramillo documented as of this encounter Visit Diagnoses Not on filedocumented in this encounter Care Teams Athlete Manager Relationship Specialty [place] [address] [facility] [address] [place] [address] PCP - General Internal Medicine 03/31/18 05/30/22 [place] [address] [facility] [address] [place] [address] PCP - Attributed-MSSP 04/18/19 06/18/19 Etienne Florez MD Orthopedic Surgery 12/09/14 [place] [address] [facility] [address] [place] [address] Oncology 09/15/17 [place] [address] [facility] [address] [address] [place] [address] Neurology 06/26/18 [place] [address] [facility] [address] [place] [address] Cardiovascular Disease 06/26/18 [place] [address] [address] Pulmonary Disease 06/26/18 Yuliya Ibarra MD [address] [facility] [address] [place] [address] Endocrinology 06/26/18 Phuong Callejas DPM [address] [place], [place] [address] Podiatry 06/26/18 Sy Barrientos MD [address] [facility] [place] [address] Ophthalmology 06/26/18 [place] [address] [address] Pulmonary Disease 06/26/18 Rico Gsaca MD [address] [address] Urology 06/26/18 Elle Landaverde MD [address] [address] Vascular Surgery 06/26/18 Kirk Truong MD [address] [address] Gastroenterology 06/26/18 [place] [address] [facility] [address] [place] [address] General Surgery 06/26/18 documented as of this encounter
--- OUTSIDE RECORDS SUMMARY | 2024-05-26 12:39 | XMS_ITS | Encounter Summary ---
Author Organization [facility] Address [address] [facility] [place] [address] Care Team Providers Care Brazer Resistance Name Role Phone Etienne Florez MD Unavailable Enrique Gonzalez MD Unavailable [phone] Theresa Camargo MD Primary Care Provider [phone] Nelson Ross MD Unavailable Laz Valencia MD Unavailable Russell Moran MD Unavailable Yuliya Ibarra MD Unavailable [phone] Phuong Callejas DPM Unavailable [phone] Sy Barrientos MD Unavailable Russell Moran MD Unavailable Rico Gasca MD Unavailable Elle Landaverde MD Unavailable [phone] Kirk Truong MD Unavailable [phone] Shira Love DO Unavailable [phone] Theresa Camargo MD Unavailable [phone] Reason for Visit * Reason Onset Date Comments Care Management 05/13/2019 Encounter Details Date Type Department Care Team (Late st Contact Info) Description 05/13/2019 Telephone [facility] [address] [place] [address], [address] [address] Hussain Norris MD [address] [place] [address] [address] [place] [address] Care Management Social History Tobacco Use Types [...] * Telephone Encounter - Laisha Diaz - 05/13/2019 11:01 AM CST Spoke with HHN and ordered a urine culture and at home monthly cath changes. They will send a script for Dr. Norris to sign. NG ROOM SUPERVISOR * Telephone Encounter - Laisha Diaz - 05/13/2019 10:41 AM CST LM for HHN to call office NG ROOM SUPERVISOR * Telephone Encounter - Roque Beasleymolly Bray - 05/13/2019 10:01 AM CST Patient's home health nurse, Eric, called stating that patient had her cath changed on March and has finished her Augmentin. Patient is having cloudy urine and burning around the cath site. Eric would like to know what you would like the patient to do. Eric's # and pt # NG ROOM SUPERVISOR documented in this encounter Plan of Treatment Not on file documented as of this encounter Goals Goal Patient Goal Type Associated Problems Recent Progress Patient-Stated? 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 8:09 AM DINING ROOM SUPERVISOR) No Alisa Jaramillo HEMOGLOBIN A1C < 7.0 Result Component 5.4( 12:00 AM CDT) No Alisa Jaramillo documented as of this encounter Visit Diagnoses Not on filedocumented in this encounter Care Teams Brazer Resistance Relationship Specialty [place] [address] [facility] [address] [place] [address] PCP - General Internal Medicine 03/31/18 05/30/22 [place] [address] [facility] [address] [place] [address] PCP - Attributed-MSSP 04/18/19 06/18/19 Etienne Florez MD Orthopedic Surgery 12/09/14 [place] [address] [facility] [address] [place] [address] Oncology 09/15/17 [place] [address] [facility] 100 [place] [address] Neurology 06/26/18 [place] [address] [facility] [address] [place] [address] Cardiovascular Disease 06/26/18 [place] [address] [address] [place] [address] Pulmonary Disease 06/26/18 Yuliya Ibarra MD [address] [facility] [address] [place] [address] Endocrinology 06/26/18 Phuong Callejas DPM [address] [place], [place] [address] Podiatry 06/26/18 Sy Barrientos MD [address] [place] [address] [place] [address] Ophthalmology 06/26/18 [place] [address] [address] [place] [address] Pulmonary Disease 06/26/18 Rico Gasca MD [address] [facility] [address] [place] [address] Urology 06/26/18 Elle Landaverde MD [address] [facility] [address] [place] [address] Vascular Surgery 06/26/18 Kirk Truong MD [address] [place] [address] [address] [place] [address] Gastroenterology 06/26/18 [place] [address] [facility] [address] [address] General Surgery 06/26/18 documented as of this encounter
--- OUTSIDE RECORDS SUMMARY | 2024-05-26 12:39 | XMS_ITS | Encounter Summary ---
Author Organization [facility] Address [address] [place] [address] Care Team Providers Care Digital Media Analyst Name Role Phone Etienne Florez MD Unavailable [phone] Enrique Gonzalez MD Unavailable [phone] Theresa Camargo MD Primary Care Provider [phone] Nelson Ross MD Unavailable [phone] Laz Valencia MD Unavailable Russell Moran MD Unavailable Yuliya Ibarra MD Unavailable Phuong Callejas DPM Unavailable Sy Barrientos MD Unavailable Russell Moran MD Unavailable Rico Gasca MD Unavailable [phone] Elle Landaverde MD Unavailable Kirk Truong MD Unavailable [phone] Shira Love DO Unavailable [phone] Theresa Camargo MD Unavailable [phone] Reason for Visit * Reason Onset Date Comments Order 04/30/2019 Encounter Details Date Type Department Care Team (Late st Contact Info) Description 04/30/2019 Telephone [facility] [address] [facility] [address] [place] [address] [place] [address] [facility] [address] [place] [address] Order Social History Tobacco Use [...] * Telephone Encounter - Jina Haskins - 04/30/2019 3:59 PM CST Verbal ok per Dr. Camargo DREN'S TUTOR NURSERY * Telephone Encounter - Rachel Estrada - 04/30/2019 3:37 PM CST [facility] is calling stating they are using DuoDerm and want to use foam instead. DREN'S TUTOR NURSERY documented in this encounter Plan of Treatment Not on file documented as of this encounter Goals Goal Patient Goal Type Associated Problems Recent Progress Patient-Stated? 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 8:09 AM CHILDREN'S TUTOR NURSERY) No Alisa Jaramillo HEMOGLOBIN A1C < 7.0 Result Component 5.4( 12:00 AM CDT) No Alisa Jaramillo documented as of this encounter Visit Diagnoses Not on filedocumented in this encounter Care Teams Digital Media Analyst Relationship Specialty Start [place] [address] [facility] [address] [place] [address] PCP - General Internal Medicine 03/31/18 05/30/22 [place] [address] [facility] [address] [place] [address] PCP - Attributed-MSSP 04/18/19 06/18/19 Etienne Florez MD Orthopedic Surgery 12/09/14 [place] [address] [facility] [address] [place] [address] Oncology 09/15/17 [place] [address] [facility] [address] [place] [address] Neurology 06/26/18 [place] [address] [phone] Cardiovascular Disease 06/26/18 [place] [address] [address] Pulmonary Disease 06/26/18 Yuliya Ibarra MD [address] [place] [address] Endocrinology 06/26/18 Phuong Callejas DPM [address] [place], [place] [address] Podiatry 06/26/18 Sy Barrientos MD [address] [place] [address] [place] [address] Ophthalmology 06/26/18 [place] [address] [id number] Pulmonary Disease 06/26/18 Rico Gasca MD [address] [facility] [address] [place] [address] Urology 06/26/18 Elle Landaverde MD [address] [facility] [address] [place] [address] Vascular Surgery 06/26/18 Kirk Truong MD [address] [facility] [address] [place] [address] Gastroenterology 06/26/18 [place] [address] [place] [address] General Surgery 06/26/18 documented as of this encounter
--- OUTSIDE RECORDS SUMMARY | 2024-05-26 12:39 | XMS_ITS | Encounter Summary ---
Author Organization [facility] Address [address] [place] [address] Care Team Providers Care Environmental Programs Manager Name Role Phone Etienne Florez MD Unavailable Enrique Gonzalez MD Unavailable [phone] Theresa Camargo MD Primary Care Provider [phone] Nelson Ross MD Unavailable Laz Valencia MD Unavailable Russell Moran MD Unavailable Yuliya Ibarra MD Unavailable Phuong Callejas DPM Unavailable [phone] Sy Barrientos MD Unavailable Russell Moran MD Unavailable Rico Gasca MD Unavailable Elle Landaverde MD Unavailable [phone] Kirk Truong MD Unavailable [phone] Shira Love DO Unavailable [phone] Theresa Camargo MD Unavailable [phone] Reason for Visit * Reason Onset Date Comments Question 04/23/2019 Encounter Details Date Type Department Care Team (Late st Contact Info) Description 04/23/2019 Telephone [facility] - Family Medicine [address] [facility] [address] [place] [address] [place] [address] [facility] [address] [place] [address] Question Social History Tobacco Use [...] * Telephone Encounter - Rachel Estrada - 04/26/2019 4:40 PM CST Eric was notified. R COLORER * Telephone Encounter - Theresa Camargo MD - 04/26/2019 3:18 PM CST She can get magnesium citrate. Take 1/4 of the bottle every 6 hours until it has an effect. R COLORER * Telephone Encounter - Wanda Castro - 04/26/2019 2:50 PM CST Eric states pt tried both options and neither have worked. She had bowel sounds but she still hasn't had a movement. Reports pt denies other symptoms such as pain and nausea. R COLORER * Telephone Encounter - Jina Haskins - 04/23/2019 3:10 PM CST Notified Eric.. R COLORER * Telephone Encounter - Theresa Camargo MD - 04/23/2019 12:30 PM CST Have her take senokot otc one tab today and one tomorrow. If still no effect, then try miralax otc.One scoop in 8 ounce water- one dose on Friday. Call back next week if neither options work. R COLORER * Telephone Encounter - Wanda Castro - 04/23/2019 11:26 AM CST AW HH states pt has not made a bowel movement all week. Please advise. Pt is taking meta mucil R COLORER documented in this encounter Plan of Treatment Not on file documented as of this encounter Goals Goal Patient Goal Type Associated Problems Recent Progress Patient-Stated? 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 8:09 AM PAPER COLORER) No Alisa Jaramillo HEMOGLOBIN A1C < 7.0 Result Component 5.4( 12:00 AM CDT) No Alisa Jaramillo documented as of this encounter Visit Diagnoses Not on filedocumented in this encounter Care Teams Environmental Programs Manager Relationship Specialty Start [place] [address] [address] PCP - General Internal Medicine 03/31/18 05/30/22 [place] [address] [facility] [address] [address] [place] [address] PCP - Attributed-MSSP 04/18/19 06/18/19 Etienne Florez MD Orthopedic Surgery 12/09/14 [place] [address] [facility] [address] [address] [place] [address] Oncology 09/15/17 [place] [address] [facility] [place] [address] Neurology 06/26/18 [place] [address] [facility] [address] [place] [address] Cardiovascular Disease 06/26/18 [place] [address] [id number] Pulmonary Disease 06/26/18 Yuliya Ibarra MD [address] [facility] [address] [place] [address] Endocrinology 06/26/18 Phuong Callejas DPM [address] [place], [place] [address] Podiatry 06/26/18 Sy Barrientos MD [address] [place] [address] Ophthalmology 06/26/18 [place] [address] [address] Pulmonary Disease 06/26/18 Rico Gasca MD [address] [facility] [address] [facility] [address] [place] [address] Urology 06/26/18 Elle Landaverde MD [address] [facility] [facility] [address] [place] [address] Vascular Surgery 06/26/18 Kirk Truong MD [address] [facility] [address] [place] [address] Gastroenterology 06/26/18 [place] [address] [address] [facility] [address] [place] [address] General Surgery 06/26/18 documented as of this encounter
--- OUTSIDE RECORDS SUMMARY | 2024-05-26 12:39 | XMS_ITS | Encounter Summary ---
Author Organization [facility] Address [address] [facility] [place] [address] Care Team Providers Care Plater Barrel Name Role Phone Etienne Florez MD Unavailable Enrique Gonzalez MD Unavailable [phone] Theresa Camargo MD Primary Care Provider [phone] Nelson Ross MD Unavailable [phone] Laz Valencia MD Unavailable Russell Moran MD Unavailable Yuliya Ibarra MD Unavailable [phone] Phuong Callejas DPM Unavailable Sy Barrientos MD Unavailable [phone] Russell Moran MD Unavailable [phone] Rico Gasca MD Unavailable [phone] Elle Landaverde MD Unavailable [phone] Kirk Truong MD Unavailable Shira Love DO Unavailable [phone] Reason for Visit * Reason Onset Date Comments Question 01/14/2019 Encounter Details Date Type Department Care Team (Late st Contact Info) Description 01/14/2019 Telephone [facility] Health Neurosciences [address] [facility] [address] [place] [address] [place] [address] [facility] [address] [place] [address] Question Social History Tobacco Use [...] Miscellaneous Notes * Telephone Encounter - Laisha Swift MA - 01/15/2019 12:12 PM CDT Returned pt call and informed pt of your response. Pt expressed understanding and was given Dr. Spring contact number [phone]. * Telephone Encounter - Laisha Swift MA - 01/15/2019 12:12 PM CDT Images from the original note were not included. Nelson Ross MD You 19 hours ago (4:33 PM) Saúl Spring Routing comment * Telephone Encounter - Laisha Swift MA - 01/14/2019 2:08 PM CDT Pt called stating on her last OV you discussed referring her to pain management. If okay, what physician would you refer the pt to? Please advise. documented in this encounter Plan of Treatment Not on file documented as of this encounter Goals Goal Patient Goal Type Associated Problems Recent Progress Patient-Stated? 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 8:09 AM PLANER FEEDER) No Alisa Jaramillo HEMOGLOBIN A1C < 7.0 Result Component 5.4( 12:00 AM CDT) No Alisa Jaramillo documented as of this encounter Visit Diagnoses Not on filedocumented in this encounter Care Teams Plater Barrel Relationship Specialty Start [place] [address] [facility] [address] [place], [place] [address] PCP - General Internal Medicine 03/31/18 05/30/22 Etienne Florez MD Orthopedic Surgery 12/09/14 [place] [address] [facility] [address] [place] [address] Oncology 09/15/17 [place] [address] [facility] [address] [place] [address] Neurology 06/26/18 [place] [address] [facility] [address] [place] [address] Cardiovascular Disease 06/26/18 [place] [address] [address] Pulmonary Disease 06/26/18 Yuliya Ibarra MD [address] [place] [address] Endocrinology 06/26/18 Phuong Callejas DPM [address] [place], [place] [address] Podiatry 06/26/18 Sy Barrientos MD [address] [place] [address] [place] [address] Ophthalmology 06/26/18 Russell Moran MD [address] [place] [address] Pulmonary Disease 06/26/18 Rico Gasca MD [address] [facility] [address] [place] [address] Urology 06/26/18 Elle Landaverde MD [address] [facility] [address] [place] [address] Vascular Surgery 06/26/18 Kirk Truong MD [address] [facility] [address] [place] [address] Gastroenterology 06/26/18 [place] [address] [address] [place] [address] General Surgery 06/26/18 documented as of this encounter
--- OUTSIDE RECORDS SUMMARY | 2024-05-26 12:39 | XMS_ITS | Encounter Summary ---
Author Organization [facility] Address [address] [place] [address] Care Team Providers Care [employer] Driver Name Role Phone Etienne Florez MD Unavailable [phone] Enrique Gonzalez MD Unavailable [phone] Theresa Camargo MD Primary Care Provider [phone] Nelson Ross MD Unavailable Laz Valencia MD Unavailable Russell Moran MD Unavailable Yuliya Ibarra MD Unavailable [phone] Phuong Callejas DPM Unavailable [phone] Sy Barrientos MD Unavailable Russell Moran MD Unavailable [phone] Rico Gasca MD Unavailable [phone] Elle Landaverde MD Unavailable Kirk Truong MD Unavailable [phone] Shira Love DO Unavailable [phone] Reason for Visit * Oncology Prior Authorization (Routine) - Closed Specialty Diagnoses / Procedures Referred By Alejandrina vale Referred To Contact Diagnoses Malignant neoplasm of upper-outer quadrant of left breast in female, estrogen receptor positive (HCC) Osteopenia of multiple sites Aromatase inhibitor use Procedures ONCOLOGY MEDICATION AUTH COMMUNICATION Enrique Gonzalez MD [address] [place] [phone] [facility] [address] [place] [address] Referral ID Status Reason Start Date Expiration Date Visits Re quested Visits Authorized [id number] Closed 10/29/2017 05/18/2023 1 99 Encounter Details Date Type Department Care Team (Latest Contact Info) Description 02/26/2019 10:17 AM CDT - 02/26/2019 11:59 PM CDT Hospital Encounter Infusion Services at [address] [address] Enrique Gonzalez MD [address] [place] [phone] Discharge Disposition: Home or Self Care [...] daily 11/23/2019 documented as of this encounter Progress Notes * Eneida Tay RN - 02/26/2019 12:17 PM CDT Perla Leon was seen at [facility] on 02/26/2019 for a Prolia injection Patient tolerated treatment well without incident. MEDICATIONS FOR CURRENT ENCOUNTER: ?? SCHEDULED MEDICATIONS: ?? [COMPLETED] denosumab (PROLIA) SC injection SOLN 60 mg, Subcutaneous, Once documented in this encounter Plan of Treatment Not on file documented as of this encounter Goals Goal Patient Goal Type Associated Problems Recent Progress Patient-Stated? 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 8:09 AM [employer] SALES CONSULTANT) No Alisa Jaramillo HEMOGLOBIN A1C < [...] 60 mg, Subcutaneous, ONCE, 1 dose, On Fri02/26/19 at 1115 $ Given 02/26/2019 11:16 AM CDT 60 mg Abdominal Tissue documented in this encounter Care Teams [employer] Driver Relationship Specialty [place] [address] [address] [place], [place] [id number] PCP - General Internal Medicine 03/31/18 05/30/22 Etienne Florez MD Orthopedic Surgery 12/09/14 [place] [address] [address] [place] [phone] Oncology 09/15/17 [place] [address] [facility] [address] [place] [address] Neurology 06/26/18 [place] [address] [facility] [address] [place] [phone] Cardiovascular Disease 06/26/18 [place] [address] [address] Pulmonary Disease 06/26/18 Yuliya Ibarra MD [address] [facility] [address] [place] [phone] Endocrinology 06/26/18 Phuong Callejas DPM [address] [place], [place] [id number] Podiatry 06/26/18 Sy Barrientos MD [address] [place] [address] [place] [address] Ophthalmology 06/26/18 [place] [address] [address] Pulmonary Disease 06/26/18 Rico Gasca MD [address] [facility] [address] [place] [address] Urology 06/26/18 Elle Landaverde MD [address] [facility] [address] [place] [address] Vascular Surgery 06/26/18 Kirk Truong MD [address] [facility] [address] [place] [address] Gastroenterology 06/26/18 [place] [address] [facility] [address] [address] General Surgery 06/26/18 documented as of this encounter
--- OUTSIDE RECORDS SUMMARY | 2024-05-26 12:39 | XMS_ITS | Encounter Summary ---
Author Organization [facility] Address [address] [address] Care Team Providers Care Emts Name Role Phone Etienne Florez MD Unavailable Enrique Gonzalez MD Unavailable [phone] Theresa Camargo MD Primary Care Provider [phone] Nelson Ross MD Unavailable Laz Valencia MD Unavailable Russell Moran MD Unavailable Yuliya Ibarra MD Unavailable Phuong Callejas DPM Unavailable Sy Barrientos MD Unavailable [phone] Russell Moran MD Unavailable [phone] Rico Gasca MD Unavailable [phone] Elle Landaverde MD Unavailable [phone] Kirk Truong MD Unavailable Shira Love DO Unavailable [phone] Reason for Visit * Reason Comments Follow-up Encounter Details Date Type Department Care Team (Travon schmitt Contact Info) Description 04/13/2019 2:40 PM ACCOUNTS RECEIVABLE BOOKKEEPER Office Visit [facility] [address] [facility] [address] [place] [address] Asha Narvaez, FLEXOGRAPHIC PRESS HELPER-ADMINISTRATIVE MEDICAL DIRECTOR [address] [facility] [address] [place] [address] Glucose found in urine on examination (Primary Dx); Pressure injury of right buttock, stage 2 (HCC); Jan infection Social History Tobacco Use Types Packs/Day Years [...] Reading Time Taken Comments Blood Pressure 110/60 04/13/2019 2:57 PM ACCOUNTS RECEIVABLE BOOKKEEPER Pulse 60 04/13/2019 2:57 PM ACCOUNTS RECEIVABLE BOOKKEEPER Temperature 36.7 ??C (98 ??F) 04/13/2019 2:57 PM ACCOUNTS RECEIVABLE BOOKKEEPER Respiratory Rate - - Oxygen Saturation 93% 04/13/2019 2:57 PM ACCOUNTS RECEIVABLE BOOKKEEPER Inhaled Oxygen Concentration - - Weight 79.8 kg (176 lb) 04/13/2019 2:57 PM ACCOUNTS RECEIVABLE BOOKKEEPER Height 165.1 cm (5' 5 ) 04/13/2019 2:57 PM ACCOUNTS RECEIVABLE BOOKKEEPER Body Mass Index 29.29 04/13/2019 2:57 PM ACCOUNTS RECEIVABLE BOOKKEEPER documented in this encounter Functional Status Functional [...] * Patient Instructions* Asha Narvaez APRN-CNP - 04/13/2019 3:43 PM ACCOUNTS RECEIVABLE BOOKKEEPER Please contact your heel seat trimmer and ask to be restarted on insulin until you can get your bloodsugars back down. Continue fluconazole. Please continue to apply nystatin powder to th groin and buttocks around the rectum. Ulcer needs tostay dry. Please change your depend if there is any moisture. Put pillows under your sides and rotate positions while in the chair. For your Diabetes: -Check sugars twice daily and record them, your goal is to be 80-120 if fasting and less [id number] two hours after a meal -Check feet daily for sores, drying, cracking and use daily moisturizer if needed and invest in good shoes -Follow-up with your eye doctor yearly and request them to send a report -Continue to watch your diet, especially carbs (breads, pastas, rice, potatoes, and sweets) and tryto eat low salt, low fat, and high fiber. Go to www.diabetes.org and select food&fitness tab. -Focus on weight loss if your BMI is greater than 25 -Check blood pressure, goal of less than 140/90 but better if 130/80. -Walk at least 20 min/day and preferably get 30 min of high intensity exercise 5 days a week, this also keeps your heart healthy. The [employer] recommends all adults get a minimum of 150 minutes of moderate physical activity a week. This can be completed as 30 minutes of brisk walking on most days of the week. Even 10 minutes of exercise a day can provide benefit and will add up over the week. If able, try to take the stairs instead of the elevator or park father away in the parking lot. Start slowand try to increase your amount of activity over several weeks. Exercise will help to improve your cholesterol readings and blood pressure and to be overall healthy UNTS RECEIVABLE BOOKKEEPER documented in this encounter Progress Notes * Asha Narvaez APRN-CNP - 04/13/2019 3:11 PM CST Perla Leon is a 78 year old female here for: Chief Complaint Patient presents with ??? Follow-up SUBJECTIVE: Patient went to urology for a blockage of her urinary catheter. She was noted to have a possible pressure ulcer and possible fungal infection during this time. She also had a UA done and was told that she has 3+ glucose in her urine. Patient does report increased thirst that has been worsening. There is no increased hunger. She admits to not eating a diabetic diet as she had been in the past whenher daughter was managing what she ate. Her last meal today was around noon. She had chicken and vegetables. Her breakfast was a sausage egg and cheese sandwich. Her last hemoglobin A1c was 6.4 last month. She is not taking insulin at this time. Her blood sugars have been managed with oral medications by her heel seat trimmer at [facility]. Patient sits in a chair all day. She does not sleep in a bed. Prior to receiving a urinary catheter, she was wet all of the time due to urinary incontinence. She states that sometimes she would leaveher depends on and not change them for a little while. She does report having pain when sitting on her bottom. Past Medical History: Diagnosis Date ??? Asthma [...] T1cN0(i-)M0, stage IA. ER pos 97% (strong), OR pos 23% (moderate), Her-2 neg (1+ on [...] TABLET AT BEDTIME 90 tablet 4 ??? Cyanocobalamin (B-12) 1000 MCG TBCR Take by mouth once daily. ??? empagliflozin (JARDIANCE) 10 MG tablet Take 1 tablet by mouth once daily 90 tablet 0 ??? esomeprazole (NEXIUM) 40 MG capsule Take 1 capsule by mouth once daily 90 capsule 3 ??? FLECAINIDE ACETATE PO Take 50 mg by mouth 2 times daily ??? fluconazole (DIFLUCAN) 150 MG tablet Once /week for 4 weeks. 4 tablet 0 ??? furosemide (LASIX) 40 MG tablet Take 1 Tab by mouth once daily 90 Tab 2 ??? hydroxypropyl methylcellulose 0.3% (SYSTANE OVERNIGHT THERAPY) [...] by mouth once daily ??? nystatin (MYCOSTATIN) 342694 UNIT/GM powder Apply to affected area 2 times daily 60 g 0 ??? polyethyl glycol-propyl glycol (SYSTANE) 0.4-0.3 % ophth solution Instill 1 drop into both eyesonce as needed ??? potassium chloride ER (KLOR-CON) 10 MEQ tablet TAKE 4 TABLETS WITH BREAKFAST 360 tablet 1 ??? PROLENSA 0.07 % opthalmic solution PUT 1 DROP INTO RIGHT EYE TWICE A DAY 2 ??? psyllium (METAMUCIL) 58.6 % powder Take 1 packet by mouth as needed Reasons: Constipation ??? rosuvastatin (CRESTOR) 10 MG tablet TAKE 1 TABLET AT BEDTIME 90 tablet 3 ??? sitaGLIPtin (JANUVIA) 50 MG tablet Take 100 mg by mouth once daily ??? verapamil SR 24hr (VERELAN) 240 MG capsule Take 240 mg by mouth once daily No current facility-administered [...] Not on file Occupational History ??? 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 Financial resource strain: Not on file ??? Food insecurity: Worry: Not on file Inability: Not on file ??? Transportation needs: Medical: Not on file Non-medical: Not on file Tobacco Use ??? Smoking status: Never Smoker ??? Smokeless tobacco: Never Used Substance and Sexual Activity ??? Alcohol use: No Alcohol/week: 0.0 standard drinks ??? Drug use: No ??? Sexual activity: Not on file Lifestyle ??? Physical activity: Days per week: Not on file Minutes per session: Not on file ??? Stress: Not on file Relationships ??? Social connections: Talks on phone: Not on file Gets together: Not on file Attends advent service: Not on file Active member of club or organization: Not on file Attends meetings of clubs or organizations: Not on file Relationship status: Not on file ??? Intimate partner violence: Fear of current or ex partner: Not [...] Not on file Family History Problem Relation Age of Onset ??? Cancer - Breast Mother ??? Coronary Artery Disease Father CHF ??? Coronary Artery Disease Brother CHF Current Outpatient Medications Medication Sig [...] TABLET AT BEDTIME 90 tablet 4 ??? Cyanocobalamin (B-12) 1000 MCG TBCR Take by mouth once daily. ??? empagliflozin (JARDIANCE) 10 MG tablet Take 1 tablet by mouth once daily 90 tablet 0 ??? esomeprazole (NEXIUM) 40 MG capsule Take 1 capsule by mouth once daily 90 capsule 3 ??? FLECAINIDE ACETATE PO Take 50 mg by mouth 2 times daily ??? fluconazole (DIFLUCAN) 150 MG tablet Once /week for 4 weeks. 4 tablet 0 ??? furosemide (LASIX) 40 MG tablet Take 1 Tab by mouth once daily 90 Tab 2 ??? hydroxypropyl methylcellulose 0.3% (SYSTANE OVERNIGHT THERAPY) [...] by mouth once daily ??? nystatin (MYCOSTATIN) 258772 UNIT/GM powder Apply to affected area 2 times daily 60 g 0 ??? polyethyl glycol-propyl glycol (SYSTANE) 0.4-0.3 % ophth solution Instill 1 drop into both eyesonce as needed ??? potassium chloride ER (KLOR-CON) 10 MEQ tablet TAKE 4 TABLETS WITH BREAKFAST 360 tablet 1 ??? PROLENSA 0.07 % opthalmic solution PUT 1 DROP INTO RIGHT EYE TWICE A DAY 2 ??? psyllium (METAMUCIL) 58.6 % powder Take 1 packet by mouth as needed Reasons: Constipation ??? rosuvastatin (CRESTOR) 10 MG tablet TAKE 1 TABLET AT BEDTIME 90 tablet 3 ??? sitaGLIPtin (JANUVIA) 50 MG tablet Take 100 mg by mouth once daily ??? verapamil SR 24hr (VERELAN) 240 MG capsule Take 240 mg by mouth once daily No current facility-administered medications for this visit. Allergies Allergen Reactions ??? Advair Diskus YEAS INFECTION ??? Aricept [Donepezil] Other I dont remember ??? Diltiazem Swelling ??? Metformin Diarrhea ??? Fluticasone Diarrhea ??? Piper Longum ??? Salmeterol Diarrhea ??? Sotalol Other Hair loss REVIEW OF SYSTEMS: ROS Negative, except as noted above in HPI. OBJECTIVE: General appearance: alert, well appearing, and in no distress. BP 110/60 (BP SITE: LEFT ARM, BP POSITION: SITTING, BP CUFF SIZE: 12) Pulse 60 Temp 98 ??F (36.7 ??C) (Oral) Ht 1.651 m (5' 5 ) Wt 79.8 kg (176 lb) SpO2 93% BMI 29.29 kg/m2 Body mass index is 29.29 kg/m??. Physical Exam Vitals reviewed. General appearance [...] nondistended, no masses or hepatosplenomegaly Extremities - Steady gait, full range of motion, no clubbing nor cyanosis. Skin - warm, Right groin: moist, erythematous, mild excoriation, no drainage present, skin consistent with jan. Buttocks/ area surrounding rectum: erythematous, moist, consistent with jan Right buttocks with small ulceration, wound base white/yellow slough. Surrounding skin erythematous, skin is blanchable. ASSESSMENT: Office Visit on 04/13/19 GLUCOSE - POINT OF CARE (AMB) STL Result Value Ref Range Glucose 227 (Abnormal) 60 - 100 mg/dL Lot # 0 Expiration Date 01/21/2020 QC Verified Yes Yes Encounter Diagnoses Name Primary? Glucose found in urine on examination Yes ??? Pressure injury of right buttock, stage 2 ??? Jan infection PLAN: Orders Placed This Encounter ??? GLUCOSE - POINT OF CARE (AMB) STL Blood glucose 227 in office. Last meal was approximately 3+ hours prior to office visit. Please contact your heel seat trimmer and ask to be restarted on insulin until you can get your bloodsugars back down. Continue fluconazole. Please continue to apply nystatin powder to the groin and buttocks around the rectum. Ulcer needs to stay dry. Please change your depend if there is any moisture. Put pillows under your sides and rotate positions while in the chair. For your Diabetes: -Check sugars twice daily and record them, your goal is to be 80-120 if fasting and less [id number] two hours after a meal -Check feet daily for sores, drying, cracking and use daily moisturizer if needed and invest in good shoes -Follow-up with your eye doctor yearly and request them to send a report -Continue to watch your diet, especially carbs (breads, pastas, rice, potatoes, and sweets) and tryto eat low salt, low fat, and high fiber. Go to www.diabetes.org and select food&fitness tab. -Focus on weight loss if your BMI is greater than 25 -Check blood pressure, goal of less than 140/90 but better if 130/80. -Walk at least 20 min/day and preferably get 30 min of high intensity exercise 5 days a week, this also keeps your heart healthy. The [employer] recommends all adults get a minimum of 150 minutes of moderate physical activity a week. This can be completed as 30 minutes of brisk walking on most days of the week. Even 10 minutes of exercise a day can provide benefit and will add up over the week. If able, try to take the stairs instead of the elevator or park father away in the parking lot. Start slowand try to increase your amount of activity over several weeks. Exercise will help to improve your cholesterol readings and blood pressure and to be overall healthy Further recommendations pending the above results and patient's clinical course. Follow-up visit 2 weeks with PCP or heel seat trimmer The patient indicates understanding of these issues and agrees with the plan. UNTS RECEIVABLE BOOKKEEPER documented in this encounter Plan of Treatment Not on file documented as of this encounter Goals Goal Patient Goal Type Associated Problems Recent Progress Patient-Stated? 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 8:09 AM ACCOUNTS RECEIVABLE BOOKKEEPER) No Alisa Jaramillo HEMOGLOBIN A1C < 7.0 Result Component 5.4( 12:00 AM CDT) No Alisa Jaramillo documented as of this encounter Procedures Procedure Name Priority Date/Time Associated Diagnosis Comments GLUCOSE - POINT OF CARE (AMB) STL Routine 04/13/2019 Glucose found in urine on examination documented in this encounter Results * (ABNORMAL) GLUCOSE - POINT OF CARE (AMB) STL (04/13/2019) Glucose 227(A) 60 - 100 mg/dL Lot # 0 Expiration Date 01/21/2020 QC Verified Yes Yes Blood BLOOD SPECIMEN / Unknown 04/13/2019 [facility] - POINT OF C ARE ORDERABLES documented in this encounter Visit Diagnoses Diagnosis Glucose found in urine on examination- Primary Glycosuria Pressure injury of right buttock, stage 2 (HCC) Jan infection Candidiasis of unspecified site documented in this encounter Care Teams Emts Relationship Specialty Start [place] [address] [email or web address] [address] [place], [place] [phone] PCP - General Internal Medicine 03/31/18 05/30/22 Etienne Florez MD Orthopedic Surgery 12/09/14 [place] [address] [address] [place] [phone] Oncology 09/15/17 [place] [address] [facility] [address] [place] [phone] Neurology 06/26/18 [place] [address] [facility] [address] [place] [address] Cardiovascular Disease 06/26/18 [place] [address] [id number] Pulmonary Disease 06/26/18 Yuliya Ibarra MD [address] [facility] [address] [place] [phone] Endocrinology 06/26/18 Phuong Callejas DPM [address] [place], [place] [phone] Podiatry 06/26/18 Sy Barrientos MD [address] [place] [address] [place] [address] Ophthalmology 06/26/18 [place] [address] [place] [address] Pulmonary Disease 06/26/18 Rico Gasca MD [address] [facility] [address] [place] [address] Urology 06/26/18 Elle Landaverde MD [address] [facility] [address] [place] [address] Vascular Surgery 06/26/18 Kirk Truong MD [address] [facility] [address] [place] [address] Gastroenterology 06/26/18 [place] [address] [address] General Surgery 06/26/18 documented as of this encounter
--- OUTSIDE RECORDS SUMMARY | 2024-05-26 12:39 | XMS_ITS | Encounter Summary ---
Author Organization [facility] Address [address] [place] [address] Care Team Providers Care Associate Professor Of Forestry Name Role Phone Etienne Florez MD Unavailable Enrique Gonzalez MD Unavailable [phone] Theresa Camargo MD Primary Care Provider Nelson Ross MD Unavailable Laz Valencia MD Unavailable Russell Moran MD Unavailable Yuliya Ibarra MD Unavailable Phuong Callejas DPM Unavailable [phone] Sy Barrientos MD Unavailable Russell Moran MD Unavailable Rico Gasca MD Unavailable [phone] Elle Landaverde MD Unavailable Kirk Truong MD Unavailable [phone] Shira Love DO Unavailable [phone] Reason for Visit * Reason Comments Follow-up Encounter Details Date Type Department Care Team (Late st Contact Info) Description 02/26/2019 10:20 AM CDT Office Visit [facility] [address] [place] [address] Enrique [place] [id number] [place] [address] Malignant neoplasm of upper-outer quadrant of left breast in female, estrogen receptor positive (HCC) (Primary Dx); Osteopenia of multiple sites; Use of aromatase inhibitors; Class 2 obesity with body mass index (BMI) of 35.0 to 35.9 in adult, unspecified obesity type, unspecified whether serious comorbidity present Social History Tobacco Use Types Packs/Day Years [...] Sign Reading Time Taken Comments Blood Pressure 118/68 02/26/2019 10:37 AM CDT Pulse 68 02/26/2019 10:37 AM CDT Temperature 36.8 ??C (98.2 ??F) 02/26/2019 10:37 AM C DT Respiratory Rate 18 02/26/2019 10:37 AM CDT Oxygen Saturation - - Inhaled Oxygen Concentration - - Weight 86.8 kg (191 lb 6.4 oz) 02/26/2019 10:37 AM CDT Height 165.1 cm (5' 5 ) 02/26/2019 10:37 AM CDT Body Mass Index 31.85 02/26/2019 10:37 AM CDT documented in this encounter [...] * Patient Instructions* Enrique Gonzalez MD - 02/26/2019 10:57 AM CDT Prolia today RTC in 6 months with COMP documented in this encounter Progress Notes * Enrique Gonzalez MD - 02/26/2019 10:29 AM CDT Oncology Clinic Follow Up Note Date of Follow Up: 02/26/2019 Patient Name:??Perla Leon??is a 78??y.o. Female ??= 1940 ? Surgeon:?Dr Shira Love? PCP: Jarrell Garrison MD ? 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 Arimidex 1 mg po daily started on 09/17/17 Prolia 60 mg SQ Q 6 months started??on 01/14/18 ? HPI: Perla Leon??is an 78??y.o.??white woman with history of TIA, atrial fib, DM, heart murmur, partal seizures, famlial spastic paraparesis and obesity, diagnosed with left breast cancer in August 2017and is currently on Arimidex came today for [...] supplement and was started Prolia on 01/14/18. Her serum ca= 10.6 today. No other new complaints. Medical History Past [...] T1cN0(i-)M0, stage IA. ER pos 97% (strong), CO pos 23% (moderate), Her-2 neg (1+ on [...] HPI. ECOG 3 PS Physical Exam BP 118/68 (BP SITE: LEFT ARM, BP POSITION: SITTING, BP CUFF SIZE: 11) Pulse 68 Temp 98.2 ??F (36.8 ??C) (Temporal) Resp 18 Ht 5' 5 (1.651 m) Wt 191 lb 6.4 oz (86.8 kg) BMI 31.85 kg/m2 GENERAL: in no acute distress HEENT: Extra-ocular motions [...] x 3. Labs Recent Labs Component Name 11/06/18 1043 12/09/17 1545 08/26/17 0413 WBC 7.2 7.5 12.6* HGB 11.2* 11.0* 10.0* HCT 38.2 36.4 33.4* PLTCOUNT 327 326 386 Component Latest Ref Rng & Units 02/26/2019 [...] Self breast exam - Mammogram 08/2018 was benign ? 2. Obesity ? 3. Osteopenia: on Prolia Q 6 months. Her serum ca today is borderline elevated and advised her to cut back the caltrate 699-49=00 MG to once peer day and Vit D 1000 units po daily. ? 4. ECOG 3 Poor Functional status ? 5. Family history of breast cancer : genetic testing sent ? 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 RTC in 6 months for follow up with labs Enrique Gonzalez MD 02/26/2019 12:35 PM documented in this encounter Plan of Treatment Not on file documented as of this encounter Goals Goal Patient Goal Type Associated Problems Recent Progress Patient-Stated? 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 8:09 AM PRINCIPAL CLERK) No Alisa Jaramillo HEMOGLOBIN A1C < 7.0 Result Component 5.4( 12:00 AM CDT) No Alisa Jaramillo documented as of this encounter Results * (ABNORMAL) BASIC METABOLIC PANEL (CALCIUM TOTAL) (02/26/2019 10:27 AM CDT) Pathologist [facility] Glucose 150(H) 70 - 105 mg/dL 02/26/2019 10:57 AM CDT [facility] Sodium 142 136 - 145 mmol/L 02/26/2019 10:57 AM CDT [facility] Potassium 3.4(L) 3.5 - 5.1 mmol/L 02/26/2019 10:57 AM CDT [facility] Chloride 102 98 - 107 mmol/L 02/26/2019 10:57 AM CDT [facility] CO2 34(H) 23 - 31 mmol/L 02/26/2019 10:57 AM CDT [facility] Calcium 10.6(H) 8.4 - 10.2 mg/dL 02/26/2019 10:57 AM CDT [facility] Anion Gap 6(L) 8 - 16 mmol/L 02/26/2019 10:57 AM CDT [facility] BUN 17 9.8 - 20.1 mg/dL 02/26/2019 10:57 AM CDT [facility] Creatinine 0.82 0.57 - 1.11 mg/dL 02/26/2019 10:57 AM CDT [facility] eGFR by MDRD >60 mL/min/1.7 3m2 02/26/2019 10:57 AM CDT [facility] eGFR by MDRD >60 mL/min/1.7 3m2 02/26/2019 10:57 AM CDT [facility] Blood BLOOD SPECIMEN / Unknown Venipuncture / Unknown 02/26/2019 10:27 AM CDT 02/26/2019 10:39 AM CDT Enrique Gonzalez MD LAB - CHEMISTRY ROWAN QUIROZ [facility] Organization Address City/State/ZIP Co de Phone Number [facility] [address] [place] [address] documented in this encounter Visit Diagnoses Diagnosis Malignant neoplasm of upper-outer quadrant of left breast in female, estrogen receptor positive (HCC)- Primary Osteopenia of multiple sites Use of aromatase inhibitors Class 2 obesity with body mass index (BMI) of 35.0 to 35.9 in adult, unspecified obesity type, unspecified whether serious comorbidity present documented in this encounter Care Teams Associate Professor Of Forestry Relationship Specialty [place] [address] [facility] [address] [place] [address] PCP - General Internal Medicine 03/31/18 05/30/22 Etienne Florez MD Orthopedic Surgery 12/09/14 [place] [address] [facility] [address] [place] [address] Oncology 09/15/17 [place] [address] [facility] [address] [place] [address] Neurology 06/26/18 [place] [address] [address] Cardiovascular Disease 06/26/18 [place] [address] [id number] Pulmonary Disease 06/26/18 Yuliya Ibarra MD [address] [place] [address] Endocrinology 06/26/18 Phuong Callejas DPM [address] [place], [place] [id number] Podiatry 06/26/18 Sy Barrientos MD [address] [place] [address] [place] [address] Ophthalmology 06/26/18 [place] [address] [id number] Pulmonary Disease 06/26/18 Rico Gasca MD [address] [place] [address] Urology 06/26/18 Elle aLndaverde MD [address] [place] [address] Vascular Surgery 06/26/18 Kirk Truong MD [address] [facility] [address] [place] [address] Gastroenterology 06/26/18 [place] [address] [place] [address] General Surgery 06/26/18 documented as of this encounter
--- OUTSIDE RECORDS SUMMARY | 2024-05-26 12:39 | XMS_ITS | Encounter Summary ---
Author Organization [facility] Address [address] [place] [address] Care Team Providers Care Chemicals Distiller Name Role Phone Etienne Florez MD Unavailable [phone] Enrique Gonzalez MD Unavailable Theresa Camargo MD Primary Care Provider [phone] Nelson Ross MD Unavailable Laz Valencia MD Unavailable Russell Moran MD Unavailable Yuliya Ibarra MD Unavailable Phuong Callejas DPM Unavailable Sy Barrientos MD Unavailable Russell Moran MD Unavailable Rico Gasca MD Unavailable Elle Landaverde MD Unavailable Kirk Truong MD Unavailable Shira Love DO Unavailable [phone] Reason for Visit * Auth/Cert Specialty Diagnoses / Procedures Referred By Alejandrina vale Referred To Contact Procedures COLONOSCOPY SCREEN Referral ID Status Reason Start Date Expiration Date Visits Re quested Visits Authorized [id number] 1 1 Encounter Details Date Type Department Care Team (Late st Contact Info) Description 02/17/2019 9:45 AM CDT - 02/17/2019 10:15 AM CDT Surgery [facility] [address] [place] [address] [place] [address] [facility] [address] [address] COLONOSCOPY WITH BIOPSY AND POSSIBLE POLYPECTOMY Surgery Details Date/Time Status Location OR Service Patient Class Case Class Case Type Trauma Case? 02/17/2019 9:45 AM Posted [facility]O 01 Gastroenterology Surgery Day Care Elective > 5 days Panel 1 Procedure LRB Anes Op Region Wound Class Comments COLONOSCOPY WITH BIOPSY AND POSSIBLE POLYPECTOMY MAC Clean Contaminated Surgeon Surgeon Role Service Panel Kirk Truong MD Primary Gastroenterology 1 documented in this encounter Social History Tobacco [...] Sign Reading Time Taken Comments Blood Pressure 136/61 02/17/2019 10:14 AM CDT Pulse 71 02/17/2019 10:03 AM CDT Temperature 36.6 ??C (97.8 ??F) 02/17/2019 9:11 AM CD T Respiratory Rate 17 02/17/2019 10:03 AM CDT Oxygen Saturation 100% 02/17/2019 10:14 AM CDT Inhaled Oxygen Concentration - - Weight 89.8 kg (198 lb) 02/17/2019 9:11 AM CDT Height 165.1 cm (5' 5 ) 02/17/2019 9:11 AM CDT Body Mass Index 32.95 02/17/2019 9:11 AM CDT documented in this encounter Functional [...] Take 1 Tab by mouth once daily. SITagliptin (JANUVIA) 100 MG tablet Take 100 [...] mg by mouth once daily 06/18/2018 03/30/2020 NA-K-MG sulfates (SUPREP BOWEL PREP KIT) 17.5-3.13-1.6 GM/177ML solutionIndications:Sp ecial screening for malignant neoplasms, colon Take 354 mL by mouth once daily 1 kit 01/08/2019 02/22/2019 polyethyl glycol-propyl glycol (SYSTANE) 0.4-0.3 % ophth [...] daily 11/23/2019 documented as of this encounter H&P Notes * Kirk Truong MD - 02/17/2019 9:52 AM CDT ENDOSCOPY PRE-PROCEDURE MEDICAL HISTORY & PHYSICAL Perla Leon 78 year old female BP 156/71 Pulse 78 Temp 97.8 ??F (36.6 ??C) (Oral) Resp 18 Ht 1.651 m (5' 5 ) Wt 89.8 kg (198 lb) SpO2 96% BMI 32.95 kg/m2 History: Past Medical History: Diagnosis Date ??? [...] Type 2 diabetes mellitus without complication 01/07/2011 Allergies Allergen Reactions ??? Advair Diskus YEAS [...] 81 mg by mouth once daily ??? baclofen (LIORESAL) 10 MG tablet Take 1 tablet by mouth 3 times daily May cause drowsiness. 90 tablet 0 ??? calcium carbonate-vitamin D (CALTRATE 600+D) 600-400 MG-UNIT tablet Take 1 tablet by mouth 2 times daily 60 tablet ??? clopidogrel (PLAVIX) 75 MG tablet TAKE 1 TABLET AT BEDTIME 90 tablet 4 ??? Cyanocobalamin (B-12) 1000 MCG TBCR Take by mouth once daily. ??? empagliflozin (JARDIANCE) 10 MG tablet Take 1 tablet by mouth once daily (Patient not taking: Reported on 02/17/2019) 90 tablet 0 ??? esomeprazole (NEXIUM) 40 MG capsule Take 1 capsule by mouth once daily 90 capsule 3 ??? FLECAINIDE ACETATE PO Take 50 mg by mouth 2 times daily ??? furosemide (LASIX) 40 MG tablet Take 1 Tab by mouth once daily 90 Tab 2 ??? glimepiride (AMARYL) 1 MG tablet Take 1 Tab by mouth 3 times daily,before breakfast/lunch/bedtime 1.5 tab po with Breakfast, 2 tab with lunch, 2.5 with dinner. ??? hydroxypropyl methylcellulose 0.3% (SYSTANE OVERNIGHT THERAPY) 0.3 % ophthalmic gel Instill 1 Drop into both eyes nightly as needed for Dry Eyes ??? latanoprost (XALATAN) 0.005 % ophthalmic solution Instill 1 drop into both eyes at bedtime ??? levothyroxine (SYNTHROID) 25 MCG tablet Take 25 mcg by mouth daily before breakfast ??? lubiprostone (AMITIZA) 24 MCG capsule Take 1 capsule by mouth 2 times daily with morning and evening meal 60 capsule 0 ??? menthol-zinc oxide (CALMOSEPTINE) 0.44-20.6 % ointment Apply to affected area as needed for Other ??? metOLazone (ZAROXOLYN) 2.5 MG tablet Take 2.5 mg by mouth every 7 days ??? multivitamin with iron (ONE A DAY WITH IRON) tablet Take 1 Tab by mouth once daily. ??? MYRBETRIQ 50 MG tablet Take 25 mg by mouth once daily ??? NA-K-MG sulfates (SUPREP BOWEL PREP KIT) 17.5-3.13-1.6 GM/177ML solution Take 354 mL by mouth once daily 1 kit 0 ??? polyethyl glycol-propyl glycol (SYSTANE) 0.4-0.3 % ophth solution 1 drop ??? polyethylene glycol 3350 (MIRALAX) packet Take 17 g by mouth once daily ??? potassium chloride ER (KLOR-CON) 10 MEQ tablet TAKE 4 TABLETS WITH BREAKFAST 360 tablet 0 ??? psyllium (METAMUCIL) 58.6 % powder Take 1 packet by mouth as needed Reasons: Constipation ??? rosuvastatin (CRESTOR) 10 MG tablet TAKE 1 TABLET AT BEDTIME 90 tablet 3 ??? sitaGLIPtin (JANUVIA) 50 MG tablet Take 100 mg by mouth once daily ??? verapamil SR 24hr (VERELAN) 240 MG capsule Take 240 mg by mouth once daily Current Facility-Administered Medications Medication Dose Route Frequency Provider Last Rate Last Dose ??? 0.9% NaCl infusion Intravenous Continuous Kirk Truong MD 20 mL/hr at 02/17/19 0922 Physicial Exam: Physical exam is normal ASA Evaluation and Anesthesia Plan: Anesthesia administered per Anesthesia Department Indication(s) for Procedure: Other: Cologuard positive Procedure Planned: Colonoscopy Kirk Truong MD documented in this encounter Plan of Treatment Scheduled Orders Name Type Priority Associated Diagnoses Orde r Schedule ENDOSCOPY, COLON, DIAGNOSTIC GI Routine ONCE for 1 Occur rences starting 02/17/2019 until 02/17/2019 documented as of this encounter Goals Goal Patient Goal Type Associated Problems Recent Progress Patient-Stated? 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 8:09 AM MARKING MACHINE TENDER) No Alisa Jaramillo HEMOGLOBIN A1C < 7.0 Result Component 5.4( 12:00 AM CDT) No Alisa Jaramillo documented as of this encounter Procedures Procedure Name Priority Date/Time Associated Diagnosis Comments PATHOLOGY TISSUE EXAM (STL) Routine 02/17/2019 10:51 AM CDT Diagnosis unknown ENDOSCOPY, COLON, SCREENING Routine 02/17/2019 9:45 AM CDT Special screening for malignant neoplasms, colon COLONOSCOPY SCREEN 02/17/2019 9: 45 AM CDT documented in this encounter Results * GROSS + MICRO EXAM (STL) (02/17/2019 10:51 AM CDT) Case Report Surgical Pathology Report ? Case: [id number] ? Authorizing Provider: ??Kirk Truong MD ? Collected: ? 02/17/2019 10:51 AM ? Ordering Location: ? [facility] ?Received: ?02/17/2019 01:04 PM ? Pathologist: ? Shamika Vega MD ? Specimen: ?Polyp Colon ? 02/18/2019 10:53 AM [facility] Final Diagnosis Colon polyp, biopsy: -- Polypoid fragment of colonic mucosa with erosion and mixed inflammation -- No dysplasia -- See description 02/18/2019 10:53 AM [facility] Gross Description Received in formalin labeled with the patient? s name and, colon polyp, and consists of fragments of ayala tissue admixed with fecal material. The specimen measures 6 x 5 x 2 mm in aggregate. The specimen is submitted entirely in cassette A1. MC/na 02/18/2019 10:53 AM [facility] Microscopic Description Sections show multiple fragments of colonic mucosa, one of which demonstrates erosion with mixed lamina propria acute and chronic inflammation, acute cryptitis, and an acute necroinflammatory exudate. Features of chronicity are not identified. There is no evidence of dysplasia or malignancy. 02/18/2019 10:53 AM [facility] Disclaimer All histochemical and/or immunohistochemical results are interpreted with controls that demonstrate appropriate staining reactions before reporting results. Note on use of immunocytochemistry reagents: This test was developed and its performance characteristic determined by [facility], Department of Laboratory Medicine. It has not been cleared or approved by the U.S. Food and Drug Administration (FDA). The FDA has determined that such clearance or approval is not necessary. The test is used for clinical purpose. It should not be regarded as investigational or for research. This laboratory is certified to perform high complexity testing. 02/18/2019 10:53 AM T [facility] Embedded Images 02/18/2019 10:53 AM T [facility] Pathology/Cytolo gy POLYP OF COLON / Unknown 02/17/2019 10:51 AM CDT 02/17/2019 1:04 PM CDT Kirk Truong MD LAB - PATHOLOGY/CYT OLOGY ORDERABLES [facility] [address] [place] [address] * ENDOSCOPY, COLON, SCREENING (02/17/2019 9:45 AM CDT) Report Endoscopy POC _ Patient Name: Perla Leon ? Procedure Date: 02/17/2019 9:45 AM ? Date of : 1940 ?Admit Type: Outpatient Age: 78 ? Gender: Female Attending MD: Kirk Truong MD _ Procedure: ? Colonoscopy Indications: ? Last colonoscopy: 2011, Positive Cologuard test Providers: ? Kirk Truong MD (Doctor) Referring MD: ?Theresa Camargo [...] the physician, the ? nurse and the crane hooker in the procedure room. Mental ? Status [...] Procedure Code(s): ? --- Professional --- ? 27780, Colonoscopy, flexible; with removal of tumor(s), polyp(s), or ? other lesion(s) by snare technique ? 93573, 59, Colonoscopy, flexible; with biopsy, single or multiple ? --- Technical --- ? 32576, Colonoscopy, flexible; with removal of tumor(s), polyp(s), or ? other lesion(s) by snare technique ? 12549, 59, Colonoscopy, flexible; with biopsy, single or [...] R19.5, Other fecal abnormalities CPT copyright 2017 [employer]. All rights reserved. The codes documented in this report are preliminary and upon technical marketing consultant review may be revised to meet current compliance requirements. Dr. Kirk Truong MD Kirk Truong MD 02/17/2019 11:10:53 AM This report has been signed electronically. Number of Addenda: 0 Note Initiated On: 02/17/2019 9:45 AM [facility] 02/17/2019 9:45 AM CDT Kirk Truong MD GI PROCEDURE ORDERA AXEL [facility] [place] [place] [address] documented in this encounter Visit Diagnoses Not on filedocumented in this encounter Administered Medications Inactive Administered Medications - up to 3 most recent administrations Medication Order MAR Action Action Date Dose Rate Site 0.9% NaCl infusion at 20 mL/hr, Intravenous, CONTINUOUS, Starting on Fri02/17/19 at 1000, Until Fri02/17/19 at 1306, Pre-procedure (GI) $ New Bag/Syringe 02/17/2019 9:22 AM CDT 20 mL/h r 0.9% NaCl injection 3 mL 3 mL, Intracatheter, PRE-PROCEDURE MULTIPLE, Starting on Fri02/17/19 at 0953, Until Fri02/17/19 at 1306, For Saline Lock flushes if one is inserted for Bronchoscopy/Endoscopy procedure., Pre-procedure (GI) documented in this encounter Active and Recently Administered Medications Times are shown in CDT. Scheduled Medication Order 02/15/2019 02/16/2019 02/17/2019 0.9% NaCl injection 3 mL 3 mL, Intracatheter, PRE-PROCEDURE MULTIPLE, Starting on Fri02/17/19 at 0953, Until Fri02/17/19 at 1306, For Saline Lock flushes if one is inserted for Bronchoscopy/Endoscopy procedure., Pre-procedure (GI) Continuous Medication Order 02/15/2019 02/16/2019 02/17/2019 0.9% NaCl infusion at 20 mL/hr, Intravenous, CONTINUOUS, Starting on Fri02/17/19 at 1000, Until Fri02/17/19 at 1306, Pre-procedure (GI) 0922 ($ New Bag/Syri nge - Provider: Maisha Hoyt RN)1000 (Due)1101 (Anesthesia Volume Adjustment - Provider: Elpidio Reyes APRN-POUND ATTENDANT) documented in this encounter Care Teams Chemicals Distiller Relationship Specialty Start [place] [address] [address] [facility] [address] [place] [address] PCP - General Internal Medicine 03/31/18 05/30/22 Etienne Florez MD Orthopedic Surgery 12/09/14 [place] [address] [facility] [address] [place] [address] Oncology 09/15/17 [place] [address] [facility] [address] [place] [address] Neurology 06/26/18 [place] [address] [facility] [address] [place] [address] Cardiovascular Disease 06/26/18 [place] [address] [id number] Pulmonary Disease 06/26/18 Yuliya Ibarra MD [address] [facility] [address] [place] [address] Endocrinology 06/26/18 Phuong Callejas DPM [address] [place] [address] Podiatry 06/26/18 Sy Barrientos MD [address] [place] [address] [place] [address] Ophthalmology 06/26/18 [place] [address] [facility] [address] [place] [address] Pulmonary Disease 06/26/18 Rico Gasca MD [address] [place] [address] Urology 06/26/18 Elle Landaverde MD [address] [address] Vascular Surgery 06/26/18 Kirk Truong MD [address] [address] Gastroenterology 06/26/18 [place] [address] [facility] [address] [place] [address] General Surgery 06/26/18 documented as of this encounter
--- OUTSIDE RECORDS SUMMARY | 2024-05-26 12:39 | XMS_ITS | Encounter Summary ---
Author Organization [facility] Address [address] [place] [address] Care Team Providers Care Hose Sprayer Name Role Phone Etienne Florez MD Unavailable [phone] Enrique Gonzalez MD Unavailable [phone] Theresa Camargo MD Primary Care Provider Nelson Ross MD Unavailable Laz Valencia MD Unavailable Russell Moran MD Unavailable Yuliya Ibarra MD Unavailable Phuong Callejas DPM Unavailable [phone] Sy Barrientos MD Unavailable Russell Moran MD Unavailable [phone] Rico Gasca MD Unavailable Elle Landaverde MD Unavailable [phone] Kirk Truong MD Unavailable [phone] Shira Love DO Unavailable [phone] Encounter Details Date Type Department Care Team (Late st Contact Info) Description 03/24/2019 8:40 AM MLT Office Visit [facility] [address] [place] [address], [address] [id number] Hussain Norris MD [address] [place] [address] [address] [place] [address] Lower urinary tract symptoms (LUTS) (Primary Dx); Incomplete emptying of bladder; Functional urinary incontinence; CON (stress urinary incontinence, female) Social History [...] - Inhaled Oxygen Concentration - - Weight 89.4 kg (197 lb) 03/24/2019 9:04 AM MLT Height 165.1 cm (5' 5 ) 03/24/2019 9:04 AM MLT Body Mass Index 32.78 03/24/2019 9:04 AM MLT documented in this encounter Functional Status Functional [...] Progress Notes * Hussain Norris MD - 03/24/2019 8:40 AM CST [facility] Urologic Surgery New Patient Note Encounter Date: 03/24/2019 Patient Name: Perla Leon Referring Provider: Theresa Camargo MD Chief Complaint: No chief complaint on file. History of Present Illness: Ms. Leon is a 78 year old female who was referred by Theresa Camargo MD for urinary incontinence.Chronic issue. She has been following with Dr. Gasca for over a year and has been on myrbetriq 25mg. Continues to have insensate, functional incontinence soaking through depends and clothes. Changes her clothes 4-5 times/day. Tried timed voids but hasn't made a difference. She does have lower extremity edema and is on a diuretic. Cr 02/[address] abdomen pelvis in December, showed no hydronephrosis. She has hereditary spastic paraplegia and is [...] CHF Medications: Outpatient Encounter Medications as of 03/24/2019 Medication Sig Dispense Refill ??? albuterol HFA [...] 25 mg by mouth once daily ??? polyethyl glycol-propyl glycol (SYSTANE) 0.4-0.3 % [...] facility-administered encounter medications on file as of 03/24/2019. Allergies: Allergies Allergen Reactions ??? Advair Diskus [...] Ht 1.651 m (5' 5 ) Wt 89.4 kg (197 lb) BMI 32.78 kg/m2 Body mass index is 32.78 kg/m??. Physical Examination: General: Alert, oriented to person, place, situation. No distress. White female, obese HEENT: Normocephalic, atraumatic. Extraocular muscles intact, no scleral icterus. Normal conjunctiva. No lip cyanosis. Neck: Midline trachea, no obvious masses Cardiovascular: regular rate, No digital clubbing or lower extremity edema Respiratory: Non-labored respirations. Normal rate without recruitment of accessory respiratory muscles. Comfortable, symmetric respiratory effort . Hematological/Immunological: no echymosis, no bleeding gums and [...] No results found for this visit on 03/24/19. Imaging: No results found. Assessment/Plan: Problem Lower Urinary Tract Symptoms (Luts) 11/2018 on myrbetriq 25mg (Dr. Gasca) with some improvement. Had confusion with 50mg? 03/24/19 PVR 304mL Urinary incontinence, stress, overflow, and functional Incomplete emptying of bladder -unable to provide urine sample, bladder scan 304mL -she has tried all conservative measures. We discussed medications will not solve her issue. Currently there is no danger with her incontinence or incomplete emptying other than quality life issue. They have previously discussed her options and would like to proceed with catheter placement. Return in 1 month for exchange to see how she is doing and determine if she wants to keep the catheter. If she does then will have home health change it for her. -stop myrbetriq Hussain Norris MD [facility] Office [phone] Exchange [phone] documented in this encounter Miscellaneous Notes * Addendum Note - Bekah Oconnell - 03/24/2019 12:06 PM CSTAddended by: BEKAH OCONNELL on: 03/24/2019 12:06 PM Modules accepted: Level of Service documented in this encounter Plan of Treatment Not on file documented as of this encounter Goals Goal Patient Goal Type Associated Problems Recent Progress Patient-Stated? 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 8:09 AM MLT) No Alisa Jaramillo HEMOGLOBIN A1C < 7.0 Result Component 5.4( 12:00 AM CDT) No Alisa Jaramillo documented as of this encounter Visit Diagnoses Diagnosis Lower urinary tract symptoms (LUTS)- Primary Other symptoms involving urinary system Incomplete emptying of bladder Incomplete bladder emptying Functional urinary incontinence CON (stress urinary incontinence, female) Female stress incontinence * Assessment & Plan Note - Hussain Norris MD - 03/23/2019 4:31 PM CSTAssociated Problem(s): Lower urinary tract symptoms (LUTS) (Resolved 11/23/2019) - documented in this encounter Care Teams Hose Sprayer Relationship Specialty [place] [address] [facility] [address] [place] [address] PCP - General Internal Medicine 03/31/18 05/30/22 Etienne Florez MD Orthopedic Surgery 12/09/14 [place] [address] [facility] [address] [place] [address] Oncology 09/15/17 [place] [address] [facility] [address] [place] [address] Neurology 06/26/18 [place] [address] [facility] [address] [place] [address] Cardiovascular Disease 06/26/18 [place] [address] [id number] Pulmonary Disease 06/26/18 Yuliya Ibarra MD [address] [facility] [address] [place] [address] Endocrinology 06/26/18 Phuong Callejas DPM [address] [place] [address] Podiatry 06/26/18 Sy Barrientos MD [facility] [place] [address] Ophthalmology 06/26/18 [place] [address] [address] Pulmonary Disease 06/26/18 Rico Gasca MD [address] [place] [address] Urology 06/26/18 Elle Landaverde MD [address] [place] [address] Vascular Surgery 06/26/18 Kirk Truong MD [address] [facility] [address] [place] [address] Gastroenterology 06/26/18 [place] [address] [facility] [address] [place] [address] General Surgery 06/26/18 documented as of this encounter
--- OUTSIDE RECORDS SUMMARY | 2024-05-26 12:39 | XMS_ITS | Encounter Summary ---
Author Organization [facility] Address [address] [facility] [facility] [place] [address] Care Team Providers Care Supervisor Pigment Making Name Role Phone Etienne Florez MD Unavailable Enrique Gonzalez MD Unavailable [phone] Theresa Camargo MD Primary Care Provider Nelson Ross MD Unavailable Laz Valencia MD Unavailable Russell Moran MD Unavailable Yuliya Ibarra MD Unavailable [phone] Phuong Callejas DPM Unavailable Sy Barrientos MD Unavailable [phone] Russell Moran MD Unavailable Rico Gasca MD Unavailable [phone] Elle Landaverde MD Unavailable Kirk Lewis MD Unavailable Shira Love DO Unavailable [phone] Reason for Referral * Procedure (Routine) - Closed Specialty Diagnoses / Procedures Referred By Alejandrina t Referred To Contact Gastroenterology Diagnoses Special screening for malignant neoplasms, colon Procedures ENDOSCOPY, [place] [address] [facility] [address] [place] [address] Referral ID Status Reason Start Date Expiration Date Visits Re quested Visits Authorized [id number] Closed 01/08/2019 07/07/2019 1 1 Encounter Details Date Type Department Care Team (Late st Contact Info) Description 01/08/2019 Orders Only [address], [address] [place] [address] [place] [address] [facility] [address] [place] [address] Special screening for malignant neoplasms, colon Social History Tobacco Use Types Packs/Day Years [...] this encounter Patient Instructions * Patient Instructions* Nadja Wiggins RN - 01/08/2019 11:15 AM CDT LILIA LEWIS M.D. [address] [facility] OFFICE: [phone] [place], [place] [address] EXCHANGE: [phone] COLONOSCOPY ?? NOTIFY OUR OFFICE IF YOU ARE TAKING A BLOOD THINNER (ie. COUMADIN,PLAVIX,ASPIRIN) OR MEDICATIONSTHAT CONTAIN ASPIRIN OR IRON. STOP IRON PILLS, ASPIRIN AND PLAVIX ON February 12 DAY BEFORE PROCEDURE FridayFEBRUARY 16 ?? BEGIN A CLEAR LIQUID DIET avoiding RED colored liquids. A clear liquid diet includes: water,fruit juices without pulp, clear broth or bouillon, coffee or tea (without milk or non dairy creamer),Gatorade, carbonated and non-carbonated soft drinks, Vincent-Aid or flavored drinks, plain jello (without added fruits of toppings), popsicles, hard and hard candy. ?? NO SOLID FOODS should be eaten while on the CLEAR LIQUID DIET. STEP 1: 11:00AM Take 4 bisacodyl 5mg tablets with water. ( these are to be purchased over the counter) . STEP 2: 1:00PM Drink half of bowel prep. Mix 1 bottle of prep with water in The provided cup and drink within 1 hour.. Follow by 2 8 ounces of fluid over next hour. STEP 3: 8:00PM Mix second bottle of prep and drink.. Follow by 2 glasses 8 ounces of fluid over next 2 hours. Stools should be clear water without Particles of stool. DAY OF PROCEDURE FridayFebruary 17 > You may have nothing BY MOUTH AFTER MIDNIGHT. You may take your routine medications (except blood thinners) with a Sip of water. >Report to [facility] Building 2 nd Floor Surgery Waiting room at 8:30AM >Your procedure is scheduled for 9:30AM . >You will be given medication for this procedure. YOU MUST HAVE A CAR HOP PRESENT TO TAKE YOU HOME. >It is ultimately your responsibility to verify insurance coverage and obtain Referral if needed. IF YOU HAVE QUESTIONS PLEASE CALL THE OFFICE AT [phone]. documented in this encounter Plan of Treatment Not on file documented as of this encounter Goals Goal Patient Goal Type Associated Problems Recent Progress Patient-Stated? 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 8:09 AM QUALITY NURSE) No Alisa Jaramillo HEMOGLOBIN A1C < 7.0 Result Component 5.4( 12:00 AM CDT) No Alisa Jaramillo documented as of this encounter Results * ENDOSCOPY, COLON, SCREENING (02/17/2019 9:45 AM CDT) Report Endoscopy POC _ Patient Name: Perla Leon ? Procedure Date: 02/17/2019 9:45 AM ? Date of : 1940 ?Admit Type: Outpatient Age: 78 ? Gender: Female Attending MD: Kirk Lewis MD _ Procedure: ? Colonoscopy Indications: ? Last colonoscopy: 2011, Positive Cologuard test Providers: ? Kirk Lewis MD (Doctor) Referring MD: ?Theresa Camargo MD [...] the physician, the ? nurse and the inclusion manager in the procedure room. Mental ? Status [...] Procedure Code(s): ? --- Professional --- ? 66804, Colonoscopy, flexible; with removal of tumor(s), polyp(s), or ? other lesion(s) by snare technique ? 43685, 59, Colonoscopy, flexible; with biopsy, single or multiple ? --- Technical --- ? 94769, Colonoscopy, flexible; with removal of tumor(s), polyp(s), or ? other lesion(s) by snare technique ? 40212, 59, Colonoscopy, flexible; with biopsy, single or [...] R19.5, Other fecal abnormalities CPT copyright 2017 [employer]. All rights reserved. The codes documented in this report are preliminary and upon cpc coder review may be revised to meet current compliance requirements. Dr. Kirk Lewis MD Kirk Lewis MD 02/17/2019 11:10:53 AM This report has been signed electronically. Number of Addenda: 0 Note Initiated On: 02/17/2019 9:45 AM [facility] ENDOSCOPY 02/17/2019 9:45 AM CDT Kirk Lewis MD GI PROCEDURE [place] [address] documented in this encounter Visit Diagnoses Diagnosis Special screening for malignant neoplasms, colon- Primary documented in this encounter Care Teams Supervisor Pigment Making Relationship Specialty Start [place] [address] [facility] [address] [place] [address] PCP - General Internal Medicine 03/31/18 05/30/22 Etienne Florez MD Orthopedic Surgery 12/09/14 [place] [address] [facility] [address] [place] [address] Oncology 09/15/17 [place] [address] [facility] [address] [place] [address] Neurology 06/26/18 [place] [address] [facility] [address] [place] [address] Cardiovascular Disease 06/26/18 [place] [address] [facility] [address] [place] [address] Pulmonary Disease 06/26/18 Yuliya Ibarra MD [address] [facility] [address] [place] [address] Endocrinology 06/26/18 Phuong Callejas DPM [address] [place] [address] Podiatry 06/26/18 Sy Barrientos MD [address] [place] [address] [place] [address] Ophthalmology 06/26/18 [place] [address] [address] Pulmonary Disease 06/26/18 Rico Gasca MD [address] [address] Urology 06/26/18 Elle Landaverde MD [address] [address] Vascular Surgery 06/26/18 Kirk Lewis MD [address] [address] Gastroenterology 06/26/18 [place] [address] [id number] General Surgery 06/26/18 documented as of this encounter
--- OUTSIDE RECORDS SUMMARY | 2024-05-26 12:39 | XMS_ITS | Encounter Summary ---
Author Organization [facility] Address [address] [place] [address] Care Team Providers Care Table And Desk Finisher Name Role Phone Etienne Florez MD Unavailable Enrique Gonzalez MD Unavailable [phone] Theresa Camargo MD Primary Care Provider Nelson Ross MD Unavailable Laz Valencia MD Unavailable Russell Moran MD Unavailable Yuliya Ibarra MD Unavailable Phuong Callejas DPM Unavailable [phone] Sy Barrientos MD Unavailable [phone] Russell Moran MD Unavailable Rico Gasca MD Unavailable Elle Landaverde MD Unavailable Kirk Truong MD Unavailable [phone] Shira Love DO Unavailable [phone] Theresa Camargo MD Unavailable [phone] Brooke Haynes [facility] Unavailable [phone] Reason for Visit * Reason Onset Date Comments General 04/19/2019 Encounter Details Date Type Department Care Team (Late st Contact Info) Description 04/19/2019 Telephone [facility] - Family Medicine [address] [facility] [address] [place] [address] [place] [address] [facility] [address] [place] [address] General Social History Tobacco Use Types Packs/Day Years [...] * Telephone Encounter - Jina Haskins - 04/21/2019 8:23 AM CST Order placed and signed EL PHYSICAL THERAPIST * Telephone Encounter - Jina Haskins - 04/21/2019 8:11 AM CST The patient does have home care already they are just needing a order for PT EL PHYSICAL THERAPIST * Telephone Encounter - Asha Narvaez APRN-CNP - 04/20/2019 4:50 PM TRAVEL PHYSICAL THERAPIST No. I was just to see her for the glucose in the urine and wounds. I knew nothing about home healthneeds. EL PHYSICAL THERAPIST * Telephone Encounter - Candice Wan - 04/19/2019 3:19 PM CST Pt's daughter called again concerning physical therapy. Pt was in a hospital and was discharged. Ptwas told she would have in home therapy and that pcp would send in orders for physical therapy. Pt's daughter nor pt has heard anything about any orders placed. EL PHYSICAL THERAPIST documented in this encounter Plan of Treatment Not on file documented as of this encounter Goals Goal Patient Goal Type Associated Problems Recent Progress Patient-Stated? 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 8:09 AM TRAVEL PHYSICAL THERAPIST) No Alisa Jaramillo HEMOGLOBIN A1C < 7.0 Result Component 5.4( 12:00 AM CDT) No Alisa Jaramillo documented as of this encounter Visit Diagnoses Diagnosis Glucose found in urine on examination- Primary Glycosuria Lymphatic edema Other lymphedema documented in this encounter Care Teams Table And Desk Finisher Relationship Specialty [place] [address] [facility] [address] [place] [address] PCP - General Internal Medicine 03/31/18 05/30/22 [place] [address] [facility] [address] [place] [address] PCP - Attributed-MSSP 04/18/19 06/18/19 Brooke Haynes APRN-CNP [address] [facility] [address] [place] [address] PCP - Attributed-MSSP 06/19/19 07/17/19 Etienne Florez MD Orthopedic Surgery 12/09/14 [place] [address] [facility] [address] [place] [address] Oncology 09/15/17 [place] [address] [facility] [address] [place] [address] Neurology 06/26/18 Laz [place] [address] [place] [address] [address] [place] [address] Cardiovascular Disease 06/26/18 Russell Moran MD [address] [place] [address] Pulmonary Disease 06/26/18 Yuliya Ibarra MD [address] [facility] [address] [place] [address] Endocrinology 06/26/18 Phuong Callejas DPM [address] [place] [address] Podiatry 06/26/18 Sy Barrientos MD [address] [place] [address] [place] [address] Ophthalmology 06/26/18 Russell Moran MD [address] [place], [place] [address], [place] [address] Pulmonary Disease 06/26/18 Rico Gasca MD [address] [place] [address] Urology 06/26/18 Elle Landaverde MD [address] [address] Vascular Surgery 06/26/18 Kirk Truong MD [address] [address] Gastroenterology 06/26/18 [place] [address] [place] [address] General Surgery 06/26/18 documented as of this encounter
--- OUTSIDE RECORDS SUMMARY | 2024-05-26 12:39 | XMS_ITS | Encounter Summary ---
Author Organization [facility] Address [address] [facility] [place] [address] Care Team Providers Care Service Observer Chief Name Role Phone Etienne Florez MD Unavailable Enrique Gonzalez MD Unavailable [phone] Theresa Camargo MD Primary Care Provider Nelson Ross MD Unavailable [phone] Laz Valencia MD Unavailable Russell Moran MD Unavailable Yuliya Ibarra MD Unavailable Phuong Callejas DPM Unavailable Sy Barrientos MD Unavailable Russell Moran MD Unavailable Rico Gasca MD Unavailable Elle Landaverde MD Unavailable Kirk Truong MD Unavailable Shira Love DO Unavailable [phone] Theresa Camargo MD Unavailable [phone] Reason for Visit * Reason Onset Date Comments Question 04/26/2019 Encounter Details Date Type Department Care Team (Late st Contact Info) Description 04/26/2019 Telephone [facility] - Family Medicine [address] [facility] [address] [place] [address] [place] [address] [facility] [address] [place] [address] Question Social History Tobacco Use [...] Telephone Encounter - Rachel Estrada - 04/26/2019 1:31 PM CST I have attempted to contact this patient by phone with the following results: I will continue to try later. lmor for Sejal M INVESTIGATOR * Telephone Encounter - Theresa Camargo MD - 04/26/2019 1:01 PM CST Ok for pt as requested. M INVESTIGATOR * Telephone Encounter - Wanda Castro - 04/26/2019 11:12 AM CST AW OT would like to see pt for 1 week one followed by 2 week 2 M INVESTIGATOR documented in this encounter Plan of Treatment Not on file documented as of this encounter Goals Goal Patient Goal Type Associated Problems Recent Progress Patient-Stated? 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 8:09 AM ALARM INVESTIGATOR) No Alisa Jaramillo HEMOGLOBIN A1C < 7.0 Result Component 5.4( 12:00 AM CDT) No Alisa Jaramillo documented as of this encounter Visit Diagnoses Not on filedocumented in this encounter Care Teams Service Observer Chief Relationship Specialty Start [place] [address] [facility] [address] [place] [address] PCP - General Internal Medicine 03/31/18 05/30/22 [place] [address] [facility] [address] [place] [address] PCP - Attributed-MSSP 04/18/19 06/18/19 Etienne Florez MD Orthopedic Surgery 12/09/14 [place] [address] [facility] [address] [place] [address] Oncology 09/15/17 [place] [address] [facility] [address] [place] [address] Neurology 06/26/18 [place] [address] [facility] [address] [place] [address] Cardiovascular Disease 06/26/18 [place] [address] [address] Pulmonary Disease 06/26/18 Yuliya Ibarra MD [address] [facility] [address] [place] [address] Endocrinology 06/26/18 Phuong Callejas DPM [address] [place], [place] [address] Podiatry 06/26/18 Sy Barrientos MD [address] [place] [address] [place] [address] Ophthalmology 06/26/18 [place] [address] [id number] Pulmonary Disease 06/26/18 Rico Gasca MD [address] [facility] [address] [place] [address] Urology 06/26/18 Elle Landaverde MD [address] [facility] [address] [place] [address] Vascular Surgery 06/26/18 Kirk Truong MD [address] [facility] [address] [place] [address] Gastroenterology 06/26/18 [place] [address] [address] General Surgery 06/26/18 documented as of this encounter
--- OUTSIDE RECORDS SUMMARY | 2024-05-26 12:39 | XMS_ITS | Encounter Summary ---
Author Organization [facility] Address [address] [place] [address] Care Team Providers Care Director Public Name Role Phone Etienne Florez MD Unavailable [phone] Enrique Gonzalez MD Unavailable [phone] Theresa Camargo MD Primary Care Provider Nelson Ross MD Unavailable [phone] Laz Valencia MD Unavailable Russell Moran MD Unavailable [phone] Yuliya Ibarra MD Unavailable Phuong Callejas DPM Unavailable Sy Barrientos MD Unavailable Russell Moran MD Unavailable [phone] Rico Gasca MD Unavailable Elle Landaverde MD Unavailable Kirk Truong MD Unavailable Shira Love DO Unavailable [phone] Reason for Referral * Procedure (Routine) - Closed Specialty Diagnoses / Procedures Referred By Alejandrina vale Referred To Contact Gastroenterology Diagnoses Special screening for malignant neoplasms, colon Procedures ENDOSCOPY, COLON[place] [address] [place] [address] Referral ID Status Reason Start Date Expiration Date Visits Re quested Visits Authorized [id number] Closed 01/08/2019 07/07/2019 1 1 Reason for Visit * Auth/Cert Specialty Diagnoses / Procedures Referred By Alejandrina vale Referred To Contact Procedures COLONOSCOPY SCREEN Referral ID Status Reason Start Date Expiration Date Visits Re quested Visits Authorized [id number] 1 1 Encounter Details Date Type Department Care Team (Latest Contact Info) Description 02/17/2019 8:36 AM CDT - 02/17/2019 12:05 PM CDT Hospital Encounter [facility] - [facility] [address] [place] [address] [place] [address] [address] [place] [address] Surgery General Discharge Disposition: Home or Self Care Social [...] Sign Reading Time Taken Comments Blood Pressure 168/130 02/17/2019 11:30 AM CDT Pulse 74 02/17/2019 11:30 AM CDT Temperature 36.6 ??C (97.8 ??F) 02/17/2019 11:08 AM C DT Respiratory Rate 15 02/17/2019 11:30 AM CDT Oxygen Saturation 93% 02/17/2019 11:30 AM CDT Inhaled Oxygen Concentration - - [...] DIAGNOSTIC GI Routine ONCE for 1 Occur renronal starting 02/17/2019 until 02/17/2019 documented as of this encounter Goals Goal Patient Goal Type Associated Problems Recent Progress Patient-Stated? 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 Case: [id number] ? Authorizing Provider: ??Kirk Truong MD ? Collected: ? 02/17/2019 10:51 AM ? Ordering Location: ? [facility] ?Received: ?02/17/2019 01:04 PM ? Pathologist: ? Shamika Vega MD ? Specimen: ?Polyp Colon ? 02/18/2019 10:53 AM CDT [facility] Final Diagnosis Colon polyp, biopsy: -- Polypoid fragment of colonic mucosa with erosion and mixed inflammation -- No dysplasia -- See description 02/18/2019 10:53 AM T [facility] Gross Description Received in formalin labeled with the patient? s name and, colon polyp, and consists of fragments of ayala tissue admixed with fecal material. The specimen measures 6 x 5 x 2 mm in aggregate. The specimen is submitted entirely in cassette A1. MC/na 02/18/2019 10:53 AM CDT [facility] Microscopic Description Sections show multiple fragments of colonic mucosa, one of which demonstrates erosion with mixed lamina propria acute and chronic inflammation, acute cryptitis, and an acute necroinflammatory exudate. Features of chronicity are not identified. There is no evidence of dysplasia or malignancy. 02/18/2019 10:53 AM T [facility] Disclaimer All histochemical and/or immunohistochemical results are interpreted with controls that demonstrate appropriate staining reactions before reporting results. Note on use of immunocytochemistry reagents: This test was developed and its performance characteristic determined by [facility], Department of Laboratory Medicine. It has not been cleared or approved by the U.S. Food and Drug Administration (FDA). The FDA has determined that such clearance or approval is not necessary. The test is used for clinical purpose. It should not be regarded as investigational or for research. This laboratory is certified to perform high complexity testing. 02/18/2019 10:53 AM CDT [facility] Embedded Images 02/18/2019 10:53 AM T [facility] Pathology/Cytolo gy POLYP OF COLON / Unknown 02/17/2019 10:51 AM CDT 02/17/2019 1:04 PM CDT Kirk Truong MD LAB - PATHOLOGY/CYT OLOGY ORDERABLES Performing Organization Address City/State/[facility] Co de Phone Number [facility] [address] [facility] [address] [address] * ENDOSCOPY, COLON, SCREENING (02/17/2019 9:45 AM [...] the physician, the ? nurse and the sample color maker in the procedure room. Mental ? Status [...] Procedure Code(s): ? --- Professional --- ? 69799, Colonoscopy, flexible; with removal of tumor(s), polyp(s), or ? other lesion(s) by snare technique ? 43838, 59, Colonoscopy, flexible; with biopsy, single or multiple ? --- Technical --- ? 78327, Colonoscopy, flexible; with removal of tumor(s), polyp(s), or ? other lesion(s) by snare technique ? 93252, 59, Colonoscopy, flexible; with biopsy, single or [...] R19.5, Other fecal abnormalities CPT copyright 2017 [employer]. All rights reserved. The codes documented in this report are preliminary and upon chemical research technician review may be revised to meet current compliance requirements. Dr. Kirk Truong MD Kirk Truong MD 02/17/2019 11:10:53 AM This report has been signed electronically. Number of Addenda: 0 Note Initiated On: 02/17/2019 9:45 AM [facility] 02/17/2019 9:45 AM CDT Kirk Truong MD GI PROCEDURE ORDERA LIZABETHS [facility] [place] [address] documented in this encounter Visit Diagnoses Diagnosis Special screening for malignant neoplasms, colon Diagnosis unknown Other unknown and unspecified cause of morbidity or mortality documented in this encounter Administered Medications Inactive [...] (Anesthesia Volume Adjustment - Provider: Elpidio Reyes APRN-TERRAZZO INSTALLER) documented in this encounter Care Teams Director Public Relationship Specialty Start [place] [address] [facility] [address] [place] [address] PCP - General Internal Medicine 03/31/18 05/30/22 Etienne Florez MD Orthopedic Surgery 12/09/14 [place] [address] [facility] [address] [place] [address] Oncology 09/15/17 [place] [address] [facility] [address] [place] [address] Neurology 06/26/18 [place] [address] [facility] [address] [place] [address] Cardiovascular Disease 06/26/18 Russell Moran MD [address] [place] [address] Pulmonary Disease 06/26/18 Yuliya Ibarra MD [address] [facility] [address] [place] [address] Endocrinology 06/26/18 Phuong Callejas DPM [address] [place], [place] [id number] Podiatry 06/26/18 Sy Barrientos MD [address] [place] [address] Ophthalmology 06/26/18 [place] [address] [address] Pulmonary Disease 06/26/18 Rico Gasca MD [address] [place] [address] [address] [place] [address] Urology 06/26/18 Elle Landaverde MD [address] [facility] [address] [place] [address] Vascular Surgery 06/26/18 Kirk Truong MD [address] [facility] [address] [place] [address] Gastroenterology 06/26/18 [place] [address] [place] [address] General Surgery 06/26/18 documented as of this encounter
--- OUTSIDE RECORDS SUMMARY | 2024-05-26 12:39 | XMS_ITS | Encounter Summary ---
Author Organization [facility] Address [address] [place] [address] Care Team Providers Care Home Performance Consultant Name Role Phone Etinene Florez MD Unavailable [phone] Enrique Gonzalez MD Unavailable [phone] Theresa Camargo MD Primary Care Provider [phone] Nelson Ross MD Unavailable Laz Valencia MD Unavailable Russell Moran MD Unavailable Yuliya Ibarra MD Unavailable Phuong Callejas DPM Unavailable [phone] Sy Barrientos MD Unavailable [phone] Russell Moran MD Unavailable Rico Gasca MD Unavailable Elle Landaverde MD Unavailable Kirk Truong MD Unavailable [phone] Shira Love DO Unavailable [phone] Theresa Camargo MD Unavailable [phone] Reason for Visit * Reason Onset Date Comments Home Health 05/17/2019 Encounter Details Date Type Department Care Team (Late st Contact Info) Description 05/17/2019 Telephone [facility] - Family Medicine [address] [facility] [address] [place] [address] [place] [address] [facility] [address] [place] [address] Home Health Social History Tobacco [...] * Telephone Encounter - Jina Haskins - 05/17/2019 1:29 PM CST A verbal Ok per Dr. Camargo S ORDER PROCESSOR * Telephone Encounter - Wanda Castro - 05/17/2019 12:54 PM CST AW [facility] wants to know will PCP continue to follow for home care after pt release from hospital on 05/16 S ORDER PROCESSOR documented in this encounter Plan of Treatment Not on file documented as of this encounter Goals Goal Patient Goal Type Associated Problems Recent Progress Patient-Stated? 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 8:09 AM SALES ORDER PROCESSOR) No VilmasarthakAlisa marks HEMOGLOBIN A1C < 7.0 Result Component 5.4( 12:00 AM CDT) No Alisa Jaramillo documented as of this encounter Visit Diagnoses Not on filedocumented in this encounter Care Teams Home Performance Consultant Relationship Specialty Start [place] [address] [facility] [address] [place] [address] PCP - General Internal Medicine 03/31/18 05/30/22 [place] [address] [facility] [address] [place] [address] PCP - Attributed-MSSP 04/18/19 06/18/19 Etienne Florez MD Orthopedic Surgery 12/09/14 [place] [address] [address] Oncology 09/15/17 [place] [address] [facility] [address] [place] [address] Neurology 06/26/18 [place] [address] [phone] Cardiovascular Disease 06/26/18 [place] [address] [id number] Pulmonary Disease 06/26/18 Yuliya Ibarra MD [address] [place] [address] Endocrinology 06/26/18 Phuong Callejas DPM [address] [place], [place] [id number] Podiatry 06/26/18 Sy Barrientos MD [address] [place] [address] [place] [address] Ophthalmology 06/26/18 [place] [address] [id number] Pulmonary Disease 06/26/18 Rico Gasca MD [address] [facility] [address] [place] [address] Urology 06/26/18 Elle Landaverde MD [address] [facility] [address] [place] [address] Vascular Surgery 06/26/18 Kirk Truong MD [address] [facility] [address] [place] [address] Gastroenterology 06/26/18 [place] [address] [address] General Surgery 06/26/18 documented as of this encounter
--- OUTSIDE RECORDS SUMMARY | 2024-05-26 12:39 | XMS_ITS | Encounter Summary ---
Author Organization [facility] Address [address] [place] [address] Care Team Providers Care Nylon Winder Name Role Phone Etienne Florez MD Unavailable Enrique Gonzalez MD Unavailable [phone] Theresa Camargo MD Primary Care Provider Nelson Ross MD Unavailable [phone] Laz Valencia MD Unavailable Russell Moran MD Unavailable Yuliya Ibarra MD Unavailable [phone] Phuong Callejas DPM Unavailable Sy Barrientos MD Unavailable Russell Moran MD Unavailable Rico Gasca MD Unavailable Elle Landaverde MD Unavailable Kirk Truong MD Unavailable Shira Love DO Unavailable [phone] Reason for Visit * Reason Onset Date Comments Question 04/12/2019 Encounter Details Date Type Department Care Team (Late st Contact Info) Description 04/12/2019 Telephone [facility] - Family Medicine [address] [facility] [address] [place] [address] [place] [address] [facility] [address] [place] [address] Question Social History Tobacco Use [...] * Telephone Encounter - Jina Haskins - 04/12/2019 4:17 PM CST I called the patient and made an appt for 04/13/19 CAR DRIVER * Telephone Encounter - Theresa Camargo MD - 04/12/2019 3:39 PM CST We don't treat glucose in the urine. What is her blood sugar? If they do not have a way to check her blood sugar then when she comes in for me to look at the ulcers we can check her blood sugar at that time. I will send diflucan for her yeast. She needs to come in so we can look at the pressure ulcers. Diflucan will be one pill /week for 4 weeks. I will also send nystatin powder for the groin. Ifpossible see if she can get in here before the holiday with me Ajit or Sena. CAR DRIVER * Telephone Encounter - Dustin Castroa - 04/12/2019 2:03 PM CST Pts daughter stated that while pt was getting her urinary catheter replaced they discovered pressure ulcers and fungal around groin area. Requesting medication be ordered Pts daughter also stated that her mothers glucose level was 3+ according to her UA. CAR DRIVER documented in this encounter Plan of Treatment Not on file documented as of this encounter Goals Goal Patient Goal Type Associated Problems Recent Progress Patient-Stated? 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 8:09 AM TOW CAR DRIVER) No Alisa Jaramillo HEMOGLOBIN A1C < 7.0 Result Component 5.4( 12:00 AM CDT) No Alisa Jaramillo documented as of this encounter Visit Diagnoses Not on filedocumented in this encounter Care Teams Nylon Winder Relationship Specialty Start [place] [address] [address] [place] [address] PCP - General Internal Medicine 03/31/18 05/30/22 Etienne Florez MD Orthopedic Surgery 12/09/14 [place] [address] [facility] [address] [place] [phone] Oncology 09/15/17 [place] [address] [address] [address] [place] [phone] Neurology 06/26/18 [place] [address] [facility]] [address] [place] [address] Cardiovascular Disease 06/26/18 [place] [address] [place] [id number] Pulmonary Disease 06/26/18 Yuliya Ibarra MD [address] [facility] [address] [place] [phone] Endocrinology 06/26/18 Phuong Callejas DPM [address] [place], [place] [phone] Podiatry 06/26/18 Sy Barrientos MD [address] [place] [address] [place] [address] Ophthalmology 06/26/18 [place] [address] [place] [id number] Pulmonary Disease 06/26/18 Rico Gasca MD [address] [facility] [address] [place] [address] Urology 06/26/18 Elle Landaverde MD [address] [facility] [address] [place] [address] Vascular Surgery 06/26/18 Kirk Truong MD [address] [facility] [address] [place] [address] Gastroenterology 06/26/18 [place] [address] [place] [address] General Surgery 06/26/18 documented as of this encounter
--- OUTSIDE RECORDS SUMMARY | 2024-05-26 12:39 | XMS_ITS | Encounter Summary ---
Author Organization [facility] Address [address] [place] [address] Care Team Providers Care Ware Finisher Name Role Phone Etienne Florez MD Unavailable [phone] Enrique Gonzalez MD Unavailable [phone] Theresa Camargo MD Primary Care Provider Nelson Ross MD Unavailable [phone] Laz Valencia MD Unavailable Russell Moran MD Unavailable Yuliya Ibarra MD Unavailable [phone] Phuong Callejas DPM Unavailable [phone] Sy Barrientos MD Unavailable Russell Moran MD Unavailable [phone] Rico Gasca MD Unavailable Elle Landaverde MD Unavailable [phone] Kirk Truong MD Unavailable Shira Love Unavailable [phone] Reason for Visit * Reason Comments Follow-up 4 month Encounter Details Date Type Department Care Team (Late st Contact Info) Description 03/05/2019 9:45 AM CDT Office Visit [facility] Family Medicine [address] [facility] [address] [place] [address] [place] [address] [facility] [address] [place] [address] Chronic atrial fibrillation (HCC) (Primary Dx); Type 2 diabetes mellitus without complication, with long-term current use of insulin (HCC); TIA (transient ischemic attack); Primary hypothyroidism; Hyperparathyroidism (HCC); Anemia, unspecified type; Vitamin D deficiency; Malignant neoplasm of upper-outer quadrant of left breast in female, estrogen receptor positive (HCC); Essential hypertension; Mixed hyperlipidemia; Uncomplicated asthma, unspecified asthma severity, unspecified whether persistent (HCC); Influenza vaccine needed; Coronary artery disease involving [place] heart without angina pectoris, unspecified vessel or lesion type; HSP (hereditary spastic paraplegia) (HCC) Social History Tobacco Use Types Packs/Day [...] Sign Reading Time Taken Comments Blood Pressure 118/64 03/05/2019 9:54 AM CDT Pulse 57 03/05/2019 9:54 AM CDT Temperature - - Respiratory Rate 18 03/05/2019 9:54 AM CDT Oxygen Saturation 90% 03/05/2019 9:54 AM CDT Inhaled Oxygen Concentration - - Weight 89.6 kg (197 lb 9.6 oz) 03/05/2019 9:54 A M CDT Height 165.1 cm (5' 5 ) 03/05/2019 9:54 AM CDT Body Mass Index 32.88 03/05/2019 9:54 AM CDT documented in this encounter Functional [...] Progress Notes * Theresa Camargo MD - 03/05/2019 9:45 AM CDT SUBJECTIVE: Perla Leon is a 78 year old female with Chief Complaint Patient presents with ??? Follow-up 4 month Past Medical History: Diagnosis Date ??? Asthma [...] T1cN0(i-)M0, stage IA. ER pos 97% (strong), AK pos 23% (moderate), Her-2 neg (1+ on [...] Not on file Occupational History ??? 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 Smoking status: Never Smoker ??? Smokeless tobacco: Never Used Substance and Sexual Activity ??? Alcohol use: No Alcohol/week: 0.0 standard drinks ??? Drug use: No ??? Sexual activity: Not on file Other Topics Concern ??? Not on file Social History Narrative ??? Not on file Family History Problem Relation Age of Onset ??? Cancer - Breast Mother ??? Coronary Artery Disease Father CHF ??? Coronary Artery Disease Brother CHF Current Outpatient Medications Medication ??? albuterol HFA (PROAIR HFA) 108 (90 BASE) MCG/ACT inhaler ??? amitriptyline (ELAVIL) 25 MG tablet ??? anastrozole (ARIMIDEX) 1 MG tablet ??? aspirin (ASPIRIN) 81 MG tablet ??? calcium carbonate-vitamin D (CALTRATE 600+D) 600-400 MG-UNIT tablet ??? clopidogrel (PLAVIX) 75 MG tablet ??? Cyanocobalamin (B-12) 1000 MCG TBCR ??? empagliflozin (JARDIANCE) 10 MG tablet ??? [...] tablet ??? MYRBETRIQ 50 MG tablet ??? polyethyl glycol-propyl glycol (SYSTANE) 0.4-0.3 % ophth solution ??? polyethylene glycol 3350 (MIRALAX) packet ??? potassium chloride ER (KLOR-CON) 10 MEQ tablet ??? PROLENSA 0.07 % opthalmic solution ??? psyllium (METAMUCIL) 58.6 % powder ??? rosuvastatin (CRESTOR) 10 MG tablet ??? sitaGLIPtin (JANUVIA) 50 MG tablet ??? verapamil SR 24hr (VERELAN) 240 MG capsule No current facility-administered medications for this visit. HPI: here for follow up on: History of TIA, diabetes, hypothyroidism, vitamin-D deficiency, AFib, anemia, hyperparathyroidism, hypertension, history of breast cancer, asthma elevated cholesterol and coronary artery disease. She is a lot issues with unsteady gait as well but she has hereditary spastic paraplegia and is seen by Neurology for this on a regular basis. She follows an eye doctor for glaucoma and cataracts. She has multiple specialists including Endocrinology GI Neurology and eye doctor, And Hematology. Weight is good and blood pressure is good today. Here with her daughter today. And the daughter helped with a visit with dad who was also present for his visit today. No chest pain. No SOB/wheezing. No abdominal pain. No nvdc. No edema. Needs to refill meds and update labs. Patient Care Team: Theresa Camargo MD as PCP - General (Internal Medicine) Brooke Haynes APRN-CNP as PCP - [facility] Etienne Florez MD (Orthopedic Surgery) Enrique Gonzalez [...] OBJECTIVE: Wt Readings from Last 3 Encounters: 03/05/19 89.6 kg (197 lb 9.6 oz) 02/26/19 86.8 kg (191 lb 6.4 oz) 02/22/19 89.8 kg (198 lb) Temp Readings from Last 3 Encounters: 02/26/19 98.2 ??F (36.8 ??C) (Temporal) 02/17/19 97.8 ??F (36.6 ??C) (Oral) 01/04/19 97.9 ??F (36.6 ??C) (Oral) BP Readings from Last 3 Encounters: 03/05/19 118/64 02/26/19 118/68 02/22/19 112/60 Pulse Readings from Last 3 Encounters: 03/05/19 57 02/26/19 68 02/22/19 64 Body mass index is 32.88 kg/m??. General: alert, cooperative, no distress, oriented to person, place, and time, well appearing. Appears stated age. In a wheelchair for ease of transportation today. ENT: ENT exam normal, no neck nodes or sinus tenderness and bilateral TM normal without fluid or infection Heart: normal rate, regular rhythm, normal S1, S2, 3/6 murmurs, rubs, clicks or gallops Lungs: clear to auscultation bilaterally Extremities: no clubbing, cyanosis or edema Neuro: negative findings: alert, oriented x3 speech normal in context and clarity memory intact grossly cranial nerves II-XII intact Recent Labs Component Name 02/26/19 1027 11/06/18 1043 08/21/18 1026 06/12/17 0823 12/28/16 1814 SODIUM 142 144 142 - 141 - 145 POTASSIUM 3.4* 3.6 3.8 - 3.5 - 3.9 CHLORIDE 102 105 110* - 102 - 111* CO2 34* 30 27 - 31 - 27 BUN 17 18 13 - 15 - 17 CREATININE 0.82 0.66 0.71 - 0.92 - 0.97 GLUCOSE 150* 82 147* - 90 - 132* CALCIUM 10.6* 10.5* 10.0 - 10.4 - 9.7 ALBUMIN - 3.9 - - 4.2 - 3.6 ALKPHOS - 75 - - 90 - 127* ALT - 16 - - 25 AST - 15 - - - 18 TBIL - 0.2 - - 0.4 - 0.2 TPROT - 6.1* - - 6.6 - 6.6 EGFR >60 >60 >60 - 60 - 56 - = values in this interval not displayed. Recent Labs Component Name 11/06/18 1043 WBC 7.2 RBC 4.59 HGB 11.2* HCT 38.2 MCV 83.2 MCH 24.4* MCHC 29.3* PLTCOUNT 327 Recent Labs Component Name 06/12/17 0823 12/30/16 0430 CHOL 113 89 TRIG 148 114 HDL 35* 34* LDLCALC 55 32 Recent Labs Component Name 11/06/18 1043 08/26/17 0413 05/02/17 HGBA1C 5.3 7.0* 7.1 Recent Labs Component Name 11/06/18 1043 05/02/17 12/30/16 0430 TSH 2.9182 5.24 3.55 Recent Labs Component Name 11/06/18 1043 06/13/16 1245 [id number] 28.5* 18.01* HEALTH MAINTENANCE: Health Maintenance Topic Date Due ??? INFLUENZA VACCINE (1) 01/17/2019 ??? HCC (Chart Reviewer Use Only) 02/06/2019 ??? DIABETES-FOOT EXAM WITH MONOFILAMENT 03/19/2019 ??? ZOSTER VACCINE (2 of 3) 06/05/2019 (Originally 10/19/2007) ??? DIABETES-HGB A1C 05/08/2019 ??? MAMMOGRAM 09/15/2019 ??? DIABETES-EYE EXAM 11/24/2019 ??? ANNUAL MEDICARE WELLNESS VISIT 01/05/2020 ??? DTAP/TDAP/TD VACCINES (4 - Td) 08/29/2025 ??? COLON CA SCREENING 02/17/2029 ??? PNEUMOCOCCAL VACCINE 65+ Completed ??? BONE DENSITY TESTING Completed ??? HIB VACCINE Aged Out ??? MENINGOCOCCAL VACCINE Aged Out ASSESSMENT: ICD-10-CM 1. Chronic atrial fibrillation I48.20 2. Type 2 diabetes mellitus without complication, with long-term current use of insulin E11.9 COMPREHENSIVE METABOLIC PANEL Z79.4 HEMOGLOBIN A1C 3. TIA (transient ischemic attack) G45.9 COMPREHENSIVE METABOLIC PANEL 4. Primary hypothyroidism E03.9 5. Hyperparathyroidism E21.3 COMPREHENSIVE METABOLIC PANEL 6. Anemia, unspecified type D64.9 CBC WITH DIFFERENTIAL 7. Vitamin D deficiency E55.9 VITAMIN D 25-HYDROXY 8. Malignant neoplasm of upper-outer quadrant of left breast in female, estrogen receptor positive C50.412 Z17.0 9. Essential hypertension I10 10. Mixed hyperlipidemia E78.2 11. Uncomplicated asthma, unspecified asthma severity, unspecified whether persistent J45.909 12. Influenza vaccine needed Z23 FLU VACCINE TRI INC ANTIG PF 13. Coronary artery disease involving [place] heart without angina pectoris, unspecified vessel or lesion type I25.10 14. HSP (hereditary spastic paraplegia) G11.4 PLAN: Orders Placed This Encounter ??? FLU VACCINE TRI INC ANTIG PF ??? CBC WITH DIFFERENTIAL ??? COMPREHENSIVE METABOLIC PANEL ??? VITAMIN D 25-HYDROXY ??? HEMOGLOBIN A1C Update routine blood work. She is having some issues with her eyes but she seeing her eye doctor ashleigh regular basis and it sounds like they have that under control. She is on her same current medication. They had questions about her vitamin-D dose. She has 1 calcium with D and another separate D and they are trying to figure out if her dosing is correct. I told him not to change anything with what they are doing now and once I get the lab I will let her know if that is the right amount. documented in this encounter Plan of Treatment Not on file documented as of this encounter Goals Goal Patient Goal Type Associated Problems Recent Progress Patient-Stated? 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 8:09 AM BRACELET FORMER) No Alisa Jaramillo HEMOGLOBIN A1C < 7.0 Result Component 5.4( 12:00 AM CDT) No Alisa Jaramillo documented as of this encounter Procedures Procedure Name Priority Date/Time Associated Diagnosis Comments HEMOGLOBIN A1C Routine 03/05/2019 1:02 PM CDT Type 2 diabetes mellitus without complication, with long-term current use of insulin (HCC) VITAMIN D 25-HYDROXY Routine 03/05/2019 1:02 PM CDT Vitamin D deficiency CBC W AUTO DIFFERENTIAL Routine 03/05/2019 1:01 PM CDT Anemia, unspecified type COMPREHENSIVE METABOLIC PANEL Routine 03/05/2019 1:00 PM CDT Type 2 diabetes mellitus without complication, with long-term current use of insulin (HCC) TIA (transient ischemic attack) Hyperparathyroidism (HCC) documented in this encounter Results * (ABNORMAL) HEMOGLOBIN A1C (03/05/2019 1:02 PM CDT) Hemoglobin A1c 6.4(H) 4.0 - 6.1 % [facility] INSURANCE BILL Comment:AVERAGE GLUCOSE MG/D L BLOOD 137 mg/dL Blood BLOOD SPECIMEN / Unknown 03/05/2019 1:02 PM CDT 03/05/2019 Narrative Resulting Agency Comment Lab Testing performed at: [place] [address] [address] ?? [place] [phone] Theresa Camargo MD LAB - CHEMISTRY ROWAN QUIROZ Performing Organization Address [facility]/ZIP Co de Phone Number [facility] INSURANCE BILL [address] [place] [address] * (ABNORMAL) VITAMIN D 25-HYDROXY (03/05/2019 1:02 PM CDT) Pathologist [facility] Vitamin D, 25 Hydroxy 28.4(L) 30 - 100 ng/mL [facility] INSURANCE BILL Comment: Vitamin D Status: ?Deficiency ? <20 ? ng/mL ?Insufficiency ?? 20-30 ??ng/mL ?Sufficiency ? 30-100 ng/mL ?Toxicity ? >100 ?ng/mL Blood BLOOD SPECIMEN / Unknown 03/05/2019 1:02 PM CDT 03/05/2019 Narrative Resulting Agency Comment Lab Testing performed at: [place] [id number] ?? [place] [id number] Theresa Camargo MD LAB - CHEMISTRY ROWAN QUIROZ Performing Organization Address [facility] Co de Phone Number [facility] INSURANCE BILL [address] [place] [address] * (ABNORMAL) CBC WITH DIFFERENTIAL (03/05/2019 1:01 PM CDT) Pathologist [facility] WBC 7.0 4.4 - 10.7 x10E9/L [facility] INSURANCE BILL RBC 4.69 3.80 - 5.20 x10E12/L [facility] INSURANCE BILL Hemoglobin 12.6 12.0 - 15.6 gm/dL [facility] INSURANCE BILL Hematocrit 41.0 35.9 - 45.5 % [facility] INSURANCE BILL MCV 87.4 80.7 - 98.3 fl [facility] INSURANCE BILL MCH 26.9 26.7 - 34.0 pg [facility] INSURANCE BILL MCHC 30.7(L) 30.8 - 35.9 gm/dL [facility] INSURANCE BILL RDW 16.3(H) 12.1 - 14.9 % [facility] INSURANCE BILL Platelet Count 319 153 - 416 x10E9/L [facility] INSURANCE BILL Comment:MPV FL BLOOD ([facility]) 1 1.2 fl 9.4-12.9 Granulocytes % 67.2 44.0 - 73.0 % [facility] INSURANCE BILL Lymphocytes % 19.5(L) 20.0 - 43.0 % [facility] INSURANCE BILL Monocytes % 9.1 5.0 - 13.0 % [facility] INSURANCE BILL Eosinophils % 2.9 0.0 - 6.0 % [facility] INSURANCE BILL Basophils % 0.6 0.0 - 2.0 % [facility] INSURANCE BILL Granulocytes Absolute 4.68 2.01 - 7.14 x10E9/L [facility] INSURANCE BILL Lymphocytes Absolute 1.36 1.07 - 3.94 x10E9/L [facility] INSURANCE BILL Monocytes Absolute 0.63 0.26 - 1.07 x10E9/L [facility] INSURANCE BILL Eosinophils Absolute 0.20 0 - 0.47 x10E9/L [facility] INSURANCE BILL Basophils Absolute 0.04 0 - 0.08 x10E9/L [facility] INSURANCE BILL Immature Granulocytes 0.7 0 - 1 % [facility] INSURANCE BILL Immature Granulocytes Absolute 0.05 0.00 - 0.06 x10E9/L [facility] INSURANCE BILL nRBC 0 /100 WBC [facility] INSURANCE BILL Blood BLOOD SPECIMEN / Unknown 03/05/2019 1:01 PM CDT 03/05/2019 Narrative Resulting Agency Comment Lab Testing performed at: [facility] [address] [address] ?? [place] [phone] Theresa Camargo MD LAB - HEMATOLOGY ORD ERABLES [facility] INSURANCE BILL [address] [place] [address] * (ABNORMAL) COMPREHENSIVE METABOLIC PANEL (03/05/2019 1:00 PM CDT) Glucose 195(H) 70 - 105 mg/dL [facility] INSURANCE BILL BUN 14 9.8 - 20.1 mg/dL [facility] INSURANCE BILL Creatinine 0.81 0.57 - 1.11 mg/dL [facility] INSURANCE BILL eGFR by MDRD >60 mL/min/1.7 3m2 [facility] INSURANCE BILL eGFR by MDRD >60 mL/min/1.7 3m2 [facility] INSURANCE BILL Sodium 141 136 - 145 mmol/L [facility] INSURANCE BILL Potassium 3.1(L) 3.5 - 5.1 mmol/L [facility] INSURANCE BILL Chloride 102 98 - 107 mmol/L [facility] INSURANCE BILL CO2 28 23 - 31 mmol/L [facility] INSURANCE BILL Calcium 10.4(H) 8.4 - 10.2 mg/dL [facility] INSURANCE BILL Protein Total 6.2(L) 6.4 - 8.3 gm/dL [facility] INSURANCE BILL Albumin 3.9 3.2 - 4.6 gm/dL [facility] INSURANCE BILL Bilirubin Total 0.3 0.2 - 1.0 mg/dL [facility] INSURANCE BILL Alkaline Phosphatase 95 40 - 150 U/L [facility] INSURANCE BILL AST 17 5 - 34 U/L [facility] INSURANCE BILL ALT 20 0 - 61 U/L [facility] INSURANCE BILL Blood BLOOD SPECIMEN / Unknown 03/05/2019 1:00 PM CDT 03/05/2019 Narrative Resulting Agency Comment Lab Testing performed at: [facility] [address] [address] ?? [facility] [phone] Theresa Camargo MD LAB - CHEMISTRY ROWAN QUIROZ [facility] INSURANCE BILL [address] [place] [address] documented in this encounter Visit Diagnoses Diagnosis Chronic atrial fibrillation (HCC)- Primary Atrial fibrillation Type 2 diabetes mellitus without complication, with long-term current use of insulin (HCC) TIA (transient ischemic attack) Unspecified transient cerebral ischemia Primary hypothyroidism Unspecified hypothyroidism Hyperparathyroidism (HCC) Anemia, unspecified type Vitamin D deficiency Malignant neoplasm of upper-outer quadrant of left breast in female, estrogen receptor positive (HCC) Essential hypertension Mixed hyperlipidemia Uncomplicated asthma, unspecified asthma severity, unspecified whether persistent (HCC) Influenza vaccine needed Need for prophylactic vaccination and inoculation against influenza Coronary artery disease involving [place] heart without angina pectoris, unspecified vessel or lesion type HSP (hereditary spastic paraplegia) (HCC) Hereditary spastic paraplegia documented in this encounter Care Teams Ware Finisher Relationship Specialty [place] [address] [facility] [address] [place] [address] PCP - General Internal Medicine 03/31/18 05/30/22 Etienne Florez MD Orthopedic Surgery 12/09/14 [place] [address] [facility] [address] [place] [address] Oncology 09/15/17 [place] [address] [facility] [address] [place] [address] Neurology 06/26/18 [place] [address] [facility] [address] [place] [address] Cardiovascular Disease 06/26/18 [place] [address] [facility] [address] [place] [address] Pulmonary Disease 06/26/18 Yuliya Ibarra MD [address] [facility] [address] [place] [address] Endocrinology 06/26/18 Phuong Callejas DPM [address] [place], [place] [id number] Podiatry 06/26/18 Sy Barrientos MD [address] [facility] [place] [address] Ophthalmology 06/26/18 [place] [address] [id number] Pulmonary Disease 06/26/18 Rico Gasca MD [address] [place] [address] Urology 06/26/18 Elle Landaverde MD [address] [place] [address] Vascular Surgery 06/26/18 Kirk Truong MD [address] [place] [address] Gastroenterology 06/26/18 [place] [address] [address] General Surgery 06/26/18 documented as of this encounter
--- OUTSIDE RECORDS SUMMARY | 2024-05-26 12:39 | XMS_ITS | Encounter Summary ---
Author Organization [facility] Address [address] [place] [address] Care Team Providers Care Explosives Handler Name Role Phone Etienne Florez MD Unavailable Enrique Gonzalez MD Unavailable [phone] Theresa Camargo MD Primary Care Provider [phone] Nelson Ross MD Unavailable [phone] Laz Valencia MD Unavailable Russell Moran MD Unavailable [phone] Yuliya Ibarra MD Unavailable Phuong Callejas DPM Unavailable Sy Barrientos MD Unavailable Russell Moran MD Unavailable Rico Gasca MD Unavailable [phone] Elle Landaverde MD Unavailable Kirk Truong MD Unavailable [phone] Shira Love DO Unavailable [phone] Theresa Camargo MD Unavailable [phone] Reason for Visit * Reason Onset Date Comments Question 05/05/2019 Encounter Details Date Type Department Care Team (Late st Contact Info) Description 05/05/2019 Telephone [facility] [address] [facility] [address] Hussain Norris MD [address] [place] [address] [address] [place] [address] Question Social History Tobacco Use Types Packs/Day [...] * Telephone Encounter - Nelly Beasley - 05/05/2019 10:35 AM CST Patient called stating she emptied her bag and it was thick yellow. She does not have any burning or fever and says she has been drinking lots of water. Per Brooke, patient was informed that she should be drinking 64 oz of water per day. Patient states she has not been drinking that much and will try that. She will call us back if that does not help. ER DIRECTOR LEAD TEACHER documented in this encounter Plan of Treatment Not on file documented as of this encounter Goals Goal Patient Goal Type Associated Problems Recent Progress Patient-Stated? 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 8:09 AM CENTER DIRECTOR LEAD TEACHER) No Alisa Jaramillo HEMOGLOBIN A1C < 7.0 Result Component 5.4( 12:00 AM CDT) No Alisa Jaramillo documented as of this encounter Visit Diagnoses Not on filedocumented in this encounter Care Teams Explosives Handler Relationship Specialty Start [place] [address] [facility] [address] [place] [address] PCP - General Internal Medicine 03/31/18 05/30/22 [place] [address] [facility] [address] [place] [address] PCP - Attributed-MSSP 04/18/19 06/18/19 Etienne Florez MD Orthopedic Surgery 12/09/14 [place] [address] [facility] [address] [place] [phone] Oncology 09/15/17 [place] [address] [facility] [address] [place] [address] Neurology 06/26/18 [place] [address] [facility] [address] [place] [address] Cardiovascular Disease 06/26/18 [place] [address] [address] Pulmonary Disease 06/26/18 Yuliya Ibarra MD [address] [place] [address] Endocrinology 06/26/18 Phuong Callejas DPM [address] [place], [place] [phone] Podiatry 06/26/18 Sy Barrientos MD [address] [place] [address] [place] [address] Ophthalmology 06/26/18 [place] [address] [id number] Pulmonary Disease 06/26/18 Rico Gasca MD [address] [place] [address] Urology 06/26/18 Elle Landaverde MD [address] [place] [address] Vascular Surgery 06/26/18 Kirk Truong MD [address] [facility] [address] [place] [address] Gastroenterology 06/26/18 [place] [address] [place] [address] General Surgery 06/26/18 documented as of this encounter
--- OUTSIDE RECORDS SUMMARY | 2024-05-26 12:39 | XMS_ITS | Encounter Summary ---
Author Organization [facility] Address [address] [address] Care Team Providers Care Ecclesiastical Worker Name Role Phone Etienne Florez MD Unavailable Enirque Gonzalez MD Unavailable [phone] Theresa Camargo MD Primary Care Provider Nelson Ross MD Unavailable [phone] Laz Valencia MD Unavailable Russell Moran MD Unavailable [phone] Yuliya Ibarra MD Unavailable Phuong Callejas DPM Unavailable Sy Barrientos MD Unavailable Russell Moran MD Unavailable Rico Gasca MD Unavailable [phone] Elle Landaverde MD Unavailable [phone] Kirk Truong MD Unavailable [phone] Shira Love DO Unavailable [phone] Reason for Visit * Reason Comments Follow-up Encounter Details Date Type Department Care Team (Latest Contact Info) Description 02/22/2019 10:40 AM CDT Office Visit [facility] [address] [facility] [address] [place] [address] [place] [address] [facility] [address] [place] [address] 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); Lumbar radiculopathy Social History Tobacco Use Types Packs/Day Years [...] Sign Reading Time Taken Comments Blood Pressure 112/60 02/22/2019 11:02 AM CDT Pulse 64 02/22/2019 11:02 AM CDT Temperature - - Respiratory Rate 14 02/22/2019 11:02 AM CDT Oxygen Saturation 94% 02/22/2019 11:02 AM CDT Inhaled Oxygen Concentration - - Weight 89.8 kg (198 lb) 02/22/2019 11:02 AM CDT Height 165.1 cm (5' 5 ) 02/22/2019 11:02 AM CDT Body Mass Index 32.95 02/22/2019 11:02 AM CDT documented in this encounter Functional [...] Instructions * Patient Instructions* Eva Sinha - 02/22/2019 11:47 AM CDT Call physician if symptoms worsen or with any questions. Take Medications as prescribed. For descriptions of a variety of neurological conditions please visit: [email or web address] documented in this encounter Progress Notes * Nelson Ross MD - 02/22/2019 11:28 AM CDT CC: HSP IH: Less leg pain. Never went to pain mgmt. Feels more problems with legs. Bladder is bad but better. Feels bladder meds is affecting memory. Dr Gasca is retiring. Blood sugars are OK. No new stroke like events Outpatient Medications Marked as Taking for the 02/22/19 encounter (Office Visit) with Nelson Ross MD [...] affected area as needed for Other ??? multivitamin with iron (ONE A DAY [...] diarrhea. Genitourinary: Positive for frequency and urgency. Musculoskeletal: Positive for back pain and falls. Neurological: Positive for dizziness. Exam: BP 112/60 Pulse 64 Resp 14 Ht 1.651 m (5' 5 ) Wt 89.8 kg (198 lb) SpO2 94% BMI 32.95 kg/m2 In WC Bilateral referred bruits from murmur No drift Hips are weak Reflexes brisk to knees and AJ 0/0 Slight edema No ambulatory Xray cervical and lumbar reviewed and degenerative changes ASSESSMENT: HSP Lumbar radiculopathy Cervical spine disease Remote hx of stroke PLAN: Continue current meds 3 month OV documented in this encounter Plan of Treatment Not on file documented as of this encounter Goals Goal Patient Goal Type Associated Problems Recent Progress Patient-Stated? 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 Lumbar radiculopathy Thoracic or lumbosacral neuritis or radiculitis, unspecified documented in this encounter Care Teams Ecclesiastical Worker Relationship Specialty [place] [address] [facility] [address] [place] [address] PCP - General Internal Medicine 03/31/18 05/30/22 Etienne Florez MD Orthopedic Surgery 12/09/14 [place] [address] [facility] [address] [place] [address] Oncology 09/15/17 [place] [address] [facility] [address] [place] [address] Neurology 06/26/18 [place] [address] [id number] Cardiovascular Disease 06/26/18 [place] [address] [address] Pulmonary Disease 06/26/18 Yuliya Ibarra MD [address] [place] [address] Endocrinology 06/26/18 Phuong Callejas DPM [address] [place], [place] [id number] Podiatry 06/26/18 Sy Barrientos MD [address] [place] [address] [place] [address] Ophthalmology 06/26/18 [place] [address] [address] Pulmonary Disease 06/26/18 Rico Gasca MD [address] [place] [address] Urology 06/26/18 Elle Landaverde MD [address] [place] [address] Vascular Surgery 06/26/18 Kirk Truong MD [address] [facility] [facility] [address] [place] [address] Gastroenterology 06/26/18 [place] [address] [place] [address] [place] [address] General Surgery 06/26/18 documented as of this encounter
--- OUTSIDE RECORDS SUMMARY | 2024-05-26 12:40 | XMS_ITS | Encounter Summary ---
Author Organization [facility] Address [address] [place] [address] Care Team Providers Care Director Of Strategic Communications Name Role Phone Etienne Florez MD Unavailable Enrique Gonzalez MD Unavailable [phone] Theresa Camargo MD Primary Care Provider Nelson Ross MD Unavailable Laz Valencia MD Unavailable Russell Moran MD Unavailable Yuliya Ibarra MD Unavailable [phone] Phuong Callejas DPM Unavailable Sy Barrientos MD Unavailable [phone] Russell Moran MD Unavailable Rico Gasca MD Unavailable Elle Landaverde MD Unavailable Kirk Truong MD Unavailable [phone] Shira Love DO Unavailable [phone] Reason for Visit * Reason Onset Date Comments Results 07/24/2018 Encounter Details Date Type Department Care Team (Late st Contact Info) Description 07/24/2018 Telephone [facility] Family Medicine [address] [facility] [address] [place] [address] Brooke Haynes APRN-CNP [address] [facility] [address] [place] [address] Results Social History Tobacco Use [...] Telephone Encounter - Brooke Haynes APRN-CNP - 07/24/2018 8:23 AM FOOD STAND MANAGER Call to pt to report chest xray showed atelectasis or pneumonia in the right base, on the right antibiotic, see in 10 days. Breath in through nose and blow out through pursed lips 10 times every hourwhen awake. Spoke with pt. . STAND MANAGER documented in this encounter Plan of Treatment Not on file documented as of this encounter Goals Goal Patient Goal Type Associated Problems Recent Progress Patient-Stated? 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 8:09 AM FOOD STAND MANAGER) No VilmasarthakAlisa marks HEMOGLOBIN A1C < 7.0 Result Component 5.4( 12:00 AM CDT) No AllisonpeterAmberAlisa documented as of this encounter Visit Diagnoses Not on filedocumented in this encounter Care Teams Director Of Strategic Communications Relationship Specialty Start [place] [address] [facility] [address] [place] [address] PCP - General Internal Medicine 03/31/18 05/30/22 Etienne Florez MD Orthopedic Surgery 12/09/14 [place] [address] [facility] [address] [place] [address] Oncology 09/15/17 [place] [address] [facility] [address] [place] [address] Neurology 06/26/18 [place] [address] [facility] [address] [place] [address] Cardiovascular Disease 06/26/18 [place] [address] [address] Pulmonary Disease 06/26/18 Yuliya Ibarra MD [address] [facility] [address] [place] [phone] Endocrinology 06/26/18 Phuong Callejas DPM [address] [place] [address] Podiatry 06/26/18 Sy Barrientos MD [address] [place] [address] [place] [address] Ophthalmology 06/26/18 [place] [address] [address] Pulmonary Disease 06/26/18 Rico Gasca MD [address] [phone] Urology 06/26/18 Elle Landaverde MD [address] [address] Vascular Surgery 06/26/18 Kirk Truong MD [address] [address] Gastroenterology 06/26/18 [place] [address] [id number] General Surgery 06/26/18 documented as of this encounter
--- OUTSIDE RECORDS SUMMARY | 2024-05-26 12:40 | XMS_ITS | Encounter Summary ---
Author Organization [facility] Address [address] [place] [address] Care Team Providers Care Patient Support Partner Name Role Phone Etienne Florez MD Unavailable Enrique Gonzalez MD Unavailable [phone] Theresa Camargo MD Primary Care Provider Nelson Ross MD Unavailable [phone] Laz Valencia MD Unavailable Russell Moran MD Unavailable Yuliya Ibarra MD Unavailable Phuong Callejas DPM Unavailable Sy Barrientos MD Unavailable [phone] Russell Moran MD Unavailable [phone] Rico Gasca MD Unavailable [phone] Elle Landaverde MD Unavailable Kirk Truong MD Unavailable Shira Love DO Unavailable [phone] Reason for Visit * Reason Comments URI Encounter Details Date Type Department Care Team (Late st Contact Info) Description 07/23/2018 3:15 PM CABIN WORKER Office Visit [facility] Family Medicine [address] [facility] [address] [place] [address] Brooke Haynes, [employer] [address] [facility] [address] [place] [address] Acute sinusitis, recurrence not specified, unspecified location (Primary Dx); Acute bronchitis, unspecified organism Social History Tobacco Use Types Packs/Day Years [...] Sign Reading Time Taken Comments Blood Pressure 120/56 07/23/2018 4:00 PM CABIN WORKER Pulse 64 07/23/2018 4:00 PM CABIN WORKER Temperature 36.7 ??C (98.1 ??F) 07/23/2018 4:00 PM CS T Respiratory Rate 18 07/23/2018 4:00 PM CABIN WORKER Oxygen Saturation - - Inhaled Oxygen Concentration - - Weight 89.5 kg (197 lb 6.4 oz) 07/23/2018 4:00 P M CABIN WORKER Height - - Body Mass Index 32.85 06/26/2018 2:17 PM CABIN WORKER documented in this encounter Functional Status Functional [...] * Patient Instructions* Brooke Haynes APRN-CNP - 07/23/2018 4:12 PM CABIN WORKER Tylenol for fever and or pain relief. Chloraseptic spray, cepacol lozenges, ice chips and popsicles will soothe the throat if needed. Salt water gargles will also soothe the throat, if needed. Avoid products that contain pseudoephedrine and phenylephrine as these can raise your blood pressure. Claritin, juan francisco or zyrtec one daily to decrease sinus drainage. [place] nasal spray, 2 spray every 2 - 4 hours will decrease sinus congestion. Mucinex DM 2 tablets of the regular strength tablets twice a day as needed for cough and sinus congestion and will not increase the blood pressure. If you prefer a syrup use Robitussin DM 2 teaspoons every 4 - 6 hours. Rest, drink plenty of fluids. Hot tea and brothy soups will help to decrease congestion and drainage. If not improved at the end of the antibiotic therapy, it may take the whole course, or if you worsen during course of treatment please return for follow up appointment. Eat yogurt, one single serving size container, any brand, any type or: Get acidophilus tablets and take 2 but not at the same time as the antibiotic. Florajen is a name brand probiotic. These will help replenish good bacteria in the colon that can be killed off while taking an antibiotic. Separate these by at least 3 hours from the antibiotic. We are checking an xray of the chest and will call with results. N WORKER documented in this encounter Progress Notes * Brooke Haynes APRN-CNP - 07/23/2018 4:21 PM CST SUBJECTIVE: Perla Leon is a 77 y.o. female here for: Chief Complaint Patient presents with ??? URI Past Medical History: Diagnosis Date ??? Asthma 2012 ??? Atrial fibrillation 2015 ??? Breast cancer left ??? Broken ankle 12/19/2003 ??? CAD (coronary artery disease) 60 % blockage 2010 ??? DM (diabetes mellitus) ??? Duodenal ulcer, unspecified as acute or chronic, without hemorrhage, perforation, or obstruction 1977 ??? Familial spastic paraplegia 1979 ??? Fracture of sacrum 05/1999 [facility] ??? Glaucoma 06/2003 ??? Heart murmur 01/27/2004, 03/13/2004 ??? HTN (hypertension) ??? 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 IBS (irritable bowel syndrome) ??? Lymphatic edema ??? Neuropathy ??? Obesity ??? CATY (obstructive sleep apnea) ??? Partial seizures 2000 ??? Pneumonia 1989, 08/2005, 07/2010 ??? Shingles 2002, 2006 ??? Small vessel disease, cerebrovascular ??? TIA (transient ischemic attack) 2000, 08/11/2008 HPI: pt received zithromax on 07-13-2018 and had been sick for several days before. Completed the antibiotic and the symptoms did not go away. Continues with sinus pressure, opaque drainage from the nose-darker on the left with some blood in it than on the right. Coughing but non productive. Had temp of 100 on one day. Did take some robitussin dm at some point. Review of systems negative except as noted in the HPI Family and social history on file and reviewed. Current Outpatient Prescriptions on File Prior to Visit Medication Sig [...] TABLET AT BEDTIME 90 tablet 0 ??? Cyanocobalamin (B-12) 1000 MCG TBCR Take [...] and evening meal 60 capsule 0 ??? lubiprostone (AMITIZA) 24 MCG capsule Take 1 capsule by mouth 2 times daily Reasons: Chronic Constipation of Unknown Cause (Patient not taking: Reported on 04/28/2018) 60 capsule 11 ??? menthol-zinc oxide (CALMOSEPTINE) 0.44-20.6 % ointment Apply to affected area as needed for Other ??? metOLazone (ZAROXOLYN) 2.5 MG tablet Take 2.5 mg by mouth every 7 days ??? multivitamin with iron (ONE A DAY WITH IRON) tablet Take 1 Tab by mouth once daily. ??? MYRBETRIQ 50 MG tablet ??? polyethyl glycol-propyl glycol (SYSTANE) 0.4-0.3 % ophth solution 1 drop ??? polyethylene glycol 3350 (MIRALAX) packet Take 17 g by mouth once daily ??? potassium chloride ER (KLOR-CON 10) 10 MEQ tablet The patient should only Take 4 tabs with breakfast 360 tablet 0 ??? psyllium (METAMUCIL) 58.6 % powder Take 1 Packet by mouth 3 times daily Reasons: Constipation ??? rosuvastatin (CRESTOR) 10 MG tablet Take 1 tablet by mouth at bedtime 90 tablet 3 ??? sitaGLIPtin (JANUVIA) 50 [...] ??? Sotalol Other Hair loss Social History Substance Use Topics ??? Smoking status: Never Smoker ??? Smokeless tobacco: Never Used ??? Alcohol use No . OBJECTIVE: Vitals: 07/23/18 1600 BP: 120/56 Pulse: 64 Resp: 18 Temp: 98.1 ??F (36.7 ??C) Weight: 89.5 kg (197 lb 6.4 oz) Body mass index is 32.85 kg/(m^2). General appearance - alert, well appearing, and in no distress Psych - alert and oriented to person, place, and time, normal affect ENT -Eyes: conjunctiva clear, no drainage. Ears: tm right pink, distorted light reflex, landmarks present; tm left pearly mcdaniel, positive light reflex, landmarks present. Nose: pink turbinates, clear drainage. Frontal and maxillary sinuses tender to palpation. Throat: pink, moist mucous membranes, tonsils not enlarged, moderate amount of clear drainage posterior pharynx. Neck - trachea midline, no thyromegaly, supple, full range of motion Lymph - no significant lymphadenopathy in the head, neck nor supraclavicular region. Lungs - unlabored, expiratory wheezes and rhonchi, symmetric air entry Negative egophony but rough,good anterior forced expiration without coarseness nor wheezing, positive fremitus. Heart - normal rate, regular rhythm, [...] Xll intact. ASSESSMENT Encounter Diagnoses Name Primary? Acute sinusitis, recurrence not specified, unspecified location Yes ??? Acute bronchitis, unspecified organism PLAN: Orders Placed This Encounter ??? XR CHEST 2VW Standing Status: Future Standing Expiration Date: 07/23/2019 Order Specific Question: Exam to be performed? Answer: Per Radiologist protocol ??? doxycycline hyclate (VIBRAMYCIN) 100 MG capsule Sig: Take 1 capsule by mouth 2 times daily for 10 days Dispense: 20 capsule Refill: 0 Tylenol for fever and or pain relief. Chloraseptic spray, cepacol lozenges, ice chips and popsicles will soothe the throat if needed. Salt water gargles will also soothe the throat, if needed. Avoid products that contain pseudoephedrine and phenylephrine as these can raise your blood pressure. Claritin, juan francisco or zyrtec one daily to decrease sinus drainage. [place] nasal spray, 2 spray every 2 - 4 hours will decrease sinus congestion. Mucinex DM 2 tablets of the regular strength tablets twice a day as needed for cough and sinus congestion and will not increase the blood pressure. If you prefer a syrup use Robitussin DM 2 teaspoons every 4 - 6 hours. Rest, drink plenty of fluids. Hot tea and brothy soups will help to decrease congestion and drainage. If not improved at the end of the antibiotic therapy, it may take the whole course, or if you worsen during course of treatment please return for follow up appointment. Eat yogurt, one single serving size container, any brand, any type or: Get acidophilus tablets and take 2 but not at the same time as the antibiotic. Florajen is a name brand probiotic. These will help replenish good bacteria in the colon that can be killed off while taking an antibiotic. Separate these by at least 3 hours from the antibiotic. We are checking an xray of the chest and will call with results. Further recommendations pending the above results and patient's clinical course. Follow-up visit 10 days prn. The patient indicates understanding of these issues and agrees with the plan. N WORKER * Nelly Koroma - 07/23/2018 3:57 PM CST Patient is here today for Uri symptoms. Blood pressure 120/56, pulse 64, temperature 98.1 ??F (36.7 ??C), temperature source Oral, resp. rate 18, weight 89.5 kg (197 lb 6.4 oz), not currently . N WORKER documented in this encounter Plan of Treatment Not on file documented as of this encounter Goals Goal Patient Goal Type Associated Problems Recent Progress Patient-Stated? 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 8:09 AM CABIN WORKER) No Alisa Jaramillo HEMOGLOBIN A1C < 7.0 Result Component 5.4( 12:00 AM CDT) No Alisa Jaramillo documented as of this encounter Results * XR CHEST 2VW (07/23/2018 4:44 PM CABIN WORKER) Anatomical Region Laterality Modality Chest Radiographic Mireya ging 07/23/2018 4:54 PM CABIN WORKER Narrative 07/23/2018 4:54 PM CABIN WORKER 2 views chest INDICATION: Shortness of breath COMPARISON: 08/25/2017 FINDINGS: There is cardiomegaly with patchy right basilar atelectasis versus infiltrate. There is vascular congestion. There are aortic calcifications. There is no pneumothorax. There are multiple surgical clips in the left breast. Reading Radiologist: Shakira García MD on 07/23/2018 at 4:54 PM Procedure Note Shakira García MD - 07/23/2018 2 views chest INDICATION: Shortness of breath COMPARISON: 08/25/2017 FINDINGS: There is cardiomegaly with patchy right basilar atelectasis versus infiltrate. There is vascular congestion. There are aortic calcifications. There is no pneumothorax. There are multiple surgical clips in the left breast. Reading Radiologist: Shakira García MD on 07/23/2018 at 4:54 PM Brooke Haynes REVENUE AGENT-[employer] DIAGNOSTIC IMAG ING ORDERABLES documented in this encounter Visit Diagnoses Diagnosis Acute sinusitis, recurrence not specified, unspecified location- Primary Acute bronchitis, unspecified organism Acute bronchitis, unspecified organism documented in this encounter Care Teams Patient Support Partner Relationship Specialty [place] [address] [facility] [address] [place] [address] PCP - General Internal Medicine 03/31/18 05/30/22 Etienne Florez MD Orthopedic Surgery 12/09/14 [place] [address] [facility] [address] [place] [address] Oncology 09/15/17 [place] [address] [facility] [address] [place] [address] Neurology 06/26/18 [place] [address] [facility] [address] [place] [address] Cardiovascular Disease 06/26/18 [place] [address] [address] Pulmonary Disease 06/26/18 Yuliya Ibarra MD [address] [facility] [address] [place] [address] Endocrinology 06/26/18 Phuong Callejas DPM [address] [place] [address] Podiatry 06/26/18 Sy Barrientos MD [address] [place] [address] [place] [address] Ophthalmology 06/26/18 [place] [address] [address] [address] [place] [address] Pulmonary Disease 06/26/18 Rico Gasca MD [address] [place] [address] Urology 06/26/18 Elle Landaverde MD [address] [place] [address] Vascular Surgery 06/26/18 Kirk Truong MD [address] [place] [address] Gastroenterology 06/26/18 [place] [address] [place] [address] General Surgery 06/26/18 documented as of this encounter
--- OUTSIDE RECORDS SUMMARY | 2024-05-26 12:40 | XMS_ITS | Encounter Summary ---
Author Organization [facility] Address [address] [address] Care Team Providers Care Director Labor Standards Name Role Phone Etienne Florez MD Unavailable [phone] Enrique Gonzalez MD Unavailable [phone] Theresa Camargo MD Primary Care Provider Nelson Ross MD Unavailable [phone] Laz Valencia MD Unavailable Russell Moran MD Unavailable Yuliya Ibarra MD Unavailable Phuong Callejas DPM Unavailable Sy Barrientos MD Unavailable [phone] Russell Moran MD Unavailable Rico Gasca MD Unavailable Elle Landaverde MD Unavailable [phone] Kirk Truong MD Unavailable Shira Love DO Unavailable [phone] Reason for Referral * Radiology Services (Urgent) - Closed Specialty Diagnoses / Procedures Referred By Alejandrina vale Referred To Contact Radiology Diagnoses Pneumonia of right lower lobe due to infectious organism Procedures CT CHEST W CONTRAST Brooke Haynes APRN-CNP [address] [facility] [address] [place] [address] [facility] [id number] [id number] Referral ID Status Reason Start Date Expiration Date Visits Re quested Visits Authorized [id number] Closed 08/06/2018 02/02/2019 1 1 Encounter Details Date Type Department Care Team (Late st Contact Info) Description 08/06/2018 Orders Only [facility] Medical [facility] - Family Medicine [address] [facility] [address] [place] [address] Brooke Haynes APRN-CNP [address] [facility] [address] [place] [address] Pneumonia of right lower lobe due to infectious organism Social History Tobacco Use Types Packs/Day [...] < 140/90 Blood Pressure 127/52(2022 8:09 AM ELECTROMEDICAL SERVICE ENGINEER) No YeceniaAlisa marks HEMOGLOBIN A1C < 7.0 Result Component 5.4( 12:00 AM CDT) No Alisa Jaramillo documented as of this encounter Results * CT CHEST W CONTRAST (08/07/2018 8:29 [...] on 08/07/2018 at 10:58 AM Brooke Haynes SOFTWARE PROGRAMMER-POLICE BOOKING OFFICER CT ORDERABLES documented in this encounter Visit Diagnoses Diagnosis Pneumonia of right lower lobe due to infectious organism- Primary Pneumonia of right lower lobe due to infectious organism documented in this encounter Care Teams Director Labor Standards Relationship Specialty [place] [address] [facility] [address] [place], [place] [id number] PCP - General Internal Medicine 03/31/18 05/30/22 Etienne Florez MD Orthopedic Surgery 12/09/14 [place] [address] [facility] [address] [place] [phone] Oncology 09/15/17 [place] [address] [facility] [address] [place] [phone] Neurology 06/26/18 [place] [address] [facility] [address] [place] [address] Cardiovascular Disease 06/26/18 [place] [address] [address] Pulmonary Disease 06/26/18 Yuliya Ibarra MD [address] [facility] [address] [place] [phone] Endocrinology 06/26/18 Phuong Callejas DPM [address] [place] [address] Podiatry 06/26/18 Sy Barrientos MD [address] [place] [address] [place] [address] Ophthalmology 06/26/18 [place] [address] [id number] Pulmonary Disease 06/26/18 Rico Gasca MD [address] [facility] [address] [place] [address] Urology 06/26/18 Elle Landaverde MD [address] [place] [address] Vascular Surgery 06/26/18 Kirk Truong MD [address] [place] [address] Gastroenterology 06/26/18 [place] [address] [place] [address] [place] [phone] General Surgery 06/26/18 documented as of this encounter
--- OUTSIDE RECORDS SUMMARY | 2024-05-26 12:40 | XMS_ITS | Encounter Summary ---
Author Organization [facility] Address [address] [facility] [place] [address] Care Team Providers Care Uniform Room Attendant Name Role Phone Etienne Florez MD Unavailable [phone] Enrique Gonzalez MD Unavailable [phone] Theresa Camargo MD Primary Care Provider Nelson Ross MD Unavailable Laz Valencia MD Unavailable Russell Moran MD Unavailable [phone] Yuliya Ibarra MD Unavailable [phone] Phuong Callejas DPM Unavailable Sy Barrientos MD Unavailable [phone] Russell Moran MD Unavailable Rico Gasca MD Unavailable Elle Landaverde MD Unavailable [phone] Kirk Truong MD Unavailable [phone] Shira Love DO Unavailable [phone] Reason for Visit * Reason Comments Refill Request Encounter Details Date Type Department Care Team (Late st Contact Info) Description 10/27/2018 Refill [facility] - Family Medicine [address] [facility] [address] [place] [address] Jarrell Garrison MD [address] [facility] [address] [place] [address] Refill Request Social History Tobacco Use Types [...] encounter Miscellaneous Notes * Telephone Encounter - Manasa Cary - 10/29/2018 1:49 PM CDT Perla Leon Requested Prescriptions Pending Prescriptions Disp Refills ??? rosuvastatin (CRESTOR) 10 MG tablet [Pharmacy Med Name: ROSUVASTATIN TABS 10MG] 90 tablet 3 Sig: TAKE 1 TABLET AT BEDTIME Allergies Allergen Reactions ??? Advair Diskus YEAS INFECTION ??? Aricept [Donepezil] Other I dont remember ??? Diltiazem Swelling ??? Metformin Diarrhea ??? Fluticasone Diarrhea ??? Piper Longum ??? Salmeterol Diarrhea ??? Sotalol Other Hair loss Last refill- 10/21/18 Last OV-10/06/18 Future OV-11/06/18 documented in this encounter Plan of Treatment Not on file documented as of this encounter Goals Goal Patient Goal Type Associated Problems Recent Progress Patient-Stated? 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) No Alisa Jaramillo HEMOGLOBIN A1C < 7.0 Result Component 5.4( 12:00 AM CDT) No Alisa Jaramillo documented as of this encounter Visit Diagnoses Not on filedocumented in this encounter Care Teams Uniform Room Attendant Relationship Specialty Start [place] [address] [facility] [address] [place] [address] PCP - General Internal Medicine 03/31/18 05/30/22 Etienne Florez MD Orthopedic Surgery 12/09/14 [place] [address] [facility] [address] [place] [phone] Oncology 09/15/17 [place] [address] [facility] [address] [place] [address] Neurology 06/26/18 [place] [address] [facility] [address] [place] [phone] Cardiovascular Disease 06/26/18 [place] [address] [address] Pulmonary Disease 06/26/18 Yuliya Ibarra MD [address] [place] [phone] Endocrinology 06/26/18 Phuong Callejas DPM [address] [place], [place] [phone] Podiatry 06/26/18 Sy Barrientos MD [address] [place] [address] Ophthalmology 06/26/18 [place] [address] [id number] Pulmonary Disease 06/26/18 Rico Gasca MD [address] [place] [address] Urology 06/26/18 Elle Landaverde MD [address] [place] [address] Vascular Surgery 06/26/18 Kirk Truong MD [address] [place] [address] Gastroenterology 06/26/18 [place] [address] [place] [address] [place] [phone] General Surgery 06/26/18 documented as of this encounter
--- OUTSIDE RECORDS SUMMARY | 2024-05-26 12:40 | XMS_ITS | Encounter Summary ---
Author Organization [facility] Address [address] [facility] [place] [address] Care Team Providers Care Slitter Cut Off Operator Name Role Phone Etienne Florez MD Unavailable [phone] Enrique Gonzalez MD Unavailable [phone] Theresa Camargo MD Primary Care Provider Nelson Ross MD Unavailable [phone] Laz Valencia MD Unavailable Russell Moran MD Unavailable Yuliya Ibarra MD Unavailable [phone] Phuong Callejas DPM Unavailable Sy Barrientos MD Unavailable Russell Moran MD Unavailable Rico Gasca MD Unavailable Elle Landaverde MD Unavailable Kirk Truong MD Unavailable Shira Love DO Unavailable [phone] Reason for Visit * Reason Comments Medicare Subsequent Annual Wellness Visi t Encounter Details Date Type Department Care Team (Late st Contact Info) Description 01/04/2019 11:00 AM CDT Office Visit [facility] [address] [facility] [address] [place] [address] Brooke Haynes APRN-SARA [address] [facility] [address] [place] [address] Routine general medical examination at a health care facility (Primary Dx) Social History Tobacco Use Types [...] Sign Reading Time Taken Comments Blood Pressure 112/58 01/04/2019 11:29 AM CDT Pulse 71 01/04/2019 11:29 AM CDT Temperature 36.6 ??C (97.9 ??F) 01/04/2019 1 1:29 AM CDT Respiratory Rate 18 01/04/2019 11:2 9 AM CDT Oxygen Saturation - - Inhaled Oxygen Concentration - - Weight 87.9 kg (193 lb 12.8 oz) 019 11:29 AM CDT Height - - Body Mass Index 32.25 12/17/2018 11:12 AM CDT documented in this encounter Functional [...] * Patient Instructions* Brooke Haynes APRN-CNP - 01/04/2019 11:50 AM CDT Consider new shingles shot available at the pharmacy, series of 2 initial and repeat in 2 - [address] Camargo will contact you with the cologuard results. documented in this encounter Progress Notes * Brooke Haynes APRN-CNP - 01/04/2019 11:48 AM CDT MEDICARE ANNUAL WELLNESS VISIT REVIEW OF BENEFICIARY'S MEDICAL AND SOCIAL HISTORY [...] Not on file Occupational History ??? 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 Financial resource strain: [...] file Gets together: Not on file Attends yarsani service: Not on file Active member of [...] CHF ??? Coronary Artery Disease Brother CHF Allergies Allergen Reactions ??? Advair [...] facility-administered medications for this visit. CURRENT DIET regular PHYSICAL ACTIVITY Exercise: no DEPRESSION SCREENING AND RISK FACTORS Depression risk factors identified; no PHQ-2:TOTAL POINT SCORE: 0 PHQ-9: HEALTH RISK ASSESSMENT, FUNCTIONAL ABILITY & SAFETY A Checklist for Your Medicare Wellness Annual Visit 1. During the past 4 weeks, how much bodily pain have you generally had?: (!) Moderate pain(leg, being seen by Dr. Ross. ) 2. During the past 4 weeks, was someone available to help you if you needed and wanted help? For example, if you felt very nervous, lonely or blue, got sick and had to stay in bed, or needed help just taking care of yourself?: Yes, as much as I wanted 3. During the past 4 weeks, what was the hardest physical activity you could do for at least 2 minutes?: (!) Light 4. Can you get places out of walking distance without help? For example, can you travel alone by bus, taxi, or drive your own car?: (!) No(family does this) 5. Can you shop for groceries or clothes without help?: (!) No(family) 6. Can you prepare your own meals?: Yes 7. Can you do your own housework without help?: (!) No(family) 8. Can you handle your own money without help?: (!) No(family. ) 9. Do you need help eating, bathing, dressing, or getting around your home?: (!) Yes(family helps. ) 10. During the past 4 weeks, how would you rate your health in general?: Good 11. Are you having difficulties driving your car?: Not applicable, I do not use a car 12. Do you always fasten your seat belt when you are in a car?: Yes, usually PHYSICAL FUNCTIONING 13. Are you able to stand unassisted?: (!) No(needs walker) 14. Are you able to reach for objects on a shelf?: (!) No(family) 15. Are you able to walk up and down steps?: (!) No(family) 16. Are you able to get in and out of a car?: Yes(but with difficulty) 17. Do you have throw rugs on the floor?: No 18. Do you have to walk around or step over cords or wires?: No 19. Does your home have grab bars in the bathroom?: Yes 20. Does your home have handrails on the stairs?: Yes 21. How often during the past 4 weeks, have you been bothered by any of the following problems? 21A. Fall or dizzy when standing up:: (!) Always(sees Dr. Ross) 21B. Sexual problems:: N/A 21C. Trouble eating well: : Never 21D. Teeth or dentures:: Never 21E. Problems using the telephone:: Never 21F. Tired or fatigued:: Never BEHAVIORAL AND FALL Have you fallen in the last year?: (!) Yes (document or confirm fall details are in the medical history)(many times due to underlying condition) Fall >2 x or injured from the fall?: (!) Yes(sees Dr. Ross) 23. Are you afraid of falling?: (!) Yes(sees DR. Ross) 24. Are you a smoker?: No 25. During the past 4 weeks, how many drinks of wine, beer or other alcoholic beverages did you have?: No alcohol at all 26. Do you exercise for about 20 minutes 3 or more days a week?: (!) No, I usually do not exercise this much. 27. Are there smoke alarms in your living area?: Yes 28. Are there carbon monoxide alarms in your living area?: Yes 29. In the bedroom, is the light near the bed difficult to reach?: No 30. Is the path from your bed to the bathroom free of obstacles with adequate lighting?: Yes 31. Have you lost or gained weight without trying in the last year?: No(the weight on 12-17-2018 is in error) 32. Have you been given any information to help you with the followinA. Hazards in your house that might hurt you? `: Yes 32B. Keeping track of your medications?: Yes 33. How often do you have trouble taking medicines the way you have been told to take them?: I always take them as prescribed ASSISTIVE DEVICES 35. Assistive Devices: (!) bath bar/seat;walker;raised toilet seat FUNCTIONAL ABILITY/SAFETY SCREENING Was the patient's timed Up & Go test unsteady or longer than 12 seconds?: (!) Yes(unable to perform. ) HEARING Hearing Test: (!) Failed Hearing Impairment: (!) Bilateral Patient uses hearing aid(s): (!) Yes CURRENT CARE PROVIDERS Patient Care Team: Theresa Camargo MD as PCP - General (Internal Medicine) Brooke Haynes APRN-CNP as PCP - [facility] Etienne Florez MD (Orthopedic Surgery) Enrique Gonzalez MD (Oncology) Nelson Ross MD (Neurology) Laz Valencia MD (Cardiovascular Disease) Wm Krishan Moran MD (Pulmonary Disease) Yuliya Ibarra MD (Endocrinology) Phuong Callejas DPM (Podiatry) Sy Barrientos MD (Ophthalmology) Wm Krishan Moran MD (Pulmonary Disease) Rico Gasca MD (Urology) Elle Landaverde MD (Vascular Surgery) Kirk Truong MD (Gastroenterology) Shira Love DO (General Surgery) END-OF-LIFE PLANNING ADVANCED DIRECTIVE: no CODE STATUS Full code PHYSICAL EXAM Vitals: 01/04/19 1129 BP: 112/58 Pulse: 71 Resp: 18 Temp: 97.9 ??F (36.6 ??C) Weight: 87.9 kg (193 lb 12.8 oz) Pain Assessment Pain Score: Eight Pain Loc: Leg Pain Edu?: Yes Body mass index is 32.25 kg/m??. VISUAL ACUITY SCREEN Hearing Screening Comments: Wears hearing aids. Vision Screening Comments: Had recent vision exam. Cognitive screening; no deficits noted. ASSESSMENT AND PLAN No diagnosis found. SCREENING SCHEDULE Health Maintenance Topic Date Due ??? ZOSTER VACCINE (2 of 3) 10/19/2007 ??? ANNUAL MEDICARE WELLNESS VISIT 06/14/2016 ??? HCC (Chart Reviewer Use Only) 02/06/2019 ??? DIABETES-FOOT EXAM WITH MONOFILAMENT 03/19/2019 ??? DIABETES-HGB A1C 05/08/2019 ??? MAMMOGRAM 09/15/2019 ??? DIABETES-EYE EXAM 11/24/2019 ??? COLON CA SCREENING 05/19/2021 ??? DTAP/TDAP/TD VACCINES (4 - Td) 08/29/2025 ??? PNEUMOCOCCAL VACCINE 65+ Completed ??? BONE DENSITY TESTING Completed ??? HIB VACCINE Aged Out ??? MENINGOCOCCAL VACCINE Aged Out EDUCATION, COUNSELING, AND REFERRAL BASED ON THE PREVIOUS SCREENING Above screenings were performed and referrals were made as appropriately needed. No orders of the defined types were placed in this encounter. Consider new shingles shot available at the pharmacy, series of 2 initial and repeat in 2 - [address] Camargo will contact you with the cologuard results. * Nelly Koroma - 01/04/2019 11:28 AM CDT Patient is here today for a Medicare Wellness Exam. Blood pressure 112/58, pulse 71, temperature 97.9 ??F (36.6 ??C), temperature source Oral, resp. rate 18, weight 87.9 kg (193 lb 12.8 oz), not currently . documented in this encounter Miscellaneous Notes * Addendum Note - Roberto Altamirano - 01/08/2019 9:56 AM CDTAddended by: ROBERTO ALTAMIRANO on: 01/08/2019 09:56 AM Modules accepted: Level of Service documented in this encounter Plan of Treatment Not on file documented as of this encounter Goals Goal Patient Goal Type Associated Problems Recent Progress Patient-Stated? 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 Alisa Jaramillo HEMOGLOBIN A1C < 7.0 Result Component 5.4( 12:00 AM CDT) No Alisa Jaramillo documented as of this encounter Visit Diagnoses Diagnosis Routine general medical examination at a health care facility- Primary documented in this encounter Care Teams Slitter Cut Off Operator Relationship Specialty Start [place] [address] [facility] [address] [place], [place] [phone] PCP - General Internal Medicine 03/31/18 05/30/22 Etienne Florez MD Orthopedic Surgery 12/09/14 [place] [address] [facility] [address] [place] [phone] Oncology 09/15/17 [place] [address] [facility] [address] [place] [phone] Neurology 06/26/18 [place] [address] [facility] [address] [place] [phone] Cardiovascular Disease 06/26/18 [place] [address] [address] Pulmonary Disease 06/26/18 Yuliya Ibarra MD [address] [place] [phone] Endocrinology 06/26/18 Phuong Callejas DPM [address] [place], [place] [phone] Podiatry 06/26/18 Sy Barrientos MD [address] [place] [address] [place] [address] Ophthalmology 06/26/18 Russell Moran MD [address] [place] [address] Pulmonary Disease 06/26/18 Rico Gasca MD [address] [facility] [address] [place] [address] Urology 06/26/18 Elle Landaverde MD [address] [facility] [address] [place] [address] Vascular Surgery 06/26/18 Kirk Truong MD [address] [facility] [address] [place] [address] Gastroenterology 06/26/18 [place] [address] [place] [address] General Surgery 06/26/18 documented as of this encounter
--- OUTSIDE RECORDS SUMMARY | 2024-05-26 12:40 | XMS_ITS | Encounter Summary ---
Author Organization [facility] Address [address] [place] [address] Care Team Providers Care Field Examiner Name Role Phone Etienne Florez MD Unavailable Enrique Gonzalez MD Unavailable [phone] Theresa Camargo MD Primary Care Provider [phone] Nelson Ross MD Unavailable [phone] Laz Valencia MD Unavailable Russell Moran MD Unavailable Yuliya Ibarra MD Unavailable [phone] Phuong Callejas DPM Unavailable [phone] Sy Barrientos MD Unavailable [phone] Russell Moran MD Unavailable [phone] Rico Gasca MD Unavailable Elle Landaverde MD Unavailable Kirk Truong MD Unavailable [phone] Shira Love DO Unavailable [phone] Reason for Visit * Reason Comments Pre-op Clearance Encounter Details Date Type Department Care Team (Late st Contact Info) Description 10/06/2018 2:00 PM CDT Office Visit [facility] [address] [facility] [address] [place] [address] Asha Narvaez, SENIOR MARKET INTELLIGENCE CONSULTANTPHARMACY PICKING TECH [address] [facility] [address] [place] [address] Preoperative examination (Primary Dx) Social History Tobacco Use Types [...] Sign Reading Time Taken Comments Blood Pressure 134/60 10/06/2018 2:19 PM CDT Pulse 64 10/06/2018 2:19 PM CDT Temperature 36.6 ??C (97.9 ??F) 10/06/2018 2:19 PM CD T Respiratory Rate 13 10/06/2018 2:19 PM CDT Oxygen Saturation - - Inhaled Oxygen Concentration - - Weight 88.7 kg (195 lb 9.6 oz) 10/06/2018 2:19 P M CDT Height 165.1 cm (5' 5 ) 10/06/2018 2:19 PM CDT Body Mass Index 32.55 10/06/2018 2:19 PM CDT documented in this encounter Functional [...] this encounter Patient Instructions * Patient Instructions* Ramón Allen - 10/06/2018 1:54 PM CDT Caring for Your High Blood Pressure Diet Eat a healthy diet: ??? Eat healthy foods from all of the 5 food groups which are fruits, vegetables, breads, dairy products, meat and fish. Eating healthy foods may help you feel better and have more energy. ??? To help control your blood pressure, you may need to limit the amount of salt and fat you eat. Read labels to see how much sodium (salt or sodium chloride) is in the food that you buy at the store. Avoid foods and drinks that are high in sodium (salt). These include smoked meats (such as ham and bolanos), cheese, canned and frozen foods, and butter and margarine. Read all labels carefully. Do not add salt to your food. Learn to use fresh herbs, spices, or salt substitutes to add flavor to your food. Ask your provider for any dietary restrictions that are appropriate for you. Where can I go for more information? [employer] National Center: http://www.americanheart.org 1. In the top header, click ???Conditions?? . 2. In the top header, click ???high blood pressure.?? 3. For a printable blood pressure tracker, scroll toward the bottom of the page to Related Tools, and click ???HBP Trackers.?? 7-121-PVD-USA-1 or ( ) National Heart, Lung and Blood [place]: http://www.nhlbi.nih.gov/health/infoctr/index.htm Caring for Your Diabetes Routine Testing for Diabetic Control How do you know if your treatment plan is working? We can???t tell how you are doing just by how you feel. There are 6 important tests that help you and your provider know how well you are managing your diabetes and decreasing your risk for complications. ??? Foot exam - People with diabetes have a great chance of developing foot problems. Checking yourfeet at home every day is important. Your provider will also complete a thorough exam during one ofyour regular office visits. ??? Eye exam - Diabetes can lead to retinopathy. This is a condition caused by changes in the retina, the part of the eye that senses light. If not treated retinopathy can lead to blindness. Having an eye exam at least once a year can help catch any problems early. ??? HgbA1c -This blood test is a very important indicator of blood sugar control over the last 3 months. A normal A1C result means that a healthy amount of glucose is inside the red blood cells. A high A1C result means that too much glucose is inside red blood cells. ??? Micro-Albumin - With diabetes you are at a higher risk of developing kidney disease. This test is the best way to identify early signs of kidney damage. If needed, treatment can begin to prevent a more serious problem from developing. ??? LDL - This is the ???BAD?? cholesterol. Lipids are fat like substances that can build up in the lou of your arteries. This can increase your risk of heart disease. In general reaching your target is the most effective way to protect your heart and blood vessels. ??? Blood pressure - People with diabetes are more than twice as likely to have high blood pressurethan people without diabetes. High blood pressure is a problem because, if left untreated, it can damage the large vessels leading to the heart and brain which can lead to heart attack or stroke. ??? Blood Sugar - An important part of your diabetes care is knowing your blood sugar. Your blood sugar can and should be monitored regularly, at the discretion of your doctor, in order to make the most of your diabetic care. A printable blood sugar log can be found by following the links below: 1. Go to www.diabetes.org and click on ???Living with Diabetes.?? 2. Under the [facility], click ? Blood Glucose Testing.? 3. Click ???Checking Your Blood Glucose,?? and this will give you both an online tool and a printable blood glucose log. 4. The printable blood glucose log can also be accessed here: printable blood glucose log Discuss with your provider your personalized treatment goals to help manage your diabetes. If you see providers outside of this office please make sure that the test results or exam notes are sent toour office. documented in this encounter Progress Notes * Asha Narvaez, SENIOR MARKET INTELLIGENCE CONSULTANT-PHARMACY PICKING TECH - 10/06/2018 2:26 PM CDT Perla Leon is a 77 year old female here for: Chief Complaint Patient presents with ??? Pre-op Clearance SUBJECTIVE: HPI Comments: Patient presents for pre-operative evaluation. She is to have right eye cataract surgery. She has a history of familial spastic paraplegia, asthma, afib, breast CA, DM, IBS, HTN, CATY, partial seizures, TIA, CAD, glaucoma, heart murmur, and hypothyroid. Surgery is to be done by Dr. Barrientos on August 15. Patient is feeling well with no acute concerns. Last EKG done 06/26/2018. Last CBC and BMP look good. Past Medical History: Diagnosis Date ??? Asthma [...] ??? TIA (transient ischemic attack) 2000, 08/11/2008 Current Outpatient Prescriptions on File Prior to [...] once daily. ??? MYRBETRIQ 50 MG tablet once daily ??? polyethyl glycol-propyl glycol (SYSTANE) [...] Past Surgical History: Procedure Laterality Date ??? BIOPSY BREAST ??? BREAST BIOPSY, EXCISION Left 08/25/2017 Left; EXCISION LEFT BREAST BX W/WIRE LOC IN RADIOLOGY ??? Breast Lumpectomy ??? CARDIAC CATH 08/04/2002, 09/06/2010 ??? Cholecystectomy 10/28/1997 ??? COLONOSCOPY 2011 ??? ENDOSCOPY, UPPER 12/23/2017 ESOPHAGOGASTRODUODENOSCOPY (EGD) DIAGNOSTIC WITH BIOPYS AND OR POLYPECTOMY ??? Hernia Repair 01/17/2010 ??? Hysterectomy 1986 ??? Knee Arthroscopy 05/06/2001, 09/27/2003 RT KNEE ??? PROC BIOPSY 07/07/2008 LT LEG, RT CHEEK ??? SURGICAL HISTORY OF 1974 REMOVAL OF ULCER FROM VOCAL CORD ??? SURGICAL HISTORY OF 1984 BROKEN NOSE SURGERY ??? SURGICAL HISTORY OF 09/10/2010 PELVIC PROLAPSED RECONSTRUCTION ??? SURGICAL HISTORY OF 07/20/2008 FREEZE PRECANCEROUS SPOT RT CHEEK ??? SURGICAL HISTORY OF 07/05/2008 FREEZE PRECANCERSOUS SPOTS ON RT AND LT ARM ??? THYROID NEEDLE BIOPSY Social History Social History ??? Marital status: Spouse name: N/A ??? Number of children: 3 ??? 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 Smoking status: Never Smoker ??? Smokeless tobacco: Never Used ??? Alcohol use No ??? Drug use: No ??? Sexual activity: Not on file Other Topics Concern ??? Not on file Social History Narrative Family History Problem Relation Age of Onset ??? Cancer - Breast Mother ??? Coronary Artery Disease Father CHF ??? Coronary Artery Disease Brother CHF Current Outpatient Prescriptions Medication Sig Dispense Refill ??? albuterol HFA [...] once daily. ??? MYRBETRIQ 50 MG tablet once daily ??? polyethyl glycol-propyl glycol (SYSTANE) [...] Sotalol Other Hair loss REVIEW OF SYSTEMS: Review of Systems Constitutional: Negative. HENT: Negative. Eyes: Positive for blurred vision. Respiratory: Negative. Cardiovascular: Positive for leg swelling. Lymphedema. Gastrointestinal: Positive for constipation and diarrhea. Hx of ibs Genitourinary: Positive for frequency. Overactive bladder. Musculoskeletal: Positive for myalgias. Skin: Negative. Neurological: Negative. Psychiatric/Behavioral: Negative. OBJECTIVE: General appearance: alert, well appearing, and in no distress. BP 134/60 (BP SITE: RIGHT ARM, BP POSITION: SITTING, BP CUFF SIZE: 11) Pulse 64 Temp 97.9 ??F (36.6??C) (Oral) Resp 13 Ht 1.651 m (5' 5 ) Wt 88.7 kg (195 lb 9.6 oz) BMI 32.55 kg/m2 Body mass index is 32.55 kg/(m^2). Physical Exam Vitals reviewed. General appearance - [...] Throat: pink, moist mucous membranes, tonsils not enlarged Neck - trachea midline, no thyromegaly, supple, full range of motion Lymph - no significant lymphadenopathy in the head, neck nor supraclavicular region. Lungs - unlabored, clear to auscultation, no wheezes, rales or rhonchi, symmetric air entry, good anterior forced expiration without coarseness nor wheezing. Heart - normal rate, regular rhythm, murmur present, rubs, clicks or gallops, +lymphededema (wearing support hose), peripheral pulses normal, no carotid bruits. Abdomen - round, bowel sounds present, soft, nontender, nondistended, no masses or hepatosplenomegaly Extremities - Pt using wheelchair, full range of motion, no clubbing nor cyanosis. Skin - warm, dry, no rashes in visible areas. Neuro - PERRLA, CN ll through Xll intact. Equal UE push/pulls, Equal hand process chemist. R>L ( R 3+, L 2+) lower extremity push/pulls. No nystagmus with pt's eyes following examiner's finger through fieldof vision, Negative pronator drift, Negative romberg test, Able to smoothly put dorsum of hand to opposite palm and alternate palm to dorsum increasing in speed without difficulty, bilaterally. ASSESSMENT: Encounter Diagnosis Name Primary? Preoperative examination Yes PLAN: May proceed with surgery using general anesthesia. Mild risk are present due to co-morbidities YELITZA Garcia CP: Dr. Ofe Fitzgerald PCP: Dr. Theresa Camargo Further recommendations pending the above results and patient's clinical course. Follow-up visit as needed. The patient indicates understanding of these issues and agrees with the plan. * Ramón Allen - 10/06/2018 2:23 PM CDT Patient is here for pre op clearance. BP 134/60 (BP SITE: RIGHT ARM, BP POSITION: SITTING, BP CUFF SIZE: 11) Pulse 64 Temp 97.9 ??F (36.6??C) (Oral) Resp 13 Ht 1.651 m (5' 5 ) Wt 88.7 kg (195 lb 9.6 oz) BMI 32.55 kg/m2 Screenings Future Falls: Depression: PHQ-2: PHQ-9: documented in this encounter Plan of Treatment Not on file documented as of this encounter Goals Goal Patient Goal Type Associated Problems Recent Progress Patient-Stated? 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 8:09 AM DATA ENTRY SPECIALIST) No Alisa Jaramillo HEMOGLOBIN A1C < 7.0 Result Component 5.4( 12:00 AM CDT) No Alisa Jaramillo documented as of this encounter Visit Diagnoses Diagnosis Preoperative examination- Primary Preoperative examination, unspecified documented in this encounter Care Teams Field Examiner Relationship Specialty Start [place] [address] [facility] [address] [place], [place] [id number] PCP - General Internal Medicine 03/31/18 05/30/22 Etienne Florez MD Orthopedic Surgery 12/09/14 [place] [address] [facility] [address] [place] [phone] Oncology 09/15/17 [place] [address] [facility] [address] [place] [phone] Neurology 06/26/18 [place] [address] [facility] [address] [place] [id number] Cardiovascular Disease 06/26/18 [place] [address] [address] Pulmonary Disease 06/26/18 Yuliya Ibarra MD [address] [place] [phone] Endocrinology 06/26/18 Phuong Callejas DPM [address] [place], [place] [id number] Podiatry 06/26/18 Sy Barrientos MD [address] [place] [address] [place] [address] Ophthalmology 06/26/18 [place] [address] [address] Pulmonary Disease 06/26/18 Rico Gasca MD [address] [address] [place] [address] Urology 06/26/18 Elle Landaverde MD [address] [facility] [facility] [facility] [address] [place] [address] Vascular Surgery 06/26/18 Kirk Truong MD [address] [place] [address] Gastroenterology 06/26/18 [place] [address] [place] [address] General Surgery 06/26/18 documented as of this encounter
--- OUTSIDE RECORDS SUMMARY | 2024-05-26 12:40 | XMS_ITS | Encounter Summary ---
Author Organization [facility] Address [address] [place] [address] Care Team Providers Care Rent Collector Name Role Phone Etienne Florez MD Unavailable Enrique Gonzalez MD Unavailable [phone] Theresa Camargo MD Primary Care Provider Nelson Ross MD Unavailable Laz Valencia MD Unavailable Russell Moran MD Unavailable Yuliya Ibarra MD Unavailable [phone] Phuong Callejas DPM Unavailable Sy Barrientos MD Unavailable [phone] Russell Moran MD Unavailable Rico Gasca MD Unavailable Elle Landaverde MD Unavailable Kirk Truong MD Unavailable Shira Love DO Unavailable [phone] Encounter Details Date Type Department Care Team (Latest Contact Info) Description 12/17/2018 12:33 PM CDT - 12/17/2018 11:59 PM CDT Hospital Encounter [facility] Health Imaging Services - Radiology [address] [place] [address] [place] [address] [address] Discharge Disposition: Home or Self Care Social [...] TAKE 1 TABLET AT BEDTIME 90 tablet 10/27/2018 01/06/2019 Cyanocobalamin 1000 MCG Take by mouth once [...] < 140/90 Blood Pressure 127/52(2022 8:09 AM MALT LOADER) No Alisa Jaramillo HEMOGLOBIN A1C < 7.0 Result Component 5.4( 12:00 AM CDT) No Alisa Jaramillo documented as of this encounter Procedures Procedure Name Priority Date/Time Associated Diagnosis Comments XR LUMBAR SPINE 2 OR 3VW Routine 12/17/2018 12:51 PM CDT Spinal stenosis of lumbar region without neurogenic claudication XR CERVICAL SPINE 2 OR 3VW Routine 12/17/2018 12:51 PM CDT Spondylosis of cervical region without myelopathy or radiculopathy documented in this encounter Results * XR LUMBAR SPINE 2 OR 3VW [...] noted. Procedure Note Dianna Simmons MD - 08/01/2019 Cervical spine 2 views PA and lateral [...] PM Nelson Ross MD DIAGNOSTIC IMAGING ORDERABLES documented in this encounter Visit Diagnoses Diagnosis Spondylosis of cervical region without myelopathy or radiculopathy Cervical spondylosis without myelopathy Spinal stenosis of lumbar region without neurogenic claudication Spinal stenosis, lumbar region, without neurogenic claudication documented in this encounter Care Teams Rent Collector Relationship Specialty Start [place] [address] [facility] [address] [place] [address] PCP - General Internal Medicine 03/31/18 05/30/22 Etienne Florez MD Orthopedic Surgery 12/09/14 [place] [address] [facility] [address] [place] [address] Oncology 09/15/17 [place] [address] [facility] [address] [place] [phone] Neurology 06/26/18 [place] [address] [facility] [address] [place] [address] Cardiovascular Disease 06/26/18 [place] [address] [id number] Pulmonary Disease 06/26/18 Yuliya Ibarra MD [address] [place] [address] Endocrinology 06/26/18 Phuong Callejas DPM [address] [place], [place] [phone] Podiatry 06/26/18 Sy Barrientos MD [address] [place] [address] [place] [address] Ophthalmology 06/26/18 [place] [address] [address] Pulmonary Disease 06/26/18 Rico Gasca MD [address] [facility] [address] [place] [address] Urology 06/26/18 Elle Landaverde MD [address] [facility] [address] [place] [address] Vascular Surgery 06/26/18 Kirk Truong MD [address] [place] [address] Gastroenterology 06/26/18 [place] [address] [place] [address] General Surgery 06/26/18 documented as of this encounter
--- OUTSIDE RECORDS SUMMARY | 2024-05-26 12:40 | XMS_ITS | Encounter Summary ---
Author Organization [facility] Address [address] [place] [address] Care Team Providers Care Assistant Public Defender Name Role Phone Etienne Florez MD Unavailable Enrique Gonzalez MD Unavailable Theresa Camargo MD Primary Care Provider Nelson Ross MD Unavailable Laz Valencia MD Unavailable Russell Moran MD Unavailable [phone] Yuliya Ibarra MD Unavailable [phone] Phuong Callejas DPM Unavailable [phone] Sy Barrientos MD Unavailable [phone] Russell Moran MD Unavailable Rico Gasca MD Unavailable [phone] Elle Landaverde MD Unavailable Kirk Truong MD Unavailable Shira Love DO Unavailable [phone] Reason for Visit * Reason Comments Follow-up Encounter Details Date Type Department Care Team (Late st Contact Info) Description 08/18/2018 2:00 PM CDT Office Visit [facility] Health Neurosciences [address] [facility] [address] [place] [address] [place] [address] [facility] [address] [place] [address] HSP (hereditary spastic paraplegia) (HCC) (Primary Dx); History of stroke; MCI (mild cognitive impairment) Social History Tobacco Use Types Packs/Day Years [...] Sign Reading Time Taken Comments Blood Pressure 118/56 08/18/2018 2:14 PM CDT Pulse 64 08/18/2018 2:14 PM CDT Temperature - - Respiratory Rate 14 08/18/2018 2:14 PM CDT Oxygen Saturation 94% 08/18/2018 2:14 PM CDT Inhaled Oxygen Concentration - - Weight 87.1 kg (192 lb) 08/18/2018 2:14 PM CDT Height 165.1 cm (5' 5 ) 08/18/2018 2:14 PM CDT Body Mass Index 31.95 08/18/2018 2:14 PM CDT documented in this encounter [...] Progress Notes * Nelson Ross MD - 08/18/2018 2:41 PM CDT CC: HSP IH: No new stroke like events. Walks with a walker. Has trouble controlling bladder if on diuretic.If not on diuretic can control. Feels she is moving slower. Slower to respond to a question. Sees Dr Gasca. Early on bladder meds caused confusion. Now on Myrbetriq. DM is OK. Last A1c 6.3. Has ongoing issues with IBS. Alternates between diarrhea and constipation. Sees Dr Truong. Ongoing lymphedema. Recent pneumonia with CT showing ground glass right middle lobe. Aricept gave diarrhea Outpatient Prescriptions Marked as Taking for the 08/18/18 encounter (Office Visit) with Nelson Ross MD [...] for constipation and diarrhea. Genitourinary: Positive for urgency. Musculoskeletal: Positive for falls. Negative for back pain. Neurological: Positive for dizziness. Exam: BP 118/56 Pulse 64 Resp 14 Ht 1.651 m (5' 5 ) Wt 87.1 kg (192 lb) SpO2 94% BMI 31.95 kg/m2 Alert Gait - needs support and shuffles feet Distal vib loss Reflexes brisk FTN OK EOMS OK Chest clear without E to A changes Power Hips weak in 4 range Bilateral bruits - radiated AV sound VIEJAS Echo reviewed and increased AV velocity from hyperdynamic ventrical Dr Gasca's note reviewed ASSESSMENT: HSP MCI IBS Recent pneumonia History of stroke Edema PLAN: Same meds 6 month OV Over 25 minutes were spent with the patient face to face. Over fifty percent of this time was spentcounseling and coordination of care. All questions were answered to the patients satisfaction. Herewith a daughter and . We discussed her cardiac symptoms and findings on the echo. We discussed her bladder function. We discussed her overall prognosis. We discussed her memory loss. We discussed her edema. Treatment as stated above documented in this encounter Plan of Treatment Not on file documented as of this encounter Goals Goal Patient Goal Type Associated Problems Recent Progress Patient-Stated? 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 spastic paraplegia History of stroke Transient ischemic attack (TIA), and cerebral infarction without residual deficits MCI (mild cognitive impairment) Mild cognitive impairment, so stated documented in this encounter Care Teams Assistant Public Defender Relationship Specialty Start [place] [address] [facility] [address] [place] [address] PCP - General Internal Medicine 03/31/18 05/30/22 Etienne Florez MD Orthopedic Surgery 12/09/14 [place] [address] [facility] [address] [place] [address] Oncology 09/15/17 [place] [address] [facility] [address] [place] [address] Neurology 06/26/18 [place] [address] [facility] [address] [place] [address] Cardiovascular Disease 06/26/18 [place] [address] [address] Pulmonary Disease 06/26/18 Yuliya Ibarra MD [address] [place] [address] Endocrinology 06/26/18 Phuong Callejas DPM [address] [place], [place] [phone] Podiatry 06/26/18 Sy Barrientos MD [address] [place] [address] [place] [address] Ophthalmology 06/26/18 [place] [address] [address] Pulmonary Disease 06/26/18 Rico Gasca MD [address] [place] [address] Urology 06/26/18 Elle Landaverde MD [address] [place] [address] Vascular Surgery 06/26/18 Kirk Truong MD [address] [place] [address] Gastroenterology 06/26/18 [place] [address] [place] [id number] General Surgery 06/26/18 documented as of this encounter
--- OUTSIDE RECORDS SUMMARY | 2024-05-26 12:40 | XMS_ITS | Encounter Summary ---
Author Organization [facility] Address [address] [place] [address] Care Team Providers Care Manual Machinist Name Role Phone Etienne Florez MD Unavailable Enrique Gonzalez MD Unavailable [phone] Theresa Camargo MD Primary Care Provider Nelson Ross MD Unavailable [phone] Laz Valencia MD Unavailable Russell Moran MD Unavailable [phone] Yuliya Ibarra MD Unavailable Phuong Callejas DPM Unavailable [phone] Sy Barrientos MD Unavailable Russell Moran MD Unavailable Rico Gasca MD Unavailable Elle Landaverde MD Unavailable [phone] Kirk Truong MD Unavailable [phone] Shira Love DO Unavailable [phone] Reason for Visit * Reason Onset Date Comments Results 08/06/2018 Encounter Details Date Type Department Care Team (Late st Contact Info) Description 08/06/2018 Telephone [facility] [address] [facility] [address] [place] [address] Brooke Haynes APRN-CNP [address] [facility] [address] [place] [address] Results Social History Tobacco Use [...] Telephone Encounter - Brooke Haynes APRN-CNP - 08/06/2018 12:39 PM CDT Call to pt and my chart message sent; there is persistent opacity in the right middle to lower lobenear the heart border, ordering ct scan, expect a call to get this set up but you do not hear from them by tomorrow at noon, call [phone]. Left message per shae on phone and sent my chart message. documented in this encounter Plan of Treatment Not on file documented as of this encounter Goals Goal Patient Goal Type Associated Problems Recent Progress Patient-Stated? 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 8:09 AM ART COORDINATOR) No VilmasarthakAlisa marks HEMOGLOBIN A1C < 7.0 Result Component 5.4( 12:00 AM CDT) No AllisonflorentinoAlisa marks documented as of this encounter Visit Diagnoses Not on filedocumented in this encounter Care Teams Manual Machinist Relationship Specialty [place] [address] [facility] [address] [place], [place] [id number] PCP - General Internal Medicine 03/31/18 05/30/22 Etienne Florez MD Orthopedic Surgery 12/09/14 [place] [address] [facility] [address] [place] [address] Oncology 09/15/17 [place] [address] [facility] [address] [place] [address] Neurology 06/26/18 [place] [address] [facility] [address] [place] [address] Cardiovascular Disease 06/26/[address] [place] [address] [facility] [address] [place] [id number] Pulmonary Disease 06/26/18 Yuliya Ibarra MD [address] [facility] [address] [place] [phone] Endocrinology 06/26/18 Phuong Callejas DPM [address] [place] [address] Podiatry 06/26/18 Sy Barrientos MD [address] [place] [address] [place] [address] Ophthalmology 06/26/18 [place] [address] [id number] Pulmonary Disease 06/26/18 Rico Gasca MD [address] [facility] [address] [place] [address] Urology 06/26/18 Elle Landaverde MD [address] [facility] [address] [place] [address] Vascular Surgery 06/26/18 Kirk Truong MD [address] [facility] [address] [place] [address] Gastroenterology 06/26/18 [place] [address] [place] [address] [place] [id number] General Surgery 06/26/18 documented as of this encounter
--- OUTSIDE RECORDS SUMMARY | 2024-05-26 12:40 | XMS_ITS | Encounter Summary ---
Author Organization [facility] Address [address] [place] [address] Care Team Providers Care Company Secretary Name Role Phone Etienne Florez MD Unavailable [phone] Enrique Gonzalez MD Unavailable [phone] Theresa Camargo MD Primary Care Provider Nelson Ross MD Unavailable Laz Valencia MD Unavailable Russell Moran MD Unavailable Yuliya Ibarra MD Unavailable Phuong Callejas DPM Unavailable Sy Barrientos MD Unavailable [phone] Russell Moran MD Unavailable Rico Gasca MD Unavailable [phone] Elle Landaverde MD Unavailable Kirk Truong MD Unavailable Shira Love DO Unavailable [phone] Reason for Visit * Reason Onset Date Comments MEDICATION REFILL 10/20/2018 Encounter Details Date Type Department Care Team (Late st Contact Info) Description 10/20/2018 Refill [facility] - Family Medicine [address] [facility] [address] [place] [address] [place] [address] [facility] [address] [place] [address] MEDICATION REFILL Social History Tobacco [...] * Telephone Encounter - Brandi Donis - 10/20/2018 9:46 AM CDT Perla Leon is in need of Her Requested Prescriptions Pending Prescriptions Disp Refills ??? rosuvastatin (CRESTOR) 10 MG tablet 90 tablet 3 Sig: Take 1 tablet by mouth at bedtime Pt. Switching Pharmacy Person calling for the refill: Pt. Last office visit 10/06/18 Asha TAFOYA Next Appointment scheduled: 11/06/2018 Last Refill for this medication 10/27/17 Does patient have any new allergies since last office visit? No Was the pharmacy verified? Yes If this is a controlled substance was the Last 4 of SSN verified? NOT APPLICABLE (If unable to verify last 4 of SSN transfer to the clinic for further review) documented in this encounter Plan of Treatment Not on file documented as of this encounter Goals Goal Patient Goal Type Associated Problems Recent Progress Patient-Stated? 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 8:09 AM CARVING MACHINE OPERATOR) No Alisa Jaramillo HEMOGLOBIN A1C < 7.0 Result Component 5.4( 12:00 AM CDT) No Alisa Jaramillo documented as of this encounter Visit Diagnoses Not on filedocumented in this encounter Care Teams Company Secretary Relationship Specialty [place] [address] [facility] [address] [place] [address] PCP - General Internal Medicine 03/31/18 05/30/22 Etienne Florez MD Orthopedic Surgery 12/09/14 [place] [address] [facility] [address] [place] [address] Oncology 09/15/17 [place] [address] [facility] [address] [place] [address] Neurology 06/26/18 [place] [address] [facility] [address] [place] [address] Cardiovascular Disease 06/26/18 [place] [address] [address] Pulmonary Disease 06/26/18 Yuliya Ibarra MD [address] [place] [address] Endocrinology 06/26/18 Phuong Callejas DPM [address] [place], [place] [id number] Podiatry 06/26/18 Sy Barrientos MD [address] [place] [address] Ophthalmology 06/26/18 [place] [address] [id number] Pulmonary Disease 06/26/18 Rico Gasca MD [address] [facility] [address] [place] [address] Urology 06/26/18 Elle Landaverde MD [address] [facility] [address] [place] [address] Vascular Surgery 06/26/18 Kirk Truong MD [address] [facility] [address] [place] [address] Gastroenterology 06/26/18 [place] [address] [address] [facility] [address] [place] [address] General Surgery 06/26/18 documented as of this encounter
--- OUTSIDE RECORDS SUMMARY | 2024-05-26 12:40 | XMS_ITS | Encounter Summary ---
Author Organization [facility] Address [address] [facility] [place] [address] Care Team Providers Care Content Management Consultant Name Role Phone Etienne Florez MD Unavailable Enrique Gonzalez MD Unavailable [phone] Theresa Camargo MD Primary Care Provider [phone] Nelson Ross MD Unavailable Laz Valencia MD Unavailable Russell Moran MD Unavailable Yuliya Ibarra MD Unavailable [phone] Phuong Callejas DPM Unavailable Sy Barrientos MD Unavailable Russell Moran MD Unavailable Rico Gasca MD Unavailable Elle Landaverde MD Unavailable Kirk Truong MD Unavailable Shira Love DO Unavailable [phone] Reason for Visit * Reason Comments Refill Request Encounter Details Date Type Department Care Team (Late st Contact Info) Description 01/06/2019 Refill [facility] - Family Medicine [address] [facility] [address] [place] [address] [place] [address] [facility] [address] [place] [address] Refill Request Social History Tobacco [...] < 140/90 Blood Pressure 127/52(2022 8:09 AM STUDENT LIFE ADVISOR) No Alisa Jaramillo HEMOGLOBIN A1C < 7.0 Result Component 5.4( 12:00 AM CDT) No Alisa Jaramillo documented as of this encounter Visit Diagnoses Not on filedocumented in this encounter Care Teams Content Management Consultant Relationship Specialty Start [place] [address] [facility] [address] [place] [address] PCP - General Internal Medicine 03/31/18 05/30/22 Etienne Florez MD Orthopedic Surgery 12/09/14 [place] [address] [facility] [address] [place] [address] Oncology 09/15/17 [place] [address] [facility] [address] [place] [address] Neurology 06/26/18 Laz [place] [id number] [place] [address] [address] [place] [address] Cardiovascular Disease 06/26/18 Russell Moran MD [address] [place] [address] Pulmonary Disease 06/26/18 Yuliya Ibarra MD [address] [facility] [address] [place] [address] Endocrinology 06/26/18 Phuong Callejas DPM [address] [place], [place] [phone] Podiatry 06/26/18 Sy Barrientos MD [address] [place] [address] [place] [address] Ophthalmology 06/26/18 Russell [place] [address] [place] [address] Pulmonary Disease 06/26/18 Rico Gasca MD [address] [facility] [address] [place] [address] Urology 06/26/18 Elle Landaverde MD [address] [facility] [address] [place] [address] Vascular Surgery 06/26/18 Kirk Truong MD [address] [facility] [address] [place] [address] Gastroenterology 06/26/18 [place] [address] [place] [address] General Surgery 06/26/18 documented as of this encounter
--- OUTSIDE RECORDS SUMMARY | 2024-05-26 12:40 | XMS_ITS | Encounter Summary ---
Author Organization [facility] Address [address] [facility] [place] [address] Care Team Providers Care Body Maker Name Role Phone Etienne Florez MD Unavailable Enrique Gonzalez MD Unavailable [phone] Theresa Camargo MD Primary Care Provider Nelson Ross MD Unavailable [phone] Laz Valencia MD Unavailable Russell Moran MD Unavailable [phone] Yuliya Ibarra MD Unavailable Phuong Callejas DPM Unavailable [phone] Sy Barrientos MD Unavailable Russell Moran MD Unavailable [phone] Rico Gasca MD Unavailable Elle Landaverde MD Unavailable Kirk Truong MD Unavailable [phone] Shira Love DO Unavailable [phone] Reason for Referral * Procedure (Routine) - Closed Specialty Diagnoses / Procedures Referred By Alejandrina t Referred To Contact Cardiology Diagnoses Type 2 diabetes mellitus without complication, with long-term current use of insulin (HCC) Essential hypertension Cataract of right eye, unspecified cataract type Procedures EKG 12-[place] [address] [employer] [address] [place] [address] Referral ID Status Reason Start Date Expiration Date Visits Re quested Visits Authorized [id number] Closed 06/26/2018 12/23/2018 1 1 ITY ASSURANCE NURSE Reason for Visit * Reason Comments Establish Care she is ok but is hav ing a issue with her eyes Encounter Details Date Type Department Care Team (Late st Contact Info) Description 06/26/2018 10:00 AM QUALITY ASSURANCE NURSE Office Visit [facility] Family Medicine [address] [facility] [address] [place] [address] [place] [address] [facility] [address] [place] [address] Type 2 diabetes mellitus without complication, with long-term current use of insulin (HCC) (Primary Dx); Essential hypertension; History of TIA (transient ischemic attack); Mixed hyperlipidemia; Chronic atrial fibrillation (HCC); HSP (hereditary spastic paraplegia) (HCC); Malignant neoplasm of upper-outer quadrant of left breast in female, estrogen receptor positive (HCC); Lymphatic edema; Cataract of right eye, unspecified cataract type; Gastroesophageal reflux disease without esophagitis Social History Tobacco Use Types Packs/Day Years [...] Sign Reading Time Taken Comments Blood Pressure 118/58 06/26/2018 2:17 PM QUALITY ASSURANCE NURSE Pulse 52 06/26/2018 2:17 PM QUALITY ASSURANCE NURSE Temperature 36.7 ??C (98 ??F) 06/26/2018 2:17 PM QUALITY ASSURANCE NURSE Respiratory Rate 14 06/26/2018 2:17 PM QUALITY ASSURANCE NURSE Oxygen Saturation 93% 06/26/2018 2:17 PM QUALITY ASSURANCE NURSE Inhaled Oxygen Concentration - - Weight 90.7 kg (200 lb) 06/26/2018 2:17 PM QUALITY ASSURANCE NURSE Height 165.1 cm (5' 5 ) 06/26/2018 2:17 PM QUALITY ASSURANCE NURSE Body Mass Index 33.28 06/26/2018 2:17 PM QUALITY ASSURANCE NURSE documented in this encounter Functional Status Functional [...] as of this encounter Progress Notes * Shayy Abraham - 06/26/2018 2:26 PM CST BP 118/58 (BP SITE: RIGHT ARM, BP POSITION: SITTING, BP CUFF SIZE: 11) Pulse 52 Temp 98 ??F (36.7 ??C) (Oral) Resp 14 Ht 1.651 m (5' 5 ) Wt 90.7 kg (200 lb) SpO2 93% BMI 33.28 kg/m2 CrCl cannot be calculated (Patient's most recent sCr result is older than the maximum 15 days allowed.). Body mass index is 33.28 kg/(m^2). Patient Active Problem List Diagnosis Date Noted ??? Primary hypothyroidism 05/06/2018 Priority: Not Prioritized ??? Calcification of aorta 02/04/2018 Priority: Not Prioritized CT Abd/Pelv 12/17/17 CXR 08/25/17 ??? Melena 12/12/2017 Priority: Not Prioritized ??? Iron deficiency anemia due to chronic blood loss 12/12/2017 Priority: Not Prioritized ??? Chronic idiopathic constipation 12/12/2017 Priority: Not Prioritized ??? Osteopenia of multiple sites 10/29/2017 Priority: Not Prioritized ??? Mixed hyperlipidemia 10/22/2017 Priority: Not Prioritized ??? History of TIA (transient ischemic attack) 10/22/2017 Priority: Not Prioritized ??? 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 Asthma 01/07/2011 ??? HTN (hypertension) 01/07/2011 ??? Sleep apnea 01/07/2011 ??? Type 2 diabetes mellitus without complication 01/07/2011 ITY ASSURANCE NURSE * Theresa Camargo MD - 06/26/2018 11:56 AM CST SUBJECTIVE: Perla Leon is a 77 y.o. female with Chief Complaint Patient presents with ??? Establish Care she is ok but is having a issue with her eyes Past Medical History: Diagnosis Date ??? Asthma [...] Pneumonia 1989, 08/2005, 07/2010 ??? Shingles 2002, 2007 ??? Small vessel disease, cerebrovascular ??? TIA (transient ischemic attack) 2000, 08/11/2008 Social History Social History ??? Marital status: Spouse name: N/A ??? Number of children: 3 ??? Years of education: N/A Occupational History ??? 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 Smoking [...] Disease Brother CHF Current Outpatient Prescriptions Medication ??? albuterol HFA (PROAIR HFA) 108 [...] ??? levothyroxine (SYNTHROID) 25 MCG tablet ??? lubiprostone (AMITIZA) 24 MCG capsule ??? lubiprostone (AMITIZA) 24 MCG capsule ??? menthol-zinc oxide (CALMOSEPTINE) 0.44-20.6 % ointment ??? metOLazone (ZAROXOLYN) 2.5 MG tablet ??? multivitamin with iron (ONE A DAY WITH IRON) tablet ??? MYRBETRIQ 50 MG tablet ??? polyethyl glycol-propyl glycol (SYSTANE) 0.4-0.3 % ophth solution ??? polyethylene glycol 3350 (MIRALAX) packet ??? potassium chloride (KLOR-CON 10) 10 MEQ tablet ??? psyllium (METAMUCIL) 58.6 % powder ??? rosuvastatin (CRESTOR) 10 MG tablet ??? sitaGLIPtin (JANUVIA) 50 MG tablet ??? verapamil SR 24hr (VERELAN) 240 MG capsule No current facility-administered medications for this visit. HPI: here to establish care. Generally healthy. Appetite ok. History of spastic paraplegia- family history. (mother to son transmission). since she was in her 40's and has had to use walker. Gets around with walker. Gets dressed for herself. Occasionally cooks. Has a lot of support from family. Uses wipes to clean. Recently found to have breast cancer on mammogram. 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 Wheelchair. Walker at home. Sleep: she sleeps in a lift chair. Can't lay flat Diet:fair Caffeine:rare Smoking: no Alcohol: No HM: Colon: up to date Pelvic/psa: no Bone density: up to date Mammogram: Up to date. Found to have breast cancer Other routine test/xray:none recently No chest pain. No abdominal pain. No nvd. No fever. Bowel/bladder function ok. PMHX, fam hx, and social Hx obtained and reviewed today. Meds/allergies reviewed today. Other specialists/doctors:multiple. Needs/issues/brief history: change doctors today. Review of Systems: per HPI OBJECTIVE: Wt Readings from Last 3 Encounters: 06/26/18 90.7 kg (200 lb) 04/28/18 89.8 kg (198 lb) 03/31/18 87.1 kg (192 lb) Temp Readings from Last 3 Encounters: 06/26/18 98 ??F (36.7 ??C) (Oral) 04/28/18 98.2 ??F (36.8 ??C) (Temporal) 01/14/18 98.7 ??F (37.1 ??C) (Temporal) BP Readings from Last 3 Encounters: 06/26/18 118/58 04/28/18 115/64 02/16/18 132/60 Pulse Readings from Last 3 Encounters: 06/26/18 52 04/28/18 72 02/16/18 76 General: alert, cooperative, no distress, oriented to person, place, and time, well appearing. Appears stated age. In wheelchair. ENT: ENT exam normal, no neck nodes [...] sounds Extremities: no clubbing, cyanosis or edema Neuro: negative findings: alert, oriented x3 speech normal in context and clarity No sensory at feet. Recent Labs Component Name 02/13/18 1427 01/14/18 1119 10/22/17 1157 09/08/17 0807 08/26/17 0413 06/12/17 0823 12/28/16 1814 SODIUM - 139 - 142 140 - 141 - 145 POTASSIUM 4.0 3.2* 4.4 3.4* 3.1* - 3.5 - 3.9 CHLORIDE - 101 - 109* 104 - 102 - 111* CO2 - - - BUN - 14 - CREATININE - 0.95 - 0.84 0.89 - 0.92 - 0.97 GLUCOSE - 178* - 136* 167* - 90 - 132* CALCIUM - 9.9 - 9.7 9.3 - 10.4 - 9.7 ALBUMIN - - - - - - 4.2 - 3.6 ALKPHOS - - - - - - 90 - 127* ALT - - - - - - AST - - - - - - TBIL - - - - - - 0.4 - 0.2 TPROT - - - - - - 6.6 - 6.6 EGFR - 57 - >60 >60 - 60 - 56 - = values in this interval not displayed. Recent Labs Component Name 12/09/17 1545 WBC 7.5 RBC 4.75 HGB 11.0* HCT 36.4 MCV 77* MCH 23.2* MCHC 30.2* PLTCOUNT 326 Recent Labs Component Name 06/12/17 0823 12/30/16 0430 CHOL 113 89 TRIG 148 114 HDL 35* 34* LDLCALC 55 32 Recent Labs Component Name 08/26/17 0413 05/02/17 12/29/16 0121 HGBA1C 7.0* 7.1 6.8* Recent Labs Component Name 05/02/17 12/30/16 0430 TSH 5.24 3.55 No results for input(s): [id number] in the last 82103 hours. HEALTH MAINTENANCE: Health Maintenance Topic Date Due ??? DIABETES-EYE EXAM 06/13/2016 ??? ANNUAL MEDICARE WELLNESS VISIT 06/14/2016 ??? DIABETES-HGB A1C 02/25/2018 ??? HCC (Chart Reviewer Use Only) 08/04/2018 ??? MAMMOGRAM 08/25/2018 ??? DIABETES-FOOT EXAM WITH MONOFILAMENT 03/19/2019 ??? COLON CA SCREENING 05/19/2021 ??? DTAP/TDAP/TD VACCINES (4 - Td) 08/29/2025 ??? PNEUMOCOCCAL VACCINE Completed ??? INFLUENZA VACCINE Completed ??? HIB VACCINE Aged Out ??? MENINGOCOCCAL VACCINE Aged Out ??? BONE DENSITY TESTING Completed ASSESSMENT: ICD-10-CM 1. Type 2 diabetes mellitus without complication, with long-term current use of insulin E11.9 HM RISK ADJUSTED VISIT Z79.4 LIPID PROFILE EKG 12-LEAD MT ELECTROCARDIOGRAM, COMPLETE 2. Essential hypertension I10 HM RISK ADJUSTED VISIT EKG 12-LEAD MT ELECTROCARDIOGRAM, COMPLETE 3. History of TIA (transient ischemic attack) Z86.73 HM RISK ADJUSTED VISIT 4. Mixed hyperlipidemia E78.2 HM RISK ADJUSTED VISIT 5. Chronic atrial fibrillation I48.2 HM RISK ADJUSTED VISIT 6. HSP (hereditary spastic paraplegia) G11.4 HM RISK ADJUSTED VISIT 7. Malignant neoplasm of upper-outer quadrant of left breast in female, estrogen receptor positive C50.412 HM RISK ADJUSTED VISIT Z17.0 8. Lymphatic edema I89.0 HM RISK ADJUSTED VISIT 9. Cataract of right eye, unspecified cataract type H26.9 EKG 12-LEAD MT ELECTROCARDIOGRAM, COMPLETE 10. Gastroesophageal reflux disease without esophagitis K21.9 PLAN: Orders Placed This Encounter ??? LIPID PROFILE ??? EKG 12-LEAD ??? MT ELECTROCARDIOGRAM, COMPLETE ??? esomeprazole (NEXIUM) 40 MG capsule Sig: Take 1 capsule by mouth once daily Dispense: 90 capsule Refill: 3 She gets the bulk of her lab with endocrine doctor and I am able to see her labs from April. Shehad cmp, a1c, tsh She is scheduled to have ekg. They live in [facility]. She is due for cataract surgery in July. ekg done today and no acute changes. She has had recent blood work and I was able to see that through Care everywhere. She should be okay to have cataract surgery done. She is to have local anesthesia. ekg is ok and SHE MAY PROCEED WITH CATARACT SURGERY. ITY ASSURANCE NURSE documented in this encounter Plan of Treatment Not on file documented as of this encounter Goals Goal Patient Goal Type Associated Problems Recent Progress Patient-Stated? 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 8:09 AM QUALITY ASSURANCE NURSE) No Alisa Jaramillo HEMOGLOBIN A1C < 7.0 Result Component 5.4( 12:00 AM CDT) No Alisa Jaramillo documented as of this encounter Procedures Procedure Name Priority Date/Time Associated Diagnosis Comments EKG 12-LEAD Routine 06/26/2018 Type 2 diabetes mellitus without complication, with long-term current use of insulin (HCC) Essential hypertension Cataract of right eye, unspecified cataract type documented in this encounter Results * EKG 12-LEAD (06/26/2018) Theresa Camargo MD ECG ORDERABLES [facility] RESULT SCAN documented in this encounter Visit Diagnoses Diagnosis Type 2 diabetes mellitus without complication, with long-term current use of insulin (HCC)- Primary Essential hypertension History of TIA (transient ischemic attack) Transient ischemic attack (TIA), and cerebral infarction without residual deficits Mixed hyperlipidemia Chronic atrial fibrillation (HCC) Atrial fibrillation HSP (hereditary spastic paraplegia) (HCC) Hereditary spastic 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 [address] [facility] [address] [place] [address] Oncology 09/15/17 [place] [address] [facility] [address] [facility] [address] [place] [address] Neurology 06/26/18 [place] [address] [facility] [address] [place] [address] Cardiovascular Disease 06/26/18 Russell Moran MD [address] [place] [address] Pulmonary Disease 06/26/18 Yuliya Ibarra MD [address] [facility] [address] [place] [phone] Endocrinology 06/26/18 Phuong Callejas DPM [address] [place], [place] [id number] Podiatry 06/26/18 Sy Barrientos MD [address] [place] [address] [place] [address] Ophthalmology 06/26/18 Russell Moran MD [address] [place] [address] Pulmonary Disease 06/26/18 Rico Gasca MD [address] [facility] [address] [place] [address] Urology 06/26/18 Elle Landaverde MD [address] [address] Vascular Surgery 06/26/18 Kirk Truong MD [address] [address] Gastroenterology 06/26/18 [place] [address] [address] [place] [address] General Surgery 06/26/18 documented as of this encounter
--- OUTSIDE RECORDS SUMMARY | 2024-05-26 12:40 | XMS_ITS | Encounter Summary ---
Author Organization [facility] Address [address] [address] Care Team Providers Care Trailer Mechanic Name Role Phone Etienne Florez MD Unavailable Enrique Gonzalez MD Unavailable [phone] Theresa Camargo MD Primary Care Provider Nelson Ross MD Unavailable Laz Valencia MD Unavailable Russell Moran MD Unavailable [phone] Yuliya Ibarra MD Unavailable [phone] Phuong Callejas DPM Unavailable Sy Barrientos MD Unavailable [phone] Russell Moran MD Unavailable [phone] Rico Gasca MD Unavailable Elle Landaverde MD Unavailable Kirk Truong MD Unavailable Shira Love DO Unavailable [phone] Reason for Visit * Reason Onset Date Comments MEDICATION REFILL 07/16/2018 Encounter Details Date Type Department Care Team (Late st Contact Info) Description 07/16/2018 Refill [facility] Health Neurosciences [address] [facility] [address] [place] [address] [place] [address] [facility] [address] [place] [address] MEDICATION REFILL Social History Tobacco [...] Telephone Encounter - Laisha Swift MA - 07/16/2018 12:53 PM CST Perla Leon Allergies Allergen Reactions ??? Advair Diskus YEAS INFECTION ??? Aricept [Donepezil] Other I dont remember ??? Diltiazem Swelling ??? Metformin Diarrhea ??? Fluticasone Diarrhea ??? Piper Longum ??? Salmeterol Diarrhea ??? Sotalol Other Hair loss Requested Prescriptions Pending Prescriptions Disp Refills ??? amitriptyline (ELAVIL) 25 MG tablet 180 tablet Sig: Take 2 tablets by mouth at bedtime LAST FILL: 02/09/18 (ordered by Dr. Garrison) LAST OV: 02/16/18 F PETROLEUM ENGINEER documented in this encounter Plan of Treatment Not on file documented as of this encounter Goals Goal Patient Goal Type Associated Problems Recent Progress Patient-Stated? 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 8:09 AM CHIEF PETROLEUM ENGINEER) No Alisa Jaramillo HEMOGLOBIN A1C < 7.0 Result Component 5.4( 12:00 AM CDT) No Alisa Jaramillo documented as of this encounter Visit Diagnoses Not on filedocumented in this encounter Care Teams Trailer Mechanic Relationship Specialty [place] [address] [facility] [address] [place], [place] [id number] PCP - General Internal Medicine 03/31/18 05/30/22 Etienne Florez MD Orthopedic Surgery 12/09/14 [place] [address] [facility] [address] [place] [address] Oncology 09/15/17 [place] [address] [facility] [address] [place] [address] Neurology 06/26/18 [place] [address] [facility] [address] [place] [address] Cardiovascular Disease 06/26/18 [place] [address] [id number] Pulmonary Disease 06/26/18 Yuliya Ibarra MD [address] [place] [address] Endocrinology 06/26/18 Phuong Callejas DPM [address] [place], [place] [address] Podiatry 06/26/18 Sy Barrientos MD [address] [place] [address] Ophthalmology 06/26/18 [place] [address] [id number] Pulmonary Disease 06/26/18 Rico Gasca MD [address] [facility] [place] [address] Urology 06/26/18 Elle Landaverde MD [address] [facility] [place] [address] Vascular Surgery 06/26/18 Kirk Truong MD [address] [place] [address] Gastroenterology 06/26/18 [place] [address] [place] [address] [place] [phone] General Surgery 06/26/18 documented as of this encounter
--- OUTSIDE RECORDS SUMMARY | 2024-05-26 12:40 | XMS_ITS | Encounter Summary ---
Author Organization [facility] Address [address] [place] [address] Care Team Providers Care Procedures Analyst Name Role Phone Etienne Florez MD Unavailable Enrique Gonzalez MD Unavailable [phone] Theresa Camargo MD Primary Care Provider Nelson Ross MD Unavailable [phone] Laz Valencia MD Unavailable Russell Moran MD Unavailable Yuliya Ibarra MD Unavailable [phone] Phuong Callejas DPM Unavailable [phone] Sy Barrientos MD Unavailable Russell Moran MD Unavailable [phone] Rico Gasca MD Unavailable [phone] Elle Landaverde MD Unavailable Kirk Truong MD Unavailable Shira Love DO Unavailable [phone] Reason for Visit * Reason Comments Follow-up Encounter Details Date Type Department Care Team (Latest Contact Info) Description 12/17/2018 11:00 AM CDT Office Visit [facility] Health Neurosciences [address] [facility] [address] [place] [address] [place] [address] [facility] [address] [place] [address] Hereditary spastic paraplegia (HCC) (Primary Dx); Spinal stenosis of lumbar region without neurogenic claudication; Spondylosis of cervical region without myelopathy or radiculopathy Social History Tobacco Use Types Packs/Day [...] Reading Time Taken Comments Blood Pressure 128/62 12/17/2018 11:12 AM CDT Pulse 68 12/17/2018 11:12 AM CDT Temperature - - Respiratory Rate 14 12/17/2018 11:12 AM CDT Oxygen Saturation 94% 12/17/2018 11:12 AM CDT Inhaled Oxygen Concentration - - Weight 78.9 kg (174 lb) 12/17/2018 11:12 AM CDT Height 165.1 cm (5' 5 ) 12/17/2018 11:12 AM CDT Body Mass Index 28.96 12/17/2018 11:12 AM CDT documented in this [...] Instructions * Patient Instructions* Eva Sinha - 12/17/2018 12:12 PM CDT Call physician if symptoms worsen or with any questions. Take Medications as prescribed. For descriptions of a variety of neurological conditions please visit: [email or web address] Please contact our office 48 hours after testing is complete for results. YOU CAN GO TO [facility] TODAY TO HAVE YOUR XRAYS DONE. [place] [address] documented in this encounter Progress Notes * Nelson Ross MD - 12/17/2018 11:50 AM CDT CC: HSP IH: Has left quad pain. Has more of a dropped head. Having low back pain. Balance remains off. Doesnot do exercise. On Crestor. states weak in the legs. Drags legs more. Not using CPAP properly. No new stroke symptoms. Sees Blath for bladder. Only walks with a walker short distances MRI Reviewed from 2017 and spinal stenosis Outpatient Prescriptions Marked as Taking for the 12/17/18 encounter (Office Visit) with Nelson Ross MD [...] diabetes mellitus without complication 01/07/2011 Exam: BP 128/62 Pulse 68 Resp 14 Ht 1.651 m (5' 5 ) Wt 78.9 kg (174 lb) SpO2 94% BMI 28.96 kg/m2 In WC Non ambulatory No bruits Left hip and quad weak Distal vib loss Reflexes brisk with KJ 3/2 EOMs OK Neck decrease in ROM Right olecranon bursa ASSESSMENT: HSP Left L4 Cervical spine disease Neurogenic bladder Olecranon bursa PLAN: Xray cervical and lumbar Discuss bursa Discuss diagnosis and prognosis Discuss evaluation and treatment options Over 40 minutes were spent with the patient face to face. Over fifty percent of this time was spentcounseling and coordination of care. All questions were answered to the patients satisfaction. Discussed her prognosis in regard to her hereditary spastic paraparesis. Discuss her other findings include lumbar radiculopathy neurogenic bladder and olecranon bursa. Discussed her cervical spine disease. Discussed evaluation and potential treatment. Discussed prognosis and diagnosis as stated above documented in this encounter Plan of Treatment Not on file documented as of this encounter Goals Goal Patient Goal Type Associated Problems Recent Progress Patient-Stated? 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 Spinal stenosis of lumbar region without neurogenic claudication Spinal stenosis, lumbar region, without neurogenic claudication Spondylosis of cervical region without myelopathy or radiculopathy Cervical spondylosis without myelopathy Spondylosis of cervical region without myelopathy or radiculopathy Cervical spondylosis without myelopathy Spinal stenosis of lumbar region without neurogenic claudication Spinal stenosis, lumbar region, without neurogenic claudication documented in this encounter Care Teams Procedures Analyst Relationship Specialty [place] [address] [employer] [address] [place] [address] PCP - General Internal Medicine 03/31/18 05/30/22 Etienne Florez MD Orthopedic Surgery 12/09/14 [place] [address] [place] [address] Oncology 09/15/17 [place] [email or web address] [place] [address] Neurology 06/26/18 [place] [address] [place] [address] Cardiovascular Disease 06/26/18 [place] [address] [address] Pulmonary Disease 06/26/18 Yuliya Ibarra MD [address] [place] [address] Endocrinology 06/26/18 Phuong Callejas DPM [address] [place], [place] [address] Podiatry 06/26/18 Sy Barrientos MD [address] [place] [address] [place] [address] Ophthalmology 06/26/18 [place] [address] [address] Pulmonary Disease 06/26/18 Rico Gasca MD [address] [place] [address] Urology 06/26/18 Elle Landaverde MD [address] [place] [address] Vascular Surgery 06/26/18 Kirk Truong MD [address] [place] [address] Gastroenterology 06/26/18 [place] [address] [place] [phone] General Surgery 06/26/18 documented as of this encounter
--- OUTSIDE RECORDS SUMMARY | 2024-05-26 12:40 | XMS_ITS | Encounter Summary ---
Author Organization [facility] Health Address [address] [place] [address] Care Team Providers Care Expansion Joint Builder Name Role Phone Etienne Florez MD Unavailable [phone] Enrique Gonzalez MD Unavailable [phone] Theresa Camargo MD Primary Care Provider [phone] Reason for Visit * Reason Comments Refill Request Encounter Details Date Type Department Care Team (Late st Contact Info) Description 06/13/2018 Refill [facility] Medical [facility] - Family Medicine [address] [place] [address] [address] [place] [address] Jarrell Garrison MD [address] [facility] [address] [place] [address] Refill Request Social History Tobacco [...] encounter Miscellaneous Notes * Telephone Encounter - Breezy Townsend - 06/16/2018 9:57 AM CST Perla Leon Requested Prescriptions Pending Prescriptions Disp Refills ??? clopidogrel (PLAVIX) 75 MG tablet [Pharmacy Med Name: CLOPIDOGREL BISULFATE TABS 75MG] 90 tablet 0 Sig: TAKE 1 TABLET AT BEDTIME Allergies Allergen Reactions ??? Advair Diskus YEAS INFECTION ??? Aricept [Donepezil] Other I dont remember ??? Diltiazem Swelling ??? Metformin Diarrhea ??? Fluticasone Diarrhea ??? Piper Longum ??? Salmeterol Diarrhea ??? Sotalol Other Hair loss Last refill- 02/09/18 Last OV-10/22/17 Future OV-06/26/18 SETTER documented in this encounter Plan of Treatment Not on file documented as of this encounter Goals Goal Patient Goal Type Associated Problems Recent Progress Patient-Stated? 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 8:09 AM BED SETTER) No Alisa Jaramillo HEMOGLOBIN A1C < 7.0 Result Component 5.4( 12:00 AM CDT) No Alisa Jaramillo documented as of this encounter Visit Diagnoses Not on filedocumented in this encounter Care Teams Expansion Joint Builder Relationship Specialty Start [place] [address] [place] [id number] PCP - General Internal Medicine 03/31/18 05/30/22 Etienne Florez MD Orthopedic Surgery 12/09/14 [place] [address] [address] Oncology 09/15/17 documented as of this encounter
--- OUTSIDE RECORDS SUMMARY | 2024-05-26 12:40 | XMS_ITS | Encounter Summary ---
Author Organization [facility] Address [address] [place] [address] Care Team Providers Care Corporate Health Consultant Name Role Phone Etienne Florez MD Unavailable Enrique Gonzalez MD Unavailable [phone] Theresa Camargo MD Primary Care Provider Nelson Ross MD Unavailable Laz Valencia MD Unavailable Russell Moran MD Unavailable [phone] Yuliya Ibarra MD Unavailable Phuong Callejas DPM Unavailable Sy Barrientos MD Unavailable [phone] Russell Moran MD Unavailable [phone] Rico Gasca MD Unavailable [phone] Elle Landaverde MD Unavailable [phone] Kirk Truong MD Unavailable Shira Love DO Unavailable [phone] Reason for Visit * Reason Comments Follow-up Encounter Details Date Type Department Care Team (Late st Contact Info) Description 08/21/2018 10:20 AM CDT Office Visit [facility] Cancer Care [address] [place] [address] [place] [id number] [place] [address] Malignant neoplasm of upper-outer quadrant of [...] Sign Reading Time Taken Comments Blood Pressure 160/78 08/21/2018 10:43 AM CDT Pulse 88 08/21/2018 10:43 AM CDT Temperature 36.4 ??C (97.5 ??F) 08/21/2018 10:43 AM C DT Respiratory Rate 18 08/21/2018 10:43 AM CDT Oxygen Saturation - - Inhaled Oxygen Concentration - - Weight 90.5 kg (199 lb 8 oz) 08/21/2018 10:43 AM CDT Height 165.1 cm (5' 5 ) 08/21/2018 10:43 AM CDT Body Mass Index 33.2 08/21/2018 10:43 AM CDT documented in this encounter Functional [...] * Patient Instructions* Enrique Gonzalez MD - 08/21/2018 10:57 AM CDT Prolia today RTC in 6 months with BMP documented in this encounter Progress Notes * Enrique Gonzalez MD - 08/21/2018 10:45 AM CDT Oncology Clinic Follow Up Note Date of Follow Up: 08/21/2018 Patient Name:??Perla Edward??is a 77??y.o. Female ??= 1940 ? Surgeon:?Dr Shira Love? PCP: Jarrell Garrison MD ? 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 Arimidex 1 mg po daily started on 09/17/17 Prolia 60 mg SQ Q 6 months started on 01/14/18 ? HPI: Perla Leon??is an 77??y.o.??white woman with history of TIA, atrial fib, [...] on 09/17/17. She is tolerating it well. In the last month, she has persistent pneumonia symptoms and completed two courses of antibiotics. CT scan on 08/07/18 showed minimal bronchiectasis and minimal groundglass opacity right middle lobe. Her resp symptoms are finally getting better.. DEXA showed osteopenia for which she is on calcium and Vit D supplement and is started Prolia on 01/14/18. No other new complaints. ?? Medical History Past Medical History: Diagnosis Date [...] ??? TIA (transient ischemic attack) 2000, 08/11/2008 Medications Reviewed Surgical History Past Surgical History: Procedure Laterality Date ??? BREAST BIOPSY, EXCISION Left 08/25/2017 Left; EXCISION LEFT BREAST BX W/WIRE LOC IN RADIOLOGY ??? CARDIAC CATH 08/04/2002, 09/06/2010 ??? Cholecystectomy [...] Other Hair loss Social History Social History Substance Use Topics ??? Smoking status: Never Smoker ??? Smokeless tobacco: Never Used ??? Alcohol use No Review of Systems A complete review of systems was performed. The pertinent positives and/or negatives were noted in the HPI. Depression: PHQ-2:TOTAL POINT SCORE: 0 PHQ-9: ECOG 3 PS Physical Exam BP 160/78 (BP SITE: LEFT ARM, BP POSITION: SITTING, BP CUFF SIZE: 11) Pulse 88 Temp 97.5 ??F (36.4 ??C) (Temporal) Resp 18 Ht 5' 5 (1.651 m) Wt 199 lb 8 oz (90.5 kg) BMI 33.2 kg/m2 GENERAL: in no acute distress HEENT: Extra-ocular motions intact. Sclerae and conjunctivae normal. ORAL CAVITY AND OROPHARYNX: moist & without lesions. NECK: Supple. NODES: No palpable adenopathy BREAST: exam is benign CVS: RRR; no murmurs, rubs or gallops LUNGS: Clear to auscultation bilaterally ABDOMEN: Soft, non-tender, non-distended and without organomegaly. EXTREMITIES: No clubbing, cyanosis, edema SKIN: No rash, eccymoses, or petechiae NEURO: Alert & Oriented x 3. Assessment & Plan ? 1. Malignant neoplasm of upper-outer quadrant of left breast in female, ER+, HER2 negative, Stage IA ??- Arimidex started on 09/17/17 and has been tolerated well - Self breast exam - Mammogram scheduled end of this month ? 2. Obesity ? 3. Osteopenia: continue on Calcium and Vit D, Prolia started on 01/14/18 and will continue Q 6 months ? 4. ECOG 3 Poor Functional status ? 5. Family history of breast cancer : genetic testing sent ? 6. Famlial Spastic Paraparesis f/u with Dr Ross [facility] in 6 months for follow up Enrique Gonzalez MD 08/21/2018 12:06 PM documented in this encounter Plan of Treatment Not on file documented as of this encounter Goals Goal Patient Goal Type Associated Problems Recent Progress Patient-Stated? 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 8:09 AM MANAGER OUTREACH) No Alisa Jaramillo HEMOGLOBIN A1C < 7.0 Result Component 5.4( 12:00 AM CDT) No Alisa Jaramillo documented as of this encounter Procedures Procedure Name Priority Date/Time Associated Diagnosis Comments BASIC METABOLIC PANEL (CALCIUM TOTAL) STAT 08/21/2018 10:26 AM CDT Malignant neoplasm of upper-outer quadrant of left breast in female, estrogen receptor positive (HCC) documented in this encounter Results * (ABNORMAL) BASIC METABOLIC PANEL (CALCIUM TOTAL) (08/21/2018 10:26 AM CDT) Glucose 147(H) 74 - 106 mg/dL 08/21/2018 11:00 AM CDT [facility] Sodium 142 136 - 145 mmol/L 08/21/2018 11:00 AM CDT [facility] Potassium 3.8 3.5 - 5.1 mmol/L 08/21/2018 11:00 AM CDT [facility] Chloride 110(H) 98 - 107 mmol/L 08/21/2018 11:00 AM CDT [facility] CO2 27 23 - 31 mmol/L 08/21/2018 11:00 AM CDT [facility] Calcium 10.0 8.4 - 10.2 mg/dL 08/21/2018 11:00 AM CDT [facility] Anion Gap 5(L) 8 - 16 mmol/L 08/21/2018 11:00 AM CDT [facility] BUN 13 9.8 - 20.1 mg/dL 08/21/2018 11:00 AM CDT [facility] Creatinine 0.71 0.55 - 1.02 mg/dL 08/21/2018 11:00 AM CDT [facility] eGFR by MDRD >60 mL/min/1.7 3m2 08/21/2018 11:00 AM CDT [facility] eGFR by MDRD >60 mL/min/1.7 3m2 08/21/2018 11:00 AM CDT [facility] Blood BLOOD SPECIMEN / Unknown Venipuncture / Unknown 08/21/2018 10:26 AM CDT 08/21/2018 10:39 AM CDT Enrique Gonzalez MD LAB - CHEMISTRY ROWAN QUIROZ [facility] Organization Address City/State/ZIP Co de Phone Number [facility] [address] [place] [address] documented in this encounter Visit Diagnoses Diagnosis Malignant neoplasm of upper-outer quadrant of left breast in female, estrogen receptor positive (HCC)- Primary Osteopenia of multiple sites Use of aromatase inhibitors Class 2 obesity with body mass index (BMI) of 35.0 to 35.9 in adult, unspecified obesity type, unspecified whether serious comorbidity present documented in this encounter Care Teams Corporate Health Consultant Relationship Specialty Start [place] [address] [facility] [address] [place] [address] PCP - General Internal Medicine 03/31/18 05/30/22 Etienne Florez MD Orthopedic Surgery 12/09/14 [place] [address] [facility] [address] [place] [address] Oncology 09/15/17 [place] [address] [facility] [address] [place] [phone] Neurology 06/26/18 [place] [address] [facility] [address] [place] [address] Cardiovascular Disease 06/26/18 [place] [address] [place] [address] Pulmonary Disease 06/26/18 Yuliya Ibarra MD [address] [facility] [address] [place] [address] Endocrinology 06/26/18 Phuong Callejas DPM [address] [place] [address] Podiatry 06/26/18 Sy Barrientos MD [address] [place] [address] [place] [address] Ophthalmology 06/26/18 [place] [address] [address] Pulmonary Disease 06/26/18 Rico Gasca MD [address] [facility] [address] [place] [address] Urology 06/26/18 Elle Landaverde MD [address] [facility] [address] [place] [address] Vascular Surgery 06/26/18 Kirk Truong MD [address] [facility] [address] [place] [address] Gastroenterology 06/26/18 [place] [address] [place] [address] General Surgery 06/26/18 documented as of this encounter
--- OUTSIDE RECORDS SUMMARY | 2024-05-26 12:40 | XMS_ITS | Encounter Summary ---
Author Organization [facility] Address [address] [facility] [place] [address] Care Team Providers Care Putty Maker Name Role Phone Etienne Florez MD Unavailable Enrique Gonzalez MD Unavailable [phone] Theresa Camargo MD Primary Care Provider Nelson Ross MD Unavailable Laz Valencia MD Unavailable Russell Moran MD Unavailable Yuliya Ibarra MD Unavailable [phone] Phuong Callejas DPM Unavailable Sy Barrientos MD Unavailable [phone] Russell Moran MD Unavailable Rico Gasca MD Unavailable Elle Landaverde MD Unavailable [phone] Kirk Truong MD Unavailable Shira Love DO Unavailable [phone] Reason for Visit * Reason Comments Refill Request Encounter Details Date Type Department Care Team (Late st Contact Info) Description 10/27/2018 Refill [facility] Medical [facility] - Family Medicine [address] [facility] [address] [place] [address] [place] [address] [facility] [address] [place] [address] Refill Request Social History Tobacco [...] * Telephone Encounter - Manasa Cary - 10/27/2018 4:28 PM CDT Perla Leon Requested Prescriptions Pending [...] ??? Sotalol Other Hair loss Last refill- 06/16/18 Last OV-10/06/18 Future OV-11/06/18 documented in this encounter Plan of Treatment Not on file documented as of this encounter Goals Goal Patient Goal Type Associated Problems Recent Progress Patient-Stated? 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 8:09 AM PILE DRIVER OPERATOR BARGE MOUNTED) No Alisa Jaramillo HEMOGLOBIN A1C < 7.0 Result Component 5.4( 12:00 AM CDT) No Alisa Jaramillo documented as of this encounter Visit Diagnoses Not on filedocumented in this encounter Care Teams Putty Maker Relationship Specialty Start [place] [address] [facility] [address] [place], [place] [id number] PCP - General Internal Medicine 03/31/18 05/30/22 Etienne Florez MD Orthopedic Surgery 12/09/14 [place] [address] [facility] [address] [place] [phone] Oncology 09/15/17 [place] [address] [facility] [address] [place] [address] Neurology 06/26/18 [place] [address] [facility] [address] [place] [address] Cardiovascular Disease 06/26/18 [place] [address] [address] Pulmonary Disease 06/26/18 Yuliya Ibarra MD [address] [place] [address] Endocrinology 06/26/18 Phuong Callejas DPM [address] [place], [place] [address] Podiatry 06/26/18 Sy Barrientos MD [address] [place] [address] Ophthalmology 06/26/18 [place] [address] [id number] Pulmonary Disease 06/26/18 Rico Gasca MD [address] [facility] [address] [place] [address] Urology 06/26/18 Elle Landaverde MD [address] [facility] [address] [place] [address] Vascular Surgery 06/26/18 Kirk Truong MD [address] [facility] [address] [place] [address] Gastroenterology 06/26/18 [place] [address] [address] [facility] [address] [place] [address] General Surgery 06/26/18 documented as of this encounter
--- OUTSIDE RECORDS SUMMARY | 2024-05-26 12:40 | XMS_ITS | Encounter Summary ---
Author Organization [facility] Address [address] [place] [address] Care Team Providers Care Flower Grower Name Role Phone Etienne Florez MD Unavailable Enrique Gonzalez MD Unavailable [phone] Theresa Camargo MD Primary Care Provider Nelson Ross MD Unavailable Laz Valencia MD Unavailable Russell Moran MD Unavailable Yuliya Ibarra MD Unavailable Phuong Callejas DPM Unavailable [phone] Sy Barrientos MD Unavailable Russell Moran MD Unavailable Rico Gasca MD Unavailable Elle Landaverde MD Unavailable Kirk Truong MD Unavailable Shira Love DO Unavailable [phone] Reason for Visit * Reason Onset Date Comments Med Question 10/08/2018 Encounter Details Date Type Department Care Team (Late st Contact Info) Description 10/08/2018 Telephone [facility] Neurosciences [address] [facility] [address] [place] [address] [place] [address] [facility] [address] [place] [address] Med Question Social History Tobacco Use Types [...] encounter Miscellaneous Notes * Telephone Encounter - Margarito Bills - 10/08/2018 4:07 PM CDT Spooke with Bekah informed her Dr. Rsos has sent in Baclofen 10mg TID, but to start her out on once a day. She stated understanding. * Telephone Encounter - Nelson Ross MD - 10/08/2018 2:51 PM CDT I sent in baclofen 10 mg TID but can start one a day * Telephone Encounter - Margarito Bills - 10/08/2018 2:38 PM CDT Pt daughter called and stated they would like to try a muscle relaxer for patient's muscle pain. Please Advise documented in this encounter Plan of Treatment Not on file documented as of this encounter Goals Goal Patient Goal Type Associated Problems Recent Progress Patient-Stated? 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 8:09 AM CONTRACT NEGOTIATOR) No Alisa Jaramillo HEMOGLOBIN A1C < 7.0 Result Component 5.4( 12:00 AM CDT) No Alisa Jaramillo documented as of this encounter Visit Diagnoses Not on filedocumented in this encounter Care Teams Flower Grower Relationship Specialty [place] [address] [facility] [address] [place] [address] PCP - General Internal Medicine 03/31/18 05/30/22 Etienne Florez MD Orthopedic Surgery 12/09/14 [place] [address] [facility] [address] [place] [address] Oncology 09/15/17 [place] [address] [facility] [address] [place] [phone] Neurology 06/26/18 [place] [address] [facility] [address] [place] [phone] Cardiovascular Disease 06/26/18 [place] [address] [id number] Pulmonary Disease 06/26/18 Yuliya Ibarra MD [address] [place] [address] Endocrinology 06/26/18 Phuong Callejas DPM [address] [place] [address] Podiatry 06/26/18 Sy Barrientos MD [address] [place], [place] [address] [address] Ophthalmology 06/26/18 [place] [address] [address] Pulmonary Disease 06/26/18 Rico Gasca MD [address] [facility] [address] [place] [address] Urology 06/26/18 Elle Landaverde MD [address] [place] [address] Vascular Surgery 06/26/18 Kirk Truong MD [address] [facility] [address] [place] [address] Gastroenterology 06/26/18 [place] [address] [address] [place] [address] General Surgery 06/26/18 documented as of this encounter
--- OUTSIDE RECORDS SUMMARY | 2024-05-26 12:40 | XMS_ITS | Encounter Summary ---
Author Organization [facility] Address [address] [facility] [address] [place] [address] Care Team Providers Care Iron Worker Name Role Phone Etienne Florez MD Unavailable Enrique Gonzalez MD Unavailable [phone] Theresa Camargo MD Primary Care Provider [phone] Nelson Ross MD Unavailable [phone] Laz Valencia MD Unavailable Russell Moran MD Unavailable Yuliya Ibarra MD Unavailable [phone] Phuong Callejas DPM Unavailable Sy Barrientos MD Unavailable Russell Moran MD Unavailable Rico Gasca MD Unavailable Elle Landaverde MD Unavailable Kirk Truong MD Unavailable [phone] Shira Love DO Unavailable Reason for Visit * Reason Onset Date Comments URI 07/13/2018 Encounter Details Date Type Department Care Team (Late st Contact Info) Description 07/13/2018 Telephone [facility] - Family Medicine [address] [facility] [address] [place] [address] [place] [address] [facility] [address] [place] [address] URI Social History Tobacco Use Types Packs/Day Years [...] * Telephone Encounter - Milton Naidu - 07/13/2018 1:02 PM CST Called and informed pt that she sent out an antibiotic. O ADJUSTER * Telephone Encounter - Milton Naidu - 07/13/2018 9:38 AM CST Assessment: Duration: 3-4 days Cough sx: yes and dry and feels the cough in chest Nasal/Sinus sx: yes, pain and pressure Ear sx: none Throat/Neck sx: none Fever: none Headache: none Therapies tried and results: None Patient Request/Expectations: Medication O ADJUSTER * Telephone Encounter - Sahra Avalos - 07/13/2018 9:32 AM CST Who is calling? self If other than self is caller listed on the HIPAA? yes If caller is anyone other than listed above, where are they calling from? N/A What is the reason for call? Stating she has a really bad cough and not sure if it could be an upper respiratory. Patient asks if she could be prescribed something Expected Response from the Clinic? ( ex. Call back, etc..) call back O ADJUSTER documented in this encounter Plan of Treatment Not on file documented as of this encounter Goals Goal Patient Goal Type Associated Problems Recent Progress Patient-Stated? 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 8:09 AM RADIO ADJUSTER) No Alisa Jaramillo HEMOGLOBIN A1C < 7.0 Result Component 5.4( 12:00 AM CDT) No Alisa Jaramillo documented as of this encounter Visit Diagnoses Diagnosis Acute URI- Primary Acute upper respiratory infections of unspecified site documented in this encounter Care Teams Iron Worker Relationship Specialty [place] [address] [place] [address] PCP - General Internal Medicine 03/31/18 05/30/22 Etienne Florez MD Orthopedic Surgery 12/09/14 [place] [address] [place] [address] Oncology 09/15/17 [place] [address] [address] [place] [address] Neurology 06/26/18 [place] [address] [facility] [address] [place] [address] Cardiovascular Disease 06/26/18 Russell [place] [id number] [place] [address] [address] [place] [address] Pulmonary Disease 06/26/18 Yuliya Ibarra MD [address] [facility] [address] [place] [address] Endocrinology 06/26/18 Phuong Callejas DPM [address] [place] [address] Podiatry 06/26/18 Sy Barrientos MD [facility] [place] [address] Ophthalmology 06/26/18 [place] [address] [address] [place] [address] Pulmonary Disease 06/26/18 Rico Gasca MD [address] [facility] [address] [place] [address] Urology 06/26/18 Elle Landaverde MD [address] [place] [address] Vascular Surgery 06/26/18 Kirk Truong MD [address] [place] [address] Gastroenterology 06/26/18 [place] [address] [address] [facility] [address] [place] [address] General Surgery 06/26/18 documented as of this encounter
--- OUTSIDE RECORDS SUMMARY | 2024-05-26 12:40 | XMS_ITS | Encounter Summary ---
Author Organization [facility] Address [address] [facility] [address] [address] Care Team Providers Care Stores Laborer Name Role Phone Etienne Florez MD Unavailable [phone] Enrique Gonzalez MD Unavailable [phone] Theresa Camargo MD Primary Care Provider [phone] Reason for Visit * Reason Comments Follow-up Encounter Details Date Type Department Care Team (Late st Contact Info) Description 04/28/2018 2:00 PM TURBO ELECTRIC OPERATOR Office Visit [facility] [address] [place] [address] [place] [address] [address] Malignant neoplasm of upper-outer quadrant of left breast in female, estrogen receptor positive (HCC) (Primary Dx); Use of aromatase inhibitors; Osteopenia of neck of femur, unspecified laterality; [...] Sign Reading Time Taken Comments Blood Pressure 115/64 04/28/2018 2:19 PM TURBO ELECTRIC OPERATOR Pulse 72 04/28/2018 2:19 PM TURBO ELECTRIC OPERATOR Temperature 36.8 ??C (98.2 ??F) 04/28/2018 2:19 PM CS T Respiratory Rate 18 04/28/2018 2:19 PM TURBO ELECTRIC OPERATOR Oxygen Saturation - - Inhaled Oxygen Concentration - - Weight 89.8 kg (198 lb) 04/28/2018 2:19 PM TURBO ELECTRIC OPERATOR Height 165.1 cm (5' 5 ) 04/28/2018 2:19 PM TURBO ELECTRIC OPERATOR Body Mass Index 32.95 04/28/2018 2:19 PM TURBO ELECTRIC OPERATOR documented in this encounter Functional Status Functional [...] * Patient Instructions* Enrique Gonzalez MD - 04/28/2018 2:40 PM TURBO ELECTRIC OPERATOR RTC in 3 months with BMP for follow up and next dose of Prolia O ELECTRIC OPERATOR documented in this encounter Progress Notes * Enrique Gonzalez MD - 04/28/2018 2:27 PM CST Oncology Clinic Follow Up Note Date of Follow Up: 04/28/2018 Patient Name:??Perla Leon??is a 77 y.o. Female ??= 1940 ? Surgeon:?Dr Shira Love? PCP: Jarrell Garrison MD ? 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 Arimidex 1 mg po daily started on 09/17/17 Prolia 60 mg SQ Q 6 months started on 01/14/18 ? HPI: Perla Leon??is an 77 y.o.??white woman with history of TIA, atrial fib, DM, heart murmur, partalseizures, famlila spastic paraparesis and obesity, diagnosed with left breast cancer in August 2017 and is currently on Arimidex came today for 3 months follow up. She??initially underwent routine screening mammogram on 07/02/17 that showed a questionable ??spiculated mass in the upper outer left breast. ??Diagnostic mammogram 07/30/17 and breast ultrasound exam ??Confirmed the abnormality. She had excisional biopsy on [...] 1 mg po daily on 09/17/17. She denies hot flashes, significant joint painor mood swings but has noted some hair loss. She recently noted transient skin rash in the left armbut resolved by itself. DEXA showed osteopenia for which she is on calcium and Vit D supplement and is started Prolia on 01/14/18. No other new complaints. Medical History Past Medical History: Diagnosis Date ??? Asthma 2013 ??? Atrial fibrillation 2016 ??? Breast cancer left ??? Broken ankle [...] TIA (transient ischemic attack) 2000, 08/11/2008 Medications Current Outpatient Prescriptions Medication Sig Dispense Refill ??? levothyroxine (SYNTHROID) 25 MCG tablet Take 25 mcg by mouth daily before breakfast ??? esomeprazole (NEXIUM) 40 MG capsule TAKE 1 CAPSULE DAILY 90 capsule 0 ??? amitriptyline (ELAVIL) 25 MG tablet Take 2 tablets by mouth at bedtime 180 tablet 1 ??? anastrozole (ARIMIDEX) 1 MG tablet Take 1 tablet by mouth once daily 90 tablet 0 ??? empagliflozin (JARDIANCE) 10 MG tablet Take 1 tablet by mouth once daily 90 tablet 0 ??? clopidogrel (PLAVIX) 75 MG tablet Take 1 tablet by mouth at bedtime 90 tablet 0 ??? potassium chloride (KLOR-CON 10) 10 MEQ tablet The patient should only Take 4 tabs with breakfast 360 tablet 0 ??? polyethylene glycol 3350 (MIRALAX) packet Take 17 g by mouth once daily ??? calcium carbonate-vitamin D (CALTRATE 600+D) 600-400 MG-UNIT tablet Take 1 tablet by mouth 2 times daily 60 tablet ??? rosuvastatin (CRESTOR) 10 MG tablet Take 1 tablet by mouth at bedtime 90 tablet 3 ??? polyethyl glycol-propyl glycol (SYSTANE) 0.4-0.3 % ophth solution 1 drop ??? menthol-zinc oxide (CALMOSEPTINE) 0.44-20.6 % ointment Apply to affected area as needed for Other ??? psyllium (METAMUCIL) 58.6 % powder Take 1 Packet by mouth 3 times daily Reasons: Constipation ??? hydroxypropyl methylcellulose 0.3% (SYSTANE OVERNIGHT THERAPY) 0.3 % ophthalmic gel Instill 1 Drop into both eyes nightly as needed for Dry Eyes ??? furosemide (LASIX) 40 MG tablet Take 1 Tab by mouth once daily 90 Tab 2 ??? verapamil SR 24hr (VERELAN) 240 MG capsule Take 240 mg by mouth once daily ??? FLECAINIDE ACETATE PO Take 50 mg by mouth 2 times daily ??? aspirin (ASPIRIN) 81 MG tablet Take 81 mg by mouth once daily ??? insulin detemir (LEVEMIR) vial Inject 6 Units subcutaneously at bedtime ??? sitaGLIPtin (JANUVIA) 50 MG tablet Take 100 mg by mouth once daily ??? latanoprost (XALATAN) 0.005 % ophthalmic solution Instill 1 drop into both eyes at bedtime ??? glimepiride (AMARYL) 1 MG tablet Take 1 Tab by mouth 3 times daily,before breakfast/lunch/bedtime 1.5 tab po with Breakfast, 2 tab with lunch, 2.5 with dinner. ??? albuterol HFA (PROAIR HFA) 108 (90 BASE) MCG/ACT inhaler Take 2 Puffs by mouth every 4 hours asneeded. ??? multivitamin with iron (ONE A DAY WITH IRON) tablet Take 1 Tab by mouth once daily. ??? Cyanocobalamin (B-12) 1000 MCG TBCR Take by mouth once daily. ??? lubiprostone (AMITIZA) 24 MCG capsule Take 1 capsule by mouth 2 times daily with morning and evening meal (Patient not taking: Reported on 04/28/2018) 60 capsule 0 ??? lubiprostone (AMITIZA) 24 MCG capsule Take 1 capsule by mouth 2 times daily Reasons: Chronic Constipation of Unknown Cause (Patient not taking: Reported on 04/28/2018) 60 capsule 11 ??? metOLazone (ZAROXOLYN) 2.5 MG tablet Take 2.5 mg by mouth every 7 days No current facility-administered medications for this visit. Surgical History Past Surgical History: Procedure Laterality [...] ??? Alcohol use No Review of Systems 10 point organ system was all reviewed and the pertinent positives included in the HPI above. The rest was negative. Depression: PHQ-2:TOTAL POINT SCORE: 0 PHQ-9: ECOG 3 PS Physical Exam BP 115/64 (BP SITE: RIGHT ARM, BP POSITION: SITTING, BP CUFF SIZE: 11) Pulse 72 Temp 98.2 ??F (36.8??C) (Temporal) Resp 18 Ht 5' 5 (1.651 m) Wt 198 lb (89.8 kg) BMI 32.95 kg/m2 GENERAL: in no acute distress HEENT: Extra-ocular motions intact. Sclerae and conjunctivae normal. ORAL CAVITY AND OROPHARYNX: moist & without lesions. NECK: Supple. NODES: No palpable adenopathy BREAST: Bilateral breast exam is benign CVS: RRR; no murmurs, rubs or gallops LUNGS: Clear to auscultation bilaterally ABDOMEN: Soft, non-tender, non-distended and without organomegaly. Liver percusses to costal margin EXTREMITIES: No clubbing, cyanosis, edema SKIN: two hyperpigmented skin lesions in the back, bout 5-6 mm NEURO: Alert & Oriented x 3. Assessment & Plan ? 1. Malignant neoplasm of upper-outer quadrant of left breast in female, ER+, HER2 negative, Stage IA ?- Arimidex started on 09/17/17 and has been tolerated well except hair loss - Self breast exam ?? 2. Obesity ? 3. Osteopenia: continue on Calcium and Vit D, Prolia started on 01/14/18 and will continue Q 6 months ?? 4. ECOG 3 Poor Functional status ? 5. Family history of breast cancer : genetic testing sent ?? 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 RTC in 3 months for follow up and Prolia Enrique Gonzalez MD 04/28/2018 4:06 PM O ELECTRIC OPERATOR documented in this encounter Plan of Treatment Not on file documented as of this encounter Goals Goal Patient Goal Type Associated Problems Recent Progress Patient-Stated? 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 8:09 AM TURBO ELECTRIC OPERATOR) No Alisa Jaramillo HEMOGLOBIN A1C < 7.0 Result Component 5.4( 12:00 AM CDT) No Alisa Jaramillo documented as of this encounter Visit Diagnoses Diagnosis Malignant neoplasm of upper-outer quadrant of left breast in female, estrogen receptor positive (HCC)- Primary Use of aromatase inhibitors Osteopenia of neck of femur, unspecified laterality Sleep apnea, unspecified type documented in this encounter Care Teams Stores Laborer Relationship Specialty Start [place] [address] [address] PCP - General Internal Medicine 03/31/18 05/30/22 Etienne Florez MD Orthopedic Surgery 12/09/14 [place] [address] [address] Oncology 09/15/17 documented as of this encounter
--- OUTSIDE RECORDS SUMMARY | 2024-05-26 12:40 | XMS_ITS | Encounter Summary ---
Author Organization [facility] Address [address] [place] [address] Care Team Providers Care Seafood Processor Name Role Phone Etienne Florez MD Unavailable Enrique Gonzalez MD Unavailable [phone] Destiney Hooper MD Primary Care Provider [phone] Nelson Ross MD Unavailable Laz Valencia MD Unavailable Russell Moran MD Unavailable [phone] Yuliya Ibarra MD Unavailable [phone] Phuong Callejas DPM Unavailable Sy Barrientos MD Unavailable Russell Moran MD Unavailable [phone] Rico Gasca MD Unavailable Elle Landaverde MD Unavailable Kirk Truong MD Unavailable [phone] Shira Love DO Unavailable [phone] Reason for Visit * Reason Comments Follow-up 4 months f/u Encounter Details Date Type Department Care Team (Late st Contact Info) Description 11/06/2018 9:45 AM CDT Office Visit 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, unspecified vessel or lesion type (Primary Dx); Heart murmur; CATY (obstructive sleep apnea); TIA (transient ischemic attack); Lymphatic edema; Partial seizure (HCC); Primary hypothyroidism; Chronic atrial fibrillation (HCC); Type 2 diabetes mellitus without complication, with long-term current use of insulin (HCC); Vitamin D deficiency; Hyperparathyroidism (HCC); Anemia, unspecified type; Screen for colon cancer Social History Tobacco Use Types Packs/Day Years [...] Sign Reading Time Taken Comments Blood Pressure 128/64 11/06/2018 9:42 AM CDT Pulse 69 11/06/2018 9:42 AM CDT Temperature - - Respiratory Rate 18 11/06/2018 9:42 AM CDT Oxygen Saturation 96% 11/06/2018 9:42 AM CDT Inhaled Oxygen Concentration - - Weight 86.3 kg (190 lb 3.2 oz) 11/06/2018 9:42 A M CDT Height 165.1 cm (5' 5 ) 11/06/2018 9:42 AM CDT Body Mass Index 31.65 11/06/2018 9:42 AM CDT documented in this encounter Functional [...] as of this encounter Progress Notes * Destiney Hooper MD - 11/06/2018 9:39 AM CDT SUBJECTIVE: Perla Leon is a 77 year old female with Chief Complaint Patient presents with ??? Follow-up 4 months f/u Past Medical History: Diagnosis Date ??? Asthma [...] T1cN0(i-)M0, stage IA. ER pos 97% (strong), MD pos 23% (moderate), Her-2 neg (1+ on [...] right middle lobe. Follow up with Dr. Hooper when you finish rx, trying to get [...] diabetes mellitus without complication 01/07/2011 Social History Social History ??? Marital status: Spouse name: N/A ??? Number of children: 3 ??? 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 Smoking [...] ??? aspirin (ASPIRIN) 81 MG tablet ??? baclofen (LIORESAL) 10 MG tablet ??? calcium carbonate-vitamin D (CALTRATE [...] chloride ER (KLOR-CON) 10 MEQ tablet ??? psyllium (METAMUCIL) 58.6 % powder ??? rosuvastatin (CRESTOR) 10 MG tablet ??? rosuvastatin (CRESTOR) 10 MG tablet ??? sitaGLIPtin (JANUVIA) 50 MG tablet ??? verapamil SR 24hr (VERELAN) 240 MG capsule No current facility-administered medications for this visit. HPI: here for follow up on: Coronary disease, chronic AFib, diabetes, cholesterol, history of anemia, hypertension, TIA, hyperparathyroidism, hypothyroidism. She has multiple medical issues. She is due to update some blood work. She has been having some more falls lately she has poor balance due to underlying neurologic issues. She does see Neurology. She says family has been in touch with them and she thinks she is supposed to see them in November but I reminded her that I see the next visit is listed as February. The going to call them to see if she can get in sooner. her sleep is off but this is not new for her as she does not keep regular sleep patterns. She does have to sleep in a chair. Bowels and urine are off and she says specialist for that there been no new changes. Her weight is down even though her appetite is good. Her blood sugars have been running okay. Sleeping ok. Appetite good. No chest pain. No SOB/wheezing. No abdominal pain. No nvdc. No edema. Patient Care Team: Destiney Hooper MD as PCP - General (Internal Medicine) Destiney Hooper MD as PCP - [facility] Etienne Florez MD (Orthopedic Surgery) Enrique [...] OBJECTIVE: Wt Readings from Last 3 Encounters: 11/06/18 86.3 kg (190 lb 3.2 oz) 10/28/18 88.5 kg (195 lb) 10/06/18 88.7 kg (195 lb 9.6 oz) Temp Readings from Last 3 Encounters: 10/06/18 97.9 ??F (36.6 ??C) (Oral) 08/21/18 97.5 ??F (36.4 ??C) (Temporal) 08/06/18 97.9 ??F (36.6 ??C) (Oral) BP Readings from Last 3 Encounters: 10/06/18 134/60 08/21/18 160/78 08/18/18 118/56 Pulse Readings from Last 3 Encounters: 11/06/18 69 10/06/18 64 08/21/18 88 Body mass index is 31.65 kg/(m^2). General: alert, cooperative, no distress, oriented to person, place, and time, well appearing. Appears stated age. In a wheelchair. ENT: ENT exam normal, no neck [...] in context and clarity memory intact grossly Recent Labs Component Name 08/21/18 1026 02/13/18 1427 01/14/18 1119 09/08/17 0807 06/12/17 0823 12/28/16 1814 06/13/16 1245 SODIUM 142 - 139 - 142 - 141 - 145 144 POTASSIUM 3.8 4.0 3.2* - 3.4* - 3.5 - 3.9 4.1 CHLORIDE 110* - 101 - 109* - 102 - 111* 108* CO2 27 - 30 - 27 - 31 - 27 27 BUN 13 - 14 - 19 - 15 - 17 18 CREATININE 0.71 - 0.95 - 0.84 - 0.92 - 0.97 0.81 GLUCOSE 147* - 178* - 136* - 90 - 132* 88 CALCIUM 10.0 - 9.9 - 9.7 - 10.4 - 9.7 10.3* ALBUMIN - - - - - - 4.2 - 3.6 4.0 ALKPHOS - - - - - - 90 - 127* 127* ALT - - - - - - 30 AST - - - - - - 17 - 18 18 TBIL - - - - - - 0.4 - 0.2 0.4 TPROT - - - - - - 6.6 - 6.6 6.8 EGFR >60 - 57 - >60 - 60 - 56 >60 - = values in this interval [...] Recent Labs Component Name 05/02/17 12/30/16 0430 06/13/16 1245 TSH 5.24 3.55 4.45* Recent Labs Component Name 06/13/16 1245 [id number] 18.01* HEALTH MAINTENANCE: Health Maintenance Topic Date Due ??? ZOSTER VACCINE (2 of 3) 10/19/2007 ??? DIABETES-EYE EXAM 06/13/2016 ??? ANNUAL MEDICARE WELLNESS VISIT 06/14/2016 ??? DIABETES-HGB A1C 02/25/2018 ??? HCC (Chart Reviewer Use Only) 02/06/2019 ??? DIABETES-FOOT EXAM WITH MONOFILAMENT 03/19/2019 ??? MAMMOGRAM 09/15/2019 ??? COLON CA SCREENING 05/19/2021 ??? DTAP/TDAP/TD VACCINES (4 - Td) 08/29/2025 ??? PNEUMOCOCCAL VACCINE Completed ??? HIB VACCINE Aged Out ??? MENINGOCOCCAL VACCINE Aged Out ??? BONE DENSITY TESTING Completed ASSESSMENT: ICD-10-CM 1. 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 Heart murmur R01.1 CBC WITH DIFFERENTIAL COMPREHENSIVE METABOLIC PANEL 3. CATY (obstructive sleep apnea) G47.33 COMPREHENSIVE METABOLIC PANEL 4. TIA (transient ischemic attack) G45.9 5. Lymphatic edema I89.0 6. Partial seizure R56.9 7. Primary hypothyroidism E03.9 TSH 8. Chronic atrial fibrillation I48.2 COMPREHENSIVE METABOLIC PANEL 9. Type 2 diabetes mellitus without complication, with long-term current use of insulin E11.9 CBC WITH DIFFERENTIAL Z79.4 COMPREHENSIVE METABOLIC PANEL HEMOGLOBIN A1C 10. Vitamin D deficiency E55.9 VITAMIN D 25-HYDROXY 11. Hyperparathyroidism E21.3 PTH INTACT PLAN: Orders Placed This Encounter ??? CBC WITH DIFFERENTIAL ??? COMPREHENSIVE METABOLIC PANEL ??? HEMOGLOBIN A1C ??? TSH ??? VITAMIN D 25-HYDROXY ??? PTH INTACT she has get back in with Neurology before February. Her gait is off. They did really want to start physical therapy they agreed update blood work and get in with the neurologist to see if they have any other thoughts her options. I do not think this is cardiac in nature. Her balance is off. If Neurology does not feel that there is any medicine adjustment to be made if her labs are normal she may benefit from gait and balance rehab. documented in this encounter Miscellaneous Notes * Addendum Note - Destiney Hooper MD - 11/18/2018 9:27 AM CDTAddended by: DESTINEY HOOPER on: 11/18/2018 09:27 AM Modules accepted: Orders documented in this encounter Plan of Treatment Not on file documented as of this encounter Goals Goal Patient Goal Type Associated Problems Recent Progress Patient-Stated? 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 8:09 AM MAPLE PRODUCTS MAKER) No Alisa Jaramillo HEMOGLOBIN A1C < 7.0 Result Component 5.4( 12:00 AM CDT) No Alisa Jaramillo documented as of this encounter Procedures Procedure Name Priority Date/Time Associated Diagnosis Comments COLOGUARD TEST Routine 12/29/2018 12:30 PM CDT Anemia, unspecified type Screen for colon cancer PTH INTACT Routine 11/06/2018 10:44 AM CDT Hyperparathyroidism (HCC) HEMOGLOBIN A1C Routine 11/06/2018 10:43 AM CDT Type 2 diabetes mellitus without complication, with long-term current use of insulin (HCC) VITAMIN D 25-HYDROXY Routine 11/06/2018 10:43 AM CDT Vitamin D deficiency CBC W AUTO DIFFERENTIAL Routine 11/06/2018 10:43 AM CDT 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, unspecified vessel or lesion type Heart murmur Type 2 diabetes mellitus without complication, with long-term current use of insulin (HCC) COMPREHENSIVE METABOLIC PANEL Routine 11/06/2018 10:43 AM CDT 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 (Table 3, Raine Thayer al, N Engl J Med 2014;370(14):8222-8658.) Test Type: Composite algorithmic analysis of stool [...] can be accessed at the following location: [email or web address]/results. Additional description of the Cologuard test process, warnings and precautions can be found at www.cologuardtest.com. Rx Only. Stool specimen (specimen) STOOL SPECIMEN / Unknown 12/29/2018 12:30 PM CDT 12/30/2018 2:12 PM CDT Destiney Hooper MD LAB - CHEMISTRY ROAWN QUIROZ Performing Organization Address City/[facility] Co de Phone Number [facility] [address] [place] [address] [facility] [address] [place] [address]. [place] [address] * PTH INTACT (11/06/2018 10:44 AM CDT) PTH Intact 52 15 - 65 pg/mL [facility] INSURANCE BILL Blood BLOOD SPECIMEN / Unknown 11/06/2018 10:44 AM CDT 11/06/2018 Narrative Resulting Agency Comment Lab Testing performed at: [facility] [place] [address] [facility] ??[facility] [id number] Destiney Hooper MD LAB - CHEMISTRY ROWAN QUIROZ Performing Organization Address City/[facility]/ZIP Co de Phone Number [facility] INSURANCE BILL [address] [place] [address] * (ABNORMAL) VITAMIN D 25-HYDROXY (11/06/2018 10:43 AM CDT) Vitamin D, 25 Hydroxy 28.5(L) 30 - 100 ng/mL [facility] INSURANCE BILL Comment: Vitamin D Status: ?Deficiency ? <20 ? ng/mL ?Insufficiency ?? 20-30 ??ng/mL ?Sufficiency ? 30-100 ng/mL ?Toxicity ? >100 ?ng/mL Blood BLOOD SPECIMEN / Unknown 11/06/2018 10:43 AM CDT 11/06/2018 Narrative Resulting Agency Comment Lab Testing performed at: [address] ?? [place] [id number] Destiney Hooper MD LAB - CHEMISTRY ROWAN QUIROZ Performing Organization Address [facility] Co de Phone Number [facility] INSURANCE BILL [address] [place] [address] * TSH (11/06/2018 10:43 AM CDT) Pathologist [facility] TSH 2.9182 0.358 - 3.74 uIU/mL [facility] INSURANCE BILL Blood BLOOD SPECIMEN / Unknown 11/06/2018 10:43 AM CDT 11/06/2018 Narrative Resulting Agency Comment Lab Testing performed at: [address] ?? [place] [id number] Destiney Hooper MD LAB - CHEMISTRY ROWAN QUIROZ Performing Organization Address [facility]/ZIP Co de Phone Number [facility] INSURANCE BILL [address] [place] [address] * HEMOGLOBIN A1C (11/06/2018 10:43 AM CDT) Pathologist [facility] Hemoglobin A1c 5.3 4.0 - 6.1 % [facility] INSURANCE BILL Comment: AVERAGE GLUCOSE MG/DL BLOOD ??105 ?mg/dL Attention clinician: ??Reference Range has changed. Blood BLOOD SPECIMEN / Unknown 11/06/2018 10:43 AM CDT 11/06/2018 Narrative Resulting Agency Comment Lab Testing performed at: [facility] [address] [address] ?? [place] [phone] Destiney Hooper MD LAB - CHEMISTRY ROWAN QUIROZ [facility] INSURANCE BILL [address] [place] [address] * (ABNORMAL) COMPREHENSIVE METABOLIC PANEL (11/06/2018 10:43 AM CDT) Glucose 82 74 - 106 mg/dL [facility] INSURANCE BILL BUN 18 9.8 - 20.1 mg/dL [facility] INSURANCE BILL Creatinine 0.66 0.55 - 1.02 mg/dL [facility] INSURANCE BILL eGFR by MDRD >60 mL/min/1.7 3m2 [facility] INSURANCE BILL eGFR by MDRD >60 mL/min/1.7 3m2 [facility] INSURANCE BILL Comment:Attention clinician: BUN Reference Range has changed. Sodium 144 136 - 145 mmol/L [facility] INSURANCE BILL Potassium 3.6 3.5 - 5.1 mmol/L [facility] INSURANCE BILL Chloride 105 98 - 107 mmol/L [facility] INSURANCE BILL CO2 30 23 - 31 mmol/L [facility] INSURANCE BILL Calcium 10.5(H) 8.4 - 10.2 mg/dL [facility] INSURANCE BILL Protein Total 6.1(L) 6.4 - 8.3 gm/dL [facility] INSURANCE BILL Albumin 3.9 3.2 - 4.6 gm/dL [facility] INSURANCE BILL Bilirubin Total 0.2 0.2 - 1.0 mg/dL [facility] INSURANCE BILL Alkaline Phosphatase 75 40 - 150 U/L [facility] INSURANCE BILL AST 15 5 - 34 U/L [facility] INSURANCE BILL ALT 16 13 - 61 U/L [facility] INSURANCE BILL Blood BLOOD SPECIMEN / Unknown 11/06/2018 10:43 AM CDT 11/06/2018 Narrative Resulting Agency Comment Lab Testing performed at: [facility] [address] ?? [place] [id number] Destiney Hooper MD LAB - CHEMISTRY ROWAN QUIROZ [facility] INSURANCE BILL [address] [place] [address] * (ABNORMAL) CBC WITH DIFFERENTIAL (11/06/2018 10:43 AM CDT) WBC 7.2 4.4 - 10.7 x10E9/L [facility] INSURANCE BILL RBC 4.59 3.80 - 5.20 x10E12/L [facility] INSURANCE BILL Hemoglobin 11.2(L) 12.0 - 15.6 gm/dL [facility] INSURANCE BILL Hematocrit 38.2 35.9 - 45.5 % [facility] INSURANCE BILL MCV 83.2 80.7 - 98.3 fl [facility] INSURANCE BILL MCH 24.4(L) 26.7 - 34.0 pg [facility] INSURANCE BILL MCHC 29.3(L) 30.8 - 35.9 gm/dL [facility] INSURANCE BILL RDW 21.6(H) 12.1 - 14.9 % [facility] INSURANCE BILL Platelet Count 327 153 - 416 x10E9/L [facility] INSURANCE BILL Comment:MPV FL BLOOD (SSM) 1 1.2 fl 9.4-12.9 Granulocytes % 63.3 44.0 - 73.0 % [facility] INSURANCE BILL Lymphocytes % 21.3 20.0 - 43.0 % [facility] INSURANCE BILL Monocytes % 11.6 5.0 - 13.0 % [facility] INSURANCE BILL Eosinophils % 2.6 0.0 - 6.0 % [facility] INSURANCE BILL Basophils % 0.6 0.0 - 2.0 % [facility] INSURANCE BILL Granulocytes Absolute 4.55 2.01 - 7.14 x10E9/L [facility] INSURANCE BILL Lymphocytes Absolute 1.53 1.07 - 3.94 x10E9/L [facility] INSURANCE BILL Monocytes Absolute 0.83 0.26 - 1.07 x10E9/L [facility] INSURANCE BILL Eosinophils Absolute 0.19 0 - 0.47 x10E9/L [facility] INSURANCE BILL Basophils Absolute 0.04 0 - 0.08 x10E9/L [facility] INSURANCE BILL Immature Granulocytes 0.6 0 - 1 % [facility] INSURANCE BILL Immature Granulocytes Absolute 0.04 0.00 - 0.06 x10E9/L [facility] INSURANCE BILL nRBC 0 /100 WBC [facility] INSURANCE BILL Blood BLOOD SPECIMEN / Unknown 11/06/2018 10:43 AM CDT 11/06/2018 Narrative Resulting Agency Comment Lab Testing performed at: [facility] [address] [facility] ?? 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, unspecified vessel or lesion type- Primary Heart murmur Undiagnosed cardiac murmurs CATY (obstructive sleep apnea) Obstructive sleep apnea (adult) (pediatric) TIA (transient ischemic attack) Unspecified transient cerebral ischemia Lymphatic edema Other lymphedema Partial seizure (HCC) Other convulsions Primary hypothyroidism Unspecified hypothyroidism Chronic atrial fibrillation (HCC) Atrial fibrillation Type 2 diabetes mellitus without complication, with long-term current use of insulin (HCC) Vitamin D deficiency Hyperparathyroidism (HCC) Anemia, unspecified type Screen for colon cancer Special screening for malignant neoplasms, colon documented in this encounter Care Teams Seafood Processor Relationship Specialty [place] [address] [place] [address] PCP - General Internal Medicine 03/31/18 05/30/22 Etienne Florez MD Orthopedic Surgery 12/09/14 [place] [address] [address] [place] [address] Oncology 09/15/17 [place] [address] [address] [place] [id number] Neurology 06/26/18 [place] [address] [facility] [address] [place] [address] Cardiovascular Disease 06/26/18 [place] [address] [place], [place] [id number] Pulmonary Disease 06/26/18 Yuliya Ibarra MD [address] [facility] [address] [place] [address] Endocrinology 06/26/18 Phuong Callejas DPM [address] [place] [address] Podiatry 06/26/18 Sy Barrientos MD [address] [place] [address] [place] [address] Ophthalmology 06/26/18 [place] [address] [place], [place] [phone] Pulmonary Disease 06/26/18 Rico Gasca MD [address] [place] [address] Urology 06/26/18 Elle Landaverde MD [address] [place] [address] Vascular Surgery 06/26/18 Kirk Truong MD [address] [facility] [address] [place] [address] Gastroenterology 06/26/18 [place] [address] [facility] [address] [place] [address] General Surgery 06/26/18 documented as of this encounter
--- OUTSIDE RECORDS SUMMARY | 2024-05-26 12:40 | XMS_ITS | Encounter Summary ---
Author Organization [facility] Address [address] [place] [address] Care Team Providers Care Manager Unix Name Role Phone Etienne Florez MD Unavailable Enrique Gonzalez MD Unavailable [phone] Theresa Camargo MD Primary Care Provider Nelson Ross MD Unavailable Laz Valencia MD Unavailable Russell Moran MD Unavailable Yuliya Ibarra MD Unavailable [phone] Phuong Callejas DPM Unavailable Sy Barrientos MD Unavailable Russell Moran MD Unavailable Rico Gasca MD Unavailable [phone] Elle Landaverde MD Unavailable Kirk Truong MD Unavailable [phone] Shira Love DO Unavailable [phone] Reason for Visit * Reason Onset Date Comments Follow-up 09/30/2018 Encounter Details Date Type Department Care Team (Late st Contact Info) Description 09/30/2018 Telephone [facility] Health Neurosciences [address] [facility] [address] [place] [address] [place] [address] [address] [place] [address] Follow-up Social History Tobacco Use Types Packs/Day [...] encounter Miscellaneous Notes * Telephone Encounter - Karina Scherer - 10/23/2018 1:42 PM CDT On 09/30/2018 Dr. Ross reviewed the updated message. * Telephone Encounter - Karina Scherer - 09/30/2018 11:04 AM CDT I called the patient and checked on her since she went to the ED yesterday. She went to [facility]. She states the CT Scan came back normal. She states she is doing better She states herlegs are still aching sore ,jerking and her pain level is 4/10. FYI documented in this encounter Plan of Treatment Not on file documented as of this encounter Goals Goal Patient Goal Type Associated Problems Recent Progress Patient-Stated? 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 8:09 AM FISH BIN TENDER) No Alisa Jaramillo HEMOGLOBIN A1C < 7.0 Result Component 5.4( 12:00 AM CDT) No Alisa Jaramillo documented as of this encounter Visit Diagnoses Not on filedocumented in this encounter Care Teams Manager Unix Relationship Specialty Start [place] [address] [facility] [address] [place], [place] [id number] PCP - General Internal Medicine 03/31/18 05/30/22 Etienne Florez MD Orthopedic Surgery 12/09/14 [place] [address] [facility] [address] [place] [address] Oncology 09/15/17 [place] [address] [facility] [address] [place] [address] Neurology 06/26/18 [place] [address] [facility] [address] [place] [address] Cardiovascular Disease 06/26/18 [place] [address] [id number] Pulmonary Disease 06/26/18 Yuliya Ibarra MD [address] [place] [address] Endocrinology 06/26/18 Phuong Callejas DPM [address] [place], [place] [id number] Podiatry 06/26/18 Sy Barrientos MD [address] [place] [address] Ophthalmology 06/26/18 [place] [address] [id number] Pulmonary Disease 06/26/18 Rico Gasca MD [address] [facility] [address] [place] [address] Urology 06/26/18 Elle Landaverde MD [address] [place] [address] Vascular Surgery 06/26/18 Kirk Truong MD [address] [place] [address] Gastroenterology 06/26/18 [place] [address] [facility] [address] [place] [address] General Surgery 06/26/18 documented as of this encounter
--- OUTSIDE RECORDS SUMMARY | 2024-05-26 12:40 | XMS_ITS | Encounter Summary ---
Author Organization [facility] Address [address] [facility] [place] [address] Care Team Providers Care Regulatory Compliance Director Name Role Phone Etienne Florez MD Unavailable Enrique Gonzalez MD Unavailable [phone] Theresa Camargo MD Primary Care Provider Nelson Ross MD Unavailable [phone] Laz Valencia MD Unavailable Russell Moran MD Unavailable Yuliya Ibarra MD Unavailable [phone] Phuong Callejas DPM Unavailable [phone] Sy Barrientos MD Unavailable Russell Moran MD Unavailable Rico Gasca MD Unavailable Elle Landaverde MD Unavailable Kirk Truong MD Unavailable Shira Love DO Unavailable [phone] Encounter Details Date Type Department Care Team (Late st Contact Info) Description 11/27/2018 Orders Only [facility] [address] [place] [address] Document, Scanned Social History Tobacco Use Types Packs/Day Years [...] < 140/90 Blood Pressure 127/52(2022 8:09 AM DRUM BUILDER) No Alisa Jaramillo HEMOGLOBIN A1C < 7.0 Result Component 5.4( 12:00 AM CDT) No Alisa Jaramillo documented as of this encounter Procedures Procedure Name Priority Date/Time Associated Diagnosis Comments DIABETES EYE EXAM Routine 11/23/2018 documented in this encounter Results * DIABETES EYE EXAM (11/23/2018) Scanned Document HEALTH MAINTENANCE documented in this encounter Visit Diagnoses Not on filedocumented in this encounter Care Teams Regulatory Compliance Director Relationship Specialty [place] [address] [address] PCP - General Internal Medicine 03/31/18 05/30/22 Etienne Florez MD Orthopedic Surgery 12/09/14 [place] [address] [phone] Oncology 09/15/17 [place] [address] [phone] Neurology 06/26/18 Laz [place] [id number] [place] [address] [address] [place] [address] Cardiovascular Disease 06/26/18 Russell Moran MD [address] [place] [address] Pulmonary Disease 06/26/18 Yuliya Ibarra MD [address] [facility] [address] [place] [phone] Endocrinology 06/26/18 Phuong Callejas DPM [address] [place], [place] [id number] Podiatry 06/26/18 Sy Barrientos MD [address] [place] [address] [place] [address] Ophthalmology 06/26/18 Russell Moran MD [address] [place] [address] Pulmonary Disease 06/26/18 Rico Gasca MD [address] [address] Urology 06/26/18 Elle Landaverde MD [address] [address] Vascular Surgery 06/26/18 Kirk Truong MD [address] [address] Gastroenterology 06/26/18 [place] [address] [facility] [address] [place] [address] General Surgery 06/26/18 documented as of this encounter
--- OUTSIDE RECORDS SUMMARY | 2024-05-26 12:40 | XMS_ITS | Encounter Summary ---
Author Organization [facility] Address [address] [facility] [place] [address] Care Team Providers Care Db2 Dba Name Role Phone Etienne Florez MD Unavailable Enrique Gonzalez MD Unavailable [phone] Theresa Camargo MD Primary Care Provider Nelson Ross MD Unavailable Laz Valencia MD Unavailable Russell Moran MD Unavailable [phone] Yuliya Ibarra MD Unavailable Phuong Callejas DPM Unavailable Sy Barrientos MD Unavailable [phone] Russell Moran MD Unavailable Rico Gasca MD Unavailable [phone] Elle Landaverde MD Unavailable [phone] Kirk Truong MD Unavailable Shira Love Unavailable [phone] Reason for Referral * Radiology Services (Urgent) - Closed Specialty Diagnoses / Procedures Referred By Contac t Referred To Contact Radiology Diagnoses Pneumonia of right lower lobe due to infectious organism Procedures CT CHEST W CONTRAST Brooke Haynes APRN-CNP [address] [facility] [address] [place] [address] [facility] [address] [place] [address] Referral ID Status Reason Start Date Expiration Date Visits Re quested Visits Authorized [id number] Closed 08/06/2018 02/02/2019 1 1 Reason for Visit * Radiology Services (Urgent) - Closed Specialty Diagnoses / Procedures Referred By Alejandrina t Referred To Contact Radiology Diagnoses Pneumonia of right lower lobe due to infectious organism Procedures CT CHEST W CONTRAST Brooke Haynes APRN-CNP [id number] [place] [address] [place] [address] [facility] [address] [place] [address] Referral ID Status Reason Start Date Expiration Date Visits Re quested Visits Authorized [id number] Closed 08/06/2018 02/02/2019 1 1 Encounter Details Date Type Department Care Team (Latest Contact Info) Description 08/07/2018 7:59 AM CDT - 08/07/2018 11:59 PM CDT Hospital Encounter [facility] Health Imaging Services - [place] Scan [id number] [place] [id number] Brooke Haynes APRN-CNP [address] [facility] [address] [place] [address] Discharge Disposition: Home or Self Care [...] TAKE 1 TABLET AT BEDTIME 90 tablet 06/16/2018 10/27/2018 Cyanocobalamin 1000 MCG Take by mouth once daily. 05/21/2022 doxycycline hyclate (VIBRAMYCIN) 100 MG capsule Take 1 capsule by mouth 2 times daily for 10 days 20 capsule 08/06/2018 08/16/2018 empagliflozin (JARDIANCE) 10 MG tablet Take 1 [...] and evening meal 60 capsule 03/04/2018 03/05/2019 lubiprostone (AMITIZA) 24 MCG capsuleIndications:Chr onic Idiopathic Constipation Take 1 capsule by mouth 2 times daily Reasons: Chronic Constipation of Unknown Cause 60 capsule 11 03/02/2018 08/18/2018 menthol-zinc oxide (CALMOSEPTINE) 0.44-20.6 % ointment Apply [...] mouth once daily 04/13/2019 potassium chloride ER (KLOR-CON 10) 10 MEQ tablet The patient should only Take 4 tabs with breakfast 360 tablet 07/16/2018 10/20/2018 psyllium (METAMUCIL) 58.6 % powderIndications:Cons tipation Take 1 packet by mouth as needed Reasons: Constipation 05/06/2019 rosuvastatin (CRESTOR) 10 MG tablet Take 1 tablet by mouth at bedtime 90 tablet 3 10/27/2017 10/20/2018 verapamil SR 24hr (VERELAN) 240 MG capsule Take 240 mg by mouth once daily 11/23/2019 documented as of this encounter Plan of Treatment Not on file documented as of this encounter Goals Goal Patient Goal Type Associated Problems Recent Progress Patient-Stated? 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 8:09 AM DEAN OF WOMEN) No Alisa Jaramillo HEMOGLOBIN A1C < 7.0 Result Component 5.4( 12:00 AM CDT) No Alisa Jaramillo documented as of this encounter Procedures Procedure Name Priority Date/Time Associated Diagnosis Comments CT CHEST W CONTRAST BISHOP 08/07/2018 8 :29 AM CDT Pneumonia of right lower lobe due to infectious organism CREATININE BLOOD - POINT OF CARE (IP) Routine 08/07/2018 8:18 AM CDT Pneumonia of right lower lobe due to infectious organism documented in this encounter Results * CT CHEST W [...] MD on 08/07/2018 at 10:[address] ORDERABLES * CREATININE BLOOD - POINT OF CARE (IP) (08/07/2018 8:18 AM CDT) Creatinine POCT 0.98 0.7 - 1.2 mg/dL [facility] POCT TESTING QC Verified Yes Yes [facility] POC T TESTING Blood BLOOD SPECIMEN / Unknown 08/07/2018 8:18 AM CDT [facility] - POINT OF CARE ORDERABLES [facility] POCT TESTING [address] [phone] documented in this encounter Visit Diagnoses Diagnosis Pneumonia of right lower lobe due to infectious organism documented in this encounter Administered Medications Inactive Administered Medications - up to 3 most recent administrations Medication Order MAR Action Action Date Dose Rate Site 0.9% NaCl injection 0-10 mL 0-10 mL, Intracatheter, ONCE PRN, Other, Contrast flush, 1 dose, Starting on Fri08/07/18 at 0759, Until Fri08/07/18 at 0830, For administration with contrast. $ Given 08/07/2018 8:30 AM CDT 10 mL 0.9% NaCl IV Flush Bag 0-100 mL, Intracatheter, ONCE PRN, Contrast flush, 1 dose, Starting on Fri08/07/18 at 0759, Until Fri08/07/18 at 0830, For administration with contrast $ Given 08/07/2018 8:30 AM CDT 50 mL iopamidol (ISOVUE 370) 76 % contrast Intravenous, CONTRAST ONCE, Starting on Fri08/07/18 at 0759, Until Fri08/08/18 at 0139 $ Given - Contrast 08/07/2018 8:30 AM CDT 80 mL documented in this encounter Care Teams Db2 Dba Relationship Specialty Start [place] [address] [facility] [address] [place], [place] [id number] PCP - General Internal Medicine 03/31/18 05/30/22 Etienne Florez MD Orthopedic Surgery 12/09/14 [place] [address] [facility] [address] [place] [phone] Oncology 09/15/17 [place] [address] [facility] [address] [place] [phone] Neurology 06/26/18 [place] [address] [facility] [address] [place] [phone] Cardiovascular Disease 06/26/18 [place] [address] [phone] Pulmonary Disease 06/26/18 Yuliya Ibarra MD [address] [place] [address] Endocrinology 06/26/18 Phuong Callejas DPM [address] [place] [address] Podiatry 06/26/18 Sy Barrientos MD [address] [place] [address] [place] [address] Ophthalmology 06/26/18 [place] [address] [address] Pulmonary Disease 06/26/18 Rico Gasca MD [address] [facility] [address] [place] [address] Urology 06/26/18 Elle Landaverde MD [address] [facility] [address] [place] [address] Vascular Surgery 06/26/18 Kirk Truong MD [address] [facility] [address] [place] [address] Gastroenterology 06/26/18 [place] [address] [address] [place] [phone] General Surgery 06/26/18 documented as of this encounter
--- OUTSIDE RECORDS SUMMARY | 2024-05-26 12:40 | XMS_ITS | Encounter Summary ---
Author Organization [facility] Address [address] [facility] [place] [address] Care Team Providers Care Power Shovel Operator Helper Name Role Phone Etienne Florez MD Unavailable Enrique Gonzalez MD Unavailable [phone] Theresa Camargo MD Primary Care Provider Nelson Ross MD Unavailable Laz Valencia MD Unavailable Russell Moran MD Unavailable Yuliya Ibarra MD Unavailable [phone] Phuong Callejas DPM Unavailable Sy Barrientos MD Unavailable Russell Moran MD Unavailable [phone] Rico Gasca MD Unavailable [phone] Elle Landaverde MD Unavailable Kirk Truong MD Unavailable Shira Love DO Unavailable [phone] Reason for Visit * Reason Onset Date Comments Question 09/21/2018 Encounter Details Date Type Department Care Team (Late st Contact Info) Description 09/21/[address] [facility] Health Neurosciences [address] [facility] [address] [place] [address] [place] [address] [facility] [address] [place] [address] Question Social History Tobacco Use [...] Telephone Encounter - Karina Scherer - 09/30/2018 11:13 AM CDT 09/28/[address] Ross. * Telephone Encounter - Karina Scherer - 09/24/2018 3:06 PM CDT I called the patient back to check up on her. She states her legs were hurting about 5:00 am and she took a pain pill. She states the rest of the day is fine. But then it starts hurting late in the afternoon and during the night. She states her pain level is 8/10. Update, * Telephone Encounter - Margarito Bills - 09/22/2018 1:50 PM CDT Images from the original note were not included. ?? Nelson Ross MD ??Karina Scherer 59 minutes ago (12:50 PM) ? Check in with her tomorrow and see how she is doing (Routing comment) * Telephone Encounter - Karina Scherer - 09/22/2018 11:18 AM CDT Patient called back I read to her Dr. Ross response.and she states it is her upper left leg, spasm, it started 5 days ago and her pain level is 9/10. I did inform her that you sent in Tramadol. Patient understood. * Telephone Encounter - Margarito Bills - 09/22/2018 9:04 AM CDT Left VM for pt to call back * Telephone Encounter - Nelson Ross MD - 09/21/2018 4:49 PM CDT I sent in Tramadol. Please find out more about the pain. What is hurting, how long etc * Telephone Encounter - Margarito Bills - 09/21/2018 4:01 PM CDT Pt called and stated she is having extreme pain in her left leg. She would like to know can a medication be sent to her pharmacy for pain. Please Advise documented in this encounter Plan of Treatment Not on file documented as of this encounter Goals Goal Patient Goal Type Associated Problems Recent Progress Patient-Stated? 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) No Alisa Jaramillo HEMOGLOBIN A1C < 7.0 Result Component 5.4( 12:00 AM CDT) No Alisa Jaramillo documented as of this encounter Visit Diagnoses Not on filedocumented in this encounter Care Teams Power Shovel Operator Helper Relationship Specialty Start [place] [address] [facility] [address] [place], [place] [phone] PCP - General Internal Medicine 03/31/18 05/30/22 Etienne Florez MD Orthopedic Surgery 12/09/14 [place] [address] [facility] [address] [place] [phone] Oncology 09/15/17 [place] [address] [facility] [address] [place] [phone] Neurology 06/26/18 [place] [address] [facility] [address] [place] [address] Cardiovascular Disease 06/26/18 [place] [address] [facility] [address] [place] [id number] Pulmonary Disease 06/26/18 Yuliya Ibarra MD [address] [facility] [address] [place] [phone] Endocrinology 06/26/18 Phuong Callejas DPM [address] [place] [address] Podiatry 06/26/18 Sy Barrientos MD [address] [place] [address] [place] [address] Ophthalmology 06/26/18 [place] [address] [phone] Pulmonary Disease 06/26/18 Rico Gasca MD [address] [facility] [address] [place] [address] Urology 06/26/18 Elle Landaverde MD [address] [place] [address] Vascular Surgery 06/26/18 Kirk Truong MD [address] [facility] [address] [place] [address] Gastroenterology 06/26/18 [place] [address] [place] [address] [place] [phone] General Surgery 06/26/18 documented as of this encounter
--- OUTSIDE RECORDS SUMMARY | 2024-05-26 12:40 | XMS_ITS | Encounter Summary ---
Author Organization [facility] Address [address] [place] [address] Care Team Providers Care Gas Plant Specialist Name Role Phone Etienne Florez MD Unavailable [phone] Enrique Gonzalez MD Unavailable [phone] Theresa Camargo MD Primary Care Provider [phone] Nelson Ross MD Unavailable Laz Valencia MD Unavailable Russell Moran MD Unavailable Yuliya Ibarra MD Unavailable [phone] Phuong Callejas DPM Unavailable [phone] Sy Barrientos MD Unavailable [phone] Russell Moran MD Unavailable Rico Gasca MD Unavailable Elle Landaverde MD Unavailable [phone] Kirk Truong MD Unavailable Shira Love DO Unavailable [phone] Reason for Visit * Reason Comments Follow-up left breast cancer Encounter Details Date Type Department Care Team (Travon st Contact Info) Description 10/28/2018 11:00 AM CDT Office Visit [facility] - Surgery [address] [facility], [address] [place] [address] Shira Love, [address] [facility] [address] [place] [address] Malignant neoplasm of left breast in female, estrogen receptor positive, unspecified site of breast (HCC) (Primary Dx) Social History Tobacco Use [...] - Inhaled Oxygen Concentration - - Weight 88.5 kg (195 lb) 10/28/2018 11:19 AM CDT Height 165.1 cm (5' 5 ) 10/28/2018 11:19 AM CDT Body Mass Index 32.45 10/28/2018 11:19 AM CDT documented in this encounter Functional [...] this encounter Patient Instructions * Patient Instructions* Harmeet Flores - 10/28/2018 11:24 AM CDT Patient's medications and allergies were reviewed with the patient today. Patient was instructed tocontact primary care physician or ordering provider with any questions regarding medications. documented in this encounter Progress Notes * KateShira, - 10/28/2018 11:19 AM CDT 10/28/2018 Perla Leon presents today for follow up for her cancer. 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 Patient had a left partial mastectomy as well as sentinel lymph node biopsy in August,. Her pathology was free of tumor at the margins and the lymph nodes were negative. She was seen by radiation oncology and decided not to forego adjuvant radiation therapy. She is seen Dr. Gonzalez for medical oncology and is on Arimidex 1 mg daily which she started on 09/17/2017. She presents today for her annual follow-up. I have also seen her in office for diastasis recti that she is managing medically. Over the past 6 months she has unfortunately had multiple falls. She stays getting very hard for her to get around and her for to help her. She has also had cataract surgery. She presents today with her she is in a wheelchair. She when she is not her wheelchair she is using a walkerat home. Past Medical History: Diagnosis Date ??? Asthma [...] ??? TIA (transient ischemic attack) 2000, 08/11/2008 Past Surgical History: Procedure Laterality Date ??? [...] LT ARM ??? THYROID NEEDLE BIOPSY Current Outpatient Prescriptions on File Prior to [...] facility-administered medications on file prior to visit. Family History Problem Relation Age of Onset ??? Cancer - Breast Mother ??? Coronary Artery Disease Father CHF ??? Coronary Artery Disease Brother CHF Social History Social History ??? Marital status: Spouse name: N/A ??? Number of children: 3 ??? 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 Smoking status: Never Smoker ??? Smokeless tobacco: Never Used ??? Alcohol use No ??? Drug use: No ??? Sexual activity: Not on file Other Topics Concern ??? Not on file Social History Narrative Allergies Allergen Reactions ??? Advair Diskus YEAS INFECTION ??? Aricept [Donepezil] Other I dont remember ??? Diltiazem Swelling ??? Metformin Diarrhea ??? Fluticasone Diarrhea ??? Piper Longum ??? Salmeterol Diarrhea ??? Sotalol Other Hair loss Review of Systems General: No fatigue or weight loss Eyes: No vision changes Neuro: No mental status changes Cardiovascular: No chest pain or palpitations Pulmonary: No shortness of breath or wheezing. GI: No diarrhea or constipation Breast: No pain nipple discharge or new masses Musculoskeletal: Joint muscle pain Skin: No rashes or texture changes Hematologic: Easy bruising Physical Exam General: alert, in no distress, obese, uses a walker Eyes: Pupils equal round reactive, non icterus Lymph: Cervical, supraclavicular, and axillary nodes normal. Heart: regular rate and rhythm Lungs: clear to auscultation, no wheezes or rales and unlabored breathing Abdomen: soft Extremities: normal strength, tone, and muscle mass Neuro: Grossly intact Skin: WNL. Breast: Right: normal appearance, no masses or tenderness Left: normal appearance, no masses or tenderness incision well healed. Imaging Review Mammogram 09/14/18 STUDY TEXT DIGITAL BILATERAL DIAGNOSTIC MAMMOGRAMS WITH CAD AND 3-D TOMOSYNTHESIS ?? DATE: 09/14/2018, 10:05 AM ?? PREVIOUS EXAM DATE: 08/25/2017, 07/30/2017, 07/02/2017 and prior. ?? INDICATION: Screening. ?? TECHNIQUE: Bilateral craniocaudad (CC) and mediolateral oblique (MLO) views. Images were interpreted with the aid of CAD. 3-D tomosynthesis images were performed. ?? TECHNOLOGIST: Ange Zamora RT (R)(M) ?? TISSUE DENSITY: Scattered fibroglandular elements. ?? FINDINGS: Posttreatment changes are noted in the left breast with lumpectomy clips. Scar marker is in place. No discrete new finding is noted. Right upper outer and axillary lymph nodes are unchanged. ?? ASSESSMENT: (BI-RADS 2) Benign finding. ?? RECOMMENDATIONS: Follow-up one year. Mammogram 07/30/2017 A small spiculated distortion persists in the left breast at 1 to 2 o'clock 5 cm from the nipple. Directed ultrasound was performed and reveals a correlate. The findings are concerning and biopsy would be warranted. 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 The patient is also on Plavix. Clinical decision making may warrant an alternative pathway for this patient. No axillary adenopathy is appreciated.?? ASSESSMENT: (BI-RADS category 4C) Suspicious abnormality.?? RECOMMENDATIONS: Surgical consultation. Directed grayscale ultrasound performed and reveals a hypoechoic density at the site of the spiculated distortion mammographically at 1:00 to 2:00, 5 cm from the nipple, measuring 8 x 6 x 8 mm. Survey images of the axilla do not reveal abnormal adenopathy. Findings are suspicious and tissue diagnosis would be warranted. Pathology: Left breast mass, lumpectomy: -- ??Infiltrating ductal carcinoma, NOS, grade 2, 1.1 x 0.8 x 0.7 cm -- ??Ductal carcinoma in situ, solid, grade 2 -- ??DCIS constitutes about 10% of tumor burden -- ??No vascular or neural invasion seen -- ??Microcalcifications present associated with non-neoplastic tissue -- ??Proliferative and non-proliferative fibrocystic changes -- ??All surgical margins free of tumor (closest margin, posterior at 4 mm) -- ??Provisional TNM stage T1c, NX, MX ?? ER: ??Positive ??(96.6 ?%, intensity: strong) MD: ??Positive (22.5 ?%, intensity: moderate) Her-2-osmin: ?Not over-expressed (score 1+) Ki-67: ?Borderline proliferation (19.4 ?%) ?? Left axillary sentinel lymph node, excision: -- ??Lymph node # 1: No metastatic tumor detected in one lymph node (0/1) -- ??Lymph node # 2: No metastatic tumor detected in one lymph node (0/1) ?? Treatment Review S/p left excisional biopsy S/p left sentinel lymph node biopsy Arimidex Assessment Left Breast Cancer Stage 1A, ER +/MD +/Her 2 - I discussed her physical exam findings and reviewed her mammogram with her. As far as her cancer she is doing well. There is no changes on exam and no evidence of disease. She is having no issues with her Arimidex and is following up with Medical Oncology. She has decided to forego adjuvant radiation therapy. Encouraged her to do monthly self-breast exams. She wishes to see me yearly and she will be due for a diagnostic mammogram in August, and I will see her the same time. documented in this encounter Plan of Treatment Not on file documented as of this encounter Goals Goal Patient Goal Type Associated Problems Recent Progress Patient-Stated? 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) No Alisa Jaramillo HEMOGLOBIN A1C < 7.0 Result Component 5.4( 12:00 AM CDT) No Alisa Jaramillo documented as of this encounter Visit Diagnoses Diagnosis Malignant neoplasm of left breast in female, estrogen receptor positive, unspecified site of breast (HCC)- Primary documented in this encounter Care Teams Gas Plant Specialist Relationship Specialty Start [place] [address] [address] PCP - General Internal Medicine 03/31/18 05/30/22 Etienne Florez MD Orthopedic Surgery 12/09/14 [place] [address] [facility] [address] [facility] [address] [place] [address] Oncology 09/15/17 [place] [address] [phone] Neurology 06/26/18 [place] [address] [facility] [address] [place] [address] Cardiovascular Disease 06/26/18 Russell Moran MD [address] [place] [address] Pulmonary Disease 06/26/18 Yuliya Ibarra MD [address] [facility] [address] [place] [phone] Endocrinology 06/26/18 Phuong Callejas DPM [address] [place] [address] Podiatry 06/26/18 Sy Barrientos MD [address] [place] [address] [place] [address] Ophthalmology 06/26/18 [place] [address] [address] Pulmonary Disease 06/26/18 Rico Gasca MD [address] [facility] [address] [place] [address] Urology 06/26/18 lEle Landaverde MD [address] [address] Vascular Surgery 06/26/18 Kirk Truong MD [address] [address] Gastroenterology 06/26/18 [place] [address] [address] [place] [address] General Surgery 06/26/18 documented as of this encounter
--- OUTSIDE RECORDS SUMMARY | 2024-05-26 12:40 | XMS_ITS | Encounter Summary ---
Author Organization [facility] Address [address] [facility] [place] [address] Care Team Providers Care Hydraulic Jack Adjuster Name Role Phone Etienne Florez MD Unavailable [phone] Enrique Gonzalez MD Unavailable [phone] Theresa Camargo MD Primary Care Provider Nelson Ross MD Unavailable [phone] Laz Valencia MD Unavailable Russell Moran MD Unavailable Yuliya Ibarra MD Unavailable [phone] Phuong Callejas DPM Unavailable Sy Barrientos MD Unavailable Russell Moran MD Unavailable [phone] Rico Gasca MD Unavailable Elle Landaverde MD Unavailable Kirk Truong MD Unavailable Shira Love DO Unavailable [phone] Reason for Visit * Reason Onset Date Comments Question 09/29/2018 Encounter Details Date Type Department Care Team (Late st Contact Info) Description 09/29/2018 Telephone [facility] [address] [facility] [address] [place] [address] [place] [address] [address] [place] [address] Question Social History Tobacco Use [...] * Telephone Encounter - Karina Scherer - 09/29/2018 2:43 PM CDT Daughter called and I read to her mothers message and Dr. Ross response. I called and left a detailed message on patient's cell phone. I tried the home number but the line was busy. I called the patient and was able to get through. I informed the patient of Dr. Ross response and patient understood. * Telephone Encounter - Nelson Ross MD - 09/29/2018 1:31 PM CDT Need go to ER * Telephone Encounter - Karina Scherer - 09/29/2018 10:58 AM CDT Patient states she is still having problems with her legs not working and the her leg is weaker on the left. Now her elbows are not working. Patient states she fell 3 days ago and hit the back of herhead. She states the pain on the back of her head is getting worse. She states when she turns her head it effects the head, neck and shoulder and the pain level is a 10/10. What should she do about the pain on the back of the head and it is getting worse. Please advise. documented in this encounter Plan of Treatment Not on file documented as of this encounter Goals Goal Patient Goal Type Associated Problems Recent Progress Patient-Stated? 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) No Alisa Jaramillo HEMOGLOBIN A1C < 7.0 Result Component 5.4( 12:00 AM CDT) No Alisa Jaramillo documented as of this encounter Visit Diagnoses Not on filedocumented in this encounter Care Teams Hydraulic Jack Adjuster Relationship Specialty [place] [address] [address] [place], [place] [id number] PCP - General Internal Medicine 03/31/18 05/30/22 Etienne Florez MD Orthopedic Surgery 12/09/14 [place] [address] [address] [facility] [address] [place] [phone] Oncology 09/15/17 [place] [address] [facility] [address] [place] [address] Neurology 06/26/18 [place] [address] [facility] [address] [place] [address] Cardiovascular Disease 06/26/18 [place] [address] [place] [id number] Pulmonary Disease 06/26/18 Yuliya Ibarra MD [address] [facility] [address] [place] [phone] Endocrinology 06/26/18 Phuong Callejas DPM [address] [place], [place] [phone] Podiatry 06/26/18 Sy Barrientso MD [address] [place] [address] [place] [address] Ophthalmology 06/26/18 [place] [address] [address] Pulmonary Disease 06/26/18 Rico Gasca MD [address] [facility] [address] [place] [address] Urology 06/26/18 Elle Landaverde MD [address] [facility] [address] [place] [address] Vascular Surgery 06/26/18 Kirk Truong MD [address] [facility] [address] [place] [address] Gastroenterology 06/26/18 [place] [address] [address] [place] [address] General Surgery 06/26/18 documented as of this encounter
--- OUTSIDE RECORDS SUMMARY | 2024-05-26 12:40 | XMS_ITS | Encounter Summary ---
Author Organization [facility] Address [address] [facility] [address] Care Team Providers Care Drafter Refrigeration Name Role Phone Etienne Florez MD Unavailable Enrique Gonzalez MD Unavailable [phone] Theresa Camargo MD Primary Care Provider Nelson Ross MD Unavailable Laz Valencia MD Unavailable Russell Moran MD Unavailable [phone] Yuliya Ibarra MD Unavailable Phuong Callejas DPM Unavailable [phone] Sy Barrientos MD Unavailable [phone] Russell Moran MD Unavailable [phone] Rico Gasca MD Unavailable Elle Landaverde MD Unavailable Kirk Truong MD Unavailable Shira Love DO Unavailable [phone] Reason for Visit * Reason Onset Date Comments Appointment 07/24/2018 Encounter Details Date Type Department Care Team (Late st Contact Info) Description 07/24/2018 Telephone [facility] Family Medicine [address] [facility] [address] [place] [address] [place] [address] [facility] [address] [place] [address] Appointment Social History Tobacco Use [...] * Telephone Encounter - Breezy Townsend - 07/24/2018 9:38 AM CST Appt scheduled. IFIED ADAPTIVE PHYSICAL EDUCATOR * Telephone Encounter - Sahra Avalos - 07/24/2018 9:14 AM CST Who is calling? self If other than self is caller listed on the HIPAA? yes If caller is anyone other than listed above, where are they calling from? N/a What is the reason for call? Requesting an appointment for follow up on pneumonia, stating she was told to follow up in 2 weeks. No opening available please advise Expected Response from the Clinic? ( ex. Call back, etc..) call back IFIED ADAPTIVE PHYSICAL EDUCATOR documented in this encounter Plan of Treatment Not on file documented as of this encounter Goals Goal Patient Goal Type Associated Problems Recent Progress Patient-Stated? 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 8:09 AM CERTIFIED ADAPTIVE PHYSICAL EDUCATOR) No Alisa Jaramillo HEMOGLOBIN A1C < 7.0 Result Component 5.4( 12:00 AM CDT) No Alisa Jaramillo documented as of this encounter Visit Diagnoses Not on filedocumented in this encounter Care Teams Drafter Refrigeration Relationship Specialty Start [place] [address] [facility] [address] [place], [place] [id number] PCP - General Internal Medicine 03/31/18 05/30/22 Etienne Florez MD Orthopedic Surgery 12/09/14 [place] [address] [facility] [address] [place] [phone] Oncology 09/15/17 [place] [address] [facility] [address] [place] [address] Neurology 06/26/18 [place] [address] [facility] [address] [place] [address] Cardiovascular Disease 06/26/18 [place] [address] [address] Pulmonary Disease 06/26/18 Yuliya Ibarra MD [address] [place] [phone] Endocrinology 06/26/18 Phuong Callejas DPM [address] [place], [place] [phone] Podiatry 06/26/18 Sy Barrientos MD [address] [place] [address] Ophthalmology 06/26/18 [place] [address] [phone] Pulmonary Disease 06/26/18 Rico Gasca MD [address] [facility] [address] [place] [address] Urology 06/26/18 Elle Landaverde MD [address] [facility] [address] [place] [address] Vascular Surgery 06/26/18 Kirk Truong MD [address] [facility] [facility] [address] [place] [address] Gastroenterology 06/26/18 [place] [address] [address] [facility] [address] [place] [address] General Surgery 06/26/18 documented as of this encounter
--- OUTSIDE RECORDS SUMMARY | 2024-05-26 12:40 | XMS_ITS | Encounter Summary ---
Author Organization [facility] Address [address] [place] [address] Care Team Providers Care Bilingual Teacher Aide Name Role Phone Etienne Florez MD Unavailable Enrique Gonzalez MD Unavailable [phone] Theresa Camargo MD Primary Care Provider Nelson Ross MD Unavailable Laz Valencia MD Unavailable Russell Moran MD Unavailable [phone] Yuliya Ibarra MD Unavailable Phuong Callejas DPM Unavailable Sy Barrientos MD Unavailable Russell Moran MD Unavailable Rico Gasca MD Unavailable Elle Landaverde MD Unavailable [phone] Kirk Truong MD Unavailable Shira Love DO Unavailable [phone] Reason for Visit * Reason Comments Refill Request Encounter Details Date Type Department Care Team (Late st Contact Info) Description 10/20/2018 Refill [facility] - Family Medicine [address] [facility] [address] [place] [address] [place] [address] [facility] [address] [place] [address] Refill Request Social History Tobacco [...] * Telephone Encounter - Manasa Cary - 10/20/2018 2:53 PM CDT Perla Leon Requested Prescriptions Pending Prescriptions Disp Refills ??? potassium chloride ER (KLOR-CON) 10 MEQ tablet [Pharmacy Med Name: POT CHLOR ER (WAX) TABS 10MEQ] 360 tablet 0 Sig: TAKE 4 TABLETS WITH BREAKFAST Allergies Allergen Reactions ??? Advair Diskus YEAS INFECTION ??? Aricept [Donepezil] Other I dont remember ??? Diltiazem Swelling ??? Metformin Diarrhea ??? Fluticasone Diarrhea ??? Piper Longum ??? Salmeterol Diarrhea ??? Sotalol Other Hair loss Last refill- 07/16/18 Last OV-10/06/18 Future OV-11/06/18 documented in this encounter Plan of Treatment Not on file documented as of this encounter Goals Goal Patient Goal Type Associated Problems Recent Progress Patient-Stated? 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 8:09 AM DIVISION OPERATIONS SPECIALIST) No Alisa Jaramillo HEMOGLOBIN A1C < 7.0 Result Component 5.4( 12:00 AM CDT) No Alisa Jaramillo documented as of this encounter Visit Diagnoses Not on filedocumented in this encounter Care Teams Bilingual Teacher Aide Relationship Specialty Start [place] [address] [facility] [address] [place], [place] [phone] PCP - General Internal Medicine 03/31/18 05/30/22 Etienne Florez MD Orthopedic Surgery 12/09/14 [place] [address] [facility] [address] [place] [address] Oncology 09/15/17 [place] [address] [facility] [address] [place] [address] Neurology 06/26/18 [place] [address] [facility] [address] [place] [phone] Cardiovascular Disease 06/26/18 [place] [address] [address] Pulmonary Disease 06/26/18 Yuliya Ibarra MD [address] [place] [address] Endocrinology 06/26/18 Phuong Callejas DPM [address] [place], [place] [address] Podiatry 06/26/18 Sy Barrientos MD [address] [place] [address] [place] [address] Ophthalmology 06/26/18 [place] [address] [id number] Pulmonary Disease 06/26/18 Rico Gasca MD [address] [facility] [address] [place] [address] Urology 06/26/18 Elle Landaverde MD [address] [place] [address] Vascular Surgery 06/26/18 Kirk Truong MD [address] [facility] [address] [place] [address] Gastroenterology 06/26/18 [place] [address] [place] [address] [place] [address] General Surgery 06/26/18 documented as of this encounter
--- OUTSIDE RECORDS SUMMARY | 2024-05-26 12:40 | XMS_ITS | Encounter Summary ---
Author Organization [facility] Address [address] [place] [address] Care Team Providers Care Admissions Nurse Name Role Phone Etienne Florez MD Unavailable [phone] Enrique Gonzalez MD Unavailable [phone] Theresa Camargo MD Primary Care Provider Nelson Ross MD Unavailable [phone] Laz Valencia MD Unavailable Russell Moran MD Unavailable [phone] Yuliya Ibarra MD Unavailable [phone] Phuong Callejas DPM Unavailable [phone] Sy Barrientos MD Unavailable [phone] Russell Moran MD Unavailable Rico Gasca MD Unavailable [phone] Elle Landaverde MD Unavailable [phone] Kirk Truong MD Unavailable Shira Love DO Unavailable [phone] Reason for Referral * Radiology Services (Routine) - Closed Specialty Diagnoses / Procedures Referred By Contac t Referred To Contact Mammography Diagnoses Malignant neoplasm of left female breast, unspecified estrogen receptor status, unspecified site of breast (HCC) Procedures [place] [address] [place] [address] [facility] [place] [id number] [address] Referral ID Status Reason Start Date Expiration Date Visits Re quested Visits Authorized [id number] Closed 04/02/2018 09/29/2018 1 1 Reason for Visit * Radiology Services (Routine) - Closed Specialty Diagnoses / Procedures Referred By Contac t Referred To Contact Mammography Diagnoses Malignant neoplasm of left female breast, unspecified estrogen receptor status, unspecified site of breast (HCC) Procedures [place] [address] [place] [phone] [facility] [address] [address] Referral ID Status Reason Start Date Expiration Date Visits Re quested Visits Authorized [id number] Closed 04/02/2018 09/29/2018 1 1 Encounter Details Date Type Department Care Team (Latest Contact Info) Description 09/14/2018 10:00 AM CDT - 09/14/2018 10:05 AM CDT Hospital Encounter [facility] Breast Care [address] [place] [address] [place] [address] [address] [place] [address] Discharge Disposition: Home or Self [...] < 140/90 Blood Pressure 127/52(2022 8:09 AM VICE PRESIDENT RISK MANAGEMENT) No Alisa Jaramillo HEMOGLOBIN A1C < 7.0 Result Component 5.4( 12:00 AM CDT) No Alisa Jaramillo documented as of this encounter Procedures Procedure Name Priority Date/Time Associated Diagnosis Comments MAMMO BILAT DIAGNOSTIC Routine 09/14/2018 10:42 AM CDT Malignant neoplasm of left female breast, unspecified estrogen receptor status, unspecified site of breast (HCC) documented in this encounter Results * MAMMO BILAT DIAGNOSTIC (09/14/2018 10:42 AM CDT) Anatomical Region Laterality Modality Breast Bilateral Mammography 09/14/2018 10:4 5 AM CDT Narrative 09/14/2018 11:22 AM CDT DIGITAL BILATERAL DIAGNOSTIC MAMMOGRAMS WITH CAD AND 3-D TOMOSYNTHESIS DATE: 09/14/2018, 10:05 AM PREVIOUS EXAM DATE: 08/25/2017, 07/30/2017, 07/02/2017 and prior. INDICATION: Screening. TECHNIQUE: Bilateral craniocaudad (CC) and mediolateral oblique (MLO) views. Images were interpreted with the aid of CAD. 3-D tomosynthesis images were performed. TECHNOLOGIST: Ange Zamora RT (R)(M) TISSUE DENSITY: Scattered fibroglandular elements. FINDINGS: Posttreatment changes are noted in the left breast with lumpectomy clips. Scar marker is in place. No discrete new finding is noted. Right upper outer and axillary lymph nodes are unchanged. ASSESSMENT: (BI-RADS 2) Benign finding. RECOMMENDATIONS: Follow-up one year. The above findings should be correlated with physical examination. A relatively nonspecific study should not preclude additional evaluation if suspicious findings are present clinically. An [employer]. [facility] utilize Phase [employer] as a reminder system to notify patients of their next recommended mammograms. Edited by Angela Rodgers on 09/14/2018 11:00 AM Reading Radiologist: Dianna Simmons MD on 09/14/2018 at 11:22 AM Shira Love MAMMO ORDERABLES documented in this encounter Visit Diagnoses Diagnosis Malignant neoplasm of left female breast, unspecified estrogen receptor status, unspecified site of breast (HCC) documented in this encounter Care Teams Admissions Nurse Relationship Specialty [place] [address] [facility] [address] [place], [place] [address] PCP - General Internal Medicine 03/31/18 05/30/22 Etienne Florez MD Orthopedic Surgery 12/09/14 [place] [address] [facility] [address] [place] [address] Oncology 09/15/17 [place] [address] [facility] [address] [place] [address] Neurology 06/26/18 [place] [address] [facility] [address] [place] [address] Cardiovascular Disease 06/26/18 [place] [address] [id number] Pulmonary Disease 06/26/18 Yuliya Ibarra MD [address] [place] [address] Endocrinology 06/26/18 Phuong Callejas DPM [address] [place], [place] [address] Podiatry 06/26/18 Sy Barrientos MD [address] [place] [address] Ophthalmology 06/26/18 [place] [address] [id number] Pulmonary Disease 06/26/18 Rico Gasca MD [address] [facility] [address] [place] [address] Urology 06/26/18 Elle Landaverde MD [address] [facility] [address] [place] [address] Vascular Surgery 06/26/18 Kirk Truong MD [address] [facility] [address] [place] [address] Gastroenterology 06/26/18 [place] [address] [place] [address] [place] [phone] General Surgery 06/26/18 documented as of this encounter
--- OUTSIDE RECORDS SUMMARY | 2024-05-26 12:40 | XMS_ITS | Encounter Summary ---
Author Organization [facility] Address [address] [facility] [place] [address] Care Team Providers Care Smoke Control Supervisor Name Role Phone Etienne Florez MD Unavailable Enrique Gonzalez MD Unavailable [phone] Theresa Camargo MD Primary Care Provider Nelson Ross MD Unavailable [phone] Laz Valencia MD Unavailable Russell Moran MD Unavailable [phone] Yuliya Ibarra MD Unavailable Phuong Callejas DPM Unavailable [phone] Sy Barrientos MD Unavailable [phone] Russell Moran MD Unavailable Rico Gasca MD Unavailable [phone] Elle Landaverde MD Unavailable [phone] Kirk Truong MD Unavailable Shira Love Unavailable [phone] Encounter Details Date Type Department Care Team (Latest Contact Info) Description 08/06/2018 11:30 AM CDT - 08/06/2018 11:59 PM CDT Hospital Encounter [facility] Health Imaging Services - Radiology [address] [place], [place] [id number] Brooke Haynes, CAR DUMPER OPERATOR-DRIVER'S EDUCATION INSTRUCTOR [address] [facility] [address] [place] [address] Discharge Disposition: Home or Self Care Social [...] < 140/90 Blood Pressure 127/52(2022 8:09 AM COUNTER SUPPLY WORKER) No Alisa Jaramillo HEMOGLOBIN A1C < 7.0 Result Component 5.4( 12:00 AM CDT) No Alisa Jaramillo documented as of this encounter Procedures Procedure Name Priority Date/Time Associated Diagnosis Comments XR CHEST 2VW Routine 08/06/2018 11:44 AM CDT Pneumonia of right lower lobe due to infectious organism documented in this encounter Results * XR CHEST 2VW (08/06/2018 11:44 AM CDT) Anatomical Region Laterality Modality Chest Radiographic Mireya ging 08/06/2018 12:0 2 PM CDT Impressions 08/06/2018 12:03 PM CDT Persistent right base opacity adjacent to the heart border. Reading Radiologist: Dianna Simmons MD on 08/06/2018 at 12:03 PM Narrative 08/06/2018 12:03 PM CDT PA AND LATERAL CHEST INDICATION: Pneumonia, cough FINDINGS: There is persistent right base opacity is slightly improved since the prior study probably right middle lobe adjacent to the heart border. Aorta is calcified. Surgical clips are seen in the left breast. Procedure Note Dianna Simmons MD - 08/06/2018 PA AND LATERAL CHEST INDICATION: Pneumonia, cough FINDINGS: There is persistent right base opacity is slightly improved since the prior study probably right middle lobe adjacent to the heart border. Aorta is calcified. Surgical clips are seen in the left breast. IMPRESSION Persistent right base opacity adjacent to the heart border. Reading Radiologist: Dianna Simmons MD on 08/06/2018 at 12:03 PM Brooke Ivy CAR DUMPER OPERATOR-DRIVER'S EDUCATION INSTRUCTOR DIAGNOSTIC IMAG ING ORDERABLES documented in this encounter Visit Diagnoses Diagnosis Pneumonia of right lower lobe due to infectious organism documented in this encounter Care Teams Smoke Control Supervisor Relationship Specialty [place] [address] [facility] [address] [place] [address] PCP - General Internal Medicine 03/31/18 05/30/22 Etienne Florez MD Orthopedic Surgery 12/09/14 [place] [address] [facility] [address] [place] [address] Oncology 09/15/17 [place] [address] [facility] [address] [place] [address] Neurology 06/26/18 [place] [address] [facility] [address] [place] [address] Cardiovascular Disease 06/26/18 [place] [address] [place] [address] [place], [place] [phone] Pulmonary Disease 06/26/18 Yuliya Ibarra MD [address] [facility] [address] [place] [phone] Endocrinology 06/26/18 Phuong Callejas DPM [address] [place] [id number] Podiatry 06/26/18 Sy Barrientos MD [address] [place] [address] [place] [address] Ophthalmology 06/26/18 [place] [address] [place] [id number] Pulmonary Disease 06/26/18 Rico Gasca MD [address] [place] [address] Urology 06/26/18 Elle Landaverde MD [address] [place] [address] Vascular Surgery 06/26/18 Kirk Truong MD [address] [facility] [address] [place] [address] Gastroenterology 06/26/18 [place] [address] [facility] [address] [place] [address] General Surgery 06/26/18 documented as of this encounter
--- OUTSIDE RECORDS SUMMARY | 2024-05-26 12:40 | XMS_ITS | Encounter Summary ---
Author Organization [facility] Address [address] [facility] [place] [address] Care Team Providers Care It Service Technician Name Role Phone Etienne Florez MD Unavailable Enrique Gonzalez MD Unavailable [phone] Theresa Camargo MD Primary Care Provider Nelson Ross MD Unavailable Laz Valencia MD Unavailable Russell Moran MD Unavailable Yuliya Ibarra MD Unavailable Phuong Callejas DPM Unavailable [phone] Sy Barrientos MD Unavailable Russell Moran MD Unavailable Rico Gasca MD Unavailable Elle Landaverde MD Unavailable [phone] Kirk Truong MD Unavailable Shira Love DO Unavailable [phone] Reason for Visit * Reason Onset Date Comments Scheduling 01/08/2019 Encounter Details Date Type Department Care Team (Late st Contact Info) Description 01/08/2019 Telephone [facility] Medical [facility] [address] [facility] [place] [address] [place] [address] [place] [address] [facility] [address] [place] [address] Scheduling Social History Tobacco Use Types Packs/Day Years [...] encounter Miscellaneous Notes * Telephone Encounter - Nadja Wiggins RN - 01/08/2019 11:13 AM CDT Scheduled colon. Mailed instructions. Holding asa and plavix 5 days. * Telephone Encounter - Nadja Wiggins RN - 01/08/2019 10:39 AM CDT -Left message to call. ---- Message from Kirk Truong MD sent at 01/07/2019 3:19 PM CDT ----- I would recommend she proceed w/ colonoscopy given her positive cologuard, mild anemia and hx polyps. Last colon 7 years prior Can offer patient OV to discuss or ok to proceed directly to colonoscopy if patient does not have questions. I will have my office contact her to arrange. Thanks Kirk ----- Message ----- From: Theresa Camargo MD Sent: 01/07/2019 8:25 AM CDT To: Kirk Truong MD, Jina Haskins Her cologuard test is positive. Looks like she has seen GI Dr Truong in the past and I will haveher see him to discuss this. documented in this encounter Plan of Treatment Not on file documented as of this encounter Goals Goal Patient Goal Type Associated Problems Recent Progress Patient-Stated? 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 8:09 AM CIGARETTE MAKER) No Alisa Jaramillo HEMOGLOBIN A1C < 7.0 Result Component 5.4( 12:00 AM CDT) No Alisa Jaramillo documented as of this encounter Visit Diagnoses Not on filedocumented in this encounter Care Teams It Service Technician Relationship Specialty Start [place] [address] [facility] [employer] [address] [place] [address] PCP - General Internal Medicine 03/31/18 05/30/22 Etienne Florez MD Orthopedic Surgery 12/09/14 [place] [address] [facility] [address] [place] [address] Oncology 09/15/17 [place] [address] [facility] [address] [place] [address] Neurology 06/26/18 [place] [address] [facility] [address] [place] [address] Cardiovascular Disease 06/26/18 [place] [address] [place] [address] [place], [place] [phone] Pulmonary Disease 06/26/18 Yuliya Ibarra MD [address] [place] [address] Endocrinology 06/26/18 Phuong Callejas DPM [address] [place], [place] [address] Podiatry 06/26/18 Sy Barrientos MD [address] [place] [address] [place] [address] Ophthalmology 06/26/18 [place] [address] [id number] Pulmonary Disease 06/26/18 Rico Gasca MD [address] [place] [address] Urology 06/26/18 Elle Landaverde MD [address] [place] [address] Vascular Surgery 06/26/18 Kirk Trunog MD [address] [place] [address] Gastroenterology 06/26/18 [place] [address] [place] [place] [phone] General Surgery 06/26/18 documented as of this encounter
--- OUTSIDE RECORDS SUMMARY | 2024-05-26 12:40 | XMS_ITS | Encounter Summary ---
Author Organization [facility] Address [address] [facility] [place] [address] Care Team Providers Care Equal Opportunity Officer Name Role Phone Etienne Florez MD Unavailable Enrique Gonzalez MD Unavailable [phone] Theresa Camargo MD Primary Care Provider Nelson Ross MD Unavailable [phone] Laz Valencia MD Unavailable Russell Moran MD Unavailable [phone] Yuliya Ibarra MD Unavailable Phuong Callejas DPM Unavailable [phone] Sy Barrientos MD Unavailable [phone] Russell Moran MD Unavailable Rico Gasca MD Unavailable Elle Landaverde MD Unavailable Kirk Truong MD Unavailable Shira Love DO Unavailable [phone] Encounter Details Date Type Department Care Team (Latest Contact Info) Description 08/21/2018 7:43 AM CDT - 08/21/2018 10:14 AM CDT Hospital Encounter [facility] [address] [place], [place] [id number] [place] [address] [facility] [address] [place] [address] Discharge Disposition: Home or Self Care Social [...] < 140/90 Blood Pressure 127/52(2022 8:09 AM SNOWBOARDING INSTRUCTOR) No Alisa Jaramillo HEMOGLOBIN A1C < 7.0 Result Component 5.4( 12:00 AM CDT) No Alisa Jaramillo documented as of this encounter Visit Diagnoses Not on filedocumented in this encounter Care Teams Equal Opportunity Officer Relationship Specialty Start [place] [address] [address] PCP - General Internal Medicine 03/31/18 05/30/22 Etienne Florez MD Orthopedic Surgery 12/09/14 [place] [address] [phone] Oncology 09/15/17 [place] [address] [phone] Neurology 06/26/18 [place] [address] [facility] [facility] [address] [place] [address] Cardiovascular Disease 06/26/18 Russell Moran MD [address] [place] [address] Pulmonary Disease 06/26/18 Yuliya Ibarra MD [address] [facility] [address] [place] [phone] Endocrinology 06/26/18 Phuong Callejas DPM [address] [place] [address] Podiatry 06/26/18 Sy Barrientos MD [address] [place] [address] [place] [address] Ophthalmology 06/26/18 [place] [address] [address] Pulmonary Disease 06/26/18 Rico Gasca MD [address] [facility] [address] [place] [address] Urology 06/26/18 Elle Landaverde MD [address] [facility] [address] [place] [address] Vascular Surgery 06/26/18 Kirk Truong MD [address] [facility] [address] [place] [address] Gastroenterology 06/26/18 [place] [address] [address] [place] [address] General Surgery 06/26/18 documented as of this encounter
--- OUTSIDE RECORDS SUMMARY | 2024-05-26 12:40 | XMS_ITS | Encounter Summary ---
Author Organization [facility] Address [address] [facility] [place] [address] Care Team Providers Care Legal File Clerk Name Role Phone Etienne Florez MD Unavailable Enrique Gonzalez MD Unavailable [phone] Theresa Camargo MD Primary Care Provider Nelson Ross MD Unavailable [phone] Laz Valencia MD Unavailable Russell Moran MD Unavailable [phone] Yuliya Ibarra MD Unavailable [phone] Phuong Callejas DPM Unavailable Sy Barrientos MD Unavailable Russell Moran MD Unavailable Rico Gasca MD Unavailable [phone] Elle Landaverde MD Unavailable Kirk Truong MD Unavailable Shira Love DO Unavailable [phone] Reason for Visit * Reason Onset Date Comments MEDICATION REFILL 07/16/2018 Encounter Details Date Type Department Care Team (Late st Contact Info) Description 07/16/2018 Refill [facility] Family Medicine [address] [facility] [address] [place] [address] [place] [address] [facility] [address] [place] [address] MEDICATION REFILL Social History Tobacco [...] encounter Miscellaneous Notes * Telephone Encounter - Gwen Narvaez - 07/16/2018 1:10 PM CST Perla Leon is in need of Her Requested Prescriptions Pending Prescriptions Disp Refills ??? potassium chloride ER (KLOR-CON 10) 10 MEQ tablet 360 tablet 0 Sig: The patient should only Take 4 tabs with breakfast Person calling for the refill: Pt Last office visit 06/26/18 Next Appointment scheduled: 11/06/2018 Last Refill for this medication 02/09/18 Does patient have any new allergies since last office visit? No Was the pharmacy verified? Yes If this is a controlled substance was the Last 4 of SSN verified? NOT APPLICABLE (If unable to verify last 4 of SSN transfer to the clinic for further review) NSTRUCTIVE SURGEON documented in this encounter Plan of Treatment Not on file documented as of this encounter Goals Goal Patient Goal Type Associated Problems Recent Progress Patient-Stated? 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 8:09 AM RECONSTRUCTIVE SURGEON) No Jared Jaramilloa HEMOGLOBIN A1C < 7.0 Result Component 5.4( 12:00 AM CDT) No Alisa Jaramillo documented as of this encounter Visit Diagnoses Not on filedocumented in this encounter Care Teams Legal File Clerk Relationship Specialty Start [place] [address] [facility] [address] [place], [place] [address] PCP - General Internal Medicine 03/31/18 05/30/22 Etienne Florez MD Orthopedic Surgery 12/09/14 [place] [address] [facility] [address] [place] [address] Oncology 09/15/17 [place] [address] [facility] [address] [place] [address] Neurology 06/26/18 [place] [address] [facility] [address] [place] [address] Cardiovascular Disease 06/26/18 [place] [address] [address] Pulmonary Disease 06/26/18 Yuliya Ibarra MD [address] [place] [address] Endocrinology 06/26/18 Phuong Callejas DPM [address] [place] [address] Podiatry 06/26/18 Sy Barrientos MD [address] [place] [address] [place] [address] Ophthalmology 06/26/18 [place] [address] [address] Pulmonary Disease 06/26/18 Rico Gasca MD [address] [place] [address] Urology 06/26/18 Elle Landaverde MD [address] [place] [address] Vascular Surgery 06/26/18 Kirk Truong MD [address] [place] [address] Gastroenterology 06/26/18 [place] [address] [place] [phone] General Surgery 06/26/18 documented as of this encounter
--- OUTSIDE RECORDS SUMMARY | 2024-05-26 12:40 | XMS_ITS | Encounter Summary ---
Author Organization [facility] Address [address] [facility] [place] [address] Care Team Providers Care Bed Setter Name Role Phone Etienne Florez MD Unavailable Enrique Gonzalez MD Unavailable [phone] Theresa Camargo MD Primary Care Provider Nelson Ross MD Unavailable Laz Valencia MD Unavailable Russell Moran MD Unavailable [phone] Yuliya Ibarra MD Unavailable Phuong Callejas DPM Unavailable Sy Barrientos MD Unavailable Russell Moran MD Unavailable Rico Gasca MD Unavailable [phone] Elle Landaverde MD Unavailable [phone] Kirk Truong MD Unavailable [phone] Shira Love DO Unavailable [phone] Reason for Visit * Reason Onset Date Comments Results 08/10/2018 Encounter Details Date Type Department Care Team (Late st Contact Info) Description 08/10/2018 Telephone [facility] [address] [facility] [address] [place] [address] Brooke Haynes APRN-CNP [address] [facility] [address] [place] [address] Results Social History Tobacco Use [...] Telephone Encounter - Brooke Haynes APRN-CNP - 08/10/2018 9:15 AM CDT Call to pt to report CT scan, minimal pneumonia still in the right middle lobe. Follow up with Dr. Camargo when you finish rx, trying to get you in to see her about August 17. She may want you to see pulmonology if not improving and/or check chest xray again. Spoke with pt. documented in this encounter Plan of Treatment Not on file documented as of this encounter Goals Goal Patient Goal Type Associated Problems Recent Progress Patient-Stated? 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 8:09 AM ADOBE MAKER) No Alisa Jaramillo HEMOGLOBIN A1C < 7.0 Result Component 5.4( 12:00 AM CDT) No Alisa Jaramillo documented as of this encounter Visit Diagnoses Not on filedocumented in this encounter Care Teams Bed Setter Relationship Specialty [place] [address] [facility] [address] [place], [place] [id number] PCP - General Internal Medicine 03/31/18 05/30/22 Etienne Florez MD Orthopedic Surgery 12/09/14 [place] [address] [facility] [address] [place] [phone] Oncology 09/15/17 [place] [address] [facility] [address] [place] [address] Neurology 06/26/18 [place] [address] [facility] [address] [place] [address] Cardiovascular Disease 06/26/18 [place] [address] [facility] [address] [place] [id number] Pulmonary Disease 06/26/18 Yuliya Ibarra MD [address] [facility] [address] [place] [address] Endocrinology 06/26/18 Phuong Callejas DPM [address] [place] [address] Podiatry 06/26/18 Sy Barrientos MD [address] [place] [address] Ophthalmology 06/26/18 [place] [address] [address] Pulmonary Disease 06/26/18 Rico Gasca MD [address] [facility] [address] [place] [address] Urology 06/26/18 Elle Landaverde MD [address] [facility] [address] [place] [address] Vascular Surgery 06/26/18 Kirk Truong MD [address] [facility] [address] [place] [address] Gastroenterology 06/26/18 [place] [address] [address] [facility] [address] [place] [address] General Surgery 06/26/18 documented as of this encounter
--- OUTSIDE RECORDS SUMMARY | 2024-05-26 12:40 | XMS_ITS | Encounter Summary ---
Author Organization [facility] Address [address] [facility] [place] [address] Care Team Providers Care Staff Midwife Name Role Phone Etienne Florez MD Unavailable Enrique Gonzalez MD Unavailable [phone] Theresa Camargo MD Primary Care Provider Nelson Ross MD Unavailable [phone] Laz Valencia MD Unavailable Russell Moran MD Unavailable Yuliya Ibarra MD Unavailable Phuong Callejas DPM Unavailable Sy Barrientos MD Unavailable Russell Moran MD Unavailable Rico Gasca MD Unavailable Elle Landaverde MD Unavailable [phone] Kirk Truong MD Unavailable [phone] Shira Love Unavailable [phone] Encounter Details Date Type Department Care Team (Latest Contact Info) Description 07/23/2018 4:30 PM MOLD YARD CRANE OPERATOR - 07/23/2018 11:59 PM MOLD YARD CRANE OPERATOR Hospital Encounter [facility] - Radiology [address] [place] [address] Brooke aHynes, POST ANESTHESIA ROOM NURSE-SUPERVISOR PRE WAVE [address] [facility] [address] [place] [address] Discharge Disposition: Home or Self Care Social [...] times daily for 10 days 20 capsule 07/23/2018 08/02/2018 empagliflozin (JARDIANCE) 10 MG tablet Take 1 [...] < 140/90 Blood Pressure 127/52(2022 8:09 AM MOLD YARD CRANE OPERATOR) No Alisa Jaramillo HEMOGLOBIN A1C < 7.0 Result Component 5.4( 12:00 AM CDT) No Alisa Jaramillo documented as of this encounter Procedures Procedure Name Priority Date/Time Associated Diagnosis Comments XR CHEST 2VW Routine 07/23/2018 4:44 PM MOLD YARD CRANE OPERATOR Acute bronchitis, unspecified organism documented in this encounter Results * XR CHEST 2VW (07/23/2018 4:44 PM MOLD YARD CRANE OPERATOR) Anatomical Region Laterality Modality Chest Radiographic Mireya ging 07/23/2018 4:54 PM MOLD YARD CRANE OPERATOR Narrative 07/23/2018 4:54 PM MOLD YARD CRANE OPERATOR 2 views chest INDICATION: Shortness of breath [...] on 07/23/2018 at 4:54 PM Brooke Haynes POST ANESTHESIA ROOM NURSE-SUPERVISOR PRE WAVE DIAGNOSTIC IMAG ING ORDERABLES documented in this encounter Visit Diagnoses Diagnosis Acute bronchitis, unspecified organism documented in this encounter Care Teams Staff Midwife Relationship Specialty Start [place] [address] [facility] [address] [place] [address] PCP - General Internal Medicine 03/31/18 05/30/22 Etienne Florez MD Orthopedic Surgery 12/09/14 [place] [address] [place] [address] Oncology 09/15/17 [place] [address] [place] [address] Neurology 2/8/19 [place] [address] [facility] [address] [place] [address] Cardiovascular Disease 06/26/18 [place] [address] [facility] [address] [place], [place] [phone] Pulmonary Disease 06/26/18 Yuliya Ibarra MD [address] [facility] [address] [place] [address] Endocrinology 06/26/18 Phuong Callejas DPM [address] [place] [address] Podiatry 06/26/18 Sy Barrientos MD [address] [place] [address] [place] [address] Ophthalmology 06/26/18 [place] [address] [address] [place], [place] [phone] Pulmonary Disease 06/26/18 Rico Gasca MD [address] [place] [address] Urology 06/26/18 Elle Landaverde MD [address] [place] [address] Vascular Surgery 06/26/18 Kirk Truong MD [address] [place] [address] [address] [place] [address] Gastroenterology 06/26/18 [place] [address] [address] [place] [address] General Surgery 06/26/18 documented as of this encounter
--- OUTSIDE RECORDS SUMMARY | 2024-05-26 12:40 | XMS_ITS | Encounter Summary ---
Author Organization [facility] Address [address] [facility] [place] [address] Care Team Providers Care Hand Baseball Sewer Name Role Phone Etienne Florez MD Unavailable [phone] Enrique Gonzalez MD Unavailable [phone] Theresa Camargo MD Primary Care Provider Nelson Ross MD Unavailable [phone] Laz Valencia MD Unavailable Russell Moran MD Unavailable [phone] Yuliya Ibarra MD Unavailable [phone] Phuong Callejas DPM Unavailable Sy Barrientos MD Unavailable Russell Moran MD Unavailable [phone] Rico Gasca MD Unavailable [phone] Elle Landaverde MD Unavailable Kirk Truong MD Unavailable Shira Love DO Unavailable [phone] Reason for Visit * Reason Onset Date Comments Outreach Preventive Care 12/09/2018 Encounter Details Date Type Department Care Team (Late st Contact Info) Description 12/09/2018 Patient Outreach [facility] - Care Coordination [address] [place] [phone] Stacia Hernandez Outreach Preventive Care Social History Tobacco Use [...] encounter Miscellaneous Notes * Telephone Encounter - Stacia Hernandez - 12/09/2018 12:20 PM CDT Chart analysis for Annual Care Gap Review. [facility] completed: Yes Health Maintenance reviewed for open care gaps and closure process intiated. Health Maintenance Due Topic Date Due ??? ZOSTER VACCINE (2 of 3) 10/19/2007 ??? ANNUAL MEDICARE WELLNESS VISIT 06/14/2016 Patient was notified of health maintenance care gaps, and instructed on the importance of routine wellness testing. Results requested from Stacia Hernandez 12/09/2018 12:20 PM documented in this encounter Plan of Treatment Not on file documented as of this encounter Goals Goal Patient Goal Type Associated Problems Recent Progress Patient-Stated? 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 8:09 AM QUOTATION CHECKER) No Alisa Jaramillo HEMOGLOBIN A1C < 7.0 Result Component 5.4( 12:00 AM CDT) No Alisa Jaramillo documented as of this encounter Visit Diagnoses Not on filedocumented in this encounter Care Teams Hand Baseball Sewer Relationship Specialty Start [place] [address] [facility] [address] [place], [place] [phone] PCP - General Internal Medicine 03/31/18 05/30/22 Etienne Florez MD Orthopedic Surgery 12/09/14 [place] [address] [facility] [address] [place] [address] Oncology 09/15/17 [place] [address] [facility] [address] [place] [address] Neurology 06/26/18 [place] [address] [facility] [address] [place] [address] Cardiovascular Disease 06/26/18 [place] [address] [address] Pulmonary Disease 06/26/18 Yuliya Ibarra MD [address] [place] [address] Endocrinology 06/26/18 Phuong Callejas DPM [address] [place] [address] Podiatry 06/26/18 Sy Barrientos MD [address] [facility] [place] [address] Ophthalmology 06/26/18 [place] [address] [address] Pulmonary Disease 06/26/18 Rico Gasca MD [address] [facility] [address] [place] [address] Urology 06/26/18 Elle Landaverde MD [address] [facility] [address] [place] [address] Vascular Surgery 06/26/18 Kirk Truong MD [address] [facility] [address] [place] [address] Gastroenterology 06/26/18 [place] [address] [place] [phone] General Surgery 06/26/18 documented as of this encounter
--- OUTSIDE RECORDS SUMMARY | 2024-05-26 12:40 | XMS_ITS | Encounter Summary ---
Author Organization [facility] Address [address] [facility] [place] [address] Care Team Providers Care Wire Sawyer Name Role Phone Etienne Florez MD Unavailable [phone] Enrique Gonzalez MD Unavailable [phone] Theresa Camargo MD Primary Care Provider [phone] Reason for Visit * Reason Onset Date Comments Question 06/18/2018 Encounter Details Date Type Department Care Team (Late st Contact Info) Description 06/18/2018 Telephone [facility] - Surgery [address] [place] [address], [address] [phone] Ange Patterson Question Social History Tobacco Use Types Packs/Day [...] encounter Miscellaneous Notes * Telephone Encounter - Ange Patterson - 06/19/2018 11:05 AM CST Patient has sentinel lymph node biopsy, not excision and this information was provided to the patient TECHNICIAN * Telephone Encounter - Malou Christensen - 06/18/2018 10:23 AM CST Pt called and wanted to if ,Dr ramachandran removed her lymph node in August of last year. TECHNICIAN documented in this encounter Plan of Treatment Not on file documented as of this encounter Goals Goal Patient Goal Type Associated Problems Recent Progress Patient-Stated? 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 8:09 AM RF TECHNICIAN) No Alisa Jaramillo HEMOGLOBIN A1C < 7.0 Result Component 5.4( 12:00 AM CDT) No Alisa Jaramillo documented as of this encounter Visit Diagnoses Not on filedocumented in this encounter Care Teams Wire Sawyer Relationship Specialty Start [place] [address] [address] [place] [address] PCP - General Internal Medicine 03/31/18 05/30/22 Etienne Florez MD Orthopedic Surgery 12/09/14 En[place] [id number] [place] [address] Oncology 09/15/17 documented as of this encounter
--- OUTSIDE RECORDS SUMMARY | 2024-05-26 12:40 | XMS_ITS | Encounter Summary ---
Author Organization [facility] Address [address] [facility] [place] [address] Care Team Providers Care Tromper Name Role Phone Etienne Florez MD Unavailable Enrique Gonzalez MD Unavailable [phone] Theresa Camargo MD Primary Care Provider Nelson Ross MD Unavailable [phone] Laz Valencia MD Unavailable Russell Moran MD Unavailable Yuliya Ibarra MD Unavailable Phuong Callejas DPM Unavailable [phone] Sy Barrientos MD Unavailable [phone] Russell Moran MD Unavailable Rico Gasca MD Unavailable Elle Landaverde MD Unavailable Kirk Truong MD Unavailable Shira Love DO Unavailable [phone] Reason for Visit * Reason Comments Cough Encounter Details Date Type Department Care Team (Late st Contact Info) Description 08/06/2018 10:30 AM CDT Office Visit [facility] Family Medicine [address] [facility] [address] [place] [address] Brooke Haynes APRN-CNP [address] [facility] [address] [place] [address] Pneumonia of right lower lobe due to infectious organism (Primary Dx) Social History Tobacco Use Types [...] Sign Reading Time Taken Comments Blood Pressure 116/60 08/06/2018 10:51 AM CDT Pulse 53 08/06/2018 10:51 AM CDT Temperature 36.6 ??C (97.9 ??F) 08/06/2018 10:51 AM C DT Respiratory Rate - - Oxygen Saturation 95% 08/06/2018 10:51 AM CDT Inhaled Oxygen Concentration - - Weight 89.9 kg (198 lb 3.2 oz) 08/06/2018 10:51 AM CDT Height - - Body Mass Index 32.98 06/26/2018 2:17 PM SCADA OPERATOR documented in this encounter Functional Status [...] this encounter Patient Instructions * Patient Instructions* BuwaldaBrooke APRN-CNP - 08/06/2018 11:12 AM CDT Re ordering the doxycycline. Re start the mucinex dm, 2 of the regular strength tablets twice a day. We are rechecking xray of the chest and will contact you with results. If not pneumonia, we will wait and see how you do in 10 days at the end of the antibiotic to see ifyou need to return. Cover your cough, good handwashing. documented in this encounter Progress Notes * Brooke Haynes APRN-CNP - 08/06/2018 11:22 AM CDT SUBJECTIVE: Perla Leon is a 77 year old female here for: Chief Complaint Patient presents with ??? Cough Past Medical History: Diagnosis Date ??? Asthma [...] TIA (transient ischemic attack) 2000, 08/11/2008 HPI: Pt was seen on 07-23-2018 and treated for right lower lobe pneumonia. She did get better but over the past 2 days her cough has worsened. She used mucinex dm while on the antibiotic. No fevers. Feels well. Review of systems negative except as noted [...] Constipation of Unknown Cause 60 capsule 11 ??? menthol-zinc oxide (CALMOSEPTINE) [...] ??? Alcohol use No . OBJECTIVE: Vitals: 08/06/18 1051 BP: 116/60 Pulse: 53 Temp: 97.9 ??F (36.6 ??C) SpO2: 95% Weight: 89.9 kg (198 lb 3.2 oz) Body mass index is 32.98 kg/(m^2). General appearance - alert, well appearing, [...] rales or rhonchi, symmetric air entry Negative egophony but rough, good anterior forced expiration with coarseness no wheezing, positive fremitus. Heart - normal rate, regular rhythm, normal S1, S2, no murmurs, rubs, clicks or gallops, 1+ edema at baseline, peripheral pulses normal, no carotid bruits. Abdomen - bowel sounds present, soft, nontender, nondistended, no masses or hepatosplenomegaly Extremities - unsteady gait, full range of motion, no clubbing nor cyanosis. Skin - warm, dry, no rashes in visible areas. Neuro - PERRLA, CN ll through Xll intact. ASSESSMENT Encounter Diagnosis Name Primary? Pneumonia of right lower lobe due to infectious organism Yes PLAN: Considered levaquin but pt is on amaryl tid and blood sugars are running in the low 100s. Orders Placed This Encounter ??? XR CHEST 2VW Pt had right lower lobe pneumonia. Here for follow up. Standing Status: Future Standing Expiration Date: 08/06/2019 Order Specific Question: Exam to be performed? Answer: Per Radiologist protocol ??? doxycycline hyclate (VIBRAMYCIN) 100 MG capsule Sig: Take 1 capsule by mouth 2 times daily for 10 days Dispense: 20 capsule Refill: 0 Re ordering the doxycycline. Re start the mucinex dm, 2 of the regular strength tablets twice a day. We are rechecking xray of the chest and will contact you with results. If not pneumonia, we will wait and see how you do in 10 days at the end of the antibiotic to see ifyou need to return. Cover your cough, good handwashing. Further recommendations pending the above results and patient's clinical course. Follow-up visit 10 days prn, to pulmonary next. The patient indicates understanding of these issues and agrees with the plan. * Nelly Koroma F - 08/06/2018 10:55 AM CDT Patient is here today for a pneumonia follow up. Blood pressure 116/60, pulse 53, temperature 97.9 ??F (36.6 ??C), temperature source Oral, weight 89.9 kg (198 lb 3.2 oz), SpO2 95 %, not currently . documented in this encounter Plan of Treatment Not on file documented as of this encounter Goals Goal Patient Goal Type Associated Problems Recent Progress Patient-Stated? 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 8:09 AM SCADA OPERATOR) No Alisa Jaramillo HEMOGLOBIN A1C < [...] MD on 08/06/2018 at 12:03 PM Brooke Haynes ACCOUNT LEADER-RETAIL SELLING FLOOR LEADER DIAGNOSTIC IMAG ING ORDERABLES documented in this encounter Visit Diagnoses Diagnosis Pneumonia of right lower lobe due to infectious organism- Primary Pneumonia of right lower lobe due to infectious organism documented in this encounter Care Teams Tromper Relationship Specialty Start [place] [address] [facility] [address] [place] [address] PCP - General Internal Medicine 03/31/18 05/30/22 Etienne Florez MD Orthopedic Surgery 12/09/14 [place] [address] [facility] [address] [place] [address] Oncology 09/15/17 [place] [address] [facility] [address] [place] [address] Neurology 06/26/18 [place] [address] [facility] [address] [place] [address] Cardiovascular Disease 06/26/18 [place] [address] [id number] Pulmonary Disease 06/26/18 Yuliya Ibarra MD [address] [facility] [address] [place] [address] Endocrinology 06/26/18 Phuong Clalejas DPM [address] [place], [place] [address] Podiatry 06/26/18 Sy Barrientos MD [address] [place] [address] Ophthalmology 06/26/18 [place] [address] [address] Pulmonary Disease 06/26/18 Rico Gasca MD [address] [place] [address] Urology 06/26/18 Elle Landaverde MD [address] [place] [address] Vascular Surgery 06/26/18 Kirk Truong MD [address] [place] [address] Gastroenterology 06/26/18 [place] [address] [address] [facility] [address] [place] [address] General Surgery 06/26/18 documented as of this encounter
--- OUTSIDE RECORDS SUMMARY | 2024-05-26 12:40 | XMS_ITS | Encounter Summary ---
Author Organization [facility] Address [address] [facility] [place] [address] Care Team Providers Care Infertility Medical Assistant Name Role Phone Etienne Florez MD Unavailable Enrique Gonzalez MD Unavailable [phone] Theresa Camargo MD Primary Care Provider [phone] Nelson Ross MD Unavailable Laz Valencia MD Unavailable Russell Moran MD Unavailable Yuliya Ibarra MD Unavailable [phone] Phuong Callejas DPM Unavailable [phone] Sy Barrientos MD Unavailable Russell Moran MD Unavailable Rico Gasca MD Unavailable Elle Landaverde MD Unavailable Kirk Truong MD Unavailable [phone] Shira Love DO Unavailable [phone] Reason for Visit * Reason Comments Refill Request Encounter Details Date Type Department Care Team (Late st Contact Info) Description 12/11/2018 Refill [facility] - Family Medicine [address] [facility] [address] [place] [address] [place] [address] [facility] [address] [place] [address] Refill Request Social History Tobacco [...] encounter Miscellaneous Notes * Telephone Encounter - AnastaciaAmber moreloshan - 12/14/2018 9:12 AM CDT Perla Leon Requested Prescriptions Pending Prescriptions [...] Diarrhea ??? Sotalol Other Hair loss Last refill - 10/20/18 Last OV - 11/06/18 Next OV - 01/04/19 documented in this encounter Plan of Treatment Not on file documented as of this encounter Goals Goal Patient Goal Type Associated Problems Recent Progress Patient-Stated? 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 8:09 AM DENTAL INSTRUMENT MAKER) No Alisa Jaramillo HEMOGLOBIN A1C < 7.0 Result Component 5.4( 12:00 AM CDT) No Alisa Jaramillo documented as of this encounter Visit Diagnoses Not on filedocumented in this encounter Care Teams Infertility Medical Assistant Relationship Specialty Start [place] [address] [facility] [address] [place] [address] PCP - General Internal Medicine 03/31/18 05/30/22 Etienne Florez MD Orthopedic Surgery 12/09/14 [place] [address] [facility] [address] [place] [address] Oncology 09/15/17 [place] [address] [facility] [address] [place] [address] Neurology 06/26/18 [place] [address] [facility] [address] [place] [address] Cardiovascular Disease 06/26/18 [place] [address] [address] Pulmonary Disease 06/26/18 Yuliya Ibarra MD [address] [place] [address] Endocrinology 06/26/18 Phuong Callejas DPM [address] [place], [place] [id number] Podiatry 06/26/18 Sy Barrientos MD [address] [place] [address] Ophthalmology 06/26/18 [place] [address] [id number] Pulmonary Disease 06/26/18 Rico Gasca MD [address] [place] [address] Urology 06/26/18 Elle Landaverde MD [address] [place] [address] Vascular Surgery 06/26/18 Kirk Truong MD [address] [place] [address] Gastroenterology 06/26/18 [place] [address] [place] [phone] General Surgery 06/26/18 documented as of this encounter
--- OUTSIDE RECORDS SUMMARY | 2024-05-26 12:40 | XMS_ITS | Encounter Summary ---
Author Organization [facility] Address [address] [place] [address] Care Team Providers Care Upkeep Worker Name Role Phone Etienne Florez MD Unavailable Enrique Gonzalez MD Unavailable [phone] Theresa Camargo MD Primary Care Provider [phone] Nelson Ross MD Unavailable Laz Valencia MD Unavailable Russell Moran MD Unavailable Yuliya Ibarra MD Unavailable Phuong Callejas DPM Unavailable Sy Barrientos MD Unavailable Russell Moran MD Unavailable Rico Gasca MD Unavailable Elle Landaverde MD Unavailable [phone] Kirk Truong MD Unavailable [phone] Shira Love DO Unavailable [phone] Reason for Visit * Oncology Prior Authorization (Routine) - Closed Specialty Diagnoses / Procedures Referred By Alejandrina vale Referred To Contact Diagnoses Malignant neoplasm of upper-outer quadrant of left breast in female, estrogen receptor positive (HCC) Osteopenia of multiple sites Aromatase inhibitor use Procedures ONCOLOGY MEDICATION AUTH COMMUNICATION Enrique Gonzalez MD [address] [place] [phone] [facility] [address] [place] [id number] Referral ID Status Reason Start Date Expiration Date Visits Re quested Visits Authorized [id number] Closed 10/29/2017 05/18/2023 1 99 Encounter Details Date Type Department Care Team (Latest Contact Info) Description 08/21/2018 10:15 AM CDT - 08/21/2018 11:59 PM CDT Hospital Encounter Infusion Services at [address] [address] Enrique Gonzalez MD [address] [place] [address] Discharge Disposition: Home or Self Care [...] No 12/28/2016 documented as of this encounter Discharge Instructions * Discharge Instructions* Alice Venegas RN - 08/21/2018 11:30 AM CDT Kristynia bryant RTC in 6 months with BMP documented in this encounter Medications at Time [...] as of this encounter Progress Notes * Alice Venegas RN - 08/21/2018 12:36 PM CDT Loc Anderson was seen at [facility] on 08/21/2018 for prolia injection. Calciumlevel 10.0, drawn this am. Prolia injection given. Next appointments made. Patient discharged home with her . MEDICATIONS FOR CURRENT ENCOUNTER: ?? SCHEDULED MEDICATIONS: ?? [COMPLETED] denosumab (PROLIA) SC injection SOLN 60 mg, Subcutaneous, Once ?? CONTINUOUS MEDICATIONS: ?? No current facility-administered medications for this encounter. ?? PRN MEDICATIONS: ?? No current facility-administered medications for this encounter. Results for LOC ANDERSON ( ) as of 08/21/2018 12:38 Ref. Range 08/21/2018 10:26 Glucose Latest Ref Range: 74 - 106 mg/dL 147 (H) BUN Latest Ref Range: 9.8 - 20.1 mg/dL 13 Creatinine Latest Ref Range: 0.55 - 1.02 mg/dL 0.71 Sodium Latest Ref Range: 136 - 145 mmol/L 142 Potassium Latest Ref Range: 3.5 - 5.1 mmol/L 3.8 Chloride Latest Ref Range: 98 - 107 mmol/L 110 (H) CO2 Latest Ref Range: 23 - 31 mmol/L 27 Anion Gap Latest Ref Range: 8 - 16 mmol/L 5 (L) Calcium Latest Ref Range: 8.4 - 10.2 mg/dL 10.0 eGFR by MDRD Latest Units: mL/min/1.73m2 >60 eGFR by MDRD Latest Units: mL/min/1.73m2 >60 documented in this encounter Plan of Treatment Not on file documented as of this encounter Goals Goal Patient Goal Type Associated Problems Recent Progress Patient-Stated? 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 8:09 AM DELINQUENCY COUNSELOR) No Alisa Jaramillo HEMOGLOBIN A1C < 7.0 Result Component 5.4( 12:00 AM CDT) No Alisa Jaramillo documented as of this encounter Visit Diagnoses Diagnosis Osteopenia of multiple sites Malignant neoplasm of upper-outer quadrant of left breast in female, estrogen receptor positive (HCC) documented in this encounter Administered Medications Inactive Administered Medications - up to 3 most recent administrations Medication Order MAR Action Action Date Dose Rate Site denosumab (PROLIA) SC injection SOLN 60 mg 60 mg, Subcutaneous, ONCE, 1 dose, On Fri08/21/18 at 1115 $ Given 08/21/2018 11:23 AM CDT 60 mg Abd Left Lower Quadrant documented in this encounter Care Teams Upkeep Worker Relationship Specialty [place] [address] [facility] [address] [place] [address] PCP - General Internal Medicine 03/31/18 05/30/22 Etienne Florez MD Orthopedic Surgery 12/09/14 [place] [address] [facility] [address] [place] [phone] Oncology 09/15/17 [place] [address] [facility] [address] [place] [phone] Neurology 06/26/18 [place] [address] [facility] [address] [place] [address] Cardiovascular Disease 06/26/18 [place] [address] [facility] [address] [place] [address] Pulmonary Disease 06/26/18 Yuliya Ibarra MD [address] [facility] [address] [place] [id number] Endocrinology 06/26/18 Phuong Callejas DPM [address] [place] [address] Podiatry 06/26/18 Sy Barrientos MD [address] [place] [address] [place] [address] Ophthalmology 06/26/18 [place] [address] [id number] Pulmonary Disease 06/26/18 Rico Gasca MD [address] [facility] [address] [place] [address] Urology 06/26/18 Elle Landaverde MD [address] [facility] [address] [place] [address] Vascular Surgery 06/26/18 Kirk Truong MD [address] [facility] [address] [place] [address] Gastroenterology 06/26/18 [place] [address] [place] [phone] General Surgery 06/26/18 documented as of this encounter
--- OUTSIDE RECORDS SUMMARY | 2024-05-26 12:40 | XMS_ITS | Encounter Summary ---
Author Organization [facility] Address [address] [facility] [address] Care Team Providers Care Fingernail Sculpturer Name Role Phone Etienne Florez MD Unavailable Enrique Gonzalez MD Unavailable [phone] Theresa Camargo MD Primary Care Provider [phone] Nelson Ross MD Unavailable Laz Valencia MD Unavailable Russell Moran MD Unavailable Yuliya Ibarra MD Unavailable Phuong Callejas DPM Unavailable [phone] Sy Barrientos MD Unavailable [phone] Russell Moran MD Unavailable Rico Gasca MD Unavailable Elle Landaverde MD Unavailable [phone] Kirk Truong MD Unavailable [phone] Shira Love DO Unavailable [phone] Reason for Visit * Reason Onset Date Comments Sinus Problem 07/20/2018 Cough 07/20/2018 Congestion 07/20/2018 Encounter Details Date Type Department Care Team (Late st Contact Info) Description 07/20/2018 Telephone [facility] [address] [facility] [address] [place] [address] [place] [address] [facility] [address] [place] [address] Sinus Problem; Cough; Congestion Social History Tobacco Use Types Packs/Day Years [...] * Telephone Encounter - Breezy Townsend - 07/20/2018 4:13 PM CST Message left for pt to contact the office to schedule an appt. [facility] * Telephone Encounter - Theresa Camargo MD - 07/20/2018 4:08 PM CST She had a medications sent out for her at the end of June. Will I do not send out 2nd round sheneeds to come in and be seen [facility] * Telephone Encounter - Christine Reyes - 07/20/2018 1:56 PM CST Who is calling? self If other than self is caller listed on the HIPAA? yes What is the reason for call? Patient requesting refill of zpak or different medications she is tillnot well, she is having cough, congestion in her chest, wheezing, sinus issues- clogged up , she feels like she doesn't want to be around anyone She completed the medication prescribed Expected Response from the Clinic? Call patient to advise [facility]- On [address] [place] [address] in [facility] [phone] [facility] documented in this encounter Plan of Treatment Not on file documented as of this encounter Goals Goal Patient Goal Type Associated Problems Recent Progress Patient-Stated? 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 8:09 AM [facility]) No Alisa Jaramillo HEMOGLOBIN A1C < 7.0 Result Component 5.4( 12:00 AM CDT) No Alisa Jaramillo documented as of this encounter Visit Diagnoses Not on filedocumented in this encounter Care Teams Fingernail Sculpturer Relationship Specialty [place] [address] [facility] [address] [place] [address] PCP - General Internal Medicine 03/31/18 05/30/22 Etienne Florez MD Orthopedic Surgery 12/09/14 [place] [address] [facility] [address] [place] [address] Oncology 09/15/17 [place] [address] [address] [employer] [facility] [address] [place] [address] Neurology 06/26/18 [place] [address] [facility] [address] [place] [address] Cardiovascular Disease 06/26/18 Russell [place] [id number] [place] [address] [address] [place] [address] Pulmonary Disease 06/26/18 Yuliya Ibarra MD [address] [facility] [address] [place] [address] Endocrinology 06/26/18 Phuong Callejas DPM [address] [place] [address] Podiatry 06/26/18 Sy Barrientos MD [address] [place] [address] [place] [address] Ophthalmology 06/26/18 [place] [address] [address] [place] [address] Pulmonary Disease 06/26/18 Rico Gasca MD [address] [place] [address] Urology 06/26/18 Elle Landaverde MD [address] [place] [address] Vascular Surgery 06/26/18 Kirk Truong MD [address] [facility] [address] [place] [address] Gastroenterology 06/26/18 [place] [address] [address] [place] [address] General Surgery 06/26/18 documented as of this encounter
--- OUTSIDE RECORDS SUMMARY | 2024-05-26 12:41 | XMS_ITS | Encounter Summary ---
Author Organization [facility] Address [address] [facility] [place] [address] Care Team Providers Care Carpenter'S Helper Name Role Phone Etienne Florez MD Unavailable [phone] Enrique Gonzalez MD Unavailable [phone] Reason for Visit * Reason Comments Hematochezia Encounter Details Date Type Department Care Team (Late st Contact Info) Description 12/12/2017 1:30 PM CDT Office Visit [facility] [address] [facility] [address] [place] [address] [place] [address] [facility] [address] [address] Melena (Primary Dx); Iron deficiency anemia due to chronic blood loss; Chronic idiopathic constipation Social History Tobacco Use Types Packs/Day Years [...] Sign Reading Time Taken Comments Blood Pressure 178/88 12/12/2017 1:42 PM CDT Pulse - - Temperature - - Respiratory Rate - - Oxygen Saturation - - Inhaled Oxygen Concentration - - Weight 95.9 kg (211 lb 6.4 oz) 12/12/2017 1:42 P M CDT Height - - Body Mass Index 35.18 12/09/2017 2:11 PM CDT documented in this encounter Functional [...] this encounter Patient Instructions * Patient Instructions* Kirk Truong MD - 12/12/2017 1:58 PM CDT Stop Amitiza Start Linzess 290mcg. Take 30 min before breakfast Hold Aspirin and plavix for 5 days prior to EGD LILIA TRUONG M.D. [address] [facility] [address] OFFICE: [phone] [place], [place] [address] EXCHANGE: [phone] UPPER ENDOSCOPY >Please notify our office if you are taking a blood thinner (ie. Coumadin, Plavix) or medications that contain aspirin. STOP Aspirin and Plavix on December 18 >If your insurance requires a referral from your primary care physician It is ultimately your responsibility to obtain the referral. YOU may have ONLY CLEAR until 9 am, nothing after DAY OF THE PROCEDURE December 23 >You may take your routine medications (not blood thinners or aspirin) With a sip of water. >Report to the [facility] 2nd Floor Outpatient Surgery Waiting Room at 12 pm >Your procedure is scheduled for 1 pm >You will be given medication for this procedure. You MUST have a Traffic Worker present to take you home. IF you have any questions please call the office at [phone]. documented in this encounter Progress Notes * Kirk Truong MD - 12/12/2017 2:01 PM CDT Office Consult Note DEMOGRAPHICS: Patient: Perla Leon : 1940 Referring Physician: Jarrell Garrison MD Reason for consultation: Perla Leon is a most pleasant 77 y.o. female whom I am asked to consult for melena and microcytic anemia. Patient reports intermittent black streaks in her stool for 6 months. She denies any hematochezia. She denies nausea vomiting abdominal pain dysphagia weight loss. She has a longstanding history of alternating constipation and diarrhea which she relates to irritable bowel syndrome. More recently she has been progressively constipated. She is currently taking Amitiza 24 mcg b.i.d. withoutimprovement. She is currently having 1 bowel movement per week despite Amitiza and Metamucil. She has a remote history of peptic ulcer disease. She takes Plavix and aspirin for atrial fibrillation. Her last endoscopy was in [address] gordillo. Her last colonoscopy was in 2011 at which time polyps were removed. HISTORY OF PRESENT ILLNESS: Perla Leon is a 77 y.o. female with a Chief Complaint Patient presents with ??? Hematochezia . PAST HISTORY: Past Medical History: Diagnosis Date ??? Asthma [...] ??? Cholecystectomy 10/28/1997 ??? COLONOSCOPY 2011 ??? Hernia Repair 01/17/2010 ??? Hysterectomy 1986 [...] Spouse name: N/A ??? Number of children: N/A ??? Years of education: N/A Occupational History ??? Not on file. Social History Main Topics ??? Smoking status: Never Smoker ??? Smokeless tobacco: Never Used ??? Alcohol use No ??? Drug use: No ??? Sexual activity: Not on file Other Topics Concern ??? Not on file Social History Narrative Family History Problem Relation Age of Onset ??? Cancer - Breast Mother ??? Coronary Artery Disease Father CHF ??? Coronary Artery Disease Brother CHF ALLERGIES: Allergies Allergen Reactions ??? Advair Diskus YEAS INFECTION ??? Aricept [Donepezil] Other I dont remember ??? Diltiazem Swelling ??? Metformin Diarrhea ??? Fluticasone Diarrhea ??? Piper Longum ??? Salmeterol Diarrhea ??? Sotalol Other Hair loss MEDICATIONS: Perla Leon has a current medication list which includes the following prescription(s): polyethylene glycol 3350, esomeprazole, calcium carbonate- vitamin d, rosuvastatin, lubiprostone, polyethyl glycol-propyl glycol, anastrozole, potassium chloride, clopidogrel, metolazone, amitriptyline, menthol-zinc oxide, psyllium, hydroxypropyl methylcellulose 0.3%, furosemide, empagliflozin, verapamil sr 24hr, flecainide acetate, aspirin, insulin detemir, sitagliptin, latanoprost, glimepiride, albuterol hfa, multivitamin with iron, cyanocobalamin, hydrocodone-acetaminophen, and hydrocodone-acetaminophen. REVIEW OF SYSTEMS: General ROS: alert oriented and cooperative ENMT ROS: patent airway Endocrine ROS: negative Respiratory ROS: negative, no cough, shortness of breath, or wheezing Cardiovascular ROS: negative,no chest pain or dyspnea on exertion Gastroenterology: See HPI Genito-Urinary ROS: negative, no dysuria, trouble voiding, or hematuria Musculoskeletal ROS: negative Neurological ROS: negative,no TIA or stroke symptoms Dermatological ROS: negative Skin: No rash or pruritus. PHYSICAL EXAM: BP 178/88 Wt 95.9 kg (211 lb 6.4 oz) BMI 35.18 kg/m2 Physical Exam: Gen: Alert, oriented, no distress HEENT: Nc/at, perrl/eomi, OP clear Neck: No significant LAD, nonpalpable thyroid Lungs: CTA bilaterally CV: RRR, s1s2, no murmurs heard Abdomen: Soft, non tender, non distended, normal bowel sounds, no organomegaly Extremities: No edema Skin: Normal. No rash. LABS: Recent Labs Component Name 10/22/17 1157 09/08/17 0807 08/26/17 0413 08/25/17 0717 06/12/17 0823 12/29/16 0121 SODIUM - 142 140 142 141 144 POTASSIUM 4.4 3.4* 3.1* 2.9* 3.5 3.8 CHLORIDE - 109* 104 105 102 111* CO2 - 27 31 29 31 27 BUN - 19 21 21 15 14 CREATININE - 0.84 0.89 0.80 0.92 0.91 GLUCOSE - 136* 167* 122* 90 181* Recent Labs Component Name 12/09/17 1545 08/26/17 0413 08/25/17 0717 06/12/17 0823 12/29/16 0121 12/28/16 1814 WBC 7.5 12.6* 6.3 8.2 6.6 7.6 HGB 11.0* 10.0* 11.6* 11.2* 10.8* 11.5* PLTCOUNT 326 386 388 425* 290 318 MCV 77* 75.1* 74.7* 75.8* 77.1* 76.8* INR - - - - - 1.0 Recent Labs Component Name 06/12/17 0823 12/28/16 1814 06/13/16 1245 ALBUMIN 4.2 3.6 4.0 ALKPHOS 90 127* 127* TBIL 0.4 0.2 0.4 AST 17 18 18 ALT 21 25 30 No results for input(s): AMYLASE, LIPASE, FERRITIN, IRON, SATURATION in the last 97284 hours. ASSESSMENT/PLAN: Perla Leon is a 77 y.o. female with intermittent black stools and microcytic anemia 1. I recommended an upper endoscopy for further evaluation. This will be performed off aspirin and Plavix. I doubt that her intermittent black streaks in stool likely represent bleeding. If her endoscopy is unremarkable I would not recommend pursuing a colonoscopy given her age, functional status and fairly recent colonoscopy in 2011. If her hemoglobin drops below 10 she may warrant iron supplementation. If endoscopy is unremarkable I would recommend simply monitoring her hemoglobin levels every 3 or 4 months. 2. Chronic constipation. She should discontinue Amitiza as it is not helping. I will try her on Linzess 290 mcg q.day. Samples were provided. 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 She requires a walker and leg braces. I have discussed the above recommendations and their risks, benefits, and alternatives, with the patient and any family present, and all agreed with the plan. All questions were answered. documented in this encounter Plan of Treatment Not on file documented as of this encounter Goals Goal Patient Goal Type Associated Problems Recent Progress Patient-Stated? 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
--- OUTSIDE RECORDS SUMMARY | 2024-05-26 12:41 | XMS_ITS | Encounter Summary ---
Author Organization [facility] Health Address [address] [facility] [place] [address] Care Team Providers Care Receiving Dock Checker Name Role Phone Etienne Florez MD Unavailable Enrique Gonzalez MD Unavailable [phone] Reason for Visit * Auth/Cert Specialty Diagnoses / Procedures Referred By Contac t Referred To Contact Procedures ESOPHAGOGASTRODUODENOSCOPY (EGD) DIAGNOSTIC Referral ID Status Reason Start Date Expiration Date Visits Re quested Visits Authorized [id number] 1 1 Encounter Details Date Type Department Care Team (Latest Contact Info) Description 12/23/2017 12:05 PM CDT - 12/23/2017 1:47 PM CDT Hospital Encounter [facility] - Endoscopy Services [address] [place] [address] [place] [address] [facility] [place] [address] Surgery General Discharge Disposition: Home [...] Sign Reading Time Taken Comments Blood Pressure 172/85 12/23/2017 1:35 PM CDT Pulse 82 12/23/2017 1:35 PM CDT Temperature 36 ??C (96.8 ??F) 12/23/2017 1:15 PM CDT Respiratory Rate 26 12/23/2017 1:35 PM CDT Oxygen Saturation 92% 12/23/2017 1:35 PM CDT Inhaled Oxygen Concentration - - Weight 95.7 kg (211 lb) 12/23/2017 12:48 PM CDT Height 165.1 cm (5' 5 ) 12/23/2017 12:48 PM CDT Body Mass Index 35.11 12/23/2017 12:48 PM CDT documented in this encounter Functional [...] by mouth at bedtime 180 tablet 3 04/14/2017 02/09/2018 anastrozole (ARIMIDEX) 1 MG tabletIndications:Randell y Malignant [...] 10/29/2017 06/09/2020 clopidogrel (PLAVIX) 75 MG tablet Take 1 tablet by mouth at bedtime 90 tablet 2 09/17/2017 02/09/2018 Cyanocobalamin 1000 MCG Take by mouth once daily. 05/21/2022 empagliflozin (JARDIANCE) 10 MG tablet Take 1 Tab by mouth once daily 90 Tab 3 10/21/2016 02/09/2018 esomeprazole (NEXIUM) 40 MG capsule Take 1 capsule by mouth once daily 90 capsule 11/11/2017 02/12/2018 FLECAINIDE ACETATE PO Take 50 mg by [...] nightly as needed for Dry Eyes 09/14/2020 insulin detemir (LEVEMIR) vial Inject 6 Units subcutaneously at bedtime 06/26/2018 latanoprost (XALATAN) 0.005 % ophthalmic solution Instill 1 drop into both eyes at bedtime 09/14/2020 menthol-zinc oxide (CALMOSEPTINE) 0.44-20.6 % ointment Apply to affected area as needed for Other 09/14/2020 metOLazone (ZAROXOLYN) 2.5 MG tablet Take 1 tablet by mouth twice a week on Friday and 05/30/2022 polyethyl glycol-propyl glycol (SYSTANE) 0.4-0.3 % ophth solution Instill 1 drop into both eyes once as needed 09/14/2020 polyethylene glycol 3350 (MIRALAX) packet Take 17 g by mouth once daily 04/13/2019 potassium chloride (KLOR-CON 10) 10 MEQ tablet The patient should only Take 4 tabs with breakfast 360 tablet 1 09/19/2017 02/09/2018 psyllium (METAMUCIL) 58.6 % powderIndications:Cons tipation Take 1 packet by mouth as needed Reasons: Constipation 05/06/2019 rosuvastatin (CRESTOR) 10 MG tablet Take 1 tablet by mouth at bedtime 90 tablet 3 10/27/2017 10/20/2018 verapamil SR 24hr (VERELAN) 240 MG capsule Take 240 mg by mouth once daily 11/23/2019 documented as of this encounter H&P Notes * Kirk Truong MD - 12/23/2017 12:57 PM CDT ENDOSCOPY PRE-PROCEDURE MEDICAL HISTORY & PHYSICAL Perla Leon 77 y.o. female BP 161/64 Pulse 84 Temp 96.5 ??F (35.8 ??C) Resp 18 Ht 1.651 m (5' 5 ) Wt 95.7 kg (211 lb) SpO2 94%BMI 35.11 kg/m2 History: Past Medical History: Diagnosis Date [...] ??? TIA (transient ischemic attack) 2000, 08/11/2008 Allergies Allergen Reactions ??? Advair Diskus YEAS INFECTION ??? Aricept [Donepezil] Other I dont remember ??? Diltiazem Swelling ??? Metformin Diarrhea ??? Fluticasone Diarrhea ??? Piper Longum ??? Salmeterol Diarrhea ??? Sotalol Other Hair loss Prescriptions Prior to Admission Medication Sig Dispense Refill ??? polyethylene glycol 3350 (MIRALAX) packet Take 17 g by mouth once daily ??? esomeprazole (NEXIUM) 40 MG capsule Take 1 capsule by mouth once daily 90 capsule 0 ??? calcium carbonate-vitamin D (CALTRATE 600+D) 600-400 MG-UNIT tablet Take 1 tablet by mouth 2 times daily 60 tablet ??? rosuvastatin (CRESTOR) 10 MG tablet Take 1 tablet by mouth at bedtime 90 tablet 3 ??? polyethyl glycol-propyl glycol (SYSTANE) 0.4-0.3 % ophth solution 1 drop ??? 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 potassium chloride (KLOR-CON 10) 10 MEQ tablet The patient should only Take 4 tabs with breakfast 360 tablet 1 ??? clopidogrel (PLAVIX) 75 MG tablet Take 1 tablet by mouth at bedtime 90 tablet 2 ??? metOLazone (ZAROXOLYN) 2.5 MG tablet Take 2.5 mg by mouth every 7 days ??? amitriptyline (ELAVIL) 25 MG tablet Take 2 tablets by mouth at bedtime 180 tablet 3 ??? psyllium (METAMUCIL) 58.6 % powder Take 1 Packet by mouth 3 times daily Reasons: Constipation ??? hydroxypropyl methylcellulose 0.3% (SYSTANE OVERNIGHT THERAPY) 0.3 % ophthalmic gel Instill 1 Drop into both eyes nightly as needed for Dry Eyes ??? furosemide (LASIX) 40 MG tablet Take 1 Tab by mouth once daily 90 Tab 2 ??? empagliflozin (JARDIANCE) 10 MG tablet Take 1 Tab by mouth once daily 90 Tab 3 ??? verapamil SR 24hr (VERELAN) 240 MG [...] tab with lunch, 2.5 with dinner. ??? multivitamin with iron (ONE A DAY WITH IRON) tablet Take 1 Tab by mouth once daily. ??? Cyanocobalamin (B-12) 1000 MCG TBCR Take by mouth once daily. ??? menthol-zinc oxide (CALMOSEPTINE) 0.44-20.6 % ointment Apply to affected area as needed for Other ??? albuterol HFA (PROAIR HFA) 108 (90 BASE) MCG/ACT inhaler Take 2 Puffs by mouth every 4 hours asneeded. Current Facility-Administered Medications Medication Dose Route Frequency Provider Last Rate Last Dose ??? 0.9% NaCl infusion Intravenous Continuous Kirk Truong MD Physicial Exam: Physical exam is normal ASA Evaluation and Anesthesia Plan: Anesthesia administered per Anesthesia Department Indication(s) for Procedure: Anemia, melena Procedure Planned: EGD Kirk Truong MD documented in this encounter Plan of Treatment Not on file documented as of this encounter Goals Goal Patient Goal Type Associated Problems Recent Progress Patient-Stated? 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 8:09 AM NOTCH GRINDER) No Alisa Jaramillo HEMOGLOBIN A1C < 7.0 Result Component 5.4( 12:00 AM CDT) No Alisa Jaramillo documented as of this encounter Procedures Procedure Name Priority Date/Time Associated Diagnosis Comments PATHOLOGY TISSUE EXAM (STL) Routine 11/2017 1:10 PM CDT Diagnosis unknown ESOPHAGOGASTRODUODENOSCOPY ( EGD) DIAGNOSTIC 12/23/2017 12:59 PM CDT EGD Routine 12/23/2017 12:43 PM CDT documented in this encounter Results * GROSS + MICRO EXAM (STL) (12/23/2017 1:10 PM CDT) Case Report Surgical Pathology Report ? Case: [id number] ? Authorizing Provider: ??Kirk Truong MD ? Collected: ? 12/23/2017 01:10 PM ? Ordering Location: ? [facility] ?Received: ?12/23/2017 01:29 PM ? Pathologist: ? Femi Carbajal MD ? Specimen: ?Duodenal Biopsy ? 12/24/2017 3:26 PM CDT [facility] Final Diagnosis 1. Duodenal biopsy: -- No pathologic diagnosis /moiz 12/24/2017 3:26 PM CDT [facility] Gross Description Received in formalin labeled with the patient's name and duodenal biopsy are five pieces of ayala tissue ranging in size from less than 0.1 x 0.1 up to 0.3 x 0.2 cm. Stained and submitted in A1. / 12/24/2017 3:26 PM CDT [facility] Microscopic Description The duodenal biopsies show normal small bowel mucosa with tall villi. No significant inflammation is seen. No pathogenic microorganisms are detected. AB/scs 12/24/2017 3:26 PM CDT [facility] Disclaimer All histochemical and/or immunohistochemical results are interpreted with controls that demonstrate appropriate staining reactions before reporting results. Note on use of immunocytochemistry reagents: This test was developed and its performance characteristic determined by [facility], Department of Laboratory Medicine. It has not been cleared or approved by the U.S. Food and Drug Administration (FDA). The FDA has determined that such clearance or approval is not necessary. The test is used for clinical purpose. It should not be regarded as investigational or for research. This laboratory is certified to perform high complexity testing. 12/24/2017 3:26 PM CDT [facility] Embedded Images 12/24/2017 3:26 PM CDT [facility] Pathology/Cytolo gy DUODENAL BIOPSY SPECIMEN / Unknown 12/23/2017 1:10 PM CDT 12/23/2017 1:29 PM CDT Kirk Truong MD LAB - PATHOLOGY/CYT OLOGY ORDERABLES [facility] [address] [place] [address] * EGD (12/23/2017 12:43 PM CDT) Report Endoscopy POC __ _ Patient Name: Perla Leon ? Procedure Date: 12/23/2017 12:43 PM ? Date of : 1940 ?Admit Type: Outpatient Age: 77 ? Gender: Female Attending MD: Kirk Truong MD __ _ Procedure: ? Upper GI endoscopy Indications: ? Iron deficiency anemia, Possible Melena Providers: ? Kirk Truong MD (Doctor) Referring MD: ?Jarrell Garrison [...] the physician, the ? nurse and the animal eviscerator in the procedure room. Mental ? Status [...] Procedure Code(s): ? --- Professional --- ? 06779, Esophagogastroduode noscopy, flexible, transoral; with biopsy, ? single or multiple ? --- Technical --- ? 35920, Esophagogastroduode noscopy, flexible, transoral; with biopsy, ? single or multiple Diagnosis Code(s): ? --- Professional --- ? 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 D50.9, Iron deficiency anemia, unspecified ? K92.1, Melena (includes Hematochezia) ? --- Technical --- ? 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 D50.9, Iron deficiency anemia, unspecified ? K92.1, Melena (includes Hematochezia) CPT copyright 2015 [employer]. All rights reserved. The codes documented in this report are preliminary and upon commercial real estate attorney review may be revised to meet current compliance requirements. Dr. Kirk Truong MD ____ Kirk Truong MD 12/23/2017 1:13:17 PM This report has been signed electronically. Number of Addenda: 0 Note Initiated On: 12/23/2017 12:43 PM [facility] 12/23/2017 12:4 3 PM CDT Kirk Truong MD GI PROCEDURE ORDERA BLES [facility] [place] [place] [address] documented in this encounter Visit Diagnoses Diagnosis Diagnosis unknown Other unknown and unspecified cause of morbidity or mortality documented in this encounter Administered Medications Inactive Administered Medications - up to 3 most recent administrations Medication Order MAR Action Action Date Dose Rate Site 0.9% NaCl infusion at 20 mL/hr, Intravenous, CONTINUOUS, Starting on Fri12/23/17 at 1315, Until Fri12/23/17 at 1448, Pre-procedure (GI) $ New Bag/Syringe 12/23/2017 12:50 PM CDT 0.9% NaCl injection 3 mL 3 mL, Intracatheter, PRE-PROCEDURE MULTIPLE, Starting on Fri12/23/17 at 1257, Until Fri12/23/17 at 1448, For Saline Lock flushes if one is inserted for Bronchoscopy/Endoscopy procedure., Pre-procedure (GI) documented in this encounter Active and Recently Administered Medications Times are shown in CDT. Scheduled Medication Order 12/21/2017 12/22/2017 12/23/2017 0.9% NaCl injection 3 mL 3 mL, Intracatheter, PRE-PROCEDURE MULTIPLE, Starting on 12/23/17 at 1257, Until 12/23/17 at 1448, For Saline Lock flushes if one is inserted for Bronchoscopy/Endoscopy procedure., Pre-procedure (GI) Continuous Medication Order 12/21/2017 12/22/2017 12/23/2017 0.9% NaCl infusion at 20 mL/hr, Intravenous, CONTINUOUS, Starting on 12/23/17 at 1315, Until 12/23/17 at 1448, Pre-procedure (GI) 1250 ($ New Bag/Syri nge - Provider: JUANITO Garcia)1316 (Anesthesia Volume Adjustment - Provider: JUANITO Garcia) documented in this encounter Care Teams Receiving Dock Checker Relationship Specialty Start Date End Date Etienne Florez MD Orthopedic Surgery 12/09/14 [place] [id number] [address] Oncology 09/15/17 documented as of this encounter
--- OUTSIDE RECORDS SUMMARY | 2024-05-26 12:41 | XMS_ITS | Encounter Summary ---
Author Organization [facility] Health Address [address] [facility] [place] [address] Care Team Providers Care Lawn Mower Sharpener Name Role Phone Etienne Florez MD Unavailable [phone] Enrique Gonzalez MD Unavailable [phone] Reason for Visit * Oncology Prior Authorization (Routine) - Closed Specialty Diagnoses / Procedures Referred By Contac t Referred To Contact Diagnoses Malignant neoplasm of upper-outer quadrant of left breast in female, estrogen receptor positive (HCC) Osteopenia of multiple sites Aromatase inhibitor use Procedures ONCOLOGY MEDICATION [place] [address] [facility] [employer] [address] [place] [address] [facility] [id number] [place] [address] [place] [id number] Referral ID Status Reason Start Date Expiration Date Visits Re quested Visits Authorized [id number] Closed 10/29/2017 05/18/2023 1 99 Encounter Details Date Type Department Care Team (Latest Contact Info) Description 01/14/2018 10:25 AM CDT - 01/14/2018 11:59 PM CDT Hospital Encounter Infusion Services at [facility] [address] [facility] [address] [place] [address] [place] [address] [facility] [address] [place] [address] Discharge Disposition: Home or Self Care Social [...] drop into both eyes at bedtime 09/14/2020 linaCLOtide (LINZESS) 145 MCG capsule Take 1 capsule by mouth daily before breakfast Take on an empty stomach at least 30 minutes prior to first meal of the day. 30 capsule 01/08/2018 03/31/2018 menthol-zinc oxide (CALMOSEPTINE) 0.44-20.6 % ointment Apply [...] as of this encounter Progress Notes * Brandi Haddad RN - 01/14/2018 12:18 PM CDT Mrs Anderson was seen toay for lab and prolia. Tolerated well. Will return in 3 months. Results for LOC ANDERSON ( ) as of 01/14/2018 12:19 Ref. Range 01/14/2018 11:19 Glucose Latest Ref Range: 74 - 106 mg/dL 178 (H) BUN Latest Ref Range: 7 - 21 mg/dL 14 Creatinine Latest Ref Range: 0.50 - 1.30 mg/dL 0.95 Sodium Latest Ref Range: 136 - 145 mmol/L 139 Potassium Latest Ref Range: 3.5 - 5.1 mmol/L 3.2 (L) Chloride Latest Ref Range: 98 - 107 mmol/L 101 Carbon Dioxide Latest Ref Range: 22 - 31 mmol/L 30 Anion Gap Latest Ref Range: 8 - 16 mmol/L 8 Calcium Latest Ref Range: 8.5 - 10.1 mg/dL 9.9 eGFR MDRD Latest Units: mL/min/1.73m2 57 eGFR MDRD AFR AMR Latest Units: mL/min/1.73m2 >60 * Alicia Gustafson, MEETING SPECIALIST-THREAD SPINNER - 01/14/2018 12:17 PM CDT Potassium 3.2, currently being treated by Dr. Brown. She is currently on kcl 10 meq 4 tabs a day. Call placed to dr brown's office, spoke with gonzalez, his medical billing coordinator, to convey abnormal lab to dr brown. Per Gonzalez, she will speak with dr brown and she will then contact the patient for further followup * Mine Fan RN - 01/14/2018 10:41 AM CDT Needs stat calcium per dr gonzalez documented in this encounter Plan of Treatment Not on file documented as of this encounter Goals Goal Patient Goal Type Associated Problems Recent Progress Patient-Stated? 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 8:09 AM HOGSHEAD ROLLER) No Alisa Jaramillo HEMOGLOBIN A1C < 7.0 [...] 60 mg, Subcutaneous, ONCE, 1 dose, On Fri01/14/18 at 1215 $ Given 01/14/2018 12:14 PM CDT 60 mg Abdominal Tissue documented in this encounter Care Teams Lawn Mower Sharpener Relationship Specialty Start Date End Date Etienne Florez MD Orthopedic Surgery 12/09/14 [place] [id number] [address] Oncology 09/15/17 documented as of this encounter
--- OUTSIDE RECORDS SUMMARY | 2024-05-26 12:41 | XMS_ITS | Encounter Summary ---
Author Organization [facility] Address [address] [place] [address] Care Team Providers Care Hplc Chemist Name Role Phone Etienne Florez MD Unavailable Enrique Gonzalez MD Unavailable [phone] Encounter Details Date Type Department Care Team (Late st Contact Info) Description 01/08/2018 Orders Only [facility] Medical [facility] [address] [facility], [facility] [address] [place] [address] [place] [address] [address] Social History Tobacco Use Types Packs/Day Years [...] 140/90 Blood Pressure 127/52(2022 8:09 AM PAPER REWINDER) No Alisa Jaramillo HEMOGLOBIN A1C < 7.0 Result Component 5.4( 12:00 AM CDT) No Alisa Jaramillo documented as of this encounter Visit Diagnoses Not on filedocumented in this encounter Care Teams Hplc Chemist Relationship Specialty Start Date End Date Etienne Florez MD Orthopedic Surgery 12/09/14 [place] [address] [address] Oncology 09/15/17 documented as of this encounter
--- OUTSIDE RECORDS SUMMARY | 2024-05-26 12:41 | XMS_ITS | Encounter Summary ---
Author Organization [facility] Address [address] [place] [address] Care Team Providers Care Farmworker Fur Name Role Phone Etienne Florez MD Unavailable Enrique Gonzalez MD Unavailable [phone] Reason for Visit * Reason Onset Date Comments Order 02/09/2018 Encounter Details Date Type Department Care Team (Late st Contact Info) Description 02/09/2018 Telephone [facility] - Family Medicine [address] [place] [address] [address] [place] [address] Jarrell Garrison MD [address] [facility] [address] [place] [address] Order Social History Tobacco Use Types Packs/Day [...] * Telephone Encounter - Rachel Estrada - 02/12/2018 1:36 PM CDT Pt was notified * Telephone Encounter - Jarrell Garrison MD - 02/09/2018 4:41 PM CDT Ordered. Please notify patient to get labs done Thank you * Telephone Encounter - Amie Kim - 02/09/2018 3:49 PM CDT Pt calls back to see if you can order the lab for her. The heart doctor can't order it until she isseen sometime in February. She will be going to [facility] documented in this encounter Plan of Treatment Not on file documented as of this encounter Goals Goal Patient Goal Type Associated Problems Recent Progress Patient-Stated? 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 8:09 AM COMPUTER GRAPHIC DESIGNER) No Alisa Jaramillo HEMOGLOBIN A1C < 7.0 Result Component 5.4( 12:00 AM CDT) No Alisa Jaramillo documented as of this encounter Procedures Procedure Name Priority Date/Time Associated Diagnosis Comments POTASSIUM BLOOD Routine 02/13/2018 2:27 PM CDT Encounter for monitoring diuretic therapy documented in this encounter Results * POTASSIUM BLOOD (02/13/2018 2:27 PM CDT) Potassium 4.0 3.5 - 5.3 mmol/L [facility] Comment: Test Performed at: [facility] [address] [address] [phone] ELIE HAMLIN DO,MPH Blood BLOOD SPECIMEN / Unknown 02/13/2018 2:27 PM CDT 02/13/2018 2:27 PM CDT Jarrell Garrison MD LAB - CHEMISTRY [facility] [place] [id number] [place] [address] documented in this encounter Visit Diagnoses Diagnosis Encounter for monitoring diuretic therapy- Primary Encounter for therapeutic drug monitoring documented in this encounter Care Teams Farmworker Fur Relationship Specialty Start Date End Date Etienne Florez MD Orthopedic Surgery 12/09/14 [place] [address] [address] Oncology 09/15/17 documented as of this encounter
--- OUTSIDE RECORDS SUMMARY | 2024-05-26 12:41 | XMS_ITS | Encounter Summary ---
Author Organization [facility] Address [address] [place] [address] Care Team Providers Care Battery Container Finishing Hand Name Role Phone Etienne Florez MD Unavailable [phone] Enrique Gonzalez MD Unavailable [phone] Encounter Details Date Type Department Care Team (Late st Contact Info) Description 03/04/2018 Orders Only [facility] Medical [facility] [address] [facility], [facility] [address] [place] [address] [place] [address] [facility] [address] [address] Social History Tobacco Use Types [...] as of this encounter Progress Notes * Sudheer Robbins RN - 03/04/2018 10:43 AM CDT Pt wanted medication to be sent to [facility]. documented in this encounter Plan of Treatment Not on file documented as of this encounter Goals Goal Patient Goal Type Associated Problems Recent Progress Patient-Stated? 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 8:09 AM MANAGER ENTRY) No Alisa Jaramillo HEMOGLOBIN A1C < 7.0 Result Component 5.4( 12:00 AM CDT) No Alisa Jaramillo documented as of this encounter Visit Diagnoses Not on filedocumented in this encounter Care Teams Battery Container Finishing Hand Relationship Specialty Start Date End Date Etienne Florez MD Orthopedic Surgery 12/09/14 [place] [address] [id number] Oncology 09/15/17 documented as of this encounter
--- OUTSIDE RECORDS SUMMARY | 2024-05-26 12:41 | XMS_ITS | Encounter Summary ---
Author Organization [facility] Address [address] [place] [address] Care Team Providers Care Detail Supervisor Name Role Phone Etienne Florez MD Unavailable [phone] Enrique Gonzalez MD Unavailable [phone] Reason for Visit * Reason Comments Refill Request Encounter Details Date Type Department Care Team (Late st Contact Info) Description 02/13/2018 Refill [facility] [address] [facility], [facility] [address] [place] [address] [place] [address] [address] Refill Request Social History Tobacco Use Types [...] < 140/90 Blood Pressure 127/52(2022 8:09 AM BLENDING KETTLE TENDER) No Alisa Jaramillo HEMOGLOBIN A1C < 7.0 Result Component 5.4( 12:00 AM CDT) No Alisa Jaramillo documented as of this encounter Visit Diagnoses Not on filedocumented in this encounter Care Teams Detail Supervisor Relationship Specialty Start Date End Date Etienne Florez MD Orthopedic Surgery 12/09/14 [place] [address] [address] Oncology 09/15/17 documented as of this encounter
--- OUTSIDE RECORDS SUMMARY | 2024-05-26 12:41 | XMS_ITS | Encounter Summary ---
Author Organization [facility] Health Address [address] [facility] [place] [address] Care Team Providers Care Newspaper Carrier Name Role Phone Etienne Florez MD Unavailable [phone] Enrique Gonzalez MD Unavailable [phone] Reason for Visit * Reason Comments Follow-up Encounter Details Date Type Department Care Team (Late st Contact Info) Description 02/16/2018 2:40 PM CDT Office Visit [facility] Health Neurosciences [address] [address] [place] [address] [facility] [place] [address] [place] [address] HSP (hereditary spastic paraplegia) (HCC) (Primary Dx) Social History Tobacco Use [...] Sign Reading Time Taken Comments Blood Pressure 132/60 02/16/2018 2:52 PM CDT Pulse 76 02/16/2018 2:52 PM CDT Temperature - - Respiratory Rate 14 02/16/2018 2:52 PM CDT Oxygen Saturation 96% 02/16/2018 2:52 PM CDT Inhaled Oxygen Concentration - - Weight 87.1 kg (192 lb) 02/16/2018 2:52 PM CDT Height 165.1 cm (5' 5 ) 02/16/2018 2:52 PM CDT Body Mass Index 31.95 02/16/2018 2:52 PM CDT documented in this encounter Functional [...] Instructions * Patient Instructions* Eva Sinha - 02/16/2018 3:26 PM CDT Call physician if symptoms worsen or with any questions. Take Medications as prescribed. For descriptions of a variety of neurological conditions please visit: [email or web address] CECILY ELIZABETH [address] [facility] [address] [place] [address] DESTINEY HOOPER [address] [facility] [address] [place] [address] documented in this encounter Progress Notes * Nelson Ross MD - 02/16/2018 3:10 PM CDT CC: HSP IH: Has some bowel issues. Has IBS. Walking is about the same. states slow. Using walker. Bladder is OK. Nocturia once. DM is better. Taken off insulin. No new stroke like events. Falls on occasion. Feels her memory is getting worse. Had diarrhea from Aricept Outpatient Prescriptions Marked as Taking for the 02/16/18 encounter (Office Visit) with Nelson Ross MD Medication Sig Dispense Refill ??? levothyroxine (SYNTHROID) 25 MCG tablet Take 25 mcg by mouth daily before breakfast ??? esomeprazole (NEXIUM) 40 MG capsule TAKE 1 CAPSULE DAILY 90 capsule 0 ??? LINZESS 290 MCG capsule TAKE 1 CAPSULE BY MOUTH EVERY DAY AT LEAST 30 MINUTES PRIOR TO BREAKFAST 30 capsule 11 ??? amitriptyline (ELAVIL) 25 MG tablet Take [...] 0.4-0.3 % ophth solution 1 drop ??? metOLazone (ZAROXOLYN) 2.5 MG tablet Take 2.5 mg by mouth every 7 days ??? menthol-zinc oxide (CALMOSEPTINE) 0.44-20.6 % ointment [...] 81 mg by mouth once daily ??? sitaGLIPtin (JANUVIA) 50 MG tablet Take [...] MCG TBCR Take by mouth once daily. ROS: Breast caner is gone. Thyroid is doing OK on replacement. Had a bx that Was negative Exam: BP 132/60 Pulse 76 Resp 14 Ht 1.651 m (5' 5 ) Wt 87.1 kg (192 lb) SpO2 96% BMI 31.95 kg/m2 Gait slow but OK with walker No bruits EOMS OK FTN OK Power OK Sensory OK Reflexes brisk Alert and oriented ASSESSMENT: HSP stable DM IBS Hx of stroke PLAN: Same meds Support 6 month OV documented in this encounter Plan of Treatment Not on file documented as of this encounter Goals Goal Patient Goal Type Associated Problems Recent Progress Patient-Stated? 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 8:09 AM LEAN MANUFACTURING ENGINEER) No Alisa Jaramillo HEMOGLOBIN A1C < 7.0 Result Component 5.4( 12:00 AM CDT) No Alisa Jaramillo documented as of this encounter Visit Diagnoses Diagnosis HSP (hereditary spastic paraplegia) (HCC)- Primary Hereditary spastic paraplegia documented in this encounter Care Teams Newspaper Carrier Relationship Specialty Start Date End Date Etienne Florez MD Orthopedic Surgery 12/09/14 [place] [address] [phone] Oncology 09/15/17 documented as of this encounter
--- OUTSIDE RECORDS SUMMARY | 2024-05-26 12:41 | XMS_ITS | Encounter Summary ---
Author Organization [facility] Address [address] [facility] [address] [place] [address] Care Team Providers Care Manager Alliance Name Role Phone Etienne Florez MD Unavailable Enrique Gonzalez MD Unavailable [phone] Encounter Details Date Type Department Care Team (Late st Contact Info) Description 11/17/2017 Orders Only [facility] Medical [facility] - Family Medicine [address] [place] [address] [address] [place] [address] Jarrell Garrison MD [address] [email or web address] [address] [place] [address] Stool color black Social History Tobacco Use Types Packs/Day Years [...] < 140/90 Blood Pressure 127/52(2022 8:09 AM RETAIL ASSET PROTECTION SPECIALIST) No Alisa Jaramillo HEMOGLOBIN A1C < 7.0 Result Component 5.4( 12:00 AM CDT) No Alisa Jaramillo documented as of this encounter Visit Diagnoses Diagnosis Stool color black- Primary Nonspecific abnormal finding in stool contents documented in this encounter Care Teams Manager Alliance Relationship Specialty Start Date End Date Etienne Florez MD Orthopedic Surgery 12/09/14 [place] [address] [address] Oncology 09/15/17 documented as of this encounter
--- OUTSIDE RECORDS SUMMARY | 2024-05-26 12:41 | XMS_ITS | Encounter Summary ---
Author Organization [facility] Address [address] [place] [address] Care Team Providers Care Burlap Man Name Role Phone Etienne Florez MD Unavailable [phone] Enrique Gonzalez MD Unavailable [phone] Reason for Visit * Reason Onset Date Comments MEDICATION REFILL 02/09/2018 Encounter Details Date Type Department Care Team (Late st Contact Info) Description 02/09/2018 Refill [facility] Medical [facility] - Family Medicine [address] [place] [address] [address] [place] [address] Jarrell Garrison MD [address] [facility] [address] [place] [address] MEDICATION REFILL Social History Tobacco Use Types [...] * Telephone Encounter - Rachel Estrada - 02/09/2018 3:16 PM CDT Spoke with the pt to inform her that is leaving the practice and we will need to pamela appt. Pt states that her and her are not able to make any appts for next week. They have otherproviders to see. Please sign pt rx. Requested Prescriptions Pending Prescriptions Disp Refills ??? amitriptyline (ELAVIL) 25 MG tablet 180 tablet 1 Sig: Take 2 tablets by mouth at bedtime ??? anastrozole (ARIMIDEX) 1 MG tablet 90 tablet 1 Sig: Take 1 tablet by mouth once daily ??? empagliflozin (JARDIANCE) 10 MG tablet 90 tablet 1 Sig: Take 1 tablet by mouth once daily ??? clopidogrel (PLAVIX) 75 MG tablet 90 tablet 1 Sig: Take 1 tablet by mouth at bedtime ??? potassium chloride (KLOR-CON 10) 10 MEQ tablet 360 tablet 1 Sig: The patient should only Take 4 tabs with breakfast documented in this encounter Plan of Treatment Not on file documented as of this encounter Goals Goal Patient Goal Type Associated Problems Recent Progress Patient-Stated? 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 8:09 AM APPOINTMENT SETTER) No Alisa Jaramillo HEMOGLOBIN A1C < 7.0 Result Component 5.4( 12:00 AM CDT) No Alisa Jaramillo documented as of this encounter Visit Diagnoses Not on filedocumented in this encounter Care Teams Burlap Man Relationship Specialty Start Date End Date Etienne Florez MD Orthopedic Surgery 12/09/14 [place] [address] [phone] Oncology 09/15/17 documented as of this encounter
--- OUTSIDE RECORDS SUMMARY | 2024-05-26 12:41 | XMS_ITS | Encounter Summary ---
Author Organization [facility] Address [address] [facility] [place] [address] Care Team Providers Care Business Development Analyst Name Role Phone Etienne Florez MD Unavailable Enriuqe Gonzalez MD Unavailable [phone] Theresa Camargo MD Primary Care Provider Nelson Ross MD Unavailable Laz Valencia MD Unavailable Russell Moran MD Unavailable [phone] Yuliya Ibarra MD Unavailable Phuong Callejas DPM Unavailable Sy Barrientos MD Unavailable Russell Moran MD Unavailable [phone] Rico Gasca MD Unavailable Elle Landaverde MD Unavailable [phone] Kirk Truong MD Unavailable [phone] Shira Love DO Unavailable [phone] Reason for Visit * Reason Onset Date Comments Concerns 04/17/2018 Encounter Details Date Type Department Care Team (Late st Contact Info) Description 04/17/[address] [facility] Health Neurosciences [address] [facility] [address] [place] [address] [place] [address] [facility] [address] [place] [address] Concerns Social History Tobacco Use [...] * Telephone Encounter - Nikki Wan - 08/20/2018 4:28 PM CDT Patient has been seen in the office and concerns addressed. * Telephone Encounter - Nikki Wan - 04/17/2018 11:17 AM CST Received a call from the patient's daughter (Bekah Gordon) who is listed on the HIPAA. Since the last time the patient was seen in February the patient is now home jin due to medication she was givenby the cancer doctor to help relieve the constipation. States the cancer doctor has stopped the medication but feels its more neuro related and to contact your office. States she is not sure what to do because she is weak and unable to really do anything. Please advise ILING MACHINE SET UP OPERATOR documented in this encounter Plan of Treatment Not on file documented as of this encounter Goals Goal Patient Goal Type Associated Problems Recent Progress Patient-Stated? 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 8:09 AM PROFILING MACHINE SET UP OPERATOR) No Alisa Jaramillo HEMOGLOBIN A1C < 7.0 Result Component 5.4( 12:00 AM CDT) No Alisa Jaramillo documented as of this encounter Visit Diagnoses Not on filedocumented in this encounter Care Teams Business Development Analyst Relationship Specialty Start [place] [address] [facility] [address] [place] [address] PCP - General Internal Medicine 03/31/18 05/30/22 Etienne Florez MD Orthopedic Surgery 12/09/14 [place] [address] [address] Oncology 09/15/17 [place] [address] [phone] Neurology 06/26/18 [place] [address] [facility] [address] [place] [address] Cardiovascular Disease 06/26/18 [place] [address] [id number] Pulmonary Disease 06/26/18 Yuliya Ibarra MD [address] [place] [address] Endocrinology 06/26/18 Phuong Callejas DPM [address] [place], [place] [phone] Podiatry 06/26/18 Sy Barrientos MD [address] [place] [address] [place] [address] Ophthalmology 06/26/18 [place] [address] [id number] Pulmonary Disease 06/26/18 Rico Gasca MD [address] [place] [address] Urology 06/26/18 Elle Landaverde MD [address] [place] [address] Vascular Surgery 06/26/18 Kirk Truong MD [address] [place] [address] Gastroenterology 06/26/18 [place] [address] [place] [address] [place] [phone] General Surgery 06/26/18 documented as of this encounter
--- OUTSIDE RECORDS SUMMARY | 2024-05-26 12:41 | XMS_ITS | Encounter Summary ---
Author Organization [facility] Health Address [address] [facility] [place] [address] Care Team Providers Care Youth Corrections Officer Name Role Phone Etienne Florez MD Unavailable Enrique Gonzalez MD Unavailable [phone] Encounter Details Date Type Department Care Team (Latest Contact Info) Description 11/25/2017 1:00 PM CDT - 11/25/2017 11:59 PM CDT Hospital Encounter [facility] [address] [place] [address] Adan Lao MD Waldman, Laura M, [address] [place] [phone] Discharge Disposition: Home or Self Care Social [...] tab with lunch, 2.5 with dinner. 04/13/2019 HYDROcodone-acetaminop hen (NORCO) 5-325 MG tablet Take 1 tablet by mouth every 6 hours as needed for Pain 12 tablet 09/08/2017 12/23/2017 HYDROcodone-acetaminop hen (NORCO) 5-325 MG tablet Take 1 tablet by mouth every 6 hours as needed for Pain 20 tablet 08/25/2017 12/23/2017 hydroxypropyl methylcellulose 0.3% (SYSTANE OVERNIGHT THERAPY) 0.3 % ophthalmic gel Instill 1 Drop into both eyes nightly as needed for Dry Eyes 09/14/2020 insulin detemir (LEVEMIR) vial Inject 6 Units subcutaneously at bedtime 06/26/2018 latanoprost (XALATAN) 0.005 % ophthalmic solution Instill 1 drop into both eyes at bedtime 09/14/2020 lubiprostone (AMITIZA) 24 MCG capsule Take 1 capsule by mouth daily with breakfast 90 capsule 10/22/2017 12/23/2017 menthol-zinc oxide (CALMOSEPTINE) 0.44-20.6 % ointment Apply to affected area as needed for Other 09/14/2020 metOLazone (ZAROXOLYN) 2.5 MG tablet Take 1 tablet by mouth twice a week on Friday and 05/30/2022 polyethyl glycol-propyl glycol (SYSTANE) 0.4-0.3 % ophth solution Instill 1 drop into both eyes once as needed 09/14/2020 potassium chloride (KLOR-CON 10) 10 MEQ tablet [...] as of this encounter Progress Notes * Norah Ana M, GC - 11/25/2017 11:59 PM CDT Images from the original note were not included. 12/01/2017 PATIENT NAME: Perla Leon : 1940 DATE SEEN: 11/25/17 SITE: [facility] Dear Dr. Love; Thank you for referring Perla Leon for genetic counseling. She was accompanied by her and her daughter, Ange. Please see below for summary of the assessment. 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 She elected not to undergo radiation therapy. She is currently on Arimidex. Her mother from breast cancer at 54, a niece and a maternal first cousin had breast cancer at 49/50, and a maternal aunt had colon cancer. Medical History: Menarche occurred at 13 years of age. She is G3,P3 and had her first child at age 17. She underwenta hysterectomy in 1985 for menorrhagia. She reports that she also had a bilateral oophorectomy at that time. She states that she has a history of colon polyps and that her last colonoscopy was in 2011. She isto soon see a registered respiratory therapist for evaluation of dark stools. She recently underwent a thyroid biopsy. Additional medical history includes familial spastic paraplegia, atrial fibrillation, and TIA's Family History: Pedigree at end of note and scanned into [employer] under Media. - mother from breast cancer at 54 - niece Nadja (brother's daughter) was diagnosed breast cancer at 49/50. She has not had genetic testing. - maternal aunt had colon cancer at unknown age - maternal first cousin, Ange, had breast cancer at 49/50; no known genetic testing - paternal aunt from stomach cancer at 65. There are no other known relatives with malignancies Maternal ancestry: [place] Paternal ancestry: [place] There is no known Evangelical ancestry. Assessment/Genetic Counseling Perla meets NCCN guidelines for BRCA1/2 testing based on her history of breast cancer and having aniece, mother, and maternal first cousin with breast cancer.Testing for mutations in other genes including PALB2, ANGELA and CHEK2 is also indicated. We discussed the pros and cons of multi-gene testing. The results of genetic testing could help to clarify her risk for a second breast cancer and risk for other cancers. If she tests positive for a specific gene mutation then her daughters and other family members could be tested for that same mutation. Limitations of multi-gene testing panels include: uncertainty regarding level of risk and current lack of medical management guidelines for some of the included genes as well as an increased chance of identifying variants of uncertain significance. Additionally, there is a risk for unanticipated results - such as a TP53 mutation in a patient whose personal and family history was not indicati ve of Li-Fraumeni syndrome. We discussed that the Genetic Information Nondiscrimination Act (GINI) is federal legislation that prohibits health insurance and employment discrimination on the basis of genetic information or a genetic test result. GINI does not cover life, disability, or assisted care insurance. 65 minutes were spent with her, 75% of the time was spent on education and counseling. She was provided with information about multi-gene testing panels. Plan: 1. She elected multi-gene panel testing. However, she was unable to submit a saliva sample. The genetic testing lab ([facility]) will arrange for blood sample to be sent via in-home phlebotomy service at no-charge. Turn around time for results is about three weeks once sample is received. Additional genetic counseling will be provided pending results. Thank you again for referring this pleasant woman for genetic counseling. Please contact me at [phone] should you have questions about this assessment. Best regards, Ana Almazan MS, [facility] Naheed Chin MD Division of Medical Genetics Division of Medical Genetics [facility] documented in this encounter Plan of Treatment Not on file documented as of this encounter Goals Goal Patient Goal Type Associated Problems Recent Progress Patient-Stated? 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 8:09 AM INSTRUMENT MAINTENANCE SUPERVISOR) No Alisa Jaramillo HEMOGLOBIN A1C < 7.0 Result Component 5.4(07/23/202 1 12:00 AM CDT) No Alisa Jaramillo documented as of this encounter Visit Diagnoses Not on filedocumented in this encounter Care Teams Youth Corrections Officer Relationship Specialty Start Date End Date Etienne Florez MD Orthopedic Surgery 12/09/14 [place] [address] [address] Oncology 09/15/17 documented as of this encounter
--- OUTSIDE RECORDS SUMMARY | 2024-05-26 12:41 | XMS_ITS | Encounter Summary ---
Author Organization [facility] Address [address] [facility] [place] [address] Care Team Providers Care Hydrotreater Operator Name Role Phone Etienne Florez MD Unavailable [phone] Enrique Gonzalez MD Unavailable [phone] Reason for Visit * Reason Onset Date Comments LABS ONLY 02/09/2018 Encounter Details Date Type Department Care Team (Late st Contact Info) Description 02/09/2018 Telephone [facility] - Family Medicine [address] [place] [address] [address] [place] [address] Jarrell Garrison MD [address] [facility] [address] [place] [address] LABS ONLY Social History Tobacco Use Types [...] < 140/90 Blood Pressure 127/52(2022 8:09 AM WATCH CASER) No Alisa Jaramillo HEMOGLOBIN A1C < 7.0 Result Component 5.4( 12:00 AM CDT) No Alisa Jaramillo documented as of this encounter Visit Diagnoses Not on filedocumented in this encounter Care Teams Hydrotreater Operator Relationship Specialty Start Date End Date Etienne Florez MD Orthopedic Surgery 12/09/14 [place] [address] [address] Oncology 09/15/17 documented as of this encounter
--- OUTSIDE RECORDS SUMMARY | 2024-05-26 12:41 | XMS_ITS | Encounter Summary ---
Author Organization [facility] Health Address [address] [facility] [place] [address] Care Team Providers Care Credit Card Control Clerk Name Role Phone Etienne Florez MD Unavailable [phone] Enrique Gonzalez MD Unavailable [phone] Reason for Referral * Radiology Services (Routine) - Closed Specialty Diagnoses / Procedures Referred By Contac t Referred To Contact CT Scan Diagnoses Inguinal hernia without obstruction or gangrene, recurrence not specified, unspecified laterality Procedures CT [place] [address] [facility] [address] [place] [address] [facility] [address] [address] Referral ID Status Reason Start Date Expiration Date Visits Re quested Visits Authorized [id number] Closed 12/09/2017 06/07/2018 1 1 Reason for Visit * Reason Comments Evaluation umbilical hernia Encounter Details Date Type Department Care Team (Late st Contact Info) Description 12/09/2017 1:50 PM CDT Office Visit [facility] - Surgery [address] [facility], [address] [place] [address] [place] [address] [facility] [address] [place] [address] Umbilical hernia without obstruction and without gangrene (Primary Dx); Inguinal hernia without obstruction or gangrene, recurrence not specified, unspecified laterality; Diverticulitis of colon; Anemia, unspecified type Social History Tobacco Use Types [...] - Inhaled Oxygen Concentration - - Weight 95.7 kg (211 lb) 12/09/2017 2:11 PM CDT Height 165.1 cm (5' 5 ) 12/09/2017 2:11 PM CDT Body Mass Index 35.11 12/09/2017 2:11 PM CDT documented in this [...] Instructions * Patient Instructions* Harmeet Flores - 12/09/2017 2:15 PM CDT Patient's medications and allergies were reviewed with the patient today. Patient was instructed tocontact primary care physician or ordering provider with any questions regarding medications. Recommend high fiber diet 25-30 grams per day. Plenty of water intake 6-8 8oz glasses per day. Promote healthy bowel habits; take MiraLax daily to have a bowel movement and prevent constipation.You may take Colace (or a stool softener) if you have bowel movements daily but have issues with straining. Follow up in office as scheduled, call if any questions or concerns. documented in this encounter Progress Notes * Shira Love DO - 12/09/2017 2:57 PM CDT Chief Complaint: Umbilical hernia History and Physical: Perla Leon is a 77 y.o. female who is referred by Jarrell Garrison MD for evaluation of umbilical hernia and she is well known to me due to her previous left breast cancer.. The patient states she hadan umbilical hernia repair several years ago. She reports a bulge in the abdomen. She states she iseating well. She report chronic issues with constipation. She states she normally only moves her bowels once a week. She reports black tarry stool at times over the past month. She also reports drainage from the right leg. She has lymphedema pumps at home she does not use routinely. She does wear compression stocking daily with 20-30 mm Hg. She reports she has been doing well since her left breast excisional biopsy and continues to follow with Dr. Gonzalez. Past Medical History: Diagnosis Date ??? Asthma [...] AND LT ARM ??? THYROID NEEDLE BIOPSY Outpatient Prescriptions Marked as Taking for the 12/09/17 encounter (Office Visit) with Shira Love, DO Medication Sig Dispense Refill ??? esomeprazole (NEXIUM) 40 MG capsule Take 1 capsule by mouth once daily 90 capsule 0 ??? calcium carbonate-vitamin D (CALTRATE 600+D) 600-400 MG-UNIT tablet Take 1 tablet by mouth 2 times daily 60 tablet ??? rosuvastatin (CRESTOR) 10 MG tablet Take 1 tablet by mouth at bedtime 90 tablet 3 ??? lubiprostone (AMITIZA) 24 MCG capsule Take 1 capsule by mouth daily with breakfast 90 capsule 0 ??? polyethyl glycol-propyl glycol (SYSTANE) 0.4-0.3 [...] mouth at bedtime 90 tablet 2 ??? HYDROcodone-acetaminophen (NORCO) 5-325 MG tablet Take 1 tablet by mouth every 6 hours as needed for Pain 12 tablet 0 ??? HYDROcodone-acetaminophen (NORCO) 5-325 MG tablet Take 1 tablet by mouth every 6 hours as needed for Pain 20 tablet 0 ??? metOLazone (ZAROXOLYN) 2.5 MG tablet Take 2.5 mg by mouth every 7 days ??? amitriptyline (ELAVIL) 25 MG tablet Take 2 tablets by mouth at bedtime 180 tablet 3 ??? menthol-zinc oxide (CALMOSEPTINE) 0.44-20.6 % ointment [...] MCG TBCR Take by mouth once daily. Allergies Allergen Reactions ??? Advair Diskus YEAS INFECTION ??? Aricept [Donepezil] Other I dont remember ??? Diltiazem Swelling ??? Metformin Diarrhea ??? Fluticasone Diarrhea ??? Piper Longum ??? Salmeterol Diarrhea ??? Sotalol Other Hair loss Family History Problem Relation Age of Onset ??? Cancer - Breast Mother ??? Coronary Artery Disease Father CHF ??? Coronary Artery Disease Brother CHF Social History Substance Use Topics ??? Smoking status: Never Smoker ??? Smokeless tobacco: Never Used ??? Alcohol use No Review of Systems General: No fatigue or weight loss Eyes: No vision changes or pain Neuro: No mental status changes or dizziness Cardiovascular: No chest pain or palpitations Pulmonary: No shortness of breath or wheezing. GI: Complains of bulge in abdomen and chronic constipation Musculoskeletal: No muscle pain or joint pain. Complains of bilateral leg swelling and drainage from right leg. Skin: Edema lower extremities Hematologic: No easy bruising or bleeding Rectal: No rectal bleeding or pain Physical Examination: Constitutional: Vital signs are stable and the patient is no acute distress. Eyes: Reveal no icterus. Neck: Neck is supple without JVD or bruit. Respiratory: Lungs are clear. Cardiovascular: Regular rate and rhythm. GI: Abdomen is protuberant and non tender, no large palpable abnormality although her abdomen is obese Musculoskeletal: All four extremities are warm and well perfused. 2+ pitting edema to bilateral lower extremities. Neurologic: Intact. Impression/Plan: Chronic constipation Chronic lymphedema, bilateral lower extremity edema History left breast cancer Abdominal hernia Change in bowel movements I discussed physical exam findings as well as treatment plan with the patient, all questions were answered. I first discussed her concern for umbilical hernia, her abdomen is quite protuberant. Will plan for CT of the abdomen and pelvis to further evaluate and may use conservative measures as she is not symptomatic from her hernia. She reports chronic issues with constipation. For this I have recommended Miralax daily. She may use stool softners as needed and, we discussed the difference between miralax and stool softners in detail. She reports black tarry stools for which I have referred her to Dr. Truong an ordered a CBC. Shemay need an EGD and colonoscopy. Lastly we discussed her chronic venous stasis. I have encouraged her to use her lymphedema pumps daily. She does wear compression stockings but her stockings do not have the correct pressure as she is unable to get the correct stockings on. I have ordered compression wraps for her legs she will be able to apply herself with the correct prescription for her. She will see Dr. Truong this week and I will call her with her CT results. She will follow up in my office in 1 month. She will call and come in sooner if issues arise. documented in this encounter Plan of Treatment Not on file documented as of this encounter Goals Goal Patient Goal Type Associated Problems Recent Progress Patient-Stated? 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 8:09 AM CURRICULUM COUNSELOR) Alisa Ware HEMOGLOBIN A1C < 7.0 Result Component 5.4( 12:00 AM CDT) No Alisa Jaramillo documented as of this encounter Procedures Procedure Name Priority Date/Time Associated Diagnosis Comments CBC W AUTO DIFFERENTIAL Routine 12/09/2017 3:45 PM CDT Anemia, unspecified type documented in this encounter Results * CT ABDOMEN PELVIS W CONTRAST (12/17/2017 [...] PM Shira Love DO CT ORDERABLES * (ABNORMAL) CBC W AUTO DIFFERENTIAL (12/09/2017 3:45 PM CDT) WBC 7.5 3.4 - 10.8 x10E3/uL [facility] INSURANCE BILL RBC 4.75 3.77 - 5.28 x10E6/uL [facility] INSURANCE BILL Hemoglobin 11.0(L) 11.1 - 15.9 g/dL [facility] INSURANCE BILL Hematocrit 36.4 34.0 - 46.6 % [facility] INSURANCE BILL MCV 77(L) 79 - 97 fL [facility] INSURANCE BILL MCH 23.2(L) 26.6 - 33.0 pg [facility] INSURANCE BILL MCHC 30.2(L) 31.5 - 35.7 g/dL [facility] INSURANCE BILL RDW 19.3(H) 12.3 - 15.4 % [facility] INSURANCE BILL Platelet Count 326 150 - 379 x10E3/uL [facility] INSURANCE BILL Granulocytes % 63 Not Estab. % [facility] INSURANCE BILL Lymphocytes % 25 Not Estab. % [facility]URANCE BILL Monocytes % 9 Not Estab. % [facility] INSURANCE BILL Eosinophils % 3 Not Estab. % [facility] INSURANCE BILL Basophils % 0 Not Estab. % [facility] INSURANCE BILL Immature Cells NOT NEEDED [facility] INSURANCE BILL Comment:Ancillary determined the test is not needed Granulocytes Absolute 4.6 1.4 - 7.0 x10E3/uL [facility] INSURANCE BILL Lymphocytes Absolute 1.9 0.7 - 3.1 x10E3/uL [facility] INSURANCE BILL Monocytes Absolute 0.7 0.1 - 0.9 x10E3/uL [facility] INSURANCE BILL Eosinophils Absolute 0.2 0.0 - 0.4 x10E3/uL [facility] INSURANCE BILL Basophils Absolute 0.0 0.0 - 0.2 x10E3/uL [facility] INSURANCE BILL Immature Granulocytes 0 Not Estab. % [facility] INSURANCE BILL Immature Granulocytes Absolute 0.0 0.0 - 0.1 x10E3/uL [facility] INSURANCE BILL nRBC NOT NEEDED [facility] INSURANCE BILL Comment:Ancillary determined the test is not needed Comment Hematology NOT NEEDED [facility] INSURANCE BILL Comment:Ancillary determined the test is not needed Blood BLOOD SPECIMEN / Unknown 12/09/2017 3:45 PM CDT 12/09/2017 Narrative Resulting Agency Comment [facility] [address] [facility] [id number] Aruna Bonilla WASH PLANT OPERATOR-SAUSAGE MACHINE OPERATOR LAB - HEMATOLOGY ORDERABLES [facility] INSURANCE BILL [address] [place] [address] documented in this encounter Visit Diagnoses Diagnosis Umbilical hernia without obstruction and without gangrene- Primary Inguinal hernia without obstruction or gangrene, recurrence not specified, unspecified laterality Diverticulitis of colon Diverticulitis of colon (without mention of hemorrhage) Anemia, unspecified type Inguinal hernia without obstruction or gangrene, recurrence not specified, unspecified laterality documented in this encounter Care Teams Credit Card Control Clerk Relationship Specialty Start Date End Date Etienne Florez MD Orthopedic Surgery 12/09/14 [place] [id number] [address] Oncology 09/15/17 documented as of this encounter
--- OUTSIDE RECORDS SUMMARY | 2024-05-26 12:41 | XMS_ITS | Encounter Summary ---
Author Organization [facility] Address [address] [facility] [place] [address] Care Team Providers Care Sample Tester Grinder Name Role Phone Etienne Florez MD Unavailable [phone] Enrique Gonzalez MD Unavailable [phone] Reason for Referral * Radiology Services (Routine) - Closed Specialty Diagnoses / Procedures Referred By Contac t Referred To Contact CT Scan Diagnoses Inguinal hernia without obstruction or gangrene, recurrence not specified, unspecified laterality Procedures CT [place] [address] [facility] [address] [place] [address] [facility] [address] [address] Referral ID Status Reason Start Date Expiration Date Visits Re quested Visits Authorized [id number] Closed 12/09/2017 06/07/2018 1 1 Reason for Visit * Radiology Services (Routine) - Closed Specialty Diagnoses / Procedures Referred By Contac t Referred To Contact CT Scan Diagnoses Inguinal hernia without obstruction or gangrene, recurrence not specified, unspecified laterality Procedures CT [place]EN [place] [address] [address] [place] [address] [facility] [address] [address] Referral ID Status Reason Start Date Expiration Date Visits Re quested Visits Authorized [id number] Closed 12/09/2017 06/07/2018 1 1 Encounter Details Date Type Department Care Team (Latest Contact Info) Description 12/17/2017 9:11 AM CDT - 12/17/2017 11:59 PM CDT Hospital Encounter [facility] Health Imaging Services - CT Scan [address] [address] [place] [address] [address] [place] [address] Discharge Disposition: Home or Self Care [...] < 140/90 Blood Pressure 127/52(2022 8:09 AM FOREIGN EXCHANGE DEALER) No Alisa Jaramillo HEMOGLOBIN A1C < 7.0 Result Component 5.4( 12:00 AM CDT) No Alisa Jaramillo documented as of this encounter Procedures Procedure Name Priority Date/Time Associated Diagnosis Comments CT ABDOMEN PELVIS W CONTRAST Routine 12/17/2017 10:22 AM CDT Inguinal hernia without obstruction or gangrene, recurrence not specified, unspecified laterality documented in this encounter Results * CT [...] 12:[address] ORDERABLES documented in this encounter Visit Diagnoses Diagnosis Inguinal hernia without obstruction or gangrene, recurrence not specified, unspecified laterality documented in this encounter Administered Medications Inactive Administered Medications - up to 3 most recent administrations Medication Order MAR Action Action Date Dose Rate Site iohexol (OMNIPAQUE 350) contrast Oral, CONTRAST ONCE, Starting on Fri12/17/17 at 1021, Until Magali 12/18/17 at 0153 $ Given - Contrast 12/17/2017 10:21 AM CDT 50 mL iohexol (OMNIPAQUE 350) contrast Intravenous, CONTRAST ONCE, Starting on Fri12/17/17 at 1021, Until Magali 12/18/17 at 0153 $ Given - Contrast 12/17/2017 10:21 AM CDT 80 mL Right Arm documented in this encounter Care Teams Sample Tester Grinder Relationship Specialty Start Date End Date Etienne Florez MD Orthopedic Surgery 12/09/14 [place] [id number] [address] Oncology 09/15/17 documented as of this encounter
--- OUTSIDE RECORDS SUMMARY | 2024-05-26 12:41 | XMS_ITS | Encounter Summary ---
Author Organization [facility] Address [address] [place] [address] Care Team Providers Care Hunter Guide Name Role Phone Etienne Florez MD Unavailable Enrique Gonzalez MD Unavailable [phone] Reason for Visit * Reason Onset Date Comments Results 01/14/2018 Encounter Details Date Type Department Care Team (Late st Contact Info) Description 01/14/2018 Telephone [facility] - Family Medicine [address] [place] [address] [address] [place] [address] Jarrell Garrison MD [address] [facility] [address] [place] [address] Results Social History Tobacco Use Types Packs/Day [...] encounter Miscellaneous Notes * Telephone Encounter - Jarrell Garrison MD - 02/09/2018 3:28 PM CDT I called and spoke to patient about potassium results. She will take extra potassium. Will recheck potassium level in cardiology office * Telephone Encounter - Amie Kim - 01/14/2018 12:17 PM CDT Pt had Potassium done this morning at DR Gonzalez office. it was 3.2 Patient is currently taking Potas 10 meq, 4 daily. documented in this encounter Plan of Treatment Not on file documented as of this encounter Goals Goal Patient Goal Type Associated Problems Recent Progress Patient-Stated? 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 8:09 AM PAPER SPOOLER) No Alisa Jaramillo HEMOGLOBIN A1C < 7.0 Result Component 5.4( 12:00 AM CDT) No Alisa Jaramillo documented as of this encounter Visit Diagnoses Not on filedocumented in this encounter Care Teams Hunter Guide Relationship Specialty Start Date End Date Etienne Florez MD Orthopedic Surgery 12/09/14 [place] [address] [address] Oncology 09/15/17 documented as of this encounter
--- OUTSIDE RECORDS SUMMARY | 2024-05-26 12:41 | XMS_ITS | Encounter Summary ---
Author Organization [facility] Address [address] [facility] [place] [address] Care Team Providers Care Tenant Coordinator Name Role Phone Etienne Florez MD Unavailable Enrique Gonzalez MD Unavailable [phone] Reason for Visit * Auth/Cert Specialty Diagnoses / Procedures Referred By Contac t Referred To Contact Procedures ESOPHAGOGASTRODUODENOSCOPY (EGD) DIAGNOSTIC Referral ID Status Reason Start Date Expiration Date Visits Re quested Visits Authorized [id number] 1 1 Encounter Details Date Type Department Care Team (Latest Contact Info) Description 12/23/2017 1:00 PM CDT - 12/23/2017 1:30 PM CDT Surgery [facility] [address] [place] [address] [place] [address] [facility] [place] [address] ESOPHAGOGASTRODUODENOSCOPY (EGD) DIAGNOSTIC WITH BIOPYS AND OR POLYPECTOMY Surgery Details Date/Time Status Location OR Service Patient Class Case Class Case Type Trauma Case? 12/23/2017 1:00 PM Posted [facility] 02 Gastroenterology Surgery Day Care Elective > 5 days Panel 1 Procedure LRB Anes Op Region Wound Class Comments ESOPHAGOGASTRODUODENOSCOPY ( EGD) DIAGNOSTIC WITH BIOPYS AND OR POLYPECTOMY MAC Clean Contaminated Surgeon Surgeon Role [...] Sign Reading Time Taken Comments Blood Pressure 177/79 12/23/2017 1:30 PM CDT Pulse 81 12/23/2017 1:30 PM CDT Temperature 36 ??C (96.8 ??F) 12/23/2017 1:15 PM CDT Respiratory Rate 20 12/23/2017 1:30 PM CDT Oxygen Saturation 91% 12/23/2017 1:30 PM CDT Inhaled Oxygen Concentration - - [...] < 140/90 Blood Pressure 127/52(2022 8:09 AM INSTRUCTIONAL TECHNOLOGY SPECIALIST) No Alisa Jaramillo HEMOGLOBIN A1C < [...] Case Report Surgical Pathology Report ? Case: [id number] ? Authorizing Provider: ??Kirk Truong MD ? Collected: ? 12/23/2017 01:10 PM ? Ordering Location: ? [facility] ?Received: ?12/23/2017 01:29 PM ? Pathologist: ? Femi Carbajal MD ? Specimen: ?Duodenal Biopsy ? 12/24/2017 3:26 PM CDT [facility] Final Diagnosis 1. Duodenal biopsy: -- No pathologic diagnosis AB/scs 12/24/2017 3:26 PM CDT [facility] Gross Description Received in formalin labeled with the patient's name and duodenal biopsy are five pieces of ayala tissue ranging in size from less than 0.1 x 0.1 up to 0.3 x 0.2 cm. Stained and submitted in A1. AB/wv 12/24/2017 3:26 PM CDT [facility] Microscopic Description The duodenal biopsies show normal small bowel mucosa with tall villi. No significant inflammation is seen. No pathogenic microorganisms are detected. AB/[facility] 12/24/2017 3:26 PM CDT [facility] Disclaimer All histochemical and/or immunohistochemical results [...] high complexity testing. 12/24/2017 3:26 PM CDT [facility] Embedded Images 12/24/2017 3:26 PM CDT [facility] Pathology/Cytolo gy DUODENAL BIOPSY SPECIMEN / Unknown 12/23/2017 1:10 PM CDT 12/23/2017 1:29 PM CDT Kirk Truong MD LAB - PATHOLOGY/CYT OLOGY ORDERABLES [facility] [address] [place] [address] * EGD (12/23/2017 12:43 PM [...] the physician, the ? nurse and the salesperson recreational vehicles in the procedure room. Mental ? Status [...] Procedure Code(s): ? --- Professional --- ? 20069, Esophagogastroduode noscopy, flexible, transoral; with biopsy, ? single or multiple ? --- Technical --- ? 11961, Esophagogastroduode noscopy, flexible, transoral; with biopsy, ? single or multiple Diagnosis Code(s): ? --- Professional --- ? 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 D50.9, Iron deficiency anemia, unspecified ? K92.1, Melena (includes Hematochezia) ? --- Technical --- ? 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 D50.9, Iron deficiency anemia, unspecified ? K92.1, Melena (includes Hematochezia) CPT copyright 2015 [employer]. All rights reserved. The codes documented in this report are preliminary and upon hose cementer review may be revised to meet current compliance requirements. Dr. Kirk Truong MD ____ Kirk Truong MD 12/23/2017 1:13:17 PM This report has been signed electronically. Number of Addenda: 0 Note Initiated On: 12/23/2017 12:43 PM [facility] 12/23/2017 12:4 3 PM CDT Kirk Truong MD GI PROCEDURE ORDERA AXEL [facility] Organization Address City/State/ZIP Co de Phone Number [facility] [place] [address] documented in this encounter Visit Diagnoses Not [...] 3 mL, Intracatheter, PRE-PROCEDURE MULTIPLE, Starting on 12/23/18 at 1257, Until 12/23/17 at 1448, For [...] Garcia) documented in this encounter Care Teams Tenant Coordinator Relationship Specialty Start Date End Date Etienne Florez MD Orthopedic Surgery 12/09/14 [place] [address] [address] Oncology 09/15/17 documented as of this encounter
--- OUTSIDE RECORDS SUMMARY | 2024-05-26 12:41 | XMS_ITS | Encounter Summary ---
Author Organization [facility] Address [address] [facility] [place] [address] Care Team Providers Care Pl Sql Programmer Name Role Phone Etienne Florez MD Unavailable Enrique Gonzalez MD Unavailable [phone] Reason for Visit * Auth/Cert Specialty Diagnoses / Procedures Referred By Contac t Referred To Contact Procedures ESOPHAGOGASTRODUODENOSCOPY (EGD) DIAGNOSTIC Referral ID Status Reason Start Date Expiration Date Visits Re quested Visits Authorized [id number] 1 1 Encounter Details Date Type Department Care Team (Late st Contact Info) Description 12/23/2017 1:00 PM CDT Anesthesia Event [facility] [address] [place] [address] [place] [address] [place] [address] Gail Shea, CYLINDER VALVE REPAIRER-BENCH EXAMINER [address] [facility] [address] [place] [address] Anesthesia Record Procedure Summary Procedure Name Responsible Anesthesiologist Anesthesia Start Time Anesthesia Stop Time ESOPHAGOGASTRODUODENOSCOPY ( EGD) DIAGNOSTIC WITH BIOPYS AND OR POLYPECTOMY Eyad Tello MD 12/23/17 1300 12/23/17 1320 Events Date Time Event Comment 12/23/2017 1300 An Start 1300 Out OR Start Data 1303 PT Reassessment 1304 1304 Timeout Anesthesia part icipated in timeout at the time documented in the record by nursing. 1313 Electnc Sig 1313 Out OR Stop Data 1320 An Stop Meds Name Total lidocaine 2% (PF) injection (20 mg/mL) 1 00 mg benzocaine (topical) 20% spray 1 Each propofol (DIPRIVAN) injection 10mg/ml (E NDO USE) 8 mL 0.9% NaCl infusion 250 mL * Agents Name O2 * Blood No blood administrations on file. Lines, Drains, and Airways Type Details Placement Removal Peripheral IV Date: 12/23/17; Time : 1249; Orientation: Right; Placed By: Ardia. NUNES; Tolerance: Well 12/23/17 1249 by Ruchi Potter RN 12/23/17 1341 by Maisha Hoyt RN documented in this encounter Social History [...] of this encounter Progress Notes * Gail Venegas APRN-BENCH EXAMINER - 12/23/2017 1:26 PM CDT ANESTHESIA POSTOP EVALUATION NOTE Procedure: ESOPHAGOGASTRODUODENOSCOPY (EGD) DIAGNOSTIC WITH BIOPYS AND OR POLYPECTOMY Perla Leon is a 77 y.o. female Patient Vitals for the past 6 hrs: BP Temp Pulse Resp SpO2 12/23/17 1315 158/74 96.8 ??F (36 ??C) 81 18 (!) 88 % 12/23/17 1314 - - 79 - 98 % 12/23/17 1313 - - 78 - 98 % 12/23/17 1312 157/71 - - - - 12/23/17 1310 176/78 - - - - 12/23/17 1309 - - 81 - 98 % 12/23/17 1308 - - 81 - 99 % 12/23/17 1306 158/60 - - - - 12/23/17 1304 - - 84 - 98 % 12/23/17 1303 - - 82 - 89 % 12/23/17 1302 (!) 182/85 - - - - 12/23/17 1301 (!) 182/85 - 85 21 92 % 12/23/17 1248 161/64 96.5 ??F (35.8 ??C) 84 18 94 % Anesthesia Type: MAC * No Diagnosis Codes entered * Mental Status: awake and alert Neuro Status: No numbess, tingling or visual disturbances Respiratory Function: natural Cardiac Function: stable Postop Pain: acceptable to the patient Postop Hydration: adequate Postop Nausea: none Assessment: no apparent anesthetic complications and patient tolerated procedure well Patient Disposition: Release from Anesthesia Care documented in this encounter Consult Notes * Gail Venegas APRN-BENCH EXAMINER - 12/23/2017 1:04 PM CDT ANESTHESIA PREOPERATIVE EVALUATION NOTE Procedure: ESOPHAGOGASTRODUODENOSCOPY (EGD) DIAGNOSTIC WITH BIOPYS AND OR POLYPECTOMY Vitals: Patient Vitals for the past 6 hrs: BP Temp Pulse Resp SpO2 12/23/17 1301 (!) 182/85 - 85 21 92 % 12/23/17 1248 161/64 96.5 ??F (35.8 ??C) 84 18 94 % ANESTHESIA PRE-EVALUATION NOTE Physical Exam: Orientation: Orientation X3 Airway/Mallampati Score: III Mouth Opening Distance: 2.5 fingerwidths Teeth: normal Heart: regular rate rhythm Lungs: normal Physical Exam Additional Comments: Hx a-fib, rrr now. Off asa and plavix a week Review of Systems: History of anesthetic complications: No ANESTHESIA PLAN ASA Score: 3 NPO Status: No solids since midnight and No liquids within 2 hours Anesthesia Plan: MAC Planned Induction: intravenous Planned Postop Destination: endo Anesthetic plan was discussed with: patient Anesthetic Plan discussion was: Consented The patient's procedural Anesthetic Plan with discussed with the anesthesiologist and BENCH EXAMINER. BMI, Height, Weight Tobacco History Estimated body mass index is 35.11 kg/(m^2) as calculated from the following: Height as of this encounter: 1.651 m (5' 5 ). Weight as of this encounter: 95.7 kg (211 lb). History Smoking Status ??? Never Smoker Smokeless Tobacco ??? Never Used Alcohol History Drug History History Alcohol Use No History Drug Use No Outpatient Medications: Inpatient Medications: No current outpatient prescriptions on file. Current Facility-Administered Medications Medication Dose Last Dose ??? 0.9% NaCl ??? 0.9% NaCl 3 mL Allergies: Allergies Allergen Reactions ??? Advair Diskus YEAS INFECTION ??? Aricept [Donepezil] Other I dont remember ??? Diltiazem Swelling ??? Metformin Diarrhea ??? Fluticasone Diarrhea ??? Piper Longum ??? Salmeterol Diarrhea ??? Sotalol Other Hair loss Problem List: Patient Active Problem List Diagnosis Date Noted ??? Melena 12/12/2017 Priority: Not Prioritized ??? [...] ??? TIA (transient ischemic attack) 2000, 08/11/2008 Surgical History: Past Surgical History: Procedure Laterality [...] BIOPSY Lab Results: Recent Labs Component Name 12/09/17 1545 WBC 7.5 HGB 11.0* HCT 36.4 PLTCOUNT 326 Recent Labs Component Name 10/22/17 1157 09/08/17 0807 SODIUM - 142 POTASSIUM 4.4 3.4* CHLORIDE - 109* CO2 - 27 BUN - 19 CREATININE - 0.84 Recent Labs Component Name 09/08/17 0807 08/26/17 0413 GLUCOSE 136* 167* CALCIUM 9.7 9.3 MAGNESIUM - 2.6 Recent Review Flowsheet Data There is no flowsheet data to display. documented in this encounter Miscellaneous Notes * Anesthesia Transfer of Care - Gail Venegas APRN-BENCH EXAMINER - 12/23/2017 1:20 PM CDT ANESTHESIA TRANSFER OF CARE NOTE Today's Date: 12/23/2017 Date of : 1940 Patient: Perla Leon Procedure(s): ESOPHAGOGASTRODUODENOSCOPY (EGD) DIAGNOSTIC WITH BIOPYS AND OR POLYPECTOMY Surgeon(s): Primary: Kirk Truong MD Preop Diagnosis: * No Diagnosis Codes entered * * No Diagnosis Codes entered * . Allergies Allergen Reactions ??? Advair Diskus YEAS INFECTION ??? Aricept [Donepezil] Other I dont remember ??? Diltiazem Swelling ??? Metformin Diarrhea ??? Fluticasone Diarrhea ??? Piper Longum ??? Salmeterol Diarrhea ??? Sotalol Other Hair loss Vitals: Patient Vitals for the past 3 hrs: BP Temp Pulse Resp SpO2 12/23/17 1315 158/74 96.8 ??F (36 ??C) 81 18 (!) 88 % 12/23/17 1314 - - 79 - 98 % 12/23/17 1313 - - 78 - 98 % 12/23/17 1312 157/71 - - - - 12/23/17 1310 176/78 - - - - 12/23/17 1309 - - 81 - 98 % 12/23/17 1308 - - 81 - 99 % 12/23/17 1306 158/60 - - - - 12/23/17 1304 - - 84 - 98 % 12/23/17 1303 - - 82 - 89 % 12/23/17 1302 (!) 182/85 - - - - 12/23/17 1301 (!) 182/85 - 85 21 92 % 12/23/17 1248 161/64 96.5 ??F (35.8 ??C) 84 18 94 % Lines, Drains, and Airways Type Details Placement Removal Peripheral IV 12/23/17; 1249; Right; Forearm; Ardia. RN; 22 Gauge ; Anatomical Landmarks; 2; None; Well 12/23/17 1249 by Ruchi Potter RN Intraprocedure I/O Totals propofol (DIPRIVAN) injection 10mg/ml (ENDO USE) Volume 8 0.9% NaCl infusion Volume infused 250 ml Patient Transfer Location: Endo Recovery Transport Airway: spontaneous respirations Complications: None Handoff [...] of report from the receiving PACUteam. JUANITO Garcia documented in this encounter Plan of Treatment Not on file documented as of this encounter Goals Goal Patient Goal Type Associated Problems Recent Progress Patient-Stated? 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 8:09 AM SQL TECH) No Alisa Jaramillo HEMOGLOBIN A1C < 7.0 [...] $ New Bag/Syringe 12/23/2017 12:50 PM CDT benzocaine (HURRICANE) spray PRN, Starting on Fri12/23/17 at 1300, Until Fri12/23/17 at 1326, Anesthesia Intra-op $ Given 12/23/2017 1:00 PM CDT 1 Each lidocaine hcl (PF) (XYLOCAINE MPF) 2 % injection PRN, Starting on Fri12/23/17 at 1304, Until Fri12/23/17 at 1326, Anesthesia Intra-op $ Given 12/23/2017 1:04 PM CDT 100 mg propofol (DIPRIVAN) injection CONTINUOUS PRN, Starting on Fri12/23/17 at 1304, Until Fri12/23/17 at 1326, Anesthesia Intra-op $ New Bag/Syringe 12/23/2017 1:04 PM CDT documented in this encounter Care Teams Pl Sql Programmer Relationship Specialty Start Date End Date Etienne Florez MD Orthopedic Surgery 12/09/14 [place] [id number] [address] Oncology 09/15/17 documented as of this encounter
--- OUTSIDE RECORDS SUMMARY | 2024-05-26 12:41 | XMS_ITS | Encounter Summary ---
Author Organization [facility] Address [address] [place] [address] Care Team Providers Care Lodge Sales Associate Name Role Phone Etienne Florez MD Unavailable Enrique Gonzalez MD Unavailable [phone] Reason for Visit * Reason Comments Follow-up umbilical hernia Encounter Details Date Type Department Care Team (Late st Contact Info) Description 01/20/2018 2:10 PM CDT Office Visit [facility] - Surgery [address] [place] [address] [place] [id number] [place] [address] Rectus diastasis (Primary Dx) Social History Tobacco Use Types [...] - Inhaled Oxygen Concentration - - Weight 88.9 kg (196 lb) 01/20/2018 2:16 PM CDT Height 165.1 cm (5' 5 ) 01/20/2018 2:16 PM CDT Body Mass Index 32.62 01/20/2018 2:16 PM CDT documented in this encounter Functional [...] Instructions * Patient Instructions* Harmeet Flores - 01/20/2018 2:20 PM CDT Patient's medications and allergies were reviewed with the patient today. Patient was instructed tocontact primary care physician or ordering provider with any questions regarding medications. documented in this encounter Progress Notes * Shira Love DO - 01/20/2018 3:09 PM CDT Chief Complaint Abdominal bulge History of Present Illness: Perla Leon is a 77 y.o. female who is here for follow up. The patient is referred by Jarrell Garrison MD. The patient continues to have chronic issues with constipation. She reports starting Linzess which caused constant diarrhea. Since the Linzess has been decreased she reports diarrhea. Her last bowel movement was about a week ago. She denies abdominal pain or vomiting. She is here today with concern for abdominal bulge. She continues to follow with Dr. Gonzalez for her left breast cancer. The patient's past medical history, medication and allergies were reviewed today. Review of Systems General: No fatigue or weight loss Eyes: No vision changes or pain Neuro: No mental status changes or dizziness Cardiovascular: No chest pain or palpitations Pulmonary: No shortness of breath or wheezing. GI: No abdominal pain, no nausea. Complains of constipation Musculoskeletal: No muscle pain or joint pain Skin: No rashes or texture changes Hematologic: No easy bruising or bleeding Rectal: No rectal bleeding or pain Physical Examination: Constitutional: Vital signs are stable and the patient is no acute distress. Eyes: Reveal no icterus. Neck: Neck is supple without JVD or bruit. Respiratory: Lungs are clear. Cardiovascular: Regular rate and rhythm. GI: Abdomen is soft and non tender. Obese. Diastasis Musculoskeletal: All four extremities are warm and well perfused. Neurologic: Intact. Data Reviewed: CT Abdomen from 12/17/[address] abdomen pelvis with IV contrast ?? INDICATION: Blood in stool history breast cancer ?? TECHNIQUE: Helical CT images of the abdomen and pelvis obtained following 80 mL Omnipaque 350. ?? FINDINGS: Scans of lung bases are unremarkable. The liver, spleen and pancreas are unremarkable. Gallbladder is surgically absent. The adrenals and kidneys are unremarkable. Abdominal aorta is moderately calcified. Loops of bowel are of normal caliber. ?? There is stool throughout the length of the colon. Small bowel is nondilated. There are tiny periaortic lymph nodes, none of which are enlarged. No intra-abdominal mass is noted. There is no definite bowel wall thickening. ?? Bladder distends normally. ?? Osseous structures are unremarkable. ?? IMPRESSION There is stool throughout the length of the colon. No acute abnormality is identified. Impression/Plan: Chronic constipation Diastasis rectus History of left breast cancer I discussed physical exam findings as well as treatment plan with the patient, all questions were answered. There is no evidence of hernia on CT of the abdomen. The patient does have a diastasis, patient was reassured this does not require surgery. We discussed her constipation in detail. Encouraged increased water intake, fiber supplement daily,continue on Linzess per GI, may use miralax once to twice a day to promote healthy bowel movements.I have encouraged her to continue GI follow up. She will follow up in the office as schedule in March for breast cancer Past Medical History: Diagnosis Date ??? Asthma [...] ??? TIA (transient ischemic attack) 2000, 08/11/2008 documented in this encounter Plan of Treatment Not on file documented as of this encounter Goals Goal Patient Goal Type Associated Problems Recent Progress Patient-Stated? 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 8:09 AM CLOTH DESIZING RANGE TENDER) No Alisa Jaramillo HEMOGLOBIN A1C < 7.0 Result Component 5.4( 12:00 AM CDT) No Alisa Jaramillo documented as of this encounter Visit Diagnoses Diagnosis Rectus diastasis- Primary Diastasis of muscle documented in this encounter Care Teams Lodge Sales Associate Relationship Specialty Start Date End Date Etienne Florez MD Orthopedic Surgery 12/09/14 [place] [id number] [address] Oncology 09/15/17 documented as of this encounter
--- OUTSIDE RECORDS SUMMARY | 2024-05-26 12:41 | XMS_ITS | Encounter Summary ---
Author Organization [facility] Address [address] [place] [address] Care Team Providers Care Frame Trimmer Name Role Phone Etienne Florez MD Unavailable [phone] Enrique Gonzalez MD Unavailable [phone] Reason for Visit * Reason Onset Date Comments Medication Request 12/19/2017 Update 12/19/2017 Encounter Details Date Type Department Care Team (Late st Contact Info) Description 12/19/2017 Refill [facility] [address] [place], [facility] [address] [place] [address] [place] [address] [facility] [address] [address] Medication Request; Update Social History Tobacco Use Types Packs/Day [...] encounter Miscellaneous Notes * Telephone Encounter - Sudheer Robbins RN - 12/19/2017 11:09 AM CDT Pt calling with update on constipation, linzess 290 mcg works well, pt wants script, script attached but needs refills added. documented in this encounter Plan of Treatment Not on file documented as of this encounter Goals Goal Patient Goal Type Associated Problems Recent Progress Patient-Stated? 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 8:09 AM REMOTE MEDICAL CODER) No Alisa Jaramillo HEMOGLOBIN A1C < 7.0 Result Component 5.4( 12:00 AM CDT) No Alisa Jaramillo documented as of this encounter Visit Diagnoses Not on filedocumented in this encounter Care Teams Frame Trimmer Relationship Specialty Start Date End Date Etienne Florez MD Orthopedic Surgery 12/09/14 [place] [address] [address] Oncology 09/15/17 documented as of this encounter
--- OUTSIDE RECORDS SUMMARY | 2024-05-26 12:41 | XMS_ITS | Encounter Summary ---
Author Organization [facility] Address [address] [place] [address] Care Team Providers Care University Services Program Associate Name Role Phone Etienne Florez MD Unavailable [phone] Enrique Gonzalez MD Unavailable [phone] Theresa Camargo MD Primary Care Provider [phone] Reason for Visit * Reason Onset Date Comments Change In Bowel Habit 02/27/2018 Encounter Details Date Type Department Care Team (Late st Contact Info) Description 02/27/2018 Telephone [facility] [employer] [address] [facility], [facility] [address] [place] [address] [place] [address] [facility] [address] [address] Change In Bowel Habit Social History Tobacco Use Types Packs/Day Years [...] Telephone Encounter - Nadja Wiggins RN - 04/16/2018 2:20 PM CST Left message with instructions O VISUAL FACILITIES ENGINEER * Telephone Encounter - Kirk Truong MD - 04/15/2018 8:04 PM AUDIO VISUAL FACILITIES ENGINEER Try Benefiber 1-2 tbsp in 8oz water once constipation relapses O VISUAL FACILITIES ENGINEER * Telephone Encounter - Nadja Wiggins RN - 04/15/2018 8:53 AM CST Pt does not want to try any more amitiza because even while being off of it for over a week she is still having too frequent and unpredictable BM's limiting her ability to go out of the house. O VISUAL FACILITIES ENGINEER * Telephone Encounter - Kirk Truong MD - 04/14/2018 8:07 PM AUDIO VISUAL FACILITIES ENGINEER Try a lower dose of Amitiza. Try 8mcg PO Qday. If not strong enough, can increase to 16mcg PO Qam after 1 week. O VISUAL FACILITIES ENGINEER * Telephone Encounter - Nadja Wiggins RN - 04/14/2018 4:00 PM CST Tried Amitiza 24mcg BID for 2 weeks and caused frequent soft mushy stools with urgency. Difficult to leave the house. Stopped it about a month ago and continues with same type of BM's. Does not take anything for BM's now. No fiber. What do you suggest? O VISUAL FACILITIES ENGINEER * Addendum Note - Vivienne Lambert RN - 03/02/2018 11:54 AM CDTAddended by: VIVIENNE LAMBERT on: 03/02/2018 11:54 AM Modules accepted: Orders * Telephone Encounter - Vivienne Lambert RN - 03/02/2018 11:53 AM CDT Patient notified Amitiza 24 mcg bid called to pharmacy * Telephone Encounter - Vivienne Lambert RN - 03/02/2018 11:47 AM CDT Left message on [employer] to call for recommendations * Telephone Encounter - Kirk Truong MD - 02/27/2018 6:41 PM CDT Stop Linzess Try Amitiza 24mcg PO BID * Telephone Encounter - Vivienne Lambert RN - 02/27/2018 2:34 PM CDT On linzess 145 mcg bowels did not move * Telephone Encounter - Vivienne Lambert RN - 02/27/2018 2:31 PM CDT Taking linzess 290 mcg daily 30 minutes before breakfast. Having 3 days a week that she can't leave the house due to frequent soft unformed stools difficult to clean her rectum. Wonders what she can do documented in this encounter Plan of Treatment Not on file documented as of this encounter Goals Goal Patient Goal Type Associated Problems Recent Progress Patient-Stated? 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 8:09 AM AUDIO VISUAL FACILITIES ENGINEER) No Alisa Jaramillo HEMOGLOBIN A1C < 7.0 Result Component 5.4( 12:00 AM CDT) No Alisa Jaramillo documented as of this encounter Visit Diagnoses Not on filedocumented in this encounter Care Teams University Services Program Associate Relationship Specialty Start [place] [address] [facility] [address] [place] [address] PCP - General Internal Medicine 03/31/18 05/30/22 Etienne Florez MD Orthopedic Surgery 12/09/14 [place] [address] [facility] [address] [place] [id number] Oncology 09/15/17 documented as of this encounter
--- OUTSIDE RECORDS SUMMARY | 2024-05-26 12:41 | XMS_ITS | Encounter Summary ---
Author Organization [facility] Address [address] [place] [address] Care Team Providers Care Shrinker Name Role Phone Etienne Florez MD Unavailable [phone] Enrique Gonzalez MD Unavailable [phone] Reason for Visit * Reason Onset Date Comments Medication Issue 01/07/2018 Encounter Details Date Type Department Care Team (Late st Contact Info) Description 01/07/2018 Telephone [facility] [address] [facility], [facility] [address] [place] [address] [place] [address] [facility] [address] [address] Medication Issue Social History Tobacco Use Types [...] Telephone Encounter - Sudheer Robbins RN - 01/08/2018 9:15 AM CDT Pt notified, medication sent tot pharmacy. * Telephone Encounter - Kirk Truong MD - 01/07/2018 8:14 PM CDT OK to call in Linzess 145mcg PO qam or provide samples for trial * Telephone Encounter - Sudheer Robbins RN - 01/07/2018 4:53 PM CDT Pt says that she is going too much on the linzess 290 mcg, she says her bowels are moving too much,she is asking if she can get a lower dose of the linezess. documented in this encounter Plan of Treatment Not on file documented as of this encounter Goals Goal Patient Goal Type Associated Problems Recent Progress Patient-Stated? Author Blood Pressure < 140/90 Blood Pressure 127/52(2022 8:09 AM ASSEMBLING MOTOR BUILDER) No Alisa Jaramillo HEMOGLOBIN A1C < 7.0 Result Component 5.4( 12:00 AM CDT) No Alisa Jaramillo documented as of this encounter Visit Diagnoses Not on filedocumented in this encounter Care Teams Shrinker Relationship Specialty Start Date End Date Etienne Florez MD Orthopedic Surgery 12/09/14 [place] [address] [address] Oncology 09/15/17 documented as of this encounter
--- OUTSIDE RECORDS SUMMARY | 2024-05-26 12:41 | XMS_ITS | Encounter Summary ---
Author Organization [facility] Health Address [address] [place] [address] Care Team Providers Care Inspector Purchased Parts Name Role Phone Etienne Florez MD Unavailable [phone] Enrique Gonzalez MD Unavailable [phone] Theresa Camargo MD Primary Care Provider Reason for Referral * Radiology Services (Routine) - Closed Specialty Diagnoses / Procedures Referred By Alejandrina vale Referred To Contact Mammography Diagnoses Malignant neoplasm of left female breast, unspecified estrogen receptor status, unspecified site of breast (HCC) Procedures [place] [address] [address] [place] [address] [facility] [address] [address] Referral ID Status Reason Start Date Expiration Date Visits Re quested Visits Authorized [id number] Closed 04/02/2018 09/29/2018 1 1 RGROUND MINE MACHINERY MECHANIC Reason for Visit * Reason Comments Follow-up Left breast ca Encounter Details Date Type Department Care Team (Late st Contact Info) Description 03/31/2018 1:30 PM UNDERGROUND MINE MACHINERY MECHANIC Office Visit [facility] - Surgery [address] [facility], [address] [place] [address] [place] [address] [address] [place] [address] Malignant neoplasm of left female breast, unspecified estrogen receptor status, unspecified site of breast (HCC) (Primary Dx) [...] - Inhaled Oxygen Concentration - - Weight 87.1 kg (192 lb) 03/31/2018 2:07 PM UNDERGROUND MINE MACHINERY MECHANIC Height 165.1 cm (5' 5 ) 03/31/2018 2:07 PM UNDERGROUND MINE MACHINERY MECHANIC Body Mass Index 31.95 03/31/2018 2:07 PM UNDERGROUND MINE MACHINERY MECHANIC documented in this encounter Functional Status Functional [...] Instructions * Patient Instructions* Harmeet Flores - 03/31/2018 2:10 PM UNDERGROUND MINE MACHINERY MECHANIC Patient's medications and allergies were reviewed with the patient today. Patient was instructed tocontact primary care physician or ordering provider with any questions regarding medications. RGROUND MINE MACHINERY MECHANIC documented in this encounter Progress Notes * Shira Love, - 03/31/2018 12:13 PM CST 03/31/2018 Perla Leon presents today for follow up for her cancer. 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 Patient [...] on 09/17/2017. She presents today for her 1 year follow-up. She denies any complaints and she presents today with her . Past Medical History: Diagnosis Date ??? [...] to Visit Medication Sig Dispense Refill ??? lubiprostone (AMITIZA) 24 MCG capsule Take 1 capsule by mouth 2 times daily with morning and evening meal 60 capsule 0 ??? lubiprostone (AMITIZA) 24 MCG capsule Take 1 capsule by mouth 2 times daily Reasons: Chronic Constipation of Unknown Cause 60 capsule 11 ??? levothyroxine (SYNTHROID) 25 MCG tablet Take [...] tabs with breakfast 360 tablet 0 ??? linaCLOtide (LINZESS) 145 MCG capsule Take 1 capsule by mouth daily before breakfast Take on anempty stomach at least 30 minutes prior to first meal of the day. (Patient not taking: Reported on 02/16/2018) 30 capsule 0 ??? polyethylene glycol 3350 (MIRALAX) packet [...] MCG TBCR Take by mouth once daily. No current facility-administered medications on file prior [...] pain nipple discharge or new masses Musculoskeletal: No muscle pain or joint pain Skin: No rashes or texture changes Hematologic: No easy bruising or bleeding Physical Exam General: alert, in no distress, [...] tenderness incision well healed. Imaging Review Mammogram 07/30/2017 A small spiculated distortion persists [...] ?? ER: ??Positive ??(96.6 ?%, intensity: strong) IA: ??Positive (22.5 ?%, intensity: moderate) Her-2-osmin: ?Not [...] left sentinel lymph node biopsy Arimidex Assessment Breast Cancer Stage 1A ER +/IA +/Her 2 - Overall she is doing quite well. She is having no issues with her Arimidex. She has decided to forego adjuvant radiation therapy. She has no changes on her physical exam. Encouraged her to do monthlyself-breast exams. She will see me in office in 6 months for follow-up and diagnostic mammogram. Continue her at stretching and exercising. Encouraged her to follow up sooner if she had any issues. RGROUND MINE MACHINERY MECHANIC documented in this encounter Plan of Treatment Not on file documented as of this encounter Goals Goal Patient Goal Type Associated Problems Recent Progress Patient-Stated? Author Blood Pressure < 140/90 Blood Pressure 127/52(2022 8:09 AM UNDERGROUND MINE MACHINERY MECHANIC) No AllisonflorentinoAlisa marks HEMOGLOBIN A1C < 7.0 Result Component 5.4( 12:00 AM CDT) No Clint Alisa documented as of this encounter Results * MAMMO BILAT DIAGNOSTIC [...] if suspicious findings are present clinically. An [employer]. [facility] utilize [employer] as a reminder system to notify patients of their next recommended mammograms. Edited by Angela Rodgers on 09/14/2018 11:00 AM Reading Radiologist: Dianna Simmons MD on 09/14/2018 at 11:22 AM Shira Love DO MAMMO ORDERABLES documented in this encounter Visit Diagnoses Diagnosis Malignant neoplasm of left female breast, unspecified estrogen receptor status, unspecified site of breast (HCC)- Primary Malignant neoplasm of left female breast, unspecified estrogen receptor status, unspecified site of breast (HCC) documented in this encounter Care Teams Inspector Purchased Parts Relationship Specialty [place] [id number] [facility] [address] [place] [address] PCP - General Internal Medicine 03/31/18 05/30/22 Etienne Florez MD Orthopedic Surgery 12/09/14 [place] [address] [facility] [address] [place] [address] Oncology 09/15/17 documented as of this encounter
--- OUTSIDE RECORDS SUMMARY | 2024-05-26 12:41 | XMS_ITS | Encounter Summary ---
Author Organization [facility] Address [address] [place] [address] Care Team Providers Care Car Blocker Name Role Phone Etienne Florez MD Unavailable [phone] Enrique Gonzalez MD Unavailable [phone] Reason for Visit * Reason Comments Refill Request Encounter Details Date Type Department Care Team (Late st Contact Info) Description 02/12/2018 Refill [facility] Medical [facility] - Family Medicine [address] [place] [address] [address] [place] [address] Jarrell Garrison MD [address] [facility] [address] [place] [id number] Refill Request Social History Tobacco Use Types [...] < 140/90 Blood Pressure 127/52(2022 8:09 AM ENGINEER SYSTEM ADMINISTRATOR) No Alisa Jaramillo HEMOGLOBIN A1C < 7.0 Result Component 5.4( 12:00 AM CDT) No Alisa Jaramillo documented as of this encounter Visit Diagnoses Not on filedocumented in this encounter Care Teams Car Blocker Relationship Specialty Start Date End Date Etienne Florez MD Orthopedic Surgery 12/09/14 [place] [address] [phone] Oncology 09/15/17 documented as of this encounter
--- OUTSIDE RECORDS SUMMARY | 2024-05-26 12:41 | XMS_ITS | Encounter Summary ---
Author Organization [facility] Health Address [address] [facility] [address] Care Team Providers Care Epidemiologist Name Role Phone Etienne Florez MD Unavailable [phone] Enrique Gonzalez MD Unavailable [phone] Reason for Visit * Reason Comments Follow-up Encounter Details Date Type Department Care Team (Late st Contact Info) Description 01/14/2018 10:20 AM CDT Office Visit [facility] Health Cancer Care [id number] [place] [address] [place] [address] [address] Malignant neoplasm of upper-outer quadrant of left breast in female, estrogen receptor positive (HCC) (Primary Dx); Use of aromatase inhibitors; Class 2 obesity with body mass index (BMI) of 35.0 to 35.9 in adult, unspecified obesity type, unspecified whether serious comorbidity present; Osteopenia of neck of femur, unspecified laterality Social History Tobacco Use Types Packs/Day Years [...] Sign Reading Time Taken Comments Blood Pressure 144/64 01/14/2018 10:37 AM CDT Pulse 80 01/14/2018 10:37 AM CDT Temperature 37.1 ??C (98.7 ??F) 01/14/2018 10:37 AM C DT Respiratory Rate 16 01/14/2018 10:37 AM CDT Oxygen Saturation - - Inhaled Oxygen Concentration - - Weight 89 kg (196 lb 1.6 oz) 01/14/2018 10:37 AM CDT Height 165.1 cm (5' 5 ) 01/14/2018 10:37 AM CDT Body Mass Index 32.63 01/14/2018 10:37 AM CDT documented in this encounter [...] * Patient Instructions* Enrique Gonzalez MD - 01/14/2018 11:00 AM CDT Serum calcium level Prolia today RTC in 3 months documented in this encounter Progress Notes * Enrique Gonzalez MD - 01/14/2018 10:41 AM CDT Oncology Clinic Follow Up Note Date of Follow Up: 01/14/2018 Patient Name:??Perla Leon??is a 77 y.o. Female ??= 1940 ? Surgeon:?Dr Shira Love? PCP: Jarrell Garrsion MD ?? Diagnsosis ??Stage 1 ([id number]) Malignant neoplasm upper outer quadrant of left breast, ER/KS positive, HER2 negative ? Arimidex 1 mg po daily started on 09/17/17 Prolia 60 mg SQ Q 6 months starting on 01/14/18 ? HPI: Perla Leon??is an 77 y.o.??white woman with history of TIA, atrial fib, DM, heart murmur, partalseizures, famlila spastic paraparesis and obesity, diagnosed with left breast cancer in August 2017 and is currently on Arimidex came today for 3 months follow up. She initially underwent routine screening mammogram on 07/02/17 that showed a questionable ??spiculated mass in the upper outer left breast. ??Diagnostic mammogram 07/30/17 and breast ultrasound exam Confirmed the abnormality. She had excisional biopsy on [...] swings but has noted some hair loss. DEXA showed osteopenia for which she is on calcium and Vit D supplement and is scheduled to start Prolia today. No other new complaints. Medical History [...] negative. Depression: PHQ-2:TOTAL POINT SCORE: 0 PHQ-9: Physical Exam BP 144/64 (BP SITE: LEFT ARM, BP POSITION: SITTING, BP CUFF SIZE: 11) Pulse 80 Temp 98.7 ??F (37.1 ??C) (Temporal) Resp 16 Ht 5' 5 (1.651 m) Wt 196 lb 1.6 oz (89 kg) BMI 32.63 kg/m2 GENERAL: in no acute distress HEENT: Extra-ocular motions intact. ORAL CAVITY AND OROPHARYNX: moist & without lesions. NECK: Supple. NODES: No palpable adenopathy CVS: RRR; no murmurs, rubs or gallops [...] except hair loss - Self breast exam 2. Obesity ? 3. Osteopenia: continue on Calcium and Vit D, Prolia starting today 4. ECOG 3 Poor Functional status ? 5. Family history of breast cancer : genetic testing sent 6. Famlial Spastic Paraparesis RTC in 3 months Enrique Gonzalez MD 01/14/2018 11:53 AM documented in this encounter Plan of Treatment Not on file documented as of this encounter Goals Goal Patient Goal Type Associated Problems Recent Progress Patient-Stated? Author Blood Pressure < 140/90 Blood Pressure 127/52(2022 8:09 AM TRAY LINE SUPERVISOR) No Alisa Jaramillo HEMOGLOBIN A1C < 7.0 Result Component 5.4( 12:00 AM CDT) No Alisa Jaramillo documented as of this encounter Visit Diagnoses Diagnosis Malignant neoplasm of upper-outer quadrant of left breast in female, estrogen receptor positive (HCC)- Primary Use of aromatase inhibitors Class 2 obesity with body mass index (BMI) of 35.0 to 35.9 in adult, unspecified obesity type, unspecified whether serious comorbidity present Osteopenia of neck of femur, unspecified laterality documented in this encounter Care Teams Epidemiologist Relationship Specialty Start Date End Date Etienne Florez MD Orthopedic Surgery 12/09/14 [place] [address] [phone] Oncology 09/15/17 documented as of this encounter
--- OUTSIDE RECORDS SUMMARY | 2024-05-26 12:41 | XMS_ITS | Encounter Summary ---
Author Organization [facility] Address [address] [place] [address] Care Team Providers Care Curator Medical Museum Name Role Phone Etienne Florez MD Unavailable [phone] Enrique Gonzalez MD Unavailable [phone] Reason for Visit * Reason Onset Date Comments Opened In Error 02/13/2018 Encounter Details Date Type Department Care Team (Late Contact Info) Description 02/13/2018 Telephone [facility] - Family Medicine [address] [place] [address] [address] [place] [address] Jarrell Garrison MD [address] [facility] [address] [place] [address] Opened In Error Social History Tobacco Use [...] Miscellaneous Notes * Telephone Encounter - Laisha Osman - 02/13/2018 2:24 PM CDT Error documented in this encounter Plan of Treatment Not on file documented as of this encounter Goals Goal Patient Goal Type Associated Problems Recent Progress Patient-Stated? Author Blood Pressure < 140/90 Blood Pressure 127/52(2022 8:09 AM DEPARTMENT SUPERVISOR) No Alisa Jaramillo HEMOGLOBIN A1C < 7.0 Result Component 5.4( 12:00 AM CDT) No Alisa Jaramillo documented as of this encounter Visit Diagnoses Not on filedocumented in this encounter Care Teams Curator Medical Museum Relationship Specialty Start Date End Date Etienne Florez MD Orthopedic Surgery 12/09/14 [place] [address] [address] Oncology 09/15/17 documented as of this encounter
--- OUTSIDE RECORDS SUMMARY | 2024-05-26 12:41 | XMS_ITS | Encounter Summary ---
Author Organization [facility] Address [address] [facility] [facility] [place] [address] Care Team Providers Care Intensive Care Ambulance Paramedic Name Role Phone Etienne Florez MD Unavailable Enrique Gonzalez MD Unavailable [phone] Reason for Visit * Reason Onset Date Comments Change In Bowel Habit 02/09/2018 Encounter Details Date Type Department Care Team (Late st Contact Info) Description 02/09/2018 Telephone [facility] [address] [facility] [address] [place] [address] [place] [address] [address] Change In Bowel Habit Social [...] Telephone Encounter - Marisol Burroughs RN - 02/09/2018 3:25 PM CDT On linzess 145 mcg 1 daily hawk continued constipation With linzess 290 mcg stools soft and difficult to keep rectum clean. Has only been on 290 mcg approzimately 1 week. She will give it another week and call with update documented in this encounter Plan of Treatment Not on file documented as of this encounter Goals Goal Patient Goal Type Associated Problems Recent Progress Patient-Stated? Author Blood Pressure < 140/90 Blood Pressure 127/52(2022 8:09 AM AIR BREAKER OPERATOR) No Alisa Jaramillo HEMOGLOBIN A1C < 7.0 Result Component 5.4( 12:00 AM CDT) No Alisa Jaramillo documented as of this encounter Visit Diagnoses Not on filedocumented in this encounter Care Teams Intensive Care Ambulance Paramedic Relationship Specialty Start Date End Date Etienne Florez MD Orthopedic Surgery 12/09/14 [place] [address] [address] Oncology 09/15/17 documented as of this encounter
--- OUTSIDE RECORDS SUMMARY | 2024-05-26 12:42 | XMS_ITS | Encounter Summary ---
Author Organization [facility] Address [address] [place] [address] Care Team Providers Care Relief Man Name Role Phone Etienne Florez MD Unavailable [phone] Enrique Gonzalez MD Unavailable [phone] Reason for Visit * Reason Onset Date Comments MEDICATION REFILL 10/27/2017 Encounter Details Date Type Department Care Team (Late st Contact Info) Description 10/27/2017 Refill [facility] Medical [facility] - Family Medicine [address] [place] [address] [address] [place] [address] Jarrell Garrison MD [address] [facility] [address] [place] [address] MEDICATION REFILL Social History Tobacco [...] encounter Miscellaneous Notes * Telephone Encounter - Vinny Ahmadi - 10/27/2017 4:26 PM CDT Perla Leon is in need of Her Requested Prescriptions Pending Prescriptions Disp Refills ??? rosuvastatin (CRESTOR) 10 MG tablet 90 tablet 3 Sig: Take 1 tablet by mouth at bedtime Person calling for the refill: Patient Last office visit 10/22/17 Next Appointment scheduled: 02/11/2018 Last Refill for this medication 11/05/16 Does patient have any new allergies since [...] < 140/90 Blood Pressure 127/52(2022 8:09 AM SCHOOL SECRETARY) No Alisa Jaramillo HEMOGLOBIN A1C < 7.0 Result Component 5.4( 12:00 AM CDT) No Alisa Jaramillo documented as of this encounter Visit Diagnoses Not on filedocumented in this encounter Care Teams Relief Man Relationship Specialty Start Date End Date Etienne Florez MD Orthopedic Surgery 12/09/14 [place] [address] [address] Oncology 09/15/17 documented as of this encounter
--- OUTSIDE RECORDS SUMMARY | 2024-05-26 12:42 | XMS_ITS | Encounter Summary ---
Author Organization [facility] Health Address [address] [facility] [place] [address] Care Team Providers Care Alcohol And Drug Counselor Name Role Phone Etienne Florez MD Unavailable [phone] Enrique Gonzalez MD Unavailable [phone] Reason for Visit * Reason Onset Date Comments General 11/06/2017 Encounter Details Date Type Department Care Team (Late st Contact Info) Description 11/06/2017 Telephone [facility] Neurosciences [address] [facility] [address] [place] [address] [place] [address] [facility] [address] [place] [address] General Social History Tobacco Use Types Packs/Day [...] encounter Miscellaneous Notes * Telephone Encounter - Mila Jeronimo - 11/10/2017 1:05 PM CDT Called bekah and TIMOTHY, stated that a message was left three days ago and wanted to make sure that she did get the message per the Dr. * Telephone Encounter - Nelson Ross MD - 11/10/2017 12:44 PM CDT Lidocaine is fine * Telephone Encounter - Mila Jeronimo - 11/07/2017 1:46 PM CDT Daughter missed the doctors call and returning the call. Stated that the medication that the patient is getting for the biopsy is the lidocaine or is there something else that she should be given. * Telephone Encounter - Nelson Ross MD - 11/07/2017 1:30 PM CDT LMOV * Telephone Encounter - Laisha Swift MA - 11/07/2017 12:45 PM CDT Pt's daughter (Bekah) calling regarding the pt having an biopsy. Bekah would like to speak with youto discuss the medication. Please call Bekah at [phone]. * Telephone Encounter - Nikki Wan - 11/06/2017 10:37 AM CDT Received a call from the patient's daughter (Bekah)who states she spoke with you yesterday regarding the patient having biopsy and was to call you back to discuss medication. Please follow up with the patient daughter Bekah. [phone] documented in this encounter Plan of Treatment Not on file documented as of this encounter Goals Goal Patient Goal Type Associated Problems Recent Progress Patient-Stated? Author Blood Pressure < 140/90 Blood Pressure 127/52(2022 8:09 AM CLINICAL LEADER) No Alisa Jaramillo HEMOGLOBIN A1C < 7.0 Result Component 5.4( 12:00 AM CDT) No Alisa Jaramillo documented as of this encounter Visit Diagnoses Not on filedocumented in this encounter Care Teams Alcohol And Drug Counselor Relationship Specialty Start Date End Date Etienne Florez MD Orthopedic Surgery 12/09/14 [place] [address] [address] Oncology 09/15/17 documented as of this encounter
--- OUTSIDE RECORDS SUMMARY | 2024-05-26 12:42 | XMS_ITS | Encounter Summary ---
Author Organization [facility] Address [address] [facility] [place] [address] Care Team Providers Care University Tutor Name Role Phone Etienne Florez MD Unavailable [phone] Enrique Gonzalez MD Unavailable [phone] Reason for Visit * Reason Comments Establish Care * Evaluate - Closed Specialty Diagnoses / Procedures Referred By Contac t Referred To Contact Oncology-Medical Diagnoses Infiltrating ductal carcinoma of left breast ([place] [address] [place] [address] [facility] [address] [facility] [address] [place] [address] Referral ID Status Reason Start Date Expiration Date V isits Requested Visits Authorized [id number] Closed Specialty Services Required 09/02/2017 03/01/2018 1 1 Encounter Details Date Type Department Care Team (Late st Contact Info) Description 09/17/2017 3:00 PM CDT Office Visit [facility] Care [id number] [place] [phone] Enrique Gonzalez MD [id number] [place] [phone] Malignant neoplasm of upper-outer quadrant of left breast in female, estrogen receptor positive (HCC) (Primary Dx); Infiltrating ductal carcinoma of left breast (HCC); Use of aromatase inhibitors; Sleep apnea, unspecified type; Class 2 obesity with body mass index [...] Sign Reading Time Taken Comments Blood Pressure 142/90 09/17/2017 1:02 PM CDT Pulse 68 09/17/2017 1:02 PM CDT Temperature 36.7 ??C (98 ??F) 09/17/2017 1:02 PM CDT Respiratory Rate 20 09/17/2017 1:02 PM CDT Oxygen Saturation - - Inhaled Oxygen Concentration - - Weight 96.3 kg (212 lb 4.8 oz) 09/17/2017 1:02 P M CDT Height 165.1 cm (5' 5 ) 09/17/2017 1:02 PM CDT Body Mass Index 35.33 09/17/2017 1:02 PM CDT documented in this encounter Functional [...] * Patient Instructions* Enrique Gonzalez MD - 09/17/2017 1:52 PM CDT Start Arimidex 1 mg po daily DEXA scan RTC in 4 weeks to f/u with Nancy documented in this encounter Progress Notes * Enrique Gonzalez MD - 09/17/2017 1:05 PM CDT [facility] /ONCOLOGY CLINIC CONSULTATION Date of Visit: 09/17/2017 Patient Name: Perla Leon is a 76 y.o. Female = 1940 Referring Physician: Dr Shira Love PCP: Jarrell Garrison MD Reason for Visit: Stage 1 ([id number]) Malignant neoplasm upper outer quadrant of left breast, ER/WV positive, HER2 negative HPI: Perla Leon is an 76 y.o. white woman with history of TIA, atrial fib, DM, heart murmur, partal seizures, famlila spastic paraparesis and obesity who initially underwent routine screening mammogramon 07/02/17 that showed a questionable spiculated mass in the upper outer left breast. Diagnostic jose mogram 07/30/17 demonstrated a small spiculated distortion persists in the left breast at 1 to 2 o'clock 5 cm from the nipple. Directed ultrasound exam showed 8 mm hypoechoic density at the site of the spiculated distortion mammographically at 1:00 to 2:00, 5 cm from the nipple. She had excisional biopsy on 08/25/[address] Love that showed 1.1 cm grade 2 infiltrating ductal carcinoma with DC IS, no vascular or neural invasion, + micro calcifications present, and all surgical margins free of tumor (closest margin, posterior at 4 mm). She had SLNB on 09/08/17 and two lymph nodes were negative for tumor involvement. She is recuperating well. Her menarche was at age 11, had three children and used OCP's in between, she underwent hysterectomy in 1985. She has family history of breast cancer including mother who was at age 54, niece diagnosed with breast cancer at age 49, cousin diagnosed with breast cancer in her 50's. She also has paternal aunt diagnosed with stomach cancer. Shr was put on HRT for some time after her hysterectomy but was stopped once she sustained TIA. PMH: Past Medical History: Diagnosis Date ??? Asthma [...] ??? TIA (transient ischemic attack) 2000, 08/11/2008 PSH: Past Surgical History: Procedure Laterality Date ??? [...] PRECANCERSOUS SPOTS ON RT AND LT ARM Medications: Outpatient Encounter Prescriptions as of 09/17/2017 Medication Sig Dispense Refill ??? clopidogrel (PLAVIX) 75 MG tablet Take 1 tablet by mouth at bedtime 90 tablet 2 ??? lubiprostone (AMITIZA) 24 MCG capsule Take 1 capsule by mouth daily with breakfast 30 capsule 0 ??? HYDROcodone-acetaminophen (NORCO) 5-325 MG tablet Take 1 tablet by mouth every 6 hours as needed for Pain 12 tablet 0 ??? HYDROcodone-acetaminophen (NORCO) 5-325 MG tablet Take 1 tablet by mouth every 6 hours as needed for Pain (Patient not taking: Reported on 09/02/2017) 20 tablet 0 ??? potassium chloride (KLOR-CON 10) 10 MEQ tablet Take 1 tablet by mouth once daily The patient should only Take 4 tabs with breakfast please disregard the 1 tablet by mouth daily 60 tablet 0 ??? metOLazone (ZAROXOLYN) 2.5 MG [...] mouth once daily 90 Tab 2 ??? rosuvastatin (CRESTOR) 10 MG tablet Take 1 Tab by mouth at bedtime 90 Tab 3 ??? esomeprazole (NEXIUM) 40 MG capsule Take 1 Cap by mouth once daily 90 Cap 3 ??? empagliflozin (JARDIANCE) 10 MG tablet Take [...] TBCR Take by mouth once daily. No facility-administered encounter medications on file as of 09/17/2017. Allergy: Allergies Allergen Reactions ??? Advair Diskus YEAS INFECTION ??? Aricept [Donepezil] Other I dont remember ??? Diltiazem Swelling ??? Metformin Diarrhea ??? Fluticasone Diarrhea ??? Piper Longum ??? Salmeterol Diarrhea ??? Sotalol Other Hair loss Family history: She has family history of breast cancer including mother who was at age 54, niece diagnosed with breast cancer at age 49, cousin diagnosed with breast cancer in her 50's. She also has paternal aunt diagnosed with stomach cancer. Social history: Social History Social History ??? Marital status: [...] ??? Not on file Social History Narrative Review of Systems 12 point organ system was all reviewed and the pertinent positives included in the HPI above. The rest was negative. Depression: PHQ-2:TOTAL POINT SCORE: 0 PHQ-9: ECOG 3 PS Physical Examination: Vitals: BP 142/90 Pulse 68 Temp 98 ??F (36.7 ??C) (Temporal) Resp 20 Ht 5' 5 (1.651 m) Wt 212 lb 4.8 oz (96.3 kg) BMI 35.33 kg/m2 General: Pleasant woman accompanied by daughter and , using walker, poor functional status. HEENT: Extra-ocular movements intact. Moist mucous membranes in oropharynx. Neck: Supple, without lymphadenopathy or thyromegaly. No carotid bruits. Lymph: No axillary, cervical, supraclavicular, pre-auricular, submental, or occipital lymphadenopathy Breast: Left breast mastectomy and SLNB scar healing ok, some tenderness, no other mass palpated. Cardiovascular: Regular rate and rhythm, with normal S1 and S2. No murmurs, rubs, or gallops. No JVD. Lungs: Good bilateral airentrys throughout lung dave. No wheezes. Abdomen: Normoactive bowel sounds. Soft, flat, non-tender, and non-distended. No hepatosplenomegaly Skin: Warm, dry, well-perfused. No rashes or other lesions. Extremities: has chronically swollen legs, non tender GUT: No CVAT. Neuro: Alert and oriented to person, place, and time. Able to communicate well. Has bilateral leg weakness Psych: Appropriate affect. Pertinent Labs: 08/25/17, Left breast mass, lumpectomy: -- Infiltrating ductal carcinoma, NOS, grade 2, 1.1 x 0.8 x 0.7 cm -- Ductal carcinoma in situ, solid, grade 2 -- DCIS constitutes about 10% of tumor burden -- No vascular or neural invasion seen -- Microcalcifications present associated with non-neoplastic tissue -- Proliferative and non-proliferative fibrocystic changes -- All surgical margins free of tumor (closest margin, posterior at 4 mm) -- Provisional TNM stage T1c, NX, MX ER: Positive (96.6 %, intensity: strong) WV: Positive (22.5 %, intensity: moderate) Her-2-osmin: Not over-expressed (score 1+) Ki-67: Borderline proliferation (19.4 %) 09/08/17, Left axillary sentinel lymph node, excision: -- Lymph node # 1: No metastatic tumor detected in one lymph node (0/1) -- Lymph node # 2: No metastatic tumor detected in one lymph node (0/1) Imaging & other studies: Digital screening mammogram on 07/02/2017: Questioned spiculated mass in the upper outer left breast (CC 16, MLO 20). No mammographic evidence of malignancy in the right breast. Left Breast US on 07/30/17: Reveals a hypoechoic density at the site of the spiculated distortion mammographically at 1:00 to 2:00, 5 cm from the nipple, measuring 8 x 6 x 8 mm. Survey images of the axilla do not reveal abnormal adenopathy. Findings are suspicious and tissue diagnosis would be warranted. ?? Diagnostic mammogram 07/30/17: A small spiculated distortion persists in the left breast at 1 to 2 o'clock 5 cm from the nipple. Directed ultrasound was performed and reveals a correlate Assessment & Plan 1. Malignant neoplasm of upper-outer quadrant of left breast in female, estrogen receptor positive,Stage IA 2. Obesity 3. ECOG 3 Poor Functional status 4. Family history of breast cancer A 76 yo woman with multiple comorbidities and ECOG 3 poor functional status now diagnosed with stage 1A (1.1 cm) left breast ductal carcinoma with favorable prognostic markers (ER +, WV+, HER2 negative). She underwent excision of the tumor with negative surgical margins and the SLN were not involved. First, we discussed about chemotherapy. Obviously, the issue of chemotherapy is more complicated inthese patients with very small invasive carcinoma. I noted the fact that adjuvant chemotherapy may benefit some patients, but not all patients with breast cancer derive a benefit. Given her elderly age and poor functional status, the potential toxicity from chemo will out weight its ,marginal benefit and I won't offer her. I won't send molecular testing (Obcotype DX RS). We also discussed the need for endocrine (hormonal) therapy. Adjuvant endocrine therapy reduces breast cancer recurrence and breast cancer mortality in postmenopausal women with early stage hormone receptor-positive breast cancer. When compared with tamoxifen, the aromatase inhibitors (AI) result in a more substantial reduction in recurrence rates during treatment and lower breast cancer mortality both during and after treatment. The AIs (Anastrazole, Letrozole and exemestane) appear to have similar efficacy in the adjuvant setting. Therefore, no one AI is preferred over another. Given her Hxof TIA, I won't offer her tamoxifen. I will offer her Arimidex 1 mg po daily for 5 years. The side effects of AI include but not limitedto joint pain and stiffness, bone loss, sexual dysfunction and hot flashes. I will get base line DEXA scan to assess her bone density. She already met with Dr Persaud and he may forgo the radiation therapy as long as she will be adherent with endocrine therapy. ovided to her satisfaction. ?? Plan: Base line DEXA Start Arimidex 1 mg po daily DEXA scan RTC in 4 weeks to f/u with Nancy Calcium/Vitamin D supplements during endocrine therapy Annual mammograms Frequent self-breast exam Genetic counselor Thank you for involving me in the care of this patient and let me know if there will be any additional questions, Enrique Gonzalez MD 09/17/2017 4:51 PM Hematology and Oncology [facility] documented in this encounter Plan of Treatment Not on file documented as of this encounter Goals Goal Patient Goal Type Associated Problems Recent Progress Patient-Stated? Author Blood Pressure < 140/90 Blood Pressure 127/52(2022 8:09 AM BREWERY PUMPER) No Alisa Jaramillo HEMOGLOBIN A1C < 7.0 Result Component 5.4( 12:00 AM CDT) No Alisa Jaramillo documented as of this encounter Visit Diagnoses Diagnosis Malignant neoplasm of upper-outer quadrant of left breast in female, estrogen receptor positive (HCC)- Primary Infiltrating ductal carcinoma of left breast (HCC) Use of aromatase inhibitors Sleep apnea, unspecified type Class 2 obesity with body mass index (BMI) of 35.0 to 35.9 in adult, unspecified obesity type, unspecified whether serious comorbidity present documented in this encounter Care Teams University Tutor Relationship Specialty Start Date End Date Etienne Florez MD Orthopedic Surgery 12/09/14 [place] [id number] [phone] Oncology 09/15/17 documented as of this encounter
--- OUTSIDE RECORDS SUMMARY | 2024-05-26 12:42 | XMS_ITS | Encounter Summary ---
Author Organization [facility] Address [address] [place] [address] Care Team Providers Care Special Educator Name Role Phone Etienne Florez MD Unavailable [phone] Enrique Gonzalez MD Unavailable [phone] Reason for Visit * Reason Onset Date Comments General 10/01/2017 Requesting a hola l Encounter Details Date Type Department Care Team (Late Contact Info) Description 10/01/2017 Telephone [facility] - Family Medicine [address] [place] [address] [address] [place] [address] Jarrell Garrison MD [address] [facility] [address] [place] [address] General (Requesting a call) Social History Tobacco Use Types Packs/Day Years [...] encounter Miscellaneous Notes * Telephone Encounter - Shayy Abraham - 10/01/2017 4:[address] will call the patient * Telephone Encounter - Jarrell Garrison MD - 10/01/2017 12:29 PM CDT Will do * Telephone Encounter - Breezy Townsend - 10/01/2017 11:43 AM CDT Pt is currently hospitalized for a potassium problem, daughter is requesting to speak with Dr. Garrison. Verified daughter on HIPAA form. documented in this encounter Plan of Treatment Not on file documented as of this encounter Goals Goal Patient Goal Type Associated Problems Recent Progress Patient-Stated? Author Blood Pressure < 140/90 Blood Pressure 127/52(2022 8:09 AM COMPLIANCE TESTER) No Alisa Jaramillo HEMOGLOBIN A1C < 7.0 Result Component 5.4( 12:00 AM CDT) No Alisa Jaramillo documented as of this encounter Visit Diagnoses Not on filedocumented in this encounter Care Teams Special Educator Relationship Specialty Start Date End Date Etienne Florez MD Orthopedic Surgery 12/09/14 [place] [id number] [phone] Oncology 09/15/17 documented as of this encounter
--- OUTSIDE RECORDS SUMMARY | 2024-05-26 12:42 | XMS_ITS | Encounter Summary ---
Author Organization [facility] Address [address] [place] [address] Care Team Providers Care Auto Air Conditioning Apprentice Name Role Phone Etienne Florez MD Unavailable [phone] Enrique Gonzalez MD Unavailable [phone] Reason for Visit * Reason Onset Date Comments MEDICATION REFILL 11/11/2017 Encounter Details Date Type Department Care Team (Late st Contact Info) Description 11/11/2017 Refill [facility] Medical [facility] - Family Medicine [address] [place] [address] [address] [place] [address] Jarrell Garrison MD [address] [facility] [address] [place] [address] MEDICATION REFILL Social History Tobacco [...] encounter Miscellaneous Notes * Telephone Encounter - Sahra Avalos - 11/11/2017 3:41 PM CDT Perla Leon is in need of Her Requested Prescriptions Pending Prescriptions Disp Refills ??? esomeprazole (NEXIUM) 40 MG capsule 90 capsule 3 Sig: Take 1 capsule by mouth once daily Person calling for the refill: Patient Last office visit 10/22/17 Next Appointment scheduled: 02/11/2018 Last Refill for this medication 10/21/16 Does patient have any new allergies since [...] 140/90 Blood Pressure 127/52(2022 8:09 AM GLASS ENAMEL MIXER) No Alisa Jaramillo HEMOGLOBIN A1C < 7.0 Result Component 5.4( 12:00 AM CDT) No Alisa Jaramillo documented as of this encounter Visit Diagnoses Not on filedocumented in this encounter Care Teams Auto Air Conditioning Apprentice Relationship Specialty Start Date End Date Etienne Florze MD Orthopedic Surgery 12/09/14 Enrique Gonzalez MD [id number] [place], [place] [phone] Oncology 09/15/17 documented as of this encounter
--- OUTSIDE RECORDS SUMMARY | 2024-05-26 12:42 | XMS_ITS | Encounter Summary ---
Author Organization [facility] Address [address] [facility] [place] [address] Care Team Providers Care Pet Sitter Name Role Phone Etienne Florez MD Unavailable [phone] Enrique Gonzalez MD Unavailable [phone] Reason for Visit * Reason Onset Date Comments MEDICATION REFILL 09/19/2017 Encounter Details Date Type Department Care Team (Late st Contact Info) Description 09/19/2017 Refill [facility] - Family Medicine [address] [place] [id number] Eva Rutherford MEDICATION REFILL Social History Tobacco Use Types [...] Miscellaneous Notes * Telephone Encounter - Eva Rutherford - 09/19/2017 2:14 PM CDT Last OV: 08/19/17 Next Appt: 10/22/17 documented in this encounter Plan of Treatment Not on file documented as of this encounter Goals Goal Patient Goal Type Associated Problems Recent Progress Patient-Stated? Author Blood Pressure < 140/90 Blood Pressure 127/52(2022 8:09 AM CORE INSERTER) No Alisa Jaramillo HEMOGLOBIN A1C < 7.0 Result Component 5.4( 12:00 AM CDT) No Alisa Jaramillo documented as of this encounter Visit Diagnoses Not on filedocumented in this encounter Care Teams Pet Sitter Relationship Specialty Start Date End Date Etienne Florez MD Orthopedic Surgery 12/09/14 [place] [address] [phone] Oncology 09/15/17 documented as of this encounter
--- OUTSIDE RECORDS SUMMARY | 2024-05-26 12:42 | XMS_ITS | Encounter Summary ---
Author Organization [facility] Address [address] [place] [address] Care Team Providers Care Stress Engineer Name Role Phone Etienne Florez MD Unavailable [phone] Enrique Gonzalez MD Unavailable [phone] Reason for Visit * Reason Comments Follow-up Encounter Details Date Type Department Care Team (Late st Contact Info) Description 10/15/2017 10:00 AM CDT Office Visit [facility] Cancer Care [id number] [place] [phone] [place] [address] [phone] Malignant neoplasm of upper-outer quadrant of left breast in female, estrogen receptor positive (HCC) (Primary Dx); Use of aromatase inhibitors; Sleep apnea, unspecified [...] Sign Reading Time Taken Comments Blood Pressure 136/68 10/15/2017 10:16 AM CDT Pulse 84 10/15/2017 10:16 AM CDT Temperature 36.8 ??C (98.3 ??F) 10/15/2017 10:16 AM C DT Respiratory Rate 20 10/15/2017 10:16 AM CDT Oxygen Saturation - - Inhaled Oxygen Concentration - - Weight 93.6 kg (206 lb 4.8 oz) 10/15/2017 10:16 AM CDT Height 165.1 cm (5' 5 ) 10/15/2017 10:16 AM CDT Body Mass Index 34.33 10/15/2017 10:16 AM CDT documented in this encounter Functional [...] * Patient Instructions* Enrique Gonzalez MD - 10/15/2017 10:43 AM CDT RTC in 3 months documented in this encounter Progress Notes * Enrique Gonzalez MD - 10/15/2017 10:24 AM CDT Oncology Clinic Follow Up Note Date of Follow Up: 10/15/2017 Patient Name: Perla Leon is a 76 y.o. Female = 1940 ? Surgeon: Dr Shira Love ?? PCP: Jarrell Garrison MD Diagnsosis Stage 1 ([id number]) Malignant neoplasm upper outer quadrant of left breast, ER/ID positive, HER2 negative ?? Arimidex 1 mg po daily started on 09/17/17 HPI: Patient returned today for 1 month follow up and evaluation of AI therapy tolerance. Perla Leon??is an 76 y.o.??white woman with history of TIA, atrial fib, DM, heart murmur, partal seizures, famlila spastic paraparesis and obesity who is here with her and daughter. She initially underwent routine screening mammogram on 07/02/17 that showed a questionable spiculated mass in the upper outer left breast. Diagnostic mammogram 07/30/17 and breast ultrasound exam Confirmed [...] flashes, significant joint painor mood swings but she felt puffy even if she lost 6 lbs of weight as compared ton her prior visit. She was also admitted for 4 days (09/29 - 10/03)at [facility] for hypokalemia and arrhythmia. ?? Medical History Past Medical History: Diagnosis [...] (transient ischemic attack) 2000, 08/11/2008 Medications Reviewed in [facility] Surgical History Past Surgical History: Procedure Laterality Date ??? BREAST BIOPSY, EXCISION Left 08/25/2017 Left; EXCISION LEFT BREAST BX W/WIRE LOC IN RADIOLOGY ??? CARDIAC CATH 08/04/2002, 09/06/2010 ??? Cholecystectomy 10/28/1997 ??? COLONOSCOPY 2011 ??? Hernia Repair 01/17/2010 ??? Hysterectomy 1985 ??? Knee Arthroscopy 05/06/2001, 09/27/2003 RT KNEE [...] PRECANCERSOUS SPOTS ON RT AND LT ARM Allergies Allergies Allergen Reactions ??? Advair Diskus [...] PHQ-9: ECOG 3 PS Physical Exam BP 136/68 Pulse 84 Temp 98.3 ??F (36.8 ??C) (Temporal) Resp 20 Ht 5' 5 (1.651 m) Wt 206 lb 4.8 oz (93.6 kg) BMI 34.33 kg/m2 GENERAL: in no acute distress HEENT: [...] petechiae NEURO: Alert & Oriented x 3. Cranial nerves III-XII intact, No obvious motor or sensory deficitin all 4 extremities 08/25/17, Left breast mass, lumpectomy: -- ??Infiltrating ductal [...] -- ??Provisional TNM stage T1c, NX, MX ER: ??Positive ??(96.6 ?%, intensity: strong) ID: ??Positive (22.5 ?%, intensity: moderate) Her-2-osmin: ?Not over-expressed (score 1+) Ki-67: ?Borderline proliferation (19.4 ?%) ?? 09/08/17, ?Left axillary sentinel lymph node, excision: -- ??Lymph node # 1: No metastatic tumor detected in one lymph node (0/1) -- ??Lymph node # 2: No metastatic tumor detected in one lymph node (0/1) ? Imaging & other studies: Digital screening mammogram on 07/02/2017: Questioned spiculated mass in the upper outer left breast (CC 16, MLO 20). No mammographic evidence of malignancy in the right breast. ?? Left Breast US on 07/30/17: Reveals a hypoechoic density at the site of the spiculated distortion mammographically at 1:00 to 2:00, 5 cm from the nipple, measuring 8 x 6 x 8 mm. Survey images of the axilla do not reveal abnormal adenopathy. Findings are suspicious and tissue diagnosis would be warranted. ? Diagnostic mammogram 07/30/17: A small spiculated distortion persists in the left breast at 1 to 2 o'clock 5 cm from the nipple. Directed ultrasound was performed and reveals a correlate ?? Assessment & Plan ?? 1. Malignant neoplasm of upper-outer quadrant of left breast in female, estrogen receptor positive,Stage IA ?? 2. Obesity ?? 3. ECOG 3 Poor Functional status ?? 4. Family history of breast cancer 5. Hypokalemia on KCL replacement - Started on Arimidex on 09/17/17 and is tolerating it well. - DEXA scheduled for 10/29/17 - Will f/u with her in 3 months Enrique Gonzalez MD 10/15/2017 1:12 PM documented in this encounter Plan of Treatment Not on file documented as of this encounter Goals Goal Patient Goal Type Associated Problems Recent Progress Patient-Stated? Author Blood Pressure < 140/90 Blood Pressure 127/52(2022 8:09 AM CREDIT CONTROL ASSISTANT) No Alisa Jaramillo HEMOGLOBIN A1C < 7.0 Result Component 5.4( 12:00 AM CDT) No Alisa Jaramillo documented as of this encounter Visit Diagnoses Diagnosis Malignant neoplasm of upper-outer quadrant of left breast in female, estrogen receptor positive (HCC)- Primary Use of aromatase inhibitors Sleep apnea, unspecified type Class 2 obesity with body mass index (BMI) of 35.0 to 35.9 in adult, unspecified obesity type, unspecified whether serious comorbidity present documented in this encounter Care Teams Stress Engineer Relationship Specialty Start Date End Date Etienne Florez MD Orthopedic Surgery 12/09/14 [place] [address] [phone] Oncology 09/15/17 documented as of this encounter
--- OUTSIDE RECORDS SUMMARY | 2024-05-26 12:42 | XMS_ITS | Encounter Summary ---
Author Organization [facility] Health Address [address] [place] [address] Care Team Providers Care Cemetery Manager Name Role Phone Etienne Florez MD Unavailable Enrique Gonzalez MD Unavailable [phone] Reason for Visit * Reason Onset Date Comments General 10/23/2017 Encounter Details Date Type Department Care Team (Late st Contact Info) Description 10/23/2017 Telephone [facility] Neurosciences [address] [facility] [address] [place] [address] [place] [address] [facility] [address] [place] [address] General Social History Tobacco Use [...] Telephone Encounter - Laisha Swift MA - 10/23/2017 1:14 PM CDT Pts daughter Bekah stating the pt will have a biopsy on her thyroid. Bekah is concern that the pt will have an spasm while getting the biopsy. Bekah is requesting to speak with you regarding this. Please call Bekah at [phone]. documented in this encounter Plan of Treatment Not on file documented as of this encounter Goals Goal Patient Goal Type Associated Problems Recent Progress Patient-Stated? Author Blood Pressure < 140/90 Blood Pressure 127/52(2022 8:09 AM STAGECRAFT PROFESSOR) No Alisa Jaramillo HEMOGLOBIN A1C < 7.0 Result Component 5.4( 12:00 AM CDT) No Alisa Jaramillo documented as of this encounter Visit Diagnoses Not on filedocumented in this encounter Care Teams Cemetery Manager Relationship Specialty Start Date End Date Etienne Florez MD Orthopedic Surgery 12/09/14 [place] [id number] [address] Oncology 09/15/17 documented as of this encounter
--- OUTSIDE RECORDS SUMMARY | 2024-05-26 12:42 | XMS_ITS | Encounter Summary ---
Author Organization [facility] Health Address [address] [place] [address] Care Team Providers Care Venue Manager Name Role Phone Etienne Florez MD Unavailable Enrique Gonzalez MD Unavailable [phone] Encounter Details Date Type Department Care Team (Latest Contact Info) Description 09/11/2017 2:00 PM CDT - 10/12/2017 11:59 PM T Hospital Encounter [facility] - Radiation Oncology [address] [place] [address] Jovanni Persaud MD [address] [place] [address] Discharge Disposition: Home or Self Care [...] Sign Reading Time Taken Comments Blood Pressure 121/50 09/11/2017 2:57 PM CDT Pulse 97 09/11/2017 2:57 PM CDT Temperature - - Respiratory Rate - - Oxygen Saturation - - Inhaled Oxygen Concentration - - Weight 91.6 kg (202 lb) 09/11/2017 2:57 PM CDT Height - - Body Mass Index 33.61 09/08/2017 8:08 AM CDT documented in this encounter Functional [...] 1 tablet by mouth once daily for 30 days Reasons: 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 30 tablet 09/17/2017 10/15/2017 aspirin (ASPIRIN) 81 MG tablet Take 81 mg by mouth once daily 09/20/2020 clopidogrel (PLAVIX) 75 MG tablet Take 1 tablet by mouth at bedtime 90 tablet 2 09/17/2017 02/09/2018 Cyanocobalamin 1000 MCG Take by mouth once daily. 05/21/2022 empagliflozin (JARDIANCE) 10 MG tablet Take 1 Tab by mouth once daily 90 Tab 3 10/21/2016 02/09/2018 esomeprazole (NEXIUM) 40 MG capsule Take 1 Cap by mouth once daily 90 Cap 3 10/21/2016 11/11/2017 FLECAINIDE ACETATE PO Take 50 mg by [...] by mouth daily with breakfast 30 capsule 09/09/2017 10/22/2017 menthol-zinc oxide (CALMOSEPTINE) 0.44-20.6 % ointment Apply to affected area as needed for Other 09/14/2020 metOLazone (ZAROXOLYN) 2.5 MG tablet Take 1 tablet by mouth twice a week on Friday and 05/30/2022 potassium chloride (KLOR-CON 10) 10 MEQ tablet The patient should only Take 4 tabs with breakfast 360 tablet 1 09/19/2017 02/09/2018 psyllium (METAMUCIL) 58.6 % powderIndications:Cons tipation Take 1 packet by mouth as needed Reasons: Constipation 05/06/2019 rosuvastatin (CRESTOR) 10 MG tablet Take 1 Tab by mouth at bedtime 90 Tab 3 11/05/2016 10/27/2017 verapamil SR 24hr (VERELAN) 240 MG capsule Take 240 mg by mouth once daily 11/23/2019 documented as of this encounter Consult Notes * Jovanni Persaud MD - 09/11/2017 8:47 PM CDT [facility] CONSULTATION REPORT PATIENT: LOC ANDERSON MR#: [id number] ADMIT DATE: 09/11/2017 CSN: [id number] CONSULT DATE: 09/11/2017 : 1940 ATTENDING PHYS: JOVANNI PERSAUD MD ROOM: CONSULTING PHYSICIAN: JOVANNI PERSAUD MD RADIATION ONCOLOGY CONSULTATION NOTE REFERRING PHYSICIANS: Jarrell Garrison MD, Shira Love DO; Enrique Gonzalez MD. The patient is a 76-year-old white female patient with a new diagnosis of infiltrating ductal carcinoma of the left breast, post lumpectomy, sentinel node biopsy, stage T1 N0. She is now seen for discussion about post lumpectomy and radiation therapy. She is ER positive, NY positive, HER-2 negative, and Ki-67 of 19%. 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 She has currently gotten to the point that she requires a walker to walk most of the time. She has a fair amount of paresthesias in the lower extremities and has several falls. In addition, she has a few other medical issues outlined below. Her screening mammogram showed a spiculated distortion in the left breast. She had an ultrasound which confirmed a hypoechoic area at 1'o clock and 2'o clock position in the left breast. It measured 0.8 cm. Patient underwent a CTA, ultrasound-guided needle localization was done and she underwent an excision of biopsy/lumpectomy on 08/25/2017 and this showed an infiltrating ductal carcinoma grade 2. Tumor size was 1.1 x 0.8 x 0.7 cm. There was also a grade 2 DCIS of about 10% in the tumor. All surgical margins were clear. The closest margin was 0.4 cm. The tumor was ER positive at 97%, NY positive at 23%, HER-2 negative, and Ki- 67 was 19.4%. Subsequently, the patient underwent a sentinel node biopsy on 09/08/2017. Two sentinel lymph nodes were obtained and both of them were negative for metastatic disease. The patient is now seen for discussion about the role of radiation therapy. She is also scheduled to see Dr. Gonzalez at some point. 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 She has history of diabetes, hypertension, atrial fibrillation. She did have cardiac cath twice. Apparently did not require any stents. She also has had at least 2 TIAs. She has ambulatory difficulty and has at least a number of falls in the past year. She has had pneumonia few times, most recently in 2010. Previously in 2005 and 1989. She also has multiple skin procedures done for precancerous lesions. PAST SURGICAL HISTORY: Breast procedures as above. Right knee arthroscopy, pelvic prolapse reconstruction, hernia repair, nose fracture repair, vocal cord ulcer removal, cholecystectomy, total hysterectomy. GYNECOLOGIC HISTORY: G3, P3. She was on hormone replacement therapy but developed TIA and so this was stopped. FAMILY HISTORY: Mother had a breast cancer. Paternal aunt had a stomach cancer. Maternal aunt had a colon cancer. Maternal cousin, niece had breast cancers. SOCIAL HISTORY: She is and is accompanied by her and her daughter. 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 No history of smoking or alcohol intake. No previous history of smoking or alcohol intake. MEDICATIONS: She is on glimepiride, Januvia, Levemir, Jardiance, verapamil, Nexium, metolazone, Lasix, Amitiza, potassium, amitriptyline, Plavix, Crestor, aspirin. She is on eyedrops, multivitamins, B12, and Metamucil. ALLERGIES: SHE IS SENSITIVE TO FLUTICASONE, PIPER LONGUM, SALMETEROL, ADVAIR, ARICEPT, DILTIAZEM, METFORMIN. EXISTING MEDICAL CONDITIONS: Include sleep apnea requiring a CPAP. REVIEW OF SYMPTOMS: CONSTITUTIONAL: Denies any constitutional complaints or weight loss. Some ringing in the ears. Cardiovascular: No cardiovascular complaints. Some shortness of breath on exertion. GI: Constipation and is on Metamucil. : Nocturia twice. Some urinary stress incontinence. MUSCULOSKELETAL: Issues relating to spastic paralysis. NEUROLOGIC: Familial spastic paralysis, paresthesias, lower extremity paresthesias, some dizziness, and diagnosed having small-vessel disease on imaging studies. ECOG score 2. PAIN ASSESSMENT: No pain. PHYSICAL EXAMINATION: VITAL SIGNS: Weight 202 pounds. Blood pressure 121/50, pulse 97. GENERAL: This is a somewhat obese, elderly, white female patient. NEURO: She is alert, coherent, well oriented. No obvious cranial nerve abnormalities. LYMPHATICS: No supraclavicular adenopathy. Axillary and breast surgical scars on the left side are healing well. Mild seroma in the axilla. Good movement in the left shoulder. No other palpable masses in the breast. Right breast without any masses. MUSCULOSKELETAL: No spine tenderness. Weakness in the both legs. Upper extremity strength is normal. IMPRESSION: T1 N0 left breast cancer, post lumpectomy, sentinel node biopsy. ER/NY positive, HER-2 negative, Ki-67 of 19%. The patient will benefit from radiation therapy to the left breast. Typically current recommendations would be a dose of 4256 cGy in 3 weeks if her anatomy permits. In her case, since she has multiple medical issues and she is strongly ER positive, if she is able to get hormonal therapy, we may review the possibility of forgoing the radiation treatments. I had an extensive discussion pertaining this with the patient and her family. For now, we will hold off any final radiation related decisions until she sees Dr. Gonzalez. If she will not get any hormonal therapy, we may strongly consider a hypofractionated course of radiation therapy to the left breast. Since she lives in [place], she intends to have her radiation treatments done there, if needed. All their questions were answered. Thank you for asking us to participate in the care of this patient. Jovanni Persaud MD VRD/OLEGARIO #: [id number] cc: MD Shira Montoya, DO Enrique Gonzalez MD documented in this encounter Plan of Treatment Not on file documented as of this encounter Goals Goal Patient Goal Type Associated Problems Recent Progress Patient-Stated? Author Blood Pressure < 140/90 Blood Pressure 127/52(2022 8:09 AM PIT OPERATOR) No Alisa Jaramillo HEMOGLOBIN A1C < 7.0 Result Component 5.4( 12:00 AM CDT) No Alisa Jaramillo documented as of this encounter Visit Diagnoses Not on filedocumented in this encounter Care Teams Venue Manager Relationship Specialty Start Date End Date Etienne Florez MD Orthopedic Surgery 12/09/14 [place] [id number] [address] Oncology 09/15/17 documented as of this encounter
--- OUTSIDE RECORDS SUMMARY | 2024-05-26 12:42 | XMS_ITS | Encounter Summary ---
Author Organization [facility] Health Address [address] [facility] [place] [address] Care Team Providers Care Scheduling Specialist Name Role Phone Etienne Florez MD Unavailable Enrique Gonzalez MD Unavailable [phone] Encounter Details Date Type Department Care Team (Late st Contact Info) Description 10/29/2017 Orders Only [facility] Health Cancer Care [address] [address] Alicia Gustafson, RELIGION DEPARTMENT CHAIR-[facility] [address] [address] Social History Tobacco Use Types Packs/Day [...] as of this encounter Progress Notes * Alicia Gustafson APRN-CNP - 10/29/2017 3:22 PM CDT Bone density demonstrates osteopenia. Pt is on AI with higher risk of developing osteoporosis. I reviewed the results with the patient. Instructed her to begin taking calcium 600 mg + vitamin D 400 (caltrate + D) twice a day. Will also start Prolia, bisphosphonate, once insurance approval is obtained, will start with her next office visit 01/14/18 documented in this encounter Plan of Treatment Not on file documented as of this encounter Goals Goal Patient Goal Type Associated Problems Recent Progress Patient-Stated? Author Blood Pressure < 140/90 Blood Pressure 127/52(2022 8:09 AM GLASS CUTTING MACHINE FEEDER) No Alisa Jaramillo HEMOGLOBIN A1C < 7.0 Result Component 5.4( 12:00 AM CDT) No Alisa Jaramillo documented as of this encounter Visit Diagnoses Not on filedocumented in this encounter Care Teams Scheduling Specialist Relationship Specialty Start Date End Date Etienne Florez MD Orthopedic Surgery 12/09/14 [place] [id number] [id number] Oncology 09/15/17 documented as of this encounter
--- OUTSIDE RECORDS SUMMARY | 2024-05-26 12:42 | XMS_ITS | Encounter Summary ---
Author Organization [facility] Address [address] [facility] [place] [address] Care Team Providers Care Mold Inspector Name Role Phone Etienne Florez MD Unavailable Enrique Gonzalez MD Unavailable [phone] Reason for Visit * Reason Comments Post-Op removal of lymph nod e Encounter Details Date Type Department Care Team (Late st Contact Info) Description 09/16/2017 1:20 PM CDT Office Visit [facility] - Surgery [address] [place] [address], [address] [address] [place]queline Mosqu[place] [id number] [place] [phone] Postop check (Primary Dx); Malignant neoplasm of upper-outer quadrant of left [...] - - Weight 91.6 kg (202 lb) 09/16/2017 1:50 PM CDT Height 165.1 cm (5' 5 ) 09/16/2017 1:50 PM CDT Body Mass Index 33.61 09/16/2017 1:50 PM CDT documented in this encounter Functional [...] this encounter Patient Instructions * Patient Instructions* Dionna Fowler - 09/16/2017 1:51 PM CDT Patient's medications and allergies were reviewed with the patient today. Patient was instructed tocontact primary care physician or ordering provider with any questions regarding medications. documented in this encounter Progress Notes * Jacqueline Mosqueda DO - 09/16/2017 1:56 PM CDT Perla Leon is a 76 y.o. female who is here for a postoperative visit following Left Breast Excisional Biopsy with Needle Localization Left Moncure Lymph Node Biopsy Referring physician is Jarrell Garrison MD. Denies fever, chills, or drainage from surgical site. She does report cadence pain at surgical axillarysite. Tolerating regular diet and having normal bowel movements. She presents today with her and daughter. She is overall pleased and happy with her results. Exam Incisions: Clean and intact, healing welling. No drainage or erythema noted. Swelling present at the left axillary region. Pathology: Left breast mass, lumpectomy: -- Infiltrating ductal [...] MX ER: Positive (96.6 %, intensity: strong) SD: Positive (22.5 %, intensity: moderate) Her-2-osmin: Not over-expressed (score 1+) Ki-67: Borderline proliferation (19.4 %) Left axillary sentinel lymph node, excision: -- Lymph node # 1: No metastatic tumor detected in one lymph node (0/1) -- Lymph node # 2: No metastatic tumor detected in one lymph node (0/1) A/P: PO Left Breast Excisional Biopsy with Needle Localization Left breast Cancer ER/SD (+), negative SLN History of lymphedema lower extremities She has seen Dr. Persaud, she may not be recommended radiation therapy due to her age and multiplecomorbidities as well as the size of her cancer. She is scheduled to see Dr. Gonzalez later this week. We will help her check on appointment with genetic counseling. She will follow up with me in six months. Continue to recommend intermittent leg elevation and compression stockings. This document was scribed by Ange Patterson for Dr. Jacqueline Mosqueda. I have reviewed the above note and verify that I was present during this visit and the information provided is accurate. documented in this encounter Miscellaneous Notes * Addendum Note - Jacqueline Mosqueda DO - 09/16/2017 5:10 PM CDTAddended by: JACQUELINE MOSQUEDA on: 09/16/2017 05:10 PM Modules accepted: Orders documented in this encounter Plan of Treatment Not on file documented as of this encounter Goals Goal Patient Goal Type Associated Problems Recent Progress Patient-Stated? 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
--- OUTSIDE RECORDS SUMMARY | 2024-05-26 12:42 | XMS_ITS | Encounter Summary ---
Author Organization [facility] Health Address [address] [place] [address] Care Team Providers Care Vp Integration Name Role Phone Etienne Florez MD Unavailable [phone] Enrique Gonzalez MD Unavailable [phone] Reason for Visit * Reason Onset Date Comments Question 11/05/2017 Encounter Details Date Type Department Care Team (Late st Contact Info) Description 11/05/2017 Telephone [facility] Cancer Care [id number] [place] [address] [place] [id number] [address] Question Social History Tobacco Use Types [...] Miscellaneous Notes * Telephone Encounter - Alice Venegas RN - 11/05/2017 11:14 AM CDT Called patient, name and date of were verified by caller. Patient asking for clarification ofdosage on calcium and vitamin d. Let her know that she needs to take calcium 600mg + vitamin D 400 and that she needs to take it 2 times per day. Patient wrote it down and states understanding. * Telephone Encounter - Mi Montenegro - 11/05/2017 9:26 AM CDT Pt is confused on what dosage she needs on her vitamin a and vitamin d. Please call pt back thanks. documented in this encounter Plan of Treatment Not on file documented as of this encounter Goals Goal Patient Goal Type Associated Problems Recent Progress Patient-Stated? Author Blood Pressure < 140/90 Blood Pressure 127/52(2022 8:09 AM PIGS FEET FINISHER) No Alisa Jaramillo HEMOGLOBIN A1C < 7.0 Result Component 5.4( 12:00 AM CDT) No Alisa Jaramillo documented as of this encounter Visit Diagnoses Not on filedocumented in this encounter Care Teams Vp Integration Relationship Specialty Start Date End Date Etienne Florez MD Orthopedic Surgery 12/09/14 [place] [address] [address] Oncology 09/15/17 documented as of this encounter
--- OUTSIDE RECORDS SUMMARY | 2024-05-26 12:42 | XMS_ITS | Encounter Summary ---
Author Organization [facility] Address [address] [place] [address] Care Team Providers Care Chief Compressor Station Engineer Name Role Phone Etienne Florez MD Unavailable [phone] Reason for Visit * Auth/Cert Specialty Diagnoses / Procedures Referred By Contac t Referred To Contact Procedures BIOPSY/EXCISION AXILLARY LYMPH NODE Referral ID Status Reason Start Date Expiration Date Visits Re quested Visits Authorized [id number] 1 1 Encounter Details Date Type Department Care Team (Late st Contact Info) Description 09/08/2017 10:21 AM CDT Anesthesia Event [facility] - Perioperative Surgery [address] [place] [address] Eusebio Montes De Oca MD [address] [facility] [place] [address] [place] [address] [place] [address] Anesthesia Record Procedure Summary Procedure Name Responsible Anesthesiologist Anesthesia Start Time Anesthesia Stop Time LEFT BREAST SENTINEL LYMPH NODE BIOPSY (Left: Axilla) Eusebio Montes De Oca MD 09/08/17 1021 09/08/17 1122 Events Date Time Event Comment 09/08/2017 0849 1021 An Start 1021 An Start Data 1025 PT Reassessment 1036 Time Out Anesthesia part icipated in timeout at the time documented in the record by nursing 1121 Electnc Sig 1121 an stop data 1122 An Stop Meds Name Total midazolam 2 mg/2mL injection 2 mg fentaNYL 100 mcg/2mL injection 100 mcg ceFAZolin (ANCEF) syringe 2,000 mg 2 g lactated ringers infusion 500 mL propofol injection 10 mg/mL (ENDO USE) 4 6 mL * Agents Name Exp. Sevoflurane O2 Insp. Sevoflurane * Blood No blood administrations on file. Lines, Drains, and Airways Type Details Placement Removal Peripheral IV Date: 09/08/17; Time: 08; Orientation: Right; Placed By: matt berg rn; Length (in): 1 1/4in; Tolerance: Well 09/08/17 0845 by Stacey Berg RN 09/08/17 1259 by Jennifer Garnett RN Procedural Site (Incision) 09/08/17; 1045; Left; Axilla; 09/08/17; 202609/08/17 1045 by Mamie Puri RN 09/08/172026 by Generic, Auto Release documented in this encounter Social History Tobacco [...] as of this encounter Progress Notes * Berna Ignacio APRN-CRNA - 09/08/2017 11:24 AM CDT ANESTHESIA POSTOP EVALUATION NOTE Procedure: LEFT BREAST SENTINEL LYMPH NODE BIOPSY (Left Axilla) Perla Leon is a 76 y.o. female Patient Vitals for the past 6 hrs: BP Temp Pulse Resp SpO2 SP02 Frequency O2 DEVICE Pain Scale/Observation Pain Rating Score #1 Functional Goal # Sedation Level Additional pain sites? 09/08/17 1121 132/58 - 77 16 98 % - - - - - - - 09/08/17 0808 147/81 98.4 ??F (36.9 ??C) 81 16 93 % Spot Check Room Air N 0 5 1- Awake and alert No Anesthesia Type: MAC * No Diagnosis Codes entered * Postop Diagnosis: See Surgeon Note Mental Status: sufficiently recovered from acute administration of anesthesia to participate in theevaluation and awake Neuro Status: No numbess, tingling or visual disturbances Respiratory Function: natural Cardiac Function: stable Postop Pain: acceptable to the patient Postop Hydration: adequate Postop Nausea: none Assessment: no apparent anesthetic complications, patient tolerated procedure well and no evidence of recall Patient Disposition: Release from Anesthesia Care documented in this encounter Consult Notes * Berna Ignacio APRN-CRNA - 09/08/2017 8:48 AM CDT ANESTHESIA PREOPERATIVE EVALUATION NOTE Procedure: LEFT BREAST SENTINEL LYMPH NODE BIOPSY (INJECTION AT 1230) (Axilla) Vitals: Patient Vitals for the past 6 hrs: BP Temp Pulse Resp SpO2 SP02 Frequency O2 DEVICE Pain Scale/Observation Pain Rating Score #1 Functional Goal # Sedation Level Additional pain sites? 09/08/17 0808 147/81 98.4 ??F (36.9 ??C) 81 16 93 % Spot Check Room Air N 0 5 1- Awake and alert No ANESTHESIA PRE-EVALUATION NOTE Physical Exam: Orientation: Orientation X3 Airway/Mallampati Score: III Mouth Opening Distance: 2.5 fingerwidths Neck ROM: full TM Distance: < 3 FB Teeth: caps/crowns and chipped Heart: regular rate rhythm and murmur Lungs: normal Abdomen Exam: obese Review of Systems: History of anesthetic complications: No GERD: GERD: Yes, well controlled Poor Exercise Tolerance: Yes Recent Chest Pain: No Shortness of Breath: No AICD/Pacemaker: No Renal Disease: No Diagnostic Tests: Lab(s) reviewed: Yes. Other Findings: No cp or sob with > 4 mets of exertion ANESTHESIA PLAN ASA Score: 3 NPO Status: No solids since midnight Anesthesia Plan: MAC Planned Induction: intravenous Planned Postop Destination: OPS Anesthetic plan was discussed with: patient The patient's procedural Anesthetic Plan with discussed with the fast food assistant restaurant manager and FUNERAL SERVICE APPRENTICE. BMI, Height, Weight Tobacco History Estimated body mass index is 35.94 kg/(m^2) as calculated from the following: Height as of this encounter: 1.651 m (5' 5 ). Weight as of this encounter: 98 kg (216 lb). History Smoking Status ??? Never Smoker Smokeless Tobacco ??? Never Used Alcohol History Drug History History Alcohol Use No History Drug Use No Outpatient Medications: Inpatient Medications: No current outpatient prescriptions on file. Current Facility-Administered Medications Medication Dose Last Dose ??? lidocaine 0.5 mL 0.5 mL at 09/08/17821 ??? lactated ringers ??? ceFAZolin 2 g Allergies: Allergies Allergen Reactions ??? Advair Diskus YEAS INFECTION ??? Aricept [Donepezil] Other I dont remember ??? Diltiazem Swelling ??? Metformin Diarrhea ??? Fluticasone Diarrhea ??? Piper Longum ??? Salmeterol Diarrhea ??? Sotalol Other Hair loss Problem List: Patient Active Problem List Diagnosis Date Noted ??? Infiltrating ductal carcinoma of left breast 09/02/2017 Priority: Not Prioritized ??? Hypokalemia 08/26/2017 Priority: Not Prioritized ??? Other chest pain 08/25/2017 Priority: Not Prioritized ??? Breast mass, left 08/25/2017 Priority: Not Prioritized ??? Long-term insulin use 06/12/2016 Priority: Not Prioritized ??? 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 Glaucoma 01/07/2011 OPEN ANGLE ??? Asthma 01/07/2011 ??? HTN (hypertension) 01/07/2011 [...] PRECANCERSOUS SPOTS ON RT AND LT ARM Lab Tests: Recent Labs Component Name 08/26/17 0413 12/28/16 1814 WBC 12.6* - 7.6 HGB 10.0* - 11.5* HCT 33.4* - 37.1 PLTCOUNT 386 - 318 INR - - 1.0 - = values in this interval not displayed. Recent Labs Component Name 09/08/17 0807 SODIUM 142 POTASSIUM 3.4* CHLORIDE 109* CO2 27 BUN 19 CREATININE 0.84 Recent Labs Component Name 09/08/17 0807 08/26/17 0413 06/12/17 0823 GLUCOSE 136* 167* - 90 CALCIUM 9.7 9.3 - 10.4 MAGNESIUM - 2.6 - - ALT - - - 21 AST - - - 17 - = values in this interval not displayed. No results for input(s): HCG in the last 77312 hours. documented in this encounter Miscellaneous Notes * Anesthesia Transfer of Care - Berna Ignacio APRN-CRNA - 09/08/2017 11:22 AM CDT ANESTHESIA TRANSFER OF CARE NOTE Today's Date: 09/08/2017 Date of : 1940 Patient: Perla Leon Procedure(s): LEFT BREAST SENTINEL LYMPH NODE BIOPSY Surgeon(s): Primary: Shira Love DO Preop Diagnosis: * No Diagnosis Codes entered * * No Diagnosis Codes entered * . Allergies Allergen Reactions ??? Advair Diskus YEAS INFECTION ??? Aricept [Donepezil] Other I dont remember ??? Diltiazem Swelling ??? Metformin Diarrhea ??? Fluticasone Diarrhea ??? Piper Longum ??? Salmeterol Diarrhea ??? Sotalol Other Hair loss Vitals: Patient Vitals for the past 3 hrs: BP Pulse Resp SpO2 09/08/17 1121 132/58 77 16 98 % Lines, Drains, and Airways Type Details Placement Removal Peripheral IV 09/08/17; 0845; Right; Forearm; j joann rn; 1 1/4in; 20 Gauge; harp; Anatomical Landmarks; 2; Trans Dermal; Well 09/08/17 0845 by Stacey Berg RN Intraprocedure I/O Totals Anesthesia Other Output Estimated Blood Loss 20 mL propofol injection 10 mg/mL (ENDO USE) Volume 46 lactated ringers infusion Volume infused 500 ml Transport Airway: spontaneous respirations Complications: None Handoff Given? Yes JUANITO Schultz documented in this encounter Plan of Treatment Not on file documented as of this encounter Goals Goal Patient Goal Type Associated Problems Recent Progress Patient-Stated? Author Blood Pressure < 140/90 Blood Pressure 127/52(2022 8:09 AM SENIOR TECHNICAL BUSINESS ANALYST) No Alisa Jaramillo HEMOGLOBIN A1C < 7.0 Result Component 5.4( 12:00 AM CDT) No Alsia Jaramillo documented as of this encounter Visit Diagnoses Not on filedocumented in this encounter Administered Medications Inactive Administered Medications - up to 3 most recent administrations Medication Order MAR Action Action Date Dose Rate Site ceFAZolin (ANCEF) syringe 2,000 mg 2,000 mg (2 g), Intravenous, PRE-OP MULTIPLE, Starting on Fri09/08/17 at 0718, Until Fri09/08/17 at 1527, Administer 30 minutes prior to surgical incision. Administer over 3-5 minutes., Indication for anti-infective therapy: Surgical prophylaxis, Site of anti-infective therapy: Wound, Pre-op $ Given 09/08/2017 10:18 AM CDT 2 g fentaNYL (PF) (SUBLIMAZE) injection PRN, Starting on Fri09/08/17 at 1026, Until Fri09/08/17 at 1124, Anesthesia Intra-op $ Given 09/08/2017 11:15 AM CDT 50 mcg $ Given 09/08/2017 10:26 AM CDT 50 mcg midazolam (VERSED) injection PRN, Starting on Fri09/08/17 at 1019, Until Fri09/08/17 at 1124, Anesthesia Intra-op $ Given 09/08/2017 10:19 AM CDT 2 mg propofol (DIPRIVAN) injection CONTINUOUS PRN, Starting on Fri09/08/17 at 1030, Until Fri09/08/17 at 1124, Anesthesia Intra-op $ New Bag/Syringe 09/08/2017 10:30 AM CDT documented in this encounter Care Teams Chief Compressor Station Engineer Relationship Specialty Start Date End Date Etienne Florez MD Orthopedic Surgery 12/09/14 documented as of this encounter
--- OUTSIDE RECORDS SUMMARY | 2024-05-26 12:42 | XMS_ITS | Encounter Summary ---
Author Organization [facility] Address [address] [place] [address] Care Team Providers Care Digital Print Operator Name Role Phone Etienne Florez MD Unavailable Enrique Gonzalez MD Unavailable [phone] Reason for Visit * Reason Onset Date Comments Forms 09/17/2017 for liftchair Encounter Details Date Type Department Care Team (Late st Contact Info) Description 09/17/2017 Telephone [facility] Neurosciences [address] [facility] [address] [place] [phone] [place] [address] [facility] [place] [address] [place] [phone] Forms (for liftchair) Social History Tobacco Use Types Packs/Day Years [...] * Telephone Encounter - Eva Sinha - 09/18/2017 2:18 PM CDT I filled out the form and mailed it to the patient. * Telephone Encounter - Sejal Chan - 09/17/2017 8:55 AM CDT Pt called said that she needs to have Dr. Ross fill out this form in order for the patient to be able to get the lift chair. Pt's insurance needs the form in order for them to pay for the mechanics of the chair or otherwise she will not be able to get the chair. Patient will dropping off the form today. documented in this encounter Plan of Treatment Not on file documented as of this encounter Goals Goal Patient Goal Type Associated Problems Recent Progress Patient-Stated? Author Blood Pressure < 140/90 Blood Pressure 127/52(2022 8:09 AM PERINATAL INSTRUCTOR) No Alisa Jaramillo HEMOGLOBIN A1C < 7.0 Result Component 5.4( 12:00 AM CDT) No Alisa Jaramillo documented as of this encounter Visit Diagnoses Not on filedocumented in this encounter Care Teams Digital Print Operator Relationship Specialty Start Date End Date Etienne Florez MD Orthopedic Surgery 12/09/14 [place] [address] [phone] Oncology 09/15/17 documented as of this encounter
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
--- OUTSIDE RECORDS SUMMARY | 2024-05-26 12:42 | XMS_ITS | Encounter Summary ---
Author Organization [facility] Address [address] [facility] [place] [address] Care Team Providers Care Repair Servicer Name Role Phone Etienne Florez MD Unavailable Enrique Gonzalez MD Unavailable [phone] Reason for Referral * Radiology Services (Routine) - Closed Specialty Diagnoses / Procedures Referred By Contac t Referred To Contact Mammography Diagnoses Infiltrating ductal carcinoma of left breast (HCC) Use of aromatase inhibitors Procedures DEXA BONE DENSITY AXIAL SKELETON DEXA BONE [place]ENSITY [place] [address] [address] [facility] [address] [address] Referral ID Status Reason Start Date Expiration Date Visits Re quested Visits Authorized [id number] Closed 09/17/2017 03/16/2018 1 1 Reason for Visit * Radiology Services (Routine) - Closed Specialty Diagnoses / Procedures Referred By Alejandrina vale Referred To Contact Mammography Diagnoses Infiltrating ductal carcinoma of left breast (HCC) Use of aromatase inhibitors Procedures DEXA BONE DENSITY AXIAL SKELETON DEXA BONE [place]ENSITY [place] [address] [address] [facility] [address] [address] Referral ID Status Reason Start Date Expiration Date Visits Re quested Visits Authorized [id number] Closed 09/17/2017 03/16/2018 1 1 Encounter Details Date Type Department Care Team (Latest Contact Info) Description 10/29/2017 10:30 AM CDT - 10/29/2017 11:59 PM CDT Hospital Encounter [facility] [address] [place] [address] [place] [address] [address] Discharge Disposition: Home or Self [...] < 140/90 Blood Pressure 127/52(2022 8:09 AM ROOF SHINGLER) No Alisa Jaramillo HEMOGLOBIN A1C < 7.0 Result Component 5.4( 12:00 AM CDT) No Alisa Jaramillo documented as of this encounter Procedures Procedure Name Priority Date/Time Associated Diagnosis Comments DEXA BONE DENSITY AXIAL SKELETON Routine 10/29/2017 10:58 AM CDT Infiltrating ductal carcinoma of left breast (HCC) Use of aromatase inhibitors documented in this encounter Results * DEXA BONE DENSITY AXIAL SKELETON (10/29/2017 [...] 11:17 AM Enrique Gonzalez MD DEXA ORDERABLES documented in this encounter Visit Diagnoses Diagnosis Infiltrating ductal carcinoma of left breast (HCC) Use of aromatase inhibitors documented in this encounter Care Teams Repair Servicer Relationship Specialty Start Date End Date Etienne Florez MD Orthopedic Surgery 12/09/14 [place] [address] [address] Oncology 09/15/17 documented as of this encounter
--- OUTSIDE RECORDS SUMMARY | 2024-05-26 12:42 | XMS_ITS | Encounter Summary ---
Author Organization [facility] Address [address] [place] [address] Care Team Providers Care Science Faculty Member Name Role Phone Etienne Florez MD Unavailable [phone] Enrique Gonzalez MD Unavailable [phone] Reason for Visit * Reason Onset Date Comments Referral 11/17/2017 Encounter Details Date Type Department Care Team (Late st Contact Info) Description 11/17/2017 Telephone [facility] - Family Medicine [address] [place] [address] [address] [place] [address] Jarrell Garrison MD [address] [facility] [address] [place] [address] Referral Social History Tobacco Use Types Packs/Day [...] Telephone Encounter - Jarrell Garrison MD - 11/17/2017 2:41 PM CDT Signed * Telephone Encounter - Laisha Osman - 11/17/2017 2:31 PM CDT Patient requested a call back once the referral goes through and her appointment can be made. * Telephone Encounter - Shayy Abraham - 11/17/2017 2:27 PM CDT Pend the referral to the dr to sign and left a voicemail for the patient in regards to this. * Telephone Encounter - Jarrell Garrison MD - 11/17/2017 2:15 PM CDT OK to refer to Dr. Truong * Telephone Encounter - Laisha Osman - 11/17/2017 2:06 PM CDT Who is calling? self If other than self is caller listed on the HIPAA? No If caller is anyone other than listed above, where are they calling from? Na What is the reason for call?Patient is requesting a referral to be seen by a climatology professor, for stomach due to having black spots in the stool. Condition has been going on for possibly longer than 6 months started off as small spots now the spots are the size of a dime. No other symptoms. Please follow up with patient. Expected Response from the Clinic? ( ex. Call back, etc..) call back documented in this encounter Plan of Treatment Not on file documented as of this encounter Goals Goal Patient Goal Type Associated Problems Recent Progress Patient-Stated? Author Blood Pressure < 140/90 Blood Pressure 127/52(2022 8:09 AM GRAPHICS SPECIALIST) No Alisa Jaramillo HEMOGLOBIN A1C < 7.0 Result Component 5.4( 12:00 AM CDT) No Alisa Jaramillo documented as of this encounter Visit Diagnoses Not on filedocumented in this encounter Care Teams Science Faculty Member Relationship Specialty Start Date End Date Etienne Florez MD Orthopedic Surgery 12/09/14 [place] [id number] [address] Oncology 09/15/17 documented as of this encounter
--- OUTSIDE RECORDS SUMMARY | 2024-05-26 12:42 | XMS_ITS | Encounter Summary ---
Author Organization [facility] Address [address] [place] [address] Care Team Providers Care Licensed Nuclear Control Room Operator Name Role Phone Etienne Florez MD Unavailable [phone] Enrique Gonzalez MD Unavailable [phone] Reason for Visit * Reason Onset Date Comments Injury Rectal 11/14/2017 Encounter Details Date Type Department Care Team (Late st Contact Info) Description 11/14/2017 Telephone [facility] - Family Medicine [address] [place] [address] [address] [place] [address] Jarrell Garrison MD [address] [facility] [address] [place] [address] Injury Rectal Social History Tobacco Use Types Packs/Day Years [...] * Telephone Encounter - Shayy Abraham - 11/14/2017 11:46 AM CDT Spoke to patient she refused to go to the ER/UC because she didn't feel they would be able to do anything for her. She stated she will call back and make an appointment to see the In the next week or two. * Telephone Encounter - Jarrell Garrison MD - 11/14/2017 11:06 AM CDT I recommend evaluation in UC/ER today Thank you * Telephone Encounter - Breezy Townsend - 11/14/2017 11:00 AM CDT Pt is calling to report her stool has black spots in them. Pt wants to know if she needs to come inor does she need to be concerned. documented in this encounter Plan of Treatment Not on file documented as of this encounter Goals Goal Patient Goal Type Associated Problems Recent Progress Patient-Stated? Author Blood Pressure < 140/90 Blood Pressure 127/52(2022 8:09 AM YOUTH AGENT) No Alisa Jaramillo HEMOGLOBIN A1C < 7.0 Result Component 5.4( 12:00 AM CDT) No Alisa Jaramillo documented as of this encounter Visit Diagnoses Not on filedocumented in this encounter Care Teams Licensed Nuclear Control Room Operator Relationship Specialty Start Date End Date Etienne Florez MD Orthopedic Surgery 12/09/14 [place] [address] [address] Oncology 09/15/17 documented as of this encounter
--- OUTSIDE RECORDS SUMMARY | 2024-05-26 12:42 | XMS_ITS | Encounter Summary ---
Author Organization [facility] Address [address] [place] [address] Care Team Providers Care Dumper [employer] Name Role Phone Etienne Florez MD Unavailable [phone] Reason for Visit * Reason Onset Date Comments MEDICATION REFILL 09/09/2017 Encounter Details Date Type Department Care Team (Late st Contact Info) Description 09/09/2017 Refill [facility] - Family Medicine [address] [place] [address] [address] [place] [address] Jarrell Garrison MD [facility] [address] [address] MEDICATION REFILL Social History Tobacco Use [...] encounter Miscellaneous Notes * Telephone Encounter - Katelynn Heredia - 09/09/2017 12:31 PM CDT Perla Leon is in need of Her Requested Prescriptions Pending Prescriptions Disp Refills ??? lubiprostone (AMITIZA) 24 MCG capsule 30 capsule 0 Sig: Take 1 capsule by mouth daily with breakfast Person calling for the refill: Patient Last office visit 08/19/17 Next Appointment scheduled: 10/22/17 Last Refill for this medication 08/22/17 Does patient have any new allergies since last office visit? No Was the pharmacy verified? Yes If this is a controlled substance was the Last 4 of SSN verified? NO (If unable to verify last 4 of SSN transfer to the clinic for further review) documented in this encounter Plan of Treatment Not on file documented as of this encounter Goals Goal Patient Goal Type Associated Problems Recent Progress Patient-Stated? Author Blood Pressure < 140/90 Blood Pressure 127/52(2022 8:09 AM CHILD DEVELOPMENT ASSOCIATE TEACHER) No Alisa Jaramillo HEMOGLOBIN A1C < 7.0 Result Component 5.4( 12:00 AM CDT) No Alisa Jaramillo documented as of this encounter Visit Diagnoses Not on filedocumented in this encounter Care Teams Dumper [employer] Relationship Specialty Start Date End Date Etienne Florez MD Orthopedic Surgery 12/09/14 documented as of this encounter
--- OUTSIDE RECORDS SUMMARY | 2024-05-26 12:42 | XMS_ITS | Encounter Summary ---
Author Organization [facility] Address [address] [place] [address] Care Team Providers Care Recorder Gravity Prospecting Name Role Phone Etienne Florez MD Unavailable [phone] Enrique Gonzalez MD Unavailable [phone] Reason for Visit * Reason Onset Date Comments MEDICATION REFILL 09/17/2017 Encounter Details Date Type Department Care Team (Late st Contact Info) Description 09/17/2017 Refill [facility] - Family Medicine [address] [place] [address] [address] [place] [address] Jarrell Garrison MD [address] [facility] [address] [place] [address] MEDICATION REFILL Social History Tobacco [...] * Telephone Encounter - Vinny Ahmadi - 09/17/2017 9:15 AM CDT Perla Leon is in need of Her Requested Prescriptions Pending Prescriptions Disp Refills ??? clopidogrel (PLAVIX) 75 MG tablet 90 tablet 2 Sig: Take 1 tablet by mouth at bedtime Person calling for the refill: Patient Last office visit 08/19/17 Next Appointment scheduled: 10/22/2017 Last Refill for this medication 12/04/16 Does patient have any new allergies since [...] < 140/90 Blood Pressure 127/52(2022 8:09 AM IRON SETTER) No Alisa Jaramillo HEMOGLOBIN A1C < 7.0 Result Component 5.4( 12:00 AM CDT) No Alisa Jaramillo documented as of this encounter Visit Diagnoses Not on filedocumented in this encounter Care Teams Recorder Gravity Prospecting Relationship Specialty Start Date End Date Etienne Florez MD Orthopedic Surgery 12/09/14 [place] [address] [address] Oncology 09/15/17 documented as of this encounter
--- OUTSIDE RECORDS SUMMARY | 2024-05-26 12:42 | XMS_ITS | Encounter Summary ---
Author Organization [facility] Health Address [address] [place] [address] Care Team Providers Care Dynamometer Mechanic Name Role Phone Etienne Florez MD Unavailable Enrique Gonzalez MD Unavailable [phone] Reason for Visit * Reason Onset Date Comments Question 10/30/2017 Encounter Details Date Type Department Care Team (Late st Contact Info) Description 10/30/2017 Telephone [facility] [address] [place] [address] [place] [address] [address] Question Social History Tobacco Use [...] encounter Miscellaneous Notes * Telephone Encounter - Mi Montenegro - 10/30/2017 2:21 PM CDT Steve from [facility] called asking the dose on pt's vitamin c and vitamin d that Dr. Gonzalez wanted her to take. Please call him back at [phone]. Thanks. documented in this encounter Plan of Treatment Not on file documented as of this encounter Goals Goal Patient Goal Type Associated Problems Recent Progress Patient-Stated? Author Blood Pressure < 140/90 Blood Pressure 127/52(2022 8:09 AM RELIGIOUS EDUCATION DIRECTOR) No Alisa Jaramillo HEMOGLOBIN A1C < 7.0 Result Component 5.4( 12:00 AM CDT) No Alisa Jaramillo documented as of this encounter Visit Diagnoses Not on filedocumented in this encounter Care Teams Dynamometer Mechanic Relationship Specialty Start Date End Date Etienne Florez MD Orthopedic Surgery 12/09/14 [place] [address] [phone] Oncology 09/15/17 documented as of this encounter
--- OUTSIDE RECORDS SUMMARY | 2024-05-26 12:42 | XMS_ITS | Encounter Summary ---
Author Organization [facility] Address [address] [facility] [place] [address] Care Team Providers Care Swatch Folder Name Role Phone Etienne Florez MD Unavailable [phone] Reason for Visit * Auth/Cert Specialty Diagnoses / Procedures Referred By Contac t Referred To Contact Procedures BIOPSY/EXCISION AXILLARY LYMPH NODE Referral ID Status Reason Start Date Expiration Date Visits Re quested Visits Authorized [id number] 1 1 Encounter Details Date Type Department Care Team (Latest Contact Info) Description 09/08/2017 7:06 AM CDT - 09/08/2017 11:59 PM CDT Hospital Encounter [facility] Nuclear Medicine [address] [place] [address] [place] [address] [address] Discharge Disposition: Home or Self [...] 140/90 Blood Pressure 127/52(2022 8:09 AM INSTRUCTIONAL SUPPORT SPECIALIST) No Alisa Jaramillo HEMOGLOBIN A1C < 7.0 Result Component 5.4( 12:00 AM CDT) No Alisa Jaramillo documented as of this encounter Procedures Procedure Name Priority Date/Time Associated Diagnosis Comments NM SENTINEL NODE INJECTION Routine 09/08/2017 8:58 AM CDT Infiltrating ductal carcinoma of left breast (HCC) documented in this encounter Results * NM SENTINEL NODE INJECTION (09/08/2017 8:58 [...] by Eneida Smalls on 09/08/2017 4:20 PM Shira PHAM ORDERABLES documented in this encounter Visit Diagnoses Diagnosis Infiltrating ductal carcinoma of left breast (HCC) documented in this encounter Care Teams Swatch Folder Relationship Specialty Start Date End Date Etienne Florez MD Orthopedic Surgery 12/09/14 documented as of this encounter
--- OUTSIDE RECORDS SUMMARY | 2024-05-26 12:42 | XMS_ITS | Encounter Summary ---
Author Organization [facility] Address [address] [place] [address] Care Team Providers Care Instructor Programmable Controllers Name Role Phone Etienne Florez MD Unavailable [phone] Reason for Visit * Auth/Cert Specialty Diagnoses / Procedures Referred By Contac t Referred To Contact Procedures BIOPSY/EXCISION AXILLARY LYMPH NODE Referral ID Status Reason Start Date Expiration Date Visits Re quested Visits Authorized [id number] 1 1 Encounter Details Date Type Department Care Team (Latest Contact Info) Description 09/08/2017 6:57 AM CDT - 09/08/2017 1:02 PM CDT Hospital Encounter [facility] [address] [place] [address] [place] [address] [address] Surgery General Discharge Disposition: Home or Self [...] 3-D tomosynthesis images were performed. ?? TECHNOLOGIST: RT Raymond(R)(M) ?? TISSUE DENSITY: Scattered fibroglandular elements. ?? [...] A2): ER: Positive (96.6 %, intensity: strong) AK: Positive (22.5 %, intensity: moderate) Her-2-osmin: Not [...] Diagnosis: Left Breast Cancer Procedure: 1. Left [place] Lymph Node Biopsy 2. Injection of methylene blue dye to the left breast Surgeon: Shira Love DO Railroad Wheels And Axle Inspector: DANIA Marcelo Type of anesthesia: Local, MAC Specimens: Left [place] Lymph Node Complications: none EBL: 25 cc [...] nodes were removed in normal surgical fashion. Noblue lymph nodes were identified and only background counts were obtained with the navigator probe.No other palpable adenopathy was appreciated. Attention was [...] < 140/90 Blood Pressure 127/52(2022 8:09 AM HOTHOUSE WORKER) No Alisa Jaramillo HEMOGLOBIN A1C < [...] Case Report Surgical Pathology Report ? Case: [id number] ? Authorizing Provider: ??Shira Love DO ? Collected: ? 09/08/2017 11:05 AM ? Ordering Location: ? [facility] ? Received: ?09/08/2017 11:58 AM ? Pathologist: ? Femi Carbajal MD ? Specimen: ?[place] Lymph Node, sentinel lymph nodes left breast ? 8 3:34 PM CDT [facility] Final Diagnosis 1. Left axillary sentinel lymph node, excision: -- Lymph node # 1: No metastatic tumor detected in one lymph node (0/1) -- Lymph node # 2: No metastatic tumor detected in one lymph node (0/1) /yanira 8 3:34 PM CDT [facility] Gross [...] nodes are submitted entirely in cassette A1. / 8 3:34 PM CDT [facility] Microscopic Description The left sentinel lymph node sections show no metastatic tumor by routine H&E serial sections. Immunohistochemistry for Pankeratin shows no tumor either. /yanira 8 3:34 PM CDT [facility] Disclaimer All histochemical and/or immunohistochemical results [...] high complexity testing. 8 3:34 PM CDT [facility] Embedded Images 8 3:34 PM CDT [facility] Pathology/Cytolo gy SPECIMEN FROM SENTINEL LYMPH NODE / Unknown 09/08/2017 11:05 AM CDT 09/08/2017 11:58 AM CDT Shira Love DO LAB - PATHOLOGY/CYTO LOGY ORDERABLES Performing Organization Address [facility] Co de Phone Number [facility] [address] [place] [address] * (ABNORMAL) GLUCOSE - POINT OF CARE (09/08/2017 8:08 AM CDT) Glucose WB/POC 149(H) 70 - 106 mg/dL 09/08/2017 8:31 AM CDT [facility] Specimen Type VENOUS BLOOD 09/08/2017 8:31 AM CDT [facility] Blood BLOOD SPECIMEN / Unknown 09/08/2017 8:08 AM CDT 09/08/2017 8:31 AM CDT Narrative [facility] - 09/08/2017 8:31 AM CDT REPEAT TEST Shira Love DO LAB - POINT OF CARE ORDERABLES Performing Organization Address [facility] de Phone Number [facility] [address] [place] [address] * (ABNORMAL) BASIC METABOLIC PANEL (CALCIUM TOTAL) (09/08/2017 8:07 AM CDT) Glucose 136(H) 74 - 106 mg/dL 09/08/2017 8:37 AM CDT [facility] Sodium 142 136 - 145 mmol/L 09/08/2017 8:37 AM CDT [facility] Potassium 3.4(L) 3.5 - 5.1 mmol/L 09/08/2017 8:37 AM CDT [facility] Chloride 109(H) 98 - 107 mmol/L 09/08/2017 8:37 AM CDT [facility] CO2 27 22 - 31 mmol/L 09/08/2017 8:37 AM CDT [facility] Calcium 9.7 8.5 - 10.1 mg/dL 09/08/2017 8:37 AM CDT [facility] Anion Gap 6(L) 8 - 16 mmol/L 09/08/2017 8:37 AM CDT [facility] BUN 19 7 - 21 mg/dL 09/08/2017 8:37 AM CDT [facility] Creatinine 0.84 0.50 - 1.30 mg/dL 09/08/2017 8:37 AM CDT [facility] eGFR by MDRD >60 mL/min/1.7 3m2 09/08/2017 8:37 AM CDT [facility] eGFR by MDRD >60 mL/min/1.7 3m2 09/08/2017 8:37 AM CDT [facility] Blood BLOOD SPECIMEN / Unknown Venipuncture / Unknown 09/08/2017 8:07 AM CDT 09/08/2017 8:11 AM CDT Nadja Valencia DO LAB - CHEMISTRY ROWAN QUIROZ Performing Organization Address City/State/[facility] Co de Phone Number [facility] [address] [place] [phone] documented in this encounter Visit Diagnoses Diagnosis Preop examination- Primary Preoperative examination, unspecified Diagnosis unknown Other unknown and unspecified cause [...] Pre-op 1018 ($ Given - Prov ider: Berna Ignacio APRN-DROP SHIPMENT CLERK) lidocaine buffered 1 % injection 0.5 mL [...] Given - Prov ider: Stacey Berg, DES) Continuous Medication Order 09/06/2017 09/07/2017 09/08/2017 lactated ringers infusion at 20 mL/hr, Intravenous, PRE-OP CONTINUOUS, Starting on Fri09/08/17 at 0730, Until Fri09/08/17 at 1527, Pre-op 0823 ($ New Bag/Syri nge - Provider: Stacey Berg RN)1121 (Anesthesia Volume Adjustment - Provider: Berna Ignacio APRN-DROP SHIPMENT CLERK) PRN Medication Order 09/06/2017 09/07/2017 09/08/2017 0.9% NaCl injection PRN, Starting on Fri09/08/17 at 1043, Until Fri09/08/17 at 1527, Intra-op 1043 ($ Given - Prov ider: Shira Love DO - Comment: mixed with Methylene blue) [...] MARIALUISA) documented in this encounter Care Teams Instructor Programmable Controllers Relationship Specialty Start Date End Date Etienne Florez MD Orthopedic Surgery 12/09/14 documented as of this encounter
--- OUTSIDE RECORDS SUMMARY | 2024-05-26 12:42 | XMS_ITS | Encounter Summary ---
Author Organization [facility] Address [address] [place] [address] Care Team Providers Care Svp Marketing Name Role Phone Etienne Florez MD Unavailable Enrique Gonzalez MD Unavailable [phone] Reason for Visit * Reason Comments Hospital Follow-up Hypokalemia Encounter Details Date Type Department Care Team (Late st Contact Info) Description 10/22/2017 10:10 AM CDT Office Visit [facility] - Family Medicine [id number] [place] [address] [address] [place] [address] Jarrell Garrison MD [address] [facility] [address] [place] [address] Type 2 diabetes mellitus without complication, with long-term current use of insulin (HCC) (Primary Dx); Essential hypertension; Mixed hyperlipidemia; History of TIA (transient ischemic attack); Uncomplicated asthma, unspecified asthma severity, unspecified whether persistent (HCC); HSP (hereditary spastic paraplegia) (HCC); Sleep apnea, unspecified type; Malignant neoplasm of upper-outer quadrant of left [...] Sign Reading Time Taken Comments Blood Pressure 124/52 10/22/2017 10:20 AM CDT Pulse 75 10/22/2017 10:20 AM CDT Temperature 36.6 ??C (97.8 ??F) 10/22/2017 10:20 AM C DT Respiratory Rate 18 10/22/2017 10:20 AM CDT Oxygen Saturation 94% 10/22/2017 10:20 AM CDT Inhaled Oxygen Concentration - - Weight 95.7 kg (211 lb) 10/22/2017 10:20 AM CDT Height 165.1 cm (5' 5 ) 10/22/2017 10:20 AM CDT Body Mass Index 35.11 10/22/2017 10:20 AM CDT documented in this encounter Functional [...] as of this encounter Progress Notes * Jarrell Garrison MD - 02/26/2018 6:38 PM CDT Perla Leon 77 y.o. 10/22/2017. CHIEF COMPLAINT/HPI: Follow up visit today Diabetes controlled Htn Bp Ok. Hld statin Hsp seeing neurology Major cpap ? Non smoker Previous Tia . Vision okay. Seeing oncology for breast cancer. ?? PERSONAL HISTORY: Alcohol: History reviewed Caffeine: minimal intake Tobacco: unknown tobacco use Salt: minimal intake Exercise: Recommended REVIEW OF SYSTEMS Reviewed PHYSICAL EXAMINATION General: alert and attentive Vitals noted and documented Body mass index is 35.11 kg/(m^2). General appearance - alert, well appearing, and in no distress Skin - normal coloration and turgor, no rashes, no suspicious skin lesions noted Eyes - pupils equal and reactive, extraocular eye movements intact ENT - ENT exam normal, no neck nodes or sinus tenderness Lymphatics - no palpable lymphadenopathy, no hepatosplenomegaly Lungs - clear to auscultation, no wheezes, rales or rhonchi, symmetric air entry Heart - normal rate, regular rhythm, normal S1, S2, no murmurs, rubs, clicks or gallops Abdomen - soft, nontender, nondistended, no masses or organomegaly Genitourinary - deferred Extremeties - peripheral pulses normal, no pedal edema, no clubbing or cyanosis Periph. Vascular - both carotids normal upstroke without bruits, pedal pulses normal both DP's and PT's Carotid Femoral PT DP Pulses Bruits Neurological - alert, oriented, normal speech, no focal findings or movement disorder noted Back exam - full range of motion, no tenderness, palpable spasm or pain on motion Musculoskeletal - Impaired ambulation Recent Labs Component Name 02/13/18 1427 01/14/18 1119 10/22/17 1157 09/08/17 0807 08/26/17 0413 SODIUM - 139 - 142 140 POTASSIUM 4.0 3.2* 4.4 3.4* 3.1* CHLORIDE - 101 - 109* 104 CO2 - 30 - 27 31 BUN - 14 - 19 21 CREATININE - 0.95 - 0.84 0.89 GLUCOSE - 178* - 136* 167* CALCIUM - 9.9 - 9.7 9.3 ASSESSMENT: Encounter Diagnoses Name Primary? Type 2 diabetes mellitus without complication, with long-term current use of insulin Yes ??? Essential hypertension ??? Mixed hyperlipidemia ??? History of TIA (transient ischemic attack) ??? Uncomplicated asthma, unspecified asthma severity, unspecified whether persistent ??? HSP (hereditary spastic paraplegia) ??? Sleep apnea, unspecified type ??? Malignant neoplasm of upper-outer quadrant of left breast in female, estrogen receptor positive PLAN: Orders Placed This Encounter ??? POTASSIUM BLOOD ??? DISCONTD: lubiprostone (AMITIZA) 24 MCG capsule Sig: Take 1 capsule by mouth daily with breakfast Dispense: 90 capsule Refill: 0 Oncology follow up Labs this visit Plan as above Immunization reviewed Medications Reviewed Jarrell Garrison MD * Abraham Shayy - 10/22/2017 10:28 AM CDT BP 124/52 (BP SITE: RIGHT ARM, BP POSITION: SITTING, BP CUFF SIZE: 12) Pulse 75 Temp 97.8 ??F (36.6??C) (Oral) Resp 18 Ht 1.651 m (5' 5 ) Wt 95.7 kg (211 lb) SpO2 94% BMI 35.11 kg/m2 Patient Active Problem List Diagnosis Date Noted ??? Mixed hyperlipidemia 10/22/2017 Priority: Not Prioritized ??? 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 Long-term insulin use 06/12/2016 Priority: Not Prioritized ??? 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 Asthma 01/07/2011 ??? HTN (hypertension) 01/07/2011 ??? Sleep apnea 01/07/2011 ??? Type 2 diabetes mellitus without complication 01/07/2011 documented in this encounter Plan of Treatment Not on file documented as of this encounter Goals Goal Patient Goal Type Associated Problems Recent Progress Patient-Stated? Author Blood Pressure < 140/90 Blood Pressure 127/52(2022 8:09 AM FINANCIAL ADVOCATE) No Alisa Jaramillo HEMOGLOBIN A1C < 7.0 Result Component 5.4( 12:00 AM CDT) No Alisa Jaramillo documented as of this encounter Procedures Procedure Name Priority Date/Time Associated Diagnosis Comments POTASSIUM BLOOD Routine 10/22/2017 11:57 AM CDT Essential hypertension documented in this encounter Results * POTASSIUM BLOOD (10/22/2017 11:57 AM CDT) Potassium 4.4 3.5 - 5.1 mmol/L [facility] INSURANCE BILL Blood BLOOD SPECIMEN / Unknown 10/22/2017 11:57 AM CDT 10/22/2017 Narrative Resulting Agency Comment [facility] [address] [place] [id number] Jarrell Garrison MD LAB - CHEMISTRY ROWAN QUIROZ [facility] INSURANCE BILL [address] [place] [address] documented in this encounter Visit Diagnoses Diagnosis Type 2 diabetes mellitus without complication, with long-term current use of insulin (HCC)- Primary Essential hypertension Mixed hyperlipidemia History of TIA (transient ischemic attack) Transient ischemic attack (TIA), and cerebral infarction without residual deficits Uncomplicated asthma, unspecified asthma severity, unspecified whether persistent (HCC) HSP (hereditary spastic paraplegia) (HCC) Hereditary spastic paraplegia Sleep apnea, unspecified type Malignant neoplasm of upper-outer quadrant of left breast in female, estrogen receptor positive (HCC) documented in this encounter Care Teams Svp Marketing Relationship Specialty Start Date End Date Etienne Florez MD Orthopedic Surgery 12/09/14 [place] [id number] [address] Oncology 09/15/17 documented as of this encounter
--- OUTSIDE RECORDS SUMMARY | 2024-05-26 12:43 | XMS_ITS | Encounter Summary ---
Author Organization [facility] Address [address] [place] [address] Care Team Providers Care Senior Process Engineer Name Role Phone Etienne Florez MD Unavailable [phone] Reason for Visit * Reason Onset Date Comments Letter 08/21/2017 Encounter Details Date Type Department Care Team (Late st Contact Info) Description 08/21/2017 Telephone [facility] - Family Medicine [address] [place] [address] [address] [place] [address] Jarrell Garrison MD [address] [facility] [address] [address] Letter Social History Tobacco Use Types Packs/Day Years [...] Telephone Encounter - Jarrell Garrison MD - 08/21/2017 4:09 PM CDT Phyllis Please follow up on this We are waiting a preoperative clearance from her net manager Thank you * Telephone Encounter - Breezy Townsend - 08/21/2017 3:52 PM CDT Pt is wanting a 7 day supply of her potassium sent to the local pharmacy ([facility]). * Telephone Encounter - Brezey Townsend - 08/21/2017 3:39 PM CDT Pt is wanting to know if letter was received from her net manager. documented in this encounter Plan of Treatment Not on file documented as of this encounter Goals Goal Patient Goal Type Associated Problems Recent Progress Patient-Stated? Author Blood Pressure < 140/90 Blood Pressure 127/52(2022 8:09 AM DISBURSING OFFICER) No Alisa Jaramillo HEMOGLOBIN A1C < 7.0 Result Component 5.4( 12:00 AM CDT) No Alisa Jaramillo documented as of this encounter Visit Diagnoses Not on filedocumented in this encounter Care Teams Senior Process Engineer Relationship Specialty Start Date End Date Etienne Florez MD Orthopedic Surgery 12/09/14 documented as of this encounter
--- OUTSIDE RECORDS SUMMARY | 2024-05-26 12:43 | XMS_ITS | Encounter Summary ---
Author Organization [facility] Address [address] [place] [address] Care Team Providers Care Peripheral Edp Equipment Operator Name Role Phone Etienne Florez MD Unavailable [phone] Reason for Referral * Radiology Services (Routine) - Closed Specialty Diagnoses / Procedures Referred By Alejandrina vale Referred To Contact Diagnoses Abnormal finding on breast imaging Procedures [place] [address] [place] [address] Referral ID Status Reason Start Date Expiration Date Visits Re quested Visits Authorized [id number] Closed 08/05/2017 02/01/2018 1 1 Reason for Visit * Reason Comments Results abnormal mammogram Encounter Details Date Type Department Care Team (Late st Contact Info) Description 08/05/2017 12:50 PM CDT Office Visit [facility] - Surgery [address] [place] [address], [address] [place] [address] [place] [address] [place] [id number] Abnormal finding on breast imaging (Primary Dx) Social History Tobacco Use Types [...] - Inhaled Oxygen Concentration - - Weight 94.8 kg (209 lb) 08/05/2017 12:55 PM CDT Height 165.1 cm (5' 5 ) 08/05/2017 12:55 PM CDT Body Mass Index 34.78 08/05/2017 12:55 PM CDT documented in this encounter Functional [...] this encounter Patient Instructions * Patient Instructions* Alice Manzo - 08/05/2017 1:11 PM CDT Patient Name: Perla Leon Your procedure has been scheduled for: Date: Friday08/25/17 Approximate Procedure Arrival Time: 6:30am You will be notified by the hospital regarding your exact arrival time. Surgeon: Place: [] Noah Fernández M.D. [x] [address] Outpatient Registration [] Adan Pinzon M.D. [] [facility] [] Claude Engel M.D. [] [facility] [facility]. [] Jerica Segura M.D. [] [facility] [] Santana Funez M.D. [facility]. [] Constanza Saucead D.O. [] Adan Lao M.D. [] Duane Gómez M.D. [x] Shira Love D.O. INSTRUCTIONS: [x] Nothing to eat or drink after midnight. [x] Do take heart, blood pressure, or breathing medications with a sip of water the morning of surgery. [x] DO NOT take diabetic medication the morning of surgery as you will not be able to eat. [] DO NOT take any products containing ASPIRIN for one (1) week prior to surgery and for two (2) weeks after surgery. [] DO NOT take IBUPROFEN (Motrin, Advil, Nuprin) for one (1) week prior to surgery. [] DO NOT take any NAPROXEN (Aleve) or any anti-inflammatory medications for arthritis. [x] DO NOT take PLAVIX for 5 days. Your last dose will be Friday08/20/17. [] Clear Liquid Diet Only on day before procedure/date [] You are having local anesthesia, you DO NOT need to fast, you may drive yourself. [x] You will be having OUTPATIENT SURGERY. You will need someone to drive you home. [] You will spend one (1) night in the hospital. [] You will need to be admitted to the hospital after surgery. Name of Procedure: LEFT BREAST EXCISIONAL BIOPSY Comments: Your follow-up appointment is: Date: Friday09/02/17 Time: 1:30pm documented in this encounter Progress Notes * Shira Love DO - 08/05/2017 12:37 PM CDT Chief Complaint Abnormal breast imaging. History of Present Illness: Perla Leon is [...] She reports maternal aunt with colon cancer. Age of menarche was 11. Last menstrual period was in 1985. Patient denies hormone therapy. Patient denies oral contraceptive use. Patient is . Age of first live was 17. Patient did not breast feed. Past Medical History: Diagnosis Date ??? Asthma 2012 ??? Atrial fibrillation 2015 ??? Broken ankle 12/19/2003 ??? Duodenal ulcer, unspecified as acute or chronic, without hemorrhage, perforation, or obstruction 1977 ??? Familial spastic paraplegia 1979 ??? Fracture of sacrum 05/1999 [place] ??? Glaucoma 06/2003 ??? Heart murmur 01/27/2004, 03/13/2004 ??? Lymphatic edema ??? Partial seizures 2000 ??? Pneumonia 1989, 08/2005, 07/2010 ??? Shingles 2002, 2006 ??? TIA (transient ischemic attack) 2000, 08/11/2008 Past Surgical History: Procedure Laterality Date ??? CARDIAC CATH 08/04/2002, 09/06/2010 ??? Cholecystectomy 10/28/1997 ??? COLONOSCOPY 2011 ??? Hernia Repair 01/17/2010 ??? Hysterectomy 1985 ??? Knee Replacement 05/06/2001, 09/27/2003 RT KNEE ??? PROC BIOPSY 07/07/2008 LT LEG, RT CHEEK ??? SURGICAL HISTORY OF 1974 REMOVAL OF ULCER FROM VOCAL CORD ??? SURGICAL HISTORY OF 1984 BROKEN NOSE SURGERY ??? SURGICAL HISTORY OF 09/10/2010 PELVIC PROLAPSED RECONSTRUCTION ??? SURGICAL HISTORY OF 07/20/2008 FREEZE PRECANCEROUS SPOT RT CHEEK ??? SURGICAL HISTORY OF 07/05/2008 FREEZE PRECANCERSOUS SPOTS ON RT AND LT ARM Outpatient Prescriptions Marked as Taking for the [...] Take 2.5 mg by mouth once daily ??? amitriptyline (ELAVIL) 25 MG tablet Take 2 tablets by mouth at bedtime 180 tablet 3 ??? Polyethyl Glycol-Propyl Glycol (SYSTANE ULTRA OP) by Ophthalmic route as needed ??? menthol-zinc oxide (CALMOSEPTINE) 0.44-20.6 % ointment [...] daily ??? insulin detemir (LEVEMIR) vial Inject 10 Units subcutaneously at bedtime ??? sitaGLIPtin (JANUVIA) 50 MG tablet Take 100 mg by mouth once daily ??? latanoprost (XALATAN) 0.005 % ophthalmic solution 1 Drop at bedtime ??? glimepiride (AMARYL) 1 MG [...] Advair Diskus YEAS INFECTION ??? Aricept [Donepezil] ??? Diltiazem Swelling ??? Metformin Other reaction(s): Other (See Comments) unknown ??? Fluticasone Other reaction(s): Other (See comments) Reaction: colon problems, ??? Piper Longum ??? Salmeterol Other reaction(s): Other (See comments) Reaction: colon problems, Family History Problem Relation Age of Onset ??? Cancer - Breast Mother ??? Coronary Artery Disease Father CHF ??? Coronary Artery Disease Brother CHF Social History Substance Use Topics ??? Smoking status: Never Smoker ??? Smokeless tobacco: Never Used ??? Alcohol use No Review of Systems: General: No fatigue or weight loss Eyes: [...] Breasts: Patient denies noticing mass or pain. Physical Examination: Constitutional: Vital signs are stable [...] mass lesion, small rash noted, inversion of nipple. Left breast without dominant mass lesion. Data Reviewed: Mammograms from [facility] reviewed today. FINDINGS: A small spiculated distortion persists in [...] category 4C) Suspicious abnormality.?? RECOMMENDATIONS: Surgical consultation. ?? Ultrasound from [facility] reviewed today. Directed grayscale ultrasound performed and reveals a hypoechoic density at the site of the spiculated distortion mammographically at 1:00 to 2:00, 5 cm from the nipple, measuring 8 x 6 x 8 mm. Survey images of the axilla do not reveal abnormal adenopathy. Findings are suspicious and tissue diagnosis would be warranted. ?? ASSESSMENT: BI-RADS Category 4, suspicious. ?? RECOMMENDATION: Surgical consultation. Impression/Plan: Abnormal LEFT breast imaging Physical exam and imaging results were discussed with the patient in detail Patient has familial spastic paraplegia and would not tolerate ultrasound guided in the office. I have recommended a left breast excisional biopsy for tissue diagnosis. Patient will require wire localization by radiology preoperatively. I have discussed the risks, benefits and alternatives to surgery with the patient who understands and wishes to proceed. Patient is aware that I will call her with the results. Patient will need preoperative clearance by Dr. Garrison. Patient will need to stop Plavix 5-7 days prior to surgery. Patient desires surgery after August 18, 2017. This document was scribed by Ange Patterson for Dr. Shira Love. I have reviewed the above note and verify that I was present during this visit and the information provided is accurate. documented in this encounter Plan of Treatment Not on file documented as of this encounter Goals Goal Patient Goal Type Associated Problems Recent Progress Patient-Stated? Author Blood Pressure < 140/90 Blood Pressure 127/52(2022 8:09 AM APPRAISER ART) No Alisa Jaramillo HEMOGLOBIN A1C < 7.0 Result Component 5.4( 12:00 AM CDT) No Alisa Jaramillo documented as of this encounter Results * US BREAST LEFT NEEDLE LOC (08/25/2017 [...] the appropriate position through the mass. Shira RAYMOND ORDERABLES documented in this encounter Visit Diagnoses Diagnosis Abnormal finding on breast imaging- Primary Other (abnormal) findings on radiological examination of breast Abnormal finding on breast imaging Other (abnormal) findings on radiological examination of breast documented in this encounter Care Teams Peripheral Edp Equipment Operator Relationship Specialty Start Date End Date Etienne Florez MD Orthopedic Surgery 12/09/14 documented as of this encounter
--- OUTSIDE RECORDS SUMMARY | 2024-05-26 12:43 | XMS_ITS | Encounter Summary ---
Author Organization [facility] Address [address] [facility] [place] [address] Care Team Providers Care Physicist Solid State Name Role Phone Etienne Florez MD Unavailable [phone] Reason for Visit * Reason Onset Date Comments Question 08/27/2017 Encounter Details Date Type Department Care Team (Late st Contact Info) Description 08/27/2017 Telephone [facility] [place] [facility] [address] [facility] [address] [place] [address] [place] [address] [facility] [address] [place] [address] Question Social History Tobacco Use [...] * Telephone Encounter - Karina Scherer - 08/29/2017 11:25 AM CDT Patient came in the office yesterday and it is being worked on. * Telephone Encounter - Nelson Ross MD - 08/27/2017 1:19 PM CDT ok * Telephone Encounter - Karina Scherer - 08/27/2017 9:49 AM CDT Daughter states they need a prescription for a lift chair for her mother. They want if faxed to [employer]. The phone number is [phone] and the fax number [phone]. Please fax the prescription. Patient has an appointment with you tomorrow. documented in this encounter Plan of Treatment Not on file documented as of this encounter Goals Goal Patient Goal Type Associated Problems Recent Progress Patient-Stated? Author Blood Pressure < 140/90 Blood Pressure 127/52(2022 8:09 AM TRANSMISSION REBUILDER) No Alisa Jaramillo HEMOGLOBIN A1C < 7.0 Result Component 5.4( 12:00 AM CDT) No Alisa Jaramillo documented as of this encounter Visit Diagnoses Not on filedocumented in this encounter Care Teams Physicist Solid State Relationship Specialty Start Date End Date Etienne Florez MD Orthopedic Surgery 12/09/14 documented as of this encounter
--- OUTSIDE RECORDS SUMMARY | 2024-05-26 12:43 | XMS_ITS | Encounter Summary ---
Author Organization [facility] Address [address] [place] [address] Care Team Providers Care Imcu Nurse Name Role Phone Etienne Florez MD Unavailable [phone] Reason for Referral * Radiology Services (Routine) - Closed Specialty Diagnoses / Procedures Referred By [facility] Referred To Contact Diagnoses Infiltrating ductal carcinoma of left breast (HCC) Procedures NM [place] [address] [address] [address] Referral ID Status Reason Start Date Expiration Date Visits Re quested Visits Authorized [id number] Closed 09/02/2017 03/01/2018 1 1 * Evaluate - Closed Specialty Diagnoses / Procedures Referred By [facility] Referred To Contact Oncology-Medical Diagnoses Infiltrating ductal carcinoma of left [place] ([place] [address] [place] [address] [facility] [address] [facility] [address] [place] [address] Referral ID Status Reason Start Date Expiration Date V isits Requested Visits Authorized [id number] Closed Specialty Services Required 09/02/2017 03/01/2018 1 1 Reason for Visit * Reason Comments Post-Op left breast excision al bx Encounter Details Date Type Department Care Team (Late st Contact Info) Description 09/02/2017 1:30 PM CDT Office Visit [facility] - Surgery [address], [address] [place] [address] [place] [address] [place] [address] Infiltrating ductal carcinoma of left breast (HCC) (Primary Dx) Social History Tobacco [...] - Inhaled Oxygen Concentration - - Weight 94.3 kg (208 lb) 09/02/2017 1:41 PM CDT Height 165.1 cm (5' 5 ) 09/02/2017 1:41 PM CDT Body Mass Index 34.61 09/02/2017 1:41 PM CDT documented in this encounter Functional [...] Instructions * Patient Instructions* Harmeet Flores - 09/02/2017 1:43 PM CDT Patient's medications and allergies were reviewed with the patient today. Patient was instructed tocontact primary care physician or ordering provider with any questions regarding medications. Patient Name: Perla Leon Your procedure has been scheduled for: Date: 09/04/2017 Approximate Arrival Time: 10:30AM Surgeon: Place: [] Noah Fernández M.D. [x] [facility] 2nd Floor [facility]. [] Adan Pinzon M.D. [] [facility] [] Claude Engel M.D. [] [place] 1st Floor [facility]. [] Jerica Segura M.D. [] [facility] [] Santana Funez M.D. [facility] Floor/[facility]. [] Constanza Sauceda D.O. [] Adan Lao M.D. [] Duane [...] (Aleve) or any anti-inflammatory medications for arthritis. [] DO NOT take PLAVIX/COUMADIN/WARFARIN/PRADAXA/XARELTO/EFFIENT for days. Your last dose will be [] Clear Liquid Diet Only on day [...] after surgery. Name of Procedure: LEFT BREAST SENTINEL LYMPH NODE BIOPSY Comments: Your follow-up appointment is: Date: Friday09/10/2017 Time: 11:30AM documented in this encounter Progress Notes * Shira Love, - 09/02/2017 1:31 PM CDT Perla Leon is a 76 y.o. female who is here for a postoperative visit following Left Breast Excisional Biopsy with Needle Localization Referring physician is Jarrell Garrison MD. Denies any surgical pain, fever, chills, or drainage from surgical site. Tolerating regular diet and having normal bowel movements. She is present today with her and daughter to discuss her options and recommendations for her breast cancer. Exam Incisions: Clean and intact, healing welling. No drainage or erythema noted. Minimal bruising Pathology: Left breast mass, lumpectomy: -- Infiltrating [...] MX ER: Positive (96.6 %, intensity: strong) WA: Positive (22.5 %, intensity: moderate) Her-2-osmin: Not over-expressed (score 1+) Ki-67: Borderline proliferation (19.4 %) A/P: PO Left Breast Excisional Biopsy with Needle Localizatin Left breast Cancer ER/WA (+) At this time, I discussed with the patient her diagnosis of breast cancer. She and I reviewed the pathology report and discussed the plan to treat her breast cancer. We first discussed surgical options for treating breast cancer-partial mastectomy or mastectomy. She is already underwent excisional biopsy/lumpectomy and has negative margins. She will not need further surgical intervention on her breast. I did discuss in detail that as she has invasive disease she will need to have her lymph nodes evaluated. I have discussed a sentinel lymph node biopsy with the patient and her family. We discussed the procedure in full detail as well as risk and benefits and I will help her set this up at the earliest convenience. We then discussed the medical treatment of breast cancer including chemotherapy and endocrine therapy. Her cancer was hormone positive and she will be referred to Medical Oncology for additional recommendations and evaluation. I will set up an appointment with . We also discussed radiation therapy and its role with lumpectomy. She has negative margins and had a small tumor but I will still send her to Radiation Oncology for evaluation. All of her questions were answered. I gave the patient and her family a copy of the pathology and breast cancer information sheet as well as a breast cancer binder. She has several people in her family with breast cancer and is requesting to see genetic counselor.I will have my office help her set this up at her convenience. documented in this encounter Plan of Treatment Scheduled Referrals Name Type Priority Associated Diagnoses Order Schedule AMB REFERRAL TO HEMATOLOGY ONCOLOGY Outpatient Referral Routine Infiltrating ductal carcinoma of left breast (HCC) 1 Occurrences starting 09/02/2017 until 09/02/2018 documented as of this encounter Goals Goal Patient Goal Type Associated Problems Recent Progress Patient-Stated? Author Blood Pressure < 140/90 Blood Pressure 127/52(2022 8:09 AM MANAGER SALT) No Alisa Jaramillo HEMOGLOBIN A1C < 7.0 Result Component 5.4( 12:00 AM CDT) No Alisa Jaramillo documented as of this encounter Results * NM SENTINEL NODE [...] Diagnosis Infiltrating ductal carcinoma of left breast (HCC)- Primary Infiltrating ductal carcinoma of left breast (HCC) documented in this encounter Care Teams Imcu Nurse Relationship Specialty Start Date End Date Etienne Florez MD Orthopedic Surgery 12/09/14 documented as of this encounter
--- OUTSIDE RECORDS SUMMARY | 2024-05-26 12:43 | XMS_ITS | Encounter Summary ---
Author Organization [facility] Address [address] [address] Care Team Providers Care Oracle Obiee Developer Name Role Phone Etienne Florez MD Unavailable [phone] Reason for Visit * Reason Onset Date Comments MEDICATION REFILL 08/22/2017 Encounter Details Date Type Department Care Team (Late st Contact Info) Description 08/22/2017 Refill [facility] - Family Medicine [address] [place] [address] [address] [place] [address] Jarrell Garrison MD [facility] [address] [address] MEDICATION REFILL Social History Tobacco [...] * Telephone Encounter - Vinny Ahmadi - 08/22/2017 12:22 PM CDT Perla Leon is in need of Her Requested Prescriptions Pending Prescriptions Disp Refills ??? lubiprostone (AMITIZA) 24 MCG capsule 30 capsule 0 Sig: Take 1 capsule by mouth daily with breakfast Person calling for the refill: Patient Last office visit 08/19/17 Next Appointment scheduled: 10/22/2017 Last Refill for this medication 07/22/17 Does patient have any new allergies since last office visit? No Was the pharmacy verified? Yes If this is a controlled substance was the Last 4 of SSN verified? NOT APPLICABLE (If unable to verify last 4 of SSN transfer to the clinic for further review) Patient requests days for mail order documented in this encounter Plan of Treatment Not on file documented as of this encounter Goals Goal Patient Goal Type Associated Problems Recent Progress Patient-Stated? Author Blood Pressure < 140/90 Blood Pressure 127/52(2022 8:09 AM MASTER AT ARMS) No Alisa Jaramillo HEMOGLOBIN A1C < 7.0 Result Component 5.4( 12:00 AM CDT) No Alisa Jaramillo documented as of this encounter Visit Diagnoses Not on filedocumented in this encounter Care Teams Oracle Obiee Developer Relationship Specialty Start Date End Date Etienne Florez MD Orthopedic Surgery 12/09/14 documented as of this encounter
--- OUTSIDE RECORDS SUMMARY | 2024-05-26 12:43 | XMS_ITS | Encounter Summary ---
Author Organization [facility] Address [address] [place] [address] Care Team Providers Care Neurology Specialist Name Role Phone Etienne Florez MD Unavailable [phone] Reason for Referral * Radiology Services (Routine) - Closed Specialty Diagnoses / Procedures Referred By Alejandrina vale Referred To Contact Diagnoses Abnormal mammogram Procedures US BREAST LEFT LTD Jarrell Garrison MD [address] [place] [address] Referral ID Status Reason Start Date Expiration Date Visits Re quested Visits Authorized [id number] Closed 07/07/2017 01/03/2018 1 1 Reason for Visit * Radiology Services (Routine) - Closed Specialty Diagnoses / Procedures Referred By Contac t Referred To Contact Diagnoses Abnormal mammogram Procedures US BREAST LEFT LTD Jarrell Garrison MD [address] [place] [address] Referral ID Status Reason Start Date Expiration Date Visits Re quested Visits Authorized [id number] Closed 07/07/2017 01/03/2018 1 1 Encounter Details Date Type Department Care Team (Late st Contact Info) Description 07/30/2017 9:42 AM CDT - 07/30/2017 11:59 PM CDT Hospital Encounter [facility] - Ultrasound [address] [facility] [address] [place] [address] Jarrell Garrison MD [address] [facility] [address] [place] [id number] Discharge Disposition: Home or Self Care Social [...] by mouth at bedtime 90 Tab 2 12/04/2016 09/08/2017 Cyanocobalamin 1000 MCG Take by mouth once [...] by mouth daily with breakfast 30 capsule 07/22/2017 08/22/2017 menthol-zinc oxide (CALMOSEPTINE) 0.44-20.6 % ointment Apply to affected area as needed for Other 09/14/2020 metOLazone (ZAROXOLYN) 2.5 MG tablet Take 1 tablet by mouth twice a week on Friday and 05/30/2022 Polyethyl Glycol-Propyl Glycol (SYSTANE ULTRA OP) by Ophthalmic route as needed 08/22/2017 potassium chloride (KLOR-CON 10) 10 MEQ tablet Take 1 tablet by mouth once daily The patient should only Take 4 tabs with breakfast please disregard the 1 tablet by mouth daily 90 tablet 1 07/24/2017 08/19/2017 potassium chloride (KLOR-CON 10) 10 MEQ tablet Take 1 tablet by mouth once daily Take 4 tabs with breakfast 90 tablet 1 07/14/2017 08/05/2017 psyllium (METAMUCIL) 58.6 % powderIndications:Cons tipation Take [...] < 140/90 Blood Pressure 127/52(2022 8:09 AM SYSTEM SPECIALIST) No Alisa Jaramillo HEMOGLOBIN A1C < 7.0 Result Component 5.4( 12:00 AM CDT) No Alisa Jaramillo documented as of this encounter Procedures Procedure Name Priority Date/Time Associated Diagnosis Comments US BREAST LEFT LTD Routine 07/30/2017 10 :33 AM CDT Abnormal mammogram documented in this encounter Results * (ABNORMAL) US BREAST LEFT LTD (07/30/2017 10:33 AM CDT) Anatomical Region Laterality [...] 10:46 AM Jarrell Garrison MD US ORDERABLES documented in this encounter Visit Diagnoses Diagnosis Abnormal mammogram Abnormal mammogram, unspecified documented in this encounter Care Teams Neurology Specialist Relationship Specialty Start Date End Date Etienne Florez MD Orthopedic Surgery 12/09/14 documented as of this encounter
--- OUTSIDE RECORDS SUMMARY | 2024-05-26 12:43 | XMS_ITS | Encounter Summary ---
Author Organization [facility] Address [address] [place] [address] Care Team Providers Care Self Pay Representative Name Role Phone Etienne Florez MD Unavailable Encounter Details Date Type Department Care Team (Late st Contact Info) Description 08/19/2017 2:11 PM CDT - 08/19/2017 11:59 PM CDT Hospital Encounter [facility] [address] [place] [address] Jarrell Garrison MD [address] [facility] [address] [place] [phone] Discharge Disposition: Home or Self Care Social [...] 140/90 Blood Pressure 127/52(2022 8:09 AM STUDENT AMBASSADOR) No Alisa Jaramillo HEMOGLOBIN A1C < 7.0 Result Component 5.4( 12:00 AM CDT) No Alisa Jaramillo documented as of this encounter Procedures Procedure Name Priority Date/Time Associated Diagnosis Comments EKG 12-LEAD Routine 08/19/2017 2:39 PM CDT Preop examination documented in this encounter Results * EKG 12-LEAD (08/19/2017 2:39 PM CDT) Ventricular Rate 59 BPM [facility] Atrial Rate 59 BPM [facility] P-R Interval 166 ms [facility] QRS Duration ms 118 ms [facility] Q-T Interval ms 474 ms [facility] QTC Calculation (Bezet) 469 ms [facility] Calculated P [place] 69 degrees [facility] Calculated R [place] -25 degrees [facility] Calculated T [place] 62 degrees [facility] Interpretation EKG Sinus bradycardia Cannot rule out Septal infarct (cited on or before 28-DEC-2016) Abnormal ECG Confirmed by KENY JACKSON MD ([id number]) on 08/22/2017 7:03:55 PM [facility] 08/19/2017 2:39 PM CDT 08/22/2017 7:03 PM CDT Jarrell Garrison MD ECG ORDERABLES [facility] documented in this encounter Visit Diagnoses Diagnosis Preop examination- Primary Preoperative examination, unspecified documented in this encounter Care Teams Self Pay Representative Relationship Specialty Start Date End Date Etienne Florez MD Orthopedic Surgery 12/09/14 documented as of this encounter
--- OUTSIDE RECORDS SUMMARY | 2024-05-26 12:43 | XMS_ITS | Encounter Summary ---
Author Organization [facility] Address [address] [place] [address] Care Team Providers Care Protective Service Specialist Name Role Phone Etienne Florez MD Unavailable [phone] Reason for Visit * Auth/Cert Specialty Diagnoses / Procedures Referred By Contandrea t Referred To Contact Procedures EXCISION LESION/MASS BREAST Referral ID Status Reason Start Date Expiration Date Visits Re quested Visits Authorized [id number] 1 1 Encounter Details Date Type Department Care Team (Late st Contact Info) Description 08/25/2017 9:30 AM CDT - 08/25/2017 10:31 AM CDT Surgery Formerly [facility] - Perioperative Surgery [address] [place] [address] [place] [id number] [id number] EXCISION LEFT BREAST BX W/WIRE LOC IN RADIOLOGY Surgery Details Date/Time Status Location OR Service Patient Class Case Class Case Type Trauma Case? 08/25/2017 9:30 AM Posted [facility] MAIN OR OR 08 General Surgery Day Care Elective > 5 days Panel 1 Procedure LRB Anes Op Region Wound Class Comments EXCISION LEFT BREAST BX W/WI RE LOC IN RADIOLOGY Left General Breast Clean Surgeon Surgeon Role Service Panel Shira Love DO Primary General 1 Special Needs WIRE LOC 8:30 documented in this encounter Social History Tobacco [...] Sign Reading Time Taken Comments Blood Pressure 131/53 08/26/2017 7:32 AM CDT Pulse 85 08/26/2017 7:32 AM CDT Temperature 36.9 ??C (98.4 ??F) 08/26/2017 7:32 AM CD T Respiratory Rate 17 08/26/2017 7:32 AM CDT Oxygen Saturation 91% 08/26/2017 7:32 AM CDT Inhaled Oxygen Concentration - - Weight 96.2 kg (212 lb) 08/25/2017 7:11 AM CDT Height 165.1 cm (5' 5 ) 08/25/2017 7:11 AM CDT Body Mass Index 35.28 08/25/2017 7:11 AM CDT documented in this encounter Functional [...] 12/28/2016 documented as of this encounter Discharge Summaries * Shira Love DO - 08/26/2017 9:26 AM CDT Physician Discharge Summary Patient Name: Perla Leon Date of : 1940 Admit date: 08/25/2017 Discharge date: 08/26/2017 Admitting Physician: Shira L Kate, DO Attending Physician: Shira L Kate, DO Discharge Physician: Shira Love, DO Admission Diagnosis: Left breast mass, shortness of breath, atypical chest pain, resolved Past Medical History Past Medical History: Diagnosis Date ??? Asthma 2012 ??? Atrial fibrillation 2015 ??? Broken ankle 12/19/2003 ??? DM (diabetes mellitus) ??? Duodenal ulcer, unspecified as acute or chronic, without hemorrhage, perforation, or obstruction 1977 ??? Familial spastic paraplegia 1979 ??? Fracture of sacrum 05/1999 [facility] WRECK ??? Glaucoma 06/2003 ??? Heart murmur 01/27/2004, 03/13/2004 ??? Lymphatic edema ??? Obesity ??? Partial seizures 2000 ??? Pneumonia 1989, 08/2005, 07/2010 ??? Shingles 2002, 2006 ??? TIA (transient ischemic attack) 2000, 08/11/2008 Discharge Diagnoses Other chest pain Hypokalemia Diagnostic Studies Recent Labs Component Name 08/26/17 0413 08/25/17 0717 06/12/17 0823 SODIUM 140 142 141 POTASSIUM 3.1* 2.9* 3.5 CHLORIDE 104 105 102 CO2 31 29 31 BUN 21 21 15 CREATININE 0.89 0.80 0.92 GLUCOSE 167* 122* 90 CALCIUM 9.3 9.8 10.4 Recent Labs Component Name 08/26/17 0413 08/25/17 0717 06/12/17 0823 WBC 12.6* 6.3 8.2 HGB 10.0* 11.6* 11.2* HCT 33.4* 38.7 37.2 PLTCOUNT 386 388 425* No results for input(s): TROPONIN in the last 95741 hours. Treatments See hospital course Procedures surgery: left breast excisional biopsy Consults Hospitalist Hospital Course Admitted from PACU due to dyspnea and hypoxia and atypical chest pain. Medicine team consulted. Troponins were negative. Chest Xray was unremarkable. Over night RN able to wear 02 and no shortness ofbreath. POD1; patient had no complaints besides unable to get CPAP but no symptoms. Holding plavix until as directed as she just had surgery. Follow up with PCP in 1 week. Ok to d/c home in stable condition as her VS are stable, ambulated, urinating and pain controled. Condition at discharge: stable Disposition: Home Code Status At Discharge Full Code Patient Instructions Current Discharge Medication List START taking these medications Instructions Authorizing Provider HYDROcodone-acetaminophen 5-325 MG tablet Commonly known as: NORCO Take 1 tablet by mouth every 6 hours as needed for Pain Shira Love Jason CONTINUE taking these medications which have NOT CHANGED Instructions Authorizing Provider amitriptyline 25 MG tablet Commonly known as: ELAVIL Take 2 tablets by mouth at bedtime Nelson Ross aspirin 81 MG tablet Commonly known as: ASPIRIN Take 81 mg by mouth once daily CALMOSEPTINE 0.44-20.6 % ointment Generic drug: menthol-zinc oxide Apply to affected area as needed for Other clopidogrel 75 MG tablet Commonly known as: PLAVIX Take 1 Tab by mouth at bedtime Jarrell Garrison Cyanocobalamin 1000 MCG Take by mouth once daily. empagliflozin 10 MG tablet Commonly known as: JARDIANCE Take 1 Tab by mouth once daily Jarrell Garrison esomeprazole 40 MG capsule Commonly known as: NEXIUM Take 1 Cap by mouth once daily Jarrell Garrison FLECAINIDE ACETATE PO Take 50 mg by mouth 2 times daily furosemide 40 MG tablet Commonly known as: LASIX Take 1 Tab by mouth once daily Jarrell Garrison glimepiride 1 MG tablet Commonly known as: AMARYL Take 1 Tab by mouth 3 times daily,before breakfast/lunch/bedtime 1.5 tab po with Breakfast, 2 tab with lunch, 2.5 with dinner. insulin detemir vial Commonly known as: LEVEMIR Inject 10 Units subcutaneously at bedtime latanoprost 0.005 % ophthalmic solution Commonly known as: XALATAN Instill 1 drop into both eyes at bedtime lubiprostone 24 MCG capsule Commonly known as: AMITIZA Take 1 capsule by mouth daily with breakfast Jarrell Garrison metOLazone 2.5 MG tablet Commonly known as: ZAROXOLYN Take 2.5 mg by mouth every 7 days multivitamin with iron tablet Take 1 Tab by mouth once daily. potassium chloride 10 MEQ tablet Commonly known as: KLOR-CON 10 Take 1 tablet by mouth once daily The patient should only Take 4 tabs with breakfast please disregard the 1 tablet by mouth daily Jarrell Garrison PROAIR HFA 108 (90 BASE) MCG/ACT inhaler Generic drug: albuterol HFA Take 2 Puffs by mouth every 4 hours as needed. psyllium 58.6 % powder Commonly known as: METAMUCIL Take 1 Packet by mouth 3 times daily Reasons: Constipation rosuvastatin 10 MG tablet Commonly known as: CRESTOR Take 1 Tab by mouth at bedtime Jarrell Garrison SITagliptin 50 MG tablet Commonly known as: JANUVIA Take 100 mg by mouth once daily SYSTANE OVERNIGHT THERAPY 0.3 % ophthalmic gel Generic drug: hydroxypropyl methylcellulose 0.3% Instill 1 Drop into both eyes nightly as needed for Dry Eyes verapamil SR 24hr 240 MG capsule Commonly known as: VERELAN Take 240 mg by mouth once daily Discharge Procedure Orders Why you were hospitalized Order Specific Question Answer Comments Your discharge diagnosis is: Left breast mass [[id number]] Follow up with Primary Care Provider (PCP) Our records show your Primary Care Provider (PCP) is Jarrell Garrison MD. Order Specific Question Answer Comments Follow Up Instructions: asneeded No special diet needed Resume your normal home diet as tolerated. Light diet and increase as tolerated -- Start light diet today (soup, Jell-O, toast). -- If you do not have any nausea or vomiting, you may resume your normal home diet. -- In case of nausea or vomiting, reduce diet to fluids that are low in acid (water, sports drinks,white soda). -- As you are able to tolerate the fluids, gradually increase your diet. No alcoholic drinks For 24 hour(s). Activity as tolerated Rest today, and increase activity level tomorrow as tolerated. No heavy lifting Do not lift anything over 10 pounds for [address] For 24 hour(s). Shower with incision uncovered You may take showers with your incision uncovered tomorrow. No tub baths Until your follow up visit. Special activity instructions Wear bra and ice pack to incision for the next 24-48 hours; on and off for 20 minutes. Keep incision dry If draining Follow up with provider Order Specific Question Answer Comments Follow Up Instructions: as scheduled No anticoagulants (blood-thinning medications) For 2 day(s). Ok to Restart Plavix on Friday -- Examples of blood thinning medications include, but are not limited to, Coumadin, warfarin, Plavix, Lovenox, Aggrenox, Xarelto and Pradaxa. -- Please ask if you are unsure about any medications. documented in this encounter Medications at Time [...] as of this encounter Progress Notes * Cora Johnson RN - 08/26/2017 11:34 AM CDT Case Management Initial Assessment Case Management screen completed, welcome letter given. Met with patient Lives with:: Spouse Family Support (name and phone): yes Extended Emergency Contact Information Primary Emergency Contact: Thiago Leon [address]: [address] [place] [address] Relation: Spouse Secondary Emergency Contact: Ange Reyes [facility] Relation: Daughter Anticipated Discharge Date: Anticipated level of care at discharge: Unknown Prior Level of Functioning: independent Equipment at Home: Walker is needed Additional Equipment needed at home (does not have at home now): PCP: Jarrell Garrison MD If no PCP, action taken: Pharmacy benefit: Yes SW Referral: no Readmission Risk Score: OSD CLERK TOTAL SCORE: 5 If there is no score indicated, this patient has yet to be assessed for Readmission Risk. If patient requires HHC at discharge, he/she requests: none Transportation to MD appointments:Family Comments late entry:: I met with pt at the bedside, pt present to the hospital for breast bx. Pt d/cplan is home with family upon d/c. Will continue to follow. For any questions or needs please contact: Rib Cutter Name/Phone number: Cora Johnson [phone] * Nevin Moreno - 08/26/2017 10:47 AM CDT VSS. Pt has denied any pain this shift. Bra put on pt per orders and ice pack given. Was informed by night nurse that respiratory therapy did not want to put on CPaP due to the time of day. Pt's daughter called very upset about that and wanted to speak with the respiratory department. Dr Love informed of that and cleared pt for discharge. Bed low, locked, and call light in reach. Will continue to monitor until discharge. * Nevin Moreno - 08/26/2017 10:46 AM CDT Problem: Moderate Fall Risk (Score 11-14) Goal: Patient will remain as independent as possible. Outcome: Ongoing Perla will remain as independent as possible this shift Problem: Impaired Gas Exchange Goal: Resp rate/effort will be within specified limits Outcome: Ongoing Perla's resp rate/effort will be within acceptable limits this shift Problem: Pain/Discomfort Goal: Patient exhibits reduced pain/discomfort as evidenced by pain scores Outcome: Ongoing Perla will exhibit a reduction in pain/discomfort as evidenced by her pain scores * Shira Love DO - 08/26/2017 9:19 AM CDT General & Vascular Surgery Daily Progress Note POD # 1 s/p excisional biopsy of left breast Subjective Patient seen and examined. No CP or SOB this am.Unable to get CPAP overnight for some reason, patient quiet upset about it. No breast pain No bra was given to patient like instructed Data Vitals: 08/25/17 2359 08/26/17 0211 08/26/17 0320 08/26/17 0732 BP: 126/53 137/50 131/53 Pulse: 93 93 97 85 Resp: Temp: 98.8 ??F (37.1 ??C) 98.3 ??F (36.8 ??C) 98.4 ??F (36.9 ??C) SpO2: 93% 95% 91% Weight: BP 131/53 Pulse 85 Temp 98.4 ??F (36.9 ??C) Resp 17 Ht 5' 5 (1.651 m) Wt 212 lb (96.2 kg) SpO2 91%BMI 35.28 kg/m2 BP 131/53 Pulse 85 Temp 98.4 ??F (36.9 ??C) Resp 17 Wt 212 lb (96.2 kg) SpO2 91% BMI 35.28 kg/m2 FiO2: Intake/Output Summary (Last 24 hours) at 08/26/17 0920 Last data filed at 08/25/17 2100 Gross per 24 hour Intake 440 ml Output 320 ml Net 120 ml Exam General appearance: alert, cooperative, no distress Heart: RRR Lungs: breath sounds normal and symmetric bilaterally Abdomen: Soft ND NT BS (+) Left Incisions: CDI w/ glue Extremities: chronic venous stasis changes of bilateral LE no cellulitis or infections noted Neuro: Alert & oriented x3 Labs Recent Labs Component Name 08/26/1741208/25/17 0717 06/12/17 0823 SODIUM 140 142 141 POTASSIUM 3.1* 2.9* 3.5 CHLORIDE 104 105 102 CO2 31 29 31 BUN 21 21 15 CREATININE 0.89 0.80 0.92 GLUCOSE 167* 122* 90 CALCIUM 9.3 9.8 10.4 Recent Labs Component Name 08/26/173 08/25/17 0717 06/12/17 0823 WBC 12.6* 6.3 8.2 HGB 10.0* 11.6* 11.2* HCT 33.4* 38.7 37.2 PLTCOUNT 386 388 425* No results for input(s): CKMB in the last 80714 hours. No results for input(s): TROPONIN in the last 19594 hours. Assessment and Plan 76 y/o female s/p left excisional bx breast Surgically stable Pain control OOB/Ambulate ADAT Ok to d/c from surgical standpoint Follow up with PCP 1 week Follow up in office as scheduled NO PLAVIX until Wear bra at all times for next 24 hours as instructed Discussed lower extremity skin changes; chronic in nature. Continue wearing lymphedema pumps and compression stockings. No need for abx/sign of infection Shira Love DO General Surgery 9:20 AM 08/26/2017 [facility] Office: [phone] Exchange: [phone] * Nevin Moreno - 08/25/2017 7:00 PM CDT Pt brought to the unit at 1700 from pacu. Report taken from Rosa. Reported to pt that we are not sure yet which provider will be overseeing care and will keep her informed once we know and when orders are submitted. Family remained at the bedside. * Rosa Downs RN - 08/25/2017 4:15 PM CDT [id number] [employer] HAS A VISUAL ON TELEMETRY 611 * Rosa Downs RN - 08/25/2017 2:48 PM [address]T TALKED WITH DR. LOVE. ORDER FOR CXR. AWAITING NURSE PRACTITIONER TO ASSESS PATIENT. * Rosa Downs RN - 08/25/2017 2:[address]T CALL INTO DR. LOVE REGARDING PATIENT OXYGEN SATURATION 86-88% ON ROOM AIR. AWAITING RETURN CALL. * Rosa Downs RN - 08/25/2017 2:[address] AGUILAR CALLED FOR OXYGEN SATS 86- 88%. ORDER FOR NEB TREATMENT documented in this encounter H&P Notes * Shira Love DO - 08/21/2017 10:49 AM CDT This patient? s prior H&P was reviewed, the patient was examined and no change has occurred in the patient's condition since the prior H&P was completed. Shira Love DO Source Note - Shira Love DO - 08/05/2017 12:37 PM [...] Repair 01/17/2010 ??? Hysterectomy 1986 ??? Knee Replacement 05/06/2001, 09/27/2003 RT KNEE [...] dominant mass lesion. Data Reviewed: Mammograms from [facility] reviewed today. FINDINGS: A small spiculated distortion [...] abnormality.?? RECOMMENDATIONS: Surgical consultation. ?? Ultrasound from [facility] reviewed today. Directed grayscale ultrasound performed and [...] provided is accurate. documented in this encounter Consult Notes * Stu Gracia, UNDERGROUND HEAVY EQUIPMENT OPERATOR-PILLOWCASE SEWER - 08/25/2017 11:23 PM CDTAssociated Order(s): IP CONSULT TO INTERNAL MEDICINE [facility] Consult Note Admitting Provider : Shira Love DO Reason for Consultation: Medical management History of Present Illness Perla Leon is an 76 y.o. female who is a patient of Jarrell Garrison MD who was admitted s/p Left Breast Excisional Biopsy with Needle Localization. Medical history includes TIA, heart murmur, glaucoma, duodenal ulcer, DM, A-fib, and asthma. Patient complains of chest tightness, intermittent dry cough and mild nausea. She denies chest pain, SOB, vomiting, abdominal pain, or dysuria. She is a non-smoker and denies alcohol or illicit drug use. Labs: Glucose 122, K 2.9, Hgb 11.6, MCV 74.7. Past Medical History: Diagnosis Date ??? Asthma 2012 ??? Atrial fibrillation 2015 ??? Broken ankle 12/19/2003 ??? DM (diabetes mellitus) ??? Duodenal ulcer, unspecified as acute or chronic, without hemorrhage, perforation, or obstruction 1977 ??? Familial spastic paraplegia 1979 ??? Fracture of sacrum 05/1999 [facility] WRECK ??? Glaucoma 06/2003 ??? Heart murmur 01/27/2004, 03/13/2004 ??? Lymphatic edema ??? Obesity ??? Partial seizures 2000 ??? Pneumonia 1989, [...] PRECANCERSOUS SPOTS ON RT AND LT ARM Family History Problem Relation Age of Onset ??? Cancer - Breast Mother ??? Coronary Artery Disease Father CHF ??? Coronary Artery Disease Brother CHF Social History Social History ??? Marital status: Spouse name: N/A ??? Number of children: N/A ??? Years of education: N/A Social History Main Topics ??? Smoking status: [...] reaction(s): Other (See comments) Reaction: colon problems, Prior to Admission medications Medication Sig Start Date End Date Taking? Authorizing Provider HYDROcodone-acetaminophen (NORCO) 5-325 MG tablet Take 1 tablet by mouth every 6 hours as needed for Pain 08/25/17 Yes Shira Love DO lubiprostone (AMITIZA) 24 MCG capsule Take 1 capsule by mouth daily with breakfast 08/22/17 Yes Jarrell Garrison MD potassium chloride (KLOR-CON 10) 10 MEQ tablet Take 1 tablet by mouth once daily The patient shouldonly Take 4 tabs with breakfast please disregard the 1 tablet by mouth daily 08/19/17 Yes Jarrell Garrison MD metOLazone (ZAROXOLYN) 2.5 MG tablet Take 2.5 mg by mouth every 7 days Yes Desiree Walker MD amitriptyline (ELAVIL) 25 MG tablet Take 2 tablets by mouth at bedtime 04/14/17 Yes Nelson Ross MD psyllium (METAMUCIL) 58.6 % powder Take 1 Packet by mouth 3 times daily Reasons: Constipation Yes Desiree Walker MD hydroxypropyl methylcellulose 0.3% (SYSTANE OVERNIGHT THERAPY) 0.3 % ophthalmic gel Instill 1 Drop into both eyes nightly as needed for Dry Eyes Yes Desiree Walker MD furosemide (LASIX) 40 MG tablet Take 1 Tab by mouth once daily 12/04/16 Yes Jarrell Garrison MD rosuvastatin (CRESTOR) 10 MG tablet Take 1 Tab by mouth at bedtime 11/05/16 Yes Jarrell Garrison MD esomeprazole (NEXIUM) 40 MG capsule Take 1 Cap by mouth once daily 10/21/16 Yes Jarrell Garrison MD empagliflozin (JARDIANCE) 10 MG tablet Take 1 Tab by mouth once daily 10/21/16 Yes Jarrell Garrison MD verapamil SR 24hr (VERELAN) 240 MG capsule Take 240 mg by mouth once daily Yes Desiree Walker MD FLECAINIDE ACETATE PO Take 50 mg by mouth 2 times daily Yes Desiree Walker MD aspirin (ASPIRIN) 81 MG tablet Take 81 mg by mouth once daily Yes Desiree Walker MD insulin detemir (LEVEMIR) vial Inject 10 Units subcutaneously at bedtime Yes Desiree Walker MD sitaGLIPtin (JANUVIA) 50 MG tablet Take 100 mg by mouth once daily Yes Desiree Walker MD latanoprost (XALATAN) 0.005 % ophthalmic solution Instill 1 drop into both eyes at bedtime Yes Desiree Walker MD glimepiride (AMARYL) 1 MG tablet Take 1 Tab by mouth 3 times daily,before breakfast/lunch/bedtime 1.5 tab po with Breakfast, 2 tab with lunch, 2.5 with dinner. Yes Desiree Walker MD multivitamin with iron (ONE A DAY WITH IRON) tablet Take 1 Tab by mouth once daily. Yes Desiree Walker MD Cyanocobalamin (B-12) 1000 MCG TBCR Take by mouth once daily. Yes Desiree Walker MD menthol-zinc oxide (CALMOSEPTINE) 0.44-20.6 % ointment Apply to affected area as needed for Other Provider, MD Desiree clopidogrel (PLAVIX) 75 MG tablet Take 1 Tab by mouth at bedtime 12/04/16 Jarrell Garrison MD albuterol HFA (PROAIR HFA) 108 (90 BASE) MCG/ACT inhaler Take 2 Puffs by mouth every 4 hours as needed. Provider, MD Desiree Review of Systems - Denies lightheaded, dizziness, Headaches, blurred vision, sore throat, hearing impairment. SOB, Chest Pain, or tachycardia. Denies Nausea/Vomiting, constipation or diarrhea. Denies urinary burning/frequency. Denies joint or muscle pain. Denies LE swelling. Denies skin lesions. Denies depression or suicidal ideation. 12 system were reviewed, all other were negative. Physical Exam Vitals: 08/25/17 1630 08/25/17 1645 08/25/17 1720 08/25/17 1941 BP: 143/55 146/66 128/66 Pulse: 82 82 96 91 Resp: Temp: 97.6 ??F (36.4 ??C) 98.7 ??F (37.1 ??C) SpO2: 94% 94% 96% 97% Weight: General: alert, cooperative, no distress, appears stated age HEENT: Head: normacephalic, Eyes: Perrla, EOMI bilaterally, nasal and oral mucosal pink and moist. Heart: normal rate, regular rhythm, normal S1, S2, no murmurs, rubs, clicks or gallops Lungs: Diminished, clear to auscultation, no wheezes or rales and unlabored breathing Abdomen: soft, nontender, nondistended, no masses or organomegaly Extremities: peripheral pulses normal, no pedal edema, no clubbing or cyanosis Neuro: alert, oriented x 3, no defects noted in general exam. DATA Recent Labs Component Name 08/25/17 0717 06/12/17 0823 12/29/16 0121 CO2 29 31 27 BUN 21 15 14 CREATININE 0.80 0.92 0.91 GLUCOSE 122* 90 181* CALCIUM 9.8 10.4 8.8 EGFR >60 60 60 WBC 6.3 8.2 6.6 HGB 11.6* 11.2* 10.8* HCT 38.7 37.2 35.0* Assessment and Plan: Atypica; Chest Pain -s/p Left Breast Excisional Biopsy with Needle Localization -check troponin -telemetry Hypokalemia -K 2.9 -PO 40 mEq KCl x 1 dose -continue home potassium supplement -continue to monitor -check magnesium A-fib -telemetry -continue home Tambocor Microcytic Anemia -likely due to iron deficiency -Hgb 11.6 -MCV 74.7 -no sign of active bleeding -continue to monitor -follow-up outpatient Type II Diabetes Mellitus - Uncontrolled Hyperglycemia Recent Labs Component Name 08/26/17 0413 05/02/17 12/29/16 0121 HGBA1C 7.0* 7.1 6.8* -hold oral anti-diabetic medication -Levemir 6 units at bedtime -monitor Glucose levels carefully. -accuchecks four times daily ac meals and qhs. -use Sliding Scale Insulin prn. History of TIA -continue ASA and Plavix Glaucoma -stable -continue home opthalmic drops Obesity Body mass index is 35.28 kg/(m^2). -Encouraged dietary modifications and lifestyle changes. Duodenal Ulcer- History -Protonix 40 mg once daily DVT Prophylaxis -SCDs. -Heparin 5000 units subcutaneously BID. Thank you for allowing us the opportunity to participate in the care of this patient. We will co-manage with you. Stu Gracia APRN-PILLOWCASE SEWER 08/25/2017 documented in this encounter OR Notes * Operative - Shira Love DO - 08/25/2017 11:12 AM CDT Operative Note Date: 08/25/2017 Preoperative Diagnosis: Left breast mass Operative Diagnosis: Left breast mass Procedure: 1. Left Breast Excisional Biopsy with Needle Localization 2. Intraoperative specimen radiograph Surgeon: Shira Love DO Topology Teacher: DANIA Basilio Type of anesthesia: General, Local Specimens: 1. Left Breast Tissue (short stitch superior, long stitch lateral) Complications: none EBL: 20 cc Drains: none Brief findings: 76 y/o female with left breast mass/abdnormal mammogram who is unable to tolerate ultrasound guided biopsy is consented for excisional biopsy. Intraoperative findings consisted with left breast mass with wire localization. Intraoperative radiograph demonstrated mass and wire in the center of specimen. Description of Procedure: 76 y.o. female explained risks and benefits of Left breast excisional biopsy. Patient voiced understanding of procedure. Consent was obtained and placed in the chart. Patient was then taken to the radiology department where a wire localization was done. Patient was then transferred to the operating room where she was placed in a supine position. Bilateral sequential compression devices were applied to both lower extremities. A single dose of Ancef 2g was administered intravenously prior to incision. A member of the anesthesia team performed General anesthesia. The patient was then prepped and draped in a sterile fashion with the pre-operative skin marking able to be viewed. Attention was then focused on the breast. The right breast was examined. The needle localization wire was noted to enter the breast on the lateral side. A field block was created at the site. The Curvilinear incision was made at the 12-1 o'clock position then made using the scalpel and carried downthrough the dermis with electrocautery. Using the wire as a guide, I excised the tissue at the superior, inferior,medial and lateral aspects of it. These were taken posterior to the wire. The tissue was then transected from the posterior attachments and marked with a short stitch superior and a long stitch on the lateral margin. A specimen radiograph done in the operating room demonstrated that the lesion and wire was centrally located within the specimen. Attention was then turned to the wound. [...] Diagnoses Order Schedule EKG 12-LEAD ECG Routine Other chest pain ONCE for 1 Occurrences starting 08/25/2017 until 08/25/2017 INITIATE RT BRONCHODILATOR PROTOCOL Respiratory Care Routine ONCE for 1 Occurrences starting 08/26/2017 until 08/26/2017 documented as of this encounter Goals Goal Patient Goal Type Associated Problems Recent Progress Patient-Stated? Author Blood Pressure < 140/90 Blood Pressure 127/52(2022 8:09 AM PATTERN FINISHER) No Alisa Jaramillo HEMOGLOBIN A1C < 7.0 Result Component 5.4( 12:00 AM CDT) No Alisa Jaramillo documented as of this encounter Procedures Procedure Name Priority Date/Time Associated Diagnosis Comments CARDIAC RHYTHM STRIP ORDER 08/29/2017 2:30 PM CDT GLUCOSE - POINT OF CARE Routine 08/26/2017 7:31 AM CDT TROPONIN I Routine 08/26/2017 4:13 AM CDT Other chest pain HEMOGLOBIN A1C Routine 08/26/2017 4:13 AM CDT Other chest pain Type 2 diabetes mellitus without complication, with long-term current use of insulin (HCC) CBC W/O DIFFERENTIAL Routine 08/26/2017 4:13 AM CDT Other chest pain BASIC METABOLIC PANEL (CALCIUM TOTAL) Routine 08/26/2017 4:13 AM CDT Other chest pain MAGNESIUM BLOOD Routine 08/26/2017 4:13 AM CDT Other chest pain Hypokalemia GLUCOSE - POINT OF CARE Routine 08/25/2017 8:24 PM CDT MAMMO BREAST LEFT SPECIMEN Routine 08/25/2017 3:52 PM CDT Preop examination TROPONIN I STAT 08/25/2017 3:50 PM CDT Other chest pain XR CHEST 1VW PORTABLE STAT 08/25/2017 3:01 PM CDT Uncomplicated asthma, unspecified asthma severity, unspecified whether persistent (HCC) EKG 12-LEAD Routine 08/25/2017 2:57 PM CDT Diagnosis unknown GLUCOSE - POINT OF CARE Routine 08/25/2017 11:43 AM CDT EXCISION LESION/MASS BREAST 08/25/2017 10:10 AM CDT Special Needs WIRE LOC 8:30 PATHOLOGY TISSUE EXAM (STL) Routine 08/25/2017 9:27 AM CDT Diagnosis unknown GLUCOSE - POINT OF CARE Routine 08/25/2017 7:22 AM CDT CBC W/O DIFFERENTIAL STAT 08/25/2017 7:17 AM CDT Preop examination BASIC METABOLIC PANEL (CALCIUM TOTAL) STAT 08/25/2017 7:17 AM CDT Preop examination documented in this encounter Results * CARDIAC RHYTHM STRIP ORDER (08/29/2017 2:30 PM CDT) Narrative 08/29/2017 2:30 PM CDT Ordered by an unspecified provider. Scanned Document CARDIAC SERVICES ORD ERABLES * (ABNORMAL) GLUCOSE - POINT OF CARE (08/26/2017 7:31 AM CDT) Glucose WB/POC 151(H) 70 - 106 mg/dL 08/26/2017 12:39 PM CDT [facility] Blood BLOOD SPECIMEN / Unknown 08/26/2017 7:31 AM CDT 08/26/2017 12:39 PM CDT Heidi Gomez DO LAB - POINT OF CARE ORDERABLES [facility] [address] [place] [address] * MAGNESIUM BLOOD (08/26/2017 4:13 AM CDT) Magnesium 2.6 1.6 - 2.6 mg/dL 08/26/2017 6:50 AM CDT [facility] Blood BLOOD SPECIMEN / Unknown Venipuncture / Unknown 08/26/2017 4:13 AM CDT 08/26/2017 6:42 AM CDT Stu Gracia [facility] LAB - CHEMISTR Y ORDERABLES Performing Organization Address [facility] de Phone Number [facility] [address] [place] [address] * (ABNORMAL) HEMOGLOBIN A1C (08/26/2017 4:13 AM CDT) Pathologist [facility] Hemoglobin A1c 7.0(H) 4.2 - 6.3 % 08/26/2017 5:52 AM CDT [facility] Estimated Average Glucose 154 mg/dL 08/26/2017 5:52 AM CDT [facility] Whole Blood BLOOD SPECIMEN WITH EDTA / Unknown Venipuncture / Unknown 08/26/2017 4:13 AM CDT 08/26/2017 4:49 AM CDT Stu Vargas Basil [facility] LAB - CHEMISTR Y ORDERABLES Performing Organization Address [facility] de Phone Number [facility] [address] [place] [address] * TROPONIN I (08/26/2017 4:13 AM CDT) [facility] Troponin I <0.015 0.000 - 0.049 ng/mL 08/26/2017 5:24 AM CDT [facility] Blood BLOOD SPECIMEN / Unknown Venipuncture / Unknown 08/26/2017 4:13 AM CDT 08/26/2017 4:49 AM CDT Narrative [facility] - 08/26/2017 5:24 AM CDT Note: Diagnosis of myocardial infarction requires symptoms of ischemia or EKG changes of ischemia and Troponin I >99th of normal (0.05 ng/mL). Troponin should be drawn on initial assessment and 3-6 hours later as clinically indicated. Any condition resulting in myocardial cell damage can increase cardiac troponin levels. In addition to myocardial infarction, these include but are not limited to congestive heart failure (CHF), arrhythmia, myocarditis, and non-cardiac related causes such as pulmonary embolism, renal failure and sepsis. Stu Gracia [facility] LAB - CHEMISTR Y ORDERABLES Performing Organization Address [facility] Co de Phone Number [facility] [address] [place] [address] * (ABNORMAL) BASIC METABOLIC PANEL (CALCIUM TOTAL) (08/26/2017 4:13 AM CDT) Glucose 167(H) 74 - 106 mg/dL 08/26/2017 5:18 AM CDT [facility] Sodium 140 136 - 145 mmol/L 08/26/2017 5:18 AM CDT [facility] Potassium 3.1(L) 3.5 - 5.1 mmol/L 08/26/2017 5:18 AM CDT [facility] Chloride 104 98 - 107 mmol/L 08/26/2017 5:18 AM CDT [facility] CO2 31 22 - 31 mmol/L 08/26/2017 5:18 AM CDT [facility] Calcium 9.3 8.5 - 10.1 mg/dL 08/26/2017 5:18 AM CDT [facility] Anion Gap 5(L) 8 - 16 mmol/L 08/26/2017 5:18 AM CDT [facility] BUN 21 7 - 21 mg/dL 08/26/2017 5:18 AM CDT [facility] Creatinine 0.89 0.50 - 1.30 mg/dL 08/26/2017 5:18 AM CDT [facility] eGFR by MDRD >60 mL/min/1.7 3m2 08/26/2017 5:18 AM CDT [facility] eGFR by MDRD >60 mL/min/1.7 3m2 08/26/2017 5:18 AM CDT [facility] Blood BLOOD SPECIMEN / Unknown Venipuncture / Unknown 08/26/2017 4:13 AM CDT 08/26/2017 4:49 AM CDT Stu Gracia UNDERGROUND HEAVY EQUIPMENT OPERATOR-PILLOWCASE SEWER LAB - CHEMISTR Y ORDERABLES [facility] [address] [place] [address] * (ABNORMAL) CBC W/O DIFFERENTIAL (08/26/2017 4:13 AM CDT) WBC 12.6(H) 4.4 - 10.7 x10E9/L 08/26/2017 5:00 AM CDT [facility] RBC 4.45 3.80 - 5.20 x10E12/L 08/26/2017 5:00 AM CDT [facility] Hemoglobin 10.0(L) 12.0 - 15.6 gm/dL 08/26/2017 5:00 AM CDT [facility] Hematocrit 33.4(L) 35.9 - 45.5 % 08/26/2017 5:00 AM CDT [facility] MCV 75.1(L) 80.7 - 98.3 fl 08/26/2017 5:00 AM CDT [facility] MCH 22.5(L) 26.7 - 34.0 pg 08/26/2017 5:00 AM CDT [facility] MCHC 29.9(L) 30.8 - 35.9 gm/dL 08/26/2017 5:00 AM CDT [facility] Platelet Count 386 153 - 416 x10E9/L 08/26/2017 5:00 AM T [facility] RDW-CV 19.7(H) 12.1 - 14.9 % 08/26/2017 5:00 AM CDT [facility] MPV 10.8 9.4 - 12.9 fl 08/26/2017 5:00 AM CDT [facility] Blood BLOOD SPECIMEN / Unknown Venipuncture / Unknown 08/26/2017 4:13 AM CDT 08/26/2017 4:49 AM CDT Stu Gracia UNDERGROUND HEAVY EQUIPMENT OPERATOR-PILLOWCASE SEWER LAB - HEMATOLO GY ORDERABLES Performing Organization Address City/State/[facility] Co de Phone Number [facility] [address] [place] [address] * (ABNORMAL) GLUCOSE - POINT OF CARE (08/25/2017 8:24 PM CDT) [facility] Glucose WB/POC 239(H) 70 - 106 mg/dL 08/25/2017 8:46 PM CDT [facility] Specimen Type CAPILLARY BLOOD 08/25/2017 8:46 PM CDT [facility] Blood BLOOD SPECIMEN / Unknown 08/25/2017 8:24 PM CDT 08/25/2017 8:46 PM CDT Shira Love DO LAB - POINT OF CARE ORDERABLES Performing Organization Address [facility] Co de Phone Number [facility] [address] [place] [address] * MAMMO BREAST LEFT SPECIMEN [id number] (08/25/2017 3:52 PM CDT) Shira Love DO MAMMO ORDERABLES Performing Organization Address [facility] Co de Phone Number [facility] [address] [place] [address] * TROPONIN I (08/25/2017 3:50 PM CDT) Troponin I <0.015 0.000 - 0.049 ng/mL 08/25/2017 4:15 PM CDT [facility] Blood BLOOD SPECIMEN / Unknown 08/25/2017 3:50 PM CDT 08/25/2017 3:48 PM CDT Narrative [facility] - 08/25/2017 4:15 PM CDT Note: Diagnosis of myocardial infarction requires symptoms of ischemia or EKG changes of ischemia and Troponin I >99th of normal (0.05 ng/mL). Troponin should be drawn on initial assessment and 3-6 hours later as clinically indicated. Any condition resulting in myocardial cell damage can increase cardiac troponin levels. In addition to myocardial infarction, these include but are not limited to congestive heart failure (CHF), arrhythmia, myocarditis, and non-cardiac related causes such as pulmonary embolism, renal failure and sepsis. Georgiana Kyle UNDERGROUND HEAVY EQUIPMENT OPERATOR-PILLOWCASE SEWER LAB - CHEMISTRY ORDERABLES Performing Organization Address [facility] Co de Phone Number [facility] [address] [place] [address] * XR CHEST 1VW PORTABLE (08/25/2017 3:01 PM CDT) Anatomical Region Laterality Modality Chest Radiographic Mireya ging 08/25/2017 3:06 PM CDT Impressions 08/25/2017 3:07 PM CDT Pulmonary vasculature appears mildly congested. Narrative 08/25/2017 3:07 PM CDT PORTABLE AP CHEST INDICATION: Unspecified asthma, uncomplicated short of breath DATE AND TIME OF EXAMINATION: ??08/25/2017 3:06 PM COMPARISON: December 29, 2016 FINDINGS: Single AP view of the chest shows pulmonary vasculature appears mildly congested. No pneumothorax or significant pleural effusion is seen. Cardiac size is stable. There is calcification at the thoracic aorta. Procedure Note Kelly Cline MD - 08/25/2017 PORTABLE AP CHEST INDICATION: Unspecified asthma, uncomplicated short of breath DATE AND TIME OF EXAMINATION: 08/25/2017 3:06 PM COMPARISON: December 29, 2016 FINDINGS: Single AP view of the chest shows pulmonary vasculature appears mildly congested. No pneumothorax or significant pleural effusion is seen. Cardiac size is stable. There is calcification at the thoracic aorta. IMPRESSION Pulmonary vasculature appears mildly congested. Shira Love DO DIAGNOSTIC IMAGING O RDERABLES * EKG 12-LEAD (08/25/2017 2:57 PM CDT) Ventricular Rate 79 BPM [facility] Atrial Rate 79 BPM [facility] P-R Interval 190 ms [facility] QRS Duration ms 114 ms [facility] Q-T Interval ms 440 ms [facility] QTC Calculation (Bezet) 504 ms [facility] Calculated P Boyers 76 degrees [facility] Calculated R Boyers -31 degrees [facility] Calculated T Boyers 54 degrees [facility] Interpretation EKG Normal sinus rhythm Left axis deviation Prolonged QT Abnormal ECG Confirmed by KENY JACKSON MD ([id number]) on 08/26/2017 7:56:02 PM [facility] 08/25/2017 2:57 PM CDT 08/26/2017 7:56 PM CDT Shira Love DO ECG ORDERABLES [facility] * (ABNORMAL) GLUCOSE - POINT OF CARE (08/25/2017 11:43 AM CDT) Glucose WB/POC 128(H) 70 - 106 mg/dL 08/25/2017 1:10 PM CDT [facility] Specimen Type CAPILLARY BLOOD 08/25/2017 1:10 PM CDT [facility] Blood BLOOD SPECIMEN / Unknown 08/25/2017 11:43 AM CDT 08/25/2017 1:10 PM CDT Shira Love DO LAB - POINT OF CARE ORDERABLES [facility] [address] [place] [address] * GROSS + MICRO EXAM (STL) (08/25/2017 9:27 AM CDT) Case Report Surgical Pathology Report ? Case: [id number] ? Authorizing Provider: ??Shira Love, DO ? Collected: ? 08/25/2017 09:27 AM ? Ordering Location: ? [facility] ? Received: ?08/25/2017 11:41 AM ? Pathologist: ? Femi Carbajal MD ? Specimen: ?Breast Mass, left breast mass with needle localization ? 08/31/2017 2:00 PM CDT [facility] Addendum 1 The results of kory vale prognostic factors by immunohistochemical stains using computer assisted image analysis are as follows(performed on block A2): ER: Positive (96.6 %, intensity: strong) MA: Positive (22.5 %, intensity: moderate) Her-2-osmin: Not over-expressed (score 1+) Ki-67: Borderline proliferation (19.4 %) 08/31/2017 2:00 PM CDT [facility] Addendum electronically signed by Dov Hutchison MD on 08/31/2017 at 2:00 PM Final Diagnosis 1. Left breast mass, lumpectomy: [...] -- Provisional TNM stage T1c, NX, MX AB/ns 08/31/2017 2:00 PM CDT [facility] Gross Description The specimen is received fixed in formalin in one container labeled with the patient's name, Perla Leon, and left breast mass with needle localization and consists of a 35 gm roughly oval shaped portion of lobular, yellow-orange, fibrofatty breast tissue with a short suture at superior and long suture at lateral as per the op note in the patient's clinical history. The specimen measures 7.4 cm from medial to lateral x 4.8 cm from superior to inferior x 2.5 cm from anterior to posterior. A mcdaniel metallic guidewire protrudes from the central anterior aspect of the specimen. The specimen is inked as follows: Superior - red, inferior - blue, medial - yellow, lateral - orange, anterior - green, posterior - black. The specimen is sagitally serially sectioned from lateral to medial revealing centrally located, firm, white-ayala mass measuring 0.9 x 0.8 x 0.7 cm. The mass comes to within 0.5 cm of the anterior margin, 0.6 cm of the posterior margin, 1.6 cm of the superior margin, 1.5 cm of the inferior margin, 2.8 cm of the lateral margin, and 2.4 cm of the medial margin. The remaining cut surface demonstrates yellow-orange, fibrofatty breast tissue. Contract Attorney sections are submitted as follows: A1 through A3 - Mass submitted entirely in relationship to anterior and posterior margins A4 - Superior margin in closest proximity to mass, perpendicular section A5 - Inferior margin in closest proximity to mass, perpendicular section A6 - Medial margin, shaved A7 - Lateral margin, shaved. 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 Adjacent to the invasive tumor focus, there is papillary apocrine metaplasia. The invasive tumor shows virtually no tubule formation, grade 2-3 nuclei and low to moderate mitotic activity for an overall grade 2 carcinoma. The tumor is about 0.4 mm from the black-inked margin. No vascular or neural invasion is seen. There are microcalcifications associated with non-neoplastic tissue. AB/ns 08/31/2017 2:00 PM [facility] Disclaimer All histochemical and/or immunohistochemical results are interpreted with controls that demonstrate appropriate staining reactions before reporting results. Note on use of immunocytochemistry reagents: This test was developed and its performance characteristic determined by [facility], Department of Laboratory Medicine. It has not been cleared or approved by the U.S. Food and Drug Administration (FDA). The FDA has determined that such clearance or approval is not necessary. The test is used for clinical purpose. It should not be regarded as investigational or for research. This laboratory is certified to perform high complexity testing. 08/31/2017 2:00 PM [facility] Synoptic Report INVASIVE CARCINOMA OF THE BREAST ??(Breast Invasive - All Specimens) SPECIMEN ?? Procedure: ?Excision (less than total mastectomy) ?? Specimen Laterality: ?Left TUMOR ?? Tumor Site: Invasive Carcinoma: ?Not specified ?? Histologic Type: ?Invasive carcinoma of no special type (ductal, not otherwise specified) ?? Histologic Grade (Migue Histologic Score): ? Glandular (Acinar) / Tubular Differentiation: ?Score 3 ? Nuclear Pleomorphism: ?Score 3 ? Mitotic Rate: ?Score 1 (<=3 mitoses per mm2) ? Overall Grade: ?Grade 2 (scores of 6 or 7) ?? Tumor Size: ?Size of largest invasive focus cannot be determined: 1.1 ?? Tumor Focality: ?Single focus of invasive carcinoma ?? Ductal Carcinoma In Situ (DCIS): ?DCIS is present in specimen ? : ?Negative for extensive intraductal component (EIC) ? Size (Extent) of DCIS: ?Estimated size of DCIS greatest dimension in Millimeters (mm) is at least: 3 Millimeters (mm) ? Number of Blocks with DCIS: ?2 ? Number of Blocks Examined: ?7 ? Architectural Patterns: ?Solid ? Nuclear Grade: ?Grade II (intermediate) ?? Lobular Carcinoma In Situ (LCIS): ?No LCIS in specimen ? Lymphovascular Invasion: ?Not identified ? Dermal Lymphovascular Invasion: ?No skin present ? Microcalcifications: ?Present in non-neoplastic tissue ? Treatment Effect: ?No known presurgical therapy MARGINS ?? Invasive Carcinoma Margins: ?Uninvolved by invasive carcinoma ? Distance from Anterior Margin in Millimeters (mm): ?5 Millimeters (mm) ? Distance from Posterior Margin in Millimeters (mm): ?4 Millimeters (mm) ? Distance from Superior Margin in Millimeters (mm): ?16 Millimeters (mm) ? Distance from Inferior Margin in Millimeters (mm): ?15 Millimeters (mm) ? Distance from Medial Margin in Millimeters (mm): ?24 Millimeters (mm) ? Distance from Lateral Margin in Millimeters (mm): ?28 Millimeters (mm) ? Distance from Closest Margin in Millimeters (mm): ?4 Millimeters (mm) ? Closest Margin: ?Posterior ?? DCIS Margins: ?Uninvolved by DCIS ? Distance of DCIS from Closest Margin in Millimeters (mm): ?4 Millimeters (mm) ? Closest Margin: ?Posterior LYMPH NODES ?? Regional Lymph Nodes: ?No lymph nodes submitted or found PATHOLOGIC STAGE CLASSIFICATION (pTNM, AJCC 8th Edition) ?? Primary Tumor (Invasive Carcinoma) (pT): ?pT1c ? Category (pN): ?pNX 08/31/2017 2:00 PM CDT [facility] Embedded Images 08/31/2017 2:00 PM CDT [facility] Pathology/Cytolo gy SPECIMEN FROM BREAST OBTAINED BY INCISIONAL BIOPSY OF BREAST MASS / Unknown 08/25/2017 9:27 AM CDT 08/25/2017 11:41 AM CDT Shira Love DO LAB - PATHOLOGY/CYTO LOGY ORDERABLES Performing Organization Address [facility] Co de Phone Number [facility] [address] [place] [address] * (ABNORMAL) GLUCOSE - POINT OF CARE (08/25/2017 7:22 AM CDT) Glucose WB/POC 124(H) 70 - 106 mg/dL 08/25/2017 8:23 AM CDT [facility] Specimen Type CAPILLARY BLOOD 08/25/2017 8:23 AM CDT [facility] Blood BLOOD SPECIMEN / Unknown 08/25/2017 7:22 AM CDT 08/25/2017 8:23 AM CDT Shira Love DO LAB - POINT OF CARE ORDERABLES Performing Organization Address [facility] de Phone Number [facility] [id number] [place] [phone] * (ABNORMAL) BASIC METABOLIC PANEL (CALCIUM TOTAL) (08/25/2017 7:17 AM CDT) Glucose 122(H) 74 - 106 mg/dL 08/25/2017 7:44 AM CDT [facility] Sodium 142 136 - 145 mmol/L 08/25/2017 7:44 AM CDT [facility] Potassium 2.9(L) 3.5 - 5.1 mmol/L 08/25/2017 7:44 AM CDT [facility] Chloride 105 98 - 107 mmol/L 08/25/2017 7:44 AM CDT [facility] CO2 29 22 - 31 mmol/L 08/25/2017 7:44 AM CDT [facility] Calcium 9.8 8.5 - 10.1 mg/dL 08/25/2017 7:44 AM CDT [facility] Anion Gap 8 8 - 16 mmol/L 08/25/2017 7:44 AM CDT [facility] BUN 21 7 - 21 mg/dL 08/25/2017 7:44 AM CDT [facility] Creatinine 0.80 0.50 - 1.30 mg/dL 08/25/2017 7:44 AM CDT [facility] eGFR by MDRD >60 mL/min/1.7 3m2 08/25/2017 7:44 AM CDT [facility] eGFR by MDRD >60 mL/min/1.7 3m2 08/25/2017 7:44 AM CDT [facility] Blood BLOOD SPECIMEN / Unknown Venipuncture / Unknown 08/25/2017 7:17 AM CDT 08/25/2017 7:25 AM CDT Nadja Valencia DO LAB - CHEMISTRY ROWAN QUIROZ [facility] [address] [place] [address] * (ABNORMAL) CBC W/O DIFFERENTIAL (08/25/2017 7:17 AM CDT) WBC 6.3 4.4 - 10.7 x10E9/L 08/25/2017 7:29 AM CDT [facility] RBC 5.18 3.80 - 5.20 x10E12/L 08/25/2017 7:29 AM CDT [facility] Hemoglobin 11.6(L) 12.0 - 15.6 gm/dL 08/25/2017 7:29 AM CDT [facility] Hematocrit 38.7 35.9 - 45.5 % 08/25/2017 7:29 AM CDT [facility] MCV 74.7(L) 80.7 - 98.3 fl 08/25/2017 7:29 AM CDT [facility] MCH 22.4(L) 26.7 - 34.0 pg 08/25/2017 7:29 AM CDT [facility] MCHC 30.0(L) 30.8 - 35.9 gm/dL 08/25/2017 7:29 AM CDT [facility] Platelet Count 388 153 - 416 x10E9/L 08/25/2017 7:29 AM CDT [facility] RDW-CV 20.3(H) 12.1 - 14.9 % 08/25/2017 7:29 AM CDT [facility] MPV 10.2 9.4 - 12.9 fl 08/25/2017 7:29 AM CDT [facility] Blood BLOOD SPECIMEN / Unknown Venipuncture / Unknown 08/25/2017 7:17 AM CDT 08/25/2017 7:25 AM CDT Nadja Valencia DO LAB - HEMATOLOGY ORD ERABLES [facility] [address] [place] [address] documented in this encounter Visit Diagnoses Not on filedocumented in this encounter Administered Medications Inactive Administered Medications - up to 3 most recent administrations Medication Order MAR Action Action Date Dose Rate Site *Hold/Avoid Medication EVERY 12 HOURS ( and ), 730 doses, First dose on Fri08/26/17 at 0800, Last dose on Fri08/25/18 at 2000, Please place medication(s) named below on MAR Hold. See Tip Sheet for instructions. 0.9% NaCl injection 1-10 mL 1-10 mL, Intracatheter, PRN, Other, peripheral line flush, Starting on Fri08/25/17 at 2028, Until Fri08/26/17 at 1234, Flush peripheral IV catheter with 1-10 mL of normal saline before and after medications and prn to clear blood from the line or to verify patency. 0.9% NaCl injection 3 mL 3 mL, Intracatheter, EVERY 8 HOURS, 1095 doses, First dose on Fri08/25/17 at 2200, Last dose on Fri08/25/18 at 1400, Flush peripheral IV catheter with 3 mL of normal saline every 8 hours. $ Given 08/25/2017 10:27 PM CDT 3 mL acetaminophen (TYLENOL) tablet 1,000 mg 1,000 mg, Oral, PRE-OP ONCE, 1 dose, On Fri08/25/17 at 0705, Pre-op $ Given 08/25/2017 7:17 AM CDT 1,000 mg acetaminophen (TYLENOL) tablet 650 mg 650 mg, Oral, EVERY 4 HOURS PRN, Fever, Mild Pain, Headache, Starting on Fri08/25/17 at 2029, Until Fri08/26/17 at 1234 $ Given 08/26/2017 9:27 AM CDT 650 mg albuterol (PROVENTIL;VENTOLIN) (5 MG/ML) 0.5% nebulizer solution 2.5 mg 2.5 mg, Inhalation, EVERY 6 HOURS PRN, Shortness of Breath, Wheezing, Starting on Fri08/25/17 at 2345, Until Fri08/26/17 at 1234, Dilute prior to administration via nebulization. $ Given 08/26/2017 2:10 AM CDT 2.5 mg albuterol-ipratropium (DUO-NEB) nebulizer solution 3 mL 3 mL, Inhalation, EVERY 4 HOURS PRN, Shortness of Breath, Wheezing, Starting on Fri08/25/17 at 1415, Until Fri08/25/17 at 1758, For wheezing. Notify anesthesia immediately., PACU $ Given 08/25/2017 2:10 PM CDT 3 mL artificial tears ophthalmic solution 1 drop 1 drop, Each Eye, EVERY 4 HOURS PRN, Dry Eyes, Starting on Fri08/25/17 at 2030, Until Fri08/26/17 at 1234 $ Given 08/25/2017 10:24 PM CDT 1 drop aspirin (ASPIRIN) chew tablet 81 mg 81 mg, Oral, DAILY, 365 doses, First dose on Fri08/26/17 at 0900, Last dose on Fri08/25/18 at 0900 $ Given 08/26/2017 8:25 AM CDT 81 mg atorvastatin (LIPITOR) tablet 40 mg 40 mg, Oral, AT BEDTIME, First dose on Fri08/25/17 at 2115, Until Discontinued $ Given 08/25/2017 9:16 PM CDT 40 mg benzonatate (TESSALON) capsule 100 mg 100 mg, Oral, 3 TIMES DAILY PRN, Cough, Starting on Fri08/25/17 at 2346, Until Fri08/26/17 at 1234 bupivacaine 0.5% - EPINEPHrine 1:200,000 (PF) injection PRN, Starting on Fri08/25/17 at 1059, Until Fri08/25/17 at 1124, Intra-op $ Given 08/25/2017 10:59 AM CDT 30 mL Operative Site clopidogrel (plaVIX) tablet 75 mg 75 mg, Oral, AT BEDTIME, 365 doses, First dose on Fri08/25/17 at 2115, Last dose on Fri08/24/18 at 2100 $ Given 08/25/2017 9:16 PM CDT 75 mg dextrose IV 12.5-25 g 12.5-25 g (25-50 mL), Intravenous, PRN, Bedside Glucose less than 70 mg/dL -If NOT able to eat and/or NPO and with IV Access, Starting on Fri08/25/17 at 2106, Until Fri08/26/17 at 1234, If NOT able to eat and/or NPO and with IV Access: For Bedside Glucose 50-69 mg/dL give 25 mls D50W IVP STAT For Bedside glucose 50 mg/dL or LESS verify with a second Bedside Glucose (from a different site) and give 50 mls D50W IVP STAT Re-check and Re-treat blood glucose EVERY 10-25 minutes until blood glucose GREATER than or equal to 80 mg/dl. NOTIFY PROVIDER OF HYPOGLYCEMIC EVENT. flecainide (TAMBOCOR) tablet 50 mg 50 mg, Oral, 2 TIMES DAILY, First dose on Fri08/26/17 at 0900, Until Discontinued $ Given 08/26/2017 8:24 AM CDT 50 mg furosemide (LASIX) tablet 40 mg 40 mg, Oral, DAILY, 365 doses, First dose on Fri08/26/17 at 0900, Last dose on Fri08/25/18 at 0900 $ Given 08/26/2017 8:24 AM CDT 40 mg glucagon (GLUCAGEN) injection 1 mg 1 mg, Intramuscular, PRN, Bedside Glucose less than 70 mg/dL - If NOT able to eat and/or NPO and withOUT IV Access, Starting on Fri08/25/17 at 2106, Until Fri08/26/17 at 1234, If NOT able to eat and/or NPO and NO IV Access: For Bedside glucose 50-69 mg/dL Give 1 mg IM or SQ For Bedside Glucose LESS than 50 mg/dl verify with a second bedside glucose [...] and discard unused portion glucose (Diabetic Use) oral gel Oral, PRN, Other, Bedside Glucose less than 70 mg/dL -If able to eat and does not have swallowing difficulties, Starting on Fri08/25/17 at 2106, Until Fri08/26/17 at 1234, If able to eat and does not have swallowing difficulties: For Bedside Glucose 50 - 69 mg/dL Give 15 grams of oral carbohydrates - 1 glucose gel (see MAR) If patient refuses glucose gel, then offer: - 4 ounces of fruit juice OR - 4 ounces non-diet soda OR - 8 ounces of fat-free milk For Bedside Glucose LESS than 50 mg/dL verify with a second Bedside Glucose [...] 80 mg/dl. NOTIFY PROVIDER OF HYPOGLYCEMIC EVENT. insulin aspart (NovoLOG) pen 0-6 Units 0-6 Units, Subcutaneous, 3 TIMES DAILY WITH MEALS, 1095 doses, First dose on Fri08/26/17 at 0800, Last dose on Fri08/25/18 at 1800, Low Dose: Correction Insulin BG (mg/dL) Corrective Action LESS than 70: follow Hypoglycemic guidelines, 70-180: NO Correction insulin, 181-220: GIVE 2 units of insulin, 221-260: GIVE 3 units of insulin, 261-300: GIVE 4 units of insulin, 301-350: GIVE 5 units of insulin and notify physician, Greater than 350: GIVE 6 units of insulin and notify physician. If the patient is NPO: DO NOT HOLD correction insulin If patient is eating meals and has orders for Mealtime insulin, combine and give at the same time. insulin detemir (LEVEMIR) pen 10 Units 10 Units, Subcutaneous, AT BEDTIME, 365 doses, First dose on Fri08/25/17 at 2145, Last dose on Fri08/24/18 at 2100, ............. DO NOT HOLD even if patient is NPO Consider calling physician for dose reduction if patient is made NPO. Body mass index is 35.28 kg/(m^2). . WASTE DISPOSAL INSTRUCTIONS: Black Bin Disposal required. $ Given 08/25/2017 10:25 PM CDT 10 Units Abdominal Tissue insulin detemir (LEVEMIR) pen 6 Units 6 Units, Subcutaneous, AT BEDTIME, 364 doses, First dose (after last modification) on Fri08/26/17 at 2100, Last dose on Fri08/24/18 at 2100, ............. DO NOT HOLD even if patient is NPO Consider calling physician for dose reduction if patient is made NPO. Body mass index is 35.28 kg/(m^2). . WASTE DISPOSAL INSTRUCTIONS: Black Bin Disposal required. lactated ringers infusion at 20 mL/hr, Intravenous, PRE-OP CONTINUOUS, Starting on Fri08/25/17 at 0715, Until Fri08/25/17 at 1758, Pre-op $ New Bag/Syringe 08/25/2017 7:17 AM CDT 20 mL/hr lidocaine buffered 1 % injection 0.5 mL 0.5 mL, Infiltration, PRE-OP MULTIPLE, 3 doses, Starting on Fri08/25/17 at 0705, Until Fri08/25/17 at 1758, May be used (0.5 ml locally to anesthetize prior to insertion)., Pre-op $ Given 08/25/2017 7:17 AM CDT 0.5 mL pantoprazole EC (PROTONIX) tablet 40 mg 40 mg, Oral, DAILY, First dose on Fri08/26/17 at 0900, Until Discontinued, Do not crush, chew, or cut in half. $ Given 08/26/2017 8:25 AM CDT 40 mg potassium chloride (KLOR-CON M) tablet 10 mEq 10 mEq, Oral, DAILY WITH BREAKFAST, 365 doses, First dose on Fri08/26/17 at 0800, Last dose on Fri08/25/18 at 0800, May cut in half but do not crush or chew. $ Given 08/26/2017 8:26 AM CDT 10 mEq potassium chloride (KLOR-CON M) tablet 40 mEq 40 mEq, Oral, ONCE, 1 dose, On Fri08/26/17 at 0630, Do not crush or chew. $ Given 08/26/2017 8:25 AM CDT 40 mEq psyllium (METAMUCIL) powder 1 packet 1 packet, Oral, 3 TIMES DAILY, First dose on Fri08/25/17 at 2115, Until Discontinued $ Given 08/26/2017 8:23 AM CDT 1 packet $ Given 08/25/2017 10:24 PM CDT 1 packet saline nasal spray (OCEAN; BABY AYR) 0.65 % nasal spray 1 spray 1 spray, Each Nostril, PRN, Dry Nose, Starting on Fri08/25/17 at 2030, Until Fri08/26/17 at 1234, No limitation on use. simethicone (MYLICON) chew tablet 80 mg 80 mg, Oral, 4 TIMES DAILY PRN, Gas Pain, Starting on Fri08/25/17 at 2341, Until Fri08/26/17 at 1234 verapamil CR (ISOPTIN-SR) tablet 240 mg 240 mg, Oral, DAILY, 365 doses, First dose on Fri08/26/17 at 0900, Last dose on Fri08/25/18 at 0900, Hold for BP<110/60 Do not crush or chew. $ Given 08/26/2017 8:24 AM CDT 240 mg documented in this encounter Active and Recently Administered Medications Times are shown in CDT. Scheduled Medication Order 08/24/2017 08/25/2017 08/26/2017 *Hold/Avoid Medication EVERY 12 HOURS (08 and 20), 730 doses, First dose on Fri08/26/17 at 0800, Last dose on Fri08/25/18 at 2000, Please place medication(s) named below on MAR Hold. See Tip Sheet for instructions. 0826 (*Reviewed - Provider: Nevin Moreno) 0.9% NaCl injection 3 mL(Linked Group 1) 3 mL, Intracatheter, EVERY 8 HOURS, 1095 doses, First dose on Fri08/25/17 at 2200, Last dose on Fri08/25/18 at 1400, Flush peripheral IV catheter with 3 mL of normal saline every 8 hours. 2227 ($ Given - Provider: Chelsea Gordon RN) 0643 (Not Administered - Provider: Chelsea Gordon RN - Reason: Patient sleeping) acetaminophen (TYLENOL) tablet 1,000 mg (COMPLETED) 1,000 mg, Oral, PRE-OP ONCE, 1 dose, On Fri08/25/17 at 0705, Pre-op 0717 ($ Given - Provider: Aleisha Benitez, DES) amitriptyline (ELAVIL) tablet 50 mg 50 mg, Oral, AT BEDTIME, 365 doses, First dose on Fri08/26/17 at 2100, Last dose on Fri08/25/18 at 2100 aspirin (ASPIRIN) chew tablet 81 mg 81 mg, Oral, DAILY, 365 doses, First dose on Fri08/26/17 at 0900, Last dose on Fri08/25/18 at 0900 0825 ($ Given - Prov ider: Nevin Moreno) atorvastatin (LIPITOR) tablet 40 mg 40 mg, Oral, AT BEDTIME, First dose on Fri08/25/17 at 2115, Until Discontinued 2115 ($ Given - Provider: Chelsea Gordon RN) ceFAZolin (ANCEF) syringe 2,000 mg (CANCELED) 2,000 mg (2 g), Intravenous, PRE-OP MULTIPLE, Starting on Fri08/25/17 at 0705, Until Fri08/25/17 at 1758, Administer 30 minutes prior to surgical incision. Repeat dose in 3 hours if surgical incision not closed. Administer over 3-5 minutes., Indication for anti-infective therapy: Surgical prophylaxis, Site of anti-infective therapy: Wound, Pre-op 1033 ($ Given - Provider: Russell Keenan APRN-CONVICT GUARD) clopidogrel (plaVIX) tablet 75 mg (CANCELED) 75 mg, Oral, AT BEDTIME, 365 doses, First dose on Fri08/25/17 at 2115, Last dose on Fri08/24/18 at 2100 2115 ($ Given - Provider: Chelsea Gordon RN) flecainide (TAMBOCOR) tablet 50 mg 50 mg, Oral, 2 TIMES DAILY, First dose on Fri08/26/17 at 0900, Until Discontinued 08 ($ Given - Prov ider: Nevin Moreno) furosemide (LASIX) tablet 40 mg 40 mg, Oral, DAILY, 365 doses, First dose on Fri08/26/17 at 0900, Last dose on Fri08/25/18 at 0900 0824 ($ Given - Prov ider: Nevin Moreno) insulin aspart (NovoLOG) pen 0-6 Units 0-6 Units, Subcutaneous, 3 TIMES DAILY WITH MEALS, 1095 doses, First dose on Fri08/26/17 at 0800, Last dose on Fri08/25/18 at 1800, Low Dose: Correction Insulin BG (mg/dL) Corrective Action LESS than 70: follow Hypoglycemic guidelines, 70-180: NO Correction insulin, 181-220: GIVE 2 units of insulin, 221-260: GIVE 3 units of insulin, 261-300: GIVE 4 units of insulin, 301-350: GIVE 5 units of insulin and notify physician, Greater than 350: GIVE 6 units of insulin and notify physician. If the patient is NPO: DO NOT HOLD correction insulin If patient is eating meals and has orders for Mealtime insulin, combine and give at the same time. 08 (Not Administer ed - Provider: Nevin Moreno - Reason: Per Administration Instructions) insulin detemir (LEVEMIR) pen 10 Units (CANCELED) 10 Units, Subcutaneous, AT BEDTIME, 365 doses, First dose on Fri08/25/17 at 2145, Last dose on Fri08/24/18 at 2100, ............. DO NOT HOLD even if patient is NPO Consider calling physician for dose reduction if patient is made NPO. Body mass index is 35.28 kg/(m^2). . WASTE DISPOSAL INSTRUCTIONS: Black Bin Disposal required. 2224 ($ Given - Provider: Chelsea Gordon RN) insulin detemir (LEVEMIR) pen 6 Units 6 Units, Subcutaneous, AT BEDTIME, 364 doses, First dose (after last modification) on Fri08/26/17 at 2100, Last dose on Fri08/24/18 at 2100, ............. DO NOT HOLD even if patient is NPO Consider calling physician for dose reduction if patient is made NPO. Body mass index is 35.28 kg/(m^2). . WASTE DISPOSAL INSTRUCTIONS: Black Bin Disposal required. latanoprost (XALATAN) 0.005 % ophthalmic solution 1 drop 1 drop, Each Eye, AT BEDTIME, 365 doses, First dose on Fri08/25/17 at 2115, Last dose on Fri08/24/18 at 2100, Allow at least 5 minutes between administration of multiple ophthalmic products Once opened, store at room temperature 2300 (Not Administered - Provider: Chelsea Gordon RN - Reason: Medication not available) lidocaine buffered 1 % injection 0.5 mL (CANCELED) 0.5 mL, Infiltration, PRE-OP MULTIPLE, 3 doses, Starting on Fri08/25/17 at 0705, Until Fri08/25/17 at 1758, May be used (0.5 ml locally to anesthetize prior to insertion)., Pre-op 0717 ($ Given - Provider: Aleisha Benitez RN) pantoprazole EC (PROTONIX) tablet 40 mg 40 mg, Oral, DAILY, First dose on Fri08/26/17 at 0900, Until Discontinued, Do not crush, chew, or cut in half. 0825 ($ Given - Prov ider: Nevin Moreno) potassium chloride (KLOR-CON M) tablet 10 mEq 10 mEq, Oral, DAILY WITH BREAKFAST, 365 doses, First dose on Fri08/26/17 at 0800, Last dose on Fri08/25/18 at 0800, May cut in half but do not crush or chew. 0826 ($ Given - Prov ider: Nevin Moreno) potassium chloride (KLOR-CON M) tablet 40 mEq (COMPLETED) 40 mEq, Oral, ONCE, 1 dose, On Fri08/26/17 at 0630, Do not crush or chew. 0825 ($ Given - Prov ider: Nevin Moreno) psyllium (METAMUCIL) powder 1 packet 1 packet, Oral, 3 TIMES DAILY, First dose on Fri08/25/17 at 2115, Until Discontinued 2224 ($ Given - Provider: Chelsea Gordon RN) 0823 ($ Given - Provider: Nevin Moreno) verapamil CR (ISOPTIN-SR) tablet 240 mg 240 mg, Oral, DAILY, 365 doses, First dose on Fri08/26/17 at 0900, Last dose on Fri08/25/18 at 0900, Hold for BP<110/60 Do not crush or chew. 0824 ($ Given - Prov ider: Nevin Moreno) Continuous Medication Order 08/24/2017 08/25/2017 08/26/2017 lactated ringers infusion (CANCELED) at 20 mL/hr, Intravenous, PRE-OP CONTINUOUS, Starting on Fri08/25/17 at 0715, Until Fri08/25/17 at 1758, Pre-op 0717 ($ New Bag/Syringe - Provider: Aleisha Benitez RN)1128 (Anesthesia Volume Adjustment - Provider: Russell Keenan APRN-CONVICT GUARD) PRN Medication Order 08/24/2017 08/25/2017 08/26/2017 0.9% NaCl injection 1-10 mL(Linked Group 1) 1-10 mL, Intracatheter, PRN, Other, peripheral line flush, Starting on Fri08/25/17 at 2028, Until Fri08/26/17 at 1234, Flush peripheral IV catheter with 1-10 mL of normal saline before and after medications and prn to clear blood from the line or to verify patency. acetaminophen (TYLENOL) tablet 650 mg 650 mg, Oral, EVERY 4 HOURS PRN, Fever, Mild Pain, Headache, Starting on Fri08/25/17 at 2029, Until Fri08/26/17 at 1234 0927 ($ Given - Provider: Nevin Moreno) albuterol (PROVENTIL;VENTOLIN) (5 MG/ML) 0.5% nebulizer solution 2.5 mg 2.5 mg, Inhalation, EVERY 6 HOURS PRN, Shortness of Breath, Wheezing, Starting on Fri08/25/17 at 2345, Until Fri08/26/17 at 1234, Dilute prior to administration via nebulization. 0210 ($ Given - Provider: Brandon Ravi RCP) albuterol-ipratropium (DUO-NEB) nebulizer solution 3 mL (CANCELED) 3 mL, Inhalation, EVERY 4 HOURS PRN, Shortness of Breath, Wheezing, Starting on Fri08/25/17 at 1415, Until Fri08/25/17 at 1758, For wheezing. Notify anesthesia immediately., PACU 1410 ($ Given - Provider: Rosa Downs RN) artificial tears ophthalmic solution 1 drop 1 drop, Each Eye, EVERY 4 HOURS PRN, Dry Eyes, Starting on Fri08/25/17 at 2030, Until Fri08/26/17 at 1234 2224 ($ Given - Provider: Chelsea Gordon, DES) benzonatate (TESSALON) capsule 100 mg 100 mg, Oral, 3 TIMES DAILY PRN, Cough, Starting on Fri08/25/17 at 2346, Until Fri08/26/17 at 1234 bupivacaine 0.5% - EPINEPHrine 1:200,000 (PF) injection (CANCELED) PRN, Starting on Fri08/25/17 at 1059, Until Fri08/25/17 at 1124, Intra-op 1059 ($ Given - Provider: Shira Love DO) dextrose IV 12.5-25 g 12.5-25 g (25-50 mL), Intravenous, PRN, Bedside Glucose less than 70 mg/dL -If NOT able to eat and/or NPO and with IV Access, Starting on Fri08/25/17 at 2106, Until Fri08/26/17 at 1234, If NOT able to eat and/or NPO and with IV Access: For Bedside Glucose 50-69 mg/dL give 25 mls D50W IVP STAT For Bedside glucose 50 mg/dL or LESS verify with a second Bedside Glucose (from a different site) and give 50 mls D50W IVP STAT Re-check and Re-treat blood glucose EVERY 10-25 minutes until blood glucose GREATER than or equal to 80 mg/dl. NOTIFY PROVIDER OF HYPOGLYCEMIC EVENT. glucagon (GLUCAGEN) injection 1 mg 1 mg, Intramuscular, PRN, Bedside Glucose less than 70 mg/dL - If NOT able to eat and/or NPO and withOUT IV Access, Starting on Fri08/25/17 at 2106, Until Fri08/26/17 at 1234, If NOT able to eat and/or NPO and NO IV Access: For Bedside glucose 50-69 mg/dL Give 1 mg IM or SQ For Bedside Glucose LESS than 50 mg/dl verify with a second bedside glucose [...] and discard unused portion glucose (Diabetic Use) oral gel Oral, PRN, Other, Bedside Glucose less than 70 mg/dL -If able to eat and does not have swallowing difficulties, Starting on Fri08/25/17 at 2106, Until Fri08/26/17 at 1234, If able to eat and does not have swallowing difficulties: For Bedside Glucose 50 - 69 mg/dL Give 15 grams of oral carbohydrates - 1 glucose gel (see MAR) If patient refuses glucose gel, then offer: - 4 ounces of fruit juice OR - 4 ounces non-diet soda OR - 8 ounces of fat-free milk For Bedside Glucose LESS than 50 mg/dL verify with a second Bedside Glucose [...] 80 mg/dl. NOTIFY PROVIDER OF HYPOGLYCEMIC EVENT. saline nasal spray (OCEAN; BABY AYR) 0.65 % nasal spray 1 spray 1 spray, Each Nostril, PRN, Dry Nose, Starting on Fri08/25/17 at 2030, Until Fri08/26/17 at 1234, No limitation on use. simethicone (MYLICON) chew tablet 80 mg 80 mg, Oral, 4 TIMES DAILY PRN, Gas Pain, Starting on Fri08/25/17 at 2341, Until Fri08/26/17 at 1234 Linked Groups Order Group 1: SALINE LOCK, INSERT AND MAINTAIN (CANCELED) Routine, CONTINUOUS, Starting on Fri08/25/17 at 2030, Until Specified, New collection And 0.9% NaCl injection 3 mLJump to med 3 mL, Intracatheter, EVERY 8 HOURS, 1095 doses, First dose on Fri08/25/17 at 2200, Last dose on Fri08/25/18 at 1400, Flush peripheral IV catheter with 3 mL of normal saline every 8 hours. And 0.9% NaCl injection 1-10 mLJump to med 1-10 mL, Intracatheter, PRN, Other, peripheral line flush, Starting on Fri08/25/17 at 2028, Until Fri08/26/17 at 1234, Flush peripheral IV catheter with 1-10 mL of normal saline before and after medications and prn to clear blood from the line or to verify patency. documented in this encounter Care Teams Protective Service Specialist Relationship Specialty Start Date End Date Etienne Florez MD Orthopedic Surgery 12/09/14 documented as of this encounter
--- OUTSIDE RECORDS SUMMARY | 2024-05-26 12:43 | XMS_ITS | Encounter Summary ---
Author Organization [facility] Address [address] [place] [address] Care Team Providers Care Transcription Coordinator Name Role Phone Etienne Florez MD Unavailable [phone] Reason for Visit * Reason Onset Date Comments MEDICATION REFILL 08/19/2017 Encounter Details Date Type Department Care Team (Late st Contact Info) Description 08/19/2017 Refill [facility] - Family Medicine [address] [place] [address] [address] [place] [address] Jarrell Garrison MD [facility] [address] [address] MEDICATION REFILL Social History Tobacco [...] < 140/90 Blood Pressure 127/52(2022 8:09 AM PROMOTIONS COORDINATOR) No Alisa Jaramillo HEMOGLOBIN A1C < 7.0 Result Component 5.4( 12:00 AM CDT) No Alisa Jaramillo documented as of this encounter Visit Diagnoses Not on filedocumented in this encounter Care Teams Transcription Coordinator Relationship Specialty Start Date End Date Etienne Florez MD Orthopedic Surgery 12/09/14 documented as of this encounter
--- OUTSIDE RECORDS SUMMARY | 2024-05-26 12:43 | XMS_ITS | Encounter Summary ---
Author Organization [facility] Address [address] [place] [address] Care Team Providers Care Typewriter Aligner Name Role Phone Etienne Florez MD Unavailable [phone] Reason for Visit * Reason Onset Date Comments MEDICATION REFILL 08/11/2017 Encounter Details Date Type Department Care Team (Late st Contact Info) Description 08/11/2017 Refill [facility] - Family Medicine [address] [place] [address] [address] [place] [address] Jarrell Garrison MD [facility] [address] [address] MEDICATION REFILL Social History Tobacco [...] encounter Miscellaneous Notes * Telephone Encounter - Michelle Khan - 08/11/2017 9:47 AM CDT Perla Leon is in need of Her Requested Prescriptions Pending Prescriptions Disp Refills ??? potassium chloride (KLOR-CON 10) 10 MEQ tablet 90 tablet 1 Sig: Take 1 tablet by mouth once daily The patient should only Take 4 tabs with breakfast please disregard the 1 tablet by mouth daily Person calling for the refill: Patient Last office visit 07/22/2017 Next Appointment scheduled: 08/19/2017 Last Refill for this medication 07/24/17 Does patient have any new allergies since [...] < 140/90 Blood Pressure 127/52(2022 8:09 AM BLOWER AND COMPRESSOR ASSEMBLER) No Alisa Jaramillo HEMOGLOBIN A1C < 7.0 Result Component 5.4( 12:00 AM CDT) No Alisa Jaramillo documented as of this encounter Visit Diagnoses Not on filedocumented in this encounter Care Teams Typewriter Aligner Relationship Specialty Start Date End Date Etienne Florez MD Orthopedic Surgery 12/09/14 documented as of this encounter
--- OUTSIDE RECORDS SUMMARY | 2024-05-26 12:43 | XMS_ITS | Encounter Summary ---
Author Organization [facility] Address [address] [place] [address] Care Team Providers Care Auto Roller Name Role Phone Etienne Florez MD Unavailable [phone] Enrique Gonzalez MD Unavailable [phone] Reason for Visit * Reason Onset Date Comments Medication Clarification 08/22/2017 Encounter Details Date Type Department Care Team (Late st Contact Info) Description 08/22/2017 Telephone [facility] - Family Medicine [address] [place] [address] [address] [place] [address] Jarrell Garrison MD [address] [facility] [address] [place] [address] Medication Clarification Social History Tobacco Use Types Packs/Day Years [...] Telephone Encounter - Eva Rutherford - 09/19/2017 2:18 PM CDT The patient states she takes 4 tablets daily with breakfast. She will need a new refill for 90 days. I have entered the refill request and routed to you to sign. * Telephone Encounter - Jarrell Garrison MD - 09/18/2017 9:08 AM CDT Is this issue clarified with patient ? * Telephone Encounter - Eva Rutherford - 09/12/2017 12:06 PM CDT Should the patient be taking 1 tablet by mouth daily or 4 tabs with breakfast? Do you want a 90 day supply? Please advise. Thank you. * Telephone Encounter - Jarrell Garrison MD - 09/11/2017 4:54 PM CDT Please resend prescription with correct dose and directions * Telephone Encounter - Eva Rutherford - 08/22/2017 3:37 PM CDT A prescription was filled on 08/19/17 for potassium chloride (KLOR-CON 10) 10 GUSTAVO tablet, Qty: 60. Directions: Take 1 tablet by mouth once daily The patient should only Take 4 tabs with breakfast please disregard the 1 tablet by mouth daily - Oral Message from pharmacy: The directions do not match the quantity on this prescription. If it is intended for a 90 day supply, please clarify both the DIRECTIONS and the QUANTITY. documented in this encounter Plan of Treatment Not on file documented as of this encounter Goals Goal Patient Goal Type Associated Problems Recent Progress Patient-Stated? Author Blood Pressure < 140/90 Blood Pressure 127/52(2022 8:09 AM CERTIFICATION TECHNICIAN) No Alisa Jaramillo HEMOGLOBIN A1C < 7.0 Result Component 5.4( 12:00 AM CDT) No Alisa Jaramillo documented as of this encounter Visit Diagnoses Not on filedocumented in this encounter Care Teams Auto Roller Relationship Specialty Start Date End Date Etienne Florez MD Orthopedic Surgery 12/09/14 [place] [id number] [address] Oncology 09/15/17 documented as of this encounter
--- OUTSIDE RECORDS SUMMARY | 2024-05-26 12:43 | XMS_ITS | Encounter Summary ---
Author Organization [facility] Address [address] [facility] [place] [address] Care Team Providers Care Waterworks Supervisor Name Role Phone Etienne Florez MD Unavailable [phone] Reason for Referral * Radiology Services (Routine) - Closed Specialty Diagnoses / Procedures Referred By Contac t Referred To Contact Diagnoses Abnormal finding on breast imaging Procedures [place] [address] [place] [id number] Referral ID Status Reason Start Date Expiration Date Visits Re quested Visits Authorized [id number] Closed 08/05/2017 02/01/2018 1 1 Reason for Visit * Auth/Cert Specialty Diagnoses / Procedures Referred By Contac t Referred To Contact Procedures EXCISION LESION/MASS BREAST Referral ID Status Reason Start Date Expiration Date Visits Re quested Visits Authorized [id number] 1 1 Encounter Details Date Type Department Care Team (Latest Contact Info) Description 08/25/2017 8:16 AM CDT - 08/25/2017 8:58 AM CDT Hospital Encounter [facility] - Ultrasound [address] [place] [address] [place] [address] [place] [address] Discharge Disposition: Home or Self [...] < 140/90 Blood Pressure 127/52(2022 8:09 AM TYPE BAR AND SEGMENT ASSEMBLER) No ClintAlisa HEMOGLOBIN A1C < 7.0 Result Component 5.4( 12:00 AM CDT) No Alisa Jaramillo documented as of this encounter Procedures Procedure Name Priority Date/Time Associated Diagnosis Comments US BREAST LEFT NEEDLE LOC Routine 08/25/2017 9:55 AM CDT Abnormal finding on breast imaging documented in this encounter Results * US BREAST LEFT [...] Visit Diagnoses Diagnosis Abnormal finding on breast imaging Other (abnormal) findings on radiological examination of breast documented in this encounter Administered Medications Inactive Administered Medications - up to 3 most recent administrations Medication Order MAR Action Action Date Dose Rate Site lidocaine buffered 1 % injection Infiltration, ONCE, 1 dose, On Fri08/25/17 at 1015 $ Given 08/25/2017 9:54 AM CDT 10 mg documented in this encounter Care Teams Waterworks Supervisor Relationship Specialty Start Date End Date Etienne Florez MD Orthopedic Surgery 12/09/14 documented as of this encounter
--- OUTSIDE RECORDS SUMMARY | 2024-05-26 12:43 | XMS_ITS | Encounter Summary ---
Author Organization [facility] Address [address] [place] [address] Care Team Providers Care Judicial Registrar Name Role Phone Etienne Florez MD Unavailable [phone] Reason for Referral * Radiology Services (Routine) - Closed Specialty Diagnoses / Procedures Referred By Contac t Referred To Contact Diagnoses Abnormal mammogram Procedures MAMMO DIAG DIRECT DIGITAL IMAGE UNIL LEFT [id number] Jarrell Garrison MD [address] [place] [address] Referral ID Status Reason Start Date Expiration Date Visits Re quested Visits Authorized [id number] Closed 07/07/2017 01/03/2018 1 1 Reason for Visit * Radiology Services (Routine) - Closed Specialty Diagnoses / Procedures Referred By Contac t Referred To Contact Diagnoses Abnormal mammogram Procedures MAMMO DIAG DIRECT DIGITAL IMAGE UNIL LEFT [id number] Jarrell Garrison MD [address] [place] [address] Referral ID Status Reason Start Date Expiration Date Visits Re quested Visits Authorized [id number] Closed 07/07/2017 01/03/2018 1 1 Encounter Details Date Type Department Care Team (Late st Contact Info) Description 07/30/2017 9:30 AM CDT - 07/30/2017 9:41 AM CDT Hospital Encounter [facility] Breast Care [address] [place] [address] Jarrell Garrison MD [address] [facility] [address] [place] [id number] Discharge Disposition: Home or Self Care Social [...] Progress Notes * Jarrell Garrison MD - 07/30/2017 9:41 AM CDT Follow up with surgery Advise patient documented in this encounter Plan of Treatment Not on file documented as of this encounter Goals Goal Patient Goal Type Associated Problems Recent Progress Patient-Stated? Author Blood Pressure < 140/90 Blood Pressure 127/52(2022 8:09 AM TRAIN OPERATOR) No Alisa Jaramillo HEMOGLOBIN A1C < 7.0 Result Component 5.4( 12:00 AM CDT) No Alisa Jaramillo documented as of this encounter Procedures Procedure Name Priority Date/Time Associated Diagnosis Comments MAMMO LEFT DIAGNOSTIC Routine 07/30/2017 10:10 AM CDT Abnormal mammogram documented in this encounter Results * (ABNORMAL) MAMMO DIAG DIRECT DIGITAL IMAGE UNIL LEFT [id number] (07/30/2017 10:10 AM CDT) Anatomical Region Laterality Modality Left Mammography 07/30/2017 10:1 4 AM CDT Narrative 07/30/2017 11:12 AM CDT DIGITAL UNILATERAL LEFT DIAGNOSTIC MAMMOGRAMS WITH CAD AND 3-D TOMOSYNTHESIS DATE: 07/30/2017 9:42 AM PREVIOUS EXAM DATE: Outside films 04/26/2016. INDICATION: Abnormal mammogram. TECHNIQUE: Bilateral craniocaudad (CC) and mediolateral oblique (MLO) views. Images were interpreted with the aid of CAD. 3-D tomosynthesis images were performed. TECHNOLOGIST: RT Raymond(R)(M) TISSUE DENSITY: Scattered fibroglandular elements. FINDINGS: A small spiculated distortion persists in [...] this patient. No axillary adenopathy is appreciated. ASSESSMENT: (BI-RADS category 4C) Suspicious abnormality. RECOMMENDATIONS: Surgical consultation. The above findings should be correlated with physical examination. A relatively nonspecific study should not preclude additional evaluation if suspicious findings are present clinically. An [place] [employer]ified [employer]. [facility] Breast [facility] utilizes HipSwap as a reminder system to notify patients of their next recommended mammograms. Edited by Susan Velazquez on 07/30/2017 11:08 AM Jarrell Garrison MD MAMMO ORDERABLES documented in this encounter Visit Diagnoses Diagnosis Abnormal mammogram Abnormal mammogram, unspecified documented in this encounter Care Teams Judicial Registrar Relationship Specialty Start Date End Date Etienne Florez MD Orthopedic Surgery 12/09/14 documented as of this encounter
--- OUTSIDE RECORDS SUMMARY | 2024-05-26 12:43 | XMS_ITS | Encounter Summary ---
Author Organization [facility] Address [address] [place] [address] Care Team Providers Care Supervisor Paint Name Role Phone Etienne Florez MD Unavailable [phone] Reason for Visit * Reason Comments HSP Encounter Details Date Type Department Care Team (Late st Contact Info) Description 08/28/2017 3:00 PM CDT Office Visit [facility] Neurosciences [address] [facility] [address] [place] [phone] [place] [address] [facility] [address] [place] [phone] 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) Social History Tobacco Use Types [...] Sign Reading Time Taken Comments Blood Pressure 144/60 08/28/2017 3:21 PM CDT Pulse 84 08/28/2017 3:21 PM CDT Temperature - - Respiratory Rate 14 08/28/2017 3:21 PM CDT Oxygen Saturation 94% 08/28/2017 3:21 PM CDT Inhaled Oxygen Concentration - - Weight 94.3 kg (208 lb) 08/28/2017 3:21 PM CDT Height 165.1 cm (5' 5 ) 08/28/2017 3:21 PM CDT Body Mass Index 34.61 08/28/2017 3:21 PM CDT documented in this encounter Functional [...] Instructions * Patient Instructions* Eva Sinha - 08/28/2017 4:04 PM CDT Call physician if symptoms worsen or with any questions. Take Medications as prescribed. For descriptions of a variety of neurological conditions please visit: [email or web address] documented in this encounter Progress Notes * Nelson Ross MD - 08/28/2017 3:47 PM CDT CC: HSP IH: Just had breast surgery for lesion on mammogram and was malignant but got it all. Has fallen a couple of times. Memory has been getting worse. 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 No leg pain. Uses a walker to walk. Cannot sleep in bed because of leg pain and ommobility. Outpatient Prescriptions Marked as Taking for the 08/28/17 encounter (Office Visit) with Nelson Ross MD Medication Sig Dispense Refill ??? HYDROcodone-acetaminophen (NORCO) 5-325 MG tablet Take 1 tablet by mouth every 6 hours as needed for Pain 20 tablet 0 ??? lubiprostone (AMITIZA) 24 MCG capsule Take 1 capsule by mouth daily with breakfast 30 capsule 0 ??? potassium chloride (KLOR-CON 10) 10 [...] mouth once daily 90 Tab 2 ??? clopidogrel (PLAVIX) 75 [...] TBCR Take by mouth once daily. 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
--- OUTSIDE RECORDS SUMMARY | 2024-05-26 12:43 | XMS_ITS | Encounter Summary ---
Author Organization [facility] Address [address] [facility] [place] [address] Care Team Providers Care Forestry Instructor Name Role Phone Etienne Florez MD Unavailable Reason for Visit * Auth/Cert Specialty Diagnoses / Procedures Referred By Contac t Referred To Contact Procedures EXCISION LESION/MASS BREAST Referral ID Status Reason Start Date Expiration Date Visits Re quested Visits Authorized [id number] 1 1 Encounter Details Date Type Department Care Team (Late st Contact Info) Description 08/25/2017 10:19 AM CDT Anesthesia Event [facility] - Perioperative Surgery [address] [place] [address] Adan Martin DO [address] [place] [address] Rosa Welch MD [address] [place] [address] Anesthesia Record Procedure Summary Procedure Name Responsible Anesthesiologist Anesthesia Start Time Anesthesia Stop Time EXCISION LEFT BREAST BX W/WIRE LOC IN RADIOLOGY (Left: Breast) Adan Martin DO 08/25/17 1019 08/25/17 1129 Events Date Time Event Comment 08/25/2017 0740 1019 An Start 1021 An Start Data 1021 PT Reassessment 1028 An Induction 1032 LMA 1034 Time Out Anesthesia part icipated in timeout at the time documented in the record by nursing 1117 An Emergence 1117 AN LMA REMOVE 1120 Electnc Sig 1120 an stop data 1120 ANPTO2 1129 An Stop Meds Name Total fentaNYL 100 mcg/2mL injection 100 mcg lidocaine 2% (PF) injection (20 mg/mL) 5 0 mg propofol 200 mg/20mL injection 120 mg ondansetron 4 mg/2mL injection 4 mg dexamethasone 4 mg/mL injection 4 mg ceFAZolin (ANCEF) syringe 2,000 mg 2 g lactated ringers infusion 100 mL * Agents Name Exp. Sevoflurane O2 Insp. Sevoflurane * Blood No blood administrations on file. Lines, Drains, and Airways Type Details Placement Removal Peripheral IV Date: 08/25/17; Time : 715; Orientation: Right; Placed By: DES Lee; Tolerance: Well 08/25/17 0716 by Aleisha Benitez RN 08/26/17 1734 by Generic, Auto Release Procedural Site (Incision) 08/25/17; 1037; Left; Breast; 08/26/17; 1734 08/25/17 1037 by Nina Tejada, DES 08/26/17 1734 by Generic, Auto Release LMA 08/25/17; 1039 (created via procedure documentation); JUANITO Riley; 100% O2; Standard IV; easy mask; LMA; 4.0; Direct visualization, Bilateral breath sounds, Chest Auscultation, CO2 Monitor; 08/25/17; 1117 08/25/17 1039 by Elie Rob APRN-CRNA 08/25/17 1117 by Elie Rob APRN-CRNA documented in this encounter Social History Tobacco [...] as of this encounter Progress Notes * Elie Rob APRN-CRNA - 08/25/2017 11:29 AM CDT ANESTHESIA POSTOP EVALUATION NOTE Procedure: EXCISION LEFT BREAST BX W/WIRE LOC IN RADIOLOGY (Left Breast) Perla Leon is a 76 y.o. female Patient Vitals for the past 6 hrs: BP Temp Pulse Resp Pulse - (SPO2/Cuff) SpO2 SP02 Frequency O2 L/M O2 DEVICE Pain Scale/Observation 08/25/17 1124 146/63 - 67 15 67 bpm 90 % Continuous 4 Nasal Cannula - 08/25/17 0711 145/73 96.6 ??F (35.9 ??C) 67 16 - 96 % Spot Check - Room Air - 08/25/17 0704 - - - - - - - - - No/denies pain Anesthesia Type: general * No Diagnosis Codes entered * Postop Diagnosis: See Surgeon Note Mental Status: awake, sufficiently recovered from acute administration of anesthesia to participatein the evaluation and alert Neuro Status: No numbess, tingling or visual disturbances Respiratory Function: natural Cardiac Function: stable Postop Pain: acceptable to the patient Postop Hydration: adequate Postop Nausea: none Assessment: no apparent anesthetic complications, patient tolerated procedure well and no evidence of recall Patient Disposition: Release from Anesthesia Care documented in this encounter Procedure Notes * Elie Rob APRN-CRNA - 08/25/2017 10:38 AM CDTAssociated Order(s): LARYNGEAL MASK AIRWAY LMA Placement Procedure/LDA Note: Patient Location: OR. Procedure: LMA. Pretreatment: 100% O2 Induction: standard IV Patient position: supine. Mask Ventilation: easy Type: LMA Size: 4 Number of Attempts: 1. Placement verified by: direct visualization, bilateral breath sounds, chest auscultation and CO2 monitor Staff Section Anesthesia Provider: ELIE ROB, Performed documented in this encounter Consult Notes * Rosa Welch MD - 08/25/2017 7:35 AM CDT ANESTHESIA PREOPERATIVE EVALUATION NOTE Procedure: EXCISION LEFT BREAST BX W/WIRE LOC (Breast) Vitals: Patient Vitals for the past 6 hrs: BP Temp Pulse Resp SpO2 SP02 Frequency O2 DEVICE Pain Scale/Observation 08/25/17 0711 145/73 96.6 ??F (35.9 ??C) 67 16 96 % Spot Check Room Air - 08/25/17 0704 - - - - - - - No/denies pain ANESTHESIA PRE-EVALUATION NOTE Physical Exam: Orientation: Orientation X3 Airway/Mallampati Score: III Mouth Opening Distance: 3 fingerwidths Neck ROM: full TM Distance: > 3 FB Teeth: Other - comments (missing teeth bilaterally) Heart: regular rate rhythm and murmur Lungs: normal Abdomen Exam: obese Review of Systems: History of anesthetic complications: No GERD: GERD: No Poor Exercise Tolerance: Yes (demyelinating disease, walks with walker) Recent Chest Pain: No Shortness of Breath: No AICD/Pacemaker: No Renal Disease: No Diagnostic Tests: ECG(s) reviewed: Yes Lab(s) reviewed: Yes. ANESTHESIA PLAN ASA Score: 3 NPO Status: No solids since midnight, No solids for 6 hours and No liquids within 2 hours Anesthesia Plan: general LMA Planned Induction: intravenous Planned Postop Destination: PACU Anesthetic plan was discussed with: patient Anesthetic Plan discussion was: Consented The patient's procedural Anesthetic Plan with discussed with the anesthesiologist and SEARCH ENGINE OPTIMIZATION SPECIALIST. BMI, Height, Weight Tobacco History Estimated body mass index is 35.28 kg/(m^2) as calculated from the following: Height as of this encounter: 1.651 m (5' 5 ). Weight as of this encounter: 96.2 kg (212 lb). History Smoking Status ??? Never Smoker Smokeless Tobacco ??? Never Used Alcohol History Drug History History Alcohol Use No History Drug Use No Outpatient Medications: Inpatient Medications: No current outpatient prescriptions on file. Current Facility-Administered Medications Medication Dose Last Dose ??? ceFAZolin 2 g ??? lidocaine 0.5 mL 0.5 mL at 08/25/17 0717 ??? lactated ringers Allergies: Allergies Allergen Reactions ??? Advair Diskus YEAS INFECTION ??? Aricept [Donepezil] ??? Diltiazem Swelling ??? Metformin Other reaction(s): Other (See Comments) unknown ??? Fluticasone Other reaction(s): Other (See comments) Reaction: colon problems, ??? Piper Longum ??? Salmeterol Other reaction(s): Other (See comments) Reaction: colon problems, Problem List: Patient Active Problem List Diagnosis Date Noted ??? Long-term insulin use 06/12/2016 Priority: Not [...] 08/2005, 07/2010 ??? Shingles 2002, 2007 ??? TIA (transient ischemic attack) 2000, 08/11/2008 [...] ARM Lab Tests: Recent Labs Component Name 08/25/17 0717 12/28/16 1814 WBC 6.3 - 7.6 HGB 11.6* - 11.5* HCT 38.7 - 37.1 PLTCOUNT 388 - 318 INR - - 1.0 - = values in this interval not displayed. Recent Labs Component Name 06/12/17 0823 SODIUM 141 POTASSIUM 3.5 CHLORIDE 102 CO2 31 BUN 15 CREATININE 0.92 Recent Labs Component Name 06/12/17 0823 GLUCOSE 90 CALCIUM 10.4 ALT 21 AST 17 No results for input(s): HCG in the last 20456 hours. Pt has demyelinating muscular disease familial spastic paraplegia. Walk with walker, weak. No respiratory issues. No steroids. Has leg spasms occasioanally Hx afib, rate is 67 bpm, on plavix, last plavix 6 days ago Has murmur, echo 2016 unremarkable Has asthma, uses inhalers as needed, no recent cough or cold, no smoking, lungs are clear Hx TIA, no residuals, on plavix, had a seizure with one of her TIAs in 2000, no seizure meds, no recurrence Echo IMPRESSION: 1. TECHNICALLY DIFFICULT STUDY WITH ALL OF THE VIEWS SOMEWHAT SUBOPTIMAL. 2. CONCENTRIC LVH, MILD. 3. MILD CALCIFICATION AND THICKENING OF THE MITRAL ANNULUS AND ALSO THE AORTIC VALVE LEAFLETS.?NO SIGNIFICANT STENOSIS. 4. HYPERDYNAMIC GLOBAL LV FUNCTION WITH ESTIMATED EJECTION FRACTION OF 70-75%. 5. NO LV MURAL THROMBUS OR VALVULAR VEGETATIONS. 6. MITRAL REGURGITATION, TRIVIAL. 7. PROBABLE DIASTOLIC DYSFUNCTION. Interpreting Physician:?DR DARIN DIXON M.D.?Read on:?Sep 27 2015 11:00A Rosa Welch MD documented in this encounter Miscellaneous Notes * Anesthesia Transfer of Care - Elie Rob APRN-CRNA - 08/25/2017 11:28 AM CDT ANESTHESIA TRANSFER OF CARE NOTE Today's Date: 08/25/2017 Date of : 1940 Patient: Perla Leon Procedure(s): EXCISION LEFT BREAST BX W/WIRE LOC IN RADIOLOGY Surgeon(s): Primary: Shira Love DO Preop Diagnosis: [...] reaction(s): Other (See comments) Reaction: colon problems, Vitals: Patient Vitals for the past 3 hrs: BP Pulse Resp Pulse - (SPO2/Cuff) SpO2 SP02 Frequency O2 L/M O2 DEVICE 08/25/17 1124 146/63 67 15 67 bpm 90 % Continuous 4 Nasal Cannula Lines, Drains, and Airways Type Details Placement Removal Peripheral IV 08/25/17; 0716; Right; Hand; DES Lee; 20 Gauge; 1; Injectable; Well 08/25/17 0716by Aleisha Benitez RN LMA 08/25/17; 1039 (created via procedure documentation); JUANITO Riley; 100% O2; Standard IV; easy mask; LMA; 4.0; Direct visualization, Bilateral breath sounds, Chest Auscultation, CO2 Monitor; 08/25/17; 1117 08/25/17 1039 by Elie Rob APRN-CRNA 08/25/17 1117 by Elie Rob APRN-CRNA Intraprocedure I/O Totals Anesthesia Other Output Estimated Blood Loss 20 mL lactated ringers infusion Volume infused 100 ml Patient Transfer Location: PACU Transport Airway: spontaneous respirations and supplemental O2 Complications: None Handoff Given? Yes Checklist or [...] of report from the receiving PACUteam. JUANITO Riley documented in this encounter Plan of Treatment Not on file documented as of this encounter Goals Goal Patient Goal Type Associated Problems Recent Progress Patient-Stated? Author Blood Pressure < 140/90 Blood Pressure 127/52(2022 8:09 AM WOMENS HEALTH NURSE PRACTITIONER) No Alisa Jaramillo HEMOGLOBIN A1C < 7.0 Result Component 5.4( 12:00 AM CDT) No Alisa Jaramillo documented as of this encounter Procedures Procedure Name Priority Date/Time Associated Diagnosis Comments LARYNGEAL MASK AIRWAY Routine 08/25/2017 10:39 AM CDT Procedure Note - Elie Rob APRN-CRNA - 08/25/2017 10:38 AM CDTThis note is in progress. LMA Placement Procedure/LDA Note: Patient Location: OR. Procedure: LMA. Pretreatment: 100% O2 Induction: standard IV Patient position: supine. Mask Ventilation: easy Type: LMA Size: 4 Number of Attempts: 1. Placement verified by: direct visualization, bilateral breath sounds,chest auscultation and CO2 monitor Staff Section Anesthesia Provider: ELIE ROB, Performed documented in this encounter Visit Diagnoses Not [...] of anti-infective therapy: Wound, Pre-op $ Given 08/25/2017 10:33 AM CDT 2 g dexamethasone (DECADRON) injection PRN, Nausea/Vomiting, Starting on Fri08/25/17 at 1037, Until Fri08/25/17 at 1129, Anesthesia Intra-op $ Given 08/25/2017 10:37 AM CDT 4 mg fentaNYL (PF) (SUBLIMAZE) injection PRN, Starting on Fri08/25/17 at 1033, Until Fri08/25/17 at 1129, Anesthesia Intra-op $ Given 08/25/2017 11:01 AM CDT 25 mcg $ Given 08/25/2017 10:49 AM CDT 25 mcg $ Given 08/25/2017 10:33 AM CDT 50 mcg lidocaine hcl (PF) (XYLOCAINE MPF) 2 % injection PRN, Starting on Fri08/25/17 at 1028, Until Fri08/25/17 at 1129, Anesthesia Intra-op $ Given 08/25/2017 10:28 AM CDT 50 mg Ondansetron HCl (ZOFRAN) injection PRN, Nausea/Vomiting, Starting on Fri08/25/17 at 1044, Until Fri08/25/17 at 1129, Anesthesia Intra-op $ Given 08/25/2017 10:44 AM CDT 4 mg propofol (DIPRIVAN) injection PRN, Starting on Fri08/25/17 at 1028, Until Fri08/25/17 at 1129, Anesthesia Intra-op $ Given 08/25/2017 10:28 AM CDT 120 mg documented in this encounter Care Teams Forestry Instructor Relationship Specialty Start Date End Date Etienne Florez MD Orthopedic Surgery 12/09/14 documented as of this encounter
--- OUTSIDE RECORDS SUMMARY | 2024-05-26 12:43 | XMS_ITS | Encounter Summary ---
Author Organization [facility] Address [address] [place] [address] Care Team Providers Care Canoe Inspector Name Role Phone Etienne Florez MD Unavailable [phone] Reason for Visit * Reason Onset Date Comments Returned Call 08/06/2017 Encounter Details Date Type Department Care Team (Late st Contact Info) Description 08/06/2017 Telephone [facility] - Family Medicine [address] [place] [address] [address] [place] [address] Jarrell Garrison MD [facility] [address] [phone] Returned Call Social History Tobacco Use Types Packs/Day [...] * Telephone Encounter - Eva Rutherford - 08/06/2017 1:55 PM CDT The patient is scheduled for 08/19/17 at 1:00pm. * Telephone Encounter - Eva Rutherford - 08/06/2017 1:04 PM CDT Called and left a message for the patient to schedule an appointment. * Telephone Encounter - Rajiv Beasley - 08/06/2017 12:29 PM CDT Pt called returning phone call from office. Pt would like A call back. documented in this encounter Plan of Treatment Not on file documented as of this encounter Goals Goal Patient Goal Type Associated Problems Recent Progress Patient-Stated? Author Blood Pressure < 140/90 Blood Pressure 127/52(2022 8:09 AM HELP DESK ASSISTANT) No Alisa Jaramillo HEMOGLOBIN A1C < 7.0 Result Component 5.4( 12:00 AM CDT) No Alisa Jaramillo documented as of this encounter Visit Diagnoses Not on filedocumented in this encounter Care Teams Canoe Inspector Relationship Specialty Start Date End Date Etienne Florez MD Orthopedic Surgery 12/09/14 documented as of this encounter
--- OUTSIDE RECORDS SUMMARY | 2024-05-26 12:43 | XMS_ITS | Encounter Summary ---
Author Organization [facility] Address [address] [place] [address] Care Team Providers Care Flower Picker Name Role Phone Etienne Florez MD Unavailable Enriqeu Gonzalez MD Unavailable [phone] Theresa Camargo MD Primary Care Provider Nelson Ross MD Unavailable [phone] Laz Valencia MD Unavailable Russell Moran MD Unavailable Yuliya Ibarra MD Unavailable Phuong Callejas DPM Unavailable [phone] Sy Barrientos MD Unavailable Russell Moran MD Unavailable Rico Gasca MD Unavailable Elle Landaverde MD Unavailable [phone] Kirk Truong MD Unavailable [phone] Shira Love DO Unavailable [phone] Theresa Camargo MD Unavailable + 00 Brooke Haynes HEMODIALYSIS TECHNICIAN-BISQUE PLACER Unavailable +0 Theresa Camargo MD Unavailable + 00 Brooke Haynes HEMODIALYSIS TECHNICIAN-BISQUE PLACER Unavailable +0 Theresa Camargo MD Unavailable + 00 Asha Narvaez HEMODIALYSIS TECHNICIAN-BISQUE PLACER Unavailable +0 Theresa Camargo MD Unavailable + 00 Asha Narvaez HEMODIALYSIS TECHNICIAN-BISQUE PLACER Unavailable + Sara Schultz MD Unavailable + 80 CandelariaBrooke quiñonez HEMODIALYSIS TECHNICIAN-BISQUE PLACER Unavailable + Rosa Abraham RN Unavailable [phone] Hussain Ray MD Unavailable + 00 Theresa Camargo MD Unavailable + 00 Enrique Gonzalez MD Unavailable + 42 Rosa Abraham RN Unavailable [phone] Elizabeth Car MD Primary Care Provider + Theresa Camargo MD Primary Care Provider + Rosa Abraham RN Unavailable [phone] Elizabeth Car MD Primary Care Provider + Encounter Details Date Type Department Care Team (Late st Contact Info) Description 08/05/2017 [facility] Outpatient Visit [facility] [address] [place] [address] [place] [address] [place] [address] Social History Tobacco Use Types [...] < 140/90 Blood Pressure 127/52(2022 8:09 AM LEAD CYTOGENETIC TECHNOLOGIST) No Alisa Jaramillo HEMOGLOBIN A1C < 7.0 Result Component 5.4( 12:00 AM CDT) No Alisa Jaramillo documented as of this encounter Visit Diagnoses Not on filedocumented in this encounter Additional Health Concerns Infection Onset Date Last Indicated Resolved Time COVID-19 Under Investigation 09/26/2020 09/26/2020 09/27/2020 7:46 AM CDT CDIFF Under Investigation 05/19/2022 05/19/2022 9:06 PM LEAD CYTOGENETIC TECHNOLOGIST documented as of this encounter Care Teams Flower Picker Relationship Specialty [place] [address] [facility] [address] [place], [place] [id number] PCP - General Internal Medicine 03/31/18 05/30/22 [place] [address] [facility] [address] [place] [address] PCP - Attributed-MSSP 04/18/19 06/18/19 Brooke Haynes APRN-BISQUE PLACER [address] [place] [address] PCP - Attributed-MSSP 06/19/19 07/17/19 [place] [address] [place] [address] PCP - Attributed-MSSP 07/18/19 10/17/19 Brooke Haynes HEMODIALYSIS TECHNICIAN-BISQUE PLACER [address] [place] [address] PCP - Attributed-MSSP 10/18/19 11/16/19 [place] [address] [place] [address] PCP - Attributed-MSSP 11/17/19 02/16/20 Asha Narvaez HEMODIALYSIS TECHNICIAN-BISQUE PLACER [address] [place] [address] PCP - Attributed-MSSP 02/17/20 06/18/20 [place] [address] [place] [address] PCP - Attributed-MSSP 06/19/20 08/16/20 Asha Narvaez HEMODIALYSIS TECHNICIAN-BISQUE PLACER [address] [place] [address] PCP - Attributed-MSSP 08/17/20 10/16/20 Brooke Haynes HEMODIALYSIS TECHNICIAN-BISQUE PLACER [address] [place] [address] PCP - Attributed-MSSP 10/17/20 09/15/21 [place] [address] [place] [address] PCP - Attributed-MSSP 09/16/21 11/15/21 [place] [address] [place] [address] PCP - Attributed-MSSP 11/16/21 10/03/22 Elizabeth Car MD [address] [place] [address] PCP - General Family Medicine 05/31/22 08/05/22 [place] [address] [place] [address] PCP - General 08/06/22 08/14/22 Elizabeth Car MD [address] [facility] [address] [place] [address] PCP - General Family Medicine 08/15/22 Etienne Florez MD Orthopedic Surgery 12/09/14 [place] [address] [place] [address] Oncology 09/15/17 [place] [address] [place] [address] Neurology 06/26/18 [place] [address] [facility] [address] [place] [address] Cardiovascular Disease 06/26/18 [place] [address] [address] Pulmonary Disease 06/26/18 Yuliya Ibarra MD [address] [place] [address] Endocrinology 06/26/18 Phuong Callejas DPM [address] [place], [place] [address] Podiatry 06/26/18 Sy Barrientos MD [address] [place] [address] [place] [address] Ophthalmology 06/26/18 [place] [address] [address] Pulmonary Disease 06/26/18 Rico Gasca MD [address] [place] [address] Urology 06/26/18 Elle Landaverde MD [address] [place] [address] Vascular Surgery 06/26/18 Kirk Truong MD [address] [place] [address] Gastroenterology 06/26/18 [place] [address] [facility] [address] [place] [address] General Surgery 06/26/18 [place] [address] [facility] [address] [place] [address] Pulmonary Disease 11/10/20 Rosa Abraham RN Accounts Payable AdministratorFlexboard Operator 06/19/21 07/05/21 Hussain Ray MD [address] [facility] [address] [place] [address] Urology 07/11/21 Rosa Abraham RN Accounts Payable AdministratorFlexboard Operator 05/31/22 05/31/22 Rosa Abraham RN Accounts Payable AdministratorFlexboard Operator 08/15/22 08/15/22 documented as of this encounter
--- OUTSIDE RECORDS SUMMARY | 2024-05-26 12:43 | XMS_ITS | Encounter Summary ---
Author Organization [facility] Address [address] [facility] [place] [address] Care Team Providers Care Sales Attendant Name Role Phone Etienne Florez MD Unavailable [phone] Reason for Visit * Auth/Cert Specialty Diagnoses / Procedures Referred By Contac t Referred To Contact Procedures EXCISION LESION/MASS BREAST Referral ID Status Reason Start Date Expiration Date Visits Re quested Visits Authorized [id number] 1 1 Encounter Details Date Type Department Care Team (Late st Contact Info) Description 08/25/2017 6:30 AM CDT - 08/26/2017 11:34 AM CDT Hospital Encounter [facility] 6[address] Telemetry [address] [place] [address] [place] [address] [place] [address] [place] [address] [address] [place] [address] Surgery Discharge Disposition: Home or Self Care Social [...] 08/25/2017 Discharge date: 08/26/2017 Admitting Physician: Shira Love DO Attending Physician: Shira Love DO Discharge Physician: Shira Love DO Admission Diagnosis: Left breast mass, shortness [...] Diagnostic Studies Recent Labs Component Name 08/26/17 04108/25/17 0717 06/12/17 0823 SODIUM 140 142 141 POTASSIUM 3.1* 2.9* 3.5 CHLORIDE 104 105 102 CO2 31 29 31 BUN 21 21 15 CREATININE 0.89 0.80 0.92 GLUCOSE 167* 122* 90 CALCIUM 9.3 9.8 10.4 Recent Labs Component Name 08/26/17 0413 08/25/1717 06/12/17 0823 WBC 12.6* 6.3 8.2 HGB 10.0* 11.6* 11.2* HCT 33.4* 38.7 37.2 PLTCOUNT 386 388 425* No results for input(s): TROPONIN in the last 80420 hours. Treatments See hospital course Procedures surgery: [...] hours as needed for Pain Shira Love CONTINUE taking these medications which have NOT [...] Your discharge diagnosis is: Left breast mass [[id number]] Follow up with Primary Care Provider (PCP) [...] Emergency Contact: Thiago Leon Address: [address] Relation: Spouse Secondary Emergency Contact: Ange Reyes [facility] Relation: Daughter Anticipated Discharge Date: Anticipated level of care at discharge: Unknown Prior Level of Functioning: independent Equipment at Home: Walker is needed Additional Equipment needed at home (does not have at home now): PCP: Jarrell Garrison MD If no PCP, action taken: Pharmacy benefit: Yes SW Referral: no Readmission Risk Score: INSURANCE SPECIAL AGENT TOTAL SCORE: 5 If there is no [...] For any questions or needs please contact: Activities Volunteer Name/Phone number: Cora Johnson RN/[phone] * Nevin Moreno - 08/26/2017 10:47 AM [...] will be within specified limits Outcome: Ongoing Eprla's resp rate/effort will be within acceptable limits [...] oriented x3 Labs Recent Labs Component Name 08/26/17 0413 08/25/17 [...] results for input(s): CKMB in the last 37993 hours. No results for input(s): TROPONIN in the last 86292 hours. Assessment and Plan 76 y/o female [...] Surgery 9:20 AM 08/26/2017 [facility] Office: [phone] Exchange: [phone] * Nevin Moreno - 08/25/2017 7:00 PM [...] dominant mass lesion. Data Reviewed: Mammograms from [facility] reviewed today. FINDINGS: A small spiculated distortion [...] abnormality.?? RECOMMENDATIONS: Surgical consultation. ?? Ultrasound from [facility] reviewed today. Directed grayscale ultrasound performed and [...] this encounter Consult Notes * Stu Gracia, COMPTROLLER-PRODUCT SAFETY MANAGER - 08/25/2017 11:23 PM CDTAssociated Order(s): IP [...] mg by mouth every 7 days Yes ProviderDesiree MD amitriptyline (ELAVIL) 25 MG tablet Take [...] to affected area as needed for Other Desiree Walker MD clopidogrel (PLAVIX) 75 MG tablet Take 1 Tab by mouth at bedtime 12/04/16 Jarrell Garrison MD albuterol HFA (PROAIR HFA) 108 (90 BASE) MCG/ACT inhaler Take 2 Puffs by mouth every 4 hours as needed. Provider, Desiree, Review of Systems - Denies lightheaded, dizziness, [...] We will co-manage with you. Stu Gracia APRN-PRODUCT SAFETY MANAGER 08/25/2017 documented in this encounter OR Notes * Operative - Shira Love DO - 08/25/2017 11:12 AM CDT Operative Note Date: 08/25/2017 Preoperative Diagnosis: Left breast mass Operative Diagnosis: Left breast mass Procedure: 1. Left Breast Excisional Biopsy with Needle Localization 2. Intraoperative specimen radiograph Surgeon: Shira Love DO Stencil Inspector: DANIA Basilio Type of anesthesia: General, Local [...] < 140/90 Blood Pressure 127/52(2022 8:09 AM WAITER/WAITRESS FIRST CLASS) No Schildroth, Alisa HEMOGLOBIN A1C < 7.0 Result Component 5.4( 1 12:00 AM CDT) No Clint Alisa documented [...] POINT OF CARE ORDERABLES Performing Organization Address City/[facility]/ZIP Co de Phone Number [facility] [address] [place], [place] [id number] * MAGNESIUM BLOOD (08/26/2017 4:13 AM CDT) Pathologist [facility] Magnesium 2.6 1.6 - 2.6 mg/dL 08/26/2017 6:50 AM CDT [facility] Blood BLOOD SPECIMEN / Unknown Venipuncture / Unknown 08/26/2017 4:13 AM CDT 08/26/2017 6:42 AM CDT Stu Gracia COMPTROLLER-PRODUCT SAFETY MANAGER LAB - CHEMISTR Y ORDERABLES Performing Organization Address City/[facility]/ZIP Co de Phone Number [facility] [address] [place] [address] * (ABNORMAL) HEMOGLOBIN A1C (08/26/2017 4:13 AM CDT) [facility] Hemoglobin A1c 7.0(H) 4.2 - 6.3 % 08/26/2017 5:52 AM CDT [facility] Estimated Average Glucose 154 mg/dL 08/26/2017 5:52 AM CDT [facility] Whole Blood BLOOD SPECIMEN WITH EDTA / Unknown Venipuncture / Unknown 08/26/2017 4:13 AM CDT 08/26/2017 4:49 AM CDT Stu Gracia [facility] - CHEMISTR Y ORDERABLES Performing Organization Address [facility] de Phone Number [facility] [address] [place] [address] * TROPONIN I (08/26/2017 4:13 AM CDT) [facility] Troponin I <0.015 0.000 - 0.049 ng/mL [...] embolism, renal failure and sepsis. Stu Gracia [facility] - CHEMISTR Y ORDERABLES Performing Organization Address [facility] Co de Phone Number [facility] [address] [place] [phone] * (ABNORMAL) BASIC METABOLIC PANEL (CALCIUM TOTAL) (08/26/2017 4:13 AM CDT) [facility] Glucose 167(H) 74 - 106 mg/dL 08/26/2017 [...] CDT 08/26/2017 4:49 AM CDT Stu Gracia COMPTROLLER-PRODUCT SAFETY MANAGER LAB - CHEMISTR Y ORDERABLES Performing Organization Address City/State/[facility] Co de Phone Number [facility] [address] [place] [address] * (ABNORMAL) CBC W/O DIFFERENTIAL [...] 30.8 - 35.9 gm/dL 08/26/2017 5:00 AM T [facility] Platelet Count 386 153 - 416 x10E9/L 08/26/2017 5:00 AM T [facility] RDW-CV 19.7(H) 12.1 - 14.9 % 08/26/2017 5:00 AM T [facility] MPV 10.8 9.4 - 12.9 fl 08/26/2017 5:00 AM CDT [facility] Blood BLOOD SPECIMEN / Unknown Venipuncture / Unknown 08/26/2017 4:13 AM CDT 08/26/2017 4:49 AM CDT Stu Gracia COMPTROLLER-PRODUCT SAFETY MANAGER LAB - HEMATOLO GY ORDERABLES Performing Organization Address City/[facility]/ZIP Co de Phone Number [facility] [address] [place] [address] * (ABNORMAL) GLUCOSE - POINT OF CARE (08/25/2017 8:24 PM CDT) Glucose WB/POC 239(H) 70 - 106 mg/dL 08/25/2017 8:46 PM CDT [facility] Specimen Type CAPILLARY BLOOD 08/25/2017 8:46 PM CDT [facility] Blood BLOOD SPECIMEN / Unknown 08/25/2017 8:24 PM CDT 08/25/2017 8:46 PM CDT Shira Love DO LAB - POINT OF CARE ORDERABLES Performing Organization Address [facility]/ZIP Co de Phone Number [facility] [address] [place] [address] * MAMMO BREAST LEFT SPECIMEN [id number] (08/25/2017 3:52 PM CDT) Shira Love DO MAMMO ORDERABLES Performing Organization Address [facility]/ZIP Co de Phone Number [facility] [address] [place] [address] * TROPONIN I (08/25/2017 3:50 PM CDT) [...] embolism, renal failure and sepsis. Georgiana Kyle COMPTROLLER-PRODUCT SAFETY MANAGER LAB - CHEMISTRY ORDERABLES Performing Organization Address [facility] Co de Phone Number [facility] [id number] [place] [phone] * XR CHEST 1VW PORTABLE (08/25/2017 3:01 [...] (Bezet) 504 ms [facility] MUSE Calculated P Mobile 76 degrees [facility] MUSE Calculated R Mobile -31 degrees [facility] MUSE Calculated T Mobile 54 degrees [facility] Interpretation EKG Normal sinus rhythm Left axis deviation Prolonged QT Abnormal ECG Confirmed by KENY JACKSON MD ([id number]) on 08/26/2017 7:56:02 PM [facility] MUSE 08/25/2017 2:57 PM CDT 08/26/2017 7:56 PM CDT Shira Love DO ECG ORDERABLES Performing Organization Address [facility] Co de Phone Number [facility] * (ABNORMAL) GLUCOSE - POINT OF CARE (08/25/2017 11:43 AM CDT) Glucose WB/POC 128(H) 70 - 106 mg/dL 08/25/2017 1:10 PM CDT [facility] Specimen Type CAPILLARY BLOOD 08/25/2017 1:10 PM CDT [facility] Blood BLOOD SPECIMEN / Unknown 08/25/2017 11:43 AM CDT 08/25/2017 1:10 PM CDT Shira Love DO LAB - POINT OF CARE ORDERABLES [facility] [address] [place] [address] * GROSS + MICRO EXAM (STL) (08/25/2017 9:27 AM CDT) Case Report Surgical Pathology Report ? Case: [id number] ? Authorizing Provider: ??Shira Love, DO ? Collected: ? 08/25/2017 09:27 AM ? Ordering Location: ? [facility] ? Received: ?08/25/2017 11:41 AM ? Pathologist: ? Femi Carbajal MD ? Specimen: ?Breast Mass, left breast mass with needle localization ? 08/31/2017 2:00 PM CDT [facility] Addendum 1 The results of kory t prognostic factors by immunohistochemical stains using computer assisted image analysis are as follows(performed on block A2): ER: Positive (96.6 %, intensity: strong) DE: Positive (22.5 %, intensity: moderate) Her-2-osmin: Not [...] cut surface demonstrates yellow-orange, fibrofatty breast tissue. Farm Advisor sections are submitted as follows: A1 through A3 - Mass submitted entirely in relationship to anterior and posterior margins A4 - Superior margin in closest proximity to mass, perpendicular section A5 - Inferior margin in closest proximity to mass, perpendicular section A6 - Medial margin, shaved A7 - Lateral margin, shaved. /moiz 08/31/2017 2:00 PM CDT [facility] Microscopic Description The left breast mass [...] with non-neoplastic tissue. AB/ns 08/31/2017 2:00 PM [facility] Disclaimer All histochemical and/or immunohistochemical results are interpreted with controls that demonstrate appropriate staining reactions before reporting results. Note on use of immunocytochemistry reagents: This test was developed and its performance characteristic determined by [facility], Department of Laboratory Medicine. It has not been cleared or approved by the U.S. Food and Drug Administration (FDA). The FDA has determined that such clearance or approval is not necessary. The test is used for clinical purpose. It should not be regarded as investigational or for research. This laboratory is certified to perform high complexity testing. 08/31/2017 2:00 PM [facility] Synoptic Report INVASIVE CARCINOMA OF THE BREAST ??(Breast Invasive - All Specimens) SPECIMEN ?? Procedure: ?Excision (less than total mastectomy) ?? Specimen Laterality: ?Left TUMOR ?? Tumor Site: Invasive Carcinoma: ?Not specified ?? Histologic Type: ?Invasive carcinoma of no special type (ductal, not otherwise specified) ?? Histologic Grade (Oh[place]opyle Histologic Score): ? Glandular (Acinar) / Tubular [...] - PATHOLOGY/CYTO LOGY ORDERABLES Performing Organization Address [facility] Co de Phone Number [facility] [id number] [place] [address] * (ABNORMAL) GLUCOSE - POINT OF CARE [...] POINT OF CARE ORDERABLES Performing Organization Address [facility] de Phone Number [facility] [address] [place] [address] * (ABNORMAL) BASIC METABOLIC PANEL (CALCIUM TOTAL) [...] - 107 mmol/L 08/25/2017 7:44 AM CDT [facility] CO2 29 22 - 31 mmol/L 08/25/2017 7:44 AM CDT [facility] Calcium 9.8 8.5 - 10.1 mg/dL 08/25/2017 7:44 AM CDT [facility] Anion Gap 8 8 - 16 mmol/L 08/25/2017 7:44 AM CDT [facility] BUN 21 7 - 21 mg/dL 08/25/2017 7:44 AM CDT [facility] Creatinine 0.80 0.50 - 1.30 mg/dL 08/25/2017 7:44 AM CDT [facility] eGFR by MDRD >60 mL/min/1.7 3m2 08/25/2017 7:44 AM CDT [facility] eGFR by MDRD >60 mL/min/1.7 3m2 08/25/2017 7:44 AM CDT [facility] Blood BLOOD SPECIMEN / Unknown Venipuncture / Unknown 08/25/2017 7:17 AM CDT 08/25/2017 7:25 AM CDT Nadja Valencia DO LAB - CHEMISTRY ROWAN QUIROZ [facility] Organization Address City/State/ZIP Co de Phone Number [facility] [address] [place] [address] * (ABNORMAL) CBC W/O DIFFERENTIAL (08/25/2017 7:17 AM CDT) WBC 6.3 4.4 - 10.7 x10E9/L 08/25/2017 7:29 AM CDT [facility] RBC 5.18 3.80 - 5.20 x10E12/L 08/25/2017 7:29 AM CDT [facility] Hemoglobin 11.6(L) 12.0 - 15.6 gm/dL 08/25/2017 7:29 AM CDT [facility] Hematocrit 38.7 35.9 - 45.5 % 08/25/2017 7:29 AM CDT [facility] MCV 74.7(L) 80.7 - 98.3 fl 08/25/2017 7:29 AM CDT [facility] MCH 22.4(L) 26.7 - 34.0 pg 08/25/2017 7:29 AM CDT [facility] MCHC 30.0(L) 30.8 - 35.9 gm/dL 08/25/2017 7:29 AM CDT [facility] Platelet Count 388 153 - 416 x10E9/L 08/25/2017 7:29 AM CDT [facility] RDW-CV 20.3(H) 12.1 - 14.9 % 08/25/2017 7:29 AM CDT [facility] MPV 10.2 9.4 - 12.9 fl 08/25/2017 7:29 AM CDT [facility] Blood BLOOD SPECIMEN / Unknown Venipuncture / Unknown 08/25/2017 7:17 AM CDT 08/25/2017 7:25 AM CDT Nadja Valencia DO LAB - HEMATOLOGY ORD ERABLES [facility] [address] [place] [address] documented in this encounter Visit Diagnoses Diagnosis Other chest pain- Primary Preop examination Preoperative examination, unspecified Diagnosis unknown Other unknown and unspecified cause of morbidity or mortality Uncomplicated asthma, unspecified asthma severity, unspecified whether persistent (HCC) Other chest pain Type 2 diabetes mellitus without complication, with long-term current use of insulin (HCC) Hypokalemia Hypopotassemia Breast mass, left Lump or mass in breast Hypokalemia Hypopotassemia documented in this encounter Administered Medications Inactive Administered Medications - up to 3 most recent administrations Medication Order MAR Action Action Date Dose Rate Site *Hold/Avoid Medication EVERY 12 HOURS (08 and ), 730 doses, First dose on [...] Fri08/25/17 at 2346, Until Fri08/26/17 at 1234 clopidogrel (plaVIX) tablet 75 mg 75 mg, [...] ($ Given - Provider: Aleisha Benitez RN) amitriptyline (ELAVIL) tablet 50 mg 50 mg, [...] Pre-op 1033 ($ Given - Provider: Russell Keenan, COMPTROLLER-HUMAN RESOURCE PROFESSIONAL) clopidogrel (plaVIX) tablet 75 mg (CANCELED) 75 mg, Oral, AT BEDTIME, 365 doses, First dose on Fri08/25/17 at 2115, Last dose on Fri08/24/18 at 2100 2115 ($ Given - Provider: Chelsea Gordon RN) flecainide (TAMBOCOR) tablet 50 mg 50 mg, Oral, 2 TIMES DAILY, First dose on Fri08/26/17 at 0900, Until Discontinued 0824 ($ Given - Prov ider: Nevin [...] combine and give at the same time. 0827 (Not Administer ed - Provider: Nevin Moreno [...] WASTE DISPOSAL INSTRUCTIONS: Black Bin Disposal required. 5 ($ Given - Provider: Chelsea Gordon RN) [...] dose on Fri08/25/17 at 2115, Until Discontinued 222 ($ Given - Provider: Chelsea Gordon, DES) 0823 ($ Given - Provider: Nevin Moreno) [...] RN)[phone] (Anesthesia Volume Adjustment - Provider: Russell Keenan, COMPTROLLER-HUMAN RESOURCE PROFESSIONAL) PRN Medication Order 08/24/2017 08/25/2017 08/26/2017 0.9% [...] 8 HOURS, 1095 doses, First dose on 4/9/18 at 2200, Last dose on Fri08/25/18 at [...] patency. documented in this encounter Care Teams Sales Attendant Relationship Specialty Start Date End Date Etienne Florez MD Orthopedic Surgery 12/09/14 documented as of this encounter
--- OUTSIDE RECORDS SUMMARY | 2024-05-26 12:43 | XMS_ITS | Encounter Summary ---
Author Organization [facility] Health Address [address] [place] [address] Care Team Providers Care Sectional Belt Mold Assembler Name Role Phone Etienne Florez MD Unavailable [phone] Reason for Referral * Radiology Services (Routine) - Closed Specialty Diagnoses / Procedures Referred By Contac t Referred To Contact Mammography Diagnoses Abnormal mammogram Procedures [place] [address] [address] [facility] Mammography [address] [place] [address] Referral ID Status Reason Start Date Expiration Date Visits Re quested Visits Authorized [id number] Closed 08/18/2017 02/14/2018 1 1 Reason for Visit * Auth/Cert Specialty Diagnoses / Procedures Referred By Contac t Referred To Contact Procedures EXCISION LESION/MASS BREAST Referral ID Status Reason Start Date Expiration Date Visits Re quested Visits Authorized [id number] 1 1 Encounter Details Date Type Department Care Team (Latest Contact Info) Description 08/25/2017 8:59 AM CDT - 08/25/2017 11:59 PM CDT Hospital Encounter [facility] Mammography [address] [place] [address] [place] [address] [facility] [address] [place] [address] Discharge Disposition: Home or Self [...] < 140/90 Blood Pressure 127/52(2022 8:09 AM FALSEWORK BUILDER) No Alisa Jaramillo HEMOGLOBIN A1C < 7.0 Result Component 5.4( 12:00 AM CDT) No Alisa Jaramillo documented as of this encounter Procedures Procedure Name Priority Date/Time Associated Diagnosis Comments MAMMO LEFT DIAGNOSTIC Routine 08/25/2017 12:06 PM CDT Abnormal mammogram documented in this encounter Results * MAMMO LEFT DIAGNOSTIC (08/25/2017 12:06 PM CDT) Anatomical Region Laterality Modality Left Mammography 08/25/2017 [...] the mass. Shira Love DO MAMMO ORDERABLES documented in this encounter Visit Diagnoses Diagnosis Abnormal mammogram Abnormal mammogram, unspecified documented in this encounter Care Teams Sectional Belt Mold Assembler Relationship Specialty Start Date End Date Etienne Florez MD Orthopedic Surgery 12/09/14 documented as of this encounter
--- OUTSIDE RECORDS SUMMARY | 2024-05-26 12:43 | XMS_ITS | Encounter Summary ---
Author Organization [facility] Health Address [address] [facility] [place] [address] Care Team Providers Care Textile Clothing And Footwear Mechanic Name Role Phone Etienne Florez MD Unavailable [phone] Reason for Visit * Reason Onset Date Comments Biopsy 07/30/2017 Encounter Details Date Type Department Care Team (Late st Contact Info) Description 07/30/2017 Telephone [facility] Imaging Services - Ultrasound [address] [place] [address] Cristy Zuniga RN Biopsy Social History Tobacco Use Types Packs/Day Years [...] encounter Miscellaneous Notes * Telephone Encounter - Cristy Zuniga RN - 07/30/2017 12:01 PM CDT Pt was here today for diagnostic mammogram/US of left breast. Results were abnormal and biopsy is recommended. Per Dr. 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 For this reason, pt needs to see surgeon to discuss having excisional biopsy done under general anesthesia. This was discussed with pt and her [id number]. They were given an appointment to see Dr. Love on 08/05/17 @ 12:50 along with educational booklet on breast biopsyprocedures. documented in this encounter Plan of Treatment Not on file documented as of this encounter Goals Goal Patient Goal Type Associated Problems Recent Progress Patient-Stated? Author Blood Pressure < 140/90 Blood Pressure 127/52(2022 8:09 AM HOUSE REGISTRY RN) No Alisa Jaramillo HEMOGLOBIN A1C < 7.0 Result Component 5.4( 12:00 AM CDT) No Alisa Jaramillo documented as of this encounter Visit Diagnoses Not on filedocumented in this encounter Care Teams Textile Clothing And Footwear Mechanic Relationship Specialty Start Date End Date Etienne Florez MD Orthopedic Surgery 12/09/14 documented as of this encounter
--- OUTSIDE RECORDS SUMMARY | 2024-05-26 12:43 | XMS_ITS | Encounter Summary ---
Author Organization [facility] Address [address] [facility] [place] [address] Care Team Providers Care Hvac Specialist Name Role Phone Etienne Florez MD Unavailable [phone] Reason for Visit * Reason Comments Pre-op Clearance Encounter Details Date Type Department Care Team (Late st Contact Info) Description 08/19/2017 1:00 PM CDT Office Visit [facility] - Family Medicine [address] [place] [address] [address] [place] [address] Jarrell Garrison MD [facility] [address] [address] Pre-op examination (Primary Dx); Lump or mass in breast Social History Tobacco Use Types Packs/Day Years [...] Sign Reading Time Taken Comments Blood Pressure 124/50 08/19/2017 1:21 PM CDT Pulse 62 08/19/2017 1:21 PM CDT Temperature 36.7 ??C (98 ??F) 08/19/2017 1:21 PM CDT Respiratory Rate 18 08/19/2017 1:21 PM CDT Oxygen Saturation 93% 08/19/2017 1:21 PM CDT Inhaled Oxygen Concentration - - Weight 97.8 kg (215 lb 9.6 oz) 08/19/2017 1:21 P M CDT Height 165.1 cm (5' 5 ) 08/19/2017 1:21 PM CDT Body Mass Index 35.88 08/19/2017 1:21 PM CDT documented in this encounter Functional [...] as of this encounter Progress Notes * Jrarell Garrison MD - 09/03/2017 6:47 AM CDT Perla Leon 76 y.o. 08/19/2017. CHIEF COMPLAINT/HPI: Follow up visit today. Pre- op for breast biopsy for lump. No acute symptoms reported. She has H/O A fib seeing cardiology at [facility]. No anginal S/S. Bp okay. Hr alright in office. NAD. PERSONAL HISTORY: Alcohol: none Caffeine: 0 cups caffeine per day Tobacco: unknown tobacco use Salt: salt added to cooking Occupation: Exercise: rarely REVIEW OF SYSTEMS Reviewed PHYSICAL EXAMINATION General: Wt Readings from Last 3 Encounters: 08/19/17 97.8 kg (215 lb 9.6 oz) 08/05/17 94.8 kg (209 lb) 07/22/17 95.2 kg (209 lb 12.8 oz) Temp Readings from Last 3 Encounters: 08/26/17 98.4 ??F (36.9 ??C) 08/19/17 98 ??F (36.7 ??C) (Oral) 07/22/17 98.3 ??F (36.8 ??C) (Oral) BP Readings from Last 3 Encounters: 08/28/17 144/60 08/26/17 131/53 08/19/17 124/50 Pulse Readings from Last 3 Encounters: 08/28/17 84 08/26/17 85 08/19/17 62 Body mass index is 35.88 kg/(m^2). General appearance - alert, well appearing, and in no distress Skin - normal coloration and turgor, no rashes, no suspicious skin lesions noted Eyes - pupils equal and reactive, extraocular eye movements intact ENT - ENT exam normal, no neck nodes or sinus tenderness Lymphatics - no palpable lymphadenopathy, no hepatosplenomegaly. Lungs - clear to auscultation, no wheezes, rales or rhonchi, symmetric air entry Heart - normal rate, regular rhythm, normal S1, S2, no murmurs, rubs, clicks or gallops Abdomen - soft, nontender, nondistended, no masses or organomegaly Extremeties - peripheral pulses normal, no pedal [...] spasm or pain on motion Musculoskeletal - Weakness Most Recent CBC Component Results Lab Results Component Value Date WBC 12.6 (H) 08/26/2017 RBC 4.45 08/26/2017 MCV 75.1 (L) 08/26/2017 MCH 22.5 (L) 08/26/2017 RDW 18.8 (H) 06/12/2017 GRANPCT 61.0 06/13/2016 LYMPHPCT 26.9 12/29/2016 MONOCYTPCT 12.9 12/29/2016 EOSINPCT 3.6 12/29/2016 BASOPHILPCT 0.6 12/29/2016 GRANABS 4.85 06/13/2016 LYMPHABS 1.77 12/29/2016 MONOCYTABS 0.85 12/29/2016 EOSINABS 0.24 12/29/2016 BASOABS 0.04 12/29/2016 ASSESSMENT: Encounter Diagnoses Name Primary? Pre-op examination Yes ??? Lump or mass in breast PLAN: Cardiology clearance letter requested Will provide clearance once info received Medications Reviewed Discussed with patient in detail. She is agreeable with care plan Jarrell Garrison MD * Shayy Abraham - 08/19/2017 1:28 PM CDT BP 124/50 (BP SITE: RIGHT ARM, BP POSITION: SITTING, BP CUFF SIZE: Adult) Pulse 62 Temp 98 ??F (Oral) Resp 18 Ht 1.651 m (5' 5 ) Wt 97.8 kg (215 lb 9.6 oz) SpO2 93% BMI 35.88 kg/m2 Patient Active Problem List Diagnosis Date [...] < 140/90 Blood Pressure 127/52(2022 8:09 AM 8TH GRADE TEACHER) No Alisa Jaramillo HEMOGLOBIN A1C < 7.0 Result Component 5.4( 12:00 AM CDT) No Alisa Jaramillo documented as of this encounter Visit Diagnoses Diagnosis Pre-op examination- Primary Preoperative examination, unspecified Lump or mass in breast documented in this encounter Care Teams Hvac Specialist Relationship Specialty Start Date End Date Etienne Florez MD Orthopedic Surgery 12/09/14 documented as of this encounter
--- OUTSIDE RECORDS SUMMARY | 2024-05-26 12:43 | XMS_ITS | Encounter Summary ---
Author Organization [facility] Address [address] [place] [address] Care Team Providers Care Bow Maker Gift Wrapping Name Role Phone Etienne Florez MD Unavailable [phone] Reason for Visit * Reason Onset Date Comments Question 08/05/2017 Encounter Details Date Type Department Care Team (Late st Contact Info) Description 08/05/2017 Telephone [facility] - Family Medicine [address] [place] [address] [address] [place] [address] Jarrell Garrison MD [address] [facility] [address] [address] Question Social History Tobacco Use Types Packs/Day [...] Telephone Encounter - Eva Rutherford - 08/06/2017 10:35 AM CDT I called and left a message for the patient to call our office back to schedule a pre-op physical. * Telephone Encounter - Ofe Fitzgerald Jr., MD - 08/05/2017 4:43 PM CDT Needs appt with Dr. Garrison For surgical clearance next week * Telephone Encounter - Milton Naidu - 08/05/2017 2:29 PM CDT Alice with Dr. Love office called stating that the pt is having surgery on 08/25 and is requesting to know if the pt is cleared for surgery. documented in this encounter Plan of Treatment Not on file documented as of this encounter Goals Goal Patient Goal Type Associated Problems Recent Progress Patient-Stated? Author Blood Pressure < 140/90 Blood Pressure 127/52(2022 8:09 AM FOOT SPECIALIST) No Alisa Jaramillo HEMOGLOBIN A1C < 7.0 Result Component 5.4( 1 12:00 AM CDT) No Alisa Jaramillo documented as of this encounter Visit Diagnoses Not on filedocumented in this encounter Care Teams Bow Maker Gift Wrapping Relationship Specialty Start Date End Date Etienne Florez MD Orthopedic Surgery 12/09/14 documented as of this encounter"
--- OUTSIDE RECORDS SUMMARY | 2024-05-26 12:44 | XMS_ITS | Encounter Summary ---
Author Organization [facility] Address [address] [place] [address] Care Team Providers Care Hyperbaric Nurse Name Role Phone Etienne Florez MD Unavailable Enrique Gonzalez MD Unavailable [phone] Theresa Camargo MD Primary Care Provider [phone] Nelson Ross MD Unavailable [phone] Laz Valencia MD Unavailable Russell Moran MD Unavailable Yuliya Ibarra MD Unavailable [phone] Phuong Callejas DPM Unavailable Sy Barrientos MD Unavailable Russell Moran MD Unavailable Rico Gasca MD Unavailable [phone] Elle Landaverde MD Unavailable [phone] Kirk Truong MD Unavailable [phone] Shira Love DO Unavailable [phone] Theresa Camargo MD Unavailable [phone] Brooke Haynes FERTILIZER LOADER-COPPER ETCHER Unavailable [phone] Theresa Camargo MD Unavailable [phone] Brooke Haynes FERTILIZER LOADER-COPPER ETCHER Unavailable [phone] Theresa Camargo MD Unavailable [phone] Reason for Visit * Reason Onset Date Comments MEDICATION REFILL 07/14/2017 Encounter Details Date Type Department Care Team (Late st Contact Info) Description 07/14/2017 Refill [facility] - Family Medicine [address] [place] [address] [address] [place] [address] Jarrell Garrison MD [address] [facility] [address] [place] [address] MEDICATION REFILL Social History Tobacco [...] * Telephone Encounter - Laisha Osman - 07/14/2017 11:11 AM CST Perla Leon is in need of Her Requested Prescriptions Pending Prescriptions Disp Refills ??? potassium chloride (KLOR-CON 10) 10 MEQ tablet 90 tablet 1 Sig: Take 1 tablet by mouth once daily Take 4 tabs with breakfast Person calling for the refill: Patient Last office visit 06/10/2017 Next Appointment scheduled: 07/31/2017 Last Refill for this medication 06/25/2017 Does patient have any new allergies since last office visit? No Was the pharmacy verified? Yes If this is a controlled substance was the Last 4 of SSN verified? NOT APPLICABLE (If unable to verify last 4 of SSN transfer to the clinic for further review) Patient stated she needs to request 90 day prescription from [facility] who needs authorization call ATIONS RESEARCH ANALYST documented in this encounter Plan of Treatment Not on file documented as of this encounter Goals Goal Patient Goal Type Associated Problems Recent Progress Patient-Stated? Author Blood Pressure < 140/90 Blood Pressure 127/52(2022 8:09 AM OPERATIONS RESEARCH ANALYST) No Alisa Jaramillo HEMOGLOBIN A1C < 7.0 Result Component 5.4( 12:00 AM CDT) No Alisa Jaramillo documented as of this encounter Visit Diagnoses Not on filedocumented in this encounter Care Teams Hyperbaric Nurse Relationship Specialty Start [place] [address] [place], [place] [id number] PCP - General Internal Medicine 03/31/18 05/30/22 [place] [address] [place] [address] PCP - Attributed-MSSP 04/18/19 06/18/19 Brooke Haynes APRN-COPPER ETCHER [address] [place] [address] PCP - Attributed-MSSP 06/19/19 07/17/19 [place] [address] [place] [address] PCP - Attributed-MSSP 07/18/19 10/17/19 Candelariakhang Brooke, FERTILIZER LOADER-COPPER ETCHER [address] [place] [address] PCP - Attributed-MSSP 10/18/19 11/16/19 [place] [address] [place] [address] PCP - Attributed-MSSP 11/17/19 02/16/20 Etienne Florez MD Orthopedic Surgery 12/09/14 [place] [address] [facility] [address] [facility] [address] [facility] [address] [place] [phone] Oncology 09/15/17 [place] [address] [facility] [address] [place] [phone] Neurology 06/26/18 [place] [address] [phone] Cardiovascular Disease 06/26/18 [place] [address] [address] Pulmonary Disease 06/26/18 Yuliya Ibarra MD [address] [place] [address] Endocrinology 06/26/18 Phuong Callejas DPM [address] [place] [address] Podiatry 06/26/18 Sy Barrientos MD [address] [place] [address] [place] [address] Ophthalmology 06/26/18 [place] [address] [address] Pulmonary Disease 06/26/18 Rico Gasca MD [address] [place] [address] Urology 06/26/18 Elle Landaverde MD [address] [place] [address] Vascular Surgery 06/26/18 Kirk Truong MD [address] [place] [address] Gastroenterology 06/26/18 [place] [address] [address] General Surgery 06/26/18 documented as of this encounter
--- OUTSIDE RECORDS SUMMARY | 2024-05-26 12:44 | XMS_ITS | Encounter Summary ---
Author Organization [facility] Address [address] [place] [address] Care Team Providers Care Peer Tutor Name Role Phone Etienne Florez MD Unavailable [phone] Reason for Visit * Reason Comments Follow-up knot on the head fro m a year ago Encounter Details Date Type Department Care Team (Late st Contact Info) Description 04/02/2017 1:15 PM SHALE PLANER OPERATOR HELPER Office Visit [facility] - Family Medicine [address] [place] [address] [address] [place] [address] Jarrell Garrison MD [address] [facility] [address] [place] [address] Lump of skin (Primary Dx) Social History Tobacco Use Types [...] Sign Reading Time Taken Comments Blood Pressure 138/62 04/02/2017 1:32 PM SHALE PLANER OPERATOR HELPER Pulse 57 04/02/2017 1:32 PM SHALE PLANER OPERATOR HELPER Temperature 36.5 ??C (97.7 ??F) 04/02/2017 1:32 PM CS T Respiratory Rate 16 04/02/2017 1:32 PM SHALE PLANER OPERATOR HELPER Oxygen Saturation 89% 04/02/2017 1:32 PM SHALE PLANER OPERATOR HELPER Inhaled Oxygen Concentration - - Weight 92.1 kg (203 lb) 04/02/2017 1:32 PM SHALE PLANER OPERATOR HELPER Height 165.1 cm (5' 5 ) 04/02/2017 1:32 PM SHALE PLANER OPERATOR HELPER Body Mass Index 33.78 04/02/2017 1:32 PM SHALE PLANER OPERATOR HELPER documented in this encounter Functional Status Functional [...] Progress Notes * Jarrell Garrison MD - 04/03/2017 1:18 PM CST Perla Leon 76 y.o. 04/02/2017. CHIEF COMPLAINT/HPI: Perla is here for follow-up visit today. She had a fall and facial injury 2 years ago. Which was treated appropriately in the hospital. Now she feels a lump on the right side of forehead once in a while. She felt a knot on the right side offorehead a week ago. No obvious deformity or swelling today. She has facial puffiness around the eyes. But no erythema or warmth. Denies any headache or changes in vision. PERSONAL HISTORY: Alcohol: social drinker Caffeine: 0 cups caffeine per day Tobacco: unknown tobacco use Salt: salt added to cooking Occupation: Exercise: rarely REVIEW OF SYSTEMS Reviewed PHYSICAL EXAMINATION General: Wt Readings from Last 3 Encounters: 04/02/17 92.1 kg (203 lb) 01/13/17 94.8 kg (209 lb) 12/28/16 96.2 kg (212 lb) Temp Readings from Last 3 Encounters: 04/02/17 97.7 ??F (Oral) 12/31/16 98.1 ??F 12/10/16 97.6 ??F (Oral) BP Readings from Last 3 Encounters: 04/02/17 138/62 01/13/17 144/62 12/31/16 140/63 Pulse Readings from Last 3 Encounters: 04/02/17 57 01/13/17 64 12/31/16 83 Body mass index is 33.78 kg/(m^2). General appearance - alert, well appearing, and in no distress Skin - bruising of the skin. No obvious lump felt on the forehead Eyes - pupils equal and reactive, extraocular [...] spasm or pain on motion Musculoskeletal - no joint tenderness, deformity or swelling Most Recent CBC Component Results Lab Results Component Value Date WBC 6.6 12/29/2016 RBC 4.54 12/29/2016 MCV 77.1 (L) 12/29/2016 MCH 23.8 (L) 12/29/2016 RDW 13.9 06/13/2016 GRANPCT 61.0 06/13/2016 LYMPHPCT 26.9 12/29/2016 MONOCYTPCT 12.9 12/29/2016 EOSINPCT 3.6 12/29/2016 BASOPHILPCT 0.6 12/29/2016 GRANABS 4.85 06/13/2016 LYMPHABS 1.77 12/29/2016 MONOCYTABS 0.85 12/29/2016 EOSINABS 0.24 12/29/2016 BASOABS 0.04 12/29/2016 Recent Labs Component Name 12/29/16 0121 12/28/16 1824 12/28/16 1814 06/13/16 1245 SODIUM 144 - 145 144 POTASSIUM 3.8 - 3.9 4.1 CHLORIDE 111* - 111* 108* CO2 27 - 27 27 BUN 14 - 17 18 CREATININE 0.91 0.87 0.97 0.81 GLUCOSE 181* - 132* 88 CALCIUM 8.8 - 9.7 10.3* ASSESSMENT: Encounter Diagnosis Name Primary? Lump of skin Yes PLAN: Careful observation for now. I do not see any obvious lump or asymmetry except skin folds around the eye. No pain reported. Willevaluate again next visit Medications Reviewed Jarrell Garrison MD E PLANER OPERATOR HELPER documented in this encounter Plan of Treatment Not on file documented as of this encounter Goals Goal Patient Goal Type Associated Problems Recent Progress Patient-Stated? Author Blood Pressure < 140/90 Blood Pressure 127/52(2022 8:09 AM SHALE PLANER OPERATOR HELPER) No Alisa Jaramillo HEMOGLOBIN A1C < 7.0 Result Component 5.4( 12:00 AM CDT) No Alisa Jaramillo documented as of this encounter Visit Diagnoses Diagnosis Lump of skin- Primary Localized superficial swelling, mass, or lump documented in this encounter Care Teams Peer Tutor Relationship Specialty Start Date End Date Etienne Florez MD Orthopedic Surgery 12/09/14 documented as of this encounter
--- OUTSIDE RECORDS SUMMARY | 2024-05-26 12:44 | XMS_ITS | Encounter Summary ---
Author Organization [facility] Address [address] [address] Care Team Providers Care Optimization Engineer Name Role Phone Etienne Florez MD Unavailable [phone] Reason for Visit * Reason Comments Pain Knee Encounter Details Date Type Department Care Team (Late st Contact Info) Description 04/18/2017 Telephone [facility] - Family Medicine [address] [place] [address] [address] [place] [address] Jarrell Garrison MD [address] [facility] [address] [phone] Pain Knee Social History Tobacco Use Types Packs/Day Years [...] * Telephone Encounter - Shayy Abraham - 04/21/2017 8:27 AM CST Looks like this was handled by Dr. Garrison T SPINNER * Telephone Encounter - Jarrell Garrison MD - 04/18/2017 5:08 PM CST Called and spoke to daughter. Patient is reporting acute knee pain and I advised her to proceed to ER for evaluation T SPINNER * Telephone Encounter - Camille Lin - 04/18/2017 4:32 PM CST Patients daughter states the patient is in a great deal of pain. Dianw is requesting not to make a $2000 trip to emergency room for pain medication. T SPINNER * Telephone Encounter - Alisa Jaramillo - 04/18/2017 2:44 PM CST Called and informed Bekah. Bekah asking if you can send in something for pain in the mean time? Please order if appropriate. Referral has been placed for patient T SPINNER * Telephone Encounter - Jarrell Garrison MD - 04/18/2017 2:30 PM CST Ok to refer to ortho if she likes T SPINNER * Telephone Encounter - Vinny Ahmadi - 04/18/2017 2:05 PM CST Patient's daughter called in to see if patient needs to come and see Dr. Garrison or if she just be referred out to an orthopedic for her left pain. She states that patient has had difficulty walking or moving it. Denies injury. Please advise. T SPINNER documented in this encounter Plan of Treatment Not on file documented as of this encounter Goals Goal Patient Goal Type Associated Problems Recent Progress Patient-Stated? Author Blood Pressure < 140/90 Blood Pressure 127/52(2022 8:09 AM RIVET SPINNER) No Alisa Jaramillo HEMOGLOBIN A1C < 7.0 Result Component 5.4( 12:00 AM CDT) No Alisa Jaramillo documented as of this encounter Visit Diagnoses Not on filedocumented in this encounter Care Teams Optimization Engineer Relationship Specialty Start Date End Date Etienne Florez MD Orthopedic Surgery 12/09/14 documented as of this encounter
--- OUTSIDE RECORDS SUMMARY | 2024-05-26 12:44 | XMS_ITS | Encounter Summary ---
Author Organization [facility] Health Address [address] [place] [address] Care Team Providers Care Manual Winder Name Role Phone Etienne Florez MD Unavailable [phone] Encounter Details Date Type Department Care Team (Late st Contact Info) Description 07/22/2017 4:23 PM SOW MANAGER - 07/22/2017 11:59 PM [facility] Hospital Encounter [facility] Health Imaging Services - Radiology [address] [place] [address] Jarrell Garrison MD [facility] [address] [place] [phone] Discharge Disposition: Home or Self Care Social [...] 4 tabs with breakfast 90 tablet 1 07/17/2017 07/23/2017 potassium chloride (KLOR-CON 10) 10 MEQ tablet [...] < 140/90 Blood Pressure 127/52(2022 8:09 AM SOW MANAGER) No Alisa Jaramillo HEMOGLOBIN A1C < 7.0 Result Component 5.4( 12:00 AM CDT) No Alisa Jaramillo documented as of this encounter Procedures Procedure Name Priority Date/Time Associated Diagnosis Comments XR ABDOMEN KUB Routine 07/22/2017 4:45 PM SOW MANAGER Constipation, unspecified constipation type documented in this encounter Results * XR ABDOMEN KUB (07/22/2017 4:45 PM SOW MANAGER) Anatomical Region Laterality Modality Abdomen Radiographic Mireya ging 07/22/2017 5:31 PM SOW MANAGER Impressions 07/22/2017 5:33 PM SOW MANAGER THERE IS A LARGE AMOUNT OF STOOL THROUGHOUT THE COURSE OF THE COLON, NOTED. Narrative 07/22/2017 5:33 PM SOW MANAGER ABDOMINAL PLAIN FILM INDICATION: Constipation FINDINGS: ??AP supine examination of the abdomen and pelvis, 2 images, 1639 hours, is reviewed without the benefit of prior studies. There are degenerative changes and there is a dextrocurvature of the lumbar spine. Bone density is decreased. There is a large amount of stool seen throughout the course of the colon. An ovoid opacity projects over the lower midline pelvis, indeterminate this is related to a urine filled bladder or stool in the rectum. I do not see any abnormally dilated small bowel loops. Multiple rounded calcific densities in lower pelvis are most consistent with phleboliths. Procedure Note Philip Hercules MD - 07/22/2017 ABDOMINAL PLAIN FILM INDICATION: Constipation FINDINGS: AP supine examination of the abdomen and pelvis, 2 images, 1639 hours, is reviewed without the benefit of prior studies. There are degenerative changes and there is a dextrocurvature of the lumbar spine. Bone density is decreased. There is a large amount of stool seen throughout the course of the colon. An ovoid opacity projects over the lower midline pelvis, indeterminate this is related to a urine filled bladder or stool in the rectum. I do not see any abnormally dilated small bowel loops. Multiple rounded calcific densities in lower pelvis are most consistent with phleboliths. IMPRESSION THERE IS A LARGE AMOUNT OF STOOL THROUGHOUT THE COURSE OF THE COLON, NOTED. Jarrell Garrison MD DIAGNOSTIC IMAGING O RDERABLES documented in this encounter Visit Diagnoses Diagnosis Constipation, unspecified constipation type documented in this encounter Care Teams Manual Winder Relationship Specialty Start Date End Date Etienne Florez MD Orthopedic Surgery 12/09/14 documented as of this encounter
--- OUTSIDE RECORDS SUMMARY | 2024-05-26 12:44 | XMS_ITS | Encounter Summary ---
Author Organization [facility] Address [address] [place] [address] Care Team Providers Care Chief Of Production Name Role Phone Etienne Florez MD Unavailable [phone] Enrique Gonzalez MD Unavailable [phone] Reason for Visit * Reason Onset Date Comments Update 06/18/2017 Letter for School or Work 06/18/2017 Encounter Details Date Type Department Care Team (Late st Contact Info) Description 06/18/2017 Telephone [facility] Medical [facility] - Family Medicine [address] [place] [address] [address] [place] [address] Jarrell Garrison MD [address] [facility] [address] [place] [address] Update; Letter for School or Work Social History Tobacco Use Types Packs/Day Years [...] * Telephone Encounter - Laisha Osman - 06/18/2017 11:32 AM CST Who is calling? self If other than self is caller listed on the HIPAA? No If caller is anyone other than listed above, where are they calling from? Na What is the reason for call? Patient called in to let the office know that she will drop the neededpaper work off tomorrow. Expected Response from the Clinic? ( ex. Call back, etc..) Call back Y CHIEF documented in this encounter Plan of Treatment Not on file documented as of this encounter Goals Goal Patient Goal Type Associated Problems Recent Progress Patient-Stated? Author Blood Pressure < 140/90 Blood Pressure 127/52(2022 8:09 AM PARTY CHIEF) No Alisa Jaramillo HEMOGLOBIN A1C < 7.0 Result Component 5.4( 12:00 AM CDT) No Alisa Jaramillo documented as of this encounter Visit Diagnoses Not on filedocumented in this encounter Care Teams Chief Of Production Relationship Specialty Start Date End Date Etienne Florez MD Orthopedic Surgery 12/09/14 [place] [address] [phone] Oncology 09/15/17 documented as of this encounter
--- OUTSIDE RECORDS SUMMARY | 2024-05-26 12:44 | XMS_ITS | Encounter Summary ---
Author Organization [facility] Address [address] [place] [address] Care Team Providers Care Server Support Technician Name Role Phone Etienne Florez MD Unavailable [phone] Encounter Details Date Type Department Care Team (Late st Contact Info) Description 04/24/2017 Orders Only [facility] Medical [facility] - Family Medicine [id number] [place] [address] [address] [place] [address] Jarrell Garrison MD [address] [facility] [address] [address] Arthritis of knee Social History Tobacco Use Types Packs/Day Years [...] encounter Progress Notes * Shayy Abraham - 04/24/2017 8:20 AM CST Please go into the encounter to job order clerk and sign off on order. CTOR OF INFECTION PREVENTION documented in this encounter Plan of Treatment Not on file documented as of this encounter Goals Goal Patient Goal Type Associated Problems Recent Progress Patient-Stated? Author Blood Pressure < 140/90 Blood Pressure 127/52(2022 8:09 AM DIRECTOR OF INFECTION PREVENTION) No Alisa Jaramillo HEMOGLOBIN A1C < 7.0 Result Component 5.4( 12:00 AM CDT) No Alisa Jaramillo documented as of this encounter Visit Diagnoses Diagnosis Arthritis of knee- Primary Unspecified arthropathy, lower leg documented in this encounter Care Teams Server Support Technician Relationship Specialty Start Date End Date Etienne Florez MD Orthopedic Surgery 12/09/14 documented as of this encounter
--- OUTSIDE RECORDS SUMMARY | 2024-05-26 12:44 | XMS_ITS | Encounter Summary ---
Author Organization [facility] Health Address [address] [address] Care Team Providers Care Policewoman Name Role Phone Etienne Florez MD Unavailable [phone] Reason for Visit * Reason Onset Date Comments Opened In Error 07/15/2017 Encounter Details Date Type Department Care Team (Late st Contact Info) Description 07/15/2017 Refill [facility] Medical [facility] - Family Medicine [address] [place] [address] [address] [place] [address] Jarrell Garrison MD [facility] [address] [address] Opened In Error Social History Tobacco [...] 140/90 Blood Pressure 127/52(2022 8:09 AM IRON INSTALLER) No Alisa Jaramillo HEMOGLOBIN A1C < 7.0 Result Component 5.4( 12:00 AM CDT) No Alisa Jaramillo documented as of this encounter Visit Diagnoses Not on filedocumented in this encounter Care Teams Policewoman Relationship Specialty Start Date End Date Etienne Florez MD Orthopedic Surgery 12/09/14 documented as of this encounter
--- OUTSIDE RECORDS SUMMARY | 2024-05-26 12:44 | XMS_ITS | Encounter Summary ---
Author Organization [facility] Address [address] [place] [address] Care Team Providers Care Loader Operator Name Role Phone Etienne Florez MD Unavailable [phone] Reason for Visit * Reason Comments Medication Check Encounter Details Date Type Department Care Team (Late st Contact Info) Description 06/10/2017 10:45 AM MANAGER TELEMARKETING Office Visit [facility] - Family Medicine [address] [place] [address] [address] [place] [address] Jarrell Garrison MD [facility] [address] [phone] Type 2 diabetes mellitus without complication, with long-term current use of insulin (HCC) (Primary Dx); HSP (hereditary spastic paraplegia) (HCC); Long-term insulin use (HCC); Uncomplicated asthma, unspecified asthma severity, unspecified whether persistent (HCC); Essential hypertension; Sleep apnea, unspecified type; Mixed hyperlipidemia; Breast cancer screening Social History Tobacco Use Types Packs/Day Years [...] Sign Reading Time Taken Comments Blood Pressure 122/58 06/10/2017 11:06 AM MANAGER TELEMARKETING Pulse 81 06/10/2017 11:06 AM MANAGER TELEMARKETING Temperature 36.6 ??C (97.8 ??F) 06/10/2017 11:[address] Respiratory Rate 16 06/10/2017 11:06 AM MANAGER TELEMARKETING Oxygen Saturation 91% 06/10/2017 11:06 AM MANAGER TELEMARKETING Inhaled Oxygen Concentration - - Weight 96.2 kg (212 lb) 06/10/2017 11:06 AM MANAGER TELEMARKETING Height 165.1 cm (5' 5 ) 06/10/2017 11:06 AM MANAGER TELEMARKETING Body Mass Index 35.28 06/10/2017 11:06 AM MANAGER TELEMARKETING documented in this encounter Functional Status Functional [...] Progress Notes * Jarrell Garrison MD - 06/18/2017 7:54 AM CST Perla Leon 76 y.o. 06/10/2017. CHIEF COMPLAINT/HPI: Follow up visit today Diabetes controlled Htn needs better control Hld statin Hsp seeing neurology Major cpap ? Non smoker Previous Tia . Vision okay PERSONAL HISTORY: Alcohol: social drinker Caffeine: 0 cups caffeine per day Tobacco: unknown tobacco use Salt: salt added to cooking Occupation: Exercise: rarely REVIEW OF SYSTEMS Reviewed PHYSICAL EXAMINATION General: Wt Readings from Last 3 Encounters: 06/10/17 96.2 kg (212 lb) 04/14/17 93 kg (205 lb) 04/02/17 92.1 kg (203 lb) Temp Readings from Last 3 Encounters: 06/10/17 97.8 ??F (Oral) 04/02/17 97.7 ??F (Oral) 12/31/16 98.1 ??F BP Readings from Last 3 Encounters: 06/10/17 122/58 04/14/17 160/82 04/02/17 138/62 Pulse Readings from Last 3 Encounters: 06/10/17 81 04/14/17 92 04/02/17 57 Body mass index is 35.28 kg/(m^2). General appearance - alert, well appearing, [...] nondistended, no masses or organomegaly Extremeties - Edema Periph. Vascular - both carotids normal upstroke [...] Results Lab Results Component Value Date WBC 8.2 06/12/2017 RBC 4.91 06/12/2017 MCV 75.8 (L) 06/12/2017 MCH 22.8 (L) 06/12/2017 RDW 18.8 (H) 06/12/2017 GRANPCT 61.0 06/13/2016 LYMPHPCT 26.9 12/29/2016 MONOCYTPCT 12.9 12/29/2016 EOSINPCT 3.6 12/29/2016 BASOPHILPCT 0.6 12/29/2016 GRANABS 4.85 06/13/2016 LYMPHABS 1.77 12/29/2016 MONOCYTABS 0.85 12/29/2016 EOSINABS 0.24 12/29/2016 BASOABS 0.04 12/29/2016 Recent Labs Component Name 06/12/17 0823 12/29/16 0121 12/28/16 1824 12/28/16 1814 SODIUM 141 144 - 145 POTASSIUM 3.5 3.8 - 3.9 CHLORIDE 102 111* - 111* CO2 31 27 - 27 BUN 15 14 - 17 CREATININE 0.92 0.91 0.87 0.97 GLUCOSE 90 181* - 132* CALCIUM 10.4 8.8 - 9.7 ASSESSMENT: Encounter Diagnoses Name Primary? Type 2 diabetes mellitus without complication, with long-term current use of insulin Yes ??? HSP (hereditary spastic paraplegia) ??? Long-term insulin use ??? Uncomplicated asthma, unspecified asthma severity, unspecified whether persistent ??? Essential hypertension ??? Sleep apnea, unspecified type ??? Mixed hyperlipidemia ??? Breast cancer screening PLAN: Orders Placed This Encounter ??? CBC W AUTO DIFFERENTIAL ??? COMPREHENSIVE METABOLIC PANEL ??? LIPID PROFILE (LIPID PANEL) Endo follow up Medications Reviewed Jarrell Garrison MD GER TELEMARKETING * Shayy Abraham - 06/10/2017 11:18 AM CST BP 122/58 (BP SITE: RIGHT ARM, BP POSITION: SITTING, BP CUFF SIZE: Adult) Pulse 81 Temp 97.8 ??F (Oral) Resp 16 Ht 1.651 m (5' 5 ) Wt 96.2 kg (212 lb) SpO2 91% BMI 35.28 kg/m2 Screenings Future Falls: Have you fallen in the last year?: (!) Yes (document or confirm fall details are in the medical history) Fall >2 x or injured from the fall?: No Depression: PHQ-2:TOTAL POINT SCORE: 0 PHQ-9: GER TELEMARKETING documented in this encounter Plan of Treatment Not on file documented as of this encounter Goals Goal Patient Goal Type Associated Problems Recent Progress Patient-Stated? Author Blood Pressure < 140/90 Blood Pressure 127/52(2022 8:09 AM MANAGER TELEMARKETING) No Alisa Jaramillo HEMOGLOBIN A1C < 7.0 Result Component 5.4( 12:00 AM CDT) No Alisa Jaramillo documented as of this encounter Procedures Procedure Name Priority Date/Time Associated Diagnosis Comments CBC W AUTO DIFFERENTIAL Routine 06/12/2017 8:23 AM MANAGER TELEMARKETING Essential hypertension COMPREHENSIVE METABOLIC PANEL Routine 06/12/2017 8:23 AM MANAGER TELEMARKETING Essential hypertension LIPID PROFILE Routine 06/12/2017 8:23 AM MANAGER TELEMARKETING Type 2 diabetes mellitus without complication, with long-term current use of insulin (HCC) Mixed hyperlipidemia documented in this encounter Results * (ABNORMAL) LIPID PROFILE (LIPID PANEL) (06/12/2017 8:23 AM MANAGER TELEMARKETING) Cholesterol 113 <200 mg/dL [facility] HDL Cholesterol 35(L) >50 mg/dL [facility] Triglycerides 148 <150 mg/dL [facility] LDL Calculated 55 mg/dL (calc) [facility] Comment: Reference range: <100 Desirable range <100 mg/dL for patients with CHD or diabetes and <70 mg/dL for diabetic patients with known heart disease. LDL-C is now calculated using the Puneet-Jaxson calculation, which is a validated novel method providing better accuracy than the Friedewald equation in the estimation of LDL-C. Puneet SS et al. MAYRA. 2013;310(19): 5572-2653 (http://education.AirKast.Cryptic Software/faq/ZOS186) CHOL/HDLC RATIO 3.2 <5.0 (calc) [facility] Non HDL Cholesterol 78 <130 mg/dL (calc) [facility] Comment: For patients with diabetes plus 1 major ASCVD risk factor, treating to a non-HDL-C goal of <100 mg/dL (LDL-C of <70 mg/dL) is considered a therapeutic option. Test Performed at: [facility] [address] [place] ??[phone] ELIE HAMLIN DO,MPH Blood BLOOD SPECIMEN / Unknown 06/12/2017 8:23 AM MANAGER TELEMARKETING 06/12/2017 8:25 AM MANAGER TELEMARKETING Jarrell Garrison MD LAB - CHEMISTRY [place] [address] [facility] [address] [place] [address] * COMPREHENSIVE METABOLIC PANEL (06/12/2017 8:23 AM MANAGER TELEMARKETING) Glucose 90 65 - 99 mg/dL [facility] Comment: ? Fasting reference interval BUN 15 7 - 25 mg/dL [facility] Creatinine 0.92 0.60 - 0.93 mg/dL [facility] Comment: For patients >49 years of age, the reference limit for Creatinine is approximately 13% higher for people identified as -Colombian. eGFR by MDRD 60 > OR = 60 mL/min/1 .73m2 [facility] eGFR by MDRD 69 > OR = 60 mL/min/1 .73m2 [facility] BUN/Creatinine Ratio NOT APPLICABLE 6 - 22 (calc) [facility] Sodium 141 135 - 146 mmol/L [facility] Potassium 3.5 3.5 - 5.3 mmol/L [facility] Chloride 102 98 - 110 mmol/L [facility] CO2 31 20 - 31 mmol/L [facility] Calcium 10.4 8.6 - 10.4 mg/dL [facility] Protein Total 6.6 6.1 - 8.1 g/dL [facility] Albumin 4.2 3.6 - 5.1 g/dL [facility] Globulin Total 2.4 1.9 - 3.7 g/dL (calc) [facility] Albumin/Globulin Ratio 1.8 1.0 - 2.5 (calc) [facility] Bilirubin Total 0.4 0.2 - 1.2 mg/dL [facility] Alkaline Phosphatase 90 33 - 130 U/L [facility] AST 17 10 - 35 U/L [facility] ALT 21 6 - 29 U/L [facility] Comment: Test Performed at: [facility] [address] ??[phone] ELIE HAMLIN DO,MPH Blood BLOOD SPECIMEN / Unknown 06/12/2017 8:23 AM MANAGER TELEMARKETING 06/12/2017 8:25 AM MANAGER TELEMARKETING Jarrell Garrison MD LAB - CHEMISTRY [address] [facility] [address] [place] [address] * (ABNORMAL) CBC W AUTO DIFFERENTIAL (06/12/2017 8:23 AM MANAGER TELEMARKETING) White Blood Cell Count 8.2 3.8 - 10.8 Thousand/u L [facility] RBC 4.91 3.80 - 5.10 Million/uL [facility] Hemoglobin 11.2(L) 11.7 - 15.5 g/dL [facility] Hematocrit 37.2 35.0 - 45.0 % [facility] MCV 75.8(L) 80.0 - 100.0 fL [facility] MCH 22.8(L) 27.0 - 33.0 pg [facility] MCHC 30.1(L) 32.0 - 36.0 g/dL [facility] RDW 18.8(H) 11.0 - 15.0 % [facility] Platelet Count 425(H) 140 - 400 Thousand/u L [facility] MPV 10.4 7.5 - 12.5 fL [facility] Neutrophil Absolute 5256 1500 - 7800 cells/uL [facility] Lymphocytes Absolute 1665 850 - 3900 cells/uL [facility] Absolute Monocytes 935 200 - 950 cells/uL [facility] Eosinophils Absolute 287 15 - 500 cells/uL [facility] Basophils Absolute 57 0 - 200 cells/uL [facility] Granulocytes % 64.1 % [facility] Lymphocytes % 20.3 % [facility] Monocytes % 11.4 % [facility] Eosinophils % 3.5 % [facility] Basophils % 0.7 % [facility] Comment: REPORT COMMENT: FASTING:YES Test Performed at: [facility] ??[phone] ELIE HAMLIN DO,MPH Blood BLOOD SPECIMEN / Unknown 06/12/2017 8:23 AM MANAGER TELEMARKETING 06/12/2017 8:25 AM MANAGER TELEMARKETING Jarrell Garrison MD LAB - HEMATOLOGY ORD ERABLES Performing Organization Address City/State/[facility] Co de Phone Number [facility] [address] [phone] documented in this encounter Visit Diagnoses Diagnosis Type 2 diabetes mellitus without complication, with long-term current use of insulin (HCC)- Primary 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
--- OUTSIDE RECORDS SUMMARY | 2024-05-26 12:44 | XMS_ITS | Encounter Summary ---
Author Organization [facility] Address [address] [place] [address] Care Team Providers Care Corn Detasseler Name Role Phone Etienne Florez MD Unavailable [phone] Enrique Gonzalez MD Unavailable [phone] Theresa Camargo MD Primary Care Provider [phone] Nelson Ross MD Unavailable Laz Valencia MD Unavailable Russell Moran MD Unavailable Yuliya Ibarra MD Unavailable [phone] Phuong Callejas DPM Unavailable Sy Barrientos MD Unavailable [phone] Russell Moran MD Unavailable Rico Gasca MD Unavailable Elle Landaverde MD Unavailable [phone] Kirk Truong MD Unavailable [phone] Shira Love DO Unavailable [phone] Theresa Camargo MD Unavailable [phone] Brooke Haynes COTTAGE SUPERVISOR-ELECTRIC MOTORS SALESPERSON Unavailable [phone] Theresa Camargo MD Unavailable CandelariaBrooke quiñonez COTTAGE SUPERVISOR-ELECTRIC MOTORS SALESPERSON Unavailable [phone] Theresa Camargo MD Unavailable Reason for Visit * Reason Onset Date Comments MEDICATION REFILL 07/17/2017 Encounter Details Date Type Department Care Team (Late st Contact Info) Description 07/17/2017 Refill [facility] - Family Medicine [address] [place] [address] [address] [place] [address] Jarrell Garrison MD [address] [facility] [address] [place] [address] MEDICATION REFILL Social History Tobacco [...] * Telephone Encounter - Sahra Avalos - 07/17/2017 8:35 AM CST Perla Leon is in need of Her Requested Prescriptions Pending Prescriptions Disp Refills ??? potassium chloride (KLOR-CON 10) 10 MEQ tablet 90 tablet 1 Sig: Take 1 tablet by mouth once daily Take 4 tabs with breakfast Person calling for the refill: Patient Last office visit 06/10/17 Next Appointment scheduled: 07/22/2017 Last Refill for this medication 07/14/17 Does patient have any new allergies since last office visit? No Was the pharmacy verified? Yes If this is a controlled substance was the Last 4 of SSN verified? NOT APPLICABLE (If unable to verify last 4 of SSN transfer to the clinic for further review) Patient states that she will need a supply sent to [facility] as well until she receive her medication from [facility], stating that she is completely out. GER MOLECULAR documented in this encounter Plan of Treatment Not on file documented as of this encounter Goals Goal Patient Goal Type Associated Problems Recent Progress Patient-Stated? Author Blood Pressure < 140/90 Blood Pressure 127/52(2022 8:09 AM MANAGER MOLECULAR) No Alisa Jaramillo HEMOGLOBIN A1C < 7.0 Result Component 5.4( 12:00 AM CDT) No Alisa Jaramillo documented as of this encounter Visit Diagnoses Not on filedocumented in this encounter Care Teams Corn Detasseler Relationship Specialty [place] [address] [address] [place], [place] [id number] PCP - General Internal Medicine 03/31/18 05/30/22 [place] [address] [address] [place] [address] PCP - Attributed-MSSP 04/18/19 06/18/19 Brooke Haynes, COTTAGE SUPERVISOR-ELECTRIC MOTORS SALESPERSON [address] [address] [place], [place] [id number] PCP - Attributed-MSSP 06/19/19 07/17/19 [place] [address] [facility] [address] [place] [address] PCP - Attributed-MSSP 07/18/19 10/17/19 Brooke Haynes, COTTAGE SUPERVISOR-ELECTRIC MOTORS SALESPERSON [address] [facility] [address] [place] [address] PCP - Attributed-MSSP 10/18/19 11/16/19 [place] [address] [facility] [address] [place] [address] PCP - Attributed-MSSP 11/17/19 02/16/20 Etienne Florez MD Orthopedic Surgery 12/09/14 [place] [address] [facility] [address] [place] [phone] Oncology 09/15/17 [place] [address] [facility] [address] [place] [phone] Neurology 06/26/18 [place] [address] [address] Cardiovascular Disease 06/26/18 [place] [address] [address] Pulmonary Disease 06/26/18 Yuliya Ibarra MD [address] [place] [phone] Endocrinology 06/26/18 Phuong Callejas DPM [address] [place], [place] [phone] Podiatry 06/26/18 Sy Barrientos MD [address] [place] [address] Ophthalmology 06/26/18 [place] [address] [id number] Pulmonary Disease 06/26/18 Rico Gasca MD [address] [place] [address] Urology 06/26/18 Elle Landaverde MD [address] [place] [address] Vascular Surgery 06/26/18 Kirk Truong MD [address] [place] [address] Gastroenterology 06/26/18 [place] [address] [place] [address] [place] [phone] General Surgery 06/26/18 documented as of this encounter
--- OUTSIDE RECORDS SUMMARY | 2024-05-26 12:44 | XMS_ITS | Encounter Summary ---
Author Organization [facility] Address [address] [place] [address] Care Team Providers Care Locker Room Clerk Name Role Phone Etienne Florez MD Unavailable [phone] Reason for Visit * Reason Onset Date Comments URI 05/13/2017 Encounter Details Date Type Department Care Team (Late st Contact Info) Description 05/13/2017 Telephone [facility] - Family Medicine [address] [place] [address] [address] [place] [address] Jarrell Garrison MD [facility] [address] [id number] URI Social History Tobacco Use Types Packs/Day [...] Miscellaneous Notes * Telephone Encounter - Marianela Corona LPN - 05/13/2017 12:44 PM ASSISTANT GOLF COACH Patient aware. STANT GOLF COACH * Telephone Encounter - Ofe Fitzgerald Jr., MD - 05/13/2017 12:07 PM ASSISTANT GOLF COACH Antibiotic and cough pill sent to local pharmacy STANT GOLF COACH * Telephone Encounter - Milton Naidu - 05/13/2017 11:35 AM CST Background: last upper respiratory infection: 1 year ago Assessment: Duration: 3-4 days Cough sx: yes Nasal/Sinus sx: none Ear sx: none Throat/Neck sx: sore throat Fever: yes and temp: 98.7 Headache: none Therapies tried and results: Benadryl Patient Request/Expectations: Pt is requesting an antibiotic and cough medication to be sent out. STANT GOLF COACH documented in this encounter Plan of Treatment Not on file documented as of this encounter Goals Goal Patient Goal Type Associated Problems Recent Progress Patient-Stated? Author Blood Pressure < 140/90 Blood Pressure 127/52(2022 8:09 AM ASSISTANT GOLF COACH) No Alisa Jaramillo HEMOGLOBIN A1C < 7.0 Result Component 5.4( 12:00 AM CDT) No Alisa Jaramillo documented as of this encounter Visit Diagnoses Not on filedocumented in this encounter Care Teams Locker Room Clerk Relationship Specialty Start Date End Date Etienne Florez MD Orthopedic Surgery 12/09/14 documented as of this encounter
--- OUTSIDE RECORDS SUMMARY | 2024-05-26 12:44 | XMS_ITS | Encounter Summary ---
Author Organization [facility] Address [address] [place] [address] Care Team Providers Care Wind Energy Technician Name Role Phone Etienne Florez MD Unavailable [phone] Reason for Visit * Reason Comments Follow-up constipation issues - seems to be getting worst Encounter Details Date Type Department Care Team (Late st Contact Info) Description 07/22/2017 3:00 PM ASSOCIATE WEB DEVELOPER Office Visit [facility] - Family Medicine [address] [place] [address] [address] [place] [address] Jarrell Garrison MD [id number] [facility] [address] [place] [address] Constipation, unspecified constipation type (Primary Dx) Social History Tobacco Use [...] Sign Reading Time Taken Comments Blood Pressure 130/64 07/22/2017 3:11 PM ASSOCIATE WEB DEVELOPER Pulse 88 07/22/2017 3:11 PM ASSOCIATE WEB DEVELOPER Temperature 36.8 ??C (98.3 ??F) 07/22/2017 3:11 PM CS T Respiratory Rate 16 07/22/2017 3:11 PM ASSOCIATE WEB DEVELOPER Oxygen Saturation 91% 07/22/2017 3:11 PM ASSOCIATE WEB DEVELOPER Inhaled Oxygen Concentration - - Weight 95.2 kg (209 lb 12.8 oz) 07/22/2017 3:11 PM ASSOCIATE WEB DEVELOPER Height 165.1 cm (5' 5 ) 07/22/2017 3:11 PM ASSOCIATE WEB DEVELOPER Body Mass Index 34.91 07/22/2017 3:11 PM ASSOCIATE WEB DEVELOPER documented in this encounter Functional Status Functional [...] Progress Notes * Jarrell Garrison MD - 08/03/2017 8:40 PM CDT Perla Edward 76 y.o. 07/22/2017. CHIEF COMPLAINT/HPI: Follow up visit today Reports constipation. Worsening. Denies abdominal pain. No nausea or vomiting reported. Chronic issue. PERSONAL HISTORY: Alcohol: none Caffeine: 0 cups caffeine per day Tobacco: unknown tobacco use Salt: salt added to cooking Occupation: Exercise: rarely REVIEW OF SYSTEMS Reviewed PHYSICAL EXAMINATION General: Wt Readings from Last 3 Encounters: 07/22/17 95.2 kg (209 lb 12.8 oz) 06/10/17 96.2 kg (212 lb) 04/14/17 93 kg (205 lb) Temp Readings from Last 3 Encounters: 07/22/17 98.3 ??F (Oral) 06/10/17 97.8 ??F (Oral) 04/02/17 97.7 ??F (Oral) BP Readings from Last 3 Encounters: 07/22/17 130/64 06/10/17 122/58 04/14/17 160/82 Pulse Readings from Last 3 Encounters: 07/22/17 88 06/10/17 81 04/14/17 92 Body mass index is 34.91 kg/(m^2). General appearance - alert, well appearing, [...] Pulses Bruits Neurological - alert, oriented, normal speech. Back exam - full range of motion, [...] Component Name 06/12/17 0823 12/29/16 0121 12/28/16 1814 SODIUM 141 144 145 POTASSIUM 3.5 3.8 3.9 CHLORIDE 102 111* 111* CO2 31 27 27 BUN 15 14 17 CREATININE 0.92 0.91 0.97 GLUCOSE 90 181* 132* CALCIUM 10.4 8.8 9.7 ASSESSMENT: Encounter Diagnosis Name Primary? Constipation, unspecified constipation type Yes PLAN: Orders Placed This Encounter ??? XR ABDOMEN KUB Standing Status: Future Number of Occurrences: 1 Standing Expiration Date: 07/22/2018 Order Specific Question: Exam to be performed? Answer: Per Radiologist protocol ??? lubiprostone (AMITIZA) 24 MCG capsule Sig: Take 1 capsule by mouth daily with breakfast Dispense: 30 capsule Refill: 0 Medications Reviewed Jarrell Garrison MD documented in this encounter Plan of Treatment Not on file documented as of this encounter Goals Goal Patient Goal Type Associated Problems Recent Progress Patient-Stated? Author Blood Pressure < 140/90 Blood Pressure 127/52(2022 8:09 AM ASSOCIATE WEB DEVELOPER) No Alisa Jaramillo HEMOGLOBIN A1C < 7.0 Result Component 5.4( 12:00 AM CDT) No Alisa Jaramillo documented as of this encounter Results * XR ABDOMEN KUB (07/22/2017 4:45 PM ASSOCIATE WEB DEVELOPER) Anatomical Region Laterality Modality Abdomen Radiographic Mireya ging 07/22/2017 5:31 PM ASSOCIATE WEB DEVELOPER Impressions 07/22/2017 5:33 PM ASSOCIATE WEB DEVELOPER THERE IS A LARGE AMOUNT OF STOOL THROUGHOUT THE COURSE OF THE COLON, NOTED. Narrative 07/22/2017 5:33 PM ASSOCIATE WEB DEVELOPER ABDOMINAL PLAIN FILM INDICATION: Constipation FINDINGS: ??AP [...] encounter Visit Diagnoses Diagnosis Constipation, unspecified constipation type- Primary Constipation, unspecified constipation type documented in this encounter Care Teams Wind Energy Technician Relationship Specialty Start Date End Date Etienne Florez MD Orthopedic Surgery 12/09/14 documented as of this encounter
--- OUTSIDE RECORDS SUMMARY | 2024-05-26 12:44 | XMS_ITS | Encounter Summary ---
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 3) MR brain with contrast To further characterize the white matter lesions. visualized no enhancinglesions, rad report pending. cta reports patent carotid arteries, beading of posterior cerebral artery suspecting arthrosclerosis disease, pt had no headache. Obtain labs, reviewed unremarkable with elevated b12,folate.; normal ck. continue aspirin Plavix statin.ldl normal. Neurochecks. Please call for any neurological concerns. f-u Dr. Ross. Can be d/georgina from neurol standpoint. D/w RN. PT/ot Other medical management per primary team. Thank you so much! Crow Campos MD PhD * Pinky Landa M - 12/31/2016 8:04 AM CDT Problem: Mobility Goal: Patient???s mobility/activity will be maintained as optimum level for age, diagnosis and physical limitations Perla Leon will return back to her baseline within the next 48 hours Outcome: Ongoing Patient able to get up to bathroom and walk with her walker Problem: Low Fall Risk (Score 7-10) Goal: Patient will have lower fall risk. Outcome: Ongoing Patient's bed will remain locked and in lowest position Goal: Patient/family will understand fall prevention measures. Outcome: Ongoing Patient knows to use call light when she needs to get up Problem: Medication Assessment Greater than/Equal 2 Goal: Patient will dangle prior to getting out of bed. Outcome: Ongoing Patient rises slowly from bed * Nilay Garcia - 12/31/2016 7:37 AM CDT Attempted to see pt. Pt declines PT this AM due to not feeling well has states I feel real shaky inside and can't do therapy right now . Will follow up at a later time. Nilay Garcia, SPT 12/31/16 * Nadja Curry, RN - 12/31/2016 4:08 AM CDT Problem: Low Fall Risk (Score 7-10) Goal: Patient will remain as independent as possible. Outcome: Ongoing Pt aware to call for help when needed. Will monitor. * Pinky Landa - 12/30/2016 5:49 PM CDT Patient AOx4. Patient reported mild lower back pain that went away with repositioning, has lidocaine patch ordered to try when pain picks back up again. Left side is weaker than right side. Patient gets up to the bathroom with her walker. Patient was up in chair today and worked with PT. MRI today. Pinky Landa 12/30/2016 5:51 PM * Cindy Maza OT - 12/30/2016 4:01 PM CDT Chart reviewed and Occupational Therapy Evaluation completed. 76 y/o female admitted with L LE weakness. Significant PMH of Familial spastic paraplegia - pt reports she cannot feel her legs. She also wears full leg wraps that she describes as air pumps. She reports she wears them 2x/day at home to help with her lymphatic edema. Subjective: Spouse present and supportive - provides PLOF prior to pt arriving back from MRI. Once back in room, pt reports no pain - she feels her L LE weakness is improving and she wants to walk out into the schmitt. 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 She even dons her compression stockings. She reports her cannot assist her due to his vertigo when he bends over. Spouse reports pt has had several falls at home - and sometimes forgets to bring her walker with her. Discussed with pt and spouse the possible need for tub transfer bench. Pt reports increased difficulty stepping into tub. Type of Residence: Private Residence Lives with:: Spouse Home Structure: Two story, live on 1st floor (tub/shower - increased difficulty using) Mobility: Ambulate-In Home ;With Assistive Device;With Supervision Equipment At Home: Wheelchair-Standard;Walker-2 Wheeled;Chair-Shower;Grab Bars (scooter), 4ww with seat Occupational Therapy Evaluation Summary: Cognition: Follows Commands-Consistent;Attention/concentration-normal for age;Processing-Appropriate;Judgement-decreased;Safety awareness-decreased;Memory impairment-short term Orientation Level: Oriented X4 Level of Consciousness-Adult: Alert Participation: Active Participation Strength: RUE Assessment: Within Defined Limits LUE Assessment: Within Defined Limits Balance: She walked in schmitt with 2ww 70 feet with Min A ADLs/Functional Mobility: Feeding: Complete [place] Oral Facial Hygiene: Supervision, Set-Up, Cues Upper Body Dressing: Supervision, Set-Up, Cues Lower Body Dressing: Moderate Assistance Toileting: Moderate Assistance (assist stand balance and hygiene) Sit to Stand: Minimal Assistance Stand to Sit: Minimal Assistance Toilet Transfers: Minimal Assistance (BSC to bed) OT Assessment: Patient/Family goals: increased strength and independence Impairment of: ADL Function and Transfers/Mobility Due to: Decreased endurance, Decreased UE Strength/coordination, Decreased balance, Impaired safetyawareness Please refer to Filed Flowsheet OT Evaluation for further details. Patient left in reach of call light and phone. Recommendations: Would benefit from home health therapy Pt would benefit from continued OT services at next level of care for maximal independence with ADLs, to increase functional endurance/strength, functional transfers, and to return to PLOF. If this is the last OT visit, this note serves as the discharge summary. LUIS DangeloR/Jason Ascom: [phone] * Karma Hendrix, PT - 12/30/2016 2:52 PM CDT Attempted to see pt this PM; however, pt is currently JUAN. Per OT, family left a note requesting that PT address compression wraps for pt's legs, stating she has not worn them since Friday and is supposed to wear them daily. Unsure what type of wrap family is referencing - pt's stated that the pt's daughter would know more. Karma Hendrix, PT, DPT [facility] [phone] * Sherlyn Casiano MD - 12/30/2016 11:46 AM CDT Hospitalist Progress Note Admit Date: 12/28/2016 5:54 PM Hospital Day: 2 Clinical Course Pt continues to have LLE weakness Has not worsened she says Able to walk with walker Vitals: 12/29/16 2354 12/30/16 0451 12/30/16 0458 12/30/16 0854 BP: 159/67 162/78 Pulse: 94 83 84 89 Resp: 18 18 Temp: 97.8 ??F 97.5 ??F SpO2: 93% 93% Weight: Temp (30hrs) Max:98.4 ??F My review of labs, imaging, notes and other tests is significant for Recent Labs Component Name 12/29/16 0121 12/28/16 1814 06/13/16 1245 WBC 6.6 7.6 8.0 HGB 10.8* 11.5* 13.9 HCT 35.0* 37.1 43.1 PLTCOUNT 290 318 418* Recent Labs Component Name 12/29/16 0121 12/28/16 1824 12/28/16 1814 06/13/16 1245 SODIUM 144 - 145 144 POTASSIUM 3.8 - 3.9 4.1 CHLORIDE 111* - 111* 108* CO2 27 - 27 27 BUN 14 - 17 18 CREATININE 0.91 0.87 0.97 0.81 GLUCOSE 181* - 132* 88 CALCIUM 8.8 - 9.7 10.3* Exam General appearance: alert, cooperative, no distress Heart: regular rhythm, normal S1 and S2, without murmurs, rubs or gallops Lungs: breath sounds normal and symmetric; no rales or wheezes Abdomen: soft without mass, non-tender, with normal bowel sounds Extremities: no clubbing, cyanosis or edema ZINC MINER. Alert and oriented x 3. Cranial nerves 2-12 grossly normal. Strength is 2 / 5 in left lower extremity unchanged from yesterday Assessment and Plan Records available in chart ( paper and electronic) were reviewed. 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 Stroke neuro has cleared pt General neuro on board Continue aspirin and Plavix and statin History of AFib Currently in sinus rhythm Currently on Tambocor Patient is not on oral anticoagulation Diabetes mellitus Continue sliding scale insulin Add Lantus 7 units Hold Jardiance, Januvia and glimepiride in the hospital accuchecks BS is ok History of heriditary spastic paraplegia Fall precaution PT OT will be initiated May benefit from going to a prison facility Social service will be contacted DVT prophylaxis With Lovenox GI prophylaxis with Protonix Spent 20 mins with patient Went through pts meds in detail Explained in detail about diagnosis Possible dc in 1 to 2 days if possible to snf Due to ongoing medical problems pt need to be in hospital for at 2 [place] Treatment plan discussed with patient at bedside. All questions were * Bonny Jaramillo RN - 12/30/2016 10:59 AM CDT [facility] Case Management Initial Assessment Case Management screen completed, welcome letter given. Met with patient, spouse and daughter Lives with Lives with:: Spouse Prior Level of Functioning: Independent with mobility and self care, lives in one level home with spouse. Uses cane, WW and scooter. Daughter is requesting pt get HHC at discharge. 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 Anticipated Discharge Date: Anticipated Discharge Date: 12/31/16 Transportation at discharge: Transportation at discharge: Family Transportation to MD appointments: family Equipment at Home: Equipment At Home: Wheelchair-Standard;Walker-2 Wheeled;Chair-Shower;Grab Bars (scooter) PCP: Jarrell Garrison MD If no PCP, action taken: Physician Followup Appointment(s) Made: No Reason why no appointment was made with physician: Appointment already made Pharmacy benefit: Yes. If no, action taken: SW Referral: no LACE SCORE: If there is no score indicated, this patient has yet to be assessed for Readmission Risk. . If the patient has been assessed, the score is:Readmit Risk Score Total: 10 If patient requires HHC at discharge, he/she requests: [facility] Will continue to follow. For any questions or needs please contact: [employer] Name/Phone number: Bonny Jaramillo CM [phone], pager [phone] * Crow Campos MD - 12/30/2016 9:11 AM CDT Neurology Progress Note Hospital Day: 2 CC:left leg weakness Subjective: No acute event overnight. No seizure-like events. The patient denies headaches, new weakness, numbness, double-vision, slurred speech. Still has leg weakness. Review of system: No fever, no shortness of breath. Past Medical History: Diagnosis Date ??? Broken ankle 12/19/2003 ??? Duodenal ulcer, unspecified as acute or chronic, without hemorrhage, perforation, or obstruction 1977 ??? Familial spastic paraplegia 1979 ??? Fracture of sacrum 05/1999 [facility] ??? Glaucoma 06/2003 ??? Heart murmur 01/27/2004, 03/13/2004 ??? Lymphatic edema ??? Partial seizures 2000 ??? Pneumonia 1989, 08/2005, 07/2010 ??? TIA (transient ischemic attack) 2000, 08/11/2008 [...] ??? Not on file Social History Narrative No family history on file. MEDICATIONS FOR CURRENT ENCOUNTER: ?? SCHEDULED MEDICATIONS: ?? amitriptyline (ELAVIL) tablet 25 mg, Oral, AT BEDTIME ?? amLODIPine (NORVASC) tablet 10 mg, Oral, QDAY ?? aspirin (ASPIRIN) chew tablet 81 mg, Oral, QDAY ?? atorvastatin (LIPITOR) tablet 40 mg, Oral, AT BEDTIME ?? clopidogrel (plaVIX) tablet 75 mg, Oral, AT BEDTIME ?? cyanocobalamin (VITAMIN B-12) tablet 1,000 mcg, Oral, QDAY ?? enoxaparin (LOVENOX) injection 40 mg, Subcutaneous, QDAY AT 0600 ?? flecainide (TAMBOCOR) tablet 50 mg, Oral, BID ?? insulin aspart (NovoLOG) pen 0-6 Units, Subcutaneous, TID WC ?? insulin detemir (LEVEMIR) pen 7 Units, Subcutaneous, AT BEDTIME ?? iodixanol (VISIPAQUE 320) injection, Intravenous, Contrast - Once ?? iron polysaccharides (NIFEREX 150) capsule 150 mg, Oral, QDAY ?? lidocaine (LIDODERM) 5 % patch 1 Patch, Transdermal, QDAY ?? pantoprazole EC (PROTONIX) tablet 40 mg, Oral, QDAY ?? potassium chloride (KLOR-CON M) tablet 10 mEq, Oral, QDAY ?? CONTINUOUS MEDICATIONS: ?? PRN MEDICATIONS: ?? Or ?? Or ?? 0.9% NaCl injection 2-10 mL, Intracatheter, PRN ?? acetaminophen (TYLENOL) tablet 650 mg, Oral, q4h PRN ?? acetaminophen (TYLENOL) tablet 650 mg, Oral, q4h PRN ?? bisacodyl (DULCOLAX) suppository 10 mg, Rectal, QDAY PRN ?? dextrose injection 12.5-25 g, Intravenous, PRN ?? glucagon (GLUCAGEN) injection 1 mg, Intramuscular, PRN ?? glucose (Diabetic Use) oral gel, Oral, PRN ?? ondansetron (ZOFRAN) injection 4 mg, Intravenous, q4h PRN Objective: BP 162/78 Pulse 89 Temp 97.5 ??F Resp 18 Ht 1.651 m (5' 5 ) Wt 96.2 kg (212 lb) SpO2 93% BMI 35.28 kg/m2 General appearance: well developed, in no distress. Neck:supple. Cardiovascular:carotid bruit negative. Mental Status: Awake, Alert. Oriented. Follows commands. Speech fluent.Comprehension intact. Cranial Nerves: EOMI, PERRL, Face symmetric.Shoulder shrug strong/ symmetric.Tongue midline. Motor: 4+/5 bl UEs, 2/5 bl LEs with increased sapsticity of bl LEs. Sensory: Intact to ligth touch at bilateral upper/lower extremities. Gait: non-ambulatory. Data review: Recent Labs Component Name 12/30/16 0430 06/13/16 1245 TSH 3.55 4.45* Recent Labs Component Name 12/29/16 0121 12/28/16 1824 12/28/16 1814 CREATININE 0.91 0.87 0.97 Recent Labs Component Name 12/30/16 0430 CK 89 No results for input(s): PHENYTOIN in the last 35289 hours. No results for input(s): VPA in the last 54362 hours. Recent Labs Component Name 12/30/16 0430 [id number]* Recent Labs Component Name 12/30/16 0430 CHOL 89 TRIG 114 HDL 34* LDLCALC 32 Recent Labs Component Name 12/29/16 0121 06/13/16 1245 HGBA1C 6.8* 6.6* Recent Labs Component Name 12/28/16 1814 06/13/16 1245 ALBUMIN 3.6 4.0 ALKPHOS 127* 127* ALT 25 30 AST 18 18 TBIL 0.2 0.4 TPROT 6.6 6.8 No results for input(s): AMMONIA in the last 07231 hours. No results for input(s): RPR in the last 45637 hours. No results for input(s): CARBAMAZEPIN in the last 95499 hours. No results for input(s): RDEGPYJNB8IQ, SPIMLMPMCU0M, DJSQPGDCMC9C, UZBMXW2GQ, JTTXIVWNLT5K in the last 73979 hours. Invalid input(s): NQKLVVYU7BE, ECCYQFTN2LW, XHY0GDET59, HZYRVPZTEB5O, XTGPTUPLX7YS, XLMAHQORT1UM Recent Labs Component Name 12/29/16 1040 COLORUA Yellow CLARITYUA Cloudy SPECGRAVUA 1.030 PHUA 6.5 PROTEINUA Negative BLOODUA Trace* LEUKOCYTEUA Trace* NITRITEUA Negative GLUCOSEUA 3+* KETONEUA Negative BILIRUBINUA Negative UROBILINUA 1.0 Recent Labs Component Name 12/29/16 0121 12/28/16 1824 12/28/16 1814 06/13/16 1245 SODIUM 144 - 145 144 POTASSIUM 3.8 - 3.9 4.1 CHLORIDE 111* - 111* 108* CO2 27 - 27 27 BUN 14 - 17 18 CREATININE 0.91 0.87 0.97 0.81 GLUCOSE 181* - 132* 88 CALCIUM 8.8 - 9.7 10.3* ALBUMIN - - 3.6 4.0 ALKPHOS - - 127* 127* ALT - - 25 30 AST - - 18 18 TBIL - - 0.2 0.4 TPROT - - 6.6 6.8 EGFR 60 - 56 >60 Recent Labs Component Name 12/29/16 0121 12/28/16 1814 06/13/16 1245 WBC 6.6 7.6 - 8.0 RBC 4.54 4.83 - 4.84 HGB 10.8* 11.5* - 13.9 HCT 35.0* 37.1 - 43.1 MCV 77.1* 76.8* - 89.0 MCHC 30.9 31.0 - 32.3 RDW - - - 13.9 RDWCV 20.5* 20.6* - - PLTCOUNT 290 318 - 418* NEUTPCT 55.7 59.9 - - LYMPHPCT 26.9 25.4 - - MONOCYTPCT 12.9 10.9 - 12.3 EOSINPCT 3.6 3.0 - 2.9 BASOPHILPCT 0.6 0.5 - - GRANSIMMPCT 0.3 0.3 - - LYMPHABS 1.77 1.94 - 1.81 MONOCYTABS 0.85 0.83 - 0.98 EOSINABS 0.24 0.23 - - BASOABS 0.04 0.04 - 0.05 IMMGRANSABS 0.02 0.02 - 0.03 NRBCAUTO 0 0 - - - = values in this interval not displayed. @IMAGES@ Ct Head Non Contrast Result Date: 12/28/2016 EXAMINATION: CT BRAIN WITHOUT CONTRAST. Indication: Weakness. 76 y.o. female with a past medical history that includes --TIA-- presents to the ER c/o left leg weakness. Patient states that she feels she has had another TIA because her left leg is weaker than normal, and she cannot lift it when she is laying on the bed. She started experiencing this weakness at about 10 AM this morning and it has been constant since. Technique: Noncontrast axial images of the brain were performed at the time of the patient's presentation. This is a screening study. Additional coronal reformatted images were performed with the CT scanner software. This CT report was transcribed with a computerized speech recognition system. In an effort to expedite patient care, it has not been adjusted for typographical, grammatical or syntax problems by a trained registered medical assistant. Findings: There is no intracranial mass-effect or midline shift identified. The ventricular system is at the upper limits of normalin size. Patchy areas of decreased CT density can be seen in the supratentorial white matter, worseon the left. Vascular calcifications are noted.. No focal intraparenchymal hemorrhage can be identified. If the patient's symptoms persist or worsen, a followup brain CT or a scheduled brain MRI maybe considered for further evaluation. No acute findings in the brain. Noncontrast brain CT. Please see above. Mri Brain Non Contrast Result Date: 12/29/2016 MRI BRAIN WITHOUT CONTRAST CLINICAL INDICATION: [...] ventricular size is normal. There are no extra-axialfluid collections. Flow void is seen in the major intracranial vessels. The paranasal sinuses and mastoid air cells are clear. No acute process. Advanced chronic small vessel change. Edited by Eneida Smalls on 12/29/2016 12:10 PM Mri Lumbar Spine Wo Contrast Result Date: 12/30/2016 MRI LUMBAR SPINE INDICATION: Left lower [...] the lumbar spine is recommended to ensure consistentnumbering of disc spaces. This is particularly important if surgery is considered. Alignment: Thereis a levoscoliosis of the lumbar spine. Minimal [...] in a mild left lateral recess stenosis. Disc bulge and facet arthropathy in the setting of a scoliosis results in a mild to moderate central canal stenosis at L2-3 and in a mild central canal stenosis at L1-2, L3-4, and L4-5. Lateral recess and neural foraminal stenoses are present as described, most pronounced at the concave aspects of the scoliosis. Edited by Brandi Yi on 12/30/2016 9:18 AM Xr Chest 1vw Portable Result Date: 12/29/2016 Portable Chest AP History: Weakness FINDINGS: Prior from June 13, 2016. The heart size is normaland the lungs are clear and no pneumothorax or pleural effusion is seen. Unremarkable Ct Angio Head And Neck Result Date: 12/28/[address] angiography head [...] arch through the cranial vertex were obtained followingthe administration of 80 mL Visipaque 320 intravenous contrast. Multiplanar reformatted, maximum intensity projection, and 3D volume rendered reconstructions of the arterial vasculature of the neck and brain were performed on an independent workstation. An attempt was made to evaluate the vessels using the NASCET criteria. The CTA protocol is not the standard for the evaluation of aneurysms. Thisreport was transcribed with a computerized speech recognition system. In an effort to expedite patient care, it has not been adjusted for typographical, grammatical or syntax problems by a trained registered medical assistant. For questions about the report, please contact the Radiology Department. Findings: Neck: There is patency of the common carotid, internal carotid, and vertebral arteries. No major vessel occlusion can be identified. . The distal ICA's inferior to the skull base are normal in s ize. Small calcified plaque can be seen at carotid bifurcations bilaterally. The vertebral arteriesare codominant. Head: The carotid siphons and the basilar arteries appear patent. No large branch occlusion can be seen. Small calcified plaque can be seen in the distal vertebral arteries and the distal ICAs. The posterior cerebral arteries show a beaded appearance on the coronal reformatted images. Assessment: 1)worsening Left leg weakness Back pain 2) Possible Lumbar spinal stenosis versus exacerbation of hsp or progression of HSP vs possible TIA HSP spasticity of bl LEs ?? Comment: came with left leg weakness in the setting of back pain suspecting lumbar spinal stenosis versus possible exacerbation of hsp Versus progression of HSP vs less likely davi TIA. CT brain visualized,my impression was no acute intracranial process. CTA Reports no significant narrowing of large arteries. Mr brain no acute stroke. +white matter disease ?? multiple notes reviewed. Plan: 1) MR L spine for Possible lumbar spinal stenosis Contributing to the back pain and leg weakness.visualized showing some stenosis. 2) Deferred Gabapentin 3) Pending MR brain with contrast To further characterize the white matter lesions. cta reports patent carotid arteries, beading of posterior cerebral artery suspecting arthrosclerosis disease, pt had no headache. Obtain labs, reviewed unremarkable with elevated b12,folate.; normal ck. continue aspirin Plavix statin.ldl normal. Neurochecks. Please call for any neurological concerns. f-u Dr. Ross. PT/ot Other medical management per primary team. Thank you so much! Crow Campos MD PhD * Pinky Landa - 12/30/2016 8:17 AM CDT Problem: Low Fall Risk (Score 7-10) Goal: Patient will have lower fall risk. Outcome: Ongoing Bed locked in lowest position Goal: Patient will remain safe from falls and injury. Perla will remain safe from falls and injury. Outcome: Ongoing Patient has not had any falls Problem: Medication Assessment Greater than/Equal 2 Goal: Patient will dangle prior to getting out of bed. Outcome: Ongoing Patient encouraged to get up slowly, reports any dizziness * Aruna Alanis RN - 12/30/2016 5:56 AM CDT Shift Summary: Alert and oriented x4. No BM since last week of Friday. Prune juice given and dulcolax suppository. With good results this am. SBA to transfer, with weakness to BLE, more on the left leg. Afebrile. Sinus rhythm on the monitor.resting in bed at this time. * Aruna Alanis RN - 12/29/2016 10:03 PM CDT Problem: Low Fall Risk (Score 7-10) Goal: Patient will remain safe from falls and injury. Perla will remain safe from falls and injury. Outcome: Ongoing On this shift Perla will be safe and no falls or any injury. * Aruna Alanis RN - 12/29/2016 10:01 PM CDT Problem: Low Fall Risk (Score 7-10) Goal: Patient will remain safe from falls and injury. Perla will remain safe from falls and injury. Outcome: Ongoing On this shift Perla will be safe and will have no falls. * Aruna Alanis RN - 12/29/2016 10:00 PM CDT Problem: Mobility Goal: Patient???s mobility/activity will be maintained as optimum level for age, diagnosis and physical limitations Perla Leon will return back to her baseline within the next 48 hours Outcome: Ongoing On this shift Edward will be able to function with min assist. * Iliana Duke RN - 12/29/2016 5:47 PM CDT Shift Summary: Pt A & O x 4, no acute distress noted. Denies pain. Weakness felt more on left side only with foot pushes and pulls. Pt able to stand and pivot with assistance. SR on monitor. VS as charted. Good appetite. Sat up in chair. Family in throughout the shift. MRI completed. PT/OT evals ordered; Urine culture pending. Iliana Duke RN * Berna Sneed RN - 12/29/2016 2:35 PM CDT OPO case reviewed with ED CM. OPO day 1 appears to be OPO appropriate at this time. No immediate CM needs identified at this time. PIERCE Che, RN, [employer] ([phone]) * Iliana Duke RN - 12/29/2016 12:43 PM CDT Problem: Low Fall Risk (Score 7-10) Goal: Patient/family will understand injury reduction measures. Outcome: Ongoing Perla will request assistance when getting up out of bed to keep her free from falls or injury. * Sherlyn Casiano MD - 12/29/2016 8:21 AM CDT Pt seen and examined. Full H and P to follow * Adrian Cedeno RN - 12/29/2016 4:52 AM CDT Pt has had an uneventful night. Denies having any pain or discomfort, nausea, numbness and tingling, chest pain or pressure. Pt has been calm and cooperative with care. Compliant with meds. Uses BSC and bedpan. Incont of urine x 1 due to urgency. SBA. SCDs/Plavix for DVT prophylaxis. Pt slept intermittmently of shift. On fall precautions. Pt is now up in chair, bedside table and belongings are within reach. Pt is [place] and has left hearing aids at home. Is utilizing her own Levemir Insulin pen, has been labeled by pharmacy. Pt reports having POA/Advance Directives, is aware to bring copy to facility if he is able to find it. Pt reported that she wants all life saving measures done butnot if she is brain . * Adrian Cedeno RN - 12/28/2016 8:45 PM CDT 76 y/o female admitted to [address] [place] [address] from [facility] ER via stretcher, accompanied by software security consultant and .Gait is slow and unsteady, requires assist x 2 with transfers. Pt is alert and oriented x 4. No acute distress/discomfort noted. Pt is her own guardian and is admitted voluntarily to Dr. Mike's services. Pt is admitted with diagnosis possible TIA. Allergies verified. VSS. Skin assessment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 symptoms persist or worsen, a followup brain CT or a scheduled brain MRI may be considered for further evaluation. No acute findings in the brain. Noncontrast brain CT. Please see above. Mri Brain Non Contrast Result Date: 12/29/2016 MRI BRAIN WITHOUT CONTRAST CLINICAL INDICATION: [...] ventricular size is normal. There are no extra-axialfluid collections. Flow void is seen in the major intracranial vessels. The paranasal sinuses and mastoid air cells are clear. No acute process. Advanced chronic small vessel change. Edited by Eneida Smalls on 12/29/2016 12:10 PM Xr Chest 1vw Portable Result Date: 12/29/2016 Portable Chest AP History: Weakness FINDINGS: Prior from June 13, 2016. The heart size is normaland the lungs are clear and no pneumothorax or pleural effusion is seen. Unremarkable Ct Angio Head And Neck Result Date: 12/28/[address] angiography head [...] arch through the cranial vertex were obtained followingthe administration of 80 mL Visipaque 320 intravenous contrast. Multiplanar reformatted, maximum intensity projection, and 3D volume rendered reconstructions of the arterial vasculature of the neck and brain were performed on an independent workstation. An attempt was made to evaluate the vessels using the NASCET criteria. The CTA protocol is not the standard for the evaluation of aneurysms. Thisreport was transcribed with a computerized speech recognition system. In an effort to expedite patient care, it has not been adjusted for typographical, grammatical or syntax problems by a trained registered medical assistant. For questions about the report, please contact the Radiology Department. Findings: Neck: There is patency of the common carotid, internal carotid, and vertebral arteries. No major vessel occlusion can be identified. . The distal ICA's inferior to the skull base are normal in s ize. Small calcified plaque can be seen at carotid bifurcations bilaterally. The vertebral arteriesare codominant. Head: The carotid siphons and the basilar arteries appear patent. No large branch occlusion can be seen. Small calcified plaque can be seen in the distal vertebral arteries and the distal ICAs. The posterior cerebral arteries show a beaded appearance on the coronal reformatted images. Impression: 1)worsening Left leg weakness Back pain 2) Possible Lumbar spinal stenosis versus exacerbation of hsp or progression of HSP vs possible TIA HSP spasticity of bl LEs Comment: came with left leg weakness in the setting of back pain suspecting lumbar spinal stenosis versus possible exacerbation of hsp Versus progression of HSP vs less likely a TIA. CT brain visualized,my impression was no acute intracranial process. CTA Reports no significant narrowing of large arteries. Mr brain no acute stroke. +white matter disease multiple notes reviewed. Plan: 1) MR L spine for Possible lumbar spinal stenosis Contributing to the back pain and leg weakness. 2) Deferred Gabapentin 3) MR brain with contrast To further characterize the white matter lesions. cta reports patent carotid arteries, beading of posterior cerebral artery suspecting arthrosclerosis disease, pt had no headache. Obtain labs. continue aspirin Plavix statin. Neurochecks. Please call for any neurological concerns. f-u Dr. Ross. PT/ot Other medical management per primary team. D/w RN, Patient's at bedside today all questions answered. Thanks for the opportuity to participate in Perla Leon's care. Crow Campos MD PhD [facility] documented in this encounter ED Notes * Sahra Barnett RN - 12/28/2016 6:24 PM CDT PT to CT * Sahra Barnett RN - 12/28/2016 6:15 PM CDT PT arrived to ED with c/o weakness to left leg that she is worried is mimicking a stroke that she has had in the past. PT reports having a nerve disorder and is unaware what the disease is called. PTis unsure if she has neuropathy. Spouse at bedside * Julio Epstein DO - 12/28/2016 5:57 PM CDT Provider contact with the patient: 12/28/2016 17:57 Perla Leon [id number] [facility] History Chief Complaint Patient presents with ??? Weakness pt c/o increased weakness to LLE. hx of TIA The chief complaint narrative was entered by the triage nurse, not by the provider. HPI Comments: 5:57 PM Perla Leon, a 76 y.o. female with a past medical history that includes --TIA, glaucoma, familial spastic paraplegia, heart murmur-- presents to the ER c/o left leg weakness. Patient states that she feels she has had another TIA because her left leg is weaker than normal, and she cannot lift it when she is laying on the bed. She started experiencing this weakness at about 10 AM this morning and it has been constant since. She notes that she always has weakness in both ofher legs due to her familial spastic paraplegia, but that this is different. Patient also complainsof intermittent pain behind her right eyebrow, but does not classify this pain as a headache. Patient also has chronic back pain. notes that the patient has frequent falls and has poor balance. Patient denies recent chest pain, shortness of breath, and fever. PCP: Jarrell Garrison MD Past Medical History: Diagnosis Date ??? Broken ankle 12/19/2003 ??? Duodenal ulcer, unspecified as acute or chronic, without hemorrhage, perforation, or obstruction 1977 ??? Familial spastic paraplegia 1979 ??? Fracture of sacrum 05/1999 [facility] ??? Glaucoma 06/2003 ??? Heart murmur 01/27/2004, 03/13/2004 ??? Lymphatic edema ??? Partial seizures 2000 ??? Pneumonia 1989, 08/2005, 07/2010 ??? TIA (transient ischemic attack) 2000, 08/11/2008 Past Surgical History: Procedure Laterality Date ??? BIOPSY 07/07/2008 LT LEG, RT CHEEK ??? CARDIAC CATH 08/04/2002, 09/06/2010 ??? Cholecystectomy 10/28/1997 ??? Hernia Repair 01/17/2010 ??? Hysterectomy 1985 ??? Knee Replacement 05/06/2001, 09/27/2003 RT KNEE ??? SURGICAL HISTORY OF 1974 REMOVAL OF ULCER FROM VOCAL CORD ??? SURGICAL HISTORY OF 1984 BROKEN NOSE SURGERY ??? SURGICAL HISTORY OF 09/10/2010 PELVIC PROLAPSED RECONSTRUCTION ??? SURGICAL HISTORY OF 07/20/2008 FREEZE PRECANCEROUS SPOT RT CHEEK ??? SURGICAL HISTORY OF 07/05/2008 FREEZE PRECANCERSOUS SPOTS ON RT AND LT ARM No family history on file. Social History Social History ??? Marital status: [...] reaction(s): Other (See comments) Reaction: colon problems, Review of Systems Review of Systems Constitutional: Negative for chills and fever. Positive patient has poor balance. HENT: Negative for sore throat. Positive pain behind right eyebrow. Eyes: Negative for blurred vision and double vision. Respiratory: Negative for cough, shortness of breath and stridor. Cardiovascular: Negative for chest pain. Gastrointestinal: Negative for abdominal pain, diarrhea, nausea and vomiting. Genitourinary: Negative. Negative for dysuria. Musculoskeletal: Positive for back pain (chronic). Negative for neck pain. Skin: Negative for rash. Neurological: Positive for weakness (left leg). Negative for dizziness and headaches. Psychiatric/Behavioral: Negative for depression. All other systems reviewed and are negative. Physical Exam BP 177/79 Pulse 70 Temp 97.8 ??F Resp 16 Ht 1.651 m (5' 5 ) Wt 96.2 kg (212 lb) SpO2 92% BMI 35.28 kg/m2 Physical Exam Constitutional: She is oriented to person, place, and time. She appears well- developed and well-nourished. HENT: Head: Normocephalic and atraumatic. Eyes: Conjunctivae and EOM are normal. No scleral icterus. Neck: Trachea normal. No tracheal deviation present. Cardiovascular: Normal rate, regular rhythm, normal heart sounds, intact distal pulses and normal pulses. Pulmonary/Chest: Effort normal and breath sounds normal. No stridor. Abdominal: Soft. She exhibits no distension. There is no tenderness. Musculoskeletal: Normal range of motion. She exhibits edema (mild, lower extremity). Patient can dorsiflex and plantarflex without difficulty; she can push away with the knees, but cannot flex at the left hip. She cannot lift her left hip off the bed. Neurological: She is alert and oriented to person, place, and time. No cranial nerve deficit. GCS eye subscore is 4. GCS verbal subscore is 5. GCS motor subscore is 6. Mental status: Awake, alert, oriented x 3. Higher Cerebral Function: speech - Non-aphasic (normal) Cranial Nerves: II - Visual dave intact III, IV, - Extraocular movement intact. Pupils equal, round, & reactive to light V/VII - Facial sensation intact and symmetric with normal strength VIII, IX, X - Hearing not tested , normal swallow and gag XI - Normal trapezius strength via shoulder shrug and head rotation XII - No tongue deviation on protrusion Motor Function: Right upper extremity 5 - Normal Strength Left upper extremity 4 - Normal Strenght Right lower extremity 5 - Normal Strength Left lower extremity 5 - Normal Strength Sensory Function: Right upper extremity Normal sensation Left upper extremity Normal sensation Right lower extremity Normal sensation Left lower extremity Normal sensation Coordination: normal alternating movements. Gait: not assessed Skin: Skin is warm and dry. No cyanosis. Nails show no clubbing. Psychiatric: She has a normal mood and affect. Her speech is normal and behavior is normal. Nursing note and vitals reviewed. Medications No current outpatient prescriptions on file. Procedures Procedures ECG Interpretation Date/Time: 12/28/2016 5:43 PM Interpreted by ED provider Comparison: not compared with previous ECG Rhythm: sinus rhythm Rate: normal BPM: 71 QRS axis: normal ST Segments: ST segments normal Other findings comments: AL interval 166 ms, QRS interval 100 ms, QTc interval 460 ms Q waves: V2 and V1 Clinical impression: non-specific ECG Comments: No significant ST elevations or depressions. ECG Rhythm Interpretation ECG Rhythm: normal sinus. ECG Rate: normal. ECG Heart Rate: 71. Lab Interpretation Oxygen Saturation Interpretation The oxygen saturation level is: 92%. The patient was on Room Air for the saturation measurement. Measurement frequency: Spot Check. Oxygen saturation interpretation is Normal. Intervention(s) used: None. Hospital Encounter on 12/28/16 TROPONIN I Result Value Ref Range Troponin I <0.015 0.000 - 0.049 ng/mL CBC W AUTO DIFFERENTIAL Result Value Ref Range WBC 7.6 4.4 - 10.7 x10E9/L WBC Corrected x10E9/L RBC 4.83 3.80 - 5.20 x10E12/L Hgb 11.5 (L) 12.0 - 15.6 gm/dL HCT 37.1 35.9 - 45.5 % MCV 76.8 (L) 80.7 - 98.3 fl MCH 23.8 (L) 26.7 - 34.0 pg MCHC 31.0 30.8 - 35.9 gm/dL Plt Ct 318 153 - 416 x10E9/L RDW-CV 20.6 (H) 12.1 - 14.9 % MPV 10.2 9.4 - 12.9 fl Neutro 59.9 44.0 - 73.0 % Lymph 25.4 20.0 - 43.0 % Fisher 10.9 5.0 - 13.0 % Eos 3.0 0.0 - 6.0 % Baso 0.5 0.0 - 2.0 % Immature Grans 0.3 0 - 1 % Neutro Abs 4.58 2.01 - 7.14 x10E9/L Lymph Abs 1.94 1.07 - 3.94 x10E9/L Fisher Abs 0.83 0.26 - 1.07 x10E9/L Eosin Abs 0.23 0 - 0.47 x10E9/L Baso Abs 0.04 0 - 0.08 x10E9/L Immature Grans (Abs) 0.02 0.00 - 0.06 x10E9/L NRBC Auto 0 /100 WBC COMPREHENSIVE METABOLIC PANEL Result Value Ref Range Glucose 132 (H) 74 - 106 mg/dL Sodium 145 136 - 145 mmol/L Potassium 3.9 3.5 - 5.1 mmol/L Chloride 111 (H) 98 - 107 mmol/L CO2 27 22 - 31 mmol/L Calcium 9.7 8.5 - 10.1 mg/dL Anion Gap 7 (L) 8 - 16 mmol/L BUN 17 7 - 21 mg/dL Creatinine 0.97 0.50 - 1.30 mg/dL Alk Phos 127 (H) 38 - 126 U/L ALT/SGPT 25 13 - 61 U/L AST/SGOT 18 5 - 40 U/L Protein Total 6.6 6.4 - 8.2 gm/dL Albumin 3.6 3.4 - 5.0 gm/dL Bili Total 0.2 0.2 - 1.0 mg/dL eGFR MDRD 56 mL/min/1.73m2 eGFR MDRD AFR AMR >60 mL/min/1.73m2 PT-INR Result Value Ref Range PT 10.1 9.5 - 11.6 sec INR 1.0 0.9 - 1.1 CREATININE BLOOD - POINT OF CARE (IP) Result Value Ref Range Creatinine POCT 0.87 0.7 - 1.2 mg/dL QC Verified Yes Yes CT ANGIO HEAD AND NECK Final Result CT angiography neck CT angiography head CT [...] grammatical or syntax problems by a trained registered medical assistant. For questions about the report, please contact [...] beaded appearance on the coronal reformatted images. CT HEAD NON CONTRAST Final Result EXAMINATION: CT BRAIN WITHOUT CONTRAST. Indication: Weakness. 76 y.o. female with a past medical history that includes --TIA-- presents to the ER c/o left leg weakness. Patient states that she feels she has had another TIA because her left leg is weaker than normal, and she cannot lift it when she is laying on the bed. She started experiencing this weakness at about 10 AM this morning and it has been constant since. Technique: Noncontrast axial images of the brain were performed at the time of the patient's presentation. This is a screening study. Additional coronal reformatted images were performed with the CT scanner software. This CT report was transcribed with a computerized speech recognition system. In an effort to expedite patient care, it has not been adjusted for typographical, grammatical or syntax problems by a trained registered medical assistant. Findings: There is no intracranial mass-effect or midline shift identified. The ventricular system is at the upper limits of normal in size. Patchy areas of decreased CT density can be seen in the supratentorial white matter, worse on the left. Vascular calcifications are noted.. No focal intraparenchymal hemorrhage can be identified. If the patient's symptoms persist or worsen, a followup brain CT or a scheduled brain MRI may be considered for further evaluation. IMPRESSION No acute findings in the brain. Noncontrast brain CT. Please see above. Progress Notes 6:[address] Ross (neurology) and Dr. Larkin (Stroke neurology). 6:11 PM I discussed the case with Dr. Larkin and he suggests I order a CT and CT angio, admit the patient through SOUND, and have general neurology see her tomorrow. He also said that if there is anything abnormal with the imaging then to consult them; but otherwise just continue the aspirin and plavix. 6:13 PM I discussed the case with Dr. Callahan for Dr. Ross and he suggests an MRI tomorrow and to consult them. 6:17 PM I paged [facility]. 6:23 PM: I discussed with [facility] for Dr. Salvador ([facility]) all pertinent aspects of the case including HPI details, physical exam findings, testing completed, medications given, the pt's current condition, my clinical impression, and the need for admission for further evaluation and treatment. Dr. Salvador agrees to accept the patient at this time. We have agreed on an initial plan. The patient/family understand and agree with the plan. Interim orders written by undersigned. I had a formal disposition interview with the patient/family to discuss the ED visit and disposition plan. ED Course ED Course Medical Decision Making I have reviewed the: Previous Chart, Nursing Notes, Vitals. I have interpreted the following results: Labs, 12 Lead EKG, Rhythm Strip, MRI, CT Scans and OxygenSaturation. I have discussed the case with Admitting Physician, Neurology. Orders Placed This Encounter ??? CT HEAD NON CONTRAST ??? CT ANGIO HEAD AND NECK ??? MRI BRAIN NON CONTRAST ??? TROPONIN I ??? TROPONIN I ??? CBC W AUTO DIFFERENTIAL ??? COMPREHENSIVE METABOLIC PANEL ??? PT-INR ??? BASIC METABOLIC PANEL (CALCIUM TOTAL) ??? CBC W AUTO DIFFERENTIAL ??? HEMOGLOBIN A1C ??? NEUROLOGY CONSULT ??? OXYGEN ??? OXYGEN ??? CREATININE BLOOD - POINT OF CARE (IP) ??? EKG 12-LEAD ??? 0.9% NaCl injection 2-10 mL ??? iodixanol (VISIPAQUE 320) injection ??? DISCONTD: aspirin (ASPIRIN) tablet 81 mg ??? clopidogrel (plaVIX) tablet 75 mg ??? acetaminophen (TYLENOL) tablet 650 mg ??? acetaminophen (TYLENOL) tablet 650 mg ??? ondansetron (ZOFRAN) injection 4 mg ??? OR Linked Order Group ??? glucose (Diabetic Use) oral gel ??? dextrose injection 12.5-25 g ??? glucagon (GLUCAGEN) injection 1 mg ??? insulin aspart (NovoLOG) pen 0-6 Units ??? aspirin (ASPIRIN) chew tablet 81 mg Based on pt's history and physical exam, pt EKG sinus no significant elevation or depression. Troponin normal white count normal BUN creatinine normal. CT of the head CT angio showed no acute process. Discussed the case with stroke neurology recommended admission through hospitalist and general Neurology consult. MRI tomorrow if there is any ischemic issues to consult of stroke neurologist., my clinical impression is left leg weakness Clinical Impression Final diagnoses: Weakness Diagnosis: Encounter Diagnosis Name Primary? Weakness Disposition: Admit to Neuro Tele By signing my name below, I, Sabrina Nye, attest that this documentation has been prepared under the direction and in the presence of Dr. Julio Epstein. Electronically Signed: Destini Hall. 12/28/2016. Time 5:59 PM I, Dr. Julio Epstein, personally performed the services described in this documentation. All medical record entries made by the dennisibmainor were at my direction and in my presence. I have reviewed the chart and agree that the record reflects my personal performance and is accurate and complete. Dr. Julio Epstein DO . 12/28/2016. Time 9:09 PM documented in this encounter Plan of Treatment Not on file documented as of this encounter Goals Goal Patient Goal Type Associated Problems Recent Progress Patient-Stated? Author Blood Pressure < 140/90 Blood Pressure 127/52(2022 8:09 AM HEALTH AND SAFETY REPRESENTATIVE) No Alisa Jaramillo HEMOGLOBIN A1C < 7.0 Result Component 5.4( 12:00 AM CDT) No Alisa Jaramillo documented as of this encounter Procedures Procedure Name Priority Date/Time Associated Diagnosis Comments CARDIAC RHYTHM STRIP ORDER 01/24/2017 10:19 PM CDT GLUCOSE - POINT OF CARE Routine 12/31/2016 11:16 AM CDT GLUCOSE - POINT OF CARE Routine 12/31/2016 7:44 AM CDT CARDIAC EKG ORDER 12/30/2016 10: 18 PM CDT GLUCOSE - POINT OF CARE Routine 12/30/2016 9:50 PM CDT GLUCOSE - POINT OF CARE Routine 12/30/2016 5:01 PM CDT MRI BRAIN W CONTRAST Routine 12/30/2016 2:56 PM CDT Weakness HSP (hereditary spastic paraplegia) (HCC) GLUCOSE - POINT OF CARE Routine 12/30/2016 12:16 PM CDT C-REACTIVE PROTEIN SENSITIVE AM Draw 12/30/2016 4:38 AM CDT METHYLMALONIC ACID BLOOD AM Draw 12/30/2016 4:36 AM CDT ERYTHROCYTE SEDIMENTATION RATE AM Draw 12/30/2016 4:35 AM CDT HOMOCYSTEINE BLOOD QUANTITATIVE Routine 12/30/2016 4:34 AM CDT FOLATE Routine 12/30/2016 4:30 AM CDT CK BLOOD Routine 12/30/2016 4:30 AM CDT VITAMIN B12 AM Draw 12/30/2016 4:30 AM CDT TSH AM Draw 12/30/2016 4:30 AM CDT LIPID PROFILE AM Draw 12/30/2016 4:30 AM CDT GLUCOSE - POINT OF CARE Routine 12/29/2016 9:36 PM CDT GLUCOSE - POINT OF CARE Routine 12/29/2016 4:36 PM CDT MRI LUMBAR SPINE WO CONTRAST Routine 12/29/2016 4:11 PM CDT Weakness XR CHEST 1VW PORTABLE Routine 12/29/2016 11:09 AM CDT Weakness URINALYSIS REFLEX MICROSCOPIC REFLEX CULTURE Routine 12/29/2016 10:40 AM CDT Weakness CULTURE URINE Routine 12/29/2016 10:40 AM CDT Weakness GLUCOSE - POINT OF CARE Routine 12/29/2016 10:29 AM CDT MRI BRAIN WO CONTRAST Routine 12/29/2016 9:36 AM CDT Weakness TROPONIN I Timed 12/29/2016 1:21 AM CDT HEMOGLOBIN A1C Routine 12/29/2016 1:21 AM CDT CBC W AUTO DIFFERENTIAL AM Draw 12/29/2016 1:21 AM CDT BASIC METABOLIC PANEL (CALCIUM TOTAL) AM Draw 12/29/2016 1:21 AM CDT TROPONIN I Timed 12/28/2016 10:17 PM CDT GLUCOSE - POINT OF CARE Routine 12/28/2016 8:[address] ANGIO BRAIN AND NECK STAT 12/28/2016 6:[address] HEAD WO CONTRAST STAT 12/28/2016 6 :33 PM CDT Weakness CREATININE BLOOD - POINT OF CARE (IP) Routine 12/28/2016 6:24 PM CDT Weakness TROPONIN I STAT 12/28/2016 6:14 PM CDT PT-INR STAT 12/28/2016 6:14 PM CDT CBC W AUTO DIFFERENTIAL STAT 12/28/2016 6:14 PM CDT COMPREHENSIVE METABOLIC PANEL STAT 12/28/2016 6:14 PM CDT EKG 12-LEAD STAT 12/28/2016 5:43 PM CDT Weakness documented in this encounter Results * CARDIAC RHYTHM STRIP ORDER (01/24/2017 10:19 PM CDT) Narrative 01/24/2017 10:19 PM CDT Ordered by an unspecified provider. Scanned Document CARDIAC SERVICES ORD ERABLES * (ABNORMAL) GLUCOSE - POINT OF CARE (12/31/2016 11:16 AM CDT) Glucose WB/POC 207(H) 70 - 106 mg/dL 12/31/2016 4:50 PM CDT [facility] Blood BLOOD SPECIMEN / Unknown 12/31/2016 11:16 AM CDT 12/31/2016 4:50 PM CDT Deon Gomez AB - POINT OF CARE ORDERABLES [facility] [address] [place] [address] * (ABNORMAL) GLUCOSE - POINT OF CARE (12/31/2016 7:44 AM CDT) Glucose WB/POC 123(H) 70 - 106 mg/dL 12/31/2016 4:50 PM CDT [facility] Blood BLOOD SPECIMEN / Unknown 12/31/2016 7:44 AM CDT 12/31/2016 4:50 PM CDT Deon Martins MD L AB - POINT OF CARE ORDERABLES Performing Organization Address [facility] Co de Phone Number [facility] [phone] [place] [id number] * CARDIAC EKG ORDER (12/30/2016 10:18 PM CDT) Narrative 12/30/2016 10:18 PM CDT Ordered by an unspecified provider. Scanned Document CARDIAC SERVICES ORD ERABLES * (ABNORMAL) GLUCOSE - POINT OF CARE (12/30/2016 9:50 PM CDT) Glucose WB/POC 155(H) 70 - 106 mg/dL 12/31/2016 4:50 PM CDT [facility] Blood BLOOD SPECIMEN / Unknown 12/30/2016 9:50 PM CDT 12/31/2016 4:50 PM CDT Sherlyn Casiano MD LAB - POINT OF CARE ORDERABLES Performing Organization Address [facility] Co de Phone Number [facility] [phone] [place] [phone] * (ABNORMAL) GLUCOSE - POINT OF CARE (12/30/2016 5:01 PM CDT) Glucose WB/POC 161(H) 70 - 106 mg/dL 12/30/2016 7:22 PM CDT [facility] Blood BLOOD SPECIMEN / Unknown 12/30/2016 5:01 PM CDT 12/30/2016 7:22 PM CDT Sherlyn Casiano MD LAB - POINT OF CARE ORDERABLES Performing Organization Address [facility] Co de Phone Number [facility] [phone] [place] [phone] * MRI BRAIN WITH CONTRAST (12/30/2016 2:56 [...] AM Crow Campos MD MR ORDERABLES * (ABNORMAL) GLUCOSE - POINT OF CARE (12/30/2016 12:16 PM CDT) Glucose WB/POC 122(H) 70 - 106 mg/dL 12/30/2016 7:22 PM CDT [facility] Blood BLOOD SPECIMEN / Unknown 12/30/2016 12:16 PM CDT 12/30/2016 7:22 PM CDT Sherlyn Casiano MD LAB - POINT OF CARE ORDERABLES Performing Organization Address [facility] Co de Phone Number [facility] [id number] [place] [address] * C-REACTIVE PROTEIN SENSITIVE (12/30/2016 4:38 AM CDT) [facility] C-Reactive Protein High Sensitivity 0.16 <0.30 mg/dL 12/30/2016 9:18 AM CDT [facility] Blood BLOOD SPECIMEN / Unknown Venipuncture / Unknown 12/30/2016 4:38 AM CDT 12/30/2016 4:51 AM CDT Narrative [facility] - 12/30/2016 9:18 AM CDT C-REACTIVE [...] - CHEMISTRY ROWAN QUIROZ Performing Organization Address [facility] Co de Phone Number [facility] [address] [place] [address] * METHYLMALONIC ACID BLOOD (12/30/2016 4:36 AM CDT) [facility] Methylmalonic Acid 133 0 - 378 nmol/L 01/02/2017 7:14 AM CDT [facility] ([facility]) Blood BLOOD SPECIMEN / Unknown Venipuncture / Unknown 12/30/2016 4:36 AM CDT 12/30/2016 4:51 AM CDT Narrative [facility] ([facility]) - 01/02/2017 7:14 AM CDT Performed at: ??01 - [facility] ??[id number] Management Technician: Russell Aranda MD, Phone: ??[phone] Crow Campos MD LAB - CHEMISTRY ROWAN QUIROZ Performing Organization Address City/[facility]/ZIP Co de Phone Number [facility] ([facility]) [address] [place] [address] * SED RATE WESTERGREN (12/30/2016 4:35 AM CDT) Pathologist [facility] Erythrocyte Sedimentation Rate Westergren 4 0 - 30 mm/hr 12/30/2016 5:22 AM CDT [facility] Blood BLOOD SPECIMEN / Unknown Venipuncture / Unknown 12/30/2016 4:35 AM CDT 12/30/2016 4:51 AM CDT Crow Campos MD LAB - HEMATOLOGY ORD ERABLES Performing Organization Address City/[facility]/ZIP Co de Phone Number [facility] [address] [place] [address] * HOMOCYSTEINE BLOOD QUANTITATIVE (12/30/2016 4:34 AM CDT) Pathologist [facility] Homocysteine 7.2 5.0 - 13.9 umol/L 12/30/2016 10:12 AM CDT [facility] Blood BLOOD SPECIMEN / Unknown Venipuncture / Unknown 12/30/2016 4:34 AM CDT 12/30/2016 4:51 AM CDT Crow Campos MD LAB - CHEMISTRY [place] QU[place] Performing Organization Address City/[facility]/ZIP Co de Phone Number [facility] [address] [place] [address] * (ABNORMAL) LIPID PROFILE (12/30/2016 4:30 AM CDT) Cholesterol 89 <200 mg/dL 12/30/2016 5:21 AM CDT [facility] Triglycerides 114 <150 mg/dL 12/30/2016 5:21 AM CDT [facility] HDL Cholesterol 34(L) >40 mg/dL 7 5:21 AM CDT [facility] LDL Calculated 32 <130 mg/dL 12/30/2016 5:21 AM CDT [facility] VLDL Calculated 23 <=30 mg/dL 7 5:21 AM CDT [facility] Chol HDL Ratio 2.6 <4.5 12/30/2016 5:21 AM CDT [facility] LDL/HDL Ratio 0.9 <5.0 12/30/2016 5:21 AM CDT [facility] Blood BLOOD SPECIMEN / Unknown Venipuncture / Unknown 12/30/2016 4:30 AM CDT 12/30/2016 4:51 AM CDT Crow Campos MD LAB - CHEMISTRY [place] Performing Organization Address City/[facility] Co de Phone Number [facility] [address] [place] [address] * CK BLOOD (12/30/2016 4:30 AM CDT) CK 89 35 - 232 U/L 12/30/2016 5:21 AM CDT [facility] Blood BLOOD SPECIMEN / Unknown Venipuncture / Unknown 12/30/2016 4:30 AM CDT 12/30/2016 4:51 AM CDT Crow Campos MD LAB - CHEMISTRY [place] QUIROZ Performing Organization Address City/[facility]/ZIP Co de Phone Number [facility] [address] [place] [address] * TSH (12/30/2016 4:30 AM CDT) TSH 3.55 0.358 - 3.740 uIU/mL 12/30/2016 5:54 AM CDT [facility] Blood BLOOD SPECIMEN / Unknown Venipuncture / Unknown 12/30/2016 4:30 AM CDT 12/30/2016 4:51 AM CDT Crow Campos MD LAB - CHEMISTRY [place] Performing Organization Address [facility] Co de Phone Number [facility] [id number] [place] [phone] * (ABNORMAL) VITAMIN B12 (12/30/2016 4:30 AM CDT) Pathologist [facility] Vitamin B12 1,362(H) 211 - 911 pg/mL 12/30/2016 5:54 AM CDT [facility] Blood BLOOD SPECIMEN / Unknown Venipuncture / Unknown 12/30/2016 4:30 AM CDT 12/30/2016 4:51 AM CDT Crow Campos MD LAB - CHEMISTRY [place] QU[place]Z Performing Organization Address [facility] de Phone Number [facility] [address] [place] [phone] * (ABNORMAL) FOLATE (12/30/2016 4:30 AM CDT) Pathologist [facility] Folate 30.5(H) 3.1 - 17.5 ng/mL 12/30/2016 5:55 AM CDT [facility] Blood BLOOD SPECIMEN / Unknown Venipuncture / Unknown 12/30/2016 4:30 AM CDT 12/30/2016 4:51 AM CDT Crow Campos MD LAB - CHEMISTRY R[place] QUIROZ Performing Organization Address [facility] de Phone Number [facility] [id number] [place] [address] * (ABNORMAL) GLUCOSE - POINT OF CARE (12/29/2016 9:36 PM CDT) Pathologist [facility] Glucose WB/POC 188(H) 70 - 106 mg/dL 12/30/2016 12:10 PM CDT [facility] Blood BLOOD SPECIMEN / Unknown 12/29/2016 9:36 PM CDT 12/30/2016 12:10 PM CDT Sherlyn Casiano MD LAB - POINT OF CARE ORDERABLES Performing Organization Address City/[facility] Co de Phone Number [facility] [address] [place] [address] * (ABNORMAL) GLUCOSE - POINT OF CARE (12/29/2016 4:36 PM CDT) [facility] Glucose WB/POC 176(H) 70 - 106 mg/dL 12/30/2016 7:22 PM CDT [facility] Blood BLOOD SPECIMEN / Unknown 12/29/2016 4:36 PM CDT 12/30/2016 7:22 PM CDT Sherlyn Casiano MD LAB - POINT OF CARE ORDERABLES Performing Organization Address [facility] de Phone Number [facility] [id number] [place] [address] * MRI LUMBAR SPINE WO CONTRAST (12/29/2016 [...] AM Crow Campos MD MR ORDERABLES * XR CHEST 1VW PORTABLE (12/29/2016 11:09 AM CDT) Anatomical Region Laterality Modality Chest Radiographic Mireya ging 12/29/2016 11:1 8 AM CDT Impressions 12/29/2016 11:19 AM CDT Unremarkable Narrative 12/29/2016 11:19 AM CDT Portable Chest AP History: Weakness FINDINGS: Prior from June 13, 2016. The heart size is normal and the lungs are clear and no pneumothorax or pleural effusion is seen. Procedure Note Julian North MD - 12/29/2016 Portable Chest AP History: Weakness FINDINGS: Prior from June 13, 2016. The heart size is normal and the lungs are clear and no pneumothorax or pleural effusion is seen. IMPRESSION Unremarkable Sherlyn Casiano MD DIAGNOSTIC IMAGING O RDERABLES * (ABNORMAL) CULTURE URINE (12/29/2016 10:40 AM CDT) Pathologist [facility] Culture Urine >100,000 CFU/mL Pseudomonas aeruginosa(A) DRAKE 12/31/2016 6:51 AM CDT [facility] Urine URINE SPECIMEN OBTAINED BY CLEAN CATCH PROCEDURE / Unknown Collection / Unknown 12/29/2016 10:40 AM CDT 12/29/2016 10:49 AM CDT Narrative Organism Antibiotic Method Susceptibility Pseudomonas aeruginosa Amikacin DRAKE <=2 ug/mL: Susceptible Pseudomonas aeruginosa Cefepime DRAKE 2 ug/mL: Susceptible Pseudomonas aeruginosa Ceftazidime DRAKE 4 ug/mL: Susceptible Pseudomonas aeruginosa Ciprofloxacin DRAKE <=0.25 ug/mL: Susceptible Pseudomonas aeruginosa Gentamicin DRAKE <=1 ug/mL: Susceptible Pseudomonas aeruginosa Meropenem DRAKE <=0.25 ug/mL: Susceptible Pseudomonas aeruginosa Piperacillin-tazobactam DRAKE 16 ug/mL: Susceptible Pseudomonas aeruginosa Tobramycin DRAKE <=1 ug/mL: Susceptible Sherlyn Casiano MD LAB - MICROBIOLOGY O RDERABLES [facility] [address] [facility] [address] [place] [phone] * (ABNORMAL) URINALYSIS ROUTINE W/REFLEX TO CULTURE (12/29/2016 10:40 AM CDT) Color UA Yellow Straw, Yellow, Dark Yellow 12/29/2016 11:00 AM CDT [facility] Clarity UA Cloudy 12/29/2016 11:00 AM CDT [facility] Specific [place] UA 1.030 1.005 - 1.030 12/29/2016 11:00 AM CDT [facility] pH UA 6.5 5.0 - 8.0 pH 12/29/2016 11:00 AM CDT [facility] Protein UA Negative Negative 12/29/2016 11:00 AM CDT [facility] Blood UA Trace(A) Negative 12/29/2016 11:00 AM T [facility] Leukocyte UA Trace(A) Negative 12/29/2016 11:00 AM CDT [facility] Nitrite UA Negative Negative 12/29/2016 11:00 AM T [facility] Glucose UA 3+(A) Negative 12/29/2016 11:00 AM T [facility] Ketone UA Negative Negative 12/29/2016 11:00 AM [facility] Bilirubin UA Negative Negative 12/29/2016 11:00 AM T [facility] Urobilinogen UA 1.0 0.1 - 1.0 EU/dL 12/29/2016 11:00 AM [facility] WBC UA Auto 20-50(A) 0-2, 2-5 # /hpf 12/29/2016 11:00 AM [facility] RBC UA Auto 0-2 0-2, 2-5 # /hpf 12/29/2016 11:00 AM [facility] Epithelial Cell UA Auto 0-2 0-2, 2-5 # /hpf 12/29/2016 11:00 AM [facility] Bacteria UA Auto 3+(A) None seen 12/30/19 17 11:00 AM [facility] Hyaline Casts UA Auto 0-2 0 - 2 #/lpf 12/29/2016 11:00 AM [facility] Reflex Status Culture to follow 12/29/2016 11:00 AM [facility] Urine URINE SPECIMEN OBTAINED BY CLEAN CATCH PROCEDURE / Unknown Collection / Unknown 12/29/2016 10:40 AM CDT 12/29/2016 10:49 AM T Sherlyn Casiano MD LAB - URINALYSIS ORD ERABLES [facility] [address] [place] [address] * GLUCOSE - POINT OF CARE (12/29/2016 10:29 AM CDT) Glucose WB/POC 100 70 - 106 mg/dL 12/29/2016 10:43 AM CDT [facility] Blood BLOOD SPECIMEN / Unknown 12/29/2016 10:29 AM CDT 12/29/2016 10:43 AM CDT Sherlyn Casiano MD LAB - POINT OF CARE ORDERABLES [facility] [address] [place] [address] * MRI BRAIN NON CONTRAST (12/29/2016 9:36 AM CDT) Anatomical Region Laterality Modality Head Magnetic [...] on 12/29/2016 12:10 PM Julio Epstein DO ORDERABLES * (ABNORMAL) HEMOGLOBIN A1C (12/29/2016 1:21 AM CDT) Hemoglobin A1c 6.8(H) 4.2 - 6.3 % 12/29/2016 1:55 AM CDT [facility] Estimated Average Glucose 148 mg/dL 12/29/2016 1:55 AM CDT [facility] Whole Blood BLOOD SPECIMEN WITH EDTA / Unknown Venipuncture / Unknown 12/29/2016 1:21 AM CDT 12/29/2016 1:21 AM CDT Adela Hamm [employer]ING [employer]LE[employer] DRIVER-ISOTOPE HYDROLOGIST LAB - CHEMISTR Y ORDERABLES [facility] [address] [place] [address] * (ABNORMAL) CBC W AUTO DIFFERENTIAL (12/29/2016 1:21 AM CDT) WBC 6.6 4.4 - 10.7 x10E9/L 12/29/2016 1:23 AM CDT [facility] WBC Corrected x10E9/L 12/29/2016 1:23 AM CDT [facility] RBC 4.54 3.80 - 5.20 x10E12/L 12/29/2016 1:23 AM CDT [facility] Hemoglobin 10.8(L) 12.0 - 15.6 gm/dL 12/29/2016 1:23 AM CDT [facility] Hematocrit 35.0(L) 35.9 - 45.5 % 12/29/2016 1:23 AM CDT [facility] MCV 77.1(L) 80.7 - 98.3 fl 12/29/2016 1:23 AM CDT [facility] MCH 23.8(L) 26.7 - 34.0 pg 12/29/2016 1:23 AM CDT [facility] MCHC 30.9 30.8 - 35.9 gm/dL 12/29/2016 1:23 AM CDT [facility] Platelet Count 290 153 - 416 x10E9/L 12/29/2016 1:23 AM CDT [facility] RDW-CV 20.5(H) 12.1 - 14.9 % 12/29/2016 1:23 AM CDT [facility] MPV 10.6 9.4 - 12.9 fl 12/29/2016 1:23 AM CDT [facility] Neutrophils % 55.7 44.0 - 73.0 % 12/29/2016 1:23 AM CDT [facility] Lymphocytes % 26.9 20.0 - 43.0 % 12/29/2016 1:23 AM CDT [facility] Monocytes % 12.9 5.0 - 13.0 % 12/29/2016 1:23 AM CDT [facility] Eosinophils % 3.6 0.0 - 6.0 % 12/29/2016 1:23 AM CDT [facility] Basophils % 0.6 0.0 - 2.0 % 12/29/2016 1:23 AM CDT [facility] Immature Granulocytes 0.3 0 - 1 % 12/29/2016 1:23 AM CDT [facility] Neutrophil Absolute 3.66 2.01 - 7.14 x10E9/L 12/29/2016 1:23 AM CDT [facility] Lymphocytes Absolute 1.77 1.07 - 3.94 x10E9/L 12/29/2016 1:23 AM CDT [facility] Monocytes Absolute 0.85 0.26 - 1.07 x10E9/L 12/29/2016 1:23 AM CDT [facility] Eosinophils Absolute 0.24 0 - 0.47 x10E9/L 12/29/2016 1:23 AM CDT [facility] Basophils Absolute 0.04 0 - 0.08 x10E9/L 12/29/2016 1:23 AM CDT [facility] Immature Granulocytes Absolute 0.02 0.00 - 0.06 x10E9/L 12/29/2016 1:23 AM CDT [facility] nRBC Auto 0 /100 WBC 12/29/2016 1:23 AM CDT [facility] Blood BLOOD SPECIMEN / Unknown Venipuncture / Unknown 12/29/2016 1:21 AM CDT 12/29/2016 1:21 AM CDT Julio Epstein DO LAB - HEMATOLOGY O RDERABLES [facility] [address] [place] [address] * (ABNORMAL) BASIC METABOLIC PANEL (CALCIUM TOTAL) (12/29/2016 1:21 AM CDT) Glucose 181(H) 74 - 106 mg/dL 12/29/2016 1:44 AM CDT [facility] Sodium 144 136 - 145 mmol/L 12/29/2016 1:44 AM CDT [facility] Potassium 3.8 3.5 - 5.1 mmol/L 12/29/2016 1:44 AM CDT [facility] Chloride 111(H) 98 - 107 mmol/L 12/29/2016 1:44 AM CDT [facility] CO2 27 22 - 31 mmol/L 12/29/2016 1:44 AM CDT [facility] Calcium 8.8 8.5 - 10.1 mg/dL 12/29/2016 1:44 AM CDT [facility] Anion Gap 6(L) 8 - 16 mmol/L 12/29/2016 1:44 AM CDT [facility] BUN 14 7 - 21 mg/dL 12/29/2016 1:44 AM CDT [facility] Creatinine 0.91 0.50 - 1.30 mg/dL 12/29/2016 1:44 AM CDT [facility] eGFR by MDRD 60 mL/min/1.7 3m2 12/29/2016 1:44 AM CDT [facility] eGFR by MDRD >60 mL/min/1.7 3m2 12/29/2016 1:44 AM CDT [facility] Blood BLOOD SPECIMEN / Unknown Venipuncture / Unknown 12/29/2016 1:21 AM CDT 12/29/2016 1:21 AM CDT Julio Epstein DO LAB - CHEMISTRY OR DERABLES [facility] [address] [place] [address] * TROPONIN I (12/29/2016 1:21 AM CDT) Troponin I <0.015 0.000 - 0.049 ng/mL 12/29/2016 1:44 AM CDT [facility] Blood BLOOD SPECIMEN / Unknown Venipuncture / Unknown 12/29/2016 1:21 AM CDT 12/29/2016 1:21 AM CDT [facility] - 12/29/2016 1:44 AM CDT Note: Diagnosis of myocardial infarction [...] as pulmonary embolism, renal failure and sepsis. Julio Epstein DO LAB - CHEMISTRY OR DERABLES Performing Organization Address [facility] de Phone Number [facility] [address] [place] [phone] * TROPONIN I (12/28/2016 10:17 PM CDT) [facility] Troponin I <0.015 0.000 - 0.049 ng/mL 12/28/2016 10:38 PM CDT [facility] Blood BLOOD SPECIMEN / Unknown Venipuncture / Unknown 12/28/2016 10:17 PM CDT 12/28/2016 10:19 PM CDT [facility] - 12/28/2016 10:38 PM CDT Note: Diagnosis of myocardial infarction [...] as pulmonary embolism, renal failure and sepsis. Julio Epstein DO LAB - CHEMISTRY OR LumexisABLES Performing Organization Address [facility] Co de Phone Number [facility] [address] [place] [address] * GLUCOSE - POINT OF CARE (12/28/2016 8:18 PM CDT) Glucose WB/POC 104 70 - 106 mg/dL 12/28/2016 10:10 PM CDT [facility] Blood BLOOD SPECIMEN / Unknown 12/28/2016 8:18 PM CDT 12/28/2016 10:10 PM CDT Rj Salvador MD LAB - POINT OF CARE ORDERABLES Performing Organization Address [facility] de Phone Number [facility] [address] [place] [address] * CT ANGIO HEAD AND NECK (12/28/2016 [...] grammatical or syntax problems by a trained registered medical assistant. For questions about the report, please contact [...] grammatical or syntax problems by a trained registered medical assistant. For questions about the report, please contact [...] images. Julio Epstein DO CT ORDERABLES * CT HEAD NON CONTRAST (12/28/2016 6:33 PM CDT) Anatomical Region Laterality Modality Head Computed Tomogra phy 12/28/2016 6:35 PM CDT Impressions 12/28/2016 6:36 PM CDT No acute findings in the brain. ??Noncontrast brain CT. Please see above. Narrative 12/28/2016 6:36 PM CDT EXAMINATION: CT BRAIN WITHOUT CONTRAST. Indication: Weakness. ??76 y.o. female with a past medical history that includes --TIA-- presents to the ER c/o left leg weakness. Patient states that she feels she has had another TIA because her left leg is weaker than normal, and she cannot lift it when she is laying on the bed. She started experiencing this weakness at about 10 AM this morning and it has been constant since. Technique: Noncontrast axial images of the brain were performed at the time of the patient's presentation. ??This is a screening study. Additional coronal reformatted images were performed with the CT scanner software. ??This CT report was transcribed with a computerized speech recognition system. ??In an effort to expedite patient care, it has not been adjusted for typographical, grammatical or syntax problems by a trained registered medical assistant. Findings: ? There is no intracranial mass-effect or midline shift identified. The ventricular system is at the upper limits of normal in size. ??Patchy areas of decreased CT density can be seen in the supratentorial white matter, worse on the left. ??Vascular calcifications are noted.. No focal intraparenchymal hemorrhage can be identified. ??If the patient's symptoms persist or worsen, a followup brain CT or a scheduled brain MRI may be considered for further evaluation. Procedure Note Feliciano Bruce MD - 12/28/2016 EXAMINATION: CT BRAIN WITHOUT CONTRAST. Indication: Weakness. 76 y.o. female with a past medical history that includes --TIA-- presents to the ER c/o left leg weakness. Patient states that she feels she has had another TIA because her left leg is weaker than normal, and she cannot lift it when she is laying on the bed. She started experiencing this weakness at about 10 AM this morning and it has been constant since. Technique: Noncontrast axial images of the brain were performed at the time of the patient's presentation. This is a screening study. Additional coronal reformatted images were performed with the CT scanner software. This CT report was transcribed with a computerized speech recognition system. In an effort to expedite patient care, it has not been adjusted for typographical, grammatical or syntax problems by a trained registered medical assistant. Findings: There is no intracranial mass-effect or midline shift identified. The ventricular system is at the upper limits of normal in size. Patchy areas of decreased CT density can be seen in the supratentorial white matter, worse on the left. Vascular calcifications are noted.. No focal intraparenchymal hemorrhage can be identified. If the patient's symptoms persist or worsen, a followup brain CT or a scheduled brain MRI may be considered for further evaluation. IMPRESSION No acute findings in the brain. Noncontrast brain CT. Please see above. Julio Epstein DO CT ORDERABLES * CREATININE BLOOD - POINT OF CARE (IP) (12/28/2016 6:24 PM CDT) Creatinine POCT 0.87 0.7 - 1.2 mg/dL [facility] POCT TEST[facility] QC Verified Yes Yes [facility] POC T TESTING Blood BLOOD SPECIMEN / Unknown 12/28/2016 6:24 PM CDT Jluio Epstein DO LAB - POINT OF CAR E ORDERABLES [facility] [address] [phone] * PT-INR (12/28/2016 6:14 PM CDT) PT 10.1 9.5 - 11.6 sec 12/28/2016 6:32 PM CDT [facility] INR 1.0 0.9 - 1.1 12/28/2016 6:32 PM CDT [facility] Blood BLOOD SPECIMEN / Unknown Venipuncture / Unknown 12/28/2016 6:14 PM CDT 12/28/2016 6:17 PM CDT Narrative [facility] - 12/28/2016 6:32 PM CDT Conventional Warfarin Anticoagulant Therapy: INR Reference Range: ??2.0-3.0 Intensive Warfarin Anticoagulant Therapy: INR Reference Range: ? 2.5-3.5 Julio Epstein DO LAB - COAGULATION ORDERABLES [facility] [address] [place] [address] * (ABNORMAL) COMPREHENSIVE METABOLIC PANEL (12/28/2016 6:14 PM CDT) Glucose 132(H) 74 - 106 mg/dL 12/28/2016 6:38 PM CDT [facility] Sodium 145 136 - 145 mmol/L 12/28/2016 6:38 PM CDT [facility] Potassium 3.9 3.5 - 5.1 mmol/L 12/28/2016 6:38 PM CDT [facility] Chloride 111(H) 98 - 107 mmol/L 12/28/2016 6:38 PM CDT [facility] CO2 27 22 - 31 mmol/L 12/28/2016 6:38 PM CDT [facility] Calcium 9.7 8.5 - 10.1 mg/dL 12/28/2016 6:38 PM CDT [facility] Anion Gap 7(L) 8 - 16 mmol/L 12/28/2016 6:38 PM CDT [facility] BUN 17 7 - 21 mg/dL 12/28/2016 6:38 PM CDT [facility] Creatinine 0.97 0.50 - 1.30 mg/dL 12/28/2016 6:38 PM CDT [facility] Alkaline Phosphatase 127(H) 38 - 126 U/L 12/28/2016 6:38 PM CDT [facility] ALT 25 13 - 61 U/L 12/28/2016 6:38 PM CDT [facility] AST 18 5 - 40 U/L 12/28/2016 6:38 PM CDT [facility] Protein Total 6.6 6.4 - 8.2 gm/dL 12/28/2016 6:38 PM CDT [facility] Albumin 3.6 3.4 - 5.0 gm/dL 12/28/2016 6:38 PM CDT [facility] Bilirubin Total 0.2 0.2 - 1.0 mg/dL 12/28/2016 6:38 PM CDT [facility] eGFR by MDRD 56 mL/min/1.7 3m2 12/28/2016 6:38 PM CDT [facility] eGFR by MDRD >60 mL/min/1.7 3m2 12/28/2016 6:38 PM CDT [facility] Blood BLOOD SPECIMEN / Unknown Venipuncture / Unknown 12/28/2016 6:14 PM CDT 12/28/2016 6:17 PM CDT Julio Epstein DO LAB - CHEMISTRY OR DERABLES [facility] [address] [place] [address] * (ABNORMAL) CBC W AUTO DIFFERENTIAL (12/28/2016 6:14 PM CDT) WBC 7.6 4.4 - 10.7 x10E9/L 12/28/2016 6:20 PM CDT [facility] WBC Corrected x10E9/L 12/28/2016 6:20 PM CDT [facility] RBC 4.83 3.80 - 5.20 x10E12/L 12/28/2016 6:20 PM CDT [facility] Hemoglobin 11.5(L) 12.0 - 15.6 gm/dL 12/28/2016 6:20 PM CDT [facility] Hematocrit 37.1 35.9 - 45.5 % 12/28/2016 6:20 PM CDT [facility] MCV 76.8(L) 80.7 - 98.3 fl 12/28/2016 6:20 PM CDT [facility] MCH 23.8(L) 26.7 - 34.0 pg 12/28/2016 6:20 PM CDT [facility] MCHC 31.0 30.8 - 35.9 gm/dL 12/28/2016 6:20 PM CDT [facility] Platelet Count 318 153 - 416 x10E9/L 12/28/2016 6:20 PM CDT [facility] RDW-CV 20.6(H) 12.1 - 14.9 % 12/28/2016 6:20 PM CDT [facility] MPV 10.2 9.4 - 12.9 fl 12/28/2016 6:20 PM CDT [facility] Neutrophils % 59.9 44.0 - 73.0 % 12/28/2016 6:20 PM CDT [facility] Lymphocytes % 25.4 20.0 - 43.0 % 12/28/2016 6:20 PM CDT [facility] Monocytes % 10.9 5.0 - 13.0 % 12/28/2016 6:20 PM CDT [facility] Eosinophils % 3.0 0.0 - 6.0 % 12/28/2016 6:20 PM CDT [facility] Basophils % 0.5 0.0 - 2.0 % 12/28/2016 6:20 PM CDT [facility] Immature Granulocytes 0.3 0 - 1 % 12/28/2016 6:20 PM CDT [facility] Neutrophil Absolute 4.58 2.01 - 7.14 x10E9/L 12/28/2016 6:20 PM CDT [facility] Lymphocytes Absolute 1.94 1.07 - 3.94 x10E9/L 12/28/2016 6:20 PM CDT [facility] Monocytes Absolute 0.83 0.26 - 1.07 x10E9/L 12/28/2016 6:20 PM CDT [facility] Eosinophils Absolute 0.23 0 - 0.47 x10E9/L 12/28/2016 6:20 PM CDT [facility] Basophils Absolute 0.04 0 - 0.08 x10E9/L 12/28/2016 6:20 PM CDT [facility] Immature Granulocytes Absolute 0.02 0.00 - 0.06 x10E9/L 12/28/2016 6:20 PM CDT [facility] nRBC Auto 0 /100 WBC 12/28/2016 6:20 PM CDT [facility] Blood BLOOD SPECIMEN / Unknown Venipuncture / Unknown 12/28/2016 6:14 PM CDT 12/28/2016 6:17 PM CDT [place] DO LAB - HEMATOLOGY O RDERABLES [facility] [address] [place] [address] * TROPONIN I (12/28/2016 6:14 PM CDT) Pathologist [facility] Troponin I <0.015 0.000 - 0.049 ng/mL 12/28/2016 6:38 PM CDT [facility] Blood BLOOD SPECIMEN / Unknown Venipuncture / Unknown 12/28/2016 6:14 PM CDT 12/28/2016 6:17 PM CDT Narrative [facility] - 12/28/2016 6:38 PM CDT Note: Diagnosis of myocardial infarction [...] as pulmonary embolism, renal failure and sepsis. Julio Epstein DO LAB - CHEMISTRY OR DERABLES [facility] [id number] [place] [address] * EKG 12-LEAD (12/28/2016 5:43 PM CDT) Pathologist [facility] Ventricular Rate 71 BPM [facility] M[facility] Atrial Rate 71 BPM [facility] P-R Interval 166 ms [facility]USE QRS Duration ms 100 ms [facility]USE Q-T Interval ms 424 ms [facility] QTC Calculation (Bezet) 460 ms [facility] MUSE Calculated P [place] 4 degrees [facility]USE Calculated R [place] -30 degrees [facility] Calculated T [place] 36 degrees [facility] Interpretation EKG Normal sinus rhythm Left axis deviation Cannot rule out Septal infarct , age undetermined Abnormal ECG No previous ECGs available Confirmed by KENY JACKSON MD ([id number]) on 12/30/2016 8:54:42 PM DP MUSE 12/28/2016 5:43 PM CDT 12/30/2016 8:54 PM CDT [place] DO ECG ORDERABLES [facility] documented in this encounter Visit Diagnoses Diagnosis Weakness- Primary Other malaise and fatigue Weakness Other malaise and fatigue 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 2 ml for saline lock flush. 10 ml for syringe flush. amitriptyline (ELAVIL) tablet 25 mg 25 mg, Oral, AT BEDTIME, First dose on 12/28/16 at 2245, Until Discontinued $ Given 12/30/2016 8:24 PM CDT 25 mg $ Given 12/29/2016 8:57 PM CDT 25 mg $ Given 12/28/2016 10:33 PM CDT 25 mg amLODIPine (NORVASC) tablet 10 mg 10 mg, Oral, DAILY, First dose on 12/29/16 at 0900, Until Discontinued $ Given 12/31/2016 8:24 AM CDT 10 mg $ Given 12/30/2016 8:45 AM CDT 10 mg $ Given 12/29/2016 10:04 AM CDT 10 mg aspirin (ASPIRIN) chew tablet 81 mg 81 mg, Oral, DAILY, First dose on 12/28/16 at 2030, Until Discontinued $ Given 12/31/2016 8:24 AM CDT 81 mg $ Given 12/30/2016 8:45 AM CDT 81 mg $ Given 12/29/2016 10:05 AM CDT 81 mg atorvastatin (LIPITOR) tablet 40 mg 40 mg, Oral, AT BEDTIME, First dose on 12/28/16 at 2245, Until Discontinued $ Given 12/30/2016 8:24 PM CDT 40 mg $ Given 12/29/2016 8:57 PM CDT 40 mg $ Given 12/28/2016 10:33 PM CDT 40 mg bisacodyl (DULCOLAX) suppository 10 mg 10 mg, Rectal, DAILY PRN, Constipation, Starting on 12/30/16 at 0134, Until Fri12/31/16 at 1557 $ Given 12/30/2016 1:46 AM CDT 10 mg clopidogrel (plaVIX) tablet 75 mg 75 mg, Oral, AT BEDTIME, First dose on 12/28/16 at 2100, Until Discontinued $ Given 12/30/2016 8:24 PM CDT 75 mg $ Given 12/29/2016 8:57 PM CDT 75 mg $ Given 12/28/2016 8:58 PM CDT 75 mg cyanocobalamin (VITAMIN B-12) tablet 1,000 mcg 1,000 mcg, Oral, DAILY, First dose on Fri12/29/16 at 0900, Until Discontinued $ Given 12/31/2016 8:24 AM C DT 1,000 mcg $ Given 12/30/2016 8:45 AM CDT 1,000 mcg $ Given 12/29/2016 10:04 AM CDT 1,000 mcg dextrose injection 12.5-25 g 12.5-25 g (25-50 mL), Intravenous, PRN, Bedside Glucose less than 70 mg/dL -If NOT able to eat and/or NPO and with IV Access, Starting on Fri12/28/16 at 1846, Until Fri12/31/16 at 1557, If NOT able to eat and/or NPO [...] 80 mg/dl. NOTIFY PROVIDER OF HYPOGLYCEMIC EVENT. enoxaparin (LOVENOX) injection 40 mg 40 mg, Subcutaneous, DAILY AT 0600, First dose on Fri12/29/16 at 0815, Until Discontinued, (for prefilled syringes) do not expel air bubble from the syringe prior to the injection Remind Patient to not rub injection site. Could cause hematoma. $ Given 12/31/2016 5:08 AM CDT 40 mg Abdominal Tissue $ Given 12/29/2016 10:04 AM CDT 40 mg A bdominal Tissue flecainide (TAMBOCOR) tablet 50 mg 50 mg, Oral, 2 TIMES DAILY, First dose on 12/28/16 at 2245, Until Discontinued $ Given 12/31/2016 8:24 AM CDT 50 m g $ Given 12/30/2016 8:24 PM CDT 50 mg $ Given 12/30/2016 8:45 AM CDT 50 mg gadoterate meglumine (DOTAREM) injection Intravenous, CONTRAST ONCE, Starting on Fri12/30/16 at 1454, Until Fri12/31/16 at 1557 $ Given 12/30/2016 2:55 PM CDT 15 mL glucagon (GLUCAGEN) injection 1 mg 1 mg, Intramuscular, PRN, Bedside Glucose less than 70 mg/dL - If NOT able to eat and/or NPO and withOUT IV Access, Starting on 12/28/16 at 1846, Until Fri12/31/16 at 1557, If NOT able to eat and/or NPO [...] does not have swallowing difficulties, Starting on Fri12/28/16 at 1846, Until Fri12/31/16 at 1557, If able to eat and does not [...] TIMES DAILY WITH MEALS, First dose on 12/28/16 at 1930, Until Discontinued, Low Dose: Correction Insulin BG (mg/dL) Corrective Action LESS than 70: follow Hypoglycemic guidelines, 70-180: NO Correction insulin, 181-220: GIVE 2 units of insulin, 221-260: GIVE 3 units of insulin, 261-300: GIVE 4 units of insulin, 301-350: GIVE 5 units of insulin, Greater than 350: GIVE 6 units of insulin and Notify Physician., If the patient is NPO: DO NOT HOLD correction insulin If patient is eating meals and has orders for Mealtime insulin, combine and give at the same time. $ Given 12/31/2016 11:46 AM CDT 2 Units Right Arm insulin detemir (LEVEMIR) pen 7 Units 7 Units, Subcutaneous, AT BEDTIME, First dose on 12/28/16 at 2245, Until Discontinued, ............. DO NOT HOLD even if patient is NPO Consider calling physician for dose reduction if patient is made NPO. Body mass index is 35.28 kg/(m^2). . WASTE DISPOSAL INSTRUCTIONS: Black Bin Disposal required. $ Given 12/30/2016 10:06 PM CDT 7 Units Righ t Arm $ Given 12/29/2016 10:06 PM CDT 7 Units R ight Arm $ Given 12/28/2016 11:00 PM CDT 7 Units A bdominal Tissue iodixanol (VISIPAQUE 320) injection Intravenous, CONTRAST ONCE, Starting on 12/28/16 at 1820, Until 12/30/16 at 1819 $ Given - Contrast 12/28/2016 6:23 PM CDT 80 mL iron polysaccharides (NIFEREX 150) capsule 150 mg 150 mg, Oral, DAILY, First dose on 12/29/16 at 1300, Until Discontinued $ Given 12/30/2016 1:22 PM CDT 150 mg $ Given 12/29/2016 1:34 PM CDT 150 mg latanoprost (XALATAN) 0.005 % ophthalmic solution 1 Drop 1 drop, Each Eye, AT BEDTIME, First dose on 12/30/16 at 2115, Until Discontinued, Allow at least 5 minutes between administration of multiple ophthalmic products Once opened, store at room temperature $ Given 12/30/2016 10:06 PM CDT 1 drop lidocaine (LIDODERM) 5 % patch 1 Patch 1 patch, Administer over 12 Hours, DAILY, First dose on 12/30/16 at 0930, Until Discontinued, Apply to low back and remove patch after a max of 12 hours of application within a 24 hour period. pantoprazole EC (PROTONIX) tablet 40 mg 40 mg, Oral, DAILY, First dose on 12/29/16 at 0900, Until Discontinued, Do not crush, chew, or cut in half. $ Given 12/31/2016 8:24 AM CDT 40 mg $ Given 12/30/2016 8:45 AM CDT 40 mg $ Given 12/29/2016 10:04 AM CDT 40 mg potassium chloride (KLOR-CON M) tablet 10 mEq 10 mEq, Oral, DAILY, First dose on 12/29/16 at 0900, Until Discontinued, Swallow whole, do not crush, chew or break. May cut in half but do not crush or chew. $ Given 12/31/2016 8:24 AM CDT 10 mEq $ Given 12/30/2016 8:45 AM CDT 10 mEq $ Given 12/29/2016 10:04 AM CDT 10 mEq documented in this encounter Active and Recently Administered Medications Times are shown in CDT. Scheduled Medication Order 12/29/2016 12/30/2016 12/31/2016 amitriptyline (ELAVIL) tablet 25 mg 25 mg, Oral, AT BEDTIME, First dose on 12/28/16 at 2245, Until Discontinued 2056 ($ Given - Provider: Aruna Alanis RN) 2023 ($ Given - Provider: Nadja Curry RN) amLODIPine (NORVASC) tablet 10 mg 10 mg, Oral, DAILY, First dose on 12/29/16 at 0900, Until Discontinued 1004 ($ Given - Provider: Iliana Duke RN) 0845 ($ Given - Provider: Pinky Landa) 0824 ($ Given - Provider: Pinky Landa) aspirin (ASPIRIN) chew tablet 81 mg 81 mg, Oral, DAILY, First dose on 12/28/16 at 2030, Until Discontinued 1005 ($ Given - Provider: Iliana Duke RN) 0845 ($ Given - Provider: Pinky Landa) 0824 ($ Given - Provider: Pinky Landa) atorvastatin (LIPITOR) tablet 40 mg 40 mg, Oral, AT BEDTIME, First dose on 12/28/16 at 2245, Until Discontinued 2056 ($ Given - Provider: Aruna Alanis, DES) 2023 ($ Given - Provider: Nadja Curry, DES) clopidogrel (plaVIX) tablet 75 mg 75 mg, Oral, AT BEDTIME, First dose on 12/28/16 at 2100, Until Discontinued 2056 ($ Given - Provider: Aruna Alanis RN) 2023 ($ Given - Provider: Nadja Curry, DES) cyanocobalamin (VITAMIN B-12) tablet 1,000 mcg 1,000 mcg, Oral, DAILY, First dose on 12/29/16 at 0900, Until Discontinued 1004 ($ Given - Provider: Iliana Duke RN) 0845 ($ Given - Provider: Pinky Landa) 0824 ($ Given - Provider: Pinky Landa) enoxaparin (LOVENOX) injection 40 mg 40 mg, Subcutaneous, DAILY AT 0600, First dose on 12/29/16 at 0815, Until Discontinued, (for prefilled syringes) do not expel air bubble from the syringe prior to the injection Remind Patient to not rub injection site. Could cause hematoma. 1004 ($ Given - Provider: Iliana Duke RN) 0443 (Not Administered - Provider: Aruna Alanis RN - Reason: Refused-Patient) 0508 ($ Given - Provider: Nadja Curry, DES) flecainide (TAMBOCOR) tablet 50 mg 50 mg, Oral, 2 TIMES DAILY, First dose on 12/28/16 at 2245, Until Discontinued 1005 ($ Given - Provider: Iliana Duke RN)2056 ($ Given - Provider: Aruna Alanis RN) 0845 ($ Given - Provider: Pinky Landa)2023 ($ Given - Provider: Nadja Curry, DES) 0824 ($ Given - Provider: Pinky Landa) gadoterate meglumine (DOTAREM) injection Intravenous, CONTRAST ONCE, Starting on Fri12/30/16 at 1454, Until Fri12/31/16 at 1557 1455 ($ Given - Provider: Rashad Patel, RT(R)) insulin aspart (NovoLOG) pen 0-6 Units 0-6 Units, Subcutaneous, 3 TIMES DAILY WITH MEALS, First dose on 12/28/16 at 1930, Until Discontinued, Low Dose: Correction Insulin BG (mg/dL) Corrective Action LESS than 70: follow Hypoglycemic guidelines, 70-180: NO Correction insulin, 181-220: GIVE 2 units of insulin, 221-260: GIVE 3 units of insulin, 261-300: GIVE 4 units of insulin, 301-350: GIVE 5 units of insulin, Greater than 350: GIVE 6 units of insulin and Notify Physician., If the patient is NPO: DO NOT HOLD correction insulin If patient is eating meals and has orders for Mealtime insulin, combine and give at the same time. 1118 (Not Administered - Provider: Iliana Duke RN - Reason: Per Administration Instructions)1334 (Not Administered - Provider: Iliana Duke RN - Reason: Per Administration Instructions)1742 (Not Administered - Provider: Iliana Duke RN - Reason: Per Administration Instructions) 0851 (Not Administered - Provider: Pinky Landa - Reason: Patient Condition)1220 (Not Administered - Provider: Pinky Landa - Reason: Patient Condition)1800 (Due) 0817 (Not Administered - Provider: Pinky Landa - Reason: Patient Condition)1146 ($ Given - Provider: Pinky Landa) insulin detemir (LEVEMIR) pen 7 Units 7 Units, Subcutaneous, AT BEDTIME, First dose on 12/28/16 at 2245, Until Discontinued, ............. DO NOT HOLD even if patient is NPO Consider calling physician for dose reduction if patient is made NPO. Body mass index is 35.28 kg/(m^2). . WASTE DISPOSAL INSTRUCTIONS: Black Bin Disposal required. 2205 ($ Given - Provider: Aruna Alanis RN) 2205 ($ Given - Provider: Nadja Curry, DES) iron polysaccharides (NIFEREX 150) capsule 150 mg 150 mg, Oral, DAILY, First dose on Fri12/29/16 at 1300, Until Discontinued 1334 ($ Given - Provider: Iliana Duke RN) 1322 ($ Given - Provider: Pinky Landa) 1300 (Due - Provider: Tomás Montes De Oca [facility]) latanoprost (XALATAN) 0.005 % ophthalmic solution 1 Drop 1 drop, Each Eye, AT BEDTIME, First dose on Fri12/30/16 at 2115, Until Discontinued, Allow at least 5 minutes between administration of multiple ophthalmic products Once opened, store at room temperature 2205 ($ Given - Provider: Nadja Curry RN) lidocaine (LIDODERM) 5 % patch 1 Patch 1 patch, Administer over 12 Hours, DAILY, First dose on Fri12/30/16 at 0930, Until Discontinued, Apply to low back and remove patch after a max of 12 hours of application within a 24 hour period. 1752 (Not Administered - Provider: Pinky Landa - Reason: Patient Condition) 0827 (Not Administered - Provider: Pinky Landa - Reason: Patient Condition) pantoprazole EC (PROTONIX) tablet 40 mg 40 mg, Oral, DAILY, First dose on Fri12/29/16 at 0900, Until Discontinued, Do not crush, chew, or cut in half. 1004 ($ Given - Provider: Iliana Duke RN) 0845 ($ Given - Provider: Pinky Landa) 0824 ($ Given - Provider: Pinky Landa) potassium chloride (KLOR-CON M) tablet 10 mEq 10 mEq, Oral, DAILY, First dose on Fri12/29/16 at 0900, Until Discontinued, Swallow whole, do not crush, chew or break. May cut in half but do not crush or chew. 1004 ($ Given - Provider: Iliana Duke RN) 0845 ($ Given - Provider: Pinky Landa) 0824 ($ Given - Provider: Pinky Landa) PRN Medication Order 12/29/2016 12/30/2016 12/31/2016 0.9% NaCl injection 2-10 mL 2-10 mL, Intracatheter, PRN, Other, PIV flush, Starting on 12/28/16 at 1744, Until Fri12/31/16 at 1557, PIV flush Use positive pressure technique for last 0.5 ml. 2 ml for saline lock flush. 10 ml for syringe flush. acetaminophen (TYLENOL) tablet 650 mg 650 mg, Oral, EVERY 4 HOURS PRN, Fever, Starting on 12/28/16 at 1955, Until Fri12/31/16 at 1557 acetaminophen (TYLENOL) tablet 650 mg 650 mg, Oral, EVERY 4 HOURS PRN, Mild Pain, Starting on 12/28/16 at 1955, Until Fri12/31/16 at 1557 artificial tears ophthalmic solution 1 Drop 1 drop, Each Eye, PRN, Dry Eyes, Starting on Fri12/30/16 at 1412, Until Fri12/31/16 at 1557 bisacodyl (DULCOLAX) suppository 10 mg 10 mg, Rectal, DAILY PRN, Constipation, Starting on Fri12/30/16 at 0134, Until Fri12/31/16 at 1557 0146 ($ Given - Provider: Mahsa Alanis RN) dextrose injection 12.5-25 g(Linked Group 1) 12.5-25 g (25-50 mL), Intravenous, PRN, Bedside Glucose less than 70 mg/dL -If NOT able to eat and/or NPO and with IV Access, Starting on 12/28/16 at 1846, Until Fri12/31/16 at 1557, If NOT able to eat and/or NPO [...] OF HYPOGLYCEMIC EVENT. glucagon (GLUCAGEN) injection 1 mg(Linked Group 1) 1 mg, Intramuscular, PRN, Bedside Glucose less than 70 mg/dL - If NOT able to eat and/or NPO and withOUT IV Access, Starting on 12/28/16 at 1846, Until Fri12/31/16 at 1557, If NOT able to eat and/or NPO [...] OF HYPOGLYCEMIC EVENT. glucose (Diabetic Use) oral gel(Linked Group 1) Oral, PRN, Other, Bedside Glucose less than 70 mg/dL -If able to eat and does not have swallowing difficulties, Starting on 12/28/16 at 1846, Until Fri12/31/16 at 1557, If able to eat and does not [...] 80 mg/dl. NOTIFY PROVIDER OF HYPOGLYCEMIC EVENT. ondansetron (ZOFRAN) injection 4 mg 4 mg, Intravenous, EVERY 4 HOURS PRN, Nausea/Vomiting, Starting on 12/28/16 at 1955, Until Fri12/31/16 at 1557 petrolatum-zinc Oxide (SENSI-CARE) ointment Topical, PRN, Other, Starting on 12/30/16 at 1412, Until Fri12/31/16 at 1557 Linked Groups Order Group 1: glucose (Diabetic Use) oral gelJump to med Oral, PRN, Other, Bedside Glucose less than 70 mg/dL -If able to eat and does not have swallowing difficulties, Starting on 12/28/16 at 1846, Until Fri12/31/16 at 1557, If able to eat and does not [...] NOTIFY PROVIDER OF HYPOGLYCEMIC EVENT. Or dextrose injection 12.5-25 gJump to med 12.5-25 g (25-50 mL), Intravenous, PRN, Bedside Glucose less than 70 mg/dL -If NOT able to eat and/or NPO and with IV Access, Starting on 12/28/16 at 1846, Until Fri12/31/16 at 1557, If NOT able to eat and/or NPO [...] mg/dl. NOTIFY PROVIDER OF HYPOGLYCEMIC EVENT. Or glucagon (GLUCAGEN) injection 1 mgJump to med 1 mg, Intramuscular, PRN, Bedside Glucose less than 70 mg/dL - If NOT able to eat and/or NPO and withOUT IV Access, Starting on 12/28/16 at 1846, Until Tu12/31/16 at 1557, If NOT able to eat and/or NPO and NO IV Access: For Bedside glucose 50- 69 mg/dL Give 1 mg IM or SQ For Bedside Glucose LESS than 50 mg/dl verify with a second bedside glucose (from a different site) and Give 1 mg IM or SQ Re-check and Re- treat blood glucose EVERY 10-25 minutes until blood glucose GREATER than or equal to 80 mg/dl. NOTIFY PROVIDER OF HYPOGLYCEMIC EVENT. documented in this encounter Care Teams Therapist Relationship Specialty Start Date End Date Etienne Florez MD Orthopedic Surgery 12/09/14 documented as of this encounter
--- OUTSIDE RECORDS SUMMARY | 2024-05-26 12:44 | XMS_ITS | Encounter Summary ---
Author Organization [facility] Address [address] [place] [address] Care Team Providers Care Melt Supervisor Name Role Phone Etienne Florez MD Unavailable [phone] Reason for Visit * Reason Onset Date Comments Forms 06/16/2017 Encounter Details Date Type Department Care Team (Late st Contact Info) Description 06/16/2017 Telephone [facility] - Family Medicine [address] [place] [address] [address] [place] [address] Jarrell Garrison MD [address] [facility] [address] [phone] Forms Social History Tobacco Use Types Packs/Day Years [...] Telephone Encounter - Jarrell Garrison MD - 06/17/2017 3:37 PM CST Will follow up once information received M GATHERER * Telephone Encounter - Rajiv Beasley - 06/16/2017 3:24 PM CST Pt states her labs may need a signature but not really sure what she is to do with them. Pt advisedto bring papers to office. She will be in the office 06/18/17. M GATHERER documented in this encounter Plan of Treatment Not on file documented as of this encounter Goals Goal Patient Goal Type Associated Problems Recent Progress Patient-Stated? Author Blood Pressure < 140/90 Blood Pressure 127/52(2022 8:09 AM CREAM GATHERER) No Alisa Jaramillo HEMOGLOBIN A1C < 7.0 Result Component 5.4( 12:00 AM CDT) No Alisa Jaramillo documented as of this encounter Visit Diagnoses Not on filedocumented in this encounter Care Teams Melt Supervisor Relationship Specialty Start Date End Date Etienne Florez MD Orthopedic Surgery 12/09/14 documented as of this encounter
--- OUTSIDE RECORDS SUMMARY | 2024-05-26 12:44 | XMS_ITS | Encounter Summary ---
Author Organization [facility] Health Address [address] [facility] [place] [address] Care Team Providers Care Sorting Machine Attendant Name Role Phone Etienne Florez MD Unavailable [phone] Encounter Details Date Type Department Care Team (Late st Contact Info) Description 01/27/2017 Orders Only [facility] Health Neurosciences [address] [facility] [address] [place] [phone] [place] [address] [facility] [address] [place] [address] Social History Tobacco Use Types Packs/Day Years [...] < 140/90 Blood Pressure 127/52(2022 8:09 AM MEMORY CARE PROGRAM RESIDENT) No Alsia Jaramillo HEMOGLOBIN A1C < 7.0 Result Component 5.4( 12:00 AM CDT) No Alisa Jaramillo documented as of this encounter Procedures Procedure Name Priority Date/Time Associated Diagnosis Comments CULTURE URINE REFLEXED I 01/27/2017 1:55 PM CDT documented in this encounter Results * CULTURE URINE REFLEXED I (01/27/2017 1:55 PM CDT) Reflexive Urine Culture NO CULTURE INDICATED [facility] Comment: Test Performed at: [facility] [address] ??[id number] ELIE HAMLIN DO,MPH 01/27/2017 1:55 PM CDT 01/27/2017 1:55 PM CDT Nelson Ross MD LAB - MICROBIOLOGY ORDERABLES Performing Organization Address City/State/[facility] [place] Phone Number [facility] [address] [place] [address] documented in this encounter Visit Diagnoses Not on filedocumented in this encounter Care Teams Sorting Machine Attendant Relationship Specialty Start Date End Date Etienne Florez MD Orthopedic Surgery 12/09/14 documented as of this encounter
--- OUTSIDE RECORDS SUMMARY | 2024-05-26 12:44 | XMS_ITS | Encounter Summary ---
Author Organization [facility] Address [address] [facility] [place] [address] Care Team Providers Care Mangle Feeder Name Role Phone Etienne Florez MD Unavailable [phone] Reason for Visit * Reason Onset Date Comments Abnormal Imaging 07/07/2017 Encounter Details Date Type Department Care Team (Late st Contact Info) Description 07/07/2017 Telephone [facility] Breast Care [address] [place] [id number] Alice Mcnulty Abnormal Imaging Social History Tobacco Use Types Packs/Day Years [...] Miscellaneous Notes * Telephone Encounter - Alice Mcnulty - 07/07/2017 12:30 PM CST I called Ms. Leon and let her know we need her to return for additional breast imaging. (per 07/02/17 screening mammogram read) She is scheduled for 07/18/17 at 10:30 am O GAMES MECHANIC documented in this encounter Plan of Treatment Not on file documented as of this encounter Goals Goal Patient Goal Type Associated Problems Recent Progress Patient-Stated? Author Blood Pressure < 140/90 Blood Pressure 127/52(2022 8:09 AM VIDEO GAMES MECHANIC) No Alisa Jaramillo HEMOGLOBIN A1C < 7.0 Result Component 5.4( 12:00 AM CDT) No Alisa Jaramillo documented as of this encounter Visit Diagnoses Not on filedocumented in this encounter Care Teams Mangle Feeder Relationship Specialty Start Date End Date Etienne Florez MD Orthopedic Surgery 12/09/14 documented as of this encounter
--- OUTSIDE RECORDS SUMMARY | 2024-05-26 12:44 | XMS_ITS | Encounter Summary ---
Author Organization [facility] Health Address [address] [facility] [place] [address] Care Team Providers Care Manufacturers Agent Name Role Phone Etienne Florez MD Unavailable [phone] Reason for Visit * Reason Onset Date Comments MEDICATION REFILL 04/02/2017 Encounter Details Date Type Department Care Team (Late st Contact Info) Description 04/02/2017 Refill [facility] Health Neurosciences [address] [facility] [address] [place] [phone] [place] [address] [facility] [address] [place] [phone] MEDICATION REFILL Social History Tobacco Use [...] * Telephone Encounter - Mila Jeronimo - 04/02/2017 10:06 AM CST Pt is wanting to increase dosage back to 50mg. [facility]. Requested Prescriptions Pending Prescriptions Disp Refills ??? amitriptyline (ELAVIL) 25 MG tablet 90 tablet 3 Sig: Take 1 tablet by mouth at bedtime Last OV 01/13/17 Last RF 04/02/16 [facility] documented in this encounter Plan of Treatment Not on file documented as of this encounter Goals Goal Patient Goal Type Associated Problems Recent Progress Patient-Stated? Author Blood Pressure < 140/90 Blood Pressure 127/52(2022 8:09 AM BLOWING WEASAND) No Alisa Jaramillo HEMOGLOBIN A1C < 7.0 Result Component 5.4( 12:00 AM CDT) No Alisa Jaramillo documented as of this encounter Visit Diagnoses Not on filedocumented in this encounter Care Teams Manufacturers Agent Relationship Specialty Start Date End Date Etienne Florez MD Orthopedic Surgery 12/09/14 documented as of this encounter
--- OUTSIDE RECORDS SUMMARY | 2024-05-26 12:44 | XMS_ITS | Encounter Summary ---
Author Organization [facility] Address [address] [place] [address] Care Team Providers Care Swimming Professor Name Role Phone Etienne Florez MD Unavailable [phone] Reason for Visit * Reason Onset Date Comments MEDICATION REFILL 11/05/2016 Encounter Details Date Type Department Care Team (Late st Contact Info) Description 11/05/2016 Refill [facility] - Family Medicine [address] [place] [address] [address] [place] [address] Jarrell Garrison MD [facility] [address] [address] MEDICATION REFILL Social History Tobacco Use Types Packs/Day Years Used Date Smoking Tobacco: Never Smokeless Tobacco: Never Alcohol Use Standard Drinks/Week Comments No 0 (1 standard drink = 0.6 oz pur e alcohol) Sex and Gender Information Value Date Recorded Sex Assigned at Not on file Gender Identity Not on file Sexual Orientation Not on file documented as of this encounter Miscellaneous Notes * Telephone Encounter - Karla Horton - 11/05/2016 9:28 AM CDT Perlamainor Leon Allergies Allergen Reactions ??? Advair Diskus YEAS INFECTION ??? Aricept [Donepezil] ??? Diltiazem Swelling ??? Metformin Other reaction(s): Other (See Comments) unknown Requested Prescriptions Pending Prescriptions Disp Refills ??? rosuvastatin (CRESTOR) 10 MG tablet 90 Tab 0 Sig: Take 1 Tab by mouth at bedtime Last Refill: 08/01/16 Last OV: 07/17/16 Next OV:12/10/16 documented in this encounter Plan of Treatment Not on file documented as of this encounter Visit Diagnoses Not on filedocumented in this encounter Care Teams Swimming Professor Relationship Specialty Start Date End Date Etienne Florez MD Orthopedic Surgery 12/09/14 documented as of this encounter
--- OUTSIDE RECORDS SUMMARY | 2024-05-26 12:44 | XMS_ITS | Encounter Summary ---
Author Organization [facility] Address [address] [place] [address] Care Team Providers Care Coal Carrier Name Role Phone Etienne Florez MD Unavailable [phone] Reason for Visit * Reason Onset Date Comments MEDICATION REFILL 06/25/2017 Encounter Details Date Type Department Care Team (Late st Contact Info) Description 06/25/2017 Refill [facility] - Family Medicine [address] [place] [address] [address] [place] [address] Jarrell Garrison MD [facility] [address] [address] MEDICATION REFILL Social History Tobacco [...] * Telephone Encounter - Milton Naidu - 06/25/2017 8:45 AM CST Pt states that her specilist will not be covering this medication for her anymore and is requestingPCP to start covering it for her. DER [employer] * Telephone Encounter - Milton Naidu - 06/25/2017 8:42 AM CST Perla Leon Allergies Allergen Reactions ??? Advair Diskus YEAS INFECTION ??? Aricept [Donepezil] ??? Diltiazem Swelling ??? Metformin Other reaction(s): Other (See Comments) unknown ??? Fluticasone Other reaction(s): Other (See comments) Reaction: colon problems, ??? Piper Longum ??? Salmeterol Other reaction(s): Other (See comments) Reaction: colon problems, Requested Prescriptions Pending Prescriptions Disp Refills ??? potassium chloride (KLOR-CON 10) 10 MEQ tablet Sig: Take 1 tablet by mouth once daily Take 4 tabs with breakfast Last Refill: 04/02/17 Last OV: 06/10/17 Next OV: 09/10/17 DER [place] [employer] documented in this encounter Plan of Treatment Not on file documented as of this encounter Goals Goal Patient Goal Type Associated Problems Recent Progress Patient-Stated? Author Blood Pressure < 140/90 Blood Pressure 127/52(2022 8:09 AM GRINDER [employer]) No Alisa Jaramillo HEMOGLOBIN A1C < 7.0 Result Component 5.4( 12:00 AM CDT) No Alisa Jaramillo documented as of this encounter Visit Diagnoses Not on filedocumented in this encounter Care Teams Coal Carrier Relationship Specialty Start Date End Date Etienne Florez MD Orthopedic Surgery 12/09/14 documented as of this encounter
--- OUTSIDE RECORDS SUMMARY | 2024-05-26 12:44 | XMS_ITS | Encounter Summary ---
Author Organization [facility] Address [address] [facility] [place] [address] Care Team Providers Care Assault Amphibious Vehicle Officer Name Role Phone Etienne Florez MD Unavailable [phone] Reason for Visit * Reason Onset Date Comments MEDICATION REFILL 12/04/2016 Encounter Details Date Type Department Care Team (Late st Contact Info) Description 12/04/2016 Refill [facility] - Family Medicine [address] [place] [address] [address] [place] [address] Jarrell Garrison MD [facility] [address] [address] MEDICATION REFILL Social History Tobacco [...] encounter Miscellaneous Notes * Telephone Encounter - Camille Lin - 12/04/2016 9:20 AM CDT Perla Edward Allergies Allergen Reactions ??? Advair Diskus YEAS INFECTION ??? Aricept [Donepezil] ??? Diltiazem Swelling ??? Metformin Other reaction(s): Other (See Comments) unknown Requested Prescriptions Pending Prescriptions Disp Refills ??? furosemide (LASIX) 40 MG tablet Sig: Take 1 Tab by mouth once daily ??? clopidogrel (PLAVIX) 75 MG tablet Sig: Take 1 Tab by mouth at bedtime Last Refill:clopidogrel (PLAVIX) 75 MG tablet historical ,furosemide (LASIX) 40 MG tablet historical Last OV: 07/17/16 Next OV: 12/10/16 documented in this encounter Plan of Treatment Not on file documented as of this encounter Visit Diagnoses Not on filedocumented in this encounter Care Teams Assault Amphibious Vehicle Officer Relationship Specialty Start Date End Date Etienne Florez MD Orthopedic Surgery 12/09/14 documented as of this encounter
--- OUTSIDE RECORDS SUMMARY | 2024-05-26 12:44 | XMS_ITS | Encounter Summary ---
Author Organization [facility] Address [address] [facility] [place] [address] Care Team Providers Care Breast Worker Name Role Phone Etienne Florez MD Unavailable [phone] Reason for Visit * Radiology Services (Routine) - Closed Specialty Diagnoses / Procedures Referred By Contandrea t Referred To Contact Mammography Diagnoses Breast cancer screening Procedures MAMMO SCREENING DIGITAL IMAGE BILAT MAMMO SCREENING DIGITAL IMAGE BILAT Jarrell Garrison MD [address] [facility] [address] [place] [address] Referral ID Status Reason Start Date Expiration Date Visits Re quested Visits Authorized [id number] Closed 06/10/2017 12/07/2017 1 1 Encounter Details Date Type Department Care Team (Late st Contact Info) Description 07/02/2017 10:32 AM CARGO SERVICES COORDINATOR - 07/02/2017 11:59 PM CARGO SERVICES COORDINATOR Hospital Encounter [facility] Breast Care [address] [place] [address] [address] [place] [address] Jarrell Garrison MD [address] [facility] [address] [place] [address] Discharge Disposition: Home or Self Care Social [...] 4 tabs with breakfast 90 tablet 1 06/25/2017 07/14/2017 psyllium (METAMUCIL) 58.6 % powderIndications:Cons tipation Take [...] < 140/90 Blood Pressure 127/52(2022 8:09 AM CARGO SERVICES COORDINATOR) No Alisa Jaramillo HEMOGLOBIN A1C < 7.0 Result Component 5.4( 12:00 AM CDT) No Alisa Jaramillo documented as of this encounter Procedures Procedure Name Priority Date/Time Associated Diagnosis Comments MAMMO BILAT SCREENING Routine 07/02/2017 10:56 AM CARGO SERVICES COORDINATOR Breast cancer screening documented in this encounter Results * MAMMO SCREENING DIGITAL IMAGE BILAT (07/02/2017 10:56 AM CARGO SERVICES COORDINATOR) Anatomical Region Laterality Modality Breast Bilateral Mammography 07/03/2017 3:37 PM CARGO SERVICES COORDINATOR Impressions 07/03/2017 3:43 PM CARGO SERVICES COORDINATOR Questioned spiculated mass in the upper outer left breast (CC 16, MLO 20). No mammographic evidence of malignancy in the right breast. ASSESSMENT: BIRADS Category 0: Incomplete - Needs additional imaging evaluation. RECOMMENDATION: Left breast diagnostic mammography and targeted ultrasound. Thank you for allowing us to participate in the care of your patient. [facility] Breast [facility] utilizes [employer] as a reminder system to notify patients of their next recommended mammogram. Narrative 07/03/2017 3:43 PM CARGO SERVICES COORDINATOR EXAMINATION: Digital screening mammogram on 07/02/2017. Low-dose full-field digital breast tomosynthesis examination was performed with synthetic 2D images and 3D acquisitions. Computer assisted detection was utilized. PRIOR: Prior mammograms just received from [facility] dated 04/26/2016, 11/18/2013, 07/24/2012, and left breast diagnostic mammograms 08/19/2012. BREAST PARENCHYMAL DENSITY: There are scattered areas of fibroglandular density. FINDINGS: Questioned spiculated mass in the upper outer left breast (CC 16, MLO 20). No suspicious masses, areas of architectural distortion or microcalcifications are evident on synthetic 2D mammogram or tomosynthesis images of the right breast. Jarrell Garrison MD MAMMO ORDERABLES documented in this encounter Visit Diagnoses Diagnosis Breast cancer screening Breast screening, unspecified documented in this encounter Care Teams Breast Worker Relationship Specialty Start Date End Date Etienne Florez MD Orthopedic Surgery 12/09/14 documented as of this encounter
--- OUTSIDE RECORDS SUMMARY | 2024-05-26 12:44 | XMS_ITS | Encounter Summary ---
Author Organization [facility] Address [address] [place] [address] Care Team Providers Care Billing Associate Name Role Phone Etienne Florez MD Unavailable Reason for Referral * Evaluate & Treat (Routine) - Closed Specialty Diagnoses / Procedures Referred By Contandrea t Referred To Contact Orthopedic Surgery / Orthopedics Diagnoses Arthralgia of lower leg, unspecified laterality Jarrell Garrison MD [address] [place] [address] [place] [address] [place] [address] Referral ID Status Reason Start Date Expiration Date V isits Requested Visits Authorized [id number] Closed Specialty Services Required 04/18/2017 10/15/2017 1 1 ING SUPERVISOR Encounter Details Date Type Department Care Team (Late st Contact Info) Description 04/18/2017 Orders Only [facility] - Family Medicine [address] [place] [address] [address] [place] [address] Jarrell Garrison MD [address] [facility] [address] [place] [address] Arthralgia of lower leg, unspecified laterality Social History Tobacco Use Types [...] of this encounter Plan of Treatment Scheduled Referrals Name Type Priority Associated Diagnoses Order Schedule AMB REFERRAL TO ORTHOPEDICS Outpatient Referral Routine Arthralgia of lower leg, unspecified laterality 1 Occurrences starting 04/18/2017 until 04/18/2018 documented as of this encounter Goals Goal Patient Goal Type Associated Problems Recent Progress Patient-Stated? Author Blood Pressure < 140/90 Blood Pressure 127/52(2022 8:09 AM SANDING SUPERVISOR) No Alisa Jaramillo HEMOGLOBIN A1C < 7.0 Result Component 5.4( 12:00 AM CDT) No Alisa Jaramillo documented as of this encounter Visit Diagnoses Diagnosis Arthralgia of lower leg, unspecified laterality- Primary documented in this encounter Care Teams Billing Associate Relationship Specialty Start Date End Date Etienne Florez MD Orthopedic Surgery 12/09/14 documented as of this encounter
--- OUTSIDE RECORDS SUMMARY | 2024-05-26 12:44 | XMS_ITS | Encounter Summary ---
Author Organization [facility] Health Address [address] [place] [address] Care Team Providers Care Airplane Refueler Name Role Phone Etienne Florez MD Unavailable Reason for Visit * Reason Onset Date Comments Question 12/31/2016 Encounter Details Date Type Department Care Team (Late st Contact Info) Description 12/31/2016 Telephone [facility] [facility] [address] [facility] [address] [place] [address] [place] [address] [facility] [address] [place] [address] Question Social History Tobacco Use [...] encounter Miscellaneous Notes * Telephone Encounter - Lashonda Barros MA - 01/02/2017 10:37 AM CDT Left detailed message on daughter's vm with Dr. Ross' response. * Telephone Encounter - Nelson Ross MD - 01/01/2017 1:08 PM CDT I spoke to Dr Camops and can wait. He did not feel she had a stroke * Telephone Encounter - Lashonda Barros MA - 12/31/2016 2:21 PM CDT Pt's daughter, Bekah, called stating pt went to the ER for what she thought was a stroke. Tests were run and pt was released today. Bekah says the family feels as if they do not know anything and hasmany questions. Pt is scheduled to see you in office on 01/13/17. Does she need to be seen sooner? documented in this encounter Plan of Treatment Not on file documented as of this encounter Goals Goal Patient Goal Type Associated Problems Recent Progress Patient-Stated? Author Blood Pressure < 140/90 Blood Pressure 127/52(2022 8:09 AM PICKER) No Alisa Jaramillo HEMOGLOBIN A1C < 7.0 Result Component 5.4( 12:00 AM CDT) No Alisa Jaramillo documented as of this encounter Visit Diagnoses Not on filedocumented in this encounter Care Teams Airplane Refueler Relationship Specialty Start Date End Date Etienne Florez MD Orthopedic Surgery 12/09/14 documented as of this encounter
--- OUTSIDE RECORDS SUMMARY | 2024-05-26 12:44 | XMS_ITS | Encounter Summary ---
Author Organization [facility] Address [address] [place] [address] Care Team Providers Care Senior Budget Analyst Name Role Phone Etienne Florez MD Unavailable Reason for Visit * Reason Comments Establish Care left knee pain and s welling * Evaluate & Treat (Routine) - Closed Specialty Diagnoses / Procedures Referred By Contac t Referred To Contact Orthopedic Surgery / Orthopedics Diagnoses Arthralgia of lower leg, unspecified laterality Jarrell Garrison MD [address] [place] [address] [place] [address] [place] [address] Referral ID Status Reason Start Date Expiration Date V isits Requested Visits Authorized [id number] Closed Specialty Services Required 04/18/2017 10/15/2017 1 1 Encounter Details Date Type Department Care Team (Late st Contact Info) Description 04/25/2017 9:30 AM CUT PLUG PACKER Office Visit [facility] Orthopedics [address] [place] [address], [address] [place] [id number] [place] [address] [facility] [address] [place] [address] Left knee pain, unspecified chronicity (Primary Dx); Arthralgia of lower leg, unspecified laterality Social [...] as of this encounter Progress Notes * Ben Renner - 04/25/2017 9:54 AM CST left knee pain and swelling PLUG PACKER documented in this encounter H&P Notes * Etienne Florez MD - 04/26/2017 12:58 AM CST DATE OF SERVICE: 04/25/2017 HISTORY: This is a 76-year-old lady who has history of left knee pain posteriorly without any injury. She was driving in the car and when she got to her house, she had pain and could not get out of the car. She had two of her family members help her out of the car. She went to the [facility] Emergency Room. X-rays were done of the knee, and no fractures were found. The patient was placed in a knee immobilizer splint which she has used off and on. She says that as of yesterday, the pain is gone away. 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 The patient does ambulate, but she does admit to frequent falling. The patient has a previous history of TIAs and seizures. FAMILY HISTORY: Reviewed and initialed. SOCIAL HISTORY: Reviewed and initialed. MEDICATIONS: Reviewed and initialed. ALLERGIES: Reviewed and initialed. REVIEW OF SYSTEMS: Reviewed and initialed. The patient also has lymphedema and wears compression stockings bilaterally. PHYSICAL EXAMINATION: 76-year-old female, alert and oriented. Height 5 feet 5 inches, weight 200 pounds, BMI of 34. Left knee exam shows currently no specific pain. Palpation about the knee shows no tenderness. She had previously had tenderness in the posterior aspect of the knee. Palpation over the posterior aspect does not show specific mass or swelling. The patient is wearing compression stockings bilaterally. There is active flexion and extension of the left knee without reported pain. Knee is stable to anterior and posterior stress and valgus and varus stress. Christian is negative. IMAGING: X-rays reviewed on computer disc from [facility] shows on 3 views of the left knee, satisfactory joint space. There is osteopenia noted throughout the bone structure visualized. Minimal degenerative change. IMPRESSION: Left knee pain which is now resolving. Question of a possible leaking Naidu's cyst. The patient has already been evaluated at [facility] ER and had a negative D-dimer and that was low index of suspicion for DVT. The patient is already on Plavix and uses compression stockings. PLAN: At this point, she is having minimal if any pain. She can ambulate as tolerated. I discussed the possibility of getting a venous ultrasound and evaluation of the popiteal space. She may have had a leaking popliteal cyst. At this point, there is no need for any active intervention. I discussed changing to a hinged knee brace. At this point, she is out of her knee immobilizer and does not wish to have a hinged knee brace. She will call if she changes her mind. Followup is p.Johanny Koenig/MedQ #: [id number] PLUG PACKER documented in this encounter Plan of Treatment Not on file documented as of this encounter Goals Goal Patient Goal Type Associated Problems Recent Progress Patient-Stated? Author Blood Pressure < 140/90 Blood Pressure 127/52(2022 8:09 AM CUT PLUG PACKER) No Alisa Jaramillo HEMOGLOBIN A1C < 7.0 Result Component 5.4( 12:00 AM CDT) No Alisa Jaramillo documented as of this encounter Visit Diagnoses Diagnosis Left knee pain, unspecified chronicity- Primary Arthralgia of lower leg, unspecified laterality documented in this encounter Care Teams Senior Budget Analyst Relationship Specialty Start Date End Date Etienne Florez MD Orthopedic Surgery 12/09/14 documented as of this encounter
--- OUTSIDE RECORDS SUMMARY | 2024-05-26 12:44 | XMS_ITS | Encounter Summary ---
Author Organization [facility] Address [address] [place] [address] Care Team Providers Care Air Chipper Name Role Phone Etienne Florez MD Unavailable [phone] Reason for Visit * Reason Onset Date Comments Question 07/14/2017 Encounter Details Date Type Department Care Team (Late st Contact Info) Description 07/14/2017 Telephone [facility] - Family Medicine [address] [place] [address] [address] [place] [address] Jarrell Garirson MD [address] [facility] [address] [address] Question Social History Tobacco Use [...] * Telephone Encounter - Eva Rutherford - 07/16/2017 8:50 AM CST The patient is scheduled for 07/22/17 at 3:00pm. NG AND DISPENSING SUPERVISOR * Telephone Encounter - Shayy Abraham - 07/14/2017 1:05 PM CST Sent to charly to schedule NG AND DISPENSING SUPERVISOR * Telephone Encounter - Jarrell Garrison MD - 07/14/2017 12:47 PM CST Okay to schedule at next available Thank you NG AND DISPENSING SUPERVISOR * Telephone Encounter - Milton Naidu - 07/14/2017 11:01 AM CST Pt called stating that she has severe constipation. Pt states that she has had this for years. Her stool is hard and big. Pt uses a stool softener every morning. Pt is requesting to be seen by PCP mars as possible. NG AND DISPENSING SUPERVISOR documented in this encounter Plan of Treatment Not on file documented as of this encounter Goals Goal Patient Goal Type Associated Problems Recent Progress Patient-Stated? Author Blood Pressure < 140/90 Blood Pressure 127/52(2022 8:09 AM MIXING AND DISPENSING SUPERVISOR) No Alisa Jaramillo HEMOGLOBIN A1C < 7.0 Result Component 5.4( 12:00 AM CDT) No Alisa Jaramillo documented as of this encounter Visit Diagnoses Not on filedocumented in this encounter Care Teams Air Chipper Relationship Specialty Start Date End Date Etienne Florez MD Orthopedic Surgery 12/09/14 documented as of this encounter
--- OUTSIDE RECORDS SUMMARY | 2024-05-26 12:44 | XMS_ITS | Encounter Summary ---
Author Organization [facility] Address [address] [place] [address] Care Team Providers Care Body Joiner Name Role Phone Etienne Florez MD Unavailable [phone] Reason for Visit * Reason Comments Diabetes Hypertension Encounter Details Date Type Department Care Team (Late st Contact Info) Description 12/10/2016 10:00 AM CDT Office Visit [facility] - Family Medicine [address] [place] [address] [address] [place] [address] Jarrell Garrison MD [address] [place] [address] [phone] Long-term insulin use (HCC) (Primary Dx); Weakness; Essential hypertension; Sleep apnea, unspecified type; HSP (hereditary spastic paraplegia) (HCC); Primary osteoarthritis of right knee; Type 2 diabetes mellitus without complication, with long-term current use of insulin (HCC); Hyperlipidemia, unspecified hyperlipidemia type Social History Tobacco Use Types Packs/Day [...] Sign Reading Time Taken Comments Blood Pressure 164/84 12/10/2016 10:24 AM CDT Pulse 82 12/10/2016 10:24 AM CDT Temperature 36.4 ??C (97.6 ??F) 12/10/2016 10:24 AM C DT Respiratory Rate 14 12/10/2016 10:24 AM CDT Oxygen Saturation - - Inhaled Oxygen Concentration - - Weight 96.3 kg (212 lb 6.4 oz) 12/10/2016 10:24 AM CDT Height 165.1 cm (5' 5 ) 12/10/2016 10:24 AM CDT Body Mass Index 35.35 12/10/2016 10:24 AM CDT documented in this encounter Patient Instructions * Patient Instructions* Alisa Jaramillo - 12/10/2016 10:24 AM CDT Caring for Your High Blood Pressure [...] Where can I go for more information? [employer] National Center: http://www.americanheart.org 1. In the top header, click ???Conditions?? . 2. In the top header, click ???high blood pressure.?? 3. For a printable blood pressure tracker, scroll toward the bottom of the page to Related Tools, and click ???HBP Trackers.?? 5-078-HEX-USA-1 or ( ) National Heart, Lung and Blood [place]: http://www.nhlbi.nih.gov/health/infoctr/index.htm Caring for Your Diabetes Routine Testing [...] documented in this encounter Progress Notes * Jarrell Garrison MD - 12/30/2016 12:37 AM CDT Perla Leon 76 y.o. 12/10/2016. CHIEF COMPLAINT/HPI: Follow up visit today Diabetes controlled Htn needs better control Hld statin Hsp seeing neurology Major cpap ? Non smoker Previous Tia . Vision okay PERSONAL HISTORY: Alcohol: none Caffeine: 0 cups caffeine per day Tobacco: unknown tobacco use Salt: salt added to cooking Occupation: Exercise: rarely REVIEW OF SYSTEMS Skin: pigmentation Eyes: negative ENT: negative Cardiovascular: none Pulmonary: negative GI: negative : None QUILT STUFFER: none Back & Joint: arthritis Neuro: negative Last Exam: Primary Care Physician: Jarrell Garrison MD PHYSICAL EXAMINATION General: Wt Readings from Last 3 Encounters: 12/10/16 96.3 kg (212 lb 6.4 oz) 07/17/16 93.4 kg (206 lb) 07/15/16 93.9 kg (207 lb) Temp Readings from Last 3 Encounters: 12/29/16 98.1 ??F 12/10/16 97.6 ??F (Oral) 07/17/16 97.7 ??F BP Readings from Last 3 Encounters: 12/29/16 157/60 12/10/16 164/84 07/17/16 130/70 Pulse Readings from Last 3 Encounters: 12/29/16 62 12/10/16 82 07/17/16 76 Body mass index is 35.35 kg/(m^2). General appearance - alert, well appearing, [...] - soft, nontender, nondistended, no masses or organomegaly. Extremeties - peripheral pulses normal, no pedal [...] 132* 88 CALCIUM 8.8 - 9.7 10.3* Immunization History Administered Date(s) Administered ??? PNEUMOCOCCAL PPSV23 12/04/2010 ??? TETANUS 09/05/1995, 11/21/2009 ??? Zoster Vaccine 08/24/2007 ASSESSMENT: Encounter Diagnoses Name Primary? Long-term insulin use Yes ??? Weakness ??? Essential hypertension ??? Sleep apnea, unspecified type ??? HSP (hereditary spastic paraplegia) ??? Primary osteoarthritis of right knee ??? Type 2 diabetes mellitus without complication, with long-term current use of insulin ??? Hyperlipidemia, unspecified hyperlipidemia type PLAN: Medication reviewed Immunization discussed Neurology follow up Follow ambulatory BP readings and adjust meds Foot exam next visit Jarrell Garrison MD documented in this encounter Plan of Treatment Not on file documented as of this encounter Goals Goal Patient Goal Type Associated Problems Recent Progress Patient-Stated? Author Blood Pressure < 140/90 Blood Pressure 127/52(2022 8:09 AM COREMAKING MACHINE OPERATOR) No Alisa Jaramillo HEMOGLOBIN A1C < 7.0 Result Component 5.4( 12:00 AM CDT) No Alisa Jaramillo documented as of this encounter Visit Diagnoses Diagnosis Long-term insulin use (HCC)- Primary Encounter for long-term (current) use of insulin Weakness Other malaise and fatigue Essential hypertension Sleep apnea, unspecified type HSP (hereditary spastic paraplegia) (HCC) Hereditary spastic paraplegia Primary osteoarthritis of right knee Primary localized osteoarthrosis, lower leg Type 2 diabetes mellitus without complication, with long-term current use of insulin (HCC) Hyperlipidemia, unspecified hyperlipidemia type documented in this encounter Care Teams Body Joiner Relationship Specialty Start Date End Date Etienne Florez MD Orthopedic Surgery 12/09/14 documented as of this encounter
--- OUTSIDE RECORDS SUMMARY | 2024-05-26 12:44 | XMS_ITS | Encounter Summary ---
Author Organization [facility] Address [address] [place] [address] Care Team Providers Care Extrusion Die Corrector Name Role Phone Etienne Florez MD Unavailable [phone] Reason for Visit * Reason Comments Follow-up Encounter Details Date Type Department Care Team (Late st Contact Info) Description 04/14/2017 9:40 AM EMC STORAGE ARCHITECT Office Visit [facility] Neurosciences [address] [address] [place] [address] [facility] [address] [place] [address] HSP (hereditary spastic paraplegia) (HCC) (Primary Dx); Small vessel disease (HCC) Social History Tobacco Use Types Packs/Day [...] Sign Reading Time Taken Comments Blood Pressure 160/82 04/14/2017 9:58 AM EMC STORAGE ARCHITECT Pulse 92 04/14/2017 9:58 AM EMC STORAGE ARCHITECT Temperature - - Respiratory Rate 14 04/14/2017 9:58 AM EMC STORAGE ARCHITECT Oxygen Saturation 95% 04/14/2017 9:58 AM EMC STORAGE ARCHITECT Inhaled Oxygen Concentration - - Weight 93 kg (205 lb) 04/14/2017 9:58 AM EMC STORAGE ARCHITECT Height 165.1 cm (5' 5 ) 04/14/2017 9:58 AM EMC STORAGE ARCHITECT Body Mass Index 34.11 04/14/2017 9:58 AM EMC STORAGE ARCHITECT documented in this encounter Functional Status Functional [...] Instructions * Patient Instructions* Eva Sinha - 04/14/2017 10:32 AM EMC STORAGE ARCHITECT Call physician if symptoms worsen or with any questions. Take Medications as prescribed. For descriptions of a variety of neurological conditions please visit: [email or web address] STORAGE ARCHITECT documented in this encounter Progress Notes * Nelson Ross MD - 04/14/2017 10:07 AM CST CC: Left leg IH: Has been seeing Dr Muller. Had an episode this past Friday of pain behind left knee and then left leg felt numb without weakness. Numbness persisted several hrs. Still feels numb but feels it is getting better. More numb than pain but still some pain. Pain is focal behind knee. Has had PAF in the past but does not feel when has. Outpatient Prescriptions Marked as Taking for the 04/14/17 encounter (Office Visit) with Nelson Ross MD Medication Sig Dispense Refill ??? metOLazone (ZAROXOLYN) 2.5 MG tablet Take 2.5 mg by mouth once daily ??? amitriptyline (ELAVIL) 25 MG tablet Take 1 tablet by mouth at bedtime 90 tablet 3 ??? Polyethyl Glycol-Propyl Glycol (SYSTANE [...] by mouth once daily Take 4 tabs withbreakfast ??? glimepiride (AMARYL) 1 MG tablet Take [...] TBCR Take by mouth once daily. ROS: No left arm or face involvement. CTA some electrical products sales engineer in December. MRI Reviewed and SVID COREY mild Ca++ AV and MV Exam: BP 160/82 Pulse 92 Resp 14 Ht 1.651 m (5' 5 ) Wt 93 kg (205 lb) SpO2 95% BMI 34.11 kg/m2 Gait drags legs a little and uses walker TULALIP No facial weakness EOMs OK FFOV Referred murmur Power OK except bilat ATs 4/4 Reflexes brisk at knees and absent at ankles Marked edema of the legs, Left greater with negative Evelin's ASSESSMENT: HSP Hx of PAF and strokes SVID Knee pain Fall risk PLAN: Same meds No anticoagulation - fall risk Increase Elavil to 50 mg - her request Does not want re image No memory meds See Ortho if knee continues to hurt 3 month follow up Warnings about stroke Over 25 minutes were spent with the patient face to face. Over fifty percent of this time was spentcounseling and coordination of care. All questions were answered to the patients satisfaction. Discussed differential diagnosis, pathophysiology, evaluation and treatment. STORAGE ARCHITECT documented in this encounter Plan of Treatment Not on file documented as of this encounter Goals Goal Patient Goal Type Associated Problems Recent Progress Patient-Stated? Author Blood Pressure < 140/90 Blood Pressure 127/52(2022 8:09 AM EMC STORAGE ARCHITECT) No Alisa Jaramillo HEMOGLOBIN A1C < 7.0 Result Component 5.4( 12:00 AM CDT) No Alisa Jaramillo documented as of this encounter Visit Diagnoses Diagnosis HSP (hereditary spastic paraplegia) (HCC)- Primary Hereditary spastic paraplegia Small vessel disease (HCC) Peripheral vascular disease, unspecified documented in this encounter Care Teams Extrusion Die Corrector Relationship Specialty Start Date End Date Etienne Florez MD Orthopedic Surgery 12/09/14 documented as of this encounter
--- OUTSIDE RECORDS SUMMARY | 2024-05-26 12:44 | XMS_ITS | Encounter Summary ---
Author Organization [facility] Address [address] [place] [place] [address] Care Team Providers Care Sales Representative Gas Service Name Role Phone Etienne Florez MD Unavailable [phone] Reason for Visit * Reason Comments Follow-up Encounter Details Date Type Department Care Team (Late st Contact Info) Description 01/13/2017 10:00 AM CDT Office Visit [facility] Neurosciences [address] [address] [place] [address] [facility] [address] [place] [address] HSP (hereditary spastic paraplegia) (HCC) (Primary Dx); Edema, unspecified type; Acute cystitis without hematuria; Urinary tract infection without hematuria, site unspecified Social History Tobacco Use Types Packs/Day Years [...] Sign Reading Time Taken Comments Blood Pressure 144/62 01/13/2017 10:04 AM CDT Pulse 64 01/13/2017 10:04 AM CDT Temperature - - Respiratory Rate 14 01/13/2017 10:04 AM CDT Oxygen Saturation 95% 01/13/2017 10:04 AM CDT Inhaled Oxygen Concentration - - Weight 94.8 kg (209 lb) 01/13/2017 10:04 AM CDT Height 165.1 cm (5' 5 ) 01/13/2017 10:04 AM CDT Body Mass Index 34.78 01/13/2017 10:04 AM CDT documented in this encounter Functional [...] Instructions * Patient Instructions* Eva Sinha - 01/13/2017 10:57 AM CDT Call physician if symptoms worsen or with any questions. Take Medications as prescribed. For descriptions of a variety of neurological conditions please visit: [email or web address]. documented in this encounter Progress Notes * Eva Sinha - 01/28/2017 1:33 PM CDT I informed the patient of the results. * Nelson Ross MD - 01/28/2017 9:21 AM CDT Let know urine clean * Nelson Ross MD - 01/13/2017 10:40 AM CDT CC:HSP IH: Recent hospitalization for stroke like event. [place] to be UTI and exacerbation of HSP. Now back to baseline. Legs feel heavy but has edema. Seen by Dr Campos in hospital. Feels memory bad Exam: BP 144/62 Pulse 64 Resp 14 Ht 1.651 m (5' 5 ) Wt 94.8 kg (209 lb) SpO2 95% BMI 34.78 kg/m2 Edema spastic gait Increased leg reflexes Alert and oriented No drift Sensory distal loss MRI SVID CTA atherosclerosis - no internal narrowing and no vasculitis UA > 100, 000 pseudomonas ASSESSMENT: HSP Peripheral edema Pseudomonas UTI PLAN: Cipro Diuretic Then Razadyne Over 40 minutes were spent with the patient face to face. Over fifty percent of this time was spentcounseling and coordination of care. All questions were answered to the patients satisfaction. Discussed differential diagnosis, pathophysiology, evaluation and treatment. documented in this encounter Plan of Treatment Not on file documented as of this encounter Goals Goal Patient Goal Type Associated Problems Recent Progress Patient-Stated? Author Blood Pressure < 140/90 Blood Pressure 127/52(2022 8:09 AM HAND FLATWORK FINISHER) No Alisa Jaramillo HEMOGLOBIN A1C < 7.0 Result Component 5.4( 12:00 AM CDT) No Alisa Jaramillo documented as of this encounter Procedures Procedure Name Priority Date/Time Associated Diagnosis Comments URINALYSIS REFLEX MICROSCOPIC REFLEX CULTURE Routine 01/27/2017 1:55 PM CDT Urinary tract infection without hematuria, site unspecified documented in this encounter Results * (ABNORMAL) URINALYSIS ROUTINE W/REFLEX TO CULTURE (01/27/2017 1:55 PM CDT) Color UA YELLOW YELLOW [facility] Appearance CLEAR CLEAR [facility] Specific [place] UA 1.021 1.001 - 1.035 QUEST pH [...] SEEN /LPF QUEST Comment: Test Performed at: [employer] [facility] [address] [place], [place] ??[address] ELIE HAMLIN DO,MPH Urine URINE SPECIMEN OBTAINED BY CLEAN CATCH PROCEDURE / Unknown 01/27/2017 1:55 PM CDT 01/27/2017 1:55 PM CDT Nelson Ross MD LAB - URINALYSIS OR DERABLES Performing Organization Address City/State/[facility] Co de Phone Number [facility] [address] [place] [address] documented in this encounter Visit Diagnoses Diagnosis 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
--- OUTSIDE RECORDS SUMMARY | 2024-05-26 12:44 | XMS_ITS | Encounter Summary ---
Author Organization [facility] Address [address] [place] [address] Care Team Providers Care Ethylbenzene Converter Operator Name Role Phone Etienne Florez MD Unavailable Enrique Gonzalez MD Unavailable [phone] Theresa Camargo MD Primary Care Provider Nelson Ross MD Unavailable Laz Valencia MD Unavailable Russell Moran MD Unavailable Yuliya Ibarra MD Unavailable [phone] Phuong Callejas DPM Unavailable [phone] Sy Barrientos MD Unavailable [phone] Russell Moran MD Unavailable Rico Gasca MD Unavailable Elle Landaverde MD Unavailable [phone] Kirk Truong MD Unavailable [phone] Shira Love DO Unavailable [phone] Theresa Camargo MD Unavailable Brooke Haynes COMMERCIAL PILOT-TECHNICAL SERVICES SPECIALIST Unavailable [phone] Theresa Camargo MD Unavailable [phone] Brooke Haynes COMMERCIAL PILOT-TECHNICAL SERVICES SPECIALIST Unavailable [phone] Theresa Camargo MD Unavailable Reason for Visit * Reason Onset Date Comments MEDICATION REFILL 07/14/2017 Encounter Details Date Type Department Care Team (Late st Contact Info) Description 07/14/2017 Refill [facility] - Family Medicine [address] [place] [address] [address] [place] [address] Jarrell Garrison MD [address] [facility] [address] [place] [address] MEDICATION REFILL Social History Tobacco [...] Telephone Encounter - Laisha Osman - 07/14/2017 11:19 AM CST Perla Leon is in need [...] new allergies since last office visit? No t Was the pharmacy verified? Yes If this is a controlled substance was the Last 4 of SSN verified? NOT APPLICABLE (If unable to verify last 4 of SSN transfer to the clinic for further review) Patient wanted to have a 30 day script sent to [facility] ECTOR BALANCE TRUING documented in this encounter Plan of Treatment Not on file documented as of this encounter Goals Goal Patient Goal Type Associated Problems Recent Progress Patient-Stated? Author Blood Pressure < 140/90 Blood Pressure 127/52(2022 8:09 AM INSPECTOR BALANCE TRUING) No Alisa Jaramillo HEMOGLOBIN A1C < 7.0 Result Component 5.4( 12:00 AM CDT) No Alisa Jaramillo documented as of this encounter Visit Diagnoses Not on filedocumented in this encounter Care Teams Ethylbenzene Converter Operator Relationship Specialty [place] [address] [address] [place], [place] [id number] PCP - General Internal Medicine 03/31/18 05/30/22 [place] [address] [address] [place] [address] PCP - Attributed-MSSP 04/18/19 06/18/19 Brooke Haynes APRN-TECHNICAL SERVICES SPECIALIST [address] [place] [address] PCP - Attributed-MSSP 06/19/19 07/17/19 [place] [address] [place] [address] PCP - Attributed-MSSP 07/18/19 10/17/19 Brooke Haynes APRN-TECHNICAL SERVICES SPECIALIST [address] [place] [address] PCP - Attributed-MSSP 10/18/19 11/16/19 [place] [address] [place] [address] PCP - Attributed-MSSP 11/17/19 02/16/20 Etienne Florez MD Orthopedic Surgery 12/09/14 [place] [address] [place] [phone] Oncology 09/15/17 [place] [address] [place] [phone] Neurology 06/26/18 [place] [address] [facility] [address] [place] [phone] Cardiovascular Disease 06/26/18 [place] [address] [address] Pulmonary Disease 06/26/18 Yuliya Ibarra MD [address] [place] [phone] Endocrinology 06/26/18 Phuong Callejas DPM [address] [place], [place] [phone] Podiatry 06/26/18 Sy Barrientos MD [facility] [place] [address] Ophthalmology 06/26/18 [place] [address] [address] Pulmonary Disease 06/26/18 Rico Gasca MD [address] [place] [address] Urology 06/26/18 Elle Landaverde MD [address] [place] [address] Vascular Surgery 06/26/18 Kirk Truong MD [address] [facility] [place] [address] Gastroenterology 06/26/18 [place] [address] [place] [address] [place] [address] General Surgery 06/26/18 documented as of this encounter
--- OUTSIDE RECORDS SUMMARY | 2024-05-26 12:44 | XMS_ITS | Encounter Summary ---
Author Organization [facility] Address [address] [place] [address] Care Team Providers Care Brass Pourer Name Role Phone Etienne Florez MD Unavailable [phone] Reason for Visit * Reason Onset Date Comments Opened In Error 07/14/2017 Encounter Details Date Type Department Care Team (Late st Contact Info) Description 07/14/2017 Telephone [facility] - Family Medicine [address] [place] [address] [address] [place] [address] Jarrell Garrison MD [facility] [address] [address] Opened In Error Social History [...] < 140/90 Blood Pressure 127/52(2022 8:09 AM PSYCHOLOGICAL EXAMINER) No Alisa Jaramillo HEMOGLOBIN A1C < 7.0 Result Component 5.4( 12:00 AM CDT) No Alisa Jaramillo documented as of this encounter Visit Diagnoses Not on filedocumented in this encounter Care Teams Brass Pourer Relationship Specialty Start Date End Date Etienne Florez MD Orthopedic Surgery 12/09/14 documented as of this encounter
--- OUTSIDE RECORDS SUMMARY | 2024-05-26 12:44 | XMS_ITS | Encounter Summary ---
Author Organization [facility] Address [address] [place] [address] Care Team Providers Care Door And Arrival Attendant Name Role Phone Etienne Florez MD Unavailable [phone] Enrique Gonzalez MD Unavailable [phone] Reason for Visit * Reason Onset Date Comments Scheduling 07/14/2017 Encounter Details Date Type Department Care Team (Late st Contact Info) Description 07/14/2017 Telephone [facility] - Family Medicine [address] [place] [address] [address] [place] [address] Jarrell Garrison MD [address] [facility] [address] [place] [address] Scheduling Social History Tobacco Use Types Packs/Day [...] Telephone Encounter - Laisha Osman - 07/14/2017 11:10 AM CST Who is calling? self If other than self is caller listed on the HIPAA? No If caller is anyone other than listed above, where are they calling from? na What is the reason for call? Patient is requesting to be seen as soon as possible, if possible on Friday for issues with severe constipation. Expected Response from the Clinic? ( ex. Call back, etc..) call back LA OPERATOR documented in this encounter Plan of Treatment Not on file documented as of this encounter Goals Goal Patient Goal Type Associated Problems Recent Progress Patient-Stated? Author Blood Pressure < 140/90 Blood Pressure 127/52(2022 8:09 AM CUPOLA OPERATOR) No Alisa Jaramillo HEMOGLOBIN A1C < 7.0 Result Component 5.4( 12:00 AM CDT) No Alisa Jaramillo documented as of this encounter Visit Diagnoses Not on filedocumented in this encounter Care Teams Door And Arrival Attendant Relationship Specialty Start Date End Date Etienne Florez MD Orthopedic Surgery 12/09/14 [place] [address] [address] Oncology 09/15/17 documented as of this encounter
--- OUTSIDE RECORDS SUMMARY | 2024-05-26 12:44 | XMS_ITS | Encounter Summary ---
Author Organization [facility] Address [address] [place] [address] Care Team Providers Care Hiv Cts Specialist Name Role Phone Etienne Florez MD Unavailable [phone] Reason for Visit * Reason Onset Date Comments Patient Requested Call 07/15/2017 Encounter Details Date Type Department Care Team (Late st Contact Info) Description 07/15/2017 Telephone [facility] - Family Medicine [address] [place] [address] [address] [place] [address] Jarrell Garrison MD [facility] [address] [address] Patient Requested Call Social History Tobacco Use [...] Telephone Encounter - Eva Rutherford - 07/16/2017 9:07 AM CST Patient is scheduled for 07/22/17 at 3:00pm. MAINTAINER SECTION * Telephone Encounter - Jarrell Garrison MD - 07/15/2017 1:02 PM CST Please call patient and follow-up Okay with refills MAINTAINER SECTION * Telephone Encounter - Sahra Avalos - 07/15/2017 12:38 PM CST Who is calling? Self If other than self is caller listed on the HIPAA? Yes If caller is anyone other than listed above, where are they calling from? N/A What is the reason for call? Patient states she called [facility] and was told they would need toget an approval from Dr. Garrison so that she can receive the 30 day script (potassium chloride (KLOR-CON 10) 10 MEQ tablet). Patient also states she was scheduled an appointment on 07/31 and she thought she was suppose to get a call back to get an earlier appointment. Expected Response from the Clinic? ( ex. Call back, etc..) Call back MAINTAINER SECTION documented in this encounter Plan of Treatment Not on file documented as of this encounter Goals Goal Patient Goal Type Associated Problems Recent Progress Patient-Stated? Author Blood Pressure < 140/90 Blood Pressure 127/52(2022 8:09 AM LINE MAINTAINER SECTION) No Alisa Jaramillo HEMOGLOBIN A1C < 7.0 Result Component 5.4( 1 12:00 AM CDT) No Alisa Jaramillo documented as of this encounter Visit Diagnoses Not on filedocumented in this encounter Care Teams Hiv Cts Specialist Relationship Specialty Start Date End Date Etienne Florez MD Orthopedic Surgery 12/09/14 documented as of this encounter
--- OUTSIDE RECORDS SUMMARY | 2024-05-26 12:44 | XMS_ITS | Encounter Summary ---
Author Organization [facility] Address [address] [place] [address] Care Team Providers Care Square Cutter Name Role Phone Etienne Florez MD Unavailable [phone] Reason for Visit * Reason Onset Date Comments Refill Request 07/23/2017 Encounter Details Date Type Department Care Team (Late st Contact Info) Description 07/23/2017 Telephone [facility] - Family Medicine [address] [place] [address] [address] [place] [address] Jarrell Garrison MD [facility] [address] [address] Refill Request Social History Tobacco Use [...] Telephone Encounter - Jarrell Garrison MD - 07/24/2017 9:48 AM CST signed AL WRITER * Telephone Encounter - Jarrell Garrison MD - 07/23/2017 3:44 PM CST Please call her and see what needs to be done Thank you AL WRITER * Telephone Encounter - Eva Evans - 07/23/2017 3:16 PM CST She was in yesterday. She is having issues getting her Potassium refilled. She would like a call back regarding the potassium. AL WRITER documented in this encounter Plan of Treatment Not on file documented as of this encounter Goals Goal Patient Goal Type Associated Problems Recent Progress Patient-Stated? Author Blood Pressure < 140/90 Blood Pressure 127/52(2022 8:09 AM MANUAL WRITER) No Alisa Jaramillo HEMOGLOBIN A1C < 7.0 Result Component 5.4( 12:00 AM CDT) No Alisa Jaramillo documented as of this encounter Visit Diagnoses Not on filedocumented in this encounter Care Teams Square Cutter Relationship Specialty Start Date End Date Etienne Florez MD Orthopedic Surgery 12/09/14 documented as of this encounter
--- OUTSIDE RECORDS SUMMARY | 2024-05-26 12:45 | XMS_ITS | Encounter Summary ---
Author Organization [facility] Address [address] [facility] [place] [address] Care Team Providers Care Paraplanner Name Role Phone Etienne Florez MD Unavailable [phone] Reason for Visit * Reason Onset Date Comments MEDICATION REFILL 08/01/2016 Encounter Details Date Type Department Care Team (Late st Contact Info) Description 08/01/2016 Refill [facility] - Family Medicine [address] [place] [address] [address] [place] [address] Jarrell Garrison MD [facility] [address] [address] MEDICATION REFILL Social History [...] encounter Miscellaneous Notes * Telephone Encounter - Tash Stanford - 08/01/2016 9:35 AM CDT Perla Leon Allergies Allergen Reactions ??? Advair Diskus YEAS INFECTION ??? Aricept [Donepezil] ??? Diltiazem Swelling ??? Metformin Other reaction(s): Other (See Comments) unknown Requested Prescriptions Pending Prescriptions Disp Refills ??? rosuvastatin (CRESTOR) 10 MG tablet Sig: Take 1 Tab by mouth at bedtime Last Refill: historical med Last OV: 07.17.16 Next OV:11.12.16 Cholesterol Medication Refill Request Recent Labs Component Name 06/13/16 1245 ALT 30 AST 18 No results for input(s): CHOL, TRIG, HDL, LDLCALC in the last 94735 hours. documented in this encounter Plan of Treatment Not on file documented as of this encounter Visit Diagnoses Not on filedocumented in this encounter Care Teams Paraplanner Relationship Specialty Start Date End Date Etienne Florez MD Orthopedic Surgery 12/09/14 documented as of this encounter
--- OUTSIDE RECORDS SUMMARY | 2024-05-26 12:45 | XMS_ITS | Encounter Summary ---
Author Organization [facility] Address [address] [place] [address] Care Team Providers Care Logistics Operations Manager Name Role Phone Etienne Florez MD Unavailable [phone] Reason for Visit * Reason Onset Date Comments MEDICATION REFILL 10/21/2016 Encounter Details Date Type Department Care Team (Late st Contact Info) Description 10/21/2016 Refill [facility] - Family Medicine [address] [place] [address] [address] [place] [address] Jarrell Garrison MD [facility]9 [facility] [address] [address] MEDICATION REFILL Social History Tobacco [...] * Telephone Encounter - Karla Horton - 10/21/2016 9:22 AM CDT Perlamainor Leon Allergies Allergen Reactions ??? Advair Diskus YEAS INFECTION ??? Aricept [Donepezil] ??? Diltiazem Swelling ??? Metformin Other reaction(s): Other (See Comments) unknown Requested Prescriptions Pending Prescriptions Disp Refills ??? esomeprazole (NEXIUM) 40 MG capsule Sig: Take 1 Cap by mouth once daily ??? empagliflozin (JARDIANCE) 10 MG tablet Sig: Take 1 Tab by mouth once daily Last Refill: AMB BOTH Last OV: 07/17/16 Next OV: 11/12/16 documented in this encounter Plan of Treatment Not on file documented as of this encounter Visit Diagnoses Not on filedocumented in this encounter Care Teams Logistics Operations Manager Relationship Specialty Start Date End Date Etienne Florez MD Orthopedic Surgery 12/09/14 documented as of this encounter
--- OUTSIDE RECORDS SUMMARY | 2024-05-26 12:45 | XMS_ITS | Encounter Summary ---
Author Organization [facility] Address [address] [place] [address] Care Team Providers Care Milk Handler Name Role Phone Etienne Florez MD Unavailable [phone] Reason for Visit * Reason Onset Date Comments Billing Question 09/10/2016 Encounter Details Date Type Department Care Team (Late st Contact Info) Description 09/10/2016 Telephone [facility] - Family Medicine [address] [place] [address] [address] [place] [address] Jarrell Garrison MD [facility] [address] [address] Billing Question Social History Tobacco Use Types Packs/Day [...] encounter Miscellaneous Notes * Telephone Encounter - Kia Hicks - 09/10/2016 1:00 PM CDT Patient called with c/o lab work was coding incorrectly and she and her will be charged. The insurance company will not pay for the labs because the coding states Routine. There needs to be acoding with a diagnosis. Labs from 06/14/2016. The patient's responsibility is $312.85. Please contact Mrs. Leon at [phone]. documented in this encounter Plan of Treatment Not on file documented as of this encounter Goals Goal Patient Goal Type Associated Problems Recent Progress Patient-Stated? Author Blood Pressure < 140/90 Blood Pressure 127/52(2022 8:09 AM INSTANT POTATO PROCESSOR) No Alisa Jaramillo HEMOGLOBIN A1C < 7.0 Result Component 5.4( 12:00 AM CDT) No lAisa Jaramillo documented as of this encounter Visit Diagnoses Not on filedocumented in this encounter Care Teams Milk Handler Relationship Specialty Start Date End Date Etienne Florez MD Orthopedic Surgery 12/09/14 documented as of this encounter
--- OUTSIDE RECORDS SUMMARY | 2024-05-26 12:45 | XMS_ITS | Encounter Summary ---
Author Organization [facility] Address [address] [place] [address] Care Team Providers Care Collar Baster Jumpbasting Name Role Phone Etienne Florez MD Unavailable [phone] Reason for Visit * Reason Comments Follow-up Encounter Details Date Type Department Care Team (Late st Contact Info) Description 07/17/2016 10:00 AM POT FISHER Office Visit [facility] - Family Medicine [address] [place] [address] [address] [place] [address] Jarrell Garrison MD [address] [place] [address] [phone] Hypovitaminosis D (Primary Dx); Long-term insulin use (HCC); Uncontrolled type 2 diabetes mellitus with complication, with long-term current use of insulin; Essential hypertension; Hyperlipidemia, unspecified hyperlipidemia type; HSP (hereditary spastic paraplegia) (HCC); Obesity, unspecified obesity severity, unspecified obesity type; Sleep apnea, unspecified type Social History Tobacco [...] Sign Reading Time Taken Comments Blood Pressure 130/70 07/17/2016 10:23 AM POT FISHER Pulse 76 07/17/2016 10:23 AM POT FISHER Temperature 36.5 ??C (97.7 ??F) 07/17/2016 10:[address] Respiratory Rate 16 07/17/2016 10:23 AM POT FISHER Oxygen Saturation 95% 07/17/2016 10:23 AM POT FISHER Inhaled Oxygen Concentration - - Weight 93.4 kg (206 lb) 07/17/2016 10:23 AM POT FISHER Height 165.1 cm (5' 5 ) 07/17/2016 10:23 AM POT FISHER Body Mass Index 34.28 07/17/2016 10:23 AM POT FISHER documented in this encounter Progress Notes * Jarrell Garrison MD - 07/22/2016 9:57 AM CST Perla Leon 75 y.o. 07/17/2016. CHIEF COMPLAINT/HPI: Perla is here for a follow-up visit. Recently seen in ED for abnormal D Dimer. CT Ok. episodic chest pain resolved. diabetes Stable seeing Neurology for gait disorder hypertension controlled. Fall risk. PERSONAL HISTORY: Alcohol: none Caffeine: 0 cups caffeine per day Tobacco: unknown tobacco use Salt: salt added to cooking Occupation: Exercise: rarely REVIEW OF SYSTEMS Skin: pigmentation Eyes: negative ENT: negative Cardiovascular: none Pulmonary: negative GI: negative : negative PR SPECIALIST: none Back & Joint: arthritis Neuro: weakness. Primary Care Physician: Jarrell Garrison MD PHYSICAL EXAMINATION General: Wt Readings from Last 3 Encounters: 07/17/16 93.4 kg (206 lb) 07/15/16 93.9 kg (207 lb) 06/13/16 93.9 kg (207 lb) Temp Readings from Last 3 Encounters: 07/17/16 97.7 ??F 02/12/12 97.4 ??F BP Readings from Last 3 Encounters: 07/17/16 130/70 07/15/16 164/72 06/13/16 110/76 Pulse Readings from Last 3 Encounters: 07/17/16 76 07/15/16 84 06/13/16 82 Body mass index is 34.28 kg/(m^2). General appearance - NAD Skin - normal coloration and turgor, no [...] or movement disorder noted Back exam - Impaired ROM Musculoskeletal - Le weakness. Most Recent CBC Component Results Lab Results Component Value Date WBC 8.0 06/13/2016 RBC 4.84 06/13/2016 MCV 89.0 06/13/2016 MCH 28.7 06/13/2016 RDW 13.9 06/13/2016 GRANPCT 61.0 06/13/2016 MONOCYTPCT 12.3 06/13/2016 EOSINPCT 2.9 06/13/2016 GRANABS 4.85 06/13/2016 LYMPHABS 1.81 06/13/2016 MONOCYTABS 0.98 06/13/2016 BASOABS 0.05 06/13/2016 Recent Labs Component Name 06/13/16 1245 SODIUM 144 POTASSIUM 4.1 CHLORIDE 108* CO2 27 BUN 18 CREATININE 0.81 GLUCOSE 88 CALCIUM 10.3* Immunization History Administered Date(s) Administered ??? PNEUMOCOCCAL PPSV23 12/04/2010 ??? TETANUS 09/05/1995, 11/21/2009 ??? Zoster Vaccine 08/24/2007 ASSESSMENT: Encounter Diagnoses Name Primary? Hypovitaminosis D Yes ??? Long-term insulin use ??? Uncontrolled type 2 diabetes mellitus with complication, with long-term current use of insulin ??? Essential hypertension ??? Hyperlipidemia, unspecified hyperlipidemia type ??? HSP (hereditary spastic paraplegia) ??? Obesity, unspecified obesity severity, unspecified obesity type ??? Sleep apnea, unspecified type PLAN: Orders Placed This Encounter ??? vitamin D, ergocalciferol, (DRISDOL) 54628 UNITS capsule Sig: Take 1 Cap by mouth every 7 days Dispense: 12 Cap Refill: 0 medication reviewed vitamin-D supplementation follow up with Cardiology and neurology Jarrell Garrison MD FISHER documented in this encounter Plan of Treatment Not on file documented as of this encounter Visit Diagnoses Diagnosis Hypovitaminosis D- Primary Unspecified vitamin D deficiency Long-term insulin use (HCC) Encounter for long-term (current) use of insulin Uncontrolled type 2 diabetes mellitus with complication, with long-term current use of insulin Essential hypertension Hyperlipidemia, unspecified hyperlipidemia type 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
--- OUTSIDE RECORDS SUMMARY | 2024-05-26 12:45 | XMS_ITS | Encounter Summary ---
Author Organization [facility] Address [address] [facility] [place] [address] Care Team Providers Care Welt Rougher Name Role Phone Etienne Florez MD Unavailable [phone] Reason for Visit * Reason Comments Refill Request Encounter Details Date Type Department Care Team (Late st Contact Info) Description 04/01/2016 Refill [facility] Neurosciences [address] [facility] [address] [place] [address] [place] [address] [phone] Refill Request Social History Tobacco Use [...] * Telephone Encounter - Eva Sinha - 04/02/2016 8:03 AM CST Perla Leon Allergies Allergen Reactions ??? Advair Diskus YEAS INFECTION ??? Aricept [Donepezil] ??? Diltiazem Swelling ??? Metformin Other reaction(s): Other (See Comments) unknown Requested Prescriptions Pending Prescriptions Disp Refills ??? amitriptyline (ELAVIL) 25 MG tablet [Pharmacy Med Name: AMITRIPTYLINE TABS 25MG] 90 Tab 2 Sig: TAKE 1 TABLET AT BEDTIME LAST FILL: 12/28/2015 LAST OV: 11/27/2015 RVISOR PIGMENT MAKING documented in this encounter Plan of Treatment Not on file documented as of this encounter Visit Diagnoses Not on filedocumented in this encounter Care Teams Welt Rougher Relationship Specialty Start Date End Date Etienne Florez MD Orthopedic Surgery 12/09/14 documented as of this encounter
--- OUTSIDE RECORDS SUMMARY | 2024-05-26 12:45 | XMS_ITS | Encounter Summary ---
Author Organization [facility] Address [address] [place] [address] Care Team Providers Care Scenic Arts Supervisor Name Role Phone Etienne Florez MD Unavailable Reason for Visit * Reason Onset Date Comments Results 06/17/2016 Patient Requested Call 06/17/2016 Encounter Details Date Type Department Care Team (Late st Contact Info) Description 06/17/2016 Telephone [facility] - Family Medicine [address] [place] [address] [address] [place] [address] Jarrell Garrison MD [address] [facility] [address] [place] [address] Results; Patient Requested Call Social History Tobacco Use [...] Telephone Encounter - Jarrell Garrison MD - 06/18/2016 12:45 PM CST Called and spoke to patient SCHOOL CHEMISTRY TEACHER * Telephone Encounter - Ashlyn Burroughs - 06/18/2016 11:12 AM CST Patient returned Dr Garrison's call; she left a voice mail at 10:19AM 06/18/2016. Can be reached backat home phone on file. SCHOOL CHEMISTRY TEACHER * Telephone Encounter - Jarrell Garrison MD - 06/18/2016 9:39 AM CST I called and left a voicemail for patient SCHOOL CHEMISTRY TEACHER * Telephone Encounter - Alley Paul - 06/18/2016 8:04 AM CST Please advise results and recommendations. SCHOOL CHEMISTRY TEACHER * Telephone Encounter - Jarrell Garrison MD - 06/17/2016 4:39 PM CST ok SCHOOL CHEMISTRY TEACHER * Telephone Encounter - Alley Paul - 06/17/2016 4:20 PM CST Records on your desk for review. SCHOOL CHEMISTRY TEACHER * Telephone Encounter - Alley Paul - 06/17/2016 3:08 PM CST Simon Sanchez to fax over records from ER visit. SCHOOL CHEMISTRY TEACHER * Telephone Encounter - Pricila Singh - 06/17/2016 11:42 AM CST Pt called to advise that she was seen at [facility] on 06/14/2016. Update Thank you SCHOOL CHEMISTRY TEACHER * Telephone Encounter - Jarrell Garrison MD - 06/17/2016 11:34 AM CST I have not received any results please advise them to fax us for review SCHOOL CHEMISTRY TEACHER * Telephone Encounter - Alley Paul - 06/17/2016 11:15 AM CST Did the ER at [facility] call you? SCHOOL CHEMISTRY TEACHER * Telephone Encounter - Juan C Bustillos - 06/17/2016 10:17 AM CST Pt is requesting a phone call from Alley regarding her results. She got lab work and CT done on 06/15/2016 at [facility]. She wants to be sure Dr. Garrison gets the results. SCHOOL CHEMISTRY TEACHER documented in this encounter Plan of Treatment Not on file documented as of this encounter Visit Diagnoses Not on filedocumented in this encounter Care Teams Scenic Arts Supervisor Relationship Specialty Start Date End Date Etienne Florez MD Orthopedic Surgery 12/09/14 documented as of this encounter
--- OUTSIDE RECORDS SUMMARY | 2024-05-26 12:45 | XMS_ITS | Encounter Summary ---
Author Organization [facility] Address [address] [facility] [place] [address] Care Team Providers Care Driving Instructor Name Role Phone Etienne Florez MD Unavailable [phone] Reason for Visit * Reason Comments Follow-up Encounter Details Date Type Department Care Team (Late st Contact Info) Description 11/27/2015 10:20 AM CDT Office Visit [facility] Neurosciences [address] [facility] [address] [place] [address] [place] [address] [phone] HSP (hereditary spastic paraplegia) (HCC) (Primary [...] Sign Reading Time Taken Comments Blood Pressure 138/70 11/27/2015 10:27 AM CDT Pulse 80 11/27/2015 10:27 AM CDT Temperature - - Respiratory Rate 14 11/27/2015 10:2 7 AM CDT Oxygen Saturation - - Inhaled Oxygen Concentration - - Weight 91.5 kg (201 lb 12.8 oz) 016 10:27 AM CDT Height 165.1 cm (5' 5 ) 11/27/2015 10:2 7 AM CDT Body Mass Index 33.58 11/27/2015 10:27 AM CDT documented in this encounter Patient Instructions * Patient Instructions* Eva Sinha - 11/27/2015 10:49 AM CDT Call physician if symptoms worsen or with any questions. Take Medications as prescribed. For descriptions of a variety of neurological conditions please visit: [email or web address] documented in this encounter Progress Notes * Nelson Ross MD - 11/27/2015 10:32 AM CDT CC: HSP IH: Was in [place] and had Afib. Was hospitalized and was started only on Plavix - ? Fall risk as reason. Was in Afib brief both times. Was symptomatic. HSP is stable. Uses a walker. Has lymphedema Outpatient Prescriptions Marked as Taking for the 11/27/15 encounter (Office Visit) with Nelson Ross MD Medication Sig Dispense Refill ??? empagliflozin (JARDIANCE) 10 MG tablet Take 10 mg by mouth once daily ??? furosemide (LASIX) 40 MG tablet Take 40 mg by mouth once daily ??? insulin detemir (LEVEMIR) vial Inject 10 Units subcutaneously at bedtime ??? amitriptyline (ELAVIL) 25 MG tablet Take 1 Tab by mouth at bedtime 90 Tab 3 ??? sitaGLIPtin (JANUVIA) 50 MG tablet [...] tab with lunch, 2.5 with dinner. ??? valsartan (DIOVAN) 80 MG tablet Take 1 Tab by mouth once daily ??? polyethyl glycol-propyl glycol (SYSTANE ULTRA) 0.4-0.3 % ophth solution as needed. ??? albuterol HFA (PROAIR HFA) 108 (90 BASE) MCG/ACT inhaler Take 2 Puffs by mouth every 4 hours asneeded. ??? esomeprazole (NEXIUM) 40 MG capsule Take 40 mg by mouth once daily. ??? clopidogrel (PLAVIX) 75 MG tablet Take 75 mg by mouth at bedtime. ??? rosuvastatin (CRESTOR) 10 MG tablet Take 10 mg by mouth at bedtime. ??? multivitamin with iron (ONE A DAY WITH IRON) tablet Take 1 Tab by mouth once daily. ??? Cyanocobalamin (B-12) 1000 MCG TBCR Take by mouth once daily. ROS: No stroke like events Exam: BP 138/70 mmHg Pulse 80 Resp 14 Wt 91.536 kg (201 lb 12.8 oz) BMI 33.58 kg/m2 Alert and oriented ? With referred bruits Gait with walker and spastic Sensory decreased distal Hips weak Reflexes brisk except AJs tr/tr ASSESSMENT: HSP stable Recent PAF and fall risk ? Hx of stroke PLAN: Plavix for now Add ASA See cardiology Discuss Afib with stroke risk Continue other meds Call 6 month follow up documented in this encounter Plan of Treatment Not on file documented as of this encounter Visit Diagnoses Diagnosis HSP (hereditary spastic paraplegia) (HCC)- Primary Hereditary spastic paraplegia documented in this encounter Care Teams Driving Instructor Relationship Specialty Start Date End Date Etienne Florez MD Orthopedic Surgery 12/09/14 documented as of this encounter
--- OUTSIDE RECORDS SUMMARY | 2024-05-26 12:45 | XMS_ITS | Encounter Summary ---
Author Organization [facility] Address [address] [place] [address] Care Team Providers Care Dancing Master Name Role Phone Etienne Florez MD Unavailable [phone] Reason for Visit * Reason Comments Follow-up Encounter Details Date Type Department Care Team (Late st Contact Info) Description 05/22/2015 11:00 AM FREIGHT BRAKE OPERATOR Office Visit [facility] Neurosciences [address] [facility] [address] [place] [address] [place] [address] [phone] HSP (hereditary spastic paraplegia) (HCC) (Primary Dx); MCI (mild cognitive impairment) Social History Tobacco [...] Sign Reading Time Taken Comments Blood Pressure 120/68 05/22/2015 11:25 AM FREIGHT BRAKE OPERATOR Pulse 72 05/22/2015 11:25 AM FREIGHT BRAKE OPERATOR Temperature - - Respiratory Rate 16 05/22/2015 11:25 AM FREIGHT BRAKE OPERATOR Oxygen Saturation - - Inhaled Oxygen Concentration - - Weight 90.7 kg (200 lb) 05/22/2015 11:25 AM FREIGHT BRAKE OPERATOR Height 165.1 cm (5' 5 ) 05/22/2015 11:25 AM FREIGHT BRAKE OPERATOR Body Mass Index 33.28 05/22/2015 11:25 AM FREIGHT BRAKE OPERATOR documented in this encounter Patient Instructions * Patient Instructions* Samina Wild MA - 05/22/2015 12:05 PM FREIGHT BRAKE OPERATOR Call physician if symptoms worsen or with any questions. Take Medications as prescribed. For descriptions of a variety of neurological conditions please visit: [email or web address] GHT BRAKE OPERATOR documented in this encounter Progress Notes * Nelson Ross MD - 05/22/2015 11:44 AM CST CC: HSP IH: Doing OK. About the same. Uses her walker. Knees buckle on occasion. DM is out of control. No new strokes. Memory is bad. Did not tolerate the Aricept. Does not want memory med. Outpatient Prescriptions Marked as Taking for the 05/22/15 encounter (Office Visit) with Nelson Ross MD Medication Sig Dispense Refill ??? insulin detemir (LEVEMIR) vial Inject 10 Units subcutaneously at bedtime ??? amitriptyline (ELAVIL) 25 MG tablet Take 1 Tab by mouth at bedtime 90 Tab 3 ??? sitaGLIPtin (JANUVIA) 50 MG tablet Take 100 mg by mouth once daily ??? latanoprost (XALATAN) 0.005 % ophthalmic solution 1 Drop at bedtime ??? naproxen (NAPROSYN) 500 MG tablet Take 500 mg by mouth once daily as needed for Pain ??? potassium chloride (KLOR-CON 10) 10 MEQ [...] by mouth every 4 hours asneeded. ??? triamterene-hydrochlorothiazide (DYAZIDE) 37.5-25 MG capsule Take 37.5 Caps by mouth 2 times daily. ??? esomeprazole (NEXIUM) 40 MG capsule Take [...] TBCR Take by mouth once daily. ROS: Sleeps OK. Falls asleep easily. Had a sleep study and no narcolepsy but excessive sleepiness. Feet are numb Exam: BP 120/68 mmHg Pulse 72 Resp 16 Wt 90.719 kg (200 lb) BMI 33.28 kg/m2 Alert and oriented No bruits EOMs OK Heberden's nodes Power adequate Reflexes brisk except AJs tr/tr Sensory OK at ankles ASSESSMENT: HSP DMPN DM EDS MCI Hx of strokes PLAN: Continue same meds (Stroke prevention) Does not want Namenda 6 month follow up GHT BRAKE OPERATOR documented in this encounter Plan of Treatment Not on file documented as of this encounter Visit Diagnoses Diagnosis HSP (hereditary spastic paraplegia) (HCC)- Primary Hereditary spastic paraplegia MCI (mild cognitive impairment) Mild cognitive impairment, so stated documented in this encounter Care Teams Dancing Master Relationship Specialty Start Date End Date Etienne Florez MD Orthopedic Surgery 12/09/14 documented as of this encounter
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
--- OUTSIDE RECORDS SUMMARY | 2024-05-26 12:45 | XMS_ITS | Encounter Summary ---
Author Organization [facility] Health Address [address] [place] [address] Care Team Providers Care Metal Furrer Name Role Phone Etienne Florez MD Unavailable [phone] Reason for Visit * Reason Comments Lower Extremity Problem HEAVY MOBILE EQUIPMENT REPAIRER/vickie knees kne e/xr will be taken Encounter Details Date Type Department Care Team (Latest Contact Info) Description 12/09/2014 9:30 AM CDT Office Visit [facility] [id number] [place] [address] [place] [id number] [address] Primary osteoarthritis of right knee (Primary Dx); Right knee pain Social History Tobacco Use Types Packs/Day Years Used Date Smoking Tobacco: Never Smokeless Tobacco: Never Alcohol Use Standard Drinks/Week Comments No 0 (1 standard drink = 0.6 oz pur e alcohol) Sex and Gender Information Value Date Recorded Sex Assigned at Not on file Gender Identity Not on file Sexual Orientation Not on file documented as of this encounter Progress Notes * Cheri Pinon MA - 12/09/2014 10:42 AM CDT Hinged knee brace applied * Rosa Maria Buckley MA - 12/09/2014 9:59 AM CDT Patient was seen in the office today for right knee documented in this encounter H&P Notes * Etienne Florez MD - 12/09/2014 10:08 PM CDT DATE OF SERVICE: 12/09/2014 HISTORY: 74-year-old lady who complains of pain primarily in the right knee to the ankle. Also she reports some weakness in both legs. The patient has a long history of neuropathy. She has a diagnosis of familial spastic paraplegia which she says her father had, and it started when she was about 38 and is apparently a progressive neurologic degeneration. She says she has numbness in both legs. She has a previous history of right knee problems with arthroscopic surgery in 1999 and 2003 apparently for meniscus problem for the first one and degenerative changes for the second. She is not currently taking anti-inflammatory medications. Visual analog pain scale indicates pain level anywhere from 3 to 10. PAST MEDICAL HISTORY: Sheet reviewed and initialed. PHYSICAL EXAMINATION: A 74-year-old female, alert and oriented. Height 5 feet 5 inches, weight 200 pounds. The right knee shows skin to be intact. She has diminished sensation in both lower extremities. There is no palpable effusion. Both knees are stable to anterior and posterior stress, and valgus and varus stress. Christian's testing negative bilaterally. X-RAYS: Both knees show the right knee to have moderate DJD with partial narrowing of the medial joint space. Left knee shows good joint space. IMPRESSION: Right knee degenerative joint disease and a history of familial spastic paraplegia with neuropathy. PLAN: She is placed in a hinged brace for the right knee. I discussed the possible Depo-Medrol injection in the right knee for the DJD, but at this point, she would prefer not to have that done. Follow up here is pmarissa Florez M.D. Electronically Signed 12/12/2014 10:46:21 RDR/MedQ #: [id number] documented in this encounter Procedure Notes * Kati Choe RT(R) - 12/09/2014 10:17 AM CDTAssociated Order(s): XR KNEE BILAT 3 VIEWS SEE PROGRESS NOTES FOR FINAL RESULT documented in this encounter Plan of Treatment Not on file documented as of this encounter Procedures Procedure Name Priority Date/Time Associated Diagnosis Comments XR KNEE BILAT 3VW Routine 12/09/2014 10: 17 AM CDT Right knee pain documented in this encounter Results * XR KNEE BILAT 3 VIEWS (12/09/2014 10:17 AM CDT) Anatomical Region Laterality Modality Lower Extremity Radiographic Mireya ging Narrative 12/09/2014 10:46 AM CDT RT Koko(R) ? 12/09/2014 10:46 AM SEE PROGRESS NOTES FOR FINAL RESULT Etienne Florez MD DIAGNOSTIC IMAGING O RDERABLES documented in this encounter Visit Diagnoses Diagnosis Primary osteoarthritis of right knee- Primary Primary localized osteoarthrosis, lower leg Right knee pain Pain in joint, lower leg documented in this encounter Care Teams Metal Furrer Relationship Specialty Start Date End Date Etienne Florez MD Orthopedic Surgery 12/09/14 documented as of this encounter
--- OUTSIDE RECORDS SUMMARY | 2024-05-26 12:45 | XMS_ITS | Encounter Summary ---
Author Organization [facility] Health Address [address] [facility] [place] [address] Care Team Providers Care Volumetric Weigher Name Role Phone Etienne Florez MD Unavailable Reason for Visit * Reason Comments Follow-up Encounter Details Date Type Department Care Team (Late st Contact Info) Description 07/15/2016 9:20 AM EAR PULL MACHINE OPERATOR Office Visit [facility] Neurosciences [address] [address] [place] [address] [facility] [address] [place] [address] HSP (hereditary spastic paraplegia) (HCC) [...] Sign Reading Time Taken Comments Blood Pressure 164/72 07/15/2016 9:39 AM EAR PULL MACHINE OPERATOR Pulse 84 07/15/2016 9:39 AM EAR PULL MACHINE OPERATOR Temperature - - Respiratory Rate 14 07/15/2016 9:39 AM EAR PULL MACHINE OPERATOR Oxygen Saturation 95% 07/15/2016 9:39 AM EAR PULL MACHINE OPERATOR Inhaled Oxygen Concentration - - Weight 93.9 kg (207 lb) 07/15/2016 9:39 AM EAR PULL MACHINE OPERATOR Height 165.1 cm (5' 5 ) 07/15/2016 9:39 AM EAR PULL MACHINE OPERATOR Body Mass Index 34.45 07/15/2016 9:39 AM EAR PULL MACHINE OPERATOR documented in this encounter Patient Instructions * Patient Instructions* Isela Cottrell - 07/15/2016 10:15 AM EAR PULL MACHINE OPERATOR Call physician if symptoms worsen or with any questions. Take Medications as prescribed. For descriptions of a variety of neurological conditions please visit: [email or web address] PULL MACHINE OPERATOR documented in this encounter Progress Notes * Nelson Ross MD - 07/15/2016 9:55 AM CST CC: HSP IH: Can no longer sleep in a bed. Sleeps in a lift chair. Has some burning in her legs and also some jerking. Bilateral independent but only once a week. Not related to sleep.Fell in November. States knees gave out. Bladder OK. DM is doing OK Outpatient Prescriptions Marked as Taking for the 07/15/16 encounter (Office Visit) with Nelson Ross MD Medication Sig Dispense Refill ??? verapamil SR [...] TBCR Take by mouth once daily. ROS: Thinks she has AFib once a week but brief. Sees Annie Exam: BP 164/72 Pulse 84 Resp 14 Ht 1.651 m (5' 5 ) Wt 93.9 kg (207 lb) SpO2 95% BMI 34.45 kg/m2 Gait with walker and spastic, more right Sensory distal loss Reflexes brisk Alert and oriented FFOV. EOMs OK Power OK ASSESSMENT: HSP Leg myoclonus DM PAF PLAN: Same meds No additional as only once a week 6 month follow up Offered PT PULL MACHINE OPERATOR documented in this encounter Plan of Treatment Not on file documented as of this encounter Visit Diagnoses Diagnosis HSP (hereditary spastic paraplegia) (HCC)- Primary Hereditary spastic paraplegia documented in this encounter Care Teams Volumetric Weigher Relationship Specialty Start Date End Date Etienne Florez MD Orthopedic Surgery 12/09/14 documented as of this encounter
--- OUTSIDE RECORDS SUMMARY | 2024-05-26 12:45 | XMS_ITS | Encounter Summary ---
Author Organization [facility] Health Address [address] [address] Care Team Providers Care Acls Specialist Name Role Phone Etienne Florez MD Unavailable [phone] Reason for Visit * Reason Onset Date Comments Establish Care 05/02/2016 Question 05/02/2016 Encounter Details Date Type Department Care Team (Late st Contact Info) Description 05/02/2016 Telephone [facility] Medical [facility] - Family Medicine [address] [place] [address] [address] [place] [address] Jarrell Garrison MD [address] [facility] [address] [address] Establish Care; Question Social History Tobacco Use Types Packs/Day [...] encounter Miscellaneous Notes * Telephone Encounter - Larissa Lockhart - 05/03/2016 1:54 PM CST Voicemail left for patient. Per - If pt's would like their appointments to establish care together, they will have johnnie rescheduled for a later day. Each appointment must be 30 minutes. They can be scheduled togetherwhenever there are 2 openings. NT APPLICATION SUPPORT SPECIALIST * Telephone Encounter - Alley Paul - 05/02/2016 3:16 PM CST Each appointment must be 30 minutes. They can be scheduled together whenever there are 2 openings. NT APPLICATION SUPPORT SPECIALIST * Telephone Encounter - Becca Velazquez - 05/02/2016 9:44 AM CST Pt is schedule to established care as a New Patient with Dr. Garrison on 06/13/16 , at 9:00 am , pt would like to know if her can come in at that time also with her to established care as well he is scheduled on the same day but at 1:30 pm ,pt states they live in [place] and wouldn't know what to do with the time in between there appointments. NT APPLICATION SUPPORT SPECIALIST documented in this encounter Plan of Treatment Not on file documented as of this encounter Visit Diagnoses Not on filedocumented in this encounter Care Teams Acls Specialist Relationship Specialty Start Date End Date Etienne Florez MD Orthopedic Surgery 12/09/14 documented as of this encounter
--- OUTSIDE RECORDS SUMMARY | 2024-05-26 12:45 | XMS_ITS | Encounter Summary ---
Author Organization [facility] Health Address [address] [place] [address] Care Team Providers Care Pet Caregiver Name Role Phone Etienne Florez MD Unavailable [phone] Reason for Visit * Reason Onset Date Comments MEDICATION REFILL 04/04/2015 Encounter Details Date Type Department Care Team (Late st Contact Info) Description 04/04/[address] [facility] Neurosciences [address] [facility] [address] [place] [address] [place] [phone] [address] MEDICATION REFILL Social History Tobacco Use [...] encounter Miscellaneous Notes * Telephone Encounter - Sosa Moss MA - 04/04/2015 1:48 PM CST Requested Prescriptions Pending Prescriptions Disp Refills ??? amitriptyline (ELAVIL) 25 MG tablet 90 Tab Sig: Take 1 Tab by mouth at bedtime Last Fill: 01/18/2014 Last OV: 11/17/2014 NING AND DEVELOPMENT SPECIALIST documented in this encounter Plan of Treatment Not on file documented as of this encounter Visit Diagnoses Not on filedocumented in this encounter Care Teams Pet Caregiver Relationship Specialty Start Date End Date Etienne Florez MD Orthopedic Surgery 12/09/14 documented as of this encounter
--- OUTSIDE RECORDS SUMMARY | 2024-05-26 12:45 | XMS_ITS | Encounter Summary ---
Author Organization [facility] Health Address [address] [facility] [place] [address] Care Team Providers Care Supervisor Metal Cans Name Role Phone Unavailable Primary Care Provider Unavailabl e Reason for Visit * Reason Comments Follow-up Encounter Details Date Type Department Care Team (Late st Contact Info) Description 03/02/2014 12:00 PM CDT Office Visit [facility] Neurosciences [address] [facility] [address] [place] [address] [place] [address] [address] HSP (hereditary spastic paraplegia) (HCC) (Primary Dx); Stroke (HCC); Back pain Social History Tobacco Use Types Packs/Day Years Used Date Smoking Tobacco: Never Alcohol Use Standard Drinks/Week Comments Not Asked 0 (1 standard drink = 0.6 oz pur e alcohol) Sex and Gender Information Value Date Recorded Sex Assigned at Not on file Gender Identity Not on file Sexual Orientation Not on file documented as of this encounter Last Filed Vital Signs Vital Sign Reading Time Taken Comments Blood Pressure 129/76 03/02/2014 1:05 PM CDT Pulse 73 03/02/2014 1:05 PM CDT Temperature - - Respiratory Rate 12 03/02/2014 1:05 PM CDT Oxygen Saturation - - Inhaled Oxygen Concentration - - Weight 91.6 kg (202 lb) 03/02/2014 1:05 PM CDT Height 165.1 cm (5' 5 ) 03/02/2014 1:05 PM CDT Body Mass Index 33.61 03/02/2014 1:05 PM CDT documented in this encounter Patient Instructions * Patient Instructions* Alice Crane - 03/02/2014 1:44 PM CDT Call physician if symptoms worsen or with any questions. Take Medications as prescribed. For descriptions of a variety of neurological conditions please visit: [email or web address] documented in this encounter Progress Notes * Nelson Ross MD - 03/02/2014 1:20 PM CDT CC: Follow up for spastic paraparesis IH: Doing OK. No significant worsening. Some ongoing weakness and trouble walking but doing OK. No stroke like events. Has ongoing urinary issues. Memory is stable. Legs are numb. DM for a couple years. Has not seen Dr for glaucoma in awhile. Back pain present but no longer in pain mgmt. Outpatient Prescriptions Marked as Taking for the 03/02/14 encounter (Office Visit) with Nelson Ross MD Medication Sig Dispense Refill ??? potassium chloride (KLOR-CON 10) 10 MEQ tablet Take 10 mEq by mouth once daily. Take 2 tabs with food ??? amitriptyline (ELAVIL) 25 MG tablet Take 1 Tab by mouth at bedtime. 90 Tab 5 ??? glimepiride (AMARYL) 1 MG tablet Take 1 Tab by mouth 2 times daily. ??? valsartan (DIOVAN) 80 MG tablet Take 1 Tab by mouth 2 times daily. ??? bimatoprost (LUMIGAN) 0.01 % ophth solution Instill 1 Drop into both eyes at bedtime. ??? polyethyl glycol-propyl glycol (SYSTANE ULTRA) 0.4-0.3 [...] TBCR Take by mouth once daily. No Facility-Administered Medications for the 03/02/14 encounter (Office Visit) with Nelson Ross MD. ROS: Sleeps OK with CPAP. Has fallen on occasion. Exam: BP 129/76 Pulse 73 Resp 12 Wt 91.627 kg (202 lb) BMI 33.61 kg/m2 Gait spastic looking with walker EOMs without nystagmus FFOV Soft right bruit but ? 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
--- OUTSIDE RECORDS SUMMARY | 2024-05-26 12:45 | XMS_ITS | Encounter Summary ---
Author Organization [facility] Health Address [address] [facility] [place] [address] Care Team Providers Care Geographical Historian Name Role Phone Etienne Florez MD Unavailable Reason for Visit * Reason Onset Date Comments Update 11/27/2015 Encounter Details Date Type Department Care Team (Late st Contact Info) Description 11/27/2015 Telephone [facility] [address] [facility] [address] [place] [address] [place] [address] [address] Update Social History Tobacco Use Types [...] encounter Miscellaneous Notes * Telephone Encounter - Miguel Wansantiago - 11/27/2015 4:01 PM CDT Perla Leon called states she spoke with Dr. Valencia and his will see and is scheduled for 12-11-15. documented in this encounter Plan of Treatment Not on file documented as of this encounter Visit Diagnoses Not on filedocumented in this encounter Care Teams Geographical Historian Relationship Specialty Start Date End Date Etienne Florez MD Orthopedic Surgery 12/09/14 documented as of this encounter
--- OUTSIDE RECORDS SUMMARY | 2024-05-26 12:45 | XMS_ITS | Encounter Summary ---
Author Organization [facility] Health Address [address] [facility] [place] [address] Care Team Providers Care Process Control Specialist Name Role Phone Etienne Florez MD Unavailable [phone] Reason for Visit * Reason Onset Date Comments Concerns 12/11/2015 Encounter Details Date Type Department Care Team (Late st Contact Info) Description 12/11/2015 Telephone [facility] Neuroscience [address] [facility] [address] [place] [address] [place] [phone] [address] Concerns Social History Tobacco Use Types [...] encounter Miscellaneous Notes * Telephone Encounter - Savage Miguelsantiago - 12/12/2015 11:50 AM CDT Received a call from the patient and informed her per Dr. Ross if it continues Dr. Ross would like to see her. Patient states that great she understands and just wanted to know what to do. * Telephone Encounter - Nathaly Mendosa MA - 12/12/2015 11:41 AM CDT Lvm for patient to return call. Per Dr. Ross If it continues I need see her . For her to call us and let us know if she has another instance where both her legs give out on her. * Telephone Encounter - Nelson Ross MD - 12/11/2015 2:54 PM CDT If it continues I need see her * Telephone Encounter - Nathaly Mendosa MA - 12/11/2015 1:49 PM CDT Called patient she stated she does not feel bad her face is just bruised up because she hit her head on the pavement when she fell. The only pain is in on her forehead but only slightly. She said no signs of infection that she is aware of. * Telephone Encounter - Nelson Ross MD - 12/11/2015 12:44 PM CDT How is she now? Any increase in pain anywhere? Any signs of infection (UTI etc) * Telephone Encounter - Nathaly Mendosa MA - 12/11/2015 9:17 AM CDT Patient called and stated she fell due to both her legs giving out at the same time upon standing on 12/08/15. Stated she is worried because of her legs giving out so suddenly. What do you recommend, Please Advise! documented in this encounter Plan of Treatment Not on file documented as of this encounter Visit Diagnoses Not on filedocumented in this encounter Care Teams Process Control Specialist Relationship Specialty Start Date End Date Etienne Florez MD Orthopedic Surgery 12/09/14 documented as of this encounter
--- OUTSIDE RECORDS SUMMARY | 2024-05-26 12:45 | XMS_ITS | Encounter Summary ---
Author Organization [facility] Health Address [address] [place] [address] Care Team Providers Care Division Field Inspector Name Role Phone Unavailable Primary Care Provider Unavailabl e Reason for Visit * Reason Comments Follow-up Encounter Details Date Type Department Care Team (Late st Contact Info) Description 11/17/2014 3:00 PM CDT Office Visit [facility] Neurosciences [address] [facility] [address] [place] [address] [place] [phone] [address] HSP (hereditary spastic paraplegia) (HCC) (Primary Dx); Peripheral neuropathy; MCI (mild cognitive impairment) Social History Tobacco [...] Sign Reading Time Taken Comments Blood Pressure 115/60 11/17/2014 3:22 PM CDT Pulse 68 11/17/2014 3:22 PM CDT Temperature - - Respiratory Rate 12 11/17/2014 3:22 PM CDT Oxygen Saturation - - Inhaled Oxygen Concentration - - Weight 90.7 kg (200 lb) 11/17/2014 3:22 PM CDT Height 165.1 cm (5' 5 ) 11/17/2014 3:22 PM CDT Body Mass Index 33.28 11/17/2014 3:22 PM CDT documented in this encounter Patient Instructions * Patient Instructions* Teagan James - 11/17/2014 3:53 PM CDT Call physician if symptoms worsen or with any questions. Take Medications as prescribed. For descriptions of a variety of neurological conditions please visit: [email or web address] documented in this encounter Progress Notes * Nelson Ross MD - 11/17/2014 3:38 PM CDT CC: HSP IH: Doing about the same but falling backward and loses balance more easily. Has had no stroke likeevents. No Syncope. Memory bad. Still with back pain. Took Aricept in past but diarrhea. Occasionally drop objects. DM not controlled. Outpatient Prescriptions Marked as Taking for the 11/17/14 encounter (Office Visit) with Nelson Ross MD Medication Sig Dispense Refill ??? sitaGLIPtin (JANUVIA) 50 MG tablet Take [...] Tab by mouth 2 times daily. ??? polyethyl glycol-propyl glycol (SYSTANE ULTRA) 0.4-0.3 [...] by mouth once daily. ROS: Sleeps OK. Uses CPAP Exam BP 115/60 mmHg Pulse 68 Resp 12 Wt 90.719 kg (200 lb) BMI 33.28 kg/m2 Gait spastic with assist Distal vibration loss Reflexes brisk Alert and oriented No drift FTN intact EOMs OK Bruit right referred Cardiac murmur ASSESSMENT: HSP MCI DMPN DM Back pain Hx of stroke PLAN: No Namenda yet Continue walker BS control Same meds 6 month follow up documented in this encounter Plan of Treatment Not on file documented as of this encounter Visit Diagnoses Diagnosis HSP (hereditary spastic paraplegia) ([facility])- Primary Hereditary spastic paraplegia Peripheral neuropathy Unspecified hereditary and idiopathic peripheral neuropathy MCI (mild cognitive impairment) Mild cognitive impairment, so stated documented in this encounter
--- OUTSIDE RECORDS SUMMARY | 2024-05-26 12:45 | XMS_ITS | Encounter Summary ---
Author Organization [facility] Health Address [address] [facility] [place] [address] Care Team Providers Care Jinriksha Driver Name Role Phone Etienne Folrez MD Unavailable [phone] Encounter Details Date Type Department Care Team (Late st Contact Info) Description 06/13/2016 1:19 PM FULL SERVICE SUPERVISOR - 06/13/2016 11:59 PM [facility] Hospital Encounter [facility] Health Imaging Services - Radiology [address] [place] [address] Jarrell Garrison MD [address] [place] [address] [address] [place] [id number] Discharge Disposition: Home or Self Care Social [...] on file documented as of this encounter Medications at [...] as needed. amitriptyline (ELAVIL) 25 MG tablet TAKE 1 TABLET AT BEDTIME 90 Tab 3 04/02/2016 04/02/2017 aspirin (ASPIRIN) 81 MG tablet Take 81 mg by mouth once daily 09/20/2020 clopidogrel (PLAVIX) 75 MG tablet Take 75 mg by mouth at bedtime. 12/04/2016 Cyanocobalamin 1000 MCG Take by mouth once daily. 05/21/2022 empagliflozin (JARDIANCE) 10 MG tablet Take 10 mg by mouth once daily 10/21/2016 esomeprazole (NEXIUM) 40 MG capsule Take 40 mg by mouth once daily. 10/21/2016 FLECAINIDE ACETATE PO Take 50 mg by mouth 2 times daily 09/14/2020 furosemide (LASIX) 40 MG tablet Take 40 mg by mouth once daily 12/04/2016 glimepiride (AMARYL) 1 MG tablet Take 1 Tab by mouth 3 times daily,before breakfast/lunch/bedtime 1.5 tab po with Breakfast, 2 tab with lunch, 2.5 with dinner. 04/13/20 insulin detemir (LEVEMIR) vial Inject 6 Units subcutaneously at bedtime 06/26/2018 latanoprost (XALATAN) 0.005 % ophthalmic solution Instill 1 drop into both eyes at bedtime 09/14/2020 polyethyl glycol-propyl glycol (SYSTANE ULTRA) 0.4-0.3 % ophth solution as needed. 12/28/2016 potassium chloride (KLOR-CON 10) 10 MEQ tablet Take 10 mEq by mouth once daily Take 4 tabs with breakfast 06/25/2017 rosuvastatin (CRESTOR) 10 MG tablet Take 10 mg by mouth at bedtime. 08/01/2016 triamterene-hydrochlo rothiazide (DYAZIDE) 37.5-25 MG capsule Take 37.5 Caps by mouth 2 times daily Reported on 07/17/2016 12/28/2016 valsartan (DIOVAN) 80 MG tablet Take 1 Tab by mouth once daily Reported on 07/17/2016 12/28/2016 verapamil SR 24hr (VERELAN) 240 MG capsule Take 240 mg by mouth once daily 11/23/2019 documented as of this encounter Progress Notes * Teagan Oakley MA - 06/13/2016 11:59 PM CST Lab results given via [employer]. SERVICE SUPERVISOR * Jarrell Garrison MD - 06/13/2016 2:14 PM CST No acute disease SERVICE SUPERVISOR documented in this encounter Plan of Treatment Not on file documented as of this encounter Procedures Procedure Name Priority Date/Time Associated Diagnosis Comments XR CHEST 2VW Routine 06/13/2016 1:51 PM FULL SERVICE SUPERVISOR Health maintenance examination documented in this encounter Results * XR CHEST PA AND LATERAL (06/13/2016 1:51 PM FULL SERVICE SUPERVISOR) Anatomical Region Laterality Modality Chest Radiographic Mireya ging 06/13/2016 2:02 PM FULL SERVICE SUPERVISOR Impressions 06/13/2016 2:03 PM FULL SERVICE SUPERVISOR No acute disease. Narrative 06/13/2016 2:03 PM FULL SERVICE SUPERVISOR Chest Two Views History: Encounter for general [...] documented in this encounter Visit Diagnoses Diagnosis Health maintenance examination Unspecified general medical examination documented in this encounter Care Teams Jinriksha Driver Relationship Specialty Start Date End Date Etienne Florez MD Orthopedic Surgery 12/09/14 documented as of this encounter
--- OUTSIDE RECORDS SUMMARY | 2024-05-26 12:46 | XMS_ITS ---
Author Organization [facility] Address [address] [facility] [place] [address] Care Team Providers Care Neonatal Intensive Care Nurse Name Role Phone Etienne Florez MD Unavailable [phone] Enrique Gonzalez MD Unavailable [phone] Nelson Ross MD Unavailable Laz Valencia MD Unavailable Russell Moran MD Unavailable Yuliya Ibarra MD Unavailable [phone] Phuong Callejas DPM Unavailable [phone] Sy Barrientos MD Unavailable Russell Moran MD Unavailable Rico Gasca MD Unavailable [phone] Elle Landaverde MD Unavailable Kirk Truong MD Unavailable [phone] Shira Love DO Unavailable [phone] Sara Schultz MD Unavailable [phone] Hussain Ray MD Unavailable [phone] Elizabeth Car MD Primary Care Provider + QMM & AWV - [facility] Status:Closed (Closed) Start date:06/17/2022 Enrollment reason:Identified using claims or encounter data End date:06/17/2022 Close reason:LTC Facility Overview Patient resides in LTC facility, [facility] Continued Care and Services Coordination
--- OUTSIDE RECORDS SUMMARY | 2024-05-26 12:46 | XMS_ITS | Encounter Summary ---
Author Organization [facility] Health Address [address] [facility] [address] [place] [address] Care Team Providers Care Gluing Machine Feeder Name Role Phone Unavailable Primary Care Provider Unavailabl e Reason for Visit * Reason Onset Date Comments MEDICATION REFILL 12/21/2012 Encounter Details Date Type Department Care Team (Late st Contact Info) Description 12/21/2012 Refill [facility] Neurosciences [address] [facility] [address] [place] [address] [place] [address] [address] MEDICATION REFILL Social History Tobacco [...] Miscellaneous Notes * Telephone Encounter - Alice Mancera - 12/21/2012 11:17 AM CDT Perla Leon Allergies Allergen Reactions ??? Advair Diskus YEAS INFECTION ??? Aricept (Donepezil) ??? Diltiazem Swelling Requested Prescriptions Pending Prescriptions Disp Refills ??? amitriptyline (ELAVIL) 25 MG tablet 90 Tab Sig: Take 1 Tab by mouth at bedtime. Last Refill: 09/20/2012 Last OV: 11/12/2012 documented in this encounter Plan of Treatment Not on file documented as of this encounter Visit Diagnoses Not on filedocumented in this encounter
--- OUTSIDE RECORDS SUMMARY | 2024-05-26 12:46 | XMS_ITS | Encounter Summary ---
Author Organization [facility] Health Address [address] [facility] [place] [address] Care Team Providers Care Tinsmith Helper Name Role Phone Unavailable Primary Care Provider Unavailabl e Reason for Visit * Reason Onset Date Comments Update 11/25/2012 Encounter Details Date Type Department Care Team (Late st Contact Info) Description 11/25/2012 Telephone [facility] Neuroscience [id number] [place] [address] [address] [place] [address] [place] [phone] [address] Update Social History Tobacco Use [...] encounter Miscellaneous Notes * Telephone Encounter - Riana Sinha - 11/27/2012 1:20 PM CDT I faxed over the information to [facility] for the scooter. I informed the patients daughter that this was done. * Telephone Encounter - Nelson Ross MD - 11/27/2012 10:36 AM CDT Please do * Telephone Encounter - Riana Sinha - 11/25/2012 1:26 PM CDT They are looking at getting a scooter. They stated that they would like to go ahead with this. Theystated that you would write a script for them. documented in this encounter Plan of Treatment Not on file documented as of this encounter Visit Diagnoses Not on filedocumented in this encounter
--- OUTSIDE RECORDS SUMMARY | 2024-05-26 12:46 | XMS_ITS | Encounter Summary ---
Author Organization [facility] Address [address] [place] [address] Care Team Providers Care Change Over Name Role Phone Unavailable Primary Care Provider Unavailabl e Reason for Visit * Reason Onset Date Comments MEDICATION REFILL 04/26/2011 Encounter Details Date Type Department Care Team (Late st Contact Info) Description 04/26/2011 Refill [facility] Neurosciences [address] [facility] [address] [place] [address] [place] [phone] [address] MEDICATION REFILL Social History Tobacco Use Types Packs/Day Years Used Date Smoking Tobacco: Never Assessed Sex and Gender Information Value Date Recorded Sex Assigned at Not on file Gender Identity Not on file Sexual Orientation Not on file documented as of this encounter Plan of Treatment Not on file documented as of this encounter Visit Diagnoses Not on filedocumented in this encounter
--- OUTSIDE RECORDS SUMMARY | 2024-05-26 12:46 | XMS_ITS | Encounter Summary ---
Author Organization [facility] Address [address] [facility] [place] [address] Care Team Providers Care Cardiograph Operator Name Role Phone Unavailable Primary Care Provider Unavailabl e Reason for Visit * Reason Comments Follow-up HSP Encounter Details Date Type Department Care Team (Late st Contact Info) Description 07/08/2011 9:20 AM PHYSICS DEPARTMENT CHAIR Office Visit [facility] Neurosciences [address] [facility] [address] [place] [address] [place] [phone] [phone] Familial spastic paraparesis (HCC) (Primary Dx) Social History Tobacco Use Types Packs/Day Years Used Date Smoking Tobacco: Never Assessed Sex and Gender Information Value Date Recorded Sex Assigned at Not on file Gender Identity Not on file Sexual Orientation Not on file documented as of this encounter Last Filed Vital Signs Vital Sign Reading Time Taken Comments Blood Pressure 140/80 07/08/2011 10:26 AM PHYSICS DEPARTMENT CHAIR Pulse 80 07/08/2011 10:26 AM PHYSICS DEPARTMENT CHAIR Temperature - - Respiratory Rate 12 07/08/2011 10:26 AM PHYSICS DEPARTMENT CHAIR Oxygen Saturation - - Inhaled Oxygen Concentration - - Weight - - Height - - Body Mass Index - - documented in this encounter Progress Notes * Nelson Ross MD - 07/08/2011 10:21 AM CST CC: Follow up IH; HSP follow up. Doing well. Balance off a bit. No ,ore stroke like events. No headaches. Some minor intermittent dizziness. Bladder was operated on and now doing well. Had a prolapse. Having back pain when stands too long. Has seen pain management. Current Outpatient Prescriptions Medication ??? amitriptyline (ELAVIL) 50 MG tablet ??? esomeprazole (NEXIUM) 40 MG capsule ??? valsartan (DIOVAN) 80 MG tablet ??? triamterene-hydrochlorothiazide (MAXZIDE) 75-50 MG tablet ??? potassium chloride (KLOR-CON 10) 10 MEQ tablet ??? clopidogrel (PLAVIX) 75 MG tablet ??? rosuvastatin (CRESTOR) 10 MG tablet ??? latanoprost (XALATAN) 0.005 % ophthalmic solution ??? ALBUTEROL IN ??? multivitamin with iron (ONE A DAY WITH IRON) tablet ??? Cyanocobalamin (B-12) 1000 MCG TBCR ??? vitamin D2 (ERGOCALCIFEROL) 65822 UNIT capsule Review of Systems - Negative except PI and tinnitus. Sleeps well. Uses CPAP. No significant muscle spasms. Exam: BP 140/80 Pulse 80 Resp 12 Well appearing and well nourished Cognitive: Alert and oriented X 3. Attention concentration, fund of knowledge and recent and remotememory are intact. Central language function is normal without evidence of aphasia. Cranial nerves: II - Intact visual acuity. FFOV to confrontation. III, IV, - EOMs intact without evidence of diplopia or nystagmus. V - Motor and Sensory components intact. VII - Facial movement intact. VIII - Hearing decreased IX, X - Palate midline and elevates normally. Intact gag. Uvula midline. XII - Tongue protrudes in the midline without atrophy or fasciculations. Neck: ROM normal. Carotids without bruits. Motor: increase in leg tone without weakness. Sensory: Intact to touch. Distal vibratory loss. Reflexes: Symmetric 1 at Biceps, Triceps, Brachioradialis, Knees and Ankles. Cerebellum: Intact FTN. Drift: Negative Gait: Slow and looks spastic. ASSESSMENT: Stable HSP, Stroke Ongoing back pain Dizziness PLAN: Continue same. 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
--- OUTSIDE RECORDS SUMMARY | 2024-05-26 12:46 | XMS_ITS | Encounter Summary ---
Author Organization [facility] Address [address] [place] [address] Care Team Providers Care Surgical Coordinator Name Role Phone Unavailable Primary Care Provider Unavailabl e Encounter Details Date Type Department Care Team (Latest Contact Info) Description 01/13/2012 10:43 AM CDT - 01/13/2012 11:59 PM T Hospital Encounter [facility] Vascular Services [address] [place] [id number] [place] [phone] [phone] Discharge Disposition: Home or Self Care Social [...] Take 1 Tab by mouth once daily. ALBUTEROL IN Inhale by mouth as directed. 08/10/2013 amitriptyline (ELAVIL) 25 MG tablet Take 1 Tab by mouth at bedtime. 90 Tab 3 01/06/2012 12/21/2012 clopidogrel (PLAVIX) 75 MG tablet Take 75 mg by mouth at bedtime. 12/04/2016 Cyanocobalamin 1000 MCG Take by mouth once daily. 05/21/2022 esomeprazole (NEXIUM) 40 MG capsule Take 40 mg by mouth once daily. 10/21/2016 latanoprost (XALATAN) 0.005 % ophthalmic solution Instill 1 Drop into both eyes at bedtime. 08/10/2013 potassium chloride (KLOR-CON 10) 10 MEQ tablet Take 2 Tabs by mouth daily with food. 08/10/2013 rosuvastatin (CRESTOR) 10 MG tablet Take 10 mg by mouth at bedtime. 08/01/2016 triamterene-hydrochlorot hiazide (DYAZIDE) 37.5-25 MG capsule Take 37.5 Caps by mouth 2 times daily Reported on 07/17/2016 12/28/2016 valsartan (DIOVAN) 80 MG tablet Take 80 mg by mouth once daily. 08/10/2013 vitamin D2 (ERGOCALCIFEROL) 07550 UNIT capsule Take 1 Cap by mouth every 7 days. 08/10/2013 documented as of this encounter Miscellaneous Notes * Miscellaneous Scans - Document, Scanned - 01/26/2012 5:22 PM CDT * Miscellaneous Scans - Document, Scanned - 01/24/2012 4:54 PM CDT documented in this encounter Plan of Treatment Not on file documented as of this encounter Procedures Procedure Name Priority Date/Time Associated Diagnosis Comments VAS CAROTID DUPLEX BILATERAL Routine 01/13/2012 11:35 AM CDT Stroke (HCC) documented in this encounter Results * CAROTID DUPLEX BILATERAL (01/13/2012 11:35 AM CDT) Anatomical Region Laterality Modality Ultrasound 01/13/2012 10:4 3 AM CDT Narrative Transcriptions Document, Scanned - 01/13/2012 3:33 PM CDT Nelson Ross MD VASCULAR [facility] ORDERA BLES documented in this encounter Visit Diagnoses Not on filedocumented in this encounter
--- OUTSIDE RECORDS SUMMARY | 2024-05-26 12:46 | XMS_ITS | Encounter Summary ---
Author Organization [facility] Address [address] [facility] [place] [address] Care Team Providers Care Master Rigger Name Role Phone Unavailable Primary Care Provider Unavailabl e Reason for Visit * Reason Comments Follow-up Encounter Details Date Type Department Care Team (Late st Contact Info) Description 08/10/2013 2:40 PM CDT Office Visit [facility] Neurosciences [address] [facility] [address] [place] [address] [place] [phone] [phone] HSP (hereditary spastic paraplegia) (HCC) [...] Sign Reading Time Taken Comments Blood Pressure 120/70 08/10/2013 2:58 PM CDT Pulse 80 08/10/2013 2:58 PM CDT Temperature - - Respiratory Rate 12 08/10/2013 2:58 PM CDT Oxygen Saturation - - Inhaled Oxygen Concentration - - Weight 89.6 kg (197 lb 9.6 oz) 08/10/2013 2:58 P M CDT Height 165.1 cm (5' 5 ) 08/10/2013 2:58 PM CDT Body Mass Index 32.88 08/10/2013 2:58 PM CDT documented in this encounter Patient Instructions * Patient Instructions* Riana Sinha - 08/10/2013 3:27 PM CDT Call physician if symptoms worsen or with any questions. Take Medications as prescribed. For descriptions of a variety of neurological conditions please visit: [email or web address] documented in this encounter Progress Notes * Thu Askew RN - 08/10/2013 3:45 PM CDT MOCA cognitive assessment completed. Total score 21/30. Thu Askew RN 08/10/2013 3:45 PM * Nelson Ross MD - 08/10/2013 3:07 PM CDT CC: HSP IH: No new stroke symptoms. Was in [place] with viral pneumonia? Feels balance is off. Having issues with glaucoma. Continues with back pain. Having some memory issues Outpatient Prescriptions Marked as Taking for the 08/10/13 encounter (Office Visit) with Nelson Ross MD Medication Sig Dispense Refill ??? glimepiride (AMARYL) 1 MG tablet Take 1 Tab by mouth 2 times daily. ??? valsartan (DIOVAN) 80 MG tablet Take 1 Tab by mouth 2 times daily. ??? bimatoprost (LUMIGAN) 0.01 % ophth solution Instill 1 Drop into both eyes at bedtime. ??? polyethyl glycol-propyl glycol (SYSTANE ULTRA) 0.4-0.3 % ophth solution as needed. ??? polyethylene glycol 400 0.4% + propylene glycol 0.3% (SYSTANE) 0.4-0.3 % opthalmic gel AT BEDTIME PRN. ??? amitriptyline (ELAVIL) 25 MG tablet Take 1 Tab by mouth at bedtime. 90 Tab 5 ??? albuterol HFA (PROAIR HFA) 108 (90 [...] by mouth once daily. ROS: Sleeps OK. Bladder incontinent Exam: BP 120/70 Pulse 80 Resp 12 Wt 89.631 kg (197 lb 9.6 oz) BMI 32.88 kg/m2 Alert and oriented Power 5/5 EOMs OK. FFOV. 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
--- OUTSIDE RECORDS SUMMARY | 2024-05-26 12:46 | XMS_ITS | Encounter Summary ---
Author Organization [facility] Address [address] [facility] [place] [address] Care Team Providers Care Body Worker Name Role Phone Unavailable Primary Care Provider Unavailabl e Reason for Visit * Reason Onset Date Comments Results 01/22/2012 Encounter Details Date Type Department Care Team (Late st Contact Info) Description 01/22/2012 Telephone [facility] Neurosciences [address] [facility] [address] [place] [address] [place] [phone] [phone] Results Social History Tobacco Use Types Packs/Day Years Used Date Smoking Tobacco: Never Assessed Sex and Gender Information Value Date Recorded Sex Assigned at Not on file Gender Identity Not on file Sexual Orientation Not on file documented as of this encounter Miscellaneous Notes * Telephone Encounter - Alice Mancera - 01/27/2012 9:10 AM CDT Pt aware of results. * Telephone Encounter - Nelson Ross MD - 01/23/2012 3:06 PM CDT No new strokes and carotids are fine * Telephone Encounter - Alice Mancera - 01/22/2012 3:16 PM CDT Pt called requesting 01/13/2012 MRI Brain results. Please advise. documented in this encounter Plan of Treatment Not on file documented as of this encounter Visit Diagnoses Not on filedocumented in this encounter
--- OUTSIDE RECORDS SUMMARY | 2024-05-26 12:46 | XMS_ITS ---
Author Organization [facility] Address [address] [facility] [place] [address] Care Team Providers Care Typesetting Supervisor Name Role Phone Etienne Florez MD Unavailable [phone] Enrique Gonzalez MD Unavailable Nelson Ross MD Unavailable [phone] Laz Valencia MD Unavailable Russell Moran MD Unavailable [phone] Yuliya Ibarra MD Unavailable [phone] Phuong Callejas DPM Unavailable Sy Barrientos MD Unavailable [phone] Russell Moran MD Unavailable Rico Gasca MD Unavailable Elle Landaverde MD Unavailable [phone] Kirk Truong MD Unavailable [phone] Shira Love DO Unavailable [phone] Sara Schultz MD Unavailable [phone] Hussain Ray MD Unavailable [phone] Elizabeth Car MD Primary Care Provider + Acute DC - [facility] Status:Closed (Closed) Start date:05/31/2022 Enrollment reason:Identified using claims or encounter data End date:05/31/2022 Close reason:LTC Facility Continued Care and Services Coordination
--- OUTSIDE RECORDS SUMMARY | 2024-05-26 12:46 | XMS_ITS ---
Author Organization [facility] Address [address] [facility] [place] [address] Care Team Providers Care Metal Fabricating Shop Helper Name Role Phone Etienne Florez MD Unavailable [phone] Enrique Gonzalez MD Unavailable [phone] Nelson Ross MD Unavailable Laz Valencia MD Unavailable Russell Moran MD Unavailable [phone] Yuliya Ibarra MD Unavailable [phone] Phuong Callejas DPM Unavailable [phone] Sy Barrientos MD Unavailable Russell Moran MD Unavailable Rico Gasca MD Unavailable Elle Landaverde MD Unavailable Kirk Truong MD Unavailable Shira Love DO Unavailable [phone] Sara Schultz MD Unavailable Hussain Ray MD Unavailable [phone] Elizabeth Car MD Primary Care Provider + Total Care - [facility] Status:Closed (Closed) Start date:08/15/2022 Enrollment reason:Identified as high-risk End date:08/15/2022 Close reason:LTC Facility Continued Care and Services Coordination
--- OUTSIDE RECORDS SUMMARY | 2024-05-26 12:46 | XMS_ITS | Encounter Summary ---
Author Organization [facility] Address [address] [facility] [place] [address] Care Team Providers Care Electric Motor Mechanic Name Role Phone Unavailable Primary Care Provider Unavailabl e Reason for Visit * Reason Comments Follow-up Encounter Details Date Type Department Care Team (Late st Contact Info) Description 11/12/2012 3:40 PM CDT Office Visit [facility] Neurosciences [address] [facility] [address] [place] [address] [place] [phone] [phone] HSP (hereditary spastic paraplegia) (HCC) [...] Sign Reading Time Taken Comments Blood Pressure 128/74 11/12/2012 3:44 PM CDT Pulse 91 11/12/2012 3:44 PM CDT Temperature - - Respiratory Rate 12 11/12/2012 3:44 PM CDT Oxygen Saturation - - Inhaled Oxygen Concentration - - Weight 90.4 kg (199 lb 6.4 oz) 11/12/2012 3:44 P M CDT Height 166 cm (5' 5.35 ) 11/12/2012 3:44 PM CDT Body Mass Index 32.82 11/12/2012 3:44 PM CDT documented in this encounter Patient Instructions * Patient Instructions* Gaurav Wildance - 11/12/2012 4:06 PM CDT Call physician if symptoms worsen or with any questions. Take Medications as prescribed. For descriptions of a variety of neurological conditions please visit: [email or web address] documented in this encounter Progress Notes * Nelson Ross MD - 11/12/2012 4:00 PM CDT CC: Follow up for HSP IH: Doing about the same. Walks with a walker. Falls occasionally.No worsening. Bladder about the same. Vaginal surgery helped. Back is stable. Wants to avoid injections. No new stroke events. Outpatient Prescriptions Marked as Taking for the 11/12/12 encounter (Office Visit) with Nelson Ross MD Medication Sig Dispense Refill ??? metFORMIN CR 24hr modified (GLUMETZA) 1000 MG (MOD) tablet Take 0.5 Tabs by mouth once daily. ??? budesonide (PULMICORT) 0.25 MG/2ML nebulizer suspension once daily as needed. ??? albuterol HFA (PROAIR HFA) 108 (90 BASE) MCG/ACT inhaler Take 2 Puffs by mouth every 4 hours asneeded. ??? amitriptyline (ELAVIL) 25 MG tablet Take 1 Tab by mouth at bedtime. 90 Tab 3 ??? triamterene-hydrochlorothiazide (DYAZIDE) 37.5-25 MG capsule Take 37.5 Caps by mouth 2 times daily. ??? esomeprazole (NEXIUM) 40 MG capsule Take 40 mg by mouth once daily. ??? valsartan (DIOVAN) 80 MG tablet Take 80 mg by mouth once daily. ??? potassium chloride (KLOR-CON 10) 10 MEQ tablet Take 10 mEq by mouth daily with food. TAKE 2 TABLETS ??? clopidogrel (PLAVIX) 75 MG tablet Take 75 mg by mouth at bedtime. ??? rosuvastatin (CRESTOR) 10 MG tablet Take 10 mg by mouth at bedtime. ??? latanoprost (XALATAN) 0.005 % ophthalmic solution Instill 1 Drop into both eyes at bedtime. ??? ALBUTEROL IN Inhale by mouth as directed. ??? multivitamin with iron (ONE A DAY WITH IRON) tablet Take 1 Tab by mouth once daily. ??? Cyanocobalamin (B-12) 1000 MCG TBCR Take by mouth once daily. ??? vitamin D2 (ERGOCALCIFEROL) 82658 UNIT capsule Take 1 Cap by mouth every 7 days. Review of Systems - Negative except PI and lymphedema Exam: BP 128/74 Pulse 91 Resp 12 Wt 90.447 kg (199 lb 6.4 oz) BMI 32.82 kg/m2 Cognitively: Alert and oriented times 3. Attention and concentration, fund of knowledge, recent andremote memory and central language function are intact. Cranial Nerves: II: Full field of vision to confrontation. IIl, lV, Vl:Extraocular movements intact. PERRLA V: Normal motor and sensory function VII: Normal facial movement and symmetry VIII: Intact hearing to confrontation lX , X: Palate midline and elevates normally. Normal gag Xl: Normal shoulder shrug XII: Tongue midline and protrudes normally without atrophy Neck: Without bruits Motor: Legs are a little weak proximal and distal. Sensory: Distal vib loss Muscle stretch reflexes symmetric at 1-2 at the biceps, triceps, brachioradialis, knees and ankles. Cerebellum: intact on finger to nose. Casual gait: Needs assist ASSESSMENT: HSP Stroke Back pain. 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
--- OUTSIDE RECORDS SUMMARY | 2024-05-26 12:46 | XMS_ITS | Encounter Summary ---
Author Organization [facility] Health Address [address] [place] [address] Care Team Providers Care Director Of Pediatric Rehabilitation Name Role Phone Unavailable Primary Care Provider Unavailabl e Reason for Referral * - Closed Specialty Diagnoses / Procedures Referred By Alejandrina vale Referred To Contact Diagnoses HSP (hereditary spastic paraplegia) (HCC) Stroke (HCC) Procedures [place] [address] [address] Referral ID Status Reason Start Date Expiration Date Visits Re quested Visits Authorized [id number] Closed 01/06/2012 07/04/2012 1 1 * Evaluate & Treat - Closed Specialty Diagnoses / Procedures Referred By Alejandrina vale Referred [place] [address] [facility] [address] [address] Brijesh Villela MD [address] [place] [address] Referral ID Status Reason Start Date Expiration Date V isits Requested Visits Authorized [id number] Closed Specialty Services Required 01/06/2012 07/04/2012 3 3 Reason for Visit * Reason Comments Follow-up Encounter Details Date Type Department Care Team (Late st Contact Info) Description 01/06/2012 9:40 AM CDT Office Visit [facility] [address] [facility] [address] [place] [address] [place] [address] [place] [address] Stroke (HCC) (Primary Dx); HSP (hereditary spastic paraplegia) (HCC); Back pain Social History Tobacco Use Types Packs/Day Years Used Date Smoking Tobacco: Never Assessed Sex and Gender Information Value Date Recorded Sex Assigned at Not on file Gender Identity Not on file Sexual Orientation Not on file documented as of this encounter Last Filed Vital Signs Vital Sign Reading Time Taken Comments Blood Pressure 122/80 01/06/2012 10:06 AM CDT Pulse 80 01/06/2012 10:06 AM CDT Temperature - - Respiratory Rate 12 01/06/2012 10:06 AM CDT Oxygen Saturation - - Inhaled Oxygen Concentration - - Weight 93.4 kg (206 lb) 01/06/2012 10:06 AM CDT Height 162.6 cm (5' 4 ) 01/06/2012 10:06 AM CDT Body Mass Index 35.36 01/06/2012 10:06 AM CDT documented in this encounter Patient Instructions * Patient Instructions* Alice Mancera - 01/06/2012 10:54 AM CDT Call physician if symptoms worsen or with any questions. Take Medications as prescribed. For descriptions of a variety of neurological conditions please visit: [email or web address] Please contact our office 48 hours after testing is complete for results. documented in this encounter Progress Notes * Nelson Ross MD - 01/06/2012 10:26 AM CDT CC:HSP and stroke IH: Was in [place] on the and had some trouble walking and slurring of speech. States her mouth was dry. Symptoms improved after 2 days. Did not seek medical care. Arms and legs were OK and no double vision. Bladder is adequate. Had surgery. HSP is the same. Has been headache free since TCA but weight gain. Still having back pain. Going to pain mgmt. Outpatient Prescriptions Marked as Taking for the 01/06/12 encounter (Office Visit) with Nelson Ross MD Medication Sig Dispense Refill ??? triamterene-hydrochlorothiazide (DYAZIDE) 37.5-25 MG capsule Take 37.5 Caps by mouth 2 times daily. ??? amitriptyline (ELAVIL) 50 MG tablet Take 1 Tab by mouth at bedtime. 90 Tab 3 ??? esomeprazole (NEXIUM) 40 [...] mouth once daily. ??? vitamin D2 (ERGOCALCIFEROL) 78691 UNIT capsule Take 1 Cap by mouth every 7 days. Review of Systems - Negative except PI. Sleeps OK with CPAP. No palpitations Exam: BP 122/80 Pulse 80 Resp 12 Wt 206 lb (93.441 kg) BMI 35.36 kg/m2 Gait slow and deliberate. EOMs normal FFOV. Alert and oriented with normal language 5,7,12 OK Motor 5/5 Sensory grossly intact FTN intact Right carotid bruit Cardiac murmur - ? ASSESSMENT: ? Recent stroke without residual - new requiring further work up HSP Back Pain PLAN: Continue Plavix and statin Duplex MRI Pain mgmt Call 3 month follow up documented in this encounter Plan of Treatment Scheduled Orders Name Type Priority Associated Diagnoses Orde r Schedule CAROTID ULTRASOUND NEUROLOGY Neurology Routine Stroke (HCC) 1 Occurrences starting 01/06/2012 until 01/05/2013 Scheduled Referrals Name Type Priority Associated Diagnoses Orde r Schedule AMB REFERRAL TO PAIN CLINIC Outpatient Referral Routine Back pain Ordered: 01/06/2012 documented as of this encounter Results * MRI BRAIN NON CONTRAST (01/13/2012 10:29 AM CDT) Anatomical Region Laterality Modality Head Magnetic Resonan ce 01/13/2012 10:5 3 AM CDT Narrative 01/13/2012 10:53 AM CDT MRI Brain Noncontrast Indication for examination: Cerebral infarction. No disorder.. Technique: Noncontrast T1 and T2-weighted axial, T1-weighted sagittal and T2-weighted coronal images of the brain are obtained. ??No prior studies are available. Findings: No acute infarct or restricted diffusion is identified. There are numerous punctate areas of abnormal signal intensity within the periventricular and subcortical white matter bilaterally, with a pattern suggesting chronic small vessel ischemic change. There is mild involvement of the mid sukh. There is relative sparing of the basal ganglia. There is no regional or cortical infarct. There is no mass lesion or fluid collection. Ventricles are not significantly dilated. CONCLUSION: Chronic small vessel ischemic change as described. This is moderate in degree. No acute intracranial abnormality identified. Procedure Note Nelson Ma MD - 01/13/2012 MRI Brain Noncontrast Indication for examination: Cerebral infarction. No disorder.. Technique: Noncontrast T1 and T2-weighted axial, T1-weighted sagittal and T2-weighted coronal images of the brain are obtained. No prior studies are available. Findings: No acute infarct or restricted diffusion is identified. There are numerous punctate areas of abnormal signal intensity within the periventricular and subcortical white matter bilaterally, with a pattern suggesting chronic small vessel ischemic change. There is mild involvement of the mid sukh. There is relative sparing of the basal ganglia. There is no regional or cortical infarct. There is no mass lesion or fluid collection. Ventricles are not significantly dilated. CONCLUSION: Chronic small vessel ischemic change as described. This is moderate in degree. No acute intracranial abnormality identified. 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
--- OUTSIDE RECORDS SUMMARY | 2024-05-26 12:46 | XMS_ITS | Encounter Summary ---
Author Organization [facility] Address [address] [facility] [place] [address] Care Team Providers Care Drop Count Associate Name Role Phone Unavailable Primary Care Provider Unavailabl e Reason for Visit * Reason Comments Follow-up Encounter Details Date Type Department Care Team (Late st Contact Info) Description 04/06/2012 9:40 AM ORACLE DATABASE ANALYST Office Visit [facility] [address] [facility] [address] [place] [address] [place] [address] [address] HSP (hereditary spastic paraplegia) (HCC) [...] Sign Reading Time Taken Comments Blood Pressure 122/60 04/06/2012 10:21 AM ORACLE DATABASE ANALYST Pulse 80 04/06/2012 10:21 AM ORACLE DATABASE ANALYST Temperature - - Respiratory Rate 12 04/06/2012 10:21 AM ORACLE DATABASE ANALYST Oxygen Saturation - - Inhaled Oxygen Concentration - - Weight 90.7 kg (200 lb) 04/06/2012 10:21 AM ORACLE DATABASE ANALYST Height 165.1 cm (5' 5 ) 04/06/2012 10:21 AM ORACLE DATABASE ANALYST Body Mass Index 33.28 04/06/2012 10:21 AM ORACLE DATABASE ANALYST documented in this encounter Patient Instructions * Patient Instructions* TorriSamina rodas - 04/06/2012 10:27 AM ORACLE DATABASE ANALYST Call physician if symptoms worsen or with any questions. Take Medications as prescribed. For descriptions of a variety of neurological conditions please visit: [email or web address] LE DATABASE ANALYST documented in this encounter Progress Notes * Nelson Ross MD - 04/06/2012 10:15 AM CST CC: HSP IH: Has been having more falling. Twice her knee buckled and once because of loss of balance. No new stroke like events. Still with back pain. Never went to pain mgmt. Walks with a walker. Bladder isbetter since surgery. Outpatient Prescriptions Marked as Taking for the 04/06/12 encounter (Office Visit) with Nelson Ross MD Medication Sig Dispense Refill ??? budesonide (PULMICORT) 0.25 MG/2ML nebulizer suspension [...] mouth once daily. ??? vitamin D2 (ERGOCALCIFEROL) 04230 UNIT capsule Take 1 Cap by mouth every 7 days. Review of Systems - Negative except PI and sleeps with CPAP. No CP or SOB. MRI reviewed. No acute strokes Duplex normal Exam: BP 122/60 Pulse 80 Resp 12 Cognitively: Alert and oriented times 3. Attention and concentration, fund of knowledge, recent andremote memory and central language function are intact. Cranial Nerves: II: Full field of vision to confrontation. IIl, lV, Vl:Extraocular movements intact with mild nystagmus. PERRLA V: Normal motor and sensory function VII: Normal facial movement and symmetry VIII: Intact hearing to confrontation lX , X: Palate midline and elevates normally. Normal gag Xl: Normal shoulder shrug XII: Tongue midline and protrudes normally without atrophy Neck: Radiated murmur. Motor: Normal tone, power and bulk Sensory: Intact to touch and vibration Muscle stretch reflexes symmetric at 2/2 at the biceps, triceps, brachioradialis, knees and ankles. Edema of legs Cerebellum: intact on finger to nose. Casual gait: Slow and cautious Chest clear to auscultation Cor: Regular sinus rhythm. Murmur - ? 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
--- OUTSIDE RECORDS SUMMARY | 2024-05-26 12:46 | XMS_ITS | Encounter Summary ---
Author Organization [facility] Address [address] [facility] [place] [address] Care Team Providers Care Nursing Information Systems Coordinator Name Role Phone Unavailable Primary Care Provider Unavailabl e Reason for Referral * - Closed Specialty Diagnoses / Procedures Referred By Alejandrina vale Referred To Contact Diagnoses HSP (hereditary spastic paraplegia) (HCC) Stroke (HCC) Procedures [place] [address] [facility] [address] [address] Referral ID Status Reason Start Date Expiration Date Visits Re quested Visits Authorized [id number] Closed 01/06/2012 07/04/2012 1 1 Reason for Visit * - Closed Specialty Diagnoses / Procedures Referred By Alejandrina vale Referred To Contact Diagnoses HSP (hereditary spastic paraplegia) (HCC) Stroke (HCC) Procedures [place] [address] [facility] [address] [address] Referral ID Status Reason Start Date Expiration Date Visits Re quested Visits Authorized [id number] Closed 01/06/2012 07/04/2012 1 1 Encounter Details Date Type Department Care Team (Latest Contact Info) Description 01/13/2012 9:43 AM CDT - 01/13/2012 9:59 AM CDT Hospital Encounter [facility] [place] [address] [place] [address] Discharge Disposition: Home or Self Care Social [...] mouth once daily. 08/10/2013 vitamin D2 (ERGOCALCIFEROL) 51145 UNIT capsule Take 1 Cap by mouth every 7 days. 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
--- OUTSIDE RECORDS SUMMARY | 2024-05-26 12:46 | XMS_ITS | Encounter Summary ---
Author Organization [facility] Health Address [address] [place] [address] Care Team Providers Care Gas Treater Name Role Phone Unavailable Primary Care Provider Unavailabl e Reason for Visit * Reason Onset Date Comments Refill Request 01/18/2014 Encounter Details Date Type Department Care Team (Late st Contact Info) Description 01/18/2014 Telephone [facility] Neurosciences [address] [facility] [address] [place] [address] [place] [address] [address] Refill Request Social History Tobacco [...] encounter Miscellaneous Notes * Telephone Encounter - Jasmyn Swift - 01/18/2014 8:58 AM CDT Patient needs a refill for her Amitriptyline 25 mg qhs # 90 day supply. She would like it sent to [facility]. Please advise. documented in this encounter Plan of Treatment Not on file documented as of this encounter Visit Diagnoses Not on filedocumented in this encounter
--- OUTSIDE RECORDS SUMMARY | 2024-05-26 12:46 | XMS_ITS ---
Author Organization [facility] Address [address] [facility] [place] [address] Care Team Providers Care Cotton Machine Operator Name Role Phone Etienne Florez MD Unavailable [phone] Enrique Gonzalez MD Unavailable Nelson Ross MD Unavailable Laz Valencia MD Unavailable Russell Moran MD Unavailable Yuliya Ibarra MD Unavailable [phone] Phuong Callejas DPM Unavailable Sy Barrientos MD Unavailable [phone] Russell Moran MD Unavailable [phone] Rico Gasca MD Unavailable Elle Landaverde MD Unavailable Kirk Truong MD Unavailable Shira Love DO Unavailable [phone] Sara Schultz MD Unavailable [phone] Hussain Ray MD Unavailable [phone] Elizabeth Car MD Primary Care Provider + PAC Admission - [facility] Status:Closed (Closed) Start date:05/31/2022 Enrollment reason:Identified using hospital discharge data End date:05/31/2022 Close reason:Does not meet the criteria Continued Care and Services Coordination
--- OUTSIDE RECORDS SUMMARY | 2024-05-26 12:46 | XMS_ITS | Encounter Summary ---
Author Organization [facility] Address [address] [place] [address] Care Team Providers Care Marine Oiler Name Role Phone Unavailable Primary Care Provider Unavailabl e Reason for Visit * Reason Comments Fall Pt was at home when tripped and fell. Pt c/o R knee and R ankle pain. Encounter Details Date Type Department Care Team (Late st Contact Info) Description 02/12/2012 3:59 PM CDT - 02/12/2012 6:52 PM CDT Emergency ER at [address] [address] [place] [address] [place] [address] Fall; Knee pain; Ankle sprain Discharge Disposition: Home or Self Care Social History Tobacco Use Types Packs/Day Years Used Date Smoking Tobacco: Never Assessed Sex and Gender Information Value Date Recorded Sex Assigned at Not on file Gender Identity Not on file Sexual Orientation Not on file documented as of this encounter Last Filed Vital Signs Vital Sign Reading Time Taken Comments Blood Pressure 139/69 02/12/2012 4:03 PM CDT Pulse 81 02/12/2012 4:03 PM CDT Temperature 36.3 ??C (97.4 ??F) 02/12/2012 4:03 PM CD T Respiratory Rate 18 02/12/2012 4:03 PM CDT Oxygen Saturation 97% 02/12/2012 4:03 PM CDT Inhaled Oxygen Concentration - - Weight 90.7 kg (200 lb) 02/12/2012 4:03 PM CDT Height 162.6 cm (5' 4 ) 02/12/2012 4:03 PM CDT Body Mass Index 34.33 02/12/2012 4:03 PM CDT documented in this encounter Discharge Instructions * Discharge Instructions* Dianna Palacio, DO - 02/12/2012 6:26 PM CDT Ankle Sprain An ankle sprain is an injury to the ligaments that hold the ankle joint together. CAUSE The injury is usually caused by a fall or by twisting the ankle. It is important to tell your caregiver how the injury occurred and whether or not you were able to walk immediately after the injury. SYMPTOMS Pain is the primary symptom. It may be present at rest or only when you are trying to stand or walk. The ankle will likely be swollen. Bruising may develop immediately or after 1 or 2 days. It may bedifficult or impossible to stand or walk. This depends on the severity of the sprain. DIAGNOSIS Your caregiver can determine if a sprain has occurred based on the accident details and on examination of your ankle. Examination will include pressing and squeezing areas of the foot and ankle. Yourcaregiver will try to move the ankle in certain ways. X-rays may be used to be sure a bone was not broken, or that the ligament did not pull off of a bone (avulsion). There are standard guidelines that can reliably determine if an x-ray is needed. RISKS AND COMPLICATIONS A person who has sprained their ankle will be more prone to a repeat sprain. buttermaker pain with standing or walking or difficulty walking (chronic instability of the ankle) may result from an ankle sprain. TREATMENT Rest, ice, elevation, and compression are the basic modes of treatment (see home care instructions,below). Certain types of braces can help stabilize the ankle and allow early return to walking. Your caregiver can make a recommendation for this. Medication may be recommended for pain. You may be referred to an orthopedist or a physical therapist for certain types of severe sprains. HOME CARE INSTRUCTIONS ?? Apply ice to the sore area for 15 to 20 minutes four times per day. Do this while you are awake for the first 2 days, or as directed. This can be stopped when the swelling goes away. Put the ice in a plastic bag and place a towel between the bag of ice and your skin. ?? Keep your leg elevated when possible to lessen swelling. ?? If your caregiver recommends crutches, use them as instructed with a non- weight bearing cast for1 week. Then, you may walk on your ankle as the pain allows, or as instructed. Gradually, put weight on the affected ankle. Continue to use crutches or cane until you can walk without causing pain. ?? If a plaster splint was applied, wear the splint until you are seen for a follow-up examination.Rest it on nothing harder than a pillow the first 24 hours. DO NOT put weight on it. DO NOT get it wet. You may take it off to take a shower or bath. ?? You may have been given an elastic bandage to use with the plaster splint, or you may have been given a elastic bandage to use alone. The elastic bandage is too tight if you have numbness, tingling, or if your foot becomes cold and blue. Adjust the bandage to make it comfortable. ?? If an air splint was applied, you may blow more air into it or take some out to make it more comfortable. You may take it off at night and to take a shower or bath. Wiggle your toes in the splint several times per day if you are able. ?? Only take [id number] or prescription medicines for pain, discomfort, or fever as directed by your caregiver. ?? Do not drive a vehicle until your caregiver specifically tells you it is safe to do so. SEEK MEDICAL CARE IF: ?? You have an increase in bruising, swelling, or pain. ?? You notice coldness of your toes. ?? Pain relief is not achieved with medications. SEEK IMMEDIATE MEDICAL CARE IF: your toes are numb or blue or you have severe pain. MAKE SURE YOU: ?? Understand these instructions. ?? Will watch your condition. ?? Will get help right away if you are not doing well or get worse. Document Released: 05/24/2008 Document Re-Release Knee Sprain You have a knee sprain. Sprains are painful injuries to the joints. They are a partial or complete tearing of ligaments. Ligaments are tough, fibrous tissues that hold bones together at the joints. Astrain (sprain) has occurred when a ligament is stretched or damaged. This injury may take several weeks to heal. This is often the same length of time as a bone fracture (break in bone) takes to heal. Even though a fracture (bone break) may not have occurred, the recovery times may be similar. HOME CARE INSTRUCTIONS ?? Rest the injured area as directed. Then slowly start using the joint as directed by your caregiver and as the pain allows. Use crutches as directed. If the knee was splinted or casted, continue use and care as directed. If an niya bandage has been applied today, it should be removed and reappliedevery 3 to 4 hours. It should not be applied tightly, but firmly enough to keep swelling down. Watch toes and feet for swelling, bluish discoloration, coldness, numbness or excessive pain. If any of these symptoms occur, remove the niya bandage and reapply more loosely. If these symptoms persist, seek medical attention. ?? For the first 24 hours, lie down. Keep the injured extremity elevated on two pillows. ?? Apply ice to the injured area for fifteen minutes every couple hours. Do this while awake for the first half day. Repeat this four times per day for the first 48 hours. Put the ice in a plastic bag and place a towel between the bag of ice and your skin. ?? Wear any splinting, casting, or elastic bandage applications as instructed. ?? Only take [id number] or prescription medicines for pain, discomfort, or fever as directed by your caregiver. Do not use aspirin immediately after the injury unless instructed by your caregiver. Aspirin can cause increased bleeding and bruising of the tissues. ?? If you were given crutches, continue to use them as instructed. Do not resume weight bearing on the affected extremity until instructed. Persistent pain and inability to use the injured area as directed for more than 2 to 3 days are warning signs. If this happens you should see a caregiver for a follow-up visit as soon as possible. Initially, a hairline fracture (this is the same as a broken bone) may not be evident on x-rays. Persistent pain and swelling indicate that further evaluation, non-weight bearing (use of crutches as instructed), and/or further x-rays are indicated. X-rays may sometimes not show a small fracture until a week or ten days later. Make a follow-up appointment with your own caregiver or one to whom we have referred you. A radiologist (specialist in reading x-rays) may re-read your X-rays. Make sure you know how you are to get your x-ray results. Do not assume everything is normal if you do not hear from us. SEEK MEDICAL CARE IF: ?? Bruising, swelling, or pain increases. ?? You have cold or numb toes. ?? You have continuing difficulty or pain with walking. SEEK IMMEDIATE MEDICAL CARE IF: ?? Your toes are cold, numb or blue. ?? The pain is not responding to medications and continues to stay the same or get worse. MAKE SURE YOU: ?? Understand these instructions. ?? Will watch your condition. ?? Will get help right away if you are not doing well or get worse. Document Released: 05/05/2006 Document Re-Released: 08/01/2009 ExitCare?? Patient Information ??2009 [employer]. d: 08/01/2009 ExitCare?? Patient Information ??2009 [employer]. documented in this encounter Medications at Time [...] mouth once daily. 08/10/2013 vitamin D2 (ERGOCALCIFEROL) 32044 UNIT capsule Take 1 Cap by mouth every 7 days. 08/10/2013 documented as of this encounter ED Notes * Dianna Palacio DO - 02/12/2012 6:20 PM CDT Provider contact with the patient: 02/12/2012 18:20 Perla Leon [id number] [facility] EM[facility]GENC[facility]PART[facility] History Chief Complaint Patient presents with ??? Fall Pt was at home when tripped and fell. Pt c/o R knee and R ankle pain. The above entry was not written by me HPI Comments: 6:20 PM Perla Leon, a 71 y.o. female with a past medical history that includes--duodenal ulcer, sacrum fracture, partial seizures, heart murmur, lymphatic edema, and TIA--presents to the ER c/o right knee and ankle pain after fall earlier this afternoon around 1700. Pt states she tripped over some furniture at home which caused her to lose her balance and fall. Reports previous fracture to right ankle which has since healed. Denies any other physical complaints or modifying factors at this time. Denies hitting head, LOC, SOB, lightheadedness, neck pain, back pain, and focal weakness. Pt isambulatory at this time and was ambulatory after fall. States she ambulates with walker assistance. Has been able to bear weight. Does use a walker PCP: Grupo Garcia Past Medical History Diagnosis Date ??? Duodenal ulcer, unspecified as acute or chronic, without hemorrhage, perforation, or obstruction 1977 ??? Familial spastic paraplegia 1979 ??? Pneumonia 1989, 08/2005, 07/2010 ??? Fracture of sacrum 05/1999 [facility] ??? TIA (transient ischemic attack) 2000, 08/11/2008 ??? Partial seizures 2000 ??? Glaucoma 06/2003 ??? Heart murmur 01/27/2004, 03/13/2004 ??? Broken ankle 12/19/2003 ??? Lymphatic edema Past Surgical History Procedure Date ??? Hysterectomy 1986 ??? Cholecystectomy 10/28/1997 [...] LT ARM ??? Cardiac cath 08/04/2002, 09/06/2010 No family history on file. History Social History ??? Marital Status: Spouse Name: N/A Number of Children: N/A ??? Years of Education: N/A Occupational History ??? Not on file. Social History Main Topics ??? Smoking status: Not on file ??? Smokeless tobacco: Not on file ??? Alcohol Use: Not on file ??? Drug Use: Not on file ??? Sexually Active: Not on file Other Topics Concern ??? Not on file Social History Narrative ??? No narrative on file Review of Systems Review of Systems Constitutional: Negative for fever and chills. HENT: Negative for congestion and neck pain. Eyes: Negative for blurred vision and double vision. Respiratory: Negative for cough and shortness of breath. Cardiovascular: Negative for chest pain and palpitations. Gastrointestinal: Negative for nausea, vomiting, abdominal pain and diarrhea. Genitourinary: Negative for dysuria and urgency. Musculoskeletal: Positive for joint pain and falls. Negative for back pain. Skin: Negative for itching and rash. Neurological: Negative for focal weakness, loss of consciousness and headaches. All other systems reviewed and are negative. Physical Exam BP 139/69 Pulse 81 Temp 97.4 ??F Resp 18 Ht 5' 4 (1.626 m) Wt 200 lb (90.719 kg) BMI 34.33 kg/m2 SpO2 97% Physical Exam Nursing note and vitals reviewed. Constitutional: She is oriented to person, place, and time and well-developed, well-nourished, and in no distress. HENT: Head: Normocephalic and atraumatic. Eyes: Conjunctivae and EOM are normal. Neck: Neck supple. Cardiovascular: Normal rate, regular rhythm and normal heart sounds. Pulmonary/Chest: Effort normal and breath sounds normal. No respiratory distress. Abdominal: Soft. Bowel sounds are normal. She exhibits no distension. There is no tenderness. Thereis no rebound and no guarding. Musculoskeletal: Normal range of motion. She exhibits no edema. chronic mild pedal edema; full ROM; no signs of trauma; DP equal No bruising No ligament laxity Neurological: She is alert and oriented to person, place, and time. Skin: Skin is warm and dry. Psychiatric: Affect normal. Medications Current Outpatient Prescriptions Medication Sig Dispense Refill ??? amitriptyline (ELAVIL) 25 MG tablet Take [...] mouth once daily. ??? vitamin D2 (ERGOCALCIFEROL) 03846 UNIT capsule Take 1 Cap by mouth every 7 days. Procedures Procedures EKG Interpretation Lab Interpretation Oxygen Saturation Interpretation The oxygen saturation level is: 97%. The patient was on Room Air for the saturation measurement. Measurement frequency: Continuous. Oxygen saturation interpretation is Normal. No results found for this visit on 02/12/12. XR KNEE 4+ VW RIGHT Final Result: Negative acute for fracture at this time. Please see above. XR ANKLE 3+ VW RIGHT Final Result: No acute-appearing fracture can be identified at the ankle. The distal fibula is deformed suggesting old healed fracture but I do not have prior films available at this time. XR KNEE 1 OR 2 VW RIGHT (Results Pending) XR ANKLE 2 VW RIGHT (Results Pending) Progress Notes ED Course Medical Decision Making I have reviewed the: Previous Chart, Nursing Notes and Vitals. I have interpreted the following results: X-Ray and Oxygen Saturation. Orders Placed This Encounter ??? XR KNEE 4+ VW RIGHT ??? XR ANKLE 3+ VW RIGHT 6:25 PM Rechecked pt - states her pain is tolerable and requests discharge at this time. Reports nofurther complaints or modiyfing factors at this time. I have given the patient instructions regarding her diagnosis, expectations, follow up, and return precautions. I explained to the patient that emergent conditions may arise and to return to the ER for new, worsening, or any persistent conditions. I've explained the importance of following up with her doctor--Grupo Garcia--(or the referral physician) as instructed. The patient verbalized understanding of the discharge instructions. Diagnosis: Final diagnoses: Fall Knee pain Ankle sprain New Medications: New Prescriptions No medications on file I have advised the patient to follow-up with: Grupo Garcia MD [address] [place] [address] Disposition: Discharged I have reviewed the information recorded by the scribe and agree with its accuracy and contents--Dr. Palacio Transcribed by Cindy Downey--acting scribe on behalf of Dr. Palacio documented in this encounter Miscellaneous Notes * Miscellaneous Scans - Document, Scanned - 02/28/2012 9:44 AM CDT * Miscellaneous Scans - Document, Scanned - 02/28/2012 8:14 AM CDT documented in this encounter Plan of Treatment Not on file documented as of this encounter Procedures Procedure Name Priority Date/Time Associated Diagnosis Comments XR ANKLE RIGHT 3VW OR MORE STAT 02/12/2012 4:57 PM CDT Fall XR KNEE RIGHT 4VW OR MORE STAT 02/12/2012 4:56 PM CDT Fall documented in this encounter Results * XR ANKLE 3+ VW RIGHT (02/12/2012 [...] Nelson Pro MD DIAGNOSTIC IMAGING O RDERABLES documented in this encounter Visit Diagnoses Diagnosis Fall Unspecified fall Knee pain Pain in joint, lower leg Ankle sprain Sprain of ankle, unspecified site documented in this encounter
--- OUTSIDE RECORDS SUMMARY | 2024-05-26 12:46 | XMS_ITS | Encounter Summary ---
Author Organization [facility] Address [address] [place] [address] Care Team Providers Care Lokie Driver Name Role Phone Unavailable Primary Care Provider Unavailabl e Encounter Details Date Type Department Care Team (Latest Contact Info) Description 01/13/2012 10:00 AM CDT - 01/13/2012 10:42 AM CDT Hospital Encounter [facility] Vascular Services [address] [place] [phone] Discharge Disposition: Home or Self Care Social [...] mouth once daily. 08/10/2013 vitamin D2 (ERGOCALCIFEROL) 64749 UNIT capsule Take 1 Cap by mouth every 7 days. 08/10/2013 documented as of this encounter Procedure Notes * Document, Scanned - 01/13/2012 3:33 PM CDTAssociated Order(s): VAS CAROTID DUPLEX BILATERAL documented in this encounter Plan of Treatment [...] in this encounter Visit Diagnoses Diagnosis Stroke (HCC) Unspecified cerebral artery occlusion with cerebral infarction documented in this encounter
--- OUTSIDE RECORDS SUMMARY | 2024-05-26 12:46 | XMS_ITS ---
Author Organization [facility] Address [address] [place] [address] Care Team Providers Care Nuclear Power Reactor Operator Name Role Phone Etienne Florez MD Unavailable [phone] Enrique Gonzalez MD Unavailable [phone] Nelson Ross MD Unavailable Laz Valencia MD Unavailable Russell Moran MD Unavailable Yuliya Ibarra MD Unavailable [phone] Phuong Callejas DPM Unavailable [phone] Sy Barrientos MD Unavailable Russell Moran MD Unavailable Rico Gasca MD Unavailable Elle Landaverde MD Unavailable Kirk Truong MD Unavailable Shira Love DO Unavailable [phone] Sara Schultz MD Unavailable [phone] Hussain Ray MD Unavailable Elizabeth Car MD Primary Care Provider + Acute Admission - [facility] Status:Closed (Closed) Start date:05/21/2022 Enrollment date:05/21/2022 Enrollment reason:Identified using claims or encounter data End date:05/31/2022 Close reason:Following in other program Continued Care and Services Coordination
--- OUTSIDE RECORDS SUMMARY | 2024-05-26 12:46 | XMS_ITS | Encounter Summary ---
Author Organization [facility] Address [address] [place] [address] Care Team Providers Care Airline Pilot Name Role Phone Unavailable Primary Care Provider Unavailabl e Reason for Visit * Reason Comments Follow-up spinal cerebellar de generation Encounter Details Date Type Department Care Team (Late st Contact Info) Description 01/07/2011 10:15 AM CDT Office Visit [facility] Neurosciences [address] [address] [place], [place] [id number] [place] [address] [phone] STROKE (HCC) (Primary Dx) Social History Tobacco Use Types Packs/Day Years Used Date Smoking Tobacco: Never Assessed Sex and Gender Information Value Date Recorded Sex Assigned at Not on file Gender Identity Not on file Sexual Orientation Not on file documented as of this encounter Last Filed Vital Signs Vital Sign Reading Time Taken Comments Blood Pressure 140/80 01/07/2011 11:00 AM CDT Pulse 82 01/07/2011 11:00 AM CDT Temperature - - Respiratory Rate 12 01/07/2011 11:00 AM CDT Oxygen Saturation - - Inhaled Oxygen Concentration - - Weight - - Height - - Body Mass Index - - documented in this encounter Progress Notes * Nelson Ross MD - 01/07/2011 10:44 AM CDT Still a little vertigo. Unsure if head or balance.More a balance issue without true vertigo. Bladder surgery helped quite a bit. Bladder is emptying. No new stroke like symptoms. Remains on meds. Spinal cerebellar degeneration is stable. Back pain continues. Mostly related to standing and activity. Current Outpatient Prescriptions Medication ??? esomeprazole (NEXIUM) 40 MG capsule ??? valsartan (DIOVAN) 80 MG tablet ??? triamterene-hydrochlorothiazide (MAXZIDE) 75-50 MG tablet ??? potassium chloride (KLOR-CON 10) 10 MEQ tablet ??? amitriptyline (ELAVIL) 50 MG tablet ??? clopidogrel (PLAVIX) 75 MG tablet ??? rosuvastatin (CRESTOR) 10 MG tablet ??? latanoprost (XALATAN) 0.005 % ophthalmic solution ??? multivitamin with iron (ONE A DAY WITH IRON) tablet ??? Cyanocobalamin (B-12) 1000 MCG TBCR ??? vitamin D2 (ERGOCALCIFEROL) 37806 UNIT capsule ??? ALBUTEROL IN Review of Systems - Negative except Pi. All other systems are reviewed and are negative. Duplex reviewed and negative. Recent cardiac cath reviewed. BP 140/80 Pulse 82 Resp 12 Cognitive: Alert and oriented X 3. Attention concentration, fund of knowledge and recent and remotememory are intact. Central language function is normal without evidence of aphasia. Cranial nerves: II - Intact visual acuity. FFOV to confrontation. III, IV, - EOMs intact without evidence of diplopia or nystagmus. V - Motor and Sensory components intact. VII - Facial movement intact. VIII - Hearing intact. Normal Mcdonald and Rinne IX, X - Palate midline and elevates normally. Intact gag. Uvula midline. XII - Tongue protrudes in the midline without atrophy or fasciculations. Neck: ROM normal. Carotids without bruits. Motor: Increased tone legs. Hips 5-/4+. Sensory: Intact to touch and mild distal vibration loss. Reflexes: Brisk at Biceps, Triceps, Brachioradialis, Knees and Ankles. Cerebellum: Intact FTN. Drift: Negative Gait: Spastic ASSESSMENT: Stable SCD Stable CVD Back pain chronic PLAN: Continue current meds. documented in this encounter Plan of Treatment Not on file documented as of this encounter Visit Diagnoses Diagnosis Stroke (HCC)- Primary Unspecified cerebral artery occlusion with cerebral infarction documented in this encounter
--- OUTSIDE RECORDS SUMMARY | 2024-05-26 12:57 | XMS_ITS | Encounter Summary ---
Author Organization [facility] Healthcare Address [address] [place] [address] Care Team Providers Care It Program Manager Name Role Phone Migue Herman MD Unavailable [phone] Sonny Palmer MD Unavailable [phone] Elizabeth Car MD Primary Care Provider Reason for Visit * Reason Comments Follow-up Echo Encounter Details Date Type Department Care Team (Late st Contact Info) Description 03/04/2024 2:30 PM CDT Office Visit [facility] Medical Group Cardiology [address] [id number] Maria Dolores Kinsey NP [address] [facility] [address] [address] Aortic valve stenosis, etiology of cardiac valve disease unspecified (Primary Dx); Coronary artery disease involving [place] coronary artery of [place] heart without angina pectoris; PAF (paroxysmal atrial fibrillation) (CMS/HCC) (HCC); Chronic anticoagulation Social History Tobacco Use Types Packs/Day Years Used Date Smoking Tobacco: Never Smokeless Tobacco: Never Tobacco Cessation:Counseling Given: Not Answered Alcohol Use Standard Drinks/Week Comments No 0 (1 standard drink = 0.6 oz pur e alcohol) Social Connection and Isolat ion Panel [NHANES] Answer Date Recorded In a typical week, how many times do you talk on the phone with family, friends, or neighbors? More than three times a week 12/25/2020 How often do you get togethe r with friends or relatives? More than three times a week 12/25/2020 How often do you attend chur ch or yarsanism services? Never 12/25/2020 Do you belong to any clubs o r organizations such as caodaism groups, unions, fraternal or athletic groups, or school groups? No 12/25/2020 How often do you attend meet ings of the clubs or organizations you belong to? Never 12/25/2020 Are you , , di vorced, , never , or living with a partner? 12/25/2020 Overall Financial Resource Strain (CARDIA) Answe r Date Recorded How hard is it for you to pa y for the very basics like food, housing, medical care, and heating? Not very hard 12/25/2020 PHQ-2 Answer Date Recorded PHQ-2 Score 0 03/06/2019 Hunger Vital Sign Answer Date Recorded Within the past 12 months, y ou worried that your food would run out before you got the money to buy more. Never true 12/26/19 21 Within the past 12 months, t he food you bought just didn't last and you didn't have money to get more. Never true 12/25/2020 PRAPARE - Transportation Answer Date Re corded In the past 12 months, has l ack of transportation kept you from medical appointments or from getting medications? No 01/2021 In the past 12 months, has l ack of transportation kept you from meetings, work, or from getting things needed for daily living? 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 Gender Identity Not on file Sexual Orientation Not on file documented as of this encounter Last Filed Vital Signs Vital Sign Reading Time Taken Comments Blood Pressure 122/72 03/04/2024 2:34 PM CDT Pulse 86 03/04/2024 2:34 PM CDT Temperature - - Respiratory Rate - - Oxygen Saturation 93% 03/04/2024 2:34 PM CDT Inhaled Oxygen Concentration - - Weight 79.4 kg (175 lb) 03/04/2024 2:34 PM CDT Height 165.1 cm (5' 5 ) 03/04/2024 2:34 PM CDT Body Mass Index 29.12 03/04/2024 2:34 PM CDT documented in this encounter Progress Notes * Maria Dolores Kinsey, LOTTIE - 03/04/2024 2:30 PM CDT Images from the original note were not included. [facility] Medical Group Cardiology [address] [place] [address] Date of Visit: 03/04/2024 Patient ID: Perla Leon 1940 Chief Complaint Patient presents with Follow-up Echo Perla Leon is a 83 y.o. female who is an established patient of Dr. Quintero with a history of AFiband aortic stenosis returning to the office for routine follow-up. History of Present Illness: Perla Leon is a 83 y.o. female who presents to establish care with us. Patient previously seeingDr. Valencia as her pipeline dispatch operator, however, now lives in a senior care, therefore, would like to establish care with a pipeline dispatch operator closer to home. From review of her prior cardiology records, patient has a history of non-obstructive coronary artery disease with cardiac cath in 2010 showing intermediate coronary artery disease with physiologic lesion assessment of the LAD showing an insignificant stenosis. Patient has atrial fibrillation dating back to 2016. Also has a history of TIAs for which she was on Plavix therapy for in the past. Last echocardiogram I see from 09/30/2020 reports LVEF 65-70% without significant abnormalities. MPI 10/13/2020 was negative for ischemia or infarction. 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 She also has a diagnosis of chronic diastolic heart failure listed on her prior records. Office Visit 12/06/2022: Patient presents to establish care as noted above. Her prior records that were sent to us was personally reviewed. Patient is accompanied by her daughter at today's visit. Patient has overall been stable from a heart standpoint. No chest pain, shortness of breath, palpitations. Has mild lower extremity swelling which has been stable. Patient does have a chronic suprapubic urinary catheter. Her current cardiac medication list is: Eliquis 5mg BID Flecainide 50mg BID Lasix 40mg every day Rosuvastatin 10mg Spironolactone 25mg Office Visit 05/23/2022: Since last visit, she had COVID at the beginning of April. Was at [facility] end of April for a UTI. She is feeling well now and has no cardiac issues or symptoms. Office visit with MATH AND SCIENCE INSTRUCTOR 03/04/2024: She returns for routine follow-up accompanied by her daughter brought in from [facility]. Neither of them have any cardiac concerns. The patient was hospitalizedback in October for acute respiratory failure, had a biopsy of the thyroid showing multinodular goiter. She is wheelchair-bound due to neuromuscular condition. Medical History: Past Medical History: Diagnosis Date A-fib (CMS/HCC) (HCC) Anemia Anemia Anxiety Asthma Asthma Atrial fibrillation (CMS/HCC) (HCC) Chronic coronary artery disease Coronary artery disease Diabetes mellitus (HCC) Familial spastic paraplegia (CMS/HCC) ([facility]) Glaucoma Glaucoma Glaucoma Heart disease Herpes zoster Herpes zoster HX OTHER MEDICAL Transient ischemic attack (TIA) HX OTHER MEDICAL Fx Sacrum 2000 HX OTHER MEDICAL Lymphatic edema HX OTHER MEDICAL Spinal Cerebellum Degeneration HX OTHER MEDICAL URI/GERD; Outcome: improved HX OTHER MEDICAL TIA Hyperlipidemia Hyperlipidemia Hypertension Hypertension Lymphatic edema Neuromuscular disorder (HCC) Osteoarthritis Osteoarthritis Pneumonia Sleep apnea Past Surgical History: Procedure Laterality Date BREAST SURGERY left breast lumpectomy CHOLECYSTECTOMY 1997 Cholecystectomy COLON SURGERY 2022 HERNIA REPAIR HYSTERECTOMY 1986 Hysterectomy OTHER SURGICAL HISTORY Ulcer removal from vocal cord OTHER SURGICAL HISTORY Fx nose surgery OTHER SURGICAL HISTORY 2003 Right Arthroscopy knee OTHER SURGICAL HISTORY 2009 Ventral hernia repair with prolene mesh 01/26 OTHER SURGICAL HISTORY 2013 URI/GERD: Medical Management OTHER SURGICAL HISTORY ulcer removed from vocal cord TOTAL ABDOMINAL HYSTERECTOMY W/ BILATERAL SALPINGOOPHORECTOMY 1980 Hysterectomy, total abdominal, BSO Social History Tobacco Use Smoking Status Never Smokeless Tobacco Never Social History Tobacco Use Smoking status: Never Smokeless tobacco: Never Substance and Sexual Activity Drug use: No Sexual activity: Not Currently Partners: Male control/protection: Post-menopausal Alcohol Use: Not At Risk (05/22/2022) Received from [facility] [employer], [facility] [employer] Frequency of Alcohol Consumption: Never Average Number of Drinks: Patient does not drink Frequency of Binge Drinking: Never Family History Problem Relation Age of Onset Breast cancer Mother Cancer, breast; /Cancer -breast; Cancer Mother Heart failure Father Congestive heart failure; Hypertension Brother Hypertension; Hypertension Brother Hypertension; Alzheimer's disease Maternal Grandmother Review of Systems Constitutional: Negative for malaise/fatigue, weight gain and weight loss. Cardiovascular: Negative for chest pain, dyspnea on exertion, leg swelling, near-syncope, orthopnea, palpitations, paroxysmal nocturnal dyspnea and syncope. Respiratory: Negative for cough, shortness of breath and sleep disturbances due to breathing. Hematologic/Lymphatic: Negative for bleeding problem. Does not bruise/bleed easily. Vital Signs: BP 122/72 (BP Location: Left arm, Patient Position: Sitting) Pulse 86 Ht 165.1 cm (5' 5 ) Wt 79.4 kg (175 lb) SpO2 93% BMI 29.12 kg/m?? Physical Exam Constitutional: General: She is not in acute distress. Appearance: She is well-developed. HENT: Head: Normocephalic and atraumatic. Eyes: General: No scleral icterus. Conjunctiva/sclera: Conjunctivae normal. Neck: Vascular: No JVD. Trachea: No tracheal deviation. Cardiovascular: Rate and Rhythm: Normal rate and regular rhythm. Heart sounds: Murmur heard. Systolic murmur is present with a grade of 3/6 at the upper right sternal border radiating to the apex. Pulmonary: Effort: Pulmonary effort is normal. No respiratory distress. Breath sounds: Normal breath sounds. Skin: General: Skin is warm and dry. Neurological: Mental Status: She is alert and oriented to person, place, and time. Psychiatric: Mood and Affect: Mood normal. Behavior: Behavior normal. Allergies Allergen Reactions Donepezil Other (See comments) Reaction: unknown reaction, , , Reaction: yeast infection, Black Pepper Diltiazem Edema, Diarrhea and Other (See comments) Reaction: edema, , Reaction: diarrhea, , , Reaction: ankles swell, Fluticasone Other (See comments) Reaction: colon problems, Metformin Diarrhea Reaction: diarrhea, , Salmeterol Other (See comments) Reaction: colon problems, Current Outpatient Medications: acetaminophen 500 mg capsule, Take 2 capsules (1,000 mg total) by mouth every 6 (six) hours as needed for mild pain (pain scale 1-4), Disp: , Rfl: acetic acid 2 % otic solution, 5 drops 3 (three) times a day, Disp: , Rfl: albuterol HFA (PROVENTIL HFA,VENTOLIN HFA,PROAIR HFA) 90 mcg/actuation inhaler, Inhale 2 puffs every 6 (six) hours as needed for wheezing, Disp: , Rfl: apixaban (ELIQUIS) 5 mg tablet, Take 1 tablet (5 mg total) by mouth 2 (two) times a day, Disp: 60 tablet, Rfl: 11 arginine-vitamin C-vitamin E 4.5 gram-156 mg/9.2 gram powder in packet, Take by mouth, Disp: , Rfl: bromfenac 0.07 % drops, Administer 1 drop into affected eye(s) 2 (two) times a day, Disp: , Rfl: cranberry fruit (cranberry) 450 mg tablet, Take by mouth, Disp: , Rfl: dorzolamide (TRUSOPT) 2 % ophthalmic solution, Administer 1 drop into both eyes 2 (two) times a day, Disp: , Rfl: escitalopram (LEXAPRO) 10 mg tablet, Take 1 tablet (10 mg total) by mouth daily, Disp: , Rfl: ferrous sulfate 325 mg (65 mg of elemental iron) tablet, Take 1 tablet (65 mg of elemental iron total) by mouth 3 (three) times a day with meals, Disp: , Rfl: flecainide (TAMBOCOR) 50 mg tablet, TAKE 1 TABLET TWICE A DAY, Disp: 180 tablet, Rfl: 3 furosemide (LASIX) 40 mg tablet, Take 1 tablet (40 mg total) by mouth daily, Disp: 90 tablet, Rfl: 3 HumaLOG 100 unit/mL pen for injection, , Disp: , Rfl: hyoscyamine (LEVSIN) 0.125 mg tablet, TAKE 2 TABLETS BY MOUTH FOUR TIMES DAILY NEEDED, Disp: , Rfl: insulin aspart prot/insuln asp (NOVOLOG MIX 70-30FLEXPEN U-100 SUBQ), Inject under the skin, Disp: , Rfl: insulin glargine (LANTUS, BASAGLAR, SEMGLEE) 100 unit/mL (3 mL) pen for injection, Inject 10 Units under the skin every morning, Disp: , Rfl: ketoconazole (NIZORAL) 2 % cream, , Disp: , Rfl: levothyroxine (SYNTHROID) 150 mcg tablet, Take 1 tablet (150 mcg total) by mouth early breastfeeding care specialist before breakfast, Disp: , Rfl: levothyroxine (SYNTHROID) 75 mcg tablet, Take 1 tablet (75 mcg total) by mouth early breastfeeding care specialist beforebreakfast Once a day MON thru SAT, Disp: , Rfl: melatonin 5 mg tablet, , Disp: , Rfl: nitroglycerin (NITROSTAT) 0.4 mg SL tablet, Place 1 tablet (0.4 mg total) under the tongue every 5 (five) minutes as needed for chest pain, Disp: , Rfl: nystatin cream, , Disp: , Rfl: pantoprazole DR (PROTONIX) 40 mg EC tablet, , Disp: , Rfl: rosuvastatin (CRESTOR) 10 mg tablet, Take 1 tablet (10 mg total) by mouth nightly, Disp: 90 tablet,Rfl: 3 Saccharomyces boulardii (FLORASTOR) 250 mg capsule, Take 1 capsule (250 mg total) by mouth 2 (two) times a day, Disp: , Rfl: anastrozole (ARIMIDEX) 1 mg tablet, Take 1 tablet (1 mg total) by mouth daily (Patient not taking: Reported on 03/04/2024), Disp: , Rfl: busPIRone (BUSPAR) 5 mg tablet, , Disp: , Rfl: clobetasoL (TEMOVATE) 0.05 % cream, , Disp: , Rfl: hydrOXYzine (ATARAX) 25 mg tablet, , Disp: , Rfl: lactulose solution 10 gram/15mL, , Disp: , Rfl: mupirocin (BACTROBAN) 2 % ointment, Apply topically 3 (three) times a day (Patient not taking: Reported on 03/04/2024), Disp: , Rfl: Myrbetriq 50 mg tablet extended release 24 hr, , Disp: , Rfl: polycarbophil (FIBERCON) 625 mg tablet, Take 1 tablet (625 mg total) by mouth 3 (three) times a day(Patient not taking: Reported on 03/04/2024), Disp: , Rfl: potassium chloride ER (KLOR-CON) 20 mEq CR tablet, Take 1 tablet (20 mEq total) by mouth 4 (four) times a day (Patient not taking: Reported on 03/04/2024), Disp: , Rfl: spironolactone (ALDACTONE) 25 mg tablet, Take 1 tablet (25 mg total) by mouth daily One tablet by mouth every morning. (Patient not taking: Reported on 03/04/2024), Disp: 90 tablet, Rfl: 3 Lab Results Component Value Date POTASSIUM 3.6 07/28/2021 BUNSER 12 08/30/2022 CREATININE 0.45 (L) 08/30/2022 EGFR 54 06/14/2016 CHOL 112 08/18/2015 TRIG 175 (H) 08/18/2015 LDL 50 (L) 08/18/2015 HDL 27 (L) 08/18/2015 Lab Results Component Value Date WBC 12.2 (H) 08/30/2022 HGB 13.7 08/30/2022 HCT 45.2 08/30/2022 MCV 77.3 (L) 08/30/2022 No results found for this or any previous visit (from the past 4 hour(s)). No results found for: POCCHOL , POCHDL , POCTRIG , POCLDL , POCNONHDL , POCCHLPL Assessment: Diagnoses and all orders for this visit: Aortic valve stenosis, etiology of cardiac valve disease unspecified (Primary) Coronary artery disease involving [place] coronary artery of [place] heart without angina pectoris PAF (paroxysmal atrial fibrillation) ([facility]) ([facility]) Chronic anticoagulation Plan/Recommendations: Aortic stenosis was reassessed with a new echo last month. The aortic stenosis remains moderate. Continue to monitor. She has a history of nonobstructive coronary disease. She denies angina. Continue rosuvastatin. On exam today her rhythm is regular. She denies palpitations. Continue flecainide. She is on Eliquis for stroke risk reduction for AFib, as well as history of PE. I reviewed bleedingprecautions with her particularly seek emergency care for head injury. Continue Eliquis. Routine follow-up with Dr. Quintero in 6 months but reach out to us sooner with any cardiac concerns. Patient and daughter verbalized understanding. 03/04/2024 INGRIS Chen- Nurse Practitioner with [facility] Cardiology This note is dictated and transcribed using [employer] Direct Software. Lap Hand Tool variancesmay occur. Despite proofreading, typographical errors may occur. documented in this encounter Plan of Treatment Not on file documented as of this encounter Visit Diagnoses Diagnosis Aortic valve stenosis, etiology of cardiac valve disease unspecified- Primary Coronary artery disease involving [place] coronary artery of [place] heart without angina pectoris PAF (paroxysmal atrial fibrillation) (CMS/HCC) (HCC) Atrial fibrillation Chronic anticoagulation Encounter for long-term (current) use of anticoagulants documented in this encounter Discontinued Medications Medication Sig Discontinue Reason Start Date End Da te esomeprazole DR (NexIUM) 40 mg capsule Take 1 capsule (40 mg total) by mouth daily before breakfast Alternate therapy 03/04/2024 levothyroxine (SYNTHROID) 75 mcg tablet Take 1 tablet (75 mcg total) by mouth early breastfeeding care specialist before breakfast Duplicate order 12/28/2020 03/04/2024 documented as of this encounter Historical Medications * This list may reflect changes made after this encounter. albuterol HFA (PROVENTIL HFA,VENTOLIN HFA,PROAIR HFA) 90 mcg/actuation inhaler Inhale 2 puffs every 6 (six) hours as needed for wheezing Saccharomyces boulardii (FLORASTOR) 250 mg capsule Take 1 capsule (250 mg total) by mouth 2 (two) times a day levothyroxine (SYNTHROID) 75 mcg tablet Take 1 tablet (75 mcg total) by mouth early breastfeeding care specialist before breakfast Once a day MON thru SAT levothyroxine (SYNTHROID) 150 mcg tablet Take 1 tablet (150 mcg total) by mouth early breastfeeding care specialist before breakfast 02/13/2024 ferrous sulfate 325 mg (65 mg of elemental iron) tabletIndication s:Iron Deficiency Anemia Take 1 tablet (65 mg of elemental iron total) by mouth 3 (three) times a day with meals pantoprazole DR (PROTONIX) 40 mg EC tablet 02/25/2024 nystatin cream 02/17/2024 lactulose solution 10 gram/15mL 05/11/2022 HumaLOG 100 unit/mL pen for injection 03/02/2024 polycarbophil (FIBERCON) 625 mg tablet Take 1 tablet (625 mg total) by mouth 3 (three) times a day added in this encounter Care Teams It Program Manager Relationship Specialty Start Date End Date Elizabeth Car MD [address] [facility] [address] [place] [id number] PCP - General Family Medicine 12/06/22 Migue Herman MD Consulting Physician Urology 05/16/19 Sonny Palmer MD Surgeon General Surgery 05/16/19 documented as of this encounter
--- OUTSIDE RECORDS SUMMARY | 2024-05-26 12:57 | XMS_ITS | Referral Summary ---
Author Organization [facility] Address [address] [place] [address] Care Team Providers Care Lathe Set Up Person Name Role Phone Migue Herman MD Unavailable [phone] Sonny Palmer MD Unavailable [phone] Elizabeth Car MD Primary Care Provider Encounters Date Type Department Care Team Description 03/04/2024 2:30 PM CDT Office Visit [facility] Cardiology [address] [place] [address] Maria Dolores Kinsey NP Aortic valve stenosis, etiology of cardiac valve disease unspecified (Primary Dx); Coronary artery disease involving [place] coronary artery of [place] heart without angina pectoris; PAF (paroxysmal atrial fibrillation) (CMS/HCC) ([facility]); Chronic anticoagulation from Last 3 Months Allergies Active Allergy Reactions Criticality Noted Date Comments Black Pepper Diltiazem Edema,Diarrhea,Other (See comments) Reaction: edema, , Reaction: diarrhea, , , Reaction: ankles swell, Donepezil Other (See comments) High Reaction: unknown reaction, , , Reaction: yeast infection, Fluticasone Other (See comments) Reaction: colon problems, Metformin Diarrhea Reaction: diarrhea, , Salmeterol Other (See comments) Reaction: colon problems, Medications anastrozole (ARIMIDEX) 1 mg tabletIndicatio ns:prevention of breast cancer in high risk women Take 1 tablet (1 mg total) by mouth daily Active dorzolamide (TRUSOPT) 2 % ophthalmic solution Administer 1 drop into both eyes 2 (two) times a day Active bromfenac 0.07 % drops Administer 1 drop into affected eye(s) 2 (two) times a day Active insulin glargine (LANTUS, BASAGLAR, SEMGLEE) 100 unit/mL (3 mL) pen for injection Inject 10 Units under the skin every morning Active potassium chloride ER (KLOR-CON) 20 mEq CR tablet Take 1 tablet (20 mEq total) by mouth 4 (four) times a day Active flecainide (TAMBOCOR) 50 mg tablet TAKE 1 TABLET TWICE A DAY 180 tablet 3 2 Active apixaban (ELIQUIS) 5 mg tablet Take 1 tablet (5 mg total) by mouth 2 (two) times a day 60 tablet 11 2 Active furosemide (LASIX) 40 mg tablet Take 1 tablet (40 mg total) by mouth daily 90 tablet 3 2 Active rosuvastatin (CRESTOR) 10 mg tablet Take 1 tablet (10 mg total) by mouth nightly 90 tablet 3 2 Active spironolactone (ALDACTONE) 25 mg tablet Take 1 tablet (25 mg total) by mouth daily One tablet by mouth every morning. 90 tablet 3 2 Active Additional Information Patient not taking.Reported on 03/04/2024 busPIRone (BUSPAR) 5 mg tablet 3 Active cranberry fruit (cranberry) 450 mg tablet Take by mouth Active acetaminophen 500 mg capsule Take 2 capsules (1,000 mg total) by mouth every 6 (six) hours as needed for mild pain (pain scale 1-4) Active acetic acid 2 % otic solutionIndicat ions:Otitis Externa 5 drops 3 (three) times a day Active arginine-vitami n C-vitamin E 4.5 gram-156 mg/9.2 gram powder in packet Take by mouth Active escitalopram (LEXAPRO) 10 mg tablet Take 1 tablet (10 mg total) by mouth daily Active melatonin 5 mg tablet Active mupirocin (BACTROBAN) 2 % ointment Apply topically 3 (three) times a day Active nitroglycerin (NITROSTAT) 0.[address] 1 tablet (0.4 mg total) under the tongue every 5 (five) minutes as needed for chest pain Active insulin aspart prot/insuln asp (NOVOLOG MIX 70-30FLEXPEN U-100 SUBQ) Inject under the skin Active clobetasoL (TEMOVATE) 0.05 % cream 4 Active hydrOXYzine (ATARAX) 25 mg tablet 3 Active hyoscyamine (LEVSIN) 0.125 mg tablet TAKE 2 TABLETS BY MOUTH FOUR TIMES DAILY NEEDED 3 Active ketoconazole (NIZORAL) 2 % cream 4 Active Myrbetriq 50 mg tablet extended release 24 hr 3 Active polycarbophil (FIBERCON) 625 mg tablet Take 1 tablet (625 mg total) by mouth 3 (three) times a day Active HumaLOG 100 unit/mL pen for injection 4 Active lactulose solution 10 gram/15mL 2 Active nystatin cream [address] (PROTONIX) 40 mg EC tablet 4 Active ferrous sulfate 325 mg (65 mg of elemental iron) tabletIndicatio ns:Iron Deficiency Anemia Take 1 tablet (65 mg of elemental iron total) by mouth 3 (three) times a day with meals Active levothyroxine (SYNTHROID) 150 mcg tablet Take 1 tablet (150 mcg total) by mouth pegger dobby looms before breakfast 4 Active levothyroxine (SYNTHROID) 75 mcg tablet Take 1 tablet (75 mcg total) by mouth pegger dobby looms before breakfast Once a day MON thru SAT Active Saccharomyces boulardii (FLORASTOR) 250 mg capsule Take 1 capsule (250 mg total) by mouth 2 (two) times a day Active albuterol HFA (PROVENTIL HFA,VENTOLIN HFA,PROAIR HFA) 90 mcg/actuation inhaler Inhale 2 puffs every 6 (six) hours as needed for wheezing Active Active Problems Problem Noted Date Diagnosed Date Encounter for monitoring flecainide therapy 11/17 Hyperlipidemia 12/06/2022 Weight loss 03/05/2021 Iron deficiency anemia due to chronic blood loss 01/18/2021 Constipation by delayed colonic transit 12/26/19 21 Pain and swelling of left wrist 12/25/2020 Anxiety 12/24/2020 Hypophosphatemia 12/23/2020 Normocytic anemia 12/21/2020 Urinary tract infection asso ciated with indwelling urethral catheter ([facility]) 12/21/2020 Paroxysmal atrial fibrillation ([facility]) 021 History of pulmonary embolism 12/21/2020 Type 2 diabetes mellitus 12/21/2020 Chronic diastolic (congestive) heart failure 09/2020 Anxiety 12/21/2020 CAD (coronary artery disease) 12/21/2020 HTN (hypertension) 12/21/2020 Occult blood in stools 12/20/2020 Overview (12/22/2020): Added automatically from request for surgery [id number] Cystitis 05/14/2019 Chronic constipation 05/14/2019 Recurrent inguinal hernia 05/14/2019 Fall 03/19/2019 Hypokalemia 03/19/2019 Hypercalcemia 03/19/2019 Chronic diastolic congestive heart failure ([facility]) 10/03/2017 PAF (paroxysmal atrial fibrillation) ([facility]) 0 10/01/2017 Assessment & Plan (10/01/2017 5:41 AM CDT): Patient appears to be in sinus rhythm at this time. Will continue for rapid middle and flecainide. Continue to monitor. Breast cancer 10/01/2017 Assessment & Plan (10/01/2017 5:42 AM CDT): Patient was diagnosed in 08/2017. She was started on anastrozole. Possible side effects when asked resolved continued nausea and vomiting. Will continue with anastrozole. Weakness generalized 10/01/2017 Assessment & Plan (10/01/2017 5:42 AM CDT): Etiology is unclear but possibly related to hypokalemia. Patient is feeling much better at this time. Will continue to monitor. Nausea & vomiting 10/01/2017 Assessment & Plan (10/01/2017 5:42 AM CDT): Possible side effect from anastrozole. Will have p.r.n. Zofran. 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 Lymphedema of both lower extremities 10/01/2017 Assessment & Plan (10/01/2017 5:41 AM CDT): This is a chronic issue. Holding Lasix and metolazone secondary to hypokalemia. Patient states her legs look better than they normally are currently. DM (diabetes mellitus) 10/01/2017 Assessment & Plan (10/01/2017 5:40 AM CDT): Resume Lantus 6 units q.h.s.. Resume Januvia and Jardiance. Place patient on low-dose sliding scale. Continue to monitor. CATY on CPAP 10/01/2017 Assessment & Plan (10/01/2017 5:48 AM CDT): Will order CPAP q.h.s.. Patient states her setting is 11. Pure hypercholesterolemia 08/30/2015 Overview (08/24/2016): PURE HYPERCHOLESTEROLEM Assessment & Plan (10/01/2017 5:41 AM CDT): Continue Crestor Asthma 02/17/2013 Overview (08/22/2016): Asthma Hypokalemia 02/17/2013 Overview (08/24/2016): Hypokalemia Assessment & Plan (10/01/2017 5:40 AM CDT): Likely secondary to diuretic use. Patient is on Lasix and metolazone. Patient was given 60 mEq in total and repeat potassium was 3.5. Will give patient another 20 mEq and repeat potassium at 1400. Patient does have PVCs Chronic ischemic heart disease 11/06/2011 Overview (08/23/2016): CHR ISCHEMIC HRT DIS NOS Assessment & Plan (10/01/2017 5:44 AM CDT): Continue aspirin and Plavix. Continue statin. Patient states she had a negative stress test 6 months ago. Adiposity 11/06/2011 Overview (08/23/2016): OBESITY NOS Atherosclerosis of coronary artery bypass graft 07/02/2011 Overview (08/22/2016): [place] SY Peripheral edema Multiple falls Resolved Problems Problem Noted Date Diagnosed Date Resolved Date Hypokalemia 12/21/2020 12/26/2020 Immunizations Name Administration Dates Next Due Influenza, Split 03/01/2011,03/07/2010 Influenza, Trivalent, High D ose, Split, Preservative Free, Intramuscular 02/16/2016,03/10/2015,04/19/2014 Influenza, Trivalent, IM (MDV) 02/04/2013,2011,02/10/2012 Influenza, Unspecified 03/05/2019 Pneumococcal Conjugate PCV 13 02/16/2016 Pneumococcal Polysaccharide PPV23 12/04/2010, Td, adsorbed 11/21/2009,09/05/1995 Tdap 08/30/2015 Social History Tobacco Use Types Packs/Day Years [...] often do you attend chur ch or rastafari services? 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 Gender Identity Not on file Sexual Orientation Not on file Last Filed Vital Signs Vital Sign Reading Time Taken Comments Blood Pressure 122/72 03/04/2024 2:34 PM CDT Pulse 86 03/04/2024 2:34 PM CDT Temperature 36.4 ??C (97.6 ??F) 08/06/2021 11:37 AM C DT Respiratory Rate 18 08/06/2021 11:37 AM CDT Oxygen Saturation 93% 03/04/2024 2:34 PM CDT Inhaled Oxygen Concentration - - Weight 79.4 kg (175 lb) 03/04/2024 2:34 PM CDT Height 165.1 cm (5' 5 ) 03/04/2024 2:34 PM CDT Body Mass Index 29.12 03/04/2024 2:34 PM CDT Plan of Treatment Not on file Procedures Procedure Name Priority Date/Time Associated Diagnosis Comments EGFR Routine 08/30/2022 12:10 PM CDT PLASMA LIPID PANEL Routine 08/18/2015 5: 00 AM CDT from Last 3 Months or Most Recently Relevant to Health Maintenance Results * eGFR (08/30/2022 12:10 PM CDT) Pathologist [facility] eGFR 95 mL/min/1. 73 m2 [facility] Comment: Interpretive Data Reference Interval Normal ?>/= 90 mL/min/1.73m2 Mildly decreased* ? 60 - 89 mL/min/1.73m2 Mildly to moderately decreased ?45 - 59 mL/min/1.73m2 Moderately to severely decreased ??30 - 44 mL/min/1.73m2 Severely decreased ?15 - 29 mL/min/1.73m2 Kidney Failure ?< 15 ??mL/min/1.73m2 *Relative to young adult level Estimated glomerular filtration rate is determined by the 2020 CKD-EPI equation recommended by the National Kidney Foundation (A Unifying Approach to GFR Estimation: Recommendations of the NKF-ASK Task Force on Reassessing the Inclusion of Race in Diagnosing Kidney Disease, JASN 2020). The CKD-EPI equation should not be used for patients with unstable renal function and has not been validated in children and those over 70. Current interpretive data was last reviewed 2021. Blood 08/30/2022 12:1 0 PM CDT 08/30/2022 1:22 PM CDT us Elizabeth Car MD LAB BLOOD ORDERABLES Fi nal Result [facility] [id number] Department [place] [address] * (ABNORMAL) Plasma lipid panel (08/18/2015 5:00 AM CDT) Pathologist [facility] Cholesterol 112 100 - 200 mg/dl HISTORICAL RESULTS Triglycerides 175(H) 10 - 150 mg/dl HISTORICAL RESULTS HDL 27(L) 40 - 59 mg/dl HISTORICAL RESULTS LDL 50(L) 60 - 129 mg/dl HISTORICAL RESULTS Plasma 08/18/2015 5:00 AM CDT Narrative HISTORICAL RESULTS - 08/18/2015 6:29 AM CDT Test performed at [facility], [address] [place] [address], [facility], [id number]. 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 DIRECTIVE 04/06/2018 9:51 PM * Full Code (Latest Code Status on File) Date Activated Date Inactivated Comments 12/27/2020 3:15 PM 12/28/2020 7:34 PM * Full Code Date Activated Date Inactivated Comments 12/22/2020 10:10 AM 12/27/2020 3:15 PM * Full Code Date Activated Date Inactivated Comments 12/20/2020 11:38 PM 12/22/2020 10:10 AM * Full Code Date Activated Date Inactivated Comments 05/13/2019 9:13 PM 05/16/2019 5:42 PM * Full Code Date Activated Date Inactivated Comments 03/19/2019 1:59 PM 03/22/2019 10:28 PM Care Teams Lathe Set Up Person Relationship Specialty Start Date End Date Elizabeth Car MD [address] [place] [address] PCP - General Family Medicine 12/06/22 Migue Herman MD Consulting Physician Urology 05/16/19 Sonny Palmer MD Surgeon General Surgery 05/16/19
--- OUTSIDE RECORDS SUMMARY | 2024-05-26 12:57 | XMS_ITS | Encounter Summary ---
Author Organization [facility] Healthcare Address [address] [place] [address] Care Team Providers Care Machine Milker Name Role Phone Migue Herman MD Unavailable Sonny Palmer MD Unavailable [phone] Elizabeth Car MD Primary Care Provider Reason for Referral * Cardiology (Routine) - Closed Specialty Diagnoses / Procedures Referred By Alejandrina vale Referred To Contact Diagnoses Aortic valve stenosis, etiology of cardiac valve disease unspecified Procedures Transthoracic Echo (TTE) Complete W Doppler/CF Olaf Quintero MD [address] [place] [id number] Phone: tel: fax: [facility] Referral ID Status Reason Start Date Expiration Date Visits Re quested Visits Authorized [id number] Closed 05/23/2023 06/21/2024 1 1 [employer] Reason for Visit * Reason Comments Atrial Fibrillation Coronary Artery Disease Heart Failure 6 mo f/u Encounter Details Date Type Department Care Team (Late st Contact Info) Description 05/23/2023 9:45 AM [employer] Office Visit [facility] Cardiology [address] [address] [address] [place] [address] Olaf Quintero MD [address] [facility] [address] [place] [address] Aortic valve stenosis, etiology of cardiac valve disease unspecified (Primary Dx); PAF (paroxysmal atrial fibrillation) (CMS/HCC) (HCC); Coronary artery disease involving [place] coronary artery of [place] heart without angina pectoris; Chronic diastolic (congestive) heart failure (HCC) Social History Tobacco Use Types Packs/Day [...] often do you attend chur ch or pentecostalism services? Never 12/25/2020 Do you belong to any clubs o r organizations such as taoist groups, unions, fraternal or athletic groups, or [...] on file Legal Sex Female 6:56 PM [employer] Gender Identity Not on file Sexual Orientation Not on file documented as of this encounter Last Filed Vital Signs Vital Sign Reading Time Taken Comments Blood Pressure 114/58 05/23/2023 9:50 AM [employer] Pulse 68 05/23/2023 9:50 AM [employer] Temperature - - Respiratory Rate - - Oxygen Saturation 98% 05/23/2023 9:50 AM [employer] Inhaled Oxygen Concentration - - Weight 72.6 kg (160 lb) 05/23/2023 9:50 AM [employer] Height 165.1 cm (5' 5 ) 05/23/2023 9:50 AM [employer] Body Mass Index 26.63 05/23/2023 9:50 AM [employer] documented in this encounter Progress Notes * Olaf Quintero MD - 05/23/2023 9:45 AM CST Cardiology Clinic Note CHIEF COMPLAINT / Reason For Consult: Coronary artery disease, atrial fibrillation, establish care HISTORY: Loc Leon is a 82 y.o. female who presents to establish care with us. Patient previously seeing Dr. Valencia as her pattern assembler, however, now lives in a shelter, therefore, would liketo establish care with a pattern assembler closer to home. From review of her prior cardiology records, patient has a history of non-obstructive coronary artery disease with cardiac cath in 2010 showing intermediate coronary artery disease with physiologic lesion assessment of the LAD showing an insignificant stenosis. Patient has atrial fibrillation dating back to 2016. Also has a history of TIAs forwhich she was on Plavix therapy for in the past. Last echocardiogram I see from 09/30/2020 reports LVEF 65-70% without significant abnormalities. 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 She also has a diagnosis ofchronic diastolic heart failure listed on her prior [...] and has no cardiac issues or symptoms. 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[facility]) ([facility]) Glaucoma Glaucoma Glaucoma Heart disease Herpes zoster Herpes zoster HX OTHER MEDICAL Transient ischemic attack (TIA) HX OTHER MEDICAL Fx Sacrum 1999 HX OTHER MEDICAL Lymphatic edema HX OTHER MEDICAL Spinal Cerebellum Degeneration HX OTHER MEDICAL URI/GERD; Outcome: improved HX OTHER MEDICAL TIA Hyperlipidemia Hyperlipidemia Hypertension Hypertension Lymphatic edema Neuromuscular disorder ([facility]) Osteoarthritis Osteoarthritis Pneumonia Sleep apnea PAST SURGICAL HISTORY: Past Surgical History: Procedure Laterality Date BREAST SURGERY left breast lumpectomy CHOLECYSTECTOMY 1997 Cholecystectomy COLON SURGERY 2022 HERNIA REPAIR HYSTERECTOMY 1986 Hysterectomy OTHER SURGICAL HISTORY Ulcer removal from vocal cord OTHER SURGICAL HISTORY Fx nose surgery OTHER SURGICAL HISTORY 2004 Right Arthroscopy knee OTHER SURGICAL HISTORY 2009 Ventral hernia repair with prolene mesh 01/26 OTHER SURGICAL HISTORY 2013 URI/GERD: Medical Management OTHER SURGICAL HISTORY ulcer removed from vocal cord TOTAL ABDOMINAL HYSTERECTOMY W/ BILATERAL SALPINGOOPHORECTOMY 1980 Hysterectomy, total abdominal, BSO FAMILY HISTORY: Family History Problem Relation Age of Onset Breast cancer Mother Cancer, breast; /Cancer -breast; Cancer Mother Heart failure Father Congestive heart failure; Hypertension Brother Hypertension; Hypertension Brother Hypertension; Alzheimer's disease Maternal Grandmother SOCIAL HISTORY: Social History Tobacco Use Smoking status: Never Smokeless tobacco: Never Substance and Sexual Activity Drug use: No Sexual activity: Not Currently Partners: Male control/protection: Post-menopausal Alcohol Use: Not on file Allergies Allergen Reactions Donepezil Other (See comments) Reaction: unknown reaction, , , Reaction: yeast infection, Black Pepper Diltiazem Edema, Diarrhea and Other (See comments) Reaction: edema, , Reaction: diarrhea, , , Reaction: ankles swell, Fluticasone Other (See comments) Reaction: colon problems, Metformin Diarrhea Reaction: diarrhea, , Salmeterol Other (See comments) Reaction: colon problems, : Current Outpatient Medications Medication Sig Dispense Refill acetaminophen 500 mg capsule Take 2 capsules (1,000 mg total) by mouth every 6 (six) hours as needed for mild pain (pain scale 1-4) acetic acid 2 % otic solution 5 drops 3 (three) times a day anastrozole (ARIMIDEX) 1 mg tablet Take 1 tablet (1 mg total) by mouth daily apixaban (ELIQUIS) 5 mg tablet Take 1 tablet (5 mg total) by mouth 2 (two) times a day 60 tablet 11 arginine-vitamin C-vitamin E 4.5 gram-156 mg/9.2 gram powder in packet Take by mouth bromfenac 0.07 % drops Administer 1 drop into affected eye(s) 2 (two) times a day busPIRone (BUSPAR) 5 mg tablet clobetasoL (TEMOVATE) 0.05 % cream cranberry fruit (cranberry) 450 mg tablet Take by mouth dorzolamide (TRUSOPT) 2 % ophthalmic solution Administer 1 drop into both eyes 2 (two) times a day escitalopram (LEXAPRO) 10 mg tablet Take 1 tablet (10 mg total) by mouth daily esomeprazole DR (NexIUM) 40 mg capsule Take 1 capsule (40 mg total) by mouth daily before breakfast flecainide (TAMBOCOR) 50 mg tablet TAKE 1 TABLET TWICE A DAY 180 tablet 3 furosemide (LASIX) 40 mg tablet Take 1 tablet (40 mg total) by mouth daily 90 tablet 3 hydrOXYzine (ATARAX) 25 mg tablet hyoscyamine (LEVSIN) 0.125 mg tablet TAKE 2 TABLETS BY MOUTH FOUR TIMES DAILY NEEDED insulin aspart prot/insuln asp (NOVOLOG MIX 70-30FLEXPEN U-100 SUBQ) Inject under the skin insulin glargine (LANTUS, BASAGLAR, SEMGLEE) 100 unit/mL (3 mL) pen for injection Inject 10 Units under the skin every morning ketoconazole (NIZORAL) 2 % cream levothyroxine (SYNTHROID) 75 mcg tablet Take 1 tablet (75 mcg total) by mouth motor hotel manager before breakfast 30 tablet 0 melatonin 5 mg tablet mupirocin (BACTROBAN) 2 % ointment Apply topically 3 (three) times a day Myrbetriq 50 mg tablet extended release 24 hr nitroglycerin (NITROSTAT) 0.[address] 1 tablet (0.4 mg total) under the tongue every 5 (five) minutes as needed for chest pain potassium chloride ER (KLOR-CON) 20 mEq CR tablet Take 1 tablet (20 mEq total) by mouth 4 (four) times a day rosuvastatin (CRESTOR) 10 mg tablet Take 1 tablet (10 mg total) by mouth nightly 90 tablet 3 spironolactone (ALDACTONE) 25 mg tablet Take 1 tablet (25 mg total) by mouth daily One tablet by mouth every morning. 90 tablet 3 No current facility-administered medications for this visit. REVIEW OF SYSTEMS: GENERAL: As per HPI CVS: As per HPI PHYSICAL EXAMINATION: BP 114/58 (BP Location: Left arm, Patient Position: Sitting) Pulse 68 Ht 165.1 cm (5' 5 ) Wt 72.6 kg (160 lb) SpO2 98% BMI 26.63 kg/m?? Body mass index is 26.63 kg/m??. GENERAL: Alert, oriented to person, place, and time. Elderly female in a wheelchair. HEAD: Normocephalic EYES: Extra ocular movement intact ENT: Unremarkable NECK: Supple with midline trachea CHEST: Clear to auscultation CARDIAC: RRR, S1 S2 normal, no murmur, rub, heaves, thrills or gallops : Urinary catheter bag noted. SKIN: Warm and dry LABS: Lab Results Component Value Date WBC 12.2 (H) 08/30/2022 HGB 13.7 08/30/2022 HCT 45.2 08/30/2022 MCV 77.3 (L) 08/30/2022 No lab exists for component: LABALBU Lab Results Component Value Date CHOL 112 08/18/2015 CHOL 106 04/19/2014 CHOL 101 08/09/2013 Lab Results Component Value Date HDL 27 (L) 08/18/2015 HDL 35 (L) 04/19/2014 HDL 33 (L) 08/09/2013 No results found for: LDLCALC Lab Results Component Value Date TRIG 175 (H) 08/18/2015 TRIG 153 (H) 04/19/2014 TRIG 132 08/09/2013 No results found for: CHOLHDL EK12/06/2022: Sinus rhythm IMAGING RESULTS REVIEW: Transthoracic Echocardiogram 09/30/2020: LVEF 65-70% without significant abnormalities. MPI 10/13/2020: Negative for ischemia or infarction. ASSESSMENT/PLAN: Non-obstructive coronary artery disease. Cardiac cath in 2010 showing intermediate coronary artery disease with physiologic lesion assessment of the LAD showing an insignificant stenosis. MPI 09/2020 negative for ischemia or infarction. Patient is currently stable and doing well without any anginal symptoms. Chronic diastolic heart failure Continue oral daily Lasix, Spironolactone. Echocardiogram 01/2023 with LVEF 59% Paroxysmal atrial fibrillation Continue Flecainide, Eliquis. Hypertension Continue Lasix, Spironolactone Hyperlipidemia Continue statin History of pulmonary embolism s/p suction thrombectomy in September 2020 Aortic stenosis Echocardiogram 02/10/2023 with moderate . Will obtain repeat in 01/2024 for re-evaluation. Olaf Quintero M.D. Interventional Cardiology [employer] documented in this encounter Plan of Treatment Not on file documented as of this encounter Results * TRANSTHORACIC ECHO (TTE) COMPLETE W DOPPLER/CF WO CONTRAST (02/16/2024 11:21 AM CDT) Anatomical Region Laterality Modality Ultrasound 02/16/2024 10:4 5 AM CDT Narrative 02/16/2024 12:27 PM CDT [facility] Cardiology [address] [facility] [address], [place] [address] [address] [facility] [address], [place] [address] P:[phone] P:[phone] Echocardiographic Report Patient Name: LOC LEON : [birth year] Study Date: 02/16/2024 10:45:02 AM Gender: F Tech: Location: [place] Ref Provider: OLAF QUINTERO ?Height(Cm): 165 BSA: 1.82 Weight(Kg): 72.6 Heart Rate: 76 BP: 163 / 70 Quality: Good Order Provider: OLAF QUINTERO PROCEDURES: Echocardiographic Report: Transthoracic echocardiogram with complete 2D, M-Mode, and color Doppler examination. With Strain Analysis. INDICATIONS: I35.0 Nonrheumatic aortic (valve) stenosis. Measurements: 2D/M Mode ?Doppler Measurement ?Value ?Normal Range ?Measurement ?Value ?Normal Range LVIDd 2D ? 4.53 ? [ 3.80 - 5.20 ] cm ?STACIE Vmax ? 1.15 ? [ 2.00 - 4.00 ] cm2 LVIDs 2D ? 2.53 ? [ 2.20 - 3.50 ] cm ?AV Mean PG ? 29 ? mmHg LVPWd 2D ? 1.63 ? [ 0.60 - 0.90 ] cm ?AV Peak Javed ?3.50 ? [ 1.00 - 1.70 ] m/s IVSd 2D ?1.81 ? [ 0.60 - 0.90 ] cm ?AV Peak PG ? 49 ? mmHg LA Volume Index ?44 ? [ 16 - 34 ] cc/m2 ? AV VTI ? 73.35 ?cm LVOT Diam ?1.99 ?[ 1.70 - 2.10 ] cm LVOT Peak Javed ?1.29 ?[ 0.70 - 1.10 ] m/s LVOT VTI ? 27.72 ? cm MV E Peak Javed ?0.94 ?[ 0.60 - 1.30 ] m/s MV A Peak Javed ?1.70 ?[ 1.00 - 1.20 ] m/s MVA PHT ?1.41 ?[ 2.00 - 4.00 ] cm2 MV Decel Time ?332 ? [ 104 - 258 ] msec Lateral E` ? 0.04 ?[ 0.10 - 0.15 ] m/s E` ? 0.05 ?m/s E/E` ? 23 Measurement ?Value ?Normal Range ?Measurement ?Value ?Normal Range 2D/M Mode ?Doppler - FINDINGS: Interpretation Site: Exam was interpreted at [facility]. Left Ventricle: Normal left ventricular systolic function. No focal wall motion abnormalities. Normal left ventricular size. Severe concentric left ventricular hypertrophy. Impaired diastolic relaxation Grade I. Ejection fraction is measured at 66 %. Global Longitudinal Strain is -16 %. GLS is abnormal. Right Ventricle: Normal right ventricular size. Normal right ventricular systolic function. Left Atrium: There is mild enlargement of left atrium. Right Atrium: The right atrium is normal in size. Atrial Septum: Normal atrial septum. Mitral Valve: Moderate mitral annular calcification. No mitral valve regurgitation is seen. There is no hemodynamically significant mitral stenosis by Doppler. Aortic Valve: Moderate aortic stenosis. Mean gradient of 29.0 mmHg. Valve area of 1.15 cm2. Aortic cusps appear severely calcified. Mild aortic valve regurgitation. Tricuspid Valve: Normal appearance of the tricuspid valve. No evidence of tricuspid regurgitation. Pulmonic Valve: Normal appearance of the pulmonic valve. No evidence of pulmonic regurgitation. Pericardium: Normal pericardium with no significant pericardial effusion. Aorta: Sinus of Valsalva is normal. IVC: Normal size and normal respiratory collapse consistent with normal right atrial pressure (<5 mmHg). Pulmonary Artery: Normal pulmonary artery size. CONCLUSIONS: Normal left ventricular systolic function. No focal wall motion abnormalities. Normal left ventricular size. Severe concentric left ventricular hypertrophy. Impaired diastolic relaxation Grade I. Ejection fraction is measured at 66 %. Global Longitudinal Strain is -16 %. GLS is abnormal. There is mild enlargement of left atrium. Moderate aortic stenosis. Mean gradient of 29.0 mmHg. Valve area of 1.15 cm2. Aortic cusps appear severely calcified. Mild aortic valve regurgitation. Electronically Signed By: Dr. Yoshi Shah [facility] 2024-02-16 12:27:20 CDT Procedure Note Yoshi Shah MD - 02/16/2024 [facility] Cardiology [address], [place] [address] [address] [facility] [address], [place] [address] P:[phone] P:[phone] Echocardiographic Report Patient Name: LOC LEON : 1940 Study Date: 02/16/2024 10:45:02 AM Gender: F Tech: Location: [place] Ref Provider: OLAF QUINTERO Height(Cm): 165 BSA: 1.82 Weight(Kg): 72.6 Heart Rate: 76 BP: 163 / 70 Quality: Good Order Provider: OLAF QUINTERO PROCEDURES: Echocardiographic Report: Transthoracic echocardiogram with complete 2D, M-Mode, and color Dopplerexamination. With Strain Analysis. INDICATIONS: I35.0 Nonrheumatic aortic (valve) stenosis. Measurements: 2D/M ModeDoppler Measurement Value Normal Range MeasurementValue Normal Range LVIDd 2D 4.53 [ 3.80 - 5.20 ] cm STACIE Vmax1.15 [ 2.00 - 4.00 ] cm2 LVIDs 2D 2.53 [ 2.20 - 3.50 ] cm AV Mean PG29 mmHg LVPWd 2D 1.63 [ 0.60 - 0.90 ] cm AV Peak Vel3.50 [ 1.00 - 1.70 ] m/s IVSd 2D 1.81 [ 0.60 - 0.90 ] cm AV Peak PG49 mmHg LA Volume Index 44 [ 16 - 34 ] cc/m2 AV VTI73.35 cm LVOT Diam 1.99 [ 1.70 - 2.10 ] cm LVOT Peak Javed 1.29 [ 0.70 - 1.10 ] m/s LVOT VTI 27.72 cm MV E Peak Javed 0.94 [ 0.60 - 1.30 ] m/s MV A Peak Javed 1.70 [ 1.00 - 1.20 ] m/s MVA PHT 1.41 [ 2.00 - 4.00 ] cm2 MV Decel Time 332 [ 104 - 258 ] msec Lateral E` 0.04 [ 0.10 - 0.15 ] m/s E` 0.05 m/s E/E` 23 Measurement Value Normal Range MeasurementValue Normal Range 2D/M ModeDoppler - FINDINGS: Interpretation Site: Exam was interpreted at [facility]. Left Ventricle: Normal left ventricular systolic function. No focal wall motionabnormalities. Normal left ventricular size. Severe concentric left ventricular hypertrophy.Impaired diastolic relaxation Grade I. Ejection fraction is measured at 66 %. GlobalLongitudinal Strain is -16 %. GLS is abnormal. Right Ventricle: Normal right ventricular size. Normal right ventricular systolicfunction. Left Atrium: There is mild enlargement of left atrium. Right Atrium: The right atrium is normal in size. Atrial Septum: Normal atrial septum. Mitral Valve: Moderate mitral annular calcification. No mitral valve regurgitation isseen. There is no hemodynamically significant mitral stenosis by Doppler. Aortic Valve: Moderate aortic stenosis. Mean gradient of 29.0 mmHg. Valve area of 1.15cm2. Aortic cusps appear severely calcified. Mild aortic valve regurgitation. Tricuspid Valve: Normal appearance of the tricuspid valve. No evidence of tricuspidregurgitation. Pulmonic Valve: Normal appearance of the pulmonic valve. No evidence of pulmonicregurgitation. Pericardium: Normal pericardium with no significant pericardial effusion. Aorta: Sinus of Valsalva is normal. IVC: Normal size and normal respiratory collapse consistent with normal rightatrial pressure (<5 mmHg). Pulmonary Artery: Normal pulmonary artery size. CONCLUSIONS: Normal left ventricular systolic function. No focal wall motionabnormalities. Normal left ventricular size. Severe concentric left ventricular hypertrophy.Impaired diastolic relaxation Grade I. Ejection fraction is measured at 66 %. GlobalLongitudinal Strain is -16 %. GLS is abnormal. There is mild enlargement of left atrium. Moderate aortic stenosis. Mean gradient of 29.0 mmHg. Valve area of 1.15cm2. Aortic cusps appear severely calcified. Mild aortic valve regurgitation. Electronically Signed By: Dr. Yoshi Shah [facility] 2024-02-16 12:27:20 CDT [facility] Tahmina Quintero MD CV ECHO PROCEDURES Bárbara l Result documented in this encounter Visit Diagnoses Diagnosis Aortic valve stenosis, etiology of cardiac valve disease unspecified- Primary PAF (paroxysmal atrial fibrillation) (CMS/HCC) (HCC) Atrial fibrillation Coronary artery disease involving [place] coronary artery of [place] heart without angina pectoris Chronic diastolic (congestive) heart failure ([facility]) Aortic valve stenosis, etiology of cardiac valve disease unspecified documented in this encounter Discontinued Medications Medication Sig Discontinue Reason Start Date End Da te oxyBUTYnin (DITROPAN) 1 mg/mL syrup Take by mouth 2 (two) times a day Alternate therapy 05/23/2023 SITagliptin (JANUVIA) 100 mg tablet Take 1 tablet (100 mg total) by mouth daily Therapy completed 05/23/2023 documented as of this encounter Historical Medications * This list may reflect changes made after this encounter. Myrbetriq 50 mg tablet extended release 24 hr 05/06/2023 ketoconazole (NIZORAL) 2 % cream 05/21/2023 hyoscyamine (LEVSIN) 0.125 mg tablet TAKE 2 TABLETS BY MOUTH FOUR TIMES DAILY NEEDED 04/19/2023 hydrOXYzine (ATARAX) 25 mg tablet 05/15/2023 clobetasoL (TEMOVATE) 0.05 % cream 05/21/2023 added in this encounter Care Teams Machine Milker Relationship Specialty Start Date End Date Elizabeth Car MD [address] [facility] [address] [place] [address] PCP - General Family Medicine 12/06/22 Migue Herman MD Consulting Physician Urology 05/16/19 Sonny Palmer MD Surgeon General Surgery 05/16/19 documented as of this encounter
--- OUTSIDE RECORDS SUMMARY | 2024-05-26 12:57 | XMS_ITS | Clinical Summary ---
Author Organization [facility] Address [address] [place] [address] Care Team Providers Care Sdc Teacher Name Role Phone Migue Herman MD Unavailable [phone] Sonny Palmer MD Unavailable [phone] Elizabeth Car MD Primary Care Provider Allergies Active Allergy Reactions Criticality Noted Date [...] 1 tablet (150 mcg total) by mouth ibm bpm developer before breakfast 4 Active levothyroxine (SYNTHROID) 75 mcg tablet Take 1 tablet (75 mcg total) by mouth ibm bpm developer before breakfast Once a day MON thru [...] infection asso ciated with indwelling urethral catheter (CMS/HCC) 12/21/2020 Paroxysmal atrial fibrillation (CMS/HCC) 021 History of pulmonary embolism 12/21/2020 Type 2 diabetes mellitus 12/21/2020 Chronic diastolic (congestive) heart failure 09/2020 Anxiety 12/21/2020 CAD (coronary artery disease) 12/21/2020 HTN (hypertension) 12/21/2020 Occult blood in stools 12/20/2020 Overview (12/22/2020): Added automatically from request for surgery [id number] Cystitis 05/14/2019 Chronic constipation 05/14/2019 Recurrent inguinal hernia 05/14/2019 Fall 03/19/2019 Hypokalemia 03/19/2019 Hypercalcemia 03/19/2019 Chronic diastolic congestive heart failure (CMS/ HCC) 10/03/2017 PAF (paroxysmal atrial fibrillation) ([facility]) 0 10/01/2017 Assessment & Plan (10/01/2017 5:41 [...] 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 Lymphedema of both lower extremities 10/01/2017 Assessment [...] coronary artery bypass graft 07/02/2011 Overview (08/22/2016): COR ATH ARTRY BYPAS GRFT Peripheral edema Multiple falls Resolved Problems Problem Noted Date Diagnosed Date Resolved Date Hypokalemia 12/21/2020 12/26/2020 Encounters Date Type Department Care Team Description 03/04/2024 2:30 PM CDT Office Visit [facility] Cardiology [address] [place] [address] Maria Dolores Kinsey, LOTTIE Aortic valve stenosis, etiology of cardiac valve disease unspecified (Primary Dx); Coronary artery disease involving cocopah coronary artery of cocopah heart without angina pectoris; PAF (paroxysmal atrial fibrillation) (CMS/HCC) (HCC); Chronic anticoagulation from Last 3 Months Immunizations Name Administration Dates Next Due Influenza, Split 03/01/2011,03/07/2010 Influenza, Trivalent, High D ose, Split, Preservative Free, Intramuscular 02/16/2016,03/10/2015,04/19/2014 Influenza, Trivalent, IM (MDV) 02/04/2013,2011,02/10/2012 Influenza, Unspecified 03/05/2019 Pneumococcal Conjugate PCV 13 02/16/2016 Pneumococcal Polysaccharide PPV23 12/04/2010, Td, adsorbed 11/21/2009,09/05/1995 Tdap 08/30/2015 Surgical History Surgery Date Site/Laterality Comments CHOLECYSTECTOMY 05/19/1997 - 05/18/1998 Cholecystectomy HYSTERECTOMY 05/19/1985 - 05/18/1986 Hysterectomy OTHER SURGICAL HISTORY Ulcer removal from vocal cord OTHER SURGICAL HISTORY Fx nose surgery OTHER SURGICAL HISTORY 05/19/2003 - 05/18/2004 Right Arthroscopy knee OTHER SURGICAL HISTORY 05/19/2009 - 05/18/2010 Ventral hernia repair with prolene mesh 01/26 TOTAL ABDOMINAL HYSTERECTOMY W/ BILATERAL SALPINGOOPHORECTOMY 05/19/1980 - 05/18/1981 Hysterectomy, total abdominal, BSO OTHER SURGICAL HISTORY 05/19/2012 - 05/18/2013 URI/GERD: Medical Management HERNIA REPAIR OTHER SURGICAL HISTORY ulcer removed from vocal cord BREAST SURGERY left breast lumpectomy COLON SURGERY 2022 Medical History Medical History Date Comments Asthma Asthma Hypertension Hypertension Hx Other Medical Transient ische mustapha attack (TIA) Glaucoma Glaucoma Anemia Anemia Hx Other Medical Fx Sacrum 2000 Hx Other Medical Lymphatic edema Hyperlipidemia Hyperlipidemia Osteoarthritis Osteoarthritis Hx Other Medical Spinal Cerebell um Degeneration Herpes zoster Herpes zoster Chronic coronary artery disease Coronary artery disease Hx Other Medical URI/GERD; Outco me: improved Hx Other Medical TIA Diabetes mellitus (HCC) Atrial fibrillation (CMS/HCC) (HCC) Pneumonia Glaucoma Familial spastic paraplegia (CMS/HCC) (HCC) Sleep apnea Lymphatic edema A-fib (CMS/HCC) (HCC) Anxiety Heart disease Neuromuscular disorder (HCC) Family History Medical History Relation Name Comments Hypertension Brother 2 Ray Hypertension; Hypertension Brother 3 Tj Hypertension; Heart failure Father Congestive hea rt failure; Alzheimer's disease Maternal Grandmother Danuta Breast cancer Mother Smiley Cancer, breast ; /Cancer -breast; Cancer Mother Smiley Relation Name Status Comments Brother 1 Alive Brother 2 Ray Brother 3 Tj Father Alive Maternal Grandmother Danuta Mother Smiley Alive Social History Tobacco Use Types Packs/Day Years [...] often do you attend chur ch or church services? 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 Gender Identity Not on file Sexual Orientation Not on file Obstetrics History Last Filed Vital Signs Vital Sign Reading [...] 03/04/2024 2:34 PM CDT Plan of Treatment Health Maintenance Due Date Last Done Comments Albumin Creatinine Ratio, Urine 1938 Hemoglobin A1C 1938 Dilated Eye Exam 1938 Foot Exam 1938 Hepatitis B Screening 1956 Well Visit 65+ 12/01/2003 Zoster Vaccine (1 of 2) 10/19/2007 08/24/2007 Depression Screening 05/13/2020 05/13/2019, 03/19/2019, 03/05/2019 Covid-19 Vaccine (3 - Pfizer risk series) 08/04/2020 07/07/2020, 06/13/2020 Lipid Panel 11/25/2020 11/26/2019, 04/0 05/2015, 04/19/2014, Additional history exists Fall Risk Assessment 02/16/2022 02/16/2021, 02/09/2021, 12/27/2020 Osteoporosis Screening-Bone Density Scan 06/06/2022 06/06/2020, 06/06/2020, 10/29/2017, Additional history exists eGFR 08/31/2023 08/30/2022, 07/17, 03/12/2021, Additional history exists Influenza Vaccine (#1) 2024 , 03/05/2019, 03/31/2018, Additional history exists DTaP/Tdap/Td Vaccine (2 - Td or Tdap) 08/29/2025 08/30/2015, 11/21/2009, 09/05/1995 Pneumococcal vaccine 65+ Completed 016, 12/04/2010, 11/29/2005 Procedures Procedure Name Priority Date/Time Associated Diagnosis Comments EGFR Routine 08/30/2022 12:10 PM CDT PLASMA LIPID PANEL Routine 08/18/2015 5: 00 AM CDT from Last 3 Months or Most Recently Relevant to Health Maintenance Results * eGFR (08/30/2022 12:10 PM CDT) eGFR 95 mL/min/1. 73 m2 MADDI GRACIA [...] 0 PM CDT 08/30/2022 1:22 PM CDT Elizabeth Car MD LAB BLOOD ORDERABLES Fi nal Result [facility] [address] [address] Department [place] [address] * (ABNORMAL) Plasma lipid panel (08/18/2015 5:00 AM CDT) [facility] Cholesterol 112 100 - 200 mg/dl HISTORICAL RESULTS Triglycerides 175(H) 10 - 150 mg/dl HISTORICAL RESULTS HDL 27(L) 40 - 59 mg/dl HISTORICAL RESULTS LDL 50(L) 60 - 129 mg/dl HISTORICAL RESULTS Plasma 08/18/2015 5:00 AM CDT Narrative HISTORICAL RESULTS - 08/18/2015 6:29 AM CDT Test performed at [facility], [address] [place] [address], [facility]. Historical Provider LAB BLOOD ORDERABLES Bárbara l Result Performing Organization Address City/[facility] Co de Phone Number HISTORICAL RESULTS from Last 3 Months or Most Recently Relevant to Health Maintenance Insurance MEDICARE IDPA MEDICARE [facility] Address: [address] [address] [place] [address] COMMERCIAL GENERIC MEDICARE COMMERCIAL GENERIC ATTN: ALFREDO MASTERS [id number] [facility] MEDICARE MEDICARE Advance Directives For more information, please contact: [phone] Documents on File Type Date Recorded Patient Balance And 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
--- OUTSIDE RECORDS SUMMARY | 2024-05-26 12:57 | XMS_ITS ---
Author Organization [facility] Address [address] [place] [address] Care Team Providers Care Line Maintenance Technician Name Role Phone Migue Herman MD Unavailable [phone] Sonny Palmer MD Unavailable [phone] Elizabeth Car MD Primary Care Provider Active Problems Problem Noted Date Diagnosed Date Encounter for monitoring flecainide therapy 11/17 Hyperlipidemia 12/06/2022 Weight loss 03/05/2021 Iron deficiency anemia due to chronic blood loss 01/18/2021 Constipation by delayed colonic transit 12/26/19 21 Pain and swelling of left wrist 12/25/2020 Anxiety 12/24/2020 Hypophosphatemia 12/23/2020 Normocytic anemia 12/21/2020 Urinary tract infection asso ciated with indwelling urethral catheter ([facility]/HCC) 12/21/2020 Paroxysmal atrial fibrillation (CMS/HCC) 021 History of pulmonary embolism 12/21/2020 Type 2 diabetes mellitus 12/21/2020 Chronic diastolic (congestive) heart failure 09/2020 Anxiety 12/21/2020 CAD (coronary artery disease) 12/21/2020 HTN (hypertension) 12/21/2020 Occult blood in stools 12/20/2020 Overview (12/22/2020): Added automatically from request for surgery [id number] Cystitis 05/14/2019 Chronic constipation 05/14/2019 Recurrent inguinal hernia 05/14/2019 Fall 03/19/2019 Hypokalemia 03/19/2019 Hypercalcemia 03/19/2019 Chronic diastolic congestive heart failure (CMS/ HCC) 10/03/2017 PAF (paroxysmal atrial fibrillation) (CMS/HCC) 0 10/01/2017 Assessment & Plan (10/01/2017 5:41 [...] 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 Lymphedema of both lower extremities 10/01/2017 [...] ARTRY BYPAS GRFT Peripheral edema Multiple falls Current Oncology Plans No current plan information found. Past Plans Radiation Treatments * No radiation treatments are documented for this patient in [facility]. Treatments may have been administered in another system. Resolved Problems Problem Noted Date Diagnosed Date Resolved Date Hypokalemia 12/21/2020 12/26/2020
--- OUTSIDE RECORDS SUMMARY | 2024-05-26 12:57 | XMS_ITS | Encounter Summary ---
Author Organization [facility] Healthcare Address [address] [place] [address] Care Team Providers Care Refrigeration Installer Name Role Phone Migue Herman MD Unavailable [phone] Sonny Palmer MD Unavailable [phone] Elizabeth Car MD Primary Care Provider Reason for Referral * Cardiology (Routine) - Closed Specialty Diagnoses / Procedures Referred By Contac t Referred To Contact Procedures ECG 12 lead Desiree Walker MD [address] [place] [address] Phone: tel: Referral ID Status Reason Start Date Expiration Date Visits Re quested Visits Authorized [id number] Closed 05/23/2023 06/21/2024 1 1 T PROTECTION MANAGER Encounter Details Date Type Department Care Team (Late st Contact Info) Description 05/23/2023 Orders Only [facility] Medical Group Cardiology [address] [place] [address] Desiree Walker MD [address] [place] [address] Social History Tobacco Use Types Packs/Day Years [...] often do you attend chur ch or adventist services? Never 12/25/2020 Do you belong to any clubs o r organizations such as yarsani groups, unions, fraternal or athletic groups, or [...] on file Legal Sex Female 6:56 PM ASSET PROTECTION MANAGER Gender Identity Not on file Sexual Orientation Not on file documented as of this encounter Plan of Treatment Not on file documented as of this encounter Procedures Procedure Name Priority Date/Time Associated Diagnosis Comments ECG 12-LEAD Routine 05/11/2023 10:42 AM ASSET PROTECTION MANAGER documented in this encounter Results * ECG 12 lead (05/11/2023 10:42 AM ASSET PROTECTION MANAGER) us Historical Provider ECG ORDERABLES Edited Re sult - Final documented in this encounter Visit Diagnoses Not on filedocumented in this encounter Care Teams Refrigeration Installer Relationship Specialty Start Date End Date Elizabeth Car MD [address] [place] [address] PCP - General Family Medicine 12/06/22 Migue Herman MD Consulting Physician Urology 05/16/19 Sonny Palmer MD Surgeon General Surgery 05/16/19 documented as of this encounter
--- OUTSIDE RECORDS SUMMARY | 2024-05-26 12:57 | XMS_ITS | Encounter Summary ---
Author Organization [facility] Healthcare Address [address] [place] [address] Care Team Providers Care Brush Operator Name Role Phone Migue Herman MD Unavailable [phone] Sonny Palmer MD Unavailable [phone] Elizabeth Car MD Primary Care Provider Reason for Visit * Cardiology (Routine) - Closed Specialty Diagnoses / Procedures Referred By Alejandrina vale Referred To Contact Diagnoses Aortic valve stenosis, etiology of cardiac valve disease unspecified Procedures Transthoracic Echo (TTE) Complete W Doppler/CF Olaf Quintero MD [address] [address] Phone: tel: fax: [facility] Medical Group Referral ID Status Reason Start Date Expiration Date Visits Re quested Visits Authorized [id number] Closed 05/23/2023 06/21/2024 1 1 Encounter Details Date Type Department Care Team (Latest Contact Info) Description 02/16/2024 10:15 AM CDT Ancillary Procedure [facility] Medical Group Cardiology [address] [place] [address] Aortic valve stenosis, etiology of cardiac valve disease unspecified Social History Tobacco Use Types Packs/Day [...] often do you attend chur ch or worship services? Never 12/25/2020 Do you belong to any clubs o r organizations such as restoration groups, unions, fraternal or athletic groups, or [...] medical appointments or from getting medications? No 080 01/2021 In the past 12 months, has l ack of transportation kept you from meetings, work, or from getting things needed for daily living? 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 Gender Identity Not on file Sexual Orientation Not on file documented as of this encounter Last Filed Vital Signs Vital Sign Reading Time Taken Comments Blood Pressure 163/70 02/16/2024 11:21 AM CDT Pulse - - Temperature - - Respiratory Rate - - Oxygen Saturation - - Inhaled Oxygen Concentration - - Weight - - Height - - Body Mass Index - - documented in this encounter Plan of Treatment Not on file documented as of this encounter Procedures Procedure Name Priority Date/Time Associated Diagnosis Comments TRANSTHORACIC ECHO (TTE) COMPLETE W DOPPLER/CF WO CONTRAST Routine 02/16/2024 11:21 AM CDT Aortic valve stenosis, etiology of cardiac valve disease unspecified documented in this encounter Results * TRANSTHORACIC ECHO (TTE) COMPLETE W DOPPLER/CF WO CONTRAST (02/16/2024 11:21 AM CDT) Anatomical Region Laterality Modality Ultrasound 02/16/2024 10:4 5 AM CDT Narrative 02/16/2024 12:27 PM CDT [facility] Medical [facility] Cardiology [address] [facility] [address], [place] [address] [address] [facility] [address], [place] [address] P:[phone] P:[phone] Echocardiographic Report Patient Name: LOC ANDERSON : [id number] Study Date: 02/16/2024 10:45:02 AM Gender: F Tech: Location: [facility] Provider: OLAF QUINTERO ?Height(Cm): 165 BSA: 1.82 [...] FINDINGS: Interpretation Site: Exam was interpreted at [facility]. Left Ventricle: Normal left ventricular systolic function. [...] regurgitation. Electronically Signed By: Dr. Yoshi Shah [facility] 2024-02-16 12:27:20 CDT Procedure Note Yoshi Shah MD - 02/16/2024 [facility] Medical [facility] Cardiology [address] [facility] [address], [place] [address] [address] [facility] [address], [place] [address] P:[phone] P:[phone] Echocardiographic Report Patient Name: LOC ANDERSON : 9 Study Date: 02/16/2024 10:45:02 AM Gender: F Tech: VIVIANE Location: [facility] Provider: OLAF QUINTERO Height(Cm): 165 BSA: 1.82 [...] FINDINGS: Interpretation Site: Exam was interpreted at [facility]. Left Ventricle: Normal left ventricular systolic function. [...] regurgitation. Electronically Signed By: Dr. Yoshi Shah [facility] 2024-02-16 12:27:20 CDT us [facility] Tahmina Quintero MD CV ECHO PROCEDURES Bárbara l Result documented in this encounter Visit Diagnoses Diagnosis Aortic valve stenosis, etiology of cardiac valve disease unspecified documented in this encounter Care Teams Brush Operator Relationship Specialty Start Date End Date Elizabeth Car MD [address] [facility] [address] [place] [address] PCP - General Family Medicine 12/06/22 Migue Herman MD Consulting Physician Urology 05/16/19 Sonny Palmer MD Surgeon General Surgery 05/16/19 documented as of this encounter
--- OUTSIDE RECORDS SUMMARY | 2024-05-26 12:58 | XMS_ITS | Encounter Summary ---
Author Organization [facility] Address [address] [place] [address] Care Team Providers Care Produce Laborer Name Role Phone Theresa Camargo MD Primary Care Provider [phone] Laz Valencia MD Unavailable [phone] Migue Herman MD Unavailable [phone] Sonny Palmer MD Unavailable [phone] Reason for Visit * Reason Comments Follow-up Pt has not tired the protein drinks yet because she has been eating smaller meals but half of the mormal. Her daughters have been cooking for them so it is more controlled. Two months ago she was 168 lb. Pt bm are once every three days (a big amount) but inbetween hard pellets. Encounter Details Date Type Department Care Team (Latest Contact Info) Description 03/05/2021 9:15 AM CDT Office Visit [facility] Gastroenterology at [address] [place] [address] Dick Simeon NP [address] [place] [address] Chronic constipation (Primary Dx); Iron deficiency anemia due to chronic blood loss; Weight loss Social History Tobacco Use Types Packs/Day [...] often do you attend chur ch or denominational services? 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 Gender Identity Not on file Sexual Orientation Not on file documented as of this encounter Last Filed Vital Signs Vital Sign Reading Time Taken Comments Blood Pressure 120/60 03/05/2021 9:29 AM CDT Pulse 70 03/05/2021 9:29 AM CDT Temperature 35.8 ??C (96.4 ??F) 03/05/2021 9:29 AM CD T Respiratory Rate - - Oxygen Saturation - - Inhaled Oxygen Concentration - - Weight 68 kg (150 lb) 03/05/2021 9:29 AM CDT Height 165.1 cm (5' 5 ) 03/05/2021 9:29 AM CDT Body Mass Index 24.96 03/05/2021 9:29 AM CDT documented in this encounter Patient Instructions * Patient Instructions* Dick Bowden NP - 03/05/2021 9:15 AM CDT Take 1 colace every other day. You can take 1 capful of Miralax with it or take the Miralax on opposite days of the colace. If has gone 3 days without a good BM, then take 2 Senna. Consider adding in Fair Life protein shakes 1-2 daily if needed. Time the meds based on how she tends to respond, meaning if waking up in the middle of the night give a few hours later than usual or try morning dosing on laxatives. documented in this encounter Progress Notes * Dick Bowden NP - 03/05/2021 9:15 AM CDT Images from the original note were not included. PATIENT DEMOGRAPHICS Perla Leon is a 80 y.o. White female. PATIENT'S CARE TEAM Patient Care Team: Theresa Camargo MD as PCP - General Laz Valencia MD as Consulting Physician (Cardiology) Migue Herman MD as Consulting Physician (Urology) Sonny Palmer MD as Surgeon (General Surgery) EMOGRAPHICS CHIEF COMPLAINT Chief Complaint Patient presents with ??? Follow-up Pt has not tired the protein drinks yet because she has been eating smaller meals but half of the mormal. Her daughters have been cooking for them so it is more controlled. Two months ago she was 168lb. Pt bm are once every three days (a big amount) but inbetween hard pellets. HPI New or existing patient visit: Existing. Referring Provider: Theresa Camargo MD Perla is here today with her daughter for follow-up. She is down 18 lb since her last visit with me on 01/18. Partially they think from a decreased appetite and partially because her constipation isdoing significantly better and in the beginning of the bowel regimen that she was provided, she putout a lot of stool. She states that her stomach does not hurt after eating. She was previously eating larger amounts to appease her family, but no longer feels like she needs to. She is eating until she is full and then stopping. They have not tried giving her any protein shakes. Again, she is not having any abdominal pain. Does not feel like her appetite is decreased. At the time of last visit she was having severe constipation issues and I gave them a long-term and acute regimen to follow. Originally they started with one or to doses of milk of magnesia daily, two cap fulls of MiraLax daily, two Colace pills daily, and senna as two pills every other day. Over the next several days they eliminated the milk of magnesia. Continued to give one cap full of MiraLax daily, one Colace pill daily , and senna as two pills every other day. They eventually cut out the MiraLax and just had her do the senna every two days. They have been adding in Benefiber. They slowly worked their way up to the point where she is taking three Benefiber pills 3 times daily. She is still taking the Colace every other day and will occasionally take Senna as needed, but her daughter is worried that they got her good and cleaned out and then now she is building back up with stool again since they are not being as aggressive with the laxaives. Patient lives at home alone with her , but family helps out as needed. Patient has difficulty getting to the bathroom on her own. Iron deficiency anemia-on 01/30 her iron level was 17. Hemoglobin was 11.8 and hematocrit 41. I sether up for two iron infusions. Last one was on 02/16. Has lab orders to repeat CBC and iron levels four weeks from now-six weeks post 2nd iron infusion. We are not having her do oral iron because of her constipation issues. On 11/27/20 CT with contrast noted a large amount of stool throughout the colon. No colitis or otherabnormality identified. On 12/22 she had an EGD with Dr. Patel. Duodenum was normal. It there is erythema in the antrumof the stomach. Multiple benign-appearing gastric polyps were noted. Irregular Z-line noted. No active bleeding identified. Fundic gland polyp noted on biopsy. H pylori testing negative. 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 Gastric biopsy did not reveal any concerns for metaplasia, dysplasia, or malignancy. ?? On 12/27 she had a flexible sigmoidoscopy with Dr. Patel to dig out a large fecal impaction in the rectum and sigmoid colon. A erythema was noted in the rectum and a few erosions, which could likely explain the occult blood loss. No active bleeding was identified. REVIEW OF SYSTEMS Review of Systems Constitutional: Negative for activity change chills, diaphoresis, fatigue, or fever. Weight is down18 lb since last visit. Appetite is a little less than what it was. HENT: Negative for congestion, drooling, mouth sores, postnasal drip, rhinorrhea, sore throat, trouble swallowing, and voice change. Respiratory: Negative for cough, choking, chest tightness, shortness of breath, wheezing, and stridor. Cardiovascular: Negative for chest pain, palpitations, and leg swelling. Gastrointestinal: See HPI for full review of this system. Constipation is improving. No abdominal pain. No heartburn or reflux. No black or bloody stools. No rectal bleeding or pain. No nausea or vomiting. Laxative sometimes cause diarrhea stools. Genitourinary: Negative for difficulty urinating, dysuria, frequency, and urgency. Musculoskeletal: Negative for arthralgias and myalgias. Skin: Negative for pallor and rash. Neurological: Negative for dizziness, light-headedness, and headaches. Psychiatric/Behavioral: Negative for decreased concentration, dysphoric mood, and sleep disturbance. The patient is not nervous/anxious. PHYSICAL EXAM BP 120/60 (BP Location: Left arm, Patient Position: Sitting) Pulse 70 Temp (!) 35.8 ??C (96.4 ??F) (Temporal) Ht 165.1 cm (5' 5 ) Wt 68 kg (150 lb) BMI 24.96 kg/m?? No LMP recorded. Patient has had a hysterectomy. Physical Exam Constitutional: General: No acute distress. Appearance: Not ill-appearing. Weight appears healthy. Very hard of hearing. Eyes: General: No scleral icterus. Neck: Thyroid: No thyroid mass or thyromegaly. Trachea: Trachea normal. Cardiovascular: Rate and Rhythm: Normal rate and regular rhythm. Heart sounds: No murmur heard. Appearance: No edema in legs. Pulmonary: Effort: Pulmonary effort is normal. Breath sounds: Normal breath sounds. Abdominal: General: Bowel sounds are normal. Palpations: Abdomen is soft and non-distended. Tenderness: There is no abdominal tenderness. There is no guarding or rebound. Hernia: No hernia is present. Lymphadenopathy: Cervical: No cervical adenopathy. Skin: General: Skin is warm and dry. Coloration: Skin is not jaundiced or pale. Findings: No bruising or rash. Neurological: Mental Status: Pt is alert and oriented to person, place, and time. Psychiatric: Mood and Affect: Mood normal. Behavior: Behavior normal. GI ASSESSMENT/PLAN Diagnoses and all orders for this visit: Chronic constipation (Primary) Improving overall, but starting to back slide. The Following guidance was recommended:Take 1 colaceevery other day. You can take 1 capful of Miralax with it or take the Miralax on opposite days of the colace. If has gone 3 days without a good BM, then take 2 Senna. They were advised to time the meds based on how she tends to respond, meaning if waking up in the middle of the night give a few hours later than usual or try morning dosing on laxatives. She will follow-up in three months and as needed. Iron deficiency anemia due to chronic blood loss Overall improving. On 01/30 her iron level was 17. Hemoglobin was 11.8 and hematocrit 41. I set herup for two iron infusions. Last one was on 02/16. Has lab orders to repeat CBC and iron levels fourweeks from now-six weeks post 2nd iron infusion. We are not having her do oral iron because of her constipation issues. Weight loss Down 18 lb since last OV. They will keep an eye on her weight loss. And let me know if there are any further concerns for additional weight loss. Partially likely from bowel prep/improvement of constipation. Recommend trial of protein supplementation Fair Life protein shakes or Premier protein, etc... Recommend she try and drink one or two daily. Return in about 3 months (around 06/05/2021) for constipation/impaction . Medication(s) and/or immunization(s) uses and side effects briefly discussed. Patient verbalizes understanding of all instructions provided today and agrees with plan. MEDICAL HISTORY Patient's active problem list, medical history, surgical history, social history, and family history were reviewed and updated as needed. MEDICATIONS Current Outpatient Medications: ??? amitriptyline (ELAVIL) 25 mg tablet ??? anastrozole (ARIMIDEX) 1 mg tablet ??? bisacodyL (DULCOLAX) 10 mg suppository ??? bromfenac 0.07 % drops ??? canagliflozin (INVOKANA) 100 mg tablet ??? cholecalciferol (cholecalciferol) 25 mcg (1,000 unit) tablet ??? cyanocobalamin (Vitamin B-12) 100 mcg tablet ??? docusate sodium (COLACE) 100 mg capsule ??? dorzolamide (TRUSOPT) 2 % ophthalmic solution ??? esomeprazole DR (NexIUM) 40 mg capsule ??? ferrous sulfate 325 mg (65 mg of elemental iron) tablet ??? flecainide (TAMBOCOR) 50 mg tablet ??? furosemide (LASIX) 40 mg tablet ??? glimepiride (AMARYL) 1 mg tablet ??? insulin glargine (LANTUS, BASAGLAR, SEMGLEE) 100 unit/mL (3 mL) pen for injection ??? iron sucrose (VENOFER) 200 mg iron/10 mL solution ??? levoFLOXacin (LEVAQUIN) 500 mg tablet ??? metOLazone (ZAROXOLYN) 2.5 mg tablet ??? multivitamin (ONCE DAILY) tablet tablet ??? polyethylene glycol (MIRALAX) 17 gram/dose powder ??? potassium chloride ER (KLOR-CON) 20 mEq CR tablet ??? rosuvastatin (CRESTOR) 10 mg tablet ??? senna (SENOKOT) 8.6 mg tablet ??? SITagliptin (JANUVIA) 100 mg tablet ??? spironolactone (ALDACTONE) 25 mg tablet ??? trospium (SANCTURA) 20 mg tablet ??? verapamil ER (VERELAN) 120 mg 24 hr capsule ??? verapamil SR (CALAN SR) 120 mg CR tablet ??? ALPRAZolam (XANAX) 0.25 mg tablet ??? apixaban (ELIQUIS) 5 mg tablet ??? levothyroxine (SYNTHROID) 75 mcg tablet Medications were reviewed and updated as needed. ALLERGIES Allergies Allergen Reactions ??? Donepezil Other (See comments) Reaction: unknown reaction, , , Reaction: yeast infection, ??? Black Pepper ??? Diltiazem Edema, Diarrhea and Other (See comments) Reaction: edema, , Reaction: diarrhea, , , Reaction: ankles swell, ??? Fluticasone Other (See comments) Reaction: colon problems, ??? Metformin Diarrhea Reaction: diarrhea, , ??? Salmeterol Other (See comments) Reaction: colon problems, Allergies were reviewed and updated as needed. Total time spent on the date of the ujaw-io-[id number] encounter, including both jqrx-td-gpcv time (including staff/provider time spent providing education) and nyq-phlj-zm-face time (pre-charting, reviewing chart, post-charting) was 30 minutes. This note is dictated and transcribed by [employer]. Research And Development Scientist variances may occur. Despite proofreading, typographical errors may occur. My collaborating physician is Dr. Neeta Patel-Gastroenterology. Dick Bowden NP documented in this encounter Plan of Treatment Not on file documented as of this encounter Visit Diagnoses Diagnosis Chronic constipation- Primary Unspecified constipation Iron deficiency anemia due to chronic blood loss Iron deficiency anemia secondary to blood loss (chronic) Weight loss Loss of weight documented in this encounter Care Teams Produce Laborer Relationship Specialty Start Date End Date Theresa Camargo MD PCP - General 09/29/18 12/05/22 Laz Valencia MD Consulting Physician Cardiology 03/22/19 12/05/22 Migue Herman MD Consulting Physician Urology 05/16/19 Sonny Palmer MD Surgeon General Surgery 05/16/19 documented as of this encounter
--- OUTSIDE RECORDS SUMMARY | 2024-05-26 12:58 | XMS_ITS | Encounter Summary ---
Author Organization [facility] Address [address] [place] [address] Care Team Providers Care Hospice Nurse Name Role Phone Migue Herman MD Unavailable [phone] Sonny Palmer MD Unavailable [phone] Elizabeth Car MD Primary Care Provider Encounter Details Date Type Department Care Team (Late st Contact Info) Description 12/06/2022 Telephone [facility] Cardiology [address] [place] [address] Syed Quintero MD [address] [address] Social History Tobacco Use Types Packs/Day Years [...] week 12/25/2020 How often do you attend [facility] or orthodoxy services? 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 Confirmed pt is taking the following meds/ doses. Eliquis 5mg BID Flecainide 50mg BID Lasix 40mg every day Rosuvastatin 10mg Spironolactone 25mg He is also faxing the med list for our review. Scanned under media * Telephone Encounter - Janette Aviles - 12/06/2022 3:30 PM CDT Jose R called from [facility] requesting call from nurse in regard to med list. States their med list is different from what we have. Contact: documented in this encounter Plan of Treatment Not on file documented as of this encounter Visit Diagnoses Not on filedocumented in this encounter Care Teams Hospice Nurse Relationship Specialty Start Date End Date Elizabeth Car MD [address] [place] [id number] PCP - General Family Medicine 12/06/22 Migue Herman MD Consulting Physician Urology 05/16/19 Sonny Palmer MD Surgeon General Surgery 05/16/19 documented as of this encounter
--- OUTSIDE RECORDS SUMMARY | 2024-05-26 12:58 | XMS_ITS | Encounter Summary ---
Author Organization [facility] Address [address] [place] [address] Care Team Providers Care School Library Media Specialist Name Role Phone Theresa Camargo MD Primary Care Provider [phone] Laz Valencia MD Unavailable [phone] Migue Herman MD Unavailable [phone] Sonny Palmer MD Unavailable [phone] Encounter Details Date Type Department Care Team (Late st Contact Info) Description 04/08/2022 Telephone [facility] Public [facility] Systems Mechanic at [address] [place] [address] Caroline Sinha Social History Tobacco Use Types Packs/Day Years [...] week 12/25/2020 How often do you attend [facility] or spiritism services? 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 It is very hard to transport pt so pt is going to [facility] but would like Dr. Valencia to recommend a good sole rounding machine operator to see. Please advise MACHINE OPERATOR documented in this encounter Plan of Treatment Not on file documented as of this encounter Visit Diagnoses Not on filedocumented in this encounter Care Teams School Library Media Specialist Relationship Specialty Start Date End Date Theresa Camargo MD PCP - General 09/29/18 12/05/22 Laz Valencia MD Consulting Physician Cardiology 03/22/19 12/05/22 Migue Herman MD Consulting Physician Urology 05/16/19 Sonny Palmer MD Surgeon General Surgery 05/16/19 documented as of this encounter
--- OUTSIDE RECORDS SUMMARY | 2024-05-26 12:58 | XMS_ITS | Encounter Summary ---
Author Organization [facility] Address [address] [place] [address] Care Team Providers Care Submarine Diver Name Role Phone Theresa Camargo MD Primary Care Provider [phone] Laz Valencia MD Unavailable [phone] Migue Herman MD Unavailable [phone] Sonny Palmer MD Unavailable [phone] Reason for Visit * Reason Comments OP Infusion * Episode Based Medications (Routine) - Closed Specialty Diagnoses / Procedures Referred By Contac t Referred To Contact Diagnoses Iron deficiency anemia due to chronic blood loss Neeta Patel MD [address] [place] [address] Phone: tel: fax: [facility] [address] [place] [address] [place] [address] Phone: tel: Referral ID Status Reason Start Date Expiration Date Visits Re quested Visits Authorized [id number] Closed 02/02/2021 03/04/2022 1 1 Encounter Details Date Type Department Care Team (Late st Contact Info) Description 02/16/2021 1:00 PM CDT Infusion [facility] [address] [place] [address] Neeta Patel MD [address] [place] [address] [place] [address] Iron deficiency anemia due to chronic blood loss (Primary Dx) Discharge Disposition: Discharge to home or self care Social History Tobacco Use Types Packs/Day Years [...] often do you attend chur ch or islam services? 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 Gender Identity Not on file Sexual Orientation Not on file documented as of this encounter Last Filed Vital Signs Vital Sign Reading Time Taken Comments Blood Pressure 124/41 02/16/2021 12:59 PM CDT Pulse 87 02/16/2021 12:59 PM CDT Temperature 36.3 ??C (97.3 ??F) 02/16/2021 12:59 PM C DT Respiratory Rate 20 02/16/2021 12:59 PM CDT Oxygen Saturation 95% 02/16/2021 12:59 PM CDT Inhaled Oxygen Concentration - - Weight - - Height - - Body Mass Index - - documented in this encounter Discharge Disposition Disposition Code Departure Means Destination Discharge to home or self care documented in this encounter Nursing Notes * France Nunez RN - 02/16/2021 1:00 PM CDT Patient presented to the infusion center today for IV Ferrlecit. Vitals stable. IV inserted in leftwrist. Ferrlecit given as ordered and charted on JUL. Patient tolerated well. IV removed. AVS printed and reviewed with patient. Patient had no further questions and left in stable condition. documented in this encounter Plan of Treatment Not on file documented as of this encounter Visit Diagnoses Diagnosis Iron deficiency anemia due to chronic blood loss- Primary Iron deficiency anemia secondary to blood loss (chronic) documented in this encounter Administered Medications Inactive Administered Medications - up to 3 most recent administrations Medication Order MAR Action Action Date Dose Rate Site ferric gluconate (FERRLECIT) 250 mg of elemental iron in sodium chloride 0.9% 100 mL IVPB 250 mg of elemental iron, intravenous, at 120 mL/hr, Administer over 60 Minutes, Once, On Fri02/16/21 at 1330, For 1 dose, Not to exceed 2.1 mg/min Room temperature onlyIndications:Iron deficiency anemia due to chronic blood loss New Bag 02/16/2021 1:38 PM CDT 250 mg of elemental iron 120 mL/hr sodium chloride 0.9% flush 10 mL 10 mL, intravenous, As needed, line care, Starting on Fri02/16/21 at 1254, Flush pre and post IV catheter use.Indications:Iron deficiency anemia due to chronic blood loss Given 02/16/2021 2:37 PM CDT 10 mL Given 02/16/2021 1:14 PM CDT 10 mL documented in this encounter Care Teams Submarine Diver Relationship Specialty Start Date End Date Theresa Camargo MD PCP - General 09/29/18 12/05/22 Laz Valencia MD Consulting Physician Cardiology 03/22/19 12/05/22 Migue Herman MD Consulting Physician Urology 05/16/19 Sonny Palmer MD Surgeon General Surgery 05/16/19 documented as of this encounter
--- OUTSIDE RECORDS SUMMARY | 2024-05-26 12:58 | XMS_ITS | Encounter Summary ---
Author Organization [facility] Address [address] [place] [address] Care Team Providers Care Band Sawyer Name Role Phone Theresa Camargo MD Primary Care Provider [phone] Laz Valencia MD Unavailable [phone] Migue Herman MD Unavailable [phone] Sonny Palmer MD Unavailable [phone] Encounter Details Date Type Department Care Team (Late st Contact Info) Description 09/06/2022 Telephone [facility] Cardiology [address] [place] [address] Syed Quintero MD [address] [place] [address] Social History Tobacco Use Types Packs/Day [...] often do you attend chur ch or episcopal services? 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 Valencia. His records are visible in the patient's chart. * Telephone Encounter - Milagros Jones - 09/06/2022 4:07 PM CDT Pt daughter calling states that Dr Elizabeth Car states that we need to request the ECHO with a medical record release form. Contact [phone] documented in this encounter Plan of Treatment Not on file documented as of this encounter Visit Diagnoses Not on filedocumented in this encounter Care Teams Band Sawyer Relationship Specialty Start Date End Date Theresa Camargo MD PCP - General 09/29/18 12/05/22 Laz Valencia MD Consulting Physician Cardiology 03/22/19 12/05/22 Migue Herman MD Consulting Physician Urology 05/16/19 Sonny Palmer MD Surgeon General Surgery 05/16/19 documented as of this encounter
--- OUTSIDE RECORDS SUMMARY | 2024-05-26 12:58 | XMS_ITS | Encounter Summary ---
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 PAF (paroxysmal atrial fibrillation) (CMS/HCC) (HCC) Procedures Transthoracic Echo (TTE) Complete W Doppler/CF Olaf Quintero MD [address] [place] [id number] Phone: tel: fax: [facility] Referral ID Status Reason Start Date Expiration Date Visits Re quested Visits Authorized [id number] Closed 12/06/2022 01/05/2024 1 1 Reason for Visit * Reason Comments New Patient Atherosclerosis * Consultation (Routine) - Closed Specialty Diagnoses / Procedures Referred By Alejandrina vale Referred To Contact Cardiology Diagnoses 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 Gender Identity Not on file Sexual Orientation Not on file documented as of this encounter Last Filed Vital Signs Vital Sign Reading Time Taken Comments Blood Pressure 142/60 12/06/2022 10:40 AM CDT Pulse 66 12/06/2022 10:40 AM CDT Temperature - - Respiratory Rate - - Oxygen Saturation 97% 12/06/2022 10:40 AM CDT Inhaled Oxygen Concentration - - Weight 71.7 kg (158 lb) 12/06/2022 10:40 AM CDT Height 165.1 cm (5' 5 ) 12/06/2022 10:40 AM CDT Body Mass Index 26.29 12/06/2022 10:40 AM CDT documented in this encounter Progress Notes * Olaf Quintero MD - 12/06/2022 10:30 AM CDT Cardiology Clinic Note CHIEF COMPLAINT / Reason For Consult: Coronary artery disease, atrial fibrillation, establish care HISTORY: Loc Leon is a 82 y.o. female who presents to establish care with us. Patient previously seeing Dr. Valencia as her senior sales administrator, however, now lives in a [place]ci, therefore, would liketo establish care with a senior sales administrator closer to home. From review of her [...] 40mg every day Rosuvastatin 10mg Spironolactone 25mg PAST MEDICAL HISTORY: Past Medical History: Diagnosis Date A-fib (CMS/HCC) (HCC) Anemia Anemia Asthma Asthma Atrial fibrillation (CMS/HCC) (HCC) Chronic coronary artery disease Coronary artery disease Diabetes mellitus (HCC) Familial spastic paraplegia (CMS/HCC) ([facility]) Glaucoma Glaucoma Glaucoma Herpes zoster Herpes zoster HX OTHER MEDICAL Transient ischemic attack (TIA) HX OTHER MEDICAL Fx Sacrum 1999 HX OTHER MEDICAL Lymphatic edema HX OTHER MEDICAL Spinal Cerebellum Degeneration HX OTHER MEDICAL URI/GERD; Outcome: improved HX OTHER MEDICAL TIA Hyperlipidemia Hyperlipidemia Hypertension Hypertension Lymphatic edema Osteoarthritis Osteoarthritis Pneumonia Sleep apnea PAST SURGICAL HISTORY: Past Surgical History: Procedure Laterality Date BREAST SURGERY left breast lumpectomy CHOLECYSTECTOMY 1997 Cholecystectomy HERNIA REPAIR HYSTERECTOMY 1986 Hysterectomy OTHER SURGICAL HISTORY Ulcer removal from vocal cord OTHER SURGICAL HISTORY Fx nose surgery OTHER SURGICAL HISTORY 2003 Right Arthroscopy knee OTHER SURGICAL HISTORY 2010 Ventral hernia repair with prolene mesh 01/26 OTHER SURGICAL HISTORY 2012 URI/GERD: Medical Management OTHER SURGICAL HISTORY ulcer removed from vocal cord TOTAL ABDOMINAL HYSTERECTOMY W/ BILATERAL SALPINGOOPHORECTOMY 1980 Hysterectomy, total abdominal, BSO FAMILY HISTORY: Family History Problem Relation Age of Onset Breast cancer Mother Cancer, breast; /Cancer -breast; Heart failure Father Congestive heart failure; Hypertension Brother Hypertension; Hypertension Brother Hypertension; SOCIAL HISTORY: Social History Tobacco Use Smoking status: Never Smokeless tobacco: Never Substance and Sexual Activity Drug use: No Sexual activity: Defer control/protection: Post-menopausal Alcohol Use: Not on file [...] a day busPIRone (BUSPAR) 5 mg tablet cranberry fruit (cranberry) 450 mg tablet Take [...] total) by mouth daily 90 tablet 3 insulin aspart prot/insuln asp (NOVOLOG MIX 70-30FLEXPEN U-100 SUBQ) Inject under the skin insulin glargine (LANTUS, BASAGLAR, SEMGLEE) 100 unit/mL (3 mL) pen for injection Inject 10 Units under the skin every morning levothyroxine (SYNTHROID) 75 mcg tablet Take 1 tablet (75 mcg total) by mouth machine adjuster leader case trim before breakfast 30 tablet 0 melatonin 5 mg tablet mupirocin (BACTROBAN) 2 % ointment Apply topically 3 (three) times a day nitroglycerin (NITROSTAT) 0.[address] 1 tablet (0.4 mg total) under the tongue every 5 (five) minutes as needed for chest pain oxyBUTYnin (DITROPAN) 1 mg/mL syrup Take by mouth 2 (two) times a day potassium chloride ER (KLOR-CON) 20 mEq CR tablet Take 1 tablet (20 mEq total) by mouth 4 (four) times a day rosuvastatin (CRESTOR) 10 mg tablet Take 1 tablet (10 mg total) by mouth nightly 90 tablet 3 SITagliptin (JANUVIA) 100 mg tablet Take 1 tablet (100 mg total) by mouth daily spironolactone (ALDACTONE) 25 mg tablet Take 1 tablet (25 mg total) by mouth daily One tablet by mouth every morning. 90 tablet 3 No current facility-administered medications for this visit. : REVIEW OF SYSTEMS: GENERAL: As per HPI HEENT: No headaches, blurred vision, impaired hearing, postnasal drip, throat congestion CVS: As per HPI PULMONARY: No cough, asthma, bronchitis, or pneumonia GI: No GERD, PUD, hernia, hemorrhoid, diverticula, or change in bowel habits : No difficulty voiding, stones, tumors, or kidney disease VASCULAR: No intermittent claudication, no discoloration of the extremities NEURO: No motor weakness, sensory loss, headache, visual changes, impaired speech, gait disturbance, syncope, TIA, or seizures RHEUM: No joint swelling, neck pain, back pain, hip pain, or knee pain DERM: No rash HEME: No bruising, no anemia PHYSICAL EXAMINATION: BP 142/60 (BP Location: Right arm, Patient Position: Sitting) Pulse 66 Ht 165.1 cm (5' 5 ) Wt71.7 kg (158 lb) SpO2 97% BMI 26.29 kg/m?? Body mass index is 26.29 kg/m??. GENERAL: Alert, oriented to person, place, and time. Elderly female in a wheelchair. HEAD: Normocephalic EYES: Extra ocular movement intact ENT: Unremarkable NECK: Supple with midline trachea CHEST: Clear to auscultation, no wheezes, rales or rhonchi, symmetric air entry CARDIAC: RRR, S1 S2 normal, no murmur, rub, heaves, thrills or gallops ABDOMEN: Soft, non-tender, non distended EXTREMITIES: Mild bilateral lower extremity edema : Urinary catheter bag noted. SKIN: Warm [...] heart failure Continue oral daily Lasix, Spironolactone. Will obtain echocardiogram. Paroxysmal atrial fibrillation In sinus rhythm on EKG today. Continue Flecainide, Eliquis. Hypertension Continue Lasix, Spironolactone Hyperlipidemia Continue statin History of pulmonary embolism s/p suction thrombectomy in September 2020 Return to clinic in 6 months. Olaf Quintero M.D. Interventional Cardiology documented in this encounter Plan of Treatment Not on file documented as of this encounter Procedures Procedure Name Priority Date/Time Associated Diagnosis Comments ECG 12-LEAD Routine 12/06/2022 Encounter for monitoring flecainide therapy documented in this encounter Results * TRANSTHORACIC ECHO (TTE) COMPLETE W DOPPLER/CF WO CONTRAST (02/10/2023 12:24 PM CDT) Anatomical Region Laterality Modality Ultrasound 02/10/2023 11:4 4 AM CDT Narrative 02/10/2023 1:23 PM CDT [facility] Cardiology [address] [facility] [address] [address] [address] [facility] [address], [place] [address] P:[phone] P:[phone] Echocardiographic Report ADDENDUM Patient Name: LOC LEON : 1940 Study Date: 02/10/2023 11:44:39 AM Gender: F Tech: Location: [place] Ref.Provider: OLAF QUINTERO Height(Cm): 165 BSA: 1.81 Weight(Kg): 71.7 Heart Rate: 73 BP: 143 / 67 Quality: Good Order Provider: OLAF QUINTERO Procedures: Echocardiographic Report: Transthoracic echocardiogram with complete 2D, M-Mode, and color Doppler examination. Indications: Coronary Artery Disease, and Paroxysmal atrial fibrillation. Measurements: 2D/M Mode ? Doppler ? Measurement ?Value ?Normal Range ?Measurement ?Value ?Normal Range ? LVIDd 2D ? 3.76 ? [ 3.90 - 5.30 ] cm ?STACIE Vmax ? 1.06 ? [ 2.00 - 4.00 ] cm2 ? LVIDs 2D ? 2.55 ? [ 2.30 - 3.90 ] cm ?AV Mean PG ? 15 ? mmHg ? LVPWd 2D ? 1.85 ? [ 0.60 - 1.00 ] cm ?AV Peak Javed ?2.72 ? m/s ? IVSd 2D ?1.78 ? [ 0.60 - 0.90 ] cm ?AV Peak PG ? 30 ? mmHg ? LA Dimension MM ?3.71 ? [ 2.70 - 3.80 ] cm ?AV VTI ? 41.66 ?cm ? AoR Diam MM ?3.32 ? [ 2.60 - 3.70 ] cm ?LVOT Diam ?2.14 ? [ 1.70 - 2.10 ] cm ? ACS MM ? 0.86 ? cm ?LVOT Peak Javed ?0.80 ? [ 0.70 - 1.10 ] m/s ?LVOT VTI ? 13.91 ?cm ?MV E Peak Javed ?0.70 ? [ 0.60 - 1.30 ] m/s ?MV A Peak Javed ?1.13 ? [ 0.40 - 0.80 ] m/s ?MV Decel Time ?325 ?[ 150 - 200 ] msec ?Lateral E` ? 0.04 ? cm/sec ?E` ? 0.04 ? cm/sec ?E/E` ? 18 ? Findings: Interpretation Site: Exam was interpreted at [facility]. Left Ventricle: Normal left ventricular systolic function. No focal wall motion abnormalities. Normal left ventricular size. Severe concentric left ventricular hypertrophy. Impaired diastolic relaxation Grade I. Ejection fraction is measured at 59 %. Right Ventricle: Normal right ventricular size. Normal right ventricular systolic function. Left Atrium: There is mild enlargement of left atrium. Right Atrium: The right atrium is normal in size. Atrial Septum: Normal atrial septum. Mitral Valve: Mild mitral annular calcification. No mitral valve regurgitation is seen. There is no hemodynamically significant mitral stenosis by Doppler. Aortic Valve: Moderate aortic stenosis. Mean gradient of 15.0 mmHg. Valve area of 1 cm2. Aortic cusps appear moderately calcified. Probable trileaflet aortic valve, although not all leaflets are visualized. Mild aortic valve regurgitation. Tricuspid Valve: Normal appearance of the tricuspid valve. No evidence of tricuspid regurgitation. Pulmonic Valve: Pulmonic valve not well visualized. No evidence of pulmonic regurgitation. Pericardium: Normal pericardium with no significant pericardial effusion. Aorta: Sinus of Valsalva is normal. IVC: Normal size and normal respiratory collapse consistent with normal right atrial pressure (<5 mmHg). Pulmonary Artery: Normal pulmonary artery size. Conclusions: Normal left ventricular systolic function. No focal wall motion abnormalities. Normal left ventricular size. Severe concentric left ventricular hypertrophy. Impaired diastolic relaxation Grade I. Ejection fraction is measured at 59 %. Intracavitary gradient 16 mm Hg. There is mild enlargement of left atrium. Moderate aortic stenosis. Mean gradient of 15.0 mmHg. Valve area of 1 cm2. Aortic cusps appear moderately calcified. Probable trileaflet aortic valve, although not all leaflets are visualized. Mild aortic valve regurgitation. Electronically Signed By: Dr. Yoshi Shah [facility] 2023-02-10 13:28:11 CDT Procedure Note Yoshi Shah MD - 02/10/2023 [facility] Cardiology [address], [place] [address] [address], [place] [address] P:[phone] P:[phone] Echocardiographic Report ADDENDUM Patient Name: Karl LEON ID: [id number] : [id number] Date: 02/10/2023 11:44:39 AM Gender: FAccession #: [id number] Tech: Location: [place] Ref.Provider: OLAF QUINTEROHeight(Cm): 165 BSA: 1.81Weight(Kg): 71.7 Heart Rate: 73BP: 143 / 67 Quality: GoodOrder Provider: OLAF QUINTERO Procedures: Echocardiographic Report: Transthoracic echocardiogram with complete 2D, M-Mode, and color Dopplerexamination. Indications: Coronary Artery Disease, and Paroxysmal atrial fibrillation. Measurements: 2D/M Mode Doppler Measurement Value Normal Range Measurement ValueNormal Range LVIDd 2D 3.76 [ 3.90 - 5.30 ] cm STACIE Vmax 1.06[ 2.00 - 4.00 ] cm2 LVIDs 2D 2.55 [ 2.30 - 3.90 ] cm AV Mean PG 15mmHg LVPWd 2D 1.85 [ 0.60 - 1.00 ] cm AV Peak Javed 2.72m/s IVSd 2D 1.78 [ 0.60 - 0.90 ] cm AV Peak PG 30mmHg LA Dimension MM 3.71 [ 2.70 - 3.80 ] cm AV VTI 41.66cm AoR Diam MM 3.32 [ 2.60 - 3.70 ] cm LVOT Diam 2.14[ 1.70 - 2.10 ] cm ACS MM 0.86 cm LVOT Peak Javed 0.80[ 0.70 - 1.10 ] m/s LVOT VTI 13.91cm MV E Peak Javed 0.70[ 0.60 - 1.30 ] m/s MV A Peak Javed 1.13[ 0.40 - 0.80 ] m/s MV Decel Time 325[ 150 - 200 ] msec Lateral E` 0.04cm/sec E` 0.04cm/sec E/E` 18 Findings: Interpretation Site: Exam was interpreted at [facility]. Left Ventricle: Normal left ventricular systolic function. No focal wall motionabnormalities. Normal left ventricular size. Severe concentric left ventricular hypertrophy.Impaired diastolic relaxation Grade I. Ejection fraction is measured at 59 %. Right Ventricle: Normal right ventricular size. Normal right ventricular systolicfunction. Left Atrium: There is mild enlargement of left atrium. Right Atrium: The right atrium is normal in size. Atrial Septum: Normal atrial septum. Mitral Valve: Mild mitral annular calcification. No mitral valve regurgitation is seen.There is no hemodynamically significant mitral stenosis by Doppler. Aortic Valve: Moderate aortic stenosis. Mean gradient of 15.0 mmHg. Valve area of 1 cm2.Aortic cusps appear moderately calcified. Probable trileaflet aortic valve, althoughnot all leaflets are visualized. Mild aortic valve regurgitation. Tricuspid Valve: Normal appearance of the tricuspid valve. No evidence of tricuspidregurgitation. Pulmonic Valve: Pulmonic valve not well visualized. No evidence of pulmonicregurgitation. Pericardium: Normal pericardium with no significant pericardial effusion. Aorta: Sinus of Valsalva is normal. IVC: Normal size and normal respiratory collapse consistent with normal rightatrial pressure (<5 mmHg). Pulmonary Artery: Normal pulmonary artery size. Conclusions: Normal left ventricular systolic function. No focal wall motionabnormalities. Normal left ventricular size. Severe concentric left ventricular hypertrophy.Impaired diastolic relaxation Grade I. Ejection fraction is measured at 59 %. Intracavitarygradient 16 mm Hg. There is mild enlargement of left atrium. Moderate aortic stenosis. Mean gradient of 15.0 mmHg. Valve area of 1 cm2.Aortic cusps appear moderately calcified. Probable trileaflet aortic valve, althoughnot all leaflets are visualized. Mild aortic valve regurgitation. Electronically Signed By: Dr. 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- Primary PAF (paroxysmal atrial fibrillation) ([facility]) ([facility]) Atrial fibrillation Hypertension, unspecified type Encounter for monitoring flecainide therapy Chronic diastolic congestive heart failure ([facility]) ([facility]) History of pulmonary embolism Personal history of venous thrombosis and embolism Hyperlipidemia, unspecified hyperlipidemia type 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 PAF (paroxysmal atrial fibrillation) ([facility]) ([facility]) Atrial fibrillation documented in this encounter Discontinued Medications Medication Sig Discontinue Reason Start Date End Da te ALPRAZolam (XANAX) 0.25 mg tablet Take 1 tablet (0.25 mg total) by mouth 2 (two) times a day as needed for anxiety Therapy completed 12/28/2020 12/06/2022 amitriptyline (ELAVIL) 25 mg tabletIndications:Francisco ropathic Pain Take 50 mg by mouth nightly Therapy completed 03/31/2019 12/06/2022 bisacodyL (DULCOLAX) 10 mg suppositoryIndication s:constipation Insert 1 suppository (10 mg total) into the rectum nightly Therapy completed 12/28/2020 12/06/2022 canagliflozin (INVOKANA) 100 mg tabletIndications:typ e 2 diabetes mellitus 100 mg daily Therapy completed 12/07/19 23 cholecalciferol (VITAMIN D-3) 25 mcg (1,000 unit) tablet Take 1,000 Units by mouth daily Therapy completed 12/06/2022 cyanocobalamin (Vitamin B-12) 100 mcg tabletIndications:Pre vention of Vitamin B12 Deficiency Take 100 mcg by mouth daily Therapy completed 12/06/2022 docusate sodium (COLACE) 100 mg capsuleIndications:co nstipation Please give Loc one capful Miralax every other day at 10:30 am and 1 colace tablet every other day on opposite days of Miralax at 10:30 am. Therapy completed 08/10/2021 12/06/2022 ferrous sulfate 325 mg (65 mg of elemental iron) tablet Take 325 mg by mouth Therapy completed 12/14/2020 glimepiride (AMARYL) 1 mg tablet 2 mg w/ breakfast , 2 mg with lunch and 1 mg with dinner Po Therapy completed 09/11/2020 12/06/2022 iron sucrose (VENOFER) 200 mg iron/10 mL solutionIndications:I casper Deficiency Anemia Give one infusion and repeat x1 one week later. Therapy completed 02/01/2021 12/06/2022 levoFLOXacin (LEVAQUIN) 500 mg tablet Take 500 mg by mouth daily Therapy completed 01/11/2021 12/06/2022 metOLazone (ZAROXOLYN) 2.5 mg tablet Take 1 tablet (2.5 mg total) by mouth 2 (two) times a week One tablet by mouth on Mondays and one tablet by mouth on . Therapy completed 08/13/2021 12/06/2022 multivitamin (ONCE DAILY) tablet tablet take 1 tablet by oral route every day with food Therapy completed 07/01/2016 12/06/2022 verapamil ER (VERELAN) 120 mg 24 hr capsule Take 1 capsule (120 mg total) by mouth nightly Therapy completed 08/10/2021 12/06/2022 trospium (SANCTURA) 20 mg tablet Take 20 mg by mouth 2 (two) times a day Therapy completed 01/04/2021 12/06/2022 senna (SENOKOT) 8.6 mg tablet Take 2 tablets every 2-3 days in the evening for additional management of constipation as needed. Therapy completed 01/18/2021 12/06/2022 polyethylene glycol (Purelax) 17 gram/dose powder Please give Loc one capful Miralax every other day at 10:30 am and 1 colace tablet every other day on opposite days of Miralax at 10:30 am. Therapy completed 08/10/2021 12/06/2022 documented as of this encounter Historical Medications * This list may reflect changes made after this encounter. insulin aspart prot/insuln asp (NOVOLOG MIX 70-30FLEXPEN U-100 SUBQ) Inject under the skin nitroglycerin (NITROSTAT) 0.[address] 1 tablet (0.4 mg total) under the tongue every 5 (five) minutes as needed for chest pain mupirocin (BACTROBAN) 2 % ointment Apply topically 3 (three) times a day melatonin 5 mg tablet escitalopram (LEXAPRO) 10 mg tablet Take 1 tablet (10 mg total) by mouth daily arginine-vitamin C-vitamin E 4.5 gram-156 mg/9.2 gram powder in packet Take by mouth acetic acid 2 % otic solutionIndicati ons:Otitis Externa 5 drops 3 (three) times a day acetaminophen 500 mg capsule Take 2 capsules (1,000 mg total) by mouth every 6 (six) hours as needed for mild pain (pain scale 1-4) cranberry fruit (cranberry) 450 mg tablet Take by mouth busPIRone (BUSPAR) 5 mg tablet 11/02/2022 oxyBUTYnin (DITROPAN) 1 mg/mL syrup Take by mouth 2 (two) times a day 4 added in this encounter Orders Outpatient Referral Count Last Ordered Date Fir st Ordered Date AMB REFERRAL TO CARDIOLOGY 1 12/06/2022 documented in this encounter Care Teams Proof Coins Inspector Relationship Specialty Start Date End Date Elizabeth Car MD [address] [facility] [address] [place] [id number] PCP - General Family Medicine 12/06/22 Migue Herman MD Consulting Physician Urology 05/16/19 Sonny Palmer MD Surgeon General Surgery 05/16/19 documented as of this encounter
--- OUTSIDE RECORDS SUMMARY | 2024-05-26 12:58 | XMS_ITS | Encounter Summary ---
Author Organization [facility] Healthcare Address [address] [place] [address] Care Team Providers Care Data Virtualization Consultant Name Role Phone Theresa Camargo MD Primary Care Provider [phone] Laz Valencia MD Unavailable [phone] Migue Herman MD Unavailable [phone] Sonny Palmer MD Unavailable [phone] Encounter Details Date Type Department Care Team (Late st Contact Info) Description 01/30/2021 8:45 AM CDT Lab [address] [id number] Neeta Patel MD [address] [place] [address] [address] KRUGER [address] [place] [id number] Dick Simeon NP [address] [facility] [address] KR[address]ER [address] [place] [id number] Iron deficiency anemia due to chronic blood loss; Chronic constipation; Chronic anticoagulation Discharge Disposition: Discharge to home or self [...] any clubs o r organizations such as jewish groups, unions, fraternal or athletic groups, or [...] on file Legal Sex Female 6:56 PM 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 Hemoglobinhas improved and is up to 11.8, which is good news. Iron unfortunately has dropped to 17. We will recommend starting iron infusions. Want to avoid oral iron due to risk of constipation as that is already a big issue for her. Will also likely guaiac her stools. documented in this encounter Plan of Treatment Not on file documented as of this encounter Procedures Procedure Name Priority Date/Time Associated Diagnosis Comments DIFFERENTIAL AUTO Routine 01/30/2021 8:5 0 AM CDT Iron deficiency anemia due to chronic blood loss IRON PROFILE W/ IBC Routine 01/30/2021 8 :50 AM CDT Iron deficiency anemia due to chronic blood loss Chronic constipation Chronic anticoagulation CBC WITH AUTO DIFFERENTIAL Routine 01/30/2021 8:50 AM CDT Iron deficiency anemia due to chronic blood loss documented in this encounter Results * (ABNORMAL) Differential, auto (01/30/2021 8:50 AM CDT) Neutrophil abs 7.0(H) 1.7 - 6.5 K/cumm [facility] ([place]) Imm gran abs 0.1 0.0 - 0.1 K/cumm [facility] ([place]) Lymphocyte abs 1.2 0.8 - 3.3 K/cumm [facility] ([place]) Monocyte abs 1.7(H) 0.2 - 0.8 K/cumm [facility] ([place]) Eosinophil abs 0.2 0.0 - 0.5 K/cumm [facility] ([place]) Basophil abs 0.1 0.0 - 0.1 K/cumm [facility] ([place]) Neutrophil pct 68.9 % [facility] ([place]) Comment: Interpretive Data Percent cell count reference ranges are not reported, since discordance with absolute values may lead to misinterpretation of CBC data. Current Interpretive Data was last revised on 2017. Imm gran pct 0.5 % [facility] ([place]) Comment: Interpretive Data Percent cell count reference ranges are not reported, since discordance with absolute values may lead to misinterpretation of CBC data. Current Interpretive Data was last revised on 2017. Lymphocyte pct 11.8 % [facility] ([place]) Comment: Interpretive Data Percent cell count reference ranges are not reported, since discordance with absolute values may lead to misinterpretation of CBC data. Current Interpretive Data was last revised on 2017. Monocyte pct 16.1 % [facility] ([place]) Comment: Interpretive Data Percent cell count reference ranges are not reported, since discordance with absolute values may lead to misinterpretation of CBC data. Current Interpretive Data was last revised on 2017. Eosinophil pct 2.2 % [facility] ([place]) Comment: Interpretive Data Percent cell count reference ranges are not reported, since discordance with absolute values may lead to misinterpretation of CBC data. Current Interpretive Data was last revised on 2017. Basophil pct 0.5 % [facility] ([place]) Comment: Interpretive Data Percent cell count reference ranges are not reported, since discordance with absolute values may lead to misinterpretation of CBC data. Current Interpretive Data was last revised on 2017. Blood 01/30/2021 8:50 AM CDT 01/30/2021 9:01 AM CDT Dick Simeon THEATRE PROFESSOR LAB BLOOD ORDERABLE S Final Result [facility] ([place]) [facility] Department [place] [address] * (ABNORMAL) CBC with auto differential (01/30/2021 8:50 AM CDT) WBC 10.2(H) 3.8 - 9.9 K/cumm [facility] ([place]) Hgb 11.8(L) 11.9 - 15.5 g/dL [facility] ([place]) Hct 41.0 35.6 - 45.5 % [facility] ([place]) Plt 345 150 - 400 K/cumm [facility] ([place]) MPV 10.1 9.1 - 12.3 fL [facility] ([place]) RBC 5.60(H) 3.90 - 5.20 M/cumm [facility] ([place]) MCV 73.2(L) 81.3 - 96.4 fL [facility] ([place]) MCH 21.1(L) 27.1 - 33.3 pg [facility] ([place]) MCHC 28.8(L) 32.3 - 35.7 g/dL [facility] ([place]) RDW CV 19.1(H) 11.1 - 14.9 % [facility] ([place]) RDW SD 49.1(H) 35.7 - 48.1 fL [facility] ([place]) NRBC abs 0.00 0.00 - 0.01 K/cumm [facility] ([place]) Blood 01/30/2021 8:50 AM CDT 01/30/2021 9:01 AM CDT Dick Simeon THEATRE PROFESSOR LAB BLOOD ORDERABLE S Final Result [facility] ([place]) 1 [facility] [place] [address] * (ABNORMAL) Iron profile w/ IBC (01/30/2021 8:50 AM CDT) Iron 17(L) 35 - 145 mcg/dL [facility] ([place]) TIBC 391 250 - 400 mcg/dL [facility]) Transferrin saturation 4(L) 20 - 50 % [facility] ([place]) Blood 01/30/2021 8:50 AM CDT 01/30/2021 9:01 AM CDT Dick Simeon THEATRE PROFESSOR LAB BLOOD ORDERABLE S Final Result [facility] ([place]) 1 [facility] [place] [place] [address] documented in this encounter Visit Diagnoses Diagnosis Iron deficiency anemia due to chronic blood loss Iron deficiency anemia secondary to blood loss (chronic) Chronic constipation Unspecified constipation Chronic anticoagulation Encounter for long-term (current) use of anticoagulants documented in this encounter Care Teams Data Virtualization Consultant Relationship Specialty Start Date End Date Theresa Camargo MD PCP - General 09/29/18 12/05/22 Laz Valencia MD Consulting Physician Cardiology 03/22/19 12/05/22 Migue Herman MD Consulting Physician Urology 05/16/19 Sonny Palmer MD Surgeon General Surgery 05/16/19 documented as of this encounter
--- OUTSIDE RECORDS SUMMARY | 2024-05-26 12:58 | XMS_ITS | Encounter Summary ---
Author Organization [facility] Healthcare Address [address] [place] [address] Care Team Providers Care Blood Bank Worker Name Role Phone Theresa Camargo MD Primary Care Provider [phone] Laz Valencia MD Unavailable [phone] Migue Herman MD Unavailable Sonny Palmer MD Unavailable [phone] Reason for Visit * Reason Comments OP Infusion Here for IV ferric g luconate dose 1 of 2. * Episode Based Medications (Routine) - Closed Specialty Diagnoses / Procedures Referred By Contac t Referred To Contact Diagnoses Iron deficiency anemia due to chronic blood loss Neeta Patel MD [address] [place] [id number] Phone: tel: fax: [facility] Infusion [address] [place] [address] Phone: tel: Referral ID Status Reason Start Date Expiration Date Visits Re quested Visits Authorized [id number] Closed 02/02/2021 03/04/2022 1 1 Encounter Details Date Type Department Care Team (Late st Contact Info) Description 02/09/2021 1:00 PM CDT Infusion [address] [place] [id number] Neeta Patel MD [address] [place] [address] DR KR[address] [place] [address] Iron deficiency anemia due to chronic blood [...] often do you attend chur ch or protestant services? 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 Gender Identity Not on file Sexual Orientation Not on file documented as of this encounter Last Filed Vital Signs Vital Sign Reading Time Taken Comments Blood Pressure 115/45 02/09/2021 1:29 PM CDT Pulse 80 02/09/2021 1:29 PM CDT Temperature 36.3 ??C (97.3 ??F) 02/09/2021 1:29 PM CD T Respiratory Rate 20 02/09/2021 1:29 PM CDT Oxygen Saturation 95% 02/09/2021 1:29 PM CDT Inhaled Oxygen Concentration - - Weight - - Height - - Body Mass Index - - documented in this encounter Patient Instructions * Patient Instructions* Connie Stanford RN - 02/09/2021 1:00 PM CDT Patient Education Sodium Ferric Gluconate Complex (By injection) Sodium Ferric Gluconate Complex (ROSENDA-rubi-um EV-ganesh Tgvq-zki-urlv KOM-plex) Treats iron deficiency anemia. Brand Name(s): Ferrlecit, PREMIERPro Rx Ferrlecit, Sodium Ferric Gluconate Complex Sucrose Novaplus There may be other brand names for this medicine. When This Medicine Should Not Be Used: This medicine is not right for everyone. You should not receive it if you had an allergic reaction to sodium ferric gluconate. How to Use This Medicine: Injectable ?? Your doctor will prescribe your dose and schedule. This medicine is given through a needle placed in a vein. ?? A nurse or other health provider will give you this medicine. ?? Missed dose: This medicine needs to be given on a fixed schedule. If you miss a dose, call your doctor or dialysis clinic for instructions. Drugs and Foods to Avoid: Ask your doctor or pharmacist before using any other medicine, including hbro-gfs-chofrhc medicines, vitamins, and herbal products. ?? This medicine may reduce your body's absorption of oral iron supplements. Ask your doctor if youhave questions about this. Warnings While Using This Medicine: ?? Tell your doctor if you are or . ?? This medicine may cause low blood pressure for a few hours after it is given. ?? Your doctor will do lab tests at regular visits to check on the effects of this medicine. Keep all appointments. Possible Side Effects While Using This Medicine: Call your doctor right away if you notice any of these side effects: ?? Allergic reaction: Itching or hives, swelling in your face or hands, swelling or tingling in your mouth or throat, chest tightness, trouble breathing ?? Chest pain, trouble breathing ?? Confusion, weakness, numbness or tingling in your hands, feet, or lips ?? Fast, pounding, or uneven heartbeat ?? Fever, chills, cough, sore throat, and body aches ?? Lightheadedness, dizziness, or fainting ?? Rapid weight gain, swelling in your hands, ankles, or feet If you notice these less serious side effects, talk with your doctor: ?? Headache or tiredness ?? Leg cramps or pain ?? Nausea, vomiting, diarrhea, loss of appetite ?? Pain, itching, burning, swelling, or a lump under your skin where the needle is placed If you notice other side effects that you think are caused by this medicine, tell your doctor. Call your doctor for medical advice about side effects. You may report side effects to FDA at 6-900-KXD-4578 ?? 2017 [employer] Information is for End User's use only and may not be sold, redistributed or otherwise used for commercial purposes. The above information is an preparole counseling aide only. It is not intended as medical advice for individual conditions or treatments. Talk to your doctor, nurse or pharmacist before following any medical regimen to see if it is safe and effective for you. documented in this encounter Discharge Disposition Disposition Code Departure Means Destination Discharge to home or self care documented in this encounter Nursing Notes * Connie Stanford RN - 02/09/2021 1:00 PM CDT Patient her per transport wheelchair, propelled by staff. She is her for her first of two Ferric gluconate (ferrlecit) infusions as per Dr. Patel's orders. Assessment completed. Patient has an indwelling olivas catheter that is draining cloudy, yellow urine. IV site established in her left wrist/forearm per protocol. A saline lock was created. A sterile Tegaderm placed over site. IV Ferric gluconate (Ferrlicet) was received from the pharmacy and given IV per pump and as per MAR. Patient tolerated the infusion without acute, ill effects. Infusion concluded. IV site was discontinued and the angiocatheter was removed. Light pressure was held to site with a cotton ball that was secured with Coband. Patient's daughter was given a copy of patient's AVS and drug information on Ferric gluconate. Patient left in stable condition per wheelchair. documented in this encounter Plan of Treatment [...] mL/hr, Administer over 60 Minutes, Once, On Fri02/09/21 at 1400, For 1 dose, Not to exceed 2.1 mg/min Room temperature onlyIndications:Iron deficiency anemia due to chronic blood loss New Bag 02/09/2021 2:04 PM CDT 250 mg of elemental iron 120 mL/hr Other (Comment) documented in this encounter Orders Medications Ordered That Daryn ht Not Have Been Administered Count Last Ordered Date First Ordered Date ferric gluconate (FERRLECIT) 250 mg of elemental iron in sodium chloride 0.9% 100 mL IVPB 1 02/09/2021 sodium chloride 0.9% flush 10 mL 1 02/10/20 21 documented in this encounter Care Teams Blood Bank Worker Relationship Specialty Start Date End Date Theresa Camargo MD PCP - General 09/29/18 12/05/22 Laz Valencia MD Consulting Physician Cardiology 03/22/19 12/05/22 Migue Herman MD Consulting Physician Urology 05/16/19 Sonny Palmer MD Surgeon General Surgery 05/16/19 documented as of this encounter
--- OUTSIDE RECORDS SUMMARY | 2024-05-26 12:58 | XMS_ITS | Encounter Summary ---
Author Organization [facility] Address [address] [place] [address] Care Team Providers Care Educational Administrator Name Role Phone Theresa Camargo MD Primary Care Provider [phone] Laz Valencia MD Unavailable [phone] Migue Herman MD Unavailable [phone] Sonny Palmer MD Unavailable [phone] Reason for Referral * Diagnostic Imaging (Routine) - Closed Specialty Diagnoses / Procedures Referred By Contac t Referred To Contact Diagnoses PMB (postmenopausal bleeding) Procedures US Pelvis W Endovaginal Maria Dolores Lopez MD Phone: tel: [facility] Referral ID Status Reason Start Date Expiration Date Visits Re quested Visits Authorized [id number] Closed 06/12/2021 07/12/2022 1 1 HASING OFFICER Reason for Visit * Reason Comments Vaginal Bleeding Encounter Details Date Type Department Care Team (Latest Contact Info) Description 06/06/2021 4:00 PM PURCHASING OFFICER Clinical Support [facility] [place] [address] [address] PMB (postmenopausal bleeding) (Primary Dx) Social History Tobacco Use Types [...] often do you attend chur ch or yarsani services? Never 12/25/2020 Do you belong to any clubs o r organizations such as anabaptist groups, unions, fraternal or athletic groups, or [...] on file Legal Sex Female 6:56 PM PURCHASING OFFICER Gender Identity Not on file Sexual Orientation Not on file documented as of this encounter Plan of Treatment Not on file documented as of this encounter Procedures Procedure Name Priority Date/Time Associated Diagnosis Comments US PELVIS W ENDOVAGINAL Schedule Routine, Read Routine (OP Routine) 06/13/2021 4:29 PM PURCHASING OFFICER PMB (postmenopausal bleeding) documented in this encounter Results * US Pelvis W Endovaginal (06/13/2021 4:29 PM PURCHASING OFFICER) Anatomical Region Laterality Modality Pelvis N/A Ultrasound Narrative 06/13/2021 4:29 PM PURCHASING OFFICER [facility] Pelvic Ultrasound Date of exam: 06/06/2021 Diagnoses and all orders for this visit: PMB (postmenopausal bleeding) (Primary) - ? US Pelvis W Endovaginal; Future Clinical history: ??Patient presents for pelvic ultrasound secondary to bleeding of unknown orgin No LMP recorded. Patient has had a hysterectomy. Findings: A transabdominal and transvaginal ultrasound was performed. ? The uterus is absent consistent with the patient's surgical history. ?? Neither ovary is visualized. ?? There is no free fluid and the adnexa was otherwise negative. ?? Impression: ??Normal post hysterectomy ultrasound Interpreting physician: Maria Dolores Lopez MD Obstetrics and Gynecology ?? us Maria Dolores Lopez MD IMG US PROCEDURES F inal Result documented in this encounter Visit Diagnoses Diagnosis PMB (postmenopausal bleeding)- Primary Postmenopausal bleeding documented in this encounter Care Teams Educational Administrator Relationship Specialty Start Date End Date Theresa Camargo MD PCP - General 09/29/18 12/05/22 Laz Valencia MD Consulting Physician Cardiology 03/22/19 12/05/22 Migue Herman MD Consulting Physician Urology 05/16/19 Sonny Palmer MD Surgeon General Surgery 05/16/19 documented as of this encounter
--- OUTSIDE RECORDS SUMMARY | 2024-05-26 12:58 | XMS_ITS | Encounter Summary ---
Author Organization [facility] Healthcare Address [address] [place] [address] Care Team Providers Care Edi Developer Name Role Phone Theresa Camargo MD Primary Care Provider [phone] Laz Valencia MD Unavailable [phone] Migue Herman MD Unavailable [phone] Sonny Palmer MD Unavailable [phone] Encounter Details Date Type Department Care Team (Late st Contact Info) Description 07/28/2021 8:25 AM INVESTIGATIONS CHIEF [address] [address] [place] [address] [address] Discharge Disposition: Discharge to home or self [...] often do you attend chur ch or roman catholic services? Never 12/25/2020 Do you belong to any clubs o r organizations such as yarsanism groups, unions, fraternal or athletic groups, or [...] on file Legal Sex Female 6:56 PM INVESTIGATIONS CHIEF Gender Identity Not on file Sexual Orientation Not on file documented as of this encounter Discharge Disposition Disposition Code Departure Means Destination Discharge to home or self care documented in this encounter Plan of Treatment Not on file documented as of this encounter Procedures Procedure Name Priority Date/Time Associated Diagnosis Comments EGFR Routine 07/28/2021 8:26 AM INVESTIGATIONS CHIEF DIFFERENTIAL AUTO Routine 07/28/2021 8:2 6 AM INVESTIGATIONS CHIEF IRON PROFILE W/ IBC Routine 07/28/2021 8 :26 AM INVESTIGATIONS CHIEF CBC WITH AUTO DIFFERENTIAL Routine 07/28/2021 8:26 AM INVESTIGATIONS CHIEF FERRITIN Routine 07/28/2021 8:26 AM INVESTIGATIONS CHIEF COMPREHENSIVE METABOLIC PANEL Routine 07/28/2021 8:26 AM INVESTIGATIONS CHIEF documented in this encounter Results * eGFR (07/28/2021 8:26 AM INVESTIGATIONS CHIEF) eGFR 86 mL/min/1. 73 m2 [facility] ([facility]) Comment: Interpretive Data Reference Interval Normal ?>/= [...] interpretive data was last reviewed 2021. Blood 07/28/2021 8:26 AM INVESTIGATIONS CHIEF 07/28/2021 8:53 AM INVESTIGATIONS CHIEF us Enrique Gonzalez MD LAB BLOOD ORDERABLES Bárbara [email or web address] Result [facility] (ARABELLA) 1 [facility] [place] [address] * (ABNORMAL) Differential, auto (07/28/2021 8:26 AM INVESTIGATIONS CHIEF) Neutrophil abs 5.6 1.7 - 6.5 K/cumm [facility] ([facility]) Imm gran abs 0.1 0.0 - 0.1 K/cumm [facility] ([facility]) Lymphocyte abs 1.5 0.8 - 3.3 K/cumm [facility] ([place]) Monocyte abs 1.2(H) 0.2 - 0.8 K/cumm [facility] ([place]) Eosinophil abs 0.2 0.0 - 0.5 K/cumm [facility] ([place]) Basophil abs 0.0 0.0 - 0.1 K/cumm [facility] ([facility]) Neutrophil pct 65.8 % [facility] ([place]) Comment: Interpretive Data Percent cell count reference ranges are not reported, since discordance with absolute values may lead to misinterpretation of CBC data. Current Interpretive Data was last revised on 2017. Imm gran pct 0.6 % [facility] ([facility]) Comment: Interpretive Data Percent cell count reference ranges are not reported, since discordance with absolute values may lead to misinterpretation of CBC data. Current Interpretive Data was last revised on 2017. Lymphocyte pct 17.2 % [facility] ([facility]) Comment: Interpretive Data Percent cell count reference ranges are not reported, since discordance with absolute values may lead to misinterpretation of CBC data. Current Interpretive Data was last revised on 2017. Monocyte pct 14.1 % [facility] ([place]) Comment: Interpretive Data Percent cell count reference ranges are not reported, since discordance with absolute values may lead to misinterpretation of CBC data. Current Interpretive Data was last revised on 2017. Eosinophil pct 1.8 % [facility] ([facility]) Comment: Interpretive Data Percent cell count reference ranges are not reported, since discordance with absolute values may lead to misinterpretation of CBC data. Current Interpretive Data was last revised on 2017. Basophil pct 0.5 % [facility] ([place]) Comment: Interpretive Data Percent cell count reference ranges are not reported, since discordance with absolute values may lead to misinterpretation of CBC data. Current Interpretive Data was last revised on 2017. Blood 07/28/2021 8:26 AM INVESTIGATIONS CHIEF 07/28/2021 8:53 AM INVESTIGATIONS CHIEF Enrique Gonzalez MD LAB BLOOD ORDERABLES Bárbara l Result Performing Organization Address City/[facility]/ZIP Co de Phone Number [facility] ([place]A) 1 [facility] [place] [address] * (ABNORMAL) CBC with auto differential (07/28/2021 8:26 AM INVESTIGATIONS CHIEF) WBC 8.5 3.8 - 9.9 K/cumm [facility] ([facility]) Hgb 16.7(H) 11.9 - 15.5 g/dL [facility] ([place]) Hct 50.7(H) 35.6 - 45.5 % [facility] ([place]) Plt 238 150 - 400 K/cumm [facility] ([place]) MPV 10.6 9.1 - 12.3 fL [facility] ([place]) RBC 5.82(H) 3.90 - 5.20 M/cumm [facility] ([place]) MCV 87.1 81.3 - 96.4 fL [facility] ([place]) MCH 28.7 27.1 - 33.3 pg [facility] ([place]) MCHC 32.9 32.3 - 35.7 g/dL [facility] ([place]) RDW CV 14.3 11.1 - 14.9 % [facility] ([place]) RDW SD 45.6 35.7 - 48.1 fL [facility] ([facility]) NRBC abs 0.00 0.00 - 0.01 K/cumm [facility] ([place]) Blood 07/28/2021 8:26 AM INVESTIGATIONS CHIEF 07/28/2021 8:53 AM INVESTIGATIONS CHIEF Enrique Gonzalez MD LAB BLOOD ORDERABLES Bárbara l Result Performing Organization Address City/[facility]/ZIP Co de Phone Number [facility]NA [facility] ([place]) 1 [place] [address] * Ferritin (07/28/2021 8:26 AM INVESTIGATIONS CHIEF) Pathologist [facility] Ferritin 32 15 - 150 ng/mL [facility] ([facility]) Blood 07/28/2021 8:26 AM INVESTIGATIONS CHIEF 07/28/2021 8:53 AM INVESTIGATIONS CHIEF Enrique Gonzalez MD LAB BLOOD ORDERABLES Bárbara l Result [facility] ([place]) 1 [place] [address] * (ABNORMAL) Iron profile w/ IBC (07/28/2021 8:26 AM INVESTIGATIONS CHIEF) [facility] Iron 61 35 - 145 mcg/dL [facility] ([place]) TIBC 314 250 - 400 mcg/dL [facility] ([place]) Transferrin saturation 19(L) 20 - 50 % [facility] ([facility]LLA) Blood 07/28/2021 8:26 AM INVESTIGATIONS CHIEF 07/28/2021 8:53 AM INVESTIGATIONS CHIEF Enrique Gonzalez MD LAB BLOOD ORDERABLES Bárbara l Result [facility] ([place]) 1 [facility] [place] [address] * (ABNORMAL) Comprehensive metabolic panel (07/28/2021 8:26 AM INVESTIGATIONS CHIEF) Pathologist [facility] Sodium 137 135 - 145 mmol/L [facility] ([place]) Potassium, pl 3.6 3.3 - 4.9 mmol/L [facility] ([place]) Chloride 98 97 - 110 mmol/L [facility] ([place]) CO2 28 22 - 32 mmol/L [facility] ([facility]) Anion gap 10 2 - 15 mmol/L [facility] ([place]) BUN 31(H) 8 - 25 mg/dL [facility] ([facility]) Creatinine 0.70 0.60 - 1.10 mg/dL [facility] ([facility]) Glucose 131 70 - 199 mg/dL [facility] ([facility]) Comment: Interpretive Data Fasting glucose >/= 126 mg/dl is diagnostic for diabetes. ?? Fasting is defined as no caloric intake for at least 8 hours. Fasting glucose between 100 mg/dl to 125 mg/dl is diagnostic of prediabetes. In a patient with classic symptoms of hyperglycemia or hyperglycemic crisis, a random glucose >/= 200 mg/dl is diagnostic for diabetes. In the absence of unequivocal hyperglycemia, results should be confirmed by repeat testing. The classification and Diagnosis of Diabetes Diabetes Care 2017;40 (Suppl. 1):S11. Current interpretive data was last revised 2017. Calcium 11.1(H) 8.5 - 10.3 mg/dL [facility] ([facility]) Bilirubin, total 0.3 0.1 - 1.2 mg/dL [facility] ([facility]) Protein, pl 6.8 6.5 - 8.5 g/dL [facility] ([place]) Albumin 4.0 3.5 - 5.0 g/dL [facility] ([facility]) Alk phos 100 40 - 130 Units/L [facility] ([facility]) ALT 27 7 - 45 Units/L [facility] ([facility]) AST 19 10 - 45 Units/L [facility] ([facility]) Blood 07/28/2021 8:26 AM INVESTIGATIONS CHIEF 07/28/2021 8:53 AM INVESTIGATIONS CHIEF Enrique Gonzalez MD LAB BLOOD ORDERABLES Bárbara l Result [facility] ([place]) 1 [facility] Department [place] [address] documented in this encounter Visit Diagnoses Not on filedocumented in this encounter Care Teams Edi Developer Relationship Specialty Start Date End Date Theresa Camargo MD PCP - General 09/29/18 12/05/22 Laz Valencia MD Consulting Physician Cardiology 03/22/19 12/05/22 Migue Herman MD Consulting Physician Urology 05/16/19 Sonny Palmer MD Surgeon General Surgery 05/16/19 documented as of this encounter
--- OUTSIDE RECORDS SUMMARY | 2024-05-26 12:58 | XMS_ITS | Encounter Summary ---
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, unspecified whether angina present Laz Valencia MD [address] [place] [address] [address] [place] [address] Phone: tel: fax: Noah Damico MD [address] [facility] [address] [place] [address] Phone: tel: fax: Referral ID Status Reason Start Date Expiration Date V isits Requested Visits Authorized [id number] Closed Specialty Services Required 07/05/2022 08/04/2023 1 1 Question Answer Please select the performing region: [facility] [[id number]] Please select the performing department: [facility] CARD MRYVL [[id number]] To provider: NOAH DAMICO [[id number]] # of visits: 1 ON CLASSIFICATION COUNSELOR Encounter Details Date Type Department Care Team (Late st Contact Info) Description 07/05/2022 Orders Only [place] [facility] [employer] [facility] [employer] [facility] at [address] [place] [address] Laz Valencia MD [address] [place] [address] [address] [place] [address] 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, unspecified whether angina present Expected: 07/19/2022 (Approximate), Expires: 07/05/2023 documented as of this encounter Visit Diagnoses Diagnosis 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
--- OUTSIDE RECORDS SUMMARY | 2024-05-26 12:58 | XMS_ITS | Encounter Summary ---
Author Organization [facility] Healthcare Address [address] [place] [address] Care Team Providers Care Rn Staff Name Role Phone Theresa Camargo MD Primary Care Provider [phone] Laz Valencia MD Unavailable [phone] Migue Herman MD Unavailable [phone] Sonny Palmer MD Unavailable [phone] Encounter Details Date Type Department Care Team (Latest Contact Info) Description 08/30/2022 12:10 PM CDT - 08/30/2022 11:59 PM CDT Hospital Encounter [facility] [address] [place] [address] Discharge Disposition: Discharge to home or self [...] week 12/25/2020 How often do you attend [facility] or islam services? 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 Gender Identity Not on file Sexual Orientation Not on file documented as of this encounter Medications at Time of Discharge anastrozole (ARIMIDEX) 1 mg tabletIndicatio ns:prevention of breast cancer in high risk women Take 1 tablet (1 mg total) by mouth daily apixaban (ELIQUIS) 5 mg tablet Take 1 tablet (5 mg total) by mouth 2 (two) times a day 60 tablet 11 08/10/2021 bromfenac 0.07 % drops Administer 1 drop into affected eye(s) 2 (two) times a day dorzolamide (TRUSOPT) 2 % ophthalmic solution Administer 1 drop into both eyes 2 (two) times a day flecainide (TAMBOCOR) 50 mg tablet TAKE 1 TABLET TWICE A DAY 180 tablet 3 06/08/2021 furosemide (LASIX) 40 mg tablet Take 1 tablet (40 mg total) by mouth daily 90 tablet 3 08/10/2021 insulin glargine (LANTUS, BASAGLAR, SEMGLEE) 100 unit/mL (3 mL) pen for injection Inject 10 Units under the skin every morning lactulose solution 10 gram/15mL 05/11/2022 potassium chloride ER (KLOR-CON) 20 mEq CR tablet Take 1 tablet (20 mEq total) by mouth 4 (four) times a day rosuvastatin (CRESTOR) 10 mg tablet Take 1 tablet (10 mg total) by mouth nightly 90 tablet 3 08/10/2021 spironolactone (ALDACTONE) 25 mg tablet Take 1 tablet (25 mg total) by mouth daily One tablet by mouth every morning. 90 tablet 3 08/10/2021 ALPRAZolam (XANAX) 0.25 mg tablet Take 1 tablet (0.25 mg total) by mouth 2 (two) times a day as needed for anxiety 5 tablet 12/28/2020 12/07/19 23 amitriptyline (ELAVIL) 25 mg tabletIndicatio ns:Neuropathic Pain Take 50 mg by mouth nightly 03/31/2019 12/07/19 23 bisacodyL (DULCOLAX) 10 mg suppositoryIndi cations:constip ation Insert 1 suppository (10 mg total) into the rectum nightly 12 suppository 12/28/2020 12/07/19 23 canagliflozin (INVOKANA) 100 mg tabletIndicatio ns:type 2 diabetes mellitus 100 mg daily 12/07/19 23 cholecalciferol (VITAMIN D-3) 25 mcg (1,000 unit) tablet Take 1,000 Units by mouth daily 12/07/19 23 cyanocobalamin (Vitamin B-12) 100 mcg tabletIndicatio ns:Prevention of Vitamin B12 Deficiency Take 100 mcg by mouth daily 12/07/19 23 docusate sodium (COLACE) 100 mg capsuleIndicati ons:constipatio n Please give Perla one capful Miralax every other day at 10:30 am and 1 colace tablet every other day on opposite days of Miralax at 10:30 am. 45 capsule 11 08/10/2021 12/07/[address] (NexIUM) 40 mg capsule Take 1 capsule (40 mg total) by mouth daily before breakfast 03/04/20 24 ferrous sulfate 325 mg (65 mg of elemental iron) tablet Take 325 mg by mouth 12/14/2020 12/07/19 23 glimepiride (AMARYL) 1 mg tablet 2 mg w/ breakfast , 2 mg with lunch and 1 mg with dinner Po 09/11/2020 12/07/19 23 iron sucrose (VENOFER) 200 mg iron/10 mL solutionIndicat ions:Iron Deficiency Anemia Give one infusion and repeat x1 one week later. 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 8 tablet 3 08/13/2021 12/07/19 23 multivitamin (ONCE DAILY) tablet tablet take 1 tablet by oral route every day with food 0 0 07/01/2016 12/07/19 23 polyethylene glycol (Purelax) 17 gram/dose powder Please give Perla one capful Miralax every other day at 10:30 am and 1 colace tablet every other day on opposite days of Miralax at 10:30 am. 510 g 11 08/10/2021 12/07/19 23 senna (SENOKOT) 8.6 mg tablet Take 2 tablets every 2-3 days in the evening for additional management of constipation as needed. 60 tablet 1 01/18/2021 12/07/19 23 SITagliptin (JANUVIA) 100 mg tablet Take 1 tablet (100 mg total) by mouth daily 05/23/19 24 trospium (SANCTURA) 20 mg tablet Take 20 mg by mouth 2 (two) times a day 01/04/2021 12/07/19 23 verapamil ER (VERELAN) 120 mg 24 hr capsule Take 1 capsule (120 mg total) by mouth nightly 90 capsule 3 08/10/2021 12/07/19 23 documented as of this encounter Discharge Disposition Disposition Code Departure Means Destination Discharge to home or self care documented in this encounter Plan of Treatment Not on file documented as of this encounter Procedures Procedure Name Priority Date/Time Associated Diagnosis Comments EGFR Routine 08/30/2022 12:10 PM CDT DIFFERENTIAL AUTO Routine 08/30/2022 12: 10 PM CDT COMPREHENSIVE METABOIC PANEL, SERUM Routine 08/30/2022 12:10 PM CDT CBC WITH AUTO DIFFERENTIAL Routine 08/30/2022 12:10 PM CDT documented in this encounter Results * eGFR (08/30/2022 12:10 PM CDT) Pathologist [facility] eGFR 95 mL/min/1. 73 m2 [facility] [...] of Race in Diagnosing Kidney Disease, JASN 202). The CKD-EPI equation should not be used for patients with unstable renal function and has not been validated in children and those over 70. Current interpretive data was last reviewed 2021. Blood 08/30/2022 12:1 0 PM CDT 08/30/2022 1:22 PM CDT Elizabeth Car MD LAB BLOOD ORDERABLES Fi nal Result [facility] [address] Department [place] [address] * (ABNORMAL) Differential, auto (08/30/2022 12:10 PM CDT) Neutrophil abs 7.1(H) 1.7 - 6.5 K/cumm [facility] Imm gran abs 0.1 0.0 - 0.1 K/cumm [facility] Lymphocyte abs 2.2 0.8 - 3.3 K/cumm [facility] Monocyte abs 2.4(H) 0.2 - 0.8 K/cumm [facility] Eosinophil abs 0.3 0.0 - 0.5 K/cumm [facility] Basophil abs 0.1 0.0 - 0.1 K/cumm [facility] Neutrophil pct 58.2 % [facility] Comment: Interpretive Data Percent cell count reference ranges are not reported, since discordance with absolute values may lead to misinterpretation of CBC data. Current Interpretive Data was last revised on 2017. Imm gran pct 0.6 % [facility] Comment: Interpretive Data Percent cell count reference ranges are not reported, since discordance with absolute values may lead to misinterpretation of CBC data. Current Interpretive Data was last revised on 2017. Lymphocyte pct 17.9 % [facility] Comment: Interpretive Data Percent cell count reference ranges are not reported, since discordance with absolute values may lead to misinterpretation of CBC data. Current Interpretive Data was last revised on 2017. Monocyte pct 20.1 % [facility] Comment: Interpretive Data Percent cell count reference ranges are not reported, since discordance with absolute values may lead to misinterpretation of CBC data. Current Interpretive Data was last revised on 2017. Eosinophil pct 2.4 % [facility] Comment: Interpretive Data Percent cell count reference ranges are not reported, since discordance with absolute values may lead to misinterpretation of CBC data. Current Interpretive Data was last revised on 2017. Basophil pct 0.8 % [facility] Comment: Interpretive Data Percent cell count reference ranges are not reported, since discordance with absolute values may lead to misinterpretation of CBC data. Current Interpretive Data was last revised on 2017. Blood 08/30/2022 12:1 0 PM CDT 08/30/2022 1:13 PM CDT us Elizabeth Car MD LAB BLOOD ORDERABLES Fi nal Result [facility] [address] Department [place] [address] * (ABNORMAL) CBC with auto differential (08/30/2022 12:10 PM CDT) WBC 12.2(H) 3.8 - 9.9 K/cumm [facility] Hgb 13.7 11.9 - 15.5 g/dL [facility] Hct 45.2 35.6 - 45.5 % [facility] Plt 351 150 - 400 K/cumm [facility] MPV 10.6 9.1 - 12.3 fL [facility] RBC 5.85(H) 3.90 - 5.20 M/cumm [facility] MCV 77.3(L) 81.3 - 96.4 fL [facility] MCH 23.4(L) 27.1 - 33.3 pg [facility] MCHC 30.3(L) 32.3 - 35.7 g/dL [facility] RDW CV 18.6(H) 11.1 - 14.9 % [facility] RDW SD 50.7(H) 35.7 - 48.1 fL [facility] NRBC abs 0.00 0.00 - 0.01 K/cumm [facility] Blood 08/30/2022 12:1 0 PM CDT 08/30/2022 1:13 PM CDT Elizabeth Car MD LAB BLOOD ORDERABLES Fi nal Result Performing Organization Address [facility] [place] [address] [address] Department [place] [address] * (ABNORMAL) Comprehensive metabolic panel, serum (08/30/2022 12:10 PM CDT) Sodium 138 135 - 145 mmol/L [facility] Potassium, sr 4.0 3.6 - 5.2 mmol/L [facility] Chloride 104 97 - 110 mmol/L [facility] CO2 25 22 - 32 mmol/L [facility] Anion gap 9 2 - 15 mmol/L [facility] BUN 12 8 - 25 mg/dL [facility] Creatinine 0.45(L) 0.60 - 1.10 mg/dL [facility] Glucose 153 70 - 199 mg/dL [facility] Comment: Interpretive Data Fasting glucose >/= 126 [...] classification and Diagnosis of Diabetes Diabetes Care 2021; 46: S19-S40. Current interpretive data was last revised 2022. Calcium 11.3(H) 8.5 - 10.3 mg/dL [facility] Bilirubin, total 0.2 0.1 - 1.2 mg/dL [facility] Protein, sr 6.6 6.2 - 8.2 g/dL [facility] Albumin 3.7 3.5 - 5.0 g/dL [facility] Alk phos 123 40 - 130 Units/L [facility] ALT 159(H) 7 - 45 Units/L [facility] AST 51(H) 10 - 45 Units/L [facility] Blood 08/30/2022 12:1 0 PM CDT 08/30/2022 1:13 PM CDT Elizabeth Car MD LAB BLOOD ORDERABLES Fi nal Result [facility] [address] Department [place] [address] documented in this encounter Visit Diagnoses Not on filedocumented in this encounter Care Teams Rn Staff Relationship Specialty Start Date End Date Theresa Camargo MD PCP - General 09/29/18 12/05/22 Laz Valencia MD Consulting Physician Cardiology 03/22/19 12/05/22 Migue Herman MD Consulting Physician Urology 05/16/19 Sonny Palmer MD Surgeon General Surgery 05/16/19 documented as of this encounter
--- OUTSIDE RECORDS SUMMARY | 2024-05-26 12:58 | XMS_ITS | Encounter Summary ---
Author Organization [facility] Address [address] [place] [address] Care Team Providers Care Cone Worker Name Role Phone Theresa Camargo MD Primary Care Provider [phone] Laz Valencia MD Unavailable [phone] Migue Herman MD Unavailable [phone] Sonny Palmer MD Unavailable [phone] Encounter Details Date Type Department Care Team (Late st Contact Info) Description 05/23/2022 Telephone [place] [employer] [facility] Representative at [address] [place] [address] Brandon Briones MA Social History Tobacco Use Types Packs/Day Years [...] week 12/25/2020 How often do you attend [facility] or adventism services? 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 I am sorry. I could not understand his name. The phone number is [phone]. She is a current inpt at [facility] hosp. THCARE CONSULTING MANAGER documented in this encounter Plan of Treatment Not on file documented as of this encounter Visit Diagnoses Not on filedocumented in this encounter Care Teams Cone Worker Relationship Specialty Start Date End Date Theresa Camargo MD PCP - General 09/29/18 12/05/22 Laz Valencia MD Consulting Physician Cardiology 03/22/19 12/05/22 Migue Herman MD Consulting Physician Urology 05/16/19 Sonny Palmer MD Surgeon General Surgery 05/16/19 documented as of this encounter
--- OUTSIDE RECORDS SUMMARY | 2024-05-26 12:58 | XMS_ITS | Encounter Summary ---
Author Organization [facility] Address [address] [place] [address] Care Team Providers Care Marketing Pr Intern Name Role Phone Theresa Camargo MD Primary Care Provider [phone] Laz Valencia MD Unavailable [phone] Mgiue Herman MD Unavailable [phone] Sonny Palmer MD Unavailable [phone] Encounter Details Date Type Department Care Team (Late st Contact Info) Description 02/02/2021 Telephone [facility] [address] [place] [address] Mila Mccarty RN Social History Tobacco Use Types Packs/Day Years [...] often do you attend chur ch or confucianist services? 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 Ibarra office. She was instructed on where to go and confirmed the date and time of her appts. documented in this encounter Plan of Treatment Not on file documented as of this encounter Visit Diagnoses Not on filedocumented in this encounter Care Teams Marketing Pr Intern Relationship Specialty Start Date End Date Theresa Camargo MD PCP - General 09/29/18 12/05/22 Laz Valencia MD Consulting Physician Cardiology 03/22/19 12/05/22 Migue Herman MD Consulting Physician Urology 05/16/19 Sonny Palmer MD Surgeon General Surgery 05/16/19 documented as of this encounter
--- OUTSIDE RECORDS SUMMARY | 2024-05-26 12:58 | XMS_ITS | Encounter Summary ---
Author Organization [facility] Address [address] [place] [address] Care Team Providers Care Filter Screen Cleaner Name Role Phone Theresa Camargo MD Primary Care Provider Laz Valencia MD Unavailable [phone] Migue Herman MD Unavailable [phone] Sonny Palmer MD Unavailable [phone] Encounter Details Date Type Department Care Team (Late st Contact Info) Description 02/01/2021 Telephone [facility] Gastroenterology at [address] [place] [address] Aruna Patrick MA Social History Tobacco Use Types Packs/Day [...] 12/25/2020 How often do you attend [facility] or buddhist services? 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 10 mL 1 02/01/2021 3 documented in this encounter Miscellaneous Notes * Telephone Encounter - Austen Bowden NP - 02/02/2021 9:27 AM CDT Okay, sounds like they are making progress- thank you! * Telephone Encounter - Loreta Winter MA - 02/01/2021 5:09 PM CDT Called and spoke to the patients daughter. She gave verbal understanding of infusion and CBC instructions. Pt daughter stated patients constipation has been a trial and error with the medication. They had the patient where she was have many bm in a day where the family was having to take shifts. Family reduced medications and patient again was not going. They have since given her a little more than one dose and the patient has had quite a few bm today. * Telephone Encounter - Loreta Winter MA - 02/01/2021 2:46 PM CDT Called the patients daughter back to let her know when to have the repeat blood work done. She asked for a call back in 20 min. Will try to call the patients daughter then. Paperwork has been faxed over to the infusion center. They will reach out to contact the pt to set up infusions * Telephone Encounter - Aruna Patrick MA - 02/01/2021 12:20 PM CDT Here is the infusion info you needed :) * Addendum Note - Austen Bowden NP - 02/01/2021 12:12 PM CDTAddended by: AUSTEN BOWDEN on: 02/01/2021 12:12 PM Modules accepted: Orders * Telephone Encounter - Austen Bowden NP - 02/01/2021 12:08 PM CDT Order printed for iron infusions. Give one infusion and repeat x1, one week later. Please seek insurance approval and fax to our infusion center. Order placed to repeat CBC 4 weeks after 2nd infusion. Please make pt and her daughter aware. Is her constipation doing better? * Telephone Encounter - Aruna Patrick MA - 02/01/2021 10:08 AM CDT Pt daughter called in and left a message wanting to cancel pt appt scheduled for today and maybe doa phone visit. Returned phone call. Daughter informed that we do not do phone visits or virtual appt but that we can get her rescheduled. Daughter does not want to reschedule at this time but will call back to reschedule. Labs result given (per LOTTIE Jennings) iron was low recommend iron infusion (less risk with constipation) 2 infusions one week apart; hemoglobin was 11.8 last time it was 11.3. Daughter states that they are okay with doing the infusions. documented in this encounter Plan of Treatment Not on file documented as of this encounter Visit Diagnoses Diagnosis Iron deficiency anemia due to chronic blood loss- Primary Iron deficiency anemia secondary to blood loss (chronic) documented in this encounter Care Teams Filter Screen Cleaner Relationship Specialty Start Date End Date Theresa Camargo MD PCP - General 09/29/18 12/05/22 Laz Valencia MD Consulting Physician Cardiology 03/22/19 12/05/22 Migue Herman MD Consulting Physician Urology 05/16/19 Sonny Palmer MD Surgeon General Surgery 05/16/19 documented as of this encounter
--- OUTSIDE RECORDS SUMMARY | 2024-05-26 12:58 | XMS_ITS | Encounter Summary ---
Author Organization [facility] Address [address] [place] [address] Care Team Providers Care Casting Room Helper Name Role Phone Theresa Camargo MD Primary Care Provider [phone] Laz Valencia MD Unavailable [phone] Migue Herman MD Unavailable [phone] Sonny Palmer MD Unavailable [phone] Reason for Visit * Reason Comments Congestive Heart Failure Atrial Fibrillation Encounter Details Date Type Department Care Team (Late st Contact Info) Description 08/06/2021 11:15 AM CDT Office Visit [place] [employer] [address] [id number] Ana Lilia Rain, GLOBAL CREATIVE CHAIRMAN 2 [facility] [address] [place] [address] PAF (paroxysmal atrial fibrillation) (CMS/HCC) (HCC) (Primary Dx); Chronic diastolic congestive heart failure (CMS/HCC) (HCC); Pure hypercholesterolemia; Primary hypertension Social History Tobacco Use Types Packs/Day Years [...] often do you attend chur ch or mandaen services? 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 Gender Identity Not on file Sexual Orientation Not on file documented as of this encounter Last Filed Vital Signs Vital Sign Reading Time Taken Comments Blood Pressure 103/54 08/06/2021 11:37 AM CDT Pulse 68 08/06/2021 11:37 AM CDT Temperature 36.4 ??C (97.6 ??F) 08/06/2021 11:37 AM C DT Respiratory Rate 18 08/06/2021 11:37 AM CDT Oxygen Saturation - - Inhaled Oxygen Concentration - - Weight 72.6 kg (160 lb) 08/06/2021 11:37 AM CDT Height 165.1 cm (5' 5 ) 08/06/2021 11:37 AM CDT Body Mass Index 26.63 08/06/2021 11:37 AM CDT documented in this encounter Progress Notes * Ana Lilia Rain GLOBAL CREATIVE CHAIRMAN - 08/06/2021 11:15 AM CDT Cardiology note Reason for Office Visit: CC: Patient is presenting for a follow up visit for a-fib, CAD History of Present Illness: Perla Leon is a 80 y.o. female who presents to the office for a -fib . CAD Patient has had a cath in 2010 showing intermediate CAD normal LV , physiologic lesion assessment of the left anterior descending showing insignificant stenosis. Patient was in [place] 10/2015 went to EMD had chest pain and nausea and found to be in a-fib. Patient converted with medication (amiodarone) . Patient had negative troponin.Patient not placed on anticoagulation because she has a history of falls and is on plavix for history of TIAs in the past. 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 her knees gave out. Her face is bruised at present she did not loose consciousness Patient states she has not had chest pain but has had increase indigestion for last six months. Shehas history of GERD on nexium. She is now in SR and had a 21 day cardionet. patient followed up on her TSH with Dr. Javed at [facility] for a low thyroid but improved and will monitor it. patient had episode of diarhea and became dehydrated she questionsed whether she had a-fib for she had an episode of chest pain. Was taken to hopsital for hypotension and at one point had pulse of 40 related to vagal response . troponins were negative and patient went home on cardionet monitor not yielding any results other than sinus rhythm. Patient on 12/28/2016 went to ER for unable to lift her left leg. She had been on vacation and supposed to use machine for lymph edema. Patient did not take her diurtetics faithfully during her trip and hadincrease edema. Her 2 day neuro work up was negative. but patient still has increase edema in her legs. Was admitted 02/2019 for fluid overload and hypokalemia. [facility]- [facility] Dizziness and trouble with balance in september 2019. Pulse regular. October 2019 on antibioitcs for cellulitis left foot. Fell around 07/21/2020. Head bruise .Have residual symptoms of headache . Patient denies chest pain since that time, sob, palpitations ..Patient still walks with walker (although less than before) and forgets names of things but not a new occurence. patient elevated d- dimer had a ct that was negative for pulmonary embolism.Had indwelling olivas Patient weight is down 5 pounds at 173 lbs .using compression stockings. Was hospitalized 12/2020 for acute blood loss anemia requiring blood transfusion and iron. She was noted to have iron deficiency and did receive 3 days of IV iron. She did have an EGD completed with no bleeding noted. ASA was held throughout her stay and continue to be held at discharge. Up to GI ifthey want to resume. Was discharged on Eliquis. No cardiac issues or symptoms. Denies any chest discomfort, dysnea, palpitations, dizziness, syncope, fatigue or claudication. No hospitalizations. Denies any PND or Orthopnea or leg swelling. Patient is compliant with his medications. Denies any bleeding issues. Ok to have suprapubic catheter placed. Is now moving into a assisted. No cardiac issues or symptoms. Denies any chest discomfort, dysnea, palpitations, dizziness, syncope, fatigue or claudication. No hospitalizations. Denies any PND or Orthopnea or leg swelling. Patient is compliant with medications. Denies any bleeding issues. Weight: 201 lbs Review of Systems: Review of Systems Constitutional: Positive for malaise/fatigue. Negative for decreased appetite, weight gain and weight loss. HENT: Negative for ear discharge, hearing loss and nosebleeds. Eyes: Positive for visual disturbance. Negative for blurred vision. Cardiovascular: Positive for leg swelling. Negative for chest pain, claudication, dyspnea on exertion, irregular heartbeat, near-syncope, palpitations, paroxysmal nocturnal dyspnea and syncope. Respiratory: Negative for cough, shortness of breath, sleep disturbances due to breathing, snoring and wheezing. Hematologic/Lymphatic: Negative for bleeding problem. Does not bruise/bleed easily. Skin: Positive for color change. Negative for poor wound healing. Musculoskeletal: Negative for back pain and myalgias. Gastrointestinal: Negative for bloating, heartburn and nausea. Genitourinary: Negative for hematuria. Neurological: Negative for excessive daytime sleepiness, dizziness, headaches, light-headedness, loss of balance and tremors. Psychiatric/Behavioral: Negative for altered mental status, depression and memory loss. Histories: Past Medical History: Diagnosis Date ??? A-fib (CMS/HCC) (HCC) ??? Anemia Anemia ??? Asthma Asthma ??? Atrial fibrillation (CMS/HCC) (HCC) ??? Chronic coronary artery disease Coronary artery disease ??? Diabetes mellitus (HCC) ??? Familial spastic paraplegia (CMS/HCC) (HCC) ??? Glaucoma Glaucoma ??? Glaucoma ??? Herpes zoster Herpes zoster ??? HX OTHER MEDICAL Transient ischemic attack (TIA) ??? HX OTHER MEDICAL Fx Sacrum 1999 ??? HX OTHER MEDICAL Lymphatic edema ??? HX OTHER MEDICAL Spinal Cerebellum Degeneration ??? HX OTHER MEDICAL URI/GERD; Outcome: improved ??? HX OTHER MEDICAL TIA ??? Hyperlipidemia Hyperlipidemia ??? Hypertension Hypertension ??? Lymphatic edema ??? Osteoarthritis Osteoarthritis ??? Pneumonia ??? Sleep apnea Past Surgical History: Procedure Laterality Date ??? BREAST SURGERY left breast lumpectomy ??? CHOLECYSTECTOMY 1998 Cholecystectomy ??? HERNIA REPAIR ??? HYSTERECTOMY 1986 Hysterectomy ??? OTHER SURGICAL HISTORY Ulcer removal from vocal cord ??? OTHER SURGICAL HISTORY Fx nose surgery ??? OTHER SURGICAL HISTORY 2003 Right Arthroscopy knee ??? OTHER SURGICAL HISTORY 2009 Ventral hernia repair with prolene mesh 01/26 ??? OTHER SURGICAL HISTORY 2013 URI/GERD: Medical Management ??? OTHER SURGICAL HISTORY ulcer removed from vocal cord ??? TOTAL ABDOMINAL HYSTERECTOMY W/ BILATERAL SALPINGOOPHORECTOMY 1980 Hysterectomy, total abdominal, BSO Family History Problem Relation Age of Onset ??? Breast cancer Mother Cancer, breast; /Cancer -breast; ??? Heart failure Father Congestive heart failure; ??? Hypertension Brother Hypertension; ??? Hypertension Brother Hypertension; Social History Tobacco Use ??? Smoking status: Never Smoker ??? Smokeless tobacco: Never Used Substance Use Topics ??? Alcohol use: No ??? Drug use: No Allergies: Allergies Allergen Reactions ??? Donepezil Other (See comments) Reaction: unknown reaction, , , Reaction: yeast infection, ??? Black Pepper ??? Diltiazem Edema, Diarrhea and Other (See comments) Reaction: edema, , Reaction: diarrhea, , , Reaction: ankles swell, ??? Fluticasone Other (See comments) Reaction: colon problems, ??? Metformin Diarrhea Reaction: diarrhea, , ??? Salmeterol Other (See comments) Reaction: colon problems, Medications: Current Outpatient Medications Medication Sig Dispense Refill ??? albuterol HFA (PROAIR HFA) 90 mcg/actuation inhaler inhale 2 puff by inhalation route every 4 -6 hours as needed 0 Inhaler 0 ??? amitriptyline (ELAVIL) 50 mg tablet Take 50 mg by mouth daily with dinner ??? anastrozole (ARIMIDEX) 1 mg tablet Take 1 mg by mouth nightly. ??? artificial tears (SYSTANE) 0.3 % gel Apply 1 drop to both eyes nightly as needed ??? aspirin (ASPIRIN LOW DOSE) 81 mg tablet take 1 tablet by oral route every day 0 0 ??? bromfenac 0.07 % drops Administer 1 drop into affected eye(s) ??? clopidogrel (PLAVIX) 75 mg tablet take 1 tablet by oral route every day 0 0 ??? cyanocobalamin (vitamin B-12) 1,000 mcg tablet take 1 tablet by oral route every day 0 0 ??? empagliflozin (JARDIANCE) 10 mg tablet Take 10 mg by mouth daily ??? esomeprazole DR (NexIUM) 40 mg capsule TAKE 1 CAPSULE DAILY 90 1 ??? flecainide (TAMBOCOR) 50 mg tablet TAKE 1 TABLET TWICE A DAY 180 tablet 4 ??? furosemide (LASIX) 40 mg tablet Take 1.5 tablets (60 mg total) by mouth daily 45 tablet 0 ??? latanoprost (XALATAN) 0.005 % ophthalmic solution instill 1 drop by ophthalmic route every day into affected eye(s) in the evening 0 0 ??? levothyroxine (SYNTHROID) 25 mcg tablet Take 25 mcg by mouth certified histologic technician before breakfast ??? menthol-zinc oxide (CALMOSEPTINE) 0.44-20.6 % ointment PRN 0 0 ??? metOLazone (ZAROXOLYN) 2.5 mg tablet Take 1 tablet (2.5 mg total) by mouth 2 (two) times a week(Patient taking differently: Take 2.5 mg by mouth 2 (two) times a week ) 30 tablet 1 ??? mirabegron ER (MYRBETRIQ) 25 mg tablet extended release 24 hr 25 mg daily ??? multivitamin (ONCE DAILY) tablet tablet take 1 tablet by oral route every day with food 0 0 ??? peg 400-propylene glycol (SYSTANE ULTRA) 0.4-0.3 % drops PRN (Patient taking differently: Administer 2 drops into both eyes as needed (dry eyes). ) 0 0 ??? potassium chloride ER (KLOR-CON) 10 mEq CR tablet Take 4 tablet/capsule (40 mEq total) by mouth2 (two) times a day ??? psyllium, aspartame, SF (METAMUCIL SF) 3.4 gram packet Take 1 packet by mouth 3 (three) times aday. 1 tsp. TID ??? rosuvastatin (CRESTOR) 10 mg tablet TAKE 1 TABLET BY MOUTH 1 TIME PER DAY AT BEDTIME 90 5 ??? SITagliptin (JANUVIA) 100 mg tablet take 1 tablet by oral route every day 0 0 ??? verapamil ER (VERELAN) 240 mg 24 hr capsule take 1 capsule by oral route every day 0 0 No current facility-administered medications for this visit. Vital Signs: Vitals BP 103/54 (BP Location: Right arm, Patient Position: Sitting) Pulse 68 Temp 36.4 ??C (97.6 ??F) Resp 18 Ht 165.1 cm (5' 5 ) Wt 72.6 kg (160 lb) BMI 26.63 kg/m?? Vitals: 08/06/21 1137 BP: 103/54 Pulse: 68 Resp: 18 Temp: 36.4 ??C (97.6 ??F) Wt Readings from Last 3 Encounters: 08/06/21 72.6 kg (160 lb) 03/05/21 68 kg (150 lb) 01/20/21 76.2 kg (168 lb) Body mass index is 26.63 kg/m??. Physical Exam: Physical Exam Constitutional: General: She is not in acute distress. Appearance: Normal appearance. She is well-developed. She is not diaphoretic. HENT: Mouth/Throat: Pharynx: No oropharyngeal exudate. Eyes: Conjunctiva/sclera: Conjunctivae normal. Pupils: Pupils are equal, round, and reactive to light. Neck: Vascular: No carotid bruit or JVD. Trachea: No tracheal deviation. Cardiovascular: Rate and Rhythm: Normal rate and regular rhythm. Pulses: Intact distal pulses. No decreased pulses. Heart sounds: S1 normal and S2 normal. Murmur heard. No gallop. Pulmonary: Effort: Pulmonary effort is normal. Breath sounds: No decreased breath sounds, wheezing, rhonchi or rales. Abdominal: General: Bowel sounds are normal. Palpations: Abdomen is soft. Skin: General: Skin is warm and dry. Neurological: Mental Status: She is alert and oriented to person, place, and time. Compression stockings in use. Cellulitic changes with venous stasis Labs: Lab Results Component Value Date INR 1.8 (H) 12/20/2020 INR 1.8 (H) 11/27/2020 INR 1.0 01/17/2020 Lab Results Component Value Date PT 19.5 (H) 12/20/2020 PT 20.4 (H) 11/27/2020 PT 11.4 01/17/2020 Lab Results Component Value Date TSH 5.72 (H) 12/24/2020 FREET4 1.30 12/24/2020 Lab Results Component Value Date BILIRUBINU Negative 06/14/2016 AST 19 07/28/2021 ALT 27 07/28/2021 ALKPHOS 100 07/28/2021 ALBUMIN 4.0 07/28/2021 Lab Results Component Value Date SODIUM 137 07/28/2021 POTASSIUM 3.6 07/28/2021 CHLORIDE 98 07/28/2021 CO2 28 07/28/2021 ANIONGAP 10 07/28/2021 GLUCOSEUR 4+ (A) 03/12/2021 Lab Results Component Value Date BNP 14 08/30/2015 Lab Results Component Value Date SODIUM 137 07/28/2021 SODIUM 133 (L) 03/12/2021 SODIUM 135 12/28/2020 POTASSIUM 3.6 07/28/2021 POTASSIUM 3.2 (L) 03/12/2021 POTASSIUM 4.6 12/28/2020 CHLORIDE 98 07/28/2021 CHLORIDE 98 03/12/2021 CHLORIDE 104 12/28/2020 CO2 28 07/28/2021 CO2 26 03/12/2021 CO2 21 (L) 12/28/2020 BUNSER 31 (H) 07/28/2021 BUNSER 29 (H) 03/12/2021 BUNSER 19 12/28/2020 CREATININE 0.70 07/28/2021 CREATININE 0.69 03/12/2021 CREATININE 0.67 12/28/2020 GFRNAA 86 07/28/2021 GFRNAA 81 03/12/2021 GFRNAA 82 12/28/2020 GLUCOSE 131 07/28/2021 CALCIUM 11.1 (H) 07/28/2021 CALCIUM 10.3 03/12/2021 CALCIUM 9.2 12/28/2020 ALBUMIN 4.0 07/28/2021 ALBUMIN 3.7 03/12/2021 ALBUMIN 3.6 12/23/2020 PHOS 2.4 12/24/2020 PHOS 2.1 (L) 12/23/2020 PHOS 2.1 (L) 12/22/2020 Lab Results Component Value Date SODIUM 137 07/28/2021 POTASSIUM 3.6 07/28/2021 CHLORIDE 98 07/28/2021 CO2 28 07/28/2021 ANIONGAP 10 07/28/2021 BUNSER 31 (H) 07/28/2021 CREATININE 0.70 07/28/2021 GLUCOSE 131 07/28/2021 CALCIUM 11.1 (H) 07/28/2021 BILITOT 0.3 07/28/2021 PROT 6.8 07/28/2021 ALBUMIN 4.0 07/28/2021 ALKPHOS 100 07/28/2021 ALT 27 07/28/2021 AST 19 07/28/2021 Lab Results Component Value Date WBC 8.5 07/28/2021 HGB 16.7 (H) 07/28/2021 HCT 50.7 (H) 07/28/2021 LABPLAT 238 07/28/2021 MPV 10.6 07/28/2021 RBC 5.82 (H) 07/28/2021 MCV 87.1 07/28/2021 MCH 28.7 07/28/2021 MCHC 32.9 07/28/2021 RDWCV 14.3 07/28/2021 RDWSD 45.6 07/28/2021 NRBCABS 0.00 07/28/2021 Lab Results Component Value Date CHOL 112 08/18/2015 TRIG 175 (H) 08/18/2015 HDL 27 (L) 08/18/2015 Testing: Tests: 08/2015 chol 112 Tri 175 HDL 27 LDL 50,TSH 3.65 10/2015 creat .8 AST 17 ALT 25 BNP 24.4 Chol 100 LDL 32, HDL 25 TSH 8.48 free T4 .88. 09/2015 creat .90, BNP 14, 11/2015 chol 100 tri 215 LDL 32, HDL 25 TSH 8.48 Creat .80 09/2018 Last 2D echocardiogram showed EF= 70-75% MR trival ,Mild calcification and thickening of mitral and aortic concentric LVH, mild PHT , borderline mild aortic stenosis Last stress thallium was negative for ischemia with EF=76% in 12/2015 cardionet in 12/2015 was neagtive for AF Lab 02/12/2016 Troponin creat .74 K+ 3.5 HGB 12.7 06/14/2016 K+ 3.6 gluc 219 06/14/2016 Ct negative for PE 01/2017 Carotid ultrasound showed insignificant disease on the right and insignificant disease on the left. 12/30/2016 chol 89 Tri 114 HDL 34 LDL 32 TSH 3.55 creat .91 01/2017 labs : CR 1.1, K 3.0 BNP 74 08/2017 labs : CR 0.8, K 3.6 BNP 87 02/2018 labs : CR 0.8, K 4.0 pro BNP 58 10/2019 pro BNP 78 05/2020 labs ; Cr 1.12, TSH 2.58 EK12/12/2015 SR with PRWP 01/2016 Cardionet -negative. EKG in 01/2016 showed nSR, QTc 450 msec 02/12/2016 cardionet SR with 1st degree av block. SR borderline left axis deviation EKG in 12/2016 showed NSR, LAD , QRS duration 100 EKG in 03/2018 showed SR , moderate IVCD EKG 12/21/2020 showed SR Echocardiogram: 09/30/2020 Left Ventricle: ??? Left ventricle is normal in size. ? Normal global??systolic left ventricular function. ? EF range is 65 % -70 %. ? Left ventricle wall thickness is normal. ? There are no regional wall motion abnormalities. ? NM Myocardial Perfusion: 10/13/2020 Findings: Stress portion of the exam was monitored by the cardiology service. Stress achieved via Lexiscan 0.4 mg. There are no stress induced or fixed perfusion defects. EF = 75%. EDV= 68 cc. There are no wall motion abnormalities. Stress Test Lexiscan: 10/13/2020 Overall Impression: NO ISCHEMIC ECG CHANGES NOTED NUCLEAR IMAGES PENDING Assessment: 1 a-fib, paroxysmal , first episode in 2015 on plavix and ASA. Omar 2 score 5.cardionet in 12/2015 was negative for A fib . Cardionet 01/2016 no clinical recurrence of AF. episode of AF in 2017 . OAC temporarily stopped because of large gluteal bleed in August 2020. Now back on due to Large saddle PE. 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 8- Acute blood loss anemia requiring blood transfusion and iron 12/2020. Plan: Same meds including Eliquis. Continue tight control of blood pressure and cholesterol. BP diary and pulse and daily weights Continue diet, and weight reduction. daily weight Need to use Leg pumps routinely. Leg elevation and compression stocking. Ok to hold Eliquis for suprapubic catheter placement. RTC in 9 months Diagnoses and all orders for this visit: PAF (paroxysmal atrial fibrillation) (CMS/HCC) (HCC) (Primary) Chronic diastolic congestive heart failure (CMS/HCC) (HCC) Pure hypercholesterolemia Primary hypertension Return in about 9 months (around 05/08/2022), or if symptoms worsen or fail to improve. 08/06/2021 @ 11:56 AM Ana Lilia Rain NP Cc:Theresa Camargo MD documented in this encounter Miscellaneous Notes * Addendum Note - Rosa Srinivasan - 08/06/2021 11:15 AM CDTAddended by: ROSA SRINIVASAN on: 08/06/2021 12:02 PM Modules accepted: Orders documented in this encounter Plan of Treatment Not on file documented as of this encounter Visit Diagnoses Diagnosis PAF (paroxysmal atrial fibrillation) (CMS/HCC) (HCC)- Primary Atrial fibrillation Chronic diastolic congestive heart failure ([facility]) ([facility]) Pure hypercholesterolemia Primary hypertension Unspecified essential hypertension documented in this encounter Discontinued Medications Medication Sig Discontinue Reason Start Date End Da te verapamil SR (CALAN SR) 120 mg CR tablet Take 120 mg by mouth nightly Duplicate order 08/06/2021 documented as of this encounter Care Teams Casting Room Helper Relationship Specialty Start Date End Date Theresa Camargo MD PCP - General 09/29/18 12/05/22 Laz Valencia MD Consulting Physician Cardiology 03/22/19 12/05/22 Migue Herman MD Consulting Physician Urology 05/16/19 Sonny Palmer MD Surgeon General Surgery 05/16/19 documented as of this encounter
--- OUTSIDE RECORDS SUMMARY | 2024-05-26 12:58 | XMS_ITS | Encounter Summary ---
Author Organization [facility] Healthcare Address [address] [place] [address] Care Team Providers Care Cigarette Lighter Repairer Name Role Phone Theresa Camargo MD Primary Care Provider Laz Valencia MD Unavailable [phone] Migue Herman MD Unavailable Sonny Palmer MD Unavailable [phone] Encounter Details Date Type Department Care Team (Late st Contact Info) Description 03/12/2021 12:15 PM CDT Lab [address] [address] [place] [address] [address] Discharge Disposition: Discharge to home [...] any clubs o r organizations such as hindu groups, unions, fraternal or athletic groups, or [...] on file 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 [employer] Gender Identity Not on file Sexual Orientation Not on file documented as of this encounter Discharge Disposition Disposition Code Departure Means Destination Discharge to home or self care documented in this encounter Plan of Treatment Not on file documented as of this encounter Procedures Procedure Name Priority Date/Time Associated Diagnosis Comments EGFR Routine 03/12/2021 12:13 PM CDT DIFFERENTIAL AUTO Routine 03/12/2021 12: 13 PM CDT URINALYSIS AND REFLEX TO MICROSCOPIC Routine 03/12/2021 12:13 PM CDT CBC WITH AUTO DIFFERENTIAL Routine 03/12/2021 12:13 PM CDT URINALYSIS, MICROSCOPIC ONLY Routine 03/12/2021 12:13 PM CDT COMPREHENSIVE METABOLIC PANEL Routine 03/12/2021 12:13 PM CDT documented in this encounter Results * (ABNORMAL) Urinalysis, microscopic only (03/12/2021 12:13 PM CDT) WBC, ur >50(A) 0 - 5 /HPF [facility] ([place]) RBC, ur 6-10(A) 0 - 2 /HPF [facility] ([place]) Bacteria, ur 4+(A) [facility] ([place]) Mucous, ur Present(A) [facility] ([place]) Urine, clean voided 03/12/2021 12:13 PM CDT 03/12/2021 2:06 PM CDT us Nelson Ross MD LAB URINE ORDERABLES Final Result [facility] ([place]) [facility] Department of Laboratories [place], [place] [address] * eGFR (03/12/2021 12:13 PM CDT) Pathologist [facility] eGFR 81 mL/min/1.7 3 m2 [facility] ([place]) Comment: Interpretive Data Reference Interval Normal ?>/= 90 mL/min/1.73m2 Mildly decreased* ? 60 - 89 mL/min/1.73m2 Mildly to moderately decreased ?45 - 59 mL/min/1.73m2 Moderately to severely decreased ??30 - 44 mL/min/1.73m2 Severely decreased ?15 - 29 mL/min/1.73m2 Kidney Failure ?< 15 ??mL/min/1.73m2 *Relative to young adult level Estimated glomerular filtration rate is determined by the CKD-EPI equation recommended by the National Kidney Foundation (KDIGO 2012 Clinical Practice Guideline for the Evaluation and Management of Chronic Kidney Disease. Kidney Intnl Suppl May 2012;3:1). The CKD-EPI equation should not be used for patients with unstable renal function and has not been validated in children and those over 70. Current interpretive data was last reviewed 2020 Blood 03/12/2021 12:1 3 PM CDT 03/12/2021 12:34 PM CDT us Nelson Ross MD LAB BLOOD ORDERABLES Final Result [facility] ([place]) [facility] Department [place] [address] * (ABNORMAL) Differential, auto (03/12/2021 12:13 PM CDT) Neutrophil abs 7.5(H) 1.7 - 6.5 K/cumm [facility] ([place]) Imm gran abs 0.1 0.0 - 0.1 K/cumm [facility]) Lymphocyte abs 1.4 0.8 - 3.3 K/cumm [facility] ([place]) Monocyte abs 2.7(H) 0.2 - 0.8 K/cumm [facility]) Eosinophil abs 0.2 0.0 - 0.5 K/cumm [facility] ([place]) Basophil abs 0.1 0.0 - 0.1 K/cumm [facility]) Neutrophil pct 63.5 % [facility] ([place]) Comment: Interpretive [...] was last revised on 2017. Monocyte pct 22.4 % [facility] ([place]) Comment: Interpretive Data Percent cell count reference ranges are not reported, since discordance with absolute values may lead to misinterpretation of CBC data. Current Interpretive Data was last revised on 2017. Eosinophil pct 1.4 % [facility] ([place]) Comment: Interpretive Data Percent cell count reference ranges are not reported, since discordance with absolute values may lead to misinterpretation of CBC data. Current Interpretive Data was last revised on 2017. Basophil pct 0.4 % [facility] ([place]) Comment: Interpretive Data Percent cell count reference ranges are not reported, since discordance with absolute values may lead to misinterpretation of CBC data. Current Interpretive Data was last revised on 2017. Blood 03/12/2021 12:1 3 PM CDT 03/12/2021 12:34 PM CDT us Nelson Ross MD LAB BLOOD ORDERABLES Final Result [facility] ([place]) [facility] Department [place] [address] * (ABNORMAL) Urinalysis reflex to microscopic (03/12/2021 12:13 PM CDT) Color, ur Yellow Yellow [facility] ([place]) Clarity, ur Turbid(A) Clear [facility] ([place]) Specific gravity, ur 1.012 1.003 - 1.030 [facility]) pH, urine 6.5 [facility]) Protein, ur ql Trace Negative [facility]) Glucose, ur ql 4+(A) Negative [facility] ([place]) Ketones, ur Negative Negative [facility] ([place]) Bilirubin, ur Negative Negative [facility]) Blood, ur 1+(A) Negative [facility] ([place]) Urobilinogen, ur <2.0 <2.0 mg/dL [facility] ([place]) Nitrite, ur Negative Negative [facility]) Leukocyte esterase, ur 4+(A) Negative [facility] ([place]) UA reflex comment Reflex to microscopic UA will be performed. [facility] ([place]) Urine, clean voided 03/12/2021 12:13 PM CDT 03/12/2021 2:06 PM CDT Narrative [facility] ([place]) - 03/12/2021 2:13 PM CDT ?? Urine pH is affected by diet, medications, systemic acid-base disturbances, and renal tubular function. ??pH may affect urinary stone formation. ??For example, urine pH below 6.0 may help reduce the tendency for calcium phosphate stones and pH greater than 6.0 may reduce the tendency for uric acid stone formation. Source: [facility]. Last revised 05-29-2017 us Nelson Ross MD LAB URINE ORDERABLES Final Result [facility] ([place]) [facility] [place] [address] * (ABNORMAL) Comprehensive metabolic panel (03/12/2021 12:13 PM CDT) Sodium 133(L) 135 - 145 mmol/L [facility]) Potassium, pl 3.2(L) 3.3 - 4.9 mmol/L [facility]) Chloride 98 97 - 110 mmol/L [facility]) CO2 26 22 - 32 mmol/L [facility] Anion gap 9 2 - 15 mmol/L [facility]) BUN 29(H) 8 - 25 mg/dL [facility]) Creatinine 0.69 0.60 - 1.10 mg/dL [facility]) Glucose 126 70 - 199 mg/dL [facility]) [...] interpretive data was last revised 2017. Calcium 10.3 8.5 - 10.3 mg/dL [facility]) Bilirubin, total <0.2 0.1 - 1.2 mg/dL [facility] ([place]) Protein, pl 6.9 6.5 - 8.5 g/dL [facility]) Albumin 3.7 3.5 - 5.0 g/dL [facility]) Alk phos 86 40 - 130 Units/L [facility]) ALT 39 7 - 45 Units/L [facility]) AST 34 10 - 45 Units/L [facility]) Blood 03/12/2021 12:1 3 PM CDT 03/12/2021 12:34 PM CDT us Nelson Ross MD LAB BLOOD ORDERABLES Final Result [facility] ([place]) [facility] Department [place] [address] * (ABNORMAL) CBC with auto differential (03/12/2021 12:13 PM CDT) WBC 11.9(H) 3.8 - 9.9 K/cumm [facility] ([place]) Hgb 13.3 11.9 - 15.5 g/dL [facility]) Hct 43.8 35.6 - 45.5 % [facility]) Plt 323 150 - 400 K/cumm [facility]) MPV 10.3 9.1 - 12.3 fL [facility]) RBC 5.93(H) 3.90 - 5.20 M/cumm [facility]) MCV 73.9(L) 81.3 - 96.4 fL [facility]) MCH 22.4(L) 27.1 - 33.3 pg [facility]) MCHC 30.4(L) 32.3 - 35.7 g/dL [facility]) RDW CV 23.2(H) 11.1 - 14.9 % [facility]) RDW SD 59.6(H) 35.7 - 48.1 fL [facility]) NRBC abs 0.00 0.00 - 0.01 K/cumm [facility] ([place]) Blood 03/12/2021 12:1 3 PM CDT 03/12/2021 12:34 PM CDT us Nelson Ross MD LAB BLOOD ORDERABLES Final Result [facility] ([place]) [facility] [place] [address] documented in this encounter Visit Diagnoses Not on filedocumented in this encounter Care Teams Cigarette Lighter Repairer Relationship Specialty Start Date End Date Theresa Camargo MD PCP - General 09/29/18 12/05/22 Laz Valencia MD Consulting Physician Cardiology 03/22/19 12/05/22 Migue Herman MD Consulting Physician Urology 05/16/19 Sonny Palmer MD Surgeon General Surgery 05/16/19 documented as of this encounter
--- OUTSIDE RECORDS SUMMARY | 2024-05-26 12:58 | XMS_ITS | Encounter Summary ---
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 PAF (paroxysmal atrial fibrillation) (CMS/HCC) (HCC) Procedures Transthoracic Echo (TTE) Complete W Doppler/CF Olaf Quintero MD [address] [address] Phone: tel: fax: [facility] Referral ID Status Reason Start Date Expiration Date Visits Re quested Visits Authorized [id number] Closed 12/06/2022 01/05/2024 1 1 Encounter Details Date Type Department Care Team (Latest Contact Info) Description 02/10/2023 11:15 AM CDT Ancillary Procedure [facility] Cardiology [address] [place] [address] 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 PAF (paroxysmal atrial fibrillation) (CMS/HCC) (HCC) documented in this encounter Results * TRANSTHORACIC ECHO (TTE) COMPLETE W DOPPLER/CF WO CONTRAST (02/10/2023 12:24 PM CDT) Anatomical Region Laterality Modality Ultrasound 02/10/2023 11:4 4 AM CDT Narrative 02/10/2023 1:23 PM CDT [facility] Cardiology [address] [address] [address] [facility], [place] [address] P:[phone] P:[phone] Echocardiographic Report ADDENDUM Patient Name: LOC ANDERSON : 1940 Study Date: 02/10/2023 11:44:39 AM Gender: F Tech: Location: [place] Ref.Provider: OLAF QUINTERO Height(Cm): 165 BSA: 1.81 [...] Findings: Interpretation Site: Exam was interpreted at [facility]. Left Ventricle: Normal left ventricular systolic function. [...] regurgitation. Electronically Signed By: Dr. Yoshi Shah [facility] 2023-02-10 13:28:11 CDT Procedure Note Yoshi Shah MD - 02/10/2023 [facility] Cardiology [address], [place] [address] [address] [facility] [address], [place] [address] P:[phone] P:[phone] Echocardiographic Report ADDENDUM Patient Name: Karl ANDERSON ID: [id number] : [id number] Date: 02/10/2023 11:44:39 AM Gender: FAccession #: [id number] Tech: Location: [place] Ref.Provider: OLAF QUINTEROHeight(Cm): 165 BSA: 1.81Weight(Kg): 71.7 [...] Findings: Interpretation Site: Exam was interpreted at [facility]. Left Ventricle: Normal left ventricular systolic function. [...] regurgitation. Electronically Signed By: Dr. 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
--- OUTSIDE RECORDS SUMMARY | 2024-05-26 12:58 | XMS_ITS | Encounter Summary ---
Author Organization [facility] Address [address] [place] [address] Care Team Providers Care Wood Casket Maker Name Role Phone Theresa Camargo MD Primary Care Provider [phone] Laz Valencia MD Unavailable [phone] Migue Herman MD Unavailable [phone] Sonny Palmer MD Unavailable [phone] Encounter Details Date Type Department Care Team (Late st Contact Info) Description 03/01/2021 Telephone [facility] Gastroenterology at [address] [place] [address] Aruna Patrick MA Social History [...] week 12/25/2020 How often do you attend [facility] or zoroastrian services? Never 12/25/2020 Do you belong to any clubs o r organizations such as latter-day groups, unions, fraternal or athletic groups, or [...] on file Legal Sex Female 6:56 PM [employer] Gender Identity Not on file Sexual Orientation Not on file documented as of this encounter Miscellaneous Notes * Telephone Encounter - Aruna Patrick MA - 03/01/2021 12:12 PM CDT Sent message through [employer] with your recommendations. Called daughter Ange to scheduled and go over message and she verbalized her understanding. Pt has been scheduled for an office visit with youlexi Friday03/05/2021 at 9:15 am. Daughter states that pt has been eating smaller meals but they have not tried protein drinks. She adds that she has been loosing weight steadily, she has been taking water pills. documented in this encounter Plan of Treatment Not on file documented as of this encounter Visit Diagnoses Not on filedocumented in this encounter Care Teams Wood Casket Maker Relationship Specialty Start Date End Date Theresa Camargo MD PCP - General 09/29/18 12/05/22 Laz Valencia MD Consulting Physician Cardiology 03/22/19 12/05/22 Migue Herman MD Consulting Physician Urology 05/16/19 Sonny Palmer MD Surgeon General Surgery 05/16/19 documented as of this encounter
--- OUTSIDE RECORDS SUMMARY | 2024-05-26 12:59 | XMS_ITS | Encounter Summary ---
Author Organization [facility] Healthcare Address [address] [place] [address] Care Team Providers Care Breakfast Supervisor Name Role Phone Destiney Camargo MD Primary Care Provider Landon Valencia MD Unavailable [phone] Migue Herman MD Unavailable [phone] Sonny Palmer MD Unavailable [phone] Reason for Visit * Reason Comments Weakness - Generalized Encounter Details Date Type Department Care Team (Late st Contact Info) Description 12/20/2020 3:09 PM CDT - 12/28/2020 3:29 PM CDT Hospital Encounter [facility] IMU [address] [place] [address] Julio Mccabe MD [facility] [address] [address] Wayne Snow MD [address] [place] [address] [place] [address] Nina Larsen MD [address] [place] [address] [place] [address] Anemia, unspecified type (Primary Dx); Adverse effect of anticoagulant, initial encounter; Constipation by delayed colonic transit; Urinary tract infection associated with indwelling urethral catheter, initial encounter (HCC); Pressure injury of contiguous region involving back and buttock, stage 2, unspecified laterality (HCC); Occult blood in stools; Chronic diastolic (congestive) heart failure (HCC); Constipation, unspecified constipation type; Normocytic anemia; Hypokalemia Discharge Disposition: Discharge to home, home health skilled care Social History Tobacco Use Types Packs/Day [...] often do you attend chur ch or jew services? 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 Gender Identity Not on file Sexual Orientation Not on file documented as of this encounter Last Filed Vital Signs Vital Sign Reading Time Taken Comments Blood Pressure 122/50 12/28/2020 12:20 PM CDT Pulse 68 12/28/2020 11:25 AM CDT Temperature 36.4 ??C (97.5 ??F) 12/28/2020 11:25 AM C DT Respiratory Rate 16 12/28/2020 11:25 AM CDT Oxygen Saturation 99% 12/28/2020 11:25 AM CDT Inhaled Oxygen Concentration - - Weight 77 kg (169 lb 11.2 oz) 12/21/2020 12:00 A M CDT Height 165.1 cm (5' 5 ) 12/21/2020 12:00 AM CDT Body Mass Index 28.24 12/21/2020 12:00 AM CDT documented in this encounter Discharge Diagnoses Diagnosis Iron deficiency anemia, unspecified - IRON DEFICIENCY ANEMIA, UNSPECIFIED 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 Chronic diastolic (congestive) heart failure ([facility]) - CHRONIC DIASTOLIC (CONGESTIVE) HEART FAILURE Urinary tract infection, site not specified - URINARY TRACT INFECTION, SITE NOT SPECIFIED Hypothyroidism, unspecified - HYPOTHYROIDISM, UNSPECIFIED Hyperlipidemia, unspecified - HYPERLIPIDEMIA, UNSPECIFIED Other disorders of phosphorus metabolism - OTHER DISORDERS OF PHOSPHORUS METABOLISM Hypokalemia - HYPOKALEMIA Hypopotassemia Type 2 diabetes mellitus with diabetic neuropathy, unspecified ([facility]) - TYPE 2 DIABETES MELLITUS WITH DIABETIC NEUROPATHY, UNSPECIFIED Hypertensive heart disease with heart failure ([facility]) ([facility]) - HYPERTENSIVE HEART DISEASE WITH HEART FAILURE Unspecified hypertensive heart disease with heart failure Atherosclerotic heart disease of [place] coronary artery without angina pectoris - ATHEROSCLEROTIC HEART DISEASE OF [place] CORONARY ARTERY WITHOUT ANGINA PECTORIS Paroxysmal atrial fibrillation ([facility]) ([facility]) - PAROXYSMAL ATRIAL FIBRILLATION Atrial fibrillation Polyp of stomach and duodenum - POLYP OF STOMACH AND DUODENUM Fecal impaction ([facility]) ([facility]) - FECAL IMPACTION Other impaction of intestine Generalized anxiety disorder - GENERALIZED ANXIETY DISORDER Other fecal abnormalities - OTHER FECAL ABNORMALITIES Pseudomonas (aeruginosa) (mallei) (pseudomallei) as the cause of diseases classified elsewhere - PSEUDOMONAS (AERUGINOSA) (MALLEI) (PSEUDOMALLEI) THE CAUSE OF DISEASES CLASSIFIED ELSEWHERE Contact with and (suspected) exposure to covid-19 - CONTACT WITH AND (SUSPECTED) EXPOSURE TO COVID-19 Pressure ulcer of unspecified part of back, stage 2 (HCC) - PRESSURE ULCER OF UNSPECIFIED PART OF BACK, STAGE 2 [facility] (current) use of anticoagulants - CUSTODIAL (CURRENT) USE OF ANTICOAGULANTS Long-term (current) use of anticoagulants 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 insulin (HCC) - COMPARATOR OPERATOR (CURRENT) USE OF INSULIN 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 aromatase inhibitors - CUSTODIAL (CURRENT) USE OF AROMATASE INHIBITORS [facility] (current) use of aspirin - CUSTODIAL (CURRENT) USE OF ASPIRIN Other tank terminal gauger (current) drug therapy - OTHER CUSTODIAL (CURRENT) DRUG THERAPY Family history of malignant neoplasm of breast - FAMILY HISTORY OF MALIGNANT NEOPLASM OF BREAST Personal history of malignant neoplasm of breast - PERSONAL HISTORY OF MALIGNANT NEOPLASM OF BREAST Personal history of pulmonary embolism - PERSONAL HISTORY OF PULMONARY EMBOLISM Personal history of transient ischemic attack (TIA), and cerebral infarction without residual deficits - PERSONAL HISTORY OF TRANSIENT ISCHEMIC ATTACK (TIA), AND CEREBRAL INFARCTION WITHOUT RESIDUAL DEFICI documented in this encounter Discharge Summaries * Nina Larsen MD - 12/28/2020 12:57 PM CDT Inpatient Discharge Summary BRIEF OVERVIEW Admitting Provider: Wayne Snow MD Discharge Provider: Nina Larsen MD Primary Care Physician at Discharge: Destiney Camargo MD [phone] Admission Date: 12/20/2020 Discharge Date: 12/28/2020 Admission Location: [facility] Problems/Diagnoses: Principal Problem: Normocytic anemia Active Problems: Urinary tract bacterial infections Paroxysmal atrial fibrillation (CMS/HCC) (HCC) History of pulmonary embolism Type 2 diabetes mellitus (HCC) Chronic diastolic (congestive) heart failure (HCC) Anxiety CAD (coronary artery disease) HTN (hypertension) Occult blood in stools Hypophosphatemia Anxiety Constipation Pain and swelling of left wrist Resolved Problems: Hypokalemia DETAILS OF HOSPITAL STAY Presenting Problem/History of Present Illness: Patient is an 80-year-old woman with known diastolic CHF, hypertension, paroxysmal atrial fibrillation, history of pulmonary embolism and diabetes who presented with generalized weakness for several days. No alleviating factor hearing factors. No nico hematochezia or melena. No chest pain or dyspnea. She denied focal weakness, headaches and seizure-like activity. No diarrhea. In the emergency room, she was noted to have low normal blood pressure. She was also noted to have a hemoglobin droppedto 7.6 in 1 month as well as low potassium. With her findings, she was admitted for further evaluation and treatment. Hospital Course: Patient was admitted to IMU where she remained for the duration of her stay. With regards to anemia, she was seen by both GI and Hematology. She was noted to have iron deficiency and did receive 3 days of IV iron. She did have an EGD completed with no bleeding noted. ASA with help throughout her stay and continue to be held at discharge. Hemoglobin did stabilize and was 9.3 by discharge. She was placed on Protonix also continued at discharge as well as continued on vitamin B12. Patient to continue to follow as an outpatient. She additionally was noted to have a urinary tract infection and was followed by infectious disease. She did complete a 6 day course of IV cefepime followed by oral amoxicillin to complete treatment.Patient with indwelling Schmitt catheter that remained at discharge. She was treated for her paroxysmal atrial fibrillation and stable on flecainide. Eliquis initially held but then resumed with no issues. Blood pressure was monitored throughout her stay with patient stable on problem ill, spironolactone and furosemide by discharge. She additionally continued rosuvastatin for known CAD. Glucose levels were monitored with patient only continued on home Invokana and other home oral medications held. Patient was advised to continue to hold other home medication and to monitor as an outpatient. She did require some replacement of potassium which resolved with continued potassium replacement. Once other issues were stabilized, patient was noted to have constipation. She was given Linzess with increasing dose as well as Dulcolax suppositories and milk of magnesia. She continued to have constipation subsequently receiving soapsuds enema. Without significant relief, GI did take patient to the GI lab on 12/27/2020 for flexible sigmoidoscopy and require disimpaction. Subsequently patient was having regular bowel movements. She is advised continue bowel regimen and monitor as an outpatient. She also had some issues with anxiety and did receive some Xanax with precautions to not take on a regular basis. She was seen by physical and occupational therapy with recommendation for SNF but patient declined preferring to go home with home health. With the patient stable, she was able to discharge home on December 28, 2020. Active Issues Requiring Follow-up: Active treatment of chronic constipation. Monitoring of other chronic health problems. Test Results Pending at Discharge: None. Operative Procedures Performed: Procedure(s): SIGMOIDOSCOPY Other Procedures: None. Pertinent Test Results: [facility] [[email or web address] LOC Salazar ( ) as of 12/28/2020 18:37 Ref. Range 12/28/2020 04:36 Sodium Latest Ref Range: 135 - 145 mmol/L 135 Potassium, pl Latest Ref Range: 3.3 - 4.9 mmol/L 4.6 Chloride Latest Ref Range: 97 - 110 mmol/L 104 CO2 Latest Ref Range: 22 - 32 mmol/L 21 (L) Anion gap Latest Ref Range: 2 - 15 mmol/L 10 BUN Latest Ref Range: 8 - 25 mg/dL 19 Creatinine Latest Ref Range: 0.60 - 1.10 mg/dL 0.67 Glucose Latest Ref Range: 70 - 199 mg/dL 112 Calcium Latest Ref Range: 8.5 - 10.3 mg/dL 9.2 eGFR Latest Units: mL/min/1.73 m2 82 WBC Latest Ref Range: 3.8 - 9.9 K/cumm 8.3 Hgb Latest Ref Range: 11.9 - 15.5 g/dL 9.3 (L) Hct Latest Ref Range: 35.6 - 45.5 % 32.8 (L) Plt Latest Ref Range: 150 - 400 K/cumm 277 MPV Latest Ref Range: 9.1 - 12.3 fL 10.2 RBC Latest Ref Range: 3.90 - 5.20 M/cumm 4.07 MCV Latest Ref Range: 81.3 - 96.4 fL 80.6 (L) MCH Latest Ref Range: 27.1 - 33.3 pg 22.9 (L) MCHC Latest Ref Range: 32.3 - 35.7 g/dL 28.4 (L) RDW CV Latest Ref Range: 11.1 - 14.9 % 19.9 (H) RDW SD Latest Ref Range: 35.7 - 48.1 fL 57.6 (H) NRBC abs Latest Ref Range: 0.00 - 0.01 K/cumm 0.00 inal laboratory results: Microbiology: COVID-19 RNA negative. H pylori negative. Urine culture positive for Pseudomonas aeruginosa and 2 species??of Enterococcus faecalis Radiology: Chest x-ray: 1. No acute findings or infiltrate Abdominal x-ray: IMPRESSION: Very large amount of stool throughout the colon all the way to the rectum. Left wrist x-ray: IMPRESSION: 1. 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 2. No fracture or bone destruction. ?? 3. Diffuse swelling CT abdomen/pelvis: IMPRESSION: Moderate amount of stool throughout the colon likely due to underlying constipation. Otherwise, no acute findings to explain the patient's current symptoms. Carotid Dopplers: IMPRESSION: ?? 1. Velocities correspond to a less than 50percent diameter stenosis of the right ICA. ?? 2. Velocities correspond to a less than 50percent diameter stenosis of the left ICA. ?? 3. Antegrade direction of flow of the bilateral vertebral arteries. Discharge Details Physical Exam at Discharge: Discharge Condition: stable Pulse: 68 Resp: 16 BP: 122/50 Temp: 36.4 ??C (97.5 ??F) Weight: 77 kg (169 lb 11.2 oz) Pertinent Exam Findings at Discharge: General: Awake and alert. No acute distress. HEENT: EOMI, MONTY. Sclerae non icteric. Mucous membranes moist. Neck: Supple without lymphadenopathy. No carotid bruits. CV: Heart regular rate and rhythm. No murmur. Respiratory: Lungs clear to auscultation bilaterally. No rales, rhonchi or wheezes. GI: Abdomen with bowel sounds present, soft, nontender. No masses palpated. : Schmitt catheter in place with urine clear. Skin: No rashes or lesions. Extremities: No edema of lower extremities. Musculoskeletal: No joint erythema, edema or tenderness. Neurologic: Oriented x 3. Speech clear. Moving all extremities. Decreased mobility. Psychiatric: Appropriate mood and affect. Discharge Disposition: Discharge to home with home health. Code Status at Discharge: Full code. Discharge Instructions: She is to follow-up with her primary physician as well as Cardiology as scheduled. Additional discharge instructions as noted below. Activity Instructions Discharge activity: Resume normal activity Diet Instructions Adult Discharge Diet Diet Type: Return to previous diet Other Instructions Ambulatory referral to Home Health Service Line: Home Health Primary disciplines requested: Physical Therapy Detention Home Health Services: Therapy to Eval/ Treat Physician to follow patient's care (the person listed here will be responsible for signing ongoing orders): PCP Requested Start of Care Date: Tomorrow Special instructions (labs, wound care, etc.): With home RN/PT I attest that I or another qualified licensed provider saw the patient 90 days prior to or 30 days post admission and this face to face encounter meets the necessary Home Health requirements. The face to face encounter occurred on (date): 12/25/2020 The encounter with the patient was in whole, or in part, for the following medical condition, whichis the primary reason for home health care. (List medical condition): Yes I certify that, based on my findings, the following services are medically necessary skilled home health services: Therapy to Eval/ Treat Clinical findings that support the need for home care: Medical condition requiring skilled assessment/education I certify that my clinical findings support patient's homebound status. Homebound criteria met because: Poor endurance Call provider for: Temperature -Temperature greater than 101 degrees F Call provider for: difficulty breathing or chest pain Call provider for: extreme fatigue Call provider for: persistent dizziness or light-headedness Call provider for: persistent nausea or vomiting Call provider for: headache, visual disturbances, weakness and speech changes Special Instructions Notify your physician if any diarrhea or constipation. Discharge Medications: Current Medications TAKE these medications ALPRAZolam 0.25 mg tablet Take 1 tablet (0.25 mg total) by mouth 2 (two) times a day as needed for anxiety Commonly known as: XANAX amitriptyline 25 mg tablet Take 50 mg by mouth nightly For: neuropathic pain Commonly known as: ELAVIL amoxicillin 500 mg tablet/capsule Take 1 tablet/capsule (500 mg total) by mouth 3 (three) times a day for 5 doses For: Urinary Tract/Genitourinary Infection Commonly known as: AMOXIL anastrozole 1 mg tablet Take 1 mg by mouth daily For: prevention of breast cancer in high risk women Commonly known as: ARIMIDEX apixaban 5 mg tablet Take 1 tablet (5 mg total) by mouth 2 (two) times a day Commonly known as: ELIQUIS bisacodyL 10 mg suppository Insert 1 suppository (10 mg total) into the rectum nightly For: constipation Commonly known as: DULCOLAX bromfenac 0.07 % drops Administer 1 drop into affected eye(s) 2 (two) times a day canagliflozin 100 mg tablet 100 mg daily For: type 2 diabetes mellitus Commonly known as: INVOKANA cholecalciferol 25 mcg (1,000 unit) tablet Take 1,000 Units by mouth daily Generic drug: cholecalciferol cyanocobalamin 100 mcg tablet Take 100 mcg by mouth daily For: prevention of vitamin B12 deficiency Commonly known as: Vitamin B-12 dorzolamide 2 % ophthalmic solution Administer 1 drop into both eyes 2 (two) times a day Commonly known as: TRUSOPT esomeprazole DR 40 mg capsule Take 40 mg by mouth daily before breakfast Commonly known as: NexIUM flecainide 50 mg tablet Take 50 mg by mouth 2 (two) times a day Commonly known as: TAMBOCOR furosemide 40 mg tablet TAKE 1 TABLET DAILY Commonly known as: LASIX insulin glargine 100 unit/mL (3 mL) pen for injection Inject 10 Units under the skin every morning Commonly known as: LOPEZ BUENO SEMGLEE levothyroxine 75 mcg tablet Take 1 tablet (75 mcg total) by mouth product representative before breakfast Commonly known as: SYNTHROID linaCLOtide 290 mcg capsule Take 1 capsule (290 mcg total) by mouth daily before breakfast For: chronic idiopathic constipation Commonly known as: LINZESS Start taking on: December 29, 2020 magnesium hydroxide 80 mg/mL (33.3 mg/mL as elemental magnesium) Take 30 mL by mouth daily Commonly known as: MILK OF MAGNESIA Start taking on: December 29, 2020 Once Daily tablet take 1 tablet by oral route every day with food Generic drug: multivitamin potassium chloride ER 20 mEq CR tablet Take 20 mEq by mouth 4 (four) times a day Commonly known as: KLOR-CON rosuvastatin 10 mg tablet Take 10 mg by mouth nightly Commonly known as: CRESTOR spironolactone 25 mg tablet Take 1 tablet (25 mg total) by mouth daily Commonly known as: ALDACTONE verapamil SR 120 mg CR tablet Take 120 mg by mouth nightly Commonly known as: CALAN SR Outpatient Follow-Up: Future Appointments Date Time Provider Department Center 01/08/2021 2:00 PM Landon Valencia MD [facility]ent 08/06/2021 11:15 AM Landon Valencia MD [facility] Decent Contact Information for Follow-ups Destiney Cmaargo MD Specialty: Internal Medicine Relationship: PCP - General Surinder [address] [address] [facility] [id number] Next Steps: Follow up on 12/29/2020 Instructions: 10:40 AM [facility] Home Care Services Specialty: Home Health and Hospice [address] [facility] [address] Next Steps: Follow up Questions: Service Line: Home Health Primary disciplines requested: Physical Therapy Detention Home Health Services: Therapy to Eval/ Treat Physician to follow patient's care (the person listed here will be responsible for signing ongoing orders): PCP Requested Start of Care Date: Tomorrow Special instructions (labs, wound care, etc.): With home RN/PT I attest that I or another qualified licensed provider saw the patient 90 days prior to or 30 days post admission and this face to face encounter meets the necessary Home Health requirements. The face to face encounter occurred on (date): 12/25/2020 The encounter with the patient was in whole, or in part, for the following medical condition, whichis the primary reason for home health care. (List medical condition): Yes I certify that, based on my findings, the following services are medically necessary skilled home health services: Therapy to Eval/ Treat Clinical findings that support the need for home care: Medical condition requiring skilled assessment/education I certify that my clinical findings support patient's homebound status. Homebound criteria met because: Poor endurance Referral Status: Some Visits Scheduled Destiney Camargo MD Specialty: Internal Medicine [id number] [address] [facility] [address] Next Steps: Follow up Instructions: Follow-up with Dr. Camargo in 1 week. Call for appointment. Questions: Instructions for follow-up (appointment date and time): Follow-up with Dr. Camargo in 1 week. Call for appointment. To provider: DESTINEY CAMARGO Saad R., MD Specialty: Cardiology, Cardiovascular Disease, Internal Medicine, Interventional Cardiology [id number] [facility] [address] [facility] [address] Next Steps: Follow up Instructions: Follow-up with Dr. Valencia as scheduled on 01/08/2021. Questions: To provider: LANDON VALENCIA Instructions for follow-up (appointment date and time): Follow-up with Dr. Valencia as scheduled on 01/08/2021. Total time spent on discharge: 45 minutes. Nina Larsen MD Director of Family Medicine Inpatient Services Hot Air Furnace Installer Repairer, [facility] Family Medicine [facility] documented in this encounter Discharge Instructions * Discharge Instructions* Constanza Cohen, RN - 12/28/2020 2:05 PM CDT Anemia WHAT YOU NEED TO KNOW: Anemia is a low number of red blood cells or a low amount of hemoglobin in your red blood cells. Hemoglobin is a protein that helps carry oxygen throughout your body. Red blood cells use iron to create hemoglobin. Anemia may develop if your body does not have enough iron. It may also develop if your body does not make enough red blood cells or they faster than your body can make them. DISCHARGE INSTRUCTIONS: Call 911 or have someone call 911 for any of the following: ?? You lose consciousness. ?? You have severe chest pain. Seek care immediately if: ?? You have dark or bloody bowel movements. Contact your healthcare provider if: ?? Your symptoms are worse, even after treatment. ?? You have questions or concerns about your condition or care. Medicines: ?? Iron or folic acid supplements help increase your red blood cell and hemoglobin levels. ?? Vitamin B12 injections may help boost your red blood cell level and decrease your symptoms. Ask your healthcare provider how to inject B12. ?? Take your medicine as directed. Contact [...] with you in case of an emergency. Prevent anemia: Eat healthy foods rich in iron and vitamin C. Nuts, meat, dark leafy green vegetables, and beans are high in iron and protein. Vitamin C helps your body absorb iron. Foods rich in vitamin C include oranges and other citrus fruits. Ask your healthcare provider for a list of other foods that are high in iron or vitamin C. Ask if you need to be on a special diet. Follow up with your healthcare provider as directed: Write down your questions so you remember to ask them during your visits. ?? 2017 [employer] Information is for End User's use only and may not be sold, redistributed or otherwise used for commercial purposes. All illustrations and images included in CareNotes?? are the copyrighted property of [employer]. or [employer]. The above information is an hospice home health aide only. It is not intended as medical advice for individual conditions or treatments. Talk to your doctor, nurse or pharmacist before following any medical regimen to see if it is safe and effective for you. * Discharge Instr - Other Orders* Constanza Cohen RN - 12/28/2020 2:01 PM CDT THANK YOU for choosing our team to provide your health care. Your HEALTH AND SAFETY are important to us. We hope you feel your care on IMU was ALWAYS EXCELLENT! Please call IMU at [phone] if you have any questions regarding your care. Wishing you continued improvement during your recovery. Your Intermediate Care Unit Team * Attachments The following attachments cannot be sent through Care Everywhere. * Magnesium (By mouth) (Mongolian) * Linaclotide (By mouth) (Mongolian) * Bisacodyl (By mouth) (Mongolian) * Amoxicillin (By mouth) (Mongolian) * Alprazolam (By mouth) (Mongolian) * Heart Healthy Diet (Discharge Care) (Mongolian) * Heart Failure (Discharge Care) (Mongolian) documented in this encounter Medications at Time of Discharge anastrozole (ARIMIDEX) 1 mg tabletIndications :prevention of breast cancer in high risk women Take 1 tablet (1 mg total) by mouth daily bromfenac 0.07 % drops Administer 1 drop into affected eye(s) 2 (two) times a day dorzolamide (TRUSOPT) 2 % ophthalmic solution Administer 1 drop into both eyes 2 (two) times a day insulin glargine (LANTUS, BASAGLAR, SEMGLEE) 100 unit/mL (3 mL) pen for injection Inject 10 Units under the skin every morning potassium chloride ER (KLOR-CON) 20 mEq CR tablet Take 1 tablet (20 mEq total) by mouth 4 (four) times a day amoxicillin (AMOXIL) 500 mg tablet/capsuleInd ications:Urinary Tract/Genitourina ry Infection Take 1 tablet/capsule (500 mg total) by mouth 3 (three) times a day for 5 doses 5 tablet/capsule 12/31/19 21 magnesium hydroxide (MILK OF MAGNESIA) suspension 400 mg/5 mL Take 30 mL by mouth daily 900 mL 01/29/20 21 ALPRAZolam (XANAX) 0.25 mg tablet Take 1 tablet (0.25 mg total) by mouth 2 (two) times a day as needed for anxiety 5 tablet 1 12/07/19 23 amitriptyline (ELAVIL) 25 mg tabletIndications :Neuropathic Pain Take 50 mg by mouth nightly 9 12/07/19 23 apixaban (ELIQUIS) 5 mg tablet Take 1 tablet (5 mg total) by mouth 2 (two) times a day 60 tablet 1 08/11/19 22 bisacodyL (DULCOLAX) 10 mg suppositoryIndica tions:constipatio n Insert 1 suppository (10 mg total) into the rectum nightly 12 suppository 12/07/19 23 canagliflozin (INVOKANA) 100 mg tabletIndications :type 2 diabetes mellitus 100 mg daily 12/07/19 23 cholecalciferol (VITAMIN D-3) 25 mcg (1,000 unit) tablet Take 1,000 Units by mouth daily 12/07/19 23 cyanocobalamin (Vitamin B-12) 100 mcg tabletIndications :Prevention of Vitamin B12 Deficiency Take 100 mcg by mouth daily 12/07/[address] (NexIUM) 40 mg capsule Take 1 capsule (40 mg total) by mouth daily before breakfast 03/04/20 24 ferrous sulfate 325 mg (65 mg of elemental iron) tablet Take 325 mg by mouth 1 12/07/19 23 flecainide (TAMBOCOR) 50 mg tablet Take 50 mg by mouth 2 (two) times a day 01/24/20 21 furosemide (LASIX) 40 mg tablet TAKE 1 TABLET DAILY 90 tablet 3 1 08/11/19 22 glimepiride (AMARYL) 1 mg tablet 2 mg w/ breakfast , 2 mg with lunch and 1 mg with dinner Po 12/07/19 23 levothyroxine (SYNTHROID) 75 mcg tablet Take 1 tablet (75 mcg total) by mouth product representative before breakfast 30 tablet 1 03/04/20 24 linaCLOtide (LINZESS) 290 mcg capsuleIndication s:chronic idiopathic constipation Take 1 capsule (290 mcg total) by mouth daily before breakfast 30 capsule 1 01/19/20 21 multivitamin (ONCE DAILY) tablet tablet take 1 tablet by oral route every day with food 0 0 7 12/07/19 23 rosuvastatin (CRESTOR) 10 mg tablet Take 10 mg by mouth nightly 08/11/19 22 spironolactone (ALDACTONE) 25 mg tablet Take 1 tablet (25 mg total) by mouth daily 30 tablet 11 0 02/13/20 21 verapamil SR (CALAN SR) 120 mg CR tablet Take 120 mg by mouth nightly 08/07/19 22 documented as of this encounter Ordered Prescriptions Prescription Sig Dispense Quantity Refills Last Filled Start Date End Date magnesium hydroxide (MILK OF MAGNESIA) suspension 400 mg/5 mL Take 30 mL by mouth daily 900 mL 1 01/29/20 21 ALPRAZolam (XANAX) 0.25 mg tablet Take 1 tablet (0.25 mg total) by mouth 2 (two) times a day as needed for anxiety 5 tablet 1 12/07/19 23 linaCLOtide (LINZESS) 290 mcg capsuleIndication s:chronic idiopathic constipation Take 1 capsule (290 mcg total) by mouth daily before breakfast 30 capsule 1 01/19/20 21 bisacodyL (DULCOLAX) 10 mg suppositoryIndica tions:constipatio n Insert 1 suppository (10 mg total) into the rectum nightly 12 suppository 1 12/07/19 23 amoxicillin (AMOXIL) 500 mg tablet/capsuleInd ications:Urinary Tract/Genitourina ry Infection Take 1 tablet/capsule (500 mg total) by mouth 3 (three) times a day for 5 doses 5 tablet/capsule 1 12/31/19 21 levothyroxine (SYNTHROID) 75 mcg tablet Take 1 tablet (75 mcg total) by mouth product representative before breakfast 30 tablet 1 03/04/20 24 apixaban (ELIQUIS) 5 mg tablet Take 1 tablet (5 mg total) by mouth 2 (two) times a day 60 tablet 1 08/11/19 22 documented in this encounter Discharge Disposition Disposition Code Departure Means Destination Discharge to home, home health skilled care documented in this encounter Progress Notes * Trian Benitez RN - 12/28/2020 11:16 AM CDT Reassessment completed. Plan continues to be for patient to go home with . [facility] is alreadyset up with RN/PT on d/c. No other anticipated needs at this time. CM will continue to follow. 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 No * Julian Alvarado PT - 12/28/2020 11:15 AM CDT Physical Therapy 12/28/20 1100 PT Last Visit Session Type Treatment PT Received On 12/28/20 Safe Environment Arm Band Checked;Call Light within Reach;Notified RN;Patient found sitting in Chair;Overbed Table within Reach Subjective Agreeable to Therapy Family/Caregiver Present No Pain Assessment Pain Assessment No/denies pain Cognition Overall Cognitive Status WFL Bed Mobility 1 Bed Mobility Comments 1 NT pt up in bedside chair Transfer 1 Transfer From 1 Sit;Chair with arms Transfer Type 1 To and from Transfer to 1 Stand Technique 1 Sit to stand;Stand to sit Transfer Device 1 Wheeled walker Transfer Level of Assistance 1 Moderate Assist Trials/Comments 1 fall risk Ambulation 1 Distance (ft) 1 8' Surface 1 Level tile Device 1 Wheeled walker Assistance 1 Moderate Assist Gait: Requires assist with 1 Maintaining balance Gait: Requires verbal cues to 1 Improve upright posture;Increase step length;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 2 How much difficulty does the patient have: Moving from lying on back to sitting on the side of the bed? 2 How much difficulty does the patient have: Moving to and from a bed to a chair including wheelchair? 3 How much help does the patient currently need: Walk in hospital room? 2 How much help from another person does the patient currently need: Climbing 3-5 steps with a railing? 2 Total 6 Click Score (range 6-24) 13 Score Interpretation 33.99 Assessment Prognosis Fair Problem List Gait deviations;Decreased strength;Decreased endurance;Impaired balance;Decreased mobility;Decreased safety awareness Problem List Comments (fall risk) Plan Plan Continue with current plan;If this is the last note, consider this the discharge summary Recommendation/Plan PT Recommendation/Plan Detention Facility PT Recommendation/Plan Comments if pt is DC to home will need 24 hr care, [facility] PT PT Frequency Daily Treatment/Interventions Bed mobility;Functional transfer training;Gait training;Therapeutic exercise PT Equipment Recommended None (pt owns and uses a sw and a fww) Multi-Disciplinary Problems (from Physical Therapy) Active Problems Problem: PT [facility] [place] Start Date: 12/22/20 Goal Start Date Expected End Date End Date PT [facility] [place] 1 12/22/20 12/28/20 -- Goal Details: Supine to/from sit with min assist Goal Start Date Expected End Date End Date PT STG - Misc 2 12/22/20 12/28/20 -- Goal Details: Sit to/from stand with cg assist Goal Start Date Expected End Date End Date PT STG - Mis 3 12/22/20 12/28/20 -- Goal Details: Bed to/from chair with cg assist Goal Start Date Expected End Date End Date PT [facility] - Mis 4 12/22/20 12/28/20 -- Goal Details: Ambulate 40' with wheeled walker with cg assist Goal Start Date Expected End Date End Date PT [facility] - Mis 5 12/22/20 12/28/20 -- Goal Details: HEP with LE's with cg assist x10 reps * Nina Larsen MD - 12/28/2020 10:46 AM CDT [facility] Hospitalist Service Progress Note Patient Name: Loc Anderson Patient : 1940 Age/Sex: 80 y.o. female Room/Bed: [id number] Admission Date/Time: 12/20/2020 3:09 PM Date: 12/28/2020 Time: 10:46 AM Chief Complaint: Weakness Subjective: Patient is an 80-year-old woman with diastolic CHF, hypertension, paroxysmal atrial fibrillation, hypertension and diabetes admitted with anemia and UTI. Now having problems with constipation. Today the patient states she had an anxiety attack earlier today. She had large formed bowel movement this morning after disimpaction yesterday. No abdominal pain, nausea or vomiting. No chest pain or shortness of breath. No headache or dizziness. Allergies: Allergies Allergen Reactions ??? Donepezil Other (See comments) Reaction: unknown reaction, , , Reaction: yeast infection, ??? Black Pepper ??? Diltiazem Edema, Diarrhea and Other (See comments) Reaction: edema, , Reaction: diarrhea, , , Reaction: ankles swell, ??? Fluticasone Other (See comments) Reaction: colon problems, ??? Metformin Diarrhea Reaction: diarrhea, , ??? Salmeterol Other (See comments) Reaction: colon problems, Current Medication List: Scheduled Meds:amitriptyline, 50 mg, oral, Nightly amoxicillin, 500 mg, oral, TID anastrozole, 1 mg, oral, Daily apixaban, 5 mg, oral, Q12H KATHARINE bisacodyL, 10 mg, rectal, Nightly bromfenac, 1 drop, ophthalmic, BID canagliflozin, 100 mg, oral, Before breakfast cholecalciferol, 1,000 Units, oral, Daily cyanocobalamin, 250 mcg, oral, Daily dorzolamide, 1 drop, each eye, BID flecainide, 50 mg, oral, BID furosemide, 40 mg, oral, Daily insulin glargine, 8 Units, subcutaneous, QAM insulin lispro, 1-3 Units, subcutaneous, Nightly insulin lispro, 1-5 Units, subcutaneous, TID with meals levothyroxine, 75 mcg, oral, Daily - 0600 linaCLOtide, 290 mcg, oral, Before breakfast magnesium hydroxide, 30 mL, oral, Daily multivitamin with minerals, 1 tablet, oral, Daily pantoprazole DR, 40 mg, oral, Daily potassium chloride ER, 20 mEq, oral, QID rosuvastatin, 10 mg, oral, Nightly sodium chloride 0.9%, 0.5-20 mL, intra-catheter, Q12H spironolactone, 25 mg, oral, Daily verapamil SR, 120 mg, oral, Nightly Continuous Infusions: PRN Meds:??? acetaminophen ??? ALPRAZolam ??? dextrose OR dextrose ??? docusate sodium ??? glucagon ??? ondansetron ODT ??? senna-docusate ??? sodium chloride 0.9% Objective: Vitals: Vitals: 12/28/20 0300 12/28/20 0400 12/28/20 0600 12/28/20 0745 BP: (!) 116/39 110/56 BP Location: Left arm Left arm Patient Position: Lying Lying Pulse: 64 60 64 68 Resp: 18 16 Temp: 36.3 ??C (97.3 ??F) 36.4 ??C (97.6 ??F) TempSrc: Temporal Temporal SpO2: 94% 95% Weight: Height: Physical Exam: General: Awake and alert. No acute distress. HEENT: EOMI, MONTY. Sclerae non icteric. Mucous membranes moist. Neck: Supple without lymphadenopathy. No carotid bruits. CV: Heart regular rate and rhythm. No murmur. Respiratory: Lungs clear to auscultation bilaterally. No rales, rhonchi or wheezes. GI: Abdomen with bowel sounds present, soft, nontender. No masses palpated. : Schmitt catheter in place with urine clear. Skin: No rashes or lesions. Extremities: No edema of lower extremities. Musculoskeletal: No joint erythema, edema or tenderness. Neurologic: Oriented x 3. Speech clear. Moving all extremities. Decreased mobility. Psychiatric: Appropriate mood and affect. Labs: Lab Results Component Value Date GLUCOSE 149 (H) 12/28/2020 CALCIUM 9.2 12/28/2020 SODIUM 135 12/28/2020 POTASSIUM 4.6 12/28/2020 CO2 21 (L) 12/28/2020 CHLORIDE 104 12/28/2020 BUNSER 19 12/28/2020 CREATININE 0.67 12/28/2020 Lab Results Component Value Date WBC 8.3 12/28/2020 HGB 9.3 (L) 12/28/2020 HCT 32.8 (L) 12/28/2020 MCV 80.6 (L) 12/28/2020 LABPLAT 277 12/28/2020 Pertinent Labs: I have reviewed the pertinent labs. Radiology: ECG 12 lead Result Date: 12/21/2020 Narrative: Vent Rate: 77 bpm RR Interval: 771 msec [place] Interval: 192 msec QRS Duration: 112 msec QT Interval: 415 msec QTC Interval: 447 msec P-R-T [place]: 46 - -28 - 55 degrees SINUS RHYTHM BORDERLINE LEFT AXIS DEVIATION [QRS AXIS < -20] MODERATE INTRAVENTRICULAR CONDUCTION DELAY [110+ ms QRS DURATION] BORDERLINE ECG No change from prior EKG Electronically Signed By: Landon Valencia MD ECG 12 lead Result Date: 12/21/2020 Narrative: Vent Rate: 81 bpm RR Interval: 736 msec [place] Interval: 162 msec QRS Duration: 119 msec QT Interval: 326 msec QTC Interval: 363 msec P-R-T [place]: -11 - -39 - 35 degrees Probable junctional rhythm LEFT AXIS DEVIATION [QRS AXIS < - 30] PATTERN CONSISTENT WITH PULMONARY DISEASE MODERATE INTRAVENTRICULAR CONDUCTION DELAY [110+ ms QRS DURATION] NONSPECIFIC ST \T\ T-WAVE ABNORMALITY Compared to prior EKG, nonspecific ST/T changes are new and junctional rhythm has replaced sinus rhythm. Electronically Signed By: Dr Darin Corona XR Wrist Left 3 or More Views Result Date: 12/25/2020 Narrative: EXAM DESCRIPTION: XR WRIST LEFT 3 OR MORE VIEWS REASON FOR STUDY: Patient states her left wrist became swollen after having an IV removed. Patient initially had diarrhea 1-2 weeks ago and is now having abdominal distention. Duration: 3-4 days TECHNIQUE: Frontal, lateral, and oblique radiographic views acquired of the left wrist. COMPARISON: None FINDINGS: BONES/JOINTS: There is no fracture or bone destruction. Severe arthritis is seen in the 1st carpometacarpal joint. SOFT TISSUES: Diffuse swelling OTHER: No other significant finding. IMPRESSION: 1. 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 No fracture or bone destruction. 3. Diffuse swelling THIS IS AN ELECTRONICALLY VERIFIED FINAL REPORT 12/25/2020 4:30 PM - Electronically signed by Keyshawn Cummings M.D. LEIGH: LEIGH Report ID: [id number] Reading Location: [id number] XR Abdomen Ap 1 Vw Result Date: 12/25/2020 Narrative: EXAM DESCRIPTION: XR ABDOMEN AP 1 VIEW REASON FOR STUDY: Patient states her left wrist became swollen after having an IV removed. Patient originally had diarrhea 1-2 weeks ago and is now having abdominal distention. Duration: 3-4 days TECHNIQUE: Supine radiographic view of the abdomen acquired. COMPARISON: None FINDINGS: BOWEL GAS PATTERN: Scattered non-dilated small bowel loops. Nonobstructive pattern. There is a very large amount of stool throughout the colon. SOFT TISSUES: No significant abnormal calcifications. BONES: No significant abnormality. OTHER: No other significant finding. IMPRESSION: Very large amount of stool throughout the colon all the way to the rectum. THIS IS AN ELECTRONICALLY VERIFIED FINAL REPORT 12/25/2020 4:31 PM - Electronically signed by Keyshawn ABRAHAM: LEIGH Report ID: [id number] Reading Location: [id number] CT Abdomen Pelvis W Contrast Result Date: 12/20/2020 Narrative: EXAM DESCRIPTION: CT ABDOMEN PELVIS W CONTRAST REASON FOR STUDY: asthma, PNA, CAD, CHF,A-fib, HTN, HLD, and DM who presents to the ED via EMS and accompanied by her daughter c/o generalized weakness for approximately 3 days PSH cade hernia ike 100 ml optiray 91567 g r FA Duration: 3 days TECHNIQUE: CT scan of the abdomen and pelvis performed with intravenous and without oral contrast using helical scanning technique with dynamic intravenous contrast injection. Reconstructed coronal and sagittal MPR images reviewed. All images stored on PACS. Automated exposure control was used as a dose optimization technique for this examination. CONTRAST TYPE/DOSE: 100 mL of Optiray 320 injec roshan via right forearm COMPARISON: 11/27/2020 FINDINGS: LOWER CHEST: Coronary artery, aortic valvular and mitral calcifications. Mild cardiomegaly. LIVER: Normal size. No identified cystic or solid masses. GALLBLADDER: Surgically absent. BILE DUCTS: No intrahepatic or extrahepatic ductal dilatation.SPLEEN: Punctate calcifications throughout the spleen consistent with prior granulomatous disease. PANCREAS: No identified cystic or solid masses. No significant calcifications. No adjacent inflammation or peripancreatic fluid collections. Pancreatic duct not dilated. ADRENALS: Normal. KIDNEYS/URINARY TRACT: No identified significant cystic or solid masses. No visualized stones. No hydronephrosisor hydroureter. Symmetric enhancement. The urinary bladder is decompressed with a Schmitt catheter inplace. GI: Moderate amount of formed stool throughout the colon. No dilated bowel loops. No obviouswall thickening. No significant diverticular disease. The appendix is not discretely visualized alth ough there are no secondary signs of inflammatory change within the right lower quadrant. PERITONEUM: No ascites or free air. RETROPERITONEUM: No mass or adenopathy. REPRODUCTIVE: Uterus is surgically absent. VASCULATURE: Calcified atheroma of the abdominal aorta and its branch vessels. MUSCULOSKELETAL: Levoconvex scoliotic curvature of the lumbar spine with multilevel degenerative change. OTHER:Fat containing right femoral hernia. IMPRESSION: Moderate amount of stool throughout the colon likely due to underlying constipation. Otherwise, no acute findings to explain the patient's current symptoms. THIS IS AN ELECTRONICALLY VERIFIED FINAL REPORT 12/20/2020 7:38 PM - Electronically signed by Deborah Garcia M.D. TS: SHANNON Report ID: [id number] Location: [id number] XR Chest 1 Vw Portable Result Date: 12/20/2020 Narrative: EXAM DESCRIPTION: XR CHEST 1 VIEW REASON FOR STUDY: Generalized weakness over the past 3days. Leg swelling. Nonsmoker with a h/o sleep apnea, asthma, PNA, CAD, CHF, A-fib, HTN, HLD, and DM who presents to the ED via EMS and accompanied by her daughter c/o generalized weakness for approximately 3 days. Pt's daughter reports pt taking multiple water pills daily for swelling in pt's legsthat has improved. She states pt has a caregiver that comes to the home a couple times per day. Today, daughter of pt states a home nurse came evaluate pt's previous UTI who states pt was feeling dizzy upon standing up this morning. Pt states they are thinking it may be A-fib. I couldn't walk. I could sit down and be okay, but as soon as I stand up my face would be real hot.Duration: today TECHNIQUE: Frontal radiographic view of the chest acquired. COMPARISON: 03/06/2019 and 04/07/2018 FINDINGS: LUNGS/PLEURA: Pulmonary vascularity appears normal. No infiltrate or effusion. Costophrenic angles are sharp. HEART/MEDIASTINUM: Senescent change of the aorta. Otherwise, normal cardiomediastinal silhouette. HARDWARE/LINES/TUBES: None. BONES: No acute findings. OTHER: Joanie are seen of the leftlower chest similar to prior. IMPRESSION: 1. No acute findings or infiltrate. THIS IS AN ELECTRONICALLY VERIFIED FINAL REPORT 12/20/2020 4:42 PM - Electronically signed by Noah JACKSON: RENETTA Report ID: [id number] Reading Location:[id number] US Carotids Duplex Bilateral Result Date: 12/25/2020 Narrative: EXAM DESCRIPTION: US CAROTIDS DUPLEX BILATERAL REASON FOR STUDY: Generalized weakness. Rule out stenosis. HTN.Duration: 9 days TECHNIQUE: Kraus scale, color Doppler and spectral Doppler imaging were performed. Velocity criteria are extrapolated from diameter as defined by the Society of Ra diologists in Ultrasound Consensus Conference. All velocity measurements are in cm/sec. COMPARISON:None FINDINGS: Right: Mild intimal thickening and plaque are seen. Distal CCA Peak Systolic Velocity: 63 Distal CCA End Diastolic Velocity: 9 Peak ICA Systolic Velocity: 84 ICA End Diastolic Velocity: 14 Peak ICA/CCA Systolic Ratio: 1.32 Right Vertebral Artery: Antegrade direction of flow. Left: Mild intimal thickening and plaque are seen. Distal CCA Peak Systolic Velocity: 62 Distal CCA End Diastolic Velocity: 7 Peak ICA Systolic Velocity: 100 ICA End Diastolic Velocity: 15 Peak ICA/CCA Systolic Ratio: 1.62 Left Vertebral Artery: Antegrade direction of flow. IMPRESSION: 1. Velocities correspond to a less than 50percent diameter stenosis of the right ICA. 2. Velocities correspond to a less than 50percent diameter stenosis of the left ICA. 3. Antegrade direction of flow of the bilateral vertebral arteries. REFERENCE: Consensus Panel Kraus-Scale and Doppler US Criteria for Diagnosis of ICAStenosis. No stenosis: ICA PSV <125*, 0 percent plaque, ICA/CCA PSV Ratio <2.0, ICA EDV <40*. <50 percent stenosis: ICA PSV <125*, <50 percent plaque, ICA/CCA PSV Ratio <2.0, ICAEDV <40*. 50-69 percent stenosis: ICA PSV 125-230*, >=50 percent plaque, ICA/CCA PSV Ratio 2.0- 4.0, ICA EDV 40-100*. >=70 percent but less than near occlusion >230, >=50 percent plaque, ICA/CAA PSV Ratio >4.0, ICA EDV >100*. *cm/sec Plaque estimate (diameter reduction) with kraus-scale and color Doppler US. RSNA 2002 THIS IS AN ELECTRONICALLY VERIFIED FINAL REPORT 12/25/2020 9:30 AM - Electronically signed by Hilario Bolanos M.D. AG: SORAIDA Report ID: [id number] Reading Location: [id number] Microbiology: COVID-19 RNA negative. H pylori negative. Urine culture positive for Pseudomonas aeruginosa and 2 species??of Enterococcus faecalis ASSESSMENT AND PLAN: Principal Problem: Normocytic anemia Active Problems: Urinary tract bacterial infections Paroxysmal atrial fibrillation (CMS/HCC) (HCC) History of pulmonary embolism Type 2 diabetes mellitus (HCC) Chronic diastolic (congestive) heart failure (HCC) Anxiety CAD (coronary artery disease) HTN (hypertension) Occult blood in stools Hypophosphatemia Anxiety Constipation Pain and swelling of left wrist Resolved Problems: Hypokalemia Constipation Now resolved after flexible sigmoidoscopy with disimpaction yesterday. Appreciate help from GI. Advised patient and daughter by phone would monitor this morning with probable discharge today but patient also needed to have PT evaluation. Patient seen by PT with SNF recommendation but patient prefers home with home health. Returned to see patient. With patient stable, will discharge today. ?? Normocytic anemia Appreciate help from GI and Hematology/Oncology during this stay. ??Noted iron deficiency. ??Completed 3 days of IV iron. ??No current bleeding. ??EGD was negative for bleeding. ??ASA remains on hold. Hemoglobin stable at 9.3 today. Will continue vitamin B12 as well as Protonix. Follow as outpatient. ?? Urinary tract bacterial infections Urine culture as noted above. ??Infectious Disease has been following and appreciate input. ??Patient now on oral amoxicillin to complete treatment after completing 6 days of IV cefepime. ?? Paroxysmal atrial fibrillation (CMS/HCC) (HCC) Stable. Heart rate controlled. Will continue flecainide. Continue Eliquis for anticoagulation. ?? Pain and swelling of left wrist No further complaint. Imaging from 12/25/2020 with no acute fracture. ?? Type 2 diabetes mellitus (HCC) Glucose reviewed on 12/28/2020. Glucose stable. Will continue Invokana. Hold other home oral medications. ?? Chronic diastolic (congestive) heart failure (HCC) No exacerbation. Stable. Will continue spironolactone and furosemide. ?? Essential hypertension Blood pressure reviewed on 12/28/2020. Blood stable. Continue verapamil, spironolactone and furosemide. ?? CAD (coronary artery disease) Stable. No acute issue. Continue rosuvastatin. ASA on hold. ?? History of pulmonary embolism Stable. ??Continue Eliquis. ?? Anxiety Mood stable. ??Continue alprazolam as needed. ?? Hypokalemia Resolved. Potassium stable at 4.6 today. Continue replacement. Follow as outpatient. ?? DVT PPx On Eliquis as noted above. ? MDM:?Moderate. Nina Larsen MD Director of [facility] Medicine Inpatient Services [employer] Furn[employer] Installer [employer]airer, [facility] 12/28/2020 10:46 AM * Phyllis Young, PT - 12/28/2020 8:45 AM CDT Physical Therapy 12/28/20 0800 PT Last Visit Subjective Comment Can we wait? I feel terrible right now. PT Missed Visit Reason Patient declined * Jessica Landrum, PT - 12/27/2020 3:08 PM CDT Physical Therapy 12/27/20 1507 General Session Type Treatment PT Received On 12/27/20 PT Missed Visit Reason Unavailable;With other staff/receiving another service Rehab Only - Missed Reasons - All Disciplines Unavailable (Comment) Attempted PT treatment but patient out of room and not available at this time. Will check back tomorrow. Jessica Landrum, PT, DPT * Noah Foley [facility] - 12/27/2020 2:13 PM CDT Ashlee Avila, vasc tech, counseled the patient for apixaban and gave informational materials. Patient was on medication prior to admission. Patient had no questions. An information handout was offered to the patient. Ashlee Avila, Pharm.D. Candidate * Jaylin Reynolds NP - 12/27/2020 10:47 AM CDT Progress Note Infectious Diseases Chief complaint: UTI Subjective Patient denies suprapubic discomfort or urinary symptoms at this time. No fever. WBCs 10.6. She reports having bowel movement this morning. Has some local phlebitis to left wrist from prior IV site, improving. Objective Vitals: 12/27/20 0800 BP: Pulse: 72 Resp: Temp: SpO2: Constitutional: Alert, oriented x3. In no acute distress Eyes: Sclerae anicteric, no conjunctival erythema Lungs: Clear breath sounds, no crackles, no wheezes Heart: Regular rate and rhythm, no murmurs Abdomen: Bowel sounds present, soft, nontender, mildly distended : Schmitt catheter in place with clear yellow urine Skin: Warm and dry, No rashes. Extremities: Mild BLE edema Neuro: No motor deficit Psych: No anxiety Current Medications: Current Facility-Administered Medications Medication Dose Route Frequency Provider Last Rate Last Admin ??? acetaminophen (TYLENOL) tablet 500 mg 500 mg oral Q4H PRN Neeta Patel MD 500 mg at 12/25/202250 ??? ALPRAZolam (XANAX) tablet 0.25 mg 0.25 mg oral BID PRN Wayne Snow MD 0.25 mg at 12/25/202251 ??? amitriptyline (ELAVIL) tablet 50 mg 50 mg oral Nightly Neeta Patel MD 50 mg at 12/26/202031 ??? amoxicillin (AMOXIL) tablet/capsule 500 mg 500 mg oral TID Willie Aly MD 500 mgat 12/27/20838 ??? anastrozole (ARIMIDEX) tablet 1 mg 1 mg oral Daily Neeta Patel MD 1 mg at 12/27/20 08 ??? apixaban (ELIQUIS) tablet 5 mg 5 mg oral Q12H [facility] Neeta Patel MD 5 mg at 12/27/20 08 ??? bisacodyL (DULCOLAX) suppository 10 mg 10 mg rectal Nightly Neeta Patel MD 10 mg at 12/26/202032 ??? bromfenac 0.07 % drops 1 drop 1 drop ophthalmic BID Neeta Patel MD 1 drop at 12/27/20837 ??? canagliflozin (INVOKANA) tablet 100 mg 100 mg oral Before breakfast Neeta Patel MD 100mg at 12/27/20 0607 ??? cholecalciferol (VITAMIN D-3) tablet 1,000 Units 1,000 Units oral Daily Neeta Patel MD1,000 Units at 12/27/20 0839 ??? cyanocobalamin (Vitamin B-12) tablet 250 mcg 250 mcg oral Daily Neeta Patel MD 250 mcgat 12/27/20 0839 ??? dextrose gel in packet 15 g 15 g oral Q15 Min PRN Neeta Patel MD Or ??? dextrose (D10W) 10% bolus 250 mL 250 mL intravenous Q15 Min PRN Neeta Patel MD ??? docusate sodium (COLACE) capsule 100 mg 100 mg oral BID PRN Neeta Patel MD 100 mg at 12/27/20 0606 ??? dorzolamide (TRUSOPT) 2 % ophthalmic solution 1 drop 1 drop each eye BID Neeta Patel MD 1 drop at 12/26/202032 ??? flecainide (TAMBOCOR) tablet 50 mg 50 mg oral BID Neeta Patel MD 50 mg at 12/27/20 0838 ??? furosemide (LASIX) tablet 40 mg 40 mg oral Daily Neeta Patel MD 40 mg at 12/27/20 0838 ??? glucagon injection 1 mg 1 mg intramuscular Q30 Min PRN Neeta Patel MD ??? insulin glargine (LANTUS, BASAGLAR, SEMGLEE) 100 unit/mL (3 mL) pen injection 8 Units 8 Units subcutaneous QAM Neeta Patel MD 8 Units at 12/27/20 0842 ??? insulin lispro (HumaLOG, ADMELOG) 100 unit/mL pen injection 1-3 Units 1-3 Units subcutaneous Nightly Neeta Patel MD ??? insulin lispro (HumaLOG, ADMELOG) 100 unit/mL pen injection 1-5 Units 1-5 Units subcutaneous TID with meals Neeta Patel MD 1 Units at 12/26/20 182 ??? levothyroxine (SYNTHROID) tablet 75 mcg 75 mcg oral Daily - 0600 Neeta Patel MD 75 mcgat 12/27/20605 ??? linaCLOtide (LINZESS) capsule 290 mcg 290 mcg oral Before breakfast Neeta Patel MD 290mcg at 12/27/20 0606 ??? magnesium hydroxide (MILK OF MAGNESIA) 80 mg/mL (33.3 mg/mL as elemental magnesium) oral suspension 30 mL 30 mL oral Daily Neeta Patel MD 30 mL at 12/27/20 0838 ??? multivit vkxkntyi-mkyr-LX-calcium (THERA-M) tablet 1 tablet 1 tablet oral Daily Neeta Patel MD 1 tablet at 12/27/20 0838 ??? ondansetron ODT (ZOFRAN-ODT) disintegrating tablet 4 mg 4 mg oral Q4H PRN Wayne Snow MD 4 mg at 12/25/20 1230 ??? pantoprazole DR (PROTONIX) extended release tablet 40 mg 40 mg oral Daily Neeta Patel MD 40 mg at 12/27/20 0839 ??? potassium chloride ER (KLOR-CON) extended release tablet 20 mEq 20 mEq oral QID Neeta Patel MD 20 mEq at 12/27/20 0839 ??? rosuvastatin (CRESTOR) tablet 10 mg 10 mg oral Nightly Neeta Patel MD 10 mg at 12/26/202031 ??? senna-docusate (PERICOLACE) 8.6-50 mg per tablet 1 tablet 1 tablet oral BID PRN Wayne Snow MD 1 tablet at 12/27/20 0606 ??? sodium chloride 0.9% flush 0.5-20 mL 0.5-20 mL intra-catheter PRN Neeta Patel MD ??? sodium chloride 0.9% flush 0.5-20 mL 0.5-20 mL intra-catheter Q12H Wayne Snow MD 10 mLat 12/27/20 0842 ??? spironolactone (ALDACTONE) tablet 25 mg 25 mg oral Daily Neeta Patel MD 25 mg at 12/27/20 0839 ??? verapamil SR (CALAN SR) extended release tablet 120 mg 120 mg oral Nightly Neeta Patel MD 120 mg at 12/26/202031 Allergies: Allergies Allergen Reactions ??? Donepezil Other (See comments) Reaction: unknown reaction, , , Reaction: yeast infection, ??? Black Pepper ??? Diltiazem Edema, Diarrhea and Other (See comments) Reaction: edema, , Reaction: diarrhea, , , Reaction: ankles swell, ??? Fluticasone Other (See comments) Reaction: colon problems, ??? Metformin Diarrhea Reaction: diarrhea, , ??? Salmeterol Other (See comments) Reaction: colon problems, Social History Social History Socioeconomic History ??? Marital status: Spouse name: Not on file ??? Number of children: Not on file ??? Years of education: Not on file ??? Highest education level: Not on file Occupational History ??? Not on file Tobacco Use ??? Smoking status: Never Smoker ??? Smokeless tobacco: Never Used Substance and Sexual Activity ??? Alcohol use: No ??? Drug use: No ??? Sexual activity: Defer control/protection: Post-menopausal Other Topics Concern ??? Not on file Social History Narrative Lives at home. Social Determinants of Health Financial Resource Strain: Low Risk ??? Difficulty of Paying Living Expenses: Not very hard Food Insecurity: No Food Insecurity ??? Worried About Running Out of Food in the Last Year: Never true ??? Ran Out of Food in the Last Year: Never true Transportation Needs: No Transportation Needs ??? Lack of Transportation (Medical): No ??? Lack of Transportation (Non-Medical): No Physical Activity: ??? Days of Exercise per Week: ??? Minutes of Exercise per Session: Stress: ??? Feeling of Stress : Social Connections: Moderately Isolated ??? Frequency of Communication with Friends and Family: More than three times a week ??? Frequency of Social Gatherings with Friends and Family: More than three times a week ??? Attends Sabianist Services: Never ??? Active Member of Clubs or Organizations: No ??? Attends Club or Organization Meetings: Never ??? Marital Status: Intimate Partner Violence: ??? Fear of Current or Ex-Partner: ??? Emotionally Abused: ??? Physically Abused: ??? Sexually Abused: Family Medical History Family History Problem Relation Age of Onset ??? Breast cancer Mother Cancer, breast; /Cancer -breast; ??? Heart failure Father Congestive heart failure; ??? Hypertension Brother Hypertension; ??? Hypertension Brother Hypertension; Imaging No results found. Labs Recent Results (from the past 24 hour(s)) POCT glucose Collection Time: 12/26/20 11:57 AM Result Value Ref Range Glucose, POC 142 (H) 71 - 98 mg/dL POCT glucose Collection Time: 12/26/20 5:10 PM Result Value Ref Range Glucose, POC 162 (H) 71 - 98 mg/dL POCT glucose Collection Time: 12/26/20 9:08 PM Result Value Ref Range Glucose, POC 136 (H) 71 - 98 mg/dL POCT glucose Collection Time: 12/27/20 2:49 AM Result Value Ref Range Glucose, POC 136 (H) 71 - 98 mg/dL CBC without differential Collection Time: 12/27/20 5:28 AM Result Value Ref Range WBC 10.6 (H) 3.8 - 9.9 K/cumm Hgb 9.6 (L) 11.9 - 15.5 g/dL Hct 34.3 (L) 35.6 - 45.5 % Plt 268 150 - 400 K/cumm MPV 9.8 9.1 - 12.3 fL RBC 4.24 3.90 - 5.20 M/cumm MCV 80.9 (L) 81.3 - 96.4 fL MCH 22.6 (L) 27.1 - 33.3 pg MCHC 28.0 (L) 32.3 - 35.7 g/dL RDW CV 20.5 (H) 11.1 - 14.9 % RDW SD 58.6 (H) 35.7 - 48.1 fL NRBC abs 0.02 (H) 0.00 - 0.01 K/cumm Basic metabolic panel Collection Time: 12/27/20 5:28 AM Result Value Ref Range Sodium 135 135 - 145 mmol/L Potassium, pl 4.5 3.3 - 4.9 mmol/L Chloride 103 97 - 110 mmol/L CO2 25 22 - 32 mmol/L Anion gap 7 2 - 15 mmol/L BUN 19 8 - 25 mg/dL Creatinine 0.72 0.60 - 1.10 mg/dL Glucose 148 70 - 199 mg/dL Calcium 9.6 8.5 - 10.3 mg/dL Magnesium Collection Time: 12/27/20 5:28 AM Result Value Ref Range Magnesium 3.7 (H) 1.4 - 2.5 mg/dL eGFR Collection Time: 12/27/20 5:28 AM Result Value Ref Range eGFR 78 mL/min/1.73 m2 POCT glucose Collection Time: 12/27/20 7:29 AM Result Value Ref Range Glucose, POC 131 (H) 71 - 98 mg/dL Assessment/Plan Principal Problem: Normocytic anemia Active Problems: Urinary tract bacterial infections Paroxysmal atrial fibrillation (CMS/HCC) (HCC) History of pulmonary embolism Type 2 diabetes mellitus (HCC) Chronic diastolic (congestive) heart failure (HCC) Anxiety CAD (coronary artery disease) HTN (hypertension) Occult blood in stools Hypophosphatemia Anxiety Constipation Pain and swelling of left wrist ?? Loc Anderson is an 80-year old female with history of HTN, atrial fibrillation, CHF, DM type II, and chronic indwelling Schmitt catheter here with catheter- associated urinary tract infection. Urine culture grew Pseudomonas and 2 strains of ampicillin-sensitive Enterococcus faecalis. She has completed 6 days of Pseudomonal coverage with cefepime. Continues on short course of oral amoxicillin for Enterococcal coverage. Continue amoxicillin for another 2 days. 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 Mild urinary symptoms have resolved. Mild elevation in WBCsnoted today, possibly associated with constipation. She is afebrile and stable. Follow CBC trend. Jaylin Reynolds NP [facility] Office [phone] * Kyliegh Robles - 12/27/2020 8:51 AM CDT Nutrition Assessment Reason for Assessment: Length of Stay Encounter Date: 12/27/20 8:51 AM Nutrition Assessment and Plan: Patient is a 80 y.o. female. Admit Dx: ANEMIA, UNSPECIFIED TYPE. Admitted on 12/20/2020, current LOS is 7 days. Adult Malnutrition Scoring Tool (MST) Have You Recently Lost Weight Without Trying?: No Have you been eating poorly because of a decreased appetite?: Yes Malnutrition Screening Tool (MST) Score: 1 Current diet order: NPO Diet Sips with meds Pt intake is adequate. PO intakes: 100% Supplement Order: N/A ASSESSMENT: Seen for length of stay. Intakes are good. Awaiting resolution of constipation for discharge. Continue to monitor. Nutrition Diagnosis 1: Altered GI function (Length of stay evaluation) Related to: Constipation Evidenced by: Physical finding ?? Interventions: [place] diet preferences within the limits of nutrition care order, Meals and snacks ?? Monitoring and Evaluation: Blood glucoses, Discharge plans, Labs, Plan of care, PO intake, Stoolpatterns ?? Goals: Adequate nutrition to meet estimated needs by next assessment ? Wt Readings from Last 10 Encounters: 12/21/20 77 kg (169 lb 11.2 oz) 11/26/20 80.7 kg (178 lb) 07/31/20 79.4 kg (175 lb) 01/17/20 81.6 kg (180 lb) 06/13/19 81.6 kg (180 lb) 05/13/19 80.8 kg (178 lb 3.2 oz) 04/20/19 78.5 kg (173 lb) 03/19/19 83 kg (182 lb 15.7 oz) 03/06/19 87.8 kg (193 lb 9 oz) 09/29/18 90.7 kg (200 lb) Estimated needs: ?? Total Kcal/kg Estimated Needs : 1923.38 based on Kcal/k. Type of Weight Used for Estimated Kcals: Current ?? MSJ Total Energy Needs: 1624.92 kcal using Stress Factor: 1.1 Activity Factor: 1.2 ?? [place] Total Energy Needs + Fever Factor: 1624.92 ?? Total Protein Estimated Needs (gm): 76.98 Protein Needs Based on g/k.0 Type of Weight Used for Estimated Protein : Current. ?? Total Fluid Estimated Needs: 1923.38 Fluid Needs Based on : 25 ml/kg. Objective Anthropometrics Weight: 77 kg (169 lb 11.2 oz) Admission Weight : 77 kg Weight Change: 0.77 kg (1.70 lbs) IBW/kg (Calculated) : 56.7 kg Height: 165.1 cm (5' 5 ) Weight in (lb) to have BMI = 25: 149.9 BMI (Calculated): 28.2 BMI Classification: BMI 25.0 - 29.9 Overweight 3 Day I/O Summary 12/25 1900 - 12/27 0659 In: - Out: 4950 [Urine:4950] Temp: 36.5 ??C (97.7 ??F) Past Medical History: Diagnosis Date ??? A-fib (CMS/HCC) (HCC) ??? Anemia Anemia ??? Asthma Asthma ??? Atrial fibrillation (CMS/HCC) (HCC) ??? Chronic coronary artery disease Coronary artery disease ??? Diabetes mellitus (HCC) ??? Familial spastic paraplegia (CMS/HCC) (HCC) ??? Glaucoma Glaucoma ??? Glaucoma ??? Herpes zoster Herpes zoster ??? HX OTHER MEDICAL Transient ischemic attack (TIA) ??? HX OTHER MEDICAL Fx Sacrum 2000 ??? HX OTHER MEDICAL Lymphatic edema ??? HX OTHER MEDICAL Spinal Cerebellum Degeneration ??? HX OTHER MEDICAL URI/GERD; Outcome: improved ??? HX OTHER MEDICAL TIA ??? Hyperlipidemia Hyperlipidemia ??? Hypertension Hypertension ??? Lymphatic edema ??? Osteoarthritis Osteoarthritis ??? Pneumonia ??? Sleep apnea Medications and Lab Review: Scheduled Meds: amitriptyline, 50 mg, oral, Nightly amoxicillin, 500 mg, oral, TID anastrozole, 1 mg, oral, Daily apixaban, 5 mg, oral, Q12H KATHARINE bisacodyL, 10 mg, rectal, Nightly bromfenac, 1 drop, ophthalmic, BID canagliflozin, 100 mg, oral, Before breakfast cholecalciferol, 1,000 Units, oral, Daily cyanocobalamin, 250 mcg, oral, Daily dorzolamide, 1 drop, each eye, BID flecainide, 50 mg, oral, BID furosemide, 40 mg, oral, Daily insulin glargine, 8 Units, subcutaneous, QAM insulin lispro, 1-3 Units, subcutaneous, Nightly insulin lispro, 1-5 Units, subcutaneous, TID with meals levothyroxine, 75 mcg, oral, Daily - 0600 linaCLOtide, 290 mcg, oral, Before breakfast magnesium hydroxide, 30 mL, oral, Daily multivitamin with minerals, 1 tablet, oral, Daily pantoprazole DR, 40 mg, oral, Daily potassium chloride ER, 20 mEq, oral, QID rosuvastatin, 10 mg, oral, Nightly sodium chloride 0.9%, 0.5-20 mL, intra-catheter, Q12H spironolactone, 25 mg, oral, Daily verapamil SR, 120 mg, oral, Nightly Continuous Infusions: Sodium Date Value Ref Range Status 12/27/2020 135 135 - 145 mmol/L Final Potassium, pl Date Value Ref Range Status 12/27/2020 4.5 3.3 - 4.9 mmol/L Final BUN Date Value Ref Range Status 12/27/2020 19 8 - 25 mg/dL Final Creatinine Date Value Ref Range Status 12/27/2020 0.72 0.60 - 1.10 mg/dL Final Magnesium Date Value Ref Range Status 12/27/2020 3.7 (H) 1.4 - 2.5 mg/dL Final Calcium Date Value Ref Range Status 12/27/2020 9.6 8.5 - 10.3 mg/dL Final Lab Results Component Value Date HGBA1C 7.4 (H) 10/17/2015 POC Glucose: Results for LOC ANDERSON ( ) as of 12/27/2020 08:52 Ref. Range 12/27/2020 02:49 12/27/2020 05:28 12/27/2020 07:29 Glucose Latest Ref Range: 70 - 199 mg/dL 148 Glucose, POC Latest Ref Range: 71 - 98 mg/dL 136 (H) 131 (H) Nursing Assessment: Last BM Date: 12/27/20 Bowel Sounds (All Quadrants): Hypoactive Damion Scale Score: 18 Skin Integrity: Redness Type of Wound (LDA): Wound Nutrition Follow-Up : 01/01/21 Kyleigh Robles, MS RD LDN * Nina Larsen MD - 12/27/2020 8:38 AM CDT [facility] Hospitalist Service Progress Note Patient Name: Loc Anderson Patient : 1940 Age/Sex: 80 y.o. female Room/Bed: [id number] Admission Date/Time: 12/20/2020 3:09 PM Date: 12/27/2020 Time: 8:38 AM Chief Complaint: Weakness Subjective: Patient is an 80-year-old woman with diastolic CHF, hypertension, paroxysmal atrial fibrillation, hypertension and diabetes admitted with anemia and UTI. Now having problems with constipation. Today the patient states she is still having problems with constipation. Did have some small, hard stool after soapsuds enema yesterday. No nausea or vomiting. Does feel discomfort from constipation.No chest pain or shortness of breath. No headache or dizziness. Allergies: Allergies Allergen Reactions ??? Donepezil Other (See comments) Reaction: unknown reaction, , , Reaction: yeast infection, ??? Black Pepper ??? Diltiazem Edema, Diarrhea and Other (See comments) Reaction: edema, , Reaction: diarrhea, , , Reaction: ankles swell, ??? Fluticasone Other (See comments) Reaction: colon problems, ??? Metformin Diarrhea Reaction: diarrhea, , ??? Salmeterol Other (See comments) Reaction: colon problems, Current Medication List: Scheduled Meds:amitriptyline, 50 mg, oral, Nightly amoxicillin, 500 mg, oral, TID anastrozole, 1 mg, oral, Daily apixaban, 5 mg, oral, Q12H KATHARINE bisacodyL, 10 mg, rectal, Nightly bromfenac, 1 drop, ophthalmic, BID canagliflozin, 100 mg, oral, Before breakfast cholecalciferol, 1,000 Units, oral, Daily cyanocobalamin, 250 mcg, oral, Daily dorzolamide, 1 drop, each eye, BID flecainide, 50 mg, oral, BID furosemide, 40 mg, oral, Daily insulin glargine, 8 Units, subcutaneous, QAM insulin lispro, 1-3 Units, subcutaneous, Nightly insulin lispro, 1-5 Units, subcutaneous, TID with meals levothyroxine, 75 mcg, oral, Daily - 0600 linaCLOtide, 290 mcg, oral, Before breakfast magnesium hydroxide, 30 mL, oral, Daily multivitamin with minerals, 1 tablet, oral, Daily pantoprazole DR 40 mg, oral, Daily potassium chloride ER, 20 mEq, oral, QID rosuvastatin, 10 mg, oral, Nightly sodium chloride 0.9%, 0.5-20 mL, intra-catheter, Q12H spironolactone, 25 mg, oral, Daily verapamil SR, 120 mg, oral, Nightly Continuous Infusions: PRN Meds:??? acetaminophen ??? ALPRAZolam ??? dextrose OR dextrose ??? docusate sodium ??? glucagon ??? ondansetron ODT ??? senna-docusate ??? sodium chloride 0.9% Objective: Vitals: Vitals: 12/27/20 0400 12/27/20 0600 12/27/20 0726 12/27/20 0800 BP: (!) 120/44 BP Location: Right arm Patient Position: Lying Pulse: 74 72 72 72 Resp: 18 Temp: 36.5 ??C (97.7 ??F) TempSrc: Temporal SpO2: 95% Weight: Height: Physical Exam: General: Awake and alert. No acute distress. HEENT: EOMI, MONTY. Sclerae non icteric. Mucous membranes moist. Neck: Supple without lymphadenopathy. CV: Heart regular rate and rhythm. No murmur. Respiratory: Lungs clear to auscultation bilaterally. No rales, rhonchi or wheezes. GI: Abdomen with bowel sounds present, soft, nontender but with some fullness noted. : Not examined. Skin: No rashes or lesions. Extremities: No edema of lower extremities. Musculoskeletal: No joint erythema, edema or tenderness. Neurologic: Oriented x 3. Speech clear. Moving all extremities. Psychiatric: Appropriate mood and affect. Labs: Lab Results Component Value Date GLUCOSE 131 (H) 12/27/2020 CALCIUM 9.6 12/27/2020 SODIUM 135 12/27/2020 POTASSIUM 4.5 12/27/2020 CO2 25 12/27/2020 CHLORIDE 103 12/27/2020 BUNSER 19 12/27/2020 CREATININE 0.72 12/27/2020 Lab Results Component Value Date WBC 10.6 (H) 12/27/2020 HGB 9.6 (L) 12/27/2020 HCT 34.3 (L) 12/27/2020 MCV 80.9 (L) 12/27/2020 LABPLAT 268 12/27/2020 Pertinent Labs: I have reviewed the pertinent labs. Radiology: ECG 12 lead Result Date: 12/21/2020 Narrative: Vent Rate: 77 bpm RR Interval: 771 msec [place] Interval: 192 msec QRS Duration: 112 msec QT Interval: 415 msec QTC Interval: 447 msec P-R-T [place]: 46 - -28 - 55 degrees SINUS RHYTHM BORDERLINE LEFT AXIS DEVIATION [QRS AXIS < -20] MODERATE INTRAVENTRICULAR CONDUCTION DELAY [110+ ms QRS DURATION] BORDERLINE ECG No change from prior EKG Electronically Signed By: Landon Valencia MD ECG 12 lead Result Date: 12/21/2020 Narrative: Vent Rate: 81 bpm RR Interval: 736 msec [place] Interval: 162 msec QRS Duration: 119 msec QT Interval: 326 msec QTC Interval: 363 msec P-R-T [place]: -11 - -39 - 35 degrees Probable junctional rhythm LEFT AXIS DEVIATION [QRS AXIS < - 30] PATTERN CONSISTENT WITH PULMONARY DISEASE MODERATE INTRAVENTRICULAR CONDUCTION DELAY [110+ ms QRS DURATION] NONSPECIFIC ST \T\ T-WAVE ABNORMALITY Compared to prior EKG, nonspecific ST/T changes are new and junctional rhythm has replaced sinus rhythm. Electronically Signed By: Dr Darin Corona XR Wrist Left 3 or More Views Result Date: 12/25/2020 Narrative: EXAM DESCRIPTION: XR WRIST LEFT 3 OR MORE VIEWS REASON FOR STUDY: Patient states her left wrist became swollen after having an IV removed. Patient initially had diarrhea 1-2 weeks ago and is now having abdominal distention. Duration: 3-4 days TECHNIQUE: Frontal, lateral, and oblique radiographic views acquired of the left wrist. COMPARISON: None FINDINGS: BONES/JOINTS: There is no fracture or bone destruction. Severe arthritis is seen in the 1st carpometacarpal joint. SOFT TISSUES: Diffuse swelling OTHER: No other significant finding. IMPRESSION: 1. 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 No fracture or bone destruction. 3. Diffuse swelling THIS IS AN ELECTRONICALLY VERIFIED FINAL REPORT 12/25/2020 4:30 PM - Electronically signed by Keyshawn Cummings M.D. LEIGH: LEIGH Report ID: [id number] Reading Location: [id number] XR Abdomen Ap 1 Vw Result Date: 12/25/2020 Narrative: EXAM DESCRIPTION: XR ABDOMEN AP 1 VIEW REASON FOR STUDY: Patient states her left wrist became swollen after having an IV removed. Patient originally had diarrhea 1-2 weeks ago and is now having abdominal distention. Duration: 3-4 days TECHNIQUE: Supine radiographic view of the abdomen acquired. COMPARISON: None FINDINGS: BOWEL GAS PATTERN: Scattered non-dilated small bowel loops. Nonobstructive pattern. There is a very large amount of stool throughout the colon. SOFT TISSUES: No significant abnormal calcifications. BONES: No significant abnormality. OTHER: No other significant finding. IMPRESSION: Very large amount of stool throughout the colon all the way to the rectum. THIS IS AN ELECTRONICALLY VERIFIED FINAL REPORT 12/25/2020 4:31 PM - Electronically signed by Keyshawn Cummings M.D. LEIGH: LEIGH Report ID: [id number] Reading Location: [place] [id number] CT Abdomen Pelvis W Contrast Result Date: 12/20/2020 Narrative: EXAM DESCRIPTION: CT ABDOMEN PELVIS W CONTRAST REASON FOR STUDY: asthma, PNA, CAD, CHF, A-fib, HTN, HLD, and DM who presents to the ED via EMS and accompanied by her daughter c/o generalized weakness for approximately 3 days PSH cade hernia ike 100 ml optiray 53344 g r FA Duration: 3 days TECHNIQUE: CT scan of the abdomen and pelvis performed with intravenous and without oral contrastusing helical scanning technique with dynamic intravenous contrast injection. Reconstructed coronaland sagittal MPR images reviewed. All images stored on PACS. Automated exposure control was used asa dose optimization technique for this examination. CONTRAST TYPE/DOSE: 100 mL of Optiray 320 inject ed via right forearm COMPARISON: 11/27/2020 FINDINGS: LOWER CHEST: Coronary artery, aortic valvularand mitral calcifications. Mild cardiomegaly. LIVER: Normal size. No identified cystic or solid masses. GALLBLADDER: Surgically absent. BILE DUCTS: No intrahepatic or extrahepatic ductal dilatation. SPLEEN: Punctate calcifications throughout the spleen consistent with prior granulomatous disease. PANCREAS: No identified cystic or solid masses. No significant calcifications. No adjacent inflammation or peripancreatic fluid collections. Pancreatic duct not dilated. ADRENALS: Normal. KIDNEYS/URINARY TRACT: No identified significant cystic or solid masses. No visualized stones. No hydronephrosis or hydroureter. Symmetric enhancement. The urinary bladder is decompressed with a Schmitt catheter in place. GI: Moderate amount of formed stool throughout the colon. No dilated bowel loops. No obvious wall thickening. No significant diverticular disease. The appendix is not discretely visualized although there are no secondary signs of inflammatory change within the right lower quadrant. PERITONEUM: No ascites or free air. RETROPERITONEUM: No mass or adenopathy. REPRODUCTIVE: Uterus is surgicallyabsent. VASCULATURE: Calcified atheroma of the abdominal aorta and its branch vessels. MUSCULOSKELETAL: Levoconvex scoliotic curvature of the lumbar spine with multilevel degenerative change. OTHER: Fat containing right femoral hernia. IMPRESSION: Moderate amount of stool throughout the colon likely due to underlying constipation. Otherwise, no acute findings to explain the patient's current symptoms. THIS IS AN ELECTRONICALLY VERIFIED FINAL REPORT 12/20/2020 7:38 PM - Electronically signed by Deborah Garcia M.D. TS: TS Report ID: [id number] Reading Location: [id number] XR Chest 1 Vw Portable Result Date: 12/20/2020 Narrative: EXAM DESCRIPTION: XR CHEST 1 VIEW REASON FOR STUDY: Generalized weakness over the past 3days. Leg swelling. Nonsmoker with a h/o sleep apnea, asthma, PNA, CAD, CHF, A-fib, HTN, HLD, and DM who presents to the ED via EMS and accompanied by her daughter c/o generalized weakness for approximately 3 days. Pt's daughter reports pt taking multiple water pills daily for swelling in pt's legsthat has improved. She states pt has a caregiver that comes to the home a couple times per day. Today, daughter of pt states a home nurse came evaluate pt's previous UTI who states pt was feeling dizzy upon standing up this morning. Pt states they are thinking it may be A-fib. I couldn't walk. I could sit down and be okay, but as soon as I stand up my face would be real hot.Duration: today TECHNIQUE: Frontal radiographic view of the chest acquired. COMPARISON: 03/06/2019 and 04/07/2018 FINDINGS: LUNGS/PLEURA: Pulmonary vascularity appears normal. No infiltrate or effusion. Costophrenic angles are sharp. HEART/MEDIASTINUM: Senescent change of the aorta. Otherwise, normal cardiomediastinal silhouette. HARDWARE/LINES/TUBES: None. BONES: No acute findings. OTHER: Gilby are seen of the leftlower chest similar to prior. IMPRESSION: 1. No acute findings or infiltrate. THIS IS AN ELECTRONICALLY VERIFIED FINAL REPORT 12/20/2020 4:42 PM - Electronically signed by Noah Cuba M.D. MJ: RENETTA Report ID: [id number] Reading Location:[place] [address] US Carotids Duplex Bilateral Result Date: 12/25/2020 Narrative: EXAM DESCRIPTION: US CAROTIDS DUPLEX BILATERAL REASON FOR STUDY: Generalized weakness. Rule out stenosis. HTN.Duration: 9 days TECHNIQUE: Kraus scale, color Doppler and spectral Doppler imaging were performed. Velocity criteria are extrapolated from diameter as defined by the Society of R adiologists in Ultrasound Consensus Conference. All velocity measurements are in cm/sec. COMPARISON: None FINDINGS: Right: Mild intimal thickening and plaque are seen. Distal CCA Peak Systolic Velocity: 63 Distal CCA End Diastolic Velocity: 9 Peak ICA Systolic Velocity: 84 ICA End Diastolic Velocity: 14 Peak ICA/CCA Systolic Ratio: 1.32 Right Vertebral Artery: Antegrade direction of flow. Left: Mild intimal thickening and plaque are seen. Distal CCA Peak Systolic Velocity: 62 Distal CCA End Diastolic Velocity: 7 Peak ICA Systolic Velocity: 100 ICA End Diastolic Velocity: 15 Peak ICA/CCA Systolic Ratio: 1.62 Left Vertebral Artery: Antegrade direction of flow. IMPRESSION: 1. Velocities correspond to a less than 50percent diameter stenosis of the right ICA. 2. Velocities correspond to a less than 50percent diameter stenosis of the left ICA. 3. Antegrade direction of flow of the bilateral vertebral arteries. REFERENCE: Consensus Panel Kraus-Scale and Doppler US Criteria for Diagnosis of ICA Stenosis. No stenosis: ICA PSV <125*, 0 percent plaque, ICA/CCA PSV Ratio <2.0, ICA EDV <40*. <50 percent stenosis: ICA PSV <125*, <50 percent plaque, ICA/CCA PSV Ratio <2.0, ICA EDV <40*. 50-69 percent stenosis: ICA PSV 125-230*, >=50 percent plaque, ICA/CCA PSV Ratio 2.0- 4.0, ICA EDV 40-100*. >=70 percent but less than near occlusion >230, >=50 percent plaque, ICA/CAA PSV Ratio >4.0, ICA EDV >100*. *cm/sec Plaque estimate (diameter reduction) with kraus-scale and color Doppler US. RSNA 2002 THIS IS AN ELECTRONICALLY VERIFIED FINAL REPORT 12/25/2020 9:30 AM - Electronically signed by Hilario Bolanos M.D. AG: SORAIDA Report ID: [id number] Reading Location: [place] [address] Microbiology: COVID-19 RNA negative. H pylori negative. Urine culture positive for Pseudomonas aeruginosa and 2 species of Enterococcus faecalis. ASSESSMENT AND PLAN: Principal Problem: Normocytic anemia Active Problems: Urinary tract bacterial infections Paroxysmal atrial fibrillation (CMS/HCC) (HCC) History of pulmonary embolism Type 2 diabetes mellitus (HCC) Chronic diastolic (congestive) heart failure (HCC) Anxiety CAD (coronary artery disease) HTN (hypertension) Occult blood in stools Hypophosphatemia Anxiety Constipation Pain and swelling of left wrist Resolved Problems: Hypokalemia Constipation Still having issues with constipation. Significant stool seen on imaging from 12/25/2020. Did receive soapsuds enema last night with small amount of hard stool. Still only having hard stools this afternoon. I was able to communicate with Dr. Patel. Plan for flexible sigmoidoscopy today and disimpaction if needed. Continue current Linzess. Will continue to monitor. Should be ready for discharge once having regular bowel movements. Discussed with daughter by phone in room. Normocytic anemia Appreciate help from GI and Hematology/Oncology during this stay. Noted iron deficiency. Completed 3 days of IV iron. No current bleeding. EGD was negative for bleeding. ASA remains on hold. Hemoglobin stable at 9.6 today. Will continue vitamin B12 as well as Protonix. Continue to monitor. ?? Urinary tract bacterial infections Urine culture as noted above. Infectious Disease has been following and appreciate input. Patient now on oral amoxicillin to complete treatment after completing 6 days of IV cefepime. Will continue to follow. ?? Paroxysmal atrial fibrillation (CMS/HCC) (HCC) Remains stable. Heart rate controlled. Will continue flecainide. Remains on Eliquis for anticoagulation. Will monitor. ?? Pain and swelling of left wrist No further complaint. Imaging from 12/25/2020 with no acute fracture. Will monitor. ?? Type 2 diabetes mellitus (HCC) Glucose reviewed on 12/27/2020. Glucose within acceptable range. Will continue Invokana. Continue to monitor. Does have sliding scale insulin available as needed. ?? Chronic diastolic (congestive) heart failure (HCC) No exacerbation. Will continue spironolactone and furosemide. Monitor and adjust treatment if needed. ?? Essential hypertension Blood pressure reviewed on 12/27/2020. Blood pressure remains stable in acceptable range. Continue verapamil, spironolactone and furosemide. Will monitor. Adjust treatment as needed. ?? CAD (coronary artery disease) Stable. No acute issue. Continue rosuvastatin. ASA on hold. ?? History of pulmonary embolism Stable. Continue Eliquis. ?? Anxiety Mood remain stable. Continue alprazolam as needed. ?? Hypokalemia Resolved. Potassium stable at 4.5 today. Continue replacement. Will monitor. Adjust treatment as needed. ?? DVT PPx On Eliquis as noted above. ? MDM: Moderate. Nina Larsen MD Director of Family Medicine Inpatient Services Hot [employer] Furnace Installer Repairer, [facility] 12/27/2020 8:38 AM * Neeta Patel MD - 12/26/2020 4:06 PM CDT GI Daily Progress Note Date of visit: 12/26/2020 Subjective: Last 24 hours records reviewed. Patient is doing the same. She looks comfortable. She still have nobowel movement. No bowel movement now for at least 4 days. She had mineral oil enema yesterday along with her regimen but no benefit. Otherwise the patient feels comfortable. She has no pain. No nausea. No vomiting. Hemoglobin is stable. No dysphagia. Her appetite is good. ROS: GENERAL: no fever, appetite is good. RESPIRATORY: no shortness of breath, no cough. SKIN: no itching, no rash. EYES: no redness, no itching, no visual changes. Objective: Vital signs in last 24 hours: Temp: [36.2 ??C (97.1 ??F)-37.1 ??C (98.7 ??F)] 36.4 ??C (97.6 ??F) Pulse: [61-85] 75 Resp: [18] 18 BP: (91-122)/(43-71) 114/43 Intake/Output last 3 shifts: I/O last 3 completed shifts: In: 456 [P.O.:360; I.V.:96] Out: 2300 [Urine:2300] Physical Exam: Patient is alert and oriented to time and place and self. Patient appears comfortable. Eyes: no jaundice. Lymphatics: no submandibular and no subclavicular lymphadenopathy. Lungs: CTA anteriorly. ENT: no mouth ulcers. GI: abdomen is soft, no distention, no tenderness, bowel sounds positive. Musculos keletal: no joint swelling, no edema. Skin: no rash. Psych: mood seems normal. No confusion. Labs and Imaging: Labs and X rays reviewed. Recent Results (from the past 24 hour(s)) POCT glucose Collection Time: 12/25/20 5:14 PM Result Value Ref Range Glucose, POC 144 (H) 71 - 98 mg/dL POCT glucose Collection Time: 12/25/20 9:14 PM Result Value Ref Range Glucose, POC 185 (H) 71 - 98 mg/dL POCT glucose Collection Time: 12/26/20 3:26 AM Result Value Ref Range Glucose, POC 176 (H) 71 - 98 mg/dL Basic metabolic panel Collection Time: 12/26/20 4:35 AM Result Value Ref Range Sodium 135 135 - 145 mmol/L Potassium, pl 4.9 3.3 - 4.9 mmol/L Chloride 105 97 - 110 mmol/L CO2 23 22 - 32 mmol/L Anion gap 7 2 - 15 mmol/L BUN 18 8 - 25 mg/dL Creatinine 0.66 0.60 - 1.10 mg/dL Glucose 135 70 - 199 mg/dL Calcium 9.5 8.5 - 10.3 mg/dL CBC without differential Collection Time: 12/26/20 4:35 AM Result Value Ref Range WBC 9.8 3.8 - 9.9 K/cumm Hgb 9.1 (L) 11.9 - 15.5 g/dL Hct 31.8 (L) 35.6 - 45.5 % Plt 263 150 - 400 K/cumm MPV 9.9 9.1 - 12.3 fL RBC 3.98 3.90 - 5.20 M/cumm MCV 79.9 (L) 81.3 - 96.4 fL MCH 22.9 (L) 27.1 - 33.3 pg MCHC 28.6 (L) 32.3 - 35.7 g/dL RDW CV 20.4 (H) 11.1 - 14.9 % RDW SD 56.9 (H) 35.7 - 48.1 fL NRBC abs 0.02 (H) 0.00 - 0.01 K/cumm eGFR Collection Time: 12/26/20 4:35 AM Result Value Ref Range eGFR 82 mL/min/1.73 m2 POCT glucose Collection Time: 12/26/20 8:15 AM Result Value Ref Range Glucose, POC 145 (H) 71 - 98 mg/dL POCT glucose Collection Time: 12/26/20 11:57 AM Result Value Ref Range Glucose, POC 142 (H) 71 - 98 mg/dL No results found. GI IMPRESSION: 1. Chronic constipation. Patient still have but no bowel movement despite being on Linzess, milk ofmagnesium daily, Dulcolax suppositories daily, and mineral oil enema yesterday. This is likely multifactorial secondary to poor overall functional status and effect of medications plus functional slow gut. 2. Anemia. No source of upper GI bleeding. No sign of overt GI bleeding. GI PLAN/RECOMMENDATIONS: 1. Will continue the same regiment and will add soapsuds enema today. If no response then examination tomorrow under sedation with possible disimpaction. 2. Will keep NPO after midnight. Will keep clear liquid diet for now until midnight. Will give her 1 dose of magnesium citrate as well. Voice recognition software Reel[employer] Direct was used dictate and transcribe this document. Tile And Marble Installer variances may occur. Despite proofreading, typographical errors may occur. Neeta Patel MD * Jaylin Reynolds, PESTICIDE USE MEDICAL COORDINATOR - 12/26/2020 11:20 AM CDT Progress Note Infectious Diseases Chief complaint: UTI Subjective Patient denies any current urinary complaints, suprapubic or flank discomfort. No fever. Initial leukocytosis resolved. Objective Vitals: 12/26/20 0743 BP: (!) 116/44 Pulse: 68 Resp: 18 Temp: 36.2 ??C (97.1 ??F) SpO2: 98% Constitutional: Alert, oriented x3. In no acute distress Eyes: Sclerae anicteric, no conjunctival erythema Lungs: Clear breath sounds, no crackles, no wheezes Heart: Regular rate and rhythm, no murmurs Abdomen: Bowel sounds present, soft, nontender : Schmitt catheter in place with clear dark yellow urine Skin: Warm and dry, No rashes Extremities: Mild BLE edema Neuro: No motor deficit Psych: No anxiety Current Medications: Current Facility-Administered Medications Medication Dose Route Frequency Provider Last Rate Last Admin ??? acetaminophen (TYLENOL) tablet 500 mg 500 mg oral Q4H PRN Neeta Patel MD 500 mg at 12/25/202250 ??? ALPRAZolam (XANAX) tablet 0.25 mg 0.25 mg oral BID PRN Wayne Snow MD 0.25 mg at 12/25/202251 ??? amitriptyline (ELAVIL) tablet 50 mg 50 mg oral Nightly Neeta Patel MD 50 mg at 12/25/202002 ??? amoxicillin (AMOXIL) tablet/capsule 500 mg 500 mg oral TID Willie Aly MD 500 mgat 12/26/20957 ??? anastrozole (ARIMIDEX) tablet 1 mg 1 mg oral Daily Neeta Patel MD 1 mg at 12/26/20957 ??? apixaban (ELIQUIS) tablet 5 mg 5 mg oral Q12H [facility] Neeta Patel MD 5 mg at 12/26/20957 ??? bisacodyL (DULCOLAX) suppository 10 mg 10 mg rectal Nightly Neeta Patel MD 10 mg at 12/25/202002 ??? bromfenac 0.07 % drops 1 drop 1 drop ophthalmic BID Neeta Patel MD 1 drop at 12/26/20 1000 ??? canagliflozin (INVOKANA) tablet 100 mg 100 mg oral Before breakfast Neeta Patel MD 100mg at 12/26/20 0610 ??? cholecalciferol (VITAMIN D-3) tablet 1,000 Units 1,000 Units oral Daily Neeta Patel MD1,000 Units at 12/26/20 0957 ??? cyanocobalamin (Vitamin B-12) tablet 250 mcg 250 mcg oral Daily Neeta Patel MD 250 mcgat 12/26/20 0958 ??? dextrose gel in packet 15 g 15 g oral Q15 Min PRN Neeta Patel MD Or ??? dextrose (D10W) 10% bolus 250 mL 250 mL intravenous Q15 Min PRN Neeta Patel MD ??? docusate sodium (COLACE) capsule 100 mg 100 mg oral BID PRN Neeta Patel MD 100 mg at 12/26/20 0607 ??? dorzolamide (TRUSOPT) 2 % ophthalmic solution 1 drop 1 drop each eye BID Neeta Patel MD 1 drop at 12/25/202004 ??? flecainide (TAMBOCOR) tablet 50 mg 50 mg oral BID Neeta Patel MD 50 mg at 12/26/20 0959 ??? furosemide (LASIX) tablet 40 mg 40 mg oral Daily Neeta Patel MD 40 mg at 12/26/20 0958 ??? glucagon injection 1 mg 1 mg intramuscular Q30 Min PRN Neeta Patel MD ??? insulin glargine (LANTUS, BASAGLAR, SEMGLEE) 100 unit/mL (3 mL) pen injection 8 Units 8 Units subcutaneous QAM Neeta Patel MD 8 Units at 12/26/20 1001 ??? insulin lispro (HumaLOG, ADMELOG) 100 unit/mL pen injection 1-3 Units 1-3 Units subcutaneous Nightly Neeta Patel MD ??? insulin lispro (HumaLOG, ADMELOG) 100 unit/mL pen injection 1-5 Units 1-5 Units subcutaneous TID with meals Neeta Patel MD 1 Units at 12/26/20 1002 ??? levothyroxine (SYNTHROID) tablet 75 mcg 75 mcg oral Daily - 0600 Neeta Patel MD 75 mcgat 12/26/20 0607 ??? linaCLOtide (LINZESS) capsule 290 mcg 290 mcg oral Before breakfast Neeta Patel MD 290mcg at 12/26/20 0610 ??? magnesium hydroxide (MILK OF MAGNESIA) 80 mg/mL (33.3 mg/mL as elemental magnesium) oral suspension 30 mL 30 mL oral Daily Neeta Patel MD 30 mL at 12/26/20 09 ??? multivit qivbqtdw-spda-ZV-calcium (THERA-M) tablet 1 tablet 1 tablet oral Daily Neeta Patel MD 1 tablet at 12/26/20957 ??? ondansetron ODT (ZOFRAN-ODT) disintegrating tablet 4 mg 4 mg oral Q4H PRN Wayne Snow MD 4 mg at 12/25/20 1230 ??? pantoprazole DR (PROTONIX) extended release tablet 40 mg 40 mg oral Daily Neeta Patel MD 40 mg at 12/26/20957 ??? potassium chloride ER (KLOR-CON) extended release tablet 20 mEq 20 mEq oral QID Neeta Patel MD 20 mEq at 12/26/20957 ??? rosuvastatin (CRESTOR) tablet 10 mg 10 mg oral Nightly Neeta Patel MD 10 mg at 12/25/202002 ??? senna-docusate (PERICOLACE) 8.6-50 mg per tablet 1 tablet 1 tablet oral BID PRN Wayne Snow MD 1 tablet at 12/26/20 0607 ??? sodium chloride 0.9% flush 0.5-20 mL 0.5-20 mL intra-catheter PRN Neeta Patel MD ??? sodium chloride 0.9% flush 0.5-20 mL 0.5-20 mL intra-catheter Q12H Wayne Snow MD 10 mLat 12/26/20 1002 ??? spironolactone (ALDACTONE) tablet 25 mg 25 mg oral Daily Neeta Patel MD 25 mg at 12/26/20 0957 ??? verapamil SR (CALAN SR) extended release tablet 120 mg 120 mg oral Nightly Neeta Patel MD 120 mg at 12/25/202002 Allergies: Allergies Allergen Reactions ??? Donepezil Other (See comments) Reaction: unknown reaction, , , Reaction: yeast infection, ??? Black Pepper ??? Diltiazem Edema, Diarrhea and Other (See comments) Reaction: edema, , Reaction: diarrhea, , , Reaction: ankles swell, ??? Fluticasone Other (See comments) Reaction: colon problems, ??? Metformin Diarrhea Reaction: diarrhea, , ??? Salmeterol Other (See comments) Reaction: colon problems, Social History Social History Socioeconomic History ??? Marital status: Spouse name: Not on file ??? Number of children: Not on file ??? Years of education: Not on file ??? Highest education level: Not on file Occupational History ??? Not on file Tobacco Use ??? Smoking status: Never Smoker ??? Smokeless tobacco: Never Used Substance and Sexual Activity ??? Alcohol use: No ??? Drug use: No ??? Sexual activity: Defer control/protection: Post-menopausal Other Topics Concern ??? Not on file Social History Narrative Lives at home. Social Determinants of Health Financial Resource Strain: Low Risk ??? Difficulty of Paying Living Expenses: Not very hard Food Insecurity: No Food Insecurity ??? Worried About Running Out of Food in the Last Year: Never true ??? Ran Out of Food in the Last Year: Never true Transportation Needs: No Transportation Needs ??? Lack of Transportation (Medical): No ??? Lack of Transportation (Non-Medical): No Physical Activity: ??? Days of Exercise per Week: ??? Minutes of Exercise per Session: Stress: ??? Feeling of Stress : Social Connections: Moderately Isolated ??? Frequency of Communication with Friends and Family: More than three times a week ??? Frequency of Social Gatherings with Friends and Family: More than three times a week ??? Attends Sabianist Services: Never ??? Active Member of Clubs or Organizations: No ??? Attends Club or Organization Meetings: Never ??? Marital Status: Intimate Partner Violence: ??? Fear of Current or Ex-Partner: ??? Emotionally Abused: ??? Physically Abused: ??? Sexually Abused: Family Medical History Family History Problem Relation Age of Onset ??? Breast cancer Mother Cancer, breast; /Cancer -breast; ??? Heart failure Father Congestive heart failure; ??? Hypertension Brother Hypertension; ??? Hypertension Brother Hypertension; Imaging No results found. Labs Recent Results (from the past 24 hour(s)) POCT glucose Collection Time: 12/25/20 12:12 PM Result Value Ref Range Glucose, POC 175 (H) 71 - 98 mg/dL POCT glucose Collection Time: 12/25/20 5:14 PM Result Value Ref Range Glucose, POC 144 (H) 71 - 98 mg/dL POCT glucose Collection Time: 12/25/20 9:14 PM Result Value Ref Range Glucose, POC 185 (H) 71 - 98 mg/dL POCT glucose Collection Time: 12/26/20 3:26 AM Result Value Ref Range Glucose, POC 176 (H) 71 - 98 mg/dL Basic metabolic panel Collection Time: 12/26/20 4:35 AM Result Value Ref Range Sodium 135 135 - 145 mmol/L Potassium, pl 4.9 3.3 - 4.9 mmol/L Chloride 105 97 - 110 mmol/L CO2 23 22 - 32 mmol/L Anion gap 7 2 - 15 mmol/L BUN 18 8 - 25 mg/dL Creatinine 0.66 0.60 - 1.10 mg/dL Glucose 135 70 - 199 mg/dL Calcium 9.5 8.5 - 10.3 mg/dL CBC without differential Collection Time: 12/26/20 4:35 AM Result Value Ref Range WBC 9.8 3.8 - 9.9 K/cumm Hgb 9.1 (L) 11.9 - 15.5 g/dL Hct 31.8 (L) 35.6 - 45.5 % Plt 263 150 - 400 K/cumm MPV 9.9 9.1 - 12.3 fL RBC 3.98 3.90 - 5.20 M/cumm MCV 79.9 (L) 81.3 - 96.4 fL MCH 22.9 (L) 27.1 - 33.3 pg MCHC 28.6 (L) 32.3 - 35.7 g/dL RDW CV 20.4 (H) 11.1 - 14.9 % RDW SD 56.9 (H) 35.7 - 48.1 fL NRBC abs 0.02 (H) 0.00 - 0.01 K/cumm eGFR Collection Time: 12/26/20 4:35 AM Result Value Ref Range eGFR 82 mL/min/1.73 m2 POCT glucose Collection Time: 12/26/20 8:15 AM Result Value Ref Range Glucose, POC 145 (H) 71 - 98 mg/dL Assessment/Plan Principal Problem: Normocytic anemia Active Problems: Hypokalemia Urinary tract bacterial infections Paroxysmal atrial fibrillation (CMS/HCC) (HCC) History of pulmonary embolism Type 2 diabetes mellitus (HCC) Chronic diastolic (congestive) heart failure (HCC) Anxiety CAD (coronary artery disease) HTN (hypertension) Occult blood in stools Hypophosphatemia Anxiety Constipation Pain and swelling of left wrist Loc Anderson is an 80-year old female with history of HTN, atrial fibrillation, CHF, DM type II, and chronic indwelling Schmitt catheter admitted with new onset weakness associated with worsening anemia. Work-up negative for GI bleed. Received several units of PRBCs. On iron replacement with clinical improvement. Hgb stable at 9.1. GI service and primary team managing. Urine culture this admissiongrew Pseudomonas aeruginosa and 2 strains of ampicillin-sensitive Enterococcus faecalis. Suspect possible chronic colonization given presence of Schmitt catheter. She completed 6 days of IV cefepime. Now on day #2 of 5-day course of oral amoxicillin. She is afebrile and otherwise stable. Okay to disch arge anytime from ID perspective. Follow-up with PCP. Jaylin Reynolds NP [facility] [phone] * Melody Joseph TRIPE WASHER - 12/26/2020 9:20 AM CDT Physical Therapy 12/26/20 0737 PT Last Visit Session Type Treatment Pain Assessment Pain Assessment No/denies pain Bed Mobility 1 Bed Mobility From 1 Supine Bed Mobility Type 1 To Bed Mobility to 1 Edge of bed Level of Assistance 1 Moderate Assist Bed Mobility Comments 1 needs assist with bilat le Transfer 1 Transfer From 1 Bed;Sit Transfer Type 1 To and from Transfer to 1 Stand Technique 1 Sit to stand;Stand to sit Transfer Device 1 Wheeled walker Transfer Level of Assistance 1 Maximum Assist;Moderate Assist Trials/Comments 1 3 trials to stand Transfers 2 Transfer From 2 Bed Transfer Type 2 To Transfer to 2 Chair without arms Technique 2 Stand pivot Transfer Device 2 Wheeled walker Transfer Level of Assistance 2 Moderate Assist;Maximum Assist Ambulation 1 Ambulation Comments 1 unable to walk this date legs not working Assessment Prognosis Good Problem List Decreased strength;Decreased endurance;Decreased mobility Plan Plan If this is the last note, consider this the discharge summary Recommendation/Plan PT Recommendation/Plan Home with 24 hour supervision * Nina Larsen MD - 12/26/2020 8:33 AM CDT [facility] Hospitalist Service Progress Note Patient Name: Loc Anderson Patient : 1940 Age/Sex: 80 y.o. female Room/Bed: [id number] Admission Date/Time: 12/20/2020 3:09 PM Date: 12/26/2020 Time: 8:33 AM Chief Complaint: Weakness Subjective: Patient is an 80-year-old woman with diastolic CHF, hypertension, paroxysmal atrial fibrillation, hypertension and diabetes admitted with anemia and UTI. Today the patient states she feels weak today. Still no significant bowel movement. No chest pain or shortness of breath. No abdominal pain or nausea. No headache or dizziness. Allergies: Allergies Allergen Reactions ??? Donepezil Other (See comments) Reaction: unknown reaction, , , Reaction: yeast infection, ??? Black Pepper ??? Diltiazem Edema, Diarrhea and Other (See comments) Reaction: edema, , Reaction: diarrhea, , , Reaction: ankles swell, ??? Fluticasone Other (See comments) Reaction: colon problems, ??? Metformin Diarrhea Reaction: diarrhea, , ??? Salmeterol Other (See comments) Reaction: colon problems, Current Medication List: Scheduled Meds:amitriptyline, 50 mg, oral, Nightly amoxicillin, 500 mg, oral, TID anastrozole, 1 mg, oral, Daily apixaban, 5 mg, oral, Q12H KATHARINE bisacodyL, 10 mg, rectal, Nightly bromfenac, 1 drop, ophthalmic, BID canagliflozin, 100 mg, oral, Before breakfast cholecalciferol, 1,000 Units, oral, Daily cyanocobalamin, 250 mcg, oral, Daily dorzolamide, 1 drop, each eye, BID flecainide, 50 mg, oral, BID furosemide, 40 mg, oral, Daily insulin glargine, 8 Units, subcutaneous, QAM insulin lispro, 1-3 Units, subcutaneous, Nightly insulin lispro, 1-5 Units, subcutaneous, TID with meals levothyroxine, 75 mcg, oral, Daily - 0600 linaCLOtide, 290 mcg, oral, Before breakfast magnesium hydroxide, 30 mL, oral, Daily multivitamin with minerals, 1 tablet, oral, Daily pantoprazole DR, 40 mg, oral, Daily potassium chloride ER, 20 mEq, oral, QID rosuvastatin, 10 mg, oral, Nightly sodium chloride 0.9%, 0.5-20 mL, intra-catheter, Q12H spironolactone, 25 mg, oral, Daily verapamil SR, 120 mg, oral, Nightly Continuous Infusions: PRN Meds:??? acetaminophen ??? ALPRAZolam ??? dextrose OR dextrose ??? docusate sodium ??? glucagon ??? ondansetron ODT ??? senna-docusate ??? sodium chloride 0.9% Objective: Vitals: Vitals: 12/26/20 0320 12/26/20 0400 12/26/20 0600 12/26/20 0743 BP: (!) 98/43 (!) 116/44 BP Location: Right arm Right arm Patient Position: Lying Sitting Pulse: 68 68 61 68 Resp: 18 18 Temp: 36.2 ??C (97.2 ??F) 36.2 ??C (97.1 ??F) TempSrc: Temporal Temporal SpO2: 92% 98% Weight: Height: Physical Exam: General: Awake and alert. No acute distress. HEENT: EOMI, MONTY. Sclerae non icteric. Mucous membranes moist. Neck: Supple without lymphadenopathy. No carotid bruits. CV: Heart regular rate and rhythm. No murmur. Respiratory: Lungs clear to auscultation bilateral out rales, rhonchi or wheezes. GI: Abdomen with bowel sounds present, soft, nontender. No masses palpated. Mildly full. : Schmitt catheter in place with urine clear. Skin: Small bruise seen left wrist. Extremities: No edema of lower extremities. Musculoskeletal: No joint erythema, edema or tenderness. Neurologic: Oriented x 3. Speech clear. Moving all extremities. Psychiatric: Appropriate mood and affect Labs: Lab Results Component Value Date GLUCOSE 145 (H) 12/26/2020 CALCIUM 9.5 12/26/2020 SODIUM 135 12/26/2020 POTASSIUM 4.9 12/26/2020 CO2 23 12/26/2020 CHLORIDE 105 12/26/2020 BUNSER 18 12/26/2020 CREATININE 0.66 12/26/2020 Lab Results Component Value Date WBC 9.8 12/26/2020 HGB 9.1 (L) 12/26/2020 HCT 31.8 (L) 12/26/2020 MCV 79.9 (L) 12/26/2020 LABPLAT 263 12/26/2020 Pertinent Labs: I have reviewed the pertinent labs. Radiology: ECG 12 lead Result Date: 12/21/2020 Narrative: Vent Rate: 77 bpm RR Interval: 771 msec [place] Interval: 192 msec QRS Duration: 112 msec QT Interval: 415 msec QTC Interval: 447 msec P-R-T [place]: 46 - -28 - 55 degrees SINUS RHYTHM BORDERLINE LEFT AXIS DEVIATION [QRS AXIS < -20] MODERATE INTRAVENTRICULAR CONDUCTION DELAY [110+ ms QRS DURATION] BORDERLINE ECG No change from prior EKG Electronically Signed By: Landon Valencia MD ECG 12 lead Result Date: 12/21/2020 Narrative: Vent Rate: 81 bpm RR Interval: 736 msec [place] Interval: 162 msec QRS Duration: 119 msec QT Interval: 326 msec QTC Interval: 363 msec P-R-T [place]: -11 - -39 - 35 degrees Probable junctional rhythm LEFT AXIS DEVIATION [QRS AXIS < - 30] PATTERN CONSISTENT WITH PULMONARY DISEASE MODERATE INTRAVENTRICULAR CONDUCTION DELAY [110+ ms QRS DURATION] NONSPECIFIC ST \T\ T-WAVE ABNORMALITY Compared to prior EKG, nonspecific ST/T changes are new and junctional rhythm has replaced sinus rhythm. Electronically Signed By: Dr Darin Corona ECG 12 lead Result Date: 11/27/2020 Narrative: Vent Rate: 83 bpm RR Interval: 719 msec [place] Interval: 206 msec QRS Duration: 134 msec QT Interval: 405 msec QTC Interval: 445 msec P-R-T [place]: 72 - -54 - 59 degrees SINUS RHYTHM INTRAVENTRICULAR CONDUCTION DELAY [130+ ms QRS DURATION] ABNORMAL ECG No change from prior EKG Electronically Signed By: Landon Valencia MD XR Wrist Left 3 or More Views Result Date: 12/25/2020 Narrative: EXAM DESCRIPTION: XR WRIST LEFT 3 OR MORE VIEWS REASON FOR STUDY: Patient states her left wrist became swollen after having an IV removed. Patient initially had diarrhea 1-2 weeks ago and is now having abdominal distention. Duration: 3-4 days TECHNIQUE: Frontal, lateral, and oblique radiographic views acquired of the left wrist. COMPARISON: None FINDINGS: BONES/JOINTS: There is no fracture or bone destruction. Severe arthritis is seen in the 1st carpometacarpal joint. SOFT TISSUES: Diffuse swelling OTHER: No other significant finding. IMPRESSION: 1. 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 No fracture or bone destruction. 3. Diffuse swelling THIS IS AN ELECTRONICALLY VERIFIED FINAL REPORT 12/25/2020 4:30 PM - Electronically signed by Keyshawn Cummings M.D. LEIGH: LEIGH Report ID: [id number] Reading Location: [id number] XR Abdomen Ap 1 Vw Result Date: 12/25/2020 Narrative: EXAM DESCRIPTION: XR ABDOMEN AP 1 VIEW REASON FOR STUDY: Patient states her left wrist became swollen after having an IV removed. Patient originally had diarrhea 1-2 weeks ago and is now having abdominal distention. Duration: 3-4 days TECHNIQUE: Supine radiographic view of the abdomen acquired. COMPARISON: None FINDINGS: BOWEL GAS PATTERN: Scattered non-dilated small bowel loops. Nonobstructive pattern. There is a very large amount of stool throughout the colon. SOFT TISSUES: No significant abnormal calcifications. BONES: No significant abnormality. OTHER: No other significant finding. IMPRESSION: Very large amount of stool throughout the colon all the way to the rectum. THIS IS AN ELECTRONICALLY VERIFIED FINAL REPORT 12/25/2020 4:31 PM - Electronically signed by Keyshawn Cummings M.D. LEIGH: LEIGH Report ID: [id number] Reading Location: [id number] CT Abdomen Pelvis W Contrast Result Date: 12/20/2020 Narrative: EXAM DESCRIPTION: CT ABDOMEN PELVIS W CONTRAST REASON FOR STUDY: asthma, PNA, CAD, CHF, A-fib, HTN, HLD, and DM who presents to the ED via EMS and accompanied by her daughter c/o generalized weakness for approximately 3 days PSH cade hernia ike 100 ml optiray [id number] g r FA Duration: 3 days TECHNIQUE: CT scan of the abdomen and pelvis performed with intravenous and without oral contrastusing helical scanning technique with dynamic intravenous contrast injection. Reconstructed coronaland sagittal MPR images reviewed. All images stored on PACS. Automated exposure control was used asa dose optimization technique for this examination. CONTRAST TYPE/DOSE: 100 mL of Optiray 320 inject ed via right forearm COMPARISON: 11/27/2020 FINDINGS: LOWER CHEST: Coronary artery, aortic valvularand mitral calcifications. Mild cardiomegaly. LIVER: Normal size. No identified cystic or solid masses. GALLBLADDER: Surgically absent. BILE DUCTS: No intrahepatic or extrahepatic ductal dilatation. SPLEEN: Punctate calcifications throughout the spleen consistent with prior granulomatous disease. PANCREAS: No identified cystic or solid masses. No significant calcifications. No adjacent inflammation or peripancreatic fluid collections. Pancreatic duct not dilated. ADRENALS: Normal. KIDNEYS/URINARY TRACT: No identified significant cystic or solid masses. No visualized stones. No hydronephrosis or hydroureter. Symmetric enhancement. The urinary bladder is decompressed with a Schmitt catheter in place. GI: Moderate amount of formed stool throughout the colon. No dilated bowel loops. No obvious wall thickening. No significant diverticular disease. The appendix is not discretely visualized although there are no secondary signs of inflammatory change within the right lower quadrant. PERITONEUM: No ascites or free air. RETROPERITONEUM: No mass or adenopathy. REPRODUCTIVE: Uterus is surgically absent. VASCULATURE: Calcified atheroma of the abdominal aorta and its branch vessels. MUSCULOSKELETAL: Levoconvex scoliotic curvature of the lumbar spine with multilevel degenerative change. OTHER:Fat containing right femoral hernia. IMPRESSION: Moderate amount of stool throughout the colon likely due to underlying constipation. Otherwise, no acute findings to explain the patient's current symptoms. THIS IS AN ELECTRONICALLY VERIFIED FINAL REPORT 12/20/2020 7:38 PM - Electronically signed by Deborah Garcia M.D. TS: SHANNON Report ID: [id number] Location: [id number] CT Abdomen Pelvis W Contrast Result Date: 11/27/2020 Narrative: EXAM DESCRIPTION: CT ABDOMEN PELVIS W CONTRAST REASON FOR STUDY: Generalized abd pain, nausea, and vomiting started in the evening of 11/26. Hx of cholecystectomy, hysterectomy, left breastcancer with lumpectomy. Pt had blood clot removed in October. 100ml of Optiray 350, 20g iv lt forearmDuration: 11/26 evening TECHNIQUE: CT scan of the abdomen and pelvis performed with intravenous and without oral contrast using helical scanning technique with dynamic intravenous contrast injection. Reconstructed coronal and sagittal MPR images reviewed. All images stored on PACS. Automated exposure control was used as a dose optimization technique for this examination. CONTRAST TYPE/DOSE: 100 of op tiray 350 injected via lt forearm COMPARISON: None FINDINGS: LOWER CHEST: Lung bases clear. Heart size normal. Heavy annular calcification versus prosthesis. Effusion. LIVER/BILIARY: Liver unremarkable. Biliary tree normal in caliber. GALLBLADDER: Absent. SPLEEN: Normal. PANCREAS: Normal. ADRENAL GLANDS: Normal. KIDNEYS/URINARY TRACT: Kidneys and ureters appear normal. Bladder collapsed around Schmitt balloon. GI: Stomach and small bowel appear normal. Large amount of stool throughout the colon. No wall thickening or inflammation. Appendix not confidently distinguished from adjacent bowel. OTHER ABDOMINAL/PELVIS: Major vascular structures are grossly patent and normal in caliber. Moderate athe rosclerotic calcification. 50% stenosis of the right common iliac artery. No enlarged lymph node orfree fluid. MSK: Moderate disc disease and facet arthropathy. BODY WALL: Normal. IMPRESSION: Large amount of stool throughout the colon. No colitis or other acute abnormality identified. THIS IS AN EL ECTRONICALLY VERIFIED FINAL REPORT 11/27/2020 12:42 AM - Electronically signed by Femi Fermin M.D. AR: SPARKLE Report ID: [id number] Reading Location: [id number] XR Chest 1 Vw Portable Result Date: 12/20/2020 Narrative: EXAM DESCRIPTION: XR CHEST 1 VIEW REASON FOR STUDY: Generalized weakness over the past 3days. Leg swelling. Nonsmoker with a h/o sleep apnea, asthma, PNA, CAD, CHF, A-fib, HTN, HLD, and DM who presents to the ED via EMS and accompanied by her daughter c/o generalized weakness for approximately 3 days. Pt's daughter reports pt taking multiple water pills daily for swelling in pt's legsthat has improved. She states pt has a caregiver that comes to the home a couple times per day. Today, daughter of pt states a home nurse came evaluate pt's previous UTI who states pt was feeling dizzy upon standing up this morning. Pt states they are thinking it may be A-fib. I couldn't walk. I could sit down and be okay, but as soon as I stand up my face would be real hot.Duration: today TECHNIQUE: Frontal radiographic view of the chest acquired. COMPARISON: 03/06/2019 and 04/07/2018 FINDINGS: LUNGS/PLEURA: Pulmonary vascularity appears normal. No infiltrate or effusion. Costophrenic angles are sharp. HEART/MEDIASTINUM: Senescent change of the aorta. Otherwise, normal cardiomediastinal silhouette. HARDWARE/LINES/TUBES: None. BONES: No acute findings. OTHER: Gilby are seen of the leftlower chest similar to prior. IMPRESSION: 1. No acute findings or infiltrate. THIS IS AN ELECTRONICALLY VERIFIED FINAL REPORT 12/20/2020 4:42 PM - Electronically signed by Noah Cuba M.D. MJ: RENETTA Report ID: [id number] Reading Location:[id number] US Carotids Duplex Bilateral Result Date: 12/25/2020 Narrative: EXAM DESCRIPTION: US CAROTIDS DUPLEX BILATERAL REASON FOR STUDY: Generalized weakness. Rule out stenosis. HTN.Duration: 9 days TECHNIQUE: Kraus scale, color Doppler and spectral Doppler imaging were performed. Velocity criteria are extrapolated from diameter as defined by the Society of [place] diologists in Ultrasound Consensus Conference. All velocity measurements are in cm/sec. COMPARISON:None FINDINGS: Right: Mild intimal thickening and plaque are seen. Distal CCA Peak Systolic Velocity: 63 Distal CCA End Diastolic Velocity: 9 Peak ICA Systolic Velocity: 84 ICA End Diastolic Velocity: 14 Peak ICA/CCA Systolic Ratio: 1.32 Right Vertebral Artery: Antegrade direction of flow. Left: Mild intimal thickening and plaque are seen. Distal CCA Peak Systolic Velocity: 62 Distal CCA End Diastolic Velocity: 7 Peak ICA Systolic Velocity: 100 ICA End Diastolic Velocity: 15 Peak ICA/CCA Systolic Ratio: 1.62 Left Vertebral Artery: Antegrade direction of flow. IMPRESSION: 1. Velocities correspond to a less than 50percent diameter stenosis of the right ICA. 2. Velocities correspond to a less than 50percent diameter stenosis of the left ICA. 3. Antegrade direction of flow of the bilateral vertebral arteries. REFERENCE: Consensus Panel Kraus-Scale and Doppler US Criteria for Diagnosis of ICAStenosis. No stenosis: ICA PSV <125*, 0 percent plaque, ICA/CCA PSV Ratio <2.0, ICA EDV <40*. <50 percent stenosis: ICA PSV <125*, <50 percent plaque, ICA/CCA PSV Ratio <2.0, ICAEDV <40*. 50-69 percent stenosis: ICA PSV 125-230*, >=50 percent plaque, ICA/CCA PSV Ratio 2.0- 4.0, ICA EDV 40-100*. >=70 percent but less than near occlusion >230, >=50 percent plaque, ICA/CAA PSV Ratio >4.0, ICA EDV >100*. *cm/sec Plaque estimate (diameter reduction) with kraus-scale and color Doppler US. RSNA 2002 THIS IS AN ELECTRONICALLY VERIFIED FINAL REPORT 12/25/2020 9:30 AM - Electronically signed by Hilario Bolanos M.D. AG: SORAIDA Report ID: [id number] Reading Location: [id number] CT Chest PE (CTA) W Contrast Result Date: 11/27/2020 Narrative: EXAM DESCRIPTION: CT CHEST PE (CTA) W CONTRAST REASON FOR STUDY: Chest tightness started11/26 in the evening. Pt recently had a PE in October that pt states they went in and had to remove. Hxof left breast cancer with lumpectomy. 100ml of Optiray 350, 20g iv lt forearmDuration: 11/26 TECHNIQUE: CT angiogram of the chest performed with intravenous contrast using helical scanning technique w ith dynamic intravenous contrast injection. Reconstructed coronal and sagittal MPR images reviewed.All images stored on PACS. 3D MIP images rendered on scanning unit and reviewed at time of interpretation. Automated exposure control was used as a dose optimization technique for this examination. CONTRAST TYPE/DOSE: 100 of optiray 350 injected via lt forearm COMPARISON: None FINDINGS: VASCULATURE: No identified pulmonary emboli. LUNGS: No nodules or masses. No pneumonia. PLEURA: No effusion. Nopneumothorax. MEDIASTINUM/MICHA: Calcified right paratracheal and right hilar lymph nodes compatiblewith old healed granulomatous disease. HEART: Heart size is normal with no pericardial effusion. AXILLA: No adenopathy. CHEST WALL: Surgical clips in the left breast are seen. HARDWARE/LINES/TUBES: None. UPPER ABDOMEN: No significant abnormality. MUSCULOSKELETAL: No significant abnormality. OTHER: No significant abnormality. IMPRESSION: 1. No acute pulmonary embolus. 2. Clear lungs bilaterally. THIS IS AN ELECTRONICALLY VERIFIED FINAL REPORT 11/27/2020 12:46 AM - Electronically signed by Vivek Stout M.D. BB: DEDRA Report ID: [id number] Reading Location: [id number] Microbiology: COVID-19 RNA negative. H pylori negative. Urine culture positive for Pseudomonas aeruginosa and 2 species of Enterococcus faecalis. ASSESSMENT AND PLAN: Principal Problem: Normocytic anemia Active Problems: Hypokalemia Urinary tract bacterial infections Paroxysmal atrial fibrillation (CMS/HCC) (HCC) History of pulmonary embolism Type 2 diabetes mellitus (HCC) Chronic diastolic (congestive) heart failure (HCC) Anxiety CAD (coronary artery disease) HTN (hypertension) Occult blood in stools Hypophosphatemia Anxiety Constipation Pain and swelling of left wrist Resolved Problems: No resolved hospital problems. Normocytic anemia Appreciate help from GI and Hematology/Oncology during this stay. Noted iron deficiency. Completed 3 days of IV iron. No current bleeding. EGD was negative for bleeding. ASA remains on hold. Continuevitamin B12 and Protonix. Will continue to monitor. Encouraged activity. I did update her daughter by phone today. Patient not yet ready for discharge due to ongoing issues with constipation as notedbelow. Constipation Patient noted to have problems with constipation. Imaging on 12/25/2020 with significant stool seen. Did receive enema with minimal results. Linzess increased. GI reconsulted and appreciate input. Does have other p.r.n. medication. Await any further recommendations from GI. Would like patient to hav e good bowel movement prior to discharge. Urinary tract bacterial infections Urine culture as noted above. Infectious Disease has been following and appreciate input. Patient now on oral amoxicillin to complete treatment after completing 6 days of IV cefepime. Will continue to follow. Paroxysmal atrial fibrillation (CMS/HCC) (HCC) Presently stable with with heart rate controlled. Continue flecainide. Continue Eliquis for anticoagulation. Will monitor. Pain and swelling of left wrist No complaint today. Did have imaging done on 12/25/2020 with no fracture seen but arthritis present. Will monitor. Type 2 diabetes mellitus (HCC) Glucose reviewed on 12/26/2020 and presently well controlled. Will continue Invokana. Also has sliding scale insulin available. Will monitor. Chronic diastolic (congestive) heart failure (HCC) Currently stable with no exacerbation. Will continue spironolactone and furosemide. Will monitor. Essential hypertension Blood pressure reviewed on 12/26/2020 and stable. Will continue to monitor on verapamil, spironolactone and furosemide. CAD (coronary artery disease) No acute issue. Continue cardiac medications as noted already as well as rosuvastatin. History of pulmonary embolism Stable. Continue Eliquis. Anxiety Mood currently stable. Continue alprazolam as needed. Hypokalemia Resolved with potassium 4.9 today. Will continue replacement. Continue to monitor. Adjust replacement as needed. DVT PPx On Eliquis as noted above. MDM: Moderate. Nina Larsen MD Director of Family Medicine Inpatient Services [employer]r, [facility] 12/26/2020 8:33 AM * Neeta Patel MD - 12/25/2020 5:59 PM CDT GI Daily Progress Note Date of visit: 12/25/2020 Subjective: Last 24 hours records reviewed. Patient been having constipation with no bowel for few days and so GI re-evaluation was requested. Her stool has been hard and small. Sometimes the patient has use the finger. Patient does have issues with chronic constipation which is likely multifactorial secondary to her poor motility as well as her medications and possible functional element. She has no pain. She has been eating well. Her hemoglobin level stable. No sign of blood in the stool. No nausea. No vomiting. No abdominal pain. ROS: GENERAL: no fever, appetite is good. RESPIRATORY: no shortness of breath, no cough. SKIN: no itching, no rash. EYES: no redness, no itching, no visual changes. Objective: Vital signs in last 24 hours: Temp: [36.3 ??C (97.4 ??F)-36.9 ??C (98.4 ??F)] 36.6 ??C (97.9 ??F) Pulse: [66-88] 88 Resp: [16-18] 18 BP: (108-119)/(37-48) 117/37 Intake/Output last 3 shifts: I/O last 3 completed shifts: In: 1296 [P.O.:1200; I.V.:96] Out: 3200 [Urine:3200] Physical Exam: Patient is alert and oriented to time and place and self. Patient appears comfortable. Eyes: no jaundice. Lungs: CTA anteriorly. ENT: no mouth ulcers. GI: abdomen is soft, no distention, no tenderness, bowel sounds positive. Musculoskeletal: no joint swelling, no edema. Skin: no rash. Psych: mood seems normal. No confusion. Labs and Imaging: Labs and X rays reviewed. Recent Results (from the past 24 hour(s)) POCT glucose Collection Time: 12/24/20 8:56 PM Result Value Ref Range Glucose, POC 160 (H) 71 - 98 mg/dL POCT glucose Collection Time: 12/25/20 3:05 AM Result Value Ref Range Glucose, POC 121 (H) 71 - 98 mg/dL CBC without differential Collection Time: 12/25/20 5:46 AM Result Value Ref Range WBC 9.6 3.8 - 9.9 K/cumm Hgb 8.9 (L) 11.9 - 15.5 g/dL Hct 32.0 (L) 35.6 - 45.5 % Plt 264 150 - 400 K/cumm MPV 10.1 9.1 - 12.3 fL RBC 3.94 3.90 - 5.20 M/cumm MCV 81.2 (L) 81.3 - 96.4 fL MCH 22.6 (L) 27.1 - 33.3 pg MCHC 27.8 (L) 32.3 - 35.7 g/dL RDW CV 20.4 (H) 11.1 - 14.9 % RDW SD 57.1 (H) 35.7 - 48.1 fL NRBC abs 0.02 (H) 0.00 - 0.01 K/cumm POCT glucose Collection Time: 12/25/20 8:10 AM Result Value Ref Range Glucose, POC 117 (H) 71 - 98 mg/dL POCT glucose Collection Time: 12/25/20 12:12 PM Result Value Ref Range Glucose, POC 175 (H) 71 - 98 mg/dL POCT glucose Collection Time: 12/25/20 5:14 PM Result Value Ref Range Glucose, POC 144 (H) 71 - 98 mg/dL No results found. GI IMPRESSION: 1. Chronic constipation. Seems to get worse with time and the during this hospitalization 2. Anemia. Iron deficiency anemia with no sign of the acute GI bleeding in the upper GI system. Previous colonoscopy unremarkable. GI PLAN/RECOMMENDATIONS: 1. Increase Linzess to 290 micro g daily. 2. Dulcolax suppository every night 3. Give the patient on oral enema today. 4. Will add milk of magnesia every morning and follow her response Voice recognition software [employer] Fluency Direct was used dictate and transcribe this document. [employer] Installer variances may occur. Despite proofreading, typographical errors may occur. Neeta Patel MD * Wayne Snow MD - 12/25/2020 2:47 PM CDT General Medicine Daily Progress SUBJECTIVE Chief complaint of Weakness Interval History: Still no BM; hx of ED visit for constipation Spoke to Ange at length over phone Anxiety resolved No fever/chills Labs/vitals reviewed Ambulating with assistance of RN/PT but needs more PT OBJECTIVE Vitals: 24hr Min/Max: Temp Min: 36.3 ??C (97.4 ??F) Max: 36.9 ??C (98.4 ??F) Pulse Min: 66 Max: 81 BP Min: 108/45 Max: 123/46 Resp Min: 16 Max: 18 SpO2 Min: 93 % Max: 98 % Most Recent : Vitals: 12/25/20 1130 BP: 108/45 Pulse: 78 Resp: 17 Temp: 36.9 ??C (98.4 ??F) SpO2: 98% I/O last 2 completed shifts: In: 1296 [P.O.:1200; I.V.:96] Out: 2500 [Urine:2500] I/O this shift: In: 360 [P.O.:360] Out: - Physical Exam: Eyes: EOMI, MONTY, sclare non icteric Neck: supple, no nuchal ridigity, no gross carotid bruits appreciated Pharynx: No gross oral lesion, tongue midline, mucosa moist Lungs CTA Heart: [id number], no significant murmur or gallop Abd: +BS, Non Tender, Non distended, No gross hepatomegaly Lower Ext: No gross edema, pedal artery pulses are palpable bilaterally Neuro: No new deficits appreciated Musculoskeletal: Left wrist mild swelling but normal ROM Skin: No new change Lab/Current Medication Review: Recent Results (from the past 24 hour(s)) POCT glucose Collection Time: 12/24/20 4:36 PM Result Value Ref Range Glucose, POC 142 (H) 71 - 98 mg/dL POCT glucose Collection Time: 12/24/20 8:56 PM Result Value Ref Range Glucose, POC 160 (H) 71 - 98 mg/dL POCT glucose Collection Time: 12/25/20 3:05 AM Result Value Ref Range Glucose, POC 121 (H) 71 - 98 mg/dL CBC without differential Collection Time: 12/25/20 5:46 AM Result Value Ref Range WBC 9.6 3.8 - 9.9 K/cumm Hgb 8.9 (L) 11.9 - 15.5 g/dL Hct 32.0 (L) 35.6 - 45.5 % Plt 264 150 - 400 K/cumm MPV 10.1 9.1 - 12.3 fL RBC 3.94 3.90 - 5.20 M/cumm MCV 81.2 (L) 81.3 - 96.4 fL MCH 22.6 (L) 27.1 - 33.3 pg MCHC 27.8 (L) 32.3 - 35.7 g/dL RDW CV 20.4 (H) 11.1 - 14.9 % RDW SD 57.1 (H) 35.7 - 48.1 fL NRBC abs 0.02 (H) 0.00 - 0.01 K/cumm POCT glucose Collection Time: 12/25/20 8:10 AM Result Value Ref Range Glucose, POC 117 (H) 71 - 98 mg/dL POCT glucose Collection Time: 12/25/20 12:12 PM Result Value Ref Range Glucose, POC 175 (H) 71 - 98 mg/dL ECG 12 lead Result Date: 12/21/2020 Narrative: Vent Rate: 77 bpm RR Interval: 771 msec [place] Interval: 192 msec QRS Duration: 112 msec QT Interval: 415 msec QTC Interval: 447 msec P-R-T [place]: 46 - -28 - 55 degrees SINUS RHYTHM BORDERLINE LEFT AXIS DEVIATION [QRS AXIS < -20] MODERATE INTRAVENTRICULAR CONDUCTION DELAY [110+ ms QRS DURATION] BORDERLINE ECG No change from prior EKG Electronically Signed By: Landon Valencia MD ECG 12 lead Result Date: 12/21/2020 Narrative: Vent Rate: 81 bpm RR Interval: 736 msec [place] Interval: 162 msec QRS Duration: 119 msec QT Interval: 326 msec QTC Interval: 363 msec P-R-T [place]: -11 - -39 - 35 degrees Probable junctional rhythm LEFT AXIS DEVIATION [QRS AXIS < - 30] PATTERN CONSISTENT WITH PULMONARY DISEASE MODERATE INTRAVENTRICULAR CONDUCTION DELAY [110+ ms QRS DURATION] NONSPECIFIC ST \T\ T-WAVE ABNORMALITY Compared to prior EKG, nonspecific ST/T changes are new and junctional rhythm has replaced sinus rhythm. Electronically Signed By: Dr Darin Corona ECG 12 lead Result Date: 11/27/2020 Narrative: Vent Rate: 83 bpm RR Interval: 719 msec [place] Interval: 206 msec QRS Duration: 134 msec QT Interval: 405 msec QTC Interval: 445 msec P-R-T [place]: 72 - -54 - 59 degrees SINUS RHYTHM INTRAVENTRICULAR CONDUCTION DELAY [130+ ms QRS DURATION] ABNORMAL ECG No change from prior EKG Electronically Signed By: Landon Valencia MD CT Abdomen Pelvis W Contrast Result Date: 12/20/2020 Narrative: EXAM DESCRIPTION: CT ABDOMEN PELVIS W CONTRAST REASON FOR STUDY: asthma, PNA, CAD, CHF, A-fib, HTN, HLD, and DM who presents to the ED via EMS and accompanied by her daughter c/o generalized weakness for approximately 3 days PSH cade hernia ike 100 ml optiray 37910 g r FA Duration: 3 days TECHNIQUE: CT scan of the abdomen and pelvis performed with intravenous and without oral contrastusing helical scanning technique with dynamic intravenous contrast injection. Reconstructed coronaland sagittal MPR images reviewed. All images stored on PACS. Automated exposure control was used asa dose optimization technique for this examination. CONTRAST TYPE/DOSE: 100 mL of Optiray 320 inject ed via right forearm COMPARISON: 11/27/2020 FINDINGS: LOWER CHEST: Coronary artery, aortic valvularand mitral calcifications. Mild cardiomegaly. LIVER: Normal size. No identified cystic or solid masses. GALLBLADDER: Surgically absent. BILE DUCTS: No intrahepatic or extrahepatic ductal dilatation. SPLEEN: Punctate calcifications throughout the spleen consistent with prior granulomatous disease. PANCREAS: No identified cystic or solid masses. No significant calcifications. No adjacent inflammation or peripancreatic fluid collections. Pancreatic duct not dilated. ADRENALS: Normal. KIDNEYS/URINARY TRACT: No identified significant cystic or solid masses. No visualized stones. No hydronephrosis or hydroureter. Symmetric enhancement. The urinary bladder is decompressed with a Schmitt catheter in place. GI: Moderate amount of formed stool throughout the colon. No dilated bowel loops. No obvious wall thickening. No significant diverticular disease. The appendix is not discretely visualized although there are no secondary signs of inflammatory change within the right lower quadrant. PERITONEUM: No ascites or free air. RETROPERITONEUM: No mass or adenopathy. REPRODUCTIVE: Uterus is surgicallyabsent. VASCULATURE: Calcified atheroma of the abdominal aorta and its branch vessels. MUSCULOSKELETAL: Levoconvex scoliotic curvature of the lumbar spine with multilevel degenerative change. OTHER: Fat containing right femoral hernia. IMPRESSION: Moderate amount of stool throughout the colon likely due to underlying constipation. Otherwise, no acute findings to explain the patient's current symptoms. THIS IS AN ELECTRONICALLY VERIFIED FINAL REPORT 12/20/2020 7:38 PM - Electronically signed by Deborah Garcia M.D. TS: TS Report ID: [id number] Reading Location: [id number] CT Abdomen Pelvis W Contrast Result Date: 11/27/2020 Narrative: EXAM DESCRIPTION: CT ABDOMEN PELVIS W CONTRAST REASON FOR STUDY: Generalized abd pain, nausea, and vomiting started in the evening of 11/26. Hx of cholecystectomy, hysterectomy, left breastcancer with lumpectomy. Pt had blood clot removed in October. 100ml of Optiray 350, 20g iv lt forearmDuration: 11/26 evening TECHNIQUE: CT scan of the abdomen and pelvis performed with intravenous and without oral contrast using helical scanning technique with dynamic intravenous contrast injection. Reconstructed coronal and sagittal MPR images reviewed. All images stored on PACS. Automated exposure control was used as a dose optimization technique for this examination. CONTRAST TYPE/DOSE: 100 of op tiray 350 injected via lt forearm COMPARISON: None FINDINGS: LOWER CHEST: Lung bases clear. Heart size normal. Heavy annular calcification versus prosthesis. Effusion. LIVER/BILIARY: Liver unremarkable. Biliary tree normal in caliber. GALLBLADDER: Absent. SPLEEN: Normal. PANCREAS: Normal. ADRENAL GLANDS: Normal. KIDNEYS/URINARY TRACT: Kidneys and ureters appear normal. Bladder collapsed around Schmitt balloon. GI: Stomach and small bowel appear normal. Large amount of stool throughout the colon. No wall thickening or inflammation. Appendix not confidently distinguished from adjacent bowel. OTHER ABDOMINAL/PELVIS: Major vascular structures are grossly patent and normal in caliber. Moderate athe rosclerotic calcification. 50% stenosis of the right common iliac artery. No enlarged lymph node orfree fluid. MSK: Moderate disc disease and facet arthropathy. BODY WALL: Normal. IMPRESSION: Large amount of stool throughout the colon. No colitis or other acute abnormality identified. THIS IS AN EL ECTRONICALLY VERIFIED FINAL REPORT 11/27/2020 12:42 AM - Electronically signed by Femi Fermin M.D. AR: SPARKLE Report ID: [id number] Reading Location: [id number] XR Chest 1 Vw Portable Result Date: 12/20/2020 Narrative: EXAM DESCRIPTION: XR CHEST 1 VIEW REASON FOR STUDY: Generalized weakness over the past 3days. Leg swelling. Nonsmoker with a h/o sleep apnea, asthma, PNA, CAD, CHF, A-fib, HTN, HLD, and DM who presents to the ED via EMS and accompanied by her daughter c/o generalized weakness for approximately 3 days. Pt's daughter reports pt taking multiple water pills daily for swelling in pt's legsthat has improved. She states pt has a caregiver that comes to the home a couple times per day. Today, daughter of pt states a home nurse came evaluate pt's previous UTI who states pt was feeling dizzy upon standing up this morning. Pt states they are thinking it may be A-fib. I couldn't walk. I could sit down and be okay, but as soon as I stand up my face would be real hot.Duration: today TECHNIQUE: Frontal radiographic view of the chest acquired. COMPARISON: 03/06/2019 and 04/07/2018 FINDINGS: LUNGS/PLEURA: Pulmonary vascularity appears normal. No infiltrate or effusion. Costophrenic angles are sharp. HEART/MEDIASTINUM: Senescent change of the aorta. Otherwise, normal cardiomediastinal silhouette. HARDWARE/LINES/TUBES: None. BONES: No acute findings. OTHER: Gilby are seen of the leftlower chest similar to prior. IMPRESSION: 1. No acute findings or infiltrate. THIS IS AN ELECTRONICALLY VERIFIED FINAL REPORT 12/20/2020 4:42 PM - Electronically signed by Noah Cuba M.D. MJ: RENETTA Report ID: [id number] Reading Location:[id number] CT Chest PE (CTA) W Contrast Result Date: 11/27/2020 Narrative: EXAM DESCRIPTION: CT CHEST PE (CTA) W CONTRAST REASON FOR STUDY: Chest tightness started11/26 in the evening. Pt recently had a PE in October that pt states they went in and had to remove. Hxof left breast cancer with lumpectomy. 100ml of Optiray 350, 20g iv lt forearmDuration: 11/26 TECHNIQUE: CT angiogram of the chest performed with intravenous contrast using helical scanning technique w ith dynamic intravenous contrast injection. Reconstructed coronal and sagittal MPR images reviewed.All images stored on PACS. 3D MIP images rendered on scanning unit and reviewed at time of interpretation. Automated exposure control was used as a dose optimization technique for this examination. CONTRAST TYPE/DOSE: 100 of optiray 350 injected via lt forearm COMPARISON: None FINDINGS: VASCULATURE: No identified pulmonary emboli. LUNGS: No nodules or masses. No pneumonia. PLEURA: No effusion. Nopneumothorax. MEDIASTINUM/MICHA: Calcified right paratracheal and right hilar lymph nodes compatiblewith old healed granulomatous disease. HEART: Heart size is normal with no pericardial effusion. AXILLA: No adenopathy. CHEST WALL: Surgical clips in the left breast are seen. HARDWARE/LINES/TUBES: None. UPPER ABDOMEN: No significant abnormality. MUSCULOSKELETAL: No significant abnormality. OTHER: No significant abnormality. IMPRESSION: 1. No acute pulmonary embolus. 2. Clear lungs bilaterally. THIS IS AN ELECTRONICALLY VERIFIED FINAL REPORT 11/27/2020 12:46 AM - Electronically signed by Vivek Stout M.D. BB: DEDRA Report ID: [id number] Reading Location: [place] [id number] Current Facility-Administered Medications Medication Dose Route Frequency Provider Last Rate Last Admin ??? acetaminophen (TYLENOL) tablet 500 mg 500 mg oral Q4H PRN Neeta Patel MD 500 mg at 12/21/20 1028 ??? ALPRAZolam (XANAX) tablet 0.25 mg 0.25 mg oral BID PRN Wayne Snow MD 0.25 mg at 12/25/20 0635 ??? amitriptyline (ELAVIL) tablet 50 mg 50 mg oral Nightly Neeta Patel MD 50 mg at 12/24/20 2158 ??? amoxicillin (AMOXIL) tablet/capsule 500 mg 500 mg oral TID Willie Aly MD 500 mgat 12/25/20 1225 ??? anastrozole (ARIMIDEX) tablet 1 mg 1 mg oral Daily Neeta Patel MD 1 mg at 12/25/20931 ??? apixaban (ELIQUIS) tablet 5 mg 5 mg oral Q12H KATHARINE Neeta Patel MD 5 mg at 12/25/20931 ??? bisacodyL (DULCOLAX) suppository 10 mg 10 mg rectal Daily PRN Wayne Snow MD ??? bromfenac 0.07 % drops 1 drop 1 drop ophthalmic BID Neeta Patel MD 1 drop at 12/25/20938 ??? canagliflozin (INVOKANA) tablet 100 mg 100 mg oral Before breakfast Neeta Patel MD 100mg at 12/25/20 0634 ??? cholecalciferol (VITAMIN D-3) tablet 1,000 Units 1,000 Units oral Daily Neeta Patel MD1,000 Units at 12/25/20930 ??? cyanocobalamin (Vitamin B-12) tablet 250 mcg 250 mcg oral Daily Neeta Patel MD 250 mcgat 12/25/20930 ??? dextrose gel in packet 15 g 15 g oral Q15 Min PRN Neeta Patel MD Or ??? dextrose (D10W) 10% bolus 250 mL 250 mL intravenous Q15 Min PRN Neeta Patel MD ??? docusate sodium (COLACE) capsule 100 mg 100 mg oral BID PRN Neeta Patel MD ??? dorzolamide (TRUSOPT) 2 % ophthalmic solution 1 drop 1 drop each eye BID Neeta Patel MD 1 drop at 12/25/20938 ??? flecainide (TAMBOCOR) tablet 50 mg 50 mg oral BID Neeta Patel MD 50 mg at 12/25/20931 ??? furosemide (LASIX) tablet 40 mg 40 mg oral Daily Neeta Patel MD 40 mg at 12/25/20 0931 ??? glucagon injection 1 mg 1 mg intramuscular Q30 Min PRN Neeta Patel MD ??? insulin glargine (LANTUS, BASAGLAR, SEMGLEE) 100 unit/mL (3 mL) pen injection 8 Units 8 Units subcutaneous QAM Neeta Patel MD 8 Units at 12/25/20 0933 ??? insulin lispro (HumaLOG, ADMELOG) 100 unit/mL pen injection 1-3 Units 1-3 Units subcutaneous Nightly Neeta Patel MD ??? insulin lispro (HumaLOG, ADMELOG) 100 unit/mL pen injection 1-5 Units 1-5 Units subcutaneous TID with meals Neeta Patel MD 1 Units at 12/25/20 1225 ??? levothyroxine (SYNTHROID) tablet 75 mcg 75 mcg oral Daily - 0600 Neeta Patel MD 75 mcgat 12/25/20 0633 ??? linaCLOtide (LINZESS) capsule 72 mcg 72 mcg oral Before breakfast Neeta Patel MD 72 mcg at 12/25/20 0634 ??? multivit difhbulr-cire-EU-calcium (THERA-M) tablet 1 tablet 1 tablet oral Daily Neeta Patel MD 1 tablet at 12/25/20 0932 ??? ondansetron ODT (ZOFRAN-ODT) disintegrating tablet 4 mg 4 mg oral Q4H PRN Wayne Snow MD 4 mg at 12/25/20 1230 ??? pantoprazole DR (PROTONIX) extended release tablet 40 mg 40 mg oral Daily Neeta Patel MD 40 mg at 12/25/20 0931 ??? potassium chloride ER (KLOR-CON) extended release tablet 20 mEq 20 mEq oral QID Neeta Patel MD 20 mEq at 12/25/20 1225 ??? rosuvastatin (CRESTOR) tablet 10 mg 10 mg oral Nightly Neeta Patel MD 10 mg at 12/24/202157 ??? senna-docusate (PERICOLACE) 8.6-50 mg per tablet 1 tablet 1 tablet oral BID PRN Wayne Snow MD ??? sodium chloride 0.9% flush 0.5-20 mL 0.5-20 mL intra-catheter PRN Neeta Patel MD ??? sodium chloride 0.9% flush 0.5-20 mL 0.5-20 mL intra-catheter Q12H Wayne Snow MD ??? spironolactone (ALDACTONE) tablet 25 mg 25 mg oral Daily Neeta Patel MD 25 mg at 12/25/20931 ??? verapamil SR (CALAN SR) extended release tablet 120 mg 120 mg oral Nightly Neeat Patel MD 120 mg at 12/24/202156 A/P: 1. NC anemia-improving -LETA, and neg EGD for bleeding -Completed IV iron 3 days per heme (day #3/3) and outpt f/u labs -No signs RP bleeding -Hold ASA per GI (due to gastric polyps) but continue eliquis -No signs overload -F/u pathology as outpt per GI in summary, iron, on eliquis, PPI daily -Folate WNL -Continue home b12 2. Constipation -Likely obstipated and hx large stool 1 month ago and ED visit then -CT showed constipation + iron and gets nausea with miralax and nauseous here with Mg citrate -Spoke to GI again to see if enema/suppository and appropriate regimen to avoid further recurrent constipation hospitalizations; goal BM prior to DC and regimen 3. Left wrist swelling -Likely mild hematoma, unclear if trauma; good ROM; f/u x-ray; on blood thinner of note. 4. Paroxysmal a-fib -On eliquis 5. Anxiety -Appears to be panic attack -TSH f/u outpt with repeat level and carotid US WNL; prn xanax on DC and f/u with PCP 6. Hx of PE -No symptoms; on eliquis 7. UTI -Per ID; short course of amoxacillin on DC 8. Type 2 DM -Continue home insulin/sliding 9. CAD -No chest pain; off ASA per GI 10. Chronic diastolic CHF -Compensated on home lasix/aldactone 11. Hypokalemia-chronic -Continue home K 4x daily MDM Moderate Principal Problem: Normocytic anemia Active Problems: Hypokalemia Urinary tract bacterial infections Paroxysmal atrial fibrillation (CMS/HCC) (HCC) History of pulmonary embolism Type 2 diabetes mellitus (HCC) Chronic diastolic (congestive) heart failure (HCC) Anxiety CAD (coronary artery disease) HTN (hypertension) Occult blood in stools Hypophosphatemia Anxiety Resolved Problems: No resolved hospital problems. Voice recognition software [employer]el[employer] Direct was used dictate and transcribe this document. [employer] Installer variances may occur. Despite proofreading, typographical errors may occur. Wayne Snow MD 12/25/2020 2:47 PM * Trina Benitez RN - 12/25/2020 11:39 AM CDT Reassessment done with patient. Goal is still to return home with . He will be her ride home. She already had home health that has been ordered to resume on d/c. She has all the needed equipment. No other anticipated needs at this time. CM will continue to follow. 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 No * Ian Martínez RPh - 12/25/2020 10:03 AM CDT Vancomycin discontinued 12/25/20 10:[address]De Hauser. Vanco levels have been discontinued. Pharmacy monitoring is complete. Thank you, Ian Martínez RPh [facility] Pharmacy department [phone] * Melody Joseph PTA - 12/25/2020 9:25 AM CDT Physical Therapy 12/25/20 0829 PT Last Visit Session Type Treatment Pain Assessment Pain Assessment No/denies pain Bed Mobility 1 Bed Mobility From 1 Supine Bed Mobility Type 1 To Bed Mobility to 1 Edge of bed Level of Assistance 1 Minimum Assist Transfer 1 Transfer From 1 Bed;Sit Transfer Type 1 To and from Transfer to 1 Stand Technique 1 Sit to stand;Stand to sit Transfer Device 1 Wheeled walker Transfer Level of Assistance 1 Minimum Assist;Contact Guard Assist Ambulation 1 Distance (ft) 1 15' Device 1 Wheeled walker Assistance 1 Contact Guard Assist;Minimum Assist Gait: Requires assist with 1 Maintaining balance Gait: Requires verbal cues to 1 Increase step length;Improve upright posture Quality of Gait 1 pt with shuffled gait due to not being able to move legs well pt states this is her normal gait Assessment Prognosis Good Problem List Decreased strength;Decreased endurance;Decreased mobility Plan Plan If this is the last note, consider this the discharge summary Recommendation/Plan PT Recommendation/Plan Home with 24 hour supervision * Dianna Goldstein [facility] - 12/25/2020 8:15 AM CDT [place] 1250 mg IV every 24 hours is still active for indication of urinary tract/genitourinary infection. This is day 2 of therapy. Patient is also on cefepime. Based off of patient cultures and susceptibilities, recommend possible deescalating of therapy. Enterococcus faecalis is susceptible to ampicillin and nitrofurantoin. Pseudomonas aeruginosa susceptible to cefepime. Patient's labs for today are: BUN: no labs for today Serum creatinine: 0.62 mg/dL 12/24/20 0443 Estimated creatinine clearance: 48.8 mL/min WBC: 9.56 Labs, notes, medications and microbiology results have been reviewed. Next level is ordered for: 12/26/20 at 07:00 Pharmacy will continue to monitor daily. Thank you, Dianna Goldstein RPh [facility] Pharmacy department [phone] * Wayne Snow MD - 12/24/2020 1:18 PM CDT General Medicine Daily Progress SUBJECTIVE Chief complaint of Weakness Interval History: Pt felt somewhat restless Vague symptoms of sweats vs anxiety and tongue numb but improved No signs of bleeding Vitals/labs reviewed No chest pain/dyspnea OBJECTIVE Vitals: 24hr Min/Max: Temp Min: 35.6 ??C (96 ??F) Max: 36.2 ??C (97.2 ??F) Pulse Min: 65 Max: 79 BP Min: 112/44 Max: 123/52 Resp Min: 18 Max: 18 SpO2 Min: 90 % Max: 96 % Most Recent : Vitals: 12/24/20 1146 BP: 120/47 Pulse: 71 Resp: 18 Temp: 36.2 ??C (97.1 ??F) SpO2: 96% I/O last 2 completed shifts: In: 480 [P.O.:480] Out: 1475 [Urine:1475] I/O this shift: In: 240 [P.O.:240] Out: - Physical Exam: Eyes: EOMI, MONTY, sclare non icteric Neck: supple, no nuchal ridigity, no gross carotid bruits appreciated Pharynx: No gross oral lesion, tongue midline, mucosa moist Lungs CTA Heart: [id number], no significant murmur or gallop Abd: +BS, Non Tender, Non distended, No gross hepatomegaly Lower Ext: No gross edema, pedal artery pulses are palpable bilaterally Neuro: No new deficits appreciated Musculoskeletal: no gross joint erythema, edema, tenderness Skin: No new change Lab/Current Medication Review: Recent Results (from the past 24 hour(s)) POCT glucose Collection Time: 12/23/20 5:10 PM Result Value Ref Range Glucose, POC 123 (H) 71 - 98 mg/dL POCT glucose Collection Time: 12/23/20 9:08 PM Result Value Ref Range Glucose, POC 140 (H) 71 - 98 mg/dL POCT glucose Collection Time: 12/24/20 2:19 AM Result Value Ref Range Glucose, POC 143 (H) 71 - 98 mg/dL CBC without differential Collection Time: 12/24/20 4:43 AM Result Value Ref Range WBC 8.7 3.8 - 9.9 K/cumm Hgb 8.6 (L) 11.9 - 15.5 g/dL Hct 30.5 (L) 35.6 - 45.5 % Plt 273 150 - 400 K/cumm MPV 10.5 9.1 - 12.3 fL RBC 3.78 (L) 3.90 - 5.20 M/cumm MCV 80.7 (L) 81.3 - 96.4 fL MCH 22.8 (L) 27.1 - 33.3 pg MCHC 28.2 (L) 32.3 - 35.7 g/dL RDW CV 19.6 (H) 11.1 - 14.9 % RDW SD 55.0 (H) 35.7 - 48.1 fL NRBC abs 0.02 (H) 0.00 - 0.01 K/cumm Phosphorus Collection Time: 12/24/20 4:43 AM Result Value Ref Range Phosphorus, pl 2.4 2.3 - 4.5 mg/dL Basic metabolic panel Collection Time: 12/24/20 4:43 AM Result Value Ref Range Sodium 138 135 - 145 mmol/L Potassium, pl 4.4 3.3 - 4.9 mmol/L Chloride 111 (H) 97 - 110 mmol/L CO2 21 (L) 22 - 32 mmol/L Anion gap 7 2 - 15 mmol/L BUN 13 8 - 25 mg/dL Creatinine 0.62 0.60 - 1.10 mg/dL Glucose 121 70 - 199 mg/dL Calcium 8.9 8.5 - 10.3 mg/dL eGFR Collection Time: 12/24/20 4:43 AM Result Value Ref Range eGFR 84 mL/min/1.73 m2 TSH reflex to free T4 Collection Time: 12/24/20 4:43 AM Result Value Ref Range TSH 5.72 (H) 0.30 - 4.20 mcIUnit/mL T4, free Collection Time: 12/24/20 4:43 AM Result Value Ref Range Free T4 1.30 0.90 - 1.70 ng/dL POCT glucose Collection Time: 12/24/20 7:34 AM Result Value Ref Range Glucose, POC 137 (H) 71 - 98 mg/dL POCT glucose Collection Time: 12/24/20 8:00 AM Result Value Ref Range Glucose, POC 124 (H) 71 - 98 mg/dL POCT glucose Collection Time: 12/24/20 12:22 PM Result Value Ref Range Glucose, POC 160 (H) 71 - 98 mg/dL ECG 12 lead Result Date: 12/21/2020 Narrative: Vent Rate: 77 bpm RR Interval: 771 msec [place] Interval: 192 msec QRS Duration: 112 msec QT Interval: 415 msec QTC Interval: 447 msec P-R-T [place]: 46 - -28 - 55 degrees SINUS RHYTHM BORDERLINE LEFT AXIS DEVIATION [QRS AXIS < -20] MODERATE INTRAVENTRICULAR CONDUCTION DELAY [110+ ms QRS DURATION] BORDERLINE ECG No change from prior EKG Electronically Signed By: Landon Valencia MD ECG 12 lead Result Date: 12/21/2020 Narrative: Vent Rate: 81 bpm RR Interval: 736 msec [place] Interval: 162 msec QRS Duration: 119 msec QT Interval: 326 msec QTC Interval: 363 msec P-R-T [place]: -11 - -39 - 35 degrees Probable junctional rhythm LEFT AXIS DEVIATION [QRS AXIS < - 30] PATTERN CONSISTENT WITH PULMONARY DISEASE MODERATE INTRAVENTRICULAR CONDUCTION DELAY [110+ ms QRS DURATION] NONSPECIFIC ST \T\ T-WAVE ABNORMALITY Compared to prior EKG, nonspecific ST/T changes are new and junctional rhythm has replaced sinus rhythm. Electronically Signed By: Dr Darin Corona ECG 12 lead Result Date: 11/27/2020 Narrative: Vent Rate: 83 bpm RR Interval: 719 msec [place] Interval: 206 msec QRS Duration: 134 msec QT Interval: 405 msec QTC Interval: 445 msec P-R-T [place]: 72 - -54 - 59 degrees SINUS RHYTHM INTRAVENTRICULAR CONDUCTION DELAY [130+ ms QRS DURATION] ABNORMAL ECG No change from prior EKG Electronically Signed By: Landon Valencia MD CT Abdomen Pelvis W Contrast Result Date: 12/20/2020 Narrative: EXAM DESCRIPTION: CT ABDOMEN PELVIS W CONTRAST REASON FOR STUDY: asthma, PNA, CAD, CHF, A-fib, HTN, HLD, and DM who presents to the ED via EMS and accompanied by her daughter c/o generalized weakness for approximately 3 days PSH cade hernia ike 100 ml optiray 24664 g r FA Duration: 3 days TECHNIQUE: CT scan of the abdomen and pelvis performed with intravenous and without oral contrastusing helical scanning technique with dynamic intravenous contrast injection. Reconstructed coronaland sagittal MPR images reviewed. All images stored on PACS. Automated exposure control was used asa dose optimization technique for this examination. CONTRAST TYPE/DOSE: 100 mL of Optiray 320 inject ed via right forearm COMPARISON: 11/27/2020 FINDINGS: LOWER CHEST: Coronary artery, aortic valvularand mitral calcifications. Mild cardiomegaly. LIVER: Normal size. No identified cystic or solid masses. GALLBLADDER: Surgically absent. BILE DUCTS: No intrahepatic or extrahepatic ductal dilatation. SPLEEN: Punctate calcifications throughout the spleen consistent with prior granulomatous disease. PANCREAS: No identified cystic or solid masses. No significant calcifications. No adjacent inflammation or peripancreatic fluid collections. Pancreatic duct not dilated. ADRENALS: Normal. KIDNEYS/URINARY TRACT: No identified significant cystic or solid masses. No visualized stones. No hydronephrosis or hydroureter. Symmetric enhancement. The urinary bladder is decompressed with a Schmitt catheter in place. GI: Moderate amount of formed stool throughout the colon. No dilated bowel loops. No obvious wall thickening. No significant diverticular disease. The appendix is not discretely visualized although there are no secondary signs of inflammatory change within the right lower quadrant. PERITONEUM: No ascites or free air. RETROPERITONEUM: No mass or adenopathy. REPRODUCTIVE: Uterus is surgicallyabsent. VASCULATURE: Calcified atheroma of the abdominal aorta and its branch vessels. MUSCULOSKELETAL: Levoconvex scoliotic curvature of the lumbar spine with multilevel degenerative change. OTHER: Fat containing right femoral hernia. IMPRESSION: Moderate amount of stool throughout the colon likely due to underlying constipation. Otherwise, no acute findings to explain the patient's current symptoms. THIS IS AN ELECTRONICALLY VERIFIED FINAL REPORT 12/20/2020 7:38 PM - Electronically signed by Deborah Garcia M.D. TS: SHANNON Report ID: [id number] Reading Location: [id number] CT Abdomen Pelvis W Contrast Result Date: 11/27/2020 Narrative: EXAM DESCRIPTION: CT ABDOMEN PELVIS W CONTRAST REASON FOR STUDY: Generalized abd pain, nausea, and vomiting started in the evening of 11/26. Hx of cholecystectomy, hysterectomy, left breastcancer with lumpectomy. Pt had blood clot removed in October. 100ml of Optiray 350, 20g iv lt forearmDuration: 11/26 evening TECHNIQUE: CT scan of the abdomen and pelvis performed with intravenous and without oral contrast using helical scanning technique with dynamic intravenous contrast injection. Reconstructed coronal and sagittal MPR images reviewed. All images stored on PACS. Automated exposure control was used as a dose optimization technique for this examination. CONTRAST TYPE/DOSE: 100 of op tiray 350 injected via lt forearm COMPARISON: None FINDINGS: LOWER CHEST: Lung bases clear. Heart size normal. Heavy annular calcification versus prosthesis. Effusion. LIVER/BILIARY: Liver unremarkable. Biliary tree normal in caliber. GALLBLADDER: Absent. SPLEEN: Normal. PANCREAS: Normal. ADRENAL GLANDS: Normal. KIDNEYS/URINARY TRACT: Kidneys and ureters appear normal. Bladder collapsed around Schmitt balloon. GI: Stomach and small bowel appear normal. Large amount of stool throughout the colon. No wall thickening or inflammation. Appendix not confidently distinguished from adjacent bowel. OTHER ABDOMINAL/PELVIS: Major vascular structures are grossly patent and normal in caliber. Moderate athe rosclerotic calcification. 50% stenosis of the right common iliac artery. No enlarged lymph node orfree fluid. MSK: Moderate disc disease and facet arthropathy. BODY WALL: Normal. IMPRESSION: Large amount of stool throughout the colon. No colitis or other acute abnormality identified. THIS IS AN EL ECTRONICALLY VERIFIED FINAL REPORT 11/27/2020 12:42 AM - Electronically signed by Femi Fermin M.D. AR: SPARKLE Report ID: [id number] Reading Location: [id number] XR Chest 1 Vw Portable Result Date: 12/20/2020 Narrative: EXAM DESCRIPTION: XR CHEST 1 VIEW REASON FOR STUDY: Generalized weakness over the past 3days. Leg swelling. Nonsmoker with a h/o sleep apnea, asthma, PNA, CAD, CHF, A-fib, HTN, HLD, and DM who presents to the ED via EMS and accompanied by her daughter c/o generalized weakness for approximately 3 days. Pt's daughter reports pt taking multiple water pills daily for swelling in pt's legsthat has improved. She states pt has a caregiver that comes to the home a couple times per day. Today, daughter of pt states a home nurse came evaluate pt's previous UTI who states pt was feeling dizzy upon standing up this morning. Pt states they are thinking it may be A-fib. I couldn't walk. I could sit down and be okay, but as soon as I stand up my face would be real hot.Duration: today TECHNIQUE: Frontal radiographic view of the chest acquired. COMPARISON: 03/06/2019 and 04/07/2018 FINDINGS: LUNGS/PLEURA: Pulmonary vascularity appears normal. No infiltrate or effusion. Costophrenic angles are sharp. HEART/MEDIASTINUM: Senescent change of the aorta. Otherwise, normal cardiomediastinal silhouette. HARDWARE/LINES/TUBES: None. BONES: No acute findings. OTHER: Joanie are seen of the leftlower chest similar to prior. IMPRESSION: 1. No acute findings or infiltrate. THIS IS AN ELECTRONICALLY VERIFIED FINAL REPORT 12/20/2020 4:42 PM - Electronically signed by Noah Cuba M.D. MJ: RENETTA Report ID: [id number] Reading Location:[place] [address] CT Chest PE (CTA) W Contrast Result Date: 11/27/2020 Narrative: EXAM DESCRIPTION: CT CHEST PE (CTA) W CONTRAST REASON FOR STUDY: Chest tightness started11/26 in the evening. Pt recently had a PE in October that pt states they went in and had to remove. Hxof left breast cancer with lumpectomy. 100ml of Optiray 350, 20g iv lt forearmDuration: 11/26 TECHNIQUE: CT angiogram of the chest performed with intravenous contrast using helical scanning technique w ith dynamic intravenous contrast injection. Reconstructed coronal and sagittal MPR images reviewed.All images stored on PACS. 3D MIP images rendered on scanning unit and reviewed at time of interpretation. Automated exposure control was used as a dose optimization technique for this examination. CONTRAST TYPE/DOSE: 100 of optiray 350 injected via lt forearm COMPARISON: None FINDINGS: VASCULATURE: No identified pulmonary emboli. LUNGS: No nodules or masses. No pneumonia. PLEURA: No effusion. Nopneumothorax. MEDIASTINUM/MICHA: Calcified right paratracheal and right hilar lymph nodes compatible with old healed granulomatous disease. HEART: Heart size is normal with no pericardial effusion. AXILLA: No adenopathy. CHEST WALL: Surgical clips in the left breast are seen. HARDWARE/LINES/TUBES: None. UPPER ABDOMEN: No significant abnormality. MUSCULOSKELETAL: No significant abnormality. OTHER:No significant abnormality. IMPRESSION: 1. No acute pulmonary embolus. 2. Clear lungs bilaterally. THIS IS AN ELECTRONICALLY VERIFIED FINAL REPORT 11/27/2020 12:46 AM - Electronically signed by Vivek Stout M.D. BB: DEDRA Report ID: [id number] Reading Location: [place] [address] Current Facility-Administered Medications Medication Dose Route Frequency Provider Last Rate Last Admin ??? acetaminophen (TYLENOL) tablet 500 mg 500 mg oral Q4H PRN Neeta Patel MD 500 mg at 12/21/20 1028 ??? ALPRAZolam (XANAX) tablet 0.25 mg 0.25 mg oral BID PRN Wayne Snow MD 0.25 mg at 12/24/20 0821 ??? amitriptyline (ELAVIL) tablet 50 mg 50 mg oral Nightly Neeta Patel MD 50 mg at 12/23/202056 ??? anastrozole (ARIMIDEX) tablet 1 mg 1 mg oral Daily Neeta Patel MD 1 mg at 12/24/20 0930 ??? apixaban (ELIQUIS) tablet 5 mg 5 mg oral Q12H [facility] Neeta Patel MD 5 mg at 12/24/20 0930 ??? [Held by Provider] aspirin chewable tablet 81 mg 81 mg oral Daily Wayne Snow MD 81 mg at 12/21/20 1411 ??? bisacodyL (DULCOLAX) suppository 10 mg 10 mg rectal Daily PRN Wayne Snow MD ??? bromfenac 0.07 % drops 1 drop 1 drop ophthalmic BID Neeta Patel MD 1 drop at 12/24/20 0940 ??? canagliflozin (INVOKANA) tablet 100 mg 100 mg oral Before breakfast Neeta Patel MD 100mg at 12/24/20 0940 ??? cefepime (MAXIPIME) 1,000 mg in sodium chloride 0.9% 100 mL IVPB 1,000 mg intravenous Q12H [facility] Neeta Patel MD 200 mL/hr at 12/24/20930 1,000 mg at 12/24/20930 ??? cholecalciferol (VITAMIN D-3) tablet 1,000 Units 1,000 Units oral Daily Neeta Patel MD1,000 Units at 12/24/20929 ??? cyanocobalamin (Vitamin B-12) tablet 250 mcg 250 mcg oral Daily Neeta Patel MD 250 mcgat 12/24/20929 ??? dextrose gel in packet 15 g 15 g oral Q15 Min PRN Neeta Patel MD Or ??? dextrose (D10W) 10% bolus 250 mL 250 mL intravenous Q15 Min PRN Neeta Ptael MD ??? docusate sodium (COLACE) capsule 100 mg 100 mg oral BID PRN Neeta Patel MD ??? dorzolamide (TRUSOPT) 2 % ophthalmic solution 1 drop 1 drop each eye BID Neeta Patel MD 1 drop at 12/24/20930 ??? flecainide (TAMBOCOR) tablet 50 mg 50 mg oral BID Neeta Patel MD 50 mg at 12/24/20929 ??? furosemide (LASIX) tablet 40 mg 40 mg oral Daily Neeta Patel MD 40 mg at 12/24/20929 ??? glucagon injection 1 mg 1 mg intramuscular Q30 Min PRN Neeta Patel MD ??? insulin glargine (LANTUS, BASAGLAR, SEMGLEE) 100 unit/mL (3 mL) pen injection 8 Units 8 Units subcutaneous QAM Neeta Patel MD 8 Units at 12/24/20930 ??? insulin lispro (HumaLOG, ADMELOG) 100 unit/mL pen injection 1-3 Units 1-3 Units subcutaneous Nightly Neeta Patel MD ??? insulin lispro (HumaLOG, ADMELOG) 100 unit/mL pen injection 1-5 Units 1-5 Units subcutaneous TID with meals Neeta Patel MD 1 Units at 12/24/20 1235 ??? levothyroxine (SYNTHROID) tablet 75 mcg 75 mcg oral Daily - 0600 Neeta Patel MD 75 mcgat 12/24/20 0528 ??? linaCLOtide (LINZESS) capsule 72 mcg 72 mcg oral Before breakfast Neeta Patel MD 72 mcg at 12/24/20929 ??? magnesium citrate oral solution 296 mL 296 mL oral Once Wayne Snow MD ??? multivit toosdkrl-edns-OY-calcium (THERA-M) tablet 1 tablet 1 tablet oral Daily Neeta Patel MD 1 tablet at 12/24/20929 ??? oxyCODONE (ROXICODONE) tablet 5 mg 5 mg oral Q4H PRN Neeta Patel MD ??? pantoprazole DR (PROTONIX) extended release tablet 40 mg 40 mg oral Daily Neeta Patel MD 40 mg at 12/24/20929 ??? potassium chloride ER (KLOR-CON) extended release tablet 20 mEq 20 mEq oral QID Neeta Patel MD 20 mEq at 12/24/20 1235 ??? rosuvastatin (CRESTOR) tablet 10 mg 10 mg oral Nightly Neeta Patel MD 10 mg at 12/23/202056 ??? senna-docusate (PERICOLACE) 8.6-50 mg per tablet 1 tablet 1 tablet oral BID PRN Neeta Patel MD 1 tablet at 12/24/20930 ??? sodium chloride 0.9% flush 0.5-20 mL 0.5-20 mL intra-catheter Q8H [facility] Neeta Patel MD 10 mL at 12/24/20930 ??? sodium chloride 0.9% flush 0.5-20 mL 0.5-20 mL intra-catheter PRN Neeta Patel MD ??? spironolactone (ALDACTONE) tablet 25 mg 25 mg oral Daily Neeta Patel MD 25 mg at 12/24/20 0930 ??? vancomycin 1250 mg/250 mL in sodium chloride 0.9% (premix) 1,250 mg 15 mg/kg intravenous Q24H Wayne Angel MD 1,250 mg at 12/24/20 0930 ??? verapamil SR (CALAN SR) extended release tablet 120 mg 120 mg oral Nightly Neeta Patel MD 120 mg at 12/23/202055 A/P: 1. NC anemia-improving -LETA, and neg EGD for bleeding -Completed IV iron 3 days per heme (day #3/3) and outpt f/u labs -No signs RP bleeding -Hold ASA per GI (due to gastric polyps) but continue eliquis -No signs overload -F/u pathology as outpt per GI in summary, iron, on eliquis, PPI daily -Folate WNL -Continue home b12 2. Paroxysmal a-fib -On eliquis 3. Anxiety -Appears to be panic attack -However vague symptom of tongue/lips number was unclear so since pt already on eliquis, scan carotid to rule out any stenosis causing vague symptoms/TIA mimic; clinically appears less likely tho -Trial xanax -Check thyroid as well 4. Hx of PE -No symptoms; on eliquis 5. UTI -Added vanc since enterococcus on cultures, day #4 cefepime/5 days; no symptoms -Will obtain ID consult for duration of therapy -Unclear if this also caused vague symptoms listed above but no fevers/WBC WNL 6. Type 2 DM -Continue home insulin/sliding 7. CAD -No chest pain; off ASA per GI 8. Chronic diastolic CHF -Compensated on home lasix/aldactone 9. Constipation -PRN laxatives; added Mg citrate 10. Hypokalemia-chronic -Continue home K 4x daily MDM Moderate Principal Problem: Normocytic anemia Active Problems: Hypokalemia Urinary tract bacterial infections Paroxysmal atrial fibrillation (CMS/HCC) (HCC) History of pulmonary embolism Type 2 diabetes mellitus (HCC) Chronic diastolic (congestive) heart failure (HCC) Anxiety CAD (coronary artery disease) HTN (hypertension) Occult blood in stools Hypophosphatemia Resolved Problems: No resolved hospital problems. Voice recognition software [employer] Direct was used dictate and transcribe this document. [employer] Installer variances may occur. Despite proofreading, typographical errors may occur. Wayne Snow MD 12/24/2020 1:18 PM * Ian Martínez [facility] - 12/24/2020 8:11 AM CDT Loc [facility] has been consulted for vancomycin dosing for Urinary tract/Genitourinary infection . [place] 1250 mg IV every 24 hours per protocol for weight of 77kg and Serum creatinine: 0.62 mg/dL 12/24/20 0443 Estimated creatinine clearance: 48.8 mL/min . Goal trough 10-20. Vanco trough ordered for 12/26/20 07:00 . Pharmacy will monitor renal function daily and adjust dosing if necessary. Recent Labs Lab Units 12/24/20 0443 WBC K/cumm 8.7 HEMOGLOBIN g/dL 8.6* HEMATOCRIT % 30.5* PLATELETS K/cumm 273 Thank you, Ian Martínez [facility] Pharmacy department [phone] * Wayne Snow MD - 12/23/2020 2:26 PM CDT General Medicine Daily Progress SUBJECTIVE Chief complaint of Weakness Interval History: No signs of bleeding with neg EGD Resting Spoke to Ange, daughter over the phone Ambulating No chest pain/dyspnea OBJECTIVE Vitals: 24hr Min/Max: Temp Min: 35.9 ??C (96.7 ??F) Max: 36.4 ??C (97.5 ??F) Pulse Min: 58 Max: 85 BP Min: 104/42 Max: 118/44 Resp Min: 16 Max: 24 SpO2 Min: 93 % Max: 98 % Most Recent : Vitals: 12/23/20 1048 BP: (!) 115/43 Pulse: 74 Resp: 16 Temp: (!) 35.9 ??C (96.7 ??F) SpO2: 96% I/O last 2 completed shifts: In: 1300 [P.O.:840; I.V.:10; IV Piggyback:450] Out: 3375 [Urine:3375] I/O this shift: In: - Out: 775 [Urine:775] Physical Exam: Eyes: EOMI, MONTY, sclare non icteric Neck: supple, no nuchal ridigity, no gross carotid bruits appreciated Pharynx: No gross oral lesion, tongue midline, mucosa moist Lungs CTA Heart: [id number], no significant murmur or gallop Abd: +BS, Non Tender, Non distended, No gross hepatomegaly Lower Ext: No gross edema, pedal artery pulses are palpable bilaterally Neuro: No new deficits appreciated Musculoskeletal: no gross joint erythema, edema, tenderness Skin: No new change Lab/Current Medication Review: Recent Results (from the past 24 hour(s)) POCT glucose Collection Time: 12/22/20 5:16 PM Result Value Ref Range Glucose, POC 116 (H) 71 - 98 mg/dL POCT glucose Collection Time: 12/22/20 8:50 PM Result Value Ref Range Glucose, POC 165 (H) 71 - 98 mg/dL POCT glucose Collection Time: 12/23/20 2:00 AM Result Value Ref Range Glucose, POC 128 (H) 71 - 98 mg/dL CBC with auto differential Collection Time: 12/23/20 5:09 AM Result Value Ref Range WBC 7.9 3.8 - 9.9 K/cumm Hgb 9.1 (L) 11.9 - 15.5 g/dL Hct 31.8 (L) 35.6 - 45.5 % Plt 254 150 - 400 K/cumm MPV 10.7 9.1 - 12.3 fL RBC 3.95 3.90 - 5.20 M/cumm MCV 80.5 (L) 81.3 - 96.4 fL MCH 23.0 (L) 27.1 - 33.3 pg MCHC 28.6 (L) 32.3 - 35.7 g/dL RDW CV 18.7 (H) 11.1 - 14.9 % RDW SD 53.1 (H) 35.7 - 48.1 fL NRBC abs 0.04 (H) 0.00 - 0.01 K/cumm Renal function panel Collection Time: 12/23/20 5:09 AM Result Value Ref Range Sodium 139 135 - 145 mmol/L Potassium, pl 4.1 3.3 - 4.9 mmol/L Chloride 107 97 - 110 mmol/L CO2 21 (L) 22 - 32 mmol/L Anion gap 10 2 - 15 mmol/L BUN 15 8 - 25 mg/dL Creatinine 0.58 (L) 0.60 - 1.10 mg/dL Glucose 104 70 - 199 mg/dL Calcium 9.1 8.5 - 10.3 mg/dL Phosphorus, pl 2.1 (L) 2.3 - 4.5 mg/dL Albumin 3.6 3.5 - 5.0 g/dL Differential, auto Collection Time: 12/23/20 5:09 AM Result Value Ref Range Neutrophil abs 4.7 1.7 - 6.5 K/cumm Imm gran abs 0.1 0.0 - 0.1 K/cumm Lymphocyte abs 1.3 0.8 - 3.3 K/cumm Monocyte abs 1.4 (H) 0.2 - 0.8 K/cumm Eosinophil abs 0.3 0.0 - 0.5 K/cumm Basophil abs 0.1 0.0 - 0.1 K/cumm Neutrophil pct 59.5 % Imm gran pct 1.1 % Lymphocyte pct 16.7 % Monocyte pct 17.5 % Eosinophil pct 4.3 % Basophil pct 0.9 % eGFR Collection Time: 12/23/20 5:09 AM Result Value Ref Range eGFR 86 mL/min/1.73 m2 POCT glucose Collection Time: 12/23/20 8:33 AM Result Value Ref Range Glucose, POC 114 (H) 71 - 98 mg/dL POCT glucose Collection Time: 12/23/20 11:45 AM Result Value Ref Range Glucose, POC 183 (H) 71 - 98 mg/dL ECG 12 lead Result Date: 12/21/2020 Narrative: Vent Rate: 77 bpm RR Interval: 771 msec [place] Interval: 192 msec QRS Duration: 112 msec QT Interval: 415 msec QTC Interval: 447 msec P-R-T [place]: 46 - -28 - 55 degrees SINUS RHYTHM BORDERLINE LEFT AXIS DEVIATION [QRS AXIS < -20] MODERATE INTRAVENTRICULAR CONDUCTION DELAY [110+ ms QRS DURATION] BORDERLINE ECG No change from prior EKG Electronically Signed By: Landon Valencia MD ECG 12 lead Result Date: 12/21/2020 Narrative: Vent Rate: 81 bpm RR Interval: 736 msec [place] Interval: 162 msec QRS Duration: 119 msec QT Interval: 326 msec QTC Interval: 363 msec P-R-T [place]: -11 - -39 - 35 degrees Probable junctional rhythm LEFT AXIS DEVIATION [QRS AXIS < - 30] PATTERN CONSISTENT WITH PULMONARY DISEASE MODERATE INTRAVENTRICULAR CONDUCTION DELAY [110+ ms QRS DURATION] NONSPECIFIC ST \T\ T-WAVE ABNORMALITY Compared to prior EKG, nonspecific ST/T changes are new and junctional rhythm has replaced sinus rhythm. Electronically Signed By: Dr Darin Corona ECG 12 lead Result Date: 11/27/2020 Narrative: Vent Rate: 83 bpm RR Interval: 719 msec [place] Interval: 206 msec QRS Duration: 134 msec QT Interval: 405 msec QTC Interval: 445 msec P-R-T [place]: 72 - -54 - 59 degrees SINUS RHYTHM INTRAVENTRICULAR CONDUCTION DELAY [130+ ms QRS DURATION] ABNORMAL ECG No change from prior EKG Electronically Signed By: Landon Valencia MD CT Abdomen Pelvis W Contrast Result Date: 12/20/2020 Narrative: EXAM DESCRIPTION: CT ABDOMEN PELVIS W CONTRAST REASON FOR STUDY: asthma, PNA, CAD, CHF, A-fib, HTN, HLD, and DM who presents to the ED via EMS and accompanied by her daughter c/o generalized weakness for approximately 3 days PSH cade hernia ike 100 ml optiray [id number] g r FA Duration: 3 days TECHNIQUE: CT scan of the abdomen and pelvis performed with intravenous and without oral contrastusing helical scanning technique with dynamic intravenous contrast injection. Reconstructed coronaland sagittal MPR images reviewed. All images stored on PACS. Automated exposure control was used asa dose optimization technique for this examination. CONTRAST TYPE/DOSE: 100 mL of Optiray 320 inject ed via right forearm COMPARISON: 11/27/2020 FINDINGS: LOWER CHEST: Coronary artery, aortic valvularand mitral calcifications. Mild cardiomegaly. LIVER: Normal size. No identified cystic or solid masses. GALLBLADDER: Surgically absent. BILE DUCTS: No intrahepatic or extrahepatic ductal dilatation. SPLEEN: Punctate calcifications throughout the spleen consistent with prior granulomatous disease. PANCREAS: No identified cystic or solid masses. No significant calcifications. No adjacent inflammation or peripancreatic fluid collections. Pancreatic duct not dilated. ADRENALS: Normal. KIDNEYS/URINARY TRACT: No identified significant cystic or solid masses. No visualized stones. No hydronephrosis or hydroureter. Symmetric enhancement. The urinary bladder is decompressed with a Schmitt catheter in place. GI: Moderate amount of formed stool throughout the colon. No dilated bowel loops. No obvious wall thickening. No significant diverticular disease. The appendix is not discretely visualized although there are no secondary signs of inflammatory change within the right lower quadrant. PERITONEUM: No ascites or free air. RETROPERITONEUM: No mass or adenopathy. REPRODUCTIVE: Uterus is surgicallyabsent. VASCULATURE: Calcified atheroma of the abdominal aorta and its branch vessels. MUSCULOSKELETAL: Levoconvex scoliotic curvature of the lumbar spine with multilevel degenerative change. OTHER: Fat containing right femoral hernia. IMPRESSION: Moderate amount of stool throughout the colon likely due to underlying constipation. Otherwise, no acute findings to explain the patient's current symptoms. THIS IS AN ELECTRONICALLY VERIFIED FINAL REPORT 12/20/2020 7:38 PM - Electronically signed by Deobrah Garcia M.D. TS: SHANNON Report ID: [id number] Reading Location: [id number] CT Abdomen Pelvis W Contrast Result Date: 11/27/2020 Narrative: EXAM DESCRIPTION: CT ABDOMEN PELVIS W CONTRAST REASON FOR STUDY: Generalized abd pain, nausea, and vomiting started in the evening of 11/26. Hx of cholecystectomy, hysterectomy, left breastcancer with lumpectomy. Pt had blood clot removed in October. 100ml of Optiray 350, 20g iv lt forearmDuration: 11/26 evening TECHNIQUE: CT scan of the abdomen and pelvis performed with intravenous and without oral contrast using helical scanning technique with dynamic intravenous contrast injection. Reconstructed coronal and sagittal MPR images reviewed. All images stored on PACS. Automated exposure control was used as a dose optimization technique for this examination. CONTRAST TYPE/DOSE: 100 of op tiray 350 injected via lt forearm COMPARISON: None FINDINGS: LOWER CHEST: Lung bases clear. Heart size normal. Heavy annular calcification versus prosthesis. Effusion. LIVER/BILIARY: Liver unremarkable. Biliary tree normal in caliber. GALLBLADDER: Absent. SPLEEN: Normal. PANCREAS: Normal. ADRENAL GLANDS: Normal. KIDNEYS/URINARY TRACT: Kidneys and ureters appear normal. Bladder collapsed around Schmitt balloon. GI: Stomach and small bowel appear normal. Large amount of stool throughout the colon.No wall thickening or inflammation. Appendix not confidently distinguished from adjacent bowel. OTHER ABDOMINAL/PELVIS: Major vascular structures are grossly patent and normal in caliber. Moderate ath erosclerotic calcification. 50% stenosis of the right common iliac artery. No enlarged lymph node or free fluid. MSK: Moderate disc disease and facet arthropathy. BODY WALL: Normal. IMPRESSION: Largeamount of stool throughout the colon. No colitis or other acute abnormality identified. THIS IS AN E LECTRONICALLY VERIFIED FINAL REPORT 11/27/2020 12:42 AM - Electronically signed by Femi Fermin M.D. AR: SPARKLE Report ID: [id number] ReadingLocation: [id number] XR Chest 1 Vw Portable Result Date: 12/20/2020 Narrative: EXAM DESCRIPTION: XR CHEST 1 VIEW REASON FOR STUDY: Generalized weakness over the past 3days. Leg swelling. Nonsmoker with a h/o sleep apnea, asthma, PNA, CAD, CHF, A-fib, HTN, HLD, and DM who presents to the ED via EMS and accompanied by her daughter c/o generalized weakness for approximately 3 days. Pt's daughter reports pt taking multiple water pills daily for swelling in pt's legsthat has improved. She states pt has a caregiver that comes to the home a couple times per day. Today, daughter of pt states a home nurse came evaluate pt's previous UTI who states pt was feeling dizzy upon standing up this morning. Pt states they are thinking it may be A-fib. I couldn't walk. I could sit down and be okay, but as soon as I stand up my face would be real hot.Duration: today TECHNIQUE: Frontal radiographic view of the chest acquired. COMPARISON: 03/06/2019 and 04/07/2018 FINDINGS: LUNGS/PLEURA: Pulmonary vascularity appears normal. No infiltrate or effusion. Costophrenic angles are sharp. HEART/MEDIASTINUM: Senescent change of the aorta. Otherwise, normal cardiomediastinal silhouette. HARDWARE/LINES/TUBES: None. BONES: No acute findings. OTHER: Gilby are seen of the leftlower chest similar to prior. IMPRESSION: 1. No acute findings or infiltrate. THIS IS AN ELECTRONICALLY VERIFIED FINAL REPORT 12/20/2020 4:42 PM - Electronically signed by Noah Cuba M.D. MJ: RENETTA Report ID: [id number] Reading Location:[id number] CT Chest PE (CTA) W Contrast Result Date: 11/27/2020 Narrative: EXAM DESCRIPTION: CT CHEST PE (CTA) W CONTRAST REASON FOR STUDY: Chest tightness started11/26 in the evening. Pt recently had a PE in October that pt states they went in and had to remove. Hxof left breast cancer with lumpectomy. 100ml of Optiray 350, 20g iv lt forearmDuration: 11/26 TECHNIQUE: CT angiogram of the chest performed with intravenous contrast using helical scanning technique w ith dynamic intravenous contrast injection. Reconstructed coronal and sagittal MPR images reviewed.All images stored on PACS. 3D MIP images rendered on scanning unit and reviewed at time of interpretation. Automated exposure control was used as a dose optimization technique for this examination. CONTRAST TYPE/DOSE: 100 of optiray 350 injected via lt forearm COMPARISON: None FINDINGS: VASCULATURE: No identified pulmonary emboli. LUNGS: No nodules or masses. No pneumonia. PLEURA: No effusion. Nopneumothorax. MEDIASTINUM/MICHA: Calcified right paratracheal and right hilar lymph nodes compatiblewith old healed granulomatous disease. HEART: Heart size is normal with no pericardial effusion. AXILLA: No adenopathy. CHEST WALL: Surgical clips in the left breast are seen. HARDWARE/LINES/TUBES: None. UPPER ABDOMEN: No significant abnormality. MUSCULOSKELETAL: No significant abnormality. OTHER: No significant abnormality. IMPRESSION: 1. No acute pulmonary embolus. 2. Clear lungs bilaterally. THIS IS AN ELECTRONICALLY VERIFIED FINAL REPORT 11/27/2020 12:46 AM - Electronically signed by Vivek Stout M.D. BB: DEDRA Report ID: [id number] Reading Location: [id number] Current Facility-Administered Medications Medication Dose Route Frequency Provider Last Rate Last Admin acetaminophen (TYLENOL) tablet 500 mg 500 mg oral Q4H PRN Neeta Patel MD 500 mg at 12/21/20 1028 amitriptyline (ELAVIL) tablet 50 mg 50 mg oral Nightly Neeta Patel MD 50 mg at 12/22/202112 anastrozole (ARIMIDEX) tablet 1 mg 1 mg oral Daily Neeta Patel MD 1 mg at 12/23/20 09 apixaban (ELIQUIS) tablet 5 mg 5 mg oral Q12H Neeta Kearney MD 5 mg at 12/23/20 0901 [Held by Provider] aspirin chewable tablet 81 mg 81 mg oral Daily Wayne Snow MD 81 mg at 12/21/20 1411 bromfenac 0.07 % drops 1 drop 1 drop ophthalmic BID Neeta Patel MD 1 drop at 12/23/20 0908 canagliflozin (INVOKANA) tablet 100 mg 100 mg oral Before breakfast Neeta Patel MD 100 mg at 12/23/20 0903 cefepime (MAXIPIME) 1,000 mg in sodium chloride 0.9% 100 mL IVPB 1,000 mg intravenous Q12H Neeta Kearney MD 200 mL/hr at 12/23/20 0901 1,000 mg at 12/23/20 09 cholecalciferol (VITAMIN D-3) tablet 1,000 Units 1,000 Units oral Daily Neeta Patel MD 1,000 Units at 12/23/20 09 cyanocobalamin (Vitamin B-12) tablet 250 mcg 250 mcg oral Daily Neeta Patel MD 250 mcg at 12/23/20 0902 dextrose gel in packet 15 g 15 g oral Q15 Min PRN Neeta Patel MD Or dextrose (D10W) 10% bolus 250 mL 250 mL intravenous Q15 Min PRN Neeta Patel MD docusate sodium (COLACE) capsule 100 mg 100 mg oral BID PRN Neeta Patel MD dorzolamide (TRUSOPT) 2 % ophthalmic solution 1 drop 1 drop each eye BID KarNeeta mederos MD 1 drop at 12/23/20 0907 flecainide (TAMBOCOR) tablet 50 mg 50 mg oral BID Neeta Patel MD 50 mg at 12/23/20 09 furosemide (LASIX) tablet 40 mg 40 mg oral Daily Neeta Patel MD 40 mg at 12/23/20 0903 glucagon injection 1 mg 1 mg intramuscular Q30 Min PRN Neeta Patel MD insulin glargine (LANTUS, BASAGLAR, SEMGLEE) 100 unit/mL (3 mL) pen injection 8 Units 8 Units subcutaneous QAM Neeta Patel MD 8 Units at 12/23/20 0910 insulin lispro (HumaLOG, ADMELOG) 100 unit/mL pen injection 1-3 Units 1-3 Units subcutaneous Nightly Neeta Patel MD insulin lispro (HumaLOG, ADMELOG) 100 unit/mL pen injection 1-5 Units 1-5 Units subcutaneous TID with meals Neeta Patel MD 2 Units at 12/23/20 1224 levothyroxine (SYNTHROID) tablet 75 mcg 75 mcg oral Daily - 0600 Neeta Patel MD 75 mcg at 12/23/20 0514 linaCLOtide (LINZESS) capsule 72 mcg 72 mcg oral Before breakfast Neeta Patel MD 72 mcg at12/23/20 0900 multivit qqvlumrk-umol-VS-calcium (THERA-M) tablet 1 tablet 1 tablet oral Daily Neeta Patel MD 1 tablet at 12/23/20 0901 oxyCODONE (ROXICODONE) tablet 5 mg 5 mg oral Q4H PRN Neeta Patel MD pantoprazole DR (PROTONIX) extended release tablet 40 mg 40 mg oral Daily Neeta Patel MD 40 mg at 12/23/20 0902 potassium chloride ER (KLOR-CON) extended release tablet 20 mEq 20 mEq oral QID Neeta Patel MD 20 mEq at 12/23/20 1224 rosuvastatin (CRESTOR) tablet 10 mg 10 mg oral Nightly Neeta Patel MD 10 mg at 12/22/202112 senna-docusate (PERICOLACE) 8.6-50 mg per tablet 1 tablet 1 tablet oral BID PRN Neeta Patel MD 1 tablet at 12/22/20 1255 sodium chloride 0.9% flush 0.5-20 mL 0.5-20 mL intra-catheter Q8H KATHARINE Neeta Patel MD 5 mL at 12/23/20 1225 sodium chloride 0.9% flush 0.5-20 mL 0.5-20 mL intra-catheter PRN Neeta Patel MD spironolactone (ALDACTONE) tablet 25 mg 25 mg oral Daily Neeta Patel MD 25 mg at 12/23/20 09 verapamil SR (CALAN SR) extended release tablet 120 mg 120 mg oral Nightly Neeta Patel MD 120 mg at 12/22/202111 A/P: 1. NC anemia-improving -LETA, and neg EGD for bleeding -IV iron 3 days per heme (day #3/3) and outpt f/u labs -No signs RP bleeding -Hold ASA per GI (due to gastric polyps) but continue eliquis -No signs overload -F/u pathology as outpt per GI in summary, iron, on eliquis, PPI daily -F/u folate in process -Continue home b12 2. Paroxysmal a-fib -On eliquis 3. Hx of PE -No symptoms; on eliquis 4. UTI -F/u cultures, day #3 cefepime/5 days; no symptoms 5. Type 2 DM -Continue home insulin/sliding 6. CAD -No chest pain; off ASA per GI 7. Chronic diastolic CHF -Compensated on home lasix/aldactone 8. Constipation -PRN laxatives 9. Hypokalemia-chronic -Continue home K 4x daily MDM Moderate Principal Problem: Normocytic anemia Active Problems: Hypokalemia Urinary tract bacterial infections Paroxysmal atrial fibrillation (CMS/HCC) (HCC) History of pulmonary embolism Type 2 diabetes mellitus (HCC) Chronic diastolic (congestive) heart failure (HCC) Anxiety CAD (coronary artery disease) HTN (hypertension) Occult blood in stools Resolved Problems: No resolved hospital problems. Voice recognition software [employer]el[employer] Direct was used dictate and transcribe this document. [employer] Installer variances may occur. Despite proofreading, typographical errors may occur. Wayne Snow MD 12/23/2020 2:26 PM * Bob Weber OT - 12/22/2020 4:02 PM CDT Occupational Therapy 12/22/20 1544 General Session Type Treatment OT Received On 12/22/20 Safe Environment Notified RN;Call Light within Reach;Patient found sitting in Chair;Overbed Table within Reach Subjective Agreeable to Therapy Family/Caregiver Present Yes Pain Assessment Pain Assessment No/denies pain ADL ADL Comments change gown wtih min assist Grooming Grooming: Where assessed Chair Grooming: Level of assistance Standby Assist Grooming: Assistance with Teeth care Transfer 1 Transfer From 1 Chair with arms Transfer Type 1 To and from Transfer to 1 Chair with arms Technique 1 Sit to stand;Stand to sit Transfer Device 1 Wheeled walker Transfer Level of Assistance 1 Minimum Assist Trials/Comments 1 sit to stand x 3 with rest break, posterior lean with each initial stand Therapeutic Exercise - ROM/STRENGTH ROM/STRENGTH Yes Strength Yes Strength Exercise chair pushups x 3 reps each with min assist and cues for hand placement, positioning and technique. rest breaks with each repetition. Activity Tolerance Activity Tolerance Comments fair, requries rest breaks with all activity Assessment Prognosis Excellent Problem List Decreased functional mobility;Decreased ADL independence;Decreased IADL independence Plan Plan Continue with current plan;If this is the last note, consider this the discharge summary Recommendation/Plan OT Recommendation Home with family;Home Health OT Progress Progressing toward goals * Darin Corona MD - 12/22/2020 2:05 PM CDT Cardiology Progress Note 12/22/20 Chief complaint: Weakness and dizziness Symptoms: Patient was found sitting upright. She looked a lot better and not as pale now. We discussed EGD findings. She knows to continue on the Eliquis for the atrial fibrillation. Vital Signs: Vitals: 12/22/20 1140 12/22/20 1155 12/22/20 1215 12/22/20 1401 BP: 100/48 98/54 95/48 (!) 103/40 BP Location: Right arm Right arm Right arm Patient Position: Pulse: 72 70 72 75 Resp: Temp: 36.8 ??C (98.3 ??F) TempSrc: Skin SpO2: 95% 100% 95% Weight: Height: Intake/Output Summary (Last 24 hours) at 12/22/2020 1405 Last data filed at 12/22/2020 1404 Gross per 24 hour Intake 1060 ml Output 1725 ml Net -665 ml Wt Readings from Last 3 Encounters: 12/21/20 77 kg (169 lb 11.2 oz) 11/26/20 80.7 kg (178 lb) 07/31/20 79.4 kg (175 lb) Temp Min: 36.1 ??C (97 ??F) Max: 36.8 ??C (98.3 ??F) Pulse Min: 64 Max: 84 BP Min: 95/48 Max: 130/50 Resp Min: 18 Max: 22 SpO2 Min: 91 % Max: 100 % Physical Exam: Lungs: Clear to auscultation and percussion. Respirations unlabored Cardiac: PMI and JVP normal, S1 and S2 normal, no murmur, no gallop or rub Abd: Soft, nontender, BS active, no hepatosplenomegaly or masses, no abdominal bruit or enlarged aortic pulsation Extremities: No clubbing, cyanosis. No edema. Femoral pulses 2+. Pedal pulses 2+ Current Medications: Current Facility-Administered Medications Medication Dose Route Frequency Provider Last Rate Last Admin ??? acetaminophen (TYLENOL) tablet 500 mg 500 mg oral Q4H PRN Neeta Patel MD 500 mg at 12/21/20 1028 ??? amitriptyline (ELAVIL) tablet 50 mg 50 mg oral Nightly Neeta Patel MD 50 mg at 12/21/202051 ??? anastrozole (ARIMIDEX) tablet 1 mg 1 mg oral Daily Neeta Patel MD 1 mg at 12/22/20 1251 ??? [START ON 12/23/2020] apixaban (ELIQUIS) tablet 5 mg 5 mg oral Q12H Neeta Kearney MD ??? [Held by Provider] aspirin chewable tablet 81 mg 81 mg oral Daily Wayne Snow MD 81 mg at 12/21/20 1411 ??? bromfenac 0.07 % drops 1 drop 1 drop ophthalmic BID Neeta Patel MD 1 drop at 12/22/20 0935 ??? canagliflozin (INVOKANA) tablet 100 mg 100 mg oral Before breakfast Neeta Patel MD 100mg at 12/22/20 1249 ??? cefepime (MAXIPIME) 1,000 mg in sodium chloride 0.9% 100 mL IVPB 1,000 mg intravenous Q12H Neeta Kearney MD 200 mL/hr at 12/22/20 1235 1,000 mg at 12/22/20 1235 ??? cholecalciferol (VITAMIN D-3) tablet 1,000 Units 1,000 Units oral Daily Neeta Patel MD1,000 Units at 12/22/20 1251 ??? cyanocobalamin (Vitamin B-12) tablet 250 mcg 250 mcg oral Daily Neeta Patel MD 250 mcgat 12/22/20 1251 ??? dextrose gel in packet 15 g 15 g oral Q15 Min PRN Neeta Patel MD Or ??? dextrose (D10W) 10% bolus 250 mL 250 mL intravenous Q15 Min PRN Neeta Patel MD ??? docusate sodium (COLACE) capsule 100 mg 100 mg oral BID PRN Neeta Patel MD ??? dorzolamide (TRUSOPT) 2 % ophthalmic solution 1 drop 1 drop each eye BID Neeta Patel MD 1 drop at 12/22/20 0938 ??? ferric gluconate (FERRLECIT) 125 mg of elemental iron in sodium chloride 0.9% 100 mL IVPB 125 mg of elemental iron intravenous Once Neeta Patel MD 110 mL/hr at 12/22/20 1310 125 mg of elemental iron at 12/22/20 1310 ??? flecainide (TAMBOCOR) tablet 50 mg 50 mg oral BID Neeta Patel MD 50 mg at 12/22/20 1253 ??? furosemide (LASIX) tablet 40 mg 40 mg oral Daily Neeta Patel MD 40 mg at 12/22/20 1401 ??? glucagon injection 1 mg 1 mg intramuscular Q30 Min PRN Neeta Patel MD ??? insulin glargine (LANTUS, BASAGLAR, SEMGLEE) 100 unit/mL (3 mL) pen injection 8 Units 8 Units subcutaneous QAM Neeta Patel MD 8 Units at 12/22/20 1246 ??? insulin lispro (HumaLOG, ADMELOG) 100 unit/mL pen injection 1-3 Units 1-3 Units subcutaneous Nightly Neeta Patel MD ??? insulin lispro (HumaLOG, ADMELOG) 100 unit/mL pen injection 1-5 Units 1-5 Units subcutaneous TID with meals Neeta Patel MD 1 Units at 12/21/20 1805 ??? levothyroxine (SYNTHROID) tablet 75 mcg 75 mcg oral Daily - 0600 Neeta Patel MD 75 mcgat 12/22/20 0642 ??? linaCLOtide (LINZESS) capsule 72 mcg 72 mcg oral Before breakfast Neeta Patel MD 72 mcg at 12/22/20 1258 ??? multivit ycfggxny-tdvg-GU-calcium (THERA-M) tablet 1 tablet 1 tablet oral Daily Neeta Patel MD 1 tablet at 12/22/20 1254 ??? oxyCODONE (ROXICODONE) tablet 5 mg 5 mg oral Q4H PRN Neeta Patel MD ??? pantoprazole DR (PROTONIX) extended release tablet 40 mg 40 mg oral Daily Neeta Patel MD 40 mg at 12/22/20 1255 ??? potassium chloride ER (KLOR-CON) extended release tablet 20 mEq 20 mEq oral QID Neeta Patel MD 20 mEq at 12/22/20 1306 ??? rosuvastatin (CRESTOR) tablet 10 mg 10 mg oral Nightly Neeta Patel MD 10 mg at 12/21/20 1409 ??? senna-docusate (PERICOLACE) 8.6-50 mg per tablet 1 tablet 1 tablet oral BID PRN Neeta Patel MD 1 tablet at 12/22/20 1255 ??? sodium chloride 0.9% flush 0.5-20 mL 0.5-20 mL intra-catheter Q8H KATHARINE Neeta Patel MD 10 mL at 12/22/20 1255 ??? sodium chloride 0.9% flush 0.5-20 mL 0.5-20 mL intra-catheter PRN Neeta Patel MD ??? sodium phosphate 15 mmol in sodium chloride 0.9% 250 mL IVPB 15 mmol intravenous Once Neeta Patel MD 42.5 mL/hr at 12/22/20 1404 15 mmol at 12/22/20 1404 ??? spironolactone (ALDACTONE) tablet 25 mg 25 mg oral Daily Neeta Patel MD 25 mg at 12/22/20 1401 ??? verapamil SR (CALAN SR) extended release tablet 120 mg 120 mg oral Nightly Neeta Patel MD 120 mg at 12/21/20 2051 Labs: Recent Labs Lab Units 12/22/20 1118 12/22/20 0824 12/22/20 0423 12/21/20 0844 12/21/20 0738 12/21/20 0234 12/20/20 1610 SODIUM mmol/L -- -- 139 -- 136 -- 131* POTASSIUM PLASMA mmol/L -- -- 4.0 -- 3.1* -- 3.1* CHLORIDE mmol/L -- -- 106 -- 99 -- 95* CO2 mmol/L -- -- 25 -- 28 -- 26 BUN SERUM mg/dL -- -- 19 -- 25 -- 37* CREATININE mg/dL -- -- 0.68 -- 0.67 -- 0.84 [id number] mL/min/1.73 m2 -- -- 81 -- 82 -- 65 GLUCOSE mg/dL -- -- 97 < > 110 -- 162 POC GLUCOSE MONITOR mg/dL 109* < > -- < > -- < > -- CALCIUM mg/dL -- -- 9.5 -- 9.6 -- 10.8* ALBUMIN g/dL -- -- 3.6 -- -- -- 4.1 PHOSPHORUS PLASMA mg/dL -- -- 2.1* -- -- -- -- < > = values in this interval not displayed. Recent Labs Lab Units 12/20/20 1610 ALK PHOS Units/L 85 BILIRUBIN TOTAL mg/dL 0.2 TOTAL PROTEIN g/dL 6.7 ALT Units/L 18 AST Units/L 14 Recent Labs Lab Units 12/22/20 0423 12/21/20 1811 12/21/20 1059 WBC K/cumm 9.0 11.5* 10.1* HEMOGLOBIN g/dL 8.2* 8.9* 8.0* HEMATOCRIT % 28.3* 29.7* 26.8* PLATELETS K/cumm 281 317 279 Recent Labs Lab Units 12/20/20 1610 INR 1.8* Lab Results Component Value Date TSH 4.34 (H) 03/08/2019 FREET4 1.01 03/08/2019 Lab Results Component Value Date CHOL 112 08/18/2015 TRIG 175 (H) 08/18/2015 HDL 27 (L) 08/18/2015 Lab Results Lab Value Date/Time TROPONINT <0.01 03/06/2019 0654 TROPONINT <0.01 03/05/2019 2252 TROPONINT <0.01 10/02/2017 0010 TROPONINT <0.01 10/01/2017 1428 TROPONINT <0.01 09/30/20172023 TROPONINT <0.01 02/12/2016 0337 TROPONINT <0.01 02/11/2016 2114 Telemetry: Cardiac Rhythm: Normal sinus rhythm (12/22/20 0740) Cardiology Testing: ProBNP: EKG: Echocardiogram: Stress Test: Cardiac Cath: Impression: 1. Weakness and dizziness upon standing up likely due to hypovolemia and low hemoglobin count. Apparently not orthostatic, but patient by that time has received 1 L of fluid. 2. Hypokalemia at 3.1. 3. CAD, moderate by cardiac catheterization in 2010. Normal stress test in 2015. 4. Atrial fibrillation 1st diagnosed in 2016 in [place]. Now back on [facility]. OAC temporarily stopped because of large gluteal bleed in August 2020. Patient then developed a large PE needing suction thrombectomy in October 2020. . 5. Anemia with hemoglobin 8.2. Plan: 1. Replace potassium to over 4. 2. Transfuse with packed RBCs to get hemoglobin closer to 10 g. 3. Follow-up with Dr. Valencia in 4 to 6 weeks and p.r.n.. Previously scheduled next appointment was July 2021. CC: Destiney Camargo MD Schprechman, Jared, MD * Karey Malave, PT - 12/22/2020 1:45 PM CDT Physical Therapy INITIAL EVALUATION PATIENT'S NAME:Loc Anderson :1940 AGE:80 y.o. 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 Asthma ??? Atherosclerosis of coronary artery bypass graft ??? Chronic ischemic heart disease ??? Adiposity ??? Pure hypercholesterolemia ??? Hypokalemia ??? PAF (paroxysmal atrial fibrillation) (CMS/HCC) (HCC) ??? Breast cancer (CMS/HCC) (HCC) ??? Weakness generalized ? ? Nausea & vomiting ??? Lymphedema of both lower extremities ??? DM (diabetes mellitus) (HCC) ??? CATY on CPAP ??? Chronic diastolic congestive heart failure (CMS/HCC) (HCC) ??? Peripheral edema ??? Fall ??? Hypokalemia ??? Hypercalcemia ??? Multiple falls ??? Cystitis ??? Constipation ??? Recurrent inguinal hernia ??? Normocytic anemia ??? Hypokalemia ??? Urinary tract bacterial infections ??? Paroxysmal atrial fibrillation (CMS/HCC) (HCC) ??? History of pulmonary embolism ??? Type 2 diabetes mellitus (HCC) ??? Chronic diastolic (congestive) heart failure (HCC) ??? Anxiety ??? CAD (coronary artery disease) ??? HTN (hypertension) ??? Occult blood in stools Past Medical History: Diagnosis Date ??? A-fib [...] BILATERAL SALPINGOOPHORECTOMY 1980 Hysterectomy, total abdominal, BSO SUBJECTIVE LIVES WITH: LIVING ENVIRONMENT: in a house with ramp to enter PRIOR LEVEL OF FUNCTION: assist for bathing, independent with dressing, dependent for cooking and cleaning. Sedentary EQUIPMENT OWNED: power w/c, wheeled walker, manual w/c EQUIPMENT USED: ambulates with wheeled walker with assist of another person FALL HISTORY: reports fall a couple of months ago SOCIAL SUPPORTS: and dtrs and family PATIENT/FAMILY GOAL: none stated MENTAL STATUS/ORIENTATION: Alert and oriented x4 OBJECTIVE PRECAUTIONS: fall risk APPEARANCE/POSTURE: supine in bed with IV attached PAIN: Pre-therapy pain level: 0/10 Pain location: NA Pain intervention: NA Post-therapy pain level/response to intervention: 0/10 LE ASSESSMENTS: Right LE ROM:WFL Left LE ROM: WFL Right LE strength: hip 3-/5, knee ext 4/5, knee flex 2/5, ankle DF 5/5 Left LE strength: hip 3/5, knee ext 4/5, knee flex 2/5, ankle DF 5/5 Coordination: not tested Tone: WFL MOBILITY: Bed mobility: supine to sit with min assist for LE 's Transfers: sit to stand with min assist stabilizing walker, stand to sit with cg assist Ambulation: Distance: 30' Assistive device: rolling walker Level of assist: contact guard Deviations: LE bilateral internal rotation, scissoring gait Stairs: Not tested Balance/Special Tests: Static sitting balance: good Dynamic sitting balance: good Static standing balance: good- sitting Dynamic standing balance: good- sitting 6 CLICK: Basic Mobility - 6 Click How much difficulty does the patient have: Turning over in bed: A little How much difficulty does the patient currently have: Sitting down and standing up from a chair witharms?: A little How much difficulty does the patient have: Moving from lying on back to sitting on the side of the bed?: A little How much difficulty does the patient have: Moving to and from a bed to a chair including wheelchair?: A little How much help does the patient currently need: Walk in hospital room?: A little How much help from another person does the patient currently need: Climbing 3-5 steps with a railing?: A little Total 6 Click Score (range 6-24): 18 Score Interpretation: 18 APPEARANCE/POSTURE (end of session): sitting in bedside chair with LE's elevated EDUCATION: patient educated on plan of care RESPONSE TO EDUCATION: needs reinforcement ASSESSMENT PROBLEM LIST: decreased strength, balance, mobility and gait BARRIERS TO LEARNING: Physical and Emotional BARRIERS TO DISCHARGE: Limited family support, Limited safety awareness, Anxiety, Limited insight into deficits, Lower extremity weakness and Long standing deficits REHAB POTENTIAL/PROGNOSIS: fair PLAN RECOMMENDATIONS: home with 24 hour family assist TREATMENT PLAN/INTERVENTIONS: gait training, strengthening, balance and mobility training FREQUENCY: daily EQUIPMENT RECOMMENDATIONS: has wheeled walker and w/c Refer to multi-disciplinary care plan section for PT specific goals. Multi-Disciplinary Problems (from Physical Therapy) Active Problems Problem: PT [facility] Start Date: 12/22/20 Goal Start Date Expected End Date End Date PT [facility] 1 12/22/20 12/29/20 -- Goal Details: Supine to/from sit with min assist Goal Start Date Expected End Date End Date PT [facility] 2 12/22/20 12/29/20 -- Goal Details: Sit to/from stand with cg assist Goal Start Date Expected End Date End Date PT [facility] 3 12/22/20 12/29/20 -- Goal Details: Bed to/from chair with cg assist Goal Start Date Expected End Date End Date PT [facility] 4 12/22/20 12/29/20 -- Goal Details: Ambulate 40' with wheeled walker with cg assist Goal Start Date Expected End Date End Date PT [facility] 5 12/22/20 12/29/20 -- Goal Details: HEP with LE's with cg assist x10 reps If this is the last note, please consider this the discharge summary. * Wayne Snow MD - 12/22/2020 1:30 PM CDT General Medicine Daily Progress SUBJECTIVE Chief complaint of Weakness Interval History: No signs of bleeding No chest pain/dyspnea Vitals labs/reviewed Spoke to daughter Ange at length over the phone GI spoke to her and decided on EGD No bleeding on EGD OBJECTIVE Vitals: 24hr Min/Max: Temp Min: 36.1 ??C (97 ??F) Max: 36.8 ??C (98.3 ??F) Pulse Min: 64 Max: 84 BP Min: 95/48 Max: 130/50 Resp Min: 18 Max: 22 SpO2 Min: 91 % Max: 100 % Most Recent : Vitals: 12/22/20 1215 BP: 95/48 Pulse: 72 Resp: 18 Temp: 36.8 ??C (98.3 ??F) SpO2: 95% I/O last 2 completed shifts: In: 1215 [P.O.:840; Blood:375] Out: 1725 [Urine:1725] I/O this shift: In: 210 [I.V.:10; IV Piggyback:200] Out: - Physical Exam: Eyes: EOMI, MONTY, sclare non icteric Neck: supple, no nuchal ridigity, no gross carotid bruits appreciated Pharynx: No gross oral lesion, tongue midline, mucosa moist Lungs CTA Heart: [id number], no significant murmur or gallop Abd: +BS, Non Tender, Non distended, No gross hepatomegaly Lower Ext: No gross edema, pedal artery pulses are palpable bilaterally Neuro: No new deficits appreciated Musculoskeletal: no gross joint erythema, edema, tenderness Skin: No new change Lab/Current Medication Review: Recent Results (from the past 24 hour(s)) POCT glucose Collection Time: 12/21/20 5:33 PM Result Value Ref Range Glucose, POC 152 (H) 71 - 98 mg/dL CBC without differential Collection Time: 12/21/20 6:11 PM Result Value Ref Range WBC 11.5 (H) 3.8 - 9.9 K/cumm Hgb 8.9 (L) 11.9 - 15.5 g/dL Hct 29.7 (L) 35.6 - 45.5 % Plt 317 150 - 400 K/cumm MPV 10.0 9.1 - 12.3 fL RBC 3.76 (L) 3.90 - 5.20 M/cumm MCV 79.0 (L) 81.3 - 96.4 fL MCH 23.7 (L) 27.1 - 33.3 pg MCHC 30.0 (L) 32.3 - 35.7 g/dL RDW CV 17.8 (H) 11.1 - 14.9 % RDW SD 49.5 (H) 35.7 - 48.1 fL NRBC abs 0.06 (H) 0.00 - 0.01 K/cumm POCT glucose Collection Time: 12/21/20 9:08 PM Result Value Ref Range Glucose, POC 167 (H) 71 - 98 mg/dL POCT glucose Collection Time: 12/22/20 2:02 AM Result Value Ref Range Glucose, POC 120 (H) 71 - 98 mg/dL CBC with auto differential Collection Time: 12/22/20 4:23 AM Result Value Ref Range WBC 9.0 3.8 - 9.9 K/cumm Hgb 8.2 (L) 11.9 - 15.5 g/dL Hct 28.3 (L) 35.6 - 45.5 % Plt 281 150 - 400 K/cumm MPV 10.2 9.1 - 12.3 fL RBC 3.56 (L) 3.90 - 5.20 M/cumm MCV 79.5 (L) 81.3 - 96.4 fL MCH 23.0 (L) 27.1 - 33.3 pg MCHC 29.0 (L) 32.3 - 35.7 g/dL RDW CV 18.1 (H) 11.1 - 14.9 % RDW SD 51.8 (H) 35.7 - 48.1 fL NRBC abs 0.04 (H) 0.00 - 0.01 K/cumm Renal function panel Collection Time: 12/22/20 4:23 AM Result Value Ref Range Sodium 139 135 - 145 mmol/L Potassium, pl 4.0 3.3 - 4.9 mmol/L Chloride 106 97 - 110 mmol/L CO2 25 22 - 32 mmol/L Anion gap 8 2 - 15 mmol/L BUN 19 8 - 25 mg/dL Creatinine 0.68 0.60 - 1.10 mg/dL Glucose 97 70 - 199 mg/dL Calcium 9.5 8.5 - 10.3 mg/dL Phosphorus, pl 2.1 (L) 2.3 - 4.5 mg/dL Albumin 3.6 3.5 - 5.0 g/dL Vitamin B12 Collection Time: 12/22/20 4:23 AM Result Value Ref Range Vitamin B12 1,571 (H) 230 - 1,250 pg/mL Differential, auto Collection Time: 12/22/20 4:23 AM Result Value Ref Range Neutrophil abs 5.5 1.7 - 6.5 K/cumm Imm gran abs 0.1 0.0 - 0.1 K/cumm Lymphocyte abs 1.2 0.8 - 3.3 K/cumm Monocyte abs 1.8 (H) 0.2 - 0.8 K/cumm Eosinophil abs 0.3 0.0 - 0.5 K/cumm Basophil abs 0.0 0.0 - 0.1 K/cumm Neutrophil pct 61.7 % Imm gran pct 1.6 % Lymphocyte pct 13.2 % Monocyte pct 19.8 % Eosinophil pct 3.3 % Basophil pct 0.4 % eGFR Collection Time: 12/22/20 4:23 AM Result Value Ref Range eGFR 81 mL/min/1.73 m2 POCT glucose Collection Time: 12/22/20 8:24 AM Result Value Ref Range Glucose, POC 96 71 - 98 mg/dL POCT glucose Collection Time: 12/22/20 11:18 AM Result Value Ref Range Glucose, POC 109 (H) 71 - 98 mg/dL ECG 12 lead Result Date: 12/21/2020 Narrative: Vent Rate: 77 bpm RR Interval: 771 msec [place] Interval: 192 msec QRS Duration: 112 msec QT Interval: 415 msec QTC Interval: 447 msec P-R-T [place]: 46 - -28 - 55 degrees SINUS RHYTHM BORDERLINE LEFT AXIS DEVIATION [QRS AXIS < -20] MODERATE INTRAVENTRICULAR CONDUCTION DELAY [110+ ms QRS DURATION] BORDERLINE ECG No change from prior EKG Electronically Signed By: Landon Valencia MD ECG 12 lead Result Date: 12/21/2020 Narrative: Vent Rate: 81 bpm RR Interval: 736 msec [place] Interval: 162 msec QRS Duration: 119 msec QT Interval: 326 msec QTC Interval: 363 msec P-R-T [place]: -11 - -39 - 35 degrees Probable junctional rhythm LEFT AXIS DEVIATION [QRS AXIS < - 30] PATTERN CONSISTENT WITH PULMONARY DISEASE MODERATE INTRAVENTRICULAR CONDUCTION DELAY [110+ ms QRS DURATION] NONSPECIFIC ST \T\ T-WAVE ABNORMALITY Compared to prior EKG, nonspecific ST/T changes are new and junctional rhythm has replaced sinus rhythm. Electronically Signed By: Dr Darin Corona ECG 12 lead Result Date: 11/27/2020 Narrative: Vent Rate: 83 bpm RR Interval: 719 msec [place] Interval: 206 msec QRS Duration: 134 msec QT Interval: 405 msec QTC Interval: 445 msec P-R-T [place]: 72 - -54 - 59 degrees SINUS RHYTHM INTRAVENTRICULAR CONDUCTION DELAY [130+ ms QRS DURATION] ABNORMAL ECG No change from prior EKG Electronically Signed By: Landon Valencia MD CT Abdomen Pelvis W Contrast Result Date: 12/20/2020 Narrative: EXAM DESCRIPTION: CT ABDOMEN PELVIS W CONTRAST REASON FOR STUDY: asthma, PNA, CAD, CHF, A-fib, HTN, HLD, and DM who presents to the ED via EMS and accompanied by her daughter c/o generalized weakness for approximately 3 days PSH cade hernia ike 100 ml optiray [id number] g r FA Duration: 3 days TECHNIQUE: CT scan of the abdomen and pelvis performed with intravenous and without oral contrastusing helical scanning technique with dynamic intravenous contrast injection. Reconstructed coronaland sagittal MPR images reviewed. All images stored on PACS. Automated exposure control was used asa dose optimization technique for this examination. CONTRAST TYPE/DOSE: 100 mL of Optiray 320 inject ed via right forearm COMPARISON: 11/27/2020 FINDINGS: LOWER CHEST: Coronary artery, aortic valvularand mitral calcifications. Mild cardiomegaly. LIVER: Normal size. No identified cystic or solid masses. GALLBLADDER: Surgically absent. BILE DUCTS: No intrahepatic or extrahepatic ductal dilatation. SPLEEN: Punctate calcifications throughout the spleen consistent with prior granulomatous disease. PANCREAS: No identified cystic or solid masses. No significant calcifications. No adjacent inflammation or peripancreatic fluid collections. Pancreatic duct not dilated. ADRENALS: Normal. KIDNEYS/URINARY TRACT: No identified significant cystic or solid masses. No visualized stones. No hydronephrosis or hydroureter. Symmetric enhancement. The urinary bladder is decompressed with a Schmitt catheter in place. GI: Moderate amount of formed stool throughout the colon. No dilated bowel loops. No obvious wall thickening. No significant diverticular disease. The appendix is not discretely visualized although there are no secondary signs of inflammatory change within the right lower quadrant. PERITONEUM: No ascites or free air. RETROPERITONEUM: No mass or adenopathy. REPRODUCTIVE: Uterus is surgicallyabsent. VASCULATURE: Calcified atheroma of the abdominal aorta and its branch vessels. MUSCULOSKELETAL: Levoconvex scoliotic curvature of the lumbar spine with multilevel degenerative change. OTHER: Fat containing right femoral hernia. IMPRESSION: Moderate amount of stool throughout the colon likely due to underlying constipation. Otherwise, no acute findings to explain the patient's current symptoms. THIS IS AN ELECTRONICALLY VERIFIED FINAL REPORT 12/20/2020 7:38 PM - Electronically signed by Deborah Garcia M.D. TS: SHANNON Report ID: [id number] Reading Location: [id number] CT Abdomen Pelvis W Contrast Result Date: 11/27/2020 Narrative: EXAM DESCRIPTION: CT ABDOMEN PELVIS W CONTRAST REASON FOR STUDY: Generalized abd pain, nausea, and vomiting started in the evening of 11/26. Hx of cholecystectomy, hysterectomy, left breastcancer with lumpectomy. Pt had blood clot removed in October. 100ml of Optiray 350, 20g iv lt forearmDuration: 11/26 evening TECHNIQUE: CT scan of the abdomen and pelvis performed with intravenous and without oral contrast using helical scanning technique with dynamic intravenous contrast injection. Reconstructed coronal and sagittal MPR images reviewed. All images stored on PACS. Automated exposure control was used as a dose optimization technique for this examination. CONTRAST TYPE/DOSE: 100 of op tiray 350 injected via lt forearm COMPARISON: None FINDINGS: LOWER CHEST: Lung bases clear. Heart size normal. Heavy annular calcification versus prosthesis. Effusion. LIVER/BILIARY: Liver unremarkable. Biliary tree normal in caliber. GALLBLADDER: Absent. SPLEEN: Normal. PANCREAS: Normal. ADRENAL GLANDS: Normal. KIDNEYS/URINARY TRACT: Kidneys and ureters appear normal. Bladder collapsed around Schmitt balloon. GI: Stomach and small bowel appear normal. Large amount of stool throughout the colon. No wall thickening or inflammation. Appendix not confidently distinguished from adjacent bowel. OTHER ABDOMINAL/PELVIS: Major vascular structures are grossly patent and normal in caliber. Moderate athe rosclerotic calcification. 50% stenosis of the right common iliac artery. No enlarged lymph node orfree fluid. MSK: Moderate disc disease and facet arthropathy. BODY WALL: Normal. IMPRESSION: Large amount of stool throughout the colon. No colitis or other acute abnormality identified. THIS IS AN EL ECTRONICALLY VERIFIED FINAL REPORT 11/27/2020 12:42 AM - Electronically signed by Femi Fermin M.D. AR: SPARKLE Report ID: [id number] Reading Location: [id number] XR Chest 1 Vw Portable Result Date: 12/20/2020 Narrative: EXAM DESCRIPTION: XR CHEST 1 VIEW REASON FOR STUDY: Generalized weakness over the past 3days. Leg swelling. Nonsmoker with a h/o sleep apnea, asthma, PNA, CAD, CHF, A-fib, HTN, HLD, and DM who presents to the ED via EMS and accompanied by her daughter c/o generalized weakness for approximately 3 days. Pt's daughter reports pt taking multiple water pills daily for swelling in pt's legsthat has improved. She states pt has a caregiver that comes to the home a couple times per day. Today, daughter of pt states a home nurse came evaluate pt's previous UTI who states pt was feeling dizzy upon standing up this morning. Pt states they are thinking it may be A-fib. I couldn't walk. I could sit down and be okay, but as soon as I stand up my face would be real hot.Duration: today TECHNIQUE: Frontal radiographic view of the chest acquired. COMPARISON: 03/06/2019 and 04/07/2018 FINDINGS: LUNGS/PLEURA: Pulmonary vascularity appears normal. No infiltrate or effusion. Costophrenic angles are sharp. HEART/MEDIASTINUM: Senescent change of the aorta. Otherwise, normal cardiomediastinal silhouette. HARDWARE/LINES/TUBES: None. BONES: No acute findings. OTHER: Joanie are seen of the leftlower chest similar to prior. IMPRESSION: 1. No acute findings or infiltrate. THIS IS AN ELECTRONICALLY VERIFIED FINAL REPORT 12/20/2020 4:42 PM - Electronically signed by Noah Cuba M.D. MJ: RENETTA Report ID: [id number] Reading Location:[place] [id number] CT Chest PE (CTA) W Contrast Result Date: 11/27/2020 Narrative: EXAM DESCRIPTION: CT CHEST PE (CTA) W CONTRAST REASON FOR STUDY: Chest tightness started11/26 in the evening. Pt recently had a PE in October that pt states they went in and had to remove. Hxof left breast cancer with lumpectomy. 100ml of Optiray 350, 20g iv lt forearmDuration: 11/26 TECHNIQUE: CT angiogram of the chest performed with intravenous contrast using helical scanning technique w ith dynamic intravenous contrast injection. Reconstructed coronal and sagittal MPR images reviewed.All images stored on PACS. 3D MIP images rendered on scanning unit and reviewed at time of interpretation. Automated exposure control was used as a dose optimization technique for this examination. CONTRAST TYPE/DOSE: 100 of optiray 350 injected via lt forearm COMPARISON: None FINDINGS: VASCULATURE: No identified pulmonary emboli. LUNGS: No nodules or masses. No pneumonia. PLEURA: No effusion. Nopneumothorax. MEDIASTINUM/MICHA: Calcified right paratracheal and right hilar lymph nodes compatiblewith old healed granulomatous disease. HEART: Heart size is normal with no pericardial effusion. AXILLA: No adenopathy. CHEST WALL: Surgical clips in the left breast are seen. HARDWARE/LINES/TUBES: None. UPPER ABDOMEN: No significant abnormality. MUSCULOSKELETAL: No significant abnormality. OTHER: No significant abnormality. IMPRESSION: 1. No acute pulmonary embolus. 2. Clear lungs bilaterally. THIS IS AN ELECTRONICALLY VERIFIED FINAL REPORT 11/27/2020 12:46 AM - Electronically signed by Vivek Stout M.D. BB: DEDRA Report ID: [id number] Reading Location: [place] [address] Current Facility-Administered Medications Medication Dose Route Frequency Provider Last Rate Last Admin ??? acetaminophen (TYLENOL) tablet 500 mg 500 mg oral Q4H PRN Neeta Patel MD 500 mg at 12/21/20 1028 ??? amitriptyline (ELAVIL) tablet 50 mg 50 mg oral Nightly Neeta Patel MD 50 mg at 12/21/20 2052 ??? anastrozole (ARIMIDEX) tablet 1 mg 1 mg oral Daily Neeta Patel MD 1 mg at 12/22/20 1251 ??? [START ON 12/23/2020] apixaban (ELIQUIS) tablet 5 mg 5 mg oral Q12H [facility] Neeta Patel MD ??? [Held by Provider] aspirin chewable tablet 81 mg 81 mg oral Daily Wayne Snow MD 81 mg at 12/21/20 1411 ??? bromfenac 0.07 % drops 1 drop 1 drop ophthalmic BID Neeta Patel MD 1 drop at 12/22/20 0935 ??? canagliflozin (INVOKANA) tablet 100 mg 100 mg oral Before breakfast Neeta Patel MD 100mg at 12/22/20 1249 ??? cefepime (MAXIPIME) 1,000 mg in sodium chloride 0.9% 100 mL IVPB 1,000 mg intravenous Q12H [facility] Neeta Patel MD 200 mL/hr at 12/22/20 1235 1,000 mg at 12/22/20 1235 ??? cholecalciferol (VITAMIN D-3) tablet 1,000 Units 1,000 Units oral Daily Neeta Patel MD1,000 Units at 12/22/20 1251 ??? cyanocobalamin (Vitamin B-12) tablet 250 mcg 250 mcg oral Daily Neeta Patel MD 250 mcgat 12/22/20 1251 ??? dextrose gel in packet 15 g 15 g oral Q15 Min PRN Neeta Patel MD Or ??? dextrose (D10W) 10% bolus 250 mL 250 mL intravenous Q15 Min PRN Neeta Patel MD ??? docusate sodium (COLACE) capsule 100 mg 100 mg oral BID PRN Neeta Patel MD ??? dorzolamide (TRUSOPT) 2 % ophthalmic solution 1 drop 1 drop each eye BID Neeta Patel MD 1 drop at 12/22/20 0938 ??? ferric gluconate (FERRLECIT) 125 mg of elemental iron in sodium chloride 0.9% 100 mL IVPB 125 mg of elemental iron intravenous Once Neeta Patel MD 110 mL/hr at 12/22/20 1310 125 mg of elemental iron at 12/22/20 1310 ??? flecainide (TAMBOCOR) tablet 50 mg 50 mg oral BID Neeta Patel MD 50 mg at 12/22/20 1253 ??? furosemide (LASIX) tablet 40 mg 40 mg oral Daily Neeta Patel MD 40 mg at 12/21/20 1156 ??? glucagon injection 1 mg 1 mg intramuscular Q30 Min PRN Neeta Patel MD ??? insulin glargine (LANTUS, BASAGLAR, SEMGLEE) 100 unit/mL (3 mL) pen injection 8 Units 8 Units subcutaneous QAM Neeta Patel MD 8 Units at 12/22/20 1246 ??? insulin lispro (HumaLOG, ADMELOG) 100 unit/mL pen injection 1-3 Units 1-3 Units subcutaneous Nightly Neeta Patel MD ??? insulin lispro (HumaLOG, ADMELOG) 100 unit/mL pen injection 1-5 Units 1-5 Units subcutaneous TID with meals Neeta Patel MD 1 Units at 12/21/20 1805 ??? levothyroxine (SYNTHROID) tablet 75 mcg 75 mcg oral Daily - 0600 Neeta Patel MD 75 mcgat 12/22/20 0642 ??? linaCLOtide (LINZESS) capsule 72 mcg 72 mcg oral Before breakfast Neeta Patel MD 72 mcg at 12/22/20 1258 ??? multivit htsknuhe-nhup-EX-calcium (THERA-M) tablet 1 tablet 1 tablet oral Daily Neeta Patel MD 1 tablet at 12/22/20 1254 ??? oxyCODONE (ROXICODONE) tablet 5 mg 5 mg oral Q4H PRN Neeta Patel MD ??? pantoprazole DR (PROTONIX) extended release tablet 40 mg 40 mg oral Daily Neeta Patel MD 40 mg at 12/22/20 1255 ??? potassium chloride ER (KLOR-CON) extended release tablet 20 mEq 20 mEq oral QID Neeta Patel MD 20 mEq at 12/22/20 1306 ??? rosuvastatin (CRESTOR) tablet 10 mg 10 mg oral Nightly Neeta Patel MD 10 mg at 12/21/20 1409 ??? senna-docusate (PERICOLACE) 8.6-50 mg per tablet 1 tablet 1 tablet oral BID PRN Neeta Patel MD 1 tablet at 12/22/20 1255 ??? sodium chloride 0.9% flush 0.5-20 mL 0.5-20 mL intra-catheter Q8H KATHARINE Neeta Patel MD 10 mL at 12/22/20 1255 ??? sodium chloride 0.9% flush 0.5-20 mL 0.5-20 mL intra-catheter PRN Neeta Patel MD ??? sodium phosphate 15 mmol in sodium chloride 0.9% 250 mL IVPB 15 mmol intravenous Once Neeta Patel MD ??? spironolactone (ALDACTONE) tablet 25 mg 25 mg oral Daily Neeta Patel MD ??? verapamil SR (CALAN SR) extended release tablet 120 mg 120 mg oral Nightly Neeta Patel MD 120 mg at 12/21/202050 A/P: 1. NC anemia -LETA, and neg EGD for bleeding -IV iron 3 days per heme (day #2/3) and outpt f/u -No signs RP bleeding -Hold ASA per GI (due to gastric polyps) but continue eliquis -No signs overload -F/u pathology as outpt per GI in summary, iron, on eliquis, PPI daily -F/u orthostats to see if weakness improved -F/u folate in AM -Continue home b12 2. Paroxysmal a-fib -On eliquis 3. Hx of PE -No symptoms; on eliquis 4. UTI -F/u cultures, day #2 cefepime/5 days 5. Type 2 DM -Continue home insulin/sliding 6. CAD -No chest pain; off ASA per GI 7. Chronic diastolic CHF -Compensated on home lasix/aldactone 8. Constipation -PRN laxatives 9. Hypokalemia-chronic -Continue home K 4x daily MDM High Principal Problem: Normocytic anemia Active Problems: Hypokalemia Urinary tract bacterial infections Paroxysmal atrial fibrillation (CMS/HCC) (HCC) History of pulmonary embolism Type 2 diabetes mellitus (HCC) Chronic diastolic (congestive) heart failure (HCC) Anxiety CAD (coronary artery disease) HTN (hypertension) Occult blood in stools Resolved Problems: No resolved hospital problems. Voice recognition software [employer] Fluency Direct was used dictate and transcribe this document. [employer] Installer variances may occur. Despite proofreading, typographical errors may occur. Wayne Snow MD 12/22/2020 1:30 PM * Neeta Patel MD - 12/22/2020 8:18 AM CDT Noted her stool occult blood testing was positive. Patient received blood transfusion yesterday andcompared to last evening blood count declined from 8.9-8.2. I discussed with the daughter that the patient will benefit from upper endoscopy to rule out upper GI source of chronic blood loss. The daughter agreed. With that in mind will proceed with upper endoscopy today. * Jessica Landrum, PT - 12/21/2020 2:59 PM CDT Physical Therapy 12/21/20 1458 General Session Type Evaluation Rehab Only - Missed Reasons - All Disciplines Patient request;Patient ill (Comment);Patient unwilling to participate Attempted PT evaluation at 1455. Patient c/o dizziness and feeling weak/faint. Patient and her refusing out of bed activity at this time. Will check back tomorrow. Jessica Smith, PT, DPT * Maya Marquez, OT - 12/21/2020 11:04 AM CDT Occupational Therapy Initial Evaluation Past Medical History: Diagnosis Date ??? A-fib (CMS/HCC) (HCC) ??? Anemia Anemia ??? Asthma Asthma ??? Atrial fibrillation (CMS/HCC) (HCC) ??? Chronic coronary artery disease Coronary artery disease ??? Diabetes mellitus (HCC) ??? Familial spastic paraplegia (CMS/HCC) (HCC) ??? Glaucoma Glaucoma ??? Glaucoma ??? Herpes zoster Herpes zoster ??? HX OTHER MEDICAL Transient ischemic attack (TIA) ??? HX OTHER MEDICAL Fx Sacrum 2000 ??? HX OTHER MEDICAL Lymphatic edema ??? HX OTHER MEDICAL Spinal Cerebellum Degeneration ??? HX OTHER MEDICAL URI/GERD; Outcome: improved ??? HX OTHER MEDICAL TIA ??? Hyperlipidemia Hyperlipidemia ??? Hypertension Hypertension ??? Lymphatic edema ??? Osteoarthritis Osteoarthritis ??? Pneumonia ??? Sleep apnea 12/21/20 0931 General Chart Reviewed Yes Session Type Evaluation OT Received On 12/21/20 Subjective Agreeable to Therapy Additional Pertinent History Patient admitted with anemia/suspected GI bleed Family/Caregiver Present Yes Occupational Therapy-Patient Goal To return home with 09/12 supervision Precautions Precautions Fall risk;Hearing Home Living Type of Home House Home Layout One level Home Access Ramped entrance Bathroom Shower/Tub Tub/shower unit Bathroom Toilet Raised Bathroom Equipment Commode;Grab bars around toilet Home Mobility Equipment Wheeled walker;4-Wheeled walker;Wheelchair-manual Additional Comments Spongebathing Prior Function Level of [place] Needs assistance with ADLs;Needs assistance with functional transfers;Needs assistance with ambulation;Dependent with homemaking with ambulation Lives With Spouse Receives Help From Spouse/Significant other;Family;flow floor attendant Prior Function Comments Assist 2x per day from family friend LE Dressing LE Dressing: Where assessed Sitting LE Dressing: Level of assistance Dependent LE Dressing: Assistance with Don/doff R sock;Don/doff L sock Toileting Toileting: Where assessed Bedside Commode Toileting: Level of assistance Dependent Toileting: Assistance with Perineal hygiene Toilet Transfers Toilet Transfer to Standard toilet Toilet Transfer Technique Stand pivot Toilet Transfer: Equipment Wheeled walker Toilet Transfers Moderate assistance Toilet Transfers Comments Received patient on bedside commode, moderate assist off commode and stand pivot to bed Pain Assessment Pain Assessment No/denies pain Activity Tolerance Activity Tolerance Comments Fair Cognition Overall Cognitive Status WFL Orientation Oriented X4 (person, place, time, situation) Hand Function Gross Grasp Functional Bed Mobility 1 Bed Mobility From 1 Edge of bed Bed Mobility Type 1 To Bed Mobility to 1 Supine Bed Mobility Comments 1 Moderate-Minimal Assist x 2 Transfer 1 Transfer From 1 Sit;Bed Transfer Type 1 To and from Transfer to 1 Stand Technique 1 Sit to stand;Stand to sit Transfer Device 1 Wheeled walker Transfer Level of Assistance 1 Moderate Assist RUE Assessment RUE Assessment WFL LUE Assessment LUE Assessment WFL Assessment Prognosis Excellent Problem List Decreased functional mobility;Decreased ADL independence Plan Plan Plan of care initiated;If this is the last note, consider this the discharge summary Recommendation/Plan OT Recommendation Home Health OT;Home with 24 hour supervision;Home with family OT Frequency 3-5x/wk (Friday-Friday, Sat. prn) Treatment/Interventions ADL/IADL retraining;Functional mobility training;Functional transfer training OT Evaluation Complete Yes Multi-Disciplinary Problems (from Occupational Therapy) Active Problems Problem: Bathing Start Date: 12/21/20 Goal Start Date Expected End Date End Date STG - Patient will bathe body 12/21/20 12/28/20 -- Goal Details: seated/standing with moderate assist Problem: Grooming Start Date: 12/21/20 Goal Start Date Expected End Date End Date STG - Patient will complete grooming 12/21/20 12/28/20 -- Goal Details: seated/standing with SBA Problem: Transfers Start Date: 12/21/20 Goal Start Date Expected End Date End Date STG - Patient will perform toilet transfer 12/21/20 12/28/20 -- Goal Details: or bedside commode using wheeled walker with SBA documented in this encounter H&P Notes * Wayne Snow MD - 12/21/2020 12:48 PM CDT History and Physical Hospitalists services Date of service: 12/21/2020 Primary care provider: Destieny Camargo MD Chief Complaint: Weakness HPI: This is a 80 year old woman with PMH diastolic CHF, HTN, paroxysmal a-fib, PE, HTN presenting with generalized weakness for the past several days with no alleviating/exacerbating factors, prior hx and denies any pain. Denies any nico hematochezia/melena or any chest pain/dyspnea; Is compliant withall of her medications; recently had a PE of note. Sees cardiology actively of note. Denies any focal weakness, headaches, seizure like episodes and any diarrhea. BP soft in ED; Hg dropped 12--->7.6 in 1 month; K was low and replaced. LA WNL. Got 1U prbc. EKG reviewed; CT findings constipation on imaging. Resting in the room when I saw her. Past Medical History: Diagnosis Date ??? A-fib [...] prolene mesh 01/26 ??? OTHER SURGICAL HISTORY 2012 URI/GERD: Medical Management ??? OTHER SURGICAL HISTORY ulcer removed from vocal cord ??? TOTAL ABDOMINAL HYSTERECTOMY W/ BILATERAL SALPINGOOPHORECTOMY 1981 Hysterectomy, total abdominal, BSO Medications Prior to Admission Medication Sig Dispense Refill Last Dose ??? apixaban (ELIQUIS) 5 mg tablet 5 mg Unknown at Unknown time ??? bromfenac 0.07 % drops Administer 1 drop into affected eye(s) 2 (two) times a day Unknown at Unknown time ??? canagliflozin (INVOKANA) 100 mg tablet 100 mg daily Unknown at Unknown time ??? cholecalciferol (cholecalciferol) 25 mcg (1,000 unit) tablet Take 1,000 Units by mouth daily Unknown at Unknown time ??? cyanocobalamin (Vitamin B-12) 100 mcg tablet Take 100 mcg by mouth daily Unknown at Unknown time ??? dorzolamide (TRUSOPT) 2 % ophthalmic solution Administer 1 drop into both eyes 2 (two) times a day Unknown at Unknown time ??? esomeprazole DR (NexIUM) 40 mg capsule Take 40 mg by mouth daily before breakfast Unknown at Unknown time ??? flecainide (TAMBOCOR) 50 mg tablet Take 50 mg by mouth 2 (two) times a day Unknown at Unknown time ??? furosemide (LASIX) 40 mg tablet Take 40 mg by mouth daily Unknown at Unknown time ??? glimepiride (AMARYL) 1 mg tablet Take 1 mg by mouth (3) three times a day Unknown at Unknown time ??? insulin glargine (LANTUS, BASAGLAR, SEMGLEE) 100 unit/mL (3 mL) pen for injection Inject 10 Units under the skin every morning Unknown at Unknown time ??? levothyroxine (SYNTHROID) 75 mcg tablet Take 50 mcg by mouth product representative before breakfast Unknown at Unknown time ??? potassium chloride ER (KLOR-CON) 20 mEq CR tablet Take 20 mEq by mouth 4 (four) times a day Unknown at Unknown time ??? rosuvastatin (CRESTOR) 10 mg tablet Take 10 mg by mouth nightly Unknown at Unknown time ??? SITagliptin (JANUVIA) 100 mg tablet Take 100 mg by mouth daily Unknown at Unknown time ??? verapamil SR (CALAN SR) 120 mg CR tablet Take 120 mg by mouth nightly Unknown at Unknown time ??? wheat dextrin 3 gram/3.5 gram powder in packet Take by mouth Unknown at Unknown time ??? amitriptyline (ELAVIL) 25 mg tablet Take 50 mg by mouth nightly Unknown at Unknown time ??? anastrozole (ARIMIDEX) 1 mg tablet Take 1 mg by mouth daily Unknown at Unknown time ??? aspirin (ASPIRIN LOW DOSE) 81 mg tablet take 1 tablet by oral route every day 0 0 Unknown at Unknown time ??? multivitamin (ONCE DAILY) tablet tablet take 1 tablet by oral route every day with food 0 0 Unknown at Unknown time ??? spironolactone (ALDACTONE) 25 mg tablet Take 1 tablet (25 mg total) by mouth daily 30 tablet 11Unknown at Unknown time Allergies Allergen Reactions ??? Donepezil Other (See comments) Reaction: unknown reaction, , , Reaction: yeast infection, ??? Black Pepper ??? Diltiazem Edema, Diarrhea and Other (See comments) Reaction: edema, , Reaction: diarrhea, , , Reaction: ankles swell, ??? Fluticasone Other (See comments) Reaction: colon problems, ??? Metformin Diarrhea Reaction: diarrhea, , ??? Salmeterol Other (See comments) Reaction: colon problems, Social History Tobacco Use ??? Smoking status: Never Smoker ??? Smokeless tobacco: Never Used Substance Use Topics ??? Alcohol use: No Family History Problem Relation Age of Onset ??? Breast cancer Mother Cancer, breast; /Cancer -breast; ??? Heart failure Father Congestive heart failure; ??? Hypertension Brother Hypertension; ??? Hypertension Brother Hypertension; Review of Systems: Review of Systems Constitutional: Negative for activity change, chills, diaphoresis, fatigue, fever and unexpected weight change. Weakness HENT: Negative for rhinorrhea, sneezing, sore throat and trouble swallowing. Eyes: Negative for pain, redness and visual disturbance. Respiratory: Negative for cough, chest tightness, shortness of breath and wheezing. Cardiovascular: Negative for chest pain, palpitations and leg swelling. Gastrointestinal: Negative for abdominal distention, abdominal pain, blood in stool, constipation, diarrhea, nausea and vomiting. Endocrine: Negative for polydipsia and polyuria. Genitourinary: Negative for difficulty urinating, dysuria, flank pain, hematuria and urgency. Musculoskeletal: Negative for back pain and neck pain. Skin: Negative for pallor and rash. Neurological: Negative for dizziness, tremors, syncope, weakness, light- headedness and headaches. Psychiatric/Behavioral: Negative for confusion and sleep disturbance. OBJECTIVE Vitals: Arrival Vitals Temp 12/20/20 1507 36 ??C (96.8 ??F) Pulse 12/20/20 1507 84 Resp 12/20/20 1507 16 BP 12/20/20 1507 (!) 107/40 SpO2 12/20/20 1507 95 % Temp src 12/20/20 1507 Temporal Heart Rate Source -- Patient Position 12/20/201942 Lying BP Location 12/20/201942 Right arm FiO2 (%) -- 24hr Min/Max: Temp Min: 35.6 ??C (96 ??F) Max: 36.9 ??C (98.5 ??F) Pulse Min: 74 Max: 86 BP Min: 88/38 Max: 131/54 Resp Min: 14 Max: 27 SpO2 Min: 90 % Max: 100 % Most Recent : Vitals: 12/21/20 1143 BP: (!) 112/44 Pulse: 78 Resp: 20 Temp: 36.4 ??C (97.5 ??F) SpO2: 100% Intake/Output Summary (Last 24 hours) at 12/21/2020 1248 Last data filed at 12/21/2020 1043 Gross per 24 hour Intake 1181.25 ml Output 450 ml Net 731.25 ml Physical exam: Physical Exam Constitutional: Appearance: Normal appearance. She is normal weight. HENT: Head: Normocephalic and atraumatic. Nose: Nose normal. Mouth/Throat: Mouth: Mucous membranes are moist. Eyes: Extraocular Movements: Extraocular movements intact. Conjunctiva/sclera: Conjunctivae normal. Pupils: Pupils are equal, round, and reactive to light. Cardiovascular: Rate and Rhythm: Normal rate and regular rhythm. Pulses: Normal pulses. Heart sounds: Normal heart sounds. Pulmonary: Effort: Pulmonary effort is normal. Breath sounds: Normal breath sounds. Abdominal: General: Abdomen is flat. Palpations: Abdomen is soft. Musculoskeletal: General: Normal range of motion. Cervical back: Normal range of motion. Skin: General: Skin is warm. Capillary Refill: Capillary refill takes more than 3 seconds. Neurological: General: No focal deficit present. Mental Status: She is alert and oriented to person, place, and time. Mental status is at baseline. Psychiatric: Mood and Affect: Mood normal. Behavior: Behavior normal. Thought Content: Thought content normal. Judgment: Judgment normal. Lab/Radiology/Diagnostic Review: Recent Results (from the past 24 hour(s)) POCT glucose Collection Time: 12/20/20 3:15 PM Result Value Ref Range Glucose, POC 190 (H) 71 - 98 mg/dL CBC with auto differential Collection Time: 12/20/20 4:10 PM Result Value Ref Range WBC 17.1 (H) 3.8 - 9.9 K/cumm Hgb 7.6 (L) 11.9 - 15.5 g/dL Hct 25.6 (L) 35.6 - 45.5 % Plt 385 150 - 400 K/cumm MPV 10.0 9.1 - 12.3 fL RBC 3.42 (L) 3.90 - 5.20 M/cumm MCV 74.9 (L) 81.3 - 96.4 fL MCH 22.2 (L) 27.1 - 33.3 pg MCHC 29.7 (L) 32.3 - 35.7 g/dL RDW CV 17.6 (H) 11.1 - 14.9 % RDW SD 47.2 35.7 - 48.1 fL NRBC abs 0.09 (H) 0.00 - 0.01 K/cumm Comprehensive metabolic panel Collection Time: 12/20/20 4:10 PM Result Value Ref Range Sodium 131 (L) 135 - 145 mmol/L Potassium, pl 3.1 (L) 3.3 - 4.9 mmol/L Chloride 95 (L) 97 - 110 mmol/L CO2 26 22 - 32 mmol/L Anion gap 11 2 - 15 mmol/L BUN 37 (H) 8 - 25 mg/dL Creatinine 0.84 0.60 - 1.10 mg/dL Glucose 162 70 - 199 mg/dL Calcium 10.8 (H) 8.5 - 10.3 mg/dL Bilirubin, total 0.2 0.1 - 1.2 mg/dL Protein, pl 6.7 6.5 - 8.5 g/dL Albumin 4.1 3.5 - 5.0 g/dL Alk phos 85 40 - 130 Units/L ALT 18 7 - 45 Units/L AST 14 10 - 45 Units/L CRP (acute phase) Collection Time: 12/20/20 4:10 PM Result Value Ref Range CRP <3.0 <=10.0 mg/L Protime-INR Collection Time: 12/20/20 4:10 PM Result Value Ref Range PT 19.5 (H) 9.5 - 13.6 sec INR 1.8 (H) 0.9 - 1.2 Troponin T high-sensitivity series (baseline, 2hr, 4hr, 6hr) Collection Time: 12/20/20 4:10 PM Result Value Ref Range Trop T hs 21 (H) <=14 ng/L Pro B-type natriuretic peptide Collection Time: 12/20/20 4:10 PM Result Value Ref Range NT-proBNP 126 <=450 pg/mL Magnesium Collection Time: 12/20/20 4:10 PM Result Value Ref Range Magnesium 2.1 1.4 - 2.5 mg/dL Differential, auto Collection Time: 12/20/20 4:10 PM Result Value Ref Range Neutrophil abs 12.7 (H) 1.7 - 6.5 K/cumm Imm gran abs 0.3 (H) 0.0 - 0.1 K/cumm Lymphocyte abs 1.6 0.8 - 3.3 K/cumm Monocyte abs 2.3 (H) 0.2 - 0.8 K/cumm Eosinophil abs 0.2 0.0 - 0.5 K/cumm Basophil abs 0.1 0.0 - 0.1 K/cumm Neutrophil pct 74.1 % Imm gran pct 1.5 % Lymphocyte pct 9.3 % Monocyte pct 13.7 % Eosinophil pct 1.1 % Basophil pct 0.3 % Iron profile w/ IBC Collection Time: 12/20/20 4:10 PM Result Value Ref Range Iron 50 35 - 145 mcg/dL TIBC 397 250 - 400 mcg/dL Transferrin saturation 13 (L) 20 - 50 % eGFR Collection Time: 12/20/20 4:10 PM Result Value Ref Range eGFR 65 mL/min/1.73 m2 Urinalysis reflex to microscopic and culture Urine, bladder Collection Time: 12/20/20 4:27 PM Specimen: Urine, bladder Result Value Ref Range Color, ur Yellow Yellow Clarity, ur Turbid (A) Clear Specific gravity, ur 1.007 (L) 1.010 - 1.025 pH, urine 5.5 Protein, ur ql Negative Negative Glucose, ur ql 4+ (A) Negative Ketones, ur Negative Negative Bilirubin, ur Negative Negative Blood, ur Trace (A) Negative Urobilinogen, ur <2.0 <2.0 mg/dL Nitrite, ur Positive (A) Negative Leukocyte esterase, ur 4+ (A) Negative UA reflex comment Reflex to microscopic UA will be performed. Urinalysis, microscopic only Collection Time: 12/20/20 4:27 PM Result Value Ref Range WBC, ur >50 (A) 0 - 5 /HPF RBC, ur 21-50 (A) 0 - 2 /HPF Bacteria, ur 1+ (A) Mucous, ur Present (A) Culture Reflex Comment Reflex to urine culture will be performed. Sepsis Lactate w/ Reflex Collection Time: 12/20/20 4:35 PM Result Value Ref Range Sepsis Lactate 1.2 0.7 - 2.0 mmol/L Reticulocyte Count Collection Time: 12/20/20 4:35 PM Result Value Ref Range Retics, absolute 0.208 (H) 0.020 - 0.087 M/cumm Retics 6.0 (H) 0.4 - 2.9 % Reticulocyte Hgb 18.2 (L) 30.5 - 38.0 pg ABO/Rh Collection Time: 12/20/20 4:35 PM Result Value Ref Range ABO/RH. O Positive Antibody screen Collection Time: 12/20/20 4:35 PM Result Value Ref Range Devora, indirect, Gel Interpretation Negative ABSC ABO / Rh Confirmation Testing Collection Time: 12/20/20 4:35 PM Result Value Ref Range ABO/Rh Confirmation O Positive Ferritin Collection Time: 12/20/20 5:39 PM Result Value Ref Range Ferritin 48 15 - 150 ng/mL Iron profile w/ IBC Collection Time: 12/20/20 5:39 PM Result Value Ref Range Iron 75 35 - 145 mcg/dL TIBC 426 (H) 250 - 400 mcg/dL Transferrin saturation 18 (L) 20 - 50 % COVID-19 Coronavirus RNA Nasopharyngeal Collection Time: 12/20/20 5:57 PM Specimen: Nasopharyngeal Result Value Ref Range COVID-19 RNA Negative Negative First COVID-19 test? Unknown Employeed in healthcare? No status? No Group care resident? Yes Hospitalized? Yes Is patient in ICU? No Symptomatic as defined by CDC? No Crossmatch Collection Time: 12/20/20 6:20 PM Result Value Ref Range Crossmatch Compatible Unit number for crossmatch [id number] Prepare RBC: 1 Units Collection Time: 12/20/20 6:23 PM Result Value Ref Range Units requested 1 Units requested Ready Unit Number [id number] Product code [id number] Blood Expiration Date [id number] Product Blood Type (for scanning) 5100 Product Blood Type OPOS Dispense Status DISPENSED ABO / Rh Confirmation Testing Collection Time: 12/20/20 6:25 PM Result Value Ref Range ABO/Rh Confirmation O Positive CBC with auto differential Collection Time: 12/20/20 11:23 PM Result Value Ref Range WBC 13.8 (H) 3.8 - 9.9 K/cumm Hgb 8.5 (L) 11.9 - 15.5 g/dL Hct 28.3 (L) 35.6 - 45.5 % Plt 322 150 - 400 K/cumm MPV 10.2 9.1 - 12.3 fL RBC 3.60 (L) 3.90 - 5.20 M/cumm MCV 78.6 (L) 81.3 - 96.4 fL MCH 23.6 (L) 27.1 - 33.3 pg MCHC 30.0 (L) 32.3 - 35.7 g/dL RDW CV 18.0 (H) 11.1 - 14.9 % RDW SD 50.9 (H) 35.7 - 48.1 fL NRBC abs 0.10 (H) 0.00 - 0.01 K/cumm Differential, auto Collection Time: 12/20/20 11:23 PM Result Value Ref Range Neutrophil abs 9.9 (H) 1.7 - 6.5 K/cumm Imm gran abs 0.2 (H) 0.0 - 0.1 K/cumm Lymphocyte abs 1.4 0.8 - 3.3 K/cumm Monocyte abs 2.0 (H) 0.2 - 0.8 K/cumm Eosinophil abs 0.2 0.0 - 0.5 K/cumm Basophil abs 0.0 0.0 - 0.1 K/cumm Neutrophil pct 71.6 % Imm gran pct 1.2 % Lymphocyte pct 10.4 % Monocyte pct 14.8 % Eosinophil pct 1.7 % Basophil pct 0.3 % Prepare plasma: 2 Units Standard plasma Collection Time: 12/20/20 11:36 PM Result Value Ref Range Plasma # of units / Ready 2 Plasma # of units / Ready Ready Prepare plasma Collection Time: 12/21/20 1:58 AM Result Value Ref Range Unit Number [id number] Product code [id number] Blood Expiration Date [id number] Product Blood Type (for scanning) 5100 Product Blood Type OPOS Dispense Status DISPENSED POCT glucose Collection Time: 12/21/20 2:34 AM Result Value Ref Range Glucose, POC 143 (H) 71 - 98 mg/dL Prepare plasma Collection Time: 12/21/20 6:42 AM Result Value Ref Range Unit Number [id number] Product code [id number] Blood Expiration Date [id number] Product Blood Type (for scanning) 5100 Product Blood Type OPOS Dispense Status DISPENSED CBC without differential Collection Time: 12/21/20 7:38 AM Result Value Ref Range WBC 11.0 (H) 3.8 - 9.9 K/cumm Hgb 8.1 (L) 11.9 - 15.5 g/dL Hct 27.2 (L) 35.6 - 45.5 % Plt 292 150 - 400 K/cumm MPV 9.8 9.1 - 12.3 fL RBC 3.49 (L) 3.90 - 5.20 M/cumm MCV 77.9 (L) 81.3 - 96.4 fL MCH 23.2 (L) 27.1 - 33.3 pg MCHC 29.8 (L) 32.3 - 35.7 g/dL RDW CV 17.5 (H) 11.1 - 14.9 % RDW SD 49.2 (H) 35.7 - 48.1 fL NRBC abs 0.05 (H) 0.00 - 0.01 K/cumm Basic metabolic panel Collection Time: 12/21/20 7:38 AM Result Value Ref Range Sodium 136 135 - 145 mmol/L Potassium, pl 3.1 (L) 3.3 - 4.9 mmol/L Chloride 99 97 - 110 mmol/L CO2 28 22 - 32 mmol/L Anion gap 9 2 - 15 mmol/L BUN 25 8 - 25 mg/dL Creatinine 0.67 0.60 - 1.10 mg/dL Glucose 110 70 - 199 mg/dL Calcium 9.6 8.5 - 10.3 mg/dL eGFR Collection Time: 12/21/20 7:38 AM Result Value Ref Range eGFR 82 mL/min/1.73 m2 POCT glucose Collection Time: 12/21/20 8:44 AM Result Value Ref Range Glucose, POC 109 (H) 71 - 98 mg/dL Guaiac occult blood, fecal, non-neoplasm Collection Time: 12/21/20 9:38 AM Result Value Ref Range Guaiac occult blood, fecal Positive (A) Negative POCT glucose Collection Time: 12/21/20 10:13 AM Result Value Ref Range Glucose, POC 160 (H) 71 - 98 mg/dL CBC with auto differential Collection Time: 12/21/20 10:59 AM Result Value Ref Range WBC 10.1 (H) 3.8 - 9.9 K/cumm Hgb 8.0 (L) 11.9 - 15.5 g/dL Hct 26.8 (L) 35.6 - 45.5 % Plt 279 150 - 400 K/cumm MPV 9.8 9.1 - 12.3 fL RBC 3.43 (L) 3.90 - 5.20 M/cumm MCV 78.1 (L) 81.3 - 96.4 fL MCH 23.3 (L) 27.1 - 33.3 pg MCHC 29.9 (L) 32.3 - 35.7 g/dL RDW CV 17.7 (H) 11.1 - 14.9 % RDW SD 49.7 (H) 35.7 - 48.1 fL NRBC abs 0.04 (H) 0.00 - 0.01 K/cumm Differential, auto Collection Time: 12/21/20 10:59 AM Result Value Ref Range Neutrophil abs 7.0 (H) 1.7 - 6.5 K/cumm Imm gran abs 0.2 (H) 0.0 - 0.1 K/cumm Lymphocyte abs 1.1 0.8 - 3.3 K/cumm Monocyte abs 1.6 (H) 0.2 - 0.8 K/cumm Eosinophil abs 0.2 0.0 - 0.5 K/cumm Basophil abs 0.1 0.0 - 0.1 K/cumm Neutrophil pct 68.7 % Imm gran pct 1.6 % Lymphocyte pct 10.7 % Monocyte pct 16.1 % Eosinophil pct 2.4 % Basophil pct 0.5 % POCT glucose Collection Time: 12/21/20 12:33 PM Result Value Ref Range Glucose, POC 121 (H) 71 - 98 mg/dL ECG 12 lead Result Date: 12/21/2020 Narrative: Vent Rate: 77 bpm RR Interval: 771 msec [place] Interval: 192 msec QRS Duration: 112 msec QT Interval: 415 msec QTC Interval: 447 msec P-R-T [place]: 46 - -28 - 55 degrees SINUS RHYTHM BORDERLINE LEFT AXIS DEVIATION [QRS AXIS < -20] MODERATE INTRAVENTRICULAR CONDUCTION DELAY [110+ ms QRS DURATION] BORDERLINE ECG No change from prior EKG Electronically Signed By: Landon Valencia MD ECG 12 lead Result Date: 12/21/2020 Narrative: Vent Rate: 81 bpm RR Interval: 736 msec [place] Interval: 162 msec QRS Duration: 119 msec QT Interval: 326 msec QTC Interval: 363 msec P-R-T [place]: -11 - -39 - 35 degrees Probable junctional rhythm LEFT AXIS DEVIATION [QRS AXIS < - 30] PATTERN CONSISTENT WITH PULMONARY DISEASE MODERATE INTRAVENTRICULAR CONDUCTION DELAY [110+ ms QRS DURATION] NONSPECIFIC ST \T\ T-WAVE ABNORMALITY Compared to prior EKG, nonspecific ST/T changes are new and junctional rhythm has replaced sinus rhythm. Electronically Signed By: Dr Darin Corona ECG 12 lead Result Date: 11/27/2020 Narrative: Vent Rate: 83 bpm RR Interval: 719 msec [place] Interval: 206 msec QRS Duration: 134 msec QT Interval: 405 msec QTC Interval: 445 msec P-R-T [place]: 72 - -54 - 59 degrees SINUS RHYTHM INTRAVENTRICULAR CONDUCTION DELAY [130+ ms QRS DURATION] ABNORMAL ECG No change from prior EKG Electronically Signed By: Landon Valencia MD CT Abdomen Pelvis W Contrast Result Date: 12/20/2020 Narrative: EXAM DESCRIPTION: CT ABDOMEN PELVIS W CONTRAST REASON FOR STUDY: asthma, PNA, CAD, CHF, A-fib, HTN, HLD, and DM who presents to the ED via EMS and accompanied by her daughter c/o generalized weakness for approximately 3 days PSH cade hernia ike 100 ml optiray 88121 g r FA Duration: 3 days TECHNIQUE: CT scan of the abdomen and pelvis performed with intravenous and without oral contrastusing helical scanning technique with dynamic intravenous contrast injection. Reconstructed coronaland sagittal MPR images reviewed. All images stored on PACS. Automated exposure control was used asa dose optimization technique for this examination. CONTRAST TYPE/DOSE: 100 mL of Optiray 320 inject ed via right forearm COMPARISON: 11/27/2020 FINDINGS: LOWER CHEST: Coronary artery, aortic valvularand mitral calcifications. Mild cardiomegaly. LIVER: Normal size. No identified cystic or solid masses. GALLBLADDER: Surgically absent. BILE DUCTS: No intrahepatic or extrahepatic ductal dilatation. SPLEEN: Punctate calcifications throughout the spleen consistent with prior granulomatous disease. PANCREAS: No identified cystic or solid masses. No significant calcifications. No adjacent inflammation or peripancreatic fluid collections. Pancreatic duct not dilated. ADRENALS: Normal. KIDNEYS/URINARY TRACT: No identified significant cystic or solid masses. No visualized stones. No hydronephrosis or hydroureter. Symmetric enhancement. The urinary bladder is decompressed with a Schmitt catheter in place. GI: Moderate amount of formed stool throughout the colon. No dilated bowel loops. No obvious wall thickening. No significant diverticular disease. The appendix is not discretely visualized although there are no secondary signs of inflammatory change within the right lower quadrant. PERITONEUM: No ascites or free air. RETROPERITONEUM: No mass or adenopathy. REPRODUCTIVE: Uterus is surgicallyabsent. VASCULATURE: Calcified atheroma of the abdominal aorta and its branch vessels. MUSCULOSKELETAL: Levoconvex scoliotic curvature of the lumbar spine with multilevel degenerative change. OTHER: Fat containing right femoral hernia. IMPRESSION: Moderate amount of stool throughout the colon likely due to underlying constipation. Otherwise, no acute findings to explain the patient's current symptoms. THIS IS AN ELECTRONICALLY VERIFIED FINAL REPORT 12/20/2020 7:38 PM - Electronically signed by Deborah Garcia M.D. TS: SHANNON Report ID: [id number] Reading Location: [id number] CT Abdomen Pelvis W Contrast Result Date: 11/27/2020 Narrative: EXAM DESCRIPTION: CT ABDOMEN PELVIS W CONTRAST REASON FOR STUDY: Generalized abd pain, nausea, and vomiting started in the evening of 11/26. Hx of cholecystectomy, hysterectomy, left breastcancer with lumpectomy. Pt had blood clot removed in October. 100ml of Optiray 350, 20g iv lt forearmDuration: 11/26 evening TECHNIQUE: CT scan of the abdomen and pelvis performed with intravenous and without oral contrast using helical scanning technique with dynamic intravenous contrast injection. Reconstructed coronal and sagittal MPR images reviewed. All images stored on PACS. Automated exposure control was used as a dose optimization technique for this examination. CONTRAST TYPE/DOSE: 100 of op tiray 350 injected via lt forearm COMPARISON: None FINDINGS: LOWER CHEST: Lung bases clear. Heart size normal. Heavy annular calcification versus prosthesis. Effusion. LIVER/BILIARY: Liver unremarkable. Biliary tree normal in caliber. GALLBLADDER: Absent. SPLEEN: Normal. PANCREAS: Normal. ADRENAL GLANDS: Normal. KIDNEYS/URINARY TRACT: Kidneys and ureters appear normal. Bladder collapsed around Schmitt balloon. GI: Stomach and small bowel appear normal. Large amount of stool throughout the colon. No wall thickening or inflammation. Appendix not confidently distinguished from adjacent bowel. OTHER ABDOMINAL/PELVIS: Major vascular structures are grossly patent and normal in caliber. Moderate ath erosclerotic calcification. 50% stenosis of the right common iliac artery. No enlarged lymph node or free fluid. MSK: Moderate disc disease and facet arthropathy. BODY WALL: Normal. IMPRESSION: Largeamount of stool throughout the colon. No colitis or other acute abnormality identified. THIS IS AN E LECTRONICALLY VERIFIED FINAL REPORT 11/27/2020 12:42 AM - Electronically signed by Femi Fermin M.D. AR: SPARKLE Report ID: [id number] ReadingLocation: [id number] XR Chest 1 Vw Portable Result Date: 12/20/2020 Narrative: EXAM DESCRIPTION: XR CHEST 1 VIEW REASON FOR STUDY: Generalized weakness over the past 3days. Leg swelling. Nonsmoker with a h/o sleep apnea, asthma, PNA, CAD, CHF, A-fib, HTN, HLD, and DM who presents to the ED via EMS and accompanied by her daughter c/o generalized weakness for approximately 3 days. Pt's daughter reports pt taking multiple water pills daily for swelling in pt's legsthat has improved. She states pt has a caregiver that comes to the home a couple times per day. Today, daughter of pt states a home nurse came evaluate pt's previous UTI who states pt was feeling dizzy upon standing up this morning. Pt states they are thinking it may be A-fib. I couldn't walk. I could sit down and be okay, but as soon as I stand up my face would be real hot.Duration: today TECHNIQUE: Frontal radiographic view of the chest acquired. COMPARISON: 03/06/2019 and 04/07/2018 FINDINGS: LUNGS/PLEURA: Pulmonary vascularity appears normal. No infiltrate or effusion. Costophrenic angles are sharp. HEART/MEDIASTINUM: Senescent change of the aorta. Otherwise, normal cardiomediastinal silhouette. HARDWARE/LINES/TUBES: None. BONES: No acute findings. OTHER: [place] are seen of the leftlower chest similar to prior. IMPRESSION: 1. No acute findings or infiltrate. THIS IS AN ELECTRONICALLY VERIFIED FINAL REPORT 12/20/2020 4:42 PM - Electronically signed by Noah Cuba M.D. MJ: RENETTA Report ID: [id number] Reading Location:[id number] CT Chest PE (CTA) W Contrast Result Date: 11/27/2020 Narrative: EXAM DESCRIPTION: CT CHEST PE (CTA) W CONTRAST REASON FOR STUDY: Chest tightness started11/26 in the evening. Pt recently had a PE in October that pt states they went in and had to remove. Hxof left breast cancer with lumpectomy. 100ml of Optiray 350, 20g iv lt forearmDuration: 11/26 TECHNIQUE: CT angiogram of the chest performed with intravenous contrast using helical scanning technique w ith dynamic intravenous contrast injection. Reconstructed coronal and sagittal MPR images reviewed.All images stored on PACS. 3D MIP images rendered on scanning unit and reviewed at time of interpretation. Automated exposure control was used as a dose optimization technique for this examination. CONTRAST TYPE/DOSE: 100 of optiray 350 injected via lt forearm COMPARISON: None FINDINGS: VASCULATURE: No identified pulmonary emboli. LUNGS: No nodules or masses. No pneumonia. PLEURA: No effusion. Nopneumothorax. MEDIASTINUM/MICHA: Calcified right paratracheal and right hilar lymph nodes compatiblewith old healed granulomatous disease. HEART: Heart size is normal with no pericardial effusion. AXILLA: No adenopathy. CHEST WALL: Surgical clips in the left breast are seen. HARDWARE/LINES/TUBES: None. UPPER ABDOMEN: No significant abnormality. MUSCULOSKELETAL: No significant abnormality. OTHER: No significant abnormality. IMPRESSION: 1. No acute pulmonary embolus. 2. Clear lungs bilaterally. THIS IS AN ELECTRONICALLY VERIFIED FINAL REPORT 11/27/2020 12:46 AM - Electronically signed by Vivek Stout M.D. BB: DEDRA Report ID: [id number] Reading Location: [id number] Current Facility-Administered Medications Medication Dose Route Frequency Provider Last Rate Last Admin ??? acetaminophen (TYLENOL) tablet 500 mg 500 mg oral Q4H PRN Wayne Snow MD 500 mg at 12/21/20 1028 ??? amitriptyline (ELAVIL) tablet 50 mg 50 mg oral Nightly Wayne Snow MD ??? canagliflozin (INVOKANA) tablet 100 mg 100 mg oral Daily Wayne Snow MD ??? cefepime (MAXIPIME) 1,000 mg in sodium chloride 0.9% 100 mL IVPB 1,000 mg intravenous Once Wayne Snow MD Stopped at 12/21/20 0953 ??? cefepime (MAXIPIME) 1,000 mg in sodium chloride 0.9% 100 mL IVPB 1,000 mg intravenous Q12H KATHARINE Wayne Snow MD ??? cyanocobalamin (Vitamin B-12) tablet 250 mcg 250 mcg oral Daily Wayne Snow MD 250 mcg at 12/21/20 1156 ??? dorzolamide (TRUSOPT) 2 % ophthalmic solution 1 drop 1 drop each eye BID Wayne Snow MD1 drop at 12/21/20 1200 ??? flecainide (TAMBOCOR) tablet 50 mg 50 mg oral BID Wayne Snow MD 50 mg at 12/21/20 1154 ??? furosemide (LASIX) tablet 40 mg 40 mg oral Daily Wayne Snow MD 40 mg at 12/21/20 1156 ??? insulin glargine (LANTUS, BASAGLAR, SEMGLEE) 100 unit/mL (3 mL) pen injection 8 Units 8 Units subcutaneous QAM Wayne Snow MD 8 Units at 12/21/20 1205 ??? [START ON 12/22/2020] levothyroxine (SYNTHROID) tablet 50 mcg 50 mcg oral Daily - 0600 Wayne Snow MD ??? [START ON 12/22/2020] magnesium citrate oral solution 296 mL 296 mL oral Before breakfast Julio Mccabe MD ??? oxyCODONE (ROXICODONE) tablet 5 mg 5 mg oral Q4H PRN Carli Pozo MD ??? [START ON 12/22/2020] pantoprazole DR (PROTONIX) extended release tablet 40 mg 40 mg oral Daily Wayne Snow MD ??? potassium chloride ER (KLOR-CON) extended release tablet 20 mEq 20 mEq oral BID DavidW. Mccabe MD ??? sodium chloride 0.9% IVPB 0-250 mL 0-250 mL intravenous Once Julio Mccabe MD ??? spironolactone (ALDACTONE) tablet 25 mg 25 mg oral Daily Wayne Snow MD ??? verapamil SR (CALAN SR) extended release tablet 120 mg 120 mg oral Nightly Wayne Snow MD A/P 1. NC anemia -Unclear cause but iron low; with occult + f/u GI recs; no signs vaginal/urinary -Check B12; no signs renal causing it; ; no signs hemolysis -No signs RP bleed -Check counts Q8; s/p 1U, type/cross -per GI continue eliquis as no nico bleeding; holding aldactone (already on lasix) since BP mildlysoft -Monitor for signs overload (but also any bleeding) -S/p FFP by ED for INR elevation (but on eliquis) -Heme onc consult for iron deficiency anemia as iron low 2. Paroxysmal a-fib -Currently NS on tele -OK per GI eliquis; Cards to eval as well 3. History of PE -Recent treatment per daughter -On eliquis OK per GI -No dyspnea/tachycardia/hypoxia 4. UTI -Cefepime and f/u cultures 5. Type 2 DM -Continue home meds 6. CAD -OK ASA per GI 7. Chronic diastolic CHF -Compensated; lasix; holding aldactone (with mildly low BP and anemia) 8. Hypokalemia -Replace DVT prophylaxis SCDs; eliquis Code status Full Spoke to daughters Ange and Nancy over the phone; Ange will be main point of contact going forward Anticipated length of stay to be >2 mid [facility] High Principal Problem: Normocytic anemia Active Problems: Hypokalemia Urinary tract bacterial infections Paroxysmal atrial fibrillation (CMS/HCC) (HCC) History of pulmonary embolism Type 2 diabetes mellitus (HCC) Chronic diastolic (congestive) heart failure (HCC) Anxiety CAD (coronary artery disease) HTN (hypertension) Resolved Problems: No resolved hospital problems. Voice recognition software [employer]el[employer]ie Direct was used dictate and transcribe this document. [employer] Mar[employer] Installer variances may occur. Despite proofreading, typographical errors may occur. Wayne Snow MD Date of Service: 12/21/2020 documented in this encounter Procedure Notes * Neeta Patel MD - 12/27/2020 3:31 PM CDTAssociated Order(s): FLEXIBLE SIGMOIDOSCOPY [facility] Patient Name: Loc Anderson Procedure Date: 12/27/2020 3:31 PM Date of : 1940 Admit Type: Inpatient Age: 80 Gender: Female Attending MD: Neeta Patel M.D. Room: [facility] ROOM 1 Note Status: Finalized Patient Profile: This is an 80 year old female. Patient admitted with anemia and occult blood in the stool. She has chronic constipation and impaction on imaging. Sigmoidoscopy today for disimpaction and evaluation. Procedure: Flexible Sigmoidoscopy Indications: Gastrointestinal occult blood loss, Constipation, Fecal impaction Referring MD: Destiney Camargo MD Providers: Neeta Patel M.D. Impression: Large fecal impaction the rectum and sigmoid colon, digitally removed the rectal impaction Erythema in the rectum with few erosions likely explain the occult blood loss. No active bleeding No specimens collected. Recommendation: - Continue present medications. Daily regimen of Dulcolax suppository every night, Linzess daily, and milk of magnesia daily. - No further GI workup is needed - Advance diet Medicines: Monitored Anesthesia Care Complications: No immediate complications. Estimated Blood Loss: Estimated blood loss: none. Procedure: Pre-Anesthesia Assessment: - Prior to the procedure, a History and Physical was performed, and patient medications and allergies were reviewed. The patient's tolerance of previous anesthesia was also reviewed. The risks and benefits of the procedure and the sedation options and risks were discussed with the patient. All questions were answered, and informed consent was obtained. Prior Anticoagulants: The patient has taken Eliquis (apixaban), last dose was day of procedure. ASA Grade Assessment: III - A patient with severe systemic disease. After reviewing the risks and benefits, the patient was deemed in satisfactory condition to undergo the procedure. The benefits, risks, and alternatives to the procedure and sedation were discussed and informed consent was obtained. The Endoscope [id number] was introduced through the anus and advanced to the the sigmoid colon. The flexible sigmoidoscopy was accomplished without difficulty. The patient tolerated the procedure well. The quality of the bowel preparation was poor. Findings: The perianal exam was normal and digital rectal examinations showed hard stool in the rectum impacted This impaction was performed manually and large amount of large bubbles of the hard stool removed. The scope was then introduced. Remaining stool was clear. The lining mucosa noted with diffuse erythema and the few areas of erosions likely secondary to the impaction. There was impaction all the way to the distal sigmoid colon. We used water jet to evaluate as much as possible with the stool. Still remaining high impaction sigmoid colon that was difficult to reach digitally for removal. Electronically signed by Neeta Patel M.D. Neeta Patel M.D. 12/27/2020 4:14:59 PM Number of Addenda: 0 Note Initiated On: 12/27/2020 3:31 PM Procedure Code(s): --- Professional --- 95109, Sigmoidoscopy, flexible; diagnostic, including collection of specimen(s) by brushing or washing, when performed (separate procedure) Diagnosis Code(s): --- Professional --- R19.5, Other fecal abnormalities K59.00, Constipation, unspecified K56.41, Fecal impaction CPT copyright 2019 [employer]. All rights reserved. The codes documented in this report are preliminary and upon apprentice carpenter review may be revised to meet current compliance requirements. Recognized by the [employer] for promoting quality in endoscopy * Neeta Patel MD - 12/22/2020 11:16 AM CDTAssociated Order(s): EGD [facility] Patient Name: Loc Anderson Procedure Date: 12/22/2020 11:16 AM Date of : 1940 Admit Type: Inpatient Age: 80 Gender: Female Attending MD: Neeta Patel M.D. Room: [facility] ROOM 1 Note Status: Finalized Patient Profile: This is an 80 year old female. Patient admitted with urine tract infection and the significant new onset anemia. Stool occult blood testing positive. Colonoscopy 2019 was unremarkable. Procedure: Upper GI endoscopy Indications: Iron deficiency anemia, Occult blood in stool Referring MD: Destiney Camargo MD Providers: Neeta Patel M.D. Impression: - Normal examined duodenum. - Erythematous mucosa in the antrum, nonspecific finding. Biopsied for MAIA. - Multiple benign-appearing gastric polyps. Biopsied. - Z-line irregular, 40 cm from the incisors. Biopsied. Recommendation: - Await pathology results. - Use Protonix (pantoprazole) 40 mg PO daily. - No further GI workup is needed. Check folate level. Iron replacement. Medicines: Monitored Anesthesia Care Complications: No immediate complications. Estimated Blood Loss: Estimated blood loss: none. Procedure: Pre-Anesthesia Assessment: - Prior to the procedure, a History and Physical was performed, and patient medications and allergies were reviewed. The patient's tolerance of previous anesthesia was also reviewed. The risks and benefits of the procedure and the sedation options and risks were discussed with the patient. All questions were answered, and informed consent was obtained. Prior Anticoagulants: The patient has taken Eliquis (apixaban), last dose was day of procedure. ASA Grade Assessment: III - A patient with severe systemic disease. After reviewing the risks and benefits, the patient was deemed in satisfactory condition to undergo the procedure. The benefits, risks, and alternatives to the procedure and sedation were discussed and informed consent was obtained. The scope was passed under direct vision. The Endoscope GIF-H190 [id number] was introduced through the mouth, and advanced to the second part of duodenum. The upper GI endoscopy was accomplished without difficulty. The patient tolerated the procedure well. Findings: The examined duodenum was normal. Mucosal pattern was normal. No blood noted in the upper GI system. Diffuse mildly erythematous mucosa without bleeding was found in the gastric antrum. Biopsies were taken with a cold forceps for Helicobacter pylori testing using CLOtest. No ulcers and no erosions. Multiple 5 to 15 mm sessile polyps with no stigmata of recent bleeding were found in the gastric body. All the visualized polyps has benign appearance and suggestive of fundic gland polyps. These were noted the gastric body and fundus. Biopsies were taken with a cold forceps for histology. The Z-line was irregular and was found 40 cm from the incisors with short 15 mm segment of erythema on 1 side.. Biopsies were taken with a cold forceps for histology. The esophagus body was unremarkable. Electronically signed by Neeta Patel M.D. Neeta Patel M.D. 12/22/2020 11:48:06 AM Number of Addenda: 0 Note Initiated On: 12/22/2020 11:16 AM Procedure Code(s): --- Professional --- 98224, Esophagogastroduodenoscopy, flexible, transoral; with biopsy, single or multiple Diagnosis Code(s): --- Professional --- K31.89, Other diseases of stomach and duodenum K31.7, Polyp of stomach and duodenum K22.8, Other specified diseases of esophagus D50.9, Iron deficiency anemia, unspecified R19.5, Other fecal abnormalities CPT copyright 2019 [employer]. All rights reserved. The codes documented in this report are preliminary and upon apprentice carpenter review may be revised to meet current compliance requirements. Recognized by the [employer] for promoting quality in endoscopy documented in this encounter Consult Notes * Willie Aly MD - 12/25/2020 10:00 AM CDTAssociated Order(s): IP CONSULT TO INFECTIOUS DISEASES Consultation Infectious Diseases Reason for Consult: UTI Referring Physician: Gwendolyn Chief complaint: Weakness HPI: Loc Anderson is a 80 y.o. female past medical history positive for asthma, atrial fibrillation, diabetes mellitus type 2, CHF, admitted on December 21 complaining of generalized weakness for several days prior to the admission. Patient had a Schmitt catheter in place for several years which is exchanged every months. Patient denies problems urinating, no pelvic pain or hematuria. Some worsening anemia was noted in workup and GI service is on the case. Patient was empirically started on cefepime given concerns for UTI after the urinalysis was reported abnormal. Now the urine culture was reported positive for Pseudomonas aeruginosa and 2 different strains of Enterococcus faecalis, both susceptible to ampicillin. Patient overall feels good reports no new complaints no fevers. We have beenconsulted by for suggestions on management. Past Medical History: Past Medical History: Diagnosis Date ??? A-fib [...] Osteoarthritis Osteoarthritis ??? Pneumonia ??? Sleep apnea Surgical History Past Surgical History: Procedure Laterality [...] prolene mesh 01/26 ??? OTHER SURGICAL HISTORY 2012 URI/GERD: Medical Management ??? OTHER SURGICAL HISTORY ulcer removed from vocal cord ??? TOTAL ABDOMINAL HYSTERECTOMY W/ BILATERAL SALPINGOOPHORECTOMY 1980 Hysterectomy, total abdominal, BSO Social History Social History Socioeconomic History ??? Marital status: Spouse name: Not on file ??? Number of children: Not on file ??? Years of education: Not on file ??? Highest education level: Not on file Occupational History ??? Not on file Tobacco Use ??? Smoking status: Never Smoker ??? Smokeless tobacco: Never Used Substance and Sexual Activity ??? Alcohol use: No ??? Drug use: No ??? Sexual activity: Defer control/protection: Post-menopausal Other Topics Concern ??? Not on file Social History Narrative Lives at home. Social Determinants of Health Financial Resource Strain: [...] Gatherings with Friends and Family: ??? Attends Sabianist Services: ??? Active Member of Clubs or Organizations: ??? Attends Club or Organization Meetings: ??? Marital Status: Intimate Partner Violence: ??? Fear of Current or Ex-Partner: ??? Emotionally Abused: ??? Physically Abused: ??? Sexually Abused: Family Medical History Family History Problem Relation Age of Onset ??? Breast cancer Mother Cancer, breast; /Cancer -breast; ??? Heart failure Father Congestive heart failure; ??? Hypertension Brother Hypertension; ??? Hypertension Brother Hypertension; Allergies Allergies Allergen Reactions ??? Donepezil Other (See comments) Reaction: unknown reaction, , , Reaction: yeast infection, ??? Black Pepper ??? Diltiazem Edema, Diarrhea and Other (See comments) Reaction: edema, , Reaction: diarrhea, , , Reaction: ankles swell, ??? Fluticasone Other (See comments) Reaction: colon problems, ??? Metformin Diarrhea Reaction: diarrhea, , ??? Salmeterol Other (See comments) Reaction: colon problems, Medications Current Facility-Administered Medications: ??? acetaminophen (TYLENOL) tablet 500 mg, 500 mg, oral, Q4H PRN, Neeta Patel MD, 500 mg at 12/21/20 1028 ??? ALPRAZolam (XANAX) tablet 0.25 mg, 0.25 mg, oral, BID PRN, Wayne Snow MD, 0.25 mg at 12/25/20 0635 ??? amitriptyline (ELAVIL) tablet 50 mg, 50 mg, oral, Nightly, Neeta Patel MD, 50 mg at 12/24/202157 ??? amoxicillin (AMOXIL) tablet/capsule 500 mg, 500 mg, oral, TID, Willie Aly MD ??? anastrozole (ARIMIDEX) tablet 1 mg, 1 mg, oral, Daily, Neeta Patel MD, 1 mg at 12/25/2032 ??? apixaban (ELIQUIS) tablet 5 mg, 5 mg, oral, Q12H [facility], Neeta Patel MD, 5 mg at ??? bisacodyL (DULCOLAX) suppository 10 mg, 10 mg, rectal, Daily PRN, Wayne Snow MD ??? bromfenac 0.07 % drops 1 drop, 1 drop, ophthalmic, BID, Neeta Patel MD, 1 drop at 12/25/2039 ??? canagliflozin (INVOKANA) tablet 100 mg, 100 mg, oral, Before breakfast, Neeta Patel MD, 100 mg at 12/25/20 0634 ??? cefepime (MAXIPIME) 1,000 mg in sodium chloride 0.9% 100 mL IVPB, 1,000 mg, intravenous, Q12H [facility], Neeta Patel MD, Last Rate: 200 mL/hr at 12/25/20921, 1,000 mg at 12/25/20921 ??? cholecalciferol (VITAMIN D-3) tablet 1,000 Units, 1,000 Units, oral, Daily, Neeta Patel MD, 1,000 Units at 12/25/20930 ??? cyanocobalamin (Vitamin B-12) tablet 250 mcg, 250 mcg, oral, Daily, Neeta Patel MD, 250 mcg at 12/25/20930 ??? dextrose gel in packet 15 g, 15 g, oral, Q15 Min PRN OR dextrose (D10W) 10% bolus 250 mL, 250 mL, intravenous, Q15 Min PRN, Neeta Patel MD ??? docusate sodium (COLACE) capsule 100 mg, 100 mg, oral, BID PRN, Neeta Patel MD ??? dorzolamide (TRUSOPT) 2 % ophthalmic solution 1 drop, 1 drop, each eye, BID, Neeta Patel MD, 1 drop at 12/25/20 0939 ??? flecainide (TAMBOCOR) tablet 50 mg, 50 mg, oral, BID, Neeta Patel MD, 50 mg at 12/25/2032 ??? furosemide (LASIX) tablet 40 mg, 40 mg, oral, Daily, Neeta Patel MD, 40 mg at ??? glucagon injection 1 mg, 1 mg, intramuscular, Q30 Min PRN, Neeta Patel MD ??? insulin glargine (LANTUS, BASAGLAR, SEMGLEE) 100 unit/mL (3 mL) pen injection 8 Units, 8 Units,subcutaneous, QAM, Neeta Patel MD, 8 Units at 12/25/2033 ??? insulin lispro (HumaLOG, ADMELOG) 100 unit/mL pen injection 1-3 Units, 1-3 Units, subcutaneous,Nightly, Neeta Patel MD ??? insulin lispro (HumaLOG, ADMELOG) 100 unit/mL pen injection 1-5 Units, 1-5 Units, subcutaneous,TID with meals, Neeta Patel MD, 1 Units at 12/24/20 1806 ??? levothyroxine (SYNTHROID) tablet 75 mcg, 75 mcg, oral, Daily - 0600, Neeta Patel MD, 75 mcg at 12/25/20 0633 ??? linaCLOtide (LINZESS) capsule 72 mcg, 72 mcg, oral, Before breakfast, Neeta Patel MD,72 mcg at 12/25/20 0634 ??? multivit prsxvhii-czho-FZ-calcium (THERA-M) tablet 1 tablet, 1 tablet, oral, Daily, Neeta Patel MD, 1 tablet at 12/25/20931 ??? oxyCODONE (ROXICODONE) tablet 5 mg, 5 mg, oral, Q4H PRN, Neeta Patel MD, 5 mg at 12/24/200 ??? pantoprazole DR (PROTONIX) extended release tablet 40 mg, 40 mg, oral, Daily, Neeta Patel MD, 40 mg at 12/25/20930 ??? potassium chloride ER (KLOR-CON) extended release tablet 20 mEq, 20 mEq, oral, QID, Neeta Patel MD, 20 mEq at 12/25/20930 ??? rosuvastatin (CRESTOR) tablet 10 mg, 10 mg, oral, Nightly, Neeta Patel MD, 10 mg at 12/24/202157 ??? senna-docusate (PERICOLACE) 8.6-50 mg per tablet 1 tablet, 1 tablet, oral, BID PRN, Wayne Snow MD ??? sodium chloride 0.9% flush 0.5-20 mL, 0.5-20 mL, intra-catheter, Q8H KATHARINE, Neeta Patel MD, 10 mL at 12/25/20932 ??? sodium chloride 0.9% flush 0.5-20 mL, 0.5-20 mL, intra-catheter, PRN, Neeta Patel MD ??? spironolactone (ALDACTONE) tablet 25 mg, 25 mg, oral, Daily, Neeta Patel MD, 25 mg at 12/25/20931 ??? verapamil SR (CALAN SR) extended release tablet 120 mg, 120 mg, oral, Nightly, AhmadA. Patel MD, 120 mg at 12/24/202156 Review of Systems Constitutional: No fever, no weight change Eyes: No vision changes, no retroorbital pain ENT: No hearing changes, no ear pain Respiratory: No cough, no dyspnea Cardiovascular: No chest pain, no palpitations Gastrointestinal: No abdominal pain, no diarrhea Genitourinary: No dysuria, no hematuria, chronic Schmitt catheter Integumentary: No rash, no itching Extremities: No edema Neurologic: No seizures Physical Exam Vitals: 12/25/20 0755 BP: (!) 113/40 Pulse: 66 Resp: 16 Temp: 36.3 ??C (97.4 ??F) SpO2: 95% General Appearance: Alert, cooperative, no distress, appears stated age Head: Normocephalic, without obvious abnormality, atraumatic Eyes: PERRL, conjunctiva normal, Sclera Ears: Normal external ear canals, both ears Nose: Nares normal, septum midline, mucosa normal or sinus tenderness Throat: Lips, mucosa, and tongue normal; teeth and gums normal Back: Symmetric, ROM normal, no CVA tenderness Lungs: CV: Clear to auscultation bilaterally, respirations unlabored irregular rhythm, no murmurs Chest wall: No tenderness or deformity Abdomen: : Soft, non-tender, bowel sounds active , no distension no masses, no organomegaly No lumbar tenderness, Schmitt catheter in place with no hematuria Extremities: Extremities normal, no cyanosis or edema Skin: Skin color, texture, no rashes Lymph nodes: Cervical, supraclavicular, and axillary nodes normal Neurologic: Moves all extremities, non focal Imaging No results found. Labs Recent Results (from the past 24 hour(s)) POCT glucose Collection Time: 12/24/20 12:22 PM Result Value Ref Range Glucose, POC 160 (H) 71 - 98 mg/dL POCT glucose Collection Time: 12/24/20 4:36 PM Result Value Ref Range Glucose, POC 142 (H) 71 - 98 mg/dL POCT glucose Collection Time: 12/24/20 8:56 PM Result Value Ref Range Glucose, POC 160 (H) 71 - 98 mg/dL POCT glucose Collection Time: 12/25/20 3:05 AM Result Value Ref Range Glucose, POC 121 (H) 71 - 98 mg/dL CBC without differential Collection Time: 12/25/20 5:46 AM Result Value Ref Range WBC 9.6 3.8 - 9.9 K/cumm Hgb 8.9 (L) 11.9 - 15.5 g/dL Hct 32.0 (L) 35.6 - 45.5 % Plt 264 150 - 400 K/cumm MPV 10.1 9.1 - 12.3 fL RBC 3.94 3.90 - 5.20 M/cumm MCV 81.2 (L) 81.3 - 96.4 fL MCH 22.6 (L) 27.1 - 33.3 pg MCHC 27.8 (L) 32.3 - 35.7 g/dL RDW CV 20.4 (H) 11.1 - 14.9 % RDW SD 57.1 (H) 35.7 - 48.1 fL NRBC abs 0.02 (H) 0.00 - 0.01 K/cumm POCT glucose Collection Time: 12/25/20 8:10 AM Result Value Ref Range Glucose, POC 117 (H) 71 - 98 mg/dL Impression/Plan: Principal Problem: Normocytic anemia Active Problems: Hypokalemia Urinary tract bacterial infections Paroxysmal atrial fibrillation (CMS/HCC) (HCC) History of pulmonary embolism Type 2 diabetes mellitus (HCC) Chronic diastolic (congestive) heart failure (HCC) Anxiety CAD (coronary artery disease) HTN (hypertension) Occult blood in stools Hypophosphatemia Anxiety Patient is a 80-year-old female with history of diabetes mellitus type 2, CHF, hypertension, coronary artery disease, chronic indwelling Schmitt catheter in place, admitted after new onset of weakness associated with worsening anemia etiology not totally clear. EGD negative for peptic ulcers. Patienton iron replacement with improvement of hemoglobin. Since patient had a chronic Schmitt catheter in place and lack of urinary symptoms I suspect possible chronic bladder colonization rather than true UTI. At most I would suggest a short course of oral amoxicillin post discharge. Discontinue cefepime.DC home soon. Thanks for this consultation. Willie Aly MD [facility] Office [phone] Record created with voice recognition software. Occasional wrong-word or '[id number]-[id number]' substitutions may have occurred due to the inherent limitations of voice recognition software. Read the chart carefully and recognize, using context, where substitutions have occurred. * Darin Corona MD - 12/21/2020 4:15 PM CDT Images from the original note were not included. Cardiology Consultation note Admit date: 12/20/2020 Chief Complaint: Weakness/Assistance with OAC management History of Present Illness: Loc Anderson is a 80 y.o. female with a PMHx of recent saddle PE, A-fib, mild to intermediate CAD,HLD, hereditary spastic paraplegia with chronic schmitt, CATY, diastolic heart failure, breast cancer,DM type II, TIA, osteoperosis, glaucoma, neuropathy, chronic constipation,and hypothyroidism who presented to the ED with c/o generalized weakness. Patient was having dizzy spells upon standing. [facility]'s home health nurse was at the home to evaluate yesterday and called EMS. There is mention of patient even becoming unresponsive at one point. In the ED, H&H was 8.5/28.3. WBC count 13.8. UA positive. Culture pending.Sodium 131. Potassium3.1. BUN 37. Troponin T hs 21 with no further troponins drawn. proBNP normal. CXR negative for any acute findings. Patient admitted for further work-up. Patient had hospitalization in September at [facility] for large saddle PE. Patient underwent suction thromebectomy. Patient was discharged on Eliquis. Per chart review the patient's daughter confirmed that patient has been taking aspirin and Eliquis. Prior to this hospitalization patient had been taken off of her OAC for a large gluteal hematoma. It was to be evaluated further with an MRI with contrast. Past Medical History: Diagnosis Date ??? A-fib [...] prolene mesh 01/26 ??? OTHER SURGICAL HISTORY 2012 URI/GERD: Medical Management ??? OTHER SURGICAL HISTORY ulcer removed from vocal cord ??? TOTAL ABDOMINAL HYSTERECTOMY W/ BILATERAL SALPINGOOPHORECTOMY 1980 Hysterectomy, total abdominal, BSO Allergies Allergen Reactions ??? Donepezil Other (See comments) Reaction: unknown reaction, , , Reaction: yeast infection, ??? Black Pepper ??? Diltiazem Edema, Diarrhea and Other (See comments) Reaction: edema, , Reaction: diarrhea, , , Reaction: ankles swell, ??? Fluticasone Other (See comments) Reaction: colon problems, ??? Metformin Diarrhea Reaction: diarrhea, , ??? Salmeterol Other (See comments) Reaction: colon problems, Patient Vitals for the past 24 hrs: BP Temp Temp src Pulse Resp SpO2 Height Weight 12/21/20 1557 (!) 111/39 36.7 ??C (98 ??F) Temporal 82 22 92 % -- -- 12/21/20 1143 (!) 112/44 36.4 ??C (97.5 ??F) Temporal 78 20 100 % -- -- 12/21/20 1020 (!) 100/43 (!) 35.9 ??C (96.7 ??F) -- 78 20 94 % -- -- 12/21/20 0950 (!) 121/39 -- -- -- -- -- -- -- 12/21/20 0800 (!) 102/40 36.9 ??C (98.5 ??F) Temporal 79 20 96 % -- -- 12/21/20 0700 (!) 105/39 36.9 ??C (98.5 ??F) Temporal 75 20 96 % -- -- 12/21/20 0650 -- (!) 35.6 ??C (96 ??F) -- 80 20 96 % -- -- 12/21/20 0645 (!) 107/43 -- -- -- -- -- -- -- 12/21/20 0630 98/52 -- -- -- -- -- -- -- 12/21/20 0620 (!) 95/34 -- -- -- -- -- -- -- 12/21/20 0600 -- -- -- 78 -- -- -- -- 12/21/20 0520 (!) 103/42 -- -- 76 -- -- -- -- 12/21/20 0435 (!) 92/42 -- -- -- -- -- -- -- 12/21/20 0413 (!) 94/33 36.1 ??C (96.9 ??F) Temporal 76 19 -- -- -- 12/21/20 0400 -- -- -- 79 -- -- -- -- 12/21/20 0345 (!) 97/43 -- -- -- -- -- -- -- 12/21/20 0325 110/52 -- -- -- -- -- -- -- 12/21/20 0305 (!) 97/35 -- -- 75 18 -- -- -- 12/21/20 0253 (!) 99/43 36.1 ??C (97 ??F) -- 75 16 90 % -- -- 12/21/20 0238 (!) 104/40 36.7 ??C (98.1 ??F) -- 75 18 -- -- -- 12/21/20 0200 -- -- -- 74 -- -- -- -- 12/21/20 0000 (!) 111/42 36.2 ??C (97.2 ??F) Temporal 77 24 92 % 165.1 cm (5' 5 ) 77 kg (169 lb 11.2 oz) 12/20/20 2220 (!) 88/38 -- -- -- -- -- -- -- 12/20/20 2100 106/54 -- -- 79 19 97 % -- -- 12/20/20 2047 113/57 -- -- 85 16 94 % -- -- 12/20/202044 113/57 -- -- 76 18 93 % -- -- 12/20/202014 116/45 -- -- 77 18 90 % -- -- 12/20/202003 (!) 112/42 36.7 ??C (98 ??F) -- 76 19 96 % -- -- 12/20/202000 (!) 122/44 36.6 ??C (97.8 ??F) -- 80 15 96 % -- -- 12/20/201952 114/52 36.7 ??C (98.1 ??F) -- 77 19 94 % -- -- 12/20/201947 119/45 36.7 ??C (98.1 ??F) -- 78 14 95 % -- -- 12/20/20 1945 109/54 -- -- 77 18 96 % -- -- 12/20/20 1943 118/46 36.7 ??C (98 ??F) -- 77 16 95 % -- -- 12/20/20 1934 114/52 36.6 ??C (97.8 ??F) -- 78 18 95 % -- -- 12/20/20 1900 117/88 -- -- 78 15 97 % -- -- 12/20/20 1800 120/46 -- -- 80 20 95 % -- -- 12/20/20 1745 122/46 -- -- 80 19 93 % -- -- 12/20/20 1730 131/54 -- -- 80 21 96 % -- -- 12/20/20 1700 125/55 -- -- 82 21 94 % -- -- 12/20/20 1645 125/54 -- -- 82 19 95 % -- -- 12/20/20 1630 110/74 -- -- 81 15 94 % -- -- Intake/Output Summary (Last 24 hours) at 12/21/2020 1615 Last data filed at 12/21/2020 1600 Gross per 24 hour Intake 1421.25 ml Output 1575 ml Net -153.75 ml Wt Readings from Last 3 Encounters: 12/21/20 77 kg (169 lb 11.2 oz) 11/26/20 80.7 kg (178 lb) 07/31/20 79.4 kg (175 lb) Cardiac Rhythm: Normal sinus rhythm (12/21/20 0800) Physical Exam: General: Well developed, well nourished, in no acute distress, oriented to person, place, and time. Skin: Warm and dry Head: Normocephalic, oral mucosa and conjunctivae normal Neck: No thyromegaly or bruits. Carotid pulses 2+ Lungs: Clear to auscultation and percussion. Respirations unlabored Cardiac: PMI and JVP normal, S1 and S2 normal, no murmur, no gallop or rub Abd: Soft, nontender, BS active, no hepatosplenomegaly or masses, no abdominal bruit or enlarged aortic pulsation Extremities: No clubbing, cyanosis. No edema. Femoral pulses 2+. Pedal pulses 2+ Musculoskeletal: Muscle strength normal. No scoliosis. Neurologic: Oriented to person, place, and time. Mood not depressed. Review of System: Constitutional: Negative for fever, chills, malaise/fatigue, and diaphoresis. Psychiatric: Negative for depression and anxiety. Skin: Negative for rash and itching. HENT: Negative for headaches, lightheadedness, and congestion. Negative for vertigo. Eyes: Negative for blurred vision and itching. Cardiovascular: Negative for chest pain, Negative for palpitations and syncope. Respiratory: Negative for cough and sputum production. Negative for shortness of breath. Gastrointestinal: Negative for nausea, vomiting, abdominal pain and diarrhea. Musculoskeletal: Negative for muscle weakness, extremity redness or swelling. Neurological: Negative for dizziness, focal weakness, tremors, and loss of consciousness. Family History Problem Relation Age of Onset ??? Breast cancer Mother Cancer, breast; /Cancer -breast; ??? Heart failure Father Congestive heart failure; ??? Hypertension Brother Hypertension; ??? Hypertension Brother Hypertension; Social History Socioeconomic History ??? Marital status: Spouse name: None ??? Number of children: None ??? Years of education: None ??? Highest education level: None Occupational History ??? None Tobacco Use ??? Smoking status: Never Smoker ??? Smokeless tobacco: Never Used Substance and Sexual Activity ??? Alcohol use: No ??? Drug use: No ??? Sexual activity: Defer control/protection: Post-menopausal Other Topics Concern ??? None Social History Narrative Lives at home. Social Determinants of Health Financial Resource Strain: [...] Gatherings with Friends and Family: ??? Attends Sabianist Services: ??? Active Member of Clubs or Organizations: ??? Attends Club or Organization Meetings: ??? Marital Status: Intimate Partner Violence: ??? Fear of Current or Ex-Partner: ??? Emotionally Abused: ??? Physically Abused: ??? Sexually Abused: Prior to Admission medications Medication Sig Start Date End Date Taking? Authorizing Provider amitriptyline (ELAVIL) 25 mg tablet Take 50 mg by mouth nightly 03/31/19 Desiree Walker MD anastrozole (ARIMIDEX) 1 mg tablet Take 1 mg by mouth daily Desiree Walker MD aspirin (ASPIRIN LOW DOSE) 81 mg tablet take 1 tablet by oral route every day 02/16/16 Julian Payne MD multivitamin (ONCE DAILY) tablet tablet take 1 tablet by oral route every day with food 07/01/16 Elle Sadler MD polyethylene glycol (MIRALAX) 17 gram packet Take 17 g by mouth daily Desiree Walker MD spironolactone (ALDACTONE) 25 mg tablet Take 1 tablet (25 mg total) by mouth daily 04/04/20 Landon Valencia MD albuterol HFA (PROAIR HFA) 90 mcg/actuation inhaler inhale 2 puff by inhalation route every 4 - 6 hours as needed 07/01/16 12/21/20 Elle Sadler MD artificial tears (SYSTANE) 0.3 % gel Apply 1 drop to both eyes nightly as needed 12/21/20 Desiree Walker MD clopidogrel (PLAVIX) 75 mg tablet take 1 tablet by oral route every day Patient taking differently: Take 75 mg by mouth nightly 07/01/16 12/21/20 Elle Sadler MD esomeprazole DR (NexIUM) 40 mg capsule TAKE 1 CAPSULE DAILY Patient taking differently: Take 40 mg by mouth nightly 01/29/07 12/21/20 Julian Payne MD flecainide (TAMBOCOR) 50 mg tablet TAKE 1 TABLET TWICE A DAY 06/13/20 12/21/20 Landon Valencia MD FREESTYLE LITE STRIPS strip TEST BLOOD SUGARS TWICE A DAY DX E11.9.. 03/23/19 12/21/20 Desiree Walker MD furosemide (LASIX) 40 mg tablet TAKE 1 TABLET DAILY 01/10/20 12/21/20 Landon Valencia MD glimepiride (AMARYL) 1 mg tablet TAKE 1 TABLET (1 MG) BY MOUTH 3 TIMES DAILY. 04/14/19 12/21/20 Desiree Walker MD Invokana 100 mg tablet 07/21/19 12/21/20 Desiree Walker MD levothyroxine (SYNTHROID) 25 mcg tablet Take 25 mcg by mouth product representative before breakfast 12/21/20 Desiree Walker MD metOLazone (ZAROXOLYN) 2.5 mg tablet TAKE 1 TABLET (2.5 MG TOTAL) BY MOUTH 2 (TWO) TIMES A WEEK 10/30/20 12/21/20 Landon Valencia MD potassium chloride ER (KLOR-CON) 10 mEq CR tablet Take 4 tablet/capsule (40 mEq total) by mouth 2 (two) times a day 03/22/19 12/21/20 Doreen Quintero MD rosuvastatin (CRESTOR) 10 mg tablet TAKE 1 TABLET BY MOUTH 1 TIME PER DAY AT BEDTIME 03/07/09 12/21/20 Julian Payne MD SITagliptin (JANUVIA) 100 mg tablet take 1 tablet by oral route every day 07/01/16 12/21/20 Elle Sadler MD verapamil ER (VERELAN) 120 mg 24 hr capsule Take 1 capsule (120 mg total) by mouth nightly Landon Valencia MD Recent Labs Lab Units 12/21/20 1233 12/21/20 0844 12/21/20 0738 12/21/20 0234 12/20/20 1610 SODIUM mmol/L -- -- 136 -- 131* POTASSIUM PLASMA mmol/L -- -- 3.1* -- 3.1* CHLORIDE mmol/L -- -- 99 -- 95* CO2 mmol/L -- -- 28 -- 26 BUN SERUM mg/dL -- -- 25 -- 37* CREATININE mg/dL -- -- 0.67 -- 0.84 [id number] mL/min/1.73 m2 -- -- 82 -- 65 GLUCOSE mg/dL -- -- 110 -- 162 POC GLUCOSE MONITOR mg/dL 121* < > -- < > -- CALCIUM mg/dL -- -- 9.6 -- 10.8* ALBUMIN g/dL -- -- -- -- 4.1 < > = values in this interval not displayed. Recent Labs Lab Units 12/20/20 1610 ALK PHOS Units/L 85 BILIRUBIN TOTAL mg/dL 0.2 TOTAL PROTEIN g/dL 6.7 ALT Units/L 18 AST Units/L 14 Recent Labs Lab Units 12/21/20 1059 12/21/20 0738 12/20/20 2323 WBC K/cumm 10.1* 11.0* 13.8* HEMOGLOBIN g/dL 8.0* 8.1* 8.5* HEMATOCRIT % 26.8* 27.2* 28.3* PLATELETS K/cumm 279 292 322 Recent Labs Lab Units 12/20/20 1610 INR 1.8* Lab Results Component Value Date TSH 4.34 (H) 03/08/2019 FREET4 1.01 03/08/2019 Lab Results Component Value Date CHOL 112 08/18/2015 TRIG 175 (H) 08/18/2015 HDL 27 (L) 08/18/2015 Lab Results Lab Value Date/Time TROPONINT <0.01 03/06/2019 0654 TROPONINT <0.01 03/05/2019 2252 TROPONINT <0.01 10/02/2017 0010 TROPONINT <0.01 10/01/2017 1428 TROPONINT <0.01 09/30/20174 TROPONINT <0.01 02/12/2016 0337 TROPONINT <0.01 02/11/2016 2114 Results for orders placed or performed during the hospital encounter of 04/07/18 ECG 12 lead Result Value Ref Range Patient age 77 years Interpretation Text SINUS RHYTHMBORDERLINE LEFT AXIS DEVIATIONMODERATE INTRAVENTRICULAR CONDUCTION DELAYBORDERLINE ECGPREVIOUS TRACIN05/22/2013 15.20No significant changes noted Ventricular Rate EKG/Min 77 /min P Wave Duration 147 ms QRS-Interval (MSEC) 126 ms [place]-Interval (MSEC) 197 ms QT Interval 427 ms QTc 456 ms QTC Interval ms P [place] 70 deg QRS [place] -25 deg T [place] 44 deg Radiology Testing: CT Angio Chest PE: 10/01/2020 IMPRESSION Resolution of the saddle pulmonary embolism, and clot from the right pulmonary arterial system. Small volume residual clot on the left. Right heart dilatation has decreased in the interval. No new PE seen. Lungs are clear. CT Angio Chest: 09/26/2020 IMPRESSION: 1. 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 2. ??There is leftward intraventricular septal bowing which may represent right heart strain. Cardiology Testing: Troponin T hs: proBNP: Echocardiogram: 09/30/2020 Left Ventricle: ??? Left ventricle is normal in size. ? Normal global??systolic left ventricular function. ? EF range is 65 % -70 %. ? Left ventricle wall thickness is normal. ? There are no regional wall motion abnormalities. ?? NM Myocardial Perfusion: 10/13/2020 Findings: Stress portion of the exam was monitored by the cardiology service. Stress achieved via Lexiscan 0.4 mg. There are no stress induced or fixed perfusion defects. EF = 75%. EDV= 68 cc. There are no wall motion abnormalities. Stress Test Lexiscan: 10/13/2020 Overall Impression: NO ISCHEMIC ECG CHANGES NOTED NUCLEAR IMAGES PENDING 30 Day Transportation Engineering Technician: 03/22/2016 IMPRESSION: THUS, THIS IS A BENIGN APPEARING 30 DAY CARDIAC MONITORING WITH NO SIGNIFICANT FINDINGS DURING PATIENT'S ONLY COMPLAINT. NO OTHER FINDINGS OF ANY SIGNIFICANCE. Interpreting Physician: DR DARIN CORONA M.D. Cardiac cath: 09/06/2010 IMPRESSION: 1. Angiographically intermediate coronary artery disease. 2. Normal left ventricular systolic function. 3. Normal left ventricular diastolic pressure. 4. Physiologic lesion assessment of the left anterior descending showinghemodynamically insignificant stenosis. 5. Successful vascular access closure. CARE PLAN: Given results of angiography and lesion assessment, nointervention is warranted. The patient is cleared for surgery. Interpreting Physician: DR LANDON VALENCIA M.D. Impression: 1. Weakness and dizziness upon standing up likely due to hypovolemia and low hemoglobin count. Apparently not orthostatic, but patient by that time has received 1 L of fluid. 2. Hypokalemia at 3.1. 3. CAD, moderate by cardiac catheterization in 2010. Normal stress test in 2015. 4. Atrial fibrillation 1st diagnosed in 2015 in [place]. Now back on [facility]. OAC temporarily stopped because of large gluteal bleed in August 2020. Patient then developed a large PE needing suction thrombectomy in October 2020. . Plan: 1. Replace potassium to over 4. 2. Transfuse with packed RBCs to get hemoglobin closer to 10 g. 3. Follow-up with Dr. Valencia in 4 to 6 weeks and p.r.n.. Previously scheduled next appointment was July 2021. CC: Destiney Camargo MD Schprechman, Jared, MD * Loreta Randhawa, PESTICIDE USE MEDICAL COORDINATOR - 12/21/2020 3:18 PM CDTAssociated Order(s): IP CONSULT TO HEMATOLOGY ONCOLOGY Images from the original note were not included. Hematology Oncology Hospital Consult Reason for Consult: Iron deficiency Anemia SUBJECTIVE Patient is a 80 y.o. female with chief compliant of generalized weakness and dizziness. HPI: Loc Anderson is a 80 y.o. female being seen in consult today for iron deficiency anemia. She has PMHx of A-Fib, CAD, DM, Glaucoma, anemia, HTN, HL, GERD, A-Fib, pulmonary embolism on Eliquis who presented to the ED on 12/20/2020 with complaints of generalized weakness and dizziness. In ED, CBC noted WBC 17.1, hemoglobin 7.6, and normal platelet count. CT AP w/contrast noted moderate amount of stool through out colon without acute findings. In review of outside records, 02/17/2019 colonoscopy had two 2 to 3 mm polyps in descending colon an in transverse colon. She reports dizziness. She denies abdominal pain, nausea, vomiting, recent bright red blood and dark tarry stools. She is currently receiving her 1st dose of iron infusion. Past Medical History: Diagnosis Date ??? A-fib [...] prolene mesh 01/26 ??? OTHER SURGICAL HISTORY 2012 URI/GERD: Medical Management ??? OTHER SURGICAL HISTORY ulcer removed from vocal cord ??? TOTAL ABDOMINAL HYSTERECTOMY W/ BILATERAL SALPINGOOPHORECTOMY 1980 Hysterectomy, total abdominal, BSO Medications Prior to Admission Medication Sig Dispense Refill Last Dose ??? apixaban (ELIQUIS) 5 mg tablet 5 mg Unknown at Unknown time ??? bromfenac 0.07 % drops Administer 1 drop into affected eye(s) 2 (two) times a day Unknown at Unknown time ??? canagliflozin (INVOKANA) 100 mg tablet 100 mg daily Unknown at Unknown time ??? cholecalciferol (cholecalciferol) 25 mcg (1,000 unit) tablet Take 1,000 Units by mouth daily Unknown at Unknown time ??? cyanocobalamin (Vitamin B-12) 100 mcg tablet Take 100 mcg by mouth daily Unknown at Unknown time ??? dorzolamide (TRUSOPT) 2 % ophthalmic solution Administer 1 drop into both eyes 2 (two) times a day Unknown at Unknown time ??? esomeprazole DR (NexIUM) 40 mg capsule Take 40 mg by mouth daily before breakfast Unknown at Unknown time ??? flecainide (TAMBOCOR) 50 mg tablet Take 50 mg by mouth 2 (two) times a day Unknown at Unknown time ??? furosemide (LASIX) 40 mg tablet Take 40 mg by mouth daily Unknown at Unknown time ??? glimepiride (AMARYL) 1 mg tablet Take 1 mg by mouth (3) three times a day Unknown at Unknown time ??? insulin glargine (LANTUS, BASAGLAR, SEMGLEE) 100 unit/mL (3 mL) pen for injection Inject 10 Units under the skin every morning Unknown at Unknown time ??? levothyroxine (SYNTHROID) 75 mcg tablet Take 50 mcg by mouth product representative before breakfast Unknown at Unknown time ??? potassium chloride ER (KLOR-CON) 20 mEq CR tablet Take 20 mEq by mouth 4 (four) times a day Unknown at Unknown time ??? rosuvastatin (CRESTOR) 10 mg tablet Take 10 mg by mouth nightly Unknown at Unknown time ??? SITagliptin (JANUVIA) 100 mg tablet Take 100 mg by mouth daily Unknown at Unknown time ??? verapamil SR (CALAN SR) 120 mg CR tablet Take 120 mg by mouth nightly Unknown at Unknown time ??? wheat dextrin 3 gram/3.5 gram powder in packet Take by mouth Unknown at Unknown time ??? amitriptyline (ELAVIL) 25 mg tablet Take 50 mg by mouth nightly Unknown at Unknown time ??? anastrozole (ARIMIDEX) 1 mg tablet Take 1 mg by mouth daily Unknown at Unknown time ??? aspirin (ASPIRIN LOW DOSE) 81 mg tablet take 1 tablet by oral route every day 0 0 Unknown at Unknown time ??? multivitamin (ONCE DAILY) tablet tablet take 1 tablet by oral route every day with food 0 0 Unknown at Unknown time ??? spironolactone (ALDACTONE) 25 mg tablet Take 1 tablet (25 mg total) by mouth daily 30 tablet 11Unknown at Unknown time Current Facility-Administered Medications Medication Dose Route Frequency Provider Last Rate Last Admin ??? acetaminophen (TYLENOL) tablet 500 mg 500 mg oral Q4H PRN Wayne Snow MD 500 mg at 12/21/20 1028 ??? amitriptyline (ELAVIL) tablet 50 mg 50 mg oral Nightly Wayne Snow MD ??? anastrozole (ARIMIDEX) tablet 1 mg 1 mg oral Daily Wayne Snow MD 1 mg at 12/21/20 1413 ??? apixaban (ELIQUIS) tablet 5 mg 5 mg oral Q12H [facility] aWyne Snow MD 5 mg at 12/21/20 1409 ??? aspirin chewable tablet 81 mg 81 mg oral Daily aWyne Snow MD 81 mg at 12/21/20 1411 ??? canagliflozin (INVOKANA) tablet 100 mg 100 mg oral Daily Wayne Snow MD ??? cefepime (MAXIPIME) 1,000 mg in sodium chloride 0.9% 100 mL IVPB 1,000 mg intravenous Once Wayne Snow MD Stopped at 12/21/20 0953 ??? cefepime (MAXIPIME) 1,000 mg in sodium chloride 0.9% 100 mL IVPB 1,000 mg intravenous Q12H [facility] Wayne Snow MD ??? cholecalciferol (VITAMIN D-3) tablet 1,000 Units 1,000 Units oral Daily Wayne Snow MD 1,000 Units at 12/21/20 1409 ??? cyanocobalamin (Vitamin B-12) tablet 250 mcg 250 mcg oral Daily Wayne Snow MD 250 mcgat 12/21/20 1156 ??? dorzolamide (TRUSOPT) 2 % ophthalmic solution 1 drop 1 drop each eye BID Wayne Snow MD1 drop at 12/21/20 1200 ??? ferric gluconate (FERRLECIT) 125 mg of elemental iron in sodium chloride 0.9% 100 mL IVPB 125 mg of elemental iron intravenous Once Neeta Patel MD 110 mL/hr at 12/21/20 1420 125 mg of elemental iron at 12/21/20 1420 ??? flecainide (TAMBOCOR) tablet 50 mg 50 mg oral BID Wayne Snow MD 50 mg at 12/21/20 1154 ??? furosemide (LASIX) tablet 40 mg 40 mg oral Daily Wayne Snow MD 40 mg at 12/21/20 1156 ??? insulin glargine (LANTUS, BASAGLAR, SEMGLEE) 100 unit/mL (3 mL) pen injection 8 Units 8 Units subcutaneous QAM Wayne Snow MD 8 Units at 12/21/20 1205 ??? [START ON 12/22/2020] levothyroxine (SYNTHROID) tablet 50 mcg 50 mcg oral Daily - 0600 Wayne Snow MD ??? linaCLOtide (LINZESS) capsule 72 mcg 72 mcg oral Before breakfast Neeta Patel MD ??? [START ON 12/22/2020] magnesium citrate oral solution 296 mL 296 mL oral Before breakfast Julio Mccabe MD ??? multivit dftenjws-bqza-QM-calcium (THERA-M) tablet 1 tablet 1 tablet oral Daily Wayne Snow MD 1 tablet at 12/21/20 1409 ??? oxyCODONE (ROXICODONE) tablet 5 mg 5 mg oral Q4H PRN Carli Pozo MD ??? [START ON 12/22/2020] pantoprazole DR (PROTONIX) extended release tablet 40 mg 40 mg oral Daily Wayne Snow MD ??? potassium chloride ER (KLOR-CON) extended release tablet 20 mEq 20 mEq oral BID DavidW. Mccabe MD ??? rosuvastatin (CRESTOR) tablet 10 mg 10 mg oral Nightly Wayne Snow MD 10 mg at 409 ??? sodium chloride 0.9% IVPB 0-250 mL 0-250 mL intravenous Once Julio Mccabe MD ??? spironolactone (ALDACTONE) tablet 25 mg 25 mg oral Daily Wayne Snow MD ??? verapamil SR (CALAN SR) extended release tablet 120 mg 120 mg oral Nightly Wayne Snow MD Allergies Allergen Reactions ??? Donepezil Other (See comments) Reaction: unknown reaction, , , Reaction: yeast infection, ??? Black Pepper ??? Diltiazem Edema, Diarrhea and Other (See comments) Reaction: edema, , Reaction: diarrhea, , , Reaction: ankles swell, ??? Fluticasone Other (See comments) Reaction: colon problems, ??? Metformin Diarrhea Reaction: diarrhea, , ??? Salmeterol Other (See comments) Reaction: colon problems, Social History Socioeconomic History ??? Marital status: Spouse name: Not on file ??? Number of children: Not on file ??? Years of education: Not on file ??? Highest education level: Not on file Occupational History ??? Not on file Tobacco Use ??? Smoking status: Never Smoker ??? Smokeless tobacco: Never Used Substance and Sexual Activity ??? Alcohol use: No ??? Drug use: No ??? Sexual activity: Defer control/protection: Post-menopausal Other Topics Concern ??? Not on file Social History Narrative Lives at home. Social Determinants of Health Financial Resource Strain: [...] Gatherings with Friends and Family: ??? Attends Sabianist Services: ??? Active Member of Clubs or Organizations: ??? Attends Club or Organization Meetings: ??? Marital Status: Intimate Partner Violence: ??? Fear of Current or Ex-Partner: ??? Emotionally Abused: ??? Physically Abused: ??? Sexually Abused: Family History Problem Relation Age of Onset ??? Breast cancer Mother Cancer, breast; /Cancer -breast; ??? Heart failure Father Congestive heart failure; ??? Hypertension Brother Hypertension; ??? Hypertension Brother Hypertension; Review of Systems Constitutional: Positive for fatigue. HENT: Negative. Respiratory: Negative. Cardiovascular: Negative. Gastrointestinal: Positive for constipation. Negative for abdominal pain, anal bleeding, blood in stool, diarrhea, nausea and vomiting. Musculoskeletal: Negative. Skin: Negative. Neurological: Positive for dizziness. Psychiatric/Behavioral: Negative. OBJECTIVE Vitals: 24hr Min/Max: Temp Min: 35.6 ??C (96 ??F) Max: 36.9 ??C (98.5 ??F) Pulse Min: 74 Max: 86 BP Min: 88/38 Max: 131/54 Resp Min: 14 Max: 27 SpO2 Min: 90 % Max: 100 % Most Recent : Vitals: 12/21/20 1143 BP: (!) 112/44 Pulse: 78 Resp: 20 Temp: 36.4 ??C (97.5 ??F) SpO2: 100% Physical Exam Constitutional: General: She is not in acute distress. Appearance: Normal appearance. HENT: Head: Normocephalic. Nose: Nose normal. Eyes: Pupils: Pupils are equal, round, and reactive to light. Cardiovascular: Heart sounds: Normal heart sounds. Pulmonary: Breath sounds: Normal breath sounds. Abdominal: Palpations: Abdomen is soft. Musculoskeletal: Cervical back: Normal range of motion. Skin: General: Skin is warm and dry. Neurological: Mental Status: She is alert and oriented to person, place, and time. Psychiatric: Mood and Affect: Mood normal. Behavior: Behavior normal. Lab/Radiology/Diagnostic Review: Hematology Lab History Some values may be hidden. Unless noted otherwise, only the newest values recorded on each date aredisplayed. Labs - Hematology Latest Ref Range 01/17/20 11/26/20 12/20/20 12/21/20 WBC 3.8 - 9.9 K/cumm 9.7 29.6 (A) 13.8 (A) 10.1 (A) Total Hb, POC 11.9 - 15.5 g/dL 15.2 12.7 8.5 (A) 8.0 (A) Hct 35.6 - 45.5 % 46.6 (A) 41.8 28.3 (A) 26.8 (A) Plt 150 - 400 K/cumm 294 465 (A) 322 279 Neutrophil abs 1.7 - 6.5 K/cumm 6.7 (A) 23.8 (A) 9.9 (A) 7.0 (A) Lymphocytes, abs 0.8 - 3.3 K/cumm 1.4 1.6 1.4 1.1 Some values recorded on this date have been omitted. Some abnormal values recorded on this date have been omitted. (A) Abnormal value Chem/LFT Lab History Some values may be hidden. Unless noted otherwise, only the newest values recorded on each date aredisplayed. Labs-Chem/LFT Latest Ref Range 01/17/20 11/26/20 12/20/20 12/21/20 Sodium 135 - 145 mmol/L 138 137 131 (A) 136 Creatinine 0.60 - 1.10 mg/dL 1.12 (A) 0.88 0.84 0.67 Bilirubin, total 0.1 - 1.2 mg/dL 0.3 <0.2 0.2 AST 10 - 45 Units/L 25 19 14 ALT 7 - 45 Units/L 27 22 18 CrCl- Actual Body Weight (Cockcroft-Gault) 50.8 63.9 62.1 78.7 (A) Abnormal value Comments are available for some flowsheets but are not being displayed. ASSESSMENT/PLAN Iron deficiency anemia: most likely secondary to blood loss. Least likely hemolysis or bone marrow problem given increased retic count and normal bilirubin. -WBC 10.1, hemoglobin 8.0 up from 7.6, platelets 279 K. MCV 78.1. -Has low ferritin and trans saturation with high TIBC noting LETA. -Has positive guaiac. -GI consulted recommend conservative management given patient's multiple comordities. Receiving IV iron transfusion. Blood thinner continued. -Recommend trending hemoglobin. If declines then would reconsult GI for colonoscopy and EGD. Loreta Randhawa, PAULINA Medical Oncology [facility] There may be grammatical errors in this note due to use of voice recognition software. Cosigned by Jann Pak MD at 12/21/2020 4:11 PM CDT * Neeta Patel MD - 12/21/2020 12:47 PM CDT Gastroenterology Consult Reason for consult: probable occult gi bleeding, decubiti, recent massive PE at [facility], in September large buttock bleed, Date of Consult: 12/21/2020 Consultation was requested by Dr.Jared Snow for anemia SUBJECTIVE Patient is a 80 y.o. female with complaint of severe anemia. Patient presented emergency room with complaints of generalized weakness for about 3 days. Patient has multiple comorbid conditions most significant his recent pulmonary embolism and recent the spontaneous hematoma on the gluteus muscle. During this admission patient was having dizziness and weakness and poor appetite. The family reported that the she may have passed out at home. As I see the patient today she is fully awake and oriented. Noted yesterday her hemoglobin level 7.6 compared to 12 few months ago. No overt GI blood loss noted. The patient has no nausea. No vomiting. No abdominal pain. No blood in the stool noted by the patient or her family. The the daughter is very caring for the patient and she is her primary caregiver. No blood in the stool noted. The the patient has the constipation for a long time. He have seen lab rep at [facility] before. She did have colonoscopy in 2019 and the report was reviewed. Two small mucosal polyps were removed. CT of the pelvis yesterday in the ER showed diffuse constipation. Patient has issues with irregular bowel movement for a long time and the as noted above she manages with her lab rep at [facility]. There is no history of weight loss or dysphagia. Also noted stool occult blood testing was positive. Past Medical History: Diagnosis Date ??? A-fib [...] BREAST SURGERY left breast lumpectomy ??? CHOLECYSTECTOMY 1997 Cholecystectomy ??? HERNIA REPAIR ??? HYSTERECTOMY 1986 Hysterectomy ??? OTHER SURGICAL HISTORY Ulcer removal from vocal cord ??? OTHER SURGICAL HISTORY Fx nose surgery ??? OTHER SURGICAL HISTORY 2003 Right Arthroscopy knee ??? OTHER SURGICAL HISTORY 2009 Ventral hernia repair with prolene mesh 01/26 ??? OTHER SURGICAL HISTORY 2012 URI/GERD: Medical Management ??? OTHER SURGICAL HISTORY ulcer removed from vocal cord ??? TOTAL ABDOMINAL HYSTERECTOMY W/ BILATERAL SALPINGOOPHORECTOMY 1980 Hysterectomy, total abdominal, BSO Medications Prior to Admission Medication Sig Dispense Refill Last Dose ??? apixaban (ELIQUIS) 5 mg tablet 5 mg Unknown at Unknown time ??? bromfenac 0.07 % drops Administer 1 drop into affected eye(s) 2 (two) times a day Unknown at Unknown time ??? canagliflozin (INVOKANA) 100 mg tablet 100 mg daily Unknown at Unknown time ??? cholecalciferol (cholecalciferol) 25 mcg (1,000 unit) tablet Take 1,000 Units by mouth daily Unknown at Unknown time ??? cyanocobalamin (Vitamin B-12) 100 mcg tablet Take 100 mcg by mouth daily Unknown at Unknown time ??? dorzolamide (TRUSOPT) 2 % ophthalmic solution Administer 1 drop into both eyes 2 (two) times a day Unknown at Unknown time ??? esomeprazole DR (NexIUM) 40 mg capsule Take 40 mg by mouth daily before breakfast Unknown at Unknown time ??? flecainide (TAMBOCOR) 50 mg tablet Take 50 mg by mouth 2 (two) times a day Unknown at Unknown time ??? furosemide (LASIX) 40 mg tablet Take 40 mg by mouth daily Unknown at Unknown time ??? glimepiride (AMARYL) 1 mg tablet Take 1 mg by mouth (3) three times a day Unknown at Unknown time ??? insulin glargine (LANTUS, BASAGLAR, SEMGLEE) 100 unit/mL (3 mL) pen for injection Inject 10 Units under the skin every morning Unknown at Unknown time ??? levothyroxine (SYNTHROID) 75 mcg tablet Take 50 mcg by mouth product representative before breakfast Unknown at Unknown time ??? potassium chloride ER (KLOR-CON) 20 mEq CR tablet Take 20 mEq by mouth 4 (four) times a day Unknown at Unknown time ??? rosuvastatin (CRESTOR) 10 mg tablet Take 10 mg by mouth nightly Unknown at Unknown time ??? SITagliptin (JANUVIA) 100 mg tablet Take 100 mg by mouth daily Unknown at Unknown time ??? verapamil SR (CALAN SR) 120 mg CR tablet Take 120 mg by mouth nightly Unknown at Unknown time ??? wheat dextrin 3 gram/3.5 gram powder in packet Take by mouth Unknown at Unknown time ??? amitriptyline (ELAVIL) 25 mg tablet Take 50 mg by mouth nightly Unknown at Unknown time ??? anastrozole (ARIMIDEX) 1 mg tablet Take 1 mg by mouth daily Unknown at Unknown time ??? aspirin (ASPIRIN LOW DOSE) 81 mg tablet take 1 tablet by oral route every day 0 0 Unknown at Unknown time ??? multivitamin (ONCE DAILY) tablet tablet take 1 tablet by oral route every day with food 0 0 Unknown at Unknown time ??? spironolactone (ALDACTONE) 25 mg tablet Take 1 tablet (25 mg total) by mouth daily 30 tablet 11Unknown at Unknown time Allergies Allergen Reactions ??? Donepezil Other (See comments) Reaction: unknown reaction, , , Reaction: yeast infection, ??? Black Pepper ??? Diltiazem Edema, Diarrhea and Other (See comments) Reaction: edema, , Reaction: diarrhea, , , Reaction: ankles swell, ??? Fluticasone Other (See comments) Reaction: colon problems, ??? Metformin Diarrhea Reaction: diarrhea, , ??? Salmeterol Other (See comments) Reaction: colon problems, Social History Tobacco Use ??? Smoking status: Never Smoker ??? Smokeless tobacco: Never Used Substance Use Topics ??? Alcohol use: No Family History Problem Relation Age of Onset ??? Breast cancer Mother Cancer, breast; /Cancer -breast; ??? Heart failure Father Congestive heart failure; ??? Hypertension Brother Hypertension; ??? Hypertension Brother Hypertension; Review of Systems Constitutional: Positive for appetite change and fatigue. Negative for unexpected weight change. HENT: Negative. Eyes: Negative. Respiratory: Negative. Cardiovascular: Negative. Gastrointestinal: Negative. Endocrine: Negative. Genitourinary: Negative. Musculoskeletal: Positive for arthralgias and gait problem. Skin: Negative. Neurological: Positive for dizziness. Psychiatric/Behavioral: Negative. Vitals: BP (!) 112/44 (BP Location: Right arm, Patient Position: Lying;HOB 30 degrees) Pulse 78 Temp 36.4 ??C (97.5 ??F) (Temporal) Resp 20 Ht 165.1 cm (5' 5 ) Wt 77 kg (169 lb 11.2 oz) SpO2 100% BMI 28.24 kg/m?? OBJECTIVE Physical Exam: Patient is alert and oriented to time and place and self. Patient appears comfortable. Eyes: no jaundice. Lymphatics: no submandibular and no subclavicular lymphadenopathy. Lungs: CTA anteriorly. ENT: no mouth ulcers. GI: abdomen is soft, no distention, no tenderness, bowel sounds positive. Musculos keletal: no joint swelling, no edema. Skin: no rash. Lab/Radiology/Diagnostic Review: Labs and X rays reviewed. Recent Results (from the past 48 hour(s)) POCT glucose Collection Time: 12/20/20 3:15 PM Result Value Ref Range Glucose, POC 190 (H) 71 - 98 mg/dL CBC with auto differential Collection Time: 12/20/20 4:10 PM Result Value Ref Range WBC 17.1 (H) 3.8 - 9.9 K/cumm Hgb 7.6 (L) 11.9 - 15.5 g/dL Hct 25.6 (L) 35.6 - 45.5 % Plt 385 150 - 400 K/cumm MPV 10.0 9.1 - 12.3 fL RBC 3.42 (L) 3.90 - 5.20 M/cumm MCV 74.9 (L) 81.3 - 96.4 fL MCH 22.2 (L) 27.1 - 33.3 pg MCHC 29.7 (L) 32.3 - 35.7 g/dL RDW CV 17.6 (H) 11.1 - 14.9 % RDW SD 47.2 35.7 - 48.1 fL NRBC abs 0.09 (H) 0.00 - 0.01 K/cumm Comprehensive metabolic panel Collection Time: 12/20/20 4:10 PM Result Value Ref Range Sodium 131 (L) 135 - 145 mmol/L Potassium, pl 3.1 (L) 3.3 - 4.9 mmol/L Chloride 95 (L) 97 - 110 mmol/L CO2 26 22 - 32 mmol/L Anion gap 11 2 - 15 mmol/L BUN 37 (H) 8 - 25 mg/dL Creatinine 0.84 0.60 - 1.10 mg/dL Glucose 162 70 - 199 mg/dL Calcium 10.8 (H) 8.5 - 10.3 mg/dL Bilirubin, total 0.2 0.1 - 1.2 mg/dL Protein, pl 6.7 6.5 - 8.5 g/dL Albumin 4.1 3.5 - 5.0 g/dL Alk phos 85 40 - 130 Units/L ALT 18 7 - 45 Units/L AST 14 10 - 45 Units/L CRP (acute phase) Collection Time: 12/20/20 4:10 PM Result Value Ref Range CRP <3.0 <=10.0 mg/L Protime-INR Collection Time: 12/20/20 4:10 PM Result Value Ref Range PT 19.5 (H) 9.5 - 13.6 sec INR 1.8 (H) 0.9 - 1.2 Troponin T high-sensitivity series (baseline, 2hr, 4hr, 6hr) Collection Time: 12/20/20 4:10 PM Result Value Ref Range Trop T hs 21 (H) <=14 ng/L Pro B-type natriuretic peptide Collection Time: 12/20/20 4:10 PM Result Value Ref Range NT-proBNP 126 <=450 pg/mL Magnesium Collection Time: 12/20/20 4:10 PM Result Value Ref Range Magnesium 2.1 1.4 - 2.5 mg/dL Differential, auto Collection Time: 12/20/20 4:10 PM Result Value Ref Range Neutrophil abs 12.7 (H) 1.7 - 6.5 K/cumm Imm gran abs 0.3 (H) 0.0 - 0.1 K/cumm Lymphocyte abs 1.6 0.8 - 3.3 K/cumm Monocyte abs 2.3 (H) 0.2 - 0.8 K/cumm Eosinophil abs 0.2 0.0 - 0.5 K/cumm Basophil abs 0.1 0.0 - 0.1 K/cumm Neutrophil pct 74.1 % Imm gran pct 1.5 % Lymphocyte pct 9.3 % Monocyte pct 13.7 % Eosinophil pct 1.1 % Basophil pct 0.3 % Iron profile w/ IBC Collection Time: 12/20/20 4:10 PM Result Value Ref Range Iron 50 35 - 145 mcg/dL TIBC 397 250 - 400 mcg/dL Transferrin saturation 13 (L) 20 - 50 % eGFR Collection Time: 12/20/20 4:10 PM Result Value Ref Range eGFR 65 mL/min/1.73 m2 Urinalysis reflex to microscopic and culture Urine, bladder Collection Time: 12/20/20 4:27 PM Specimen: Urine, bladder Result Value Ref Range Color, ur Yellow Yellow Clarity, ur Turbid (A) Clear Specific gravity, ur 1.007 (L) 1.010 - 1.025 pH, urine 5.5 Protein, ur ql Negative Negative Glucose, ur ql 4+ (A) Negative Ketones, ur Negative Negative Bilirubin, ur Negative Negative Blood, ur Trace (A) Negative Urobilinogen, ur <2.0 <2.0 mg/dL Nitrite, ur Positive (A) Negative Leukocyte esterase, ur 4+ (A) Negative UA reflex comment Reflex to microscopic UA will be performed. Urinalysis, microscopic only Collection Time: 12/20/20 4:27 PM Result Value Ref Range WBC, ur >50 (A) 0 - 5 /HPF RBC, ur 21-50 (A) 0 - 2 /HPF Bacteria, ur 1+ (A) Mucous, ur Present (A) Culture Reflex Comment Reflex to urine culture will be performed. Sepsis Lactate w/ Reflex Collection Time: 12/20/20 4:35 PM Result Value Ref Range Sepsis Lactate 1.2 0.7 - 2.0 mmol/L Reticulocyte Count Collection Time: 12/20/20 4:35 PM Result Value Ref Range Retics, absolute 0.208 (H) 0.020 - 0.087 M/cumm Retics 6.0 (H) 0.4 - 2.9 % Reticulocyte Hgb 18.2 (L) 30.5 - 38.0 pg ABO/Rh Collection Time: 12/20/20 4:35 PM Result Value Ref Range ABO/RH. O Positive Antibody screen Collection Time: 12/20/20 4:35 PM Result Value Ref Range Devora, indirect, Gel Interpretation Negative ABSC ABO / Rh Confirmation Testing Collection Time: 12/20/20 4:35 PM Result Value Ref Range ABO/Rh Confirmation O Positive Ferritin Collection Time: 12/20/20 5:39 PM Result Value Ref Range Ferritin 48 15 - 150 ng/mL Iron profile w/ IBC Collection Time: 12/20/20 5:39 PM Result Value Ref Range Iron 75 35 - 145 mcg/dL TIBC 426 (H) 250 - 400 mcg/dL Transferrin saturation 18 (L) 20 - 50 % COVID-19 Coronavirus RNA Nasopharyngeal Collection Time: 12/20/20 5:57 PM Specimen: Nasopharyngeal Result Value Ref Range COVID-19 RNA Negative Negative First COVID-19 test? Unknown Employeed in healthcare? No status? No Group care resident? Yes Hospitalized? Yes Is patient in ICU? No Symptomatic as defined by CDC? No Crossmatch Collection Time: 12/20/20 6:20 PM Result Value Ref Range Crossmatch Compatible Unit number for crossmatch [id number] Prepare RBC: 1 Units Collection Time: 12/20/20 6:23 PM Result Value Ref Range Units requested 1 Units requested Ready Unit Number [id number] Product code [id number] Blood Expiration Date [id number] Product Blood Type (for scanning) 5100 Product Blood Type OPOS Dispense Status DISPENSED ABO / Rh Confirmation Testing Collection Time: 12/20/20 6:25 PM Result Value Ref Range ABO/Rh Confirmation O Positive CBC with auto differential Collection Time: 12/20/20 11:23 PM Result Value Ref Range WBC 13.8 (H) 3.8 - 9.9 K/cumm Hgb 8.5 (L) 11.9 - 15.5 g/dL Hct 28.3 (L) 35.6 - 45.5 % Plt 322 150 - 400 K/cumm MPV 10.2 9.1 - 12.3 fL RBC 3.60 (L) 3.90 - 5.20 M/cumm MCV 78.6 (L) 81.3 - 96.4 fL MCH 23.6 (L) 27.1 - 33.3 pg MCHC 30.0 (L) 32.3 - 35.7 g/dL RDW CV 18.0 (H) 11.1 - 14.9 % RDW SD 50.9 (H) 35.7 - 48.1 fL NRBC abs 0.10 (H) 0.00 - 0.01 K/cumm Differential, auto Collection Time: 12/20/20 11:23 PM Result Value Ref Range Neutrophil abs 9.9 (H) 1.7 - 6.5 K/cumm Imm gran abs 0.2 (H) 0.0 - 0.1 K/cumm Lymphocyte abs 1.4 0.8 - 3.3 K/cumm Monocyte abs 2.0 (H) 0.2 - 0.8 K/cumm Eosinophil abs 0.2 0.0 - 0.5 K/cumm Basophil abs 0.0 0.0 - 0.1 K/cumm Neutrophil pct 71.6 % Imm gran pct 1.2 % Lymphocyte pct 10.4 % Monocyte pct 14.8 % Eosinophil pct 1.7 % Basophil pct 0.3 % Prepare plasma: 2 Units Standard plasma Collection Time: 12/20/20 11:36 PM Result Value Ref Range Plasma # of units / Ready 2 Plasma # of units / Ready Ready Prepare plasma Collection Time: 12/21/20 1:58 AM Result Value Ref Range Unit Number [id number] Product code [id number] Blood Expiration Date [id number] Product Blood Type (for scanning) 5100 Product Blood Type OPOS Dispense Status DISPENSED POCT glucose Collection Time: 12/21/20 2:34 AM Result Value Ref Range Glucose, POC 143 (H) 71 - 98 mg/dL Prepare plasma Collection Time: 12/21/20 6:42 AM Result Value Ref Range Unit Number [id number] Product code [id number] Blood Expiration Date [id number] Product Blood Type (for scanning) 5100 Product Blood Type OPOS Dispense Status DISPENSED CBC without differential Collection Time: 12/21/20 7:38 AM Result Value Ref Range WBC 11.0 (H) 3.8 - 9.9 K/cumm Hgb 8.1 (L) 11.9 - 15.5 g/dL Hct 27.2 (L) 35.6 - 45.5 % Plt 292 150 - 400 K/cumm MPV 9.8 9.1 - 12.3 fL RBC 3.49 (L) 3.90 - 5.20 M/cumm MCV 77.9 (L) 81.3 - 96.4 fL MCH 23.2 (L) 27.1 - 33.3 pg MCHC 29.8 (L) 32.3 - 35.7 g/dL RDW CV 17.5 (H) 11.1 - 14.9 % RDW SD 49.2 (H) 35.7 - 48.1 fL NRBC abs 0.05 (H) 0.00 - 0.01 K/cumm Basic metabolic panel Collection Time: 12/21/20 7:38 AM Result Value Ref Range Sodium 136 135 - 145 mmol/L Potassium, pl 3.1 (L) 3.3 - 4.9 mmol/L Chloride 99 97 - 110 mmol/L CO2 28 22 - 32 mmol/L Anion gap 9 2 - 15 mmol/L BUN 25 8 - 25 mg/dL Creatinine 0.67 0.60 - 1.10 mg/dL Glucose 110 70 - 199 mg/dL Calcium 9.6 8.5 - 10.3 mg/dL eGFR Collection Time: 12/21/20 7:38 AM Result Value Ref Range eGFR 82 mL/min/1.73 m2 POCT glucose Collection Time: 12/21/20 8:44 AM Result Value Ref Range Glucose, POC 109 (H) 71 - 98 mg/dL Guaiac occult blood, fecal, non-neoplasm Collection Time: 12/21/20 9:38 AM Result Value Ref Range Guaiac occult blood, fecal Positive (A) Negative POCT glucose Collection Time: 12/21/20 10:13 AM Result Value Ref Range Glucose, POC 160 (H) 71 - 98 mg/dL CBC with auto differential Collection Time: 12/21/20 10:59 AM Result Value Ref Range WBC 10.1 (H) 3.8 - 9.9 K/cumm Hgb 8.0 (L) 11.9 - 15.5 g/dL Hct 26.8 (L) 35.6 - 45.5 % Plt 279 150 - 400 K/cumm MPV 9.8 9.1 - 12.3 fL RBC 3.43 (L) 3.90 - 5.20 M/cumm MCV 78.1 (L) 81.3 - 96.4 fL MCH 23.3 (L) 27.1 - 33.3 pg MCHC 29.9 (L) 32.3 - 35.7 g/dL RDW CV 17.7 (H) 11.1 - 14.9 % RDW SD 49.7 (H) 35.7 - 48.1 fL NRBC abs 0.04 (H) 0.00 - 0.01 K/cumm Differential, auto Collection Time: 12/21/20 10:59 AM Result Value Ref Range Neutrophil abs 7.0 (H) 1.7 - 6.5 K/cumm Imm gran abs 0.2 (H) 0.0 - 0.1 K/cumm Lymphocyte abs 1.1 0.8 - 3.3 K/cumm Monocyte abs 1.6 (H) 0.2 - 0.8 K/cumm Eosinophil abs 0.2 0.0 - 0.5 K/cumm Basophil abs 0.1 0.0 - 0.1 K/cumm Neutrophil pct 68.7 % Imm gran pct 1.6 % Lymphocyte pct 10.7 % Monocyte pct 16.1 % Eosinophil pct 2.4 % Basophil pct 0.5 % POCT glucose Collection Time: 12/21/20 12:33 PM Result Value Ref Range Glucose, POC 121 (H) 71 - 98 mg/dL No results found. GI IMPRESSION: 1. Severe iron deficiency anemia. No overt GI bleeding. Negative colonoscopy 2 years ago. 2. Occult blood in the stool. This is likely multifactorial. She patient is on Eliquis. She has chronic constipation and both can contribute to the occult blood testing specially with rectal exam. 3. Chronic constipation. GI PLAN: 1. Address constipation and start the patient on Linzess. 2. Iron replacement intravenously during this hospitalization. 3. I think conservative approach is very reasonable for the patient since there is no sign of active GI bleeding. The patient has recent pulmonary embolism and she has multiple comorbid conditions. We can re-evaluate for endoscopy if the patient showed signs of active blood loss such as melena or hematochezia. At this time I do not think sedation endoscopy is warranted 4. Plans was discussed with the patient daughter and the patient herself and they seems to be agreewith the current plan Voice recognition software [employer] was used dictate and transcribe this document. [employer] Install[employer] variances may occur. Despite proofreading, typographical errors may occur. Neeta Patel MD documented in this encounter Nursing Notes * Teagan Galicia RN - 12/28/2020 10:11 AM CDT Trio round with Dr. Larsen. Plan of care discussed, possible discharge this afternoon pending PT evaluation and if patient is not having liquid stools. Physical therapy to evaluate to determine need for PT at home or SNF. Daughter updated on plan by Dr. Larsen via telephone. * Eva Holland RN - 12/27/2020 8:29 AM CDT Trio rounds completed with Dr. Larsen. * Alondra Felder RN - 12/24/2020 7:30 AM CDT Pt called out feeling shaky on the inside , assessment completed and normal. bp 120/68, nsr on monitor 77. fsbs 137. * Annamarie Naidu RN - 12/23/2020 5:07 AM CDT Called into patients room states she feels funny States she is not having problems breathing but feels like she is going to. Also complaints of itching to right arm and left cheek. No rash bumps or redness. Blood pressure pulse and O2 sat bp is 111/53 pulse 69 and o2 sat is 94% room air. Alert andoriented times 4. States she does not know what is going on with her.nows the day and where she is and president. 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 States same thing happened last night. * Nivia Mendiola RN - 12/22/2020 7:54 AM CDT Trio rounds with Dr Snow, see if GI/hematology wants iron/blood/procedure? Plan to DC Friday Update Amanda is talking to daughter about upper GI documented in this encounter ED Notes * Julio Mccabe MD - 12/20/2020 4:10 PM CDT Chief Complaint Patient presents with ??? Weakness - Generalized HPI HPI 12/20/2020 4:10 PM Loc Anderson is a 80 y.o. female nonsmoker with a h/o sleep apnea, asthma, PNA, CAD, CHF, A-fib, HTN, HLD, and DM who presents to the ED via EMS and accompanied by her daughter c/o generalized weakness for approximately 3 days. Pt's daughter reports pt taking multiple water pills daily for swelling in pt's legs that has improved. She states pt has a caregiver that comes to the home a couple times per day. Today, daughter of pt states a home nurse came evaluate pt's previous UTI who states pt was feeling dizzy upon standing up this morning and that pt was unresponsive at some point during this event. Pt states they are thinking it may be A-fib. I couldn't walk. I could sit down and be okay, but as soon as I stand up my face would be real hot. Pt denies any nausea, vomiting, diarrhea, chest pain, or SOB. When asked if pt was having black or bloody stools, pt's daughter stated no. Per pt's daughter pt had a large bleed in her gluteus due to a fall in August 2020. At this time pt was taken off of blood thinners. During the time in which she was not taking her blood thinners pt's daughter states a large PE developed in pt's lungs which was removed in October 2020. There are no exacerbating or alleviating factors reported at this time. No other complaints at this time. Past Medical History: Diagnosis Date ??? A-fib [...] BREAST SURGERY left breast lumpectomy ??? CHOLECYSTECTOMY 1997 Cholecystectomy ??? HERNIA REPAIR ??? HYSTERECTOMY 1986 Hysterectomy ??? OTHER SURGICAL HISTORY Ulcer removal from vocal cord ??? OTHER SURGICAL HISTORY Fx nose surgery ??? OTHER SURGICAL HISTORY 2003 Right Arthroscopy knee ??? OTHER SURGICAL HISTORY 2009 Ventral hernia repair with prolene mesh 01/26 ??? OTHER SURGICAL HISTORY 2012 URI/GERD: Medical Management ??? OTHER SURGICAL HISTORY ulcer removed from vocal cord ??? TOTAL ABDOMINAL HYSTERECTOMY W/ BILATERAL SALPINGOOPHORECTOMY 1981 Hysterectomy, total abdominal, BSO Family History Problem Relation Age of Onset ??? Breast cancer Mother Cancer, breast; /Cancer -breast; ??? Heart failure Father Congestive heart failure; ??? Hypertension Brother Hypertension; ??? Hypertension Brother Hypertension; Social History Tobacco Use ??? Smoking status: Never Smoker ??? Smokeless tobacco: Never Used Substance Use Topics ??? Alcohol use: No ??? Drug use: No Review of Systems Review of Systems Constitutional: Negative for chills and fever. + Generalized weakness HENT: Negative for ear pain and sore throat. Eyes: Negative for pain and visual disturbance. Respiratory: Negative for cough and shortness of breath. Cardiovascular: Negative for chest pain and palpitations. Gastrointestinal: Negative for abdominal pain and vomiting. Genitourinary: Negative for dysuria and hematuria. Musculoskeletal: Negative for arthralgias and back pain. Skin: Negative for color change and rash. Neurological: Positive for dizziness. Negative for seizures and syncope. All other systems reviewed and are negative. Physical Exam ED Triage Vitals Temp Pulse Resp BP SpO2 12/20/20 1507 12/20/20 1507 12/20/20 1507 12/20/20 1507 12/20/20 1507 36 ??C (96.8 ??F) 84 16 (!) 107/40 95 % Temp src Heart Rate Source Patient Position BP Location FiO2 (%) 12/20/20 1507 -- 12/20/20 1943 12/20/201942 -- Temporal Lying Right arm Physical Exam Vitals and nursing note reviewed. Constitutional: General: She is not in acute distress. Appearance: She is well-developed. Comments: Well appearing and pleasant female. Full catheter. HENT: Head: Normocephalic and atraumatic. Eyes: Conjunctiva/sclera: Conjunctivae normal. Cardiovascular: Rate and Rhythm: Normal rate and regular rhythm. Comments: Diffuse PMI with S3 and S4. Pt has 2/5 decrescendo midsystolic murmur. Pulmonary: Effort: Pulmonary effort is normal. No respiratory distress. Breath sounds: Normal breath sounds. Abdominal: General: Bowel sounds are normal. There is no distension. Palpations: Abdomen is soft. Tenderness: There is no abdominal tenderness. There is no guarding. Musculoskeletal: Cervical back: Neck supple. Comments: No swelling of the lower extremities Skin: General: Skin is warm and dry. Comments: When rolled over pt had multiple stage 1 and stage 2 decubiti on her left and right buttocks. Neurological: Mental Status: She is alert and oriented to person, place, and time. Comments: Hard of hearing with some dementia. Procedures Labs Reviewed URINALYSIS AND REFLEX TO MICROSCOPIC AND CULTURE - Abnormal Result Value Color, ur Yellow Clarity, ur Turbid (*) Specific gravity, ur 1.007 (*) pH, urine 5.5 Protein, ur ql Negative Glucose, ur ql 4+ (*) Ketones, ur Negative Bilirubin, ur Negative Blood, ur Trace (*) Urobilinogen, ur <2.0 Nitrite, ur Positive (*) Leukocyte esterase, ur 4+ (*) UA reflex comment Reflex to microscopic UA will be performed. Narrative: Urine pH is affected by diet, medications, systemic acid-base disturbances, and renal tubular function. pH may affect urinary stone formation. For example, urine pH below 6.0 may help reduce the tendency for calcium phosphate stones and pH greater than 6.0 may reduce the tendency for uric acid stone formation. Source: [facility] [employer].Last revised 05-29-2017 CBC WITH AUTO DIFFERENTIAL - Abnormal WBC 17.1 (*) Hgb 7.6 (*) Hct 25.6 (*) Plt 385 MPV 10.0 RBC 3.42 (*) MCV 74.9 (*) MCH 22.2 (*) MCHC 29.7 (*) RDW CV 17.6 (*) RDW SD 47.2 NRBC abs 0.09 (*) COMPREHENSIVE METABOLIC PANEL - Abnormal Sodium 131 (*) Potassium, pl 3.1 (*) Chloride 95 (*) CO2 26 Anion gap 11 BUN 37 (*) Creatinine 0.84 Glucose 162 Calcium 10.8 (*) Bilirubin, total 0.2 Protein, pl 6.7 Albumin 4.1 Alk phos 85 ALT 18 AST 14 PROTIME-INR - Abnormal PT 19.5 (*) INR 1.8 (*) TROPONIN T HIGH-SENSITIVITY SERIES (BASELINE, 2HR, 4HR, 6HR) - Abnormal Trop T hs 21 (*) DIFFERENTIAL AUTO - Abnormal Neutrophil abs 12.7 (*) Imm gran abs 0.3 (*) Lymphocyte abs 1.6 Monocyte abs 2.3 (*) Eosinophil abs 0.2 Basophil abs 0.1 Neutrophil pct 74.1 Imm gran pct 1.5 Lymphocyte pct 9.3 Monocyte pct 13.7 Eosinophil pct 1.1 Basophil pct 0.3 RETICULOCYTES - Abnormal Retics, absolute 0.208 (*) Retics 6.0 (*) Reticulocyte Hgb 18.2 (*) IRON PROFILE W/ IBC - Abnormal Iron 50 TIBC 397 Transferrin saturation 13 (*) URINALYSIS, MICROSCOPIC ONLY - Abnormal WBC, ur >50 (*) RBC, ur 21-50 (*) Bacteria, ur 1+ (*) Mucous, ur Present (*) Culture Reflex Comment Reflex to urine culture will be performed. IRON PROFILE W/ IBC - Abnormal Iron 75 TIBC 426 (*) Transferrin saturation 18 (*) POCT GLUCOSE DEVICE - Abnormal Glucose, POC 190 (*) COVID-19 CORONAVIRUS RNA COVID-19 RNA Negative First COVID-19 test? Unknown Employeed in healthcare? No status? No Group care resident? Yes Hospitalized? Yes Is patient in ICU? No Symptomatic as defined by CDC? No Narrative: What is the reason for testing?->Screening prior to urgent surgery, procedure, BMT, immunosuppressive therapy URINE CULTURE CRP (ACUTE PHASE) CRP <3.0 PRO B-TYPE NATRIURETIC PEPTIDE NT-proBNP 126 MAGNESIUM Magnesium 2.1 SEPSIS LACTATE WITH REFLEX Sepsis Lactate 1.2 TYPE AND SCREEN ABO/RH ABO/RH. O Positive Narrative: Has the patient had Daratumumab or Isatuximab in the past 6 months?->Unknown ANTIBODY SCREEN Devora, indirect, Gel Interpretation Negative ABSC Narrative: Has the patient had Daratumumab or Isatuximab in the past 6 months?->Unknown EGFR eGFR 65 FERRITIN Ferritin 48 B ABO / RH CONFIRMATION TESTING ABO/Rh Confirmation O Positive B ABO / RH CONFIRMATION TESTING ABO/Rh Confirmation O Positive CROSSMATCH Crossmatch Compatible Unit number for crossmatch [id number] TROPONIN T HIGH-SENSITIVITY 6-HOUR GUAIAC OCCULT BLOOD, FECAL, NON-NEOPLASM VITAMIN B12 SEPSIS LACTATE WITH REFLEX CBC WITH AUTO DIFFERENTIAL PREPARE RBC Units requested 1 Units requested Ready Unit Number [id number] Product code [id number] Blood Expiration Date Product Blood Type (for scanning) 5100 Product Blood Type OPOS Dispense Status DISPENSED PREPARE PLASMA CT Abdomen Pelvis W Contrast Final Result XR Chest 1 Vw Portable Final Result BP (!) 88/38 (BP Location: Right arm) Pulse 79 Temp 36.7 ??C (98 ??F) Resp 19 Ht 165.1 cm (5' 5 ) Wt 76.2 kg (168 lb) SpO2 97% BMI 27.96 kg/m?? [facility] ED Course as of Dec 20 2309 Time: 12/20 1716 Comment: Pt passed out on standing, is on eliquis, very borderline hbg. Need transfusion By: Julio Mccabe MD Time: 12/20 1716 Comment: Labs pre IVF By: Julio Mccabe MD Time: 12/20 1722 Comment: Discussed case with Dr. Snow, Hospitalist, who accepts patient for admission. By: Nikki Marr Time: 12/21 1731 Comment: Pt med list on daughters phone, much more complicated than in epic. By: Julio Mccabe MD Time: 12/21 1731 Comment: Reviewed pt's medications on daughter's phone. Daughter insists pt is taking Plavix, Eliquis, and ASA. By: Nikki Marr Time: 12/20 1812 Comment: Discussed medications with patient's daughter again who obtained an updated list. She states patient is taking Eliquis and ASA but not Plavix. Patient is still bleeding. By: Nikki Marr Time: 12/20 1904 Comment: No active bleeding here. Diffuse skin breakdown, rectal would be + from this. By: Julio Mccabe MD Time: 12/20 1909 Comment: Pt 2 years post breast ca dx. Declined XRT, had clean margin resection est + on aromatase RX since. By: Julio Mccabe MD Time: 12/20 2236 Comment: Updated Dr. Pozo on patient's current status. By: Nikki Marr Final diagnoses: Anemia, unspecified type Adverse effect of anticoagulant, initial encounter Constipation by delayed colonic transit Urinary tract infection associated with indwelling urethral catheter, initial encounter (HCC) Pressure injury of contiguous region involving back and buttock, stage 2, unspecified laterality (HCC) This note is prepared by Nikki Marr, acting as a scribe for Julio Mccabe MD. I electronically signed this note at 11:10 PM on 12/20/2020. I, Julio Mccabe MD, have personally performed the services described in the documentation, reviewed the documentation, as recorded by the scribe in my presence, and it accurately and completelyrecords my words and actions. Julio Mccabe MD 12/20/201825 Julio Mccabe MD 12/20/202309 * Darby Kaplan RN - 12/20/2020 3:03 PM CDT Pt brought to ER via EMS with complaints of weakness. Pt states they are thinking it may be my a-fib. I couldn't walk. I could sit down and be ok, but as soon as I stand up my face would be real hot . Pt states that she has had symptoms x 3 days. Pt has not contacted PCP, but states I had a home nurse that was there, she might have called him. She was the one that called the ambulance . Pt denies any N/V/D. Pt denies chest pain or SOB. documented in this encounter Miscellaneous Notes * Plan of Care - Julian Alvarado, PT - 12/28/2020 11:17 AM CDT Pt mobility decreased, pt will benefit from snf to improve mobility * Plan of Care - Bonny Boone RN - 12/28/2020 1:46 AM CDT Goals: Clinical Goals for the Shift: Patient to be relieved of constipation and safety to be maintained Summary: Patient alert and oriented x 4. Patient denies pain or discomfort at this time and able tomake all wants and needs known. Patient had large hard formed BM after supper. Patient resting in bed with no obvious signs of distress noted. Problem: Health Behavior: Goal: Understanding of discharge needs will improve Outcome: Progressing Problem: Lack of Knowledge: Goal: Understanding of ways to prevent future skin breakdown will improve Outcome: Progressing Problem: Lack of Knowledge: Goal: Ability to identify appropriate dietary choices will improve Outcome: Progressing Problem: Nutritional: Goal: Dietary intake will improve Outcome: Progressing * Plan of Care - Eva Holland RN - 12/27/2020 6:52 PM CDT Problem: Health Behavior: Goal: Understanding of discharge needs will improve Outcome: Progressing Problem: Activity: Goal: Mobility will improve Outcome: Progressing Problem: Lack of Knowledge: Goal: Understanding of ways to prevent future skin breakdown will improve Outcome: Progressing Goal: Ability to identify appropriate dietary choices will improve Outcome: Progressing Problem: Nutritional: Goal: Dietary intake will improve Outcome: Progressing Goal: Ability to maintain a balanced intake and output will improve Outcome: Progressing Problem: Skin Integrity: Goal: Risk for impaired skin integrity will decrease Outcome: Progressing Goal: Ability to demonstrate warm and dry skin will improve Outcome: Progressing Goal: Circulation will improve to fullest extent possible Outcome: Progressing Problem: Lack of Knowledge: Goal: Ability to state ways to decrease the risk of falls will improve Outcome: Progressing Problem: Safety: Goal: Will remain free from falls Outcome: Progressing Goal: Will remain free from injury from falls Outcome: Progressing Goal: Will remain free from falls and injury in home environment Outcome: Progressing Problem: Activity: Goal: Fatigue will decrease Outcome: Progressing Goal: Ability to tolerate increased activity will improve Outcome: Progressing Goal: Ability to maintain optimal joint mobility will improve Outcome: Progressing Problem: Bowel/Gastric: Goal: Ability to achieve a regular elimination pattern will improve Outcome: Progressing Problem: Cardiac: Goal: Ability to maintain an adequate cardiac output will improve Outcome: Progressing Goal: Ability to maintain adequate ventilation will improve Outcome: Progressing Goal: Ability to achieve and maintain adequate cardiopulmonary perfusion will improve Outcome: Progressing Problem: Lack of Knowledge: Goal: Knowledge of disease or condition will improve Outcome: Progressing Goal: Knowledge of the prescribed therapeutic regimen will improve Outcome: Progressing Goal: Understanding of discharge needs will improve Outcome: Progressing Problem: Coping: Goal: Ability to adjust to condition or change in health will improve Outcome: Progressing Goal: Communication of feelings regarding changes in body function or appearance will improve Outcome: Progressing Problem: Health Behavior: Goal: Identification of resources available to assist in meeting health care needs will improve Outcome: Progressing Problem: Nutritional: Goal: Maintenance of adequate nutrition will improve Outcome: Progressing Problem: Physical Regulation: Goal: Signs and symptoms of infection will decrease Outcome: Progressing Goal: Will show no signs and symptoms of excessive bleeding Outcome: Progressing Goal: Complications related to the disease process, condition or treatment will be avoided or minimized Outcome: Progressing Problem: Safety: Goal: Ability to remain free from injury will improve Outcome: Progressing Problem: Sensory: Goal: Pain level will decrease Outcome: Progressing Goal: General experience of comfort will improve Outcome: Progressing Problem: Skin Integrity: Goal: Skin integrity will improve Outcome: Progressing Goal: Signs of wound healing will improve Outcome: Progressing Problem: Tissue Perfusion: Goal: Ability to maintain adequate tissue perfusion will improve Outcome: Progressing Goal: Ability to maintain a stable neurologic state will improve Outcome: Progressing Goals: Clinical Goals for the Shift: Pt will have a complete BM today and vital signs will remain stable. Summary: Pt's vital signs are stable. Pt denies pain at this time. Pt had a large, hard BM this morning, but it wasn't a complete BM. Pt remained NPO today for sigmoidoscopy. Pt completed sigmoidoscopy and tolerated it well. Pt is progressing toward care plan goals. Will continue to monitor patient's status. * Perioperative Nursing Note - Sejal Khan RN - 12/27/2020 4:[address] Fragoso spoke with Patient regarding today's procedure. Report called to Riana Holland RN/IMU Patient is being transported via wheelchair back to [facility] * Plan of Care - Bonny Boone RN - 12/27/2020 5:06 AM CDT Goals: Clinical Goals for the Shift: Patient to be relieved of constipation and safety to be maintained Summary: Patient alert and oriented x 4. Denies pain or discomfort. Patient IV site changed per protocol. Patient had medium hard formed bowel movement after suppository. Image in media. Resting in bed with no obvious signs of distress noted. Problem: Health Behavior: Goal: Understanding of discharge needs will improve Outcome: Progressing Problem: Lack of Knowledge: Goal: Understanding of ways to prevent future skin breakdown will improve Outcome: Progressing Problem: Lack of Knowledge: Goal: Ability to identify appropriate dietary choices will improve Outcome: Progressing Problem: Nutritional: Goal: Dietary intake will improve Outcome: Progressing * Plan of Care - Sejal Hoyt RRT - 12/26/2020 7:08 PM CDT Patient has a home NPPV machine at bedside on standby. Will continue to monitor patient. * Plan of Care - Sahra Hampton RRT - 12/26/2020 6:20 PM CDT Impression: patient currently on RA with sats 95%. Breath sounds noted as clear. No labored or shortness of breath noted. Home NPPV at bedside on standby, ordered nocturnal. ?? Plan: Continue with current orders and monitor patient. * Plan of Care - Eva Holland RN - 12/26/2020 3:39 PM CDT Problem: Health Behavior: Goal: Understanding of discharge needs will improve Outcome: Progressing Problem: Activity: Goal: Mobility will improve Outcome: Progressing Problem: Lack of Knowledge: Goal: Understanding of ways to prevent future skin breakdown will improve Outcome: Progressing Goal: Ability to identify appropriate dietary choices will improve Outcome: Progressing Problem: Nutritional: Goal: Dietary intake will improve Outcome: Progressing Goal: Ability to maintain a balanced intake and output will improve Outcome: Progressing Problem: Skin Integrity: Goal: Risk for impaired skin integrity will decrease Outcome: Progressing Goal: Ability to demonstrate warm and dry skin will improve Outcome: Progressing Goal: Circulation will improve to fullest extent possible Outcome: Progressing Problem: Lack of Knowledge: Goal: Ability to state ways to decrease the risk of falls will improve Outcome: Progressing Problem: Safety: Goal: Will remain free from falls Outcome: Progressing Goal: Will remain free from injury from falls Outcome: Progressing Goal: Will remain free from falls and injury in home environment Outcome: Progressing Problem: Activity: Goal: Fatigue will decrease Outcome: Progressing Goal: Ability to tolerate increased activity will improve Outcome: Progressing Goal: Ability to maintain optimal joint mobility will improve Outcome: Progressing Problem: Bowel/Gastric: Goal: Ability to achieve a regular elimination pattern will improve Outcome: Progressing Problem: Cardiac: Goal: Ability to maintain an adequate cardiac output will improve Outcome: Progressing Goal: Ability to maintain adequate ventilation will improve Outcome: Progressing Goal: Ability to achieve and maintain adequate cardiopulmonary perfusion will improve Outcome: Progressing Problem: Lack of Knowledge: Goal: Knowledge of disease or condition will improve Outcome: Progressing Goal: Knowledge of the prescribed therapeutic regimen will improve Outcome: Progressing Goal: Understanding of discharge needs will improve Outcome: Progressing Problem: Coping: Goal: Ability to adjust to condition or change in health will improve Outcome: Progressing Goal: Communication of feelings regarding changes in body function or appearance will improve Outcome: Progressing Problem: Health Behavior: Goal: Identification of resources available to assist in meeting health care needs will improve Outcome: Progressing Problem: Nutritional: Goal: Maintenance of adequate nutrition will improve Outcome: Progressing Problem: Physical Regulation: Goal: Signs and symptoms of infection will decrease Outcome: Progressing Goal: Will show no signs and symptoms of excessive bleeding Outcome: Progressing Goal: Complications related to the disease process, condition or treatment will be avoided or minimized Outcome: Progressing Problem: Safety: Goal: Ability to remain free from injury will improve Outcome: Progressing Problem: Sensory: Goal: Pain level will decrease Outcome: Progressing Goal: General experience of comfort will improve Outcome: Progressing Problem: Skin Integrity: Goal: Skin integrity will improve Outcome: Progressing Goal: Signs of wound healing will improve Outcome: Progressing Problem: Tissue Perfusion: Goal: Ability to maintain adequate tissue perfusion will improve Outcome: Progressing Goal: Ability to maintain a stable neurologic state will improve Outcome: Progressing Goals: Clinical Goals for the Shift: Pt's vital signs will remain stable. Summary: Pt's vital signs are stable. Pt denies pain at this time. Pt is needing to have a BM, but she has not been able to fully empty her bowels. Pt is progressing toward care plan goals. Will continue to monitor patient's status. * Plan of Care - oBnny Boone RN - 12/26/2020 5:11 AM CDT Goals: Clinical Goals for the Shift: Patient to be relieved of constipation and safety to be maintained Summary: Patient alert and oriented x 4. Patient denies pain or discomfort at this time and able tomake all want and needs known. Patient up to commode x 2. Patient given enema and had small stool return. Resting in bed with no obvious signs of distress noted. Problem: Health Behavior: Goal: Understanding of discharge needs will improve Outcome: Progressing Problem: Nutritional: Goal: Dietary intake will improve Outcome: Progressing Problem: Nutritional: Goal: Ability to maintain a balanced intake and output will improve Outcome: Progressing Problem: Lack of Knowledge: Goal: Ability to state ways to decrease the risk of falls will improve Outcome: Progressing Problem: Safety: Goal: Will remain free from falls Outcome: Progressing * Plan of Care - Rosa Ohara RRT - 12/26/2020 2:47 AM CDT Pt wearing home cpap unit at [facility] * Plan of Care - Aida Schuster RN - 12/25/2020 5:13 PM CDT Goals: Problem: Health Behavior: Goal: Understanding of discharge needs will improve Outcome: Progressing Problem: Activity: Goal: Mobility will improve Outcome: Progressing Problem: Lack of Knowledge: Goal: Understanding of ways to prevent future skin breakdown will improve Outcome: Progressing Goal: Ability to identify appropriate dietary choices will improve Outcome: Progressing Problem: Nutritional: Goal: Dietary intake will improve Outcome: Progressing Goal: Ability to maintain a balanced intake and output will improve Outcome: Progressing Problem: Skin Integrity: Goal: Risk for impaired skin integrity will decrease Outcome: Progressing Goal: Ability to demonstrate warm and dry skin will improve Outcome: Progressing Goal: Circulation will improve to fullest extent possible Outcome: Progressing Problem: Lack of Knowledge: Goal: Ability to state ways to decrease the risk of falls will improve Outcome: Progressing Problem: Safety: Goal: Will remain free from falls Outcome: Progressing Goal: Will remain free from injury from falls Outcome: Progressing Goal: Will remain free from falls and injury in home environment Outcome: Progressing Problem: Activity: Goal: Fatigue will decrease Outcome: Progressing Goal: Ability to tolerate increased activity will improve Outcome: Progressing Goal: Ability to maintain optimal joint mobility will improve Outcome: Progressing Problem: Bowel/Gastric: Goal: Ability to achieve a regular elimination pattern will improve Outcome: Progressing Problem: Cardiac: Goal: Ability to maintain an adequate cardiac output will improve Outcome: Progressing Goal: Ability to maintain adequate ventilation will improve Outcome: Progressing Goal: Ability to achieve and maintain adequate cardiopulmonary perfusion will improve Outcome: Progressing Problem: Lack of Knowledge: Goal: Knowledge of disease or condition will improve Outcome: Progressing Goal: Knowledge of the prescribed therapeutic regimen will improve Outcome: Progressing Goal: Understanding of discharge needs will improve Outcome: Progressing Problem: Coping: Goal: Ability to adjust to condition or change in health will improve Outcome: Progressing Goal: Communication of feelings regarding changes in body function or appearance will improve Outcome: Progressing Problem: Health Behavior: Goal: Identification of resources available to assist in meeting health care needs will improve Outcome: Progressing Problem: Nutritional: Goal: Maintenance of adequate nutrition will improve Outcome: Progressing Problem: Physical Regulation: Goal: Signs and symptoms of infection will decrease Outcome: Progressing Goal: Will show no signs and symptoms of excessive bleeding Outcome: Progressing Goal: Complications related to the disease process, condition or treatment will be avoided or minimized Outcome: Progressing Problem: Safety: Goal: Ability to remain free from injury will improve Outcome: Progressing Problem: Sensory: Goal: Pain level will decrease Outcome: Progressing Goal: General experience of comfort will improve Outcome: Progressing Problem: Skin Integrity: Goal: Skin integrity will improve Outcome: Progressing Goal: Signs of wound healing will improve Outcome: Progressing Problem: Tissue Perfusion: Goal: Ability to maintain adequate tissue perfusion will improve Outcome: Progressing Goal: Ability to maintain a stable neurologic state will improve Outcome: Progressing Clinical Goals for the Shift: Patient to be free of injury with VSS Summary: Patient has remained free of injury. New GI consult for constipation. L wrist xray. Patient is compliant with medication and treatment. VSS. Will continue to monitor. * Provider Query - Wayne Snow MD - 12/25/2020 10:23 AM CDT Specify the confirmed or suspected relationship between the Urinary Tract Infection and the urinarycatheter, (see the approved [facility] guidelines below). A cause and effect relationship between diagnoses may not be assumed and must be documented by the provider. Clarify if the Urinary Tract Infection (UTI) is: ___Related to or due to the urinary catheter ___Not related to or due to the urinary catheter ___Other, specify below __x_Clinically unable to determine Indicate the PRESENT ON ADMISSION status ___ Present on Admission ___ Not Present on Admission __x_ Clinically Unable to Determine Additional Provider Response: Unrelated Clinical Indicators/Treatments: 80 y o F admitted with uti, anemia, hx of spastic paraplegia, chf, htn, afib, asthma, dm, cad, cva - has chronic schmitt d/t spastic paraplegia, ua done on adm showed turbid urine with positive nitrate, 4+ leuk esterase, > 50 wbc, 1+ bacteria, urine cx positive for pseudomonas and enterococcus, on iv ab - cont amoxil as ordered, monitor intake and output every 8 hrs, schmitt cath care every shift Asymptomatic Bacteriuria Culture growth of uropathogenic bacteria, irrespective of the presence of pyuria, in the absence of signs or symptoms attributable to UTI UTI Culture growth of uropathogenic bacteria, presence of signs and symptoms; usually have urinalysis showing pyuria CAUTI Culture growth of >=105 cfu/mL of uropathogenic bacteria in the presence of symptoms or signs suggestive of UTI without another identifiable cause in a patient with an indwelling urethral catheter or indwelling suprapubic catheter (or catheter removed in past 48 h) Consider time of catheter placement when documenting CAUTI If urine is collected at the time of catheter insertion or within the first 24 hours after insertion this would not be a CAUTI. If urine is collected more than 48 hours after catheter is removed, this would not be a CAUTI Asymptomatic bacteriuria is common with catheters and should not be documented as CAUTI Lab findings suggestive of UTI or CAUTI can include: - Pyuria: White blood cells seen on urinalysis (usually >25, can be lower in neutropenic patients) - Urine culture* colony count > 100,000 cfu/ml with voided specimen or [place] count > 50,000 cfu/ml with catheterized specimen *In patients who have failed outpatient treatment, culture may be negative due to previous antibiotic use Sources: CDC/NHSN Definition of CAUTI and UTI, 2009 International Clinical Practice Guidelines fromIDSA, AHA Coding Clinics 2008 and 2011 and ID Society practice guidelines for asymptomatic bacteriuria Use of terms such as likely, suspected, possible, or probable (associated with a specific diagnosisthat is being evaluated, monitored, or treated as if it exists) are acceptable and can be coded in the inpatient setting when documented at the time of discharge. This documentation will become part of the patient???s medical record. Sincerely, Aleta Carr RN, CDS Clinical Parent Educator [phone] * Plan of Care - Trina Benitez RN - 12/25/2020 10:16 AM CDT [facility] referral placed in [facility] for RN/PT with [facility]. * Plan of Care - Aruna Waller RN - 12/25/2020 4:31 AM CDT Problem: Health Behavior: Goal: Understanding of discharge needs will improve Outcome: Progressing Problem: Activity: Goal: Mobility will improve Outcome: Progressing Problem: Lack of Knowledge: Goal: Understanding of ways to prevent future skin breakdown will improve Outcome: Progressing Goal: Ability to identify appropriate dietary choices will improve Outcome: Progressing Problem: Nutritional: Goal: Dietary intake will improve Outcome: Progressing Goal: Ability to maintain a balanced intake and output will improve Outcome: Progressing Problem: Skin Integrity: Goal: Risk for impaired skin integrity will decrease Outcome: Progressing Goal: Ability to demonstrate warm and dry skin will improve Outcome: Progressing Goal: Circulation will improve to fullest extent possible Outcome: Progressing Problem: Lack of Knowledge: Goal: Ability to state ways to decrease the risk of falls will improve Outcome: Progressing Problem: Safety: Goal: Will remain free from falls Outcome: Progressing Goal: Will remain free from injury from falls Outcome: Progressing Goal: Will remain free from falls and injury in home environment Outcome: Progressing Problem: Activity: Goal: Fatigue will decrease Outcome: Progressing Goal: Ability to tolerate increased activity will improve Outcome: Progressing Goal: Ability to maintain optimal joint mobility will improve Outcome: Progressing Problem: Bowel/Gastric: Goal: Ability to achieve a regular elimination pattern will improve Outcome: Progressing Problem: Cardiac: Goal: Ability to maintain an adequate cardiac output will improve Outcome: Progressing Goal: Ability to maintain adequate ventilation will improve Outcome: Progressing Goal: Ability to achieve and maintain adequate cardiopulmonary perfusion will improve Outcome: Progressing Problem: Lack of Knowledge: Goal: Knowledge of disease or condition will improve Outcome: Progressing Goal: Knowledge of the prescribed therapeutic regimen will improve Outcome: Progressing Goal: Understanding of discharge needs will improve Outcome: Progressing Problem: Coping: Goal: Ability to adjust to condition or change in health will improve Outcome: Progressing Goal: Communication of feelings regarding changes in body function or appearance will improve Outcome: Progressing Problem: Health Behavior: Goal: Identification of resources available to assist in meeting health care needs will improve Outcome: Progressing Problem: Nutritional: Goal: Maintenance of adequate nutrition will improve Outcome: Progressing Problem: Physical Regulation: Goal: Signs and symptoms of infection will decrease Outcome: Progressing Goal: Will show no signs and symptoms of excessive bleeding Outcome: Progressing Goal: Complications related to the disease process, condition or treatment will be avoided or minimized Outcome: Progressing Problem: Safety: Goal: Ability to remain free from injury will improve Outcome: Progressing Problem: Sensory: Goal: Pain level will decrease Outcome: Progressing Goal: General experience of comfort will improve Outcome: Progressing Problem: Skin Integrity: Goal: Skin integrity will improve Outcome: Progressing Goal: Signs of wound healing will improve Outcome: Progressing Problem: Tissue Perfusion: Goal: Ability to maintain adequate tissue perfusion will improve Outcome: Progressing Goal: Ability to maintain a stable neurologic state will improve Outcome: Progressing Goals: Clinical Goals for the Shift: remain hemodynamically stable Summary: Vitals are stable. Patient is resting comfortably. * Plan of Care - Sahra Hampton RRT - 12/25/2020 3:11 AM CDT Impression: patient currently on Home NPPV, CPAP with sats 93%. Breath sounds noted as clear. No labored or shortness of breath noted. Plan: Continue with current orders and monitor patient. * Plan of Care - Alondra Fleder RN - 12/24/2020 2:53 PM CDT Goals: Clinical Goals for the Shift: Pt will remain hemodynamically stable. Summary: Pt started out this am not feeling well. Feels better this afternoon. New iv antibiotic given for uti, also xanax for anxiety. at bedside. Activity increasing and pt has been up in chair all day. Vss. * Plan of Care - Wanda Hilliard RN - 12/24/2020 6:24 AM CDT Goals: Clinical Goals for the Shift: Pt will remain hemodynamically stable, activity will increase Summary: Pt resting well with shift. SOB when up to bathroom. Denies pain. Call light within reach.Will continue to monitor. * Plan of Care - Alondra Felder RN - 12/23/2020 2:58 PM CDT Goals: Clinical Goals for the Shift: Pt will remain hemodynamically stable, activity will increase Summary: Quie day, received last dose of iron infusion today. Hopeful for dc tomorrow. Denies any complaints. Up to chair for approx 3 hours today. at bedside. * Plan of Care - Karey Bashir, TRISTA - 12/23/2020 10:18 AM CDT Problem: PT Misc Goal: PT STG - Misc 1 Description: Supine to/from sit with min assist Outcome: Progressing Goal: PT STG - Misc 2 Description: Sit to/from stand with cg assist Outcome: Progressing Goal: PT STG - Misc 3 Description: Bed to/from chair with cg assist Outcome: Progressing Goal: PT STG - Misc 4 Description: Ambulate 40' with wheeled walker with cg assist Outcome: Progressing Goal: PT STG - Misc 5 Description: HEP with LE's with cg assist x10 reps Outcome: Progressing * Plan of Care - Annamarie Naidu RN - 12/23/2020 3:05 AM CDT Goals: Clinical Goals for the Shift: will remain fall free Summary: Resting quietly no falls and no acute resp distress. Took Cpap off around 0200 also scd's off. No new complaints. Problem: Safety: Goal: Will remain free from falls Outcome: Progressing * Plan of Care - Bob Weber OT - 12/22/2020 4:03 PM CDT Problem: Grooming Goal: STG - Patient will complete grooming Description: seated/standing with SBA Outcome: Progressing Flowsheets (Taken 12/22/2020 1602) Assist Level: SBA Note: SBA with oral care in sitting Problem: Transfers Goal: STG - Patient will perform toilet transfer Description: or bedside commode using wheeled walker with SBA Note: Pt declined toileting but did complete sit to stand x 3 with min assist then chair pushups toimprove UE strength for improved ind with transfers. * Perioperative Nursing Note - Bekah Olivia RN - 12/22/2020 12:[address] Patel reported findings to pt. He informed her there was no bleeding in her stomach , she will be able to eat and go home in a couple of days. * Plan of Care - Cindy Keenan RN - 12/22/2020 6:13 AM CDT Problem: Health Behavior: Goal: Understanding of discharge needs will improve Outcome: Progressing Problem: Activity: Goal: Mobility will improve Outcome: Progressing Problem: Lack of Knowledge: Goal: Understanding of ways to prevent future skin breakdown will improve Outcome: Progressing Goal: Ability to identify appropriate dietary choices will improve Outcome: Progressing Problem: Nutritional: Goal: Dietary intake will improve Outcome: Progressing Goal: Ability to maintain a balanced intake and output will improve Outcome: Progressing Problem: Skin Integrity: Goal: Risk for impaired skin integrity will decrease Outcome: Progressing Goal: Ability to demonstrate warm and dry skin will improve Outcome: Progressing Goal: Circulation will improve to fullest extent possible Outcome: Progressing Problem: Lack of Knowledge: Goal: Ability to state ways to decrease the risk of falls will improve Outcome: Progressing Problem: Safety: Goal: Will remain free from falls Outcome: Progressing Goal: Will remain free from injury from falls Outcome: Progressing Goal: Will remain free from falls and injury in home environment Outcome: Progressing Goals: Clinical Goals for the Shift: VSS-no falls/injury Summary: Patient remains free of falls/injury. B/P soft, stable. Improved from this nurses previousshift. * Plan of Care - Sally Sinha RN - 12/21/2020 4:06 PM CDT Goals: Clinical Goals for the Shift: vss, no falls orinjury Summary: patient resting in bed for most of the day. Blood pressure has been on the soft side all day. 2nd unit of plasma completed this morning. Patient has complained of shakiness in head and arms on and off MD aware. Hgb stable today see results. No signs of bleeding at this time. Patient had BMtoday. Family at bedside. Call light remains within reach. * Plan of Care - Trina Benitez RN - 12/21/2020 10:50 AM CDT CM Initial Assessment Interview Note Information Obtained From: Patient (12/21/20 1050) Admission Source: ED- EMS Impression: c/o weakness x3D Plan Includes: Assessment and Discharge Planning Primary Source of Transportation: Health Insurance Coverage: Medicare A/B, [employer] Prescription Coverage: yes Pharmacy: [id number] in [place] Primary Care Provider: Destiney Camargo MD Prior to Admission: Primary Caregiver: Spouse Support System: Spouse/Significant Other, Children, Family members, Friends/neighbors Home Care Services: Yes Type of Home Care Services: 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 : No steps inside or outside (12/21/20 1050) Potential discharge needs include: Dialysis: Behavioral Health Services: Behavioral Health Services: No (12/21/20 1050) Patient expects to be Discharged to: Private residence, (12/21/20 1050) Additional Information: Discharge plan discussed with patient and her . Goal is to return home with - he will take her home. is her primary caregiver. She does have a cane, x w/w, 2 w/c and a commode. She also had a cpap from [facility]. Healthcare comes out for [facility] RN. She hasa friend that come 2x daily for about an hour to help with transitioning her in and out of bed and with housekeeping. Barrier to discharge is resolution of weakness. Unknown needs at this time. CM will continue to follow. Patient's Identified Problem/Goal Problem: Ensure acute medical needs are met and that patient has a safe discharge plan. Goal: Secure a discharge plan that patient/family are agreeable with and ensure patient has continuum of care. Case management will follow for discharge planning and send referrals as needed. Trina Benitez RN * Plan of Care - Cindy Keenan RN - 12/21/2020 7:05 AM CDT Problem: Health Behavior: Goal: Understanding of discharge needs will improve Outcome: Progressing Problem: Activity: Goal: Mobility will improve Outcome: Progressing Problem: Lack of Knowledge: Goal: Understanding of ways to prevent future skin breakdown will improve Outcome: Progressing Goal: Ability to identify appropriate dietary choices will improve Outcome: Progressing Problem: Nutritional: Goal: Dietary intake will improve Outcome: Progressing Goal: Ability to maintain a balanced intake and output will improve Outcome: Progressing Problem: Skin Integrity: Goal: Risk for impaired skin integrity will decrease Outcome: Progressing Goal: Ability to demonstrate warm and dry skin will improve Outcome: Progressing Goal: Circulation will improve to fullest extent possible Outcome: Progressing Problem: Lack of Knowledge: Goal: Ability to state ways to decrease the risk of falls will improve Outcome: Progressing Problem: Safety: Goal: Will remain free from falls Outcome: Progressing Goal: Will remain free from injury from falls Outcome: Progressing Goal: Will remain free from falls and injury in home environment Outcome: Progressing Goals: pt to be priented to unit and usage of call light Summary: Oriented to unit and usage of call light. Patient received 1 unit FFP on IMU, 2nd unit infusing per peripheral line. * ED Procedure Note - Julio Mccabe MD - 12/20/2020 10:08 PM CDTAssociated Order(s): Critical Care Procedure Critical Care Performed by: Julio Mccabe MD Authorized by: Julio Mccabe MD Critical care provider statement: As reflected in the history, physical exam, orders, notes, and/or MDM, I was personally present while the patient was critically ill and provided critical care services for approximately 35 minutes, excluding time involved in separately billable procedures. Critical care was necessary to treat or prevent imminent or life-threatening deterioration of the following condition(s): Dehydration acute blood loss anemia skin/soft tissue infection Critical care was time spent by me providing the following: serial bedside patient exams, interpretation of bedside monitors, imaging, and arterial/venous lab draws, continuous pulse oximetry and continuous telemetry I provided emergent necessary critical care medicine services to this patient. I ordered and reviewed test results and/or imaging studies. I spent time discussing the management of this critically ill patient with consultants and the medical staff. I spent time discussing the management and therapeutic options for this critically ill patient with the patient themselves or with the appropriate designated surrogate decision-maker. I spent time documenting in the medical record. Julio Mccabe MD 12/20/20 8675 * ED Procedure Note - Julio Mccabe MD - 12/20/2020 6:57 PM CDTAssociated Order(s): ECG 12 lead Procedure ECG 12 lead Date/Time: 12/20/2020 6:57 PM Performed by: Julio Mccabe MD Authorized by: Julio Mccabe MD Rate: ECG rate: 81 ECG rate assessment: normal Rhythm: Rhythm: atrial fibrillation Comments: Partial left bundle branch block. Poor R wave progression. Similar to EKG on 11/26/2020. Julio Mccabe MD 12/20/20 3789 documented in this encounter Plan of Treatment Not on file documented as of this encounter Procedures Procedure Name Priority Date/Time Associated Diagnosis Comments POCT GLUCOSE DEVICE Routine 12/28/2020 11:56 AM CDT POCT GLUCOSE DEVICE Routine 12/28/2020 8:50 AM CDT EGFR Routine 12/28/2020 4:36 AM CDT CBC WITHOUT DIFFERENTIAL Routine 021 4:36 AM CDT BASIC METABOLIC PANEL Routine 12/28/2020 4:36 AM CDT POCT GLUCOSE DEVICE Routine 12/28/2020 2:58 AM CDT POCT GLUCOSE DEVICE Routine 12/27/2020 9:58 PM CDT POCT GLUCOSE DEVICE Routine 12/27/2020 5:08 PM CDT SIGMOIDOSCOPY 12/27/2020 3:35 PM CDT Constipation, unspecified constipation type FLEXIBLE SIGMOIDOSCOPY 3:31 PM CDT POCT GLUCOSE DEVICE Routine 12/27/2020 3:27 PM CDT POCT GLUCOSE DEVICE Routine 12/27/2020 12:00 PM CDT POCT GLUCOSE DEVICE Routine 12/27/2020 7:29 AM CDT EGFR Routine 12/27/2020 5:28 AM CDT CBC WITHOUT DIFFERENTIAL Routine 021 5:28 AM CDT MAGNESIUM Routine 12/27/2020 5:28 AM CDT BASIC METABOLIC PANEL Routine 12/27/2020 5:28 AM CDT POCT GLUCOSE DEVICE Routine 12/27/2020 2:49 AM CDT POCT GLUCOSE DEVICE Routine 12/26/2020 9:08 PM CDT POCT GLUCOSE DEVICE Routine 12/26/2020 5:10 PM CDT POCT GLUCOSE DEVICE Routine 12/26/2020 11:57 AM CDT POCT GLUCOSE DEVICE Routine 12/26/2020 8:15 AM CDT EGFR Routine 12/26/2020 4:35 AM CDT CBC WITHOUT DIFFERENTIAL Routine 021 4:35 AM CDT BASIC METABOLIC PANEL Routine 12/26/2020 4:35 AM CDT POCT GLUCOSE DEVICE Routine 12/26/2020 3:26 AM CDT POCT GLUCOSE DEVICE Routine 12/25/2020 9:14 PM CDT POCT GLUCOSE DEVICE Routine 12/25/2020 5:14 PM CDT XR ABDOMEN AP 1 VIEW IP Routine 12/25/2020 3:18 PM CDT XR WRIST LEFT 3 OR MORE VIEWS IP Routine 3:18 PM CDT POCT GLUCOSE DEVICE Routine 12/25/2020 12:12 PM CDT US CAROTIDS DUPLEX BILATERAL IP Routine 01/2021 9:20 AM CDT POCT GLUCOSE DEVICE Routine 12/25/2020 8:10 AM CDT CBC WITHOUT DIFFERENTIAL Routine 021 5:46 AM CDT POCT GLUCOSE DEVICE Routine 12/25/2020 3:05 AM CDT POCT GLUCOSE DEVICE Routine 12/24/2020 8:56 PM CDT POCT GLUCOSE DEVICE Routine 12/24/2020 4:36 PM CDT POCT GLUCOSE DEVICE Routine 12/24/2020 12:22 PM CDT POCT GLUCOSE DEVICE Routine 12/24/2020 8:00 AM CDT POCT GLUCOSE DEVICE Routine 12/24/2020 7:34 AM CDT EGFR Routine 12/24/2020 4:43 AM CDT THYROID FUNCTION CASCADE Routine 021 4:43 AM CDT CBC WITHOUT DIFFERENTIAL Routine 021 4:43 AM CDT T4, FREE Routine 12/24/2020 4:43 AM CDT PHOSPHORUS Routine 12/24/2020 4:43 AM CDT BASIC METABOLIC PANEL Routine 12/24/2020 4:43 AM CDT POCT GLUCOSE DEVICE Routine 12/24/2020 2:19 AM CDT POCT GLUCOSE DEVICE Routine 12/23/2020 9:08 PM CDT POCT GLUCOSE DEVICE Routine 12/23/2020 5:10 PM CDT POCT GLUCOSE DEVICE Routine 12/23/2020 11:45 AM CDT POCT GLUCOSE DEVICE Routine 12/23/2020 8:33 AM CDT EGFR Routine 12/23/2020 5:09 AM CDT DIFFERENTIAL AUTO Routine 12/23/2020 5:09 AM CDT CBC WITH AUTO DIFFERENTIAL Routine 12/23 5:09 AM CDT FOLATE Routine 12/23/2020 5:09 AM CDT RENAL FUNCTION PANEL Routine 12/23/2020 5:09 AM CDT POCT GLUCOSE DEVICE Routine 12/23/2020 2:00 AM CDT POCT GLUCOSE DEVICE Routine 12/22/2020 8:50 PM CDT POCT GLUCOSE DEVICE Routine 12/22/2020 5:16 PM CDT SURGICAL PATHOLOGY STAT 12/22/2020 1:17 PM CDT Anemia, unspecified type Occult blood in stools H. PYLORI UREASE SCREEN (MAIA TEST) STAT 12/22/2020 11:41 AM CDT ESOPHAGOGASTRODUODENOSCOPY BIOPSY 12/22/2020 11:19 AM CDT Anemia, unspecified type Occult blood in stools POCT GLUCOSE DEVICE Routine 12/22/2020 11:18 AM CDT EGD 12/22/2020 11:16 AM CDT POCT GLUCOSE DEVICE Routine 12/22/2020 8:24 AM CDT EGFR Routine 12/22/2020 4:23 AM CDT DIFFERENTIAL AUTO Routine 12/22/2020 4:23 AM CDT CBC WITH AUTO DIFFERENTIAL Routine 12/22 4:23 AM CDT VITAMIN B12 Routine 12/22/2020 4:23 AM CDT RENAL FUNCTION PANEL Routine 12/22/2020 4:23 AM CDT POCT GLUCOSE DEVICE Routine 12/22/2020 2:02 AM CDT POCT GLUCOSE DEVICE Routine 12/21/2020 9:08 PM CDT CBC WITHOUT DIFFERENTIAL Routine 6:11 PM CDT POCT GLUCOSE DEVICE Routine 12/21/2020 5:33 PM CDT POCT GLUCOSE DEVICE Routine 12/21/2020 12:33 PM CDT DIFFERENTIAL AUTO Timed 12/21/2020 10:59 AM CDT CBC WITH AUTO DIFFERENTIAL Timed 12/21 10:59 AM CDT ECG 12-LEAD Routine 12/21/2020 10:33 AM CDT POCT GLUCOSE DEVICE Routine 12/21/2020 10:13 AM CDT GUAIAC OCCULT BLOOD, FECAL, NOT FOR NEOPLASM SCREENING Routine 12/21/2020 9:38 AM CDT POCT GLUCOSE DEVICE Routine 12/21/2020 8:44 AM CDT EGFR STAT 12/21/2020 7:38 AM CDT CBC WITHOUT DIFFERENTIAL STAT 021 7:38 AM CDT BASIC METABOLIC PANEL STAT 12/21/2020 7:38 AM CDT TRANSFUSE PLASMA Timed 12/21/2020 6:50 AM CDT PREPARE PLASMA Routine 12/21/2020 6:42 AM CDT TRANSFUSE PLASMA Timed 12/21/2020 2:38 AM CDT POCT GLUCOSE DEVICE Routine 12/21/2020 2:34 AM CDT PREPARE PLASMA Routine 12/21/2020 1:58 AM CDT PREPARE PLASMA STAT 12/20/2020 11:36 PM CDT DIFFERENTIAL AUTO Timed 12/20/2020 11:23 PM CDT CBC WITH AUTO DIFFERENTIAL Timed 12/20 11:23 PM CDT [place] CRITICAL CARE ILL/INJURED PATIENT INIT 30-74 MIN Routine 12/20/2020 10:08 PM CDT TRANSFUSE RED BLOOD CELLS Timed 2020 7:[address] ABDOMEN PELVIS W CONTRAST ED 08/2020 6:59 PM CDT B ABO / RH CONFIRMATION TESTING Routine 12/20/2020 6:25 PM CDT PREPARE RBC Timed 12/20/2020 6:23 PM CDT CROSSMATCH Timed 12/20/2020 6:20 PM CDT COVID-19 CORONAVIRUS RNA Routine 021 5:57 PM CDT IRON PROFILE W/ IBC Routine 12/20/2020 5:39 PM CDT FERRITIN Routine 12/20/2020 5:39 PM CDT VITAMIN B12 Routine 12/20/2020 5:39 PM CDT SEPSIS LACTATE WITH REFLEX Routine 12/20 4:35 PM CDT B ABO / RH CONFIRMATION TESTING STAT 12/20/2020 4:35 PM CDT ABO/RH STAT 12/20/2020 4:35 PM CDT RETICULOCYTES STAT 12/20/2020 4:35 PM CDT ANTIBODY SCREEN STAT 12/20/2020 4:35 PM CDT TYPE AND SCREEN STAT 12/20/2020 4:35 PM CDT URINALYSIS AND REFLEX TO MICROSCOPIC AND CULTURE Routine 12/20/2020 4:27 PM CDT URINALYSIS, MICROSCOPIC ONLY Routine 08/2020 4:27 PM CDT URINE CULTURE Routine 12/20/2020 4:27 PM CDT XR CHEST 1 VIEW ED 12/20/2020 4:21 PM CDT TROPONIN T HIGH-SENSITIVITY SERIES (BASELINE, 2HR, 4HR, 6HR) STAT 12/20/2020 4:10 PM CDT EGFR STAT 12/20/2020 4:10 PM CDT DIFFERENTIAL AUTO STAT 12/20/2020 4:10 PM CDT PRO B-TYPE NATRIURETIC PEPTIDE STAT 0 12/20/2020 4:10 PM CDT IRON PROFILE W/ IBC STAT 12/20/2020 4:10 PM CDT CBC WITH AUTO DIFFERENTIAL STAT 12/20 4:10 PM CDT PROTIME-INR STAT 12/20/2020 4:10 PM CDT CRP (ACUTE PHASE) STAT 12/20/2020 4:10 PM CDT MAGNESIUM Routine 12/20/2020 4:10 PM CDT COMPREHENSIVE METABOLIC PANEL STAT 4:10 PM CDT ECG 12-LEAD Routine 12/20/2020 4:09 PM CDT POCT GLUCOSE DEVICE Routine 12/20/2020 3:15 PM CDT documented in this encounter Results * Transfuse RBC (12/28/2020 7:29 PM CDT) Blood specimen (specimen) Julio Mccabe MD BLOOD TRANSFUSION ORDERABLE S Edited Result - Final [facility] ([place]) [address] [place] [address] Department [place] [address] * Transfuse RBC: 1 Units (12/28/2020 7:29 PM CDT) Blood specimen (specimen) Julio Mccabe MD BLOOD TRANSFUSION ORDERABLE S Edited Result - Final * (ABNORMAL) POCT glucose (12/28/2020 11:56 AM CDT) Glucose, POC 189(H) 71 - 98 mg/dL [facility] ([place]) Blood specimen (specimen) 12/28/2020 11:56 AM CDT 12/28/2020 11:56 AM CDT Nina Larsen MD LAB POCT ORDERABLES - DEV ICE Final Result [facility] ([place]) 1 [facility] [place] [address] * (ABNORMAL) POCT glucose (12/28/2020 8:50 AM CDT) Glucose, POC 149(H) 71 - 98 mg/dL [facility] ([place]) Blood specimen (specimen) 12/28/2020 8:50 AM CDT 12/28/2020 8:50 AM CDT us Nina Larsen MD LAB POCT ORDERABLES - DEV ICE Final Result [facility] ([place]) 1 [facility] [place] [address] * eGFR (12/28/2020 4:36 AM CDT) eGFR 82 mL/min/1.7 3 m2 [facility] ([place]) Comment: Interpretive Data [...] interpretive data was last reviewed 2020 Blood specimen (specimen) 12/28/2020 4:36 AM CDT 12/28/2020 5:07 AM CDT Neeta Patel MD LAB BLOOD ORDERABLES Final Result [facility] ([place]) 1 [facility] [place] [address] * (ABNORMAL) Basic metabolic panel (12/28/2020 4:36 AM CDT) Sodium 135 135 - 145 mmol/L [facility] ([place]) Potassium, pl 4.6 3.3 - 4.9 mmol/L [facility] ([place]) Chloride 104 97 - 110 mmol/L [facility] ([place]) CO2 21(L) 22 - 32 mmol/L [facility] ([place]) Anion gap 10 2 - 15 mmol/L [facility] ([place]) BUN 19 8 - 25 mg/dL [facility] ([place]) Creatinine 0.67 0.60 - 1.10 mg/dL [facility] ([place]) Glucose 112 70 - 199 mg/dL [facility] ([place]) [...] interpretive data was last revised 2017. Calcium 9.2 8.5 - 10.3 mg/dL [facility] ([place]) Blood specimen (specimen) 12/28/2020 4:36 AM CDT 12/28/2020 5:07 AM CDT Neeta Patel MD LAB BLOOD ORDERABLES Final Result [facility] ([place]) 1 [facility] [place] [address] * (ABNORMAL) CBC without differential (12/28/2020 4:36 AM CDT) Pathologist [facility] WBC 8.3 3.8 - 9.9 K/cumm [facility] ([place]) Hgb 9.3(L) 11.9 - 15.5 g/dL [facility] ([place]) Hct 32.8(L) 35.6 - 45.5 % [facility] ([place]) Plt 277 150 - 400 K/cumm [facility] ([place]) MPV 10.2 9.1 - 12.3 fL [facility] ([place]) RBC 4.07 3.90 - 5.20 M/cumm [facility] ([place]) MCV 80.6(L) 81.3 - 96.4 fL [facility] ([place]) MCH 22.9(L) 27.1 - 33.3 pg [facility] ([place]) MCHC 28.4(L) 32.3 - 35.7 g/dL [facility] ([place]) RDW CV 19.9(H) 11.1 - 14.9 % [facility] ([place]) RDW SD 57.6(H) 35.7 - 48.1 fL [facility] ([place]) NRBC abs 0.00 0.00 - 0.01 K/cumm [facility] ([place]) Blood specimen (specimen) 12/28/2020 4:36 AM CDT 12/28/2020 5:07 AM CDT Neeta Patel MD LAB BLOOD ORDERABLES Final Result [facility] ([place]) 1 [facility] [place] [place] [address] * (ABNORMAL) POCT glucose (12/28/2020 2:58 AM CDT) Pathologist [facility] Glucose, POC 158(H) 71 - 98 mg/dL [facility] ([place]) Blood specimen (specimen) 12/28/2020 2:58 AM CDT 12/28/2020 2:58 AM CDT Nina Larsen MD LAB POCT ORDERABLES - DEV ICE Final Result [facility] ([place]) 1 [facility] [place] [address] * (ABNORMAL) POCT glucose (12/27/2020 9:58 PM CDT) Glucose, POC 214(H) 71 - 98 mg/dL [facility] ([place]) Blood specimen (specimen) 12/27/2020 9:58 PM CDT 12/27/2020 9:58 PM CDT Nina Larsen MD LAB POCT ORDERABLES - DEV ICE Final Result Performing Organization Address [facility]/ZIP Co de Phone Number [facility] ([place]) 1 [facility] [place] [address] * (ABNORMAL) POCT glucose (12/27/2020 5:08 PM CDT) Glucose, POC 115(H) 71 - 98 mg/dL [facility] ([place]) Blood specimen (specimen) 12/27/2020 5:08 PM CDT 12/27/2020 5:08 PM CDT Nina Larsen MD LAB POCT ORDERABLES - DEV ICE Final Result [facility] ([place]) 1 [facility] [place] [address] * FLEXIBLE SIGMOIDOSCOPY (12/27/2020 3:31 PM CDT) Anatomical Region Laterality Modality Other Narrative Procedure Note Neeta Patel MD - 12/27/2020 3:31 PM CDT [facility] Patient Name: Loc Anderson Procedure Date: 12/27/2020 3:31 PM Date of : 1940 Admit Type: Inpatient Age: 80 Gender: Female Attending MD: Neeta Patel M.D. Room: [facility] ENDOSCOPY ROOM 1 Note Status: Finalized Patient Profile: This is an 80 year old female. Patient admittedwith anemia and occult blood in the stool. She haschronic constipation and impaction on imaging.Sigmoidoscopy today for disimpaction and evaluation. Procedure: Flexible Sigmoidoscopy Indications: Gastrointestinal occult blood loss, Constipation, Fecal impaction Referring MD: Destiney Camargo MD Providers: Neeta Patel M.D. Impression: Large fecal impaction the rectum and sigmoid colon, digitally removed the rectal impaction Erythema in the rectum with few erosions likely explain the occult blood loss. No active bleeding No specimens collected. Recommendation: - Continue present medications. Daily regimen of Dulcolax suppository every night, Linzess daily,and milk of magnesia daily. - No further GI workup is needed - Advance diet Medicines: Monitored Anesthesia Care Complications: No immediate complications. Estimated Blood Loss: Estimated blood loss: none. Procedure: Pre-Anesthesia Assessment: - Prior to the procedure, a History and Physicalwas performed, and patient medications and allergieswere reviewed. The patient's tolerance of previous anesthesia was also reviewed. The risks andbenefits of the procedure and the sedation options and risks were discussed with the patient. All questions were answered, and informed consent was obtained. Prior Anticoagulants: The patient has taken Eliquis (apixaban), last dose was day of procedure. ASAGrade Assessment: III - A patient with severe systemic disease. After reviewing the risks and benefits,the patient was deemed in satisfactory condition to undergo the procedure. The benefits, risks, and alternatives to theprocedure and sedation were discussed and informed consentwas obtained. The Endoscope [id number] was introduced through the anus and advanced to the the sigmoid colon. The flexible sigmoidoscopy was accomplished without difficulty. The patienttolerated the procedure well. The quality of the bowel preparation was poor. Findings: The perianal exam was normal and digital rectal examinations showedhard stool in the rectum impacted This impaction was performed manually and large amount of largebubbles of the hard stool removed. The scope was then introduced. Remaining stool was clear. The lining mucosa noted with diffuse erythema andthe few areas of erosions likely secondary to the impaction. There was impaction all the way to the distal sigmoid colon. We used water jetto evaluate as much as possible with the stool. Still remaining high impaction sigmoid colon that was difficult to reach digitally for removal. Electronically signed by Neeta Patel M.D. Neeta Patel M.D. 12/27/2020 4:14:59 PM Number of Addenda: 0 Note Initiated On: 12/27/2020 3:31 PM Procedure Code(s): --- Professional --- 50435, Sigmoidoscopy, flexible; diagnostic, including collection of specimen(s) by brushing or washing, when performed (separateprocedure) Diagnosis Code(s): --- Professional --- R19.5, Other fecal abnormalities K59.00, Constipation, unspecified K56.41, Fecal impaction CPT copyright 2019 [employer]. All rights reserved. The codes documented in this report are preliminary and upon apprentice carpenter reviewmay be revised to meet current compliance requirements. Recognized by the [employer] for promoting quality in endoscopy Neeta Patel MD ENDOSCOPY PROCEDURES Final Result * (ABNORMAL) POCT glucose (12/27/2020 3:27 PM CDT) Glucose, POC 114(H) 71 - 98 mg/dL [facility] ([place]) Blood specimen (specimen) 12/27/2020 3:27 PM CDT 12/27/2020 3:27 PM CDT Nina Larsen MD LAB POCT ORDERABLES - DEV ICE Final Result Performing Organization Address City/[facility]/ZIP Co de Phone Number [facility] ([place]) 1 [facility] [place] [address] * (ABNORMAL) POCT glucose (12/27/2020 12:00 PM CDT) Glucose, POC 136(H) 71 - 98 mg/dL [facility] ([place]) Blood specimen (specimen) 12/27/2020 12:00 PM CDT 12/27/2020 12:00 PM CDT Nina Larsen MD LAB POCT ORDERABLES - DEV ICE Final Result [facility] ([place]) 1 [facility] [place] [address] * (ABNORMAL) POCT glucose (12/27/2020 7:29 AM CDT) Glucose, POC 131(H) 71 - 98 mg/dL [facility] ([place]) Blood specimen (specimen) 12/27/2020 7:29 AM CDT 12/27/2020 7:29 AM CDT Nina Larsen MD LAB POCT ORDERABLES - DEV ICE Final Result Performing Organization Address [facility] Co de Phone Number [facility] ([place]) 1 [facility] [place] [address] * eGFR (12/27/2020 5:28 AM CDT) eGFR 78 mL/min/1.7 3 m2 [facility] ([place]) Comment: Interpretive Data Reference Interval Normal ?>/= [...] interpretive data was last reviewed 2020 Blood specimen (specimen) 12/27/2020 5:28 AM CDT 12/27/2020 5:48 AM CDT Nina Larsen MD LAB BLOOD ORDERABLES Bárbara l Result Performing Organization Address City/[facility]/ZIP Co de Phone Number [facility] ([place]) 1 [facility] [place] [address] * (ABNORMAL) Magnesium (12/27/2020 5:28 AM CDT) Magnesium 3.7(H) 1.4 - 2.5 mg/dL [facility] ([place]) Blood specimen (specimen) 12/27/2020 5:28 AM CDT 12/27/2020 5:48 AM CDT Nina Larsen MD LAB BLOOD ORDERABLES Bárbara mcdaniel Result Performing Organization Address City/[facility]/ZIP Co de Phone Number [facility] ([place]) 1 [facility] [place] [address] * Basic metabolic panel (12/27/2020 5:28 AM CDT) Sodium 135 135 - 145 mmol/L [facility] ([place]) Potassium, pl 4.5 3.3 - 4.9 mmol/L [facility] ([place]) Chloride 103 97 - 110 mmol/L [facility] ([place]) CO2 25 22 - 32 mmol/L [facility] ([place]) Anion gap 7 2 - 15 mmol/L [facility] ([place]) BUN 19 8 - 25 mg/dL [facility] ([place]) Creatinine 0.72 0.60 - 1.10 mg/dL [facility] ([place]) Glucose 148 70 - 199 mg/dL [facility] ([place]) Comment: Interpretive Data Fasting glucose >/= [...] interpretive data was last revised 2017. Calcium 9.6 8.5 - 10.3 mg/dL [facility] ([place]) Blood specimen (specimen) 12/27/2020 5:28 AM CDT 12/27/2020 5:48 AM CDT Nina Larsen MD LAB BLOOD ORDERABLES Bárbara mcdaniel Result Performing Organization Address City/[facility] Co de Phone Number [facility] ([place]) 1 [facility] [place] [address] * (ABNORMAL) CBC without differential (12/27/2020 5:28 AM CDT) WBC 10.6(H) 3.8 - 9.9 K/cumm [facility] ([place]) Hgb 9.6(L) 11.9 - 15.5 g/dL [facility] ([place]) Hct 34.3(L) 35.6 - 45.5 % [facility] ([place]) Plt 268 150 - 400 K/cumm [facility] ([place]) MPV 9.8 9.1 - 12.3 fL [facility] ([place]) RBC 4.24 3.90 - 5.20 M/cumm [facility] ([place]) MCV 80.9(L) 81.3 - 96.4 fL [facility] ([place]) MCH 22.6(L) 27.1 - 33.3 pg [facility] ([place]) MCHC 28.0(L) 32.3 - 35.7 g/dL [facility] ([place]) RDW CV 20.5(H) 11.1 - 14.9 % [facility] ([place]) RDW SD 58.6(H) 35.7 - 48.1 fL [facility] ([place]) NRBC abs 0.02(H) 0.00 - 0.01 K/cumm [facility] ([place]) Blood specimen (specimen) 12/27/2020 5:28 AM CDT 12/27/2020 5:48 AM CDT Nina Larsen MD LAB BLOOD ORDERABLES Bárbara l Result [facility] ([place]) 1 [facility] [place] [place] [address] * (ABNORMAL) POCT glucose (12/27/2020 2:49 AM CDT) Glucose, POC 136(H) 71 - 98 mg/dL [facility] ([place]) Blood specimen (specimen) 12/27/2020 2:49 AM CDT 12/27/2020 2:49 AM CDT Nina Larsen MD LAB POCT ORDERABLES - DEV ICE Final Result Performing Organization Address [facility]/ZIP Co de Phone Number [facility] ([place]) 1 [facility] [place] [address] * (ABNORMAL) POCT glucose (12/26/2020 9:08 PM CDT) Glucose, POC 136(H) 71 - 98 mg/dL [facility] ([place]) Blood specimen (specimen) 12/26/2020 9:08 PM CDT 12/26/2020 9:08 PM CDT Nina Larsen MD LAB POCT ORDERABLES - DEV ICE Final Result Performing Organization Address [facility]/ZIP Co de Phone Number [facility] ([place]) 1 [facility] [place] [address] * (ABNORMAL) POCT glucose (12/26/2020 5:10 PM CDT) Glucose, POC 162(H) 71 - 98 mg/dL [facility] ([place]) Blood specimen (specimen) 12/26/2020 5:10 PM CDT 12/26/2020 5:10 PM CDT us Nina Larsen MD LAB POCT ORDERABLES - DEV ICE Final Result [facility] ([place]) 1 [facility] [place] [address] * (ABNORMAL) POCT glucose (12/26/2020 11:57 AM CDT) Glucose, POC 142(H) 71 - 98 mg/dL [facility] (ARABELLA) Blood specimen (specimen) 12/26/2020 11:57 AM CDT 12/26/2020 11:57 AM CDT Nina Larsen MD LAB POCT ORDERABLES - DEV ICE Final Result Performing Organization Address City/[facility]/ZIP Co de Phone Number [facility] ([place]) 1 [facility] [place] [place] [address] * (ABNORMAL) POCT glucose (12/26/2020 8:15 AM CDT) Glucose, POC 145(H) 71 - 98 mg/dL [facility] ([place]) Blood specimen (specimen) 12/26/2020 8:15 AM CDT 12/26/2020 8:15 AM CDT Nina Larsen MD LAB POCT ORDERABLES - DEV ICE Final Result Performing Organization Address City/[facility] Co de Phone Number MADDI HOFF ([place]) 1 [facility] [place] [address] * eGFR (12/26/2020 4:35 AM CDT) eGFR 82 mL/min/1.7 3 m2 [facility] ([place]A) Comment: Interpretive Data [...] interpretive data was last reviewed 2020 Blood specimen (specimen) 12/26/2020 4:35 AM CDT 12/26/2020 5:01 AM CDT us Wayne Snow MD LAB BLOOD ORDERABLES Final Result [facility] ([place]) 1 [facility] Department of Laboratories [place], [place] [id number] * (ABNORMAL) CBC without differential (12/26/2020 4:35 AM CDT) WBC 9.8 3.8 - 9.9 K/cumm [facility] ([place]LL[place]) Hgb 9.1(L) 11.9 - 15.5 g/dL [facility] ([place]) Hct 31.8(L) 35.6 - 45.5 % [facility] ([place]) Plt 263 150 - 400 K/cumm [facility] ([place]) MPV 9.9 9.1 - 12.3 fL [facility] ([place]) RBC 3.98 3.90 - 5.20 M/cumm [facility] ([place]) MCV 79.9(L) 81.3 - 96.4 fL [facility] ([place]) MCH 22.9(L) 27.1 - 33.3 pg [facility] ([place]) MCHC 28.6(L) 32.3 - 35.7 g/dL [facility] ([place]) RDW CV 20.4(H) 11.1 - 14.9 % [facility] ([place]) RDW SD 56.9(H) 35.7 - 48.1 fL [facility] ([place]) NRBC abs 0.02(H) 0.00 - 0.01 K/cumm [facility] ([place]) Blood specimen (specimen) 12/26/2020 4:35 AM CDT 12/26/2020 5:01 AM CDT us Wayne Snow MD LAB BLOOD ORDERABLES Final Result [facility] ([place]) 1 [facility] [place] [address] * Basic metabolic panel (12/26/2020 4:35 AM CDT) Sodium 135 135 - 145 mmol/L [facility] ([place]) Potassium, pl 4.9 3.3 - 4.9 mmol/L [facility] ([place]) Chloride 105 97 - 110 mmol/L [facility] ([place]) CO2 23 22 - 32 mmol/L [facility] ([place]) Anion gap 7 2 - 15 mmol/L [facility] ([place]) BUN 18 8 - 25 mg/dL [facility] ([place]) Creatinine 0.66 0.60 - 1.10 mg/dL [facility] ([place]) Glucose 135 70 - 199 mg/dL [facility] ([place]) [...] interpretive data was last revised 2017. Calcium 9.5 8.5 - 10.3 mg/dL [facility] ([place]) Blood specimen (specimen) 12/26/2020 4:35 AM CDT 12/26/2020 5:01 AM CDT us Wayne Snow MD LAB BLOOD ORDERABLES Final Result Performing Organization Address [facility]/ZIP Co de Phone Number MADDI HOFF ([place]) 1 [facility] [place] [address] * (ABNORMAL) POCT glucose (12/26/2020 3:26 AM CDT) Glucose, POC 176(H) 71 - 98 mg/dL [facility] ([place]) Blood specimen (specimen) 12/26/2020 3:26 AM CDT 12/26/2020 3:26 AM CDT us Wayne Snow MD LAB POCT ORDERABLES - DEVIC E Final Result Performing Organization Address [facility] Co de Phone Number MADDI HOFF ([place]) 1 [facility] [place] [address] * (ABNORMAL) POCT glucose (12/25/2020 9:14 PM CDT) Glucose, POC 185(H) 71 - 98 mg/dL [facility] ([place]) Blood specimen (specimen) 12/25/2020 9:14 PM CDT 12/25/2020 9:14 PM CDT us Wayne Snow MD LAB POCT ORDERABLES - DEVIC E Final Result Performing Organization Address City/[facility] Co de Phone Number MADDI HOFF ([place]) 1 [facility] [place] [address] * (ABNORMAL) POCT glucose (12/25/2020 5:14 PM CDT) Glucose, POC 144(H) 71 - 98 mg/dL [facility] ([place]) Blood specimen (specimen) 12/25/2020 5:14 PM CDT 12/25/2020 5:14 PM CDT us Wayne Snow MD LAB POCT ORDERABLES - DEVIC E Final Result M[facility]DI [facility]OFF ([place]) 1 [facility] [place] [address] * XR Abdomen Ap 1 Vw (12/25/2020 3:18 PM CDT) Anatomical Region Laterality Modality Body, Abdomen N/A Computed Radiogr aphy 12/25/2020 4:30 PM CDT Narrative 12/25/2020 4:31 PM CDT EXAM DESCRIPTION: ?? XR ABDOMEN AP 1 VIEW REASON FOR STUDY: ?? Patient states her left wrist became swollen after having an IV removed. ??Patient originally had diarrhea 1-2 weeks ago and is now having abdominal distention. Duration: 3-4 days TECHNIQUE: ?? Supine radiographic view of the abdomen acquired. COMPARISON: ?? None FINDINGS: BOWEL GAS PATTERN: ??Scattered non-dilated small bowel loops. Nonobstructive pattern. ??There is a very large amount of stool throughout the colon. SOFT TISSUES: ??No significant abnormal calcifications. BONES: ??No significant abnormality. OTHER: ??No other significant finding. IMPRESSION: ?? Very large amount of stool throughout the colon all the way to the rectum. THIS IS AN ELECTRONICALLY VERIFIED FINAL REPORT 12/25/2020 4:31 PM - Electronically signed by Keyshawn Cummings M.D. LEIGH: LEIGH D: ??12/25/2020 4:31 PM T: ??12/25/2020 4:31 PM Report ID: [id number] Reading Location: ??[id number] Procedure Note Ian Cummings MD - 12/25/2020 EXAM DESCRIPTION: XR ABDOMEN AP 1 VIEW REASON FOR STUDY: Patient states her left wrist became swollen afterhaving an IV removed. Patient originally had diarrhea 1-2 weeks ago and is now having abdominal distention. Duration: 3-4 days TECHNIQUE: Supine radiographic view of the abdomen acquired. COMPARISON: None FINDINGS: BOWEL GAS PATTERN: Scattered non-dilated small bowel loops.Nonobstructive pattern. There is a very large amount of stool throughout the colon. SOFT TISSUES: No significant abnormal calcifications. BONES: No significant abnormality. OTHER: No other significant finding. IMPRESSION: Very large amount of stool throughout the colon all the wayto the rectum. THIS IS AN ELECTRONICALLY VERIFIED FINAL REPORT 12/25/2020 4:31 PM - Electronically signed by Keyshawn ABRAHAM: LEIGH Report ID: [id number] Reading Location: [id number] us Wayne Snow MD IMG XR PROCEDURES Final Res ult * XR Wrist Left 3 or More Views (12/25/2020 3:18 PM CDT) Anatomical Region Laterality Modality Upper Extremities, Wrist Left Compute d Radiography 12/25/2020 4:29 PM CDT Narrative 12/25/2020 4:30 PM CDT EXAM DESCRIPTION: ?? XR WRIST LEFT 3 OR MORE VIEWS REASON FOR STUDY: ?? Patient states her left wrist became swollen after having an IV removed. ??Patient initially had diarrhea 1-2 weeks ago and is now having abdominal distention. Duration: 3-4 days TECHNIQUE: ?? Frontal, lateral, and oblique radiographic views acquired of the left wrist. COMPARISON: ?? None FINDINGS: BONES/JOINTS: ??There is no fracture or bone destruction. ??Severe arthritis is seen in the 1st carpometacarpal joint. SOFT TISSUES: ??Diffuse swelling OTHER: ??No other significant finding. IMPRESSION: ?? 1. 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 ??No fracture or bone destruction. 3. ??Diffuse swelling THIS IS AN ELECTRONICALLY VERIFIED FINAL REPORT 12/25/2020 4:30 PM - Electronically signed by Keyshawn ABRAHAM: LEIGH D: ??12/25/2020 4:30 PM T: ??12/25/2020 4:30 PM Report ID: [id number] Reading Location: ??[id number] Procedure Note Ian Cummings MD - 12/25/2020 EXAM DESCRIPTION: XR WRIST LEFT 3 OR MORE VIEWS REASON FOR STUDY: Patient states her left wrist became swollen afterhaving an IV removed. Patient initially had diarrhea 1-2 weeks ago and is nowhaving abdominal distention. Duration: 3-4 days TECHNIQUE: Frontal, lateral, and oblique radiographic views acquired ofthe left wrist. COMPARISON: None FINDINGS: BONES/JOINTS: There is no fracture or bone destruction. Severe arthritisis seen in the 1st carpometacarpal joint. SOFT TISSUES: Diffuse swelling OTHER: No other significant finding. IMPRESSION: 1. 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 No fracture or bone destruction. 3. Diffuse swelling THIS IS AN ELECTRONICALLY VERIFIED FINAL REPORT 12/25/2020 4:30 PM - Electronically signed by Keyshawn Cummings M.D. LEIGH: LEIGH Report ID: [id number] Reading Location: [id number] Wayne Snow MD IMG XR PROCEDURES Final Res ult * (ABNORMAL) POCT glucose (12/25/2020 12:12 PM CDT) Glucose, POC 175(H) 71 - 98 mg/dL MADDI [facility]OFF ([place]) Blood specimen (specimen) 12/25/2020 12:12 PM CDT 12/25/2020 12:12 PM CDT Wayne Snow MD LAB POCT ORDERABLES - DEVIC E Final Result MADDI HOFF ([place]) 1 [facility] [place] [address] * US Carotids Duplex Bilateral (12/25/2020 9:20 AM CDT) Anatomical Region Laterality Modality Vascular Bilateral Ultrasound 12/25/2020 9:26 AM CDT Narrative 12/25/2020 9:30 AM CDT EXAM DESCRIPTION: ?? US CAROTIDS DUPLEX BILATERAL REASON FOR STUDY: ?? Generalized weakness. Rule out stenosis. HTN.Duration: 9 days TECHNIQUE: ??Kraus scale, color Doppler and spectral Doppler imaging were performed. ??Velocity criteria are extrapolated from diameter as defined by the Society of Radiologists in Ultrasound Consensus Conference. All velocity measurements are in cm/sec. COMPARISON: ?? None FINDINGS: Right: Mild intimal thickening and plaque are seen. Distal CCA Peak Systolic Velocity: ??63 Distal CCA End Diastolic Velocity: ??9 Peak ICA Systolic Velocity: ??84 ICA End Diastolic Velocity: ??14 Peak ICA/CCA Systolic Ratio: ??1.32 Right Vertebral Artery: ?? Antegrade direction of flow. Left: Mild intimal thickening and plaque are seen. Distal CCA Peak Systolic Velocity: 62 Distal CCA End Diastolic Velocity: 7 Peak ICA Systolic Velocity: 100 ICA End Diastolic Velocity: 15 Peak ICA/CCA Systolic Ratio: 1.62 Left Vertebral Artery: ?? Antegrade direction of flow. IMPRESSION: ?? 1. ??Velocities correspond to a less than 50percent diameter stenosis of the right ICA. 2. ??Velocities correspond to a less than 50percent diameter stenosis of the left ICA. 3. ?? Antegrade direction of flow of the bilateral vertebral arteries. REFERENCE: ??Consensus Panel Kraus-Scale and Doppler US Criteria for Diagnosis of ICA Stenosis. No stenosis: ICA PSV <125*, 0 percent plaque, ICA/CCA PSV Ratio <2.0, ICA EDV <40*. <50 percent stenosis: ICA PSV <125*, <50 percent plaque, ICA/CCA PSV Ratio <2.0, ICA EDV <40*. 50-69 percent stenosis: ICA PSV 125-230*, >=50 percent plaque, ICA/CCA PSV Ratio 2.0-4.0, ICA EDV 40-100*. >=70 percent but less than near occlusion >230, >=50 percent plaque, ICA/CAA PSV Ratio >4.0, ICA EDV >100*. *cm/sec Plaque estimate (diameter reduction) with kraus-scale and color Doppler US. RSNA 2002 THIS IS AN ELECTRONICALLY VERIFIED FINAL REPORT 12/25/2020 9:30 AM - Electronically signed by Hilario Bolanos M.D. AG: SORAIDA D: ??12/25/2020 9:30 AM T: ??12/25/2020 9:30 AM Report ID: [id number] Reading Location: ??[id number] Procedure Note Hilario Bolanos MD - 12/25/2020 EXAM DESCRIPTION: US CAROTIDS DUPLEX BILATERAL REASON FOR STUDY: Generalized weakness. Rule out stenosis. HTN.Duration:9 days TECHNIQUE: Kraus scale, color Doppler and spectral Doppler imaging were performed. Velocity criteria are extrapolated from diameter as defined bythe Society of Radiologists in Ultrasound Consensus Conference. All velocity measurements are in cm/sec. COMPARISON: None FINDINGS: Right: Mild intimal thickening and plaque are seen. Distal CCA Peak Systolic Velocity: 63 Distal CCA End Diastolic Velocity: 9 Peak ICA Systolic Velocity: 84 ICA End Diastolic Velocity: 14 Peak ICA/CCA Systolic Ratio: 1.32 Right Vertebral Artery: Antegrade direction of flow. Left: Mild intimal thickening and plaque are seen. Distal CCA Peak Systolic Velocity: 62 Distal CCA End Diastolic Velocity: 7 Peak ICA Systolic Velocity: 100 ICA End Diastolic Velocity: 15 Peak ICA/CCA Systolic Ratio: 1.62 Left Vertebral Artery: Antegrade direction of flow. IMPRESSION: 1. Velocities correspond to a less than 50percent diameter stenosis ofthe right ICA. 2. Velocities correspond to a less than 50percent diameter stenosis ofthe left ICA. 3. Antegrade direction of flow of the bilateral vertebral arteries. REFERENCE: Consensus Panel Kraus-Scale and Doppler US Criteria forDiagnosis of ICA Stenosis. No stenosis: ICA PSV <125*, 0 percent plaque, ICA/CCA PSV Ratio <2.0, ICAEDV <40*. <50 percent stenosis: ICA PSV <125*, <50 percent plaque, ICA/CCA PSV Ratio <2.0, ICA EDV <40*. 50-69 percent stenosis: ICA PSV 125-230*, >=50 percent plaque, ICA/CCA PSV Ratio 2.0-4.0, ICA EDV 40-100*. >=70 percent but less than near occlusion >230, >=50 percent plaque,ICA/CAA PSV Ratio >4.0, ICA EDV >100*. *cm/sec Plaque estimate (diameter reduction) with kraus-scale and color DopplerUS. RSNA 2002 THIS IS AN ELECTRONICALLY VERIFIED FINAL REPORT 12/25/2020 9:30 AM - Electronically signed by Hilario Bolanos M.D. AG: SORAIDA Report ID: [id number] Reading Location: [id number] us Wayne Snow MD IMG US PROCEDURES Final Res ult * (ABNORMAL) POCT glucose (12/25/2020 8:10 AM CDT) Pathologist [facility] Glucose, POC 117(H) 71 - 98 mg/dL [facility] ([place]) Blood specimen (specimen) 12/25/2020 8:10 AM CDT 12/25/2020 8:10 AM CDT us Wayne Snow MD LAB POCT ORDERABLES - DEVIC E Final Result Performing Organization Address City/State/[facility] Co de Phone Number [facility] ([place]) 1 [facility] [place] [address] * (ABNORMAL) CBC without differential (12/25/2020 5:46 AM CDT) Pathologist [facility] WBC 9.6 3.8 - 9.9 K/cumm [facility] ([place]) Hgb 8.9(L) 11.9 - 15.5 g/dL [facility] ([place] Hct 32.0(L) 35.6 - 45.5 % [facility] ([place] Plt 264 150 - 400 K/cumm [facility] ([place]) MPV 10.1 9.1 - 12.3 fL [facility] ([place] RBC 3.94 3.90 - 5.20 M/cumm [facility] ([place]) MCV 81.2(L) 81.3 - 96.4 fL [facility] ([place]) MCH 22.6(L) 27.1 - 33.3 pg [facility] ([place]) MCHC 27.8(L) 32.3 - 35.7 g/dL [facility] ([place] RDW CV 20.4(H) 11.1 - 14.9 % [facility] ([place]) RDW SD 57.1(H) 35.7 - 48.1 fL [facility] ([place]) NRBC abs 0.02(H) 0.00 - 0.01 K/cumm [facility] ([place]) Blood specimen (specimen) 12/25/2020 5:46 AM CDT 12/25/2020 5:52 AM CDT Wayne Snow MD LAB BLOOD ORDERABLES Final Result MADDI [facility]OFF ([place]) 1 [facility] [place] [place] [address] * (ABNORMAL) POCT glucose (12/25/2020 3:05 AM CDT) Glucose, POC 121(H) 71 - 98 mg/dL [facility] ([place]) Blood specimen (specimen) 12/25/2020 3:05 AM CDT 12/25/2020 3:05 AM CDT Wayne Snow MD LAB POCT ORDERABLES - DEVIC E Final Result Performing Organization Address [facility] Co de Phone Number MADDI HOFF ([place]) 1 [facility] [place] [address] * (ABNORMAL) POCT glucose (12/24/2020 8:56 PM CDT) Glucose, POC 160(H) 71 - 98 mg/dL [facility] ([place]) Blood specimen (specimen) 12/24/2020 8:56 PM CDT 12/24/2020 8:56 PM CDT Wayne Snow MD LAB POCT ORDERABLES - DEVIC E Final Result Performing Organization Address City/[facility]/ZIP Co de Phone Number MADDI HOFF ([place]) 1 [facility] [place] [place] [address] * (ABNORMAL) POCT glucose (12/24/2020 4:36 PM CDT) Glucose, POC 142(H) 71 - 98 mg/dL [facility] ([place]) Blood specimen (specimen) 12/24/2020 4:36 PM CDT 12/24/2020 4:36 PM CDT us Wayne Snow MD LAB POCT ORDERABLES - DEVIC E Final Result Performing Organization Address City/[facility]/ZIP Co de Phone Number MADDI HOFF ([place]) 1 [facility] [place] [address] * (ABNORMAL) POCT glucose (12/24/2020 12:22 PM CDT) Glucose, POC 160(H) 71 - 98 mg/dL [facility] ([place]) Blood specimen (specimen) 12/24/2020 12:22 PM CDT 12/24/2020 12:22 PM CDT us Wayne Snow MD LAB POCT ORDERABLES - DEVIC E Final Result Performing Organization Address [facility] de Phone Number MADDI HOFF ([place]) 1 [facility] [place] [address] * (ABNORMAL) POCT glucose (12/24/2020 8:00 AM CDT) Glucose, POC 124(H) 71 - 98 mg/dL [facility] ([place]) Blood specimen (specimen) 12/24/2020 8:00 AM CDT 12/24/2020 8:00 AM CDT us Wayne Snow MD LAB POCT ORDERABLES - DEVIC E Final Result Performing Organization Address City/[facility] Co de Phone Number MADDI HOFF ([place]) 1 [facility] [place] [address] * (ABNORMAL) POCT glucose (12/24/2020 7:34 AM CDT) Glucose, POC 137(H) 71 - 98 mg/dL [facility] ([place]) Blood specimen (specimen) 12/24/2020 7:34 AM CDT 12/24/2020 7:34 AM CDT Wayne Snow MD LAB POCT ORDERABLES - DEVIC E Final Result Performing Organization Address City/[facility]/ZIP Co de Phone Number MADDI HOFF ([place]) 1 [facility] [place] [address] * T4, free (12/24/2020 4:43 AM CDT) [facility] Free T4 1.30 0.90 - 1.70 ng/dL MADDI [facility]OFF ([place]) Blood specimen (specimen) 12/24/2020 4:43 AM CDT 12/24/2020 8:05 AM CDT Narrative M[facility]DI [facility]OFF ([place]) - 12/24/2020 9:05 AM CDT This test was reflexed from a TSH result. Wayne Snow MD LAB BLOOD ORDERABLES Final Result Performing Organization Address [facility] Co de Phone Number MADDI HOFF ([place]) 1 [facility] [place] [address] * (ABNORMAL) TSH reflex to free T4 (12/24/2020 4:43 AM CDT) [facility] TSH 5.72(H) 0.30 - 4.20 mcIUnit/mL MD[facility]I [facility] ([place]) Blood specimen (specimen) 12/24/2020 4:43 AM CDT 12/24/2020 8:05 AM CDT us Wayne Snow MD LAB BLOOD ORDERABLES Final Result Performing Organization Address City/[facility]/ZIP Co de Phone Number MADDI [facility]OFF ([place]) 1 [facility] [place] [address] * eGFR (12/24/2020 4:43 AM CDT) eGFR 84 mL/min/1.7 3 m2 [facility] ([place]LLA) Comment: Interpretive Data Reference Interval Normal [...] interpretive data was last reviewed 2020 Blood specimen (specimen) 12/24/2020 4:43 AM CDT 12/24/2020 5:22 AM CDT us Wayne Snow MD LAB BLOOD ORDERABLES Final Result MADDI [facility]OFF ([place]) 1 [facility] [place] [address] * (ABNORMAL) Basic metabolic panel (12/24/2020 4:43 AM CDT) Sodium 138 135 - 145 mmol/L [facility] ([place]) Potassium, pl 4.4 3.3 - 4.9 mmol/L [facility] ([place]) Chloride 111(H) 97 - 110 mmol/L [facility] ([place]) CO2 21(L) 22 - 32 mmol/L [facility] ([place]) Anion gap 7 2 - 15 mmol/L [facility] ([place]) BUN 13 8 - 25 mg/dL [facility] ([place]) Creatinine 0.62 0.60 - 1.10 mg/dL [facility] ([place]) Glucose 121 70 - 199 mg/dL [facility] (ARABELLA) Comment: Interpretive Data Fasting glucose [...] interpretive data was last revised 2017. Calcium 8.9 8.5 - 10.3 mg/dL [facility] (ARABELLA) Blood specimen (specimen) 12/24/2020 4:43 AM CDT 12/24/2020 5:22 AM CDT Wayne Snow MD LAB BLOOD ORDERABLES Final Result Performing Organization Address City/[facility]/ZIP Co de Phone Number MADDI HOFF ([place]) 1 [facility] [address] * Phosphorus (12/24/2020 4:43 AM CDT) Phosphorus, pl 2.4 2.3 - 4.5 mg/dL [facility] (ARABELLA) Blood specimen (specimen) 12/24/2020 4:43 AM CDT 12/24/2020 5:22 AM CDT Wayne Snow MD LAB BLOOD ORDERABLES Final Result M[facility] ([place]) 1 [facility] [address] * (ABNORMAL) CBC without differential (12/24/2020 4:43 AM CDT) Pathologist [facility] WBC 8.7 3.8 - 9.9 K/cumm [facility] ([place]) Hgb 8.6(L) 11.9 - 15.5 g/dL [facility] ([place]) Hct 30.5(L) 35.6 - 45.5 % [facility] ([place]) Plt 273 150 - 400 K/cumm [facility] ([place]) MPV 10.5 9.1 - 12.3 fL [facility] ([place]) RBC 3.78(L) 3.90 - 5.20 M/cumm [facility] ([place]) MCV 80.7(L) 81.3 - 96.4 fL [facility] ([place]) MCH 22.8(L) 27.1 - 33.3 pg [facility] ([place]) MCHC 28.2(L) 32.3 - 35.7 g/dL [facility] ([place]) RDW CV 19.6(H) 11.1 - 14.9 % [facility] ([place]) RDW SD 55.0(H) 35.7 - 48.1 fL [facility] ([place]) NRBC abs 0.02(H) 0.00 - 0.01 K/cumm [facility] ([facility] Blood specimen (specimen) 12/24/2020 4:43 AM CDT 12/24/2020 5:25 AM CDT us Wayne Snow MD LAB BLOOD ORDERABLES Final Result [facility] ([place]) 1 [facility] [place] [address] * (ABNORMAL) POCT glucose (12/24/2020 2:19 AM CDT) Glucose, POC 143(H) 71 - 98 mg/dL [facility] (ARABELLA) Blood specimen (specimen) 12/24/2020 2:19 AM CDT 12/24/2020 2:19 AM CDT us Wayne Snow MD LAB POCT ORDERABLES - DEVIC E Final Result Performing Organization Address City/[facility]/ZIP Co de Phone Number MADDI GOLDMAN) [address] [place] [address] * (ABNORMAL) POCT glucose (12/23/2020 9:08 PM CDT) Glucose, POC 140(H) 71 - 98 mg/dL [facility] ([place]) Blood specimen (specimen) 12/23/2020 9:08 PM CDT 12/23/2020 9:08 PM CDT us Wayne Snow MD LAB POCT ORDERABLES - DEVIC E Final Result Performing Organization Address [facility] Co de Phone Number M[facility]DI HOFF ([place]) 1 [facility] [place] [address] * (ABNORMAL) POCT glucose (12/23/2020 5:10 PM CDT) Glucose, POC 123(H) 71 - 98 mg/dL [facility] ([place]) Blood specimen (specimen) 12/23/2020 5:10 PM CDT 12/23/2020 5:10 PM CDT us Wayne Snow MD LAB POCT ORDERABLES - DEVIC E Final Result Performing Organization Address City/[facility] Co de Phone Number MADDI HOFF ([place]) 1 [place] [address] * (ABNORMAL) POCT glucose (12/23/2020 11:45 AM CDT) Glucose, POC 183(H) 71 - 98 mg/dL [facility] ([place]) Blood specimen (specimen) 12/23/2020 11:45 AM CDT 12/23/2020 11:45 AM CDT Wayne Snow MD LAB POCT ORDERABLES - DEVIC E Final Result M[facility] ([place]) 1 [facility] [place] [address] * (ABNORMAL) POCT glucose (12/23/2020 8:33 AM CDT) Glucose, POC 114(H) 71 - 98 mg/dL [facility] ([place]) Blood specimen (specimen) 12/23/2020 8:33 AM CDT 12/23/2020 8:33 AM CDT Wayne Snow MD LAB POCT ORDERABLES - DEVIC E Final Result Performing Organization Address City/[facility]/ZIP Co de Phone Number MADDI HOFF ([place]) 1 [facility] [place] [address] * eGFR (12/23/2020 5:09 AM CDT) eGFR 86 mL/min/1.7 3 m2 [facility] ([place]) Comment: Interpretive Data Reference Interval Normal ?>/= [...] interpretive data was last reviewed 2020 Blood specimen (specimen) 12/23/2020 5:09 AM CDT 12/23/2020 5:35 AM CDT us Neeta Patel MD LAB BLOOD ORDERABLES Final Result [facility] ([place]) 1 [facility] [place] [address] * (ABNORMAL) Differential, auto (12/23/2020 5:09 AM CDT) Neutrophil abs 4.7 1.7 - 6.5 K/cumm [facility] ([place]) Imm gran abs 0.1 0.0 - 0.1 K/cumm [facility] ([place]) Lymphocyte abs 1.3 0.8 - 3.3 K/cumm [facility] ([place]) Monocyte abs 1.4(H) 0.2 - 0.8 K/cumm [facility] ([place]) Eosinophil abs 0.3 0.0 - 0.5 K/cumm [facility] ([place]) Basophil abs 0.1 0.0 - 0.1 K/cumm [facility] ([place]) Neutrophil pct 59.5 % [facility] (ARABELLA) Comment: Interpretive Data Percent cell count reference ranges are not reported, since discordance with absolute values may lead to misinterpretation of CBC data. Current Interpretive Data was last revised on 2017. Imm gran pct 1.1 % [facility] ([place]) Comment: Interpretive Data Percent cell count reference ranges are not reported, since discordance with absolute values may lead to misinterpretation of CBC data. Current Interpretive Data was last revised on 2017. Lymphocyte pct 16.7 % [facility] (ARABELLA) Comment: Interpretive Data Percent cell count reference ranges are not reported, since discordance with absolute values may lead to misinterpretation of CBC data. Current Interpretive Data was last revised on 2017. Monocyte pct 17.5 % [facility] ([place]) Comment: Interpretive Data Percent cell count reference ranges are not reported, since discordance with absolute values may lead to misinterpretation of CBC data. Current Interpretive Data was last revised on 2017. Eosinophil pct 4.3 % [facility] ([place]) Comment: Interpretive Data Percent cell count reference ranges are not reported, since discordance with absolute values may lead to misinterpretation of CBC data. Current Interpretive Data was last revised on 2017. Basophil pct 0.9 % [facility] ([place]) Comment: Interpretive Data Percent cell count reference ranges are not reported, since discordance with absolute values may lead to misinterpretation of CBC data. Current Interpretive Data was last revised on 2017. Blood specimen (specimen) 12/23/2020 5:09 AM CDT 12/23/2020 5:35 AM CDT Neeta Patel MD LAB BLOOD ORDERABLES Final Result [facility] ([place]) 1 [facility] Department [place] [address] * (ABNORMAL) Renal function panel (12/23/2020 5:09 AM CDT) Sodium 139 135 - 145 mmol/L [facility] ([place]) Potassium, pl 4.1 3.3 - 4.9 mmol/L [facility] Chloride 107 97 - 110 mmol/L [facility] ([place] CO2 21(L) 22 - 32 mmol/L [facility] Anion gap 10 2 - 15 mmol/L [facility]) BUN 15 8 - 25 mg/dL [facility] ([place]) Creatinine 0.58(L) 0.60 - 1.10 mg/dL [facility] ([place]) Glucose 104 70 - 199 mg/dL [facility] Comment: Interpretive Data Fasting glucose [...] interpretive data was last revised 2017. Calcium 9.1 8.5 - 10.3 mg/dL [facility] ([place]) Phosphorus, pl 2.1(L) 2.3 - 4.5 mg/dL [facility] ([place]) Albumin 3.6 3.5 - 5.0 g/dL [facility] ([place]) Blood specimen (specimen) 12/23/2020 5:09 AM CDT 12/23/2020 5:35 AM CDT Neeta Patel MD LAB BLOOD ORDERABLES Final Result [facility] ([place]) 1 [facility] [place] [address] * (ABNORMAL) CBC with auto differential (12/23/2020 5:09 AM CDT) WBC 7.9 3.8 - 9.9 K/cumm [facility] ([place]) Hgb 9.1(L) 11.9 - 15.5 g/dL [facility] ([place]) Hct 31.8(L) 35.6 - 45.5 % [facility] ([place]) Plt 254 150 - 400 K/cumm [facility] ([place]) MPV 10.7 9.1 - 12.3 fL [facility] ([place]) RBC 3.95 3.90 - 5.20 M/cumm [facility] ([place]) MCV 80.5(L) 81.3 - 96.4 fL [facility] ([place]) MCH 23.0(L) 27.1 - 33.3 pg [facility] ([place]) MCHC 28.6(L) 32.3 - 35.7 g/dL [facility] ([place]) RDW CV 18.7(H) 11.1 - 14.9 % [facility] ([place]) RDW SD 53.1(H) 35.7 - 48.1 fL [facility] ([place]) NRBC abs 0.04(H) 0.00 - 0.01 K/cumm [facility] ([place]) Blood specimen (specimen) 12/23/2020 5:09 AM CDT 12/23/2020 5:35 AM CDT us Neeta Patel MD LAB BLOOD ORDERABLES Final Result Performing Organization Address [facility]/ZIP Co de Phone Number [facility] ([place]) 1 [place] [address] * Folate (12/23/2020 5:09 AM CDT) Folic acid >20.0 >=5.0 ng/mL [facility] ([place]) Comment: Hemolysis present. ??Results may be affected. Testing performed by: [facility], [address] [place] [address]., [id number] Blood specimen (specimen) 12/23/2020 5:09 AM CDT 12/23/2020 5:58 PM CDT us Wayne Snow MD LAB BLOOD ORDERABLES Final Result Performing Organization Address [facility] Co de Phone Number [facility] ([place]) 1 [place] [address] * (ABNORMAL) POCT glucose (12/23/2020 2:00 AM CDT) Glucose, POC 128(H) 71 - 98 mg/dL [facility] ([place]) Blood specimen (specimen) 12/23/2020 2:00 AM CDT 12/23/2020 2:00 AM CDT Wayne Snow MD LAB POCT ORDERABLES - DEVIC E Final Result Performing Organization Address City/[facility]/ZIP Co de Phone Number [facility] ([place]) 1 [place] [address] * (ABNORMAL) POCT glucose (12/22/2020 8:50 PM CDT) Glucose, POC 165(H) 71 - 98 mg/dL [facility] ([place]) Blood specimen (specimen) 12/22/2020 8:50 PM CDT 12/22/2020 8:50 PM CDT Wayne Snow MD LAB POCT ORDERABLES - DEVIC E Final Result Performing Organization Address City/[facility]/ZIP Co de Phone Number [facility] ([place]) [address] [place] [address] * (ABNORMAL) POCT glucose (12/22/2020 5:16 PM CDT) Glucose, POC 116(H) 71 - 98 mg/dL [facility] ([place]) Blood specimen (specimen) 12/22/2020 5:16 PM CDT 12/22/2020 5:16 PM CDT Wayne Snow MD LAB POCT ORDERABLES - DEVIC E Final Result Performing Organization Address City/[facility]/ZIP Co de Phone Number [facility] ([place]) [address] [place] [address] * Surgical pathology (12/22/2020 1:17 PM CDT) Tissue (Polyp(s), colon/colorectal, esophageal, gastric) 12/22/2020 11:36 AM CDT Tissue (EG Junction, Biopsy) 12/22/2020 11:36 AM CDT Narrative PATHOLOGY [facility] ([place]) - 12/25/2020 2:15 PM CDT EPIC results best viewed via link to PDF [facility] Department of Pathology [address] [place] [id number] Note to Patients: This report may contain a detailed description of human tissue sent by a health care provider to the laboratory for pathologic evaluation. The content of this report is essential for diagnosis and may provide important critical findings. This information may be unfamiliar to patients to review without a medical professional present. It is advised that the patient review this report in the presence of a health care provider who can answer questions and explain the details. Final Report Patient Name: ??LOC ANDERSON Address: ??[address], ??[place], [place] ??[address] Gender: ??F : ??1940 (Age: 80) Service: ??Medical Location: ??[facility] Hospital #: ??[id number] Patient Type: ??[facility] Accession # ?[id number] Taken: ??12/22/2020 Received: ??12/22/2020 Accessioned: ??12/22/2020 Reported: ??12/25/2020 Physician(s):Dr. Neeta Patel M.D. Diagnosis: A. ??Gastric, biopsy: ? - Fundic gland polyp fragments. - No evidence of dysplasia or malignancy. - Negative Helicobacter immunostain. B. ??Gastroesophageal junction, biopsy: ? - Squamous mucosa with basal hyperplasia, elongation of papillae, focal parakeratosis, and rare intraepithelial eosinophils (see microscopic description). - Cardiac-type mucosa with chronic focally active inflammation. ? - No evidence of intestinal metaplasia, dysplasia, or malignancy. Duane King MD Report Electronically Reviewed and Signed Out By ??Duane King MD ??12/25/2020 14:15:52 Specimen(s) Received: A: Gastric polyp biopsy B: GE Junction Biopsy Microscopic Description: A. ??Microscopic examination shows three polypoid fragments of fundic-type mucosa with dilation of gastric pits consistent with fundic gland polyp fragments. ??There is no evidence of dysplasia or malignancy. ??No definitive Helicobacter organisms are identified on routine H&E staining. ??A Helicobacter immunostain is performed with appropriately reactive controls on block A1 and is negative. B. ??Microscopic examination shows squamous mucosa with basal hyperplasia, elongation of papillae, focal parakeratosis, and rare intraepithelial eosinophils numbering up to four per high power field. ??Cardiac-type mucosa with chronic focally active inflammation is also seen. ??There is no evidence of intestinal metaplasia, dysplasia, or malignancy. ??No definitive Helicobacter organisms are seen on routine H&E staining. ??A Helicobacter immunostain is performed with appropriately reactive controls on block B1 and is negative. The aforementioned findings are not entirely specific as rare intraepithelial eosinophils may be seen in the setting of reflux esophagitis as well as eosinophilic esophagitis. ??Nevertheless, the quantity of eosinophils seen, in concert with basal hyperplasia, elongation of papillae, and focal parakeratosis, is more suggestive of reflux esophagitis. ??Clinical correlation is recommended. Clinical History: Anemia. ??Occult blood in stools. ??EGD. ?? Gross Description: The specimen is submitted in two containers labeled Loc Anderson . A. ??The first container is labeled gastric polyp . ??It is three ayala tissue fragments measuring 1 mm. ??All in A. B. ??The second container is labeled GE junction . ??It is two ayala tissue fragments measuring 1 mm. ??All in B. ??Noah Sotelo M.D./Conchis Cheatham REPORT IMAGES AND SCANNED DOCUMENTS, IF INCLUDED, ONLY VIEWABLE IN PDF VERSION OF REPORT The performance characteristics of some immunohistochemical stains, fluorescence in-situ hybridization tests and immunophenotyping by flow cytometry cited in this report (if any) were determined by the Surgical Pathology Department at [facility] as part of an ongoing customer quality engineer program and in compliance with federally mandated regulations drawn from the Clinical Laboratory Improvement Act of 1988 (CLIA '88). ??Some of these tests rely on the use of analyte specific reagents and are subject to specific labeling requirements by the US Food and Drug Administration. ??Such diagnostic tests may only be performed in a facility that is certified by the Department of Health and Human Services as a high complexity laboratory under CLIA '88. The FDA has determined that such clearance or approval is not necessary. ??This test is used for clinical purposes. ??It should not be regarded as investigational or for research. ??Nevertheless, federal rules concerning the medical use of analyte specific reagents require that the following disclaimer be attached to the report: This test was developed and its performance characteristics determined by the Surgical Pathology Department [facility]. ??It has not been cleared or approved by the U. S. Food and Drug Administration. us Neeta Patel MD LAB PATHOLOGY ORDERABLES F inal Result Performing Organization Address [facility]/State/ZIP Co de Phone Number PATHOLOGY [facility] ([place]) 1 [place] [address] * H. pylori urease screen (MAIA test) Tissue (12/22/2020 11:41 AM CDT) H. pylori, rapid (MAIA) Negative Negative [facility] ([place]) Tissue 12/22/2020 11:4 1 AM CDT 12/23/2020 8:20 AM CDT us Neeta Patel MD LAB MICROBIOLOGY - GENERAL ORDERABLES Final Result Performing Organization Address [facility] Co de Phone Number [facility] [address] [place] [address] [place] [address] * (ABNORMAL) POCT glucose (12/22/2020 11:18 AM CDT) Glucose, POC 109(H) 71 - 98 mg/dL [facility] ([place]) Blood specimen (specimen) 12/22/2020 11:18 AM CDT 12/22/2020 11:18 AM CDT us Wayne Snow MD LAB POCT ORDERABLES - DEVIC E Final Result Performing Organization Address [facility] Co de Phone Number [facility] ([place]) 1 [facility] [place] [address] * EGD (12/22/2020 11:16 AM CDT) Anatomical Region Laterality Modality Other Narrative Procedure Note Neeta Patel MD - 12/22/2020 11:16 AM CDT [facility] Patient Name: Loc Anderson Procedure Date: 12/22/2020 11:16 AM Date of : 1940 Admit Type: Inpatient Age: 80 Gender: Female Attending MD: Neeta Patel M.D. Room: [facility] ENDOSCOPY ROOM 1 Note Status: Finalized Patient Profile: This is an 80 year old female. Patient admittedwith urine tract infection and the significant new onset anemia. Stool occult blood testing positive. Colonoscopy 2019 was unremarkable. Procedure: Upper GI endoscopy Indications: Iron deficiency anemia, Occult blood in stool Referring MD: Destiney Camargo MD Providers: Neeta Patel M.D. Impression: - Normal examined duodenum. - Erythematous mucosa in the antrum, nonspecific finding. Biopsied for MAIA. - Multiple benign-appearing gastric polyps.Biopsied. - Z-line irregular, 40 cm from the incisors.Biopsied. Recommendation: - Await pathology results. - Use Protonix (pantoprazole) 40 mg PO daily. - No further GI workup is needed. Check folatelevel. Iron replacement. Medicines: Monitored Anesthesia Care Complications: No immediate complications. Estimated Blood Loss: Estimated blood loss: none. Procedure: Pre-Anesthesia Assessment: - Prior to the procedure, a History and Physicalwas performed, and patient medications and allergieswere reviewed. The patient's tolerance of previous anesthesia was also reviewed. The risks andbenefits of the procedure and the sedation options and risks were discussed with the patient. All questions were answered, and informed consent was obtained. Prior Anticoagulants: The patient has taken Eliquis (apixaban), last dose was day of procedure. ASAGrade Assessment: III - A patient with severe systemic disease. After reviewing the risks and benefits,the patient was deemed in satisfactory condition to undergo the procedure. The benefits, risks, and alternatives to theprocedure and sedation were discussed and informed consentwas obtained. The scope was passed under direct vision. The Endoscope GIF-H190 [id number] was introduced through the mouth, and advanced to the second partof duodenum. The upper GI endoscopy was accomplished without difficulty. The patient tolerated the procedure well. Findings: The examined duodenum was normal. Mucosal pattern was normal. Noblood noted in the upper GI system. Diffuse mildly erythematous mucosa without bleeding was found in the gastric antrum. Biopsies were taken with a cold forceps forHelicobacter pylori testing using CLOtest. No ulcers and no erosions. Multiple 5 to 15 mm sessile polyps with no stigmata of recentbleeding were found in the gastric body. All the visualized polyps has benign appearance and suggestive of fundic gland polyps. These were notedthe gastric body and fundus. Biopsies were taken with a cold forceps for histology. The Z-line was irregular and was found 40 cm from the incisors with short 15 mm segment of erythema on 1 side.. Biopsies were taken witha cold forceps for histology. The esophagus body was unremarkable. Electronically signed by Neeta Patel M.D. Neeta Patel M.D. 12/22/2020 11:48:06 AM Number of Addenda: 0 Note Initiated On: 12/22/2020 11:16 AM Procedure Code(s): --- Professional --- 69476, Esophagogastroduodenoscopy, flexible, transoral; with biopsy, single or multiple Diagnosis Code(s): --- Professional --- K31.89, Other diseases of stomach and duodenum K31.7, Polyp of stomach and duodenum K22.8, Other specified diseases of esophagus D50.9, Iron deficiency anemia, unspecified R19.5, Other fecal abnormalities CPT copyright 2019 [employer]. All rights reserved. The codes documented in this report are preliminary and upon apprentice carpenter reviewmay be revised to meet current compliance requirements. Recognized by the [employer] for promoting quality in endoscopy Neeta Patel MD ENDOSCOPY PROCEDURES Final Result * POCT glucose (12/22/2020 8:24 AM CDT) Glucose, POC 96 71 - 98 mg/dL [facility] ([place]) Blood specimen (specimen) 12/22/2020 8:24 AM CDT 12/22/2020 8:24 AM CDT Wayne Snow MD LAB POCT ORDERABLES - DEVIC E Final Result [facility] ([place]) 1 [facility] Department of Laboratories [place], [place] [id number] * eGFR (12/22/2020 4:23 AM CDT) eGFR 81 mL/min/1.7 3 m2 [facility] ([place]) Comment: Interpretive Data [...] interpretive data was last reviewed 2020 Blood specimen (specimen) 12/22/2020 4:23 AM CDT 12/22/2020 5:03 AM CDT Julio Mccabe MD LAB BLOOD ORDERABLES Final Result [facility] ([place]) 1 [facility] Department [place] [address] * (ABNORMAL) Differential, auto (12/22/2020 4:23 AM CDT) Neutrophil abs 5.5 1.7 - 6.5 K/cumm [facility] ([place]) Imm gran abs 0.1 0.0 - 0.1 K/cumm [facility] ([place]) Lymphocyte abs 1.2 0.8 - 3.3 K/cumm [facility] ([place]) Monocyte abs 1.8(H) 0.2 - 0.8 K/cumm [facility] ([place]) Eosinophil abs 0.3 0.0 - 0.5 K/cumm [facility] ([place]) Basophil abs 0.0 0.0 - 0.1 K/cumm [facility] ([place]) Neutrophil pct 61.7 % [facility] ([place]) Comment: Interpretive Data Percent cell count reference ranges are not reported, since discordance with absolute values may lead to misinterpretation of CBC data. Current Interpretive Data was last revised on 2017. Imm gran pct 1.6 % [facility] ([place]) Comment: Interpretive Data Percent cell count reference ranges are not reported, since discordance with absolute values may lead to misinterpretation of CBC data. Current Interpretive Data was last revised on 2017. Lymphocyte pct 13.2 % [facility] ([place]) Comment: Interpretive Data Percent cell count reference ranges are not reported, since discordance with absolute values may lead to misinterpretation of CBC data. Current Interpretive Data was last revised on 2017. Monocyte pct 19.8 % [facility] ([place]) Comment: Interpretive Data Percent cell count reference ranges are not reported, since discordance with absolute values may lead to misinterpretation of CBC data. Current Interpretive Data was last revised on 2017. Eosinophil pct 3.3 % [facility] ([place]) Comment: Interpretive [...] Data was last revised on 2017. Blood specimen (specimen) 12/22/2020 4:23 AM CDT 12/22/2020 5:03 AM CDT Julio Mccabe MD LAB BLOOD ORDERABLES Final Result [facility] ([place]) 1 [facility] [place] [address] * (ABNORMAL) Renal function panel (12/22/2020 4:23 AM CDT) Sodium 139 135 - 145 mmol/L [facility] ([place]) Potassium, pl 4.0 3.3 - 4.9 mmol/L [facility] ([place]) Chloride 106 97 - 110 mmol/L [facility]) CO2 25 22 - 32 mmol/L [facility] ([place]) Anion gap 8 2 - 15 mmol/L [facility] ([place]) BUN 19 8 - 25 mg/dL [facility] ([place]) Creatinine 0.68 0.60 - 1.10 mg/dL [facility] ([place]) Glucose 97 70 - 199 mg/dL [facility] ([place]) [...] interpretive data was last revised 2017. Calcium 9.5 8.5 - 10.3 mg/dL [facility] ([place]) Phosphorus, pl 2.1(L) 2.3 - 4.5 mg/dL [facility] ([place]) Albumin 3.6 3.5 - 5.0 g/dL [facility] ([place]) Blood specimen (specimen) 12/22/2020 4:23 AM CDT 12/22/2020 5:03 AM CDT us Neeta Patel MD LAB BLOOD ORDERABLES Final Result [facility] ([place]) 1 [facility] Department of Laboratories [place], [place] [id number] * (ABNORMAL) CBC with auto differential (12/22/2020 4:23 AM CDT) WBC 9.0 3.8 - 9.9 K/cumm [facility] ([place]) Hgb 8.2(L) 11.9 - 15.5 g/dL [facility] ([place]) Hct 28.3(L) 35.6 - 45.5 % [facility] ([place]) Plt 281 150 - 400 K/cumm [facility] ([place]) MPV 10.2 9.1 - 12.3 fL [facility] ([place]) RBC 3.56(L) 3.90 - 5.20 M/cumm [facility] ([place]) MCV 79.5(L) 81.3 - 96.4 fL [facility] ([place]) MCH 23.0(L) 27.1 - 33.3 pg [facility] ([place]) MCHC 29.0(L) 32.3 - 35.7 g/dL [facility] ([place]) RDW CV 18.1(H) 11.1 - 14.9 % [facility] ([place]) RDW SD 51.8(H) 35.7 - 48.1 fL [facility] ([place]) NRBC abs 0.04(H) 0.00 - 0.01 K/cumm [facility] ([place]) Blood specimen (specimen) 12/22/2020 4:23 AM CDT 12/22/2020 5:03 AM CDT us Neeta Paetl MD LAB BLOOD ORDERABLES Final Result Performing Organization Address City/[facility]/ZIP Co de Phone Number [facility] ([place]) 1 [facility] [place] [address] * (ABNORMAL) Vitamin B12 (12/22/2020 4:23 AM CDT) Vitamin B12 1,571(H) 230 - 1,250 pg/mL [facility] ([place]) Comment:Testing performed by : [facility], [address] [place] [address]., [phone] Blood specimen (specimen) 12/22/2020 4:23 AM CDT 12/22/2020 9:46 AM CDT us Wayne Snow MD LAB BLOOD ORDERABLES Final Result [facility] ([place]) 1 [facility] [place] [address] * (ABNORMAL) POCT glucose (12/22/2020 2:02 AM CDT) Glucose, POC 120(H) 71 - 98 mg/dL [facility] ([place]) Blood specimen (specimen) 12/22/2020 2:02 AM CDT 12/22/2020 2:02 AM CDT us Wayne Snow MD LAB POCT ORDERABLES - DEVIC E Final Result [facility] ([place]) 1 [facility] [place] [address] * (ABNORMAL) POCT glucose (12/21/2020 9:08 PM CDT) Glucose, POC 167(H) 71 - 98 mg/dL [facility] ([place]) Blood specimen (specimen) 12/21/2020 9:08 PM CDT 12/21/2020 9:08 PM CDT Wayne Snow MD LAB POCT ORDERABLES - DEVIC E Final Result Performing Organization Address City/[facility]/ZIP Co de Phone Number [facility] ([place]) 1 [facility] [place] [address] * (ABNORMAL) CBC without differential (12/21/2020 6:11 PM CDT) WBC 11.5(H) 3.8 - 9.9 K/cumm [facility] Hgb 8.9(L) 11.9 - 15.5 g/dL [facility] ([place]) Hct 29.7(L) 35.6 - 45.5 % [facility] ([place]) Plt 317 150 - 400 K/cumm [facility] ([place]) MPV 10.0 9.1 - 12.3 fL [facility] ([place]) RBC 3.76(L) 3.90 - 5.20 M/cumm [facility] MCV 79.0(L) 81.3 - 96.4 fL [facility] ([place]) MCH 23.7(L) 27.1 - 33.3 pg [facility] ([place]) MCHC 30.0(L) 32.3 - 35.7 g/dL [facility] ([place]) RDW CV 17.8(H) 11.1 - 14.9 % [facility] ([place]) RDW SD 49.5(H) 35.7 - 48.1 fL [facility] ([place]) NRBC abs 0.06(H) 0.00 - 0.01 K/cumm [facility] ([place]) Blood specimen (specimen) 12/21/2020 6:11 PM CDT 12/21/2020 6:13 PM CDT Wayne Snow MD LAB BLOOD ORDERABLES Final Result Performing Organization Address City/[facility]/ZIP Co de Phone Number [facility] ([place]) 1 [facility] [place] [address] * (ABNORMAL) POCT glucose (12/21/2020 5:33 PM CDT) Glucose, POC 152(H) 71 - 98 mg/dL [facility] ([place]) Blood specimen (specimen) 12/21/2020 5:33 PM CDT 12/21/2020 5:33 PM CDT Wayne Snow MD LAB POCT ORDERABLES - DEVIC E Final Result Performing Organization Address [facility] de Phone Number [facility] ([place]) 1 [facility] [place] [address] * (ABNORMAL) POCT glucose (12/21/2020 12:33 PM CDT) Glucose, POC 121(H) 71 - 98 mg/dL [facility] ([place]) Blood specimen (specimen) 12/21/2020 12:33 PM CDT 12/21/2020 12:33 PM CDT Wayne Snow MD LAB POCT ORDERABLES - DEVIC E Final Result Performing Organization Address City/[facility]/ZIP Co de Phone Number [facility] ([place]) 1 [facility] [place] [address] * (ABNORMAL) Differential, auto (12/21/2020 10:59 AM CDT) Neutrophil abs 7.0(H) 1.7 - 6.5 K/cumm [facility] ([place]) Imm gran abs 0.2(H) 0.0 - 0.1 K/cumm [facility] ([place]) Lymphocyte abs 1.1 0.8 - 3.3 K/cumm [facility] ([place]) Monocyte abs 1.6(H) 0.2 - 0.8 K/cumm [facility] ([place]) Eosinophil abs 0.2 0.0 - 0.5 K/cumm [facility] ([place]) Basophil abs 0.1 0.0 - 0.1 K/cumm [facility] ([place]) Neutrophil pct 68.7 % [facility] ([place]) Comment: Interpretive Data Percent cell count reference ranges are not reported, since discordance with absolute values may lead to misinterpretation of CBC data. Current Interpretive Data was last revised on 2017. Imm gran pct 1.6 % [facility] ([place]) Comment: Interpretive Data Percent cell count reference ranges are not reported, since discordance with absolute values may lead to misinterpretation of CBC data. Current Interpretive Data was last revised on 2017. Lymphocyte pct 10.7 % [facility] ([place]) Comment: Interpretive [...] revised on 2017. Eosinophil pct 2.4 % [facility] ([place]) Comment: Interpretive [...] Data was last revised on 2017. Blood specimen (specimen) 12/21/2020 10:59 AM CDT 12/21/2020 11:03 AM CDT us Julio Mccabe MD LAB BLOOD ORDERABLES Final Result [facility] (ARABELLA) 1 [facility] [place] [address] * (ABNORMAL) CBC with auto differential (12/21/2020 10:59 AM CDT) WBC 10.1(H) 3.8 - 9.9 K/cumm [facility] (ARABELLA) Hgb 8.0(L) 11.9 - 15.5 g/dL [facility] ([place]A) Hct 26.8(L) 35.6 - 45.5 % [facility] ([place]) Plt 279 150 - 400 K/cumm [facility] ([place]A) MPV 9.8 9.1 - 12.3 fL [facility] ([place]) RBC 3.43(L) 3.90 - 5.20 M/cumm [facility] ([place]) MCV 78.1(L) 81.3 - 96.4 fL [facility] ([place]) MCH 23.3(L) 27.1 - 33.3 pg [facility] ([place]) MCHC 29.9(L) 32.3 - 35.7 g/dL [facility] ([place]) RDW CV 17.7(H) 11.1 - 14.9 % [facility] ([place]) RDW SD 49.7(H) 35.7 - 48.1 fL [facility] ([place]A) NRBC abs 0.04(H) 0.00 - 0.01 K/cumm [facility] (AR[place]A) Blood specimen (specimen) 12/21/2020 10:59 AM CDT 12/21/2020 11:03 AM CDT us Julio Mccabe MD LAB BLOOD ORDERABLES Final Result [facility] (ARABELLA) 1 [facility] [place] [address] * ECG 12 lead (12/21/2020 10:33 AM CDT) 12/21/2020 10:3 3 AM CDT Narrative [facility] - 12/21/2020 11:28 AM CDT Vent Rate: 77 bpm RR Interval: 771 msec [place] Interval: 192 msec QRS Duration: 112 msec QT Interval: 415 msec QTC Interval: 447 msec P-R-T [place]: 46 - -28 - 55 degrees SINUS RHYTHM BORDERLINE LEFT AXIS DEVIATION [QRS AXIS < -20] MODERATE INTRAVENTRICULAR CONDUCTION DELAY [110+ ms QRS DURATION] BORDERLINE ECG No change from prior EKG Electronically Signed By: Landon Valencia MD Wayne Snow MD ECG ORDERABLES Final Resul t Performing Organization Address City/[facility] Co de Phone Number [facility] Electronifie [facility] * (ABNORMAL) POCT glucose (12/21/2020 10:13 AM CDT) [facility] Glucose, POC 160(H) 71 - 98 mg/dL MADDI LUIS EDUARDO (ARABELLA) Blood specimen (specimen) 12/21/2020 10:13 AM CDT 12/21/2020 10:13 AM CDT Wayne Snow MD LAB POCT ORDERABLES - DEVIC E Final Result MADDI [facility] (ARABELLA) 1 [facility] [place] [place] [address] * Transfuse plasma Standard plasma (12/21/2020 9:55 AM CDT) Blood specimen (specimen) Julio Mccabe MD BLOOD TRANSFUSION ORDERABLE S Final Result Performing Organization Address City/State/[facility] Co de Phone Number MADDI [facility] (ARABELLA) 1 [facility] [place] [address] * Transfuse plasma: 2 Units Standard plasma (12/21/2020 9:55 AM CDT) Blood specimen (specimen) Julio Mccabe MD BLOOD TRANSFUSION ORDERABLE S Final Result * (ABNORMAL) [place] occult blood, fecal, non-neoplasm (12/21/2020 9:38 AM CDT) [place] occult blood, fecal Positive(A ) Negative [facility]DI [facility] (ARABELLA) Stool 12/21/2020 9:38 AM CDT 12/21/2020 11:04 AM CDT Wayne Snow MD LAB BODY FLUIDS AND STOOLS ORDERABLES Final Result Performing Organization Address City/[facility]/ZIP Co de Phone Number MADDI HOFF (ARABELLA) 1 [facility] [place] [address] * (ABNORMAL) POCT glucose (12/21/2020 8:44 AM CDT) Pathologist [facility] Glucose, POC 109(H) 71 - 98 mg/dL MADDI HOFF (ARABELLA) Blood specimen (specimen) 12/21/2020 8:44 AM CDT 12/21/2020 8:44 AM CDT Wayne Snow MD LAB POCT ORDERABLES - DEVIC E Final Result Performing Organization Address City/[facility]/ZIP Co de Phone Number MADDI HOFF (ARABELLA) 1 [facility] [place] [address] * eGFR (12/21/2020 7:38 AM CDT) eGFR 82 mL/min/1.7 3 m2 [facility]ADDI [facility] (ARABELLA) Comment: Interpretive Data [...] interpretive data was last reviewed 2020 Blood specimen (specimen) 12/21/2020 7:38 AM CDT 12/21/2020 7:40 AM CDT us Wayne Snow MD LAB BLOOD ORDERABLES Final Result [facility] 1 [facility] Department of Laboratories [place], [place] [id number] * (ABNORMAL) Basic metabolic panel (12/21/2020 7:38 AM CDT) Sodium 136 135 - 145 mmol/L [facility] (ARABELLA) Potassium, pl 3.1(L) 3.3 - 4.9 mmol/L [facility] (AR[place]LLA) Chloride 99 97 - 110 mmol/L [facility] ([place]) CO2 28 22 - 32 mmol/L [facility] ([place]) Anion gap 9 2 - 15 mmol/L [facility] ([place]) BUN 25 8 - 25 mg/dL [facility] ([place]A) Creatinine 0.67 0.60 - 1.10 mg/dL [facility] ([place]) Glucose 110 70 - 199 mg/dL [facility] (ARABELLA) Comment: Interpretive Data Fasting glucose [...] interpretive data was last revised 2017. Calcium 9.6 8.5 - 10.3 mg/dL [facility] (ARABELLA) Blood specimen (specimen) 12/21/2020 7:38 AM CDT 12/21/2020 7:40 AM CDT us Carli Pozo MD LAB BLOOD ORDERABLES Final Re sult [facility] (ARABELLA) 1 [facility] [place] [address] * (ABNORMAL) CBC without differential (12/21/2020 7:38 AM CDT) WBC 11.0(H) 3.8 - 9.9 K/cumm [facility] ([place]LL[place]) Hgb 8.1(L) 11.9 - 15.5 g/dL [facility] ([place]) Hct 27.2(L) 35.6 - 45.5 % [facility] ([place]) Plt 292 150 - 400 K/cumm [facility] ([place]) MPV 9.8 9.1 - 12.3 fL [facility] ([place]) RBC 3.49(L) 3.90 - 5.20 M/cumm [facility] ([place]) MCV 77.9(L) 81.3 - 96.4 fL [facility] ([place]) MCH 23.2(L) 27.1 - 33.3 pg [facility] ([place]) MCHC 29.8(L) 32.3 - 35.7 g/dL [facility] ([place]) RDW CV 17.5(H) 11.1 - 14.9 % [facility] ([place]) RDW SD 49.2(H) 35.7 - 48.1 fL [facility] (AR[place]) NRBC abs 0.05(H) 0.00 - 0.01 K/cumm [facility] ([place]) Blood specimen (specimen) 12/21/2020 7:38 AM CDT 12/21/2020 7:40 AM CDT us Carli Pozo MD LAB BLOOD ORDERABLES Final Re sult Performing Organization Address [facility]/ZIP Co de Phone Number [facility] (ARABELLA) 1 [facility] [place] [address] * Transfuse plasma Standard plasma (12/21/2020 7:14 AM CDT) Blood specimen (specimen) us Julio Mccabe MD BLOOD TRANSFUSION ORDERABLE S Final Result Performing Organization Address [facility] de Phone Number [facility] (AR[place]LLA) 1 [facility] [place] [address] * Prepare plasma (12/21/2020 6:42 AM CDT) Unit Number [id number] [facility] (ARABELLA) Product code [id number] [facility] (ARABELLA) Blood Expiration Date [id number] [facility] (AR[place]ELLA) Product Blood Type (for scanning) 5100 [facility] (ARABELLA) Product Blood Type OPOS [facility] (AR[place]) Dispense Status DISPENSED [facility] (AR[place]LLA) us Julio Mccabe MD BLOOD BANK PRODUCT ORDERABL ES Final Result Performing Organization Address [facility] Co de Phone Number [facility] ([place]) 1 [facility] [place] [address] * (ABNORMAL) POCT glucose (12/21/2020 2:34 AM CDT) Glucose, POC 143(H) 71 - 98 mg/dL [facility] ([place]) Blood specimen (specimen) 12/21/2020 2:34 AM CDT 12/21/2020 2:34 AM CDT Wayne Snow MD LAB POCT ORDERABLES - DEVIC E Final Result Performing Organization Address City/[facility]/ZIP Co de Phone Number [facility] (AR[place]ELLA) 1 [facility] [place] [address] * Prepare plasma (12/21/2020 1:58 AM CDT) Unit Number [id number] [facility] (ARABELLA) Product code [id number] [facility] (ARAB[place]LLA) Blood Expiration Date [id number] [facility] (AR[place]LLA) Product Blood Type (for scanning) 5100 [facility] (AR[place]LLA) Product Blood Type OPOS [facility] ([place]) Dispense Status DISPENSED [facility] ([place]) Julio Mccabe MD BLOOD BANK PRODUCT ORDERABL ES Final Result Performing Organization Address [facility] Co de Phone Number [facility] ([place]) 1 [facility] [place] [address] * Prepare plasma: 2 Units Standard plasma (12/20/2020 11:36 PM CDT) Plasma # of units / Ready 2 [facility] (AR[place]A) Plasma # of units / Ready Ready [facility] (AR[place]ELLA) Blood specimen (specimen) (Blood, Venous) 12/20/2020 11:36 PM CDT 12/20/2020 11:36 PM CDT Narrative [facility] ([place]) - 12/21/2020 6:44 AM CDT Is this plasma order intended for a COVID-19 patient as convalescent plasma?->Standard plasma Special Requirements Needed?->No Julio Mccabe MD BLOOD BANK PRODUCT ORDERABL ES Final Result Performing Organization Address [facility]/ZIP Co de Phone Number [facility] (AR[place]) 1 [facility] [place] [address] * (ABNORMAL) Differential, auto (12/20/2020 11:23 PM CDT) Neutrophil abs 9.9(H) 1.7 - 6.5 K/cumm [facility] ([place]) Imm gran abs 0.2(H) 0.0 - 0.1 K/cumm [facility] ([place]) Lymphocyte abs 1.4 0.8 - 3.3 K/cumm [facility] ([place]) Monocyte abs 2.0(H) 0.2 - 0.8 K/cumm [facility] ([place]) Eosinophil abs 0.2 0.0 - 0.5 K/cumm [facility] ([place]) Basophil abs 0.0 0.0 - 0.1 K/cumm [facility] ([place]) Neutrophil pct 71.6 % [facility] (ARABELLA) Comment: Interpretive Data Percent cell count reference ranges are not reported, since discordance with absolute values may lead to misinterpretation of CBC data. Current Interpretive Data was last revised on 2017. Imm gran pct 1.2 % [facility] ([place]) Comment: Interpretive Data Percent cell count reference ranges are not reported, since discordance with absolute values may lead to misinterpretation of CBC data. Current Interpretive Data was last revised on 2017. Lymphocyte pct 10.4 % [facility] (AR[place]) Comment: Interpretive Data Percent cell count reference ranges are not reported, since discordance with absolute values may lead to misinterpretation of CBC data. Current Interpretive Data was last revised on 2017. Monocyte pct 14.8 % [facility] (AR[place]) Comment: Interpretive Data Percent cell count reference ranges are not reported, since discordance with absolute values may lead to misinterpretation of CBC data. Current Interpretive Data was last revised on 2017. Eosinophil pct 1.7 % [facility] (ARABELLA) Comment: Interpretive Data Percent cell count reference ranges are not reported, since discordance with absolute values may lead to misinterpretation of CBC data. Current Interpretive Data was last revised on 2017. Basophil pct 0.3 % [facility] (AR[place]A) Comment: Interpretive Data Percent cell count reference ranges are not reported, since discordance with absolute values may lead to misinterpretation of CBC data. Current Interpretive Data was last revised on 2017. Blood specimen (specimen) 12/20/2020 11:23 PM CDT 12/20/2020 11:25 PM CDT Julio Mccabe MD LAB BLOOD ORDERABLES Final Result [facility] (AR[place]LLA) 1 [facility] [place] [address] * (ABNORMAL) CBC with auto differential (12/20/2020 11:23 PM CDT) WBC 13.8(H) 3.8 - 9.9 K/cumm [facility] (AR[place]) Hgb 8.5(L) 11.9 - 15.5 g/dL [facility] ([place]) Hct 28.3(L) 35.6 - 45.5 % [facility] (ARABELLA) Plt 322 150 - 400 K/cumm [facility] ([place]) MPV 10.2 9.1 - 12.3 fL [facility] (AR[place]) RBC 3.60(L) 3.90 - 5.20 M/cumm [facility] (AR[place]) MCV 78.6(L) 81.3 - 96.4 fL [facility] (AR[place]A) MCH 23.6(L) 27.1 - 33.3 pg [facility] ([place]) MCHC 30.0(L) 32.3 - 35.7 g/dL [facility] ([place]) RDW CV 18.0(H) 11.1 - 14.9 % [facility] (AR[place]) RDW SD 50.9(H) 35.7 - 48.1 fL [facility] (AR[place]A) NRBC abs 0.10(H) 0.00 - 0.01 K/cumm [facility] (ARAB[place]LLA) Blood specimen (specimen) 12/20/2020 11:23 PM CDT 12/20/2020 11:25 PM CDT Julio Mccabe MD LAB BLOOD ORDERABLES Final Result [facility] [place]) 8 [facility] [place] [address] * [place] CRITICAL CARE ILL/INJURED PATIENT INIT 30-74 MIN (12/20/2020 10:08 PM CDT) Narrative Julio Mccabe MD - 12/20/2020 10:08 PM CDT Julio Mccabe MD ? 12/20/2020 11:16 PM Critical Care Performed by: Julio Mccabe MD Authorized by: Julio Mccabe MD Critical care provider statement: As reflected in the history, physical exam, orders, notes, and/or MDM, I was personally present while the patient was critically ill and provided critical care services for approximately 35 minutes, excluding time involved in separately billable procedures. ??Critical care was necessary to treat or prevent imminent or life-threatening deterioration of the following condition(s): ?? Dehydration ?? acute blood loss anemia ?? skin/soft tissue infection ??Critical care was time spent by me providing the following: ? serial bedside patient exams, interpretation of bedside monitors, imaging, and arterial/venous lab draws, continuous pulse oximetry and continuous telemetry ?? I provided emergent necessary critical care medicine services to this patient. I ordered and reviewed test results and/or imaging studies. I spent time discussing the management of this critically ill patient with consultants and the medical staff. I spent time discussing the management and therapeutic options for this critically ill patient with the patient themselves or with the appropriate designated surrogate decision-maker. I spent time documenting in the medical record. us Julio Mccabe MD IN CLINIC/BEDSIDE ORDERABLE S Final Result * CT Abdomen Pelvis W Contrast (12/20/2020 6:59 PM CDT) Anatomical Region Laterality Modality Body N/A Computed Tomogra phy 12/20/2020 7:24 PM CDT Narrative 12/20/2020 7:38 PM CDT EXAM DESCRIPTION: ?? CT ABDOMEN PELVIS W CONTRAST REASON FOR STUDY: ?? asthma, PNA, CAD, CHF, A-fib, HTN, HLD, and DM who presents to the ED via EMS and accompanied by her daughter c/o generalized weakness for approximately 3 days ??PSH cade hernia ike 100 ml optiray [id number] g r FA Duration: 3 days TECHNIQUE: ??CT scan of the abdomen and pelvis performed with intravenous and ?? without oral contrast using helical scanning technique with dynamic intravenous contrast injection. Reconstructed coronal and sagittal MPR images reviewed. All images stored on PACS. Automated exposure control was used as a dose optimization technique for this examination. CONTRAST TYPE/DOSE: ?? 100 mL of Optiray 320 injected via ??right forearm COMPARISON: ?? 11/27/2020 FINDINGS: LOWER CHEST: ??Coronary artery, aortic valvular and mitral calcifications. ?? Mild cardiomegaly. LIVER: ??Normal size. ??No identified cystic or solid masses. GALLBLADDER: ??Surgically absent. BILE DUCTS: ??No intrahepatic or extrahepatic ductal dilatation. SPLEEN: ??Punctate calcifications throughout the spleen consistent with prior granulomatous disease. PANCREAS: ??No identified cystic or solid masses. No significant calcifications. No adjacent inflammation or peripancreatic fluid collections. Pancreatic duct not dilated. ADRENALS: ??Normal. KIDNEYS/URINARY TRACT: ??No identified significant cystic or solid masses. No visualized stones. No hydronephrosis or hydroureter. Symmetric enhancement. ?? The urinary bladder is decompressed with a Schmitt catheter in place. GI: ??Moderate amount of formed stool throughout the colon. ??No dilated bowel loops. No obvious wall thickening. ??No significant diverticular disease. ??The appendix is not discretely visualized although there are no secondary signs of inflammatory change within the right lower quadrant. PERITONEUM: ??No ascites or free air. RETROPERITONEUM: ??No mass or adenopathy. REPRODUCTIVE: ??Uterus is surgically absent. VASCULATURE: ??Calcified atheroma of the abdominal aorta and its branch vessels. MUSCULOSKELETAL: ??Levoconvex scoliotic curvature of the lumbar spine with multilevel degenerative change. OTHER: ??Fat containing right femoral hernia. IMPRESSION: ?? Moderate amount of stool throughout the colon likely due to underlying constipation. ??Otherwise, no acute findings to explain the patient's current symptoms. THIS IS AN ELECTRONICALLY VERIFIED FINAL REPORT 12/20/2020 7:38 PM - Electronically signed by Deborah Garcia M.D. TS: TS D: ??12/20/2020 7:38 PM T: ??12/20/2020 7:38 PM Report ID: [id number] Reading Location: ??[id number] Procedure Note Deborah Garcia MD - 12/20/2020 EXAM DESCRIPTION: CT ABDOMEN PELVIS W CONTRAST REASON FOR STUDY: asthma, PNA, CAD, CHF, A-fib, HTN, HLD, and DM who presents to the ED via EMS and accompanied by her daughter c/o generalized weakness for approximately 3 days PSH cade hernia ike 100 ml [id number] g r FA Duration: 3 days TECHNIQUE: CT scan of the abdomen and pelvis performed with intravenousand without oral contrast using helical scanning technique with dynamic intravenous contrast injection. Reconstructed coronal and sagittal MPRimages reviewed. All images stored on PACS. Automated exposure control was used as a dose optimization technique forthis examination. CONTRAST TYPE/DOSE: 100 mL of Optiray 320 injected via right forearm COMPARISON: 11/27/2020 FINDINGS: LOWER CHEST: Coronary artery, aortic valvular and mitral calcifications. Mild cardiomegaly. LIVER: Normal size. No identified cystic or solid masses. GALLBLADDER: Surgically absent. BILE DUCTS: No intrahepatic or extrahepatic ductal dilatation. SPLEEN: Punctate calcifications throughout the spleen consistent withprior granulomatous disease. PANCREAS: No identified cystic or solid masses. No significant calcifications. No adjacent inflammation or peripancreatic fluidcollections. Pancreatic duct not dilated. ADRENALS: Normal. KIDNEYS/URINARY TRACT: No identified significant cystic or solid masses.No visualized stones. No hydronephrosis or hydroureter. Symmetricenhancement. The urinary bladder is decompressed with a Schmitt catheter in place. GI: Moderate amount of formed stool throughout the colon. No dilatedbowel loops. No obvious wall thickening. No significant diverticular disease.The appendix is not discretely visualized although there are no secondarysigns of inflammatory change within the right lower quadrant. PERITONEUM: No ascites or free air. RETROPERITONEUM: No mass or adenopathy. REPRODUCTIVE: Uterus is surgically absent. VASCULATURE: Calcified atheroma of the abdominal aorta and its branchvessels. MUSCULOSKELETAL: Levoconvex scoliotic curvature of the lumbar spine with multilevel degenerative change. OTHER: Fat containing right femoral hernia. IMPRESSION: Moderate amount of stool throughout the colon likely due to underlying constipation. Otherwise, no acute findings to explain the patient's current symptoms. THIS IS AN ELECTRONICALLY VERIFIED FINAL REPORT 12/20/2020 7:38 PM - Electronically signed by Deborah Garcia M.D. TS: TS Report ID: [id number] Reading Location: [place] [address] Julio Mccabe MD IMG CT PROCEDURES Final Res ult * ABO / Rh Confirmation Testing (12/20/2020 6:25 PM CDT) ABO/Rh Confirmation O Positive [facility] ([place]) Blood specimen (specimen) 12/20/2020 6:25 PM CDT 12/20/2020 6:25 PM CDT Julio Mccabe MD LAB BLOOD ORDERABLES Final Result Performing Organization Address City/[facility] Co de Phone Number [facility] ([place]) 1 [facility] Department [place] [address] * Prepare RBC: 1 Units (12/20/2020 6:23 PM CDT) Units requested 1 [facility] ([place]) Units requested Ready [facility] ([place]) Unit Number [id number] [facility] ([place]) Product code [id number] [facility] ([place]) Blood Expiration Date [id number] [facility] ([place]) Product Blood Type (for scanning) 5100 [facility] ([place]) Product Blood Type OPOS [facility] ([place]) Dispense Status DISPENSED [facility] ([place]) Blood specimen (specimen) 12/20/2020 6:23 PM CDT 12/20/2020 6:23 PM CDT Julio Mccabe MD BLOOD BANK PRODUCT ORDERABL ES Final Result Performing Organization Address City/[facility] Co de Phone Number MADDI HOFF (AR[place]ELLA) 1 [facility] [place] [address] * Crossmatch (12/20/2020 6:20 PM CDT) Crossmatch Compatible MADDI ARREOLA (ARABELLA) Unit number for crossmatch [id number] MADDI [facility] (AR[place]) Blood specimen (specimen) 12/20/2020 6:20 PM CDT 12/20/2020 6:23 PM CDT Julio Mccabe MD LAB BLOOD BANK TEST ORDERAB LES Final Result Performing Organization Address [facility]/ZIP Co de Phone Number MADDI HOFF (AR[place]ELLA) 1 [facility] [place] [address] * COVID-19 Coronavirus RNA Nasopharyngeal (12/20/2020 5:57 PM CDT) COVID-19 RNA Negative Negative [facility] (AR[place]LLA) Comment: Interpretive data: Synonyms for this test include: PCR and NAAT . ??This test is performed using the [employer] Xpert Xpress assay. This is a real-time RT-PCR test intended for the qualitative detection of nucleic acid from the SARS-CoV-2. This assay has been reviewed by the FDA for Emergency Use Authorization (EUA). The performance characteristics have been verified by the performing laboratory. Results must be considered in the clinical context and a negative result does not rule out infection. Interpretive data last revised June 22, 2020. First COVID-19 test? Unknown [facility] (ARABELLA) Employeed in healthcare? No MADDI HOFF (ARABELLA) status? No CE RNER LUIS EDUARDO (ARABELLA) Group care resident? Yes [facility]DI [facility] (ARABELLA) Hospitalized? Yes [facility]DI [facility] (ARABELLA) Is patient in ICU? No C ERNCARSON HOFF (ARABELLA) Symptomatic as defined by CDC? No [facility] (AR[place]LLA) Nasopharyngeal 12/20/2020 5: 57 PM CDT 12/20/2020 6:00 PM CDT Narrative [facility] ([place]) - 12/20/2020 6:54 PM CDT What is the reason for testing?->Screening prior to urgent surgery, procedure, BMT, immunosuppressive therapy Neeta Patel MD LAB MICROBIOLOGY - GENERAL ORDERABLES Final Result Performing Organization Address City/[facility]/ZIP Co de Phone Number MADDI HOFF ([place]) 1 [facility] [place] [address] * (ABNORMAL) Vitamin B12 (12/20/2020 5:39 PM CDT) Vitamin B12 1,770(H) 230 - 1,250 pg/mL [facility] ([place]) Comment:Testing performed by : [facility], [address] [place] [address]., [id number] Blood specimen (specimen) 12/20/2020 5:39 PM CDT 12/21/2020 9:11 AM CDT us Wayne Snow MD LAB BLOOD ORDERABLES Final Result Performing Organization Address [facility]/ZIP Co de Phone Number [facility] ([place]) 1 [facility] [place] [address] * (ABNORMAL) Iron profile w/ IBC (12/20/2020 5:39 PM CDT) Iron 75 35 - 145 mcg/dL [facility] ([place]) TIBC 426(H) 250 - 400 mcg/dL [facility] ([place]) Transferrin saturation 18(L) 20 - 50 % [facility] ([place]) Blood specimen (specimen) 12/20/2020 5:39 PM CDT 12/20/2020 5:44 PM CDT Wayne Snow MD LAB BLOOD ORDERABLES Final Result MADDI [facility] ([place]) 1 [facility] [place] [address] * Ferritin (12/20/2020 5:39 PM CDT) Ferritin 48 15 - 150 ng/mL [facility] ([place]) Blood specimen (specimen) 12/20/2020 5:39 PM CDT 12/20/2020 5:44 PM CDT Wayne Snow MD LAB BLOOD ORDERABLES Final Result [facility] ([place]) 1 [facility] [place] [address] * ABO / Rh Confirmation Testing (12/20/2020 4:35 PM CDT) ABO/Rh Confirmation O Positive [facility] ([place]) Blood specimen (specimen) 12/20/2020 4:35 PM CDT 12/20/2020 5:51 PM CDT Julio Mccabe MD LAB BLOOD ORDERABLES Final Result Performing Organization Address [facility]/ZIP Co de Phone Number [facility] ([place]) 1 [facility] [place] [address] * Antibody screen (12/20/2020 4:35 PM CDT) Devora, indirect, Gel Interpretation Negative ABSC [facility] ([place]) Blood specimen (specimen) 12/20/2020 4:35 PM CDT 12/20/2020 4:41 PM CDT Narrative [facility] ([place]) - 12/20/2020 5:47 PM CDT Has the patient had Daratumumab or Isatuximab in the past 6 months?->Unknown Julio Mccabe MD LAB BLOOD BANK TEST ORDERAB LES Final Result [facility] ([place]) 1 [facility] [place] [address] * ABO/Rh (12/20/2020 4:35 PM CDT) ABO/Rh O Positive [facility] ([place]) Blood specimen (specimen) 12/20/2020 4:35 PM CDT 12/20/2020 4:41 PM CDT Narrative [facility] (AR[place]LLA) - 12/20/2020 5:47 PM CDT Has the patient had Daratumumab or Isatuximab in the past 6 months?->Unknown Julio Mccabe MD LAB BLOOD BANK TEST ORDERAB LES Final Result Performing Organization Address [facility] Co de Phone Number MADDI HOFF (ARABELLA) 1 [facility] [place] [address] * (ABNORMAL) Reticulocyte Count (12/20/2020 4:35 PM CDT) Pathologist [facility] Retics, absolute 0.208(H) 0.020 - 0.087 M/cumm [facility] (ARABELLA) Retics 6.0(H) 0.4 - 2.9 % [facility] (ARAB[place]LLA) Reticulocyte Hgb 18.2(L) 30.5 - 38.0 pg [facility] (ARABELLA) Blood specimen (specimen) 12/20/2020 4:35 PM CDT 12/20/2020 4:41 PM CDT Julio Mccabe MD LAB BLOOD ORDERABLES Final Result Performing Organization Address City/[facility]/ZIP Co de Phone Number MADDI HOFF (ARABELLA) 1 [facility] [address] * Sepsis Lactate w/ Reflex (12/20/2020 4:35 PM CDT) Pathologist [facility] Sepsis Lactate 1.2 0.7 - 2.0 mmol/L [facility] (ARABELLA) Blood specimen (specimen) 12/20/2020 4:35 PM CDT 12/20/2020 4:41 PM CDT Julio Mccabe MD LAB BLOOD ORDERABLES Final Result MADDI HOFF (ARABELLA) 1 [facility] [place] [address] * (ABNORMAL) Urine culture Urine, bladder (12/20/2020 4:27 PM CDT) Report Final Report: Greater than or equal to 100,000 colonies/mL of Pseudomonas aeruginosa Greater than or equal to 100,000 colonies/mL of Enterococcus faecalis Greater than or equal to 100,000 colonies/mL of Enterococcus faecalis #2 (.) [facility] (ARABELLA) Comment:Testing performed by : [facility], [address] [place]., [address] Organism PSEUDOMONAS AERUGINOSA [facility] (ARABELLA) Organism ENTEROCOCCUS FAECALIS [facility] (ARAB[place]LLA) Organism ENTEROCOCCUS FAECALIS [facility] (AR[place]LLA) Urine, bladder 12/20/2020 4: 27 PM CDT 12/20/2020 8:19 PM CDT Narrative [facility] (ARABELLA) - 12/24/2020 3:18 PM CDT Urine culture reflexed based upon urinalysis results. Testing performed by [facility] ([phone]) Organism Antibiotic Method Susceptibility Pseudomonas aeruginosa Aztreonam INTERPRETATION Resistant Pseudomonas aeruginosa Ceftazidime INTERPRETATION Susceptible Pseudomonas aeruginosa Ciprofloxacin INTERPRETATION Susceptible Pseudomonas aeruginosa Cefepime INTERPRETATION Susceptible Pseudomonas aeruginosa Gentamicin INTERPRETATION Susceptible Pseudomonas aeruginosa Imipenem INTERPRETATION Susceptible Pseudomonas aeruginosa Meropenem INTERPRETATION Susceptible Pseudomonas aeruginosa Piperacillin/Tazobactam INTERPR ETATION Susceptible Pseudomonas aeruginosa Tobramycin INTERPRETATION Susceptible Enterococcus faecalis Ampicillin INTERPRETATION Susceptible Enterococcus faecalis Vancomycin INTERPRETATION Susceptible Enterococcus faecalis Nitrofurantoin INTERPRETATION Susceptible Enterococcus faecalis Doxycycline INTERPRETATION Susceptible Enterococcus faecalis Ampicillin INTERPRETATION Susceptible Enterococcus faecalis Vancomycin INTERPRETATION Susceptible Enterococcus faecalis Nitrofurantoin INTERPRETATION Susceptible Enterococcus faecalis Doxycycline INTERPRETATION Resistant us Julio Mccabe MD LAB MICROBIOLOGY - GENERAL ORDERABLES Final Result MADDI HOFF (ARABELLA) 1 [facility] [place] [address] * (ABNORMAL) Urinalysis, microscopic only (12/20/2020 4:27 PM CDT) WBC, ur >50(A) 0 - 5 /HPF [facility] (ARABELLA) RBC, ur 21-50(A) 0 - 2 /HPF [facility] ([place]A) Bacteria, ur 1+(A) [facility] (AR[place]LLA) Mucous, ur Present(A) C[facility]ER A (ARABELLA) Culture Reflex Comment Reflex to urine culture will be performed. [facility] (ARAB[place]LLA) Urine, bladder 12/20/2020 4: 27 PM CDT 12/20/2020 4:47 PM CDT us Julio Mccabe MD LAB URINE ORDERABLES Final Result [facility] 1 [facility] [place] [address] * (ABNORMAL) Urinalysis reflex to microscopic and culture Urine, bladder (12/20/2020 4:27 PM CDT) Color, ur Yellow Yellow [facility] ([place]) Clarity, ur Turbid(A) Clear [facility]ER A (ARABELLA) Specific gravity, ur 1.007(L) 1.010 - 1.025 [facility] (ARABELLA) pH, urine 5.5 [facility] ([place]A) Protein, ur ql Negative Negative [facility] ([place]) Glucose, ur ql 4+(A) Negative [facility] (ARAB[place]LLA) Ketones, ur Negative Negative [facility] A (ARABELLA) Bilirubin, ur Negative Negative [facility] (ARABELLA) Blood, ur Trace(A) Negative [facility] (ARABELLA) Urobilinogen, ur <2.0 <2.0 mg/dL [facility] ([place]) Nitrite, ur Positive(A) Negative [facility] (ARAB[place]LLA) Leukocyte esterase, ur 4+(A) Negative [facility] (ARAB[place]LLA) UA reflex comment Reflex to microscopic UA will be performed. [facility] (ARABELLA) Urine, bladder 12/20/2020 4: 27 PM CDT 12/20/2020 4:47 PM CDT Narrative [facility] (ARABELLA) - 12/20/2020 4:50 PM CDT ?? Urine pH is affected by diet, medications, systemic acid-base disturbances, and renal tubular function. ??pH may affect urinary stone formation. ??For example, urine pH below 6.0 may help reduce the tendency for calcium phosphate stones and pH greater than 6.0 may reduce the tendency for uric acid stone formation. Source: [employer]. Last revised 05-29-2017 us Julio Mccabe MD LAB MICROBIOLOGY - GENERAL ORDERABLES Final Result MADDI HOFF ([place]) 1 [facility] [place] [address] * XR Chest 1 Vw Portable (12/20/2020 4:21 PM CDT) Anatomical Region Laterality Modality Body, Chest N/A Computed Radiogr aphy 12/20/2020 4:39 PM CDT Narrative 12/20/2020 4:42 PM CDT EXAM DESCRIPTION: ?? XR CHEST 1 VIEW REASON FOR STUDY: ?? Generalized weakness over the past 3 days. ??Leg swelling. ?? Nonsmoker with a h/o sleep apnea, asthma, PNA, CAD, CHF, A-fib, HTN, HLD, and DM who presents to the ED via EMS and accompanied by her daughter c/o generalized weakness for approximately 3 days. Pt's daughter reports pt taking multiple water pills daily for swelling in pt's legs that has improved. She states pt has a caregiver that comes to the home a couple times per day. Today, daughter of pt states a home nurse came evaluate pt's previous UTI who states pt was feeling dizzy upon standing up this morning. Pt states they are thinking it may be A-fib. I couldn't walk. I could sit down and be okay, but as soon as I stand up my face would be real hot.Duration: today TECHNIQUE: ?? Frontal radiographic view of the chest acquired. COMPARISON: ?? 03/06/2019 and 04/07/2018 FINDINGS: LUNGS/PLEURA: ??Pulmonary vascularity appears normal. ??No infiltrate or effusion. ??Costophrenic angles are sharp. HEART/MEDIASTINUM: ??Senescent change of the aorta. ??Otherwise, normal cardiomediastinal silhouette. HARDWARE/LINES/TUBES: ??None. BONES: ??No acute findings. OTHER: ??Joanie are seen of the left lower chest similar to prior. IMPRESSION: ?? 1. ??No acute findings or infiltrate. THIS IS AN ELECTRONICALLY VERIFIED FINAL REPORT 12/20/2020 4:42 PM - Electronically signed by Noah Cuba M.D. MJ: RENETTA D: ??12/20/2020 4:42 PM T: ??12/20/2020 4:42 PM Report ID: [id number] Reading Location: ??[id number] Procedure Note Noah Cuba MD - 12/20/2020 EXAM DESCRIPTION: XR CHEST 1 VIEW REASON FOR STUDY: Generalized weakness over the past 3 days. Legswelling. Nonsmoker with a h/o sleep apnea, asthma, PNA, CAD, CHF, A-fib, HTN, HLD,and DM who presents to the ED via EMS and accompanied by her daughter c/o generalized weakness for approximately 3 days. Pt's daughter reports pttaking multiple water pills daily for swelling in pt's legs that has improved.She states pt has a caregiver that comes to the home a couple times per day. Today, daughter of pt states a home nurse came evaluate pt's previous UTIwho states pt was feeling dizzy upon standing up this morning. Pt states theyare thinking it may be A-fib. I couldn't walk. I could sit down and be okay,but as soon as I stand up my face would be real hot.Duration: today TECHNIQUE: Frontal radiographic view of the chest acquired. COMPARISON: 03/06/2019 and 04/07/2018 FINDINGS: LUNGS/PLEURA: Pulmonary vascularity appears normal. No infiltrate or effusion. Costophrenic angles are sharp. HEART/MEDIASTINUM: Senescent change of the aorta. Otherwise, normal cardiomediastinal silhouette. HARDWARE/LINES/TUBES: None. BONES: No acute findings. OTHER: Gilby are seen of the left lower chest similar to prior. IMPRESSION: 1. No acute findings or infiltrate. THIS IS AN ELECTRONICALLY VERIFIED FINAL REPORT 12/20/2020 4:42 PM - Electronically signed by Noah Cuba M.D. MJ: RENETTA Report ID: [id number] Reading Location: [id number] us Julio Mccabe MD IMG XR PROCEDURES Final Res ult * eGFR (12/20/2020 4:10 PM CDT) eGFR 65 mL/min/1.7 3 m2 MADDI HOFF ([place]) Comment: Interpretive Data Reference Interval Normal ?>/= [...] interpretive data was last reviewed 2020 Blood specimen (specimen) 12/20/2020 4:10 PM CDT 12/20/2020 4:13 PM CDT us Julio Mccabe MD LAB BLOOD ORDERABLES Final Result MADDI HOFF ([place]) 1 [facility] [place] [address] * (ABNORMAL) Iron profile w/ IBC (12/20/2020 4:10 PM CDT) Iron 50 35 - 145 mcg/dL [facility] (ARABELLA) TIBC 397 250 - 400 mcg/dL [facility] (ARABELLA) Transferrin saturation 13(L) 20 - 50 % [facility] (ARAB[place]LLA) Blood specimen (specimen) 12/20/2020 4:10 PM CDT 12/20/2020 4:51 PM CDT us Julio Mccabe MD LAB BLOOD ORDERABLES Final Result [facility] (ARABELLA) 1 [facility] [place] [address] * (ABNORMAL) Differential, auto (12/20/2020 4:10 PM CDT) Pathologist [facility] Neutrophil abs 12.7(H) 1.7 - 6.5 K/cumm [facility] (ARABELLA) Imm gran abs 0.3(H) 0.0 - 0.1 K/cumm [facility] ([place]LLA) Lymphocyte abs 1.6 0.8 - 3.3 K/cumm [facility] (ARAB[place]LLA) Monocyte abs 2.3(H) 0.2 - 0.8 K/cumm [facility] ([place]) Eosinophil abs 0.2 0.0 - 0.5 K/cumm [facility] (ARAB[place]LLA) Basophil abs 0.1 0.0 - 0.1 K/cumm [facility] (AR[place]A) Neutrophil pct 74.1 % [facility] R [facility] (ARABELLA) Comment: Interpretive Data Percent cell count reference ranges are not reported, since discordance with absolute values may lead to misinterpretation of CBC data. Current Interpretive Data was last revised on 2017. Imm gran pct 1.5 % [facility] (ARAB[place]LLA) Comment: Interpretive Data Percent cell count reference ranges are not reported, since discordance with absolute values may lead to misinterpretation of CBC data. Current Interpretive Data was last revised on 2017. Lymphocyte pct 9.3 % [facility] (ARABELLA) Comment: Interpretive Data Percent cell count reference ranges are not reported, since discordance with absolute values may lead to misinterpretation of CBC data. Current Interpretive Data was last revised on 2017. Monocyte pct 13.7 % [facility] (ARAB[place]LLA) Comment: Interpretive Data Percent cell count reference ranges are not reported, since discordance with absolute values may lead to misinterpretation of CBC data. Current Interpretive Data was last revised on 2017. Eosinophil pct 1.1 % [facility] ([place]A) Comment: Interpretive Data Percent cell count reference ranges are not reported, since discordance with absolute values may lead to misinterpretation of CBC data. Current Interpretive Data was last revised on 2017. Basophil pct 0.3 % [facility] (AR[place]LLA) Comment: Interpretive Data Percent cell count reference ranges are not reported, since discordance with absolute values may lead to misinterpretation of CBC data. Current Interpretive Data was last revised on 2017. Blood specimen (specimen) 12/20/2020 4:10 PM CDT 12/20/2020 4:13 PM CDT Julio Mccabe MD LAB BLOOD ORDERABLES Final Result MADDI HOFF ([place]) 1 [facility] [place] [place] [address] * Magnesium (12/20/2020 4:10 PM CDT) [facility] Magnesium 2.1 1.4 - 2.5 mg/dL MADDI HOFF (ARABELLA) Blood specimen (specimen) 12/20/2020 4:10 PM CDT 12/20/2020 4:13 PM CDT Julio Mccabe MD LAB BLOOD ORDERABLES Final Result ANNA MARIEKIRSTIN HOFF ([place]) 1 [facility] [place] [address] * Pro B-type natriuretic peptide (12/20/2020 4:10 PM CDT) NT-proBNP 126 <=450 pg/mL ANNA MARIEKIRSTIN HOFF (ARABELLA) Comment: Interpretive Comments: A. Dyspnea in Acute Care Setting All Ages: ?< 300 pg/ml, acute heart failure unlikely. < 50 yrs: ?300 - 450 pg/ml, further investigation warranted. ? > 450 pg/ml, acute heart failure likely. 50 - 74 yrs: ? 300 - 900 pg/ml, further investigation warranted. ? > 900 pg/ml, acute heart failure likely . > or = 75 yrs: ? 450 - 1800 pg/ml, further investigation warranted. ? > 1800 pg/ml, acute heart failure likely. B. Non-acute Setting < 75 yrs ? < 125 pg/ml, rules out heart failure. ? > or = 125 pg/ml, further investigation warranted. > or = 75 yrs ?< 450 pg/ml, rules out heart failure. ? > or = 450 pg/ml, further investigation warranted. - Knowledge of each individual patient's NT-proBNP range may be more useful than using similar cut-points for every patient. Please note that marked elevations in NT-proBNP levels may be observed in state other than Left Ventricular Congestive Failure, including: acute coronary syndromes, right heart strain/failure (including pulmonary embolism and cor pulmonale), critical illness, renal failure, as well as advanced age. - References: 1. Alison RENEE et.al. Eur Heart J. 2006:27:330-337. 2. Greg RIGGS, Nima SAUCEDO. J. AM Neetu Cardiol: Cardiovasc Imag. 2009;2: 216- 225. Interpretive Data Last Revised Date: 2018. Blood specimen (specimen) 12/20/2020 4:10 PM CDT 12/20/2020 4:13 PM CDT Julio Mccabe MD LAB BLOOD ORDERABLES Final Result Performing Organization Address City/[facility]/ZIP Co de Phone Number MADDI GOLDMAN) 1 [facility] [place] [employer] [address] * (ABNORMAL) Troponin T high-sensitivity series (baseline, 2hr, 4hr, 6hr) (12/20/2020 4:10 PM CDT) Trop T hs 21(H) <=14 ng/L MADDI HOFF (ARABELLA) Comment: Interpretive Data For further hscTnT resources including the diagnostic algorithm and an aid in interpretation, copy and paste this link: https://nrl.testcatalog.org/show/hsTrop Current Interpretive Data last revised 2020. Blood specimen (specimen) 12/20/2020 4:10 PM CDT 12/20/2020 4:13 PM CDT us Julio Mccabe MD LAB BLOOD ORDERABLES Final Result Performing Organization Address City/[facility]/ZIP Co de Phone Number MADDI HOFF (ARABELLA) 1 [facility] [place] [address] * (ABNORMAL) Protime-INR (12/20/2020 4:10 PM CDT) PT 19.5(H) 9.5 - 13.6 sec MADDI HOFF (ARAB[place]LLA) INR 1.8(H) 0.9 - 1.2 MADDI HOFF (ARABELLA) Comment: Interpretive data Oral anticoagulant therapeutic ranges: Venous thromboembolism prophylaxis or treatment: 2.0-3.0 CARDIOLOGY Standard range: 2.0-3.0 High-intensity range: 2.5-3.5 Refer to indication-specific guidelines for appropriate target ranges for prosthetic heart valve replacement. Current interpretive data was last revised on 2019. Blood specimen (specimen) 12/20/2020 4:10 PM CDT 12/20/2020 4:13 PM CDT Julio Mccabe MD LAB BLOOD ORDERABLES Final Result MADDI [facility] (ARABELLA) 1 [facility] [place] [address] * CRP (acute phase) (12/20/2020 4:10 PM CDT) CRP <3.0 <=10.0 mg/L MADDI [facility] (ARABELLA) Blood specimen (specimen) 12/20/2020 4:10 PM CDT 12/20/2020 4:13 PM CDT Julio Mccabe MD LAB BLOOD ORDERABLES Final Result Performing Organization Address [facility] Co de Phone Number MADDI [facility] (ARABELLA) 1 [facility] [place] [address] * (ABNORMAL) Comprehensive metabolic panel (12/20/2020 4:10 PM CDT) Sodium 131(L) 135 - 145 mmol/L [facility] ([place]) Potassium, pl 3.1(L) 3.3 - 4.9 mmol/L [facility] ([place]) Chloride 95(L) 97 - 110 mmol/L [facility] (ARABELLA) CO2 26 22 - 32 mmol/L [facility] (ARABELLA) Anion gap 11 2 - 15 mmol/L [facility] ([place]) BUN 37(H) 8 - 25 mg/dL [facility] ([place]) Creatinine 0.84 0.60 - 1.10 mg/dL [facility] ([place]) Glucose 162 70 - 199 mg/dL [facility] (AR[place]LLA) [...] interpretive data was last revised 2017. Calcium 10.8(H) 8.5 - 10.3 mg/dL [facility] ([place]LL[place]) Bilirubin, total 0.2 0.1 - 1.2 mg/dL [facility] ([place]) Protein, pl 6.7 6.5 - 8.5 g/dL [facility] ([place]) Albumin 4.1 3.5 - 5.0 g/dL [facility] ([place]) Alk phos 85 40 - 130 Units/L [facility] ([place]) ALT 18 7 - 45 Units/L [facility] ([place]) AST 14 10 - 45 Units/L [facility] ([place]LLA) Blood specimen (specimen) 12/20/2020 4:10 PM CDT 12/20/2020 4:13 PM CDT Julio Mccabe MD LAB BLOOD ORDERABLES Final Result [facility] (AR[place]ELLA) 1 [facility] [place] [address] * (ABNORMAL) CBC with auto differential (12/20/2020 4:10 PM CDT) WBC 17.1(H) 3.8 - 9.9 K/cumm [facility] ([place]LL[place]) Hgb 7.6(L) 11.9 - 15.5 g/dL [facility] ([place]) Hct 25.6(L) 35.6 - 45.5 % [facility] (ARAB[place]LLA) Plt 385 150 - 400 K/cumm [facility] ([place]LLA) MPV 10.0 9.1 - 12.3 fL [facility] ([place]) RBC 3.42(L) 3.90 - 5.20 M/cumm [facility] ([place]LL[place]) MCV 74.9(L) 81.3 - 96.4 fL [facility] ([place]) MCH 22.2(L) 27.1 - 33.3 pg [facility] ([place]) MCHC 29.7(L) 32.3 - 35.7 g/dL MADDI HOFF (ARABELLA) RDW CV 17.6(H) 11.1 - 14.9 % MADDI [facility]OFF ([place]ABELLA) RDW SD 47.2 35.7 - 48.1 fL MADDI HOFF ([place]LLA) NRBC abs 0.09(H) 0.00 - 0.01 K/cumm MADDI [facility] (ARABELLA) Blood specimen (specimen) 12/20/2020 4:10 PM CDT 12/20/2020 4:13 PM CDT Julio Mccabe MD LAB BLOOD ORDERABLES Final Result Performing Organization Address [facility]/ZIP Co de Phone Number MADDI PatinoSAL[place]) 1 [facility] [place] [address] * ECG 12 lead (12/20/2020 4:09 PM CDT) 12/20/2020 4:09 PM CDT Narrative [facility] - 12/21/2020 10:18 AM CDT Vent Rate: 81 bpm RR Interval: 736 msec [place] Interval: 162 msec QRS Duration: 119 msec QT Interval: 326 msec QTC Interval: 363 msec P-R-T [place]: -11 - -39 - 35 degrees Probable junctional rhythm LEFT AXIS DEVIATION ??[QRS AXIS < -30] PATTERN CONSISTENT WITH PULMONARY DISEASE MODERATE INTRAVENTRICULAR CONDUCTION DELAY ??[110+ ms QRS DURATION] NONSPECIFIC ST \T\ T-WAVE ABNORMALITY Compared to prior EKG, nonspecific ST/T changes are new and junctional rhythm has replaced sinus rhythm. Electronically Signed By: Dr Darin Corona Julio Mccabe MD ECG ORDERABLES Final Resul t Performing Organization Address City/[facility]/ZIP Co de Phone Number [facility] * (ABNORMAL) POCT glucose (12/20/2020 3:15 PM CDT) Glucose, POC 190(H) 71 - 98 mg/dL MADDI HOFF (ARABELLA) Blood specimen (specimen) 12/20/2020 3:15 PM CDT 12/20/2020 3:15 PM CDT us Notinfile Unknown LAB POCT ORDERABLES - DEVICE F inal Result MADDI HOFF ([place]) 1 [facility] Department of Laboratories [place], [place] [id number] documented in this encounter Visit Diagnoses Diagnosis Normocytic anemia- Primary Unspecified anemia Anemia, unspecified type Adverse effect of anticoagulant, initial encounter 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 Urinary tract infection associated with indwelling urethral catheter, initial encounter ([facility]) Pressure injury of contiguous region involving back and buttock, stage 2, unspecified laterality (HCC) Occult blood in stools Nonspecific abnormal finding in stool contents Chronic diastolic (congestive) heart failure (HCC) Constipation, unspecified constipation type Normocytic anemia Unspecified anemia Hypokalemia Hypopotassemia Hypokalemia Hypopotassemia Urinary tract bacterial infections Urinary tract infection, site not specified Paroxysmal atrial fibrillation (CMS/HCC) (HCC) Atrial fibrillation History of pulmonary embolism Personal history of venous thrombosis and embolism Type 2 diabetes mellitus (HCC) Chronic diastolic (congestive) heart failure (HCC) Anxiety Anxiety state, unspecified CAD (coronary artery disease) Coronary atherosclerosis of unspecified type of vessel, eyak or graft HTN (hypertension) Unspecified essential hypertension Occult blood in stools Nonspecific abnormal finding in stool contents Hypophosphatemia Disorders of phosphorus metabolism Constipation Unspecified constipation Pain and swelling of left wrist documented in this encounter Admitting Diagnoses Diagnosis Anemia Unspecified anemia Occult blood in stools Nonspecific abnormal finding in stool contents documented in this encounter Administered Medications Inactive Administered Medications - up to 3 most recent administrations Medication Order MAR Action Action Date Dose Rate Site acetaminophen (TYLENOL) tablet 500 mg 500 mg, oral, Every 4 hours PRN, 1st line for pain, Starting on Magali 12/21/20 at 1022, Indications: PainIndications:Pain Given 12/25/2020 10:51 PM CDT 500 mg Given 12/21/2020 10:28 AM CDT 500 mg ALPRAZolam (XANAX) tablet 0.25 mg 0.25 mg, oral, 2 times daily PRN, anxiety, Starting on 12/24/20 at 0756 Given 12/28/2020 8:11 AM CDT 0.25 mg Given 12/27/2020 8:25 PM CDT 0.25 mg Given 12/25/2020 10:52 PM CDT 0.25 mg amitriptyline (ELAVIL) tablet 50 mg 50 mg, oral, Nightly, First dose on Magali 12/21/20 at 2100, Indications: Neuropathic PainIndications:Neuropathic Pain Given 12/27/2020 8:16 PM CDT 50 mg Given 12/26/2020 8:32 PM CDT 50 mg Given 12/25/2020 8:03 PM CDT 50 mg amoxicillin (AMOXIL) tablet/capsule 500 mg 500 mg, oral, 3 times daily, First dose on 12/25/20 at 1200, For 5 days, Indications: Urinary Tract/Genitourinary InfectionIndications:Urinary Tract/Genitourinary Infection Given 12/28/2020 2:56 PM CDT 500 mg Given 12/28/2020 8:12 AM CDT 500 mg Given 12/27/2020 8:15 PM CDT 500 mg anastrozole (ARIMIDEX) tablet 1 mg 1 mg, oral, Daily, First dose on Magali 12/21/20 at 1400, Indications: prevention of breast cancer in high risk womenIndications:prevention of breast cancer in high risk women Given 12/28/2020 8:11 AM CDT 1 mg Given 12/27/2020 8:39 AM CDT 1 mg Given 12/26/2020 9:58 AM CDT 1 mg apixaban (ELIQUIS) tablet 5 mg 5 mg, oral, Every 12 hours scheduled, First dose (after last modification) on Magali 12/21/20 at 1500, Nurse to discontinue heparin infusion order and associated bolus at first administration of apixaban using ? order condition met? order source, Indications: atrial fibrillation, On hold since Fri12/22/2020 at 0813 until manually unheldIndications:atrial fibrillation Given 12/21/2020 2:09 PM CDT 5 mg apixaban (ELIQUIS) tablet 5 mg 5 mg, oral, Every 12 hours scheduled, First dose (after last modification) on 12/23/20 at 0900, Indications: atrial fibrillationIndications:atrial fibrillation Given 12/28/2020 8:12 AM CDT 5 mg Given 12/27/2020 8:16 PM CDT 5 mg Given 12/27/2020 8:38 AM CDT 5 mg aspirin chewable tablet 81 mg 81 mg, oral, Daily, First dose on Fri12/21/20 at 1430, On hold since Fri12/22/2020 at 0813 until manually unheld Given 12/21/2020 2:11 PM CDT 81 mg bisacodyL (DULCOLAX) suppository 10 mg 10 mg, rectal, Nightly, First dose on Fri12/25/20 at 2100, Indications: constipationIndications:constipation Given 12/27/2020 8:16 PM CDT 10 mg Given 12/26/2020 8:33 PM CDT 10 mg Given 12/25/2020 8:03 PM CDT 10 mg bisacodyl EC (DULCOLAX EC) tablet 15 mg 15 mg, oral, Once, On Fri12/25/20 at 1730, For 1 dose, Do not crush, chew, cut, dissolve, open or otherwise manipulate tablet/capsule., Indications: constipationIndications:constipation Given 12/25/2020 6:09 PM CDT 15 mg bromfenac 0.07 % drops 1 drop 1 drop, ophthalmic, 2 times daily, First dose on Fri12/21/20 at 2100, Each eye. Patient medication from home Given 12/28/2020 8:17 AM CDT 1 drop Given 12/27/2020 8:16 PM CDT 1 drop Given 12/27/2020 8:38 AM CDT 1 drop canagliflozin (INVOKANA) tablet 100 mg 100 mg, oral, Daily before breakfast, First dose (after last modification) on Fri12/22/20 at 0730, Non-formulary med, please use patients home supply. Send to pharmacy for identification and barcode. Invokana 100 mg , Indications: type 2 diabetes mellitusIndications:type 2 diabetes mellitus Given 12/28/2020 6:04 AM CDT 100 mg Given 12/27/2020 6:07 AM CDT 100 mg Given 12/26/2020 6:10 AM CDT 100 mg cefepime (MAXIPIME) 1,000 mg in sodium chloride 0.9% 100 mL IVPB 1,000 mg, intravenous, at 200 mL/hr, Administer over 30 Minutes, Once, On Fri12/20/20 at 1716, For 1 dose, Mini-Bag Plus bag, Indications: Urinary Tract/Genitourinary InfectionIndications:Urinary Tract/Genitourinary Infection New Bag 12/20/2020 5:39 PM CDT 1,000 mg 2 00 mL/hr cefepime (MAXIPIME) 1,000 mg in sodium chloride 0.9% 100 mL IVPB 1,000 mg, intravenous, at 200 mL/hr, Administer over 30 Minutes, Every 12 hours scheduled, First dose (after last modification) on Magali 12/21/20 at 2100, Mini-Bag Plus bag, Indications: Skin/Soft Tissue Infection, Urinary Tract/Genitourinary InfectionIndications:Skin/Soft Tissue Infection,Urinary Tract/Genitourinary Infection New Bag 12/25/2020 9:22 AM CDT 1,000 mg 2 00 mL/hr New Bag 12/24/2020 10:01 PM CDT 1,000 mg 200 mL/hr New Bag 12/24/2020 9:31 AM CDT 1,000 mg 200 mL/hr cholecalciferol (VITAMIN D-3) tablet 1,000 Units 1,000 Units, oral, Daily, First dose on Magali 12/21/20 at 1400 Given 12/28/2020 8:12 AM CDT 1,000 Units Given 12/27/2020 8:39 AM CDT 1,000 Units Given 12/26/2020 9:57 AM CDT 1,000 Units cyanocobalamin (Vitamin B-12) tablet 250 mcg 250 mcg, oral, Daily, First dose (after last modification) on Magali 12/21/20 at 1200, This therapy was substituted for Cyanocobalamin 100 mcg po daily per protocol., Indications: Prevention of Vitamin B12 DeficiencyIndications:Prevention of Vitamin B12 Deficiency Given 12/28/2020 8:11 AM CDT 250 mcg Given 12/27/2020 8:39 AM CDT 250 mcg Given 12/26/2020 9:58 AM CDT 250 mcg dextrose (D10W) 10% bolus 250 mL 250 mL, intravenous, at 1,000 mL/hr, Administer over 15 Minutes, Every 15 min PRN, blood glucose less than 70 mg/dL and UNABLE to swallow/take PO glucose/juice., Starting on [facility] 12/21/20 at 1651, After treatment for hypoglycemia, recheck BG followed by treatment every 15 minutes until the BG is greater than 100 mg/dL. Then check BG 1 hour post treatment. If BG is less than 100 mg/dL, repeat Q15 minute BG checks and treatment. Call MD for each episode of hypoglycemia., Indications: hypoglycemic disorderIndications:hypoglycemi c disorder dextrose 5% and Lactated Ringer's infusion 125 mL/hr, intravenous, Continuous, Starting on Fri12/20/20 at 2339 Restarted 12/21/2020 5:29 AM CDT 125 mL/hr 125 mL/hr New Bag 12/21/2020 1:45 AM CDT 125 mL/hr 125 mL/hr dextrose gel in packet 15 g 15 g, oral, Every 15 min PRN, low blood sugar, blood glucose less than 70 mg/dL, Starting on Fri12/21/20 at 1651, If patient is alert and able to eat/drink, give 15 gm glucose or one juice (4 fluid ounces) NOT ORANGE JUICE. After treatment for hypoglycemia, recheck BG followed by treatment every 15 minutes until the BG is greater than 100 mg/dL. Then check BG 1 hour post-treatment. If BG is less than 100 mg/dL, repeat Q15 minute BG checks and treatment. Call MD for each episode of hypoglycemia., Indications: hypoglycemic disorderIndications:hypoglycemic disorder docusate sodium (COLACE) capsule 100 mg 100 mg, oral, 2 times daily PRN, constipation, Starting on Fri12/22/20 at 0801, Indications: constipationIndications:constipation Given 12/28/2020 6:03 AM CDT 100 mg Given 12/27/2020 8:25 PM CDT 100 mg Given 12/27/2020 6:06 AM CDT 100 mg dorzolamide (TRUSOPT) 2 % ophthalmic solution 1 drop 1 drop, each eye, 2 times daily, First dose on Fri12/21/20 at 1200 Given 12/28/2020 8:24 AM CDT 1 drop Given 12/27/2020 8:16 PM CDT 1 drop Given 12/27/2020 12:45 PM CDT 1 drop ferric gluconate (FERRLECIT) 125 mg of elemental iron in sodium chloride 0.9% 100 mL IVPB 125 mg of elemental iron, intravenous, at 110 mL/hr, Administer over 60 Minutes, Once, On Fri12/21/20 at 1400, For 1 dose, Room temperature only New Bag 12/21/2020 2:20 PM CDT 125 mg of elemental iron 110 mL/hr ferric gluconate (FERRLECIT) 125 mg of elemental iron in sodium chloride 0.9% 100 mL IVPB 125 mg of elemental iron, intravenous, at 110 mL/hr, Administer over 60 Minutes, Once, On Fri12/22/20 at 1000, For 1 dose, Room temperature only New Bag 12/22/2020 1:10 PM CDT 125 mg of elemental iron 110 mL/hr ferric gluconate (FERRLECIT) 125 mg of elemental iron in sodium chloride 0.9% 100 mL IVPB 125 mg of elemental iron, intravenous, at 110 mL/hr, Administer over 60 Minutes, Once, On Fri12/23/20 at 0800, For 1 dose, Room temperature only New Bag 12/23/2020 8:59 AM CDT 125 mg of elemental iron 110 mL/hr flecainide (TAMBOCOR) tablet 50 mg 50 mg, oral, 2 times daily, First dose on Fri12/21/20 at 1200 Given 12/28/2020 8:11 AM CDT 50 mg Given 12/27/2020 8:16 PM CDT 50 mg Given 12/27/2020 8:38 AM CDT 50 mg furosemide (LASIX) tablet 40 mg 40 mg, oral, Daily, First dose on Fri12/21/20 at 1200 Given 12/28/2020 8:11 AM CDT 40 mg Given 12/27/2020 8:38 AM CDT 40 mg Given 12/26/2020 9:58 AM CDT 40 mg glucagon injection 1 mg 1 mg, intramuscular, Administer over 1 Minutes, Every 30 min PRN, low blood sugar, blood glucose less than 70 mg/dL AND no IV access AND unable to take PO glucose/juice., Starting on Fri12/21/20 at 1651, After Glucagon is administered, position patient on side if possible to avoid aspiration. Obtain IV access. Follow glucagon treatment with glucose treatment or IV dextrose. After treatment for hypoglycemia, recheck BG followed by treatment every 15 minutes until the BG is greater than 100 mg/dL. Then check BG 1 hour post treatment. If BG is less than 100 mg/dL, repeat Q15 minute BG checks and treatment. Call MD for each episode of hypoglycemia. Reconstitute 1 mg vial with 1 mL SWFI. Use immediately following reconstitution., Indications: HypoglycemiaIndications:Hypogl ycemia insulin glargine (LANTUS, BASAGLAR, SEMGLEE) 100 unit/mL (3 mL) pen injection 8 Units 8 Units, subcutaneous, Every morning, First dose (after last modification) on Magali 12/21/20 at 1200, Dose of Lantus 8 units sq hs insulin automatically reduced by 20% from home dose of Lantus 10 units sq hs units per [facility] protocol. Attach new pen needle required for each administration. Each new pen needle must be primed with 2 units prior to administration. Do not mix with other insulins. Given 12/28/2020 9:19 AM CDT 8 Units Right Lower Abdomen Given 12/27/2020 8:42 AM CDT 8 Units Ri ght Lower Abdomen Given 12/26/2020 10:01 AM CDT 8 Units R ight Lower Abdomen insulin lispro (HumaLOG, ADMELOG) 100 unit/mL pen injection 1-3 Units 1-3 Units, subcutaneous, Nightly, First dose on Magali 12/21/20 at 2100, Blood Sugar Mid Dose PM - PO patients 175 or less No insulin 176 - 200 1 unit 201 - 250 2 units 251 - 299 3 units Greater than 299 Call MD for hyperglycemia management instructions Do NOT hold for NPO status. Attach new pen needle required for each administration. Each new pen needle must be primed with 2 units prior to administration., Indications: Diabetes MellitusIndications:Diabetes Mellitus Given 12/27/2020 9:34 PM CDT 2 Units Left Lower Abdomen insulin lispro (HumaLOG, ADMELOG) 100 unit/mL pen injection 1-5 Units 1-5 Units, subcutaneous, 3 times daily with meals, First dose on Magali 12/21/20 at 1800, Blood Sugar Mid Dose meal time - PO patients 139 or less No insulin 140 - 175 1 unit 176 - 200 2 unit 201 - 250 3 units 251 - 299 5 units Greater than 299 Call MD for hyperglycemia management instructions Do NOT hold for NPO status. Attach new pen needle required for each administration. Each new pen needle must be primed with 2 units prior to administration., Indications: Diabetes MellitusIndications:Diabetes Mellitus Given 12/28/2020 1:46 PM CDT 2 Units Left Lower Abdomen Given 12/28/2020 9:20 AM CDT 1 Units Ri ght Lower Abdomen Given 12/26/2020 6:23 PM CDT 1 Units Ri ght Lower Abdomen ioversoL (OPTIRAY 320) injection 100 mL 100 mL, intravenous, Once in imaging, contrast, Starting on Fri12/20/20 at 1855, For 1 dose Contrast Given 12/20/2020 6:58 PM CDT 100 mL Lactated Ringer's (LR) bolus 1,000 mL 1,000 mL, intravenous, Once, On Fri12/20/20 at 2214, For 1 dose New Bag 12/20/2020 10:30 PM CDT 1,000 mL levothyroxine (SYNTHROID) tablet 75 mcg 75 mcg, oral, Daily (early AM), First dose (after last modification) on Fri12/22/20 at 0600, Administer on an empty stomach, preferably 30 minutes before breakfast. Take 4 hours apart from antacids, iron and calcium products. Given 12/28/2020 6:03 AM CDT 75 mcg Given 12/27/2020 6:06 AM CDT 75 mcg Given 12/26/2020 6:07 AM CDT 75 mcg linaCLOtide (LINZESS) capsule 290 mcg 290 mcg, oral, Daily before breakfast, First dose on Fri12/26/20 at 0730, Do not crush - May open and disperse in water 30 mL, swirl for at least 20 seconds. Administer immediately. Repeat process if any beads remain behind. Flush. Do not chew the beads., Indications: chronic idiopathic constipationIndications:chronic idiopathic constipation Given 12/28/2020 6:03 AM CDT 290 mcg Given 12/27/2020 6:06 AM CDT 290 mcg Given 12/26/2020 6:10 AM CDT 290 mcg linaCLOtide (LINZESS) capsule 72 mcg 72 mcg, oral, Daily before breakfast, First dose on Fri12/21/20 at 1400, Do not crush - May open and disperse in water 30 mL, swirl for at least 20 seconds. Administer immediately. Repeat process if any beads remain behind. Flush. Do not chew the beads., Indications: chronic idiopathic constipationIndications:chronic idiopathic constipation Given 12/25/2020 6:34 AM CDT 72 mcg Given 12/24/2020 9:30 AM CDT 72 mcg Given 12/23/2020 9:00 AM CDT 72 mcg magnesium citrate oral solution 296 mL 296 mL, oral, Once, On Fri12/25/20 at 0830, For 1 dose Given 12/25/2020 9:23 AM CDT 296 mL magnesium citrate oral solution 296 mL 296 mL, oral, Once, On Fri12/26/20 at 2200, For 1 dose Given 12/26/2020 9:24 PM CDT 296 mL magnesium hydroxide (MILK OF MAGNESIA) 80 mg/mL (33.3 mg/mL as elemental magnesium) oral suspension 30 mL 30 mL, oral, Daily, First dose on Fri12/26/20 at 0900 Given 12/28/2020 8:12 AM CDT 30 mL Given 12/27/2020 8:38 AM CDT 30 mL Given 12/26/2020 9:57 AM CDT 30 mL mineral oil (FLEET MINERAL OIL) enema 1 enema 1 enema, rectal, Once, On Fri12/25/20 at 1830, For 1 dose, Indications: constipationIndications:constipation Given 12/25/2020 11:47 PM CDT 1 enem a multivit zxiayyaq-wnix-GU-calcium (THERA-M) tablet 1 tablet 1 tablet, oral, Daily, First dose on Fri12/21/20 at 1400 Given 12/28/2020 8:12 AM CDT 1 tablet Given 12/27/2020 8:38 AM CDT 1 tablet Given 12/26/2020 9:58 AM CDT 1 tablet ondansetron ODT (ZOFRAN-ODT) disintegrating tablet 4 mg 4 mg, oral, Every 4 hours PRN, nausea, vomiting, Starting on Fri12/25/20 at 1224 Given 12/25/2020 12:30 PM CDT 4 mg oxyCODONE (ROXICODONE) tablet 5 mg 5 mg, oral, Every 4 hours PRN, 2nd line for pain, Starting on Fri12/20/20 at 2338, May administer 1 hour after 1st line agent for uncontrolled or increasing pain., Indications: PainIndications:Pain Given 12/24/2020 10:00 PM CDT 5 mg pantoprazole (PROTONIX) injection 40 mg 40 mg, intravenous, Administer over 2 Minutes, 2 times daily, First dose on Fri12/20/20 at 2339, For IV Push administration for adults- 40 mg vial: add 10 mL of sodium chloride 0.9% to achieve a final concentration of 4 mg/mL, Indications: GI BleedIndications:GI Bleed Given 12/21/2020 9:55 AM CDT 40 mg Given 12/21/2020 1:46 AM CDT [address] (PROTONIX) extended release tablet 40 mg 40 mg, oral, Daily, First dose (after last modification) on Fri12/22/20 at 0900, Do not crush, chew, cut, dissolve, open or otherwise manipulate tablet/capsule., Indications: Treatment of Non-Bleeding Gastric DisorderIndications:Treatment of Non-Bleeding Gastric Disorder Given 12/28/2020 8:12 AM CDT 40 mg Given 12/27/2020 8:39 AM CDT 40 mg Given 12/26/2020 9:58 AM CDT 40 mg potassium chloride ER (KLOR-CON) extended release tablet 20 mEq 20 mEq, oral, 4 times daily, First dose (after last reorder) on Fri12/21/20 at 1730, Do not crush, chew, cut, dissolve, open or otherwise manipulate tablet/capsule. Given 12/28/2020 1:46 PM CDT 20 mEq Given 12/28/2020 8:12 AM CDT 20 mEq Given 12/27/2020 8:16 PM CDT 20 mEq potassium chloride ER (KLOR-CON) extended release tablet 40 mEq 40 mEq, oral, Once, On Fri12/21/20 at 1100, For 1 dose, Do not crush, chew, cut, dissolve, open or otherwise manipulate tablet/capsule. Given 12/21/2020 11:59 AM CDT 40 mEq rosuvastatin (CRESTOR) tablet 10 mg 10 mg, oral, Nightly, First dose on Fri12/21/20 at 1330 Given 12/27/2020 8:16 PM CDT 10 mg Given 12/26/2020 8:32 PM CDT 10 mg Given 12/25/2020 8:03 PM CDT 10 mg senna-docusate (PERICOLACE) 8.6-50 mg per tablet 1 tablet 1 tablet, oral, 2 times daily PRN, constipation, Starting on Fri12/22/20 at 0801 Given 12/24/2020 9:31 AM CDT 1 tablet Given 12/22/2020 12:55 PM CDT 1 tablet senna-docusate (PERICOLACE) 8.6-50 mg per tablet 1 tablet 1 tablet, oral, 2 times daily PRN, constipation, Starting on Fri12/25/20 at 0749 Given 12/28/2020 6:03 AM CDT 1 tablet Given 12/27/2020 6:06 AM CDT 1 tablet Given 12/26/2020 6:07 AM CDT 1 tablet sodium chloride 0.9% flush 0.5-20 mL 0.5-20 mL, intra-catheter, Every 8 hours scheduled, First dose on Fri12/22/20 at 1400, Flush volume based on line type and size. Given 12/25/2020 9:33 AM CDT 10 mL Given 12/24/2020 10:01 PM CDT 10 mL Given 12/24/2020 9:31 AM CDT 10 mL sodium chloride 0.9% flush 0.5-20 mL 0.5-20 mL, intra-catheter, As needed, line care, Starting on Fri12/22/20 at 1010, Flush volume based on line type and size. Flush before and after each use. sodium chloride 0.9% flush 0.5-20 mL 0.5-20 mL, intra-catheter, Every 12 hours, First dose (after last modification) on Fri12/25/20 at 2100, Flush volume based on line type and size. Given 12/28/2020 9:30 AM CDT 10 mL Given 12/27/2020 8:17 PM CDT 10 mL Given 12/27/2020 8:42 AM CDT 10 mL sodium chloride 0.9% infusion 30 mL/hr, intravenous, Continuous, Starting on Fri12/27/20 at 1600, Pre-Procedure (GI) Rate/Dose Verify 12/27/2020 3:40 PM CDT 30 mL/hr New Bag 12/27/2020 3:20 PM CDT 30 mL/hr 30 mL/hr sodium chloride 0.9% IVPB 0-250 mL 0-250 mL, intravenous, Once, On Fri12/20/20 at 1717, For 1 dose, Prime blood tubing and administer amount needed to clear line (usually 50-100 mL) after transfusion complete. New Bag 12/20/2020 7:45 PM CDT 250 mL sodium phosphate 15 mmol in sodium chloride 0.9% 250 mL IVPB 15 mmol, intravenous, at 42.5 mL/hr, Administer over 6 Hours, Once, On Fri12/22/20 at 0800, For 1 dose New Bag 12/22/2020 2:04 PM CDT 15 mmol 42.5 mL/hr sodium phosphate 30 mmol in sodium chloride 0.9% 250 mL IVPB 30 mmol, intravenous, at 43.3 mL/hr, Administer over 6 Hours, Once, On Fri12/23/20 at 1600, For 1 dose New Bag 12/23/2020 5:10 PM CDT 30 mmol 43.3 mL/hr spironolactone (ALDACTONE) tablet 25 mg 25 mg, oral, Daily, First dose on Fri12/21/20 at 1200 Given 12/28/2020 8:12 AM CDT 25 mg Given 12/27/2020 8:39 AM CDT 25 mg Given 12/26/2020 9:57 AM CDT 25 mg vancomycin 1250 mg/250 mL in sodium chloride 0.9% (premix) 1,250 mg 1,250 mg (rounded from 1,155 mg = 15 mg/kg ? 77 kg), intravenous, Administer over 60 Minutes, Every 24 hours scheduled, First dose (after last modification) on Fri12/24/20 at 0900, Indications: Urinary Tract/Genitourinary InfectionIndications:Urinary Tract/Genitourinary Infection New 12/24/2020 9:30 AM CDT 1,250 mg verapamil SR (CALAN SR) extended release tablet 120 mg 120 mg, oral, Nightly, First dose on Fri12/21/20 at 2100, Tablets that are scored may be split, but do not crush, chew, dissolve, open or otherwise manipulate tablet/capsule. Given 12/27/2020 8:15 PM CDT 120 mg Given 12/26/2020 8:32 PM CDT 120 mg Given 12/25/2020 8:03 PM CDT 120 mg documented in this encounter Discontinued Medications Medication Sig Discontinue Reason Start Date End Da te FREESTYLE LITE STRIPS strip TEST BLOOD SUGARS TWICE A DAY DX E11.9.. 03/23/2019 12/21/2020 Invokana 100 mg tablet 07/21/2019 12/21/[address] (NexIUM) 40 mg capsule TAKE 1 CAPSULE DAILY 01/29/2007 12/21/2020 flecainide (TAMBOCOR) 50 mg tablet TAKE 1 TABLET TWICE A DAY 06/13/2020 12/21/2020 furosemide (LASIX) 40 mg tablet TAKE 1 TABLET DAILY 01/10/2020 12/21/2020 glimepiride (AMARYL) 1 mg tablet TAKE 1 TABLET (1 MG) BY MOUTH 3 TIMES DAILY. 04/14/2019 12/21/2020 levothyroxine (SYNTHROID) 25 mcg tablet Take 25 mcg by mouth product representative before breakfast 12/21/2020 metOLazone (ZAROXOLYN) 2.5 mg tabletIndications:fri and TAKE 1 TABLET (2.5 MG TOTAL) BY MOUTH 2 (TWO) TIMES A WEEK 10/30/2020 12/21/2020 potassium chloride ER (KLOR-CON) 10 mEq CR tablet Take 4 tablet/capsule (40 mEq total) by mouth 2 (two) times a day 03/22/2019 12/21/2020 SITagliptin (JANUVIA) 100 mg tablet take 1 tablet by oral route every day 07/01/2016 12/21/2020 rosuvastatin (CRESTOR) 10 mg tablet TAKE 1 TABLET BY MOUTH 1 TIME PER DAY AT BEDTIME 03/07/2009 12/21/2020 verapamil ER (VERELAN) 120 mg 24 hr capsule Take 1 capsule (120 mg total) by mouth nightly 04/04/2020 12/21/2020 clopidogrel (PLAVIX) 75 mg tablet take 1 tablet by oral route every day Alternate therapy 07/01/2016 12/21/2020 albuterol HFA (PROAIR HFA) 90 mcg/actuation inhaler inhale 2 puff by inhalation route every 4 - 6 hours as needed Therapy completed 07/01/2016 12/21/2020 artificial tears (SYSTANE) 0.3 % gel Apply 1 drop to both eyes nightly as needed Therapy completed 12/21/2020 polyethylene glycol (MIRALAX) 17 gram packet Take 17 g by mouth daily Therapy completed 12/21/2020 apixaban (ELIQUIS) 5 mg tablet 5 mg Reorder 12/28/2020 levothyroxine (SYNTHROID) 75 mcg tablet Take 50 mcg by mouth product representative before breakfast Reorder 12/28/2020 aspirin (ASPIRIN LOW DOSE) 81 mg tablet take 1 tablet by oral route every day Stop Taking at Discharge 02/16/2016 12/28/2020 wheat dextrin 3 gram/3.5 gram powder in packet Take by mouth Stop Taking at Discharge 12/28/2020 glimepiride (AMARYL) 1 mg tabletIndications:typ e 2 diabetes mellitus Take 1 mg by mouth (3) three times a day Stop Taking at Discharge 12/28/2020 SITagliptin (JANUVIA) 100 mg tabletIndications:typ e 2 diabetes mellitus Take 100 mg by mouth daily Stop Taking at Discharge 12/28/2020 documented as of this encounter Historical Medications * This list may reflect changes made after this encounter. potassium chloride ER (KLOR-CON) 20 mEq CR tablet Take 1 tablet (20 mEq total) by mouth 4 (four) times a day insulin glargine (LANTUS, BASAGLAR, SEMGLEE) 100 unit/mL (3 mL) pen for injection Inject 10 Units under the skin every morning bromfenac 0.07 % drops Administer 1 drop into affected eye(s) 2 (two) times a day dorzolamide (TRUSOPT) 2 % ophthalmic solution Administer 1 drop into both eyes 2 (two) times a day rosuvastatin (CRESTOR) 10 mg tablet Take 10 mg by mouth nightly 2 levothyroxine (SYNTHROID) 75 mcg tablet Take 50 mcg by mouth product representative before breakfast 1 SITagliptin (JANUVIA) 100 mg tabletIndication s:type 2 diabetes mellitus Take 100 mg by mouth daily 1 canagliflozin (INVOKANA) 100 mg tabletIndication s:type 2 diabetes mellitus 100 mg daily 3 glimepiride (AMARYL) 1 mg tabletIndication s:type 2 diabetes mellitus Take 1 mg by mouth (3) three times a day 1 furosemide (LASIX) 40 mg tablet Take 40 mg by mouth daily 1 flecainide (TAMBOCOR) 50 mg tablet Take 50 mg by mouth 2 (two) times a day [address] (NexIUM) 40 mg capsule Take 1 capsule (40 mg total) by mouth daily before breakfast 4 apixaban (ELIQUIS) 5 mg tablet 5 mg 1 cholecalciferol (VITAMIN D-3) 25 mcg (1,000 unit) tablet Take 1,000 Units by mouth daily 3 verapamil SR (CALAN SR) 120 mg CR tablet Take 120 mg by mouth nightly 2 wheat dextrin 3 gram/3.5 gram powder in packet Take by mouth 12/28 1 cyanocobalamin (Vitamin B-12) 100 mcg tabletIndication s:Prevention of Vitamin B12 Deficiency Take 100 mcg by mouth daily 3 added in this encounter Active and Recently Administered Medications Times are shown in CDT. Scheduled Medication Order 12/26/2020 12/27/2020 12/28/2020 amitriptyline (ELAVIL) tablet 50 mg 50 mg, oral, Nightly, First dose on Magali 12/21/20 at 2100, Indications: Neuropathic Pain 2031 (Given - Provider: Bonny Boone RN) 1505 (MAR Hold - Provider: Automatic Transfer Provider - Reason: Patient not available)1648 (MAR Unhold - Provider: Automatic Transfer Provider)2015 (Given - Provider: Bonny Boone, DES) amoxicillin (AMOXIL) tablet/capsule 500 mg 500 mg, oral, 3 times daily, First dose on 12/25/20 at 1200, For 5 days, Indications: Urinary Tract/Genitourinary Infection 0958 (Given - Provider: Eva Holland RN)1645 (Given - Provider: Eva Holland RN)2031 (Given - Provider: Bonny Boone RN) 0839 (Given - Provider: Eva Holland RN)1505 (MAR Hold - Provider: Automatic Transfer Provider - Reason: Patient not available)1600 (Dose Auto Held - Provider: Automatic Transfer Provider)1648 (MAR Unhold - Provider: Automatic Transfer Provider)165 (Given - Provider: Eva Holland, DES)2014 (Given - Provider: Bonny Boone, DES) 0812 (Given - Provider: Teagan Galicia, RN)1456 (Given - Provider: Teagan Galicia, RN) anastrozole (ARIMIDEX) tablet 1 mg 1 mg, oral, Daily, First dose on Magali 12/21/20 at 1400, Indications: prevention of breast cancer in high risk women 0958 (Given - Provider: Eva Holland RN) 0839 (Given - Provider: Eva Holland RN)1505 ([facility] Hold - Provider: Automatic Transfer Provider - Reason: Patient not available)1648 ([facility] Unhold - Provider: Automatic Transfer Provider) 0811 (Given - Provider: Teagan Galicia, DES) apixaban (ELIQUIS) tablet 5 mg 5 mg, oral, Every 12 hours scheduled, First dose (after last modification) on 12/23/20 at 0900, Indications: atrial fibrillation 0958 (Given - Provider: Eva Holland RN)2031 (Given - Provider: Bonny Boone, DES) 0838 (Given - Provider: Eva Holland RN)1505 ([facility] Hold - Provider: Automatic Transfer Provider - Reason: Patient not available)1648 ([facility] Unhold - Provider: Automatic Transfer Provider)2015 (Given - Provider: Bonny Boone, DES) 0812 (Given - Provider: Teagan Galicia, DES) bisacodyL (DULCOLAX) suppository 10 mg 10 mg, rectal, Nightly, First dose on 12/25/20 at 2100, Indications: constipation 2032 (Given - Provider: Bonny Boone, DES) 1505 ([facility] Hold - Provider: Automatic Transfer Provider - Reason: Patient not available)1648 ([facility] Unhold - Provider: Automatic Transfer Provider)2015 (Given - Provider: Bonny Boone, DES) bromfenac 0.07 % drops 1 drop 1 drop, ophthalmic, 2 times daily, First dose on Magali 12/21/20 at 2100, Each eye. Patient medication from home 1000 (Given - Provider: Eva Holland RN)2032 (Not Given - Provider: Bonny Boone RN - Reason: Patient/family refused) 0838 (Given - Provider: Eva Holland RN)1505 ([facility] Hold - Provider: Automatic Transfer Provider - Reason: Patient not available)1648 (MAR Unhold - Provider: Automatic Transfer Provider)2015 (Given - Provider: Bonny Boone, DES) 0817 (Given - Provider: Teagan Galicia, DES) canagliflozin (INVOKANA) tablet 100 mg 100 mg, oral, Daily before breakfast, First dose (after last modification) on Fri12/22/20 at 0730, Non-formulary med, please use patients home supply. Send to pharmacy for identification and barcode. Invokana 100 mg , Indications: type 2 diabetes mellitus 0610 (Given - Provider: Bonny Boone, DES) 0607 (Given - Provider: Bonny Boone, DES)1505 (JUL Hold - Provider: Automatic Transfer Provider - Reason: Patient not available)1648 (JUL Unhold - Provider: Automatic Transfer Provider) 0604 (Given - Provider: Bonny Boone, DES) cholecalciferol (VITAMIN D-3) tablet 1,000 Units 1,000 Units, oral, Daily, First dose on Fri12/21/20 at 1400 0957 (Given - Provider: Eva Holland RN) 0839 (Given - Provider: Eva Holland RN)1505 (JUL Hold - Provider: Automatic Transfer Provider - Reason: Patient not available)1648 (JUL Unhold - Provider: Automatic Transfer Provider) 0812 (Given - Provider: Teagan Galicia, DES) cyanocobalamin (Vitamin B-12) tablet 250 mcg 250 mcg, oral, Daily, First dose (after last modification) on Fri12/21/20 at 1200, This therapy was substituted for Cyanocobalamin 100 mcg po daily per protocol., Indications: Prevention of Vitamin B12 Deficiency 0958 (Given - Provider: Eva Holland, DES) 0839 (Given - Provider: Eva Holland RN)1505 (JUL Hold - Provider: Automatic Transfer Provider - Reason: Patient not available)1648 (JUL Unhold - Provider: Automatic Transfer Provider) 0811 (Given - Provider: Teagan Galicia, DES) dorzolamide (TRUSOPT) 2 % ophthalmic solution 1 drop 1 drop, each eye, 2 times daily, First dose on Fri12/21/20 at 1200 1233 (Given - Provider: Eva Holland RN - Comment: Pt wanted to take at noon like she does at home.)2032 (Given - Provider: Bonny Boone RN) 1245 (Given - Provider: Eva Holland RN - Comment: Pt wanted to take a noon like she does at home)1505 (JUL Hold - Provider: Automatic Transfer Provider - Reason: Patient not available)164 (JUL Unhold - Provider: Automatic Transfer Provider)2015 (Given - Provider: Bonny Boone RN) 0824 (Given - Provider: Teagan Galicia, DES) flecainide (TAMBOCOR) tablet 50 mg 50 mg, oral, 2 times daily, First dose on Fri12/21/20 at 1200 0959 (Given - Provider: Eva Holland RN)2031 (Given - Provider: Bonny Boone, DES) 0838 (Given - Provider: Eva Holland RN)1505 (JUL Hold - Provider: Automatic Transfer Provider - Reason: Patient not available)1648 ([facility] Unhold - Provider: Automatic Transfer Provider)2015 (Given - Provider: Bonny Boone, DES) 0811 (Given - Provider: Teagan Galicia, DES) furosemide (LASIX) tablet 40 mg 40 mg, oral, Daily, First dose on Fri12/21/20 at 1200 0958 (Given - Provider: Eva Holland RN) 0838 (Given - Provider: Eva Holland RN)1505 (JUL Hold - Provider: Automatic Transfer Provider - Reason: Patient not available)1648 (JUL Unhold - Provider: Automatic Transfer Provider) 0811 (Given - Provider: Teagan Galicia, DES) insulin glargine (LANTUS, BASAGLAR, SEMGLEE) 100 unit/mL (3 mL) pen injection 8 Units 8 Units, subcutaneous, Every morning, First dose (after last modification) on Magali 12/21/20 at 1200, Dose of Lantus 8 units sq hs insulin automatically reduced by 20% from home dose of Lantus 10 units sq hs units per [facility] protocol. Attach new pen needle required for each administration. Each new pen needle must be primed with 2 units prior to administration. Do not mix with other insulins. 1001 (Given - Provider: Eva Holland RN) 0842 (Given - Provider: Eva Holland RN)1505 ([facility] Hold - Provider: Automatic Transfer Provider - Reason: Patient not available)1648 ([facility] Unhold - Provider: Automatic Transfer Provider) 0919 (Given - Provider: Teagan Galicia RN) insulin lispro (HumaLOG, ADMELOG) 100 unit/mL pen injection 1-3 Units 1-3 Units, subcutaneous, Nightly, First dose on Magali 12/21/20 at 2100, Blood Sugar Mid Dose PM - PO patients 175 or less No insulin 176 - 200 1 unit 201 - 250 2 units 251 - 299 3 units Greater than 299 Call MD for hyperglycemia management instructions Do NOT hold for NPO status. Attach new pen needle required for each administration. Each new pen needle must be primed with 2 units prior to administration., Indications: Diabetes Mellitus 2122 (Not Given - Provider: Bonny Boone RN - Reason: Order parameters not met) 1505 ([facility] Hold - Provider: Automatic Transfer Provider - Reason: Patient not available)1648 ([facility] Unhold - Provider: Automatic Transfer Provider)2134 (Given - Provider: Bonny Boone RN) insulin lispro (HumaLOG, ADMELOG) 100 unit/mL pen injection 1-5 Units 1-5 Units, subcutaneous, 3 times daily with meals, First dose on Magali 12/21/20 at 1800, Blood Sugar Mid Dose meal time - PO patients 139 or less No insulin 140 - 175 1 unit 176 - 200 2 unit 201 - 250 3 units 251 - 299 5 units Greater than 299 Call MD for hyperglycemia management instructions Do NOT hold for NPO status. Attach new pen needle required for each administration. Each new pen needle must be primed with 2 units prior to administration., Indications: Diabetes Mellitus 1002 (Given - Provider: Eva Holland RN)1233 (Given - Provider: Eva Holland RN)1823 (Given - Provider: Eva Holland RN) 0750 (Not Given - Provider: Eva Holland RN - Reason: Order parameters not met)1213 (Not Given - Provider: Eva Holland RN - Reason: Order parameters not met)1505 ([facility] Hold - Provider: Automatic Transfer Provider - Reason: Patient not available)1648 ([facility] Unhold - Provider: Automatic Transfer Provider)1730 (Not Given - Provider: Eva Holland RN - Reason: Order parameters not met) 0920 (Given - Provider: Teagan Galicia, RN)1346 (Given - Provider: Teagan Galicia, RN) levothyroxine (SYNTHROID) tablet 75 mcg 75 mcg, oral, Daily (early AM), First dose (after last modification) on Fri12/22/20 at 0600, Administer on an empty stomach, preferably 30 minutes before breakfast. Take 4 hours apart from antacids, iron and calcium products. 0607 (Given - Provider: Bonny Boone RN) 0606 (Given - Provider: Bonny Boone, DES)1505 (MAR Hold - Provider: Automatic Transfer Provider - Reason: Patient not available)1648 ([facility] Unhold - Provider: Automatic Transfer Provider) 0603 (Given - Provider: Bonny Boone, DES) linaCLOtide (LINZESS) capsule 290 mcg 290 mcg, oral, Daily before breakfast, First dose on Fri12/26/20 at 0730, Do not crush - May open and disperse in water 30 mL, swirl for at least 20 seconds. Administer immediately. Repeat process if any beads remain behind. Flush. Do not chew the beads., Indications: chronic idiopathic constipation 0610 (Given - Provider: Bonny Boone RN) 0606 (Given - Provider: Bonny Boone RN)1505 ([facility] Hold - Provider: Automatic Transfer Provider - Reason: Patient not available)1648 ([facility] Unhold - Provider: Automatic Transfer Provider) 0603 (Given - Provider: Bonny Boone, DES) magnesium citrate oral solution 296 mL (COMPLETED) 296 mL, oral, Once, On Fri12/26/20 at 2200, For 1 dose 4 (Given - Provider: Bonny Boone, DES) magnesium hydroxide (MILK OF MAGNESIA) 80 mg/mL (33.3 mg/mL as elemental magnesium) oral suspension 30 mL 30 mL, oral, Daily, First dose on Fri12/26/20 at 0900 0957 (Given - Provider: Eva Holland RN) 0838 (Given - Provider: Eva Holland RN)1505 (JUL Hold - Provider: Automatic Transfer Provider - Reason: Patient not available)1648 ([facility]UL Unhold - Provider: Automatic Transfer Provider) 0812 (Given - Provider: Teagan Galicia, DES) multivit nvbdqiav-ttdq-OH-calcium (THERA-M) tablet 1 tablet 1 tablet, oral, Daily, First dose on Fri12/21/20 at 1400 0958 (Given - Provider: Eva Holland RN) 0838 (Given - Provider: Eva Holland RN)1505 (JUL Hold - Provider: Automatic Transfer Provider - Reason: Patient not available)1648 ([facility] Unhold - Provider: Automatic Transfer Provider) 0812 (Given - Provider: Teagan Galicia, DES) pantoprazole DR (PROTONIX) extended release tablet 40 mg 40 mg, oral, Daily, First dose (after last modification) on Fri12/22/20 at 0900, Do not crush, chew, cut, dissolve, open or otherwise manipulate tablet/capsule., Indications: Treatment of Non-Bleeding Gastric Disorder 0958 (Given - Provider: Eva Holland RN) 0839 (Given - Provider: Eva Holland RN)1505 ([facility] Hold - Provider: Automatic Transfer Provider - Reason: Patient not available)1648 ([facility] Unhold - Provider: Automatic Transfer Provider) 0812 (Given - Provider: Teagan Gailcia, DES) potassium chloride ER (KLOR-CON) extended release tablet 20 mEq 20 mEq, oral, 4 times daily, First dose (after last reorder) on Fri12/21/20 at 1730, Do not crush, chew, cut, dissolve, open or otherwise manipulate tablet/capsule. 0958 (Given - Provider: Eva Holland RN)1233 (Given - Provider: Eva Holland RN)1645 (Given - Provider: Eva Holland RN)2031 (Given - Provider: Bonny Boone, DES) 0839 (Given - Provider: Eav Holland RN)1245 (Given - Provider: Eva Holland RN)1505 (JUL Hold - Provider: Automatic Transfer Provider - Reason: Patient not available)1648 (JUL Unhold - Provider: Automatic Transfer Provider)165 (Given - Provider: Eva Holland, DES)2015 (Given - Provider: Bonny Boone, DES) 0812 (Given - Provider: Teagan Galicia, RN)1346 (Given - Provider: Teagan Galicia, RN) rosuvastatin (CRESTOR) tablet 10 mg 10 mg, oral, Nightly, First dose on Fri12/21/20 at 1330 2031 (Given - Provider: Bonny Boone, DES) 1505 (JUL Hold - Provider: Automatic Transfer Provider - Reason: Patient not available)1648 ([facility]UL Unhold - Provider: Automatic Transfer Provider)2015 (Given - Provider: Bonny Boone, DES) sodium chloride 0.9% flush 0.5-20 mL 0.5-20 mL, intra-catheter, Every 12 hours, First dose (after last modification) on Fri12/25/20 at 2100, Flush volume based on line type and size. 1002 (Given - Provider: Eva Holland RN)2033 (Given - Provider: Bonny Boone, DES) 0842 (Given - Provider: Eva Holland RN)1505 (JUL Hold - Provider: Automatic Transfer Provider - Reason: Patient not available)1648 (JUL Unhold - Provider: Automatic Transfer Provider)2016 (Given - Provider: Bonny Boone, DES) 0930 (Given - Provider: Teagan Galicia, DES) spironolactone (ALDACTONE) tablet 25 mg 25 mg, oral, Daily, First dose on Fri12/21/20 at 1200 0957 (Given - Provider: Eva Holland, DES) 0839 (Given - Provider: Eva Holland, DES)1505 ([facility] Hold - Provider: Automatic Transfer Provider - Reason: Patient not available)164 ([facility] Unhold - Provider: Automatic Transfer Provider) 08 (Given - Provider: Teagan Galicia, DES) verapamil SR (CALAN SR) extended release tablet 120 mg 120 mg, oral, Nightly, First dose on Fri12/21/20 at 2100, Tablets that are scored may be split, but do not crush, chew, dissolve, open or otherwise manipulate tablet/capsule. 2031 (Given - Provider: Bonny Boone, DES) 1505 ([facility] Hold - Provider: Automatic Transfer Provider - Reason: Patient not available)1648 ([facility] Unhold - Provider: Automatic Transfer Provider)2014 (Given - Provider: Bonny Boone, DES) Continuous Medication Order 12/26/2020 12/27/2020 12/28/2020 sodium chloride 0.9% infusion (CANCELED) 30 mL/hr, intravenous, Continuous, Starting on Fri12/27/20 at 1600, Pre-Procedure (GI) 1520 (New Bag - Provider: Mason Khan, DES)1540 (Rate/Dose Verify - Provider: Neeta Patel MD)1554 (Stopped - Provider: Sejal Carrizales CRNA) PRN Medication Order 12/26/2020 12/27/2020 12/28/2020 acetaminophen (TYLENOL) tablet 500 mg 500 mg, oral, Every 4 hours PRN, 1st line for pain, Starting on Magali 12/21/20 at 1022, Indications: Pain 1505 ([facility] Hold - Provider: Automatic Transfer Provider - Reason: Patient not available)1648 ([facility] Unhold - Provider: Automatic Transfer Provider) ALPRAZolam (XANAX) tablet 0.25 mg 0.25 mg, oral, 2 times daily PRN, anxiety, Starting on Fri12/24/20 at 0756 1505 ([facility] Hold - Provider: Automatic Transfer Provider - Reason: Patient not available)1648 ([facility] Unhold - Provider: Automatic Transfer Provider)2024 (Given - Provider: Bonny Boone, DES) 0811 (Given - Provider: Teagan Galicia DES) dextrose (D10W) 10% bolus 250 mL(Linked Group 1) 250 mL, intravenous, at 1,000 mL/hr, Administer over 15 Minutes, Every 15 min PRN, blood glucose less than 70 mg/dL and UNABLE to swallow/take PO glucose/juice., Starting on Magali 12/21/20 at 1651, After treatment for hypoglycemia, recheck BG followed by treatment every 15 minutes until the BG is greater than 100 mg/dL. Then check BG 1 hour post treatment. If BG is less than 100 mg/dL, repeat Q15 minute BG checks and treatment. Call MD for each episode of hypoglycemia., Indications: hypoglycemic disorder 1505 ([facility] Hold - Provider: Automatic Transfer Provider - Reason: Patient not available)1648 ([facility] Unhold - Provider: Automatic Transfer Provider) dextrose gel in packet 15 g(Linked Group 1) 15 g, oral, Every 15 min PRN, low blood sugar, blood glucose less than 70 mg/dL, Starting on Magali 12/21/20 at 1651, If patient is alert and able to eat/drink, give 15 gm glucose or one juice (4 fluid ounces) NOT ORANGE JUICE. After treatment for hypoglycemia, recheck BG followed by treatment every 15 minutes until the BG is greater than 100 mg/dL. Then check BG 1 hour post-treatment. If BG is less than 100 mg/dL, repeat Q15 minute BG checks and treatment. Call MD for each episode of hypoglycemia., Indications: hypoglycemic disorder 1505 ([facility] Hold - Provider: Automatic Transfer Provider - Reason: Patient not available)1648 ([facility] Unhold - Provider: Automatic Transfer Provider) docusate sodium (COLACE) capsule 100 mg 100 mg, oral, 2 times daily PRN, constipation, Starting on Fri12/22/20 at 0801, Indications: constipation 0607 (Given - Provider: Bonyn Boone, DES) 0606 (Given - Provider: Bonny Boone, DES)1505 ([facility] Hold - Provider: Automatic Transfer Provider - Reason: Patient not available)1648 ([facility] Unhold - Provider: Automatic Transfer Provider)2024 (Given - Provider: Bonny Boone, RN) 06 (Given - Provider: Bonny Boone, RN) glucagon injection 1 mg 1 mg, intramuscular, Administer over 1 Minutes, Every 30 min PRN, low blood sugar, blood glucose less than 70 mg/dL AND no IV access AND unable to take PO glucose/juice., Starting on Fri12/21/20 at 1651, After Glucagon is administered, position patient on side if possible to avoid aspiration. Obtain IV access. Follow glucagon treatment with glucose treatment or IV dextrose. After treatment for hypoglycemia, recheck BG followed by treatment every 15 minutes until the BG is greater than 100 mg/dL. Then check BG 1 hour post treatment. If BG is less than 100 mg/dL, repeat Q15 minute BG checks and treatment. Call MD for each episode of hypoglycemia. Reconstitute 1 mg vial with 1 mL SWFI. Use immediately following reconstitution., Indications: Hypoglycemia 1505 ([facility] Hold - Provider: Automatic Transfer Provider - Reason: Patient not available)1648 ([facility] Unhold - Provider: Automatic Transfer Provider) ondansetron ODT (ZOFRAN-ODT) disintegrating tablet 4 mg 4 mg, oral, Every 4 hours PRN, nausea, vomiting, Starting on Fri12/25/20 at 1224 1505 ([facility] Hold - Provider: Automatic Transfer Provider - Reason: Patient not available)1648 ([facility] Unhold - Provider: Automatic Transfer Provider) senna-docusate (PERICOLACE) 8.6-50 mg per tablet 1 tablet 1 tablet, oral, 2 times daily PRN, constipation, Starting on Fri12/25/20 at 0749 0607 (Given - Provider: Bonny Boone, RN) 0606 (Given - Provider: Bonny Boone, RN)1505 ([facility] Hold - Provider: Automatic Transfer Provider - Reason: Patient not available)1648 ([facility] Unhold - Provider: Automatic Transfer Provider) 0603 (Given - Provider: Bonny Boone, RN) sodium chloride 0.9% flush 0.5-20 mL 0.5-20 mL, intra-catheter, As needed, line care, Starting on Fri12/22/20 at 1010, Flush volume based on line type and size. Flush before and after each use. 1505 ([facility] Hold - Provider: Automatic Transfer Provider - Reason: Patient not available)1648 ([facility] Unhold - Provider: Automatic Transfer Provider) Linked Groups Order Group 1: dextrose gel in packet 15 gJump to med 15 g, oral, Every 15 min PRN, low blood sugar, blood glucose less than 70 mg/dL, Starting on Magali 12/21/20 at 1651, If patient is alert and able to eat/drink, give 15 gm glucose or one juice (4 fluid ounces) NOT ORANGE JUICE. After treatment for hypoglycemia, recheck BG followed by treatment every 15 minutes until the BG is greater than 100 mg/dL. Then check BG 1 hour post-treatment. If BG is less than 100 mg/dL, repeat Q15 minute BG checks and treatment. Call MD for each episode of hypoglycemia., Indications: hypoglycemic disorder Or dextrose (D10W) 10% bolus 250 mLJump to med 250 mL, intravenous, at 1,000 mL/hr, Administer over 15 Minutes, Every 15 min PRN, blood glucose less than 70 mg/dL and UNABLE to swallow/take PO glucose/juice., Starting on Magali 12/21/20 at 1651, After treatment for hypoglycemia, recheck BG followed by treatment every 15 minutes until the BG is greater than 100 mg/dL. Then check BG 1 hour post treatment. If BG is less than 100 mg/dL, repeat Q15 minute BG checks and treatment. Call MD for each episode of hypoglycemia., Indications: hypoglycemic disorder documented in this encounter Orders Medications Ordered That Daryn ht Not Have Been Administered Count Last Ordered Date First Ordered Date bisacodyL (DULCOLAX) suppository 10 mg 2 12/24/2020 magnesium citrate oral solution 296 mL 2 12/21/2020 vancomycin 1250 mg/250 mL in sodium chloride 0.9% (premix) 1,250 mg 1 12/24/2020 sodium chloride 0.9% flush 0.5-20 mL 10/2020 sodium chloride 0.9% infusion 1 12/22/2020 apixaban (ELIQUIS) tablet 5 mg 1 12/21/2020 canagliflozin (INVOKANA) tablet 100 mg 1 cefepime (MAXIPIME) 1,000 mg in sodium chloride 0.9% 100 mL IVPB 2 12/21/2020 cyanocobalamin (Vitamin B-12 ) tablet 100 mcg 1 12/21/2020 dextrose (D10W) 10% bolus 250 mL 1 08/05/20 21 dextrose gel in packet 15 g 1 12/21/2020 glucagon injection 1 mg 1 12/21/2020 insulin glargine (LANTUS, BA SAGLAR, SEMGLEE) 100 unit/mL (3 mL) pen injection 10 Units 1 12/21/2020 Lactated Ringer's (LR) infusion 1 levothyroxine (SYNTHROID) tablet 50 mcg 1 0 12/21/2020 multivitamin tablet 1 tablet 1 12/21/2020 NON FORMULARY (FOR INPATIENT USE) [address] (PROTONIX) e xtended release tablet 40 mg 1 12/21/2020 potassium chloride ER (KLOR- CON) extended release tablet 20 mEq 2 12/21/2020 acetaminophen (TYLENOL) tablet 650 mg 1 08/2020 sodium chloride 0.9% IVPB 0-250 mL 1 2020 Lab Orders Without Results Count Last Ordered D ate First Ordered Date POCT GLUCOSE DEVICE 39 12/27/2020 12/22/19 21 Diet Count Last Ordered Date First Orde red Date ADULT DISCHARGE DIET 1 12/28/2020 Nursing Count Last Ordered Date First Orde red Date DISCHARGE ACTIVITY 1 12/28/2020 DISCHARGE CALL PROVIDER 5 12/28/2020 DISCHARGE INSTRUCTIONS 2 12/28/2020 FOLLOW UP WITH ESTABLISHED PROVIDER 2 12/28 SOAP SUDS ENEMA 1 12/26/2020 VERIFY INFORMED CONSENT 1 12/22/2020 WEIGH PATIENT 1 12/20/2020 Consult Count Last Ordered Date First Orde red Date IP CONSULT TO INFECTIOUS DISEASES 1 021 IP CONSULT TO HEMATOLOGY ONCOLOGY 1 021 CORE MEASURES Count Last Ordered Date First Ord ered Date REASON FOR NO VTE PROPHYLAXIS AT ADMISSION 1 12/20/2020 Case Request Count Last Ordered Date First Orde red Date CASE REQUEST GI 2 12/27/2020 12/22/2020 ADT Patient Update Count Last Ordered Date Firs t Ordered Date ED IP DECISION TO ADMIT 1 12/20/2020 documented in this encounter Additional Health Concerns Infection Onset Date Last Indicated Resolved Time COVID: Suspected 12/20/2020 12/20/2020 12/20/2020 6:55 PM CDT documented as of this encounter Care Teams Breakfast Supervisor Relationship Specialty Start Date End Date Destiney Camargo MD PCP - General 09/29/18 12/05/22 Landon Valencia MD Consulting Physician Cardiology 03/22/19 12/05/22 Migue Herman MD Consulting Physician Urology 05/16/19 Sonny Palmer MD Surgeon General Surgery 05/16/19 documented as of this encounter
--- OUTSIDE RECORDS SUMMARY | 2024-05-26 12:59 | XMS_ITS | Encounter Summary ---
Author Organization [facility] Address [address] [place] [address] Care Team Providers Care Master Black Belt Name Role Phone Theresa Camargo MD Primary Care Provider [phone] Laz Valencia MD Unavailable [phone] Migue Herman MD Unavailable [phone] Sonny Palmer MD Unavailable [phone] Reason for Visit * Reason Comments Follow-up Atrial Fibrillation Coronary Artery Disease Encounter Details Date Type Department Care Team (Late st Contact Info) Description 01/08/2021 2:00 PM CDT Office Visit [place] [employer] [address] [address] Ana Lilia Rain NP 2 [facility] [address] [place] [address] Paroxysmal atrial fibrillation (CMS/HCC) (HCC) (Primary Dx); 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 Gender Identity Not on file Sexual Orientation Not on file documented as of this encounter Last Filed Vital Signs Vital Sign Reading Time Taken Comments Blood Pressure 106/53 01/08/2021 2:33 PM CDT Pulse 79 01/08/2021 2:33 PM CDT Temperature 36.7 ??C (98.1 ??F) 01/08/2021 2:33 PM CD T Respiratory Rate 16 01/08/2021 2:33 PM CDT Oxygen Saturation - - Inhaled Oxygen Concentration - - Weight 76.2 kg (168 lb) 01/08/2021 2:33 PM CDT Height 165.1 cm (5' 5 ) 01/08/2021 2:33 PM CDT Body Mass Index 27.96 01/08/2021 2:33 PM CDT documented in this encounter Progress Notes * Ana Lilia Rain FOIL CUTTER - 01/08/2021 2:00 PM CDT Cardiology note Reason for Office Visit: [...] descending showing insignificant stenosis. Patient was in [place] 10/2015 went to EMD had chest pain [...] on her TSH with Dr. Javed at [facility] for a low thyroid but improved [...] rehab for a time- [facility]. Dizziness and trouble with balance in september [...] with his medications. Denies any bleeding issues. 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 menthol-zinc oxide (CALMOSEPTINE) 0.44-20.6 [...] for this visit. Vital Signs: Vitals BP 106/53 (BP Location: Right arm, Patient Position: Sitting) Pulse 79 Temp 36.7 ??C (98.1 ??F) Resp 16 Ht 165.1 cm (5' 5 ) Wt 76.2 kg (168 lb) BMI 27.96 kg/m?? Vitals: 01/08/21 1433 BP: 106/53 Pulse: 79 Resp: 16 Temp: 36.7 ??C (98.1 ??F) Wt Readings from Last 3 Encounters: 01/08/21 76.2 kg (168 lb) 12/21/20 77 kg (169 lb 11.2 oz) 11/26/20 80.7 kg (178 lb) Body mass index is 27.96 kg/m??. Physical Exam: Physical Exam Constitutional: General: [...] Component Value Date BILIRUBINU Negative 06/14/2016 AST 14 12/20/2020 ALT 18 12/20/2020 ALKPHOS 85 12/20/2020 ALBUMIN 3.6 12/23/2020 Lab Results Component Value Date SODIUM 135 12/28/2020 POTASSIUM 4.6 12/28/2020 CHLORIDE 104 12/28/2020 CO2 21 (L) 12/28/2020 ANIONGAP 10 12/28/2020 GLUCOSEUR 4+ (A) 12/20/2020 Lab Results Component Value Date BNP 14 08/30/2015 Lab Results Component Value Date SODIUM 135 12/28/2020 SODIUM 135 12/27/2020 SODIUM 135 12/26/2020 POTASSIUM 4.6 12/28/2020 POTASSIUM 4.5 12/27/2020 POTASSIUM 4.9 12/26/2020 CHLORIDE 104 12/28/2020 CHLORIDE 103 12/27/2020 CHLORIDE 105 12/26/2020 CO2 21 (L) 12/28/2020 CO2 25 12/27/2020 CO2 23 12/26/2020 BUNSER 19 12/28/2020 BUNSER 19 12/27/2020 BUNSER 18 12/26/2020 CREATININE 0.67 12/28/2020 CREATININE 0.72 12/27/2020 CREATININE 0.66 12/26/2020 GFRNAA 82 12/28/2020 GFRNAA 78 12/27/2020 GFRNAA 82 12/26/2020 GLUCOSE 189 (H) 12/28/2020 CALCIUM 9.2 12/28/2020 CALCIUM 9.6 12/27/2020 CALCIUM 9.5 12/26/2020 ALBUMIN 3.6 12/23/2020 ALBUMIN 3.6 12/22/2020 ALBUMIN 4.1 12/20/2020 PHOS 2.4 12/24/2020 PHOS 2.1 (L) 12/23/2020 PHOS 2.1 (L) 12/22/2020 Lab Results Component Value Date SODIUM 135 12/28/2020 POTASSIUM 4.6 12/28/2020 CHLORIDE 104 12/28/2020 CO2 21 (L) 12/28/2020 ANIONGAP 10 12/28/2020 BUNSER 19 12/28/2020 CREATININE 0.67 12/28/2020 GLUCOSE 189 (H) 12/28/2020 CALCIUM 9.2 12/28/2020 BILITOT 0.2 12/20/2020 PROT 6.7 12/20/2020 ALBUMIN 3.6 12/23/2020 ALKPHOS 85 12/20/2020 ALT 18 12/20/2020 AST 14 12/20/2020 Lab Results Component Value Date WBC 8.3 12/28/2020 HGB 9.3 (L) 12/28/2020 HCT 32.8 (L) 12/28/2020 LABPLAT 277 12/28/2020 MPV 10.2 12/28/2020 RBC 4.07 12/28/2020 MCV 80.6 (L) 12/28/2020 MCH 22.9 (L) 12/28/2020 MCHC 28.4 (L) 12/28/2020 RDWCV 19.9 (H) 12/28/2020 RDWSD 57.6 (H) 12/28/2020 NRBCABS 0.00 12/28/2020 Lab Results Component Value Date CHOL 112 [...] pumps routinely. Leg elevation and compression stocking. 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
--- OUTSIDE RECORDS SUMMARY | 2024-05-26 12:59 | XMS_ITS | Encounter Summary ---
Author Organization [facility] Healthcare Address [address] [place] [address] Care Team Providers Care Clinical Trial Assistant Name Role Phone Theresa Camargo MD Primary Care Provider [phone] Laz Valencia MD Unavailable [phone] Migue Herman MD Unavailable [phone] Sonny Palmer MD Unavailable [phone] Reason for Visit * Reason Comments Other Catheter Replacement Encounter Details Date Type Department Care Team (Late st Contact Info) Description 01/20/2021 1:09 PM CDT - 01/20/2021 1:58 PM CDT Emergency [facility] Emergency Department [address] [place] [address] Encounter for Galvez catheter replacement (Primary Dx) Discharge Disposition: Discharge to home [...] any clubs o r organizations such as methodist groups, unions, fraternal or athletic groups, or [...] on file 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 Gender Identity Not on file Sexual Orientation Not on file documented as of this encounter Last Filed Vital Signs Vital Sign Reading Time Taken Comments Blood Pressure 129/51 01/20/2021 12:19 PM CDT Pulse 79 01/20/2021 12:19 PM CDT Temperature 36.4 ??C (97.5 ??F) 01/20/2021 12:15 PM C DT Respiratory Rate 16 01/20/2021 12:15 PM CDT Oxygen Saturation 94% 01/20/2021 12:19 PM CDT Inhaled Oxygen Concentration - - Weight 76.2 kg (168 lb) 01/20/2021 12:15 PM CDT Height 165.1 cm (5' 5 ) 01/20/2021 12:15 PM CDT Body Mass Index 27.96 01/20/2021 12:15 PM CDT documented in this encounter Discharge Diagnoses Diagnosis Displacement of indwelling urethral catheter, initial encounter (HCC) - DISPLACEMENT OF INDWELLING URETHRAL CATHETER, INITIAL ENCOUNTER Exposure to other specified factors, initial encounter - EXPOSURE TO OTHER SPECIFIED FACTORS, INITIAL ENCOUNTER Activity, other specified - ACTIVITY, OTHER SPECIFIED Unspecified place in unspecified non-institutional (private) residence as the place of occurrence of the external cause - UNSPECIFIED PLACE IN UNSPECIFIED NON-INSTITUTIONAL (PRIVATE) RESIDENCE THE PLACE OF OCCURRENCE OF documented in this encounter Discharge Instructions * Discharge Instructions* Sadia Rogers NP - 01/20/2021 1:35 PM CDT Follow up with Dr. Camargo without fail. * Attachments The following attachments cannot be sent through Care Everywhere. * Galvez Catheter Placement and Care (AfterCare(R) Instructions(ER/ED)) (Tunisian) documented in this encounter Medications at Time [...] by mouth 4 (four) times a day linaCLOtide (LINZESS) 290 mcg capsuleIndication s:chronic idiopathic constipation Take 1 capsule (290 mcg total) by mouth daily before breakfast 90 capsule 3 1 02/18/20 21 magnesium hydroxide (MILK OF MAGNESIA) suspension [...] 2 (two) times a day 60 tablet 08/11/19 22 bisacodyL (DULCOLAX) 10 mg suppositoryIndica [...] 12/07/19 23 docusate sodium (COLACE) 100 mg capsuleIndication s:constipation Take 1-2 pills daily in the evening for additional management of constipation 60 capsule 1 1 04/19/[address] (NexIUM) 40 mg capsule Take 1 capsule (40 mg total) by mouth daily before breakfast 03/04/20 24 ferrous sulfate 325 mg (65 mg of elemental iron) tablet Take 325 mg by mouth 12/07/19 23 flecainide (TAMBOCOR) 50 mg tablet Take 50 mg by mouth 2 (two) times a day 01/24/20 21 furosemide (LASIX) 40 mg tablet TAKE 1 TABLET DAILY 90 tablet 3 08/11/19 22 glimepiride (AMARYL) 1 mg tablet 2 mg w/ breakfast , 2 mg with lunch and 1 mg with dinner Po 1 12/07/19 23 levoFLOXacin (LEVAQUIN) 500 mg tablet Take 500 mg by mouth daily 12/07/19 23 levothyroxine (SYNTHROID) 75 mcg tablet Take 1 tablet (75 mcg total) 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 595 g 1 1 02/20/20 21 rosuvastatin (CRESTOR) 10 mg tablet Take 10 mg by mouth nightly 08/11/19 22 senna (SENOKOT) 8.6 mg tablet Take 2 tablets every 2-3 days in the evening for additional management of constipation as needed. 60 tablet 1 1 12/07/19 23 SITagliptin (JANUVIA) 100 mg tablet Take 1 tablet (100 mg total) by mouth daily 05/23/19 24 spironolactone (ALDACTONE) 25 mg tablet Take 1 tablet (25 mg total) by mouth daily 30 tablet 11 0 02/13/20 21 trospium (SANCTURA) 20 mg tablet Take 20 mg by mouth 2 (two) times a day 1 12/07/19 23 verapamil SR (CALAN SR) 120 mg CR tablet Take 120 mg by mouth nightly 08/07/19 22 documented as of this encounter Discharge Disposition Disposition Code Departure Means Destination Discharge to home or self care documented in this encounter ED Notes * Sadia Rogers, LOTTIE - 01/20/2021 1:30 PM CDT HPI Chief Complaint Patient presents with ??? Other Catheter Replacement 80 y.o. 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[facility]) No date: Glaucoma Comment: Glaucoma No date: Glaucoma No date: Herpes zoster Comment: Herpes zoster No date: HX OTHER MEDICAL Comment: Transient ischemic attack (TIA) No date: HX OTHER MEDICAL Comment: Fx Sacrum 2000 No date: HX OTHER MEDICAL Comment: Lymphatic edema No date: HX OTHER MEDICAL Comment: Spinal Cerebellum Degeneration No date: HX OTHER MEDICAL Comment: URI/GERD; Outcome: improved No date: HX OTHER MEDICAL Comment: TIA No date: Hyperlipidemia Comment: Hyperlipidemia No date: Hypertension Comment: Hypertension No date: Lymphatic edema No date: Osteoarthritis Comment: Osteoarthritis No date: Pneumonia No date: Sleep apnea; accompanied by family presents to ED with c/o : Other: Catheter Replacement Denies fever, chills, nausea, vomiting, diarrhea, SOB, CP, numbness, tingling. Pt states her indwelling galvez catheter came out today. Pt is currently being treated for constipation.Denies other complaint at this time. Patient History: Patient Active Problem List Diagnosis Date Noted ??? Breast cancer (CMS/HCC) ([facility]) 10/01/2017 ??? Weakness generalized 10/01/2017 ? ? Nausea & vomiting 10/01/2017 ??? DM (diabetes mellitus) ([facility]) 10/01/2017 ??? PAF (paroxysmal atrial fibrillation) (CMS/HCC) ([facility]) 10/01/2017 ??? Lymphedema of both lower extremities 10/01/2017 ??? CATY on CPAP 10/01/2017 ??? Iron deficiency anemia due to chronic blood loss 01/18/2021 ??? 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 Pain and swelling of left wrist 12/25/2020 ??? Anxiety 12/24/2020 ??? Hypophosphatemia 12/23/2020 ??? Normocytic anemia 12/21/2020 ??? Urinary tract infection associated with indwelling urethral catheter (CMS/HCC) ([facility]) 12/21/2020 ??? Paroxysmal atrial fibrillation (CMS/HCC) ([facility]) 12/21/2020 ??? History of pulmonary embolism 12/21/2020 ??? Type 2 diabetes mellitus ([facility]) 12/21/2020 ??? Chronic diastolic (congestive) heart failure ([facility]) 12/21/2020 ??? Anxiety 12/21/2020 ??? CAD (coronary artery disease) 12/21/2020 ??? HTN (hypertension) 12/21/2020 ??? Occult blood in stools 12/20/2020 ??? Cystitis 05/14/2019 ??? Chronic constipation 05/14/2019 ??? Recurrent inguinal hernia 05/14/2019 ??? Multiple falls ??? Fall 03/19/2019 ??? Hypokalemia 03/19/2019 ??? Hypercalcemia 03/19/2019 ??? Peripheral edema ??? Chronic diastolic congestive heart failure (CMS/HCC) (HCC) 10/03/2017 ??? Pure hypercholesterolemia 08/30/2015 ??? Asthma 02/17/2013 ??? Hypokalemia 02/17/2013 ??? Chronic ischemic heart disease 11/06/2011 ??? Adiposity 11/06/2011 ??? Atherosclerosis of coronary artery bypass graft 07/02/2011 Past Medical History: Diagnosis Date ??? A-fib [...] Alcohol use: No ??? Drug use: No Social History Social History Narrative Lives at home. Review of Systems Review of Systems Constitutional: Negative. HENT: Negative. Respiratory: Negative. Cardiovascular: Negative. Gastrointestinal: Negative. Musculoskeletal: Negative. Skin: Negative. Neurological: Negative. All other systems reviewed and are negative. Physical Exam ED Triage Vitals Temp Pulse Resp BP SpO2 01/20/21 1215 01/20/21 1219 01/20/21 1215 01/20/21 1219 01/20/21 1219 36.4 ??C (97.5 ??F) 79 16 129/51 94 % Temp src Heart Rate Source Patient Position BP Location FiO2 (%) 01/20/21 1215 -- -- 01/20/21 1219 -- Temporal Left arm Physical Exam Vitals and nursing note reviewed. Constitutional: General: She is awake. She is not in acute distress. Appearance: Normal appearance. She is not ill-appearing, toxic-appearing or diaphoretic. HENT: Head: Normocephalic and atraumatic. Right Ear: Hearing and external ear normal. Left Ear: Hearing and external ear normal. Nose: Nose normal. Mouth/Throat: Lips: [place]. Mouth: Mucous membranes are moist. Eyes: General: Lids are normal. Cardiovascular: Pulses: Normal pulses. No decreased pulses. Pulmonary: Effort: Pulmonary effort is normal. Breath sounds: Normal breath sounds and air entry. No stridor, decreased air movement or transmitted upper airway sounds. No decreased breath sounds, wheezing, rhonchi or rales. Abdominal: General: Abdomen is flat. Bowel sounds are normal. Palpations: Abdomen is soft. Tenderness: There is no abdominal tenderness. There is no right CVA tenderness or left CVA tenderness. Musculoskeletal: Cervical back: Full passive range of motion without pain, normal range of motion and neck supple. Lymphadenopathy: Cervical: No cervical adenopathy. Skin: General: Skin is warm. Capillary Refill: Capillary refill takes less than 2 seconds. Neurological: General: No focal deficit present. Mental Status: She is alert and easily aroused. Psychiatric: Behavior: Behavior is cooperative. MDM MDM Final diagnoses: Encounter for Galvez catheter replacement Sadia Rogers NP 01/20/21 1335 Cosigned by Adan Funez MD at 01/20/2021 3:25 PM CDT Associated attestation - Adan Funez MD - 01/20/2021 3:25 PM CDT ED Attestation I agree with management. * Mehreen Lundberg RN - 01/20/2021 12:13 PM CDT 80 yr old female with PMH of HTN, DM, MS and IBSC, presents to the ED via [facility] from home with her daughter who reports that pt accidentally pulled out her urinary catheter today. Pt daughter states pt has had indwelling Galvez for many years and it was last changed yesterday by home health RN. documented in this encounter Plan of Treatment Not on file documented as of this encounter Visit Diagnoses Diagnosis Encounter for Galvez catheter replacement- Primary documented in this encounter Orders Nursing Count Last Ordered Date First Orde red Date INSERT GALVEZ CATHETER 1 01/20/2021 documented in this encounter Care Teams Clinical Trial Assistant Relationship Specialty Start Date End Date Theresa Camargo MD PCP - General 09/29/18 12/05/22 Laz Valencia MD Consulting Physician Cardiology 03/22/19 12/05/22 Migue Herman MD Consulting Physician Urology 05/16/19 Sonny Palmer MD Surgeon General Surgery 05/16/19 documented as of this encounter
--- OUTSIDE RECORDS SUMMARY | 2024-05-26 12:59 | XMS_ITS | Encounter Summary ---
Author Organization [facility] Address [address] [place] [address] Care Team Providers Care Sales Development Director Name Role Phone Theresa Camargo MD Primary Care Provider [phone] Laz Valencia MD Unavailable [phone] Migue Herman MD Unavailable [phone] Sonny Palmer MD Unavailable [phone] Reason for Visit * Reason Comments New Patient Hospital Follow Up Pt has was in the ER on 12/20 and is here for a follow up. Pt is still having constipation issues and she is due to start an iron pill. Pt reports no other GI issues today. Encounter Details Date Type Department Care Team (Latest Contact Info) Description 01/18/2021 1:30 PM CDT Office Visit [facility] Gastroenterology at [address] [place] [id number] Dick Simeon NP [address] [facility] [address] [place] [address] Chronic constipation (Primary Dx); Iron deficiency anemia due to chronic blood loss; Chronic anticoagulation Social History Tobacco Use Types [...] often do you attend chur ch or latter day services? 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 Gender Identity Not on file Sexual Orientation Not on file documented as of this encounter Last Filed Vital Signs Vital Sign Reading Time Taken Comments Blood Pressure 120/62 01/18/2021 1:13 PM CDT Pulse 81 01/18/2021 1:13 PM CDT Temperature 35.8 ??C (96.4 ??F) 01/18/2021 1:13 PM CD T Respiratory Rate - - Oxygen Saturation 95% 01/18/2021 1:13 PM CDT Inhaled Oxygen Concentration - - Weight 76.2 kg (168 lb) 01/18/2021 1:13 PM CDT Height 165.1 cm (5' 5 ) 01/18/2021 1:13 PM CDT Body Mass Index 27.96 01/18/2021 1:13 PM CDT documented in this encounter Patient Instructions * Patient Instructions* Dick Bowden NP - 01/18/2021 1:30 PM CDT Recheck blood counts in 10 days. Follow up with me in 2 weeks. Continue to hold oral iron and we will see if we can get you approved for iron infusions through our infusion center, if iron supplementation is needed in the future. Continue Linzess without change 1 capful of Miralax= a heaping capful! Take 2 capfuls of Miralax 3 times daily for 3 days. Mix each dose with at least 300 mls of fluid. Take 2 senokot daily for 3 days. Take 2 colace daily for 3 days. On a daily basis, take Linzess each morning and try to avoid taking other meds/eating for at least 30 mins afterwards. Take 1-2 capfuls of Miralax in 250-300 mls of fluid each evening. (If you need to cut back on this,cut back on it 2nd). Take 2 Senokot every other day in the evening. Take 2 colace daily in the evening. (If you need to cut back on something, cut back on this 1st). You can use a Dulcolax suppository as needed if no BM in 2 days or if there is a lot of rectal pressure, but no BM. . documented in this encounter Ordered Prescriptions Prescription Sig Dispense Quantity Refills Last Filled Start Date End Date senna (SENOKOT) 8.6 mg tablet Take 2 tablets every 2-3 days in the evening for additional management of constipation as needed. 60 tablet 1 01/18/2021 3 docusate sodium (COLACE) 100 mg capsuleIndication s:constipation Take 1-2 pills daily in the evening for additional management of constipation 60 capsule 1 01/18/2021 1 polyethylene glycol (MIRALAX) 17 gram/dose powder Take 1-2 capfuls of Miralax daily in the evening for additional constipation management. 595 g 1 01/18/2021 1 linaCLOtide (LINZESS) 290 mcg capsuleIndication s:chronic idiopathic constipation Take 1 capsule (290 mcg total) by mouth daily before breakfast 90 capsule 3 01/18/2021 1 documented in this encounter Progress Notes * Dick Bowden NP - 01/18/2021 1:30 PM CDT Images from the original note were not included. PATIENT DEMOGRAPHICS Perla Leon is a 80 y.o. White female. PATIENT'S CARE TEAM Patient Care Team: Theresa Camargo MD as PCP - Laz Peralta MD as Consulting Physician (Cardiology) Migue Herman MD as Consulting Physician (Urology) Sonny Palmer MD as Surgeon (General Surgery) EMOGRAPHICS CHIEF COMPLAINT Chief Complaint Patient presents with ??? New Patient ??? Hospital Follow Up Pt has was in the ER on 12/20 and is here for a follow up. Pt is still having constipation issues andshe is due to start an iron pill. Pt reports no other GI issues today. HPI New or existing patient visit: New Referring Provider: Theresa Camargo MD Perla is here today with her daughter, Ange, for evaluation of ongoing issues with constipation and for hospital discharge follow-up. She was hospitalized at [facility] from 12/20 to 12/28 with anemia and a UTI. She has been in an out of the hospital for various things. At one point her Eliquis was stopped due to possible GI bleed, then she developed severe clotting in her lungs and cor pulmonale. Had to have a thrombectomy completed. Now she is back on her Eliquis (also has history of Afib). At one point she was on both Eliquis and aspirin, but now she is just on the Eliquis. She does not take NSAIDs. She received three iron infusions during her recent hospitalization has not been taking her p.o. iron, but her float phlebotomist/oncologist who follows her for breast cancer surveillance advised her that he really wants her to be back on her oral iron. Hemoglobin today is 11.5 and hematocrit 39.5. On 01/05, her hemoglobin was 11.2. On hospital admission on 12/20, her hemoglobin was 7.6 when it hadbeen 12.7 one month prior. She is also finishing up Levaquin for UTI. Will be finished with that tomorrow. Iron level on 12/20 were 75. It had been 23 on 12/08. Stool positive for occult blood on 12/21. On 12/22 she had an EGD with Dr. Patel. Duodenum was normal. It there is erythema in the antrumof the stomach. Multiple benign-appearing gastric polyps were noted. Irregular Z-line noted. No active bleeding identified. Fundic gland polyp noted on biopsy. H pylori testing negative. 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 Gastric biopsy did not reveal any concerns for metaplasia, dysplasia, or malignancy. On 12/27 she had a flexible sigmoidoscopy with Dr. Patel to dig out a large fecal impaction in the rectum and sigmoid colon. A erythema was noted in the rectum and a few erosions, which could likely explain the occult blood loss. No active bleeding was identified. She was placed on Dulcolax suppository every night, Linzess 290 micro g daily, and milk of magnesia daily. She has been doing the milk of magnesia daily in the Linzess daily, but is only using the Dulcolax suppository sometimes. She had a very large BM before leaving the hospital and one after getting one. Has not currently had a bowel movement in six days. No black or bloody stools. No heartburn or reflux. No abdominal pain. No excessive bloating or gas. She feels fine. Has chronic constipation that seems alternate with diarrhea, but it all likely comes back to the chronic constipation. She has dealt with it for years. REVIEW OF SYSTEMS Review of Systems Constitutional: Negative for activity change, appetite change, chills, diaphoresis, fatigue, fever,and unexpected weight change. HENT: Negative for congestion, drooling, mouth sores, postnasal drip, rhinorrhea, sore throat, trouble swallowing, and voice change. Respiratory: Negative for cough, choking, chest tightness, shortness of breath, wheezing, and stridor. Cardiovascular: Negative for chest pain, palpitations, and leg swelling. Gastrointestinal: See HPI for full review of this system. + Constipation. No other problematic GI symptoms. Genitourinary: Negative for difficulty urinating, dysuria, frequency, and urgency. Musculoskeletal: Negative for arthralgias and myalgias. Skin: Negative for pallor and rash. Neurological: Negative for dizziness, light-headedness, and headaches. Psychiatric/Behavioral: Negative for decreased concentration, dysphoric mood, and sleep disturbance. The patient is not nervous/anxious. PHYSICAL EXAM BP 120/62 (BP Location: Right arm, Patient Position: Sitting) Pulse 81 Temp (!) 35.8 ??C (96.4 ??F) (Temporal) Ht 165.1 cm (5' 5 ) Wt 76.2 kg (168 lb) SpO2 95% BMI 27.96 kg/m?? No LMP recorded. Patient has had a hysterectomy. Physical Exam Constitutional: General: No acute distress. Appearance: Not ill-appearing. + overweight. Eyes: General: No scleral icterus. Neck: Thyroid: [...] orders for this visit: Chronic constipation (Primary) - Iron profile w/ IBC; Future No BM in six days despite continuing on Linzess 290 micro g daily and using Dulcolax suppositories p.r.n. along with taking a dose of milk of magnesia daily. She feels fine, which is good. Need to get her cleaned out or the Linzess will likely just cause chronic diarrhea/incontnene, whenever it does work. No evidence of active GI bleeding today, but will recheck her hemoglobin and iron profile in10 days. Order provided today. She will remain off of oral iron for now as it would likely only make her constipation significantly worse. If necessary in the future, will see if we can set her up for iron infusions through our infusion center. Recently received three iron infusions prior to hospital discharge. Hemoglobin remains stable today at 11.5. I provided the following written regimen to patient and her daughter and explained it in detail. If they do not feel comfortable being aggressivewith the two capfuls of MiraLax, they can stick to one cap full at a time. Instructions were given as follows: Recheck blood counts in 10 days. Follow up with me in 2 weeks. Continue to hold oral iron and we will see if we can get you approved for iron infusions through our infusion center, if iron supplementation is needed in the future. Continue Linzess without change 1 capful of Miralax= a heaping capful! Take 2 capfuls of Miralax 3 times daily for 3 days. Mix each dose with at least 300 mls of fluid. Take 2 senokot daily for 3 days. Take 2 colace daily for 3 days. On a daily basis, take Linzess each morning and try to avoid taking other meds/eating for at least 30 mins afterwards. Take 1-2 capfuls of Miralax in 250-300 mls of fluid each evening. (If you need to cut back on this,cut back on it 2nd). Take 2 Senokot every other day in the evening. Take 2 colace daily in the evening. (If you need to cut back on something, cut back on this ). You can use a Dulcolax suppository as needed if no BM in 2 days or if there is a lot of rectal pressure, but no BM. - linaCLOtide (LINZESS) 290 mcg capsule; Take 1 capsule (290 mcg total) by mouth daily before breakfast - polyethylene glycol (MIRALAX) 17 gram/dose powder; Take 1-2 capfuls of Miralax daily in the evening for additional constipation management. - docusate sodium (COLACE) 100 mg capsule; Take 1-2 pills daily in the evening for additional management of constipation - senna (SENOKOT) 8.6 mg tablet; Take 2 tablets every 2-3 days in the evening for additional management of constipation as needed. Iron deficiency anemia due to chronic blood loss Chronic anticoagulation - CBC with auto differential; Future - Iron profile w/ IBC; Future No evidence of active bleeding at this time. No evidence of active GI bleed on EGD/flexible sigmoidoscopy but she did have some rectal erosions that have the potential to bleed. Blood counts have remained stable at 11.5 since hospital discharge. Will reassess in 10 days and recheck iron levels as well. She will remain off of oral iron now due to constipation issues. Will determine if she needs any additional iron infusions based on lab results in 10 days. She received 3 of them during recent hospital stay. If hemoglobin drops again and if there are any concerns for GI bleed, may need to consider full colonoscopy and potentially a small bowel capsule study. She will remain on Eliquis and remain off of aspirin and NSAIDs. Return in about 2 weeks (around 02/01/2021) for Constipation/Anemia. Medication(s) and/or immunization(s) uses and side effects briefly discussed. Patient and her daughter both verbalize understanding of all instructions provided today and agree with plan. MEDICAL HISTORY Patient's active problem list, medical history, surgical history, social history, and family history were reviewed and updated as needed. Patient Active Problem List Diagnosis Date Noted ??? Breast cancer ([facility]) ([facility]) 10/01/2017 Priority: Medium ??? Weakness generalized 10/01/2017 Priority: Medium ? ? Nausea & vomiting 10/01/2017 Priority: Medium ??? DM (diabetes mellitus) ([facility]) 10/01/2017 Priority: Medium ??? PAF (paroxysmal atrial fibrillation) (CMS/HCC) ([facility]) 10/01/2017 Priority: Low ??? Lymphedema of both lower extremities 10/01/2017 Priority: Low ??? CATY on CPAP 10/01/2017 Priority: Low ??? Iron deficiency anemia due to chronic blood loss 01/18/2021 ??? 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 Pain and swelling of left wrist 12/25/2020 ??? Anxiety 12/24/2020 ??? Hypophosphatemia 12/23/2020 ??? Normocytic anemia 12/21/2020 ??? Urinary tract infection associated with indwelling urethral catheter (CMS/HCC) ([facility]) 12/21/2020 ??? Paroxysmal atrial fibrillation (CMS/HCC) ([facility]) 12/21/2020 ??? History of pulmonary embolism 12/21/2020 ??? Type 2 diabetes mellitus ([facility]) 12/21/2020 ??? Chronic diastolic (congestive) heart failure ([facility]) 12/21/2020 ??? Anxiety 12/21/2020 ??? CAD (coronary artery disease) 12/21/2020 ??? HTN (hypertension) 12/21/2020 ??? Occult blood in stools 12/20/2020 Added automatically from request for surgery [id number] ??? Cystitis 05/14/2019 ??? Chronic constipation 05/14/2019 ??? Recurrent inguinal hernia 05/14/2019 ??? Multiple falls ??? Fall 03/19/2019 ??? Hypokalemia 03/19/2019 ??? Hypercalcemia 03/19/2019 ??? Peripheral edema ??? Chronic diastolic congestive heart failure (CMS/HCC) ([facility]) 10/03/2017 ??? Pure hypercholesterolemia 08/30/2015 Class: Chronic PURE HYPERCHOLESTEROLEM ??? Asthma 02/17/2013 Class: Chronic Asthma ??? Hypokalemia 02/17/2013 Class: Chronic Hypokalemia ??? Chronic ischemic heart disease 11/06/2011 Class: Chronic CHR ISCHEMIC HRT DIS NOS ??? Adiposity 11/06/2011 Class: Chronic OBESITY NOS ??? Atherosclerosis of coronary artery bypass graft 07/02/2011 Class: Chronic COR ATH ARTRY BYELLY SY Past Medical History: Diagnosis Date ??? A-fib [...] Alcohol use: No ??? Drug use: No MEDICATIONS Current Outpatient Medications: ??? ALPRAZolam (XANAX) 0.25 mg tablet ??? amitriptyline (ELAVIL) 25 mg tablet ??? anastrozole (ARIMIDEX) 1 mg tablet ??? apixaban (ELIQUIS) 5 mg tablet ??? dorzolamide (TRUSOPT) 2 % ophthalmic solution ??? esomeprazole DR (NexIUM) 40 mg capsule ??? ferrous sulfate 325 mg (65 mg of elemental iron) tablet ??? flecainide (TAMBOCOR) 50 mg tablet ??? furosemide (LASIX) 40 mg tablet ??? glimepiride (AMARYL) 1 mg tablet ??? levoFLOXacin (LEVAQUIN) 500 mg tablet ??? levothyroxine (SYNTHROID) 75 mcg tablet ??? linaCLOtide (LINZESS) 290 mcg capsule ??? metOLazone (ZAROXOLYN) 2.5 mg tablet ??? potassium chloride ER (KLOR-CON) 20 mEq CR tablet ??? rosuvastatin (CRESTOR) 10 mg tablet ??? SITagliptin (JANUVIA) 100 mg tablet ??? spironolactone (ALDACTONE) 25 mg tablet ??? trospium (SANCTURA) 20 mg tablet ??? verapamil SR (CALAN SR) 120 mg CR tablet ??? bisacodyL (DULCOLAX) 10 mg suppository ??? bromfenac 0.07 % drops ??? canagliflozin (INVOKANA) 100 mg tablet ??? cholecalciferol (cholecalciferol) 25 mcg (1,000 unit) tablet ??? cyanocobalamin (Vitamin B-12) 100 mcg tablet ??? docusate sodium (COLACE) 100 mg capsule ??? insulin glargine (LANTUS, BASAGLAR, SEMGLEE) 100 unit/mL (3 mL) pen for injection ??? magnesium hydroxide (MILK OF MAGNESIA) suspension 400 mg/5 mL ??? multivitamin (ONCE DAILY) tablet tablet ??? polyethylene glycol (MIRALAX) 17 gram/dose powder ??? senna (SENOKOT) 8.6 mg tablet Medications were reviewed and updated as [...] time spent on the date of the [id number] encounter, including both [id number] time (including staff/provider time spent providing education) and hgg-hled-rm-face time (pre-charting, reviewing chart, post-charting) was 45 minutes. This note is dictated and transcribed by [employer]. Supervisor [employer] variances may occur. Despite proofreading, typographical errors may occur. My collaborating physician is Dr. Neeta Patel- Gastroenterology. Dick Bowden NP Cosigned by Neeta Patel MD at 01/21/2021 9:06 PM CDT documented in this encounter Plan of Treatment Not on file documented as of this encounter Results * (ABNORMAL) Iron profile w/ IBC (01/30/2021 8:50 AM CDT) Pathologist [facility] Iron 17(L) 35 - 145 mcg/dL [facility] ([facility]) TIBC 391 250 - 400 mcg/dL [facility] ([facility]) Transferrin saturation 4(L) 20 - 50 % [facility] ([facility]) Blood 01/30/2021 8:50 AM CDT 01/30/2021 9:01 AM CDT us Dick Simeon NP LAB BLOOD ORDERABLE S Final Result [facility] ([facility]) [address] [facility] Department [place] [address] * (ABNORMAL) CBC with auto differential (01/30/2021 8:50 AM CDT) WBC 10.2(H) 3.8 - 9.9 K/cumm [facility] ([facility]) Hgb 11.8(L) 11.9 - 15.5 g/dL [facility] ([facility]) Hct 41.0 35.6 - 45.5 % [facility] ([facility]) Plt 345 150 - 400 K/cumm [facility] ([facility]) MPV 10.1 9.1 - 12.3 fL [facility] ([facility]) RBC 5.60(H) 3.90 - 5.20 M/cumm [facility] ([facility]) MCV 73.2(L) 81.3 - 96.4 fL [facility] ([facility]) MCH 21.1(L) 27.1 - 33.3 pg [facility] ([facility]) MCHC 28.8(L) 32.3 - 35.7 g/dL [facility] ([facility]) RDW CV 19.1(H) 11.1 - 14.9 % [facility] ([facility]) RDW SD 49.1(H) 35.7 - 48.1 fL [facility] ([facility]) NRBC abs 0.00 0.00 - 0.01 K/cumm [facility] ([facility]) Blood 01/30/2021 8:50 AM CDT 01/30/2021 9:01 AM CDT Dick Simeon MASTER SONAR TECHNICIAN LAB BLOOD ORDERABLE S Final Result [facility] ([facility]) [address] [facility] Department [place] [address] documented in this encounter Visit Diagnoses Diagnosis Chronic constipation- Primary Unspecified constipation Iron deficiency anemia due to chronic blood loss Iron deficiency anemia secondary to blood loss (chronic) Chronic anticoagulation Encounter for long-term (current) use of anticoagulants documented in this encounter Discontinued Medications Medication Sig Discontinue Reason Start Date End Da te linaCLOtide (LINZESS) 290 mcg capsuleIndications:chron ic idiopathic constipation Take 1 capsule (290 mcg total) by mouth daily before breakfast Reorder 12/29/2020 01/18/2021 documented as of this encounter Historical Medications * This list may reflect changes made after this encounter. ferrous sulfate 325 mg (65 mg of elemental iron) tablet Take 325 mg by mouth 12/14/2020 3 glimepiride (AMARYL) 1 mg tablet 2 mg w/ breakfast , 2 mg with lunch and 1 mg with dinner Po 09/11/2020 3 trospium (SANCTURA) 20 mg tablet Take 20 mg by mouth 2 (two) times a day 01/04/2021 3 SITagliptin (JANUVIA) 100 mg tablet Take 1 tablet (100 mg total) by mouth daily 4 metOLazone (ZAROXOLYN) 2.5 mg tablet TAKE 1 TABLET (2.5 MG TOTAL) BY MOUTH 2 (TWO) TIMES A WEEK 01/04/2021 1 levoFLOXacin (LEVAQUIN) 500 mg tablet Take 500 mg by mouth daily 01/11/2021 3 added in this encounter Care Teams Sales Development Director Relationship Specialty Start Date End Date Theresa Camargo MD PCP - General 09/29/18 12/05/22 Laz Valencia MD Consulting Physician Cardiology 03/22/19 12/05/22 Migue Herman MD Consulting Physician Urology 05/16/19 Sonny Palmer MD Surgeon General Surgery 05/16/19 documented as of this encounter
--- OUTSIDE RECORDS SUMMARY | 2024-05-26 12:59 | XMS_ITS | Encounter Summary ---
Author Organization [facility] Healthcare Address [address] [place] [address] Care Team Providers Care Back Sizer Name Role Phone Theresa Camargo MD Primary Care Provider Laz Valencia MD Unavailable [phone] Migue Herman MD Unavailable [phone] Sonny Palmer MD Unavailable [phone] Encounter Details Date Type Department Care Team (Late st Contact Info) Description 12/27/2020 3:40 PM CDT Anesthesia Event [address] [address] [place] [address] [address] [place] [address] [address] [facility] [address] [place] [address] Anesthesia Record Procedure Summary Procedure Name Responsible Anesthesiologist Anesthesia Start Time Anesthesia Stop Time SIGMOIDOSCOPY Chapincito Rios MD 12/27/20 1540 1554 Events Date Time Event Comment 12/27/2020 1515 1540 An Start 1540 An Start Data 1540 Start Supplemental O2 1540 Patient Positioned Laterally 1540 In Room 1543 An Induction The patient was reevaluated immediately before moderate or deep sedation use and before anesthesia induction. 1544 Anesthesia Ready 1554 an stop data 1554 Handoff to RN I completed my handoff to the receiving nurse during which we: 1. Patient identified 2. Responsible provider identified 3. Pertinent medical history reviewed 4. Procedure type and surgical course discussed 5. Intraoperative anesthetic management and any significant issues discussed 6. Expectations and concerns for postop period discussed 7. Questions solicited from receiving nurse 8. Patient disposition at the time of handoff: No value filed. 1554 An Stop 1555 Out of Room Meds Name Total propofol 120 mg lidocaine 2 % PF 80 mg sodium chloride 0.9% infusion 200 mL * Agents Name O2 * Blood No blood administrations on file. Lines, Drains, and Airways Type Details Placement Removal Urethral Catheter Type: Latex; Size: 2 0 Fr.; Balloon Size: 30 mL; Removal Date: 01/20/21; Removal Time: 1355 12/21/20 0702 by 01/20/21 1355 by Torri Narvaez RN RETIRED Wound 12/20/20; 1855; No; Ulceration (non-pressure ulcer); Left, Right; Buttocks; Shearing like; 04/20/24 (Retired LDA, Removed/Completed by [facility] with LDA Utility); 1213 (Retired LDA, Removed/Completed by [facility] with LDA Utility) 12/20/20 185 by Bonny Boone RN 04/20/24 1213 by Discharge Provider, Automatic Peripheral IV Placement Date: 12/26/20; Placement Time: 2257; Existing LDA Placed by: Other (Comment); Catheter Size: 22 G; Orientation: Distal, Posterior, Right; Location: Forearm; Site Prep: Chlorhexidine; Technique: Anatomical landmarks; Inserted by: Jason Boone Rn; Insertion Attempts: 1; Patient Tolerance: Tolerated well; Removal Date: 12/28/20; Removal Time: 1434 12/26/202257 by Bonny Boone RN 12/28/20 143 by Teagan Galicia RN documented in this encounter Social History [...] often do you attend chur ch or nondenominational services? 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 Gender Identity Not on file Sexual Orientation Not on file documented as of this encounter OR Notes * Anesthesia Postprocedure Evaluation - Chapincito Rios MD - 12/27/2020 4:12 PM CDT Patient: Perla Leon Procedure Summary Date: 12/27/20 Room / [facility] Anesthesia Start: 1540 Anesthesia Stop: 1554 Procedure: SIGMOIDOSCOPY (N/A ) Diagnosis: Constipation, unspecified constipation type (Constipation, unspecified constipation type [K59.00]) Providers: Neeta Patel MD Responsible Provider: Chapincito Rios MD Anesthesia Type: general/TIVA ASA Status: 4 - Emergent Anesthesia Type: general/TIVA Last vitals BP 106/47 Pulse 67 Temp 36.4 ??C (97.5 ??F) (Temporal) Resp 18 SpO2 97% Anesthesia Post Evaluation Patient location during evaluation: PACU Patient participation: complete - patient participated Level of consciousness: fully awake Pain score: 0 Pain management: adequate Airway patency: adequate Evidence of recall: no Cardiovascular status: acceptable Respiratory status: acceptable Hydration status: acceptable Pt is: normothermic Nausea/Vomiting status: none No complications documented. * Anesthesia Preprocedure Evaluation - Chapincito Rios MD - 12/27/2020 1:56 PM CDT Images from the original note were not included. Anesthesia Evaluation Perla Leon is a 80 y.o. female Procedure(s): SIGMOIDOSCOPY Pre-Op Diagnosis Codes: * Anemia, unspecified type [D64.9] * Occult blood in stools [R19.5] HISTORY HPI Perla Leon is a 80 y.o. female with a PMHx of recent saddle PE, A-fib, mild to intermediate CAD,HLD, hereditary spastic paraplegia with chronic olivas, CATY, diastolic heart failure, breast cancer,DM type II, TIA, neuropathy, chronic constipation,and hypothyroidism who presented to the ED with c/o generalized weakness Past Medical History Information obtained from: patient and chart. Neurological + TIA Number of TIA episodes: 2. Date of last TIA: 2004. + Neuromuscular disease (hereditary spastic paraplegia) Cardiovascular + Hypertension + Hyperlipidemia + CAD + CHF DIASTOLIC HF ONLY. + Atrial fibrillation/flutter - Rhythm type: paroxysmal (multiple episodes < 7 days). 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 Comments: Conclusions: Mild concentric left ventricular hypertrophy. Hyperdynamic left ventricular function. No focal wall motion abnormalities. Diastolic dysfunction is present. Ejection fraction is visually estimated at 70 to 75 %. Normal structure of the mitral valve. Trivial regurgitation of the mitral valve. No evidence of hemodynamically significant aortic stenosis by Doppler. Mildly elevated AV velocity is likely due to hyperdynamic LV function. Peak velocity AOV of 2.1 m/sec. Peak gradient of 18.0 mmHg. Aortic cusps appear mildly sclerotic. Normal structure of the tricuspid valve. Trivial regurgitation in the tricuspid valve. Electronically Signed By: Dr Nelson Corona 2017-10-03 17:34:27 CDT Respiratory + Sleep apnea (CATY) Prescribed device: CPAP. Hepatic / Heme + History of anemia Gastrointestinal + GERD - on daily therapy. Musculoskeletal/Pain + Osteoarthritis Endocrine / Other + Diabetes mellitus - Diabetes type 2. Outpatient insulin use: current. + Thyroid disease - hypothyroidism + Cancer history- in remission. Cancer type: breast. Pertinent negatives: obesity (BMI >30) Functional Capacity Functional capacity: <4 METs Functional capacity limited by a non-cardiovascular, non-pulmonary condition. ECG 12 lead Order: [id number] Status: Final result ?Visible to patient: Yes (MyChart) Next appt: 01/08/2021 at 02:00 PM in Cardiology (Laz Valencia MD) 0 Result Notes Details Narrative Vent Rate: 77 bpm RR Interval: 771 msec AK Interval: 192 msec QRS Duration: 112 msec QT Interval: 415 msec QTC Interval: 447 msec P-R-T Hoffman: 46 - -28 - 55 degrees ?? SINUS RHYTHM BORDERLINE LEFT AXIS DEVIATION [QRS AXIS < -20] MODERATE INTRAVENTRICULAR CONDUCTION DELAY [110+ ms QRS DURATION] BORDERLINE ECG No change from prior EKG ?? Electronically Signed By: Laz Valencia MD Specimen Collected: 12/21/20 10:33 Last Resulted: 12/21/20 11:28 Patient Active Problem List Diagnosis ??? Asthma [...] Recurrent inguinal hernia ??? Normocytic anemia ??? Urinary tract bacterial infections ??? Paroxysmal atrial fibrillation (CMS/HCC) (HCC) ??? History of pulmonary embolism ??? Type 2 diabetes mellitus (HCC) ??? Chronic diastolic (congestive) heart failure (HCC) ??? Anxiety ??? CAD (coronary artery disease) ??? HTN (hypertension) ??? Occult blood in stools ??? Hypophosphatemia ??? Anxiety ??? Constipation ??? Pain and swelling of left wrist Past Medical History: Diagnosis Date ??? A-fib [...] BILATERAL SALPINGOOPHORECTOMY 1980 Hysterectomy, total abdominal, BSO OB History No obstetric history on file. Allergies Allergen Reactions ??? Donepezil Other (See comments) Reaction: unknown reaction, , , Reaction: yeast infection, ??? Black Pepper ??? Diltiazem Edema, Diarrhea and Other (See comments) Reaction: edema, , Reaction: diarrhea, , , Reaction: ankles swell, ??? Fluticasone Other (See comments) Reaction: colon problems, ??? Metformin Diarrhea Reaction: diarrhea, , ??? Salmeterol Other (See comments) Reaction: colon problems, Taking? Last Dose Start Date End Date Provider amitriptyline (ELAVIL) 25 mg tablet 03/31/19 -- Desiree Walker MD anastrozole (ARIMIDEX) 1 mg tablet -- -- Desiree Walker MD apixaban (ELIQUIS) 5 mg tablet -- -- Desiree Walker MD aspirin (ASPIRIN LOW DOSE) 81 mg tablet 02/16/16 -- Julian Payne MD take 1 tablet by oral route every day bromfenac 0.07 % drops -- -- Desiree Walker MD canagliflozin (INVOKANA) 100 mg tablet -- -- ProviderDesiree MD cholecalciferol (cholecalciferol) 25 mcg (1,000 unit) tablet -- -- ProviderDesiree MD cyanocobalamin (Vitamin B-12) 100 mcg tablet -- -- Desiree Walker MD dorzolamide (TRUSOPT) 2 % ophthalmic solution -- -- Desiree Walker MD esomeprazole DR (NexIUM) 40 mg capsule -- -- Desiree Walker MD flecainide (TAMBOCOR) 50 mg tablet -- -- Desiree Walker MD furosemide (LASIX) 40 mg tablet 12/27/20 -- Laz Valencia MD TAKE 1 TABLET DAILY glimepiride (AMARYL) 1 mg tablet -- -- Desiree Walker MD insulin glargine (LANTUS, BASAGLAR, SEMGLEE) 100 unit/mL (3 mL) pen for injection -- -- Desiree Walker MD levothyroxine (SYNTHROID) 75 mcg tablet -- -- Desiree Walker MD multivitamin (ONCE DAILY) tablet tablet 07/01/16 -- Elle Sadler MD take 1 tablet by oral route every day with food potassium chloride ER (KLOR-CON) 20 mEq CR tablet -- -- Desiree Walker MD rosuvastatin (CRESTOR) 10 mg tablet -- -- Desiree Walker MD SITagliptin (JANUVIA) 100 mg tablet -- -- Desiree Walker MD spironolactone (ALDACTONE) 25 mg tablet 04/04/20 -- Laz Valencia MD Take 1 tablet (25 mg total) by mouth daily verapamil SR (CALAN SR) 120 mg CR tablet -- -- Desiree Walker MD wheat dextrin 3 gram/3.5 gram powder in packet -- -- Desiree Walker MD No current facility-administered medications for this visit. Current Outpatient Medications: ??? furosemide (LASIX) 40 mg tablet Facility-Administered Medications Ordered in Other Visits: ??? acetaminophen (TYLENOL) tablet 500 mg, 500 mg, oral, Q4H PRN, 500 mg at 12/25/202250 ??? ALPRAZolam (XANAX) tablet 0.25 mg, 0.25 mg, oral, BID PRN, 0.25 mg at 12/25/202251 ??? amitriptyline (ELAVIL) tablet 50 mg, 50 mg, oral, Nightly, 50 mg at 12/26/202031 ??? amoxicillin (AMOXIL) tablet/capsule 500 mg, 500 mg, oral, TID, 500 mg at 12/27/20838 ??? anastrozole (ARIMIDEX) tablet 1 mg, 1 mg, oral, Daily, 1 mg at 12/27/20838 ??? apixaban (ELIQUIS) tablet 5 mg, 5 mg, oral, Q12H KATHARINE, 5 mg at 12/27/20837 ??? bisacodyL (DULCOLAX) suppository 10 mg, 10 mg, rectal, Nightly, 10 mg at 12/26/202032 ??? bromfenac 0.07 % drops 1 drop, 1 drop, ophthalmic, BID, 1 drop at 12/27/20837 ??? canagliflozin (INVOKANA) tablet 100 mg, 100 mg, oral, Before breakfast, 100 mg at 12/27/20 0607 ??? cholecalciferol (VITAMIN D-3) tablet 1,000 Units, 1,000 Units, oral, Daily, 1,000 Units at 12/27/20838 ??? cyanocobalamin (Vitamin B-12) tablet 250 mcg, 250 mcg, oral, Daily, 250 mcg at 12/27/20838 ??? dextrose gel in packet 15 g, 15 g, oral, Q15 Min PRN OR dextrose (D10W) 10% bolus 250 mL, 250 mL, intravenous, Q15 Min PRN ??? docusate sodium (COLACE) capsule 100 mg, 100 mg, oral, BID PRN, 100 mg at 12/27/20605 ??? dorzolamide (TRUSOPT) 2 % ophthalmic solution 1 drop, 1 drop, each eye, BID, 1 drop at ??? flecainide (TAMBOCOR) tablet 50 mg, 50 mg, oral, BID, 50 mg at 12/27/20837 ??? furosemide (LASIX) tablet 40 mg, 40 mg, oral, Daily, 40 mg at 12/27/20837 ??? glucagon injection 1 mg, 1 mg, intramuscular, Q30 Min PRN ??? insulin glargine (LANTUS, BASAGLAR, SEMGLEE) 100 unit/mL (3 mL) pen injection 8 Units, 8 Units,subcutaneous, QAM, 8 Units at 12/27/20841 ??? insulin lispro (HumaLOG, ADMELOG) 100 unit/mL pen injection 1-3 Units, 1-3 Units, subcutaneous,Nightly ??? insulin lispro (HumaLOG, ADMELOG) 100 unit/mL pen injection 1-5 Units, 1-5 Units, subcutaneous,TID with meals, 1 Units at 12/26/203 ??? levothyroxine (SYNTHROID) tablet 75 mcg, 75 mcg, oral, Daily - 0600, 75 mcg at 12/27/20605 ??? linaCLOtide (LINZESS) capsule 290 mcg, 290 mcg, oral, Before breakfast, 290 mcg at 12/27/20605 ??? magnesium hydroxide (MILK OF MAGNESIA) 80 mg/mL (33.3 mg/mL as elemental magnesium) oral suspension 30 mL, 30 mL, oral, Daily, 30 mL at 12/27/20837 ??? multivit oxhjjhtm-osuu-LE-calcium (THERA-M) tablet 1 tablet, 1 tablet, oral, Daily, 1 tablet at12/27/20 0838 ??? ondansetron ODT (ZOFRAN-ODT) disintegrating tablet 4 mg, 4 mg, oral, Q4H PRN, 4 mg at 12/25/20 1230 ??? pantoprazole DR (PROTONIX) extended release tablet 40 mg, 40 mg, oral, Daily, 40 mg at ??? potassium chloride ER (KLOR-CON) extended release tablet 20 mEq, 20 mEq, oral, QID, 20 mEq at 12/27/20 1245 ??? rosuvastatin (CRESTOR) tablet 10 mg, 10 mg, oral, Nightly, 10 mg at 12/26/202031 ??? senna-docusate (PERICOLACE) 8.6-50 mg per tablet 1 tablet, 1 tablet, oral, BID PRN, 1 tablet at12/27/20 0606 ??? sodium chloride 0.9% flush 0.5-20 mL, 0.5-20 mL, intra-catheter, PRN ??? sodium chloride 0.9% flush 0.5-20 mL, 0.5-20 mL, intra-catheter, Q12H, 10 mL at 12/27/20 0842 ??? spironolactone (ALDACTONE) tablet 25 mg, 25 mg, oral, Daily, 25 mg at 12/27/20 0839 ??? verapamil SR (CALAN SR) extended release tablet 120 mg, 120 mg, oral, Nightly, 120 mg at 12/26/202031 Social History Tobacco Use Smoking Status Never Smoker Smokeless Tobacco Never Used Substance and Sexual Activity Alcohol Use No Substance and Sexual Activity Drug Use No Family History Problem Relation Age of Onset ??? Breast cancer Mother Cancer, breast; /Cancer -breast; ??? Heart failure Father Congestive heart failure; ??? Hypertension Brother Hypertension; ??? Hypertension Brother Hypertension; There were no vitals filed for this visit. PT: 12/20/2020: 19.5 sec* INR: 12/20/2020: 1.8* APTT: No results found for requested labs within last 720 hours. Hgb A1C: No results found for requested labs within last 720 hours. CBC RBC: 12/27/2020: 4.24 M/cumm RDW: No results found for requested labs within last 720 hours. MCHC: 12/27/2020: 28.0 g/dL* MCH: 12/27/2020: 22.6 pg* MCV: 12/27/2020: 80.9 fL* Hct: 12/27/2020: 34.3 %* Hgb: 12/27/2020: 9.6 g/dL* WBC: 12/27/2020: 10.6 K/cumm* MPV: 12/27/2020: 9.8 fL Platelets: 12/27/2020: 268 K/cumm RDW CV: 12/27/2020: 20.5 %* RDW Sd: 12/27/2020: 58.6 fL* BMP Glucose: 12/27/2020: 136 mg/dL* Calcium: 12/27/2020: 9.6 mg/dL Sodium: 12/27/2020: 135 mmol/L Potassium: 12/27/2020: 4.5 mmol/L CO2: 12/27/2020: 25 mmol/L Chloride: 12/27/2020: 103 mmol/L BUN: 12/27/2020: 19 mg/dL Creatinine: 12/27/2020: 0.72 mg/dL DOS Physical Exam Medical history, medications, and allergies reviewed. Attestation: I endorse the findings of the anesthesia pre-evaluation assessment dated: 12/27/2020. Airway Exam: Mallampati: II Cervical ROM: FROM TM distance: >4 Jaw ROM: full Cardiovascular Exam: Rate: regular Rhythm: regular Murmur: grade III/ and MARY Pulmonary Exam: LCTA, bilat EENT Exam: trachea midline Dental Exam: Appears intact Skin Exam: Skin is warm. Current state: Patient's current state is cooperative. Anesthesia Plan ASA 4- emergent My patient is approved for the Anesthesia Controlled Medication protocol when under care of a VISUAL ARTIST Planned anesthesia: General/TIVA Induction: Induction: intravenous. Postoperative Plan: No plan for postoperative opioid use. No postoperative mechanical ventilation intended. Patient's planned disposition post procedure is Floor. Informed Consent: Discussed plan with VISUAL ARTIST and attending. Anesthesia plan and risks discussed with patient. Consent and Attending signature: I and/or my designee have discussed the anesthesia plan, benefits, possible alternatives, parental presence at time of induction (if indicated), and clinically relevant risks that may include dental injury, unintentional awareness, and/or other complications. The patient and/or parent/legal guardian understand, and agree to proceed. All questions answered. documented in this encounter Plan of Treatment Not on file documented as of this encounter Visit Diagnoses Not on filedocumented in this encounter Administered Medications Inactive Administered Medications - up to 3 most recent administrations Medication Order MAR Action Action Date Dose Rate Site lidocaine (XYLOCAINE) 20 mg/mL (2 %) preservative free injection epidural, As needed, Starting on Fri12/27/20 at 1543, Anesthesia Intra-op Given 12/27/2020 3:43 PM CDT 80 mg propofoL (DIPRIVAN) 10 mg/mL IV intravenous, As needed, Starting on Fri12/27/20 at 1543, Anesthesia Intra-op Given 12/27/2020 3:51 PM CDT 20 mg Given 12/27/2020 3:48 PM CDT 10 mg Given 12/27/2020 3:46 PM CDT 20 mg sodium chloride 0.9% infusion 30 mL/hr, intravenous, Continuous, Starting on Fri12/27/20 at 1600, Pre-Procedure (GI) Rate/Dose Verify 12/27/2020 3:40 PM CDT 30 mL/hr New Bag 12/27/2020 3:20 PM CDT 30 mL/hr 30 mL/hr documented in this encounter Care Teams Back Sizer Relationship Specialty Start Date End Date Theresa Camargo MD PCP - General 09/29/18 12/05/22 Laz Valencia MD Consulting Physician Cardiology 03/22/19 12/05/22 Migue Herman MD Consulting Physician Urology 05/16/19 Sonny Palmer MD Surgeon General Surgery 05/16/19 documented as of this encounter
--- OUTSIDE RECORDS SUMMARY | 2024-05-26 13:00 | XMS_ITS | Encounter Summary ---
Author Organization [facility] Healthcare Address [address] [place] [address] Care Team Providers Care Director Internal Control Name Role Phone Destiney Camargo MD Primary Care Provider Landon Valencia MD Unavailable [phone] Migue Herman MD Unavailable [phone] Sonny Palmer MD Unavailable [phone] Reason for Visit * Reason Comments Weakness - Generalized Encounter Details Date Type Department Care Team (Latest Contact Info) Description 12/22/2020 12:05 PM CDT - 12/22/2020 12:35 PM CDT Surgery [facility] Digestive [facility] [address] [place] [address] Neeta Patel MD [address] [place] [address] [id number] ESOPHAGOGASTRODUODENOSCOPY BIOPSY Surgery Details Date/Time Status Location OR Service Patient Class Case Class Case Type Trauma Case? 12/22/2020 12:05 PM Posted [facility] ENDOSCOPY GI 01 Gastroenterology Inpatient Emergent Panel 1 Procedure LRB Anes Op Region Wound Class Comments ESOPHAGOGASTRODUODENOSCOPY BIOPSY N/A Monitor Anesthesia Care Surgeon Surgeon Role Service Panel Neeta Patel MD Primary Gastroenterology 1 documented in this encounter Social History Tobacco Use Types Packs/Day Years Used Date Smoking Tobacco: Never Smokeless Tobacco: Never Alcohol Use Standard Drinks/Week Comments No 0 (1 standard drink = 0.6 oz pur e alcohol) PHQ-2 Answer Date Recorded PHQ-2 Score 0 03/06/2019 Comments No Sex and Gender Information Value Date Recorded Sex Assigned at Not on file Legal Sex Female 6:56 PM TOP CAGER Gender Identity Not on file Sexual Orientation Not on file documented as of this encounter Last Filed Vital Signs Vital Sign Reading Time Taken Comments Blood Pressure 95/48 12/22/2020 12:15 PM CDT Pulse 72 12/22/2020 12:15 PM CDT Temperature 36.8 ??C (98.3 ??F) 12/22/2020 12:15 PM C DT Respiratory Rate 18 12/22/2020 12:15 PM CDT Oxygen Saturation 95% 12/22/2020 12:15 PM CDT Inhaled Oxygen Concentration - - Weight 77 kg (169 lb 11.2 oz) 12/21/2020 12:00 A M CDT Height 165.1 cm (5' 5 ) 12/21/2020 12:00 AM CDT Body Mass Index 28.24 12/21/2020 12:00 AM CDT documented in this encounter Discharge Summaries * Nina Larsen MD - 12/28/2020 12:57 PM CDT Inpatient Discharge Summary BRIEF OVERVIEW Admitting Provider: Wayne Snow MD Discharge Provider: Nina Larsen MD Primary Care Physician at Discharge: Destiney Camargo MD [phone] Admission Date: 12/20/2020 Discharge Date: 12/28/2020 Admission Location: [facility] Problems/Diagnoses: Principal Problem: Normocytic anemia Active Problems: [...] SIGMOIDOSCOPY Other Procedures: None. Pertinent Test Results: [facility] LOC Salazar ( ) as of 12/28/2020 [...] Home Health Primary disciplines requested: Physical Therapy [facility]: Therapy to Eval/ Treat [...] the skin every morning Commonly known as: LANTLOPEZ COOK SEMGLEE levothyroxine 75 mcg tablet Take 1 tablet (75 mcg total) by mouth family services worker before breakfast Commonly known as: SYNTHROID linaCLOtide [...] Center 01/08/2021 2:00 PM Landon Valencia MD [facility] Decent 08/06/2021 11:15 AM Landon Valencia MD [facility] PSA Decent Contact Information for Follow-ups Destiney Camargo MD Specialty: Internal Medicine Relationship: PCP - General Surinder KRUGER [address] [facility] [address] Next Steps: Follow up on 12/29/2020 Instructions: 10:40 AM [facility] Home Care Services Specialty: Home Health and Hospice [address] [address] Next Steps: Follow up Questions: Service Line: Home Health Primary disciplines requested: Physical Therapy [facility]: Therapy to Eval/ Treat [...] Scheduled Destiney Camargo MD Specialty: Internal Medicine [id number] KRUGER [address] [facility] [address] Next Steps: Follow up Instructions: Follow-up with Dr. Camargo in 1 week. Call for appointment. Questions: Instructions for follow-up (appointment date and time): Follow-up with Dr. Camargo in 1 week. Call for appointment. To provider: DESTINEY CAMARGO Saad R., MD Specialty: Cardiology, Cardiovascular Disease, Internal Medicine, Interventional Cardiology [address] [facility] [address] [facility] [address] Next Steps: Follow up Instructions: Follow-up with Dr. Valencia as scheduled on 01/08/2021. Questions: To provider: LANDON VALENCIA Instructions for follow-up (appointment date and time): Follow-up with Dr. Valencia as scheduled on 01/08/2021. Total time spent on discharge: 45 minutes. Nina Larsen MD Director of Family Medicine Inpatient Services Washer Machine, [facility] documented in this encounter Discharge Instructions [...] ask them during your visits. ?? 2017 [employer] Information is for End User's use only and may not be sold, redistributed or otherwise used for commercial purposes. All illustrations and images included in CareNotes?? are the copyrighted property of [employer]. or [employer]. The above information is an medicaid billing clerk only. It is not intended as medical [...] was ALWAYS EXCELLENT! Please call IMU at [phone] if you have any questions regarding your care. Wishing you continued improvement during your recovery. Your Intermediate Care Unit Team * Attachments The following attachments cannot be sent through Care Everywhere. * Magnesium (By mouth) (Dutch) * Linaclotide (By mouth) (Dutch) * Bisacodyl (By mouth) (Dutch) * Amoxicillin (By mouth) (Dutch) * Alprazolam (By mouth) (Dutch) * Heart Healthy Diet (Discharge Care) (Dutch) * Heart Failure (Discharge Care) (Dutch) documented in this encounter Medications at Time [...] rectum nightly 12 suppository 1 12/07/19 23 canagliflozin (INVOKANA) 100 mg tabletIndications [...] 1 tablet (75 mcg total) by mouth family services worker before breakfast 30 tablet 1 03/04/20 24 [...] 1 tablet (75 mcg total) by mouth family services worker before breakfast 30 tablet 1 03/04/20 24 apixaban (ELIQUIS) 5 mg tablet Take 1 tablet (5 mg total) by mouth 2 (two) times a day 60 tablet 1 08/11/19 22 documented in this encounter Discharge Disposition Disposition Code Departure Means Destination Discharge to home, home health skilled care documented in this encounter Progress Notes * Trina Benitez RN - 12/28/2020 11:16 AM CDT Reassessment completed. Plan continues to be for patient to go home with . [facility] is alreadyset up with RN/PT on d/c. No other anticipated needs at this time. CM will continue to follow. 12/28/20 1116 Discharge Planning Support System Spouse/Significant Other;Children;Family members Home Care Services Yes Type of Home Care Services adoption social worker;Home therapies;Nurse visit Home care service name and phone number [facility] RN/PT Patient expects to be discharged to: [...] upright posture;Increase step length;Use assistive device safely (pick up truck driver feet) Quality of Gait 1 dec; step [...] this the discharge summary Recommendation/Plan PT Recommendation/Plan [facility] PT Recommendation/Plan Comments if pt is DC to home will need 24 hr care, [facility] PT PT Frequency Daily Treatment/Interventions Bed mobility;Functional transfer training;Gait training;Therapeutic exercise PT Equipment Recommended None (pt owns and uses a sw and a fww) Multi-Disciplinary Problems (from Physical Therapy) Active Problems Problem: [place] [facility] Start Date: 12/22/20 Goal Start Date Expected End Date End Date PT [facility] - [facility] 1 12/22/20 12/28/20 -- Goal Details: Supine to/from sit with min assist Goal Start Date Expected End Date End Date PT [facility] - Mis 2 12/22/20 12/28/20 -- Goal Details: Sit to/from stand with cg assist Goal Start Date Expected End Date End Date PT [facility] - Mis 3 12/22/20 12/28/20 -- Goal Details: Bed to/from chair with cg assist Goal Start Date Expected End Date End Date PT [facility] - [facility] 4 12/22/20 12/28/20 -- Goal Details: Ambulate 40' with wheeled walker with cg assist Goal Start Date Expected End Date End Date PT [facility] 5 12/22/20 12/28/20 -- Goal Details: HEP with LE's with cg assist x10 reps * Nina Larsen MD - 12/28/2020 10:46 AM CDT [facility] Hospitalist Service Progress Note Patient Name: Loc Anderson Patient : 1940 Age/Sex: 80 y.o. female Room/Bed: [id number] Admission Date/Time: 12/20/2020 3:09 PM Date: 12/28/2020 [...] Rate: 77 bpm RR Interval: 771 msec DE Interval: 192 msec QRS Duration: 112 msec QT Interval: 415 msec QTC Interval: 447 msec P-R-T [place]: 46 - -28 - 55 degrees SINUS RHYTHM BORDERLINE LEFT AXIS DEVIATION [QRS AXIS < -20] MODERATE INTRAVENTRICULAR CONDUCTION DELAY [110+ ms QRS DURATION] BORDERLINE ECG No change from prior EKG Electronically Signed By: Landon Valencia MD ECG 12 lead Result Date: 12/21/2020 Narrative: Vent Rate: 81 bpm RR Interval: 736 msec DE Interval: 162 msec QRS Duration: 119 msec QT Interval: 326 msec QTC Interval: 363 msec P-R-T [place]: -11 - -39 - 35 degrees Probable [...] Keyshawn Cummings M.D. LEIGH: LEIGH Report ID: [id number] Reading Location: [id number] XR Abdomen Ap 1 Vw Result Date: [...] signed by Keyshawn ABRAHAM: LEIGH Report ID: [id number] Reading Location: [id number] CT Abdomen Pelvis W Contrast Result Date: 12/20/2020 Narrative: EXAM DESCRIPTION: CT ABDOMEN PELVIS W CONTRAST REASON FOR STUDY: asthma, PNA, CAD, CHF, A-fib, HTN, HLD, and DM who presents to the ED via EMS and accompanied by her daughter c/o generalized weakness for approximately 3 days PSH cade hernia ike 100 ml optiray 60052 g r FA Duration: 3 days TECHNIQUE: [...] Deborah Garcia M.D. TS: SHANNON Report ID: [id number] Reading Location: [id number] XR Chest 1 Vw Portable Result Date: [...] signed by Noah JACKSON: RENETTA Report ID: [id number] Reading Location:[id number] US Carotids Duplex Bilateral Result Date: 12/25/2020 [...] Hilario Bolanos M.D. AG: SORAIDA Report ID: [id number] Reading Location: [id number] Microbiology: COVID-19 RNA negative. H pylori negative. [...] ? MDM:?Moderate. Nina Larsen MD Director of Family Medicine Inpatient Services Washer Machine, [facility] 12/28/2020 10:46 AM * Phyllis Young, [...] Jessica Landrum, PT, DPT * Noah Foley [facility] - 12/27/2020 2:13 PM CDT Ashlee Avila, pharmacy order entry technician, counseled the patient for apixaban and gave [...] oral TID Willie Aly MD 500 mgat 12/27/20 08 ??? anastrozole (ARIMIDEX) tablet 1 mg 1 mg oral Daily Neeta Patel MD 1 mg at 12/27/20 08 ??? apixaban (ELIQUIS) tablet 5 mg 5 mg oral Q[facility]H [facility] Neeta Patel MD 5 mg at 12/27/20 0838 ??? bisacodyL (DULCOLAX) suppository 10 mg 10 [...] Before breakfast Neeta Patel MD 290mcg at 12/27/20605 ??? magnesium hydroxide (MILK OF MAGNESIA) 80 mg/mL (33.3 mg/mL as elemental magnesium) oral suspension 30 mL 30 mL oral Daily Neeta Patel MD 30 mL at 12/27/20 08 ??? multivit awqnteob-ubxk-KE-calcium (THERA-M) tablet 1 tablet 1 tablet oral [...] PRN Wayne Snow MD 1 tablet at 12/27/20605 ??? sodium chloride 0.9% flush 0.5-20 mL [...] than three times a week ??? Attends Muslim Services: Never ??? Active Member of Clubs [...] stable. Follow CBC trend. Jaylin Reynolds NP [facility] [phone] * Kyleigh Robles - 12/27/2020 8:51 AM CDT Nutrition [...] Constipation Evidenced by: Physical finding ?? Interventions: [place] diet preferences within the limits of nutrition [...] 29.9 Overweight 3 Day I/O Summary 12/25 1899 - 12/27 0659 In: - Out: 4950 [...] Wound (LDA): Wound Nutrition Follow-Up : 01/01/21 Kyleihg Robles, RD LDN * Nina Larsen MD - 12/27/2020 8:38 AM CDT [facility] Hospitalist Service Progress Note Patient Name: Loc Anderson Patient : 1940 Age/Sex: 80 y.o. female Room/Bed: [id number] Admission Date/Time: 12/20/2020 3:09 PM Date: 12/27/2020 [...] Rate: 77 bpm RR Interval: 771 msec DE Interval: 192 msec QRS Duration: 112 msec QT Interval: 415 msec QTC Interval: 447 msec P-R-T [place]: 46 - -28 - 55 degrees SINUS RHYTHM BORDERLINE LEFT AXIS DEVIATION [QRS AXIS < -20] MODERATE INTRAVENTRICULAR CONDUCTION DELAY [110+ ms QRS DURATION] BORDERLINE ECG No change from prior EKG Electronically Signed By: Landon Valencia MD ECG 12 lead Result Date: 12/21/2020 Narrative: Vent Rate: 81 bpm RR Interval: 736 msec DE Interval: 162 msec QRS Duration: 119 msec QT Interval: 326 msec QTC Interval: 363 msec P-R-T [place]: -11 - -39 - 35 degrees Probable [...] Keyshawn Cummings M.D. LEIGH: LEIGH Report ID: [id number] Reading Location: [id number] XR Abdomen Ap 1 Vw Result Date: [...] Keyshawn Cummings M.D. LEIGH: LEIGH Report ID: [id number] Reading Location: [place] [address] CT Abdomen Pelvis W Contrast Result Date: 12/20/2020 Narrative: EXAM DESCRIPTION: CT ABDOMEN PELVIS W CONTRAST REASON FOR STUDY: asthma, PNA, CAD, CHF, A-fib, HTN, HLD, and DM who presents to the ED via EMS and accompanied by her daughter c/o generalized weakness for approximately 3 days PSH cade hernia ike 100 ml optiray 43723 g r FA Duration: 3 days TECHNIQUE: [...] Deborah Garcia M.D. TS: SHANNON Report ID: [id number] Location: [id number] XR Chest 1 Vw Portable Result Date: [...] Noah Cuba M.D. MJ: RENETTA Report ID: [id number] Reading Location:[place] [address] [place] Carotids Duplex Bilateral Result Date: 12/25/2020 [...] Hilario Bolanos M.D. AG: SORAIDA Report ID: [id number] Reading Location: [place] [address] Microbiology: COVID-19 RNA negative. H pylori negative. [...] to follow. ?? Paroxysmal atrial fibrillation (CMS/HCC) ([facility]) Remains stable. Heart rate controlled. Will continue [...] MD Director of Family Medicine Inpatient Services Washer Machine, [facility] 12/27/2020 8:38 AM * Neeta Patel [...] magnesium citrate as well. Voice recognition software [employer] Fluency Direct was used dictate and transcribe this document. Directional Driller variances may occur. Despite proofreading, typographical errors may occur. Neeta Patel MD * Jaylin Reynolds, PHYSICIST ASTROPHYSICS - 12/26/2020 11:20 AM CDT Progress Note [...] tablet 5 mg 5 mg oral Q12H [facility] Neeta Patel MD 5 mg at 12/26/20957 ??? bisacodyL (DULCOLAX) suppository 10 mg 10 mg rectal Nightly Neeta Patel MD 10 mg at 12/25/202002 ??? bromfenac 0.07 % drops 1 drop 1 drop ophthalmic BID Neeta Patel MD 1 drop at ??? canagliflozin (INVOKANA) tablet 100 mg 100 mg oral Before breakfast Neeta Patel MD 100mg at 12/26/20 0610 ??? cholecalciferol (VITAMIN D-3) tablet 1,000 Units 1,000 Units oral Daily Neeta Patel MD1,000 Units at 12/26/20 0957 ??? cyanocobalamin (Vitamin B-12) tablet 250 mcg 250 mcg oral Daily Neeta Patel MD 250 mcgat 12/26/2058 ??? dextrose gel in packet 15 g [...] Daily Neeta Patel MD 40 mg at 12/26/2058 ??? glucagon injection 1 mg 1 mg [...] Neeta Patel MD 30 mL at 12/26/20 0957 ??? multivit wabfreib-wzlg-ZP-calcium (THERA-M) tablet 1 tablet 1 tablet oral [...] than three times a week ??? Attends Muslim Services: Never ??? Active Member of Clubs [...] perspective. Follow-up with PCP. Jaylin Reynolds NP [facility] [phone] * Melody Joseph [employer] - 12/26/2020 9:20 AM CDT Physical Therapy [...] Larsen MD - 12/26/2020 8:33 AM CDT [facility] Hospitalist Service Progress Note Patient Name: Loc Anderson Patient : 1940 Age/Sex: 80 y.o. female Room/Bed: [place] [id number] Admission Date/Time: 12/20/2020 3:09 PM Date: 12/26/2020 [...] Rate: 77 bpm RR Interval: 771 msec DE Interval: 192 msec QRS Duration: 112 msec QT Interval: 415 msec QTC Interval: 447 msec P-R-T [place]: 46 - -28 - 55 degrees SINUS RHYTHM BORDERLINE LEFT AXIS DEVIATION [QRS AXIS < -20] MODERATE INTRAVENTRICULAR CONDUCTION DELAY [110+ ms QRS DURATION] BORDERLINE ECG No change from prior EKG Electronically Signed By: Landon Valencia MD ECG 12 lead Result Date: 12/21/2020 Narrative: Vent Rate: 81 bpm RR Interval: 736 msec DE Interval: 162 msec QRS Duration: 119 msec QT Interval: 326 msec QTC Interval: 363 msec P-R-T [place]: -11 - -39 - 35 degrees Probable [...] Rate: 83 bpm RR Interval: 719 msec DE Interval: 206 msec QRS Duration: 134 msec QT Interval: 405 msec QTC Interval: 445 msec P-R-T [place]: 72 - -54 - 59 degrees SINUS [...] Keyshawn Cummings M.D. LEIGH: LEIGH Report ID: [id number] Reading Location: [id number] XR Abdomen Ap 1 Vw Result Date: [...] Keyshawn Cummings M.D. LEIGH: LEIGH Report ID: [id number] Reading Location: [id number] CT Abdomen Pelvis W Contrast Result Date: 12/20/2020 Narrative: EXAM DESCRIPTION: CT ABDOMEN PELVIS W CONTRAST REASON FOR STUDY: asthma, PNA, CAD, CHF, A-fib, HTN, HLD, and DM who presents to the ED via EMS and accompanied by her daughter c/o generalized weakness for approximately 3 days PSH cade hernia ike 100 ml optiray 85779 g r FA Duration: 3 days TECHNIQUE: [...] Deborah Garcia M.D. TS: SHANNON Report ID: [id number] Reading Location: [id number] CT Abdomen Pelvis W Contrast Result Date: [...] Femi Fermin M.D. AR: SPARKLE Report ID: [id number] Reading Location: [id number] XR Chest 1 Vw Portable Result Date: [...] HARDWARE/LINES/TUBES: None. BONES: No acute findings. OTHER: [place] are seen of the leftlower chest similar to prior. IMPRESSION: 1. No acute findings or infiltrate. THIS IS AN ELECTRONICALLY VERIFIED FINAL REPORT 12/20/2020 4:42 PM - Electronically signed by Noah Cuba M.D. MJ: RENETTA Report ID: [id number] Reading Location:[id number] US Carotids Duplex Bilateral Result Date: 12/25/2020 [...] Hilario Bolanos M.D. AG: SORAIDA Report ID: [id number] Reading Location: [id number] CT Chest PE (CTA) W Contrast Result [...] Vivek Stout M.D. BB: DEDRA Report ID: [id number] Reading Location: [id number] Microbiology: COVID-19 RNA negative. H pylori negative. [...] recommendations from GI. Would like patient to pruitt ve good bowel movement prior to discharge. Urinary [...] MD Director of Family Medicine Inpatient Services Washer Machine, [facility] 12/26/2020 8:33 AM * Neeta Patel [...] and follow her response Voice recognition software [employer] Fluency Direct was used dictate and transcribe this document. Directional Driller variances may occur. Despite proofreading, typographical errors [...] tongue midline, mucosa moist Lungs CTA Heart: [id number], no significant murmur or gallop Abd: +BS, [...] Rate: 77 bpm RR Interval: 771 msec DE Interval: 192 msec QRS Duration: 112 msec QT Interval: 415 msec QTC Interval: 447 msec P-R-T [place]: 46 - -28 - 55 degrees SINUS RHYTHM BORDERLINE LEFT AXIS DEVIATION [QRS AXIS < -20] MODERATE INTRAVENTRICULAR CONDUCTION DELAY [110+ ms QRS DURATION] BORDERLINE ECG No change from prior EKG Electronically Signed By: Landon Valencia MD ECG 12 lead Result Date: 12/21/2020 Narrative: Vent Rate: 81 bpm RR Interval: 736 msec DE Interval: 162 msec QRS Duration: 119 msec QT Interval: 326 msec QTC Interval: 363 msec P-R-T [place]: -11 - -39 - 35 degrees Probable [...] Rate: 83 bpm RR Interval: 719 msec DE Interval: 206 msec QRS Duration: 134 msec QT Interval: 405 msec QTC Interval: 445 msec P-R-T [place]: 72 - -54 - 59 degrees SINUS [...] PSH cade hernia ike 100 ml optiray 49671 g r FA Duration: 3 days TECHNIQUE: [...] Deborah Garcia M.D. TS: TS Report ID: [id number] Location: [id number] CT Abdomen Pelvis W Contrast Result Date: [...] Femi Fermin M.D. AR: SPARKLE Report ID: [id number] Reading Location: [id number] XR Chest 1 Vw Portable Result Date: [...] Noah Cuba M.D. MJ: RENETTA Report ID: [id number] Reading Location:[id number] CT Chest PE (CTA) W Contrast Result [...] Vivek Stout M.D. BB: DEDRA Report ID: [id number] Reading Location: [place] [address] Current Facility-Administered Medications Medication Dose Route Frequency [...] 72 mcg at 12/25/20 0634 ??? multivit jwymkine-jokn-AT-calcium (THERA-M) tablet 1 tablet 1 tablet oral [...] Nightly Neeta Patel MD 120 mg at 12/24/202156 A/P: [...] No resolved hospital problems. Voice recognition software [employer] Direct was used dictate and transcribe this document. Directional Driller variances may occur. Despite proofreading, typographical errors [...] Services Yes Type of Home Care Services adoption social worker;Home therapies;Nurse visit Home care service name and phone number [facility] Patient expects to be discharged to: Private residence Does the patient need discharge transport arranged? No * Ian Martínez RPh - 12/25/2020 10:03 AM CDT Vancomycin discontinued 12/25/20 10:[address]De Hauser. Vanco levels have been discontinued. Pharmacy monitoring is complete. Thank you, Ian Martínez RPh [facility] Pharmacy department [phone] * Melody Joseph PTA - 12/25/2020 9:25 [...] with 24 hour supervision * Dianna Goldstein [facility] - 12/25/2020 8:15 AM CDT Vancomycin order [...] monitor daily. Thank you, Dianna Goldstein RPh [facility] Pharmacy department [phone] * Wayne Snow MD - 12/24/2020 1:18 [...] tongue midline, mucosa moist Lungs CTA Heart: [id number], no significant murmur or gallop Abd: +BS, [...] Rate: 77 bpm RR Interval: 771 msec DE Interval: 192 msec QRS Duration: 112 msec QT Interval: 415 msec QTC Interval: 447 msec P-R-T [place]: 46 - -28 - 55 degrees SINUS RHYTHM BORDERLINE LEFT AXIS DEVIATION [QRS AXIS < -20] MODERATE INTRAVENTRICULAR CONDUCTION DELAY [110+ ms QRS DURATION] BORDERLINE ECG No change from prior EKG Electronically Signed By: Landon Valencia MD ECG 12 lead Result Date: 12/21/2020 Narrative: Vent Rate: 81 bpm RR Interval: 736 msec DE Interval: 162 msec QRS Duration: 119 msec QT Interval: 326 msec QTC Interval: 363 msec P-R-T [place]: -11 - -39 - 35 degrees Probable [...] Rate: 83 bpm RR Interval: 719 msec DE Interval: 206 msec QRS Duration: 134 msec QT Interval: 405 msec QTC Interval: 445 msec P-R-T [place]: 72 - -54 - 59 degrees SINUS [...] PSH cade hernia ike 100 ml optiray 87541 g r FA Duration: 3 days TECHNIQUE: [...] Deborah Garcia M.D. TS: SHANNON Report ID: [id number] Reading Location: [id number] CT Abdomen Pelvis W Contrast Result Date: [...] Femi Fermin M.D. AR: SPARKLE Report ID: [id number] Reading Location: [id number] XR Chest 1 Vw Portable Result Date: [...] HARDWARE/LINES/TUBES: None. BONES: No acute findings. OTHER: [place] are seen of the left lower chest similar to prior. IMPRESSION: 1. No acute findings or infiltrate. THIS IS AN ELECTRONICALLY VERIFIED FINAL REPORT 12/20/2020 4:42 PM - Electronically signed by Noah Cuba M.D. MJ: RENETTA Report ID: [id number] Reading Location: [place] [address] CT Chest PE (CTA) W Contrast Result [...] Vivek Stout M.D. BB: DEDRA Report ID: [id number] Reading Location: [place] [address] Current Facility-Administered Medications Medication Dose Route Frequency [...] tablet 5 mg 5 mg oral Q12H [facility] Neeta Patel MD 5 mg at [...] breakfast Neeta Patel MD 100 mg at 12/24/20 0940 ??? cefepime (MAXIPIME) 1,000 mg in sodium chloride 0.9% 100 mL IVPB 1,000 mg intravenous Q12H [facility] Neeta Patel MD 200 mL/hr at [...] oral Once Wayne Snow MD ??? multivit wochuvnv-ibke-OW-calcium (THERA-M) tablet 1 tablet 1 tablet oral [...] (premix) 1,250 mg 15 mg/kg intravenous Q24H [facility] Wayne Snow MD 1,250 mg at 12/24/20 0930 ??? [...] No resolved hospital problems. Voice recognition software [employer] [place] Direct was used dictate and transcribe this document. Directional Driller variances may occur. Despite proofreading, typographical errors may occur. Wayne Snow MD 12/24/2020 1:18 PM * Ian Martínez [facility] - 12/24/2020 8:11 AM CDT Loc Anderson [...] PLATELETS K/cumm 273 Thank you, Ian Martínez [facility] Pharmacy department [phone] * Wayne Snow MD - 12/23/2020 2:26 [...] tongue midline, mucosa moist Lungs CTA Heart: [id number], no significant murmur or gallop Abd: +BS, [...] Rate: 77 bpm RR Interval: 771 msec DE Interval: 192 msec QRS Duration: 112 msec QT Interval: 415 msec QTC Interval: 447 msec P-R-T [place]: 46 - -28 - 55 degrees SINUS RHYTHM BORDERLINE LEFT AXIS DEVIATION [QRS AXIS < -20] MODERATE INTRAVENTRICULAR CONDUCTION DELAY [110+ ms QRS DURATION] BORDERLINE ECG No change from prior EKG Electronically Signed By: Landon Valencia MD ECG 12 lead Result Date: 12/21/2020 Narrative: Vent Rate: 81 bpm RR Interval: 736 msec DE Interval: 162 msec QRS Duration: 119 msec QT Interval: 326 msec QTC Interval: 363 msec P-R-T [place]: -11 - -39 - 35 degrees Probable [...] Rate: 83 bpm RR Interval: 719 msec DE Interval: 206 msec QRS Duration: 134 msec QT Interval: 405 msec QTC Interval: 445 msec P-R-T [place]: 72 - -54 - 59 degrees SINUS [...] PSH cade hernia ike 100 ml optiray 33832 g r FA Duration: 3 days TECHNIQUE: [...] Deborah Garcia M.D. TS: SHANNON Report ID: [id number] Reading Location: [id number] CT Abdomen Pelvis W Contrast Result Date: [...] Femi Fermin M.D. AR: SPARKLE Report ID: [id number] ReadingLocation: [id number] XR Chest 1 Vw Portable Result Date: [...] Noah Cuba M.D. MJ: RENETTA Report ID: [id number] Reading Location:[id number] CT Chest PE (CTA) W Contrast Result [...] Vivek Stout M.D. BB: DEDRA Report ID: [id number] Reading Location: [id number] Current Facility-Administered Medications Medication Dose Route Frequency Provider Last Rate Last Admin acetaminophen (TYLENOL) tablet 500 mg 500 mg oral Q4H PRN Neeta Patel MD 500 mg at 12/21/20 1028 amitriptyline (ELAVIL) tablet 50 mg 50 mg oral Nightly eNeta Patel MD 50 mg at 12/22/202112 anastrozole [...] Neeta Patel MD 1 drop at 12/23/20 0907 flecainide [...] Patel MD 72 mcg at12/23/20 0900 multivit hfdjqrlt-jyhm-MO-calcium (THERA-M) tablet 1 tablet 1 tablet oral [...] Neeta Patel MD 25 mg at 12/23/20 0901 verapamil SR (CALAN SR) extended release tablet [...] No resolved hospital problems. Voice recognition software [employer] [place] Direct was used dictate and transcribe this document. Directional Driller variances may occur. Despite proofreading, typographical errors [...] 72 mcg at 12/22/20 1258 ??? multivit xxvpsvgu-igey-LS-calcium (THERA-M) tablet 1 tablet 1 tablet oral [...] -- -- 0.68 -- 0.67 -- 0.84 OGK-XGO-VTNLAGM mL/min/1.73 m2 -- -- 81 -- 82 [...] Atrial fibrillation 1st diagnosed in 2016 in [place]. Now back on [facility]. OAC temporarily stopped because of large gluteal [...] (from Physical Therapy) Active Problems Problem[place] [facility] [place] Date: 12/22/20 Goal Start Date Expected End Date End Date PT [facility] 1 12/22/20 12/29/20 -- Goal Details: Supine to/from sit with min assist Goal Start Date Expected End Date End Date PT [facility] 2 12/22/20 12/29/20 -- Goal Details: Sit to/from stand with cg assist Goal Start Date Expected End Date End Date PT [facility] 3 12/22/20 12/29/20 -- Goal Details: Bed to/from chair with cg assist Goal Start Date Expected End Date End Date PT [facility] 4 12/22/20 12/29/20 -- Goal Details: Ambulate 40' with wheeled walker with cg assist Goal Start Date Expected End Date End Date PT [facility] 5 12/22/20 12/29/20 -- Goal Details: HEP [...] tongue midline, mucosa moist Lungs CTA Heart: [id number], no significant murmur or gallop Abd: +BS, [...] Rate: 77 bpm RR Interval: 771 msec DE Interval: 192 msec QRS Duration: 112 msec QT Interval: 415 msec QTC Interval: 447 msec P-R-T [place]: 46 - -28 - 55 degrees SINUS RHYTHM BORDERLINE LEFT AXIS DEVIATION [QRS AXIS < -20] MODERATE INTRAVENTRICULAR CONDUCTION DELAY [110+ ms QRS DURATION] BORDERLINE ECG No change from prior EKG Electronically Signed By: Landon Valencia MD ECG 12 lead Result Date: 12/21/2020 Narrative: Vent Rate: 81 bpm RR Interval: 736 msec DE Interval: 162 msec QRS Duration: 119 msec QT Interval: 326 msec QTC Interval: 363 msec P-R-T [place]: -11 - -39 - 35 degrees Probable [...] Rate: 83 bpm RR Interval: 719 msec DE Interval: 206 msec QRS Duration: 134 msec QT Interval: 405 msec QTC Interval: 445 msec P-R-T [place]: 72 - -54 - 59 degrees SINUS [...] PSH cade hernia ike 100 ml optiray 78099 g r FA Duration: 3 days TECHNIQUE: [...] Deborah Garcia M.D. TS: SHANNON Report ID: [id number] Location: [id number] CT Abdomen Pelvis W Contrast Result Date: [...] Femi Fermin M.D. AR: SPARKLE Report ID: [id number] Reading Location: [id number] XR Chest 1 Vw Portable Result Date: [...] HARDWARE/LINES/TUBES: None. BONES: No acute findings. OTHER: [place] are seen of the leftlower chest similar to prior. IMPRESSION: 1. No acute findings or infiltrate. THIS IS AN ELECTRONICALLY VERIFIED FINAL REPORT 12/20/2020 4:42 PM - Electronically signed by Noah Cuba M.D. MJ: RENETTA Report ID: [id number] Reading Location:[place] [address] CT Chest PE (CTA) W Contrast Result [...] Vivek Stout M.D. BB: DEDRA Report ID: [id number] Reading Location: [place] [address] Current Facility-Administered Medications Medication Dose Route Frequency [...] tablet 5 mg 5 mg oral Q12H [facility] Neeta Patel MD ??? [Held by [...] 72 mcg at 12/22/20 1258 ??? multivit uvbvydmb-oloo-VP-calcium (THERA-M) tablet 1 tablet 1 tablet oral [...] No resolved hospital problems. Voice recognition software How[employer] Fluency Direct was used dictate and transcribe this document. Directional Driller variances may occur. 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 [...] Range Crossmatch Compatible Unit number for crossmatch [id number] Prepare RBC: 1 Units Collection Time: 12/20/20 6:23 PM Result Value Ref Range Units requested 1 Units requested Ready Unit Number [id number] Product code R0247L22 Blood Expiration Date 479952257090 Product Blood Type (for scanning) 5100 Product [...] AM Result Value Ref Range Unit Number [id number] Product code P1528H75 Blood Expiration Date 239879221309 Product Blood Type (for scanning) 5100 Product Blood Type OPOS Dispense Status DISPENSED POCT glucose Collection Time: 12/21/20 2:34 AM Result Value Ref Range Glucose, POC 143 (H) 71 - 98 mg/dL Prepare plasma Collection Time: 12/21/20 6:42 AM Result Value Ref Range Unit Number [id number] Product code C2494U81 Blood Expiration Date 520600686532 Product Blood Type (for scanning) 5100 Product [...] Rate: 77 bpm RR Interval: 771 msec DE Interval: 192 msec QRS Duration: 112 msec QT Interval: 415 msec QTC Interval: 447 msec P-R-T [place]: 46 - -28 - 55 degrees SINUS RHYTHM BORDERLINE LEFT AXIS DEVIATION [QRS AXIS < -20] MODERATE INTRAVENTRICULAR CONDUCTION DELAY [110+ ms QRS DURATION] BORDERLINE ECG No change from prior EKG Electronically Signed By: Landon Valencia MD ECG 12 lead Result Date: 12/21/2020 Narrative: Vent Rate: 81 bpm RR Interval: 736 msec DE Interval: 162 msec QRS Duration: 119 msec QT Interval: 326 msec QTC Interval: 363 msec P-R-T [place]: -11 - -39 - 35 degrees Probable [...] Rate: 83 bpm RR Interval: 719 msec DE Interval: 206 msec QRS Duration: 134 msec QT Interval: 405 msec QTC Interval: 445 msec P-R-T [place]: 72 - -54 - 59 degrees SINUS [...] PSH cade hernia ike 100 ml optiray 21846 g r FA Duration: 3 days TECHNIQUE: [...] Deborah Garcia M.D. TS: SHANNON Report ID: [id number] Reading Location: [id number] CT Abdomen Pelvis W Contrast Result Date: [...] Electronically signed by Femi Fermin M.D. AR: SPRAKLE Report ID: [id number] Reading Location: [id number] XR Chest 1 Vw Portable Result Date: [...] Noah Cuba M.D. MJ: RENETTA Report ID: [id number] Reading Location:[id number] CT Chest PE (CTA) W Contrast Result Date: 11/27/2020 Narrative: EXAM DESCRIPTION: CT CHEST PE (CTA) W CONTRAST REASON FOR STUDY: Chest tightness started 11/26 in the evening. Pt recently had a PE in October that pt states they went in and had to remove. Hx of left breast cancer with lumpectomy. 100ml of Optiray 350, 20g iv lt forearmDuration: 11/26 TECHNIQUE: CT angiogram of the chest performed with intravenous contrast using helical scanning techniquewith dynamic intravenous contrast injection. Reconstructed coronal and sagittal MPR images reviewed. All images stored on PACS. 3D MIP images rendered on scanning unit and reviewed at time of interpretation. Automated exposure control was used as a dose optimization technique for this examination. CONTRAST TYPE/DOSE: 100 of optiray 350 injected via lt forearm COMPARISON: None FINDINGS: VASCULATURE: No identified pulmonary emboli. LUNGS: No nodules or masses. No pneumonia. PLEURA: No effusion. No pneumothorax. MEDIASTINUM/MICHA: Calcified right paratracheal and right hilar [...] Vivek Stout M.D. BB: DEDRA Report ID: [id number] Reading Location: [id number] Current Facility-Administered Medications Medication Dose Route Frequency [...] 100 mL IVPB 1,000 mg intravenous Q12H Wayne Angel MD ??? cyanocobalamin (Vitamin B-12) tablet 250 [...] tablet 25 mg 25 mg oral Daily aWyne Snow MD ??? verapamil SR (CALAN SR) [...] length of stay to be >2 mid [facility] High Principal Problem: Normocytic anemia Active Problems: Hypokalemia Urinary tract bacterial infections Paroxysmal atrial fibrillation (CMS/HCC) (HCC) History of pulmonary embolism Type 2 diabetes mellitus (HCC) Chronic diastolic (congestive) heart failure (HCC) Anxiety CAD (coronary artery disease) HTN (hypertension) Resolved Problems: No resolved hospital problems. Voice recognition software [employer] [place] Direct was used dictate and transcribe this document. Directional Driller variances may occur. Despite proofreading, typographical errors may occur. Wayne Snow MD Date of Service: 12/21/2020 documented in this encounter Procedure Notes * Neeta Patel MD - 12/27/2020 3:31 PM CDTAssociated Order(s): FLEXIBLE SIGMOIDOSCOPY [facility] Patient Name: Loc Anderson Procedure Date: 12/27/2020 3:31 PM Date of : 1940 Admit Type: Inpatient Age: 80 Gender: Female Attending MD: Neeta Patel M.D. Room: [facility] ENDOSCOPY ROOM 1 Note Status: Finalized Patient [...] informed consent was obtained. The Endoscope GIF-H190 [id number] was introduced through the anus and advanced [...] 3:31 PM Procedure Code(s): --- Professional --- 56842, Sigmoidoscopy, flexible; diagnostic, including collection of specimen(s) by brushing or washing, when performed (separate procedure) Diagnosis Code(s): --- Professional --- R19.5, Other fecal abnormalities K59.00, Constipation, unspecified K56.41, Fecal impaction CPT copyright 2019 [employer]. All rights reserved. The codes documented in this report are preliminary and upon performance solutions specialist review may be revised to meet current compliance requirements. Recognized by the [employer] for promoting quality in endoscopy * Neeta Patel MD - 12/22/2020 11:16 AM CDTAssociated Order(s): EGD [facility] Patient Name: Loc Anderson Procedure Date: 12/22/2020 11:16 AM Date of : 1940 Admit Type: Inpatient Age: 80 Gender: Female Attending MD: Neeta Patel M.D. Room: [facility] ENDOSCOPY ROOM 1 Note Status: Finalized Patient Profile: This is an 80 year old female. Patient admitted with urine tract infection and the significant new onset anemia. Stool occult blood testing positive. Colonoscopy 2019 was unremarkable. Procedure: Upper GI endoscopy Indications: Iron deficiency anemia, Occult blood in stool Referring MD: Destiney Camargo MD Providers: Ahzofia Patel M.D. Impression: - Normal examined duodenum. [...] passed under direct vision. The Endoscope GIF-H190 [id number] was introduced through the mouth, and advanced [...] 11:16 AM Procedure Code(s): --- Professional --- 22452, Esophagogastroduodenoscopy, flexible, transoral; with biopsy, single or multiple Diagnosis Code(s): --- Professional --- K31.89, Other diseases of stomach and duodenum K31.7, Polyp of stomach and duodenum K22.8, Other specified diseases of esophagus D50.9, Iron deficiency anemia, unspecified R19.5, Other fecal abnormalities CPT copyright 2019 [employer]. All rights reserved. The codes documented in this report are preliminary and upon performance solutions specialist review may be revised to meet current compliance requirements. Recognized by the [employer] for promoting quality [...] Gatherings with Friends and Family: ??? Attends Muslim Services: ??? Active Member of Clubs or [...] Nightly, Neeta Patel MD, 50 mg at 12/24/208 ??? amoxicillin (AMOXIL) tablet/capsule 500 mg, 500 mg, oral, TID, Willie Aly MD ??? anastrozole (ARIMIDEX) tablet 1 mg, 1 mg, oral, Daily, Neeta Patel MD, 1 mg at 12/25/2032 ??? apixaban (ELIQUIS) tablet 5 mg, 5 mg, oral, Q12H [facility], Neeta Patel MD, 5 mg at ??? bisacodyL (DULCOLAX) suppository 10 mg, 10 mg, rectal, Daily PRN, Wayne Snow MD ??? bromfenac 0.07 % drops 1 drop, 1 drop, ophthalmic, BID, Neeta Patel MD, 1 drop at 12/25/2039 ??? canagliflozin (INVOKANA) tablet 100 mg, 100 mg, oral, Before breakfast, Neeta Patel MD, 100 mg at 12/25/2034 ??? cefepime (MAXIPIME) 1,000 mg in sodium chloride 0.9% 100 mL IVPB, 1,000 mg, intravenous, Q12H [facility], Neeta Patel MD, Last Rate: 200 [...] QAM, Neeta Patel MD, 8 Units at 12/25/20932 ??? insulin lispro (HumaLOG, ADMELOG) 100 unit/mL [...] 72 mcg, oral, Before breakfast, Neeta Patel MD, 72 mcg at 12/25/20 0634 ??? multivit nvzbdcfi-szxj-UF-calcium (THERA-M) tablet 1 tablet, 1 tablet, oral, Daily, KarNeeta mederos MD, 1 tablet at 12/25/20931 ??? oxyCODONE (ROXICODONE) tablet 5 mg, 5 mg, oral, Q4H PRN, Neeta Patel MD, 5 mg at 12/24/202199 ??? pantoprazole DR (PROTONIX) extended release tablet [...] Thanks for this consultation. Willie Aly MD [facility] [phone] Record created with voice recognition software. Occasional wrong-word or 'njolc-y-iqfl' substitutions may have occurred due to the [...] Patient was having dizzy spells upon standing. Mamiemainor wynn's home health nurse was at the [...] work-up. Patient had hospitalization in September at [facility] for large saddle PE. Patient underwent suction [...] BILATERAL SALPINGOOPHORECTOMY 1981 Hysterectomy, total abdominal, BSO Allergies Allergen Reactions [...] -- 79 19 97 % -- -- 12/20/202046 113/57 -- -- 85 16 94 % [...] -- 77 19 94 % -- -- 12/20/208 119/45 36.7 ??C (98.1 ??F) -- 78 [...] Gatherings with Friends and Family: ??? Attends Muslim Services: ??? Active Member of Clubs or [...] mcg tablet Take 25 mcg by mouth family services worker before breakfast 12/21/20 Desiree Walker MD metOLazone [...] CREATININE mg/dL -- -- 0.67 -- 0.84 [id number]-[id number] mL/min/1.73 m2 -- -- 82 -- 65 [...] 0010 TROPONINT <0.01 10/01/2017 1428 TROPONINT <0.01 09/30/2017 2024 TROPONINT <0.01 02/12/2016 0337 TROPONINT <0.01 02/11/2016 2114 Results for orders placed or performed during the hospital encounter of 04/07/18 ECG 12 lead Result Value Ref Range Patient age 77 years Interpretation Text SINUS RHYTHMBORDERLINE LEFT AXIS DEVIATIONMODERATE INTRAVENTRICULAR CONDUCTION DELAYBORDERLINE ECGPREVIOUS TRACIN05/22/2013 15.20No significant changes noted Ventricular Rate EKG/Min 77 /min P Wave Duration 147 ms QRS-Interval (MSEC) 126 ms DE-Interval (MSEC) 197 ms QT Interval 427 ms QTc 456 ms QTC Interval ms P [place] 70 deg QRS [place] -25 deg T [place] 44 deg Radiology Testing: CT Angio Chest [...] CHANGES NOTED NUCLEAR IMAGES PENDING 30 Day Quality Control Checker: 03/22/2016 IMPRESSION: THUS, THIS IS A BENIGN [...] Atrial fibrillation 1st diagnosed in 2015 in [place]. Now back on [facility]. OAC temporarily stopped because of large gluteal [...] MD Schprechman, Jared, MD * Loreta Randhawa, PHYSICIST ASTROPHYSICS - 12/21/2020 3:18 PM CDTAssociated Order(s): IP [...] mcg tablet Take 50 mcg by mouth family services worker before breakfast Unknown at Unknown time ??? [...] tablet 5 mg 5 mg oral Q12H [facility] Wayne Snow MD 5 mg at 12/21/20 1409 [...] 100 mL IVPB 1,000 mg intravenous Q12H [facility] Wayne Snow MD ??? cholecalciferol (VITAMIN [...] Before breakfast Julio Mccabe MD ??? multivit ybmyfrzw-inml-UO-calcium (THERA-M) tablet 1 tablet 1 tablet oral [...] Gatherings with Friends and Family: ??? Attends Muslim Services: ??? Active Member of Clubs or [...] and EGD. Loreta Randhawa, PAULINA Medical Oncology [facility] There may be grammatical errors in this note due to use of voice recognition software. Cosigned by Jann Pak MD at 12/21/2020 4:11 PM CDT * Neeta Patel MD - 12/21/2020 12:47 PM CDT Gastroenterology Consult Reason for consult: probable occult gi bleeding, decubiti, recent massive PE at [facility], in September large buttock bleed, Date [...] for a long time. He have seen chemical manager at [facility] before. She did have colonoscopy in 2019 and the report was reviewed. Two small mucosal polyps were removed. CT of the pelvis yesterday in the ER showed diffuse constipation. Patient has issues with irregular bowel movement for a long time and the as noted above she manages with her chemical manager at [facility]. There is no history of weight loss [...] mcg tablet Take 50 mcg by mouth family services worker before breakfast Unknown at Unknown time ??? [...] Range Crossmatch Compatible Unit number for crossmatch [id number] Prepare RBC: 1 Units Collection Time: 12/20/20 6:23 PM Result Value Ref Range Units requested 1 Units requested Ready Unit Number [id number] Product code R1766A91 Blood Expiration Date 904092069706 Product Blood Type (for scanning) 5100 Product [...] AM Result Value Ref Range Unit Number [id number] Product code Z6550Z40 Blood Expiration Date 307506436640 Product Blood Type (for scanning) 5100 Product Blood Type OPOS Dispense Status DISPENSED POCT glucose Collection Time: 12/21/20 2:34 AM Result Value Ref Range Glucose, POC 143 (H) 71 - 98 mg/dL Prepare plasma Collection Time: 12/21/20 6:42 AM Result Value Ref Range Unit Number [id number] Product code Y5228L11 Blood Expiration Date 551735902277 Product Blood Type (for scanning) 5100 Product [...] agreewith the current plan Voice recognition software [employer] [place] Direct was used dictate and transcribe this document. Directional Driller variances may occur. Despite proofreading, typographical errors may occur. Neeta Patel MD documented in this encounter Nursing Notes * Teagan Gailcia RN - 12/28/2020 10:11 AM CDT Trio [...] o2 sat is 94% room air. Alert and oriented times 4. States she does not know what is going on with her.nows the day and where she is and president. 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 States same thing happened last [...] tendency for uric acid stone formation. Source: [place] thereNow.Last revised 05-29-2017 CBC WITH AUTO DIFFERENTIAL - [...] CROSSMATCH Crossmatch Compatible Unit number for crossmatch [id number] TROPONIN T HIGH-SENSITIVITY 6-HOUR GUAIAC OCCULT BLOOD, FECAL, NON-NEOPLASM VITAMIN B12 SEPSIS LACTATE WITH REFLEX CBC WITH AUTO DIFFERENTIAL PREPARE RBC Units requested 1 Units requested Ready Unit Number [id number] Product code H4227F26 Blood Expiration Date Product Blood Type (for [...] (168 lb) SpO2 97% BMI 27.96 kg/m?? MDM ED Course as of Dec 20 2309 [...] my words and actions. Julio Mccabe MD 12/20/20 931 Julio Mccabe MD 12/20/20 7240 * Darby Kaplan, DES - 12/20/2020 3:03 PM CDT Pt brought [...] mobility * Plan of Care - Bonny Boone, DES - 12/28/2020 1:46 AM CDT Goals: Clinical [...] is being transported via wheelchair back to [facility] * Plan of Care - Bonny Boone [...] patient's status. * Plan of Care - Bonny Boone RN - 12/26/2020 5:11 AM CDT [...] CDT Pt wearing home cpap unit at [facility] * Plan of Care - Aida [...] Infection and the urinarycatheter, (see the approved [facility] guidelines below). A cause and effect relationship [...] > 100,000 cfu/ml with voided specimen or [place] count > 50,000 cfu/ml with catheterized specimen [...] record. Sincerely, Aleta Carr RN, CDS Clinical Logistics Technician [phone] * Plan of Care - Trina Benitez RN - 12/25/2020 10:16 AM CDT [facility] referral placed in [facility] for RN/PT [...] patient. * Plan of Care - Alondra Felder RN - 12/24/2020 2:53 PM CDT Goals: [...] * Plan of Care - Karey Bashir, PT - 12/23/2020 10:18 AM CDT Problem: PT [...] Progressing * Plan of Care - Bob Weber, OT - 12/22/2020 4:03 PM CDT Problem: [...] of Transportation: Health Insurance Coverage: Medicare A/B, [employer] Prescription Coverage: yes Pharmacy: [facility] in [place] Primary Care Provider: Destiney Camargo MD Prior to Admission: Primary Caregiver: Spouse Support System: Spouse/Significant Other, Children, Family members, Friends/neighbors Home Care Services: Yes Type of Home Care Services: adoption social worker, Private Duty, Nurse visit Home care service name and phone number: [facility] Durable Medical Equipment: Walker (wheeled), Wheelchair, CPAP/Bi-PAP, Cane (3 prong), Wheelchair Ramp Living Arrangements: Spouse/significant other Type of Residence: Private residence Steps in home? : No steps inside or outside (12/21/20 105) Potential discharge needs include: Dialysis: Behavioral Health Services: Behavioral Health Services: No (12/21/20 105) Patient expects to be Discharged to: Private residence, (12/21/20 105) Additional Information: Discharge plan discussed with patient and her . Goal is to return home with - he will take her home. is her primary caregiver. She does have a cane, x w/w, 2 w/c and a commode. She also had a cpap from [facility]. Healthcare comes out for [facility] RN. She hasa friend that come [...] the medical record. Julio Mccabe MD 12/20/20 4865 * ED Procedure Note - Julio Mccabe [...] EKG on 11/26/2020. Julio Mccabe MD 12/20/20 2317 documented in this encounter Plan of Treatment [...] GLUCOSE DEVICE Routine 12/27/2020 5:08 PM CDT FLEXIBLE SIGMOIDOSCOPY 3:31 PM CDT POCT GLUCOSE [...] 4:43 AM CDT THYROID FUNCTION CASCADE Routine 4:43 AM CDT CBC WITHOUT DIFFERENTIAL Routine 4:43 AM CDT T4, FREE Routine 12/24/2020 [...] 9:08 PM CDT CBC WITHOUT DIFFERENTIAL Routine 021 6:11 PM CDT POCT GLUCOSE DEVICE Routine [...] AUTO DIFFERENTIAL Timed 12/20 11:23 PM CDT DE CRITICAL CARE ILL/INJURED PATIENT INIT 30-74 MIN [...] S Edited Result - Final [facility] ([place]) [facility] [employer] [place] [address] * Transfuse RBC: 1 Units (12/28/2020 7:29 PM CDT) Blood specimen (specimen) Julio Mccabe MD BLOOD TRANSFUSION ORDERABLE S Edited Result - Final * (ABNORMAL) POCT glucose (12/28/2020 11:56 AM CDT) [facility] Signature Glucose, POC 189(H) 71 - 98 mg/dL [facility] ([place]) Blood specimen (specimen) 12/28/2020 11:56 AM CDT 12/28/2020 11:56 AM CDT Nina Larsen MD LAB POCT ORDERABLES - DEV ICE Final Result [facility] ([place] [employer] [place] [address] * (ABNORMAL) POCT glucose (12/28/2020 8:50 AM CDT) Glucose, POC 149(H) 71 - 98 mg/dL [facility] ([place]) Blood specimen (specimen) 12/28/2020 8:50 AM CDT 12/28/2020 8:50 AM CDT us Nina Larsen MD LAB POCT ORDERABLES - DEV ICE Final Result MADDI LUIS EDUARDO ([place]) 1 [facility] [place] [address] * eGFR (12/28/2020 4:36 AM CDT) eGFR [...] 4:36 AM CDT 12/28/2020 5:07 AM CDT us Neeta Patel MD LAB BLOOD ORDERABLES Final Result MADDI HOFF ([place]) 1 [facility] [place] [address] * (ABNORMAL) Basic metabolic panel (12/28/2020 4:36 [...] 112 70 - 199 mg/dL [facility] ([place]) Comment: Interpretive Data Fasting glucose >/= 126 [...] ORDERABLES Final Result [facility] ([place]) 1 [facility] [place] [address] * (ABNORMAL) CBC without differential (12/28/2020 4:36 AM CDT) [facility] WBC 8.3 3.8 - 9.9 K/cumm CERNER [...] 0.00 0.00 - 0.01 K/cumm [facility] ([place]) Blood specimen (specimen) 12/28/2020 4:36 AM CDT 12/28/2020 5:07 AM CDT us Neeta Patel MD LAB BLOOD ORDERABLES Final Result MADDI HOFF ([place]) 1 [facility] [place] [address] * (ABNORMAL) POCT glucose (12/28/2020 2:58 AM CDT) [facility] Glucose, POC 158(H) 71 - 98 mg/dL [facility] ([place]) Blood specimen (specimen) 12/28/2020 2:58 AM CDT 12/28/2020 2:58 AM CDT Nina Larsen MD LAB POCT ORDERABLES - DEV ICE Final Result MADDI HOFF ([place]) 1 [facility] [place] [address] * (ABNORMAL) POCT glucose (12/27/2020 9:58 PM CDT) Glucose, POC 214(H) 71 - 98 mg/dL MADDI HOFF ([place]) Blood specimen (specimen) 12/27/2020 9:58 PM CDT 12/27/2020 9:58 PM CDT Nina Larsen MD LAB POCT ORDERABLES - DEV ICE Final Result Performing Organization Address [facility] Co de Phone Number MADDI HOFF ([place]) 1 [facility] [place] [address] * (ABNORMAL) POCT glucose (12/27/2020 5:08 PM CDT) Glucose, POC 115(H) 71 - 98 mg/dL [facility] LUIS ED[facility]ARD[facility] ([place]) Blood specimen (specimen) 12/27/2020 5:08 PM CDT 12/27/2020 5:08 PM CDT Nina Larsen MD LAB POCT ORDERABLES - DEV ICE Final Result Performing Organization Address [facility]/ZIP Co de Phone Number MADDI HOFF ([place]) 1 [place] [address] * FLEXIBLE SIGMOIDOSCOPY (12/27/2020 3:31 PM CDT) Anatomical Region Laterality Modality Other Narrative Procedure Note Neeta Patel MD - 12/27/2020 3:31 PM CDT [facility] Patient Name: Loc Anderson Procedure Date: 12/27/2020 3:31 PM Date of : 1940 Admit Type: Inpatient Age: 80 Gender: Female Attending MD: Neeta Patel M.D. Room: [facility] ENDOSCOPY ROOM 1 Note Status: Finalized Patient [...] and informed consentwas obtained. The Endoscope [id number] was introduced through the anus and advanced [...] 3:31 PM Procedure Code(s): --- Professional --- 60875, Sigmoidoscopy, flexible; diagnostic, including collection of specimen(s) by brushing or washing, when performed (separateprocedure) Diagnosis Code(s): --- Professional --- R19.5, Other fecal abnormalities K59.00, Constipation, unspecified K56.41, Fecal impaction CPT copyright 2019 [employer]. All rights reserved. The codes documented in this report are preliminary and upon performance solutions specialist reviewmay be revised to meet current compliance requirements. Recognized by the [employer] for promoting quality in endoscopy Neeta Patel MD ENDOSCOPY PROCEDURES Final Result * (ABNORMAL) POCT glucose (12/27/2020 3:27 PM CDT) Glucose, POC 114(H) 71 - 98 mg/dL [facility] ([place]) Blood specimen (specimen) 12/27/2020 3:27 PM CDT 12/27/2020 3:27 PM CDT Nina Larsen MD LAB POCT ORDERABLES - DEV ICE Final Result Performing Organization Address [facility]/ZIP Co de Phone Number MADDI HOFF ([place]) 1 [facility] [place] [place] [address] * (ABNORMAL) POCT glucose (12/27/2020 12:00 PM CDT) Glucose, POC 136(H) 71 - 98 mg/dL [facility] ([place]) Blood specimen (specimen) 12/27/2020 12:00 PM CDT 12/27/2020 12:00 PM CDT Nina Larsen MD LAB POCT ORDERABLES - DEV ICE Final Result MADDI HOFF ([place]) 1 [facility] [place] [address] * (ABNORMAL) POCT glucose (12/27/2020 7:29 AM CDT) Glucose, POC 131(H) 71 - 98 mg/dL [facility] ([place]) Blood specimen (specimen) 12/27/2020 7:29 AM CDT 12/27/2020 7:29 AM CDT us Nina Larsen MD LAB POCT ORDERABLES - DEV ICE Final Result Performing Organization Address [facility]/ZIP Co de Phone Number MADDI HOFF ([place]) 1 [facility] [employer] [place] [address] * eGFR (12/27/2020 5:28 AM CDT) eGFR 78 mL/min/1.7 3 m2 MADDI HOFF ([place]) Comment: Interpretive Data Reference Interval Normal ?>/= [...] 5:28 AM CDT 12/27/2020 5:48 AM CDT us Nina Larsen MD LAB BLOOD ORDERABLES Bárbara l Result MADDI HOFF ([place]) 1 [facility] [employer] [place] [address] * (ABNORMAL) Magnesium (12/27/2020 5:28 AM CDT) Magnesium 3.7(H) 1.4 - 2.5 mg/dL [facility] ([place]) Blood specimen (specimen) 12/27/2020 5:28 AM CDT 12/27/2020 5:48 AM CDT us Nina Larsen MD LAB BLOOD ORDERABLES Bárbara mcdaniel Result [facility] ([place]) 1 [facility] [place] [address] * Basic metabolic panel (12/27/2020 5:28 AM CDT) Sodium 135 135 - 145 mmol/L [facility] ([place]) Potassium, pl 4.5 3.3 - 4.9 mmol/L [facility] ([place]) Chloride 103 97 - 110 mmol/L [facility] ([place]) CO2 25 22 - 32 mmol/L [facility] ([place]) Anion gap 7 2 - 15 mmol/L [facility] ([place]) BUN 19 8 - 25 mg/dL [facility] ([place]) Creatinine 0.72 0.60 - 1.10 mg/dL [facility] ([place]) Glucose 148 70 - 199 mg/dL [facility] ([place]) [...] 5:28 AM CDT 12/27/2020 5:48 AM CDT us Nina Larsen MD LAB BLOOD ORDERABLES Bárbara mcdaniel Result [facility] ([place]) 1 [facility] Department [place] [address] * (ABNORMAL) CBC without differential (12/27/2020 5:28 [...] 5:28 AM CDT 12/27/2020 5:48 AM CDT us Nina Larsen MD LAB BLOOD ORDERABLES Bárbara l Result [facility] ([place]) 1 [facility] [place] [address] * (ABNORMAL) POCT glucose (12/27/2020 2:49 AM CDT) Glucose, POC 136(H) 71 - 98 mg/dL MADDI HOFF ([place]) Blood specimen (specimen) 12/27/2020 2:49 AM CDT 12/27/2020 2:49 AM CDT Nina Larsen MD LAB POCT ORDERABLES - DEV ICE Final Result MADDI HOFF ([place]) 1 [facility] [place] [address] * (ABNORMAL) POCT glucose (12/26/2020 9:08 PM CDT) Glucose, POC 136(H) 71 - 98 mg/dL MADDI [facility] ([place]) Blood specimen (specimen) 12/26/2020 9:08 PM CDT 12/26/2020 9:08 PM CDT Nina Larsen MD LAB POCT ORDERABLES - DEV ICE Final Result MADDI HOFF ([place]) 1 [facility] [place] [address] * (ABNORMAL) POCT glucose (12/26/2020 5:10 PM CDT) Glucose, POC 162(H) 71 - 98 mg/dL MADDI HOFF ([place]) Blood specimen (specimen) 12/26/2020 5:10 PM CDT 12/26/2020 5:10 PM CDT Nina Larsen MD LAB POCT ORDERABLES - DEV ICE Final Result MADDI HOFF ([place]) 1 [facility] [place] [address] * (ABNORMAL) POCT glucose (12/26/2020 11:57 AM CDT) Pathologist [facility] Glucose, POC 142(H) 71 - 98 mg/dL [facility] ([place]) Blood specimen (specimen) 12/26/2020 11:57 AM CDT 12/26/2020 11:57 AM CDT Nina Larsen MD LAB POCT ORDERABLES - DEV ICE Final Result Performing Organization Address [facility]/ZIP Co de Phone Number [facility] ([place]) 1 [facility] [place] [address] * (ABNORMAL) POCT glucose (12/26/2020 8:15 AM CDT) [facility] Glucose, POC 145(H) 71 - 98 mg/dL [facility]) Blood specimen (specimen) 12/26/2020 8:15 AM CDT 12/26/2020 8:15 AM CDT Nina Larsen MD LAB POCT ORDERABLES - DEV ICE Final Result Performing Organization Address [facility] de Phone Number MADDI [facility] ([place]) 1 [place] [address] * eGFR (12/26/2020 4:35 AM CDT) Pathologist [facility] eGFR 82 mL/min/1.7 3 m2 [facility] ([place]) Comment: Interpretive Data Reference Interval Normal ?>/= [...] Snow MD LAB BLOOD ORDERABLES Final Result [facility]IE[facility]IRSTIN [facility] ([place]) 1 [facility] [place] [address] * (ABNORMAL) CBC without differential (12/26/2020 4:35 AM CDT) WBC 9.8 3.8 - 9.9 K/cumm [facility] ([place]) Hgb 9.1(L) 11.9 - 15.5 g/dL [facility] ([place]) Hct 31.8(L) 35.6 - 45.5 % [facility] ([place]) Plt 263 150 - 400 K/cumm [facility] ([place]) MPV 9.9 9.1 - 12.3 fL [facility] ([place]) RBC 3.98 3.90 - 5.20 M/cumm [facility] ([place]) MCV 79.9(L) 81.3 - 96.4 fL [facility] ([place]) MCH 22.9(L) 27.1 - 33.3 pg [facility] ([place]) MCHC 28.6(L) 32.3 - 35.7 g/dL [facility] ([place]) RDW CV 20.4(H) 11.1 - 14.9 % [facility] ([place]) RDW SD 56.9(H) 35.7 - 48.1 fL [facility] ([place]) NRBC abs 0.02(H) 0.00 - 0.01 K/cumm [facility] ([place]) Blood specimen (specimen) 12/26/2020 4:35 AM CDT 12/26/2020 5:01 AM CDT us Wayne Snow MD LAB BLOOD ORDERABLES Final Result [facility] ([place]) 1 [facility] Department [place] [address] * Basic metabolic panel (12/26/2020 4:35 AM [...] ([place]) Glucose 135 70 - 199 mg/dL [facility] ([place]) Comment: Interpretive Data Fasting glucose [...] mg/dL [facility] ([place]) Blood specimen (specimen) 12/26/2020 4:35 AM CDT 12/26/2020 5:01 AM CDT us Wayne Snow MD LAB BLOOD ORDERABLES Final Result MADDI [place]) 1 [facility] [place] [address] * (ABNORMAL) POCT glucose (12/26/2020 3:26 AM CDT) Glucose, POC 176(H) 71 - 98 mg/dL MADDI HOFF ([place]) Blood specimen (specimen) 12/26/2020 3:26 AM CDT 12/26/2020 3:26 AM CDT us Wayne Snow MD LAB POCT ORDERABLES - DEVIC E Final Result Performing Organization Address [facility] Co de Phone Number MADDI HOFF ([place]) 1 [facility] [place] [address] * (ABNORMAL) POCT glucose (12/25/2020 9:14 PM CDT) Glucose, POC 185(H) 71 - 98 mg/dL MADDI HOFF ([place]) Blood specimen (specimen) 12/25/2020 9:14 PM CDT 12/25/2020 9:14 PM CDT us Wayne Snow MD LAB POCT ORDERABLES - DEVIC E Final Result Performing Organization Address [facility] Co de Phone Number MADDI HOFF ([place]) 1 [facility] [place] [address] * (ABNORMAL) POCT glucose (12/25/2020 5:14 PM CDT) Glucose, POC 144(H) 71 - 98 mg/dL MADDI HOFF ([place]) Blood specimen (specimen) 12/25/2020 5:14 PM CDT 12/25/2020 5:14 PM CDT us Wayne Snow MD LAB POCT ORDERABLES - DEVIC E Final Result MADDI HOFF ([place]) 1 [facility] [place] [address] * XR Abdomen Ap 1 Vw (12/25/2020 [...] signed by Keyshawn ABRAHAM: LEIGH D: ??12/25/2020 4:31 PM T: ??12/25/2020 4:31 PM Report ID: [id number] Reading Location: ??[id number] Procedure Note Ian Cummings MD - 12/25/2020 [...] signed by Keyshawn ABRAHAM: LEIGH Report ID: [id number] Reading Location: [id number] us Wayne Snow MD IMG XR PROCEDURES [...] PM T: ??12/25/2020 4:30 PM Report ID: [id number] Reading Location: ??[id number] Procedure Note Ian Cummings MD - 12/25/2020 [...] Keyshawn Cummings M.D. LEIGH: LEIGH Report ID: [id number] Reading Location: [place] [address] Wayne Snow MD IMG XR PROCEDURES Final Res ult * (ABNORMAL) POCT glucose (12/25/2020 12:12 PM CDT) Glucose, POC 175(H) 71 - 98 mg/dL MADDI HOFF ([place]) Blood specimen (specimen) 12/25/2020 12:12 PM CDT 12/25/2020 12:12 PM CDT Wayne Snow MD LAB POCT ORDERABLES - DEVIC E Final Result MADDI HOFF ([place]) 1 [facility] [place] [address] * US Carotids Duplex Bilateral (12/25/2020 9:20 [...] AM T: ??12/25/2020 9:30 AM Report ID: [id number] Reading Location: ??[id number] Procedure Note Hilario Bolanos MD - 12/25/2020 [...] Electronically signed by Hilario Bolanos M.D. AG: AG Report ID: [id number] Reading Location: [id number] us Wayne Snow MD IMG US PROCEDURES Final Res ult * (ABNORMAL) POCT glucose (12/25/2020 8:10 AM CDT) Glucose, POC 117(H) 71 - 98 mg/dL [facility] ([place]) Blood specimen (specimen) 12/25/2020 8:10 AM CDT 12/25/2020 8:10 AM CDT us Wayne Snow MD LAB POCT ORDERABLES - DEVIC E Final Result [facility] ([place]) 1 [facility] [place] [address] * (ABNORMAL) CBC without differential (12/25/2020 5:46 AM CDT) WBC 9.6 3.8 - 9.9 K/cumm [facility] ([place]) Hgb 8.9(L) 11.9 - 15.5 g/dL [facility] ([place]) Hct 32.0(L) 35.6 - 45.5 % [facility] ([place]) Plt 264 150 - 400 K/cumm [facility] ([place]) MPV 10.1 9.1 - 12.3 fL [facility] ([place]) RBC 3.94 3.90 - 5.20 M/cumm [facility] ([place]) MCV 81.2(L) 81.3 - 96.4 fL [facility] ([place]) MCH 22.6(L) 27.1 - 33.3 pg [facility] ([place]) MCHC 27.8(L) 32.3 - 35.7 g/dL [facility] ([place]) RDW CV 20.4(H) 11.1 - 14.9 % [facility] ([place]) RDW SD 57.1(H) 35.7 - 48.1 fL [facility] ([place]) NRBC abs 0.02(H) 0.00 - 0.01 K/cumm MADDI HOFF ([place]) Blood specimen (specimen) 12/25/2020 5:46 AM CDT 12/25/2020 5:52 AM CDT Wayne Snow MD LAB BLOOD ORDERABLES Final Result Performing Organization Address [facility]/ZIP Co de Phone Number MADDI HOFF ([place]) 1 [facility] [place] [address] * (ABNORMAL) POCT glucose (12/25/2020 3:05 AM CDT) Glucose, POC 121(H) 71 - 98 mg/dL MADDI HOFF ([place]) Blood specimen (specimen) 12/25/2020 3:05 AM CDT 12/25/2020 3:05 AM CDT Wayne Snow MD LAB POCT ORDERABLES - DEVIC E Final Result Performing Organization Address [facility] Co de Phone Number MADDI HOFF ([place]) 1 [facility] [place] [address] * (ABNORMAL) POCT glucose (12/24/2020 8:56 PM CDT) Glucose, POC 160(H) 71 - 98 mg/dL MADDI [facility] ([place]) Blood specimen (specimen) 12/24/2020 8:56 PM CDT 12/24/2020 8:56 PM CDT Wayne Snow MD LAB POCT ORDERABLES - DEVIC E Final Result Performing Organization Address [facility] Co de Phone Number [place]DI [place]) 1 [facility] [place] [address] * (ABNORMAL) POCT glucose (12/24/2020 4:36 PM CDT) Glucose, POC 142(H) 71 - 98 mg/dL MADDI HOFF ([place]) Blood specimen (specimen) 12/24/2020 4:36 PM CDT 12/24/2020 4:36 PM CDT us Wayne Snow MD LAB POCT ORDERABLES - DEVIC E Final Result Performing Organization Address [facility]/ZIP Co de Phone Number MADDI HOFF ([place]) 1 [facility] [place] [address] * (ABNORMAL) POCT glucose (12/24/2020 12:22 PM CDT) Glucose, POC 160(H) 71 - 98 mg/dL MADDI [facility] ([place]) Blood specimen (specimen) 12/24/2020 12:22 PM CDT 12/24/2020 12:22 PM CDT us Wayne Snow MD LAB POCT ORDERABLES - DEVIC E Final Result Performing Organization Address [facility] Co de Phone Number MADDI HOFF ([place]) 1 [facility] [place] [address] * (ABNORMAL) POCT glucose (12/24/2020 8:00 AM CDT) Glucose, POC 124(H) 71 - 98 mg/dL [facility] ([place]) Blood specimen (specimen) 12/24/2020 8:00 AM CDT 12/24/2020 8:00 AM CDT us Wayne Snow MD LAB POCT ORDERABLES - DEVIC E Final Result Performing Organization Address [facility]/ZIP Co de Phone Number MADDI HOFF ([place]) 1 [facility] [place] [address] * (ABNORMAL) POCT glucose (12/24/2020 7:34 AM CDT) Glucose, POC 137(H) 71 - 98 mg/dL [facility] ([place]) Blood specimen (specimen) 12/24/2020 7:34 AM CDT 12/24/2020 7:34 AM CDT us Wayne Snow MD LAB POCT ORDERABLES - DEVIC E Final Result MADDI HOFF ([place]) 1 [facility] [place] [address] * T4, free (12/24/2020 4:43 AM CDT) Free T4 1.30 0.90 - 1.70 ng/dL MADDI HOFF ([place]) Blood specimen (specimen) 12/24/2020 4:43 AM CDT 12/24/2020 8:05 AM CDT Narrative MADDI HOFF ([place]) - 12/24/2020 9:05 AM CDT This test was reflexed from a TSH result. us Wayne Snow MD LAB BLOOD ORDERABLES Final Result Performing Organization Address [facility] Co de Phone Number MADDI HOFF ([place]) 1 [facility] [place] [address] * (ABNORMAL) TSH reflex to free T4 (12/24/2020 4:43 AM CDT) TSH 5.72(H) 0.30 - 4.20 mcIUnit/mL MADDI HOFF ([place]) Blood specimen (specimen) 12/24/2020 4:43 AM CDT 12/24/2020 8:05 AM CDT us Wayne Snow MD LAB BLOOD ORDERABLES Final Result MADDI HOFF ([place]) 1 [facility] [place] [address] * eGFR (12/24/2020 4:43 AM CDT) eGFR 84 mL/min/1.7 3 m2 [facility] ([place]) Comment: Interpretive Data Reference Interval [...] ORDERABLES Final Result [facility]DI [facility] ([place]) 1 [facility] [place] [address] * (ABNORMAL) Basic metabolic panel (12/24/2020 4:43 AM CDT) Pathologist [facility] Sodium 138 135 - 145 mmol/L [facility] ([place]) Potassium, pl 4.4 3.3 - 4.9 mmol/L [facility] ([place]) Chloride 111(H) 97 - 110 mmol/L [facility] ([place]) CO2 21(L) 22 - 32 mmol/L [facility] ([place]) Anion gap 7 2 - 15 mmol/L [facility] ([place]) BUN 13 8 - 25 mg/dL [facility] ([place]) Creatinine 0.62 0.60 - 1.10 mg/dL [facility] ([place]) Glucose 121 70 - 199 mg/dL [facility] ([place]) Comment: Interpretive Data Fasting [...] 2017. Calcium 8.9 8.5 - 10.3 mg/dL [facility] ([place]) Blood specimen (specimen) 12/24/2020 4:43 AM CDT 12/24/2020 5:22 AM CDT Wayne Snow MD LAB BLOOD ORDERABLES Final Result MADDI HOFF ([place]) 1 [facility] [employer] [place] [address] * Phosphorus (12/24/2020 4:43 AM CDT) Phosphorus, pl 2.4 2.3 - 4.5 mg/dL [facility] ([place]) Blood specimen (specimen) 12/24/2020 4:43 AM CDT 12/24/2020 5:22 AM CDT Wayne Snow MD LAB BLOOD ORDERABLES Final Result MADDI HOFF ([place]) 1 [facility] [place] [address] * (ABNORMAL) CBC without differential (12/24/2020 4:43 AM CDT) WBC 8.7 3.8 - 9.9 K/cumm [facility] ([place]) Hgb 8.6(L) 11.9 - 15.5 g/dL [facility] ([place]) Hct 30.5(L) 35.6 - 45.5 % [facility] ([place]) Plt 273 150 - 400 K/cumm [facility] ([place]) MPV 10.5 9.1 - 12.3 fL [facility] ([place]) RBC 3.78(L) 3.90 - 5.20 M/cumm [facility] ([place]) MCV 80.7(L) 81.3 - 96.4 fL [facility] ([place]) MCH 22.8(L) 27.1 - 33.3 pg [facility] ([place]) MCHC 28.2(L) 32.3 - 35.7 g/dL [facility] ([place]) RDW CV 19.6(H) 11.1 - 14.9 % [facility] ([place]) RDW SD 55.0(H) 35.7 - 48.1 fL [facility] ([place]) NRBC abs 0.02(H) 0.00 - 0.01 K/cumm [facility] ([place]) Blood specimen (specimen) 12/24/2020 4:43 AM CDT 12/24/2020 5:25 AM CDT Wayne Snow MD LAB BLOOD ORDERABLES Final Result [facility]DI [facility] ([place]) 1 [facility] [place] [address] * (ABNORMAL) POCT glucose (12/24/2020 2:19 AM CDT) Glucose, POC 143(H) 71 - 98 mg/dL [facility] ([place]) Blood specimen (specimen) 12/24/2020 2:19 AM CDT 12/24/2020 2:19 AM CDT us Wayne Schprechman MD LAB POCT ORDERABLES - DEVIC E Final Result [place] 1 [facility] [place] [address] * (ABNORMAL) POCT glucose (12/23/2020 9:08 PM CDT) Glucose, POC 140(H) 71 - 98 mg/dL MADDI HOFF ([place]) Blood specimen (specimen) 12/23/2020 9:08 PM CDT 12/23/2020 9:08 PM CDT us Wayne Snow MD LAB POCT ORDERABLES - DEVIC E Final Result [place]) 1 [facility] [place] [address] * (ABNORMAL) POCT glucose (12/23/2020 5:10 PM CDT) Glucose, POC 123(H) 71 - 98 mg/dL MADDI HOFF ([place]) Blood specimen (specimen) 12/23/2020 5:10 PM CDT 12/23/2020 5:10 PM CDT us Wayne Snow MD LAB POCT ORDERABLES - DEVIC E Final Result MADDI HOFF ([place]) 1 [facility] [place] [address] * (ABNORMAL) POCT glucose (12/23/2020 11:45 AM CDT) Glucose, POC 183(H) 71 - 98 mg/dL MADDI HOFF ([place]) Blood specimen (specimen) 12/23/2020 11:45 AM CDT 12/23/2020 11:45 AM CDT us Wayne Snow MD LAB POCT ORDERABLES - DEVIC E Final Result MADDI HOFF ([place]) 1 [facility] [place] [address] * (ABNORMAL) POCT glucose (12/23/2020 8:33 AM CDT) Glucose, POC 114(H) 71 - 98 mg/dL MADDI HOFF ([place]) Blood specimen (specimen) 12/23/2020 8:33 AM CDT 12/23/2020 8:33 AM CDT Wayne Snow MD LAB POCT ORDERABLES - DEVIC E Final Result MADDI HOFF ([place]) 1 [facility] [place] [address] * eGFR (12/23/2020 5:09 AM CDT) eGFR 86 mL/min/1.7 3 m2 MADDI HOFF ([place]) Comment: [...] ORDERABLES Final Result [facility] ([place]) 1 [facility] [place] [address] * (ABNORMAL) Differential, auto (12/23/2020 5:09 AM [...] Patel MD LAB BLOOD ORDERABLES Final Result [facility] ([place]) 1 [facility] [place] [address] * (ABNORMAL) Renal function panel (12/23/2020 5:09 AM CDT) Sodium 139 135 - 145 mmol/L [facility] ([place]) Potassium, pl 4.1 3.3 - 4.9 mmol/L [facility] ([place]) Chloride 107 97 - 110 mmol/L [facility] ([place]) CO2 21(L) 22 - 32 mmol/L [facility] ([place]) Anion gap 10 2 - 15 mmol/L [facility] ([place]) BUN 15 8 - 25 mg/dL [facility] ([place]) Creatinine 0.58(L) 0.60 - 1.10 mg/dL [facility] ([place]) Glucose 104 70 - 199 mg/dL [facility] ([place]) Comment: Interpretive Data Fasting glucose >/= [...] ORDERABLES Final Result [facility] ([facility]) 1 [facility] [place] [address] * (ABNORMAL) CBC with auto differential (12/23/2020 [...] RDW CV 18.7(H) 11.1 - 14.9 % [facility] ([place]) RDW SD 53.1(H) 35.7 - 48.1 fL [facility] ([place]) NRBC abs 0.04(H) 0.00 - 0.01 K/cumm [facility] ([place]) Blood specimen (specimen) 12/23/2020 5:09 AM CDT 12/23/2020 5:35 AM CDT us Neeta Patel MD LAB BLOOD ORDERABLES Final Result Performing Organization Address [facility]/ZIP Co de Phone Number [facility] ([place]) [address] [place] [address] * Folate (12/23/2020 5:09 AM CDT) Pathologist [facility] Folic acid >20.0 >=5.0 ng/mL [facility] ([place]) Comment: Hemolysis present. ??Results may be affected. Testing performed by: [facility], [address] [place] [address], [facility] Blood specimen (specimen) 12/23/2020 5:09 AM CDT 12/23/2020 5:58 PM CDT us Wayne Snow MD LAB BLOOD ORDERABLES Final Result Performing Organization Address [facility] de Phone Number [facility] ([place]) [address] [place] [address] * (ABNORMAL) POCT glucose (12/23/2020 2:00 AM CDT) Glucose, POC 128(H) 71 - 98 mg/dL [facility] ([place]) Blood specimen (specimen) 12/23/2020 2:00 AM CDT 12/23/2020 2:00 AM CDT Wayne Snow MD LAB POCT ORDERABLES - DEVIC E Final Result Performing Organization Address City/[facility]/ZIP Co de Phone Number [facility]DI [facility] ([place]) [address] [place] [address] * (ABNORMAL) POCT glucose (12/22/2020 8:50 PM CDT) Glucose, POC 165(H) 71 - 98 mg/dL MADDI [facility] ([place]) Blood specimen (specimen) 12/22/2020 8:50 PM CDT 12/22/2020 8:50 PM CDT Wayne Snow MD LAB POCT ORDERABLES - DEVIC E Final Result [facility] ([place]) [address] [place] [address] * (ABNORMAL) POCT glucose (12/22/2020 5:16 PM CDT) Glucose, POC 116(H) 71 - 98 mg/dL [facility] ([place]) Blood specimen (specimen) 12/22/2020 5:16 PM CDT 12/22/2020 5:16 PM CDT Wayne Snow MD LAB POCT ORDERABLES - DEVIC E Final Result MADDI [facility] ([place]) [address] [place] [address] * Surgical pathology (12/22/2020 1:17 PM CDT) Tissue (Polyp(s), colon/colorectal, esophageal, gastric) 12/22/2020 11:36 AM CDT Tissue (EG Junction, Biopsy) 12/22/2020 11:36 AM CDT Narrative PATHOLOGY [facility] ([place]) - 12/25/2020 2:15 PM CDT EPIC results best viewed via link to PDF [facility] Department of Pathology [address] [place] [address] Note to Patients: This report may contain [...] Final Report Patient Name: ??LOC ANDERSON Address: ??[address] [facility], ??[place], [place] ??[address] Gender: ??F : ??1940 (Age: 80) Service: ??Medical Location: ??[facility] Hospital #: ??[id number] Patient Type: ??[facility] Accession # ?[id number] Taken: ??12/22/2020 Received: ??12/22/2020 Accessioned: ??12/22/2020 Reported: [...] determined by the Surgical Pathology Department at [facility] as part of an ongoing quality assurance group leader program and in compliance with federally mandated [...] characteristics determined by the Surgical Pathology Department [facility]. ??It has not been cleared or approved by the U. S. Food and Drug Administration. Neeta Patel MD LAB PATHOLOGY ORDERABLES F inal Result Performing Organization Address [facility] Co de Phone Number PATHOLOGY [facility] ([place]) [address] [place] [address] * H. pylori urease screen (MAIA test) Tissue (12/22/2020 11:41 AM CDT) H. pylori, rapid (MAIA) Negative Negative [facility] ([place]) Tissue 12/22/2020 11:4 1 AM CDT 12/23/2020 8:20 AM CDT Neeta Patel MD LAB MICROBIOLOGY - GENERAL ORDERABLES Final Result Performing Organization Address [facility] de Phone Number [facility] ([place]) [address] [place] [address] Department [place] [address] * (ABNORMAL) POCT glucose (12/22/2020 11:18 AM CDT) Glucose, POC 109(H) 71 - 98 mg/dL [facility] ([place]) Blood specimen (specimen) 12/22/2020 11:18 AM CDT 12/22/2020 11:18 AM CDT Wayne Snow MD LAB POCT ORDERABLES - DEVIC E Final Result Performing Organization Address [facility] de Phone Number [facility] ([place]) [address] [place] [address] * EGD (12/22/2020 11:16 AM CDT) Anatomical Region Laterality Modality Other Narrative Procedure Note Neeta Patel MD - 12/22/2020 11:16 AM CDT [facility] Patient Name: Loc Anderson Procedure Date: 12/22/2020 11:16 AM Date of : 1940 Admit Type: Inpatient Age: 80 Gender: Female Attending MD: Neeta Patel M.D. Room: [facility] ENDOSCOPY ROOM 1 Note Status: Finalized Patient [...] passed under direct vision. The Endoscope [id number] was introduced through the mouth, and advanced [...] 11:16 AM Procedure Code(s): --- Professional --- 89723, Esophagogastroduodenoscopy, flexible, transoral; with biopsy, single or multiple Diagnosis Code(s): --- Professional --- K31.89, Other diseases of stomach and duodenum K31.7, Polyp of stomach and duodenum K22.8, Other specified diseases of esophagus D50.9, Iron deficiency anemia, unspecified R19.5, Other fecal abnormalities CPT copyright 2019 [employer]. All rights reserved. The codes documented in this report are preliminary and upon performance solutions specialist reviewmay be revised to meet current compliance requirements. Recognized by the [employer] for promoting quality in endoscopy Neeta Patel MD ENDOSCOPY PROCEDURES Final Result * POCT glucose (12/22/2020 8:24 AM CDT) Glucose, POC 96 71 - 98 mg/dL [facility] ([place]) Blood specimen (specimen) 12/22/2020 8:24 AM CDT 12/22/2020 8:24 AM CDT us Wayne Snow MD LAB POCT ORDERABLES - DEVIC E Final Result Performing Organization Address City/State/[facility] Co de Phone Number MADDI [facility] ([place]) 1 [facility] [place] [address] * eGFR (12/22/2020 4:23 AM CDT) eGFR 81 mL/min/1.7 3 m2 [facility] ([place]) Comment: Interpretive Data Reference Interval Normal ?>/= [...] AM CDT 12/22/2020 5:03 AM CDT us Julio Mccabe MD LAB BLOOD ORDERABLES Final Result MADDI [facility] ([place]) 1 [facility] [place] [address] * (ABNORMAL) Differential, auto (12/22/2020 4:23 AM [...] AM CDT 12/22/2020 5:03 AM CDT us Julio Mccabe MD LAB BLOOD ORDERABLES Final Result MADDI [facility] ([place]) 1 [facility] [place] [address] * (ABNORMAL) Renal function panel (12/22/2020 4:23 AM CDT) Sodium 139 135 - 145 mmol/L [facility] ([place]) Potassium, pl 4.0 3.3 - 4.9 mmol/L [facility] ([place]) Chloride 106 97 - 110 mmol/L [facility] ([place]) CO2 25 22 - 32 mmol/L [facility] ([place]) Anion gap 8 2 - 15 mmol/L [facility] ([place]) BUN 19 8 - 25 mg/dL [facility] ([place]) Creatinine 0.68 0.60 - 1.10 mg/dL [facility] ([place]) Glucose 97 70 - 199 mg/dL [facility] ([place]) Comment: Interpretive Data Fasting [...] 4:23 AM CDT 12/22/2020 5:03 AM CDT Neeta Patel MD LAB BLOOD ORDERABLES Final Result [facility] ([place]) 1 [facility] Department of Laboratories [place] [id number] * (ABNORMAL) CBC with auto differential (12/22/2020 [...] - 33.3 pg [facility] ([place]) MCHC 29.0(L) 32.3 - 35.7 g/dL [facility] ([place]) RDW CV 18.1(H) 11.1 - 14.9 % [facility] ([place]) RDW SD 51.8(H) 35.7 - 48.1 fL [facility] ([place]) NRBC abs 0.04(H) 0.00 - 0.01 K/cumm [facility] ([place]) Blood specimen (specimen) 12/22/2020 4:23 AM CDT 12/22/2020 5:03 AM CDT us Neeta Patel MD LAB BLOOD ORDERABLES Final Result [facility]DI [facility] ([place]) 1 [facility] [place] [address] * (ABNORMAL) Vitamin B12 (12/22/2020 4:23 AM CDT) Pathologist [facility] Vitamin B12 1,571(H) 230 - 1,250 pg/mL [facility] ([place]) Comment:Testing performed by : [facility], [address] [place] [address], [address] Blood specimen (specimen) 12/22/2020 4:23 AM CDT 12/22/2020 9:46 AM CDT us Wayne Snow MD LAB BLOOD ORDERABLES Final Result [facility]DI [facility] ([place]) 1 [facility] [employer] [place] [address] * (ABNORMAL) POCT glucose (12/22/2020 2:02 AM CDT) Glucose, POC 120(H) 71 - 98 mg/dL [facility] ([place]) Blood specimen (specimen) 12/22/2020 2:02 AM CDT 12/22/2020 2:02 AM CDT Wayne Snow MD LAB POCT ORDERABLES - DEVIC E Final Result [facility] ([place]) 1 [facility] [place] [address] * (ABNORMAL) POCT glucose (12/21/2020 9:08 PM CDT) Pathologist [facility] Glucose, POC 167(H) 71 - 98 mg/dL [facility] ([place]) Blood specimen (specimen) 12/21/2020 9:08 PM CDT 12/21/2020 9:08 PM CDT Wayne Snow MD LAB POCT ORDERABLES - DEVIC E Final Result [facility] ([place]) 1 [facility] [place] [address] * (ABNORMAL) CBC without differential (12/21/2020 6:11 PM CDT) [facility] WBC 11.5(H) 3.8 - 9.9 K/cumm [facility] ([place]) Hgb 8.9(L) 11.9 - 15.5 g/dL [facility] ([place]) Hct 29.7(L) 35.6 - 45.5 % [facility] ([place]) Plt 317 150 - 400 K/cumm [facility] ([place]) MPV 10.0 9.1 - 12.3 fL [facility] ([place]) RBC 3.76(L) 3.90 - 5.20 M/cumm [facility] ([place]) MCV 79.0(L) 81.3 - 96.4 fL [facility] ([place]) MCH 23.7(L) 27.1 - 33.3 pg [facility] ([place]) MCHC 30.0(L) 32.3 - 35.7 g/dL [facility] ([place]) RDW CV 17.8(H) 11.1 - 14.9 % [facility] ([place]) RDW SD 49.5(H) 35.7 - 48.1 fL [facility] ([place]) NRBC abs 0.06(H) 0.00 - 0.01 K/cumm [facility] ([place]) Blood specimen (specimen) 12/21/2020 6:11 PM CDT 12/21/2020 6:13 PM CDT us aWyne Snow MD LAB BLOOD ORDERABLES Final Result Performing Organization Address City/[facility]/ZIP Co de Phone Number [facility]DI [facility] ([place]) 1 [facility] [place] [address] * (ABNORMAL) POCT glucose (12/21/2020 5:33 PM CDT) Glucose, POC 152(H) 71 - 98 mg/dL [facility] ([place]) Blood specimen (specimen) 12/21/2020 5:33 PM CDT 12/21/2020 5:33 PM CDT Wayne Snow MD LAB POCT ORDERABLES - DEVIC E Final Result Performing Organization Address [facility] Co de Phone Number MADDI [facility]OFF ([place]) 1 [place] [address] * (ABNORMAL) POCT glucose (12/21/2020 12:33 PM CDT) Glucose, POC 121(H) 71 - 98 mg/dL MADDI [facility] ([place]) Blood specimen (specimen) 12/21/2020 12:33 PM CDT 12/21/2020 12:33 PM CDT us Wayne Snow MD LAB POCT ORDERABLES - DEVIC E Final Result Performing Organization Address City/[facility] Co de Phone Number M[facility]DI [facility] ([place]) 1 [facility] [place] [address] * (ABNORMAL) Differential, auto (12/21/2020 10:59 AM [...] ORDERABLES Final Result [facility] ([place]) 1 [facility] [employer] [place] [address] * (ABNORMAL) CBC with auto differential (12/21/2020 [...] ORDERABLES Final Result [facility] ([place]) 1 [facility] [place] [place] [address] * ECG 12 lead (12/21/2020 10:33 AM CDT) 12/21/2020 10:3 3 AM CDT Narrative [facility] - 12/21/2020 11:28 AM CDT Vent Rate: 77 bpm RR Interval: 771 msec DE Interval: 192 msec QRS Duration: 112 msec QT Interval: 415 msec QTC Interval: 447 msec P-R-T [place]: 46 - -28 - 55 degrees SINUS RHYTHM BORDERLINE LEFT AXIS DEVIATION [QRS AXIS < -20] MODERATE INTRAVENTRICULAR CONDUCTION DELAY [110+ ms QRS DURATION] BORDERLINE ECG No change from prior EKG Electronically Signed By: Landon Valencia MD Wayne Snow MD ECG ORDERABLES Final Resul t Performing Organization Address [facility] Co de Phone Number [facility] * (ABNORMAL) POCT glucose (12/21/2020 10:13 AM CDT) [facility] Glucose, POC 160(H) 71 - 98 mg/dL [facility]DI [facility] ([place]) Blood specimen (specimen) 12/21/2020 10:13 AM CDT 12/21/2020 10:13 AM CDT Wayne Snow MD LAB POCT ORDERABLES - DEVIC E Final Result Performing Organization Address [facility] Co de Phone Number [facility]DI [facility] ([place]) 1 [facility] [employer] [place] [address] * Transfuse plasma Standard plasma (12/21/2020 9:55 AM CDT) Blood specimen (specimen) Julio Mccabe MD BLOOD TRANSFUSION ORDERABLE S Final Result Performing Organization Address [facility] Co de Phone Number MADDI [facility] ([place]) 1 [facility] [employer] [place] [address] * Transfuse plasma: 2 Units Standard plasma (12/21/2020 9:55 AM CDT) Blood specimen (specimen) Julio Mccabe MD BLOOD TRANSFUSION ORDERABLE S Final Result * (ABNORMAL) Guaiac occult blood, fecal, non-neoplasm (12/21/2020 9:38 AM CDT) Guaiac occult blood, fecal Positive(A ) Negative [facility] ([place]) Stool 12/21/2020 9:38 AM CDT 12/21/2020 11:04 AM CDT Wayne Snow MD LAB BODY FLUIDS AND STOOLS ORDERABLES Final Result Performing Organization Address City/[facility]/ZIP Co de Phone Number MADDI [facility] ([place]) 1 [facility] [place] [address] * (ABNORMAL) POCT glucose (12/21/2020 8:44 AM CDT) [facility] Glucose, POC 109(H) 71 - 98 mg/dL MADDI [facility] ([place]) Blood specimen (specimen) 12/21/2020 8:44 AM CDT 12/21/2020 8:44 AM CDT Wayne Snow MD LAB POCT ORDERABLES - DEVIC E Final Result Performing Organization Address City/[facility]/ZIP Co de Phone Number MADDI [facility] ([place]) 1 [facility] [place] [address] * eGFR (12/21/2020 7:38 AM CDT) eGFR 82 mL/min/1.7 3 m2 [facility] ([place]) Comment: Interpretive Data Reference Interval Normal ?>/= [...] Snow MD LAB BLOOD ORDERABLES Final Result [facility] ([place]) 1 [facility] Department of Laboratories [place], [place] [id number] * (ABNORMAL) Basic metabolic panel (12/21/2020 7:38 AM CDT) Sodium 136 135 - 145 mmol/L [facility] ([place]) Potassium, pl 3.1(L) 3.3 - 4.9 mmol/L [facility] ([place]) Chloride 99 97 - 110 mmol/L [facility]) CO2 28 22 - 32 mmol/L [facility]) Anion gap 9 2 - 15 mmol/L [facility]) BUN 25 8 - 25 mg/dL [facility] ([place]) Creatinine 0.67 0.60 - 1.10 mg/dL [facility] ([place]) Glucose 110 70 - 199 mg/dL [facility] ([place]) Comment: Interpretive Data Fasting glucose [...] Final Re sult [facility] ([place]) 1 [facility] [place] [address] * (ABNORMAL) CBC without differential (12/21/2020 7:38 [...] RDW SD 49.2(H) 35.7 - 48.1 fL [facility] ([place]) NRBC abs 0.05(H) 0.00 - 0.01 K/cumm [facility] ([place]) Blood specimen (specimen) 12/21/2020 7:38 AM CDT 12/21/2020 7:40 AM CDT us Carli Pozo MD LAB BLOOD ORDERABLES Final Re sult [facility] ([place]) 1 [facility] [place] [address] * Transfuse plasma Standard plasma (12/21/2020 7:14 AM CDT) Blood specimen (specimen) Julio Mccabe MD BLOOD TRANSFUSION ORDERABLE S Final Result Performing Organization Address [facility]/ZIP Co de Phone Number [facility] ([place]) 1 [facility] [employer] [address] * Prepare plasma (12/21/2020 6:42 AM CDT) Unit Number [id number] [facility] ([place]) Product code [id number] [facility] ([place]) Blood Expiration Date [id number] [facility] ([place]) Product Blood Type (for scanning) 5100 [facility] ([place]) Product Blood Type OPOS [facility] ([place]) Dispense Status DISPENSED [facility] ([place]) Julio Mccabe MD BLOOD BANK PRODUCT ORDERABL ES Final Result [facility] ([place]) 1 [facility] [place] [address] * (ABNORMAL) POCT glucose (12/21/2020 2:34 AM CDT) Glucose, POC 143(H) 71 - 98 mg/dL [facility] ([place]) Blood specimen (specimen) 12/21/2020 2:34 AM CDT 12/21/2020 2:34 AM CDT Wayne Snow MD LAB POCT ORDERABLES - DEVIC E Final Result Performing Organization Address City/[facility]/ZIP Co de Phone Number [facility] ([place]) 1 [facility] [place] [employer] [address] * Prepare plasma (12/21/2020 1:58 AM CDT) Unit Number [id number] [facility] ([place]) Product code [id number] [facility] ([place]) Blood Expiration Date [id number] [facility] ([place]) Product Blood Type (for scanning) 5100 [facility] ([place]) Product Blood Type OPOS [facility] ([place]) Dispense Status DISPENSED [facility] ([place]) us Julio Mccabe MD BLOOD BANK PRODUCT ORDERABL ES Final Result Performing Organization Address [facility] de Phone Number [facility] ([place]) 1 [facility] [place] [address] * Prepare plasma: 2 Units Standard plasma (12/20/2020 11:36 PM CDT) Plasma # of units / Ready 2 [facility] ([place]) Plasma # of units / Ready Ready [facility] ([place]) Blood specimen (specimen) (Blood, Venous) 12/20/2020 11:36 PM CDT 12/20/2020 11:36 PM CDT Narrative [facility] ([place]) - 12/21/2020 6:44 AM CDT Is this plasma order intended for a COVID-19 patient as convalescent plasma?->Standard plasma Special Requirements Needed?->No Julio Mccabe MD BLOOD BANK PRODUCT ORDERABL ES Final Result Performing Organization Address City/[facility]/ZIP Co de Phone Number [facility] ([place]) 1 [facility] [place] [address] * (ABNORMAL) Differential, auto (12/20/2020 11:23 PM [...] 11:23 PM CDT 12/20/2020 11:25 PM CDT us Julio Mccabe MD LAB BLOOD ORDERABLES Final Result [facility] ([place]) 1 [facility] [place] [address] * (ABNORMAL) CBC with auto differential (12/20/2020 [...] 11:23 PM CDT 12/20/2020 11:25 PM CDT us Julio Mccabe MD LAB BLOOD ORDERABLES Final Result [facility] [place] 1 [facility] Department [place] [address] * DE CRITICAL CARE ILL/INJURED PATIENT INIT 30-74 MIN [...] ??PSH cade hernia ike 100 ml optiray [id number] g r FA Duration: 3 days TECHNIQUE: [...] PM T: ??12/20/2020 7:38 PM Report ID: [id number] Reading Location: ??[id number] Procedure Note Deborah Garcia MD - 12/20/2020 EXAM DESCRIPTION: CT ABDOMEN PELVIS W CONTRAST REASON FOR STUDY: asthma, PNA, CAD, CHF, A-fib, HTN, HLD, and DM who presents to the ED via EMS and accompanied by her daughter c/o generalized weakness for approximately 3 days PSH cade hernia ike 100 ml [id number] g r FA Duration: 3 days TECHNIQUE: [...] Deborah Garcia M.D. TS: TS Report ID: [id number] Reading Location: [place] [address] Julio Mccabe MD IMG CT PROCEDURES Final Res ult * ABO / Rh Confirmation Testing (12/20/2020 6:25 PM CDT) ABO/Rh Confirmation O Positive [facility] ([place]) Blood specimen (specimen) 12/20/2020 6:25 PM CDT 12/20/2020 6:25 PM CDT Julio Mccabe MD LAB BLOOD ORDERABLES Final Result Performing Organization Address [facility] Co de Phone Number [facility] ([place]) 1 [facility] [employer] [place] [address] * Prepare RBC: 1 Units (12/20/2020 6:23 PM CDT) Units requested 1 [facility] ([place]) Units requested Ready [facility] ([place]) Unit Number [id number] [facility] ([place]) Product code [id number] [facility] ([place]) Blood Expiration Date [id number] [facility] ([place]) Product Blood Type (for scanning) 5100 [facility] ([place]) Product Blood Type OPOS [facility] ([place]) Dispense Status DISPENSED [facility] ([place]) Blood specimen (specimen) 12/20/2020 6:23 PM CDT 12/20/2020 6:23 PM CDT Julio Mccabe MD BLOOD BANK PRODUCT ORDERABL ES Final Result Performing Organization Address City/[facility]/ZIP Co de Phone Number [facility] ([place]) 1 [facility] [employer] [place] [address] * Crossmatch (12/20/2020 6:20 PM CDT) Crossmatch Compatible MADDI GARCIAN) Unit number for crossmatch [id number] [facility] ([place]) Blood specimen (specimen) 12/20/2020 6:20 PM CDT 12/20/2020 6:23 PM CDT us Julio Mccabe MD LAB BLOOD BANK TEST ORDERAB LES Final Result [facility]DI GARCI[place]) 1 [facility] [place] [address] * COVID-19 Coronavirus RNA Nasopharyngeal (12/20/2020 5:57 PM CDT) COVID-19 RNA Negative Negative ANNA MARIEKIRSTIN HOFF RADHAN) Comment: Interpretive data: Synonyms for this test include: PCR and NAAT . ??This test is performed using the [employer] Xpert Xpress assay. This is a real-time [...] 22, 2020. First COVID-19 test? Unknown MADDI [place]) Employeed in healthcare? No [facility] ([place]) status? No CE RNCARSON G[place]DMAN) Group care resident? Yes [facility] ([place]) Hospitalized? Yes [facility] ([place]) Is patient in ICU? No C ERNCARSON GOLDMAN) Symptomatic as defined by CDC? No [facility] ([place]) Nasopharyngeal 12/20/2020 5: 57 PM CDT 12/20/2020 6:00 PM CDT Narrative [facility] ([place]) - 12/20/2020 6:54 PM CDT What is the reason for testing?->Screening prior to urgent surgery, procedure, BMT, immunosuppressive therapy Neeta Patel MD LAB MICROBIOLOGY - GENERAL ORDERABLES Final Result [facility] ([place]) 1 [facility] [place] [address] * (ABNORMAL) Vitamin B12 (12/20/2020 5:39 PM CDT) Vitamin B12 1,770(H) 230 - 1,250 pg/mL [facility] ([place]) Comment:Testing performed by : [facility], [address] [place] [address], [place]., [address] Blood specimen (specimen) 12/20/2020 5:39 PM CDT 12/21/2020 9:11 AM CDT us Wayne Snow MD LAB BLOOD ORDERABLES Final Result Performing Organization Address City/[facility]/ZIP Co de Phone Number [facility] ([place]) [address] [place] [address] [place] [address] * (ABNORMAL) Iron profile w/ IBC (12/20/2020 5:39 PM CDT) [facility] Iron 75 35 - 145 mcg/dL [facility] ([place]) TIBC 426(H) 250 - 400 mcg/dL [facility] ([place]) Transferrin saturation 18(L) 20 - 50 % [facility] ([place]) Blood specimen (specimen) 12/20/2020 5:39 PM CDT 12/20/2020 5:44 PM CDT Wayne Snow MD LAB BLOOD ORDERABLES Final Result [facility] ([place]) 1 [facility] [place] [address] * Ferritin (12/20/2020 5:39 PM CDT) Ferritin 48 15 - 150 ng/mL [facility] ([place]) Blood specimen (specimen) 12/20/2020 5:39 PM CDT 12/20/2020 5:44 PM CDT us Wayne Snow MD LAB BLOOD ORDERABLES Final Result Performing Organization Address [facility]/ZIP Co de Phone Number [facility] ([place]) 1 [facility] [place] [place] [address] * ABO / Rh Confirmation Testing (12/20/2020 4:35 PM CDT) ABO/Rh Confirmation O Positive [facility] ([place]) Blood specimen (specimen) 12/20/2020 4:35 PM CDT 12/20/2020 5:51 PM CDT us Julio Mccabe MD LAB BLOOD ORDERABLES Final Result Performing Organization Address [facility] Co de Phone Number [facility] ([place]) 1 [facility] [place] [address] * Antibody screen (12/20/2020 4:35 PM CDT) Devora, indirect, Gel Interpretation Negative ABSC [facility] ([place]) Blood specimen (specimen) 12/20/2020 4:35 PM CDT 12/20/2020 4:41 PM CDT Narrative [facility] ([place]) - 12/20/2020 5:47 PM CDT Has the patient had Daratumumab or Isatuximab in the past 6 months?->Unknown Julio Mccabe MD LAB BLOOD BANK TEST ORDERAB LES Final Result Performing Organization Address [facility]/ZIP Co de Phone Number [facility] ([place]) 1 [facility] [employer] [place] [id number] * ABO/Rh (12/20/2020 4:35 PM CDT) ABO/Rh O Positive C[facility]ER AM [facility] ([place]) Blood specimen (specimen) 12/20/2020 4:35 PM CDT 12/20/2020 4:41 PM CDT Narrative MADDI HOFF ([place]) - 12/20/2020 5:47 PM CDT Has the patient had Daratumumab or Isatuximab in the past 6 months?->Unknown Julio Mccabe MD LAB BLOOD BANK TEST ORDERAB LES Final Result Performing Organization Address [facility]/ZIP Co de Phone Number MADDI HOFF ([place]) 1 [facility] [place] [address] * (ABNORMAL) Reticulocyte Count (12/20/2020 4:35 PM CDT) Retics, absolute 0.208(H) 0.020 - 0.087 M/cumm [facility] ([place]) Retics 6.0(H) 0.4 - 2.9 % ANNA MARIENER [facility] ([place]) Reticulocyte Hgb 18.2(L) 30.5 - 38.0 pg MADDI LUIS EDUARDO ([place]A) Blood specimen (specimen) 12/20/2020 4:35 PM CDT 12/20/2020 4:41 PM CDT us Julio Mccabe MD LAB BLOOD ORDERABLES Final Result Performing Organization Address [facility] Co de Phone Number MADDI HOFF ([place]) 1 [facility] [place] [employer] [address] * Sepsis Lactate w/ Reflex (12/20/2020 4:35 PM CDT) Sepsis Lactate 1.2 0.7 - 2.0 mmol/L MADDI HOFF ([place]) Blood specimen (specimen) 12/20/2020 4:35 PM CDT 12/20/2020 4:41 PM CDT Julio Mccabe MD LAB BLOOD ORDERABLES Final Result MADDI HOFF ([place]) 1 [facility] [place] [address] * (ABNORMAL) Urine culture Urine, bladder (12/20/2020 4:27 PM CDT) Report Final Report: Greater than or equal to 100,000 colonies/mL of Pseudomonas aeruginosa Greater than or equal to 100,000 colonies/mL of Enterococcus faecalis Greater than or equal to 100,000 colonies/mL of Enterococcus faecalis #2 (.) MADDI HOFF ([place]A) Comment:Testing performed by : [facility], [address] [place] [address] Organism PSEUDOMONAS AERUGINOSA MADDI HOFF ([place]) Organism ENTEROCOCCUS FAECALIS MADDI HOFF ([place]) Organism ENTEROCOCCUS FAECALIS MADDI HOFF ([place]) Urine, bladder 12/20/2020 4: 27 PM CDT 12/20/2020 8:19 PM CDT Narrative MADDI HOFF ([place]) - 12/24/2020 3:18 PM CDT Urine culture reflexed based upon urinalysis results. Testing performed by [facility] ([phone]) Organism Antibiotic Method Susceptibility Pseudomonas aeruginosa Aztreonam [...] ORDERABLES Final Result MADDI HOFF ([place]) 1 [facility] [place] [address] * (ABNORMAL) Urinalysis, microscopic only (12/20/2020 4:27 [...] Mccabe MD LAB URINE ORDERABLES Final Result [facility] ([place]A) 1 [facility] [place] [address] * (ABNORMAL) Urinalysis reflex to microscopic and culture Urine, bladder (12/20/2020 4:27 PM CDT) Color, ur Yellow Yellow CERNER [...] <2.0 mg/dL [facility]ER [facility] ([place]) Nitrite, ur Positive(A) Negative CERNER [...] tendency for uric acid stone formation. Source: [place] there[facility]. Last revised 05-29-2017 us Julio Mccabe MD LAB MICROBIOLOGY - GENERAL ORDERABLES Final Result MADDI HOFF ([place]) 1 [facility] [place] [address] * XR Chest 1 Vw Portable (12/20/2020 [...] - Electronically signed by Noah JACKSON: RENETTA D: ??12/20/2020 4:42 PM T: ??12/20/2020 4:42 PM Report ID: [id number] Reading Location: [id number] Procedure Note Noah Cuba MD - 12/20/2020 [...] findings. OTHER: Joanie are seen of the left lower chest similar to prior. IMPRESSION: 1. No acute findings or infiltrate. THIS IS AN ELECTRONICALLY VERIFIED FINAL REPORT 12/20/2020 4:42 PM - Electronically signed by Noah JACKSON: RENETTA Report ID: [id number] Reading Location: [place] [address] us Julio Mccabe MD IMG XR PROCEDURES Final Res ult * eGFR (12/20/2020 4:10 PM CDT) eGFR 65 mL/min/1.7 3 m2 MADDI HOFF ([place]) Comment: Interpretive Data Reference Interval Normal ?>/= [...] LAB BLOOD ORDERABLES Final Result MADDI HOFF ([place]) 1 [facility] [place] [address] * (ABNORMAL) Iron profile w/ IBC (12/20/2020 4:10 PM CDT) Iron 50 35 - 145 mcg/dL [facility] ([place]) TIBC 397 250 - 400 mcg/dL [facility] ([place]) Transferrin saturation 13(L) 20 - 50 % [facility] ([place]) Blood specimen (specimen) 12/20/2020 4:10 PM CDT 12/20/2020 4:51 PM CDT Julio Mccabe MD LAB BLOOD ORDERABLES Final Result M[facility]DI [facility] ([place]) 1 [facility] [place] [address] * (ABNORMAL) Differential, auto (12/20/2020 4:10 PM CDT) Neutrophil abs 12.7(H) 1.7 - 6.5 K/cumm [...] LAB BLOOD ORDERABLES Final Result MADDI HOFF ([place]) 1 [facility] [place] [address] * Magnesium (12/20/2020 4:10 PM CDT) Pathologist [facility] Magnesium 2.1 1.4 - 2.5 mg/dL AMDDI HOFF ([place]) Blood specimen (specimen) 12/20/2020 4:10 PM CDT 12/20/2020 4:13 PM CDT Julio Mccabe MD LAB BLOOD ORDERABLES Final Result MADDI HOFF ([place]) 1 [facility] [place] [address] * Pro B-type natriuretic peptide (12/20/2020 4:10 PM CDT) NT-proBNP 126 <=450 pg/mL MADDI HOFF ([place]) Comment: Interpretive Comments: A. Dyspnea [...] et.al. Eur Heart J. 2006:27:330-337. 2. Greg RW, Nima SAUCEDO. J. AM Neetu Cardiol: Cardiovasc Imag. 2009;2: 216- 225. Interpretive Data Last Revised Date: 2018. Blood specimen (specimen) 12/20/2020 4:10 PM CDT 12/20/2020 4:13 PM CDT us Julio Mccabe MD LAB BLOOD ORDERABLES Final Result Performing Organization Address [facility]/ZIP Co de Phone Number MADDI HOFF ([place]) 1 [facility] [place] [address] * (ABNORMAL) Troponin T high-sensitivity series (baseline, 2hr, 4hr, 6hr) (12/20/2020 4:10 PM CDT) Trop T hs 21(H) <=14 ng/L MADDI HOFF ([place]) Comment: Interpretive Data For further hscTnT resources including the diagnostic algorithm and an aid in interpretation, copy and paste this link: [email or web address].testcatalog.org/[email or web address] Current Interpretive Data last revised 2020. Blood specimen (specimen) 12/20/2020 4:10 PM CDT 12/20/2020 4:13 PM CDT Julio Mccabe MD LAB BLOOD ORDERABLES Final Result Performing Organization Address [facility] Co de Phone Number MADDI HOFF ([place]) 1 [facility] [place] [employer] [address] * (ABNORMAL) Protime-INR (12/20/2020 4:10 PM CDT) PT 19.5(H) 9.5 - 13.6 sec MADDI HOFF ([place]) INR 1.8(H) 0.9 - 1.2 MADDI HOFF ([place]) Comment: Interpretive data Oral anticoagulant therapeutic ranges: [...] ORDERABLES Final Result MADDI HOFF ([place]) 1 [facility] [place] [address] * CRP (acute phase) (12/20/2020 4:10 PM CDT) Pathologist [facility] CRP <3.0 <=10.0 mg/L CERNER A ([place]) Blood specimen (specimen) 12/20/2020 4:10 PM CDT 12/20/2020 4:13 PM CDT Julio Mccabe MD LAB BLOOD ORDERABLES Final Result Performing Organization Address [facility] Co de Phone Number MADDI HOFF ([place]) 1 [facility] [place] [address] * (ABNORMAL) Comprehensive metabolic panel (12/20/2020 4:10 PM CDT) Pathologist [facility] Sodium 131(L) 135 - 145 mmol/L [facility] ([place]) Potassium, pl 3.1(L) 3.3 - 4.9 mmol/L [facility] ([place]) Chloride 95(L) 97 - 110 mmol/L [facility] ([place]) CO2 26 22 - 32 mmol/L [facility]) Anion gap 11 2 - 15 mmol/L [facility] ([place]) BUN 37(H) 8 - 25 mg/dL [facility] ([place]) Creatinine 0.84 0.60 - 1.10 mg/dL [facility] ([place]) Glucose 162 70 - 199 mg/dL [facility] ([place]) Comment: Interpretive Data Fasting [...] ORDERABLES Final Result [facility]ER [facility] ([place]) 1 [facility] [place] [address] * (ABNORMAL) CBC with auto differential (12/20/2020 [...] ([place]) MCHC 29.7(L) 32.3 - 35.7 g/dL [facility] ([place]) RDW CV 17.6(H) 11.1 - 14.9 % MADDI HOFF ([place]) RDW SD 47.2 35.7 - 48.1 fL MADDI HOFF ([place]) NRBC abs 0.09(H) 0.00 - 0.01 K/cumm MADDI HOFF ([place]) Blood specimen (specimen) 12/20/2020 4:10 PM CDT 12/20/2020 4:13 PM CDT us Julio Mccabe MD LAB BLOOD ORDERABLES Final Result Performing Organization Address [facility]/ZIP Co de Phone Number MADDI HOFF ([place]) 1 [facility] Department [place] [address] * ECG 12 lead (12/20/2020 4:09 PM CDT) 12/20/2020 4:09 PM CDT Narrative [facility] - 12/21/2020 10:18 AM CDT Vent Rate: 81 bpm RR Interval: 736 msec DE Interval: 162 msec QRS Duration: 119 msec QT Interval: 326 msec QTC Interval: 363 msec P-R-T [place]: -11 - -39 - 35 degrees Probable junctional rhythm LEFT AXIS DEVIATION ??[QRS AXIS < -30] PATTERN CONSISTENT WITH PULMONARY DISEASE MODERATE INTRAVENTRICULAR CONDUCTION DELAY ??[110+ ms QRS DURATION] NONSPECIFIC ST \T\ T-WAVE ABNORMALITY Compared to prior EKG, nonspecific ST/T changes are new and junctional rhythm has replaced sinus rhythm. Electronically Signed By: Dr Darin Corona us Julio Mccabe MD ECG ORDERABLES Final Resul t Performing Organization Address [facility]/ZIP Co de Phone Number [facility] [email or web address] [facility] * (ABNORMAL) POCT glucose (12/20/2020 3:15 PM CDT) [facility] Signature Glucose, POC 190(H) 71 - 98 mg/dL MADDI LUIS EDUARDO ([place]) Blood specimen (specimen) 12/20/2020 3:15 PM CDT 12/20/2020 3:15 PM CDT us Notinfile Unknown LAB POCT ORDERABLES - DEVICE F inal Result MADDI HOFF [place]) 1 [facility] [place] [address] documented in this encounter Visit Diagnoses Diagnosis Normocytic anemia- Primary Unspecified anemia Anemia, unspecified type Adverse effect of anticoagulant, initial encounter 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 Urinary tract infection associated with indwelling urethral catheter, initial encounter ([facility]) Pressure injury of contiguous region involving back [...] Coronary atherosclerosis of unspecified type of vessel, [place] or graft HTN (hypertension) Unspecified essential hypertension Occult blood in stools Nonspecific abnormal finding in stool contents Anemia, unspecified type Occult blood in stools Nonspecific abnormal finding in stool contents documented in this encounter Admitting Diagnoses Diagnosis [...] PRN, anxiety, Starting on Fri12/24/20 at 0756 Given 12/28/2020 8:11 AM CDT 0.25 mg Given 12/27/2020 8:25 PM CDT 0.25 mg Given 12/25/2020 10:52 PM CDT 0.25 mg amitriptyline (ELAVIL) tablet 50 mg 50 mg, oral, Nightly, First dose on Fri12/21/20 at 2100, Indications: Neuropathic PainIndications:Neuropathic Pain Given 12/27/2020 8:16 PM CDT 50 mg Given 12/26/2020 8:32 PM CDT 50 mg Given 12/25/2020 8:03 PM CDT 50 mg amoxicillin (AMOXIL) tablet/capsule 500 mg 500 mg, oral, 3 times daily, First dose on Fri12/25/20 at 1200, For 5 days, Indications: Urinary Tract/Genitourinary InfectionIndications:Urinary Tract/Genitourinary Infection Given 12/28/2020 2:56 PM CDT 500 mg Given 12/28/2020 8:12 AM CDT 500 mg Given 12/27/2020 8:15 PM CDT 500 mg anastrozole (ARIMIDEX) tablet 1 mg 1 mg, oral, Daily, First dose on Fri12/21/20 at 1400, Indications: prevention of breast cancer [...] Given 12/27/2020 8:38 AM CDT 5 mg bisacodyL (DULCOLAX) suppository 10 mg 10 mg, rectal, Nightly, First dose on Fri12/25/20 at 2100, Indications: constipationIndications:constipation Given 12/27/2020 8:16 PM CDT 10 mg Given 12/26/2020 8:33 PM CDT 10 mg Given 12/25/2020 8:03 PM CDT 10 mg bromfenac 0.07 % drops 1 drop [...] Given 12/26/2020 6:10 AM CDT 100 mg cholecalciferol (VITAMIN D-3) tablet 1,000 Units 1,000 [...] UNABLE to swallow/take PO glucose/juice., Starting on Fri12/21/20 at 1651, After treatment for hypoglycemia, recheck BG followed by treatment every 15 minutes until the BG is greater than 100 mg/dL. Then check BG 1 hour post treatment. If BG is less than 100 mg/dL, repeat Q15 minute BG checks and treatment. Call MD for each episode of hypoglycemia., Indications: hypoglycemic disorderIndications:hypoglycemic disorder dextrose gel in packet 15 g 15 [...] Given 12/27/2020 12:45 PM CDT 1 drop flecainide (TAMBOCOR) tablet 50 mg 50 mg, [...] unable to take PO glucose/juice., Starting on Magali 12/21/20 at 1651, After Glucagon is administered, position [...] Lantus 10 units sq hs units per [facility] protocol. Attach new pen needle required for [...] 1-3 Units, subcutaneous, Nightly, First dose on Fri12/21/20 at 2100, Blood Sugar Mid Dose PM [...] daily with meals, First dose on Magali 8/5/21 at 1800, Blood Sugar Mid Dose meal [...] CDT 1 Units Ri ght Lower Abdomen levothyroxine (SYNTHROID) tablet 75 mcg 75 mcg, [...] Given 12/26/2020 6:10 AM CDT 290 mcg magnesium hydroxide (MILK OF MAGNESIA) 80 mg/mL (33.3 mg/mL as elemental magnesium) oral suspension 30 mL 30 mL, oral, Daily, First dose on Fri12/26/20 at 0900 Given 12/28/2020 8:12 AM CDT 30 mL Given 12/27/2020 8:38 AM CDT 30 mL Given 12/26/2020 9:57 AM CDT 30 mL multivit kkxfsbge-ydlh-JX-calcium (THERA-M) tablet 1 tablet 1 tablet, oral, Daily, First dose on Fri12/21/20 at 1400 Given 12/28/2020 8:12 AM CDT 1 tablet Given 12/27/2020 8:38 AM CDT 1 tablet Given 12/26/2020 9:58 AM CDT 1 tablet ondansetron ODT (ZOFRAN-ODT) disintegrating tablet 4 mg 4 mg, oral, Every 4 hours PRN, nausea, vomiting, Starting on Fri12/25/20 at 1224 Given 12/25/2020 12:30 PM CDT [address] (PROTONIX) extended release tablet [...] Given 12/27/2020 8:16 PM CDT 20 mEq rosuvastatin (CRESTOR) tablet 10 mg 10 [...] Given 12/27/2020 8:42 AM CDT 10 mL spironolactone (ALDACTONE) tablet 25 mg 25 mg, oral, Daily, First dose on Fri12/21/20 at 1200 Given 12/28/2020 8:12 AM CDT 25 mg Given 12/27/2020 8:39 AM CDT 25 mg Given 12/26/2020 9:57 AM CDT 25 mg verapamil SR (CALAN SR) extended release [...] mcg tablet Take 25 mcg by mouth family services worker before breakfast 12/21/2020 metOLazone (ZAROXOLYN) 2.5 mg [...] mcg tablet Take 50 mcg by mouth family services worker before breakfast Reorder 12/28/2020 aspirin (ASPIRIN LOW [...] mcg tablet Take 50 mcg by mouth family services worker before breakfast 1 SITagliptin (JANUVIA) 100 mg [...] (Given - Provider: Bonny Boone RN) 1505 (JUL Hold - Provider: Automatic Transfer Provider - Reason: Patient not available)1648 (JUL Unhold - Provider: Automatic Transfer Provider)2015 (Given - Provider: Bonny Boone RN) amoxicillin (AMOXIL) tablet/capsule 500 mg 500 mg, [...] Provider)1648 (MAR Unhold - Provider: Automatic Transfer Provider)1658 (Given - Provider: Eva Holland RN)2014 (Given - Provider: Bonny Boone RN) 0812 (Given - Provider: Teagan Galicia, DES)1456 (Given - Provider: Teagan Galicia, DES) anastrozole (ARIMIDEX) tablet 1 mg 1 mg, [...] Provider) 0811 (Given - Provider: Teagan Galicia, RN) apixaban (ELIQUIS) tablet 5 mg 5 mg, oral, Every 12 hours scheduled, First dose (after last modification) on Fri12/23/20 at 0900, Indications: atrial fibrillation 0958 (Given - Provider: Eva Holland, DES)2031 (Given - Provider: Bonny Boone, DES) 0838 [...] from home 1000 (Given - Provider: Eva Holland, DES)2032 (Not Given - Provider: Bonny Boone, DES - Reason: Patient/family refused) 0838 (Given - [...] mellitus 0610 (Given - Provider: Bonny Boone, RN) 0607 (Given - Provider: Bonny Boone, RN)1505 (JUL Hold - Provider: Automatic Transfer [...] B12 Deficiency 0958 (Given - Provider: Eva Holland RN) [...] Transfer Provider)2015 (Given - Provider: Bonny Boone, RN) 0824 (Given - Provider: Teagan Galicia, DES) flecainide (TAMBOCOR) tablet 50 mg 50 mg, oral, 2 times daily, First dose on Magali 12/21/20 at 1200 0959 (Given - Provider: Eva Holland RN)2032 (Given - Provider: Bonny Boone, DES) 0838 (Given - Provider: Eva Holland RN)1505 (JUL Hold - Provider: Automatic Transfer Provider - Reason: Patient not available)1648 (JUL Unhold - Provider: Automatic Transfer Provider)2015 (Given - Provider: Bonny Boone, DES) 0811 (Given - Provider: Teagan Galicia RN) furosemide (LASIX) tablet 40 mg 40 mg, oral, Daily, First dose on Magali 12/21/20 at 1200 0958 (Given - Provider: Eva [...] Lantus 10 units sq hs units per [facility] protocol. Attach new pen needle required for each administration. Each new pen needle must be primed with 2 units prior to administration. Do not mix with other insulins. 1001 (Given - Provider: Eva Holland RN) 0842 (Given - Provider: Eva Holland RN)1505 (JUL Hold - Provider: Automatic Transfer Provider - Reason: Patient not available)1648 ([facility] Unhold - Provider: Automatic Transfer Provider) 0919 (Given - Provider: Teagan Galicia RN) insulin lispro (HumaLOG, ADMELOG) 100 unit/mL pen injection 1-3 Units 1-3 Units, subcutaneous, Nightly, First dose on Magali 8 at 2100, Blood Sugar Mid Dose PM [...] - Reason: Order parameters not met) 1505 ([facility] Hold - Provider: Automatic Transfer Provider - Reason: Patient not available)1648 ([facility] Unhold - Provider: Automatic Transfer Provider)2134 (Given [...] RN - Reason: Order parameters not met)1505 ([facility] Hold - Provider: Automatic Transfer Provider - Reason: Patient not available)1648 ([facility] Unhold - Provider: Automatic Transfer Provider)1730 (Not Given - Provider: Eva Holland RN - Reason: Order parameters not met) 0920 (Given - Provider: Teagan Galicia, DES)1346 (Given - Provider: Teagan Galicia, RN) levothyroxine [...] 0838 (Given - Provider: Eva Holland RN)1505 (MAR Hold - Provider: Automatic Transfer Provider - Reason: Patient not available)1648 ([facility] Unhold - Provider: Automatic Transfer Provider) 0812 (Given - Provider: Teagan Galicia, DES) multivit cbqkguuq-flgw-KV-calcium (THERA-M) tablet 1 tablet 1 tablet, oral, Daily, First dose on Fri12/21/20 at 1400 0958 (Given - Provider: Eva Holland RN) 0838 (Given - Provider: Eva Holland RN)1505 ([facility] Hold - Provider: Automatic Transfer Provider - Reason: Patient not available)1648 ([facility] Unhold - Provider: Automatic Transfer Provider) 0812 (Given - Provider: Teagan Galicia RN) pantoprazole DR (PROTONIX) extended release tablet 40 mg 40 mg, oral, Daily, First dose (after last modification) on Fri12/22/20 at 0900, Do not crush, chew, cut, dissolve, open or otherwise manipulate tablet/capsule., Indications: Treatment of Non-Bleeding Gastric Disorder 0958 (Given - Provider: Eva Holland RN) 0839 (Given - Provider: Eva Holland RN)1505 ([facility] Hold - Provider: Automatic Transfer Provider - Reason: Patient not available)1648 ([facility] Unhold - Provider: Automatic Transfer Provider) 0812 (Given - Provider: Teagan Galicia RN) potassium chloride ER (KLOR-CON) extended release tablet 20 mEq 20 mEq, oral, 4 times daily, First dose (after last reorder) on Fri12/21/20 at 1730, Do not crush, chew, cut, dissolve, open or otherwise manipulate tablet/capsule. 0958 (Given - Provider: Eva Holland RN)1233 (Given - Provider: Eva Holland RN)1645 (Given - Provider: Eva Holland RN)2032 (Given - Provider: Bonny Boone RN) 0839 (Given - Provider: Eva Holland RN)1245 (Given - Provider: Eva Holland RN)1505 ([facility] Hold - Provider: Automatic Transfer Provider - Reason: Patient not available)1648 ([facility] Unhold - Provider: Automatic Transfer Provider)1658 (Given - Provider: Eva Holland, DES)2015 (Given - Provider: Bonny Boone, DES) 0812 (Given - Provider: Teagan Galicia, RN)1346 (Given - Provider: Teagan Galicia, RN) rosuvastatin (CRESTOR) tablet 10 mg 10 mg, oral, Nightly, First dose on Fri12/21/20 at 1330 2032 (Given - Provider: Bonny Boone, DES) 1505 ([facility] Hold - Provider: Automatic Transfer Provider - Reason: Patient not available)1648 ([facility] Unhold - Provider: Automatic Transfer Provider)2015 (Given - Provider: Bonny Boone, DES) sodium chloride 0.9% flush 0.5-20 mL 0.5-20 mL, intra-catheter, Every 12 hours, First dose (after last modification) on Fri12/25/20 at 2100, Flush volume based on line type and size. 1002 (Given - Provider: Eva Holland RN)4 (Given - Provider: Bonny Bonoe, DES) 0842 (Given - Provider: Eva Holland RN)1505 ([facility] Hold - Provider: Automatic Transfer Provider - Reason: Patient not available)1648 ([facility] Unhold - Provider: Automatic Transfer Provider)2016 (Given - Provider: Bonny Boone, DES) 0930 (Given - Provider: Teagan Galicia, RN) spironolactone (ALDACTONE) tablet 25 mg 25 mg, oral, Daily, First dose on Fri12/21/20 at 1200 0957 (Given - Provider: Eva Holland, DES) 0839 (Given - Provider: Eva Holland RN)1505 ([facility] Hold - Provider: Automatic Transfer Provider - Reason: Patient not available)1648 ([facility] Unhold - Provider: Automatic Transfer Provider) 0812 (Given - Provider: Teagan Galicia, DES) verapamil SR (CALAN SR) extended release tablet 120 mg 120 mg, oral, Nightly, First dose on Fri12/21/20 at 2100, Tablets that are scored may be split, but do not crush, chew, dissolve, open or otherwise manipulate tablet/capsule. 2031 (Given - Provider: Bonny Boone, DES) 1505 ([facility] Hold - Provider: Automatic Transfer Provider - Reason: Patient not available)1648 ([facility] Unhold - Provider: Automatic Transfer Provider)2014 (Given - Provider: Bonny Boone RN) Continuous Medication Order 12/26/2020 12/27/2020 12/28/2020 sodium [...] Magali 12/21/20 at 1022, Indications: Pain 1505 ([facility] Hold - Provider: Automatic Transfer Provider - Reason: Patient not available)164 ([facility] Unhold - Provider: Automatic Transfer Provider) ALPRAZolam (XANAX) tablet 0.25 mg 0.25 mg, oral, 2 times daily PRN, anxiety, Starting on Fri12/24/20 at 0756 1505 ([facility] Hold - Provider: Automatic Transfer Provider - Reason: Patient not available)164 ([facility] Unhold - Provider: Automatic Transfer Provider)2024 (Given - Provider: Bonny Boone, DES) 08 (Given - Provider: Teagan Galicia, DES) dextrose (D10W) 10% bolus 250 mL(Linked [...] episode of hypoglycemia., Indications: hypoglycemic disorder 1505 ([facility] Hold - Provider: Automatic Transfer Provider - Reason: Patient not available)1648 ([facility] Unhold - Provider: Automatic Transfer Provider) dextrose [...] episode of hypoglycemia., Indications: hypoglycemic disorder 1505 ([facility] Hold - Provider: Automatic Transfer Provider - Reason: Patient not available)1648 ([facility] Unhold - Provider: Automatic Transfer Provider) docusate sodium (COLACE) capsule 100 mg 100 mg, oral, 2 times daily PRN, constipation, Starting on Fri12/22/20 at 0801, Indications: constipation 0607 (Given - Provider: Bonny Boone RN) 0606 (Given - Provider: Bonny Boone RN)1505 ([facility] [place] Hold - Provider: Automatic Transfer Provider - Reason: Patient not available)1648 ([facility] [place] Unhold - Provider: Automatic Transfer Provider)2025 (Given - Provider: Bonny Boone RN) 0603 (Given - Provider: Bonny Boone RN) glucagon injection 1 mg 1 mg, [...] Use immediately following reconstitution., Indications: Hypoglycemia 1505 ([facility] [place] Hold - Provider: Automatic Transfer Provider - Reason: Patient not available)1648 ([facility] [place] Unhold - Provider: Automatic Transfer Provider) ondansetron ODT (ZOFRAN-ODT) disintegrating tablet 4 mg 4 mg, oral, Every 4 hours PRN, nausea, vomiting, Starting on Fri12/25/20 at 1224 1505 ([facility] [place] Hold - Provider: Automatic Transfer Provider - Reason: Patient not available)1648 ([facility] [place] Unhold - Provider: Automatic Transfer Provider) senna-docusate (PERICOLACE) 8.6-50 mg per tablet 1 tablet 1 tablet, oral, 2 times daily PRN, constipation, Starting on Fri12/25/20 at 0749 0607 (Given - Provider: Bonny Boone, RN) 0606 (Given - Provider: Bonny Boone, DES)1505 ([facility] [place] Hold - Provider: Automatic Transfer Provider - Reason: Patient not available)1648 ([facility] [place] Unhold - Provider: Automatic Transfer Provider) 0603 (Given - Provider: Bonny Boone, DES) sodium chloride 0.9% flush 0.5-20 mL 0.5-20 mL, intra-catheter, As needed, line care, Starting on Fri12/22/20 at 1010, Flush volume based on line type and size. Flush before and after each use. 1505 ([facility] [place] Hold - Provider: Automatic Transfer Provider - Reason: Patient not available)1648 ([facility] [place] Unhold - Provider: Automatic Transfer Provider) Linked [...] Count Last Ordered Date First Ordered Date sodium chloride 0.9% infusion 2 12/27/2020 12/22/2020 magnesium citrate oral solution 296 mL 4 12/21/2020 amoxicillin (AMOXIL) tablet/capsule 500 mg 1 12/25/2020 bisacodyL (DULCOLAX) suppository 10 mg 3 12/24/2020 bisacodyl EC (DULCOLAX EC) tablet 15 mg 1 0 12/25/2020 linaCLOtide (LINZESS) capsule 290 mcg 1 01/2021 magnesium hydroxide (MILK OF MAGNESIA) 80 mg/mL (33.3 mg/mL as elemental magnesium) oral suspension 30 mL 1 12/25/2020 mineral oil (FLEET MINERAL O IL) enema 1 enema 1 12/25/2020 ondansetron ODT (ZOFRAN-ODT) disintegrating tablet 4 mg 1 12/25/2020 senna-docusate (PERICOLACE) 8.6-50 mg per tablet 1 tablet 2 12/25/2020 12/22/2020 sodium chloride 0.9% flush 0.5-20 mL 3 01/202112/22/2020 ALPRAZolam (XANAX) tablet 0.25 mg 1 021 vancomycin 1250 mg/250 mL in sodium chloride 0.9% (premix) 1,250 mg 2 12/24/2020 ferric gluconate (FERRLECIT) 125 mg of elemental iron in sodium chloride 0.9% 100 mL IVPB 3 12/23/2020 12/21/2020 sodium phosphate 30 mmol in sodium chloride 0.9% 250 mL IVPB 1 12/23/2020 apixaban (ELIQUIS) tablet 5 mg 3 12/22/2020 12/21/2020 docusate sodium (COLACE) capsule 100 mg 1 0 12/22/2020 sodium phosphate 15 mmol in sodium chloride 0.9% 250 mL IVPB 1 12/22/2020 acetaminophen (TYLENOL) tablet 500 mg 1 09/2020 amitriptyline (ELAVIL) tablet 50 mg 1 12/21 anastrozole (ARIMIDEX) tablet 1 mg 1 2020 aspirin chewable tablet 81 mg 1 12/21/2020 bromfenac 0.07 % drops 1 drop 1 12/21/2020 canagliflozin (INVOKANA) tablet 100 mg 2 cefepime (MAXIPIME) 1,000 mg in sodium chloride 0.9% 100 mL IVPB 4 12/21/2020 12/20/2020 cholecalciferol (VITAMIN D-3 ) tablet 1,000 Units 1 12/21/2020 cyanocobalamin (Vitamin B-12 ) tablet 100 mcg 1 12/21/2020 cyanocobalamin (Vitamin B-12 ) tablet 250 mcg 1 12/21/2020 dextrose (D10W) 10% bolus 250 mL 1 12/22/19 dextrose gel in packet 15 g 1 12/21/2020 dorzolamide (TRUSOPT) 2 % op hthalmic solution 1 drop 1 12/21/2020 flecainide (TAMBOCOR) tablet 50 mg 1 2020 furosemide (LASIX) tablet 40 mg 1 glucagon injection 1 mg 1 12/21/2020 insulin glargine (LANTUS, BA SAGLAR, SEMGLEE) 100 unit/mL (3 mL) pen injection 10 Units 1 12/21/2020 insulin glargine (LANTUS, BA SAGLAR, SEMGLEE) 100 unit/mL (3 mL) pen injection 8 Units 1 12/21/2020 insulin lispro (HumaLOG, ADM ELOG) 100 unit/mL pen injection 1-3 Units 1 12/21/2020 insulin lispro (HumaLOG, ADM ELOG) 100 unit/mL pen injection 1-5 Units 1 12/21/2020 Lactated Ringer's (LR) infusion 1 levothyroxine (SYNTHROID) tablet 50 mcg 1 0 12/21/2020 levothyroxine (SYNTHROID) tablet 75 mcg 1 0 12/21/2020 linaCLOtide (LINZESS) capsule 72 mcg 1 080 09/2020 multivit hxbocmdg-qehr-ZU-ca lcium (THERA-M) tablet 1 tablet 1 12/21/2020 multivitamin tablet 1 tablet 1 12/21/2020 NON FORMULARY (FOR INPATIENT USE) [address] (PROTONIX) e xtended release tablet 40 mg 2 12/21/2020 potassium chloride ER (KLOR- CON) extended release tablet 20 mEq 3 12/21/2020 potassium chloride ER (KLOR- CON) extended release tablet 40 mEq 1 12/21/2020 rosuvastatin (CRESTOR) tablet 10 mg 1 12/21 spironolactone (ALDACTONE) tablet 25 mg 1 0 12/21/2020 verapamil SR (CALAN SR) exte nded release tablet 120 mg 1 12/21/2020 acetaminophen (TYLENOL) tablet 650 mg 1 08/2020 dextrose 5% and Lactated Ringer's infusion 1 12/20/2020 ioversoL (OPTIRAY 320) injection 100 mL 1 0 12/20/2020 Lactated Ringer's (LR) bolus 1,000 mL 1 08/2020 oxyCODONE (ROXICODONE) tablet 5 mg 1 2020 pantoprazole (PROTONIX) injection 40 mg 1 0 12/20/2020 sodium chloride 0.9% IVPB 0-250 mL 2 2020 Lab Orders Without Results Count Last [...] documented as of this encounter Care Teams Director Internal Control Relationship Specialty Start Date End Date Destiney Camargo MD PCP - General 09/29/18 12/05/22 Landon Valencia MD Consulting Physician Cardiology 03/22/19 12/05/22 Migue Herman MD Consulting Physician Urology 05/16/19 Sonny Palmer MD Surgeon General Surgery 05/16/19 documented as of this encounter
--- OUTSIDE RECORDS SUMMARY | 2024-05-26 13:00 | XMS_ITS | Encounter Summary ---
Author Organization [facility] Healthcare Address [address] [place] [address] Care Team Providers Care [employer] Name Role Phone Theresa Camargo MD Primary Care Provider [phone] Laz Valencia MD Unavailable [phone] Migue Hreman MD Unavailable [phone] Sonny Palmer MD Unavailable [phone] Reason for Visit * Reason Comments Abdominal Pain Nausea Vomiting Encounter Details Date Type Department Care Team (Late st Contact Info) Description 11/26/2020 10:46 PM CDT - 11/27/2020 2:11 AM CDT [facility] Emergency Department [address] [place] [address] Jerzy Akhtar MD [address] [place] [id number] Constipation, unspecified constipation type (Primary Dx); Non-intractable vomiting with nausea, unspecified vomiting type Discharge Disposition: Discharge to home or self [...] on file 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 Gender Identity Not on file Sexual Orientation Not on file documented as of this encounter Last Filed Vital Signs Vital Sign Reading Time Taken Comments Blood Pressure 121/45 11/27/2020 12:30 AM CDT Pulse 82 11/27/2020 12:30 AM CDT Temperature 35.8 ??C (96.5 ??F) 11/26/2020 8:47 PM CD T Respiratory Rate 18 11/26/2020 8:47 PM CDT Oxygen Saturation 95% 11/27/2020 12:30 AM CDT Inhaled Oxygen Concentration - - Weight 80.7 kg (178 lb) 11/26/2020 8:47 PM CDT Height 165.1 cm (5' 5 ) 11/26/2020 8:47 PM CDT Body Mass Index 29.62 11/26/2020 8:47 PM CDT documented in this encounter Discharge Diagnoses Diagnosis Constipation, unspecified - CONSTIPATION, UNSPECIFIED Nausea with vomiting, unspecified - NAUSEA WITH VOMITING, UNSPECIFIED Atherosclerotic heart disease of [place] coronary artery without angina pectoris - ATHEROSCLEROTIC HEART DISEASE OF [place] CORONARY ARTERY WITHOUT ANGINA PECTORIS Unspecified atrial fibrillation (HCC) - UNSPECIFIED ATRIAL FIBRILLATION Type 2 diabetes mellitus without complications (CMS/HCC) (HCC) - TYPE 2 DIABETES MELLITUS WITHOUT COMPLICATIONS Hyperlipidemia, unspecified - HYPERLIPIDEMIA, UNSPECIFIED Hypertensive heart disease with heart failure (CMS/HCC) (HCC) - HYPERTENSIVE HEART DISEASE WITH HEART FAILURE Unspecified hypertensive heart disease with heart failure Heart failure, unspecified (CMS/HCC) (HCC) - HEART FAILURE, UNSPECIFIED Heart failure, unspecified [facility] (current) use of anticoagulants - [facility] (CURRENT) USE OF ANTICOAGULANTS Long-term (current) use of anticoagulants Acquired absence of other specified parts of digestive tract - ACQUIRED ABSENCE OF OTHER SPECIFIED PARTS OF DIGESTIVE TRACT documented in this encounter Discharge Instructions * Attachments The following attachments cannot be sent through Care Everywhere. * Acute Nausea and Vomiting (Discharge Care) (Urdu) * Constipation (Adult) (Urdu) documented in this encounter Medications at Time of Discharge anastrozole (ARIMIDEX) 1 mg tabletIndications :prevention of breast cancer in high risk women Take 1 tablet (1 mg total) by mouth daily nitrofurantoin monohydrate (MACROBID) 100 mg capsule Take 1 capsule (100 mg total) by mouth 2 (two) times a day for 7 days 14 capsule 11/27/2020 1 albuterol HFA (PROAIR HFA) 90 mcg/actuation inhaler inhale 2 puff by inhalation route every 4 - 6 hours as needed 0 Inhaler 0 07/01/2016 1 amitriptyline (ELAVIL) 25 mg tabletIndications :Neuropathic Pain Take 50 mg by mouth nightly 03/31/2019 3 artificial tears (SYSTANE) 0.3 % gel Apply 1 drop to both eyes nightly as needed 1 aspirin (ASPIRIN LOW DOSE) 81 mg tablet take 1 tablet by oral route every day 0 0 02/16/2016 1 clopidogrel (PLAVIX) 75 mg tablet take 1 tablet by oral route every day 0 0 07/01/[address] (NexIUM) 40 mg capsule TAKE 1 CAPSULE DAILY 90 1 01/29/2007 1 flecainide (TAMBOCOR) 50 mg tablet TAKE 1 TABLET TWICE A DAY 180 tablet 3 06/13/2020 1 FREESTYLE LITE STRIPS strip TEST BLOOD SUGARS TWICE A DAY DX E11.9.. 1 03/23/2019 1 furosemide (LASIX) 40 mg tablet TAKE 1 TABLET DAILY 90 tablet 3 01/10/2020 1 glimepiride (AMARYL) 1 mg tablet TAKE 1 TABLET (1 MG) BY MOUTH 3 TIMES DAILY. 2 04/14/2019 1 glimepiride (AMARYL) 1 mg tablet 2 mg w/ breakfast , 2 mg with lunch and 1 mg with dinner Po 09/11/2020 3 Invokana 100 mg tablet 07/21/2019 1 levothyroxine (SYNTHROID) 25 mcg tablet Take 25 mcg by mouth travel med surg rn before breakfast 1 metOLazone (ZAROXOLYN) 2.5 mg tabletIndications :friday and TAKE 1 TABLET (2.5 MG TOTAL) BY MOUTH 2 (TWO) TIMES A WEEK 8 tablet 3 10/30/2020 1 multivitamin (ONCE DAILY) tablet tablet take 1 tablet by oral route every day with food 0 0 07/01/2016 3 polyethylene glycol (MIRALAX) 17 gram packet Take 17 g by mouth daily 1 potassium chloride ER (KLOR-CON) 10 mEq CR tablet Take 4 tablet/capsule (40 mEq total) by mouth 2 (two) times a day 03/22/2019 1 rosuvastatin (CRESTOR) 10 mg tablet TAKE 1 TABLET BY MOUTH 1 TIME PER DAY AT BEDTIME 90 5 03/07/2009 1 SITagliptin (JANUVIA) 100 mg tablet take 1 tablet by oral route every day 0 0 07/01/2016 1 spironolactone (ALDACTONE) 25 mg tablet Take 1 tablet (25 mg total) by mouth daily 30 tablet 11 04/04/2020 1 verapamil ER (VERELAN) 120 mg 24 hr capsule Take 1 capsule (120 mg total) by mouth nightly 30 capsule 11 04/04/2020 1 documented as of this encounter Ordered Prescriptions Prescription Sig Dispense Quantity Refills Last Filled Start Date End Date nitrofurantoin monohydrate (MACROBID) 100 mg capsule Take 1 capsule (100 mg total) by mouth 2 (two) times a day for 7 days 14 capsule 11/27/2020 1 documented in this encounter Discharge Disposition Disposition Code Departure Means Destination Discharge to home or self care documented in this encounter ED Notes * Jerzy Akhtar MD - 11/27/2020 1:16 AM CDT Chief Complaint Patient presents with ??? Abdominal Pain ??? Nausea ??? Vomiting HPI 11/26/2020 11:45 PM Perla eLon is a 80 y.o. female nonsmoker with a h/o CAD (s/p CABG), A-fib, CHF, DM, HTN, HLD, PEon Eliquis (s/p mechanical suction thrombectomy, 09/28/20), TIA, CATY, asthma, anemia, IBS, and breast cancer (s/p left lumpectomy), s/p cholecystectomy, appendectomy, and CATHY-BSO, who presents to the ED with vomiting, with 4-5 episodes of emesis, since 5 PM. Associated symptoms include nausea, chesttightness, and generalized weakness. No exacerbating or alleviating factors. Patient states that she last ate at 1 PM. She denies abdominal pain, diarrhea, and SOB. She states that her last BM was 4 days ago, which is normal for her. No other complaints at this time. Per chart review: Patient was hospitalized 09/26/20-10/04/20 at [facility] for a saddle PE. Patient had mechanical suction thrombectomy on 09/28/20. Normal stress test w/ NM MPI SPECT on 10/03/20. Initially treated with heparin, then switched to Eliquis. Discharged on Eliquis. Past Medical History: Diagnosis Date ??? A-fib (CMS/HCC) ??? Anemia Anemia ??? Asthma Asthma ??? Atrial fibrillation (CMS/HCC) ??? Chronic coronary artery disease Coronary artery disease ??? Diabetes mellitus (CMS/HCC) ??? Familial spastic paraplegia (CMS/HCC) ??? Glaucoma Glaucoma ??? Glaucoma ??? Herpes [...] for chills and fever. HENT: Negative for ear pain and sore throat. Eyes: Negative for pain and visual disturbance. Respiratory: Negative for cough and shortness of breath. Cardiovascular: Positive for chest pain (tightness). Negative for palpitations. Gastrointestinal: Positive for nausea and vomiting. Negative for abdominal pain and diarrhea. Genitourinary: Negative for dysuria and hematuria. Musculoskeletal: Negative for arthralgias and back pain. Skin: Negative for color change and rash. Neurological: Positive for weakness (generalized). Negative for seizures and syncope. All other systems reviewed and are negative. Physical Exam ED Triage Vitals [11/26/202046] Temp Pulse Resp BP SpO2 (!) 35.8 ??C (96.5 ??F) 98 18 113/60 92 % Temp src Heart Rate Source Patient Position BP Location FiO2 (%) Temporal -- -- -- -- Physical Exam Vitals and nursing note reviewed. Constitutional: General: She is not in acute distress. Appearance: She is well-developed. HENT: Head: Normocephalic and atraumatic. Eyes: Conjunctiva/sclera: Conjunctivae normal. Cardiovascular: Rate and Rhythm: Normal rate and regular rhythm. Heart sounds: Normal heart sounds. No murmur heard. Pulmonary: Effort: Pulmonary effort is normal. No respiratory distress. Breath sounds: Normal breath sounds. Abdominal: General: Bowel sounds are normal. There is no distension. Palpations: Abdomen is soft. Tenderness: There is no abdominal tenderness. There is no guarding. Musculoskeletal: Cervical back: Neck supple. Skin: General: Skin is warm and dry. Neurological: Mental Status: She is alert and oriented to person, place, and time. Procedures Labs Reviewed CBC WITH AUTO DIFFERENTIAL - Abnormal Result Value WBC 29.6 (*) Hgb 12.7 Hct 41.8 Plt 465 (*) MPV 10.3 RBC 5.38 (*) MCV 77.7 (*) MCH 23.6 (*) MCHC 30.4 (*) RDW CV 17.1 (*) RDW SD 46.6 NRBC abs 0.00 COMPREHENSIVE METABOLIC PANEL - Abnormal Sodium 137 Potassium, pl 3.6 Chloride 100 CO2 24 Anion gap 13 BUN 33 (*) Creatinine 0.88 Glucose 183 Calcium 10.5 (*) Bilirubin, total <0.2 Protein, pl 7.2 Albumin 4.0 Alk phos 97 ALT 22 AST 19 DIFFERENTIAL AUTO - Abnormal Neutrophil abs 23.8 (*) Imm gran abs 0.2 (*) Lymphocyte abs 1.6 Monocyte abs 3.8 (*) Eosinophil abs 0.2 Basophil abs 0.1 Neutrophil pct 80.2 Imm gran pct 0.8 Lymphocyte pct 5.3 Monocyte pct 12.9 Eosinophil pct 0.6 Basophil pct 0.2 PROTIME-INR - Abnormal PT 20.4 (*) INR 1.8 (*) LIPASE Lipase 65 BILIRUBIN, DIRECT Bilirubin, direct <0.2 EGFR GFR 62 TROPONIN T HIGH-SENSITIVITY SERIES (BASELINE, 2HR, 4HR, 6HR) Trop T hs 10 PRO B-TYPE NATRIURETIC PEPTIDE NT-proBNP 123 CT Abdomen Pelvis W Contrast Final Result Large amount of stool throughout the colon. No colitis or other acute abnormality identified. CT Chest PE (CTA) W Contrast Final Result 1. No acute pulmonary embolus. ?? 2. Clear lungs bilaterally. BP 121/45 Pulse 82 Temp (!) 35.8 ??C (96.5 ??F) (Temporal) Resp 18 Ht 165.1 cm (5' 5 ) Wt80.7 kg (178 lb) SpO2 95% BMI 29.62 kg/m?? MDM Final diagnoses: Constipation, unspecified constipation type Non-intractable vomiting with nausea, unspecified vomiting type This note is prepared by Fariba Ruelas, acting as a scribe for Jerzy Akhtar MD. I electronically signed this note at 2:35 PM on 12/07/2020. I, Jerzy Akhtar MD, have personally performed the services described in the documentation, reviewed the documentation, as recorded by the scribe in my presence, and it accurately and completely records my words and actions. Jerzy Akhtar MD 11/27/20 0141 Jerzy Akhtar MD 12/07/20 [id number] * Sejal Cooper RN - 11/26/2020 8:45 PM CDT Pt c/o abd pain, N/V that started at 1800. Denies diarrhea or fevers. documented in this encounter Plan of Treatment Not on file documented as of this encounter Procedures Procedure Name Priority Date/Time Associated Diagnosis Comments TROPONIN T HIGH-SENSITIVITY SERIES (BASELINE, 2HR, 4HR, 6HR) STAT 11/27/2020 12:36 AM CDT PRO B-TYPE NATRIURETIC PEPTIDE STAT 11/27/2020 12:36 AM CDT PROTIME-INR STAT 11/27/2020 12:36 AM CDT ECG 12-LEAD STAT 11/27/2020 12:[address] ABDOMEN PELVIS W CONTRAST ED 11/27/2020 12:[address] CHEST PE W CONTRAST ED 12:24 AM CDT EGFR STAT 11/26/2020 8:56 PM CDT DIFFERENTIAL AUTO STAT 11/26/2020 8:5 6 PM CDT CBC WITH AUTO DIFFERENTIAL STAT 11/26/2020 8:56 PM CDT LIPASE STAT 11/26/2020 8:56 PM CDT BILIRUBIN, DIRECT STAT 11/26/2020 8:5 6 PM CDT COMPREHENSIVE METABOLIC PANEL STAT 11/26/2020 8:56 PM CDT documented in this encounter Results * (ABNORMAL) Protime-INR (11/27/2020 12:36 AM CDT) PT 20.4(H) 9.5 - 13.6 sec [facility] ([place]) INR 1.8(H) 0.9 - 1.2 [facility] ([place]) Comment: Interpretive data Oral anticoagulant therapeutic ranges: Venous thromboembolism prophylaxis or treatment: 2.0-3.0 CARDIOLOGY Standard range: 2.0-3.0 High-intensity range: 2.5-3.5 Refer to indication-specific guidelines for appropriate target ranges for prosthetic heart valve replacement. Current interpretive data was last revised on 2019. Blood specimen (specimen) 11/27/2020 12:36 AM CDT 11/27/2020 12:49 AM CDT us Jerzy Akhtar MD LAB BLOOD ORDERABLES Fi nal Result [facility] ([place]) 1 [facility] Department of Laboratories [place], [place] [id number] * Pro B-type natriuretic peptide (11/27/2020 12:36 AM CDT) NT-proBNP 123 <=450 pg/mL [facility] ([place]) Comment: Interpretive Comments: A. Dyspnea in Acute [...] Last Revised Date: 2018. Blood specimen (specimen) 11/27/2020 12:36 AM CDT 11/27/2020 12:49 AM CDT us Jerzy Akhtar MD LAB BLOOD ORDERABLES Fi nal Result [facility] ([place]) 1 [facility] Department [place] [address] * Troponin T high-sensitivity series (baseline, 2hr, 4hr, 6hr) (11/27/2020 12:36 AM CDT) Trop T hs 10 <=14 ng/L [facility] ([place]) Comment: Interpretive Data For further hscTnT resources including the diagnostic algorithm and an aid in interpretation, copy and paste this link: https://nrl.testcatalog.org/show/hsTrop Current Interpretive Data last revised 2020. Blood specimen (specimen) 11/27/2020 12:36 AM CDT 11/27/2020 12:48 AM CDT Jerzy Akhtar MD LAB BLOOD ORDERABLES Fi nal Result [facility] ([place]) 1 [facility] Department [place] [address] * ECG 12 lead (11/27/2020 12:28 AM CDT) 11/27/2020 12:2 8 AM CDT Narrative [facility] - 11/27/2020 9:21 AM CDT Vent Rate: 83 bpm RR Interval: 719 msec [place] Interval: 206 msec QRS Duration: 134 msec QT Interval: 405 msec QTC Interval: 445 msec P-R-T [place]: 72 - -54 - 59 degrees SINUS RHYTHM INTRAVENTRICULAR CONDUCTION DELAY ??[130+ ms QRS DURATION] ABNORMAL ECG No change from prior EKG Electronically Signed By: Laz Valencia MD Jerzy Akhtar MD ECG ORDERABLES Final R esult Performing Organization Address [facility] Co de Phone Number [email or web address] [facility] * CT Abdomen Pelvis W Contrast (11/27/2020 12:27 AM CDT) Anatomical Region Laterality Modality Body N/A Computed Tomogra phy 11/27/2020 12:3 7 AM CDT Narrative 11/27/2020 12:42 AM CDT EXAM DESCRIPTION: ?? CT ABDOMEN PELVIS W CONTRAST REASON FOR STUDY: ?? Generalized abd pain, nausea, and vomiting started in the evening of 11/26. ??Hx of cholecystectomy, hysterectomy, left breast cancer with lumpectomy. Pt had blood clot removed in October. ??100ml of Optiray 350, 20g iv lt forearmDuration: 11/26 evening TECHNIQUE: ??CT scan of the abdomen and pelvis performed with intravenous and ?? without oral contrast using helical scanning technique with dynamic intravenous contrast injection. Reconstructed coronal and sagittal MPR images reviewed. All images stored on PACS. Automated exposure control was used as a dose optimization technique for this examination. CONTRAST TYPE/DOSE: ?? 100 of optiray 350 injected via ??lt forearm COMPARISON: ?? None FINDINGS: LOWER CHEST: Lung bases clear. ??Heart size normal. ??Heavy annular calcification versus prosthesis. ??Effusion. LIVER/BILIARY: Liver unremarkable. Biliary tree normal in caliber. GALLBLADDER: Absent. SPLEEN: Normal. PANCREAS: Normal. ADRENAL GLANDS: Normal. KIDNEYS/URINARY TRACT: Kidneys and ureters appear normal. ??Bladder collapsed around Schmitt balloon. GI: Stomach and small bowel appear normal. ??Large amount of stool throughout the colon. ??No wall thickening or inflammation. ??Appendix not confidently distinguished from adjacent bowel. OTHER ABDOMINAL/PELVIS: Major vascular structures are grossly patent and normal in caliber. ??Moderate atherosclerotic calcification. ??50% stenosis of the right common iliac artery. ??No enlarged lymph node or free fluid. MSK: Moderate disc disease and facet arthropathy. BODY WALL: Normal. IMPRESSION: ??Large amount of stool throughout the colon. ??No colitis or other acute abnormality identified. THIS IS AN ELECTRONICALLY VERIFIED FINAL REPORT 11/27/2020 12:42 AM - Electronically signed by Femi Fermin M.D. AR: SPARKLE D: ??11/27/2020 12:42 AM T: ??11/27/2020 12:42 AM Report ID: [id number] Reading Location: ??[id number] Procedure Note Femi Fermin MD - 11/27/2020 EXAM DESCRIPTION: CT ABDOMEN PELVIS W CONTRAST REASON FOR STUDY: Generalized abd pain, nausea, and vomiting started inthe evening of 11/26. Hx of cholecystectomy, hysterectomy, left breast cancerwith lumpectomy. Pt had blood clot removed in October. 100ml of Optiray 350, 20giv lt forearmDuration: 11/26 evening TECHNIQUE: CT scan of the abdomen and pelvis performed with intravenousand without oral contrast using helical scanning technique with dynamic intravenous contrast injection. Reconstructed coronal and sagittal MPRimages reviewed. All images stored on PACS. Automated exposure control was used as a dose optimization technique forthis examination. CONTRAST TYPE/DOSE: 100 of optiray 350 injected via lt forearm COMPARISON: None FINDINGS: LOWER CHEST: Lung bases clear. Heart size normal. Heavy annular calcification versus prosthesis. Effusion. LIVER/BILIARY: Liver unremarkable. Biliary tree normal in caliber. GALLBLADDER: Absent. SPLEEN: Normal. PANCREAS: Normal. ADRENAL GLANDS: Normal. KIDNEYS/URINARY TRACT: Kidneys and ureters appear normal. Bladdercollapsed around Schmitt balloon. GI: Stomach and small bowel appear normal. Large amount of stoolthroughout the colon. No wall thickening or inflammation. Appendix not confidently distinguished from adjacent bowel. OTHER ABDOMINAL/PELVIS: Major vascular structures are grossly patent and normal in caliber. Moderate atherosclerotic calcification. 50% stenosisof the right common iliac artery. No enlarged lymph node or free fluid. MSK: Moderate disc disease and facet arthropathy. BODY WALL: Normal. IMPRESSION: Large amount of stool throughout the colon. No colitis orother acute abnormality identified. THIS IS AN ELECTRONICALLY VERIFIED FINAL REPORT 11/27/2020 12:42 AM - Electronically signed by Femi Fermin M.D. AR: SPARKLE Report ID: [id number] Reading Location: [place] [address] Jerzy Akhtar MD IMG CT PROCEDURES Final Result * CT Chest PE (CTA) W Contrast (11/27/2020 12:24 AM CDT) Anatomical Region Laterality Modality Body N/A Computed Tomogra phy 11/27/2020 12:3 4 AM CDT Narrative 11/27/2020 12:46 AM CDT EXAM DESCRIPTION: ?? CT CHEST PE (CTA) W CONTRAST REASON FOR STUDY: ?? Chest tightness started 11/26 in the evening. Pt recently had a PE in October that pt states they went in and had to remove. Hx of left breast cancer with lumpectomy. 100ml of Optiray 350, 20g iv lt forearmDuration: 11/26 TECHNIQUE: ??CT angiogram of the chest performed with intravenous contrast using helical scanning technique with dynamic intravenous contrast injection. Reconstructed coronal and sagittal MPR images reviewed. All images stored on PACS. ??3D MIP images rendered on scanning unit and reviewed at time of interpretation. Automated exposure control was used as a dose optimization technique for this examination. CONTRAST TYPE/DOSE: ?? 100 of optiray 350 injected via ??lt forearm COMPARISON: ?? None FINDINGS: VASCULATURE: ??No identified pulmonary emboli. LUNGS: ??No nodules or masses. No pneumonia. PLEURA: ??No effusion. No pneumothorax. MEDIASTINUM/MICHA: ??Calcified right paratracheal and right hilar lymph nodes compatible with old healed granulomatous disease. HEART: ??Heart size is normal with no pericardial effusion. AXILLA: ??No adenopathy. CHEST WALL: ??Surgical clips in the left breast are seen. HARDWARE/LINES/TUBES: ??None. UPPER ABDOMEN: ??No significant abnormality. MUSCULOSKELETAL: ??No significant abnormality. OTHER: ??No significant abnormality. IMPRESSION: ?? 1. ??No acute pulmonary embolus. 2. ??Clear lungs bilaterally. THIS IS AN ELECTRONICALLY VERIFIED FINAL REPORT 11/27/2020 12:46 AM - Electronically signed by Vivek Stout M.D. BB: DEDRA D: ??11/27/2020 12:46 AM T: ??11/27/2020 12:46 AM Report ID: [id number] Reading Location: ??[id number] Procedure Note Vivek Stout MD PhD - 11/27/2020 EXAM DESCRIPTION: CT CHEST PE (CTA) W CONTRAST REASON FOR STUDY: Chest tightness started 11/26 in the evening. Ptrecently had a PE in October that pt states they went in and had to remove. Hx of left breast cancer with lumpectomy. 100ml of Optiray 350, 20g iv lt forearmDuration: 11/26 TECHNIQUE: CT angiogram of the chest performed with intravenous contrast using helical scanning technique with dynamic intravenous contrastinjection. Reconstructed coronal and sagittal MPR images reviewed. All images storedon PACS. 3D MIP images rendered on scanning [...] MEDIASTINUM/MICHA: Calcified right paratracheal and right hilar lymphnodes compatible with old healed granulomatous disease. HEART: [...] Vivek Stout M.D. BB: DEDRA Report ID: [id number] Reading Location: [place] [address] Jerzy Akhtar MD IMG CT PROCEDURES Final Result * eGFR (11/26/2020 8:56 PM CDT) eGFR 62 mL/min/1.7 3 m2 [facility] ([place]) Comment: [...] was last reviewed 2020 Blood specimen (specimen) 11/26/2020 8:56 PM CDT 11/26/2020 8:59 PM CDT Jerzy Akhtar MD LAB BLOOD ORDERABLES Fi nal Result Performing Organization Address City/[facility]/ZIP Co de Phone Number [facility] ([place]) 1 [facility] [place] [address] * Bilirubin, direct (11/26/2020 8:56 PM CDT) Bilirubin, direct <0.2 0.1 - 0.3 mg/dL [facility] ([place]) Blood specimen (specimen) 11/26/2020 8:56 PM CDT 11/26/2020 8:59 PM CDT Jerzy Akhtar MD LAB BLOOD ORDERABLES Fi nal Result Performing Organization Address [facility] de Phone Number [facility] ([place]) 1 [facility] [place] [employer] [place] [address] * (ABNORMAL) Differential, auto (11/26/2020 8:56 PM CDT) Neutrophil abs 23.8(H) 1.7 - 6.5 K/cumm [facility] ([place]) Imm gran abs 0.2(H) 0.0 - 0.1 K/cumm [facility] ([place]) Lymphocyte abs 1.6 0.8 - 3.3 K/cumm [facility] ([place]) Monocyte abs 3.8(H) 0.2 - 0.8 K/cumm [facility] ([place]) Eosinophil abs 0.2 0.0 - 0.5 K/cumm [facility] ([place]) Basophil abs 0.1 0.0 - 0.1 K/cumm [facility] ([place]) Neutrophil pct 80.2 % [facility] ([place]) Comment: Interpretive Data Percent cell count reference ranges are not reported, since discordance with absolute values may lead to misinterpretation of CBC data. Current Interpretive Data was last revised on 2017. Imm gran pct 0.8 % [facility] ([place]) Comment: Interpretive Data Percent cell count reference ranges are not reported, since discordance with absolute values may lead to misinterpretation of CBC data. Current Interpretive Data was last revised on 2017. Lymphocyte pct 5.3 % [facility] ([place]) Comment: Interpretive Data Percent cell count reference ranges are not reported, since discordance with absolute values may lead to misinterpretation of CBC data. Current Interpretive Data was last revised on 2017. Monocyte pct 12.9 % [facility] ([place]) Comment: Interpretive Data Percent cell count reference ranges are not reported, since discordance with absolute values may lead to misinterpretation of CBC data. Current Interpretive Data was last revised on 2017. Eosinophil pct 0.6 % [facility] ([place]) Comment: Interpretive Data Percent cell count reference ranges are not reported, since discordance with absolute values may lead to misinterpretation of CBC data. Current Interpretive Data was last revised on 2017. Basophil pct 0.2 % [facility] ([place]) Comment: Interpretive Data Percent cell count reference ranges are not reported, since discordance with absolute values may lead to misinterpretation of CBC data. Current Interpretive Data was last revised on 2017. Blood specimen (specimen) 11/26/2020 8:56 PM CDT 11/26/2020 8:59 PM CDT us Jerzy Akhtar MD LAB BLOOD ORDERABLES nal Result [facility] ([place]) 1 [facility] Department [place] [address] * (ABNORMAL) Comprehensive metabolic panel (11/26/2020 8:56 PM CDT) Sodium 137 135 - 145 mmol/L [facility] ([place]) Potassium, pl 3.6 3.3 - 4.9 mmol/L [facility] Chloride 100 97 - 110 mmol/L [facility]) CO2 24 22 - 32 mmol/L [facility] Anion gap 13 2 - 15 mmol/L [facility] BUN 33(H) 8 - 25 mg/dL [facility] Creatinine 0.88 0.60 - 1.10 mg/dL [facility] Glucose 183 70 - 199 mg/dL [facility] [...] interpretive data was last revised 2017. Calcium 10.5(H) 8.5 - 10.3 mg/dL [facility] Bilirubin, total <0.2 0.1 - 1.2 mg/dL [facility] Protein, pl 7.2 6.5 - 8.5 g/dL [facility] Albumin 4.0 3.5 - 5.0 g/dL [facility] Alk phos 97 40 - 130 Units/L [facility]) ALT 22 7 - 45 Units/L [facility] AST 19 10 - 45 Units/L [facility] Blood specimen (specimen) 11/26/2020 8:56 PM CDT 11/26/2020 8:59 PM CDT us Jerzy Akhtar MD LAB BLOOD ORDERABLES Fi nal Result [facility]) 1 [facility] Department [place] [address] * Lipase (11/26/2020 8:56 PM CDT) Lipase 65 10 - 99 Units/L [facility]) Blood specimen (specimen) (Blood, Venous) 11/26/2020 8:56 PM CDT 11/26/2020 8:59 PM CDT us Jerzy Akhtar MD LAB BLOOD ORDERABLES Fi nal Result [facility] 1 [facility] Department [place] [address] * (ABNORMAL) CBC with auto differential (11/26/2020 8:56 PM CDT) WBC 29.6(H) 3.8 - 9.9 K/cumm [facility]) Hgb 12.7 11.9 - 15.5 g/dL [facility]) Hct 41.8 35.6 - 45.5 % [facility] Plt 465(H) 150 - 400 K/cumm [facility]) MPV 10.3 9.1 - 12.3 fL [facility] RBC 5.38(H) 3.90 - 5.20 M/cumm [facility]) MCV 77.7(L) 81.3 - 96.4 fL [facility] MCH 23.6(L) 27.1 - 33.3 pg [facility] MCHC 30.4(L) 32.3 - 35.7 g/dL [facility] RDW CV 17.1(H) 11.1 - 14.9 % [facility] RDW SD 46.6 35.7 - 48.1 fL [facility] NRBC abs 0.00 0.00 - 0.01 K/cumm [facility] Blood specimen (specimen) (Blood, Venous) 11/26/2020 8:56 PM CDT 11/26/2020 8:59 PM CDT us Jerzy Akhtar MD LAB BLOOD ORDERABLES Fi nal Result [facility] 1 [facility] Department [place] [address] documented in this encounter Visit Diagnoses Diagnosis Constipation, unspecified constipation type- Primary Non-intractable vomiting with nausea, unspecified vomiting type documented in this encounter Administered Medications Inactive Administered Medications - up to 3 most recent administrations Medication Order MAR Action Action Date Dose Rate Site cefTRIAXone (ROCEPHIN) 1,000 mg/10 mL in sterile water (premix) 1,000 mg 1,000 mg, intravenous, at 600 mL/hr, Administer over 1 Minutes, Nightly, First dose on Fri11/27/20 at 0117, Indications: Urinary Tract/Genitourinary InfectionIndications:Urin fozia Tract/Genitourinary Infection Given 11/27/2020 1:49 AM CDT 1,000 mg 600 mL/hr ioversoL (OPTIRAY 350) injection 125 mL 125 mL, intravenous, Once in imaging, contrast, Starting on Fri11/27/20 at 0010, For 1 dose Contrast Given 11/27/2020 12:22 AM CDT 100 mL sodium chloride 0.9% bolus 500 mL 500 mL, intravenous, at 500 mL/hr, Administer over 1 Hours, Once, On 11/26/20 at 2356, For 1 dose New Bag 11/27/2020 12:45 AM CDT 500 mL 500 mL/hr documented in this encounter Active and Recently Administered Medications Times are shown in CDT. Scheduled Medication Order 11/25/2020 11/26/2020 11/27/2020 cefTRIAXone (ROCEPHIN) 1,000 mg/10 mL in sterile water (premix) 1,000 mg 1,000 mg, intravenous, at 600 mL/hr, Administer over 1 Minutes, Nightly, First dose on Fri11/27/20 at 0117, Indications: Urinary Tract/Genitourinary Infection 0149 (Given - Provid er: Noe Santos RN - Comment: given by Iliana Zuniga) sodium chloride 0.9% bolus 500 mL (COMPLETED) 500 mL, intravenous, at 500 mL/hr, Administer over 1 Hours, Once, On 11/26/20 at 2356, For 1 dose 0045 (New Bag - Prov ider: Iliana Zuniga RN)0145 (Stopped - Provider: Noe Santos RN) PRN Medication Order 11/25/2020 11/26/2020 11/27/2020 ioversoL (OPTIRAY 350) injection 125 mL (COMPLETED) 125 mL, intravenous, Once in imaging, contrast, Starting on 11/27/20 at 0010, For 1 dose 0022 (Contrast Given - Provider: Rosa Espinoza, RT - Comment: [id number]) documented in this encounter Orders Nursing Count Last Ordered Date First Orde red Date CARDIO RESPIRATORY MONITORING 1 11/26/2020 MISCELLANEOUS NURSING CARE ORDER (SPECIFY) 1 11/26/2020 IV Count Last Ordered Date First Orde red Date SALINE LOCK IV 1 11/26/2020 documented in this encounter Care Teams Vp Digital Marketing Social Media And Crm Relationship Specialty Start Date End Date Theresa Camargo MD PCP - General 09/29/18 12/05/22 Laz Valencia MD Consulting Physician Cardiology 03/22/19 12/05/22 Migue Herman MD Consulting Physician Urology 05/16/19 Sonny Palmer MD Surgeon General Surgery 05/16/19 documented as of this encounter
--- OUTSIDE RECORDS SUMMARY | 2024-05-26 13:00 | XMS_ITS | Encounter Summary ---
Author Organization [facility] Address [address] [place] [address] Care Team Providers Care Rolls Mill Operator Name Role Phone Theresa Camargo MD Primary Care Provider Laz Valencia MD Unavailable [phone] Migue Herman MD Unavailable [phone] Sonny Palmer MD Unavailable [phone] Encounter Details Date Type Department Care Team (Late st Contact Info) Description 09/27/2020 [facility] Resident Care Assistant [address] [facility] [address] [place] [address] Laz Valencia MD [address] [place] [address] [address] [place] [address] Social History Tobacco Use Types Packs/Day Years Used Date Smoking Tobacco: Never Smokeless Tobacco: Never Alcohol Use Standard Drinks/Week Comments No 0 (1 standard drink = 0.6 oz pur e alcohol) PHQ-2 Answer Date Recorded PHQ-2 Score 0 03/06/2019 Comments No Sex and Gender Information Value Date Recorded Sex Assigned at Not on file Legal Sex Female 6:56 PM PHYSICIAN NEONATOLOGY Gender Identity Not on file Sexual Orientation Not on file documented as of this encounter Miscellaneous Notes * Telephone Encounter - Nieves Wayne MA - 09/27/2020 2:28 PM CDT Pt daughter notified * Telephone Encounter - Laz Valencia MD - 09/27/2020 2:23 PM CDT Need to get consult by Dr. Maya and he will contact me. . Laz Valencia MD * Telephone Encounter - Nieves Wayne MA - 09/27/2020 1:51 PM CDT Pt daughter Alicia called in concern for her mom. She saw another one of her doctors at [facility] and was sent to the ER for a chest x-ray, they found a large blood clot on her lung, she was admitted. Pt daughter said, the doctor has mentioned doing a clot buster procedure on her but is running around the hospital getting opinions from other doctors to see if it is safe for her or not Pt daughter is very concerned and would like to know your opinion, she wants to know if you would speak to the doctor at [facility] in regards to her mothers care. I advised her I would pass the message a long. Daughter Alicia [phone] (on HIPPA) documented in this encounter Plan of Treatment Not on file documented as of this encounter Visit Diagnoses Not on filedocumented in this encounter Care Teams Rolls Mill Operator Relationship Specialty Start Date End Date Theresa Camargo MD PCP - General 09/29/18 12/05/22 Laz Valencia MD Consulting Physician Cardiology 03/22/19 12/05/22 Migue Herman MD Consulting Physician Urology 05/16/19 Sonny Palmer MD Surgeon General Surgery 05/16/19 documented as of this encounter
--- OUTSIDE RECORDS SUMMARY | 2024-05-26 13:00 | XMS_ITS | Encounter Summary ---
Author Organization [facility] Address [address] [place] [address] Care Team Providers Care Tank Car Loader Name Role Phone Theresa Camargo MD Primary Care Provider Laz Valencia MD Unavailable [phone] Migue Herman MD Unavailable [phone] Sonny Palmer MD Unavailable [phone] Encounter Details Date Type Department Care Team (Late st Contact Info) Description 09/21/2020 [facility] Commercial Front Load Driver [address] [place] [address] [address] [place] [address] Brandon Briones MA Social History [...] on file Legal Sex Female 6:56 PM STULL INSTALLER Gender Identity Not on file Sexual Orientation Not on file documented as of this encounter Miscellaneous Notes * Telephone Encounter - Brandon Briones MA - 09/21/2020 2:23 PM CDT Patients daughter advised. * Telephone Encounter - Laz Valencia MD - 09/21/2020 12:53 PM CDT Okay to stay off aspirin and Plavix * Telephone Encounter - Brandon Briones MA - 09/21/2020 10:43 AM CDT Patients daughter called to inform you that Perla was recently in [place] for a bleed in her left gluteus and that her Plavix and ASA have been stopped for 2 weeks. documented in this encounter Plan of Treatment Not on file documented as of this encounter Visit Diagnoses Not on filedocumented in this encounter Care Teams Tank Car Loader Relationship Specialty Start Date End Date Theresa Camargo MD PCP - General 09/29/18 12/05/22 Laz Valencia MD Consulting Physician Cardiology 03/22/19 12/05/22 Migue Herman MD Consulting Physician Urology 05/16/19 Sonny Palmer MD Surgeon General Surgery 05/16/19 documented as of this encounter
--- OUTSIDE RECORDS SUMMARY | 2024-05-26 13:00 | XMS_ITS | Encounter Summary ---
Author Organization [facility] Address [address] [place] [address] Care Team Providers Care Nanotechnology Engineering Technologist Name Role Phone Theresa Camargo MD Primary Care Provider [phone] Laz Valencia MD Unavailable [phone] Migue Herman MD Unavailable [phone] Sonny Palmer MD Unavailable [phone] Encounter Details Date Type Department Care Team (Late st Contact Info) Description 12/22/2020 11:22 AM CDT Anesthesia Event [facility] [address] [place] [address] Christopher eByer MD [phone] [place] [id number] Anesthesia Record Procedure Summary Procedure Name Responsible Anesthesiologist Anesthesia Start Time Anesthesia Stop Time ESOPHAGOGASTRODUODENOSCOPY BIOPSY Christopher Beyer MD 12/22/20 1122 12/22/20 1134 Events Date Time Event Comment 12/22/2020 1015 1122 An Start 1122 An Start Data 1123 Start Supplemental O2 1124 In Room 1126 Patient Positioned Laterally 1126 An Induction The patient was reevaluated immediately before moderate or deep sedation use and before anesthesia induction. 1126 Anesthesia Ready 1126 Proc Start 1134 Proc Fin 1134 an stop data 1134 Handoff to RN I completed my handoff [...] the time of handoff: No value filed. 1134 An Stop 1137 Out of Room Meds Name Total lidocaine (cardiac) syringe 2 % 60 mg propofol 90 mg phenylephrine 100 mcg * Agents Name O2 * Blood No blood administrations on file. Lines, Drains, and Airways Type Details Placement Removal Urethral Catheter Type: Latex; Size: 2 0 Fr.; Balloon Size: 30 mL; Removal Date: 01/20/21; Removal Time: 1355 12/21/20 0702 by 01/20/21 1355 by Torri Narvaez, DES Peripheral IV Placement Date: 12/20/20; Existing LDA Placed by: EMS; Catheter Size: 20 G; Orientation: Right; Location: Forearm; Removal Date: 12/23/20; Removal Time: 527; Removal Reason: Occluded 12/20/20 0000 by Darby Burger RN 12/23/20 0528 by Annamarie Naidu RN RETIRED Wound 12/20/20; 1855; No; Ulceration (non-pressure ulcer); Left, Right; Buttocks; Shearing like; 04/20/24 (Retired LDA, Removed/Completed by [employer] with LDA Utility); 1213 (Retired LDA, Removed/Completed by [employer] with LDA Utility) 12/20/20 1855 by Bonny Boone, DES 04/20/24 1213 by Discharge Provider, Automatic documented in this encounter Social History Tobacco [...] often do you attend chur ch or congregation services? Never 12/25/2020 Do you belong to any clubs o r organizations such as mormon groups, unions, fraternal or athletic groups, or [...] on file Legal Sex Female 6:[address] FLUSHER DRIVER Gender Identity Not on file Sexual Orientation Not on file documented as of this encounter OR Notes * Anesthesia Postprocedure Evaluation - Christopher Beyer MD - 12/22/2020 12:00 PM CDT Patient: Perla Leon Procedure Summary Date: 12/22/20 Room / Location: [facility] ROOM 1 / [facility] Anesthesia Start: 1122 Anesthesia Stop: 113 Procedure: ESOPHAGOGASTRODUODENOSCOPY BIOPSY (N/A ) Diagnosis: Anemia, unspecified type Occult blood in stools (Anemia, unspecified type [D64.9]) (Occult blood in stools [R19.5]) Providers: Neeta Patel MD Responsible Provider: Christopher Beyer MD Anesthesia Type: general/TIVA ASA Status: 3 Anesthesia Type: general/TIVA Last vitals BP 113/45 (BP Location: Right arm, Patient Position: Reclining;HOB 30 degrees) Pulse 70 Temp 36.4 ??C (97.5 ??F) (Temporal) Resp 18 SpO2 93% Anesthesia Post Evaluation Patient location during evaluation: PACU Patient participation: complete - patient participated Level of consciousness: fully awake Pain score: 0 Pain management: adequate Airway patency: adequate Evidence of recall: no Cardiovascular status: acceptable Respiratory status: acceptable Hydration status: acceptable Pt is: normothermic Nausea/Vomiting status: none No complications documented. * Anesthesia Preprocedure Evaluation - Christopher Beyer MD - 12/22/2020 10:06 AM CDT Images from the original note were not included. Anesthesia Evaluation Perla Leon is a 80 y.o. female Procedure(s): ESOPHAGOGASTRODUODENOSCOPY Pre-Op Diagnosis Codes: * Anemia, unspecified type [...] with c/o generalized weakness Past Medical History Neurological + TIA + Neuromuscular disease (hereditary spastic paraplegia) Cardiovascular + Hypertension + CAD + Atrial fibrillation/flutter - Rhythm type: paroxysmal (multiple episodes < 7 days). 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 Hepatic / Heme + History of anemia Endocrine / Other + Diabetes mellitus - Diabetes type 2. Outpatient insulin use: current. + Thyroid disease - hypothyroidism + Cancer history- in remission. Cancer type: breast. Pertinent negatives: obesity (BMI >30) Functional Capacity Functional capacity: <4 METs Functional capacity limited by a non-cardiovascular, non-pulmonary condition. Patient Active Problem List Diagnosis ??? Asthma [...] Fx nose surgery ??? OTHER SURGICAL HISTORY 2004 Right Arthroscopy knee ??? OTHER SURGICAL HISTORY [...] Salmeterol Other (See comments) Reaction: colon problems, Med List Status: Nurse Complete Set By: Cindy Keenan RN at 12/21/2020 8:34 AM Taking? Last Dose Start Date End Date Provider amitriptyline (ELAVIL) 25 mg tablet Unknown 03/31/19 -- Provider, MD Desiree anastrozole (ARIMIDEX) 1 mg tablet Unknown -- -- Provider, MD Desiree apixaban (ELIQUIS) 5 mg tablet Unknown -- -- Provider, MD Desiree aspirin (ASPIRIN LOW DOSE) 81 mg tablet Unknown 02/16/16 -- Julian Payne MD take 1 tablet by oral route every day bromfenac 0.07 % drops Unknown -- -- Provider, MD Desiree canagliflozin (INVOKANA) 100 mg tablet Unknown -- -- Provider, MD Desiree cholecalciferol (cholecalciferol) 25 mcg (1,000 unit) tablet Unknown -- -- Provider, MD Desiree cyanocobalamin (Vitamin B-12) 100 mcg tablet Unknown -- -- ProviderDesiere MD dorzolamide (TRUSOPT) 2 % ophthalmic solution Unknown -- -- ProviderDesiree MD esomeprazole DR (NexIUM) 40 mg capsule Unknown -- -- Provider, MD Desiree flecainide (TAMBOCOR) 50 mg tablet Unknown -- -- Provider, MD Desiree furosemide (LASIX) 40 mg tablet Unknown -- -- Provider, MD Desiree glimepiride (AMARYL) 1 mg tablet Unknown -- -- Desiree Walker MD insulin glargine (LANTUS, BASAGLAR, SEMGLEE) 100 unit/mL (3 mL) pen for injection Unknown -- -- Desiree Walker MD levothyroxine (SYNTHROID) 75 mcg tablet Unknown -- -- Desiree Walker MD multivitamin (ONCE DAILY) tablet tablet Unknown 07/01/16 -- Elle Sadler MD take 1 tablet by oral route every day with food potassium chloride ER (KLOR-CON) 20 mEq CR tablet Unknown -- -- Desiree Walker MD rosuvastatin (CRESTOR) 10 mg tablet Unknown -- -- Desiree Walker MD SITagliptin (JANUVIA) 100 mg tablet Unknown -- -- Desiree Walker MD spironolactone (ALDACTONE) 25 mg tablet Unknown 04/04/20 -- Laz Valencia MD Take 1 tablet (25 mg total) by mouth daily verapamil SR (CALAN SR) 120 mg CR tablet Unknown -- -- ProviderDesiree MD wheat dextrin 3 gram/3.5 gram powder in packet Unknown -- -- Desiree Walker MD Current Facility-Administered Medications: ??? acetaminophen (TYLENOL) tablet 500 mg, 500 mg, oral, Q4H PRN, 500 mg at 12/21/20 1028 ??? amitriptyline (ELAVIL) tablet 50 mg, 50 mg, oral, Nightly, 50 mg at 12/21/202051 ??? anastrozole (ARIMIDEX) tablet 1 mg, 1 mg, oral, Daily, 1 mg at 12/21/20 1413 ??? [Held by Provider] apixaban (ELIQUIS) tablet 5 mg, 5 mg, oral, Q12H KATHARINE, 5 mg at 12/21/20 1409 ??? [Held by Provider] aspirin chewable tablet 81 mg, 81 mg, oral, Daily, 81 mg at 12/21/20 1411 ??? bromfenac 0.07 % drops 1 drop, 1 drop, ophthalmic, BID, 1 drop at 12/22/20 0935 ??? canagliflozin (INVOKANA) tablet 100 mg, 100 mg, oral, Before breakfast ??? cefepime (MAXIPIME) 1,000 mg in sodium chloride 0.9% 100 mL IVPB, 1,000 mg, intravenous, Q12H KATHARINE, Last Rate: 200 mL/hr at 12/21/202048, 1,000 mg at 12/21/202048 ??? cholecalciferol (VITAMIN D-3) tablet 1,000 Units, 1,000 Units, oral, Daily, 1,000 Units at 12/21/20 1409 ??? cyanocobalamin (Vitamin B-12) tablet 250 mcg, 250 mcg, oral, Daily, 250 mcg at 12/21/201155 ??? dextrose gel in packet 15 g, 15 g, oral, Q15 Min PRN OR dextrose (D10W) 10% bolus 250 mL, 250 mL, intravenous, Q15 Min PRN ??? docusate sodium (COLACE) capsule 100 mg, 100 mg, oral, BID PRN ??? dorzolamide (TRUSOPT) 2 % ophthalmic solution 1 drop, 1 drop, each eye, BID, 1 drop at ??? ferric gluconate (FERRLECIT) 125 mg of elemental iron in sodium chloride 0.9% 100 mL IVPB, 125 mg of elemental iron, intravenous, Once ??? flecainide (TAMBOCOR) tablet 50 mg, 50 mg, oral, BID, 50 mg at 12/21/202051 ??? furosemide (LASIX) tablet 40 mg, 40 mg, oral, Daily, 40 mg at 12/21/201155 ??? glucagon injection 1 mg, 1 mg, intramuscular, Q30 Min PRN ??? insulin glargine (LANTUS, BASAGLAR, SEMGLEE) 100 unit/mL (3 mL) pen injection 8 Units, 8 Units,subcutaneous, QAM, 8 Units at 12/21/20 1205 ??? insulin lispro (HumaLOG, ADMELOG) 100 unit/mL pen injection 1-3 Units, 1-3 Units, subcutaneous,Nightly ??? insulin lispro (HumaLOG, ADMELOG) 100 unit/mL pen injection 1-5 Units, 1-5 Units, subcutaneous,TID with meals, 1 Units at 12/21/20 1805 ??? levothyroxine (SYNTHROID) tablet 75 mcg, 75 mcg, oral, Daily - 0600, 75 mcg at 12/22/20 0642 ??? linaCLOtide (LINZESS) capsule 72 mcg, 72 mcg, oral, Before breakfast, 72 mcg at 12/21/20 1804 ??? multivit kvanddqj-xlbw-ER-calcium (THERA-M) tablet 1 tablet, 1 tablet, oral, Daily, 1 tablet at12/21/20 1409 ??? oxyCODONE (ROXICODONE) tablet 5 mg, 5 mg, oral, Q4H PRN ??? pantoprazole DR (PROTONIX) extended release tablet 40 mg, 40 mg, oral, Daily ??? potassium chloride ER (KLOR-CON) extended release tablet 20 mEq, 20 mEq, oral, QID, 20 mEq at 12/21/202049 ??? rosuvastatin (CRESTOR) tablet 10 mg, 10 mg, oral, Nightly, 10 mg at 12/21/20 1409 ??? senna-docusate (PERICOLACE) 8.6-50 mg per tablet 1 tablet, 1 tablet, oral, BID PRN ??? sodium phosphate 15 mmol in sodium chloride 0.9% 250 mL IVPB, 15 mmol, intravenous, Once ??? spironolactone (ALDACTONE) tablet 25 mg, 25 mg, oral, Daily ??? verapamil SR (CALAN SR) extended release tablet 120 mg, 120 mg, oral, Nightly, 120 mg at 12/21/202050 Social History Tobacco Use Smoking Status Never Smoker Smokeless Tobacco Never Used Substance and Sexual Activity Alcohol Use No Substance and Sexual Activity Drug Use No Family History Problem Relation Age of Onset ??? Breast cancer Mother Cancer, breast; /Cancer -breast; ??? Heart failure Father Congestive heart failure; ??? Hypertension Brother Hypertension; ??? Hypertension Brother Hypertension; Vitals: 12/22/20 0245 12/22/20 0600 12/22/20 0819 BP: 112/89 130/50 Pulse: 64 79 74 Resp: 18 20 Temp: 36.1 ??C (97 ??F) 36.1 ??C (97 ??F) SpO2: 93% 96% PT: 12/20/2020: 19.5 sec* INR: 12/20/2020: 1.8* APTT: No results found for requested labs within last 720 hours. Hgb A1C: No results found for requested labs within last 720 hours. CBC RBC: 12/22/2020: 3.56 M/cumm* RDW: No results found for requested labs within last 720 hours. MCHC: 12/22/2020: 29.0 g/dL* MCH: 12/22/2020: 23.0 pg* MCV: 12/22/2020: 79.5 fL* Hct: 12/22/2020: 28.3 %* Hgb: 12/22/2020: 8.2 g/dL* WBC: 12/22/2020: 9.0 K/cumm MPV: 12/22/2020: 10.2 fL Platelets: 12/22/2020: 281 K/cumm RDW CV: 12/22/2020: 18.1 %* RDW Sd: 12/22/2020: 51.8 fL* BMP Glucose: 12/22/2020: 96 mg/dL Calcium: 12/22/2020: 9.5 mg/dL Sodium: 12/22/2020: 139 mmol/L Potassium: 12/22/2020: 4.0 mmol/L CO2: 12/22/2020: 25 mmol/L Chloride: 12/22/2020: 106 mmol/L BUN: 12/22/2020: 19 mg/dL Creatinine: 12/22/2020: 0.68 mg/dL DOS Physical Exam Medical history, medications, and allergies reviewed. Attestation: This PAT evaluation 12/22/2020. Airway Exam: Mallampati: II Cervical ROM: FROM TM distance: normal Jaw ROM: full Cardiovascular Exam: Rate: regular Rhythm: regular Pulmonary Exam: LCTA EENT Exam: trachea midline Dental Exam: Appears intact Skin Exam: Skin is warm. Turgor is normal. Abdominal Exam: Abdomen is soft. Current state: Patient's current state is cooperative. Anesthesia Plan ASA 3 Planned anesthesia: General/TIVA Induction: Induction: intravenous. Postoperative Plan: No plan for postoperative opioid use. No postoperative mechanical ventilation intended. Patient's planned disposition post procedure is Floor. Informed Consent: Discussed plan with TRAVEL GUIDE. Anesthesia plan and risks discussed with patient. [...] Action Action Date Dose Rate Site lidocaine (cardiac) (XYLOCAINE) preservative free injection intravenous, As needed, Starting on Fri12/22/20 at 1126, Anesthesia Intra-op, Indications: Ventricular ArrhythmiasIndications:Ventricul ar Arrhythmias Given 12/22/2020 11:26 AM CDT 60 mg phenylephrine (MARY-SYNEPHRINE) injection intravenous, As needed, Starting on Fri12/22/20 at 1130, Anesthesia Intra-op Given 12/22/2020 11:30 AM CDT 100 mcg propofoL (DIPRIVAN) 10 mg/mL IV intravenous, As needed, Starting on Fri12/22/20 at 1126, Anesthesia Intra-op Given 12/22/2020 11:30 AM CDT 20 mg Given 12/22/2020 11:28 AM CDT 20 mg Given 12/22/2020 11:26 AM CDT 50 mg documented in this encounter Care Teams Nanotechnology Engineering Technologist Relationship Specialty Start Date End Date Theresa Camargo MD PCP - General 09/29/18 12/05/22 Laz Valencia MD Consulting Physician Cardiology 03/22/19 12/05/22 Migue Herman MD Consulting Physician Urology 05/16/19 Sonny Palmer MD Surgeon General Surgery 05/16/19 documented as of this encounter
--- OUTSIDE RECORDS SUMMARY | 2024-05-26 13:00 | XMS_ITS | Encounter Summary ---
Author Organization [facility] Address [address] [place] [address] Care Team Providers Care Deputy [employer] Name Role Phone Theresa Camargo MD Primary Care Provider Laz Valencia MD Unavailable [phone] Migue Herman MD Unavailable [phone] Sonny Palmer MD Unavailable [phone] Encounter Details Date Type Department Care Team (Late st Contact Info) Description 12/08/2020 Telephone [place] [employer] [id number] [facility] [address] [place] [address] Laz Valencia MD [address] [place] [id number] Social History Tobacco Use Types Packs/Day Years Used Date Smoking Tobacco: Never Smokeless Tobacco: Never Alcohol Use Standard Drinks/Week Comments No 0 (1 standard drink = 0.6 oz pur e alcohol) PHQ-2 Answer Date Recorded PHQ-2 Score 0 03/06/2019 Comments No Sex and Gender Information Value Date Recorded Sex Assigned at Not on file Legal Sex Female 6:56 PM DIRECTOR OF ASSISTED LIVING Gender Identity Not on file Sexual Orientation Not on file documented as of this encounter Miscellaneous Notes * Telephone Encounter - Caroline Sinha MA - 12/11/2020 10:25 AM CDT Tried to call number given back, no answer and no vm. I will try again, or if they call back I willlet them know. * Telephone Encounter - Laz Valencia MD - 12/08/2020 9:47 PM CDT Need repeat INR after starting cipro . OK to continue coumadin * Telephone Encounter - Caroline Sinha MA - 12/08/2020 4:35 PM CDT Cipro, and for 5 days * Telephone Encounter - Laz Valencia MD - 12/08/2020 2:59 PM CDT Depends on what antibiotics CT she is getting and how long? * Telephone Encounter - Caroline Sinha MA - 12/08/2020 2:31 PM CDT Can pt hold warfarin while she is doing treatment for UTI . Please Advise [phone] Dr. Mary Jo LIMA documented in this encounter Plan of Treatment Not on file documented as of this encounter Visit Diagnoses Not on filedocumented in this encounter Care Teams Deputy [employer] Relationship Specialty Start Date End Date Theresa Camargo MD PCP - General 09/29/18 12/05/22 Laz Valencia MD Consulting Physician Cardiology 03/22/19 12/05/22 Migue Herman MD Consulting Physician Urology 05/16/19 Sonny Palmer MD Surgeon General Surgery 05/16/19 documented as of this encounter
--- OUTSIDE RECORDS SUMMARY | 2024-05-26 13:00 | XMS_ITS | Encounter Summary ---
Author Organization [facility] Healthcare Address [address] [place] [address] Care Team Providers Care Nub Card Tender Name Role Phone Destiney Camargo MD Primary Care Provider [phone] Landon Valencia MD Unavailable [phone] Migue Herman MD Unavailable [phone] Sonny Palmer MD Unavailable [phone] Reason for Visit * Reason Comments Weakness - Generalized Encounter Details Date Type Department Care Team (Late st Contact Info) Description 12/27/2020 4:37 PM CDT - 12/27/2020 5:07 PM CDT Surgery [facility] [address] [place] [address] Neeta Patel MD [address] [place] [id number] SIGMOIDOSCOPY Surgery Details Date/Time Status Location OR Service Patient Class Case Class Case Type Trauma Case? 12/27/2020 4:37 PM Posted [facility] ENDOSCOPY GI 01 Gastroenterology Inpatient Urgent - 24 hours Panel 1 Procedure LRB Anes Op Region Wound Class Comments SIGMOIDOSCOPY N/A Monitor Anesthesia Care Surgeon Surgeon Role [...] often do you attend chur ch or gnosticist services? 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 Gender Identity Not on file Sexual Orientation Not on file documented as of this encounter Last Filed Vital Signs Vital Sign Reading Time Taken Comments Blood Pressure 113/40 12/27/2020 4:57 PM CDT Pulse 73 12/27/2020 4:57 PM CDT Temperature 36.1 ??C (97 ??F) 12/27/2020 4:57 PM CDT Respiratory Rate 18 12/27/2020 4:57 PM CDT Oxygen Saturation 96% 12/27/2020 4:57 PM CDT Inhaled Oxygen Concentration - - [...] Care Physician at Discharge: Destiney Camargo MD [phone] Admission Date: 12/20/2020 Discharge Date: 12/28/2020 Admission Location: [facility] Problems/Diagnoses: Principal Problem: Normocytic anemia Active [...] SIGMOIDOSCOPY Other Procedures: None. Pertinent Test Results: LOC Whittaker ( ) as of 12/28/2020 18:37 Ref. [...] Home Health Primary disciplines requested: Physical Therapy [facility]: Therapy to Eval/ Treat [...] the skin every morning Commonly known as: LANTUS, BASAGLAR, SEMGLEE levothyroxine 75 mcg tablet Take 1 tablet (75 mcg total) by mouth muff winder before breakfast Commonly known as: SYNTHROID linaCLOtide [...] Center 01/08/2021 2:00 PM Landon Valencia MD [facility] PSA Decent 08/06/2021 11:15 AM Landon Valencia MD [facility] PSA Decent Contact Information for Follow-ups Destiney Camargo MD Specialty: Internal Medicine Relationship: PCP - General [id number] [address] Next Steps: Follow up on 12/29/2020 Instructions: 10:40 AM [facility] Home Care Services Specialty: Home Health and Hospice [address] [facility] [address] Next Steps: Follow up Questions: Service Line: Home Health Primary disciplines requested: Physical Therapy [facility]: Therapy to Eval/ Treat [...] Scheduled Destiney Camargo MD Specialty: Internal Medicine [id number] [place] [address] [address] [facility] [address] Next Steps: Follow up Instructions: Follow-up with Dr. Camargo in 1 week. Call for appointment. Questions: Instructions for follow-up (appointment date and time): Follow-up with Dr. Camargo in 1 week. Call for appointment. To provider: DESTINEY CAMARGO Saad R., MD Specialty: Cardiology, Cardiovascular Disease, Internal Medicine, Interventional Cardiology [id number] [facility] [address] [facility] [address] Next Steps: Follow up Instructions: Follow-up with Dr. Valencia as scheduled on 01/08/2021. Questions: To provider: LANDON VALENCIA Instructions for follow-up (appointment date and time): Follow-up with Dr. Valencia as scheduled on 01/08/2021. Total time spent on discharge: 45 minutes. Nina Larsen MD Director of Family Medicine Inpatient Services Recreation Supervisor, [facility] Family Medicine Residency [facility] documented in this encounter Discharge Instructions * [...] ask them during your visits. ?? 2017 itzat Information is for End User's use only and may not be sold, redistributed or otherwise used for commercial purposes. All illustrations and images included in CareNotes?? are the copyrighted property of A.D.A.M., Inc. or [employer]. The above information is an forestry fire aid only. It is not intended as medical [...] was ALWAYS EXCELLENT! Please call IMU at [phone] if you have any questions regarding your care. Wishing you continued improvement during your recovery. Your Intermediate Care Unit Team * Attachments The following attachments cannot be sent through Care Everywhere. * Magnesium (By mouth) (Martiniquais) * Linaclotide (By mouth) (Martiniquais) * Bisacodyl (By mouth) (Martiniquais) * Amoxicillin (By mouth) (Martiniquais) * Alprazolam (By mouth) (Martiniquais) * Heart Healthy Diet (Discharge Care) (Martiniquais) * Heart Failure (Discharge Care) (Martiniquais) documented in this encounter Medications at Time [...] 5 doses 5 tablet/capsule 1 12/31/19 21 magnesium hydroxide (MILK OF MAGNESIA) [...] mg with dinner Po 1 12/07/19 23 levothyroxine (SYNTHROID) 75 mcg tablet Take 1 tablet (75 mcg total) by mouth muff winder before breakfast 30 tablet 1 03/04/20 24 [...] 1 tablet (75 mcg total) by mouth muff winder before breakfast 30 tablet 1 03/04/20 24 [...] for patient to go home with . [facility] is alreadyset up with RN/PT on d/c. No other anticipated needs at this time. CM will continue to follow. 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 1 12/22/20 12/28/20 -- Goal Details: Supine to/from sit with min assist Goal Start Date Expected End Date End Date PT [facility] 2 12/22/20 12/28/20 -- Goal Details: Sit to/from stand with cg assist Goal Start Date Expected End Date End Date PT [facility] 3 12/22/20 12/28/20 -- Goal Details: Bed to/from chair with cg assist Goal Start Date Expected End Date End Date PT [facility] 4 12/22/20 12/28/20 -- Goal Details: Ambulate 40' with wheeled walker with cg assist Goal Start Date Expected End Date End Date PT [facility] 5 12/22/20 12/28/20 -- Goal Details: HEP with LE's with cg assist x10 reps * Nina Larsen MD - 12/28/2020 10:46 AM CDT [facility] Hospitalist Service Progress Note Patient Name: Loc Anderson Patient : 1940 Age/Sex: 80 y.o. female Room/Bed: [id number] Admission Date/Time: 12/20/2020 3:09 PM Date: 12/28/2020 [...] Rate: 77 bpm RR Interval: 771 msec MD Interval: 192 msec QRS Duration: 112 msec QT Interval: 415 msec QTC Interval: 447 msec P-R-T Palouse: 46 - -28 - 55 degrees SINUS RHYTHM BORDERLINE LEFT AXIS DEVIATION [QRS AXIS < -20] MODERATE INTRAVENTRICULAR CONDUCTION DELAY [110+ ms QRS DURATION] BORDERLINE ECG No change from prior EKG Electronically Signed By: Landon Valencia MD ECG 12 lead Result Date: 12/21/2020 Narrative: Vent Rate: 81 bpm RR Interval: 736 msec MD Interval: 162 msec QRS Duration: 119 msec QT Interval: 326 msec QTC Interval: 363 msec P-R-T Palouse: -11 - -39 - 35 degrees Probable [...] Keyshawn Cummings M.D. LEIGH: LEIGH Report ID: [id number] Reading Location: [id number] XR Abdomen Ap 1 Vw Result Date: [...] signed by Keyshawn ABRAHAM: LEIGH Report ID: [id number] Reading Location: [id number] CT Abdomen Pelvis W Contrast Result Date: 12/20/2020 Narrative: EXAM DESCRIPTION: CT ABDOMEN PELVIS W CONTRAST REASON FOR STUDY: asthma, PNA, CAD, CHF, A-fib, HTN, HLD, and DM who presents to the ED via EMS and accompanied by her daughter c/o generalized weakness for approximately 3 days PSH cade hernia ike 100 ml optiray 20646 g r FA Duration: 3 days TECHNIQUE: [...] Deborah Garcia M.D. TS: SHANNON Report ID: [id number] Reading Location: [id number] XR Chest 1 Vw Portable Result Date: [...] HARDWARE/LINES/TUBES: None. BONES: No acute findings. OTHER: Pingree are seen of the leftlower chest similar to prior. IMPRESSION: 1. No acute findings or infiltrate. THIS IS AN ELECTRONICALLY VERIFIED FINAL REPORT 12/20/2020 4:42 PM - Electronically signed by Noah Cuba M.D. MJ: RENETTA Report ID: [id number] Reading Location:[id number] US Carotids Duplex Bilateral Result Date: 12/25/2020 [...] Electronically signed by Hilario Bolanos M.D. AG: SROAIDA Report ID: [id number] Reading Location: [place] [address] Microbiology: COVID-19 RNA negative. H pylori negative. [...] MD Director of Family Medicine Inpatient Services Recreation Supervisor, [facility] Family Medicine Residency [facility] 12/28/2020 10:46 AM * Phyllis Young, PT - 12/28/2020 8:45 AM CDT Physical Therapy 12/28/20 0800 PT Last Visit Subjective Comment Can we wait? I feel terrible right now. PT Missed Visit Reason Patient declined * Jessica Landrum PT - 12/27/2020 3:08 PM CDT Physical Therapy 12/27/20 1507 General Session Type Treatment PT Received On 12/27/20 PT Missed Visit Reason Unavailable;With other staff/receiving another service Rehab Only - Missed Reasons - All Disciplines Unavailable (Comment) Attempted PT treatment but patient out of room and not available at this time. Will check back tomorrow. Jessica Landrum PT, DPT * Noah Foley [facility] - 12/27/2020 2:13 PM CDT Ashlee Avila, lead pharmacy technician, counseled the patient for apixaban and [...] oral TID Willie Aly MD 500 mgat 12/27/2039 ??? anastrozole (ARIMIDEX) tablet 1 mg 1 mg oral Daily Neeta Patel MD 1 mg at 12/27/20838 ??? apixaban (ELIQUIS) tablet 5 mg 5 mg oral Q12H [facility] Neeta Patel MD 5 mg at 12/27/2038 ??? bisacodyL (DULCOLAX) suppository 10 mg 10 [...] oral Daily Neeta Patel MD 250 mcgat 12/27/2039 ??? dextrose gel in packet 15 g 15 g oral Q15 Min PRN Neeta Patel MD Or ??? dextrose (D10W) 10% bolus 250 mL 250 mL intravenous Q15 Min PRN Neeta Patel MD ??? docusate sodium (COLACE) capsule 100 mg 100 mg oral BID PRN Neeta Patel MD 100 mg at 12/27/20605 ??? dorzolamide (TRUSOPT) 2 % ophthalmic solution 1 drop 1 drop each eye BID Neeta Patel MD 1 drop at 12/26/202032 ??? flecainide (TAMBOCOR) tablet 50 mg 50 mg oral BID Neeta Patel MD 50 mg at 12/27/20 08 ??? furosemide (LASIX) tablet 40 mg 40 mg oral Daily Neeta Patel MD 40 mg at 12/27/20 08 ??? glucagon injection 1 mg 1 mg [...] meals Neeta Patel MD 1 Units at 12/26/201822 ??? levothyroxine (SYNTHROID) tablet 75 mcg 75 [...] 30 mL at 12/27/20 0838 ??? multivit vjbfbrmj-kaot-CZ-calcium (THERA-M) tablet 1 tablet 1 tablet oral [...] QID Neeta Patel MD 20 mEq at 12/27/20838 ??? rosuvastatin (CRESTOR) tablet 10 mg 10 [...] than three times a week ??? Attends Yazidism Services: Never ??? Active Member of Clubs [...] stable. Follow CBC trend. Jaylin Reynolds NP [facility] Office [phone] * Robles Kyleigh - 12/27/2020 8:51 AM CDT Nutrition Assessment [...] Constipation Evidenced by: Physical finding ?? Interventions: Gaylord diet preferences within the limits of nutrition [...] Weight Used for Estimated Kcals: Current ?? MS Total Energy Needs: 1624.92 kcal using Stress [...] Wound Nutrition Follow-Up : 01/01/21 Kyleigh Robles, RD LDN * Nina Larsen MD - 12/27/2020 8:38 AM CDT [facility] Hospitalist Service Progress Note Patient Name: Loc Anderson Patient : 1940 Age/Sex: 80 y.o. female Room/Bed: [id number] Admission Date/Time: 12/20/2020 3:09 PM Date: 12/27/2020 [...] Rate: 77 bpm RR Interval: 771 msec MD Interval: 192 msec QRS Duration: 112 msec QT Interval: 415 msec QTC Interval: 447 msec P-R-T Palouse: 46 - -28 - 55 degrees SINUS RHYTHM BORDERLINE LEFT AXIS DEVIATION [QRS AXIS < -20] MODERATE INTRAVENTRICULAR CONDUCTION DELAY [110+ ms QRS DURATION] BORDERLINE ECG No change from prior EKG Electronically Signed By: Landon Valencia MD ECG 12 lead Result Date: 12/21/2020 Narrative: Vent Rate: 81 bpm RR Interval: 736 msec MD Interval: 162 msec QRS Duration: 119 msec QT Interval: 326 msec QTC Interval: 363 msec P-R-T Palouse: -11 - -39 - 35 degrees Probable [...] Keyshawn Cummings M.D. LEIGH: LEIGH Report ID: [id number] Reading Location: [id number] XR Abdomen Ap 1 Vw Result Date: [...] Keyshawn Cummings M.D. LEIGH: LEIGH Report ID: [id number] Reading Location: [place] [address] CT Abdomen Pelvis W Contrast Result Date: 12/20/2020 Narrative: EXAM DESCRIPTION: CT ABDOMEN PELVIS W CONTRAST REASON FOR STUDY: asthma, PNA, CAD, CHF, A-fib, HTN, HLD, and DM who presents to the ED via EMS and accompanied by her daughter c/o generalized weakness for approximately 3 days PSH cade hernia ike 100 ml optiray 78772 g r FA Duration: 3 days TECHNIQUE: [...] Deborah Garcia M.D. TS: SHANNON Report ID: [id number] Reading Location: [id number] XR Chest 1 Vw Portable Result Date: [...] Noah Cuba M.D. MJ: RENETTA Report ID: [id number] Reading Location:[id number] US Carotids Duplex Bilateral Result Date: 12/25/2020 [...] Hilario Bolanos M.D. AG: SORAIDA Report ID: [id number] Reading Location: [id number] Microbiology: COVID-19 RNA negative. H pylori negative. [...] to follow. ?? Paroxysmal atrial fibrillation (CMS/HCC) ([facility]) Remains stable. Heart rate controlled. Will continue [...] MD Director of Family Medicine Inpatient Services Recreation Supervisor, [facility] Family Medicine Residency [facility] 12/27/2020 8:38 AM * Neeta Patel MD [...] magnesium citrate as well. Voice recognition software [employer] Guides Direct was used dictate and transcribe this document. Regrinder Operator variances may occur. Despite proofreading, typographical errors may occur. Neeta Patel MD * Jaylin Reynolds NP - 12/26/2020 11:20 AM CDT Progress Note [...] KATHARINE Neeta Patel MD 5 mg at 12/26/20957 [...] 8 Units 8 Units subcutaneous QAM Neeta Ptael MD 8 Units at 12/26/20 1001 ??? [...] - 0600 Neeta Patel MD 75 mcgat 12/26/20606 ??? linaCLOtide (LINZESS) capsule 290 mcg 290 mcg oral Before breakfast Neeta Patel MD 290mcg at 12/26/20 06 ??? magnesium hydroxide (MILK OF MAGNESIA) 80 mg/mL (33.3 mg/mL as elemental magnesium) oral suspension 30 mL 30 mL oral Daily Neeta Patel MD 30 mL at 12/26/20956 ??? multivit zswybeni-lxef-GS-calcium (THERA-M) tablet 1 tablet 1 tablet oral [...] Wayne Snow MD 1 tablet at 12/26/20 06 ??? sodium chloride 0.9% flush 0.5-20 mL 0.5-20 mL intra-catheter PRN Neeta Patel MD ??? sodium chloride 0.9% flush 0.5-20 mL 0.5-20 mL intra-catheter Q12H Wayne Snow MD 10 mLat 12/26/20 1002 ??? spironolactone (ALDACTONE) tablet 25 mg 25 mg oral Daily Neeta Patel MD 25 mg at 12/26/20956 ??? verapamil SR (CALAN SR) extended release [...] than three times a week ??? Attends Yazidism Services: Never ??? Active Member of Clubs [...] perspective. Follow-up with PCP. Jaylin Reynolds NP [facility] [phone] * Melody Joseph, WEIGHT LOSS CONSULTANT - 12/26/2020 9:20 AM CDT Physical Therapy [...] Larsen MD - 12/26/2020 8:33 AM CDT [facility] Hospitalist Service Progress Note Patient Name: Loc Anderson Patient : 1940 Age/Sex: 80 y.o. female Room/Bed: [place] [id number] Admission Date/Time: 12/20/2020 3:09 PM Date: 12/26/2020 [...] Rate: 77 bpm RR Interval: 771 msec MD Interval: 192 msec QRS Duration: 112 msec QT Interval: 415 msec QTC Interval: 447 msec P-R-T Palouse: 46 - -28 - 55 degrees SINUS RHYTHM BORDERLINE LEFT AXIS DEVIATION [QRS AXIS < -20] MODERATE INTRAVENTRICULAR CONDUCTION DELAY [110+ ms QRS DURATION] BORDERLINE ECG No change from prior EKG Electronically Signed By: Landon Valencia MD ECG 12 lead Result Date: 12/21/2020 Narrative: Vent Rate: 81 bpm RR Interval: 736 msec MD Interval: 162 msec QRS Duration: 119 msec QT Interval: 326 msec QTC Interval: 363 msec P-R-T Palouse: -11 - -39 - 35 degrees Probable [...] Rate: 83 bpm RR Interval: 719 msec MD Interval: 206 msec QRS Duration: 134 msec QT Interval: 405 msec QTC Interval: 445 msec P-R-T Pal[place]: 72 - -54 - 59 degrees SINUS [...] Keyshawn Cummings M.D. LEIGH: LEIGH Report ID: [id number] Reading Location: [id number] XR Abdomen Ap 1 Vw Result Date: [...] Keyshawn Cummings M.D. LEIGH: LEIGH Report ID: [id number] Reading Location: [id number] CT Abdomen Pelvis W Contrast Result Date: 12/20/2020 Narrative: EXAM DESCRIPTION: CT ABDOMEN PELVIS W CONTRAST REASON FOR STUDY: asthma, PNA, CAD, CHF, A-fib, HTN, HLD, and DM who presents to the ED via EMS and accompanied by her daughter c/o generalized weakness for approximately 3 days PSH cade hernia ike 100 ml optiray 97773 g r FA Duration: 3 days TECHNIQUE: [...] Deborah Garcia M.D. TS: SHANNON Report ID: [id number] Reading Location: [id number] CT Abdomen Pelvis W Contrast Result Date: [...] Femi Fermin M.D. AR: SPARKLE Report ID: [id number] Reading Location: [id number] XR Chest 1 Vw Portable Result Date: [...] Noah Cuba M.D. MJ: RENETTA Report ID: [id number] Reading Location:[id number] US Carotids Duplex Bilateral Result Date: 12/25/2020 [...] Hilario Bolanos M.D. AG: SORAIDA Report ID: [id number] Reading Location: [id number] CT Chest PE (CTA) W Contrast Result [...] Vivek Stout M.D. BB: DEDRA Report ID: [id number] Reading Location: [id number] Microbiology: COVID-19 RNA negative. H pylori negative. [...] MD Director of Family Medicine Inpatient Services Recreation Supervisor, [facility] Family Medicine Residency [facility] 12/26/2020 8:33 AM * Neeta Patel MD [...] and follow her response Voice recognition software [email or web address] Fluency Direct was used dictate and transcribe this document. Regrinder Operator variances may occur. Despite proofreading, typographical errors [...] tongue midline, mucosa moist Lungs CTA Heart: [id number], no significant murmur or gallop Abd: +BS, [...] Rate: 77 bpm RR Interval: 771 msec MD Interval: 192 msec QRS Duration: 112 msec QT Interval: 415 msec QTC Interval: 447 msec P-R-T Pal[place]: 46 - -28 - 55 degrees SINUS RHYTHM BORDERLINE LEFT AXIS DEVIATION [QRS AXIS < -20] MODERATE INTRAVENTRICULAR CONDUCTION DELAY [110+ ms QRS DURATION] BORDERLINE ECG No change from prior EKG Electronically Signed By: Landon Valencia MD ECG 12 lead Result Date: 12/21/2020 Narrative: Vent Rate: 81 bpm RR Interval: 736 msec MD Interval: 162 msec QRS Duration: 119 msec QT Interval: 326 msec QTC Interval: 363 msec P-R-T Pal[place]: -11 - -39 - 35 degrees Probable [...] Rate: 83 bpm RR Interval: 719 msec MD Interval: 206 msec QRS Duration: 134 msec QT Interval: 405 msec QTC Interval: 445 msec P-R-T [place]: 72 - -54 - 59 degrees SINUS [...] PSH cade hernia ike 100 ml optiray 61261 g r FA Duration: 3 days TECHNIQUE: [...] Deborah Garcia M.D. TS: SHANNON Report ID: [id number] Reading Location: [id number] CT Abdomen Pelvis W Contrast Result Date: [...] Femi Fermin M.D. AR: SPARKLE Report ID: [id number] Reading Location: [id number] XR Chest 1 Vw Portable Result Date: [...] Noah Cuba M.D. MJ: RENETTA Report ID: [id number] Reading Location:[id number] CT Chest PE (CTA) W Contrast Result [...] Vivek Stout M.D. BB: DEDRA Report ID: [id number] Reading Location: [id number] Current Facility-Administered Medications Medication Dose Route Frequency [...] Daily Neeta Patel MD 1 mg at 12/25/20 0932 ??? apixaban (ELIQUIS) tablet 5 mg 5 mg oral Q12H KATHARINE Neeta Patel MD 5 mg at 12/25/20 0932 ??? bisacodyL (DULCOLAX) suppository 10 mg 10 [...] BID Neeta Patel MD 50 mg at 12/25/20 0932 ??? furosemide (LASIX) tablet 40 mg 40 mg oral Daily Neeta Patel MD 40 mg at 12/25/20930 ??? glucagon injection 1 mg 1 mg intramuscular Q30 Min PRN Neeta Patel MD ??? insulin glargine (LANTUS, BASAGLAR, SEMGLEE) 100 unit/mL (3 mL) pen injection 8 Units 8 Units subcutaneous QAM Neeta Patel MD 8 Units at 12/25/2033 ??? insulin lispro (HumaLOG, ADMELOG) 100 unit/mL pen injection 1-3 Units 1-3 Units subcutaneous Nightly KarNeeta mederos MD ??? insulin lispro (HumaLOG, ADMELOG) 100 [...] 72 mcg at 12/25/20 0634 ??? multivit hxlqbyel-sphl-CZ-calcium (THERA-M) tablet 1 tablet 1 tablet oral [...] Nightly Neeta Patel MD 10 mg at 12/24/20 2158 ??? senna-docusate (PERICOLACE) 8.6-50 mg per tablet 1 tablet 1 tablet oral BID PRN Wayne Snow MD ??? sodium chloride 0.9% flush 0.5-20 mL 0.5-20 mL intra-catheter PRN Neeta Patel MD ??? sodium chloride 0.9% flush 0.5-20 mL 0.5-20 mL intra-catheter Q12H Wayne Snow MD ??? spironolactone (ALDACTONE) tablet 25 mg 25 mg oral Daily Neeta Patel MD 25 mg at 12/25/20 0932 ??? verapamil SR (CALAN SR) extended release tablet 120 mg 120 mg oral Nightly Neeta Patel MD 120 mg at 12/24/20 9837 A/P: 1. NC anemia-improving -LETA, and neg [...] No resolved hospital problems. Voice recognition software [employer]um[employer] Fluency Direct was used dictate and transcribe this document. Regrinder Operator variances may occur. Despite proofreading, typographical errors may occur. 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 No * Ian Martínez [facility] - 12/25/2020 10:03 AM CDT Vancomycin discontinued 12/25/20 10:[address]De Hauser. Vanco levels have been discontinued. Pharmacy monitoring is complete. Thank you, Ian Martínez [facility] department [phone] * Melody Joseph, WEIGHT LOSS CONSULTANT - 12/25/2020 9:25 AM CDT Physical Therapy [...] with 24 hour supervision * Dianna Goldstein [facility] - 12/25/2020 8:15 AM CDT Vancomycin order [...] to monitor daily. Thank you, Dianna Goldstein [facility] department [phone] * Wayne Snow MD - 12/24/2020 1:18 [...] tongue midline, mucosa moist Lungs CTA Heart: [id number], no significant murmur or gallop Abd: +BS, [...] Rate: 77 bpm RR Interval: 771 msec MD Interval: 192 msec QRS Duration: 112 msec QT Interval: 415 msec QTC Interval: 447 msec P-R-T Pal[place]: 46 - -28 - 55 degrees SINUS RHYTHM BORDERLINE LEFT AXIS DEVIATION [QRS AXIS < -20] MODERATE INTRAVENTRICULAR CONDUCTION DELAY [110+ ms QRS DURATION] BORDERLINE ECG No change from prior EKG Electronically Signed By: Landon Valencia MD ECG 12 lead Result Date: 12/21/2020 Narrative: Vent Rate: 81 bpm RR Interval: 736 msec MD Interval: 162 msec QRS Duration: 119 msec QT Interval: 326 msec QTC Interval: 363 msec P-R-T [place]: -11 - -39 - 35 degrees Probable [...] Rate: 83 bpm RR Interval: 719 msec MD Interval: 206 msec QRS Duration: 134 msec QT Interval: 405 msec QTC Interval: 445 msec P-R-T [place]: 72 - -54 - 59 degrees SINUS [...] PSH cade hernia ike 100 ml optiray 51562 g r FA Duration: 3 days TECHNIQUE: [...] Deborah Garcia M.D. TS: SHANNON Report ID: [id number] Reading Location: [id number] CT Abdomen Pelvis W Contrast Result Date: [...] Femi Fermin M.D. AR: SPARKLE Report ID: [id number] Reading Location: [id number] XR Chest 1 Vw Portable Result Date: [...] Noah Cuba M.D. MJ: RENETTA Report ID: [id number] Reading Location:[id number] CT Chest PE (CTA) W Contrast Result [...] Vivek Stout M.D. BB: DEDRA Report ID: [id number] Reading Location: [id number] Current Facility-Administered Medications Medication Dose Route Frequency [...] Nightly Neeta Patel MD 50 mg at 12/23/20 2057 ??? anastrozole (ARIMIDEX) tablet 1 mg 1 mg oral Daily Neeta Patel MD 1 mg at 12/24/20929 ??? apixaban (ELIQUIS) tablet 5 mg 5 mg oral Q12H [facility] Neeta Patel MD 5 mg at 12/24/20929 ??? [Held by Provider] aspirin chewable tablet [...] 100 mL IVPB 1,000 mg intravenous Q12H [facility] Neeta Patel MD 200 mL/hr at 12/24/2031 1,000 mg at 12/24/20930 ??? cholecalciferol (VITAMIN [...] oral Once Wayne Snow MD ??? multivit prypgtez-dfgi-MP-calcium (THERA-M) tablet 1 tablet 1 tablet oral [...] flush 0.5-20 mL 0.5-20 mL intra-catheter Q8H Neeta Kearney MD 10 mL at 12/24/20930 ??? sodium chloride 0.9% flush 0.5-20 mL 0.5-20 mL intra-catheter PRN Neeta Patel MD ??? spironolactone (ALDACTONE) tablet 25 mg 25 mg oral Daily Neeta Patel MD 25 mg at 12/24/20929 ??? vancomycin 1250 mg/250 mL in sodium chloride 0.9% (premix) 1,250 mg 15 mg/kg intravenous Q24H Wayne Angel MD 1,250 mg at 12/24/20929 ??? verapamil SR (CALAN SR) extended release [...] No resolved hospital problems. Voice recognition software [employer] Guides Direct was used dictate and transcribe this document. Regrinder Operator variances may occur. Despite proofreading, typographical errors may occur. Wayne Snow MD 12/24/2020 1:18 PM * Ian Martínez, [facility] - 12/24/2020 8:11 AM CDT Loc Anderson [...] PLATELETS K/cumm 273 Thank you, Ian Martínez [facility] department [phone] * Wayne Snow MD - 12/23/2020 2:26 [...] tongue midline, mucosa moist Lungs CTA Heart: [id number], no significant murmur or gallop Abd: +BS, [...] Rate: 77 bpm RR Interval: 771 msec MD Interval: 192 msec QRS Duration: 112 msec QT Interval: 415 msec QTC Interval: 447 msec P-R-T Palouse: 46 - -28 - 55 degrees SINUS RHYTHM BORDERLINE LEFT AXIS DEVIATION [QRS AXIS < -20] MODERATE INTRAVENTRICULAR CONDUCTION DELAY [110+ ms QRS DURATION] BORDERLINE ECG No change from prior EKG Electronically Signed By: Landon Valencia MD ECG 12 lead Result Date: 12/21/2020 Narrative: Vent Rate: 81 bpm RR Interval: 736 msec MD Interval: 162 msec QRS Duration: 119 msec QT Interval: 326 msec QTC Interval: 363 msec P-R-T Palouse: -11 - -39 - 35 degrees Probable [...] Rate: 83 bpm RR Interval: 719 msec MD Interval: 206 msec QRS Duration: 134 msec QT Interval: 405 msec QTC Interval: 445 msec P-R-T [place]: 72 - -54 - 59 degrees SINUS RHYTHM INTRAVENTRICULAR CONDUCTION DELAY [130+ ms QRS DURATION] ABNORMAL ECG No change from prior EKG Electronically Signed By: Landon aVlencia MD CT Abdomen Pelvis W Contrast Result Date: 12/20/2020 Narrative: EXAM DESCRIPTION: CT ABDOMEN PELVIS W CONTRAST REASON FOR STUDY: asthma, PNA, CAD, CHF, A-fib, HTN, HLD, and DM who presents to the ED via EMS and accompanied by her daughter c/o generalized weakness for approximately 3 days PSH cade hernia ike 100 ml optiray 00663 g r FA Duration: 3 days TECHNIQUE: [...] Deborah Garcia M.D. TS: TS Report ID: [id number] Reading Location: [id number] CT Abdomen Pelvis W Contrast Result Date: [...] Femi Fermin M.D. AR: SPARKLE Report ID: [id number] ReadingLocation: [id number] XR Chest 1 Vw Portable Result Date: 12/20/2020 Narrative: EXAM DESCRIPTION: XR CHEST 1 VIEW REASON FOR STUDY: Generalized weakness over the past 3 days. Leg swelling. Nonsmoker with a h/o sleep [...] HARDWARE/LINES/TUBES: None. BONES: No acute findings. OTHER: Jonaie are seen of the left lower chest similar to prior. IMPRESSION: 1. No acute findings or infiltrate. THIS IS AN ELECTRONICALLY VERIFIED FINAL REPORT 12/20/2020 4:42 PM - Electronically signed by Noah Cuba M.D. MJ: RENETTA Report ID: [id number] Reading Location: [id number] CT Chest PE (CTA) W Contrast Result [...] Vivek Stout M.D. BB: DEDRA Report ID: [id number] Reading Location: [place] [address] Current Facility-Administered Medications Medication Dose Route Frequency [...] tablet 5 mg 5 mg oral Q12H [facility] Neeta Patel MD 5 mg at 12/23/20 0901 [Held [...] Neeta Kearney MD 200 mL/hr at 12/23/20 09 1,000 mg at 12/23/20 09 cholecalciferol (VITAMIN D-3) tablet 1,000 Units 1,000 Units oral Daily Neeta Patel MD 1,000 Units at 12/23/20 09 cyanocobalamin (Vitamin B-12) tablet 250 mcg 250 mcg oral Daily Neeta Patel MD 250 mcg at 12/23/20901 dextrose gel in packet 15 g 15 [...] Neeta Patel MD 1 drop at 12/23/20 09 flecainide (TAMBOCOR) tablet 50 mg 50 mg oral BID Neeta Patel MD 50 mg at 12/23/20 09 furosemide (LASIX) tablet 40 mg 40 mg oral Daily Neeta Patel MD 40 mg at 12/23/20902 glucagon injection 1 mg 1 mg intramuscular [...] Patel MD 72 mcg at12/23/20 0900 multivit imbwksfy-wkbb-FY-calcium (THERA-M) tablet 1 tablet 1 tablet oral [...] Nightly Neeta Patel MD 10 mg at 12/22/20 2113 senna-docusate (PERICOLACE) 8.6-50 mg per tablet 1 [...] No resolved hospital problems. Voice recognition software Xlumena Fluency Direct was used dictate and transcribe this document. Regrinder Operator variances may occur. Despite proofreading, typographical errors may occur. Wayne Snow MD 12/23/2020 2:26 PM * Bob Weber, OT - 12/22/2020 4:02 PM CDT Occupational [...] Neeta Patel MD 50 mg at 12/21/20 205 ??? anastrozole (ARIMIDEX) tablet 1 mg 1 mg oral Daily Neeta Patel MD 1 mg at 12/22/20 1251 ??? [START ON 12/23/2020] apixaban (ELIQUIS) tablet 5 mg 5 mg oral Q12H [facility] Neeta Patel MD ??? [Held by Provider] [...] 72 mcg at 12/22/20 1258 ??? multivit wfwbiamu-enuk-XU-calcium (THERA-M) tablet 1 tablet 1 tablet oral [...] -- -- 0.68 -- 0.67 -- 0.84 [id number] mL/min/1.73 m2 -- -- 81 -- 82 [...] Atrial fibrillation 1st diagnosed in 2015 in [place]. Now back on [facility]. OAC temporarily stopped because of large [...] BILATERAL SALPINGOOPHORECTOMY 1981 Hysterectomy, total abdominal, BSO SUBJECTIVE LIVES WITH: [...] (from Physical Therapy) Active Problems Problem: PT [facility] Start Date: 12/22/20 Goal Start Date Expected End Date End Date PT [facility] 1 12/22/20 12/29/20 -- Goal Details: Supine to/from sit with min assist Goal Start Date Expected End Date End Date PT [facility] 2 12/22/20 12/29/20 -- Goal Details: Sit to/from stand with cg assist Goal Start Date Expected End Date End Date PT [facility] - Mis 3 12/22/20 12/29/20 -- Goal Details: Bed to/from chair with cg assist Goal Start Date Expected End Date End Date [facility] 4 12/22/20 12/29/20 -- Goal Details: Ambulate 40' with wheeled walker with cg assist Goal Start Date Expected End Date End Date [facility] 5 12/22/20 12/29/20 -- Goal Details: HEP [...] tongue midline, mucosa moist Lungs CTA Heart: [id number], no significant murmur or gallop Abd: +BS, [...] Rate: 77 bpm RR Interval: 771 msec MD Interval: 192 msec QRS Duration: 112 msec QT Interval: 415 msec QTC Interval: 447 msec P-R-T Pal[place]: 46 - -28 - 55 degrees SINUS RHYTHM BORDERLINE LEFT AXIS DEVIATION [QRS AXIS < -20] MODERATE INTRAVENTRICULAR CONDUCTION DELAY [110+ ms QRS DURATION] BORDERLINE ECG No change from prior EKG Electronically Signed By: Landon Valencia MD ECG 12 lead Result Date: 12/21/2020 Narrative: Vent Rate: 81 bpm RR Interval: 736 msec MD Interval: 162 msec QRS Duration: 119 msec QT Interval: 326 msec QTC Interval: 363 msec P-R-T Pal[place]: -11 - -39 - 35 degrees Probable [...] Rate: 83 bpm RR Interval: 719 msec MD Interval: 206 msec QRS Duration: 134 msec QT Interval: 405 msec QTC Interval: 445 msec P-R-T [place]: 72 - -54 - 59 degrees SINUS [...] PSH cade hernia ike 100 ml optiray 10435 g r FA Duration: 3 days TECHNIQUE: [...] Deborah Garcia M.D. TS: SHANNON Report ID: [id number] Reading Location: [id number] CT Abdomen Pelvis W Contrast Result Date: [...] Femi Fermin M.D. AR: SPARKLE Report ID: [id number] Reading Location: [id number] XR Chest 1 Vw Portable Result Date: [...] Noah Cuba M.D. MJ: RENETTA Report ID: [id number] Reading Location:[id number] CT Chest PE (CTA) W Contrast Result [...] 11/27/2020 12:46 AM - Electronically signed by Vivke Stout M.D. BB: DEDRA Report ID: [id number] Reading Location: [place] [address] Current Facility-Administered Medications Medication Dose Route Frequency [...] 72 mcg at 12/22/20 1258 ??? multivit hvolntil-xtke-QQ-calcium (THERA-M) tablet 1 tablet 1 tablet oral [...] 0.5-20 mL 0.5-20 mL intra-catheter Q8H [facility] eNeta Patel MD 10 mL at 12/22/20 1255 [...] No resolved hospital problems. Voice recognition software [employer] Guides Direct was used dictate and transcribe this document. Regrinder Operator variances may occur. Despite proofreading, typographical errors [...] 12/21/2020 2:59 PM CDT Physical Therapy 12/21/20 6038 General Session Type Evaluation Rehab Only - Missed Reasons - All Disciplines Patient request;Patient ill (Comment);Patient unwilling to participate Attempted PT evaluation at 1455. Patient c/o dizziness and feeling weak/faint. Patient and her refusing out of bed activity at this time. Will check back tomorrow. Jessica Smith, PT, DPT * Maya Marquez OT - 12/21/2020 11:04 AM CDT Occupational Therapy Initial Evaluation Past Medical History: Diagnosis Date ??? A-fib (CMS/HCC) ([facility]) ??? Anemia Anemia ??? Asthma Asthma ??? Atrial fibrillation (CMS/HCC) ([facility]) ??? Chronic coronary artery disease Coronary artery disease ??? Diabetes mellitus (HCC) ??? 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 Glaucoma Glaucoma ??? Glaucoma ??? Herpes [...] Occupational Therapy-Patient Goal To return home with 24/7 supervision Precautions Precautions Fall risk;Hearing Home Living Type of Home House Home Layout One level Home Access Ramped entrance Bathroom Shower/Tub Tub/shower unit Bathroom Toilet Raised Bathroom Equipment Commode;Grab bars around toilet Home Mobility Equipment Wheeled walker;4-Wheeled walker;Wheelchair-manual Additional Comments Spongebathing Prior Function Level of Casey Needs assistance with ADLs;Needs assistance with functional transfers;Needs assistance with ambulation;Dependent with homemaking with ambulation Lives With Spouse Receives Help From Spouse/Significant other;Family;blending line attendant Prior Function Comments Assist 2x per [...] mcg tablet Take 50 mcg by mouth muff winder before breakfast Unknown at Unknown time ??? [...] Temporal Heart Rate Source -- Patient Position 12/20/203 Lying BP Location 12/20/20 194 Right arm FiO2 (%) -- 24hr Min/Max: [...] Range Crossmatch Compatible Unit number for crossmatch [id number] Prepare RBC: 1 Units Collection Time: 12/20/20 6:23 PM Result Value Ref Range Units requested 1 Units requested Ready Unit Number [id number] Product code [id number] Blood Expiration Date [id number] Product Blood Type (for scanning) 5100 Product [...] AM Result Value Ref Range Unit Number [id number] Product code [id number] Blood Expiration Date 507040668424 Product Blood Type (for scanning) 5100 Product Blood Type OPOS Dispense Status DISPENSED POCT glucose Collection Time: 12/21/20 2:34 AM Result Value Ref Range Glucose, POC 143 (H) 71 - 98 mg/dL Prepare plasma Collection Time: 12/21/20 6:42 AM Result Value Ref Range Unit Number [id number] Product code [id number] Blood Expiration Date 854008346697 Product Blood Type (for scanning) 5100 Product [...] Rate: 77 bpm RR Interval: 771 msec MD Interval: 192 msec QRS Duration: 112 msec QT Interval: 415 msec QTC Interval: 447 msec P-R-T Palouse: 46 - -28 - 55 degrees SINUS RHYTHM BORDERLINE LEFT AXIS DEVIATION [QRS AXIS < -20] MODERATE INTRAVENTRICULAR CONDUCTION DELAY [110+ ms QRS DURATION] BORDERLINE ECG No change from prior EKG Electronically Signed By: Landon Valencia MD ECG 12 lead Result Date: 12/21/2020 Narrative: Vent Rate: 81 bpm RR Interval: 736 msec MD Interval: 162 msec QRS Duration: 119 msec QT Interval: 326 msec QTC Interval: 363 msec P-R-T [place]: -11 - -39 - 35 degrees Probable [...] Rate: 83 bpm RR Interval: 719 msec MD Interval: 206 msec QRS Duration: 134 msec QT Interval: 405 msec QTC Interval: 445 msec P-R-T [place]: 72 - -54 - 59 degrees SINUS [...] PSH cade hernia ike 100 ml optiray 70590 g r FA Duration: 3 days TECHNIQUE: [...] Deborah Garcia M.D. TS: SHANNON Report ID: [id number] Reading Location: [id number] CT Abdomen Pelvis W Contrast Result Date: [...] Femi Fermin M.D. AR: SPARKLE Report ID: [id number] Reading Location: [id number] XR Chest 1 Vw Portable Result Date: [...] Noah Cuba M.D. MJ: RENETTA Report ID: [id number] Reading Location: [id number] CT Chest PE (CTA) W Contrast Result [...] Vivek Stout M.D. BB: DEDRA Report ID: [id number] Reading Location: [place] [address] Current Facility-Administered Medications Medication Dose Route Frequency [...] 40 mg 40 mg oral Daily Wayne Snwo MD ??? potassium chloride ER (KLOR-CON) extended [...] length of stay to be >2 mid MDM High Principal Problem: Normocytic anemia Active Problems: Hypokalemia Urinary tract bacterial infections Paroxysmal atrial fibrillation (CMS/HCC) (HCC) History of pulmonary embolism Type 2 diabetes mellitus (HCC) Chronic diastolic (congestive) heart failure (HCC) Anxiety CAD (coronary artery disease) HTN (hypertension) Resolved Problems: No resolved hospital problems. Voice recognition software [employer] Guides Direct was used dictate and transcribe this document. Regrinder Operator variances may occur. Despite proofreading, typographical errors may occur. Wayne Snow MD Date of Service: 12/21/2020 documented in this encounter Procedure Notes * Neeta Patel MD - 12/27/2020 3:31 PM CDTAssociated Order(s): FLEXIBLE SIGMOIDOSCOPY [facility] Patient Name: Loc Anderson Procedure Date: 12/27/2020 3:31 PM Date of : 1940 Admit Type: Inpatient Age: 80 Gender: Female Attending MD: Neeta Patel M.D. Room: [facility] 1 Note Status: Finalized Patient [...] informed consent was obtained. The Endoscope [id number] was introduced through the anus and advanced [...] 3:31 PM Procedure Code(s): --- Professional --- 30230, Sigmoidoscopy, flexible; diagnostic, including collection of specimen(s) by brushing or washing, when performed (separate procedure) Diagnosis Code(s): --- Professional --- R19.5, Other fecal abnormalities K59.00, Constipation, unspecified K56.41, Fecal impaction CPT copyright 2019 [employer]. All rights reserved. The codes documented in this report are preliminary and upon accounts receivable processor review may be revised to meet current compliance requirements. Recognized by the [employer] for promoting quality in endoscopy * Neeta Patel MD - 12/22/2020 11:16 AM CDTAssociated Order(s): EGD [facility] Patient Name: Loc Anderson Procedure Date: 12/22/2020 11:16 AM Date of : 1940 Admit Type: Inpatient Age: 80 Gender: Female Attending MD: Neeta Patel M.D. Room: [facility] 1 Note Status: Finalized Patient [...] passed under direct vision. The Endoscope [id number] was introduced through the mouth, and advanced [...] 11:16 AM Procedure Code(s): --- Professional --- 68052, Esophagogastroduodenoscopy, flexible, transoral; with biopsy, single or multiple Diagnosis Code(s): --- Professional --- K31.89, Other diseases of stomach and duodenum K31.7, Polyp of stomach and duodenum K22.8, Other specified diseases of esophagus D50.9, Iron deficiency anemia, unspecified R19.5, Other fecal abnormalities CPT copyright 2019 [employer]. All rights reserved. The codes documented in this report are preliminary and upon accounts receivable processor review may be revised to meet current compliance requirements. Recognized by the [employer] for promoting quality [...] BILATERAL SALPINGOOPHORECTOMY 1981 Hysterectomy, total abdominal, BSO Social History Social [...] Gatherings with Friends and Family: ??? Attends Yazidism Services: ??? Active Member of Clubs or [...] Nightly, Neeta Patel MD, 50 mg at 12/24/20 2158 ??? amoxicillin (AMOXIL) tablet/capsule 500 mg, 500 mg, oral, TID, Willie Aly MD ??? anastrozole (ARIMIDEX) tablet 1 mg, 1 mg, oral, Daily, Neeta Patel MD, 1 mg at 12/25/20 0932 ??? apixaban (ELIQUIS) tablet 5 mg, 5 mg, oral, Q12H KATHARINE, Neeta Patel MD, 5 mg at ??? bisacodyL (DULCOLAX) suppository 10 mg, 10 mg, rectal, Daily PRN, Wayne Snow MD ??? bromfenac 0.07 % drops 1 drop, 1 drop, ophthalmic, BID, Neeta Patel MD, 1 drop at 12/25/20938 ??? canagliflozin (INVOKANA) tablet 100 mg, 100 mg, oral, Before breakfast, Neeta Patel MD, 100 mg at 12/25/20633 ??? cefepime (MAXIPIME) 1,000 mg in sodium chloride 0.9% 100 mL IVPB, 1,000 mg, intravenous, Q12H KATHARINE, Neeta Patel MD, Last Rate: 200 mL/hr [...] BID, Neeta Patel MD, 1 drop at 12/25/20938 ??? flecainide (TAMBOCOR) tablet 50 mg, 50 mg, oral, BID, Neeta Patel MD, 50 mg at 12/25/20931 ??? furosemide (LASIX) tablet 40 mg, 40 [...] 72 mcg at 12/25/20 0634 ??? multivit uqgwjhxj-hwml-AZ-calcium (THERA-M) tablet 1 tablet, 1 tablet, oral, Daily, Neeta Patel MD, 1 tablet at 12/25/20 0932 ??? oxyCODONE (ROXICODONE) tablet 5 mg, 5 mg, oral, Q4H PRN, Neeta Patel MD, 5 mg at 12/24/20 2200 ??? pantoprazole DR (PROTONIX) extended release tablet 40 mg, 40 mg, oral, Daily, Neeta Patel MD, 40 mg at 12/25/20 0931 ??? potassium chloride ER (KLOR-CON) extended release tablet 20 mEq, 20 mEq, oral, QID, Neeta Patel MD, 20 mEq at 12/25/20 0931 ??? rosuvastatin (CRESTOR) tablet 10 mg, 10 mg, oral, Nightly, Neeta Patel MD, 10 mg at 12/24/202157 ??? senna-docusate (PERICOLACE) 8.6-50 mg per tablet 1 tablet, 1 tablet, oral, BID PRN, Wayne Snow MD ??? sodium chloride 0.9% flush 0.5-20 mL, 0.5-20 mL, intra-catheter, Q8H KATHARINE, Neeta Patel MD, 10 mL at 12/25/2033 ??? sodium chloride 0.9% flush 0.5-20 mL, 0.5-20 mL, intra-catheter, PRN, Neeta Patel MD ??? spironolactone (ALDACTONE) tablet 25 mg, 25 mg, oral, Daily, Neeta Patel MD, 25 mg at 12/25/2032 ??? verapamil SR (CALAN SR) extended release [...] Thanks for this consultation. Willie Aly MD [facility] [phone] Record created with voice recognition software. Occasional wrong-word or 'mhily-[id number]' substitutions may have occurred due to the [...] work-up. Patient had hospitalization in September at [facility] for large saddle PE. Patient underwent suction [...] -- 77 19 94 % -- -- 12/20/20 1948 119/45 36.7 ??C (98.1 ??F) -- 78 [...] Gatherings with Friends and Family: ??? Attends Yazidism Services: ??? Active Member of Clubs or [...] mcg tablet Take 25 mcg by mouth muff winder before breakfast 12/21/20 Desiree Walker MD metOLazone [...] CREATININE mg/dL -- -- 0.67 -- 0.84 [id number] mL/min/1.73 m2 -- -- 82 -- 65 [...] Duration 147 ms QRS-Interval (MSEC) 126 ms MD-Interval (MSEC) 197 ms QT Interval 427 ms QTc 456 ms QTC Interval ms P [place] 70 deg QRS Pal[place] -25 deg T Palouse 44 deg Radiology Testing: CT Angio Chest [...] CHANGES NOTED NUCLEAR IMAGES PENDING 30 Day Director E Learning: 03/22/2016 IMPRESSION: THUS, THIS IS A BENIGN [...] Atrial fibrillation 1st diagnosed in 2016 in [place]. Now back on [facility]. OAC temporarily stopped because of large [...] Camargo MD Schprechman, Jared, MD * Loreta Randhawa NP - 12/21/2020 3:18 PM CDTAssociated Order(s): IP [...] HTN, HL, GERD, A-Fib, pulmonary embolism on is who presented to the ED on 12/20/2020 [...] mcg tablet Take 50 mcg by mouth muff winder before breakfast Unknown at Unknown time ??? [...] tablet 5 mg 5 mg oral Q12H Wayne Angel MD 5 mg at 12/21/20 1409 ??? [...] 100 mL IVPB 1,000 mg intravenous Q12H [facility] Wayne Snow MD ??? cholecalciferol (VITAMIN D-3) tablet 1,000 Units 1,000 Units oral Daily aWyne Snow MD 1,000 Units at 12/21/20 1409 [...] Before breakfast Julio Mccabe MD ??? multivit rrlzduem-okpz-UC-calcium (THERA-M) tablet 1 tablet 1 tablet oral [...] 10 mg 10 mg oral Nightly Wayne nSow MD 10 mg at 409 ??? sodium [...] Gatherings with Friends and Family: ??? Attends Yazidism Services: ??? Active Member of Clubs or [...] and EGD. Loreta Randhawa, [facility] There may be grammatical errors in this note due to use of voice recognition software. Cosigned by Jann Pak MD at 12/21/2020 4:11 PM CDT * Neeta Patel MD - 12/21/2020 12:47 PM CDT Gastroenterology Consult Reason for consult: probable occult gi bleeding, decubiti, recent massive PE at [facility] August, in September large buttock bleed, Date of [...] for a long time. He have seen tile finisher at [facility] before. She did have colonoscopy in 2019 and the report was reviewed. Two small mucosal polyps were removed. CT of the pelvis yesterday in the ER showed diffuse constipation. Patient has issues with irregular bowel movement for a long time and the as noted above she manages with her tile finisher at [facility]. There is no history of weight [...] 1997 Cholecystectomy ??? HERNIA REPAIR ??? HYSTERECTOMY 1985 Hysterectomy ??? OTHER SURGICAL HISTORY Ulcer removal [...] mcg tablet Take 50 mcg by mouth muff winder before breakfast Unknown at Unknown time ??? [...] Range Crossmatch Compatible Unit number for crossmatch [id number] Prepare RBC: 1 Units Collection Time: 12/20/20 6:23 PM Result Value Ref Range Units requested 1 Units requested Ready Unit Number [id number] Product code [id number] Blood Expiration Date [id number] Product Blood Type (for scanning) 5100 Product [...] AM Result Value Ref Range Unit Number [id number] Product code [id number] Blood Expiration Date [id number] Product Blood Type (for scanning) 5100 Product Blood Type OPOS Dispense Status DISPENSED POCT glucose Collection Time: 12/21/20 2:34 AM Result Value Ref Range Glucose, POC 143 (H) 71 - 98 mg/dL Prepare plasma Collection Time: 12/21/20 6:42 AM Result Value Ref Range Unit Number [id number] Product code [id number] Blood Expiration Date 149488712569 Product Blood Type (for scanning) 5100 Product [...] agreewith the current plan Voice recognition software [employer] was used dictate and transcribe this document. Regrinder Operator variances may occur. 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 States same thing happened last [...] BP Location FiO2 (%) 12/20/20 1507 -- 12/20/20194212/20/201942 -- Temporal Lying Right arm Physical Exam [...] tendency for uric acid stone formation. Source: [employer].Last revised 05-29-2017 CBC WITH AUTO DIFFERENTIAL - [...] CROSSMATCH Crossmatch Compatible Unit number for crossmatch [id number] TROPONIN T HIGH-SENSITIVITY 6-HOUR GUAIAC OCCULT BLOOD, FECAL, NON-NEOPLASM VITAMIN B12 SEPSIS LACTATE WITH REFLEX CBC WITH AUTO DIFFERENTIAL PREPARE RBC Units requested 1 Units requested Ready Unit Number [id number] Product code [id number] Blood Expiration Date Product Blood Type (for [...] Course as of Dec 20 2309 Time: 12/21 1715 Comment: Pt passed out on standing, is [...] my words and actions. Julio Mccabe MD 12/20/206 Julio Mccabe MD 12/20/20 2310 * Darby Kaplan RN - 12/20/2020 3:03 [...] is being transported via wheelchair back to [facility] * Plan of Care - Bonny Boone [...] CDT Pt wearing home cpap unit [facility] * Plan of Billy - Aida Schuster RN - 12/25/2020 5:13 [...] Infection and the urinarycatheter, (see the approved [facility] guidelines below). A cause and effect relationship [...] > 100,000 cfu/ml with voided specimen or Sherrill count > 50,000 cfu/ml with catheterized specimen *In patients who have failed outpatient treatment, culture may be negative due to previous antibiotic use Sources: CDC/NHSN Definition of CAUTI and UTI, 2009 International Clinical Practice Guidelines fromIDSA, AHA [facility]oding [facility] 32008 and 22011 and ID Society practice guidelines for asymptomatic [...] record. Sincerely, Aleta Carr RN, CDS Clinical Filling Machine Tender [phone] * Plan of Care - Trina Benitez RN - 12/25/2020 10:[address] [facility] referral placed in [facility] for RN/PT with [facility]. * Plan of Billy - Aruna Waller RN - 12/25/2020 4:31 [...] bedside. * Plan of Care - Karey Bashir PT - 12/23/2020 10:18 AM CDT Problem: [...] Assessment Interview Note Information Obtained From: Patient (12/21/201049) Admission Source: ED- EMS Impression: c/o weakness x3D Plan Includes: Assessment and Discharge Planning Primary Source of Transportation: Health Insurance Coverage: Medicare A/B, [employer] Prescription Coverage: yes Pharmacy: [facility] in [place] Primary Care Provider: Destiney Camargo MD Prior to Admission: Primary Caregiver: Spouse Support System: Spouse/Significant Other, Children, Family members, Friends/neighbors Home Care Services: Yes 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 [facility] comes out for [facility] RN. She hasa friend that come [...] the medical record. Julio Mccabe MD 12/20/20 2316 * ED Procedure Note - Julio Mccabe [...] EKG on 11/26/2020. Julio Mccabe MD 12/20/20 3977 documented in this encounter Plan of Treatment Not on file documented as of this encounter Procedures Procedure Name Priority Date/Time Associated Diagnosis Comments POCT GLUCOSE DEVICE Routine 12/28/2020 1 1:56 AM CDT POCT GLUCOSE DEVICE Routine 12/28/2020 8 :50 AM CDT EGFR Routine 12/28/2020 4:36 AM CDT CBC WITHOUT DIFFERENTIAL Routine 12/28/2020 4:36 AM CDT BASIC METABOLIC PANEL Routine 12/28/2020 4:36 AM CDT POCT GLUCOSE DEVICE Routine 12/28/2020 2 :58 AM CDT POCT GLUCOSE DEVICE Routine 12/27/2020 9 :58 PM CDT POCT GLUCOSE DEVICE Routine 12/27/2020 5 :08 PM CDT SIGMOIDOSCOPY 12/27/2020 3:35 PM CDT Constipation, unspecified constipation type FLEXIBLE SIGMOIDOSCOPY 12/27/2020 3:31 PM CDT POCT GLUCOSE DEVICE Routine 12/27/2020 3 :27 PM CDT POCT GLUCOSE DEVICE Routine 12/27/2020 1 2:00 PM CDT POCT GLUCOSE DEVICE Routine 12/27/2020 7 :29 AM CDT EGFR Routine 12/27/2020 5:28 AM CDT CBC WITHOUT DIFFERENTIAL Routine 12/27/2020 5:28 AM CDT MAGNESIUM Routine 12/27/2020 5:28 AM CDT BASIC METABOLIC PANEL Routine 12/27/2020 5:28 AM CDT POCT GLUCOSE DEVICE Routine 12/27/2020 2 :49 AM CDT POCT GLUCOSE DEVICE Routine 12/26/2020 9 :08 PM CDT POCT GLUCOSE DEVICE Routine 12/26/2020 5 :10 PM CDT POCT GLUCOSE DEVICE Routine 12/26/2020 1 1:57 AM CDT POCT GLUCOSE DEVICE Routine 12/26/2020 8 :15 AM CDT EGFR Routine 12/26/2020 4:35 AM CDT CBC WITHOUT DIFFERENTIAL Routine 12/26/2020 4:35 AM CDT BASIC METABOLIC PANEL Routine 12/26/2020 4:35 AM CDT POCT GLUCOSE DEVICE Routine 12/26/2020 3 :26 AM CDT POCT GLUCOSE DEVICE Routine 12/25/2020 9 :14 PM CDT POCT GLUCOSE DEVICE Routine 12/25/2020 5 :14 PM CDT XR ABDOMEN AP 1 VIEW IP Routine 12/25/2020 3:18 PM CDT XR WRIST LEFT 3 OR MORE VIEWS IP Routine 12/25/2020 3:18 PM CDT POCT GLUCOSE DEVICE Routine 12/25/2020 1 2:12 PM CDT US CAROTIDS DUPLEX BILATERAL IP Routine 12/25/2020 9:20 AM CDT POCT GLUCOSE DEVICE Routine 12/25/2020 8 :10 AM CDT CBC WITHOUT DIFFERENTIAL Routine 12/25/2020 5:46 AM CDT POCT GLUCOSE DEVICE Routine 12/25/2020 3 :05 AM CDT POCT GLUCOSE DEVICE Routine 12/24/2020 8 :56 PM CDT POCT GLUCOSE DEVICE Routine 12/24/2020 4 :36 PM CDT POCT GLUCOSE DEVICE Routine 12/24/2020 1 2:22 PM CDT POCT GLUCOSE DEVICE Routine 12/24/2020 8 :00 AM CDT POCT GLUCOSE DEVICE Routine 12/24/2020 7 :34 AM CDT EGFR Routine 12/24/2020 4:43 AM CDT THYROID FUNCTION CASCADE Routine 12/24/2020 4:43 AM CDT CBC WITHOUT DIFFERENTIAL Routine 12/24/2020 4:43 AM CDT T4, FREE Routine 12/24/2020 4:43 AM CDT PHOSPHORUS Routine 12/24/2020 4:43 AM CDT BASIC METABOLIC PANEL Routine 12/24/2020 4:43 AM CDT POCT GLUCOSE DEVICE Routine 12/24/2020 2 :19 AM CDT POCT GLUCOSE DEVICE Routine 12/23/2020 9 :08 PM CDT POCT GLUCOSE DEVICE Routine 12/23/2020 5 :10 PM CDT POCT GLUCOSE DEVICE Routine 12/23/2020 1 1:45 AM CDT POCT GLUCOSE DEVICE Routine 12/23/2020 8 :33 AM CDT EGFR Routine 12/23/2020 5:09 AM CDT DIFFERENTIAL AUTO Routine 12/23/2020 5:0 9 AM CDT CBC WITH AUTO DIFFERENTIAL Routine 12/23/2020 5:09 AM CDT FOLATE Routine 12/23/2020 5:09 AM CDT RENAL FUNCTION PANEL Routine 12/23/2020 5:09 AM CDT POCT GLUCOSE DEVICE Routine 12/23/2020 2 :00 AM CDT POCT GLUCOSE DEVICE Routine 12/22/2020 8 :50 PM CDT POCT GLUCOSE DEVICE Routine 12/22/2020 5 :16 PM CDT SURGICAL PATHOLOGY STAT 12/22/2020 1: 17 PM CDT Anemia, unspecified type Occult blood in stools H. PYLORI UREASE SCREEN (MAIA TEST) STAT 12/22/2020 11:41 AM CDT POCT GLUCOSE DEVICE Routine 12/22/2020 1 1:18 AM CDT EGD 12/22/2020 11:16 AM CDT POCT GLUCOSE DEVICE Routine 12/22/2020 8 :24 AM CDT EGFR Routine 12/22/2020 4:23 AM CDT DIFFERENTIAL AUTO Routine 12/22/2020 4:2 3 AM CDT CBC WITH AUTO DIFFERENTIAL Routine 12/22/2020 4:23 AM CDT VITAMIN B12 Routine 12/22/2020 4:23 AM CDT RENAL FUNCTION PANEL Routine 12/22/2020 4:23 AM CDT POCT GLUCOSE DEVICE Routine 12/22/2020 2 :02 AM CDT POCT GLUCOSE DEVICE Routine 12/21/2020 9 :08 PM CDT CBC WITHOUT DIFFERENTIAL Routine 12/21/2020 6:11 PM CDT POCT GLUCOSE DEVICE Routine 12/21/2020 5 :33 PM CDT POCT GLUCOSE DEVICE Routine 12/21/2020 1 2:33 PM CDT DIFFERENTIAL AUTO Timed 12/21/2020 10: 59 AM CDT CBC WITH AUTO DIFFERENTIAL Timed 12/21/2020 10:59 AM CDT ECG 12-LEAD Routine 12/21/2020 10:33 AM CDT POCT GLUCOSE DEVICE Routine 12/21/2020 1 0:13 AM CDT GUAIAC OCCULT BLOOD, FECAL, NOT FOR NEOPLASM SCREENING Routine 12/21/2020 9:38 AM CDT POCT GLUCOSE DEVICE Routine 12/21/2020 8 :44 AM CDT EGFR STAT 12/21/2020 7:38 AM CDT CBC WITHOUT DIFFERENTIAL STAT 12/21/2020 7:38 AM CDT BASIC METABOLIC PANEL STAT 12/21/2020 7:38 AM CDT TRANSFUSE PLASMA Timed 12/21/2020 6:50 AM CDT PREPARE PLASMA Routine 12/21/2020 6:42 AM CDT TRANSFUSE PLASMA Timed 12/21/2020 2:38 AM CDT POCT GLUCOSE DEVICE Routine 12/21/2020 2 :34 AM CDT PREPARE PLASMA Routine 12/21/2020 1:58 AM CDT PREPARE PLASMA STAT 12/20/2020 11:36 PM CDT DIFFERENTIAL AUTO Timed 12/20/2020 11: 23 PM CDT CBC WITH AUTO DIFFERENTIAL Timed 12/20/2020 11:23 PM CDT MD CRITICAL CARE ILL/INJURED PATIENT INIT 30-74 MIN Routine 12/20/2020 10:08 PM CDT TRANSFUSE RED BLOOD CELLS Timed 12/20/2020 7:[address] ABDOMEN PELVIS W CONTRAST ED 12/20/2020 6:59 PM CDT B ABO / RH CONFIRMATION TESTING Routine 12/20/2020 6:25 PM CDT PREPARE RBC Timed 12/20/2020 6:23 PM CDT CROSSMATCH Timed 12/20/2020 6:20 PM CDT COVID-19 CORONAVIRUS RNA Routine 12/20/2020 5:57 PM CDT IRON PROFILE W/ IBC Routine 12/20/2020 5 :39 PM CDT FERRITIN Routine 12/20/2020 5:39 PM CDT VITAMIN B12 Routine 12/20/2020 5:39 PM CDT SEPSIS LACTATE WITH REFLEX Routine 12/20/2020 4:35 PM CDT B ABO / RH CONFIRMATION TESTING STAT 12/20/2020 4:35 PM CDT ABO/RH STAT 12/20/2020 4:35 PM CDT RETICULOCYTES STAT 12/20/2020 4:35 PM CDT ANTIBODY SCREEN STAT 12/20/2020 4:35 PM CDT TYPE AND SCREEN STAT 12/20/2020 4:35 PM CDT URINALYSIS AND REFLEX TO MICROSCOPIC AND CULTURE Routine 12/20/2020 4:27 PM CDT URINALYSIS, MICROSCOPIC ONLY Routine 12/20/2020 4:27 PM CDT URINE CULTURE Routine 12/20/2020 4:27 PM CDT XR CHEST 1 VIEW ED 12/20/2020 4:21 PM CDT TROPONIN T HIGH-SENSITIVITY SERIES (BASELINE, 2HR, 4HR, 6HR) STAT 12/20/2020 4:10 PM CDT EGFR STAT 12/20/2020 4:10 PM CDT DIFFERENTIAL AUTO STAT 12/20/2020 4:1 0 PM CDT PRO B-TYPE NATRIURETIC PEPTIDE STAT 12/20/2020 4:10 PM CDT IRON PROFILE W/ IBC STAT 12/20/2020 4 :10 PM CDT CBC WITH AUTO DIFFERENTIAL STAT 12/20/2020 4:10 PM CDT PROTIME-INR STAT 12/20/2020 4:10 PM CDT CRP (ACUTE PHASE) STAT 12/20/2020 4:1 0 PM CDT MAGNESIUM Routine 12/20/2020 4:10 PM CDT COMPREHENSIVE METABOLIC PANEL STAT 12/20/2020 4:10 PM CDT ECG 12-LEAD Routine 12/20/2020 4:09 PM CDT POCT GLUCOSE DEVICE Routine 12/20/2020 3 :15 PM CDT documented in this encounter Results * Transfuse RBC (12/28/2020 7:29 PM CDT) Blood specimen (specimen) Julio Mcacbe MD BLOOD TRANSFUSION ORDERABLE S Edited Result - Final Performing Organization Address [facility] Co de Phone Number MADDI [facility] ([place]) [address] [facility] [place] [place] [address] * Transfuse RBC: 1 Units (12/28/2020 7:29 PM CDT) Blood specimen (specimen) Julio Mccabe MD BLOOD TRANSFUSION ORDERABLE S Edited Result - Final * (ABNORMAL) POCT glucose (12/28/2020 11:56 AM CDT) Glucose, POC 189(H) 71 - 98 mg/dL [facility]DI [facility] ([place]) Blood specimen (specimen) 12/28/2020 11:56 AM CDT 12/28/2020 11:56 AM CDT Nina Larsen MD LAB POCT ORDERABLES - DEV ICE Final Result Performing Organization Address [facility] Co de Phone Number MADID [facility] ([place]) [address] [facility] [place] [place] [address] * (ABNORMAL) POCT glucose (12/28/2020 8:50 AM CDT) Glucose, POC 149(H) 71 - 98 mg/dL M[facility]DI [facility] ([place]) Blood specimen (specimen) 12/28/2020 8:50 AM CDT 12/28/2020 8:50 AM CDT Nina Larsen MD LAB POCT ORDERABLES - DEV ICE Final Result Performing Organization Address City/[facility] Co de Phone Number MADDI [facility]FF ([place]) [address] [facility] [place] [address] * eGFR (12/28/2020 4:36 AM CDT) eGFR 82 mL/min/1.7 3 m2 [facility]DI [facility] ([place]) Comment: Interpretive Data Reference Interval Normal ?>/= [...] LAB BLOOD ORDERABLES Final Result MADDI [facility] ([place]) [address] [facility] [place] [place] [address] * (ABNORMAL) Basic metabolic panel (12/28/2020 4:36 [...] 2017. Calcium 9.2 8.5 - 10.3 mg/dL [facility] ([place]) Blood specimen (specimen) 12/28/2020 4:36 AM CDT 12/28/2020 5:07 AM CDT us Neeta Patel MD LAB BLOOD ORDERABLES Final Result [facility] ([place]) [address] [facility] [place] [address] * (ABNORMAL) CBC without differential (12/28/2020 4:36 AM CDT) WBC 8.3 3.8 - 9.9 K/cumm [facility] ([place]) Hgb 9.3(L) 11.9 - 15.5 g/dL [facility] ([place]) Hct 32.8(L) 35.6 - 45.5 % [facility] ([place]) Plt 277 150 - 400 K/cumm [facility] ([place]) MPV 10.2 9.1 - 12.3 fL [facility] ([place]) RBC 4.07 3.90 - 5.20 M/cumm [facility] ([place]) MCV 80.6(L) 81.3 - 96.4 fL [facility] ([place]) MCH 22.9(L) 27.1 - 33.3 pg [facility] ([place]) MCHC 28.4(L) 32.3 - 35.7 g/dL [facility] ([place]) RDW CV 19.9(H) 11.1 - 14.9 % [facility] ([place]) RDW SD 57.6(H) 35.7 - 48.1 fL [facility] ([place]) NRBC abs 0.00 0.00 - 0.01 K/cumm [facility] ([place]) Blood specimen (specimen) 12/28/2020 4:36 AM CDT 12/28/2020 5:07 AM CDT us Neeta Patel MD LAB BLOOD ORDERABLES Final Result M[facility]DI [facility] ([place]) [address] [facility] [employer] [place] [id number] * (ABNORMAL) POCT glucose (12/28/2020 2:58 AM CDT) Glucose, POC 158(H) 71 - 98 mg/dL [facility] ([place]) Blood specimen (specimen) 12/28/2020 2:58 AM CDT 12/28/2020 2:58 AM CDT us Nina Larsen MD LAB POCT ORDERABLES - DEV ICE Final Result M[facility]DI [facility] ([place]) [address] [facility] [place] [place] [address] * (ABNORMAL) POCT glucose (12/27/2020 9:58 PM CDT) Glucose, POC 214(H) 71 - 98 mg/dL [facility] Blood specimen (specimen) 12/27/2020 9:58 PM CDT 12/27/2020 9:58 PM CDT Nina Larsen MD LAB POCT ORDERABLES - DEV ICE Final Result Performing Organization Address City/[facility] Co de Phone Number MADDI [facility] ([place]) [address] [facility] [place] [place] [address] * (ABNORMAL) POCT glucose (12/27/2020 5:08 PM CDT) Glucose, POC 115(H) 71 - 98 mg/dL [facility] ([place] Blood specimen (specimen) 12/27/2020 5:08 PM CDT 12/27/2020 5:08 PM CDT Nina Larsen MD LAB POCT ORDERABLES - DEV ICE Final Result Performing Organization Address City/[facility] Co de Phone Number MADDI [facility] ([place]) [address] [place] [address] * FLEXIBLE SIGMOIDOSCOPY (12/27/2020 3:31 PM CDT) Anatomical Region Laterality Modality Other Narrative Procedure Note Neeta Patel MD - 12/27/2020 3:31 PM CDT [facility] Patient Name: Loc Anderson Procedure Date: 12/27/2020 3:31 PM Date of : 1940 Admit Type: Inpatient Age: 80 Gender: Female Attending MD: Neeta Patel M.D. Room: [facility] ENDOSCOPY ROOM 1 Note Status: Finalized Patient [...] and informed consentwas obtained. The Endoscope [id number] was introduced through the anus and advanced [...] 3:31 PM Procedure Code(s): --- Professional --- 93103, Sigmoidoscopy, flexible; diagnostic, including collection of specimen(s) by brushing or washing, when performed (separateprocedure) Diagnosis Code(s): --- Professional --- R19.5, Other fecal abnormalities K59.00, Constipation, unspecified K56.41, Fecal impaction CPT copyright 2019 [employer]. All rights reserved. The codes documented in this report are preliminary and upon accounts receivable processor reviewmay be revised to meet current compliance requirements. Recognized by the [employer] for promoting quality in endoscopy us Neeta Patel MD ENDOSCOPY PROCEDURES Final Result * (ABNORMAL) POCT glucose (12/27/2020 3:27 PM CDT) Glucose, POC 114(H) 71 - 98 mg/dL [facility] ([place]) Blood specimen (specimen) 12/27/2020 3:27 PM CDT 12/27/2020 3:27 PM CDT Nina Larsen MD LAB POCT ORDERABLES - DEV ICE Final Result Performing Organization Address City/[facility]/ZIP Co de Phone Number MADDI [facility] ([place]) [address] [facility] [place] [place] [address] * (ABNORMAL) POCT glucose (12/27/2020 12:00 PM CDT) Glucose, POC 136(H) 71 - 98 mg/dL [facility] ([place]) Blood specimen (specimen) 12/27/2020 12:00 PM CDT 12/27/2020 12:00 PM CDT Nina Larsen MD LAB POCT ORDERABLES - DEV ICE Final Result Performing Organization Address [facility] Co de Phone Number MADDI [facility] ([place]) [address] [facility] [place] [place] [address] * (ABNORMAL) POCT glucose (12/27/2020 7:29 AM CDT) Glucose, POC 131(H) 71 - 98 mg/dL [facility]DI [facility] ([place]) Blood specimen (specimen) 12/27/2020 7:29 AM CDT 12/27/2020 7:29 AM CDT Nina Larsen MD LAB POCT ORDERABLES - DEV ICE Final Result Performing Organization Address City/[facility]/ZIP Co de Phone Number MADDI [facility] ([place]) [address] [facility] [place] [place] [address] * eGFR (12/27/2020 5:28 AM CDT) eGFR 78 mL/min/1.7 3 m2 M[facility]DI [facility] ([place]) Comment: [...] ORDERABLES Bárbara l Result Performing Organization Address City/State/[facility] Co de Phone Number MADDI [facility] ([place]) [address] [facility] [place] [address] * (ABNORMAL) Magnesium (12/27/2020 5:28 AM CDT) Magnesium 3.7(H) 1.4 - 2.5 mg/dL [facility]DI [facility] ([place]) Blood specimen (specimen) 12/27/2020 5:28 AM CDT 12/27/2020 5:48 AM CDT Nina Larsen MD LAB BLOOD ORDERABLES Bárbara l Result Performing Organization Address City/[facility]/ZIP Co de Phone Number MADDI [facility] ([place]) [address] [facility] [place] [address] * Basic metabolic panel (12/27/2020 5:28 AM CDT) Sodium 135 135 - 145 mmol/L [facility] ([place]) Potassium, pl 4.5 3.3 - 4.9 mmol/L [facility] ([place]) Chloride 103 97 - 110 mmol/L [facility] ([place]) CO2 25 22 - 32 mmol/L [facility] ([place]) Anion gap 7 2 - 15 mmol/L [facility] ([place]) BUN 19 8 - 25 mg/dL [facility] ([place]) Creatinine 0.72 0.60 - 1.10 mg/dL [facility] ([place]) Glucose 148 70 - 199 mg/dL [facility] ([place]) Comment: Interpretive Data [...] 2017. Calcium 9.6 8.5 - 10.3 mg/dL [facility] ([place]) Blood specimen (specimen) 12/27/2020 5:28 AM CDT 12/27/2020 5:48 AM CDT us Nina Larsen MD LAB BLOOD ORDERABLES Bárbara mcdaniel Result MADDI [facility] ([place]) [address] [facility] [place] [address] * (ABNORMAL) CBC without differential (12/27/2020 5:28 [...] ([place]) MCHC 28.0(L) 32.3 - 35.7 g/dL [facility] ([place]) RDW CV 20.5(H) 11.1 - 14.9 % [facility] ([place]) RDW SD 58.6(H) 35.7 - 48.1 fL [facility] ([place]) NRBC abs 0.02(H) 0.00 - 0.01 K/cumm [facility] ([place]) Blood specimen (specimen) 12/27/2020 5:28 AM CDT 12/27/2020 5:48 AM CDT Nina Larsen MD LAB BLOOD ORDERABLES Bárbara l Result M[facility]DI [facility] ([place]) [address] [facility] [place] [address] * (ABNORMAL) POCT glucose (12/27/2020 2:49 AM CDT) Glucose, POC 136(H) 71 - 98 mg/dL [facility] ([place]) Blood specimen (specimen) 12/27/2020 2:49 AM CDT 12/27/2020 2:49 AM CDT Nina Larsen MD LAB POCT ORDERABLES - DEV ICE Final Result Performing Organization Address [facility]/ZIP Co de Phone Number MADDI [facility] ([place]) [address] [facility] [place] [place] [address] * (ABNORMAL) POCT glucose (12/26/2020 9:08 PM CDT) Glucose, POC 136(H) 71 - 98 mg/dL [facility]DI [facility] ([place]) Blood specimen (specimen) 12/26/2020 9:08 PM CDT 12/26/2020 9:08 PM CDT Nina Larsen MD LAB POCT ORDERABLES - DEV ICE Final Result Performing Organization Address [facility] Co de Phone Number MADDI [facility] ([place]) [address] [facility] [place] [place] [address] * (ABNORMAL) POCT glucose (12/26/2020 5:10 PM CDT) Glucose, POC 162(H) 71 - 98 mg/dL [facility]DI [facility] ([place]) Blood specimen (specimen) 12/26/2020 5:10 PM CDT 12/26/2020 5:10 PM CDT Nina Larsen MD LAB POCT ORDERABLES - DEV ICE Final Result Performing Organization Address [facility]/ZIP Co de Phone Number MADDI [facility] ([place]) [address] [facility] [place] [address] * (ABNORMAL) POCT glucose (12/26/2020 11:57 AM CDT) Glucose, POC 142(H) 71 - 98 mg/dL [facility] ([place]) Blood specimen (specimen) 12/26/2020 11:57 AM CDT 12/26/2020 11:57 AM CDT us Nina Larsen MD LAB POCT ORDERABLES - DEV ICE Final Result MADDI [facility] ([place]) [address] [facility] [place] [address] * (ABNORMAL) POCT glucose (12/26/2020 8:15 AM CDT) Glucose, POC 145(H) 71 - 98 mg/dL [facility]DI [facility] ([place]) Blood specimen (specimen) 12/26/2020 8:15 AM CDT 12/26/2020 8:15 AM CDT Nina Larsen MD LAB POCT ORDERABLES - DEV ICE Final Result MADDI [facility] ([place]) [address] [facility] [place] [address] * eGFR (12/26/2020 4:35 AM CDT) Pathologist [facility] eGFR 82 mL/min/1.7 3 m2 MADDI [facility]OFF [...] 4:35 AM CDT 12/26/2020 5:01 AM CDT Wayne Snow MD LAB BLOOD ORDERABLES Final Result Performing Organization Address City/State/[facility] Co de Phone Number [facility] ([place]) [address] [facility] [place] [address] * (ABNORMAL) CBC without differential (12/26/2020 4:35 [...] 4:35 AM CDT 12/26/2020 5:01 AM CDT Wayne Snow MD LAB BLOOD ORDERABLES Final Result MADDI [facility] ([place]) [address] [facility] [place] [address] * Basic metabolic panel (12/26/2020 4:35 AM CDT) Sodium 135 135 - 145 mmol/L [facility] ([place]) Potassium, pl 4.9 3.3 - 4.9 mmol/L [facility] ([place]) Chloride 105 97 - 110 mmol/L [facility] ([place]) CO2 23 22 - 32 mmol/L [facility] ([place]) Anion gap 7 2 - 15 mmol/L [facility] ([place]) BUN 18 8 - 25 mg/dL [facility] ([place]) Creatinine 0.66 0.60 - 1.10 mg/dL [facility] ([place]) Glucose 135 70 - 199 mg/dL [facility] ([place]) Comment: Interpretive Data Fasting glucose [...] 2017. Calcium 9.5 8.5 - 10.3 mg/dL [facility] ([place]) Blood specimen (specimen) 12/26/2020 4:35 AM CDT 12/26/2020 5:01 AM CDT Wayne Snow MD LAB BLOOD ORDERABLES Final Result M[facility]DI [place]) [address] [facility] [place] [place] [address] * (ABNORMAL) POCT glucose (12/26/2020 3:26 AM CDT) Glucose, POC 176(H) 71 - 98 mg/dL M[facility]ID [facility] ([place]) Blood specimen (specimen) 12/26/2020 3:26 AM CDT 12/26/2020 3:26 AM CDT us Wayne Snow MD LAB POCT ORDERABLES - DEVIC E Final Result Performing Organization Address [facility]/ZIP Co de Phone Number MADDI [facility] ([place]) [address] [facility] [place] [place] [address] * (ABNORMAL) POCT glucose (12/25/2020 9:14 PM CDT) Glucose, POC 185(H) 71 - 98 mg/dL [facility]DI [facility] ([place]) Blood specimen (specimen) 12/25/2020 9:14 PM CDT 12/25/2020 9:14 PM CDT Wayne Snow MD LAB POCT ORDERABLES - DEVIC E Final Result Performing Organization Address [facility] Co de Phone Number MADDI [facility] ([place]) [address] [facility] [place] [place] [address] * (ABNORMAL) POCT glucose (12/25/2020 5:14 PM CDT) Glucose, POC 144(H) 71 - 98 mg/dL [facility] ([place]) Blood specimen (specimen) 12/25/2020 5:14 PM CDT 12/25/2020 5:14 PM CDT us Wayne Snow MD LAB POCT ORDERABLES - DEVIC E Final Result Performing Organization Address City/[facility] Co de Phone Number MADDI [facility] ([place]) [address] [facility] [place] [place] [address] * XR Abdomen Ap 1 Vw (12/25/2020 [...] PM T: ??12/25/2020 4:31 PM Report ID: [id number] Reading Location: ??[id number] Procedure Note Ian Cummings MD - 12/25/2020 [...] Keyshawn Cummings M.D. LEIGH: LEIGH Report ID: [id number] Reading Location: [id number] us Wayne Snow MD IMG XR PROCEDURES [...] Keyshawn Cummings M.D. LEIGH: LEIGH D: ??12/25/2020 4:30 PM T: ??12/25/2020 4:30 PM Report ID: [id number] Reading Location: [id number] Procedure Note Ian Cummings MD - 12/25/2020 [...] Keyshawn Cummings M.D. LEIGH: LEIGH Report ID: [id number] Reading Location: [place] [id number] us Wayne Snow MD IMG XR PROCEDURES Final Res ult * (ABNORMAL) POCT glucose (12/25/2020 12:12 PM CDT) Glucose, POC 175(H) 71 - 98 mg/dL [facility]DI [facility]OFF ([place]) Blood specimen (specimen) 12/25/2020 12:12 PM CDT 12/25/2020 12:12 PM CDT us Wayne Snow MD LAB POCT ORDERABLES - DEVIC E Final Result Performing Organization Address City/State/[facility] Co de Phone Number MADDI HOFF ([place]) [address] [facility] [place] [address] * US Carotids Duplex Bilateral (12/25/2020 9:20 [...] AM T: ??12/25/2020 9:30 AM Report ID: [id number] Reading Location: ??[id number] Procedure Note Hilario Bolanos MD - 12/25/2020 [...] Hilario Bolanos M.D. AG: SORAIDA Report ID: [id number] Reading Location: [place] [id number] us Wayne Snow MD IM US PROCEDURES Final Res ult * (ABNORMAL) POCT glucose (12/25/2020 8:10 AM CDT) Glucose, POC 117(H) 71 - 98 mg/dL MADDI HOFF ([place]) Blood specimen (specimen) 12/25/2020 8:10 AM CDT 12/25/2020 8:10 AM CDT us Wayne Snow MD LAB POCT ORDERABLES - DEVIC E Final Result [facility] ([place]) [address] [facility] [place] [address] * (ABNORMAL) CBC without differential (12/25/2020 5:46 [...] K/cumm [facility] ([place]) Blood specimen (specimen) 12/25/2020 5:46 AM CDT 12/25/2020 5:52 AM CDT us Wayne Snow MD LAB BLOOD ORDERABLES Final Result [facility] ([place]) 1 [facility] [place] [place] [address] * (ABNORMAL) POCT glucose (12/25/2020 3:05 AM CDT) Glucose, POC 121(H) 71 - 98 mg/dL [facility] ([place]) Blood specimen (specimen) 12/25/2020 3:05 AM CDT 12/25/2020 3:05 AM CDT us Wayne Snow MD LAB POCT ORDERABLES - DEVIC E Final Result MADDI HOFF ([place]) 1 [place] [address] * (ABNORMAL) POCT glucose (12/24/2020 8:56 PM CDT) Glucose, POC 160(H) 71 - 98 mg/dL [facility] Blood specimen (specimen) 12/24/2020 8:56 PM CDT 12/24/2020 8:56 PM CDT us Wayne Snow MD LAB POCT ORDERABLES - DEVIC E Final Result Performing Organization Address [facility] Co de Phone Number MADDI HOFF ([place]) 1 [facility] [place] [place] [address] * (ABNORMAL) POCT glucose (12/24/2020 4:36 PM CDT) Glucose, POC 142(H) 71 - 98 mg/dL MADDI [facility] ([place]) Blood specimen (specimen) 12/24/2020 4:36 PM CDT 12/24/2020 4:36 PM CDT us Wayne Snow MD LAB POCT ORDERABLES - DEVIC E Final Result MADDI HOFF ([place]) 1 [facility] [place] [address] * (ABNORMAL) POCT glucose (12/24/2020 12:22 PM CDT) Glucose, POC 160(H) 71 - 98 mg/dL MADDI HOFF ([place]) Blood specimen (specimen) 12/24/2020 12:22 PM CDT 12/24/2020 12:22 PM CDT us Wayne Snow MD LAB POCT ORDERABLES - DEVIC E Final Result MADDI HOFF ([place]) 1 [facility] [place] [address] * (ABNORMAL) POCT glucose (12/24/2020 8:00 AM CDT) Glucose, POC 124(H) 71 - 98 mg/dL MADDI HOFF ([place]) Blood specimen (specimen) 12/24/2020 8:00 AM CDT 12/24/2020 8:00 AM CDT us Wayne Snow MD LAB POCT ORDERABLES - DEVIC E Final Result Performing Organization Address [facility] Co de Phone Number MADDI HOFF ([place]) 1 [facility] [place] [address] * (ABNORMAL) POCT glucose (12/24/2020 7:34 AM CDT) Glucose, POC 137(H) 71 - 98 mg/dL MADDI HOFF ([place]) Blood specimen (specimen) 12/24/2020 7:34 AM CDT 12/24/2020 7:34 AM CDT us Wayne Snow MD LAB POCT ORDERABLES - DEVIC E Final Result Performing Organization Address City/[facility]/ZIP Co de Phone Number MADDI HOFF ([place]) [address] [facility] [place] [address] * T4, free (12/24/2020 4:43 AM CDT) Free T4 1.30 0.90 - 1.70 ng/dL MADDI HOFF ([place]) Blood specimen (specimen) 12/24/2020 4:43 AM CDT 12/24/2020 8:05 AM CDT Narrative MADDI HOFF ([place]) - 12/24/2020 9:05 AM CDT This test was reflexed from a TSH result. Wayne Snow MD LAB BLOOD ORDERABLES Final Result Performing Organization Address City/[facility]/ZIP Co de Phone Number MADDI HOFF ([place]) 1 [facility] [place] [address] * (ABNORMAL) TSH reflex to free T4 (12/24/2020 4:43 AM CDT) Pathologist [facility] TSH 5.72(H) 0.30 - 4.20 mcIUnit/mL MADDI HOFF ([place]) Blood specimen (specimen) 12/24/2020 4:43 AM CDT 12/24/2020 8:05 AM CDT Wayne Snow MD LAB BLOOD ORDERABLES Final Result MADDI HOFF ([place]) 1 [facility] [place] [address] * eGFR (12/24/2020 4:43 AM CDT) eGFR 84 mL/min/1.7 3 m2 MADDI HOFF ([place]) Comment: [...] Snow MD LAB BLOOD ORDERABLES Final Result [facility] ([place]) [address] [facility] [place] [address] * (ABNORMAL) Basic metabolic panel (12/24/2020 4:43 AM CDT) Sodium 138 135 - 145 mmol/L [facility] ([place]) Potassium, pl 4.4 3.3 - 4.9 mmol/L [facility] ([place]) Chloride 111(H) 97 - 110 mmol/L [facility] ([place]) CO2 21(L) 22 - 32 mmol/L [facility] ([place]) Anion gap 7 2 - 15 mmol/L [facility] ([place]) BUN 13 8 - 25 mg/dL [facility] ([place]) Creatinine 0.62 0.60 - 1.10 mg/dL [facility] ([place]) Glucose 121 70 - 199 mg/dL [facility] ([place]) Comment: Interpretive Data [...] 2017. Calcium 8.9 8.5 - 10.3 mg/dL [facility] ([place]) Blood specimen (specimen) 12/24/2020 4:43 AM CDT 12/24/2020 5:22 AM CDT Wayne Snow MD LAB BLOOD ORDERABLES Final Result [facility] ([place]) 1 [facility] [place] [address] * Phosphorus (12/24/2020 4:43 AM CDT) Pathologist [facility] Phosphorus, pl 2.4 2.3 - 4.5 mg/dL [facility] ([place]) Blood specimen (specimen) 12/24/2020 4:43 AM CDT 12/24/2020 5:22 AM CDT Wayne Snow MD LAB BLOOD ORDERABLES Final Result Performing Organization Address City/[facility]/ZIP Co de Phone Number MADDI HOFF ([place]) 1 [facility] [place] [address] * (ABNORMAL) CBC without differential (12/24/2020 4:43 AM CDT) WBC 8.7 3.8 - 9.9 K/cumm [facility] ([place]) Hgb 8.6(L) 11.9 - 15.5 g/dL [facility] ([place]) Hct 30.5(L) 35.6 - 45.5 % [facility] ([place]) Plt 273 150 - 400 K/cumm [facility] ([place]) MPV 10.5 9.1 - 12.3 fL [facility] ([place]) RBC 3.78(L) 3.90 - 5.20 M/cumm [facility] ([place]) MCV 80.7(L) 81.3 - 96.4 fL [facility] ([place]) MCH 22.8(L) 27.1 - 33.3 pg [facility] ([place]) MCHC 28.2(L) 32.3 - 35.7 g/dL [facility] ([place]) RDW CV 19.6(H) 11.1 - 14.9 % [facility] ([place]) RDW SD 55.0(H) 35.7 - 48.1 fL [facility] ([place]) NRBC abs 0.02(H) 0.00 - 0.01 K/cumm [facility] ([place]) Blood specimen (specimen) 12/24/2020 4:43 AM CDT 12/24/2020 5:25 AM CDT Wayne Snow MD LAB BLOOD ORDERABLES Final Result Performing Organization Address City/[facility]/ZIP Co de Phone Number MADDI HOFF ([place]) [address] [facility] [place] [address] * (ABNORMAL) POCT glucose (12/24/2020 2:19 AM CDT) Glucose, POC 143(H) 71 - 98 mg/dL [facility] LUIS EDUARDO ([place]) Blood specimen (specimen) 12/24/2020 2:19 AM CDT 12/24/2020 2:19 AM CDT Wayne Snow MD LAB POCT ORDERABLES - DEVIC E Final Result MADDI HOFF ([place]) 1 [facility] [place] [address] * (ABNORMAL) POCT glucose (12/23/2020 9:08 PM CDT) Glucose, POC 140(H) 71 - 98 mg/dL MADDI HOFF ([place]) Blood specimen (specimen) 12/23/2020 9:08 PM CDT 12/23/2020 9:08 PM CDT us Wayne Snow MD LAB POCT ORDERABLES - DEVIC E Final Result Performing Organization Address City/[facility]/ZIP Co de Phone Number MADDI HOFF ([place]) 1 [facility] [place] [address] * (ABNORMAL) POCT glucose (12/23/2020 5:10 PM CDT) Glucose, POC 123(H) 71 - 98 mg/dL AMDDI HOFF ([place]) Blood specimen (specimen) 12/23/2020 5:10 PM CDT 12/23/2020 5:10 PM CDT us Wayne Snow MD LAB POCT ORDERABLES - DEVIC E Final Result Performing Organization Address [facility] Co de Phone Number MADDI HOFF ([place]) 1 [facility] [place] [address] * (ABNORMAL) POCT glucose (12/23/2020 11:45 AM CDT) Glucose, POC 183(H) 71 - 98 mg/dL MADDI HOFF ([place]) Blood specimen (specimen) 12/23/2020 11:45 AM CDT 12/23/2020 11:45 AM CDT us Wayne Snow MD LAB POCT ORDERABLES - DEVIC E Final Result Performing Organization Address City/[facility] Co de Phone Number MADDI HOFF ([place]) 1 [facility] [place] [address] * (ABNORMAL) POCT glucose (12/23/2020 8:33 AM CDT) Glucose, POC 114(H) 71 - 98 mg/dL MADDI [facility]OFF ([place]) Blood specimen (specimen) 12/23/2020 8:33 AM CDT 12/23/2020 8:33 AM CDT us Wayne Snow MD LAB POCT ORDERABLES - DEVIC E Final Result Performing Organization Address City/[facility]/ZIP Co de Phone Number MADDI HOFF ([place]) [address] [facility] [employer] [place] [address] * eGFR (12/23/2020 5:09 AM CDT) eGFR 86 mL/min/1.7 3 m2 MADDI HOFF ([place]) Comment: Interpretive Data Reference Interval Normal ?>/= [...] BLOOD ORDERABLES Final Result Performing Organization Address City/[facility]/ZIP Co de Phone Number MADDI HOFF ([place]) [address] [facility] [place] [place] [address] * (ABNORMAL) Differential, auto (12/23/2020 5:09 AM CDT) Neutrophil abs 4.7 1.7 - 6.5 K/cumm [facility] ([place]) Imm gran abs 0.1 0.0 - 0.1 K/cumm [facility] ([place]) Lymphocyte abs 1.3 0.8 - 3.3 K/cumm [facility] ([place]) Monocyte abs 1.4(H) 0.2 - 0.8 K/cumm [facility] ([place]) Eosinophil abs 0.3 0.0 - 0.5 K/cumm [facility] ([place]) Basophil abs 0.1 0.0 - 0.1 K/cumm [facility] ([place]) Neutrophil pct 59.5 % [facility] ([place]) Comment: Interpretive Data Percent cell count reference ranges are not reported, since discordance with absolute values may lead to misinterpretation of CBC data. Current Interpretive Data was last revised on 2017. Imm gran pct 1.1 % [facility] ([place]) Comment: Interpretive Data Percent cell count reference ranges are not reported, since discordance with absolute values may lead to misinterpretation of CBC data. Current Interpretive Data was last revised on 2017. Lymphocyte pct 16.7 % [facility] ([place]) Comment: Interpretive Data Percent cell count reference ranges are not reported, since discordance with absolute values may lead to misinterpretation of CBC data. Current Interpretive Data was last revised on 2017. Monocyte pct 17.5 % [facility] ([place]) Comment: Interpretive Data Percent cell count reference ranges are not reported, since discordance with absolute values may lead to misinterpretation of CBC data. Current Interpretive Data was last revised on 2017. Eosinophil pct 4.3 % [facility] ([place]) Comment: Interpretive Data Percent cell count reference ranges are not reported, since discordance with absolute values may lead to misinterpretation of CBC data. Current Interpretive Data was last revised on 2017. Basophil pct 0.9 % [facility] ([place]) Comment: Interpretive Data Percent cell count reference ranges are not reported, since discordance with absolute values may lead to misinterpretation of CBC data. Current Interpretive Data was last revised on 2017. Blood specimen (specimen) 12/23/2020 5:09 AM CDT 12/23/2020 5:35 AM CDT Neeta Patel MD LAB BLOOD ORDERABLES Final Result [facility] ([place]) [address] [facility] [place] [address] * (ABNORMAL) Renal function panel (12/23/2020 5:09 AM CDT) Sodium 139 135 - 145 mmol/L [facility] ([place]) Potassium, pl 4.1 3.3 - 4.9 mmol/L [facility] ([place]) Chloride 107 97 - 110 mmol/L [facility] ([place]) CO2 21(L) 22 - 32 mmol/L [facility] ([place]) Anion gap 10 2 - 15 mmol/L [facility] ([place]) BUN 15 8 - 25 mg/dL [facility] ([place]) Creatinine 0.58(L) 0.60 - 1.10 mg/dL [facility] ([place]) Glucose 104 70 - 199 mg/dL [facility] ([place]) [...] ORDERABLES Final Result [facility]DI [facility] ([place]) [address] [facility] Department [place] [address] * (ABNORMAL) CBC with auto differential (12/23/2020 [...] RDW SD 53.1(H) 35.7 - 48.1 fL [facility] ([place]) NRBC abs 0.04(H) 0.00 - 0.01 K/cumm [facility] ([place]) Blood specimen (specimen) 12/23/2020 5:09 AM CDT 12/23/2020 5:35 AM CDT us Neeta Patel MD LAB BLOOD ORDERABLES Final Result MADDI GOLDMAN) 1 [facility] [place] [address] * Folate (12/23/2020 5:09 AM CDT) Folic acid >20.0 >=5.0 ng/mL MADDI HOFF ([place]) Comment: Hemolysis present. ??Results may be affected. Testing performed by: [facility], [address] [place] [address], [place]., [address] Blood specimen (specimen) 12/23/2020 5:09 AM CDT 12/23/2020 5:58 PM CDT us Wayne Snow MD LAB BLOOD ORDERABLES Final Result MADDI GOLDMAN) 1 [facility] [place] [address] * (ABNORMAL) POCT glucose (12/23/2020 2:00 AM CDT) Glucose, POC 128(H) 71 - 98 mg/dL MADDI HOFF ([place]) Blood specimen (specimen) 12/23/2020 2:00 AM CDT 12/23/2020 2:00 AM CDT us Wayne Snow MD LAB POCT ORDERABLES - DEVIC E Final Result MADDI HOFF ([place]) 1 [facility] [place] [address] * (ABNORMAL) POCT glucose (12/22/2020 8:50 PM CDT) Glucose, POC 165(H) 71 - 98 mg/dL MADDI HOFF ([place]) Blood specimen (specimen) 12/22/2020 8:50 PM CDT 12/22/2020 8:50 PM CDT us Wayne Snow MD LAB POCT ORDERABLES - DEVIC E Final Result MADDI HOFF ([place]) [address] [facility] [place] [address] * (ABNORMAL) POCT glucose (12/22/2020 5:16 PM CDT) Glucose, POC 116(H) 71 - 98 mg/dL ANNA MARIEKIRSTIN [facility] ([place]) Blood specimen (specimen) 12/22/2020 5:16 PM CDT 12/22/2020 5:16 PM CDT Wayne Snow MD LAB POCT ORDERABLES - DEVIC E Final Result Performing Organization Address City/[facility] Co de Phone Number MADDI HOFF ([place]) [address] [facility] [place] [address] * Surgical pathology (12/22/2020 1:17 PM CDT) Tissue (Polyp(s), colon/colorectal, esophageal, gastric) 12/22/2020 11:36 AM CDT Tissue ([place], Biopsy) 12/22/2020 11:36 AM CDT Narrative PATHOLOGY [facility] ([place]) - 12/25/2020 2:15 PM CDT EPIC results best viewed via link to PDF [facility] Department of Pathology [address] [place] [id number] Note to Patients: This report may contain [...] Patient Name: ??LOC ANDERSON Address: ??[address] [facility], ??[place], [place] ??[address] Gender: ??F : ??1940 (Age: 80) Service: ??Medical Location: ??[facility] Hospital #: ??[id number] Patient Type: ??[facility] Accession # ?[id number] Taken: ??12/22/2020 Received: ??12/22/2020 Accessioned: ??12/22/2020 Reported: [...] determined by the Surgical Pathology Department at [facility] as part of an ongoing quality control inspector program and in compliance with federally mandated [...] characteristics determined by the Surgical Pathology Department [facility]. ??It has not been cleared or approved by the U. S. Food and Drug Administration. us Neeta Patel MD LAB PATHOLOGY ORDERABLES F inal Result PATHOLOGY [facility] ([place]) 1 [place] [address] * H. pylori urease screen (MAIA test) Tissue (12/22/2020 11:41 AM CDT) H. pylori, rapid (MAIA) Negative Negative [facility] ([place]) Tissue 12/22/2020 11:4 1 AM CDT 12/23/2020 8:20 AM CDT us Neeta Patel MD LAB MICROBIOLOGY - GENERAL ORDERABLES Final Result Performing Organization Address City/[facility] Co de Phone Number MADDI HOFF ([place]) 1 [facility] [place] [address] * (ABNORMAL) POCT glucose (12/22/2020 11:18 AM CDT) Glucose, POC 109(H) 71 - 98 mg/dL MADDI [facility] ([place]) Blood specimen (specimen) 12/22/2020 11:18 AM CDT 12/22/2020 11:18 AM CDT us Wayne Snow MD LAB POCT ORDERABLES - DEVIC E Final Result Performing Organization Address [facility] Co de Phone Number MADDI [facility] ([place]) [address] [place] [address] * EGD (12/22/2020 11:16 AM CDT) Anatomical Region Laterality Modality Other Narrative Procedure Note Neeta Patel MD - 12/22/2020 11:16 AM CDT [facility] Patient Name: Loc Anderson Procedure Date: 12/22/2020 11:16 AM Date of : 1940 Admit Type: Inpatient Age: 80 Gender: Female Attending MD: Neeta Patel M.D. Room: [facility] ENDOSCOPY ROOM 1 Note Status: Finalized Patient [...] passed under direct vision. The Endoscope [id number] was introduced through the mouth, and advanced [...] 11:16 AM Procedure Code(s): --- Professional --- 07827, Esophagogastroduodenoscopy, flexible, transoral; with biopsy, single or multiple Diagnosis Code(s): --- Professional --- K31.89, Other diseases of stomach and duodenum K31.7, Polyp of stomach and duodenum K22.8, Other specified diseases of esophagus D50.9, Iron deficiency anemia, unspecified R19.5, Other fecal abnormalities CPT copyright 2019 [employer]. All rights reserved. The codes documented in this report are preliminary and upon accounts receivable processor reviewmay be revised to meet current compliance requirements. Recognized by the [employer] for promoting quality in endoscopy Neeta Patel MD ENDOSCOPY PROCEDURES Final Result * POCT glucose (12/22/2020 8:24 AM CDT) Pathologist [facility] Glucose, POC 96 71 - 98 mg/dL MADDI [facility] ([place]) Blood specimen (specimen) 12/22/2020 8:24 AM CDT 12/22/2020 8:24 AM CDT Wayne Snow MD LAB POCT ORDERABLES - DEVIC E Final Result MADDI HOFF ([place]) [address] [facility] [place] [address] * eGFR (12/22/2020 4:23 AM CDT) [facility] eGFR 81 mL/min/1.7 3 m2 MADDI [facility] ([place]) Comment: Interpretive Data Reference Interval Normal ?>/= [...] LAB BLOOD ORDERABLES Final Result MADDI HOFF ([place]) [address] [facility] [place] [address] * (ABNORMAL) Differential, auto (12/22/2020 4:23 AM [...] Neutrophil pct 61.7 % [facility] ([place]) Comment: Interpretive Data Percent cell count reference [...] Mccabe MD LAB BLOOD ORDERABLES Final Result [facility] ([place]) [address] [facility] [place] [address] * (ABNORMAL) Renal function panel (12/22/2020 4:23 [...] Patel MD LAB BLOOD ORDERABLES Final Result [facility] ([place]) [address] [facility] [place] [address] * (ABNORMAL) CBC with auto differential (12/22/2020 [...] ([place]) MCHC 29.0(L) 32.3 - 35.7 g/dL [facility] ([place]) RDW CV 18.1(H) 11.1 - 14.9 % [facility] ([place]) RDW SD 51.8(H) 35.7 - 48.1 fL [facility] ([place]) NRBC abs 0.04(H) 0.00 - 0.01 K/cumm [facility] ([place]) Blood specimen (specimen) 12/22/2020 4:23 AM CDT 12/22/2020 5:03 AM CDT Neeta Patel MD LAB BLOOD ORDERABLES Final Result Performing Organization Address City/[facility]/ZIP Co de Phone Number MADDI GARCIAN) [address] [facility] [place] [address] * (ABNORMAL) Vitamin B12 (12/22/2020 4:23 AM CDT) Vitamin B12 1,571(H) 230 - 1,250 pg/mL MADDI HOFF ([place]) Comment:Testing performed by : [facility], [address] [place] [address], [place] [address] Blood specimen (specimen) 12/22/2020 4:23 AM CDT 12/22/2020 9:46 AM CDT us Wayne Snow MD LAB BLOOD ORDERABLES Final Result Performing Organization Address [facility] Co de Phone Number MADDI HOFF ([place]) 1 [facility] [place] [address] * (ABNORMAL) POCT glucose (12/22/2020 2:02 AM CDT) Glucose, POC 120(H) 71 - 98 mg/dL MADDI [facility]OFF ([place]) Blood specimen (specimen) 12/22/2020 2:02 AM CDT 12/22/2020 2:02 AM CDT Wayne Snow MD LAB POCT ORDERABLES - DEVIC E Final Result MADDI HOFF ([place]) [address] [facility] [place] [address] * (ABNORMAL) POCT glucose (12/21/2020 9:08 PM CDT) Glucose, POC 167(H) 71 - 98 mg/dL MADDI [facility]OFF ([place]) Blood specimen (specimen) 12/21/2020 9:08 PM CDT 12/21/2020 9:08 PM CDT us Wayne Snow MD LAB POCT ORDERABLES - DEVIC E Final Result [facility] ([place]) [address] [facility] [employer] [place] [address] * (ABNORMAL) CBC without differential (12/21/2020 6:11 PM CDT) WBC 11.5(H) 3.8 - 9.9 K/cumm [facility] [...] NRBC abs 0.06(H) 0.00 - 0.01 K/cumm [facility] ([place]) Blood specimen (specimen) 12/21/2020 6:11 PM CDT 12/21/2020 6:13 PM CDT us Wayne Snow MD LAB BLOOD ORDERABLES Final Result MADDI HOFF ([place]) 1 [facility] [place] [address] * (ABNORMAL) POCT glucose (12/21/2020 5:33 PM CDT) Glucose, POC 152(H) 71 - 98 mg/dL [facility] ([place]) Blood specimen (specimen) 12/21/2020 5:33 PM CDT 12/21/2020 5:33 PM CDT Wayne Snow MD LAB POCT ORDERABLES - DEVIC E Final Result MADDI HOFF ([place]) 1 [facility] [place] [address] * (ABNORMAL) POCT glucose (12/21/2020 12:33 PM CDT) Glucose, POC 121(H) 71 - 98 mg/dL ANNA MARIEKIRSTIN [facility] ([place]) Blood specimen (specimen) 12/21/2020 12:33 PM CDT 12/21/2020 12:33 PM CDT Wayne Snow MD LAB POCT ORDERABLES - DEVIC E Final Result Performing Organization Address [facility] Co de Phone Number MADDI HOFF ([place]) 1 [facility] [place] [address] * (ABNORMAL) Differential, auto (12/21/2020 10:59 AM [...] BLOOD ORDERABLES Final Result ANNA MARIEKIRSTIN HOFF ([place]) [address] [facility] [place] [address] * (ABNORMAL) CBC with auto differential (12/21/2020 [...] ORDERABLES Final Result [facility] ([place]) [address] [facility] [place] [address] * ECG 12 lead (12/21/2020 10:33 AM CDT) 12/21/2020 10:3 3 AM CDT Narrative [facility] - 12/21/2020 11:28 AM CDT Vent Rate: 77 bpm RR Interval: 771 msec MD Interval: 192 msec QRS Duration: 112 msec QT Interval: 415 msec QTC Interval: 447 msec P-R-T [place]: 46 - -28 - 55 degrees SINUS RHYTHM BORDERLINE LEFT AXIS DEVIATION [QRS AXIS < -20] MODERATE INTRAVENTRICULAR CONDUCTION DELAY [110+ ms QRS DURATION] BORDERLINE ECG No change from prior EKG Electronically Signed By: Landon Valencia MD Result [facility] Wayne Snow MD ECG ORDERABLES Final Resul t [facility] * (ABNORMAL) POCT glucose (12/21/2020 10:13 AM CDT) Glucose, POC 160(H) 71 - 98 mg/dL MADDI HOFF ([place]) Blood specimen (specimen) 12/21/2020 10:13 AM CDT 12/21/2020 10:13 AM CDT Wayne Snow MD LAB POCT ORDERABLES - DEVIC E Final Result Performing Organization Address City/[facility] Co de Phone Number MADDI LUIS EDUARDO ([place]) 1 [facility] [place] [address] * Transfuse plasma Standard plasma (12/21/2020 9:55 AM CDT) Blood specimen (specimen) Result [facility] Julio Mccabe MD BLOOD TRANSFUSION ORDERABLE S Final Result Performing Organization Address City/[facility] Co de Phone Number MADDI [facility] ED[facility]ARDO ([place]) 1 [facility] [place] [address] * Transfuse plasma: 2 Units Standard plasma (12/21/2020 9:55 AM CDT) Blood specimen (specimen) Julio Mccabe MD BLOOD TRANSFUSION ORDERABLE S Final Result * (ABNORMAL) Guaiac occult blood, fecal, non-neoplasm (12/21/2020 9:38 AM CDT) Guaiac occult blood, fecal Positive(A ) Negative MADDI HOFF ([place]) Stool 12/21/2020 9:38 AM CDT 12/21/2020 11:04 AM CDT us Wayne Snow MD LAB BODY FLUIDS AND STOOLS ORDERABLES Final Result MADDI HOFF ([place]) [address] [facility] [place] [address] * (ABNORMAL) POCT glucose (12/21/2020 8:44 AM CDT) Glucose, POC 109(H) 71 - 98 mg/dL MADDI HOFF ([place]) Blood specimen (specimen) 12/21/2020 8:44 AM CDT 12/21/2020 8:44 AM CDT Wayne Snow MD LAB POCT ORDERABLES - DEVIC E Final Result Performing Organization Address City/[facility]/ZIP Co de Phone Number MADDI HOFF ([place]) [address] [facility] [place] [address] * eGFR (12/21/2020 7:38 AM CDT) eGFR 82 mL/min/1.7 3 m2 MADDI [facility] ([place]) Comment: Interpretive Data Reference Interval Normal ?>/= [...] Snow MD LAB BLOOD ORDERABLES Final Result [facility] ([place]) [address] [facility] [place] [address] * (ABNORMAL) Basic metabolic panel (12/21/2020 7:38 AM CDT) Sodium 136 135 - 145 mmol/L [facility] ([place]) Potassium, pl 3.1(L) 3.3 - 4.9 mmol/L [facility] ([place]) Chloride 99 97 - 110 mmol/L [facility] ([place]) CO2 28 22 - 32 mmol/L [facility] ([place]) Anion gap 9 2 - 15 mmol/L [facility] ([place]) BUN 25 8 - 25 mg/dL [facility] ([place]) Creatinine 0.67 0.60 - 1.10 mg/dL [facility] ([place]) Glucose 110 70 - 199 mg/dL [facility] ([place]) [...] Final Re sult [facility] ([place]) [address] [facility] [employer] [place] [place] [address] * (ABNORMAL) CBC without differential (12/21/2020 7:38 [...] NRBC abs 0.05(H) 0.00 - 0.01 K/cumm [facility] ([place]A) Blood specimen (specimen) 12/21/2020 7:38 AM CDT 12/21/2020 7:40 AM CDT us Carli Pozo MD LAB BLOOD ORDERABLES Final Re sult MADDI HOFF (ARABELLA) [address] [facility] [place] [place] [address] * Transfuse plasma Standard plasma (12/21/2020 7:14 AM CDT) Blood specimen (specimen) Julio Mccabe MD BLOOD TRANSFUSION ORDERABLE S Final Result Performing Organization Address City/[facility]/ZIP Co de Phone Number MADDI HOFF (ARABELLA) 1 [facility] [place] [place] [address] * Prepare plasma (12/21/2020 6:42 AM CDT) Unit Number [id number] [facility] ER [facility] ([place]A) Product code [id number] [facility] ([place]) Blood Expiration Date [facility] ([place]) Product Blood Type (for scanning) 5100 [facility] ([place]) Product Blood Type OPOS [facility] ([place]) Dispense Status DISPENSED [facility] ([place]) us Julio Mccabe MD BLOOD BANK PRODUCT ORDERABL ES Final Result Performing Organization Address [facility] Co de Phone Number [facility] (AR[place]LLA) 1 [facility] [place] [employer] [place] [address] * (ABNORMAL) POCT glucose (12/21/2020 2:34 AM CDT) Glucose, POC 143(H) 71 - 98 mg/dL [facility] ([place]) Blood specimen (specimen) 12/21/2020 2:34 AM CDT 12/21/2020 2:34 AM CDT Wayne Snow MD LAB POCT ORDERABLES - DEVIC E Final Result [facility] ([place]A) 1 [place] [address] * Prepare plasma (12/21/2020 1:58 AM CDT) Unit Number [id number] [facility] ([place]) Product code [id number] [facility] ([place]) Blood Expiration Date [id number] ANNA MARIENER [facility] ([place]A) Product Blood Type (for scanning) 5100 [facility] ([place]) Product Blood Type OPOS [facility] ([place]) Dispense Status DISPENSED ANNA MARIENER [facility] ([place]) Julio Mccabe MD BLOOD BANK PRODUCT ORDERABL ES Final Result Performing Organization Address [facility] Co de Phone Number [facility] (ARAB[place]LLA) [address] [facility] [employer] [place] [place] [address] * Prepare plasma: 2 Units Standard plasma (12/20/2020 11:36 PM CDT) Plasma # of units / Ready 2 ANNA MARIENER [facility] (ARABELLA) Plasma # of units / Ready Ready [facility] (ARAB[place]LLA) Blood specimen (specimen) (Blood, Venous) 12/20/2020 11:36 PM CDT 12/20/2020 11:36 PM CDT Narrative MADDI HOFF (ARAB[place]LLA) - 12/21/2020 6:44 AM CDT Is this plasma order intended for a COVID-19 patient as convalescent plasma?->Standard plasma Special Requirements Needed?->No us Julio Mccabe MD BLOOD BANK PRODUCT ORDERABL ES Final Result Performing Organization Address [facility] Co de Phone Number MADDI HOFF (ARABELLA) 1 [facility] [place] [address] * (ABNORMAL) Differential, auto (12/20/2020 11:23 PM [...] Eosinophil pct 1.7 % CERNE R [facility] (ARAEBLLA) Comment: Interpretive Data Percent cell count reference [...] BLOOD ORDERABLES Final Result MADDI LUIS EDUARDO ([place]) [address] [facility] [place] [address] * (ABNORMAL) CBC with auto differential (12/20/2020 [...] ORDERABLES Final Result [facility] (ARABELLA) [address] [facility] [place] [address] * MD CRITICAL CARE ILL/INJURED PATIENT INIT 30-74 MIN [...] ??PSH cade hernia ike 100 ml optiray [id number] g r FA Duration: 3 days TECHNIQUE: [...] signed by Deborah Garcia M.D. TS: SHANNON D: ??12/20/2020 7:38 PM T: ??12/20/2020 7:38 PM Report ID: [id number] Reading Location: ??[id number] Procedure Note Deborah Garcia MD - 12/20/2020 EXAM DESCRIPTION: CT ABDOMEN PELVIS W CONTRAST REASON FOR STUDY: asthma, PNA, CAD, CHF, A-fib, HTN, HLD, and DM who presents to the ED via EMS and accompanied by her daughter c/o generalized weakness for approximately 3 days PSH cade hernia ike 100 ml [id number] g r FA Duration: 3 days TECHNIQUE: [...] Deborah Garcia M.D. TS: SHANNON Report ID: [id number] Reading Location: [place] [address] Julio Mccabe MD IMG CT PROCEDURES Final Res ult * ABO / Rh Confirmation Testing (12/20/2020 6:25 PM CDT) ABO/Rh Confirmation O Positive [facility] ([place]A) Blood specimen (specimen) 12/20/2020 6:25 PM CDT 12/20/2020 6:25 PM CDT Julio Mccabe MD LAB BLOOD ORDERABLES Final Result Performing Organization Address [facility] Co de Phone Number ANNA MARIENER [facility] (AR[place]LLA) [address] [facility] [employer] [place] [place] [address] * Prepare RBC: 1 Units (12/20/2020 6:23 PM CDT) Units requested 1 [facility] ([place]) Units requested Ready [facility] ([place]) Unit Number [id number] [facility] ([place]) Product code [id number] [facility] ([place]) Blood Expiration Date [facility] ([place]) Product Blood Type (for scanning) 5100 [facility] ([place]) Product Blood Type OPOS [facility] ([place]) Dispense Status DISPENSED [facility] ([place]) Blood specimen (specimen) 12/20/2020 6:23 PM CDT 12/20/2020 6:23 PM CDT Julio Mccabe MD BLOOD BANK PRODUCT ORDERABL ES Final Result Performing Organization Address [facility] Co de Phone Number ANNA MARIENER [facility] ([place]A) [address] [facility] [employer] [place] [place] [address] * Crossmatch (12/20/2020 6:20 PM CDT) Crossmatch Compatible ANNA MARIENER A [facility] (AR[place]ELLA) Unit number for crossmatch [id number] ANNA MARIENER [facility] ([place]) Blood specimen (specimen) 12/20/2020 6:20 PM CDT 12/20/2020 6:23 PM CDT Julio Mccabe MD LAB BLOOD BANK TEST ORDERAB LES Final Result MADDI HOFF (ARABELLA) [address] [facility] [place] [address] * COVID-19 Coronavirus RNA Nasopharyngeal (12/20/2020 5:57 PM CDT) Pathologist [facility] COVID-19 RNA Negative Negative MADDI HOFF (ARABELLA) Comment: Interpretive data: Synonyms for this test include: PCR and NAAT . ??This test is performed using the [employer] Xpert Xpress assay. This is a real-time [...] MADDI HOFF (ARABELLA) status? No CE RNCARSON HOFF (ARABELLA) Group care resident? Yes MADDI HOFF (ARABELLA) Hospitalized? Yes MADDI HOFF (ARABELLA) Is patient in ICU? No C MARLEN HOFF (ARABELLA) Symptomatic as defined by CDC? No MADDI [facility]OFF (AR[place]LLA) Nasopharyngeal 12/20/2020 5: 57 PM CDT 12/20/2020 6:00 PM CDT Narrative ANNA MARIEKIRSTIN LUIS EDUARDO (ARABELLA) - 12/20/2020 6:54 PM CDT What is the reason for testing?->Screening prior to urgent surgery, procedure, BMT, immunosuppressive therapy Neeta Patel MD LAB MICROBIOLOGY - GENERAL ORDERABLES Final Result MADDI HOFF (AR[place]LLA) [address] [facility] [place] [place] [address] * (ABNORMAL) Vitamin B12 (12/20/2020 5:39 PM CDT) [facility] Vitamin B12 1,770(H) 230 - 1,250 pg/mL [facility] (ARABELLA) Comment:Testing performed by : [facility], [address] [place] [address], [place]., [address] Blood specimen (specimen) 12/20/2020 5:39 PM CDT 12/21/2020 9:11 AM CDT us Wayne Snow MD LAB BLOOD ORDERABLES Final Result [facility]DI [facility] (AR[place]LLA) 1 [facility] [place] [employer] [place] [address] * (ABNORMAL) Iron profile w/ IBC (12/20/2020 5:39 PM CDT) Iron 75 35 - 145 mcg/dL [facility] ([place]) TIBC 426(H) 250 - 400 mcg/dL [facility] ([place]) Transferrin saturation 18(L) 20 - 50 % [facility] (AR[place]LLA) Blood specimen (specimen) 12/20/2020 5:39 PM CDT 12/20/2020 5:44 PM CDT us Wayne Snow MD LAB BLOOD ORDERABLES Final Result Performing Organization Address [facility] Co de Phone Number MADDI HOFF (ARABELLA) 1 [facility] [place] [employer] [place] [address] * Ferritin (12/20/2020 5:39 PM CDT) Ferritin 48 15 - 150 ng/mL [facility] (AR[place]) Blood specimen (specimen) 12/20/2020 5:39 PM CDT 12/20/2020 5:44 PM CDT us Wayne Snow MD LAB BLOOD ORDERABLES Final Result Performing Organization Address City/[facility]/ZIP Co de Phone Number MADDI HOFF (ARABELLA) 1 [facility] [place] [employer] [place] [address] * ABO / Rh Confirmation Testing (12/20/2020 4:35 PM CDT) ABO/Rh Confirmation O Positive [facility] ([place]) Blood specimen (specimen) 12/20/2020 4:35 PM CDT 12/20/2020 5:51 PM CDT Julio Mccabe MD LAB BLOOD ORDERABLES Final Result [facility] ([place]A) 1 [facility] [place] [employer] [place] [address] * Antibody screen (12/20/2020 4:35 PM CDT) Devora, indirect, Gel Interpretation Negative ABSC [facility] (ARABELLA) Blood specimen (specimen) 12/20/2020 4:35 PM CDT 12/20/2020 4:41 PM CDT Narrative MADDI HOFF (ARAB[place]LLA) - 12/20/2020 5:47 PM CDT Has the patient had Daratumumab or Isatuximab in the past 6 months?->Unknown Julio Mccabe MD LAB BLOOD BANK TEST ORDERAB LES Final Result Performing Organization Address [facility] Co de Phone Number MADDI HOFF (ARABELLA) [address] [place] [address] [place] [address] * ABO/Rh (12/20/2020 4:35 PM CDT) ABO/Rh O Positive MADDI [facility] (ARABELLA) Blood specimen (specimen) 12/20/2020 4:35 PM CDT 12/20/2020 4:41 PM CDT Narrative MADDI HOFF (AR[place]LLA) - 12/20/2020 5:47 PM CDT Has the patient had Daratumumab or Isatuximab in the past 6 months?->Unknown Julio Mccabe MD LAB BLOOD BANK TEST ORDERAB LES Final Result MADDI HOFF (AR[place]LLA) 1 [facility] [place] [place] [address] * (ABNORMAL) Reticulocyte Count (12/20/2020 4:35 PM CDT) Retics, absolute 0.208(H) 0.020 - 0.087 M/cumm [facility]DI [facility] (ARABELLA) Retics 6.0(H) 0.4 - 2.9 % [facility] ([place]A) Reticulocyte Hgb 18.2(L) 30.5 - 38.0 pg [facility] ([place]LLA) Blood specimen (specimen) 12/20/2020 4:35 PM CDT 12/20/2020 4:41 PM CDT Julio Mccabe MD LAB BLOOD ORDERABLES Final Result Performing Organization Address [facility]/ZIP Co de Phone Number [facility] (AR[place]LLA) 1 [place] [address] * Sepsis Lactate w/ Reflex (12/20/2020 4:35 PM CDT) Pathologist [facility] Sepsis Lactate 1.2 0.7 - 2.0 mmol/L MADDI [facility] ([place]A) Blood specimen (specimen) 12/20/2020 4:35 PM CDT 12/20/2020 4:41 PM CDT Julio Mccabe MD LAB BLOOD ORDERABLES Final Result MADDI [facility] ([place]LLA) 1 [place] [address] * (ABNORMAL) Urine culture Urine, bladder (12/20/2020 4:27 PM CDT) Pathologist [facility] Report Final Report: Greater than or equal to 100,000 colonies/mL of Pseudomonas aeruginosa Greater than or equal to 100,000 colonies/mL of Enterococcus faecalis Greater than or equal to 100,000 colonies/mL of Enterococcus faecalis #2 (.) MADDI HOFF (ARABELLA) Comment:Testing performed by : [facility], 1 [place] [address] Organism PSEUDOMONAS AERUGINOSA MADDI [facility] (ARABELLA) Organism ENTEROCOCCUS FAECALIS [facility] (ARAB[place]LLA) Organism ENTEROCOCCUS FAECALIS MADDI [facility] (AR[place]A) Urine, bladder 12/20/2020 4: 27 PM CDT 12/20/2020 8:19 PM CDT Narrative MADDI [facility] (AR[place]LLA) - 12/24/2020 3:18 PM CDT Urine culture reflexed based upon urinalysis results. Testing performed by [facility] ([phone]) Organism Antibiotic Method Susceptibility Pseudomonas aeruginosa Aztreonam [...] LAB MICROBIOLOGY - GENERAL ORDERABLES Final Result ANNA MARIEKIRSTIN HOFF (ARABELLA) [address] [facility] Department of Laboratories [place], [place] [id number] * (ABNORMAL) Urinalysis, microscopic only (12/20/2020 4:27 PM CDT) WBC, ur >50(A) 0 - 5 /HPF [facility] ([place]) RBC, ur 21-50(A) 0 - 2 /HPF [facility] (AR[place]) Bacteria, ur 1+(A) [facility] (AR[place]LLA) Mucous, ur Present(A) CERNER Heidy (ARABELLA) Culture Reflex Comment Reflex to urine culture will be performed. MADDI HOFF ([place]LLA) Urine, bladder 12/20/2020 4: 27 PM CDT 12/20/2020 4:47 PM CDT us Julio Mccabe MD LAB URINE ORDERABLES Final Result Performing Organization Address City/[facility]/ZIP Co de Phone Number MADDI HOFF ([place]A) [address] [facility] [employer] [place] [place] [address] * (ABNORMAL) Urinalysis reflex to microscopic and culture Urine, bladder (12/20/2020 4:27 PM CDT) Color, ur Yellow Yellow [facility] ([place]A) Clarity, ur Turbid(A) Clear CERNER A [facility] (ARABELLA) Specific gravity, ur 1.007(L) 1.010 - [...] tendency for uric acid stone formation. Source: [employer]. Last revised 05-29-2017 Julio Mccabe MD LAB MICROBIOLOGY - GENERAL ORDERABLES Final Result MADDI HOFF (ARABELLA) [address] [facility] [place] [address] * XR Chest 1 Vw Portable (12/20/2020 [...] PM T: ??12/20/2020 4:42 PM Report ID: [id number] Reading Location: ??[id number] Procedure Note Noah Cuba MD - 12/20/2020 [...] signed by Noah JACKSON: RENETTA Report ID: [id number] Reading Location: [place] [address] us Julio Mccabe MD IMG XR PROCEDURES Final Res ult * eGFR (12/20/2020 4:10 PM CDT) eGFR 65 mL/min/1.7 3 m2 MADDI HOFF (ARABELLA) Comment: [...] BLOOD ORDERABLES Final Result Performing Organization Address [facility] Co de Phone Number MADDI HOFF (AR[place]ELLA) [address] [facility] [place] [address] * (ABNORMAL) Iron profile w/ IBC (12/20/2020 4:10 PM CDT) Iron 50 35 - 145 mcg/dL [facility] ([place]) TIBC 397 250 - 400 mcg/dL [facility] ([place]) Transferrin saturation 13(L) 20 - 50 % [facility] ([place]) Blood specimen (specimen) 12/20/2020 4:10 PM CDT 12/20/2020 4:51 PM CDT us Julio Mccabe MD LAB BLOOD ORDERABLES Final Result MADDI HOFF ([place]A) [address] [facility] [place] [address] * (ABNORMAL) Differential, auto (12/20/2020 4:10 PM [...] Neutrophil pct 74.1 % [facility] R [facility] ([place]) Comment: Interpretive Data Percent cell count reference [...] revised on 2017. Basophil pct 0.3 % MADDI HOFF (AR[place]ELLA) Comment: Interpretive Data Percent cell count reference ranges are not reported, since discordance with absolute values may lead to misinterpretation of CBC data. Current Interpretive Data was last revised on 2017. Blood specimen (specimen) 12/20/2020 4:10 PM CDT 12/20/2020 4:13 PM CDT Julio Mccabe MD LAB BLOOD ORDERABLES Final Result Performing Organization Address [facility] Co de Phone Number MADDI HOFF ([place]) 1 [facility] [place] [place] [address] * Magnesium (12/20/2020 4:10 PM CDT) Pathologist [facility] Magnesium 2.1 1.4 - 2.5 mg/dL MADDI HOFF ([place]) Blood specimen (specimen) 12/20/2020 4:10 PM CDT 12/20/2020 4:13 PM CDT Julio Mccabe MD LAB BLOOD ORDERABLES Final Result Performing Organization Address [facility] de Phone Number MADDI HOFF ([place]ELLA) 1 [facility] [place] [place] [address] * Pro B-type natriuretic peptide (12/20/2020 4:10 [...] Heart J. 2006:27:330-337. 2. Greg RW, Nima AM. J. AM Neetu Cardiol: Cardiovasc Imag. 2009;2: 216- 225. Interpretive Data Last Revised Date: 2018. Blood specimen (specimen) 12/20/2020 4:10 PM CDT 12/20/2020 4:13 PM CDT us Julio Mccabe MD LAB BLOOD ORDERABLES Final Result MADDI [facility]OFF ([place]) [address] [facility] [place] [place] [address] * (ABNORMAL) Troponin T high-sensitivity series (baseline, 2hr, 4hr, 6hr) (12/20/2020 4:10 PM CDT) Trop T hs 21(H) <=14 ng/L MADDI HOFF ([place]) Comment: Interpretive Data For further hscTnT resources including the diagnostic algorithm and an aid in interpretation, copy and paste this link: [email or web address].org/[email or web address] Current Interpretive Data last revised 2020. Blood specimen (specimen) 12/20/2020 4:10 PM CDT 12/20/2020 4:13 PM CDT Julio Mccabe MD LAB BLOOD ORDERABLES Final Result Performing Organization Address [facility] Co de Phone Number MADDI [facility] ([place]) 1 [facility] [place] [address] * (ABNORMAL) Protime-INR (12/20/2020 4:10 PM CDT) PT 19.5(H) 9.5 - 13.6 sec MADDI HOFF ([place]) INR 1.8(H) 0.9 - 1.2 MADDI HOFF ([place]) Comment: Interpretive data Oral anticoagulant therapeutic ranges: Venous thromboembolism prophylaxis or treatment: 2.0-3.0 CARDIOLOGY Standard range: 2.0-3.0 High-intensity range: 2.5-3.5 Refer to indication-specific guidelines for appropriate target ranges for prosthetic heart valve replacement. Current interpretive data was last revised on 2019. Blood specimen (specimen) 12/20/2020 4:10 PM CDT 12/20/2020 4:13 PM CDT Julio Mccabe MD LAB BLOOD ORDERABLES Final Result Performing Organization Address [facility] Co de Phone Number MADDI [facility] ([place]LLA) 1 [facility] [place] [place] [address] * CRP (acute phase) (12/20/2020 4:10 PM CDT) CRP <3.0 <=10.0 mg/L MADDI ARREOLA ([place]) Blood specimen (specimen) 12/20/2020 4:10 PM CDT 12/20/2020 4:13 PM CDT us Julio Mcacbe MD LAB BLOOD ORDERABLES Final Result MADDI HOFF ([place]LLA) [address] [facility] [place] [address] * (ABNORMAL) Comprehensive metabolic panel (12/20/2020 4:10 PM CDT) Sodium 131(L) 135 - 145 mmol/L [facility] ([place]) Potassium, pl 3.1(L) 3.3 - 4.9 mmol/L [facility] ([place]) Chloride 95(L) 97 - 110 mmol/L [facility] ([place]) CO2 26 22 - 32 mmol/L [facility] ([place]) Anion gap 11 2 - 15 mmol/L [facility] ([place]) BUN 37(H) 8 - 25 [...] BLOOD ORDERABLES Final Result Performing Organization Address City/[facility]/ZIP Co de Phone Number [facility] ([place]LLA) [address] [facility] [place] [address] * (ABNORMAL) CBC with auto differential (12/20/2020 [...] RDW CV 17.6(H) 11.1 - 14.9 % [facility] ([place]) RDW SD 47.2 35.7 - 48.1 fL [facility] ([place]) NRBC abs 0.09(H) 0.00 - 0.01 K/cumm [facility] ([place]) Blood specimen (specimen) 12/20/2020 4:10 PM CDT 12/20/2020 4:13 PM CDT us Julio Mccabe MD LAB BLOOD ORDERABLES Final Result MADDI HOFF ([place]) [address] [facility] [place] [address] * ECG 12 lead (12/20/2020 4:09 PM CDT) 12/20/2020 4:09 PM CDT Narrative [facility] - 12/21/2020 10:18 AM CDT Vent Rate: 81 bpm RR Interval: 736 msec MD Interval: 162 msec QRS Duration: 119 msec QT Interval: 326 msec QTC Interval: 363 msec P-R-T [place]: -11 - -39 - 35 degrees Probable [...] ORDERABLES Final Resul t Performing Organization Address [facility] Co de Phone Number [facility] * (ABNORMAL) POCT glucose (12/20/2020 3:15 PM CDT) [facility] Signature Glucose, POC 190(H) 71 - 98 mg/dL ANNA MARIEKIRSTIN HOFF ([place]) Blood specimen (specimen) 12/20/2020 3:15 PM CDT 12/20/2020 3:15 PM CDT us Notinfile Unknown LAB POCT ORDERABLES - DEVICE F inal Result Performing Organization Address [facility] Co de Phone Number MADDI HOFF ([place]) [address] 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 Urinary tract infection associated with indwelling urethral catheter, initial encounter ([facility]) Pressure injury of contiguous region involving back and buttock, stage 2, unspecified laterality ([facility]) Occult blood in stools Nonspecific abnormal finding [...] Coronary atherosclerosis of unspecified type of vessel, [place] or graft HTN (hypertension) Unspecified essential hypertension Occult blood in stools Nonspecific abnormal finding in stool contents Hypophosphatemia Disorders of phosphorus metabolism Constipation Unspecified constipation Pain and swelling of left wrist Constipation, unspecified constipation type documented in this encounter Admitting Diagnoses Diagnosis Anemia Unspecified anemia Occult blood in stools Nonspecific abnormal finding in stool contents documented in this encounter Administered Medications Inactive Administered Medications - up to 3 most recent administrations Medication Order MAR Action Action Date Dose Rate Site acetaminophen (TYLENOL) tablet 500 mg 500 mg, oral, Every 4 hours PRN, 1st line for pain, Starting on Fri12/21/20 at 1022, Indications: PainIndications:Pain Given 12/25/2020 10:51 [...] modification) on Fri12/23/20 at 0900, Indications: atrial fibrillationIndications:atrial fibrillation Given [...] units sq hs units per [facility] protocol. Attach new pen needle required for [...] 12/26/2020 9:57 AM CDT 30 mL multivit wmrydiqe-lkkr-KC-calcium (THERA-M) tablet 1 tablet 1 tablet, oral, [...] mcg tablet Take 25 mcg by mouth muff winder before breakfast 12/21/2020 metOLazone (ZAROXOLYN) 2.5 mg tabletIndications:fri day and TAKE 1 TABLET (2.5 MG TOTAL) [...] mcg tablet Take 50 mcg by mouth muff winder before breakfast Reorder 12/28/2020 aspirin (ASPIRIN LOW [...] mcg tablet Take 50 mcg by mouth muff winder before breakfast 1 SITagliptin (JANUVIA) 100 mg [...] shown in CDT. Scheduled Medication Order 12/26/2020 12/27/202012/2812/28/2020 amitriptyline (ELAVIL) tablet 50 mg 50 mg, oral, Nightly, First dose on Magali 12/21/20 at 2100, Indications: Neuropathic Pain 2031 (Given - Provider: Bonny Boone, DES) 1505 (JUL Hold - Provider: Automatic Transfer Provider - Reason: Patient not available)164 (MAR Unhold - Provider: Automatic Transfer Provider)2015 (Given - Provider: Bonny Boone, DES) amoxicillin (AMOXIL) tablet/capsule 500 mg 500 mg, oral, 3 times daily, First dose on 12/25/20 at 1200, For 5 days, Indications: Urinary Tract/Genitourinary Infection 0958 (Given - Provider: Eva Holland RN)1645 (Given - Provider: Eva Holland RN)2031 (Given - Provider: Bonny Boone, DES) 0839 (Given - Provider: Eva Holland RN)1505 (JUL Hold - Provider: Automatic Transfer Provider - Reason: Patient not available)1600 (Dose Auto Held - Provider: Automatic Transfer Provider)1648 (MAR Unhold - Provider: Automatic Transfer Provider)165 (Given - Provider: Eva Holland RN)2014 (Given - Provider: Bonny Boone RN) 0812 (Given - Provider: Teagan Galicia, DES)1456 (Given - Provider: Teagan Galicia, RN) anastrozole (ARIMIDEX) tablet 1 mg 1 mg, oral, Daily, First dose on Fri12/21/20 at 1400, Indications: prevention of breast cancer in high risk women 0958 (Given - Provider: Eva Holland RN) 0839 (Given - Provider: Eva Holland, DES)1505 (MAR Hold - Provider: Automatic Transfer Provider - Reason: Patient not available)1648 (MAR Unhold - Provider: Automatic Transfer Provider) 0811 [...] Transfer Provider - Reason: Patient not available)1648 ([facility] Unhold - Provider: Automatic Transfer Provider)2015 (Given - Provider: Bonny Boone, DES) 0812 (Given - Provider: Teagan Galicia, DES) bisacodyL (DULCOLAX) suppository 10 mg 10 mg, rectal, Nightly, First dose on Fri12/25/20 at 2100, Indications: constipation 2032 (Given - [...] 0838 (Given - Provider: Eva Holland RN)1505 ([facility] Hold - Provider: Automatic Transfer Provider - Reason: Patient not available)164 ([facility] Unhold - Provider: Automatic Transfer Provider)2015 (Given - Provider: Bonny Boone RN) 0817 (Given - Provider: Teagan Galicia, DES) [...] 0607 (Given - Provider: Bonny Boone, DES)1505 ([facility] Hold - Provider: Automatic Transfer Provider - Reason: Patient not available)1648 ([facility] Unhold - Provider: Automatic Transfer Provider) 0604 (Given - Provider: Bonny Boone, DES) cholecalciferol (VITAMIN D-3) tablet 1,000 Units 1,000 Units, oral, Daily, First dose on Fri12/21/20 at 1400 0957 (Given - Provider: Eva Holland RN) 0839 (Given - Provider: Eva Holland, DES)1505 (JUL Hold - Provider: Automatic Transfer Provider - Reason: Patient not available)1648 (JUL Unhold - Provider: Automatic Transfer Provider) 0812 (Given - Provider: Teagan Galicia, RN) cyanocobalamin (Vitamin B-12) tablet 250 mcg 250 [...] does at home.)2032 (Given - Provider: Bonny Boone, DES) 1245 (Given - Provider: Eva Holland RN - Comment: Pt wanted to take a noon like she does at home)1505 (JUL Hold - Provider: Automatic Transfer Provider - Reason: Patient not available)1648 (JUL Unhold - Provider: Automatic Transfer Provider)2015 (Given - Provider: Bonny Boone, DES) 0824 (Given - Provider: Teagan Galicia, DES) flecainide (TAMBOCOR) tablet 50 mg 50 mg, oral, 2 times daily, First dose on Fri12/21/20 at 1200 0959 (Given - Provider: Eva Holland RN)2032 (Given - Provider: Bonny Boone, RN) 0838 (Given - Provider: Eva Holland RN)1505 (JUL Hold - Provider: Automatic Transfer Provider - Reason: Patient not available)1648 (JUL Unhold - Provider: Automatic Transfer Provider)2015 (Given - Provider: Bonny Boone, RN) 0811 (Given - Provider: Teagan Galicia, DES) furosemide (LASIX) tablet 40 mg 40 mg, oral, Daily, First dose on Magali 12/21/20 at 1200 0958 (Given - Provider: Eva Holland RN) 0838 (Given - Provider: Eva Holland RN)1505 (JUL Hold - Provider: Automatic Transfer Provider - Reason: Patient not available)1648 (JUL Unhold - Provider: Automatic Transfer Provider) 0811 (Given - Provider: Teagan Galicia, RN) insulin glargine (LANTUS, BASAGLAR, SEMGLEE) 100 unit/mL (3 mL) pen injection 8 Units 8 Units, subcutaneous, Every morning, First dose (after last modification) on Magali 12/21/20 at 1200, Dose of Lantus 8 units sq hs insulin automatically reduced by 20% from home dose of Lantus 10 units sq hs units per [facility] protocol. Attach new pen needle required for each administration. Each new pen needle must be primed with 2 units prior to administration. Do not mix with other insulins. 1001 (Given - Provider: Eva Holland RN) 0842 (Given - Provider: Eva Holland RN)1505 (JUL Hold - Provider: Automatic Transfer Provider - Reason: Patient not available)1648 (JUL Unhold - Provider: Automatic Transfer Provider) 0919 (Given - Provider: Teagan Galicia, DES) insulin lispro (HumaLOG, ADMELOG) 100 unit/mL pen [...] - Reason: Order parameters not met) 1505 ([facility] Hold - Provider: Automatic Transfer Provider - Reason: Patient not available)1648 ([facility] [place] Unhold - Provider: Automatic Transfer Provider)2134 (Given - Provider: Bonny Boone RN) insulin lispro (HumaLOG, ADMELOG) 100 unit/mL pen injection 1-5 Units 1-5 Units, subcutaneous, 3 times daily with meals, First dose on Fri12/21/20 at 1800, Blood Sugar Mid Dose meal [...] RN - Reason: Order parameters not met)1505 ([facility] [place] Hold - Provider: Automatic Transfer Provider - Reason: Patient not available)1648 ([facility] Unhold - Provider: Automatic Transfer Provider)1730 (Not Given - Provider: Eva Holland RN - Reason: Order parameters not met) 0920 (Given - Provider: Teagan Galicia, DES)1346 (Given - Provider: Teagan Galicia, DES) levothyroxine (SYNTHROID) tablet 75 mcg 75 mcg, oral, Daily (early AM), First dose (after last modification) on Fri12/22/20 at 0600, Administer on an empty stomach, preferably 30 minutes before breakfast. Take 4 hours apart from antacids, iron and calcium products. 0607 (Given - Provider: Bonny Boone RN) 0606 (Given - Provider: Bonny Boone, DES)1505 ([facility] [place] Hold - Provider: Automatic Transfer Provider - Reason: Patient not available)1648 ([facility] [place] Unhold - Provider: Automatic Transfer Provider) 0603 [...] 0606 (Given - Provider: Bonny Boone RN)1505 ([facility] [place] Hold - Provider: Automatic Transfer Provider - Reason: Patient not available)1648 ([facility] [place] Unhold - Provider: Automatic Transfer Provider) 0603 (Given - Provider: Bonny Boone RN) magnesium citrate oral solution 296 mL (COMPLETED) 296 mL, oral, Once, On Fri12/26/20 at 2200, For 1 dose 2123 (Given - Provider: Bonny Boone, DES) magnesium hydroxide (MILK OF MAGNESIA) 80 mg/mL (33.3 mg/mL as elemental magnesium) oral suspension 30 mL 30 mL, oral, Daily, First dose on Fri12/26/20 at 0900 0957 (Given - Provider: Eva Holland RN) 0838 (Given - Provider: Eva Holland RN)1505 ([facility] [place] Hold - Provider: Automatic Transfer Provider - Reason: Patient not available)1648 ([facility] [place] Unhold - Provider: Automatic Transfer Provider) 0812 (Given - Provider: Teagan Galicia RN) multivit vwrzznvd-wajb-SG-calcium (THERA-M) tablet 1 tablet 1 tablet, oral, Daily, First dose on Fri12/21/20 at 1400 0958 (Given - Provider: Eva Holland RN) 0838 (Given - Provider: Eva Holland RN)1505 ([facility] [place] Hold - Provider: Automatic Transfer Provider - Reason: Patient not available)1648 ([facility] [place] Unhold - Provider: Automatic Transfer Provider) 0812 (Given - Provider: Teagan Galicia, RN) pantoprazole DR (PROTONIX) extended release tablet 40 mg 40 mg, oral, Daily, First dose (after last modification) on Fri12/22/20 at 0900, Do not crush, chew, cut, dissolve, open or otherwise manipulate tablet/capsule., Indications: Treatment of Non-Bleeding Gastric Disorder 0958 (Given - Provider: Eva Holland RN) 0839 (Given - Provider: Eva Holland RN)1505 ([facility] [place] Hold - Provider: Automatic Transfer Provider - Reason: Patient not available)1648 ([facility] [place] Unhold - Provider: Automatic Transfer Provider) 0812 (Given - Provider: Teagan Galicia, DES) potassium chloride ER (KLOR-CON) extended release tablet 20 mEq 20 mEq, oral, 4 times daily, First dose (after last reorder) on Fri12/21/20 at 1730, Do not crush, chew, cut, dissolve, open or otherwise manipulate tablet/capsule. 0958 (Given - Provider: Eva Holland RN)1233 (Given - Provider: Eva Holland RN)1645 (Given - Provider: Eva Holland RN)2032 (Given - Provider: Bonny Boone, DES) 0839 (Given - Provider: Eva Holland RN)1245 (Given - Provider: Eva Holland RN)1505 ([facility] [place] Hold - Provider: Automatic Transfer Provider - Reason: Patient not available)1648 ([facility] [place] Unhold - Provider: Automatic Transfer Provider)1658 (Given - Provider: Eva Holland, DES)2016 (Given - Provider: Bonny Boone, DES) 0812 (Given - Provider: Teagan Galicia, DES)1346 (Given - Provider: Teagan Galicia, DES) rosuvastatin (CRESTOR) tablet 10 mg 10 mg, oral, Nightly, First dose on Fri12/21/20 at 1330 2032 (Given - Provider: Bonny Boone, DES) 1505 ([facility] [place] Hold - Provider: Automatic Transfer Provider - Reason: Patient not available)1648 ([facility] [place] Unhold - Provider: Automatic Transfer Provider)2015 (Given - Provider: Bonny Boone RN) sodium chloride 0.9% flush 0.5-20 mL 0.5-20 mL, intra-catheter, Every 12 hours, First dose (after last modification) on Fri12/25/20 at 2100, Flush volume based on line type and size. 1002 (Given - Provider: Eva Holland RN)2033 (Given - Provider: Bonny Boone, DES) 0842 (Given - Provider: Eva Holland, DES)1505 ([facility] [place] Hold - Provider: Automatic Transfer Provider - Reason: Patient not available)1648 ([facility] [place] Unhold - Provider: Automatic Transfer Provider)2016 (Given - Provider: Bonny Boone, DES) 0930 (Given - Provider: Teagan Galicia, DES) spironolactone (ALDACTONE) tablet 25 mg 25 mg, oral, Daily, First dose on Fri12/21/20 at 1200 0957 (Given - Provider: Eva Holland, DES) 0839 (Given - Provider: Eva Holland RN)1505 ([facility] [place] Hold - Provider: Automatic Transfer Provider - Reason: Patient not available)1648 ([facility] [place] Unhold - Provider: Automatic Transfer Provider) 0812 (Given - Provider: Teagan Galicia, DES) verapamil SR (CALAN SR) extended release tablet 120 mg 120 mg, oral, Nightly, First dose on Fri12/21/20 at 2100, Tablets that are scored may be split, but do not crush, chew, dissolve, open or otherwise manipulate tablet/capsule. 2031 (Given - Provider: Bonny Boone RN) 1505 ([facility] [place] Hold - Provider: Automatic Transfer Provider - Reason: Patient not available)1648 ([facility] [place] Unhold - Provider: Automatic Transfer Provider)2014 (Given - Provider: Bonny Boone RN) Continuous Medication Order 12/26/2020 12/27/2020 12/28/2020 sodium chloride 0.9% infusion (CANCELED) 30 mL/hr, intravenous, Continuous, Starting on Fri12/27/20 at 1600, Pre-Procedure (GI) 1520 (New Bag - Provider: Mason Khan, RN)1540 (Rate/Dose Verify - Provider: Neeta Patel MD)1554 (Stopped - Provider: Sejal Carrizales CRNA) PRN Medication Order 12/26/2020 12/27/2020 12/28/2020 acetaminophen (TYLENOL) tablet 500 mg 500 mg, oral, Every 4 hours PRN, 1st line for pain, Starting on Fri12/21/20 at 1022, Indications: Pain 1505 (JUL Hold - Provider: Automatic Transfer Provider - Reason: Patient not available)1648 ([facility] [place] Unhold - Provider: Automatic Transfer Provider) ALPRAZolam (XANAX) tablet 0.25 mg 0.25 mg, oral, 2 times daily PRN, anxiety, Starting on Fri12/24/20 at 0756 1505 ([facility] [place] Hold - Provider: Automatic Transfer Provider - Reason: Patient not available)1648 ([place] Unhold - Provider: Automatic Transfer Provider)2024 (Given [...] episode of hypoglycemia., Indications: hypoglycemic disorder 1505 ([place] Hold - Provider: Automatic Transfer Provider - Reason: Patient not available)1648 ([facility] [place] Unhold - Provider: Automatic Transfer Provider) dextrose [...] episode of hypoglycemia., Indications: hypoglycemic disorder 1505 ([facility] [place] Hold - Provider: Automatic Transfer Provider - Reason: Patient not available)1648 ([facility] [place] Unhold - Provider: Automatic Transfer Provider) docusate sodium (COLACE) capsule 100 mg 100 mg, oral, 2 times daily PRN, constipation, Starting on Fri12/22/20 at 0801, Indications: constipation 0607 (Given - Provider: Bonny Boone, DES) 0606 (Given - Provider: Bonny Boone RN)1505 ([facility] [place] Hold - Provider: Automatic Transfer Provider - Reason: Patient not available)1648 ([facility] [place] Unhold - Provider: Automatic Transfer Provider)202 (Given - Provider: Bonny Boone, DES) 0603 (Given - Provider: Bonny Boone RN) [...] Use immediately following reconstitution., Indications: Hypoglycemia 1505 ([facility] [place] Hold - Provider: Automatic Transfer Provider - Reason: Patient not available)1648 ([facility] [place] Unhold - Provider: Automatic Transfer Provider) ondansetron ODT (ZOFRAN-ODT) disintegrating tablet 4 mg 4 mg, oral, Every 4 hours PRN, nausea, vomiting, Starting on Fri12/25/20 at 1224 1505 ([facility] [place] Hold - Provider: Automatic Transfer Provider - Reason: Patient not available)1648 ([facility] [place] Unhold - Provider: Automatic Transfer Provider) senna-docusate (PERICOLACE) 8.6-50 mg per tablet 1 tablet 1 tablet, oral, 2 times daily PRN, constipation, Starting on 12/25/20 at 0749 0607 (Given - Provider: Bonny Boone, RN) 0606 (Given - Provider: Bonny Boone, RN)1505 ([facility] [place] Hold - Provider: Automatic Transfer Provider - Reason: Patient not available)1648 ([facility] [place] Unhold - Provider: Automatic Transfer Provider) 0603 (Given - Provider: Bonny Boone, RN) sodium chloride 0.9% flush 0.5-20 mL 0.5-20 mL, intra-catheter, As needed, line care, Starting on Fri12/22/20 at 1010, Flush volume based on line type and size. Flush before and after each use. 1505 ([facility] [place] Hold - Provider: Automatic Transfer Provider - Reason: Patient not available)1648 ([facility] [place] Unhold - Provider: Automatic Transfer Provider) Linked [...] 12/21/2020 linaCLOtide (LINZESS) capsule 72 mcg 1 08/0 09/2020 multivit rfxqwxqh-cwet-GJ-ca lcium (THERA-M) tablet 1 tablet 1 12/21/2020 [...] documented as of this encounter Care Teams Nub Card Tender Relationship Specialty Start Date End Date Destiney Camargo MD PCP - General 09/29/18 12/05/22 Landon Valencia MD Consulting Physician Cardiology 03/22/19 12/05/22 Migue Herman MD Consulting Physician Urology 05/16/19 Sonny Palmer MD Surgeon General Surgery 05/16/19 documented as of this encounter
--- OUTSIDE RECORDS SUMMARY | 2024-05-26 13:00 | XMS_ITS | Encounter Summary ---
Author Organization [facility] Address [address] [place] [address] Care Team Providers Care Marine Electrician Name Role Phone Theresa Camargo MD Primary Care Provider Laz Valencia MD Unavailable [phone] Migue Herman MD Unavailable [phone] Sonny Palmer MD Unavailable [phone] Encounter Details Date Type Department Care Team (Late st Contact Info) Description 12/20/[address] 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 She is followed with our service * Telephone Encounter - Brandon Briones MA - 12/21/2020 8:18 AM CDT Reminder to review chart. Patients daughter sent a message stating Perla was admitted for anemia. * Telephone Encounter - Laz Valencia MD - 12/20/2020 3:24 PM CDT Remind me to review chart tomorrow to see what ED physician decided to do * Telephone Encounter - Brandon Briones MA - 12/20/2020 2:44 PM CDT Patients home health nurse called with an FYI that patients BP today at her visit was 107/47 p 80 and that the patient had passed out after standing. She was sent to the ER at [facility] for evaluation. Please advise if you want to change or add anything. documented in this encounter Plan of Treatment Not on file documented as of this encounter Visit Diagnoses Not on filedocumented in this encounter Additional Health Concerns Infection Onset Date Last Indicated Resolved Time COVID: Suspected 12/20/2020 12/20/2020 12/20/2020 6:55 PM CDT documented as of this encounter Care Teams Marine Electrician Relationship Specialty Start Date End Date Theresa Camargo MD PCP - General 09/29/18 12/05/22 Laz Valencia MD Consulting Physician Cardiology 03/22/19 12/05/22 Migue Herman MD Consulting Physician Urology 05/16/19 Sonny Palmer MD Surgeon General Surgery 05/16/19 documented as of this encounter
--- OUTSIDE RECORDS SUMMARY | 2024-05-26 13:01 | XMS_ITS | Encounter Summary ---
Author Organization [facility] Medical [facility] Address [address] [place] [address] Care Team Providers Care Gas Meter Mechanic Name Role Phone Theresa Camargo MD Primary Care Provider [phone] Laz Valencia MD Unavailable [phone] Reason for Visit * Reason Onset Date Comments Med Management 04/26/2019 Encounter Details Date Type Department Care Team (Late st Contact Info) Description 04/26/2019 Telephone [place] [employer] Weapons Officer [address] [facility] [address] [place] [address] Laz Valencia MD [address] [place] [address] [address] [place] [address] Med Management Social History Tobacco Use Types Packs/Day Years Used Date Smoking Tobacco: Never Smokeless Tobacco: Never Alcohol Use Standard Drinks/Week Comments No 0 (1 standard drink = 0.6 oz pur e alcohol) PHQ-2 Answer Date Recorded PHQ-2 Score 0 03/06/2019 Comments No Sex and Gender Information Value Date Recorded Sex Assigned at Not on file 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 Check BMP next week ECTIONS LIEUTENANT * Telephone Encounter - Gabby Narvaez MA - 04/26/2019 3:42 PM CST [facility] called to report an interaction with pt's meds potassium and aldactone. Please Advise Eric [phone] ECTIONS LIEUTENANT documented in this encounter Plan of Treatment Not on file documented as of this encounter Visit Diagnoses Not on filedocumented in this encounter Care Teams Gas Meter Mechanic Relationship Specialty Start Date End Date Theresa Camargo MD PCP - General 09/29/18 12/05/22 Laz Valencia MD Consulting Physician Cardiology 03/22/19 12/05/22 documented as of this encounter
--- OUTSIDE RECORDS SUMMARY | 2024-05-26 13:01 | XMS_ITS | Encounter Summary ---
Author Organization [facility] Healthcare Address [address] [place] [address] Care Team Providers Care Brush Machine Setter Name Role Phone Theresa Camargo MD Primary Care Provider Laz Valencia MD Unavailable [phone] Migue Herman MD Unavailable [phone] Sonny Palmer MD Unavailable [phone] Reason for Visit * Reason Comments Urinary Problem Encounter Details Date Type Department Care Team (Latest Contact Info) Description 05/13/2019 1:03 PM ATTORNEY LAWYER - 05/16/2019 1:37 PM [facility] Hospital Encounter [facility] Medical Care 1 [facility] [place] [address] Kelly Garcia MD [address] [place] [address] [place] [address] Leslie Larsen MD [address] [place] [address] [place] [address] Gay Escudero MD [address] [place] [address] Emphysematous cystitis (Primary Dx); Leukocytosis, unspecified type; Multiple falls; Chronic diastolic congestive heart failure (CMS/HCC) Discharge Disposition: Discharge to home, home health [...] on file Legal Sex Female 6:56 PM ATTORNEY LAWYER Gender Identity Not on file Sexual Orientation Not on file documented as of this encounter Last Filed Vital Signs Vital Sign Reading Time Taken Comments Blood Pressure 112/65 05/16/2019 7:55 AM ATTORNEY LAWYER Pulse 71 05/16/2019 7:55 AM ATTORNEY LAWYER Temperature 36.1 ??C (97 ??F) 05/16/2019 7:55 AM ATTORNEY LAWYER Respiratory Rate 18 05/16/2019 7:55 AM ATTORNEY LAWYER Oxygen Saturation 93% 05/16/2019 7:55 AM ATTORNEY LAWYER Inhaled Oxygen Concentration - - Weight 80.8 kg (178 lb 3.2 oz) 05/13/2019 7:46 P M ATTORNEY LAWYER Height 165.1 cm (5' 5 ) 05/13/2019 7:46 PM ATTORNEY LAWYER Body Mass Index 29.65 05/13/2019 7:46 PM ATTORNEY LAWYER documented in this encounter Discharge Diagnoses Diagnosis Other cystitis without hematuria - OTHER CYSTITIS WITHOUT HEMATURIA Chronic diastolic (congestive) heart failure (HCC) - CHRONIC DIASTOLIC (CONGESTIVE) HEART FAILURE 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, unspecified - NEUROMUSCULAR DYSFUNCTION OF BLADDER, UNSPECIFIED keno terminal operator (current) use of antithrombotics/antiplatelets - BUNCHER MACHINE (CURRENT) USE OF ANTITHROMBOTICS/ANTIPLATELETS Hormone replacement therapy - HORMONE REPLACEMENT THERAPY Family history of malignant neoplasm of breast - FAMILY HISTORY OF MALIGNANT NEOPLASM OF BREAST Family history of ischemic heart disease and other diseases of the circulatory system - FAMILY HISTORY OF ISCHEMIC HEART DISEASE AND OTHER DISEASES OF THE CIRCULATORY SYSTEM Personal history of transient ischemic attack (TIA), and cerebral infarction without residual deficits - PERSONAL HISTORY OF TRANSIENT ISCHEMIC ATTACK (TIA), AND CEREBRAL INFARCTION WITHOUT RESIDUAL DEFICI Acquired absence of other specified parts of digestive tract - ACQUIRED ABSENCE OF OTHER SPECIFIED PARTS OF DIGESTIVE TRACT Acquired absence of both cervix and uterus - ACQUIRED ABSENCE OF BOTH CERVIX AND UTERUS Acquired absence of ovaries, bilateral - ACQUIRED ABSENCE OF OVARIES, BILATERAL Constipation, unspecified - CONSTIPATION, UNSPECIFIED Unspecified asthma, uncomplicated - UNSPECIFIED ASTHMA, UNCOMPLICATED Lymphedema, not elsewhere classified - LYMPHEDEMA, NOT ELSEWHERE CLASSIFIED Paroxysmal atrial fibrillation ([facility]) ([facility]) - PAROXYSMAL ATRIAL FIBRILLATION Atrial fibrillation Atherosclerotic heart disease of [place] coronary artery without angina pectoris - ATHEROSCLEROTIC HEART DISEASE OF [place] CORONARY ARTERY WITHOUT ANGINA PECTORIS Hypertensive heart disease with heart failure ([facility]) ([facility]) - HYPERTENSIVE HEART DISEASE WITH HEART FAILURE Unspecified hypertensive heart disease with heart failure Obstructive sleep apnea (adult) (pediatric) - OBSTRUCTIVE SLEEP APNEA (ADULT) (PEDIATRIC) Hyperlipidemia, unspecified - HYPERLIPIDEMIA, UNSPECIFIED Type 2 diabetes mellitus without complications ([facility]) ([facility]) - TYPE 2 DIABETES MELLITUS WITHOUT COMPLICATIONS Proteus (mirabilis) (morganii) as the cause of diseases classified elsewhere - PROTEUS (MIRABILIS) (MORGANII) THE CAUSE OF DISEASES CLASSIFIED ELSEWHERE Unilateral inguinal hernia, without obstruction or gangrene, not specified as recurrent - UNILATERAL INGUINAL HERNIA, WITHOUT OBSTRUCTION OR GANGRENE, NOT SPECIFIED RECURRENT Gastro-esophageal reflux disease without esophagitis - GASTRO-ESOPHAGEAL REFLUX DISEASE WITHOUT ESOPHAGITIS Unspecified osteoarthritis, unspecified site - UNSPECIFIED OSTEOARTHRITIS, UNSPECIFIED SITE keno terminal operator (current) use of oral hypoglycemic drugs - SKILLED NURSING (CURRENT) USE OF ORAL HYPOGLYCEMIC DRUGS Other superintendent marine oil terminal (current) drug therapy - OTHER SKILLED NURSING (CURRENT) DRUG THERAPY Weakness - WEAKNESS Other malaise and fatigue Other mechanical complication of indwelling urethral catheter, initial encounter ([facility]) - OTHER MECHANICAL COMPLICATION OF INDWELLING URETHRAL CATHETER, INITIAL ENCOUNTER Miscellaneous gastroenterology and urology devices associated with adverse incidents, not elsewhere classified - MISCELLANEOUS GASTROENTEROLOGY AND UROLOGY DEVICES ASSOCIATED WITH ADVERSE INCIDENTS, NOT ELSEWHERE documented in this encounter Discharge Summaries * Gay Escudero MD - 05/16/2019 12:04 PM CST Inpatient Discharge Summary BRIEF OVERVIEW Admitting Provider: Leslie Larsen MD Discharge Provider: Gay Escudero MD Primary Care Physician at Discharge: Theresa Camargo MD [phone] Admission Date: 05/13/2019 Discharge Date: 05/16/2019 Admission Location: [facility] Primary Discharge Diagnosis: UTI Secondary Discharge Diagnosis: Cystitis Weakness generalized DM (diabetes mellitus) (CMS/HCC) PAF (paroxysmal atrial fibrillation) (CMS/HCC) Lymphedema of both lower extremities CATY on CPAP Chronic diastolic congestive heart failure (CMS/HCC) Constipation Recurrent inguinal hernia DETAILS OF HOSPITAL STAY Presenting Problem/History of Present Illness: Abdominal pain Hospital Course: 78 year old female with PMHx of DM, HTN and hypokalemia presents to the ED complaining of her foleycatheter not draining. CT abdomen showed cystitis. Seen by Dr. Herman from Urology - follow urine culture showed Proteus sensitive to pip/tazo - dc home on augmentin for 1 week, to see pcp before stopping - continue Galvez catheter - no active urological intervention required at present - patient can follow up in Urology office 2 weeks after discharge to establish urology care and further follow-up Seen by Dr. Palmer from surgery for R inguinal hernia Following resolution of her acute infection and outpatient consultation we can probably schedule Constipation treated with miralax and enema, with resolution at time of discharge Active Issues Requiring Follow-up: As above Test Results Pending at Discharge: Order Current Status Blood culture Blood Peripheral Preliminary result Blood culture Blood Peripheral Preliminary result Pertinent Test Results: CT-scan of the abdomen on DOA: Impression: 1. GALVEZ CATHETER IS PRESENT IN THE BLADDER. THERE IS EXTENSIVE EDEMA AROUND THE BLADDER CONSISTENT WITH EXTENSIVE INFLAMMATORY CHANGES WITH THICKENING OF THE BLADDER WALL AND MILD DILATATION OF BOTH URETERS. SUGGEST FURTHER UROLOGY EVALUATION. 2. CHOLECYSTECTOMY, APPENDECTOMY AND HYSTERECTOMY. 3. VERY LARGE AMOUNT OF FECAL MATERIAL DIFFUSELY THROUGHOUT THE COLON. 4. RIGHT INGUINAL HERNIA CONTAINING A SMALL SEGMENT OF NONDILATED SMALL BOWEL. Discharge Details Physical Exam at Discharge: Discharge Condition: good Pulse: 71 Resp: 18 BP: 112/65 Temp: 36.1 ??C (97 ??F) Weight: 80.8 kg (178 lb 3.2 oz) Pertinent Exam Findings at Discharge: Constitutional: she is oriented to person, place, and time. Cardiovascular: Normal rate, regular rhythm and normal heart sounds. Pulmonary/Chest: Effort normal and breath sounds normal. No respiratory distress. she has no wheezes. she exhibits no tenderness. Abdominal: Soft. Bowel sounds are normal. He exhibits no distension. There is no tenderness. Galvez catheter in place Neurological: she is alert and oriented to person, place, and time. she displays normal reflexes. No cranial nerve deficit. Discharge Disposition: Discharge to home, home health skilled care Code Status at Discharge: Full Discharge Instructions: Low k diet Diet Instructions Adult Discharge Diet Diet Type: Return to previous diet Adult Discharge Diet Diet Type: Return to previous diet Other (specify) Explanatory Comment: Low potassium diet Discharge Medications: Current Medications TAKE these medications amitriptyline 25 mg tablet Commonly known as: ELAVIL Take 50 mg by mouth nightly amoxicillin-clavulanate 875-125 mg per tablet Commonly known as: AUGMENTIN Take 1 tablet by mouth 2 (two) times a day for 7 days anastrozole 1 mg tablet Commonly known as: ARIMIDEX Take 1 mg by mouth daily artificial tears 0.3 % gel Commonly known as: SYSTANE Apply 1 drop to both eyes nightly as needed Aspirin Low Dose 81 mg enteric coated tablet Generic drug: aspirin take 1 tablet by oral route every day bromfenac 0.07 % drops Administer 1 drop into affected eye(s) 2 (two) times a day Calmoseptine 0.44-20.6 % ointment Generic drug: menthol-zinc oxide PRN CALTRATE WITH VITAMIN D3 ORAL Take 1 tablet by mouth 2 (two) times a day cranberry extract-vitamin C 250-60 mg capsule Take 2 tablets by mouth daily Crestor 10 mg tablet Generic drug: rosuvastatin TAKE 1 TABLET BY MOUTH 1 TIME PER DAY AT BEDTIME empagliflozin 10 mg tablet Commonly known as: JARDIANCE Take 10 mg by mouth daily flecainide 50 mg tablet Commonly known as: TAMBOCOR TAKE 1 TABLET TWICE A DAY FreeStyle Lite Strips strip Generic drug: blood glucose diagnostic TEST BLOOD SUGARS TWICE A DAY DX E11.9.. furosemide 40 mg tablet Commonly known as: LASIX Take 1 tablet (40 mg total) by mouth daily glimepiride 1 mg tablet Commonly known as: AMARYL TAKE 1 TABLET (1 MG) BY MOUTH 3 TIMES DAILY. Januvia 100 mg tablet Generic drug: SITagliptin take 1 tablet by oral route every day latanoprost 0.005 % ophthalmic solution Commonly known as: XALATAN instill 1 drop by ophthalmic route every day into affected eye(s) in the evening levothyroxine 25 mcg tablet Commonly known as: SYNTHROID Take 25 mcg by mouth tick sewer before breakfast metOLazone 2.5 mg tablet Commonly known as: ZAROXOLYN Take 1 tablet (2.5 mg total) by mouth 2 (two) times a week NexIUM 40 mg capsule Generic drug: esomeprazole DR TAKE 1 CAPSULE DAILY Once Daily tablet Generic drug: multivitamin take 1 tablet by oral route every day with food Plavix 75 mg tablet Generic drug: clopidogrel take 1 tablet by oral route every day polyethylene glycol 17 gram packet Commonly known as: MIRALAX Take 17 g by mouth daily potassium chloride ER 10 mEq CR tablet Commonly known as: KLOR-CON Take 4 tablet/capsule (40 mEq total) by mouth 2 (two) times a day ProAir HFA 90 mcg/actuation inhaler Generic drug: albuterol HFA inhale 2 puff by inhalation route every 4 - 6 hours as needed verapamil ER 120 mg 24 hr capsule Commonly known as: VERELAN Take 1 capsule (120 mg total) by mouth nightly vitamin B-12 1,000 mcg tablet Generic drug: cyanocobalamin take 1 tablet by oral route every day Outpatient Follow-Up: Future Appointments Date Time Provider Department Center 10/25/2019 1:30 PM Laz Valencia MD [facility] Contact Information for Follow-ups Follow-up with providerSee primarry care provider in 1 week Next Steps: Follow up Instructions: See primarry care provider in 1 week Questions: Instructions for follow-up (appointment date and time): See primarry care provider in 1 week Migue Herman MD Specialty: Urology Relationship: Consulting Physician [address] [place] [address] Next Steps: Follow up Sonny Palmer MD Specialty: General Surgery, Vascular Surgery Relationship: Surgeon [address] [place] [address] Next Steps: Follow up More than 30 minutes was personally spent on discharge planning on the day of discharge in coordination of care, counseling the patient, and preparation of discharge and transfer paperwork. RNEY LAWYER documented in this encounter Discharge Instructions * Discharge Instructions* Gay Escudero MD - 05/16/2019 12:01 PM ATTORNEY LAWYER Images from the original note were not included. Interstitial Cystitis PEST CONTROL APPLICATOR: Interstitial cystitis (IC) is also called painful bladder syndrome. IC is a condition that causes pain in your bladder and pelvic area. You may also have ulcers in your bladder. The cause of IC is unknown. Common signs and symptoms include the following: ?? Pressure in your bladder and pelvic area ?? Urgent need to urinate ?? Urinating more often (urinary frequency) or waking from sleep to urinate ?? Increased pain during menstruation ?? Pain in the penis or scrotum in men ?? Pain during sex Contact your healthcare provider if: ?? Your symptoms get worse, or you develop new symptoms. ?? You have questions or concerns about your condition or care. Treatment: The goal of treatment is to control your symptoms. Your healthcare provider will work with you to find the treatment plan that works best to help control your symptoms. He may recommend any of the following: ?? Nutrition changes may be needed. Certain foods may worsen your symptoms. These foods include citrus fruits (oranges, brigid), tomatoes, chocolate, and coffee. Other foods and drinks that may worsen your symptoms include alcohol, spicy foods, and carbonated drinks (soft drinks). ?? Medicines may be given to decrease symptoms such as pain, urinary urgency, and frequency. These medicines may be taken by mouth or placed directly into your bladder. ?? Bladder distension is a procedure to stretch the lou of your bladder using gas or fluid. ?? Electrical stimulation may be done to control symptoms. Mild electrical pulses are sent to the nerves in your bladder. These impulses may help increase blood flow to your bladder or strengthen themuscles that control your bladder. It may also help release hormones that block pain. ?? Surgery may be done to remove ulcers in your bladder. Surgery may also be done to make your bladder larger. Damaged areas of your bladder are removed and replaced with tissue from your large intestine. Manage your symptoms: ?? Do Kegel exercises as directed. Kegel exercises will help strengthen the muscles that control bowel movements and urination. Ask your healthcare provider for more information on Kegel exercises. Tighten your pelvic muscles slowly. It may feel like you are trying to hold back urine or gas. Hold these muscles and count to 3. Relax, tighten them quickly, and release. Repeat the cycle 10 times. Do10 sets of Kegel exercises, 5 times a day. Do not hold your breath when you do Kegel exercises. Keep your stomach, back, and leg muscles relaxed. ?? Do not smoke. Smoking may worsen your symptoms. Nicotine and other chemicals in cigarettes and cigars can also cause lung damage. Ask your healthcare provider for information if you currently smoke and need help to quit. E- cigarettes or smokeless tobacco still contain nicotine. Talk to your healthcare provider before you use these products. ?? Train your bladder to urinate less often. This can be done by going to the bathroom at scheduledtimes. Try to hold your urine when you feel the urge to go. For example, hold your urine for 5 minutes when you feel the urge to go. As that becomes easier, hold your urine for 10 minutes. ?? Manage stress. Stress may worsen symptoms. Your healthcare provider may also recommend that you find ways to manage stress, such as relaxation techniques. Follow up with your healthcare provider as directed: Write down your questions so you remember to ask them during your visits. ?? 2017 [employer] Information is for End User's use only and may not be sold, redistributed or otherwise used for commercial purposes. All illustrations and images included in CareNotes?? are the copyrighted property of [employer], [employer]. or [employer]. The above information is an recreational aide only. It is not intended as medical advice for individual conditions or treatments. Talk to your doctor, nurse or pharmacist before following any medical regimen to see if it is safe and effective for you. RNEY LAWYER * Discharge Instr - Other Orders* Elva Sheppard RN - 05/16/2019 12:05 PM ATTORNEY LAWYER If you have any questions or concerns please call us back at [phone]. We would be more than happy to help answer any questions you have. [facility] strives to provide excellent care. We hope that you feel you have received excellent care. RNEY LAWYER * Attachments The following attachments cannot be sent through Care Everywhere. * Constipation (Discharge Care) ([place]) * Inguinal Hernia (Discharge Care) ([place]aur[place]) * Urinary Tract Infection in Older Adults (Discharge Care) ([place]) * Amoxicillin/Clavulanate Potassium (By mouth) ([place]aur[place]) documented in this encounter Medications at Time of Discharge anastrozole (ARIMIDEX) 1 mg tabletIndications:p revention of breast cancer in high risk women Take 1 tablet (1 mg total) by mouth daily amoxicillin-clavula quentin (AUGMENTIN) 875-125 mg per tablet Take 1 tablet by mouth 2 (two) times a day for 7 days 14 tablet 05/16/2019 0 albuterol HFA (PROAIR HFA) 90 mcg/actuation inhaler inhale 2 puff by inhalation route every 4 - 6 hours as needed 0 Inhaler 0 07/01/2016 1 amitriptyline (ELAVIL) 25 mg tabletIndications:N europathic Pain Take 50 mg by mouth nightly 03/31/2019 3 artificial tears (SYSTANE) 0.3 % gel Apply 1 drop to both eyes nightly as needed 1 aspirin (ASPIRIN LOW DOSE) 81 mg tablet take 1 tablet by oral route every day 0 0 02/16/2016 1 bromfenac 0.07 % dropsIndications:Bi directional Cardiovascular Shunt Administer 1 drop into affected eye(s) 2 (two) times a day 1 calcium carbonate/vitamin D3 (CALTRATE WITH VITAMIN D3 ORAL) Take 1 tablet by mouth 2 (two) times a day 1 clopidogrel (PLAVIX) 75 mg tablet take 1 tablet by oral route every day 0 0 07/01/2016 1 cranberry extract-vitamin C 250-60 mg capsule Take 2 tablets by mouth daily 1 cyanocobalamin (vitamin B-12) 1,000 mcg tablet take 1 tablet by oral route every day 0 0 07/01/2016 1 empagliflozin (JARDIANCE) 10 mg tabletIndications:t ype 2 diabetes mellitus Take 10 mg by mouth daily [address] (NexIUM) 40 mg capsule TAKE 1 CAPSULE DAILY 90 1 01/29/2007 1 flecainide (TAMBOCOR) 50 mg tablet TAKE 1 TABLET TWICE A DAY 180 tablet 4 04/14/2019 1 FREESTYLE LITE STRIPS strip TEST BLOOD SUGARS TWICE A DAY DX E11.9.. 1 03/23/2019 1 furosemide (LASIX) 40 mg tablet Take 1 tablet (40 mg total) by mouth daily 30 tablet 11 04/20/2019 0 glimepiride (AMARYL) 1 mg tablet TAKE 1 TABLET (1 MG) BY MOUTH 3 TIMES DAILY. 2 04/14/2019 1 latanoprost (XALATAN) 0.005 % ophthalmic solution instill 1 drop by ophthalmic route every day into affected eye(s) in the evening 0 0 07/01/2016 1 levothyroxine (SYNTHROID) 25 mcg tablet Take 25 mcg by mouth tick sewer before breakfast 1 menthol-zinc oxide (CALMOSEPTINE) 0.44-20.6 % ointment PRN 0 0 07/01/2016 1 metOLazone (ZAROXOLYN) 2.5 mg tablet Take 1 tablet (2.5 mg total) by mouth 2 (two) times a week 30 tablet 1 03/08/2019 0 multivitamin (ONCE DAILY) tablet tablet take 1 [...] route every day 0 0 07/01/2016 1 verapamil ER (VERELAN) 120 mg 24 hr capsule Take 1 capsule (120 mg total) by mouth nightly 30 capsule 11 04/20/2019 0 documented as of this encounter Ordered Prescriptions Prescription Sig Dispense Quantity Refills Last Filled Start Date End Date amoxicillin-clavul anate (AUGMENTIN) 875-125 mg per tablet Take 1 tablet by mouth 2 (two) times a day for 7 days 14 tablet 05/16/2019 05/23/2019 documented in this encounter Discharge Disposition Disposition Code Departure Means Destination Discharge to home, home health skilled care documented in this encounter Progress Notes * aIn Mart[facility] - 05/16/2019 6:28 AM CST Electrolyte monitoring performed by pharmacy on labs from 05/16/19 04:34, Na+=144 K+=4.2 Mg+=2.4 Phos=2.2 K-Phos neutral 250 mg orally tid X 3 doses today per electrolyte replacement protocol for phosphorous =2.2 on 05/16/19 replacement ordered. Pharmacy will continue to follow daily. RNEY LAWYER * Gay Escudero MD - 05/15/2019 5:56 PM CST Hospitalist Daily Progress SUBJECTIVE: Chief complaint of Chief Complaint Patient presents with ??? Urinary Problem Interval History: had BM Denies any complaints Feels she can go home tomorrow OBJECTIVE: Vitals: 24hr Min/Max: Temp Min: 36.3 ??C (97.3 ??F) Max: 36.4 ??C (97.6 ??F) Pulse Min: 75 Max: 82 BP Min: 114/50 Max: 135/58 Resp Min: 18 Max: 20 SpO2 Min: 90 % Max: 91 % Review of Systems Most Recent : Vitals: 05/14/19 1530 05/14/19 2332 05/15/19 0812 05/15/19 1504 BP: 113/59 114/50 121/50 135/58 BP Location: Right arm Right arm Right arm Right arm Patient Position: Lying Lying Lying Pulse: (!) 47 82 75 75 Resp: 18 18 20 18 Temp: 36.8 ??C (98.2 ??F) 36.4 ??C (97.6 ??F) 36.3 ??C (97.3 ??F) 36.4 ??C (97.6 ??F) TempSrc: Temporal Temporal Temporal Temporal SpO2: 91% 91% 90% Weight: Height: I/O last 2 completed shifts: In: 2524 [P.O.:840; I.V.:1554; IV Piggyback:130] Out: 4450 [Urine:4450] I/O this shift: In: 360 [P.O.:360] Out: - Physical Exam Lab/Radiology/Diagnostic Review: Recent Results (from the past 24 hour(s)) POCT glucose Collection Time: 05/14/19 11:20 PM Result Value Ref Range Glucose, POC 161 (H) 71 - 98 mg/dL POCT glucose Collection Time: 05/15/19 2:14 AM Result Value Ref Range Glucose, POC 123 (H) 71 - 98 mg/dL Phosphorus Collection Time: 05/15/19 4:28 AM Result Value Ref Range Phosphorus, pl 1.9 (L) 2.3 - 4.5 mg/dL Magnesium Collection Time: 05/15/19 4:28 AM Result Value Ref Range Magnesium 2.2 1.6 - 2.4 mg/dL CBC with auto differential Collection Time: 05/15/19 4:28 AM Result Value Ref Range WBC 11.0 (H) 3.8 - 9.9 K/cumm Hgb 12.4 11.9 - 15.5 g/dL Hct 38.6 35.6 - 45.5 % Plt 326 150 - 400 K/cumm MPV 10.5 9.1 - 12.3 fL RBC 4.68 3.90 - 5.20 M/cumm MCV 82.5 81.3 - 96.4 fL MCH 26.5 (L) 27.1 - 33.3 pg MCHC 32.1 (L) 32.3 - 35.7 g/dL RDW CV 16.6 (H) 11.1 - 14.9 % RDW SD 49.2 (H) 35.7 - 48.1 fL NRBC abs 0.00 0.00 - 0.01 K/cumm Comprehensive metabolic panel Collection Time: 05/15/19 4:28 AM Result Value Ref Range Sodium 140 135 - 145 mmol/L Potassium, pl 2.7 (Critical) 3.3 - 4.9 mmol/L Chloride 104 97 - 110 mmol/L CO2 24 22 - 32 mmol/L Anion gap 12 2 - 15 mmol/L BUN 14 8 - 25 mg/dL Creatinine 0.74 0.60 - 1.10 mg/dL Glucose 134 70 - 199 mg/dL Calcium 9.4 8.5 - 10.3 mg/dL Bilirubin, total 0.3 0.1 - 1.2 mg/dL Protein, pl 6.2 (L) 6.5 - 8.5 g/dL Albumin 3.5 3.5 - 5.0 g/dL Alk phos 76 40 - 130 Units/L ALT 28 7 - 45 Units/L AST 21 10 - 45 Units/L Differential, auto Collection Time: 05/15/19 4:28 AM Result Value Ref Range Neutrophil abs 7.6 (H) 1.7 - 6.5 K/cumm Imm gran abs 0.1 0.0 - 0.1 K/cumm Lymphocyte abs 1.5 0.8 - 3.3 K/cumm Monocyte abs 1.5 (H) 0.2 - 0.8 K/cumm Eosinophil abs 0.2 0.0 - 0.5 K/cumm Basophil abs 0.0 0.0 - 0.1 K/cumm Neutrophil pct 69.8 % Imm gran pct 0.5 % Lymphocyte pct 13.7 % Monocyte pct 13.6 % Eosinophil pct 2.0 % Basophil pct 0.4 % eGFR Collection Time: 05/15/19 4:28 AM Result Value Ref Range GFR 77 mL/min/1.73 m2 POCT glucose Collection Time: 05/15/19 8:16 AM Result Value Ref Range Glucose, POC 113 (H) 71 - 98 mg/dL POCT glucose Collection Time: 05/15/19 11:47 AM Result Value Ref Range Glucose, POC 167 (H) 71 - 98 mg/dL Potassium Collection Time: 05/15/19 1:58 PM Result Value Ref Range Potassium, pl 3.7 3.3 - 4.9 mmol/L POCT glucose Collection Time: 05/15/19 5:01 PM Result Value Ref Range Glucose, POC 129 (H) 71 - 98 mg/dL Constitutional: she is oriented to person, place, and time. Cardiovascular: Normal rate, regular rhythm and normal heart sounds. Pulmonary/Chest: Effort normal and breath sounds normal. No respiratory distress. she has no wheezes. she exhibits no tenderness. Abdominal: Soft. Bowel sounds are normal. He exhibits no distension. There is no tenderness. Neurological: she is alert and oriented to person, place, and time. she displays normal reflexes. No cranial nerve deficit. ASSESSMENT/PLAN: Principal Problem: Cystitis Active Problems: Weakness generalized DM (diabetes mellitus) (CMS/HCC) PAF (paroxysmal atrial fibrillation) (CMS/HCC) Lymphedema of both lower extremities CATY on CPAP Chronic diastolic congestive heart failure (CMS/HCC) Constipation Recurrent inguinal hernia Continue zosyn, await culture results and reasess Pain free Surgeon advised elective surgery reducible uncomplicated hernia SSI with accucheks Home meds Am labs Pt reports having muscle atrophy and I will consult PT Heparin for DVT prophylaxis Full Code Voice recognition software [employer] Direct was used dictate and transcribe this document. Oil Separator variances may occur. Despite proofreading, typographical errors may occur. Gay Escudero MD 05/15/2019 5:56 PM [employer]NEY [employer] * Karey Bashir, PT - 05/15/2019 12:28 PM CST Physical Therapy eval 05/15/19 1200 General Chart Reviewed Yes Session Type Evaluation PT Received On 05/15/19 Subjective Agreeable to Therapy Precautions Precautions Fall risk Home Living Type of Home House Home Layout One level Home Access Level entry Prior Function Level of [place] Independent with ADLs;Independent functional transfers;Independent with ambulation;Needs assistance with homemaking Lives With Spouse Receives Help From Spouse/Significant other Balance Balance Yes Static Sitting Balance Static Sitting-Balance Support Bilateral upper extremity supported Static Sitting-Sitting Surface Bed Static Sitting-Level of Assistance Close supervision Static Standing Balance Static Standing-Balance Support Bilateral upper extremity supported Static Standing-Standing Surface Floor Static Standing-Level of Assistance Contact guard Bed Mobility Bed Mobility Yes Bed Mobility 1 Bed Mobility From 1 Supine Bed Mobility Type 1 To Bed Mobility to 1 Edge of bed Level of Assistance 1 Minimum Assist;Moderate Assist Transfers Transfer Yes Transfer 1 Transfer From 1 Bed Transfer Type 1 To Transfer to 1 Chair with arms Technique 1 Sit to stand;Stand to sit Transfer Device 1 Wheeled walker Transfer Level of Assistance 1 Minimum Assist Ambulation 1 Distance (ft) 1 2 Surface 1 Level tile Device 1 Wheeled walker Assistance 1 Minimum Assist Gait: Requires assist with 1 Maintaining hip extension Gait: Requires verbal cues to 1 Use assistive device safely;Improve upright posture RLE Assessment RLE Assessment X (limited ROM and strength throughout) LLE Assessment LLE Assessment X (limited ROM and strength throughout) Assessment Prognosis Fair Problem List Decreased strength;Decreased range of motion;Decreased endurance;Impaired balance;Decreased mobility Barriers to Discharge Current Mobility Status;Home environment challenged Plan Plan Plan of care initiated;If this is the last note, consider this the discharge summary Recommendation/Plan PT Recommendation/Plan Home with family;Home Health PT PT Frequency 3-5x/wk Treatment/Interventions Bed mobility;Balance Training;Endurance training;Functional activity;Functional transfer training Progress Slow progress, decreased activity tolerance PT Evaluation Complete Yes Multi-Disciplinary Problems (from Physical Therapy) Active Problems Problem: PT [facility] [place] Start Date: 05/15/19 Goal Start Date End Date [facility] [place] 1 05/15/19 -- Goal Details: Pt to be SBA for bed mobility Goal Start Date End Date [facility] 2 05/15/19 -- Goal Details: Pt to be SBA for all transfers Goal Start Date End Date [facility] 3 05/15/19 -- Goal Details: Pt to amb 10' w/WW, SBA/CGA Karey Bashir PT [employer] * Tonya Schwab, OT - 05/15/2019 11:52 AM CST Occupational Therapy 05/15/19 1045 General Subjective Comment (I can't. I just keep going. I can't go to the commode. ) Rehab Only - Missed Reasons - All Disciplines Patient request (Pt states she has been taking laxatives/incontinent stool) Family/Caregiver Present (nurse present) Will attempt to see at later date when able to tolerate. [employer]ER * Karey Bashir, PT - 05/15/2019 11:29 AM CST Physical Therapy 05/15/19 1100 General PT Missed Visit Reason With other staff/receiving another service;Patient declined Rehab Only - Missed Reasons - All Disciplines Patient request Karey Bashir PT [employer] * Vannesa Duke, PT - 05/14/2019 5:20 PM CST Physical Therapy 05/14/19 1712 General PT Missed Visit Reason (eating supper) Vannesa Duke PT [employer] * Julia Nieves BSW - 05/14/2019 12:36 PM CST 05/14/19 1236 Communications CABELLO letter given? Yes CABELLO letter given on: 05/14/19 [employer]ER * Julia Nieves BSW - 05/14/2019 12:32 PM CST Case opened today per physician's order for dc planning. Pt resides with her who can assistwith her needs. Pt's goal is to return home and have home health services resume. Pt unsure of nameof agency that currently follows her. LIZ Cody plans to check on agency that currently visits pt. Pt voiced no other needs at this time. SW will follow case. 05/14/19 1229 Information Information Obtained From Patient Referral Data Referral Source Physician Referral Reason Discharge Planning Prior to Admission Primary Caregiver Spouse Support System Spouse/Significant Other Home Care Services Yes Type of Home Care Services form worker;Private Duty Home care service name and phone number Private pay homemaker visits 2 times a month Durable Medical Equipment Walker (wheeled) (electric scooter) Living Arrangements Spouse/significant other Type of Residence Private residence Financial Resource Income Long Term/Pension Payor Source Medicare Potential Discharge Needs Home Health longterm (Currently has HH but unsure of agency name) Anticipated discharge level of care Private residence [employer]NEY [employer]YER * Kyleigh Robles - 05/14/2019 12:31 PM CST Nutrition Assessment Reason for Assessment: Screened at Nutrition Risk, Initial Nutrition Assessment and Consult/Referral Encounter Date: 05/14/19 12:36 PM Nutrition Assessment and Plan: Patient is a 78 y.o. female. Admit Dx: EMPHYSEMATOUS CYSTITIS. Admitted on 05/13/2019, current LOS is 0 days. Nutrition Screen What diet do you follow at home?: regular diet Have You Recently Lost Weight Without Trying?: Yes (Comment) How Much Weight Have You Lost?: 9.072 kg (20 lb) What is the Timeframe of Weight Change?: 1 month Poor Oral Intake for Four or More Days Prior to Admission: No Current diet order: NPO Diet Pt intake is inadequate. PO intakes: na Wt Readings from Last 10 Encounters: 05/13/19 80.8 kg (178 lb 3.2 oz) 04/20/19 78.5 kg (173 lb) 03/19/19 83 kg (182 lb 15.7 oz) 03/06/19 87.8 kg (193 lb 9 oz) 09/29/18 90.7 kg (200 lb) 04/07/18 88 kg (194 lb) 09/30/17 93.3 kg (205 lb 11 oz) 02/16/16 92.5 kg (204 lb) 10/17/15 92.5 kg (204 lb) 09/26/15 94.3 kg (208 lb) ASSESSMENT: Consult for unintended weight loss. Weight loss: -22 lb/7 months (11%); 15.5 lb/2 months (8%) NPO right now. Out of room when gone to see. Malnutrition assessment at next FU if pt is available. Nutrition Diagnosis 1: Unintended weight loss Related to: Loss of appetite Evidenced by: Lab abnormality, Physical finding, Weight loss Interventions: [place] diet preferences within the limits of nutrition care order, Treatments and procedures Monitoring and Evaluation: Diet advancement, I/O, Labs, Plan of care, PO intake, Appetite ?? Goals: Advance to oral intake as medically able Estimated needs: ?? Total Kcal/kg Estimated Needs : based on Kcal/k. Type of Weight Used for Estimated Kcals: Current ?? MSJ Total Energy Needs: 1841.76 kcal using Stress Factor: 1.2 Activity Factor: 1.2 ?? MINH State Total Energy Needs + Fever Factor: 1841.76 ?? Total Protein Estimated Needs (gm): 80.83 Protein Needs Based on g/k.0 Type of Weight Used for Estimated Protein : Current. ?? Total Fluid Estimated Needs: Fluid Needs Based on : 1 ml/kcal. Objective Anthropometrics Weight: 80.8 kg (178 lb 3.2 oz) Admission Weight : 80.8 kg Weight Change: 2.35 kg (5.20 lbs) IBW/kg (Calculated) : 56.7 kg Height: 165.1 cm (5' 5 ) Weight in (lb) to have BMI = 25: 149.9 BMI (Calculated): 29.7 BMI Classification: BMI 25.0 - 29.9 Overweight 3 Day I/O Summary 05/120 - 05/14 0659 In: 2315 [P.O.:300; I.V.:5] Out: 2750 [Urine:2750] Temp: 36.4 ??C (97.5 ??F) Past Medical History: Diagnosis Date ??? [...] apnea Medications and Lab Review: Scheduled Meds: HYDROmorphone, 0.2 mg, intravenous, Once ondansetron, 4 mg, intravenous, Once potassium chloride, 40 mEq, intravenous, Once sodium chloride 0.9%, 0.5-20 mL, intra-catheter, Q8H Continuous Infusions: Sodium Date Value Ref Range Status 05/14/2019 136 135 - 145 mmol/L Final Potassium, pl Date Value Ref Range Status 05/14/2019 2.5 (Critical) 3.3 - 4.9 mmol/L Final Comment: Critical Result called to and read back by Karan Ruth, DATE: 2019-05-14 05:59:48 BY: Brooke Barnard BUN Date Value Ref Range Status 05/14/2019 17 8 - 25 mg/dL Final Creatinine Date Value Ref Range Status 05/14/2019 0.68 0.60 - 1.10 mg/dL Final Albumin Date Value Ref Range Status 05/14/2019 3.3 (L) 3.5 - 5.0 g/dL Final Calcium Date Value Ref Range Status 05/14/2019 9.3 8.5 - 10.3 mg/dL Final Lab Results Component Value Date HGBA1C 7.4 (H) 10/17/2015 POC Glucose: Results for LOC ANDERSON ( ) as of 05/14/2019 12:35 Ref. Range 05/13/2019 16:03 05/14/2019 02:03 05/14/2019 03:47 05/14/2019 09:10 05/14/2019 12:11 Glucose Latest Ref Range: 70 - 199 mg/dL 124 Glucose, POC Latest Ref Range: 71 - 98 mg/dL 268 (H) 191 (H) 96 94 Nursing Assessment: Last BM Date: 05/12/19 Bowel Sounds (All Quadrants): Active Damion Scale Score: 19 Skin Integrity: Redness Kyleigh Robles, MS RD LDN [employer]ER * Julia Nieves BSW - 05/14/2019 12:29 PM CST 05/14/19 1229 Basic Mobility - 6 Click How much difficulty does the patient have: Turning over in bed 3 How much difficulty does the patient currently have: Sitting down and standing up from a chair witharms? 3 How much difficulty does the patient have: Moving from lying on back to sitting on the side of the bed? 3 How much difficulty does the patient have: Moving to and from a bed to a chair including wheelchair? 3 How much help does the patient currently need: Walk in hospital room? 3 How much help from another person does the patient currently need: Climbing 3-5 steps with a railing? 3 Total Score (range 6-24) 18 [employer]NEY [employer]ER * Ludy Garcia [facility] - 05/14/2019 6:22 AM CST An order to initiate electrolyte repletion by pharmacy has been received from Dr. Pozo. IV or PO repletion will be ordered by the pharmacist when levels fall below the desired range basedon NPO status as follows: If potassium level is greater than 2.8 and less than 3.3, give 40mEq potassium chloride IVPB, or oral (per NG tube, when applicable). If potassium level is 2.8 or less, or greater than 6, call physician for orders If magnesium level is 1.0 - 1.5 and patient can take oral medications, administer magnesium oxide 400 mg oral TID x 3 doses. If magnesium level is <1.0, or 1.0 -1.5 and patient is NPO, administer 2 grams magnesium sulfateIVPB over 2 hours. Repletion of Phosphorus Patient can take oral/per tube meds sodium/potassium phosphate Tab contains 1.1 mEq K, 13 mEq Na, 8 mmol phos Powder Packet contains 7.1 mEq K, 6.9 mEq Na, 8 mmol phos Patient NPO and/or Phosphorus level is <1.1 or Phosphorus level is 2.5 or less in TPN patient Decrease dose by 50% for CrCl < 50 Potassium level < 3.3 Potassium level 3.3 - 3.4 Potassium level 3.5 or higher Potassium level < 4.5 Potassium level 4.5 or higher Phosphorus 1.9 - 2.5 1 packet TID x 3 doses, KCl 20 mEq x 1 dose 1 packet TID x 3 doses 1 tab TID x 3 doses Potassium Phosphate 0.4 mmol/kg IVPB over 6 hours Sodium Phosphate 0.4 mmol/kg IVPB over 6 hours Phosphorus 1.1 - 1.8 2 packets TID x 3 doses, KCl 20 mEq x 1 dose 2 packets TID x 3 doses 2 tabs TID x 3 doses Monitoring Guidelines: Electrolyte levels will be ordered by providers as needed, except TPN patients who will be monitored as follows: TPN Patients: Renal panel daily x3 days, then every other day. Electrolyte monitoring performed by pharmacy on labs from 05/14/19 0347, Na+=136 K+=2.5 Potassium chloride 40meq iv x 2 doses ordered by Pharmacy will continue to follow daily. [employer]NEY [employer]YER * Ludy Garcia RPh - 05/14/2019 6:21 AM CST An order to initiate electrolyte repletion by pharmacy has been received from Dr. Pozo. IV or PO repletion will be ordered by the pharmacist when levels fall below the desired range basedon NPO status as follows: If potassium level is greater than 2.8 and less than 3.3, give 40mEq potassium chloride IVPB, or oral (per NG tube, when applicable). If potassium level is 2.8 or less, or greater than 6, call physician for orders If magnesium level is 1.0 - 1.5 and patient can take oral medications, administer magnesium oxide 400 mg oral TID x 3 doses. If magnesium level is <1.0, or 1.0 -1.5 and patient is NPO, administer 2 grams magnesium sulfateIVPB over 2 hours. Repletion of Phosphorus Patient can take oral/per tube meds sodium/potassium phosphate Tab contains 1.1 mEq K, 13 mEq Na, 8 mmol phos Powder Packet contains 7.1 mEq K, 6.9 mEq Na, 8 mmol phos Patient NPO and/or Phosphorus level is <1.1 or Phosphorus level is 2.5 or less in TPN patient Decrease dose by 50% for CrCl < 50 Potassium level < 3.3 Potassium level 3.3 - 3.4 Potassium level 3.5 or higher Potassium level < 4.5 Potassium level 4.5 or higher Phosphorus 1.9 - 2.5 1 packet TID x 3 doses, KCl 20 mEq x 1 dose 1 packet TID x 3 doses 1 tab TID x 3 doses Potassium Phosphate 0.4 mmol/kg IVPB over 6 hours Sodium Phosphate 0.4 mmol/kg IVPB over 6 hours Phosphorus 1.1 - 1.8 2 packets TID x 3 doses, KCl 20 mEq x 1 dose 2 packets TID x 3 doses 2 tabs TID x 3 doses Monitoring Guidelines: Electrolyte levels will be ordered by providers as needed, except TPN patients who will be monitored as follows: TPN Patients: Renal panel daily x3 days, then every other day. [employer] documented in this encounter H&P Notes * Gay Escudero MD - 05/14/2019 4:41 PM CST History and Physical Date of Service: 05/14/2019 Primary Care Physician: Theresa Camargo MD [phone] SUBJECTIVE: Patient is a 78 y.o. female with a PMHx significant for ch indwelling galvez. Presents to the ED with a chief complaint of ab pain. HPI: 78 year old female with PMHx of DM, HTN and hypokalemia presents to the ED complaining of her foleycatheter not draining. Patient states she is unable to pass urine and is in a lot of abdominal pain. Per who is at bedside, Pt has not urinated since yesterday evening and she has been Constipated as well.Her PCP recommended drinking 64 oz of water per day to clear up urine sediments. Her last normal bowel movement was 2 wks ago. Pt is currently taking amoxicillin for a bladder infection. She was started on zosyn Her ab pain improved with improved urinary drain in galvez She wants to eat, otherwise has no complaints for me? Past Medical History: Diagnosis Date ??? A-fib [...] Medication Sig Dispense Refill Last Dose ??? calcium carbonate/vitamin D3 (CALTRATE WITH VITAMIN D3 ORAL) Take 1 tablet by mouth 2 (two) times a day 05/13/2019 at Unknown time ??? cranberry extract-vitamin C 250-60 mg capsule Take 2 tablets by mouth daily 05/13/2019 at Unknown time ??? albuterol HFA (PROAIR HFA) 90 mcg/actuation inhaler inhale 2 puff by inhalation route every 4 -6 hours as needed 0 Inhaler 0 Unknown at Unknown time ??? amitriptyline (ELAVIL) 25 mg tablet Take 50 mg by mouth nightly 05/12/2019 at Unknown time ??? anastrozole (ARIMIDEX) 1 mg tablet Take 1 mg by mouth daily 05/13/2019 at Unknown time ??? artificial tears (SYSTANE) 0.3 % gel Apply 1 drop to both eyes nightly as needed Unknown at Unknown time ??? aspirin (ASPIRIN LOW DOSE) 81 mg tablet take 1 tablet by oral route every day 0 0 05/13/2019 atUnknown time ??? bromfenac 0.07 % drops Administer 1 drop into affected eye(s) 2 (two) times a day 05/13/2019 atUnknown time ??? clopidogrel (PLAVIX) 75 mg tablet take 1 tablet by oral route every day (Patient taking differently: Take 75 mg by mouth nightly ) 0 0 05/12/2019 at Unknown time ??? cyanocobalamin (vitamin B-12) 1,000 mcg tablet take 1 tablet by oral route every day 0 0 05/12/2019 at Unknown time ??? empagliflozin (JARDIANCE) 10 mg tablet Take 10 mg by mouth daily 05/13/2019 at Unknown time ??? esomeprazole DR (NexIUM) 40 mg capsule TAKE 1 CAPSULE DAILY (Patient taking differently: Take 40 mg by mouth nightly ) 90 1 05/12/2019 at Unknown time ??? flecainide (TAMBOCOR) 50 mg tablet TAKE 1 TABLET TWICE A DAY 180 tablet 4 05/12/2019 at Unknowntime ??? FREESTYLE LITE STRIPS strip TEST BLOOD SUGARS TWICE A DAY DX E11.9.. 1 Unknown at Unknown time ??? furosemide (LASIX) 40 mg tablet Take 1 tablet (40 mg total) by mouth daily 30 tablet 11 05/13/2019 at Unknown time ??? glimepiride (AMARYL) 1 mg tablet TAKE 1 TABLET (1 MG) BY MOUTH 3 TIMES DAILY. 2 05/13/2019 at Unknown time ??? latanoprost (XALATAN) 0.005 % ophthalmic solution instill 1 drop by ophthalmic route every day into affected eye(s) in the evening (Patient taking differently: Administer 0.005 % into both eyes nightly ) 0 0 05/12/2019 at Unknown time ??? levothyroxine (SYNTHROID) 25 mcg tablet Take 25 mcg by mouth tick sewer before breakfast 05/13/2019 at Unknown time ??? menthol-zinc oxide (CALMOSEPTINE) 0.44-20.6 % ointment PRN 0 0 Unknown at Unknown time ??? metOLazone (ZAROXOLYN) 2.5 mg tablet Take 1 tablet (2.5 mg total) by mouth 2 (two) times a week(Patient taking differently: Take 2.5 mg by mouth 2 (two) times a week ) 30 tablet 1 05/13/2019 at Unknown time ??? multivitamin (ONCE DAILY) tablet tablet take 1 tablet by oral route every day with food 0 0 05/13/2019 at Unknown time ??? polyethylene glycol (MIRALAX) 17 gram packet Take 17 g by mouth daily ??? potassium chloride ER (KLOR-CON) 10 mEq CR tablet Take 4 tablet/capsule (40 mEq total) by mouth2 (two) times a day 05/13/2019 at Unknown time ??? rosuvastatin (CRESTOR) 10 mg tablet TAKE 1 TABLET BY MOUTH 1 TIME PER DAY AT BEDTIME 90 5 05/12/2019 at Unknown time ??? SITagliptin (JANUVIA) 100 mg tablet take 1 tablet by oral route every day 0 0 05/13/2019 at Unknown time ??? spironolactone (ALDACTONE) 25 mg tablet Take 1 tablet (25 mg total) by mouth daily 30 tablet 11107/14/2018 at Unknown time ??? verapamil ER (VERELAN) 120 mg 24 hr capsule Take 1 capsule (120 mg total) by mouth nightly 30 capsule 11 05/12/2019 at Unknown time Allergies Allergen Reactions ??? [...] Hypertension; Review of Systems: Review of Systems OBJECTIVE: Vitals: Arrival Vitals Temp 05/13/19 1240 37 ??C (98.6 ??F) Pulse 05/13/19 1240 99 Resp 05/13/19 1240 18 BP 05/13/19 1240 148/84 SpO2 05/13/19 1240 95 % Temp src 05/13/191945 Temporal Heart Rate Source 05/13/192302 Monitor Patient Position 05/13/191945 Lying;Sitting BP Location 05/13/19 194 Right arm FiO2 (%) -- Most Recent : Vitals: 05/13/19 19405/13/19 2303 05/14/19 0718 05/14/19 1530 BP: 110/83 122/47 113/59 BP Location: Right arm Left arm Right arm Patient Position: Lying;Sitting Lying Pulse: 86 62 81 (!) 47 Resp: 18 Temp: 36.2 ??C (97.2 ??F) 36.4 ??C (97.6 ??F) 36.4 ??C (97.5 ??F) 36.8 ??C (98.2 ??F) TempSrc: Temporal Temporal Temporal Temporal SpO2: 95% 98% 91% 91% Weight: 80.8 kg (178 lb 3.2 oz) Height: 165.1 cm (5' 5 ) I/O last 2 completed shifts: In: 2315 [P.O.:300; I.V.:5; IV Piggyback:2009] Out: 2750 [Urine:2750] No intake/output data recorded. Physical Exam: Physical Exam Constitutional: she is oriented to person, place, and time. HENT: Head: Normocephalic and atraumatic. Eyes: Pupils are equal, round, and reactive to light. Conjunctivae and EOM are normal. Neck: Normal range of motion. Neck supple. Cardiovascular: Normal rate, regular rhythm and normal heart sounds. Pulmonary/Chest: Effort normal and breath sounds normal. No respiratory distress. she has no wheezes. she exhibits no tenderness. Abdominal: Soft. Bowel sounds are normal. Diffuse distension. There is no tenderness. R inguinal hernia with no pain, no bowel sounds on auscultation over hernia, hernia reducible Musculoskeletal: Normal range of motion. Neurological: she is alert and oriented to person, place, and time. she displays normal reflexes. No cranial nerve deficit. Skin: Skin is warm and dry. Capillary refill takes less than 2 seconds. Psychiatric: she has a normal mood and affect. Lab/Radiology/Diagnostic Review: Recent Results (from the past 24 hour(s)) Sepsis Lactate w/ Reflex Collection Time: 05/13/19 6:51 PM Result Value Ref Range Sepsis Lactate 2.9 (H) 0.7 - 2.0 mmol/L POCT glucose Collection Time: 05/14/19 2:03 AM Result Value Ref Range Glucose, POC 191 (H) 71 - 98 mg/dL CBC with auto differential Collection Time: 05/14/19 3:47 AM Result Value Ref Range WBC 17.6 (H) 3.8 - 9.9 K/cumm Hgb 12.5 11.9 - 15.5 g/dL Hct 39.5 35.6 - 45.5 % Plt 342 150 - 400 K/cumm MPV 10.2 9.1 - 12.3 fL RBC 4.80 3.90 - 5.20 M/cumm MCV 82.3 81.3 - 96.4 fL MCH 26.0 (L) 27.1 - 33.3 pg MCHC 31.6 (L) 32.3 - 35.7 g/dL RDW CV 16.3 (H) 11.1 - 14.9 % RDW SD 48.3 (H) 35.7 - 48.1 fL NRBC abs 0.00 0.00 - 0.01 K/cumm Comprehensive metabolic panel Collection Time: 05/14/19 3:47 AM Result Value Ref Range Sodium 136 135 - 145 mmol/L Potassium, pl 2.5 (Critical) 3.3 - 4.9 mmol/L Chloride 99 97 - 110 mmol/L CO2 25 22 - 32 mmol/L Anion gap 12 2 - 15 mmol/L BUN 17 8 - 25 mg/dL Creatinine 0.68 0.60 - 1.10 mg/dL Glucose 124 70 - 199 mg/dL Calcium 9.3 8.5 - 10.3 mg/dL Bilirubin, total 0.3 0.1 - 1.2 mg/dL Protein, pl 6.1 (L) 6.5 - 8.5 g/dL Albumin 3.3 (L) 3.5 - 5.0 g/dL Alk phos 89 40 - 130 Units/L ALT 25 7 - 45 Units/L AST 25 10 - 45 Units/L Differential, auto Collection Time: 05/14/19 3:47 AM Result Value Ref Range Neutrophil abs 13.2 (H) 1.7 - 6.5 K/cumm Imm gran abs 0.1 0.0 - 0.1 K/cumm Lymphocyte abs 1.6 0.8 - 3.3 K/cumm Monocyte abs 2.5 (H) 0.2 - 0.8 K/cumm Eosinophil abs 0.1 0.0 - 0.5 K/cumm Basophil abs 0.0 0.0 - 0.1 K/cumm Neutrophil pct 75.2 % Imm gran pct 0.4 % Lymphocyte pct 9.2 % Monocyte pct 14.4 % Eosinophil pct 0.6 % Basophil pct 0.2 % eGFR Collection Time: 05/14/19 3:47 AM Result Value Ref Range GFR 83 mL/min/1.73 m2 POCT glucose Collection Time: 05/14/19 9:10 AM Result Value Ref Range Glucose, POC 96 71 - 98 mg/dL POCT glucose Collection Time: 05/14/19 12:11 PM Result Value Ref Range Glucose, POC 94 71 - 98 mg/dL Ct Abdomen Pelvis Wo Contrast Result Date: 05/13/2019 Narrative: CT ABDOMEN PELVIS WO CONTRAST HISTORY: Abdominal pain. Pelvic pain. Breast cancer. Hysterectomy. Appendectomy. Cholecystectomy. Obstructed Galvez catheter. TECHNIQUE: Serial axial images ofthe abdomen and pelvis obtained without contrast.. COMPARISON: 06/14/2016 FINDINGS: Evaluation of the solid abdominal organs is limited by the lack of intravenous contrast. Lung bases are clear. There is moderate atherosclerotic plaque in the wall of a normal caliber abdominal aorta. There are a few granulomatous calcifications in the liver otherwise the liver appears normal. Gallbladder has beenremoved with clips in the right upper quadrant. There are multiple granulomatous calcifications in the spleen that otherwise appears normal. There is no renal or ureter stone identified. There is no dilatation of either intrarenal collecting system but there is mild dilatation of both ureters. There is a Galvez catheter in the urinary bladder. There is a large amount of air in the urinary bladder.There is extensive edema in the perivesical fat indicative of a significant amount of inflammation around the urinary bladder. There is no significant fluid seen within the bladder itself. The bladder wall appears moderately thickened diffusely. Adrenal glands are normal. Pancreas is normal. There is a very large amount of fecal material diffusely throughout the colon. No dilated small or large bowel loops or localized inflammatory bowel changes are identified. There is a inguinal hernia on theright containing a small segment of nondilated small bowel. Appendix by report has been removed. The uterus is absent. No adenopathy or definitive free air is identified in the abdomen or pelvis. There are no acute osseous abnormalities. 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 Impression: 1. GALVEZ CATHETER IS PRESENT IN THE BLADDER. THERE IS EXTENSIVE EDEMA AROUND THE BLADDER CONSISTENT WITH EXTENSIVE INFLAMMATORY CHANGES WITH THICKENING OF THE BLADDER WALL AND MILD DILATATION OF BOTH URETERS. SUGGEST FURTHER UROLOGY EVALUATION. 2. CHOLECYSTECTOMY, APPENDECTOMY AND HYSTERECTOMY. 3. VERY LARGE AMOUNT OF FECAL MATERIAL DIFFUSELY THROUGHOUT THE COLON. 4. RIGHT INGUINAL HERNIA CONTAINING A SMALL SEGMENT OF NONDILATED SMALL BOWEL. Electronically signed by: Raghu Gutierrez M.D. ASSESSMENT/PLAN: Principal Problem: Cystitis Active Problems: Weakness generalized DM (diabetes mellitus) (CMS/HCC) PAF (paroxysmal atrial fibrillation) (CMS/HCC) Lymphedema of both lower extremities CATY on CPAP Chronic diastolic congestive heart failure (CMS/HCC) Constipation Recurrent inguinal hernia Continue zosyn Await urology consult for cystitis, npo for now Pain free Consult surgery for reducible uncomplicated hernia per pt wishes Treat constipation with enema, lactulose, miralax SSI with accucheks Home meds Am labs Pt reports having muscle atrophy and I will consult PT Heparin for DVT prophylaxis Full Code ESTIMATED LENGTH OF STAY: more than 2 midnights anticipated Voice recognition software [email or web address] Fluency Direct was used dictate and transcribe this document. Oil Separator variances may occur. Despite proofreading, typographical errors may occur. Gay Escudero MD 05/14/2019 4:41 PM RNEY LAWYER documented in this encounter Consult Notes * Sonny Palmer MD - 05/15/2019 2:19 PM CSTAssociated Order(s): IP CONSULT TO GENERAL SURGERY General Surgery Consult Reason for Consult: R Inguinal hernia Requesting Provider: HPI: Loc Anderson is a 78 y.o. female with chief complaint of right inguinal hernia. Incidentally notedon CT scan. Patient hospitalized for cystitis. No obstructive symptoms. No pain associated with thehernia. She did not realize that she had one. Past Medical History: Diagnosis Date ??? A-fib [...] BILATERAL SALPINGOOPHORECTOMY 1981 Hysterectomy, total abdominal, BSO HOME MEDICATIONS : calcium carbonate/vitamin D3 (CALTRATE WITH VITAMIN D3 ORAL) cranberry extract-vitamin C 250-60 mg capsule albuterol HFA (PROAIR HFA) 90 mcg/actuation inhaler amitriptyline (ELAVIL) 25 mg tablet anastrozole (ARIMIDEX) 1 mg tablet artificial tears (SYSTANE) 0.3 % gel aspirin (ASPIRIN LOW DOSE) 81 mg tablet bromfenac 0.07 % drops clopidogrel (PLAVIX) 75 mg tablet cyanocobalamin (vitamin B-12) 1,000 mcg tablet empagliflozin (JARDIANCE) [address] (NexIUM) 40 mg capsule flecainide (TAMBOCOR) 50 mg tablet FREESTYLE LITE STRIPS strip furosemide (LASIX) 40 mg tablet glimepiride (AMARYL) 1 mg tablet latanoprost (XALATAN) 0.005 % ophthalmic solution levothyroxine (SYNTHROID) 25 mcg tablet menthol-zinc oxide (CALMOSEPTINE) 0.44-20.6 % ointment metOLazone (ZAROXOLYN) 2.5 mg tablet multivitamin (ONCE DAILY) tablet tablet polyethylene glycol (MIRALAX) 17 gram packet potassium chloride ER (KLOR-CON) 10 mEq CR tablet rosuvastatin (CRESTOR) 10 mg tablet SITagliptin (JANUVIA) 100 mg tablet spironolactone (ALDACTONE) 25 mg tablet verapamil ER (VERELAN) 120 mg 24 hr capsule Current Facility-Administered Medications Medication Dose Route Frequency Provider Last Rate Last Dose ??? acetaminophen (TYLENOL) tablet 650 mg 650 mg oral Q6H PRN Leslie Larsen MD ??? amitriptyline (ELAVIL) tablet 50 mg 50 mg oral Nightly Gay Escudero MD 50 mg at 05/14/192108 ??? anastrozole (ARIMIDEX) tablet 1 mg 1 mg oral Daily Gay Escudero MD 1 mg at 05/15/19925 ??? aspirin enteric coated tablet 81 mg 81 mg oral Daily Gay Escudero MD 81 mg at 05/15/19925 ??? bisacodyl EC (DULCOLAX EC) tablet 10 mg 10 mg oral Daily PRN Leslie Larsen MD ??? bromfenac 0.07 % drops 1 drop 1 drop each eye BID Gay Escudero MD ??? clopidogrel (PLAVIX) tablet 75 mg 75 mg oral Daily Gay Escudero MD 75 mg at 05/15/19925 ??? dextrose gel in packet 15 g 15 g oral Q15 Min PRN Gay Escudero MD Or ??? dextrose (D10W) 10% bolus 250 mL 250 mL intravenous Q15 Min PRN Gay Escudero MD ??? empagliflozin (JARDIANCE) tablet 10 mg 10 mg oral Daily Gay Escudero MD 10 mg at 05/15/19925 ??? flecainide (TAMBOCOR) tablet 50 mg 50 mg oral BID Gay Escudero MD 50 mg at 05/15/19925 ??? furosemide (LASIX) tablet 40 mg 40 mg oral Daily Gay Escudero MD 40 mg at 05/14/192108 ??? glucagon injection 1 mg 1 mg intramuscular Q30 Min PRN Gay Escudero MD ??? insulin lispro (HumaLOG) pen injection 1-3 Units 1-3 Units subcutaneous Q6H KATHARINE Gay Escudero MD ??? latanoprost (XALATAN) 0.005 % ophthalmic solution 1 drop 1 drop each eye Nightly Gay Escudero MD 1 drop at 05/14/192107 ??? levothyroxine (SYNTHROID) tablet 25 mcg 25 mcg oral Daily - 0600 Gay Escudero MD 25 mcg at 05/15/19 0601 ??? magnesium hydroxide (MILK OF MAGNESIA) 80 mg/mL (33.3 mg/mL as elemental magnesium) oral suspension 30 mL 30 mL oral Daily PRN Leslie Larsen MD ??? menthol-zinc oxide 0.44-20.6 % ointment topical TID PRN Gay Escudero MD ??? mineral oil (FLEET MINERAL OIL) enema 1 enema 1 enema rectal Daily PRN Leslie Larsen MD ??? ondansetron (ZOFRAN) injection 4 mg 4 mg intravenous Q4H PRN Leslie Larsen MD ??? piperacillin-tazobactam (ZOSYN) 3.375 g in sodium chloride 0.9% 50 mL IVPB 3.375 g intravenous Q6H KATHARINE Herman MD 130 mL/hr at 05/15/19 1149 3.375 g at 05/15/19 1149 ??? polyethylene glycol (MIRALAX) packet 17 g 17 g oral Daily Gay Escudero MD 17 g at 05/15/19 09 ??? polyvinyl alcohol (LIQUIFILM TEARS) 1.4 % ophthalmic solution 1 drop 1 drop each eye TID PRN Gay Escudero MD ??? potassium chloride ER (KLOR-CON) extended release tablet 40 mEq 40 mEq oral BID Gay Escudero MD 40 mEq at 05/15/19 09 ??? potassium, sodium phosphates (PHOS-NAK) 280-160-250 mg packet 2 packet 2 packet oral TID AC Maria Del Rosario Vences MD 2 packet at 05/15/19 1149 ??? sodium chloride 0.9% flush 0.5-20 mL 0.5-20 mL intra-catheter PRN Leslie Larsen MD 10 mL at 05/14/19 2321 ??? sodium chloride 0.9% flush 0.5-20 mL 0.5-20 mL intra-catheter Q8H Leslie Larsen MD 10 mL at 05/15/19 0600 ??? spironolactone (ALDACTONE) tablet 25 mg 25 mg oral Daily Gay Escudero MD 25 mg at 05/15/19928 ??? verapamil SR (CALAN SR) extended release tablet 120 mg 120 mg oral Daily Gay Escudero MD 120 mg at 05/15/19925 Allergies Allergen Reactions ??? Donepezil Other (See [...] Hypertension; Review of Systems: Review of Systems Gastrointestinal: Negative for abdominal distention, abdominal pain, nausea and vomiting. Vitals: 24hr Min/Max: Temp Min: 36.3 ??C (97.3 ??F) Max: 36.8 ??C (98.2 ??F) Pulse Min: 47 Max: 82 BP Min: 113/59 Max: 121/50 Resp Min: 18 Max: 20 SpO2 Min: 90 % Max: 91 % Most Recent : Vitals: 05/15/19 0812 BP: 121/50 Pulse: Resp: 20 Temp: 36.3 ??C (97.3 ??F) SpO2: 90% I/O last 2 completed shifts: In: 2524 [P.O.:840; I.V.:1554; IV Piggyback:130] Out: 4450 [Urine:4450] I/O this shift: In: 360 [P.O.:360] Out: - Objective: Physical Exam: Gen: WDWN female in NAD HEENT: NCAT, EOMI, No scleral icterus Neck: No adenopathy, normal range of motion, no thyromegaly Chest: CTAB, no wheezes or rhonchi, no tachypnea Cv: RRR, no M/R/G Breast: deferred Abd: Soft nontender nondistended. Unable to palpate the right inguinal hernia due to body habitus. She has an infraumbilical midline scar. Small umbilical hernia. Ext: No clubbing, cyanosis, or edema Rectal: deferred Skin: no rashes, bruises, or jaundice Neuro: no focal neurological deficits, gait not tested Psych: Mood and affect appropriate, no gross deficits in memory or insight Lab/Radiology/Diagnostic Review: Laboratory review: Lab results in the last 24 hours: Recent Results (from the past 24 hour(s)) POCT glucose Collection Time: 05/14/19 5:12 PM Result Value Ref Range Glucose, POC 119 (H) 71 - 98 mg/dL POCT glucose Collection Time: 05/14/19 11:20 PM Result Value Ref Range Glucose, POC 161 (H) 71 - 98 mg/dL POCT glucose Collection Time: 05/15/19 2:14 AM Result Value Ref Range Glucose, POC 123 (H) 71 - 98 mg/dL Phosphorus Collection Time: 05/15/19 4:28 AM Result Value Ref Range Phosphorus, pl 1.9 (L) 2.3 - 4.5 mg/dL Magnesium Collection Time: 05/15/19 4:28 AM Result Value Ref Range Magnesium 2.2 1.6 - 2.4 mg/dL CBC with auto differential Collection Time: 05/15/19 4:28 AM Result Value Ref Range WBC 11.0 (H) 3.8 - 9.9 K/cumm Hgb 12.4 11.9 - 15.5 g/dL Hct 38.6 35.6 - 45.5 % Plt 326 150 - 400 K/cumm MPV 10.5 9.1 - 12.3 fL RBC 4.68 3.90 - 5.20 M/cumm MCV 82.5 81.3 - 96.4 fL MCH 26.5 (L) 27.1 - 33.3 pg MCHC 32.1 (L) 32.3 - 35.7 g/dL RDW CV 16.6 (H) 11.1 - 14.9 % RDW SD 49.2 (H) 35.7 - 48.1 fL NRBC abs 0.00 0.00 - 0.01 K/cumm Comprehensive metabolic panel Collection Time: 05/15/19 4:28 AM Result Value Ref Range Sodium 140 135 - 145 mmol/L Potassium, pl 2.7 (Critical) 3.3 - 4.9 mmol/L Chloride 104 97 - 110 mmol/L CO2 24 22 - 32 mmol/L Anion gap 12 2 - 15 mmol/L BUN 14 8 - 25 mg/dL Creatinine 0.74 0.60 - 1.10 mg/dL Glucose 134 70 - 199 mg/dL Calcium 9.4 8.5 - 10.3 mg/dL Bilirubin, total 0.3 0.1 - 1.2 mg/dL Protein, pl 6.2 (L) 6.5 - 8.5 g/dL Albumin 3.5 3.5 - 5.0 g/dL Alk phos 76 40 - 130 Units/L ALT 28 7 - 45 Units/L AST 21 10 - 45 Units/L Differential, auto Collection Time: 05/15/19 4:28 AM Result Value Ref Range Neutrophil abs 7.6 (H) 1.7 - 6.5 K/cumm Imm gran abs 0.1 0.0 - 0.1 K/cumm Lymphocyte abs 1.5 0.8 - 3.3 K/cumm Monocyte abs 1.5 (H) 0.2 - 0.8 K/cumm Eosinophil abs 0.2 0.0 - 0.5 K/cumm Basophil abs 0.0 0.0 - 0.1 K/cumm Neutrophil pct 69.8 % Imm gran pct 0.5 % Lymphocyte pct 13.7 % Monocyte pct 13.6 % Eosinophil pct 2.0 % Basophil pct 0.4 % eGFR Collection Time: 05/15/19 4:28 AM Result Value Ref Range GFR 77 mL/min/1.73 m2 POCT glucose Collection Time: 05/15/19 8:16 AM Result Value Ref Range Glucose, POC 113 (H) 71 - 98 mg/dL POCT glucose Collection Time: 05/15/19 11:47 AM Result Value Ref Range Glucose, POC 167 (H) 71 - 98 mg/dL Imaging review: I have reviewed the result(s) Assessment: Principal Problem: Cystitis Active Problems: Weakness generalized DM (diabetes mellitus) (CMS/HCC) PAF (paroxysmal atrial fibrillation) (CMS/HCC) Lymphedema of both lower extremities CATY on CPAP Chronic diastolic congestive heart failure (CMS/HCC) Constipation Recurrent inguinal hernia Patient has a bowel containing right inguinal hernia. I explained that this is relatively high riskfor incarceration obstruction or strangulation. Plan: Following resolution of her acute infection and outpatient consultation we can probably schedule her for an elective repair. She will need to hold Plavix. Probably cardiac risk stratification. Sonny Palmer MD 05/15/2019 RNEY LAWYER * Migue Herman MD - 05/14/2019 7:45 PM CSTAssociated Order(s): IP CONSULT TO UROLOGY Urology Consult Consulting MD: Migue Herman MD I was requested by Dr. Escudero to see Loc Anderson for cystitis and blocked catheter HPI: Loc Anderson is a 78 y.o. female with history of neurogenic bladder managed by an outside urologist and on regular Galvez catheter presented to ER with blocked catheter and elevated white blood count. A CT of the abdomen and pelvis performed in the ER showed diffuse bladder wall thickening with head in the bladder (secondary to Galvez catheter versus emphysematous cystitis). Galvez catheter was changed and currently draining clear urine with few sediments. No problems with urinary drainage since admission. Preliminary urine culture report positive for Proteus mirabilis. Sensitivity awaited. Patient was initially started on ceftriaxone but her WBC count continues to rise. Today, she denies any suprapubic pain, fever or chills. Overnight urine output 2750 mL. No fever since admission Past Medical History: Diagnosis Date ??? A-fib [...] 2009 Ventral hernia repair with prolene mesh 9/10 ??? OTHER SURGICAL HISTORY 2012 URI/GERD: Medical Management ??? OTHER SURGICAL HISTORY ulcer removed from vocal cord ??? TOTAL ABDOMINAL HYSTERECTOMY W/ BILATERAL SALPINGOOPHORECTOMY 1980 Hysterectomy, total abdominal, BSO Social History Tobacco Use ??? Smoking status: Never Smoker ??? Smokeless tobacco: Never Used Substance Use Topics ??? Alcohol use: No Family History Problem Relation Age of Onset ??? Breast cancer Mother Cancer, breast; /Cancer -breast; ??? Heart failure Father Congestive heart failure; ??? Hypertension Brother Hypertension; ??? Hypertension Brother Hypertension; Medications Prior to Admission Medication Sig Dispense Refill Last Dose ??? calcium carbonate/vitamin D3 (CALTRATE WITH VITAMIN D3 ORAL) Take 1 tablet by mouth 2 (two) times a day 05/13/2019 at Unknown time ??? cranberry extract-vitamin C 250-60 mg capsule Take 2 tablets by mouth daily 05/13/2019 at Unknown time ??? albuterol HFA (PROAIR HFA) 90 mcg/actuation inhaler inhale 2 puff by inhalation route every 4 -6 hours as needed 0 Inhaler 0 Unknown at Unknown time ??? amitriptyline (ELAVIL) 25 mg tablet Take 50 mg by mouth nightly 05/12/2019 at Unknown time ??? anastrozole (ARIMIDEX) 1 mg tablet Take 1 mg by mouth daily 05/13/2019 at Unknown time ??? artificial tears (SYSTANE) 0.3 % gel Apply 1 drop to both eyes nightly as needed Unknown at Unknown time ??? aspirin (ASPIRIN LOW DOSE) 81 mg tablet take 1 tablet by oral route every day 0 0 05/13/2019 atUnknown time ??? bromfenac 0.07 % drops Administer 1 drop into affected eye(s) 2 (two) times a day 05/13/2019 atUnknown time ??? clopidogrel (PLAVIX) 75 mg tablet take 1 tablet by oral route every day (Patient taking differently: Take 75 mg by mouth nightly ) 0 0 05/12/2019 at Unknown time ??? cyanocobalamin (vitamin B-12) 1,000 mcg tablet take 1 tablet by oral route every day 0 0 05/12/2019 at Unknown time ??? empagliflozin (JARDIANCE) 10 mg tablet Take 10 mg by mouth daily 05/13/2019 at Unknown time ??? esomeprazole DR (NexIUM) 40 mg capsule TAKE 1 CAPSULE DAILY (Patient taking differently: Take 40 mg by mouth nightly ) 90 1 05/12/2019 at Unknown time ??? flecainide (TAMBOCOR) 50 mg tablet TAKE 1 TABLET TWICE A DAY 180 tablet 4 05/12/2019 at Unknowntime ??? FREESTYLE LITE STRIPS strip TEST BLOOD SUGARS TWICE A DAY DX E11.9.. 1 Unknown at Unknown time ??? furosemide (LASIX) 40 mg tablet Take 1 tablet (40 mg total) by mouth daily 30 tablet 11 05/13/2019 at Unknown time ??? glimepiride (AMARYL) 1 mg tablet TAKE 1 TABLET (1 MG) BY MOUTH 3 TIMES DAILY. 2 05/13/2019 at Unknown time ??? latanoprost (XALATAN) 0.005 % ophthalmic solution instill 1 drop by ophthalmic route every day into affected eye(s) in the evening (Patient taking differently: Administer 0.005 % into both eyes nightly ) 0 0 05/12/2019 at Unknown time ??? levothyroxine (SYNTHROID) 25 mcg tablet Take 25 mcg by mouth tick sewer before breakfast 05/13/2019 at Unknown time ??? menthol-zinc oxide (CALMOSEPTINE) 0.44-20.6 % ointment PRN 0 0 Unknown at Unknown time ??? metOLazone (ZAROXOLYN) 2.5 mg tablet Take 1 tablet (2.5 mg total) by mouth 2 (two) times a week(Patient taking differently: Take 2.5 mg by mouth 2 (two) times a week ) 30 tablet 1 05/13/2019 at Unknown time ??? multivitamin (ONCE DAILY) tablet tablet take 1 tablet by oral route every day with food 0 0 05/13/2019 at Unknown time ??? polyethylene glycol (MIRALAX) 17 gram packet Take 17 g by mouth daily ??? potassium chloride ER (KLOR-CON) 10 mEq CR tablet Take 4 tablet/capsule (40 mEq total) by mouth2 (two) times a day 05/13/2019 at Unknown time ??? rosuvastatin (CRESTOR) 10 mg tablet TAKE 1 TABLET BY MOUTH 1 TIME PER DAY AT BEDTIME 90 5 05/12/2019 at Unknown time ??? SITagliptin (JANUVIA) 100 mg tablet take 1 tablet by oral route every day 0 0 05/13/2019 at Unknown time ??? spironolactone (ALDACTONE) 25 mg tablet Take 1 tablet (25 mg total) by mouth daily 30 tablet 11107/14/2018 at Unknown time ??? verapamil ER (VERELAN) 120 mg 24 hr capsule Take 1 capsule (120 mg total) by mouth nightly 30 capsule 11 05/12/2019 at Unknown time Allergies Allergen Reactions ??? Donepezil Other (See comments) Reaction: unknown reaction, , , Reaction: yeast infection, ??? Black Pepper ??? Diltiazem Edema, Diarrhea and Other (See comments) Reaction: edema, , Reaction: diarrhea, , , Reaction: ankles swell, ??? Fluticasone Other (See comments) Reaction: colon problems, ??? Metformin Diarrhea Reaction: diarrhea, , ??? Salmeterol Other (See comments) Reaction: colon problems, Review of Systems: Review of Systems Constitutional: Negative. Respiratory: Negative. Cardiovascular: Negative. Gastrointestinal: Negative. Genitourinary: Negative. Neurological: Negative. Psychiatric/Behavioral: Negative. Vitals: Most Recent : Vitals: 05/14/19 1530 BP: 113/59 Pulse: (!) 47 Resp: 18 Temp: 36.8 ??C (98.2 ??F) SpO2: 91% I/O last 2 completed shifts: In: 1505 [P.O.:300; I.V.:1205] Out: 1550 [Urine:1550] Objective Physical Exam: Physical Exam Vitals signs and nursing note reviewed. HENT: Head: Normocephalic. Neck: Musculoskeletal: Normal range of motion. Cardiovascular: Rate and Rhythm: Normal rate. Pulmonary: Effort: Pulmonary effort is normal. Abdominal: General: Abdomen is flat. Palpations: Abdomen is soft. Tenderness: There is no right CVA tenderness or left CVA tenderness. Skin: General: Skin is warm. Neurological: Mental Status: She is alert and oriented to person, place, and time. Lab/Radiology/Diagnostic Review: Laboratory review: Chemistry BMP Lab Results Component Value Date GLUCOSE 119 (H) 05/14/2019 GLUCOSE 124 05/14/2019 CALCIUM 9.3 05/14/2019 SODIUM 136 05/14/2019 POTASSIUM 2.5 (Critical) 05/14/2019 CO2 25 05/14/2019 BUNSER 17 05/14/2019 CREATININE 0.68 05/14/2019 and CBC: Lab Results Component Value Date WBC 17.6 (H) 05/14/2019 RBC 4.80 05/14/2019 HGB 12.5 05/14/2019 HCT 39.5 05/14/2019 MCV 82.3 05/14/2019 MCH 26.0 (L) 05/14/2019 MCHC 31.6 (L) 05/14/2019 RDWCV 16.3 (H) 05/14/2019 RDWSD 48.3 (H) 05/14/2019 MPV 10.2 05/14/2019 NRBCABS 0.00 05/14/2019 Recent Results (from the past 24 hour(s)) POCT glucose Collection Time: 05/14/19 2:03 AM Result Value Ref Range Glucose, POC 191 (H) 71 - 98 mg/dL CBC with auto differential Collection Time: 05/14/19 3:47 AM Result Value Ref Range WBC 17.6 (H) 3.8 - 9.9 K/cumm Hgb 12.5 11.9 - 15.5 g/dL Hct 39.5 35.6 - 45.5 % Plt 342 150 - 400 K/cumm MPV 10.2 9.1 - 12.3 fL RBC 4.80 3.90 - 5.20 M/cumm MCV 82.3 81.3 - 96.4 fL MCH 26.0 (L) 27.1 - 33.3 pg MCHC 31.6 (L) 32.3 - 35.7 g/dL RDW CV 16.3 (H) 11.1 - 14.9 % RDW SD 48.3 (H) 35.7 - 48.1 fL NRBC abs 0.00 0.00 - 0.01 K/cumm Comprehensive metabolic panel Collection Time: 05/14/19 3:47 AM Result Value Ref Range Sodium 136 135 - 145 mmol/L Potassium, pl 2.5 (Critical) 3.3 - 4.9 mmol/L Chloride 99 97 - 110 mmol/L CO2 25 22 - 32 mmol/L Anion gap 12 2 - 15 mmol/L BUN 17 8 - 25 mg/dL Creatinine 0.68 0.60 - 1.10 mg/dL Glucose 124 70 - 199 mg/dL Calcium 9.3 8.5 - 10.3 mg/dL Bilirubin, total 0.3 0.1 - 1.2 mg/dL Protein, pl 6.1 (L) 6.5 - 8.5 g/dL Albumin 3.3 (L) 3.5 - 5.0 g/dL Alk phos 89 40 - 130 Units/L ALT 25 7 - 45 Units/L AST 25 10 - 45 Units/L Differential, auto Collection Time: 05/14/19 3:47 AM Result Value Ref Range Neutrophil abs 13.2 (H) 1.7 - 6.5 K/cumm Imm gran abs 0.1 0.0 - 0.1 K/cumm Lymphocyte abs 1.6 0.8 - 3.3 K/cumm Monocyte abs 2.5 (H) 0.2 - 0.8 K/cumm Eosinophil abs 0.1 0.0 - 0.5 K/cumm Basophil abs 0.0 0.0 - 0.1 K/cumm Neutrophil pct 75.2 % Imm gran pct 0.4 % Lymphocyte pct 9.2 % Monocyte pct 14.4 % Eosinophil pct 0.6 % Basophil pct 0.2 % eGFR Collection Time: 05/14/19 3:47 AM Result Value Ref Range GFR 83 mL/min/1.73 m2 POCT glucose Collection Time: 05/14/19 9:10 AM Result Value Ref Range Glucose, POC 96 71 - 98 mg/dL POCT glucose Collection Time: 05/14/19 12:11 PM Result Value Ref Range Glucose, POC 94 71 - 98 mg/dL POCT glucose Collection Time: 05/14/19 5:12 PM Result Value Ref Range Glucose, POC 119 (H) 71 - 98 mg/dL Assessment : Principal Problem: Cystitis Active Problems: Weakness generalized DM (diabetes mellitus) (CMS/HCC) PAF (paroxysmal atrial fibrillation) (CMS/HCC) Lymphedema of both lower extremities CATY on CPAP Chronic diastolic congestive heart failure (CMS/HCC) Constipation Recurrent inguinal hernia Plan: - follow urine culture report and antibiotics as per sensitivity - consider changing antibiotics piperacillin / sulbactam since her WBC count continues to rate in spite of ceftriaxone. - continue Galvez catheter - no active urological intervention required at present - patient can follow up in Urology office 2 weeks after discharge to establish urology care and further follow-up Thank you for allowing me to be a part of the care of your patient. Please call if you have any questions. Migue Herman MD Urology Division, Department of surgery, [employer], ([facility]) [facility], ([facility]) Office [phone] 05/14/2019 7:45 PM RNEY LAWYER documented in this encounter Nursing Notes * Madhavi Aguirre RN - 05/16/2019 1:35 PM CST Discharge instructions and prescriptions explained to patient and . 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 Verbalized understanding of instructions. Dischargedto home per wheelchair to car accompanied by staff and . RNEY LAWYER documented in this encounter ED Notes * Kelly Garcia MD - 05/13/2019 1:38 PM CST HPI Chief Complaint Patient presents with ??? Urinary Problem 1:21 PM 05/13/2019 78 year old female with PMHx of DM, HTN and hypokalemia presents to the ED complaining of her foleycatheter not draining. Patient states she is unable to pass urine and is in a lot of abdominal pain. Per who is at bedside, Pt has not urinated since yesterday evening and she has been Constipated as well.Her PCP recommended drinking 64 oz of water per day to clear up urine sediments. Her last normal bowel movement was 2 wks ago. Pt is currently taking amoxicillin for a bladder infection. History provided by: Spouse and patient interpreter translator used: No Patient History Patient Active Problem List Diagnosis Date Noted ??? Breast cancer (CMS/HCC) 10/01/2017 Priority: Medium ??? Weakness generalized 10/01/2017 Priority: Medium ? ? Nausea & vomiting 10/01/2017 Priority: Medium ??? DM (diabetes mellitus) (CMS/HCC) 10/01/2017 Priority: Medium ??? PAF (paroxysmal atrial fibrillation) (CMS/[facility]) 10/01/2017 Priority: Low ??? Lymphedema of both lower extremities 10/01/2017 Priority: Low ??? CATY on CPAP 10/01/2017 Priority: Low ??? Multiple falls ??? Fall 03/19/2019 ??? Hypokalemia 03/19/2019 ??? Hypercalcemia 03/19/2019 ??? Peripheral edema ??? Chronic diastolic congestive heart failure (CMS/HCC) 10/03/2017 ??? Pure hypercholesterolemia 08/30/2015 Class: Chronic ??? Asthma 02/17/2013 Class: Chronic ??? Hypokalemia 02/17/2013 Class: Chronic ??? Chronic ischemic heart disease 11/06/2011 Class: Chronic ??? Adiposity 11/06/2011 Class: Chronic ??? Atherosclerosis of coronary artery bypass graft 07/02/2011 Class: Chronic Past Medical History: Diagnosis Date ??? A-fib [...] No ??? Drug use: No Social History Patient does not qualify to have social determinant information on file (likely too young). Social History Narrative Lives at home. Review of Systems Review of Systems Constitutional: Negative. Negative for activity change, appetite change, chills, diaphoresis, fatigue, fever and unexpected weight change. HENT: Negative. Negative for congestion, facial swelling, nosebleeds, rhinorrhea and sore throat. Eyes: Negative. Negative for photophobia, discharge, redness and visual disturbance. Respiratory: Negative. Negative for apnea, cough, chest tightness, shortness of breath and wheezing. Cardiovascular: Negative. Negative for chest pain, palpitations and leg swelling. Gastrointestinal: Positive for abdominal pain. Negative for abdominal distention, anal bleeding, blood in stool, constipation, diarrhea, nausea, rectal pain and vomiting. Endocrine: Negative. Negative for cold intolerance, heat intolerance, polydipsia, polyphagia and polyuria. Genitourinary: Negative. Negative for decreased urine volume, difficulty urinating, dysuria, flank pain, frequency, hematuria and urgency. Musculoskeletal: Negative. Negative for arthralgias, back pain, gait problem, joint swelling, myalgias, neck pain and neck stiffness. Skin: Negative. Negative for color change, pallor, rash and wound. Allergic/Immunologic: Negative for immunocompromised state. Neurological: Negative. Negative for dizziness, tremors, seizures, syncope, facial asymmetry, speech difficulty, weakness, light-headedness, numbness and headaches. Hematological: Negative. Does not bruise/bleed easily. Psychiatric/Behavioral: Negative. Negative for agitation, behavioral problems and confusion. All other systems reviewed and are negative. Physical Exam ED Triage Vitals Temp Pulse Resp BP SpO2 05/13/19 1240 05/13/19 1240 05/13/19 1240 05/13/19 1240 05/13/19 1240 37 ??C (98.6 ??F) 99 18 148/84 95 % Temp src Heart Rate Source Patient Position BP Location FiO2 (%) 05/13/191945 -- 05/13/19194505/13/191945 -- Temporal Lying;Sitting Right arm Physical Exam Vitals signs and nursing note reviewed. Constitutional: General: She is not in acute distress. Appearance: She is well-developed. She is obese. She is not diaphoretic. Comments: Moderate distress, strong urine smell, no urine in the galvez catheter, dress soaked in urine. HENT: Head: Normocephalic and atraumatic. Mouth/Throat: Pharynx: No oropharyngeal exudate. Eyes: Conjunctiva/sclera: Conjunctivae normal. Pupils: Pupils are equal, round, and reactive to light. Neck: Musculoskeletal: Normal range of motion and neck supple. Thyroid: No thyromegaly. Vascular: No JVD. Trachea: No tracheal deviation. Cardiovascular: Rate and Rhythm: Normal rate and regular rhythm. Heart sounds: Normal heart sounds. Pulmonary: Effort: Pulmonary effort is normal. No respiratory distress. Breath sounds: Normal breath sounds. No stridor. No wheezing or rales. Abdominal: General: Bowel sounds are normal. There is no distension. Palpations: Abdomen is soft. There is no mass. Tenderness: There is tenderness (lower ). There is no guarding or rebound. Musculoskeletal: Normal range of motion. General: No tenderness or deformity. Lymphadenopathy: Cervical: No cervical adenopathy. Skin: General: Skin is warm and dry. Capillary Refill: Capillary refill takes less than 2 seconds. Coloration: Skin is not pale. Findings: No erythema or rash. Neurological: Mental Status: She is alert and oriented to person, place, and time. Cranial Nerves: No cranial nerve deficit. Sensory: No sensory deficit. Motor: No abnormal muscle tone. Coordination: Coordination normal. Psychiatric: Behavior: Behavior normal. Thought Content: Thought content normal. [facility] Labs Reviewed URINALYSIS AND REFLEX TO MICROSCOPIC AND CULTURE - Abnormal Result Value Color, ur Yellow Clarity, ur Turbid (*) Specific gravity, ur 1.011 pH, urine 7.0 Protein, ur ql 2+ (*) Glucose, ur ql 2+ (*) Ketones, ur Negative Bilirubin, ur Negative Blood, ur 3+ (*) Urobilinogen, ur 0.2 Nitrite, ur Negative Leukocyte esterase, ur 3+ (*) UA reflex comment Reflex to microscopic UA will be performed. Narrative: Urine pH is affected by diet, medications, systemic acid-base disturbances, and renal tubular function. pH may affect urinary stone formation. For example, urine pH below 6.0 may help reduce the tendency for calcium phosphate stones and pH greater than 6.0 may reduce the tendency for uric acid stone formation. Source: [facility].Last revised 05-29-2017 CBC WITH AUTO DIFFERENTIAL - Abnormal WBC 15.2 (*) Hgb 14.6 Hct 46.4 (*) Plt 393 MPV 10.1 RBC 5.52 (*) MCV 84.1 MCH 26.4 (*) MCHC 31.5 (*) RDW CV 16.5 (*) RDW SD 49.3 (*) NRBC abs 0.00 COMPREHENSIVE METABOLIC PANEL - Abnormal Sodium 135 Potassium, pl 3.4 Chloride 95 (*) CO2 26 Anion gap 14 BUN 24 Creatinine 1.11 (*) Glucose 294 (*) Calcium 10.8 (*) Bilirubin, total 0.3 Protein, pl 7.7 Albumin 4.3 Alk phos 112 ALT 23 AST 21 SEPSIS LACTATE WITH REFLEX - Abnormal Sepsis Lactate 3.0 (*) DIFFERENTIAL AUTO - Abnormal Neutrophil abs 12.7 (*) Imm gran abs 0.1 Lymphocyte abs 0.9 Monocyte abs 1.4 (*) Eosinophil abs 0.1 Basophil abs 0.1 Neutrophil pct 83.6 Imm gran pct 0.4 Lymphocyte pct 5.7 Monocyte pct 9.4 Eosinophil pct 0.5 Basophil pct 0.4 SEPSIS LACTATE WITH REFLEX - Abnormal Sepsis Lactate 2.5 (*) SEPSIS LACTATE WITH REFLEX - Abnormal Sepsis Lactate 2.9 (*) URINALYSIS, MICROSCOPIC ONLY - Abnormal WBC, ur >50 (*) RBC, ur >50 (*) Epithelial cells, squamous, ur 1-5 Bacteria, ur Negative Hyaline casts, ur 6-10 Culture Reflex Comment Reflex to urine culture will be performed. POCT GLUCOSE DEVICE - Abnormal Glucose, POC 268 (*) BLOOD CULTURE BLOOD CULTURE URINE CULTURE EGFR GFR 47 CBC WITH AUTO DIFFERENTIAL COMPREHENSIVE METABOLIC PANEL CT Abdomen Pelvis WO Contrast Final Result 1. GALVEZ CATHETER IS PRESENT IN THE BLADDER. THERE IS EXTENSIVE EDEMA AROUND THE BLADDER CONSISTENT WITH EXTENSIVE INFLAMMATORY CHANGES WITH THICKENING OF THE BLADDER WALL AND MILD DILATATION OF BOTH URETERS. SUGGEST FURTHER UROLOGY EVALUATION. 2. CHOLECYSTECTOMY, APPENDECTOMY AND HYSTERECTOMY. 3. VERY LARGE AMOUNT OF FECAL MATERIAL DIFFUSELY THROUGHOUT THE COLON. 4. RIGHT INGUINAL HERNIA CONTAINING A SMALL SEGMENT OF NONDILATED SMALL BOWEL. Electronically signed by: Raghu Gutierrez M.D. BP 116/72 Pulse 86 Temp 36.2 ??C (97.2 ??F) (Temporal) Resp 20 Ht 165.1 cm (5' 5 ) Wt 80.8 kg (178 lb 3.2 oz) SpO2 95% BMI 29.65 kg/m?? Procedures MDM ED Course as of May 13 2117 Time: 05/13 153 Comment: Spoke with Batsheva, Urology, who reviewed CT findings. 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 By: Geovanna Olivas Time: 05/13 154 Comment: Discussed CT findings with patient and and recommendation for admission. Patient had a panic attack and started hyperventilating stating she doesn't feel well. Pt placed on monitor. Will contact hospitalist later. By: Geovanna Olivas Time: 05/13 1616 Comment: Discussed patient's case with Dr. Larsen hospitalist, who accepts the patient for admission. By: Geovanna Olivas DISPOSITION :ADMIT Emphysematous cystitis Leukocytosis, unspecified type Geovanna Olivas scribed for Kelly Hartley in the doctor's presence. I electronically signed this note at 1:57 PM on 05/13/2019. I, Kelly Hartley, have personally performed the services described in the documentation , reviewed the documentation, as recorded by the scribe in my presence, and it accurately and completely records my words and actions. Kelly Garcia MD 05/13/192117 [employer] * Matty Florez RN - 05/13/2019 12:38 PM CST Pt presents to the ED for a possible blocked galvez catheter [employer] documented in this encounter Miscellaneous Notes * Plan of Care - Madhavi Aguirre RN - 05/16/2019 1:31 PM CST Problem: Health Behavior: Goal: Understanding of discharge needs will improve Outcome: Completed Problem: Lack of Knowledge: Goal: Ability to state ways to decrease the risk of falls will improve Outcome: Completed Problem: Safety: Goal: Will remain free from falls Outcome: Completed Goal: Will remain free from injury from falls Outcome: Completed Goal: Will remain free from falls and injury in home environment Outcome: Completed Problem: Lack of Knowledge: Goal: Ability to state signs and symptoms to report to health care provider will improve Outcome: Completed Goal: Understanding of ways to prevent infection will improve Outcome: Completed Problem: Nutritional: Goal: Nutritional status will improve Outcome: Completed Problem: Physical Regulation: Goal: Diagnostic test results will improve Outcome: Completed Goal: Will remain free from infection Outcome: Completed Goal: Ability to maintain vital signs within normal range will improve Outcome: Completed Problem: Urinary Elimination: Goal: Amount of urine per voiding will increase Outcome: Completed Goal: Experiences of bladder distention will decrease Outcome: Completed Goals: Clinical Goals for the Shift: patient to have no abd pain and pain control to neck Summary:No complaints of abd pain voiced. Galvez catheter in place and draining adequate amount of urine. Patient to be dc'd with catheter and follow up with urologist. [employer] * Plan of Care - Rosa Maria Queen RN - 05/16/2019 3:03 AM CST Goals: Clinical Goals for the Shift: Pt will remain hemodynamically stable and VSS Summary: Pt remains hemodynamically stable. VSS. Pt states that pain is controlled. [employer] * Plan of Care - Joe Ferraro RN - 05/15/2019 3:26 PM CST Problem: Health Behavior: Goal: Understanding of discharge [...] injury in home environment Outcome: Progressing Problem: Lack of Knowledge: Goal: Ability to state signs and symptoms to report to health care provider will improve Outcome: Progressing Goal: Understanding of ways to prevent infection will improve Outcome: Progressing Problem: Nutritional: Goal: Nutritional status will improve Outcome: Progressing Problem: Physical Regulation: Goal: Diagnostic test results will improve Outcome: Progressing Goal: Will remain free from infection Outcome: Progressing Goal: Ability to maintain vital signs within normal range will improve Outcome: Progressing Problem: Urinary Elimination: Goal: Amount of urine per voiding will increase Outcome: Progressing Goal: Experiences of bladder distention will decrease Outcome: Progressing Goals: Clinical Goals for the Shift: vs stable, pain control, remain free of falls/injury Summary: no complaints of pain. Up to chair. Diarrhea. Blood sugar within normal limits.Pt resting in bed, will continue to monitor. [employer] * Plan of Care - Maryjane Hewitt RN - 05/15/2019 5:51 AM CST Problem: Health Behavior: Goal: Understanding of discharge [...] injury in home environment Outcome: Progressing Problem: Lack of Knowledge: Goal: Ability to state signs and symptoms to report to health care provider will improve Outcome: Progressing Goal: Understanding of ways to prevent infection will improve Outcome: Progressing Problem: Nutritional: Goal: Nutritional status will improve Outcome: Progressing Problem: Physical Regulation: Goal: Diagnostic test results will improve Outcome: Progressing Goal: Will remain free from infection Outcome: Progressing Goal: Ability to maintain vital signs within normal range will improve Outcome: Progressing Problem: Urinary Elimination: Goal: Experiences of bladder distention will decrease Outcome: Progressing Problem: Urinary Elimination: Goal: Amount of urine per voiding will increase Outcome: Defer Goals: Clinical Goals for the Shift: VSS and labs wnl, galvez draining clear urine without difficulty, paincontrolled, improved strength and mobility, no falls or injuries. Summary: Pt rested per bed overnight, rec'd home meds as ordered and has denied any complaints since bedtime. K level came back this morning only slightly improved from yesterday, orders entered after MD notified. Pt is also on electrolyte protocol. Galvez draining yellow urine with some sediment noted. Pt notes feeling a little better. Continue with current plan of care, assist with ADLs as needed, encourage more activity with assistance. Notify MD as needed of changes. [employer] * Plan of Care - Joe Ferraro RN - 05/14/2019 6:55 PM CST Problem: Health Behavior: Goal: Understanding of discharge [...] injury in home environment Outcome: Progressing Problem: Lack of Knowledge: Goal: Ability to state signs and symptoms to report to health care provider will improve Outcome: Progressing Goal: Understanding of ways to prevent infection will improve Outcome: Progressing Problem: Nutritional: Goal: Nutritional status will improve Outcome: Progressing Problem: Physical Regulation: Goal: Diagnostic test results will improve Outcome: Progressing Goal: Will remain free from infection Outcome: Progressing Goal: Ability to maintain vital signs within normal range will improve Outcome: Progressing Problem: Urinary Elimination: Goal: Amount of urine per voiding will increase Outcome: Progressing Goal: Experiences of bladder distention will decrease Outcome: Progressing Goals: Clinical Goals for the Shift: vs stable, pain control, remain free of falls/injury Summary: no complaints of pain. Dressed buttock wound. Pt blood sugar within normal limits. Pt resting in bed, will continue to monitor. [employer] * Plan of Care - Glo Zhou RN - 05/14/2019 12:37 PM CST If patient should discharge over the weekend, she will need a resume order for [facility] for RN/PT/OT. [facility] can be called at P:[phone]. They will want the H&P, D/C summary and HH order faxed to [phone]. [employer] * Plan of Care - Brooke Casillas RN - 05/14/2019 4:38 AM CST Goals: Clinical Goals for the Shift: Settle patient to MCU, admit patient to hospital, pt to remain free of falls and injuries, Summary: Pt calm and cooperative during shift. No injuries or falls occurred. Pt c/o slight tenderness in the abdomen. When asked the last time she had a BM she states that its been awhile since she has had a regular BM and went on to say the last three days its been loose but before then she was blocked up. Pt came up from ER with 2L of O2 but she took it off and said she didn't need it. Pt sating fine and O2 was turned off. Pt has a 20 Fr galvez placed and was placed NPO at midnight. While assessing abdomen I noticed what looks like a hernia near the umbilicus but pt states she wasn't told she had one. Will continue to monitor. Problem: Health Behavior: Goal: Understanding of discharge [...] injury in home environment Outcome: Progressing Problem: Lack of Knowledge: Goal: Ability to state signs and symptoms to report to health care provider will improve Outcome: Progressing Goal: Understanding of ways to prevent infection will improve Outcome: Progressing Problem: Nutritional: Goal: Nutritional status will improve Outcome: Progressing Problem: Physical Regulation: Goal: Diagnostic test results will improve Outcome: Progressing Goal: Ability to maintain vital signs within normal range will improve Outcome: Progressing Problem: Urinary Elimination: Goal: Amount of urine per voiding will increase Outcome: Progressing Goal: Experiences of bladder distention will decrease Outcome: Progressing [employer] documented in this encounter Plan of Treatment Not on file documented as of this encounter Procedures Procedure Name Priority Date/Time Associated Diagnosis Comments POCT GLUCOSE DEVICE Routine 05/16/2019 1 1:55 AM [employer] POCT GLUCOSE DEVICE Routine 05/16/2019 7 :55 AM [employer] EGFR Routine 05/16/2019 4:34 AM [employer] DIFFERENTIAL AUTO Routine 05/16/2019 4:3 4 AM [employer] CBC WITH AUTO DIFFERENTIAL Routine 05/16/2019 4:34 AM [employer] PHOSPHORUS Routine 05/16/2019 4:34 AM [employer] MAGNESIUM Routine 05/16/2019 4:34 AM [employer] COMPREHENSIVE METABOLIC PANEL Routine 05/16/2019 4:34 AM [employer] POCT GLUCOSE DEVICE Routine 05/16/2019 2 :24 AM [employer] POCT GLUCOSE DEVICE Routine 05/15/2019 8 :19 PM [employer] POCT GLUCOSE DEVICE Routine 05/15/2019 5 :01 PM [employer] POTASSIUM LEVEL Timed 05/15/2019 1:58 PM [employer] POCT GLUCOSE DEVICE Routine 05/15/2019 1 1:47 AM [employer] POCT GLUCOSE DEVICE Routine 05/15/2019 8 :16 AM [employer] EGFR Routine 05/15/2019 4:28 AM [employer] DIFFERENTIAL AUTO Routine 05/15/2019 4:2 8 AM [employer] CBC WITH AUTO DIFFERENTIAL Routine 05/15/2019 4:28 AM [employer] PHOSPHORUS Routine 05/15/2019 4:28 AM [employer] MAGNESIUM Routine 05/15/2019 4:28 AM [employer] COMPREHENSIVE METABOLIC PANEL Routine 05/15/2019 4:28 AM [employer] POCT GLUCOSE DEVICE Routine 05/15/2019 2 :14 AM [employer] POCT GLUCOSE DEVICE Routine 05/14/2019 1 1:20 PM [employer] POCT GLUCOSE DEVICE Routine 05/14/2019 5 :12 PM [employer] POCT GLUCOSE DEVICE Routine 05/14/2019 1 2:11 PM [employer] POCT GLUCOSE DEVICE Routine 05/14/2019 9 :10 AM [employer] EGFR Routine 05/14/2019 3:47 AM [employer] DIFFERENTIAL AUTO Routine 05/14/2019 3:4 7 AM [employer] CBC WITH AUTO DIFFERENTIAL Routine 05/14/2019 3:47 AM [employer] COMPREHENSIVE METABOLIC PANEL Routine 05/14/2019 3:47 AM [employer] POCT GLUCOSE DEVICE Routine 05/14/2019 2 :03 AM [employer] SEPSIS LACTATE WITH REFLEX Timed 05/13/2019 6:51 PM [employer] SEPSIS LACTATE WITH REFLEX Timed 05/13/2019 4:37 PM [employer] ECG 12-LEAD STAT 05/13/2019 4:11 PM [employer] POCT GLUCOSE DEVICE Routine 05/13/2019 4 :[address] ABDOMEN PELVIS WO CONTRAST ED 05/13/2019 2:48 PM [employer] URINALYSIS AND REFLEX TO MICROSCOPIC AND CULTURE STAT 05/13/2019 2:13 PM [employer] URINALYSIS, MICROSCOPIC ONLY STAT 05/13/2019 2:13 PM [employer] URINE CULTURE STAT 05/13/2019 2:13 PM [employer] SEPSIS LACTATE WITH REFLEX STAT 05/13/2019 2:02 PM [employer] EGFR STAT 05/13/2019 2:02 PM [employer] DIFFERENTIAL AUTO STAT 05/13/2019 2:0 2 PM [employer] CBC WITH AUTO DIFFERENTIAL STAT 05/13/2019 2:02 PM [employer] BLOOD CULTURE STAT 05/13/2019 2:02 PM [employer] BLOOD CULTURE STAT 05/13/2019 2:02 PM [employer] COMPREHENSIVE METABOLIC PANEL STAT 05/13/2019 2:02 PM [employer] documented in this encounter Results * (ABNORMAL) POCT glucose (05/16/2019 11:55 AM [employer]) Glucose, POC 115(H) 71 - 98 mg/dL [facility] ([place]) Blood specimen (specimen) 05/16/2019 11:55 AM [employer] 05/16/2019 11:55 AM [employer] us Gay Escudero MD LAB POCT ORDERABLES - DEVICE Fin al Result [facility] ([place]) [address] [facility] [place] [address] * (ABNORMAL) POCT glucose (05/16/2019 7:55 AM [employer]) Glucose, POC 107(H) 71 - 98 mg/dL [facility] ([place]) Blood specimen (specimen) 05/16/2019 7:55 AM [employer]ER 05/16/2019 7:55 AM [employer]ER Gay Escudero MD LAB POCT ORDERABLES - DEVICE Fin al Result Performing Organization Address City/[facility]/ZIP Co de Phone Number [facility] ([place]) [address] [facility] [place] [address] * eGFR (05/16/2019 4:34 AM [employer]) eGFR 83 mL/min/1.7 3 m2 [facility] ([place]) Comment: Interpretive Data Reference Interval Normal ?>/= 90 mL/min/1.73m2 Mildly decreased* ? 60 - 89 mL/min/1.73m2 Mildly to moderately decreased ?45 - 59 mL/min/1.73m2 Moderately to severely decreased ??30 - 44 mL/min/1.73m2 Severely decreased ?15 - 29 mL/min/1.73m2 Kidney Failure ?< 15 ??mL/min/1.73m2 *Relative to young adult level If -Citizen Of [place] multiply value by 1.16. Estimated glomerular filtration rate is determined by [...] 70. Current interpretive data was last reviewed 2015. Blood specimen (specimen) 05/16/2019 4:34 AM [employer]NEY [employer]ER 05/16/2019 5:11 AM [employer] us Gay Escudero MD LAB BLOOD ORDERABLES Final Resul t [facility] ([place]) 1 [facility] Department [place] [address] * (ABNORMAL) Differential, auto (05/16/2019 4:34 AM [employer]) Neutrophil abs 5.7 1.7 - 6.5 K/cumm [facility] ([place]) Imm gran abs 0.1 0.0 - 0.1 K/cumm [facility] ([place]) Lymphocyte abs 1.4 0.8 - 3.3 K/cumm [facility] ([place]) Monocyte abs 1.2(H) 0.2 - 0.8 K/cumm [facility] ([place]) Eosinophil abs 0.3 0.0 - 0.5 K/cumm [facility] ([place]) Basophil abs 0.0 0.0 - 0.1 K/cumm [facility] ([place]) Neutrophil pct 65.6 % [facility] ([place]) Comment: Interpretive Data Percent cell count reference ranges are not reported, since discordance with absolute values may lead to misinterpretation of CBC data. Current Interpretive Data was last revised on 2017. Imm gran pct 1.0 % [facility] ([place]) Comment: Interpretive Data Percent cell count reference ranges are not reported, since discordance with absolute values may lead to misinterpretation of CBC data. Current Interpretive Data was last revised on 2017. Lymphocyte pct 16.3 % [facility] ([place]) Comment: Interpretive Data Percent cell count reference ranges are not reported, since discordance with absolute values may lead to misinterpretation of CBC data. Current Interpretive Data was last revised on 2017. Monocyte pct 13.8 % [facility] ([place]) Comment: Interpretive Data Percent cell count reference ranges are not reported, since discordance with absolute values may lead to misinterpretation of CBC data. Current Interpretive Data was last revised on 2017. Eosinophil pct 3.0 % [facility] ([place]) Comment: Interpretive [...] last revised on 2017. Blood specimen (specimen) 05/16/2019 4:34 AM [employer]ER 05/16/2019 5:09 AM [employer]ER Gay Escudero MD LAB BLOOD ORDERABLES Final Resul t Performing Organization Address City/[facility]/ZIP Co de Phone Number [facility] ([place]) [address] [facility] [place] [address] * Magnesium (05/16/2019 4:34 AM [employer]NEY [employer]ER) Magnesium 2.4 1.6 - 2.4 mg/dL [facility] ([place]) Blood specimen (specimen) 05/16/2019 4:34 AM [employer]ER 05/16/2019 5:11 AM [employer] Carli Pozo MD LAB BLOOD ORDERABLES Final Re sult [facility] ([place]) [address] [facility] [place] [address] * (ABNORMAL) Phosphorus (05/16/2019 4:34 AM [employer]NEY [employer]ER) Phosphorus, pl 2.2(L) 2.3 - 4.5 mg/dL [facility] ([place]) Blood specimen (specimen) 05/16/2019 4:34 AM [employer]ER 05/16/2019 5:11 AM [employer]NEY [employer]ER us Carli Pozo MD LAB BLOOD ORDERABLES Final Re sult [facility] ([place]) 1 [facility] [employer] [place] [address] * (ABNORMAL) CBC with auto differential (05/16/2019 4:34 AM [employer]ORNEY [employer]ER) WBC 8.7 3.8 - 9.9 K/cumm [facility] ([place]) Hgb 12.2 11.9 - 15.5 g/dL [facility] ([place]) Hct 39.3 35.6 - 45.5 % [facility] ([place]) Plt 324 150 - 400 K/cumm [facility] ([place]) MPV 10.2 9.1 - 12.3 fL [facility] ([place]) RBC 4.66 3.90 - 5.20 M/cumm [facility] ([place]) MCV 84.3 81.3 - 96.4 fL [facility] ([place]) MCH 26.2(L) 27.1 - 33.3 pg [facility] ([place]) MCHC 31.0(L) 32.3 - 35.7 g/dL [facility] ([place]) RDW CV 16.6(H) 11.1 - 14.9 % [facility] ([place]) RDW SD 50.6(H) 35.7 - 48.1 fL [facility] ([place]) NRBC abs 0.00 0.00 - 0.01 K/cumm [facility] ([place]) Blood specimen (specimen) 05/16/2019 4:34 AM ATTORNEY [employer]ER 05/16/2019 5:09 AM ATTORNEY [employer]ER us Gay Escudero MD LAB BLOOD ORDERABLES Final Resul t [facility] ([place]) 1 [facility] [place] [address] * (ABNORMAL) Comprehensive metabolic panel (05/16/2019 4:34 AM ATTORNEY [employer]ER) Sodium 141 135 - 145 mmol/L [facility] ([place]) Potassium, pl 4.2 3.3 - 4.9 mmol/L [facility] ([place]) Chloride 109 97 - 110 mmol/L [facility] ([place]) CO2 22 22 - 32 mmol/L [facility] ([place]) Anion gap 10 2 - 15 mmol/L [facility] ([place]) BUN 12 8 - 25 mg/dL [facility] ([place]) Creatinine 0.68 0.60 - 1.10 mg/dL [facility] ([place]) Glucose 130 70 - 199 mg/dL [facility] ([place]) [...] 1.2 mg/dL [facility] ([place]) Protein, pl 6.1(L) 6.5 - 8.5 g/dL [facility] ([place]) Albumin 3.1(L) 3.5 - 5.0 g/dL [facility] ([place]) Alk phos 80 40 - 130 Units/L [facility] ([place]) ALT 23 7 - 45 Units/L [facility] ([place]) AST 18 10 - 45 Units/L [facility] ([place]) Blood specimen (specimen) 05/16/2019 4:34 AM ATTORNEY [employer]ER 05/16/2019 5:11 AM ATTORNEY [employer]ER us Gay Escudero MD LAB BLOOD ORDERABLES Final Resul t [facility] ([place]) 1 [facility] Department [place] [address] * (ABNORMAL) POCT glucose (05/16/2019 2:24 AM ATTORNEY [employer]ER) Glucose, POC 156(H) 71 - 98 mg/dL [facility] ([place]) Blood specimen (specimen) 05/16/2019 2:24 AM ATTORNEY [employer]YER 05/16/2019 2:24 AM [employer]NEY [employer]ER Gay Escudero MD LAB POCT ORDERABLES - DEVICE Fin al Result Performing Organization Address City/[facility]/ZIP Co de Phone Number [facility] [address] [facility] [place] [address] * (ABNORMAL) POCT glucose (05/15/2019 8:19 PM ATTORNEY LAWYER) Glucose, POC 177(H) 71 - 98 mg/dL [facility] ([place]) Blood specimen (specimen) 05/15/2019 8:19 PM ATTORNEY LAWYER 05/15/2019 8:19 PM ATTORNEY LAWYER Gay Escudero MD LAB POCT ORDERABLES - DEVICE Fin al Result Performing Organization Address City/[facility] Co de Phone Number [facility] ([place]) [address] [facility] [employer] [place] [address] * (ABNORMAL) POCT glucose (05/15/2019 5:01 PM ATTORNEY LAWYER) Glucose, POC 129(H) 71 - 98 mg/dL [facility] ([place]) Blood specimen (specimen) 05/15/2019 5:01 PM ATTORNEY LAWYER 05/15/2019 5:01 PM ATTORNEY LAWYER Gay Escudero MD LAB POCT ORDERABLES - DEVICE Fin al Result Performing Organization Address City/[facility] Co de Phone Number [facility] [address] [facility] [employer] [place] [address] * Potassium (05/15/2019 1:58 PM ATTORNEY LAWYER) Potassium, pl 3.7 3.3 - 4.9 mmol/L [facility] ([place]) Blood specimen (specimen) 05/15/2019 1:58 PM ATTORNEY LAWYER 05/15/2019 2:11 PM ATTORNEY LAWYER Maria Del Rosario Vences MD LAB BLOOD ORDERABLES Final Resul t Performing Organization Address [facility] Co de Phone Number [facility] ([place]) [address] [facility] [employer] [place] [address] * (ABNORMAL) POCT glucose (05/15/2019 11:47 AM ATTORNEY LAWYER) Glucose, POC 167(H) 71 - 98 mg/dL [facility] ([place]) Blood specimen (specimen) 05/15/2019 11:47 AM ATTORNEY LAWYER 05/15/2019 11:47 AM ATTORNEY LAWYER Gay Escudero MD LAB POCT ORDERABLES - DEVICE Fin al Result Performing Organization Address [facility] de Phone Number [facility] ([place]) [address] [facility] [employer] [place] [address] * (ABNORMAL) POCT glucose (05/15/2019 8:16 AM ATTORNEY LAWYER) Glucose, POC 113(H) 71 - 98 mg/dL [facility] Blood specimen (specimen) 05/15/2019 8:16 AM ATTORNEY LAWYER 05/15/2019 8:16 AM ATTORNEY LAWYER Gay Escudero MD LAB POCT ORDERABLES - DEVICE Fin al Result Performing Organization Address [facility] de Phone Number [facility] ([place]) [address] [facility] [employer] [place] [address] * eGFR (05/15/2019 4:28 AM ATTORNEY LAWYER) eGFR 77 mL/min/1.7 3 m2 [facility] Comment: Interpretive Data Reference Interval Normal ?>/= 90 mL/min/1.73m2 Mildly decreased* ? 60 - 89 mL/min/1.73m2 Mildly to moderately decreased ?45 - 59 mL/min/1.73m2 Moderately to severely decreased ??30 - 44 mL/min/1.73m2 Severely decreased ?15 - 29 mL/min/1.73m2 Kidney Failure ?< 15 ??mL/min/1.73m2 *Relative to young adult level If -Citizen Of [place] multiply value by 1.16. Estimated glomerular filtration rate is determined by [...] 70. Current interpretive data was last reviewed 2015. Blood specimen (specimen) 05/15/2019 4:28 AM ATTORNEY LAWYER 05/15/2019 4:51 AM ATTORNEY LAWYER us Gay Escudero MD LAB BLOOD ORDERABLES Final Resul t [facility] ([place]) 1 [facility] Department of Laboratories [place], [place] [id number] * (ABNORMAL) Differential, auto (05/15/2019 4:28 AM ATTORNEY LAWYER) Neutrophil abs 7.6(H) 1.7 - 6.5 K/cumm [facility] ([place]) Imm gran abs 0.1 0.0 - 0.1 K/cumm [facility] ([place]) Lymphocyte abs 1.5 0.8 - 3.3 K/cumm [facility] ([place]) Monocyte abs 1.5(H) 0.2 - 0.8 K/cumm [facility] ([place]) Eosinophil abs 0.2 0.0 - 0.5 K/cumm [facility] ([place]) Basophil abs 0.0 0.0 - 0.1 K/cumm [facility] ([place]) Neutrophil pct 69.8 % [facility] ([place]) Comment: Interpretive [...] was last revised on 2017. Lymphocyte pct 13.7 % [facility] ([place]) Comment: Interpretive Data Percent cell count reference ranges are not reported, since discordance with absolute values may lead to misinterpretation of CBC data. Current Interpretive Data was last revised on 2017. Monocyte pct 13.6 % [facility] ([place]) Comment: Interpretive Data Percent cell count reference ranges are not reported, since discordance with absolute values may lead to misinterpretation of CBC data. Current Interpretive Data was last revised on 2017. Eosinophil pct 2.0 % [facility] ([place]) Comment: Interpretive [...] last revised on 2017. Blood specimen (specimen) 05/15/2019 4:28 AM ATTORNEY LAWYER 05/15/2019 4:51 AM ATTORNEY LAWYER us Gay Escudero MD LAB BLOOD ORDERABLES Final Resul t [facility] ([place]) 1 [facility] Department [place] [address] * Magnesium (05/15/2019 4:28 AM ATTORNEY LAWYER) Magnesium 2.2 1.6 - 2.4 mg/dL [facility] ([place]) Blood specimen (specimen) 05/15/2019 4:28 AM ATTORNEY LAWYER 05/15/2019 4:51 AM ATTORNEY LAWYER Carli Pozo MD LAB BLOOD ORDERABLES Final Re sult Performing Organization Address City/[facility]/ZIP Co de Phone Number [facility] ([place]) [address] [facility] [place] [address] * (ABNORMAL) Phosphorus (05/15/2019 4:28 AM ATTORNEY LAWYER) Phosphorus, pl 1.9(L) 2.3 - 4.5 mg/dL [facility] ([place]) Blood specimen (specimen) 05/15/2019 4:28 AM ATTORNEY LAWYER 05/15/2019 4:51 AM ATTORNEY LAWYER Carli Pozo MD LAB BLOOD ORDERABLES Final Re sult Performing Organization Address [facility] Co de Phone Number [facility] ([place]) [address] [facility] [place] [address] * (ABNORMAL) Comprehensive metabolic panel (05/15/2019 4:28 AM ATTORNEY LAWYER) Sodium 140 135 - 145 mmol/L [facility] ([place]) Potassium, pl 2.7(C) 3.3 - 4.9 mmol/L [facility] ([place]) Comment:Critical Result call ed to and read back by Sejal Gustafson, DATE: 2019-05-15 05:29:32 BY: Brooke Barnard Chloride 104 97 - 110 mmol/L [facility] ([place]) CO2 24 22 - 32 mmol/L [facility] ([place]) Anion gap 12 2 - 15 mmol/L [facility] ([place]) BUN 14 8 - 25 mg/dL [facility] ([place]) Creatinine 0.74 0.60 - 1.10 mg/dL [facility] ([place]) Glucose 134 70 - 199 mg/dL [facility] ([place]) [...] interpretive data was last revised 2017. Calcium 9.4 8.5 - 10.3 mg/dL [facility] ([place]) Bilirubin, total 0.3 0.1 - 1.2 mg/dL [facility] ([place]) Protein, pl 6.2(L) 6.5 - 8.5 g/dL [facility] ([place]) Albumin 3.5 3.5 - 5.0 g/dL [facility] ([place]) Alk phos 76 40 - 130 Units/L [facility] ([place]) ALT 28 7 - 45 Units/L [facility] ([place]) AST 21 10 - 45 Units/L [facility] ([place]) Blood specimen (specimen) 05/15/2019 4:28 AM ATTORNEY LAWYER 05/15/2019 4:51 AM ATTORNEY LAWYER us Gay Escudero MD LAB BLOOD ORDERABLES Final Resul t [facility] ([place] 1 [facility] Department of Laboratories [place], [place] [id number] * (ABNORMAL) CBC with auto differential (05/15/2019 4:28 AM ATTORNEY LAWYER) WBC 11.0(H) 3.8 - 9.9 K/cumm [facility] ([place]) Hgb 12.4 11.9 - 15.5 g/dL [facility] ([place]) Hct 38.6 35.6 - 45.5 % [facility] ([place]) Plt 326 150 - 400 K/cumm [facility] ([place]) MPV 10.5 9.1 - 12.3 fL [facility] ([place]) RBC 4.68 3.90 - 5.20 M/cumm [facility] ([place]) MCV 82.5 81.3 - 96.4 fL [facility] ([place]) MCH 26.5(L) 27.1 - 33.3 pg [facility] ([place]) MCHC 32.1(L) 32.3 - 35.7 g/dL [facility] ([place]) RDW CV 16.6(H) 11.1 - 14.9 % [facility] ([place]) RDW SD 49.2(H) 35.7 - 48.1 fL [facility] ([place]) NRBC abs 0.00 0.00 - 0.01 K/cumm [facility] ([place]) Blood specimen (specimen) 05/15/2019 4:28 AM ATTORNEY LAWYER 05/15/2019 4:51 AM ATTORNEY LAWYER Gay Escudero MD LAB BLOOD ORDERABLES Final Resul t Performing Organization Address City/[facility]/ZIP Co de Phone Number [facility] ([place]) 1 [facility] [place] [address] * (ABNORMAL) POCT glucose (05/15/2019 2:14 AM ATTORNEY LAWYER) Glucose, POC 123(H) 71 - 98 mg/dL [facility] ([place]) Blood specimen (specimen) 05/15/2019 2:14 AM ATTORNEY LAWYER 05/15/2019 2:14 AM ATTORNEY LAWYER Gay Escudero MD LAB POCT ORDERABLES - DEVICE Fin al Result [facility] ([place]) [address] [facility] [employer] [place] [address] * (ABNORMAL) POCT glucose (05/14/2019 11:20 PM ATTORNEY LAWYER) Glucose, POC 161(H) 71 - 98 mg/dL [facility] ([place]) Blood specimen (specimen) 05/14/2019 11:20 PM ATTORNEY LAWYER 05/14/2019 11:20 PM ATTORNEY LAWYER us Gay Escudero MD LAB POCT ORDERABLES - DEVICE Fin al Result [facility] ([place]) [address] [facility] [place] [address] * (ABNORMAL) POCT glucose (05/14/2019 5:12 PM ATTORNEY LAWYER) Glucose, POC 119(H) 71 - 98 mg/dL [facility] ([place]) Blood specimen (specimen) 05/14/2019 5:12 PM ATTORNEY LAWYER 05/14/2019 5:12 PM ATTORNEY LAWYER Gay Escudero MD LAB POCT ORDERABLES - DEVICE Fin al Result Performing Organization Address City/[facility]/ZIP Co de Phone Number [facility] ([place]) [address] [facility] [place] [address] * POCT glucose (05/14/2019 12:11 PM ATTORNEY LAWYER) Glucose, POC 94 71 - 98 mg/dL [facility] ([place]) Blood specimen (specimen) 05/14/2019 12:11 PM ATTORNEY LAWYER 05/14/2019 12:11 PM ATTORNEY LAWYER Gay Escudero MD LAB POCT ORDERABLES - DEVICE Fin al Result Performing Organization Address City/[facility]/ZIP Co de Phone Number [facility] ([place]) [address] [facility] [place] [address] * POCT glucose (05/14/2019 9:10 AM ATTORNEY LAWYER) Glucose, POC 96 71 - 98 mg/dL [facility] Blood specimen (specimen) 05/14/2019 9:10 AM ATTORNEY LAWYER 05/14/2019 9:10 AM ATTORNEY LAWYER Gay Escudero MD LAB POCT ORDERABLES - DEVICE Fin al Result [facility] ([place]) [address] [facility] [place] [address] * eGFR (05/14/2019 3:47 AM ATTORNEY LAWYER) eGFR 83 mL/min/1.7 3 m2 [facility] ([place]) Comment: Interpretive Data Reference Interval Normal ?>/= 90 mL/min/1.73m2 Mildly decreased* ? 60 - 89 mL/min/1.73m2 Mildly to moderately decreased ?45 - 59 mL/min/1.73m2 Moderately to severely decreased ??30 - 44 mL/min/1.73m2 Severely decreased ?15 - 29 mL/min/1.73m2 Kidney Failure ?< 15 ??mL/min/1.73m2 *Relative to young adult level If -Citizen Of [place] multiply value by 1.16. Estimated glomerular filtration rate is determined by [...] 70. Current interpretive data was last reviewed 2015. Blood specimen (specimen) 05/14/2019 3:47 AM ATTORNEY LAWYER 05/14/2019 4:10 AM ATTORNEY LAWYER us Kelly Garcia MD LAB BLOOD ORDERABLE S Final Result [facility] ([place]) 1 [facility] Department [place] [address] * (ABNORMAL) Differential, auto (05/14/2019 3:47 AM ATTORNEY LAWYER) Neutrophil abs 13.2(H) 1.7 - 6.5 K/cumm [facility] ([place]) Imm gran abs 0.1 0.0 - 0.1 K/cumm [facility] ([place]) Lymphocyte abs 1.6 0.8 - 3.3 K/cumm [facility] ([place]) Monocyte abs 2.5(H) 0.2 - 0.8 K/cumm [facility] ([place]) Eosinophil abs 0.1 0.0 - 0.5 K/cumm [facility] ([place]) Basophil abs 0.0 0.0 - 0.1 K/cumm [facility] ([place]) Neutrophil pct 75.2 % [facility] ([place]) Comment: Interpretive Data Percent cell count reference ranges are not reported, since discordance with absolute values may lead to misinterpretation of CBC data. Current Interpretive Data was last revised on 2017. Imm gran pct 0.4 % [facility] ([place]) Comment: Interpretive Data Percent cell count reference ranges are not reported, since discordance with absolute values may lead to misinterpretation of CBC data. Current Interpretive Data was last revised on 2017. Lymphocyte pct 9.2 % [facility] ([place]) Comment: Interpretive Data Percent cell count reference ranges are not reported, since discordance with absolute values may lead to misinterpretation of CBC data. Current Interpretive Data was last revised on 2017. Monocyte pct 14.4 % [facility] ([place]) Comment: Interpretive Data [...] last revised on 2017. Blood specimen (specimen) 05/14/2019 3:47 AM ATTORNEY LAWYER 05/14/2019 4:10 AM ATTORNEY LAWYER us Kelly Garcia MD LAB BLOOD ORDERABLE S Final Result [facility] ([place]) 1 [facility] Department [place] [address] * (ABNORMAL) Comprehensive metabolic panel (05/14/2019 3:47 AM ATTORNEY LAWYER) Sodium 136 135 - 145 mmol/L [facility] ([place]) Potassium, pl 2.5(C) 3.3 - 4.9 mmol/L [facility] ([place]) Comment:Critical Result call ed to and read back by Karan Ruth, DATE: 2019-05-14 05:59:48 BY: Brooke Barnard Chloride 99 97 - 110 mmol/L [facility] ([place]) CO2 25 22 - 32 mmol/L [facility] ([place]) Anion gap 12 2 - 15 mmol/L [facility] ([place]) BUN 17 8 - 25 mg/dL [facility] ([place]) Creatinine 0.68 0.60 - 1.10 mg/dL [facility] ([place]) Glucose 124 70 - 199 mg/dL [facility] ([place]) [...] interpretive data was last revised 2017. Calcium 9.3 8.5 - 10.3 mg/dL [facility] ([place]) Bilirubin, total 0.3 0.1 - 1.2 mg/dL [facility] ([place]) Protein, pl 6.1(L) 6.5 - 8.5 g/dL [facility] ([place]) Albumin 3.3(L) 3.5 - 5.0 g/dL [facility] ([place]) Alk phos 89 40 - 130 Units/L [facility] ([place]) ALT 25 7 - 45 Units/L [facility] ([place]) AST 25 10 - 45 Units/L [facility] ([place]) Blood specimen (specimen) 05/14/2019 3:47 AM ATTORNEY LAWYER 05/14/2019 4:10 AM ATTORNEY LAWYER us Kelly Garcia MD LAB BLOOD ORDERABLE S Final Result [facility] ([place]) 1 [facility] Department [place] [address] * (ABNORMAL) CBC with auto differential (05/14/2019 3:47 AM ATTORNEY LAWYER) WBC 17.6(H) 3.8 - 9.9 K/cumm [facility] ([place]) Hgb 12.5 11.9 - 15.5 g/dL [facility] ([place]) Hct 39.5 35.6 - 45.5 % [facility] ([place]) Plt 342 150 - 400 K/cumm [facility] ([place]) MPV 10.2 9.1 - 12.3 fL [facility] ([place]) RBC 4.80 3.90 - 5.20 M/cumm [facility] ([place]) MCV 82.3 81.3 - 96.4 fL [facility] ([place]) MCH 26.0(L) 27.1 - 33.3 pg [facility] ([place]) MCHC 31.6(L) 32.3 - 35.7 g/dL [facility] ([place]) RDW CV 16.3(H) 11.1 - 14.9 % [facility] ([place]) RDW SD 48.3(H) 35.7 - 48.1 fL [facility] ([place]) NRBC abs 0.00 0.00 - 0.01 K/cumm [facility] ([place]) Blood specimen (specimen) 05/14/2019 3:47 AM ATTORNEY LAWYER 05/14/2019 4:10 AM ATTORNEY LAWYER us Kelly Garcia MD LAB BLOOD ORDERABLE S Final Result [facility] ([place]) [address] [facility] [employer] [place] [address] * (ABNORMAL) POCT glucose (05/14/2019 2:03 AM ATTORNEY LAWYER) Glucose, POC 191(H) 71 - 98 mg/dL [facility] ([place]) Blood specimen (specimen) 05/14/2019 2:03 AM ATTORNEY LAWYER 05/14/2019 2:03 AM ATTORNEY LAWYER Leslie Larsen MD LAB POCT ORDERABLES - DE VICE Final Result Performing Organization Address [facility]/ZIP Co de Phone Number [facility] ([place]) [address] [facility] [employer] [place] [address] * (ABNORMAL) Sepsis Lactate w/ Reflex (05/13/2019 6:51 PM ATTORNEY LAWYER) Sepsis Lactate 2.9(H) 0.7 - 2.0 mmol/L [facility] ([place]) Blood specimen (specimen) 05/13/2019 6:51 PM ATTORNEY LAWYER 05/13/2019 6:53 PM ATTORNEY LAWYER us Kelly Garcia MD LAB BLOOD ORDERABLE S Final Result Performing Organization Address City/[facility]/ZIP Co de Phone Number [facility] ([place]) [address] [facility] [place] [address] * (ABNORMAL) Sepsis Lactate w/ Reflex (05/13/2019 4:37 PM ATTORNEY LAWYER) Sepsis Lactate 2.5(H) 0.7 - 2.0 mmol/L [facility] ([place]) Blood specimen (specimen) 05/13/2019 4:37 PM ATTORNEY LAWYER 05/13/2019 4:39 PM ATTORNEY LAWYER Kelly Garcia MD LAB BLOOD ORDERABLE S Final Result [facility] ([place]) 1 [facility] Department [place] [address] * ECG 12 lead (05/13/2019 4:11 PM ATTORNEY LAWYER) 05/13/2019 4:11 PM ATTORNEY LAWYER Narrative [facility] - 05/14/2019 7:51 AM ATTORNEY LAWYER Vent Rate: 98 bpm RR Interval: 609 msec AL Interval: 133 msec QRS Duration: 122 msec QT Interval: 271 msec QTC Interval: 326 msec P-R-T [place]: 250 - -69 - 73 degrees Probable sinus rhythm with 1st degree AV block LEFT ANTERIOR FASCICULAR BLOCK ??[QRS AXIS <= -45, QR IN I, RS IN II] ABNORMAL ECG Compared to prior EKG, rate is now faster Electronically Signed By: Dr Nelson Corona Kelly Garcia MD ECG ORDERABLES Fin al Result Performing Organization Address [facility] de Phone Number [facility] [employer] [facility] * (ABNORMAL) POCT glucose (05/13/2019 4:03 PM ATTORNEY LAWYER) [facility] Signature Glucose, POC 268(H) 71 - 98 mg/dL [facility] ([place]) Blood specimen (specimen) 05/13/2019 4:03 PM ATTORNEY LAWYER 05/13/2019 4:03 PM ATTORNEY LAWYER Kelly Garcia MD LAB POCT ORDERABLES - DEVICE Final Result Performing Organization Address [facility] de Phone Number [facility] ([place]) 1 [facility] Department [place] [address] * CT Abdomen Pelvis WO Contrast (05/13/2019 2:48 PM ATTORNEY LAWYER) Anatomical Region Laterality Modality Body N/A Computed Tomogra phy 05/13/2019 2:53 PM ATTORNEY LAWYER Impressions 05/13/2019 3:10 PM ATTORNEY LAWYER 1. ??GALVEZ CATHETER IS PRESENT IN THE BLADDER. ??THERE IS EXTENSIVE EDEMA AROUND THE BLADDER CONSISTENT WITH EXTENSIVE INFLAMMATORY CHANGES WITH THICKENING OF THE BLADDER WALL AND MILD DILATATION OF BOTH URETERS. ??SUGGEST FURTHER UROLOGY EVALUATION. ?? 2. ??CHOLECYSTECTOMY, APPENDECTOMY AND HYSTERECTOMY. 3. ??VERY LARGE AMOUNT OF FECAL MATERIAL DIFFUSELY THROUGHOUT THE COLON. 4. ??RIGHT INGUINAL HERNIA CONTAINING A SMALL SEGMENT OF NONDILATED SMALL BOWEL. Electronically signed by: Raghu Gutierrez M.D. Narrative 05/13/2019 3:[address] ABDOMEN PELVIS WO CONTRAST HISTORY: Abdominal pain. ??Pelvic pain. ??Breast cancer. ??Hysterectomy. Appendectomy. ??Cholecystectomy. ??Obstructed Galvez catheter. TECHNIQUE: ??Serial axial images of the abdomen and pelvis obtained without contrast.. COMPARISON: 06/14/2016 FINDINGS: Evaluation of the solid abdominal organs is limited by the lack of intravenous contrast. Lung bases are clear. There is moderate atherosclerotic plaque in the wall of a normal caliber abdominal aorta. There are a few granulomatous calcifications in the liver otherwise the liver appears normal. Gallbladder has been removed with clips in the right upper quadrant. There are multiple granulomatous calcifications in the spleen that otherwise appears normal. There is no renal or ureter stone identified. ??There is no dilatation of either intrarenal collecting system but there is mild dilatation of both ureters. ??There is a Galvez catheter in the urinary bladder. There is a large amount of air in the urinary bladder. ??There is extensive edema in the perivesical fat indicative of a significant amount of inflammation around the urinary bladder. ??There is no significant fluid seen within the bladder itself. ??The bladder wall appears moderately thickened diffusely. Adrenal glands are normal. Pancreas is normal. There is a very large amount of fecal material diffusely throughout the colon. ??No dilated small or large bowel loops or localized inflammatory bowel changes are identified. ??There is a inguinal hernia on the right containing a small segment of nondilated small bowel. ??Appendix by report has been removed. ??The uterus is absent. No adenopathy or definitive free air is identified in the abdomen or pelvis. There are no acute osseous abnormalities. 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 Procedure Note Raghu Gutierrez MD - 05/13/2019 CT ABDOMEN PELVIS WO CONTRAST HISTORY: Abdominal pain. Pelvic pain. Breast cancer. Hysterectomy. Appendectomy. Cholecystectomy. Obstructed Galvez catheter. TECHNIQUE: Serial axial images of the abdomen and pelvis obtained without contrast.. COMPARISON: 06/14/2016 FINDINGS: Evaluation of the solid abdominal organs is limited by the lack of intravenous contrast. Lung bases are clear. There is moderate atherosclerotic plaque in the wall of a normal caliber abdominal aorta. There are a few granulomatous calcifications in the liver otherwise the liver appears normal. Gallbladder has been removed with clips in the right upper quadrant. There are multiple granulomatous calcifications in the spleen that otherwise appears normal. There is no renal or ureter stone identified. There is no dilatation of either intrarenal collecting system but there is mild dilatation of both ureters. There is a Galvez catheter in the urinary bladder. There is a large amount of air in the urinary bladder. There is extensive edema in the perivesical fat indicative of a significant amount of inflammation around the urinary bladder. There is no significant fluid seen within the bladder itself. The bladder wall appears moderately thickened diffusely. Adrenal glands are normal. Pancreas is normal. There is a very large amount of fecal material diffusely throughout the colon. No dilated small or large bowel loops or localized inflammatory bowel changes are identified. There is a inguinal hernia on the right containing a small segment of nondilated small bowel. Appendix by report has been removed. The uterus is absent. No adenopathy or definitive free air is identified in the abdomen or pelvis. There are no acute osseous abnormalities. 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 IMPRESSION: 1. GALVEZ CATHETER IS PRESENT IN THE BLADDER. THERE IS EXTENSIVE EDEMA AROUND THE BLADDER CONSISTENT WITH EXTENSIVE INFLAMMATORY CHANGES WITH THICKENING OF THE BLADDER WALL AND MILD DILATATION OF BOTH URETERS. SUGGEST FURTHER UROLOGY EVALUATION. 2. CHOLECYSTECTOMY, APPENDECTOMY AND HYSTERECTOMY. 3. VERY LARGE AMOUNT OF FECAL MATERIAL DIFFUSELY THROUGHOUT THE COLON. 4. RIGHT INGUINAL HERNIA CONTAINING A SMALL SEGMENT OF NONDILATED SMALL BOWEL. Electronically signed by: Raghu Gutierrez M.D. Kelly Garcia MD IMG CT PROCEDURES F inal Result * (ABNORMAL) Urine culture Urine (05/13/2019 2:13 PM ATTORNEY LAWYER) Report Final Report: Greater than or equal to 100,000 colonies/mL of Proteus mirabilis Plus growth of clinically insignificant bacterial donte. (.) [facility] ([place]) Comment:Testing performed by : [facility], [address] [place] [place] [address] Organism PROTEUS MIRABILIS CE [facility]AE [facility] ([place]) Organism PLUS GROWTH OF CLINICALLY INSIGNIFICANT DONTE. [facility] ([place]) Urine 05/13/2019 2:13 PM ATTORNEY LAWYER 05/13/2019 5:41 PM ATTORNEY LAWYER Narrative [facility] ([place]) - 05/15/2019 12:49 PM ATTORNEY LAWYER Urine culture reflexed based upon urinalysis results. Testing performed by [facility] ([phone]) Organism Antibiotic Method Susceptibility Proteus mirabilis Ampicillin INTERPRETATION Susceptible Proteus mirabilis Cefazolin INTERPRETATION Susceptible Proteus mirabilis Nitrofurantoin INTERPRETATION Resistant Proteus mirabilis Gentamicin INTERPRETATION Susceptible Proteus mirabilis Trimethoprim with Sulfamethoxazole I NTERPRETATION Susceptible Proteus mirabilis Meropenem INTERPRETATION Susceptible Proteus mirabilis Cefepime INTERPRETATION Susceptible Proteus mirabilis Ciprofloxacin INTERPRETATION Susceptible Proteus mirabilis Ceftazidime INTERPRETATION Susceptible Proteus mirabilis Ceftriaxone INTERPRETATION Susceptible Proteus mirabilis Piperacillin/Tazobactam INTERPRETATI ON Susceptible Proteus mirabilis Cephalexin INTERPRETATION Susceptible Proteus mirabilis Cefuroxime-axetil INTERPRETATION Susceptible Proteus mirabilis Cefdinir INTERPRETATION Susceptible us Kelly Garcia MD LAB MICROBIOLOGY - GENERAL ORDERABLES Final Result MADDI HOFF (ARABELLA) 1 [facility] Department [place] [address] * (ABNORMAL) Urinalysis, microscopic only (05/13/2019 2:13 PM ATTORNEY LAWYER) WBC, ur >50(A) 0 - 5 /HPF MADDI HOFF (ARABELLA) RBC, ur >50(A) 0 - 2 /HPF MADDI [facility]OFF (ARABELLA) Epithelial cells, squamous, ur 1-5 0 - 5 /HPF MADDI [facility]OFF (ARBAELLA) Bacteria, ur Negative MADDI [facility]OFF (ARABELLA) Hyaline casts, ur 6-10 0 - 10 /LPF [facility] (AR[place]) Culture Reflex Comment Reflex to urine culture will be performed. [facility] ([place]) Urine 05/13/2019 2:13 PM ATTORNEY LAWYER 05/13/2019 2:19 PM ATTORNEY LAWYER us Kelly Garcia MD LAB URINE ORDERABLE S Final Result [facility] (ARABELLA) 1 [facility] Department [place] [address] * (ABNORMAL) Urinalysis reflex to microscopic and culture Urine (05/13/2019 2:13 PM ATTORNEY LAWYER) Color, ur Yellow Yellow [facility] (ARABELLA) Clarity, ur Turbid(A) Clear [facility] (ARABELLA) Specific gravity, ur 1.011 1.010 - 1.025 [facility] ([place]) pH, urine 7.0 [facility] ([place]) Protein, ur ql 2+(A) Negative [facility] ([place]) Glucose, ur ql 2+(A) Negative [facility] (AR[place]) Ketones, ur Negative Negative [facility] (ARAEBLLA) Bilirubin, ur Negative Negative [facility] (ARAB[place]LLA) Blood, ur 3+(A) Negative [facility] (AR[place]) Urobilinogen, ur 0.2 mg/dL [facility] ([place]) Nitrite, ur Negative Negative [facility] (ARABELLA) Leukocyte esterase, ur 3+(A) Negative [facility] ([place]A) UA reflex comment Reflex to microscopic UA will be performed. [facility] ([place]) Urine 05/13/2019 2:13 PM ATTORNEY LAWYER 05/13/2019 2:19 PM ATTORNEY LAWYER Narrative [facility] (ARABELLA) - 05/13/2019 2:53 PM ATTORNEY LAWYER ?? Urine pH is affected by diet, medications, systemic acid-base disturbances, and renal tubular function. ??pH may affect urinary stone formation. ??For example, urine pH below 6.0 may help reduce the tendency for calcium phosphate stones and pH greater than 6.0 may reduce the tendency for uric acid stone formation. Source: [facility] [employer]. Last revised 05-29-2017 us Kelly Garcia MD LAB MICROBIOLOGY - GENERAL ORDERABLES Final Result MADDI HOFF (ARABELLA) 1 [facility] [place] [address] * eGFR (05/13/2019 2:02 PM ATTORNEY LAWYER) eGFR 47 mL/min/1.7 3 m2 MADDI HOFF (ARABELLA) Comment: Interpretive Data Reference Interval Normal ?>/= 90 mL/min/1.73m2 Mildly decreased* ? 60 - 89 mL/min/1.73m2 Mildly to moderately decreased ?45 - 59 mL/min/1.73m2 Moderately to severely decreased ??30 - 44 mL/min/1.73m2 Severely decreased ?15 - 29 mL/min/1.73m2 Kidney Failure ?< 15 ??mL/min/1.73m2 *Relative to young adult level If -Citizen Of [place] multiply value by 1.16. Estimated glomerular filtration rate is determined by [...] 70. Current interpretive data was last reviewed 2015. Blood specimen (specimen) 05/13/2019 2:02 PM ATTORNEY LAWYER 05/13/2019 2:06 PM ATTORNEY LAWYER us Kelly Garcia MD LAB BLOOD ORDERABLE S Final Result Performing Organization Address City/[facility]/ZIP Co de Phone Number MADDI HOFF (ARABELLA) 1 [facility] Department [place] [address] * (ABNORMAL) Differential, auto (05/13/2019 2:02 PM ATTORNEY LAWYER) Neutrophil abs 12.7(H) 1.7 - 6.5 K/cumm [facility] (POSEY) Imm gran abs 0.1 0.0 - 0.1 K/cumm [facility] ([place]) Lymphocyte abs 0.9 0.8 - 3.3 K/cumm [facility] ([place]) Monocyte abs 1.4(H) 0.2 - 0.8 K/cumm [facility] ([place]) Eosinophil abs 0.1 0.0 - 0.5 K/cumm [facility] ([place]) Basophil abs 0.1 0.0 - 0.1 K/cumm [facility] ([place]) Neutrophil pct 83.6 % [facility] ([place]) Comment: Interpretive Data Percent cell count reference ranges are not reported, since discordance with absolute values may lead to misinterpretation of CBC data. Current Interpretive Data was last revised on 2017. Imm gran pct 0.4 % [facility] ([place]) Comment: Interpretive Data Percent cell count reference ranges are not reported, since discordance with absolute values may lead to misinterpretation of CBC data. Current Interpretive Data was last revised on 2017. Lymphocyte pct 5.7 % [facility] ([place]) Comment: Interpretive Data Percent cell count reference ranges are not reported, since discordance with absolute values may lead to misinterpretation of CBC data. Current Interpretive Data was last revised on 2017. Monocyte pct 9.4 % [facility] ([place]) Comment: Interpretive Data Percent cell count reference ranges are not reported, since discordance with absolute values may lead to misinterpretation of CBC data. Current Interpretive Data was last revised on 2017. Eosinophil pct 0.5 % [facility] ([place]) Comment: Interpretive Data Percent cell count reference ranges are not reported, since discordance with absolute values may lead to misinterpretation of CBC data. Current Interpretive Data was last revised on 2017. Basophil pct 0.4 % [facility] ([place]) Comment: Interpretive Data Percent cell count reference ranges are not reported, since discordance with absolute values may lead to misinterpretation of CBC data. Current Interpretive Data was last revised on 2017. Blood specimen (specimen) 05/13/2019 2:02 PM ATTORNEY LAWYER 05/13/2019 2:06 PM ATTORNEY LAWYER us Kelly Garcia MD LAB BLOOD ORDERABLE S Final Result MADDI HOFF (ARABELLA) 1 [facility] Department [place] [address] * Blood culture Blood Peripheral (05/13/2019 2:02 PM ATTORNEY LAWYER) Report Final Report: No growth MADDI HOFF (ARABELLA) Comment:Testing performed by : [facility], [address] [facility], [place]., [address] Blood specimen (specimen) (Peripheral) 05/13/2019 2:02 PM ATTORNEY LAWYER 05/13/2019 5:34 PM ATTORNEY LAWYER Narrative MADDI HOFF (ARABELLA) - 05/19/2019 7:01 AM ATTORNEY LAWYER From a different site than #1. Draw Blood cultures before administration of Antibiotics 1. Blood cultures are incubated for 5 days on a continuously monitored blood culture system. The first report of a negative culture is issued within 24 hours of receipt of the specimen in the laboratory. 2. Positive culture results are reported as soon as they are detected. 3. The most important factor for detection of microbes in the setting of bloodstream infection is the volume of blood submitted for culture. Failure to collect an optimal blood volume can result in false negative blood cultures. For pediatric patients, the recommended blood volume to collect is 1 mL of blood per year of patient age (up to 20 mL) per blood culture set. For adult patients, 20 mL of blood, divided equally between aerobic and anaerobic blood culture bottles, is recommended for each blood culture set. 4. For blood cultures with Gram-positive cocci, a rapid molecular test for organism identification may be performed using the [employer] Gram-Positive Blood Culture Assay. This assay detects microbial DNA in positive blood culture broth via hybridization of target DNA to capture oligonucleotides on a microarray. This assay has been cleared by the [place] Food and Drug Administration and its performance characteristics have been verified by the [facility] Microbiology Laboratory. 5. For questions about this culture, contact the Microbiology Laboratory at [phone]. Interpretive data was last revised on 2018. Kelly Garcia MD LAB MICROBIOLOGY - GENERAL ORDERABLES Final Result MADDI GOLDMAN) 1 [facility] Department [place] [address] * Blood culture Blood Peripheral (05/13/2019 2:02 PM ATTORNEY LAWYER) Report Final Report: No growth MADDI HOFF (ARABELLA) Comment:Testing performed by : [facility], 1 [place] [place] [address] Blood specimen (specimen) (Peripheral) 05/13/2019 2:02 PM ATTORNEY LAWYER 05/13/2019 5:34 PM ATTORNEY LAWYER Narrative MADDI HOFF (ARABELLA) - 05/19/2019 7:01 AM ATTORNEY LAWYER Draw Blood cultures before administration of Antibiotics 1. Blood cultures are incubated for 5 days on a continuously monitored blood culture system. The first report of a negative culture is issued within 24 hours of receipt of the specimen in the laboratory. 2. Positive culture results are reported as soon as they are detected. 3. The most important factor for detection of microbes in the setting of bloodstream infection is the volume of blood submitted for culture. Failure to collect an optimal blood volume can result in false negative blood cultures. For pediatric patients, the recommended blood volume to collect is 1 mL of blood per year of patient age (up to 20 mL) per blood culture set. For adult patients, 20 mL of blood, divided equally between aerobic and anaerobic blood culture bottles, is recommended for each blood culture set. 4. For blood cultures with Gram-positive cocci, a rapid molecular test for organism identification may be performed using the [employer] Gram-Positive Blood Culture Assay. This assay detects microbial DNA in positive blood culture broth via hybridization of target DNA to capture oligonucleotides on a microarray. This assay has been cleared by the [place] Food and Drug Administration and its performance characteristics have been verified by the [facility] Microbiology Laboratory. 5. For questions about this culture, contact the Microbiology Laboratory at [phone]. Interpretive data was last revised on 2018. Kelly Garcia MD LAB MICROBIOLOGY - GENERAL ORDERABLES Final Result MADDI HOFF (ARABELLA) 1 [facility] Department [place] [address] * (ABNORMAL) Sepsis Lactate w/ Reflex (05/13/2019 2:02 PM ATTORNEY LAWYER) Pathologist [facility] Sepsis Lactate 3.0(H) 0.7 - 2.0 mmol/L [facility] (ARABELLA) Blood specimen (specimen) 05/13/2019 2:02 PM ATTORNEY LAWYER 05/13/2019 2:06 PM ATTORNEY LAWYER Kelly Garcia MD LAB BLOOD ORDERABLE S Final Result Performing Organization Address City/[facility]/ZIP Co de Phone Number MADDI HOFF (ARABELLA) 1 [facility] Department [place] [address] * (ABNORMAL) Comprehensive metabolic panel (05/13/2019 2:02 PM ATTORNEY LAWYER) Pathologist [facility] Sodium 135 135 - 145 mmol/L [facility] ([place]) Potassium, pl 3.4 3.3 - 4.9 mmol/L [facility] (ARABELLA) Chloride 95(L) 97 - 110 mmol/L [facility] (ARAB[place]LL[place]) CO2 26 22 - 32 mmol/L [facility] ([place]) Anion gap 14 2 - 15 mmol/L [facility] ([place]) BUN 24 8 - 25 mg/dL [facility] (ARAE[place]LL[place]) Creatinine 1.11(H) 0.60 - 1.10 mg/dL [facility] ([place]AB[place]) Glucose 294(H) 70 - 199 mg/dL [facility] (ARABELLA) [...] 1.2 mg/dL [facility] ([place]) Protein, pl 7.7 6.5 - 8.5 g/dL [facility] ([place]) Albumin 4.3 3.5 - 5.0 g/dL [facility] ([place]) Alk phos 112 40 - 130 Units/L [facility] ([place]) ALT 23 7 - 45 Units/L [facility] ([place]) AST 21 10 - 45 Units/L [facility] ([place]) Blood specimen (specimen) 05/13/2019 2:02 PM ATTORNEY LAWYER 05/13/2019 2:06 PM ATTORNEY LAWYER us Kelly Garcia MD LAB BLOOD ORDERABLE S Final Result [facility] (ARAB[place]LLA) 1 [facility] Department [place] [address] * (ABNORMAL) CBC with auto differential (05/13/2019 2:02 PM ATTORNEY LAWYER) WBC 15.2(H) 3.8 - 9.9 K/cumm [facility] ([place]) Hgb 14.6 11.9 - 15.5 g/dL [facility] ([place]) Hct 46.4(H) 35.6 - 45.5 % [facility] ([place]) Plt 393 150 - 400 K/cumm [facility] ([place]) MPV 10.1 9.1 - 12.3 fL [facility] ([place]) RBC 5.52(H) 3.90 - 5.20 M/cumm [facility] ([place]) MCV 84.1 81.3 - 96.4 fL [facility] ([place]) MCH 26.4(L) 27.1 - 33.3 pg [facility] (ARABELLA) MCHC 31.5(L) 32.3 - 35.7 g/dL [facility] (ARABELLA) RDW CV 16.5(H) 11.1 - 14.9 % [facility] (ARABELLA) RDW SD 49.3(H) 35.7 - 48.1 fL [facility] (ARABELLA) NRBC abs 0.00 0.00 - 0.01 K/cumm [facility] (ARABELLA) Blood specimen (specimen) 05/13/2019 2:02 PM ATTORNEY LAWYER 05/13/2019 2:06 PM ATTORNEY LAWYER us Kelly Garcia MD LAB BLOOD ORDERABLE S Final Result MADDI HOFF (ARABELLA) 1 [facility] Department [place] [address] documented in this encounter Visit Diagnoses Diagnosis Cystitis- Primary Unspecified cystitis Emphysematous cystitis Other specified types of cystitis Leukocytosis, unspecified type Multiple falls Chronic diastolic congestive heart failure (CMS/HCC) (HCC) DM (diabetes mellitus) (HCC) Type II or unspecified type diabetes mellitus without mention of complication, not stated as uncontrolled Weakness generalized Other malaise and fatigue PAF (paroxysmal atrial fibrillation) (CMS/HCC) (HCC) Atrial fibrillation Lymphedema of both lower extremities CATY on CPAP Chronic diastolic congestive heart failure (CMS/HCC) (HCC) Constipation Unspecified constipation Recurrent inguinal hernia Inguinal hernia without mention of obstruction or gangrene, recurrent unilateral or unspecified documented in this encounter Administered Medications Inactive Administered Medications - up to 3 most recent administrations Medication Order MAR Action Action Date Dose Rate Site acetaminophen (TYLENOL) tablet 650 mg 650 mg, oral, Every 6 hours PRN, 1st line for pain, Starting on Magali 05/13/19 at 2103 Given 05/16/2019 5:01 AM ATTORNEY LAWYER 650 mg Given 05/15/2019 7:37 PM ATTORNEY LAWYER 650 mg amitriptyline (ELAVIL) tablet 50 mg 50 mg, oral, Nightly, First dose on Fri05/14/19 at 2100, Indications: Neuropathic PainIndications:Neuropathic Pain Given 05/15/2019 8:22 PM ATTORNEY LAWYER 50 mg Given 05/14/2019 9:09 PM ATTORNEY LAWYER 50 mg anastrozole (ARIMIDEX) tablet 1 mg 1 mg, oral, Daily, First dose on Fri05/14/19 at 2030, Indications: prevention of breast cancer in high risk womenIndications:prevention of breast cancer in high risk women Given 05/16/2019 8:47 AM ATTORNEY LAWYER 1 mg Given 05/15/2019 9:26 AM ATTORNEY LAWYER 1 mg Given 05/14/2019 9:10 PM ATTORNEY LAWYER 1 mg aspirin enteric coated tablet 81 mg 81 mg, oral, Daily, First dose on Fri05/14/19 at 1715, Do not crush, chew, cut, dissolve, open or otherwise manipulate tablet/capsule. Given 05/16/2019 8:47 AM ATTORNEY LAWYER 81 mg Given 05/15/2019 9:26 AM ATTORNEY LAWYER 81 mg Given 05/14/2019 9:10 PM ATTORNEY LAWYER 81 mg bisacodyl EC (DULCOLAX EC) tablet 10 mg 10 mg, oral, Daily PRN, constipation, If no results 24 hours after milk of magnesia, Starting on Fri05/13/19 at 2103, Do not crush, chew, cut, dissolve, open or otherwise manipulate tablet/capsule. cefTRIAXone (ROCEPHIN) 2,000 mg/20 mL in sterile water (premix) 2,000 mg 2,000 mg, intravenous, at 240 mL/hr, Administer over 5 Minutes, Once, On Fri05/13/19 at 1521, For 1 dose, Indications: Urinary Tract/Genitourinary InfectionIndications:Urinary Tract/Genitourinary Infection New Bag 05/13/2019 3:39 PM ATTORNEY LAWYER 2,000 mg 2 40 mL/hr clopidogrel (PLAVIX) tablet 75 mg 75 mg, oral, Daily, First dose on Fri05/14/19 at 1715 Given 05/16/2019 8:47 AM ATTORNEY LAWYER 75 mg Given 05/15/2019 9:26 AM ATTORNEY LAWYER 75 mg Given 05/14/2019 9:09 PM ATTORNEY LAWYER 75 mg dextrose (D10W) 10% bolus 250 mL 250 mL, intravenous, at 1,000 mL/hr, Administer over 15 Minutes, Every 15 min PRN, blood glucose less than 70 mg/dL and UNABLE to swallow/take PO glucose/juice., Starting on Fri05/14/19 at 1636, After treatment for hypoglycemia, recheck BG followed [...] glucose less than 70 mg/dL, Starting on Fri05/14/19 at 1636, If patient is alert and able to [...] episode of hypoglycemia., Indications: hypoglycemic disorderIndications:hypoglycemic disorder empagliflozin (JARDIANCE) tablet 10 mg 10 mg, oral, Daily, First dose on Fri05/14/19 at 1715, Indications: type 2 diabetes mellitusIndications:type 2 diabetes mellitus Given 05/16/2019 8:47 AM ATTORNEY LAWYER 10 mg Given 05/15/2019 9:26 AM ATTORNEY LAWYER 10 mg Given 05/14/2019 9:10 PM ATTORNEY LAWYER 10 mg flecainide (TAMBOCOR) tablet 50 mg 50 mg, oral, 2 times daily, First dose on Fri05/14/19 at 2100 Given 05/16/2019 8:47 AM ATTORNEY LAWYER 50 mg Given 05/15/2019 8:22 PM ATTORNEY LAWYER 50 mg Given 05/15/2019 9:26 AM ATTORNEY LAWYER 50 mg furosemide (LASIX) tablet 40 mg 40 mg, oral, Daily, First dose on Fri05/14/19 at 1715 Given 05/16/2019 8:47 AM ATTORNEY LAWYER 40 mg Given 05/14/2019 9:09 PM ATTORNEY LAWYER 40 mg insulin lispro (HumaLOG) pen injection 1-3 Units 1-3 Units, subcutaneous, Nightly, First dose on Fri05/15/19 at 2100, Blood Sugar Mid Dose PM - PO patients 175 or less No insulin 176 - 200 1 unit 201 - 250 2 units 251 - 299 3 units Greater than 299 Call MD for hyperglycemia management instructions Do NOT hold for NPO status., Indications: Diabetes MellitusIndications:Diabetes Mellitus Given 05/15/2019 8:23 PM ATTORNEY LAWYER 1 Units Left Upper Arm insulin lispro (HumaLOG) pen injection 1-5 Units 1-5 Units, subcutaneous, 3 times daily with meals, First dose on Fri05/15/19 at 1845, Blood Sugar Mid Dose meal time - PO patients 139 or less No insulin 140 - 175 1 unit 176 - 200 2 unit 201 - 250 3 units 251 - 299 5 units Greater than 299 Call MD for hyperglycemia management instructions Do NOT hold for NPO status., Indications: Diabetes MellitusIndications:Diabetes Mellitus lactulose (CEPHULAC) packet 20 g 20 g, oral, 2 times daily, First dose on Fri05/14/19 at 2100, For 2 doses, Dissolve in 4 ounces of water. Given 05/15/2019 9:26 AM ATTORNEY LAWYER 20 g Given 05/14/2019 9:10 PM ATTORNEY LAWYER 20 g latanoprost (XALATAN) 0.005 % ophthalmic solution 1 drop 1 drop, each eye, Nightly, First dose on Fri05/14/19 at 2100 Given 05/15/2019 8:22 PM ATTORNEY LAWYER 1 drop Given 05/14/2019 9:08 PM ATTORNEY LAWYER 1 drop levothyroxine (SYNTHROID) tablet 25 mcg 25 mcg, oral, Daily (early AM), First dose on Fri05/14/19 at 1700, Administer on an empty stomach, preferably 30 minutes before breakfast. Take 4 hours apart from antacids, iron and calcium products. Given 05/16/2019 5:01 AM ATTORNEY LAWYER 25 mcg Given 05/15/2019 6:01 AM ATTORNEY LAWYER 25 mcg Given 05/14/2019 9:10 PM ATTORNEY LAWYER 25 mcg magnesium hydroxide (MILK OF MAGNESIA) 80 mg/mL (33.3 mg/mL as elemental magnesium) oral suspension 30 mL 30 mL, oral, Daily PRN, constipation, Starting on Magali 05/13/19 at 2103 mineral oil (FLEET MINERAL OIL) enema 1 enema 1 enema, rectal, Daily PRN, constipation, if no results 24 hours after bisacodyl, Starting on Fri05/13/19 at 2103, Indications: constipationIndications:constipat ion ondansetron (ZOFRAN) injection 4 mg 4 mg, intravenous, Administer over 2 Minutes, Every 4 hours PRN, nausea, vomiting, Starting on Fri05/13/19 at 2103 piperacillin-tazobactam (ZOSYN) 3.375 g in sodium chloride 0.9% 50 mL IVPB 3.375 g, intravenous, at 130 mL/hr, Administer over 30 Minutes, Every 6 hours scheduled, First dose on Fri05/14/19 at 1400, Indications: Urinary Tract/Genitourinary InfectionIndications:Urinary Tract/Genitourinary Infection New Bag 05/16/2019 12:25 PM ATTORNEY LAWYER 3.375 g 130 mL/hr New Bag 05/16/2019 5:01 AM ATTORNEY LAWYER 3.375 g 130 mL/hr New Bag 05/16/2019 12:20 AM ATTORNEY LAWYER 3.375 g 130 mL/hr polyethylene glycol (MIRALAX) packet 17 g 17 g, oral, Daily, First dose on Fri05/14/19 at 1715 Given 05/16/2019 8:47 AM ATTORNEY LAWYER 17 g Given 05/15/2019 9:26 AM ATTORNEY LAWYER 17 g potassium chloride 40 mEq in sodium chloride 0.9% 500 mL IVPB 40 mEq, intravenous, at 130 mL/hr, Administer over 4 Hours, Once, On Fri05/14/19 at 0700, For 1 dose, Indications: hypokalemiaIndications:hypokalemia [place] 05/14/2019 6:45 AM ATTORNEY LAWYER 40 mEq 130 mL/hr potassium chloride 40 mEq in sodium chloride 0.9% 500 mL IVPB 40 mEq, intravenous, at 130 mL/hr, Administer over 4 Hours, Once, On Fri05/14/19 at 1100, For 1 dose, Indications: hypokalemiaIndications:hypokalemia [place] 05/14/2019 2:03 PM ATTORNEY LAWYER 40 mEq 130 mL/hr potassium chloride ER (KLOR-CON) extended release tablet 30 mEq 30 mEq, oral, Every 4 hours, First dose on Fri05/15/19 at 0700, For 2 doses, Total dose = 60 mEq Do not crush, chew, cut, dissolve, open or otherwise manipulate tablet/capsule. Given 05/15/2019 6:00 AM ATTORNEY LAWYER 30 mEq potassium chloride ER (KLOR-CON) extended release tablet 40 mEq 40 mEq, oral, 2 times daily, First dose on Fri05/15/19 at 1000, For 2 doses, Do not crush, chew, cut, dissolve, open or otherwise manipulate tablet/capsule. Given 05/15/2019 8:22 PM ATTORNEY LAWYER 40 mEq Given 05/15/2019 9:29 AM ATTORNEY LAWYER 40 mEq potassium, sodium phosphates (PHOS-NAK) 280-160-250 mg packet 2 packet 2 packet, oral, 3 times daily before meals, First dose on [facility] 05/15/19 at 0730, For 1 day, Each packet contains 250 mg elemental phosphorus. Given 05/15/2019 3:50 PM ATTORNEY LAWYER 2 packets Given 05/15/2019 11:49 AM ATTORNEY LAWYER 2 packets Given 05/15/2019 8:20 AM ATTORNEY LAWYER 2 packets sodium chloride 0.9% bolus 1,000 mL 1,000 mL, intravenous, at 1,000 mL/hr, Administer over 1 Hours, Once, On Magali 05/13/19 at 1334, For 1 dose New Bag 05/13/2019 2:07 PM ATTORNEY LAWYER 1,000 mL 1000 mL/hr sodium chloride 0.9% bolus 1,000 mL 1,000 mL, intravenous, at 1,000 mL/hr, Administer over 1 Hours, Once, On Magali 05/13/19 at 1606, For 1 dose New Bag 05/13/2019 4:08 PM ATTORNEY LAWYER 1,000 mL 1000 mL/hr sodium chloride 0.9% flush 0.5-20 mL 0.5-20 mL, intra-catheter, Every 8 hours, First dose on Magali 05/13/19 at 2145, Flush volume based on line type and size. Given 05/13/2019 11:37 PM ATTORNEY LAWYER 10 mL sodium chloride 0.9% flush 0.5-20 mL 0.5-20 mL, intra-catheter, As needed, line care, Starting on Magali 05/13/19 at 2104, Flush volume based on line type and size. Flush before and after each use. Given 05/14/2019 11:21 PM ATTORNEY LAWYER 10 mL sodium chloride 0.9% flush 0.5-20 mL 0.5-20 mL, intra-catheter, Every 8 hours, First dose (after last modification) on Fri05/14/19 at 0600, Flush volume based on line type and size. Given 05/16/2019 5:05 AM ATTORNEY LAWYER 10 mL Given 05/15/2019 6:00 AM ATTORNEY LAWYER 10 mL Given 05/14/2019 6:47 AM ATTORNEY LAWYER 10 mL sodium phosphate - potassium phosphate (K-PHOS NEUTRAL) tablet 250 mg 250 mg, oral, 3 times daily with meals, First dose on Fri05/16/19 at 0800, For 3 doses, K-Phos neutral 250 mg orally tid X 3 doses today per electrolyte replacement protocol for phosphorous =2.2 on 05/16/19 Given 05/16/2019 12:25 PM ATTORNEY LAWYER 2 50 mg Given 05/16/2019 8:47 AM ATTORNEY LAWYER 250 mg spironolactone (ALDACTONE) tablet 25 mg 25 mg, oral, Daily, First dose on Fri05/14/19 at 1715 Given 05/16/2019 8:47 AM ATTORNEY LAWYER 25 mg Given 05/15/2019 9:29 AM ATTORNEY LAWYER 25 mg Given 05/14/2019 9:09 PM ATTORNEY LAWYER 25 mg verapamil SR (CALAN SR) extended release tablet 120 mg 120 mg, oral, Daily, First dose on Fri05/14/19 at 1715, Do not crush, chew, cut, dissolve, open or otherwise manipulate tablet/capsule. Given 05/16/2019 8:47 AM ATTORNEY LAWYER 120 mg Given 05/15/2019 9:26 AM ATTORNEY LAWYER 120 mg Given 05/14/2019 9:09 PM ATTORNEY LAWYER 120 mg documented in this encounter Discontinued Medications Medication Sig Discontinue Reason Start Date End Da te amoxicillin-clavulanat e (AUGMENTIN) 875-125 mg per tablet Therapy completed 04/19/2019 05/13/2019 fluconazole (DIFLUCAN) 150 mg tablet TAKE 1 TABLET BY MOUTH ONCE A WEEK FOR 4 WEEKS. Therapy completed 04/12/2019 05/13/2019 peg 400-propylene glycol (SYSTANE ULTRA) 0.4-0.3 % drops PRN Therapy completed 07/01/2016 05/13/2019 psyllium, aspartame, SF (METAMUCIL SF) 3.4 gram packetIndications:cons tipation Take 1 packet by mouth 3 (three) times a day. 1 tsp. TID Therapy completed 05/13/2019 nystatin powder APPLY TO AFFECTED AREA TWICE A DAY Therapy completed 04/12/2019 05/13/2019 spironolactone (ALDACTONE) 25 mg tablet Take 1 tablet (25 mg total) by mouth daily Stop Taking at Discharge 04/20/2019 05/16/2019 documented as of this encounter Historical Medications * This list may reflect changes made after this encounter. polyethylene glycol (MIRALAX) 17 gram packet Take 17 g by mouth daily 12/21/2020 cranberry extract-vitamin C 250-60 mg capsule Take 2 tablets by mouth daily 07/31/2020 calcium carbonate/vitamin D3 (CALTRATE WITH VITAMIN D3 ORAL) Take 1 tablet by mouth 2 (two) times a day 07/31/2020 added in this encounter Active and Recently Administered Medications Times are shown in ATTORNEY [employer]. Scheduled Medication Order 05/14/2019 05/15/2019 05/16/2019 amitriptyline (ELAVIL) tablet 50 mg 50 mg, oral, Nightly, First dose on Fri05/14/19 at 2100, Indications: Neuropathic Pain 2108 (Given - Provider: Maryjane Hewitt RN) 2021 (Given - Provider: Rosa Maria Queen RN) anastrozole (ARIMIDEX) tablet 1 mg 1 mg, oral, Daily, First dose on Fri05/14/19 at 2030, Indications: prevention of breast cancer in high risk women 2109 (Given - Provider: Maryjane Hewitt RN) 09 (Given - Provider: Joe Ferraro RN) 0847 (Given - Provider: Madhavi Aguirre, DES) aspirin enteric coated tablet 81 mg 81 mg, oral, Daily, First dose on Fri05/14/19 at 1715, Do not crush, chew, cut, dissolve, open or otherwise manipulate tablet/capsule. 2109 (Given - Provider: Maryjane Hewitt RN) 0926 (Given - Provider: Joe Ferraro RN) 0847 (Given - Provider: Madhavi Aguirre RN) bromfenac 0.07 % drops 1 drop 1 drop, each eye, 2 times daily, First dose on Fri05/14/19 at 2100, Please use patients home supply of medication, pharmacy does not carry and we have no automatic substitution. The patient supplied medication of Cibiema has been verified by pharmacy., Drug Name: bromfenac 0.07% drops, Form: bottle, Length of Therapy: Indefinite, How soon needed? (normally 72 hrs needed to procure): 0-24 hrs, Reason for Non-Formulary: patient requested to take own medication, Indications: Bidirectional Cardiovascular Shunt 2256 (Not Given - Provider: Maryjane Hewitt RN - Reason: Medication not available) 09 (Not Given - Provider: Joe Ferraro RN - Reason: Medication not available - Comment: home med)2021 (Not Given - Provider: Rosa Maria Queen RN - Reason: Medication not available) 0845 (Not Given - Provider: Madhavi Aguirre, DES - Reason: Other - Comment: not here) clopidogrel (PLAVIX) tablet 75 mg 75 mg, oral, Daily, First dose on Fri05/14/19 at 1715 2109 (Given - Provider: Maryjane Hewitt RN) 0926 (Given - Provider: Joe Ferraro RN) 0847 (Given - Provider: Madhavi Aguirre RN) empagliflozin (JARDIANCE) tablet 10 mg 10 mg, oral, Daily, First dose on Fri05/14/19 at 1715, Indications: type 2 diabetes mellitus 2109 (Given - Provider: Maryjane Hewitt RN) 0926 (Given - Provider: Joe Ferraro RN) 0847 (Given - Provider: Madhavi Aguirre RN) flecainide (TAMBOCOR) tablet 50 mg 50 mg, oral, 2 times daily, First dose on Fri05/14/19 at 2100 2110 (Given - Provider: Maryjane Hewitt, DES) 0926 (Given - Provider: Joe Ferraro, EDS)2021 (Given - Provider: Rosa Maria Queen, DES) 0847 (Given - Provider: Madhavi Aguirre, DES) furosemide (LASIX) tablet 40 mg 40 mg, oral, Daily, First dose on Fri05/14/19 at 1715 2109 (Given - Provider: Maryjane Hewitt, DES) 0920 (Not Given - Provider: Joe Ferraro RN - Reason: Other - Comment: nurse decision pt hypokalemic) 0847 (Given - Provider: Madhavi Aguirre RN) insulin lispro (HumaLOG) pen injection 1-3 Units 1-3 Units, subcutaneous, Nightly, First dose on Fri05/15/19 at 2100, Blood Sugar Mid Dose PM - PO patients 175 or less No insulin 176 - 200 1 unit 201 - 250 2 units 251 - 299 3 units Greater than 299 Call MD for hyperglycemia management instructions Do NOT hold for NPO status., Indications: Diabetes Mellitus 2022 (Given - Provider: Rosa Maria Queen RN) insulin lispro (HumaLOG) pen injection 1-5 Units 1-5 Units, subcutaneous, 3 times daily with meals, First dose on Fri05/15/19 at 1845, Blood Sugar Mid Dose meal time - PO patients 139 or less No insulin 140 - 175 1 unit 176 - 200 2 unit 201 - 250 3 units 251 - 299 5 units Greater than 299 Call MD for hyperglycemia management instructions Do NOT hold for NPO status., Indications: Diabetes Mellitus 1802 (Not Given - Provider: Rosa Maria Queen RN - Reason: Order parameters not met) 0800 (Not Given - Provider: Madhavi Aguirre RN - Reason: Order parameters not met - Comment: fs 107)1224 (Not Given - Provider: Madhavi Aguirre RN - Reason: Order parameters not met - Comment: fs 115) lactulose (CEPHULAC) packet 20 g (COMPLETED) 20 g, oral, 2 times daily, First dose on Fri05/14/19 at 2100, For 2 doses, Dissolve in 4 ounces of water. 2109 (Given - Provider: Maryjane Hewitt RN) 09 (Given - Provider: Joe Ferraro RN) latanoprost (XALATAN) 0.005 % ophthalmic solution 1 drop 1 drop, each eye, Nightly, First dose on Fri05/14/19 at 2100 2108 (Given - Provider: Maryjane Hewitt RN) 2021 (Given - Provider: Rosa Maria Queen RN) levothyroxine (SYNTHROID) tablet 25 mcg 25 mcg, oral, Daily (early AM), First dose on Fri05/14/19 at 1700, Administer on an empty stomach, preferably 30 minutes before breakfast. Take 4 hours apart from antacids, iron and calcium products. 2109 (Given - Provider: Maryjane Hewitt RN) 06 (Given - Provider: Maryjane Hewitt, DES) 0501 (Given - Provider: Rosa Maria Queen RN) piperacillin-tazobactam (ZOSYN) 3.375 g in sodium chloride 0.9% 50 mL IVPB 3.375 g, intravenous, at 130 mL/hr, Administer over 30 Minutes, Every 6 hours scheduled, First dose on Fri05/14/19 at 1400, Indications: Urinary Tract/Genitourinary Infection 1519 (New Bag - Provider: Joe Ferraro, RN)1718 (Not Given - Provider: Joe Ferraro, RN - Reason: Other - Comment: recently given)2321 (New Bag - Provider: Maryjane Hewitt, DES) 0600 (New Bag - Provider: Maryjane Hewitt, DES)1149 (New Bag - Provider: Joe Ferraro, DES)1702 (New Bag - Provider: Rosa Maria Queen, RN) 0020 (New Bag - Provider: Rosa Maria Queen, DES - Comment: Administered at correct time. Scan did not take)0501 (New Bag - Provider: Rosa Maria Queen, RN)1225 (New Bag - Provider: Madhavi Aguirre, DES) polyethylene glycol (MIRALAX) packet 17 g 17 g, oral, Daily, First dose on Fri05/14/19 at 1715 0422 (Not Given - Provider: Maryjane Hewitt, DES - Reason: Patient/family refused)0926 (Given - Provider: Joe Ferraro RN) 0847 (Given - Provider: Madhavi Aguirre, DES) potassium chloride 40 mEq in sodium chloride 0.9% 500 mL IVPB (COMPLETED) 40 mEq, intravenous, at 130 mL/hr, Administer over 4 Hours, Once, On Fri05/14/19 at 0700, For 1 dose, Indications: hypokalemia 0645 (New Bag - Provider: Brooke Casillas RN) potassium chloride 40 mEq in sodium chloride 0.9% 500 mL IVPB (COMPLETED) 40 mEq, intravenous, at 130 mL/hr, Administer over 4 Hours, Once, On Fri05/14/19 at 1100, For 1 dose, Indications: hypokalemia 1403 (New Bag - Provider: Joe Ferraro, DES) potassium chloride ER (KLOR-CON) extended release tablet 30 mEq (CANCELED) 30 mEq, oral, Every 4 hours, First dose on Fri05/15/19 at 0700, For 2 doses, Total dose = 60 mEq Do not crush, chew, cut, dissolve, open or otherwise manipulate tablet/capsule. 0600 (Given - Provider: Maryjane Hewitt, DES) potassium chloride ER (KLOR-CON) extended release tablet 40 mEq (COMPLETED) 40 mEq, oral, 2 times daily, First dose on Fri05/15/19 at 1000, For 2 doses, Do not crush, chew, cut, dissolve, open or otherwise manipulate tablet/capsule. 0929 (Given - Provider: Joe Ferraro RN)2021 (Given - Provider: Rosa Maria Queen, DES) potassium, sodium phosphates (PHOS-NAK) 280-160-250 mg packet 2 packet (COMPLETED) 2 packet, oral, 3 times daily before meals, First dose on Fri05/15/19 at 0730, For 1 day, Each packet contains 250 mg elemental phosphorus. 0820 (Given - Provider: Joe Ferraro RN)1149 (Given - Provider: Joe Ferraro RN)1550 (Given - Provider: Rosa Maria Queen, DES) sodium chloride 0.9% flush 0.5-20 mL 0.5-20 mL, intra-catheter, Every 8 hours, First dose (after last modification) on Fri05/14/19 at 0600, Flush volume based on line type and size. 0647 (Given - Provider: Brooke Casillas RN)1403 (Not Given - Provider: Joe Ferraro RN - Reason: IV Infusing)2257 (Not Given - Provider: Maryjane Hewitt RN - Reason: Other) 0600 (Given - Provider: Maryjane Hewitt, DES)1632 (Not Given - Provider: Rosa Maria Queen, DES - Reason: Order Discontinued)210 (Not Given - Provider: Rosa Maria Queen, DES - Reason: Other - Comment: Recently given with ax) 0505 (Given - Provider: Rosa Maria Queen, DES) sodium phosphate - potassium phosphate (K-PHOS NEUTRAL) tablet 250 mg 250 mg, oral, 3 times daily with meals, First dose on Fri05/16/19 at 0800, For 3 doses, K-Phos neutral 250 mg orally tid X 3 doses today per electrolyte replacement protocol for phosphorous =2.2 on 05/16/19 0847 (Given - Provider: Madhavi Aguirre RN)1225 (Given - Provider: Madhavi Aguirre RN) spironolactone (ALDACTONE) tablet 25 mg 25 mg, oral, Daily, First dose on Fri05/14/19 at 1715 2109 (Given - Provider: Maryjane Hewitt RN) 0929 (Given - Provider: Joe Ferraro RN) 0847 (Given - Provider: Madhavi Aguirre, DES) verapamil SR (CALAN SR) extended release tablet 120 mg 120 mg, oral, Daily, First dose on Fri05/14/19 at 1715, Do not crush, chew, cut, dissolve, open or otherwise manipulate tablet/capsule. 210 (Given - Provider: Maryjane Hewitt RN) 0926 (Given - Provider: Joe Ferraro RN) 0847 (Given - Provider: Madhavi Aguirre RN) PRN Medication Order 05/14/2019 05/15/2019 05/16/2019 acetaminophen (TYLENOL) tablet 650 mg 650 mg, oral, Every 6 hours PRN, 1st line for pain, Starting on Magali 05/13/19 at 2103 0644 (Not Given - Provider: Brooke Casillas RN - Reason: NPO) 1937 (Given - Provider: Rosa Maria Queen RN) 0501 (Given - Provider: Rosa Maria Queen RN) bisacodyl EC (DULCOLAX EC) tablet 10 mg 10 mg, oral, Daily PRN, constipation, If no results 24 hours after milk of magnesia, Starting on Magali 05/13/19 at 2103, Do not crush, chew, cut, dissolve, open or otherwise manipulate tablet/capsule. dextrose (D10W) 10% bolus 250 mL(Linked Group 1) 250 mL, intravenous, at 1,000 mL/hr, Administer over 15 Minutes, Every 15 min PRN, blood glucose less than 70 mg/dL and UNABLE to swallow/take PO glucose/juice., Starting on Fri05/14/19 at 1636, After treatment for hypoglycemia, recheck BG followed by treatment every 15 minutes until the BG is greater than 100 mg/dL. Then check BG 1 hour post treatment. If BG is less than 100 mg/dL, repeat Q15 minute BG checks and treatment. Call MD for each episode of hypoglycemia., Indications: hypoglycemic disorder dextrose gel in packet 15 g(Linked Group 1) 15 g, oral, Every 15 min PRN, low blood sugar, blood glucose less than 70 mg/dL, Starting on Fri05/14/19 at 1636, If patient is alert and able to [...] each episode of hypoglycemia., Indications: hypoglycemic disorder glucagon injection 1 mg 1 mg, intramuscular, Administer over 1 Minutes, Every 30 min PRN, low blood sugar, blood glucose less than 70 mg/dL AND no IV access AND unable to take PO glucose/jiuce., Starting on Fri05/14/19 at 1636, After Glucagon is administered, position patient on [...] MD for each episode of hypoglycemia., Indications: Hypoglycemia magnesium hydroxide (MILK OF MAGNESIA) 80 mg/mL (33.3 mg/mL as elemental magnesium) oral suspension 30 mL 30 mL, oral, Daily PRN, constipation, Starting on Fri05/13/19 at 2103 menthol-zinc oxide 0.44-20.6 % ointment topical, 3 times daily PRN, irritation, Starting on Fri05/14/19 at 1955, Please use patients home supply of medication, pharmacy does not carry and we have no automatic substitution. The patient supplied medication of Calmoseptine needs to be tubed to pharmacy for verification. , Apply to affected area: other mineral oil (FLEET MINERAL OIL) enema 1 enema 1 enema, rectal, Daily PRN, constipation, if no results 24 hours after bisacodyl, Starting on Fri05/13/19 at 2103, Indications: constipation ondansetron (ZOFRAN) injection 4 mg 4 mg, intravenous, Administer over 2 Minutes, Every 4 hours PRN, nausea, vomiting, Starting on Fri05/13/19 at 2103 polyvinyl alcohol (LIQUIFILM TEARS) 1.4 % ophthalmic solution 1 drop 1 drop, each eye, 3 times daily PRN, dry eyes, Starting on Fri05/14/19 at 1634 sodium chloride 0.9% flush 0.5-20 mL 0.5-20 mL, intra-catheter, As needed, line care, Starting on Fri05/13/19 at 2104, Flush volume based on line type and size. Flush before and after each use. 2321 (Given - Provider: Maryjane Hewitt RN) Linked Groups Order Group 1: dextrose gel in packet 15 gJump to med 15 g, oral, Every 15 min PRN, low blood sugar, blood glucose less than 70 mg/dL, Starting on Fri05/14/19 at 1636, If patient is alert and able to [...] UNABLE to swallow/take PO glucose/juice., Starting on Fri05/14/19 at 1636, After treatment for hypoglycemia, recheck BG followed [...] Count Last Ordered Date First Ordered Date insulin lispro (HumaLOG) pen injection 1-5 Units 1 05/15/2019 bromfenac 0.07 % drops 1 drop 1 05/14/2019 dextrose (D10W) 10% bolus 250 mL 1 05/14/20 19 dextrose gel in packet 15 g 1 05/14/2019 glucagon injection 1 mg 1 05/14/2019 insulin lispro (HumaLOG) pen injection 1-3 Units 1 05/14/2019 menthol-zinc oxide 0.44-20.6 % ointment 1 1 07/15/2018 polyvinyl alcohol (LIQUIFILM TEARS) 1.4 % ophthalmic solution 1 drop 1 05/14/2019 bisacodyl EC (DULCOLAX EC) tablet 10 mg 1 1 07/14/2018 HYDROmorphone (DILAUDID) injection 0.2 mg 1 05/13/2019 magnesium hydroxide (MILK OF MAGNESIA) 80 mg/mL (33.3 mg/mL as elemental magnesium) oral suspension 30 mL 1 05/13/2019 mineral oil (FLEET MINERAL O IL) enema 1 enema 1 05/13/2019 ondansetron (ZOFRAN) injection 4 mg 2 05/13 Lab Orders Without Results Count Last Ordered D ate First Ordered Date POCT GLUCOSE DEVICE 13 05/16/2019 05/14/20 19 Diet Count Last Ordered Date First Orde red Date ADULT DISCHARGE DIET 2 05/16/2019 Nursing Count Last Ordered Date First Orde red Date FOLLOW UP WITH PROVIDER 3 05/16/2019 BLADDER SCAN 2 05/13/2019 CARDIO RESPIRATORY MONITORING 1 05/13/2019 CONTINUOUS PULSE OXIMETRY 1 05/13/2019 WEIGH PATIENT 1 05/13/2019 Consult Count Last Ordered Date First Orde red Date IP CONSULT TO GENERAL SURGERY 1 05/14/2019 IP CONSULT TO NUTRITION SERVICES 1 05/13/20 19 IP CONSULT TO UROLOGY 1 05/13/2019 CORE MEASURES Count Last Ordered Date First Ord ered Date REASON FOR NO VTE PROPHYLAXI S - HOSPITAL ADMISSION - MEDICATIONS 1 05/13/2019 ADT Patient Update Count Last Ordered Date Firs t Ordered Date ED IP DECISION TO ADMIT 1 05/13/2019 documented in this encounter Care Teams 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
--- OUTSIDE RECORDS SUMMARY | 2024-05-26 13:01 | XMS_ITS | Encounter Summary ---
Author Organization [facility] Healthcare Address [address] [place] [address] Care Team Providers Care Cat Skinner Name Role Phone Theresa Camargo MD Primary Care Provider [phone] Laz Valencia MD Unavailable [phone] Migue Herman MD Unavailable [phone] Sonny Palmer MD Unavailable [phone] Encounter Details Date Type Department Care Team (Late st Contact Info) Description 08/02/2020 Telephone [facility] [address] [place] [id number] Ludy Souza RT Social History Tobacco Use Types Packs/Day Years Used Date Smoking Tobacco: Never Smokeless Tobacco: Never Alcohol Use Standard Drinks/Week Comments No 0 (1 standard drink = 0.6 oz pur e alcohol) PHQ-2 Answer Date Recorded PHQ-2 Score 0 03/06/2019 Comments No Sex and Gender Information Value Date Recorded Sex Assigned at Not on file 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 documented in this encounter Plan of Treatment Not on file documented as of this encounter Visit Diagnoses Not on filedocumented in this encounter Care Teams Cat Skinner Relationship Specialty Start Date End Date Theresa Camargo MD PCP - General 09/29/18 12/05/22 Laz Valencia MD Consulting Physician Cardiology 03/22/19 12/05/22 Migue Herman MD Consulting Physician Urology 05/16/19 Sonny Palmer MD Surgeon General Surgery 05/16/19 documented as of this encounter
--- OUTSIDE RECORDS SUMMARY | 2024-05-26 13:01 | XMS_ITS | Encounter Summary ---
Author Organization [facility] Healthcare Address [address] [place] [address] Care Team Providers Care Assembly Machine Tender Name Role Phone Theresa Camargo MD Primary Care Provider Laz Valencia MD Unavailable [phone] Reason for Visit * Reason Comments Fall Weakness - Generalized Encounter Details Date Type Department Care Team (Late st Contact Info) Description 03/19/2019 9:19 AM CDT - 03/22/2019 6:22 PM [facility] Hospital Encounter [facility] [address] [place] [address] Jj Jewell MD [address] [facility] [address] [address] Gay Escudero MD [facility] [facility] [place] [address] Doreen Quintero MD [address] [facility] [address] Multiple falls (Primary Dx); Minor head injury, initial encounter; Hypokalemia Discharge Disposition: Discharge to SNF Social History Tobacco Use Types Packs/Day Years Used Date Smoking Tobacco: Never Smokeless Tobacco: Never Alcohol Use Standard Drinks/Week Comments No 0 (1 standard drink = 0.6 oz pur e alcohol) PHQ-2 Answer Date Recorded PHQ-2 Score 0 03/06/2019 Comments No Sex and Gender Information Value Date Recorded Sex Assigned at Not on file Legal Sex Female 6:56 PM LOAN SERVICE OFFICER Gender Identity Not on file Sexual Orientation Not on file documented as of this encounter Last Filed Vital Signs Vital Sign Reading Time Taken Comments Blood Pressure 131/56 03/22/2019 3:15 PM LOAN SERVICE OFFICER Pulse 58 03/22/2019 3:15 PM LOAN SERVICE OFFICER Temperature 36.9 ??C (98.4 ??F) 03/22/2019 3:15 PM CS T Respiratory Rate 21 03/22/2019 3:15 PM LOAN SERVICE OFFICER Oxygen Saturation 92% 03/22/2019 3:15 PM LOAN SERVICE OFFICER Inhaled Oxygen Concentration - - Weight 83 kg (182 lb 15.7 oz) 03/19/2019 9:29 AM CDT Height 165.1 cm (5' 5 ) 03/19/2019 9:33 AM CDT Body Mass Index 30.45 03/19/2019 9:29 AM CDT documented in this encounter Discharge Diagnoses Diagnosis 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 Obstructive sleep apnea (adult) (pediatric) - OBSTRUCTIVE SLEEP APNEA (ADULT) (PEDIATRIC) Essential (primary) hypertension - ESSENTIAL (PRIMARY) HYPERTENSION Unspecified essential hypertension Atherosclerotic heart disease of [place] coronary artery without angina pectoris - ATHEROSCLEROTIC HEART DISEASE OF [place] CORONARY ARTERY WITHOUT ANGINA PECTORIS Paroxysmal atrial fibrillation ([facility]) - PAROXYSMAL ATRIAL FIBRILLATION Atrial fibrillation Venous insufficiency (chronic) (peripheral) - VENOUS INSUFFICIENCY (CHRONIC) (PERIPHERAL) Unspecified venous (peripheral) insufficiency Lymphedema, not elsewhere classified - LYMPHEDEMA, NOT ELSEWHERE CLASSIFIED Unspecified asthma, uncomplicated - UNSPECIFIED ASTHMA, UNCOMPLICATED Hypothyroidism, unspecified - HYPOTHYROIDISM, UNSPECIFIED Overactive bladder - OVERACTIVE BLADDER Hypertonicity of bladder Unspecified injury of head, initial encounter - UNSPECIFIED INJURY OF HEAD, INITIAL ENCOUNTER Unspecified fall, initial encounter - UNSPECIFIED FALL, INITIAL ENCOUNTER Unspecified place or not applicable - UNSPECIFIED PLACE OR NOT APPLICABLE Unspecified glaucoma - UNSPECIFIED GLAUCOMA Gastro-esophageal reflux disease without esophagitis - GASTRO-ESOPHAGEAL REFLUX DISEASE WITHOUT ESOPHAGITIS Irritable bowel syndrome without diarrhea - IRRITABLE BOWEL SYNDROME WITHOUT DIARRHEA Unspecified osteoarthritis, unspecified site - UNSPECIFIED OSTEOARTHRITIS, UNSPECIFIED SITE Type 2 diabetes mellitus without complications (CMS/HCC) (HCC) - TYPE 2 DIABETES MELLITUS WITHOUT COMPLICATIONS Hyperlipidemia, unspecified - HYPERLIPIDEMIA, UNSPECIFIED Hypercalcemia - HYPERCALCEMIA Hypokalemia - HYPOKALEMIA Hypopotassemia Personal history of transient ischemic attack (TIA), and cerebral infarction without residual deficits - PERSONAL HISTORY OF TRANSIENT ISCHEMIC ATTACK (TIA), AND CEREBRAL INFARCTION WITHOUT RESIDUAL DEFICI Hormone replacement therapy - HORMONE REPLACEMENT THERAPY Acquired absence of other specified parts of digestive tract - ACQUIRED ABSENCE OF OTHER SPECIFIED PARTS OF DIGESTIVE TRACT Acquired absence of both cervix and uterus - ACQUIRED ABSENCE OF BOTH CERVIX AND UTERUS Acquired absence of ovaries, bilateral - ACQUIRED ABSENCE OF OVARIES, BILATERAL History of falling - HISTORY OF FALLING Personal history of pneumonia (recurrent) - PERSONAL HISTORY OF PNEUMONIA (RECURRENT) care home (current) use of oral hypoglycemic drugs - RETIREMENT (CURRENT) USE OF ORAL HYPOGLYCEMIC DRUGS Other clinical team manager (current) drug therapy - OTHER LINE ASSIGNER (CURRENT) DRUG THERAPY Personal history of malignant neoplasm of breast - PERSONAL HISTORY OF MALIGNANT NEOPLASM OF BREAST Allergy status to other drugs, medicaments and biological substances status - ALLERGY STATUS TO OTHER DRUGS, MEDICAMENTS AND BIOLOGICAL SUBSTANCES STATUS Family history of ischemic heart disease and other diseases of the circulatory system - FAMILY HISTORY OF ISCHEMIC HEART DISEASE AND OTHER DISEASES OF THE CIRCULATORY SYSTEM Family history of malignant neoplasm of breast - FAMILY HISTORY OF MALIGNANT NEOPLASM OF BREAST documented in this encounter Discharge Summaries * Doreen Quintero MD - 03/22/2019 4:48 PM CST Inpatient Discharge Summary BRIEF OVERVIEW Admitting Provider: Gay Escudero MD Discharge Provider: Doreen Quintero MD Primary Care Physician at Discharge: Theresa Camargo MD [phone] Admission Date: 03/19/2019 Discharge Date: 03/22/2019 Discharge Diagnosis 1. Fall 2. Hypokalemia 3. History of paroxysmal atrial fibrillation 4. CATY on CPAP 5. Hypercalcemia 6. Diabetes type 2 7. 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 Chronic bilateral lower extremity lymphedema Discharge Disposition Patient is being discharged to [facility] facility Active Issues Requiring Follow-up 1. Potassium supplements are increased from 40 mEq daily to 40 mEq twice a day. Patient needs to repeat CMP on 03/25/2019 and follow up with her PCP regarding results and further management. 2. Patient needs to repeat CBC, CMP on 03/25/2019 and follow up with his PCP regarding results and further management 3. Patient needs fall precaution and aggressive physical therapy 4. Patient needs to follow up with his PCP within 1 week 5. Patient needs to follow up with her neurologist and poker manager within 1 week 6. Patient needs close blood sugar monitoring as recommended by her PCP 7. Patient needs close blood pressure monitoring as recommended by her PCP Outpatient Follow-Up 1. Primary care physician 2. Neurology at [facility] 3. Cardiology Test Results Pending at Discharge None DETAILS OF HOSPITAL STAY Presenting Problem/History of Present Illness 78-year-old female with past medical history of paroxysmal atrial fibrillation, familial spastic paraplegia, IBS, glaucoma, asthma, CAD, hypertension, CATY on CPAP, bilateral lower extremity chronic lymphedema, bilateral lower extremity chronic venous stasis dermatitis, overactive bladder, hypothyroidism came in for chief complaint of fall, generalized weakness and lightheadedness. Patient admitted for further care. Patient denies any loss of consciousness Hospital Course 1. Fall Suspect due to chronic bilateral lower extremity weakness due to familial spastic paraplegia. Patient denies any loss of consciousness. Patient states her bilateral lower extremity weakness was progressively getting worse for past few months prior to presentation. Patient denies any pain anywhere. With physical therapy patient is feeling better. Patient states she feels her bilateral lower extremities are more stronger. No acute cervical spine fracture or dislocation on CT C-spine. No acute intracranial abnormality onCT head. Patient evaluated by Physical therapy-recommends usp facility placement Patient evaluated by Neurology-recommends physical therapy. 2. Hypokalemia Repleted. Potassium supplements are increased from 40 mEq daily to 40 mEq twice a day. Patient needs to repeat CMP on 03/25/2019 and follow up with her PCP regarding results andfurther management 3. History of paroxysmal atrial fibrillation Currently patient is in sinus rhythm. Patient is maintained on Plavix, verapamil and flecainide Patient follows up with Patient is not on anticoagulation likely due to risk of fall 4. CATY on CPAP Continue with nocturnal CPAP 5. Hypercalcemia Likely due to calcium and vitamin-D supplements Calcium and vitamin-D supplements are discontinued Today serum calcium 9.1. PTH 41. Vitamin-D level 38. 6. Diabetes type 2 Blood sugars are controlled. Patient will continue with her home medications. Patient will continueto monitor her blood sugar as recommended by her PCP. 7. 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 Chronic bilateral lower extremity lymphedema Continue with diuresis. Leg elevation Operative Procedures Performed NOne Consults: 1. Neurology Procedures: None Radiology: Ct Head Wo Contrast ?? Result Date: 03/19/2019 Narrative: PROCEDURE: CT HEAD WO CONTRAST HISTORY: Head pain. Recent fall. COMPARISON: Brain CT 09/29/2018 TECHNIQUE: Serial axial images of the brain were obtained without contrast. FINDINGS: There is no acute intracranial hemorrhage, midline shift or mass effect. There is mild diffuse cortical atrophy. Moderate small vessel White matter ischemic disease is again noted. There is prominent carotid and vertebral arterial calcification bilaterally. There is no acute skull fracture. There is minimal ethmoid sinus mucosal thickening otherwise the paranasal sinuses are clear. 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 The mastoids are clear bilaterally. ?? Impression: 1. NO ACUTE INTRACRANIAL ABNORMALITY. 2. MODERATE SMALL VESSEL WHITE MATTER ISCHEMIC DISEASE. Electronically signed by: Raghu Gutierrez M.D. ?? Ct Cervical Spine Wo Contrast ?? Result Date: 03/19/2019 Narrative: CT CERVICAL SPINE WO CONTRAST HISTORY: Cervical pain status post fall TECHNIQUE: Serial axial images of the cervical spine with reconstructed coronal and sagittal views obtained. COMPARISON: Cervical spine CT 09/29/2018 FINDINGS: There is no acute cervical spine fracture or dislocation. There is mild C5-C6 and moderate C6-C7 disc space narrowing. There is a grade 1 anterior spondylolisthesis of C3 relative to C4 and a grade 1 posterior spondylolisthesis of C5 relative to C6 again noted. There are degenerative endplate spurs at multiple levels. There is also multilevel facet and uncovertebral joint osteoarthritis. Overall no significant central canal stenosis is identified. Is mild neural foraminal stenosis on the left at C4-C5, mild left and moderate right neural foraminal stenosis at C5-C6 and mild left neural foraminal stenosis at C6-C7. ?? Impression: NO ACUTE CERVICAL SPINE FRACTURE OR DISLOCATION WITH MULTILEVEL OSTEOARTHRITIS OF THE CERVICAL SPINE. Electronically signed by: Raghu Gutierrez M.D. ?? Xr Chest 1 Vw Portable ?? Result Date: 03/06/2019 Narrative: XR CHEST 1 VIEW HISTORY: lightheaded. COMPARISON: Portable chest on 04/07/2018 VIEWS: Erect AP portable chest at 0152 hours FINDINGS: Heart size is normal. Pulmonary vascularity is normal . 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 No infiltrate, mass or pleural effusion is seen. Bony structures are unremarkable. 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 ?? Impression: 1. No active disease. Electronically signed by: Jeromy Poole Jr., M.D. ?? Today's Lab: Recent Results (from the past 24 hour(s)) POCT glucose Collection Time: 03/21/19 9:28 PM Result Value Ref Range Glucose, POC 230 (H) 71 - 98 mg/dL POCT glucose Collection Time: 03/22/19 2:33 AM Result Value Ref Range Glucose, POC 149 (H) 71 - 98 mg/dL Renal function panel Collection Time: 03/22/19 5:44 AM Result Value Ref Range Sodium 139 135 - 145 mmol/L Potassium, pl 3.1 (L) 3.3 - 4.9 mmol/L Chloride 100 97 - 110 mmol/L CO2 27 22 - 32 mmol/L Anion gap 12 2 - 15 mmol/L BUN 13 8 - 25 mg/dL Creatinine 0.57 (L) 0.60 - 1.10 mg/dL Glucose 159 70 - 199 mg/dL Calcium 9.1 8.5 - 10.3 mg/dL Phosphorus, pl 2.1 (L) 2.3 - 4.5 mg/dL Albumin 3.0 (L) 3.5 - 5.0 g/dL eGFR Collection Time: 03/22/19 5:44 AM Result Value Ref Range GFR 88 mL/min/1.73 m2 POCT glucose Collection Time: 03/22/19 8:05 AM Result Value Ref Range Glucose, POC 147 (H) 71 - 98 mg/dL POCT glucose Collection Time: 03/22/19 11:36 AM Result Value Ref Range Glucose, POC 182 (H) 71 - 98 mg/dL POCT glucose Collection Time: 03/22/19 5:00 PM Result Value Ref Range Glucose, POC 186 (H) 71 - 98 mg/dL Discharge Medications Your medication list CHANGE how you take these medications Instructions Last Dose Given Next Dose Due artificial tears 0.3 % gel Commonly known as: SYSTANE What changed: Another medication with the same name was removed. Continue taking this medication, and follow the directions you see here. potassium chloride ER 10 mEq CR tablet Commonly known as: KLOR-CON What changed: when to take this Take 4 tablet/capsule (40 mEq total) by mouth 2 (two) times a day SYSTANE ULTRA 0.4-0.3 % ophthalmic solution Generic drug: peg 400-propylene glycol What changed: ?? how much to take ?? how to take this ?? when to take this ?? reasons to take this PRN CONTINUE taking these medications Instructions Last Dose Given Next Dose Due amitriptyline 50 mg tablet Commonly known as: ELAVIL anastrozole 1 mg tablet Commonly known as: ARIMIDEX ASPIRIN LOW DOSE 81 mg enteric coated tablet Generic drug: aspirin take 1 tablet by oral route every day bromfenac 0.07 % drops CALMOSEPTINE 0.44-20.6 % ointment Generic drug: menthol-zinc oxide PRN CRESTOR 10 mg tablet Generic drug: rosuvastatin TAKE 1 TABLET BY MOUTH 1 TIME PER DAY AT BEDTIME empagliflozin 10 mg tablet Commonly known as: JARDIANCE flecainide 50 mg tablet Commonly known as: TAMBOCOR take 1 tablet by oral route every 12 hours furosemide 40 mg tablet Commonly known as: LASIX Take 1.5 tablets (60 mg total) by mouth daily JANUVIA 100 mg tablet Generic drug: SITagliptin take 1 tablet by oral route every day latanoprost 0.005 % ophthalmic solution Commonly known as: XALATAN instill 1 drop by ophthalmic route every day into affected eye(s) in the evening levothyroxine 25 mcg tablet Commonly known as: SYNTHROID metOLazone 2.5 mg tablet Commonly known as: ZAROXOLYN Take 1 tablet (2.5 mg total) by mouth 2 (two) times a week mirabegron ER 25 mg tablet extended release 24 hr Commonly known as: MYRBETRIQ NexIUM 40 mg capsule Generic drug: esomeprazole DR TAKE 1 CAPSULE DAILY ONCE DAILY tablet Generic drug: multivitamin take 1 tablet by oral route every day with food PLAVIX 75 mg tablet Generic drug: clopidogrel take 1 tablet by oral route every day PROAIR HFA 90 mcg/actuation inhaler Generic drug: albuterol HFA inhale 2 puff by inhalation route every 4 - 6 hours as needed psyllium (aspartame) SF 3.4 gram packet Commonly known as: METAMUCIL SF verapamil ER 240 mg 24 hr capsule Commonly known as: VERELAN take 1 capsule by oral route every day vitamin B-12 1,000 mcg tablet Generic drug: cyanocobalamin take 1 tablet by oral route every day Where to Get Your Medications These medications were sent to [facility]/pharmacy #[id number] - [place], [place] - [address] [place] [address] Hours: 24-hours ?? furosemide 40 mg tablet Information about where to get these medications is not yet available Ask your nurse or doctor about these medications ?? potassium chloride ER 10 mEq CR tablet Discharge Instruction Activity Instructions Discharge activity: Resume normal activity Ambulate as tolerated per Physical therapy recommendation. Fall precaution. Patient needs wheeled walker for ambulation Diet Instructions Adult Discharge Diet Diet Type: Other (specify) Explanatory Comment: Carbohydrate consistent/heart healthy diet Other Instructions Call provider for: If you have chest pain, shortness of breath, abdominal pain, nausea, vomiting, diarrhea, black stool, dark stool, fresh blood in stool, headache, confusion, high-grade fever, fall, loss of consciousness, blood in urine, weakness, paresthesia immediately go to nearest emergency room Call provider for: Temperature -Temperature greater than 101 degrees F Call provider for: difficulty breathing or chest pain Call provider for: extreme fatigue Call provider for: hives Call provider for: persistent dizziness or light-headedness Call provider for: persistent nausea or vomiting Call provider for: severe uncontrolled pain Call provider for: headache, visual disturbances, weakness and speech changes Special Instructions 1. Potassium supplement is increased from 40 mEq daily to 40 mEq twice a day. Patient needs to repeat CMP on 03/25/2019 and follow up with her PCP regarding results and further management 2. Patient needs to repeat CBC, CMP on 03/25/2019 and follow up with her PCP regarding results and further management 3. Patient needs fall precaution and aggressive physical therapy 4. Patient needs to follow up with her PCP within 1 week 5. Patient needs to follow up with her neurologist and poker manager within 1 week 6. Patient needs close blood sugar monitoring as recommended by her PCP 7. Patient needs close blood pressure monitoring. 8. Do not take calcium and vitamin-D supplements because you had hypercalcemia Physical Exam at Discharge Discharge Condition: Stable Pulse: 58 Resp: 21 BP: 131/56 Temp: 36.9 ??C (98.4 ??F) Weight: 83 kg (182 lb 15.7 oz) Patient is lying in the bed. Patient is afebrile. Patient is hemodynamically stable Patient denies any chest pain, shortness of breath, abdominal pain, nausea, vomiting, diarrhea, black stool, dark stool, fresh blood in stool, headache Patient is on room air saturating 92% Physical Exam: Patient seen and examined General-Not in acute distress Head: ??Atraumatic, normocephalic Neck: Supple CV: S1, S2, RRR Respiratory: ??Clear to auscultation bilaterally GI: ??Abdomen soft, nontender, obese, bowel sounds positive Neuro: AAO times 3.??Patient has chronic bilateral lower extremity weakness from familial spastic paraplegia. ??Patient has chronic bilateral lower extremity redness for past few months per patient MSK:?Bilateral lower extremity edema 1+. ??No calf tenderness Psych: Normal mood and affect Time spent for discharge: 45 minutes I Doreen Quintero MD Internal Medicine - Hospitalist [facility] - Adult Hospitalist Service CC: Theresa Camargo MD Voice recognition software [employer] Direct was used dictate and transcribe this document. Sole Molding Machine Operator variances may occur. Despite proofreading, typographical errors may occur. SERVICE OFFICER documented in this encounter Medications at Time of Discharge anastrozole (ARIMIDEX) 1 mg tabletIndications:p revention of breast cancer in high risk women Take 1 tablet (1 mg total) by mouth daily albuterol HFA (PROAIR HFA) 90 mcg/actuation inhaler inhale 2 puff by inhalation route every 4 - 6 hours as needed 0 Inhaler 0 07/01/2016 1 amitriptyline (ELAVIL) 50 mg tablet Take 50 mg by mouth daily with dinner 9 artificial tears (SYSTANE) 0.3 % gel Apply 1 drop to both eyes nightly as needed 1 aspirin (ASPIRIN LOW DOSE) 81 mg tablet take 1 tablet by oral route every day 0 0 02/16/2016 1 bromfenac 0.07 % dropsIndications:Bi directional Cardiovascular Shunt Administer 1 drop into affected eye(s) 2 (two) times a day 1 clopidogrel (PLAVIX) 75 mg tablet take 1 tablet by oral route every day 0 0 07/01/2016 1 cyanocobalamin (vitamin B-12) 1,000 mcg tablet take 1 tablet by oral route every day 0 0 07/01/2016 1 empagliflozin (JARDIANCE) 10 mg tabletIndications:t ype 2 diabetes mellitus Take 10 mg by mouth daily [address] (NexIUM) 40 mg capsule TAKE 1 CAPSULE DAILY 90 1 01/29/2007 1 flecainide (TAMBOCOR) 50 mg tablet take 1 tablet by oral route every 12 hours 0 0 07/01/2016 9 furosemide (LASIX) 40 mg tabletIndications:E rose Take 1.5 tablets (60 mg total) by mouth daily 45 tablet 03/22/2019 9 latanoprost (XALATAN) 0.005 % ophthalmic solution instill 1 drop by ophthalmic route every day into affected eye(s) in the evening 0 0 07/01/2016 1 levothyroxine (SYNTHROID) 25 mcg tablet Take 25 mcg by mouth animal rehabilitator before breakfast 1 menthol-zinc oxide (CALMOSEPTINE) 0.44-20.6 % ointment PRN 0 0 07/01/2016 1 metOLazone (ZAROXOLYN) 2.5 mg tablet Take 1 tablet (2.5 mg total) by mouth 2 (two) times a week 30 tablet 1 03/08/2019 0 mirabegron ER (MYRBETRIQ) 25 mg tablet extended release 24 hr 25 mg daily 9 multivitamin (ONCE DAILY) tablet tablet take 1 tablet by oral route every day with food 0 0 07/01/2016 3 peg 400-propylene glycol (SYSTANE ULTRA) 0.4-0.3 % drops PRN 0 0 07/01/2016 9 potassium chloride ER (KLOR-CON) 10 mEq CR tablet Take 4 tablet/capsule (40 mEq total) by mouth 2 (two) times a day 03/22/2019 1 psyllium, aspartame, SF (METAMUCIL SF) 3.4 gram packetIndications:c onstipation Take 1 packet by mouth 3 (three) times a day. 1 tsp. TID 9 rosuvastatin (CRESTOR) 10 mg tablet TAKE 1 TABLET BY MOUTH 1 TIME PER DAY AT BEDTIME 90 5 03/07/2009 1 SITagliptin (JANUVIA) 100 mg tablet take 1 tablet by oral route every day 0 0 07/01/2016 1 verapamil ER (VERELAN) 240 mg 24 hr capsule take 1 capsule by oral route every day 0 0 07/01/2016 9 documented as of this encounter Ordered Prescriptions Prescription Sig Dispense Quantity Refills Last Filled Start Date End Date potassium chloride ER (KLOR-CON) 10 mEq CR tablet Take 4 tablet/capsul e (40 mEq total) by mouth 2 (two) times a day 03/22/2019 1 furosemide (LASIX) 40 mg tabletIndications: Edema Take 1.5 tablets (60 mg total) by mouth daily 45 tablet 03/22/2019 9 documented in this encounter Discharge Disposition Disposition Code Departure Means Destination Discharge to SNF [facility] Gonzalez documented in this encounter Progress Notes * Kierra Turner MSW - 03/22/2019 3:34 PM CST 03/22/19 1533 Discharge Planning Support System Spouse/Significant Other;Parent Home Care Services No Patient expects to be discharged to: [facility] Facility Facility Information and Contact Matilde Stanford Does the patient need discharge transport arranged? No (Pt's spouse will transport pt by car.) SERVICE OFFICER * Darnell Gutiérrez, SYSTEMS INTEGRATION ANALYST - 03/22/2019 2:54 PM CST Physical Therapy 03/22/19 1000 PT Last Visit Session Type Treatment PT Received On 03/22/19 Pain Assessment Pain Assessment 0-10 Pain Score 0 - No pain Cognition Overall Cognitive Status WFL Seated Seated-Exercises Lower extremity Reps/Sets 10 Seated-Motion AROM Bed Mobility 1 Bed Mobility From 1 Supine Bed Mobility Type 1 To Bed Mobility to 1 Edge of bed Level of Assistance 1 Moderate assistance Transfer 1 Transfer From 1 Sit Transfer Type 1 To Transfer to 1 Stand Transfer Device 1 Wheeled walker Transfer Level of Assistance 1 Minimum assistance Ambulation 1 Distance (ft) 1 20' x 2 Surface 1 Level tile Device 1 Wheeled walker Assistance 1 Minimum assistance Plan Plan If this is the last note, consider this the discharge summary Recommendation/Plan PT Recommendation/Plan [facility] Facility SERVICE OFFICER * Kierra Turner MSW - 03/22/2019 2:20 PM CST Sw follow-up with pt spouse Thiago regarding dc plans for SNF. Pt spouse stated it was up to his daughters to make decision. Sw contacted pt's daughter Nancy and discussed dc plans andDr. Leon also spoke to dtr and recommended SNFto daughter as family was hesitant to SNF and wantedto bring pt home. Reviewed SNF choice list with daughter and she contacted pt's other two daughtersto review. Per pt's family preference referral was made to [facility] for OBRA screening. Sw will follow. 03/22/19 1419 Communications Important Message from Medicare notice given to patient? Yes (Pt spouse signed IMM. ) Fiduciary Responsibility Patient/Designated decision maker was informed of [facility] fiduciary relationship as necessary SERVICE OFFICER * Ian Martínez, [facility] [facility] - 03/22/2019 6:54 AM CST Electrolyte monitoring performed by pharmacy on labs from 03/22/19 05:44, Na+=139 K+=3.1 Phos=2.1 Potassium chloride 20 meq orally in addition to Phos-Nak 1 packet orally X 3 doses today per electrolyte replacement protocol for potassium =3.1 and phosphorous = 2.1 on 03/22/19 replacement ordered. Pharmacy will continue to follow daily. SERVICE OFFICER * Doreen Quintero MD - 03/21/2019 8:53 AM CST [facility] Hospitalist Service Progress Note Patient Name: Perla Leon Patient : 1940 Age/Sex: 78 y.o. female Room/Bed: [place] [address]/[id number] Admission Date/Time: 03/19/2019 9:19 AM Date: 03/21/2019 Time: 8:53 AM Originally Presented with Chief Complaint of fall, generalized weakness, lightheadedness Subjective: Patient states her bilateral lower extremity weakness is improving. Patient is sitting in a recliner chair. Patient is afebrile Patient is hemodynamically stable. Patient denies any chest pain, shortness of breath, abdominal pain, nausea, vomiting, diarrhea, black stool, dark stool, fresh blood in stool Patient is on room air saturating 94-96% Objective: Vitals: 24hr Min/Max: Temp Min: 36.1 ??C (96.9 ??F) Max: 36.3 ??C (97.3 ??F) Pulse Min: 64 Max: 74 BP Min: 118/51 Max: 132/60 Resp Min: 14 Max: 18 SpO2 Min: 94 % Max: 96 % Most Recent : Vitals: 03/21/19 0806 BP: 130/63 Pulse: 72 Resp: 18 Temp: 36.3 ??C (97.3 ??F) SpO2: 96% I/O last 2 completed shifts: In: 970 [P.O.:960; I.V.:10] Out: 1150 [Urine:1150] No intake/output data recorded. Physical Exam: Patient seen and examined General-Not in acute distress Head: Atraumatic, normocephalic Neck: Supple CV: S1, S2, RRR Respiratory: Clear to auscultation bilaterally GI: Abdomen soft, nontender, obese, bowel sounds positive Neuro: AAO times 3. 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 Patient has chronic bilateral lower extremity redness for past few months per patient MSK: Bilateral lower extremity edema 1+. No calf tenderness Psych: Normal mood and affect Labs: Recent Results (from the past 24 hour(s)) POCT glucose Collection Time: 03/20/19 12:10 PM Result Value Ref Range Glucose, POC 191 (H) 71 - 98 mg/dL Potassium Collection Time: 03/20/19 2:25 PM Result Value Ref Range Potassium, pl 2.9 (Critical) 3.3 - 4.9 mmol/L POCT glucose Collection Time: 03/20/19 4:38 PM Result Value Ref Range Glucose, POC 262 (H) 71 - 98 mg/dL Potassium Collection Time: 03/20/19 6:15 PM Result Value Ref Range Potassium, pl 2.9 (Critical) 3.3 - 4.9 mmol/L Potassium Collection Time: 03/20/19 7:37 PM Result Value Ref Range Potassium, pl 2.9 (Critical) 3.3 - 4.9 mmol/L POCT glucose Collection Time: 03/20/19 9:38 PM Result Value Ref Range Glucose, POC 211 (H) 71 - 98 mg/dL Magnesium Collection Time: 03/21/19 12:08 AM Result Value Ref Range Magnesium 1.9 1.6 - 2.4 mg/dL Potassium Collection Time: 03/21/19 12:13 AM Result Value Ref Range Potassium, pl 2.8 (Critical) 3.3 - 4.9 mmol/L Renal function panel Collection Time: 03/21/19 3:28 AM Result Value Ref Range Sodium 139 135 - 145 mmol/L Potassium, pl 2.6 (Critical) 3.3 - 4.9 mmol/L Chloride 99 97 - 110 mmol/L CO2 31 22 - 32 mmol/L Anion gap 10 2 - 15 mmol/L BUN 15 8 - 25 mg/dL Creatinine 0.57 (L) 0.60 - 1.10 mg/dL Glucose 171 70 - 199 mg/dL Calcium 9.8 8.5 - 10.3 mg/dL Phosphorus, pl 2.5 2.3 - 4.5 mg/dL Albumin 3.2 (L) 3.5 - 5.0 g/dL eGFR Collection Time: 03/21/19 3:28 AM Result Value Ref Range GFR 88 mL/min/1.73 m2 POCT glucose Collection Time: 03/21/19 3:32 AM Result Value Ref Range Glucose, POC 148 (H) 71 - 98 mg/dL POCT glucose Collection Time: 03/21/19 7:46 AM Result Value Ref Range Glucose, POC 136 (H) 71 - 98 mg/dL Pertinent Labs: I have reviewed the pertinent labs. Radiology: Ct Head Wo Contrast Result Date: 03/19/2019 Narrative: PROCEDURE: CT HEAD WO CONTRAST HISTORY: Head pain. Recent fall. COMPARISON: Brain CT 09/29/2018 TECHNIQUE: Serial axial images of the brain were obtained without contrast. FINDINGS: There is no acute intracranial hemorrhage, midline shift or mass effect. There is mild diffuse cortical atrophy. Moderate small vessel White matter ischemic disease is again noted. There is prominent carotid and vertebral arterial calcification bilaterally. There is no acute skull fracture. There is minimal ethmoid sinus mucosal thickening otherwise the paranasal sinuses are clear. 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 The mastoids are clear bilaterally. Impression: 1. NO ACUTE INTRACRANIAL ABNORMALITY. 2. MODERATE SMALL VESSEL WHITE MATTER ISCHEMIC DISEASE. Electronically signed by: Raghu Gutierrez M.D. Ct Cervical Spine Wo Contrast Result Date: 03/19/2019 Narrative: CT CERVICAL SPINE WO CONTRAST HISTORY: Cervical pain status post fall TECHNIQUE: Serial axial images of the cervical spine with reconstructed coronal and sagittal views obtained. COMPARISON: Cervical spine CT 09/29/2018 FINDINGS: There is no acute cervical spine fracture or dislocation. There is mild C5-C6 and moderate C6-C7 disc space narrowing. There is a grade 1 anterior spondylolisthesis of C3 relative to C4 and a grade 1 posterior spondylolisthesis of C5 relative to C6 again noted. There are degenerative endplate spurs at multiple levels. There is also multilevel facet and uncovertebral joint osteoarthritis. Overall no significant central canal stenosis is identified. Is mild neural foraminal stenosis on the left at C4-C5, mild left and moderate right neural foraminal stenosis at C5-C6 and mild left neural foraminal stenosis at C6-C7. Impression: NO ACUTE CERVICAL SPINE FRACTURE OR DISLOCATION WITH MULTILEVEL OSTEOARTHRITIS OF THE CERVICAL SPINE. Electronically signed by: Raghu Gutierrez M.D. Xr Chest 1 Vw Portable Result Date: 03/06/2019 Narrative: XR CHEST 1 VIEW HISTORY: lightheaded. COMPARISON: Portable chest on 04/07/2018 VIEWS: Erect AP portable chest at 0152 hours FINDINGS: Heart size is normal. Pulmonary vascularity is normal . 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 No infiltrate, mass or pleural effusion is seen. Bony structures are unremarkable. 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 Impression: 1. No active disease. Electronically signed by: Jeromy Poole Jr., M.D. Allergies: Allergies Allergen Reactions ??? Donepezil Other [...] Medication List: Scheduled Meds:amitriptyline, 50 mg, oral, Daily with dinner anastrozole, 1 mg, oral, Nightly aspirin, 81 mg, oral, Daily clopidogrel, 75 mg, oral, Daily cyanocobalamin, 1,000 mcg, oral, Daily enoxaparin, 40 mg, subcutaneous, Daily-2100 famotidine, 20 mg, oral, Daily flecainide, 50 mg, oral, BID furosemide, 60 mg, oral, Daily insulin lispro, 1-3 Units, subcutaneous, Nightly insulin lispro, 1-5 Units, subcutaneous, TID with meals latanoprost, 1 drop, each eye, Nightly levothyroxine, 25 mcg, oral, Daily - 0600 metOLazone, 2.5 mg, oral, Once per day on Mon Magali multivitamin with minerals, 1 tablet, oral, Daily oxybutynin XL, 10 mg, oral, Daily potassium chloride ER, 40 mEq, oral, Daily potassium, sodium phosphates, 1 packet, oral, TID rosuvastatin, 10 mg, oral, Daily verapamil SR, 240 mg, oral, Daily Continuous Infusions: PRN Meds:??? acetaminophen ??? bisacodyl EC ??? dextrose OR dextrose ??? glucagon ??? magnesium hydroxide ??? mineral oil ??? ondansetron ODT OR ondansetron ??? lubricant ASSESSMENT AND PLAN: 1. 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 PT/OT is consulted. Likely patient will need placement due to recurrent fall. Lingo Cleaner are consulted. Patient evaluated by neurology-recommends physical therapy. 2. Hypokalemia Potassium is repleted. Continue with potassium supplement. Monitor BMP closely. Telemetry monitoring 3. History of paroxysmal atrial fibrillation Currently patient is in sinus rhythm Patient is maintained on Plavix, verapamil and flecainide Patient follows up with Dr. Gauthier are Patient is not on anticoagulation likely due to risk of fall 4. CATY on CPAP Continue with nocturnal CPAP 5. Hypercalcemia Likely due to calcium and vitamin-D supplements. Calcium and vitamin-D supplements are discontinued. Today serum calcium 9.8 PTH 41. Vitamin-D level 38. PTH 41. Vitamin-D level 38. Monitor serum calcium closely 6. Diabetes type 2 Blood sugars are controlled. Continue with current insulin regimen. Monitor blood sugar closely. 7. 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 Chronic bilateral lower extremity lymphedema Continue with diuresis. Leg elevation 9. DVT/GI prophylaxis Full code MDM: LOw complexity I. Doreen Quintero MD Internal Medicine - Hospitalist [facility] - Adult Hospitalist Service 03/21/2019 8:53 AM Voice recognition software [employer] Direct was used dictate and transcribe this document. Sole Molding Machine Operator variances may occur. Despite proofreading, typographical errors may occur. SERVICE OFFICER * Nieves Jordan [facility] - 03/21/2019 8:35 AM CST Electrolyte monitoring performed by pharmacy on labs from 03/21 328 (date & time), Na+=139 K+=2.6 Mg+=1.9 Phos=2.5 Pot/sod Phos 1 packet oral TID x 3 doses and Potassium chloride 20 meq oral x 1 dose replacement ordered. Pharmacy will continue to follow daily. SERVICE OFFICER * Doreen Quintero MD - 03/20/2019 4:29 PM CDT [facility] Hospitalist Service Progress Note Patient Name: Perla Leon Patient : 1940 Age/Sex: 78 y.o. female Room/Bed: [place] [address]/[id number] Admission Date/Time: 03/19/2019 9:19 AM Date: 03/20/2019 Time: 4:29 PM Originally Presented with Chief Complaint of fall, generalized weakness, lightheadedness Subjective: Patient is lying in the bed. Patient is afebrile. Patient is hemodynamically stable. Patient denies any chest pain, shortness of breath, abdominal pain, nausea, vomiting, diarrhea, black stool, dark stool, fresh blood in stool. Patient is saturating 95% on room air. Objective: Vitals: 24hr Min/Max: Temp Min: 36.2 ??C (97.2 ??F) Max: 36.8 ??C (98.3 ??F) Pulse Min: 68 Max: 84 BP Min: 120/50 Max: 128/57 Resp Min: 10 Max: 18 SpO2 Min: 90 % Max: 95 % Most Recent : Vitals: 03/20/19 1523 BP: 128/57 Pulse: 70 Resp: 14 Temp: 36.2 ??C (97.2 ??F) SpO2: 95% I/O last 2 completed shifts: In: 400 [P.O.:400] Out: 125 [Urine:125] I/O this shift: In: 970 [P.O.:960; I.V.:10] Out: 150 [Urine:150] Physical Exam: Patient seen and examined General-Not in acute distress Head: Atraumatic, normocephalic Neck: Supple CV: S1, S2, RRR Respiratory: Clear to auscultation bilaterally GI: Abdomen soft, nontender, obese, bowel sounds positive Neuro: AAO times 3. 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 Patient has chronic bilateral lower extremity redness for past few months per patient MSK: Bilateral lower extremity edema 2+. No calf tenderness Psych: Normal mood and affect Labs: Recent Results (from the past 24 hour(s)) POCT glucose Collection Time: 03/19/19 4:46 PM Result Value Ref Range Glucose, POC 225 (H) 71 - 98 mg/dL Basic metabolic panel Collection Time: 03/19/19 6:56 PM Result Value Ref Range Sodium 139 135 - 145 mmol/L Potassium, pl 3.4 3.3 - 4.9 mmol/L Chloride 98 97 - 110 mmol/L CO2 33 (H) 22 - 32 mmol/L Anion gap 8 2 - 15 mmol/L BUN 20 8 - 25 mg/dL Creatinine 0.75 0.60 - 1.10 mg/dL Glucose 234 (H) 70 - 199 mg/dL Calcium 10.8 (H) 8.5 - 10.3 mg/dL Calcium, ionized, whole blood Collection Time: 03/19/19 6:56 PM Result Value Ref Range Ca, ionized, bld 5.46 (H) 4.61 - 5.17 mg/dL PTH Collection Time: 03/19/19 6:56 PM Result Value Ref Range PTH 41 15 - 65 pg/mL Vitamin D 25 hydroxy Collection Time: 03/19/19 6:56 PM Result Value Ref Range Vitamin D, 25-hydroxy 38 30 - 80 ng/mL eGFR Collection Time: 03/19/19 6:56 PM Result Value Ref Range GFR 75 mL/min/1.73 m2 POCT glucose Collection Time: 03/19/19 9:54 PM Result Value Ref Range Glucose, POC 203 (H) 71 - 98 mg/dL POCT glucose Collection Time: 03/20/19 2:40 AM Result Value Ref Range Glucose, POC 158 (H) 71 - 98 mg/dL CBC with auto differential Collection Time: 03/20/19 3:36 AM Result Value Ref Range WBC 10.8 (H) 3.8 - 9.9 K/cumm Hgb 12.2 11.9 - 15.5 g/dL Hct 37.8 35.6 - 45.5 % Plt 333 150 - 400 K/cumm MPV 10.6 9.1 - 12.3 fL RBC 4.49 3.90 - 5.20 M/cumm MCV 84.2 81.3 - 96.4 fL MCH 27.2 27.1 - 33.3 pg MCHC 32.3 32.3 - 35.7 g/dL RDW CV 16.0 (H) 11.1 - 14.9 % RDW SD 48.8 (H) 35.7 - 48.1 fL NRBC abs 0.00 0.00 - 0.01 K/cumm Renal function panel Collection Time: 03/20/19 3:36 AM Result Value Ref Range Sodium 140 135 - 145 mmol/L Potassium, pl 2.9 (Critical) 3.3 - 4.9 mmol/L Chloride 100 97 - 110 mmol/L CO2 29 22 - 32 mmol/L Anion gap 11 2 - 15 mmol/L BUN 17 8 - 25 mg/dL Creatinine 0.55 (L) 0.60 - 1.10 mg/dL Glucose 174 70 - 199 mg/dL Calcium 10.4 (H) 8.5 - 10.3 mg/dL Phosphorus, pl 1.9 (L) 2.3 - 4.5 mg/dL Albumin 3.5 3.5 - 5.0 g/dL Magnesium Collection Time: 03/20/19 3:36 AM Result Value Ref Range Magnesium 2.0 1.6 - 2.4 mg/dL Differential, auto Collection Time: 03/20/19 3:36 AM Result Value Ref Range Neutrophil abs 7.7 (H) 1.7 - 6.5 K/cumm Imm gran abs 0.0 0.0 - 0.1 K/cumm Lymphocyte abs 1.5 0.8 - 3.3 K/cumm Monocyte abs 1.3 (H) 0.2 - 0.8 K/cumm Eosinophil abs 0.3 0.0 - 0.5 K/cumm Basophil abs 0.0 0.0 - 0.1 K/cumm Neutrophil pct 71.0 % Imm gran pct 0.5 % Lymphocyte pct 13.8 % Monocyte pct 11.9 % Eosinophil pct 2.5 % Basophil pct 0.3 % eGFR Collection Time: 03/20/19 3:36 AM Result Value Ref Range GFR 89 mL/min/1.73 m2 POCT glucose Collection Time: 03/20/19 8:07 AM Result Value Ref Range Glucose, POC 145 (H) 71 - 98 mg/dL POCT glucose Collection Time: 03/20/19 12:10 PM Result Value Ref Range Glucose, POC 191 (H) 71 - 98 mg/dL Potassium Collection Time: 03/20/19 2:25 PM Result Value Ref Range Potassium, pl 2.9 (Critical) 3.3 - 4.9 mmol/L Pertinent Labs: I have reviewed the pertinent labs. Radiology: Ct Head Wo Contrast Result Date: 03/19/2019 Narrative: PROCEDURE: CT HEAD WO CONTRAST HISTORY: Head pain. Recent fall. COMPARISON: Brain CT 09/29/2018 TECHNIQUE: Serial axial images of the brain were obtained without contrast. FINDINGS: There is no acute intracranial hemorrhage, midline shift or mass effect. There is mild diffuse cortical atrophy. Moderate small vessel White matter ischemic disease is again noted. There is prominent carotid and vertebral arterial calcification bilaterally. There is no acute skull fracture. There is minimal ethmoid sinus mucosal thickening otherwise the paranasal sinuses are clear. 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 The mastoids are clear bilaterally. Impression: 1. NO ACUTE INTRACRANIAL ABNORMALITY. 2. MODERATE SMALL VESSEL WHITE MATTER ISCHEMIC DISEASE. Electronically signed by: Raghu Gutierrez M.D. Ct Cervical Spine Wo Contrast Result Date: 03/19/2019 Narrative: CT CERVICAL SPINE WO CONTRAST HISTORY: Cervical pain status post fall TECHNIQUE: Serial axial images of the cervical spine with reconstructed coronal and sagittal views obtained. COMPARISON: Cervical spine CT 09/29/2018 FINDINGS: There is no acute cervical spine fracture or dislocation. There is mild C5-C6 and moderate C6-C7 disc space narrowing. There is a grade 1 anterior spondylolisthesis of C3 relative to C4 and a grade 1 posterior spondylolisthesis of C5 relative to C6 again noted. There are degenerative endplate spurs at multiple levels. There is also multilevel facet and uncovertebral joint osteoarthritis. Overall no significant central canal stenosis is identified. Is mild neural foraminal stenosis on the left at C4-C5, mild left and moderate right neural foraminal stenosis at C5-C6 and mild left neural foraminal stenosis at C6-C7. Impression: NO ACUTE CERVICAL SPINE FRACTURE OR DISLOCATION WITH MULTILEVEL OSTEOARTHRITIS OF THE CERVICAL SPINE. Electronically signed by: Raghu Gutierrez M.D. Xr Chest 1 Vw Portable Result Date: 03/06/2019 Narrative: XR CHEST 1 VIEW HISTORY: lightheaded. COMPARISON: Portable chest on 04/07/2018 VIEWS: Erect AP portable chest at 0152 hours FINDINGS: Heart size is normal. Pulmonary vascularity is normal . 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 No infiltrate, mass or pleural effusion is seen. Bony structures are unremarkable. 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 Impression: 1. No active disease. Electronically signed by: Jeromy Poole Jr., M.D. Allergies: Allergies Allergen Reactions ??? Donepezil Other [...] Medication List: Scheduled Meds:amitriptyline, 50 mg, oral, Daily with dinner anastrozole, 1 mg, oral, Nightly aspirin, 81 mg, oral, Daily clopidogrel, 75 mg, oral, Daily cyanocobalamin, 1,000 mcg, oral, Daily enoxaparin, 40 mg, subcutaneous, Daily-2100 famotidine, 20 mg, oral, Daily flecainide, 50 mg, oral, BID furosemide, 60 mg, oral, Daily insulin lispro, 1-3 Units, subcutaneous, Nightly insulin lispro, 1-5 Units, subcutaneous, TID with meals latanoprost, 1 drop, each eye, Nightly levothyroxine, 25 mcg, oral, Daily - 0600 metOLazone, 2.5 mg, oral, Once per day on Mon Magali multivitamin with minerals, 1 tablet, oral, Daily oxybutynin XL, 10 mg, oral, Daily potassium chloride ER, 40 mEq, oral, Daily potassium, sodium phosphates, 1 packet, oral, TID rosuvastatin, 10 mg, oral, Daily verapamil SR, 240 mg, oral, Daily Continuous Infusions: PRN Meds:??? acetaminophen ??? bisacodyl EC ??? dextrose OR dextrose ??? glucagon ??? magnesium hydroxide ??? mineral oil ??? ondansetron ODT OR ondansetron ??? lubricant ASSESSMENT AND PLAN: 1. 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 PT/OT is consulted. Likely patient will need placement due to recurrent fall. Lingo Cleaner are consulted. Patient evaluated by neurology-recommends physical therapy. 2. Hypokalemia Potassium is repleted. Continue with potassium supplement. Monitor BMP closely. Telemetry monitoring 3. History of paroxysmal atrial fibrillation Currently patient is in sinus rhythm Patient is maintained on Plavix, verapamil and flecainide Patient follows up with Dr. Gauthier are Patient is not on anticoagulation likely due to risk of fall 4. CATY on CPAP Continue with nocturnal CPAP 5. Hypercalcemia Likely due to calcium and vitamin-D supplements. Calcium and vitamin-D supplements are discontinued. Today serum calcium 10.4. PTH 41. Vitamin-D level 38. PTH 41. Vitamin-D level 38. Monitor serum calcium closely 6. Diabetes type 2 Blood sugars are controlled. Continue with current insulin regimen. Monitor blood sugar closely. 7. 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 Chronic bilateral lower extremity lymphedema Continue with diuresis. Leg elevation 9. DVT/GI prophylaxis Full code MDM: Moderate complexity I. Doreen Quintero MD Internal Medicine - Hospitalist [facility] - Adult Hospitalist Service 03/20/2019 4:29 PM Voice recognition software [employer] Direct was used dictate and transcribe this document. Sole Molding Machine Operator variances may occur. Despite proofreading, typographical errors may occur. * Vannesa Duke, PT - 03/20/2019 1:21 PM CDT Physical Therapy 03/20/19 1020 General Chart Reviewed Yes Session Type Evaluation PT Received On 03/20/19 Subjective Agreeable to Therapy (Initially said she couldn't walk and thought leaving today.) Subjective Comment A lot info given by spouse who walked into room. Pt uses a scooter outside and a4ww inside. AT times will furniture walk. Hx of multi falls all the time. Thats what brought them here. Additional Pertinent History Multi falls. Has Spastic Paraplegia/familial with chronic B LE weakness. Family/Caregiver Present Yes (spouse) Physical Therapy-Patient Goal Spouse states they want her to be able to walk and take her home. However they are talking about an [facility] that can also pick her up if she falls as she falls a lot. Precautions Precautions Fall risk Home Living Home Mobility Equipment Lift Chair;4-Wheeled walker;Scooter Additional Comments sleeps in lift chair, can only get out of chairs with arms. Sometimes not then. Prior Function Level of Liberty Independent functional transfers;Independent with ambulation (on good days.) Lives With Spouse Fall within the last 6 months Yes Fall within the last 6 months comment Falls a lot and they have to call ambulance as spouse can no longer lift her. Prior Function Comments Amb with 4ww shorter distances. Scooter in public. Sometimes at home furniture walks. Pain Assessment Pain Assessment No/denies pain Cognition Cognition Comments Pt states that a med she is on can cause dememtia and she feels she has it. Spouse states she forgets all the time that she has told him stuff. Overall Cognitive Status WFL Orientation Oriented X4 (person, place, time, situation) Following Commands Follows one step commands with increased time Insight Fully aware of deficits Compliance/Behavior Easy to engage Balance Balance Yes Static Sitting Balance Static Sitting-Balance Support Feet supported;Bilateral upper extremity supported Static Sitting-Sitting Surface Bed Static Sitting-Level of Assistance Contact guard Static Standing Balance Static Standing-Balance Support Right upper extremity supported Static Standing-Standing Surface Floor Static Standing-Level of Assistance Moderate assistance Bed Mobility Bed Mobility Yes Bed Mobility 1 Bed Mobility From 1 Supine Bed Mobility Type 1 To Bed Mobility to 1 Edge of bed Level of Assistance 1 Minimum assistance;Moderate assistance Bed Mobility 2 Bed Mobility From 2 Edge of bed Bed Mobility Type 2 To Bed Mobility to 2 Supine Level of Assistance 2 Minimum assistance;Maximum assistance (min x 1 upper body, max x 1 LE's) Transfers Transfer Yes Transfer 1 Transfer From 1 Bed Transfer Type 1 To Transfer to 1 Commode-standard Technique 1 To left Transfer Device 1 Hand held assist Transfer Level of Assistance 1 Moderate assistance Trials/Comments 1 Easier to move feet going this direction Transfers 2 Transfer From 2 Commode-standard Transfer Type 2 To Transfer to 2 Bed Technique 2 To right Transfer Device 2 Hand held assist Transfer Level of Assistance 2 Minimum assistance;Moderate assistance (x2 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 it's harder for her to move L LE Ambulation Functional Ambulation Category 4 Ambulation No Ambulation 1 Ambulation Comments 1 only trans to [facility] that was directly in front of her sittng at EOB Strength RLE R Hip Flexion 2-/5 R Ankle Dorsiflexion 2+/5 R Knee Flexion 2-/5 Strength LLE L Hip Flexion 1/5 L Knee Flexion 1/5 L Ankle Dorsiflexion 2+/5 Other Comments Other PT Comments Feel pt will need SNF at least short term. Spouse states dts won't let her go to [facility]. They would like her to go to [facility] that can lift her if she falls. DC plans pending. Assessment Prognosis Fair Problem List Gait deviations;Decreased strength;Decreased range of motion;Decreased endurance;Impaired balance;Decreased mobility;Obesity (Spastic Paragplegia/familial) Plan Plan Plan of care initiated Recommendation/Plan PT Recommendation/Plan [facility] Facility (Family states they want her to go to [facility]?) PT Recommendation/Plan Comments Spouse states dtrs say they won't let her go to [facility] PT Frequency 3-5x/wk Treatment/Interventions Bed mobility;Functional transfer training;Gait training;Therapeutic exercise (pt/fam educ) PT Evaluation Complete Yes Vannesa Duke, PT * Nieves Jordan [facility] - 03/20/2019 8:36 AM CDT Electrolyte monitoring performed by pharmacy on labs from 03/20 0336 (date & time), Na+=140 K+=2.9 Mg+=2 Phos=1.9 Pot/sod phos 1 packet oral TID x 3 replacement ordered. Potassium chloride 40 meq ER oral q4hrs x 2was ordered by this am. Pharmacy will continue to follow daily. * Kierra Turner MSW - 03/19/2019 3:40 PM CDT 03/19/19 0855 Communications [facility] Facility list given to patient/investment representative? Yes Fiduciary Responsibility Patient/Designated decision maker was informed of [facility] fiduciary relationship as necessary * Kierra Turner MSW - 03/19/2019 3:36 PM CDT Referral received for dc planning. Sw met with pt spouse while pt sleeping. Pt spouse reported pt fell two times this am. Spouse can not take care of spouse or lift her anymore. Pt uses w/walker and has wheelchair. Pt was admitted to hospital for 4 days last month. Spouse and family are consideringlong-term placement and will review SNF choice list provided. Spouse was not able to tell if can ptprivately for custodial or needs financial assists (Medicaid application) and stated daughter Bekah manages finances. Sw spoke with pt's nurse Clara and no dc date planned yet. Sw will follow-up. 03/19/19 0859 Information Information Obtained From Spouse Name Thiago Referral Data Referral Source Physician Referral Reason Discharge Planning Prior to Admission Primary Caregiver Spouse Support System Spouse/Significant Other;Parent Support system contact info (name, phone, availablity) Spouse; daughters Bekah, Ange and Nancy Home Care Services No Durable Medical Equipment Walker (wheeled);Wheelchair Living Arrangements Spouse/significant other Type of Residence Private residence Steps in home? Yes, Outside of home;No steps inside or outside Medication management Needs Assistance (Comment) (Pt's friend sets up medications in pill box; spouse gives to pt.) Financial Resource Income Long-Term/Pension Payor Source Medicare;Supplemental;Prescription benefits Potential Discharge Needs Pt/Family agrees with Anticipated Level of Care Yes Patient expects to be discharged to: [facility] Facility Information and Contact (Pt spouses and family are reviewing SNF choice list. ) Dialysis No Behavioral Health Services No * Kierra Turner MSW - 03/19/2019 3:29 PM CDT 03/19/19 1528 Basic Mobility - 6 Click How much difficulty does the patient have: Turning over in bed 2 How much difficulty does the patient currently have: Sitting down and standing up from a chair witharms? 1 (pt gets dizzy and falls; pt fell 2 times this morning.) How much difficulty does the patient have: Moving from lying on back to sitting on the side of the bed? 2 How much difficulty does the patient have: Moving to and from a bed to a chair including wheelchair? 1 How much help does the patient currently need: Walk in hospital room? 1 How much help from another person does the patient currently need: Climbing 3-5 steps with a railing? 1 Total Score (range 6-24) 8 documented in this encounter H&P Notes * Doreen Quintero MD - 03/19/2019 3:55 PM CDT [facility] Adult Hospitalist Service History and Physical Patient Name: Perla Leon Patient : 1940 Age/Sex: 78 y.o. female Room/Bed: [id number]/[id number] Admission Date/Time: 03/19/2019 9:19 AM Date: 03/19/2019 Time: 3:55 PM Primary Care Physician: Theresa Camargo MD PCP Office Location: [address] [place] [address] PCP Chief Complaint Patient is a 78 y.o. female with chief complaint of fall, generalized weakness, lightheadedness. HPI: 78-year-old female with past medical history as mentioned presenting to emergency room for evaluation following 2 falls that occurred this morning. Patient reports that she has a history of familial spastic paraplegia and has chronic bilateral lower extremity weakness but usually she walks with walker. Patient states for past few months her lower extremity weakness is progressively getting worse and has difficulty ambulating. Patient states this morning she had lightheadedness and she fell twice within an hour. Patient states she has chronicdizziness. Patient denies any head trauma or any injury. Patient denies any loss of consciousness. Patient was brought to emergency room. In emergency room patient noted to have hypokalemia. 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 Patient lives at home. Usually patient ambulates with walker. Family History: Family History Problem Relation Age of Onset ??? Breast cancer Mother Cancer, breast; /Cancer -breast; ??? Heart failure Father Congestive heart failure; ??? Hypertension Brother Hypertension; ??? Hypertension Brother Hypertension; Review of Systems: Positive for fall, lightheadedness. Patient denies any loss of consciousness, head trauma on any injury. Patient denies any pain anywhere Patient denies any Chest pain, Shortness of breath, palpitation, Headache,Ear pain, Blurry vision, Fever, Abdominal Pain, Nausea, Vomiting, Diarrhea, Urinary Symptoms, Loss of conciousness, mood changes, joint pain Allergies: Allergies Allergen Reactions ??? Donepezil Other (See comments) Reaction: unknown reaction, , , Reaction: yeast infection, ??? Black Pepper ??? Diltiazem Edema, Diarrhea and Other (See comments) Reaction: edema, , Reaction: diarrhea, , , Reaction: ankles swell, ??? Fluticasone Other (See comments) Reaction: colon problems, ??? Metformin Diarrhea Reaction: diarrhea, , ??? Salmeterol Other (See comments) Reaction: colon problems, Home Medications: Medications Prior to Admission Medication Sig Dispense Refill Last Dose ??? artificial tears (SYSTANE) 0.3 % gel Apply 1 drop to both eyes nightly as needed ??? bromfenac 0.07 % drops Administer 1 drop into affected eye(s) ??? mirabegron ER (MYRBETRIQ) 25 mg tablet extended release 24 hr 25 mg daily ??? albuterol HFA (PROAIR HFA) 90 mcg/actuation inhaler inhale 2 puff by inhalation route every 4 -6 hours as needed 0 Inhaler 0 More than a month at Unknown time ??? amitriptyline (ELAVIL) 25 mg tablet take 1 tablet (25MG) by ORAL route every 24 hours with meals (Patient taking differently: 50 mg ) 0 ??? anastrozole (ARIMIDEX) 1 mg tablet Take 1 mg by mouth nightly. Past Week at Unknown time ??? artificial tears (SYSTANE GEL) 0.3 % gel prn 0 0 03/05/2019 at Unknown time ??? aspirin (ASPIRIN LOW DOSE) 81 mg tablet take 1 tablet by oral route every day 0 0 03/06/2019 atUnknown time ??? clopidogrel (PLAVIX) 75 mg tablet take 1 tablet by oral route every day 0 0 Unknown at Unknown time ??? cyanocobalamin (vitamin B-12) 1,000 mcg tablet take 1 tablet by oral route every day 0 0 03/05/2019 at Unknown time ??? empagliflozin (JARDIANCE) 10 mg tablet Take 10 mg by mouth daily ??? esomeprazole DR (NexIUM) 40 mg capsule TAKE 1 CAPSULE DAILY 90 1 03/05/2019 at Unknown time ??? flecainide (TAMBOCOR) 50 mg tablet take 1 tablet by oral route every 12 hours 0 0 03/05/2019 atUnknown time ??? furosemide (LASIX) 40 mg tablet Take 1 tablet (40 mg total) by mouth daily. (Patient taking differently: Take 60 mg by mouth daily ) ??? latanoprost (XALATAN) 0.005 % ophthalmic solution instill 1 drop by ophthalmic route every day into affected eye(s) in the evening 0 0 03/05/2019 at Unknown time ??? levothyroxine (SYNTHROID) 25 mcg tablet Take 25 mcg by mouth animal rehabilitator before breakfast ??? menthol-zinc oxide (CALMOSEPTINE) 0.44-20.6 % ointment PRN 0 0 Unknown at Unknown time ??? metOLazone (ZAROXOLYN) 2.5 mg tablet Take 1 tablet (2.5 mg total) by mouth 2 (two) times a week(Patient taking differently: Take 2.5 mg by mouth 2 (two) times a week ) 30 tablet 1 ??? multivitamin (ONCE DAILY) tablet tablet take 1 tablet by oral route every day with food 0 0 03/05/2019 at Unknown time ??? peg 400-propylene glycol (SYSTANE ULTRA) 0.4-0.3 % drops PRN (Patient taking differently: Administer 2 drops into both eyes as needed (dry eyes). ) 0 0 Unknown at Unknown time ??? potassium chloride ER (KLOR-CON) 10 mEq CR tablet Take 4 tablet/capsule (40 mEq total) by mouthdaily 30 tablet 3 ??? psyllium, aspartame, SF (METAMUCIL SF) 3.4 gram packet Take 1 packet by mouth 3 (three) times aday. 1 tsp. TID Past Month at Unknown time ??? rosuvastatin (CRESTOR) 10 mg tablet TAKE 1 TABLET BY MOUTH 1 TIME PER DAY AT BEDTIME 90 5 03/05/2019 at Unknown time ??? SITagliptin (JANUVIA) 100 mg tablet take 1 tablet by oral route every day 0 0 Unknown at Unknown time ??? verapamil ER (VERELAN) 240 mg 24 hr capsule take 1 capsule by oral route every day 0 0 03/05/2019 at Unknown time Objective: Vitals: 24hr Min/Max: Temp Min: 36.5 ??C (97.7 ??F) Max: 36.7 ??C (98.1 ??F) Pulse Min: 79 Max: 86 BP Min: 126/55 Max: 148/69 Resp Min: 16 Max: 23 SpO2 Min: 91 % Max: 97 % Most Recent : Vitals: 03/19/19 1450 BP: 126/55 Pulse: 79 Resp: Temp: 36.7 ??C (98.1 ??F) SpO2: 97% No intake/output data recorded. No intake/output data recorded. Physical Exam: Patient seen and examined General-Not in acute distress Head: Atraumatic, normocephalic Neck: Supple CV: S1, S2, RRR Respiratory: Clear to auscultation bilaterally GI: Abdomen soft, nontender, obese, bowel sounds positive Neuro: AAO times 3. 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 Patient has chronic bilateral lower extremity redness for past few months per patient MSK: Bilateral lower extremity edema 2+. No calf tenderness Psych: Normal mood and affect Laboratory Results: Recent Results (from the past 24 hour(s)) Protime-INR Collection Time: 03/19/19 10:13 AM Result Value Ref Range PT 12.5 9.5 - 13.0 sec INR 1.11 0.90 - 1.20 Comprehensive metabolic panel Collection Time: 03/19/19 10:13 AM Result Value Ref Range Sodium 136 135 - 145 mmol/L Potassium, pl 2.5 (Critical) 3.3 - 4.9 mmol/L Chloride 93 (L) 97 - 110 mmol/L CO2 32 22 - 32 mmol/L Anion gap 11 2 - 15 mmol/L BUN 23 8 - 25 mg/dL Creatinine 0.67 0.60 - 1.10 mg/dL Glucose 177 70 - 199 mg/dL Calcium 11.8 (H) 8.5 - 10.3 mg/dL Bilirubin, total 0.5 0.1 - 1.2 mg/dL Protein, pl 6.4 (L) 6.5 - 8.5 g/dL Albumin 4.1 3.5 - 5.0 g/dL Alk phos 104 40 - 130 Units/L ALT 30 7 - 45 Units/L AST 29 10 - 45 Units/L Pro B-type natriuretic peptide Collection Time: 03/19/19 10:13 AM Result Value Ref Range NT-proBNP 225 <=450 pg/mL eGFR Collection Time: 03/19/19 10:13 AM Result Value Ref Range GFR 83 mL/min/1.73 m2 CBC with auto differential Collection Time: 03/19/19 10:13 AM Result Value Ref Range WBC 11.8 (H) 3.8 - 9.9 K/cumm Hgb 13.4 11.9 - 15.5 g/dL Hct 40.0 35.6 - 45.5 % Plt 378 150 - 400 K/cumm MPV 10.8 9.1 - 12.3 fL RBC 4.90 3.90 - 5.20 M/cumm MCV 81.6 81.3 - 96.4 fL MCH 27.3 27.1 - 33.3 pg MCHC 33.5 32.3 - 35.7 g/dL RDW CV 15.8 (H) 11.1 - 14.9 % RDW SD 46.3 35.7 - 48.1 fL NRBC abs 0.00 0.00 - 0.01 K/cumm Differential, auto Collection Time: 03/19/19 10:13 AM Result Value Ref Range Neutrophil abs 9.0 (H) 1.7 - 6.5 K/cumm Imm gran abs 0.1 0.0 - 0.1 K/cumm Lymphocyte abs 1.4 0.8 - 3.3 K/cumm Monocyte abs 1.2 (H) 0.2 - 0.8 K/cumm Eosinophil abs 0.2 0.0 - 0.5 K/cumm Basophil abs 0.0 0.0 - 0.1 K/cumm Neutrophil pct 75.8 % Imm gran pct 0.5 % Lymphocyte pct 11.5 % Monocyte pct 10.5 % Eosinophil pct 1.3 % Basophil pct 0.4 % Radiology: Ct Head Wo Contrast Result Date: 03/19/2019 Narrative: PROCEDURE: CT HEAD WO CONTRAST HISTORY: Head pain. Recent fall. COMPARISON: Brain CT 09/29/2018 TECHNIQUE: Serial axial images of the brain were obtained without contrast. FINDINGS: There is no acute intracranial hemorrhage, midline shift or mass effect. There is mild diffuse cortical atrophy. Moderate small vessel White matter ischemic disease is again noted. There is prominent carotid and vertebral arterial calcification bilaterally. There is no acute skull fracture. There is minimal ethmoid sinus mucosal thickening otherwise the paranasal sinuses are clear. 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 The mastoids are clear bilaterally. Impression: 1. NO ACUTE INTRACRANIAL ABNORMALITY. 2. MODERATE SMALL VESSEL WHITE MATTER ISCHEMIC DISEASE. Electronically signed by: Raghu Gutierrez M.D. Ct Cervical Spine Wo Contrast Result Date: 03/19/2019 Narrative: CT CERVICAL SPINE WO CONTRAST HISTORY: Cervical pain status post fall TECHNIQUE: Serial axial images of the cervical spine with reconstructed coronal and sagittal views obtained. COMPARISON: Cervical spine CT 09/29/2018 FINDINGS: There is no acute cervical spine fracture or dislocation. There is mild C5-C6 and moderate C6-C7 disc space narrowing. There is a grade 1 anterior spondylolisthesis of C3 relative to C4 and a grade 1 posterior spondylolisthesis of C5 relative to C6 again noted. There are degenerative endplate spurs at multiple levels. There is also multilevel facet and uncovertebral joint osteoarthritis. Overall no significant central canal stenosis is identified. Is mild neural foraminal stenosis on the left at C4-C5, mild left and moderate right neural foraminal stenosis at C5-C6 and mild left neural foraminal stenosis at C6-C7. Impression: NO ACUTE CERVICAL SPINE FRACTURE OR DISLOCATION WITH MULTILEVEL OSTEOARTHRITIS OF THE CERVICAL SPINE. Electronically signed by: Raghu Gutierrez M.D. ASSESSMENT AND PLAN: 1. Fall Suspect due to chronic bilateral lower extremity weakness due to familial spastic paraplegia. Patient denies loss of consciousness. Patient states her bilateral lower extremity weakness is progressively getting worse over past few months. Currently patient denies any pain anywhere. No acute cervical spine fracture or dislocation on CT C-spine. No acute intracranial abnormality on CT head Patient needs physical therapy. PT/OT is consulted. Likely patient will need placement due to recurrent fall. Neurology evaluation. 2. Hypokalemia Potassium is repleted. Repeat BMP in p.m.. Continue potassium supplement. Monitor BMP closely. Telemetry monitoring 3. History of paroxysmal atrial fibrillation Currently patient is in sinus rhythm Patient is maintained on Plavix, verapamil and flecainide. Patient follows up with . Patient is not on anticoagulation likely due to risk of fall. 4. CATY on CPAP Continue with nocturnal CPAP 5. Hypercalcemia Serum calcium 11.8. Check ionized calcium. Check PTH, vitamin-D level. Hold home calcium and vitamin-D supplement. Monitor serum calcium closely 6. Diabetes type 2 Hold oral medications. Insulin sliding scale. Monitor blood sugar closely. 7. Chronic bilateral lower extremity venous stasis dermatitis Patient states she has bilateral lower extremity redness for past 7-8 months. 8. Chronic bilateral lower extremity lymphedema Continue with diuresis. Leg elevation. 9. DVT/GI prophylaxis Full code Estimated Length Of Stay: More than 2 midnight MDM: Moderate complexity I Doreen Quintero MD Internal Medicine - Hospitalist [facility] - Adult Hospitalist Service CC: Theresa Camargo MD Voice recognition software [employer] Direct was used dictate and transcribe this document. Sole Molding Machine Operator variances may occur. Despite proofreading, typographical errors may occur. documented in this encounter Consult Notes * [place], DO - 03/20/2019 12:40 PM CDTAssociated Order(s): IP CONSULT TO NEUROLOGY NEUROLOGY CONSULTATION Patient ID: Perla Leon is a 78 y.o. female This consultation is requested by Doreen Quintero MD for familial spastic paraplegia The primary care physician is Theresa Camargo MD History of Present Illness: Per ED notes... Perla Leon is a 78 y.o. female with a h.o anemia, hypokalemia, breast CA, asthma, A-fib, CAD, Familial spastic paraplegia, DM, TIA, lymphatic edema, HLD, HTN and pneumonia presenting to the ED forevaluation following 2 falls that occurred this morning. The patient reports she was walking with her walker this morning when she became dizzy and fell. Patient states she has been having episodes of dizziness for years. Patient's son is at bedside and assists with the HPI. He states the Fire Department had to come to the patients [place] two times this morning due to falls and they advised her to come to the ED for further evaluation after the second episode. Patient denies hip pain, chest ruben n, SOB or LOC. Patient reports she also has BLE weakness and difficulty walking recently. Patient normally uses a walker. Patient also notes BLE edema. Per patients son she does not elevate her legs,use her compression socks or take her lasixs are prescribed. She has had the condition of familial spastic paraplegia for 40 years, her father also had it. Past Medical History: Diagnosis Date ??? Anemia Anemia ??? Asthma Asthma ??? [...] ??? Hyperlipidemia Hyperlipidemia ??? Hypertension Hypertension ??? Osteoarthritis Osteoarthritis ??? Pneumonia Past Surgical History: Procedure Laterality Date ??? BREAST SURGERY ??? CHOLECYSTECTOMY 1997 Cholecystectomy ??? HERNIA REPAIR [...] 1980 Hysterectomy, total abdominal, BSO Social History Socioeconomic History ??? Marital status: Spouse name: Not on file ??? Number of children: Not on file ??? Years of education: Not on file ??? Highest education level: Not on file Occupational History ??? Not on file Social Needs ??? Financial resource strain: Not on file ??? Food insecurity: Worry: Not on file Inability: Not on file ??? Transportation needs: Medical: Not on file Non-medical: Not on file Tobacco Use ??? Smoking status: Never Smoker ??? Smokeless tobacco: Never Used Substance and Sexual Activity ??? Alcohol use: No ??? Drug use: No ??? Sexual activity: Defer control/protection: Post-menopausal Lifestyle ??? Physical activity: Days per week: [...] file Social History Narrative Lives at home. Family History Problem Relation Age of Onset ??? Breast cancer Mother Cancer, breast; /Cancer -breast; ??? Heart failure Father Congestive heart failure; ??? Hypertension Brother Hypertension; ??? Hypertension Brother Hypertension; No current facility-administered medications on file prior to encounter. Current Outpatient Medications on File Prior to Encounter Medication Sig Dispense Refill ??? amitriptyline (ELAVIL) 50 mg tablet Take 50 mg by mouth daily with dinner ??? artificial tears (SYSTANE) 0.3 % gel Apply 1 drop to both eyes nightly as needed ??? bromfenac 0.07 % drops Administer 1 drop into affected eye(s) ??? mirabegron ER (MYRBETRIQ) 25 mg tablet extended release 24 hr 25 mg daily ??? albuterol HFA (PROAIR HFA) 90 mcg/actuation inhaler inhale 2 puff by inhalation route every 4 -6 hours as needed 0 Inhaler 0 ??? anastrozole (ARIMIDEX) 1 mg tablet Take 1 mg by mouth nightly. ??? artificial tears (SYSTANE GEL) 0.3 % gel prn 0 0 ??? aspirin (ASPIRIN LOW DOSE) 81 mg tablet take 1 tablet by oral route every day 0 0 ??? clopidogrel (PLAVIX) 75 mg tablet take [...] 1 ??? flecainide (TAMBOCOR) 50 mg tablet take 1 tablet by oral route every 12 hours 0 0 ??? furosemide (LASIX) 40 mg tablet Take 1 tablet (40 mg total) by mouth daily. (Patient taking differently: Take 60 mg by mouth daily ) ??? latanoprost (XALATAN) 0.005 % ophthalmic solution instill 1 drop by ophthalmic route every day into affected eye(s) in the evening 0 0 ??? levothyroxine (SYNTHROID) 25 mcg tablet Take 25 mcg by mouth animal rehabilitator before breakfast ??? menthol-zinc oxide (CALMOSEPTINE) 0.44-20.6 % ointment PRN 0 0 ??? metOLazone (ZAROXOLYN) 2.5 mg tablet Take 1 tablet (2.5 mg total) by mouth 2 (two) times a week(Patient taking differently: Take 2.5 mg by mouth 2 (two) times a week ) 30 tablet 1 ??? multivitamin (ONCE DAILY) tablet tablet take 1 tablet by oral route every day with food 0 0 ??? peg 400-propylene glycol (SYSTANE ULTRA) 0.4-0.3 % drops PRN (Patient taking differently: Administer 2 drops into both eyes as needed (dry eyes). ) 0 0 ??? potassium chloride ER (KLOR-CON) 10 mEq CR tablet Take 4 tablet/capsule (40 mEq total) by mouthdaily 30 tablet 3 ??? psyllium, aspartame, SF (METAMUCIL SF) 3.4 [...] by oral route every day 0 0 Current Facility-Administered Medications: ??? acetaminophen (TYLENOL) tablet 650 mg, 650 mg, oral, Q4H PRN, Doreen Quintero MD, 650 mg at 03/20/19 0618 ??? amitriptyline (ELAVIL) tablet 50 mg, 50 mg, oral, Daily with dinner, Doreen Quintero MD, 50 mg at 03/19/191823 ??? anastrozole (ARIMIDEX) tablet 1 mg, 1 mg, oral, Nightly, Doreen Quintero MD, 1 mg at 03/19/192212 ??? aspirin enteric coated tablet 81 mg, 81 mg, oral, Daily, Doreen Quintero MD, 81 mg at 03/20/19823 ??? bisacodyl EC (DULCOLAX EC) tablet 10 mg, 10 mg, oral, Daily PRN, Doreen Quintero MD ??? clopidogrel (PLAVIX) tablet 75 mg, 75 mg, oral, Daily, Doreen Quintero MD, 75 mg at 03/20/19823 ??? cyanocobalamin (Vitamin B-12) tablet 1,000 mcg, 1,000 mcg, oral, Daily, Doreen Quintero MD, 1,000 mcg at 03/20/19823 ??? dextrose gel in packet 15 g, 15 g, oral, Q15 Min PRN OR dextrose (D10W) 10% bolus 250 mL, 250 mL, intravenous, Q15 Min PRN, Doreen Quintero MD ??? enoxaparin (LOVENOX) syringe 40 mg, 40 mg, subcutaneous, Daily-2100, Doreen Quintero MD, 40 mg at 03/19/192213 ??? famotidine (PEPCID) tablet 20 mg, 20 mg, oral, Daily, Gay Escudero MD, 20 mg at 03/20/19 0824 ??? flecainide (TAMBOCOR) tablet 50 mg, 50 mg, oral, BID, Doreen Quintero MD, 50 mg at 03/20/19 0814 ??? furosemide (LASIX) tablet 60 mg, 60 mg, oral, Daily, Doreen Quintero MD, 60 mg at 03/20/19 0824 ??? glucagon injection 1 mg, 1 mg, intramuscular, Q30 Min PRN, Doreen Quintero MD ??? insulin lispro (HumaLOG) pen injection 1-3 Units, 1-3 Units, subcutaneous, Nightly, DigantkumarJ. Leon MD, 2 Units at 03/19/19 2207 ??? insulin lispro (HumaLOG) pen injection 1-5 Units, 1-5 Units, subcutaneous, TID with meals, Doreen Quintero MD, 2 Units at 03/20/19 1228 ??? latanoprost (XALATAN) 0.005 % ophthalmic solution 1 drop, 1 drop, each eye, Nightly, Doreen Quintero MD, 1 drop at 03/19/19 2218 ??? levothyroxine (SYNTHROID) tablet 25 mcg, 25 mcg, oral, Daily - 0600, Doreen Quintero MD, 25 mcg at 03/20/19 0617 ??? magnesium hydroxide (MILK OF MAGNESIA) 80 mg/mL (33.3 mg/mL as elemental magnesium) oral suspension 30 mL, 30 mL, oral, Daily PRN, Doreen Quintero MD ??? metOLazone (ZAROXOLYN) tablet 2.5 mg, 2.5 mg, oral, Once per day on Fri, Doreen Quintero MD, 2.5 mg at 03/19/19 1824 ??? mineral oil (FLEET MINERAL OIL) enema 1 enema, 1 enema, rectal, Daily PRN, Doreen Quintero MD ??? multivit keohvsrq-goja-MY-calcium (THERA-M) tablet 1 tablet, 1 tablet, oral, Daily, Gay Escudero MD, 1 tablet at 03/20/19 0824 ??? ondansetron ODT (ZOFRAN-ODT) disintegrating tablet 4 mg, 4 mg, oral, Q6H PRN OR ondansetron(ZOFRAN) injection 4 mg, 4 mg, intravenous, Q6H PRN, Doreen Quintero MD ??? oxybutynin XL (DITROPAN-XL) extended release tablet 10 mg, 10 mg, oral, Daily, Gay Escudero MD, 10 mg at 03/20/19 0814 ??? polyvinyl alcohol (LIQUIFILM TEARS) 1.4 % ophthalmic solution 1 drop, 1 drop, each eye, QID PRN, Gay Escudero MD ??? potassium chloride ER (KLOR-CON) extended release tablet 40 mEq, 40 mEq, oral, Daily, Doreen Quintero MD, 40 mEq at 03/20/19 0823 ??? potassium chloride ER (KLOR-CON) extended release tablet 40 mEq, 40 mEq, oral, Once, Doreen Quintero MD ??? potassium, sodium phosphates (PHOS-NAK) 280-160-250 mg packet 1 packet, 1 packet, oral, TID, Doreen Quintero MD, 1 packet at 03/20/19 0920 ??? rosuvastatin (CRESTOR) tablet 10 mg, 10 mg, oral, Daily, Doreen Quintero MD, 10 mg at 03/20/19 0813 ??? verapamil SR (CALAN SR) extended release tablet 240 mg, 240 mg, oral, Daily, Gay Escudero MD, 240 mg at 03/20/19 0824 Allergies Allergen Reactions ??? Donepezil Other (See comments) Reaction: unknown reaction, , , Reaction: yeast infection, ??? Black Pepper ??? Diltiazem Edema, Diarrhea and Other (See comments) Reaction: edema, , Reaction: diarrhea, , , Reaction: ankles swell, ??? Fluticasone Other (See comments) Reaction: colon problems, ??? Metformin Diarrhea Reaction: diarrhea, , ??? Salmeterol Other (See comments) Reaction: colon problems, Review of Systems Constitutional: Negative for fever, fatigue and unexpected weight change. HENT: Negative for ear discharge, ear pain and hearing loss. Eyes: Negative for pain, itching and visual disturbance. Respiratory: Negative for apnea, cough, chest tightness and shortness of breath. Cardiovascular: Negative for chest pain, palpitations and there is some leg swelling. Gastrointestinal: Negative for diarrhea, nausea and vomiting. Genitourinary: Negative for dysuria, flank pain and hematuria. Musculoskeletal: Negative for myalgias, arthralgias and back pain. Neurological: Positive for weakness, but no numbness and headaches. Psychiatric/Behavioral: Negative for agitation, confusion and hallucinations. Physical Exam Constitutional: The patient appears well-developed and well-nourished. Vitals reviewed. Head/Neck: Normocephalic and atraumatic, normal ROM. ENT: Sclera clear, no drainage of nose, ears, oral cavity normal mucosa Cardiovascular: Normal rate and regular rhythm. Respiratory: Effort normal. No respiratory distress. GI: Abdomen is soft, there is no rebound. Musculoskeletal: Normal range of motion, gait and station does not occur. Skin: Skin is warm and dry without obvious lesions. Psychiatric: Lucid, calm, no agitation or delusional behavior Neurological Exam: Mental Status: Alert and oriented times three, speech is fluent and insight is good, memory is decent, good attention and concentration, normal fund of knowledge Sensory: A sensory exam is non focal for temperature and vibration bilaterally Cranial Nerves: PERRL, EOMI, VF's full, vessels normal, face symmetric for sensation and strength, hearing is intact, tongue and oropharynx are symmetric and in the midline, shoulder shrug is intact Motor: 5/5 MRC strength upper & lower extremities are 3/5, tone is equal, no pronator drift Reflexes: Symmetric in the upper and lower extremities are brisk at the patellas but absent Achilles, toes are mute Cerebellar: No ataxia with finger to nose or rapid alternating movements Laboratory Data: Recent Results (from the past 24 hour(s)) POCT glucose Collection Time: 03/19/19 4:46 PM Result Value Ref Range Glucose, POC 225 (H) 71 - 98 mg/dL Basic metabolic panel Collection Time: 03/19/19 6:56 PM Result Value Ref Range Sodium 139 135 - 145 mmol/L Potassium, pl 3.4 3.3 - 4.9 mmol/L Chloride 98 97 - 110 mmol/L CO2 33 (H) 22 - 32 mmol/L Anion gap 8 2 - 15 mmol/L BUN 20 8 - 25 mg/dL Creatinine 0.75 0.60 - 1.10 mg/dL Glucose 234 (H) 70 - 199 mg/dL Calcium 10.8 (H) 8.5 - 10.3 mg/dL Calcium, ionized, whole blood Collection Time: 03/19/19 6:56 PM Result Value Ref Range Ca, ionized, bld 5.46 (H) 4.61 - 5.17 mg/dL PTH Collection Time: 03/19/19 6:56 PM Result Value Ref Range PTH 41 15 - 65 pg/mL Vitamin D 25 hydroxy Collection Time: 03/19/19 6:56 PM Result Value Ref Range Vitamin D, 25-hydroxy 38 30 - 80 ng/mL eGFR Collection Time: 03/19/19 6:56 PM Result Value Ref Range GFR 75 mL/min/1.73 m2 POCT glucose Collection Time: 03/19/19 9:54 PM Result Value Ref Range Glucose, POC 203 (H) 71 - 98 mg/dL POCT glucose Collection Time: 03/20/19 2:40 AM Result Value Ref Range Glucose, POC 158 (H) 71 - 98 mg/dL CBC with auto differential Collection Time: 03/20/19 3:36 AM Result Value Ref Range WBC 10.8 (H) 3.8 - 9.9 K/cumm Hgb 12.2 11.9 - 15.5 g/dL Hct 37.8 35.6 - 45.5 % Plt 333 150 - 400 K/cumm MPV 10.6 9.1 - 12.3 fL RBC 4.49 3.90 - 5.20 M/cumm MCV 84.2 81.3 - 96.4 fL MCH 27.2 27.1 - 33.3 pg MCHC 32.3 32.3 - 35.7 g/dL RDW CV 16.0 (H) 11.1 - 14.9 % RDW SD 48.8 (H) 35.7 - 48.1 fL NRBC abs 0.00 0.00 - 0.01 K/cumm Renal function panel Collection Time: 03/20/19 3:36 AM Result Value Ref Range Sodium 140 135 - 145 mmol/L Potassium, pl 2.9 (Critical) 3.3 - 4.9 mmol/L Chloride 100 97 - 110 mmol/L CO2 29 22 - 32 mmol/L Anion gap 11 2 - 15 mmol/L BUN 17 8 - 25 mg/dL Creatinine 0.55 (L) 0.60 - 1.10 mg/dL Glucose 174 70 - 199 mg/dL Calcium 10.4 (H) 8.5 - 10.3 mg/dL Phosphorus, pl 1.9 (L) 2.3 - 4.5 mg/dL Albumin 3.5 3.5 - 5.0 g/dL Magnesium Collection Time: 03/20/19 3:36 AM Result Value Ref Range Magnesium 2.0 1.6 - 2.4 mg/dL Differential, auto Collection Time: 03/20/19 3:36 AM Result Value Ref Range Neutrophil abs 7.7 (H) 1.7 - 6.5 K/cumm Imm gran abs 0.0 0.0 - 0.1 K/cumm Lymphocyte abs 1.5 0.8 - 3.3 K/cumm Monocyte abs 1.3 (H) 0.2 - 0.8 K/cumm Eosinophil abs 0.3 0.0 - 0.5 K/cumm Basophil abs 0.0 0.0 - 0.1 K/cumm Neutrophil pct 71.0 % Imm gran pct 0.5 % Lymphocyte pct 13.8 % Monocyte pct 11.9 % Eosinophil pct 2.5 % Basophil pct 0.3 % eGFR Collection Time: 03/20/19 3:36 AM Result Value Ref Range GFR 89 mL/min/1.73 m2 POCT glucose Collection Time: 03/20/19 8:07 AM Result Value Ref Range Glucose, POC 145 (H) 71 - 98 mg/dL POCT glucose Collection Time: 03/20/19 12:10 PM Result Value Ref Range Glucose, POC 191 (H) 71 - 98 mg/dL Potassium Collection Time: 03/20/19 2:25 PM Result Value Ref Range Potassium, pl 2.9 (Critical) 3.3 - 4.9 mmol/L Data Reviewed: CT brain images reviewed personally, no acute lesions noted, cervical spine is performed and reviewed, no fracture IMPRESSIONS & RECOMMENDATIONS: Familial spastic paraplegia, decompensated currently with multiple falls-PT eval and treat, may need acute rehab admission Multiple falls Minor head injury, initial encounter Hypokalemia [place] D.O. , Neurology & Neurophysiology Office: documented in this encounter Nursing Notes * Manish Chavez RN - 03/22/2019 6:22 PM CST Discharge instructions given to and folder for [facility] given to daughter. Patient is discharged per w/c taken to family car and family is taking patient to [facility]. Report rajani Dias RN SERVICE OFFICER documented in this encounter ED Notes * Jj Jewell MD - 03/19/2019 9:42 AM CDT HPI Chief Complaint Patient presents with ??? Fall ??? Weakness - Generalized 9:45 AM 03/19/2019 Perla Leon is a 78 y.o. female with a h.o anemia, hypokalemia, breast CA, asthma, A-fib, CAD, Familial spastic paraplegia, DM, TIA, lymphatic edema, HLD, HTN and pneumonia presenting to the ED forevaluation following 2 falls that occurred this morning. The patient reports she was walking with her walker this morning when she became dizzy and fell. Patient states she has been having episodes of dizziness for years. Patient's son is at bedside and assists with the HPI. He states the Fire Department had to come to the patients house two times this morning due to falls and they advised her to come to the ED for further evaluation after the second episode. Patient denies hip pain, chest ruben n, SOB or LOC. Patient reports she also has BLE weakness and difficulty walking recently. Patient normally uses a walker. Patient also notes BLE edema. Per patients son she does not elevate her legs,use her compression socks or take her lasixs are prescribed. He also notes since her fall last weekshe has been holding her head to the R for comfort and cannot straighten her neck secondary to pain. Upon chart review patient was admitted 03/05/2019 - 03/08/2019 to [facility] for peripheral edema and generalized weakness. Chest XR completed at this time showed no active disease. PCP; Dr. Theresa Camargo at [facility] Cardiology; Dr. Valencia Neurology; Dr. Ross Patient History Past Medical History: Diagnosis Date ??? Anemia Anemia ??? Asthma Asthma ??? [...] ??? Hyperlipidemia Hyperlipidemia ??? Hypertension Hypertension ??? Osteoarthritis Osteoarthritis ??? Pneumonia Past Surgical History: Procedure Laterality Date ??? BREAST SURGERY ??? CHOLECYSTECTOMY 1998 Cholecystectomy ??? HERNIA REPAIR [...] Systems Review of Systems Constitutional: Negative for chills, fatigue and fever. HENT: Negative for congestion, ear pain, rhinorrhea, sneezing and sore throat. Respiratory: Negative for cough, shortness of breath and wheezing. Cardiovascular: Negative for chest pain and palpitations. Gastrointestinal: Negative for abdominal pain, constipation, diarrhea, nausea and vomiting. Genitourinary: Negative for dysuria and frequency. Musculoskeletal: Positive for neck pain. Negative for arthralgias, back pain and myalgias. Skin: Negative for rash and wound. Neurological: Positive for dizziness and weakness (lower extremity). Negative for syncope, speech difficulty, numbness and headaches. All other systems reviewed and are negative. All systems reviewed and are neg or non contributory for this patients presentation today other than as stated in the HPI . Physical Exam ED Triage Vitals [03/19/19928] Temp Pulse Resp BP SpO2 36.5 ??C (97.7 ??F) 86 23 148/69 92 % Temp src Heart Rate Source Patient Position BP Location FiO2 (%) Oral -- -- -- -- Physical Exam Vitals signs and nursing note reviewed. Constitutional: Appearance: Normal appearance. HENT: Head: Normocephalic. Nose: Nose normal. Mouth/Throat: Mouth: Mucous membranes are moist. Eyes: Extraocular Movements: Extraocular movements intact. Cardiovascular: Rate and Rhythm: Normal rate. Pulmonary: Effort: Pulmonary effort is normal. Breath sounds: Normal breath sounds. Abdominal: Palpations: Abdomen is soft. Neurological: Mental Status: She is alert. Vitals: 03/19/19 0929 03/19/19932 BP: 148/69 Pulse: 86 Resp: 23 Temp: 36.5 ??C (97.7 ??F) TempSrc: Oral SpO2: 92% 94% Weight: 83 kg (182 lb 15.7 oz) Height: 165.1 cm (5' 5 ) Labs Reviewed COMPREHENSIVE METABOLIC PANEL - Abnormal Result Value Sodium 136 Potassium, pl 2.5 (*) Chloride 93 (*) CO2 32 Anion gap 11 BUN 23 Creatinine 0.67 Glucose 177 Calcium 11.8 (*) Bilirubin, total 0.5 Protein, pl 6.4 (*) Albumin 4.1 Alk phos 104 ALT 30 AST 29 CBC WITH AUTO DIFFERENTIAL - Abnormal WBC 11.8 (*) Hgb 13.4 Hct 40.0 Plt 378 MPV 10.8 RBC 4.90 MCV 81.6 MCH 27.3 MCHC 33.5 RDW CV 15.8 (*) RDW SD 46.3 NRBC abs 0.00 DIFFERENTIAL AUTO - Abnormal Neutrophil abs 9.0 (*) Imm gran abs 0.1 Lymphocyte abs 1.4 Monocyte abs 1.2 (*) Eosinophil abs 0.2 Basophil abs 0.0 Neutrophil pct 75.8 Imm gran pct 0.5 Lymphocyte pct 11.5 Monocyte pct 10.5 Eosinophil pct 1.3 Basophil pct 0.4 PROTIME-INR PT 12.5 INR 1.11 PRO B-TYPE NATRIURETIC PEPTIDE NT-proBNP [address] Head WO Contrast Final Result 1. NO ACUTE INTRACRANIAL ABNORMALITY. 2. MODERATE SMALL VESSEL WHITE MATTER ISCHEMIC DISEASE. Electronically signed by: Raghu Gutierrez M.D. CT Cervical Spine WO Contrast Final Result NO ACUTE CERVICAL SPINE FRACTURE OR DISLOCATION WITH MULTILEVEL OSTEOARTHRITIS OF THE CERVICAL SPINE. Electronically signed by: Raghu Gutierrez M.D. Procedures MDM Number of Diagnoses or Management Options Amount and/or Complexity of Data Reviewed Clinical lab tests: reviewed and ordered Tests in the radiology section of CPT??: ordered and reviewed ED Course as of Mar 19 1153 Time: 03/19 1054 Comment: Informed patient and family member of plan for admission and patient is agreeable. Patientwould like to be [facility] to [facility]. By: Moni Benitez Time: 03/19 1119 Comment: Spoke with Dr. Escudero (Hospitalist) who agrees to accept patient. By: Moni Benitez Clinical Impression: Multiple falls Minor head injury, initial encounter Hypokalemia I Dr. Jj Jewell MD , electronically signed this note at 9:42 AM on 03/19/2019. I have personally performed the services described in the documentation, reviewed the documentation, as recorded bythe scribe in my presence, and it accurately and completely records my words and actions.This note was prepared by Moni Benitez, acting as a Scribe Jj Jewell MD 03/19/19 5517 Jj Jewell MD 03/19/19 1153 * Mehreen Lundberg RN - 03/19/2019 9:28 AM CDT 78 yr old female presents to the ED via [facility] with her spouse with C/O two falls this AM. Pt spouse reports pt hasn't been her normal self yesterday or today stating that pt has been increasinglytired and unable to stand on her own yesterday. Pt also had a fall last week that she has a large bruise in healing stage over her left forehead. Pt awake and alert upon arrival, answers questions appropriately. Pt spouse reports pt LKN was yesterday at 0800. * Rosi [facility] RN - 03/19/2019 9:19 AM CDT Bed: ED01 Expected date: Expected time: Means of arrival: Comments: [id number] Rosi [facility] RN 03/19/19 0919 documented in this encounter Miscellaneous Notes * Plan of Care - Manish Chavez RN - 03/22/2019 3:58 PM CST Problem: Health Behavior: Goal: Understanding of discharge needs will improve Outcome: Progressing Goals: Clinical Goals for the Shift: Stable abs, free from fall Summary: No injury, no request for pain meds. Transferred to chair with assist. Of physical therapist. Ate well. Voided per bsc and has also stress incontinence. Waiting for discharge to rehab facility at [facility], where she will be transferred today. at bedside. SERVICE OFFICER * Plan of Care - Kierra Turner MSW - 03/22/2019 3:29 PM CST [facility] Doretha from Admissions. Pt's daughter Nancy was updated on dc plans. Pt spouse will transport by car. Sw notified Kierra NUNES [facility]/Charge of dc plans. If this is the last note consider it to be the dc summary. SERVICE OFFICER * Plan of Care - Darnell Gutiérrez PTA - 03/22/2019 2:56 PM CST Problem: PT Misc Goal: STG - Misc 1 Description Pt to be SBA/min with all bed mobility to go home (sleeps lift chair at home) Outcome: Progressing Note: Patient required mod assist to EOB Goal: STG - Misc 2 Description Pt to be SBA with all transfers to go home with spouse Outcome: Progressing Note: Patient required min assist for transfers Goal: STG - Misc 3 Description Pt to amb with ww 15' x 1 SBA in order to go get around at home with inc safety. Outcome: Progressing Note: Patient ambulated 20' x 2 with w/w min assist. Recommend SNF for further therapy. SERVICE OFFICER * Plan of Care - Connie Britton RN - 03/21/2019 10:38 AM CST Goals: Clinical Goals for the Shift: stable labs and free from falls Problem: Skin Integrity: Goal: Risk for impaired skin integrity will decrease Outcome: Progressing Goal: Ability to demonstrate warm and dry skin will improve Outcome: Progressing Goal: Circulation will improve to fullest extent possible Outcome: Progressing Summary: Continue to monitor blood sugars. Pts. Blood sugar is now 3.3. Pt. Continues on telemetry.Awaiting to see SERVICE OFFICER * Plan of Care - Christine Hameed RN - 03/21/2019 6:04 AM CST Problem: Health Behavior: Goal: Understanding of discharge needs will improve Outcome: Progressing Problem: Lack of Knowledge: Goal: Ability to state ways to decrease the risk of falls will improve Outcome: Progressing Problem: Safety: Goal: Will remain free from injury from falls Outcome: Progressing Problem: Activity: Goal: Mobility will improve Outcome: Progressing Problem: Nutritional: Goal: [...] Will remain free from falls Outcome: Progressing Goals: Clinical Goals for the Shift: stable labs and free from falls Summary: Patient resting per bed. Purewick in place to prevent moisture and decrease risk of skin breakdown. Patients' potassium has continued to be critically low. Denies pain. Up with 1-2. Call light within reach. Bed alarm activated for safety. Pt free from fall this shift. SERVICE OFFICER * Plan of Care - Jose Willis RN - 03/20/2019 8:27 AM CDT Goals: Clinical Goals for the Shift: vss, free from falls and injury, rest, stable labs and blood glucose Summary: Pt alert and oriented. In bed resting during rounds. Tylenol given for head ache. Oxygen per nasal cannula at 1.5 L. Elevated potassium, Dr notified and oral potassium given. Vital signs stable * ED Procedure Note - Jj Jewell MD - 03/19/2019 11:51 AM CDTAssociated Order(s): ECG 12 lead Procedure ECG 12 lead Date/Time: 03/19/2019 11:51 AM Performed by: Jj Jewell MD Authorized by: Jj eJwell MD Rate: ECG rate: 85 ECG rate assessment: normal Rhythm: Rhythm: sinus rhythm Ectopy: Ectopy: none QRS: QRS axis: Normal Conduction: Conduction: normal ST segments: ST segments: Normal T waves: T waves: normal Q waves: Q waves: I Interpretation: Interpretation: normal Jj Jewell MD 03/19/19 1151 documented in this encounter Plan of Treatment Not on file documented as of this encounter Procedures Procedure Name Priority Date/Time Associated Diagnosis Comments POCT GLUCOSE DEVICE Routine 03/22/2019 5 :00 PM LOAN SERVICE OFFICER POCT GLUCOSE DEVICE Routine 03/22/2019 1 1:36 AM LOAN SERVICE OFFICER POCT GLUCOSE DEVICE Routine 03/22/2019 8 :05 AM LOAN SERVICE OFFICER EGFR Routine 03/22/2019 5:44 AM LOAN SERVICE OFFICER RENAL FUNCTION PANEL Routine 03/22/2019 5:44 AM LOAN SERVICE OFFICER POCT GLUCOSE DEVICE Routine 03/22/2019 2 :33 AM LOAN SERVICE OFFICER POCT GLUCOSE DEVICE Routine 03/21/2019 9 :28 PM LOAN SERVICE OFFICER POCT GLUCOSE DEVICE Routine 03/21/2019 4 :36 PM LOAN SERVICE OFFICER POTASSIUM LEVEL Routine 03/21/2019 2:18 PM LOAN SERVICE OFFICER POCT GLUCOSE DEVICE Routine 03/21/2019 1 1:53 AM LOAN SERVICE OFFICER POTASSIUM LEVEL Routine 03/21/2019 8:38 AM LOAN SERVICE OFFICER POCT GLUCOSE DEVICE Routine 03/21/2019 7 :46 AM LOAN SERVICE OFFICER POCT GLUCOSE DEVICE Routine 03/21/2019 3 :32 AM LOAN SERVICE OFFICER EGFR Routine 03/21/2019 3:28 AM LOAN SERVICE OFFICER RENAL FUNCTION PANEL Routine 03/21/2019 3:28 AM LOAN SERVICE OFFICER POTASSIUM LEVEL Timed 03/21/2019 12:13 AM CDT MAGNESIUM Routine 03/21/2019 12:08 AM CDT POCT GLUCOSE DEVICE Routine 03/20/2019 9 :38 PM CDT POTASSIUM LEVEL Timed 03/20/2019 7:37 PM CDT POTASSIUM LEVEL Routine 03/20/2019 6:15 PM CDT POCT GLUCOSE DEVICE Routine 03/20/2019 4 :38 PM CDT POTASSIUM LEVEL Timed 03/20/2019 2:25 PM CDT POCT GLUCOSE DEVICE Routine 03/20/2019 1 2:10 PM CDT POCT GLUCOSE DEVICE Routine 03/20/2019 8 :07 AM CDT EGFR Routine 03/20/2019 3:36 AM CDT DIFFERENTIAL AUTO Routine 03/20/2019 3:3 6 AM CDT CBC WITH AUTO DIFFERENTIAL Routine 03/20/2019 3:36 AM CDT MAGNESIUM Routine 03/20/2019 3:36 AM CDT RENAL FUNCTION PANEL Routine 03/20/2019 3:36 AM CDT POCT GLUCOSE DEVICE Routine 03/20/2019 2 :40 AM CDT POCT GLUCOSE DEVICE Routine 03/19/2019 9 :54 PM CDT CALCIUM,IONIZED, WHOLE BLOOD Timed 03/19/2019 6:56 PM CDT EGFR Timed 03/19/2019 6:56 PM CDT VITAMIN D 25 HYDROXY Timed 03/19/2019 6:56 PM CDT PTH Timed 03/19/2019 6:56 PM CDT BASIC METABOLIC PANEL Timed 03/19/2019 6:56 PM CDT POCT GLUCOSE DEVICE Routine 03/19/2019 4 :[address] CERVICAL SPINE WO CONTRAST ED 03/19/2019 10:[address] HEAD WO CONTRAST ED 03/19/2019 1 0:39 AM CDT EGFR STAT 03/19/2019 10:13 AM CDT DIFFERENTIAL AUTO STAT 03/19/2019 10: 13 AM CDT PRO B-TYPE NATRIURETIC PEPTIDE STAT 03/19/2019 10:13 AM CDT CBC WITH AUTO DIFFERENTIAL STAT 03/19/2019 10:13 AM CDT PROTIME-INR STAT 03/19/2019 10:13 AM CDT COMPREHENSIVE METABOLIC PANEL STAT 03/19/2019 10:13 AM CDT ECG 12-LEAD STAT 03/19/2019 10:00 AM CDT documented in this encounter Results * (ABNORMAL) POCT glucose (03/22/2019 5:00 PM LOAN SERVICE OFFICER) Glucose, POC 186(H) 71 - 98 mg/dL [facility] ([place]) Blood specimen (specimen) 03/22/2019 5:00 PM LOAN SERVICE OFFICER 03/22/2019 5:00 PM LOAN SERVICE OFFICER us Doreen Quintero MD LAB POCT ORDERABLES - DE VICE Final Result [facility] ([place]) [address] [place] [address] * (ABNORMAL) POCT glucose (03/22/2019 11:36 AM LOAN SERVICE OFFICER) Pathologist [facility] Glucose, POC 182(H) 71 - 98 mg/dL [facility] ([place]) Blood specimen (specimen) 03/22/2019 11:36 AM LOAN SERVICE OFFICER 03/22/2019 11:36 AM LOAN SERVICE OFFICER us Doreen Quintero MD LAB POCT ORDERABLES - DE VICE Final Result [facility] ([place]) [address] [place] [id number] * (ABNORMAL) POCT glucose (03/22/2019 8:05 AM LOAN SERVICE OFFICER) [facility] Glucose, POC 147(H) 71 - 98 mg/dL [facility] ([place]) Blood specimen (specimen) 03/22/2019 8:05 AM LOAN SERVICE OFFICER 03/22/2019 8:05 AM LOAN SERVICE OFFICER us Doreen Quintero MD LAB POCT ORDERABLES - DE VICE Final Result Performing Organization Address City/[facility]/ZIP Co de Phone Number [facility] [address] [place] [address] * eGFR (03/22/2019 5:44 AM LOAN SERVICE OFFICER) Pathologist [facility] eGFR 88 mL/min/1.7 3 m2 [facility] ([place]) Comment: Interpretive Data Reference Interval Normal ?>/= 90 mL/min/1.73m2 Mildly decreased* ? 60 - 89 mL/min/1.73m2 Mildly to moderately decreased ?45 - 59 mL/min/1.73m2 Moderately to severely decreased ??30 - 44 mL/min/1.73m2 Severely decreased ?15 - 29 mL/min/1.73m2 Kidney Failure ?< 15 ??mL/min/1.73m2 *Relative to young adult level If -[place] multiply value by 1.16. Estimated glomerular filtration [...] was last reviewed 2015. Blood specimen (specimen) 03/22/2019 5:44 AM LOAN SERVICE OFFICER 03/22/2019 5:48 AM LOAN SERVICE OFFICER us Doreen Quintero MD LAB BLOOD ORDERABLES Fin al Result [facility] ([place]) 1 [facility] [place] [address] * (ABNORMAL) Renal function panel (03/22/2019 5:44 AM LOAN SERVICE OFFICER) Sodium 139 135 - 145 mmol/L [facility] ([facility] Potassium, pl 3.1(L) 3.3 - 4.9 mmol/L [facility] ([place]) Chloride 100 97 - 110 mmol/L [facility] ([place]) CO2 27 22 - 32 mmol/L [facility] ([place]) Anion gap 12 2 - 15 mmol/L [facility] ([place]) BUN 13 8 - 25 mg/dL [facility] ([place]) Creatinine 0.57(L) 0.60 - 1.10 mg/dL [facility] ([place]) Glucose 159 70 - 199 mg/dL [facility] ([place]) [...] - 4.5 mg/dL [facility] ([place]) Albumin 3.0(L) 3.5 - 5.0 g/dL [facility] ([place]) Blood specimen (specimen) 03/22/2019 5:44 AM LOAN SERVICE OFFICER 03/22/2019 5:48 AM LOAN SERVICE OFFICER us Doreen Quintero MD LAB BLOOD ORDERABLES Fin al Result Performing Organization Address City/[facility]/ZIP Co de Phone Number [facility] ([place]) 1 [facility] [email or web address] [address] * (ABNORMAL) POCT glucose (03/22/2019 2:33 AM LOAN SERVICE OFFICER) Glucose, POC 149(H) 71 - 98 mg/dL [facility] ([facility] Blood specimen (specimen) 03/22/2019 2:33 AM LOAN SERVICE OFFICER 03/22/2019 2:33 AM LOAN SERVICE OFFICER us Doreen Quintero MD LAB POCT ORDERABLES - DE VICE Final Result [facility] ([place]) 1 [facility] [place] [address] * (ABNORMAL) POCT glucose (03/21/2019 9:28 PM LOAN SERVICE OFFICER) Glucose, POC 230(H) 71 - 98 mg/dL [facility] ([place]) Blood specimen (specimen) 03/21/2019 9:28 PM LOAN SERVICE OFFICER 03/21/2019 9:28 PM LOAN SERVICE OFFICER us Doreen Quintero MD LAB POCT ORDERABLES - DE VICE Final Result Performing Organization Address [facility]/ZIP Co de Phone Number [facility] ([place]) 1 [facility] [place] [address] * (ABNORMAL) POCT glucose (03/21/2019 4:36 PM LOAN SERVICE OFFICER) Glucose, POC 208(H) 71 - 98 mg/dL [facility] ([place]) Blood specimen (specimen) 03/21/2019 4:36 PM LOAN SERVICE OFFICER 03/21/2019 4:36 PM LOAN SERVICE OFFICER us Doreen Quintero MD LAB POCT ORDERABLES - DE VICE Final Result Performing Organization Address [facility] Co de Phone Number [facility] ([place]) 1 [facility] [place] [address] * Potassium (03/21/2019 2:18 PM LOAN SERVICE OFFICER) Potassium, pl 3.3 3.3 - 4.9 mmol/L [facility] ([place]) Blood specimen (specimen) 03/21/2019 2:18 PM LOAN SERVICE OFFICER 03/21/2019 2:21 PM LOAN SERVICE OFFICER us Doreen Quintero MD LAB BLOOD ORDERABLES Fin al Result Performing Organization Address [facility] Co de Phone Number [facility] ([place]) 1 [facility] [place] [address] * (ABNORMAL) POCT glucose (03/21/2019 11:53 AM LOAN SERVICE OFFICER) Glucose, POC 207(H) 71 - 98 mg/dL [facility] ([place]) Blood specimen (specimen) 03/21/2019 11:53 AM LOAN SERVICE OFFICER 03/21/2019 11:53 AM LOAN SERVICE OFFICER us Doreen Quintero MD LAB POCT ORDERABLES - DE VICE Final Result Performing Organization Address City/[facility]/ZIP Co de Phone Number MADDI HOFF (ARABELLA) 1 [facility] [place] [address] * Potassium (03/21/2019 8:38 AM LOAN SERVICE OFFICER) Potassium, pl 3.3 3.3 - 4.9 mmol/L MADDI HOFF (ARABELLA) Blood specimen (specimen) 03/21/2019 8:38 AM LOAN SERVICE OFFICER 03/21/2019 8:41 AM LOAN SERVICE OFFICER us Maria Del Rosario Vences MD LAB BLOOD ORDERABLES Final Resul t MADDI HOFF (RINCON) 1 [facility] [place] [address] * (ABNORMAL) POCT glucose (03/21/2019 7:46 AM LOAN SERVICE OFFICER) Glucose, POC 136(H) 71 - 98 mg/dL MADDI HOFF (RINCON) Blood specimen (specimen) 03/21/2019 7:46 AM LOAN SERVICE OFFICER 03/21/2019 7:46 AM LOAN SERVICE OFFICER us Doreen Quintero MD LAB POCT ORDERABLES - DE VICE Final Result Performing Organization Address City/[facility]/ZIP Co de Phone Number MADDI HOFF (RINCON) 1 [facility] [place] [address] * (ABNORMAL) POCT glucose (03/21/2019 3:32 AM LOAN SERVICE OFFICER) Glucose, POC 148(H) 71 - 98 mg/dL MADDI HOFF (ARABELLA) Blood specimen (specimen) 03/21/2019 3:32 AM LOAN SERVICE OFFICER 03/21/2019 3:32 AM LOAN SERVICE OFFICER us Doreen Quintero MD LAB POCT ORDERABLES - DE VICE Final Result MADDI HOFF (RINCON) 1 [facility] [place] [address] * eGFR (03/21/2019 3:28 AM LOAN SERVICE OFFICER) eGFR 88 mL/min/1.7 3 m2 MADDI [facility] (ARABELLA) Comment: Interpretive Data Reference Interval Normal ?>/= 90 mL/min/1.73m2 Mildly decreased* ? 60 - 89 mL/min/1.73m2 Mildly to moderately decreased ?45 - 59 mL/min/1.73m2 Moderately to severely decreased ??30 - 44 mL/min/1.73m2 Severely decreased ?15 - 29 mL/min/1.73m2 Kidney Failure ?< 15 ??mL/min/1.73m2 *Relative to young adult level If -[place] multiply value by 1.16. Estimated glomerular filtration [...] was last reviewed 2015. Blood specimen (specimen) 03/21/2019 3:28 AM LOAN SERVICE OFFICER 03/21/2019 3:50 AM LOAN SERVICE OFFICER us Doreen Quintero MD LAB BLOOD ORDERABLES Fin al Result MADDI LUIS EDUARDO (RINCON) 1 [facility] [place] [address] * (ABNORMAL) Renal function panel (03/21/2019 3:28 AM LOAN SERVICE OFFICER) Sodium 139 135 - 145 mmol/L M[facility]DI [facility] (ARABELLA) Potassium, pl 2.6(C) 3.3 - 4.9 mmol/L [facility] (ARABELLA) Comment:Critical Result call ed to and read back by elkin hameed [facility], DATE: 2019-03-21 05:08:53 BY: isha alvarez Chloride 99 97 - 110 mmol/L [facility] (AR[place]LLA) CO2 31 22 - 32 mmol/L [facility] ([place]) Anion gap 10 2 - 15 mmol/L [facility] ([place]) BUN 15 8 - 25 mg/dL [facility] ([place]) Creatinine 0.57(L) 0.60 - 1.10 mg/dL [facility] ([place]A) Glucose 171 70 - 199 mg/dL [facility] ([place]LLA) [...] interpretive data was last revised 2017. Calcium 9.8 8.5 - 10.3 mg/dL [facility] ([place]LLA) Phosphorus, pl 2.5 2.3 - 4.5 mg/dL [facility] ([facility]) Albumin 3.2(L) 3.5 - 5.0 g/dL [facility] ([place]) Blood specimen (specimen) 03/21/2019 3:28 AM LOAN SERVICE OFFICER 03/21/2019 3:50 AM LOAN SERVICE OFFICER us Doreen Quintero MD LAB BLOOD ORDERABLES Fin al Result MADDI [facility] (RINCON) 1 [facility] [place] [address] * (ABNORMAL) Potassium (03/21/2019 12:13 AM CDT) Potassium, pl 2.8(C) 3.3 - 4.9 mmol/L [facility] (ARABELLA) Comment:Critical Result call ed to and read back by teresa calixto, DATE: 2019-03-21 00:50:01 BY: isha alvarez Blood specimen (specimen) 03/21/2019 12:13 AM CDT 03/21/2019 12:27 AM CDT us Maria Del Rosario Vences MD LAB BLOOD ORDERABLES Final Resul t MADDI HOFF (RINCON) 1 [facility] [place] [address] * Magnesium (03/21/2019 12:08 AM CDT) Magnesium 1.9 1.6 - 2.4 mg/dL MADDI [facility] (RINCON) Blood specimen (specimen) 03/21/2019 12:08 AM CDT 03/21/2019 1:00 AM CDT us Maria Del Rosario Vences MD LAB BLOOD ORDERABLES Final Resul t Performing Organization Address City/[facility]/ZIP Co de Phone Number MADDI HOFF (RINCON) 1 [facility] [place] [address] * (ABNORMAL) POCT glucose (03/20/2019 9:38 PM CDT) Glucose, POC 211(H) 71 - 98 mg/dL MADDI HOFF (RINCON) Blood specimen (specimen) 03/20/2019 9:38 PM CDT 03/20/2019 9:38 PM CDT us Doreen Quintero MD LAB POCT ORDERABLES - DE VICE Final Result MADDI HOFF (RINCON) 1 [facility] [place] [address] * (ABNORMAL) Potassium (03/20/2019 7:37 PM CDT) Potassium, pl 2.9(C) 3.3 - 4.9 mmol/L MADDI LUIS EDUARDO (RINCON) Comment:Critical Result call ed to and read back by Teresa Tomas ([facility]), DATE: 2019-03-20 20:14:43 BY: Jennifer Hernandez Blood specimen (specimen) 03/20/2019 7:37 PM CDT 03/20/2019 7:40 PM CDT us Doreen Quintero MD LAB BLOOD ORDERABLES Fin al Result Performing Organization Address City/[facility]/ZIP Co de Phone Number MADDI HOFF (RINCON) 1 [facility] [place] [address] * (ABNORMAL) Potassium (03/20/2019 6:15 PM CDT) Pathologist [facility] Potassium, pl 2.9(C) 3.3 - 4.9 mmol/L MADDI HOFF (RINCON) Comment:Critical Result call ed to and read back by Connie Gay ([facility]), DATE: 2019-03-20 19:12:14 BY: Jennifer Hernandez Blood specimen (specimen) 03/20/2019 6:15 PM CDT 03/20/2019 6:29 PM CDT us Doreen Quintero MD LAB BLOOD ORDERABLES Fin al Result Performing Organization Address [facility]/ZIP Co de Phone Number MADDI HOFF (RINCON) 1 [facility] [place] [address] * (ABNORMAL) POCT glucose (03/20/2019 4:38 PM CDT) Glucose, POC 262(H) 71 - 98 mg/dL MADDI [facility] (RINCON) Blood specimen (specimen) 03/20/2019 4:38 PM CDT 03/20/2019 4:38 PM CDT us Doreen Quintero MD LAB POCT ORDERABLES - DE VICE Final Result MADDI HOFF (RINCON) 1 [facility] [place] [address] * (ABNORMAL) Potassium (03/20/2019 2:25 PM CDT) Potassium, pl 2.9(C) 3.3 - 4.9 mmol/L [facility] (RINCON) Comment:Critical Result call ed to and read back by Ifeoma Lundberg ([facility]), DATE: 2019-03-20 15:17:05 BY: Jennifer Hernandez Blood specimen (specimen) 03/20/2019 2:25 PM CDT 03/20/2019 2:45 PM CDT us Maria Del Rosario Vences MD LAB BLOOD ORDERABLES Final Resul t MADDI HOFF (RINCON) 1 [facility] [place] [address] * (ABNORMAL) POCT glucose (03/20/2019 12:10 PM CDT) Glucose, POC 191(H) 71 - 98 mg/dL [facility] (RINCON) Blood specimen (specimen) 03/20/2019 12:10 PM CDT 03/20/2019 12:10 PM CDT us Doreen Quintero MD LAB POCT ORDERABLES - DE VICE Final Result MADDI HOFF (RINCON) 1 [facility] [place] [address] * (ABNORMAL) POCT glucose (03/20/2019 8:07 AM CDT) Glucose, POC 145(H) 71 - 98 mg/dL ANNA MARIEKIRSTIN [facility] (RINCON) Blood specimen (specimen) 03/20/2019 8:07 AM CDT 03/20/2019 8:07 AM CDT us Doreen Quintero MD LAB POCT ORDERABLES - DE VICE Final Result MADDI HOFF (RINCON) 1 [facility] [place] [address] * eGFR (03/20/2019 3:36 AM CDT) eGFR 89 mL/min/1.7 3 m2 MADDI HOFF (RINCON) Comment: Interpretive Data Reference Interval Normal ?>/= 90 mL/min/1.73m2 Mildly decreased* ? 60 - 89 mL/min/1.73m2 Mildly to moderately decreased ?45 - 59 mL/min/1.73m2 Moderately to severely decreased ??30 - 44 mL/min/1.73m2 Severely decreased ?15 - 29 mL/min/1.73m2 Kidney Failure ?< 15 ??mL/min/1.73m2 *Relative to young adult level If -[place] multiply value by 1.16. Estimated glomerular filtration [...] was last reviewed 2015. Blood specimen (specimen) 03/20/2019 3:36 AM CDT 03/20/2019 4:11 AM CDT us Doreen Quintero MD LAB BLOOD ORDERABLES Fin al Result MADDI HOFF (RINCON) 1 [facility] [place] [address] * (ABNORMAL) Differential, auto (03/20/2019 3:36 AM CDT) Pathologist [facility] Neutrophil abs 7.7(H) 1.7 - 6.5 K/cumm [facility] (ARABELLA) Imm gran abs 0.0 0.0 - 0.1 K/cumm [facility] ([place]) Lymphocyte abs 1.5 0.8 - 3.3 K/cumm [facility] ([place]) Monocyte abs 1.3(H) 0.2 - 0.8 K/cumm [facility] ([place]) Eosinophil abs 0.3 0.0 - 0.5 K/cumm [facility] ([place]) Basophil abs 0.0 0.0 - 0.1 K/cumm [facility] ([place]A) Neutrophil pct 71.0 % [facility] (ARABELLA) Comment: Interpretive [...] was last revised on 2017. Lymphocyte pct 13.8 % [facility] (ARAB[place]LLA) Comment: Interpretive Data Percent cell count reference ranges are not reported, since discordance with absolute values may lead to misinterpretation of CBC data. Current Interpretive Data was last revised on 2017. Monocyte pct 11.9 % [facility] (ARABELLA) Comment: Interpretive Data Percent cell count reference ranges are not reported, since discordance with absolute values may lead to misinterpretation of CBC data. Current Interpretive Data was last revised on 2017. Eosinophil pct 2.5 % [facility] (AR[place]LLA) Comment: Interpretive [...] last revised on 2017. Blood specimen (specimen) 03/20/2019 3:36 AM CDT 03/20/2019 4:11 AM CDT Doreen Quintero MD LAB BLOOD ORDERABLES Fin al Result MADDI HOFF (ARABELLA) 1 [facility] [place] [address] * Magnesium (03/20/2019 3:36 AM CDT) Magnesium 2.0 1.6 - 2.4 mg/dL [facility] (ARABELLA) Blood specimen (specimen) 03/20/2019 3:36 AM CDT 03/20/2019 4:11 AM CDT Doreen Quintero MD LAB BLOOD ORDERABLES Fin al Result Performing Organization Address [facility] Co de Phone Number [facility] (ARABELLA) 1 [facility] [place] [address] * (ABNORMAL) Renal function panel (03/20/2019 3:36 AM CDT) Sodium 140 135 - 145 mmol/L [facility] (ARABELLA) Potassium, pl 2.9(C) 3.3 - 4.9 mmol/L [facility] (ARABELLA) Comment:Critical Result call ed to and read back by Jose Gonzalez, DATE: 2019-03-20 05:01:14 BY: Brooke Barnard Chloride 100 97 - 110 mmol/L [facility] (ARABELLA) CO2 29 22 - 32 mmol/L [facility] ([place]) Anion gap 11 2 - 15 mmol/L [facility] ([place]ABELLA) BUN 17 8 - 25 mg/dL [facility] ([place]) Creatinine 0.55(L) 0.60 - 1.10 mg/dL [facility] (ARABELLA) Glucose 174 70 - 199 mg/dL [facility] (ARABELLA) [...] interpretive data was last revised 2017. Calcium 10.4(H) 8.5 - 10.3 mg/dL [facility] (ARAB[place]LLA) Phosphorus, pl 1.9(L) 2.3 - 4.5 mg/dL [facility] (ARABELLA) Albumin 3.5 3.5 - 5.0 g/dL [facility] (AR[place]LLA) Blood specimen (specimen) 03/20/2019 3:36 AM CDT 03/20/2019 4:11 AM CDT us Doreen Quintero MD LAB BLOOD ORDERABLES Fin al Result [facility] (ARABELLA) 1 [facility] [place] [address] * (ABNORMAL) CBC with auto differential (03/20/2019 3:36 AM CDT) WBC 10.8(H) 3.8 - 9.9 K/cumm [facility] (ARABELLA) Hgb 12.2 11.9 - 15.5 g/dL [facility] (ARABELLA) Hct 37.8 35.6 - 45.5 % [facility] (ARABELLA) Plt 333 150 - 400 K/cumm [facility] ([place]A) MPV 10.6 9.1 - 12.3 fL [facility] ([place]A) RBC 4.49 3.90 - 5.20 M/cumm [facility] (AR[place]LLA) MCV 84.2 81.3 - 96.4 fL [facility] ([place]A) MCH 27.2 27.1 - 33.3 pg [facility] ([place]A) MCHC 32.3 32.3 - 35.7 g/dL [facility] (ARABELLA) RDW CV 16.0(H) 11.1 - 14.9 % [facility] (ARABELLA) RDW SD 48.8(H) 35.7 - 48.1 fL MADDI HOFF (RINCON) NRBC abs 0.00 0.00 - 0.01 K/cumm MADDI HOFF (RINCON) Blood specimen (specimen) 03/20/2019 3:36 AM CDT 03/20/2019 4:11 AM CDT Doreen Quintero MD LAB BLOOD ORDERABLES Fin al Result MADDI HOFF (RINCON) 1 [facility] [place] [address] * (ABNORMAL) POCT glucose (03/20/2019 2:40 AM CDT) Glucose, POC 158(H) 71 - 98 mg/dL [facility] (RINCON) Blood specimen (specimen) 03/20/2019 2:40 AM CDT 03/20/2019 2:40 AM CDT Gay Escudero MD LAB POCT ORDERABLES - DEVICE Fin al Result Performing Organization Address City/[facility] Co de Phone Number MADDI HOFF (RINCON) 1 [facility] [place] [address] * (ABNORMAL) POCT glucose (03/19/2019 9:54 PM CDT) Glucose, POC 203(H) 71 - 98 mg/dL [facility] (RINCON) Blood specimen (specimen) 03/19/2019 9:54 PM CDT 03/19/2019 9:54 PM CDT Gay Escuedro MD LAB POCT ORDERABLES - DEVICE Fin al Result MADDI HOFF (RINCON) 1 [facility] [place] [address] * eGFR (03/19/2019 6:56 PM CDT) eGFR 75 mL/min/1.7 3 m2 MADDI HOFF (ARABELLA) Comment: Interpretive Data Reference Interval Normal ?>/= 90 mL/min/1.73m2 Mildly decreased* ? 60 - 89 mL/min/1.73m2 Mildly to moderately decreased ?45 - 59 mL/min/1.73m2 Moderately to severely decreased ??30 - 44 mL/min/1.73m2 Severely decreased ?15 - 29 mL/min/1.73m2 Kidney Failure ?< 15 ??mL/min/1.73m2 *Relative to young adult level If -[place] multiply value by 1.16. Estimated glomerular filtration [...] was last reviewed 2015. Blood specimen (specimen) 03/19/2019 6:56 PM CDT 03/19/2019 6:57 PM CDT Doreen Quintero MD LAB BLOOD ORDERABLES Fin al Result MADDI HOFF (ARABELLA) 1 [facility] [place] [address] * Vitamin D 25 hydroxy (03/19/2019 6:56 PM CDT) Vitamin D 25-OH 38 30 - 80 ng/mL MADDI HOFF (ARABELLA) Comment:Testing performed by : [facility], [address], [place]., [address] Blood specimen (specimen) 03/19/2019 6:56 PM CDT 03/19/2019 6:57 PM CDT us Doreen Quintero MD LAB BLOOD ORDERABLES Fin al Result Performing Organization Address City/[facility]/ZIP Co de Phone Number MADDI HOFF (ARABELLA) 1 [facility] [place] [address] * PTH (03/19/2019 6:56 PM CDT) PTH 41 15 - 65 pg/mL [facility] (ARABELLA) Blood specimen (specimen) 03/19/2019 6:56 PM CDT 03/19/2019 6:57 PM CDT us Doreen Quintero MD LAB BLOOD ORDERABLES Michael roshan Result - Final Performing Organization Address [facility] Co de Phone Number MADDI HOFF (RINCON) 1 [place] [address] * (ABNORMAL) Calcium, ionized, whole blood (03/19/2019 6:56 PM CDT) Ca, ionized, bld 5.46(H) 4.61 - 5.17 mg/dL [facility] LUIS EDUARDO (ARABELLA) Blood specimen (specimen) 03/19/2019 6:56 PM CDT 03/19/2019 6:57 PM CDT Doreen Quintero MD LAB BLOOD ORDERABLES Fin al Result Performing Organization Address [facility] Co de Phone Number MADDI HOFF (ARABELLA) 1 [facility] [place] [address] * (ABNORMAL) Basic metabolic panel (03/19/2019 6:56 PM CDT) Sodium 139 135 - 145 mmol/L [facility] (ARABELLA) Potassium, pl 3.4 3.3 - 4.9 mmol/L [facility] (ARABELLA) Chloride 98 97 - 110 mmol/L [facility] (ARABELLA) CO2 33(H) 22 - 32 mmol/L [facility] (ARABELLA) Anion gap 8 2 - 15 mmol/L [facility] (ARABELLA) BUN 20 8 - 25 mg/dL [facility] (ARABELLA) Creatinine 0.75 0.60 - 1.10 mg/dL [facility] (ARABELLA) Glucose 234(H) 70 - 199 mg/dL [facility] (ARABELLA) [...] 2017. Calcium 10.8(H) 8.5 - 10.3 mg/dL [facility] (ARABELLA) Blood specimen (specimen) 03/19/2019 6:56 PM CDT 03/19/2019 6:57 PM CDT us Doreen Quintero MD LAB BLOOD ORDERABLES Fin al Result MADDI HOFF (ARABELLA) 1 [facility] [email or web address] [address] * (ABNORMAL) POCT glucose (03/19/2019 4:46 PM CDT) [facility] Glucose, POC 225(H) 71 - 98 mg/dL [facility] ([place]) Blood specimen (specimen) 03/19/2019 4:46 PM CDT 03/19/2019 4:46 PM CDT us Gay Escudero MD LAB POCT ORDERABLES - DEVICE Fin al Result MADDI HOFF (ARABELLA) 1 [facility] [email or web address] [address] * CT Cervical Spine WO Contrast (03/19/2019 10:39 AM CDT) Anatomical Region Laterality Modality Spine N/A Computed Tomogra phy 03/19/2019 10:4 5 AM CDT Impressions 03/19/2019 10:54 AM CDT NO ACUTE CERVICAL SPINE FRACTURE OR DISLOCATION WITH MULTILEVEL OSTEOARTHRITIS OF THE CERVICAL SPINE. Electronically signed by: Raghu Gutierrez M.D. Narrative 03/19/2019 10:[address] CERVICAL SPINE WO CONTRAST HISTORY: ??Cervical pain status post fall TECHNIQUE: Serial axial images of the cervical spine with reconstructed coronal and sagittal views obtained. COMPARISON: Cervical spine CT 09/29/2018 FINDINGS: There is no acute cervical spine fracture or dislocation. There is mild C5-C6 and moderate C6-C7 disc space narrowing. ??There is a grade 1 anterior spondylolisthesis of C3 relative to C4 and a grade 1 posterior spondylolisthesis of C5 relative to C6 again noted. There are degenerative endplate spurs at multiple levels. ??There is also multilevel facet and uncovertebral joint osteoarthritis. Overall no significant central canal stenosis is identified. ??Is mild neural foraminal stenosis on the left at C4-C5, mild left and moderate right neural foraminal stenosis at C5-C6 and mild left neural foraminal stenosis at C6-C7. Procedure Note Raghu Gutierrez MD - 03/19/2019 CT CERVICAL SPINE WO CONTRAST HISTORY: Cervical pain status post fall TECHNIQUE: Serial axial images of the cervical spine with reconstructed coronal and sagittal views obtained. COMPARISON: Cervical spine CT 09/29/2018 FINDINGS: There is no acute cervical spine fracture or dislocation. There is mild C5-C6 and moderate C6-C7 disc space narrowing. There is a grade 1 anterior spondylolisthesis of C3 relative to C4 and a grade 1 posterior spondylolisthesis of C5 relative to C6 again noted. There are degenerative endplate spurs at multiple levels. There is also multilevel facet and uncovertebral joint osteoarthritis. Overall no significant central canal stenosis is identified. Is mild neural foraminal stenosis on the left at C4-C5, mild left and moderate right neural foraminal stenosis at C5-C6 and mild left neural foraminal stenosis at C6-C7. IMPRESSION: NO ACUTE CERVICAL SPINE FRACTURE OR DISLOCATION WITH MULTILEVEL OSTEOARTHRITIS OF THE CERVICAL SPINE. Electronically signed by: Raghu Gutierrez M.D. us Jj Jewell MD [facility] CT PROCEDURES Final Result * CT Head WO Contrast (03/19/2019 10:39 AM CDT) Anatomical Region Laterality Modality Head and Neck N/A Computed Tomogra phy 03/19/2019 10:4 2 AM CDT Impressions 03/19/2019 10:45 AM CDT 1. ??NO ACUTE INTRACRANIAL ABNORMALITY. 2. ??MODERATE SMALL VESSEL WHITE MATTER ISCHEMIC DISEASE. Electronically signed by: Raghu Gutierrez M.D. Narrative 03/19/2019 10:45 AM CDT PROCEDURE: CT HEAD WO CONTRAST HISTORY: Head pain. ??Recent fall. COMPARISON: Brain CT 09/29/2018 TECHNIQUE: Serial axial images of the brain were obtained without contrast. ?? FINDINGS: There is no acute intracranial hemorrhage, midline shift or mass effect. ??There is mild diffuse cortical atrophy. ??Moderate small vessel White matter ischemic disease is again noted. ??There is prominent carotid and vertebral arterial calcification bilaterally. There is no acute skull fracture. There is minimal ethmoid sinus mucosal thickening otherwise the paranasal sinuses are clear. ??There is a large oz bullosa noted on the right. The mastoids are clear bilaterally. Procedure Note Raghu Gutierrez MD - 03/19/2019 PROCEDURE: CT HEAD WO CONTRAST HISTORY: Head pain. Recent fall. COMPARISON: Brain CT 09/29/2018 TECHNIQUE: Serial axial images of the brain were obtained without contrast. FINDINGS: There is no acute intracranial hemorrhage, midline shift or mass effect. There is mild diffuse cortical atrophy. Moderate small vessel White matter ischemic disease is again noted. There is prominent carotid and vertebral arterial calcification bilaterally. There is no acute skull fracture. There is minimal ethmoid sinus mucosal thickening otherwise the paranasal sinuses are clear. 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 The mastoids are clear bilaterally. IMPRESSION: 1. NO ACUTE INTRACRANIAL ABNORMALITY. 2. MODERATE SMALL VESSEL WHITE MATTER ISCHEMIC DISEASE. Electronically signed by: Raghu L. Shady, M.D. Jj Jewell MD IMG CT PROCEDURES Final Result * (ABNORMAL) Differential, auto (03/19/2019 10:13 AM CDT) Neutrophil abs 9.0(H) 1.7 - 6.5 K/cumm [facility] ([place]A) Imm gran abs 0.1 0.0 - 0.1 K/cumm [facility] ([place]) Lymphocyte abs 1.4 0.8 - 3.3 K/cumm [facility] ([place]) Monocyte abs 1.2(H) 0.2 - 0.8 K/cumm [facility] ([place]A) Eosinophil abs 0.2 0.0 - 0.5 K/cumm [facility] ([place]A) Basophil abs 0.0 0.0 - 0.1 K/cumm [facility] ([place]A) Neutrophil pct 75.8 % [facility] ([place]ABELLA) Comment: Interpretive [...] was last revised on 2017. Lymphocyte pct 11.5 % [facility] (ARABELLA) Comment: Interpretive Data Percent cell count reference ranges are not reported, since discordance with absolute values may lead to misinterpretation of CBC data. Current Interpretive Data was last revised on 2017. Monocyte pct 10.5 % [facility] ([place]ABELLA) Comment: Interpretive Data Percent cell count reference ranges are not reported, since discordance with absolute values may lead to misinterpretation of CBC data. Current Interpretive Data was last revised on 2017. Eosinophil pct 1.3 % [facility] (ARABELLA) Comment: Interpretive [...] last revised on 2017. Blood specimen (specimen) 03/19/2019 10:13 AM CDT 03/19/2019 10:53 AM CDT Jj Jewell MD LAB BLOOD ORDERABLES Final Res ult Performing Organization Address City/[facility]/ZIP Co de Phone Number [facility] ([place]ELLA) 1 [facility] [place] [address] * (ABNORMAL) CBC with auto differential (03/19/2019 10:13 AM CDT) WBC 11.8(H) 3.8 - 9.9 K/cumm [facility] ([place]A) Hgb 13.4 11.9 - 15.5 g/dL [facility] ([place]A) Hct 40.0 35.6 - 45.5 % [facility] ([place]A) Plt 378 150 - 400 K/cumm [facility] ([place]A) MPV 10.8 9.1 - 12.3 fL [facility] ([place]A) RBC 4.90 3.90 - 5.20 M/cumm [facility] ([place]A) MCV 81.6 81.3 - 96.4 fL [facility] ([place]A) MCH 27.3 27.1 - 33.3 pg [facility] ([place]) MCHC 33.5 32.3 - 35.7 g/dL [facility] ([place]A) RDW CV 15.8(H) 11.1 - 14.9 % [facility] ([place]A) RDW SD 46.3 35.7 - 48.1 fL [facility] ([place]) NRBC abs 0.00 0.00 - 0.01 K/cumm [facility] ([place]A) Blood specimen (specimen) 03/19/2019 10:13 AM CDT 03/19/2019 10:53 AM CDT us Jj Jewell MD LAB BLOOD ORDERABLES Final Res ult MADDI HOFF (RINCON) 1 [facility] [place] [address] * eGFR (03/19/2019 10:13 AM CDT) Pathologist [facility] eGFR 83 mL/min/1.7 3 m2 [facility] (RINCON) Comment: Interpretive Data Reference Interval Normal ?>/= 90 mL/min/1.73m2 Mildly decreased* ? 60 - 89 mL/min/1.73m2 Mildly to moderately decreased ?45 - 59 mL/min/1.73m2 Moderately to severely decreased ??30 - 44 mL/min/1.73m2 Severely decreased ?15 - 29 mL/min/1.73m2 Kidney Failure ?< 15 ??mL/min/1.73m2 *Relative to young adult level If -[place] multiply value by 1.16. Estimated glomerular filtration [...] was last reviewed 2015. Blood specimen (specimen) 03/19/2019 10:13 AM CDT 03/19/2019 10:17 AM CDT us Jj Jewell MD LAB BLOOD ORDERABLES Final Res ult MADDI HOFF ([place]) 1 [facility] [place] [address] * Pro B-type natriuretic peptide (03/19/2019 10:13 AM CDT) Pathologist [facility] NT-proBNP 225 <=450 pg/mL MADDI HOFF ([place]) Comment: Interpretive [...] Last Revised Date: 2018. Blood specimen (specimen) 03/19/2019 10:13 AM CDT 03/19/2019 10:17 AM CDT us Jj Jewell MD LAB BLOOD ORDERABLES Final Res ult MADDI GOLDMAN) 1 [facility] [place] [address] * (ABNORMAL) Comprehensive metabolic panel (03/19/2019 10:13 AM CDT) Sodium 136 135 - 145 mmol/L [facility] ([place]) Potassium, pl 2.5(C) 3.3 - 4.9 mmol/L [facility] ([place]) Comment:Critical Result call ed to and read back by CARSON SZYMANSKI, DATE: 2019-03-19 10:43:17 BY: DENNISE ROMAN Chloride 93(L) 97 - 110 mmol/L [facility] ([place]) CO2 32 22 - 32 mmol/L [facility] ([place]) Anion gap 11 2 - 15 mmol/L [facility] ([place]) BUN 23 8 - 25 mg/dL [facility] ([place]) Creatinine 0.67 0.60 - 1.10 mg/dL [facility] ([place]) Glucose 177 70 - 199 mg/dL [facility] ([place]) [...] interpretive data was last revised 2017. Calcium 11.8(H) 8.5 - 10.3 mg/dL [facility] ([place]) Bilirubin, total 0.5 0.1 - 1.2 mg/dL [facility] ([place]) Protein, pl 6.4(L) 6.5 - 8.5 g/dL [facility] ([place]) Albumin 4.1 3.5 - 5.0 g/dL [facility] ([place]) Alk phos 104 40 - 130 Units/L [facility] ALT 30 7 - 45 Units/L [facility] ([place]) AST 29 10 - 45 Units/L [facility] ([place] Blood specimen (specimen) 03/19/2019 10:13 AM CDT 03/19/2019 10:17 AM CDT Jj Jewell MD LAB BLOOD ORDERABLES Final Res ult Performing Organization Address [facility] Co de Phone Number MADDI HOFF (AR[place]A) 1 [facility] [place] [address] * Protime-INR (03/19/2019 10:13 AM CDT) PT 12.5 9.5 - 13.0 sec [facility] ([place]) INR 1.11 0.90 - 1.20 [facility] (ARABELLA) Comment: Interpretive Data Recommended ranges for Protime INR: 2.0 - 3.0 Most indications for Warfarin therapy (e.g. Treatment of DVT, PE, bioprosthetic valve replacement, prophylaxis venous thrombosis, atrial fibrillation). 2.5 - 3.5 Mechanical mitral valve or dual mechanical mitral and Aortic valve replacement. Current Interpretive Data was last revised on 2015. Blood specimen (specimen) 03/19/2019 10:13 AM CDT 03/19/2019 10:17 AM CDT Jj Jewell MD LAB BLOOD ORDERABLES Final Res ult Performing Organization Address [facility] de Phone Number [facility] ([place]) 1 [facility] [place] [address] * ECG 12 lead (03/19/2019 10:00 AM CDT) 03/19/2019 10:0 0 AM CDT Narrative [facility] - 03/21/2019 10:58 AM LOAN SERVICE OFFICER Vent Rate: 85 bpm RR Interval: 699 msec IA Interval: 233 msec QRS Duration: 136 msec QT Interval: 306 msec QTC Interval: 349 msec P-R-T [place]: 45 - -33 - 31 degrees SINUS RHYTHM WITH FIRST DEGREE AV BLOCK LEFT AXIS DEVIATION ??[QRS AXIS < -30] INTRAVENTRICULAR CONDUCTION DELAY ??[130+ ms QRS DURATION] PROBABLE LATERAL MYOCARDIAL INFARCTION , PROBABLY OLD [35 ms Q WAVE IN I/aVL/V5/V6] ABNORMAL ECG Electronically Signed By: Sonny Vail MD us Jj Jewell MD ECG ORDERABLES Final Result [facility] documented in this encounter Visit Diagnoses Diagnosis Fall- Primary Unspecified fall Multiple falls Minor head injury, initial encounter Hypokalemia Hypopotassemia Hypokalemia Hypopotassemia Hypercalcemia Multiple falls documented in this encounter Administered Medications Inactive Administered Medications - up to 3 most recent administrations Medication Order MAR Action Action Date Dose Rate Site acetaminophen (TYLENOL) tablet 650 mg 650 mg, oral, Every 4 hours PRN, 1st line for pain, Starting on Fri03/19/19 at 1359, Indications: PainIndications:Pain Given 03/20/2019 3:57 PM CDT 650 mg Given 03/20/2019 6:18 AM CDT 650 mg amitriptyline (ELAVIL) tablet 50 mg 50 mg, oral, Daily with dinner, First dose on Fri03/19/19 at 1815 Given 03/22/2019 5:28 PM LOAN SERVICE OFFICER 50 mg Given 03/21/2019 4:39 PM LOAN SERVICE OFFICER 50 mg Given 03/20/2019 4:43 PM CDT 50 mg anastrozole (ARIMIDEX) tablet 1 mg 1 mg, oral, Nightly, First dose on Fri03/19/19 at 2100, Indications: prevention of breast cancer in high risk womenIndications:prevention of breast cancer in high risk women Given 03/21/2019 9:29 PM LOAN SERVICE OFFICER 1 mg Given 03/20/2019 9:31 PM CDT 1 mg Given 03/19/2019 10:13 PM CDT 1 mg aspirin enteric coated tablet 81 mg 81 mg, oral, Daily, First dose on Fri03/19/19 at 1815, Do not crush, chew, cut, dissolve, open or otherwise manipulate tablet/capsule. Given 03/22/2019 8:18 AM LOAN SERVICE OFFICER 81 mg Given 03/21/2019 7:50 AM LOAN SERVICE OFFICER 81 mg Given 03/20/2019 8:24 AM CDT 81 mg bisacodyl EC (DULCOLAX EC) tablet 10 mg 10 mg, oral, Daily PRN, constipation, If no results 24 hours after milk of magnesia, Starting on Fri03/19/19 at 1715, Do not crush, chew, cut, dissolve, open or otherwise manipulate tablet/capsule. clopidogrel (PLAVIX) tablet 75 mg 75 mg, oral, Daily, First dose on Fri03/19/19 at 1815 Given 03/22/2019 8:17 AM LOAN SERVICE OFFICER 75 mg Given 03/21/2019 7:50 AM LOAN SERVICE OFFICER 75 mg Given 03/20/2019 8:24 AM CDT 75 mg cyanocobalamin (Vitamin B-12) tablet 1,000 mcg 1,000 mcg, oral, Daily, First dose on Fri03/19/19 at 1815 Given 03/22/2019 8:15 AM LOAN SERVICE OFFICER 1,000 mcg Given 03/21/2019 7:49 AM LOAN SERVICE OFFICER 1,000 mcg Given 03/20/2019 8:24 AM CDT 1,000 mcg dextrose (D10W) 10% bolus 250 mL 250 mL, intravenous, at 1,000 mL/hr, Administer over 15 Minutes, Every 15 min PRN, blood glucose less than 70 mg/dL and UNABLE to swallow/take PO glucose/juice., Starting on Fri03/19/19 at 1714, After treatment for hypoglycemia, recheck BG followed by treatment every 15 minutes until the BG is greater than 100 mg/dL. Then check BG 1 hour post treatment. If BG is less than 100 mg/dL, repeat Q15 minute BG checks and treatment. Call MD for each episode of hypoglycemia., Indications: hypoglycemic disorderIndications:hypoglycem ic disorder dextrose gel in packet 15 g 15 g, oral, Every 15 min PRN, low blood sugar, blood glucose less than 70 mg/dL, Starting on Fri03/19/19 at 1714, If patient is alert and able to [...] for each episode of hypoglycemia., Indications: hypoglycemic disorderIndications:hypoglycem ic disorder enoxaparin (LOVENOX) syringe 40 mg 40 mg, subcutaneous, Daily (for enoxaparin), First dose on Fri03/19/19 at 2100, Indications: Deep Vein Thrombosis PreventionIndications:Deep Vein Thrombosis Prevention Given 03/21/2019 9:28 PM LOAN SERVICE OFFICER 40 mg Right Upper Abdomen Given 03/20/2019 9:33 PM CDT 40 mg Ri ght Upper Abdomen Given 03/19/2019 10:14 PM CDT 40 mg R ight Lower Abdomen famotidine (PEPCID) tablet 20 mg 20 mg, oral, Daily, First dose on Fri03/19/19 at 2000, This therapy was substituted for pantoprazole 40mg daily per protocol., Indications: Prevention of Stress UlcerIndications:Prevention of Stress Ulcer Given 03/22/2019 8:18 AM LOAN SERVICE OFFICER 20 mg Given 03/21/2019 7:49 AM LOAN SERVICE OFFICER 20 mg Given 03/20/2019 8:24 AM CDT 20 mg flecainide (TAMBOCOR) tablet 50 mg 50 mg, oral, 2 times daily, First dose on Fri03/19/19 at 2100 Given 03/22/2019 8:15 AM LOAN SERVICE OFFICER 50 mg Given 03/21/2019 9:29 PM LOAN SERVICE OFFICER 50 mg Given 03/21/2019 8:22 AM LOAN SERVICE OFFICER 50 mg furosemide (LASIX) tablet 60 mg 60 mg, oral, Daily, First dose on Fri03/20/19 at 0900, Indications: EdemaIndications:Edema Given 03/22/2019 8:17 AM LOAN SERVICE OFFICER 60 mg Given 03/21/2019 8:22 AM LOAN SERVICE OFFICER 60 mg Given 03/20/2019 8:24 AM CDT 60 mg glucagon injection 1 mg 1 mg, intramuscular, Administer over 1 Minutes, Every 30 min PRN, low blood sugar, blood glucose less than 70 mg/dL AND no IV access AND unable to take PO glucose/jiuce., Starting on Fri03/19/19 at 1714, After Glucagon is administered, position patient on [...] MD for each episode of hypoglycemia., Indications: HypoglycemiaIndications:Hypoglyc emia insulin lispro (HumaLOG) pen injection 1-3 Units 1-3 Units, subcutaneous, Nightly, First dose on Fri03/19/19 at 2100, Blood Sugar Mid Dose PM - PO patients 175 or less No insulin 176 - 200 1 unit 201 - 250 2 units 251 - 299 3 units Greater than 299 Call MD for hyperglycemia management instructions Do NOT hold for NPO status., Indications: Diabetes MellitusIndications:Diabetes Mellitus Given 03/21/2019 9:29 PM LOAN SERVICE OFFICER 2 Units Right Upper Arm Given 03/20/2019 9:38 PM CDT 2 Units Ri ght Upper Arm Given 03/19/2019 10:07 PM CDT 2 Units R ight Upper Arm insulin lispro (HumaLOG) pen injection 1-5 Units 1-5 Units, subcutaneous, 3 times daily with meals, First dose on Fri03/19/19 at 1800, Blood Sugar Mid Dose meal time - PO patients 139 or less No insulin 140 - 175 1 unit 176 - 200 2 unit 201 - 250 3 units 251 - 299 5 units Greater than 299 Call MD for hyperglycemia management instructions Do NOT hold for NPO status., Indications: Diabetes MellitusIndications:Diabetes Mellitus Given 03/22/2019 5:29 PM LOAN SERVICE OFFICER 2 Units Left Upper Abdomen Given 03/22/2019 12:12 PM LOAN SERVICE OFFICER 2 Units L eft Upper Arm Given 03/22/2019 8:09 AM LOAN SERVICE OFFICER 1 Units Ri ght Upper Arm latanoprost (XALATAN) 0.005 % ophthalmic solution 1 drop 1 drop, each eye, Nightly, First dose on Fri03/19/19 at 2100 Given 03/21/2019 9:28 PM LOAN SERVICE OFFICER 1 drop Given 03/20/2019 9:43 PM CDT 1 drop Given 03/19/2019 10:18 PM CDT 1 drop levothyroxine (SYNTHROID) tablet 25 mcg 25 mcg, oral, Daily (early AM), First dose on Fri03/20/19 at 0600, Administer on an empty stomach, preferably 30 minutes before breakfast. Take 4 hours apart from antacids, iron and calcium products. Given 03/22/2019 7:00 AM LOAN SERVICE OFFICER 25 mcg Given 03/21/2019 6:37 AM LOAN SERVICE OFFICER 25 mcg Given 03/20/2019 6:17 AM CDT 25 mcg magnesium hydroxide (MILK OF MAGNESIA) 80 mg/mL (33.3 mg/mL as elemental magnesium) oral suspension 30 mL 30 mL, oral, Daily PRN, constipation, Starting on Fri03/19/19 at 1715 metOLazone (ZAROXOLYN) tablet 2.5 mg 2.5 mg, oral, 2 times weekly (Once per day on Fri), First dose on Fri03/19/19 at 1815, Indications: friday and Indications:friday and Given 03/22/2019 8:17 AM LOAN SERVICE OFFICER 2.5 mg Given 03/19/2019 6:24 PM CDT 2.5 mg mineral oil (FLEET MINERAL OIL) enema 1 enema 1 enema, rectal, Daily PRN, constipation, if no results 24 hours after bisacodyl, Starting on Fri03/19/19 at 1715, Indications: constipationIndications:constipation multivit aawuezif-bxmz-CW-calcium (THERA-M) tablet 1 tablet 1 tablet, oral, Daily, First dose on Fri03/20/19 at 0900, This therapy was substituted for multivitamin per protocol. Given 03/22/2019 8:15 A M LO[employer] SERVICE OFFICER 1 tablet Given 03/21/2019 7:50 AM LOAN SERVICE OFFICER 1 tablet Given 03/20/2019 8:24 AM CDT 1 tablet ondansetron (ZOFRAN) injection 4 mg 4 mg, intravenous, Administer over 2 Minutes, Every 6 hours PRN, nausea, vomiting, if not tolerating PO, Starting on Fri03/19/19 at 1359, Indications: Nausea and VomitingIndications:Nausea and Vomiting ondansetron ODT (ZOFRAN-ODT) disintegrating tablet 4 mg 4 mg, oral, Every 6 hours PRN, nausea, vomiting, Starting on Fri03/19/19 at 1359, Indications: Nausea and VomitingIndications:Nausea and Vomiting oxybutynin XL (DITROPAN-XL) extended release tablet 10 mg 10 mg, oral, Daily, First dose on Fri03/19/19 at 2000, This therapy was substituted for Mirabegron 25mg daily per protocol. Do not crush, chew, cut, dissolve, open or otherwise manipulate tablet/capsule. Given 03/22/2019 8:15 AM LOAN SERVICE OFFICER 10 mg Given 03/21/2019 7:49 AM LOAN SERVICE OFFICER 10 mg Given 03/20/2019 8:14 AM CDT 10 mg polyvinyl alcohol (LIQUIFILM TEARS) 1.4 % ophthalmic solution 1 drop 1 drop, each eye, 4 times daily PRN, dry eyes, Starting on Fri03/19/19 at 1801, This therapy was substituted for systane eye drops per protocol. potassium chloride (KAYCIEL) 1.3 mEq/mL oral liquid 40 mEq 40 mEq, oral, Once, On Fri03/19/19 at 1131, For 1 dose, Recommend to dilute each 15 mL with at least 6 ounces of water or juice prior to administration. Given 03/19/2019 11:40 AM CDT 40 mEq potassium chloride 40 mEq in sodium chloride 0.9% 500 mL IVPB 40 mEq, intravenous, at 130 mL/hr, Administer over 4 Hours, Once, On Fri03/19/19 at 1500, For 1 dose, Indications: hypokalemiaIndications:hypokalemia New Bag 03/19/2019 3:45 PM CDT 40 mEq 130 mL/hr potassium chloride ER (KLOR-CON) extended release tablet 20 mEq 20 mEq, oral, Once, On Fri03/22/19 at 0800, For 1 dose, Potassium chloride 20 meq orally in addition to Phos-Nak 1 packet orally X 3 doses today per electrolyte replacement protocol for potassium =3.1 and phosphorous = 2.1 on 03/22/19 Do not crush, chew, cut, dissolve, open or otherwise manipulate tablet/capsule. Given 03/22/2019 11:02 AM LOAN SERVICE OFFICER 20 mEq potassium chloride ER (KLOR-CON) extended release tablet 40 mEq 40 mEq, oral, Daily, First dose on Fri03/20/19 at 0900, Do not crush, chew, cut, dissolve, open or otherwise manipulate tablet/capsule. Given 03/22/2019 8:17 AM LOAN SERVICE OFFICER 40 mEq Given 03/21/2019 7:50 AM LOAN SERVICE OFFICER 40 mEq Given 03/20/2019 8:23 AM CDT 40 mEq potassium chloride ER (KLOR-CON) extended release tablet 40 mEq 40 mEq, oral, Every 4 hours, First dose on Fri03/20/19 at 0630, For 2 doses, Total dose = 80 mEq Do not crush, chew, cut, dissolve, open or otherwise manipulate tablet/capsule. Given 03/20/2019 6:17 AM CDT 40 mEq potassium chloride ER (KLOR-CON) extended release tablet 40 mEq 40 mEq, oral, Once, On 03/20/19 at 1615, For 1 dose, Do not crush, chew, cut, dissolve, open or otherwise manipulate tablet/capsule. Given 03/20/2019 3:54 PM CDT 40 mEq potassium chloride ER (KLOR-CON) extended release tablet 40 mEq 40 mEq, oral, Every 4 hours, First dose on 03/21/19 at 0315, For 2 doses, Total dose = 80 mEq Do not crush, chew, cut, dissolve, open or otherwise manipulate tablet/capsule. Given 03/21/2019 6:37 AM LOAN SERVICE OFFICER 40 mEq Given 03/21/2019 3:39 AM LOAN SERVICE OFFICER 40 mEq potassium, sodium phosphates (PHOS-NAK) 280-160-250 mg packet 1 packet 1 packet, oral, 3 times daily, First dose on 03/20/19 at 0915, For 3 doses, X 3 doses today per electrolyte replacement protocol for phos =1.9 on 03/20 Each packet contains 250 mg elemental phosphorus., Indications: hypophosphatemiaIndications:hypophosphatemi a Given 03/20/2019 9:32 PM CDT 1 packet Given 03/20/2019 3:54 PM CDT 1 packet Given 03/20/2019 9:20 AM CDT 1 packet potassium, sodium phosphates (PHOS-NAK) 280-160-250 mg packet 1 packet 1 packet, oral, 3 times daily, First dose (after last reorder) on 03/21/19 at 0915, For 3 doses, X 3 doses today per electrolyte replacement protocol for phos =2.5 on 03/21 Each packet contains 250 mg elemental phosphorus., Indications: hypophosphatemiaIndications:hypophosphatemi a Given 03/21/2019 9:29 PM LOAN SERVICE OFFICER 1 packet Given 03/21/2019 4:28 PM LOAN SERVICE OFFICER 1 packet Given 03/21/2019 8:57 AM LOAN SERVICE OFFICER 1 packet potassium, sodium phosphates (PHOS-NAK) 280-160-250 mg packet 1 packet 1 packet, oral, 3 times daily before meals, First dose on 03/22/19 at 0730, For 3 doses, Each packet contains 250 mg elemental phosphorus. Potassium chloride 20 meq orally in addition to Phos-Nak 1 packet orally X 3 doses today per electrolyte replacement protocol for potassium =3.1 and phosphorous = 2.1 on 03/22/19 Given 03/22/2019 5:29 PM LOAN SERVICE OFFICER 1 packet Given 03/22/2019 11:04 AM LOAN SERVICE OFFICER 1 packet Given 03/22/2019 8:18 AM LOAN SERVICE OFFICER 1 packet rosuvastatin (CRESTOR) tablet 10 mg 10 mg, oral, Daily, First dose on Fri03/19/19 at 1815 Given 03/22/2019 8:15 AM LOAN SERVICE OFFICER 10 mg Given 03/21/2019 8:22 AM LOAN SERVICE OFFICER 10 mg Given 03/20/2019 8:13 AM CDT 10 mg verapamil SR (CALAN SR) extended release tablet 240 mg 240 mg, oral, Daily, First dose on Fri03/19/19 at 2000, This therapy was substituted for Verelan 240 mg daily per protocol. Tablets that are scored may be split, but do not crush, chew, dissolve, open or otherwise manipulate tablet/capsule. Given 03/22/2019 8:19 AM LOAN SERVICE OFFICER 240 mg Given 03/21/2019 8:22 AM LOAN SERVICE OFFICER 240 mg Given 03/20/2019 8:24 AM CDT 240 mg documented in this encounter Discontinued Medications Medication Sig Discontinue Reason Start Date End Da te lubiprostone (AMITIZA) 24 mcg capsuleIndications:chron ic idiopathic constipation Take 24 mcg by mouth daily with breakfast. Therapy completed 03/19/2019 amitriptyline (ELAVIL) 25 mg tablet take 1 tablet (25MG) by ORAL route every 24 hours with meals Duplicate order 01/10/2012 03/19/2019 furosemide (LASIX) 40 mg tabletIndications:Edema Take 1 tablet (40 mg total) by mouth daily. 10/03/2017 03/22/2019 potassium chloride ER (KLOR-CON) 10 mEq CR tablet Take 4 tablet/capsule (40 mEq total) by mouth daily Reorder 03/08/2019 03/22/2019 artificial tears (SYSTANE GEL) 0.3 % gel prn Stop Taking at Discharge 07/01/2016 03/22/2019 documented as of this encounter Historical Medications * This list may reflect changes made after this encounter. amitriptyline (ELAVIL) 50 mg tablet Take 50 mg by mouth daily with dinner 9 mirabegron ER (MYRBETRIQ) 25 mg tablet extended release 24 hr 25 mg daily 9 bromfenac 0.07 % dropsIndications:Bi directional Cardiovascular Shunt Administer 1 drop into affected eye(s) 2 (two) times a day 1 artificial tears (SYSTANE) 0.3 % gel Apply 1 drop to both eyes nightly as needed 1 added in this encounter Active and Recently Administered Medications Due to Daylight Saving Time, this section may contain times in both CDT and LOAN SERVICE OFFICER. Scheduled Medication Order 03/20/2019 03/21/2019 03/22/2019 amitriptyline (ELAVIL) tablet 50 mg 50 mg, oral, Daily with dinner, First dose on Fri03/19/19 at 1815 1643 (Given - Provider: Connie Britton RN) 1639 (Given - Provider: Connie Britton RN) 1728 (Given - Provider: Manish Chavez RN) anastrozole (ARIMIDEX) tablet 1 mg 1 mg, oral, Nightly, First dose on Fri03/19/19 at 2100, Indications: prevention of breast cancer in high risk women 2131 (Given - Provider: Christine Hameed RN) 2129 (Given - Provider: Christine Hameed RN) aspirin enteric coated tablet 81 mg 81 mg, oral, Daily, First dose on Fri03/19/19 at 1815, Do not crush, chew, cut, dissolve, open or otherwise manipulate tablet/capsule. 0824 (Given - Provider: Connie Britton RN) 0750 (Given - Provider: Connie Britton RN) 0818 (Given - Provider: Manish Chavez, DES) clopidogrel (PLAVIX) tablet 75 mg 75 mg, oral, Daily, First dose on Fri03/19/19 at 1815 0824 (Given - Provider: Connie Britton RN) 0750 (Given - Provider: Connie Britton RN) 0817 (Given - Provider: Manish Chavez RN) cyanocobalamin (Vitamin B-12) tablet 1,000 mcg 1,000 mcg, oral, Daily, First dose on Fri03/19/19 at 1815 0824 (Given - Provider: Connie Britton RN) 0749 (Given - Provider: Connie Britton RN) 0815 (Given - Provider: Manish Chavez RN) enoxaparin (LOVENOX) syringe 40 mg 40 mg, subcutaneous, Daily (for enoxaparin), First dose on Fri03/19/19 at 2100, Indications: Deep Vein Thrombosis Prevention 2133 (Given - Provider: Christine Hameed RN) 2127 (Given - Provider: Christine Hameed RN) famotidine (PEPCID) tablet 20 mg 20 mg, oral, Daily, First dose on Fri03/19/19 at 2000, This therapy was substituted for pantoprazole 40mg daily per protocol., Indications: Prevention of Stress Ulcer 0824 (Given - Provider: Connie Britton RN) 0749 (Given - Provider: Connie Britton RN) 0818 (Given - Provider: Manish Chavez, DES) flecainide (TAMBOCOR) tablet 50 mg 50 mg, oral, 2 times daily, First dose on Fri03/19/19 at 2100 0814 (Given - Provider: Connie Britton RN)2129 (Given - Provider: Christine Hameed RN) 0822 (Given - Provider: Connie Britton RN)2128 (Given - Provider: Christine Hameed, DES) 0815 (Given - Provider: Manish Chavez, DES) furosemide (LASIX) tablet 60 mg 60 mg, oral, Daily, First dose on Fri03/20/19 at 0900, Indications: Edema 0824 (Given - Provider: Connie Britton RN) 0822 (Given - Provider: Connie Britton RN) 0817 (Given - Provider: Manish Chavez, DES) insulin lispro (HumaLOG) pen injection 1-3 Units 1-3 Units, subcutaneous, Nightly, First dose on Fri03/19/19 at 2100, Blood Sugar Mid Dose PM - PO patients 175 or less No insulin 176 - 200 1 unit 201 - 250 2 units 251 - 299 3 units Greater than 299 Call MD for hyperglycemia management instructions Do NOT hold for NPO status., Indications: Diabetes Mellitus 2137 (Given - Provider: Christine Hameed RN) 2128 (Given - Provider: Christine Hameed RN) insulin lispro (HumaLOG) pen injection 1-5 Units 1-5 Units, subcutaneous, 3 times daily with meals, First dose on Fri03/19/19 at 1800, Blood Sugar Mid Dose meal time - PO patients 139 or less No insulin 140 - 175 1 unit 176 - 200 2 unit 201 - 250 3 units 251 - 299 5 units Greater than 299 Call MD for hyperglycemia management instructions Do NOT hold for NPO status., Indications: Diabetes Mellitus 0812 (Given - Provider: Connie Britton RN)1228 (Given - Provider: Connie Britton RN)1639 (Given - Provider: Connie Britton RN) 0746 (Not Given - Provider: Connie Britton RN - Reason: Order parameters not met)1155 (Given - Provider: Connie Britton RN)1638 (Given - Provider: Connie Britton RN) 0809 (Given - Provider: Manish Chavez RN)1212 (Given - Provider: Manish Chavez, DES)1729 (Given - Provider: Manish Chavez, DES) latanoprost (XALATAN) 0.005 % ophthalmic solution 1 drop 1 drop, each eye, Nightly, First dose on Fri03/19/19 at 2100 2143 (Given - Provider: Christine Hameed RN) 2127 (Given - Provider: Christine Hameed RN) levothyroxine (SYNTHROID) tablet 25 mcg 25 mcg, oral, Daily (early AM), First dose on Fri03/20/19 at 0600, Administer on an empty stomach, preferably 30 minutes before breakfast. Take 4 hours apart from antacids, iron and calcium products. 0617 (Given - Provider: Jose Willis RN) 0637 (Given - Provider: Christine Hameed RN) 0700 (Given - Provider: Christine Hameed RN) metOLazone (ZAROXOLYN) tablet 2.5 mg 2.5 mg, oral, 2 times weekly (Once per day on Fri), First dose on Fri03/19/19 at 1815, Indications: friday and 0817 (Given - Provider: Manish Chavez RN) multivit onabxhaa-xlrg-AZ-calcium (THERA-M) tablet 1 tablet 1 tablet, oral, Daily, First dose on Fri03/20/19 at 0900, This therapy was substituted for multivitamin per protocol. 0824 (Given - Provider: Connie Britton RN) 0750 (Given - Provider: Connie Britton RN) 0815 (Given - Provider: Manish Chavez RN) oxybutynin XL (DITROPAN-XL) extended release tablet 10 mg 10 mg, oral, Daily, First dose on Fri03/19/19 at 2000, This therapy was substituted for Mirabegron 25mg daily per protocol. Do not crush, chew, cut, dissolve, open or otherwise manipulate tablet/capsule. 0814 (Given - Provider: Connie Britton RN) 0749 (Given - Provider: Connie Britton RN) 0815 (Given - Provider: Manish Chavez RN) potassium chloride ER (KLOR-CON) extended release tablet 20 mEq (COMPLETED) 20 mEq, oral, Once, On Fri03/22/19 at 0800, For 1 dose, Potassium chloride 20 meq orally in addition to Phos-Nak 1 packet orally X 3 doses today per electrolyte replacement protocol for potassium =3.1 and phosphorous = 2.1 on 03/22/19 Do not crush, chew, cut, dissolve, open or otherwise manipulate tablet/capsule. 1102 (Given - Provider: Manish Chavez RN) potassium chloride ER (KLOR-CON) extended release tablet 40 mEq 40 mEq, oral, Daily, First dose on Fri03/20/19 at 0900, Do not crush, chew, cut, dissolve, open or otherwise manipulate tablet/capsule. 0823 (Given - Provider: Connie Britton RN) 0750 (Given - Provider: Connie Britton RN) 0817 (Given - Provider: Manish Chavez RN) potassium chloride ER (KLOR-CON) extended release tablet 40 mEq () 40 mEq, oral, Every 4 hours, First dose on 03/20/19 at 0630, For 2 doses, Total dose = 80 mEq Do not crush, chew, cut, dissolve, open or otherwise manipulate tablet/capsule. 0617 (Given - Provider: Jose Willis RN)0916 (Not Given - Provider: Connie Britton RN - Reason: Other - Comment: per Dr. Cisneros) potassium chloride ER (KLOR-CON) extended release tablet 40 mEq (COMPLETED) 40 mEq, oral, Once, On 03/20/19 at 1615, For 1 dose, Do not crush, chew, cut, dissolve, open or otherwise manipulate tablet/capsule. 1554 (Given - Provider: Connie Britton RN) potassium chloride ER (KLOR-CON) extended release tablet 40 mEq (COMPLETED) 40 mEq, oral, Every 4 hours, First dose on 03/21/19 at 0315, For 2 doses, Total dose = 80 mEq Do not crush, chew, cut, dissolve, open or otherwise manipulate tablet/capsule. 0339 (Given - Provider: Christine Hameed RN)0637 (Given - Provider: Christine Hameed RN) potassium, sodium phosphates (PHOS-NAK) 280-160-250 mg packet 1 packet (COMPLETED) 1 packet, oral, 3 times daily, First dose on 03/20/19 at 0915, For 3 doses, X 3 doses today per electrolyte replacement protocol for phos =1.9 on 03/20 Each packet contains 250 mg elemental phosphorus., Indications: hypophosphatemia 0920 (Given - Provider: Connie Britton RN)1554 (Given - Provider: Connie Britton RN)2132 (Given - Provider: Christine Hameed RN) potassium, sodium phosphates (PHOS-NAK) 280-160-250 mg packet 1 packet (COMPLETED) 1 packet, oral, 3 times daily, First dose (after last reorder) on 03/21/19 at 0915, For 3 doses, X 3 doses today per electrolyte replacement protocol for phos =2.5 on 03/21 Each packet contains 250 mg elemental phosphorus., Indications: hypophosphatemia 0857 (Given - Provider: Connie Britton RN)1628 (Given - Provider: Connie Britton RN)2129 (Given - Provider: Christine Hameed RN) potassium, sodium phosphates (PHOS-NAK) 280-160-250 mg packet 1 packet (COMPLETED) 1 packet, oral, 3 times daily before meals, First dose on Fri03/22/19 at 0730, For 3 doses, Each packet contains 250 mg elemental phosphorus. Potassium chloride 20 meq orally in addition to Phos-Nak 1 packet orally X 3 doses today per electrolyte replacement protocol for potassium =3.1 and phosphorous = 2.1 on 03/22/19 0818 (Given - Provider: Manish Chavez RN)1104 (Given - Provider: Manish Chavez RN)1729 (Given - Provider: Manish Chavez, DES) rosuvastatin (CRESTOR) tablet 10 mg 10 mg, oral, Daily, First dose on Fri03/19/19 at 1815 0813 (Given - Provider: Connie Britton RN) 0822 (Given - Provider: Connie Britton RN) 0815 (Given - Provider: Manish Chavez, DES) verapamil SR (CALAN SR) extended release tablet 240 mg 240 mg, oral, Daily, First dose on Fri03/19/19 at 2000, This therapy was substituted for Verelan 240 mg daily per protocol. Tablets that are scored may be split, but do not crush, chew, dissolve, open or otherwise manipulate tablet/capsule. 0824 (Given - Provider: Connie Britton RN) 0822 (Given - Provider: Connie Britton RN) 0819 (Given - Provider: Manish Chavez RN) PRN Medication Order 03/20/2019 03/21/2019 03/22/2019 acetaminophen (TYLENOL) tablet 650 mg 650 mg, oral, Every 4 hours PRN, 1st line for pain, Starting on Fri03/19/19 at 1359, Indications: Pain 0618 (Given - Provider: Jose Willis RN)1557 (Given - Provider: Connie Britton RN) bisacodyl EC (DULCOLAX EC) tablet 10 mg 10 mg, oral, Daily PRN, constipation, If no results 24 hours after milk of magnesia, Starting on Fri03/19/19 at 1715, Do not crush, chew, cut, dissolve, open or otherwise manipulate tablet/capsule. dextrose (D10W) 10% bolus 250 mL(Linked Group 1) 250 mL, intravenous, at 1,000 mL/hr, Administer over 15 Minutes, Every 15 min PRN, blood glucose less than 70 mg/dL and UNABLE to swallow/take PO glucose/juice., Starting on Fri03/19/19 at 1714, After treatment for hypoglycemia, recheck BG followed [...] glucose less than 70 mg/dL, Starting on Fri03/19/19 at 1714, If patient is alert and able to [...] unable to take PO glucose/jiuce., Starting on Fri03/19/19 at 1714, After Glucagon is administered, position patient on [...] mL, oral, Daily PRN, constipation, Starting on Fri03/19/19 at 1715 mineral oil (FLEET MINERAL OIL) enema 1 enema 1 enema, rectal, Daily PRN, constipation, if no results 24 hours after bisacodyl, Starting on Fri03/19/19 at 1715, Indications: constipation ondansetron (ZOFRAN) injection 4 mg(Linked Group 2) 4 mg, intravenous, Administer over 2 Minutes, Every 6 hours PRN, nausea, vomiting, if not tolerating PO, Starting on Fri03/19/19 at 1359, Indications: Nausea and Vomiting ondansetron ODT (ZOFRAN-ODT) disintegrating tablet 4 mg(Linked Group 2) 4 mg, oral, Every 6 hours PRN, nausea, vomiting, Starting on Fri03/19/19 at 1359, Indications: Nausea and Vomiting polyvinyl alcohol (LIQUIFILM TEARS) 1.4 % ophthalmic solution 1 drop 1 drop, each eye, 4 times daily PRN, dry eyes, Starting on Fri03/19/19 at 1801, This therapy was substituted for systane eye drops per protocol. Linked Groups Order Group 1: dextrose gel in packet 15 gJump to med 15 g, oral, Every 15 min PRN, low blood sugar, blood glucose less than 70 mg/dL, Starting on Fri03/19/19 at 1714, If patient is alert and able to [...] UNABLE to swallow/take PO glucose/juice., Starting on Fri03/19/19 at 1714, After treatment for hypoglycemia, recheck BG followed by treatment every 15 minutes until the BG is greater than 100 mg/dL. Then check BG 1 hour post treatment. If BG is less than 100 mg/dL, repeat Q15 minute BG checks and treatment. Call MD for each episode of hypoglycemia., Indications: hypoglycemic disorder Group 2: ondansetron ODT (ZOFRAN-ODT) disintegrating tablet 4 mgJump to med 4 mg, oral, Every 6 hours PRN, nausea, vomiting, Starting on Fri03/19/19 at 1359, Indications: Nausea and Vomiting Or ondansetron (ZOFRAN) injection 4 mgJump to med 4 mg, intravenous, Administer over 2 Minutes, Every 6 hours PRN, nausea, vomiting, if not tolerating PO, Starting on Fri03/19/19 at 1359, Indications: Nausea and Vomiting documented in this encounter Orders Medications Ordered That Daryn ht Not Have Been Administered Count Last Ordered Date First Ordered Date potassium chloride ER (KLOR- CON) extended release tablet 20 mEq 1 03/21/2019 artificial tears (SYSTANE) 0 .3 % ophthalmic gel 1 drop 1 03/19/2019 bisacodyl EC (DULCOLAX EC) tablet 10 mg 1 1 05/19/2018 dextrose (D10W) 10% bolus 250 mL 1 03/19/20 19 dextrose gel in packet 15 g 1 03/19/2019 glucagon injection 1 mg 1 03/19/2019 magnesium hydroxide (MILK OF MAGNESIA) 80 mg/mL (33.3 mg/mL as elemental magnesium) oral suspension 30 mL 1 03/19/2019 mineral oil (FLEET MINERAL O [place]) enema 1 enema 1 03/19/2019 mirabegron ER (MYRBETRIQ) ex tended release tablet 25 mg 1 03/19/2019 multivitamin tablet 1 tablet 1 03/19/2019 ondansetron (ZOFRAN) injection 4 mg 1 03/19 ondansetron ODT (ZOFRAN-ODT) disintegrating tablet 4 mg 1 03/19/[address] (PROTONIX) e xtended release tablet 40 mg 1 03/19/2019 polyvinyl alcohol (LIQUIFILM TEARS) 1.4 % ophthalmic solution 1 drop 1 03/19/2019 verapamil ER (VERELAN) 24 ho ur capsule 240 mg 1 03/19/2019 Lab Orders Without Results Count Last Ordered D ate First Ordered Date POCT GLUCOSE DEVICE 5 03/21/2019 03/20/20 19 Diet Count Last Ordered Date First Orde red Date ADULT DISCHARGE DIET 1 03/22/2019 Nursing Count Last Ordered Date First Orde red Date DISCHARGE ACTIVITY 1 03/22/2019 DISCHARGE CALL PROVIDER 8 03/22/2019 DISCHARGE INSTRUCTIONS 2 03/22/2019 FOLLOW UP WITH PROVIDER 3 03/22/2019 Consult Count Last Ordered Date First Orde red Date IP CONSULT TO NEUROLOGY 1 03/19/2019 CORE MEASURES Count Last Ordered Date First Ord ered Date REASON FOR NO VTE PROPHYLAXIS AT ADMISSION 1 03/19/2019 ADT Patient Update Count Last Ordered Date Firs t Ordered Date ED IP DECISION TO ADMIT 1 03/19/2019 documented in this encounter Care Teams Assembly Machine Tender Relationship Specialty Start Date End Date Theresa Camargo MD PCP - General 09/29/18 12/05/22 Laz Valencia MD Consulting Physician Cardiology 03/22/19 12/05/22 documented as of this encounter
--- OUTSIDE RECORDS SUMMARY | 2024-05-26 13:01 | XMS_ITS | Encounter Summary ---
Author Organization [facility] Care Team Providers Care Limnology Teacher Name Role Phone Theresa Camargo MD Primary Care Provider [phone] Laz Valencia MD Unavailable [phone] Encounter Details Date Type Department Care Team (Latest Contact Info) Description 05/13/2019 Travel Social History Tobacco Use Types Packs/Day Years Used Date Smoking Tobacco: Never Smokeless Tobacco: Never Alcohol Use Standard Drinks/Week Comments No 0 (1 standard drink = 0.6 oz pur e alcohol) PHQ-2 Answer Date Recorded PHQ-2 Score 0 03/06/2019 Comments No Sex and Gender Information Value Date Recorded Sex Assigned at Not on file Legal Sex Female 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
--- OUTSIDE RECORDS SUMMARY | 2024-05-26 13:01 | XMS_ITS | Encounter Summary ---
Author Organization [facility] Medical Group Address [address] [place] [address] Care Team Providers Care Dope Worker Name Role Phone Theresa Camargo MD Primary Care Provider [phone] Laz Valencia MD Unavailable [phone] Reason for Visit * Reason Comments Atrial Fibrillation Follow-up Encounter Details Date Type Department Care Team (Late st Contact Info) Description 04/20/2019 11:45 AM FUR NAILER Office Visit [place] Defensive Line Coach [address] [facility] [address] [place] [address] Laz Valencia MD [address] [place] [address] [address] [place] [address] Hypokalemia (Primary Dx); Chronic diastolic congestive heart failure (CMS/HCC); Lymphedema of both lower extremities; PAF (paroxysmal atrial fibrillation) (CMS/HCC) Social History Tobacco Use Types Packs/Day Years Used Date Smoking Tobacco: Never Smokeless Tobacco: Never Alcohol Use Standard Drinks/Week Comments No 0 (1 standard drink = 0.6 oz pur e alcohol) PHQ-2 Answer Date Recorded PHQ-2 Score 0 03/06/2019 Comments No Sex and Gender Information Value Date Recorded Sex Assigned at Not on file Legal Sex Female 6:56 PM FUR NAILER Gender Identity Not on file Sexual Orientation Not on file documented as of this encounter Last Filed Vital Signs Vital Sign Reading Time Taken Comments Blood Pressure 98/57 04/20/2019 12:12 PM FUR NAILER Pulse 70 04/20/2019 12:12 PM FUR NAILER Temperature - - Respiratory Rate 18 04/20/2019 12:12 PM FUR NAILER Oxygen Saturation - - Inhaled Oxygen Concentration - - Weight 78.5 kg (173 lb) 04/20/2019 12:12 PM FUR NAILER Height 165.1 cm (5' 5 ) 04/20/2019 12:12 PM FUR NAILER Body Mass Index 28.79 04/20/2019 12:12 PM FUR NAILER documented in this encounter Ordered Prescriptions Prescription Sig Dispense Quantity Refills Last Filled Start Date End Date spironolactone (ALDACTONE) 25 mg tablet Take 1 tablet (25 mg total) by mouth daily 30 tablet 11 04/20/2019 9 verapamil ER (VERELAN) 120 mg 24 hr capsule Take 1 capsule (120 mg total) by mouth nightly 30 capsule 11 04/20/2019 0 furosemide (LASIX) 40 mg tablet Take 1 tablet (40 mg total) by mouth daily 30 tablet 11 04/20/2019 0 documented in this encounter Progress Notes * Laz Valencia MD - 04/20/2019 11:45 AM CST Cardiology note Reason for Office Visit: CC: Patient is presenting for a follow up visit for a-fib, CAD History of Present Illness: Perla Leon is a 78 y.o. female who presents to the office for a -fib . CAD Patient has had a cath in 2010 showing intermediate CAD normal LV , physiologic lesion assessment of the left anterior descending showing insignificant stenosis. Patient was in [place] 10/2015 went to [facility] had chest pain and nausea and found [...] on her TSH with Dr. Javed at [facility] for a low thyroid but improved and will monitor it. patient had episode of diarhea and became dehydrated she questionsed whether she had a-fib for she had an episode of chest pain. Was taken to [facility] for hypotension and at one point had pulse of 40 related to vagal response they believed. troponins were negative and patient went home on cardionet monitor not yielding any results other than sinus rhythm. Patient increase in weight- patient admits to not taking her lasix for last 2 days due to activity and not wanting to have to stop for the restroom. we discussed medicines and monitoring heartrate- the difference between a regular pulse and regularlly irregular. Patient and stated understanding. Daughter here too. Patient denies chest pain since that time, sob, palpitations and walks with walker.Patient still walks with walker and forgets names of things but not a new occurence. patient had a series of test done with changing PMD and due to elevated d- dimer had a ct that was negative for pulmonary embolism. Patient on 12/28/2016 went to ER for unable to lift her left leg. She had been on vaction and supposed to use machine for lymph edema. Patient did not take her diurtetics faithfully during her trip and hadincrease edema. Her 2 day neuro work up was negative. but patient still has increase edema in her legs. Was admitted 02/2019 for fluid overload and hypokalemia. Then at rehab for a time- now at home withau gres care. Patient weight is down 24 pounds at 173 lbs lbs . Patient walks with walker.using compression stockings. Walks with walker Weight: 201 lbs Review of Systems: Review of Systems Constitution: Positive for malaise/fatigue. Negative for decreased appetite, weight gain and weightloss. HENT: Negative for ear discharge, hearing loss and nosebleeds. Eyes: Negative for blurred vision and visual disturbance. Cardiovascular: Positive for leg swelling. Negative for chest pain, claudication, dyspnea on exertion, irregular heartbeat, near-syncope, palpitations, paroxysmal nocturnal dyspnea and syncope. Respiratory: Negative for cough, shortness of breath, sleep disturbances due to breathing, snoring and wheezing. Hematologic/Lymphatic: Negative for bleeding problem. Does not bruise/bleed easily. Skin: Negative for color change and poor wound healing. Musculoskeletal: Negative for back pain and myalgias. Gastrointestinal: Negative for bloating, heartburn and nausea. Genitourinary: Negative for hematuria. Neurological: Negative for excessive daytime sleepiness, dizziness, headaches, light-headedness, loss of balance and tremors. Psychiatric/Behavioral: Negative for altered mental status, depression and memory loss. Histories: Past Medical History: Diagnosis Date ??? Anemia [...] mcg tablet Take 25 mcg by mouth coater operator before breakfast ??? menthol-zinc oxide (CALMOSEPTINE) 0.44-20.6 [...] for this visit. Vital Signs: Vitals BP 98/57 (BP Location: Right arm, Patient Position: Sitting) Pulse 70 Resp 18 Ht 165.1 cm (5' 5 ) Wt 78.5 kg (173 lb) BMI 28.79 kg/m?? Vitals: 04/20/19 1212 BP: 98/57 Pulse: 70 Resp: 18 Wt Readings from Last 3 Encounters: 04/20/19 78.5 kg (173 lb) 03/19/19 83 kg (182 lb 15.7 oz) 03/06/19 87.8 kg (193 lb 9 oz) Body mass index is 28.79 kg/m??. Physical Exam: Physical Exam Constitutional: She is oriented to person, place, and time. She appears well- developed and well-nourished. No distress. HENT: Mouth/Throat: No oropharyngeal exudate. Eyes: Pupils are equal, round, and reactive to light. Conjunctivae are normal. Neck: No JVD present. Carotid bruit is not present. No tracheal deviation present. Cardiovascular: Normal rate, regular rhythm, S1 normal, S2 normal and intact distal pulses. Exam reveals no gallop and no decreased pulses. Murmur heard. Pulmonary/Chest: Effort normal. She has no decreased breath sounds. She has no wheezes. She has no rhonchi. She has no rales. Abdominal: Soft. Normal appearance and bowel sounds are normal. Neurological: She is alert and oriented to person, place, and time. Skin: Skin is warm and dry. She is not diaphoretic. Labs: Lab Results Component Value Date INR 1.11 03/19/2019 INR 1.14 09/29/2018 INR 1.01 09/30/2017 Lab Results Component Value Date PT 12.5 03/19/2019 PT 12.9 09/29/2018 PT 11.4 09/30/2017 Lab Results Component Value Date TSH 4.34 (H) 03/08/2019 FREET4 1.01 03/08/2019 Lab Results Component Value Date BILIRUBINU Negative 06/14/2016 AST 29 03/19/2019 ALT 30 03/19/2019 ALKPHOS 104 03/19/2019 ALBUMIN 3.0 (L) 03/22/2019 Lab Results Component Value Date SODIUM 139 03/22/2019 POTASSIUM 3.1 (L) 03/22/2019 CHLORIDE 100 03/22/2019 CO2 27 03/22/2019 ANIONGAP 12 03/22/2019 GLUCOSEUR 3+ (A) 03/06/2019 Lab Results Component Value Date BNP 14 08/30/2015 Lab Results Component Value Date SODIUM 139 03/22/2019 SODIUM 139 03/21/2019 SODIUM 140 03/20/2019 POTASSIUM 3.1 (L) 03/22/2019 POTASSIUM 3.3 03/21/2019 POTASSIUM 3.3 03/21/2019 CHLORIDE 100 03/22/2019 CHLORIDE 99 03/21/2019 CHLORIDE 100 03/20/2019 CO2 27 03/22/2019 CO2 31 03/21/2019 CO2 29 03/20/2019 BUNSER 13 03/22/2019 BUNSER 15 03/21/2019 BUNSER 17 03/20/2019 CREATININE 0.57 (L) 03/22/2019 CREATININE 0.57 (L) 03/21/2019 CREATININE 0.55 (L) 03/20/2019 GFRNAA 88 03/22/2019 GFRNAA 88 03/21/2019 GFRNAA 89 03/20/2019 GLUCOSE 186 (H) 03/22/2019 CALCIUM 9.1 03/22/2019 CALCIUM 9.8 03/21/2019 CALCIUM 10.4 (H) 03/20/2019 ALBUMIN 3.0 (L) 03/22/2019 ALBUMIN 3.2 (L) 03/21/2019 ALBUMIN 3.5 03/20/2019 PHOS 2.1 (L) 03/22/2019 PHOS 2.5 03/21/2019 PHOS 1.9 (L) 03/20/2019 Lab Results Component Value Date SODIUM 139 03/22/2019 POTASSIUM 3.1 (L) 03/22/2019 CHLORIDE 100 03/22/2019 CO2 27 03/22/2019 ANIONGAP 12 03/22/2019 BUNSER 13 03/22/2019 CREATININE 0.57 (L) 03/22/2019 GLUCOSE 186 (H) 03/22/2019 CALCIUM 9.1 03/22/2019 BILITOT 0.5 03/19/2019 PROT 6.4 (L) 03/19/2019 ALBUMIN 3.0 (L) 03/22/2019 ALKPHOS 104 03/19/2019 ALT 30 03/19/2019 AST 29 03/19/2019 Lab Results Component Value Date WBC 10.8 (H) 03/20/2019 HGB 12.2 03/20/2019 HCT 37.8 03/20/2019 LABPLAT 333 03/20/2019 MPV 10.6 03/20/2019 RBC 4.49 03/20/2019 MCV 84.2 03/20/2019 MCH 27.2 03/20/2019 MCHC 32.3 03/20/2019 RDWCV 16.0 (H) 03/20/2019 RDWSD 48.8 (H) 03/20/2019 NRBCABS 0.00 03/20/2019 Lab Results Component Value Date CHOL 112 [...] 02/2018 labs : CR 0.8, K 4.0 BNP 58 EK12/12/2015 SR with PRWP 01/2016 Cardionet -negative. EKG in 01/2016 showed nSR, QTc 450 msec 02/12/2016 cardionet SR with 1st degree av block. SR borderline left axis deviation EKG in 12/2016 showed NSR, LAD , QRS duration 100 EKG in 03/2018 showed SR , moderate IVCD Diagnoses and Plan Assessment: 1 a-fib, paroxysmal , first episode in 2015 on plavix and ASA. Omar 2 score 5.cardionet in 12/2015 was negative for A fib . Cardionet 01/2016 no clinical recurrence of AF. episode of AF in 2018 . 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 Moran 6- chronic consitpation Chronic diastolic congestive heart failure [I50.32] Localized Edema [R60.0] Paroxysmal atrial fibrillation [I48.0] Atherosclerotic heart disease of [place] coronary artery without angina pectoris [I25.10] CATY [G47.33] Plan: Decrease verapamil ER 120 mg po daily ,increase spirolactone 25 mg po daily Continue metolazone 2.5 mg po twice a week Decrease to Furosamide 40 mg - hold if BP <100 systolic Continue tight control of blood pressure and cholesterol. BP diary and pulse and daily weights Continue diet, and weight reduction. daily weight Use Leg pumps routinely MG+, BMP/ BNP in 2 weeks RTC in 6 months Diagnoses and all orders for this visit: Hypokalemia (Primary) Chronic diastolic congestive heart failure (CMS/HCC) Lymphedema of both lower extremities PAF (paroxysmal atrial fibrillation) (CMS/HCC) Return in about 6 months (around 10/20/2019). 04/20/2019 12:45 PM Laz Valencia MD Cc:Theresa Camargo MD NAILER documented in this encounter Plan of Treatment Not on file documented as of this encounter Visit Diagnoses Diagnosis Hypokalemia- Primary Hypopotassemia Chronic diastolic congestive heart failure (CMS/HCC) (HCC) Lymphedema of both lower extremities PAF (paroxysmal atrial fibrillation) (CMS/HCC) (HCC) Atrial fibrillation documented in this encounter Discontinued Medications Medication Sig Discontinue Reason Start Date End Da te amitriptyline (ELAVIL) 50 mg tablet Take 50 mg by mouth daily with dinner Other 04/20/2019 mirabegron ER (MYRBETRIQ) 25 mg tablet extended release 24 hr 25 mg daily Patient no longer under prescriber care 04/20/2019 verapamil ER (VERELAN) 240 mg 24 hr capsule take 1 capsule by oral route every day Alternate therapy 07/01/2016 04/20/2019 furosemide (LASIX) 40 mg tabletIndications:Carlos a Take 1.5 tablets (60 mg total) by mouth daily Alternate therapy 03/22/2019 04/20/2019 documented as of this encounter Historical Medications * This list may reflect changes made after this encounter. amoxicillin-clav ulanate (AUGMENTIN) 875-125 mg per tablet 04/19/2019 05/13/2019 amitriptyline (ELAVIL) 25 mg tabletIndication s:Neuropathic Pain Take 50 mg by mouth nightly 03/31/2019 12/06/2022 nystatin powder APPLY TO AFFECTED AREA TWICE A DAY 0 04/12/2019 05/13/2019 fluconazole (DIFLUCAN) 150 mg tablet TAKE 1 TABLET BY MOUTH ONCE A WEEK FOR 4 WEEKS. 0 04/12/2019 05/13/2019 glimepiride (AMARYL) 1 mg tablet TAKE 1 TABLET (1 MG) BY MOUTH 3 TIMES DAILY. 2 04/14/2019 12/21/2020 FREESTYLE LITE STRIPS strip TEST BLOOD SUGARS TWICE A DAY DX E11.9.. 1 03/23/2019 12/21/2020 added in this encounter Care Teams Dope Worker Relationship Specialty Start Date End Date Theresa Camargo MD PCP - General 09/29/18 12/05/22 Laz Valencia MD Consulting Physician Cardiology 03/22/19 12/05/22 documented as of this encounter
--- OUTSIDE RECORDS SUMMARY | 2024-05-26 13:01 | XMS_ITS | Encounter Summary ---
Author Organization [facility] Healthcare Address [address] [place] [address] Care Team Providers Care Formal Service Waiter Name Role Phone Theresa Camargo MD Primary Care Provider [phone] Laz Valencia MD Unavailable Migue Herman MD Unavailable [phone] Sonny Palmer MD Unavailable [phone] Elizabeth Car MD Primary Care Provider Encounter Details Date Type Department Care Team (Late st Contact Info) Description 08/01/2020 Telephone [facility] [address] [place] [address] Rosa Espinoza, RT Social History Tobacco Use Types Packs/Day Years Used Date Smoking Tobacco: Never Smokeless Tobacco: Never Alcohol Use Standard Drinks/Week Comments No 0 (1 standard drink = 0.6 oz pur e alcohol) PHQ-2 Answer Date Recorded PHQ-2 Score 0 03/06/2019 Comments No Sex and Gender Information Value Date Recorded Sex Assigned at Not on file Legal Sex Female 6:56 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 Gender Identity Not on file Sexual Orientation Not on file documented as of this encounter Plan of Treatment Not on file documented as of this encounter Visit Diagnoses Not on filedocumented in this encounter Additional Health Concerns Infection Onset Date Last Indicated Resolved Time COVID: Suspected 12/20/2020 12/20/2020 12/20/2020 6:55 PM CDT documented as of this encounter Care Teams Formal Service Waiter Relationship Specialty Start Date End Date Theresa Camargo MD PCP - General 09/29/18 12/05/22 Elizabeth Car MD [address] [facility] [address] [place] [address] PCP - General Family Medicine 12/06/22 Laz Valencia MD Consulting Physician Cardiology 03/22/19 12/05/22 Migue Herman MD Consulting Physician Urology 05/16/19 Sonny Palmer MD Surgeon General Surgery 05/16/19 documented as of this encounter
--- OUTSIDE RECORDS SUMMARY | 2024-05-26 13:01 | XMS_ITS | Encounter Summary ---
Author Organization [facility] Medical Group Address [address] [place] [address] Care Team Providers Care Sales Account Executive Name Role Phone Theresa Camargo MD Primary Care Provider Laz Valencia MD Unavailable [phone] Migue Herman MD Unavailable [phone] Sonny Palmer MD Unavailable [phone] Reason for Visit * Reason Comments Congestive Heart Failure Coronary Artery Disease Encounter Details Date Type Department Care Team (Late st Contact Info) Description 10/25/2019 1:30 PM CDT Office Visit [place] [facility] [address] [place] [address] aLz Valencia MD [address] [place] [address] [address] [place] [address] Chronic diastolic congestive heart failure (CMS/HCC) (Primary Dx); Chronic ischemic heart disease; PAF (paroxysmal atrial fibrillation) (CMS/HCC); Pure hypercholesterolemia ; CATY on CPAP Social History Tobacco Use Types Packs/Day Years Used Date Smoking Tobacco: Never Smokeless Tobacco: Never Alcohol Use Standard Drinks/Week Comments No 0 (1 standard drink = 0.6 oz pur e alcohol) PHQ-2 Answer Date Recorded PHQ-2 Score 0 03/06/2019 Comments No Sex and Gender Information Value Date Recorded Sex Assigned at Not on file Legal Sex Female 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 Gender Identity Not on file Sexual Orientation Not on file documented as of this encounter Last Filed Vital Signs Vital Sign Reading Time Taken Comments Blood Pressure 111/64 10/25/2019 12:45 PM CDT Pulse 77 10/25/2019 12:45 PM CDT Temperature 36.3 ??C (97.4 ??F) 10/25/2019 12:45 PM C DT Respiratory Rate 18 10/25/2019 12:45 PM CDT Oxygen Saturation - - Inhaled Oxygen Concentration - - Weight - - Height 165.1 cm (5' 5 ) 10/25/2019 12:45 PM CDT Body Mass Index - - documented in this encounter Progress Notes * Laz Valencia MD - 10/25/2019 1:30 PM CDT Cardiology note Reason for Office [...] descending showing insignificant stenosis. Patient was in [place] 10/2015 went to [facility] had chest pain and nausea and found [...] on her TSH with Dr. Javed at [facility] for a low thyroid but improved and [...] [facility]hab [facility] a time- [facility]. Dizziness and trouble with balance in september 2019. Pulse regular. October 2019 on antibioitcs for cellulitis left foot. . Patient denies chest pain since that time, sob, palpitations ..Patient still walks with walker and forgets names of things but not a new occurence. patient had a series of test done with changing PMD and due to elevated d- dimer had a ct that was negative for pulmonary embolism. Patient weight is down 24 pounds at 173 lbs .using compression stockings. Weight: 201 lbs Review of Systems: Review [...] mcg tablet Take 25 mcg by mouth web applications architect before breakfast ??? menthol-zinc oxide (CALMOSEPTINE) 0.44-20.6 [...] for this visit. Vital Signs: Vitals BP 111/64 (BP Location: Left arm, Patient Position: Sitting) Pulse 77 Temp 36.3 ??C (97.4 ??F) Resp 18 Ht 165.1 cm (5' 5 ) BMI 29.95 kg/m?? Vitals: 10/25/19 1245 BP: 111/64 Pulse: 77 Resp: 18 Temp: 36.3 ??C (97.4 ??F) Wt Readings from Last 3 Encounters: 06/13/19 81.6 kg (180 lb) 05/13/19 80.8 kg (178 lb 3.2 oz) 04/20/19 78.5 kg (173 lb) Body mass index is 29.95 kg/m??. Physical Exam: Physical Exam Constitutional: She [...] warm and dry. She is not diaphoretic. Compression stockings in use. Cellulitic changes with venous stasis Labs: Lab Results Component Value Date INR 1.11 03/19/2019 INR 1.14 09/29/2018 INR 1.01 09/30/2017 Lab Results Component Value Date PT 12.5 03/19/2019 PT 12.9 09/29/2018 PT 11.4 09/30/2017 Lab Results Component Value Date TSH 4.34 (H) 03/08/2019 FREET4 1.01 03/08/2019 Lab Results Component Value Date BILIRUBINU Negative 06/14/2016 AST 18 05/16/2019 ALT 23 05/16/2019 ALKPHOS 80 05/16/2019 ALBUMIN 3.1 (L) 05/16/2019 Lab Results Component Value Date SODIUM 139 08/27/2019 POTASSIUM 3.9 06/13/2019 CHLORIDE 98 08/27/2019 CO2 29 08/27/2019 ANIONGAP 13 08/27/2019 GLUCOSEUR 2+ (A) 06/13/2019 Lab Results Component Value Date BNP 14 08/30/2015 Lab Results Component Value Date SODIUM 139 08/27/2019 SODIUM 139 06/13/2019 SODIUM 141 05/16/2019 POTASSIUM 3.9 06/13/2019 POTASSIUM 4.2 05/16/2019 POTASSIUM 3.7 05/15/2019 CHLORIDE 98 08/27/2019 CHLORIDE 99 06/13/2019 CHLORIDE 109 05/16/2019 CO2 29 08/27/2019 CO2 29 06/13/2019 CO2 22 05/16/2019 BUNSER 27 (H) 08/27/2019 BUNSER 22 06/13/2019 BUNSER 12 05/16/2019 CREATININE 0.86 08/27/2019 CREATININE 0.88 06/13/2019 CREATININE 0.68 05/16/2019 GFRNAA 64 08/27/2019 GFRNAA 62 06/13/2019 GFRNAA 83 05/16/2019 GLUCOSE 156 08/27/2019 CALCIUM 11.0 (H) 08/27/2019 CALCIUM 10.6 (H) 06/13/2019 CALCIUM 8.9 05/16/2019 ALBUMIN 3.1 (L) 05/16/2019 ALBUMIN 3.5 05/15/2019 ALBUMIN 3.3 (L) 05/14/2019 PHOS 2.2 (L) 05/16/2019 PHOS 1.9 (L) 05/15/2019 PHOS 2.1 (L) 03/22/2019 Lab Results Component Value Date SODIUM 139 08/27/2019 POTASSIUM 3.9 06/13/2019 CHLORIDE 98 08/27/2019 CO2 29 08/27/2019 ANIONGAP 13 08/27/2019 BUNSER 27 (H) 08/27/2019 CREATININE 0.86 08/27/2019 GLUCOSE 156 08/27/2019 CALCIUM 11.0 (H) 08/27/2019 BILITOT 0.3 05/16/2019 PROT 6.1 (L) 05/16/2019 ALBUMIN 3.1 (L) 05/16/2019 ALKPHOS 80 05/16/2019 ALT 23 05/16/2019 AST 18 05/16/2019 Lab Results Component Value Date WBC 8.7 05/16/2019 HGB 12.2 05/16/2019 HCT 39.3 05/16/2019 LABPLAT 324 05/16/2019 MPV 10.2 05/16/2019 RBC 4.66 05/16/2019 MCV 84.3 05/16/2019 MCH 26.2 (L) 05/16/2019 MCHC 31.0 (L) 05/16/2019 RDWCV 16.6 (H) 05/16/2019 RDWSD 50.6 (H) 05/16/2019 NRBCABS 0.00 05/16/2019 Lab Results Component Value Date CHOL 112 [...] fully compliant- seeing Dr. Moran 6- chronic consitpation Chronic diastolic congestive heart failure [I50.32] Localized Edema [R60.0] Paroxysmal atrial fibrillation [I48.0] Atherosclerotic heart disease of lummi coronary artery without angina pectoris [I25.10] CATY [G47.33] Plan: Same meds Continue tight control of blood pressure and cholesterol. BP diary and pulse and daily weights Continue diet, and weight reduction. daily weight Need to Use Leg pumps routinely. Leg elevation And compression stocking BMP/ BNP RTC in 6 months Diagnoses and all orders for this visit: Chronic diastolic congestive heart failure (CMS/HCC) (Primary) Chronic ischemic heart disease PAF (paroxysmal atrial fibrillation) (CMS/HCC) Pure hypercholesterolemia CATY on CPAP Return in about 6 months (around 04/25/2020). 10/25/2019 @ 12:51 PM Laz Valencia MD Cc:Theresa Camargo MD documented in this encounter Miscellaneous Notes * Addendum Note - Jodi Monique MA - 10/25/2019 1:30 PM CDTAddended by: JODI MONIQUE on: 10/25/2019 01:08 PM Modules accepted: Orders documented in this encounter Plan of Treatment Not on file documented as of this encounter Results * Magnesium (10/25/2019 1:42 PM CDT) Magnesium 2.2 1.4 - 2.5 mg/dL [facility] ([place]) Blood specimen (specimen) 10/25/2019 1:42 PM CDT 10/25/2019 2:35 PM CDT Laz Valencia MD LAB BLOOD ORDERABLES Final Resu lt [facility] ([place]) [address] [facility] [place] [address] * Pro B-type natriuretic peptide (10/25/2019 1:42 PM CDT) NT-proBNP 78 <=450 pg/mL [facility] ([place]) Comment: Interpretive [...] Last Revised Date: 2018. Blood specimen (specimen) 10/25/2019 1:42 PM CDT 10/25/2019 2:35 PM CDT us Laz Valencia MD LAB BLOOD ORDERABLES Final Resu lt [facility] ([place]) [address] [facility] [place] [address] * (ABNORMAL) Basic metabolic panel (10/25/2019 1:42 PM CDT) Sodium 137 135 - 145 mmol/L [facility] ([place]) Potassium, pl 3.9 3.3 - 4.9 mmol/L [facility] ([place]) Chloride 99 97 - 110 mmol/L [facility]) CO2 24 22 - 32 mmol/L [facility] ([place]) Anion gap 14 2 - 15 mmol/L [facility] ([place]) BUN 25 8 - 25 mg/dL [facility] ([place]) Creatinine 1.14(H) 0.60 - 1.10 mg/dL [facility] ([place]) Glucose 126 70 - 199 mg/dL [facility] ([place]) Comment: Interpretive Data Fasting glucose >/= [...] interpretive data was last revised 2017. Calcium 11.5(H) 8.5 - 10.3 mg/dL [facility] ([place]) Blood specimen (specimen) 10/25/2019 1:42 PM CDT 10/25/2019 2:35 PM CDT us Laz Valencia MD LAB BLOOD ORDERABLES Final Resu lt [facility] ([place]) [address] [facility] [place] [address] documented in this encounter Visit Diagnoses Diagnosis Chronic diastolic congestive heart failure (CMS/HCC) (HCC)- Primary Chronic ischemic heart disease Unspecified chronic ischemic heart disease PAF (paroxysmal atrial fibrillation) (CMS/HCC) (HCC) Atrial fibrillation Pure hypercholesterolemia CATY on CPAP documented in this encounter Historical Medications * This list may reflect changes made after this encounter. Medication Sig Dispense Quantity Refills Last Filled Start D ate End Date Invokana 100 mg tablet 07/21/2019 12/21/2020 added in this encounter Care Teams Sales Account Executive Relationship Specialty Start Date End Date Theresa Camargo MD PCP - General 09/29/18 12/05/22 Laz Valencia MD Consulting Physician Cardiology 03/22/19 12/05/22 Migue Herman MD Consulting Physician Urology 05/16/19 Sonny Palmer MD Surgeon General Surgery 05/16/19 documented as of this encounter
--- OUTSIDE RECORDS SUMMARY | 2024-05-26 13:01 | XMS_ITS | Encounter Summary ---
Author Organization [facility] Medical Group Address [address] [place] [address] Care Team Providers Care Diesel Plant Operator Name Role Phone Theresa Camargo MD Primary Care Provider Laz Valencia MD Unavailable [phone] Migue Herman MD Unavailable [phone] Sonny Palmer MD Unavailable [phone] Encounter Details Date Type Department Care Team (Late st Contact Info) Description 03/27/2020 Telephone [employer] Shift Manager [address] [place] [address] [place] [id number] Brandon Briones MA Social History Tobacco Use Types Packs/Day Years Used Date Smoking Tobacco: Never Smokeless Tobacco: Never Alcohol Use Standard Drinks/Week Comments No 0 (1 standard drink = 0.6 oz pur e alcohol) PHQ-2 Answer Date Recorded PHQ-2 Score 0 03/06/2019 Comments No Sex and Gender Information Value Date Recorded Sex Assigned at Not on file 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 Valencia response. [facility] to call back with any questions or concerns. ER HELPER * Telephone Encounter - Laz Valencia MD - 03/27/2020 4:21 PM CST Vital signs are stable. Unlikely to be cause of her symptoms. Continue to monitor ER HELPER * Telephone Encounter - Brandon Briones MA - 03/27/2020 2:33 PM CST Home health called stating patient has c/o nausea and lightheaded. States vitals are fine at 132/64p 80 temp 97.5 96% room air. Please advise. ER HELPER documented in this encounter Plan of Treatment Not on file documented as of this encounter Visit Diagnoses Not on filedocumented in this encounter Care Teams Diesel Plant Operator Relationship Specialty Start Date End Date Theresa Camargo MD PCP - General 09/29/18 12/05/22 Laz Valencia MD Consulting Physician Cardiology 03/22/19 12/05/22 Migue Herman MD Consulting Physician Urology 05/16/19 Sonny Palmer MD Surgeon General Surgery 05/16/19 documented as of this encounter
--- OUTSIDE RECORDS SUMMARY | 2024-05-26 13:01 | XMS_ITS | Encounter Summary ---
Author Organization [facility] Address [address] [place] [address] Care Team Providers Care Pilot Boat Captain Name Role Phone Theresa Camargo MD Primary Care Provider [phone] Laz Valencia MD Unavailable [phone] Migue Herman MD Unavailable [phone] Sonny Palmer MD Unavailable [phone] Reason for Referral * Diagnostic Imaging (Routine) - Closed Specialty Diagnoses / [facility] Radiology Diagnoses Hematuria, unspecified type Procedures CT KUB Stone WO Contrast Sonny Keene MD Phone: tel: fax: [address] [address] Referral ID Status Reason Start Date Expiration Date Visits Re quested Visits Authorized [id number] Closed 07/10/2020 08/09/2021 1 1 ERTY MANAGEMENT SUPERVISOR Reason for Visit * Diagnostic Imaging (Routine) - Closed Specialty Diagnoses / Procedures [facility] Radiology Diagnoses Hematuria, unspecified type Procedures CT KUB Stone WO Contrast Sonny Keene MD Phone: tel: fax: [address] [address] Referral ID Status Reason Start Date Expiration Date Visits Re quested Visits Authorized [id number] Closed 07/10/2020 08/09/2021 1 1 Encounter Details Date Type Department Care Team (Late st Contact Info) Description 07/22/2020 7:49 AM PROPERTY MANAGEMENT SUPERVISOR - 07/22/2020 11:59 PM PROPERTY MANAGEMENT SUPERVISOR Hospital Encounter [facility] [address] [place] [address] Sonny Keene MD [address] [place] [address] Hematuria, unspecified type Discharge Disposition: Discharge to home or [...] on file Legal Sex Female 6:56 PM PROPERTY 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 2 04/14/2019 1 Invokana 100 mg tablet 07/21/2019 1 latanoprost (XALATAN) 0.005 % ophthalmic solution instill 1 drop by ophthalmic route every day into affected eye(s) in the evening 0 0 07/01/2016 1 levothyroxine (SYNTHROID) 25 mcg tablet Take 25 mcg by mouth emergency room clinician before breakfast 1 menthol-zinc oxide (CALMOSEPTINE) 0.44-20.6 % ointment PRN 0 0 07/01/2016 1 metOLazone (ZAROXOLYN) 2.5 mg tabletIndications:m and TAKE 1 TABLET (2.5 MG TOTAL) BY MOUTH 2 (TWO) TIMES A WEEK 8 tablet 3 07/17/2020 1 multivitamin (ONCE DAILY) tablet tablet take [...] 04/04/2020 1 documented as of this encounter Discharge Disposition Disposition Code Departure Means Destination Discharge to home or self care documented in this encounter Plan of Treatment Not on file documented as of this encounter Procedures Procedure Name Priority Date/Time Associated Diagnosis Comments CT KUB STONE WO CONTRAST Schedule Routine, Read Routine (OP Routine) 07/22/2020 8:21 AM PROPERTY MANAGEMENT SUPERVISOR Hematuria, unspecified type documented in this encounter Results * CT KUB Stone WO Contrast (07/22/2020 8:21 AM PROPERTY MANAGEMENT SUPERVISOR) Anatomical Region Laterality Modality Abdomen N/A Computed Tomogra phy 07/22/2020 8:03 AM PROPERTY MANAGEMENT SUPERVISOR Narrative 07/22/2020 7:21 PM PROPERTY MANAGEMENT SUPERVISOR [facility] ?Imaging Result Name: LOC ANDERSON ?Ordering Phys: SONNY KEENE Age: 79 ?Date of : 1940 ? Accession Number: [id number] Date of Service: 07/22/2020 ??Gender: F EXAM DESCRIPTION: ?? CT KUB STONE WO CONTRAST REASON FOR STUDY: ?? Gross hematuria a couple weeks ago. ??Pt has a catheter in, is stating that it is not draining today as it normally does. ??Pt not complaining of any pain or hematuria presently. ??Hx of cholecystectomy, appendectomy, and hysterectomy. Duration: 2 weeks TECHNIQUE: ??CT scan of the abdomen and pelvis performed without intravenous and ??without oral contrast using helical scanning technique. Reconstructed coronal and sagittal MPR images reviewed. All images stored on PACS. Automated exposure control was used as a dose optimization technique for this examination. COMPARISON: ??03/13/2019. ??The sensitivity for detection of visceral lesions is diminished without the use of intravenous contrast. LOWER CHEST: ??Lung bases are predominantly clear. ??No pleural effusion. LIVER: ??No focal hepatic lesions are seen. GALLBLADDER: ??Gallbladder is surgically absent. BILE DUCTS: ??No biliary ductal dilation. SPLEEN: ??Spleen size is normal. ??Granulomatous calcification is seen. PANCREAS: ??No pancreatic mass or inflammatory change. ADRENALS: ??Normal KIDNEYS/URINARY TRACT: ??No renal calculi or hydronephrosis. ??No ureteral calculi. ??There is a Schmitt catheter which is present in the urinary bladder. There is no obvious abnormality by noncontrast CT. GI: ??There is a large amount of fecal material in the colon. ??The terminal ileum is normal. ??The appendix is not specifically seen, by history this is surgically absent. ??There is no bowel obstruction. ??There is a small bowel containing right inguinal hernia which also contains fat without complication or obstruction. PERITONEUM: ??No ascites or free air is seen. ??No mesenteric mass or lymphadenopathy is seen. RETROPERITONEUM: ??No retroperitoneal mass or lymphadenopathy. REPRODUCTIVE: ??Status post hysterectomy. ??No significant abnormalities are identified. VASCULATURE: ??Abdominal aorta is nonaneurysmal. ??There is mild atheromatous calcification of the abdominal aorta. MUSCULOSKELETAL: ??Bone windows demonstrate no acute or aggressive osseous abnormality. ??There is a levocurvature of the lumbar spine with degenerative changes. ??No aggressive osseous lesion is seen. OTHER: ??No other abnormality. IMPRESSION: 1. ??No evidence of an acute abnormality or finding to explain hematuria. Schmitt catheter is noted. 2. ??Large amount of fecal material the colon evidence of constipation. 3. ??Postsurgical changes as detailed above including cholecystectomy, history of appendectomy and hysterectomy. THIS IS AN ELECTRONICALLY VERIFIED FINAL REPORT 07/22/2020 7:17 PM - Electronically signed by Ralf Quinones M.D. CH: D: ??07/22/2020 7:17 PM T: ??07/22/2020 7:17 PM Report ID: [id number] Reading Location: ??[id number] Procedure Note Ralf Quinones Jr., MD - 07/22/2020 [facility] Imaging Result Name: LOC ANDERSON Ordering Phys: SONNY JASSI Age: 79 Date of : 1940 Accession Number: [id number] Date of Service: 07/22/2020 Gender: F EXAM DESCRIPTION: CT KUB STONE WO CONTRAST REASON FOR STUDY: Gross hematuria a couple weeks ago. Pt has a catheterin, is stating that it is not draining today as it normally does. Pt not complaining of any pain or hematuria presently. Hx of cholecystectomy, appendectomy, and hysterectomy. Duration: 2 weeks TECHNIQUE: CT scan of the abdomen and pelvis performed withoutintravenous and without oral contrast using helical scanning technique.Reconstructed coronal and sagittal MPR images reviewed. All images stored on PACS. Automated exposure control was used as a dose optimization technique forthis examination. COMPARISON: 03/13/2019. The sensitivity for detection of visceral lesions is diminished without the use of intravenous contrast. LOWER CHEST: Lung bases are predominantly clear. No pleural effusion. LIVER: No focal hepatic lesions are seen. GALLBLADDER: Gallbladder is surgically absent. BILE DUCTS: No biliary ductal dilation. SPLEEN: Spleen size is normal. Granulomatous calcification is seen. PANCREAS: No pancreatic mass or inflammatory change. ADRENALS: Normal KIDNEYS/URINARY TRACT: No renal calculi or hydronephrosis. No ureteral calculi. There is a Schmitt catheter which is present in the urinarybladder. There is no obvious abnormality by noncontrast CT. GI: There is a large amount of fecal material in the colon. Theterminal ileum is normal. The appendix is not specifically seen, by history thisis surgically absent. There is no bowel obstruction. There is a smallbowel containing right inguinal hernia which also contains fat withoutcomplication or obstruction. PERITONEUM: No ascites or free air is seen. No mesenteric mass or lymphadenopathy is seen. RETROPERITONEUM: No retroperitoneal mass or lymphadenopathy. REPRODUCTIVE: Status post hysterectomy. No significant abnormalitiesare identified. VASCULATURE: Abdominal aorta is nonaneurysmal. There is mildatheromatous calcification of the abdominal aorta. MUSCULOSKELETAL: Bone windows demonstrate no acute or aggressiveosseous abnormality. There is a levocurvature of the lumbar spine withdegenerative changes. No aggressive osseous lesion is seen. OTHER: No other abnormality. IMPRESSION: 1. No evidence of an acute abnormality or finding to explain hematuria. Schmitt catheter is noted. 2. Large amount of fecal material the colon evidence of constipation. 3. Postsurgical changes as detailed above including cholecystectomy,history of appendectomy and hysterectomy. THIS IS AN ELECTRONICALLY VERIFIED FINAL REPORT 07/22/2020 7:17 PM - Electronically signed by Ralf Quinones M.D. CH: Report ID: [id number] Reading Location: [place] [address] Sonny Keene MD IMG CT PROCEDURES F inal Result documented in this encounter Visit Diagnoses Diagnosis Hematuria, unspecified type documented in this encounter Care Teams Pilot Boat Captain Relationship Specialty Start Date End Date Theresa Camargo MD PCP - General 09/29/18 12/05/22 Laz Valencia MD Consulting Physician Cardiology 03/22/19 12/05/22 Migue Herman MD Consulting Physician Urology 05/16/19 Sonny Palmer MD Surgeon General Surgery 05/16/19 documented as of this encounter
--- OUTSIDE RECORDS SUMMARY | 2024-05-26 13:01 | XMS_ITS | Encounter Summary ---
Author Organization [facility] Healthcare Address [address] [place] [address] Care Team Providers Care Soap Drier Tender Name Role Phone Theresa Camargo MD Primary Care Provider [phone] Laz Valencia MD Unavailable [phone] Migue Herman MD Unavailable [phone] Sonny Palmer MD Unavailable [phone] Encounter Details Date Type Department Care Team (Late st Contact Info) Description 10/25/2019 1:45 PM CDT Lab [address] [address] Laz Valencia MD [address] [place] [address] Chronic diastolic congestive heart failure (CMS/HCC); PAF (paroxysmal atrial fibrillation) (CMS/HCC) Discharge Disposition: Discharge to home or self [...] on file 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 Gender Identity Not on file Sexual Orientation Not on file documented as of this encounter Discharge Disposition Disposition Code Departure Means Destination Discharge to home or self care documented in this encounter Plan of Treatment Not on file documented as of this encounter Procedures Procedure Name Priority Date/Time Associated Diagnosis Comments EGFR Routine 10/25/2019 1:42 PM CDT Chronic diastolic congestive heart failure ([facility]/HCC) PRO B-TYPE NATRIURETIC PEPTIDE Routine 10/25/2019 1:42 PM CDT Chronic diastolic congestive heart failure ([facility]/HCC) MAGNESIUM Routine 10/25/2019 1:42 PM CDT Chronic diastolic congestive heart failure ([facility]) PAF (paroxysmal atrial fibrillation) ([facility]) BASIC METABOLIC PANEL Routine 10/25/2019 1:42 PM CDT Chronic diastolic congestive heart failure ([facility]) documented in this encounter Results * eGFR (10/25/2019 1:42 PM CDT) eGFR 45 mL/min/1.7 3 m2 [facility] ([place]) Comment: Interpretive Data Reference Interval Normal ?>/= 90 mL/min/1.73m2 Mildly decreased* ? 60 - 89 mL/min/1.73m2 Mildly to moderately decreased ?45 - 59 mL/min/1.73m2 Moderately to severely decreased ??30 - 44 mL/min/1.73m2 Severely decreased ?15 - 29 mL/min/1.73m2 Kidney Failure ?< 15 ??mL/min/1.73m2 *Relative to young adult level If -[place] multiply value by 1.16. Estimated glomerular filtration [...] was last reviewed 2015. Blood specimen (specimen) 10/25/2019 1:42 PM CDT 10/25/2019 2:35 PM CDT us Laz Valencia MD LAB BLOOD ORDERABLES Final Resu lt [facility] ([place]) 1 [facility] [place] [address] * (ABNORMAL) Basic metabolic panel (10/25/2019 1:42 PM CDT) Sodium 137 135 - 145 mmol/L [facility] ([place]) Potassium, pl 3.9 3.3 - 4.9 mmol/L [facility] ([place]) Chloride 99 97 - 110 mmol/L [facility] ([place]) CO2 24 22 - 32 mmol/L [facility] ([place]) Anion gap 14 2 - 15 mmol/L [facility] ([place]) BUN 25 8 - 25 mg/dL [facility] ([place]) Creatinine 1.14(H) 0.60 - 1.10 mg/dL [facility] ([place]) [...] 2017. Calcium 11.5(H) 8.5 - 10.3 mg/dL [facility] ([place]) Blood specimen (specimen) 10/25/2019 1:42 PM CDT 10/25/2019 2:35 PM CDT us Laz Valencia MD LAB BLOOD ORDERABLES Final Resu lt [facility] ([place]) 1 [facility] [place] [address] * Pro B-type natriuretic peptide (10/25/2019 1:42 PM CDT) NT-proBNP 78 <=450 pg/mL [facility] ([place]) Comment: Interpretive Comments: A. Dyspnea in Acute [...] MD LAB BLOOD ORDERABLES Final Resu lt Performing Organization Address City/[facility]/ZIP Co de Phone Number [facility] ([place]) [address] [facility] [place] [address] * Magnesium (10/25/2019 1:42 PM CDT) Magnesium 2.2 1.4 - 2.5 mg/dL [facility] ([place]) Blood specimen (specimen) 10/25/2019 1:42 PM CDT 10/25/2019 2:35 PM CDT Laz Valencia MD LAB BLOOD ORDERABLES Final Resu lt Performing Organization Address City/[facility] Co de Phone Number [facility] ([place]) [address] [facility] [place] [address] documented in this encounter Visit Diagnoses Diagnosis Chronic diastolic congestive heart failure (CMS/HCC) (HCC) PAF (paroxysmal atrial fibrillation) (CMS/HCC) (HCC) Atrial fibrillation documented in this encounter Care Teams Soap Drier Tender Relationship Specialty Start Date End Date Theresa Camargo MD PCP - General 09/29/18 12/05/22 Laz Valencia MD Consulting Physician Cardiology 03/22/19 12/05/22 Migue Herman MD Consulting Physician Urology 05/16/19 Sonny Palmer MD Surgeon General Surgery 05/16/19 documented as of this encounter
--- OUTSIDE RECORDS SUMMARY | 2024-05-26 13:01 | XMS_ITS | Encounter Summary ---
Author Organization [facility] Healthcare Address [address] [place] [address] Care Team Providers Care Building Rental Superintendent Name Role Phone Theresa Camargo MD Primary Care Provider [phone] Laz Valencia MD Unavailable [phone] Migue Herman MD Unavailable [phone] Sonny Palmer MD Unavailable [phone] Encounter Details Date Type Department Care Team (Late st Contact Info) Description 08/27/2019 12:30 PM CDT Lab [address] [address] Social History Tobacco Use Types Packs/Day Years Used Date Smoking Tobacco: Never Smokeless Tobacco: Never Alcohol Use Standard Drinks/Week Comments No 0 (1 standard drink = 0.6 oz pur e alcohol) PHQ-2 Answer Date Recorded PHQ-2 Score 0 03/06/2019 Comments No Sex and Gender Information Value Date Recorded Sex Assigned at Not on file 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 60 - 89 mL/min/1.73m2 Mildly to moderately decreased ?45 - 59 mL/min/1.73m2 Moderately to severely decreased ??30 - 44 mL/min/1.73m2 Severely decreased ?15 - 29 mL/min/1.73m2 Kidney Failure ?< 15 ??mL/min/1.73m2 *Relative to young adult level If -[place] multiply value by 1.16. Estimated glomerular filtration [...] was last reviewed 2015. Blood specimen (specimen) 08/27/2019 12:00 PM CDT 08/27/2019 12:29 PM CDT us Theresa Camargo MD LAB BLOOD ORDERABLES Final Re sult [facility] ([place]) 1 [facility] Department [place] [address] * (ABNORMAL) Basic metabolic panel, serum (08/27/2019 12:00 PM CDT) Sodium 139 135 - 145 mmol/L [facility] ([place]) Potassium, sr 3.7 3.6 - 5.2 mmol/L [facility] ([place]) Chloride 98 97 - 110 mmol/L [facility] ([place]) CO2 29 22 - 32 mmol/L [facility] ([place]) Anion gap 13 2 - 15 mmol/L [facility] ([place]) BUN 27(H) 8 - 25 mg/dL [facility] ([place]) Creatinine 0.86 0.60 - 1.10 mg/dL [facility] ([place]) Glucose 156 70 - 199 mg/dL [facility] ([place]) [...] interpretive data was last revised 2017. Calcium 11.0(H) 8.5 - 10.3 mg/dL [facility] ([place]) Blood specimen (specimen) 08/27/2019 12:00 PM CDT 08/27/2019 12:29 PM CDT us Theresa Camargo MD LAB BLOOD ORDERABLES Final Re sult [facility] ([place]) 1 [facility] Department [place] [address] documented in this encounter Visit Diagnoses Not on filedocumented in this encounter Care Teams Building Rental Superintendent Relationship Specialty Start Date End Date Theresa Camargo MD PCP - General 09/29/18 12/05/22 Laz Valencia MD Consulting Physician Cardiology 03/22/19 12/05/22 Migue Herman MD Consulting Physician Urology 05/16/19 Sonny Palmer MD Surgeon General Surgery 05/16/19 documented as of this encounter
--- OUTSIDE RECORDS SUMMARY | 2024-05-26 13:01 | XMS_ITS | Encounter Summary ---
Author Organization [facility] Facility Care Team Providers Care Metal Furniture Glazier Name Role Phone Theresa Camargo MD Primary Care Provider [phone] Laz Valencia MD Unavailable [phone] Encounter Details Date Type Department Care Team (Latest Contact Info) Description 04/20/2019 Travel Social History Tobacco Use Types Packs/Day Years Used Date Smoking Tobacco: Never Smokeless Tobacco: Never Alcohol Use Standard Drinks/Week Comments No 0 (1 standard drink = 0.6 oz pur e alcohol) PHQ-2 Answer Date Recorded PHQ-2 Score 0 03/06/2019 Comments No Sex and Gender Information Value Date Recorded Sex Assigned at Not on file 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
--- OUTSIDE RECORDS SUMMARY | 2024-05-26 13:01 | XMS_ITS | Encounter Summary ---
Author Organization [facility] Healthcare Address [address] [place] [address] Care Team Providers Care Manager Orange Name Role Phone Theresa Camargo MD Primary Care Provider [phone] Laz Valencia MD Unavailable [phone] Migue Herman MD Unavailable [phone] Sonny Palmer MD Unavailable [phone] Encounter Details Date Type Department Care Team (Late st Contact Info) Description 07/21/2020 Telephone [facility] [address] [place] [id number] Hilda Venegas RT Social History Tobacco Use Types Packs/Day Years Used Date Smoking Tobacco: Never Smokeless Tobacco: Never Alcohol Use Standard Drinks/Week Comments No 0 (1 standard drink = 0.6 oz pur e alcohol) PHQ-2 Answer Date Recorded PHQ-2 Score 0 03/06/2019 Comments No Sex and Gender Information Value Date Recorded Sex Assigned at Not on file 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 Gender Identity Not on file Sexual Orientation Not on file documented as of this encounter Miscellaneous Notes * Telephone Encounter - Hilda Venegas RT - 07/21/2020 12:42 PM CST confirmed ATE EQUITY ANALYST documented in this encounter Plan of Treatment Not on file documented as of this encounter Visit Diagnoses Not on filedocumented in this encounter Care Teams Manager Orange Relationship Specialty Start Date End Date Theresa Camargo MD PCP - General 09/29/18 12/05/22 Laz Valencia MD Consulting Physician Cardiology 03/22/19 12/05/22 Migue Herman MD Consulting Physician Urology 05/16/19 Sonny Palmer MD Surgeon General Surgery 05/16/19 documented as of this encounter
--- OUTSIDE RECORDS SUMMARY | 2024-05-26 13:01 | XMS_ITS | Encounter Summary ---
Author Organization [facility] Healthcare Address [address] [place] [address] Care Team Providers Care Auto Wrecker Name Role Phone Theresa Camargo MD Primary Care Provider [phone] Landon Valencia MD Unavailable [phone] Migue Herman MD Unavailable [phone] Sonny Palmer MD Unavailable [phone] Reason for Visit * Diagnostic Imaging (Routine) - Closed Specialty Diagnoses / Procedures Referred By Contac t Referred To Contact Radiology Diagnoses Frequent headaches Procedures CT head without contrast Landon Valencia MD Phone: tel: fax: [address] [address] Referral ID Status Reason Start Date Expiration Date Visits Re quested Visits Authorized [id number] Closed 07/31/2020 08/30/2021 1 1 Encounter Details Date Type Department Care Team (Latest Contact Info) Description 08/02/2020 5:29 PM CDT - 08/02/2020 11:59 PM CDT Hospital Encounter [facility] [address] [place] [address] Landon Valencia MD [address] [address] Discharge Disposition: Discharge to home or self [...] on file Legal Sex Female 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 SUPERVISOR Gender Identity Not on file Sexual Orientation Not on file documented as of this encounter Medications at Time of Discharge anastrozole (ARIMIDEX) 1 mg tabletIndication s:prevention of breast cancer in high risk women Take 1 tablet (1 mg total) by mouth daily albuterol HFA (PROAIR HFA) 90 mcg/actuation inhaler inhale 2 puff by inhalation route every 4 - 6 hours as needed 0 Inhaler 0 07/01/2016 1 amitriptyline (ELAVIL) 25 mg tabletIndication s:Neuropathic Pain [...] 1 Invokana 100 mg tablet 07/21/2019 1 levothyroxine (SYNTHROID) 25 mcg tablet Take 25 mcg by mouth socially responsible investment adviser before breakfast 1 metOLazone (ZAROXOLYN) 2.5 mg tabletIndication s:friday and TAKE 1 TABLET (2.5 MG TOTAL) [...] Name Priority Date/Time Associated Diagnosis Comments CT HEAD WO CONTRAST Schedule Routine, Read Routine (OP Routine) 08/02/2020 5:44 PM CDT Frequent headaches documented in this encounter Results * CT head without contrast (08/02/2020 5:44 PM CDT) Anatomical Region Laterality Modality Head and Neck N/A Computed Tomogra phy 08/02/2020 5:31 PM CDT Narrative 08/02/2020 8:06 PM CDT [facility] ?Imaging Result Name: LOC ANDERSON ?Ordering Phys: LANDON VALENCIA Age: 79 ?Date of : 1940 ? Accession Number: [id number] Date of Service: 08/02/2020 ??Gender: F EXAM DESCRIPTION: ?? CT HEAD WO CONTRAST REASON FOR STUDY: ??Pain at the top the head radiating down the left side for 2 weeks. ??History of stroke. TECHNIQUE: ??Axial images acquired through the brain without intravenous contrast. ??Images stored on PACS. ?? Automated exposure control was used as a dose optimization technique for this examination. COMPARISON: ?? CT from 01/17/[address] from 03/19/2019. ?? BRAIN: There is no intracranial hemorrhage or evidence of acute ischemia. There is no midline shift or mass effect. There is moderate diffuse cerebral volume loss and moderate patchy hypoattenuation in the periventricular white matter, likely sequela of chronic microvascular ischemia. There is no hydrocephalus. EXTRA-AXIAL SPACES: There is no extra-axial fluid collection or mass. CALVARIUM: There is no calvarial fracture. PARANASAL SINUSES AND MASTOIDS: The paranasal sinuses and the mastoid air cells are normal in appearance. ORBITS: There is no evidence of an acute abnormality involving the globes or the orbital fat. OTHER: There are intracranial atherosclerotic calcifications. There is a oz bullosa on the right. IMPRESSION: 1. ??No evidence of an acute intracranial process. 2. ??Senescent changes, including moderate diffuse cerebral volume loss and moderate chronic microvascular ischemic disease. THIS IS AN ELECTRONICALLY VERIFIED FINAL REPORT 08/02/2020 8:03 PM - Electronically signed by Duane Michael M.D. AB: D: ??08/02/2020 8:03 PM T: ??08/02/2020 8:03 PM Report ID: [id number] Reading Location: ??[id number] Procedure Note Duane Michael MD - 08/02/2020 [facility] Imaging Result Name: LOC ANDERSON Ordering Phys: LANDON VALENCIA Age: 79 Date of : 1940 Accession Number: [id number] Date of Service: 08/02/2020 Gender: F EXAM DESCRIPTION: CT HEAD WO CONTRAST REASON FOR STUDY: Pain at the top the head radiating down the left sidefor 2 weeks. History of stroke. TECHNIQUE: Axial images acquired through the brain without intravenous contrast. Images stored on PACS. Automated exposure control was used asa dose optimization technique for this examination. COMPARISON: CT from 01/17/[address] from 03/19/2019. BRAIN: There is no intracranial hemorrhage or evidence of acute ischemia. There is no midline shift or mass effect. There is moderatediffuse cerebral volume loss and moderate patchy hypoattenuation in the periventricular white matter, likely sequela of chronic microvascular ischemia. There is no hydrocephalus. EXTRA-AXIAL SPACES: There is no extra-axial fluid collection or mass. CALVARIUM: There is no calvarial fracture. PARANASAL SINUSES AND MASTOIDS: The paranasal sinuses and the mastoidair cells are normal in appearance. ORBITS: There is no evidence of an acute abnormality involving the globesor the orbital fat. OTHER: There are intracranial atherosclerotic calcifications. There is a oz bullosa on the right. IMPRESSION: 1. No evidence of an acute intracranial process. 2. Senescent changes, including moderate diffuse cerebral volume lossand moderate chronic microvascular ischemic disease. THIS IS AN ELECTRONICALLY VERIFIED FINAL REPORT 08/02/2020 8:03 PM - Electronically signed by Duane Michael M.D. AB: Report ID: [id number] Reading Location: [id number] Landon Valencia MD IMG CT PROCEDURES Final Result documented in this encounter Visit Diagnoses Not on filedocumented in this encounter Care Teams Auto Wrecker Relationship Specialty Start Date End Date Theresa Camargo MD PCP - General 09/29/18 12/05/22 Landon Valencia MD Consulting Physician Cardiology 03/22/19 12/05/22 Migue Herman MD Consulting Physician Urology 05/16/19 Sonny Palmer MD Surgeon General Surgery 05/16/19 documented as of this encounter
--- OUTSIDE RECORDS SUMMARY | 2024-05-26 13:01 | XMS_ITS | Encounter Summary ---
Author Organization [facility] Facility Care Team Providers Care Runner Out Name Role Phone Theresa Camargo MD Primary Care Provider [phone] Encounter Details Date Type Department Care Team (Latest Contact Info) Description 03/19/2019 Travel Social History Tobacco Use Types Packs/Day Years Used Date Smoking Tobacco: Never Smokeless Tobacco: Never Alcohol Use Standard Drinks/Week Comments No 0 (1 standard drink = 0.6 oz pur e alcohol) PHQ-2 Answer Date Recorded PHQ-2 Score 0 03/06/2019 Comments No Sex and Gender Information Value Date Recorded Sex Assigned at Not on file 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
--- OUTSIDE RECORDS SUMMARY | 2024-05-26 13:01 | XMS_ITS | Encounter Summary ---
Author Organization [facility] Healthcare Address [address] [place] [address] Care Team Providers Care Crew Mess Attendant Name Role Phone Theresa Camargo MD Primary Care Provider [phone] Laz Valencia MD Unavailable [phone] Migue Herman MD Unavailable [phone] Sonny Palmer MD Unavailable [phone] Reason for Visit * Reason Comments Fall Encounter Details Date Type Department Care Team (Late st Contact Info) Description 01/17/2020 5:37 PM CDT - 01/17/2020 8:49 PM CDT Emergency [facility] Emergency Department [address] [place] [address] Lisa Cardenas MD [address] [place] [id number] Head injury, initial encounter (Primary Dx) Discharge Disposition: Discharge to home [...] on file 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 Gender Identity Not on file Sexual Orientation Not on file documented as of this encounter Last Filed Vital Signs Vital Sign Reading Time Taken Comments Blood Pressure 129/53 01/17/2020 8:30 PM CDT Pulse 78 01/17/2020 8:30 PM CDT Temperature 35.6 ??C (96 ??F) 01/17/2020 2:03 PM CDT Respiratory Rate 18 01/17/2020 2:03 PM CDT Oxygen Saturation 95% 01/17/2020 8:30 PM CDT Inhaled Oxygen Concentration - - Weight 81.6 kg (180 lb) 01/17/2020 2:03 PM CDT Height 165.1 cm (5' 5 ) 01/17/2020 2:03 PM CDT Body Mass Index 29.95 01/17/2020 2:03 PM CDT documented in this encounter Discharge Diagnoses Diagnosis Unspecified injury of head, initial encounter - UNSPECIFIED INJURY OF HEAD, INITIAL ENCOUNTER Fall on same level, unspecified, initial encounter - FALL ON SAME LEVEL, UNSPECIFIED, INITIAL ENCOUNTER Activity, unspecified - ACTIVITY, UNSPECIFIED Unspecified place or not applicable - UNSPECIFIED PLACE OR NOT APPLICABLE Unspecified external cause status - UNSPECIFIED EXTERNAL CAUSE STATUS Type 2 diabetes mellitus without complications ([facility]) ([facility]) - TYPE 2 DIABETES MELLITUS WITHOUT COMPLICATIONS Unspecified atrial fibrillation ([facility]) - UNSPECIFIED ATRIAL FIBRILLATION Obstructive sleep apnea (adult) (pediatric) - OBSTRUCTIVE SLEEP APNEA (ADULT) (PEDIATRIC) Atherosclerotic heart disease of [place] coronary artery without angina pectoris - ATHEROSCLEROTIC HEART DISEASE OF [place] CORONARY ARTERY WITHOUT ANGINA PECTORIS Hyperlipidemia, unspecified - HYPERLIPIDEMIA, UNSPECIFIED Essential (primary) hypertension - ESSENTIAL (PRIMARY) HYPERTENSION 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 - PAIN COORDINATOR (CURRENT) USE OF ANTITHROMBOTICS/ANTIPLATELETS 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 oral hypoglycemic drugs - PAIN COORDINATOR (CURRENT) USE OF ORAL HYPOGLYCEMIC DRUGS 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[facility]) - HEREDITARY SPASTIC PARAPLEGIA Hereditary spastic paraplegia Unspecified glaucoma - UNSPECIFIED GLAUCOMA Unspecified osteoarthritis, unspecified site - UNSPECIFIED OSTEOARTHRITIS, UNSPECIFIED SITE Unspecified asthma, uncomplicated - UNSPECIFIED ASTHMA, UNCOMPLICATED Personal history of transient ischemic attack (TIA), and cerebral infarction without residual deficits - PERSONAL HISTORY OF TRANSIENT ISCHEMIC ATTACK (TIA), AND CEREBRAL INFARCTION WITHOUT RESIDUAL DEFICI documented in this encounter Discharge Instructions * Discharge Instructions* Lisa Cardenas MD - 01/17/2020 8:21 PM CDT Follow up with your PMD. Return if condition worsens. * Attachments The following attachments cannot be sent through Care Everywhere. 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 Fall Loc Leon is a 79 y.o. female with a history of TIA on Plavix, HTN, HLD, OA, CAD, diabetes, A-fib, and CATY who presents to the ED s/p fall occurring 1 week ago. Pt had a mechanical fall in which she sustained a bump on the back of her head that has gradually declined in size, but the pt's home health nurse noticed the bump on her head today and instructed her to come to the ED for further eval uation after discussing with her PCP's office. Pt denies headache, fever, or N/V/D. She is unsteadyat baseline and regularly falls even with the assistance of a walker. Pt has a chronic catheter and was noted to have hematuria today (stated by patient) but was not seen by the pt's manager latin or daughter. Daughter at bedside notes that she has had similar but brief episodes of hematuria of which was likely due to not inserting enough water into the catheter when flushing. Additionally, her catheter occasionally becomes clogged with sediment, requiring frequent flushing. Pt denies any other recent urinary symptoms. Theresa Camargo MD (PCP) Nursing Note reviewed Past Medical History: Diagnosis Date ??? A-fib [...] Hysterectomy, total abdominal, BSO HOME MEDICATIONS : albuterol HFA (PROAIR HFA) 90 mcg/actuation inhaler amitriptyline (ELAVIL) 25 mg tablet anastrozole (ARIMIDEX) 1 mg tablet artificial tears (SYSTANE) 0.3 % gel aspirin (ASPIRIN LOW DOSE) 81 mg tablet bromfenac 0.07 % drops calcium carbonate/vitamin D3 (CALTRATE WITH VITAMIN D3 ORAL) clopidogrel (PLAVIX) 75 mg tablet cranberry extract-vitamin C 250-60 mg capsule cyanocobalamin (vitamin B-12) 1,000 mcg tablet empagliflozin (JARDIANCE) [address] (NexIUM) 40 mg capsule flecainide (TAMBOCOR) 50 mg tablet FREESTYLE LITE STRIPS strip furosemide (LASIX) 40 mg tablet glimepiride (AMARYL) 1 mg tablet Invokana 100 mg tablet latanoprost (XALATAN) 0.005 % ophthalmic solution levothyroxine (SYNTHROID) 25 mcg tablet menthol-zinc oxide (CALMOSEPTINE) 0.44-20.6 % ointment metOLazone (ZAROXOLYN) 2.5 mg tablet multivitamin (ONCE DAILY) tablet tablet polyethylene glycol (MIRALAX) 17 gram packet potassium chloride ER (KLOR-CON) 10 mEq CR tablet rosuvastatin (CRESTOR) 10 mg tablet SITagliptin (JANUVIA) 100 mg tablet verapamil ER (VERELAN) 120 mg 24 hr capsule Allergies Allergen Reactions ??? Donepezil Other (See [...] problems, Review of Systems Constitutional: Negative for chills and fever. HENT: Negative for congestion and sore throat. (+) bump on back of head Eyes: Negative for pain and visual disturbance. Respiratory: Negative for cough, shortness of breath and wheezing. Cardiovascular: Negative for chest pain, palpitations and leg swelling. Gastrointestinal: Negative for abdominal pain, diarrhea, nausea and vomiting. Genitourinary: Positive for hematuria. Negative for difficulty urinating, dysuria and frequency. Neurological: Negative for weakness and headaches. All other systems reviewed and are negative. Physical Exam Vitals signs and nursing note reviewed. Constitutional: Appearance: She is well-developed. HENT: Head: Normocephalic. Comments: occipital scalp swelling noted Nose: Nose normal. Eyes: Conjunctiva/sclera: Conjunctivae normal. Pupils: Pupils are equal, round, and reactive to light. Neck: Musculoskeletal: Normal range of motion and neck supple. Comments: No step-off or c-spine tenderness Cardiovascular: Rate and Rhythm: Normal rate and regular rhythm. Heart sounds: Normal heart sounds. Pulmonary: Effort: Pulmonary effort is normal. Breath sounds: Normal breath sounds. Abdominal: General: Bowel sounds are normal. Palpations: Abdomen is soft. Genitourinary: Comments: indwelling olivas cath draining clear urine Musculoskeletal: Normal range of motion. Right lower leg: No edema. Left lower leg: No edema. Skin: General: Skin is warm and dry. Neurological: Mental Status: She is alert and oriented to person, place, and time. Vitals: 01/17/20 1403 01/17/20 1800 01/17/20 1830 01/17/20 2030 BP: 116/63 169/83 161/83 129/53 Pulse: 84 80 80 78 Resp: 18 Temp: (!) 35.6 ??C (96 ??F) TempSrc: Temporal SpO2: 93% 100% 96% 95% Weight: 81.6 kg (180 lb) Height: 165.1 cm (5' 5 ) Labs Reviewed CBC WITH AUTO DIFFERENTIAL - Abnormal Result Value WBC 9.7 Hgb 15.2 Hct 46.6 (*) Plt 294 MPV 10.3 RBC 5.18 MCV 90.0 MCH 29.3 MCHC 32.6 RDW CV 13.7 RDW SD 44.4 NRBC abs 0.00 COMPREHENSIVE METABOLIC PANEL - Abnormal Sodium 138 Potassium, pl 3.6 Chloride 97 CO2 30 Anion gap 11 BUN 25 Creatinine 1.12 (*) Glucose 169 Calcium 10.8 (*) Bilirubin, total 0.3 Protein, pl 7.1 Albumin 4.2 Alk phos 83 ALT 27 AST 25 DIFFERENTIAL AUTO - Abnormal Neutrophil abs 6.7 (*) Imm gran abs 0.1 Lymphocyte abs 1.4 Monocyte abs 1.2 (*) Eosinophil abs 0.2 Basophil abs 0.1 Neutrophil pct 69.5 Imm gran pct 1.0 Lymphocyte pct 14.2 Monocyte pct 12.4 Eosinophil pct 2.3 Basophil pct 0.6 APTT aPTT 31 PROTIME-INR PT 11.4 INR 1.[address] Head WO Contrast Final Result No acute intracranial process. Small-vessel ischemic changes. THIS IS AN ELECTRONICALLY VERIFIED FINAL REPORT 01/17/2020 8:10 PM - Electronically signed by Kike Xiao M.D. NC: CONG Report ID: [id number] Reading Location: [id number] Procedures [facility] ED Course as of Jan 16 2142 Time: 01/16 2022 Comment: No acute intracranial findings, labwork is unremarkable. Patient is stable for discharge for outpatient f/u with PCP. Pt is agreeable with plan. By: Naseem Goetz IMPRESSION: 1. Head injury, initial encounter ATTESTATIONS: This note is prepared by Naseem Goetz acting as a scribe for Dr. Lisa Cardenas. I electronically signed this note at 9:42 PM on 01/17/2020. I, Dr. Lisa Cardenas, have personally performed the services described in the documentation , reviewed the documentation, as recorded by the scribe in my presence, and it accurately and completely records my words and actions. Lisa Cardenas MD 01/17/208 * Patricia Pak RN - 01/17/2020 2:00 PM CDT 79 y.o. female pt to ED. Pt reports she fell 1 week ago and hit back of head. Pts home nurse yesterday contacted pts pcp and to come to ED for CT scan. Pt also complaint of blood in urine x4 days. Pthas catheter in place. Pt denies any loss of consciousness, headaches, or loss of vision. documented in this encounter Plan of Treatment Not on file documented as of this encounter Procedures Procedure Name Priority Date/Time Associated Diagnosis Comments CT HEAD WO CONTRAST ED 01/17/2020 7 :52 PM CDT EGFR STAT 01/17/2020 3:05 PM CDT DIFFERENTIAL AUTO STAT 01/17/2020 3:0 5 PM CDT CBC WITH AUTO DIFFERENTIAL STAT 01/17/2020 3:05 PM CDT APTT STAT 01/17/2020 3:05 PM CDT PROTIME-INR STAT 01/17/2020 3:05 PM CDT COMPREHENSIVE METABOLIC PANEL STAT 01/17/2020 3:05 PM CDT documented in this encounter Results * CT Head WO Contrast (01/17/2020 7:52 PM CDT) Anatomical Region Laterality Modality Head and Neck N/A Computed Tomogra phy 01/17/2020 7:42 PM CDT Impressions 01/17/2020 8:13 PM CDT ??No acute intracranial process. ??Small-vessel ischemic changes. THIS IS AN ELECTRONICALLY VERIFIED FINAL REPORT 01/17/2020 8:10 PM - Electronically signed by Kike Xiao M.D. NC: CONG D: ??01/17/2020 8:10 PM T: ??01/17/2020 8:10 PM Report ID: [id number] Reading Location: ??[id number] Narrative 01/17/2020 8:13 PM CDT [facility] ?Imaging Result Name: LOC LEON ?Ordering Phys: LISA CARDENAS Age: 79 ?Date of : 1940 ? Accession Number: [id number] Date of Service: 01/17/2020 ??Gender: F EXAM DESCRIPTION: ?? CT HEAD WO CONTRAST REASON FOR STUDY: ?? fall, hit back of head, patient is on blood thinner, denies LOC or headachesDuration: 1 week ago TECHNIQUE: ??Axial images acquired through the brain without intravenous contrast. ??Images stored on PACS. ?? Automated exposure control was used as a dose optimization technique for this examination. COMPARISON: ?? 03/19/2019 ?? CEREBRUM: No hemorrhage, edema or mass effect. No recent infarct. WHITE MATTER: Small-vessel ischemic changes are noted. POSTERIOR FOSSA: No masses. No hemorrhage. No evidence for acute infarction. EXTRA-AXIAL SPACES: No fluid collections. No masses. BRAIN VOLUME: There is volume loss. ORBITS: No intra- or extraconal masses. Normal appearing globes. CALVARIUM: No fracture. PARANASAL SINUSES AND MASTOIDS: No fluid or mucosal thickening. OTHER: No other significant abnormality. Procedure Note Kike Xiao MD - 01/17/2020 [facility] Imaging Result Name: LOC LEON Ordering Phys: LISA MATOSBROOK Age: 79 Date of : 1940 Accession Number: [id number] Date of Service: 01/17/2020 Gender: F EXAM DESCRIPTION: CT HEAD WO CONTRAST REASON FOR STUDY: fall, hit back of head, patient is on blood thinner, denies LOC or headachesDuration: 1 week ago TECHNIQUE: Axial images acquired through the brain without intravenous contrast. Images stored on PACS. Automated exposure control was used asa dose optimization technique for this examination. COMPARISON: 03/19/2019 CEREBRUM: No hemorrhage, edema or mass effect. No recent infarct. WHITE MATTER: Small-vessel ischemic changes are noted. POSTERIOR FOSSA: No masses. No hemorrhage. No evidence for acuteinfarction. EXTRA-AXIAL SPACES: No fluid collections. No masses. BRAIN VOLUME: There is volume loss. ORBITS: No intra- or extraconal masses. Normal appearing globes. CALVARIUM: No fracture. PARANASAL SINUSES AND MASTOIDS: No fluid or mucosal thickening. OTHER: No other significant abnormality. IMPRESSION: No acute intracranial process. Small-vessel ischemic changes. THIS IS AN ELECTRONICALLY VERIFIED FINAL REPORT 01/17/2020 8:10 PM - Electronically signed by Kike Xiao M.D. NC: CONG Report ID: [id number] Reading Location: [place] [id number] us Lisa Cardenas MD IMG CT PROCEDURES Final Re sult * eGFR (01/17/2020 3:05 PM CDT) eGFR 46 mL/min/1.7 3 m2 [facility] Comment: Interpretive Data Reference Interval Normal ?>/= 90 mL/min/1.73m2 Mildly decreased* ? 60 - 89 mL/min/1.73m2 Mildly to moderately decreased ?45 - 59 mL/min/1.73m2 Moderately to severely decreased ??30 - 44 mL/min/1.73m2 Severely decreased ?15 - 29 mL/min/1.73m2 Kidney Failure ?< 15 ??mL/min/1.73m2 *Relative to young adult level If -Prydeinig multiply value by 1.16. Estimated glomerular filtration [...] was last reviewed 2015. Blood specimen (specimen) 01/17/2020 3:05 PM CDT 01/17/2020 3:24 PM CDT us Lisa Cardenas MD LAB BLOOD ORDERABLES Final Result [facility] [address] [facility] Department [place] [address] * (ABNORMAL) Differential, auto (01/17/2020 3:05 PM CDT) Neutrophil abs 6.7(H) 1.7 - 6.5 K/cumm [facility] ([place]) Imm gran abs 0.1 0.0 - 0.1 K/cumm [facility] ([place]) Lymphocyte abs 1.4 0.8 - 3.3 K/cumm [facility] ([place]) Monocyte abs 1.2(H) 0.2 - 0.8 K/cumm [facility] ([place]) Eosinophil abs 0.2 0.0 - 0.5 K/cumm [facility] ([place]) Basophil abs 0.1 0.0 - 0.1 K/cumm [facility] ([place]) Neutrophil pct 69.5 % [facility]) Comment: Interpretive Data Percent cell count reference ranges are not reported, since discordance with absolute values may lead to misinterpretation of CBC data. Current Interpretive Data was last revised on 2017. Imm gran pct 1.0 % [facility] ([place]) Comment: Interpretive Data Percent cell count reference ranges are not reported, since discordance with absolute values may lead to misinterpretation of CBC data. Current Interpretive Data was last revised on 2017. Lymphocyte pct 14.2 % [facility] ([place]) Comment: Interpretive Data Percent cell count reference ranges are not reported, since discordance with absolute values may lead to misinterpretation of CBC data. Current Interpretive Data was last revised on 2017. Monocyte pct 12.4 % [facility] ([place]) Comment: Interpretive Data Percent cell count reference ranges are not reported, since discordance with absolute values may lead to misinterpretation of CBC data. Current Interpretive Data was last revised on 2017. Eosinophil pct 2.3 % [facility] ([place]) Comment: Interpretive Data Percent cell count reference ranges are not reported, since discordance with absolute values may lead to misinterpretation of CBC data. Current Interpretive Data was last revised on 2017. Basophil pct 0.6 % [facility] ([place]) Comment: Interpretive Data Percent cell count reference ranges are not reported, since discordance with absolute values may lead to misinterpretation of CBC data. Current Interpretive Data was last revised on 2017. Blood specimen (specimen) 01/17/2020 3:05 PM CDT 01/17/2020 3:24 PM CDT us Lisa Cardenas MD LAB BLOOD ORDERABLES Final Result [facility] ([place] [address] [facility] Department [place] [address] * Protime-INR (01/17/2020 3:05 PM CDT) PT 11.4 9.5 - 13.0 sec [facility] ([place]) INR 1.0 0.9 - 1.2 [facility] ([place]) Comment: Interpretive data Oral anticoagulant therapeutic ranges: Venous thromboembolism prophylaxis or treatment: 2.0-3.0 CARDIOLOGY Standard range: 2.0-3.0 High-intensity range: 2.5-3.5 Refer to indication-specific guidelines for appropriate target ranges for prosthetic heart valve replacement. Current interpretive data was last revised on 2019. Blood specimen (specimen) 01/17/2020 3:05 PM CDT 01/17/2020 3:24 PM CDT Lisa Cardenas MD LAB BLOOD ORDERABLES Final Result Performing Organization Address [facility] Co de Phone Number [facility] ([place]) [address] [facility] [place] [address] * aPTT (01/17/2020 3:05 PM CDT) aPTT 31 25 - 37 sec [facility] ([place]) Comment: Interpretive data Heparin therapeutic range: 60-94 seconds Range based on correlation with therapeutic heparin activity range of 0.3-0.7 units/ml. Current interpretive data was last revised on 2019. Blood specimen (specimen) 01/17/2020 3:05 PM CDT 01/17/2020 3:24 PM CDT Lisa Cardenas MD LAB BLOOD ORDERABLES Final Result Performing Organization Address [facility] de Phone Number [facility] ([place]) [address] [place] [address] * (ABNORMAL) Comprehensive metabolic panel (01/17/2020 3:05 PM CDT) Sodium 138 135 - 145 mmol/L [facility] ([place]) Potassium, pl 3.6 3.3 - 4.9 mmol/L [facility] ([place]) Chloride 97 97 - 110 mmol/L [facility] ([place]) CO2 30 22 - 32 mmol/L [facility] ([place]) Anion gap 11 2 - 15 mmol/L [facility] ([place]) BUN 25 8 - 25 mg/dL [facility] ([place]) Creatinine 1.12(H) 0.60 - 1.10 mg/dL [facility] ([place]) Glucose 169 70 - 199 mg/dL [facility] [...] 1.2 mg/dL [facility] ([place]) Protein, pl 7.1 6.5 - 8.5 g/dL [facility] ([place]) Albumin 4.2 3.5 - 5.0 g/dL [facility] ([place]) Alk phos 83 40 - 130 Units/L [facility] ([place] ALT 27 7 - 45 Units/L [facility] ([place]) AST 25 10 - 45 Units/L [facility] ([place]) Comment: Hemolysis present. ??Results may be affected. Slightly Hemolyzed Specimen Blood specimen (specimen) 01/17/2020 3:05 PM CDT 01/17/2020 3:24 PM CDT us Lisa Cardenas MD LAB BLOOD ORDERABLES Final Result [facility] Department [place] [address] * (ABNORMAL) CBC with auto differential (01/17/2020 3:05 PM CDT) WBC 9.7 3.8 - 9.9 K/cumm [facility] ([place]) Hgb 15.2 11.9 - 15.5 g/dL [facility] ([place]) Hct 46.6(H) 35.6 - 45.5 % [facility] ([place]) Plt 294 150 - 400 K/cumm [facility] ([place]) MPV 10.3 9.1 - 12.3 fL [facility] ([place]) RBC 5.18 3.90 - 5.20 M/cumm [facility] ([place]) MCV 90.0 81.3 - 96.4 fL [facility] ([place]) MCH 29.3 27.1 - 33.3 pg [facility] ([place]) MCHC 32.6 32.3 - 35.7 g/dL [facility] ([place]) RDW CV 13.7 11.1 - 14.9 % [facility] ([place]) RDW SD 44.4 35.7 - 48.1 fL [facility] ([place]) NRBC abs 0.00 0.00 - 0.01 K/cumm [facility] ([place]) Blood specimen (specimen) 01/17/2020 3:05 PM CDT 01/17/2020 3:24 PM CDT us Lisa Cardenas MD LAB BLOOD ORDERABLES Final Result [facility] ([place]) [address] [facility] Department [place] [address] documented in this encounter Visit Diagnoses Diagnosis Head injury, initial encounter- Primary documented in this encounter Care Teams Crew Mess Attendant Relationship Specialty Start Date End Date Theresa Camargo MD PCP - General 09/29/18 12/05/22 Laz Valencia MD Consulting Physician Cardiology 03/22/19 12/05/22 Migue Herman MD Consulting Physician Urology 05/16/19 Sonny Palmer MD Surgeon General Surgery 05/16/19 documented as of this encounter
--- OUTSIDE RECORDS SUMMARY | 2024-05-26 13:01 | XMS_ITS | Encounter Summary ---
Author Organization [facility] Address [address] [place] [address] Care Team Providers Care Photoresist Contact Printer Name Role Phone Theresa Camargo MD Primary Care Provider [phone] Landon Valencia MD Unavailable [phone] Migue Herman MD Unavailable [phone] Sonny Palmer MD Unavailable [phone] Reason for Referral * Diagnostic Imaging (Routine) - Closed Specialty Diagnoses / Procedures Referred By Contac t Referred To Contact Radiology Diagnoses Frequent headaches Procedures CT head without contrast Landon Valencia MD Phone: tel: fax: [facility] [address] [place] [address] Referral ID Status Reason Start Date Expiration Date Visits Re quested Visits Authorized [id number] Closed 07/31/2020 08/30/2021 1 1 Reason for Visit * Reason Comments Coronary Artery Disease Congestive Heart Failure Atrial Fibrillation Encounter Details Date Type Department Care Team (Late st Contact Info) Description 07/31/2020 11:15 AM CDT Office Visit [place] 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 2 [facility] [address] [place] [id number] Landon Valencia MD [address] [place] [address] [address] PAF (paroxysmal atrial fibrillation) (CMS/HCC) (Primary Dx); Chronic diastolic congestive heart failure (CMS/HCC); CATY on CPAP; Hypokalemia; Frequent headaches Social History Tobacco Use Types Packs/Day Years Used Date Smoking Tobacco: Never Smokeless Tobacco: Never Alcohol Use Standard Drinks/Week Comments No 0 (1 standard drink = 0.6 oz pur e alcohol) PHQ-2 Answer Date Recorded PHQ-2 Score 0 03/06/2019 Comments No Sex and Gender Information Value Date Recorded Sex Assigned at Not on file Legal Sex 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 Gender Identity Not on file Sexual Orientation Not on file documented as of this encounter Last Filed Vital Signs Vital Sign Reading Time Taken Comments Blood Pressure 107/53 07/31/2020 11:34 AM CDT Pulse 79 07/31/2020 11:34 AM CDT Temperature 36.4 ??C (97.5 ??F) 07/31/2020 11:34 AM C DT Respiratory Rate 18 07/31/2020 11:34 AM CDT Oxygen Saturation - - Inhaled Oxygen Concentration - - Weight 79.4 kg (175 lb) 07/31/2020 11:34 AM CDT Height 165.1 cm (5' 5 ) 07/31/2020 11:34 AM CDT Body Mass Index 29.12 07/31/2020 11:34 AM CDT documented in this encounter Progress Notes * Landon Valencia MD - 07/31/2020 11:15 AM CDT Cardiology note Reason for Office Visit: CC: Patient is presenting for a follow up visit for a-fib, CAD History of Present Illness: Loc Leon is a 79 y.o. female who presents to the office for a -fib . CAD Patient has had a cath in 2010 showing intermediate CAD normal LV , physiologic lesion assessment of the left anterior descending showing insignificant stenosis. Patient was in [place] 10/2015 went to [facility] had chest pain and nausea [...] on her TSH with Dr. Javed at [facility] for a low thyroid but improved and will monitor it. patient had episode of diarhea and became dehydrated she questionsed whether she had a-fib for she had an episode of chest pain. Was taken to [facility] for hypotension and at one point had [...] [facility]hab [facility] a time- [facility] Dizziness and trouble with balance in [...] mcg tablet Take 25 mcg by mouth director of valuation before breakfast ??? menthol-zinc oxide (CALMOSEPTINE) 0.44-20.6 [...] for this visit. Vital Signs: Vitals BP 107/53 (BP Location: Right arm, Patient Position: Sitting) Pulse 79 Temp 36.4 ??C (97.5 ??F) Resp 18 Ht 165.1 cm (5' 5 ) Wt 79.4 kg (175 lb) BMI 29.12 kg/m?? Vitals: 07/31/20 1134 BP: 107/53 Pulse: 79 Resp: 18 Temp: 36.4 ??C (97.5 ??F) Wt Readings from Last 3 Encounters: 07/31/20 79.4 kg (175 lb) 01/17/20 81.6 kg (180 lb) 06/13/19 81.6 kg (180 lb) Body mass index is 29.12 kg/m??. Physical Exam: Physical Exam Constitutional: She [...] Labs: Lab Results Component Value Date INR 1.0 01/17/2020 INR 1.11 03/19/2019 INR 1.14 09/29/2018 Lab Results Component Value Date PT 11.4 01/17/2020 PT 12.5 03/19/2019 PT 12.9 09/29/2018 Lab Results Component Value Date TSH 4.34 (H) 03/08/2019 FREET4 1.01 03/08/2019 Lab Results Component Value Date BILIRUBINU Negative 06/14/2016 AST 25 01/17/2020 ALT 27 01/17/2020 ALKPHOS 83 01/17/2020 ALBUMIN 4.2 01/17/2020 Lab Results Component Value Date SODIUM 138 01/17/2020 POTASSIUM 3.6 01/17/2020 CHLORIDE 97 01/17/2020 CO2 30 01/17/2020 ANIONGAP 11 01/17/2020 GLUCOSEUR 2+ (A) 06/13/2019 Lab Results Component Value Date BNP 14 08/30/2015 Lab Results Component Value Date SODIUM 138 01/17/2020 SODIUM 137 10/25/2019 SODIUM 139 08/27/2019 POTASSIUM 3.6 01/17/2020 POTASSIUM 3.9 10/25/2019 POTASSIUM 3.9 06/13/2019 CHLORIDE 97 01/17/2020 CHLORIDE 99 10/25/2019 CHLORIDE 98 08/27/2019 CO2 30 01/17/2020 CO2 24 10/25/2019 CO2 29 08/27/2019 BUNSER 25 01/17/2020 BUNSER 25 10/25/2019 BUNSER 27 (H) 08/27/2019 CREATININE 1.12 (H) 01/17/2020 CREATININE 1.14 (H) 10/25/2019 CREATININE 0.86 08/27/2019 GFRNAA 46 01/17/2020 GFRNAA 45 10/25/2019 GFRNAA 64 08/27/2019 GLUCOSE 169 01/17/2020 CALCIUM 10.8 (H) 01/17/2020 CALCIUM 11.5 (H) 10/25/2019 CALCIUM 11.0 (H) 08/27/2019 ALBUMIN 4.2 01/17/2020 ALBUMIN 3.1 (L) 05/16/2019 ALBUMIN 3.5 05/15/2019 PHOS 2.2 (L) 05/16/2019 PHOS 1.9 (L) 05/15/2019 PHOS 2.1 (L) 03/22/2019 Lab Results Component Value Date SODIUM 138 01/17/2020 POTASSIUM 3.6 01/17/2020 CHLORIDE 97 01/17/2020 CO2 30 01/17/2020 ANIONGAP 11 01/17/2020 BUNSER 25 01/17/2020 CREATININE 1.12 (H) 01/17/2020 GLUCOSE 169 01/17/2020 CALCIUM 10.8 (H) 01/17/2020 BILITOT 0.3 01/17/2020 PROT 7.1 01/17/2020 ALBUMIN 4.2 01/17/2020 ALKPHOS 83 01/17/2020 ALT 27 01/17/2020 AST 25 01/17/2020 Lab Results Component Value Date WBC 9.7 01/17/2020 HGB 15.2 01/17/2020 HCT 46.6 (H) 01/17/2020 LABPLAT 294 01/17/2020 MPV 10.3 01/17/2020 RBC 5.18 01/17/2020 MCV 90.0 01/17/2020 MCH 29.3 01/17/2020 MCHC 32.6 01/17/2020 RDWCV 13.7 01/17/2020 RDWSD 44.4 01/17/2020 NRBCABS 0.00 01/17/2020 Lab Results Component Value Date CHOL 112 [...] atrial fibrillation [I48.0] Atherosclerotic heart disease of [place] coronary artery without angina pectoris [I25.10] CATY [G47.33] Plan: Same meds Continue tight control of blood pressure and cholesterol. BP diary and pulse and daily weights Continue diet, and weight reduction. daily weight Need to Use Leg pumps routinely. Leg elevation And compression stocking Head CT without contrast to rule out SDH as cause of residual pain. Follow up echo given worsening SOB RTC in 12 months Diagnoses and all orders for this visit: PAF (paroxysmal atrial fibrillation) (CMS/HCC) (Primary) Chronic diastolic congestive heart failure (CMS/HCC) CATY on CPAP Hypokalemia Return in about 1 year (around 07/31/2021). 07/31/2020 @ 12:00 PM Landon Valencia MD Cc:Theresa Camargo MD documented in this encounter Miscellaneous Notes * Addendum Note - Jodi Monique MA - 07/31/2020 11:15 AM CDTAddended by: JODI MONIQUE on: 07/31/2020 12:44 PM Modules accepted: Orders documented in this encounter Plan of Treatment Not on file documented as of this encounter Results * CT head without contrast (08/02/2020 5:44 PM CDT) Anatomical Region Laterality Modality Head and Neck N/A Computed Tomogra phy 08/02/2020 5:31 PM CDT Narrative 08/02/2020 8:06 PM CDT [facility] ?Imaging Result Name: LOC LEON ?Ordering Phys: LANDON VALENCIA Age: 79 ?Date of : 1940 ? Accession Number: [id number] Date of Service: 08/02/2020 ??Gender: F EXAM [...] PM T: ??08/02/2020 8:03 PM Report ID: [id number] Reading Location: ??[id number] Procedure Note Duane Michael MD - 08/02/2020 [facility] Imaging Result Name: LOC LEON Ordering Phys: LANDON VALENCIA Age: 79 Date of : 1940 Accession Number: [id number] Date of Service: 08/02/2020 Gender: F EXAM [...] by Duane Michael M.D. AB: Report ID: [id number] Reading Location: [place] [address] Landon Valencia MD IM CT PROCEDURES Final Result documented in this encounter Visit Diagnoses Diagnosis PAF (paroxysmal atrial fibrillation) (CMS/HCC) (HCC)- Primary Atrial fibrillation Chronic diastolic congestive heart failure (CMS/HCC) (HCC) CATY on CPAP Hypokalemia Hypopotassemia Frequent headaches documented in this encounter Discontinued Medications Medication Sig Discontinue Reason Start Date End Da te calcium carbonate/vitamin D3 (CALTRATE WITH VITAMIN D3 ORAL) Take 1 tablet by mouth 2 (two) times a day Therapy completed 07/31/2020 bromfenac 0.07 % dropsIndications:Bidirec tional Cardiovascular Shunt Administer 1 drop into affected eye(s) 2 (two) times a day Therapy completed 07/31/2020 cranberry extract-vitamin C 250-60 mg capsule Take 2 tablets by mouth daily Therapy completed 07/31/2020 cyanocobalamin (vitamin B-12) 1,000 mcg tablet take 1 tablet by oral route every day Therapy completed 07/01/2016 07/31/2020 empagliflozin (JARDIANCE) 10 mg tabletIndications:type 2 diabetes mellitus Take 10 mg by mouth daily Therapy completed 07/31/2020 latanoprost (XALATAN) 0.005 % ophthalmic solution instill 1 drop by ophthalmic route every day into affected eye(s) in the evening Therapy completed 07/01/2016 07/31/2020 menthol-zinc oxide (CALMOSEPTINE) 0.44-20.6 % ointment PRN Therapy completed 07/01/2016 07/31/2020 documented as of this encounter Care Teams Photoresist Contact Printer Relationship Specialty Start Date End Date Theresa Camargo MD PCP - General 09/29/18 12/05/22 Landon Valencia MD Consulting Physician Cardiology 03/22/19 12/05/22 Migue Herman MD Consulting Physician Urology 05/16/19 Sonny Palmer MD Surgeon General Surgery 05/16/19 documented as of this encounter
--- OUTSIDE RECORDS SUMMARY | 2024-05-26 13:01 | XMS_ITS | Encounter Summary ---
Author Organization [facility] Healthcare Address [address] [place] [address] Care Team Providers Care Marketing Content Specialist Name Role Phone Theresa Camargo MD Primary Care Provider [phone] Laz Valencia MD Unavailable [phone] Migue Herman MD Unavailable [phone] Sonny Palmer MD Unavailable [phone] Reason for Visit * Reason Comments Urinary Catheter Leaking Encounter Details Date Type Department Care Team (Late st Contact Info) Description 06/13/2019 8:54 AM [employer] - 06/13/2019 12:29 PM [employer] Emergency [facility] Emergency Department [address] [place] [address] Jerzy Akhtar MD [address] [place] [id number] Galvez catheter problem, initial encounter (CMS/HCC) (Primary Dx); Contusion of right forearm, initial encounter Discharge Disposition: Discharge to home or self [...] file Legal Sex Female 6:56 PM [employer] Gender Identity Not on file Sexual Orientation Not on file documented as of this encounter Last Filed Vital Signs Vital Sign Reading Time Taken Comments Blood Pressure 118/71 06/13/2019 12:17 PM [employer] Pulse 87 06/13/2019 12:17 PM [employer] Temperature 36.3 ??C (97.3 ??F) 06/13/2019 9:11 AM CS T Respiratory Rate 16 06/13/2019 12:17 PM [employer] Oxygen Saturation 95% 06/13/2019 12:17 PM [employer] Inhaled Oxygen Concentration - - Weight 81.6 kg (180 lb) 06/13/2019 9:11 AM [employer] Height 165.1 cm (5' 5 ) 06/13/2019 9:11 AM [employer] Body Mass Index 29.95 06/13/2019 9:11 AM [employer] documented in this encounter Discharge Diagnoses Diagnosis Other mechanical complication of other urinary catheter, initial encounter ([facility]) - OTHER MECHANICAL COMPLICATION OF OTHER URINARY CATHETER, INITIAL ENCOUNTER Other specified events, undetermined intent, initial encounter - OTHER SPECIFIED EVENTS, UNDETERMINED INTENT, INITIAL ENCOUNTER Contusion of right forearm, initial encounter - CONTUSION OF RIGHT FOREARM, INITIAL ENCOUNTER Other fall on same level, initial encounter - OTHER FALL ON SAME LEVEL, INITIAL ENCOUNTER Activity, other specified - ACTIVITY, OTHER SPECIFIED Bathroom of single-family (private) house as the place of occurrence of the external cause - BATHROOM OF SINGLE-FAMILY (PRIVATE) HOUSE THE PLACE OF OCCURRENCE OF THE EXTERNAL CAUSE Type 2 diabetes mellitus without complications ([facility]) ([facility]) - TYPE 2 DIABETES MELLITUS WITHOUT COMPLICATIONS Atherosclerotic heart disease of [place] coronary artery without angina pectoris - ATHEROSCLEROTIC HEART DISEASE OF [place] CORONARY ARTERY WITHOUT ANGINA PECTORIS Unspecified atrial fibrillation (HCC) - UNSPECIFIED ATRIAL FIBRILLATION Other specified anemias - OTHER SPECIFIED ANEMIAS 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 Unspecified glaucoma - UNSPECIFIED GLAUCOMA Essential (primary) hypertension - ESSENTIAL (PRIMARY) HYPERTENSION Unspecified essential hypertension Unspecified asthma, uncomplicated - UNSPECIFIED ASTHMA, UNCOMPLICATED Unspecified osteoarthritis, unspecified site - UNSPECIFIED OSTEOARTHRITIS, UNSPECIFIED SITE Other sleep apnea - OTHER SLEEP APNEA Hyperlipidemia, unspecified - HYPERLIPIDEMIA, UNSPECIFIED Personal history of transient ischemic attack (TIA), and cerebral infarction without residual deficits - PERSONAL HISTORY OF TRANSIENT ISCHEMIC ATTACK (TIA), AND CEREBRAL INFARCTION WITHOUT RESIDUAL DEFICI Acquired absence of other specified parts of digestive tract - ACQUIRED ABSENCE OF OTHER SPECIFIED PARTS OF DIGESTIVE TRACT Acquired absence of both cervix and uterus - ACQUIRED ABSENCE OF BOTH CERVIX AND UTERUS nursing home (current) use of aspirin - LONG-TERM (CURRENT) USE OF ASPIRIN nursing home (current) use of oral hypoglycemic drugs - LONG-TERM (CURRENT) USE OF ORAL HYPOGLYCEMIC DRUGS Other residential (current) drug therapy - OTHER HIDE SHAKER (CURRENT) DRUG THERAPY documented in this encounter Discharge Instructions * Attachments The following attachments cannot be sent through Care Everywhere. 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 Pt has a chronic indwelling galvez cath that she states was changed a week ago. Pt reports leaking from the catheter that began last night. Cath tubing appears to be clogged with urine that is thick and has sediment. Pt denies pain and fevers. Vitals stable. [employer] * Jerzy Akhtar MD - 06/13/2019 9:07 AM CST HPI Chief Complaint Patient presents with ??? Urinary Catheter Leaking 8:57 AM 06/13/2019. Pt is a 78 y/o female nonsmoker with a h/o asthma, A-fib, HTN, HLD, CAD, and DM2, presenting to ED with a catheter problem that started last night. Pt reports that her catheter hasbeen leaking and that the bag is half full this morning than what it normally is. Her reports that she has had issues with sediment build up in the catheter before and believes this has happened again. Pt notes she hasn't been drinking as much water as she has been instructed to. There are no modifying factors. No new medication has been taken. Pt denies any abdominal pain, nausea, fevers, or chills. PCP: Theresa Camargo MD Urologist: Hussain Norris MD Per chart review: pt has a catheter in place for increase quality of life due to urinary incontinence and incomplete emptying of bladder. She was admitted at [facility] from 05/13-05/16 for UTI and cystitis. CT scan of abdomen: Impression: 1. GALVEZ CATHETER IS PRESENT IN [...] A SMALL SEGMENT OF NONDILATED SMALL BOWEL. Patient History Patient Active Problem List Diagnosis Date Noted ??? Breast cancer (CMS/HCC) 10/01/2017 Priority: Medium ??? Weakness generalized 10/01/2017 Priority: Medium ? ? Nausea & vomiting 10/01/2017 Priority: Medium ??? DM (diabetes mellitus) (CMS/HCC) 10/01/2017 Priority: Medium ??? PAF (paroxysmal atrial fibrillation) (CMS/HCC) 10/01/2017 Priority: Low ??? Lymphedema of both lower extremities 10/01/2017 Priority: Low ??? CATY on CPAP 10/01/2017 Priority: Low ??? Cystitis 05/14/2019 ??? Constipation 05/14/2019 ??? Recurrent inguinal hernia 05/14/2019 ??? [...] nausea and vomiting. Genitourinary: Negative for dysuria, frequency and hematuria. Catheter problem Musculoskeletal: Negative for arthralgias, back pain, myalgias and neck pain. Skin: Negative for rash and wound. Neurological: Negative for dizziness, syncope, weakness, light-headedness and headaches. All other systems reviewed and are negative. Physical Exam ED Triage Vitals Temp Pulse Resp BP SpO2 06/13/19 0911 06/13/19 0911 06/13/19 0911 06/13/19 0911 06/13/19 0911 36.3 ??C (97.3 ??F) 79 16 114/86 95 % Temp src Heart Rate Source Patient Position BP Location FiO2 (%) 06/13/19 0911 06/13/19 1217 -- 06/13/19 1217 -- Temporal Pulse Oximetry Right arm Physical Exam Vitals signs and nursing note reviewed. Constitutional: General: She is not in acute distress. Appearance: She is well-developed. HENT: Head: Normocephalic and atraumatic. Eyes: Conjunctiva/sclera: Conjunctivae normal. Neck: Musculoskeletal: Normal range of motion and neck supple. Cardiovascular: Rate and Rhythm: Normal rate and regular rhythm. Heart sounds: Normal heart sounds. No murmur. No friction rub. No gallop. Pulmonary: Effort: Pulmonary effort is normal. No respiratory distress. Breath sounds: Normal breath sounds. No wheezing or rales. Abdominal: General: There is no distension. Palpations: Abdomen is soft. Tenderness: There is no tenderness. Genitourinary: Comments: Indwelling galvez catheter present Musculoskeletal: Normal range of motion. General: No tenderness or deformity. Skin: General: Skin is warm and dry. Capillary Refill: Capillary refill takes less than 2 seconds. Coloration: Skin is not pale. Findings: No erythema or rash. Neurological: Mental Status: She is alert and oriented to person, place, and time. Psychiatric: Behavior: Behavior normal. BP 118/71 (BP Location: Right arm) Pulse 87 Temp 36.3 ??C (97.3 ??F) (Temporal) Resp 16 Ht 165.1 cm (5' 5 ) Wt 81.6 kg (180 lb) SpO2 95% BMI 29.95 kg/m?? Labs Reviewed URINALYSIS AND REFLEX TO MICROSCOPIC AND CULTURE - Abnormal Result Value Color, ur Yellow Clarity, ur Cloudy (*) Specific gravity, ur 1.007 (*) pH, urine 7.5 Protein, ur ql 1+ (*) Glucose, ur ql 2+ (*) Ketones, ur Negative Bilirubin, ur Negative Blood, ur Trace (*) Urobilinogen, ur 0.2 Nitrite, ur Negative Leukocyte esterase, ur 2+ (*) UA reflex comment Reflex to microscopic UA will be performed. Narrative: Urine pH is affected by diet, medications, systemic acid-base disturbances, and renal tubular function. pH may affect urinary stone formation. For example, urine pH below 6.0 may help reduce the tendency for calcium phosphate stones and pH greater than 6.0 may reduce the tendency for uric acid stone formation. Source: [employer].Last revised 05-29-2017 URINALYSIS, MICROSCOPIC ONLY - Abnormal WBC, ur 21-50 (*) RBC, ur 0-5 Epithelial cells, squamous, ur 1-5 Bacteria, ur Negative Hyaline casts, ur 1-5 Culture Reflex Comment Reflex to urine culture will be performed. BASIC METABOLIC PANEL - Abnormal Sodium 139 Potassium, pl 3.9 Chloride 99 CO2 29 Anion gap 11 BUN 22 Creatinine 0.88 Glucose 126 Calcium 10.6 (*) URINE CULTURE Report Value: Final Report: Less than 100,000 colonies/mL (clinically insignificant growth based on current clinical standards) Organism (CLINICALLY INSIGNIFICANT GROWTH Narrative: Urine culture reflexed based upon urinalysis results. Testing performed by [facility] ([phone]) EGFR GFR 62 XR Shoulder Left 2 or More Views Final Result XR Radius Ulna Right 2 Views Final Result Procedures [facility] ED Course as of Jun 14 1935 Time: 06/13 1120 Comment: Rechecked pt. She is now endorsing right arm pain radiating from her wrist to her elbow along with left shoulder pain s/p a fall that occurred last night. Pt reports that she fell between the toilet and the sink. She denies hitting her head or any syncope prior to fall. Will get X-ray. Pt's urine also looks much yard cleaner and she reports she is currently taking several diuretics. By: Ashlee Butterfield Time: 06/13 1221 Comment: she is stable for discharge/condition is improved. She has been informed of the work-up findings. Also discussed plan for discharge and follow- up. Patient has been advised to return to the ED with any new or worsening symptoms. Patient verbalizes understanding and agreement with plan. All q uestions have been addressed at this time. By: Ashlee Butterfield Galvez catheter problem, initial encounter ([facility]) Contusion of right forearm, initial encounter This note is prepared by Ashlee Butterfield acting as a scribe for Jerzy Akhtar MD. Signed by Ashlee Galiciaibmainor, 9:10 AM 06/13/2019. I, Jerzy Akhtar MD, have personally performed the services described in the document, as recorded by the scribe in my presence, and it accurately and completely records my words and actions. Jerzy Akhtar MD 06/13/19 1216 Jerzy Akhtar MD 06/13/19 1216 Jerzy Akhtar MD 06/14/19 1936 [employer] documented in this encounter Plan of Treatment Not on file documented as of this encounter Procedures Procedure Name Priority Date/Time Associated Diagnosis Comments XR RADIUS ULNA RIGHT 2 VIEWS ED 06/13/2019 12:06 PM [employer] XR SHOULDER LEFT 2 OR MORE VIEWS ED 06/13/2019 12:06 PM [employer] EGFR STAT 06/13/2019 11:00 AM [employer] BASIC METABOLIC PANEL STAT 06/13/2019 11:00 AM [employer] URINALYSIS AND REFLEX TO MICROSCOPIC AND CULTURE STAT 06/13/2019 9:47 AM [employer] URINALYSIS, MICROSCOPIC ONLY STAT 06/13/2019 9:47 AM [employer] URINE CULTURE STAT 06/13/2019 9:47 AM [employer] documented in this encounter Results * XR Radius Ulna Right 2 Views (06/13/2019 12:06 PM [employer]) Anatomical Region Laterality Modality Upper Extremities, Forearm Right Compu roshan Radiography 06/13/2019 11:4 9 AM [employer] Narrative 06/13/2019 1:05 PM [employer] PROCEDURE INFORMATION: Exam: XR Right Forearm Exam date and time: 06/13/2019 11:49 AM Age: 78 years old Clinical indication: Pain; Lower or forearm; Right; Additional info: Patient fell last night injuring right forearm. Pain with any movement. TECHNIQUE: Imaging protocol: XR Right forearm. Views: 2 views. COMPARISON: No relevant prior studies available. FINDINGS: Bones/joints: Moderate osteoarthritis of possible erosions at the first right carpometacarpal articulation. Mild radiocarpal joint space narrowing. Benign-appearing cyst at the distal pole of the right scaphoid, lateral view. Small enthesophyte at the triceps tendon insertion. Small osteophyte/enthesophyte at the medial coronoid process. 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 Mild osteoarthritis at the carpometacarpal articulations. No evidence of joint effusion, fracture or dislocation. Soft tissues: Soft tissue calcification medial of the mid-distal right ulna. IMPRESSION: No evidence of acute osseous abnormality, chronic degenerative findings right wrist greater than elbow. THIS DOCUMENT HAS BEEN ELECTRONICALLY SIGNED BY EVAN SCHUSTER MD Procedure Note Evan Schuster MD - 06/13/2019 PROCEDURE INFORMATION: Exam: XR Right Forearm Exam date and time: 06/13/2019 11:49 AM Age: 78 years old Clinical indication: Pain; Lower or forearm; Right; Additional info:Patient fell last night injuring right forearm. Pain with any movement. TECHNIQUE: Imaging protocol: XR Right forearm. Views: 2 views. COMPARISON: No relevant prior studies available. FINDINGS: Bones/joints: Moderate osteoarthritis of possible erosions at the firstright carpometacarpal articulation. Mild radiocarpal joint space narrowing. Benign-appearing cyst at the distal pole of the right scaphoid, lateralview. Small enthesophyte at the triceps tendon insertion. Small osteophyte/enthesophyte at the medial coronoid process. Mild corticated irregularity at the lateral epicondyles likely reflecting chronic tenniselbow. Mild osteoarthritis at the carpometacarpal articulations. No evidence ofjoint effusion, fracture or dislocation. Soft tissues: Soft tissue calcification medial of the mid-distal rightulna. IMPRESSION: No evidence of acute osseous abnormality, chronic degenerative findingsright wrist greater than elbow. THIS DOCUMENT HAS BEEN ELECTRONICALLY SIGNED BY EVAN SCHUSTER MD Jerzy Akhtar MD IMG XR PROCEDURES Final Result * XR Shoulder Left 2 or More Views (06/13/2019 12:06 PM [employer]) Anatomical Region Laterality Modality Upper Extremities, Shoulder Left Comp uted Radiography 06/13/2019 11:5 5 AM [employer] Narrative 06/13/2019 1:06 PM [employer] PROCEDURE INFORMATION: Exam: XR Left Shoulder Exam date and time: 06/13/2019 11:55 AM Age: 78 years old Clinical indication: Pain; Shoulder; Left; Additional info: Patient fell last night injuring left shoulder. Pain with abduction. TECHNIQUE: Imaging protocol: XR Left shoulder. Views: 2 or more views. COMPARISON: No relevant prior studies available. FINDINGS: Bones/joints: Mild primary osteoarthritis of the left acromioclavicular joint. Mild facet osteoarthritis left lower cervical spine. Acromion is type II in configuration without significant lateral downsloping. No evidence of acute fracture or dislocation. No obvious joint effusion suggested. Heart/Mediastinum: Surgical clips in the region of the left base of heart. Heart is mildly enlarged. Vasculature: Mild aortic atherosclerosis. Possible atherosclerotic disease left carotid bulb. Soft tissues: Unremarkable. IMPRESSION: Left shoulder without evidence of acute osseous abnormality, chronic findings as above. THIS DOCUMENT HAS BEEN ELECTRONICALLY SIGNED BY EVAN SCHUSTER MD Procedure Note Evan Schuster MD - 06/13/2019 PROCEDURE INFORMATION: Exam: XR Left Shoulder Exam date and time: 06/13/2019 11:55 AM Age: 78 years old Clinical indication: Pain; Shoulder; Left; Additional info: Patient felllast night injuring left shoulder. Pain with abduction. TECHNIQUE: Imaging protocol: XR Left shoulder. Views: 2 or more views. COMPARISON: No relevant prior studies available. FINDINGS: Bones/joints: Mild primary osteoarthritis of the left acromioclavicularjoint. Mild facet osteoarthritis left lower cervical spine. Acromion is type IIin configuration without significant lateral downsloping. No evidence ofacute fracture or dislocation. No obvious joint effusion suggested. Heart/Mediastinum: Surgical clips in the region of the left base ofheart. Heart is mildly enlarged. Vasculature: Mild aortic atherosclerosis. Possible atherosclerotic diseaseleft carotid bulb. Soft tissues: Unremarkable. IMPRESSION: Left shoulder without evidence of acute osseous abnormality, chronicfindings as above. THIS DOCUMENT HAS BEEN ELECTRONICALLY SIGNED BY EVAN SCHUSTER MD us Jerzy Akhtar MD IMG XR PROCEDURES Final Result * eGFR (06/13/2019 11:00 AM [employer]) eGFR 62 mL/min/1.7 3 m2 [facility] ([place]) Comment: Interpretive Data Reference Interval Normal ?>/= 90 mL/min/1.73m2 Mildly decreased* ? 60 - 89 mL/min/1.73m2 Mildly to moderately decreased ?45 - 59 mL/min/1.73m2 Moderately to severely decreased ??30 - 44 mL/min/1.73m2 Severely decreased ?15 - 29 mL/min/1.73m2 Kidney Failure ?< 15 ??mL/min/1.73m2 *Relative to young adult level If -Stateless multiply value by 1.16. Estimated glomerular filtration [...] was last reviewed 2015. Blood specimen (specimen) 06/13/2019 11:00 AM [employer] 06/13/2019 11:03 AM [employer] Jerzy Akhtar MD LAB BLOOD ORDERABLES Fi nal Result [facility] ([place]) 1 [facility] Department [place] [address] * (ABNORMAL) Basic metabolic panel (06/13/2019 11:00 AM [employer]) Sodium 139 135 - 145 mmol/L [facility] ([place]) Potassium, pl 3.9 3.3 - 4.9 mmol/L [facility] ([place]) Chloride 99 97 - 110 mmol/L [facility] ([place]) CO2 29 22 - 32 mmol/L [facility] ([place]) Anion gap 11 2 - 15 mmol/L [facility] ([place]) BUN 22 8 - 25 mg/dL [facility] ([place]) Creatinine 0.88 0.60 - 1.10 mg/dL [facility] ([place]) Glucose 126 70 - 199 mg/dL [facility] ([place]) Comment: Interpretive Data Fasting glucose >/= [...] interpretive data was last revised 2017. Calcium 10.6(H) 8.5 - 10.3 mg/dL [facility] ([place]) Blood specimen (specimen) 06/13/2019 11:00 AM [employer] 06/13/2019 11:03 AM [employer] us Jerzy Akhtar MD LAB BLOOD ORDERABLES Fi nal Result [facility]) 1 [facility] Department [place] [address] * Urine culture Urine (06/13/2019 9:47 AM [employer]) Report Final Report: Less than 100,000 colonies/mL (clinically insignificant growth based on current clinical standards) [facility] ([place]) Comment:Testing performed by : [facility], [address] [facility], [place]., [address] Organism (CLINICALLY INSIGNIFICANT GROWTH [facility] ([place]) Urine 06/13/2019 9:47 AM [employer] 06/13/2019 2:26 PM [employer] Narrative [facility] ([place]) - 06/14/2019 5:03 PM [employer] Urine culture reflexed based upon urinalysis results. Testing performed by [facility] ([phone]) us Jerzy Akhtar MD LAB MICROBIOLOGY - GENE RAL ORDERABLES Final Result Performing Organization Address [facility] Co de Phone Number [facility] ([place]) 1 [facility] [place] [address] * (ABNORMAL) Urinalysis, microscopic only (06/13/2019 9:47 AM [employer]) WBC, ur 21-50(A) 0 - 5 /HPF [facility] ([place]) RBC, ur 0-5 0 - 2 /HPF [facility] ([place]) Epithelial cells, squamous, ur 1-5 0 - 5 /HPF [facility] ([place]) Bacteria, ur Negative [facility] ([place]) Hyaline casts, ur 1-5 0 - 10 /LPF [facility] ([place]) Culture Reflex Comment Reflex to urine culture will be performed. [facility] ([place]) Urine 06/13/2019 9:47 AM [employer] 06/13/2019 9:50 AM [employer] us Jerzy Akhtar MD LAB URINE ORDERABLES Fi nal Result Performing Organization Address [facility]/ZIP Co de Phone Number [facility] ([place]) 1 [facility] [address] [place], [place] [id number] * (ABNORMAL) Urinalysis reflex to microscopic and culture Urine (06/13/2019 9:47 AM [employer]) Color, ur Yellow Yellow [facility] ([place]) Clarity, ur Cloudy(A) Clear [facility] ([place]) Specific gravity, ur 1.007(L) 1.010 - 1.025 [facility] ([place]) pH, urine 7.5 [facility] ([place]) Protein, ur ql 1+(A) Negative [facility] ([place]) Glucose, ur ql 2+(A) Negative [facility] ([place]) Ketones, ur Negative Negative [facility] ([place]) Bilirubin, ur Negative Negative [facility] ([place]) Blood, ur Trace(A) Negative [facility] ([place]) Urobilinogen, ur 0.2 mg/dL [facility] ([place]) Nitrite, ur Negative Negative [facility] ([place]) Leukocyte esterase, ur 2+(A) Negative [facility] ([place]) UA reflex comment Reflex to microscopic UA will be performed. [facility] ([place]) Urine 06/13/2019 9:47 AM [employer] 06/13/2019 9:50 AM [employer] Narrative [facility] ([place]) - 06/13/2019 10:53 AM [employer] ?? Urine pH is affected by diet, medications, systemic acid-base disturbances, and renal tubular function. ??pH may affect urinary stone formation. ??For example, urine pH below 6.0 may help reduce the tendency for calcium phosphate stones and pH greater than 6.0 may reduce the tendency for uric acid stone formation. Source: [employer]. Last revised 05-29-2017 us Jerzy Akhtar MD LAB MICROBIOLOGY - [facility] ORDERABLES Final Result [facility] ([place]) 1 [facility] Department [place] [address] documented in this encounter Visit Diagnoses Diagnosis Galvez catheter problem, initial encounter (HCC)- Primary Contusion of right forearm, initial encounter documented in this encounter Orders Nursing Count Last Ordered Date First Orde red Date INSERT GALVEZ CATHETER 1 06/13/2019 documented in this encounter Care Teams Marketing Content Specialist Relationship Specialty Start Date End Date Theresa Camargo MD PCP - General 09/29/18 12/05/22 Laz Valencia MD Consulting Physician Cardiology 03/22/19 12/05/22 Migue Herman MD Consulting Physician Urology 05/16/19 Sonny Palmer MD Surgeon General Surgery 05/16/19 documented as of this encounter
--- OUTSIDE RECORDS SUMMARY | 2024-05-26 13:01 | XMS_ITS | Encounter Summary ---
Author Organization [facility] Facility Care Team Providers Care Customs Appraiser Name Role Phone Theresa Camargo MD Primary Care Provider Laz Valencia MD Unavailable [phone] Migue Herman MD Unavailable [phone] Sonny Palmer MD Unavailable [phone] Encounter Details Date Type Department Care Team (Latest Contact Info) Description 06/13/2019 Travel Social History Tobacco Use Types Packs/Day Years Used Date Smoking Tobacco: Never Smokeless Tobacco: Never Alcohol Use Standard Drinks/Week Comments No 0 (1 standard drink = 0.6 oz pur e alcohol) PHQ-2 Answer Date Recorded PHQ-2 Score 0 03/06/2019 Comments No Sex and Gender Information Value Date Recorded Sex Assigned at Not on file 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
--- OUTSIDE RECORDS SUMMARY | 2024-05-26 13:01 | XMS_ITS | Encounter Summary ---
Author Organization [facility] Address [address] [place] [address] Care Team Providers Care Mine Wirer Name Role Phone Theresa Camargo MD Primary Care Provider Laz Valencia MD Unavailable [phone] Encounter Details Date Type Department Care Team (Late st Contact Info) Description 04/27/2019 Orders Only [place] Referral Coordinator [address] [place] [address] Laz Valencia MD [address] [place] [address] [address] [place] [address] Essential hypertension (Primary Dx) Social History Tobacco Use Types Packs/Day Years Used Date Smoking Tobacco: Never Smokeless Tobacco: Never Alcohol Use Standard Drinks/Week Comments No 0 (1 standard drink = 0.6 oz pur e alcohol) PHQ-2 Answer Date Recorded PHQ-2 Score 0 03/06/2019 Comments No Sex and Gender Information Value Date Recorded Sex Assigned at Not on file 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
--- OUTSIDE RECORDS SUMMARY | 2024-05-26 13:02 | XMS_ITS | Encounter Summary ---
Author Organization [facility] Healthcare Address [address] [place] [address] Care Team Providers Care Eyedotter Name Role Phone Jarrell Garrison MD Primary Care Provider [phone] Encounter Details Date Type Department Care Team (Late st Contact Info) Description 12/08/2015 2:38 PM CDT - 12/08/2015 11:59 PM CDT Hospital Encounter [facility] Contusion of right eyelid and periocular area, initial encounter; Pain in left knee; Fall; Activity, other specified; Unspecified place or not applicable Social History Tobacco Use Types Packs/Day Years Used Date Smoking Tobacco: Never Alcohol Use Standard Drinks/Week Comments No 0 (1 standard drink = 0.6 oz pur e alcohol) Comments Unknown Sex and Gender Information Value Date Recorded Sex Assigned at Not on file 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 Gender Identity Not on file Sexual Orientation Not on file documented as of this encounter Medications at Time of Discharge albuterol HFA (PROAIR HFA) 90 mcg/actuation inhaler inhale 2 puff by inhalation route every 6 hours as needed 0 Inhaler 0 08/05/2014 8 amitriptyline (ELAVIL) 25 mg tablet take 1 tablet (25MG) by ORAL route every 24 hours with meals 0 01/10/2012 9 clopidogrel (PLAVIX) 75 mg tablet TAKE ONE BY MOUTH ONE TIME PER DAY 90 5 01/29/2007 9 cyanocobalamin, vitamin B-12, (VITAMIN B-12) 1,000 mcg tablet extended release 1 po daily 0 0 07/18/2009 9 empagliflozin (JARDIANCE) 10 mg tablet take 1 tablet by oral route every day in the morning 90 4 08/30/[address] (NexIUM) 40 mg capsule TAKE 1 CAPSULE DAILY 90 1 01/29/2007 1 furosemide (LASIX) 40 mg tablet TAKE 1 TABLET BY MOUTH EVERY DAY NEEDED 90 5 08/30/2015 8 glimepiride (AMARYL) 1 mg tablet take 1.5 tablet by oral route with breakfast, 2 tablets with lunch and 2.5 tablets with dinner 180 5 08/05/2014 9 insulin detemir (LEVEMIR FLEXTOUCH) 100 unit/mL (3 mL) insulin pen inject 10 units QHS by subcutaneous route per prescriber's instructions. Insulin dosing requires individualization. 0 Syringe 0 03/10/2015 9 latanoprost (XALATAN) 0.005 % ophthalmic solution instill 1 drop by Ophthalmic route every day into affected eye(s)in the evening 0 07/18/2009 9 rosuvastatin (CRESTOR) 10 mg tablet TAKE 1 TABLET BY MOUTH 1 TIME PER DAY AT BEDTIME 90 5 03/07/2009 1 SITagliptin (JANUVIA) 100 mg tablet take 1 tablet by oral route every day 30 5 03/10/2015 9 documented as of this encounter Plan of Treatment Not on file documented as of this encounter Visit Diagnoses Diagnosis Contusion of right eyelid and periocular area, initial encounter Pain in left knee Fall Unspecified fall Activity, other specified Unspecified place or not applicable documented in this encounter Care Teams Eyedotter Relationship Specialty Start Date End Date Jarrell Garrison MD PCP - General 09/26/15 08/15/16 documented as of this encounter
--- OUTSIDE RECORDS SUMMARY | 2024-05-26 13:02 | XMS_ITS | Encounter Summary ---
Author Organization [facility] Healthcare Address [address] [place] [address] Care Team Providers Care Glaze Mixer Name Role Phone Jarrell Garrison MD Primary Care Provider [phone] Encounter Details Date Type Department Care Team (Late st Contact Info) Description 02/11/2016 12:26 PM CDT - 02/12/2016 6:31 PM CDT Hospital Encounter [facility] Rony Cruz MD [address] [place], [place] [id number] Bradycardia; Hereditary spastic paraplegia (CMS/HCC); Other seizures (HCC); Dehydration; Paroxysmal atrial fibrillation (CMS/HCC); Type 2 diabetes mellitus without complications (CMS/HCC); Hyperlipidemia; Obstructive sleep apnea; Glaucoma; Essential (primary) hypertension; Atherosclerotic heart disease of [place] coronary artery without angina pectoris; Uncomplicated asthma; Gastro-esophageal reflux disease without esophagitis; Irritable bowel syndrome with diarrhea; Personal history of other malignant neoplasm of skin; Personal history of other infectious and parasitic diseases; Personal history of transient ischemic attack (TIA), and cerebral infarction without residual deficits Social History Tobacco Use Types Packs/Day Years Used Date Smoking Tobacco: Never Alcohol Use Standard Drinks/Week Comments No 0 (1 standard drink = 0.6 oz pur e alcohol) Comments Unknown Sex and Gender Information Value Date Recorded Sex Assigned at Not on file Legal Sex Female 6:56 PM FLOOR PERSON Gender Identity Not on file Sexual Orientation Not on file documented as of this encounter Last Filed Vital Signs Vital Sign Reading Time Taken Comments Blood Pressure 117/58 02/12/2016 3:05 PM CDT Pulse 45 02/12/2016 3:05 PM CDT Temperature - - Respiratory Rate - - Oxygen Saturation - - Inhaled Oxygen Concentration - - Weight 91.5 kg (201 lb 11.5 oz) 02/12/2016 9:51 AM CDT Height 165.1 cm (5' 5 ) 02/12/2016 9:51 AM CDT Body Mass Index 33.57 02/12/2016 9:51 AM CDT documented in this encounter Discharge Summaries * Provider, MD Desiree - 02/12/2016 12:00 AM CDT DISCHARGE SUMMARY Patient: LOC ANDERSON Account: [id number] Room No: 2614-01 : 1940 Patient Type: IP Attend.: Rony Chen M.D. Admit Date: 02/11/2016 Dict.: Migue Gama M.D. Disch. Date: 02/12/2016 BRIEF HISTORY OF PRESENT ILLNESS AND HOSPITAL COURSE Patient has history of TIA, hypertension, partial seizure, history of paroxysmal atrial fibrillation, presently in sinus. Seen by a [employer] supervisor Dr. Corona today. Patient was having sudden onset of weakness at noon, also complaining of diarrhea. She was also having chest pressure-like pain that was only for an hour. Patient has having amoxicillin for tooth extraction. As per Dr. Corona's Cardiology consultation, patient has significant bradycardia. Patient is on sotalol as well as verapamil which is a calcium channel tete, possibly causing bradycardia of around 45. Patient is recommended to continue the present medication as per Cardiology with monitor which will be arranged by Cardiology. If patient has significant bradycardia, she may be considered for pacemaker as outpatient. The patient is okay to be discharged. PAST MEDICAL HISTORY Again is: 1. Asthma. 2. Atrial fibrillation and cardiac catheterization. 3. Colonoscopy. 4. Duodenal ulcer. 5. Echocardiogram. 6. Familial spastic paraplegia. 7. Hematoma of forehead. 8. Gallbladder surgery. 9. Glaucoma. 10. Hernia repair. 11. Hysterectomy. 12. Diabetes. 13. Stroke 2006. 14. Partial seizures. 15. Pneumonia. 16. Shingles. DISCHARGE DIAGNOSIS 1. Near syncope. Unclear etiology but possibly related to bradycardia as well as dehydration. Patient had onset of diarrhea. Patient considered okay to be discharged to home with monitoring as described above. 2. Chest pain, ruled out for myocardial infarction. 3. Transient ischemic attack and cerebrovascular accident. 4. History of anticoagulation for paroxysmal atrial fibrillation, to be addressed by Cardiology as outpatient. Apparently in sinus rhythm at the present time. 5. Familial spastic paraplegia. 6. Detailed past medical history as above. Results of patient's investigations as follows: Her CBC is showing WBC count of 12.36, hemoglobin of 12.6, crit is 38, platelets are 279. UA reflex to culture shows glucose is more than 1000. Blood culture is negative. CMP as on 02/10 shows sodium 144, potassium 3.7, glucose of 207, anion gap of 19. Head CT without contrast shows no acute intracranial abnormality. Consult on patient is Cardiology, is Dr. Corona. MEDICATION ON DISCHARGE See reconciliation sheet. CONDITION AT DISCHARGE Improved. MEDICATIONS Please see reconciliation sheet. FOLLOWUP With Cardiology, recommend 1-2 weeks, as well as PCP in 1 week's time. Followup lab investigations as deemed by PCP as well as Cardiology. DISPOSITION To home. DIET ON DISCHARGE Low cholesterol. Electronically Authenticated by: Migue Gama MD On 02/19/2016 04:34 PM CDT Migue Gama M.D. /conrad TD: 02/13/2016 07:49 documented in this encounter Medications at Time [...] 03/10/2015 9 documented as of this encounter H&P Notes * Provider, MD Desiree - 02/11/2016 12:00 AM CDT HISTORY AND PHYSICAL Patient: LOC ANDERSON Account: [id number] Room No: 2614-01 : 1940 Patient Type: IP Attend.: Rony Chen M.D. Admit Date: 02/11/2016 Dict.: Migue Gama M.D. Disch. Date: CHIEF COMPLAINT Near syncope. HISTORY OF PRESENT ILLNESS Patient is a 75-year-old lady with history of TIA, hypertension, partial seizures, history of paroxysmal atrial fib with skin cancer, irritable bowel syndrome. Patient had sudden onset of weakness at noon. Patient was complaining of diarrhea today. She also had a slight hypoxemia. However she was complaining of pressure-like chest pain. Patient has only diarrhea about for 1 hour. She was having amoxicillin for tooth extraction. No history of any fever or chills. Patient was brought to the emergency room by ambulance. Patient lives at home with her . DETAILED PAST MEDICAL HISTORY 1. Asthma. 2. Atrial fibrillation. 3. 10/2015 Echo. 4. Cardiac catheterization 2002. 5. She also had a colonoscopy done 2002. 6. Duodenal ulcer in 1977. 7. Echocardiogram was done of the heart. 8. She also has familial spastic paraplegia. 9. Hematoma of the forehead. 10. Gallbladder surgery. 11. Glaucoma. 12. Hernia repair. 13. Hysterectomy. 14. Diabetes. 15. MRI of the back. 16. Stroke in 2005. 17. Nerve block. 18. Partial seizures. 19. Pneumonia. 20. She had shingles twice. 21. Strokes were present on 2000 at [facility]. 22. She had injuries including broken ankle, right hand stitches and traumatic hematoma of the forehead as well as 1985 broken nose. Patient at the emergency room was noted to have diarrhea and diagnosis was made for dehydration for causing presyncope and patient was subsequently admitted from there. HOME MEDICATIONS She is on: 1. Glimepiride 1 mg p.o. daily. 2. Januvia 100 mg p.o. daily. 3. Levemir 12 units at bedtime. 4. Jardiance 10 mg p.o. daily. 5. Nexium 40 mg daily. 6. Lasix 40 mg p.r.n. 7. Potassium chloride 40 mEq daily. 8. Amitriptyline 25 mg p.o. daily. 9. Plavix 75 mg at bedtime. 10. Crestor 10 mg at bedtime. 11. Aspirin 81 mg p.o. daily. 12. Albuterol sulfate q.i.d. ALLERGIES DILTIAZEM, ARICEPT, ADVAIR DISKUS AND METFORMIN. FAMILY HISTORY She has a daughter with thyroid problems. SOCIAL HISTORY Does not smoke or drink. REVIEW OF SYSTEMS No fever or chills. HEENT: No hearing changes. Respiratory: No cough or respiratory distress. Genitourinary: No dysuria, frequency or burning. No headaches or generalized weakness. PHYSICAL EXAMINATION The following vitals are obtained: The patient's temperature is 96, pulse is 60, respirations 20, blood pressure is 105/74, pulse oximetry is 89%-92%. HEENT: Normocephalic, atraumatic. No discharge from mouth or ears. Neck: Supple. Chest: Breath sounds heard bilaterally. Heart: Regular rate and rhythm. Abdomen: Soft and nontender. Extremities: No clubbing, cyanosis or pedal edema. Neurological: Patient is awake and alert, answering questions appropriately. OTHER LAB DATA Her GFR is 59. WBC count is 8.8, hemoglobin is 14.5, crit is 43, platelets are 332. Sodium 144, potassium is 3.7, chloride is 106, creatinine is 0.94. Anion gap is 19. UA: Glucose was more than 1000, rest is essentially negative. C. diff toxin has been negative. Lactate is 1.4. IMPRESSION 1. Near syncope. Unclear etiology, possibly secondary to dehydration. Patient had recent onset of diarrhea. Patient also has a longstanding cardiac history. 2. Chest pain. Will rule out for NM protocol. May need a consultation with Cardiology, depends on the outcome. Patient has a longstanding history including cardiac catheterization done before, has atrial fibrillation in the past. 3. History of transient ischemic attacks and cerebrovascular accident. On Plavix and aspirin at this time. Will continue presently. 4. History of anticoagulation to be addressed as per Dr. Valencia who she seems to be following on a regular basis. 5. Other history includes familial spastic paraplegia, cholecystectomy, hernia repair, hysterectomy, diabetes, CVA with new onset history of pneumonia 3 times. Patient has history of shingles as well. PLAN Patient has a fairly complicated past medical history. Will at the present time evaluate for patient had some active chest pain and syncope. She will be on a monitored setting, presently is in sinus rhythm. Will place patient on DVT prophylaxis and sliding scale insulin coverage. C. diff has been coming negative. Patient will be given gentle rehydration. MEDICAL NECESSITY STATEMENT Expected stay is more than 2 midnights. Time spent for evaluation as well as reviewing history is more than 40 minutes. Electronically Authenticated and Edited by: Migue Gama MD On 02/12/2016 05:23 PM CDT Migue Gama M.D. /conrad TD: 02/11/2016 18:13 documented in this encounter Consult Notes * Provider, MD Desiree - 02/12/2016 12:00 AM CDT CONSULTATION REPORT Patient: LOC ANDERSON Service Date: 02/12/2016 Account: [id number] Room No: 2614-01 : 1940 Patient Type: IP Attend.: Rony Chen M.D. Admit Date: 02/11/2016 Consult: Nelson Corona M.D. F.A.C.C. Disch. Date: 02/12/2016 CARDIOLOGY CONSULT NOTE CONSULTING PHYSICIAN Nelson Corona MD, [facility] REASON FOR CONSULTATION Near syncope -- rule out NM. HISTORY OF PRESENT ILLNESS Loc Anderson is a pleasant 75-year-old female who has seen Dr. Valencia on a regular basis. She was just seen by Dr. Valencia about 2 weeks ago. She apparently was seen at another hospital for atrial fibrillation. She converted to sinus rhythm briefly thereafter. Dr. Valencia placed the patient on sotalol 80 mg p.o. b.i.d. and also verapamil 180 mg p.o. daily. Recent event monitor actually did not show anything. There were no long pauses and there was no evidence of recurrent atrial fibrillation. The report that was read by Dr. Jasmine did not mention a minimum heart rate. Patient apparently has never been told that she needs a pacemaker. When she came in this time, she had an onset of feeling faint and also nausea while sitting on the toilet. She felt weak but did not pass out completely. She was able to get herself on the walker that has a seat on it. She got out to the kitchen and found her there very weak and not communicating very well. He had to prop her up against the wall. 9-1-1 was called and they took over. There was no mention of any slow heart rate but there was apparently a low blood pressure. Patient was admitted and actually was ruled out for an NM by 2 sets of cardiac enzymes. The only abnormality noted on the monitor was bradycardia down to the mid 40s. Patient is taking sotalol and verapamil as mentioned above. No recent syncope or palpitation. SMOKING None. ALCOHOL None. FAMILY HISTORY Brother had a pacemaker and also had a stent in his 70s. MEDICAL HISTORY 1. Hypertension. 2. Diabetes mellitus. 3. Dyslipidemia. 4. Coronary artery disease, moderate by cath in 2010. 5. Paroxysmal atrial fibrillation in October of 2015. Currently, sinus rhythm on sotalol. 6. Some sort of demyelinating disease called familial spastic paraplegia. 7. GE reflux disease. 8. Obstructive sleep apnea for which he is already on a CPAP machine. PHYSICAL EXAMINATION Blood pressure 137/71, pulse of 45 and regular in sinus bradycardia. Patient is afebrile. General: She is a moderately overweight female with mcdaniel hair. She has glasses. She has O2 cannula in place. She looked quite comfortable lying in bed when I walked in. is sitting by the window on the sofa. Patient is alert and oriented x3, and denies any chest pain. No chest wall tenderness to palpation. Extremities: Rather large bilateral lower extremities, 1+ pitting edema noted bilaterally. Left wrist has a yellow band. Lungs: Diminished breath sounds but fairly clear to auscultation bilaterally. Heart: Rather slow but regular. No gallops with grade 2/6 systolic murmur along the left sternal border. EKG Sinus rhythm at 60 beats per minute with a leftward axis. No acute changes. ASSESSMENT AND PLAN This is a 75-year-old female with a near syncopal episode while sitting on the toilet. It sounds like a vagal episode, as the blood pressure was apparently low by the time paramedics got there. Unfortunately, no one got a pulse nor was it mentioned in the report. Patient has not shown anything overnight other than bradycardia when she is comfortable lying in bed. She was not symptomatic when I saw her with a heart rate of 45 beats per minute. There is a chance that she might need a permanent pacemaker in the near future. This is especially so if she has the need for sotalol and verapamil to prevent further episodes of atrial fibrillation. Let us see what she will do on the monitor for the next 30 days. She is advised to follow up with Dr. Valencia as scheduled. She was also advised not to drive a car or to do anything dangerous like swimming or climbing up a ladder, etc. Findings and plan discussed with Dr. Chen in person. Electronically Authenticated and Edited by: Nelson Corona MD On 02/14/2016 05:05 PM CDT Nelson Corona M.D. F.A.C.C. [facility] TD: 02/12/2016 17:03 CC: Jhoanny Parry M.D. Saad Bitar, M.D. F.A.C.C. F.S[facility]C.A.I. documented in this encounter Plan of Treatment Not on file documented as of this encounter Procedures Procedure Name Priority Date/Time Associated Diagnosis Comments BLOOD GLUCOSE, POC Routine 02/12/2016 5: 08 PM CDT BLOOD GLUCOSE, POC Routine 02/12/2016 12 :19 PM CDT BLOOD GLUCOSE, POC Routine 02/12/2016 7: 55 AM CDT PLASMA TROPONIN-T Routine 02/12/2016 3:3 7 AM CDT SERUM ESTIMATED GLOMERULAR FILTRATION RATE Routine 02/12/2016 3:37 AM CDT PLASMA BASIC METABOLIC PANEL Routine 02/12/2016 3:37 AM CDT BLOOD CELL COUNT (CBC) Routine 6 3:37 AM CDT BLOOD CELL MORPHOLOGIC EXAM Routine 02/12/2016 3:37 AM CDT BLOOD GLUCOSE, POC Routine 02/12/2016 2: 14 AM CDT ELECTROCARDIOGRAPHY (ECG) 02/12/2016 DISCHARGE LABORATORY CUMULATIVE REPORT 02/12/2016 BLOOD GLUCOSE, POC Routine 02/11/2016 9: 15 PM CDT PLASMA TROPONIN-T Routine 02/11/2016 9:1 4 PM CDT BLOOD GLUCOSE, POC Routine 02/11/2016 5: 03 PM CDT BLOOD GLUCOSE, POC Routine 02/11/2016 3: 41 PM CDT STAPH AUREUS (MRSA/MSSA) CULTURE, CDR Routine 02/11/2016 2:45 PM CDT URINALYSIS Routine 02/11/2016 2:40 PM CDT XR CHEST 1 VIEW Routine 02/11/2016 1:47 PM CDT GIARDIA/CRYPTOSPORIDIUM EIA, CDR Routine 02/11/2016 1:34 PM CDT ENTERIC PATHOGEN CULTURE, CDR Routine 02/11/2016 1:34 PM CDT CLOSTRIDIUM DIFFICILE, CDR Routine 02/10 1:34 PM CDT BLOOD CULTURE, CDR Routine 02/11/2016 1: 18 PM CDT BLOOD CULTURE, CDR Routine 02/11/2016 1: 10 PM CDT SERUM ESTIMATED GLOMERULAR FILTRATION RATE Routine 02/11/2016 1:10 PM CDT PLASMA COMPREHENSIVE METABOLIC PANEL Routine 02/11/2016 1:10 PM CDT BLOOD LACTIC ACID Routine 02/11/2016 1:1 0 PM CDT BLOOD CELL COUNT (CBC) Routine 6 1:10 PM CDT BLOOD CELL MORPHOLOGIC EXAM Routine 02/11/2016 1:[address] HEAD WO CONTRAST Routine 02/11/2016 1 :00 PM CDT BLOOD GLUCOSE, POC Routine 02/11/2016 12 :29 PM CDT ELECTROCARDIOGRAPHY (ECG) 02/11/2016 documented in this encounter Results * (ABNORMAL) Blood glucose, POC (02/12/2016 5:08 PM CDT) Glucose, POC, bld 129(H) 71 - 98 mg/dl CDR HISTORICAL RESULTS Blood specimen (specimen) 02/12/2016 5:08 PM CDT Rony Chen MD LAB BLOOD ORDERABLES Final Re sult Performing Organization Address [facility] Co de Phone Number CDR HISTORICAL RESULTS * (ABNORMAL) Blood glucose, POC (02/12/2016 12:19 PM CDT) Glucose, POC, bld 158(H) 71 - 98 mg/dl CDR HISTORICAL RESULTS Blood specimen (specimen) 02/12/2016 12:19 PM CDT Rony Chen MD LAB BLOOD ORDERABLES Final Re sult Performing Organization Address [facility] Co de Phone Number CDR HISTORICAL RESULTS * Blood glucose, POC (02/12/2016 7:55 AM CDT) Glucose, POC, bld 88 71 - 98 mg/dl CDR HISTORICAL RESULTS Blood specimen (specimen) 02/12/2016 7:55 AM CDT Rony Chen MD LAB BLOOD ORDERABLES Final Re sult Performing Organization Address [facility] Co de Phone Number CDR HISTORICAL RESULTS * Plasma troponin-T (02/12/2016 3:37 AM CDT) [facility] Troponin T <0.01 0.00 - 0.06 ng/ml CDR HISTORICAL RESULTS Comment: Interpretive Data Troponin table: ? Negative ? 0.00-0.06 ng/ml ? Indeterminate ?0.07-0.10 ng/ml ? Consistent with Myocardial Injury ?Greater than 0.10 ng/ml ?? Current interpretive data was last revised on 2014 Plasma 02/12/2016 3:37 AM CDT us Historical Provider LAB BLOOD ORDERABLES Bárbara l Result CDR HISTORICAL RESULTS * Plasma basic metabolic panel (02/12/2016 3:37 AM CDT) [facility] Sodium 143 135 - 145 mmol/L CDR HISTORICAL RESULTS K, pl 3.5 3.5 - 5.1 mmol/L CDR HISTORICAL RESULTS Chloride 108 97 - 110 mmol/L CDR HISTORICAL RESULTS CO2 23 22 - 32 mmol/L CDR HISTORICAL RESULTS A. gap 16 8 - 16 mmol/L CDR HISTORICAL RESULTS Glucose 94 70 - 199 mg/dl CDR HISTORICAL RESULTS Comment: Interpretive Data Note:The glucose is assumed non fasting Fastin-99 mg/dL Random: ??70-199 mg/dL Either a fasting glucose > 126 mg/dL or a random glucose > 200 mg/dL plus symptoms is diagnostic of diabetes when confirmed on another day. Fasting values > 100 mg/dL but < 125 mg/dL are diagnostic of impaired fasting glucose. Current interpretive data was last revised on 2014. BUN 13.9 8.0 - 25.0 mg/dl CDR HISTORICAL RESULTS Creatinine 0.74 0.60 - 1.10 mg/dl CDR HISTORICAL RESULTS Calcium 9.6 8.6 - 10.2 mg/dl CDR HISTORICAL RESULTS BUN/creat ratio 19 10 - 20 CDR HISTORICAL RESULTS Plasma 02/12/2016 3:37 AM CDT Historical Provider LAB BLOOD ORDERABLES Bárbara mcdaniel Result Performing Organization Address [facility] de Phone Number CDR HISTORICAL RESULTS * Serum estimated glomerular filtration rate (02/12/2016 3:37 AM CDT) eGFR >60 ml/min/1.7 3 m2 CDR HISTORICAL RESULTS Comment: Interpretation of Estimated GFR (eGFR): Normal ?>/= 60 mL/min/1.73m2 Possible Chronic Kidney Disease ??15 - 59 mL/min/1.73m2 Possible Kidney Failure ?< 15 ??mL/min/1.73m2 If -[place] multiply value by 1.16. ??Estimated glomerular filtration rate is determined by the CKD-EPI equation recommended by the National Kidney Foundation (KDIGO 2012 Clinical Practice Guideline for the Evaluation and Management of Chronic Kidney Disease. ??Kidney Intnl Suppl May 2012;3:1). ??The CKD-EPI equation should not be used in acute renal failure or acute kidney injury and is not valid in children. Serum 02/12/2016 3:37 AM CDT Historical Provider LAB BLOOD ORDERABLES Bárbara mcdaniel Result Performing Organization Address [facility] de Phone Number CDR HISTORICAL RESULTS * (ABNORMAL) Blood cell count (CBC) (02/12/2016 3:37 AM CDT) WBC 12.4(H) 3.8 - 9.8 K/cumm CDR HISTORICAL RESULTS RBC 4.37 3.90 - 5.00 M/cumm CDR HISTORICAL RESULTS Hgb 12.7 12.1 - 15.1 g/dl CDR HISTORICAL RESULTS Hct 38.0 36.1 - 44.3 % CDR HISTORICAL RESULTS MCV 87.0 80.0 - 100.0 fl CDR HISTORICAL RESULTS MCH 29.1 26.7 - 33.7 pg CDR HISTORICAL RESULTS MCHC 33.4 32.7 - 36.0 g/dl CDR HISTORICAL RESULTS Rdw 14.0 11.5 - 14.6 % CDR HISTORICAL RESULTS Platelets 279 140 - 440 K/cumm CDR HISTORICAL RESULTS MPV 10.9 8.0 - 12.0 fl CDR HISTORICAL RESULTS NRBC 0.0 0.0 - 0.0 % CDR HIST ORICAL RESULTS NRBC, abs 0.00 0.00 - 0.00 K/cumm CDR HISTORICAL RESULTS Blood specimen (specimen) 02/12/2016 3:37 AM CDT us Historical Provider LAB BLOOD ORDERABLES Bárbara l Result Performing Organization Address City/State/[facility] Co de Phone Number CDR HISTORICAL RESULTS * (ABNORMAL) Blood cell morphologic exam (02/12/2016 3:37 AM CDT) Neutrophils 76.8 44.0 - 80.0 % CDR HISTORICAL RESULTS Immature granulocytes 0.4 0.0 - 1.0 % CDR HISTORICAL RESULTS Lymphocytes 12.8(L) 13.0 - 44.0 % CDR HISTORICAL RESULTS Monos 8.0 2.0 - 11.0 % CDR HISTORICAL RESULTS Eosinophils 1.8 0.0 - 6.0 % CDR HISTORICAL RESULTS Basophils 0.2 0.0 - 3.0 % CDR HISTORICAL RESULTS Neutrophils, abs 9.5(H) 1.6 - 7.0 K/cumm CDR HISTORICAL RESULTS Immature granulocyte, abs 0.0 0.0 - 0.2 K/cumm CDR HISTORICAL RESULTS Lymphocytes, abs 1.6 0.5 - 4.3 K/cumm CDR HISTORICAL RESULTS Monocytes, absolute 1.0 0.1 - 1.0 K/cumm CDR HISTORICAL RESULTS Eosinophils, abs 0.2 0.0 - 0.6 K/cumm CDR HISTORICAL RESULTS Basophils, abs 0.0 0.0 - 0.3 K/cumm CDR HISTORICAL RESULTS Blood specimen (specimen) 02/12/2016 3:37 AM CDT us Historical Provider LAB BLOOD ORDERABLES Bárbara l Result CDR HISTORICAL RESULTS * Blood glucose, POC (02/12/2016 2:14 AM CDT) Glucose, POC, bld 90 71 - 98 mg/dl CDR HISTORICAL RESULTS Blood specimen (specimen) 02/12/2016 2:14 AM CDT Rony Chen MD LAB BLOOD ORDERABLES Final Re sult Performing Organization Address [facility] de Phone Number CDR HISTORICAL RESULTS * DISCHARGE LABORATORY CUMULATIVE REPORT (02/12/2016) Narrative 02/12/2016 Ordered by an unspecified provider. Historical Provider LAB BLOOD ORDERABLES Bárbara l Result * ELECTROCARDIOGRAPHY (ECG) (02/12/2016) Narrative 02/12/2016 Ordered by an unspecified provider. Result [facility] Historical Provider ECG ORDERABLES Final Res ult * (ABNORMAL) Blood glucose, POC (02/11/2016 9:15 PM CDT) Glucose, POC, bld 208(H) 71 - 98 mg/dl CDR HISTORICAL RESULTS Comment:Glu2: RN/ Notified Blood specimen (specimen) 02/11/2016 9:[address] [facility] Rony Chen MD LAB BLOOD ORDERABLES Final Re sult Performing Organization Address [facility] de Phone Number CDR HISTORICAL RESULTS * Plasma troponin-T (02/11/2016 9:14 PM CDT) Troponin T <0.01 0.00 - 0.06 ng/ml CDR HISTORICAL RESULTS Comment: Interpretive Data Troponin table: ? Negative ? 0.00-0.06 ng/ml ? Indeterminate ?0.07-0.10 ng/ml ? Consistent with Myocardial Injury ?Greater than 0.10 ng/ml ?? Current interpretive data was last revised on 2014 Plasma 02/11/2016 9:14 PM CDT us Historical Provider LAB BLOOD ORDERABLES Bárbara l Result Performing Organization Address [facility]/ZIP Co de Phone Number CDR HISTORICAL RESULTS * (ABNORMAL) Blood glucose, POC (02/11/2016 5:03 PM CDT) Glucose, POC, bld 152(H) 71 - 98 mg/dl CDR HISTORICAL RESULTS Blood specimen (specimen) 02/11/2016 5:03 PM CDT Rony Chen MD LAB BLOOD ORDERABLES Final Re sult Performing Organization Address [facility] Co de Phone Number CDR HISTORICAL RESULTS * (ABNORMAL) Blood glucose, POC (02/11/2016 3:41 PM CDT) Glucose, POC, bld 153(H) 71 - 98 mg/dl CDR HISTORICAL RESULTS Blood specimen (specimen) 02/11/2016 3:41 PM CDT Rony Chen MD LAB BLOOD ORDERABLES Final Re sult Performing Organization Address [facility] [facility] Co de Phone Number CDR HISTORICAL RESULTS * Staph aureus (MRSA/MSSA) Culture (02/11/2016 2:45 PM CDT) Nasal (Unknown) 02/11/2016 2 :45 PM CDT Impressions CDR HISTORICAL RESULTS - 02/13/2016 7:16 AM CDT Test performed at [facility], [address] [facility], [place]., [address] Narrative CDR HISTORICAL RESULTS - 02/13/2016 7:16 AM CDT Negative us Historical Provider LAB MICROBIOLOGY - GENERA L ORDERABLES Final Result Performing Organization Address [facility] Co de Phone Number CDR HISTORICAL RESULTS * (ABNORMAL) Urinalysis (02/11/2016 2:40 PM CDT) Color, ur Yellow Yellow CDR HISTOR ICAL RESULTS Clarity, ur Clear Clear CDR HIST ORICAL RESULTS Specific gravity, ur 1.013 1.003 - 1.030 CDR HISTORICAL RESULTS Comment:Normal Ranges: 1.003 -1.030 pH, ur 6.0 4.5 - 8.0 CDR HISTOR ICAL RESULTS Comment:Normal ranges: 4.5-8 .0 Protein, ur, quant Negative Negative mg/dl CDR HISTORICAL RESULTS Glucose, ur, quant >=1000(A) Negative mg/dl CDR HISTORICAL RESULTS Ketones, ur Negative Negative CDR HIST ORICAL RESULTS Bilirubin, ur Negative Negative CDR HI STORICAL RESULTS U Blood Negative Negative CDR HISTOR ICAL RESULTS Urobilinogen, quant, ur 1.0 0.2 - 1.0 Dalia Units/dl CDR HISTORICAL RESULTS Comment:Normal Ranges: 0.2-1 .0 EU/dL Nitrites, ur Negative Negative CDR HIS TORICAL RESULTS Leukocyte esterase, ur Negative Negative CDR HISTORICAL RESULTS Urine 02/11/2016 2:40 PM CDT us Historical Provider LAB BLOOD ORDERABLES Bárbara l Result CDR HISTORICAL RESULTS * XR Chest 1 View (02/11/2016 1:47 PM CDT) Anatomical Region Laterality Modality Body, Chest N/A Radiographic Mireya ging 02/11/2016 1:47 PM CDT Narrative 02/12/2016 5:56 PM CDT XR Chest 1 View ? [id number] ??Acc#: ??[id number] DATE OF EXAM: ??Feb 11 2016 CLINICAL HISTORY: Fever. Chest pressure. RESULT: Portable AP projection obtained with the patient erect. Patient is somewhat rotated. Compared with 05/22/2013. Mild cardiomegaly. Pulmonary vascularity upper range of normal. No lung consolidation identified. Costophrenic angles are sharp. Opacity right cardiophrenic angle most commonly represents fat pad, this is similar to previously. Slight accentuation of interstitial markings, which may be partly technical in nature. This may represent chronic change. This is similar to the prior study. Arteriosclerotic changes of the aorta. Degenerative changes of thoracic spine with spurring. Cardiac monitoring electrodes superimposed on the chest. IMPRESSION: 1. ??NO ACUTE PULMONARY DISEASE. 2. ??MILD CARDIOMEGALY. Interpreting Physician: ??GUNJAN BOOKER M.D. ??Read on: ??Feb 11 2016 ??2:57P Transcribed by: ??TXD ??On: Feb 12 2016 10:57A Approved Electronically by: ??GUNJAN BOOKER M.D. ??on: ??Feb 12 2016 ??5:55P Attending: ??RONY CHEN Requesting: ??TRENTON HERNANDEZ Requesting Fax: ??-- Attending Fax: ??-- Attending ID: ??[id number] Requesting ID: ??[id number] Report To 1 ID: ??[id number] Report To 1 Name: ??RONY CHEN Report To 1 FAX: ??-- NextGen Order #: Procedure Note Provider, MD Desiree - 09/11/2016 XR Chest 1 View [id number] Acc#: [id number] DATE OF EXAM: Feb 11 2016 CLINICAL HISTORY: Fever. Chest pressure. RESULT: Portable AP projection obtained with the patient erect. Patient issomewhat rotated. Compared with 05/22/2013. Mild cardiomegaly. Pulmonaryvascularity upper range of normal. No lung consolidation identified.Costophrenic angles are sharp. Opacity right cardiophrenic angle mostcommonly represents fat pad, this is similar to previously. Slightaccentuation of interstitial markings, which may be partly technical innature. This may represent chronic change. This is similar to the priorstudy. Arteriosclerotic changes of the aorta. Degenerative changes ofthoracic spine with spurring. Cardiac monitoring electrodes superimposedon the chest. IMPRESSION: 1. NO ACUTE PULMONARY DISEASE. 2. MILD CARDIOMEGALY. Interpreting Physician: GUNJAN BOOKER M.D. Read on: Feb 11 2016 2:57P Transcribed by: TXD On: Feb 12 2016 10:57A Approved Electronically by: GUNJAN BOOKER M.D. on: Feb 12 2016 5:55P Attending: RONY CHEN Requesting: TRENTON HERNANDEZ Requesting Fax: -- Attending Fax: -- Attending ID: [id number] Requesting ID: [id number] Report To 1 ID: [id number] Report To 1 Name: RONY CHEN Report To 1 FAX: -- NextGen Order #: Historical Provider MD GOMES XR PROCEDURES Final R esult * Giardia/Cryptosporidium EIA (02/11/2016 1:34 PM CDT) Stool (Unknown) 02/11/2016 1 :34 PM CDT Impressions CDR HISTORICAL RESULTS - 02/12/2016 4:46 AM CDT Specimens will be held in the laboratory for 7 days. ??During this time, a complete ova and parasites examination can be requested by calling Laboratory Customer Service . ??The complete ova and parasites exam may be useful when there is persistent diarrhea and a negative test for Giardia and Cryptosporidium, especially when the patient has recently traveled or resided outside the [place]. ?? Current interpretive data was last revised on 05. Test performed at [facility], [address] [facility], [place] [address] Narrative CDR HISTORICAL RESULTS - 02/12/2016 4:46 AM CDT No Giardia/Cryptosporidium antigen detected. Historical Provider LAB MICROBIOLOGY - GENERA L ORDERABLES Final Result Performing Organization Address [facility] Co de Phone Number CDR HISTORICAL RESULTS * Clostridium difficile (02/11/2016 1:34 PM CDT) Stool (Unknown) 02/11/2016 1 :34 PM CDT Narrative CDR HISTORICAL RESULTS - 02/11/2016 2:37 PM CDT Negative Clostridium difficile toxin not detected Historical Provider LAB MICROBIOLOGY - GENERA L ORDERABLES Final Result CDR HISTORICAL RESULTS * Enteric pathogen culture (02/11/2016 1:34 PM CDT) Stool (Unknown) 02/11/2016 1 :34 PM CDT Impressions CDR HISTORICAL RESULTS - 02/14/2016 8:28 AM CDT Organisms routinely cultured for include Salmonella, Shigella, Campylobacter, E. coli O157, Yersinia, Aeromonas and Plesiomonas. In addition, an enzyme immunoassay to detect Shiga-toxin is performed. Shiga-toxin is produced by E. coli O157:H7 as well as some other serotypes that can produce similar disease manifestations. ??Vibrio species are cultured only upon request. ?? Current interpretive data was last revised on 2015. Narrative CDR HISTORICAL RESULTS - 02/14/2016 8:28 AM CDT Negative Historical Provider MD LAB MICROBIOLOGY - GENERA L ORDERABLES Final Result Performing Organization Address [facility] de Phone Number CDR HISTORICAL RESULTS * Blood culture (02/11/2016 1:18 PM CDT) Blood specimen (specimen) (Peripheral) 02/11/2016 1:18 PM CDT Impressions CDR HISTORICAL RESULTS - 02/17/2016 6:32 AM CDT 1)Bloodstream infection is likely to be catheter related if the time to culture positivity of a blood culture drawn through the catheter is at least 2.5 hours LESS than the time to positivity of a percutaneous culture of the same volume drawn at the same time,using the same media type. 2)Cultures are monitored continuously. ??The first negative report is issued within 24 hours of receipt in the laboratory. ?? 3)For optimal blood culture results, the recommended volume of blood to collect for pediatric patients is 1 mL of blood per year of patient age, up to 15 mL, per blood culture set. ??For adult patients, 20 mL of blood is recommended per culture set. ?? Failure to collect an optimal blood volume can result in false negative blood cultures. 4)All positive cultures are called per the critical call protocol as soon as they are detected. Current interpretive data was lasted revised on 12/14/2015. Narrative CDR HISTORICAL RESULTS - 02/17/2016 6:32 AM CDT No growth us Historical Provider LAB MICROBIOLOGY - GENERA L ORDERABLES Final Result Performing Organization Address [facility] de Phone Number CDR HISTORICAL RESULTS * Blood lactic acid (02/11/2016 1:10 PM CDT) Lactic acid 1.4 0.5 - 2.2 mmol/L CDR HISTORICAL RESULTS Blood specimen (specimen) 02/11/2016 1:10 PM CDT us Historical Provider LAB BLOOD ORDERABLES Bárbara jonas Result CDR HISTORICAL RESULTS * (ABNORMAL) Plasma comprehensive metabolic panel (02/11/2016 1:10 PM CDT) Sodium 144 135 - 145 mmol/L CDR HISTORICAL RESULTS K, pl 3.7 3.5 - 5.1 mmol/L CDR HISTORICAL RESULTS Chloride 106 97 - 110 mmol/L CDR HISTORICAL RESULTS CO2 23 22 - 32 mmol/L CDR HISTORICAL RESULTS A. gap 19(H) 8 - 16 mmol/L CDR HISTORICAL RESULTS Glucose 207(H) 70 - 199 mg/dl CDR HISTORICAL RESULTS Comment: Interpretive Data Note:The glucose is assumed non fasting Fastin-99 mg/dL Random: ??70-199 mg/dL Either a fasting glucose > 126 mg/dL or a random glucose > 200 mg/dL plus symptoms is diagnostic of diabetes when confirmed on another day. Fasting values > 100 mg/dL but < 125 mg/dL are diagnostic of impaired fasting glucose. Current interpretive data was last revised on 2014. BUN 17.8 8.0 - 25.0 mg/dl CDR HISTORICAL RESULTS Creatinine 0.94 0.60 - 1.10 mg/dl CDR HISTORICAL RESULTS BUN/creat ratio 19 10 - 20 CDR HISTORICAL RESULTS Calcium 9.6 8.6 - 10.2 mg/dl CDR HISTORICAL RESULTS Protein, sr 6.2 6.0 - 8.4 g/dl CDR HISTORICAL RESULTS Alb 3.8 3.6 - 5.0 g/dl CDR HISTORICAL RESULTS Alk phos 92 40 - 130 Units/L CDR HISTORICAL RESULTS ALT 30 5 - 45 Units/L CDR HISTORICAL RESULTS AST 25 10 - 40 Units/L CDR HISTORICAL RESULTS Bilirubin 0.5 <=1.2 mg/dl CDR HISTORICAL RESULTS Plasma 02/11/2016 1:10 PM CDT us Historical Provider LAB BLOOD ORDERABLES Bárbara mcdaniel Result CDR HISTORICAL RESULTS * Blood cell count (CBC) (02/11/2016 1:10 PM CDT) WBC 8.8 3.8 - 9.8 K/cumm CDR HISTORICAL RESULTS RBC 4.95 3.90 - 5.00 M/cumm CDR HISTORICAL RESULTS Hgb 14.5 12.1 - 15.1 g/dl CDR HISTORICAL RESULTS Hct 43.2 36.1 - 44.3 % CDR HISTORICAL RESULTS MCV 87.3 80.0 - 100.0 fl CDR HISTORICAL RESULTS MCH 29.3 26.7 - 33.7 pg CDR HISTORICAL RESULTS MCHC 33.6 32.7 - 36.0 g/dl CDR HISTORICAL RESULTS Rdw 14.2 11.5 - 14.6 % CDR HISTORICAL RESULTS Platelets 332 140 - 440 K/cumm CDR HISTORICAL RESULTS MPV 10.5 8.0 - 12.0 fl CDR HISTORICAL RESULTS NRBC 0.0 0.0 - 0.0 % CDR HIST ORICAL RESULTS NRBC, abs 0.00 0.00 - 0.00 K/cumm CDR HISTORICAL RESULTS Blood specimen (specimen) 02/11/2016 1:10 PM CDT us Historical Provider LAB BLOOD ORDERABLES Bárbara l Result CDR HISTORICAL RESULTS * (ABNORMAL) Blood cell morphologic exam (02/11/2016 1:10 PM CDT) Pathologist [facility] Neutrophils 82.8(H) 44.0 - 80.0 % CDR HISTORICAL RESULTS Immature granulocytes 0.5 0.0 - 1.0 % CDR HISTORICAL RESULTS Lymphocytes 12.8(L) 13.0 - 44.0 % CDR HISTORICAL RESULTS Monos 3.1 2.0 - 11.0 % CDR HISTORICAL RESULTS Eosinophils 0.8 0.0 - 6.0 % CDR HISTORICAL RESULTS Basophils 0.0 0.0 - 3.0 % CDR HISTORICAL RESULTS Neutrophils, abs 7.3(H) 1.6 - 7.0 K/cumm CDR HISTORICAL RESULTS Immature granulocyte, abs 0.0 0.0 - 0.2 K/cumm CDR HISTORICAL RESULTS Lymphocytes, abs 1.1 0.5 - 4.3 K/cumm CDR HISTORICAL RESULTS Monocytes, absolute 0.3 0.1 - 1.0 K/cumm CDR HISTORICAL RESULTS Eosinophils, abs 0.1 0.0 - 0.6 K/cumm CDR HISTORICAL RESULTS Basophils, abs 0.0 0.0 - 0.3 K/cumm CDR HISTORICAL RESULTS Blood specimen (specimen) 02/11/2016 1:10 PM CDT Historical Provider LAB BLOOD ORDERABLES Bárbara l Result Performing Organization Address [facility] de Phone Number CDR HISTORICAL RESULTS * Serum estimated glomerular filtration rate (02/11/2016 1:10 PM CDT) [facility] eGFR 59 ml/min/1.7 3 m2 CDR HISTORICAL RESULTS Comment: Interpretation of Estimated GFR (eGFR): Normal ?>/= 60 mL/min/1.73m2 Possible Chronic Kidney Disease ??15 - 59 mL/min/1.73m2 Possible Kidney Failure ?< 15 ??mL/min/1.73m2 If -[place] multiply value by 1.16. ??Estimated glomerular filtration rate is determined by the CKD-EPI equation recommended by the National Kidney Foundation (KDIGO 2012 Clinical Practice Guideline for the Evaluation and Management of Chronic Kidney Disease. ??Kidney Intnl Suppl May 2012;3:1). ??The CKD-EPI equation should not be used in acute renal failure or acute kidney injury and is not valid in children. Serum 02/11/2016 1:10 PM CDT Historical Provider LAB BLOOD ORDERABLES Bárbara l Result Performing Organization Address [facility] Co de Phone Number CDR HISTORICAL RESULTS * Blood culture (02/11/2016 1:10 PM CDT) Blood specimen (specimen) (Peripheral) 02/11/2016 1:10 PM CDT Impressions CDR HISTORICAL RESULTS - 02/17/2016 6:32 AM CDT 1)Bloodstream infection is likely to be catheter related if the time to culture positivity of a blood culture drawn through the catheter is at least 2.5 hours LESS than the time to positivity of a percutaneous culture of the same volume drawn at the same time,using the same media type. 2)Cultures are monitored continuously. ??The first negative report is issued within 24 hours of receipt in the laboratory. ?? 3)For optimal blood culture results, the recommended volume of blood to collect for pediatric patients is 1 mL of blood per year of patient age, up to 15 mL, per blood culture set. ??For adult patients, 20 mL of blood is recommended per culture set. ?? Failure to collect an optimal blood volume can result in false negative blood cultures. 4)All positive cultures are called per the critical call protocol as soon as they are detected. Current interpretive data was lasted revised on 12/14/2015. Narrative CDR HISTORICAL RESULTS - 02/17/2016 6:32 AM CDT No growth us Historical Provider LAB MICROBIOLOGY - GENERA L ORDERABLES Final Result CDR HISTORICAL RESULTS * CT Head WO Contrast (02/11/2016 1:00 PM CDT) Anatomical Region Laterality Modality Head and Neck N/A Computed Tomogra phy 02/11/2016 1:00 PM CDT Narrative 02/12/2016 10:[address] [place] ?[id number] ??Acc#: ??[id number] DATE OF EXAM: ??Feb 11 2016 CLINICAL HISTORY: Syncopal episode. ??Weakness. RESULT: Helical CT scan of the abdomen obtained, noncontrast. ??Compared with 12/08/15. No acute intracranial hemorrhage identified. ??No midline shift is noted. Brainstem cisterns are intact. ??Mild atrophy and white matter changes, as previously. ??Some internal carotid artery calcification and vertebral artery calcification consistent with arteriosclerotic changes. IMPRESSION: 1. NO ACUTE INTRACRANIAL ABNORMALITY IDENTIFIED. 2. ATROPHY AND WHITE MATTER CHANGES. 3. CEREBROVASCULAR ARTERIOSCLEROSIS. REPORT CALLED TO DR. HERNANDEZ 02/11/16 AT 1:06 P.M. Interpreting Physician: ??GUNJAN BOOKER M.D. ??Read on: ??Feb 11 2016 ??1:12P Transcribed by: ??mrr ??On: Feb 12 2016 ??9:42A Approved Electronically by: ??GUNJAN BOOKER M.D. ??on: ??Feb 12 2016 10:27A Attending: ??RONY CHEN Requesting: ??TRENTON HERNANDEZ Requesting Fax: ??-- Attending Fax: ??-- Attending ID: ??[id number] Requesting ID: ??[id number] Report To 1 ID: ??[id number] Report To 1 Name: ??RONY CHEN Report To 1 FAX: ??-- NextGen Order #: Procedure Note Provider, Desiree, - 09/11/[place] [id number] Acc#: [id number] DATE OF EXAM: Feb 11 2016 CLINICAL HISTORY: Syncopal episode. Weakness. RESULT: Helical CT scan of the abdomen obtained, noncontrast. Compared with12/08/15. No acute intracranial hemorrhage identified. No midline shift isnoted. Brainstem cisterns are intact. Mild atrophy and white matterchanges, as previously. Some internal carotid artery calcification andvertebral artery calcification consistent with arteriosclerotic changes. IMPRESSION: 1. NO ACUTE INTRACRANIAL ABNORMALITY IDENTIFIED. 2. ATROPHY AND WHITE MATTER CHANGES. 3. CEREBROVASCULAR ARTERIOSCLEROSIS. REPORT CALLED TO DR. HERNANDEZ 02/11/16AT 1:06 P.M. Interpreting Physician: GUNJAN BOOKER M.D. Read on: Feb 11 2016 1:12P Transcribed by: gisel On: Feb 12 2016 9:42A Approved Electronically by: GUNJAN BOOKER M.D. on: Feb 12 2016 10:27A Attending: RONY CHEN Requesting: TRENTON HERNANDEZ Requesting Fax: -- Attending Fax: -- Attending ID: [id number] Requesting ID: [id number] Report To 1 ID: [id number] Report To 1 Name: RONY CHEN Report To 1 FAX: -- NextGen Order #: us Historical Provider MD GOMES CT PROCEDURES Final R esult * (ABNORMAL) Blood glucose, POC (02/11/2016 12:29 PM CDT) Glucose, POC, bld 200(H) 71 - 98 mg/dl CDR HISTORICAL RESULTS Blood specimen (specimen) 02/11/2016 12:29 PM CDT us Historical Provider LAB BLOOD ORDERABLES Bárbara l Result CDR HISTORICAL RESULTS * ELECTROCARDIOGRAPHY (ECG) (02/11/2016) Narrative 02/11/2016 Ordered by an unspecified provider. 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) Dehydration Paroxysmal atrial fibrillation (CMS/HCC) (HCC) Atrial fibrillation Type 2 diabetes mellitus without complications (CMS/HCC) (HCC) Hyperlipidemia Other and unspecified hyperlipidemia Obstructive sleep apnea Obstructive sleep apnea (adult) (pediatric) Glaucoma Unspecified glaucoma Essential (primary) hypertension Unspecified essential hypertension Atherosclerotic heart disease of [place] coronary artery without angina pectoris Uncomplicated asthma Gastro-esophageal reflux disease without esophagitis Irritable bowel syndrome with diarrhea Irritable bowel syndrome Personal history of other malignant neoplasm of skin Personal history of other infectious and parasitic diseases Personal history of transient ischemic attack (TIA), and cerebral infarction without residual deficits documented in this encounter Care Teams Glaze Mixer Relationship Specialty Start Date End Date Jarrell Garrison MD PCP - General 09/26/15 08/15/16 documented as of this encounter
--- OUTSIDE RECORDS SUMMARY | 2024-05-26 13:02 | XMS_ITS | Encounter Summary ---
Author Organization [facility] Healthcare Address [address] [place] [address] Care Team Providers Care Stonework Supervisor Name Role Phone Jarrell Garrison MD Primary Care Provider [phone] Encounter Details Date Type Department Care Team (Late st Contact Info) Description 04/26/2016 1:50 PM CALL OR CONTACT CENTRE COACH - 04/26/2016 11:59 PM [facility] Hospital Encounter [place] [id number] [address] Encounter for screening mammogram for malignant neoplasm of breast; Family history of malignant neoplasm of breast Social History Tobacco Use Types Packs/Day Years Used Date Smoking Tobacco: Never Alcohol Use Standard Drinks/Week Comments No 0 (1 standard drink = 0.6 oz pur e alcohol) Comments Unknown Sex and Gender Information Value Date Recorded Sex Assigned at Not on file Legal Sex Female 6:56 PM CALL OR CONTACT CENTRE COACH Gender Identity Not on file Sexual Orientation Not on file documented as of this encounter Medications at Time of Discharge albuterol HFA (PROAIR HFA) 90 mcg/actuation inhaler inhale 2 puff by inhalation route every 6 hours as needed 0 Inhaler 0 08/05/2014 8 amitriptyline (ELAVIL) 25 mg tablet take 1 tablet (25MG) by ORAL route every 24 hours with meals 0 01/10/2012 9 aspirin (ASPIRIN LOW DOSE) 81 mg tablet take 1 tablet by oral route every day 0 0 02/16/2016 1 clopidogrel (PLAVIX) 75 mg tablet TAKE ONE [...] affected eye(s)in the evening 0 07/18/2009 9 latanoprost (XALATAN) 0.005 % ophthalmic solution instill 1 drop by ophthalmic route every day into affected eye(s) in the evening 0 0 02/16/2016 9 rosuvastatin (CRESTOR) 10 mg tablet TAKE 1 TABLET BY MOUTH 1 TIME PER DAY AT BEDTIME 90 5 03/07/2009 1 SITagliptin (JANUVIA) 100 mg tablet take 1 tablet by oral route every day 30 5 03/10/2015 9 sotalol (BETAPACE) 80 mg tablet take 1 tablet by oral route 2 times every day 0 0 02/16/2016 8 verapamil SR (CALAN SR) 180 mg CR tablet take 1 tablet by oral route every day with food 0 0 02/16/2016 8 documented as of this encounter Plan of Treatment Not on file documented as of this encounter Procedures Procedure Name Priority Date/Time Associated Diagnosis Comments DIAGNOSTIC MAMMOGRAM BILATERAL W WILL Routine 04/26/2016 2:22 PM CALL OR CONTACT CENTRE COACH documented in this encounter Results * Diagnostic Mammogram Bilateral W Will (04/26/2016 2:22 PM CALL OR CONTACT CENTRE COACH) Anatomical Region Laterality Modality Breast Bilateral Mammography 04/26/2016 2:22 PM CALL OR CONTACT CENTRE COACH Narrative 04/26/2016 4:49 PM CALL OR CONTACT CENTRE COACH Acc#: ??[id number] [facility] 0034 - Screening Mamm W Will Bi DATE OF EXAM: ??Dec ??2015 ??2:22PM DIAGNOSIS: ??MAMMOGRAM CLINICAL HISTORY: ??SCREENING RESULT: ? DATE: 04/26/2016: BILATERAL SCREENING MAMMOGRAPHY WITH CAD AND TOMOSYNTHESIS: HISTORY: Routine screening with the patient's mother having had breast cancer at age 53. TECHNIQUE: Full field digital CC and MLO views are obtained with 2D and 3D imaging techniques including tomosynthesis and CAD analysis. COMPARISONS: 11/18/2013, 07/24/2012, 01/02/2011, 12/22/2009. FINDINGS: ??There is heterogeneous density throughout both breasts diminishing the conspicuity of early pathology. Bilateral nodular opacities are once again demonstrated. No suspicious changes of pathologic microcalcifications although numerous small benign calcifications are present bilaterally. IMPRESSION: ?\ BIRADS CATEGORY 2, BENIGN FINDINGS IN BOTH BREASTS. RECOMMEND CONTINUATION OF ANNUAL SCREENING MAMMOGRAPHY WITH ANNUAL PHYSICIAN BREAST EXAMINATION AND MONTHLY SELF BREAST EXAMINATION. IMPRESSION OF OVERALL ASSESSMENT: CATEGORY 2 - BENIGN. TECHNOLOGIST: ?? DIANE OSEGUERA TECHNOLOGIST MEDICAL IMAGING ARTIFICIAL STONE SETTER: ??LB3 TRANSCRIBE DATE/TIME: ??Dec ??9 2015 ??3:15P RADIOLOGIST: ??FUNMILAYO HEMPHILL M.D. ??READ ON: ??Dec ??2015 ??3:11P ORDERING DR: KASANDRA PAYNE M.D. ? THIS DOCUMENT HAS BEEN ELECTRONICALLY SIGNED BY: ??JOBY Orlando, FUNMILAYO ??ON: ??Dec ??9 2016 ??4:49P Attending: ??DEBBIE, ??KASANDRA Requesting: ??DEBBIE, ??KASANDRA Requesting Fax: ??[phone] Attending Fax: ??[phone] Attending ID: ??[id number] Requesting ID: ??[id number] Report To 1 ID: ?? Report To 1 Name: ??, ?? Report To 1 FAX: ??-- Report To 2 ID: ?? Report To 2 Name: ??, ?? Report To 2 FAX: ??-- NextGen Order #: ?? Procedure Note Provider, MD Desiree - 09/25/2016 Acc#: [id number] [facility] 0034 - Screening Mamm W Will Bi DATE OF EXAM: Apr 26 2016 2:22PM DIAGNOSIS: MAMMOGRAM CLINICAL HISTORY: SCREENING RESULT: DATE: 04/26/2016: BILATERAL SCREENING MAMMOGRAPHY WITH CAD AND TOMOSYNTHESIS: HISTORY: Routine screening with the patient's mother having had breast cancer at age 51. TECHNIQUE: Full field digital CC and MLO views are obtained with 2D and 3D imaging techniques including tomosynthesis and CAD analysis. COMPARISONS: 11/18/2013, 07/24/2012, 01/02/2011, 12/22/2009. FINDINGS: There is heterogeneous density throughout both breasts diminishing the conspicuity of early pathology. Bilateral nodular opacities are once again demonstrated. No suspicious changes of pathologic microcalcifications although numerous small benign calcifications are present bilaterally. IMPRESSION: \ BIRADS CATEGORY 2, BENIGN FINDINGS IN BOTH BREASTS. RECOMMEND CONTINUATION OF ANNUAL SCREENING MAMMOGRAPHY WITH ANNUAL PHYSICIAN BREAST EXAMINATION AND MONTHLY SELF BREAST EXAMINATION. IMPRESSION OF OVERALL ASSESSMENT: CATEGORY 2 - BENIGN. TECHNOLOGIST: DIANE OSEGUERA, TECHNOLOGIST MEDICAL IMAGING ARTIFICIAL STONE SETTER: JUMANA TRANSCRIBE DATE/TIME: Apr 26 2016 3:15P RADIOLOGIST: FUNMILAYO HEMPHILL M.D. READ ON: Apr 26 2016 3:11P ORDERING DR: KASANDRA PAYNE M.D. THIS DOCUMENT HAS BEEN ELECTRONICALLY SIGNED BY: FUNMILAYO HEMPHILL M.D. ON: Apr 26 2016 4:49P Attending: KASANDRA PAYNE Requesting: KASANDRA PAYNE Requesting Attending Attending ID: [id number] Requesting ID: [id number] Report To 1 ID: Report To 1 Name: , Report To 1 FAX: -- Report To 2 ID: Report To 2 Name: , Report To 2 FAX: -- NextGen Order #: us Historical Provider MD GOMES MAMMO PROCEDURES Bárbara l Result documented in this encounter Visit Diagnoses Diagnosis Encounter for screening mammogram for malignant neoplasm of breast Family history of malignant neoplasm of breast documented in this encounter Care Teams Stonework Supervisor Relationship Specialty Start Date End Date Jarrell Garrison MD PCP - General 09/26/15 08/15/16 documented as of this encounter
--- OUTSIDE RECORDS SUMMARY | 2024-05-26 13:02 | XMS_ITS | Encounter Summary ---
Author Organization [facility] Healthcare Address [address] [place] [address] Care Team Providers Care Vault Teller Name Role Phone Jarrell Garrison MD Primary Care Provider [phone] Encounter Details Date Type Department Care Team (Latest Contact Info) Description 09/25/2015 9:38 AM CDT - 09/25/2015 11:59 PM CDT Hospital Encounter [facility] [place] [id number] [address] Localized edema; Nonrheumatic mitral valve insufficiency Social History Tobacco Use Types Packs/Day Years Used Date Smoking Tobacco: Never Alcohol Use Standard Drinks/Week Comments No 0 (1 standard drink = 0.6 oz pur e alcohol) Comments Unknown Sex and Gender Information Value Date Recorded Sex Assigned at Not on file 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 RESULT: ECHOCARDIOGRAM REPORT PROCEDURE: ??2-D, M-mode and Doppler echocardiogram was attempted. ??This is a technically difficult study with all of the views somewhat suboptimal. There is mild calcification of the mitral annulus but with no critical stenosis. ??Aortic valve leaflets are slightly thickened but with no critical stenosis. ??Tricuspid and pulmonic leaflets appear normal. ??Mild concentric LVH but without any LV mural thrombus or valvular vegetations. ??LV function is hyperdynamic with estimated ejection fraction of 70-75%. Doppler echocardiogram reveals an aortic valve velocity of 1.7m/sec and a pulmonic valve velocity of 1.1m/sec. ??There is trivial mitral regurgitation. ??Mitral inflow velocity suggests presence of diastolic dysfunction. IMPRESSION: 1. TECHNICALLY DIFFICULT STUDY WITH ALL OF THE VIEWS SOMEWHAT SUBOPTIMAL. 2. CONCENTRIC LVH, MILD. 3. MILD CALCIFICATION AND THICKENING OF THE MITRAL ANNULUS AND ALSO THE AORTIC VALVE LEAFLETS. ??NO SIGNIFICANT STENOSIS. 4. HYPERDYNAMIC GLOBAL LV FUNCTION WITH ESTIMATED EJECTION FRACTION OF 70-75%. 5. NO LV MURAL THROMBUS OR VALVULAR VEGETATIONS. 6. MITRAL REGURGITATION, TRIVIAL. 7. PROBABLE DIASTOLIC DYSFUNCTION. Interpreting Physician: ??DR DARIN DIXON M.D. ??Read on: ??Sep 27 2015 11:00A Transcribed by: ??mrr ??On: Sep 28 2015 10:31A Approved Electronically by: ??DR DARIN DIXON M.D. ??on: ??Sep 29 2015 4:32P Attending: ??KASANDRA PAYNE Requesting: ??KASANDRA PAYNE Requesting Fax: ??-- Attending Fax: ??-- Attending ID: ??[id number] Requesting ID: ??[id number] Report To 1 ID: ??[id number] Report To 1 Name: ??KASANDRA PAYNE Report To 1 FAX: ??-- NextGen Order #: Procedure Note Provider, MD Desiree - 09/11/2016 ECHO CMPLT W DOPP WO CONT Acc#: [id number] ECHO CMPLT W DOPP WO CONT Acc#: [id number] DATE OF EXAM: Sep 25 2015 CLINICAL HISTORY: Edema, mitral regurgitation. RESULT: ECHOCARDIOGRAM REPORT PROCEDURE: 2-D, M-mode and Doppler echocardiogram was attempted. This george technically difficult study with all of the views somewhat suboptimal.There is mild calcification of the mitral annulus but with no criticalstenosis. Aortic valve leaflets are slightly thickened but with nocritical stenosis. Tricuspid and pulmonic leaflets appear normal. Mildconcentric LVH but without any LV mural thrombus or valvular vegetations.LV function is hyperdynamic with estimated ejection fraction of 70-75%.Doppler echocardiogram reveals an aortic valve velocity of 1.7m/sec and apulmonic valve velocity of 1.1m/sec. There is trivial mitralregurgitation. Mitral inflow velocity suggests presence of diastolicdysfunction. IMPRESSION: 1. TECHNICALLY DIFFICULT STUDY WITH ALL OF THE VIEWS SOMEWHATSUBOPTIMAL. 2. CONCENTRIC LVH, MILD. 3. MILD CALCIFICATION AND THICKENING OF THE MITRAL ANNULUS AND ALSO THEAORTIC VALVE LEAFLETS. NO SIGNIFICANT STENOSIS. 4. HYPERDYNAMIC GLOBAL LV FUNCTION WITH ESTIMATED EJECTION FRACTION OF70-75%. 5. NO LV MURAL THROMBUS OR VALVULAR VEGETATIONS. 6. MITRAL REGURGITATION, TRIVIAL. 7. PROBABLE DIASTOLIC DYSFUNCTION. Interpreting Physician: DR DARIN DIXON M.D. Read on: Sep 27 201511:00A Transcribed by: gisel On: Sep 28 2015 10:31A Approved Electronically by: DESTINY Orlando, DR WEBSTER on: Sep 29 20154:32P Attending: KASANDRA PAYNE Requesting: KASANDRA PAYNE Requesting Fax: -- Attending Fax: -- Attending ID: [id number] Requesting ID: [id number] Report To 1 ID: [id number] Report To 1 Name: KASANDRA PAYNE Report To 1 FAX: -- NextGen Order #: us Historical Provider CV ECHO PROCEDURES Final Result documented in this encounter Visit Diagnoses Diagnosis Localized edema Edema Nonrheumatic mitral valve insufficiency documented in this encounter Care Teams Vault Teller Relationship Specialty Start Date End Date Jarrell Garrison MD PCP - General 01/25/11 09/25/15 documented as of this encounter
--- OUTSIDE RECORDS SUMMARY | 2024-05-26 13:02 | XMS_ITS | Encounter Summary ---
Author Organization [facility] Healthcare Address [address] [place] [address] Care Team Providers Care Principal Security Architect Name Role Phone Theresa Camargo MD Primary Care Provider [phone] Reason for Visit * Reason Comments Irregular Heart Beat Encounter Details Date Type Department Care Team (Late st Contact Info) Description 03/05/2019 11:20 PM CDT - 03/08/2019 4:10 PM CDT Hospital Encounter [facility] [address] [place] [address] Christine Cardenas MD [address] [facility] [place] [address] Maria Del Rosario Vences MD [address] [place] [address] [place] [address] Roberto Ramos MD [address] [facility] [address] [place] [address] Doreen Quintero MD [address] [facility] [place] [address] [place] [id number] [address] Weakness generalized (Primary Dx) Discharge Disposition: Discharge to home [...] on file 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 Gender Identity Not on file Sexual Orientation Not on file documented as of this encounter Last Filed Vital Signs Vital Sign Reading Time Taken Comments Blood Pressure 143/64 03/08/2019 3:36 PM CDT Pulse 84 03/08/2019 3:36 PM CDT Temperature 36.4 ??C (97.6 ??F) 03/08/2019 3:36 PM CD T Respiratory Rate 20 03/08/2019 3:36 PM CDT Oxygen Saturation 94% 03/08/2019 3:36 PM CDT Inhaled Oxygen Concentration - - Weight 87.8 kg (193 lb 9 oz) 03/06/2019 6:00 AM CDT Height 165.1 cm (5' 5 ) 03/06/2019 6:00 AM CDT Body Mass Index 32.21 03/06/2019 6:00 AM CDT documented in this encounter Discharge Diagnoses Diagnosis Dizziness and giddiness - DIZZINESS AND GIDDINESS 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[facility]) - HEREDITARY SPASTIC PARAPLEGIA Hereditary spastic paraplegia Demyelinating disease of central nervous system, unspecified ([facility]) - DEMYELINATING DISEASE OF CENTRAL NERVOUS SYSTEM, UNSPECIFIED Demyelinating disease of central nervous system, unspecified Lymphedema, not elsewhere classified - LYMPHEDEMA, NOT ELSEWHERE CLASSIFIED Weakness - WEAKNESS Other malaise and fatigue Hypertensive heart disease with heart failure ([facility]) ([facility]) - HYPERTENSIVE HEART DISEASE WITH HEART FAILURE Unspecified hypertensive heart disease with heart failure Heart failure, unspecified ([facility]) ([facility]) - HEART FAILURE, UNSPECIFIED Heart failure, unspecified Sleep apnea, unspecified - SLEEP APNEA, UNSPECIFIED Type 2 diabetes mellitus without complications ([facility]) ([facility]) - TYPE 2 DIABETES MELLITUS WITHOUT COMPLICATIONS Atherosclerotic heart disease of [place] coronary artery without angina pectoris - ATHEROSCLEROTIC HEART DISEASE OF [place] CORONARY ARTERY WITHOUT ANGINA PECTORIS Hyperparathyroidism, unspecified ([facility]) - HYPERPARATHYROIDISM, UNSPECIFIED Hyperparathyroidism, unspecified Paroxysmal atrial fibrillation ([facility]) (HCC) - PAROXYSMAL ATRIAL FIBRILLATION Atrial fibrillation Irritable bowel syndrome without diarrhea - IRRITABLE BOWEL SYNDROME WITHOUT DIARRHEA Unspecified glaucoma - UNSPECIFIED GLAUCOMA Hypokalemia - HYPOKALEMIA Hypopotassemia Venous insufficiency (chronic) (peripheral) - VENOUS INSUFFICIENCY (CHRONIC) (PERIPHERAL) Unspecified venous (peripheral) insufficiency Gastro-esophageal reflux disease without esophagitis - GASTRO-ESOPHAGEAL REFLUX DISEASE WITHOUT ESOPHAGITIS Obesity, unspecified - OBESITY, UNSPECIFIED Hyperlipidemia, unspecified - HYPERLIPIDEMIA, UNSPECIFIED Unspecified asthma, uncomplicated - UNSPECIFIED ASTHMA, UNCOMPLICATED Personal history of transient ischemic attack (TIA), and cerebral infarction without residual deficits - PERSONAL HISTORY OF TRANSIENT ISCHEMIC ATTACK (TIA), AND CEREBRAL INFARCTION WITHOUT RESIDUAL DEFICI Personal history of malignant neoplasm of breast - PERSONAL HISTORY OF MALIGNANT NEOPLASM OF BREAST Acquired absence of both cervix and uterus - ACQUIRED ABSENCE OF BOTH CERVIX AND UTERUS Acquired absence of ovaries, bilateral - ACQUIRED ABSENCE OF OVARIES, BILATERAL Acquired absence of other genital organ(s) - ACQUIRED ABSENCE OF OTHER GENITAL ORGAN(S) Hormone replacement therapy - HORMONE REPLACEMENT THERAPY correction (current) use of antithrombotics/antiplatelets - 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) USE OF ANTITHROMBOTICS/ANTIPLATELETS intermediate project manager (current) use of aspirin - [facility] (CURRENT) USE OF ASPIRIN correction (current) use of oral hypoglycemic drugs - 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) USE OF ORAL HYPOGLYCEMIC DRUGS Family history of ischemic heart disease and other diseases of the circulatory system - FAMILY HISTORY OF ISCHEMIC HEART DISEASE AND OTHER DISEASES OF THE CIRCULATORY SYSTEM Family history of malignant neoplasm of breast - FAMILY HISTORY OF MALIGNANT NEOPLASM OF BREAST Presence of aortocoronary bypass graft - PRESENCE OF AORTOCORONARY BYPASS GRAFT correction (current) use of insulin (HCC) - 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) USE OF INSULIN Body mass index (bmi) 32.0-32.9, adult - BODY MASS INDEX (BMI) 32.0-32.9, ADULT Other residential (current) drug therapy - OTHER 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) DRUG THERAPY documented in this encounter Discharge Summaries * Junior Man MD - 03/08/2019 3:04 PM CDT Inpatient Discharge Summary BRIEF OVERVIEW Admitting Provider: Maria Del Rosario Vences MD Discharge Provider: Junior Man MD Primary Care Physician at Discharge: Theresa Camargo MD [phone] Admission Date: 03/05/2019 Discharge Date: 03/08/2019 Primary Discharge Diagnosis: Active Problems: Weakness generalized Lower extremity edema Secondary Discharge Diagnosis: Weakness generalized DETAILS OF HOSPITAL STAY Presenting Problem/History of Present Illness: No Principal Problem: There is no principal problem currently on the Problem List. Please update the Problem List and refresh. 78 y.o. 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 She was concerned that she was in A Fib with RVR so she decided to come into the emergency room. She states that this was similar to an episode she had about a year prior while she was in [place] and she wants to make sure that this time it was checked. It appears thatkelle has had a couple of episode over the past year that are similar but patient was not diagnosed to be in AFib with RVR. At presentation she was found to have lower extremity edema . She was hospitalized for treatment of weakness and peripheral edema. No finding of A Fib with RVR on admission . Hospital Course: 78 y.o. 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 She was concerned that she was in A Fib with RVR so she decided to come into the emergency room. She states that this was similar to an episode she had about a year prior while she was in [place] and she wants to make sure that this time it was checked. It appears thatkelle has had a couple of episode over the past year that are similar but patient was not diagnosed to be in AFib with RVR. At presentation she was found to have lower extremity edema . She was hospitalized for treatment of weakness and peripheral edema. No finding of A Fib with RVR on admission . She was started on lasix iv and Metolazone. Swelling much improved. Lungs are clear . Recommending to take Metolazone twice a week along with continuing lasix 40 mg daily. Test Results Pending at Discharge: Operative Procedures Performed: Other Procedures: Pertinent Test Results: XR CHEST 1 VIEW ?? HISTORY: lightheaded. ?? COMPARISON: Portable chest on 04/07/2018 ?? VIEWS: Erect AP portable chest at 0152 hours ?? FINDINGS: Heart size is normal. Pulmonary vascularity is normal . 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 No infiltrate, mass or pleural effusion is seen. Bony structures are unremarkable. desk monitor wires chest. ?? IMPRESSION: 1. No active disease. Discharge Details Physical Exam at Discharge: Discharge Condition: fair Pulse: 91 Resp: 20 BP: 157/68 Temp: 36.6 ??C (97.9 ??F) Weight: 87.8 kg (193 lb 9 oz) BP 157/68 (BP Location: Right arm, Patient Position: Lying) Pulse 91 Temp 36.6 ??C (97.9 ??F) (Tympanic) Resp 20 Ht 165.1 cm (5' 5 ) Wt 87.8 kg (193 lb 9 oz) SpO2 91% BMI 32.21 kg/m?? Pertinent Exam Findings at Discharge: Patient seen and examined General-Not in acute distress Head: Atraumatic, normocephalic Neck: Supple CV: S1, S2, RRR Respiratory: Clear to auscultation bilaterally GI: Abdomen soft, nontender, nondistended, bowel sounds positive Neuro: AAO times 3, no focal deficit MSK: Patient has chronic bilateral lower extremity weakness from familial spastic paraplegia. Bilateral lower extremity edema 2-3 +. No calf tenderness Psych: Normal mood and affect ?? Labs at discharge: Recent Results (from the past 24 hour(s)) POCT glucose Collection Time: 03/07/19 5:16 PM Result Value Ref Range Glucose, POC 174 (H) 71 - 98 mg/dL POCT glucose Collection Time: 03/07/19 8:32 PM Result Value Ref Range Glucose, POC 177 (H) 71 - 98 mg/dL POCT glucose Collection Time: 03/08/19 2:39 AM Result Value Ref Range Glucose, POC 128 (H) 71 - 98 mg/dL POCT glucose Collection Time: 03/08/19 7:53 AM Result Value Ref Range Glucose, POC 147 (H) 71 - 98 mg/dL TSH reflex to free T4 Collection Time: 03/08/19 8:02 AM Result Value Ref Range TSH 4.34 (H) 0.30 - 4.20 mcIUnit/mL T4, free Collection Time: 03/08/19 8:02 AM Result Value Ref Range Free T4 1.01 0.90 - 1.70 ng/dL Comprehensive metabolic panel Collection Time: 03/08/19 8:05 AM Result Value Ref Range Sodium 143 135 - 145 mmol/L Potassium, pl 3.8 3.3 - 4.9 mmol/L Chloride 108 97 - 110 mmol/L CO2 26 22 - 32 mmol/L Anion gap 9 2 - 15 mmol/L BUN 16 8 - 25 mg/dL Creatinine 0.61 0.60 - 1.10 mg/dL Glucose 143 70 - 199 mg/dL Calcium 9.2 8.5 - 10.3 mg/dL Bilirubin, total 0.2 0.1 - 1.2 mg/dL Protein, pl 6.2 (L) 6.5 - 8.5 g/dL Albumin 3.6 3.5 - 5.0 g/dL Alk phos 96 40 - 130 Units/L ALT 19 7 - 45 Units/L AST 20 10 - 45 Units/L eGFR Collection Time: 03/08/19 8:05 AM Result Value Ref Range GFR 86 mL/min/1.73 m2 POCT glucose Collection Time: 03/08/19 11:28 AM Result Value Ref Range Glucose, POC 176 (H) 71 - 98 mg/dL Discharge Disposition: Discharge to home or self care Full Code Discharge Instructions: Discharge Medications: Your medication list CHANGE how you take these medications amitriptyline 25 mg tablet Commonly known as: ELAVIL take 1 tablet (25MG) by ORAL route every 24 hours with meals What changed: how much to take CRESTOR 10 mg tablet Generic drug: rosuvastatin TAKE 1 TABLET BY MOUTH 1 TIME PER DAY AT BEDTIME What changed: Another medication with the same name was removed. Continue taking this medication, and follow the directions you see here. JANUVIA 100 mg tablet Generic drug: SITagliptin take 1 tablet by oral route every day What changed: Another medication with the same name was removed. Continue taking this medication, and follow the directions you see here. metOLazone 2.5 mg tablet Commonly known as: ZAROXOLYN Take 1 tablet (2.5 mg total) by mouth 2 (two) times a week What changed: when to take this NexIUM 40 mg capsule Generic drug: esomeprazole DR TAKE 1 CAPSULE DAILY What changed: Another medication with the same name was removed. Continue taking this medication, and follow the directions you see here. PLAVIX 75 mg tablet Generic drug: clopidogrel take 1 tablet by oral route every day What changed: Another medication with the same name was removed. Continue taking this medication, and follow the directions you see here. potassium chloride ER 10 mEq CR tablet Commonly known as: KLOR-CON Take 4 tablet/capsule (40 mEq total) by mouth daily What changed: when to take this SYSTANE ULTRA 0.4-0.3 % ophthalmic solution Generic drug: peg 400-propylene glycol PRN What changed: how much to take how to take this when to take this reasons to take this Another medication with the same name was removed. Continue taking this medication, and follow the directions you see here. vitamin B-12 1,000 mcg tablet Generic drug: cyanocobalamin take 1 tablet by oral route every day What changed: Another medication with the same name was removed. Continue taking this medication, and follow the directions you see here. XALATAN 0.005 % ophthalmic solution Generic drug: latanoprost instill 1 drop by Ophthalmic route every day into affected eye(s)in the evening What changed: Another medication with the same name was removed. Continue taking this medication, and follow the directions you see here. latanoprost 0.005 % ophthalmic solution Commonly known as: XALATAN instill 1 drop by ophthalmic route every day into affected eye(s) in the evening What changed: Another medication with the same name was removed. Continue taking this medication, and follow the directions you see here. CONTINUE taking these medications anastrozole 1 mg tablet Commonly known as: ARIMIDEX ASPIRIN LOW DOSE 81 mg enteric coated tablet Generic drug: aspirin take 1 tablet by oral route every day CALMOSEPTINE 0.44-20.6 % ointment Generic drug: menthol-zinc oxide PRN empagliflozin 10 mg tablet Commonly known as: JARDIANCE flecainide 50 mg tablet Commonly known as: TAMBOCOR take 1 tablet by oral route every 12 hours furosemide 40 mg tablet Commonly known as: LASIX Take 1 tablet (40 mg total) by mouth daily. levothyroxine 25 mcg tablet Commonly known as: SYNTHROID lubiprostone 24 mcg capsule Commonly known as: AMITIZA ONCE DAILY tablet Generic drug: multivitamin take 1 tablet by oral route every day with food PROAIR HFA 90 mcg/actuation inhaler Generic drug: albuterol HFA inhale 2 puff by inhalation route every 4 - 6 hours as needed psyllium (aspartame) SF 3.4 gram packet Commonly known as: METAMUCIL SF SYSTANE GEL 0.3 % gel Generic drug: artificial tears prn verapamil ER 240 mg 24 hr capsule Commonly known as: VERELAN take 1 capsule by oral route every day Outpatient Follow-Up: No future appointments. No follow-up provider specified. Time Spent on Discharge: 25 minutes documented in this encounter Discharge Instructions * Discharge Instr - Other Orders* Elva Sheppard RN - 03/08/2019 3:31 PM CDT If you have any questions or concerns please call us back at [phone]. We would be more than happy to help answer any questions you have. [facility] strives to provide excellent care. We hope that you feel you have received excellent care. documented in this encounter Medications at Time of Discharge anastrozole (ARIMIDEX) 1 mg tabletIndications: prevention of breast cancer in high risk women Take 1 tablet (1 mg total) by mouth daily albuterol HFA (PROAIR HFA) 90 mcg/actuation inhaler inhale 2 puff by inhalation route every 4 - 6 hours as needed 0 Inhaler 0 07/01/2016 1 amitriptyline (ELAVIL) 25 mg tablet take 1 tablet (25MG) by ORAL route every 24 hours with meals 0 01/10/2012 9 artificial tears (SYSTANE GEL) 0.3 % gel prn 0 0 07/01/2016 9 aspirin (ASPIRIN LOW DOSE) 81 mg tablet take 1 tablet by oral route every day 0 0 02/16/2016 1 clopidogrel (PLAVIX) 75 mg tablet take 1 tablet by oral route every day 0 0 07/01/2016 1 cyanocobalamin (vitamin B-12) 1,000 mcg tablet take 1 tablet by oral route every day 0 0 07/01/2016 1 empagliflozin (JARDIANCE) 10 mg tabletIndications: type 2 diabetes mellitus Take 10 mg by mouth daily [address] (NexIUM) 40 mg capsule TAKE 1 CAPSULE DAILY 90 1 01/29/2007 1 flecainide (TAMBOCOR) 50 mg tablet take 1 tablet by oral route every 12 hours 0 0 07/01/2016 9 furosemide (LASIX) 40 mg tabletIndications: Edema Take 1 tablet (40 mg total) by mouth daily. 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 9 menthol-zinc oxide (CALMOSEPTINE) 0.44-20.6 % ointment PRN [...] tablet/capsule (40 mEq total) by mouth daily 30 tablet 3 03/08/2019 9 psyllium, aspartame, SF (METAMUCIL SF) 3.4 gram packetIndications: constipation Take 1 packet by mouth 3 (three) [...] (KLOR-CON) 10 mEq CR tablet Take 4 tablet/capsu le (40 mEq total) by mouth daily 30 tablet 3 03/08/2019 03/22/2019 metOLazone (ZAROXOLYN) 2.5 mg tablet Take 1 tablet (2.5 mg total) by mouth 2 (two) times a week 30 tablet 1 03/08/2019 08/17/2019 documented in this encounter Discharge Disposition Disposition Code Departure Means Destination Discharge to home or self care documented in this encounter Progress Notes * Tonya Schwab, OT - 03/08/2019 10:06 AM CDT Occupational Therapy 03/08/19 0900 General Session Type Evaluation OT Received On 03/08/19 Family/Caregiver Present No Precautions Precautions Fall risk Home Living Type of Home House Home Layout One level Home Access Ramped entrance Bathroom Shower/Tub Tub/shower unit (spongebathes only due to claw foot tub) Bathroom Toilet Raised Bathroom Equipment Grab bars around toilet (has BSC-does not use) Bathroom Accessibility Accessible via walker Home Mobility Equipment Wheeled walker;4-Wheeled walker;Single point cane;Lift Chair Prior Function Level of [place] Independent with ADLs;Independent with ambulation;Independent functional transfers;Dependent with homemaking Lives With Spouse Receives Help From Spouse/Significant other;Family;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) Driving No Fall within the last 6 months Yes Fall within the last 6 months comment Pt notes frequent falls backward UE Dressing UE Dressing: Where assessed Supine, bed UE Dressing: Level of assistance Set up UE Dressing: Assistance with Thread RUE;Thread LUE;Pull around back (simulated) LE Dressing LE Dressing: Where assessed Supine, bed LE Dressing: Level of assistance Total LE Dressing: Assistance with Don/doff R sock;Don/doff L sock (Pt notes that she wears dresses in home for toileting ease) Toileting Toileting: Where assessed Other (Comment) Toileting: Equipment utilized Catherization Equipment (EOB) Toileting: Level of assistance Maximal Toileting: Assistance with Clothing management up;Clothing management down Pain Assessment Pain Assessment No/denies pain Pain Score 0 - No pain Activity Tolerance Endurance Tolerates less than 10 min activity no significant change in vital signs Activity Tolerance Comments Pt initially refused OOB, but was ablel to be encouraged. Vision-Basic Assessment Current Vision Wears glasses all the time (Pt c/o decreased vision due to macular degeneration) Cognition Overall Cognitive Status WFL Arousal/Alertness Appropriate responses to stimuli Attention Span Appears intact Current communication Appears Intact Orientation Oriented X4 (person, place, time, situation) Following Commands Follows multistep commands without difficulty Safety Judgment Good awareness of safety precautions Compliance/Behavior Other (comment) (required encouragement to participate) Sensation Numbness/Tingling Yes (In BLE; no c/o sensation loss UE.) Coordination Movements Are Fluid and Coordinated 1 Hand Function Coordination Functional Gross Grasp Functional Reach/Grasp RUE Reach WFL LUE Reach WFL Balance Balance Yes Static Sitting Balance Static Sitting-Balance Support Bilateral upper extremity supported;Feet supported Static Sitting-Sitting Surface Bed Static Sitting-Level of Assistance Independent Static Standing Balance Static Standing-Balance Support Bilateral upper extremity supported Static Standing-Standing Surface Floor Static Standing-Level of Assistance Contact guard Bed Mobility 1 Bed Mobility From 1 Supine Bed Mobility Type 1 To and from Bed Mobility to 1 Edge of bed Level of Assistance 1 Minimum assistance Transfer 1 Transfer From 1 Sit Transfer Type 1 To and from Transfer to 1 Stand Technique 1 Sit to stand;Stand to sit;Stand pivot Transfer Device 1 Wheeled walker Transfer Level of Assistance 1 Contact guard Trials/Comments 1 verbal cues for hand placement/safety RUE Assessment RUE Assessment WFL LUE Assessment LUE Assessment WFL Assessment Prognosis Good Problem List Decreased endurance;Decreased balance;Decreased ADL independence;Decreased IADL independence Plan Plan If this is the last note, consider this the discharge summary;Plan of care initiated Recommendation/Plan OT Recommendation Home with family (Pt could benefit from [facility], but denies need at this time) OT Frequency 3-5x/wk;Daily (M-F Sat PRN) Treatment/Interventions ADL/IADL retraining;Therapeutic exercise;Functional mobility training OT Evaluation Complete Yes * Thu Young, PREFITTER [employer]ORS - 03/08/2019 9:27 AM CDT 03/08/19 0839 PT Last Visit Session Type Treatment PT Received On 03/08/19 Subjective Agreeable to Therapy Subjective Comment Pt not wanting to get up. States she can't move her own legs, she was just givenlasics, she is hooked up to the tube from the wall, she doesn't want to leave the room. Agrees to start with some bed exercises and then consider ambulation in room. Family/Caregiver Present No Precautions Precautions Fall risk Pain Assessment Pain Assessment No/denies pain Pain Score 0 - No pain Cognition Overall Cognitive Status WFL Arousal/Alertness Appropriate responses to stimuli;Alert Attention Span Appears intact Orientation Oriented X4 (person, place, time, situation) Following Commands Follows one step commands without difficulty Compliance/Behavior Reluctant to participate Balance Balance Yes Dynamic Sitting Balance Dynamic Sitting-Balance Support Bilateral upper extremity supported;Feet supported Dynamic Sitting-Balance (while performing marches and LAQ) Dynamic Sitting-Sitting Surface Bed Dynamic Sitting-Level of Assistance Close supervision Static Standing Balance Static Standing-Balance Support Bilateral upper extremity supported Static Standing-Standing Surface Floor Static Standing-Level of Assistance Contact guard Exercises Heelslides x 15 B AAROM Glute Sets x 15 B Hip Flexion Seated EOB marching x 10 B Hip Abduction x 15 B AAROM Knee AROM Seated EOB LAQ x 5 B Ankle Pumps x 15 B Supine Supine-Exercises Bilateral;Lower extremity Reps/Sets x 15 B Supine-Motion AROM;AAROM Seated Seated-Exercises Lower extremity Reps/Sets 5-10 B Seated-Motion AROM Bed Mobility Bed Mobility Yes Bed Mobility 1 Bed Mobility From 1 Supine Bed Mobility Type 1 To and from Bed Mobility to 1 Edge of bed Level of Assistance 1 Minimum assistance Bed Mobility Comments 1 Reports dizziness upon sitting up, given VC's for pursed lip breathing and dizziness disappears quickly. Transfers Transfer Yes Transfer 1 Transfer From 1 Bed;Sit Transfer Type 1 To and from Transfer to 1 Stand Technique 1 Sit to stand;Stand to sit Transfer Device 1 Wheeled walker Transfer Level of Assistance 1 Contact guard Trials/Comments 1 VC's for LE positioning to bed and hand placement when sitting. VC's for hand placement when standing. Ambulation Ambulation Yes Ambulation 1 Distance (ft) 1 40' Surface 1 Level tile Device 1 Wheeled walker Assistance 1 Contact guard Gait: Requires verbal cues to 1 Use assistive device safely;Improve upright posture Quality of Gait 1 decreased step height and heel strike. Slow alvaro, flexed posture. Ambulation Comments 1 C/o back feeling achy following ambulation. Other Comments Other PT Comments Pt was greatly encouraged in OOB and pt eventually agreed to ambulation in room. Part of treatment was cotreat with OT. Plan Plan If this is the last note, consider this the discharge summary Recommendation/Plan PT Recommendation/Plan Home with family;Home with intermittent assist Thu Young PTA * Doreen Quintero MD - 03/07/2019 12:40 PM CDT [facility] Hospitalist Service Progress Note Patient Name: Perla Leon Patient : 1940 Age/Sex: 78 y.o. female Room/Bed: [id number] Admission Date/Time: 03/05/2019 11:20 PM Date: 03/07/2019 Time: 12:41 PM Originally Presented with Chief Complaint of lightheadedness and generalized weakness Subjective: Patient is lying in the bed. Patient is afebrile. Patient is hemodynamically stable. Patient is on room air saturating 91-98%. Patient denies any chest pain, shortness of breath, abdominal pain, nausea, vomiting, diarrhea, black stool, dark stool, fresh blood in stool. Patient still has bilateral lower extremity edema Patient had last bowel movement 3 days ago. Patient is passing gas. Abdominal exam benign Objective: Vitals: 24hr Min/Max: Temp Min: 36.1 ??C (96.9 ??F) Max: 36.9 ??C (98.5 ??F) Pulse Min: 56 Max: 88 BP Min: 113/54 Max: 162/78 Resp Min: 18 Max: 20 SpO2 Min: 91 % Max: 98 % Most Recent : Vitals: 03/07/19 1200 BP: Pulse: 59 Resp: Temp: SpO2: I/O last 2 completed shifts: In: 840 [P.O.:840] Out: 1800 [Urine:1800] I/O this shift: In: 360 [P.O.:360] Out: - Physical Exam: Patient seen and examined General-Not in acute distress Head: Atraumatic, normocephalic Neck: Supple CV: S1, S2, RRR Respiratory: Clear to auscultation bilaterally GI: Abdomen soft, nontender, nondistended, bowel sounds positive Neuro: AAO times 3, no focal deficit MSK: 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 Bilateral lower extremity edema 2-3 +. No calf tenderness Psych: Normal mood and affect Labs: Recent Results (from the past 24 hour(s)) POCT glucose Collection Time: 03/06/19 5:17 PM Result Value Ref Range Glucose, POC 143 (H) 71 - 98 mg/dL POCT glucose Collection Time: 03/06/19 9:22 PM Result Value Ref Range Glucose, POC 244 (H) 71 - 98 mg/dL POCT glucose Collection Time: 03/07/19 2:52 AM Result Value Ref Range Glucose, POC 229 (H) 71 - 98 mg/dL Basic metabolic panel Collection Time: 03/07/19 4:39 AM Result Value Ref Range Sodium 143 135 - 145 mmol/L Potassium, pl 3.9 3.3 - 4.9 mmol/L Chloride 107 97 - 110 mmol/L CO2 26 22 - 32 mmol/L Anion gap 10 2 - 15 mmol/L BUN 16 8 - 25 mg/dL Creatinine 0.70 0.60 - 1.10 mg/dL Glucose 179 70 - 199 mg/dL Calcium 9.1 8.5 - 10.3 mg/dL Pro B-type natriuretic peptide Collection Time: 03/07/19 4:39 AM Result Value Ref Range NT-proBNP 195 <=450 pg/mL eGFR Collection Time: 03/07/19 4:39 AM Result Value Ref Range GFR 82 mL/min/1.73 m2 POCT glucose Collection Time: 03/07/19 7:57 AM Result Value Ref Range Glucose, POC 141 (H) 71 - 98 mg/dL Pertinent Labs: I have reviewed the pertinent labs. Radiology: Xr Chest 1 Vw Portable Result Date: 03/06/2019 Narrative: XR CHEST 1 VIEW HISTORY: lightheaded. COMPARISON: Portable chest on 04/07/2018 VIEWS: Erect AP portable chest at 0152 hours FINDINGS: Heart size is normal. Pulmonary vascularity is normal . 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 No infiltrate, mass or pleural effusion is seen. Bony structures are unremarkable. desk monitor wires chest. Impression: 1. No active disease. [...] Reaction: colon problems, Current Medication List: Scheduled Meds:aspirin, 81 mg, oral, Daily clopidogrel, 75 mg, oral, Daily empagliflozin, 10 mg, oral, Daily enoxaparin, 40 mg, subcutaneous, Daily-2100 flecainide, 50 mg, oral, BID furosemide, 40 mg, intravenous, BID DIURETIC insulin lispro, 1-2 Units, subcutaneous, Nightly insulin lispro, 1-3 Units, subcutaneous, TID with meals levothyroxine, 25 mcg, oral, Daily - 0600 miconazole, , topical, BID potassium chloride ER, 40 mEq, oral, BID rosuvastatin, 10 mg, oral, Daily verapamil SR, 240 mg, oral, Daily Continuous Infusions:sodium chloride 0.9%, 50 mL/hr, Last Rate: 50 mL/hr (03/06/19 0551) PRN Meds:??? albuterol ??? dextrose OR dextrose ??? glucagon ??? lubricant ASSESSMENT 1. Generalized weakness and lightheadedness 2. Paroxysmal atrial fibrillation-currently patient is in sinus rhythm. Patient is maintained on Plavix, verapamil and flecainide 3. Chronic bilateral lower extremity lymphedema 4. Diabetes type 2 5. 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 Patient ambulates with walker at home. 6. Venous stasis dermatitis Plan Etiology for generalized weakness and lightheadedness is currently unclear as patient is currently in sinus rhythm. Currently patient denies any dizziness or lightheadedness Continue with telemetry monitoring. Cardiology is following. Cardiology is recommending IV diuresis for bilateral lower extremity edema but patient refused thismorning. Patient still has bilateral lower extremity edema 2-3 +. Patient is educated to be compliant with diuretic regimen. Patient voiced understanding. Patient states her bilateral lower extremityfeels heavy. No calf tenderness Cardiology is recommending to increase metolazone twice per week No evidence of bilateral lower extremity cellulitis noted on exam. Likely patient has venous stasisdermatitis Continue with rest of home medications. PT/OT is consulted. Anticipated discharge tomorrow if lower extremity edema is better MDM: Low complexity I. Doreen Quintero MD Internal Medicine - Hospitalist [facility] - Adult Hospitalist Service 03/07/2019 12:41 PM Voice recognition software [employer] was used dictate and transcribe this document. Global Climate Change Researcher variances may occur. Despite proofreading, typographical errors may occur. * Laz Valencia MD - 03/07/2019 11:18 AM CDT Cardiology Progress Note 03/07/19 Symptoms: Good urine output. Telemetry shows sinus rhythm. No atrial fibrillation. Abdomen slightly distended. No leg pain. Vital Signs: Patient Vital Signs for the past 24 hrs: BP Temp Temp src Pulse Resp SpO2 03/07/19 0900 -- -- -- 77 -- -- 03/07/19 0800 -- -- -- 76 -- -- 03/07/19 0727 144/59 36.8 ??C (98.3 ??F) Temporal 64 18 91 % 03/07/19 0248 140/57 36.1 ??C (96.9 ??F) Temporal 74 20 93 % 03/06/19 2339 140/51 36.4 ??C (97.5 ??F) Temporal 63 20 91 % 03/06/192121 117/49 -- -- 56 -- -- 03/06/192023 117/49 36.6 ??C (97.8 ??F) 56 20 98 % 03/06/19 1800 -- -- -- 81 -- -- 03/06/19 1600 -- -- -- 81 -- -- 03/06/19 1550 162/78 36.9 ??C (98.5 ??F) Temporal 81 -- 95 % 03/06/19 1400 -- -- -- 80 -- -- 03/06/19 1200 -- -- -- 84 -- -- 03/06/19 1149 150/77 36.4 ??C (97.6 ??F) 78 -- 94 % Intake/Output Summary (Last 24 hours) at 03/07/2019 1119 Last data filed at 03/07/2019 1047 Gross per 24 hour Intake 600 ml Output 1000 ml Net -400 ml Wt Readings from Last 3 Encounters: 03/06/19 87.8 kg (193 lb 9 oz) 09/29/18 90.7 kg (200 lb) 04/07/18 88 kg (194 lb) Physical Exam: Lungs: Clear to auscultation and percussion. Respirations unlabored Cardiac: PMI and JVP normal, S1 and S2 normal, no murmur, no gallop or rub Abd: Soft, nontender, Protuberant, no hepatosplenomegaly or masses, no abdominal bruit or enlarged aortic pulsation Extremities: No clubbing, cyanosis. Mild bilateral edema. Femoral pulses 2+. Current Medications: Current Facility-Administered Medications Medication Dose Route Frequency Provider Last Rate Last Dose ??? albuterol (PROVENTIL,VENTOLIN) 2.5 mg /3 mL (0.083 %) nebulizer solution 2.5 mg 2.5 mg nebulization Q6H PRN (RT) Maria Del Rosario Vences MD ??? aspirin enteric coated tablet 81 mg 81 mg oral Daily Roberto Ramos MD 81 mg at 03/07/19 0810 ??? clopidogrel (PLAVIX) tablet 75 mg 75 mg oral Daily Roberto Ramos MD 75 mg at 03/07/19 0809 ??? dextrose gel in packet 15 g 15 g oral Q15 Min PRN Christine Cardenas MD Or ??? dextrose (D10W) 10% bolus 250 mL 250 mL intravenous Q15 Min PRN Christine Cardenas MD ??? empagliflozin (JARDIANCE) tablet 10 mg 10 mg oral Daily Roberto Ramos MD 10 mg at 03/07/19 0810 ??? enoxaparin (LOVENOX) syringe 40 mg 40 mg subcutaneous Daily-2100 Christine Cardenas MD 40 mg at 03/06/192121 ??? flecainide (TAMBOCOR) tablet 50 mg 50 mg oral BID Roberto Ramos MD 50 mg at 03/07/19 0810 ??? furosemide (LASIX) 10 mg/mL injection 40 mg 40 mg intravenous BID DIURETIC Laz Valencia MD ??? glucagon injection 1 mg 1 mg intramuscular Q30 Min PRN Christine Cardenas MD ??? insulin lispro (HumaLOG) pen injection 1-2 Units 1-2 Units subcutaneous Nightly Christine Cardenas MD 1 Units at 03/06/192122 ??? insulin lispro (HumaLOG) pen injection 1-3 Units 1-3 Units subcutaneous TID with meals Christine Cardenas MD 2 Units at 03/06/19 1137 ??? levothyroxine (SYNTHROID) tablet 25 mcg 25 mcg oral Daily - 0600 Roberto Ramos MD 25 mcg at 03/07/19 0604 ??? miconazole 2 % powder topical BID Maria Del Rosario Vences MD ??? polyvinyl alcohol (LIQUIFILM TEARS) 1.4 % ophthalmic solution 1 drop 1 drop each eye TID PRN Maria Del Rosario Vences MD ??? potassium chloride ER (KLOR-CON) extended release tablet 40 mEq 40 mEq oral BID Roberto Ramos MD40 mEq at 03/07/19 0809 ??? rosuvastatin (CRESTOR) tablet 10 mg 10 mg oral Daily Roberto Ramos MD 10 mg at 03/07/19 0810 ??? sodium chloride 0.9% infusion 50 mL/hr intravenous Continuous Christine Cardenas MD 50 mL/hr at 03/06/19 0525 50 mL/hr at 03/06/19 0525 ??? verapamil SR (CALAN SR) extended release tablet 240 mg 240 mg oral Daily Maria Del Rosario Vences MD 240 mg at 03/07/19 0809 Labs: Recent Labs Lab Units 03/06/19 0654 03/05/19 2252 TROPONIN T ng/mL <0.01 <0.01 Recent Labs Lab Units 03/07/19 0757 03/07/19 0439 03/06/19 0654 03/05/19 2252 SODIUM mmol/L -- 143 -- 143 138 POTASSIUM PLASMA mmol/L -- 3.9 -- 3.4 3.2* CHLORIDE mmol/L -- 107 -- 103 98 CO2 mmol/L -- 26 -- 28 30 BUN SERUM mg/dL -- 16 -- 13 15 CREATININE mg/dL -- 0.70 -- 0.62 0.75 PDA-ADS-LMARTOU mL/min/1.73 m2 -- 82 -- 85 75 GLUCOSE mg/dL -- 179 -- 131 257* POC GLUCOSE MONITOR mg/dL 141* -- < > -- -- CALCIUM mg/dL -- 9.1 -- 10.7* 10.4* < > = values in this interval not displayed. No lab exists for component: LABALBU Recent Labs Lab Units 03/05/19 2252 WBC K/cumm 10.2* HEMOGLOBIN g/dL 12.7 HEMATOCRIT % 40.0 PLATELETS K/cumm 315 Lab Results Component Value Date TSH 5.91 (H) 12/12/2015 FREET4 0.79 12/12/2015 Lab Results Component Value Date CHOL 112 08/18/2015 TRIG 175 (H) 08/18/2015 HDL 27 (L) 08/18/2015 Lab Results Lab Value Date/Time TROPONINT <0.01 03/06/2019 0654 TROPONINT <0.01 03/05/2019 2252 TROPONINT <0.01 10/02/2017 0010 TROPONINT <0.01 10/01/2017 1428 TROPONINT <0.01 09/30/20172023 TROPONINT <0.01 02/12/2016 0337 TROPONINT <0.01 02/11/2016 2114 Telemetry: Cardiac Rhythm: Normal sinus rhythm (03/07/19 0900) Cardiology Testing: Troponin negative ?? EKG: On 03/05/2019 showed sinus rhythm, QRS interval 120 milliseconds, QT interval is normal ?? Echocardiogram: September 2017 Conclusions: Mild concentric left ventricular hypertrophy. Hyperdynamic [...] valve. Trivial regurgitation in the tricuspid valve. ?? Stress Test: In 2015 was normal ?? Cardiac Cath: In 2010 showed intermediate coronary artery disease with negative lesion assessment in the left anterior descending ?Pro BNP: 195 ?? Impression: 1. Nausea without vomiting, generalized weakness. Etiology unclear 2. History of paroxysmal atrial fibrillation. Currently in sinus rhythm. EKG as above. Patient maintained on Plavix, verapamil and flecainide 3. Chronic lower extremity edema with possible cellulitic changes on the right. LV function was normal by last echo ? Plan: 1. Use IV diuretics to help resolve leg edema during her inpatient stay. 2. Increase Zaroxolyn use to twice per week after discharge 3. Okay for discharge from my perspective CC: MD Doreen Matamoros MD * Yuriy Phelan RN - 03/06/2019 11:35 AM CDT 03/06/19 1040 Communications CABELLO letter given? Yes CABELLO letter given on: 03/06/19 CABELLO Letter Given at: 1050 * Yuriy Phelan RN - 03/06/2019 11:34 AM CDT 03/06/19 1050 Basic Mobility - 6 Click How much difficulty does the patient have: Turning over in bed 4 How much difficulty does the patient currently [...] a railing? 3 Total Score (range 6-24) 19 * Yuriy Phelan RN - 03/06/2019 11:33 AM CDT 03/06/19 1050 Information Information Obtained From Patient Referral Data Referral Source Self referral Referral Reason Discharge Planning Prior to Admission Primary Caregiver Family Support System Spouse/Significant Other;Family members Home Care Services No Durable Medical Equipment Walker (wheeled);Wheelchair Ramp Living Arrangements Spouse/significant other Type of Residence Private residence Steps in home? No steps inside or outside (has wheelchair ramp) Medication management ( reminds pt to take meds) Financial Resource Payor Source Medicare;[employer] Potential Discharge Needs Anticipated discharge level of care Private residence Pt/Family agrees with Anticipated Level of Care Unknown Comment family assists with heavy ADL's d/t MS type disease doesn't wish to explore help in the home at this time (family assists with heavy ADL's d/t MS type disease doesn't wish to explore help in the home at this time) Patient expects to be discharged to: Private residence Dialysis No Behavioral Health Services No * Karey Bashir, PT - 03/06/2019 9:33 AM CDT Physical Therapy 03/06/19 0850 General Chart Reviewed Yes Session Type Evaluation PT Received On 03/06/19 Subjective Agreeable to Therapy (states she does not walk much d/t leg weakness) Family/Caregiver Present No Precautions Precautions Fall risk Home Living Type of Home House Home Layout One level Home Access Ramped entrance Prior Function Level of [place] Needs assistance with ADLs;Needs assistance with ambulation;Needs assistance with homemaking Lives With Spouse Receives Help From Spouse/Significant other Pain Assessment Pain Assessment No/denies pain Cognition Arousal/Alertness Appropriate responses to stimuli Orientation Oriented X4 (person, place, time, situation) Following Commands Follows all commands and directions without difficulty Balance Balance Yes Static Sitting Balance Static Sitting-Balance Support Bilateral upper extremity supported Static Sitting-Sitting Surface Bed Static Sitting-Level of Assistance Independent Static Standing Balance Static Standing-Balance Support Bilateral upper extremity supported Static Standing-Standing Surface Floor Static Standing-Level of Assistance Contact guard Bed Mobility Bed Mobility Yes Bed Mobility 1 Bed Mobility From 1 Supine Bed Mobility Type 1 To Bed Mobility to 1 Edge of bed Level of Assistance 1 Moderate assistance (needs help moving legs d/t weakness) Transfers Transfer Yes Transfer 1 Transfer From 1 Bed Transfer Type 1 To and from Transfer to 1 Bed Technique 1 Sit to stand;Stand to sit Transfer Device 1 Wheeled walker Transfer Level of Assistance 1 Minimum assistance Ambulation Ambulation Yes Ambulation 1 Distance (ft) 1 2 Surface 1 Level tile Device 1 Wheeled walker Assistance 1 Contact guard;Standby assist Gait: Requires assist with 1 Maintaining balance Gait: Requires verbal cues to 1 Improve upright posture Quality of Gait 1 (poor, shuffles feet d/t leg weakness (per pt)) RLE Assessment RLE Assessment X (leg weakness throughout d/t muscular disease) LLE Assessment LLE Assessment X Other Comments Other PT Comments (pt only amb short distances, uses scooter mostly) Assessment Prognosis Fair Problem List Decreased strength;Decreased range of motion;Decreased endurance;Impaired balance;Decreased mobility Barriers to Discharge Current Mobility Status Plan Plan Plan of care initiated;If this is the last note, consider this the discharge summary Recommendation/Plan PT Recommendation/Plan Home with family PT Frequency 3-5x/wk Treatment/Interventions Bed mobility;Functional activity;Functional transfer training;Gait training PT Evaluation Complete Yes Karey Bashir PT documented in this encounter H&P Notes * Roberto Ramos MD - 03/06/2019 1:14 PM CDT History and Physical Date of Service: 03/06/2019 Primary Care Physician: Theresa Camargo MD [phone] SUBJECTIVE: Patient is a 78 y.o. female with a PMHx significant for familial spastic paraplegia and use a walker for ambulation, hypertension, sleep apnea, lymphatic edema, diabetes type 2, CAD, hyperparathyroidism, atrial fibrillation, history of breast cancer, IBS. Presents to the ED with a chief complaint of lightheadedness and generalized weakness. HPI: Patient states that last night prior to 10:00 p.m. She felt lightheaded, generally weak and is not too well and was concerned that she was in AFib with RVR so she decided to come into the emergency room. She states that this was similar to an episode she had about a year ago while she was in [place] and she wants to make sure that this time it was checked. It appears that she has had a couple of episode over the past year that are similar but patient was not diagnosed to be in AFib with RVR.Patient endorses having nausea but denies vomiting, fever, chills, diarrhea, constipation or chest pain Past Medical History: Diagnosis Date ??? Anemia [...] Medication Sig Dispense Refill Last Dose ??? empagliflozin (JARDIANCE) 10 mg tablet Take 10 mg by mouth daily ??? 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 potassium chloride ER (KLOR-CON) 10 mEq CR tablet Take 40 mEq by mouth 2 (two) times a day ??? albuterol HFA (PROAIR HFA) 90 mcg/actuation [...] time ??? clopidogrel (PLAVIX) 75 mg tablet TAKE ONE BY MOUTH ONE TIME PER DAY 90 5 03/05/2019 at Unknowntime ??? clopidogrel (PLAVIX) 75 mg tablet take 1 tablet by oral route every day 0 0 Unknown at Unknown time ??? cyanocobalamin (vitamin B-12) 1,000 mcg tablet take 1 tablet by oral route every day 0 0 03/05/2019 at Unknown time ??? cyanocobalamin, vitamin B-12, (VITAMIN B-12) 1,000 mcg tablet extended release 1 po daily 0 0 Unknown at Unknown time ??? esomeprazole DR (NexIUM) 40 mg capsule TAKE 1 CAPSULE DAILY 90 1 03/05/2019 at Unknown time ??? esomeprazole DR (NexIUM) 40 mg capsule take 1 Capsule by oral route every day 0 0 Unknown at Unknown time ??? flecainide (TAMBOCOR) 50 mg tablet take 1 tablet by oral route every 12 hours 0 0 03/05/2019 atUnknown time ??? furosemide (LASIX) 40 mg tablet Take 1 tablet (40 mg total) by mouth daily. ??? latanoprost (XALATAN) 0.005 % ophthalmic solution instill 1 drop by Ophthalmic route every day into affected eye(s)in the evening 0 03/05/2019 at Unknown time ??? latanoprost (XALATAN) 0.005 % ophthalmic solution instill 1 drop by ophthalmic route every day into affected eye(s) in the evening 0 0 03/05/2019 at Unknown time ??? latanoprost (XALATAN) 0.005 % ophthalmic solution instill 1 drop by ophthalmic route every day into affected eye(s) in the evening 0 0 03/05/2019 at Unknown time ??? lubiprostone (AMITIZA) 24 mcg capsule Take 24 mcg by mouth daily with breakfast. More than a month at Unknown time ??? menthol-zinc oxide (CALMOSEPTINE) [...] 0 0 Unknown at Unknown time ??? peg 400-propylene glycol (SYSTANE) 0.4-0.3 % ophthalmic solution Administer 1 drop into both eyes as needed. 03/05/2019 at Unknown time ??? psyllium, aspartame, SF (METAMUCIL SF) 3.4 gram packet Take 1 packet by mouth 3 (three) times aday. 1 tsp. TID Past Month at Unknown time ??? rosuvastatin (CRESTOR) 10 mg tablet TAKE 1 TABLET BY MOUTH 1 TIME PER DAY AT BEDTIME 90 5 03/05/2019 at Unknown time ??? rosuvastatin (CRESTOR) 10 mg tablet take 1 tablet by oral route every day 0 0 03/05/2019 at Unknown time ??? SITagliptin (JANUVIA) 100 mg tablet take 1 tablet by oral route every day 30 5 03/05/2019 at Unknown time ??? SITagliptin (JANUVIA) 100 mg tablet take 1 tablet by oral route every day 0 0 Unknown at Unknown time ??? verapamil ER (VERELAN) 240 mg 24 hr capsule take 1 capsule by oral route every day 0 0 03/05/2019 at Unknown time Allergies Allergen Reactions ??? [...] ??? Hypertension Brother Hypertension; Review of Systems: As documented in HPI otherwise unremarkable. OBJECTIVE: Vitals: Arrival Vitals Temp 03/05/19 2214 36 ??C (96.8 ??F) Pulse 03/05/19 2214 64 Resp 03/05/19 2214 23 BP 03/05/19 2214 132/62 SpO2 03/05/19 2214 93 % Temp src 03/05/19 2214 Temporal Heart Rate Source 03/05/19 2345 Monitor Patient Position 03/06/19 0600 Lying BP Location 03/06/19 0600 Right arm FiO2 (%) -- Most Recent : Vitals: 03/06/19 0600 03/06/19 0740 03/06/19 1149 03/06/19 1550 BP: 148/61 146/72 150/77 162/78 BP Location: Right arm Right arm Right arm Right arm Patient Position: Lying Sitting Lying;Sitting Lying;Sitting Pulse: 75 77 78 81 Resp: 16 Temp: 36.3 ??C (97.3 ??F) 36.6 ??C (97.9 ??F) 36.4 ??C (97.6 ??F) 36.9 ??C (98.5 ??F) TempSrc: Temporal Temporal Temporal Temporal SpO2: 94% 93% 94% 95% Weight: 87.8 kg (193 lb 9 oz) Height: 165.1 cm (5' 5 ) No intake/output data recorded. I/O this shift: In: 840 [P.O.:840] Out: 1100 [Urine:1100] Physical Exam: General- Alert and oriented x3. Pleasant and cooperative. No acute distress. Morbidly obese. HEENT- Nontraumatic. PERRLA. Sclera anicteric. Hearing normal to voice. External ears normal in appearance. Thyroid normal and no masses noted. Cardiovascular- Regular rate and rhythm. S1S2 positive. 3/6 systolic murmurLungs- Clear to auscultation bilaterally. Normal respiratory effort. No wheezing or crackles noted. Abdomen- Soft, non tender, non distended, bowel sounds present. No hepatomegaly. Ext- +1 pitting edema. Moving all ext. Strength 5/5 bilaterally on upper and lower Ext but does appear weak on bilateral lower extremities compared to upper extremities. Chronic venous stasis on bilateral lower extremities no cellulitis noted Neurological exam- Cranial nerves 2-12 intact. No focal neurological deficits noted. Lab/Radiology/Diagnostic Review: Recent Results (from the past 24 hour(s)) Basic metabolic panel Collection Time: 03/05/19 10:52 PM Result Value Ref Range Sodium 138 135 - 145 mmol/L Potassium, pl 3.2 (L) 3.3 - 4.9 mmol/L Chloride 98 97 - 110 mmol/L CO2 30 22 - 32 mmol/L Anion gap 10 2 - 15 mmol/L BUN 15 8 - 25 mg/dL Creatinine 0.75 0.60 - 1.10 mg/dL Glucose 257 (H) 70 - 199 mg/dL Calcium 10.4 (H) 8.5 - 10.3 mg/dL CBC with auto differential Collection Time: 03/05/19 10:52 PM Result Value Ref Range WBC 10.2 (H) 3.8 - 9.9 K/cumm Hgb 12.7 11.9 - 15.5 g/dL Hct 40.0 35.6 - 45.5 % Plt 315 150 - 400 K/cumm MPV 10.5 9.1 - 12.3 fL RBC 4.70 3.90 - 5.20 M/cumm MCV 85.1 81.3 - 96.4 fL MCH 27.0 (L) 27.1 - 33.3 pg MCHC 31.8 (L) 32.3 - 35.7 g/dL RDW CV 16.1 (H) 11.1 - 14.9 % RDW SD 49.6 (H) 35.7 - 48.1 fL NRBC abs 0.00 0.00 - 0.01 K/cumm Troponin T Collection Time: 03/05/19 10:52 PM Result Value Ref Range Troponin T <0.01 0.00 - 0.01 ng/mL Differential, auto Collection Time: 03/05/19 10:52 PM Result Value Ref Range Neutrophil abs 8.1 (H) 1.7 - 6.5 K/cumm Imm gran abs 0.0 0.0 - 0.1 K/cumm Lymphocyte abs 0.8 0.8 - 3.3 K/cumm Monocyte abs 1.0 (H) 0.2 - 0.8 K/cumm Eosinophil abs 0.1 0.0 - 0.5 K/cumm Basophil abs 0.0 0.0 - 0.1 K/cumm Neutrophil pct 79.8 % Imm gran pct 0.5 % Lymphocyte pct 8.3 % Monocyte pct 9.7 % Eosinophil pct 1.3 % Basophil pct 0.4 % eGFR Collection Time: 03/05/19 10:52 PM Result Value Ref Range GFR 75 mL/min/1.73 m2 Urinalysis reflex to microscopic and culture Urine Collection Time: 03/06/19 1:50 AM Result Value Ref Range Color, ur Yellow Yellow Clarity, ur Cloudy (A) Clear Specific gravity, ur 1.026 (H) 1.010 - 1.025 pH, urine 6.5 Protein, ur ql Negative Negative Glucose, ur ql 3+ (A) Negative Ketones, ur Negative Negative Bilirubin, ur Negative Negative Blood, ur Negative Negative Urobilinogen, ur 0.2 mg/dL Nitrite, ur Negative Negative Leukocyte esterase, ur Negative Negative Troponin T Collection Time: 03/06/19 6:54 AM Result Value Ref Range Troponin T <0.01 0.00 - 0.01 ng/mL Magnesium Collection Time: 03/06/19 6:54 AM Result Value Ref Range Magnesium 2.2 1.6 - 2.4 mg/dL Basic metabolic panel Collection Time: 03/06/19 6:54 AM Result Value Ref Range Sodium 143 135 - 145 mmol/L Potassium, pl 3.4 3.3 - 4.9 mmol/L Chloride 103 97 - 110 mmol/L CO2 28 22 - 32 mmol/L Anion gap 12 2 - 15 mmol/L BUN 13 8 - 25 mg/dL Creatinine 0.62 0.60 - 1.10 mg/dL Glucose 131 70 - 199 mg/dL Calcium 10.7 (H) 8.5 - 10.3 mg/dL eGFR Collection Time: 03/06/19 6:54 AM Result Value Ref Range GFR 85 mL/min/1.73 m2 POCT glucose Collection Time: 03/06/19 7:57 AM Result Value Ref Range Glucose, POC 133 (H) 71 - 98 mg/dL POCT glucose Collection Time: 03/06/19 11:35 AM Result Value Ref Range Glucose, POC 233 (H) 71 - 98 mg/dL Xr Chest 1 Vw Portable Result Date: 03/06/2019 Impression: 1. No active disease. Electronically signed by: Jeromy Poole Jr., M.D. ASSESSMENT/PLAN: #. Generalized weakness with lightheadedness #. Atrial fibrillation #. History of congestive heart failure with with lymphedema #. History of CAD status post CABG #. Diabetes type 2 #. Familial spastic paraplegia #. Hypokalemia #. Obesity #. Venous stasis Patient was admitted under observation but will be switched over to inpatient as she will stay herefor another midnight. The etiology for the generalized weakness and lightheadedness is currently unclear as patient currently is in sinus rhythm and does not appear to have been in AFib with RVR. Will continue to monitor on telemetry and Cardiology is following. Cardiology would like to diurese thepatient so they placed on IV diuretics the patient does not have an IV in place so she will be given p.o. Diuretics 80 mg. They would like to increase her metolazone to twice per week after discharge. I did attempt to replete electrolytes by mouth. Patient has a history of chronic venous stasis on bilateral lower extremities and it does not appear that she has cellulitis and family confirmed thatthis is her baseline erythema. Will resume home medications once verified. PT/OT consulted Continue with Lovenox for DVT prophylaxis Full Code ESTIMATED LENGTH OF STAY: About 2 midnights Voice recognition software [employer] was used dictate and transcribe this document. Global Climate Change Researcher variances may occur. Despite proofreading, typographical errors may occur. Roberto Ramos MD 03/06/2019 4:14 PM documented in this encounter Consult Notes * Laz Valencia MD - 03/06/2019 12:35 PM CDTAssociated Order(s): IP CONSULT TO CARDIOLOGY Cardiology Consultation note Admit date: 03/05/2019 Reason for Consultation: History of atrial fibrillation, leg edema History of Present Illness: Perla Leon is a 78 y.o. female with a PMhx of CAD (mild to moderate by cardiac catheterization in 2010) asthma, cardiac stress A-fib, DM, HLD, HTN, and CHF who presents to the ED for evaluation following sudden onset of nausea and generalized weakness starting about 2 hours ago. Pt is concerned she is in A-fib as this is how she previously has presented while in A-fib. Telemetry showed only sinus rhythm\ Her symptoms have since resolved however is still having mild light headedness. She denies CP, SOB,abdominal pain, vomiting, hematochezia, or melena. No headaches or unilateral weakness. Pt has urinary incontinence. She is taking Lasix as well as Zaroxolyn once a week. She denies recent dysuria orhematuria. Patient mobility is limited due to progressive demyelinating disease. She was diagnosed as familialspastic paraplegia. She also has history of GERD and irritable bowel syndrome. She had history of sleep apnea and uses CPAP She had weeping off her right leg after scratching it few days ago. Past Medical History: Diagnosis Date ??? Anemia [...] Other (See comments) Reaction: colon problems, Patient Vital Signs for the past 24 hrs: BP Temp Temp src Pulse Resp SpO2 Height Weight 03/06/19 1149 150/77 36.4 ??C (97.6 ??F) Temporal 78 -- 94 % -- -- 03/06/19 0740 146/72 36.6 ??C (97.9 ??F) Temporal 77 -- 93 % -- -- 03/06/19 0600 148/61 36.3 ??C (97.3 ??F) Temporal 75 16 94 % 165.1 cm (5' 5 ) 87.8 kg (193 lb 9 oz) 03/06/19 0315 155/83 -- -- 69 15 97 % -- -- 03/06/19 0030 141/64 -- -- 63 14 95 % -- -- 03/06/19 0015 133/59 -- -- 63 18 94 % -- -- 03/05/19 2345 134/63 -- -- 63 20 96 % -- -- 03/05/19 2214 132/62 36 ??C (96.8 ??F) Temporal 64 23 93 % 165.1 cm (5' 5 ) 89.4 kg (197 lb) Intake/Output Summary (Last 24 hours) at 03/06/2019 1235 Last data filed at 03/06/2019 0912 Gross per 24 hour Intake -- Output 800 ml Net -800 ml Wt Readings from Last 3 Encounters: 03/06/19 87.8 kg (193 lb 9 oz) 09/29/18 90.7 kg (200 lb) 04/07/18 88 kg (194 lb) Cardiac Rhythm: Normal sinus rhythm (03/06/19 0600) Physical Exam: General: Well developed, well nourished, [...] enlarged aortic pulsation Extremities: No clubbing, cyanosis. Moderate bilateral edema with some erythema specially on the right. Femoral pulses 2+. Neurologic: Oriented to person, place, and time. [...] production. Negative for shortness of breath. Gastrointestinal: Positive for but no vomiting, negative for abdominal pain and diarrhea. Musculoskeletal: Negative for [...] file Gets together: Not on file Attends episcop[employer] service: Not on file Active member of [...] file Social History Narrative Lives at home. Prior to Admission medications Medication Sig Start Date End Date Taking? 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 Historical Provider, artificial tears (SYSTANE GEL) 0.3 % gel prn 07/01/16 Elle Sadler MD aspirin (ASPIRIN LOW DOSE) 81 mg tablet take 1 tablet by oral route every day 02/16/16 Julian Payne MD clopidogrel (PLAVIX) 75 mg tablet TAKE ONE BY MOUTH ONE TIME PER DAY 01/29/07 Julian Payne MD clopidogrel (PLAVIX) 75 mg tablet take 1 tablet by oral route every day 07/01/16 Elle Sadler MD cyanocobalamin (vitamin B-12) 1,000 mcg tablet take 1 tablet by oral route every day 07/01/16 Elle Sadler MD cyanocobalamin, vitamin B-12, (VITAMIN B-12) 1,000 mcg tablet extended release 1 po daily 07/18/09 Julian Payne MD esomeprazole (NexIUM) 40 mg capsule TAKE 1 CAPSULE DAILY 01/29/07 Julian Payne MD esomeprazole DR (NexIUM) 40 mg capsule take 1 Capsule by oral route every day 07/01/16 Elle Sadler MD flecainide (TAMBOCOR) 50 mg tablet take 1 tablet by oral route every 12 hours 07/01/16 Elle Sadler MD furosemide (LASIX) 40 mg tablet Take 1 tablet (40 mg total) by mouth daily. 10/03/17 11/02/17 Ciara Lehman MD latanoprost (XALATAN) 0.005 % ophthalmic solution instill 1 drop by Ophthalmic route every day intoaffected eye(s)in the evening 07/18/09 Julian Payne MD latanoprost (XALATAN) 0.005 % ophthalmic solution instill 1 drop by ophthalmic route every day intoaffected eye(s) in the evening 02/16/16 Julian Payne MD latanoprost (XALATAN) 0.005 % ophthalmic solution instill 1 drop by ophthalmic route every day intoaffected eye(s) in the evening 07/01/16 Elle Sadler MD lubiprostone (AMITIZA) 24 mcg capsule Take 24 mcg by mouth daily with breakfast. Desiree Walker MD menthol-zinc oxide (CALMOSEPTINE) 0.44-20.6 % ointment PRN 07/01/16 Elle Sadler MD multivitamin (ONCE DAILY) tablet tablet take 1 tablet by oral route every day with food 07/01/16 Elle Sadler MD peg 400-propylene glycol (SYSTANE ULTRA) 0.4-0.3 % drops PRN Patient taking differently: Administer 2 drops into both eyes as needed (dry eyes). 07/01/16 Elle Sadler MD peg 400-propylene glycol (SYSTANE) 0.4-0.3 % ophthalmic solution Administer 1 drop into both eyes as needed. Historical Provider, psyllium, aspartame, SF (METAMUCIL SF) 3.4 gram packet Take 1 packet by mouth 3 (three) times a day. 1 tsp. TID Historical Provider, rosuvastatin (CRESTOR) 10 mg tablet TAKE 1 TABLET BY MOUTH 1 TIME PER DAY AT BEDTIME 03/07/09 Julian Payne MD rosuvastatin (CRESTOR) 10 mg tablet take 1 tablet by oral route every day 07/01/16 Elle Sadler MD SITagliptin (JANUVIA) 100 mg tablet take 1 tablet by oral route every day 03/10/15 Julian Payne MD SITagliptin (JANUVIA) 100 mg tablet take 1 tablet by oral route every day 07/01/16 Elle Sadler MD verapamil ER (VERELAN) 240 mg 24 hr capsule take 1 capsule by oral route every day 07/01/16 Elle Sadler MD amitriptyline (ELAVIL) 25 mg tablet take 1 Tablet by oral route every day at bedtime 07/01/16 03/06/19 Elle Sadler MD clotrimazole-betamethasone (LOTRISONE) cream apply by topical route 2 times every day for 2 weeks to the affected and surrounding areas of skin in the morning and evening 07/01/16 03/06/19 Elle Sadler MD empagliflozin (JARDIANCE) 10 mg tablet take 1 tablet by oral route every day in the morning 08/29/1609 Julian Payne MD empagliflozin (JARDIANCE) 10 mg tablet take 1 tablet by oral route every day in the morning 07/01/1709 Elle Sadler MD glimepiride (AMARYL) 1 mg tablet take 1.5 tablet by oral route with breakfast, 2 tablets with lunchand 2.5 tablets with dinner 08/05/14 03/06/19 Julian Payne MD glimepiride (AMARYL) 1 mg tablet take 1.5 tablets po at breakfast, 2 tab. po at lunch, 2.5 tab withdinner 07/01/16 03/06/19 Elle Sadler MD insulin detemir (LEVEMIR FLEXTOUCH) 100 unit/mL (3 mL) insulin pen inject 10 units QHS by subcutaneous route per prescriber's instructions. Insulin dosing requires individualization. Patient taking differently: 6 Units nightly. 03/10/15 03/06/19 Julian Payne MD metOLazone (ZAROXOLYN) 2.5 mg tablet Take 2.5 mg by mouth once a week. 03/06/19 Historical MD Denise Recent Labs Lab Units 03/06/19 0654 03/05/19 2252 TROPONIN T ng/mL <0.01 <0.01 Recent Labs Lab Units 03/06/19 1135 03/06/19 0654 03/05/19 2252 SODIUM mmol/L -- -- 143 138 POTASSIUM PLASMA mmol/L -- -- 3.4 3.2* CHLORIDE mmol/L -- -- 103 98 CO2 mmol/L -- -- 28 30 BUN SERUM mg/dL -- -- 13 15 CREATININE mg/dL -- -- 0.62 0.75 [id number] mL/min/1.73 m2 -- -- 85 75 GLUCOSE mg/dL -- -- 131 257* POC GLUCOSE MONITOR mg/dL 233* < > -- -- CALCIUM mg/dL -- -- 10.7* 10.4* < > = values in this interval not displayed. No lab exists for component: LABALBU Recent Labs Lab Units 03/05/19 2252 WBC K/cumm 10.2* HEMOGLOBIN g/dL 12.7 HEMATOCRIT % 40.0 PLATELETS K/cumm 315 Lab Results Component Value Date TSH 5.91 (H) 12/12/2015 FREET4 0.79 12/12/2015 Lab Results Component Value Date CHOL 112 08/18/2015 TRIG 175 (H) 08/18/2015 HDL 27 (L) 08/18/2015 Lab Results Lab Value Date/Time TROPONINT <0.01 03/06/2019 0654 TROPONINT <0.01 03/05/2019 2252 TROPONINT <0.01 10/02/2017 0010 TROPONINT <0.01 10/01/2017 1428 TROPONINT <0.01 09/30/20172023 TROPONINT <0.01 02/12/2016 0337 TROPONINT <0.01 02/11/2016 2114 Telemetry: Cardiac Rhythm: Normal sinus rhythm (03/06/19 0600) Radiology Testing: No results found. Cardiology Testing: Troponin negative EKG: On 03/05/2019 showed sinus rhythm, QRS interval 120 milliseconds, QT interval is normal Echocardiogram: September 2017 Conclusions: Mild concentric left ventricular hypertrophy. Hyperdynamic [...] valve. Trivial regurgitation in the tricuspid valve. Stress Test: In 2015 was normal Cardiac Cath: In 2010 showed intermediate coronary artery disease with negative lesion assessment in the left anterior descending Impression: 1. Nausea without vomiting, generalized weakness. Etiology unclear 2. History of paroxysmal atrial fibrillation. Currently in sinus rhythm. EKG as above. Patient maintained on Plavix, verapamil and flecainide 3. Chronic lower extremity edema with possible cellulitic changes on the right. LV function was normal by last echo Plan: 1. Use IV diuretics to help resolve leg edema during her inpatient stay. Follow BMP/BNP in the morning 2. Increase Zaroxolyn use to twice per week after discharge 3. Defer any need for GI workup to primary service Thank you for the consultation Laz Valencia MD CC: MD Roberto Matamoros MD documented in this encounter ED Notes * Christine Cardenas MD - 03/05/2019 11:36 PM CDTAssociated Order(s): ECG 12 lead HPI Chief Complaint Patient presents with ??? Irregular Heart Beat (provider at bedside: 12:16 AM 03/06/2019) Perla is a 78 year old female never smoker with a PMhx of CAD s/p CABG, asthma, A-fib, DM, HLD, HTN, and CHF who presents to the ED for evaluation following sudden onset of nausea and generalized weakness starting about 2 hours ago. Pt is concerned she is in A-fib as this is how she previously haspresented while in A-fib. She denies palpitations and states that she has never had palpitations with her A-fib previously. Her symptoms have since resolved however is still having mild light headedness. She denies CP, SOB, abdominal pain, vomiting, hematochezia, or melena. No headaches or unilateral weakness. Pt has urinary incontinence. Her recent colonoscopy was normal. She is taking Lasix andfollowed by urology for this. She denies recent dysuria or hematuria. 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 Breast cancer ([facility]) 10/01/2017 Priority: Medium ??? Generalized weakness 10/01/2017 Priority: Medium ? ? Nausea & vomiting 10/01/2017 Priority: Medium ??? DM (diabetes mellitus) ([facility]) 10/01/2017 Priority: Medium ??? PAF (paroxysmal atrial fibrillation) ([facility]) 10/01/2017 Priority: Low ??? Lymphedema of both lower extremities 10/01/2017 Priority: Low ??? CATY on CPAP 10/01/2017 Priority: Low ??? Chronic diastolic congestive heart failure ([facility]) 10/03/2017 ??? Pure hypercholesterolemia 08/30/2015 Class: Chronic ??? Asthma 02/17/2013 Class: Chronic ??? Hypokalemia 02/17/2013 Class: Chronic ??? Chronic ischemic heart disease 11/06/2011 Class: Chronic ??? Adiposity 11/06/2011 Class: Chronic ??? Atherosclerosis of coronary artery bypass graft 07/02/2011 Class: Chronic Past Medical History: Diagnosis Date ??? Anemia [...] Negative for chest pain and palpitations. Gastrointestinal: Positive for nausea. Negative for abdominal pain, anal bleeding, blood in stool, constipation, diarrhea and vomiting. Genitourinary: Negative for dysuria and hematuria. Musculoskeletal: Negative for arthralgias, back pain, myalgias and neck pain. Skin: Negative for rash and wound. Neurological: Positive for weakness (generalized. No unilateral weakness). Negative for dizziness, syncope, light-headedness, numbness and headaches. All other systems reviewed and are negative. Physical Exam ED Triage Vitals Temp Pulse Resp BP SpO2 03/05/19221303/05/19221303/05/19221303/05/19221303/05/192213 36 ??C (96.8 ??F) 64 23 132/62 93 % Temp src Heart Rate Source Patient Position BP Location FiO2 (%) 03/05/19221303/05/19 2345 -- -- -- Temporal Monitor Physical Exam Vitals signs and nursing note reviewed. Constitutional: General: She is not in acute distress. Appearance: She is well-developed. Comments: Elderly woman who is pale, awake, and alert. HENT: Head: Normocephalic and atraumatic. Nose: Nose normal. Mouth/Throat: Mouth: Mucous membranes are moist. Eyes: Extraocular Movements: Extraocular movements intact. Conjunctiva/sclera: Conjunctivae normal. Neck: Musculoskeletal: Normal range of motion and neck supple. Comments: No JVD Cardiovascular: Rate and Rhythm: Normal rate and regular rhythm. Heart sounds: Normal heart sounds. No murmur. No friction rub. No gallop. Pulmonary: Effort: Pulmonary effort is normal. No respiratory distress. Breath sounds: Normal breath sounds. No wheezing or rales. Abdominal: General: There is no distension. Palpations: Abdomen is soft. Tenderness: There is no tenderness. Comments: Weakness of the abdominal musculature noted Musculoskeletal: Normal range of motion. General: No tenderness. Comments: Chronic venous status changes with mild edema noted to bilateral lower extremities. No obvious cellulitis. Small abrasion noted on the anterior aspect of the right paula. Sensation grossly intact of the upper and lower extremities. No drift of the upper extremities Pt is able to lift either leg against gravity which pt and report is baseline for her. Skin: General: Skin is warm and dry. Capillary Refill: Capillary refill takes less than 2 seconds. Neurological: Mental Status: She is alert and oriented to person, place, and time. GCS: GCS eye subscore is 4. GCS verbal subscore is 5. GCS motor subscore is 6. Psychiatric: Behavior: Behavior normal. MDM MDM Number of Diagnoses or Management Options Amount and/or Complexity of Data Reviewed Clinical lab tests: reviewed and ordered Independent visualization of images, tracings, or specimens: yes Patient Progress Patient progress: stable Labs Reviewed URINALYSIS AND REFLEX TO MICROSCOPIC AND CULTURE - Abnormal Result Value Color, ur Yellow Clarity, ur Cloudy (*) Specific gravity, ur 1.026 (*) pH, urine 6.5 Protein, ur ql Negative Glucose, ur ql 3+ (*) Ketones, ur Negative Bilirubin, ur Negative Blood, ur Negative Urobilinogen, ur 0.2 Nitrite, ur Negative Leukocyte esterase, ur Negative Narrative: Urine pH is affected by diet, medications, systemic acid-base disturbances, and renal tubular function. pH may affect urinary stone formation. For example, urine pH below 6.0 may help reduce the tendency for calcium phosphate stones and pH greater than 6.0 may reduce the tendency for uric acid stone formation. Source: [place] [employer].Last revised 05-29-2017 BASIC METABOLIC PANEL - Abnormal Sodium 138 Potassium, pl 3.2 (*) Chloride 98 CO2 30 Anion gap 10 BUN 15 Creatinine 0.75 Glucose 257 (*) Calcium 10.4 (*) CBC WITH AUTO DIFFERENTIAL - Abnormal WBC 10.2 (*) Hgb 12.7 Hct 40.0 Plt 315 MPV 10.5 RBC 4.70 MCV 85.1 MCH 27.0 (*) MCHC 31.8 (*) RDW CV 16.1 (*) RDW SD 49.6 (*) NRBC abs 0.00 DIFFERENTIAL AUTO - Abnormal Neutrophil abs 8.1 (*) Imm gran abs 0.0 Lymphocyte abs 0.8 Monocyte abs 1.0 (*) Eosinophil abs 0.1 Basophil abs 0.0 Neutrophil pct 79.8 Imm gran pct 0.5 Lymphocyte pct 8.3 Monocyte pct 9.7 Eosinophil pct 1.3 Basophil pct 0.4 TROPONIN T Troponin T <0.01 EGFR GFR 75 TROPONIN T POCT GLUCOSE DEVICE POCT GLUCOSE DEVICE POCT GLUCOSE DEVICE POCT GLUCOSE DEVICE XR Chest 1 Vw Portable ED Interpretation Nothing acute BP 155/83 Pulse 69 Temp 36 ??C (96.8 ??F) (Temporal) Resp 15 Ht 165.1 cm (5' 5 ) Wt 89.4 kg (197 lb) SpO2 97% BMI 32.78 kg/m?? ECG 12 lead Date/Time: 03/05/2019 11:37 PM Performed by: Christine Cardenas MD Authorized by: Kelly Garcia MD Rate: ECG rate: 62 ECG rate assessment: normal Rhythm: Rhythm: sinus rhythm Comments: No acute ST or T wave changes ED Course as of Mar 06 631 Time: 03/06 252 Comment: Discussed pt's case with Dr. Vences, [facility] hospitalist, who agrees to accept pt for admission. By: Lynsey Stanford Clinical impression: Weakness generalized Disposition: Admit to [facility] Condition: Stable Attestations: Lynsey Stanford scribing for and in the presence of Dr. Christine Cardenas MD. I electronically signed this document at 6:31 AM on 03/06/19 I, Dr. Christine Cardenas MD, have personally performed the services described in the documentation ,reviewed the documentation, as recorded by the scribe in my presence, and it accurately and completely records my words and actions. Christine Cardenas MD 03/06/19630 * Yarelis Terrell RN - 03/05/2019 10:15 PM CDT Patient to ED c/o possible Afib, reports a history of Afib and states [employer] she started having generalized weakness, nausea, states she feels how she felt when she had Afib in the past. Patient denies chest pain, shortness of breath. NAD at this time. documented in this encounter Miscellaneous Notes * Plan of Care - Brooke Galvan RN - 03/08/2019 4:10 PM CDT Goals: Clinical Goals for the Shift: VSS. Safety. Summary: Patient is alert and oriented. Patient was given written and verbal discharge instructions. Patientand had questions regarding discharge which were answered by RN. Discharge paperwork is signed and in medical record. Problem: Lack of Knowledge: Goal: Ability to state ways to decrease the risk of falls will improve Outcome: Adequate for Discharge Problem: Safety: Goal: Will remain free from falls Outcome: Adequate for Discharge Goal: Will remain free from injury from falls Outcome: Adequate for Discharge Goal: Will remain free from falls and injury in home environment Outcome: Adequate for Discharge Problem: Activity: Goal: Ability to avoid complications of mobility impairment will improve Outcome: Adequate for Discharge Problem: Skin Integrity: Goal: Signs of wound healing will improve Outcome: Adequate for Discharge Goal: Skin integrity will improve Outcome: Adequate for Discharge Goal: Will show no evidence of further tissue damage Outcome: Adequate for Discharge Problem: Health Behavior: Goal: Understanding of discharge needs will improve Outcome: Adequate for Discharge Problem: Activity: Goal: Risk for activity intolerance will decrease Outcome: Adequate for Discharge Problem: Lack of Knowledge: Goal: Knowledge of diagnostic tests will improve Outcome: Adequate for Discharge Goal: Knowledge of disease or condition will improve Outcome: Adequate for Discharge Goal: Knowledge of safety precautions will improve Outcome: Adequate for Discharge Goal: Knowledge of the prescribed therapeutic regimen will improve Outcome: Adequate for Discharge Problem: Health Behavior: Goal: Ability to state signs and symptoms to report to health care provider will improve Outcome: Adequate for Discharge Problem: Physical Regulation: Goal: Ability to maintain clinical measurements within normal limits will improve Outcome: Adequate for Discharge Problem: Infection Risk: Goal: Will remain free from infection Outcome: Adequate for Discharge Problem: Safety: Goal: Ability to remain free from injury will improve Outcome: Adequate for Discharge Goal: Will remain free from falls Outcome: Adequate for Discharge Problem: Self-Care: Goal: Ability to participate in self-care as condition permits will improve Outcome: Adequate for Discharge Problem: Sensory: Goal: Pain level will decrease Outcome: Adequate for Discharge Goal: Ability to develop a pain control plan will improve Outcome: Adequate for Discharge Problem: Skin Integrity: Goal: Risk for impaired skin integrity will decrease Outcome: Adequate for Discharge Problem: Tissue Perfusion: Goal: Risk factors for ineffective tissue perfusion will decrease Outcome: Adequate for Discharge Problem: Lack of Knowledge: Goal: Complications related to the disease process, condition or treatment will be avoided or minimized Outcome: Adequate for Discharge * Plan of Care - Cammy Gonzales MSW - 03/08/2019 2:24 PM CDT SS consulted for dc planning. Met with pt and she denied any needs and no barriers noted. She liveswith her who she says is healthy and capable of assisting her at home. She also has 3 daughters who take care of everything , including laundry, cleaning, and meals. PT has evaluated and recommended return home with assist. No SS needs identified at this time. * Plan of Care - Tonya Schwab OT - 03/08/2019 10:02 AM CDT Problem: Toileting Goal: LTG - Patient will complete toileting tasks Description With mod I. Outcome: Progressing Problem: Transfers Goal: STG - Patient will perform toilet transfer Description With mod I. Outcome: Progressing * Plan of Care - Thu Young PTA - 03/08/2019 9:29 AM CDT Problem: PT Misc Goal: LTG - Misc 1 Description Pt to be min A/CGA for bed mobility Outcome: Progressing Goal: LTG - Misc 2 Description Pt to be CGA for transfers using WW Outcome: Progressing Goal: LTG - Misc 3 Description Pt to amb 10' w/WW, SBA/CGA for balance. Outcome: Progressing Recommend - Home with family, Home with intermittent assist. * Plan of Care - Ludy Velasco RN - 03/08/2019 5:16 AM CDT Goals: Clinical Goals for the Shift: Patient's strength will improve, no nausea, stable vitals, free from injury Summary: No complaints of nausea this shift, vitals stable Problem: Lack of Knowledge: Goal: Ability to state ways to decrease the risk of falls will improve Outcome: Progressing Problem: Safety: Goal: Will remain free from falls Outcome: Progressing Goal: Will remain free from injury from falls Outcome: Progressing Goal: Will remain free from falls and injury in home environment Outcome: Progressing Problem: Activity: Goal: Ability to avoid complications of mobility impairment will improve Outcome: Progressing Problem: Skin Integrity: Goal: Signs of wound healing will improve Outcome: Progressing Goal: Skin integrity will improve Outcome: Progressing Goal: Will show no evidence of further tissue damage Outcome: Progressing Problem: Health Behavior: Goal: Understanding of discharge needs will improve Outcome: Progressing Problem: Activity: Goal: Risk for activity intolerance will decrease Outcome: Progressing Problem: Lack of Knowledge: Goal: Knowledge of diagnostic tests will improve Outcome: Progressing Goal: Knowledge of disease or condition will improve Outcome: Progressing Goal: Knowledge of safety precautions will improve Outcome: Progressing Goal: Knowledge of the prescribed therapeutic regimen will improve Outcome: Progressing Problem: Health Behavior: Goal: Ability to state signs and symptoms to report to health care provider will improve Outcome: Progressing Problem: Physical Regulation: Goal: Ability to maintain clinical measurements within normal limits will improve Outcome: Progressing Problem: Infection Risk: Goal: Will remain free from infection Outcome: Progressing Problem: Safety: Goal: Ability to remain free from injury will improve Outcome: Progressing Goal: Will remain free from falls Outcome: Progressing Problem: Self-Care: Goal: Ability to participate in self-care as condition permits will improve Outcome: Progressing Problem: Sensory: Goal: Pain level will decrease Outcome: Progressing Goal: Ability to develop a pain control plan will improve Outcome: Progressing Problem: Skin Integrity: Goal: Risk for impaired skin integrity will decrease Outcome: Progressing Problem: Tissue Perfusion: Goal: Risk factors for ineffective tissue perfusion will decrease Outcome: Progressing Problem: Lack of Knowledge: Goal: Complications related to the disease process, condition or treatment will be avoided or minimized Outcome: Progressing * Plan of Billy - Sanjuana Jackson RN - 03/07/2019 7:27 AM CDT Problem: Lack of Knowledge: Goal: Ability to state ways to decrease the risk of falls will improve Outcome: Progressing Problem: Safety: Goal: Will remain free from falls Outcome: Progressing Goal: Will remain free from injury from falls Outcome: Progressing Goal: Will remain free from falls and injury in home environment Outcome: Progressing Problem: Activity: Goal: Ability to avoid complications of mobility impairment will improve Outcome: Progressing Problem: Skin Integrity: Goal: Signs of wound healing will improve Outcome: Progressing Goal: Skin integrity will improve Outcome: Progressing Goal: Will show no evidence of further tissue damage Outcome: Progressing Problem: Health Behavior: Goal: Understanding of discharge needs will improve Outcome: Progressing Problem: Activity: Goal: Risk for activity intolerance will decrease Outcome: Progressing Problem: Activity: Goal: Risk for activity intolerance will decrease Outcome: Progressing Problem: Lack of Knowledge: Goal: Knowledge of diagnostic tests will improve Outcome: Progressing Goal: Knowledge of disease or condition will improve Outcome: Progressing Goal: Knowledge of safety precautions will improve Outcome: Progressing Goal: Knowledge of the prescribed therapeutic regimen will improve Outcome: Progressing Problem: Health Behavior: Goal: Ability to state signs and symptoms to report to health care provider will improve Outcome: Progressing Goals: Clinical Goals for the Shift: free from injury, adequate rest, adequate pain control, vitals, labs,blood sugar within normal limits Summary: Pt refused IV fluids. Scheduled medications given as ordered. Pt placed on Purewick duringnight shift, voiding frequently. Telemetry showing NSR during night. Blood sugar have been high, but noncritical. Bed alarm in place. * Plan of Care - Alexandre Peace RN - 03/06/2019 3:13 PM CDT Goals: Clinical Goals for the Shift: VSS, free of falls or injury Summary:Patients VSS, free of falls and resting comfortably on room air. Patient had no complaints this shift. Problem: Lack of Knowledge: Goal: Ability to state ways to decrease the risk of falls will improve Outcome: Progressing Problem: Safety: Goal: Will remain free from falls Outcome: Progressing Goal: Will remain free from injury from falls Outcome: Progressing Goal: Will remain free from falls and injury in home environment Outcome: Progressing Problem: Activity: Goal: Ability to avoid complications of mobility impairment will improve Outcome: Progressing Problem: Skin Integrity: Goal: Signs of wound healing will improve Outcome: Progressing Goal: Skin integrity will improve Outcome: Progressing Goal: Will show no evidence of further tissue damage Outcome: Progressing Problem: Health Behavior: Goal: Understanding of discharge needs will improve Outcome: Progressing * Plan of Care - Brandi Roca RN - 03/06/2019 6:52 AM CDT Problem: Safety: Goal: Will remain free from falls 03/06/2019 0651 by Brandi Roca RN Outcome: Progressing 03/06/2019 0650 by Brandi Roca RN Outcome: Progressing Goal: Will remain free from injury from falls 03/06/2019 0651 by Brandi Roca RN Outcome: Progressing 03/06/2019 0650 by Brandi Roca RN Outcome: Progressing Goal: Will remain free from falls and injury in home environment 03/06/2019 0651 by Brandi Roca RN Outcome: Progressing 03/06/2019 0650 by Brandi Roca RN Outcome: Progressing Problem: Skin Integrity: Goal: Signs of wound healing will improve Outcome: Not Progressing Goal: Skin integrity will improve Outcome: Not Progressing Goal: Will show no evidence of further tissue damage Outcome: Not Progressing Goals: Clinical Goals for the Shift: hemodynamically stable. vss. no falls or injuries. Summary:Pt in bed resting. No c/o pain or nausea. No anxiety noted. Vss. Ivf's infusing. Telemetry cont. Will cont. With plan of care. documented in this encounter Plan of Treatment Not on file documented as of this encounter Procedures Procedure Name Priority Date/Time Associated Diagnosis Comments POCT GLUCOSE DEVICE Routine 03/08/2019 1 1:28 AM CDT EGFR Routine 03/08/2019 8:05 AM CDT COMPREHENSIVE METABOLIC PANEL Routine 03/08/2019 8:05 AM CDT THYROID FUNCTION CASCADE Add-On 03/08/2019 8:02 AM CDT T4, FREE Add On 03/08/2019 8:02 AM CDT POCT GLUCOSE DEVICE Routine 03/08/2019 7 :53 AM CDT POCT GLUCOSE DEVICE Routine 03/08/2019 2 :39 AM CDT POCT GLUCOSE DEVICE Routine 03/07/2019 8 :32 PM CDT POCT GLUCOSE DEVICE Routine 03/07/2019 5 :16 PM CDT POCT GLUCOSE DEVICE Routine 03/07/2019 1 2:45 PM CDT POCT GLUCOSE DEVICE Routine 03/07/2019 7 :57 AM CDT EGFR Routine 03/07/2019 4:39 AM CDT PRO B-TYPE NATRIURETIC PEPTIDE Routine 03/07/2019 4:39 AM CDT BASIC METABOLIC PANEL Routine 03/07/2019 4:39 AM CDT POCT GLUCOSE DEVICE Routine 03/07/2019 2 :52 AM CDT POCT GLUCOSE DEVICE Routine 03/06/2019 9 :22 PM CDT POCT GLUCOSE DEVICE Routine 03/06/2019 5 :17 PM CDT POCT GLUCOSE DEVICE Routine 03/06/2019 1 1:35 AM CDT POCT GLUCOSE DEVICE Routine 03/06/2019 7 :57 AM CDT EGFR STAT 03/06/2019 6:54 AM CDT TROPONIN T Timed 03/06/2019 6:54 AM CDT MAGNESIUM Add-On 03/06/2019 6:54 AM CDT BASIC METABOLIC PANEL STAT 03/06/2019 6:54 AM CDT XR CHEST 1 VIEW ED 03/06/2019 2:08 AM CDT URINALYSIS AND REFLEX TO MICROSCOPIC AND CULTURE Routine 03/06/2019 1:50 AM CDT EGFR STAT 03/05/2019 10:52 PM CDT DIFFERENTIAL AUTO STAT 03/05/2019 10: 52 PM CDT CBC WITH AUTO DIFFERENTIAL STAT 03/05/2019 10:52 PM CDT TROPONIN T STAT 03/05/2019 10:52 PM CDT BASIC METABOLIC PANEL STAT 03/05/2019 10:52 PM CDT ECG 12-LEAD STAT 03/05/2019 10:09 PM CDT documented in this encounter Results * (ABNORMAL) POCT glucose (03/08/2019 11:28 AM CDT) Glucose, POC 176(H) 71 - 98 mg/dL [facility] ([place]) Blood specimen (specimen) 03/08/2019 11:28 AM CDT 03/08/2019 11:28 AM CDT Junior Man MD LAB POCT ORDERABLES - DEVICE Fin al Result [facility] ([place]) [address] [place] [id number] * eGFR (03/08/2019 8:05 AM CDT) eGFR 86 mL/min/1.7 3 m2 [facility] ([place]) Comment: Interpretive Data Reference Interval Normal ?>/= 90 mL/min/1.73m2 Mildly decreased* ? 60 - 89 mL/min/1.73m2 Mildly to moderately decreased ?45 - 59 mL/min/1.73m2 Moderately to severely decreased ??30 - 44 mL/min/1.73m2 Severely decreased ?15 - 29 mL/min/1.73m2 Kidney Failure ?< 15 ??mL/min/1.73m2 *Relative to young adult level If -Greek multiply value by 1.16. Estimated glomerular filtration [...] was last reviewed 2015. Blood specimen (specimen) 03/08/2019 8:05 AM CDT 03/08/2019 8:08 AM CDT us Maria Del Rosario Vences MD LAB BLOOD ORDERABLES Final Resul t [facility] ([place]) [address] [place] [id number] * (ABNORMAL) Comprehensive metabolic panel (03/08/2019 8:05 AM CDT) Sodium 143 135 - 145 mmol/L [facility] ([place]) Potassium, pl 3.8 3.3 - 4.9 mmol/L [facility] ([place]) Chloride 108 97 - 110 mmol/L [facility]) CO2 26 22 - 32 mmol/L [facility]) Anion gap 9 2 - 15 mmol/L [facility] ([place]) BUN 16 8 - 25 mg/dL [facility] ([place]) Creatinine 0.61 0.60 - 1.10 mg/dL [facility]) Glucose 143 70 - 199 mg/dL [facility] ([place]) Comment: Interpretive Data Fasting [...] - 8.5 g/dL [facility] ([place]) Albumin 3.6 3.5 - 5.0 g/dL [facility] ([place]) Alk phos 96 40 - 130 Units/L [facility] ([place]) ALT 19 7 - 45 Units/L [facility] ([place]) AST 20 10 - 45 Units/L [facility] ([place]) Blood specimen (specimen) 03/08/2019 8:05 AM CDT 03/08/2019 8:08 AM CDT us Maria Del Rosario Vences MD LAB BLOOD ORDERABLES Final Resul t Performing Organization Address City/[facility] Co de Phone Number [facility] ([place]) [address] [place] [address] * T4, free (03/08/2019 8:02 AM CDT) Free T4 1.01 0.90 - 1.70 ng/dL [facility] ([place]) Blood specimen (specimen) 03/08/2019 8:02 AM CDT 03/08/2019 12:27 PM CDT Narrative [facility] ([place]) - 03/08/2019 2:19 PM CDT This test was reflexed from a TSH result. us Junior Man MD LAB BLOOD ORDERABLES Final Resul t Performing Organization Address City/[facility]/ZIP Co de Phone Number [facility] ([place]) [address] [place] [address] * (ABNORMAL) TSH reflex to free T4 (03/08/2019 8:02 AM CDT) TSH 4.34(H) 0.30 - 4.20 mcIUnit/mL [facility] ([place]) Blood specimen (specimen) 03/08/2019 8:02 AM CDT 03/08/2019 12:27 PM CDT Junior Man MD LAB BLOOD ORDERABLES Edited Resu lt - Final Performing Organization Address City/[facility]/ZIP Co de Phone Number [facility] ([place]) [address] [place] [address] * (ABNORMAL) POCT glucose (03/08/2019 7:53 AM CDT) Glucose, POC 147(H) 71 - 98 mg/dL [facility] ([place]) Blood specimen (specimen) 03/08/2019 7:53 AM CDT 03/08/2019 7:53 AM CDT Junior Man MD LAB POCT ORDERABLES - DEVICE Fin al Result Performing Organization Address [facility] Co de Phone Number [facility] ([place]) [address] [place] [address] * (ABNORMAL) POCT glucose (03/08/2019 2:39 AM CDT) Glucose, POC 128(H) 71 - 98 mg/dL [facility] ([place]) Blood specimen (specimen) 03/08/2019 2:39 AM CDT 03/08/2019 2:39 AM CDT us Doreen Quintero MD LAB POCT ORDERABLES - DE VICE Final Result Performing Organization Address [facility]/ZIP Co de Phone Number [facility] ([place]) [address] [place] [address] * (ABNORMAL) POCT glucose (03/07/2019 8:32 PM CDT) Glucose, POC 177(H) 71 - 98 mg/dL [facility] Blood specimen (specimen) 03/07/2019 8:32 PM CDT 03/07/2019 8:32 PM CDT us Doreen Quintero MD LAB POCT ORDERABLES - DE VICE Final Result Performing Organization Address [facility]/ZIP Co de Phone Number [facility] ([place]) [address] [place] [phone] * (ABNORMAL) POCT glucose (03/07/2019 5:16 PM CDT) Glucose, POC 174(H) 71 - 98 mg/dL [facility] ([place]) Blood specimen (specimen) 03/07/2019 5:16 PM CDT 03/07/2019 5:16 PM CDT us Doreen Quintero MD LAB POCT ORDERABLES - DE VICE Final Result Performing Organization Address [facility] Co de Phone Number [facility] ([place]) [address] [place] [phone] * (ABNORMAL) POCT glucose (03/07/2019 12:45 PM CDT) Glucose, POC 172(H) 71 - 98 mg/dL [facility] ([place]) Blood specimen (specimen) 03/07/2019 12:45 PM CDT 03/07/2019 12:45 PM CDT us Doreen Quintero MD LAB POCT ORDERABLES - DE VICE Final Result Performing Organization Address City/[facility] Co de Phone Number [facility] ([place]) [address] [place] [phone] * (ABNORMAL) POCT glucose (03/07/2019 7:57 AM CDT) Glucose, POC 141(H) 71 - 98 mg/dL [facility] ([place]) Blood specimen (specimen) 03/07/2019 7:57 AM CDT 03/07/2019 7:57 AM CDT us Doreen Quintero MD LAB POCT ORDERABLES - DE VICE Final Result [facility] ([place]) [address] [place] [address] * eGFR (03/07/2019 4:39 AM CDT) eGFR 82 mL/min/1.7 3 m2 [facility] ([place]) Comment: Interpretive Data Reference Interval Normal ?>/= 90 mL/min/1.73m2 Mildly decreased* ? 60 - 89 mL/min/1.73m2 Mildly to moderately decreased ?45 - 59 mL/min/1.73m2 Moderately to severely decreased ??30 - 44 mL/min/1.73m2 Severely decreased ?15 - 29 mL/min/1.73m2 Kidney Failure ?< 15 ??mL/min/1.73m2 *Relative to young adult level If -Greek multiply value by 1.16. Estimated glomerular filtration [...] was last reviewed 2015. Blood specimen (specimen) 03/07/2019 4:39 AM CDT 03/07/2019 4:52 AM CDT us Laz Valencia MD LAB BLOOD ORDERABLES Final Resu lt [facility] ([place]) [address] [place] [address] * Pro B-type natriuretic peptide (03/07/2019 4:39 AM CDT) NT-proBNP 195 <=450 pg/mL [facility] ([place]) Comment: Interpretive Comments: A. Dyspnea in Acute [...] Last Revised Date: 2018. Blood specimen (specimen) 03/07/2019 4:39 AM CDT 03/07/2019 4:51 AM CDT Laz Valencia MD LAB BLOOD ORDERABLES Final Resu lt [facility] ([place]) [address] [place] [address] * Basic metabolic panel (03/07/2019 4:39 AM CDT) Sodium 143 135 - 145 mmol/L [facility] ([place]) Potassium, pl 3.9 3.3 - 4.9 mmol/L [facility] ([place]) Chloride 107 97 - 110 mmol/L [facility] ([place]) CO2 26 22 - 32 mmol/L [facility] ([place]) Anion gap 10 2 - 15 mmol/L [facility] ([place]) BUN 16 8 - 25 mg/dL [facility] ([place]) Creatinine 0.70 0.60 - 1.10 mg/dL [facility] ([place]) Glucose 179 70 - 199 mg/dL [facility] ([place]) [...] mg/dL [facility] ([place]) Blood specimen (specimen) 03/07/2019 4:39 AM CDT 03/07/2019 4:52 AM CDT us Laz Valencia MD LAB BLOOD ORDERABLES Final Resu lt Performing Organization Address City/[facility]/ZIP Co de Phone Number [facility] ([place]) [address] [place] [address] * (ABNORMAL) POCT glucose (03/07/2019 2:52 AM CDT) Glucose, POC 229(H) 71 - 98 mg/dL [facility] ([place]) Blood specimen (specimen) 03/07/2019 2:52 AM CDT 03/07/2019 2:52 AM CDT us Maria Del Rosario Vences MD LAB POCT ORDERABLES - DEVICE Fin al Result Performing Organization Address [facility] Co de Phone Number [facility] ([place]) [address] [place] [address] * (ABNORMAL) POCT glucose (03/06/2019 9:22 PM CDT) Glucose, POC 244(H) 71 - 98 mg/dL [facility] ([place]) Blood specimen (specimen) 03/06/2019 9:22 PM CDT 03/06/2019 9:22 PM CDT us Maria Del Rosario Vences MD LAB POCT ORDERABLES - DEVICE Fin al Result Performing Organization Address [facility] Co de Phone Number [facility] ([place]) [address] [place] [address] * (ABNORMAL) POCT glucose (03/06/2019 5:17 PM CDT) Glucose, POC 143(H) 71 - 98 mg/dL [facility] ([place]) Blood specimen (specimen) 03/06/2019 5:17 PM CDT 03/06/2019 5:17 PM CDT us Maria Del Rosario Vences MD LAB POCT ORDERABLES - DEVICE Fin al Result Performing Organization Address City/[facility]/ZIP Co de Phone Number [facility] ([place]) [address] [place] [address] * (ABNORMAL) POCT glucose (03/06/2019 11:35 AM CDT) Glucose, POC 233(H) 71 - 98 mg/dL [facility] ([place]) Blood specimen (specimen) 03/06/2019 11:35 AM CDT 03/06/2019 11:35 AM CDT Roberto Ramos MD LAB POCT ORDERABLES - DEVICE Fin al Result Performing Organization Address [facility] Co de Phone Number [facility] ([place]) [address] [place] [address] * (ABNORMAL) POCT glucose (03/06/2019 7:57 AM CDT) Glucose, POC 133(H) 71 - 98 mg/dL [facility] ([place]) Blood specimen (specimen) 03/06/2019 7:57 AM CDT 03/06/2019 7:57 AM CDT Roberto Ramos MD LAB POCT ORDERABLES - DEVICE Fin al Result Performing Organization Address [facility] Co de Phone Number [facility] ([place]) [address] [place] [address] * eGFR (03/06/2019 6:54 AM CDT) eGFR 85 mL/min/1.7 3 m2 [facility] ([place]) Comment: Interpretive Data Reference Interval Normal ?>/= 90 mL/min/1.73m2 Mildly decreased* ? 60 - 89 mL/min/1.73m2 Mildly to moderately decreased ?45 - 59 mL/min/1.73m2 Moderately to severely decreased ??30 - 44 mL/min/1.73m2 Severely decreased ?15 - 29 mL/min/1.73m2 Kidney Failure ?< 15 ??mL/min/1.73m2 *Relative to young adult level If -Greek multiply value by 1.16. Estimated glomerular filtration [...] was last reviewed 2015. Blood specimen (specimen) 03/06/2019 6:54 AM CDT 03/06/2019 9:23 AM CDT us Roberto Ramos MD LAB BLOOD ORDERABLES Final Resul t [facility] ([place]) [address] [place], [place] [address] * (ABNORMAL) Basic metabolic panel (03/06/2019 6:54 AM CDT) Sodium 143 135 - 145 mmol/L [facility] ([place]) Potassium, pl 3.4 3.3 - 4.9 mmol/L [facility] ([place]) Chloride 103 97 - 110 mmol/L [facility] ([place]) CO2 28 22 - 32 mmol/L [facility] ([place]) Anion gap 12 2 - 15 mmol/L [facility] ([place]) BUN 13 8 - 25 mg/dL [facility] ([place]) Creatinine 0.62 0.60 - 1.10 mg/dL [facility] ([place]) Glucose 131 70 - 199 mg/dL [facility] ([place]) Comment: Interpretive Data Fasting glucose [...] interpretive data was last revised 2017. Calcium 10.7(H) 8.5 - 10.3 mg/dL [facility] ([place]) Blood specimen (specimen) 03/06/2019 6:54 AM CDT 03/06/2019 9:23 AM CDT Roberto Ramos MD LAB BLOOD ORDERABLES Final Resul t Performing Organization Address City/[facility]/ZIP Co de Phone Number [facility] ([place]) [address] [place] [phone] * Magnesium (03/06/2019 6:54 AM CDT) Magnesium 2.2 1.6 - 2.4 mg/dL [facility] Blood specimen (specimen) 03/06/2019 6:54 AM CDT 03/06/2019 9:23 AM CDT Roberto Ramos MD LAB BLOOD ORDERABLES Final Resul t Performing Organization Address [facility] Co de Phone Number [facility] ([place]) [address] [place] [address] * Troponin T (03/06/2019 6:54 AM CDT) Troponin T <0.01 0.00 - 0.01 ng/mL [facility] ([place]) Comment: Interpretive Data Reference ranges for children <18 years of age have not been established. - > or = 18 years: Serial determinations are recommended for the diagnosis of myocardial infarction. ??Temporal rise and fall are consistent with myocardial infarction when at least one value is above the 99th percentile upper reference limit for troponin assay. ??Journal of the [place] [employer] 2012;60:1581-98. Current Interpretive Data Last Revised Date: 2018. Blood specimen (specimen) 03/06/2019 6:54 AM CDT 03/06/2019 7:07 AM CDT Narrative [facility] ([place]) - 03/06/2019 7:37 AM CDT Total of three Christine Cardenas MD LAB BLOOD ORDERABLES Final Result [facility] ([place]) [address] [place] [address] * XR Chest 1 Vw Portable (03/06/2019 2:08 AM CDT) Anatomical Region Laterality Modality Body, Chest N/A Computed Radiogr aphy 03/06/2019 1:34 PM CDT Impressions 03/06/2019 1:35 PM CDT 1. No active disease. Electronically signed by: Jeromy Poole Jr., M.D. Narrative 03/06/2019 1:35 PM CDT XR CHEST 1 VIEW HISTORY: lightheaded. COMPARISON: Portable chest on 04/07/2018 VIEWS: Erect AP portable chest at 0152 hours FINDINGS: Heart size is normal. ??Pulmonary vascularity is normal . 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 No infiltrate, mass or pleural effusion is seen. Bony structures are unremarkable. ??desk monitor wires chest. Procedure Note Jeromy Poole Jr., MD - 03/06/2019 XR CHEST 1 VIEW HISTORY: lightheaded. COMPARISON: Portable chest on 04/07/2018 VIEWS: Erect AP portable chest at 0152 hours FINDINGS: Heart size is normal. Pulmonary vascularity is normal . 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 No infiltrate, mass or pleural effusion is seen. Bony structures are unremarkable. desk monitor wires chest. IMPRESSION: 1. No active disease. Electronically signed by: Jeromy Poole Jr., M.D. Christine Cardenas MD IMG XR PROCEDURES Final Re sult * (ABNORMAL) Urinalysis reflex to microscopic and culture Urine (03/06/2019 1:50 AM CDT) Color, ur Yellow Yellow [facility] ([place]) Clarity, ur Cloudy(A) Clear [facility] ([place]) Specific gravity, ur 1.026(H) 1.010 - 1.025 [facility] ([place]) pH, urine 6.5 [facility] ([place]) Protein, ur ql Negative Negative [facility] ([place]) Glucose, ur ql 3+(A) Negative [facility] ([place]) Ketones, ur Negative Negative [facility] ([place]) Bilirubin, ur Negative Negative [facility] ([place]) Blood, ur Negative Negative [facility] ([place]) Urobilinogen, ur 0.2 mg/dL [facility] ([place]) Nitrite, ur Negative Negative [facility] ([place]) Leukocyte esterase, ur Negative Negative [facility] Urine 03/06/2019 1:50 AM CDT 03/06/2019 1:52 AM CDT Narrative [facility] - 03/06/2019 1:56 AM CDT ?? Urine pH is affected by diet, medications, systemic acid-base disturbances, and renal tubular function. ??pH may affect urinary stone formation. ??For example, urine pH below 6.0 may help reduce the tendency for calcium phosphate stones and pH greater than 6.0 may reduce the tendency for uric acid stone formation. Source: [facility] Weight Wins. Last revised 05-29-2017 us Christine Cardenas MD LAB MICROBIOLOGY - GENERAL ORDERABLES Final Result [facility] ([place]) [address] [place] [address] * eGFR (03/05/2019 10:52 PM CDT) eGFR 75 mL/min/1.7 3 m2 [facility] Comment: Interpretive Data Reference Interval Normal ?>/= 90 mL/min/1.73m2 Mildly decreased* ? 60 - 89 mL/min/1.73m2 Mildly to moderately decreased ?45 - 59 mL/min/1.73m2 Moderately to severely decreased ??30 - 44 mL/min/1.73m2 Severely decreased ?15 - 29 mL/min/1.73m2 Kidney Failure ?< 15 ??mL/min/1.73m2 *Relative to young adult level If -Greek multiply value by 1.16. Estimated glomerular filtration [...] was last reviewed 2015. Blood specimen (specimen) 03/05/2019 10:52 PM CDT 03/05/2019 10:57 PM CDT Kelly Garcia MD LAB BLOOD ORDERABLE S Final Result [facility] ([place]) [address] [place] [id number] * (ABNORMAL) Differential, auto (03/05/2019 10:52 PM CDT) Neutrophil abs 8.1(H) 1.7 - 6.5 K/cumm [facility] ([place]) Imm gran abs 0.0 0.0 - 0.1 K/cumm [facility] ([place]) Lymphocyte abs 0.8 0.8 - 3.3 K/cumm [facility] ([place]) Monocyte abs 1.0(H) 0.2 - 0.8 K/cumm [facility] ([place]) Eosinophil abs 0.1 0.0 - 0.5 K/cumm [facility] ([place]) Basophil abs 0.0 0.0 - 0.1 K/cumm [facility] ([place]) Neutrophil pct 79.8 % [facility] ([place]) Comment: Interpretive [...] was last revised on 2017. Lymphocyte pct 8.3 % [facility] ([place]) Comment: Interpretive Data Percent cell count reference ranges are not reported, since discordance with absolute values may lead to misinterpretation of CBC data. Current Interpretive Data was last revised on 2017. Monocyte pct 9.7 % [facility] ([place]) Comment: Interpretive Data [...] revised on 2017. Basophil pct 0.4 % [facility] ([place]) Comment: Interpretive Data Percent cell count reference ranges are not reported, since discordance with absolute values may lead to misinterpretation of CBC data. Current Interpretive Data was last revised on 2017. Blood specimen (specimen) 03/05/2019 10:52 PM CDT 03/05/2019 10:57 PM CDT us Kelly Garcia MD LAB BLOOD ORDERABLE S Final Result [facility] ([place]) [address] [place] [address] * Troponin T (03/05/2019 10:52 PM CDT) Troponin T <0.01 0.00 - 0.01 ng/mL [facility] ([place]) Comment: Interpretive Data Reference ranges for children <18 years of age have not been established. - > or = 18 years: Serial determinations are recommended for the diagnosis of myocardial infarction. ??Temporal rise and fall are consistent with myocardial infarction when at least one value is above the 99th percentile upper reference limit for troponin assay. ??Journal of the [place] [employer] 2012;60:1581-98. Current Interpretive Data Last Revised Date: 2018. Blood specimen (specimen) 03/05/2019 10:52 PM CDT 03/05/2019 10:57 PM CDT us Kelly Garcia MD LAB BLOOD ORDERABLE S Final Result [facility] ([place]) [address] [place] [id number] * (ABNORMAL) CBC with auto differential (03/05/2019 10:52 PM CDT) WBC 10.2(H) 3.8 - 9.9 K/cumm [facility] ([place]) Hgb 12.7 11.9 - 15.5 g/dL [facility] ([place]) Hct 40.0 35.6 - 45.5 % [facility] ([place]) Plt 315 150 - 400 K/cumm [facility] ([place]) MPV 10.5 9.1 - 12.3 fL [facility] ([place]) RBC 4.70 3.90 - 5.20 M/cumm [facility] ([place]) MCV 85.1 81.3 - 96.4 fL [facility] ([place]) MCH 27.0(L) 27.1 - 33.3 pg [facility] ([place]) MCHC 31.8(L) 32.3 - 35.7 g/dL [facility] ([place]) RDW CV 16.1(H) 11.1 - 14.9 % [facility] ([place]) RDW SD 49.6(H) 35.7 - 48.1 fL [facility] ([place]) NRBC abs 0.00 0.00 - 0.01 K/cumm [facility] ([place]) Blood specimen (specimen) 03/05/2019 10:52 PM CDT 03/05/2019 10:57 PM CDT us Kelly Garcia MD LAB BLOOD ORDERABLE S Final Result Performing Organization Address City/[facility]/ZIP Co de Phone Number [facility] ([place]) [address] [place] [address] * (ABNORMAL) Basic metabolic panel (03/05/2019 10:52 PM CDT) Sodium 138 135 - 145 mmol/L [facility] ([place]) Potassium, pl 3.2(L) 3.3 - 4.9 mmol/L [facility] ([place]) Chloride 98 97 - 110 mmol/L [facility] ([place]) CO2 30 22 - 32 mmol/L [facility] ([place]) Anion gap 10 2 - 15 mmol/L [facility] ([place]) BUN 15 8 - 25 mg/dL [facility] ([place]) Creatinine 0.75 0.60 - 1.10 mg/dL [facility] ([place]) Glucose 257(H) 70 - 199 mg/dL [facility] ([place]) [...] mg/dL [facility] ([place]) Blood specimen (specimen) 03/05/2019 10:52 PM CDT 03/05/2019 10:57 PM CDT Kelly Garcia MD LAB BLOOD ORDERABLE S Final Result Performing Organization Address City/[facility]/ZIP Co de Phone Number [facility] ([place]) [address] [place] [address] * ECG 12 lead (03/05/2019 10:09 PM CDT) 03/05/2019 10:0 9 PM CDT Narrative [facility] - 03/06/2019 1:55 PM CDT Vent Rate: 62 bpm RR Interval: 965 msec MO Interval: 192 msec QRS Duration: 126 msec QT Interval: 369 msec QTC Interval: 374 msec P-R-T Kipling: 47 - -26 - 34 degrees SINUS RHYTHM BORDERLINE LEFT AXIS DEVIATION [QRS AXIS < -20] MODERATE INTRAVENTRICULAR CONDUCTION DELAY [110+ ms QRS DURATION] NONSPECIFIC T-WAVE ABNORMALITY BORDERLINE ECG No change from prior EKG Electronically Signed By: Laz Valencia MD us Kelly Garcia MD ECG ORDERABLES Fin al Result [facility] documented in this encounter Visit Diagnoses Diagnosis Weakness generalized- Primary Other malaise and fatigue Weakness generalized Other malaise and fatigue Peripheral edema Edema documented in this encounter Administered Medications Inactive Administered Medications - up to 3 most recent administrations Medication Order MAR Action Action Date Dose Rate Site albuterol (PROVENTIL,VENTOLIN) 2.5 mg /3 mL (0.083 %) nebulizer solution 2.5 mg 2.5 mg, nebulization, Every 6 hours PRN (registered respiratory technician), wheezing, Starting on 03/06/19 at 1633 aspirin 81 mg enteric coated tablet - ADS Override Pull Starting on 03/06/19 at 0529, For 1 dose, Created by cabinet override Do not crush, chew, cut, dissolve, open or otherwise manipulate tablet/capsule. Given 03/06/2019 6:12 AM CDT 81 mg aspirin enteric coated tablet 81 mg 81 mg, oral, Daily, First dose on 03/07/19 at 0900, Do not crush, chew, cut, dissolve, open or otherwise manipulate tablet/capsule. Given 03/08/2019 9:41 AM CDT 81 mg Given 03/07/2019 8:10 AM CDT 81 mg bisacodyl EC (DULCOLAX EC) tablet 10 mg 10 mg, oral, Daily PRN, constipation, If no results 24 hours after milk of magnesia, Starting on 03/08/19 at 0514, Do not crush, chew, cut, dissolve, open or otherwise manipulate tablet/capsule., Indications: constipationIndications:constipation clopidogrel (PLAVIX) tablet 75 mg 75 mg, oral, Daily, First dose on 03/06/19 at 1700 Given 03/08/2019 9:42 AM CDT 75 mg Given 03/07/2019 8:09 AM CDT 75 mg Given 03/06/2019 5:10 PM CDT 75 mg dextrose (D10W) 10% bolus 250 mL 250 mL, intravenous, at 1,000 mL/hr, Administer over 15 Minutes, Every 15 min PRN, blood glucose less than 70 mg/dL and UNABLE to swallow/take PO glucose/juice., Starting on 03/06/19 at 0525, After treatment for hypoglycemia, recheck BG followed [...] glucose less than 70 mg/dL, Starting on 03/06/19 at 0525, If patient is alert and able to [...] 10 mg, oral, Daily, First dose on 03/07/19 at 0900, Indications: type 2 diabetes mellitusIndications:type 2 diabetes mellitus Given 03/08/2019 9:41 AM CDT 10 mg Given 03/07/2019 8:10 AM CDT 10 mg enoxaparin (LOVENOX) syringe 40 mg 40 mg, subcutaneous, Daily (for enoxaparin), First dose on 03/06/19 at 2100, Indications: Deep Vein Thrombosis PreventionIndications:Deep Vein Thrombosis Prevention Given 03/07/2019 8:34 PM CDT 40 mg Right Lower Abdomen Given 03/06/2019 9:22 PM CDT 40 mg Ri ght Upper Abdomen flecainide (TAMBOCOR) tablet 50 mg 50 mg, oral, 2 times daily, First dose on 03/06/19 at 2100 Given 03/08/2019 9:41 AM CDT 50 mg Given 03/07/2019 8:34 PM CDT 50 mg Given 03/07/2019 8:10 AM CDT 50 mg furosemide (LASIX) 10 mg/mL injection 40 mg 40 mg, intravenous, Administer over 1 Minutes, 2 times daily (for diuretics), First dose on 03/06/19 at 1600, Room temperature only Given 03/08/2019 9:4 2 AM CDT 40 mg Given 03/07/2019 4:17 PM CDT 40 mg furosemide (LASIX) tablet 40 mg 40 mg, oral, Daily, First dose on 03/09/19 at 0900 furosemide (LASIX) tablet 80 mg 80 mg, oral, Once, On 03/06/19 at 1615, For 1 dose Given 03/06/2019 5:08 PM CDT 80 mg insulin lispro (HumaLOG) pen injection 1-2 Units 1-2 Units, subcutaneous, Nightly, First dose on 03/06/19 at 2100, Blood Sugar Low Dose PM - PO patients 200 or less No Insulin 201 - 250 1 unit 251 - 299 2 units Greater than 299 Call MD for hyperglycemia management instructions Do NOT hold for NPO status., Indications: Diabetes MellitusIndications:Diabetes Mellitus Given 03/06/2019 9:23 PM CDT 1 Units Right Upper Arm insulin lispro (HumaLOG) pen injection 1-3 Units 1-3 Units, subcutaneous, 3 times daily with meals, First dose on 03/06/19 at 0800, Blood Sugar Low Dose meal time - PO patients 175 or less No Insulin 176 - 200 1 unit 201 - 250 2 units 251 - 299 3 units Greater than 299 Call MD for hyperglycemia management instructions Do NOT hold for NPO status., Indications: Diabetes MellitusIndications:Diabetes Mellitus Given 03/06/2019 11:37 AM CDT 2 Units Right Upper Abdomen levothyroxine (SYNTHROID) tablet 25 mcg 25 mcg, oral, Daily (early AM), First dose on 03/07/19 at 0600, Administer on an empty stomach, preferably 30 minutes before breakfast. Take 4 hours apart from antacids, iron and calcium products. Given 03/08/2019 5:37 AM CDT 25 mcg Given 03/07/2019 6:04 AM CDT 25 mcg magnesium hydroxide (MILK OF MAGNESIA) 80 mg/mL (33.3 mg/mL as elemental magnesium) oral suspension 30 mL 30 mL, oral, Daily PRN, constipation, Starting on 03/08/19 at 0514 Given 03/08/2019 5:43 AM CDT 30 mL metOLazone (ZAROXOLYN) tablet 2.5 mg 2.5 mg, oral, Once, On 03/08/19 at 1015, For 1 dose Given 03/08/2019 11:28 AM CDT 2.5 mg miconazole 2 % powder topical, 2 times daily, First dose on 03/06/19 at 0900, Apply to affected area: rash, abdomen Given 03/08/2019 9:45 AM CDT Given 03/07/2019 8:35 PM CDT Given 03/07/2019 8:11 AM CDT mineral oil (FLEET MINERAL OIL) enema 1 enema 1 enema, rectal, Daily PRN, constipation, if no results 24 hours after bisacodyl, Starting on 03/08/19 at 0514, Indications: constipationIndications:constipation polyvinyl alcohol (LIQUIFILM TEARS) 1.4 % ophthalmic solution 1 drop 1 drop, each eye, 3 times daily PRN, dry eyes, Starting on 03/06/19 at 1637 potassium chloride ER (KLOR-CON) extended release tablet 20 mEq 20 mEq, oral, Once, On 03/06/19 at 0254, For 1 dose, Do not crush, chew, cut, dissolve, open or otherwise manipulate tablet/capsule. Given 03/06/2019 3:07 AM CDT 20 mEq potassium chloride ER (KLOR-CON) extended release tablet 40 mEq 40 mEq, oral, Once, On 03/06/19 at 0930, For 1 dose, Do not crush, chew, cut, dissolve, open or otherwise manipulate tablet/capsule. Given 03/06/2019 10:35 AM CDT 40 mEq potassium chloride ER (KLOR-CON) extended release tablet 40 mEq 40 mEq, oral, 2 times daily, First dose on 03/06/19 at 2100, Do not crush, chew, cut, dissolve, open or otherwise manipulate tablet/capsule. Given 03/07/2019 8:09 AM CDT 40 mEq Given 03/06/2019 9:22 PM CDT 40 mEq rosuvastatin (CRESTOR) tablet 10 mg 10 mg, oral, Daily, First dose on 03/06/19 at 1700 Given 03/08/2019 9:41 AM CDT 10 mg Given 03/07/2019 8:10 AM CDT 10 mg Given 03/06/2019 5:08 PM CDT 10 mg sodium chloride 0.9% infusion 50 mL/hr, intravenous, Continuous, Starting on 03/06/19 at 0600 New Bag 03/06/2019 5:25 AM CDT 50 mL/hr 50 mL/hr verapamil SR (CALAN SR) extended release tablet 240 mg 240 mg, oral, Daily, First dose on 03/06/19 at 1715, Tablets that are scored may be split, but do not crush, chew, dissolve, open or otherwise manipulate tablet/capsule. Given 03/08/2019 9:41 AM CDT 240 mg Given 03/07/2019 8:09 AM CDT 240 mg Given 03/06/2019 5:08 PM CDT 240 mg documented in this encounter Discontinued Medications Medication Sig Discontinue Reason Start Date End Da te amitriptyline (ELAVIL) 25 mg tablet take 1 Tablet by oral route every day at bedtime Formulary change 07/01/2016 03/06/2019 clotrimazole-betamet hasone (LOTRISONE) cream apply by topical route 2 times every day for 2 weeks to the affected and surrounding areas of skin in the morning and evening Therapy completed 07/01/2016 03/06/2019 empagliflozin (JARDIANCE) 10 mg tablet take 1 tablet by oral route every day in the morning Therapy completed 08/30/2015 03/06/2019 empagliflozin (JARDIANCE) 10 mg tablet take 1 tablet by oral route every day in the morning Therapy completed 07/01/2016 03/06/2019 glimepiride (AMARYL) 1 mg tablet take 1.5 tablet by oral route with breakfast, 2 tablets with lunch and 2.5 tablets with dinner Therapy completed 08/05/2014 03/06/2019 glimepiride (AMARYL) 1 mg tablet take 1.5 tablets po at breakfast, 2 tab. po at lunch, 2.5 tab with dinner Therapy completed 07/01/2016 03/06/2019 insulin detemir (LEVEMIR FLEXTOUCH) 100 unit/mL (3 mL) insulin pen inject 10 units QHS by subcutaneous route per prescriber's instructions. Insulin dosing requires individualization. Therapy completed 03/10/2015 03/06/2019 metOLazone (ZAROXOLYN) 2.5 mg tabletIndications:hy pertension Take 2.5 mg by mouth once a week. Therapy completed 03/06/2019 potassium chloride ER (KLOR-CON) 10 mEq CR tablet Take 40 mEq by mouth 2 (two) times a day Reorder 03/08/2019 metOLazone (ZAROXOLYN) 2.5 mg tablet Take 2.5 mg by mouth once a week Reorder 03/08/2019 cyanocobalamin, vitamin B-12, (VITAMIN B-12) 1,000 mcg tablet extended release 1 po daily Stop Taking at Discharge 07/18/2009 03/08/2019 latanoprost (XALATAN) 0.005 % ophthalmic solution instill 1 drop by Ophthalmic route every day into affected eye(s)in the evening Stop Taking at Discharge 07/18/2009 03/08/2019 SITagliptin (JANUVIA) 100 mg tablet take 1 tablet by oral route every day Stop Taking at Discharge 03/10/2015 03/08/2019 latanoprost (XALATAN) 0.005 % ophthalmic solution instill 1 drop by ophthalmic route every day into affected eye(s) in the evening Stop Taking at Discharge 02/16/2016 03/08/2019 clopidogrel (PLAVIX) 75 mg tablet TAKE ONE BY MOUTH ONE TIME PER DAY Stop Taking at Discharge 01/29/2007 03/08/2019 rosuvastatin (CRESTOR) 10 mg tablet take 1 tablet by oral route every day Stop Taking at Discharge 07/01/2016 03/08/[address] (NexIUM) 40 mg capsule take 1 Capsule by oral route every day Stop Taking at Discharge 07/01/2016 03/08/2019 peg 400-propylene glycol (SYSTANE) 0.4-0.3 % ophthalmic solution Administer 1 drop into both eyes as needed. Stop Taking at Discharge 03/08/2019 documented as of this encounter Historical Medications * This list may reflect changes made after this encounter. 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 Scheduled Medication Order 03/06/2019 03/07/2019 03/08/2019 aspirin enteric coated tablet 81 mg 81 mg, oral, Daily, First dose on 03/07/19 at 0900, Do not crush, chew, cut, dissolve, open or otherwise manipulate tablet/capsule. 0810 (Given - Provider: Jessy Mayes RN) 0941 (Given - Provider: Jessy Mayes RN) clopidogrel (PLAVIX) tablet 75 mg 75 mg, oral, Daily, First dose on 03/06/19 at 1700 1710 (Given - Provider: Alexandre Peace RN) 0809 (Given - Provider: Jessy Mayes RN) 0942 (Given - Provider: Jessy Mayes, DES) empagliflozin (JARDIANCE) tablet 10 mg 10 mg, oral, Daily, First dose on 03/07/19 at 0900, Indications: type 2 diabetes mellitus 0810 (Given - Provider: Jessy Mayes RN) 0941 (Given - Provider: Jessy Mayes RN) enoxaparin (LOVENOX) syringe 40 mg 40 mg, subcutaneous, Daily (for enoxaparin), First dose on 03/06/19 at 2100, Indications: Deep Vein Thrombosis Prevention 2121 (Given - Provider: Sanjuana Jackson RN) 2033 (Given - Provider: Ludy Velasco, RN) flecainide (TAMBOCOR) tablet 50 mg 50 mg, oral, 2 times daily, First dose on 03/06/19 at 2100 2121 (Given - Provider: Sanjuana Jackson RN) 0810 (Given - Provider: Jessy Mayes, RN)2033 (Given - Provider: Ludy Velasco, RN) 0941 (Given - Provider: Jessy Mayes, DES) furosemide (LASIX) 10 mg/mL injection 40 mg (CANCELED) 40 mg, intravenous, Administer over 1 Minutes, 2 times daily (for diuretics), First dose on 03/06/19 at 1600, Room temperature only 1536 (Not Given - Provider: Alexandre Peace RN - Reason: Loss of IV access) 0802 (Not Given - Provider: Jessy Mayes, DES - Reason: Patient/family refused)1617 (Given - Provider: Jessy Mayes, DES) 0942 (Given - Provider: Jessy Mayes, DES) furosemide (LASIX) tablet 40 mg 40 mg, oral, Daily, First dose on Tu03/09/19 at 0900 furosemide (LASIX) tablet 80 mg (COMPLETED) 80 mg, oral, Once, On 03/06/19 at 1615, For 1 dose 1708 (Given - Provider: Alexandre Peace RN) insulin lispro (HumaLOG) pen injection 1-2 Units 1-2 Units, subcutaneous, Nightly, First dose on 03/06/19 at 2100, Blood Sugar Low Dose PM - PO patients 200 or less No Insulin 201 - 250 1 unit 251 - 299 2 units Greater than 299 Call MD for hyperglycemia management instructions Do NOT hold for NPO status., Indications: Diabetes Mellitus 2122 (Given - Provider: Sanjuana Jackson, DES) 2033 (Not Given - Provider: Ludy Velasco, RN - Reason: Order parameters not met) insulin lispro (HumaLOG) pen injection 1-3 Units 1-3 Units, subcutaneous, 3 times daily with meals, First dose on 03/06/19 at 0800, Blood Sugar Low Dose meal time - PO patients 175 or less No Insulin 176 - 200 1 unit 201 - 250 2 units 251 - 299 3 units Greater than 299 Call MD for hyperglycemia management instructions Do NOT hold for NPO status., Indications: Diabetes Mellitus 0758 (Not Given - Provider: Alexandre Peace RN - Reason: Order parameters not met)1137 (Given - Provider: Alexandre Peace RN)1717 (Not Given - Provider: Alexandre Peace RN - Reason: Order parameters not met) 0802 (Not Given - Provider: Jessy Mayes RN - Reason: Order parameters not met)1259 (Not Given - Provider: Jessy Mayes RN - Reason: Order parameters not met)1718 (Not Given - Provider: Jessy Mayes RN - Reason: Order parameters not met) 0754 (Not Given - Provider: Jessy Mayes RN - Reason: Order parameters not met)1129 (Not Given - Provider: Jessy Mayes RN - Reason: Other) levothyroxine (SYNTHROID) tablet 25 mcg 25 mcg, oral, Daily (early AM), First dose on Fri03/07/19 at 0600, Administer on an empty stomach, preferably 30 minutes before breakfast. Take 4 hours apart from antacids, iron and calcium products. 0604 (Given - Provider: Sanjuana Jackson RN) 0537 (Given - Provider: Ludy Velasco, DES) metOLazone (ZAROXOLYN) tablet 2.5 mg (COMPLETED) 2.5 mg, oral, Once, On 03/08/19 at 1015, For 1 dose 1128 (Given - Provider: Jessy Mayes, DES) miconazole 2 % powder topical, 2 times daily, First dose on 03/06/19 at 0900, Apply to affected area: rash, abdomen 0800 (Given - Provider: Alexandre Peace RN)2124 (Given - Provider: Sanjuana Jackson RN) 08 (Given - Provider: Jessy Mayes, DES)2034 (Given - Provider: Ludy Velasco, DES) 0945 (Given - Provider: Jessy Mayes, DES) potassium chloride ER (KLOR-CON) extended release tablet 20 mEq (COMPLETED) 20 mEq, oral, Once, On 03/06/19 at 0254, For 1 dose, Do not crush, chew, cut, dissolve, open or otherwise manipulate tablet/capsule. 0307 (Given - Provider: Yarelis Terrell, DES) potassium chloride ER (KLOR-CON) extended release tablet 40 mEq (COMPLETED) 40 mEq, oral, Once, On 03/06/19 at 0930, For 1 dose, Do not crush, chew, cut, dissolve, open or otherwise manipulate tablet/capsule. 1035 (Given - Provider: Alexandre Peace RN) potassium chloride ER (KLOR-CON) extended release tablet 40 mEq (CANCELED) 40 mEq, oral, 2 times daily, First dose on 03/06/19 at 2100, Do not crush, chew, cut, dissolve, open or otherwise manipulate tablet/capsule. 2122 (Given - Provider: Sanjuana Jackson RN) 0809 (Given - Provider: Jessy Mayes, DES) rosuvastatin (CRESTOR) tablet 10 mg 10 mg, oral, Daily, First dose on 03/06/19 at 1700 1708 (Given - Provider: Alexandre Peace RN) 0810 (Given - Provider: Jessy Mayes, DES) 0941 (Given - Provider: Jessy Mayes, DES) verapamil SR (CALAN SR) extended release tablet 240 mg 240 mg, oral, Daily, First dose on 03/06/19 at 1715, Tablets that are scored may be split, but do not crush, chew, dissolve, open or otherwise manipulate tablet/capsule. 1708 (Given - Provider: Alexandre Peace RN) 0809 (Given - Provider: Jessy Mayes RN) 0941 (Given - Provider: Jessy Mayes RN) Continuous Medication Order 03/06/2019 03/07/2019 03/08/2019 sodium chloride 0.9% infusion (CANCELED) 50 mL/hr, intravenous, Continuous, Starting on 03/06/19 at 0600 0525 (New Bag - Provider: Brandi Roca RN) PRN Medication Order 03/06/2019 03/07/2019 03/08/2019 albuterol (PROVENTIL,VENTOLIN) 2.5 mg /3 mL (0.083 %) nebulizer solution 2.5 mg 2.5 mg, nebulization, Every 6 hours PRN (registered respiratory technician), wheezing, Starting on 03/06/19 at 1633 bisacodyl EC (DULCOLAX EC) tablet 10 mg 10 mg, oral, Daily PRN, constipation, If no results 24 hours after milk of magnesia, Starting on 03/08/19 at 0514, Do not crush, chew, cut, dissolve, open or otherwise manipulate tablet/capsule., Indications: constipation dextrose (D10W) 10% bolus 250 mL(Linked Group 1) 250 mL, intravenous, at 1,000 mL/hr, Administer over 15 Minutes, Every 15 min PRN, blood glucose less than 70 mg/dL and UNABLE to swallow/take PO glucose/juice., Starting on 03/06/19 at 0525, After treatment for hypoglycemia, recheck BG followed [...] glucose less than 70 mg/dL, Starting on 03/06/19 at 0525, If patient is alert and able to [...] unable to take PO glucose/jiuce., Starting on 03/06/19 at 0524, After Glucagon is administered, position patient on [...] mL, oral, Daily PRN, constipation, Starting on 03/08/19 at 0514 0543 (Given - Provid er: Ludy Velasco RN) mineral oil (FLEET MINERAL OIL) enema 1 enema 1 enema, rectal, Daily PRN, constipation, if no results 24 hours after bisacodyl, Starting on 03/08/19 at 0514, Indications: constipation polyvinyl alcohol (LIQUIFILM TEARS) 1.4 % ophthalmic solution 1 drop 1 drop, each eye, 3 times daily PRN, dry eyes, Starting on 03/06/19 at 1637 No Frequency Medication Order 03/06/2019 03/07/2019 03/08/2019 aspirin 81 mg enteric coated tablet - ADS Override Pull (COMPLETED) Starting on 03/06/19 at 0529, For 1 dose, Created by cabinet override Do not crush, chew, cut, dissolve, open or otherwise manipulate tablet/capsule. 0612 (Given - Provider: Brandi Roca RN) Linked Groups Order Group 1: dextrose gel in packet 15 gJump to med 15 g, oral, Every 15 min PRN, low blood sugar, blood glucose less than 70 mg/dL, Starting on 03/06/19 at 0525, If patient is alert and able to [...] UNABLE to swallow/take PO glucose/juice., Starting on 03/06/19 at 0525, After treatment for hypoglycemia, recheck BG followed [...] Count Last Ordered Date First Ordered Date bisacodyl EC (DULCOLAX EC) tablet 10 mg 1 1 furosemide (LASIX) 10 mg/mL injection 40 mg 1 03/08/2019 furosemide (LASIX) tablet 40 mg 1 9 mineral oil (FLEET MINERAL O IL) enema 1 enema 1 03/08/2019 albuterol (PROVENTIL,VENTOLI N) 2.5 mg /3 mL (0.083 %) nebulizer solution 2.5 mg 1 03/06/2019 albuterol HFA (PROVENTIL HFA ,VENTOLIN HFA,PROAIR HFA) 90 mcg/actuation inhaler 2 puff 1 03/06/2019 artificial tears (SYSTANE) 0 .3 % ophthalmic gel 1 drop 1 03/06/2019 aspirin chewable tablet 81 mg 1 03/06/2019 dextrose (D10W) 10% bolus 250 mL 1 03/06/20 dextrose gel in packet 15 g 1 03/06/2019 enoxaparin (LOVENOX) syringe 30 mg 1 2018 glucagon injection 1 mg 1 03/06/2019 polyvinyl alcohol (LIQUIFILM TEARS) 1.4 % ophthalmic solution 1 drop 1 03/06/2019 verapamil ER (VERELAN) 24 ho ur capsule 240 mg 1 03/06/2019 Lab Orders Without Results Count Last Ordered D ate First Ordered Date POCT GLUCOSE DEVICE 8 03/08/2019 03/06/20 EKG Orders Without Results Count Last Ordered D ate First Ordered Date ECG 12-LEAD 1 03/06/2019 Nursing Count Last Ordered Date First Orde red Date WEIGH PATIENT 2 03/06/2019 Consult Count Last Ordered Date First Orde red Date IP CONSULT TO CARDIOLOGY 1 03/06/2019 ADT Patient Update Count Last Ordered Date Firs t Ordered Date ED IP DECISION TO ADMIT 1 03/06/2019 documented in this encounter Care Teams Principal Security Architect Relationship Specialty Start Date End Date Theresa Camargo MD PCP - General 09/29/18 12/05/22 documented as of this encounter
--- OUTSIDE RECORDS SUMMARY | 2024-05-26 13:02 | XMS_ITS | Encounter Summary ---
Author Organization [facility] Healthcare Address [address] [place] [address] Care Team Providers Care Cupola Patcher Name Role Phone Jarrell Garrison MD Primary Care Provider [phone] Encounter Details Date Type Department Care Team (Late st Contact Info) Description 12/22/2015 11:38 AM CDT - 12/22/2015 12:36 PM CDT Hospital Encounter [facility] PETRACONAlysha So MD [address] [place] [id number] Contusion of right great toe without damage to nail; Abrasion of right great toe; Type 2 diabetes mellitus with diabetic neuropathy (CMS/HCC); Other cause of strike by thrown, projected or falling object, initial encounter; Engages in activity; Other specified places as the place of occurrence of the external cause; Other external cause status Social History Tobacco Use Types Packs/Day Years Used Date Smoking Tobacco: Never Alcohol Use Standard Drinks/Week Comments No 0 (1 standard drink = 0.6 oz pur e alcohol) Comments Unknown Sex and Gender Information Value Date Recorded Sex Assigned at Not on file 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 [id number] ??Acc#: ??[id number] DATE OF EXAM: ??Dec ??2015 CLINICAL HISTORY: Pain in the 1st digit after dropping a jar on the foot. RESULT: AP, lateral and oblique views of the right foot were obtained. No acute fracture is seen. A mild hallux valgus deformity is noted. No lytic or blastic lesions are identified. Mild periarticular osteopenia is present. IMPRESSION: 1. ??NO FRACTURE. 2. ??HALLUX VALGUS. 3. ??MILD PERIARTICULAR OSTEOPENIA CONSISTENT WITH THE PATIENT'S KNOWN NEUROPATHY. Interpreting Physician: ??BRIANNA BANSAL M.D. ??Read on: ??Dec ??2015 12:31P Transcribed by: ??TXD ??On: Dec ??2015 ??2:10P Approved Electronically by: ??BRIANNA BANSAL M.D. ??on: ??Dec ??2015 3:14P Attending: ??ALYSHA HUI Requesting: ??JANNETH JAUREGUI Requesting Fax: ??-- Attending Fax: ??[phone] Attending ID: ??[id number] Requesting ID: ??[id number] Report To 1 ID: ??[id number] Report To 1 Name: ??ALYSHA HUI Report To 1 FAX: ??[phone] NextGen Order #: Procedure Note Provider, MD Desiree - 09/11/2016 XR Toe R-Great [id number] Acc#: [id number] DATE OF EXAM: Dec 22 2015 CLINICAL HISTORY: Pain in the 1st digit after dropping a jar on the foot. RESULT: AP, lateral and oblique views of the right foot were obtained. No acutefracture is seen. A mild hallux valgus deformity is noted. No lytic orblastic lesions are identified. Mild periarticular osteopenia ispresent. IMPRESSION: 1. NO FRACTURE. 2. HALLUX VALGUS. 3. MILD PERIARTICULAR OSTEOPENIA CONSISTENT WITH THE PATIENT'S KNOWNNEUROPATHY. Interpreting Physician: BRIANNA BANSAL M.D. Read on: Dec 22 201512:31P Transcribed by: LORENAD On: Dec 22 2015 2:10P Approved Electronically by: BRIANNA BANSAL M.D. on: Dec 22 20153:14P Attending: ALYSHA HUI Requesting: JANNETH JAUREGUI Requesting Fax: -- Attending Attending ID: [id number] Requesting ID: [id number] Report To 1 ID: [id number] Report To 1 Name: ALYSHA HUI Report To 1 FAX: [phone] NextGen Order #: us Historical Provider MD GOMES XR PROCEDURES Final R esult documented in this encounter Visit Diagnoses Diagnosis Contusion of right great toe without damage to nail Abrasion of right great toe Type 2 diabetes mellitus with diabetic neuropathy (CMS/HCC) (HCC) Other cause of strike by thrown, projected or falling object, initial encounter Engages in activity Other specified places as the place of occurrence of the external cause Other external cause status documented in this encounter Care Teams Cupola Patcher Relationship Specialty Start Date End Date Jarrell Garrison MD PCP - General 09/26/15 08/15/16 documented as of this encounter
--- OUTSIDE RECORDS SUMMARY | 2024-05-26 13:02 | XMS_ITS | Encounter Summary ---
Author Organization [facility] Healthcare Address [address] [place] [address] Care Team Providers Care Automotive Artist Name Role Phone Jarrell Garrison MD Primary Care Provider [phone] Encounter Details Date Type Department Care Team (Late st Contact Info) Description 02/12/2016 4:49 PM CDT - 02/12/2016 11:59 PM CDT Hospital Encounter [facility] Darin Toledo MD [address] [place], [place] [id number] Syncope and collapse Social History Tobacco Use Types Packs/Day Years Used Date Smoking Tobacco: Never Alcohol Use Standard Drinks/Week Comments No 0 (1 standard drink = 0.6 oz pur e alcohol) Comments Unknown Sex and Gender Information Value Date Recorded Sex Assigned at Not on file 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 ??There were several transmissions all of which were reviewed by me. ??Patient had no urgent reports. ??Only one complaint of light headedness and dizziness on March 03--sinus rhythm with 1st degree AV block and one PVC. IMPRESSION: THUS, THIS IS A BENIGN APPEARING 30 DAY CARDIAC MONITORING WITH NO SIGNIFICANT FINDINGS DURING PATIENT'S ONLY COMPLAINT. ??NO OTHER FINDINGS OF ANY SIGNIFICANCE. Interpreting Physician: ??DR DARIN DIXON M.D. ??Read on: ??Nov ??2015 9:25P Transcribed by: ??ozzy ??On: Mar ??2015 ??9:25P Approved Electronically by: ??DR DARIN DIXON M.D. ??on: ??Nov ??2015 4:14P Attending: ??DARIN DIXON Requesting: ??DR DARIN DIXON Requesting Fax: ??[phone] Attending Fax: ??-- Attending ID: ??[id number] Requesting ID: ??[id number] Report To 1 ID: ??[id number] Report To 1 Name: ??DARIN DIXON Report To 1 FAX: ??-- NextGen Order #: Procedure Note Provider, MD Desiree - 09/25/2016 TELE EVENT MONITOR 21 DAY Acc#: [id number] DATE OF EXAM: Feb 12 2016 CLINICAL HISTORY: RESULT: Perla Leon was monitored for 30 days. There were severaltransmissions all of which were reviewed by me. Patient had no urgentreports. Only one complaint of light headedness and dizziness on --sinus rhythm with 1st degree AV block and one PVC. IMPRESSION: THUS, THIS IS A BENIGN APPEARING 30 DAY CARDIAC MONITORING WITH NOSIGNIFICANT FINDINGS DURING PATIENT'S ONLY COMPLAINT. NO OTHER FINDINGSOF ANY SIGNIFICANCE. Interpreting Physician: DR DARIN DIXON M.D. Read on: Mar 20 20169:25P Transcribed by: ozzy On: Mar 20 2016 9:25P Approved Electronically by: DR DARIN DIXON M.D. on: Mar 22 20164:14P Attending: DARIN DIXON Requesting: DR DARIN DIXON Requesting Attending Fax: -- Attending ID: [id number] Requesting ID: [id number] Report To 1 ID: [id number] Report To 1 Name: DARIN DIXON Report To 1 FAX: -- NextGen Order #: us Historical Provider [facility] JOSE MUSA Final Result documented in this encounter Visit Diagnoses Diagnosis Syncope and collapse documented in this encounter Care Teams Automotive Artist Relationship Specialty Start Date End Date Jarrell Garrison MD PCP - General 09/26/15 08/15/16 documented as of this encounter
--- OUTSIDE RECORDS SUMMARY | 2024-05-26 13:02 | XMS_ITS | Encounter Summary ---
Author Organization [facility] Healthcare Address [address] [place] [address] Care Team Providers Care Business Planning Director Name Role Phone Jarrell Garrison MD Primary Care Provider [phone] Reason for Referral * (Routine) - Closed Specialty Diagnoses / Procedures Referred By Alejandrina vale Referred To Contact Diagnoses CATY (obstructive sleep apnea) Procedures PSG Russell Moran MD Phone: tel: fax: Referral ID Status Reason Start Date Expiration Date Visits Re quested Visits Authorized [id number] Closed 03/18/2018 09/27/2019 1 1 ECTOR ASSEMBLY Reason for Visit * (Routine) - Closed Specialty Diagnoses / Procedures Referred By Contac kavin Referred To Contact Diagnoses CATY (obstructive sleep apnea) Procedures PSG Russell Moran MD Phone: tel: fax: Referral ID Status Reason Start Date Expiration Date Visits Re quested Visits Authorized [id number] Closed 03/18/2018 09/27/2019 1 1 Encounter Details Date Type Department Care Team (Latest Contact Info) Description 04/06/2018 9:45 PM INSPECTOR ASSEMBLY - 04/06/2018 11:59 PM INSPECTOR ASSEMBLY Hospital Encounter [facility] [address] [place] [phone] [place] [id number] [facility] [address] [place] [address] CATY (obstructive sleep apnea) Discharge Disposition: Discharge to home or self care Social History Tobacco Use Types Packs/Day Years Used Date Smoking Tobacco: Never Smokeless Tobacco: Never Alcohol Use Standard Drinks/Week Comments No 0 (1 standard drink = 0.6 oz pur e alcohol) Comments No Sex and Gender Information Value Date Recorded Sex Assigned at Not on file Legal Sex Female 6:56 PM INSPECTOR ASSEMBLY Gender Identity Not on file Sexual Orientation [...] 24 hours with meals 0 01/10/2012 9 amitriptyline (ELAVIL) 25 mg tablet take 1 Tablet by oral route every day at bedtime 0 0 07/01/2016 9 artificial tears (SYSTANE GEL) 0.3 % gel prn 0 0 07/01/2016 9 aspirin (ASPIRIN LOW DOSE) 81 mg tablet take 1 tablet by oral route every day 0 0 02/16/2016 1 clopidogrel (PLAVIX) 75 mg tablet TAKE ONE BY MOUTH ONE TIME PER DAY 90 5 01/29/2007 9 clopidogrel (PLAVIX) 75 mg tablet take 1 tablet by oral route every day 0 0 07/01/2016 1 clotrimazole-beta methasone (LOTRISONE) cream apply by topical route 2 times every day for 2 weeks to the affected and surrounding areas of skin in the morning and evening 15 3 07/01/2016 9 cyanocobalamin (vitamin B-12) 1,000 mcg tablet take 1 tablet by oral route every day 0 0 07/01/2016 1 cyanocobalamin, vitamin B-12, (VITAMIN B-12) 1,000 mcg tablet extended release 1 po daily 0 0 07/18/2009 9 empagliflozin (JARDIANCE) 10 mg tablet take 1 tablet by oral route every day in the morning 90 4 08/30/2015 9 empagliflozin (JARDIANCE) 10 mg tablet take 1 tablet by oral route every day in the morning 0 0 07/01/[address] (NexIUM) 40 mg capsule TAKE 1 CAPSULE DAILY 90 1 01/29/[address] (NexIUM) 40 mg capsule take 1 Capsule by oral route every day 0 0 07/01/2016 9 flecainide (TAMBOCOR) 50 mg tablet take 1 tablet by oral route every 12 hours 0 0 07/01/2016 9 furosemide (LASIX) 40 mg tabletIndications :Edema Take 1 tablet (40 mg total) by mouth daily. 10/03/2017 9 glimepiride (AMARYL) 1 mg tablet take 1.5 tablet by oral route with breakfast, 2 tablets with lunch and 2.5 tablets with dinner 180 5 08/05/2014 9 glimepiride (AMARYL) 1 mg tablet take 1.5 tablets po at breakfast, 2 tab. po at lunch, 2.5 tab with dinner 0 0 07/01/2016 9 insulin detemir (LEVEMIR FLEXTOUCH) 100 unit/mL (3 mL) insulin pen inject 10 units QHS by subcutaneous route per prescriber's instructions. Insulin dosing requires individualization . 0 Syringe 0 03/10/2015 9 latanoprost (XALATAN) 0.005 % ophthalmic solution instill 1 drop by Ophthalmic route every day into affected eye(s)in the evening 0 07/18/2009 9 latanoprost (XALATAN) 0.005 % ophthalmic solution instill 1 drop by ophthalmic route every day into affected eye(s) in the evening 0 0 02/16/2016 9 latanoprost (XALATAN) 0.005 % ophthalmic solution instill 1 drop by ophthalmic route every day into affected eye(s) in the evening 0 0 07/01/2016 1 lubiprostone (AMITIZA) 24 mcg capsuleIndication s:chronic idiopathic constipation Take 24 mcg by mouth daily with breakfast. 9 menthol-zinc oxide (CALMOSEPTINE) 0.44-20.6 % ointment PRN 0 0 07/01/2016 1 metOLazone (ZAROXOLYN) 2.5 mg tabletIndications :hypertension Take 2.5 mg by mouth once a week. 9 multivitamin (ONCE DAILY) tablet tablet take 1 tablet by oral route every day with food 0 0 07/01/2016 3 peg 400-propylene glycol (SYSTANE ULTRA) 0.4-0.3 % drops PRN 0 0 07/01/2016 9 peg 400-propylene glycol (SYSTANE) 0.4-0.3 % ophthalmic solution Administer 1 drop into both eyes as needed. 9 psyllium, aspartame, SF (METAMUCIL SF) 3.4 gram packetIndications :constipation Take 1 packet by mouth 3 (three) times a day. 1 tsp. TID 9 rosuvastatin (CRESTOR) 10 mg tablet TAKE 1 TABLET BY MOUTH 1 TIME PER DAY AT BEDTIME 90 5 03/07/2009 1 rosuvastatin (CRESTOR) 10 mg tablet take 1 tablet by oral route every day 0 0 07/01/2016 9 SITagliptin (JANUVIA) 100 mg tablet take 1 tablet by oral route every day 30 5 03/10/2015 9 SITagliptin (JANUVIA) 100 mg tablet take 1 tablet by oral route every day 0 0 07/01/2016 1 verapamil ER (VERELAN) 240 mg 24 hr capsule take 1 capsule by oral route every day 0 0 07/01/2016 9 documented as of this encounter Discharge Disposition Disposition Code Departure Means Destination Discharge to home or self care documented in this encounter Progress Notes * Nadja Leavitt RPSGT - 04/06/2018 11:59 PM CST Pt is here for a CPAP to BIPAP titration. She currently wears CPAP at 11.0 cm H20 (+ EPR=2 ?) . She wears a medium FF mask but does have problems with leak. Started pt on CPAP of 8.0 ( + EPR of 2 ). Titrated to 14.0 cm H20. She continued to have events , desats and arousals. Switched to Bilevel S and the S/T mode. Pt still had events. She then told tech that she felt like she was shivering and that she felt like she had something like indigestion inher chest . She said she didn't feel right . Tech suggested pt go to ER to get checked out just in case and pt agreed. Tech took pt to ER around 5am. Called pt's who was coming to pick herup. Also put call in to Dr. Moran. Bell Cleaner said he was beeped. Has not called back as of 7am. Used a Small Simplus FF mask. ECTOR ASSEMBLY documented in this encounter Procedure Notes * Emile Hernandez MD - 04/06/2018 12:00 AM CST The patient was referred by Dr. Moran. The patient is 5 foot 5 inches, 200 pounds, body mass index 33. The patient was observed with CPAP titration performed. The patient had at 10 cm one hour of sleep with an apnea-hypopnea index that remained elevated at 15. Oxyhemoglobin saturation fell to as low as 87% and had rapid REM onset at 41 minutes. The patient had sleep efficiency of 94%, but had apnea-hypopnea index of 15. The patient's oxyhemoglobin saturation did fall to as low as 87%. The patient was then tried on CPAP of 12 with expiratory pressure relief of -2. At that time the patient had only 1 mixed sleep apnea event. The patient had, however, marked reduction in sleep efficiency and did have hypoxemia to as low as 87%. However, she did have immediate REM stage sleep onset. The patient did not have significant periodic limb movements. The patient did have 12 isolated movements with9 arousals. The patient's [place] Sleepiness Scale of 18 out of a possible 24 consistent with severe pathologic sleepiness. Diagnoses At this time is: 1. Previously identified sleep apnea. 2. Good respiratory response to CPAP at 12 with expiratory pressure relief of -2. 3. Class 1 morbid obesity. Recommendation The patient would benefit most, I believe, from a small Simplus full face mask with CPAP pressure of 12 cm and expiratory pressure relief of -2 and be followed for her response to therapy. Encourageddaily exercise to help improve sleep efficiency in addition. The patient should be seen after 31-60days of use of the CPAP to ascertain her response as well as for download of CPAP compliance/efficacy data. Thank you for the opportunity to participate in the patient's care. It should be noted that the patient went to the emergency room in the morning because of shivering and indigestion. Job ID/VF Job ID: [id number] ECTOR ASSEMBLY documented in this encounter Plan of Treatment Scheduled Orders Name Type Priority Associated Diagnoses Orde r Schedule [facility] Routine CATY (obstructive sleep apnea) Once for 1 Occurrences starting 04/06/2018 until 04/06/2018 documented as of this encounter Visit Diagnoses Diagnosis CATY (obstructive sleep apnea) Obstructive sleep apnea (adult) (pediatric) documented in this encounter Care Teams Business Planning Director Relationship Specialty Start Date End Date Jarrell Garrison MD PCP - General 08/16/16 09/28/18 documented as of this encounter
--- OUTSIDE RECORDS SUMMARY | 2024-05-26 13:02 | XMS_ITS | Encounter Summary ---
Author Organization [facility] Healthcare Address [address] [place] [address] Care Team Providers Care Recovery Operator Helper Name Role Phone Jarrell Garrison MD Primary Care Provider [phone] Encounter Details Date Type Department Care Team (Late st Contact Info) Description 03/02/2018 3:30 PM CDT Lab [address] [address] Laz Valencia MD [address] [place] [address] Discharge Disposition: Discharge to home or self care Social History Tobacco Use Types Packs/Day Years Used Date Smoking Tobacco: Never Smokeless Tobacco: Never Alcohol Use Standard Drinks/Week Comments No 0 (1 standard drink = 0.6 oz pur e alcohol) Comments No Sex and Gender Information Value Date Recorded Sex Assigned at Not on file 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 The patient has a history of previously demonstrated obstructive sleep apnea and on this occasion is brought in for CPAP titration. The patient did fairly well with CPAP with an expiratory pressure relief of -2 using a small Simplus full face mask. The patienthas remained with severe pathologic fatigue with an [place] Sleepiness Scale score of 18 out of a possible 24. She had a trial of CPAP at 10 cm with expiratory pressure relief of 2. With 1 hour of sleep recorded, sleep efficiency of 94%, O2 sat of 87% or greater. But the patient did have 2 episodesof obstructive sleep apnea, 4 of mixed sleep apnea and 10 episodes of hypopnea during that time. This left her with an apnea-hypopnea index elevated at 15. The patient was titrated further to CPAP of12 with the expiratory pressure relief of -2 also. She slept on this for 0.96 hours with only 1 episode of mixed sleep apnea seen. However, sleep efficiency fell to 50% and oxyhemoglobin saturation fell to as low as 87%. She did have immediate REM onset. The patient did have a short REM latency while on the first pressure 10 cm as well. The patient has an [place] Sleepiness Scale score of 18 out of a possible 24. The patient was tried on a large number of pressures. It appears that she did bestfrom a respiratory point of view on CPAP of 12 cm. Higher pressures resulted in worsening of her clinical status as well as diminishing sleep. Should be noted the patient in the past had been on CPAP pressure setting of 11 cm which, while not significantly different, the patient was ill the following day and taken to the emergency room. So this test may not be totally senior patient account representative of her overall status. The patient if she is continuing her prior CPAP at 11 cm., increasing to 12 may be of somehelp . Downloading compliance and efficacy data after 31 days of use as well as [id number] interview would be of value. Clinical evaluation of the limb movements is necessary as any single night study can over or under estimate the severity of periodic limb movements. The patient should be encouraged to practice good sleep hygiene, regular hours of sleep and wake, and allowing adequate time forsleep which apparently she did not have much success with on prior testing. 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 60 - 89 mL/min/1.73m2 Mildly to moderately decreased ?45 - 59 mL/min/1.73m2 Moderately to severely decreased ??30 - 44 mL/min/1.73m2 Severely decreased ?15 - 29 mL/min/1.73m2 Kidney Failure ?< 15 ??mL/min/1.73m2 *Relative to young adult level If -Icelandic multiply value by 1.16. Estimated glomerular filtration [...] was last reviewed 2015. Blood specimen (specimen) 03/02/2018 3:28 PM CDT 03/02/2018 3:36 PM CDT Narrative MADDI HOFF ([place]) - 03/02/2018 4:30 PM CDT us Laz Valencia MD LAB BLOOD ORDERABLES Final Resu lt MADDI LUIS EDUARDO ([place]) [address] [facility] Department [place] [address] * Pro B-type natriuretic peptide (03/02/2018 3:28 PM CDT) NT-proBNP 58 <=450 pg/mL MADDI HOFF ([place]) Comment: Interpretive Comments: A. Dyspnea in Acute Care Setting All Ages: ??< 300 pg/ml, acute heart failure unlikely < 50 yrs: ??> or = 300 pg/ml and < or = 450 pg/ml, further investigation warranted ??> 450 pg/ml, acute heart failure likely 50 - 74 yrs > or = 300 pg/ml and < or = 900 pg/ml, further investigation warranted ??> 900 pg/ml, acute heart failure likely > or = 75 yrs 450 - 1800 pg/ml, further investigation warranted ??> 1800 pg/ml, acute heart failure likely B. Non-acute Setting < 75 yrs ??< 125 pg/ml, rules out heart failure ??> or = 125 pg/ml, further investigation warranted > or = 75 yrs < 450 pg/ml, rules out heart failure ??> or = 450 pg/ml, further investigation warranted Knowledge of each individual patient's NT-proBNP range may be more useful than using similar cut-points for every patient. Please note that marked elevations in NT-proBNP levels may be observed in state other than Left Ventricular Congestive Failure, including: acute coronary syndromes, right heart strain/failure (including pulmonary embolism and cor pulmonale), critial illness, renal failure, as well as advanced age. References: 1. Alison RENEE et.al. Eur Heart J. 2006:27:330-337. 2. Greg RW, Nima AM. J. AM Neetu Cardiol: Cardiovasc Imag. 2009;2: 216- 225. Interpretive Data Last Revised Date: 2018. Blood specimen (specimen) 03/02/2018 3:28 PM CDT 03/02/2018 3:36 PM CDT Narrative MADDI HOFF ([place]) - 03/02/2018 4:30 PM CDT us Laz Valencia MD LAB BLOOD ORDERABLES Final Resu lt Performing Organization Address [facility]/ZIP Co de Phone Number MADDI GOLDMAN) 1 [facility] Department [place] [address] * (ABNORMAL) Basic metabolic panel (03/02/2018 3:28 PM CDT) Sodium 141 135 - 145 mmol/L [facility] ([place]) Potassium, pl 4.0 3.3 - 4.9 mmol/L [facility] ([place]) Chloride 103 97 - 110 mmol/L [facility] ([place]) CO2 29 22 - 32 mmol/L [facility] ([place]) Anion gap 9 2 - 15 mmol/L [facility] ([place]) BUN 16 8 - 25 mg/dL [facility] ([place]) Creatinine 0.80 0.60 - 1.10 mg/dL [facility] ([place]) Glucose 102 70 - 199 mg/dL [facility] ([place]) [...] 2017. Calcium 10.6(H) 8.5 - 10.3 mg/dL [facility] ([place]) Blood specimen (specimen) 03/02/2018 3:28 PM CDT 03/02/2018 3:36 PM CDT Narrative [facility] ([place]) - 03/02/2018 4:30 PM CDT fax results to [phone] us Laz Valencia MD LAB BLOOD ORDERABLES Final Resu lt Performing Organization Address [facility]/State/ZIP Co de Phone Number MADDI HOFF ([place]) [address] [facility] Department [place] [address] documented in this encounter Visit Diagnoses Not on filedocumented in this encounter Care Teams Recovery Operator Helper Relationship Specialty Start Date End Date Jarrell Garrison MD PCP - General 08/16/16 09/28/18 documented as of this encounter
--- OUTSIDE RECORDS SUMMARY | 2024-05-26 13:02 | XMS_ITS | Encounter Summary ---
Author Organization [facility] Healthcare Address [address] [place] [address] Care Team Providers Care Machine Stone Polisher Apprentice Name Role Phone Jarrell Garrison MD Primary Care Provider [phone] Encounter Details Date Type Department Care Team (Late st Contact Info) Description 09/12/2017 4:10 PM CDT Lab [address] [address] Laz Valencia MD [address] [place] [address] Discharge Disposition: Discharge to home or self care Social History Tobacco Use Types Packs/Day Years Used Date Smoking Tobacco: Never Alcohol Use Standard Drinks/Week Comments No 0 (1 standard drink = 0.6 oz pur e alcohol) Comments Unknown Sex and Gender Information Value Date Recorded Sex Assigned at Not on file Legal Sex Female 6:56 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 Gender Identity Not on file Sexual Orientation Not on file documented as of this encounter Discharge Disposition Disposition Code Departure Means Destination Discharge to home or self care documented in this encounter Plan of Treatment Not on file documented as of this encounter Procedures Procedure Name Priority Date/Time Associated Diagnosis Comments EGFR Routine 09/12/2017 4:09 PM CDT PRO B-TYPE NATRIURETIC PEPTIDE Routine 09/12/2017 4:09 PM CDT BASIC METABOLIC PANEL Routine 09/12/2017 4:09 PM CDT DISCHARGE LABORATORY CUMULATIVE REPORT 09/12/2017 12:00 AM CDT documented in this encounter Results * Pro B-type natriuretic peptide (09/12/2017 4:09 PM CDT) NT-proBNP 87 10 - 280 pg/mL MADDI [facility]OFF ([place]) Comment: Diagnosis of Congestive Heart Failure: ??Heart Failure Unlikely: All Ages ?Less than 300 pg/ml ??Heart Failure Possible: Less than 50Y ?? 300-450 pg/ml ?50-75 Y ? 300-900 pg/ml ?75-160Y ? 300-1800 pg/ml ?Heart Failure Likely: ?? Less than 50Y ?? Greater than 450 pg/ml ?50-75 Y ? Greater than 900 pg/ml ?75-160 Y ?Greater than 1,800 pg/ml ??Renal Failure: ?All Ages ?Greater than 1,200 pg/ml Current interpretive data was last revised on 2014. Blood specimen (specimen) 09/12/2017 4:09 PM CDT 09/12/2017 4:39 PM CDT Narrative [facility]DI [facility] ([place]) - 09/12/2017 5:16 PM CDT fax results to [phone] us Laz Valencia MD LAB BLOOD ORDERABLES Final Resu lt Performing Organization Address City/[facility]/ZIP Co de Phone Number MADDI HOFF ([place]) 1 [facility] [address] * eGFR (09/12/2017 4:09 PM CDT) eGFR >60 mL/min/1.7 3 m2 MADDI HOFF ([place]) Comment: Interpretive Data Reference Interval Normal ?>/= 90 mL/min/1.73m2 Mildly decreased* ? 60 - 89 mL/min/1.73m2 Mildly to moderately decreased ?45 - 59 mL/min/1.73m2 Moderately to severely decreased ??30 - 44 mL/min/1.73m2 Severely decreased ?15 - 29 mL/min/1.73m2 Kidney Failure ?< 15 ??mL/min/1.73m2 *Relative to young adult level If -Mauritanian multiply value by 1.16. Estimated glomerular filtration [...] was last reviewed 2015. Blood specimen (specimen) 09/12/2017 4:09 PM CDT 09/12/2017 4:39 PM CDT Narrative MADDI GOLDMAN) - 09/12/2017 5:01 PM CDT Laz Valencia MD LAB BLOOD ORDERABLES Final Resu lt [facility]DI [facility]OFF ([place]) 1 [facility] [address] * (ABNORMAL) Basic metabolic panel (09/12/2017 4:09 PM CDT) Sodium 142 135 - 145 mmol/L [facility] ([place]) Potassium, pl 3.6 3.3 - 4.9 mmol/L [facility] ([place]) Chloride 100 97 - 110 mmol/L [facility] ([place]) CO2 30 22 - 32 mmol/L [facility] ([place]) BUN 17 8 - 25 mg/dL [facility] ([place]) Glucose 205(H) 70 - 199 mg/dL [facility] ([place]) [...] Current interpretive data was last revised 2017. Creatinine 0.83 0.60 - 1.10 mg/dL [facility] ([place]) Calcium 10.3 8.5 - 10.3 mg/dL [facility] ([place]) Anion gap 12 2 - 15 mmol/L [facility] Blood specimen (specimen) 09/12/2017 4:09 PM CDT 09/12/2017 4:39 PM CDT Narrative [facility] ([place]) - 09/12/2017 5:01 PM CDT fax results to [phone] us Laz Valencia MD LAB BLOOD ORDERABLES Final Resu lt MADDI HOFF ([place]) 1 [facility] Department [place] [address] * DISCHARGE LABORATORY CUMULATIVE REPORT (09/12/2017 12:00 AM CDT) Narrative 09/12/2017 12:00 AM CDT Ordered by an unspecified provider. us Historical Provider LAB BLOOD ORDERABLES Bárbara l Result documented in this encounter Visit Diagnoses Not on filedocumented in this encounter Care Teams Machine Stone Polisher Apprentice Relationship Specialty Start Date End Date Jarrell Garrison MD PCP - General 08/16/16 09/28/18 documented as of this encounter
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
--- OUTSIDE RECORDS SUMMARY | 2024-05-26 13:02 | XMS_ITS | Encounter Summary ---
Author Organization [facility] Healthcare Address [address] [place] [address] Care Team Providers Care Hide Salter Name Role Phone Jarrell Garrison MD Primary Care Provider [phone] Encounter Details Date Type Department Care Team (Late st Contact Info) Description 12/12/2015 1:58 PM CDT - 12/12/2015 11:59 PM CDT Hospital Encounter [place] [id number] [id number] Unspecified abnormal finding in specimens from other organs, systems and tissues; Hypothyroidism Social History Tobacco Use Types Packs/Day Years Used Date Smoking Tobacco: Never Alcohol Use Standard Drinks/Week Comments No 0 (1 standard drink = 0.6 oz pur e alcohol) Comments Unknown Sex and Gender Information Value Date Recorded Sex Assigned at Not on file Legal Sex Female 6:56 PM [employer] Gender Identity Not on file Sexual [...] Procedure Name Priority Date/Time Associated Diagnosis Comments PLASMA THYROXINE (T4), FREE Routine 12/12/2015 9:03 AM CDT PLASMA THYROID-STIMULATING HORMONE (TSH) Routine 12/12/2015 9:03 AM CDT DISCHARGE LABORATORY CUMULATIVE REPORT 12/12/2015 documented in this encounter Results * Plasma thyroxine (T4), free (12/12/2015 9:03 AM CDT) Free T4 0.79 0.61 - 1.12 ng/dl CDR HISTORICAL RESULTS Plasma 12/12/2015 9:03 AM CDT Narrative CDR HISTORICAL RESULTS - 12/12/2015 10:32 AM CDT Test performed at [address], [facility] [place]. Julian Payne MD LAB BLOOD ORDERABLES Final Result Performing Organization Address [facility] Co de Phone Number [facility] HISTORICAL RESULTS * (ABNORMAL) Plasma thyroid-stimulating hormone (TSH) (12/12/2015 9:03 AM CDT) TSH 5.91(H) 0.34 - 5.60 mcIUnits/ml CDR HISTORICAL RESULTS Plasma 12/12/2015 9:03 AM CDT Narrative CDR HISTORICAL RESULTS - 12/12/2015 10:46 AM CDT Test performed at [address], [address]. Julian Payne MD LAB BLOOD ORDERABLES Final Result Performing Organization Address [facility]/ZIP Co de Phone Number CDR HISTORICAL RESULTS * DISCHARGE LABORATORY CUMULATIVE REPORT (12/12/2015) Narrative 12/12/2015 Ordered by an unspecified provider. Result [facility] Historical Provider LAB BLOOD ORDERABLES Bárbara l Result documented in this encounter Visit Diagnoses Diagnosis Unspecified abnormal finding in specimens from other organs, systems and tissues Hypothyroidism Unspecified hypothyroidism documented in this encounter Care Teams Hide Salter Relationship Specialty Start Date End Date Jarrell Garrison MD PCP - General 09/26/15 08/15/16 documented as of this encounter
--- OUTSIDE RECORDS SUMMARY | 2024-05-26 13:02 | XMS_ITS | Encounter Summary ---
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 Facilities Name Role Phone Jarrell Garrison MD Primary Care Provider [phone] Reason for Visit * Reason Comments Weakness - Generalized Encounter Details Date Type Department Care Team (Latest Contact Info) Description 09/30/2017 8:04 PM CDT - 10/03/2017 7:30 PM CDT Hospital Encounter [facility] IMU [address] [place] [address] Felix Martinez, DO [address] [place] [address] Maria Del Rosario Vences MD [address] [facility] [place] [address] Ciara Lehman MD [address] [facility] [place] [address] Hypokalemia (Primary Dx); Atrial fibrillation, unspecified type (CMS/HCC); Chronic diastolic congestive heart failure (CMS/HCC); Generalized weakness Discharge Disposition: Discharge to home or self care Social History Tobacco Use Types Packs/Day Years Used Date Smoking Tobacco: Never Smokeless Tobacco: Never Alcohol Use Standard Drinks/Week Comments No 0 (1 standard drink = 0.6 oz pur e alcohol) Comments No Sex and Gender Information Value Date Recorded Sex Assigned at Not on file 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 Gender Identity Not on file Sexual Orientation Not on file documented as of this encounter Last Filed Vital Signs Vital Sign Reading Time Taken Comments Blood Pressure 135/68 10/03/2017 3:26 PM CDT Pulse 88 10/03/2017 3:26 PM CDT Temperature 35.7 ??C (96.3 ??F) 10/03/2017 3:26 PM CD T Respiratory Rate 18 10/03/2017 3:26 PM CDT Oxygen Saturation 96% 10/03/2017 3:26 PM CDT Inhaled Oxygen Concentration - - Weight 93.3 kg (205 lb 11 oz) 09/30/2017 11:09 P M CDT Height 165.1 cm (5' 5 ) 09/30/2017 11:09 PM CDT Body Mass Index 34.23 09/30/2017 11:09 PM CDT documented in this encounter Discharge Summaries * Ciara Lehman MD - 10/03/2017 5:53 PM CDT Inpatient Discharge Summary BRIEF OVERVIEW Admitting Provider: Maria Del Rosario Vences MD Discharge Provider: Ciara Lehman MD Primary Care Physician at Discharge: Jarrell Garrison MD [phone] Admission Date: 09/30/2017 Discharge Date: 10/03/2017 Primary Discharge Diagnosis: Hypokalemia: Likely secondary to diuretics Secondary Discharge Diagnosis: Acute on chronic diastolic congestive heart failure Diabetes mellitus type 2 Paroxysmal atrial fibrillation Recently diagnosed breast cancer DETAILS OF HOSPITAL STAY Presenting Problem/History of Present Illness: Patient is a 76 y.o. female with a PMH of recently diagnosed breast cancer in August 2017, paroxysmal AFib, hypertension, lymphedema, diabetes with a chief complaint of generalized weakness with nausea and vomiting. For complete details please refer to the history and physical by Dr. Vences on 10/01/2017. Hospital Course: 1. Hypokalemia: Likely secondary to diuretics. Patient had been using her Lasix every day. Replacing with IV and p.o. potassium. Potassium on the day of discharge is 3.2. She received additional 40 mEq before discharge. Will also increase her daily potassium from 40 mEq daily to 40 mEq twice a day.Will get repeat potassium in 3 days on 10/06/2017. Magnesium level normal. 2. Acute on chronic diastolic congestive heart failure: IV Lasix 40 mg x1. Continue daily Lasix. Echocardiogram showed ejection fraction of 70-75%. Serial troponin negative. 3. Diabetes mellitus type 2: Blood sugar fairly controlled. Will continue her home dose of Lantus 10 units daily at discharge along with oral hypoglycemic. 4. Paroxysmal atrial fibrillation: Heart rate is well controlled. Continue verapamil, flecainide. 5. Recently diagnosed breast cancer: Status post surgery. Currently on anastrozole. Test Results Pending at Discharge: None Operative Procedures Performed: None Other Procedures: Chest x-ray Pertinent Test Results: None Discharge Details Physical Exam at Discharge: Discharge Condition: good Pulse: 88 Resp: 18 BP: 135/68 Temp: (!) 35.7 ??C (96.3 ??F) Weight: 93.3 kg (205 lb 11 oz) BP 135/68 Pulse 88 Temp (!) 35.7 ??C (96.3 ??F) Resp 18 Ht 165.1 cm (5' 5 ) Wt 93.3 kg (205 lb 11 oz) SpO2 96% ? No BMI 34.23 kg/m?? Pertinent Exam Findings at Discharge: General appearance: Alert, oriented x3, in no distress. HEENT: Atraumatic, normocephalic. Pupils equal and reactive to light. Extraocular movements intact.Moist mucous membrane. CVS: S1, S2 normal Respiration: Clear to auscultation bilaterally Abdomen: Soft, nontender, nondistended, bowel sounds normoactive Extremities: No pedal edema, no calf tenderness Neuro: No focal deficits Psychiatric: Normal mood and affect Labs at discharge: Recent Results (from the past 24 hour(s)) Glucose POC Collection Time: 10/02/17 9:07 PM Result Value Ref Range Glucose, POC, bld 205 (H) 71 - 98 mg/dL Glucose POC Collection Time: 10/03/17 2:31 AM Result Value Ref Range Glucose, POC, bld 128 (H) 71 - 98 mg/dL Basic metabolic panel Collection Time: 10/03/17 7:16 AM Result Value Ref Range Sodium 141 135 - 145 mmol/L Potassium 3.1 (L) 3.3 - 4.9 mmol/L Chloride 101 97 - 110 mmol/L CO2 28 22 - 32 mmol/L BUN 17 8 - 25 mg/dL Glucose 119 70 - 199 mg/dL Creatinine 0.69 0.60 - 1.10 mg/dL Calcium 10.2 8.5 - 10.3 mg/dL Anion Gap 12 2 - 15 mmol/L Magnesium Collection Time: 10/03/17 7:16 AM Result Value Ref Range Magnesium 2.1 1.6 - 2.4 mg/dL Phosphorus Collection Time: 10/03/17 7:16 AM Result Value Ref Range Phosphorus, pl 3.7 2.3 - 4.5 mg/dL eGFR Collection Time: 10/03/17 7:16 AM Result Value Ref Range GFR >60 mL/min/1.73 m2 Glucose POC Collection Time: 10/03/17 7:57 AM Result Value Ref Range Glucose, POC, bld 111 (H) 71 - 98 mg/dL Glucose POC Collection Time: 10/03/17 11:50 AM Result Value Ref Range Glucose, POC, bld 151 (H) 71 - 98 mg/dL Potassium Collection Time: 10/03/17 2:43 PM Result Value Ref Range Potassium 3.2 (L) 3.3 - 4.9 mmol/L Glucose POC Collection Time: 10/03/17 4:52 PM Result Value Ref Range Glucose, POC, bld 137 (H) 71 - 98 mg/dL Discharge Disposition: Discharged to home with home health Full Code Discharge Instructions: 1. Monitor for chest pain or shortness of breath or palpitation 2. Monitor for increasing weakness 3. Get blood work done on Friday10/06/2017. 4. Weight daily and notify MD if weight gain of more than 2 lb in 1 day or more than 5 lb in 1 week Other Instructions Ambulatory referral to Home Health Service Line: Home Health Primary disciplines requested: [facility] Home Health Services: Strengthening Exercises Therapy to Eval/ Treat Strengenthing/ Balance Physician to follow patient's care (the person listed here will be responsible for signing ongoing orders): PCP Requested Start of Care Date: Within 2 - 3 Days I attest that I or another qualified licensed provider saw the patient 90 days prior to or 30 days post admission and this face to face encounter meets the necessary Home Health requirements. The face to face encounter occurred on (date): 10/03/2017 The encounter with the patient was in whole, or in part, for the following medical condition, whichis the primary reason for home health care. (List medical condition): Congestive heart failure, hypokalemia I certify that, based on my findings, the following services are medically necessary skilled home health services: Strengthening Exercises Therapy to Eval/ Treat Strengenthing/ Balance Clinical findings that support the need for home care: Medical condition requiring skilled assessment/eduaction Frequent falls requiring safety eval/therapy I certify that my clinical findings support patient's homebound status. Homebound criteria met because: Poor endurance Abnormal gait/unsteady balance resulting in fall risk Discharge Medications: Your medication list START taking these medications potassium chloride ER 20 mEq CR tablet Commonly known as: KLOR-CON,K-DUR Take 2 tablets (40 mEq total) by mouth 2 (two) times a day for 7 days. Replaces: potassium chloride ER 10 mEq CR tablet CHANGE how you take these medications ASPIRIN LOW DOSE 81 mg tablet Generic drug: aspirin take 1 tablet by oral route every day What changed: Another medication with the same name was removed. Continue taking this medication, and follow the directions you see here. LEVEMIR FLEXTOUCH U-100 INSULN 100 unit/mL (3 mL) insulin pen Generic drug: insulin detemir U-100 inject 10 units QHS by subcutaneous route per prescriber's instructions. Insulin dosing requires individualization. What changed: how much to take when to take this Another medication with the same name was removed. Continue taking this medication, and follow the directions you see here. peg 400-propylene glycol 0.4-0.3 % ophthalmic solution Commonly known as: SYSTANE What changed: Another medication with the same name was changed. Make sure you understand how and when to take each. SYSTANE ULTRA 0.4-0.3 % ophthalmic solution Generic drug: peg 400-propylene glycol PRN What changed: how much to take how to take this when to take this reasons to take this CONTINUE taking these medications amitriptyline 25 mg tablet Commonly known as: ELAVIL take 1 tablet (25MG) by ORAL route every 24 hours with meals amitriptyline 25 mg tablet Commonly known as: ELAVIL take 1 Tablet by oral route every day at bedtime anastrozole 1 mg tablet Commonly known as: ARIMIDEX CALMOSEPTINE 0.44-20.6 % ointment Generic drug: menthol-zinc oxide PRN clotrimazole-betamethasone cream Commonly known as: LOTRISONE apply by topical route 2 times every day for 2 weeks to the affected and surrounding areas of skin in the morning and evening CRESTOR 10 mg tablet Generic drug: rosuvastatin TAKE 1 TABLET BY MOUTH 1 TIME PER DAY AT BEDTIME CRESTOR 10 mg tablet Generic drug: rosuvastatin take 1 tablet by oral route every day flecainide 50 mg tablet Commonly known as: TAMBOCOR take 1 tablet by oral route every 12 hours furosemide 40 mg tablet Commonly known as: LASIX Take 1 tablet (40 mg total) by mouth daily. glimepiride 1 mg tablet Commonly known as: AMARYL take 1.5 tablet by oral route with breakfast, 2 tablets with lunch and 2.5 tablets with dinner glimepiride 1 mg tablet Commonly known as: AMARYL take 1.5 tablets po at breakfast, 2 tab. po at lunch, 2.5 tab with dinner JANUVIA 100 mg tablet Generic drug: SITagliptin take 1 tablet by oral route every day JANUVIA 100 mg tablet Generic drug: SITagliptin take 1 tablet by oral route every day JARDIANCE 10 mg tablet Generic drug: empagliflozin take 1 tablet by oral route every day in the morning JARDIANCE 10 mg tablet Generic drug: empagliflozin take 1 tablet by oral route every day in the morning lubiprostone 24 mcg capsule Commonly known as: AMITIZA metOLazone 2.5 mg tablet Commonly known as: ZAROXOLYN NexIUM 40 mg capsule Generic drug: esomeprazole DR TAKE 1 CAPSULE DAILY NexIUM 40 mg capsule Generic drug: esomeprazole DR take 1 Capsule by oral route every day ONCE DAILY tablet Generic drug: multivitamin take 1 tablet by oral route every day with food PLAVIX 75 mg tablet Generic drug: clopidogrel TAKE ONE BY MOUTH ONE TIME PER DAY PLAVIX 75 mg tablet Generic drug: clopidogrel [...] 1 capsule by oral route every day VITAMIN B-12 1,000 mcg tablet extended release Generic drug: cyanocobalamin (vitamin B-12) 1 po daily vitamin B-12 1,000 mcg tablet Generic drug: cyanocobalamin take 1 tablet by oral route every day XALATAN 0.005 % ophthalmic solution Generic drug: latanoprost instill 1 drop by Ophthalmic route every day into affected eye(s)in the evening latanoprost 0.005 % ophthalmic solution Commonly known as: XALATAN instill 1 drop by ophthalmic route every day into affected eye(s) in the evening latanoprost 0.005 % ophthalmic solution Commonly known as: XALATAN instill 1 drop by ophthalmic route every day into affected eye(s) in the evening STOP taking these medications potassium chloride ER 10 mEq CR tablet Commonly known as: KLOR-RICARDO,K-DUR Replaced by: potassium chloride ER 20 mEq CR tablet Outpatient Follow-Up: 1. Follow up with PCP in 1 week Referrals and Follow-ups to Schedule Basic metabolic panel October 06, 2017 Please fax results to primary care physician Dr. Jarrell Garrison Time Spent on Discharge: 35 minutes documented in this encounter Discharge Instructions * Discharge Instructions* Ciara Lehman MD - 10/03/2017 5:53 PM CDT 1. Monitor for chest pain or shortness of breath or palpitation 2. Monitor for increasing weakness 3. Get blood work done on Friday10/06/2017. 4. Weight daily and notify MD if weight gain of more than 2 lb in 1 day or more than 5 lb in 1 week * Appointments* Trina Benitez RN - 10/02/2017 11:[address] Garrison- Saturday October 14, 2017 1:00pm. Address: [address] [id number] * Attachments The following attachments cannot be sent through Care Everywhere. * Potassium Chloride (By mouth) (Ukrainian) documented in this encounter Medications at Time of Discharge anastrozole (ARIMIDEX) 1 mg tabletIndications :prevention of breast cancer in high risk women Take 1 tablet (1 mg total) by mouth daily potassium chloride ER (KLOR-CON,K-DUR) 20 mEq CR tablet Take 2 tablets (40 mEq total) by mouth 2 (two) times a day for 7 days. 28 tablet 10/03/2017 8 albuterol HFA (PROAIR HFA) 90 mcg/actuation inhaler [...] Start Date End Date potassium chloride ER (KLOR-CON,K-DUR) 20 mEq CR tablet Take 2 tablets (40 mEq total) by mouth 2 (two) times a day for 7 days. 28 tablet 10/03/2017 8 furosemide (LASIX) 40 mg tabletIndications: Edema Take 1 tablet (40 mg total) by mouth daily. 10/03/2017 9 documented in this encounter Discharge Disposition Disposition Code Departure Means Destination Discharge to home or self care documented in this encounter Progress Notes * Ciara Lehman MD - 10/02/2017 4:23 PM CDT Hospitalist Daily Progress SUBJECTIVE: Chief Complaint Patient presents with ??? Weakness - Generalized Interval History: Feels fine. Denies any weakness. Denies any chest pain or shortness of breath or palpitation OBJECTIVE: Vitals: 24hr Min/Max: Temp Min: 36.1 ??C (97 ??F) Max: 36.9 ??C (98.5 ??F) Pulse Min: 66 Max: 83 BP Min: 123/55 Max: 147/58 Resp Min: 20 Max: 20 SpO2 Min: 92 % Max: 98 % Most Recent : Vitals: 10/01/17 2329 10/02/17 0319 10/02/17 0811 10/02/17 1106 BP: 142/54 147/58 123/55 125/59 BP Location: Right arm Right arm Right arm Right arm Patient Position: Lying Lying Lying Sitting Pulse: 74 73 73 83 Resp: 20 20 20 20 Temp: 36.9 ??C (98.4 ??F) 36.7 ??C (98.1 ??F) 36.1 ??C (97 ??F) 36.4 ??C (97.5 ??F) TempSrc: Tympanic Tympanic Temporal Temporal SpO2: 98% 93% 94% 92% Weight: Height: I/O last 2 completed shifts: In: 2020 [P.O.:2020] Out: 2200 [Urine:2200] I/O this shift: In: 240 [P.O.:240] Out: 1100 [Urine:1100] Physical Exam General appearance: Alert, oriented x3, in no distress. HEENT: Atraumatic, normocephalic. Pupils equal and reactive to light. Extraocular movements intact.Moist mucous membrane. CVS: S1, S2 normal Respiration: Occasional bibasilar rhonchi. Abdomen: Soft, nontender, nondistended, bowel sounds normoactive Extremities: No pedal edema, no calf tenderness Neuro: No focal deficits Psychiatric: Normal mood and affect Lab/Radiology/Diagnostic Review: Recent Results (from the past 24 hour(s)) Glucose POC Collection Time: 10/01/17 4:58 PM Result Value Ref Range Glucose, POC, bld 135 (H) 71 - 98 mg/dL Glucose POC Collection Time: 10/01/17 9:19 PM Result Value Ref Range Glucose, POC, bld 153 (H) 71 - 98 mg/dL Troponin T Collection Time: 10/02/17 12:10 AM Result Value Ref Range Troponin T <0.01 0.00 - 0.06 ng/mL Glucose POC Collection Time: 10/02/17 2:02 AM Result Value Ref Range Glucose, POC, bld 191 (H) 71 - 98 mg/dL CBC with auto differential Collection Time: 10/02/17 4:14 AM Result Value Ref Range WBC 7.6 3.8 - 9.9 K/cumm RBC 4.81 3.90 - 5.20 M/cumm Hgb 11.2 (L) 11.9 - 15.5 g/dL Hct 36.6 35.6 - 45.5 % MCV 76.1 (L) 81.3 - 96.4 fL MCH 23.3 (L) 27.1 - 33.3 pg MCHC 30.6 (L) 32.3 - 35.7 g/dL RDW CV 20.5 (H) 11.1 - 14.9 % RDW SD 54.6 (H) 35.7 - 48.1 fL Plt 357 150 - 400 K/cumm MPV 10.3 9.1 - 12.3 fL NRBC Abs 0.00 0.00 - 0.01 K/cumm Basic metabolic panel Collection Time: 10/02/17 4:14 AM Result Value Ref Range Sodium 145 135 - 145 mmol/L Potassium 2.9 (Critical) 3.3 - 4.9 mmol/L Chloride 104 97 - 110 mmol/L CO2 32 22 - 32 mmol/L BUN 18 8 - 25 mg/dL Glucose 152 70 - 199 mg/dL Creatinine 0.90 0.60 - 1.10 mg/dL Calcium 9.8 8.5 - 10.3 mg/dL Anion Gap 9 2 - 15 mmol/L Magnesium Collection Time: 10/02/17 4:14 AM Result Value Ref Range Magnesium 2.2 1.6 - 2.4 mg/dL Phosphorus Collection Time: 10/02/17 4:14 AM Result Value Ref Range Phosphorus, pl 3.4 2.3 - 4.5 mg/dL Differential, auto Collection Time: 10/02/17 4:14 AM Result Value Ref Range Neutrophil absolute 5.0 1.7 - 6.5 K/cumm Immature granulocyte absolute 0.0 0.0 - 0.1 K/cumm Lymphocytes absolute 1.5 0.8 - 3.3 K/cumm Monocyte absolute 0.8 0.2 - 0.8 K/cumm Eosinophils absolute 0.3 0.0 - 0.5 K/cumm Basophils, abs 0.0 0.0 - 0.1 K/cumm Neutrophils 65.2 % Immature granulocytes 0.3 % Lymphocytes 19.8 % Monocytes 10.5 % Eosinophils 3.5 % Basophils 0.7 % eGFR Collection Time: 10/02/17 4:14 AM Result Value Ref Range GFR >60 mL/min/1.73 m2 Glucose POC Collection Time: 10/02/17 8:10 AM Result Value Ref Range Glucose, POC, bld 126 (H) 71 - 98 mg/dL Glucose POC Collection Time: 10/02/17 11:08 AM Result Value Ref Range Glucose, POC, bld 233 (H) 71 - 98 mg/dL Potassium Collection Time: 10/02/17 2:57 PM Result Value Ref Range Potassium 3.3 3.3 - 4.9 mmol/L ASSESSMENT/PLAN: 1. Hypokalemia: Likely secondary to diuretics. Patient had been using her Lasix every day. Replacing with IV and p.o. potassium. Increase daily potassium. Magnesium level normal. BMP in the a.m. 2. Acute on chronic diastolic congestive heart failure: IV Lasix 40 mg x1. Continue daily Lasix. Update echocardiogram. Serial troponin negative 3. Diabetes mellitus type 2: Blood sugar high. Increase Lantus to 8 units daily. Continue sliding scale insulin. 4. Paroxysmal atrial fibrillation: Heart rate is well controlled. Continue verapamil, flecainide. 5. Recently diagnosed breast cancer: Status post surgery. Currently on anastrozole. 6. Disposition: Likely discharge home tomorrow after echocardiogram, if potassium stable * Noah Foley, [facility] - 10/02/2017 6:45 AM CDT Electrolyte monitoring performed by pharmacy on labs from 10/02/2017 AM labs (date & time), Na+=145 K+=2.9 Mg+=2.2 Phos=3.4 Give 40 meq of potassium chloride PO per electrolyte replacement protocol for potassium level * Emile Santiago [facility] - 10/01/2017 3:56 PM CDT An order to initiate electrolyte repletion by pharmacy has been received from Dr. Lehman . IV (or PO repletion for potassium, when tolerating oral) will be ordered by the pharmacist when levels fall below the desired range as follows: ?? If potassium level is 3.5 or less, give 40mEq potassium chloride IVPB, or oral (per NG tube, when applicable). ?? If magnesium level is 1.7 or less, give 2 grams magnesium sulfate IVPB over 2 hours. ?? If phosphorus level is 2.2 or less, and potassium and sodium are in normal range, give sodium phosphate 30 millimols IVPB. ?? If phosphorous level is 2.2 or less, and potassium replacement is also needed, give potassium phosphate 30 millimols IVPB. ?? If phosphorous level is 2.2 or less, and potassium is in normal range, and sodium is 145 or greater, give potassium phosphate 20 millimols IVPB. * Ciara Lehman MD - 10/01/2017 3:51 PM CDT Hospitalist Daily Progress SUBJECTIVE: Chief Complaint Patient presents with ??? Weakness - Generalized Interval History: Positive for generalized weakness. Denies any chest pain or shortness of breath. Denies any palpitation OBJECTIVE: Vitals: 24hr Min/Max: Temp Min: 36.4 ??C (97.5 ??F) Max: 36.8 ??C (98.2 ??F) Pulse Min: 54 Max: 89 BP Min: 112/53 Max: 147/79 Resp Min: 15 Max: 21 SpO2 Min: 90 % Max: 98 % Most Recent : Vitals: 10/01/17 0600 10/01/17 0751 10/01/17 1159 10/01/17 1500 BP: 116/49 126/51 120/45 BP Location: Right arm Right arm Right arm Patient Position: Lying Lying Sitting Pulse: 76 74 70 54 Resp: Temp: 36.5 ??C (97.7 ??F) 36.4 ??C (97.6 ??F) 36.6 ??C (97.9 ??F) TempSrc: Temporal Temporal Temporal SpO2: 90% 92% 95% Weight: Height: I/O last 2 completed shifts: In: 300 [P.O.:300] Out: 1000 [Urine:1000] I/O this shift: In: 1140 [P.O.:1140] Out: 1100 [Urine:1100] Physical Exam General appearance: Alert, oriented, in no distress. HEENT: Atraumatic, normocephalic. Pupils equal and reactive to light. Extraocular movements intact.Moist mucous membrane. CVS: S1, S2 normal Respiration: Occasional bibasilar rhonchi. Abdomen: Soft, nontender, nondistended, bowel sounds normoactive Extremities: No pedal edema, no calf tenderness Neuro: No focal deficits Psychiatric: Normal mood and affect Lab/Radiology/Diagnostic Review: Recent Results (from the past 24 hour(s)) Magnesium Collection Time: 09/30/17 8:09 PM Result Value Ref Range Magnesium 2.3 1.6 - 2.4 mg/dL CBC with auto differential Collection Time: 09/30/17 8:24 PM Result Value Ref Range WBC 15.1 (H) 3.8 - 9.9 K/cumm RBC 5.18 3.90 - 5.20 M/cumm Hgb 11.9 11.9 - 15.5 g/dL Hct 39.5 35.6 - 45.5 % MCV 76.3 (L) 81.3 - 96.4 fL MCH 23.0 (L) 27.1 - 33.3 pg MCHC 30.1 (L) 32.3 - 35.7 g/dL RDW CV 20.8 (H) 11.1 - 14.9 % RDW SD 55.2 (H) 35.7 - 48.1 fL Plt 384 150 - 400 K/cumm MPV 10.3 9.1 - 12.3 fL NRBC Abs 0.00 0.00 - 0.01 K/cumm Comprehensive metabolic panel Collection Time: 09/30/17 8:24 PM Result Value Ref Range Sodium 138 135 - 145 mmol/L Potassium 2.7 (Critical) 3.3 - 4.9 mmol/L CO2 26 22 - 32 mmol/L BUN 18 8 - 25 mg/dL Glucose 127 70 - 199 mg/dL Creatinine 0.84 0.60 - 1.10 mg/dL Calcium 9.9 8.5 - 10.3 mg/dL Chloride 97 97 - 110 mmol/L Albumin 4.1 3.5 - 5.0 g/dL AST 14 10 - 45 Units/L ALT 15 7 - 45 Units/L Alk phos 93 40 - 130 Units/L Bilirubin <0.2 0.1 - 1.2 mg/dL Protein, pl 6.6 6.5 - 8.5 g/dL Anion Gap 15 2 - 15 mmol/L Pro B-type natriuretic peptide Collection Time: 09/30/17 8:24 PM Result Value Ref Range Pro BNP 82 10 - 280 pg/mL Protime-INR Collection Time: 09/30/17 8:24 PM Result Value Ref Range PT 11.4 9.5 - 13.0 sec INR 1.01 0.90 - 1.20 aPTT Collection Time: 09/30/17 8:24 PM Result Value Ref Range APTT 27.4 25.0 - 37.0 sec Troponin T Collection Time: 09/30/17 8:24 PM Result Value Ref Range Troponin T <0.01 0.00 - 0.06 ng/mL Differential, auto Collection Time: 09/30/17 8:24 PM Result Value Ref Range Neutrophil absolute 12.8 (H) 1.7 - 6.5 K/cumm Immature granulocyte absolute 0.1 0.0 - 0.1 K/cumm Lymphocytes absolute 0.7 (L) 0.8 - 3.3 K/cumm Monocyte absolute 1.3 (H) 0.2 - 0.8 K/cumm Eosinophils absolute 0.1 0.0 - 0.5 K/cumm Basophils, abs 0.0 0.0 - 0.1 K/cumm Neutrophils 85.1 % Immature granulocytes 0.5 % Lymphocytes 4.8 % Monocytes 8.9 % Eosinophils 0.4 % Basophils 0.3 % eGFR Collection Time: 09/30/17 8:24 PM Result Value Ref Range GFR >60 mL/min/1.73 m2 ECG 12 lead Collection Time: 09/30/17 8:35 PM Result Value Ref Range Patient age 76 years Interpretation Text SINUS RHYTHMMARKED LEFT AXIS DEVIATIONMODERATE INTRAVENTRICULAR CONDUCTION DELAYMODERATE ST DEPRESSIONABNORMAL ECGPREVIOUS TRACIN02/12/2016 09.18No significant change compared to prior ECG Ventricular Rate EKG/Min 81 /min P Wave Duration 115 ms QRS-Interval (MSEC) 126 ms GA-Interval (MSEC) 127 ms QT Interval 432 ms QTc 468 ms QTC Interval ms P [place] 193 deg QRS [place] -36 deg T [place] 67 deg Urinalysis reflex to microscopic and culture Urine, clean voided Collection Time: 09/30/17 9:58 PM Result Value Ref Range Color, ur Yellow Yellow Clarity, ur Clear Clear Specific gravity, ur 1.019 1.010 - 1.025 pH, urine 6.5 Protein, ur ql Negative Negative Glucose, ur ql 3+ (A) Negative Ketones, ur Trace Negative Bilirubin, ur Negative Negative Blood, ur Negative Negative Urobilinogen, ur 0.2 mg/dL Nitrite, ur Negative Negative Leukocyte esterase, ur Negative Negative Basic metabolic panel Collection Time: 10/01/17 12:20 AM Result Value Ref Range Sodium 143 135 - 145 mmol/L Potassium 3.5 3.3 - 4.9 mmol/L Chloride 101 97 - 110 mmol/L CO2 27 22 - 32 mmol/L BUN 19 8 - 25 mg/dL Glucose 171 70 - 199 mg/dL Creatinine 0.78 0.60 - 1.10 mg/dL Calcium 9.9 8.5 - 10.3 mg/dL Anion Gap 15 2 - 15 mmol/L eGFR Collection Time: 10/01/17 12:20 AM Result Value Ref Range GFR >60 mL/min/1.73 m2 Glucose POC Collection Time: 10/01/17 7:50 AM Result Value Ref Range Glucose, POC, bld 117 (H) 71 - 98 mg/dL Glucose POC Collection Time: 10/01/17 12:01 PM Result Value Ref Range Glucose, POC, bld 158 (H) 71 - 98 mg/dL Basic metabolic panel Collection Time: 10/01/17 2:28 PM Result Value Ref Range Sodium 140 135 - 145 mmol/L Potassium 3.2 (L) 3.3 - 4.9 mmol/L Chloride 98 97 - 110 mmol/L CO2 31 22 - 32 mmol/L BUN 18 8 - 25 mg/dL Glucose 180 70 - 199 mg/dL Creatinine 0.90 0.60 - 1.10 mg/dL Calcium 9.9 8.5 - 10.3 mg/dL Anion Gap 11 2 - 15 mmol/L eGFR Collection Time: 10/01/17 2:28 PM Result Value Ref Range GFR >60 mL/min/1.73 m2 ASSESSMENT/PLAN: 1. Hypokalemia: Likely secondary to diuretics. Patient had been using her Lasix every day. Replacing with IV and p.o. potassium. Will start daily potassium. Magnesium level normal. 2. Acute on chronic diastolic congestive heart failure: IV Lasix 40 mg x1. Will resume p.o. potassium 40 mg daily. Update echocardiogram. For set of troponin negative. Obtain serial troponin. 3. Diabetes mellitus type 2: Blood sugar fairly controlled. Continue Lantus, sliding scale insulin. 4. Paroxysmal atrial fibrillation: Heart rate is well controlled. Continue verapamil, flecainide. 5. Recently diagnosed breast cancer: Status post surgery. Currently on anastrozole. 6. Disposition: Likely discharge home tomorrow * Vi Nesbitt, RESEARCH SOIL SCIENTIST - 10/01/2017 3:28 PM CDT DC PLANNING: ALEX opened up case after receiving referral for dc planning assistance. ALEX met with pt and pt's spouse at bedside. Both were very pleasant and easily engaged with SW. They both plan on pt returning home as she is at her baseline with her functioning. Pt's spouse, Samara, is home 09/12 and provides ptwith assistance as she needs. Pt uses a wheeled walker. She also has a motorized scooter that is connected to their car. Both pt and samara receive meals on wheels. Pt also has groceries delivered totheir home from the store. They did not express any needs/concerns. Pt has 3 daughters that live locally that are quite involved. ALEX provided pt with homemaker service information for future reference. ALEX also provided them a patient choice list. They stated they would be okay with [facility], but they do not feel they need it. CABELLO letter and booklet was also provided. No barriers to dc noted at this time. Anticipated for pt to return home with spouse when medically appropriate. If this is the last note, consider it the dc summary. 10/01/17 1519 Referral Data Referral Source Physician Referral Name DC PLANNING Referral Reason Discharge Planning County Information [facility] Patient Information Primary Caregiver Spouse Accompanied by/Relationship Spouse Samara Support System Spouse/Significant Other Support system contact info (name, phone, availablity) Samara [phone] Legal Information Advance Directive Patient has advance directive, copy not in chart Advance Directive not in Chart Copy requested from family Prior Level of Functioning Durable Medical Equipment Cane (single prong);Walker (wheeled);Wheelchair;Wheelchair Ramp;Crutches;Other (Comment) (motorized scooter with car) Living Arrangement House Ambulation Needs Assistance (Comment) Bed/Chair transfers Needs assistance (Comment) Bathing/Grooming Needs assistance (Comment) Grocery Shopping Needs Assistance (Comment) Meal preparation Needs Assistance (Comment) Housework Needs Assistance (Comment) Behavior Oriented Income Information Income Source [employer]/Pension Referral To Community Resources Meals on Wheels;Homemaker services Potential Discharge Needs Discharge Potential Return home with family care/HHC Anticipated discharge level of care Return Home Dialysis No Psychiatric services No Communications CABELLO letter given? 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 Yes documented in this encounter H&P Notes * Maria Del Rosario Vences MD - 10/01/2017 5:44 AM CDT General Medicine History and Physical Date of Encounter 10/01/2017 PCP: Jarrell Garrison SUBJECTIVE Patient is a 76 y.o. female with a PMH of recently diagnosed breast cancer in August 2017, paroxysmal AFib, hypertension, lymphedema, diabetes with a chief complaint of generalized weakness with nausea and vomiting. 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 She states she felt so weak she was unable to walk. States it felt exactly like her AFib noe had 2 years ago. Denied any palpitations, chest pain or shortness of breath. States she was also lightheaded and dizzy for few hours prior to arrival. Patient came to the ED for further evaluation. In the ED patient was noted to have potassium of 2.7. EKG showed sinus rhythm. Patient was given potassium replacement and admitted for further monitoring. Currently patient states she is feeling much better. Of note patient was recently diagnosed with breast cancer in August 2017. She was started on anastrozole. Patient also has a history of spastic paraplegia and has recurrent falls from it. She denies any head trauma or LOC with these events. She ambulates with a walker. Past Medical History: Diagnosis Date ??? Anemia [...] BILATERAL SALPINGOOPHORECTOMY 1980 Hysterectomy, total abdominal, BSO Prescriptions Prior to Admission Medication Sig Dispense Refill Last Dose ??? albuterol HFA (PROAIR HFA) 90 mcg/actuation inhaler inhale 2 puff by inhalation route every 4 -6 hours as needed 0 Inhaler 0 Unknown at Unknown time ??? amitriptyline (ELAVIL) 25 mg tablet take 1 Tablet by oral route every day at bedtime 0 0 Unknown at Unknown time ??? anastrozole (ARIMIDEX) 1 mg tablet Take 1 mg by mouth nightly. Unknown at Unknown time ??? artificial tears (SYSTANE GEL) 0.3 % gel prn 0 0 Unknown at Unknown time ??? aspirin (ASPIR-81) 81 mg tablet take 1 tablet by oral route every day 0 0 Unknown at Unknown time ??? clopidogrel (PLAVIX) 75 mg tablet take 1 tablet by oral route every day 0 0 Unknown at Unknown time ??? cyanocobalamin, vitamin B-12, (VITAMIN B-12) 1,000 mcg tablet extended release 1 po daily 0 0 Unknown at Unknown time ??? empagliflozin (JARDIANCE) 10 mg tablet take 1 tablet by oral route every day in the morning 0 0Unknown at Unknown time ??? esomeprazole DR (NexIUM) 40 mg capsule take 1 Capsule by oral route every day 0 0 Unknown at Unknown time ??? furosemide (LASIX) 40 mg tablet TAKE 1 TABLET BY MOUTH EVERY DAY NEEDED 90 5 Unknown at Unknown time ??? glimepiride (AMARYL) 1 mg tablet take 1.5 tablet by oral route with breakfast, 2 tablets with lunch and 2.5 tablets with dinner 180 5 Unknown at Unknown time ??? glimepiride (AMARYL) 1 mg tablet take 1.5 tablets po at breakfast, 2 tab. po at lunch, 2.5 tab with dinner 0 0 Unknown at Unknown time ??? insulin detemir (LEVEMIR FLEXTOUCH) 100 unit/mL (3 mL) insulin pen inject 10 units QHS by subcutaneous route per prescriber's instructions. Insulin dosing requires individualization. (Patient taking differently: 6 Units nightly. ) 0 Syringe 0 Unknown at Unknown time ??? latanoprost (XALATAN) 0.005 % ophthalmic solution instill 1 drop by ophthalmic route every day into affected eye(s) in the evening 0 0 ??? lubiprostone (AMITIZA) 24 mcg capsule Take 24 mcg by mouth daily with breakfast. Unknown at Unknown time ??? menthol-zinc oxide (CALMOSEPTINE) 0.44-20.6 % ointment PRN 0 0 Unknown at Unknown time ??? metOLazone (ZAROXOLYN) 2.5 mg tablet Take 2.5 mg by mouth once a week. Unknown at Unknown time ??? multivitamin (ONCE DAILY) tablet tablet take 1 tablet by oral route every day with food 0 0 Unknown at Unknown time ??? peg 400-propylene glycol (SYSTANE) 0.4-0.3 % ophthalmic solution Administer 1 drop into both eyes as needed. Unknown at Unknown time ??? potassium chloride ER (potassium chloride ER) 10 mEq CR tablet take 4 Capsule by oral route every day with food 0 0 Unknown at Unknown time ??? psyllium, aspartame, SF (METAMUCIL SF) 3.4 gram packet Take 1 packet by mouth 3 (three) times aday. 1 tsp. TID Unknown at Unknown time ??? rosuvastatin (CRESTOR) 10 mg tablet TAKE 1 TABLET BY MOUTH 1 TIME PER DAY AT BEDTIME 90 5 Unknown at Unknown time ??? SITagliptin (JANUVIA) 100 mg tablet take 1 tablet by oral route every day 0 0 Unknown at Unknown time ??? verapamil ER (VERELAN) 240 mg 24 hr capsule take 1 capsule by oral route every day 0 0 Unknown at Unknown time ??? amitriptyline (ELAVIL) 25 mg tablet take 1 tablet (25MG) by ORAL route every 24 hours with meals 0 ??? aspirin (ASPIRIN LOW DOSE) 81 mg tablet take 1 tablet by oral route every day 0 0 ??? clopidogrel (PLAVIX) 75 mg tablet TAKE ONE BY MOUTH ONE TIME PER DAY 90 5 ??? clotrimazole-betamethasone (LOTRISONE) cream apply by topical route 2 times every day for 2 weeks to the affected and surrounding areas of skin in the morning and evening 15 3 ??? cyanocobalamin (vitamin B-12) 1,000 mcg tablet take 1 tablet by oral route every day 0 0 ??? empagliflozin (JARDIANCE) 10 mg tablet take 1 tablet by oral route every day in the morning 90 4 ??? esomeprazole DR (NexIUM) 40 mg capsule TAKE 1 CAPSULE DAILY 90 1 ??? flecainide (TAMBOCOR) 50 mg tablet take 1 tablet by oral route every 12 hours 0 0 Unknown at Unknown time ??? insulin detemir (LEVEMIR FLEXTOUCH) 100 unit/mL (3 mL) insulin pen inject by subcutaneous routeper prescriber's instructions. Insulin dosing requires individualization. 10 units 0 Syringe 0 ??? latanoprost (XALATAN) 0.005 % ophthalmic solution instill 1 drop by Ophthalmic route every day into affected eye(s)in the evening 0 ??? latanoprost (XALATAN) 0.005 % ophthalmic solution instill 1 drop by ophthalmic route every day into affected eye(s) in the evening 0 0 Unknown at Unknown time ??? peg 400-propylene glycol (SYSTANE ULTRA) 0.4-0.3 % drops PRN (Patient taking differently: Administer 2 drops into both eyes as needed (dry eyes). ) 0 0 Unknown at Unknown time ??? rosuvastatin (CRESTOR) 10 mg tablet take 1 tablet by oral route every day 0 0 ??? SITagliptin (JANUVIA) 100 mg tablet take 1 tablet by oral route every day 30 5 Allergies Allergen Reactions ??? Donepezil Other (See comments) Reaction: unknown reaction, , , Reaction: yeast infection, ??? Black Pepper ??? Diltiazem Edema, Diarrhea and Other (See comments) Reaction: edema, , Reaction: diarrhea, , , Reaction: ankles swell, ??? Fluticasone Other (See comments) Reaction: colon problems, ??? Metformin Diarrhea Reaction: diarrhea, , ??? Salmeterol Other (See comments) Reaction: colon problems, Social History Substance Use Topics ??? Smoking status: Never Smoker ??? Smokeless tobacco: Never Used ??? Alcohol use No Family History Problem Relation Age of Onset ??? Breast cancer Mother Cancer, breast; /Cancer -breast; ??? Heart failure Father Congestive heart failure; ??? Hypertension Brother Hypertension; ??? Hypertension Brother Hypertension; Review of Systems Please see pertinent positives in HPI. Otherwise patient states her appetite is good. Her energy islow but stable. She states her weight has been increasing due to medications that she was started on for breast cancer. She has chronic numbness and tingling. She has chronic lower extremity lymphedema. She also has IBS. Review of systems is otherwise negative. OBJECTIVE Vitals: Arrival Vitals Temp 09/30/172007 36.7 ??C (98 ??F) Pulse 09/30/172007 84 Resp 09/30/172007 16 BP 09/30/172007 145/66 SpO2 09/30/172006 90 % Temp src 09/30/172007 Oral Heart Rate Source -- Patient Position 09/30/17 2251 Sitting BP Location 09/30/17 2309 Right arm FiO2 (%) -- 24hr Min/Max: Temp Min: 36.4 ??C (97.5 ??F) Max: 36.8 ??C (98.2 ??F) Pulse Min: 74 Max: 89 BP Min: 112/53 Max: 147/79 Resp Min: 15 Max: 21 SpO2 Min: 90 % Max: 98 % Most Recent : Vitals: 10/01/17 0428 BP: 118/57 Pulse: 77 Resp: 18 Temp: 36.4 ??C (97.5 ??F) SpO2: 96% I/O this shift: In: - Out: 1000 [Urine:1000] PHYSICAL EXAM GENERAL: No acute distress, A&O x4 HEENT: No conjunctival pallor, mucous membranes are moist NEURO: MONTY, EOMI, moves all extremities CVS: S1-S2, regular rate and rhythm LUNGS: Clear to auscultation bilaterally ABDOMEN: Positive bowel sounds, soft, nontender, mild distention with positive tympany EXT: No lower extremity tenderness to palpation, bilateral lower extremity erythema which patient states is improved from usual and minimal pitting edema SKIN: Warm, dry Lab/Radiology/Diagnostic Review: Recent Results (from the past 24 hour(s)) Magnesium Collection Time: 09/30/17 8:09 PM Result Value Ref Range Magnesium 2.3 1.6 - 2.4 mg/dL CBC with auto differential Collection Time: 09/30/17 8:24 PM Result Value Ref Range WBC 15.1 (H) 3.8 - 9.9 K/cumm RBC 5.18 3.90 - 5.20 M/cumm Hgb 11.9 11.9 - 15.5 g/dL Hct 39.5 35.6 - 45.5 % MCV 76.3 (L) 81.3 - 96.4 fL MCH 23.0 (L) 27.1 - 33.3 pg MCHC 30.1 (L) 32.3 - 35.7 g/dL RDW CV 20.8 (H) 11.1 - 14.9 % RDW SD 55.2 (H) 35.7 - 48.1 fL Plt 384 150 - 400 K/cumm MPV 10.3 9.1 - 12.3 fL NRBC Abs 0.00 0.00 - 0.01 K/cumm Comprehensive metabolic panel Collection Time: 09/30/17 8:24 PM Result Value Ref Range Sodium 138 135 - 145 mmol/L Potassium 2.7 (Critical) 3.3 - 4.9 mmol/L CO2 26 22 - 32 mmol/L BUN 18 8 - 25 mg/dL Glucose 127 70 - 199 mg/dL Creatinine 0.84 0.60 - 1.10 mg/dL Calcium 9.9 8.5 - 10.3 mg/dL Chloride 97 97 - 110 mmol/L Albumin 4.1 3.5 - 5.0 g/dL AST 14 10 - 45 Units/L ALT 15 7 - 45 Units/L Alk phos 93 40 - 130 Units/L Bilirubin <0.2 0.1 - 1.2 mg/dL Protein, pl 6.6 6.5 - 8.5 g/dL Anion Gap 15 2 - 15 mmol/L Pro B-type natriuretic peptide Collection Time: 09/30/17 8:24 PM Result Value Ref Range Pro BNP 82 10 - 280 pg/mL Protime-INR Collection Time: 09/30/17 8:24 PM Result Value Ref Range PT 11.4 9.5 - 13.0 sec INR 1.01 0.90 - 1.20 aPTT Collection Time: 09/30/17 8:24 PM Result Value Ref Range APTT 27.4 25.0 - 37.0 sec Troponin T Collection Time: 09/30/17 8:24 PM Result Value Ref Range Troponin T <0.01 0.00 - 0.06 ng/mL Differential, auto Collection Time: 09/30/17 8:24 PM Result Value Ref Range Neutrophil absolute 12.8 (H) 1.7 - 6.5 K/cumm Immature granulocyte absolute 0.1 0.0 - 0.1 K/cumm Lymphocytes absolute 0.7 (L) 0.8 - 3.3 K/cumm Monocyte absolute 1.3 (H) 0.2 - 0.8 K/cumm Eosinophils absolute 0.1 0.0 - 0.5 K/cumm Basophils, abs 0.0 0.0 - 0.1 K/cumm Neutrophils 85.1 % Immature granulocytes 0.5 % Lymphocytes 4.8 % Monocytes 8.9 % Eosinophils 0.4 % Basophils 0.3 % eGFR Collection Time: 09/30/17 8:24 PM Result Value Ref Range GFR >60 mL/min/1.73 m2 Urinalysis reflex to microscopic and culture Urine, clean voided Collection Time: 09/30/17 9:58 PM Result Value Ref Range Color, ur Yellow Yellow Clarity, ur Clear Clear Specific gravity, ur 1.019 1.010 - 1.025 pH, urine 6.5 Protein, ur ql Negative Negative Glucose, ur ql 3+ (A) Negative Ketones, ur Trace Negative Bilirubin, ur Negative Negative Blood, ur Negative Negative Urobilinogen, ur 0.2 mg/dL Nitrite, ur Negative Negative Leukocyte esterase, ur Negative Negative Basic metabolic panel Collection Time: 10/01/17 12:20 AM Result Value Ref Range Sodium 143 135 - 145 mmol/L Potassium 3.5 3.3 - 4.9 mmol/L Chloride 101 97 - 110 mmol/L CO2 27 22 - 32 mmol/L BUN 19 8 - 25 mg/dL Glucose 171 70 - 199 mg/dL Creatinine 0.78 0.60 - 1.10 mg/dL Calcium 9.9 8.5 - 10.3 mg/dL Anion Gap 15 2 - 15 mmol/L eGFR Collection Time: 10/01/17 12:20 AM Result Value Ref Range GFR >60 mL/min/1.73 m2 Xr Chest 1 Vw Portable Result Date: 09/30/2017 Narrative: EXAM: Chest; AP portable at 2014 HISTORY: weakness. COMPARISON: 06/14/2016 FINDINGS: Theheart appears enlarged. Mild congestion/edema is noted. No pneumothorax or pleural effusions are seen. Impression: 1. Cardiomegaly. 2. Mild congestion/edema. Electronically signed by: Bradley Suresh M.D. ASSESSMENT/PLAN Principal Problem: Hypokalemia Active Problems: Breast cancer (CMS/HCC) Generalized weakness Nausea & vomiting DM (diabetes mellitus) ([facility]/HCC) Chronic ischemic heart disease Pure hypercholesterolemia PAF (paroxysmal atrial fibrillation) ([facility]/HCC) Lymphedema of both lower extremities CATY on CPAP * Hypokalemia Assessment & Plan Likely secondary to diuretic use. Patient is on Lasix and metolazone. Patient was given 60 mEq in total and repeat potassium was 3.5. Will give patient another 20 mEq and repeat potassium at 1400. Patient does have PVCs DM (diabetes mellitus) ([facility]) Assessment & Plan Resume Lantus 6 units q.h.s.. Resume Januvia and Jardiance. Place patient on low-dose sliding scale. Continue to monitor. Nausea & vomiting Assessment & Plan Possible side effect from anastrozole. Will have p.r.n. Zofran. 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 Generalized weakness Assessment & Plan Etiology is unclear but possibly related to hypokalemia. Patient is feeling much better at this time. Will continue to monitor. Breast cancer ([facility]) Assessment & Plan Patient was diagnosed in 08/2017. She was started on anastrozole. Possible side effects when asked resolved continued nausea and vomiting. Will continue with anastrozole. CATY on CPAP Assessment & Plan Will order CPAP q.h.s.. Patient states her setting is 11. Lymphedema of both lower extremities Assessment & Plan This is a chronic issue. Holding Lasix and metolazone secondary to hypokalemia. Patient states her legs look better than they normally are currently. PAF (paroxysmal atrial fibrillation) ([facility]) Assessment & Plan Patient appears to be in sinus rhythm at this time. Will continue for rapid middle and flecainide. Continue to monitor. Pure hypercholesterolemia Assessment & Plan Continue Crestor Chronic ischemic heart disease Assessment & Plan Continue aspirin and Plavix. Continue statin. Patient states she had a negative stress test 6 months ago. Diet. Consistent carb cardiac DVT Prophylaxis. Lovenox Code status. Full. POA are her and daughters. Estimated length of stay less than 2 midnights documented in this encounter Nursing Notes * Trina Quinones RN - 10/03/2017 6:52 PM CDT Patient refusing home health. Home health ordered, call placed to [facility] after hours line. Awaiting return call. at bedside. * Manish Chavez RN - 10/01/2017 6:11 PM CDT Has been sitting in the Chair this afternoon. Returned to bed at present. No c/o any discomfort. Family member at bedside * Vinny Whaley RN - 10/01/2017 10:19 AM CDT Trio round completed with Dr Lehman at 1019 documented in this encounter ED Notes * Felix Martinez, DO - 09/30/2017 8:31 PM CDTAssociated Order(s): ECG 12-LEAD HPI Chief Complaint Patient presents with ??? Weakness - Generalized (2011): 76 y/o female, with a history of hypertension, hyperlipidemia, atrial fibrillation, CAD, and TIA, presents for evaluation of nausea and generalized weakness that began today around 3:30 pm, while she was sitting down at her kitchen table. She was having some mild chest discomfort and dyspnea, but these were completely resolved after she had an episode of vomiting. Denies having any chest pain or dyspnea since. No palpitations or syncope. No diarrhea or abdominal pain. No cough or fever.She notes that she had some difficulty getting out of the chair secondary to her symptoms, but mentions that she feels much better at this time. She reports that Dr. Valencia follows her for her atrial f ibrillation, which is treated via medication management; she has never been cardioverted. On reviewof her home medications, she takes Plavix and Aspirin. She additionally has swelling and erythema of the lower legs bilaterally, but this is chronic for the patient as she has lymphatic edema, and has not had any recent changes. Her PCP is Dr. Garrison. No other complaints at this time. Patient History Patient Active Problem List Diagnosis Date Noted ??? Pure hypercholesterolemia 08/30/2015 Class: Chronic ??? Asthma 02/17/2013 Class: Chronic ??? Hypokalemia 02/17/2013 Class: Chronic ??? Chronic ischemic heart disease 11/06/2011 Class: Chronic ??? Adiposity 11/06/2011 Class: Chronic ??? Atherosclerosis of coronary artery bypass graft 07/02/2011 Class: Chronic Past Medical History: Diagnosis Date ??? Anemia Anemia ??? Asthma Asthma ??? Chronic coronary artery disease Coronary artery disease ??? Glaucoma Glaucoma ??? Herpes zoster Herpes zoster ??? HX OTHER MEDICAL Transient ischemic attack (TIA) ??? HX OTHER MEDICAL Fx Sacrum 1999 ??? HX OTHER MEDICAL Lymphatic edema ??? HX OTHER MEDICAL Spinal Cerebellum Degeneration ??? HX OTHER MEDICAL URI/GERD; Outcome: improved ??? HX OTHER MEDICAL TIA ??? Hyperlipidemia Hyperlipidemia ??? Hypertension Hypertension ??? Osteoarthritis Osteoarthritis Past Surgical History: Procedure Laterality Date ??? CHOLECYSTECTOMY 1997 Cholecystectomy ??? HYSTERECTOMY 1986 Hysterectomy ??? OTHER SURGICAL HISTORY Ulcer removal from vocal cord ??? OTHER SURGICAL HISTORY Fx nose surgery ??? OTHER SURGICAL HISTORY 2003 Right Arthroscopy knee ??? OTHER SURGICAL HISTORY 2009 Ventral hernia repair with prolene mesh 01/26 ??? OTHER SURGICAL HISTORY 2012 URI/GERD: Medical Management ??? TOTAL ABDOMINAL HYSTERECTOMY W/ BILATERAL SALPINGOOPHORECTOMY 1980 Hysterectomy, total abdominal, BSO Family History Problem Relation Age of Onset ??? Breast cancer Mother Cancer, breast; /Cancer -breast; ??? Heart failure Father Congestive heart failure; ??? Hypertension Brother Hypertension; ??? Hypertension Brother Hypertension; Social History Substance Use Topics ??? Smoking status: Never Smoker ??? Smokeless tobacco: Never Used ??? Alcohol use No Social History Social History Narrative Lives at home. Review of Systems Review of Systems Constitutional: Negative for chills and fever. HENT: Negative for congestion, ear pain, rhinorrhea and sore throat. Eyes: Negative for discharge and redness. Respiratory: Positive for shortness of breath. Negative for cough. Cardiovascular: Positive for chest pain. Negative for palpitations. Gastrointestinal: Positive for diarrhea, nausea and vomiting. Negative for abdominal pain. Genitourinary: Negative for dysuria and frequency. Musculoskeletal: Negative for back pain and neck pain. Swelling of lower legs bilaterally, chornic. Skin: Negative for wound. Erythema of lower legs bilaterally, chornic. Neurological: Positive for weakness (generalized). Negative for syncope and headaches. All other systems reviewed and are negative. Physical Exam ED Triage Vitals Temp Pulse Resp BP SpO2 09/30/17200709/30/17200709/30/17200709/30/17200709/30/17 2007 36.7 ??C (98 ??F) 84 16 145/66 90 % Temp src Heart Rate Source Patient Position BP Location FiO2 (%) 09/30/172007 -- -- -- -- Oral Physical Exam Constitutional: She is oriented to person, place, and time. She appears well- developed and well-nourished. No distress. HENT: Head: Normocephalic and atraumatic. Mouth/Throat: Oropharynx is clear and moist. Eyes: Conjunctivae and EOM are normal. Neck: Normal range of motion. Neck supple. Cardiovascular: Normal rate, regular rhythm and intact distal pulses. Murmur (systolic) heard. Pulmonary/Chest: Effort normal and breath sounds normal. No respiratory distress. She has no wheezes. Abdominal: Soft. There is no tenderness. There is no rebound and no guarding. Musculoskeletal: Normal range of motion. She exhibits no tenderness or deformity. Edema and erythema to the bilateral lower extremities. Neurological: She is alert and oriented to person, place, and time. No sensory deficit. Skin: Skin is warm and dry. Nursing note and vitals reviewed. ED Course & MDM ED Course as of Oct 01 2223 Tue September 30, 20172222 Case discussed with [facility] who [facility] patient for admission. [KM] 2222 Rechecked patient. She has been informed of the lab, radiology, and EKG findings. Also discussed plan for admission for further evaluation and treatment. Patient verbalizes understanding and agreement with plan. All questions have been addressed at this time. [KM] 2144 Potassium: (!!) 2.7 [KM] 2030 Pre-hypertension/Hypertension: The patient has been informed that they may have pre-hypertension or Hypertension based on a blood pressure reading in the Emergency Department. I recommend that the patient call the primary care provider listed on their discharge instructions or a physician of their choice this week to arrange follow up for further evaluation of possible pre- hypertension or Hypertension. [KM] ED Course User Index [KM] Je Jeffries Vitals: 09/30/17200709/30/17204409/30/17211409/30/172129 BP: 145/66 147/79 144/77 143/63 Pulse: 84 82 83 82 Resp: 16 15 20 21 Temp: 36.7 ??C (98 ??F) TempSrc: Oral SpO2: 94% 96% 97% 95% Weight: 96.2 kg (212 lb) Height: 165.1 cm (5' 5 ) Labs Reviewed URINALYSIS AND REFLEX TO MICROSCOPIC AND CULTURE - Abnormal Result Value Color, ur Yellow Clarity, ur Clear Specific gravity, ur 1.019 pH, urine 6.5 Protein, ur ql Negative Glucose, ur ql 3+ (*) Ketones, ur Trace Bilirubin, ur Negative Blood, ur Negative Urobilinogen, [...] tendency for uric acid stone formation. Source: [facility] [place] [employer].Last revised 05-29-2017 CBC WITH AUTO DIFFERENTIAL - Abnormal WBC 15.1 (*) RBC 5.18 Hgb 11.9 Hct 39.5 MCV 76.3 (*) MCH 23.0 (*) MCHC 30.1 (*) RDW CV 20.8 (*) RDW SD 55.2 (*) Plt 384 MPV 10.3 NRBC Abs 0.00 Narrative: COMPREHENSIVE METABOLIC PANEL - Abnormal Sodium 138 Potassium 2.7 (*) CO2 26 BUN 18 Glucose 127 Creatinine 0.84 Calcium 9.9 Chloride 97 Albumin 4.1 AST 14 ALT 15 Alk phos 93 Bilirubin <0.2 Protein, pl 6.6 Anion Gap 15 Narrative: DIFFERENTIAL AUTO - Abnormal Neutrophil absolute 12.8 (*) Immature granulocyte absolute 0.1 Lymphocytes absolute 0.7 (*) Monocyte absolute 1.3 (*) Eosinophils absolute 0.1 Basophils, abs 0.0 Neutrophils 85.1 Immature granulocytes 0.5 Lymphocytes 4.8 Monocytes 8.9 Eosinophils 0.4 Basophils 0.3 Narrative: PRO B-TYPE NATRIURETIC PEPTIDE Pro BNP 82 Narrative: PROTIME-INR PT 11.4 INR 1.01 Narrative: APTT APTT 27.4 Narrative: TROPONIN T Troponin T <0.01 Narrative: EGFR GFR >60 Narrative: XR Chest 1 Vw Portable ED Interpretation Cardiomegaly with chf Final Result 1. Cardiomegaly. 2. Mild congestion/edema. Electronically signed by: Bradley Suresh M.D. ECG 12 lead Performed by: FELIX MARTINEZ Authorized by: FELIX MARTINEZ Sinus rhythm, rate 81. Non-specific ST changes. Nothing acute. MDM This note was prepared by Je Jeffries, acting as a Scribe for Felix Martinez DO. I electronically signed this note at 10:24 PM on 09/30/2017. I, Felix Martinez DO, have personally performed the services described in the documentation, reviewed the documentation, as recorded by the scribe in my presence, and it accurately and completely records my words and actions. No diagnosis found. Felix Martinez DO 09/30/172231 * Sahra Sánchez RN - 09/30/2017 8:09 PM CDT Pt complaining of nausea and weakness starting around 3:30 PM when she was sitting at her kitchen table. Pt has vomited once since then. Pt states, I thought it could of been my A-fib. * Vannesa Cole RN - 09/30/2017 8:06 PM CDT Bed: ED09 Expected date: Expected time: Means of arrival: Comments: 1842 Vannesa Cole RN 09/30/172005 documented in this encounter Miscellaneous Notes * Plan of Care - Trina Quinones RN - 10/03/2017 6:14 PM CDT Goals: Clinical Goals for the Shift: Patient elecrolytes to be WNL Summary: Patient up in chair for meals. No c/o pain or distress noted. Patient hemodynamically stable. Given extra dose of KCL 40 meq. Patient potassium rechecked before extra dose and is 3.2. Patient to discharge home. Activity: ??? Mobility will improve Progressing ??? Risk for activity intolerance will decrease Progressing Health Behavior: ??? Understanding of discharge needs will improve Progressing Lack of Knowledge: ??? Ability to state ways to decrease the risk of falls will improve Progressing Lack of Knowledge: ??? Understanding of ways to prevent future skin breakdown will improve Progressing ??? Ability to identify appropriate dietary choices will improve Progressing Nutritional: ??? Dietary intake will improve Progressing ??? Ability to maintain a balanced intake and output will improve Progressing Safety: ??? Will remain free from falls Progressing ??? Will remain free from injury from falls Progressing ??? Will remain free from falls and injury in home environment Progressing ??? Ability to remain free from injury will improve Progressing Self-Care: ??? Ability to participate in self-care as condition permits will improve Progressing Skin Integrity: ??? Risk for impaired skin integrity will decrease Progressing ??? Ability to demonstrate warm and dry skin will improve Progressing ??? Circulation will improve to fullest extent possible Progressing * Plan of Care - Trina Quinones RN - 10/03/2017 4:13 PM CDT Goals: Clinical Goals for the Shift: Patient elecrolytes to be WNL Summary: Patient Potassium 3.2. MD states she will be discharging patient. Patient aware. Resting comfortably per bed. No c/o pain or distress noted. Activity: ??? Mobility will improve Adequate for Discharge ??? Risk for activity intolerance will decrease Adequate for Discharge Health Behavior: ??? Understanding of discharge needs will improve Adequate for Discharge Lack of Knowledge: ??? Ability to state ways to decrease the risk of falls will improve Adequate for Discharge Lack of Knowledge: ??? Understanding of ways to prevent future skin breakdown will improve Adequate for Discharge ??? Ability to identify appropriate dietary choices will improve Adequate for Discharge Nutritional: ??? Dietary intake will improve Adequate for Discharge ??? Ability to maintain a balanced intake and output will improve Adequate for Discharge Safety: ??? Will remain free from falls Adequate for Discharge ??? Will remain free from injury from falls Adequate for Discharge ??? Will remain free from falls and injury in home environment Adequate for Discharge ??? Ability to remain free from injury will improve Adequate for Discharge Self-Care: ??? Ability to participate in self-care as condition permits will improve Adequate for Discharge Skin Integrity: ??? Risk for impaired skin integrity will decrease Adequate for Discharge ??? Ability to demonstrate warm and dry skin will improve Adequate for Discharge ??? Circulation will improve to fullest extent possible Adequate for Discharge * Plan of Care - Melody Joseph PTA - 10/03/2017 9:42 AM CDT Problem: PT Misc Goal: STG - Misc 3 Pt to ambulate with fww 60' sba Outcome: Progressing * Plan of Care - Darnell Gutiérrez PTA - 10/03/2017 7:08 AM CDT Problem: PT Misc Goal: STG - Misc 1 Pt to be cga with bed mobility Outcome: Progressing Goal: STG - Misc 2 Pt to be sba with all transfers Outcome: Progressing Goal: STG - Misc 3 Pt to ambulate with fww 60' sba Outcome: Progressing * Provider Query - Ciara Lehman MD - 10/02/2017 12:44 PM CDT Please clarify the Present on Admission status and document in the medical record and on the form below. Diagnosis: ACUTE On CHRONIC DIASTOLIC CHF ____ Was present on admission __x__ Was NOT present on admission ____ Clinically unable to determine if present on admission. Clinical Indicators/Treatments/Procedures: 76 yof presented with generalized weakness. Admitted with Hypokalemia. (K 2.7) CXR on admit- cardiomegaly, Mild congestion/edema BNP NL, Trops neg x 3. H&P Noted- chronic ischemic heart disease PN dated 10/01 notes- acute on chronic diastolic CHF No resp distress noted. Give Lasix x 1 IV. Check Echo. Continue to monitor closely. Provider Response: Use of terms such as likely, suspected, possible, or probable (associated with a specific diagnosisthat is being evaluated, monitored, or treated as if it exists) are acceptable and can be coded in the inpatient setting when documented at the time of discharge. This documentation will become part of the patient's medical record. Sincerely, Bertha Venegas RN [phone] Clinical Casting Machine Operator Helper * Plan of Care - Jerzy Fisher RN - 10/02/2017 6:20 AM CDT Goals: Clinical Goals for the Shift: Pt to remain hemodynamically stable and free of injury. Summary: * Plan of Care - Vinny Whaley RN - 10/01/2017 3:21 PM CDT Goals: Clinical Goals for the Shift: Pt to remain hemodynamically stable and free of injury. Summary: * Assessment & Plan Note - Maria Del Rosario Vences MD - 10/01/2017 5:48 AM CDTAssociated Problem(s): CATY on CPAP Will order CPAP q.h.s.. Patient states her setting is 11. * Assessment & Plan Note - Maria Del Rosario Vences MD - 10/01/2017 5:44 AM CDTAssociated Problem(s): Chronic ischemic heart disease Continue aspirin and Plavix. Continue statin. Patient states she had a negative stress test 6 months ago. * Assessment & Plan Note - Maria Del Rosario Vences MD - 10/01/2017 5:42 AM CDTAssociated Problem(s): Nausea & vomiting Possible side effect from anastrozole. Will have p.r.n. Zofran. 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 * Assessment & Plan Note - Maria Del Rosario Vences MD - 10/01/2017 5:42 AM CDTAssociated Problem(s): Weakness generalized Etiology is unclear but possibly related to hypokalemia. Patient is feeling much better at this time. Will continue to monitor. * Assessment & Plan Note - Maria Del Rosario Vences MD - 10/01/2017 5:41 AM CDTAssociated Problem(s): Breast cancer (HCC) Patient was diagnosed in 08/2017. She was started on anastrozole. Possible side effects when asked resolved continued nausea and vomiting. Will continue with anastrozole. * Assessment & Plan Note - Maria Del Rosario Vences MD - 10/01/2017 5:41 AM CDTAssociated Problem(s): Pure hypercholesterolemia Continue Crestor * Assessment & Plan Note - Maria Del Rosario Vences MD - 10/01/2017 5:41 AM CDTAssociated Problem(s): Lymphedema of both lower extremities This is a chronic issue. Holding Lasix and metolazone secondary to hypokalemia. Patient states her legs look better than they normally are currently. * Assessment & Plan Note - Maria Del Rosario Vences MD - 10/01/2017 5:40 AM CDTAssociated Problem(s): PAF (paroxysmal atrial fibrillation) (CMS/HCC) ([facility]) Patient appears to be in sinus rhythm at this time. Will continue for rapid middle and flecainide. Continue to monitor. * Assessment & Plan Note - Maria Del Rosario Vences MD - 10/01/2017 5:40 AM CDTAssociated Problem(s): DM (diabetes mellitus) ([facility]) Resume Lantus 6 units q.h.s.. Resume Januvia and Jardiance. Place patient on low-dose sliding scale. Continue to monitor. * Assessment & Plan Note - Maria Del Rosario Vences MD - 10/01/2017 5:39 AM CDTAssociated Problem(s): Hypokalemia Likely secondary to diuretic use. Patient is on Lasix and metolazone. Patient was given 60 mEq in total and repeat potassium was 3.5. Will give patient another 20 mEq and repeat potassium at 1400. Patient does have PVCs * Plan of Care - Aleta Rivas RN - 10/01/2017 3:48 AM CDT Goals: Clinical Goals for the Shift: Pt to remain hemodynamically stable and free of injury. Summary: Pt rested quietly per bed. Assisted up to bsc, tolerated well. No complaints voiced. Vss. No signs of distress noted. Resp even and unlabored on rm air. documented in this encounter Plan of Treatment Not on file documented as of this encounter Procedures Procedure Name Priority Date/Time Associated Diagnosis Comments GLUCOSE POC Routine 10/03/2017 4:52 PM CDT POTASSIUM LEVEL Timed 10/03/2017 2:43 PM CDT GLUCOSE POC Routine 10/03/2017 11:50 AM CDT TRANSTHORACIC ECHO (TTE) COMPLETE W DOPPLER/CF WO CONTRAST Routine 10/03/2017 10:58 AM CDT GLUCOSE POC Routine 10/03/2017 7:57 AM CDT EGFR Routine 10/03/2017 7:16 AM CDT PHOSPHORUS Routine 10/03/2017 7:16 AM CDT MAGNESIUM Routine 10/03/2017 7:16 AM CDT BASIC METABOLIC PANEL Routine 10/03/2017 7:16 AM CDT GLUCOSE POC Routine 10/03/2017 2:31 AM CDT DISCHARGE LABORATORY CUMULATIVE REPORT 10/03/2017 12:00 AM CDT GLUCOSE POC Routine 10/02/2017 9:07 PM CDT GLUCOSE POC Routine 10/02/2017 5:05 PM CDT POTASSIUM LEVEL Timed 10/02/2017 2:57 PM CDT GLUCOSE POC Routine 10/02/2017 11:08 AM CDT GLUCOSE POC Routine 10/02/2017 8:10 AM CDT EGFR Routine 10/02/2017 4:14 AM CDT DIFFERENTIAL AUTO Routine 10/02/2017 4:1 4 AM CDT CBC WITH AUTO DIFFERENTIAL Routine 10/02/2017 4:14 AM CDT PHOSPHORUS Routine 10/02/2017 4:14 AM CDT MAGNESIUM Routine 10/02/2017 4:14 AM CDT BASIC METABOLIC PANEL Routine 10/02/2017 4:14 AM CDT GLUCOSE POC Routine 10/02/2017 2:02 AM CDT TROPONIN T Timed 10/02/2017 12:10 AM CDT GLUCOSE POC Routine 10/01/2017 9:19 PM CDT GLUCOSE POC Routine 10/01/2017 4:58 PM CDT EGFR Timed 10/01/2017 2:28 PM CDT TROPONIN T Timed 10/01/2017 2:28 PM CDT BASIC METABOLIC PANEL Timed 10/01/2017 2:28 PM CDT GLUCOSE POC Routine 10/01/2017 12:01 PM CDT GLUCOSE POC Routine 10/01/2017 7:50 AM CDT EGFR Timed 10/01/2017 12:20 AM CDT BASIC METABOLIC PANEL Timed 10/01/2017 12:20 AM CDT URINALYSIS AND REFLEX TO MICROSCOPIC AND CULTURE STAT 09/30/2017 9:58 PM CDT ECG 12-LEAD STAT 09/30/2017 8:35 PM CDT EGFR STAT 09/30/2017 8:24 PM CDT DIFFERENTIAL AUTO STAT 09/30/2017 8:2 4 PM CDT PRO B-TYPE NATRIURETIC PEPTIDE STAT 09/30/2017 8:24 PM CDT CBC WITH AUTO DIFFERENTIAL STAT 09/30/2017 8:24 PM CDT APTT STAT 09/30/2017 8:24 PM CDT PROTIME-INR STAT 09/30/2017 8:24 PM CDT TROPONIN T STAT 09/30/2017 8:24 PM CDT COMPREHENSIVE METABOLIC PANEL STAT 09/30/2017 8:24 PM CDT XR CHEST 1 VIEW ED 09/30/2017 8:17 PM CDT MAGNESIUM Routine 09/30/2017 8:09 PM CDT documented in this encounter Results * (ABNORMAL) Glucose POC (10/03/2017 4:52 PM CDT) Glucose, POC 137(H) 71 - 98 mg/dL [facility] ([place]) Blood specimen (specimen) 10/03/2017 4:52 PM CDT 10/03/2017 4:52 PM CDT Narrative [facility] ([place]) - 10/03/2017 4:53 PM CDT us Ciara Lehman MD POINT OF CARE TEST ORDERABLES Fi nal Result [facility] ([place]) 1 [facility] Department [place] [address] * (ABNORMAL) Potassium (10/03/2017 2:43 PM CDT) Potassium, pl 3.2(L) 3.3 - 4.9 mmol/L [facility] ([place]) Blood specimen (specimen) 10/03/2017 2:43 PM CDT 10/03/2017 3:00 PM CDT Narrative [facility] ([place]) - 10/03/2017 3:21 PM CDT Ciara Lehman MD LAB BLOOD ORDERABLES Final Resul t Performing Organization Address [facility] Co de Phone Number [facility] ([place]) [address] [place] [address] Department [place] [address] * (ABNORMAL) Glucose POC (10/03/2017 11:50 AM CDT) [facility] Glucose, POC 151(H) 71 - 98 mg/dL [facility] ([place]) Blood specimen (specimen) 10/03/2017 11:50 AM CDT 10/03/2017 11:50 AM CDT Narrative [facility] ([place]) - 10/03/2017 11:52 AM CDT Ciara Lehman MD POINT OF CARE TEST ORDERABLES Fi nal Result Performing Organization Address [facility] Co de Phone Number [facility] ([place]) [address] [place] [address] Department [place] [address] * TRANSTHORACIC ECHO (TTE) COMPLETE W DOPPLER/CF WO CONTRAST (10/03/2017 10:58 AM CDT) Anatomical Region Laterality Modality Ultrasound 10/03/2017 10:3 9 AM CDT Narrative 10/03/2017 5:34 PM CDT [address] [address] Echocardiogram Report Patient Name: LOC ANDERSON : 1940 Study Date: 10/03/2017 10:39:49 Gender: F Tech: SS Location: [id number] Ref.Physician: Height(Cm): 157 BSA: 2.05 Weight(Kg): 96.2 Quality: Technically Difficult Study Procedures: Echocardiographic Report: Transthoracic echocardiogram with complete 2D, M-Mode, and color Doppler examination. Indications: Congestive Heart Failure. Measurements: 2D/M Mode ? Doppler ? Measurement ?Value ?Normal Range ?Measurement ?Value ?Normal Range ? LA Dimension MM ?4.20 ? [ 2.70 - 3.80 ] cm ?AV Mean PG ? 10 ? [ 2 - 4 ] mmHg ? AoR Diam MM ?3.61 ? [ 2.60 - 3.70 ] cm ?AV Peak Javed ?2.08 ? [ 1.00 - 1.70 ] m/s ? ACS MM ? 1.79 ? cm ?AV VTI ? 38.18 ?cm ?LVOT Diam ?1.93 ? [ 1.70 - 2.10 ] cm ?LVOT Peak Javed ?1.21 ? [ 0.70 - 1.10 ] m/s ?LVOT VTI ? 22.59 ?[ 20.00 - 30.00 ] cm ?MV E Peak Javed ?0.84 ? [ 0.60 - 1.30 ] m/s ?MV A Peak Javed ?1.42 ? [ 1.00 - 1.20 ] m/s ?MV PHT ? 55 ? [ 20 - 100 ] msec ?MV Decel Time ?170 ?[ 104 - 258 ] msec ?PV Peak Javed ?1.29 ? [ 0.40 - 0.80 ] m/s ?TR Peak Javed ?2.39 ? [ 1.00 - 2.80 ] m/s ?TR Peak PG ? 23 ? mmHg ? Findings: Atrial Septum: Normal atrial septum. Left Ventricle: Mild concentric left ventricular hypertrophy. Hyperdynamic left ventricular function. No focal wall motion abnormalities. Diastolic dysfunction is present. Ejection fraction is visually estimated at 70 to 75 %. Left Atrium: The left atrium is normal in size. Right Ventricle: Normal right ventricular size. Right Atrium: The right atrium is normal in size. Aortic Valve: No evidence of hemodynamically significant aortic stenosis by Doppler. Mildly elevated AV velocity is likely due to hyperdynamic LV function. Peak velocity AOV of 2.1 m/sec. Peak gradient of 18.0 mmHg. Aortic cusps appear mildly sclerotic. Mitral Valve: Normal structure of the mitral valve. Trivial regurgitation of the mitral valve. Pulmonic Valve: Pulmonic valve not well visualized. Tricuspid Valve: Normal structure of the tricuspid valve. Trivial regurgitation in the tricuspid valve. Pericardium: Normal pericardium with no significant pericardial effusion. Aorta: Normal aortic root. IVC: The IVC is not well visualized. Conclusions: Mild concentric left ventricular hypertrophy. Hyperdynamic [...] By: Dr Nelson Corona 2017-10-03 17:34:27 CDT CC: CC: Procedure Note Nelson Corona MD - 10/03/[address] [place] [address] Echocardiogram Report Patient Name: Karl ANDERSON ID: [id number] : [id number] Date: 10/03/2017 10:39:49 Gender: FAccession #: [id number] Tech: SSLocation: [id number] Ref.Physician: Height(Cm): 157 BSA: 2.05Weight(Kg): 96.2 Quality: Technically Difficult Study Procedures: Echocardiographic Report: Transthoracic echocardiogram with complete 2D, M-Mode, and color Dopplerexamination. Indications: Congestive Heart Failure. Measurements: 2D/M Mode Doppler Measurement Value Normal Range Measurement ValueNormal Range LA Dimension MM 4.20 [ 2.70 - 3.80 ] cm AV Mean PG 10[ 2 - 4 ] mmHg AoR Diam MM 3.61 [ 2.60 - 3.70 ] cm AV Peak Javed 2.08[ 1.00 - 1.70 ] m/s ACS MM 1.79 cm AV VTI 38.18cm LVOT Diam 1.93[ 1.70 - 2.10 ] cm LVOT Peak Javed 1.21[ 0.70 - 1.10 ] m/s LVOT VTI 22.59[ 20.00 - 30.00 ] cm MV E Peak Javed 0.84[ 0.60 - 1.30 ] m/s MV A Peak Javed 1.42[ 1.00 - 1.20 ] m/s MV PHT 55[ 20 - 100 ] msec MV Decel Time 170[ 104 - 258 ] msec PV Peak Javed 1.29[ 0.40 - 0.80 ] m/s TR Peak Javed 2.39[ 1.00 - 2.80 ] m/s TR Peak PG 23mmHg Findings: Atrial Septum: Normal atrial septum. Left Ventricle: Mild concentric left ventricular hypertrophy. Hyperdynamic leftventricular function. No focal wall motion abnormalities. Diastolic dysfunction is present.Ejection fraction is visually estimated at 70 to 75 %. Left Atrium: The left atrium is normal in size. Right Ventricle: Normal right ventricular size. Right Atrium: The right atrium is normal in size. Aortic Valve: No evidence of hemodynamically significant aortic stenosis by Doppler. Mildly elevated AV velocity is likely due to hyperdynamic LV function.Peak velocity AOV of 2.1 m/sec. Peak gradient of 18.0 mmHg. Aortic cusps appear mildlysclerotic. Mitral Valve: Normal structure of the mitral valve. Trivial regurgitation of the mitralvalve. Pulmonic Valve: Pulmonic valve not well visualized. Tricuspid Valve: Normal structure of the tricuspid valve. Trivial regurgitation in thetricuspid valve. Pericardium: Normal pericardium with no significant pericardial effusion. Aorta: Normal aortic root. IVC: The IVC is not well visualized. Conclusions: Mild concentric left ventricular hypertrophy. Hyperdynamic leftventricular function. No focal wall motion abnormalities. Diastolic dysfunction is present.Ejection fraction is visually estimated at 70 to 75 %. Normal structure of the mitral valve. Trivial regurgitation of the mitralvalve. No evidence of hemodynamically significant aortic stenosis by Doppler. Mildly elevated AV velocity is likely due to hyperdynamic LV function.Peak velocity AOV of 2.1 m/sec. Peak gradient of 18.0 mmHg. Aortic cusps appear mildlysclerotic. Normal structure of the tricuspid valve. Trivial regurgitation in thetricuspid valve. Electronically Signed By: Dr Nelson Corona 2017-10-03 17:34:27 CDT CC: CC: Ciara Lehman MD CV ECHO PROCEDURES Final Result * (ABNORMAL) Glucose POC (10/03/2017 7:57 AM CDT) Glucose, POC 111(H) 71 - 98 mg/dL [facility] ([place]) Blood specimen (specimen) 10/03/2017 7:57 AM CDT 10/03/2017 7:57 AM CDT Narrative [facility] ([place]) - 10/03/2017 7:58 AM CDT Ciara Lehman MD POINT OF CARE TEST ORDERABLES Fi nal Result [facility] ([place]) 1 [facility] Department of Laboratories [place], [place] [id number] * eGFR (10/03/2017 7:16 AM CDT) eGFR >60 mL/min/1.7 3 m2 [facility] ([place]) Comment: Interpretive Data Reference Interval Normal ?>/= 90 mL/min/1.73m2 Mildly decreased* ? 60 - 89 mL/min/1.73m2 Mildly to moderately decreased ?45 - 59 mL/min/1.73m2 Moderately to severely decreased ??30 - 44 mL/min/1.73m2 Severely decreased ?15 - 29 mL/min/1.73m2 Kidney Failure ?< 15 ??mL/min/1.73m2 *Relative to young adult level If -Irish multiply value by 1.16. Estimated glomerular filtration [...] was last reviewed 2015. Blood specimen (specimen) 10/03/2017 7:16 AM CDT 10/03/2017 7:34 AM CDT Narrative [facility] ([place]) - 10/03/2017 7:55 AM CDT us Ciara Lehman MD LAB BLOOD ORDERABLES Final Resul t [facility] ([place]) 1 [facility] Department [place] [address] * Phosphorus (10/03/2017 7:16 AM CDT) Phosphorus, pl 3.7 2.3 - 4.5 mg/dL [facility] ([place]) Blood specimen (specimen) 10/03/2017 7:16 AM CDT 10/03/2017 7:34 AM CDT Narrative [facility] ([place]) - 10/03/2017 7:55 AM CDT Ciara Lehman MD LAB BLOOD ORDERABLES Final Resul t Performing Organization Address City/[facility]/ZIP Co de Phone Number [facility] ([place]) 1 [facility] [place] [address] * Magnesium (10/03/2017 7:16 AM CDT) Magnesium 2.1 1.6 - 2.4 mg/dL [facility] ([place]) Blood specimen (specimen) 10/03/2017 7:16 AM CDT 10/03/2017 7:34 AM CDT Narrative [facility] ([place]) - 10/03/2017 7:55 AM CDT Ciara Lehman MD LAB BLOOD ORDERABLES Final Resul t Performing Organization Address [facility] de Phone Number [facility] ([place]) [address] [place] [address] [place] [address] * (ABNORMAL) Basic metabolic panel (10/03/2017 7:16 AM CDT) Sodium 141 135 - 145 mmol/L [facility] ([place]) Potassium, pl 3.1(L) 3.3 - 4.9 mmol/L [facility] ([place]) Chloride 101 97 - 110 mmol/L [facility] ([place]) CO2 28 22 - 32 mmol/L [facility] ([place]) BUN 17 8 - 25 mg/dL [facility] ([place]) Glucose 119 70 - 199 mg/dL [facility] ([place]) [...] interpretive data was last revised 2017. Creatinine 0.69 0.60 - 1.10 mg/dL [facility] ([place]) Calcium 10.2 8.5 - 10.3 mg/dL [facility] ([place]) Anion gap 12 2 - 15 mmol/L [facility] ([place]) Blood specimen (specimen) 10/03/2017 7:16 AM CDT 10/03/2017 7:34 AM CDT Narrative [facility] ED[facility] ([place]) - 10/03/2017 7:55 AM CDT Ciara Lehman MD LAB BLOOD ORDERABLES Final Resul t Performing Organization Address City/[facility]/ZIP Co de Phone Number [facility] ([place]) 1 [facility] [place] [address] * (ABNORMAL) Glucose POC (10/03/2017 2:31 AM CDT) [facility] Glucose, POC 128(H) 71 - 98 mg/dL [facility] ([place]) Blood specimen (specimen) 10/03/2017 2:31 AM CDT 10/03/2017 2:31 AM CDT Narrative [facility] ([place]) - 10/03/2017 2:33 AM CDT Ciara Lehman MD POINT OF CARE TEST ORDERABLES Fi nal Result Performing Organization Address City/[facility]/ZIP Co de Phone Number [facility] ([place]) 1 [facility] [place] [address] * DISCHARGE LABORATORY CUMULATIVE REPORT (10/03/2017 12:00 AM CDT) Narrative 10/03/2017 12:00 AM CDT Ordered by an unspecified provider. Historical Provider LAB BLOOD ORDERABLES Bárbara l Result * (ABNORMAL) Glucose POC (10/02/2017 9:07 PM CDT) Glucose, POC 205(H) 71 - 98 mg/dL MADDI [facility]OFF ([place]ELLA) Blood specimen (specimen) 10/02/2017 9:07 PM CDT 10/02/2017 9:07 PM CDT Narrative M[facility]DI [facility] ([place]) - 10/02/2017 9:12 PM CDT Ciara Lehman MD POINT OF CARE TEST ORDERABLES Fi nal Result MADDI [facility] ([place]A) 1 [facility] [place] [address] * (ABNORMAL) Glucose POC (10/02/2017 5:05 PM CDT) Glucose, POC 135(H) 71 - 98 mg/dL [facility] ([place]A) Blood specimen (specimen) 10/02/2017 5:05 PM CDT 10/02/2017 5:05 PM CDT Narrative [facility] ([place]) - 10/02/2017 5:06 PM CDT Ciara Lehman MD POINT OF CARE TEST ORDERABLES Fi nal Result MADDI [facility] ([place]) 1 [facility] [place] [address] * Potassium (10/02/2017 2:57 PM CDT) Potassium, pl 3.3 3.3 - 4.9 mmol/L [facility] ([place]A) Blood specimen (specimen) 10/02/2017 2:57 PM CDT 10/02/2017 3:05 PM CDT Narrative M[facility]DI [facility] ([place]A) - 10/02/2017 3:24 PM CDT Ciara Lehman MD LAB BLOOD ORDERABLES Final Resul t Performing Organization Address City/[facility]/ZIP Co de Phone Number MADDI HOFF ([place]) 1 [facility] [place] [address] * (ABNORMAL) Glucose POC (10/02/2017 11:08 AM CDT) Glucose, POC 233(H) 71 - 98 mg/dL MADDI [facility] ([place]) Blood specimen (specimen) 10/02/2017 11:08 AM CDT 10/02/2017 11:08 AM CDT Narrative MADDI [facility]OFF ([place]) - 10/02/2017 11:09 AM CDT Ciara Lehman MD POINT OF CARE TEST ORDERABLES Fi nal Result Performing Organization Address [facility] Co de Phone Number MADDI HOFF ([place]) [address] [place] [address] [place] [address] * (ABNORMAL) Glucose POC (10/02/2017 8:10 AM CDT) Glucose, POC 126(H) 71 - 98 mg/dL M[facility]DI [facility] ([place]) Blood specimen (specimen) 10/02/2017 8:10 AM CDT 10/02/2017 8:10 AM CDT Narrative MADDI [facility]OFF ([place]) - 10/02/2017 8:32 AM CDT Ciara Lehman MD POINT OF CARE TEST ORDERABLES Fi nal Result Performing Organization Address [facility]/ZIP Co de Phone Number MADDI HOFF ([place]) 1 [facility] [place] [address] * eGFR (10/02/2017 4:14 AM CDT) eGFR >60 mL/min/1.7 3 m2 MADDI [facility]OFF ([place]) Comment: Interpretive Data Reference Interval Normal ?>/= 90 mL/min/1.73m2 Mildly decreased* ? 60 - 89 mL/min/1.73m2 Mildly to moderately decreased ?45 - 59 mL/min/1.73m2 Moderately to severely decreased ??30 - 44 mL/min/1.73m2 Severely decreased ?15 - 29 mL/min/1.73m2 Kidney Failure ?< 15 ??mL/min/1.73m2 *Relative to young adult level If -Irish multiply value by 1.16. Estimated glomerular filtration [...] was last reviewed 2015. Blood specimen (specimen) 10/02/2017 4:14 AM CDT 10/02/2017 4:55 AM CDT Narrative [facility] ([place]) - 10/02/2017 5:44 AM CDT us Ciara Lehman MD LAB BLOOD ORDERABLES Final Resul t [facility] ([place]) 1 [facility] [place] [address] * Differential, auto (10/02/2017 4:14 AM CDT) Neutrophil abs 5.0 1.7 - 6.5 K/cumm [facility] ([place]) Imm gran abs 0.0 0.0 - 0.1 K/cumm [facility] ([place]) Lymphocyte abs 1.5 0.8 - 3.3 K/cumm [facility] ([place]) Monocyte abs 0.8 0.2 - 0.8 K/cumm [facility] ([place]) Eosinophil abs 0.3 0.0 - 0.5 K/cumm [facility] ([place]) Basophil abs 0.0 0.0 - 0.1 K/cumm [facility] ([place]) Neutrophil pct 65.2 % [facility] ([place]) Comment: Interpretive Data Percent cell count reference ranges are not reported, since discordance with absolute values may lead to misinterpretation of CBC data. Current Interpretive Data was last revised on 2017. Imm gran pct 0.3 % [facility] ([place]) Comment: Interpretive Data Percent cell count reference ranges are not reported, since discordance with absolute values may lead to misinterpretation of CBC data. Current Interpretive Data was last revised on 2017. Lymphocyte pct 19.8 % [facility] ([place]) Comment: Interpretive [...] was last revised on 2017. Eosinophil pct 3.5 % [facility] ([place]) Comment: Interpretive Data Percent cell count reference ranges are not reported, since discordance with absolute values may lead to misinterpretation of CBC data. Current Interpretive Data was last revised on 2017. Basophil pct 0.7 % [facility] ([place]) Comment: Interpretive Data Percent cell count reference ranges are not reported, since discordance with absolute values may lead to misinterpretation of CBC data. Current Interpretive Data was last revised on 2017. Blood specimen (specimen) 10/02/2017 4:14 AM CDT 10/02/2017 4:56 AM CDT Narrative ANNA MARIEKIRSTIN HOFF (ARAB[place]LLA) - 10/02/2017 5:02 AM CDT us Ciara Lehman MD LAB BLOOD ORDERABLES Final Resul t ANNA MARIEKIRSTIN HOFF ([place]) 1 [facility] [place] [address] * Phosphorus (10/02/2017 4:14 AM CDT) Pathologist [facility] Phosphorus, pl 3.4 2.3 - 4.5 mg/dL MADDI [facility]OFF (ARABELLA) Blood specimen (specimen) 10/02/2017 4:14 AM CDT 10/02/2017 4:55 AM CDT Narrative MDADI HOFF ([place]A) - 10/02/2017 5:44 AM CDT Ciara Lehman MD LAB BLOOD ORDERABLES Final Resul t MADDI [facility] ([place]) 1 [facility] [place] [address] * Magnesium (10/02/2017 4:14 AM CDT) [facility] Magnesium 2.2 1.6 - 2.4 mg/dL [facility] (ARABELLA) Blood specimen (specimen) 10/02/2017 4:14 AM CDT 10/02/2017 4:55 AM CDT Narrative MADDI HOFF ([place]A) - 10/02/2017 5:44 AM CDT Ciara Lehman MD LAB BLOOD ORDERABLES Final Resul t MADDI [facility]OFF ([place]) 1 [facility] [place] [address] * (ABNORMAL) Basic metabolic panel (10/02/2017 4:14 AM CDT) Pathologist [facility] Sodium 145 135 - 145 mmol/L [facility] ([place]A) Potassium, pl 2.9(C) 3.3 - 4.9 mmol/L [facility] (ARABELLA) Comment:Critical result call ed to and read back by dionne daugherty ([facility]) on 10/02/2017 05:44:00 CDT to yudy benito. Chloride 104 97 - 110 mmol/L [facility] ([place]) CO2 32 22 - 32 mmol/L [facility] ([place]) BUN 18 8 - 25 mg/dL [facility] ([place]) Glucose 152 70 - 199 mg/dL [facility] ([place]) [...] interpretive data was last revised 2017. Creatinine 0.90 0.60 - 1.10 mg/dL [facility] ([place]) Calcium 9.8 8.5 - 10.3 mg/dL [facility] ([place]) Anion gap 9 2 - 15 mmol/L [facility] ([place]) Blood specimen (specimen) 10/02/2017 4:14 AM CDT 10/02/2017 4:55 AM CDT Narrative [facility] ([place]) - 10/02/2017 5:44 AM CDT us Ciara Lehman MD LAB BLOOD ORDERABLES Final Resul t [facility] ([place]) 1 [facility] [place] [address] * (ABNORMAL) CBC with auto differential (10/02/2017 4:14 AM CDT) WBC 7.6 3.8 - 9.9 K/cumm [facility] ([place]) RBC 4.81 3.90 - 5.20 M/cumm [facility] ([place]) Hgb 11.2(L) 11.9 - 15.5 g/dL [facility] ([place]) Hct 36.6 35.6 - 45.5 % [facility] ([place]) MCV 76.1(L) 81.3 - 96.4 fL [facility] ([place]) MCH 23.3(L) 27.1 - 33.3 pg [facility] ([place]) MCHC 30.6(L) 32.3 - 35.7 g/dL [facility] ([place]) RDW CV 20.5(H) 11.1 - 14.9 % [facility] ([place]) RDW SD 54.6(H) 35.7 - 48.1 fL [facility] ([place]) Plt 357 150 - 400 K/cumm [facility] ([place]) MPV 10.3 9.1 - 12.3 fL [facility] ([place]) NRBC abs 0.00 0.00 - 0.01 K/cumm [facility] ([place]) Blood specimen (specimen) 10/02/2017 4:14 AM CDT 10/02/2017 4:56 AM CDT Narrative [facility] ([place]) - 10/02/2017 5:02 AM CDT us Ciara Lehman MD LAB BLOOD ORDERABLES Final Resul t Performing Organization Address City/[facility]/ZIP Co de Phone Number MADDI HOFF ([place]A) 1 [facility] [place] [address] * (ABNORMAL) Glucose POC (10/02/2017 2:02 AM CDT) [facility] Glucose, POC 191(H) 71 - 98 mg/dL [facility] ([place]) Blood specimen (specimen) 10/02/2017 2:02 AM CDT 10/02/2017 2:02 AM CDT Narrative [facility] ([place]) - 10/02/2017 2:03 AM CDT us Maria Del Rosario Vences MD POINT OF CARE TEST ORDERABLES Fi nal Result MADDI HOFF ([place]) 1 [facility] [place] [address] * Troponin T (10/02/2017 12:10 AM CDT) [facility] Troponin T <0.01 0.00 - 0.06 ng/mL AMDDI HOFF (ARABELLA) Comment: Interpretive Data Troponin table: ? Negative ? 0.00-0.06 ng/ml ? Indeterminate ?0.07-0.10 ng/ml ? Consistent with Myocardial Injury ?Greater than 0.10 ng/ml ?? Current interpretive data was last revised on 2014 Blood specimen (specimen) 10/02/2017 12:10 AM CDT 10/02/2017 12:20 AM CDT Narrative MADDI [facility]OFF ([place]) - 10/02/2017 12:47 AM CDT us Ciara Lehman MD LAB BLOOD ORDERABLES Final Resul t Performing Organization Address [facility] de Phone Number MADDI HOFF ([place]LLA) [address] [place] [address] [place] [address] * (ABNORMAL) Glucose POC (10/01/2017 9:19 PM CDT) [facility] Glucose, POC 153(H) 71 - 98 mg/dL MADDI ULIS EDUARDO (ARABELLA) Blood specimen (specimen) 10/01/2017 9:19 PM CDT 10/01/2017 9:19 PM CDT Narrative MADDI HOFF ([place]A) - 10/01/2017 9:22 PM CDT us Maria Del Rosario Vences MD POINT OF CARE TEST ORDERABLES Fi nal Result Performing Organization Address [facility] Co de Phone Number MADDI HOFF (AR[place]ELLA) 1 [facility] [place] [address] * (ABNORMAL) Glucose POC (10/01/2017 4:58 PM CDT) [facility] Glucose, POC 135(H) 71 - 98 mg/dL MADDI [facility]OFF (AR[place]ELLA) Blood specimen (specimen) 10/01/2017 4:58 PM CDT 10/01/2017 4:58 PM CDT Narrative MADDI [facility]OFF ([place]A) - 10/01/2017 5:00 PM CDT Ciara Lehman MD POINT OF CARE TEST ORDERABLES Fi nal Result MADDI HOFF ([place]) 1 [facility] [place] [address] * Troponin T (10/01/2017 2:28 PM CDT) [facility] Troponin T <0.01 0.00 - 0.06 ng/mL MADDI HOFF ([place]) Comment: Interpretive Data Troponin table: ? Negative ? 0.00-0.06 ng/ml ? Indeterminate ?0.07-0.10 ng/ml ? Consistent with Myocardial Injury ?Greater than 0.10 ng/ml ?? Current interpretive data was last revised on 2014 Blood specimen (specimen) 10/01/2017 2:28 PM CDT 10/01/2017 3:57 PM CDT Narrative MADDI HOFF ([place]) - 10/01/2017 4:24 PM CDT Ciara Lehman MD LAB BLOOD ORDERABLES Final Resul t MADDI [facility]OFF ([place]) 1 [facility] [place] [address] * eGFR (10/01/2017 2:28 PM CDT) eGFR >60 mL/min/1.7 3 m2 MADDI OHFF (ARABELLA) Comment: Interpretive Data Reference Interval Normal ?>/= 90 mL/min/1.73m2 Mildly decreased* ? 60 - 89 mL/min/1.73m2 Mildly to moderately decreased ?45 - 59 mL/min/1.73m2 Moderately to severely decreased ??30 - 44 mL/min/1.73m2 Severely decreased ?15 - 29 mL/min/1.73m2 Kidney Failure ?< 15 ??mL/min/1.73m2 *Relative to young adult level If -Irish multiply value by 1.16. Estimated glomerular filtration [...] was last reviewed 2015. Blood specimen (specimen) 10/01/2017 2:28 PM CDT 10/01/2017 2:36 PM CDT Narrative ANNA MARIEKIRSTIN HOFF ([place]A) - 10/01/2017 2:52 PM CDT us Maria Del Rosario Vences MD LAB BLOOD ORDERABLES Final Resul t MADDI LUIS EDUARDO ([place]A) 1 [facility] [place] [address] * (ABNORMAL) Basic metabolic panel (10/01/2017 2:28 PM CDT) Pathologist [facility] Sodium 140 135 - 145 mmol/L MADDI HOFF ([place]) Potassium, pl 3.2(L) 3.3 - 4.9 mmol/L [facility] ([place]) Chloride 98 97 - 110 mmol/L [facility] ([place]) CO2 31 22 - 32 mmol/L [facility] ([place]) BUN 18 8 - 25 mg/dL [facility] ([place]) Glucose 180 70 - 199 mg/dL [facility] ([place]) Comment: Interpretive Data Fasting [...] interpretive data was last revised 2017. Creatinine 0.90 0.60 - 1.10 mg/dL [facility] ([place]) Calcium 9.9 8.5 - 10.3 mg/dL [facility] ([place]) Anion gap 11 2 - 15 mmol/L [facility] ([place]) Blood specimen (specimen) 10/01/2017 2:28 PM CDT 10/01/2017 2:36 PM CDT Narrative [facility] ([place]) - 10/01/2017 2:52 PM CDT us Maria Del Rosario Vences MD LAB BLOOD ORDERABLES Final Resul t MADDI HOFF ([place]) 1 [facility] [place] [address] * (ABNORMAL) Glucose POC (10/01/2017 12:01 PM CDT) Glucose, POC 158(H) 71 - 98 mg/dL [facility] ([place]) Blood specimen (specimen) 10/01/2017 12:01 PM CDT 10/01/2017 12:01 PM CDT Narrative [facility] ([place]) - 10/01/2017 12:04 PM CDT Ciara Lehman MD POINT OF CARE TEST ORDERABLES Fi nal Result MADDI HOFF ([place]) 1 [facility] [place] [address] * (ABNORMAL) Glucose POC (10/01/2017 7:50 AM CDT) Glucose, POC 117(H) 71 - 98 mg/dL MADDI [facility]OFF ([place]) Blood specimen (specimen) 10/01/2017 7:50 AM CDT 10/01/2017 7:50 AM CDT Narrative MADDI HOFF ([place]) - 10/01/2017 7:51 AM CDT Ciara Lehman MD POINT OF CARE TEST ORDERABLES Fi nal Result Performing Organization Address City/[facility] Co de Phone Number MADDI HOFF ([place]) [address] [place] [address] [place] [address] * eGFR (10/01/2017 12:20 AM CDT) eGFR >60 mL/min/1.7 3 m2 MADDI HOFF ([place]) Comment: Interpretive Data Reference Interval Normal ?>/= 90 mL/min/1.73m2 Mildly decreased* ? 60 - 89 mL/min/1.73m2 Mildly to moderately decreased ?45 - 59 mL/min/1.73m2 Moderately to severely decreased ??30 - 44 mL/min/1.73m2 Severely decreased ?15 - 29 mL/min/1.73m2 Kidney Failure ?< 15 ??mL/min/1.73m2 *Relative to young adult level If -Irish multiply value by 1.16. Estimated glomerular filtration [...] was last reviewed 2015. Blood specimen (specimen) 10/01/2017 12:20 AM CDT 10/01/2017 12:45 AM CDT Narrative [facility] ([place]) - 10/01/2017 1:12 AM CDT us Felix Martinez DO LAB BLOOD ORDERABLES Final Result [facility] ([place]) 1 [facility] [place] [address] * Basic metabolic panel (10/01/2017 12:20 AM CDT) Sodium 143 135 - 145 mmol/L [facility] ([place]) Potassium, pl 3.5 3.3 - 4.9 mmol/L [facility] ([place]) Chloride 101 97 - 110 mmol/L [facility] ([place]) CO2 27 22 - 32 mmol/L [facility] ([place]) BUN 19 8 - 25 mg/dL [facility] ([place]) Glucose 171 70 [...] interpretive data was last revised 2017. Creatinine 0.78 0.60 - 1.10 mg/dL [facility] ([place]) Calcium 9.9 8.5 - 10.3 mg/dL [facility] ([place]) Anion gap 15 2 - 15 mmol/L [facility] ([place]) Blood specimen (specimen) 10/01/2017 12:20 AM CDT 10/01/2017 12:45 AM CDT Narrative [facility] ([place]) - 10/01/2017 1:12 AM CDT us Felix Martinez DO LAB BLOOD ORDERABLES Final Result [facility] ([place]) 1 [facility] [place] [address] * (ABNORMAL) Urinalysis reflex to microscopic and culture Urine, clean voided (09/30/2017 9:58 PM CDT) Color, ur Yellow Yellow [facility] ([place]) Clarity, ur Clear Clear [facility] ([place]) Specific gravity, ur 1.019 1.010 - 1.025 [facility] ([place]) pH, urine 6.5 [facility] ([place]) Protein, ur ql Negative Negative [facility] ([place]) Glucose, ur ql 3+(A) Negative [facility] ([place]) Ketones, ur Trace Negative [facility] ([place]) Bilirubin, ur Negative Negative [facility] ([place]) Blood, ur Negative Negative [facility] ([place]) Urobilinogen, ur 0.2 mg/dL [facility] ([place]) Nitrite, ur Negative Negative [facility] ([place]) Leukocyte esterase, ur Negative Negative [facility] ([place]) Urine, clean voided 09/30/2017 9:58 PM CDT 09/30/2017 10:02 PM CDT Narrative [facility] ([place]) - 09/30/2017 10:19 PM CDT ?? Urine pH is affected by diet, medications, systemic acid-base disturbances, and renal tubular function. ??pH may affect urinary stone formation. ??For example, urine pH below 6.0 may help reduce the tendency for calcium phosphate stones and pH greater than 6.0 may reduce the tendency for uric acid stone formation. Source: [facility]. Last revised 05-29-2017 Felix Martinez DO LAB MICROBIOLOGY - GENERAL ORDERABLES Final Result MADDI [facility]) 1 [facility] [place] [address] * ECG 12 lead (09/30/2017 8:35 PM CDT) Pathologist [facility] Patient age 76 years [facility] Interpretation Text SINUS RHYTHMMARKED LEFT AXIS DEVIATIONMODERATE INTRAVENTRICULAR CONDUCTION DELAYMODERATE ST DEPRESSIONABNORMAL ECGPREVIOUS TRACIN02/12/2016 09.18No significant change compared to prior ECG [facility] Comment:Physician Interprete r Dr. Nelson Corona M.D. Ventricular Rate EKG/Min 81 /min [facility] P Wave Duration 115 ms [facility] QRS-Interval (MSEC) 126 ms [facility] GA-Interval (MSEC) 127 ms [facility] QT Interval 432 ms [facility] QTc 468 ms [facility] QTC Interval ms [facility] P [place] 193 deg [facility] QRS [place] -36 deg [facility] T [place] 67 deg [facility] 09/30/2017 8:35 PM CDT Felix Martinez DO ECG ORDERABLES Final Resul t Performing Organization Address [facility] Co de Phone Number [facility] * eGFR (09/30/2017 8:24 PM CDT) Pathologist [facility] eGFR >60 mL/min/1.7 3 m2 [facility]ADDI [facility] (ARABELLA) Comment: Interpretive Data Reference Interval Normal ?>/= 90 mL/min/1.73m2 Mildly decreased* ? 60 - 89 mL/min/1.73m2 Mildly to moderately decreased ?45 - 59 mL/min/1.73m2 Moderately to severely decreased ??30 - 44 mL/min/1.73m2 Severely decreased ?15 - 29 mL/min/1.73m2 Kidney Failure ?< 15 ??mL/min/1.73m2 *Relative to young adult level If -Irish multiply value by 1.16. Estimated glomerular filtration [...] was last reviewed 2015. Blood specimen (specimen) 09/30/2017 8:24 PM CDT 09/30/2017 9:01 PM CDT Narrative [facility] ([place]) - 09/30/2017 9:41 PM CDT Felix Martinez DO LAB BLOOD ORDERABLES Final Result [facility]IEKIRSTIN [facility] ([place]) 1 [facility] [place] [address] * (ABNORMAL) Differential, auto (09/30/2017 8:24 PM CDT) Neutrophil abs 12.8(H) 1.7 - 6.5 K/cumm [facility] ([place]) Imm gran abs 0.1 0.0 - 0.1 K/cumm [facility] ([place]) Lymphocyte abs 0.7(L) 0.8 - 3.3 K/cumm [facility] ([place]) Monocyte abs 1.3(H) 0.2 - 0.8 K/cumm [facility] ([place]) Eosinophil abs 0.1 0.0 - 0.5 K/cumm [facility] ([place]) Basophil abs 0.0 0.0 - 0.1 K/cumm [facility] ([place]) Neutrophil pct 85.1 % [facility] ([place]) Comment: Interpretive Data Percent cell count reference ranges are not reported, since discordance with absolute values may lead to misinterpretation of CBC data. Current Interpretive Data was last revised on 2017. Imm gran pct 0.5 % [facility] ([place]) Comment: Interpretive Data Percent cell count reference ranges are not reported, since discordance with absolute values may lead to misinterpretation of CBC data. Current Interpretive Data was last revised on 2017. Lymphocyte pct 4.8 % [facility] ([place]) Comment: Interpretive Data Percent cell count reference ranges are not reported, since discordance with absolute values may lead to misinterpretation of CBC data. Current Interpretive Data was last revised on 2017. Monocyte pct 8.9 % [facility]DI [facility] ([place]) Comment: Interpretive Data Percent cell count reference ranges are not reported, since discordance with absolute values may lead to misinterpretation of CBC data. Current Interpretive Data was last revised on 2017. Eosinophil pct 0.4 % [facility] ([place]) Comment: Interpretive [...] last revised on 2017. Blood specimen (specimen) 09/30/2017 8:24 PM CDT 09/30/2017 9:01 PM CDT Narrative M[facility]DI [facility] ([place]) - 09/30/2017 9:03 PM CDT us Felix Martinez DO LAB BLOOD ORDERABLES Final Result M[facility]DI [facility] ([place]) 1 [facility] [place] [address] * Troponin T (09/30/2017 8:24 PM CDT) Troponin T <0.01 0.00 - 0.06 ng/mL MADDI [facility] ([place]) Comment: Interpretive Data Troponin table: ? Negative ? 0.00-0.06 ng/ml ? Indeterminate ?0.07-0.10 ng/ml ? Consistent with Myocardial Injury ?Greater than 0.10 ng/ml ?? Current interpretive data was last revised on 2014 Blood specimen (specimen) 09/30/2017 8:24 PM CDT 09/30/2017 9:01 PM CDT Narrative MADDI [facility] ([place]) - 09/30/2017 9:41 PM CDT Felix Martinez DO LAB BLOOD ORDERABLES Edited Result - Final Performing Organization Address City/[facility]/ZIP Co de Phone Number MADDI [facility] ([place]) 1 [facility] [place] [address] * aPTT (09/30/2017 8:24 PM CDT) aPTT 27.4 25.0 - 37.0 sec [facility] ([place]) Blood specimen (specimen) 09/30/2017 8:24 PM CDT 09/30/2017 9:01 PM CDT Narrative M[facility]DI [facility] ([place]) - 09/30/2017 9:21 PM CDT Felix Martinez DO LAB BLOOD ORDERABLES Final Result MADDI [facility] ([place]) 1 [facility] [place] [address] * Protime-INR (09/30/2017 8:24 PM CDT) PT 11.4 9.5 - 13.0 sec [facility] ([place]) INR 1.01 0.90 - 1.20 [facility] ([place]) Comment: Interpretive Data Recommended ranges for Protime INR: 2.0 - 3.0 Most indications for Warfarin therapy (e.g. Treatment of DVT, PE, bioprosthetic valve replacement, prophylaxis venous thrombosis, atrial fibrillation). 2.5 - 3.5 Mechanical mitral valve or dual mechanical mitral and Aortic valve replacement. Current Interpretive Data was last revised on 2015. Blood specimen (specimen) 09/30/2017 8:24 PM CDT 09/30/2017 9:01 PM CDT Narrative MADDI [facility]OFF ([place]) - 09/30/2017 9:21 PM CDT us Felix Martinez DO LAB BLOOD ORDERABLES Final Result MADDI [facility] ([place]) 1 [facility] [place] [address] * Pro B-type natriuretic peptide (09/30/2017 8:24 PM CDT) NT-proBNP 82 10 - 280 pg/mL [facility] ([place]) [...] last revised on 2014. Blood specimen (specimen) 09/30/2017 8:24 PM CDT 09/30/2017 9:01 PM CDT Narrative M[facility]DI [facility] ([place]) - 09/30/2017 9:41 PM CDT us Felix Martinez DO LAB BLOOD ORDERABLES Final Result MADDI [facility] ([place]) 1 [facility] [place] [address] * (ABNORMAL) Comprehensive metabolic panel (09/30/2017 8:24 PM CDT) Sodium 138 135 - 145 mmol/L [facility] ([place]) Potassium, pl 2.7(C) 3.3 - 4.9 mmol/L [facility] ([place]) Comment:Critical result call ed to and read back by CAROL COLE (ER) on 09/30/2017 21:41:26 CDT to CHRIS LUND. CO2 26 22 - 32 mmol/L [facility] ([place]LLA) BUN 18 8 - 25 mg/dL [facility] ([facility]) Glucose 127 70 - 199 mg/dL [facility] Comment: Interpretive Data Fasting [...] interpretive data was last revised 2017. Creatinine 0.84 0.60 - 1.10 mg/dL [facility] ([place]A) Calcium 9.9 8.5 - 10.3 mg/dL [facility] ([facility]) Chloride 97 97 - 110 mmol/L [facility] ([facility]) Albumin 4.1 3.5 - 5.0 g/dL [facility] ([place]) AST 14 10 - 45 Units/L [facility] ([place]) ALT 15 7 - 45 Units/L [facility] ([place]) Alk phos 93 40 - 130 Units/L [facility] ([place]A) Bilirubin, total <0.2 0.1 - 1.2 mg/dL [facility] ([place]) Protein, pl 6.6 6.5 - 8.5 g/dL [facility] ([place]) Anion gap 15 2 - 15 mmol/L [facility] ([facility]) Blood specimen (specimen) 09/30/2017 8:24 PM CDT 09/30/2017 9:01 PM CDT Narrative [facility] (ARAB[place]LLA) - 09/30/2017 9:41 PM CDT us Felix Martinez DO LAB BLOOD ORDERABLES Final Result [facility] (ARABELLA) 1 [facility] Department [place] [address] * (ABNORMAL) CBC with auto differential (09/30/2017 8:24 PM CDT) WBC 15.1(H) 3.8 - 9.9 K/cumm [facility] ([facility]) RBC 5.18 3.90 - 5.20 M/cumm [facility] ([facility]) Hgb 11.9 11.9 - 15.5 g/dL [facility] ([facility]) Hct 39.5 35.6 - 45.5 % [facility] ([facility]) MCV 76.3(L) 81.3 - 96.4 fL [facility] ([facility]) MCH 23.0(L) 27.1 - 33.3 pg [facility] ([facility]) MCHC 30.1(L) 32.3 - 35.7 g/dL [facility] ([facility]) RDW CV 20.8(H) 11.1 - 14.9 % [facility] ([facility]) RDW SD 55.2(H) 35.7 - 48.1 fL [facility] ([facility]) Plt 384 150 - 400 K/cumm [facility] ([facility]) MPV 10.3 9.1 - 12.3 fL [facility] ([facility]) NRBC abs 0.00 0.00 - 0.01 K/cumm [facility] ([facility]) Blood specimen (specimen) 09/30/2017 8:24 PM CDT 09/30/2017 9:01 PM CDT Narrative [facility] ([facility]) - 09/30/2017 9:03 PM CDT us Felix Martinez DO LAB BLOOD ORDERABLES Final Result [facility] ([facility]) [facility] Department [place] [address] * XR Chest 1 Vw Portable (09/30/2017 8:17 PM CDT) Anatomical Region Laterality Modality Body, Chest N/A Computed Radiogr aphy Impressions 09/30/2017 8:28 PM CDT 1. ??Cardiomegaly. 2. ??Mild congestion/edema. Electronically signed by: Bradley Suresh M.D. Narrative 09/30/2017 8:28 PM CDT EXAM: Chest; AP portable at 2014 HISTORY: weakness. COMPARISON: 06/14/2016 FINDINGS: The heart appears enlarged. ??Mild congestion/edema is noted. ??No pneumothorax or pleural effusions are seen. Procedure Note Bradley Suresh MD - 09/30/2017 EXAM: Chest; AP portable at 2014 HISTORY: weakness. COMPARISON: 06/14/2016 FINDINGS: The heart appears enlarged. Mild congestion/edema is noted. No pneumothorax or pleural effusions are seen. IMPRESSION: 1. Cardiomegaly. 2. Mild congestion/edema. Electronically signed by: Bradley Suresh M.D. us Felix Martinez DO IMG XR PROCEDURES Final Res ult * Magnesium (09/30/2017 8:09 PM CDT) Magnesium 2.3 1.6 - 2.4 mg/dL [facility] ([facility]) Blood specimen (specimen) 09/30/2017 8:09 PM CDT 09/30/2017 11:34 PM CDT Narrative [facility] ([facility]) - 10/01/2017 12:02 AM CDT Felix Martinez DO LAB BLOOD ORDERABLES Final Result [facility] ([facility]) 1 [facility] Department [place] [address] documented in this encounter Visit Diagnoses Diagnosis Hypokalemia- Primary Hypopotassemia Hypokalemia Hypopotassemia Atrial fibrillation, unspecified type (HCC) Chronic diastolic congestive heart failure (CMS/HCC) (HCC) Generalized weakness Pure hypercholesterolemia PAF (paroxysmal atrial fibrillation) (CMS/HCC) (HCC) Atrial fibrillation Breast cancer (HCC) Malignant neoplasm of breast (female), unspecified site Generalized weakness Nausea & vomiting Nausea with vomiting Lymphedema of both lower extremities DM (diabetes mellitus) (HCC) Type II or unspecified type diabetes mellitus without mention of complication, not stated as uncontrolled Chronic ischemic heart disease Unspecified chronic ischemic heart disease CATY on CPAP Chronic diastolic congestive heart failure (CMS/HCC) (HCC) documented in this encounter Administered Medications Inactive Administered Medications - up to 3 most recent administrations Medication Order MAR Action Action Date Dose Rate Site amitriptyline (ELAVIL) tablet 25 mg 25 mg, oral, Nightly, First dose on Fri10/01/17 at 2100 Given 10/02/2017 10:06 PM CDT 25 mg Given 10/01/2017 9:25 PM CDT 25 mg anastrozole (ARIMIDEX) tablet 1 mg 1 mg, oral, Nightly, First dose on Fri10/01/17 at 2100, Indications: prevention of breast cancer in high risk womenIndications:prevention of breast cancer in high risk women Given 10/02/2017 10:06 PM CDT 1 mg Given 10/01/2017 9:25 PM CDT 1 mg aspirin enteric coated tablet 81 mg 81 mg, oral, Daily, First dose on Fri10/01/17 at 0900, Do not crush or chew Given 10/03/2017 10:31 AM CDT 81 mg Given 10/02/2017 8:48 AM CDT 81 mg Given 10/01/2017 8:27 AM CDT 81 mg bisacodyl EC (DULCOLAX EC) tablet 10 mg 10 mg, oral, Daily PRN, constipation, If no results 24 hours after milk of magnesia, Starting on Fri10/01/17 at 0650, Do not crush or chew clopidogrel (PLAVIX) tablet 75 mg 75 mg, oral, Daily, First dose on Fri10/01/17 at 0900 Given 10/03/2017 10:31 AM CDT 75 mg Given 10/02/2017 8:49 AM CDT 75 mg Given 10/01/2017 8:27 AM CDT 75 mg cyanocobalamin (Vitamin B-12) tablet 1,000 mcg 1,000 mcg, oral, Daily, First dose on Fri10/01/17 at 0900 Given 10/03/2017 10:32 AM CDT 1,000 mcg Given 10/02/2017 8:49 AM CDT 1,000 mcg Given 10/01/2017 8:27 AM CDT 1,000 mcg empagliflozin (JARDIANCE) tablet 10 mg 10 mg, oral, Daily, First dose on Fri10/01/17 at 0900 Given 10/03/2017 10:31 AM CDT 10 mg Given 10/02/2017 8:50 AM CDT 10 mg Given 10/01/2017 8:27 AM CDT 10 mg enoxaparin (LOVENOX) syringe 40 mg 40 mg, subcutaneous, Daily (for enoxaparin), First dose on Fri10/01/17 at 2100, Indications: Deep Vein Thrombosis PreventionIndications:Deep Vein Thrombosis Prevention Given 10/02/2017 10:07 PM CDT 40 mg Left Upper Abdomen Given 10/01/2017 9:26 PM CDT 40 mg Le ft Lower Abdomen flecainide (TAMBOCOR) tablet 50 mg 50 mg, oral, 2 times daily, First dose on Fri10/01/17 at 0900 Given 10/03/2017 10:31 AM CDT 50 mg Given 10/02/2017 10:02 PM CDT 50 mg Given 10/02/2017 8:52 AM CDT 50 mg furosemide (LASIX) injection 40 mg 40 mg, intravenous, Once, On Fri09/30/17 at 2145, For 1 dose, Room temperature only Given 09/30/2017 9:40 PM CDT 40 m g furosemide (LASIX) tablet 40 mg 40 mg, oral, Daily, First dose on Fri10/01/17 at 1600, Indications: EdemaIndications:Edema Given 10/03/2017 10:3 0 AM CDT 40 mg Given 10/02/2017 8:48 AM CDT 40 mg Given 10/01/2017 4:09 PM CDT 40 mg insulin aspart U-100 (NovoLOG) injection 1-2 Units 1-2 Units, subcutaneous, Nightly, First dose on Fri10/01/17 at 2100, Blood Sugar Low Dose PM - PO patients 200 or less No Insulin 201 - 250 1 unit 251 - 299 2 units Greater than 299 Call MD for hyperglycemia management instructions Do NOT hold for NPO status., Indications: Diabetes MellitusIndications:Diabetes Mellitus Given 10/02/2017 10:05 PM CDT 1 Units Right Upper Arm insulin aspart U-100 (NovoLOG) injection 1-3 Units 1-3 Units, subcutaneous, 3 times daily with meals, First dose on Fri10/01/17 at 0800, Blood Sugar Low Dose meal time - PO patients 175 or less No Insulin 176 - 200 1 unit 201 - 250 2 units 251 - 299 3 units Greater than 299 Call MD for hyperglycemia management instructions Do NOT hold for NPO status., Indications: Diabetes MellitusIndications:Diabetes Mellitus Given 10/02/2017 12:27 PM CDT 2 Units Left Upper Arm insulin glargine (LANTUS) pen injection 6 Units 6 Units, subcutaneous, Nightly, First dose on Fri10/01/17 at 2100, Do not mix with other insulins Given 10/01/2017 9:29 PM CDT 6 Units Left Upper Arm insulin glargine (LANTUS) pen injection 8 Units 8 Units, subcutaneous, Nightly, First dose (after last modification) on Fri10/02/17 at 2100, Do not mix with other insulins Given 10/02/2017 10:04 PM CDT 8 Units Right Upper Arm latanoprost (XALATAN) 0.005 % ophthalmic solution 1 drop 1 drop, each eye, Nightly, First dose on Fri10/01/17 at 2100 Given 10/02/2017 10:06 PM CDT 1 drop Given 10/01/2017 9:30 PM CDT 1 drop linaclotide (LINZESS) capsule 72 mcg 72 mcg, oral, Daily before breakfast, First dose on Fri10/01/17 at 0730, Indications: chronic idiopathic constipationIndications:chronic idiopathic constipation Given 10/03/2017 10:33 AM CDT 72 mcg Given 10/02/2017 8:54 AM CDT 72 mcg Given 10/01/2017 6:54 AM CDT 72 mcg magnesium hydroxide (MILK OF MAGNESIA) 80 mg/mL oral suspension 30 mL 30 mL, oral, Daily PRN, constipation, Starting on Fri10/01/17 at 0650 mineral oil (FLEET MINERAL OIL) enema 1 enema 1 enema, rectal, Daily PRN, constipation, if no results 24 hours after bisacodyl, Starting on Fri10/01/17 at 0650, Indications: constipationIndications:constipation ondansetron (ZOFRAN) injection 4 mg 4 mg, intravenous, Every 6 hours PRN, nausea, vomiting, if not tolerating PO, Starting on Fri10/01/17 at 0538, Indications: Nausea and VomitingIndications:Nausea and Vomiting Given 10/01/2017 6:42 AM CDT 4 mg ondansetron ODT (ZOFRAN-ODT) disintegrating tablet 4 mg 4 mg, oral, Every 6 hours PRN, nausea, vomiting, Starting on Fri10/01/17 at 0538, Indications: Nausea and VomitingIndications:Nausea and Vomiting pantoprazole DR (PROTONIX) extended release tablet 40 mg 40 mg, oral, Daily, First dose on Fri10/01/17 at 0900, Do not crush or chew, Indications: Treatment of Non-Bleeding Gastric DisorderIndications:Treatment of Non-Bleeding Gastric Disorder Given 10/03/2017 10:32 AM CDT 40 mg Given 10/02/2017 8:49 AM CDT 40 mg Given 10/01/2017 8:27 AM CDT 40 mg potassium chloride (KAYCIEL) 1.3 mEq/mL oral liquid 40 mEq 40 mEq, oral, Once, On Fri09/30/17 at 2200, For 1 dose, Recommend to dilute each 15 mL with at least 6 ounces of water or juice prior to administration. Given 09/30/2017 10:09 PM CDT 40 mEq potassium chloride 20 mEq in sodium chloride 0.9% 250 mL IVPB 20 mEq, intravenous, at 130 mL/hr, Administer over 2 Hours, Once, On Fri09/30/17 at 2215, For 1 dose, Indications: hypokalemiaIndications:hypokalem ia Restarted 10/01/2017 12:45 AM CDT 20 mEq 130 mL/hr New Bag 09/30/2017 10:42 PM CDT 20 mEq 130 mL/hr potassium chloride ER (KLOR-CON,K-DUR) extended release tablet 20 mEq 20 mEq, oral, Once, On Fri10/01/17 at 0700, For 1 dose, Do not crush or chew Given 10/01/2017 6:35 AM CDT 20 mE q potassium chloride ER (KLOR-CON,K-DUR) extended release tablet 20 mEq 20 mEq, oral, Daily, First dose on Fri10/02/17 at 0900, Do not crush or chew Given 10/02/2017 8:50 AM CDT 20 mEq potassium chloride ER (KLOR-CON,K-DUR) extended release tablet 20 mEq 20 mEq, oral, Once, On Fri10/02/17 at 0845, For 1 dose, Do not crush or chew Given 10/02/2017 8:54 AM CDT 20 mE q potassium chloride ER (KLOR-CON,K-DUR) extended release tablet 40 mEq 40 mEq, oral, Once, On Fri10/01/17 at 1630, For 1 dose, Do not crush or chew Given 10/01/2017 4:09 PM CDT 40 mE q potassium chloride ER (KLOR-CON,K-DUR) extended release tablet 40 mEq 40 mEq, oral, Once, On Fri10/02/17 at 0730, For 1 dose, Per electrolyte replacement protocol Do not crush or chew Given 10/02/2017 8:51 AM CDT 40 mEq potassium chloride ER (KLOR-CON,K-DUR) extended release tablet 40 mEq 40 mEq, oral, Once, On Fri10/02/17 at 1700, For 1 dose, Do not crush or chew Given 10/02/2017 5:04 PM CDT 40 mE q potassium chloride ER (KLOR-CON,K-DUR) extended release tablet 40 mEq 40 mEq, oral, Daily, First dose (after last modification) on Fri10/03/17 at 0900, Do not crush or chew Given 10/03/2017 12:01 PM CDT 40 mEq potassium chloride ER (KLOR-CON,K-DUR) extended release tablet 40 mEq 40 mEq, oral, Once, On Fri10/03/17 at 0900, For 1 dose, Do not crush or chew Given 10/03/2017 10:31 AM CDT 40 m Eq potassium chloride ER (KLOR-CON,K-DUR) extended release tablet 40 mEq 40 mEq, oral, Once, On Fri10/03/17 at 1700, For 1 dose, Do not crush or chew Given 10/03/2017 4:33 PM CDT 40 mE q psyllium (aspartame) SF (METAMUCIL SF) 3.4 gram packet 1 packet 1 packet, oral, 3 times daily, First dose on Fri10/01/17 at 0900, Indications: constipationIndications:constipation Given 10/03/2017 3:43 PM CDT 1 packe t Given 10/03/2017 10:32 AM CDT 1 packet Given 10/02/2017 10:03 PM CDT 1 packet rosuvastatin (CRESTOR) tablet 10 mg 10 mg, oral, Nightly, First dose on Fri10/01/17 at 2100 Given 10/02/2017 10:02 PM CDT 10 mg Given 10/01/2017 9:30 PM CDT 10 mg SITagliptin (JANUVIA) tablet 100 mg 100 mg, oral, Daily, First dose on Fri10/01/17 at 0900 Given 10/02/2017 8:49 AM CDT 100 mg Given 10/01/2017 8:27 AM CDT 100 mg SITagliptin (JANUVIA) tablet 50 mg 50 mg, oral, Daily, First dose (after last modification) on Fri10/03/17 at 0900, Dose of sitagliptin adjusted per renal protocol for CrCl=30-49 ml/min (CrCl=46.4 ml/min) Given 10/03/2017 10:31 AM CDT 50 mg sodium chloride 0.9% flush 0.5-20 mL 0.5-20 mL, intra-catheter, Every 8 hours scheduled, First dose on Fri10/01/17 at 0615, Flush volume based on line type and size. , Indications: FlushingIndications:Flushing Given 10/03/2017 2:28 PM CDT 10 mL Given 10/02/2017 10:51 PM CDT 10 mL Given 10/02/2017 3:36 PM CDT 10 mL verapamil SR (CALAN SR) extended release tablet 240 mg 240 mg, oral, Daily, First dose on Fri10/01/17 at 0900, Hold for SBP< 120 and/or HR<55 Do not crush or chew Given 10/03/2017 10:31 AM CDT 240 mg Given 10/02/2017 8:48 AM CDT 240 mg Given 10/01/2017 8:27 AM CDT 240 mg documented in this encounter Discontinued Medications Medication Sig Discontinue Reason Start Date End Da te albuterol HFA (PROAIR HFA) 90 mcg/actuation inhaler inhale 2 puff by inhalation route every 6 hours as needed Dose adjustment 08/05/2014 10/01/2017 sotalol (BETAPACE) 80 mg tablet take 1 tablet by oral route 2 times every day 02/16/2016 10/01/2017 verapamil SR (CALAN SR) 180 mg CR tablet take 1 tablet by oral route every day with food 02/16/2016 10/01/2017 potassium chloride ER (potassium chloride ER) 10 mEq CR tablet take 4 Capsule by oral route every day with food 07/01/2016 10/03/2017 furosemide (LASIX) 40 mg tablet TAKE 1 TABLET BY MOUTH EVERY DAY NEEDED 08/30/2015 10/03/2017 aspirin (ASPIR-81) 81 mg tablet take 1 tablet by oral route every day Stop Taking at Discharge 07/01/2016 10/03/2017 insulin detemir (LEVEMIR FLEXTOUCH) 100 unit/mL (3 mL) insulin pen inject by subcutaneous route per prescriber's instructions. Insulin dosing requires individualization. 10 units Stop Taking at Discharge 07/01/2016 10/03/2017 documented as of this encounter Historical Medications * This list may reflect changes made after this encounter. anastrozole (ARIMIDEX) 1 mg tabletIndications: prevention of breast cancer in high risk women Take 1 tablet (1 mg total) by mouth daily metOLazone (ZAROXOLYN) 2.5 mg tabletIndications: hypertension Take 2.5 mg by mouth once a week. 9 lubiprostone (AMITIZA) 24 mcg capsuleIndications :chronic idiopathic constipation Take 24 mcg by mouth daily with breakfast. 9 psyllium, aspartame, SF (METAMUCIL SF) 3.4 gram packetIndications: constipation Take 1 packet by mouth 3 (three) times a day. 1 tsp. TID 9 peg 400-propylene glycol (SYSTANE) 0.4-0.3 % ophthalmic solution Administer 1 drop into both eyes as needed. 9 added in this encounter Active and Recently Administered Medications Times are shown in CDT. Scheduled Medication Order 10/01/2017 10/02/2017 10/03/2017 amitriptyline (ELAVIL) tablet 25 mg 25 mg, oral, Nightly, First dose on Fri10/01/17 at 2100 2124 (Given - Provider: Jerzy Fisher RN) 2205 (Given - Provider: Nena Zamarripa RN - Comment: Pt. requested) anastrozole (ARIMIDEX) tablet 1 mg 1 mg, oral, Nightly, First dose on Fri10/01/17 at 2100, Indications: prevention of breast cancer in high risk women 2124 (Given - Provider: Jerzy Fisher RN) 2205 (Given - Provider: Nena Zamarripa RN - Comment: Pt. requested) aspirin enteric coated tablet 81 mg 81 mg, oral, Daily, First dose on Fri10/01/17 at 0900, Do not crush or chew 0827 (Given - Provider: Vinny Whaley RN) 0848 (Given - Provider: Erendira Kraus RN) 1031 (Given - Provider: Trina Quinones, DES) clopidogrel (PLAVIX) tablet 75 mg 75 mg, oral, Daily, First dose on Fri10/01/17 at 0900 0827 (Given - Provider: Vinny Whaley RN) 0849 (Given - Provider: Erendira Kraus RN) 1031 (Given - Provider: Trina Quinones, DES) cyanocobalamin (Vitamin B-12) tablet 1,000 mcg 1,000 mcg, oral, Daily, First dose on Fri10/01/17 at 0900 0827 (Given - Provider: Vinny Whaley RN) 0849 (Given - Provider: Erendira Kraus, RN) 1032 (Given - Provider: Trina Quinones, DES) empagliflozin (JARDIANCE) tablet 10 mg 10 mg, oral, Daily, First dose on Fri10/01/17 at 0900 0827 (Given - Provider: Vinny Whaley RN) 0850 (Given - Provider: Erendira Kraus, DES) 1031 (Given - Provider: Trina Quinones RN) enoxaparin (LOVENOX) syringe 40 mg 40 mg, subcutaneous, Daily (for enoxaparin), First dose on Fri10/01/17 at 2100, Indications: Deep Vein Thrombosis Prevention 2125 (Given - Provider: Jerzy Fisher RN) 2206 (Given - Provider: Nena Zamarripa, DES - Comment: pT. REQUESTED) flecainide (TAMBOCOR) tablet 50 mg 50 mg, oral, 2 times daily, First dose on Fri10/01/17 at 0900 0827 (Given - Provider: Vinny Whaley RN)2126 (Given - Provider: Jerzy Fisher RN) 0852 (Given - Provider: Erendira Kraus RN)2201 (Given - Provider: Nena Zamarripa, DES - Comment: Pt. requested) 103 (Given - Provider: Trina Quinones, DES) furosemide (LASIX) tablet 40 mg 40 mg, oral, Daily, First dose on Fri10/01/17 at 1600, Indications: Edema 1609 (Given - Provider: Manish Chavez RN) 0848 (Given - Provider: Erendira Kraus, DES) 1030 (Given - Provider: Trina Quinones, DES) insulin aspart U-100 (NovoLOG) injection 1-2 Units 1-2 Units, subcutaneous, Nightly, First dose on Fri10/01/17 at 2100, Blood Sugar Low Dose PM - PO patients 200 or less No Insulin 201 - 250 1 unit 251 - 299 2 units Greater than 299 Call MD for hyperglycemia management instructions Do NOT hold for NPO status., Indications: Diabetes Mellitus 2127 (Not Given - Provider: Jerzy Fisher RN - Reason: Order parameters not met) 220 (Given - Provider: Nena Zamarripa, DES - Comment: Pt. requested) insulin aspart U-100 (NovoLOG) injection 1-3 Units 1-3 Units, subcutaneous, 3 times daily with meals, First dose on Fri10/01/17 at 0800, Blood Sugar Low Dose meal time - PO patients 175 or less No Insulin 176 - 200 1 unit 201 - 250 2 units 251 - 299 3 units Greater than 299 Call MD for hyperglycemia management instructions Do NOT hold for NPO status., Indications: Diabetes Mellitus 0828 (Not Given - Provider: Vinny Whaley RN - Reason: Contraindicated)1233 (Not Given - Provider: Vinny Whaley RN - Reason: Contraindicated)1747 (Not Given - Provider: Manish Chavez RN - Reason: Order parameters not met) 0852 (Not Given - Provider: Erendira Kraus RN - Reason: Order parameters not met)1227 (Given - Provider: Erendira Kraus RN)1800 (Due) 1022 (Not Given - Provider: Trina Quinones RN - Reason: Order parameters not met)1202 (Not Given - Provider: Trina Quinones RN - Reason: Order parameters not met)1657 (Not Given - Provider: Trina Quinones RN - Reason: Order parameters not met) insulin glargine (LANTUS) pen injection 6 Units (CANCELED) 6 Units, subcutaneous, Nightly, First dose on Fri10/01/17 at 2100, Do not mix with other insulins 2128 (Given - Provider: Jerzy Fisher RN) insulin glargine (LANTUS) pen injection 8 Units 8 Units, subcutaneous, Nightly, First dose (after last modification) on Fri10/02/17 at 2100, Do not mix with other insulins 2203 (Given - Provider: Nena Zamarripa RN - Comment: Pt. requested) latanoprost (XALATAN) 0.005 % ophthalmic solution 1 drop 1 drop, each eye, Nightly, First dose on Fri10/01/17 at 2100 213 (Given - Provider: Jerzy Fisher RN) 2205 (Given - Provider: Nenaezio Zamarripa RN - Comment: PT. REQUESTED) linaclotide (LINZESS) capsule 72 mcg 72 mcg, oral, Daily before breakfast, First dose on Fri10/01/17 at 0730, Indications: chronic idiopathic constipation 0654 (Given - Provider: Aleta Rivas RN - Comment: NO READ ABLE BARCODE) 0854 (Given - Provider: Erendira Kraus, RN) 1033 (Given - Provider: Trina Quinones, DES) pantoprazole DR (PROTONIX) extended release tablet 40 mg 40 mg, oral, Daily, First dose on Fri10/01/17 at 0900, Do not crush or chew, Indications: Treatment of Non-Bleeding Gastric Disorder 0827 (Given - Provider: Vinny Whaley RN) 0849 (Given - Provider: Erendira Kraus RN) 1032 (Given - Provider: Trina Quinones RN) potassium chloride 20 mEq in sodium chloride 0.9% 250 mL IVPB (COMPLETED) 20 mEq, intravenous, at 130 mL/hr, Administer over 2 Hours, Once, On Fri09/30/17 at 2215, For 1 dose, Indications: hypokalemia 0042 (Stopped - Provider: Nena Zamarripa RN)0045 (Restarted - Provider: Nena Zamarripa RN)0230 (Stopped - Provider: Aleta Rivas RN) potassium chloride ER (KLOR-CON,K-DUR) extended release tablet 20 mEq (COMPLETED) 20 mEq, oral, Once, On Fri10/01/17 at 0700, For 1 dose, Do not crush or chew 0635 (Given - Provider: Aleta Rivas RN) potassium chloride ER (KLOR-CON,K-DUR) extended release tablet 20 mEq (CANCELED) 20 mEq, oral, Daily, First dose on Fri10/02/17 at 0900, Do not crush or chew 0850 (Given - Provider: Erendira Kraus RN) potassium chloride ER (KLOR-CON,K-DUR) extended release tablet 20 mEq (COMPLETED) 20 mEq, oral, Once, On Fri10/02/17 at 0845, For 1 dose, Do not crush or chew 0854 (Given - Provider: Erendira Kraus RN) potassium chloride ER (KLOR-CON,K-DUR) extended release tablet 40 mEq (COMPLETED) 40 mEq, oral, Once, On Fri10/01/17 at 1630, For 1 dose, Do not crush or chew 1609 (Given - Provider: Manish Chavez RN) potassium chloride ER (KLOR-CON,K-DUR) extended release tablet 40 mEq (COMPLETED) 40 mEq, oral, Once, On Fri10/02/17 at 0730, For 1 dose, Per electrolyte replacement protocol Do not crush or chew 0851 (Given - Provider: Erendira Kraus RN) potassium chloride ER (KLOR-CON,K-DUR) extended release tablet 40 mEq (COMPLETED) 40 mEq, oral, Once, On Fri10/02/17 at 1700, For 1 dose, Do not crush or chew 1704 (Given - Provider: Erendira Kraus RN) potassium chloride ER (KLOR-CON,K-DUR) extended release tablet 40 mEq 40 mEq, oral, Daily, First dose (after last modification) on Fri10/03/17 at 0900, Do not crush or chew 1201 (Given - Provider: Trina Quinones RN - Comment: staggered dose per pharmacy recommendation) potassium chloride ER (KLOR-CON,K-DUR) extended release tablet 40 mEq (COMPLETED) 40 mEq, oral, Once, On Fri10/03/17 at 0900, For 1 dose, Do not crush or chew 1031 (Given - Provider: Trina Quinones RN) potassium chloride ER (KLOR-CON,K-DUR) extended release tablet 40 mEq (COMPLETED) 40 mEq, oral, Once, On Fri10/03/17 at 1700, For 1 dose, Do not crush or chew 1633 (Given - Provider: Trina Quinones RN) psyllium (aspartame) SF (METAMUCIL SF) 3.4 gram packet 1 packet 1 packet, oral, 3 times daily, First dose on Fri10/01/17 at 0900, Indications: constipation 0828 (Given - Provider: Vinny Whaley RN)1608 (Given - Provider: Manish Chavez RN)2130 (Given - Provider: eJrzy Fisher RN) 0852 (Given - Provider: Erendira Kraus RN)1536 (Given - Provider: Erendira Kraus RN)2203 (Given - Provider: Nena Zamarripa, RN - Comment: Pt. requested) 1032 (Given - Provider: Trina Quinones RN)1543 (Given - Provider: Trina Quinones, DES) rosuvastatin (CRESTOR) tablet 10 mg 10 mg, oral, Nightly, First dose on Fri10/01/17 at 2100 2130 (Given - Provider: Jerzy Fisher RN) 2202 (Given - Provider: Nena Zamarripa, DES - Comment: Pt. requested) SITagliptin (JANUVIA) tablet 100 mg (CANCELED) 100 mg, oral, Daily, First dose on Fri10/01/17 at 0900 0827 (Given - Provider: Vinny Whaley RN) 0849 (Given - Provider: Erendira Kraus RN) SITagliptin (JANUVIA) tablet 50 mg 50 mg, oral, Daily, First dose (after last modification) on Fri10/03/17 at 0900, Dose of sitagliptin adjusted per renal protocol for CrCl=30-49 ml/min (CrCl=46.4 ml/min) 1031 (Given - Provider: Trina Quinones RN) sodium chloride 0.9% flush 0.5-20 mL 0.5-20 mL, intra-catheter, Every 8 hours scheduled, First dose on Fri10/01/17 at 0615, Flush volume based on line type and size. , Indications: Flushing 0637 (Given - Provider: Aleta Rivas RN)1609 (Given - Provider: Manish Chavez RN)2132 (Given - Provider: Jerzy Fisher RN) 0557 (Given - Provider: Jerzy Fisher RN)1536 (Given - Provider: Erendira Kraus RN)2251 (Given - Provider: Nena Zamarripa RN) 1032 (Not Given - Provider: Trina Quinones RN - Reason: Other - Comment: previous shift did not give)1428 (Given - Provider: Trina Quinones RN) verapamil SR (CALAN SR) extended release tablet 240 mg 240 mg, oral, Daily, First dose on Fri10/01/17 at 0900, Hold for SBP< 120 and/or HR<55 Do not crush or chew 0827 (Given - Provider: Vinny Whaley, RN) 0848 (Given - Provider: Erendira Kraus, RN) 1031 (Given - Provider: Trina Quinones, DES) PRN Medication Order 10/01/2017 10/02/2017 10/03/2017 acetaminophen (TYLENOL) tablet 650 mg 650 mg, oral, Every 4 hours PRN, 1st line for pain, fever, fever greater than 38.3 C, Starting on Fri10/01/17 at 0538, Indications: Fever, Pain bisacodyl EC (DULCOLAX EC) tablet 10 mg 10 mg, oral, Daily PRN, constipation, If no results 24 hours after milk of magnesia, Starting on Fri10/01/17 at 0650, Do not crush or chew dextrose (D10W) 10% bolus 250 mL 250 mL, intravenous, at 1,000 mL/hr, Administer over 15 Minutes, Every 15 min PRN, blood glucose less than 70 mg/dL and unable to swallow/take PO glucose/juice, Starting on Fri10/01/17 at 0538, For 1 dose, Indications: Hypoglycemia dextrose (D10W) 10% bolus 250 mL 250 mL, intravenous, at 62.5 mL/hr, Administer over 4 Hours, Every 4 hours PRN, when tube feedings are held or interrupted AND patient is receiving basal insulin (Lantus, Levemir, NPH), Starting on Fri10/01/17 at 0538, For 1 dose, To cover glucose from tube feeds, infuse over 4 hours. NOTE: administer D10 250ml IV at TUBE FEEDING ADMINISTRATION RATE and notify MD promptly to re-evaluate patient's BG status and insulin therapy. Discontinue D10 infusion when tube feedings are reinitiated or per MDs instruction. Continuation of this D10W order beyond the initial 250ml requires ongoing MD approval and patient evaluation., Indications: Hypoglycemia dextrose 50% (concentrated solution) CONCENTRATED solution 25 g 25 g, intravenous, Every 15 min PRN, low blood sugar, blood glucose less than 50 mg/dL AND decreased level of consciousness, Starting on Fri10/01/17 at 0538, Give IV Push over 2 minutes., Indications: Hypoglycemia dextrose gel in packet 15 g 15 g, oral, Every 15 min PRN, low blood sugar, blood glucose less than 70 mg/dL, Starting on Fri10/01/17 at 0538, If patient is alert and able to eat/drink, give 15 gram glucose or one juice (4 fluid ounces) NOT ORANGE JUICE, Indications: Hypoglycemia glucagon injection 1 mg 1 mg, intramuscular, Every 30 min PRN, low blood sugar, blood glucose less than 70 mg/dL and no IV access and unable to take PO glucose/juice, Starting on Fri10/01/17 at 0538, Follow glucagon treatment with glucose treatment or IV dextrose as appropriate based on clinical status., Indications: Hypoglycemia magnesium hydroxide (MILK OF MAGNESIA) 80 mg/mL oral suspension 30 mL 30 mL, oral, Daily PRN, constipation, Starting on Fri10/01/17 at 0650 mineral oil (FLEET MINERAL OIL) enema 1 enema 1 enema, rectal, Daily PRN, constipation, if no results 24 hours after bisacodyl, Starting on Fri10/01/17 at 0650, Indications: constipation ondansetron (ZOFRAN) injection 4 mg(Linked Group 1) 4 mg, intravenous, Every 6 hours PRN, nausea, vomiting, if not tolerating PO, Starting on Fri10/01/17 at 0538, Indications: Nausea and Vomiting 0642 (Given - Provider: Aleta Rivas RN) ondansetron ODT (ZOFRAN-ODT) disintegrating tablet 4 mg(Linked Group 1) 4 mg, oral, Every 6 hours PRN, nausea, vomiting, Starting on Fri10/01/17 at 0538, Indications: Nausea and Vomiting 0642 (See Alternative - Provider: Aleta Rivas RN) polyvinyl alcohol 1.4 % ophthalmic solution 2 drop 2 drop, each eye, As needed, dry eyes, Starting on Fri10/01/17 at 0533, Indications: Dry Eye sodium chloride 0.9% flush 0.5-20 mL 0.5-20 mL, intra-catheter, As needed, line care, Starting on Fri10/01/17 at 0538, Flush volume based on line type and size. Flush before and after each use. , Indications: Flushing Linked Groups Order Group 1: ondansetron ODT (ZOFRAN-ODT) disintegrating tablet 4 mgJump to med 4 mg, oral, Every 6 hours PRN, nausea, vomiting, Starting on Fri10/01/17 at 0538, Indications: Nausea and Vomiting Or ondansetron (ZOFRAN) injection 4 mgJump to med 4 mg, intravenous, Every 6 hours PRN, nausea, vomiting, if not tolerating PO, Starting on Fri10/01/17 at 0538, Indications: Nausea and Vomiting documented in this encounter Orders Medications Ordered That Daryn ht Not Have Been Administered Count Last Ordered Date First Ordered Date acetaminophen (TYLENOL) tablet 650 mg 1 bisacodyl EC (DULCOLAX EC) tablet 10 mg 1 0 10/01/2017 dextrose (D10W) 10% bolus 250 mL 2 10/02/19 dextrose 50% (concentrated s olution) CONCENTRATED solution 25 g 1 10/01/2017 dextrose gel in packet 15 g 1 10/01/2017 glucagon injection 1 mg 1 10/01/2017 magnesium hydroxide (MILK OF MAGNESIA) 80 mg/mL oral suspension 30 mL 1 10/01/2017 mineral oil (FLEET MINERAL O IL) enema 1 enema 1 10/01/2017 ondansetron ODT (ZOFRAN-ODT) disintegrating tablet 4 mg 1 10/01/2017 polyvinyl alcohol 1.4 % opht halmic solution 2 drop 1 10/01/2017 sodium chloride 0.9% flush 0.5-20 mL 1 09/16 potassium chloride 20 mEq in dextrose 5% 250 mL IVPB 1 09/30/2017 Lab Orders Without Results Count Last Ordered D ate First Ordered Date POCT GLUCOSE DEVICE 7 10/03/2017 10/02/19 18 Nursing Count Last Ordered Date First Orde red Date PLACE SEQUENTIAL COMPRESSION DEVICE 1 09/30 WEIGH PATIENT 1 09/30/2017 Consult Count Last Ordered Date First Orde red Date IP CONSULT TO SOCIAL WORK 1 10/01/2017 Admission Count Last Ordered Date First Orde red Date ASSIGN PATIENT STATUS 2 10/01/20172017 Discharge Count Last Ordered Date First Orde red Date DISCHARGE PATIENT 1 10/03/2017 CORE MEASURES Count Last Ordered Date First Ord ered Date REASON FOR NO VTE PROPHYLAXIS AT ADMISSION 1 09/30/2017 ADT Patient Update Count Last Ordered Date Firs t Ordered Date ED IP DECISION TO ADMIT 09/30/2017 documented in this encounter Care Teams Mechanical Design Engineer Facilities Relationship Specialty Start Date End Date Jarrell Garrison MD PCP - General 08/16/16 09/28/18 documented as of this encounter
--- OUTSIDE RECORDS SUMMARY | 2024-05-26 13:02 | XMS_ITS | Encounter Summary ---
Author Organization [facility] Healthcare Address [address] [place] [address] Care Team Providers Care Golf Shoe Spike Assembler Name Role Phone Jarrell Garrison MD Primary Care Provider [phone] Encounter Details Date Type Department Care Team (Late st Contact Info) Description 02/11/2016 12:03 PM CDT - 02/11/2016 11:59 PM CDT Hospital Encounter [facility] Weakness; Chest pain; Nonspecific low blood pressure reading; Pallor Social History Tobacco Use Types Packs/Day Years Used Date Smoking Tobacco: Never Alcohol Use Standard Drinks/Week Comments No 0 (1 standard drink = 0.6 oz pur e alcohol) Comments Unknown Sex and Gender Information Value Date Recorded Sex Assigned at Not on file Legal Sex Female 6:56 PM AGRICULTURAL SYSTEMS SPECIALIST Gender Identity Not on file Sexual Orientation [...] as of this encounter Visit Diagnoses Diagnosis Weakness Other malaise and fatigue Chest pain Unspecified chest pain Nonspecific low blood pressure reading Pallor documented in this encounter Care Teams Golf Shoe Spike Assembler Relationship Specialty Start Date End Date Jarrell Garrison MD PCP - General 09/26/15 08/15/16 documented as of this encounter
--- OUTSIDE RECORDS SUMMARY | 2024-05-26 13:02 | XMS_ITS | Encounter Summary ---
Author Organization [facility] Healthcare Address [address] [place] [address] Care Team Providers Care Options Advisor Name Role Phone Jarrell Garrison MD Primary Care Provider [phone] Encounter Details Date Type Department Care Team (Late st Contact Info) Description 06/14/2016 6:32 PM MARKETING COPYWRITER - 06/15/2016 12:41 AM [facility] Hospital Encounter [facility] Akash Anne MD [address] [place] [address] Abdominal pain; Personal history of other diseases of the circulatory system; Type 2 diabetes mellitus without complications (CMS/HCC); Atrial fibrillation (CMS/HCC); Lymphedema, not elsewhere classified Social History Tobacco Use Types Packs/Day Years Used Date Smoking Tobacco: Never Alcohol Use Standard Drinks/Week Comments No 0 (1 standard drink = 0.6 oz pur e alcohol) Comments Unknown Sex and Gender Information Value Date Recorded Sex Assigned at Not on file Legal Sex Female 6:56 PM MARKETING COPYWRITER Gender Identity Not on file Sexual Orientation [...] Procedure Name Priority Date/Time Associated Diagnosis Comments DISCHARGE LABORATORY CUMULATIVE REPORT 06/15/2016 CHEST, ABDOMINAL, PELVIC COMPUTED TOMOGRAPHY (CT) WITH CONTRAST, PULMONARY EMBOLISM Routine 06/14/2016 11:42 PM MARKETING COPYWRITER URINE (AEROBIC) CULTURE, CDR Routine 06/14/2016 10:48 PM MARKETING COPYWRITER URINE MICROSCOPY Routine 06/14/2016 10:4 8 PM MARKETING COPYWRITER URINALYSIS Routine 06/14/2016 10:48 PM MARKETING COPYWRITER XR CHEST PORTABLE Routine 06/14/2016 10: 25 PM MARKETING COPYWRITER SERUM LIPASE Routine 06/14/2016 7:43 PM MARKETING COPYWRITER SERUM ESTIMATED GLOMERULAR FILTRATION RATE Routine 06/14/2016 7:43 PM MARKETING COPYWRITER SERUM AMYLASE Routine 06/14/2016 7:43 PM MARKETING COPYWRITER PLASMA COMPREHENSIVE METABOLIC PANEL Routine 06/14/2016 7:43 PM MARKETING COPYWRITER BLOOD PROTHROMBIN TIME (PT) Routine 06/14/2016 7:43 PM MARKETING COPYWRITER BLOOD PARTIAL THROMBOPLASTIN TIME (PTT) Routine 06/14/2016 7:43 PM MARKETING COPYWRITER BLOOD D-DIMER Routine 06/14/2016 7:43 PM MARKETING COPYWRITER BLOOD CELL COUNT (CBC) Routine 7 7:43 PM MARKETING COPYWRITER BLOOD CELL MORPHOLOGIC EXAM Routine 06/14/2016 7:43 PM MARKETING COPYWRITER documented in this encounter Results * DISCHARGE LABORATORY CUMULATIVE REPORT (06/15/2016) Narrative 06/15/2016 Ordered by an unspecified provider. us Historical Provider LAB BLOOD ORDERABLES Bárbara mcdaniel Result * CHEST, ABDOMINAL, PELVIC COMPUTED TOMOGRAPHY (CT) WITH CONTRAST, PULMONARY EMBOLISM (06/14/2016 11:42 PM MARKETING COPYWRITER) Anatomical Region Laterality Modality N/A Computed Tomogra phy 06/14/2016 11:4 2 PM MARKETING COPYWRITER Narrative 06/15/2016 4:[address] Chest PE/Abd/Pel W [id number] ??Acc#: ??[id number] DATE OF EXAM: ??Jun 14 2016 CLINICAL HISTORY: Elevated D-dimer. ??Bilateral lower chest and epigastric pain for past month. RESULT: Serial transaxial images of the chest obtained per pulmonary embolism protocol with 120 ml Optiray 350 correlated to the chest xray from earlier in the evening. No pulmonary emboli are demonstrated. There is moderate atherosclerotic plaque in a normal caliber thoracic aorta. There is a trace pericardial effusion. ??No pleural effusion is identified. There are borderline enlarged lymph nodes in the hilar regions bilaterally. There are patchy ground-glass infiltrates in both lungs but no dense consolidation is seen. Old granulomatous disease is present. There are moderate osteoarthritic changes of the thoracic spine. IMPRESSION: 1. ??PATCHY GROUND-GLASS INFILTRATES BILATERALLY BUT NO DENSE LUNG CONSOLIDATION IS SEEN. 2. ??NO PULMONARY EMBOLISM. 3. ??NORMAL CALIBER THORACIC AORTA. CT ABDOMEN AND PELVIS CT W/CONT REPORT: Serial transaxial images of the abdomen and pelvis obtained utilizing 120 ml of Optiray 350. There is moderate atherosclerotic plaque in a normal caliber abdominal aorta. There are no focal hepatic abnormalities. ??The gallbladder is absent with clips in the right upper quadrant. ??There are no dilated intrahepatic or extrahepatic ducts. ??Granulomatous calcifications are seen within the spleen which otherwise is normal. ??The kidneys, adrenal glands and pancreas appear unremarkable. There is extensive fecal material throughout the colon. ??There is a right inguinal hernia that contains a small amount of nondilated small bowel. There is no bowel obstruction. The uterus is absent. There are pelvic phleboliths. 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 CONCLUSION: 1. ??EXTENSIVE FECAL MATERIAL THROUGHOUT THE COLON. 2. ??RIGHT INGUINAL HERNIA CONTAINING A SMALL AMOUNT OF NONDILATED SMALL BOWEL. ??THERE IS NO BOWEL OBSTRUCTION. 3. ??CHOLECYSTECTOMY. 4. ??HYSTERECTOMY. Interpreting Physician: ??YANN COFFMAN M.D. ??Read on: ??Jun 15 2016 ??7:48A Transcribed by: ??ylc ??On: Jun 15 2016 11:07A Approved Electronically by: ??YANN COFFMAN M.D. ??on: ??Jun 15 2016 ??4:19P Attending: ??AKASH FALL Requesting: ??AKASH FALL Requesting Fax: ??-- Attending Fax: ??-- Attending ID: ??[id number] Requesting ID: ??[id number] Report To 1 ID: ??[id number] Report To 1 Name: ??AKASH FALL Report To 1 FAX: ??-- NextGen Order #: Procedure Note Provider, MD Desiree - 09/25/2016 CT Chest PE/Abd/Pel W [id number] Acc#: [id number] DATE OF EXAM: Jun 14 2016 CLINICAL HISTORY: Elevated D-dimer. Bilateral lower chest and epigastric pain for pastmonth. RESULT: Serial transaxial images of the chest obtained per pulmonary embolismprotocol with 120 ml Optiray 350 correlated to the chest xray from earlierin the evening. No pulmonary emboli are demonstrated. There is moderateatherosclerotic plaque in a normal caliber thoracic aorta. There is atrace pericardial effusion. No pleural effusion is identified. There areborderline enlarged lymph nodes in the hilar regions bilaterally. Thereare patchy ground-glass infiltrates in both lungs but no denseconsolidation is seen. Old granulomatous disease is present. There aremoderate osteoarthritic changes of the thoracic spine. IMPRESSION: 1. PATCHY GROUND-GLASS INFILTRATES BILATERALLY BUT NO DENSE LUNGCONSOLIDATION IS SEEN. 2. NO PULMONARY EMBOLISM. 3. NORMAL CALIBER THORACIC AORTA. CT ABDOMEN AND PELVIS CT W/CONT REPORT: Serial transaxial images of the abdomen and pelvis obtained utilizing 120ml of Optiray 350. There is moderate atherosclerotic plaque in a normalcaliber abdominal aorta. There are no focal hepatic abnormalities. Thegallbladder is absent with clips in the right upper quadrant. There areno dilated intrahepatic or extrahepatic ducts. Granulomatouscalcifications are seen within the spleen which otherwise is normal. Thekidneys, adrenal glands and pancreas appear unremarkable. There isextensive fecal material throughout the colon. There is a right inguinalhernia that contains a small amount of nondilated small bowel. There is nobowel obstruction. The uterus is absent. 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 CONCLUSION: 1. EXTENSIVE FECAL MATERIAL THROUGHOUT THE COLON. 2. RIGHT INGUINAL HERNIA CONTAINING A SMALL AMOUNT OF NONDILATED SMALLBOWEL. THERE IS NO BOWEL OBSTRUCTION. 3. CHOLECYSTECTOMY. 4. HYSTERECTOMY. Interpreting Physician: YANN COFFMAN M.D. Read on: Jun 15 2016 7:48A Transcribed by: kassandra On: Jun 15 2016 11:07A Approved Electronically by: YANN COFFMAN M.D. on: Jun 15 2016 4:19P Attending: AKASH FALL Requesting: AKASH FALL Requesting Fax: -- Attending Fax: -- Attending ID: [id number] Requesting ID: [id number] Report To 1 ID: [id number] Report To 1 Name: AKASH FALL Report To 1 FAX: -- NextGen Order #: us Historical Provider MD GOMES CT PROCEDURES Final R esult * (ABNORMAL) Urinalysis (06/14/2016 10:48 PM MARKETING COPYWRITER) Color, ur Yellow Yellow CDR HISTORICAL RESULTS Clarity, ur Clear Clear CDR HISTORICAL RESULTS Specific gravity, ur 1.024 1.003 - 1.030 CDR HISTORICAL RESULTS Comment:Normal Ranges: 1.003 -1.030 pH, ur 5.0 4.5 - 8.0 CDR HISTORICAL RESULTS Comment:Normal ranges: 4.5-8 .0 Protein, ur, quant Negative Negative mg/dl CDR HISTORICAL RESULTS Glucose, ur, quant >=1000(A) Negative mg/dl CDR HISTORICAL RESULTS Ketones, ur Negative Negative CDR HISTORICAL RESULTS Bilirubin, ur Negative Negative CDR HISTORICAL RESULTS U Blood Negative Negative CDR HISTORICAL RESULTS Urobilinogen, quant, ur 0.2 0.2 - 1.0 Dalia Units/dl CDR HISTORICAL RESULTS Comment:Normal Ranges: 0.2-1 .0 EU/dL Nitrites, ur Positive(A) Negative CDR HISTORICAL RESULTS Leukocyte esterase, ur Negative Negative CDR HISTORICAL RESULTS Urine 06/14/2016 10:4 8 PM MARKETING COPYWRITER [facility] Provider MD LAB BLOOD ORDERABLES Bárbara l Result Performing Organization Address [facility] de Phone Number CDR HISTORICAL RESULTS * (ABNORMAL) Urine microscopy (06/14/2016 10:48 PM MARKETING COPYWRITER) RBC, ur 0 - 2 0 - 2 /hpf CDR HISTO RICAL RESULTS WBC, ur 10 - 25(A) 0 - 2 /hpf CDR HISTORICAL RESULTS Bacteria, ur 1+(A) Negative CDR HIS TORICAL RESULTS Hyaline casts Not Seen 0 - 2 CDR HI STORICAL RESULTS Epithelial cells, ur 0 - 2 0 - 2 /hpf CDR HISTORICAL RESULTS Urine 06/14/2016 10:4 8 PM MARKETING COPYWRITER [facility] Provider MD LAB BLOOD ORDERABLES Bárbara l Result Performing Organization Address [facility] de Phone Number CDR HISTORICAL RESULTS * Urine (aerobic) culture (06/14/2016 10:48 PM MARKETING COPYWRITER) Urine (Unknown) 06/14/2016 1 0:48 PM MARKETING COPYWRITER 06/14/2016 11:09 PM MARKETING COPYWRITER Result [facility] Provider MD LAB MICROBIOLOGY - GENERA L ORDERABLES Final Result Performing Organization Address [facility] de Phone Number CDR HISTORICAL RESULTS * XR Chest Portable (06/14/2016 10:25 PM MARKETING COPYWRITER) Anatomical Region Laterality Modality Body N/A Radiographic Mireya ging 06/14/2016 10:2 5 PM MARKETING COPYWRITER Narrative 06/15/2016 12:41 PM MARKETING COPYWRITER XR Chest Portable ? [id number] ??Acc#: ??[id number] DATE OF EXAM: ??Jun 14 2016 CLINICAL HISTORY: Chest discomfort. RESULT: A single frontal view of the chest is compared to the prior study dated 02/11/16. There is mild pulmonary vascular congestion. ??There is no focal consolidation. ??There is no effusion or pneumothorax. ??The cardiomediastinal silhouette is unchanged with moderate atherosclerotic calcification of the thoracic aorta. IMPRESSION: 1. ??MILD PULMONARY VASCULAR CONGESTION. Interpreting Physician: ??YANN COFFMAN M.D. ??Read on: ??Jun 15 2016 ??6:57A Transcribed by: ??kassandra ??On: Jun 15 2016 ??8:22A Approved Electronically by: ??YANN COFFMAN M.D. ??on: ??Jun 15 2016 12:41P Attending: ??AKASH FALL Requesting: ??AKAHS FALL Requesting Fax: ??-- Attending Fax: ??-- Attending ID: ??[id number] Requesting ID: ??[id number] Report To 1 ID: ??[id number] Report To 1 Name: ??AKASH FALL Report To 1 FAX: ??-- NextGen Order #: Procedure Note Provider, MD Desiree - 09/25/2016 XR Chest Portable [id number] Acc#: [id number] DATE OF EXAM: Jun 14 2016 CLINICAL HISTORY: Chest discomfort. RESULT: A single frontal view of the chest is compared to the prior study dated02/11/16. There is mild pulmonary vascular congestion. There is no focalconsolidation. There is no effusion or pneumothorax. Thecardiomediastinal silhouette is unchanged with moderate atheroscleroticcalcification of the thoracic aorta. IMPRESSION: 1. MILD PULMONARY VASCULAR CONGESTION. Interpreting Physician: YANN COFFMAN M.D. Read on: Jun 15 2016 6:57A Transcribed by: kassandra On: Jun 15 2016 8:22A Approved Electronically by: YANN COFFMAN M.D. on: Jun 15 2016 12:41P Attending: AKASH FALL Requesting: AKASH FALL Requesting Fax: -- Attending Fax: -- Attending ID: [id number] Requesting ID: [id number] Report To 1 ID: [id number] Report To 1 Name: AKASH FALL Report To 1 FAX: -- NextGen Order #: us Historical Provider MD GOMES XR PROCEDURES Final R esult * Serum lipase (06/14/2016 7:43 PM MARKETING COPYWRITER) Lip 37 10 - 70 Units/L CDR HISTORICAL RESULTS Serum 06/14/2016 7:43 PM MARKETING COPYWRITER us Historical Provider LAB BLOOD ORDERABLES Bárbara l Result CDR HISTORICAL RESULTS * Serum amylase (06/14/2016 7:43 PM MARKETING COPYWRITER) Sejal, pl 54 30 - 100 Units/L CDR HISTORICAL RESULTS Serum 06/14/2016 7:43 PM MARKETING COPYWRITER us Historical Provider LAB BLOOD ORDERABLES Bárbara l Result CDR HISTORICAL RESULTS * (ABNORMAL) Plasma comprehensive metabolic panel (06/14/2016 7:43 PM MARKETING COPYWRITER) Sodium 143 135 - 145 mmol/L CDR HISTORICAL RESULTS K, pl 3.6 3.5 - 5.1 mmol/L CDR HISTORICAL RESULTS Chloride 102 97 - 110 mmol/L CDR HISTORICAL RESULTS CO2 27 22 - 32 mmol/L CDR HISTORICAL RESULTS A. gap 14 8 - 16 mmol/L CDR HISTORICAL RESULTS Glucose 219(H) 70 - 199 mg/dl CDR HISTORICAL RESULTS [...] data was last revised on 2014. BUN 16.7 8.0 - 25.0 mg/dl CDR HISTORICAL RESULTS Creatinine 1.01 0.60 - 1.10 mg/dl CDR HISTORICAL RESULTS BUN/creat ratio 17 10 - 20 CDR HISTORICAL RESULTS Calcium 9.9 8.6 - 10.2 mg/dl CDR HISTORICAL RESULTS Protein, sr 6.7 6.0 - 8.4 g/dl CDR HISTORICAL RESULTS Alb 4.0 3.6 - 5.0 g/dl CDR HISTORICAL RESULTS Alk phos 127 40 - 130 Units/L CDR HISTORICAL RESULTS ALT 25 5 - 45 Units/L CDR HISTORICAL RESULTS AST 20 10 - 40 Units/L CDR HISTORICAL RESULTS Bilirubin 0.2 <=1.2 mg/dl CDR HISTORICAL RESULTS Plasma 06/14/2016 7:43 PM MARKETING COPYWRITER Historical Provider LAB BLOOD ORDERABLES Bárbara mcdaniel Result Performing Organization Address [facility] de Phone Number CDR HISTORICAL RESULTS * Blood partial thromboplastin time (PTT) (06/14/2016 7:43 PM MARKETING COPYWRITER) PTT 30.8 25.0 - 37.0 seconds CDR HISTORICAL RESULTS Blood specimen (specimen) 06/14/2016 7:43 PM MARKETING COPYWRITER Historical Provider LAB BLOOD ORDERABLES Bárbara mcdaniel Result Performing Organization Address [facility] de Phone Number CDR HISTORICAL RESULTS * Blood cell count (CBC) (06/14/2016 7:43 PM MARKETING COPYWRITER) WBC 7.4 3.8 - 9.8 K/cumm CDR HISTORICAL RESULTS RBC 4.65 3.90 - 5.00 M/cumm CDR HISTORICAL RESULTS Hgb 13.3 12.1 - 15.1 g/dl CDR HISTORICAL RESULTS Hct 40.0 36.1 - 44.3 % CDR HISTORICAL RESULTS MCV 86.0 80.0 - 100.0 fl CDR HISTORICAL RESULTS MCH 28.6 26.7 - 33.7 pg CDR HISTORICAL RESULTS MCHC 33.3 32.7 - 36.0 g/dl CDR HISTORICAL RESULTS Rdw 13.8 11.5 - 14.6 % CDR HISTORICAL RESULTS Platelets 411 140 - 440 K/cumm CDR HISTORICAL RESULTS MPV 10.1 8.0 - 12.0 fl CDR HISTORICAL RESULTS NRBC 0.0 0.0 - 0.0 % CDR HIST ORICAL RESULTS NRBC, abs 0.00 0.00 - 0.00 K/cumm CDR HISTORICAL RESULTS Blood specimen (specimen) 06/14/2016 7:43 PM MARKETING COPYWRITER Historical Provider LAB BLOOD ORDERABLES Bárbara mcdaniel Result Performing Organization Address [facility] Co de Phone Number CDR HISTORICAL RESULTS * Blood prothrombin time (PT) (06/14/2016 7:43 PM MARKETING COPYWRITER) Prothrombin time (PT) 11.3 9.5 - 12.5 seconds CDR HISTORICAL RESULTS INR 1.00 0.90 - 1.20 CDR HIST ORICAL RESULTS Comment: Interpretive Data Recommended ranges for Protime INR: 2.0 - 3.0 Most indications for Warfarin therapy (e.g. Treatment of DVT, PE, bioprosthetic valve replacement, prophylaxis venous thrombosis, atrial fibrillation). 2.5 - 3.5 Mechanical mitral valve or dual mechanical mitral and Aortic valve replacement. Current Interpretive Data was last revised on 2015. Blood specimen (specimen) 06/14/2016 7:43 PM MARKETING COPYWRITER Historical Provider LAB BLOOD ORDERABLES Bárbara l Result CDR HISTORICAL RESULTS * Blood cell morphologic exam (06/14/2016 7:43 PM MARKETING COPYWRITER) Neutrophils 64.3 44.0 - 80.0 % CDR HISTORICAL RESULTS Immature granulocytes 0.4 0.0 - 1.0 % CDR HISTORICAL RESULTS Lymphocytes 20.8 13.0 - 44.0 % CDR HISTORICAL RESULTS Monos 10.7 2.0 - 11.0 % CDR HISTORICAL RESULTS Eosinophils 3.1 0.0 - 6.0 % CDR HISTORICAL RESULTS Basophils 0.7 0.0 - 3.0 % CDR HISTORICAL RESULTS Neutrophils, abs 4.8 1.6 - 7.0 K/cumm CDR HISTORICAL RESULTS Immature granulocyte, abs 0.0 0.0 - 0.2 K/cumm CDR HISTORICAL RESULTS Lymphocytes, abs 1.5 0.5 - 4.3 K/cumm CDR HISTORICAL RESULTS Monocytes, absolute 0.8 0.1 - 1.0 K/cumm CDR HISTORICAL RESULTS Eosinophils, abs 0.2 0.0 - 0.6 K/cumm CDR HISTORICAL RESULTS Basophils, abs 0.0 0.0 - 0.3 K/cumm CDR HISTORICAL RESULTS Blood specimen (specimen) 06/14/2016 7:43 PM MARKETING COPYWRITER Historical Provider MD LAB BLOOD ORDERABLES Bárbara l Result CDR HISTORICAL RESULTS * Serum estimated glomerular filtration rate (06/14/2016 7:43 PM MARKETING COPYWRITER) eGFR 54 ml/min/1.7 3 m2 CDR HISTORICAL RESULTS Comment: Interpretive Data Reference Interval Normal ?>/= 90 mL/min/1.73m2 Mildly decreased* ? 60 - 89 mL/min/1.73m2 Mildly to moderately decreased ?45 - 59 mL/min/1.73m2 Moderately to severely decreased ??30 - 44 mL/min/1.73m2 Severely decreased ?15 - 29 mL/min/1.73m2 Kidney Failure ?< 15 ??mL/min/1.73m2 *Relative to young adult level If -[place] multiply value by 1.16. Estimated glomerular filtration [...] Current interpretive data was last reviewed 2015. Serum 06/14/2016 7:43 PM MARKETING COPYWRITER us Historical Provider LAB BLOOD ORDERABLES Bárbara mcdaniel Result CDR HISTORICAL RESULTS * Blood D-dimer (06/14/2016 7:43 PM MARKETING COPYWRITER) Pathologist [facility] [place] D-dimer 169 150 - 230 ng/ml D-DU CDR HISTORICAL RESULTS Comment: Interpretive Data This D-dimer test is approved by the FDA to exclude suspected PE and DVT in outpatients when the result is <230 ng/mL in conjunction with a pre-test probability score of low or moderate using the Wells criteria. Current Interpretive Data was last revised on 2015. Blood specimen (specimen) 06/14/2016 7:43 PM MARKETING COPYWRITER us Historical Provider LAB BLOOD ORDERABLES Bárbara mcdaniel Result CDR HISTORICAL RESULTS documented in this encounter Visit Diagnoses Diagnosis Abdominal pain Abdominal pain, unspecified site Personal history of other diseases of the circulatory system Type 2 diabetes mellitus without complications (CMS/HCC) (HCC) Atrial fibrillation (CMS/HCC) (HCC) Atrial fibrillation Lymphedema, not elsewhere classified documented in this encounter Care Teams Options Advisor Relationship Specialty Start Date End Date Jarrell Garrison MD PCP - General 09/26/15 08/15/16 documented as of this encounter
--- OUTSIDE RECORDS SUMMARY | 2024-05-26 13:02 | XMS_ITS | Encounter Summary ---
Author Organization [facility] Healthcare Address [address] [place] [address] Care Team Providers Care Sql Tech Name Role Phone Jarrell Garrison MD Primary Care Provider [phone] Reason for Visit * Reason Comments GERD Encounter Details Date Type Department Care Team (Late st Contact Info) Description 04/07/2018 5:23 AM PROGRAM FACILITATOR - 04/07/2018 12:10 PM PROGRAM FACILITATOR Emergency [facility] Emergency Department [address] [place] [id number] Darin Flor MD [address] [place] [address] [id number] Indigestion (Primary Dx); Shivering Discharge Disposition: Discharge to home or self care Social History Tobacco Use Types Packs/Day Years Used Date Smoking Tobacco: Never Smokeless Tobacco: Never Alcohol Use Standard Drinks/Week Comments No 0 (1 standard drink = 0.6 oz pur e alcohol) Comments No Sex and Gender Information Value Date Recorded Sex Assigned at Not on file Legal Sex Female 6:56 PM PROGRAM FACILITATOR Gender Identity Not on file Sexual Orientation Not on file documented as of this encounter Last Filed Vital Signs Vital Sign Reading Time Taken Comments Blood Pressure 149/52 04/07/2018 12:05 PM PROGRAM FACILITATOR Pulse 77 04/07/2018 12:05 PM PROGRAM FACILITATOR Temperature 36.4 ??C (97.5 ??F) 04/07/2018 5:12 AM CS T Respiratory Rate 18 04/07/2018 12:05 PM PROGRAM FACILITATOR Oxygen Saturation 98% 04/07/2018 12:05 PM PROGRAM FACILITATOR Inhaled Oxygen Concentration - - Weight 88 kg (194 lb) 04/07/2018 5:12 AM PROGRAM FACILITATOR Height 165.1 cm (5' 5 ) 04/07/2018 5:12 AM PROGRAM FACILITATOR Body Mass Index 32.28 04/07/2018 5:12 AM PROGRAM FACILITATOR documented in this encounter Discharge Instructions * Attachments The following attachments cannot be sent through Care Everywhere. * Indigestion (AfterCare(R) Instructions(ER/ED)) (Turkmen) documented in this encounter Medications at Time [...] documented in this encounter ED Notes * Darin Flor MD - 04/07/2018 5:44 AM CST HPI Chief Complaint Patient presents with ??? GERD The patient states that she was in this facility undergoing a sleep study, when she developed shivering and sense of indigestion, and was promptly transferred to the emergency room for evaluation. She states the symptoms have been present for approximately 1 hr, but are somewhat better now than when they started. There is no clear precipitating cause. She denies fevers, chills, nausea, vomiting, or diarrhea. She denies any shortness of breath. She denies any chest pain. She states she did have a cardiac catheterization many years ago that showed some mild coronary disease but that she has never had angioplasty or stenting. She also reports a history of atrial fibrillation for which she takes Plavix. Her mothers helper is Dr. Valencia. Patient History Patient Active Problem List Diagnosis Date Noted ??? Breast cancer ([facility]) 10/01/2017 Priority: Medium ??? Generalized weakness 10/01/2017 Priority: Medium ? ? Nausea & vomiting 10/01/2017 Priority: Medium ??? DM (diabetes mellitus) ([facility]) 10/01/2017 Priority: Medium ??? PAF (paroxysmal atrial fibrillation) ([facility]) 10/01/2017 Priority: Low ??? Lymphedema of both lower extremities 10/01/2017 Priority: Low ??? CATY on CPAP 10/01/2017 Priority: Low ??? Chronic diastolic congestive heart failure ([facility]) 10/03/2017 ??? Pure hypercholesterolemia 08/30/2015 Class: [...] disease Coronary artery disease ??? Diabetes mellitus ([facility]) ??? 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 Glaucoma Glaucoma ??? Glaucoma ??? Herpes [...] Systems Review of Systems Constitutional: Negative for appetite change, chills, fever and unexpected weight change. Shivering HENT: Negative for ear pain, hearing loss, rhinorrhea, sinus pressure and sore throat. Eyes: Negative for photophobia, pain, discharge and visual disturbance. Respiratory: Negative for cough, shortness of breath and wheezing. Cardiovascular: Negative for chest pain, palpitations and leg swelling. Gastrointestinal: Negative for abdominal pain, diarrhea, nausea and vomiting. Indigestion Endocrine: Negative for polydipsia, polyphagia and polyuria. Genitourinary: Negative for dysuria, frequency, hematuria and urgency. Musculoskeletal: Negative for arthralgias, back pain and myalgias. Skin: Negative for rash. Neurological: Negative for dizziness, weakness, light-headedness and headaches. Hematological: Negative for adenopathy. Physical Exam ED Triage Vitals [04/07/18 0512] Temp Pulse Resp BP SpO2 36.4 ??C (97.5 ??F) 74 18 154/80 97 % Temp src Heart Rate Source Patient Position BP Location FiO2 (%) Oral Right Sitting Right arm -- Physical Exam Constitutional: She is oriented to person, place, and time. She appears well- developed and well-nourished. HENT: Head: Normocephalic and atraumatic. Right Ear: External ear normal. Left Ear: External ear normal. Mouth/Throat: Oropharynx is clear and moist. Eyes: Pupils are equal, round, and reactive to light. Conjunctivae and EOM are normal. Neck: Normal range of motion. Neck supple. Cardiovascular: Normal rate, regular rhythm, normal heart sounds and intact distal pulses. Exam reveals no gallop and no friction rub. No murmur heard. Pulmonary/Chest: Effort normal and breath sounds normal. No respiratory distress. She has no wheezes. She has no rales. She exhibits no tenderness. Abdominal: Soft. Bowel sounds are normal. She exhibits no distension. There is no tenderness. No hernia. Musculoskeletal: Normal range of motion. She exhibits no edema, tenderness or deformity. Neurological: She is alert and oriented to person, place, and time. Skin: Skin is warm and dry. Psychiatric: She has a normal mood and affect. Her behavior is normal. Labs Reviewed URINALYSIS AND REFLEX TO MICROSCOPIC AND CULTURE - Abnormal Result Value Color, ur Yellow Clarity, ur Clear Specific gravity, ur 1.021 pH, urine 6.0 Protein, ur ql Negative Glucose, ur ql 3+ (*) Ketones, ur Negative Bilirubin, ur Negative Blood, ur Negative Urobilinogen, ur <2.0 Nitrite, ur Negative Leukocyte esterase, ur Negative Narrative: Urine pH is affected by diet, medications, systemic acid-base disturbances, and renal tubular function. pH may affect urinary stone formation. For example, urine pH below 6.0 may help reduce the tendency for calcium phosphate stones and pH greater than 6.0 may reduce the tendency for uric acid stone formation. Source: [employer].Last revised 05-29-2017 CBC WITH AUTO DIFFERENTIAL - Abnormal WBC 7.2 Hgb 11.5 (*) Hct 38.9 Plt 369 MPV 10.4 RBC 4.66 MCV 83.5 MCH 24.7 (*) MCHC 29.6 (*) RDW CV 17.4 (*) RDW SD 53.1 (*) Narrative: COMPREHENSIVE METABOLIC PANEL Sodium 142 Potassium, pl 3.5 Chloride 104 CO2 28 Anion Gap 14 BUN 18 Creatinine 0.85 Glucose 146 Calcium 9.7 Bilirubin, total 0.33 Protein, pl 6.5 Albumin 3.8 Alk phos 81 ALT 20 AST 21 Narrative: AMYLASE Amylase 43 Narrative: LIPASE Lipase 32 Narrative: MAGNESIUM Magnesium 2.5 Narrative: TROPONIN I Troponin I <0.03 Narrative: DIFFERENTIAL AUTO Neutrophil absolute 4.9 Immature granulocyte absolute 0.0 Lymphocytes absolute 1.3 Monocyte absolute 0.8 Eosinophils absolute 0.2 Basophils, abs 0.0 Neutrophils 67.5 Immature granulocytes 0.1 Lymphocytes 18.0 Monocytes 11.5 Eosinophils 2.5 Basophils 0.4 Narrative: EGFR GFR 65 Narrative: TROPONIN I Troponin I <0.03 Narrative: XR Chest 1 View Final Result 1. Compensated cardiomegaly. No acute disease. Electronically signed by: Jimmie Kraus M.D. [facility] ED Course as of Apr 07 1143 Time: 04/07 0772 Comment: The patient reports relief of her indigestion after receiving sublingual nitroglycerin. Wediscussed admission given her multiple risk factors for coronary artery disease. I told her I wouldcontact her mothers helper to discuss this. By: Darin Flor MD Time: 04/07 0877 Comment: I spoke to Dr. Pride, who is covering for Dr. Valencia, who directed me to discharge the patient home if her 2nd troponin was negative and she remains pain-free, and to follow up closely with Dr. Valencia. The patient reports that she has had no recurrence of her indigestion/chest pain. By: Darin Flor MD Time: 04/07 1128 Comment: The patient remains pain-free at this time, and her 2nd cardiac enzyme is negative. She will be discharged at this time as directed by Dr. Pride (mothers helper covering for Dr. Valencia), with instructions to follow up closely with Dr. Valencia in his office. By: Darin Flor MD Indigestion Shivering Darin Flor MD 04/07/18 1143 RAM FACILITATOR * Ashlee Murray RN - 04/07/2018 5:19 AM CST Was having sleep study last night and brought down RAM FACILITATOR * Ashlee Murray RN - 04/07/2018 5:18 AM CST I shivered everywhere and I had a feeling in my chest like indigestion RAM FACILITATOR documented in this encounter Miscellaneous Notes * ED Procedure Note - Darin Flor MD - 04/07/2018 7:52 AM PROGRAM FACILITATOR Associated Order(s): ECG 12-LEAD Procedure ECG 12 lead Date/Time: 04/07/2018 7:52 AM Performed by: DARIN FLOR Authorized by: DARIN FLOR Rate: ECG rate: 77 ECG rate assessment: normal Rhythm: Rhythm: sinus rhythm Conduction: Conduction: abnormal Abnormal conduction: non-specific intraventricular conduction delay Darin Flor MD 04/07/18 0753 RAM FACILITATOR documented in this encounter Plan of Treatment Not on file documented as of this encounter Procedures Procedure Name Priority Date/Time Associated Diagnosis Comments TROPONIN I Timed 04/07/2018 10:01 AM PROGRAM FACILITATOR XR CHEST 1 VIEW ED 04/07/2018 6:35 AM PROGRAM FACILITATOR URINALYSIS AND REFLEX TO MICROSCOPIC AND CULTURE STAT 04/07/2018 6:20 AM PROGRAM FACILITATOR EGFR STAT 04/07/2018 5:53 AM PROGRAM FACILITATOR DIFFERENTIAL AUTO STAT 04/07/2018 5:5 3 AM PROGRAM FACILITATOR CBC WITH AUTO DIFFERENTIAL STAT 04/07/2018 5:53 AM PROGRAM FACILITATOR TROPONIN I STAT 04/07/2018 5:53 AM PROGRAM FACILITATOR MAGNESIUM STAT 04/07/2018 5:53 AM PROGRAM FACILITATOR LIPASE STAT 04/07/2018 5:53 AM PROGRAM FACILITATOR AMYLASE STAT 04/07/2018 5:53 AM PROGRAM FACILITATOR COMPREHENSIVE METABOLIC PANEL STAT 04/07/2018 5:53 AM PROGRAM FACILITATOR ECG 12-LEAD STAT 04/07/2018 5:36 AM PROGRAM FACILITATOR documented in this encounter Results * Troponin I (04/07/2018 10:01 AM PROGRAM FACILITATOR) Troponin I <0.03 0.00 - 0.14 ng/mL MADDI GRACIA Comment: Interpretive Data Normal: ? 0.00 - 0.14 ng/mL Indeterminate: ?0.15 - 0.50 ng/mL IL / Cardiac Muscle Damage: ? >0.50 ng/mL Current interpretive data was last reviewed 2015 Testing performed by: [facility], [address], [place] [address] Blood specimen (specimen) 04/07/2018 10:01 AM PROGRAM FACILITATOR 04/07/2018 10:07 AM PROGRAM FACILITATOR Narrative MADDI GRACIA - 04/07/2018 10:33 AM PROGRAM FACILITATOR Darin Flor MD LAB BLOOD ORDERABLES Fin al Result MADDI [address] [place] [address] * XR Chest 1 View (04/07/2018 6:35 AM PROGRAM FACILITATOR) Anatomical Region Laterality Modality Body, Chest N/A Computed Radiogr aphy 04/07/2018 8:09 AM PROGRAM FACILITATOR Impressions 04/07/2018 8:11 AM PROGRAM FACILITATOR 1. Compensated cardiomegaly. ??No acute disease. Electronically signed by: Jimmie Kraus M.D. Narrative 04/07/2018 8:11 AM PROGRAM FACILITATOR RESULT: Examination: Chest, single frontal view History: CHF WITH LOW EJECTION FRACTION Comparison: 09/30/2017. Findings: Cardiomediastinal silhouette is enlarged. There is no pneumothorax or pleural effusion. There is no focal pulmonic consolidation. Procedure Note Jimmie Kraus MD - 04/07/2018 RESULT: Examination: Chest, single frontal view History: CHF WITH LOW EJECTION FRACTION Comparison: 09/30/2017. Findings: Cardiomediastinal silhouette is enlarged. There is no pneumothorax or pleural effusion. There is no focal pulmonic consolidation. IMPRESSION: 1. Compensated cardiomegaly. No acute disease. Electronically signed by: Jimmie Kraus M.D. Darin Flor MD IMG XR PROCEDURES Final Result * (ABNORMAL) Urinalysis reflex to microscopic and culture Urine (04/07/2018 6:20 AM PROGRAM FACILITATOR) Color, ur Yellow Yellow MADDI Comment:Testing performed by : [facility], [address], [place] [address] Clarity, ur Clear Clear CERNER CH Comment:Testing performed by : [facility], [facility] [place] [address] Specific gravity, ur 1.021 1.010 - 1.025 CERNER CH Comment:Testing performed by : [facility], [place] [address] pH, urine 6.0 CERNER CH Comment:Testing performed by : [facility], [place] [address] Protein, ur ql Negative Negative CERNER CH Comment:Testing performed by : [facility], [address] [place] [address] Glucose, ur ql 3+(A) Negative CERNER CH Comment:Testing performed by : [facility], [address] [place] [address] Ketones, ur Negative Negative CERNER CH Comment:Testing performed by : [facility], [address] [place] [address] Bilirubin, ur Negative Negative CERNER CH Comment:Testing performed by : [facility] [address], [place] [address] Blood, ur Negative Negative CERNER CH Comment:Testing performed by : [facility], [address] [place] [address] Urobilinogen, ur <2.0 <2.0 mg/dL CERNER CH Comment:Testing performed by : [facility] [place] [address] Nitrite, ur Negative Negative CERNER CH Comment:Testing performed by : [facility], [place] [address] Leukocyte esterase, ur Negative Negative CERNER CH Comment:Testing performed by : [facility], [facility] [place] [address] Urine 04/07/2018 6:20 AM PROGRAM FACILITATOR 04/07/2018 6:38 AM PROGRAM FACILITATOR Narrative CERNER CH - 04/07/2018 6:45 AM PROGRAM FACILITATOR ?? Urine pH is affected by diet, medications, systemic acid-base disturbances, and renal tubular function. ??pH may affect urinary stone formation. ??For example, urine pH below 6.0 may help reduce the tendency for calcium phosphate stones and pH greater than 6.0 may reduce the tendency for uric acid stone formation. Source: Mccann Tree[employer]. Last revised 05-29-2017 us Darin Flor MD LAB MICROBIOLOGY - GENER AL ORDERABLES Final Result Performing Organization Address [facility] de Phone Number MADDI [address] [place] [address] * eGFR (04/07/2018 5:53 AM PROGRAM FACILITATOR) [facility] eGFR 65 mL/min/1.7 3 m2 [facility] Comment: Interpretive Data Reference Interval Normal ?>/= 90 mL/min/1.73m2 Mildly decreased* ? 60 - 89 mL/min/1.73m2 Mildly to moderately decreased ?45 - 59 mL/min/1.73m2 Moderately to severely decreased ??30 - 44 mL/min/1.73m2 Severely decreased ?15 - 29 mL/min/1.73m2 Kidney Failure ?< 15 ??mL/min/1.73m2 *Relative to young adult level If -Egyptian multiply value by 1.16. Estimated glomerular filtration [...] Current interpretive data was last reviewed 2015. Testing performed by: [facility], [address], [place] [address] Blood specimen (specimen) 04/07/2018 5:53 AM PROGRAM FACILITATOR 04/07/2018 6:12 AM PROGRAM FACILITATOR Narrative MADDI - 04/07/2018 6:34 AM PROGRAM FACILITATOR Darin Flor MD LAB BLOOD ORDERABLES Fin al Result Performing Organization Address [facility] de Phone Number [facility] [address] [place], [place] [id number] [phone] * Differential, auto (04/07/2018 5:53 AM PROGRAM FACILITATOR) Neutrophil abs 4.9 1.7 - 6.5 K/cumm CERNER CH Comment:Testing performed by : [facility], [facility] [address] Imm gran abs 0.0 0.0 - 0.1 K/cumm CERNER CH Comment:Testing performed by : [place] [address] [place] [address] Lymphocyte abs 1.3 0.8 - 3.3 K/cumm CERNER CH Comment:Testing performed by : [address] [place] [address] Monocyte abs 0.8 0.2 - 0.8 K/cumm CERNER CH Comment:Testing performed by : [address] [place] [address] Eosinophil abs 0.2 0.0 - 0.5 K/cumm CERNER CH Comment:Testing performed by : [address] [place] [address] Basophil abs 0.0 0.0 - 0.1 K/cumm CERNER CH Comment:Testing performed by : [address] [place] [address] Neutrophil pct 67.5 % CERNER CH Comment: Interpretive Data Percent cell count reference ranges are not reported, since discordance with absolute values may lead to misinterpretation of CBC data. Current Interpretive Data was last revised on 2017. Testing performed by: [address] [place] [address] Imm gran pct 0.1 % CERNER CH Comment: Interpretive Data Percent cell count reference ranges are not reported, since discordance with absolute values may lead to misinterpretation of CBC data. Current Interpretive Data was last revised on 2017. Testing performed by: [address] [place] [address] Lymphocyte pct 18.0 % CERNER CH Comment: Interpretive Data Percent cell count reference ranges are not reported, since discordance with absolute values may lead to misinterpretation of CBC data. Current Interpretive Data was last revised on 2017. Testing performed by: [address] [place] [address] Monocyte pct 11.5 % [facility] Comment: Interpretive Data Percent cell count reference ranges are not reported, since discordance with absolute values may lead to misinterpretation of CBC data. Current Interpretive Data was last revised on 2017. Testing performed by: [facility], [address], [place] [address] Eosinophil pct 2.5 % MADDI Comment: Interpretive Data Percent cell count reference ranges are not reported, since discordance with absolute values may lead to misinterpretation of CBC data. Current Interpretive Data was last revised on 2017. Testing performed by: [facility], [address] [place] [address] Basophil pct 0.4 % [facility] Comment: Interpretive Data Percent cell count reference ranges are not reported, since discordance with absolute values may lead to misinterpretation of CBC data. Current Interpretive Data was last revised on 2017. Testing performed by: [facility], [place] [address] Blood specimen (specimen) 04/07/2018 5:53 AM PROGRAM FACILITATOR 04/07/2018 6:12 AM PROGRAM FACILITATOR Narrative MADDI - 04/07/2018 6:15 AM PROGRAM FACILITATOR Darin Flor MD LAB BLOOD ORDERABLES Fin al Result [facility] [address] [place] [address] * Troponin I (04/07/2018 5:53 AM PROGRAM FACILITATOR) Troponin I <0.03 0.00 - 0.14 ng/mL MADDI Comment: Interpretive Data Normal: ? 0.00 - 0.14 ng/mL Indeterminate: ?0.15 - 0.50 ng/mL IL / Cardiac Muscle Damage: ? >0.50 ng/mL Current interpretive data was last reviewed 2015 Testing performed by: [facility], [place] [address] Blood specimen (specimen) 04/07/2018 5:53 AM PROGRAM FACILITATOR 04/07/2018 6:12 AM PROGRAM FACILITATOR Narrative [facility] - 04/07/2018 6:37 AM PROGRAM FACILITATOR Darin Flor MD LAB BLOOD ORDERABLES Fin al Result MADDI GRACIA [address] [place], [place] [id number] * Magnesium (04/07/2018 5:53 AM PROGRAM FACILITATOR) Pathologist [facility] Magnesium 2.5 1.8 - 2.6 mg/dL MADDI Comment:Testing performed by : [facility] [place] [address] Blood specimen (specimen) 04/07/2018 5:53 AM PROGRAM FACILITATOR 04/07/2018 6:12 AM PROGRAM FACILITATOR Narrative [facility] - 04/07/2018 6:34 AM PROGRAM FACILITATOR Darin Flor MD LAB BLOOD ORDERABLES Fin al Result Performing Organization Address [facility] Co de Phone Number MADDI GRACIA [address] [facility] [place] [address] * Lipase (04/07/2018 5:53 AM PROGRAM FACILITATOR) Pathologist [facility] Lipase 32 20 - 50 Units/L MADDI Comment:Testing performed by : [facility] [place] [address] Blood specimen (specimen) 04/07/2018 5:53 AM PROGRAM FACILITATOR 04/07/2018 6:12 AM PROGRAM FACILITATOR Narrative [facility] - 04/07/2018 6:34 AM PROGRAM FACILITATOR Darin Flor MD LAB BLOOD ORDERABLES Fin al Result MADDI BASIL [address] [place] [address] * Amylase (04/07/2018 5:53 AM PROGRAM FACILITATOR) Amylase 43 35 - 100 Units/L CERNER Comment:Testing performed by : [facility], [place] [address] Blood specimen (specimen) 04/07/2018 5:53 AM PROGRAM FACILITATOR 04/07/2018 6:12 AM PROGRAM FACILITATOR Narrative [facility] - 04/07/2018 6:34 AM PROGRAM FACILITATOR Darin Flor MD LAB BLOOD ORDERABLES Fin al Result [facility] [address] [place] [address] * Comprehensive metabolic panel (04/07/2018 5:53 AM PROGRAM FACILITATOR) Pathologist [facility] Sodium 142 135 - 145 mmol/L CERNER Comment:Testing performed by : [facility] [address], [place] [address] Potassium, pl 3.5 3.5 - 5.1 mmol/L CERNER Comment:Testing performed by : [facility], [place] [address] Chloride 104 100 - 114 mmol/L CERNER Comment:Testing performed by : [facility] [address], [place] [address] CO2 28 22 - 32 mmol/L CERNER Comment:Testing performed by : [facility] [address], [place] [address] Anion gap 14 8 - 16 mmol/L [facility] Comment:Testing performed by : [facility] [address], [place] [address] BUN 18 8 - 24 mg/dL [facility] Comment:Testing performed by : [facility] [address], [place] [address] Creatinine 0.85 0.60 - 1.30 mg/dL CERNER Comment:Testing performed by : [facility] [address], [place] [address] Glucose 146 70 - 199 mg/dL [facility] Comment: Interpretive Data Fasting glucose >/= 126 [...] Current interpretive data was last revised 2017. Testing performed by: [facility] [address] Calcium 9.7 8.4 - 10.5 mg/dL [facility] Comment:Testing performed by : [facility] [address] Bilirubin, total 0.33 0.10 - 1.30 mg/dL CERNER Comment:Testing performed by : [facility] [address], [place] [address] Protein, pl 6.5 6.0 - 8.3 g/dL CERNER Comment:Testing performed by : [facility] [address] Albumin 3.8 3.2 - 4.8 g/dL CERNER Comment:Testing performed by : [facility] [address], [place] [address] Alk phos 81 30 - 110 Units/L CERNER Comment:Testing performed by : [facility] [address] ALT 20 1 - 45 Units/L CERNER Comment:Testing performed by : [facility] [address], [place] [address] AST 21 7 - 40 Units/L CERNER Comment:Testing performed by : [facility] [address] Blood specimen (specimen) 04/07/2018 5:53 AM PROGRAM FACILITATOR 04/07/2018 6:12 AM PROGRAM FACILITATOR Narrative [facility] - 04/07/2018 6:34 AM PROGRAM FACILITATOR us Darin Flor MD LAB BLOOD ORDERABLES Fin al Result MADDI GRACIA [address] [place] [address] * (ABNORMAL) CBC with auto differential (04/07/2018 5:53 AM PROGRAM FACILITATOR) [facility] WBC 7.2 3.8 - 9.9 K/cumm [facility] Comment:[facility] : [facility] [address] [place] [address] Hgb 11.5(L) 11.9 - 15.5 g/dL [facility] Comment:Testing performed by : [facility] [address], [place] [address] Hct 38.9 35.6 - 45.5 % [facility] Comment:Testing performed by : [facility] [address], [place] [address] Plt 369 150 - 400 K/cumm [facility] Comment:Testing performed by : [facility] [address], [place] [address] MPV 10.4 9.1 - 12.3 fL [facility] Comment:Testing performed by : [facility] [address], [place] [address] RBC 4.66 3.90 - 5.20 M/cumm [facility] Comment:Testing performed by : [facility] [address], [place] [address] MCV 83.5 81.3 - 96.4 fL [facility] Comment:Testing performed by : [facility] [address], [place] [address] MCH 24.7(L) 27.1 - 33.3 pg [facility] Comment:Testing performed by : [facility] [address], [place] [address] MCHC 29.6(L) 32.3 - 35.7 g/dL [facility] Comment:Testing performed by : [facility] [address], [place] [address] RDW CV 17.4(H) 11.1 - 14.9 % [facility] Comment:Testing performed by : [facility] [address] [place] [address] RDW SD 53.1(H) 35.7 - 48.1 fL [facility] Comment:Testing performed by : [facility] [place] [address] Blood specimen (specimen) (Blood, Venous) 04/07/2018 5:53 AM PROGRAM FACILITATOR 04/07/2018 6:12 AM PROGRAM FACILITATOR Narrative [facility] - 04/07/2018 6:15 AM PROGRAM FACILITATOR us Darin Flor MD LAB BLOOD ORDERABLES Fin al Result [facility] [address] [place] [address] * ECG 12 lead (04/07/2018 5:36 AM PROGRAM FACILITATOR) Patient age 77 years [facility] Interpretation Text SINUS RHYTHMBORDERLINE LEFT AXIS DEVIATIONMODERATE INTRAVENTRICULAR CONDUCTION DELAYBORDERLINE ECGPREVIOUS TRACIN05/22/2013 15.20No significant changes noted [facility] Comment:Physician Interprete r Dr. Amina Pride M.D. Ventricular Rate EKG/Min 77 /min [facility] P Wave Duration 147 ms [facility] QRS-Interval (MSEC) 126 ms [facility] LA-Interval (MSEC) 197 ms [facility] QT Interval 427 ms [facility] QTc 456 ms [facility] QTC Interval ms [facility] P [place] 70 deg [facility] QRS [place] -25 deg [facility] T [place] 44 deg [facility] 04/07/2018 5:36 AM PROGRAM FACILITATOR us Darin [place] MD ECG ORDERABLES Final Re sult Performing Organization Address [facility] Co de Phone Number [facility] documented in this encounter Visit Diagnoses Diagnosis Indigestion- Primary Dyspepsia and other specified disorders of function of stomach Shivering Chills (without fever) documented in this encounter Administered Medications Inactive Administered Medications - up to 3 most recent administrations Medication Order MAR Action Action Date Dose Rate Site nitroglycerin (NITROSTAT) sublingual tablet 0.4 mg 0.4 mg, sublingual, Once, On Fri04/07/18 at 0545, For 1 dose, May administer up to 3 doses per episode. Given 04/07/2018 6:02 AM PROGRAM FACILITATOR 0.4 mg ondansetron (ZOFRAN) injection 4 mg 4 mg, intravenous, Administer over 2 Minutes, Every 30 min PRN, nausea, vomiting, Starting on Fri04/07/18 at 0543 sodium chloride 0.9% bolus 500 mL 500 mL, intravenous, at 500 mL/hr, Administer over 1 Hours, Once, On Fri04/07/18 at 0545, For 1 dose New Bag 04/07/2018 6:08 AM PROGRAM FACILITATOR 500 mL 500 mL/hr traMADol (ULTRAM) tablet 50 mg 50 mg, oral, Once, On Fri04/07/18 at 0600, For 1 dose Given 04/07/2018 7:01 AM PROGRAM FACILITATOR 50 mg documented in this encounter Active and Recently Administered Medications Times are shown in PROGRAM FACILITATOR. Scheduled Medication Order 04/05/2018 04/06/2018 04/07/2018 nitroglycerin (NITROSTAT) sublingual tablet 0.4 mg (COMPLETED) 0.4 mg, sublingual, Once, On Fri04/07/18 at 0545, For 1 dose, May administer up to 3 doses per episode. 0602 (Given - Provid er: Christine Bates, DES) sodium chloride 0.9% bolus 500 mL (COMPLETED) 500 mL, intravenous, at 500 mL/hr, Administer over 1 Hours, Once, On Fri04/07/18 at 0545, For 1 dose 0608 (New Bag - Prov ider: Christine Bates RN)0708 (Stopped - Provider: Nieves Dyer, DES) traMADol (ULTRAM) tablet 50 mg (COMPLETED) 50 mg, oral, Once, On Fri04/07/18 at 0600, For 1 dose 0701 (Given - Provid er: Nieves Dyer, DES) PRN Medication Order 04/05/2018 04/06/2018 04/07/2018 ondansetron (ZOFRAN) injection 4 mg 4 mg, intravenous, Administer over 2 Minutes, Every 30 min PRN, nausea, vomiting, Starting on Fri04/07/18 at 0543 documented in this encounter Orders Medications Ordered That Daryn ht Not Have Been Administered Count Last Ordered Date First Ordered Date ondansetron (ZOFRAN) injection 4 mg 1 04/07 Nursing Count Last Ordered Date First Orde red Date CARDIORESPIRATORY MONITOR 1 04/07/2018 IV Count Last Ordered Date First Orde red Date SALINE LOCK IV 1 04/07/2018 documented in this encounter Care Teams Sql Tech Relationship Specialty Start Date End Date Jarrell Garrison MD PCP - General 3/31/17 5/13/19 documented as of this encounter
--- OUTSIDE RECORDS SUMMARY | 2024-05-26 13:02 | XMS_ITS | Encounter Summary ---
Author Organization [facility] Healthcare Address [address] [place] [address] Care Team Providers Care Sandwich Machine Operator Name Role Phone Jarrell Garrison MD Primary Care Provider [phone] Encounter Details Date Type Department Care Team (Latest Contact Info) Description 10/17/2015 12:48 PM CDT - 10/17/2015 11:59 PM CDT Hospital Encounter [facility] Yuliya Ibarra MD [id number] [place] [address] Type 2 diabetes mellitus without complications (CMS/HCC); Hypercalcemia Social History Tobacco Use Types Packs/Day Years Used Date Smoking Tobacco: Never Alcohol Use Standard Drinks/Week Comments No 0 (1 standard drink = 0.6 oz pur e alcohol) Comments Unknown Sex and Gender Information Value Date Recorded Sex Assigned at Not on file 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 Glycemia controlled ?>8% ?? Hyperglycemia, additional action recommended ?Jerilyn Immunochemical Method Blood specimen (specimen) 10/17/2015 7:55 AM CDT Narrative HISTORICAL RESULTS - 10/17/2015 9:46 AM CDT Test performed at [address], [facility]. us Historical Provider LAB BLOOD ORDERABLES Bárbara [email or web address] Result HISTORICAL RESULTS * Plasma basic metabolic panel (10/17/2015 7:55 AM CDT) Pathologist [facility] Sodium 142 135 - 145 mmol/L HISTORICAL RESULTS K, pl 3.7 3.5 - 5.1 mmol/L HISTORICAL RESULTS Chloride 108 100 - 114 mmol/L HISTORICAL RESULTS CO2 26 22 - 32 mmol/L HISTORICAL RESULTS BUN 19 10 - 26 mg/dl HISTORICAL RESULTS Glucose 139 70 - 199 mg/dl HISTORICAL RESULTS A. gap 12 8 - 16 mmol/L HISTORICAL RESULTS Creatinine 0.90 0.60 - 1.30 mg/dl HISTORICAL RESULTS Calcium 10.1 8.4 - 10.5 mg/dl HISTORICAL RESULTS eGFR 61 90 - 200 ml/min/1.7 3 m2 HISTORICAL RESULTS Comment: If this individual is -[place], multiply result by 1.21 Repeated results of less than 60 is indicative of chronic kidney disease. MDRD formula has not been validated on individuals greater than 70 years old. Plasma 10/17/2015 7:55 AM CDT Narrative HISTORICAL RESULTS - 10/17/2015 9:31 AM CDT Test performed at [address], [address]. us Historical Provider LAB BLOOD ORDERABLES Bárbara l Result HISTORICAL RESULTS * DISCHARGE LABORATORY CUMULATIVE REPORT (10/17/2015) Narrative 10/17/2015 Ordered by an unspecified provider. us Historical Provider LAB BLOOD ORDERABLES Bárbara l Result documented in this encounter Visit Diagnoses Diagnosis Type 2 diabetes mellitus without complications (CMS/HCC) (HCC) Hypercalcemia documented in this encounter Care Teams Sandwich Machine Operator Relationship Specialty Start Date End Date Jarrell Garrison MD PCP - General 09/26/15 08/15/16 documented as of this encounter
--- OUTSIDE RECORDS SUMMARY | 2024-05-26 13:02 | XMS_ITS | Encounter Summary ---
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
--- OUTSIDE RECORDS SUMMARY | 2024-05-26 13:02 | XMS_ITS | Encounter Summary ---
Author Organization [facility] Healthcare Address [address] [place] [address] Care Team Providers Care Tool Room Machinist Name Role Phone Theresa Camargo MD Primary Care Provider [phone] Reason for Visit * Reason Comments Fall Leg Pain Neck Pain Encounter Details Date Type Department Care Team (Late st Contact Info) Description 09/29/2018 7:30 PM CDT - 09/29/2018 9:44 PM CDT Emergency [facility] Emergency Department [address] [place] [id number] Jerzy Akhtar MD [address] [place] [id number] Fall, initial encounter (Primary Dx); Strain of neck muscle, initial encounter Discharge Disposition: Discharge to home or self care Social History Tobacco Use Types Packs/Day Years Used Date Smoking Tobacco: Never Smokeless Tobacco: Never Alcohol Use Standard Drinks/Week Comments No 0 (1 standard drink = 0.6 oz pur e alcohol) Comments No Sex and Gender Information Value Date Recorded Sex Assigned at Not on file 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 Gender Identity Not on file Sexual Orientation Not on file documented as of this encounter Last Filed Vital Signs Vital Sign Reading Time Taken Comments Blood Pressure 120/53 09/29/2018 6:04 PM CDT Pulse 58 09/29/2018 6:04 PM CDT Temperature 36.7 ??C (98 ??F) 09/29/2018 6:04 PM CDT Respiratory Rate 20 09/29/2018 6:04 PM CDT Oxygen Saturation 94% 09/29/2018 6:04 PM CDT Inhaled Oxygen Concentration - - Weight 90.7 kg (200 lb) 09/29/2018 6:05 PM CDT Height 165.1 cm (5' 5 ) 09/29/2018 6:05 PM CDT Body Mass Index 33.28 09/29/2018 6:05 PM CDT documented in this encounter Discharge Instructions * Attachments The following attachments cannot be sent through Care Everywhere. * Cervical Strain (AfterCare(R) Instructions(ER/ED)) ([place]) documented in this encounter Medications at Time [...] Means Destination Discharge to home or self [facility] documented in this encounter ED Notes * Jerzy Akhtar MD - 09/29/2018 7:55 PM CDT Chief Complaint Patient presents with ??? Fall ??? Leg Pain ??? 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 Patient's Daughter's report that the patient was ambulating with her walker when she suddenly, and accidentally, fell. They deny the patient sustaining any secondary head trauma or LOC; however, note the patient has been complaining of neck pain since. Upon arrival in the ED, family further endorses the patient leaning forward more so than usual; however, they deny any additional worsening symptoms/pain. Patient's Family otherwise note thatpatient's extensive medical history and claim that she is compliant with all current medications. There are no other complaints at this time. Past Medical History: Diagnosis Date ??? Anemia [...] mcg/actuation inhaler amitriptyline (ELAVIL) 25 mg tablet amitriptyline (ELAVIL) 25 mg tablet anastrozole (ARIMIDEX) 1 mg tablet artificial tears (SYSTANE GEL) 0.3 % gel aspirin (ASPIRIN LOW DOSE) 81 mg tablet clopidogrel (PLAVIX) 75 mg tablet clopidogrel (PLAVIX) 75 mg tablet clotrimazole-betamethasone (LOTRISONE) cream cyanocobalamin (vitamin B-12) 1,000 mcg tablet cyanocobalamin, vitamin B-12, (VITAMIN B-12) 1,000 mcg tablet extended release empagliflozin (JARDIANCE) 10 mg tablet empagliflozin (JARDIANCE) [address] (NexIUM) [address] (NexIUM) 40 mg capsule flecainide (TAMBOCOR) 50 mg tablet furosemide (LASIX) 40 mg tablet glimepiride (AMARYL) 1 mg tablet glimepiride (AMARYL) 1 mg tablet insulin detemir (LEVEMIR FLEXTOUCH) 100 unit/mL (3 mL) insulin pen latanoprost (XALATAN) 0.005 % ophthalmic solution latanoprost (XALATAN) 0.005 % ophthalmic solution latanoprost (XALATAN) 0.005 % ophthalmic solution lubiprostone (AMITIZA) 24 mcg capsule menthol-zinc oxide (CALMOSEPTINE) 0.44-20.6 % ointment metOLazone (ZAROXOLYN) 2.5 mg tablet multivitamin (ONCE DAILY) tablet tablet peg 400-propylene glycol (SYSTANE ULTRA) 0.4-0.3 % drops peg 400-propylene glycol (SYSTANE) 0.4-0.3 % ophthalmic solution psyllium, aspartame, SF (METAMUCIL SF) 3.4 gram packet rosuvastatin (CRESTOR) 10 mg tablet rosuvastatin (CRESTOR) 10 mg tablet SITagliptin (JANUVIA) 100 mg tablet SITagliptin (JANUVIA) 100 mg tablet verapamil ER (VERELAN) 240 mg 24 hr capsule Allergies Allergen Reactions [...] Genitourinary: Negative for dysuria and hematuria. Musculoskeletal: Positive for neck pain. Negative for arthralgias and back pain. Skin: Negative for color change and rash. Neurological: Negative for seizures and syncope. All other systems reviewed and are negative. Physical Exam Constitutional: She is oriented to person, place, and time. She appears well- developed and well-nourished. No distress. HENT: Head: Normocephalic and atraumatic. Mouth/Throat: Oropharynx is clear and moist. Eyes: Pupils are equal, round, and reactive to light. EOM are normal. Neck: Normal range of motion. Neck supple. Cardiovascular: Normal rate, regular rhythm and normal heart sounds. Pulmonary/Chest: Effort normal and breath sounds normal. No respiratory distress. Abdominal: Soft. Bowel sounds are normal. There is no tenderness. Musculoskeletal: Normal range of motion. She exhibits no edema or tenderness. Lymphadenopathy: She has no cervical adenopathy. Neurological: She is alert and oriented to person, place, and time. Skin: Skin is warm and dry. No rash noted. Nursing note and vitals reviewed. BP 120/53 Pulse 58 Temp 36.7 ??C (98 ??F) (Temporal) Resp 20 Ht 165.1 cm (5' 5 ) Wt 90.7 kg (200 lb) SpO2 94% BMI 33.28 kg/m?? Labs Reviewed CBC WITH AUTO DIFFERENTIAL - Abnormal Result Value WBC 7.0 Hgb 10.5 (*) Hct 34.2 (*) Plt 331 MPV 10.1 RBC 4.47 MCV 76.5 (*) MCH 23.5 (*) MCHC 30.7 (*) RDW CV 18.7 (*) RDW SD 51.0 (*) NRBC Abs 0.00 Narrative: COMPREHENSIVE METABOLIC PANEL - Abnormal Sodium 142 Potassium, pl 4.1 Chloride 108 CO2 24 Anion Gap 10 BUN 16 Creatinine 0.68 Glucose 103 Calcium 10.4 (*) Bilirubin, total 0.2 Protein, pl 6.6 Albumin 3.9 Alk phos 84 ALT 27 AST 30 Narrative: APTT aPTT 28.9 Narrative: PROTIME-INR PT 12.9 INR 1.14 Narrative: DIFFERENTIAL AUTO Neutrophil absolute 4.6 Immature granulocyte absolute 0.0 Lymphocytes absolute 1.3 Monocyte absolute 0.8 Eosinophils absolute 0.2 Basophils, abs 0.0 Neutrophils 66.3 Immature granulocytes 0.1 Lymphocytes 18.6 Monocytes 12.2 Eosinophils 2.4 Basophils 0.4 Narrative: EGFR GFR 83 Narrative: CT Head WO Contrast Final Result 1. NO ACUTE INTRACRANIAL FINDINGS. 2. VOLUME LOSS/ATROPHY AND WHITE MATTER MICROANGIOPATHY CHANGES. 3. CEREBROVASCULAR ATHEROSCLEROSIS. Electronically signed by: Orlando Luna M.D CT Cervical Spine WO Contrast Final Result 1. NO ACUTE FRACTURE IDENTIFIED. 2. DEGENERATIVE CHANGES. Electronically signed by: Orlando Luna M.D [place] IMPRESSION: 1. Fall, initial encounter 2. Strain of neck muscle, initial encounter ATTESTATIONS: This note is prepared by Mine Lee, acting as a scribe for Dr. Jerzy Akhtar MD, in the physician's presence. I electronically signed this note at 11:19 PM on 09/30/2018. I, Jerzy Akhtar MD, have personally performed the services described in the documentation, reviewed the documentation, as recorded by the scribe in my presence, and it accurately and completely records my words and actions. Jerzy Akhtar MD 09/30/18 [id number] * Ruchi Osman RN - 09/29/2018 6:02 PM CDT Patient reports she fell Friday night and Friday morning. Patient states she hit her head. DeniesLOC. Patient is on blood thinner. Patient c/o neck pain, bilateral arm and bilateral leg pain. A&Ox4. Speech clear. documented in this encounter Plan of Treatment Not on file documented as of this encounter Procedures Procedure Name Priority Date/Time Associated Diagnosis Comments CT CERVICAL SPINE WO CONTRAST ED 09/29/2018 8:[address] HEAD WO CONTRAST ED 09/29/2018 8 :45 PM CDT EGFR STAT 09/29/2018 7:13 PM CDT DIFFERENTIAL AUTO STAT 09/29/2018 7:1 3 PM CDT CBC WITH AUTO DIFFERENTIAL STAT 09/29/2018 7:13 PM CDT APTT STAT 09/29/2018 7:13 PM CDT PROTIME-INR STAT 09/29/2018 7:13 PM CDT COMPREHENSIVE METABOLIC PANEL STAT 09/29/2018 7:13 PM CDT documented in this encounter Results * CT Cervical Spine WO Contrast (09/29/2018 8:45 PM CDT) Anatomical Region Laterality Modality Spine N/A Computed Tomogra phy 09/29/2018 8:51 PM CDT Impressions 09/29/2018 8:56 PM CDT 1. ??NO ACUTE FRACTURE IDENTIFIED. 2. DEGENERATIVE CHANGES. Electronically signed by: Marcelo Chaves 09/29/2018 8:[address] CERVICAL SPINE WO CONTRAST HISTORY: Trauma. ??Injury due to fall. ??Neck pain. TECHNIQUE: Helical CT scan with thin section axial images, sagittal and coronal reformatted images. ??Soft tissue and osseous windows. COMPARISON: 12/08/2015. FINDINGS: Vertebral body heights are maintained. ??No compression fracture deformity identified. ??Slight offset at C3-C4 may represent pseudosubluxation, present previously. ??Degenerative disc disease primarily at C5-C6 and C6-C7. ??Mild to moderate spurring. ??Facet osteoarthritis, with some moderate severe changes. ??Examination not optimized for degenerative disc disease. ??Evidence of mild central disc protrusion at C2-C3. ??Hypertrophic changes of uncovertebral joints at C5-C6, especially on the right, with moderate foraminal narrowing on the right. ??Minor angulation/curvature to the left which may be positional in nature versus levoscoliosis. ??Carotid atherosclerotic changes. Procedure Note Orlando Luna MD - 09/29/2018 CT CERVICAL SPINE WO CONTRAST HISTORY: Trauma. Injury due to fall. Neck pain. TECHNIQUE: Helical CT scan with thin section axial images, sagittal and coronal reformatted images. Soft tissue and osseous windows. COMPARISON: 12/08/2015. FINDINGS: Vertebral body heights are maintained. No compression fracture deformity identified. Slight offset at C3-C4 may represent pseudosubluxation, present previously. Degenerative disc disease primarily at C5-C6 and C6-C7. Mild to moderate spurring. Facet osteoarthritis, with some moderate severe changes. Examination not optimized for degenerative disc disease. Evidence of mild central disc protrusion at C2-C3. Hypertrophic changes of uncovertebral joints at C5-C6, especially on the right, with moderate foraminal narrowing on the right. Minor angulation/curvature to the left which may be positional in nature versus levoscoliosis. Carotid atherosclerotic changes. IMPRESSION: 1. NO ACUTE FRACTURE IDENTIFIED. 2. DEGENERATIVE CHANGES. Electronically signed by: Orlando Luna M.D Jerzy Akhtar MD IM CT PROCEDURES Final Result * CT Head WO Contrast (09/29/2018 8:45 PM CDT) Anatomical Region Laterality Modality Head and Neck N/A Computed Tomogra phy 09/29/2018 8:48 PM CDT Impressions 09/29/2018 8:50 PM CDT 1. ??NO ACUTE INTRACRANIAL FINDINGS. 2. VOLUME LOSS/ATROPHY AND WHITE MATTER MICROANGIOPATHY CHANGES. 3. ??CEREBROVASCULAR ATHEROSCLEROSIS. Electronically signed by: Orlando Luna M.D Narrative 09/29/2018 8:50 PM CDT PROCEDURE: CT HEAD WO CONTRAST HISTORY: Fall. ??Head trauma. COMPARISON: 02/11/2016. TECHNIQUE: Helical CT scan of the head obtained noncontrast. FINDINGS: No acute intracranial hemorrhage identified. ??No midline shift is noted. ??Brainstem cisterns are intact. ??Very mild volume loss/atrophy. ??Diffuse white matter changes bilaterally. Cerebrovascular atherosclerosis. ??No depressed skull fracture identified. Procedure Note Orlando Luna MD - 09/29/2018 PROCEDURE: CT HEAD WO CONTRAST HISTORY: Fall. Head trauma. COMPARISON: 02/11/2016. TECHNIQUE: Helical CT scan of the head obtained noncontrast. FINDINGS: No acute intracranial hemorrhage identified. No midline shift is noted. Brainstem cisterns are intact. Very mild volume loss/atrophy. Diffuse white matter changes bilaterally. Cerebrovascular atherosclerosis. No depressed skull fracture identified. IMPRESSION: 1. NO ACUTE INTRACRANIAL FINDINGS. 2. VOLUME LOSS/ATROPHY AND WHITE MATTER MICROANGIOPATHY CHANGES. 3. CEREBROVASCULAR ATHEROSCLEROSIS. Electronically signed by: Orlando Luna M.D Jerzy Akhtar MD IMG CT PROCEDURES Final Result * eGFR (09/29/2018 7:13 PM CDT) eGFR 83 mL/min/1.7 3 m2 [facility] ([place]) Comment: Interpretive Data Reference Interval Normal ?>/= 90 mL/min/1.73m2 Mildly decreased* ? 60 - 89 mL/min/1.73m2 Mildly to moderately decreased ?45 - 59 mL/min/1.73m2 Moderately to severely decreased ??30 - 44 mL/min/1.73m2 Severely decreased ?15 - 29 mL/min/1.73m2 Kidney Failure ?< 15 ??mL/min/1.73m2 *Relative to young adult level If -[place] multiply value by 1.16. Estimated glomerular [...] was last reviewed 2015. Blood specimen (specimen) 09/29/2018 7:13 PM CDT 09/29/2018 7:35 PM CDT Narrative [facility] ([place]) - 09/29/2018 8:00 PM CDT us Jj Jewell MD LAB BLOOD ORDERABLES Final Res ult [facility] ([place]) 1 [facility] Department [place] [address] * Differential, auto (09/29/2018 7:13 PM CDT) Neutrophil abs 4.6 1.7 - 6.5 K/cumm [facility] ([place]) Imm gran abs 0.0 0.0 - 0.1 K/cumm [facility] ([place]) Lymphocyte abs 1.3 0.8 - 3.3 K/cumm [facility] ([place]) Monocyte abs 0.8 0.2 - 0.8 K/cumm [facility] ([place]) Eosinophil abs 0.2 0.0 - 0.5 K/cumm [facility] ([place]) Basophil abs 0.0 0.0 - 0.1 K/cumm [facility] ([place]) Neutrophil pct 66.3 % [facility] ([place]) Comment: Interpretive Data Percent cell count reference ranges are not reported, since discordance with absolute values may lead to misinterpretation of CBC data. Current Interpretive Data was last revised on 2017. Imm gran pct 0.1 % [facility] ([place]) Comment: Interpretive Data Percent cell count reference ranges are not reported, since discordance with absolute values may lead to misinterpretation of CBC data. Current Interpretive Data was last revised on 2017. Lymphocyte pct 18.6 % [facility] ([place]) Comment: Interpretive Data Percent cell count reference ranges are not reported, since discordance with absolute values may lead to misinterpretation of CBC data. Current Interpretive Data was last revised on 2017. Monocyte pct 12.2 % [facility] ([place]) Comment: Interpretive Data [...] on 2017. Basophil pct 0.4 % [facility] ([place]) Comment: Interpretive Data Percent cell count reference ranges are not reported, since discordance with absolute values may lead to misinterpretation of CBC data. Current Interpretive Data was last revised on 2017. Blood specimen (specimen) 09/29/2018 7:13 PM CDT 09/29/2018 7:35 PM CDT Narrative [facility] ([place]) - 09/29/2018 7:38 PM CDT us Jj Jewell MD LAB BLOOD ORDERABLES Final Res ult [facility] ([place]) 1 [facility] Department of Laboratories [place], [place] [id number] * Protime-INR (09/29/2018 7:13 PM CDT) PT 12.9 9.5 - 13.0 sec [facility] ([place]) INR 1.14 0.90 - 1.20 [facility] ([place]) Comment: Interpretive Data Recommended ranges for Protime INR: 2.0 - 3.0 Most indications for Warfarin therapy (e.g. Treatment of DVT, PE, bioprosthetic valve replacement, prophylaxis venous thrombosis, atrial fibrillation). 2.5 - 3.5 Mechanical mitral valve or dual mechanical mitral and Aortic valve replacement. Current Interpretive Data was last revised on 2015. Blood specimen (specimen) 09/29/2018 7:13 PM CDT 09/29/2018 7:35 PM CDT Narrative [facility] ([place]) - 09/29/2018 7:47 PM CDT Jj Jewell MD LAB BLOOD ORDERABLES Final Res ult Performing Organization Address City/[facility]/ZIP Co de Phone Number [facility] ([place]) [address] [facility] [place] [place] [address] * aPTT (09/29/2018 7:13 PM CDT) aPTT 28.9 25.0 - 37.0 sec [facility] ([place]) Blood specimen (specimen) 09/29/2018 7:13 PM CDT 09/29/2018 7:35 PM CDT Narrative [facility] ([place]) - 09/29/2018 7:50 PM CDT Jj Jewell MD LAB BLOOD ORDERABLES Final Res ult [facility] ([place]) 1 [facility] [place] [place] [address] * (ABNORMAL) Comprehensive metabolic panel (09/29/2018 7:13 PM CDT) Sodium 142 135 - 145 mmol/L [facility] ([place]) Potassium, pl 4.1 3.3 - 4.9 mmol/L [facility] ([place]) Chloride 108 97 - 110 mmol/L [facility] ([place]) CO2 24 22 - 32 mmol/L [facility] ([place]) Anion gap 10 2 - 15 mmol/L [facility] ([place]) BUN 16 8 - 25 mg/dL [facility] ([place]) Creatinine 0.68 0.60 - 1.10 mg/dL [facility] ([place]) Glucose 103 70 - 199 mg/dL [facility] ([place]) [...] - 8.5 g/dL [facility] ([place]) Albumin 3.9 3.5 - 5.0 g/dL [facility] ([place]) Alk phos 84 40 - 130 Units/L [facility] ([place]) ALT 27 7 - 45 Units/L [facility] ([place]) AST 30 10 - 45 Units/L [facility] ([place]) Comment:Slightly Hemolyzed S pecimen Blood specimen (specimen) 09/29/2018 7:13 PM CDT 09/29/2018 7:35 PM CDT Narrative [facility] ([place]) - 09/29/2018 8:00 PM CDT us Jj Jewell MD LAB BLOOD ORDERABLES Final Res ult [facility] ([place]) 1 [facility] Department [place] [address] * (ABNORMAL) CBC with auto differential (09/29/2018 7:13 PM CDT) WBC 7.0 3.8 - 9.9 K/cumm [facility] ([place]) Hgb 10.5(L) 11.9 - 15.5 g/dL [facility] ([place]) Hct 34.2(L) 35.6 - 45.5 % [facility] ([place]) Plt 331 150 - 400 K/cumm [facility] ([place]) MPV 10.1 9.1 - 12.3 fL [facility] ([place]) RBC 4.47 3.90 - 5.20 M/cumm [facility] ([place]) MCV 76.5(L) 81.3 - 96.4 fL [facility] ([place]) MCH 23.5(L) 27.1 - 33.3 pg [facility] ([place]) MCHC 30.7(L) 32.3 - 35.7 g/dL [facility] ([place]) RDW CV 18.7(H) 11.1 - 14.9 % [facility] ([place]) RDW SD 51.0(H) 35.7 - 48.1 fL [facility] ([place]) NRBC abs 0.00 0.00 - 0.01 K/cumm [facility] ([place]) Blood specimen (specimen) 09/29/2018 7:13 PM CDT 09/29/2018 7:35 PM CDT Narrative [facility] ([place]) - 09/29/2018 7:38 PM CDT us Jj Jewell MD LAB BLOOD ORDERABLES Final Res ult [facility] ([place]) 1 [facility] Department [place] [address] documented in this encounter Visit Diagnoses Diagnosis Fall, initial encounter- Primary Strain of neck muscle, initial encounter documented in this encounter Care Teams Tool Room Machinist Relationship Specialty Start Date End Date Theresa Camargo MD PCP - General 09/29/18 12/05/22 documented as of this encounter
--- OUTSIDE RECORDS SUMMARY | 2024-05-26 13:02 | XMS_ITS | Encounter Summary ---
Author Organization [facility] Healthcare Address [address] [place] [address] Care Team Providers Care Juvenile Detention Officer Name Role Phone Jarrell Garrison MD Primary Care Provider [phone] Encounter Details Date Type Department Care Team (Late st Contact Info) Description 02/10/2017 5:20 PM CDT - 02/10/2017 11:59 PM CDT Hospital Encounter [facility] Laz Valencia MD [address] [place], [place] [id number] Discharge Disposition: Discharge to home or self care Social History Tobacco Use Types Packs/Day Years Used Date Smoking Tobacco: Never Alcohol Use Standard Drinks/Week Comments No 0 (1 standard drink = 0.6 oz pur e alcohol) Comments Unknown Sex and Gender Information Value Date Recorded Sex Assigned at Not on file Legal Sex Female 6:56 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 Gender Identity Not on file Sexual Orientation Not on file documented as of this encounter Medications at Time of Discharge albuterol HFA (PROAIR HFA) 90 mcg/actuation inhaler inhale 2 puff by inhalation route every 6 hours as needed 0 Inhaler 0 08/05/2014 8 albuterol HFA (PROAIR HFA) 90 mcg/actuation [...] gel prn 0 0 07/01/2016 9 aspirin (ASPIR-81) 81 mg tablet take 1 tablet by oral route every day 0 0 07/01/2016 8 aspirin (ASPIRIN LOW DOSE) 81 mg tablet take 1 tablet by oral route every day 0 0 02/16/2016 1 clopidogrel (PLAVIX) 75 mg tablet TAKE ONE BY MOUTH ONE TIME PER DAY 90 5 01/29/2007 9 clopidogrel (PLAVIX) 75 mg tablet take 1 tablet by oral route every day 0 0 07/01/2016 1 clotrimazole-bet amethasone (LOTRISONE) cream apply by topical route 2 [...] 0 07/01/2016 9 furosemide (LASIX) 40 mg tablet TAKE 1 [...] requires individualization. 0 Syringe 0 03/10/2015 9 insulin detemir (LEVEMIR FLEXTOUCH) 100 unit/mL (3 mL) insulin pen inject by subcutaneous route per prescriber's instructions. Insulin dosing requires individualization. 10 units 0 Syringe 0 07/01/2016 8 latanoprost (XALATAN) 0.005 % ophthalmic solution instill [...] in the evening 0 0 07/01/2016 1 menthol-zinc oxide (CALMOSEPTINE) 0.44-20.6 % ointment PRN 0 0 07/01/2016 1 multivitamin (ONCE DAILY) tablet tablet take 1 tablet by oral route every day with food 0 0 07/01/2016 3 peg 400-propylene glycol (SYSTANE ULTRA) 0.4-0.3 % drops PRN 0 0 07/01/2016 9 potassium chloride ER (potassium chloride ER) 10 mEq CR tablet take 4 Capsule by oral route every day with food 0 0 07/01/2016 8 rosuvastatin (CRESTOR) 10 mg tablet TAKE 1 [...] route every day 0 0 07/01/2016 1 sotalol (BETAPACE) 80 mg tablet take 1 tablet by oral route 2 times every day 0 0 02/16/2016 8 verapamil ER (VERELAN) 240 mg 24 hr capsule take 1 capsule by oral route every day 0 0 07/01/2016 9 verapamil SR (CALAN SR) 180 mg CR tablet take 1 tablet by oral route every day with food 0 0 02/16/2016 8 documented as of this encounter Discharge Disposition Disposition Code Departure Means Destination Discharge to home or self care documented in this encounter Plan of Treatment Not on file documented as of this encounter Procedures Procedure Name Priority Date/Time Associated Diagnosis Comments DISCHARGE LABORATORY CUMULATIVE REPORT 02/11/2017 12:00 AM CDT EGFR New Adm-Reg 02/10/2017 5:29 PM CDT PRO B-TYPE NATRIURETIC PEPTIDE New Adm-Reg 02/10/2017 5:29 PM CDT BASIC METABOLIC PANEL New Adm-Reg 02/10/2017 5:29 PM CDT documented in this encounter Results * DISCHARGE LABORATORY CUMULATIVE REPORT (02/11/2017 12:00 AM CDT) Narrative 02/11/2017 12:00 AM CDT Ordered by an unspecified provider. us Historical Provider LAB BLOOD ORDERABLES Bárbara l Result * eGFR (02/10/2017 5:29 PM CDT) eGFR 48 mL/min/1.7 3 m2 [facility] ([place]) Comment: Interpretive Data Reference Interval Normal ?>/= 90 mL/min/1.73m2 Mildly decreased* ? 60 - 89 mL/min/1.73m2 Mildly to moderately decreased ?45 - 59 mL/min/1.73m2 Moderately to severely decreased ??30 - 44 mL/min/1.73m2 Severely decreased ?15 - 29 mL/min/1.73m2 Kidney Failure ?< 15 ??mL/min/1.73m2 *Relative to young adult level If -[place] multiply value by 1.16. Estimated glomerular filtration [...] was last reviewed 2015. Blood specimen (specimen) 02/10/2017 5:29 PM CDT 02/10/2017 5:33 PM CDT us Laz Valencia MD LAB BLOOD ORDERABLES Final Resu lt [facility] ([place]) [facility] Department [place] [address] * (ABNORMAL) Basic metabolic panel (02/10/2017 5:29 PM CDT) Sodium 139 135 - 145 mmol/L [facility] ([place]) Potassium 3.0(C) 3.5 - 5.1 mmol/L [facility] ([place]) Comment:Critical result call ed to and read back by Dr Johnson (application manager for DR Laz Valencia) on 02/10/2017 18:27:28 CDT to [id number]. Chloride 95(L) 97 - 110 mmol/L [facility] ([place]) CO2 32 22 - 32 mmol/L [facility] ([place]) Anion gap 12 8 - 16 mmol/L [facility] ([place]) Glucose 209(H) 70 - 199 mg/dL [facility] ([place]) Comment: Interpretive Data Note:The glucose is assumed non fasting Fastin-99 mg/dL Random: ??70-199 mg/dL Either a fasting glucose > 126 mg/dL or a random glucose > 200 mg/dL plus symptoms is diagnostic of diabetes when confirmed on another day. Fasting values > 100 mg/dL but < 125 mg/dL are diagnostic of impaired fasting glucose. Current interpretive data was last revised on 2014. BUN 23.0 8.0 - 25.0 mg/dL [facility] Creatinine 1.10 0.60 - 1.10 mg/dL [facility]) Calcium 10.0 8.6 - 10.2 mg/dL [facility] BUN/creat ratio 21(H) 10 - 20 [facility] ([place]) Blood specimen (specimen) 02/10/2017 5:29 PM CDT 02/10/2017 5:33 PM CDT Narrative [facility] - 02/10/2017 6:27 PM CDT ...FAX RESULTS TO [phone] us Laz Valencia MD LAB BLOOD ORDERABLES Final [facility]u lt [facility] ([place]) [facility] Department of Laboratories [place], [place] [id number] * Pro B-type natriuretic peptide (02/10/2017 5:29 PM CDT) NT-proBNP 74 10 - 280 pg/mL [facility] ([place]) Comment: Diagnosis of Congestive Heart Failure: [...] last revised on 2014. Blood specimen (specimen) 02/10/2017 5:29 PM CDT 02/10/2017 5:33 PM CDT us Laz Valencia MD LAB BLOOD ORDERABLES Final Resu lt Performing Organization Address City/State/[facility] Co de Phone Number [facility] ([place]) [facility] [place] [address] documented in this encounter Visit Diagnoses Not on filedocumented in this encounter Care Teams Juvenile Detention Officer Relationship Specialty Start Date End Date Jarrell Garrison MD PCP - General 08/16/16 09/28/18 documented as of this encounter
--- OUTSIDE RECORDS SUMMARY | 2024-05-26 13:02 | XMS_ITS | Encounter Summary ---
Author Organization [facility] Care Team Providers Care Railway Yard Assistant Name Role Phone Theresa Camargo MD Primary Care Provider [phone] Encounter Details Date Type Department Care Team (Latest Contact Info) Description 03/05/2019 Travel Social History Tobacco Use Types Packs/Day Years Used Date Smoking Tobacco: Never Smokeless Tobacco: Never Alcohol Use Standard Drinks/Week Comments No 0 (1 standard drink = 0.6 oz pur e alcohol) PHQ-2 Answer Date Recorded PHQ-2 Score 0 03/06/2019 Comments No Sex and Gender Information Value Date Recorded Sex Assigned at Not on file Legal Sex Female 6:56 PM 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
--- OUTSIDE RECORDS SUMMARY | 2024-05-26 13:03 | XMS_ITS | Encounter Summary ---
Author Organization [facility] Healthcare Address [address] [place] [address] Care Team Providers Care Warp Knitter Name Role Phone Jarrell Garrison MD Primary Care Provider [phone] Encounter Details Date Type Department Care Team (Late st Contact Info) Description 07/30/2010 9:00 AM CDT - 07/30/2010 11:59 PM CDT Hospital Encounter [facility] Other specified counseling; Type 2 or unspecified type diabetes mellitus, uncontrolled Social History Tobacco Use Types Packs/Day Years Used Date Smoking Tobacco: Never Assessed Comments Unknown Sex and Gender Information Value Date Recorded Sex Assigned at Not on file Legal Sex Female 6:56 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 Gender Identity Not on file Sexual Orientation Not on file documented as of this encounter Medications at Time of Discharge clopidogrel (PLAVIX) 75 mg tablet TAKE ONE BY MOUTH ONE TIME PER DAY 90 5 01/29/2007 9 cyanocobalamin, vitamin B-12, (VITAMIN B-12) 1,000 mcg tablet extended release 1 po daily 0 0 07/18/[address] (NexIUM) 40 mg capsule TAKE 1 CAPSULE DAILY 90 1 01/29/2007 1 latanoprost (XALATAN) 0.005 % ophthalmic solution instill 1 drop by Ophthalmic route every day into affected eye(s)in the evening 0 07/18/2009 9 rosuvastatin (CRESTOR) 10 mg tablet TAKE 1 TABLET BY MOUTH 1 TIME PER DAY AT BEDTIME 90 5 03/07/2009 1 documented as of this encounter Plan of Treatment Not on file documented as of this encounter Visit Diagnoses Diagnosis Other specified counseling Type 2 or unspecified type diabetes mellitus, uncontrolled documented in this encounter Care Teams Warp Knitter Relationship Specialty Start Date End Date Jarrell Garrison MD PCP - General 10/29/07 01/24/11 documented as of this encounter
--- OUTSIDE RECORDS SUMMARY | 2024-05-26 13:03 | XMS_ITS | Encounter Summary ---
Author Organization [facility] Healthcare Address [address] [place] [address] Care Team Providers Care Balancer Scale Name Role Phone Jarrell Garrison MD Primary Care Provider [phone] Encounter Details Date Type Department Care Team (Late st Contact Info) Description 05/28/2013 11:33 AM CERTIFIED ADAPTED PHYSICAL EDUCATOR - 05/28/2013 11:59 PM CERTIFIED ADAPTED PHYSICAL EDUCATOR Hospital Encounter [facility] Elpidio Vásquez MD [address] [place] [address] [address] [place] [address] Shortness of breath Social History Tobacco Use Types Packs/Day Years Used Date Smoking Tobacco: Never Alcohol Use Standard Drinks/Week Comments No 0 (1 standard drink = 0.6 oz pur e alcohol) Comments Unknown Sex and Gender Information Value Date Recorded Sex Assigned at Not on file Legal Sex Female 6:56 PM CERTIFIED ADAPTED PHYSICAL EDUCATOR Gender Identity Not on file Sexual Orientation Not on file documented as of this encounter Medications at Time of Discharge amitriptyline (ELAVIL) 25 mg tablet take 1 [...] Diagnosis Comments PLASMA BASIC METABOLIC PANEL Routine 05/28/2013 5:43 AM CERTIFIED ADAPTED PHYSICAL EDUCATOR DISCHARGE LABORATORY CUMULATIVE REPORT 05/28/2013 documented in this encounter Results * (ABNORMAL) Plasma basic metabolic panel (05/28/2013 5:43 AM CERTIFIED ADAPTED PHYSICAL EDUCATOR) [facility] Sodium 140 135 - 145 mmol/L HISTORICAL RESULTS K, pl 3.7 3.5 - 5.1 mmol/L HISTORICAL RESULTS Chloride 105 100 - 114 mmol/L HISTORICAL RESULTS CO2 29 22 - 32 mmol/L HISTORICAL RESULTS BUN 27(H) 10 - 26 mg/dl HISTORICAL RESULTS Glucose 128 70 - 199 mg/dl HISTORICAL RESULTS A. gap 10 8 - 16 mmol/L HISTORICAL RESULTS Creatinine 1.18 0.60 - 1.30 mg/dl HISTORICAL RESULTS Calcium 10.5 8.4 - 10.5 mg/dl HISTORICAL RESULTS eGFR 45 90 - 200 ml/min/1.7 3 m2 HISTORICAL RESULTS Comment: If this individual is -[place], multiply result by 1.21 Repeated results of less than 60 is indicative of chronic kidney disease. MDRD formula has not been validated on individuals greater than 70 years old. Plasma 05/28/2013 5:43 AM CERTIFIED ADAPTED PHYSICAL EDUCATOR Narrative HISTORICAL RESULTS - 05/28/2013 8:30 AM CERTIFIED ADAPTED PHYSICAL EDUCATOR Test performed at [facility], [address] [place] [address],[place], [place], [facility], [address]. Elpidio Vásquez MD LAB BLOOD ORDERABLES Fi nal Result HISTORICAL RESULTS * DISCHARGE LABORATORY CUMULATIVE REPORT (05/28/2013) Narrative 05/28/2013 Ordered by an unspecified provider. us Historical Provider LAB BLOOD ORDERABLES Bárbara l Result documented in this encounter Visit Diagnoses Diagnosis Shortness of breath documented in this encounter Care Teams Balancer Scale Relationship Specialty Start Date End Date Jarrell Garrison MD PCP - General 01/25/11 09/25/15 documented as of this encounter
--- OUTSIDE RECORDS SUMMARY | 2024-05-26 13:03 | XMS_ITS | Encounter Summary ---
Author Organization [facility] Healthcare Address [address] [place] [address] Care Team Providers Care Copy Lathe Operator Name Role Phone Jarrell Garrison MD Primary Care Provider [phone] Encounter Details Date Type Department Care Team (Late st Contact Info) Description 05/13/2013 10:23 AM EDGE STITCHER - 05/13/2013 2:15 PM EDGE STITCHER Hospital Encounter [facility] Akash Anne MD [address] [place] [address] Acute upper respiratory infection; Viral infection in conditions classified elsewhere and of unspecified site; Type 2 or unspecified type diabetes mellitus; Essential hypertension Social History Tobacco Use Types Packs/Day Years Used Date Smoking Tobacco: Never Alcohol Use Standard Drinks/Week Comments No 0 (1 standard drink = 0.6 oz pur e alcohol) Comments Unknown Sex and Gender Information Value Date Recorded Sex Assigned at Not on file Legal Sex Female 6:56 PM EDGE STITCHER Gender Identity Not on file Sexual Orientation [...] Name Priority Date/Time Associated Diagnosis Comments DISCHARGE CUMULATIVE SUMMARY ADDENDUM Routine 05/19/2013 12:31 AM EDGE STITCHER INFLUENZA A, B AG Routine 05/13/2013 12: 05 PM EDGE STITCHER XR CHEST PA LATERAL 2 VIEWS Routine 05/13/2013 11:41 AM EDGE STITCHER URINE MICROSCOPY Routine 05/13/2013 11:3 8 AM EDGE STITCHER URINALYSIS Routine 05/13/2013 11:38 AM EDGE STITCHER SERUM MAGNESIUM Routine 05/13/2013 11:20 AM EDGE STITCHER SERUM COMPREHENSIVE METABOLIC PANEL Routine 05/13/2013 11:20 AM EDGE STITCHER PLASMA PROTHROMBIN TIME (PT) Routine 05/13/2013 11:20 AM EDGE STITCHER PLASMA PARTIAL THROMBOPLASTIN TIME (PTT) Routine 05/13/2013 11:20 AM EDGE STITCHER BLOOD WBC CELL MORPHOLOGIC EXAM, AUTO Routine 05/13/2013 11:20 AM EDGE STITCHER BLOOD CELL COUNT (CBC) Routine 3 11:20 AM EDGE STITCHER SERUM TROPONIN I Routine 05/13/2013 5:20 AM EDGE STITCHER BLOOD B-TYPE NATRIURETIC PEPTIDE (BNP) Routine 05/13/2013 5:20 AM EDGE STITCHER ELECTROCARDIOGRAPHY (ECG) 05/13/2013 MICROBIOLOGY SUMMARY Routine 05/13/2013 12:00 AM EDGE STITCHER DISCHARGE LABORATORY CUMULATIVE REPORT Routine 05/13/2013 12:00 AM EDGE STITCHER documented in this encounter Results * Discharge Cumulative Summary Addendum (05/19/2013 12:31 AM EDGE STITCHER) 05/19/2013 12:3 1 AM EDGE STITCHER Narrative HISTORICAL RESULTS - 05/19/2013 12:31 AM EDGE STITCHER Patient No: [id number] ? [facility] Patient Name: LOC ANDERSON ? [facility] Age: 72 YRS ?: 1940 ?Sex:F ?[address] ?? Adm Dt: 05/13/2013 ?[place], [place] ??[address] Created: 05/19/2013 ??0031 ?? Pt. Type: E ? Discharge Dt: 05/13/2013 ? Pathologists: Nadja Zhang MD Admit Attend Dr: AKASH GARCIA MD ? MICRO - BLOOD BLOOD CULTURE ? Collected: 05/13/13 1120 ? Received: 05/13/13 1202 Source: BLOOD ? Started: 05/13/13 1226 ?1OF2 LAC [id number] ? PRELIMINARY REPORT ?05/14/131999 ? NO GROWTH AT 1 DAY ? FINAL REPORT ?05/18/13 1030 ? NO GROWTH AT 5 DAYS BLOOD CULTURE ? Collected: 05/13/13 1125 ? Received: 05/13/13 1202 Source: BLOOD ? Started: 05/13/13 1226 ?2OF2 [facility] [id number] ? PRELIMINARY REPORT ?05/14/131999 ? NO GROWTH AT 1 DAY ? FINAL REPORT ?05/18/13 1030 ? NO GROWTH AT 5 DAYS ?? END OF CHART ? Page: ?? 1 us Historical Provider MD LAB MICROBIOLOGY - GENERA L ORDERABLES Final Result Performing Organization Address City/[facility]/ZIP Co de Phone Number HISTORICAL RESULTS * Influenza A, B ag (05/13/2013 12:05 PM EDGE STITCHER) Influ A ag, nasopharyngeal Negative HISTORICAL RESULTS Comment:NEGATIVE RESULTS FOR THIS ASSAY ARE CONSIDERED PRESUMPTIVE Influ B ag, nasopharyngeal Negative HISTORICAL RESULTS Miscellaneous 05/13/2013 12: 05 PM EDGE STITCHER Akash Garcia MD LAB BLOOD ORDERABLE S Final Result Performing Organization Address [facility] de Phone Number HISTORICAL RESULTS * XR Chest PA Lateral 2 View (05/13/2013 11:41 AM EDGE STITCHER) Anatomical Region Laterality Modality Body, Chest N/A Radiographic Mireya ging 05/13/2013 11:4 1 AM EDGE STITCHER Narrative 05/17/2013 11:23 AM EDGE STITCHER XR Chest 2 Views ?[id number] ??Acc#: ??[id number] DATE OF EXAM: ??May 13 2013 CLINICAL HISTORY: Bad cough. ??Some chest pain. RESULT: PA and lateral views of the chest show a normal appearing heart and pulmonary vessels. ??There are calcified right hilar and peritracheal nodes due to old granulomatous disease. ??There is some moderate degenerative spurring in the dorsal spine and mild dorsal kyphosis. ??A few arteriosclerotic plaques are seen in the aorta. ??Bronchitis may be present without radiographic findings, but no definite pneumonia was noted. IMPRESSION: 1. OLD GRANULOMATOUS DISEASE WITH CALCIFIED HILAR AND PERITRACHEAL NODES. 2. DEGENERATIVE SPURRING DORSAL SPINE. 3. ARTERIOSCLEROTIC AORTA. Interpreting Physician: ??SAMANTHA CRUZ M.D. ??Read on: ??May 14 2013 11:20A Transcribed by: ??KEYLAR ??On: May 14 2013 12:49P Approved Electronically by: ??SAMANTHA CRUZ M.D. ??on: ??May 17 2013 11:23A Ordering DR: DR AKASH GARCIA Attending DR: LIZZY CERVANTES Procedure Note Provider, Desiree, - 09/11/2016 XR Chest 2 Views [id number] Acc#: [id number] DATE OF EXAM: May 13 2013 CLINICAL HISTORY: Bad cough. Some chest pain. RESULT: PA and lateral views of the chest show a normal appearing heart andpulmonary vessels. There are calcified right hilar and peritracheal nodesdue to old granulomatous disease. There is some moderate degenerativespurring in the dorsal spine and mild dorsal kyphosis. A fewarteriosclerotic plaques are seen in the aorta. Bronchitis may be presentwithout radiographic findings, but no definite pneumonia was noted. IMPRESSION: 1. OLD GRANULOMATOUS DISEASE WITH CALCIFIED HILAR AND PERITRACHEALNODES. 2. DEGENERATIVE SPURRING DORSAL SPINE. 3. ARTERIOSCLEROTIC AORTA. Interpreting Physician: SAMANTHA CRUZ M.D. Read on: May 14 201311:20A Transcribed by: MARIZOL On: May 14 2013 12:49P Approved Electronically by: SAMANTHA CRUZ M.D. on: May 17 201311:23A Ordering DR: DR AKASH GARCIA Attending DR: LIZZY CERVANTES us Historical Provider MD GOMES XR PROCEDURES Final R esult * (ABNORMAL) Urinalysis (05/13/2013 11:38 AM EDGE STITCHER) Color, ur YELLOW YELLOW HISTORICAL RESULTS Clarity, ur CLEAR CLEAR HISTORIC AL RESULTS Specific gravity, ur 1.013 1.000 - 1.030 gu HISTORICAL RESULTS Leukocyte esterase, ur Trace(A) NEGATIVE HISTORICAL RESULTS Nitrites, ur Negative NEGATIVE HISTORI MCKENNA RESULTS pH, ur 6.0 6.0 HISTORICAL RESULTS Protein, ur Negative NEGATIVE HISTORIC AL RESULTS Glucose, ur Negative NEGATIVE HISTORIC AL RESULTS Ketones, ur Negative NEGATIVE HISTORIC AL RESULTS Urobilinogen, quant, ur 1.0 0.2 - 1.0 mg/dl HISTORICAL RESULTS Bilirubin, ur Negative NEGATIVE HISTOR ICAL RESULTS U Blood Negative NEGATIVE HISTORICAL RESULTS Urine 05/13/2013 11:3 8 AM EDGE STITCHER Akash Garcia MD LAB BLOOD ORDERABLE S Final Result Performing Organization Address [facility] de Phone Number HISTORICAL RESULTS * (ABNORMAL) Urine microscopy (05/13/2013 11:38 AM EDGE STITCHER) WBC, ur 2 - 5(A) 0 - 2 /hpf HISTORICA L RESULTS RBC, ur 0 - 2 0 - 5 /hpf HISTORICA L RESULTS Epithelial cells, ur 2 - 5(A) 0 - 2 /hpf HISTORICAL RESULTS Bacteria, ur Negative NEGATIVE /hpf HISTORICAL RESULTS Hyaline casts NOTSEEN 0 - 4 /lpf HISTO RICAL RESULTS Crystals, ur Negative NEGATIVE HISTORI MCKENNA RESULTS Yeast, ur Negative NEGATIVE HISTORICAL RESULTS Pathological casts, ur Negative NEGATIVE HISTORICAL RESULTS Urine 05/13/2013 11:3 8 AM EDGE STITCHER Akash Garcia MD LAB BLOOD ORDERABLE S Final Result Performing Organization Address [facility] Phone Number HISTORICAL RESULTS * Plasma partial thromboplastin time (PTT) (05/13/2013 11:20 AM EDGE STITCHER) APTT 24.2 -<35. seconds HISTOR ICAL RESULTS Plasma 05/13/2013 11:2 0 AM EDGE STITCHER Akash Garcia MD LAB BLOOD ORDERABLE S Final Result Performing Organization Address [facility] de Phone Number HISTORICAL RESULTS * Plasma prothrombin time (PT) (05/13/2013 11:20 AM EDGE STITCHER) Prothrombin time (PT) 12.8 11.1 - 14.4 seconds HISTORICAL RESULTS INR 1.00 HISTORICAL RESULTS Comment: RECOMMENDED RANGES FOR OROTIME INR: NOTE: THE INR HAS BEEN VALIDATED ONLY FOR PATIENTS ON STABLE ORAL ?ANTICOAGULANT THERAPY. ?2.0 - 3.0 ??PROPHYLAXIS OF VENOUS THROMBOSIS (HIGH RISK SURGERY) ?2.0 - 3.0 ??TREATMENT OF VENOUS THROMBOSIS ?2.0 - 3.0 ??TREATMENT OF PULMONARY EMBOLISM ?2.0 - 3.0 ??PREVENTION OF SYSTEMIC EMBOLISM ? TISSUE HEART VALVES ? AMI (TO PREVENT SYSTEMIC EMBOLISM)* ? VALVULAR HEART DISEASE ? ATRIAL FIBRILLATION ?2.5 - 3.5 ??MECHANICAL PROSTHETIC VALVES (HIGH RISK) ?2-0 - 3.0 ??BILEAFLET MECHANICAL VALVE IN AORTIC POSITION *If oral anticoagulant therapy is elected to prevent recurrent myocardial infarction, an INR of 2.5 to 3.5 is recommended, consistent with Food and Drug Administration recommendations. Plasma 05/13/2013 11:2 0 AM EDGE STITCHER Akash Garcia MD LAB BLOOD ORDERABLE S Final Result HISTORICAL RESULTS * Serum magnesium (05/13/2013 11:20 AM EDGE STITCHER) Pathologist [facility] Magnesium 1.9 1.5 - 2.2 mg/dl HISTORICAL RESULTS Serum 05/13/2013 11:2 0 AM EDGE STITCHER Akash Garcia MD LAB BLOOD ORDERABLE S Final Result HISTORICAL RESULTS * (ABNORMAL) Blood cell count (CBC) (05/13/2013 11:20 AM EDGE STITCHER) Pathologist [facility] WBC 5.7 4.0 - 10.5 K/cumm HISTORICAL RESULTS RBC 4.67 4.20 - 5.40 M/cumm HISTORICAL RESULTS Hgb 14.2 12.0 - 16.0 g/dl HISTORICAL RESULTS Hct 41.6 37.0 - 47.0 % HISTORICAL RESULTS MCV 89.1 77.0 - 97.0 fl HISTORICAL RESULTS MCH 30.4 23.0 - 34.0 pg HISTORICAL RESULTS MCHC 34.1 32.0 - 36.0 g/dl HISTORICAL RESULTS Rdw 13.7 11.5 - 14.5 % HISTORICAL RESULTS Platelets 286 150 - 451 K/cumm HISTORICAL RESULTS MPV 10.7(H) 7.4 - 10.4 fl HISTORICAL RESULTS Blood specimen (specimen) 05/13/2013 11:20 AM EDGE STITCHER Akash Garcia MD LAB BLOOD ORDERABLE S Final Result HISTORICAL RESULTS * (ABNORMAL) Blood WBC cell morphologic exam, auto (05/13/2013 11:20 AM EDGE STITCHER) Lymphocytes 15.9(L) 25.0 - 33.0 % HISTORICAL RESULTS Monos 19.8(H) 1.0 - 13.0 % HISTORICAL RESULTS Neutrophils 61.2 54.0 - 69.0 % HISTORICAL RESULTS Eosinophils 2.5 0.0 - 10.0 % HISTORICAL RESULTS Basophils 0.4 0.0 - 1.0 % HISTORICAL RESULTS Immature granulocytes 0.2 0.0 - 1.0 % HISTORICAL RESULTS Lymphocytes, abs 0.9(L) 1.2 - 3.4 K/cumm HISTORICAL RESULTS Monocytes, absolute 1.1 1.1 - 1.9 K/cumm HISTORICAL RESULTS Neutrophils, abs 3.5 1.4 - 6.5 K/cumm HISTORICAL RESULTS Eosinophils, abs 0.1 0.0 - 0.7 cells/cum m HISTORICAL RESULTS Basophils, abs 0.0 0.0 - 0.2 K/cumm HISTORICAL RESULTS Immature granulocyte, abs 0.0 0.0 - 0.0 K/cumm HISTORICAL RESULTS Blood specimen (specimen) 05/13/2013 11:20 AM EDGE STITCHER Akash Garcia MD LAB BLOOD ORDERABLE S Final Result HISTORICAL RESULTS * (ABNORMAL) Serum comprehensive metabolic panel (05/13/2013 11:20 AM EDGE STITCHER) BUN 16.0 6.0 - 23.0 mg/dl HISTORICAL RESULTS Sodium 138 134 - 143 mmol/L HISTORICAL RESULTS Potassium, sr 3.5 3.4 - 5.0 mmol/L HISTORICAL RESULTS Chloride 103 99 - 108 mmol/L HISTORICAL RESULTS CO2 30 23 - 32 mmol/L HISTORICAL RESULTS Glucose 111 70 - 199 mg/dl HISTORICAL RESULTS Comment: Note:The glucose is assumed non fasting Fastin-99 mg/dl Random: 70-199 mg/dl Either a fasting glucose > 126 mg/dL or a random glucose > 200 mg/dL plus symptoms is diagnostic of diabetes when confirmed on another day. Fasting values > 100 mg/dl but < 125 mg/dL are diagnostic of impaired fasting glucose. New reference ranges implemented 03/29/2013. Creatinine 0.96 0.60 - 1.30 mg/dl HISTORICAL RESULTS BUN/creat ratio 17 10 - 20 HIST ORICAL RESULTS A. gap 9 7 - 14 mmol/L HISTORICAL RESULTS Protein, sr 6.9 6.4 - 8.0 g/dl HISTORICAL RESULTS Alb 3.8 3.3 - 4.5 g/dl HISTORICAL RESULTS Alb/glob ratio 1.2 1.1 - 1.8 HISTO RICAL RESULTS Calcium 10.1(H) 8.6 - 9.8 mg/dl HISTORICAL RESULTS Bilirubin 0.4 0.0 - 1.1 mg/dl HISTORICAL RESULTS Alk phos 110 44 - 125 Units/L HISTORICAL RESULTS AST 41(H) 5 - 40 Units/L HISTORICAL RESULTS Comment:AST - NOTE REFERENCE RANGE CHANGE ALT 68 15 - 70 Units/L HISTORICAL RESULTS Serum 05/13/2013 11:2 0 AM EDGE STITCHER Akash Garcia MD LAB BLOOD ORDERABLE S Final Result HISTORICAL RESULTS * Blood B-type natriuretic peptide (BNP) (05/13/2013 5:20 AM EDGE STITCHER) Pathologist [facility] BNP 10 -<100 pg/ml HISTORIC AL RESULTS Blood specimen (specimen) 05/13/2013 5:20 AM EDGE STITCHER Narrative HISTORICAL RESULTS - 05/13/2013 6:39 AM EDGE STITCHER BNP REFERENCE RANGE <100 pg/ml Akash Garcia MD LAB BLOOD ORDERABLE S Final Result HISTORICAL RESULTS * Serum troponin I (05/13/2013 5:20 AM EDGE STITCHER) Troponin I <0.04 0.00 - 0.10 ng/ml HISTORICAL RESULTS Serum 05/13/2013 5:20 AM EDGE STITCHER Narrative HISTORICAL RESULTS - 05/13/2013 6:39 AM EDGE STITCHER NEGATIVE: ??0.00 - 0.10 NG/ML INDETERMINATE: ??0.11 - 0.50 NG/ML POSITIVE: ??GREATER THAN 0.50 NG/ML Akash Garcia MD LAB BLOOD ORDERABLE S Final Result HISTORICAL RESULTS * Microbiology Summary (05/13/2013 12:00 AM EDGE STITCHER) 05/13/2013 Narrative HISTORICAL RESULTS - 05/19/2013 12:32 AM EDGE STITCHER ? [facility] ?CLINICAL LABORATORIES ? MICROBIOLOGY REPORT PATIENT NAME: ??LOC ANDERSON ? MED RECORD#: ??[id number] BIRTHDATE: ??1940 ?? AGE: ??72 YRS SEX: F ?PATIENT#: ? [id number] ADMITTING DR: ??AKASH GARCIA MD ? ATTENDING DR: ??AKASH GARCIA MD ? ACCESSION#: ?? [id number] CREATED: ??05/19/13 ?? 0030 ? ADMIT DATE: ?? 05/13/13 ? MICRO - BLOOD BLOOD CULTURE ? Collected: 05/13/13 1120 ? Received: 05/13/13 1202 Source: BLOOD ? Started: 05/13/13 1226 ?1OF2 LAC [id number] ?//13 2000 ? NO GROWTH AT 1 DAY ?05/18/13 1030 ? NO GROWTH AT 5 DAYS BLOOD CULTURE ? Collected: 05/13/13 1125 ? Received: 05/13/13 1202 Source: BLOOD ? Started: 05/13/13 1226 ?2OF2 RAC [id number] ?//13 2000 ? NO GROWTH AT 1 DAY ?05/18/13 1030 ? NO GROWTH AT 5 DAYS ? MICRO - URINE URINE CULTURE ? Collected: 05/13/13 1138 ? Received: 05/13/13 1224 Source: CLEAN CATCH URINE ? Started: 05/13/13 1229 ?05/14/13 0616 ? LESS THAN 10,000 CFU/ml MULTIPLE GRAM POSITIVE ORGANISMS ? (SENSITIVITIES NOT PERFORMED) ?05/15/13 0656 ? 10,000-50,000 CFU/ML MULTIPLE GRAM POSITIVE ORGANISMS ? (SENSITIVITIES NOT PERFORMED) ?? END OF CHART us Historical Provider MD LAB MICROBIOLOGY - GENERA L ORDERABLES Final Result HISTORICAL RESULTS * Discharge Laboratory Cumulative Report (05/13/2013 12:00 AM EDGE STITCHER) 05/13/2013 Narrative HISTORICAL RESULTS - 05/14/2013 12:28 AM EDGE STITCHER Patient No: [id number] ? [facility] Patient Name: LOC ANDERSON ? [facility] Age: 72 YRS ?: 1940 ?Sex:F ?[address] )[phone] ?? Adm Dt: 05/13/2013 ?[place], [place] ??[address] Created: 05/14/2013 ??0028 ?? Pt. Type: E ? Discharge Dt: 05/13/2013 ? Pathologists: Nadja Zhang MD Admit Dr. Trevino Dr: AKASH GARCIA MD ? BLOOD CELL COUNTS ?Collection Date: ?05/13/13 ?Collection Time: ?1120 ? Ref Range: ?? Units: [4.00-10.50] /CMM ? WBC X 10^3 ?5.66 [4.20-5.40] ??/CMM ? RBC X 10^6 ?4.67 [12.0-16.0] ??G/DL ? HGB ? 14.2 [37.0-47.0] ??% ?HCT ? 41.6 [77.0-97.0] ??FL ? MCV ? 89.1 [23.0-34.0] ??PG ? MCH ? 30.4 [32.0-36.0] ??% ?MCHC ?34.1 [11.5-14.5] ??% ?RDW ? 13.7 [150-451] ?? /CMM ? PLT X 10^3 ? 286 ?BLOOD CELL DIFFERENTIAL ?Collection Date: ?12/26/13 ?Collection Time: ?1120 ? Ref Range: ?? Units: [54.0-69.0] ??% ?NEUTROPHILS ? 61.2 [25.0-33.0] ??% ?LYMPHOCYTES ? 15.9 L [1.0-13.0] ??% ?MONOCYTES ? 19.8 H [0.0-10.0] ??% ?EOSINOPHILS ?2.5 [0.0-1.0] ?? % ?BASOPHILS ?0.4 ? /CMM ? A LYMPHOCYTE ? 0.9 L [0.0-1.0] ?? % ?IMM GRAN % ? 0.2 [0.00-0.02] ??/CMM ? A IMM GRAN ?0.01 [1.1-1.9] ?? /CMM ? A MONOCYTE ? 1.1 [1.4-6.5] ?? /CMM ? A NEUTROPHIL ? 3.5 [0.0-0.7] ?? /CMM ? A EOSINOPHIL ? 0.1 [0.0-0.2] ?? /CMM ? A BASOPHIL ? 0.0 Footnotes and Symbols: L = Low, H = High ?? CONTINUED ?Page: ?? 1 Patient No: [id number] ? [facility] Patient Name: LOC ANDERSON ? [facility] Age: 72 YRS ?: 1940 ?Sex:F ?[address] )[phone] ?? Adm Dt: 05/13/2013 ?[place], [place] ??[address] Created: 05/14/2013 ??0028 ?? Pt. Type: E ? Discharge Dt: 05/13/2013 ? Pathologists: Nadja Zhang MD Admit Attend Dr: AKASH GARCIA MD ? GENERAL CHEMISTRY ?Collection Date: ?05/13/ ?Collection Time: ?1120 ? Ref Range: ?? Units: [< ?100] ?? pg/ml ?BNP ? 10 f [134-143] ?? MMOL/L ? SODIUM ? 138 [3.4-5.0] ?? MMOL/L ? POTASSIUM ?3.5 [99.0-108.0] MMOL/L ? CHLORIDE ? 103.0 [23.0-32.0] ??MMOL/L ? TOTAL CO2 ? 29.8 ?? [7-14] ?MMOL/L ? ANION GAP ?9 ??[70-199] ?? MG/DL ?GLUCOSE ?111 f [6.4-8.0] ?? G/DL ? TOTAL PROTEIN ?6.9 [3.3-4.5] ?? G/DL ? ALBUMIN ?3.8 [1.1-1.8] ?A/G RATIO ?1.2 [8.6-9.8] ?? MG/DL ?CALCIUM ? 10.1 H [0.0-1.1] ?? MG/DL ?BILI TOTAL ? 0.4 ??[44-125] ?? U/L ?ALK PHOS ? 110 ?? [5-40] ?U/L ?AST(SGOT) ? 41 Hf ??[15-70] ?U/L ?ALT(SGPT) ? 68 f [6.0-23.0] ??MG/DL ?BUN ? 16.0 ??[10-20] ? B/C RATIO ? 17 Footnotes and Symbols: H = High, f = Footnote BNP (02/26/08 -- Current) BNP REFERENCE RANGE <100 pg/ml GLUCOSE (04/20/13 -- Current) Note:The glucose is assumed non fasting Fastin-99 mg/dl Random: 70-199 mg/dl Either a fasting glucose > 126 mg/dL or a random glucose > 200 mg/dL plus symptoms is diagnostic of diabetes when confirmed on another day. Fasting values > 100 mg/dl but < 125 mg/dL are diagnostic of impaired fasting glucose. New reference ranges implemented 03/29/2013. AST(SGOT) (10/28/12 -- Current) AST ??- NOTE REFERENCE RANGE CHANGE ALT(SGPT) (12/08/12 -- Current) ?? CONTINUED ?Page: ?? 2 Patient No: [id number] ? [facility] Patient Name: LOC ANDERSON ? [facility] Age: 72 YRS ?: 1940 ?Sex:F ?[address] )[phone] ?? Adm Dt: 05/13/2013 ?[place], [place] ??[address] Created: 05/14/2013 ??0028 ?? Pt. Type: E ? Discharge Dt: 05/13/2013 ? Pathologists: Nadja Zhang MD Admit DrTyrone Attend Dr: AKASH GARCIA MD ? GENERAL CHEMISTRY ?Collection Date: ?05/13/13 ?Collection Time: ?1120 ? Ref Range: ?? Units: [0.60-1.30] ??MG/DL ?CREATININE ?0.96 [1.5-2.2] ?? MG/DL ?MAGNESIUM ?1.9 ? CARDIAC CHEMISTRY ?Collection Date: ?05/13/ ?Collection Time: ?1120 ? Ref Range: ?? Units: [0.00-0.10] ??NG/ML ?TROPONIN I ? <0.04 f Footnotes and Symbols: f = Footnote TROPONIN I (03/14/11 -- Current) NEGATIVE: ??0.00 - 0.10 NG/ML INDETERMINATE: ??0.11 - 0.50 NG/ML POSITIVE: ??GREATER THAN 0.50 NG/ML ?? CONTINUED ?Page: ?? 3 Patient No: [id number] ? [facility] Patient Name: LOC ANDERSON ? [facility] Age: 72 YRS ?: 1940 ?Sex:F ?[address] )[phone] ?? Adm Dt: 05/13/2013 ?[place], [place] ??[address] Created: 05/14/2013 ??0028 ?? Pt. Type: E ? Discharge Dt: 05/13/2013 ? Pathologists: Nadja Zhang MD Admit Dr. Trevino Dr: AKASH GARCIA MD ?COAGULATION ? Units: ?? PROTIME ?INR ?APTT PAT ? Low: ??[11.1-14.4] ? [< ?? 35.4] ? Ref Range: ? SECS ?SECS ? 05/13/13 1120 ?12.8 ? 1.00 f ? 24.2 Footnotes and Symbols: f = Footnote INR (12/06/99 -- Current) RECOMMENDED RANGES FOR PROTIME INR: NOTE: THE INR HAS BEEN VALIDATED ONLY FOR PATIENTS ON STABLE ORAL ?ANTICOAGULANT THERAPY. ?2.0 - 3.0 ??PROPHYLAXIS OF VENOUS THROMBOSIS (HIGH RISK SURGERY) ?2.0 - 3.0 ??TREATMENT OF VENOUS THROMBOSIS ?2.0 - 3.0 ??TREATMENT OF PULMONARY EMBOLISM ?2.0 - 3.0 ??PREVENTION OF SYSTEMIC EMBOLISM ? TISSUE HEART VALVES ? AMI (TO PREVENT SYSTEMIC EMBOLISM)* ? VALVULAR HEART DISEASE ? ATRIAL FIBRILLATION ?2.5 - 3.5 ??MECHANICAL PROSTHETIC VALVES (HIGH RISK) ?2.0 - 3.0 ??BILEAFLET MECHANICAL VALVE IN AORTIC POSITION *If oral anticoagulant therapy is elected to prevent recurrent myocardial infarction, an INR of 2.5 to 3.5 is recommended, consistent with Food and Drug Administration recommendations. ?? CONTINUED ?Page: ?? 4 Patient No: [id number] ? [facility] Patient Name: LOC ANDERSON ? [facility] Age: 72 YRS ?: 1940 ?Sex:F ?[address] )[phone] ?? Adm Dt: 05/13/2013 ?[place] ??[address] Created: 05/14/2013 ??0028 ?? Pt. Type: E ? Discharge Dt: 05/13/2013 ? Pathologists: Nadja Zhang MD Admit Attend Dr: AKASH GARCIA MD ? SEROLOGY ?Collection Date: ?12/26/13 ?Collection Time: ?1205 ? Ref Range: ?? Units: ?INFLUENZA A AG ?NEGATIVE f ?INFLUENZA B AG ?NEGATIVE ?URINALYSIS ?Collection Date: ?05/13/ ?Collection Time: ?1138 ? Ref Range: ?? Units: [YELLOW] ? U COLOR ? YELLOW ??[CLEAR] ? U APPEARANCE ? CLEAR [1.000-1.030] ? U SPEC GRAVITY ? 1.013 [NEGATIVE] ?U LEUKO ESTRASE ?TRACE * [NEGATIVE] ?U NITRITE ? NEGATIVE ?? [6.0] ?U PH ? 6.0 [NEGATIVE] ?U PROTEIN ? NEGATIVE [NEGATIVE] ?U GLUCOSE ? NEGATIVE [NEGATIVE] ?U KETONES ? NEGATIVE [0.2- 1.0] ?UROBILINOGEN ? 1.0 [NEGATIVE] ?U BILIRUBIN ? NEGATIVE [NEGATIVE] ?U BLOOD ? NEGATIVE ?? [0-2] ?U WBC ?2-5 * ?? [0-5] ?U RBC ?0-2 ?? [0-2] ?U EPI CELLS ?2-5 * [NEGATIVE] ?U BACTERIA ?NEGATIVE ?U YEASTS ?NEGATIVE ?? [0-4] ?U HYALINE CASTS ? NOT SEEN [NEGATIVE] ?U CRYSTALS ?NEGATIVE [NEGATIVE] ?U PATH CASTS ?NEGATIVE Footnotes and Symbols: * = Abnormal, f = Footnote INFLUENZA A AG (07/31/11 -- Current) NEGATIVE RESULTS FOR THIS ASSAY ARE CONSIDERED PRESUMPTIVE ?? END OF CHART ? Page: ?? 5 us Historical Provider MD LAB BLOOD ORDERABLES Bárbara l Result HISTORICAL RESULTS * ELECTROCARDIOGRAPHY (ECG) (05/13/2013) Narrative 05/13/2013 Ordered by an unspecified provider. us Historical Provider ECG ORDERABLES Final Res ult documented in this encounter Visit Diagnoses Diagnosis Acute upper respiratory infection Acute upper respiratory infections of unspecified site Viral infection in conditions classified elsewhere and of unspecified site Type 2 or unspecified type diabetes mellitus Essential hypertension Unspecified essential hypertension documented in this encounter Care Teams Copy Lathe Operator Relationship Specialty Start Date End Date Jarrell Garrison MD PCP - General 01/25/11 09/25/15 documented as of this encounter
--- OUTSIDE RECORDS SUMMARY | 2024-05-26 13:03 | XMS_ITS | Encounter Summary ---
Author Organization [facility] Healthcare Address [address] [place] [address] Care Team Providers Care Tab Card Press Operator Name Role Phone Jarrell Garrison MD Primary Care Provider [phone] Encounter Details Date Type Department Care Team (Late st Contact Info) Description 12/18/2011 10:14 AM CDT - 12/18/2011 11:59 PM CDT Hospital En[place] [id number] [facility] [address] [place], [place] [id number] Asthma Social History Tobacco Use Types Packs/Day Years Used Date Smoking Tobacco: Never Assessed Comments Unknown Sex and Gender Information Value Date Recorded Sex Assigned at Not on file Legal Sex 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
--- OUTSIDE RECORDS SUMMARY | 2024-05-26 13:03 | XMS_ITS | Encounter Summary ---
Author Organization [facility] Healthcare Address [address] [place] [address] Care Team Providers Care Mathematical Statistician Name Role Phone Jarrell Garrison MD Primary Care Provider +1 -[phone] Encounter Details Date Type Department Care Team (Late st Contact Info) Description 09/17/2011 4:36 PM CDT - 09/17/2011 11:59 PM CDT Hospital Encounter [facility] Gr[facility] Garcia Pain in soft tissues of limb; Osteoarthrosis, hand Social History Tobacco Use Types Packs/Day Years Used Date Smoking Tobacco: Never Assessed Comments Unknown Sex and Gender Information Value Date Recorded Sex Assigned at Not on file 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
--- OUTSIDE RECORDS SUMMARY | 2024-05-26 13:03 | XMS_ITS | Encounter Summary ---
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, uncontrolled Social History Tobacco Use Types Packs/Day Years Used Date Smoking Tobacco: Never Alcohol Use Standard Drinks/Week Comments No 0 (1 standard drink = 0.6 oz pur e alcohol) Comments Unknown Sex and Gender Information Value Date Recorded Sex Assigned at Not on file Legal Sex Female 6:56 PM SECOND HAND Gender Identity Not on file Sexual Orientation [...] this encounter Visit Diagnoses Diagnosis 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
--- OUTSIDE RECORDS SUMMARY | 2024-05-26 13:03 | XMS_ITS | Encounter Summary ---
Author Organization [facility] Healthcare Address [address] [place] [address] Care Team Providers Care Dental Equipment Installer And Servicer Name Role Phone Jarrell Garrison MD Primary Care Provider [phone] [phone] Encounter Details Date Type Department Care Team (Late st Contact Info) Description 07/26/2010 7:36 AM FILM COATER - 07/26/2010 11:59 PM FILM COATER Hospital Encounter [facility]INCONV Chronic ischemic heart disease Social History Tobacco Use Types Packs/Day Years Used Date Smoking Tobacco: Never Assessed Comments Unknown Sex and Gender Information Value Date Recorded Sex Assigned at Not on file Legal Sex Female 6:56 PM FILM COATER Gender Identity Not on file Sexual Orientation [...] of this encounter Visit Diagnoses Diagnosis Chronic ischemic heart disease Unspecified chronic ischemic heart disease documented in this encounter Care Teams Dental Equipment Installer And Servicer Relationship Specialty Start Date End Date Jarrell Garrison MD PCP - General 10/29/07 01/24/11 documented as of this encounter
--- OUTSIDE RECORDS SUMMARY | 2024-05-26 13:03 | XMS_ITS | Encounter Summary ---
Author Organization [facility] Healthcare Address [address] [place] [address] Care Team Providers Care Internet E Commerce Specialist Name Role Phone Jarrell Garrison MD Primary Care Provider +1 [phone] Encounter Details Date Type Department Care Team (Late st Contact Info) Description 04/04/2010 10:13 AM HOME CARE ATTENDANT - 04/04/2010 11:59 PM HOME CARE ATTENDANT Hospital Encounter [facility] CLINCONV Social History Tobacco Use Types Packs/Day Years Used Date Smoking Tobacco: Never Assessed Comments Unknown Sex and Gender Information Value Date Recorded Sex Assigned at Not on file Legal Sex Female 6:56 PM HOME CARE ATTENDANT Gender Identity Not on file Sexual Orientation [...] on filedocumented in this encounter Care Teams Internet E Commerce Specialist Relationship Specialty Start Date End Date Jarrell Garrison MD PCP - General 10/29/07 01/24/11 documented as of this encounter
--- OUTSIDE RECORDS SUMMARY | 2024-05-26 13:03 | XMS_ITS | Encounter Summary ---
Author Organization [facility] Healthcare Address [address] [place] [address] Care Team Providers Care General Production Manager Name Role Phone Jarrell Garrison MD Primary Care Provider +1 [phone] Encounter Details Date Type Department Care Team (Late st Contact Info) Description 11/23/2013 11:26 AM CDT - 11/23/2013 11:59 PM CDT Hospital Encounter [facility] CLINCONV Yuliya Ibarra MD [address] [address] [place] [address] Type 2 or unspecified type diabetes mellitus, uncontrolled Social History Tobacco Use Types Packs/Day Years Used Date Smoking Tobacco: Never Alcohol Use Standard Drinks/Week Comments No 0 (1 standard drink = 0.6 oz pur e alcohol) Comments Unknown Sex and Gender Information Value Date Recorded Sex Assigned at Not on file Legal Sex Female 6:56 PM ZINC PLATER Gender Identity Not on file Sexual Orientation [...] Procedure Name Priority Date/Time Associated Diagnosis Comments URINE MICROALBUMIN Routine 11/23/2013 11 :32 AM CDT DISCHARGE LABORATORY CUMULATIVE REPORT 11/23/2013 documented in this encounter Results * Urine microalbumin (11/23/2013 11:32 AM CDT) Creatinine, ur 23 20 - 300 mg/dl HISTORICAL RESULTS Microalbumin <2.0 0.0 - 29.9 mcg/ml HISTORICAL RESULTS Microalbumin/crea t ratio <9 0 - 30 mcg/mg Cr HISTORICAL RESULTS Comment: Microalbumin/Creatinine Ratio Reference Ranges: Normal: ? < 30 mcg/mg Microalbuminuria: ? 30 - 300 mcg/mg Clinical Albuminuria: ??300 mcg/mg Urine 11/23/2013 11:3 2 AM CDT us Historical Provider LAB BLOOD ORDERABLES Bárbara l Result HISTORICAL RESULTS * DISCHARGE LABORATORY CUMULATIVE REPORT (11/23/2013) Narrative 11/23/2013 Ordered by an unspecified provider. us Historical Provider LAB BLOOD ORDERABLES Bárbara l Result documented in this encounter Visit Diagnoses Diagnosis Type 2 or unspecified type diabetes mellitus, uncontrolled documented in this encounter Care Teams General Production Manager Relationship Specialty Start Date End Date Jarrell Garrison MD PCP - General 01/25/11 09/25/15 documented as of this encounter
--- OUTSIDE RECORDS SUMMARY | 2024-05-26 13:03 | XMS_ITS | Encounter Summary ---
Author Organization [facility] Healthcare Address [address] [place] [address] Care Team Providers Care Webbing Supervisor Name Role Phone Jarrell Garrison MD Primary Care Provider [phone] [phone] Encounter Details Date Type Department Care Team (Latest Contact Info) Description 10/17/2010 12:01 AM CDT - 10/17/2010 11:59 PM CDT Hospital Encounter [place] [address] [address] Other symptoms involving cardiovascular system; Spinocerebellar disease (CMS/HCC) (HCC) Social History Tobacco Use Types Packs/Day Years Used Date Smoking Tobacco: Never Assessed Comments Unknown Sex and Gender Information Value Date Recorded Sex Assigned at Not on file Legal Sex Female 6:56 PM MEDICAL SERVICE REPRESENTATIVE Gender Identity Not on file Sexual [...] of this encounter Visit Diagnoses Diagnosis Other symptoms involving cardiovascular system Spinocerebellar disease (CMS/HCC) (HCC) documented in this encounter Care Teams Webbing Supervisor Relationship Specialty Start Date End Date Jarrell Garrison MD PCP - General 10/29/07 01/24/11 documented as of this encounter
--- OUTSIDE RECORDS SUMMARY | 2024-05-26 13:03 | XMS_ITS | Encounter Summary ---
Author Organization [facility] Healthcare Address [address] [place] [address] Care Team Providers Care Drawer Upfitter Name Role Phone Jarrell Garrison MD Primary Care Provider +1 [phone] Encounter Details Date Type Department Care Team (Late st Contact Info) Description 04/22/2014 8:48 AM RN MDS - 04/22/2014 11:59 PM [facility] Hospital Encounter [place] [address] [address] Cervical spondylosis without myelopathy; Arthropathy involving other sites; Nontoxic uninodular goiter Social History Tobacco Use Types Packs/Day Years Used Date Smoking Tobacco: Never Alcohol Use Standard Drinks/Week Comments No 0 (1 standard drink = 0.6 oz pur e alcohol) Comments Unknown Sex and Gender Information Value Date Recorded Sex Assigned at Not on file Legal Sex Female 6:56 PM RN MDS Gender Identity Not on file Sexual Orientation [...] Name Priority Date/Time Associated Diagnosis Comments MRI CERVICAL SPINE WO CONTRAST Routine 04/22/2014 9:09 AM RN MDS documented in this encounter Results * MRI Cervical Spine WO Contrast (04/22/2014 9:09 AM RN MDS) Anatomical Region Laterality Modality Spine N/A Magnetic Resonan ce 04/22/2014 9:09 AM RN MDS Narrative 04/25/2014 2:09 PM RN MDS DATE OF EXAM: ??Apr ??2013 ??9:09AM Acc#: ??[id number] ??WMR [id number] - MR Cervical Spine WO ?? DIAGNOSIS: ??CERVICALGIA CLINICAL HISTORY: ?? CERVICALGIA RESULT: \ MRI CERVICAL SPINE WITHOUT CONTRAST: HISTORY: Cervicalgia. Neck pain into posterior shoulder area. MRI cervical spine obtained with multiplanar, multiecho images. Comparison was made with CT cervical spine of 03/11/2012. Cervical vertebrae are normal in alignment, height and marrow signal. Mild disc narrowing at C5-6 and C6-7 is seen with end plate osteophyte from C3-4 to C7-T1 and in the upper thoracic spine. The craniovertebral junction is unremarkable. The cerebellar tonsils are normal in position. The cord signal appears normal. A more rounded ovoid 10 mm hyperintense lesion is seen at the anterior T1 body and hyperintense on both the T1 and T2-weighted sequence compatible with a hemangioma. C2-3: The disc is unremarkable. Mild facet arthropathy is seen. C3-4: The disc is unremarkable. Left more than right facet arthropathy noted. C4-5: Disc bulge with very small central protrusion is seen with slight sac effacement. Mild facet arthropathy is noted. C5-6: Right uncovertebral osteophyte ??seen involving the lateral recess with moderate right foraminal stenosis, probably impinging the C6 root. The left foramina appears patent. No central stenosis seen. C6-7: Mild disc bulging, spondylosis with facet arthropathy without canal stenosis is seen. C7-T1: Facet arthropathy without canal or foraminal stenosis noted. T2-T3: ?? A very small right paracentral protrusion is seen with sac effacement but no cord impingement. There is an 8 mm right thyroid nodule with T2 hyperintensity noted. IMPRESSION: ?\ 1. SMALL PROTRUSION AT C4-5 WITHOUT CORD IMPINGEMENT. 2. 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 3. MILD C6-7 SPONDYLOSIS AND FACET ARTHROPATHY WITH NO CANAL STENOSIS. 4. C7-T1 FACET ARTHROPATHY. 5. SMALL RIGHT THYROID NODULE. CORRELATE WITH ULTRASOUND. ? 6. SMALL RIGHT PROTRUSION AT T2-T3. ? CONVERSION DEVELOPER: ??LB3 TRANSCRIBE DATE/TIME: ??Apr ??2013 12:31P RADIOLOGIST: ??WESTON ARANGO M.D. ??READ ON: ??Apr ??2013 ??9:08A ORDERING DR: KASANDRA PAYNE M.D. THIS DOCUMENT HAS BEEN ELECTRONICALLY SIGNED BY: ??WESTON ARANGO M.D. ??ON: ??Apr ??2013 ??2:09P Requesting Fax: ??[phone] Procedure Note Provider, MD Desiree - 09/11/2016 DATE OF EXAM: Apr 22 2014 9:09AM Acc#: [id number] WMR [id number] - MR Cervical Spine WO DIAGNOSIS: CERVICALGIA CLINICAL HISTORY: CERVICALGIA RESULT: \ MRI CERVICAL SPINE WITHOUT CONTRAST: HISTORY: Cervicalgia. Neck pain into posterior shoulder area. MRI cervical spine obtained with multiplanar, multiecho images. Comparison was made with CT cervical spine of 03/11/2012. Cervical vertebrae are normal in alignment, height and marrow signal. Mild disc narrowing at C5-6 and C6-7 is seen with end plate osteophyte from C3-4 to C7-T1 and in the upper thoracic spine. The craniovertebral junction is unremarkable. The cerebellar tonsils are normal in position. The cord signal appears normal. A more rounded ovoid 10 mm hyperintense lesion is seen at the anterior T1 body and hyperintense on both the T1 and T2-weighted sequence compatible with a hemangioma. C2-3: The disc is unremarkable. Mild facet arthropathy is seen. C3-4: The disc is unremarkable. Left more than right facet arthropathy noted. C4-5: Disc bulge with very small central protrusion is seen with slight sac effacement. Mild facet arthropathy is noted. C5-6: Right uncovertebral osteophyte seen involving the lateral recess with moderate right foraminal stenosis, probably impinging the C6 root. The left foramina appears patent. No central stenosis seen. C6-7: Mild disc bulging, spondylosis with facet arthropathy without canal stenosis is seen. C7-T1: Facet arthropathy without canal or foraminal stenosis noted. T2-T3: A very small right paracentral protrusion is seen with sac effacement but no cord impingement. There is an 8 mm right thyroid nodule with T2 hyperintensity noted. IMPRESSION: \ 1. SMALL PROTRUSION AT C4-5 WITHOUT CORD IMPINGEMENT. 2. 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 3. MILD C6-7 SPONDYLOSIS AND FACET ARTHROPATHY WITH NO CANAL STENOSIS. 4. C7-T1 FACET ARTHROPATHY. 5. SMALL RIGHT THYROID NODULE. CORRELATE WITH ULTRASOUND. 6. SMALL RIGHT PROTRUSION AT T2-T3. CONVERSION DEVELOPER: LB3 TRANSCRIBE DATE/TIME: Apr 25 2014 12:31P RADIOLOGIST: WESTON ARANGO M.D. READ ON: Apr 25 2014 9:08A ORDERING DR: KASANDRA PAYNE M.D. THIS DOCUMENT HAS BEEN ELECTRONICALLY SIGNED BY: WESTON ARANGO M.D. ON: Apr 25 2014 2:09P Requesting us Historical Provider MD GOMES MRI PROCEDURES Final Result documented in this encounter Visit Diagnoses Diagnosis Cervical spondylosis without myelopathy Arthropathy involving other sites Nontoxic uninodular goiter documented in this encounter Care Teams Drawer Upfitter Relationship Specialty Start Date End Date Jarrell Garrison MD PCP - General 01/25/11 09/25/15 documented as of this encounter
--- OUTSIDE RECORDS SUMMARY | 2024-05-26 13:03 | XMS_ITS | Encounter Summary ---
Author Organization [facility] Healthcare Address [address] [place] [address] Care Team Providers Care Head Concierge Name Role Phone Jarrell Garrison MD Primary Care Provider +1 -[phone] Encounter Details Date Type Department Care Team (Late st Contact Info) Description 04/06/2014 9:10 AM INDUSTRIAL ACCOUNTANT - 04/06/2014 11:59 PM [facility] Hospital Encounter [place] [address] [facility] [address] [place], [place] [id number] Asthma Social History Tobacco Use Types Packs/Day Years Used Date Smoking Tobacco: Never Alcohol Use Standard Drinks/Week Comments No 0 (1 standard drink = 0.6 oz pur e alcohol) Comments Unknown Sex and Gender Information Value Date Recorded Sex Assigned at Not on file Legal Sex Female 6:56 PM INDUSTRIAL ACCOUNTANT Gender Identity Not on file Sexual Orientation [...] asthma documented in this encounter Care Teams Head Concierge Relationship Specialty Start Date End Date Jarrell Garrison MD PCP - General 01/25/11 09/25/15 documented as of this encounter
--- OUTSIDE RECORDS SUMMARY | 2024-05-26 13:03 | XMS_ITS | Encounter Summary ---
Author Organization [facility] Healthcare Address [address] [place] [address] Care Team Providers Care Sanitary Landfill Supervisor Name Role Phone Jarrell Garrison MD Primary Care Provider +1 -[phone] Encounter Details Date Type Department Care Team (Latest Contact Info) Description 09/06/2010 4:52 PM CDT - 09/06/2010 8:05 PM CDT Hospital Encounter [facility] Laz Valencia MD [address] [place], [place] [id number] Coronary atherosclerosis of [place] coronary artery Social History Tobacco Use Types Packs/Day Years Used Date Smoking Tobacco: Never Assessed Comments Unknown Sex and Gender Information Value Date Recorded Sex Assigned at Not on file Legal Sex Female 6:56 PM COMMERCIAL ARTIST Gender Identity Not on file Sexual Orientation [...] as of this encounter Visit Diagnoses Diagnosis Coronary atherosclerosis of [place] coronary artery documented in this encounter Care Teams Sanitary Landfill Supervisor Relationship Specialty Start Date End Date Jarrell Garrison MD PCP - General 10/29/07 01/24/11 documented as of this encounter
--- OUTSIDE RECORDS SUMMARY | 2024-05-26 13:03 | XMS_ITS | Encounter Summary ---
Author Organization [facility] Healthcare Address [address] [place] [address] Care Team Providers Care Manager Heavy Duty Name Role Phone Jarrell Garrison MD Primary Care Provider +1 -[phone] Encounter Details Date Type Department Care Team (Late st Contact Info) Description 03/11/2012 7:08 PM CDT - 03/12/2012 1:06 AM CDT Hospital [place] [address] [facility] [address] [place] [address] Open wound of finger; Contusion of scalp, face, or neck, excluding eyes; Cervicalgia; Pain in joint, pelvic region and thigh; Fall resulting in striking against other object; Striking against or struck accidentally by other stationary object without subsequent fall; Unspecified place of occurrence; Encounter for long-term use of antiplatelets/antithr ombotics Social History Tobacco Use Types Packs/Day Years Used Date Smoking Tobacco: Never Assessed Comments Unknown Sex and Gender Information Value Date Recorded Sex Assigned at Not on file Legal Sex Female 6:56 PM SEMICONDUCTOR PACKAGES PLATEMAKER Gender Identity Not on file Sexual Orientation [...] as of this encounter Visit Diagnoses Diagnosis Open wound of finger Open wound of finger(s) , without mention of complication Contusion of scalp, face, or neck, excluding eyes Cervicalgia Pain in joint, pelvic region and thigh Fall resulting in striking against other object Striking against or struck accidentally by other stationary object without subsequent fall Unspecified place of occurrence Encounter for long-term use of antiplatelets/antithrombotics Encounter for long-term (current) use of antiplatelets/antithrombotics documented in this encounter Care Teams Manager Heavy Duty Relationship Specialty Start Date End Date Jarrell Garrison MD PCP - General 01/25/11 09/25/15 documented as of this encounter
--- OUTSIDE RECORDS SUMMARY | 2024-05-26 13:03 | XMS_ITS | Encounter Summary ---
Author Organization [facility] Healthcare Address [address] [place] [address] Care Team Providers Care Compliance Project Manager Name Role Phone Jarrell Garrison MD Primary Care Provider +1 -[phone] Encounter Details Date Type Department Care Team (Late st Contact Info) Description 02/08/2015 7:56 PM CDT - 02/09/2015 11:59 PM CDT Hospital Encounter [place] [address] [facility] [address] [place], [place] [id number] Obstructive sleep apnea; Narcolepsy without cataplexy; Uncomplicated asthma Social History Tobacco Use Types Packs/Day Years Used Date Smoking Tobacco: Never Alcohol Use Standard Drinks/Week Comments No 0 (1 standard drink = 0.6 oz pur e alcohol) Comments Unknown Sex and Gender Information Value Date Recorded Sex Assigned at Not on file Legal Sex Female 6:56 PM DIESEL PILE HAMMER OPERATOR Gender Identity Not on file Sexual [...] 1 CAPSULE DAILY 90 1 01/29/2007 1 glimepiride (AMARYL) 1 mg tablet take 1.5 tablet by oral route with breakfast, 2 tablets with lunch and 2.5 tablets with dinner 180 5 08/05/2014 9 latanoprost (XALATAN) 0.005 % ophthalmic solution [...] Procedure Name Priority Date/Time Associated Diagnosis Comments SLEEP STUDY NOTES 02/08/2015 PSG (SIMPLE) Routine 02/08/2015 12:00 AM CDT documented in this encounter Results * SLEEP STUDY NOTES (02/08/2015) Narrative 02/08/2015 Ordered by an unspecified provider. us Historical Provider SLEEP CENTER ORDERABLES F inal Result * PSG (SIMPLE) (02/08/2015 12:00 AM CDT) 02/08/2015 Narrative HISTORICAL RESULTS - 02/15/2015 4:10 PM CDT ?SLEEP DISORDER REPORT Patient: ??LOC ANDERSON Account: ??[id number] ? Room No: : ?1938 ? Patient Type: ??CLI Attend.: ??Russell Moran M.D. ? Admit Date: ?02/08/2015 Dict.: ?Emile Hernandez M.D. ? Disch. Date: ?SLEEP DISORDER CENTER REPORT DATE: ??02/08/2015. This is a repeat continuous positive airway pressure titration followed by multiple sleep latency testing if possible. ??The patient had sleep study performed on 02/08/2015. ??The patient had 6.3 hours of sleep totally with an overall apnea/hypopnea index of 84% sleep efficiency and oxyhemoglobin saturation fell to as low as 84%. ??Her best continuous positive airway pressure reading was on continuous positive airway pressure at 11 using an EPR or expiratory pressure relief of -2 for 4.8 hours. ??The patient during that period of time had an O2 sat that remained 86% or greater and sleep efficiency of 86%. The patient's rapid eye movement latency was short at 65 1/2 minutes. ??The patient's sleep latency was 170 minutes overall for the total test but on the continuous positive airway pressure as noted. ??The patient then had multiple naps recorded as part of the multiple sleep latency testing. ??The patient's continuous positive airway pressure was set at 11 for this. ??Patient had sleep onset that was rapid without rapid eye movement on any of the naps. ??The patient had a sleep onset that was 2 1/2, 4, 3 1/2, 4 1/2 and 11 1/2 minutes on the fifth nap. ??The patient's overall mean sleep latency was five minutes but the patient did not have many rapid eye movement stage sleep associated with these naps. ?IMP The patient, therefore, has no significant evidence for narcolepsy. ??She does have pathologic sleepiness. ??The patient should have an evaluation of thyroid function in addition to the patient should have continuation of continuous positive airway pressure at 11. ??Exercise and weight loss may be helpful in view of the body mass index elevation of 33 consistent with Class I morbid obesity. ??The patient should be used given a small Quattro airflow face mask and followed for her response to therapy on continuous positive airway pressure at 11. ??She should have download of continuous positive airway pressure compliance after 31 days of use. ??Monitoring of sleep adequacy is recommended with the use of such things as a Fitbit to document adequate hours allowed for sleep over the ensuing 4-6 weeks. ??Patient should be followed carefully for her response to therapy. ??Download of continuous positive airway pressure compliance. ??If the patient remains with pathologic sleepiness despite aforementioned things consideration of stimulant therapy may be necessary if the patient is needing to stay awake for job or work or driving, however, the patient should be encouraged to have more time allowed for sleep. ??Therapeutic naps may be helpful. ??Patient should be followed carefully. Electronically Authenticated and Edited by: Emile Hernandez MD On 02/15/2015 03:56 PM CDT Emile Hernandez M.D. JORGE/monica Job #: ??[id number] DD: ??02/10/2015 15:20 TD: ??02/13/2015 08:24 CC: Russell Moran M.D. 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
--- OUTSIDE RECORDS SUMMARY | 2024-05-26 13:03 | XMS_ITS | Encounter Summary ---
Author Organization [facility] Healthcare Address [address] [place] [address] Care Team Providers Care Manager Sales Name Role Phone Jarrell Garrison MD Primary Care Provider +1 -[phone] Encounter Details Date Type Department Care Team (Latest Contact Info) Description 08/18/2015 9:53 AM CDT - 08/18/2015 11:59 PM CDT Hospital Encounter [facility] Yuliya Ibarra MD [address] [place] [address] Type 2 diabetes mellitus without complications (CMS/HCC); Hyperparathyroidism (CMS/HCC) Social History Tobacco Use Types Packs/Day Years Used Date Smoking Tobacco: Never Alcohol Use Standard Drinks/Week Comments No 0 (1 standard drink = 0.6 oz pur e alcohol) Comments Unknown Sex and Gender Information Value Date Recorded Sex Assigned at Not on file 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 Gender Identity Not on file Sexual Orientation [...] Date/Time Associated Diagnosis Comments URINE MICROALBUMIN Routine 08/18/2015 10 :00 AM CDT SERUM PARATHYROID HORMONE (PTH), INTACT Routine 08/18/2015 10:00 AM CDT PLASMA LIPID PANEL Routine 08/18/2015 5: 00 AM CDT PLASMA BASIC METABOLIC PANEL Routine 08/18/2015 5:00 AM CDT BLOOD HEMOGLOBIN A1C Routine 08/18/2015 5:00 AM CDT DISCHARGE LABORATORY CUMULATIVE REPORT 08/18/2015 documented in this encounter Results * (ABNORMAL) Serum parathyroid hormone (PTH), intact (08/18/2015 10:00 AM CDT) PTH, intact 71(H) 12 - 65 pg/ml HISTORICAL RESULTS Comment: In the presence of normal renal function and hypercalcemia, a PTH level of >65 pg/ml is highly suggestive of primary hyperparathyroidism. Serum 08/18/2015 10:0 0 AM CDT Historical Provider MD LAB BLOOD ORDERABLES Bárbara l Result Performing Organization Address [facility] [place] de Phone Number HISTORICAL RESULTS * Urine microalbumin (08/18/2015 10:00 AM CDT) Creatinine, ur 83 20 - [phone] HISTORICAL RESULTS Microalbumin 8.0 0.0 - 29.9 mcg/ml HISTORICAL RESULTS Microalbumin/crea t ratio 10 0 - 30 mcg/mg Cr HISTORICAL RESULTS Comment: Microalbumin/Creatinine Ratio Reference Ranges: Normal: ? < 30 mcg/mg Microalbuminuria: ? 30 - 300 mcg/mg Clinical Albuminuria: ??300 mcg/mg Urine 08/18/2015 10:0 0 AM CDT Historical Provider MD LAB BLOOD ORDERABLES Bárbara l Result Performing Organization Address [facility] [place] de Phone Number HISTORICAL RESULTS * Plasma basic metabolic panel (08/18/2015 5:00 AM CDT) Sodium 141 135 - 145 mmol/L HISTORICAL RESULTS K, pl 3.6 3.5 - 5.1 mmol/L HISTORICAL RESULTS Chloride 106 100 - 114 mmol/L HISTORICAL RESULTS CO2 28 22 - 32 mmol/L HISTORICAL RESULTS BUN 23 10 - 26 mg/dl HISTORICAL RESULTS Glucose 160 70 - 199 mg/dl HISTORICAL RESULTS A. gap 11 8 - 16 mmol/L HISTORICAL RESULTS Creatinine 0.86 0.60 - 1.30 mg/dl HISTORICAL RESULTS Calcium 10.4 8.4 - 10.5 mg/dl HISTORICAL RESULTS eGFR 64 90 - 200 ml/min/1.7 3 m2 HISTORICAL RESULTS Comment: If this individual is -Hungarian, multiply result by 1.21 Repeated results of less than 60 is indicative of chronic kidney disease. MDRD formula has not been validated on individuals greater than 70 years old. Plasma 08/18/2015 5:00 AM CDT Narrative HISTORICAL RESULTS - 08/18/2015 6:29 AM CDT Test performed at [address], [facility]. Historical Provider LAB BLOOD ORDERABLES Bárbara mcdaniel Result Performing Organization Address [facility] Co de Phone Number HISTORICAL RESULTS * (ABNORMAL) Plasma lipid panel (08/18/2015 5:00 AM CDT) Pathologist [facility] Cholesterol 112 100 - 200 mg/dl HISTORICAL RESULTS Triglycerides 175(H) 10 - 150 mg/dl HISTORICAL RESULTS HDL 27(L) 40 - 59 mg/dl HISTORICAL RESULTS LDL 50(L) 60 - 129 mg/dl HISTORICAL RESULTS Plasma 08/18/2015 5:00 AM CDT Narrative HISTORICAL RESULTS - 08/18/2015 6:29 AM CDT Test performed at [address], [facility]. Historical Provider LAB BLOOD ORDERABLES Bárbara l Result Performing Organization Address [facility] [place] de Phone Number HISTORICAL RESULTS * (ABNORMAL) Blood hemoglobin A1C (08/18/2015 5:00 AM CDT) Hgb A1C 7.8(H) 4.0 - 6.0 % HISTORICAL RESULTS Comment: Hemoglobin A1c ADA Interpretive Guidelines: ?<7% ?? Glycemia controlled ?>8% ?? Hyperglycemia, additional action recommended ?Jerilyn Immunochemical Method Blood specimen (specimen) 08/18/2015 5:00 AM CDT Narrative HISTORICAL RESULTS - 08/18/2015 6:15 AM CDT Test performed at [facility], [address] [place] [address], [facility], [facility]. Historical Provider LAB BLOOD ORDERABLES Bárbara l Result HISTORICAL RESULTS * DISCHARGE LABORATORY CUMULATIVE REPORT (08/18/2015) Narrative 08/18/2015 Ordered by an unspecified provider. Historical Provider LAB BLOOD ORDERABLES Bárbara l Result documented in this encounter Visit Diagnoses Diagnosis Type 2 diabetes mellitus without complications (CMS/HCC) (HCC) Hyperparathyroidism (HCC) Hyperparathyroidism, unspecified documented in this encounter Care Teams Manager Sales Relationship Specialty Start Date End Date Jarrell Garrison MD PCP - General 01/25/11 09/25/15 documented as of this encounter
--- OUTSIDE RECORDS SUMMARY | 2024-05-26 13:03 | XMS_ITS | Encounter Summary ---
Author Organization [facility] Healthcare Address [address] [place] [address] Care Team Providers Care Tongue And Quarter Stitcher Name Role Phone Jarrell Garrison MD Primary Care Provider +1 [phone] Encounter Details Date Type Department Care Team (Latest Contact Info) Description 04/19/2014 10:34 AM RN CONCURRENT REVIEW - 04/19/2014 11:59 PM [facility] Hospital Encounter [place] [address] [address] Type 2 or unspecified type diabetes mellitus with peripheral circulatory disorders, uncontrolled; Pure hypercholesterolemia Social History Tobacco Use Types Packs/Day Years Used Date Smoking Tobacco: Never Alcohol Use Standard Drinks/Week Comments No 0 (1 standard drink = 0.6 oz pur e alcohol) Comments Unknown Sex and Gender Information Value Date Recorded Sex Assigned at Not on file Legal Sex Female 6:56 PM RN CONCURRENT REVIEW Gender Identity Not on file Sexual Orientation [...] diabetes mellitus with peripheral circulatory disorders, uncontrolled Pure hypercholesterolemia documented in this encounter Care Teams Tongue And Quarter Stitcher Relationship Specialty Start Date End Date Jarrell Garrison MD PCP - General 01/25/11 09/25/15 documented as of this encounter
--- OUTSIDE RECORDS SUMMARY | 2024-05-26 13:03 | XMS_ITS | Encounter Summary ---
Author Organization [facility] Healthcare Address [address] [place] [address] Care Team Providers Care Operations Support Manager Name Role Phone Jarrell Garrison MD Primary Care Provider +1 -[phone] Encounter Details Date Type Department Care Team (Late st Contact Info) Description 06/08/2013 2:21 PM INFORMATION TECHNOLOGY INTERN - 06/08/2013 11:59 PM INFORMATION TECHNOLOGY INTERN Hospital Encounter [facility] CLINCONV Yuliya Ibarra MD [address] [place] [address] Hypercalcemia Social History Tobacco Use Types Packs/Day Years Used Date Smoking Tobacco: Never Alcohol Use Standard Drinks/Week Comments No 0 (1 standard drink = 0.6 oz pur e alcohol) Comments Unknown Sex and Gender Information Value Date Recorded Sex Assigned at Not on file Legal Sex Female 6:56 PM INFORMATION TECHNOLOGY INTERN Gender Identity Not on file Sexual Orientation [...] Diagnosis Comments PLASMA BASIC METABOLIC PANEL Routine 06/08/2013 8:35 AM INFORMATION TECHNOLOGY INTERN DISCHARGE LABORATORY CUMULATIVE REPORT 06/08/2013 documented in this encounter Results * (ABNORMAL) Plasma basic metabolic panel (06/08/2013 8:35 AM INFORMATION TECHNOLOGY INTERN) [facility] Sodium 140 135 - 145 mmol/L HISTORICAL RESULTS K, pl 3.4(L) 3.5 - 5.1 mmol/L HISTORICAL RESULTS Chloride 105 100 - 114 mmol/L HISTORICAL RESULTS CO2 29 22 - 32 mmol/L HISTORICAL RESULTS BUN 18 10 - 26 mg/dl HISTORICAL RESULTS Glucose 212(H) 70 - 199 mg/dl HISTORICAL RESULTS A. gap 9 8 - 16 mmol/L HISTORICAL RESULTS Creatinine 0.77 0.60 - 1.30 mg/dl HISTORICAL RESULTS Calcium 9.7 8.4 - 10.5 mg/dl HISTORICAL RESULTS eGFR 73 90 - 200 ml/min/1.7 3 m2 HISTORICAL RESULTS Comment: If this individual is -Beninese, multiply result by 1.21 Repeated results of less than 60 is indicative of chronic kidney disease. MDRD formula has not been validated on individuals greater than 70 years old. Plasma 06/08/2013 8:35 AM INFORMATION TECHNOLOGY INTERN Narrative HISTORICAL RESULTS - 06/08/2013 9:35 AM INFORMATION TECHNOLOGY INTERN Test performed at [facility], [address] [place] [address], [facility], [id number]. [place] Historical Provider LAB BLOOD ORDERABLES Bárbara l Result HISTORICAL RESULTS * DISCHARGE LABORATORY CUMULATIVE REPORT (06/08/2013) Narrative 06/08/2013 Ordered by an unspecified provider. Historical Provider LAB BLOOD ORDERABLES Bárbara l Result documented in this encounter Visit Diagnoses Diagnosis Hypercalcemia documented in this encounter Care Teams Operations Support Manager Relationship Specialty Start Date End Date Jarrell Garrison MD PCP - General 01/25/11 09/25/15 documented as of this encounter
--- OUTSIDE RECORDS SUMMARY | 2024-05-26 13:03 | XMS_ITS | Encounter Summary ---
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
--- OUTSIDE RECORDS SUMMARY | 2024-05-26 13:03 | XMS_ITS | Encounter Summary ---
Author Organization [facility] Healthcare Address [address] [place] [address] Care Team Providers Care Strategic Accounts Manager Name Role Phone Jarrell Garrison MD Primary Care Provider +1 -[phone] Encounter Details Date Type Department Care Team (Late st Contact Info) Description 02/17/2013 11:53 AM CDT - 02/17/2013 11:59 PM CDT Hospital Encounter CH CLINCONV Sohpia, Kaylynn Harmon MD [address] [id number] Hypopotassemia Social History Tobacco Use Types Packs/Day Years Used Date Smoking Tobacco: Never Assessed Comments Unknown Sex and Gender Information Value Date Recorded Sex Assigned at Not on file 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
--- OUTSIDE RECORDS SUMMARY | 2024-05-26 13:03 | XMS_ITS | Encounter Summary ---
Author Organization [facility] Healthcare Address [address] [place] [address] Care Team Providers Care Jewelsmith Name Role Phone Jarrell Garrison MD Primary Care Provider [phone] -[phone] Encounter Details Date Type Department Care Team (Late st Contact Info) Description 04/15/2012 9:43 AM SUSTAINMENT LOGISTICS ANALYST - 04/15/2012 11:59 PM SUSTAINMENT LOGISTICS ANALYST Hospital Encounter [facility] Nontoxic uninodular goiter Social History Tobacco Use Types Packs/Day Years Used Date Smoking Tobacco: Never Assessed Comments Unknown Sex and Gender Information Value Date Recorded Sex Assigned at Not on file Legal Sex Female 6:56 PM SUSTAINMENT LOGISTICS ANALYST Gender Identity Not on file Sexual [...] as of this encounter Visit Diagnoses Diagnosis Nontoxic uninodular goiter documented in this encounter Care Teams Jewelsmith Relationship Specialty Start Date End Date Jarrell Garrison MD PCP - General 01/25/11 09/25/15 documented as of this encounter
--- OUTSIDE RECORDS SUMMARY | 2024-05-26 13:03 | XMS_ITS | Encounter Summary ---
Author Organization [facility] Healthcare Address [address] [place] [address] Care Team Providers Care Commissioner Public Works Name Role Phone Jarrell Garrison MD Primary Care Provider +1 -[phone] Encounter Details Date Type Department Care Team (Late st Contact Info) Description 08/30/2015 12:47 PM CDT - 08/30/2015 11:59 PM CDT Hospital Encounter [place] [address] [address] Nail dystrophy; Localized edema Social History Tobacco Use Types Packs/Day Years Used Date Smoking Tobacco: Never Alcohol Use Standard Drinks/Week Comments No 0 (1 standard drink = 0.6 oz pur e alcohol) Comments Unknown Sex and Gender Information Value Date Recorded Sex Assigned at Not on file Legal Sex Female 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
--- OUTSIDE RECORDS SUMMARY | 2024-05-26 13:03 | XMS_ITS | Encounter Summary ---
Author Organization [facility] Healthcare Address [address] [place] [address] Care Team Providers Care Lieutenant Firefighter Name Role Phone Jarrell Garrison MD Primary Care Provider +1 -[phone] Encounter Details Date Type Department Care Team (Late st Contact Info) Description 10/22/2013 8:23 AM CDT - 10/22/2013 11:59 PM CDT Hospital Encounter [place] [address] [id number] [place] [address] [address] [id number] Obstructive sleep apnea Social History Tobacco Use Types Packs/Day Years Used Date Smoking Tobacco: Never Alcohol Use Standard Drinks/Week Comments No 0 (1 standard drink = 0.6 oz pur e alcohol) Comments Unknown Sex and Gender Information Value Date Recorded Sex Assigned at Not on file 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
--- OUTSIDE RECORDS SUMMARY | 2024-05-26 13:03 | XMS_ITS | Encounter Summary ---
Author Organization [facility] Healthcare Address [address] [place] [address] Care Team Providers Care Steep Tender Name Role Phone Jarrell Garrison MD Primary Care Provider +1 -[phone] Encounter Details Date Type Department Care Team (Late st Contact Info) Description 12/12/2014 7:53 PM CDT - 12/12/2014 11:40 PM CDT Hospital Encounter [facility] Jerzy Azevedo MD [address] [place] [id number] Food poisoning; Essential hypertension; Type 2 or unspecified type diabetes mellitus; Personal history of transient ischemic attack (TIA) and cerebral infarction without residual deficit Social History Tobacco Use Types Packs/Day Years Used Date Smoking Tobacco: Never Alcohol Use Standard Drinks/Week Comments No 0 (1 standard drink = 0.6 oz pur e alcohol) Comments Unknown Sex and Gender Information Value Date Recorded Sex Assigned at Not on file Legal Sex Female 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 Gender Identity Not on file Sexual Orientation [...] Procedure Name Priority Date/Time Associated Diagnosis Comments SERUM LIPASE Routine 12/12/2014 9:25 PM CDT SERUM ESTIMATED GLOMERULAR FILTRATION RATE Routine 12/12/2014 9:25 PM CDT SERUM AMYLASE Routine 12/12/2014 9:25 PM CDT PLASMA COMPREHENSIVE METABOLIC PANEL Routine 12/12/2014 9:25 PM CDT BLOOD CELL COUNT (CBC), MORPHOLOGIC EXAM Routine 12/12/2014 9:25 PM CDT BLOOD CELL MORPHOLOGIC EXAM Routine 12/12/2014 9:25 PM CDT URINALYSIS Routine 12/12/2014 9:00 PM CDT DISCHARGE LABORATORY CUMULATIVE REPORT 12/12/2014 documented in this encounter Results * (ABNORMAL) Plasma comprehensive metabolic panel (12/12/2014 9:25 PM CDT) Sodium 146(H) 135 - 145 mmol/L HISTORICAL RESULTS K, pl 3.9 3.5 - 5.1 mmol/L HISTORICAL RESULTS Chloride 109 97 - 110 mmol/L HISTORICAL RESULTS CO2 25 22 - 32 mmol/L HISTORICAL RESULTS A. gap 16 8 - 16 mmol/L HISTORICAL RESULTS Glucose 176 70 - 199 mg/dl HISTORICAL RESULTS Comment: Interpretive Data Note:The glucose [...] data was last revised on 2014. BUN 20.1 8.0 - 25.0 mg/dl HISTORICAL RESULTS Creatinine 0.85 0.60 - 1.10 mg/dl HISTORICAL RESULTS BUN/creat ratio 24(H) 10 - 20 HIST ORICAL RESULTS Calcium 10.1 8.6 - 10.2 mg/dl HISTORICAL RESULTS Protein, sr 6.4 6.0 - 8.4 g/dl HISTORICAL RESULTS Alb 4.1 3.6 - 5.0 g/dl HISTORICAL RESULTS Alb/glob ratio 1.8 1.1 - 1.8 ratio HISTORICAL RESULTS Alk phos 76 40 - 130 Units/L HISTORICAL RESULTS ALT 31 5 - 45 Units/L HISTORICAL RESULTS AST 22 10 - 40 Units/L HISTORICAL RESULTS Bilirubin 0.3 <=1.2 mg/dl HISTORICAL RESULTS Plasma 12/12/2014 9:25 PM CDT us Historical Provider LAB BLOOD ORDERABLES Bárbara l Result HISTORICAL RESULTS * Serum lipase (12/12/2014 9:25 PM CDT) Lip 38 10 - 70 Units/L HISTORICAL RESULTS Serum 12/12/2014 9:25 PM CDT us Historical Provider LAB BLOOD ORDERABLES Bárbara l Result HISTORICAL RESULTS * Serum amylase (12/12/2014 9:25 PM CDT) Pathologist [facility] [address], [address] 53 30 - 100 Units/L HISTORICAL RESULTS Serum 12/12/2014 9:25 PM CDT Result [facility] Historical Provider LAB BLOOD ORDERABLES Bárbara l Result Performing Organization Address [facility] Co de Phone Number HISTORICAL RESULTS * (ABNORMAL) Blood cell morphologic exam (12/12/2014 9:25 PM CDT) Pathologist [facility] Neutrophils 82.0(H) 44.0 - 80.0 % HISTORICAL RESULTS Immature granulocytes 0.4 0.0 - 1.0 % HISTORICAL RESULTS Lymphocytes 6.1(L) 13.0 - 44.0 % HISTORICAL RESULTS Monos 10.4 2.0 - 11.0 % HISTORICAL RESULTS Eosinophils 0.9 0.0 - 6.0 % HISTORICAL RESULTS Basophils 0.2 0.0 - 3.0 % HISTORICAL RESULTS Neutrophils, abs 11.4(H) 1.6 - 7.0 K/cumm HISTORICAL RESULTS Immature granulocyte, abs 0.0(H) 0.0 - 0.0 K/cumm HISTORICAL RESULTS Lymphocytes, abs 0.8 0.5 - 4.3 K/cumm HISTORICAL RESULTS Monocytes, absolute 1.4(H) 0.1 - 1.0 K/cumm HISTORICAL RESULTS Eosinophils, abs 0.1 0.0 - 0.6 K/cumm HISTORICAL RESULTS Basophils, abs 0.0 0.0 - 0.3 K/cumm HISTORICAL RESULTS Blood specimen (specimen) 12/12/2014 9:25 PM CDT Result [facility] Historical Provider LAB BLOOD ORDERABLES Bárbara l Result HISTORICAL RESULTS * (ABNORMAL) Blood cell count (CBC), morphologic exam (12/12/2014 9:25 PM CDT) Pathologist [facility] WBC 13.9(H) 3.8 - 9.8 K/cumm HISTORICAL RESULTS RBC 4.93 3.90 - 5.00 M/cumm HISTORICAL RESULTS Hgb 14.4 12.1 - 15.1 g/dl HISTORICAL RESULTS Hct 44.5(H) 36.1 - 44.3 % HISTORICAL RESULTS MCV 90.3 80.0 - 100.0 fl HISTORICAL RESULTS MCH 29.2 26.7 - 33.7 pg HISTORICAL RESULTS MCHC 32.4(L) 32.7 - 36.0 g/dl HISTORICAL RESULTS Rdw 13.6 11.5 - 14.6 % HISTORICAL RESULTS Platelets 282 140 - 440 K/cumm HISTORICAL RESULTS MPV 10.5 8.0 - 12.0 fl HISTORICAL RESULTS NRBC 0.0 0.0 - 0.0 % HISTORIC AL RESULTS NRBC, abs 0.00 0.00 - 0.00 K/cumm HISTORICAL RESULTS Blood specimen (specimen) 12/12/2014 9:25 PM CDT us Historical Provider LAB BLOOD ORDERABLES Bárbara mcdaniel Result HISTORICAL RESULTS * Serum estimated glomerular filtration rate (12/12/2014 9:25 PM CDT) eGFR >60 ml/min/1.7 3 m2 HISTORICAL RESULTS Comment: Interpretation of Estimated GFR (eGFR): Normal ?>/= 60 mL/min/1.73m2 Possible Chronic Kidney Disease ??15 - 59 mL/min/1.73m2 Possible Kidney Failure ?< 15 ??mL/min/1.73m2 If -Finnish multiply value by 1.16. ??Estimated glomerular filtration rate is determined by the CKD-EPI equation recommended by the National Kidney Foundation (KDIGO 2012 Clinical Practice Guideline for the Evaluation and Management of Chronic Kidney Disease. ??Kidney Intnl Suppl May 2012;3:1). ??The CKD-EPI equation should not be used in acute renal failure or acute kidney injury and is not valid in children. Serum 12/12/2014 9:25 PM CDT Historical Provider LAB BLOOD ORDERABLES Bárbara l Result HISTORICAL RESULTS * Urinalysis (12/12/2014 9:00 PM CDT) Color, ur Yellow Yellow HISTORICAL RESULTS Clarity, ur Clear Clear HISTORIC AL RESULTS Specific gravity, ur 1.023 1.003 - 1.030 HISTORICAL RESULTS Comment:Normal Ranges: 1.003 -1.030 pH, ur 5.0 4.5 - 8.0 HISTORICAL RESULTS Comment:Normal ranges: 4.5-8 .0 Protein, ur, quant Negative Negative mg/dl HISTORICAL RESULTS Glucose, ur, quant Negative Negative mg/dl HISTORICAL RESULTS Ketones, ur Negative Negative HISTORIC AL RESULTS Bilirubin, ur Negative Negative HISTOR ICAL RESULTS U Blood Negative Negative HISTORICAL RESULTS Urobilinogen, quant, ur 1.0 0.2 - 1.0 Dalia Units/dl HISTORICAL RESULTS Comment:Normal Ranges: 0.2-1 .0 EU/dL Nitrites, ur Negative Negative HISTORI MCKENNA RESULTS Leukocyte esterase, ur Negative Negative HISTORICAL RESULTS Urine 12/12/2014 9:00 PM CDT Historical Provider LAB BLOOD ORDERABLES Bárbara l Result HISTORICAL RESULTS * DISCHARGE LABORATORY CUMULATIVE REPORT (12/12/2014) Narrative 12/12/2014 Ordered by an unspecified provider. Historical Provider LAB BLOOD ORDERABLES Bárbara l Result documented in this encounter Visit Diagnoses Diagnosis Food poisoning Unspecified food poisoning Essential hypertension Unspecified essential hypertension Type 2 or unspecified type diabetes mellitus Personal history of transient ischemic attack (TIA) and cerebral infarction without residual deficit documented in this encounter Care Teams Steep Tender Relationship Specialty Start Date End Date Jarrell Garrison MD PCP - General 01/25/11 09/25/15 documented as of this encounter
--- OUTSIDE RECORDS SUMMARY | 2024-05-26 13:03 | XMS_ITS | Encounter Summary ---
Author Organization [facility] Healthcare Address [address] [place] [address] Care Team Providers Care Senior Manufacturing Supervisor Name Role Phone Jarrell Garrison MD Primary Care Provider +1 -[phone] Encounter Details Date Type Department Care Team (Late st Contact Info) Description 09/17/2015 9:40 PM CDT - 09/17/2015 10:23 PM CDT Hospital Encounter [facility] Julio Mccabe MD [address] [place] [address] Laceration of right hand without foreign body; Other fall on same level, initial encounter; History of falling; Activity, other specified; Other specified places as the place of occurrence of the external cause Social History Tobacco Use Types Packs/Day Years Used Date Smoking Tobacco: Never Alcohol Use Standard Drinks/Week Comments No 0 (1 standard drink = 0.6 oz pur e alcohol) Comments Unknown Sex and Gender Information Value Date Recorded Sex Assigned at Not on file 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
--- OUTSIDE RECORDS SUMMARY | 2024-05-26 13:03 | XMS_ITS | Encounter Summary ---
Author Organization [facility] Healthcare Address [address] [place] [address] Care Team Providers Care Financial Coordinator Name Role Phone Jarrell Garrison MD Primary Care Provider [phone] Encounter Details Date Type Department Care Team (Late st Contact Info) Description 11/21/2010 12:01 AM CDT - 11/21/2010 11:59 PM CDT Hospital Encounter [place] [address] [facility] [address] [place], [place] [id number] Asthma Social History Tobacco Use Types Packs/Day Years Used Date Smoking Tobacco: Never Assessed Comments Unknown Sex and Gender Information Value Date Recorded Sex Assigned at Not on file Legal Sex Female 6:56 PM ON SITE SERVICES SPECIALIST Gender Identity Not on file Sexual [...] asthma documented in this encounter Care Teams Financial Coordinator Relationship Specialty Start Date End Date Jarrell Garrison MD PCP - General 10/29/07 01/24/11 documented as of this encounter
--- OUTSIDE RECORDS SUMMARY | 2024-05-26 13:03 | XMS_ITS | Encounter Summary ---
Author Organization [facility] Healthcare Address [address] [place] [address] Care Team Providers Care Internist Medical Doctor Md Name Role Phone Jarrell Garrison MD Primary Care Provider [phone] Encounter Details Date Type Department Care Team (Late st Contact Info) Description 07/04/2010 11:47 AM INFANT CHILDCARE PROVIDER - 07/04/2010 11:59 PM INFANT CHILDCARE PROVIDER Hospital Encounter [facility] Social History Tobacco Use Types Packs/Day Years Used Date Smoking Tobacco: Never Assessed Comments Unknown Sex and Gender Information Value Date Recorded Sex Assigned at Not on file Legal Sex Female 6:56 PM INFANT CHILDCARE PROVIDER Gender Identity Not on file Sexual Orientation [...] on filedocumented in this encounter Care Teams Internist Medical Doctor Md Relationship Specialty Start Date End Date Jarrell Garrison MD PCP - General 10/29/07 01/24/11 documented as of this encounter
--- OUTSIDE RECORDS SUMMARY | 2024-05-26 13:03 | XMS_ITS | Encounter Summary ---
Author Organization [facility] Address [address] [place] [address] Care Team Providers Care Surveyor'S Assistant Name Role Phone Jarrell Garrison MD Primary Care Provider [phone] Encounter Details Date Type Department Care Team (Late st Contact Info) Description 02/03/2013 2:45 PM CDT - 02/06/2013 4:34 PM CDT Hospital Encounter [place] [id number] [place], [place] [id number] [place] [id number] [facility] [address] [place], [place] [id number] Asthma with exacerbation; Hypertensive heart disease without congestive heart failure; Hypoxemia; Personal history of transient ischemic attack (TIA) and cerebral infarction without residual deficit; Esophageal reflux; History of other malignant neoplasm of skin; Other and unspecified hyperlipidemia; Encounter for long-term use of antiplatelets/antith rombotics; Encounter for long-term (current) use of other medications; Obstructive sleep apnea; Acute bronchitis; Obesity; Dietary counseling and surveillance; Body mass index 31.0-31.9, adult; Flushing; Dysphonia; Adrenal cortical steroids causing adverse effect in therapeutic use; Antacids and antigastric secretion drugs causing adverse effect in therapeutic use Social History Tobacco Use Types Packs/Day Years Used Date Smoking Tobacco: Never Assessed Comments Unknown Sex and Gender Information Value Date Recorded Sex Assigned at Not on file Legal Sex Female 6:56 PM [employer]WORK[employer] Gender Identity Not on file Sexual Orientation Not on file documented as of this encounter Last Filed Vital Signs Vital Sign Reading Time Taken Comments Blood Pressure 121/60 02/06/2013 1:56 PM CDT Pulse 76 02/06/2013 1:56 PM CDT Temperature - - Respiratory Rate - - Oxygen Saturation - - Inhaled Oxygen Concentration - - Weight 84.4 kg (186 lb 1.1 oz) 02/03/2013 3:37 P M CDT Height 165.1 cm (5' 5 ) 02/03/2013 3:37 PM CDT Body Mass Index 30.96 02/03/2013 3:37 PM CDT documented in this encounter Discharge Summaries * Provider, MD Desiree - 02/06/2013 12:00 AM CDT DISCHARGE SUMMARY Patient: LOC ANDERSON Account: [id number] Room No: 522-02 : 1940 Patient Type: IP Attend.: Kike Yi MD Admit Date: 02/03/2013 Dict.: Yves Finley M.D. Disch. Date: 02/06/2013 Primary Care Physician: Grupo Garcia MD Consultations: Pulmonary, Dr. Russell Moran. The history, physical examination, and review of systems were initially dictated by Dr. Gabby Segura and will not be repeated here. Discharge Diagnoses: 1. Asthma exacerbation. 2. ALLERGIC REACTION TO PREDNISONE AND PROTONIX COMBINATION. 3. Gastroesophageal reflux disease. 4. Hypertension. 5. Diabetes mellitus type 2. 6. Hyperlipidemia. Discharge Medications: 1. Prednisone tapering dose. 2. Amitriptyline 25 mg p.o. nightly at bedtime. 3. Azithromycin 250 mg p.o. daily for 3 more days. 4. Plavix 75 mg p.o. daily. 5. Vitamin B12, 1000 mcg p.o. daily. 6. Nexium 40 mg p.o. daily. 7. Advair 115/21 mcg 2 puffs inhalation every 12 hours. 8. Latanoprost eyedrops ophthalmic at bedtime. 9. Multivitamin 1 tablet p.o. daily. 10. Potassium chloride 20 mEq p.o. daily. 11. Multivitamin 1 tablet p.o. daily. 12. Crestor 10 mg p.o. at bedtime. 13. Triamterene/hydrochlorothiazide 37.5/25 mg 2 tablets p.o. daily. 14. Diovan 80 mg p.o. daily. 15. Albuterol 2 puffs inhalation every 4 hours as needed. Review of Data: 1. Chest x-ray shows no active disease. 2. Hemoglobin A1c is 7.7 and was done on admission. Discharge Physical Examination: Refer to progress note on February 06, 2013. Hospital Course: Ms. Loc Anderson is a 72-year-old female who was admitted by Dr. Gabby Segura on February 03, 2013, for cough and hypoxia. The patient was treated as a case of asthma exacerbation. The patient was ruled out for congestive heart failure. The patient was initially on azithromycin and Rocephin. Pulmonary was consulted. The patient was ruled out for acute coronary syndrome. The patient was on bronchodilator and IV Solu-Medrol during this admission. She was then tapered to prednisone; however, she had a reaction with combination of Protonix and prednisone, which resulted in swelling of her face. This was improved with Benadryl. She complained of intermittent wheezing. Her prednisone was resumed. She was cleared by Pulmonary for discharge today in a stable condition. She was able to maintain oxygenation at 96 during ambulation; hence, no home oxygen was required. She also has DM type 2 with a hemoglobin of 7.7, and this is to be monitored as an outpatient. Activity: Rest today. Increase activity as tolerated. Diet: Low-fat, low-cholesterol diet. Followup Appointment: 1. Follow up with Dr. Grupo Garcia in 1 week. 2. Follow up with Dr Russell Moran in 4 weeks. Disposition: Discharge to home in a stable condition. Total Time Spent: 40 minutes. Johanny Xavier/phyllis TD: 02/08/2013 12:47 CC: Johanny Chavira M.D. Authenticated by Yves Finley MD On 02/08/2013 04:47:55 PM documented in this encounter Medications at Time [...] 03/07/2009 1 documented as of this encounter H&P Notes * Provider, MD Desiree - 02/03/2013 12:00 AM CDT HISTORY AND PHYSICAL Patient: LOC ANDERSON Account: [id number] Room No: [id number] : 1940 Patient Type: IP Attend.: Kike Yi MD Admit Date: 02/03/2013 Dict.: Gabby Segura M.D. Disch. Date: PRIMARY CARE PHYSICIAN Dr. Grupo Garcia. ADMITTING SERVICE [facility] Hospitalist Service. CHIEF COMPLAINT Cough and hypoxia. HISTORY OF PRESENT ILLNESS A 72-year-old female with multiple medical problems. She complained of feeling very bad , cough and fevers that has been going on for the past four days. The patient reports all symptoms started on Friday. She also reports of having severe hoarseness of breath and states that she couldn't talk. The patient reports on Friday, she started to develop midsternal chest pain that felt like indigestion. The chest pain radiated to the back, to the middle of the shoulder blade but denies any left arm or neck pain. She reports that the pain was similar to indigestion pain that she has had in the past. The patient does admit to following with the sdv pilot/navigator/dds operator and states that she does not have chronic chest pain. The patient called her primary care physician and had amoxicillin called in and since then, she reported her symptoms did improve slightly. She reports that she also has had a persistent cough for the past four days. The cough is nonproductive and occasionally results in coughing fits without any ____. The symptoms also associated with fever of 101 on the first day of her symptoms but it broke the next day and has not occurred since. The patient denies any shortness of breath, either on exertion or at rest. She admits that coughing improved with antibiotics but did not resolve. When she went to see her primary care physician on Friday, she was instructed to come to the emergency department because of low oxygen level. She admits that she had three other episodes of pneumonia in the past. She denies any recent hospital or long-term stay. She admits to a history of asthma but denies any history of chronic obstructive pulmonary disease or history of tobacco use. The patient denies being O2 dependent at home, admits that prior to four days ago, she was doing well. 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 She admits that she is still quite active despite this disability. She is able to cook, clean and shower independently. She even drives. REVIEW OF SYSTEMS The patient admits to fevers, now resolved. Denies chills, decreased appetite, decreased activity, denies any change in weight. HEENT: Denies any facial pain, facial swelling, neck pain, neck stiffness. Eyes - complains of dry eyes. CVS: Positive for chest pain, now resolved. Negative for palpitations or lower extremity edema. RESPIRATORY: Denies any dyspnea on exertion or at rest. Positive for a dry cough. Positive for wheezing. Denies any increased work of breathing. ABDOMEN: Denies any nausea, vomiting, abdominal pain or diarrhea. NEUROLOGIC: Denies any change in her weakness in her lower extremities. MUSCULOSKELETAL: Denies any change in her pain. PAST MEDICAL HISTORY Hypertension, gastroesophageal reflux disease, bladder problems. History of lymphedema, history of transient ischemic attacks, history of partial seizures, history of shingles, history of duodenal ulcers, history of pneumonia, history of seizures. History of skin cancer, biopsied on the left leg and right cheek. History of sleep apnea. History of irritable bowel syndrome. PAST SURGICAL HISTORY Gallbladder surgery in October of 1997. History of hysterectomy. Ankle surgery and back surgery. FAMILY HISTORY Dad of congestive heart failure. Mom of breast cancer. SOCIAL HISTORY Denies tobacco use, denies alcohol use, denies IV drug use. 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 She currently lives at home with her . ALLERGIES Aricept, diltiazem and Advair. HOME MEDICATIONS 1. Albuterol two puffs p.r.n. 2. Elavil 25 mg at bedtime. 3. Crestor 10 mg at bedtime. 4. Diovan 80 mg daily. 5. Klor-Con 20 mEq. daily. 6. Multivitamins one tablet daily. 7. Nexium 40 mg daily 8. Plavix 75 mg at bedtime. 9. Triamterene/hydrochlorothiazide 37.5/25 mg daily. 10. Vitamin B12 1000 mcg daily. 11. Xalatan eye drops. VITAL SIGNS Temperature is 98.1, heart rate is 86, respirations are 18, blood pressure was 119/49. Saturation is 94% on two liters of nasal cannula. GENERAL: A well-appearing not in acute distress. HEENT: Normocephalic, atraumatic. Eyes - normal sclera, normal conjunctiva, normal eye movements. CVS: Regular rate and rhythm. CHEST: Bilateral scattered wheezing noted throughout the exam. Decreased air movement, bilateral scattered rhonchi is also appreciated. ABDOMEN: Soft, nontender, nondistended. No palpable organomegaly. EXTREMITIES: No pedal edema. Good distal pulses. No calf tenderness. SKIN: No apparent lesions or rashes or ulcers grossly visible. NEURO: Alert, cranial nerves II-XII are grossly intact. Gait was not examined. LABS Lactic acid 1.6, glucose was 172, WBCs 7.96, hemoglobin 15.0, hematocrit is 43.9, platelets are 273,000. BNP was 27. BMP - sodium is 135, potassium is 3.8, chloride is 101, bicarbonate is 28, BUN is 22, creatinine is 1.02. Calcium was 10.4. Anion gap is 9.8. Hemoglobin A1C is 7.7. Chest x-ray shows no acute disease. ASSESSMENT AND PLAN 1. Hypoxia. The patient has been O2 dependent since admission, initially 98% on three liters, now is 94% on two liters. Admits to prior history of pneumonia. Etiology - cardiac versus pulmonary but most likely more pulmonary than anything else. BNP is 27 which rules out any congestive heart failure exacerbation. The patient did have an echo in October of 2010 which showed an EF of 65%. The patient denies any history of chronic obstructive pulmonary disease but does admit to a history of asthma which she states is pretty well controlled. The patient denies symptoms of dyspnea or dyspnea on exertion. X-ray done on admission showed no active disease or infiltrate, although the patient does think she may have had another bout of pneumonia SIRS is currently 0/4 with normal WBCs and the patient is afebrile. Vital signs have been otherwise stable. On admission, there was a concern for pneumonia and the patient is currently on azithromycin and Rocephin. The patient does have some mild wheezing on exam along with scattered crackles and rhonchi and they could also be an underlying asthma exacerbation. The patient states she follows up with Dr. Moran as an outpatient. Will consult given history of weakness and limited mobility and now hypoxia. Will also get a D-dimer. 2. Cough. Nonproductive for four days. Improved since receiving some antibiotics. Chest x-ray is negative for any acute disease. Will get sputum cultures. Will also get urine antigen for legionella and strep. 3. Chest pain. The patient reports atypical chest pain like symptoms, likely more pulmonary than cardiac. Admits that she has had heart problems but denies any history of stent. No recent stress test noted. Last echo in October of 2010 showed grade 1 diastolic impaired relaxation. The patient denies any stent placement and states that she does followup with a sdv pilot/navigator/dds operator, Dr. Valencia and had a cardiac catheterization done in the past. She is currently noted on Plavix. No beta-tete noted. Will continue current medications. Given her past history of heart problems , will get three serial troponins and get an EKG as well. 4. History of asthma. Current symptoms may represent an exacerbation; however, the patient does state that her asthma is generally well controlled. Will order DuoNeb for now and consult pulmonary to evaluate. 5. Hypertension. Will continue Diovan 80 mg daily. Will also continue triamterene/hydrochlorothiazide 37.5/25 mg daily. 6. Gastroesophageal reflux disease. Will continue Nexium 40 mg daily. 7. Hyperlipidemia. Will continue 10 mg daily. 8. Deep venous thrombosis prophylaxis. Will currently keep the patient on Lovenox. 9. Diabetes type 2. Hemoglobin A1C is 7.7. The patient is not noted to be on any oral hypoglycemics; however, given her age of 72, hemoglobin of 7.7, may be appropriate. Will continue to monitor her on Accu-Cheks q.a.c. and q.h.s. and provide a low dose of correctional insulin as needed. 10. Deep venous thrombosis prophylaxis. 11. FEN. Electrolytes are stable. Will continue on current diet. Gabby Segura M.D. HQ/lo TD: 02/04/2013 09:05 Authenticated by Gabby Segura MD On 02/06/2013 12:10:46 PM documented in this encounter Consult Notes * ProviderDesiree MD - 02/04/2013 12:00 AM CDT CONSULTATION REPORT Patient: LOC ANDERSON Account: [id number] Room No: 522-02 : 1940 Patient Type: IP Attend.: Kike Yi MD Admit Date: 02/03/2013 Consult.: Russell Moran M.D. Disch. Date: Date of Consultation: 02/04/2013 Chief Complaint: Cough and shortness of breath. History of Present Illness: A 72-year-old, female known to our service with a history of stage I asthma was exposed to a grandchild a few days ago who was suffering from a sore throat. Forty-eight hours later the patient had similar symptoms and then developed increasing chest congestion, cough, and shortness of breath. She has been hospitalized at [facility] for a reported room air O2 saturation of 88 percent. Chest x-ray is clear and white blood cell count is normal. The patient has had no description of hemoptysis and minimal secretions expectorated. 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 She reports a history of irritable bowel syndrome and has also been diagnosed with pneumonia in the past. Past Surgical History: Cholecystectomy in 1997, prior hysterectomy, ankle surgery, and back surgeries. Allergies: Aricept, diltiazem, and Advair has induced thrush. Home Medications: 1. Albuterol 2 puffs to be used p.r.n., however, she has only used it once over the past year, and that occurred here recently which provided no change in symptoms. 2. Elavil 25 mg at bedtime. 3. Crestor 10 mg at bedtime. 4. Diovan 80 mg per day. 5. Potassium 20 mEq per day. 6. Multiple vitamin. 7. Nexium 40 mg. 8. Plavix 75 mg per day. 9. Triamterene/hydrochlorothiazide. 10. Vitamin B12. 11. Xalatan eye drops. Family History: Pertinent for congestive failure and breast cancer. Social History: Nonsmoker. No alcohol or illicit drug use. 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 She lives at home with her . Review of Systems: Otherwise unremarkable. As mentioned, chest x-ray is clear. White blood cell count normal. BNP 27. Physical Examination: General: Afebrile, hemodynamically stable. Alert and oriented. HEENT: Unremarkable. Lungs: Bilateral expiratory wheezes. No signs of consolidation. Normal S1, S2. Abdomen: Soft, nontender. Bowel sounds present. Extremities: Free of cyanosis, clubbing, edema and/or palpable cords. Assessments: 1. Asthma with acute exacerbation secondary to viral tracheobronchitis, cannot fully exclude mycoplasma or Chlamydia. 2. History of obstructive sleep apnea. 3. History of gastroesophageal reflux disease. 4. Hypertensive cardiovascular disease. 5. Prior history of shingles. 6. Remote history of duodenal ulcer. 7. Prior history of transient ischemic attack. 8. History of partial seizures, nonrecurrent. 9. History of irritable bowel syndrome. Plan: A single dose intravenous corticosteroid followed by oral systemic steroids for tapering schedule. The patient will be placed on inhaled corticosteroids with long-acting beta agonist, provided by MDI device and spacer to reduce risk of recurrent oral thrush. The patient will also receive 4 additional days of low-dose azithromycin to address the issue of mycoplasma and/or Chlamydia. Likelihood of these pathogens is low and again suspected mostly to be viral in etiology as the precipitating event for her acute bronchospastic process. Spirometry to be performed and followed closely. Russell Moran M.D. WDZ/ct TD: 02/04/2013 18:07 Authenticated by Russell Moran MD On 02/17/2013 08:07:03 PM documented in this encounter Plan of Treatment Not on file documented as of this encounter Procedures Procedure Name Priority Date/Time Associated Diagnosis Comments PLASMA BASIC METABOLIC PANEL Routine 02/06/2013 6:58 AM CDT BLOOD CELL COUNT (CBC), MORPHOLOGIC EXAM Routine 02/06/2013 6:58 AM CDT DISCHARGE LABORATORY CUMULATIVE REPORT 02/06/2013 PLASMA BASIC METABOLIC PANEL Routine 02/05/2013 6:41 AM CDT BLOOD CELL COUNT (CBC), MORPHOLOGIC EXAM Routine 02/05/2013 6:41 AM CDT PLASMA TROPONIN I Routine 02/04/2013 8:1 7 PM CDT PLASMA TROPONIN I Routine 02/04/2013 3:0 5 PM CDT URINE STREPTOCOCCUS PNEUMONIAE AG Routine 02/04/2013 12:10 PM CDT PLASMA TROPONIN I Routine 02/04/2013 9:5 0 AM CDT PLASMA BASIC METABOLIC PANEL Routine 02/04/2013 9:50 AM CDT BLOOD D-DIMER Routine 02/04/2013 9:50 AM CDT BLOOD CELL COUNT (CBC), MORPHOLOGIC EXAM Routine 02/04/2013 9:50 AM CDT ELECTROCARDIOGRAPHY (ECG) 02/04/2013 CHEST RADIOGRAPHY, FRONTAL (AP), LATERAL Routine 02/03/2013 12:19 PM CDT BLOOD GLUCOSE, POC Routine 02/03/2013 9: 12 AM CDT BLOOD LACTIC ACID Routine 02/03/2013 7:3 0 AM CDT PLASMA BASIC METABOLIC PANEL Routine 02/03/2013 6:40 AM CDT BLOOD HEMOGLOBIN A1C Routine 02/03/2013 6:40 AM CDT BLOOD CELL COUNT (CBC), MORPHOLOGIC EXAM Routine 02/03/2013 6:40 AM CDT BLOOD B-TYPE NATRIURETIC PEPTIDE (BNP) Routine 02/03/2013 6:40 AM CDT BLOOD MICROBIOLOGY Routine 02/03/2013 12 :00 AM CDT documented in this encounter Results * (ABNORMAL) Blood cell count (CBC), morphologic exam (02/06/2013 6:58 AM CDT) WBC 11.9(H) 5.0 - 10.0 K/cumm HISTORICAL RESULTS RBC 4.22 4.20 - 5.20 M/cumm HISTORICAL RESULTS Hgb 12.7 12.0 - 15.0 g/dl HISTORICAL RESULTS Hct 37.6 37.0 - 47.0 % HISTORICAL RESULTS MCV 89.1 82.0 - 96.0 fl HISTORICAL RESULTS MCH 30.1 27.0 - 32.0 pg HISTORICAL RESULTS MCHC 33.8 29.0 - 35.0 g/dl HISTORICAL RESULTS Platelets 303 150 - 450 K/cumm HISTORICAL RESULTS RDW 42.1 36.4 - 46.3 fl HISTORICAL RESULTS Rdw 13.2 11.5 - 14.5 % HISTORICAL RESULTS MPV 10.9 8.6 - 12.6 fl HISTORICAL RESULTS Neutrophils 79.5 42.0 - 85.0 % HISTORICAL RESULTS Neutrophils, abs 9.5(H) 2.1 - 8.5 K/cumm HISTORICAL RESULTS Lymphocytes 12.0(L) 16.0 - 52.0 % HISTORICAL RESULTS Lymphocytes, abs 1.4 0.8 - 5.2 K/cumm HISTORICAL RESULTS Monos 7.8 1.0 - 13.0 % HISTORICAL RESULTS Monocytes, absolute 0.9 0.0 - 1.3 K/cumm HISTORICAL RESULTS Eosinophils 0.1 0.0 - 7.0 % HISTORICAL RESULTS Eosinophils, abs 0.0 0.0 - 0.7 K/cumm HISTORICAL RESULTS Basophils 0.1 0.0 - 4.0 % HISTORICAL RESULTS Basophils, abs 0.0 0.0 - 0.4 K/cumm HISTORICAL RESULTS Young granulocytes, % 0.5 0.0 - 1.0 % HISTORICAL RESULTS Young granulocyte 0.06 0.00 - 0.10 K/cumm HISTORICAL RESULTS NRBC 0.0 0.0 - 0.2 #/100 WBC HISTORICAL RESULTS NRBC, abs 0.00 0.00 - 0.01 K/cumm HISTORICAL RESULTS Blood specimen (specimen) 02/06/2013 6:58 AM CDT us Gabby Segura MD LAB BLOOD ORDERABLES Final Re sult HISTORICAL RESULTS * (ABNORMAL) Plasma basic metabolic panel (02/06/2013 6:58 AM CDT) BUN 20 8 - 24 mg/dl HISTORICAL RESULTS Glucose 225(H) 70 - 99 mg/dl HISTORICAL RESULTS Sodium 138 135 - 145 mmol/L HISTORICAL RESULTS K, pl 3.7 3.5 - 5.1 mmol/L HISTORICAL RESULTS Chloride 107 100 - 114 mmol/L HISTORICAL RESULTS CO2 25 22 - 32 mmol/L HISTORICAL RESULTS Creatinine 0.82 0.6 - 1.3 mg/dl HISTORICAL RESULTS Calcium 10.1 8.4 - 10.5 mg/dl HISTORICAL RESULTS A. gap 10 8 - 16 mmol/L HISTORICAL RESULTS eGFR 68 90 - 200 ml/min/1.7 3 m2 HISTORICAL RESULTS Comment: If this individual is -Citizen Of [place], multiply result by 1.21 Repeated results of less than 60 is indicative of chronic kidney disease. MDRD formula has not been validated on individuals greater than 70 years old. Plasma 02/06/2013 6:58 AM CDT Gabby Segura MD LAB BLOOD ORDERABLES Final Re sult HISTORICAL RESULTS * DISCHARGE LABORATORY CUMULATIVE REPORT (02/06/2013) Narrative 02/06/2013 Ordered by an unspecified provider. Historical Provider LAB BLOOD ORDERABLES Bárbara l Result * (ABNORMAL) Blood cell count (CBC), morphologic exam (02/05/2013 6:41 AM CDT) WBC 10.8(H) 5.0 - 10.0 K/cumm HISTORICAL RESULTS RBC 4.44 4.20 - 5.20 M/cumm HISTORICAL RESULTS Hgb 13.3 12.0 - 15.0 g/dl HISTORICAL RESULTS Hct 39.3 37.0 - 47.0 % HISTORICAL RESULTS MCV 88.5 82.0 - 96.0 fl HISTORICAL RESULTS MCH 30.0 27.0 - 32.0 pg HISTORICAL RESULTS MCHC 33.8 29.0 - 35.0 g/dl HISTORICAL RESULTS Platelets 288 150 - 450 K/cumm HISTORICAL RESULTS RDW 42.2 36.4 - 46.3 fl HISTORICAL RESULTS Rdw 13.2 11.5 - 14.5 % HISTORICAL RESULTS MPV 10.7 8.6 - 12.6 fl HISTORICAL RESULTS Neutrophils 85.9(H) 42.0 - 85.0 % HISTORICAL RESULTS Neutrophils, abs 9.2(H) 2.1 - 8.5 K/cumm HISTORICAL RESULTS Lymphocytes 9.1(L) 16.0 - 52.0 % HISTORICAL RESULTS Lymphocytes, abs 1.0 0.8 - 5.2 K/cumm HISTORICAL RESULTS Monos 4.4 1.0 - 13.0 % HISTORICAL RESULTS Monocytes, absolute 0.5 0.0 - 1.3 K/cumm HISTORICAL RESULTS Eosinophils 0.0 0.0 - 7.0 % HISTORICAL RESULTS Eosinophils, abs 0.0 0.0 - 0.7 K/cumm HISTORICAL RESULTS Basophils 0.1 0.0 - 4.0 % HISTORICAL RESULTS Basophils, abs 0.0 0.0 - 0.4 K/cumm HISTORICAL RESULTS Young granulocytes, % 0.5 0.0 - 1.0 % HISTORICAL RESULTS Young granulocyte 0.05 0.00 - 0.10 K/cumm HISTORICAL RESULTS NRBC 0.0 0.0 - 0.2 #/100 WBC HISTORICAL RESULTS NRBC, abs 0.00 0.00 - 0.01 K/cumm HISTORICAL RESULTS Blood specimen (specimen) 02/05/2013 6:41 AM CDT Gabby Segura MD LAB BLOOD ORDERABLES Final Re sult HISTORICAL RESULTS * (ABNORMAL) Plasma basic metabolic panel (02/05/2013 6:41 AM CDT) BUN 15 8 - 24 mg/dl HISTORICAL RESULTS Glucose 268(H) 70 - 99 mg/dl HISTORICAL RESULTS Sodium 138 135 - 145 mmol/L HISTORICAL RESULTS K, pl 4.1 3.5 - 5.1 mmol/L HISTORICAL RESULTS Chloride 106 100 - 114 mmol/L HISTORICAL RESULTS CO2 25 22 - 32 mmol/L HISTORICAL RESULTS Creatinine 0.75 0.6 - 1.3 mg/dl HISTORICAL RESULTS Calcium 10.2 8.4 - 10.5 mg/dl HISTORICAL RESULTS A. gap 11 8 - 16 mmol/L HISTORICAL RESULTS Plasma 02/05/2013 6:41 AM CDT Gabby Segura MD LAB BLOOD ORDERABLES Final Re sult Performing Organization Address [facility] de Phone Number HISTORICAL RESULTS * Plasma troponin I (02/04/2013 8:17 PM CDT) Pathologist [facility] Troponin I 0.01 0.00 - 0.14 ng/ml HISTORICAL RESULTS Comment: Troponin Reference Ranges: Normal: ?0.00 - 0.14 ng/mL Indeterminate: ?0.15 - 0.50 ng/mL [place] / Cardiac Muscle Damage: ?>0.50 ng/mL Plasma 02/04/2013 8:17 PM CDT Gabby Segura MD LAB BLOOD ORDERABLES Final Re sult Performing Organization Address [facility] de Phone Number HISTORICAL RESULTS * Plasma troponin I (02/04/2013 3:05 PM CDT) Pathologist [facility] Troponin I <0.01 0.00 - 0.14 ng/ml HISTORICAL RESULTS Comment: Troponin Reference Ranges: Normal: ?0.00 - 0.14 ng/mL Indeterminate: ?0.15 - 0.50 ng/mL [place] / Cardiac Muscle Damage: ?>0.50 ng/mL Plasma 02/04/2013 3:05 PM CDT us Gabby Segura MD LAB BLOOD ORDERABLES Final Re sult Performing Organization Address [facility] de Phone Number HISTORICAL RESULTS * Urine Streptococcus pneumoniae ag (02/04/2013 12:10 PM CDT) Pathologist [facility] Strep pneumoniae ag, sr Negative Negative HISTORICAL RESULTS Comment: Presumptive negative for pneumococcal pneumonia, suggesting no current or recent infection. ??Infection due to S. pneumoniae cannot be ruled out since the antigen present in the sample may be below detection limit of the test. Urine 02/04/2013 12:1 0 PM CDT Narrative HISTORICAL RESULTS - 02/06/2013 12:35 PM CDT Test performed at [facility], [address] [place] [address], [facility], [facility]. Kike Yi MD LAB BLOOD ROWAN QUIROZ Final Result HISTORICAL RESULTS * Blood cell count (CBC), morphologic exam (02/04/2013 9:50 AM CDT) WBC 5.8 5.0 - 10.0 K/cumm HISTORICAL RESULTS RBC 4.32 4.20 - 5.20 M/cumm HISTORICAL RESULTS Hgb 12.9 12.0 - 15.0 g/dl HISTORICAL RESULTS Hct 38.8 37.0 - 47.0 % HISTORICAL RESULTS MCV 89.8 82.0 - 96.0 fl HISTORICAL RESULTS MCH 29.9 27.0 - 32.0 pg HISTORICAL RESULTS MCHC 33.2 29.0 - 35.0 g/dl HISTORICAL RESULTS Platelets 243 150 - 450 K/cumm HISTORICAL RESULTS RDW 44.3 36.4 - 46.3 fl HISTORICAL RESULTS Rdw 13.5 11.5 - 14.5 % HISTORICAL RESULTS MPV 10.5 8.6 - 12.6 fl HISTORICAL RESULTS Neutrophils 60.7 42.0 - 85.0 % HISTORICAL RESULTS Neutrophils, abs 3.5 2.1 - 8.5 K/cumm HISTORICAL RESULTS Lymphocytes 23.3 16.0 - 52.0 % HISTORICAL RESULTS Lymphocytes, abs 1.4 0.8 - 5.2 K/cumm HISTORICAL RESULTS Monos 12.3 1.0 - 13.0 % HISTORICAL RESULTS Monocytes, absolute 0.7 0.0 - 1.3 K/cumm HISTORICAL RESULTS Eosinophils 2.7 0.0 - 7.0 % HISTORICAL RESULTS Eosinophils, abs 0.2 0.0 - 0.7 K/cumm HISTORICAL RESULTS Basophils 0.3 0.0 - 4.0 % HISTORICAL RESULTS Basophils, abs 0.0 0.0 - 0.4 K/cumm HISTORICAL RESULTS Young granulocytes, % 0.7 0.0 - 1.0 % HISTORICAL RESULTS Young granulocyte 0.04 0.00 - 0.10 K/cumm HISTORICAL RESULTS NRBC 0.0 0.0 - 0.2 #/100 WBC HISTORICAL RESULTS NRBC, abs 0.00 0.00 - 0.01 K/cumm HISTORICAL RESULTS Blood specimen (specimen) 02/04/2013 9:50 AM CDT Gabby Segura MD LAB BLOOD ORDERABLES Final Re sult Performing Organization Address [facility] Co de Phone Number HISTORICAL RESULTS * Blood D-dimer (02/04/2013 9:50 AM CDT) D-dimer 0.2 0.0 - 0.5 mcg/ml FEU HISTORICAL RESULTS Comment: The D-Dimer result should not be used as the sole indicator to rule in or exclude a diagnosis of Pulmonary Embolism or Deep Vein Thrombosis. Blood specimen (specimen) 02/04/2013 9:50 AM CDT Gabby Segura MD LAB BLOOD ORDERABLES Final Re sult Performing Organization Address [facility] Co de Phone Number HISTORICAL RESULTS * Plasma troponin I (02/04/2013 9:50 AM CDT) Troponin I 0.01 0.00 - 0.14 ng/ml HISTORICAL RESULTS Comment: Troponin Reference Rangds: Normal: ?0.00 - 0.14 ng/mL Indeterminate: ?0.15 - 0.50 ng/mL [place] / Cardiac Muscle Damage: ?>0.50 ng/mL Plasma 02/04/2013 9:50 AM CDT Gabby Segura MD LAB BLOOD ORDERABLES Final Re sult Performing Organization Address [facility] Co de Phone Number HISTORICAL RESULTS * (ABNORMAL) Plasma basic metabolic panel (02/04/2013 9:50 AM CDT) BUN 14 8 - 24 mg/dl HISTORICAL RESULTS Glucose 251(H) 70 - 99 mg/dl HISTORICAL RESULTS Sodium 136 135 - 145 mmol/L HISTORICAL RESULTS K, pl 3.3(L) 3.5 - 5.1 mmol/L HISTORICAL RESULTS Chloride 106 100 - 114 mmol/L HISTORICAL RESULTS CO2 23 22 - 32 mmol/L HISTORICAL RESULTS Creatinine 0.93 0.6 - 1.3 mg/dl HISTORICAL RESULTS Calcium 9.5 8.4 - 10.5 mg/dl HISTORICAL RESULTS A. gap 10 8 - 16 mmol/L HISTORICAL RESULTS Plasma 02/04/2013 9:50 AM CDT Gabby Segura MD LAB BLOOD ORDERABLES Final Re sult Performing Organization Address [facility] Co de Phone Number HISTORICAL RESULTS * ELECTROCARDIOGRAPHY (ECG) (02/04/2013) Narrative 02/04/2013 Ordered by an unspecified provider. Historical Provider ECG ORDERABLES Final Res ult * CHEST RADIOGRAPHY, FRONTAL (AP), LATERAL (02/03/2013 12:19 PM CDT) Anatomical Region Laterality Modality N/A Radiographic Mireya ging 02/03/2013 12:1 9 PM CDT Narrative 02/03/2013 3:42 PM CDT DATE OF EXAM: ??Feb 03 2013 12:19PM Acc#: ??[id number] ??[id number] - XR Chest 2 Views ?? DIAGNOSIS: ??CHEST DISCOMFORT CLINICAL HISTORY: ?? Congestion_Congestion ?? RESULT: \ CHEST AP and lateral views of the chest are compared with the previous study dated 04/10/2011. ??Calcified right hilar lymph nodes. The remainder of the lungs are clear. Heart not enlarged. Aortic atherosclerosis. ??No failure. IMPRESSION: ?\ NO ACTIVE DISEASE. BRAKE SPECIALIST: ??DMAndria TRANSCRIBE DATE/TIME: ??Feb 03 2013 ??2:44P RADIOLOGIST: ??OLIVIER MCKEON M.D. ??READ ON: ??Feb 03 2013 12:26P ORDERING DR: FILI QUINTERO M.D. THIS DOCUMENT HAS BEEN ELECTRONICALLY SIGNED BY: ??OLIVIER MCKEON M.D. ??ON: ??Feb 03 2013 ??3:42P Procedure Note Provider, MD Desiree - 09/11/2016 DATE OF EXAM: Feb 03 2013 12:19PM Acc#: [id number] - XR Chest 2 Views DIAGNOSIS: CHEST DISCOMFORT CLINICAL HISTORY: Congestion_Congestion RESULT: \ CHEST AP and lateral views of the chest are compared with the previous study dated 04/10/2011. Calcified right hilar lymph nodes. The remainder of the lungs are clear. Heart not enlarged. Aortic atherosclerosis. No failure. IMPRESSION: \ NO ACTIVE DISEASE. BRAKE SPECIALIST: DELORIS TRANSCRIBE DATE/TIME: Feb 03 2013 2:44P RADIOLOGIST: OLIVIER MCKEON M.D. READ ON: Feb 03 2013 12:26P ORDERING DR: FILI QUINTERO M.D. THIS DOCUMENT HAS BEEN ELECTRONICALLY SIGNED BY: OLIVIER MCKEON M.D. ON: Feb 03 2013 3:42P Historical Provider IMG XR PROCEDURES Final R esult * (ABNORMAL) Blood glucose, POC (02/03/2013 9:12 AM CDT) Glucose, POC, bld 172(H) 70 - 99 mg/dl HISTORICAL RESULTS Blood specimen (specimen) 02/03/2013 9:12 AM CDT Narrative HISTORICAL RESULTS - 02/03/2013 9:12 AM CDT Test performed at [facility], [address] [place] [address], [address]. Fili Quintero MD LAB BLOOD ORDERABLES Final Res ult HISTORICAL RESULTS * Blood lactic acid (02/03/2013 7:30 AM CDT) [facility] Lactic acid 1.6 0.5 - 2.2 mmol/L HISTORICAL RESULTS Blood specimen (specimen) 02/03/2013 7:30 AM CDT Narrative HISTORICAL RESULTS - 02/03/2013 7:35 AM CDT Test performed at [facility], [address] [place] [address], [facility]. Jennifer CA LAB BLOOD ORDERABLES Final Re sult Performing Organization Address [facility] de Phone Number HISTORICAL RESULTS * Blood B-type natriuretic peptide (BNP) (02/03/2013 6:40 AM CDT) [facility] BNP 27 0 - 100 pg/ml HISTORICAL RESULTS Blood specimen (specimen) 02/03/2013 6:40 AM CDT Narrative HISTORICAL RESULTS - 02/03/2013 7:44 AM CDT Test performed at [address], [facility]. Jennifer [place] LAB BLOOD ORDERABLES Final Re sult Performing Organization Address [facility] de Phone Number HISTORICAL RESULTS * (ABNORMAL) Blood hemoglobin A1C (02/03/2013 6:40 AM CDT) [facility] Hgb A1C 7.7(H) 4.0 - 6.0 % HISTORICAL RESULTS Comment: Hemoglobin A1c ADA Interpretive Guidelines: ?<7% ?? Glycemia controlled ?>8% ?? Hyperglycemia, additional action recommended ?Jerilyn Immunochemical Method Blood specimen (specimen) 02/03/2013 6:40 AM CDT Narrative HISTORICAL RESULTS - 02/03/2013 5:48 PM CDT Test performed at [address], [facility]. Kike Yi MD LAB BLOOD ORDE RICHIE Final Result Performing Organization Address [facility] Co de Phone Number HISTORICAL RESULTS * (ABNORMAL) Plasma basic metabolic panel (02/03/2013 6:40 AM CDT) Creatinine 1.02 0.6 - 1.3 mg/dl HISTORICAL RESULTS Sodium 135 135 - 145 mmol/L HISTORICAL RESULTS Calcium 10.4 8.4 - 10.5 mg/dl HISTORICAL RESULTS K, pl 3.8 3.5 - 5.1 mmol/L HISTORICAL RESULTS eGFR 53 90 - 200 ml/min/1.7 3 m2 HISTORICAL RESULTS Comment: If this individual is -Citizen Of [place], multiply result by 1.21 Repeated results of less than 60 is indicative of chronic kidney disease. MDRD formula has not been validated on individuals greater than 70 years old. Chloride 101 100 - 114 mmol/L HISTORICAL RESULTS CO2 28 22 - 32 mmol/L HISTORICAL RESULTS BUN 22 10 - 26 mg/dl HISTORICAL RESULTS Glucose 201(H) 70 - 99 mg/dl HISTORICAL RESULTS A. gap 10 8 - 16 mmol/L HISTORICAL RESULTS Plasma 02/03/2013 6:40 AM CDT Narrative HISTORICAL RESULTS - 02/03/2013 7:00 AM CDT Test performed at [facility], [address] [place] [address], [facility], [facility]. us Fili Quintero MD LAB BLOOD ORDERABLES Final Res ult Performing Organization Address [facility] Co de Phone Number HISTORICAL RESULTS * Blood cell count (CBC), morphologic exam (02/03/2013 6:40 AM CDT) WBC 8.0 5.0 - 10.0 K/cumm HISTORICAL RESULTS RBC 4.92 4.20 - 5.20 M/cumm HISTORICAL RESULTS Hgb 15.0 12.0 - 15.0 g/dl HISTORICAL RESULTS Hct 43.9 37.0 - 47.0 % HISTORICAL RESULTS MCV 89.2 82.0 - 96.0 fl HISTORICAL RESULTS MCH 30.5 27.0 - 32.0 pg HISTORICAL RESULTS MCHC 34.2 29.0 - 35.0 g/dl HISTORICAL RESULTS Platelets 273 150 - 450 K/cumm HISTORICAL RESULTS RDW 43.7 36.4 - 46.3 fl HISTORICAL RESULTS Rdw 13.5 11.5 - 14.5 % HISTORICAL RESULTS MPV 11.1 8.6 - 12.6 fl HISTORICAL RESULTS Neutrophils 65.6 42.0 - 85.0 % HISTORICAL RESULTS Neutrophils, abs 5.2 2.1 - 8.5 K/cumm HISTORICAL RESULTS Lymphocytes 18.1 16.0 - 52.0 % HISTORICAL RESULTS Lymphocytes, abs 1.4 0.8 - 5.2 K/cumm HISTORICAL RESULTS Monos 11.2 1.0 - 13.0 % HISTORICAL RESULTS Monocytes, absolute 0.9 0.0 - 1.3 K/cumm HISTORICAL RESULTS Eosinophils 4.0 0.0 - 7.0 % HISTORICAL RESULTS Eosinophils, abs 0.3 0.0 - 0.7 K/cumm HISTORICAL RESULTS Basophils 0.3 0.0 - 4.0 % HISTORICAL RESULTS Basophils, abs 0.0 0.0 - 0.4 K/cumm HISTORICAL RESULTS Young granulocytes, % 0.8 0.0 - 1.0 % HISTORICAL RESULTS Young granulocyte 0.06 0.00 - 0.10 K/cumm HISTORICAL RESULTS NRBC 0.0 0.0 - 0.2 #/100 WBC HISTORICAL RESULTS NRBC, abs 0.00 0.00 - 0.01 K/cumm HISTORICAL RESULTS Blood specimen (specimen) 02/03/2013 6:40 AM CDT Narrative HISTORICAL RESULTS - 02/03/2013 6:53 AM CDT Test performed at [facility], [address] [place] [address], [facility]. Fili Quintero MD LAB BLOOD ORDERABLES Final Res ult HISTORICAL RESULTS * Blood Microbiology (02/03/2013 12:00 AM CDT) 02/03/2013 Narrative HISTORICAL RESULTS - 02/09/2013 11:53 AM CDT [facility] ?Patient Name: ?LOC ANDERSON ?Med. Rec#: ?? [id number] ?Pt. Acct.#: ??[id number] ?Birthdate: ?? 1940 ?Age / Sex: ?? 72Y / F ?Location: ?[facility] ([facility]) ?Admit Date: ??02/03/2013 ?Discharge Date: ? 02/06/2013 ?Doctor: ?Kike Yi MD ?Patient Type: ?CH Inpatient Culture, Blood ? Collected: 02/03/2013 12:25 Specimen: Blood ?? Specimen Source: Blood, NOS Status: Final ??Last Update: 02/03/2013 14:27 Culture Result ?? No Growth Culture, Blood ? Collected: 02/03/2013 11:40 Specimen: Blood ?? Specimen Source: Blood, NOS Status: Final ??Last Update: 02/03/2013 14:27 Culture Result ?? No Growth us Historical Provider LAB MICROBIOLOGY - GENERA L ORDERABLES Final Result HISTORICAL RESULTS documented in this encounter Visit Diagnoses Diagnosis Asthma with exacerbation Unspecified asthma, with exacerbation Hypertensive heart disease without congestive heart failure Unspecified hypertensive heart disease without heart failure Hypoxemia Personal history of transient ischemic attack (TIA) and cerebral infarction without residual deficit Esophageal reflux History of other malignant neoplasm of skin Other and unspecified hyperlipidemia Encounter for long-term use of antiplatelets/antithrombotics Encounter for long-term (current) use of antiplatelets/antithrombotics Encounter for long-term (current) use of other medications Obstructive sleep apnea Obstructive sleep apnea (adult) (pediatric) Acute bronchitis Obesity Obesity, unspecified Dietary counseling and surveillance Body mass index 31.0-31.9, adult Body Mass Index 31.0-31.9, adult Flushing Dysphonia Adrenal cortical steroids causing adverse effect in therapeutic use Antacids and antigastric secretion drugs causing adverse effect in therapeutic use documented in this encounter Care Teams Surveyor'S Assistant Relationship Specialty Start Date End Date Jarrell Garrison MD PCP - General 01/25/11 09/25/15 documented as of this encounter
--- OUTSIDE RECORDS SUMMARY | 2024-05-26 13:03 | XMS_ITS | Encounter Summary ---
Author Organization [facility] Healthcare Address [address] [place] [address] Care Team Providers Care Political Research Scientist Name Role Phone Jarrell Garrison MD Primary Care Provider [phone] Encounter Details Date Type Department Care Team (Late st Contact Info) Description 07/24/2012 11:19 AM CLOTH TEARER - 07/24/2012 11:59 PM CLOTH TEARER Hospital Encounter [facility] Other screening mammogram Social History Tobacco Use Types Packs/Day Years Used Date Smoking Tobacco: Never Assessed Comments Unknown Sex and Gender Information Value Date Recorded Sex Assigned at Not on file Legal Sex Female 6:56 PM CLOTH TEARER Gender Identity Not on file Sexual Orientation [...] Procedure Name Priority Date/Time Associated Diagnosis Comments DIGITAL MAMMOGRAPHY Routine 07/24/2012 1 1:57 AM CLOTH TEARER documented in this encounter Results * DIGITAL MAMMOGRAPHY (07/24/2012 11:57 AM CLOTH TEARER) Anatomical Region Laterality Modality Breast Mammography 07/24/2012 11:5 7 AM CLOTH TEARER Narrative 07/25/2012 11:15 AM CLOTH TEARER Acc#: ??[id number] [facility] 0012 - Screening Mamm BI DATE OF EXAM: ??Mar ??2012 11:57AM DIAGNOSIS: ??BREAST CA SCREENING NOS PAIN IN LIMB CLINICAL HISTORY: ??mammogram screening RESULT: ?\ BILATERAL SCREENING DIGITAL MAMMOGRAPHY WITH CAD, 07/24/2012: HISTORY: ??This is a 71-year-old female with family history of breast cancer in her mother at age 53. She is status post hysterectomy and oophorectomy in 1985. This is her annual screening study. COMPARISON: ??Bilateral mammograms on 01/02/2011 and 11/29/2009. The breasts are heterogeneously dense. In the lateral left breast, 4.3 cm deep to the nipple marker on left CC view, an isodense asymmetric opacity is identified with a slightly irregular shape and suspected minimal marginal spiculation. However, the margins of this asymmetric opacity are partially obscured. There are calcifications in the same region of the breast which may be associated with this lesion or represent overlapping atherosclerotic calcifications. A similar finding is not identified in the previous examinations given the technical differences. The density of this asymmetric opacity, however, is not significantly different from additional apparently stable isodense nodular opacities in the breasts. In upper left breast, almost in the same depth of the finding in CC view, there is an asymmetric opacity with adjacent calcifications on the left MLO view. This most likely correlates with the location of the suspected finding on CC view and, therefore, further diagnostic mammographic and sonographic imaging of the left breast at about 12:30 o'clock position is recommended. ?? An isodense mass with apparent fatty hilum is suspected in the upper outer quadrant of the left breast, about 8.5 cm deep to the nipple marker which may represent an intramammary lymph node. This, however, is not visible in the 2010 study. Again, diagnostic mammographic and sonographic imaging of this lesion is recommended. This is seen almost at 2 o'clock position. Benign calcifications in the remainder of the breasts are noted. No skin thickening, clustered microcalcifications, other masses, or architectural distortions are identified. This examination has been subjected to R2/CAD analysis. ? IMPRESSION: ?\ 1. ??BI-RADS - CATEGORY 0, INCOMPLETE. 2. ??FURTHER DIAGNOSTIC MAMMOGRAPHIC AND SONOGRAPHIC IMAGING OF THE FOCAL AREAS OF CONCERN IN UPPER OUTER QUADRANT OF THE LEFT BREAST ARE RECOMMENDED DISCUSSED ABOVE. 3. ??SCREENING MAMMOGRAPHY OF THE RIGHT BREAST IN 12 MONTHS IS RECOMMENDED. TECHNOLOGIST: ?? RADHA ORTIZ,TECHNOLOGIST MEDICAL IMAGING MACHINE REBUILDER: ??LB3 TRANSCRIBE DATE/TIME: ??Mar ??8 2012 ??5:47P RADIOLOGIST: ??ROWAN GUILLERMO M.D. ??READ ON: ??Mar ??8 2012 ??5:06P ORDERING DR: GRUPO GARCIA M.D. THIS DOCUMENT HAS BEEN ELECTRONICALLY SIGNED BY: ??ROWAN GUILLERMO M.D. ??ON: ??Mar ??2012 11:15A ? MACHINE REBUILDER: ??LB3 TRANSCRIBE DATE/TIME: ??Mar ??8 2013 ??5:47P RADIOLOGIST: ??ROWAN GUILLERMO M.D. ??READ ON: ??Mar ??8 2013 ??5:06P ORDERING DR: GRUPO GARCIA M.D. THIS DOCUMENT HAS BEEN ELECTRONICALLY SIGNED BY: ??ROWAN GUILLERMO M.D. ??ON: ??Mar ??9 2012 11:15A Procedure Note Provider, Historical, MD - 09/11/2016 Acc#: [id number] [facility] 0012 - Screening Mamm BI DATE OF EXAM: Jul 24 2012 11:57AM DIAGNOSIS: BREAST CA SCREENING NOS PAIN IN LIMB CLINICAL HISTORY: mammogram screening RESULT: \ BILATERAL SCREENING DIGITAL MAMMOGRAPHY WITH CAD, 07/24/2012: HISTORY: This is a 71-year-old female with family history of breast cancer in her mother at age 53. She is status post hysterectomy and oophorectomy in 1985. This is her annual screening study. COMPARISON: Bilateral mammograms on 01/02/2011 and 11/29/2009. The breasts are heterogeneously dense. In the lateral left breast, 4.3 cm deep to the nipple marker on left CC view, an isodense asymmetric opacity is identified with a slightly irregular shape and suspected minimal marginal spiculation. However, the margins of this asymmetric opacity are partially obscured. There are calcifications in the same region of the breast which may be associated with this lesion or represent overlapping atherosclerotic calcifications. A similar finding is not identified in the previous examinations given the technical differences. The density of this asymmetric opacity, however, is not significantly different from additional apparently stable isodense nodular opacities in the breasts. In upper left breast, almost in the same depth of the finding in CC view, there is an asymmetric opacity with adjacent calcifications on the left MLO view. This most likely correlates with the location of the suspected finding on CC view and, therefore, further diagnostic mammographic and sonographic imaging of the left breast at about 12:30 o'clock position is recommended. An isodense mass with apparent fatty hilum is suspected in the upper outer quadrant of the left breast, about 8.5 cm deep to the nipple marker which may represent an intramammary lymph node. This, however, is not visible in the 2010 study. Again, diagnostic mammographic and sonographic imaging of this lesion is recommended. This is seen almost at 2 o'clock position. Benign calcifications in the remainder of the breasts are noted. No skin thickening, clustered microcalcifications, other masses, or architectural distortions are identified. This examination has been subjected to R2/CAD analysis. IMPRESSION: \ 1. BI-RADS - CATEGORY 0, INCOMPLETE. 2. FURTHER DIAGNOSTIC MAMMOGRAPHIC AND SONOGRAPHIC IMAGING OF THE FOCAL AREAS OF CONCERN IN UPPER OUTER QUADRANT OF THE LEFT BREAST ARE RECOMMENDED DISCUSSED ABOVE. 3. SCREENING MAMMOGRAPHY OF THE RIGHT BREAST IN 12 MONTHS ISRECOMMENDED. TECHNOLOGIST: RADHA ORTIZTECHNOLOGIST MEDICAL IMAGING MACHINE REBUILDER: JUMANA TRANSCRIBE DATE/TIME: Jul 24 2012 5:47P RADIOLOGIST: ROWAN GUILLERMO M.D. READ ON: Jul 24 2012 5:06P ORDERING DR: GRUPO GARCIA M.D. THIS DOCUMENT HAS BEEN ELECTRONICALLY SIGNED BY: ROWAN GUILLERMO M.D. ON: Jul 25 2012 11:15A MACHINE REBUILDER: JUMANA TRANSCRIBE DATE/TIME: Jul 24 2012 5:47P RADIOLOGIST: ROWAN GUILLERMO M.D. READ ON: Jul 24 2012 5:06P ORDERING DR: GRUPO GARCIA M.D. THIS DOCUMENT HAS BEEN ELECTRONICALLY SIGNED BY: ROWAN GUILLERMO M.D. ON: Jul 25 2012 11:15A Historical Provider MD GOMES MAMMO PROCEDURES Bárbara l Result documented in this encounter Visit Diagnoses Diagnosis Other screening mammogram documented in this encounter Care Teams Political Research Scientist Relationship Specialty Start Date End Date Jarrell Garrison MD PCP - General 01/25/11 09/25/15 documented as of this encounter
--- OUTSIDE RECORDS SUMMARY | 2024-05-26 13:03 | XMS_ITS | Encounter Summary ---
Author Organization [facility] Healthcare Address [address] [place] [address] Care Team Providers Care Dray Driver Name Role Phone Jarrell Garrison MD Primary Care Provider +1 -[phone] Encounter Details Date Type Department Care Team (Late st Contact Info) Description 11/18/2013 3:37 PM CDT - 11/18/2013 11:59 PM CDT Hospital Encounter [facility] Encounter for screening mammogram for high-risk patient; Family history of malignant neoplasm of breast Social History Tobacco Use Types Packs/Day Years Used Date Smoking Tobacco: Never Alcohol Use Standard Drinks/Week Comments No 0 (1 standard drink = 0.6 oz pur e alcohol) Comments Unknown Sex and Gender Information Value Date Recorded Sex Assigned at Not on file Legal Sex Female 6:56 PM 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 Gender Identity Not on file Sexual [...] Comments DIAGNOSTIC MAMMOGRAM BILATERAL W WILL Routine 11/18/2013 4:07 PM CDT documented in this encounter Results * DIAGNOSTIC MAMMOGRAM BILATERAL W WILL (11/18/2013 4:07 PM CDT) Anatomical Region Laterality Modality Breast Bilateral Mammography 11/18/2013 4:07 PM CDT Narrative 11/19/2013 12:22 PM CDT Acc#: ??[id number] [facility] 0034 - Screening Mamm W Will Bi DATE OF EXAM: ??Nov ??2013 ??4:07PM DIAGNOSIS: ??SCREEN MAMMOGRAPHY NEC CLINICAL HISTORY: ??SCREEN MAMMOGRAPHY RESULT: ?\ BILATERAL SCREENING DIGITAL MAMMOGRAPHY WITH CAD AND TOMOSYNTHESIS, ?? 11/18/2013. HISTORY: Routine screening. The patient's mother had breast cancer at age 53. COMPARISON: Bilateral mammograms dated 12/22/2009, 01/02/2011 and 07/24/2012 as well as left diagnostic mammograms dated 08/19/2012 and 12/22/2009. TECHNIQUE: Full view digital CC and MLO views of the breasts were obtained using 2D and 3D technique with tomosynthesis. The ??images were subjected to R2/CAD analysis. FINDINGS: The breasts are heterogeneously dense. Small isodense nodular opacities in the upper outer quadrant of the left breast have not significantly changed since 2009 on the diagnostic mammographic studies. ?? Tomosynthesis does not demonstrate suspicious underlying masses on either side. There are benign calcifications scattered in the breasts. ??No suspicious interval changes, suspicious masses, clustered microcalcifications, skin thickening, architectural distortion or suspicious lymph nodes are identified. ? IMPRESSION: 1. BI-RADS CATEGORY 2, BENIGN. 2. BILATERAL SCREENING MAMMOGRAPHY IN 12 MONTHS, REGULAR MONTHLY SELF-BREAST EXAMINATIONS AND YEARLY BREAST EXAMINATION BY A PHYSICIAN ARE RECOMMENDED. This facility has a system in place to inform the patient and the referring physician of the results, to call the patient back, and to send a reminder notice for annual or followup mammographic studies to the patient. TECHNOLOGIST: ?? ROXANA MORALES, TECHNOLOGIST MEDICAL IMAGING PRN INGREDIENT SCALER: ??DM2 TRANSCRIBE DATE/TIME: ??Paco ??3 2014 ??5:12P RADIOLOGIST: ??ROWAN GUILLERMO M.D. ??READ ON: ??Paco ??3 2014 ??5:01P ORDERING DR: GRUPO GARCIA M.D. THIS DOCUMENT HAS BEEN ELECTRONICALLY SIGNED BY: ??ROWAN GUILLERMO M.D. ??ON: ??Paco ??4 2013 12:22P ? INGREDIENT SCALER: ??DM2 TRANSCRIBE DATE/TIME: ??Paco ??3 2014 ??5:12P RADIOLOGIST: ??ROWAN GUILLERMO M.D. ??READ ON: ??Paco ??3 2014 ??5:01P ORDERING DR: GRUPO GARCIA M.D. THIS DOCUMENT HAS BEEN ELECTRONICALLY SIGNED BY: ??ROWAN GUILLERMO M.D. ??ON: ??Paco ??4 2013 12:22P Requesting Fax: ??[phone] Procedure Note Provider, MD Desiree - 09/11/2016 Acc#: [id number] [facility] 0034 - Screening Mamm W Will Bi DATE OF EXAM: Nov 18 2013 4:07PM DIAGNOSIS: SCREEN MAMMOGRAPHY NEC CLINICAL HISTORY: SCREEN MAMMOGRAPHY RESULT: \ BILATERAL SCREENING DIGITAL MAMMOGRAPHY WITH CAD AND TOMOSYNTHESIS, 11/18/2013. HISTORY: Routine screening. The patient's mother had breast cancer at age 53. COMPARISON: Bilateral mammograms dated 12/22/2009, 01/02/2011 and 07/24/2012 as well as left diagnostic mammograms dated 08/19/2012 and 12/22/2009. TECHNIQUE: Full view digital CC and MLO views of the breasts were obtained using 2D and 3D technique with tomosynthesis. The images were subjected to R2/CAD analysis. FINDINGS: The breasts are heterogeneously dense. Small isodense nodular opacities in the upper outer quadrant of the left breast have not significantly changed since 2009 on the diagnostic mammographic studies. Tomosynthesis does not demonstrate suspicious underlying masses on either side. There are benign calcifications scattered in the breasts. No suspicious interval changes, suspicious masses, clustered microcalcifications, skin thickening, architectural distortion or suspicious lymph nodes are identified. IMPRESSION: 1. BI-RADS CATEGORY 2, BENIGN. 2. BILATERAL SCREENING MAMMOGRAPHY IN 12 MONTHS, REGULAR MONTHLY SELF-BREAST EXAMINATIONS AND YEARLY BREAST EXAMINATION BY A PHYSICIAN ARE RECOMMENDED. This facility has a system in place to inform the patient and the referring physician of the results, to call the patient back, and to send a reminder notice for annual or followup mammographic studies to the patient. TECHNOLOGIST: ROXANA MORALES, TECHNOLOGIST MEDICAL IMAGING PRN INGREDIENT SCALER: DELORIS TRANSCRIBE DATE/TIME: Nov 18 2013 5:12P RADIOLOGIST: ROWAN GUILLERMO M.D. READ ON: Nov 18 2013 5:01P ORDERING DR: GRUPO GARCIA M.D. THIS DOCUMENT HAS BEEN ELECTRONICALLY SIGNED BY: ROWAN GUILLERMO M.D. ON: Nov 19 2013 12:22P INGREDIENT SCALER: DELORIS TRANSCRIBE DATE/TIME: Nov 18 2013 5:12P RADIOLOGIST: ROWAN GUILLERMO M.D. READ ON: Nov 18 2013 5:01P ORDERING DR: GRUPO GARCIA M.D. THIS DOCUMENT HAS BEEN ELECTRONICALLY SIGNED BY: ROWAN GUILLERMO M.D. ON: Nov 19 2013 12:22P Requesting us Historical Provider MD GOMES MAMMO PROCEDURES Bárbara l Result documented in this encounter Visit Diagnoses Diagnosis Encounter for screening mammogram for high-risk patient Family history of malignant neoplasm of breast documented in this encounter Care Teams Dray Driver Relationship Specialty Start Date End Date Jarrell Garrison MD PCP - General 01/25/11 09/25/15 documented as of this encounter
--- OUTSIDE RECORDS SUMMARY | 2024-05-26 13:03 | XMS_ITS | Encounter Summary ---
Author Organization [facility] Healthcare Address [address] [place] [address] Care Team Providers Care Retail Store Clerk Name Role Phone Jarrell Garrison MD Primary Care Provider [phone] [phone] Encounter Details Date Type Department Care Team (Late st Contact Info) Description 10/05/2014 9:28 AM CDT - 10/05/2014 11:59 PM CDT Hospital Encounter [place] [address] 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
--- OUTSIDE RECORDS SUMMARY | 2024-05-26 13:03 | XMS_ITS | Encounter Summary ---
Author Organization [facility] Healthcare Address [address] [place] [address] Care Team Providers Care Supervisor Roller Shop Name Role Phone Jarrell Garrison MD Primary Care Provider +1 [phone] Encounter Details Date Type Department Care Team (Late st Contact Info) Description 07/30/2011 10:56 AM CDT - 07/30/2011 11:59 PM CDT Hospital Encounter [facility] Pure hypercholesterolemia; Hypertensive heart disease without congestive heart failure Social History Tobacco Use Types Packs/Day Years Used Date Smoking Tobacco: Never Assessed Comments Unknown Sex and Gender Information Value Date Recorded Sex Assigned at Not on file Legal Sex Female 6:56 PM DIRECTOR ENVIRONMENTAL Gender Identity Not on file Sexual Orientation [...] as of this encounter Visit Diagnoses Diagnosis Pure hypercholesterolemia Hypertensive heart disease without congestive heart failure Unspecified hypertensive heart disease without heart failure documented in this encounter Care Teams Supervisor Roller Shop Relationship Specialty Start Date End Date Jarrell Garrison MD PCP - General 01/25/11 09/25/15 documented as of this encounter
--- OUTSIDE RECORDS SUMMARY | 2024-05-26 13:03 | XMS_ITS | Encounter Summary ---
Author Organization [facility] Healthcare Address [address] [place] [address] Care Team Providers Care Soldering Machine Operator Name Role Phone Jarrell Garrison MD Primary Care Provider +1 [phone] Encounter Details Date Type Department Care Team (Late st Contact Info) Description 12/12/2014 7:28 PM CDT - 12/12/2014 11:59 PM CDT Hospital Encounter [facility] Nausea with vomiting; Diarrhea; Generalized muscle weakness Social History Tobacco Use Types Packs/Day Years Used Date Smoking Tobacco: Never Alcohol Use Standard Drinks/Week Comments No 0 (1 standard drink = 0.6 oz pur e alcohol) Comments Unknown Sex and Gender Information Value Date Recorded Sex Assigned at Not on file Legal Sex Female 6:56 PM COTTON OPENER Gender Identity Not on file Sexual Orientation [...] as of this encounter Visit Diagnoses Diagnosis Nausea with vomiting Diarrhea Generalized muscle weakness Muscle weakness (generalized) documented in this encounter Care Teams Soldering Machine Operator Relationship Specialty Start Date End Date Jarrell Garrison MD PCP - General 01/25/11 09/25/15 documented as of this encounter
--- OUTSIDE RECORDS SUMMARY | 2024-05-26 13:03 | XMS_ITS | Encounter Summary ---
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
--- OUTSIDE RECORDS SUMMARY | 2024-05-26 13:03 | XMS_ITS | Encounter Summary ---
Author Organization [facility] Healthcare Address [address] [place] [address] Care Team Providers Care Cat Tender Name Role Phone Jarrell Garrison MD Primary Care Provider +1 -[phone] Encounter Details Date Type Department Care Team (Late st Contact Info) Description 04/10/2011 4:09 PM CHEMICAL PROCESS EQUIPMENT OPERATOR - 04/10/2011 11:59 PM CHEMICAL PROCESS EQUIPMENT OPERATOR Hospital Encounter [facility] Acute bronchitis Social History Tobacco Use Types Packs/Day Years Used Date Smoking Tobacco: Never Assessed Comments Unknown Sex and Gender Information Value Date Recorded Sex Assigned at Not on file Legal Sex Female 6:56 PM CHEMICAL PROCESS EQUIPMENT OPERATOR Gender Identity Not on file Sexual [...] bronchitis documented in this encounter Care Teams Cat Tender Relationship Specialty Start Date End Date Jarrell Garrison MD PCP - General 01/25/11 09/25/15 documented as of this encounter
--- OUTSIDE RECORDS SUMMARY | 2024-05-26 13:03 | XMS_ITS | Encounter Summary ---
Author Organization [facility] Healthcare Address [address] [place] [address] Care Team Providers Care Supervisor Audit Clerks Name Role Phone Jarrell Garrison MD Primary Care Provider +1 -[phone] Encounter Details Date Type Department Care Team (Late st Contact Info) Description 08/08/2010 3:51 PM CDT - 08/08/2010 11:59 PM CDT Hospital Encounter [facility] Acute bronchitis Social History Tobacco Use Types Packs/Day Years Used Date Smoking Tobacco: Never Assessed Comments Unknown Sex and Gender Information Value Date Recorded Sex Assigned at Not on file Legal Sex Female 6:56 PM CLINICAL ATHLETIC INSTRUCTOR Gender Identity Not on file Sexual [...] bronchitis documented in this encounter Care Teams Supervisor Audit Clerks Relationship Specialty Start Date End Date Jarrell Garrison MD PCP - General 10/29/07 01/24/11 documented as of this encounter
--- OUTSIDE RECORDS SUMMARY | 2024-05-26 13:03 | XMS_ITS | Encounter Summary ---
Author Organization [facility] Healthcare Address [address] [place] [address] Care Team Providers Care Act Tutor Name Role Phone Jarrell Garrison MD Primary Care Provider +1 -[phone] Encounter Details Date Type Department Care Team (Late st Contact Info) Description 08/19/2012 2:56 PM CDT - 08/19/2012 11:59 PM CDT Hospital Encounter [facility] Abnormal mammogram Social History Tobacco Use Types Packs/Day Years Used Date Smoking Tobacco: Never Assessed Comments Unknown Sex and Gender Information Value Date Recorded Sex Assigned at Not on file Legal Sex Female 6:56 PM CONTROL OFFICER Gender Identity Not on file Sexual [...] Priority Date/Time Associated Diagnosis Comments US BREAST LIMITED Routine 08/19/2012 4:2 5 PM CDT DIGITAL MAMMOGRAPHY, UNILATERAL Routine 08/19/2012 3:28 PM CDT documented in this encounter Results * US Breast Limited (08/19/2012 4:25 PM CDT) Anatomical Region Laterality Modality Breast N/A Ultrasound 08/19/2012 4:25 PM CDT Narrative 08/19/2012 6:18 PM CDT DATE OF EXAM: ??Aug ??2012 ??4:25PM Acc#: ??[id number] ??[facility] 0051 - US Breast L ?? DIAGNOSIS: ??ABNORMAL MAMMOGRAM NOS CLINICAL HISTORY: ?? LT BREAST DENSITIES F/U MAMM ?? RESULT: \ EXAMINATION: ??LIMITED LEFT BREAST SONOGRAM: FINDINGS: At approximately 5 cm deep from the nipple and at the 2 o'clock to 3 o'clock position, a rounded anechoic lesion with thin lou and increased through transmission with small tail-like projection is present. This simple cyst measures 8.1 x 5.1 x 6.5 mm. No vascular flow is identified within this lesion. No other focal mass or cyst was identified within the upper outer left breast 7-12 cm deep from the nipple and from the 12 o'clock to 4 o'clock position. IMPRESSION: ?\ SIMPLE LEFT BREAST CYST 5 CM DEEP FROM THE NIPPLE AT THE 2-3 O'CLOCK POSITION. THIS IS A BENIGN FINDING AND CORRESPONDS TO THE ASYMMETRY IDENTIFIED ON MAMMOGRAPHY. PRINCIPAL ANDROID DEVELOPER: ??LB3 TRANSCRIBE DATE/TIME: ??Aug ??2012 ??5:09P RADIOLOGIST: ??ANDREI CEE M.D. ??READ ON: ??Apr ??3 2012 ??4:50P ORDERING DR: GRUPO GARCIA M.D. THIS DOCUMENT HAS BEEN ELECTRONICALLY SIGNED BY: ??ANDREI CEE M.D. ??ON: ??Aug ??3 2012 ??6:18P Procedure Note Provider, MD Desiree - 09/11/2016 DATE OF EXAM: Aug 19 2012 4:25PM Acc#: [id number] [facility] 0051 - US Breast L DIAGNOSIS: ABNORMAL MAMMOGRAM NOS CLINICAL HISTORY: LT BREAST DENSITIES F/U MAMM RESULT: \ EXAMINATION: LIMITED LEFT BREAST SONOGRAM: FINDINGS: At approximately 5 cm deep from the nipple and at the 2 o'clock to 3 o'clock position, a rounded anechoic lesion with thin lou and increased through transmission with small tail-like projection is present. This simple cyst measures 8.1 x 5.1 x 6.5 mm. No vascular flow is identified within this lesion. No other focal mass or cyst was identified within the upper outer left breast 7-12 cm deep from the nipple and from the 12 o'clock to 4 o'clock position. IMPRESSION: \ SIMPLE LEFT BREAST CYST 5 CM DEEP FROM THE NIPPLE AT THE 2-3 O'CLOCK POSITION. THIS IS A BENIGN FINDING AND CORRESPONDS TO THE ASYMMETRY IDENTIFIED ON MAMMOGRAPHY. PRINCIPAL ANDROID DEVELOPER: JUMANA TRANSCRIBE DATE/TIME: Aug 19 2012 5:09P RADIOLOGIST: ANDREI CEE M.D. READ ON: Aug 19 2012 4:50P ORDERING DR: GRUPO GARCIA M.D. THIS DOCUMENT HAS BEEN ELECTRONICALLY SIGNED BY: ANDREI CEE M.D. ON: Aug 19 2012 6:18P us Historical Provider MD GOMES US PROCEDURES Final R esult * DIGITAL MAMMOGRAPHY, UNILATERAL (08/19/2012 3:28 PM CDT) Anatomical Region Laterality Modality Breast Mammography 08/19/2012 3:28 PM CDT Narrative 08/19/2012 5:09 PM CDT Acc#: ??[id number] [facility] 0013 - Diag Mamm - Addl Views Uni ??- LEFT DATE OF EXAM: ??Aug ??2012 ??3:28PM DIAGNOSIS: ??ABNORMAL MAMMOGRAM NOS CLINICAL HISTORY: ??abnormal mamm RESULT: ?\ EXAMINATION: ??DIAGNOSTIC DIGITAL LEFT BREAST MAMMOGRAM WITH CAD: DATE: 08/19/2012. HISTORY: ??71-year-old female presents for diagnostic left breast evaluation. The patient is currently asymptomatic. The patient's mother had a diagnosis of breast cancer at the age of 53. COMPARISON: Comparison is made to the screening mammographic examination dated 07/24/2012. FINDINGS: The breasts demonstrate scattered fibroglandular densities. Mole markers have been placed on the left breast. The previously described focal asymmetries is within the upper outer left breast persisted on the spot compression views. No other dominant masses, suspicious clustered microcalcifications, or architectural distortion is identified on the limited images. There is no breast skin thickening. On the limited left breast sonogram, at the 2-3 o'clock position and 5 cm deep from the nipple, a simple cyst is noted. This cyst measures 8.1 x 5.1 x 6.5 mm. No other focal lesion was identified within the upper outer left breast, 7-12 cm deep from the nipple and scanned from the 12-4 o'clock position. IMPRESSION: ?\ 1. BIRADS - CATEGORY 2, BENIGN. 2. FOCAL ASYMMETRY APPROXIMATELY 4.5 CM DEEP FROM THE NIPPLE WITHIN THE UPPER OUTER LEFT BREAST, CORRELATED WITH THE SIMPLE CYST IDENTIFIED ON THE SONOGRAPHIC EVALUATION. THIS IS A BENIGN FINDING. NO OTHER FOCAL CYST OR MASS WAS IDENTIFIED 7-12 CM DEEP AND FROM THE 12 O'CLOCK TO 4 O'CLOCK POSITOINS OF THE LEFT BREAST. 3. RECOMMENDATION INCLUDES CONTINUED ANNUAL SCREENING MAMMOGRAPHY, REGULAR MONTHLY BREAST SELF EXAMINATION, AND YEARLY BREAST EXAMINATION BY A PHYSICIAN. IMPRESSION OF OVERALL ASSESSMENT: CATEGORY 2 - BENIGN. TECHNOLOGIST: ?? UNA GORDON TECHNOLOGIST MEDICAL IMAGING PRINCIPAL ANDROID DEVELOPER: ??LB3 TRANSCRIBE DATE/TIME: ??Aug ??2012 ??5:07P RADIOLOGIST: ??ANDREI CEE M.D. ??READ ON: ??Aug ??2012 ??4:49P ORDERING DR: GRUPO GARCIA M.D. THIS DOCUMENT HAS BEEN ELECTRONICALLY SIGNED BY: ??ANDREI CEE M.D. ??ON: ??Aug ??2012 ??5:09P Procedure Note Provider, MD Desiree - 09/11/2016 Acc#: [id number] [facility] 0013 - Diag Mamm - Addl Views Uni - LEFT DATE OF EXAM: Aug 19 2012 3:28PM DIAGNOSIS: ABNORMAL MAMMOGRAM NOS CLINICAL HISTORY: abnormal mamm RESULT: \ EXAMINATION: DIAGNOSTIC DIGITAL LEFT BREAST MAMMOGRAM WITH CAD: DATE: 08/19/2012. HISTORY: 71-year-old female presents for diagnostic left breast evaluation. The patient is currently asymptomatic. The patient's mother had a diagnosis of breast cancer at the age of 53. COMPARISON: Comparison is made to the screening mammographic examination dated 07/24/2012. FINDINGS: The breasts demonstrate scattered fibroglandular densities. Mole markers have been placed on the left breast. The previously described focal asymmetries is within the upper outer left breast persisted on the spot compression views. No other dominant masses, suspicious clustered microcalcifications, or architectural distortion is identified on the limited images. There is no breast skin thickening. On the limited left breast sonogram, at the 2-3 o'clock position and 5 cm deep from the nipple, a simple cyst is noted. This cyst measures 8.1 x 5.1 x 6.5 mm. No other focal lesion was identified within the upper outer left breast, 7-12 cm deep from the nipple and scanned from the 12-4 o'clock position. IMPRESSION: \ 1. BIRADS - CATEGORY 2, BENIGN. 2. FOCAL ASYMMETRY APPROXIMATELY 4.5 CM DEEP FROM THE NIPPLE WITHIN THE UPPER OUTER LEFT BREAST, CORRELATED WITH THE SIMPLE CYST IDENTIFIED ON THE SONOGRAPHIC EVALUATION. THIS IS A BENIGN FINDING. NO OTHER FOCAL CYST OR MASS WAS IDENTIFIED 7-12 CM DEEP AND FROM THE 12 O'CLOCK TO 4 O'CLOCK POSITOINS OF THE LEFT BREAST. 3. RECOMMENDATION INCLUDES CONTINUED ANNUAL SCREENING MAMMOGRAPHY, REGULAR MONTHLY BREAST SELF EXAMINATION, AND YEARLY BREAST EXAMINATION BY A PHYSICIAN. IMPRESSION OF OVERALL ASSESSMENT: CATEGORY 2 - BENIGN. TECHNOLOGIST: UNA GORDON, TECHNOLOGIST MEDICAL IMAGING PRINCIPAL ANDROID DEVELOPER: JUMANA TRANSCRIBE DATE/TIME: Aug 19 2012 5:07P RADIOLOGIST: ANDREI CEE M.D. READ ON: Aug 19 2012 4:49P ORDERING DR: GRUPO GARCIA M.D. THIS DOCUMENT HAS BEEN ELECTRONICALLY SIGNED BY: ANDREI CEE M.D. ON: Aug 19 2012 5:09P us Historical Provider MD GOMES MAMMO PROCEDURES Bárbara l Result documented in this encounter Visit Diagnoses Diagnosis Abnormal mammogram Abnormal mammogram, unspecified documented in this encounter Care Teams Act Tutor Relationship Specialty Start Date End Date Jarrell Garrison MD PCP - General 01/25/11 09/25/15 documented as of this encounter
--- OUTSIDE RECORDS SUMMARY | 2024-05-26 13:03 | XMS_ITS | Encounter Summary ---
Author Organization [facility] Healthcare Address [address] [place] [address] Care Team Providers Care Civil Division Commander Deputy Sheriff Name Role Phone Jarrell Garrison MD Primary Care Provider +1 -[phone] Encounter Details Date Type Department Care Team (Late st Contact Info) Description 05/17/2013 11:29 AM INTRANET SPECIALIST - 05/17/2013 11:59 PM INTRANET SPECIALIST Hospital Encounter [facility] Yuliya Ibarra MD [id number] [place] [address] Hypercalcemia Social History Tobacco Use Types Packs/Day Years Used Date Smoking Tobacco: Never Alcohol Use Standard Drinks/Week Comments No 0 (1 standard drink = 0.6 oz pur e alcohol) Comments Unknown Sex and Gender Information Value Date Recorded Sex Assigned at Not on file Legal Sex Female 6:56 PM INTRANET SPECIALIST Gender Identity Not on file Sexual [...] Name Priority Date/Time Associated Diagnosis Comments URINE CREATININE CLEARANCE Routine 05/17/2013 5:40 AM INTRANET SPECIALIST URINE CALCIUM Routine 05/17/2013 5:40 AM INTRANET SPECIALIST DISCHARGE LABORATORY CUMULATIVE REPORT 05/17/2013 documented in this encounter Results * Urine calcium (05/17/2013 5:40 AM INTRANET SPECIALIST) Volume, ur 2225 ml HISTORICA L RESULTS Collection period, ur 1440 minutes HISTORICAL RESULTS Calcium, ur 2.8 mg/dl HISTORIC AL RESULTS Creatinine, ur 45 20 - 300 mg/dl HISTORICAL RESULTS Calcium, 24 hr, ur 62.3 50.0 - 300.0 mg/24 hr HISTORICAL RESULTS Creatinine, 24 hr, ur 1.00 0.60 - 1.80 g/24 hr HISTORICAL RESULTS Urine 05/17/2013 5:40 AM INTRANET SPECIALIST Narrative HISTORICAL RESULTS - 05/17/2013 9:20 AM INTRANET SPECIALIST FAX [phone] us Historical Provider LAB BLOOD ORDERABLES Bárbara l Result HISTORICAL RESULTS * (ABNORMAL) Urine creatinine clearance (05/17/2013 5:40 AM INTRANET SPECIALIST) Creatinine 1.40(H) 0.60 - 1.30 mg/dl HISTORICAL RESULTS Volume, 24 hr, ur 2225 ml HISTORICAL RESULTS Collection period, ur 1440 minutes HISTORICAL RESULTS Creatinine, ur 45 mg/dl HISTO RICAL RESULTS Creatinine, 24 hr, ur 1.00 0.60 - 1.80 g/24 hr HISTORICAL RESULTS Creatinine clearance 49(L) 75 - 115 ml/min HISTORICAL RESULTS Urine 05/17/2013 5:40 AM INTRANET SPECIALIST Narrative HISTORICAL RESULTS - 05/17/2013 9:21 AM INTRANET SPECIALIST FAX [phone] Historical Provider LAB BLOOD ORDERABLES Bárbara l Result HISTORICAL RESULTS * DISCHARGE LABORATORY CUMULATIVE REPORT (05/17/2013) Narrative 05/17/2013 Ordered by an unspecified provider. Historical Provider LAB BLOOD ORDERABLES Bárbara l Result documented in this encounter Visit Diagnoses Diagnosis Hypercalcemia documented in this encounter Care Teams Civil Division Commander Deputy Sheriff Relationship Specialty Start Date End Date Jarrell Garrison MD PCP - General 01/25/11 09/25/15 documented as of this encounter
--- OUTSIDE RECORDS SUMMARY | 2024-05-26 13:03 | XMS_ITS | Encounter Summary ---
Author Organization [facility] Healthcare Address [address] [place] [address] Care Team Providers Care Fiber Optic Central Office Installer Name Role Phone Jarrell Garrison MD Primary Care Provider +1 [phone] Encounter Details Date Type Department Care Team (Late st Contact Info) Description 07/21/2013 12:01 PM INSPECTOR PLUG SEAM - 07/21/2013 11:59 PM [facility] Hospital Encounter CH CLINCONV Sophia, Kaylynn Harmon MD [address] [place], [place] [id number] Hypopotassemia Social History Tobacco Use Types Packs/Day Years Used Date Smoking Tobacco: Never Alcohol Use Standard Drinks/Week Comments No 0 (1 standard drink = 0.6 oz pur e alcohol) Comments Unknown Sex and Gender Information Value Date Recorded Sex Assigned at Not on file Legal Sex Female 6:56 PM INSPECTOR PLUG SEAM Gender Identity Not on file Sexual Orientation [...] Hypopotassemia documented in this encounter Care Teams Fiber Optic Central Office Installer Relationship Specialty Start Date End Date Jarrell Garrison MD PCP - General 01/25/11 09/25/15 documented as of this encounter
--- OUTSIDE RECORDS SUMMARY | 2024-05-26 13:03 | XMS_ITS | Encounter Summary ---
Author Organization [facility] Healthcare Address [address] [place] [address] Care Team Providers Care Newspaper Illustrator Name Role Phone Jarrell Garrison MD Primary Care Provider +1 [phone] Encounter Details Date Type Department Care Team (Late st Contact Info) Description 11/03/2013 11:14 AM CDT - 11/03/2013 11:59 PM CDT Hospital Encounter CH CLINCONV Yuliya Ibarra MD [address] [address] [place] [address] Type 2 or unspecified type diabetes mellitus, uncontrolled Social History Tobacco Use Types Packs/Day Years Used Date Smoking Tobacco: Never Alcohol Use Standard Drinks/Week Comments No 0 (1 standard drink = 0.6 oz pur e alcohol) Comments Unknown Sex and Gender Information Value Date Recorded Sex Assigned at Not on file Legal Sex Female 6:56 PM ELECTRONIC SPECIALIST Gender Identity Not on file Sexual [...] Name Priority Date/Time Associated Diagnosis Comments BLOOD HEMOGLOBIN A1C Routine 11/03/2013 6:17 AM CDT DISCHARGE LABORATORY CUMULATIVE REPORT 11/03/2013 documented in this encounter Results * (ABNORMAL) Blood hemoglobin A1C (11/03/2013 6:17 AM CDT) [facility] Hgb A1C 7.1(H) 4.0 - 6.0 % HISTORICAL RESULTS Comment: Hemoglobin A1c ADA Interpretive Guidelines: ?<7% ?? Glycemia controlled ?>8% ?? Hyperglycemia, additional action recommended ?Jerilyn Immunochemical Method Blood specimen (specimen) 11/03/2013 6:17 AM CDT Narrative HISTORICAL RESULTS - 11/03/2013 9:59 AM CDT Test performed at [facility], [address] [place] [address], [facility], [facility]. Historical Provider LAB BLOOD ORDERABLES Bárbara mcdaniel Result HISTORICAL RESULTS * DISCHARGE LABORATORY CUMULATIVE REPORT (11/03/2013) Narrative 11/03/2013 Ordered by an unspecified provider. us Historical Provider LAB BLOOD ORDERABLES Bárbara l Result documented in this encounter Visit Diagnoses Diagnosis Type 2 or unspecified type diabetes mellitus, uncontrolled documented in this encounter Care Teams Newspaper Illustrator Relationship Specialty Start Date End Date Jarrell Garrison MD PCP - General 01/25/11 09/25/15 documented as of this encounter
--- OUTSIDE RECORDS SUMMARY | 2024-05-26 13:03 | XMS_ITS | Encounter Summary ---
Author Organization [facility] Healthcare Address [address] [place] [address] Care Team Providers Care Line Technician Name Role Phone Jarrell Garrison MD Primary Care Provider +1 [phone] Encounter Details Date Type Department Care Team (Late st Contact Info) Description 08/08/2014 1:34 PM CDT - 08/08/2014 11:59 PM CDT Hospital Encounter CH CLINCONV Yuliya Ibarra MD [address] [place] [address] Type 2 or unspecified type diabetes mellitus, uncontrolled Social History Tobacco Use Types Packs/Day Years Used Date Smoking Tobacco: Never Alcohol Use Standard Drinks/Week Comments No 0 (1 standard drink = 0.6 oz pur e alcohol) Comments Unknown Sex and Gender Information Value Date Recorded Sex Assigned at Not on file Legal Sex Female 6:56 PM SHELL TRIM OPERATOR Gender Identity Not on file Sexual [...] Associated Diagnosis Comments BLOOD HEMOGLOBIN A1C Routine 08/08/2014 8:37 AM CDT DISCHARGE LABORATORY CUMULATIVE REPORT 08/08/2014 documented in this encounter Results * (ABNORMAL) Blood hemoglobin A1C (08/08/2014 8:37 AM CDT) [facility] Hgb A1C 7.7(H) 4.0 - 6.0 % HISTORICAL RESULTS Comment: Hemoglobin A1c ADA Interpretive Guidelines: ?<7% ?? Glycemia controlled ?>8% ?? Hyperglycemia, additional action recommended ?Jerilyn Immunochemical Method Blood specimen (specimen) 08/08/2014 8:37 AM CDT Narrative HISTORICAL RESULTS - 08/08/2014 11:35 AM CDT Test performed at [facility], [address] [place] [address], [place], [id number]. [place] Historical Provider LAB BLOOD ORDERABLES Bárbara l Result HISTORICAL RESULTS * DISCHARGE LABORATORY CUMULATIVE REPORT (08/08/2014) Narrative 08/08/2014 Ordered by an unspecified provider. us Historical Provider LAB BLOOD ORDERABLES Bárbara l Result documented in this encounter Visit Diagnoses Diagnosis Type 2 or unspecified type diabetes mellitus, uncontrolled documented in this encounter Care Teams Line Technician Relationship Specialty Start Date End Date Jarrell Garrison MD PCP - General 01/25/11 09/25/15 documented as of this encounter
--- OUTSIDE RECORDS SUMMARY | 2024-05-26 13:03 | XMS_ITS | Encounter Summary ---
Author Organization [facility] Healthcare Address [address] [place] [address] Care Team Providers Care Software Intern Name Role Phone Jarrell Garrison MD Primary Care Provider +1 [phone] Encounter Details Date Type Department Care Team (Late st Contact Info) Description 05/22/2013 3:01 PM INDUSTRIAL RELATIONS COMMISSIONER - 05/22/2013 6:31 PM [facility] Hospital Encounter CH CLINCONV Nelson Asher MD [address] [id number] Pneumonia due to infectious organism; Hypopotassemia; Essential hypertension; Esophageal reflux; Type 2 or unspecified type diabetes mellitus; Disorder of bladder; Irritable colon; Glaucoma; Sleep apnea; Herpes zoster; Convulsions (HCC); Personal history of transient ischemic attack (TIA) and cerebral infarction without residual deficit Social History Tobacco Use Types Packs/Day Years Used Date Smoking Tobacco: Never Alcohol Use Standard Drinks/Week Comments No 0 (1 standard drink = 0.6 oz pur e alcohol) Comments Unknown Sex and Gender Information Value Date Recorded Sex Assigned at Not on file Legal Sex Female 6:56 PM INDUSTRIAL RELATIONS COMMISSIONER Gender Identity Not on file Sexual Orientation [...] Procedure Name Priority Date/Time Associated Diagnosis Comments CHEST RADIOGRAPHY, FRONTAL (AP), LATERAL Routine 05/22/2013 4:55 PM INDUSTRIAL RELATIONS COMMISSIONER PLASMA TROPONIN I Routine 05/22/2013 10: 14 AM INDUSTRIAL RELATIONS COMMISSIONER PLASMA PROTHROMBIN TIME (PT) Routine 05/22/2013 10:14 AM INDUSTRIAL RELATIONS COMMISSIONER PLASMA PARTIAL THROMBOPLASTIN TIME (PTT) Routine 05/22/2013 10:14 AM INDUSTRIAL RELATIONS COMMISSIONER PLASMA COMPREHENSIVE METABOLIC PANEL Routine 05/22/2013 10:14 AM INDUSTRIAL RELATIONS COMMISSIONER NASOPHARYNGEAL MUCUS INFLUENZA A, B AG Routine 05/22/2013 10:14 AM INDUSTRIAL RELATIONS COMMISSIONER BLOOD LACTIC ACID Routine 05/22/2013 10: 14 AM INDUSTRIAL RELATIONS COMMISSIONER BLOOD D-DIMER Routine 05/22/2013 10:14 AM INDUSTRIAL RELATIONS COMMISSIONER BLOOD CELL COUNT (CBC), MORPHOLOGIC EXAM Routine 05/22/2013 10:14 AM INDUSTRIAL RELATIONS COMMISSIONER BLOOD B-TYPE NATRIURETIC PEPTIDE (BNP) Routine 05/22/2013 10:14 AM INDUSTRIAL RELATIONS COMMISSIONER ELECTROCARDIOGRAPHY (ECG) 05/22/2013 BLOOD MICROBIOLOGY Routine 05/22/2013 12 :00 AM INDUSTRIAL RELATIONS COMMISSIONER DISCHARGE LABORATORY CUMULATIVE REPORT 05/22/2013 documented in this encounter Results * CHEST RADIOGRAPHY, FRONTAL (AP), LATERAL (05/22/2013 4:55 PM INDUSTRIAL RELATIONS COMMISSIONER) Anatomical Region Laterality Modality N/A Radiographic Mireya ging 05/22/2013 4:55 PM INDUSTRIAL RELATIONS COMMISSIONER Narrative 05/23/2013 2:27 PM INDUSTRIAL RELATIONS COMMISSIONER DATE OF EXAM: ??May ??2013 ??4:55PM Acc#: ??[id number] ??[id number] - XR Chest 2 Views ?? DIAGNOSIS: ??COUGH, ELEVATED TEMP CLINICAL HISTORY: ?? Cough_Cough RESULT: \ CHEST TWO VIEWS CLINICAL HISTORY: ??Cough and congestion. Frontal and lateral views of the chest were obtained. Compared to 02/03/13. Heart size and pulmonary vasculature are normal. There is no definite infiltrate or effusion. ??Subtle opacities at the right cardiophrenic angle are probably related to overlying vasculature and these are similar to prior. IMPRESSION: ?\ NO NEW INFILTRATE. ATTENDANT CHILD ACTIVITY: ??JL6 TRANSCRIBE DATE/TIME: ??May ??5 2013 12:48P RADIOLOGIST: ??PAMELA ESQUEDA M.D. ??READ ON: ??May ??5 2013 12:00P ORDERING DR: ILIANA ROPER PA-C THIS DOCUMENT HAS BEEN ELECTRONICALLY SIGNED BY: ??PAMELA ESQUEDA M.D. ??ON: ??May ??5 2013 ??2:27P Procedure Note Provider, MD Desiree - 09/11/2016 DATE OF EXAM: May 22 2013 4:55PM Acc#: [id number] - XR Chest 2 Views DIAGNOSIS: COUGH, ELEVATED TEMP CLINICAL HISTORY: Cough_Cough RESULT: \ CHEST TWO VIEWS CLINICAL HISTORY: Cough and congestion. Frontal and lateral views of the chest were obtained. Compared to 02/03/13. Heart size and pulmonary vasculature are normal. There is no definite infiltrate or effusion. Subtle opacities at the right cardiophrenic angle are probably related to overlying vasculature and these are similar to prior. IMPRESSION: \ NO NEW INFILTRATE. ATTENDANT CHILD ACTIVITY: MOI TRANSCRIBE DATE/TIME: May 23 2013 12:48P RADIOLOGIST: PAMELA ESQUEDA M.D. READ ON: May 23 2013 12:00P ORDERING DR: ILIANA ROPER PA-C THIS DOCUMENT HAS BEEN ELECTRONICALLY SIGNED BY: PAMELA ESQUEDA M.D. ON: May 23 2013 2:27P Historical Provider IMAudrey XR PROCEDURES Final R esult * Blood D-dimer (05/22/2013 10:14 AM INDUSTRIAL RELATIONS COMMISSIONER) [facility] D-dimer 0.3 0.0 - 0.5 mcg/ml FEU HISTORICAL RESULTS Comment: The D-Dimer result should not be used as the sole indicator to rule in or exclude a diagnosis of Pulmonary Embolism or Deep Vein Thrombosis. Blood specimen (specimen) 05/22/2013 10:14 AM INDUSTRIAL RELATIONS COMMISSIONER Narrative HISTORICAL RESULTS - 05/22/2013 10:49 AM INDUSTRIAL RELATIONS COMMISSIONER Test performed at [address], [facility]. [place] LAB BLOOD ORDERABLES nal Result Performing Organization Address [facility] de Phone Number HISTORICAL RESULTS * Plasma prothrombin time (PT) (05/22/2013 10:14 AM INDUSTRIAL RELATIONS COMMISSIONER) [facility] Prothrombin time (PT) 13.0 11.5 - 15.5 seconds HISTORICAL RESULTS INR 0.99 0.81 - 1.21 HISTORIC AL RESULTS Plasma 05/22/2013 10:1 4 AM INDUSTRIAL RELATIONS COMMISSIONER Narrative HISTORICAL RESULTS - 05/22/2013 10:57 AM INDUSTRIAL RELATIONS COMMISSIONER Test performed at [address], [facility]. [place] LAB BLOOD ORDERABLES Fi nal Result Performing Organization Address [facility] Co de Phone Number HISTORICAL RESULTS * Plasma partial thromboplastin time (PTT) (05/22/2013 10:14 AM INDUSTRIAL RELATIONS COMMISSIONER) [facility] APTT 25.1 21.5 - 39.0 seconds HISTORICAL RESULTS Plasma 05/22/2013 10:1 4 AM INDUSTRIAL RELATIONS COMMISSIONER Narrative HISTORICAL RESULTS - 05/22/2013 10:57 AM INDUSTRIAL RELATIONS COMMISSIONER Test performed at [address], [facility]. [place] LAB BLOOD ORDERABLES Fi nal Result Performing Organization Address [facility] Co de Phone Number HISTORICAL RESULTS * Blood B-type natriuretic peptide (BNP) (05/22/2013 10:14 AM INDUSTRIAL RELATIONS COMMISSIONER) [facility] BNP 31 0 - 100 pg/ml HISTORICAL RESULTS Blood specimen (specimen) 05/22/2013 10:14 AM INDUSTRIAL RELATIONS COMMISSIONER Narrative HISTORICAL RESULTS - 05/22/2013 10:55 AM INDUSTRIAL RELATIONS COMMISSIONER Test performed at [address], [facility]. [place] LAB BLOOD ORDERABLES Fi nal Result Performing Organization Address [facility] Co de Phone Number HISTORICAL RESULTS * Plasma troponin I (05/22/2013 10:14 AM INDUSTRIAL RELATIONS COMMISSIONER) [facility] Troponin I 0.01 0.00 - 0.14 ng/ml HISTORICAL RESULTS Comment: Troponin Reference Ranges: Normal: ?0.00 - 0.14 ng/mL Indeterminate: ?0.15 - 0.50 ng/mL PR / Cardiac Muscle Damage: ?>0.50 ng/mL Plasma 05/22/2013 10:1 4 AM INDUSTRIAL RELATIONS COMMISSIONER Narrative HISTORICAL RESULTS - 05/22/2013 10:53 AM INDUSTRIAL RELATIONS COMMISSIONER Test performed at [facility], [address] [place] [address], [id number]. [place] LAB BLOOD ORDERABLES Fi nal Result Performing Organization Address [facility] Co de Phone Number HISTORICAL RESULTS * Blood lactic acid (05/22/2013 10:14 AM INDUSTRIAL RELATIONS COMMISSIONER) [facility] Lactic acid 1.0 0.5 - 2.2 mmol/L HISTORICAL RESULTS Blood specimen (specimen) 05/22/2013 10:14 AM INDUSTRIAL RELATIONS COMMISSIONER Narrative HISTORICAL RESULTS - 05/22/2013 10:27 AM INDUSTRIAL RELATIONS COMMISSIONER Test performed at [address], [facility]. [place] LAB BLOOD ORDERABLES Fi nal Result Performing Organization Address [facility] de Phone Number HISTORICAL RESULTS * (ABNORMAL) Plasma comprehensive metabolic panel (05/22/2013 10:14 AM INDUSTRIAL RELATIONS COMMISSIONER) [facility] Sodium 135 135 - 145 mmol/L HISTORICAL RESULTS K, pl 3.2(L) 3.5 - 5.1 mmol/L HISTORICAL RESULTS Chloride 99(L) 100 - 114 mmol/L HISTORICAL RESULTS CO2 26 22 - 32 mmol/L HISTORICAL RESULTS BUN 35(H) 10 - 26 mg/dl HISTORICAL RESULTS Glucose 120 70 - 199 mg/dl HISTORICAL RESULTS A. gap 13 8 - 16 mmol/L HISTORICAL RESULTS Creatinine 1.50(H) 0.60 - 1.30 mg/dl HISTORICAL RESULTS Calcium 10.0 8.4 - 10.5 mg/dl HISTORICAL RESULTS AST 21 7 - 40 Units/L HISTORICAL RESULTS ALT 24 1 - 45 Units/L HISTORICAL RESULTS Alk phos 84 30 - 110 Units/L HISTORICAL RESULTS Bilirubin 0.72 0.10 - 1.30 mg/dl HISTORICAL RESULTS Protein, pl 7.0 6.2 - 8.4 g/dl HISTORICAL RESULTS Alb 3.6 3.2 - 4.8 g/dl HISTORICAL RESULTS Globulin 3.4 2.0 - 4.3 g/dl HISTORICAL RESULTS eGFR 34 90 - 200 ml/min/1.7 3 m2 HISTORICAL RESULTS Comment: If this individual is -[place], multiply result by 1.21 Repeated results of less than 60 is indicative of chronic kidney disease. MDRD formula has not been validated on individuals greater than 70 years old. Plasma 05/22/2013 10:1 4 AM INDUSTRIAL RELATIONS COMMISSIONER Narrative HISTORICAL RESULTS - 05/22/2013 10:48 AM INDUSTRIAL RELATIONS COMMISSIONER Test performed at [facility], [address] [place] [address], [facility]. [facility] LAB BLOOD ORDERABLES Fi nal Result Performing Organization Address [facility] de Phone Number HISTORICAL RESULTS * Nasopharyngeal mucus Influenza A, B ag (05/22/2013 10:14 AM INDUSTRIAL RELATIONS COMMISSIONER) Pathologist [facility] Influ A ag, nasopharyngeal Negative Negative HISTORICAL RESULTS Comment:This test has an est imated 70% sensitivity and 90% specificity. Influ B ag, nasopharyngeal Negative Negative HISTORICAL RESULTS Comment:This test has an est imated 70% sensitivity and 90% specificity. Nasopharynx swab 05/22/2013 10:14 AM INDUSTRIAL RELATIONS COMMISSIONER Narrative HISTORICAL RESULTS - 05/22/2013 11:03 AM INDUSTRIAL RELATIONS COMMISSIONER Test performed at [facility], [address] [place] [address], [id number]. [facility] LAB BLOOD ORDERABLES Fi nal Result Performing Organization Address [facility] de Phone Number HISTORICAL RESULTS * (ABNORMAL) Blood cell count (CBC), morphologic exam (05/22/2013 10:14 AM INDUSTRIAL RELATIONS COMMISSIONER) WBC 13.4(H) 5.0 - 10.0 K/cumm HISTORICAL RESULTS RBC 4.17(L) 4.20 - 5.20 M/cumm HISTORICAL RESULTS Hgb 12.7 12.0 - 15.0 g/dl HISTORICAL RESULTS Hct 36.2(L) 37.0 - 47.0 % HISTORICAL RESULTS MCV 86.8 82.0 - 96.0 fl HISTORICAL RESULTS MCH 30.5 27.0 - 32.0 pg HISTORICAL RESULTS MCHC 35.1(H) 29.0 - 35.0 g/dl HISTORICAL RESULTS Platelets 372 150 - 450 K/cumm HISTORICAL RESULTS RDW 40.9 36.4 - 46.3 fl HISTORICAL RESULTS Rdw 12.9 11.5 - 14.5 % HISTORICAL RESULTS MPV 10.8 8.6 - 12.6 fl HISTORICAL RESULTS Neutrophils 77.9 42.0 - 85.0 % HISTORICAL RESULTS Neutrophils, abs 10.4(H) 2.1 - 8.5 K/cumm HISTORICAL RESULTS Lymphocytes 10.4(L) 16.0 - 52.0 % HISTORICAL RESULTS Lymphocytes, abs 1.4 0.8 - 5.2 K/cumm HISTORICAL RESULTS Monos 10.4 1.0 - 13.0 % HISTORICAL RESULTS Monocytes, absolute 1.4(H) 0.0 - 1.3 K/cumm HISTORICAL RESULTS Eosinophils 0.7 0.0 - 7.0 % HISTORICAL RESULTS Eosinophils, abs 0.1 0.0 - 0.7 K/cumm HISTORICAL RESULTS Basophils 0.1 0.0 - 4.0 % HISTORICAL RESULTS Basophils, abs 0.0 0.0 - 0.4 K/cumm HISTORICAL RESULTS Young granulocytes, % 0.5 0.0 - 1.0 % HISTORICAL RESULTS Young granulocyte 0.07 0.00 - 0.10 K/cumm HISTORICAL RESULTS NRBC 0.0 0.0 - 0.2 #/100 WBC HISTORICAL RESULTS NRBC, abs 0.00 0.00 - 0.01 K/cumm HISTORICAL RESULTS Blood specimen (specimen) 05/22/2013 10:14 AM INDUSTRIAL RELATIONS COMMISSIONER Narrative HISTORICAL RESULTS - 05/22/2013 10:35 AM INDUSTRIAL RELATIONS COMMISSIONER Test performed at [facility], [address] [place] [address], [facility], [facility]. [place] LAB BLOOD ORDERABLES Fi nal Result HISTORICAL RESULTS * DISCHARGE LABORATORY CUMULATIVE REPORT (05/22/2013) Narrative 05/22/2013 Ordered by an unspecified provider. us Historical Provider LAB BLOOD ORDERABLES Bárbara l Result * Blood Microbiology (05/22/2013 12:00 AM INDUSTRIAL RELATIONS COMMISSIONER) 05/22/2013 Narrative HISTORICAL RESULTS - 05/28/2013 11:52 AM [facility] ?Patient Name: ?LOC ANDERSON ?Med. Rec#: ?? [id number] ?Pt. Acct.#: ??[id number] ?Birthdate: ?? 1940 ?Age / Sex: ?? 72Y / F ?Location: ?DISCH (Emergenc ?Admit Date: ??05/22/2013 ?Discharge Date: ? 05/22/2013 ?Doctor: ?Lb, Nelson Sanderson ?Patient Type: ?NW Emergency Room Culture, Blood ? Collected: 05/22/2013 17:18 Specimen: Blood ?? Specimen Source: Blood, NOS Status: Final ??Last Update: 05/22/2013 20:00 Culture Result ?? No Growth Culture, Blood ? Collected: 05/22/2013 16:14 Specimen: Blood ?? Specimen Source: Blood, NOS Status: Final ??Last Update: 05/22/2013 20:00 Culture Result ?? No Growth Historical Provider LAB MICROBIOLOGY - GENERA L ORDERABLES Final Result HISTORICAL RESULTS * ELECTROCARDIOGRAPHY (ECG) (05/22/2013) Narrative 05/22/2013 Ordered by an unspecified provider. us Historical Provider ECG ORDERABLES Final Res ult documented in this encounter Visit Diagnoses Diagnosis Pneumonia due to infectious organism Hypopotassemia Essential hypertension Unspecified essential hypertension Esophageal reflux Type 2 or unspecified type diabetes mellitus Disorder of bladder Unspecified disorder of bladder Irritable colon Glaucoma Unspecified glaucoma Sleep apnea Unspecified sleep apnea Herpes zoster Herpes zoster without mention of complication Convulsions (HCC) Other convulsions Personal history of transient ischemic attack (TIA) and cerebral infarction without residual deficit documented in this encounter Care Teams Software Intern Relationship Specialty Start Date End Date Jarrell Garrison MD PCP - General 01/25/11 09/25/15 documented as of this encounter
--- OUTSIDE RECORDS SUMMARY | 2024-05-26 13:03 | XMS_ITS | Encounter Summary ---
Author Organization [facility] Healthcare Address [address] [place] [address] Care Team Providers Care Diesel Service Technician Name Role Phone Jarrell Garrison MD Primary Care Provider +1 -[phone] Encounter Details Date Type Department Care Team (Late st Contact Info) Description 01/02/2011 12:01 AM CDT - 01/02/2011 11:59 PM CDT Hospital Encounter CH CLINCONV [facility] Other screening mammogram Social History Tobacco Use Types Packs/Day Years Used Date Smoking Tobacco: Never Assessed Comments Unknown Sex and Gender Information Value Date Recorded Sex Assigned at Not on file Legal Sex Female 6:56 PM PHONE SCREENER Gender Identity Not on file Sexual Orientation [...] of this encounter Visit Diagnoses Diagnosis Other screening mammogram documented in this encounter Care Teams Diesel Service Technician Relationship Specialty Start Date End Date Jarrell Garrison MD PCP - General 10/29/07 01/24/11 documented as of this encounter
--- OUTSIDE RECORDS SUMMARY | 2024-05-26 13:03 | XMS_ITS | Encounter Summary ---
Author Organization [facility] Healthcare Address [address] [place] [address] Care Team Providers Care Detective Supervisor Name Role Phone Jarrell Garrison MD Primary Care Provider +1 -[phone] Encounter Details Date Type Department Care Team (Late st Contact Info) Description 08/09/2013 9:13 AM CDT - 08/09/2013 11:59 PM CDT Hospital Encounter CH CLINCONV Yuliya Ibarra MD [address] [place] [address] Type 2 or unspecified type diabetes mellitus, uncontrolled Social History Tobacco Use Types Packs/Day Years Used Date Smoking Tobacco: Never Alcohol Use Standard Drinks/Week Comments No 0 (1 standard drink = 0.6 oz pur e alcohol) Comments Unknown Sex and Gender Information Value Date Recorded Sex Assigned at Not on file Legal Sex Female 6:56 PM MANAGER SCHOOL Gender Identity Not on file Sexual Orientation [...] Name Priority Date/Time Associated Diagnosis Comments PLASMA LIPID PANEL Routine 08/09/2013 4: 20 AM CDT BLOOD HEMOGLOBIN A1C Routine 08/09/2013 4:20 AM CDT DISCHARGE LABORATORY CUMULATIVE REPORT 08/09/2013 documented in this encounter Results * (ABNORMAL) Plasma lipid panel (08/09/2013 4:20 AM CDT) Pathologist [facility] Cholesterol 101 100 - 200 mg/dl HISTORICAL RESULTS Triglycerides 132 10 - 150 mg/dl HISTORICAL RESULTS HDL 33(L) 40 - 59 mg/dl HISTORICAL RESULTS LDL 42(L) 60 - 129 mg/dl HISTORICAL RESULTS Plasma 08/09/2013 4:20 AM CDT Narrative HISTORICAL RESULTS - 08/09/2013 6:13 AM CDT Test performed at [facility], [address] [place] [address], [facility], [id number]. [place] Historical Provider LAB BLOOD ORDERABLES Bárbara mcdaniel Result HISTORICAL RESULTS * (ABNORMAL) Blood hemoglobin A1C (08/09/2013 4:20 AM CDT) Pathologist [facility] Hgb A1C 6.5(H) 4.0 - 6.0 % HISTORICAL RESULTS Comment: Hemoglobin A1c ADA Interpretive Guidelines: ?<7% ?? Glycemia controlled ?>8% ?? Hyperglycemia, additional action recommended ?Jerilyn Immunochemical Method Blood specimen (specimen) 08/09/2013 4:20 AM CDT Narrative HISTORICAL RESULTS - 08/09/2013 7:10 AM CDT Test performed at [facility], [address] [place] [address], [facility]. Historical Provider LAB BLOOD ORDERABLES Bárbara l Result HISTORICAL RESULTS * DISCHARGE LABORATORY CUMULATIVE REPORT (08/09/2013) Narrative 08/09/2013 Ordered by an unspecified provider. Historical Provider LAB BLOOD ORDERABLES Bárbara l Result documented in this encounter Visit Diagnoses Diagnosis Type 2 or unspecified type diabetes mellitus, uncontrolled documented in this encounter Care Teams Detective Supervisor Relationship Specialty Start Date End Date Jarrell Garrison MD PCP - General 01/25/11 09/25/15 documented as of this encounter
--- OUTSIDE RECORDS SUMMARY | 2024-05-26 13:03 | XMS_ITS | Encounter Summary ---
Author Organization [facility] Healthcare Address [address] [place] [address] Care Team Providers Care Brass Wind Instruments Tube Bender Name Role Phone Jarrell Garrison MD Primary Care Provider +1 -[phone] Encounter Details Date Type Department Care Team (Late st Contact Info) Description 10/19/2012 10:48 AM CDT - 10/19/2012 11:59 PM CDT Hospital Encounter [facility] Courtney Flores Nontoxic multinodular goiter Social History Tobacco Use Types Packs/Day Years Used Date Smoking Tobacco: Never Assessed Comments Unknown Sex and Gender Information Value Date Recorded Sex Assigned at Not on file Legal Sex Female 6:56 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 DIAGNOSIS: ??NONTOXIC UNINOD GOITER CLINICAL HISTORY: ?? THYROID NODULES ?? RESULT: \ THYROID ULTRASOUND: HISTORY: ??thyroid cysts. Compared to 04/15/2012. Right thyroid lobe measures 5.1 cm x 1.9 cm x 1.5 cm. Left thyroid lobe measures 4.3 cm x 1.5 cm x 1.6 cm. Heterogeneous appearance of the thyroid parenchyma overall is noted. Multiple cysts are noted involving the thyroid gland bilaterally with the largest measuring up to 0.6 cm in diameter bilaterally. There are no suspicious cysts. There are no dominant nodule or suspicious mass lesions. The thyroid isthmus measures up to 0.2 cm anteroposteriorly. IMPRESSION: ?\ HETEROGENEITY OF THE THYROID GLAND PRESUMABLY RELATED TO GOITER. THERE ARE NO SUSPICIOUS FINDINGS. THERE IS NO SIGNIFICANT CHANGE. GENERAL INSPECTOR: ??LB3 TRANSCRIBE DATE/TIME: ??Steve ??2012 ??4:32P RADIOLOGIST: ??PAMELA ESQUEDA M.D. ??READ ON: ??Oct ??2012 ??4:23P ORDERING DR: COURTNEY FLORES ?? THIS DOCUMENT HAS BEEN ELECTRONICALLY SIGNED BY: ??PAMELA ESQUEDA M.D. ??ON: ??Steve ??2012 ??4:51P Procedure Note Provider, Desiree, - 09/11/2016 DATE OF EXAM: Oct 19 2012 12:01PM Acc#: [id number] [id number] - US Thyroid DIAGNOSIS: NONTOXIC UNINOD GOITER CLINICAL HISTORY: THYROID NODULES RESULT: \ THYROID ULTRASOUND: HISTORY: thyroid cysts. Compared to 04/15/2012. Right thyroid lobe measures 5.1 cm x 1.9 cm x 1.5 cm. Left thyroid lobe measures 4.3 cm x 1.5 cm x 1.6 cm. Heterogeneous appearance of the thyroid parenchyma overall is noted. Multiple cysts are noted involving the thyroid gland bilaterally with the largest measuring up to 0.6 cm in diameter bilaterally. There are no suspicious cysts. There are no dominant nodule or suspicious mass lesions. The thyroid isthmus measures up to 0.2 cm anteroposteriorly. IMPRESSION: \ HETEROGENEITY OF THE THYROID GLAND PRESUMABLY RELATED TO GOITER. THERE ARE NO SUSPICIOUS FINDINGS. THERE IS NO SIGNIFICANT CHANGE. GENERAL INSPECTOR: LB3 TRANSCRIBE DATE/TIME: Oct 19 2012 4:32P RADIOLOGIST: PAMELA ESQUEDA M.D. READ ON: Oct 19 2012 4:23P ORDERING DR: COURTNEY FLORES THIS DOCUMENT HAS BEEN ELECTRONICALLY SIGNED BY: PAMELA ESQUEDA M.D. ON: Oct 19 2012 4:51P us Historical Provider MD GOMES US PROCEDURES Final R esult documented in this encounter Visit Diagnoses Diagnosis Nontoxic multinodular goiter documented in this encounter Care Teams Brass Wind Instruments Tube Bender Relationship Specialty Start Date End Date Jarrell Garrison MD PCP - General 01/25/11 09/25/15 documented as of this encounter
--- OUTSIDE RECORDS SUMMARY | 2024-05-26 13:03 | XMS_ITS | Encounter Summary ---
Author Organization [facility] Healthcare Address [address] [place] [address] Care Team Providers Care Supervisor Melt House Name Role Phone Jarrell Garrison MD Primary Care Provider +1 -[phone] Encounter Details Date Type Department Care Team (Latest Contact Info) Description 03/10/2015 11:29 AM CDT - 03/10/2015 11:59 PM CDT Hospital Encounter [facility] Yuliya Ibarra MD [address] [place] [address] Type 2 diabetes mellitus with hyperglycemia (CMS/HCC); Hypercalcemia Social History Tobacco Use Types Packs/Day Years Used Date Smoking Tobacco: Never Alcohol Use Standard Drinks/Week Comments No 0 (1 standard drink = 0.6 oz pur e alcohol) Comments Unknown Sex and Gender Information Value Date Recorded Sex Assigned at Not on file Legal Sex Female 6:56 PM CLEANERS Gender Identity Not on file Sexual Orientation [...] Name Priority Date/Time Associated Diagnosis Comments SERUM PARATHYROID HORMONE (PTH), INTACT Routine 03/10/2015 6:35 AM CDT PLASMA THYROID-STIMULATING HORMONE (TSH) Routine 03/10/2015 6:35 AM CDT PLASMA BASIC METABOLIC PANEL Routine 03/10/2015 6:35 AM CDT BLOOD HEMOGLOBIN A1C Routine 03/10/2015 6:35 AM CDT DISCHARGE LABORATORY CUMULATIVE REPORT 03/10/2015 documented in this encounter Results * (ABNORMAL) Blood hemoglobin A1C (03/10/2015 6:35 AM CDT) Hgb A1C 7.7(H) 4.0 - 6.0 % HISTORICAL RESULTS Comment: Hemoglobin A1c ADA Interpretive Guidelines: ?<7% ?? Glycemia controlled ?>8% ?? Hyperglycemia, additional action recommended ?Jerilyn Immunochemical Method Blood specimen (specimen) 03/10/2015 6:35 AM CDT Narrative HISTORICAL RESULTS - 03/10/2015 8:38 AM CDT CC TO DR. LEWIS / [phone] Test performed at [address], [facility]. Historical Provider LAB BLOOD ORDERABLES Bárbara [email or web address] Result HISTORICAL RESULTS * Plasma basic metabolic panel (03/10/2015 6:35 AM CDT) Sodium 140 135 - 145 mmol/L HISTORICAL RESULTS K, pl 4.0 3.5 - 5.1 mmol/L HISTORICAL RESULTS Chloride 106 100 - 114 mmol/L HISTORICAL RESULTS CO2 29 22 - 32 mmol/L HISTORICAL RESULTS BUN 21 10 - 26 mg/dl HISTORICAL RESULTS Glucose 158 70 - 199 mg/dl HISTORICAL RESULTS A. gap 9 8 - 16 mmol/L HISTORICAL RESULTS Creatinine 0.92 0.60 - 1.30 mg/dl HISTORICAL RESULTS Calcium 10.3 8.4 - 10.5 mg/dl HISTORICAL RESULTS eGFR 59 90 - 200 ml/min/1.7 3 m2 HISTORICAL RESULTS Comment: If this individual is -Cypriot, multiply result by 1.21 Repeated results of less than 60 is indicative of chronic kidney disease. MDRD formula has not been validated on individuals greater than 70 years old. Plasma 03/10/2015 6:35 AM CDT Narrative HISTORICAL RESULTS - 03/10/2015 8:10 AM CDT CC TO DR. LEWIS / [phone] Test performed at [address], [address]. Historical Provider LAB BLOOD ORDERABLES Bárbara l Result Performing Organization Address [facility] de Phone Number HISTORICAL RESULTS * Plasma thyroid-stimulating hormone (TSH) (03/10/2015 6:35 AM CDT) TSH 4.03 0.34 - 5.60 mcIUnits/ml HISTORICAL RESULTS Plasma 03/10/2015 6:35 AM CDT Narrative HISTORICAL RESULTS - 03/10/2015 8:34 AM CDT CC TO DR. LEWIS / [phone] Test performed at [address], [facility]. Result [facility] Historical Provider LAB BLOOD ORDERABLES Bárbara l Result Performing Organization Address [facility] de Phone Number HISTORICAL RESULTS * (ABNORMAL) Serum parathyroid hormone (PTH), intact (03/10/2015 6:35 AM CDT) PTH, intact 99(H) 12 - 65 pg/ml HISTORICAL RESULTS Comment: In the presence of normal renal function and hypercalcemia, a PTH level of >65 pg/ml is highly suggestive of primary hyperparathyroidism. Serum 03/10/2015 6:35 AM CDT Narrative HISTORICAL RESULTS - 03/10/2015 11:12 AM CDT CC TO DR. LEWIS / [phone] Historical Provider LAB BLOOD ORDERABLES Bárbara l Result Performing Organization Address [facility] Co de Phone Number HISTORICAL RESULTS * DISCHARGE LABORATORY CUMULATIVE REPORT (03/10/2015) Narrative 03/10/2015 Ordered by an unspecified provider. Historical Provider LAB BLOOD ORDERABLES Bárbara l Result documented in this encounter Visit Diagnoses Diagnosis Type 2 diabetes mellitus with hyperglycemia (CMS/HCC) (HCC) Hypercalcemia documented in this encounter Care Teams Supervisor Melt House Relationship Specialty Start Date End Date Jarrell Garrison MD PCP - General 01/25/11 09/25/15 documented as of this encounter
--- OUTSIDE RECORDS SUMMARY | 2024-05-26 13:03 | XMS_ITS | Encounter Summary ---
Author Organization [facility] Healthcare Address [address] [place] [address] Care Team Providers Care Program Support Assistant Name Role Phone Jarrell Garrison MD Primary Care Provider +1 -[phone] Encounter Details Date Type Department Care Team (Late st Contact Info) Description 05/25/2013 2:53 PM LAUNCH MANAGER - 05/25/2013 11:59 PM LAUNCH MANAGER Hospital [place] [address] [facility] [address] [place] [address] Pneumonia due to infectious organism Social History Tobacco Use Types Packs/Day Years Used Date Smoking Tobacco: Never Alcohol Use Standard Drinks/Week Comments No 0 (1 standard drink = 0.6 oz pur e alcohol) Comments Unknown Sex and Gender Information Value Date Recorded Sex Assigned at Not on file Legal Sex Female 6:56 PM LAUNCH MANAGER Gender Identity Not on file Sexual [...] as of this encounter Visit Diagnoses Diagnosis Pneumonia due to infectious organism documented in this encounter Care Teams Program Support Assistant Relationship Specialty Start Date End Date Jarrell Garrison MD PCP - General 01/25/11 09/25/15 documented as of this encounter
--- OUTSIDE RECORDS SUMMARY | 2024-05-26 13:03 | XMS_ITS | Encounter Summary ---
Author Organization [facility] Healthcare Address [address] [place] [address] Care Team Providers Care Oil Field Operator Name Role Phone Jarrell Garrison MD Primary Care Provider +1 -[phone] Encounter Details Date Type Department Care Team (Late st Contact Info) Description 10/03/2010 10:13 AM CDT - 10/03/2010 11:59 PM CDT Hospital Encounter [facility] Pure hypercholesterolemia; Hypertensive heart disease without congestive heart failure Social History Tobacco Use Types Packs/Day Years Used Date Smoking Tobacco: Never Assessed Comments Unknown Sex and Gender Information Value Date Recorded Sex Assigned at Not on file Legal Sex Female 6:56 PM 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
--- OUTSIDE RECORDS SUMMARY | 2024-05-26 13:03 | XMS_ITS | Encounter Summary ---
Author Organization [facility] Healthcare Address [address] [place] [address] Care Team Providers Care Glass Technologist Name Role Phone Jarrell Garrison MD Primary Care Provider +1 -[phone] Encounter Details Date Type Department Care Team (Late st Contact Info) Description 08/31/2010 1:42 PM CDT - 08/31/2010 11:59 PM CDT Hospital Encounter [facility] Laz Valencia MD [address] [place], [place] [id number] Pre-operative examination; Other nonspecific abnormal cardiovascular system function study Social History Tobacco Use Types Packs/Day Years Used Date Smoking Tobacco: Never Assessed Comments Unknown Sex and Gender Information Value Date Recorded Sex Assigned at Not on file Legal Sex Female 6:56 PM BELL CLERK Gender Identity Not on file Sexual [...] as of this encounter Visit Diagnoses Diagnosis Pre-operative examination Unspecified pre-operative examination Other nonspecific abnormal cardiovascular system function study documented in this encounter Care Teams Glass Technologist Relationship Specialty Start Date End Date Jarrell Garrison MD PCP - General 10/29/07 01/24/11 documented as of this encounter
--- OUTSIDE RECORDS SUMMARY | 2024-05-26 13:04 | XMS_ITS | Encounter Summary ---
Author Organization [facility] Healthcare Address [address] [place] [address] Care Team Providers Care Take Up Supervisor Name Role Phone Jarrell Garrison MD Primary Care Provider +1 -[phone] Encounter Details Date Type Department Care Team (Late st Contact Info) Description 10/05/2008 12:01 AM CDT - 10/05/2008 11:59 PM CDT Hospital Encounter [place] [address] [facility] [address] [place] [address] Asthma Social History Tobacco Use Types Packs/Day Years Used Date Smoking Tobacco: Never Assessed Comments Unknown Sex and Gender Information Value Date Recorded Sex Assigned at Not on file Legal Sex Female 6:56 PM FURRIER APPRENTICE Gender Identity Not on file Sexual Orientation Not on file documented as of this encounter Medications at Time of Discharge clopidogrel (PLAVIX) 75 mg tablet TAKE ONE BY MOUTH ONE TIME PER DAY 90 5 01/29/2007 03/08/[address] (NexIUM) 40 mg capsule TAKE 1 CAPSULE DAILY 90 1 01/29/2007 12/21/2020 documented as of this encounter Plan of Treatment Not on file documented as of this encounter Visit Diagnoses Diagnosis Asthma Unspecified asthma documented in this encounter Care Teams Take Up Supervisor Relationship Specialty Start Date End Date Jarrell Garrison MD PCP - General 10/29/07 01/24/11 documented as of this encounter
--- OUTSIDE RECORDS SUMMARY | 2024-05-26 13:04 | XMS_ITS | Encounter Summary ---
Author Organization [facility] Healthcare Address [address] [place] [address] Care Team Providers Care Cardroom Attendant Name Role Phone Jarrell Garrison MD Primary Care Provider +1 -[phone] Encounter Details Date Type Department Care Team (Late st Contact Info) Description 07/24/2009 11:47 AM MARKETING ANALYTICS ANALYST - 07/24/2009 11:59 PM MARKETING ANALYTICS ANALYST Hospital Encounter [facility] Grupo Garcia Headache Social History Tobacco Use Types Packs/Day Years Used Date Smoking Tobacco: Never Assessed Comments Unknown Sex and Gender Information Value Date Recorded Sex Assigned at Not on file Legal Sex Female 6:56 PM MARKETING ANALYTICS ANALYST Gender Identity Not on file Sexual [...] as of this encounter Visit Diagnoses Diagnosis Headache documented in this encounter Care Teams Cardroom Attendant Relationship Specialty Start Date End Date Jarrell Garrison MD PCP - General 10/29/07 01/24/11 documented as of this encounter
--- OUTSIDE RECORDS SUMMARY | 2024-05-26 13:04 | XMS_ITS | Encounter Summary ---
Author Organization [facility] Healthcare Address [address] [place] [address] Care Team Providers Care Sales Vice President Name Role Phone Jarrell Garrison MD Primary Care Provider +1 -[phone] Encounter Details Date Type Department Care Team (Late st Contact Info) Description 06/20/2009 10:14 AM STOCK MANAGER - 06/20/2009 11:59 PM STOCK MANAGER Hospital Encounter [facility] Grupo Garcia Cough Social History Tobacco Use Types Packs/Day Years Used Date Smoking Tobacco: Never Assessed Comments Unknown Sex and Gender Information Value Date Recorded Sex Assigned at Not on file Legal Sex Female 6:56 PM STOCK MANAGER Gender Identity Not on file Sexual Orientation Not on file documented as of this encounter Medications at Time of Discharge clopidogrel (PLAVIX) 75 mg tablet TAKE ONE BY MOUTH ONE TIME PER DAY 90 5 01/29/2007 03/08/[address] (NexIUM) 40 mg capsule TAKE 1 CAPSULE DAILY 90 1 01/29/2007 12/21/2020 rosuvastatin (CRESTOR) 10 mg tablet TAKE 1 TABLET BY MOUTH 1 TIME PER DAY AT BEDTIME 90 5 03/07/2009 12/21/2020 documented as of this encounter Plan of Treatment Not on file documented as of this encounter Visit Diagnoses Diagnosis Cough documented in this encounter Care Teams Sales Vice President Relationship Specialty Start Date End Date Jarrell Garrison MD PCP - General 10/29/07 01/24/11 documented as of this encounter
--- OUTSIDE RECORDS SUMMARY | 2024-05-26 13:04 | XMS_ITS | Encounter Summary ---
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
--- OUTSIDE RECORDS SUMMARY | 2024-05-26 13:04 | XMS_ITS | Encounter Summary ---
Author Organization [facility] Healthcare Address [address] [place] [address] Care Team Providers Care Inspector Pawnshop Detail Name Role Phone Jarrell Garrison MD Primary Care Provider +1 -[phone] Encounter Details Date Type Department Care Team (Late st Contact Info) Description 01/08/2010 2:07 PM CDT - 01/08/2010 11:59 PM CDT Hospital Encounter [facility] Grupo Garcia Essential hypertension Social History Tobacco Use Types Packs/Day Years Used Date Smoking Tobacco: Never Assessed Comments Unknown Sex and Gender Information Value Date Recorded Sex Assigned at Not on file Legal Sex Female 6:56 PM RUBBER 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
--- OUTSIDE RECORDS SUMMARY | 2024-05-26 13:04 | XMS_ITS | Encounter Summary ---
Author Organization [facility] Healthcare Address [address] [place] [address] Care Team Providers Care Bite Block Maker Name Role Phone Jarrell Garrison MD Primary Care Provider +1 -[phone] Encounter Details Date Type Department Care Team (Late st Contact Info) Description 11/22/2009 10:11 AM CDT - 11/22/2009 11:59 PM CDT Hospital Encounter [place] [address] [facility] [address] [place], [place] [id number] Asthma Social History Tobacco Use Types Packs/Day Years Used Date Smoking Tobacco: Never Assessed Comments Unknown Sex and Gender Information Value Date Recorded Sex Assigned at Not on file Legal Sex Female 6:56 PM FABRIC AND ACCESSORIES ESTIMATOR Gender Identity Not on file Sexual Orientation [...] asthma documented in this encounter Care Teams Bite Block Maker Relationship Specialty Start Date End Date Jarrell Garrison MD PCP - General 10/29/07 01/24/11 documented as of this encounter
--- OUTSIDE RECORDS SUMMARY | 2024-05-26 13:04 | XMS_ITS | Encounter Summary ---
Author Organization [facility] Healthcare Address [address] [place] [address] Care Team Providers Care Helper Metal Hanging Name Role Phone Jarrell Garrison MD Primary Care Provider +1 -[phone] Encounter Details Date Type Department Care Team (Late st Contact Info) Description 03/28/2009 11:21 AM LICENSING WORKER - 03/28/2009 11:59 PM LICENSING WORKER Hospital Encounter [facility] Grupo Garcia Cough Social History Tobacco Use Types Packs/Day Years Used Date Smoking Tobacco: Never Assessed Comments Unknown Sex and Gender Information Value Date Recorded Sex Assigned at Not on file Legal Sex Female 6:56 PM LICENSING WORKER Gender Identity Not on file Sexual Orientation [...] Cough documented in this encounter Care Teams Helper Metal Hanging Relationship Specialty Start Date End Date Jarrell Garrison MD PCP - General 10/29/07 01/24/11 documented as of this encounter
--- OUTSIDE RECORDS SUMMARY | 2024-05-26 13:04 | XMS_ITS | Encounter Summary ---
Author Organization [facility] Healthcare Address [address] [place] [address] Care Team Providers Care Senior Civil Engineer Name Role Phone Jarrell Garrison MD Primary Care Provider +1 -[phone] Encounter Details Date Type Department Care Team (Late st Contact Info) Description 11/29/2009 12:01 AM CDT - 11/29/2009 11:59 PM CDT Hospital Encounter [facility] Grupo Garcia Osteoporosis; Other screening mammogram Social History Tobacco Use Types Packs/Day Years Used Date Smoking Tobacco: Never Assessed Comments Unknown Sex and Gender Information Value Date Recorded Sex Assigned at Not on file Legal Sex Female 6:56 PM SIGN MANUFACTURER Gender Identity Not on file Sexual Orientation [...] as of this encounter Visit Diagnoses Diagnosis Osteoporosis Unspecified osteoporosis Other screening mammogram documented in this encounter Care Teams Senior Civil Engineer Relationship Specialty Start Date End Date Jarrell Garrison MD PCP - General 10/29/07 01/24/11 documented as of this encounter
--- OUTSIDE RECORDS SUMMARY | 2024-05-26 13:04 | XMS_ITS | Encounter Summary ---
Author Organization [facility] Healthcare Address [address] [place] [address] Care Team Providers Care Hat Cone Inspector Name Role Phone Jarrell Garrison MD Primary Care Provider +1 -[phone] Encounter Details Date Type Department Care Team (Late st Contact Info) Description 12/27/2009 3:12 PM CDT - 12/27/2009 11:59 PM CDT Hospital En[place] [address] [address] Backache Social History Tobacco Use Types Packs/Day Years Used Date Smoking Tobacco: Never Assessed Comments Unknown Sex and Gender Information Value Date Recorded Sex Assigned at Not on file Legal Sex Female 6:56 PM CAR DISPATCHER Gender Identity Not on file Sexual Orientation [...] as of this encounter Visit Diagnoses Diagnosis Backache Unspecified backache documented in this encounter Care Teams Hat Cone Inspector Relationship Specialty Start Date End Date Jarrell Garrison MD PCP - General 10/29/07 01/24/11 documented as of this encounter
--- OUTSIDE RECORDS SUMMARY | 2024-05-26 13:04 | XMS_ITS | Encounter Summary ---
Author Organization [facility] Healthcare Address [address] [place] [address] Care Team Providers Care Livestock Exhibitor Name Role Phone Jarrell Garrison MD Primary Care Provider +1 -[phone] Encounter Details Date Type Department Care Team (Late st Contact Info) Description 07/04/2009 10:48 AM DIRECTOR LEARNING SERVICES - 07/04/2009 11:59 PM DIRECTOR LEARNING SERVICES Hospital Encounter [facility] CLINCONV Social History Tobacco Use Types Packs/Day Years Used Date Smoking Tobacco: Never Assessed Comments Unknown Sex and Gender Information Value Date Recorded Sex Assigned at Not on file Legal Sex Female 6:56 PM DIRECTOR LEARNING SERVICES Gender Identity Not on file Sexual Orientation [...] on filedocumented in this encounter Care Teams Livestock Exhibitor Relationship Specialty Start Date End Date Jarrell Garrison MD PCP - General 10/29/07 01/24/11 documented as of this encounter
--- OUTSIDE RECORDS SUMMARY | 2024-05-26 13:04 | XMS_ITS | Encounter Summary ---
Author Organization [facility] Healthcare Address [address] [place] [address] Care Team Providers Care Filenet P8 Developer Name Role Phone Unavailable Primary Care Provider Unavailabl e Encounter Details Date Type Department Care Team (Late st Contact Info) Description 07/30/2006 12:01 AM CDT - 07/30/2006 11:59 PM CDT Hospital Encounter [facility] Zachary Lucero MD [address] [place] [address] [address] Social History Tobacco Use Types Packs/Day Years Used Date Smoking Tobacco: Never Assessed Comments Unknown Sex and Gender Information Value Date Recorded Sex Assigned at Not on file Legal Sex Female 6:56 PM RAIL TRACTOR OPERATOR Gender Identity Not on file Sexual Orientation Not on file documented as of this encounter Plan of Treatment Not on file documented as of this encounter Visit Diagnoses Not on filedocumented in this encounter
--- OUTSIDE RECORDS SUMMARY | 2024-05-26 13:04 | XMS_ITS | Encounter Summary ---
Author Organization [facility] Healthcare Address [address] [place] [address] Care Team Providers Care Polysomnographic Tech Name Role Phone Jarrell Garrison MD Primary Care Provider [phone] Encounter Details Date Type Department Care Team (Late st Contact Info) Description 06/14/2009 12:01 AM CAREER COUNSELOR - 06/14/2009 11:59 PM [facility] Hospital En[place] [address] [facility] [address] [place], [place] [id number] Asthma Social History Tobacco Use Types Packs/Day Years Used Date Smoking Tobacco: Never Assessed Comments Unknown Sex and Gender Information Value Date Recorded Sex Assigned at Not on file Legal Sex Female 6:56 PM CAREER COUNSELOR Gender Identity Not on file Sexual [...] asthma documented in this encounter Care Teams Polysomnographic Tech Relationship Specialty Start Date End Date Jarrell Garrison MD PCP - General 10/29/07 01/24/11 documented as of this encounter
--- OUTSIDE RECORDS SUMMARY | 2024-05-26 13:04 | XMS_ITS | Encounter Summary ---
Author Organization [facility] Healthcare Address [address] [place] [address] Care Team Providers Care Ocean Freight Manager Name Role Phone Jarrell Garrison MD Primary Care Provider +1 [phone] Encounter Details Date Type Department Care Team (Late st Contact Info) Description 01/17/2010 8:57 AM CDT - 01/17/2010 3:40 PM CDT Hospital Encounter [place] [address] [address] Other ventral hernia; Essential hypertension; Asthma; Glaucoma Social History Tobacco Use Types Packs/Day Years Used Date Smoking Tobacco: Never Assessed Comments Unknown Sex and Gender Information Value Date Recorded Sex Assigned at Not on file Legal Sex Female 6:56 PM HOSPICE AIDE Gender Identity Not on file Sexual Orientation [...] of this encounter Visit Diagnoses Diagnosis Other ventral hernia Essential hypertension Unspecified essential hypertension Asthma Unspecified asthma Glaucoma Unspecified glaucoma documented in this encounter Care Teams Ocean Freight Manager Relationship Specialty Start Date End Date Jarrell Garrison MD PCP - General 10/29/07 01/24/11 documented as of this encounter
--- OUTSIDE RECORDS SUMMARY | 2024-05-26 13:04 | XMS_ITS | Encounter Summary ---
Author Organization [facility] Healthcare Address [address] [place] [address] Care Team Providers Care Business Affairs Manager Name Role Phone Jarrell Garrison MD Primary Care Provider [phone] Encounter Details Date Type Department Care Team (Late st Contact Info) Description 12/08/2006 3:50 PM CDT - 12/08/2006 11:59 PM CDT Hospital Encounter [facility] CLINCONV Grupo Garcia Social History Tobacco Use Types Packs/Day Years Used Date Smoking Tobacco: Never Assessed Comments Unknown Sex and Gender Information Value Date Recorded Sex Assigned at Not on file Legal Sex Female 6:56 PM SIGNS AND DISPLAYS SALESPERSON Gender Identity Not on file Sexual Orientation Not on file documented as of this encounter Plan of Treatment Not on file documented as of this encounter Visit Diagnoses Not on filedocumented in this encounter Care Teams Business Affairs Manager Relationship Specialty Start Date End Date Jarrell Garrison MD PCP - General 08/26/06 10/28/07 documented as of this encounter
--- OUTSIDE RECORDS SUMMARY | 2024-05-26 13:04 | XMS_ITS | Encounter Summary ---
Author Organization [facility] Healthcare Address [address] [place] [address] Care Team Providers Care Certified Financial Planner Name Role Phone Jarrell Garrison MD Primary Care Provider [phone] [phone] Encounter Details Date Type Department Care Team (Late st Contact Info) Description 08/11/2008 10:00 PM CDT - 08/18/2008 12:13 PM CDT Hospital Encounter [facility] Prosper Barone Cerebral artery occlusion with cerebral infarction (HCC); Primary cerebellar degeneration (CMS/HCC) (HCC); Hereditary spastic paraplegia (CMS/HCC) (HCC); Asthma; Hypertensive heart disease without congestive heart failure; Obstructive sleep apnea; Family history of other neurological disease; Heartburn; Personal history of transient ischemic attack (TIA) and cerebral infarction without residual deficit; Cerebral atherosclerosis; Diaphragmatic hernia; Stricture and stenosis of esophagus Social History Tobacco Use Types Packs/Day Years Used Date Smoking Tobacco: Never Assessed Comments Unknown Sex and Gender Information Value Date Recorded Sex Assigned at Not on file Legal Sex Female 6:56 PM SHOE PACKER Gender Identity Not on file Sexual Orientation [...] as of this encounter Visit Diagnoses Diagnosis Cerebral artery occlusion with cerebral infarction (HCC) Unspecified cerebral artery occlusion with cerebral infarction 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 Asthma Unspecified asthma Hypertensive heart disease without congestive heart failure Unspecified hypertensive heart disease without heart failure Obstructive sleep apnea Obstructive sleep apnea (adult) (pediatric) Family history of other neurological disease Heartburn Personal history of transient ischemic attack (TIA) and cerebral infarction without residual deficit Cerebral atherosclerosis Diaphragmatic hernia Diaphragmatic hernia without mention of obstruction or gangrene Stricture and stenosis of esophagus documented in this encounter Care Teams Certified Financial Planner Relationship Specialty Start Date End Date Jarrell Garrison MD PCP - General 10/29/07 01/24/11 documented as of this encounter
--- OUTSIDE RECORDS SUMMARY | 2024-05-26 13:04 | XMS_ITS | Encounter Summary ---
Author Organization [facility] Healthcare Address [address] [place] [address] Care Team Providers Care Dope Heater Name Role Phone Jarrell Garrison MD Primary Care Provider [phone] Encounter Details Date Type Department Care Team (Late st Contact Info) Description 10/06/2007 2:26 PM CDT - 10/06/2007 11:59 PM CDT Hospital Encounter [facility] Zachary Lucero MD [address] [place] [address] Social History Tobacco Use Types Packs/Day Years Used Date Smoking Tobacco: Never Assessed Comments Unknown Sex and Gender Information Value Date Recorded Sex Assigned at Not on file Legal Sex Female 6:56 PM PAVER OPERATOR Gender Identity Not on file Sexual [...] on filedocumented in this encounter Care Teams Dope Heater Relationship Specialty Start Date End Date Jarrell Garrison MD PCP - General 08/26/06 10/28/07 documented as of this encounter
--- OUTSIDE RECORDS SUMMARY | 2024-05-26 13:04 | XMS_ITS | Encounter Summary ---
Author Organization [facility] Healthcare Address [address] [place] [address] Care Team Providers Care Executive Cyber Leader Name Role Phone Jarrell Garrison MD Primary Care Provider [phone] [phone] Encounter Details Date Type Department Care Team (Late st Contact Info) Description 07/26/2009 12:01 AM DRIER HELPER - 07/26/2009 11:59 PM [facility] Hospital Encounter [place] [address] [facility] [address] [place], [place] [id number] Swelling of limb; Obstructive sleep apnea Social History Tobacco Use Types Packs/Day Years Used Date Smoking Tobacco: Never Assessed Comments Unknown Sex and Gender Information Value Date Recorded Sex Assigned at Not on file Legal Sex Female 6:56 PM DRIER HELPER Gender Identity Not on file Sexual [...] as of this encounter Visit Diagnoses Diagnosis Swelling of limb Obstructive sleep apnea Obstructive sleep apnea (adult) (pediatric) documented in this encounter Care Teams Executive Cyber Leader Relationship Specialty Start Date End Date Jarrell Garrison MD PCP - General 10/29/07 01/24/11 documented as of this encounter
--- OUTSIDE RECORDS SUMMARY | 2024-05-26 13:04 | XMS_ITS | Encounter Summary ---
Author Organization [facility] Healthcare Address [address] [place] [address] Care Team Providers Care Alignment Specialist Name Role Phone Jarrell Garrison MD Primary Care Provider [phone] Encounter Details Date Type Department Care Team (Latest Contact Info) Description 01/08/2010 2:04 PM CDT - 01/08/2010 11:59 PM CDT Hospital Encounter [facility] CLINCONV Essential hypertension; human resources benefits assistant current use of anticoagulant therapy Social History Tobacco Use Types Packs/Day Years Used Date Smoking Tobacco: Never Assessed Comments Unknown Sex and Gender Information Value Date Recorded Sex Assigned at Not on file Legal Sex Female 6:56 PM CORPORATE LOGISTICS MANAGER Gender Identity Not on file Sexual [...] Diagnoses Diagnosis Essential hypertension Unspecified essential hypertension human resources benefits assistant current use of anticoagulant therapy documented in this encounter Care Teams Alignment Specialist Relationship Specialty Start Date End Date Jarrell Garrison MD PCP - General 10/29/07 01/24/11 documented as of this encounter
--- OUTSIDE RECORDS SUMMARY | 2024-05-26 13:04 | XMS_ITS | Encounter Summary ---
Author Organization [facility] Healthcare Address [address] [place] [address] Care Team Providers Care Oil Paint Shader Name Role Phone Jarrell Garrison MD Primary Care Provider [phone] Encounter Details Date Type Department Care Team (Late st Contact Info) Description 08/10/2009 3:27 PM CDT - 08/10/2009 11:59 PM CDT Hospital Encounter [facility] CLINCONV Social History Tobacco Use Types Packs/Day Years Used Date Smoking Tobacco: Never Assessed Comments Unknown Sex and Gender Information Value Date Recorded Sex Assigned at Not on file Legal Sex Female 6:56 PM FLAVORING MAKER Gender Identity Not on file Sexual Orientation [...] on filedocumented in this encounter Care Teams Oil Paint Shader Relationship Specialty Start Date End Date Jarrell Garrison MD PCP - General 10/29/07 01/24/11 documented as of this encounter
--- OUTSIDE RECORDS SUMMARY | 2024-05-26 13:04 | XMS_ITS | Encounter Summary ---
Author Organization [facility] Healthcare Address [address] [place] [address] Care Team Providers Care Punch Machine Hand Name Role Phone Jarrell Garrison MD Primary Care Provider [phone] Encounter Details Date Type Department Care Team (Late st Contact Info) Description 12/22/2009 12:01 AM CDT - 12/22/2009 11:59 PM CDT Hospital Encounter [facility] CLINCONV Grupo Garcia Other diseases of lung Social History Tobacco Use Types Packs/Day Years Used Date Smoking Tobacco: Never Assessed Comments Unknown Sex and Gender Information Value Date Recorded Sex Assigned at Not on file Legal Sex Female 6:56 PM IRONER OR PRESSER Gender Identity Not on file Sexual Orientation [...] of this encounter Visit Diagnoses Diagnosis Other diseases of lung documented in this encounter Care Teams Punch Machine Hand Relationship Specialty Start Date End Date Jarrell Garrison MD PCP - General 10/29/07 01/24/11 documented as of this encounter
--- OUTSIDE RECORDS SUMMARY | 2024-05-26 13:04 | XMS_ITS | Encounter Summary ---
Author Organization [facility] Healthcare Address [address] [place] [address] Care Team Providers Care Seed Pelleter Name Role Phone Jarrell Garrison MD Primary Care Provider [phone] Encounter Details Date Type Department Care Team (Late st Contact Info) Description 01/17/2010 11:38 AM CDT - 01/17/2010 11:59 PM CDT Hospital Encounter [facility] CLINCONV Incisional hernia; Sleep apnea; Essential hypertension; Esophageal reflux Social History Tobacco Use Types Packs/Day Years Used Date Smoking Tobacco: Never Assessed Comments Unknown Sex and Gender Information Value Date Recorded Sex Assigned at Not on file Legal Sex Female 6:56 PM HARNESS PULLER Gender Identity Not on file Sexual Orientation [...] as of this encounter Visit Diagnoses Diagnosis Incisional hernia Incisional hernia without mention of obstruction or gangrene Sleep apnea Unspecified sleep apnea Essential hypertension Unspecified essential hypertension Esophageal reflux documented in this encounter Care Teams Seed Pelleter Relationship Specialty Start Date End Date Jarrell Garrison MD PCP - General 10/29/07 01/24/11 documented as of this encounter
--- OUTSIDE RECORDS SUMMARY | 2024-05-26 13:04 | XMS_ITS | Encounter Summary ---
Author Organization [facility] Healthcare Address [address] [place] [address] Care Team Providers Care Landscaper Name Role Phone Jarrell Garrison MD Primary Care Provider [phone] Encounter Details Date Type Department Care Team (Late st Contact Info) Description 09/08/2009 10:06 AM CDT - 09/08/2009 11:59 PM CDT Hospital Encounter CH CLINCONV Social History Tobacco Use Types Packs/Day Years Used Date Smoking Tobacco: Never Assessed Comments Unknown Sex and Gender Information Value Date Recorded Sex Assigned at Not on file Legal Sex Female 6:56 PM ELECTRODE CLEANER Gender Identity Not on file Sexual Orientation [...] on filedocumented in this encounter Care Teams Landscaper Relationship Specialty Start Date End Date Jarrell Garrison MD PCP - General 10/29/07 01/24/11 documented as of this encounter
--- OUTSIDE RECORDS SUMMARY | 2024-05-26 13:04 | XMS_ITS | Encounter Summary ---
Author Organization [facility] Healthcare Address [address] [place] [address] Care Team Providers Care Hearing Aide Technician Name Role Phone Jarrell Garrison MD Primary Care Provider +1 [phone] Encounter Details Date Type Department Care Team (Late st Contact Info) Description 01/11/2009 12:01 AM CDT - 01/11/2009 11:59 PM CDT Hospital Encounter [place] [address] [facility] [address] [place] [address] Asthma Social History Tobacco Use Types Packs/Day Years Used Date Smoking Tobacco: Never Assessed Comments Unknown Sex and Gender Information Value Date Recorded Sex Assigned at Not on file Legal Sex Female 6:56 PM PUBLIC TRANSIT TROLLEY DRIVER Gender Identity Not on file Sexual [...] asthma documented in this encounter Care Teams Hearing Aide Technician Relationship Specialty Start Date End Date Jarrell Garrison MD PCP - General 10/29/07 01/24/11 documented as of this encounter
--- OUTSIDE RECORDS SUMMARY | 2024-05-26 13:04 | XMS_ITS | Encounter Summary ---
Author Organization [facility] Healthcare Address [address] [place] [address] Care Team Providers Care Marketing Database Coordinator Name Role Phone Jarrell Garrison MD Primary Care Provider [phone] Encounter Details Date Type Department Care Team (Latest Contact Info) Description 03/27/2010 3:39 PM MANAGER FITNESS - 03/27/2010 11:59 PM MANAGER FITNESS Hospital Encounter [facility] CLINCONV Spinocerebellar disease (CMS/HCC) (HCC); Vertigo, late effect of cerebrovascular disease; Memory loss Social History Tobacco Use Types Packs/Day Years Used Date Smoking Tobacco: Never Assessed Comments Unknown Sex and Gender Information Value Date Recorded Sex Assigned at Not on file Legal Sex Female 6:56 PM MANAGER FITNESS Gender Identity Not on file Sexual Orientation [...] as of this encounter Visit Diagnoses Diagnosis Spinocerebellar disease (CMS/HCC) (HCC) Vertigo, late effect of cerebrovascular disease Memory loss documented in this encounter Care Teams Marketing Database Coordinator Relationship Specialty Start Date End Date Jarrell Garrison MD PCP - General 10/29/07 01/24/11 documented as of this encounter
--- OUTSIDE RECORDS SUMMARY | 2024-05-26 13:04 | XMS_ITS | Encounter Summary ---
Author Organization [facility] Healthcare Address [address] [place] [address] Care Team Providers Care Auditor Internal Name Role Phone Jarrell Garrison MD Primary Care Provider [phone] Encounter Details Date Type Department Care Team (Latest Contact Info) Description 12/19/2008 12:01 AM CDT - 12/19/2008 11:59 PM CDT Hospital Encounter [place] [address] [place] [id number] Late effects of cerebrovascular disease Social History Tobacco Use Types Packs/Day Years Used Date Smoking Tobacco: Never Assessed Comments Unknown Sex and Gender Information Value Date Recorded Sex Assigned at Not on file Legal Sex Female 6:56 PM CONSULTANT DIETITIAN Gender Identity Not on file Sexual Orientation [...] as of this encounter Visit Diagnoses Diagnosis Late effects of cerebrovascular disease documented in this encounter Care Teams Auditor Internal Relationship Specialty Start Date End Date Jarrell Garrison MD PCP - General 10/29/07 01/24/11 documented as of this encounter
--- OUTSIDE RECORDS SUMMARY | 2024-05-26 13:04 | XMS_ITS | Encounter Summary ---
Author Organization [facility] Healthcare Address [address] [place] [address] Care Team Providers Care Online Activist Name Role Phone Jarrell Garrison MD Primary Care Provider [phone] Encounter Details Date Type Department Care Team (Late st Contact Info) Description 08/30/2008 12:01 AM CDT - 08/30/2008 11:59 PM CDT Hospital Encounter CH CLINCONV Thaddeus Lopez MD [address] [place], [place] [id number] Obstructive sleep apnea Social History Tobacco Use Types Packs/Day Years Used Date Smoking Tobacco: Never Assessed Comments Unknown Sex and Gender Information Value Date Recorded Sex Assigned at Not on file Legal Sex Female 6:56 PM PASTE THINNER Gender Identity Not on file Sexual Orientation [...] (pediatric) documented in this encounter Care Teams Online Activist Relationship Specialty Start Date End Date Jarrell Garrison MD PCP - General 10/29/07 01/24/11 documented as of this encounter
--- OUTSIDE RECORDS SUMMARY | 2024-05-26 13:04 | XMS_ITS | Encounter Summary ---
Author Organization [facility] Healthcare Address [address] [place] [address] Care Team Providers Care Typing Office Worker Name Role Phone Jarrell Garrison MD Primary Care Provider [phone] [phone] Encounter Details Date Type Department Care Team (Late st Contact Info) Description 04/01/2008 10:23 AM KIER PLEATER - 04/01/2008 11:59 PM KIER PLEATER Hospital Encounter CH CLINCONV Grupo Garcia Social History Tobacco Use Types Packs/Day Years Used Date Smoking Tobacco: Never Assessed Comments Unknown Sex and Gender Information Value Date Recorded Sex Assigned at Not on file Legal Sex Female 6:56 PM KIER PLEATER Gender Identity Not on file Sexual Orientation [...] on filedocumented in this encounter Care Teams Typing Office Worker Relationship Specialty Start Date End Date Jarrell Garrison MD PCP - General 10/29/07 01/24/11 documented as of this encounter
--- OUTSIDE RECORDS SUMMARY | 2024-05-26 13:04 | XMS_ITS | Encounter Summary ---
Author Organization [facility] Healthcare Address [address] [place] [address] Care Team Providers Care Occupational Nurse Name Role Phone Jarrell Garrison MD Primary Care Provider [phone] [phone] Encounter Details Date Type Department Care Team (Late st Contact Info) Description 02/09/2008 12:01 AM CDT - 02/09/2008 11:59 PM CDT Hospital Encounter [place] [address] [address] Social History Tobacco Use Types Packs/Day Years Used Date Smoking Tobacco: Never Assessed Comments Unknown Sex and Gender Information Value Date Recorded Sex Assigned at Not on file Legal Sex Female 6:56 PM C UNIX DEVELOPER Gender Identity Not on file Sexual Orientation [...] filedocumented in this encounter Care Teams Occupational Nurse Relationship Specialty Start Date End Date Jarrell Garrison MD PCP - General 10/29/07 01/24/11 documented as of this encounter
--- OUTSIDE RECORDS SUMMARY | 2024-05-26 13:13 | XMS_ITS | Encounter Summary ---
Author Organization [facility] Address [address] [place] [address] Care Team Providers Care Lead Application Architect Name Role Phone Theresa Camargo MD Primary Care Provider [phone] Encounter Details Date Type Department Care Team (Late st Contact Info) Description 04/02/2023 External Device Data ST[place] ABSTRACTION Provider, Abstract NO ADDRESS ON FILE Social History Tobacco Use Types Packs/Day Years Used Date Smoking Tobacco: Never Smokeless Tobacco: Never Alcohol Use Standard Drinks/Week Comments No 0 (1 standard drink = 0.6 oz pur e alcohol) Sex and Gender Information Value Date Recorded Sex Assigned at Not on file Gender Identity Not on file Sexual Orientation Not on file documented as of this encounter Plan of Treatment Upcoming Encounters Date Type Department Care Team (Late st Contact Info) Description 07/12/2024 2:30 PM STAGE SET DESIGNER Office Visit [facility] Oncology and Hematology - [place] [address] [facility] [address] [place] [address] Ovidio Nolen MD [address] [facility] [address] [place] [address] documented as of this encounter Visit Diagnoses Not on filedocumented in this encounter Care Teams Lead Application Architect Relationship Specialty Start [place] [address] [facility] [address] [place] [address] PCP - General Internal Medicine 08/14/18 documented as of this encounter
--- OUTSIDE RECORDS SUMMARY | 2024-05-26 13:13 | XMS_ITS | Encounter Summary ---
Author Organization [facility] Address [address] [place] [address] Care Team Providers Care Work Measurement Engineer Name Role Phone Theresa Camargo MD Primary Care Provider [phone] Encounter Details Date Type Department Care Team (Late st Contact Info) Description 06/11/2023 External Device Data STL ABSTRACTION Provider, Abstract [...] st Contact Info) Description 07/12/2024 2:30 PM SUPERVISOR CUSTOMER COMPLAINT SERVICE Office Visit [facility] Oncology and Hematology - [place] [address] [facility] [address] [place] [address] Ovidio Nolen MD [address] [facility] [address] [place] [address] documented as of this encounter Visit Diagnoses Not on filedocumented in this encounter Care Teams Work Measurement Engineer Relationship Specialty Start [place] [address] [facility] [address] [place] [address] PCP - General Internal Medicine 08/14/18 documented as of this encounter
--- OUTSIDE RECORDS SUMMARY | 2024-05-26 13:13 | XMS_ITS | Encounter Summary ---
Author Organization [facility] [employer] [facility] Address [address] [place] [address] Care Team Providers Care Roller Mechanic Name Role Phone Theresa Camargo MD Primary Care Provider [phone] Encounter Details Date Type Department Care Team (Late st Contact Info) Description 08/29/2023 Orders Only [facility] Oncology and Hematology [facility] [address] [place] [address] Ovidio Nolen MD [facility] [address] [place] [address] Social History Tobacco Use Types Packs/Day Years [...] Encounters Date Type Department Care Team (Late Contact Info) Description 07/12/2024 2:30 PM REPORT SPECIALIST Office Visit [facility] Oncology and Hematology [facility] [address] [place] [address] Ovidio Nolen MD [address] [place] [address] documented as of this encounter Procedures Procedure Name Priority Date/Time Associated Diagnosis Comments PERIPHERAL BLOOD SMEAR EVAL Routine 08/22/2023 10:14 AM CDT documented in this encounter Results * PERIPHERAL BLOOD SMEAR EVAL (08/22/2023 10:14 AM CDT) Blood Ovidio Nolen MD HEMATOLOGY ORDERABLE S documented in this encounter Visit Diagnoses Not on filedocumented in this encounter Care Teams Roller Mechanic Relationship Specialty Start [place] [address] [address] PCP - General Internal Medicine 08/14/18 documented as of this encounter
--- OUTSIDE RECORDS SUMMARY | 2024-05-26 13:13 | XMS_ITS | Encounter Summary ---
Author Organization [facility] Address [address] [place] [address] Care Team Providers Care Booking Agent Name Role Phone Theresa Camargo MD Primary Care Provider [phone] Reason for Visit * Reason Comments Medication Refill Encounter Details Date Type Department Care Team (Late st Contact Info) Description 07/16/2021 Refill [facility] Endocrinology [address] [place] [address] Yuliya Ibarra MD [address] [place] [address] Social History Tobacco Use Types Packs/Day Years Used Date Smoking Tobacco: Never Alcohol Use Standard Drinks/Week Comments No 0 (1 standard drink = 0.6 oz pur e alcohol) Sex and Gender Information Value Date Recorded Sex Assigned at Not on file Gender Identity Not on file Sexual Orientation Not on file documented as of this encounter Miscellaneous Notes * Telephone Encounter - Yaw Duarte - 07/16/2021 8:59 AM CST galo - 04/25/21 Nov - 10/29/21 O SURVEILLANCE TECHNICIAN documented in this encounter Plan of Treatment Upcoming Encounters Date Type Department Care Team (Late st Contact Info) Description 07/12/2024 2:30 PM VIDEO SURVEILLANCE TECHNICIAN Office Visit [facility] Oncology and Hematology - Oscar [address] [place] [address] Ovidio Nolen MD [address] [facility] [address] [place] [address] documented as of this encounter Visit Diagnoses Not on filedocumented in this encounter Care Teams Booking Agent Relationship Specialty [place] [address] [facility] [address] [place] [address] PCP - General Internal Medicine 08/14/18 documented as of this encounter
--- OUTSIDE RECORDS SUMMARY | 2024-05-26 13:13 | XMS_ITS | Encounter Summary ---
Author Organization [facility] [employer] [facility] Address [address] [place] [address] Care Team Providers Care Car Body Mechanic Name Role Phone Theresa Camargo MD Primary Care Provider [phone] Encounter Details Date Type Department Care Team (Late Contact Info) Description 02/18/2023 Orders Only [facility] Oncology and Hematology - Oscar [address] [place] [address] Ovidio Nolen MD [address] [facility] [address] [place] [address] Osteoporosis, unspecified osteoporosis type, unspecified pathological fracture presence (Primary Dx); Malignant neoplasm of left breast in female, estrogen receptor positive, unspecified site of breast Social History Tobacco Use Types [...] st Contact Info) Description 07/12/2024 2:30 PM PHOSPHORIC ACID OPERATOR Office Visit [facility] Oncology and Hematology - Oscar [address] [place] [address] Ovidio Nolen MD [address] [facility] [address] [place] [address] documented as of this encounter Visit Diagnoses Diagnosis Osteoporosis, unspecified osteoporosis type, unspecified pathological fracture presence- Primary Malignant neoplasm of left breast in female, estrogen receptor positive, unspecified site of breast documented in this encounter Care Teams Car Body Mechanic Relationship Specialty [place] [address] [facility] [address] [place] [address] PCP - General Internal Medicine 08/14/18 documented as of this encounter
--- OUTSIDE RECORDS SUMMARY | 2024-05-26 13:13 | XMS_ITS | Encounter Summary ---
Author Organization [facility] Address [address] [place] [address] Care Team Providers Care Freight Sorter Name Role Phone Theresa Camargo MD Primary Care Provider [phone] Encounter Details Date Type Department Care Team (Late Contact Info) Description 05/03/2021 Orders Only [facility]3] Endocrinology [address] [place] [address] Yuliya Ibarra MD [address] [place] [address] Social History Tobacco Use Types [...] have Coronavirus / COVID-19? Unable to assess 04/25/2021 1:27 PM NIGHT BAKER documented as of this encounter Plan of Treatment Upcoming Encounters Date Type Department Care Team (Late Contact Info) Description 07/12/2024 2:30 PM NIGHT BAKER Office Visit [facility]3] Oncology and Hematology - Oscar [address] [place] [address] Ovidio Nolen MD [address] [facility] [address] [place] [address] documented as of this encounter Procedures Procedure Name Priority Date/Time Associated Diagnosis Comments MISCELLANEOUS LAB TEST Routine 05/03/2021 documented in this encounter Results * MISCELLANEOUS LAB TEST (05/03/2021) Yuliya Ibarra MD [facility] documented in this encounter Visit Diagnoses Not on filedocumented in this encounter Care Teams Freight Sorter Relationship Specialty [place] [address] [facility] [address] [place] [address] PCP - General Internal Medicine 08/14/18 documented as of this encounter
--- OUTSIDE RECORDS SUMMARY | 2024-05-26 13:13 | XMS_ITS | Encounter Summary ---
Author Organization [facility]3] [employer] [facility] Address [address] [place] [address] Care Team Providers Care Telegrapher Agent Name Role Phone Theresa Camargo MD Primary Care Provider [phone] Encounter Details Date Type Department Care Team (Late st Contact Info) Description 12/29/2023 Orders Only [facility] Oncology and Hematology - Oscar [address] [place] [address] Scanning, Provider Social History Tobacco Use Types Packs/Day [...] st Contact Info) Description 07/12/2024 2:30 PM CREDIT PORTFOLIO ADVISOR Office Visit [facility] Oncology and Hematology [facility] [address] [place] [address] Ovidio Nolen MD [address] [facility] [address] [place] [address] documented as of this encounter Procedures Procedure Name Priority Date/Time Associated Diagnosis Comments COMPREHENSIVE METABOLIC PANEL Routine 12/27/2023 12:14 PM CDT documented in this encounter Results * COMPREHENSIVE METABOLIC PANEL (12/27/2023 12:14 PM CDT) Blood Provider Scanning CHEMISTRY ORDERABLES documented in this encounter Visit Diagnoses Not on filedocumented in this encounter Care Teams Telegrapher Agent Relationship Specialty [place] [address] [address] PCP - General Internal Medicine 08/14/18 documented as of this encounter
--- OUTSIDE RECORDS SUMMARY | 2024-05-26 13:13 | XMS_ITS | Encounter Summary ---
Author Organization [facility] Address [address] [place] [address] Care Team Providers Care Plywood And Veneer Repairer Name Role Phone Theresa Camargo MD Primary Care Provider [phone] Encounter Details Date Type Department Care Team (Late st Contact Info) Description 07/07/2023 External Device Data STL ABSTRACTION Provider, Abstract [...] Contact Info) Description 07/12/2024 2:30 PM SUPERVISOR SOUND TECHNICIAN Office Visit [facility] Oncology and Hematology - Oscar [address] [facility] [address] [place] [address] Ovidio Nolen MD [address] [facility] [address] [place] [address] documented as of this encounter Visit Diagnoses Not on filedocumented in this encounter Care Teams Plywood And Veneer Repairer Relationship Specialty [place] [address] [facility] [address] [place] [address] PCP - General Internal Medicine 08/14/18 documented as of this encounter
--- OUTSIDE RECORDS SUMMARY | 2024-05-26 13:13 | XMS_ITS | Encounter Summary ---
Author Organization [facility] [employer] [facility] Address [address] [place] [address] Care Team Providers Care Machinist Helper Marine Name Role Phone Theresa Camargo MD Primary Care Provider [phone] Encounter Details Date Type Department Care Team (Late Contact Info) Description 06/19/2022 Abstract [facility] Oncology and Hematology Oscar [address] [place] [address] Teagan Montgomery Social History Tobacco Use Types Packs/Day Years Used Date Smoking Tobacco: Never Smokeless Tobacco: Never Alcohol Use Standard Drinks/Week Comments No 0 (1 standard drink = 0.6 oz pur e alcohol) Sex and Gender Information Value Date Recorded Sex Assigned at Not on file Gender Identity Not on file Sexual Orientation Not on file COVID-19 Exposure Response Date Recorded In the last 10 days, have yo u been in contact with someone who was confirmed or suspected to have Coronavirus/COVID-19? No / Unsure 06/06/2022 1:18 PM TECHNICAL SUPERVISOR documented as of this encounter Plan of Treatment Upcoming Encounters Date Type Department Care Team (Late Contact Info) Description 07/12/2024 2:30 PM TECHNICAL SUPERVISOR Office Visit [facility] Oncology and Hematology Oscar [address] [place] [address] Ovidio Nolen MD [address] [facility] [address] [place] [address] documented as of this encounter Visit Diagnoses Not on filedocumented in this encounter Care Teams Machinist Helper Marine Relationship Specialty Start [place] [address] [address] PCP - General Internal Medicine 08/14/18 documented as of this encounter
--- OUTSIDE RECORDS SUMMARY | 2024-05-26 13:13 | XMS_ITS | Encounter Summary ---
Author Organization [facility] Address [address] [place] [address] Care Team Providers Care Newswriter Name Role Phone Theresa Camargo MD Primary Care Provider [phone] Encounter Details Date Type Department Care Team (Late st Contact Info) Description 02/17/2024 External Device Data STL ABSTRACTION Provider, Abstract [...] st Contact Info) Description 07/12/2024 2:30 PM EXTRUDING DEPARTMENT SUPERVISOR Office Visit [facility] Oncology and Hematology - Oscar [address] [facility] [address] [place] [address] Ovidio Nolen MD [address] [facility] [address] [place] [address] documented as of this encounter Visit Diagnoses Not on filedocumented in this encounter Care Teams Newswriter Relationship Specialty Start [place] [address] [facility] [address] [place] [address] PCP - General Internal Medicine 08/14/18 documented as of this encounter
--- OUTSIDE RECORDS SUMMARY | 2024-05-26 13:13 | XMS_ITS | Encounter Summary ---
Author Organization [facility] Address [address] [place] [address] Care Team Providers Care Band Attacher Name Role Phone Theresa Camargo MD Primary Care Provider [phone] Reason for Visit * Reason Comments Medication Refill Encounter Details Date Type Department Care Team (Late st Contact Info) Description 06/22/2021 Refill [facility] Endocrinology [address] [place] [address] Yuliya Ibarra MD [address] [place] [address] Social History Tobacco Use Types [...] encounter Miscellaneous Notes * Addendum Note - Ina Laguna - 06/27/2021 2:39 PM CSTAddended by: INA LAGUNA on: 06/27/2021 02:39 PM Modules accepted: Orders OR ACCOUNT REPRESENTATIVE * Telephone Encounter - Ina Laguna - 06/27/2021 2:38 PM CST PHARM NEEDS MCR COMPLIANT RX RESENT OR ACCOUNT REPRESENTATIVE * Telephone Encounter - Sejal Bee - 06/22/2021 5:31 PM CST JOSE G 04/25/2021 NOV 10/29/2021 OR ACCOUNT REPRESENTATIVE documented in this encounter Plan of Treatment Upcoming Encounters Date Type Department Care Team (Late st Contact Info) Description 07/12/2024 2:30 PM SENIOR ACCOUNT REPRESENTATIVE Office Visit [facility] Oncology and Hematology - [place] [address] [facility] [address] [place] [address] Ovidio Nolen MD [address] [facility] [address] [place] [address] documented as of this encounter Visit Diagnoses Not on filedocumented in this encounter Care Teams Band Attacher Relationship Specialty Start [place] [address] [facility] [address] [place] [address] PCP - General Internal Medicine 08/14/18 documented as of this encounter
--- OUTSIDE RECORDS SUMMARY | 2024-05-26 13:13 | XMS_ITS | Encounter Summary ---
Author Organization [facility] [employer] [facility] Address [address] [place] [address] Care Team Providers Care Project Manager Entertainment And Media Name Role Phone Theresa Camargo MD Primary Care Provider [phone] Encounter Details Date Type Department Care Team (Late st Contact Info) Description 07/10/2023 Orders Only [facility] Oncology and Hematology [facility] [address] [place] [address] Ovidio Nolen MD [facility] [address] [place] [address] Social History Tobacco Use Types Packs/Day [...] (Late Contact Info) Description 07/12/2024 2:30 PM SENIOR CLERK Office Visit [facility] Oncology and Hematology [facility] [address] [place] [address] Ovidio Nolen MD [address] [place] [address] documented as of this encounter Procedures Procedure Name Priority Date/Time Associated Diagnosis Comments NM BONE DENSITY Routine 07/09/2023 11:49 AM SENIOR CLERK documented in this encounter Results * NM BONE DENSITY (07/09/2023 11:49 AM SENIOR CLERK) Anatomical Region Laterality Modality Other Ovidio Nolen MD NM ORDERABLES documented in this encounter Visit Diagnoses Not on filedocumented in this encounter Care Teams Project Manager Entertainment And Media Relationship Specialty Start [place] [address] [address] PCP - General Internal Medicine 08/14/18 documented as of this encounter
--- OUTSIDE RECORDS SUMMARY | 2024-05-26 13:13 | XMS_ITS | Encounter Summary ---
Author Organization [facility] Address [address] [place] [address] Care Team Providers Care Sustainable Design Consultant Name Role Phone Theresa Camargo MD Primary Care Provider [phone] Encounter Details Date Type Department Care Team (Late st Contact Info) Description 08/22/2023 External Device Data STL ABSTRACTION Provider, Abstract [...] st Contact Info) Description 07/12/2024 2:30 PM SPINNING FRAME FIXER Office Visit [facility] Oncology and Hematology - Oscar [address] [facility] [address] [place] [address] Ovidio Nolen MD [address] [facility] [address] [place] [address] documented as of this encounter Visit Diagnoses Not on filedocumented in this encounter Care Teams Sustainable Design Consultant Relationship Specialty Start [place] [address] [facility] [address] [place] [address] PCP - General Internal Medicine 08/14/18 documented as of this encounter
--- OUTSIDE RECORDS SUMMARY | 2024-05-26 13:13 | XMS_ITS | Encounter Summary ---
Author Organization [facility] Address [address] [place] [address] Care Team Providers Care Compo Caster Name Role Phone Theresa Camargo MD Primary Care Provider [phone] Reason for Visit * Reason Comments Establish Care Cancer Encounter Details Date Type Department Care Team (Late st Contact Info) Description 06/06/2022 1:30 PM CERTIFIED OPTICIAN Office Visit [facility] Oncology and Hematology - [place] [address] [place] [address] [facility] [address] [place] [address] Ovidio Nolen MD [address] [facility] [address] [place] [address] Malignant neoplasm of left breast in female, estrogen receptor positive, unspecified site of breast (Primary Dx); Osteoporosis, unspecified osteoporosis type, unspecified pathological fracture presence Social History Tobacco Use Types Packs/Day Years [...] Coronavirus/COVID-19? No / Unsure 06/06/2022 1:18 PM CERTIFIED OPTICIAN documented as of this encounter Last Filed Vital Signs Vital Sign Reading Time Taken Comments Blood Pressure 127/62 06/06/2022 1:43 PM CERTIFIED OPTICIAN Pulse 67 06/06/2022 1:30 PM CERTIFIED OPTICIAN Temperature 36.3 ??C (97.3 ??F) 06/06/2022 1:30 PM CS T Respiratory Rate 16 06/06/2022 1:30 PM CERTIFIED OPTICIAN Oxygen Saturation 94% 06/06/2022 1:30 PM CERTIFIED OPTICIAN Inhaled Oxygen Concentration - - Weight 76.2 kg (168 lb) 06/06/2022 1:30 PM CERTIFIED OPTICIAN Height 165.1 cm (5' 5 ) 06/06/2022 1:30 PM CERTIFIED OPTICIAN Body Mass Index 27.96 06/06/2022 1:30 PM CERTIFIED OPTICIAN documented in this encounter Progress Notes * Ovidio Nolen MD - 06/06/2022 4:06 PM CST Hematology-oncology consult Note Requesting Physician Theresa Camargo MD Primary Care Physician Theresa Camargo MD Problem list Patient Active Problem List Diagnosis Code ssc, a&p, no sling N99.3 Multiple thyroid nodules E04.2 Hypercalcemia E83.52 Type 2 diabetes mellitus without complication, without long-term current use of insulin E11.9 Primary hypothyroidism E03.9 Previous TREATMENT ? Measurable Disease ? Reason for Visit Perla Leon is a 81 y.o. female who was referred for consultation for breast cancer and osteoporosis. 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 She had a screening mammogram in June 2017 that showed a spiculated mass in the upper outer quadrant of the left breast. Excisional biopsy done on August 25, 2017 showed 1.1 cm grade 2 IDC with DCIS and all surgical margins were negative. [place] lymph node biopsy on August 2017 showed 2 lymph nodes negative for malignancy. Patient decided to foregoadjuvant radiation therapy treatment. She was started on Arimidex 1 mg daily in September 2017 which she has been tolerating well. Patient was also diagnosed with osteopenia in October 2017 and was started on calcium and vitamin D and also started on Prolia on December 2017. Her last bone density on June 06, 2020 showed osteopenia. She was last seen by her previous oncologist Dr. Gonzalez in July 2021 on a telemedicine visit. Patient daughter accompanied her today. They want to transfer her care locally as she is getting older and cannot go to [facility] and wants to transfer her care to us since she lives in [facility] assisted living. Clinically she denies any new lung bumps or lymphadenopathy. Denies any bleeding and bruising. No other new complaints. 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 Valencia HX HERNIA REPAIR 2009-hinduism ne HX HYSTERECTOMY 1985 HX KNEE ARTHROSCOPY [id number] right knee HX SURGICAL OTHER 1975 ulcer removed from vocal cord HX SURGICAL OTHER 1984 surgery for broken nose HX SURGICAL OTHER 09/10/2010 ANTERIOR POSTERIOR REPAIR performed by FRANKLYN PACK at [facility] OR MAIN GA ANTERIOR COLPORRAPHY RPR CYSTOCELE W/CYSTO 09/10/2010 CYSTOCELE REPAIR performed by FRANKLYN PACK at [facility] OR MAIN GA COLPOPEXY VAGINAL EXTRAPERITONEAL APPROACH 09/10/2010 SACROSPINOUS LIGAMENT FIXATION performed by FRANKLYN PACK at [facility] OR MAIN GA PERINEOPLASTY RPR PERINEUM NONOBSTETRICAL SPX 09/10/2010 PERINEOPLASTY performed by FRANKLYN PACK at [facility] OR MAIN GA POST COLPORRHAPHY RECTOCELE W/WO PERINEORRHAPHY 09/10/2010 RECTOCELE REPAIR performed by FRANKLYN PACK at [facility] OR MAIN GA REPAIR ENTEROCELE VAGINAL APPROACH SPX 09/10/2010 ENTEROCELE REPAIR VAGINAL APPROACH performed by FRANKLYN PACK at [facility] OR MAIN Medications Current Outpatient Medications Medication Sig Dispense Refill bisacodyL (DULCOLAX) 10 mg Suppository Insert 10 mg by rectum 1 time daily as needed. Invokana 100 mg TAKE 1 TABLET BY MOUTH EVERY DAY BEFORE BREAKFAST 90 Tablet 0 levothyroxine 75 mcg tablet Take 1 tablet Friday-Friday, 1/2 tablet on Friday. Dose change 05/04/21 90 Tablet 1 Eliquis 5 mg tablet Cranberry Extract 425 mg Capsule Take 425 mg by mouth daily. furosemide (LASIX) 40 mg tablet HYDROcodone-acetaminophen (NORCO) 5-325 mg tablet lactulose (ENULOSE) 10 gram/15 mL 10 gram/15 mL solution metoclopramide HCl (REGLAN) 10 mg tablet nitroglycerin (NITROSTAT) 0.4 mg Tablet, Sublingual Place 0.4 mg under tongue every 5 minutes as needed. spironolactone (ALDACTONE) 25 mg tablet trospium (SANCTURA) 20 mg Tablet Januvia 100 mg Tablet blood sugar diagnostic (FreeStyle Lite Strips) Strip TEST BLOOD SUGARS THREE TIMES A DAY DX E11.9 300 Strip 0 glimepiride (AMARYL) 1 mg tablet TAKE 2 TABLETS BY MOUTH WITH BREAKFAST AND LUNCH, AND 1 TABLET WITH DINNER 540 Tablet 0 BD Maddi 2nd Gen Pen Needle 32 gauge x 5/32 Needle USE TO INJECT INSULIN ONCE DAILY 100 Each 3 insulin glargine (Lantus Solostar U-100 Insulin) 100 unit/mL pen syringe 10 units SQ in am 15 mL 2 denosumab (PROLIA) 60 mg/mL Syringe Inject 60 mg by subcutaneous injection Every twentysix weeks. albuterol HFA 90 mcg inhaler Take 2 Puffs by mouth. anastrozole (ARIMIDEX) 1 mg tablet Take 1 mg by mouth. aspirin-calcium carbonate 81 mg-300 mg calcium(777 mg) Tablet Take 81 mg by mouth. Calcium Carbonate-Vit D3-Min 600 mg calcium- 400 unit Tablet Take 1 Tablet by mouth. linaclotide (LINZESS) 145 mcg capsule Take 145 mcg by mouth. polyethylene glycol (MIRALAX) 17 gram Powder in Packet Take 17 Grams by mouth. verapamil (VERELAN) 240 mg Sustained Release 24 hour capsule Take 240 mg by mouth. metOLazone (ZAROXOLYN) 2.5 mg tablet Take 2.5 mg by mouth every 7 days. potassium chloride (KLOR-CON) 10 mEq Extended Release tablet TAKE 4 TABLETS DAILY WITH BREAKFAST 360 Tablet 0 lancets (FREESTYLE LANCETS) 28 gauge 100 Each by [facility]Non-Drug; Combo Route) route daily. Dx code 250.02 100 Each 6 esomeprazole (NEXIUM) 40 mg Oral CpDR Take 40 mg by mouth daily before breakfast. amitriptyline (ELAVIL) 50 mg Oral tablet Take 50 mg by mouth daily at bedtime. rosuvastatin (CRESTOR) 10 mg Oral tablet Take 10 mg by mouth daily at bedtime. cyanocobalamin (VITAMIN B-12) 1,000 mcg Oral Tab Take 1,000 mcg by mouth daily. multivitamin (DAILY-BRYON) Oral tablet Take 1 Tab by mouth daily. Indications: instructed to stop prior to surgery No current facility-administered medications for this visit. Allergies Allergies Allergen Reactions Diltiazem Unknown Donepezil Unknown Fluticasone Propion-Salmeterol Unknown Immunizations: Immunization History Administered Date(s) Administered ([employer])(12 YR UP) COVID-19 VACCINE - EMERGENCY USE AUTHORIZATION, MRNA, [id number](PF) 30 MCG/0.3 MLIM SUSP 06/13/2020, 07/07/2020 Family History Family History Problem Relation Name Age of Onset Breast Cancer Mother Hypertension Brother High Cholesterol Brother No Known Problems Daughter No Known Problems Daughter No Known Problems Daughter Social History Social History Tobacco Use Smoking status: Never Smokeless tobacco: Never Substance Use Topics Alcohol use: No Review of Systems Constitutional: Patient did not mention fever; no night sweats; no anorexia; no weight loss; no fatique NEENT: Patient did not mention headache; no change in vision; no change in hearing; no sore throat;no dysphagia Respiratory: Patient did not mention shortness of breath; no pleuritic chest pain; no cough; no hemoptysis Cardiac: Patient did not mention cardiac-like chest pain; no palpitations; no orthopnea; no PND; noDOE Breasts: Patient did not mention tenderness; no masses GI: Patient did not mention abdominal pain; no nausea; no vomiting; no diarrhea; no hematochezia; no melena : Patient did not mention dysuria; no frequency; no hesitancy; no hematuria MANAGER QUALITY IMPROVEMENT: Musculosketetal: Patient did not mention bone pain; no arthralgia; no joint swelling; no myalgia; Skin: Patient did not mention pruritis; no rash; no petechiae; no ecchymoses Endocrine: Patient did not mention polydipsia; no polyuria; no unusual weight gain Neuro: Patient did not mention headache; no change in vision; no sensory changes; no muscle weakness; no confusion; no seizures Psych: Patient did not mention anxiety; no depression; Physical Exam Vitals: As per nursing note Constitutional: Well developed, well nourished, no acute distress, non-toxic appearance Teeth and gum. No signs of infection or swelling. Eyes: PERRL, conjunctiva normal HEENT: Atraumatic, external ears normal, nose normal, oropharynx moist, no pharyngeal exudates. no sinus tenderness Neck- normal range of motion, no tenderness, supple Respiratory: No respiratory distress, normal breath sounds, no rales, no wheezing Breasts: Symmetric, No masses, No nipple discharge. Cardiovascular: Normal rate, normal rhythm, no murmurs, no gallops, no rubs GI: Soft, nondistended, normal bowel sounds, nontender, no splenomegaly, no hepatomegaly, no mass, no rebound, no guarding : No costovertebral angle tenderness Musculoskeletal: No edema, no tenderness, no deformities. Back- no tenderness Integument: Well hydrated, no rash, Digits and nails inspection normal Lymphatic: No lymphadenopathy noted Neurologic: Alert & oriented x 3, CN 2-12 normal, normal motor function, normal sensory function, no focal deficits noted Psychiatric: Speech and behavior appropriate ? labs No results found for this or any previous visit (from the past 24 hour(s)). Pathology ? Imaging & Other Studies Performance Status? Assessment / Plan: ? 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 Allsurgical margins were negative. [place] lymph node biopsy done on September 08, 2017 showed 2 lymph node negative for tumor involvement. ER/GA was positive. Patient decided to forego adjuvant radiation t herapy treatment and started on Arimidex on September 2017. There is evidence of relapse of disease on the clinical examination. She has been tolerating Arimidex well. We will perform labs including CBC, CMP and CA 15-3. Patient and the daughter is not interested in any further mammographic evaluation. Osteopenia/osteoporosis. Patient has been on Prolia since December 2017 along with calcium and vitamin D. Her last bone density was in May 2020 that showed osteopenia. Her last treatment with Prolia was in summer 2021. We will order bone density testing and restart Prolia injections for at least another 1 year duration. Familial spastic paraparesis. Patient is wheelchair-bound. Thank you very much for allowing me to participate in Perla Leon's evaluation and management. Please feel free to contact if I can be of any further assistance in your patient???s care requiring hematology or oncology evaluation. Sincerely, ? ? Ovidio Nolen M.D. cell TOBACCO COUNSELING She is not a tobacco user. Ovidio Nolen MD ,06/06/2022 4:06 PM ? Total time spent 60 minutes, two third of the total time spent counseling patient [id number]. CC:?Theresa Camargo MD IFIED OPTICIAN documented in this encounter Plan of Treatment Upcoming Encounters Date Type Department Care Team (Late st Contact Info) Description 07/12/2024 2:30 PM CERTIFIED OPTICIAN Office Visit [facility] Oncology and Hematology - [place] [address] [facility] [address] [place] [address] Ovidio Nolen MD [address] [facility] [address] [place] [address] Scheduled Orders Name Type Priority Associated Diagnoses Orde r Schedule CBC WITH DIFFERENTIAL Lab Stat Osteoporosis, unspecified osteoporosis type, unspecified pathological fracture presence Expected: 06/06/2022, Expires: 06/06/2023 COMPREHENSIVE METABOLIC PANEL Lab Stat Osteoporosis, unspecified osteoporosis type, unspecified pathological fracture presence Expected: 06/06/2022, Expires: 06/06/2023 CANCER ANTIGEN 15-3 Lab Routine Osteoporosis, unspecified osteoporosis type, unspecified pathological fracture presence Expected: 06/06/2022, Expires: 06/06/2023 documented as of this encounter Visit Diagnoses Diagnosis Malignant neoplasm of left breast in female, estrogen receptor positive, unspecified site of breast- Primary Osteoporosis, unspecified osteoporosis type, unspecified pathological fracture presence documented in this encounter Care Teams Compo Caster Relationship Specialty [place] [id number] [phone] PCP - General Internal Medicine 08/14/18 documented as of this encounter
--- OUTSIDE RECORDS SUMMARY | 2024-05-26 13:13 | XMS_ITS | Encounter Summary ---
Author Organization [facility] Address [address] [place] [address] Care Team Providers Care Pest Control Service Sales Agent Name Role Phone Theresa Camargo MD Primary Care Provider [phone] Encounter Details Date Type Department Care Team (Late st Contact Info) Description 08/11/2023 Orders Only [facility] Oncology and Hematology [facility] [address] [place] [address] Ovidio Nolen MD [facility] [address] [place] [address] Social History Tobacco Use Types Packs/Day [...] (Late Contact Info) Description 07/12/2024 2:30 PM SUPPLY CHAIN PLANNER Office Visit [facility] Oncology and Hematology [facility] [address] [place] [address] Ovidio Nolen MD [address] [place] [address] documented as of this encounter Procedures Procedure Name Priority Date/Time Associated Diagnosis Comments COMPREHENSIVE METABOLIC PANEL Routine 08/06/2023 2:22 PM CDT documented in this encounter Results * COMPREHENSIVE METABOLIC PANEL (08/06/2023 2:22 PM CDT) Blood Ovidio Nolen MD CHEMISTRY ORDERABLES documented in this encounter Visit Diagnoses Not on filedocumented in this encounter Care Teams Pest Control Service Sales Agent Relationship Specialty [place] [id number] [address] PCP - General Internal Medicine 08/14/18 documented as of this encounter
--- OUTSIDE RECORDS SUMMARY | 2024-05-26 13:13 | XMS_ITS | Encounter Summary ---
Author Organization [facility] Address [address] [place] [address] Care Team Providers Care Co Founder And Chairman Name Role Phone Theresa Camargo MD Primary Care Provider [phone] Reason for Visit * Reason Comments Cancer Follow Up Encounter Details Date Type Department Care Team (Late st Contact Info) Description 08/20/2023 11:00 AM CDT Office Visit [facility] Oncology and Hematology - [place] [address] [place] [address] [address] [place] [address] Ovidio Nolen MD [address] [facility] [address] [place] [address] Chronic anemia (Primary Dx); Leukocytosis, unspecified type Social History Tobacco Use Types [...] Sign Reading Time Taken Comments Blood Pressure 128/61 08/20/2023 11:10 AM CDT Pulse 70 08/20/2023 11:10 AM CDT Temperature 36.2 ??C (97.1 ??F) 08/20/2023 11:10 AM C DT Respiratory Rate 14 08/20/2023 11:10 AM CDT Oxygen Saturation 96% 08/20/2023 11:10 AM CDT Inhaled Oxygen Concentration - - Weight 72.6 kg (160 lb) 08/20/2023 11:10 AM CDT Height - - Body Mass Index 26.63 06/06/2022 1:30 PM RADIOLOGY PHYSICIAN documented in this encounter Progress Notes * Ovidio Nolen MD - 08/20/2023 11:46 AM CDT HEMATOLOGY / ONCOLOGY PROGRESS NOTE Patient Identification: Name: Perla Leon Age: 82 y.o. 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 Allsurgical margins were negative. [place] lymph node biopsy done on September 08, 2017 showed 2 lymph node negative for tumor involvement. ER/ME was positive. Leukocytosis Microcytic anemia CURRENT TREATMENT Anastrozole 1 mg daily started September 2017 Ferrous sulfate 65 mg twice daily TREATMENT HISTORY SUBJECTIVE Patient came to the office for follow-up visit. She has some tiredness and fatigue. She has been dealing with some bedsores. She has some nail fungus infection and complain of frequent UTIs. No othernew complaints. Review of system Constitutional: Patient did not mention fevers, sweats, fatigue, malaise, weight loss HEENT: Patient did not mention sinus congestion, hearing or vision problems Respiratory: Patient did not mention cough, dyspnea, wheeze Cardiovascular: Patient did not mention chest pain, exertional chest pressure/discomfort, nausea, syncope, shortness of breath GI: Patient did not mention constipation, diarrhea, dsyphagia, reflux symptoms, vomiting, melena : Patient did not mention dysuria, frequency, incontinence, urgency Integumentary system: no lymphadenopathy, sweats, flushing Musculoskeletal: Patient not mention: myalgia, arthralgia Neurological: Patient did not mention blurry or disturbed vision, numbness/weakness, dizziness Skin: No lumps, bumps or rashes. Objective: Vital signs in last 24 hours: As per nursing note Exam: General appearance: alert, cooperative, no distress, appears stated age Head: normocephalic, without obvious abnormality, atraumatic Eyes: conjunctivae/corneas clear, EOM's intact Ears: normal external ear canals AU Nose: Nares normal. Septum midline. Mucosa normal. No drainage or sinus tenderness Throat: Lips, mucosa, and tongue normal. Teeth and gums normal Neck: supple, symmetrical, trachea midline. Lungs: clear to auscultation bilaterally Heart: regular rate and rhythm, S1, S2 normal, no murmur, click, rub or gallop Abdomen: soft, non-tender. Bowel sounds normal. No masses, No organomegaly Extremities: extremities normal, atraumatic, no cyanosis or edema Skin: Skin color, texture, turgor normal. 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 Allsurgical margins were negative. [place] lymph node biopsy done on September 08, 2017 showed 2 lymph node negative for tumor involvement. ER/ME was positive. Labs noted. Tumor markers slightly elevated likely secondary to infection/inflammation. Patient refused to have any further mammograms. Continue anastrozole 1 mg daily which she has been taking since September 2017. Leukocytosis. Likely reactive to inflammation/infection. Patient has bedsores and has been dealing with some frequent UTIs. Will check flow cytometric analysis for leukemia as well as C-reactive protein and sedimentation rate. Microcytic anemia. She is taking oral iron twice a day and denies any bleeding. Will check iron studies and vitamin B12 level today. No need for bone marrow biopsy. Osteopenia/osteoporosis. Bone density reviewed. Will start Prolia injections. Family LE spastic paraparesis. She is wheelchair-bound. Phone visit in 2 weeks. ? TOBACCO COUNSELING She is not a tobacco/nicotine user. 08/20/2023 Ovidio Nolen MD documented in this encounter Plan of Treatment Upcoming Encounters Date Type Department Care Team (Late st Contact Info) Description 07/12/2024 2:30 PM RADIOLOGY PHYSICIAN Office Visit [facility] Oncology and Hematology - [place] [address] [facility] [address] [place] [address] Ovidio Nolen MD [address] [facility] [address] [place] [address] Scheduled Orders Name Type Priority Associated Diagnoses Orde r Schedule FERRITIN Lab Routine Chronic anemia Expected: 08/20/2023, Expires: 08/19/2024 IRON, TIBC, AND PERCENT SATURATION Lab Routine Chronic anemia Expected: 08/20/2023, Expires: 08/19/2024 LACTATE DEHYDROGENASE Lab Routine Chronic anemia Expected: 08/20/2023, Expires: 08/19/2024 VITAMIN B12 AND FOLATE Lab Routine Chronic anemia Expected: 08/20/2023, Expires: 08/19/2024 C-REACTIVE PROTEIN Lab Routine Chronic anemia Leukocytosis, unspecified type Expected: 08/20/2023, Expires: 08/19/2024 SEDIMENTATION RATE Lab Routine Leukocytosis, unspecified type Expected: 08/20/2023, Expires: 08/19/2024 FLOW CYTOMETRY PANEL Lab Routine Leukocytosis, unspecified type Expected: 08/20/2023, Expires: 08/19/2024 documented as of this encounter Visit Diagnoses Diagnosis Chronic anemia- Primary Anemia, unspecified Leukocytosis, unspecified type documented in this encounter Care Teams Co Founder And Chairman Relationship Specialty Start [place] [address] [phone] PCP - General Internal Medicine 08/14/18 documented as of this encounter
--- OUTSIDE RECORDS SUMMARY | 2024-05-26 13:13 | XMS_ITS | Encounter Summary ---
Author Organization [facility] Construct [facility] Address [address] [place] [address] Care Team Providers Care Therapist Name Role Phone Theresa Camargo MD Primary Care Provider [phone] Encounter Details Date Type Department Care Team (Late Contact Info) Description 06/10/2022 Orders Only [facility] Oncology and Hematology [address] [place] [address] Teagan Montgomery Osteoporosis, unspecified osteoporosis type, unspecified pathological fracture [...] Coronavirus/COVID-19? No / Unsure 06/06/2022 1:18 PM TAKE AWAY ATTENDANT documented as of this encounter Plan of Treatment Upcoming Encounters Date Type Department Care Team (Late Contact Info) Description 07/12/2024 2:30 PM TAKE AWAY ATTENDANT Office Visit [facility] Oncology and Hematology [address] [place] [address] Ovidio Nolen MD [address] [facility] [address] [place] [address] documented as of this encounter Visit Diagnoses Diagnosis Osteoporosis, unspecified osteoporosis type, unspecified pathological fracture presence documented in this encounter Care Teams Therapist Relationship Specialty [place] [address] [facility] [address] [place] [address] PCP - General Internal Medicine 08/14/18 documented as of this encounter
--- OUTSIDE RECORDS SUMMARY | 2024-05-26 13:13 | XMS_ITS | Encounter Summary ---
Author Organization [facility] Address [address] [place] [address] Care Team Providers Care Platform Beater Name Role Phone Theresa Camargo MD Primary Care Provider [phone] Encounter Details Date Type Department Care Team (Late st Contact Info) Description 01/20/2024 External Device Data STL ABSTRACTION Provider, Abstract [...] st Contact Info) Description 07/12/2024 2:30 PM CARCASS SPLITTER Office Visit [facility] Oncology and Hematology - Oscar [address] [facility] [address] [place] [address] Ovidio Nolen MD [address] [facility] [address] [place] [address] documented as of this encounter Visit Diagnoses Not on filedocumented in this encounter Care Teams Platform Beater Relationship Specialty [place] [address] [facility] [address] [place] [address] PCP - General Internal Medicine 08/14/18 documented as of this encounter
--- OUTSIDE RECORDS SUMMARY | 2024-05-26 13:13 | XMS_ITS | Encounter Summary ---
Author Organization [facility] [employer] [facility] Address [address] [place] [address] Care Team Providers Care Hairspring Ii Inspector Name Role Phone Theresa Camargo MD Primary Care Provider [phone] Encounter Details Date Type Department Care Team (Late st Contact Info) Description 08/21/2023 Orders Only [facility] Oncology and Hematology [facility] [address] [place] [address] Ovidio Nolen MD [facility] [address] [address] [place] [address] Social History Tobacco Use Types Packs/Day [...] (Late Contact Info) Description 07/12/2024 2:30 PM CUTTER OPERATOR Office Visit [facility] Oncology and Hematology [facility] [address] [place] [address] Ovidio Nolen MD [address] [address] [place] [address] documented as of this encounter Procedures Procedure Name Priority Date/Time Associated Diagnosis Comments SEDIMENTATION RATE Routine 08/20/2023 11 :10 AM CDT IRON, TIBC, AND PERCENT SATURATION Routine 08/20/2023 10:45 AM CDT documented in this encounter Results * SEDIMENTATION RATE (08/20/2023 11:10 AM CDT) Blood Ovidio Nolen MD HEMATOLOGY ORDERABLE S * IRON, TIBC, AND PERCENT SATURATION (08/20/2023 10:45 AM CDT) Blood Ovidio Nolen MD CHEMISTRY ORDERABLES documented in this encounter Visit Diagnoses Not on filedocumented in this encounter Care Teams Hairspring Ii Inspector Relationship Specialty [place] [address] [address] PCP - General Internal Medicine 08/14/18 documented as of this encounter
--- OUTSIDE RECORDS SUMMARY | 2024-05-26 13:13 | XMS_ITS | Encounter Summary ---
Author Organization [facility] Address [address] [place] [address] Care Team Providers Care Jewelry Bearing Maker Name Role Phone Theresa Camargo MD Primary Care Provider [phone] Reason for Visit * Reason Comments Medication Refill Encounter Details Date Type Department Care Team (Late st Contact Info) Description 07/27/2021 Refill [facility] Endocrinology [address] [facility] [address] [place] [address] Yuliya Ibarra MD [address] [place] [address] Social History Tobacco Use Types [...] encounter Miscellaneous Notes * Telephone Encounter - Yoselin Vázquez - 07/27/2021 9:31 AM CST JOSE G: 04/25/2021 NOV: 10/29/2021 ERTY INSURANCE INSPECTOR documented in this encounter Plan of Treatment Upcoming Encounters Date Type Department Care Team (Late st Contact Info) Description 07/12/2024 2:30 PM PROPERTY INSURANCE INSPECTOR Office Visit [facility] Oncology and Hematology - Oscar [address] [facility] [address] [place] [address] Ovidio Nolen MD [address] [facility] [address] [place] [address] documented as of this encounter Visit Diagnoses Not on filedocumented in this encounter Care Teams Jewelry Bearing Maker Relationship Specialty [place] [address] [facility] [address] [place] [address] PCP - General Internal Medicine 08/14/18 documented as of this encounter
--- OUTSIDE RECORDS SUMMARY | 2024-05-26 13:13 | XMS_ITS | Encounter Summary ---
Author Organization [facility] [employer] [facility] Address [address] [place] [address] Care Team Providers Care Frame Bander Name Role Phone Theresa Camargo MD Primary Care Provider [phone] Encounter Details Date Type Department Care Team (Late Contact Info) Description 09/18/2023 Abstract [facility] Oncology and Hematology [address] [place] [address] Ovidio Nolen MD [facility] [employer] [address] [place] [address] Social History Tobacco Use Types Packs/Day [...] (Late Contact Info) Description 07/12/2024 2:30 PM ASSISTANT SALES CENTER MANAGER Office Visit [facility] Oncology and Hematology [facility] [address] [place] [address] Ovidio Nolen MD [address] [address] [place] [address] documented as of this encounter Visit Diagnoses Not on filedocumented in this encounter Care Teams Frame Bander Relationship Specialty [place] [address] [address] PCP - General Internal Medicine 08/14/18 documented as of this encounter
--- OUTSIDE RECORDS SUMMARY | 2024-05-26 13:13 | XMS_ITS | Encounter Summary ---
Author Organization [facility] [facility] Address [address] [place] [address] Care Team Providers Care Manager Laundry Name Role Phone Theresa Camargo MD Primary Care Provider [phone] Encounter Details Date Type Department Care Team (Late Contact Info) Description 06/12/2022 Orders Only [facility] Oncology and Hematology [address] [place] [address] Teagan Montgomery Osteoporosis, unspecified osteoporosis [...] Coronavirus/COVID-19? No / Unsure 06/06/2022 1:18 PM CARPENTER MOLD documented as of this encounter Plan of Treatment Upcoming Encounters Date Type Department Care Team (Late Contact Info) Description 07/12/2024 2:30 PM CARPENTER MOLD Office Visit [facility] Oncology and Hematology [address] [place] [address] Ovidio Nolen MD [address] [facility] [address] [place] [address] documented as of this encounter Visit Diagnoses Diagnosis Osteoporosis, unspecified osteoporosis type, unspecified pathological fracture presence documented in this encounter Care Teams Manager Laundry Relationship Specialty [place] [address] [facility] [address] [place] [address] PCP - General Internal Medicine 08/14/18 documented as of this encounter
--- OUTSIDE RECORDS SUMMARY | 2024-05-26 13:13 | XMS_ITS | Encounter Summary ---
Author Organization [facility] Address [address] [place] [address] Care Team Providers Care Park Attendant Name Role Phone Theresa Camargo MD Primary Care Provider [phone] Encounter Details Date Type Department Care Team [...] st Contact Info) Description 07/12/2024 2:[address] SUPERVISOR Office Visit [facility] Oncology and Hematology - Oscar [address] [facility] [address] [place] [address] Ovidio Nolen MD [address] [facility] [address] [place] [address] documented as of this encounter Visit Diagnoses Not on filedocumented in this encounter Care Teams Park Attendant Relationship Specialty [place] [address] [facility] [address] [place] [address] PCP - General Internal Medicine 08/14/18 documented as of this encounter
--- OUTSIDE RECORDS SUMMARY | 2024-05-26 13:13 | XMS_ITS | Encounter Summary ---
Author Organization [facility] Address [address] [facility] [address]: Epic Prelude ADT [place] [address] Care Team Providers Care Student Financial Services Counselor Name Role Phone Theresa Camargo MD Primary Care Provider [phone] Encounter Details Date Type Department Care Team (Latest Contact Info) Description 06/06/2022 Travel Social History Tobacco Use Types Packs/Day [...] Coronavirus/COVID-19? No / Unsure 06/06/2022 1:18 PM MILLROOM SUPERVISOR documented as of this encounter Plan of Treatment Upcoming Encounters Date Type Department Care Team (Late st Contact Info) Description 07/12/2024 2:30 PM MILLROOM SUPERVISOR Office Visit [facility] Oncology and Hematology - [facility] [address] [facility] [address] [place] [address] Ovidio Nolen MD [address] [facility] [address] [place] [address] documented as of this encounter Visit Diagnoses Not on filedocumented in this encounter Care Teams Student Financial Services Counselor Relationship Specialty [place] [address] [address] PCP - General Internal Medicine 08/14/18 documented as of this encounter
--- OUTSIDE RECORDS SUMMARY | 2024-05-26 13:13 | XMS_ITS | Encounter Summary ---
Author Organization [facility] [employer] [facility] Address [address] [place] [address] Care Team Providers Care Tumbler Plater Name Role Phone Theresa Camargo MD Primary Care Provider [phone] Reason for Visit * Reason Onset Date Comments lab work question 09/18/2023 Encounter Details Date Type Department Care Team (Late st Contact Info) Description 09/18/2023 Telephone [facility] Oncology and Hematology - [place] [address] [place] [address] [facility] [address] [place] [address] Ovidio Nolen MD [address] [facility] [address] [place] [address] lab work question Social History Tobacco Use Types Packs/Day Years [...] encounter Miscellaneous Notes * Telephone Encounter - Dawna De Leontany - 09/18/2023 10:29 AM CDT Patients daughter Ange called. She asked about her mothers blood work that needed to be done before her appointment. She asked if the longterm could do the blood work or if they had to get it done at our office I informed Ange she can take the blood work anywhere to get done as long as we getthe results. She stated understanding. documented in this encounter Plan of Treatment Upcoming Encounters Date Type Department Care Team (Late st Contact Info) Description 07/12/2024 2:30 PM JUKEBOX ROUTEMAN Office Visit [facility] Oncology and Hematology - Oscar [address] [facility] [address] [place] [address] Ovidio Nolen MD [address] [facility] [address] [place] [address] documented as of this encounter Visit Diagnoses Not on filedocumented in this encounter Care Teams Tumbler Plater Relationship Specialty [place] [address] [facility] [address] [place] [address] PCP - General Internal Medicine 08/14/18 documented as of this encounter
--- OUTSIDE RECORDS SUMMARY | 2024-05-26 13:13 | XMS_ITS | Encounter Summary ---
Author Organization [facility] Address [address] [place] [address] Care Team Providers Care Health Education Teacher Name Role Phone Theresa Camargo MD Primary Care Provider [phone] Reason for Visit * Reason Onset Date Comments Results 05/04/2021 Encounter Details Date Type Department Care Team (Late st Contact Info) Description 05/04/2021 Telephone [facility] Endocrinology [address] [place] [address] Yuliya Ibarra MD [address] [place] [address] Results Social History Tobacco Use Types Packs/Day [...] COVID-19? Unable to assess 04/25/2021 1:27 PM ORTHOPEDICS PEDIATRIC PHYSICIAN documented as of this encounter Miscellaneous Notes * Telephone Encounter - Nivia Shea - 05/04/2021 3:31 PM CST Patient's daughter informed per note below. PCP is addressing UTI and antibiotic Rx. Med list updated, does not need refills at this time. Repeat labs ordered 6 weeks. OPEDICS PEDIATRIC PHYSICIAN * Telephone Encounter - Nivia Shea - 05/04/2021 3:28 PM CST ----- Message from Yuliya Ibarra MD sent at 05/03/2021 4:44 PM ORTHOPEDICS PEDIATRIC PHYSICIAN ----- Good HgA1C TsH is slightly low, continue the same Levothyroxine dose and take half a tablet on Sundays. Repeat TSH in 6 weeks. UA is showing a urinary tract infection, but I did not order that. Who was the doctor to order? Is she on antibiotics? OPEDICS PEDIATRIC PHYSICIAN documented in this encounter Plan of Treatment Upcoming Encounters Date Type Department Care Team (Late st Contact Info) Description 07/12/2024 2:30 PM ORTHOPEDICS PEDIATRIC PHYSICIAN Office Visit [facility] Oncology and Hematology - [place] [address] [facility] [address] [place] [address] Ovidio Nolen MD [address] [facility] [address] [place] [address] documented as of this encounter Visit Diagnoses Diagnosis Type 2 diabetes mellitus without complication, without long-term current use of insulin- Primary Primary hypothyroidism Unspecified hypothyroidism documented in this encounter Care Teams Health Education Teacher Relationship Specialty Start [place] [address] [facility] [address] [place] [address] PCP - General Internal Medicine 08/14/18 documented as of this encounter
--- OUTSIDE RECORDS SUMMARY | 2024-05-26 13:13 | XMS_ITS | Encounter Summary ---
Author Organization [facility] Address [address] [place] [address] Care Team Providers Care Descriptive Catalog Librarian Name Role Phone Theresa Camargo MD Primary Care Provider [phone] Encounter Details Date Type Department Care Team (Late st Contact Info) Description 09/23/2023 External Device Data STL ABSTRACTION Provider, Abstract [...] st Contact Info) Description 07/12/2024 2:30 PM ASSISTANT IMPORT MANAGER Office Visit [facility] Oncology and Hematology - Oscar [address] [facility] [address] [place] [address] Ovidio Nolen MD [address] [facility] [address] [place] [address] documented as of this encounter Visit Diagnoses Not on filedocumented in this encounter Care Teams Descriptive Catalog Librarian Relationship Specialty [place] [address] [facility] [address] [place] [address] PCP - General Internal Medicine 08/14/18 documented as of this encounter
--- OUTSIDE RECORDS SUMMARY | 2024-05-26 13:13 | XMS_ITS | Encounter Summary ---
Author Organization [facility] Address [address] [place] [address] Care Team Providers Care Excel Developer Name Role Phone Theresa Camargo MD Primary Care Provider [phone] Encounter Details Date Type Department Care Team [...] st Contact Info) Description 07/12/2024 2:30 PM GOLD AND SILVER ASSAYER Office Visit [facility] Oncology and Hematology - Oscar [address] [facility] [address] [place] [address] Ovidio Nolen MD [address] [facility] [address] [place] [address] documented as of this encounter Visit Diagnoses Not on filedocumented in this encounter Care Teams Excel Developer Relationship Specialty Start [place] [address] [facility] [address] [place] [address] PCP - General Internal Medicine 08/14/18 documented as of this encounter
--- OUTSIDE RECORDS SUMMARY | 2024-05-26 13:13 | XMS_ITS | Clinical Summary ---
Author Organization [facility] Address [address] [place] [address] Phone Care Team Providers Care Apron Worker Name Role Phone Theresa Camargo MD Primary Care Provider [phone] Allergies Active Allergy Reactions Criticality Noted Date Comments Diltiazem Unknown 09/10/2010 Donepezil Unknown 09/10/2010 Fluticasone Propion-Salmeterol Unknown 09/10 Medications Medication Sig Dispensed Refills Start Date End Date Status esomeprazole (NEXIUM) 40 mg Oral CpDR Take 40 mg by mouth daily before breakfast. Active amitriptyline (ELAVIL) 50 mg Oral tablet Take 50 mg by mouth daily at bedtime. Active rosuvastatin (CRESTOR) 10 mg Oral tablet Take 10 mg by mouth daily at bedtime. Active cyanocobalamin (VITAMIN B-12) 1,000 mcg Oral Tab Take 1,000 mcg by mouth daily. Active multivitamin (DAILY-BRYON) Oral tabletIndications: instructed to stop prior to surgery Take 1 Tab by mouth daily. Indications: instructed to stop prior to surgery Active lancets (FREESTYLE LANCETS) 28 gauge 100 Each by [facility]Non-Drug; Combo Route) route daily. Dx code 250.02 100 Each 6 07/13/2013 Active potassium chloride (KLOR-CON) 10 mEq Extended Release tablet TAKE 4 TABLETS DAILY WITH BREAKFAST 360 Tablet 04/02/2017 Active metOLazone (ZAROXOLYN) 2.5 mg tablet Take 2.5 mg by mouth every 7 days. Active albuterol HFA 90 mcg inhaler Take 2 Puffs by mouth. Active anastrozole (ARIMIDEX) 1 mg tablet Take 1 mg by mouth. 01/18/2018 Activ e aspirin-calcium carbonate 81 mg-300 mg calcium(777 mg) Tablet Take 81 mg by mouth. Active Calcium Carbonate-Vit D3-Min 600 mg calcium- 400 unit Tablet Take 1 Tablet by mouth. 10/29/2017 Active linaclotide (LINZESS) 145 mcg capsule Take 145 mcg by mouth. 01/08/2018 Active polyethylene glycol (MIRALAX) 17 gram Powder in Packet Take 17 Grams by mouth. Active verapamil (VERELAN) 240 mg Sustained Release 24 hour capsule Take 240 mg by mouth. Active denosumab (PROLIA) 60 mg/mL Syringe Inject 60 mg by subcutaneous injection Every twentysix weeks. Active insulin glargine (Lantus Solostar U-100 Insulin) 100 unit/mL pen syringe 10 units SQ in am 15 mL 2 07/26/2020 Active levothyroxine 75 mcg tablet Take 1 tablet Friday-Friday, 1/2 tablet on Friday. Dose change 05/04/21 90 Tablet 1 05/04/2021 Active BD Maddi 2nd Gen Pen Needle 32 gauge x 5/32 Needle USE TO INJECT INSULIN ONCE DAILY 100 Each 3 06/22/2021 Active Invokana 100 mg TAKE 1 TABLET BY MOUTH EVERY DAY BEFORE BREAKFAST 90 Tablet 07/27/2021 Active glimepiride (AMARYL) 1 mg tabletIndications: Type 2 diabetes mellitus without complication, without long-term current use of insulin TAKE 2 TABLETS BY MOUTH WITH BREAKFAST AND LUNCH, AND 1 TABLET WITH DINNER 540 Tablet 07/30/2021 Active blood sugar diagnostic (FreeStyle Lite Strips) Strip TEST BLOOD SUGARS THREE TIMES A DAY DX E11.9 300 Strip 09/23/2021 Active Eliquis 5 mg tablet 05/05/2022 Active bisacodyL (DULCOLAX) 10 mg Suppository Insert 10 mg by rectum 1 time daily as needed. 05/30/2022 Active Cranberry Extract 425 mg Capsule Take 425 mg by mouth daily. Active furosemide (LASIX) 40 mg tablet 05/02/2022 Active HYDROcodone-acetam inophen (NORCO) 5-325 mg tablet 03/26/2022 Active lactulose (ENULOSE) 10 gram/15 mL 10 gram/15 mL solution 05/11/2022 Active metoclopramide HCl (REGLAN) 10 mg tablet 04/14/2022 Active nitroglycerin (NITROSTAT) 0.4 mg Tablet, Sublingual Place 0.4 mg under tongue every 5 minutes as needed. Active spironolactone (ALDACTONE) 25 mg tablet 05/17/2022 Active trospium (SANCTURA) 20 mg Tablet 03/20/2022 Active Januvia 100 mg Tablet 05/12/2022 Active acetaminophen (TYLENOL) 500 mg Capsule Take 1,000 mg by mouth every 6 hours as needed. Active busPIRone (BUSPAR) 5 mg tablet Take 5 mg by mouth 3 times daily. 11/02/2022 Active clobetasoL (TEMOVATE) 0.05 % Cream Apply to affected area 2 times daily. 05/21/2023 Active escitalopram oxalate (LEXAPRO) 10 mg tablet Take 10 mg by mouth daily. Active flecainide (TAMBOCOR) 50 mg Tablet Take 50 mg by mouth 2 times daily. 09/11/2020 Active hydrOXYzine HCL (ATARAX) 25 mg tablet Take 25 mg by mouth. 05/15/2023 Active ketoconazole (NIZORAL) 2 % Cream Apply to affected area daily. 05/21/2023 Active Active Problems Patient Care Coordination No te Formatting of this note migh t be different from the original. New pcp Dr Julian Payne Problem Noted Date Diagnosed Date Primary hypothyroidism 05/06/2018 Type 2 diabetes mellitus wit hout complication, without long-term current use of insulin 01/17/2017 Hypercalcemia 07/30/2013 Multiple thyroid nodules 05/06/2012 ssc, a&p, no sling 09/10/2010 Resolved Problems Problem Noted Date Diagnosed Date Resolved Date Diabetes mellitus type II, uncontrolled 07/30/2013 01/17/2017 Family History Medical History Relation Name Comments High Cholesterol Brother 1 Hypertension Brother 1 No Known Problems Daughter 1 No Known Problems Daughter 2 No Known Problems Daughter 3 Breast Cancer Mother Relation Name Status Comments Brother 1 Alive Brother 2 Daughter 1 Alive Daughter 2 Alive Daughter 3 Alive Father Mother Social History Tobacco Use Types [...] Sign Reading Time Taken Comments Blood Pressure 142/62 01/07/2024 1:47 PM CDT Pulse 74 01/07/2024 1:44 PM CDT Temperature 36.5 ??C (97.7 ??F) 01/07/2024 1:44 PM CD T Respiratory Rate 16 01/07/2024 1:44 PM CDT Oxygen Saturation 93% 01/07/2024 1:44 PM CDT Inhaled Oxygen Concentration - - Weight 72.6 kg (160 lb) 01/07/2024 1:44 PM CDT Height 165.1 cm (5' 5 ) 06/06/2022 1:30 PM LADLE PATCHER Body Mass Index 26.63 06/06/2022 1:30 PM LADLE PATCHER Plan of Treatment Upcoming Encounters Date Type Department Care Team (Late st Contact Info) Description 07/12/2024 2:30 PM LADLE PATCHER Office Visit [facility] Oncology and Hematology - [place] [address] [facility] [address] [place] [address] Ovidio Nolen MD [address] [facility] [address] [place] [address] Health Maintenance Due Date Last Done Comments ZOSTER VACCINE (2 of 3) 10/19/2007 08/24/2007 RSV VACCINE (60+ or ) (1 - 1-dose 75+ series) 2013 LDL CHOLESTEROL ANNUAL 12/12/2017 7, 08/18/2015, 04/19/2014 (Previously completed), Additional history exists DIABETES MICROALBUMIN ANNUAL SCREEN 05/02/2018 05/02/2017, 01/19/2016, 08/18/2015, Additional history exists DIABETES ANNUAL FOOT EXAM 07/26/20212020, 06/09/2020, 05/05/2020, Additional history exists DIABETES HBA1C Q 6 MONTHS 02/15/20222021, 04/27/2021, 12/13/2020, Additional history exists DIABETES ANNUAL RETINAL EXAM 10/22/202210/2021, 10/22/2021, 02/15/2021, Additional history exists INFLUENZA VACCINE (#1) 2023 0, 03/05/2019, 03/31/2018, Additional history exists COVID-19 Vaccine (3 - 2023-2 5 season) 2024 07/07/2020, 06/13/2020 DTAP/TDAP/TD VACCINES (2 - T d or Tdap) 08/29/2025 08/30/2015 PNEUMOCOCCAL VACCINE 65+ YEARS Completed 0 02/16/2016, 12/04/2010, 11/29/2005 OSTEOPOROSIS SCREENING Completed , 06/06/2020, 10/29/2017, Additional history exists COLORECTAL SCREENING Discontinued 12/27/2020, 12/27/2020, 02/17/2019, Additional history exists Colorectal Cancer Screening Discontinued Flex Sig/CT Colonography Q 5 years Discontinued 12/27/2020, 12/27/2020 FIT-DNA Q 3 years Discontinued FIT/FOBT Q 1 year Discontinued Medical Devices Implanted Type Area Cloth Opener Hand Device Identifier Shelf Expiration Date Model / Serial / Lot Log [id number] - Bladder Slings And Tapes - 1 - Sling Desara System [id number] Implanted:Qty: 1 on 09/10/2010 at [facility] Sling N/A: Vagina [employer] 05/17/2013 [id number] / / [id number] Procedures Procedure Name Priority Date/Time Associated Diagnosis Comments XR DEXA BONE DENSITY AXIAL 1 OR MORE SITES Routine 06/06/2020 10:40 AM LADLE PATCHER Hyperparathyroidism, unspecified Subclinical hypothyroidism HEMOGLOBIN A1C Routine 05/05/2020 1:54 PM LADLE PATCHER Type 2 diabetes mellitus not at goal MICROALBUMIN/CREATI NINE RATIO, RANDOM UR Routine 05/02/2017 12:38 PM LADLE PATCHER Type 2 diabetes mellitus without complication, without long-term current use of insulin LIPID PANEL Routine 12/12/2016 4:14 AM CDT Type 2 diabetes mellitus without complication, with long-term current use of insulin from Last 3 Months or Most Recently Relevant to Health Maintenance Results * XR DEXA BONE DENSITY AXIAL 1 OR MORE SITES (06/06/2020 10:40 AM LADLE PATCHER) Anatomical Region Laterality Modality Digital Radiogra phy 06/06/2020 11:0 3 AM LADLE PATCHER Impressions 06/06/2020 11:14 AM LADLE PATCHER IMPRESSION: This is a summary page. Please refer to the complete detailed report found in the Imaging Section of the [facility] EMR. Osteopenia. Lumbar Spine: T-Score: ??-1.5 Left Femoral Neck: T-Score: ??-1.2 Left Total Femur: T-Score: ??-0.1 Right Femoral Neck: T-Score: ??-1.1 Right Total Femur: T-Score: ??-0.2 Left Forearm: T-Score: ??-1.5 Statistical change: Significant decrease of 7.7 % in left femoral neck BMD when compared to the study performed in 2013. Significant decrease of 12.4 % in right femoral neck BMD when compared to the study performed in 2013. Significant decrease of all 0.5 % in left forearm BMD when compared to the study performed in 2013. FRAX FRACTURE RISK ASSESSMENT: (Only valid Between 40-89 Years Of Age) Risk factors: Secondary osteoporosis. 10 Year Probability Of Fracture Major Osteoporotic: 12.1 % Hip: 2.7 % Comparison population: [place], Race: White A major osteoporotic fracture is defined as a fracture of the spine, forearm, hip or shoulder. Definitions: Normal: T-score above -1.0 Osteopenia T-score less than -1.0 and above -2.5 Osteoporosis: T-score <= -2.5 Follow-up Recommendations: ?? Patients without high risk factors for osteoporosis ? T-score -1.0 to -1.5 - Consider repeat BMD in 5-10 years ? T-score -1.5 to - 2.0 - Consider repeat BMD in 3-5 years ? T-score -2.0 to - 2.5 - Consider repeat BMD every 2 years ?? Patients on treatment for osteoporosis ? 1-2 years after initiation of treatment and every 2 years [address] Emile Smart MD DICTATION LOCATION: 06/06/2020 11:14 AM LADLE PATCHER EXAMINATION: ??BONE DENSITY STUDY (DXA) DATE: 06/06/2020 10:40 AM HISTORY: 79 years Female. Postmenopausal. PROCEDURE: Planar images of the lumbar spine, hip(s) and forearm(s) using a LUNAR DEXA scanner for bone mineral density determination (BMD). ?? Prior bone density: 05/07/2013 FINDINGS: Lumbar Spine (L1-L2): T-Score: ??-1.5 ?0.996 g/sq cm Prior: 1.008 g/sq cm Left Femoral Neck: T-Score: ??-1.2 ?0.871 g/sq cm Prior: 0.944 g/sq cm Left Total Femur: T-Score: ??-0.1 Right Femoral Neck: T-Score: ??-1.1 ?0.882 g/sq cm Prior: 1.007 g/sq cm Right Total Femur: T-Score: ??-0.2 Left 33% Radius: T-Score: ??-1.5 ?0.746 g/sq cm Prior: 0.853 g/sq cm INCIDENTAL FINDINGS: ??L3-L4 excluded because of statistical variation. Procedure Note Emile Smart MD - 06/06/2020 EXAMINATION: BONE DENSITY STUDY (DXA) DATE: 06/06/2020 10:40 AM HISTORY: 79 years Female. Postmenopausal. PROCEDURE: Planar images of the lumbar spine, hip(s) and forearm(s) using a UMicIt DEXA scanner for bone mineral density determination (BMD). Prior bone density: 05/07/2013 FINDINGS: Lumbar Spine (L1-L2): T-Score: -1.5 0.996 g/sq cm Prior: 1.008 g/sq cm Left Femoral Neck: T-Score: -1.2 0.871 g/sq cm Prior: 0.944 g/sq cm Left Total Femur: T-Score: -0.1 Right Femoral Neck: T-Score: -1.1 0.882 g/sq cm Prior: 1.007 g/sq cm Right Total Femur: T-Score: -0.2 Left 33% Radius: T-Score: -1.5 0.746 g/sq cm Prior: 0.853 g/sq cm INCIDENTAL FINDINGS: L3-L4 excluded because of statistical variation. IMPRESSION: This is a summary page. Please refer to the complete detailed report found in the Imaging Section of the [facility] EMR. Osteopenia. Lumbar Spine: T-Score: -1.5 Left Femoral Neck: T-Score: -1.2 Left Total Femur: T-Score: -0.1 Right Femoral Neck: T-Score: -1.1 Right Total Femur: T-Score: -0.2 Left Forearm: T-Score: -1.5 Statistical change: Significant decrease of 7.7 % in left femoral neck BMD when compared to the study performed in 2013. Significant decrease of 12.4 % in right femoral neck BMD when compared to the study performed in 2013. Significant decrease of all 0.5 % in left forearm BMD when compared to the study performed in 2013. FRAX FRACTURE RISK ASSESSMENT: (Only valid Between 40-89 Years Of Age) Risk factors: Secondary osteoporosis. 10 Year Probability Of Fracture Major Osteoporotic: 12.1 % Hip: 2.7 % Comparison population: [place], Race: White A major osteoporotic fracture is defined as a fracture of the spine, forearm, hip or shoulder. Definitions: Normal: T-score above -1.0 Osteopenia T-score less than -1.0 and above -2.5 Osteoporosis: T-score <= -2.5 Follow-up Recommendations: Patients without high risk factors for osteoporosis T-score -1.0 to -1.5 - Consider repeat BMD in 5-10 years T-score -1.5 to - 2.0 - Consider repeat BMD in 3-5 years T-score -2.0 to - 2.5 - Consider repeat BMD every 2 years Patients on treatment for osteoporosis 1-2 years after initiation of treatment and every 2 years thereafter D[address] by Dr. Emile Smart MD DICTATION LOCATION: 1 Yuliya Ibarra MD DIAGNOSTIC IMAGING O RDERABLES * (ABNORMAL) HEMOGLOBIN A1C (05/05/2020 1:54 PM LADLE PATCHER) HEMOGLOBIN A1C 7.1(H) <5.7 % of total Hgb [facility] Comment: For someone without known diabetes, a hemoglobin A1c value of 6.5% or greater indicates that they may have diabetes and this should be confirmed with a follow-up test. For someone with known diabetes, a value <7% indicates that their diabetes is well controlled and a value greater than or equal to 7% indicates suboptimal control. A1c targets should be individualized based on duration of diabetes, age, comorbid conditions, and other considerations. Currently, no consensus exists regarding use of hemoglobin A1c for diagnosis of diabetes for children. Test Performed at: [facility] [id number] [place] [address] ??[id number] Elie Hamlin D.O., MPH Blood 05/05/2020 1:54 PM LADLE PATCHER Yuliya Ibarra MD CHEMISTRY ORDERABLES [employer] [facility] [address] [place] [address] * MICROALBUMIN/CREATININE RATIO, RANDOM UR (05/02/2017 12:38 PM LADLE PATCHER) MICROALBUMIN, URINE <1.2 No Reference Range mg/dL 05/02/2017 2:23 PM LADLE PATCHER [employer] [facility] CREATININE, URINE 59.8 29.0 - 226.0 mg/dL 05/02/2017 2:23 PM LADLE PATCHER [employer] [facility] Comment: Reference Range varies with fluid intake and diet. MICROALBUMIN/C REAT RATIO, UR <20.1 <25.0 mg/g 05/02/2017 2:23 PM LADLE PATCHER [employer] [facility] Urine URINE SPECIMEN OBTAINED BY CLEAN CATCH PROCEDURE / Unknown Collection / Unknown 05/02/2017 12:38 PM LADLE PATCHER 05/02/2017 1:18 PM LADLE PATCHER Narrative [facility] [facility] - 05/02/2017 2:23 PM LADLE PATCHER Condition ? Microalbumin/Creat ratio Normal Males ? <17 Normal Females ? <25 Microalbuminuria Males ?17-299 Microalbuminuria Females ?25-299 Overt proteinuria ? >=300 Yuliya Ibarra MD URINE ORDERABLES Performing Organization Address City/[facility] Co de Phone Number [facility]# [id number] [address] [place] [address] * (ABNORMAL) LIPID PANEL (12/12/2016 4:14 AM CDT) CHOLESTEROL 97(L) 125 - 200 mg/dL [facility] HDL 33(L) > OR = 46 mg/dL [employer] [facility] TRIGLYCERIDE 138 <150 mg/dL [facility] LDL CALCULATED 36 <130 mg/dL (calc) [facility] Comment: Desirable range <100 mg/dL for patients with CHD or diabetes and <70 mg/dL for diabetic patients with known heart disease. CHOL/HDL RATIO 2.9 < OR = 5.0 (calc) [facility] TOTAL NON-HDL CHOL(LDL+VLDL) 64 mg/dL (calc) [facility] Comment: Target for non-HDL cholesterol is 30 mg/dL higher than LDL cholesterol target. Test Performed at: [employer] [address] [place], [place] ??[id number] ELIE HAMLIN DO,MPH Blood 12/12/2016 4:14 AM CDT Yuliya Ibarra MD CHEMISTRY ORDERABLES Performing Organization Address City/[facility] Co de Phone Number [facility] [employer] [address] [place] [address] from Last 3 Months or Most Recently Relevant to Health Maintenance Advance Directives For more information, please contact: [phone] Documents on File Type Date Recorded Patient Imaging Nurse Expl anation Advance Directive POA 11/14/2014 10:49 AM * Full Code (Latest Code Status on File) Date Activated Date Inactivated Comments 09/10/2010 6:07 PM 09/11/2010 5:58 PM * Full Code Date Activated Date Inactivated Comments 09/10/2010 11:59 AM 09/10/2010 6:07 PM * Full Code Date Activated Date Inactivated Comments 09/10/2010 10:29 AM 09/10/2010 11:59 AM Care Teams Apron Worker Relationship Specialty [place] [id number] [address] PCP - General Internal Medicine 08/14/18
--- OUTSIDE RECORDS SUMMARY | 2024-05-26 13:13 | XMS_ITS | Encounter Summary ---
Author Organization [facility] Address [address] [place] [address] Care Team Providers Care Chassis Wirer Name Role Phone Theresa Camargo MD Primary Care Provider [phone] Reason for Visit * Reason Comments Medication Refill Encounter Details Date Type Department Care Team (Late st Contact Info) Description 07/30/2021 Refill [facility] Endocrinology [address] [place] [address] Yuliya Ibarra MD [address] [place] [address] Type 2 diabetes mellitus without complication, without long-term current use of insulin Social History Tobacco Use Types Packs/Day Years [...] * Telephone Encounter - Yoselin Vázquez - 07/30/2021 9:15 AM CDT JOSE G: 04/25/2021 NOV: 10/29/2021 documented in this encounter Plan of Treatment Upcoming Encounters Date Type Department Care Team (Late st Contact Info) Description 07/12/2024 2:30 PM DOCUMENTATION BILLING CLERK Office Visit [facility] Oncology and Hematology - [place] [address] [facility] [address] [place] [address] Ovidio Nolen MD [address] [facility] [address] [place] [address] documented as of this encounter Visit Diagnoses Diagnosis Type 2 diabetes mellitus without complication, without long-term current use of insulin documented in this encounter Care Teams Chassis Wirer Relationship Specialty Start [place] [address] [facility] [address] [place] [address] PCP - General Internal Medicine 08/14/18 documented as of this encounter
--- OUTSIDE RECORDS SUMMARY | 2024-05-26 13:13 | XMS_ITS | Encounter Summary ---
Author Organization [facility] Address [address] [place] [address] Care Team Providers Care Aids Social Worker Name Role Phone Theresa Camargo MD Primary Care Provider [phone] Encounter Details Date Type Department Care Team [...] st Contact Info) Description 07/12/2024 2:30 PM INSTRUCTIONAL INTERVENTIONIST Office Visit [facility] Oncology and Hematology - [place] [address] [facility] [address] [place] [address] Ovidio Nolen MD [address] [facility] [address] [place] [address] documented as of this encounter Visit Diagnoses Not on filedocumented in this encounter Care Teams Aids Social Worker Relationship Specialty Start [place] [address] [facility] [address] [place] [address] PCP - General Internal Medicine 08/14/18 documented as of this encounter
--- OUTSIDE RECORDS SUMMARY | 2024-05-26 13:13 | XMS_ITS | Encounter Summary ---
Author Organization [facility] Address [address] [place] [address] Care Team Providers Care It Corporate Recruiter Name Role Phone Theresa Camargo MD Primary Care Provider [phone] Reason for Visit * Reason Comments Medication Refill Encounter Details Date Type Department Care Team (Late Contact Info) Description 09/23/2021 Refill [facility] Endocrinology [address] [place] [address] Yuliya Ibarra MD [address] [place] [address] Social History Tobacco Use Types [...] (Late Contact Info) Description 07/12/2024 2:30 PM FACILITATOR Office Visit [facility] Oncology and Hematology - [place] [address] [place] [address] Ovidio Nolen MD [address] [facility] [address] [place] [address] documented as of this encounter Visit Diagnoses Not on filedocumented in this encounter Care Teams It Corporate Recruiter Relationship Specialty Start [place] [id number] [address] PCP - General Internal Medicine 08/14/18 documented as of this encounter
--- OUTSIDE RECORDS SUMMARY | 2024-05-26 13:13 | XMS_ITS | Encounter Summary ---
Author Organization [facility] Address [address] [place] [address] Care Team Providers Care Irrigator Name Role Phone Theresa Camargo MD Primary Care Provider [phone] Encounter Details Date Type Department Care Team (Late st Contact Info) Description 05/20/2023 External Device Data STL ABSTRACTION Provider, Abstract [...] st Contact Info) Description 07/12/2024 2:30 PM NETWORK CONSULTANT Office Visit [facility] Oncology and Hematology - [place] [address] [facility] [address] [place] [address] Ovidio Nolen MD [address] [facility] [address] [place] [address] documented as of this encounter Visit Diagnoses Not on filedocumented in this encounter Care Teams Irrigator Relationship Specialty Start [place] [address] [facility] [address] [place] [address] PCP - General Internal Medicine 08/14/18 documented as of this encounter
--- OUTSIDE RECORDS SUMMARY | 2024-05-26 13:13 | XMS_ITS | Encounter Summary ---
Author Organization [facility] [employer] [facility] Address [address] [place] [address] Care Team Providers Care System Controller Name Role Phone Theresa Camargo MD Primary Care Provider [phone] Encounter Details Date Type Department Care Team (Late st Contact Info) Description 09/24/2023 Orders Only [facility] Oncology and Hematology [facility] [employer] [address] [place] [address] Ovidio Nolen MD [facility] [employer] [address] [place] [address] Social History Tobacco Use Types Packs/Day [...] (Late Contact Info) Description 07/12/2024 2:30 PM OUTBOUND SALES PROFESSIONAL Office Visit [facility] Oncology and Hematology [facility] [address] [address] [place] [address] Ovidio Nolen MD [address] [employer] [address] [place] [address] documented as of this encounter Procedures Procedure Name Priority Date/Time Associated Diagnosis Comments COMPREHENSIVE METABOLIC PANEL Routine 09/24/2023 1:51 PM CDT documented in this encounter Results * COMPREHENSIVE METABOLIC PANEL (09/24/2023 1:51 PM CDT) Blood Ovidio Nolen MD CHEMISTRY ORDERABLES documented in this encounter Visit Diagnoses Not on filedocumented in this encounter Care Teams System Controller Relationship Specialty Start [place] [address] [address] PCP - General Internal Medicine 08/14/18 documented as of this encounter
--- OUTSIDE RECORDS SUMMARY | 2024-05-26 13:13 | XMS_ITS | Encounter Summary ---
Author Organization [facility] [employer] [facility] Address [address] [place] [address] Care Team Providers Care Wheel Shop Supervisor Name Role Phone Theresa Camargo MD Primary Care Provider [phone] Reason for Visit * Reason Comments Cancer Follow Up Encounter Details Date Type Department Care Team (Late st Contact Info) Description 01/07/2024 1:15 PM CDT Office Visit [facility] Oncology and Hematology - [place] [address] [place] [address] [facility] [address] [place] [address] Ovidio Nolen MD [address] [facility] [address] [place] [address] Malignant neoplasm of left breast in female, estrogen receptor positive, unspecified site of breast (Primary Dx); Chronic anemia Social History Tobacco Use Types Packs/Day Years [...] (160 lb) 01/07/2024 1:44 PM CDT Height - - Body Mass Index 26.63 06/06/2022 1:30 PM POLITICAL ANALYST documented in this encounter Progress Notes * Ovidio Nolen MD - 01/07/2024 2:18 PM CDT HEMATOLOGY / ONCOLOGY PROGRESS NOTE Patient Identification: Name: Perla Leon Age: 83 y.o. 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 Allsurgical margins were negative. [place] lymph node biopsy done on September 08, 2017 showed 2 lymph node negative for tumor involvement. ER/CA was positive. Leukocytosis Microcytic anemia CURRENT TREATMENT Anastrozole 1 mg daily started September 2017 Ferrous sulfate 65 mg twice daily TREATMENT HISTORY SUBJECTIVE Given to the office for follow-up visit. She denies any night sweats fevers and chills. No new lumps bumps or lymphadenopathy. She was diagnosed with COVID infection about 3 weeks ago but now has recovered. No other new complaints. Review of system Constitutional: Patient did not mention fevers, sweats, denies any tiredness and fatigue HEENT: Patient did not mention sinus congestion, [...] dizziness Skin: No lumps, bumps or rashes. 12 point review of system was reviewed Objective: Vital signs in last 24 hours: [...] No lymphadenopathy Neuro: No obvious focal deficit Bilateral breast examination showed no masses and lymphadenopathy Exam as above PATH LABS Labs from August 08 showed WBC 16.6 hemoglobin 9.7 MCV 62 platelet 318 creatinine 0.5 CA 15-3 33 Labs from August 19 showed LDH 177 vitamin B12 511 iron 137 saturation 35% ferritin 28 sedimentation rate 3 C-reactive protein 0.5 Labs from December 26 showed WBC 15.3 hemoglobin 13.6 platelet 262,000 creatinine 0.6 neutrophils 64%lymphocyte 10% monocyte 21% CA 15-3 34 Assessment: Plan: Patient Active Problem List Diagnosis [...] 2 with DCIS. Allsurgical margins were negative. [place] lymph node biopsy done on September 08, 2017 showed 2 lymph node negative for tumor involvement. ER/CA was positive. There is no evidence of relapse of disease on my examination. Tumor marker slightly elevated likelysecondary to inflammation but is stable. We will discontinue anastrozole since it has been more than 6 years. Follow-up with me in 6 months. Patient does not want any further mammograms. Reactive leukocytosis. Flow cytometric analysis showed relative increased monocytes likely secondary to infection and inflammation. No need for bone marrow biopsy. Repeat labs showed improvement in the monocyte counts. She is not anemic anymore. Anemia. Hemoglobin normal. Continue oral iron twice a day. Osteoporosis. She will continue Reclast on a yearly basis with the next injection due September 2024. 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 Patient has suprapubic catheter and that will be managed by the urology. 01/07/2024 Ovidio Nolen MD documented in this encounter Plan of Treatment Upcoming Encounters Date Type Department Care Team (Late st Contact Info) Description 07/12/2024 2:30 PM POLITICAL ANALYST Office Visit [facility] Oncology and Hematology [facility] [address] [facility] [address] [place] [address] Ovidio Nolen MD [address] [facility] [address] [place] [address] Scheduled Orders Name Type Priority Associated Diagnoses Orde r Schedule CBC WITH DIFFERENTIAL Lab Stat Malignant neoplasm of left breast in female, estrogen receptor positive, unspecified site of breast Expected: 07/09/2024, Expires: 01/06/2025 CANCER ANTIGEN 15-3 Lab Routine Malignant neoplasm of left breast in female, estrogen receptor positive, unspecified site of breast Expected: 07/09/2024, Expires: 01/06/2025 COMPREHENSIVE METABOLIC PANEL Lab Stat Malignant neoplasm of left breast in female, estrogen receptor positive, unspecified site of breast Expected: 07/09/2024, Expires: 01/06/2025 FERRITIN Lab Routine Chronic anemia Expected: 07/09/2024, Expires: 01/06/2025 IRON, TIBC, AND PERCENT SATURATION Lab Routine Chronic anemia Expected: 07/09/2024, Expires: 01/06/2025 documented as of this encounter Visit Diagnoses Diagnosis Malignant neoplasm of left breast in female, estrogen receptor positive, unspecified site of breast- Primary Chronic anemia Anemia, unspecified documented in this encounter Care Teams Wheel Shop Supervisor Relationship Specialty [place] [address] [address] PCP - General Internal Medicine 08/14/18 documented as of this encounter
--- OUTSIDE RECORDS SUMMARY | 2024-05-26 13:13 | XMS_ITS | Encounter Summary ---
Author Organization [facility] [employer] [facility] Address [address] [place] [address] Care Team Providers Care Hvac Residential Service Technician Name Role Phone Theresa Camargo MD Primary Care Provider [phone] Encounter Details Date Type Department Care Team (Late st Contact Info) Description 09/03/2023 3:45 PM CDT Telephone Check Up [facility] Oncology and Hematology - [place] [address] [place] [address] [address] [place] [address] Ovidio Nolen MD [address] [facility] [address] [place] [address] Malignant neoplasm of left breast in female, estrogen receptor positive, unspecified site of breast (Primary Dx) Social History Tobacco Use Types [...] as of this encounter Progress Notes * Ovidio Nolen MD - 09/03/2023 4:41 PM CDT HEMATOLOGY / ONCOLOGY PROGRESS NOTE Patient Identification: Name: Perla Leon Age: 82 y.o. 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 Allsurgical margins were negative. [place] lymph node biopsy done on September 08, 2017 showed 2 lymph node negative for tumor involvement. ER/SC was positive. Leukocytosis Microcytic anemia CURRENT TREATMENT Anastrozole 1 mg daily started September 2017 Ferrous sulfate 65 mg twice daily TREATMENT HISTORY SUBJECTIVE This is a audio visit to discuss the additional labs. Patient has no new symptoms. No fevers and chills. No bleeding and bruising. No other new complaints. Review of system [...] 24 hours: As per nursing note Exam: This is a audio visit PATH LABS Labs from August 08 showed WBC 16.6 hemoglobin 9.7 MCV 62 platelet 318 creatinine 0.5 CA 15-3 33 Labs from August 19 showed LDH 177 vitamin B12 511 iron 137 saturation 35% ferritin 28 sedimentation rate 3 C-reactive protein 0.5 Assessment: Plan: Patient Active Problem List Diagnosis [...] 2 with DCIS. Allsurgical margins were negative. [place] lymph node biopsy done on September 08, 2017 showed 2 lymph node negative for tumor involvement. ER/SC was positive. Labs noted. Tumor markers slightly elevated likely secondary to infection/inflammation. Patient refused to have any further mammograms. Continue anastrozole 1 mg daily which she has been taking since September 2017. Leukocytosis. Labs noted. Inflammatory markers are normal. Flow cytometric analysis showed relativeincreased monocyte 41%. This could be secondary to infection inflammation but there is a possibility of myeloproliferative disorders. I will continue to observe and see her back in 4 months. She is not a good candidate for bone marrow biopsy testing. Microcytic anemia. Iron B12 came back normal. Continue oral iron twice a day. Osteopenia/osteoporosis. Patient is on Prolia. 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 Follow-up in 4 months. TOBACCO COUNSELING She is not a tobacco/nicotine user. 09/03/2023 Ovidio Nolen MD This encounter was completed via audio-only two way synchronous communication. Patient's identity confirmed yes Patient gave verbal consent to have these services billed to their insurance and expressed understanding that co-insurance and deductible may apply: yes Time spent by the provider delivering the care documented in this encounter 25 minutes. documented in this encounter Plan of Treatment Upcoming Encounters Date Type Department Care Team (Late st Contact Info) Description 07/12/2024 2:30 PM LEATHER ETCHER Office Visit [facility] Oncology and Hematology - [place] [address] [place] [address] [facility] [address] [place] [address] Ovidio Nolen MD [address] [facility] [address] [place] [address] Scheduled Orders Name Type Priority Associated Diagnoses Orde r Schedule CBC WITH DIFFERENTIAL Lab Stat Malignant neoplasm of left breast in female, estrogen receptor positive, unspecified site of breast Expected: 12/24/2023, Expires: 09/02/2024 COMPREHENSIVE METABOLIC PANEL Lab Stat Malignant neoplasm of left breast in female, estrogen receptor positive, unspecified site of breast Expected: 12/24/2023, Expires: 09/02/2024 CANCER ANTIGEN 15-3 Lab Routine Malignant neoplasm of left breast in female, estrogen receptor positive, unspecified site of breast Expected: 12/24/2023, Expires: 09/02/2024 documented as of this encounter Visit Diagnoses Diagnosis Malignant neoplasm of left breast in female, estrogen receptor positive, unspecified site of breast- Primary documented in this encounter Care Teams Hvac Residential Service Technician Relationship Specialty [place] [address] [address] PCP - General Internal Medicine 08/14/18 documented as of this encounter
--- OUTSIDE RECORDS SUMMARY | 2024-05-26 13:14 | XMS_ITS | Encounter Summary ---
Author Organization [facility] Address [address] [place] [address] Care Team Providers Care Buttonholer Name Role Phone Theresa Camargo MD Primary Care Provider [phone] Reason for Visit * Reason Onset Date Comments Medication Refill 11/01/2019 Encounter Details Date Type Department Care Team (Late st Contact Info) Description 11/01/2019 Refill [facility] Endocrinology [address] [place] [address] Yuliya Ibarra MD [address] [place] [address] Social History Tobacco Use Types [...] have Coronavirus / COVID-19? No / Unsure 10/26/2019 8:31 AM CDT documented as of this encounter Miscellaneous Notes * Telephone Encounter - Celine Rudolph - 11/01/2019 1:48 PM CDT JOSE G: 05/24/2019 NOV: 11/15/2019 documented in this encounter Plan of Treatment Upcoming Encounters Date Type Department Care Team (Late st Contact Info) Description 07/12/2024 2:30 PM BRUSHER WARP Office Visit [facility]3] Oncology and Hematology - [place] [address] [facility] 200 [place] [address] Ovidio Nolen MD [address] [facility] [address] [place] [address] documented as of this encounter Visit Diagnoses Not on filedocumented in this encounter Care Teams Buttonholer Relationship Specialty [place] [address] [facility] [address] [place] [phone] PCP - General Internal Medicine 08/14/18 documented as of this encounter
--- OUTSIDE RECORDS SUMMARY | 2024-05-26 13:14 | XMS_ITS | Encounter Summary ---
Author Organization [facility] Address [address] [place] [address] Care Team Providers Care Mis Director Name Role Phone Theresa Camargo MD Primary Care Provider [phone] Encounter Details Date Type Department Care Team (Late st Contact Info) Description 04/04/2020 Orders Only [facility] Endocrinology [address] [place] [address] Yuliya Ibarra MD [address] [place] [address] Social History Tobacco Use Types [...] st Contact Info) Description 07/12/2024 2:30 PM KEY ACCOUNT EXECUTIVE Office Visit [facility] Oncology and Hematology - [place] [address] [facility] 200 [place] [address] Ovidio Nolen MD [address] [facility] [address] [place] [address] documented as of this encounter Procedures Procedure Name Priority Date/Time Associated Diagnosis Comments MISCELLANEOUS LAB TEST Routine 04/04/2020 documented in this encounter Results * MISCELLANEOUS LAB TEST (04/04/2020) Yuliya Ibarra MD [facility]LES [facility] documented in this encounter Visit Diagnoses Not on filedocumented in this encounter Care Teams Mis Director Relationship Specialty [place] [address] [address] PCP - General Internal Medicine 08/14/18 documented as of this encounter
--- OUTSIDE RECORDS SUMMARY | 2024-05-26 13:14 | XMS_ITS | Encounter Summary ---
Author Organization [facility] Address [address] [place] [address] Care Team Providers Care Head Of Music Name Role Phone Theresa Camargo MD Primary Care Provider [phone] Reason for Visit * Reason Onset Date Comments Results 11/16/2019 Encounter Details Date Type Department Care Team (Late st Contact Info) Description 11/16/2019 Telephone [facility] Endocrinology [address] [place] [address] Fernanda Kuhn MD [address] [place] [address] Results Social History Tobacco Use [...] have Coronavirus / COVID-19? No / Unsure 11/15/2019 11:48 AM CDT documented as of this encounter Miscellaneous Notes * Addendum Note - Fernanda Kuhn MD - 11/16/2019 3:30 PM CDTAddended by: FERNANDA KUHN on: 11/16/2019 03:30 PM Modules accepted: Orders * Addendum Note - Celine Jon - 11/16/2019 3:17 PM CDTAddended by: CELINE JON on: 11/16/2019 03:17 PM Modules accepted: Orders * Telephone Encounter - Celine Jon - 11/16/2019 3:08 PM CDT Spoke with patient, advised MD message regarding results. Patient voiced understanding, denies missing any doses. Orders placed pending MD signature. * Telephone Encounter - Celine Jon - 11/16/2019 11:54 AM CDT LVM for patient to call office back to discuss results. * Telephone Encounter - Celine Jon - 11/16/2019 11:54 AM CDT ----- Message from Fernanda Kuhn MD sent at 11/16/2019 11:11 AM CDT ----- Slightly higher HgA1C, but still acceptable. Needs to do her best with diet. TSH is on a high side. Has she been taking Levothyroxine 25 mcg daily for the last 6 weeks? If not, ok to resume. If yes, increase her dose to 50 mcg daily. Repeat TSH in 6 weeks. Potassium is a little low, likely because of water pills she is taking. Needs to contact her PCP about potassium. * Telephone Encounter - Celine Jon - 11/16/2019 11:53 AM CDT ----- Message from Fernanda Kuhn MD sent at 11/16/2019 11:12 AM CDT ----- Also, her calcium is elevated, along with her parathyroid hormone. Will need to monitor this and stay well hydrated. documented in this encounter Plan of Treatment Upcoming Encounters Date Type Department Care Team (Late st Contact Info) Description 07/12/2024 2:30 PM MANAGER MOBILITY Office Visit [facility] Oncology and Hematology [facility] [address] [facility] 200 [place] [address] Ovidio Nolen MD [address] [facility] 100 [place] [address] documented as of this encounter Visit Diagnoses Diagnosis Multiple thyroid nodules- Primary Nontoxic multinodular goiter Primary hypothyroidism Unspecified hypothyroidism Subclinical hypothyroidism Other specified acquired hypothyroidism documented in this encounter Care Teams Head Of Music Relationship Specialty [place] [address] [facility] [address] [place] [phone] PCP - General Internal Medicine 08/14/18 documented as of this encounter
--- OUTSIDE RECORDS SUMMARY | 2024-05-26 13:14 | XMS_ITS | Encounter Summary ---
Author Organization [facility] Address [address] [place] [address] Care Team Providers Care Loan Review Officer Name Role Phone Theresa Camargo MD Primary Care Provider [phone] Encounter Details Date Type Department Care Team (Late Contact Info) Description 11/08/2019 Orders Only [facility] Laboratory Services [address] [place] [address] [place] [address] [place] [address] [address] Social History Tobacco Use Types Packs/Day Years [...] have Coronavirus / COVID-19? No / Unsure 11/08/2019 9:34 AM CDT documented as of this encounter Plan of Treatment Upcoming Encounters Date Type Department Care Team (Late Contact Info) Description 07/12/2024 2:30 PM MEDICAL INSURANCE CLERK Office Visit [facility] Oncology and Hematology - [place] [address] [place] [address] Ovidio Nolen MD [address] [facility] [address] [place] [address] documented as of this encounter Visit Diagnoses Not on filedocumented in this encounter Care Teams Loan Review Officer Relationship Specialty [place] [address] [facility] [address] [place] [address] PCP - General Internal Medicine 08/14/18 documented as of this encounter
--- OUTSIDE RECORDS SUMMARY | 2024-05-26 13:14 | XMS_ITS | Encounter Summary ---
Author Organization [facility] Address [address] [place] [address] Care Team Providers Care Lean Leader Name Role Phone Theresa Camargo MD Primary Care Provider [phone] Reason for Visit * Reason Comments Medication Refill Encounter Details Date Type Department Care Team (Late st Contact Info) Description 07/30/2020 Refill [facility] Endocrinology [address] [place] [address] Yuliya Ibarra MD [address] [place] [address] Social History Tobacco Use Types [...] have Coronavirus / COVID-19? No / Unsure 07/26/2020 8:25 AM DRILLER HELPER documented as of this encounter Miscellaneous Notes * Telephone Encounter - Yoselin Vázquez - 07/31/2020 9:02 AM CDT JOSE G: 07/26/2020 CA: 08/17/2020 NOV: 11/16/2020 documented in this encounter Plan of Treatment Upcoming Encounters Date Type Department Care Team (Late st Contact Info) Description 07/12/2024 2:30 PM DRILLER HELPER Office Visit [facility] Oncology and Hematology - [place] [address] [facility] 200 [place] [address] Ovidio Nolen MD [address] [facility] [address] [place] [address] documented as of this encounter Visit Diagnoses Not on filedocumented in this encounter Care Teams Lean Leader Relationship Specialty [place] [address] [facility] [address] [place] [phone] PCP - General Internal Medicine 08/14/18 documented as of this encounter
--- OUTSIDE RECORDS SUMMARY | 2024-05-26 13:14 | XMS_ITS | Encounter Summary ---
Author Organization [facility] Address [address] [place] [address] Care Team Providers Care Willow Machine Tender Name Role Phone Theresa Camargo MD Primary Care Provider [phone] Reason for Visit * Reason Onset Date Comments Question 01/25/2019 Encounter Details Date Type Department Care Team (Late Contact Info) Description 01/25/2019 Telephone [facility] Endocrinology [address] [place] [address] Yuliya Ibarra MD [address] [place] [address] Question Social History Tobacco Use Types Packs/Day Years Used Date Smoking Tobacco: Never Alcohol Use Standard Drinks/Week Comments No 0 (1 standard drink = 0.6 oz pur e alcohol) Sex and Gender Information Value Date Recorded Sex Assigned at Not on file Gender Identity Not on file Sexual Orientation Not on file documented as of this encounter Miscellaneous Notes * Telephone Encounter - Kenton Pate - 01/25/2019 8:10 AM CDT She has questions about a test that she need to prep for. Currently can not remember the nurse instructions. documented in this encounter Plan of Treatment Upcoming Encounters Date Type Department Care Team (Late st Contact Info) Description 07/12/2024 2:30 PM BOTTLING EQUIPMENT SALES REPRESENTATIVE Office Visit [facility] Oncology and Hematology - [place] [address] [facility] 200 [place] [address] Ovidio Nolen MD [address] [facility] [address] [place] [address] documented as of this encounter Visit Diagnoses Not on filedocumented in this encounter Care Teams Willow Machine Tender Relationship Specialty [place] [address] [facility] [address] [place] [address] PCP - General Internal Medicine 08/14/18 documented as of this encounter
--- OUTSIDE RECORDS SUMMARY | 2024-05-26 13:14 | XMS_ITS | Encounter Summary ---
Author Organization [facility] Address [address] [place] [address] Care Team Providers Care Print Shop Stenographer Name Role Phone Theresa Camargo MD Primary Care Provider Encounter Details Date Type Department Care Team (Late st Contact Info) Description 02/02/2020 Orders Only [facility] Endocrinology [address] [place] [address] Yuliya Ibarra MD [address] [facility] [address] [address] [place] [address] Social History Tobacco Use Types [...] st Contact Info) Description 07/12/2024 2:30 PM CIGARETTE PACKAGE EXAMINER Office Visit [facility] Oncology and Hematology - [place] [address] [facility] 200 [place] [address] Ovidio Nolen MD [address] [facility] [address] [place] [address] documented as of this encounter Procedures Procedure Name Priority Date/Time Associated Diagnosis Comments MISCELLANEOUS LAB TEST Routine 01/25/2020 documented in this encounter Results * MISCELLANEOUS LAB TEST (01/25/2020) Yuliya Ibarra MD [facility]MISTRY [facility]ABLES [facility] documented in this encounter Visit Diagnoses Not on filedocumented in this encounter Care Teams Print Shop Stenographer Relationship Specialty Start [place] [address] [address] PCP - General Internal Medicine 08/14/18 documented as of this encounter
--- OUTSIDE RECORDS SUMMARY | 2024-05-26 13:14 | XMS_ITS | Encounter Summary ---
Author Organization [facility] Address [address] [place] [address] Care Team Providers Care Road Machinery Inspector Name Role Phone Theresa Camargo MD Primary Care Provider [phone] Reason for Visit * Reason Comments Medication Refill Encounter Details Date Type Department Care Team (Late st Contact Info) Description 04/28/2019 Refill [facility] Endocrinology [address] [facility] [address] [place] [address] Yuliya Ibarra MD [address] [place] [address] Multiple thyroid nodules Social History Tobacco Use Types Packs/Day Years Used Date Smoking Tobacco: Never Alcohol Use Standard Drinks/Week Comments No 0 (1 standard drink = 0.6 oz pur e alcohol) Sex and Gender Information Value Date Recorded Sex Assigned at Not on file Gender Identity Not on file Sexual Orientation Not on file documented as of this encounter Miscellaneous Notes * Telephone Encounter - Bekah Wang - 04/30/2019 6:12 PM CST galo 01/20/19 nov 05/24/19 FLIPPER documented in this encounter Plan of Treatment Upcoming Encounters Date Type Department Care Team (Late st Contact Info) Description 07/12/2024 2:30 PM TIN FLIPPER Office Visit [facility] Oncology and Hematology - [place] [address] [place] [address] Ovidio Nolen MD [address] [facility] [address] [place] [address] documented as of this encounter Visit Diagnoses Diagnosis Multiple thyroid nodules Nontoxic multinodular goiter documented in this encounter Care Teams Road Machinery Inspector Relationship Specialty [place] [address] [facility] [address] [place] [address] PCP - General Internal Medicine 08/14/18 documented as of this encounter
--- OUTSIDE RECORDS SUMMARY | 2024-05-26 13:14 | XMS_ITS | Encounter Summary ---
Author Organization [facility] Address [address] [place] [address] Care Team Providers Care Rating Specialist Name Role Phone Theresa Camargo MD Primary Care Provider Reason for Visit * Reason Onset Date Comments Results 02/03/2020 Encounter Details Date Type Department Care Team (Late st Contact Info) Description 02/03/2020 Telephone [facility] Endocrinology [address] [place] [address] Yuliya Ibarra MD [address] [place] [address] Results Social History Tobacco Use [...] * Telephone Encounter - Celine Rudolph - 02/03/2020 9:34 AM CDT Spoke with patient, advised MD message regarding results. Patient voiced understanding. * Telephone Encounter - Celine Rudolph - 02/03/2020 9:33 AM CDT ----- Message from Yuliya Ibarra MD sent at 02/02/2020 4:18 PM CDT ----- Calcium is still elevated and about the same. Needs to stay well hydrated. 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
--- OUTSIDE RECORDS SUMMARY | 2024-05-26 13:14 | XMS_ITS | Encounter Summary ---
Author Organization [employer] Address [address] [place] [address] Care Team Providers Care Paper Slitter Name Role Phone Theresa Camargo MD Primary Care Provider [phone] Reason for Visit * Reason Onset Date Comments Medication Refill 07/19/2019 Encounter Details Date Type Department Care Team (Late st Contact Info) Description 07/19/2019 Refill [facility] Endocrinology [address] [place] [address] Yuliya Ibarra MD [address] [place] [address] Social History Tobacco Use Types [...] * Telephone Encounter - Celine Rudolph - 07/19/2019 2:09 PM CST JOSE G: 05/24/2019 NOV: 09/20/2019 Patient's daughter request if possible a prescription be sent to the local pharmacy since the patient is almost out as well as [facility] a [facility] 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
--- OUTSIDE RECORDS SUMMARY | 2024-05-26 13:14 | XMS_ITS | Encounter Summary ---
Author Organization [facility] Address [address] [place] [address] Care Team Providers Care Pricing Analyst Name Role Phone Theresa Camargo MD Primary Care Provider [phone] Reason for Visit * Reason Onset Date Comments Results 04/10/2020 Encounter Details Date Type Department Care Team (Late st Contact Info) Description 04/10/2020 Telephone [facility] Endocrinology [address] [place] [address] Yuliya Ibarra MD [address] [place] [address] Results Social History Tobacco Use [...] * Telephone Encounter - Yoselin Vázquez - 04/10/2020 9:01 AM CST Pt was notified and voiced an understanding UMED CHARACTER * Telephone Encounter - Yoselin Vázquez - 04/10/2020 8:58 AM CST ----- Message from Yuliya Ibarra MD sent at 04/04/2020 4:50 PM COSTUMED CHARACTER ----- Stable calcium level Will see patient as scheduled. UMED CHARACTER documented in this encounter Plan of Treatment Upcoming Encounters Date Type Department Care Team (Late st Contact Info) Description 07/12/2024 2:30 PM COSTUMED CHARACTER Office Visit [facility] Oncology and Hematology - [place] [address] [facility] [address] [place] [address] Ovidio Nolen MD [address] [facility] [address] [place] [address] documented as of this encounter Visit Diagnoses Not on filedocumented in this encounter Care Teams Pricing Analyst Relationship Specialty [place] [address] [facility] [address] [place] [address] PCP - General Internal Medicine 08/14/18 documented as of this encounter
--- OUTSIDE RECORDS SUMMARY | 2024-05-26 13:14 | XMS_ITS | Encounter Summary ---
Author Organization [facility] Address [address] [place] [address] Care Team Providers Care Wood Fence Erector Name Role Phone Theresa Camargo MD Primary Care Provider [phone] Reason for Visit * Reason Comments Diabetes Encounter Details Date Type Department Care Team (Late st Contact Info) Description 07/26/2020 8:45 AM DIRECT MARKETING MANAGER Office Visit [facility] [address] [place] [address] Yuliya Ibarra MD [address] [place] [address] Type 2 diabetes mellitus without complication, without long-term current use of insulin (Primary Dx); Hyperparathyroidism, unspecified; Primary hypothyroidism; Multiple thyroid nodules; Hypercalcemia; Insulin dose changed Social History Tobacco Use Types Packs/Day Years [...] COVID-19? No / Unsure 07/26/2020 8:25 AM DIRECT MARKETING MANAGER documented as of this encounter Last Filed Vital Signs Vital Sign Reading Time Taken Comments Blood Pressure 120/64 07/26/2020 8:31 AM DIRECT MARKETING MANAGER Pulse 74 07/26/2020 8:31 AM DIRECT MARKETING MANAGER Temperature - - Respiratory Rate - - Oxygen Saturation - - Inhaled Oxygen Concentration - - Weight - - Height 165.1 cm (5' 5 ) 07/26/2020 8:31 AM DIRECT MARKETING MANAGER Body Mass Index - - documented in this encounter Progress Notes * Yuliya Ibarra MD - 07/26/2020 8:46 AM CST [facility] Yuliya Ibarra M.D. Reason for visit: DM follow-up. Subjective: . Here w/ her daughter. Perla Leon is a 79 y.o. female with multiple medical problems, who presents to clinic for DM, thyroid nodules post left nodule FNA w/ benign results, subclinical hypothyroidism, hypercalcemia, atrial fibrillation, dx of breast cancer, post surgery and radiation, spastic paraplegia, CVA, memory loss, presents to clinic for follow-up. Patient was diagnosed with multiple thyroid nodules via ultrasound. Her thyroid ultrasound was in October/2013 revealing small thyroid nodules/cysts, f/u ultrasound, done on 02/2015 confirmed small cysts. Patient denies changes in her neck size, dysphagia, voice changes, exposure to radiation treatments. She was started on Levothyroxine 25 mcg daily, but started experiencing hair loss, decided to stop taking. Her TSH was too high ( above 10) and she was asked to restart Levothyroxine 25 mcg daily.Current Levothyroxine dose is 50 mcg daily. Her ultrasound, done on 10/2017, revealed interval development of suspicious left thyroid nodule, post FNA w/ benign results. Follow-up ultrasound, done on , revealed slightly larger nodule. Last ultrasound, done on 10/2019, revealed stable nodule and 1 year follow-up was recommended. DM regimen: currently on Lantus 8 units in am, Glimepiride 2 mg in am, 2 mg with lunch and 1 mg with dinner, Januvia 100 mg daily, Invokana 100 mg daily Reports higher sugars lately, reviewed. Last Hga1C was 7.1% She has tried stopping Glimepiride, but her sugars increased, had to resume. She is staying well hydrated. Glucometer: has one. Last eye exam: 3 months ago - has glaucoma. Previous meds: Levemir 6 units qhs, Could not tolerate Metformin secondary to diarrhea. Jardiance 10 mg daily. Goes to a real estate leasing agent. 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 Her DEXA scan revealed osteopenia and she was found to have normal urine calcium level. Patient was taking Triamterene/ HCTZ for her leg swelling. She denies having problems with high calcium in the past, denies nephrolithiasis, admitsto memory issues. She was found to be hypokalemic, started on potassium supplements, takes KCL 40 mEq daily and her last potassium level was normal. Was hospitalized for very low potassium, takes Lasix and potassium supplements. Has been on Prolia as per her oncologist. Needs to be on a wheelchair due to frequent falls, has a walker at home. Review of Systems: Endo/Gen: She: denies polyuria/polydipsia/nocturia, denies blurred vision. Her most recent eye exam was w/n this year. We discussed the need for yearly eye exams. She has had no significant hypoglycemia recently. Gen: denies f/chills Eye/vision: denies double vision, pain, visual field cuts ENT: denies dysphagia/disphonia Resp: denies shortness of breath, cough CV: denies chest pain/palpitations/CHARLES GI: denies abdominal pain, diarrhea, constipation, nausea/vomiting : denies dysuria, nocturia, incontinence ENDO:see above Neuro: denies seizures, tremors Psych: denies memory/orientation/mood problems Extr: denies decreased ROM All other review of systems negative Medications: Current Outpatient Medications Medication Sig Dispense Refill ??? SITagliptin (Januvia) 100 mg Tablet TAKE 1 TABLET DAILY WITH BREAKFAST 90 Tablet 1 ??? denosumab (PROLIA) 60 mg/mL Syringe Inject 60 mg by subcutaneous injection Every twentysix weeks. ??? glimepiride (AMARYL) 1 mg tablet TAKE 1 TABLET (1 MG) BY MOUTH 3 TIMES DAILY. 90 Tablet 2 ??? LEVOTHYROXINE 50 mcg tablet TAKE 1 TABLET (50 MCG) BY MOUTH DAILY CAT SWAMPER. 30 Tablet 3 ??? flecainide (TAMBOCOR) 50 mg Tablet Take 50 mg by mouth. ??? insulin glargine (Lantus Solostar U-100 Insulin) 100 unit/mL pen syringe 8 units SQ in am 15 mL2 ??? Insulin Corder, Disposable, (Maddi Pen Needle) 32 gauge x 32 Needle USE TO INJECT INSULIN ONCE DAILY 100 Each 3 ??? blood sugar diagnostic (FreeStyle Lite Strips) Strip TEST BLOOD SUGARS three times A DAY DX E11.9.. 300 Strip 1 ??? Invokana 100 mg TAKE 1 TABLET BY MOUTH DAILY BEFORE BREAKFAST 90 Tablet 0 ??? albuterol HFA 90 mcg inhaler Take 2 Puffs by mouth. ??? anastrozole (ARIMIDEX) 1 mg tablet Take 1 mg by mouth. ??? aspirin-calcium carbonate 81 mg-300 mg calcium(777 mg) Tablet Take 81 mg by mouth. ??? Calcium Carbonate-Vit D3-Min 600 mg calcium- 400 unit Tablet Take 1 Tablet by mouth. ??? flecainide (TAMBOCOR) 50 mg Tablet Take 50 mg by mouth. ??? furosemide (LASIX) 40 mg tablet Take 40 mg by mouth. ??? latanoprost (XALATAN) 0.005 % solution 1 Drop. ??? linaclotide (LINZESS) 145 mcg capsule Take 145 mcg by mouth. ??? Menthol-Zinc Oxide (CALMOSEPTINE) 0.44-20.6 % Ointment Apply to affected area. ??? polyethylene glycol (MIRALAX) 17 gram Powder in Packet Take 17 Grams by mouth. ??? verapamil (VERELAN) 240 mg Sustained Release 24 hour capsule Take 240 mg by mouth. ??? metOLazone (ZAROXOLYN) 2.5 mg tablet Take 2.5 mg by mouth every 7 days. ??? potassium chloride (KLOR-CON) 10 mEq Extended Release tablet TAKE 4 TABLETS DAILY WITH BREAKFAST 360 Tablet 0 ??? lancets (FREESTYLE LANCETS) 28 gauge 100 Each by Misc.(Non-Drug; Combo Route) route daily. Dx code 250.02 100 Each 6 ??? IPRATROPIUM BROMIDE INHALATION Take by inhalation 2 times daily. ??? esomeprazole (NEXIUM) 40 mg Oral CpDR Take 40 mg by mouth daily before breakfast. ??? amitriptyline (ELAVIL) 50 mg Oral tablet Take 50 mg by mouth daily at bedtime. ??? clopidogrel (PLAVIX) 75 mg Oral Tab Take 75 mg by mouth Daily LATE. Indications: to check with PMD per dr pack ??? rosuvastatin (CRESTOR) 10 mg Oral tablet Take 10 mg by mouth daily at bedtime. ??? cyanocobalamin (VITAMIN B-12) 1,000 mcg Oral Tab Take 1,000 mcg by mouth daily. ??? multivitamin (DAILY-BRYON) Oral tablet Take 1 Tab by mouth daily. Indications: instructed to stop prior to surgery ??? HYPROMELLOSE (SYSTANE GEL OP) by Ophthalmic route. PRN No current facility-administered medications for this visit. Social History: Social History Socioeconomic History ??? Marital status: Spouse name: Not on file ??? Number of children: Not on file ??? Years of education: Not on file ??? Highest education level: Not on file Occupational History Employer: [employer] Social Needs ??? Financial resource strain: Not on file ??? Food insecurity Worry: Not on file Inability: Not on file ??? Transportation needs Medical: Not on file Non-medical: Not on file Tobacco Use ??? Smoking status: Never Smoker Substance and Sexual Activity ??? Alcohol use: No ??? Drug use: No ??? Sexual activity: Not on file Comment: hyst Lifestyle ??? Physical activity Days per week: Not on file Minutes per session: Not on file ??? Stress: Not on file Relationships ??? Social connections Talks on phone: Not on file Gets together: Not on file Attends muslim service: Not on file Active member of [...] History Narrative ??? Not on file Family medical history: Family History Problem Relation Name Age of Onset ??? Breast Cancer Mother ??? Hypertension Brother ##Brother1 ??? High Cholesterol Brother ##Brother1 Medical History: Past Medical History: Diagnosis Date ??? Arthritis hands and back ??? Asthma ??? Cancer skin ??? CVD (cerebrovascular disease) 3366-4719 TIA x2 ??? Diabetes no medication at present ??? Duodenal ulcer 1978 ??? 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 GERD (gastroesophageal reflux disease) ??? Glaucoma ??? Hard of hearing right ear worse ??? Heart murmur ??? HTN (hypertension) ??? Hyperlipidemia ??? IBS (irritable bowel syndrome) ??? Ischemia of heart, chronic ??? Obstructive sleep apnea (adult) (pediatric) to bring cpap day of surgery ??? Pneumonia just recovering ??? PVD (peripheral vascular disease) feet mainly ??? Seizure disorder 2000 after stroke-none since ??? Shingles [id number] x3 ??? Spondylolisthesis l4-l5 Patient Active Problem List Diagnosis Code ? ? ssc, a&p, no sling N99.3 ??? Multiple thyroid nodules E04.2 ??? Hypercalcemia E83.52 ??? Type 2 diabetes mellitus without complication, without long-term current use of insulin E11.9 ??? Primary hypothyroidism E03.9 Past Surgical History: Procedure Laterality Date ??? HX CHOLECYSTECTOMY 1998 ??? HX HEART CATHETERIZATION 2002 dr. Valencia ??? HX HERNIA REPAIR 2009-[facility] ??? HX HYSTERECTOMY 1986 ??? HX KNEE ARTHROSCOPY 3302-2563 right knee ??? HX SURGICAL OTHER 1975 ulcer removed from vocal cord ??? HX SURGICAL OTHER 1985 surgery for broken nose ??? HX SURGICAL OTHER 09/10/2010 ANTERIOR POSTERIOR REPAIR performed by FRANKLYN PACK at [facility] MA[facility] ??? OH ANTERIOR COLPORRAPHY RPR CYSTOCELE W/CYSTO 09/10/2010 CYSTOCELE REPAIR performed by FRANKLYN PACK at [facility] MAIN ??? OH POST COLPORRHAPHY,RECTUM/VAGINA 09/10/2010 RECTOCELE REPAIR performed by FRANKLNY PACK at [facility] MAIN ??? OH REPAIR ENTEROCELE,VAG APPRCH 09/10/2010 ENTEROCELE REPAIR VAGINAL APPROACH performed by FRANKLYN PACK at [facility] MAIN ??? OH REPAIR OF PERINEUM,NON OBSTETRICAL 09/10/2010 PERINEOPLASTY performed by FRANKLYN PACK at [facility] MAIN ??? OH REPR VAGINAL PROLAPSE,SACROSP LIG 09/10/2010 SACROSPINOUS LIGAMENT FIXATION performed by FRANKLYN PACK at [facility] MA[facility] Physical Findings: Wt Readings from Last 3 Encounters: 05/05/20 79.8 kg (176 lb) 11/15/19 82.6 kg (182 lb) 05/24/19 79.4 kg (175 lb) BP 120/64 Pulse 74 Ht 5' 5 (1.651 m) BMI 29.29 kg/m?? Good blood pressure for her. Physical Exam: General appearance: alert, well appearing, and in no distress Eye exam - pupils equal and reactive, extraocular eye movements intact Thyroid/Neck exam reveals: palpable thyroid, no nodules palpated, no LAD, non-tender. CVS exam: normal rate, regular rhythm, normal S1, S2 Chest:clear to auscultation, no wheezes, rales or rhonchi, symmetric air entry Abdominal exam: soft, nontender, nondistended, no masses or organomegaly Exam of extremities:peripheral pulses normal, wearing compression stockings. Neuro: No tremor, CN II-XII grossly intact Psych: mood and affect appropriate. Diabetic foot exam: Visual: callous formation, non-ulcerative Sensory:normal monofilament testing Pulses: normal bilaterally Lab: 08/26/17 Hga1C - 7.0% Lab Results Component Value Date/Time HGBA1C 7.1 (H) 05/05/2020 01:54 PM 02/2020 Hga1C 7.3% Calcium 11.1 Component Latest Ref Rng & Units 12/12/2016 4:14 AM GLUCOSE 65 - 99 mg/dL 102 (H) BUN 7 - 25 mg/dL 15 CREATININE 0.60 - 0.93 mg/dL 0.99 (H) GFR > OR = 60 mL/min/1.73m2 55 (L) GFR, > OR = 60 mL/min/1.73m2 63 BUN/CREAT RATIO 6 - 22 (calc) 15 SODIUM 135 - 146 mmol/L 143 POTASSIUM 3.5 - 5.3 mmol/L 4.2 CHLORIDE 98 - 110 mmol/L 108 CO2 20 - 31 mmol/L 28 CALCIUM 8.6 - 10.4 mg/dL 10.2 TOTAL PROTEIN 6.1 - 8.1 g/dL 5.8 (L) ALBUMIN 3.6 - 5.1 g/dL 3.8 GLOBULIN 1.9 - 3.7 g/dL (calc) 2.0 ALBUMIN/GLOBULIN RATIO 1.0 - 2.5 (calc) 1.9 BILIRUBIN TOTAL 0.2 - 1.2 mg/dL 0.4 ALKALINE PHOSPHATASE 33 - 130 U/L 93 AST 10 - 35 U/L 15 ALT 6 - 29 U/L 18 Component Latest Ref Rng 08/18/2015 08/18/2015 08/18/2015 12:00 AM 12:00 AM 12:00 AM CHOLESTEROL 200 mg/dL 112 TRIGLYCERIDE 150 mg/dL 175 (A) HDL 40 - 59 mg/dL 27 (A) LDL CALCULATED 100 mg/dL 50 MICROALBUMIN, URINE 8.0 CREATININE, URINE 29.0 - 226.0 mg/dL 83.1 MICROALBUMIN/CREAT RATIO, UR 9.6 HEMOGLOBIN A1C 4.7 - 6.4 % 7.8 (A) Component Latest Ref Rng 01/06/2015 12:18 PM SODIUM 136-145 mmol/L 142 POTASSIUM 3.5-5.0 mmol/L 4.4 CHLORIDE 98-107 mmol/L 104 CO2 22-29 mmol/L 26 CALCIUM 8.6-10.2 mg/dL 11.2 (H) BUN 8-23 mg/dL 17 CREATININE 0.51-0.95 mg/dL 0.87 GLUCOSE 79-99 mg/dL 158 (H) GFR >60 GFR, >60 ANION GAP 8-16 mmol/L 12 Component Latest Ref Rng 11/14/2014 11/14/2014 12/07/2014 12/07/2014 11:54 AM 11:54 AM 10:40 AM 10:41 AM SODIUM 136-145 mmol/L 140 136 POTASSIUM 3.5-5.0 mmol/L 3.3 (L) 3.2 (L) CHLORIDE 98-107 mmol/L 103 99 CO2 22-29 mmol/L 26 26 CALCIUM 8.6-10.2 mg/dL 11.2 (H) 10.5 (H) BUN 8-23 mg/dL 18 20 CREATININE 0.51-0.95 mg/dL 0.83 0.82 GLUCOSE 79-99 mg/dL 201 (H) 188 (H) GFR >60 >60 GFR, >60 >60 ANION GAP 8-16 mmol/L 11 11 HEMOGLOBIN A1C 4.1-6.1 % 8.3 (H) 7.8 (H) EST. AVG GLUCOSE, A1C 192 177 Labs via care everywhere: 12/29/16 HgA1C - 6.8% Hga1C - 6.6% - done on 06/13/16 Creatinine 0.81 Calcium 10.3 TSH 4.45 Reviewed [facility] lab result done on 04/19/14 CMP - WNL - creatinine 0.67, GFR 86 Total cholesterol 106 Triglycerides 153 HDL - 35 LDL 40 HgA1C - 7.6% HgA1C - 7.1% - November 03. 04/08/13 Bun /creatinine - 23/0.88 Transaminases - wnl Calcium 11.1 GFR - 63 HgA1C - 8.8% Total cholesterol - 123 Triglycerides - 288 HDL - 34 LDL 31 Lab Results Component Value Date/Time SODIUM 137 05/05/2020 01:54 PM SODIUM 137 11/15/2019 12:53 PM SODIUM 141 01/20/2019 11:59 AM POTASSIUM 3.2 (L) 05/05/2020 01:54 PM POTASSIUM 3.4 (L) 11/15/2019 12:53 PM POTASSIUM 3.1 (L) 01/20/2019 11:59 AM CHLORIDE 95 (L) 05/05/2020 01:54 PM CHLORIDE 95 (L) 11/15/2019 12:53 PM CHLORIDE 98 01/20/2019 11:59 AM CO2 32 05/05/2020 01:54 PM CO2 28 11/15/2019 12:53 PM CO2 32 (H) 01/20/2019 11:59 AM BUN 29 (H) 05/05/2020 01:54 PM BUN 32 (H) 11/15/2019 12:53 PM BUN 22 01/20/2019 11:59 AM GLUCOSE 177 (H) 05/05/2020 01:54 PM GLUCOSE 168 (H) 11/15/2019 12:53 PM GLUCOSE 99 01/20/2019 11:59 AM Lab Results Component Value Date/Time ALBUMIN 3.9 01/23/2018 01:48 PM ALBUMIN 4.2 05/02/2017 11:47 AM ALBUMIN 3.8 12/12/2016 04:14 AM CREATININE 1.12 (H) 05/05/2020 01:54 PM CREATININE 0.92 11/15/2019 12:53 PM CREATININE 0.86 01/20/2019 11:59 AM Lab Results Component Value Date/Time TSH 2.73 05/05/2020 01:54 PM TSH 6.12 (H) 11/15/2019 12:53 PM TSH 3.35 01/20/2019 11:59 AM Lab Results Component Value Date/Time VITAMIN D, 25 OH, TOTAL 22 04/28/2013 03:24 PM 10/2013 thyroid ultrasound FINDINGS: Sagittal and transverse real-time examination reveals the right lobe to measure 4.6 x 1.9 x 1.7 cm in diameter. The left lobe is 3.8 x 1.4 x 1.4 cm in diameter. The isthmus is not thickened. There are small cystic bilateral thyroid nodules. The largest of these on the right is in the mid to lower aspect of the right lobe and measures 0.8 x 0.7 x 0.6 cm in size. It contains some internal septations. No definite internal vascularity or calcification is observed. There is a focal coarse calcification in the anterior midportion of the right thyroid lobe measuring 0.4 x 0.3 x 0.3 cm in size. A small cystic nodule is noted in the lower to midportion of the left lobe and measures only 0.4 cm in size. This is not thought to be clinically significant. No perithyroid adenopathy is demonstrated. IMPRESSION: 1. Small cystic nodules bilaterally. 2. No evidence for significant thyroid mass at this time. 02/2015 thyroid ultrasound: IMPRESSION: 1. Slight increase in size of a tiny 0.6 cm cystic nodule in the left thyroid lobe. 2. The previously noted right thyroid lobe nodule is stable. ?? 11/08/19 ULTRASOUND OF THE THYROID ?? DATE: 11/08/2019 10:10 AM ?? HISTORY: Multiple thyroid nodules ?? COMPARISON: September 25, 2018 ?? FINDINGS: Multiple transverse, longitudinal and oblique images of the thyroid were obtained. The right lobe measures 3.7 x 1.9 x 1.6 cm and the left lobe measures 3.7 x 1.4 x 1.4 cm, both lobes within normal limits. ?? Again noted are bilateral small colloid cysts. ?? A solid nodule in the left lower pole measures 6 x 6 x 4 mm (previously 7 x 7 x 6 mm). ?? INCIDENTAL FINDINGS: None. ? IMPRESSION: Left lower pole nodule is not larger. Follow-up in one year is recommended. 09/25/18 thyroid ultrasound: US HEAD NECK TISSUES ?? DATE: 09/25/2018 2:47 PM ?? HISTORY: Thyroid nodules. ?? COMPARISON: 10/17/2017 ?? FINDINGS: ?? The thyroid is normal in size and echogenicity. The right lobe of the thyroid gland measures 3.6 x 2.0 x 1.5 cm. The left lobe measures 3.9 x 1.8 x 1.4 cm. ?? There are small colloid cysts bilaterally. In the left lower pole there is a solid, hypoechoic nodule. The previously seen calcifications are less well-demonstrated. It measures 0.9 x 0.6 x 0.9 cm, increased from prior when it measured 0.7 x 0.6 x 0.7 cm. ?? There are no new nodules. There is no lymphadenopathy. ? IMPRESSION: Interval increase in size of previously biopsied highly suspicious (TR 5) nodule in the left lower pole. ?? 11/24/17 cytology Collected: 11/24/2017 15:29 Status: Final result ?Visible to patient: Yes ([place]) Component FINAL DIAGNOSIS Thyroid, left, FNA, cytology: - Cellular features consistent with a benign follicular nodule (see description). 10/2017 DEXA: BONE MINERAL DENSITY STUDY INDICATION:?Postmenopausal ovarian failure - osteoporosis screening. FINDINGS: The average bone mineral density from L1 to L4 is1.245 g/cm2. T-score is 0.4. Z-score is 1.2. The average bone mineral density of the total left hip is 0.985 g/cm2. T-score is -0.2.?Z-score is 1.1. Bone mineral density at the left femoral neck is 0.857 g/sq cm with T score -1.3 and Z score 0.2. ASSESSMENT: This patient is considered osteopenic according to World Health Organization criteria. Bone density is between 10 and 25% below young normal. Fracture risk is mild. Treatment is advised. Assessment/Plan: 1. Type II Diabetes Mellitus discussed the risk factors associated with diabetes. She was seen by our machine stoppage frequency checker during this visit. Increased Lantus to 10 units She may require short acting insulin as well based on numbers, then will stop oral meds. Asked to check sugars and send me her logs in a week or so. Patient was educated on insulin use as well as diabetic diet. Repeat Hga1C, lipids, urine microalbumin/creatinine. 2. H/o Hypercalcemia - primary hyperparathyroidism. H/o high PTH Mild osteopenia per DEXA scan. Conservative management. She has been on Prolia as per her oncologist. Calcium was down to 10.5 on 06/09/20 Repeat BMP and intact PTH later this month. 3. Hypokalemia - takes Lasix at this time, KCL but needs to be monitored by a physician prescribingher diuretics. 4. Thyroid nodules, primary hypothyroidism. Post left suspicious thyroid nodule FNA w/ benign results. Stable recent ultrasound. Repeat ultrasound w/ next visit. She is euthyroid per last TSH. Patient wants to continue w/ conservative management. Patient is to call if experiences increase in her neck size/dysphagia/dyspnea/voice changes/tremors/palpitations or other problems arise. Follow-up in 4 months. On the day of the visit, I spent 30 minutes providing care to this patient including Preparing to see the patient, Obtaining and/or reviewing separately obtained history, Performing a medically appropriate examination and/or evaluation, Counseling and educating the patient/family/caregiver, Ordering medications, tests or procedures and Documenting clinical information in the medical record. Yuliya Ibarra MD CT MARKETING MANAGER documented in this encounter Plan of Treatment Upcoming Encounters Date Type Department Care Team (Late st Contact Info) Description 07/12/2024 2:30 PM DIRECT MARKETING MANAGER Office Visit [facility] - [place] [address] [facility] [address] [facility] [address] [place] [address] Ovidio Nolen MD [address] [place] [address] Scheduled Orders Name Type Priority Associated Diagnoses Orde r Schedule HEMOGLOBIN A1C Lab Routine Type 2 diabetes mellitus without complication, without long-term current use of insulin Expected: 08/03/2020, Expires: 07/26/2021 PTH INTACT Lab Routine Type 2 diabetes mellitus without complication, without long-term current use of insulin Expected: 07/26/2020 (Approximate), Expires: 07/26/2021 BASIC METABOLIC PANEL Lab Routine Type 2 diabetes mellitus without complication, without long-term current use of insulin Expected: 07/26/2020 (Approximate), Expires: 07/26/2021 MICROALBUMIN/CREATININE RATIO, RANDOM UR Lab Routine Type 2 diabetes mellitus without complication, without long-term current use of insulin Expected: 07/26/2020 (Approximate), Expires: 07/26/2021 LIPID PANEL Lab Routine Type 2 diabetes mellitus without complication, without long-term current use of insulin Expected: 07/26/2020 (Approximate), Expires: 07/26/2021 documented as of this encounter Visit Diagnoses Diagnosis Type 2 diabetes mellitus without complication, without long-term current use of insulin- Primary Hyperparathyroidism, unspecified Primary hypothyroidism Unspecified hypothyroidism Multiple thyroid nodules Nontoxic multinodular goiter Hypercalcemia Insulin dose changed documented in this encounter Care Teams Wood Fence Erector Relationship Specialty [place] [id number] [phone] PCP - General Internal Medicine 08/14/18 documented as of this encounter
--- OUTSIDE RECORDS SUMMARY | 2024-05-26 13:14 | XMS_ITS | Encounter Summary ---
Author Organization [facility] Address [address] [place] [address] Care Team Providers Care Diagnostics Sales Developer Name Role Phone Theresa Camargo MD Primary Care Provider Reason for Visit * Reason Comments Medication Refill Encounter Details Date Type Department Care Team (Late st Contact Info) Description 03/12/2020 Refill [facility] [address] [place] [address] Yuliya Ibarra MD [address] [place] [address] Type 2 diabetes mellitus without [...] encounter Miscellaneous Notes * Telephone Encounter - Kathy Gracia - 03/14/2020 12:14 PM CDT JOSE G 11/15/19 NOV 05/01/20 documented in this encounter Plan of Treatment Upcoming Encounters Date Type Department Care Team (Late st Contact Info) Description 07/12/2024 2:30 PM LEGAL BILLING ANALYST Office Visit [facility] Oncology and Hematology - [place] [address] [facility] [address] [place] [address] Ovidio Nolen MD [address] [facility] [address] [place] [address] documented as of this encounter Visit Diagnoses Diagnosis Type 2 diabetes mellitus without complication, without long-term current use of insulin documented in this encounter Care Teams Diagnostics Sales Developer Relationship Specialty Start [place] [address] [facility] [address] [place] [id number] PCP - General Internal Medicine 08/14/18 documented as of this encounter
--- OUTSIDE RECORDS SUMMARY | 2024-05-26 13:14 | XMS_ITS | Encounter Summary ---
Author Organization [facility] Address [address] Oliveira: Epic Prelude ADT [place] [address] Care Team Providers Care Ruffling Machine Operator Name Role Phone Theresa Camargo MD Primary Care Provider [phone] Encounter Details Date Type Department Care Team (Latest Contact Info) Description 08/18/2019 Travel Social History Tobacco Use Types Packs/Day [...] have Coronavirus / COVID-19? No / Unsure 08/18/2019 12:32 PM CDT documented as of this encounter Plan of Treatment Upcoming Encounters Date Type Department Care Team (Late st Contact Info) Description 07/12/2024 2:30 PM SALES ASSISTANT INSTITUTIONAL SALES Office Visit [facility] Oncology and Hematology - [place] [address] [facility] [address] [place] [address] Ovidio Noeln MD [address] [place] [address] documented as of this encounter Visit Diagnoses Not on filedocumented in this encounter Care Teams Ruffling Machine Operator Relationship Specialty [place] [address] [address] PCP - General Internal Medicine 08/14/18 documented as of this encounter
--- OUTSIDE RECORDS SUMMARY | 2024-05-26 13:14 | XMS_ITS | Encounter Summary ---
Author Organization [facility] Address [address] [place] [address] Care Team Providers Care Kosher Butcher Name Role Phone Theresa Camargo MD Primary Care Provider [phone] Reason for Visit * Reason Comments Medication Refill Encounter Details Date Type Department Care Team (Late st Contact Info) Description 03/03/2021 Refill [facility] Endocrinology [address] [place] [address] Yuliya Ibarra MD [address] [place] [address] Social History Tobacco Use Types [...] * Telephone Encounter - Yoselin Vázquez - 03/05/2021 1:44 PM CDT JOSE G: 07/26/2020 CA: 08/17/2020, 11/16/2020 NOV: 04/06/2021 documented in this encounter Plan of Treatment Upcoming Encounters Date Type Department Care Team (Late st Contact Info) Description 07/12/2024 2:30 PM PHOTO JOURNALIST [facility] Oncology and Hematology - [place] [address] [facility] [address] [place] [address] Ovidio Nolen MD [address] [facility] [address] [place] [address] documented as of this encounter Visit Diagnoses Not on filedocumented in this encounter Care Teams Kosher Butcher Relationship Specialty [place] [address] [facility] [address] [place] [address] PCP - General Internal Medicine 08/14/18 documented as of this encounter
--- OUTSIDE RECORDS SUMMARY | 2024-05-26 13:14 | XMS_ITS | Encounter Summary ---
Author Organization [facility] Address [address] [place] [address] Care Team Providers Care Grapple Operator Name Role Phone Theresa Camargo MD Primary Care Provider [phone] Encounter Details Date Type Department Care Team (Late Contact Info) Description 11/15/2019 Orders Only [facility] Endocrinology [address] [place] [address] Yuliya Ibarra MD [address] [place] [address] Social History Tobacco Use Types [...] (Late Contact Info) Description 07/12/2024 2:30 PM YOUTH ACCOMMODATION SUPPORT WORKER Office Visit [facility] Oncology and Hematology - [place] [address] [place] [address] Ovidio Nolen MD [address] [facility] [address] [place] [address] documented as of this encounter Visit Diagnoses Not on filedocumented in this encounter Care Teams Grapple Operator Relationship Specialty Start [place] [address] [facility] [address] [place] [address] PCP - General Internal Medicine 08/14/18 documented as of this encounter
--- OUTSIDE RECORDS SUMMARY | 2024-05-26 13:14 | XMS_ITS | Encounter Summary ---
Author Organization [facility] Address [address] [place] [address] Care Team Providers Care Dev Manager Name Role Phone Thereas Camargo MD Primary Care Provider Reason for Visit * Reason Comments Medication Refill Encounter Details Date Type Department Care Team (Late st Contact Info) Description 03/31/2021 Refill [facility] Endocrinology [address] [facility] [address] [place] [address] Yuliya Ibarra MD [address] [place] [address] Social History Tobacco Use Types [...] * Telephone Encounter - Bekah Wang - 04/02/2021 10:01 AM CST 90 day rx sent 03/05/21 E GAME WARDEN documented in this encounter Plan of Treatment Upcoming Encounters Date Type Department Care Team (Late st Contact Info) Description 07/12/2024 2:30 PM STATE GAME WARDEN Office Visit [facility] Oncology and Hematology - [place] [address] [place] [address] Ovidio Nolen MD [address] [facility] [address] [place] [address] documented as of this encounter Visit Diagnoses Not on filedocumented in this encounter Care Teams Dev Manager Relationship Specialty Start [place] [address] [facility] [address] [place] [address] PCP - General Internal Medicine 08/14/18 documented as of this encounter
--- OUTSIDE RECORDS SUMMARY | 2024-05-26 13:14 | XMS_ITS | Encounter Summary ---
Author Organization [facility] Address [address] [place] [address] Care Team Providers Care Any Commodity Buyer Name Role Phone Theresa Camargo MD Primary Care Provider [phone] Encounter Details Date Type Department Care Team (Latest Contact Info) Description 11/15/2019 12:43 PM CDT - 11/15/2019 11:59 PM CDT Hospital Encounter [facility] [place] [facility] [address] [place] [address] Yuliya Ibarra MD [address] [place] [address] Discharge Disposition: Home or Self Care Social [...] AM CDT documented as of this encounter Medications at Time of Discharge Medication Sig Dispensed Refills Start Date End Date albuterol HFA 90 mcg inhaler Take 2 Puffs by mouth. anastrozole (ARIMIDEX) 1 mg tablet Take 1 mg by mouth. 01/18/2018 aspirin-calcium carbonate 81 mg-300 mg calcium(777 mg) Tablet Take 81 mg by mouth. Calcium Carbonate-Vit D3-Min 600 mg calcium- 400 unit Tablet Take 1 Tablet by mouth. 10/29/2017 linaclotide (LINZESS) 145 mcg capsule Take 145 mcg by mouth. 01/08/2018 polyethylene glycol (MIRALAX) 17 gram Powder in Packet Take 17 Grams by mouth. verapamil (VERELAN) 240 mg Sustained Release 24 hour capsule Take 240 mg by mouth. metOLazone (ZAROXOLYN) 2.5 mg tablet Take 2.5 mg by mouth every 7 days. potassium chloride (KLOR-CON) 10 mEq Extended Release tablet TAKE 4 TABLETS DAILY WITH BREAKFAST 360 Tablet 04/02/2017 lancets (FREESTYLE LANCETS) 28 gauge 100 Each by [facility].(Non-Drug; Combo Route) route daily. Dx code 250.02 100 Each 6 07/13/2013 esomeprazole (NEXIUM) 40 mg Oral CpDR Take 40 mg by mouth daily before breakfast. amitriptyline (ELAVIL) 50 mg Oral tablet Take 50 mg by mouth daily at bedtime. rosuvastatin (CRESTOR) 10 mg Oral tablet Take 10 mg by mouth daily at bedtime. cyanocobalamin (VITAMIN B-12) 1,000 mcg Oral Tab Take 1,000 mcg by mouth daily. multivitamin (DAILY-BRYON) Oral tabletIndications:ins tructed to stop prior to surgery Take 1 Tab by mouth daily. Indications: instructed to stop prior to surgery canagliflozin (INVOKANA) 100 mg Take 1 Tablet (100 mg) by mouth daily before breakfast. 30 Tablet 1 11/01/2019 01/17/2020 LEVOTHYROXINE 25 mcg tabletIndications:Mul tiple thyroid nodules TAKE 1 TABLET DAILY IN THE MORNING BEFORE A MEAL 90 Tablet 10/15/2019 11/16/2019 SITagliptin (Januvia) 100 mg Tablet TAKE 1 TABLET DAILY WITH BREAKFAST 90 Tablet 1 07/27/2019 01/26/2020 blood sugar diagnostic (FreeStyle Lite Strips) Strip TEST BLOOD SUGARS TWICE A DAY DX E11.9.. 200 Strip 1 06/22/2019 05/05/2020 glimepiride (AMARYL) 1 mg tabletIndications:Typ e 2 diabetes mellitus without complication, without long-term current use of insulin Take 1 Tablet (1 mg) by mouth 3 times daily. 90 Tablet 2 04/14/2019 03/14/2020 HAYDEN PEN NEEDLE 32 gauge x /32 Needle USE TO INJECT INSULIN ONCE DAILY 100 Each 3 01/13/2018 05/05/2020 documented as of this encounter Plan of Treatment Upcoming Encounters Date Type Department Care Team (Late st Contact Info) Description 07/12/2024 2:30 PM LABORATORY AIDE Office Visit [facility] Oncology and Hematology - [place] [address] [facility] [address] [place] [address] Ovidio Nolen MD [address] [place] [address] documented as of this encounter Procedures Procedure Name Priority Date/Time Associated Diagnosis Comments TSH Routine 11/15/2019 12:53 PM CDT Multiple thyroid nodules Primary hypothyroidism PTH INTACT Routine 11/15/2019 12:53 PM CDT Hypercalcemia HEMOGLOBIN A1C Routine 11/15/2019 12:53 PM CDT Type 2 diabetes mellitus without complication, without long-term current use of insulin BASIC METABOLIC PANEL Routine 11/15/2019 12:53 PM CDT Hypercalcemia documented in this encounter Results * (ABNORMAL) BASIC METABOLIC PANEL (11/15/2019 12:53 PM CDT) SODIUM 137 136 - 145 mmol/L 11/15/2019 2:16 PM CDT [facility] - . [place] POTASSIUM 3.4(L) 3.5 - 5.0 mmol/L 11/15/2019 2:16 PM CDT [facility] - [facility] [place] CHLORIDE 95(L) 98 - 107 mmol/L 11/15/2019 2:16 PM CDT [facility] - [facility] [place] CO2 28 22 - 29 mmol/L 11/15/2019 2:16 PM CDT [facility] - [facility] [place] CALCIUM 11.3(H) 8.6 - 10.2 mg/dL 11/15/2019 2:16 PM CDT [facility] BUN 32(H) 8 - 23 mg/dL 11/15/2019 2:16 PM CDT [facility] CREATININE 0.92 0.51 - 0.95 mg/dL 11/15/2019 2:16 PM CDT [facility] Comment:The GFR result is no t clinically significant on patients <18 or >70 years of age. GLUCOSE 168(H) 74 - 99 mg/dL 11/15/2019 2:16 PM CDT [facility] GFR 59 mL/min/1.7 3 sq meter 11/15/2019 2:16 PM CDT [facility] Comment: eGFR has not been validated for use in the elderly (> 70 years of age), women, patients with serious co-morbid conditions, or persons with extremes of body size or muscle mass and should also be interpreted with caution in patients with acute kidney failure, dialysis dependent patients, patients reporting exceptional dietary intake (e.g. vegetarian diet, high protein diets, creatine supplementation), and patients with severe liver disease. Based on National Kidney Disease Education Program If patient is , please refer to the GFR result. GFR, >60 mL/min/1.7 3 sq meter 11/15/2019 2:16 PM CDT [facility] ANION GAP 14 8 - 16 mmol/L 11/15/2019 2:16 PM CDT [facility] Blood Venipuncture / Unknown 11/15/2019 12:53 PM CDT 11/15/2019 1:33 PM CDT Yuliya Ibarra MD CHEMISTRY ORDERABLES [facility]# [id number] [address] [place] [address] * (ABNORMAL) PTH INTACT (11/15/2019 12:53 PM CDT) PTH INTACT 78.8(H) 15.0 - 65.0 pg/mL 11/15/2019 2:19 PM CDT [facility] Blood Venipuncture / Unknown 11/15/2019 12:53 PM CDT 11/15/2019 1:33 PM CDT Yuliya Ibarra MD CHEMISTRY ORDERABLES Performing Organization Address City/[facility]/ZIP Co de Phone Number [facility] CLIA# [id number] [address] [place] [address] * (ABNORMAL) TSH (11/15/2019 12:53 PM CDT) TSH 6.12(H) 0.27 - 4.20 uIU/mL 11/15/2019 2:16 PM CDT [facility] Blood Venipuncture / Unknown 11/15/2019 12:53 PM CDT 11/15/2019 1:33 PM CDT Yuliya Ibarra MD CHEMISTRY ORDERABLES Performing Organization Address [facility] Co de Phone Number [facility] [employer] [facility] CLIA# [id number] [address] [place] [address] * (ABNORMAL) HEMOGLOBIN A1C (11/15/2019 12:53 PM CDT) HEMOGLOBIN A1C 7.4(H) <5.7 % 11/15/2019 2:54 PM CDT [facility] EST. AVG GLUCOSE, A1C 166 mg/dL 11/15/2019 2:54 PM CDT [facility] Blood Venipuncture / Unknown 11/15/2019 12:53 PM CDT 11/15/2019 1:33 PM CDT Narrative [facility] - 11/15/2019 2:54 PM CDT HGB A1C INTERPRETATION NORMAL: ? <5.7% PRE-DIABETES: 5.7 - 6.4% DIABETES: ? 6.5% OR GREATER Yuliya Ibarra MD CHEMISTRY ORDERABLES [facility]# [id number] [address] [facility] [place] [facility] [place] [address] documented in this encounter Visit Diagnoses Diagnosis Type 2 diabetes mellitus without complication, without long-term current use of insulin Multiple thyroid nodules Nontoxic multinodular goiter Primary hypothyroidism Unspecified hypothyroidism Hypercalcemia documented in this encounter Care Teams Any Commodity Buyer Relationship Specialty [place] [address] [address] PCP - General Internal Medicine 08/14/18 documented as of this encounter
--- OUTSIDE RECORDS SUMMARY | 2024-05-26 13:14 | XMS_ITS | Encounter Summary ---
Author Organization [employer] Address [address] [place] [address] Care Team Providers Care Credit Union Examiner Name Role Phone Theresa Camargo MD Primary Care Provider Reason for Referral * Radiology Services (Routine) - Closed Specialty Diagnoses / Procedures Referred By Contac t Referred To Contact Radiology Diagnoses Hyperparathyroidism, unspecified Subclinical hypothyroidism Procedures XR DEXA BONE DENSITY AXIAL 1 OR MORE SITES Yuliya Ibarra MD [address] [place] [address] [facility] [address] [address] Referral ID Status Reason Start Date Expiration Date V isits Requested Visits Authorized [id number] Closed ST[facility] CTS 05/17/2020 06/17/2021 1 1 ING SAW OPERATOR Reason for Visit * Radiology Services (Routine) - Closed Specialty Diagnoses / Procedures Referred By Contac t Referred To Contact Radiology Diagnoses Hyperparathyroidism, unspecified Subclinical hypothyroidism Procedures XR DEXA BONE DENSITY AXIAL 1 OR MORE SITES Yuliya Ibarra MD [address] [place] [address] [facility] [place] [address] [place] [address] Referral ID Status Reason Start Date Expiration Date V isits Requested Visits Authorized [id number] Closed STL CTS 05/17/2020 06/17/2021 1 1 Encounter Details Date Type Department Care Team (Latest Contact Info) Description 06/06/2020 9:00 AM BUTTING SAW OPERATOR - 06/06/2020 11:59 PM BUTTING SAW OPERATOR Hospital Encounter [facility] [place] [address] [place] [address] Yuliya Ibarra MD [address] [facility] [address] [place] [address] Discharge Disposition: Home or Self [...] have Coronavirus / COVID-19? No / Unsure 06/06/2020 10:15 AM BUTTING SAW OPERATOR documented as of this encounter Medications at [...] LANCETS) 28 gauge 100 Each by [facility].(Non-Drug; Combo Route) route daily. Dx code 250.02 [...] mcg by mouth daily. multivitamin (DAILY-BRYON) Oral tabletIndications:instr ucted to stop prior to surgery Take 1 Tab by mouth daily. Indications: instructed to stop prior to surgery glimepiride (AMARYL) 1 mg tabletIndications:Type 2 diabetes mellitus without complication, without long-term current use of insulin TAKE 1 TABLET (1 MG) BY MOUTH 3 TIMES DAILY. 90 Tablet 2 06/01/2020 09/11/2020 LEVOTHYROXINE 50 mcg tabletIndications:Multi ple thyroid nodules,Primary hypothyroidism,Subclini hola hypothyroidism TAKE 1 TABLET (50 MCG) BY MOUTH DAILY REED POLISHER. 30 Tablet 3 05/22/2020 08/22/2020 insulin glargine (Lantus Solostar U-100 Insulin) 100 unit/mL pen syringe 8 units SQ in am 15 mL 2 05/05/2020 07/26/2020 Insulin [place], Disposable, (Maddi Pen Needle) 32 gauge x 5/32 Needle USE TO INJECT INSULIN ONCE DAILY 100 Each 3 05/05/2020 06/22/2021 blood sugar diagnostic (FreeStyle Lite Strips) Strip TEST BLOOD SUGARS three times A DAY DX E11.9.. 300 Strip 1 05/05/2020 12/05/2020 Invokana 100 mg TAKE 1 TABLET BY MOUTH DAILY BEFORE BREAKFAST 90 Tablet 04/24/2020 07/31/2020 SITagliptin (Januvia) 100 mg Tablet TAKE 1 TABLET DAILY WITH BREAKFAST 90 Tablet 1 01/27/2020 07/21/2020 documented as of this encounter Plan of Treatment Upcoming Encounters Date Type Department Care Team (Late st Contact Info) Description 07/12/2024 2:30 PM BUTTING SAW OPERATOR Office Visit [facility] Oncology and Hematology - [place] [address] [place] [address] Ovidio Nolen MD [address] [facility] [address] [place] [address] documented as of this encounter Procedures Procedure Name Priority Date/Time Associated Diagnosis Comments XR DEXA BONE DENSITY AXIAL 1 OR MORE SITES Routine 06/06/2020 10:40 AM BUTTING SAW OPERATOR Hyperparathyroidism, unspecified Subclinical hypothyroidism documented in this encounter Results * XR DEXA BONE DENSITY AXIAL 1 OR MORE SITES (06/06/2020 10:40 AM BUTTING SAW OPERATOR) Anatomical Region Laterality Modality Digital Radiogra phy 06/06/2020 11:0 3 AM BUTTING SAW OPERATOR Impressions 06/06/2020 11:14 AM BUTTING SAW OPERATOR IMPRESSION: This is a summary page. Please refer to the complete detailed report found in the Imaging Section of the [facility] EMR. Osteopenia. Lumbar Spine: T-Score: ??-1.5 [...] Smart MD DICTATION LOCATION: 06/06/2020 11:14 AM BUTTING SAW OPERATOR EXAMINATION: ??BONE DENSITY STUDY (DXA) DATE: 06/06/2020 10:40 AM HISTORY: 79 years Female. Postmenopausal. PROCEDURE: Planar images of the lumbar spine, hip(s) and forearm(s) using a [employer] DEXA scanner for bone mineral density determination [...] lumbar spine, hip(s) and forearm(s) using a [employer] DEXA scanner for bone mineral density determination [...] found in the Imaging Section of the [facility] EMR. Osteopenia. Lumbar Spine: T-Score: -1.5 [...] Yuliya Ibarra MD DIAGNOSTIC IMAGING O RDERABLES documented in this encounter Visit Diagnoses Diagnosis Hyperparathyroidism, unspecified Subclinical hypothyroidism Other specified acquired hypothyroidism documented in this encounter Care Teams Credit Union Examiner Relationship Specialty [place] [address] [address] PCP - General Internal Medicine 08/14/18 documented as of this encounter
--- OUTSIDE RECORDS SUMMARY | 2024-05-26 13:14 | XMS_ITS | Encounter Summary ---
Author Organization [facility] Address [address] [place] [address] Care Team Providers Care Jewelry Polisher Name Role Phone Theresa Camargo MD Primary Care Provider [phone] Reason for Visit * Reason Onset Date Comments Results 05/27/2019 Encounter Details Date Type Department Care Team (Late st Contact Info) Description 05/27/2019 Telephone [facility] Endocrinology [address] [place] [address] Yuliya Ibarra MD [address] [place] [address] Results Social History Tobacco Use [...] * Telephone Encounter - Celine Rudolph - 05/27/2019 10:00 AM CST Called spoke with patient advised MD message regarding results. Patient voiced understanding. ATTACHER WOOD * Telephone Encounter - Celine Rudolph - 05/27/2019 9:59 AM CST ----- Message from Yuliya Ibarra MD sent at 05/25/2019 4:00 PM HEEL ATTACHER WOOD ----- Her Hga1C is higher this time, but still reasonable for her age. ATTACHER WOOD documented in this encounter Plan of Treatment Upcoming Encounters Date Type Department Care Team (Late st Contact Info) Description 07/12/2024 2:30 PM HEEL ATTACHER WOOD Office Visit [facility] Oncology and Hematology - [place] [address] [facility] [address] [place] [address] Ovidio Nolen MD [address] [facility] [address] [place] [address] documented as of this encounter Visit Diagnoses Not on filedocumented in this encounter Care Teams Jewelry Polisher Relationship Specialty Start [place] [address] [facility] [address] [place] [address] PCP - General Internal Medicine 08/14/18 documented as of this encounter
--- OUTSIDE RECORDS SUMMARY | 2024-05-26 13:14 | XMS_ITS | Encounter Summary ---
Author Organization [facility] Address [address] [place] [address] Care Team Providers Care Sales Review Clerk Name Role Phone Theresa Cmaargo MD Primary Care Provider [phone] Reason for Visit * Reason Comments Medication Refill Encounter Details Date Type Department Care Team (Late Contact Info) Description 12/05/2020 Refill [facility] Endocrinology [address] [place] [address] Yuliya Ibarra MD [address] [place] [address] Social History Tobacco Use Types [...] encounter Miscellaneous Notes * Telephone Encounter - Latasha Khan - 12/05/2020 8:55 AM CDT [place]:07/26/20 Ca:11/16/20, 08/17/20 Nov:04/06/21 documented in this encounter Plan of Treatment Upcoming Encounters Date Type Department Care Team (Late st Contact Info) Description 07/12/2024 2:30 PM CHIEF OPTOMETRY SERVICE Office Visit [facility] Oncology and Hematology - [place] [address] [facility] [address] [place] [address] Ovidio Nolen MD [address] [facility] [address] [place] [address] documented as of this encounter Visit Diagnoses Not on filedocumented in this encounter Care Teams Sales Review Clerk Relationship Specialty Start [place] [address] [facility] [address] [place] [address] PCP - General Internal Medicine 08/14/18 documented as of this encounter
--- OUTSIDE RECORDS SUMMARY | 2024-05-26 13:14 | XMS_ITS | Encounter Summary ---
Author Organization [facility] Address [address] [place] [address] Care Team Providers Care Ladle Car Operator Name Role Phone Theresa Camargo MD Primary Care Provider [phone] Reason for Visit * Reason Comments Diabetes Encounter Details Date Type Department Care Team (Late st Contact Info) Description 11/15/2019 11:45 AM CDT Office Visit [facility] Endocrinology [address] [place] [address] Yuliya Ibarra MD [address] [place] [address] Type 2 diabetes mellitus without complication, without long-term current use of insulin (Primary Dx); Multiple thyroid nodules; Primary hypothyroidism; Hypercalcemia; Obesity (BMI 30.0-34.9) Social History Tobacco Use Types Packs/Day Years [...] Sign Reading Time Taken Comments Blood Pressure 124/70 11/15/2019 12:00 PM CDT Pulse 82 11/15/2019 12:00 PM CDT Temperature - - Respiratory Rate - - Oxygen Saturation - - Inhaled Oxygen Concentration - - Weight 82.6 kg (182 lb) 11/15/2019 12:00 PM CDT Height 165.1 cm (5' 5 ) 11/15/2019 12:00 PM CDT Body Mass Index 30.29 11/15/2019 12:00 PM CDT documented in this encounter Progress Notes * Yuliya Ibarra MD - 11/15/2019 12:17 PM CDT [facility] Endocrinology Yuliya Ibarra M.D. PCP: Dr. Julian Payne Finish Remover: Dr. Alexandre Reese Neurologist: Dr. Nelson Ross Singeing Torch Operator: Dr. Krishan Moran Vascular Surgeon: Dr. Elle Landaverde Sweatband Decorating Machine Operator: Dr. Laz Valencia Clerical Car Checker: Dr. Phuong Callejas Reason for visit: DM follow-up. Subjective: Last visit: 05/2019. Here w/ her daughter. Perla Leon is a 78 y.o. female with multiple medical problems, who presents to clinic for DM, thyroid nodules post left nodule FNA w/ benign results, subclinical hypothyroidism, hypercalcemia, atrial fibrillation, recent dx of breast cancer, post surgery and radiation, presents to clinic for follow-up. Patient was [...] was asked to restart Levothyroxine 25 mcg daily. Follow-up TSH was WNL. Her ultrasound, done on 10/2017, revealed interval development of suspiciousleft thyroid nodule, post FNA w/ benign results. Follow-up ultrasound, done on 09/25/2018, revealed s lightly larger nodule. Recent ultrasound, done on 10/2019, revealed stable nodule and 1 year follow-up was recommended. DM regimen: currently on Glimepiride 1 mg in am, 1 mg with lunch and 1 mg with dinner, Januvia 100 mg daily, Invokana 100 mg daily Reports higher sugars. She has tried stopping Glimepiride, but her sugars increased, had to resume. She is staying well hydrated. Glucometer: has one. Last eye exam: 3 months ago - has glaucoma. Previous meds: Levemir 6 units qhs, Could not tolerate Metformin secondary to diarrhea. Jardiance 10 mg daily. Goes to a insurance premium auditor. 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 Her DEXA scan revealed osteopenia and she was found to have normal urine calcium level. Patient was taking Triamterene/ HCTZ for her leg swelling. She denies having problems with high calcium in the past, denies nephrolithiasis, admitsto memory issues. Her last calcium level was WNL She was found to be hypokalemic, started on potassium supplements, takes KCL 40 mEq daily and her last potassium level was normal. Was hospitalized for very low potassium, takes Lasix and potassium supplements. Needs to be on a wheelchair due [...] Outpatient Medications Medication Sig Dispense Refill ??? canagliflozin (INVOKANA) 100 mg Take 1 Tablet (100 mg) by mouth daily before breakfast. 30 Tablet 1 ??? LEVOTHYROXINE 25 mcg tablet TAKE 1 TABLET DAILY IN THE MORNING BEFORE A MEAL 90 Tablet 0 ??? SITagliptin (Januvia) 100 mg Tablet TAKE 1 TABLET DAILY WITH BREAKFAST 90 Tablet 1 ??? blood sugar diagnostic (FreeStyle Lite Strips) Strip TEST BLOOD SUGARS TWICE A DAY DX E11.9.. 200 Strip 1 ??? glimepiride (AMARYL) 1 mg tablet Take 1 Tablet (1 mg) by mouth 3 times daily. 90 Tablet 2 ??? albuterol HFA 90 mcg inhaler Take [...] capsule Take 240 mg by mouth. ??? HAYDEN PEN NEEDLE 32 gauge x Needle USE TO INJECT INSULIN ONCE DAILY 100 Each 3 ??? metOLazone (ZAROXOLYN) 2.5 mg tablet Take 2.5 mg by mouth every 7 days. ??? potassium chloride (KLOR-CON) 10 mEq Extended Release tablet TAKE 4 TABLETS DAILY WITH BREAKFAST 360 Tablet 0 ??? HYPROMELLOSE (SYSTANE GEL OP) by Ophthalmic route. PRN ??? lancets (FREESTYLE LANCETS) 28 gauge 100 [...] level: Not on file Occupational History Employer: [employer] Social Needs ??? Financial resource strain: Not [...] file Gets together: Not on file Attends [employer] service: Not on file Active member of [...] ??? Cancer skin ??? CVD (cerebrovascular disease) [id number] TIA x2 ??? Diabetes no medication at [...] disorder 2000 after stroke-none since ??? Shingles [id number] x3 ??? Spondylolisthesis l4-l5 Patient Active Problem [...] 2002 dr. Valencia ??? HX HERNIA REPAIR 2009-[facility] ??? HX HYSTERECTOMY 1985 ??? HX KNEE ARTHROSCOPY [id number] right knee ??? HX SURGICAL OTHER 1975 ulcer removed from vocal cord ??? HX SURGICAL OTHER 1985 surgery for broken nose ??? HX SURGICAL OTHER 09/10/2010 ANTERIOR POSTERIOR REPAIR performed by FRANKLYN PACK at [facility] MA[facility] ??? AR ANTERIOR COLPORRAPHY RPR CYSTOCELE W/CYSTO 09/10/2010 CYSTOCELE REPAIR performed by FRANKLYN PACK at [facility] MA[facility] ??? AR POST COLPORRHAPHY,RECTUM/VAGINA 09/10/2010 RECTOCELE REPAIR performed by FRANKLYN PACK at [facility] MA[facility] ??? AR REPAIR ENTEROCELE,VAG APPRCH 09/10/2010 ENTEROCELE REPAIR VAGINAL APPROACH performed by FRANKLYN PACK at [facility] MA[facility] ??? AR REPAIR OF PERINEUM,NON OBSTETRICAL 09/10/2010 PERINEOPLASTY performed by FRANKLYN PACK at [facility] MA[facility] ??? AR REPR VAGINAL PROLAPSE,SACROSP LIG 09/10/2010 SACROSPINOUS LIGAMENT FIXATION performed by FRANKLYN PACK at [facility] Physical Findings: Wt Readings from Last 3 Encounters: 11/15/19 82.6 kg (182 lb) 05/24/19 79.4 kg (175 lb) 01/20/19 87.1 kg (192 lb) BP 124/70 Pulse 82 Ht 5' 5 (1.651 m) Wt 82.6 kg (182 lb) BMI 30.29 kg/m?? Good blood pressure for her. Physical [...] Results Component Value Date/Time HGBA1C 7.1 (H) 05/24/2019 12:45 PM Component Latest Ref Rng & Units 12/12/2016 [...] A1C 192 177 Labs via care everywhere: 8/13/17 HgA1C - 6.8% Hga1C - 6.6% - done on 06/13/16 Creatinine 0.81 Calcium 10.3 TSH 4.45 Reviewed [facility] lab result done on 04/19/14 CMP [...] 31 Lab Results Component Value Date/Time SODIUM 141 01/20/2019 11:59 AM SODIUM 142 08/14/2018 12:25 PM SODIUM 144 05/06/2018 11:57 AM POTASSIUM 3.1 (L) 01/20/2019 11:59 AM POTASSIUM 4.2 08/14/2018 12:25 PM POTASSIUM 4.4 05/06/2018 11:57 AM CHLORIDE 98 01/20/2019 11:59 AM CHLORIDE 105 08/14/2018 12:25 PM CHLORIDE 106 05/06/2018 11:57 AM CO2 32 (H) 01/20/2019 11:59 AM CO2 28 08/14/2018 12:25 PM CO2 27 05/06/2018 11:57 AM BUN 22 01/20/2019 11:59 AM BUN 16 08/14/2018 12:25 PM BUN 17 05/06/2018 11:57 AM GLUCOSE 99 01/20/2019 11:59 AM GLUCOSE 116 (H) 08/14/2018 12:25 PM GLUCOSE 114 (H) 05/06/2018 11:57 AM Lab Results Component Value Date/Time ALBUMIN 3.9 01/23/2018 01:48 PM ALBUMIN 4.2 05/02/2017 11:47 AM ALBUMIN 3.8 12/12/2016 04:14 AM CREATININE 0.86 01/20/2019 11:59 AM CREATININE 0.82 08/14/2018 12:25 PM CREATININE 0.80 05/06/2018 11:57 AM Lab Results Component Value Date/Time TSH 3.35 01/20/2019 11:59 AM TSH 3.71 03/09/2018 03:40 PM TSH 10.34 (H) 01/23/2018 01:48 PM Lab Results Component Value Date/Time VITAMIN D, [...] discussed the risk factors associated with diabetes. have encouraged diet and exercise as tolerated with her. Continue current meds for now, was able to stop insulin. Repeat Hga1C High sugars when she stopped Glimepiride. Needs to let me know if problems. Diabetes plan reviewed with patient. 2. H/o Hypercalcemia - Most likely primary hyperparathyroidism. H/o high PTH Mild osteopenia per DEXA scan. Conservative management. Needs to avoid falls. Repeat BMP, intact PTH. 3. Hypokalemia - takes Lasix at this time, KCL but needs to be monitored by a physician prescribingher diuretics. 4. Thyroid nodules, primary hypothyroidism. Post left suspicious thyroid nodule FNA w/ benign results. Stable recent ultrasound. Repeat ultrasound in a year. Repeat TSH. Patient wants to continue w/ conservative management. Patient is to call if experiences increase in her neck size/dysphagia/dyspnea/voice changes/tremors/palpitations or other problems arise. Follow-up in 6 months. >15 min of this 25 min visit was discussion/counseling. Yuliya Ibarra MD documented in this encounter Plan of Treatment Upcoming Encounters Date Type Department Care Team (Late st Contact Info) Description 07/12/2024 2:30 PM ENAMEL DRIER Office Visit [facility] Oncology and Hematology [facility] [address] [place] [address] Ovidio Nolen MD [address] [place] [address] documented as of this encounter Results * (ABNORMAL) BASIC METABOLIC PANEL (11/15/2019 12:53 PM CDT) SODIUM 137 136 - 145 mmol/L 11/15/2019 2:16 PM CDT [facility] POTASSIUM 3.4(L) 3.5 - 5.0 mmol/L 11/15/2019 2:16 PM CDT [facility] CHLORIDE 95(L) 98 - 107 mmol/L 11/15/2019 2:16 PM CDT [facility] - . [facility] CO2 28 22 - 29 mmol/L 11/15/2019 2:16 PM CDT [facility] . [facility] CALCIUM 11.3(H) 8.6 - 10.2 mg/dL 11/15/2019 2:16 PM CDT [facility] . [facility] BUN 32(H) 8 - 23 mg/dL 11/15/2019 2:16 PM CDT [facility] . [facility] CREATININE 0.92 0.51 - 0.95 mg/dL 11/15/2019 2:16 PM CDT [facility] Comment:The GFR result is no t clinically significant on patients <18 or >70 years of age. GLUCOSE 168(H) 74 - 99 mg/dL 11/15/2019 2:16 PM CDT [facility] GFR 59 mL/min/1.7 3 sq meter 11/15/2019 2:16 PM CDT [facility] Comment: eGFR has not been validated [...] 3 sq meter 11/15/2019 2:16 PM CDT [facility] ANION GAP 14 8 - 16 mmol/L 11/15/2019 2:16 PM CDT [facility] Blood Venipuncture / Unknown 11/15/2019 12:53 PM CDT 11/15/2019 1:33 PM CDT Yuliya Ibarra MD CHEMISTRY ORDERABLES [facility]# [id number] [address] [facility] [place] [address] * (ABNORMAL) PTH INTACT (11/15/2019 12:53 PM CDT) PTH INTACT 78.8(H) 15.0 - 65.0 pg/mL 11/15/2019 2:19 PM CDT [facility] Blood Venipuncture / Unknown 11/15/2019 12:53 PM CDT 11/15/2019 1:33 PM CDT Yuliya Ibarra MD CHEMISTRY ORDERABLES Performing Organization Address City/[facility]/ZIP Co de Phone Number [facility]# [id number] [address] [place] [address] * (ABNORMAL) TSH (11/15/2019 12:53 PM CDT) TSH 6.12(H) 0.27 - 4.20 uIU/mL 11/15/2019 2:16 PM CDT [facility] Blood Venipuncture / Unknown 11/15/2019 12:53 PM CDT 11/15/2019 1:33 PM CDT Yuliya Ibarra MD CHEMISTRY ORDERABLES Performing Organization Address [facility] Co de Phone Number [facility]# [id number] [address] [place] [address] * (ABNORMAL) HEMOGLOBIN A1C (11/15/2019 12:53 PM CDT) HEMOGLOBIN A1C 7.4(H) <5.7 % 11/15/2019 2:54 PM CDT [facility] EST. AVG GLUCOSE, A1C 166 mg/dL 11/15/2019 2:54 PM CDT [facility] Blood Venipuncture / Unknown 11/15/2019 12:53 PM CDT 11/15/2019 1:33 PM CDT Narrative [facility] - 11/15/2019 2:54 PM CDT HGB A1C INTERPRETATION NORMAL: ? <5.7% PRE-DIABETES: 5.7 - 6.4% DIABETES: ? 6.5% OR GREATER Yuliya Ibarra MD CHEMISTRY ORDERABLES Performing Organization Address [facility]/ZIP Co de Phone Number [facility]# [id number] [address] [place] [address] documented in this encounter Visit Diagnoses Diagnosis Type 2 diabetes mellitus without complication, without long-term current use of insulin- Primary Multiple thyroid nodules Nontoxic multinodular goiter Primary hypothyroidism Unspecified hypothyroidism Hypercalcemia Obesity (BMI 30.0-34.9) Obesity, unspecified documented in this encounter Care Teams Ladle Car Operator Relationship Specialty [place] [id number] [address] PCP - General Internal Medicine 08/14/18 documented as of this encounter
--- OUTSIDE RECORDS SUMMARY | 2024-05-26 13:14 | XMS_ITS | Encounter Summary ---
Author Organization [facility] Address [address] Oliveira: Epic Prelude ADT [place] [address] Care Team Providers Care Grief Counsellor Name Role Phone Theresa Camargo MD Primary Care Provider [phone] Encounter Details Date Type Department Care Team (Latest Contact Info) Description 11/08/2019 Travel Social History Tobacco Use Types Packs/Day [...] st Contact Info) Description 07/12/2024 2:30 PM COMBAT INFORMATION CENTER OFFICER Office Visit [facility] Oncology and Hematology - [place] [address] [facility] [address] [place] [address] Ovidio Nolen MD [address] [place] [address] documented as of this encounter Visit Diagnoses Not on filedocumented in this encounter Care Teams Grief Counsellor Relationship Specialty [place] [id number] [address] PCP - General Internal Medicine 08/14/18 documented as of this encounter
--- OUTSIDE RECORDS SUMMARY | 2024-05-26 13:14 | XMS_ITS | Encounter Summary ---
Author Organization [facility] Address [address] [place] [address] Care Team Providers Care Casing Sewer Name Role Phone Theresa Camargo MD Primary Care Provider [phone] Reason for Visit * Reason Comments Diabetes Encounter Details Date Type Department Care Team (Late st Contact Info) Description 05/05/2020 10:45 AM CONSOLE ASSEMBLER Office Visit [facility] Endocrinology [email or web address] [place] [address] Yuliya Ibarra MD [email or web address] [place] [address] Type 2 diabetes mellitus not at goal (Primary Dx); Primary hypothyroidism; Multiple thyroid nodules; BMI 29.0-29.9,adult Social History Tobacco Use Types Packs/Day Years [...] have Coronavirus / COVID-19? No / Unsure 05/05/2020 10:48 AM CONSOLE ASSEMBLER documented as of this encounter Last Filed Vital Signs Vital Sign Reading Time Taken Comments Blood Pressure 118/70 05/05/2020 10:58 AM CONSOLE ASSEMBLER Pulse 71 05/05/2020 10:58 AM CONSOLE ASSEMBLER Temperature - - Respiratory Rate - - Oxygen Saturation - - Inhaled Oxygen Concentration - - Weight 79.8 kg (176 lb) 05/05/2020 10:58 AM CONSOLE ASSEMBLER Height 165.1 cm (5' 5 ) 05/05/2020 10:58 AM CONSOLE ASSEMBLER Body Mass Index 29.29 05/05/2020 10:58 AM CONSOLE ASSEMBLER documented in this encounter Progress Notes * Yuliya Ibarra MD - 05/05/2020 11:07 AM CST [facility] Endocrinology Yuliya Ibarra M.D. PCP: Dr. Julian Payne Director Of Learning: Dr. Alexandre Reese Neurologist: Dr. Nelson Ross Dyeing Machine Back Tender: Dr. Krishan Moran Vascular Surgeon: Dr. Elle Landaverde Leak Inspector: Dr. Laz Valencia Outbound Sales Agent: Dr. Phuong Callejas Reason for visit: DM follow-up. Subjective: . [...] was asked to restart Levothyroxine 25 mcg daily.Follow-up TSH was WNL. Her ultrasound, done on 10/2017, revealed interval development of suspicious left thyroid nodule, post FNA w/ benign results. Follow-up ultrasound, done on 09/25/2018, revealed sl ightly larger nodule. Recent ultrasound, done on 10/2019, revealed stable nodule and 1 year follow-up was recommended. DM regimen: currently on Glimepiride 2 mg in am, 2 mg with lunch and 1 mg with dinner, Januvia 100 mg daily, Invokana 100 mg daily Reports higher sugars lately, reviewed. She has tried stopping Glimepiride, but her sugars increased, had to resume. She is staying well hydrated. Glucometer: has one. Last eye exam: 3 months ago - has glaucoma. Previous meds: Levemir 6 units qhs, Could not tolerate Metformin secondary to diarrhea. Jardiance 10 mg daily. Goes to a senior speech pathologist. 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 Her DEXA scan revealed osteopenia and she was found to have normal urine calcium level. Patient was taking Triamterene/ HCTZ for her leg swelling. She denies having problems with high calcium in the past, denies nephrolithiasis, admitsto memory issues. Her last calcium level was elevated - 11.1 She was found to be hypokalemic, started [...] Outpatient Medications Medication Sig Dispense Refill ??? flecainide (TAMBOCOR) 50 mg Tablet Take 50 mg by mouth. ??? glimepiride (AMARYL) 1 mg tablet Take 2 tablets (2 mg) at breakfast and lunch. Take 1 tablet (1mg) at dinner. 150 Tablet 0 ??? Invokana 100 mg TAKE 1 TABLET BY MOUTH DAILY BEFORE BREAKFAST 90 Tablet 0 ??? LEVOTHYROXINE 50 mcg tablet TAKE 1 TABLET (50 MCG) BY MOUTH DAILY MANAGER ROOM. 30 Tablet 2 ??? SITagliptin (Januvia) 100 mg Tablet TAKE 1 TABLET DAILY WITH BREAKFAST 90 Tablet 1 ??? blood sugar diagnostic (FreeStyle Lite Strips) Strip TEST BLOOD SUGARS TWICE A DAY DX E11.9.. 200 Strip 1 ??? albuterol HFA 90 mcg inhaler Take [...] level: Not on file Occupational History Employer: [employer] Social Needs ??? Financial resource strain: Not [...] file Gets together: Not on file Attends restorationism service: Not on file Active member of [...] ??? Cancer skin ??? CVD (cerebrovascular disease) 8029-7722 TIA x2 ??? Diabetes no medication at present ??? Duodenal ulcer 1977 ??? 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 Shingles [id number] x3 ??? Spondylolisthesis l4-l5 Patient Active Problem [...] 2002 dr. Valencia ??? HX HERNIA REPAIR 2009-[facility] ??? HX HYSTERECTOMY 1986 ??? HX KNEE ARTHROSCOPY [id number] right knee ??? HX SURGICAL OTHER 1975 ulcer removed from vocal cord ??? HX SURGICAL OTHER 1985 surgery for broken nose ??? HX SURGICAL OTHER 09/10/2010 ANTERIOR POSTERIOR REPAIR performed by FRANKLYN PACK at [facility] OR [facility] ??? MN ANTERIOR COLPORRAPHY RPR CYSTOCELE W/CYSTO 09/10/2010 CYSTOCELE REPAIR performed by FRANKLYN PACK at [facility] OR MAIN ??? MN POST COLPORRHAPHY,RECTUM/VAGINA 09/10/2010 RECTOCELE REPAIR performed by FRANKLYN PACK at [facility] OR [facility] ??? MN REPAIR ENTEROCELE,VAG APPRCH 09/10/2010 ENTEROCELE REPAIR VAGINAL APPROACH performed by FRANKLYN PACK at [facility] OR MAIN ??? MN REPAIR OF PERINEUM,NON OBSTETRICAL 09/10/2010 PERINEOPLASTY performed by FRANKLYN PACK at [facility] OR MAIN ??? MN REPR VAGINAL PROLAPSE,SACROSP LIG 09/10/2010 SACROSPINOUS LIGAMENT FIXATION performed by FRANKLYN PACK at [facility] OR MAIN Physical Findings: Wt Readings from Last 3 Encounters: 05/05/20 79.8 kg (176 lb) 11/15/19 82.6 kg (182 lb) 05/24/19 79.4 kg (175 lb) BP 118/70 Pulse 71 Ht 5' 5 (1.651 m) Wt 79.8 kg (176 lb) BMI 29.29 kg/m?? Good blood pressure for [...] 7.0% Lab Results Component Value Date/Time HGBA1C 7.4 (H) 11/15/2019 12:53 PM 02/2020 Hga1C 7.3% Calcium 11.1 Component [...] Creatinine 0.81 Calcium 10.3 TSH 4.45 Reviewed [facility] lab result done on 04/19/14 CMP [...] Lab Results Component Value Date/Time SODIUM 137 11/15/2019 12:53 PM SODIUM 141 01/20/2019 11:59 AM SODIUM 142 08/14/2018 12:25 PM POTASSIUM 3.4 (L) 11/15/2019 12:53 PM POTASSIUM 3.1 (L) 01/20/2019 11:59 AM POTASSIUM 4.2 08/14/2018 12:25 PM CHLORIDE 95 (L) 11/15/2019 12:53 PM CHLORIDE 98 01/20/2019 11:59 AM CHLORIDE 105 08/14/2018 12:25 PM CO2 28 11/15/2019 12:53 PM CO2 32 (H) 01/20/2019 11:59 AM CO2 28 08/14/2018 12:25 PM BUN 32 (H) 11/15/2019 12:53 PM BUN 22 01/20/2019 11:59 AM BUN 16 08/14/2018 12:25 PM GLUCOSE 168 (H) 11/15/2019 12:53 PM GLUCOSE 99 01/20/2019 11:59 AM GLUCOSE 116 (H) 08/14/2018 12:25 PM Lab Results Component Value Date/Time ALBUMIN 3.9 01/23/2018 01:48 PM ALBUMIN 4.2 05/02/2017 11:47 AM ALBUMIN 3.8 12/12/2016 04:14 AM CREATININE 0.92 11/15/2019 12:53 PM CREATININE 0.86 01/20/2019 11:59 AM CREATININE 0.82 08/14/2018 12:25 PM Lab Results Component Value Date/Time TSH 6.12 (H) 11/15/2019 12:53 PM TSH 3.35 01/20/2019 11:59 AM TSH 3.71 03/09/2018 03:40 PM Lab Results Component Value Date/Time VITAMIN [...] Final result ?Visible to patient: Yes (MyChart) Component FINAL DIAGNOSIS Thyroid, left, FNA, cytology: [...] tolerated with her. Continue current meds for now + add Lantus 8 units in am. She may require short acting insulin as well based on numbers, then will stop oral meds. Asked to check sugars and send me her logs in a week or so. Patient was educated on insulin use as well as diabetic diet. Repeat Hga1C before next visit. 2. H/o Hypercalcemia - Most likely primary hyperparathyroidism. H/o high PTH Mild osteopenia per DEXA scan. Conservative management. Needs to avoid falls. Repeat BMP before next visit. Will monitor calcium. 3. Hypokalemia - takes Lasix at this time, KCL but needs to be monitored by a physician prescribingher diuretics. 4. Thyroid nodules, primary hypothyroidism. Post left suspicious thyroid nodule FNA w/ benign results. Stable recent ultrasound. Repeat ultrasound in October/2020. Repeat TSH before next visit. Patient wants to continue w/ conservative management. Patient is to call if experiences increase in her neck size/dysphagia/dyspnea/voice changes/tremors/palpitations or other problems arise. Follow-up in 3 months. >15 min of this 25 min visit was discussion/counseling. Yuliya Ibarra MD OLE ASSEMBLER documented in this encounter Plan of Treatment Upcoming Encounters Date Type Department Care Team (Late st Contact Info) Description 07/12/2024 2:30 PM CONSOLE ASSEMBLER Office Visit [facility] Oncology and Hematology - [place] [address] [facility] [facility] [address] [place] [address] Ovidio Nolen MD [address] [facility] [address] [place] [address] documented as of this encounter Procedures Procedure Name Priority Date/Time Associated Diagnosis Comments TSH Routine 05/05/2020 1:54 PM CONSOLE ASSEMBLER Type 2 diabetes mellitus not at goal HEMOGLOBIN A1C Routine 05/05/2020 1:54 PM CONSOLE ASSEMBLER Type 2 diabetes mellitus not at goal BASIC METABOLIC PANEL Routine 05/05/2020 1:54 PM CONSOLE ASSEMBLER Type 2 diabetes mellitus not at goal documented in this encounter Results * TSH (05/05/2020 1:54 PM CONSOLE ASSEMBLER) TSH 2.73 0.40 - 4.50 mIU/L [facility] Comment: Test Performed at: [facility] [address] [place], [place] ??[phone] Russell Colin D.O., MPH Blood 05/05/2020 1:54 PM CONSOLE ASSEMBLER Yuliya Ibarra MD CHEMISTRY ORDERABLES [facility] [address] [place] [address] * (ABNORMAL) BASIC METABOLIC PANEL (05/05/2020 1:54 PM CONSOLE ASSEMBLER) GLUCOSE 177(H) 65 - 99 mg/dL [facility] Comment: ? Fasting reference interval For someone without known diabetes, a glucose value >125 mg/dL indicates that they may have diabetes and this should be confirmed with a follow-up test. BUN 29(H) 7 - 25 mg/dL [facility] CREATININE 1.12(H) 0.60 - 0.88 mg/dL [facility] Comment: For patients >49 years of age, the reference limit for Creatinine is approximately 13% higher for people identified as -Burmese. GFR 46(L) > OR = 60 mL/min/1. 73m2 [facility] GFR, 53(L) > OR = 60 mL/min/1. 73m2 [facility] BUN/CREAT RATIO 26(H) 6 - 22 (calc) [facility] SODIUM 137 135 - 146 mmol/L [facility] POTASSIUM 3.2(L) 3.5 - 5.3 mmol/L [facility] CHLORIDE 95(L) 98 - 110 mmol/L [facility] CO2 32 20 - 32 mmol/L [facility] CALCIUM 11.5(H) 8.6 - 10.4 mg/dL [facility] Comment: Test Performed at: [facility] [address] [place], [place] ??[address] Russell Colin D.O., MPH Blood 05/05/2020 1:54 PM CONSOLE ASSEMBLER Yuliya Ibarra MD CHEMISTRY ORDERABLES [facility] [address] [place] [address] * (ABNORMAL) HEMOGLOBIN A1C (05/05/2020 1:54 PM CONSOLE ASSEMBLER) HEMOGLOBIN A1C 7.1(H) <5.7 % of total Hgb [facility] Comment: For someone without known diabetes, [...] of diabetes for children. Test Performed at: [facility] [address] [place], [place] ??[address] Russell Colin D.O., MPH Blood 05/05/2020 1:54 PM CONSOLE ASSEMBLER Yuliya Ibarra MD CHEMISTRY ORDERABLES [facility] [address] [place] [address] documented in this encounter Visit Diagnoses Diagnosis Type 2 diabetes mellitus not at goal- Primary Type II or unspecified type diabetes mellitus without mention of complication, uncontrolled Primary hypothyroidism Unspecified hypothyroidism Multiple thyroid nodules Nontoxic multinodular goiter BMI 29.0-29.9,adult Body Mass Index 29.0-29.9, adult documented in this encounter Care Teams Casing Sewer Relationship Specialty [place] [address] [address] PCP - General Internal Medicine 08/14/18 documented as of this encounter
--- OUTSIDE RECORDS SUMMARY | 2024-05-26 13:14 | XMS_ITS | Encounter Summary ---
Author Organization [facility] Address [address] Oliveira: Epic Prelude ADT [place] [address] Care Team Providers Care Frame Gate Mortiser Operator Name Role Phone Theresa Camargo MD Primary Care Provider [phone] Encounter Details Date Type Department Care Team (Latest Contact Info) Description 10/26/2019 Travel Social History Tobacco Use Types Packs/Day [...] st Contact Info) Description 07/12/2024 2:30 PM NUMERICAL CONTROL MACHINE MACHINIST Office Visit [facility] Oncology and Hematology - [place] [address] [facility] [address] [place] [address] Ovidio Nolen MD [address] [facility] [address] [place] [address] documented as of this encounter Visit Diagnoses Not on filedocumented in this encounter Care Teams Frame Gate Mortiser Operator Relationship Specialty [place] [address] [address] PCP - General Internal Medicine 08/14/18 documented as of this encounter
--- OUTSIDE RECORDS SUMMARY | 2024-05-26 13:14 | XMS_ITS | Encounter Summary ---
Author Organization [facility] Address [address] Oliveira: Epic Prelude ADT [place] [address] Care Team Providers Care Business Services Specialist Sales Name Role Phone Theresa Camargo MD Primary Care Provider [phone] Encounter Details Date Type Department Care Team (Latest Contact Info) Description 11/15/2019 Travel Social History Tobacco Use Types Packs/Day [...] st Contact Info) Description 07/12/2024 2:30 PM VULCANIZED FIBER UNIT OPERATOR Office Visit [facility] Oncology and Hematology - [place] [address] [facility] [address] [place] [address] Ovidio Nolen MD [address] [facility] [address] [place] [address] documented as of this encounter Visit Diagnoses Not on filedocumented in this encounter Care Teams Business Services Specialist Sales Relationship Specialty [place] [address] [address] PCP - General Internal Medicine 08/14/18 documented as of this encounter
--- OUTSIDE RECORDS SUMMARY | 2024-05-26 13:14 | XMS_ITS | Encounter Summary ---
Author Organization [facility] Address [address] [place] [address] Care Team Providers Care Deputy Harbormaster Name Role Phone Theresa Camargo MD Primary Care Provider [phone] Reason for Visit * Reason Comments Medication Refill Encounter Details Date Type Department Care Team (Late st Contact Info) Description 07/20/2020 Refill [facility] Endocrinology [address] [place] [address] Yuliya Ibarra MD [address] [place] [address] Social History Tobacco Use Types [...] * Telephone Encounter - Yoselin Vázquez - 07/21/2020 8:18 AM CST JOSE G: 05/05/2020 NOV: 08/17/2020 LE CUT OFF SAW OPERATOR documented in this encounter Plan of Treatment Upcoming Encounters Date Type Department Care Team (Late st Contact Info) Description 07/12/2024 2:30 PM DOUBLE CUT OFF SAW OPERATOR Office Visit [facility] Oncology and Hematology - [place] [address] [facility] [address] [place] [address] Ovidio Nolen MD [address] [facility] [address] [place] [address] documented as of this encounter Visit Diagnoses Not on filedocumented in this encounter Care Teams Deputy Harbormaster Relationship Specialty Start [place] [address] [facility] [address] [place] [address] PCP - General Internal Medicine 08/14/18 documented as of this encounter
--- OUTSIDE RECORDS SUMMARY | 2024-05-26 13:14 | XMS_ITS | Encounter Summary ---
Author Organization [facility] Address [address] [place] [address] Care Team Providers Care Manager Process Excellence Name Role Phone Theresa Camargo MD Primary Care Provider [phone] Reason for Visit * Reason Comments Medication Refill Encounter Details Date Type Department Care Team (Late st Contact Info) Description 04/03/2021 Refill [facility] Endocrinology [address] [place] [address] Yuliya Ibarra MD [address] [place] [address] Social History Tobacco Use Types [...] * Telephone Encounter - Yoselin Vázquez - 04/04/2021 11:10 AM CST JOSE G: 07/26/2020 CA: 08/17/2020, 11/16/2020 NOV: 04/06/2021 filled 03/05/2021 90day INE ENGINE ASSEMBLER documented in this encounter Plan of Treatment Upcoming Encounters Date Type Department Care Team (Late st Contact Info) Description 07/12/2024 2:30 PM TURBINE ENGINE ASSEMBLER Office Visit [facility] Oncology and Hematology - [place] [address] [facility] [address] [place] [address] Ovidio Nolen MD [address] [facility] [address] [place] [address] documented as of this encounter Visit Diagnoses Not on filedocumented in this encounter Care Teams Manager Process Excellence Relationship Specialty Start [place] [address] [facility] [address] [place] [address] PCP - General Internal Medicine 08/14/18 documented as of this encounter
--- OUTSIDE RECORDS SUMMARY | 2024-05-26 13:14 | XMS_ITS | Encounter Summary ---
Author Organization [facility] Address [address] [place] [address] Care Team Providers Care Riding Silks Custodian Name Role Phone Theresa Camargo MD Primary Care Provider [phone] Reason for Referral * Radiology Services (Routine) - Closed Specialty Diagnoses / Procedures Referred By Alejandrina t Referred To Contact Ultrasound Diagnoses Multiple thyroid nodules Procedures US HEAD NECK TISSUES Yuliya Ibarra MD [address] [place] [address] [facility] Ultrasound [address] [address] Referral ID Status Reason Start Date Expiration Date V isits Requested Visits Authorized [id number] Closed STL CTS 05/24/2019 06/23/2020 1 1 IC ARTS SUPERVISOR Reason for Visit * Reason Comments Diabetes Encounter Details Date Type Department Care Team (Late st Contact Info) Description 05/24/2019 11:45 AM SCENIC ARTS SUPERVISOR Office Visit [facility] Endocrinology [address] [place] [address] Yuliya Ibarra MD [address] [place] [address] Type 2 diabetes mellitus without complication, without long-term current use of insulin (Primary Dx); Multiple thyroid nodules; Primary hypothyroidism; Hypercalcemia Social History Tobacco Use Types Packs/Day [...] Sign Reading Time Taken Comments Blood Pressure 116/76 05/24/2019 11:52 AM SCENIC ARTS SUPERVISOR Pulse 84 05/24/2019 11:52 AM SCENIC ARTS SUPERVISOR Temperature - - Respiratory Rate - - Oxygen Saturation - - Inhaled Oxygen Concentration - - Weight 79.4 kg (175 lb) 05/24/2019 11:52 AM SCENIC ARTS SUPERVISOR Height 165.1 cm (5' 5 ) 05/24/2019 11:52 AM SCENIC ARTS SUPERVISOR Body Mass Index 29.12 05/24/2019 11:52 AM SCENIC ARTS SUPERVISOR documented in this encounter Progress Notes * Yuliya Ibarra MD - 05/24/2019 11:[address] [facility] Endocrinology Yuliya Ibarra M.D. PCP: Dr. Julian Payne Air Intercept Controller: Dr. Alexandre Reese Neurologist: Dr. Nelson Ross Vice President Sales And Marketing: Dr. Krishan Moran Vascular Surgeon: Dr. Elle Landaverde Tooling Inspector: Dr. Laz Valencia Insurance Office Supervisor: Dr. Phuong Callejas Reason for visit: DM follow-up. Subjective: Peral Leon is a 78 y.o. female with [...] on 09/25/2018, revealed sl ightly larger nodule. DM regimen: currently on Glimepiride 1 mg in am, 1 mg with lunch and 1 mg with dinner, Januvia 100 mg daily, Jardiance 10 mg daily. Reports fair glucose control at this time, but has spikes in her blood sugars. She has tried stopping Glimepiride, but her sugars increased. She is staying well hydrated. Glucometer: has one. Last eye exam: 3 months ago - has glaucoma. Previous meds: Levemir 6 units qhs, Could not tolerate Metformin secondary to diarrhea. Goes to a florist's decorator. Patient was found to have hypercalcemia, parathyroid [...] last potassium level was normal. Was hospitalized recently for very low potassium, takes Lasix and potassium supplements. Will be seeing her primary care doc. She is using a walker and she is experiencing frequent falls. Review of Systems: Endo/Gen: She: denies polyuria/polydipsia/nocturia, [...] Outpatient Medications Medication Sig Dispense Refill ??? LEVOTHYROXINE 25 mcg tablet TAKE 1 TABLET DAILY IN THE MORNING BEFORE A MEAL 90 Tablet 1 ??? glimepiride (AMARYL) 1 mg tablet Take 1 Tablet (1 mg) by mouth 3 times daily. 90 Tablet 2 ??? SITagliptin (JANUVIA) 100 mg Tablet TAKE 1 TABLET DAILY WITH BREAKFAST 90 Tablet 1 ??? blood sugar diagnostic (FREESTYLE LITE STRIPS) Strip TEST BLOOD SUGARS TWICE A DAY DX E11.9.. 200 Strip 1 ??? empagliflozin (JARDIANCE) 10 mg tablet Take 1 Tablet (10 mg) by mouth daily loader malt house. 90 Tablet 1 ??? albuterol HFA 90 mcg inhaler [...] ??? HAYDEN PEN NEEDLE 32 gauge x 532 Needle USE TO INJECT INSULIN ONCE DAILY 100 Each 3 ??? metOLazone (ZAROXOLYN) 2.5 mg tablet Take 2.5 mg by mouth every 7 days. ??? potassium chloride (KLOR-CON) 10 mEq Extended Release tablet TAKE 4 TABLETS DAILY WITH BREAKFAST 360 Tablet 0 ??? HYPROMELLOSE (SYSTANE GEL OP) by Ophthalmic route. PRN ??? lancets (FREESTYLE LANCETS) 28 gauge 100 Each by [facility].(Non-Drug; Combo Route) route daily. Dx code 250.02 [...] level: Not on file Occupational History Employer: [employer] Social Needs ??? Financial resource strain: Not on file ??? Food insecurity: Worry: Not on file Inability: Not on file ??? Transportation needs: Medical: Not on file Non-medical: Not on file Tobacco Use ??? Smoking status: Never Smoker Substance and Sexual Activity ??? Alcohol use: No ??? Drug use: No ??? Sexual activity: Not on file Comment: hyst Lifestyle ??? Physical activity: Days per week: [...] ??? Cancer skin ??? CVD (cerebrovascular disease) 6391-7579 TIA x2 ??? Diabetes no medication at [...] disorder 2000 after stroke-none since ??? Shingles [phone] x3 ??? Spondylolisthesis l4-l5 Patient Active Problem [...] 2002 dr. Valencia ??? HX HERNIA REPAIR 2009-[facility] [place] ??? HX HYSTERECTOMY 1985 ??? HX KNEE ARTHROSCOPY [id number] right knee ??? HX SURGICAL OTHER 1975 ulcer removed from vocal cord ??? HX SURGICAL OTHER 1985 surgery for broken nose ??? HX SURGICAL OTHER 09/10/2010 ANTERIOR POSTERIOR REPAIR performed by FRANKLYN PACK at [facility] ??? [place] ANTERIOR COLPORRAPHY RPR CYSTOCELE W/CYSTO 09/10/2010 CYSTOCELE REPAIR performed by FRANKLYN PACK at [facility] ??? [place] POST COLPORRHAPHY,RECTUM/VAGINA 09/10/2010 RECTOCELE REPAIR performed by FRANKLYN PACK at [facility] ??? [place] REPAIR ENTEROCELE,VAG APPRCH 09/10/2010 ENTEROCELE REPAIR VAGINAL APPROACH performed by FRANKLYN PACK at [facility] ??? [place] REPAIR OF PERINEUM,NON OBSTETRICAL 09/10/2010 PERINEOPLASTY performed by FRANKLYN PACK at [facility] ??? [place] REPR VAGINAL PROLAPSE,SACROSP LIG 09/10/2010 SACROSPINOUS LIGAMENT FIXATION performed by FRANKLYN PACK at [facility] Physical Findings: Wt Readings from Last 3 Encounters: 05/24/19 79.4 kg (175 lb) 01/20/19 87.1 kg (192 lb) 08/14/18 85.7 kg (189 lb) BP 116/76 Pulse 84 Ht 5' 5 (1.651 m) Wt 79.4 kg (175 lb) BMI 29.12 kg/m?? Good blood pressure for her. Physical [...] 7.0% Lab Results Component Value Date/Time HGBA1C 5.9 (H) 01/20/2019 11:59 AM Component Latest Ref Rng & Units 12/12/2016 [...] Creatinine 0.81 Calcium 10.3 TSH 4.45 Reviewed [facility] lab result done on 04/19/14 CMP - [...] right thyroid lobe nodule is stable. ?? 09/25/18 thyroid ultrasound: US HEAD NECK TISSUES [...] scan. Conservative management. Needs to avoid falls. 3. Hypokalemia - takes Lasix at this time, KCL but needs to be monitored by a physician prescribingher diuretics. Would change to potassium sparing diuretics if possible. 4. Thyroid nodules, primary hypothyroidism. Post left suspicious thyroid nodule FNA w/ benign results. Repeat thyroid ultrasound revealed slightly larger nodule. Repeat TSH. Patient wants to continue w/ conservative management. Will repeat her next ultrasound around September/2019 Patient is to call if experiences increase in her neck size/dysphagia/dyspnea/voice changes/tremors/palpitations or other problems arise. Follow-up in 4 months. >15 min of this 25 min visit was discussion/counseling. Yuliya Ibarra MD IC ARTS SUPERVISOR documented in this encounter Plan of Treatment Upcoming Encounters Date Type Department Care Team (Late st Contact Info) Description 07/12/2024 2:30 PM SCENIC ARTS SUPERVISOR Office Visit [facility] Oncology and Hematology - [place] [address] [facility] [address] [place] [address] Ovidio Nolen MD [address] [facility] [address] [place] [address] documented as of this encounter Results * US HEAD NECK TISSUES (11/08/2019 10:10 AM CDT) Anatomical Region Laterality Modality Head Ultrasound 11/08/2019 10:1 3 AM CDT Impressions 11/08/2019 10:54 AM CDT IMPRESSION: Left lower pole nodule is not larger. Follow-up in one year is recommended. DICTATION LOCATION: Location 4 Narrative 11/08/2019 10:54 AM CDT ULTRASOUND OF THE THYROID DATE: 11/08/2019 10:10 AM HISTORY: ?? Multiple thyroid nodules COMPARISON: September 25, 2018 FINDINGS: ??Multiple transverse, longitudinal and oblique images of the thyroid were obtained. The right lobe measures 3.7 x 1.9 x 1.6 cm and the left lobe measures 3.7 x 1.4 x 1.4 cm, both lobes within normal limits. ?? Again noted are bilateral small colloid cysts. A solid nodule in the left lower pole measures 6 x 6 x 4 mm (previously 7 x 7 x 6 mm). INCIDENTAL FINDINGS: ??None. Procedure Note Alicia Reyes MD - 11/08/2019 ULTRASOUND OF THE THYROID DATE: 11/08/2019 10:10 AM HISTORY: Multiple thyroid nodules COMPARISON: September 25, 2018 FINDINGS: Multiple transverse, longitudinal and oblique images of the thyroid were obtained. The right lobe measures 3.7 x 1.9 x 1.6 cm and the left lobe measures 3.7 x 1.4 x 1.4 cm, both lobes within normal limits. Again noted are bilateral small colloid cysts. A solid nodule in the left lower pole measures 6 x 6 x 4 mm (previously 7 x 7 x 6 mm). INCIDENTAL FINDINGS: None. IMPRESSION: Left lower pole nodule is not larger. Follow-up in one year is recommended. DICTATION LOCATION: Location 4 Yuliya Ibarra MD US ORDERABLES * (ABNORMAL) HEMOGLOBIN A1C (05/24/2019 12:45 PM SCENIC ARTS SUPERVISOR) HEMOGLOBIN A1C 7.1(H) <5.7 % 05/25/2019 5:52 AM SCENIC ARTS SUPERVISOR [employer] [facility] EST. AVG GLUCOSE, A1C 157 mg/dL 05/25/2019 5:52 AM SCENIC ARTS SUPERVISOR [facility] [employer] [facility] Blood Venipuncture / Unknown 05/24/2019 12:45 PM SCENIC ARTS SUPERVISOR 05/24/2019 12:58 PM SCENIC ARTS SUPERVISOR Narrative [facility] - 05/25/2019 5:52 AM SCENIC ARTS SUPERVISOR HGB A1C INTERPRETATION NORMAL: ? <5.7% PRE-DIABETES: 5.7 - 6.4% DIABETES: ? 6.5% OR GREATER Yuliya Ibarra MD CHEMISTRY ORDERABLES [facility] [employer] [facility]# [id number] [address] [place] [address] documented in this encounter Visit Diagnoses Diagnosis Type 2 diabetes mellitus without complication, without long-term current use of insulin- Primary Multiple thyroid nodules Nontoxic multinodular goiter Primary hypothyroidism Unspecified hypothyroidism Hypercalcemia Multiple thyroid nodules Nontoxic multinodular goiter documented in this encounter Care Teams Riding Silks Custodian Relationship Specialty [place] [address] [phone] PCP - General Internal Medicine 08/14/18 documented as of this encounter
--- OUTSIDE RECORDS SUMMARY | 2024-05-26 13:14 | XMS_ITS | Encounter Summary ---
Author Organization [facility] Address [address] [place] [address] Care Team Providers Care It Admin Name Role Phone Theresa Camargo MD Primary Care Provider Reason for Visit * Reason Comments Medication Refill Encounter Details Date Type Department Care Team (Late st Contact Info) Description 03/09/2021 Refill [facility] Endocrinology [address] [place] [address] Yuliya Ibarra MD [address] [place] [address] Type 2 diabetes mellitus without [...] * Telephone Encounter - Yoselin Vázquez - 03/09/2021 9:29 AM CDT JOSE G: 07/26/2020 CA: 08/17/2020, 11/16/2020 NOV: 04/06/2021 documented in this encounter Plan of Treatment Upcoming Encounters Date Type Department Care Team (Late st Contact Info) Description 07/12/2024 2:30 PM SALES SUPPORT MANAGER Office Visit [facility] Oncology and Hematology - [place] [address] [facility] [address] [place] [address] Ovidio Nolen MD [address] [facility] [address] [place] [address] documented as of this encounter Visit Diagnoses Diagnosis Type 2 diabetes mellitus without complication, without long-term current use of insulin documented in this encounter Care Teams It Admin Relationship Specialty [place] [address] [phone] PCP - General Internal Medicine 08/14/18 documented as of this encounter
--- OUTSIDE RECORDS SUMMARY | 2024-05-26 13:14 | XMS_ITS | Encounter Summary ---
Author Organization [facility] Address [address] [place] [address] Care Team Providers Care Medical Insurance Clerk Name Role Phone Theresa Camargo MD Primary Care Provider [phone] Reason for Visit * Reason Onset Date Comments Diabetes 04/19/2020 bg ? Encounter Details Date Type Department Care Team (Late st Contact Info) Description 04/19/2020 Telephone [facility] Endocrinology [address] [place] [address] Yuliya Ibarra MD [address] [place] [address] Diabetes (bg ?) Social History Tobacco Use Types Packs/Day Years Used Date Smoking Tobacco: Never Alcohol Use Standard Drinks/Week Comments No 0 (1 standard drink = 0.6 oz pur e alcohol) Sex and Gender Information Value Date Recorded Sex Assigned at Not on file Gender Identity Not on file Sexual Orientation Not on file documented as of this encounter Miscellaneous Notes * Telephone Encounter - Kelly Mchugh RN - 04/19/2020 3:20 PM CST This was the other daughter calling Will see bg when she sends them in ATED PAD BUFFER * Telephone Encounter - Yuliya Ibarra MD - 04/19/2020 12:57 PM CST I thought this was already addressed via [employer]. ATED PAD BUFFER * Telephone Encounter - Kelly Mchugh, RN - 04/19/2020 11:58 AM CST Pt daughter mary called lab bg was 300 and a1c 7.3 Had not been checking bg Asked her to have her mom check before meals and hs send in bg via [employer] Friday She has been taking the dm meds Fu may 01 ATED PAD BUFFER documented in this encounter Plan of Treatment Upcoming Encounters Date Type Department Care Team (Late st Contact Info) Description 07/12/2024 2:30 PM INFLATED PAD BUFFER Office Visit [facility] Oncology and Hematology - [place] [address] [address] [facility] [address] [place] [address] Ovidio Nolen MD [address] [facility] [address] [place] [address] documented as of this encounter Visit Diagnoses Not on filedocumented in this encounter Care Teams Medical Insurance Clerk Relationship Specialty [place] [address] [facility] [address] [place] [address] PCP - General Internal Medicine 08/14/18 documented as of this encounter
--- OUTSIDE RECORDS SUMMARY | 2024-05-26 13:14 | XMS_ITS | Encounter Summary ---
Author Organization [facility] Address [address] Oliveira: Epic Prelude ADT [place] [address] Care Team Providers Care Fabricator Special Items Name Role Phone Theresa Camargo MD Primary Care Provider [phone] Encounter Details Date Type Department Care Team (Latest Contact Info) Description 10/12/2019 Travel Social History Tobacco Use Types Packs/Day [...] have Coronavirus / COVID-19? No / Unsure 10/12/2019 9:36 AM CDT documented as of this encounter Plan of Treatment Upcoming Encounters Date Type Department Care Team (Late st Contact Info) Description 07/12/2024 2:30 PM REMOTE RECRUITER Office Visit [facility] Oncology and Hematology - [place] [address] [facility] [address] [place] [address] Ovidio Nolen MD [address] [facility] [address] [place] [address] documented as of this encounter Visit Diagnoses Not on filedocumented in this encounter Care Teams Fabricator Special Items Relationship Specialty [place] [address] [address] PCP - General Internal Medicine 08/14/18 documented as of this encounter
--- OUTSIDE RECORDS SUMMARY | 2024-05-26 13:14 | XMS_ITS | Encounter Summary ---
Author Organization [employer] Address [address] [place] [address] Care Team Providers Care Precision Millwright Name Role Phone Theresa Camargo MD Primary Care Provider [phone] Reason for Referral * Radiology Services (Routine) - Closed Specialty Diagnoses / Procedures Referred By Alejandrina vale Referred To Contact Ultrasound Diagnoses Multiple thyroid nodules Procedures US HEAD NECK TISSUES Yuliya Ibarra MD [address] [place] [address] [facility] Ultrasound [address] [place] [address] Referral ID Status Reason Start Date Expiration Date V isits Requested Visits Authorized [id number] Closed STL CTS 05/24/2019 06/23/2020 1 1 Reason for Visit * Auth/Cert Specialty Diagnoses / Procedures Referred By Alejandrina vale Referred To Contact Radiology [facility] Ultrasound [address] [place] [address] Referral ID Status Reason Start Date Expiration Date Visits Re quested Visits Authorized [id number] 1 1 Encounter Details Date Type Department Care Team (Latest Contact Info) Description 11/08/2019 9:30 AM CDT - 11/08/2019 11:59 PM CDT Hospital Encounter [facility] [address] [place] [address] Yuliya Ibarra MD [address] [facility] [address] [place] [address] Discharge Disposition: Home or Self [...] LANCETS) 28 gauge 100 Each by [facility]Non-Drug; Combo Route) route daily. Dx code 250.02 [...] 03/14/2020 HAYDEN PEN NEEDLE 32 gauge x 5/32 Needle USE TO INJECT INSULIN ONCE DAILY 100 Each 3 01/13/2018 05/05/2020 documented as of this encounter Plan of Treatment Upcoming Encounters Date Type Department Care Team (Late st Contact Info) Description 07/12/2024 2:30 PM BALLING MACHINE OPERATOR Office Visit [facility] Oncology and Hematology - [place] [address] [address] [place] [address] Ovidio Nolen MD [address] [facility] [address] [place] [address] documented as of this encounter Procedures Procedure Name Priority Date/Time Associated Diagnosis Comments US HEAD NECK TISSUES Routine 11/08/2019 10:10 AM CDT Multiple thyroid nodules documented in this encounter Results * US HEAD NECK [...] Location 4 Yuliya Ibarra MD US ORDERABLES documented in this encounter Visit Diagnoses Diagnosis Multiple thyroid nodules Nontoxic multinodular goiter documented in this encounter Care Teams Precision Millwright Relationship Specialty [place] [address] [phone] PCP - General Internal Medicine 08/14/18 documented as of this encounter
--- OUTSIDE RECORDS SUMMARY | 2024-05-26 13:14 | XMS_ITS | Encounter Summary ---
Author Organization [facility] Address [address] [place] [address] Care Team Providers Care Boomboat Operator Name Role Phone Theresa Camargo MD Primary Care Provider [phone] Reason for Visit * Reason Comments Medication Refill Encounter Details Date Type Department Care Team (Late st Contact Info) Description 08/22/2020 Refill [facility] Endocrinology [address] [place] [address] Yuliya Ibarra MD [address] [place] [address] Multiple thyroid nodules; Primary hypothyroidism; Subclinical hypothyroidism Social History Tobacco Use Types Packs/Day Years [...] COVID-19? No / Unsure 07/26/2020 8:25 AM REGIONAL REFRIGERATED CDL TRUCK DRIVER documented as of this encounter Miscellaneous Notes * Telephone Encounter - Yoselin Vázquez - 08/22/2020 8:42 AM CDT JOSE G: 07/26/2020 CA: 08/17/2020 NOV: 11/16/2020 documented in this encounter Plan of Treatment Upcoming Encounters Date Type Department Care Team (Late st Contact Info) Description 07/12/2024 2:30 PM REGIONAL REFRIGERATED CDL TRUCK DRIVER Office Visit [facility] Oncology and Hematology [facility] [address] [facility] 200 [place] [address] Ovidio Nolen MD [address] [facility] [address] [place] [address] documented as of this encounter Visit Diagnoses Diagnosis Multiple thyroid nodules Nontoxic multinodular goiter Primary hypothyroidism Unspecified hypothyroidism Subclinical hypothyroidism Other specified acquired hypothyroidism documented in this encounter Care Teams Boomboat Operator Relationship Specialty [place] [address] [facility] [address] [place] [address] PCP - General Internal Medicine 08/14/18 documented as of this encounter
--- OUTSIDE RECORDS SUMMARY | 2024-05-26 13:14 | XMS_ITS | Encounter Summary ---
Author Organization [facility] Address [address] [place] [address] Care Team Providers Care Law Office Manager Name Role Phone Theresa Camargo MD Primary Care Provider [phone] Reason for Visit * Reason Comments Medication Refill Encounter Details Date Type Department Care Team (Late st Contact Info) Description 01/23/2020 Refill [facility] Endocrinology [address] [place] [address] Yuliya Ibarra MD [address] [place] [address] Social History Tobacco Use Types [...] * Telephone Encounter - Bekah Wang - 01/26/2020 4:54 PM CDT galo 11/15/19 nov 05/01/20 documented in this encounter Plan of Treatment Upcoming Encounters Date Type Department Care Team (Late st Contact Info) Description 07/12/2024 2:30 PM HANDBAG FRAMER Office Visit [facility] Oncology and Hematology - [place] [address] [facility] [address] [place] [address] Ovidio Nolen MD [address] [facility] [address] [place] [address] documented as of this encounter Visit Diagnoses Not on filedocumented in this encounter Care Teams Law Office Manager Relationship Specialty [place] [address] [facility] [address] [place] [phone] PCP - General Internal Medicine 08/14/18 documented as of this encounter
--- OUTSIDE RECORDS SUMMARY | 2024-05-26 13:14 | XMS_ITS | Encounter Summary ---
Author Organization [facility] Address [address] [place] [address] Care Team Providers Care Carpet Floor Layer Apprentice Name Role Phone Theresa Camargo MD Primary Care Provider [phone] Reason for Visit * Reason Onset Date Comments Medication Refill 07/27/2019 Encounter Details Date Type Department Care Team (Late st Contact Info) Description 07/27/2019 Refill [facility] Endocrinology [address] [place] [address] Yuliya Ibarra MD [address] [place] [address] Social History Tobacco Use Types [...] * Telephone Encounter - Bekah Wang - 07/27/2019 2:09 PM CDT galo 05/24/19 nov 09/20/19 documented in this encounter Plan of Treatment Upcoming Encounters Date Type Department Care Team (Late st Contact Info) Description 07/12/2024 2:30 PM CREATIVE COORDINATOR Office Visit [facility] Oncology and Hematology - [place] [address] [facility] [address] [place] [address] Ovidio Nolen MD [address] [facility] [address] [place] [address] documented as of this encounter Visit Diagnoses Not on filedocumented in this encounter Care Teams Carpet Floor Layer Apprentice Relationship Specialty Start [place] [address] [facility] [address] [place] [address] PCP - General Internal Medicine 08/14/18 documented as of this encounter
--- OUTSIDE RECORDS SUMMARY | 2024-05-26 13:14 | XMS_ITS | Encounter Summary ---
Author Organization [facility] Address [address] Oliveira: Epic Prelude ADT [place] [address] Care Team Providers Care Distributed Generation Project Manager Name Role Phone Theresa Camargo MD Primary Care Provider [phone] Encounter Details Date Type Department Care Team (Latest Contact Info) Description 07/26/2020 Travel Social History Tobacco Use Types Packs/Day [...] COVID-19? No / Unsure 07/26/2020 8:25 AM DATA MINING ANALYST documented as of this encounter Plan of Treatment Upcoming Encounters Date Type Department Care Team (Late st Contact Info) Description 07/12/2024 2:30 PM DATA MINING ANALYST Office Visit [facility] Oncology and Hematology - [place] [address] [facility] [address] [place] [address] Ovidio Nolen MD [address] [facility] [address] [place] [address] documented as of this encounter Visit Diagnoses Not on filedocumented in this encounter Care Teams Distributed Generation Project Manager Relationship Specialty [place] [address] [address] PCP - General Internal Medicine 08/14/18 documented as of this encounter
--- OUTSIDE RECORDS SUMMARY | 2024-05-26 13:14 | XMS_ITS | Encounter Summary ---
Author Organization [facility] Address [address] [place] [address] Care Team Providers Care Tax Accounting Assistant Name Role Phone Theresa Camargo MD Primary Care Provider [phone] Reason for Visit * Reason Comments Medication Refill Encounter Details Date Type Department Care Team (Late st Contact Info) Description 06/01/2020 Refill [facility] Endocrinology [address] [place] [address] Yuliya Ibarra MD [address] [place] [address] Type 2 diabetes mellitus without [...] have Coronavirus / COVID-19? No / Unsure 05/29/2020 3:52 PM SALES FORCE DEVELOPER documented as of this encounter Miscellaneous Notes * Telephone Encounter - Latasha Khan - 06/01/2020 8:30 AM CST Orquidea:05/05/2020 Nov:08/17/2020 S FORCE DEVELOPER documented in this encounter Plan of Treatment Upcoming Encounters Date Type Department Care Team (Late st Contact Info) Description 07/12/2024 2:30 PM SALES FORCE DEVELOPER Office Visit [facility] Oncology and Hematology - [place] [address] [facility] [address] [place] [address] Ovidio Nolen MD [address] [facility] [address] [place] [address] documented as of this encounter Visit Diagnoses Diagnosis Type 2 diabetes mellitus without complication, without long-term current use of insulin documented in this encounter Care Teams Tax Accounting Assistant Relationship Specialty [place] [address] [facility] [address] [place] [address] PCP - General Internal Medicine 08/14/18 documented as of this encounter
--- OUTSIDE RECORDS SUMMARY | 2024-05-26 13:14 | XMS_ITS | Encounter Summary ---
Author Organization [facility] Address [address] Oliveira: Epic Prelude ADT [place] [address] Care Team Providers Care Popcorn Candy Maker Name Role Phone Theresa Camargo MD Primary Care Provider [phone] Encounter Details Date Type Department Care Team (Latest Contact Info) Description 05/29/2020 Travel Social History Tobacco Use Types Packs/Day [...] COVID-19? No / Unsure 05/29/2020 3:52 PM GAS PIT WORKER documented as of this encounter Plan of Treatment Upcoming Encounters Date Type Department Care Team (Late st Contact Info) Description 07/12/2024 2:30 PM GAS PIT WORKER Office Visit [facility] Oncology and Hematology - [place] [address] [facility] [address] [place] [address] Ovidio Nolen MD [address] [facility] [address] [place] [address] documented as of this encounter Visit Diagnoses Not on filedocumented in this encounter Care Teams Popcorn Candy Maker Relationship Specialty [place] [address] [address] PCP - General Internal Medicine 08/14/18 documented as of this encounter
--- OUTSIDE RECORDS SUMMARY | 2024-05-26 13:14 | XMS_ITS | Encounter Summary ---
Author Organization [facility] Address [address] [place] [address] Care Team Providers Care Chalker Soles Name Role Phone Theresa Camargo MD Primary Care Provider [phone] Reason for Visit * Reason Comments Medication Refill Encounter Details Date Type Department Care Team (Late st Contact Info) Description 04/22/2020 Refill [facility] Endocrinology [address] [place] [address] Yuliya Ibarra MD [address] [place] [address] Social History Tobacco Use Types [...] * Telephone Encounter - Yoselin Vázquez - 04/24/2020 8:29 AM CST JOSE G: 11/15/2019 NOV: 05/01/2020 AGE SEALER documented in this encounter Plan of Treatment Upcoming Encounters Date Type Department Care Team (Late st Contact Info) Description 07/12/2024 2:30 PM PACKAGE SEALER Office Visit [facility] Oncology and Hematology - [place] [address] [facility] [address] [place] [address] Ovidio Nolen MD [address] [facility] [address] [place] [address] documented as of this encounter Visit Diagnoses Not on filedocumented in this encounter Care Teams Chalker Soles Relationship Specialty [place] [address] [facility] [address] [place] [address] PCP - General Internal Medicine 08/14/18 documented as of this encounter
--- OUTSIDE RECORDS SUMMARY | 2024-05-26 13:14 | XMS_ITS | Encounter Summary ---
Author Organization [facility] Address [address] Oliveira: Epic Prelude ADT [place] [address] Care Team Providers Care Photographic Plate Maker Name Role Phone Theresa Camargo MD Primary Care Provider [phone] Encounter Details Date Type Department Care Team (Latest Contact Info) Description 04/25/2021 Travel Social History Tobacco Use Types Packs/Day [...] COVID-19? Unable to assess 04/25/2021 1:27 PM REAL ESTATE PORTFOLIO MANAGER documented as of this encounter Plan of Treatment Upcoming Encounters Date Type Department Care Team (Late st Contact Info) Description 07/12/2024 2:30 PM REAL ESTATE PORTFOLIO MANAGER Office Visit [facility] Oncology and Hematology - [place] [address] [facility] 200 [place] [address] Ovidio Nolen MD [address] [facility] [address] [place] [address] documented as of this encounter Visit Diagnoses Not on filedocumented in this encounter Care Teams Photographic Plate Maker Relationship Specialty Start [place] [address] [address] PCP - General Internal Medicine 08/14/18 documented as of this encounter
--- OUTSIDE RECORDS SUMMARY | 2024-05-26 13:14 | XMS_ITS | Encounter Summary ---
Author Organization [facility] Address [address] [place] [address] Care Team Providers Care Twister Tender Name Role Phone Theresa Camargo MD Primary Care Provider [phone] Reason for Visit * Reason Onset Date Comments Results 06/07/2020 Encounter Details Date Type Department Care Team (Late st Contact Info) Description 06/07/2020 Telephone [facility] Endocrinology [address] [place] [address] Yuliya Ibarra MD [address] [place] [address] Results Social History Tobacco Use [...] COVID-19? No / Unsure 06/06/2020 10:15 AM LAUNDRY ATTENDANT documented as of this encounter Miscellaneous Notes * Telephone Encounter - Julian Khansami [place] - 06/07/2020 10:27 AM CST Spoke to pt. Gave results. Pt understands. DRY ATTENDANT * Telephone Encounter - Latasha Khan - 06/07/2020 10:27 AM CST ----- Message from Yuliya Ibarra MD sent at 06/06/2020 3:01 PM LAUNDRY ATTENDANT ----- The bone density has declined, but still on osteopenia range, not osteoporosis. Repeat labs when she can ( has orders in the system) DRY ATTENDANT documented in this encounter Plan of Treatment Upcoming Encounters Date Type Department Care Team (Late st Contact Info) Description 07/12/2024 2:30 PM LAUNDRY ATTENDANT Office Visit [facility] Oncology and Hematology [facility] [address] [facility] [address] [place] [address] Ovidio Nolen MD [address] [facility] [address] [place] [address] documented as of this encounter Visit Diagnoses Not on filedocumented in this encounter Care Teams Twister Tender Relationship Specialty Start [place] [address] [facility] [address] [place] [address] PCP - General Internal Medicine 08/14/18 documented as of this encounter
--- OUTSIDE RECORDS SUMMARY | 2024-05-26 13:14 | XMS_ITS | Encounter Summary ---
Author Organization [facility] Address [address] [place] [address] Care Team Providers Care Tax Map Technician Name Role Phone Theresa Camargo MD Primary Care Provider [phone] Reason for Visit * Reason Comments Medication Refill Encounter Details Date Type Department Care Team (Late st Contact Info) Description 10/12/2019 Refill [facility] Endocrinology [address] [place] [address] Yuliya Ibarra MD [address] [place] [address] Multiple thyroid nodules Social History [...] Notes * Telephone Encounter - Yoselin Vázquez G - 10/15/2019 1:58 PM CDT JOSE G: 05/24/2019 NOV: 11/15/2019 documented in this encounter Plan of Treatment Upcoming Encounters Date Type Department Care Team (Late st Contact Info) Description 07/12/2024 2:30 PM JANITORIAL SERVICES SUPERVISOR Office Visit [facility] Oncology and Hematology [facility] [address] [facility] 200 [place] [address] Ovidio Nolen MD [address] [facility] [address] [place] [address] documented as of this encounter Visit Diagnoses Diagnosis Multiple thyroid nodules Nontoxic multinodular goiter documented in this encounter Care Teams Tax Map Technician Relationship Specialty Start [place] [address] [facility] [address] [place] [address] PCP - General Internal Medicine 08/14/18 documented as of this encounter
--- OUTSIDE RECORDS SUMMARY | 2024-05-26 13:14 | XMS_ITS | Encounter Summary ---
Author Organization [facility] Address [address] [place] [address] Care Team Providers Care Joinery Patternmaker Name Role Phone Theresa Camargo MD Primary Care Provider [phone] Reason for Visit * Auth/Cert Specialty Diagnoses / Procedures Referred By Alejandrina vale Referred To Contact Laboratory [facility] [place] [facility] [address], [place] [address] Referral ID Status Reason Start Date Expiration Date Visits Re quested Visits Authorized [id number] 1 1 Encounter Details Date Type Department Care Team (Latest Contact Info) Description 05/24/2019 12:40 PM CADD OPERATOR - 05/24/2019 11:59 PM [facility] Hospital Encounter [facility] Laboratory Services [facility] [address], [place] [address] Yuliya Ibarra MD [address] [place] [address] Discharge Disposition: Home or Self [...] (FREESTYLE LANCETS) 28 gauge 100 Each [facility]Non-Drug; Combo Route) route daily. Dx code 250.02 [...] Indications: instructed to stop prior to surgery LEVOTHYROXINE 25 mcg tabletIndications:Mul tiple thyroid nodules TAKE 1 TABLET DAILY IN THE MORNING BEFORE A MEAL 90 Tablet 1 05/03/2019 10/15/2019 glimepiride (AMARYL) 1 mg tabletIndications:Typ e 2 diabetes mellitus without complication, without long-term current use of insulin Take 1 Tablet (1 mg) by mouth 3 times daily. 90 Tablet 2 04/14/2019 03/14/2020 SITagliptin (JANUVIA) 100 mg Tablet TAKE 1 TABLET DAILY WITH BREAKFAST 90 Tablet 1 01/26/2019 07/27/2019 blood sugar diagnostic (FREESTYLE LITE STRIPS) Strip TEST BLOOD SUGARS TWICE A DAY DX E11.9.. 200 Strip 1 10/07/2018 06/22/2019 empagliflozin (JARDIANCE) 10 mg tablet Take 1 Tablet (10 mg) by mouth daily needle valve operator. 90 Tablet 1 08/25/2018 07/19/2019 HAYDEN PEN NEEDLE 32 gauge x 5/32 Needle USE TO INJECT INSULIN ONCE DAILY 100 Each 3 01/13/2018 05/05/2020 documented as of this encounter Plan of Treatment Upcoming Encounters Date Type Department Care Team (Late st Contact Info) Description 07/12/2024 2:30 PM CADD OPERATOR Office Visit [facility] Oncology and Hematology - [place] [address] [facility] 200 [place] [address] Ovidio Nolen MD [address] [facility] [address] [place] [address] documented as of this encounter Procedures Procedure Name Priority Date/Time Associated Diagnosis Comments HEMOGLOBIN A1C Routine 05/24/2019 12:45 PM CADD OPERATOR Type 2 diabetes mellitus without complication, without long-term current use of insulin documented in this encounter Results * (ABNORMAL) HEMOGLOBIN A1C (05/24/2019 12:45 PM CADD OPERATOR) HEMOGLOBIN A1C 7.1(H) <5.7 % 05/25/2019 5:52 AM CADD OPERATOR [facility] EST. AVG GLUCOSE, A1C 157 mg/dL 05/25/2019 5:52 AM [facility] Blood Venipuncture / Unknown 05/24/2019 12:45 PM CADD OPERATOR 05/24/2019 12:58 PM CADD OPERATOR Narrative [facility] - 05/25/2019 5:52 AM CADD OPERATOR HGB A1C INTERPRETATION NORMAL: ? <5.7% PRE-DIABETES: 5.7 - 6.4% DIABETES: ? 6.5% OR GREATER Yuliya Ibarra MD CHEMISTRY ORDERABLES [facility] MIC# [id number] [address] [place] [address] documented in this encounter Visit Diagnoses Diagnosis Type 2 diabetes mellitus without complication, without long-term current use of insulin documented in this encounter Care Teams Joinery Patternmaker Relationship Specialty Start [place] [address] [address] PCP - General Internal Medicine 08/14/18 documented as of this encounter
--- OUTSIDE RECORDS SUMMARY | 2024-05-26 13:14 | XMS_ITS | Encounter Summary ---
Author Organization [facility] Address [address] [facility] [address] Oliveira: Epic Prelude ADT [place] [address] Care Team Providers Care Assistant Golf Course Superintendent Name Role Phone Theresa Camargo MD Primary Care Provider [phone] Encounter Details Date Type Department Care Team (Latest Contact Info) Description 05/05/2020 Travel Social History Tobacco Use Types Packs/Day [...] COVID-19? No / Unsure 05/05/2020 10:48 AM CONSULTANT IN ERGONOMICS AND SAFETY documented as of this encounter Plan of Treatment Upcoming Encounters Date Type Department Care Team (Late st Contact Info) Description 07/12/2024 2:30 PM CONSULTANT IN ERGONOMICS AND SAFETY Office Visit [facility] Oncology and Hematology - [place] [address] [facility] 200 [place] [address] Ovidio Nolen MD [address] [facility] [address] [place] [address] documented as of this encounter Visit Diagnoses Not on filedocumented in this encounter Care Teams Assistant Golf Course Superintendent Relationship Specialty [place] [address] [address] PCP - General Internal Medicine 08/14/18 documented as of this encounter
--- OUTSIDE RECORDS SUMMARY | 2024-05-26 13:14 | XMS_ITS | Encounter Summary ---
Author Organization [facility] Address [address] [place] [address] Care Team Providers Care Dowel Pin Worker Name Role Phone Theresa Camargo MD Primary Care Provider [phone] Reason for Visit * Reason Onset Date Comments Medication Refill 07/20/2019 Encounter Details Date Type Department Care Team (Late st Contact Info) Description 07/20/2019 Refill [facility] Endocrinology [address] [place] [address] Yuliya Ibarra MD [address] [place] [address] Social History Tobacco Use Types [...] * Telephone Encounter - Celine Rudolph - 07/20/2019 2:26 PM CST JOSE G: 05/24/2019 NOV: 09/20/2019 Patient also request a 90 day supply be sent to her mail order pharmacy. E MACHINE OPERATOR documented in this encounter Plan of Treatment Upcoming Encounters Date Type Department Care Team (Late st Contact Info) Description 07/12/2024 2:30 PM CREPE MACHINE OPERATOR Office Visit [facility] Oncology and Hematology - [place] [address] [facility] 200 [place] [address] Ovidio Nolen MD [address] [facility] [address] [place] [address] documented as of this encounter Visit Diagnoses Not on filedocumented in this encounter Care Teams Dowel Pin Worker Relationship Specialty Start [place] [address] [facility] [address] [place] [address] PCP - General Internal Medicine 08/14/18 documented as of this encounter
--- OUTSIDE RECORDS SUMMARY | 2024-05-26 13:14 | XMS_ITS | Encounter Summary ---
Author Organization [facility] Address [address] [place] [address] Care Team Providers Care Induction Furnace Operator Name Role Phone Theresa Camargo MD Primary Care Provider [phone] Reason for Visit * Reason Onset Date Comments Results 05/11/2020 Encounter Details Date Type Department Care Team (Late st Contact Info) Description 05/11/[address] [facility] Endocrinology [address] [place] [address] Yuliya Ibarra MD [address] [place] [address] Results Social History Tobacco Use [...] COVID-19? No / Unsure 07/26/2020 8:25 AM CONTACT LENS FLASHING PUNCHER documented as of this encounter Miscellaneous Notes * Telephone Encounter - Nivia Shea - 05/11/2020 11:41 AM CST Left message to call. ACT LENS FLASHING PUNCHER * Telephone Encounter - Nivia Shea - 05/11/2020 11:39 AM CST ----- Message from Yuliya Ibarra MD sent at 05/08/2020 10:29 AM CONTACT LENS FLASHING PUNCHER ----- Higher calcium. Low potassium -is she taking potassium supplements? Needs to increase potassium in her diet. Needs to stay well hydrated. Repeat intact PTH, BMP in 2-3 weeks. Repeat DEXA scan ( lumbar spine, femoral neck bilaterally, distal radius) Dx: primary hyperparathyroidism. Normal thyroid level. Hga1C is still 7.1%, which is good. ACT LENS FLASHING PUNCHER documented in this encounter Plan of Treatment Upcoming Encounters Date Type Department Care Team (Late st Contact Info) Description 07/12/2024 2:30 PM CONTACT LENS FLASHING PUNCHER Office [facility] Oncology and Hematology - [place] [address] [facility] 200 [place] [address] Ovidio Nolen MD [address] [facility] [address] [place] [address] documented as of this encounter Visit Diagnoses Not on filedocumented in this encounter Care Teams Induction Furnace Operator Relationship Specialty Start [place] [address] [facility] [address] [place] [address] PCP - General Internal Medicine 08/14/18 documented as of this encounter
--- OUTSIDE RECORDS SUMMARY | 2024-05-26 13:14 | XMS_ITS | Encounter Summary ---
Author Organization [facility] Address [address] [place] [address] Care Team Providers Care Asphalt Spreader Name Role Phone Theresa Camargo MD Primary Care Provider [phone] Reason for Visit * Reason Onset Date Comments appt letter 04/09/2021 Encounter Details Date Type Department Care Team (Late st Contact Info) Description 04/09/2021 Telephone [facility] Endocrinology [address] [place] [address] Yuliya Ibarra MD [address] [place] [address] appt letter Social History Tobacco Use Types Packs/Day Years [...] * Telephone Encounter - Bekah Wang - 04/09/2021 10:35 AM CST Pt no/ showed appr in office on 04/06/21 appt warning letter sent per md T OF WAY AGENT documented in this encounter Plan of Treatment Upcoming Encounters Date Type Department Care Team (Late st Contact Info) Description 07/12/2024 2:[address]ENT Office Visit [facility] Oncology and Hematology - [place] [address] [facility] 200 [place] [address] Ovidio Nolen MD [address] [facility] 100 [place] [address] documented as of this encounter Visit Diagnoses Not on filedocumented in this encounter Care Teams Asphalt Spreader Relationship Specialty Start [place] [address] [facility] [address] [place] [address] PCP - General Internal Medicine 08/14/18 documented as of this encounter
--- OUTSIDE RECORDS SUMMARY | 2024-05-26 13:14 | XMS_ITS | Encounter Summary ---
Author Organization [facility] Address [address] [place] [address] Care Team Providers Care Bundle Wrapper Name Role Phone Theresa Camargo MD Primary Care Provider [phone] Reason for Visit * Reason Comments Diabetes Encounter Details Date Type Department Care Team (Late st Contact Info) Description 04/25/2021 1:30 PM TRANSPORTATION TECHNICIAN Video Visit [facility] [address] [place] [address] Yuliya Ibarra MD [address] [place] [address] Type 2 diabetes mellitus without complication, without long-term current use of insulin (Primary Dx); Primary hypothyroidism; Multiple thyroid nodules; Hypercalcemia Social History Tobacco Use Types Packs/Day [...] COVID-19? Unable to assess 04/25/2021 1:27 PM TRANSPORTATION TECHNICIAN documented as of this encounter Last Filed Vital Signs Vital Sign Reading Time Taken Comments Blood Pressure - - Pulse - - Temperature - - Respiratory Rate - - Oxygen Saturation - - Inhaled Oxygen Concentration - - Weight - - Height 165.1 cm (5' 5 ) 04/25/2021 1:36 PM TRANSPORTATION TECHNICIAN Body Mass Index - - documented in this encounter Progress Notes * Yuliya Ibarra MD - 04/25/2021 1:39 PM CST This encounter was completed via two-way synchronous audio and video communication. Patient expressed understanding that using technology outside of [facility] has higher potential tointroduce privacy risks: Yes Patient's identity confirmed yes Patient gave verbal consent to have these services billed to their insurance and expressed understanding that co-insurance and deductible may apply: yes [facility] Yuliya Ibarra M.D. Reason for visit: DM follow-up. Subjective: . Here w/ her daughter. Perla Leon is a 80 y.o. female with multiple medical problems, who presents to clinic for DM, thyroid nodules post left nodule FNA w/ benign results, subclinical hypothyroidism, hypercalcemia, atrial fibrillation, dx of breast cancer, post surgery and radiation, spastic paraplegia, CVA, memory loss, presents to clinic for follow-up as a video visit. Patient was diagnosed with multiple thyroid nodules [...] Levothyroxine 25 mcg daily.Current Levothyroxine dose is 75 mcg daily. Her ultrasound, done on 10/2017, revealed interval development of suspicious left thyroid nodule, post FNA w/ benign results. Follow-up ultrasound, done on , revealed slightly larger nodule. Last ultrasound, done on 10/2019, revealed stable small thyroid nodule. Denies changes in her neck size. DM regimen: currently on Lantus 10 units in am, Glimepiride 2 mg in am, 2 mg with lunch and 1 mg with dinner, Januvia 100 mg daily, Invokana 100 mg daily Reports fair sugars. Last Hga1C was 5.4%, but she had to have blood transfusion w/n 3 months of that. She has tried stopping Glimepiride, but her sugars increased, had to resume. She is staying well hydrated. Glucometer: has one. Last eye exam: over 3 months ago - has glaucoma. Previous meds: Levemir 6 units qhs, Could not tolerate Metformin secondary to diarrhea. Jardiance 10 mg daily. Goes to a manager photography. Patient was found to have hypercalcemia, parathyroid [...] Outpatient Medications Medication Sig Dispense Refill ??? blood sugar diagnostic (FreeStyle Lite Strips) Strip TEST BLOOD SUGARS THREE TIMES A DAY 300 Strip 0 ??? glimepiride (AMARYL) 1 mg tablet TAKE 2 TABLETS BY MOUTH WITH BREAKFAST AND LUNCH, AND 1 TABLETWITH DINNER 540 Tablet 0 ??? Invokana 100 mg TAKE 1 TABLET BY MOUTH EVERY DAY BEFORE BREAKFAST 90 Tablet 0 ??? SITagliptin (Januvia) 100 mg Tablet TAKE 1 TABLET DAILY WITH BREAKFAST 90 Tablet 1 ??? levothyroxine 75 mcg tablet Take 75 mcg by mouth daily in the morning. ??? insulin glargine (Lantus Solostar U-100 Insulin) 100 unit/mL pen syringe 10 units SQ in am 15 mL 2 ??? denosumab (PROLIA) 60 mg/mL Syringe Inject 60 mg by subcutaneous injection Every twentysix weeks. ??? flecainide (TAMBOCOR) 50 mg Tablet Take 50 mg by mouth. ??? Insulin Niantic, Disposable, (Maddi Pen Needle) 32 gauge x Needle USE TO INJECT INSULIN ONCE DAILY 100 Each 3 ??? albuterol HFA 90 mcg inhaler Take [...] level: Not on file Occupational History Employer: [employer] Tobacco Use ??? Smoking status: Never Smoker Substance and Sexual Activity ??? Alcohol use: No ??? Drug use: No ??? Sexual activity: Not on file Comment: hyst Other Topics Concern ??? Not on file Social History Narrative ??? Not on file Family medical history: Family History Problem Relation Name Age of Onset ??? Breast Cancer Mother ??? Hypertension Brother ##Brother1 ??? High Cholesterol Brother ##Brother1 Medical History: Past Medical History: Diagnosis Date ??? Arthritis hands and back ??? Asthma ??? Cancer skin ??? CVD (cerebrovascular disease) 8119-5627 TIA x2 ??? Diabetes no medication at [...] vascular disease) feet mainly ??? Seizure disorder 2001 after stroke-none since ??? Shingles [id number] x3 ??? Spondylolisthesis l4-l5 Patient Active Problem [...] 2002 dr. Valencia ??? H[place] REPAIR 2009[place] ??? HX HYSTERECTOMY 1985 ??? HX KNEE ARTHROSCOPY 0417-8091 right knee ??? HX SURGICAL OTHER 1975 ulcer removed from vocal cord ??? HX SURGICAL OTHER 1985 surgery for broken nose ??? HX SURGICAL OTHER 09/10/2010 ANTERIOR POSTERIOR REPAIR performed by FRANKLYN PACK at [facility] OR [facility] ??? LA ANTERIOR COLPORRAPHY RPR CYSTOCELE W/CYSTO 09/10/2010 CYSTOCELE REPAIR performed by FRANKLYN PACK at [facility] ??? LA POST COLPORRHAPHY,RECTUM/VAGINA 09/10/2010 RECTOCELE REPAIR performed by FRANKLYN PACK at [facility] OR [facility] ??? LA REPAIR ENTEROCELE,VAG APPRCH 09/10/2010 ENTEROCELE REPAIR VAGINAL APPROACH performed by FRANKLYN PACK at [facility] OR [facility] ??? LA REPAIR OF PERINEUM,NON OBSTETRICAL 09/10/2010 PERINEOPLASTY performed by FRANKLYN PACK at [facility] OR [facility] ??? LA REPR VAGINAL PROLAPSE,SACROSP LIG 09/10/2010 SACROSPINOUS LIGAMENT FIXATION performed by FRANKLYN PACK at [facility] OR [facility] Physical Findings: Wt Readings from Last 3 Encounters: 05/05/20 79.8 kg (176 lb) 11/15/19 82.6 kg (182 lb) 05/24/19 79.4 kg (175 lb) Ht 5' 5 (1.651 m) BMI 29.29 kg/m?? GEN: appears well nourished, not in acute distress. RESP: Breathing unlabored MSK: appears to have full range of motion NEURO: A&Ox3 EYES: Extraocular movements appear to be intact, no issues with visual acuity Psych: normal mood and affect Lab: 08/26/17 Hga1C - 7.0% Lab Results [...] Creatinine 0.81 Calcium 10.3 TSH 4.45 Reviewed [facility] lab result done on 04/19/14 CMP [...] Status: Final result ?Visible to patient: Yes (MyCisabela) Component FINAL DIAGNOSIS Thyroid, left, FNA, cytology: [...] discussed the risk factors associated with diabetes. Continue w/ current insulin, medications for now. Reviewed blood sugars Repeat HgA1C Last Hga1C was likely falsely low secondary to blood transfusion. 2. H/o Hypercalcemia - primary hyperparathyroidism. H/o high PTH Mild osteopenia per DEXA scan. Conservative management. She has been on Prolia as per her oncologist. Last calcium was 10.3, done on 03/08. 3. Thyroid nodules, primary hypothyroidism. Post left suspicious thyroid nodule FNA w/ benign results. Stable recent ultrasound. Repeat TSH. On Levothyroxine 75 mcg daily. Patient is to call if experiences increase in her neck size/dysphagia/dyspnea/voice changes/tremors/palpitations or other problems arise. Follow-up in 6 months. On the day of the visit, I spent 30 minutes providing care to this patient including Preparing to see the patient, Obtaining and/or reviewing separately obtained history, Performing a medically appropriate examination and/or evaluation, Counseling and educating the patient/family/caregiver, Ordering medications, tests or procedures and Documenting clinical information in the medical record. Yuliya Ibarra MD SPORTATION TECHNICIAN documented in this encounter Plan of Treatment Upcoming Encounters Date Type Department Care Team (Late st Contact Info) Description 07/12/2024 2:30 PM TRANSPORTATION TECHNICIAN Office Visit [facility] - [place] [address] [place] [address] vOidio Nolen MD [address] [facility] [address] [place] [address] documented as of this encounter Visit Diagnoses Diagnosis Type 2 diabetes mellitus without complication, without long-term current use of insulin- Primary Primary hypothyroidism Unspecified hypothyroidism Multiple thyroid nodules Nontoxic multinodular goiter Hypercalcemia documented in this encounter Care Teams Bundle Wrapper Relationship Specialty [place] [address] [facility] [address] [place] [address] PCP - General Internal Medicine 08/14/18 documented as of this encounter
--- OUTSIDE RECORDS SUMMARY | 2024-05-26 13:14 | XMS_ITS | Encounter Summary ---
Author Organization [facility] Address [address] [place] [address] Care Team Providers Care Research Home Economist Name Role Phone Theresa Camargo MD Primary Care Provider [phone] Reason for Visit * Reason Onset Date Comments Needs Form Or Letter Filled Out 07/21/2019 Jardiance Encounter Details Date Type Department Care Team (Late st Contact Info) Description 07/21/2019 Telephone [facility] [address] [place] [address] Yuliya Ibarra MD [address] [place] [address] Needs Form Or Letter Filled Out (Jardiance ) Social History Tobacco Use Types Packs/Day Years [...] * Telephone Encounter - Bekah Wang - 07/21/2019 2:56 PM CST Received p/a denial for , [facility] scripts for pt jardiance - scanned Spoke with pt , per md will make change to invokana Rx pended for md signature Pt wants 30 [facility] and 90 days to [facility] CAL DOCTOR MD * Telephone Encounter - Yuliya Ibarra MD - 07/21/2019 2:14 PM CST We can try Invokana 100 mg daily CAL DOCTOR MD * Telephone Encounter - Celine Rudolph - 07/21/2019 1:59 PM CST Received call from patient, advising that her insurance company is no longer covering empagliflozin(Jardiance) 10 mg tablet. Can an alternative be given? Please advise. CAL DOCTOR MD documented in this encounter Plan of Treatment Upcoming Encounters Date Type Department Care Team (Late st Contact Info) Description 07/12/2024 2:30 PM MEDICAL DOCTOR MD Office Visit [facility] Oncology and Hematology - [place] [address] [facility] [address] [place] [phone] Ovidio Nolen MD [address] [facility] [address] [place] [address] documented as of this encounter Visit Diagnoses Not on filedocumented in this encounter Care Teams Research Home Economist Relationship Specialty [place] [address] [facility] [address] [place] [address] PCP - General Internal Medicine 08/14/18 documented as of this encounter
--- OUTSIDE RECORDS SUMMARY | 2024-05-26 13:14 | XMS_ITS | Encounter Summary ---
Author Organization [facility] Address [address] [place] [address] Care Team Providers Care Urgent Care Physician Assistant Name Role Phone Theresa Camagro MD Primary Care Provider Reason for Visit * Reason Onset Date Comments Question 09/02/2019 Ultrasound Encounter Details Date Type Department Care Team (Late st Contact Info) Description 09/02/2019 Telephone [facility] Endocrinology [address] [place] [address] Yuliya Ibarra MD [address] [place] [address] Question (Ultrasound) Social History Tobacco Use Types Packs/Day Years [...] PM CDT documented as of this encounter Miscellaneous Notes * Telephone Encounter - Ange Cerda - 09/02/2019 11:47 AM CDT Pt informed and rescheduled * Telephone Encounter - Yuliya Ibarra MD - 09/02/2019 11:37 AM CDT That's fine * Telephone Encounter - Ange Cerda - 09/02/2019 11:20 AM CDT Patient's appointment is 09/20/2019 but her ultrasound is scheduled for the end of September. Should she postpone her appointment until after ultrasound is done? documented in this encounter Plan of Treatment Upcoming Encounters Date Type Department Care Team (Late st Contact Info) Description 07/12/2024 2:30 PM COB SAWYER Office Visit [facility] Oncology and Hematology - [place] [address] [facility] [address] [place] [address] Ovidio Nolen MD [address] [facility] [address] [place] [address] documented as of this encounter Visit Diagnoses Not on filedocumented in this encounter Care Teams Urgent Care Physician Assistant Relationship Specialty [place] [address] [facility] [address] [place] [address] PCP - General Internal Medicine 08/14/18 documented as of this encounter
--- OUTSIDE RECORDS SUMMARY | 2024-05-26 13:14 | XMS_ITS | Encounter Summary ---
Author Organization [facility] Address [address] [place] [address] Care Team Providers Care Jewel Diameter Gauger Name Role Phone Theresa Camargo MD Primary Care Provider [phone] Reason for Visit * Reason Comments Medication Refill Encounter Details Date Type Department Care Team (Late st Contact Info) Description 01/15/2020 Refill [facility] Endocrinology [address] [place] [address] Yuliya Ibarra MD [address] [place] [address] Social History Tobacco Use Types [...] * Telephone Encounter - Yoselin Vázquez - 01/17/2020 12:15 PM CDT JOSE G: 11/15/2019 NOV: 05/01/2020 documented in this encounter Plan of Treatment Upcoming Encounters Date Type Department Care Team (Late st Contact Info) Description 07/12/2024 2:30 PM CRUSHED STONE GRADER Office Visit [facility] Oncology and Hematology - [place] [address] [facility] [address] [place] [address] Ovidio Nolen MD [address] [facility] [address] [place] [address] documented as of this encounter Visit Diagnoses Not on filedocumented in this encounter Care Teams Jewel Diameter Gauger Relationship Specialty Start [place] [address] [facility] [address] [place] [phone] PCP - General Internal Medicine 08/14/18 documented as of this encounter
--- OUTSIDE RECORDS SUMMARY | 2024-05-26 13:14 | XMS_ITS | Encounter Summary ---
Author Organization [facility] Address [address] [place] [address] Care Team Providers Care Director Of Nurses Registry Name Role Phone Theresa Camargo MD Primary Care Provider [phone] Reason for Visit * Reason Comments Medication Refill Encounter Details Date Type Department Care Team (Late st Contact Info) Description 05/20/2020 Refill [facility] Endocrinology [address] [place] [address] Yuliya Ibarra MD [address] [place] [address] Multiple thyroid nodules; Primary hypothyroidism; [...] COVID-19? No / Unsure 05/05/2020 10:48 AM WATCH ENGINE OPERATOR documented as of this encounter Miscellaneous Notes * Telephone Encounter - Yoselin Vázquez - 05/22/2020 12:48 PM CST JOSE G: 05/05/2020 NOV: 08/17/2020 H ENGINE OPERATOR documented in this encounter Plan of Treatment Upcoming Encounters Date Type Department Care Team (Late st Contact Info) Description 07/12/2024 2:30 PM WATCH ENGINE OPERATOR Office Visit [facility] Oncology and Hematology [facility] [address] [facility] [address] [place] [address] Ovidio Nolen MD [address] [facility] [address] [place] [address] documented as of this encounter Visit Diagnoses Diagnosis Multiple thyroid nodules Nontoxic multinodular goiter Primary hypothyroidism Unspecified hypothyroidism Subclinical hypothyroidism Other specified acquired hypothyroidism documented in this encounter Care Teams Director Of Nurses Registry Relationship Specialty [place] [address] [facility] [address] [place] [address] PCP - General Internal Medicine 08/14/18 documented as of this encounter
--- OUTSIDE RECORDS SUMMARY | 2024-05-26 13:14 | XMS_ITS | Encounter Summary ---
Author Organization [facility] Address [address] Oliveira: Epic Prelude ADT [place] [address] Care Team Providers Care Office Machines Wirer Name Role Phone Theresa Camargo MD Primary Care Provider Encounter Details Date Type Department Care Team (Latest Contact Info) Description 06/06/2020 Travel Social History Tobacco Use Types Packs/Day [...] COVID-19? No / Unsure 06/06/2020 10:15 AM RETAIL COVERAGE MERCHANDISER LEAD documented as of this encounter Plan of Treatment Upcoming Encounters Date Type Department Care Team (Late st Contact Info) Description 07/12/2024 2:30 PM RETAIL COVERAGE MERCHANDISER LEAD Office Visit [facility] Oncology and Hematology - [place] [address] [place] [address] Ovidio Nolen MD [address] [facility] [address] [place] [address] documented as of this encounter Visit Diagnoses Not on filedocumented in this encounter Care Teams Office Machines Wirer Relationship Specialty [place] [address] [address] PCP - General Internal Medicine 08/14/18 documented as of this encounter
--- OUTSIDE RECORDS SUMMARY | 2024-05-26 13:14 | XMS_ITS | Encounter Summary ---
Author Organization [facility] Address [address] [place] [address] Care Team Providers Care Circular Sawyer Stone Name Role Phone Theresa Camargo MD Primary Care Provider [phone] Reason for Visit * Reason Comments Medication Refill Encounter Details Date Type Department Care Team (Late st Contact Info) Description 02/14/2020 Refill [facility] Endocrinology [address] [place] [address] Yuliya Ibarra MD [address] [place] [address] Multiple thyroid nodules; Primary hypothyroidism; [...] * Telephone Encounter - Celine Rudolph - 02/15/2020 12:14 PM CDT JOSE G: 11/15/2019 NOV: 05/01/2020 documented in this encounter Plan of Treatment Upcoming Encounters Date Type Department Care Team (Late st Contact Info) Description 07/12/2024 2:30 PM PIPE ORGAN INSTALLER Office Visit [facility] Oncology and Hematology - [place] [address] [facility] [address] [place] [address] Ovidio Nolen MD [address] [facility] [address] [place] [address] documented as of this encounter Visit Diagnoses Diagnosis Multiple thyroid nodules Nontoxic multinodular goiter Primary hypothyroidism Unspecified hypothyroidism Subclinical hypothyroidism Other specified acquired hypothyroidism documented in this encounter Care Teams Circular Sawyer Stone Relationship Specialty Start [place] [address] [facility] [address] [place] [phone] PCP - General Internal Medicine 08/14/18 documented as of this encounter
--- OUTSIDE RECORDS SUMMARY | 2024-05-26 13:14 | XMS_ITS | Encounter Summary ---
Author Organization [facility] Address [address] [place] [address] Care Team Providers Care Communications Field Technician Name Role Phone Theresa Camargo MD Primary Care Provider [phone] Reason for Visit * Reason Comments Medication Refill Encounter Details Date Type Department Care Team (Late Contact Info) Description 01/17/2021 Refill [facility] Endocrinology [address] [place] [address] Yuliya Ibarra MD [address] [place] [address] Social History Tobacco Use Types [...] * Telephone Encounter - Latasha Khan - 01/17/2021 9:22 AM CDT Orquidea:07/26/20 Ca:11/16/20,08/17/20 Nov:04/06/21 documented in this encounter Plan of Treatment Upcoming Encounters Date Type Department Care Team (Late st Contact Info) Description 07/12/2024 2:30 PM GAS WELL DRILLING MANAGER Office Visit [facility] Oncology and Hematology - [place] [address] [facility] [address] [place] [address] Ovidio Nolen MD [address] [facility] [address] [place] [address] documented as of this encounter Visit Diagnoses Not on filedocumented in this encounter Care Teams Communications Field Technician Relationship Specialty Start [place] [address] [facility] [address] [place] [address] PCP - General Internal Medicine 08/14/18 documented as of this encounter
--- OUTSIDE RECORDS SUMMARY | 2024-05-26 13:14 | XMS_ITS | Encounter Summary ---
Author Organization [facility] Address [address] [place] [address] Care Team Providers Care Hand Shaker Name Role Phone Theresa Camargo MD Primary Care Provider [phone] Reason for Visit * Reason Onset Date Comments High Blood Sugar 04/14/2019 Encounter Details Date Type Department Care Team (Late st Contact Info) Description 04/14/2019 Telephone [facility] Endocrinology [address] [place] [address] Yuliya Ibarra MD [address] [place] [address] High Blood Sugar Social History Tobacco Use Types Packs/Day Years [...] * Telephone Encounter - Celine Rudolph - 04/14/2019 4:13 PM CST Advised MD message to patient's daughter, who voiced understanding. Orders placed pending MD signature. S SERVICE REP * Telephone Encounter - Yuliya Ibarra MD - 04/14/2019 12:39 PM CST As per previous message - we can try resuming Glimepiride or insulin if she wants - 6 units of Lantus at bedtime. S SERVICE REP * Telephone Encounter - Celine Rudolph - 04/14/2019 12:27 PM CST Spoke with patient's daughter, advised MD message. Daughter advised that about 1 month ago, patientwas in the hospital for 3-4 days for a low potassium level. From there the patient was discharged to a rehab facility where she spent about 20 days. During this time the patient's eating habits where slightly better then her normal. Daughter also advised that patients meter is pretty accurate, it was checked in her PCP's office on 04/13/2019 . Will any additional recommendations need to be provided. Please advised. S SERVICE REP * Telephone Encounter - Yuliya Ibarra MD - 04/14/2019 12:20 PM CST Is her diet different? Is she getting sick? Her last Hga1C was fairly low and I stopped her Glimepiride? Is her meter accurate? Needs to make sure to wash her hands before checking sugars. If sugars are still high, she may resume her Glimepiride 1 mg with w/ meals as per previous script. Needs to stay well hydrated. S SERVICE REP * Telephone Encounter - Celine Rudolph - 04/14/2019 12:06 PM CST Received call from patient's daughter reporting that patient's blood sugar has consistently been running high, ranging form 220-300. Please advise S SERVICE REP documented in this encounter Plan of Treatment Upcoming Encounters Date Type Department Care Team (Late st Contact Info) Description 07/12/2024 2:30 PM SALES SERVICE REP Office Visit [facility] Oncology and Hematology [facility] [address] [place] [address] Ovidio Nolen MD [address] [facility] [facility] [address] [place] [address] documented as of this encounter Visit Diagnoses Diagnosis Type 2 diabetes mellitus without complication, without long-term current use of insulin- Primary documented in this encounter Care Teams Hand Shaker Relationship Specialty [place] [address] [facility] [address] [place] [address] PCP - General Internal Medicine 08/14/18 documented as of this encounter
--- OUTSIDE RECORDS SUMMARY | 2024-05-26 13:14 | XMS_ITS | Encounter Summary ---
Author Organization [facility] Address [address] [place] [address] Care Team Providers Care Aircraft Engine Mechanic Name Role Phone Theresa Camargo MD Primary Care Provider [phone] Reason for Visit * Reason Comments Medication Refill Encounter Details Date Type Department Care Team (Late st Contact Info) Description 04/18/2021 Refill [facility] Endocrinology [address] [place] [address] Yuliya Ibarra MD [address] [place] [address] Type 2 diabetes mellitus without [...] * Telephone Encounter - Yoselin Vázquez - 04/19/2021 10:27 AM CST JOSE G: 07/26/2020 CA: 08/17/2020, 11/16/2020 NS: 04/06/2021 NOV: Not tal. Warning letter was sent NICAL PHOTOGRAPHER documented in this encounter Plan of Treatment Upcoming Encounters Date Type Department Care Team (Late st Contact Info) Description 07/12/2024 2:30 PM TECHNICAL PHOTOGRAPHER Office Visit [facility] Oncology and Hematology - [place] [address] [place] [address] Ovidio Nolen MD [address] [facility] [address] [place] [address] documented as of this encounter Visit Diagnoses Diagnosis Type 2 diabetes mellitus without complication, without long-term current use of insulin documented in this encounter Care Teams Aircraft Engine Mechanic Relationship Specialty [place] [address] [facility] [address] [place] [address] PCP - General Internal Medicine 08/14/18 documented as of this encounter
--- OUTSIDE RECORDS SUMMARY | 2024-05-26 13:14 | XMS_ITS | Encounter Summary ---
Author Organization [facility] Address [address] [place] [address] Care Team Providers Care Probation And Parole Officer Name Role Phone Theresa Camargo MD Primary Care Provider [phone] Reason for Visit * Reason Comments Medication Refill Encounter Details Date Type Department Care Team (Late st Contact Info) Description 06/22/2019 Refill [facility] Endocrinology [address] [place] [address] Yuliya Ibarra MD [address] [place] [address] Social History Tobacco Use Types [...] Miscellaneous Notes * Telephone Encounter - Ludy Mcdaniels - 06/22/2019 4:52 PM CST JOSE G: 05-24-2019 NOV: 09-20-2019 R D ENGINEER documented in this encounter Plan of Treatment Upcoming Encounters Date Type Department Care Team (Late st Contact Info) Description 07/12/2024 2:30 PM R D ENGINEER Office Visit [facility] Oncology and Hematology - [place] [address] [facility] [place] [address] Ovidio Nolen MD [address] [facility] [address] [place] [address] documented as of this encounter Visit Diagnoses Not on filedocumented in this encounter Care Teams Probation And Parole Officer Relationship Specialty [place] [address] [address] [address] [place] [address] PCP - General Internal Medicine 08/14/18 documented as of this encounter
--- OUTSIDE RECORDS SUMMARY | 2024-05-26 13:15 | XMS_ITS | Encounter Summary ---
Author Organization [facility] Address [address] [place] [address] Care Team Providers Care Rod Drawer Name Role Phone Theresa Camargo MD Primary Care Provider [phone] Reason for Visit * Reason Comments Medication Refill Encounter Details Date Type Department Care Team (Late st Contact Info) Description 10/27/2018 Refill [facility] Endocrinology [address] [place] [address] Yuliya Ibarra MD [address] [place] [address] Social History Tobacco Use Types [...] * Telephone Encounter - Nivia Shea - 10/29/2018 1:47 PM CDT galo 08/14/18 nov 11/18/18 documented in this encounter Plan of Treatment Upcoming Encounters Date Type Department Care Team (Late st Contact Info) Description 07/12/2024 2:30 PM PLANT CARE WORKER Office Visit [facility] Oncology and Hematology - [place] [address] [place] [address] Ovidio Nolen MD [address] [facility] [address] [place] [address] documented as of this encounter Visit Diagnoses Not on filedocumented in this encounter Care Teams Rod Drawer Relationship Specialty [place] [address] [facility] [address] [place] [address] PCP - General Internal Medicine 08/14/18 documented as of this encounter
--- OUTSIDE RECORDS SUMMARY | 2024-05-26 13:15 | XMS_ITS | Encounter Summary ---
Author Organization [facility] Address [address] [place] [address] Care Team Providers Care Fire Prevention Chief Name Role Phone Theresa Camargo MD Primary Care Provider [phone] Encounter Details Date Type Department Care Team (Latest Contact Info) Description 08/14/2018 12:18 PM CDT - 08/14/2018 11:59 PM CDT Hospital Encounter [facility] Laboratory Services Medical [place] A [address] [place] [address] Yuliya Ibarra MD [address] [place] [address] Discharge Disposition: Home or Self [...] (FREESTYLE LANCETS) 28 gauge 100 Each by [facility].(Non-Drug; Combo Route) route daily. 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 90 Tablet 07/16/2018 08/25/2018 levothyroxine 25 mcg tabletIndications:Mul tiple thyroid nodules TAKE 1 TABLET BY MOUTH EVERY DAY IN THE MORNING BEFORE MEALS. 90 Tablet 1 05/06/2018 10/30/2018 glimepiride (AMARYL) 1 mg tablet TAKE ONE AND ONE-HALF TABLETS WITH BREAKFAST, TWO TABLETS AT LUNCH, AND TWO AND ONE-HALF TABLETS AT DINNER 540 Tablet 1 03/02/2018 08/17/2018 sitaGLIPtin (JANUVIA) 100 mg Tablet TAKE 1 TABLET DAILY WITH BREAKFAST. 90 Tablet 1 02/06/2018 09/02/2018 HAYDEN PEN NEEDLE 32 gauge x 5/32 Needle USE TO INJECT INSULIN ONCE DAILY 100 Each 3 01/13/2018 05/05/2020 blood sugar diagnostic (FREESTYLE LITE STRIPS) Strip TEST BLOOD SUGARS TWICE A DAY Dx E11.9. 200 Strip 1 02/18/2017 10/04/2018 documented as of this encounter Plan of Treatment Upcoming Encounters Date Type Department Care Team (Late st Contact Info) Description 07/12/2024 2:30 PM BARREL FILLER HEAD Office Visit [facility] Oncology and Hematology - [place] [address] [place] [address] Ovidio Nolen MD [address] [facility] [address] [place] [address] documented as of this encounter Procedures Procedure Name Priority Date/Time Associated Diagnosis Comments HEMOGLOBIN A1C Routine 08/14/2018 12:25 PM CDT Type 2 diabetes mellitus without complication, without long-term current use of insulin BASIC METABOLIC PANEL Routine 08/14/2018 12:25 PM CDT Type 2 diabetes mellitus without complication, without long-term current use of insulin documented in this encounter Results * (ABNORMAL) BASIC METABOLIC PANEL (08/14/2018 12:25 PM CDT) SODIUM 142 136 - 145 mmol/L 08/14/2018 1:34 PM CDT [employer] [facility]AT[facility] SERVICES - [facility] POTASSIUM 4.2 3.5 - 5.0 mmol/L 08/14/2018 1:34 PM CDT [employer] [facility] - [facility] CHLORIDE 105 98 - 107 mmol/L 08/14/2018 1:34 PM CDT [employer] [facility] - [facility] CO2 28 22 - 29 mmol/L 08/14/2018 1:34 PM CDT [employer] [facility] - [facility] CALCIUM 10.2 8.6 - 10.2 mg/dL 08/14/2018 1:34 PM CDT [employer] [facility]ATORY SERVICES - . [facility] BUN 16 8 - 23 mg/dL 08/14/2018 1:34 PM CDT [employer] [facility] SERVICES - . [facility] CREATININE 0.82 0.51 - 0.95 mg/dL 08/14/2018 1:34 PM CDT [employer] [facility] - [facility] Comment: The GFR result is not clinically significant on patients <18 or >70 years of age. GLUCOSE 116(H) 74 - 99 mg/dL 08/14/2018 1:34 PM CDT [facility] [employer] [facility] GFR >60 mL/min/1.7 3 sq meter 08/14/2018 1:34 PM CDT [facility] [employer] [facility] Comment: eGFR has not been validated [...] result. GFR, >60 mL/min/1.7 3 sq meter 08/14/2018 1:34 PM CDT [facility] [employer] [facility] ANION GAP 9 8 - 16 mmol/L 08/14/2018 1:34 PM CDT [facility] [employer] [facility] Blood Venipuncture / Unknown 08/14/2018 12:25 PM CDT 08/14/2018 12:51 PM CDT Yuliya Ibarra MD CHEMISTRY ORDERABLES [facility] [employer] [facility]# [id number] [facility] [place] [address] * HEMOGLOBIN A1C (08/14/2018 12:25 PM CDT) HEMOGLOBIN A1C 5.3 <5.7 % 08/14/2018 4:42 PM CDT [facility] [employer] [facility] EST. AVG GLUCOSE, A1C 105 mg/dL 08/14/2018 4:42 PM CDT [facility] [employer] [facility] Blood Venipuncture / Unknown 08/14/2018 12:25 PM CDT 08/14/2018 12:51 PM CDT Narrative [facility] LABORATORY [facility] - 08/14/2018 4:42 PM CDT HGB A1C INTERPRETATION NORMAL: ? <5.7% PRE-DIABETES: 5.7 - 6.4% DIABETES: ? 6.5% OR GREATER Yuliya Ibarra MD CHEMISTRY ORDERABLES [employer] [facility]# [id number] [address] [place] [address] documented in this encounter Visit Diagnoses Diagnosis Type 2 diabetes mellitus without complication, without long-term current use of insulin documented in this encounter Care Teams Fire Prevention Chief Relationship Specialty [place] [address] [address] PCP - General Internal Medicine 08/14/18 documented as of this encounter
--- OUTSIDE RECORDS SUMMARY | 2024-05-26 13:15 | XMS_ITS | Encounter Summary ---
Author Organization [employer] [facility] Address [address] [place] [address] Care Team Providers Care Activity Director Name Role Phone Jarrell Garrison MD Primary Care Provider [phone] Reason for Visit * Auth/Cert Specialty Diagnoses / Procedures Referred By Alejandrina vale Referred To Contact Laboratory [facility] [place] A [address], [place] [address] Referral ID Status Reason Start Date Expiration Date Visits Re quested Visits Authorized [id number] 1 1 Encounter Details Date Type Department Care Team (Latest Contact Info) Description 05/06/2018 11:45 AM DATA CENTER ENGINEER - 05/06/2018 11:59 PM [facility] Hospital Encounter [facility] Laboratory Services Medical [place] A [address], [place] [address] Yuliya Ibarra MD [address] [place] [address] Discharge Disposition: Home or Self [...] (FREESTYLE LANCETS) 28 gauge 100 Each by [facility].(Non-Drug; Combo Route) route daily. Dx code 250.02 [...] Indications: instructed to stop prior to surgery levothyroxine 25 mcg tabletIndications:Mul tiple thyroid nodules [...] ONCE DAILY 100 Each 3 01/13/2018 05/05/2020 empagliflozin (JARDIANCE) 10 mg tablet Take 1 Tablet (10 mg) by mouth daily shoe cutter. 90 Tablet 1 10/10/2017 07/16/2018 blood sugar diagnostic (FREESTYLE LITE STRIPS) Strip TEST BLOOD SUGARS TWICE A DAY Dx E11.9. 200 Strip 1 02/18/2017 10/04/2018 documented as of this encounter Plan of Treatment Upcoming Encounters Date Type Department Care Team (Late st Contact Info) Description 07/12/2024 2:30 PM DATA CENTER ENGINEER Office Visit [facility] Oncology and Hematology - [place] [address] [facility] [address] [place] [address] Ovidio Nolen MD [address] [facility] [address] [place] [address] documented as of this encounter Procedures Procedure Name Priority Date/Time Associated Diagnosis Comments HEMOGLOBIN A1C Routine 05/06/2018 11:57 AM DATA CENTER ENGINEER Type 2 diabetes mellitus without complication, without long-term current use of insulin BASIC METABOLIC PANEL Routine 05/06/2018 11:57 AM DATA CENTER ENGINEER Type 2 diabetes mellitus without complication, without long-term current use of insulin documented in this encounter Results * (ABNORMAL) BASIC METABOLIC PANEL (05/06/2018 11:57 AM DATA CENTER ENGINEER) SODIUM 144 136 - 145 mmol/L 05/06/2018 1:02 PM [facility] [employer] [facility] SERVICES - [facility] POTASSIUM 4.4 3.5 - 5.0 mmol/L 05/06/2018 1:02 PM DATA CENTER ENGINEER [employer] [facility]ORATORY SERVICES - . [facility] CHLORIDE 106 98 - 107 mmol/L 05/06/2018 1:02 PM [facility] - . [facility] CO2 27 22 - 29 mmol/L 05/06/2018 1:02 PM [facility] LABORATORY SERVICES - [facility] CALCIUM 10.7(H) 8.6 - 10.2 mg/dL 05/06/2018 1:02 PM [facility] LABORATORY SERVICES - . [facility] BUN 17 8 - 23 mg/dL 05/06/2018 1:02 PM [facility] [employer] [facility] CREATININE 0.80 0.51 - 0.95 mg/dL 05/06/2018 1:02 PM [facility] [employer] [facility] Comment: The GFR result is not clinically significant on patients <18 or >70 years of age. GLUCOSE 114(H) 74 - 99 mg/dL 05/06/2018 1:02 PM [facility] GFR >60 mL/min/1.7 3 sq meter 05/06/2018 1:02 PM [facility] [employer] [facility] Comment: eGFR has not been [...] result. GFR, >60 mL/min/1.7 3 sq meter 05/06/2018 1:02 PM [facility] [employer] [facility] ANION GAP 11 8 - 16 mmol/L 05/06/2018 1:02 PM [facility] [employer] [facility] Blood Venipuncture / Unknown 05/06/2018 11:57 AM DATA CENTER ENGINEER 05/06/2018 12:04 PM DATA CENTER ENGINEER Yuliya Ibarra MD CHEMISTRY ORDERABLES [facility] [facility]# [id number] [address] [facility] [place] [address] * (ABNORMAL) HEMOGLOBIN A1C (05/06/2018 11:57 AM DATA CENTER ENGINEER) HEMOGLOBIN A1C 6.3(H) <5.7 % 05/06/2018 12:46 PM [facility] [employer] [facility] EST. AVG GLUCOSE, A1C 134 mg/dL 05/06/2018 12:46 PM [facility] [employer] [facility] Blood Venipuncture / Unknown 05/06/2018 11:57 AM DATA CENTER ENGINEER 05/06/2018 12:04 PM DATA CENTER ENGINEER Narrative [facility] - 05/06/2018 12:46 PM DATA CENTER ENGINEER HGB A1C INTERPRETATION NORMAL: ? <5.7% PRE-DIABETES: 5.7 - 6.4% DIABETES: ? 6.5% OR GREATER Yuliya Ibarra MD CHEMISTRY ORDERABLES [facility] CLIA# [id number] [facility] [place] [address] documented in this encounter Visit Diagnoses Diagnosis Type 2 diabetes mellitus without complication, without long-term current use of insulin documented in this encounter Care Teams Activity Director Relationship Specialty Start Date End Date Jarrell Garrison MD PCP - General Geriatric Medicine 06/21/16 08/13/18 documented as of this encounter
--- OUTSIDE RECORDS SUMMARY | 2024-05-26 13:15 | XMS_ITS | Encounter Summary ---
Author Organization [facility] Address [address] [place] [address] Care Team Providers Care Marketing Engineer Name Role Phone Theresa Camargo MD Primary Care Provider [phone] Reason for Visit * Reason Onset Date Comments Results 09/30/2018 Encounter Details Date Type Department Care Team (Late st Contact Info) Description 09/30/2018 Telephone [facility] Endocrinology [email or web address] [place] [address] Yuliya Ibarra MD [email or web address] [place] [address] Results Social History Tobacco Use [...] * Telephone Encounter - Nivia Shea - 09/30/2018 1:59 PM CDT Patient informed per note below. Lab ordered for quest. * Telephone Encounter - Nivia Shea - 09/30/2018 1:57 PM CDT ----- Message from Yuliya Ibarra MD sent at 09/25/2018 3:55 PM CDT ----- Her previously biopsied thyroid nodule is still small, but bigger compared to last ultrasound. Let's repeat her TSH level. documented in this encounter Plan of Treatment Upcoming Encounters Date Type Department Care Team (Late st Contact Info) Description 07/12/2024 2:30 PM WELCOME DESK AGENT Office Visit [facility] Oncology and Hematology - [place] [address] [facility] [address] [place] [address] Ovidio Nolen MD [address] [facility] [address] [place] [address] Scheduled Orders Name Type Priority Associated Diagnoses Orde r Schedule TSH Lab Routine Primary hypothyroidism Expected: 09/30/2018 (Approximate), Expires: 09/30/2019 documented as of this encounter Visit Diagnoses Diagnosis Primary hypothyroidism- Primary Unspecified hypothyroidism documented in this encounter Care Teams Marketing Engineer Relationship Specialty Start [place] [address] [facility] [address] [place] [address] PCP - General Internal Medicine 08/14/18 documented as of this encounter
--- OUTSIDE RECORDS SUMMARY | 2024-05-26 13:15 | XMS_ITS | Encounter Summary ---
Author Organization [facility] Address [address] [place] [address] Care Team Providers Care Budget Report Clerk Name Role Phone Jarrell Garrison MD Primary Care Provider [phone] Reason for Visit * Reason Comments Diabetes Encounter Details Date Type Department Care Team (Late st Contact Info) Description 05/06/2018 11:30 AM HAND WOODWORKING SANDER Office Visit [facility] Endocrinology [address] [place] [address] Yuliya Ibarra MD [address] [place] [address] Type 2 diabetes mellitus without [...] Sign Reading Time Taken Comments Blood Pressure 126/86 05/06/2018 11:18 AM HAND WOODWORKING SANDER Pulse 88 05/06/2018 11:18 AM HAND WOODWORKING SANDER Temperature - - Respiratory Rate - - Oxygen Saturation - - Inhaled Oxygen Concentration - - Weight 89.4 kg (197 lb) 05/06/2018 11:18 AM HAND WOODWORKING SANDER Height 165.1 cm (5' 5 ) 05/06/2018 11:18 AM HAND WOODWORKING SANDER Body Mass Index 32.78 05/06/2018 11:18 AM HAND WOODWORKING SANDER documented in this encounter Progress Notes * Yuliya Ibarra MD - 05/06/2018 11:24 AM CST [facility] Endocrinology Yuliya Ibarra M.D. PCP: Dr. Julian Payne Call Center Coordinator: Dr. Alexandre Reese Neurologist: Dr. Nelson Ross Graphic Designer: Dr. Krishan Moran Vascular Surgeon: Dr. Elle Landaverde School Nurse: Dr. Laz Valencia Ramp Supervisor: Dr. Phuong Callejas Reason for visit: DM follow-up. Subjective: Perla Leon is a 77 y.o. female with multiple medical problems, who presents to clinic for DM, thyroid nodules, subclinical hypothyroidism, hypercalcemia, atrial fibrillation, recent dx [...] Levothyroxine 25 mcg daily.Follow-up TSH was WNL. DM regimen: currently on Glimepiride 1.5 mg in am, 2 mg with lunch and 2.5 mg with dinner, Januvia 100 mg daily, Jardiance 10 mg daily. Reports fair glucose control. She is staying well hydrated. Checks her blood sugars 2 times daily, reviewed patient's numbers. Mostly controlled in am, higher before dinner. She tells me she is going out to eat more and sugars are higher then. Glucometer: has one. Last eye exam: 3 months ago - has glaucoma. Previous meds: Levemir 6 units qhs, Could not tolerate Metformin secondary to diarrhea. 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 Patient was found to have hypercalcemia, parathyroid [...] and her last potassium level was normal. Post hospitalization for low potassium a month ago. Needs to establish w/ a new primary care doctor. She is using a walker and she is experiencing frequent falls. Review of Systems: Endo/Gen: She: denies polyuria/polydipsia/nocturia, denies blurred vision. Her most recent eye exam was w/n this year. We discussed the need for yearly eye exams. She has had no hypoglycemia recently. Gen: denies f/chills Eye/vision: denies double vision, pain, visual field cuts ENT: denies dysphagia/disphonia Resp: denies shortness of breath, cough CV: denies chest pain/palpitations/CHARLES GI: denies abdominal pain, diarrhea, constipation, nausea/vomiting : denies dysuria, nocturia, incontinence ENDO:see above Neuro: denies seizures, tremors Psych: denies memory/orientation/mood problems Extr: denies decreased ROM All other review of systems negative Medications: Current Outpatient Prescriptions Medication Sig Dispense Refill ??? LEVOTHYROXINE 25 mcg tablet TAKE 1 TABLET BY MOUTH EVERY DAY IN THE MORNING BEFORE MEALS 30 Tablet 0 ??? glimepiride (AMARYL) 1 mg tablet TAKE ONE AND ONE-HALF TABLETS WITH BREAKFAST, TWO TABLETS AT LUNCH, AND TWO AND ONE-HALF TABLETS AT DINNER 540 Tablet 1 ??? sitaGLIPtin (JANUVIA) 100 mg Tablet TAKE 1 TABLET DAILY WITH BREAKFAST. 90 Tablet 1 ??? albuterol HFA 90 [...] INSULIN ONCE DAILY 100 Each 3 ??? empagliflozin (JARDIANCE) 10 mg tablet Take 1 Tablet (10 mg) by mouth daily dovetailer. 90 Tablet 1 ??? metOLazone (ZAROXOLYN) 2.5 mg tablet Take 2.5 mg by mouth every 7 days. ??? potassium chloride (KLOR-CON) 10 mEq Extended Release tablet TAKE 4 TABLETS DAILY WITH BREAKFAST 360 Tablet 0 ??? blood sugar diagnostic (FREESTYLE LITE STRIPS) Strip TEST BLOOD SUGARS TWICE A DAY Dx E11.9. 200 Strip 1 ??? HYPROMELLOSE (SYSTANE GEL OP) by Ophthalmic [...] for this visit. Social History: Social History Social History ??? Marital status: Spouse name: N/A ??? Number of children: N/A ??? Years of education: N/A Occupational History ??? [employer] Social History Main Topics ??? Smoking status: Never Smoker ??? Smokeless tobacco: Not on file ??? Alcohol use No ??? Drug use: No ??? Sexual activity: Not on file Comment: hyst Other Topics Concern ??? Not on file Social History Narrative ??? No narrative on file Family medical history: Family History Problem Relation Age of Onset ??? Breast Cancer Mother ??? Hypertension Brother ??? High Cholesterol Brother Medical History: Past Medical History: Diagnosis Date ??? Arthritis hands and back ??? Asthma ??? Cancer skin ??? CVD (cerebrovascular disease) 4174-6323 TIA x2 ??? Diabetes no medication at [...] disorder 2000 after stroke-none since ??? Shingles [id number] x3 ??? Spondylolisthesis l4-l5 Patient Active Problem List Diagnosis Code ? ? ssc, a&p, no sling N99.3 ??? Multiple thyroid nodules E04.2 ??? Hypercalcemia E83.52 ??? Type 2 diabetes mellitus without complication, without long-term current use of insulin E11.9 Past Surgical History: Procedure Laterality Date ??? HX CHOLECYSTECTOMY 1998 ??? HX HEART CATHETERIZATION 2002 dr. Valencia ??? [facility] ??? HX HYSTERECTOMY 1986 ??? HX KNEE ARTHROSCOPY 7422-8752 right knee ??? HX SURGICAL OTHER 1975 ulcer removed from vocal cord ??? HX SURGICAL OTHER 1985 surgery for broken nose ??? HX SURGICAL OTHER 09/10/2010 ANTERIOR POSTERIOR REPAIR performed by FRANKLYN PACK at [facility] ??? [place] ANTERIOR COLPORRAPHY RPR CYSTOCELE W/CYSTO 09/10/2010 CYSTOCELE REPAIR performed by FRANKLYN PACK at [facility] ??? [place] POST COLPORRHAPHY,RECTUM/VAGINA 09/10/2010 RECTOCELE REPAIR performed by FRANKLYN PACK at [facility] MA[facility] ??? [place] REPAIR ENTEROCELE,VAG APPRCH 09/10/2010 ENTEROCELE REPAIR VAGINAL APPROACH performed by FRANKLYN PACK at [facility] ??? [place] REPAIR OF PERINEUM,NON OBSTETRICAL 09/10/2010 PERINEOPLASTY performed by FRANKLYN PACK at [facility] OR [facility] ??? [place] REPR VAGINAL PROLAPSE,SACROSP LIG 09/10/2010 SACROSPINOUS LIGAMENT FIXATION performed by FRANKLYN PACK at [facility] OR [facility] Physical Findings: Wt Readings from Last 3 Encounters: 05/06/18 89.4 kg (197 lb) 01/23/18 87.5 kg (193 lb) 09/15/17 95.7 kg (211 lb) BP 126/86 Pulse 88 Ht 5' 5 (1.651 m) Wt 89.4 kg (197 lb) BMI 32.78 kg/m?? Elevated diastolic blood pressure Physical Exam: General appearance: alert, well appearing, [...] 7.0% Lab Results Component Value Date/Time HGBA1C 6.8 (H) 01/23/2018 01:48 PM Component Latest Ref Rng & Units [...] Creatinine 0.81 Calcium 10.3 TSH 4.45 Reviewed [facility] lab result done on 04/19/14 CMP [...] 31 Lab Results Component Value Date/Time SODIUM 140 01/23/2018 01:48 PM SODIUM 142 05/02/2017 11:47 AM SODIUM 143 12/12/2016 04:14 AM POTASSIUM 4.3 01/23/2018 01:48 PM POTASSIUM 3.0 (L) 05/02/2017 11:47 AM POTASSIUM 4.2 12/12/2016 04:14 AM CHLORIDE 102 01/23/2018 01:48 PM CHLORIDE 101 05/02/2017 11:47 AM CHLORIDE 108 12/12/2016 04:14 AM CO2 24 01/23/2018 01:48 PM CO2 27 05/02/2017 11:47 AM CO2 28 12/12/2016 04:14 AM BUN 14 01/23/2018 01:48 PM BUN 17 05/02/2017 11:47 AM BUN 15 12/12/2016 04:14 AM GLUCOSE 100 (H) 01/23/2018 01:48 PM GLUCOSE 115 (H) 05/02/2017 11:47 AM GLUCOSE 102 (H) 12/12/2016 04:14 AM Lab Results Component Value Date/Time ALBUMIN 3.9 01/23/2018 01:48 PM ALBUMIN 4.2 05/02/2017 11:47 AM ALBUMIN 3.8 12/12/2016 04:14 AM CREATININE 0.79 01/23/2018 01:48 PM CREATININE 0.82 05/02/2017 11:47 AM CREATININE 0.99 (H) 12/12/2016 04:14 AM Lab Results Component Value Date/Time TSH 3.71 03/09/2018 03:40 PM TSH 10.34 (H) 01/23/2018 01:48 PM TSH 5.24 (H) 05/02/2017 11:47 AM Lab Results Component Value Date/Time VITAMIN [...] right thyroid lobe nodule is stable. ?? 10/2017 DEXA: BONE MINERAL DENSITY STUDY INDICATION:?Postmenopausal [...] diet and exercise as tolerated with her. Improved blood glucose. Continue current meds, was able to stop insulin. Needs to let me know if problems. Diabetes plan reviewed with patient. Will check HgA1C, BMP, urine microalbumin/creatinine. 2. H/o Hypercalcemia - Most likely primary hyperparathyroidism. H/o high PTH Mild osteopenia per DEXA scan. needs to stay well hydrated. Conservative management. Needs to avoid falls. 3. Hypokalemia - takes Lasix at this time, KCL 40 mEq daily, but needs to be monitored by a physician prescribing her diuretics. 4. Thyroid nodules, primary hypothyroidism. Continue current thyroid dose - Levothyroxine 25 mcg daily. She is euthyroid. Post left nodule FNA w/ benign results. Patient is to call if experiences increase in her neck size/dysphagia/dyspnea/voice changes/tremors/palpitations or other problems arise. Follow-up in 3 months. >15 min of this 25 min visit was discussion/counseling. Yuliya Ibarra MD WOODWORKING SANDER documented in this encounter Plan of Treatment Upcoming Encounters Date Type Department Care Team (Late st Contact Info) Description 07/12/2024 2:30 PM HAND WOODWORKING SANDER Office Visit [facility] Oncology and Hematology - [place] [address] [place] [address] Ovidio Nolen MD [address] [address] documented as of this encounter Results * (ABNORMAL) BASIC METABOLIC PANEL (05/06/2018 11:57 AM HAND WOODWORKING SANDER) SODIUM 144 136 - 145 mmol/L 05/06/2018 1:02 PM [facility] - [facility] POTASSIUM 4.4 3.5 - 5.0 mmol/L 05/06/2018 1:02 PM [facility] - . [facility] CHLORIDE 106 98 - 107 mmol/L 05/06/2018 1:02 PM [facility] - . [facility] CO2 27 22 - 29 mmol/L 05/06/2018 1:02 PM [facility] - . [facility] CALCIUM 10.7(H) 8.6 - 10.2 mg/dL 05/06/2018 1:02 PM [facility] - . [facility] BUN 17 8 - 23 mg/dL 05/06/2018 1:02 PM [facility]. [facility] CREATININE 0.80 0.51 - 0.95 mg/dL 05/06/2018 1:02 PM [facility] Comment: The GFR result is not clinically significant on patients <18 or >70 years of age. GLUCOSE 114(H) 74 - 99 mg/dL 05/06/2018 1:[address] [facility] [address] [facility] GFR >60 mL/min/1.7 3 sq meter 05/06/2018 1:02 PM [facility] Comment: eGFR has not been validated for [...] mL/min/1.7 3 sq meter 05/06/2018 1:02 PM [facility] ANION GAP 11 8 - 16 mmol/L 05/06/2018 1:02 PM HAND WOODWORKING SANDER [facility] Blood Venipuncture / Unknown 05/06/2018 11:57 AM HAND WOODWORKING SANDER 05/06/2018 12:04 PM HAND WOODWORKING SANDER Yuliya Ibarra MD CHEMISTRY ORDERABLES Performing Organization Address [facility] Co de Phone Number [facility]# [id number] [address] [place] [address] * (ABNORMAL) HEMOGLOBIN A1C (05/06/2018 11:57 AM HAND WOODWORKING SANDER) HEMOGLOBIN A1C 6.3(H) <5.7 % 05/06/2018 12:46 PM [facility] EST. AVG GLUCOSE, A1C 134 mg/dL 05/06/2018 12:46 PM [facility] Blood Venipuncture / Unknown 05/06/2018 11:57 AM HAND WOODWORKING SANDER 05/06/2018 12:04 PM HAND WOODWORKING SANDER Narrative [facility] - 05/06/2018 12:46 PM HAND WOODWORKING SANDER HGB A1C INTERPRETATION NORMAL: ? <5.7% PRE-DIABETES: 5.7 - 6.4% DIABETES: ? 6.5% OR GREATER Yuliya Ibarra MD CHEMISTRY ORDERABLES Performing Organization Address [facility] Co de Phone Number [facility]# [id number] [address] [place] [address] documented in this encounter Visit Diagnoses Diagnosis Type 2 diabetes mellitus without complication, without long-term current use of insulin- Primary Multiple thyroid nodules Nontoxic multinodular goiter Primary hypothyroidism Unspecified hypothyroidism Hypercalcemia Obesity (BMI 30.0-34.9) Obesity, unspecified documented in this encounter Care Teams Budget Report Clerk Relationship Specialty Start Date End Date Jarrell Garrison MD PCP - General Geriatric Medicine 06/21/16 08/13/18 documented as of this encounter
--- OUTSIDE RECORDS SUMMARY | 2024-05-26 13:15 | XMS_ITS | Encounter Summary ---
Author Organization [facility] Address [address] [place] [address] Care Team Providers Care Housekeeper Manager Name Role Phone Theresa Camargo MD Primary Care Provider [phone] Reason for Visit * Reason Comments Medication Refill Encounter Details Date Type Department Care Team (Late st Contact Info) Description 01/22/2019 Refill [facility] Endocrinology [email or web address] [place] [address] Yuliya Ibarra MD [email or web address] [place] [address] Social History Tobacco Use Types [...] * Telephone Encounter - Nivia Shea - 01/26/2019 10:56 AM CDT galo 01/20/19 nov 05/24/19 documented in this encounter Plan of Treatment Upcoming Encounters Date Type Department Care Team (Late st Contact Info) Description 07/12/2024 2:30 PM DRYERMAN/WOMAN Office Visit [facility] Oncology and Hematology - [place] [address] [place] [address] Ovidio Nolen MD [address] [place] [address] documented as of this encounter Visit Diagnoses Not on filedocumented in this encounter Care Teams Housekeeper Manager Relationship Specialty [place] [address] [address] [place] [address] PCP - General Internal Medicine 08/14/18 documented as of this encounter
--- OUTSIDE RECORDS SUMMARY | 2024-05-26 13:15 | XMS_ITS | Encounter Summary ---
Author Organization [facility] Address [address] [place] [address] Care Team Providers Care Lean Sensei Name Role Phone Theresa Camargo MD Primary Care Provider [phone] Encounter Details Date Type Department Care Team (Late Contact Info) Description 08/14/2018 Orders Only [facility] Admitting [address] [place] [address] Yuliya Ibarra MD [address] [place] [address] Social History Tobacco Use Types [...] (Late Contact Info) Description 07/12/2024 2:30 PM ELECTRON BEAM PHOTO MASK TECHNICIAN Office Visit [facility] Oncology and Hematology - [place] [address] [place] [address] Ovidio Nolen MD [address] [place] [address] documented as of this encounter Visit Diagnoses Not on filedocumented in this encounter Care Teams Lean Sensei Relationship Specialty [place] [address] [address] PCP - General Internal Medicine 08/14/18 documented as of this encounter
--- OUTSIDE RECORDS SUMMARY | 2024-05-26 13:15 | XMS_ITS | Encounter Summary ---
Author Organization [facility] Address [address] [place] [address] Care Team Providers Care Engine Test Cell Technician Name Role Phone Jarrell Garrison MD Primary Care Provider [phone] Reason for Visit * Reason Onset Date Comments Results 05/06/2018 labs dm Encounter Details Date Type Department Care Team (Late st Contact Info) Description 05/06/2018 Patient Outreach [facility] Endocrinology [address] [place] [address] Yuliya Ibarra MD [address] [place] [address] Results (labs dm) Social History Tobacco Use Types Packs/Day Years Used Date Smoking Tobacco: Never Alcohol Use Standard Drinks/Week Comments No 0 (1 standard drink = 0.6 oz pur e alcohol) Sex and Gender Information Value Date Recorded Sex Assigned at Not on file Gender Identity Not on file Sexual Orientation Not on file documented as of this encounter Miscellaneous Notes * Telephone Encounter - Kati Quintero - 05/20/2018 4:51 PM PROP DRAWER Mailed results to pt home. DRAWER * Telephone Encounter - Kati Quintero - 05/06/2018 1:47 PM PROP DRAWER ----- Message from Yuliya Ibarra MD sent at 05/06/2018 1:07 PM PROP DRAWER ----- Good Hga1C Needs to let me know if having low sugars. Normal potassium Calcium is slightly high again, will continue to monitor. DRAWER documented in this encounter Plan of Treatment Upcoming Encounters Date Type Department Care Team (Late st Contact Info) Description 07/12/2024 2:30 PM PROP DRAWER Office Visit [facility] Oncology and Hematology - [place] [address] [place] [address] Ovidio Nolen MD [address] [place] [address] documented as of this encounter Visit Diagnoses Not on filedocumented in this encounter Care Teams Engine Test Cell Technician Relationship Specialty Start Date End Date Jarrell Garrison MD PCP - General Geriatric Medicine 06/21/16 08/13/18 documented as of this encounter
--- OUTSIDE RECORDS SUMMARY | 2024-05-26 13:15 | XMS_ITS | Encounter Summary ---
Author Organization [facility] Address [address] [place] [address] Care Team Providers Care Backup Engineer Name Role Phone Theresa Camargo MD Primary Care Provider [phone] Encounter Details Date Type Department Care Team (Late Contact Info) Description 01/20/2019 Orders Only [facility] Admitting [address] [place] [address] Yuliya Ibarra MD [address] [place] [address] Social History Tobacco Use Types [...] (Late Contact Info) Description 07/12/2024 2:30 PM OVERSIZE LOAD PILOT ESCORT Office Visit [facility] Oncology and Hematology - [place] [address] [facility] [address] [place] [address] Ovidio Nolen MD [address] [place] [address] documented as of this encounter Visit Diagnoses Not on filedocumented in this encounter Care Teams Backup Engineer Relationship Specialty Start [place] [address] [address] PCP - General Internal Medicine 08/14/18 documented as of this encounter
--- OUTSIDE RECORDS SUMMARY | 2024-05-26 13:15 | XMS_ITS | Encounter Summary ---
Author Organization [employer] Address [address] [place] [address] Care Team Providers Care Supervisor Grading Name Role Phone Theresa Camargo MD Primary Care Provider [phone] Encounter Details Date Type Department Care Team (Latest Contact Info) Description 01/20/2019 11:51 AM CDT - 01/20/2019 11:59 PM CDT Hospital Encounter [facility] Laboratory Services [facility] [place] A [address] [place] [address] Yuliya Ibarra MD [address] [place] [address] Discharge Disposition: Home or Self [...] (FREESTYLE LANCETS) 28 gauge 100 Each by [facility].(Non-Drug; Combo Route) route daily. Dx code 250.02 [...] prior to surgery glimepiride (AMARYL) 1 mg tablet Take 1 Tablet (1 mg) by mouth 3 times daily. 270 Tablet 01/20/2019 04/14/2019 levothyroxine 25 mcg tabletIndications:Mul tiple thyroid nodules TAKE 1 TABLET DAILY IN THE MORNING BEFORE A MEAL. 90 Tablet 1 11/02/2018 04/30/2019 blood sugar diagnostic (FREESTYLE LITE STRIPS) Strip TEST BLOOD SUGARS TWICE A DAY DX E11.9.. 200 Strip 1 10/07/2018 06/22/2019 sitaGLIPtin (JANUVIA) 100 mg Tablet TAKE 1 TABLET DAILY WITH BREAKFAST. 30 Tablet 09/02/2018 01/26/2019 empagliflozin (JARDIANCE) 10 mg tablet Take 1 Tablet (10 mg) by mouth daily ben day artist. 90 Tablet 1 08/25/2018 07/19/2019 HAYDEN PEN NEEDLE 32 gauge x 5/32 Needle USE TO INJECT INSULIN ONCE DAILY 100 Each 3 01/13/2018 05/05/2020 documented as of this encounter Plan of Treatment Upcoming Encounters Date Type Department Care Team (Late st Contact Info) Description 07/12/2024 2:30 PM COLD MILL INSPECTOR Office Visit [facility] Oncology and Hematology - [place] [address] [facility] [address] [place] [address] Ovidio Nolen MD [address] [facility] [address] [place] [address] documented as of this encounter Procedures Procedure Name Priority Date/Time Associated Diagnosis Comments TSH Routine 01/20/2019 11:59 AM CDT Primary hypothyroidism HEMOGLOBIN A1C Routine 01/20/2019 11:59 AM CDT Type 2 diabetes mellitus without complication, without long-term current use of insulin BASIC METABOLIC PANEL Routine 01/20/2019 11:59 AM CDT Type 2 diabetes mellitus without complication, without long-term current use of insulin documented in this encounter Results * (ABNORMAL) BASIC METABOLIC PANEL (01/20/2019 11:59 AM CDT) SODIUM 141 136 - 145 mmol/L 01/20/2019 12:50 PM CDT [employer] LABORATORY SERVICES - [facility] POTASSIUM 3.1(L) 3.5 - 5.0 mmol/L 01/20/2019 12:50 PM CDT [facility] LABORATORY SERVICES - . [facility] CHLORIDE 98 98 - 107 mmol/L 01/20/2019 12:50 PM T [employer] LABORATORY SERVICES - . [place] CO2 32(H) 22 - 29 mmol/L 01/20/2019 12:50 PM CDT [facility] LABORATORY SERVICES - . [facility] CALCIUM 10.7(H) 8.6 - 10.2 mg/dL 01/20/2019 12:50 PM CDT [facility] LABORATORY SERVICES - . [facility] BUN 22 8 - 23 mg/dL 01/20/2019 12:50 PM T [facility] LABORATORY SERVICES - . [facility] CREATININE 0.86 0.51 - 0.95 mg/dL 01/20/2019 12:50 PM T [facility] LABORATORY SERVICES - . [facility] Comment: The GFR result is not clinically significant on patients <18 or >70 years of age. GLUCOSE 99 74 - 99 mg/dL 01/20/2019 12:50 PM CDT [employer] LABORATORY [facility] GFR >60 mL/min/1.7 3 sq meter 01/20/2019 12:50 PM T [facility] LABORATORY [facility] Comment: eGFR has not been [...] result. GFR, >60 mL/min/1.7 3 sq meter 01/20/2019 12:50 PM CDT [facility] LABORAT[facility] ANION GAP 11 8 - 16 mmol/L 01/20/2019 12:50 PM CDT [facility] Blood Venipuncture / Unknown 01/20/2019 11:59 AM CDT 01/20/2019 12:08 PM CDT Yuliya Ibarra MD CHEMISTRY ORDERABLES [facility] [id number] [address] [facility] [place] [address] * TSH (01/20/2019 11:59 AM CDT) TSH 3.35 0.27 - 4.20 uIU/mL 01/20/2019 12:57 PM CDT [employer] [facility] Blood Venipuncture / Unknown 01/20/2019 11:59 AM CDT 01/20/2019 12:08 PM CDT Yuliya Ibarra MD CHEMISTRY ORDERABLES [facility] [employer] [facility] CLIA# [id number] [address] [place] [address] * (ABNORMAL) HEMOGLOBIN A1C (01/20/2019 11:59 AM CDT) HEMOGLOBIN A1C 5.9(H) <5.7 % 01/20/2019 2:52 PM CDT [facility] LABORATORY [facility] EST. AVG GLUCOSE, A1C 123 mg/dL 01/20/2019 2:52 PM CDT [facility] LAB[facility] Blood Venipuncture / Unknown 01/20/2019 11:59 AM CDT 01/20/2019 12:08 PM CDT Narrative [facility] LABORATORY [facility] - 01/20/2019 2:52 PM CDT HGB A1C INTERPRETATION NORMAL: ? <5.7% PRE-DIABETES: 5.7 - 6.4% DIABETES: ? 6.5% OR GREATER Yuliya Ibarra MD CHEMISTRY ORDERABLES [facility] [employer] [facility]# [id number] [address] [place] [address] documented in this encounter Visit Diagnoses Diagnosis Type 2 diabetes mellitus without complication, without long-term current use of insulin Primary hypothyroidism Unspecified hypothyroidism documented in this encounter Care Teams Supervisor Grading Relationship Specialty [place] [address] [address] PCP - General Internal Medicine 08/14/18 documented as of this encounter
--- OUTSIDE RECORDS SUMMARY | 2024-05-26 13:15 | XMS_ITS | Encounter Summary ---
Author Organization [facility] Address [address] [place] [address] Care Team Providers Care Parking Supervisor Name Role Phone Jarrell Garrison MD Primary Care Provider [phone] Reason for Visit * Reason Comments Medication Refill Encounter Details Date Type Department Care Team (Late st Contact Info) Description 04/27/2018 Refill [facility] Endocrinology [address] [place] [address] Yuliya Ibarra MD [address] [place] [address] Multiple thyroid nodules Social History [...] * Telephone Encounter - Kati Quintero - 04/28/2018 1:20 PM COMPUTER OPERATIONS TECHNICIAN Nov 05/06/18 galo 01/23/18 UTER OPERATIONS TECHNICIAN documented in this encounter Plan of Treatment Upcoming Encounters Date Type Department Care Team (Late st Contact Info) Description 07/12/2024 2:30 PM COMPUTER OPERATIONS TECHNICIAN Office Visit [facility] Oncology and Hematology - [place] [address] [facility] [address] [place] [address] Ovidio Nolen MD [address] [facility] [address] [place] [address] documented as of this encounter Visit Diagnoses Diagnosis Multiple thyroid nodules Nontoxic multinodular goiter documented in this encounter Care Teams Parking Supervisor Relationship Specialty Start Date End Date Jarrell Garrison MD PCP - General Geriatric Medicine 06/21/16 08/13/18 documented as of this encounter
--- OUTSIDE RECORDS SUMMARY | 2024-05-26 13:15 | XMS_ITS | Encounter Summary ---
Author Organization [facility] Address [address] [place] [address] Care Team Providers Care Business Agent Name Role Phone Jarrell Garrison MD Primary Care Provider [phone] Reason for Visit * Reason Onset Date Comments Information 02/09/2018 diaBETIC SHOE FO RM Encounter Details Date Type Department Care Team (Late st Contact Info) Description 02/09/2018 Telephone [facility] Endocrinology [address] [place] [address] Yuliya Ibarra MD [address] [place] [address] Information (diaBETIC SHOE FORM ) Social History Tobacco Use Types Packs/Day [...] * Telephone Encounter - Bekah Wang - 02/09/2018 6:24 PM CDT RECEIVED DIABETIC SHOE Request , paperwork completed and faxed back with last ov Scanned documented in this encounter Plan of Treatment Upcoming Encounters Date Type Department Care Team (Late st Contact Info) Description 07/12/2024 2:30 PM ENGINEERING GEOLOGIST Office Visit [facility] Oncology and Hematology - [place] [address] [facility] [address] [place] [address] Ovidio Nolen MD [address] [facility] [address] [place] [address] documented as of this encounter Visit Diagnoses Not on filedocumented in this encounter Care Teams Business Agent Relationship Specialty Start Date End Date Jarrell Garrison MD PCP - General Geriatric Medicine 06/21/16 08/13/18 documented as of this encounter
--- OUTSIDE RECORDS SUMMARY | 2024-05-26 13:15 | XMS_ITS | Encounter Summary ---
Author Organization [facility] Address [address] [place] [address] Care Team Providers Care Skip Locator Name Role Phone Theresa Camargo MD Primary Care Provider [phone] Reason for Visit * Reason Comments Medication Refill Encounter Details Date Type Department Care Team (Late st Contact Info) Description 09/02/2018 Refill [facility] Endocrinology [address] [place] [address] Yuliya Ibarra MD [address] [place] [address] Social History Tobacco Use Types [...] * Addendum Note - Ina Laguna - 09/02/2018 3:25 PM CDTAddended by: INA LAGUNA on: 09/02/2018 03:25 PM Modules accepted: Orders * Telephone Encounter - Ina Laguna - 09/02/2018 3:05 PM CDT galo 08/14/18 , nov 11/18/18 Pt also needs supply sent to local pharm Until her mail order arrives documented in this encounter Plan of Treatment Upcoming Encounters Date Type Department Care Team (Late st Contact Info) Description 07/12/2024 2:30 PM BUYING INTERN Office Visit [facility] Oncology and Hematology - [place] [address] [facility] [address] [place] [address] Ovidio Nolen MD [address] [facility] [address] [place] [address] documented as of this encounter Visit Diagnoses Not on filedocumented in this encounter Care Teams Skip Locator Relationship Specialty [place] [address] [facility] [address] [place] [address] PCP - General Internal Medicine 08/14/18 documented as of this encounter
--- OUTSIDE RECORDS SUMMARY | 2024-05-26 13:15 | XMS_ITS | Encounter Summary ---
Author Organization [facility] Address [address] [place] [address] Care Team Providers Care Division Service Manager Name Role Phone Theersa Camargo MD Primary Care Provider [phone] Reason for Visit * Reason Onset Date Comments Results 01/21/2019 Encounter Details Date Type Department Care Team (Late st Contact Info) Description 01/21/2019 Telephone [facility] Endocrinology [address] [place] [address] Yuliya Ibarra MD [address] [place] [address] Results Social History Tobacco Use [...] * Telephone Encounter - Celine Rudolph - 01/21/2019 12:28 PM CDT Called spoke with patient, advised MD message regarding results. Patient voiced understanding. Spoke with Carol Travis [facility] at patient's [employer] pharmacy, prescription has been canceled. * Telephone Encounter - Celine Rudolph - 01/21/2019 12:28 PM CDT ----- Message from Yuliya Ibarra MD sent at 01/20/2019 3:02 PM CDT ----- HgA1C is still fairly low. Ok to stop Glimepiride and continue other meds. Please [facility] to cancel her script. Her potassium is on a low side. Thyroid is normal Please fax her results to her primary care doctor. documented in this encounter Plan of Treatment Upcoming Encounters Date Type Department Care Team (Late st Contact Info) Description 07/12/2024 2:30 PM PIN WORKER Office Visit [facility] Oncology and Hematology [facility] [address] [facility] [address] [place] [address] Ovidio Nolen MD [address] [facility] [address] [place] [address] documented as of this encounter Visit Diagnoses Not on filedocumented in this encounter Care Teams Division Service Manager Relationship Specialty [place] [address] [facility] [address] [place] [address] PCP - General Internal Medicine 08/14/18 documented as of this encounter
--- OUTSIDE RECORDS SUMMARY | 2024-05-26 13:15 | XMS_ITS | Encounter Summary ---
Author Organization [employer] Address [address] [place] [address] Care Team Providers Care District Manager Postal Service Name Role Phone Theresa Camargo MD Primary Care Provider [phone] Reason for Referral * Radiology Services (Routine) - Closed Specialty Diagnoses / Procedures Referred By Alejandrina vale Referred To Contact Ultrasound Diagnoses Multiple thyroid nodules Procedures US HEAD NECK TISSUES Yuliya Ibarra MD [address] [place] [address] [facility] [address] [place] [address] [address] Referral ID Status Reason Start Date Expiration Date V isits Requested Visits Authorized [id number] Closed [facility] CTS 08/14/2018 09/14/2019 1 1 Reason for Visit * Radiology Services (Routine) - Closed Specialty Diagnoses / Procedures Referred By Alejandrina vale Referred To Contact Ultrasound Diagnoses Multiple thyroid nodules Procedures US HEAD NECK TISSUES Yuliya Ibarra MD [address] [place] [address] [facility] [address] [place] [address] Referral ID Status Reason Start Date Expiration Date V isits Requested Visits Authorized [id number] Closed [facility] CTS 08/14/2018 09/14/2019 1 1 Encounter Details Date Type Department Care Team (Latest Contact Info) Description 09/25/2018 2:00 PM CDT - 09/25/2018 11:59 PM CDT Hospital Encounter [facility] [place] [address] Yuliya Ibarra MD [address] [place] [address] Discharge Disposition: Home or Self [...] (FREESTYLE LANCETS) 28 gauge 100 Each by [facility].(Non-Drug; Combo Route) route daily. [...] Indications: instructed to stop prior to surgery sitaGLIPtin (JANUVIA) 100 mg Tablet TAKE 1 TABLET DAILY WITH BREAKFAST. 30 Tablet 09/02/2018 01/26/2019 empagliflozin (JARDIANCE) 10 mg tablet Take 1 Tablet (10 mg) by mouth daily sample tailor. 90 Tablet 1 08/25/2018 07/19/2019 glimepiride (AMARYL) 1 mg tablet Take 1 Tablet (1 mg) by mouth 3 times daily. 90 Tablet 08/17/2018 10/27/2018 levothyroxine 25 mcg tabletIndications:Mul tiple thyroid nodules TAKE 1 TABLET BY MOUTH EVERY DAY IN THE MORNING BEFORE MEALS. 90 Tablet 1 05/06/2018 10/30/2018 HAYDEN PEN NEEDLE 32 gauge x 5/32 Needle USE TO INJECT INSULIN ONCE DAILY 100 Each 3 01/13/2018 05/05/2020 blood sugar diagnostic (FREESTYLE LITE STRIPS) Strip TEST BLOOD SUGARS TWICE A DAY Dx E11.9. 200 Strip 1 02/18/2017 10/04/2018 documented as of this encounter Plan of Treatment Upcoming Encounters Date Type Department Care Team (Late st Contact Info) Description 07/12/2024 2:30 PM BATCH ANALYST Office Visit [facility] Oncology and Hematology - [place] [address] [place] [address] Ovidio Nolen MD [address] [facility] [address] [place] [address] documented as of this encounter Procedures Procedure Name Priority Date/Time Associated Diagnosis Comments US HEAD NECK TISSUES Routine 09/25/2018 2:47 PM CDT Multiple thyroid nodules documented in this encounter Results * US HEAD NECK TISSUES (09/25/2018 2:47 PM CDT) Anatomical Region Laterality Modality Head Ultrasound 09/25/2018 2:48 PM CDT Impressions 09/25/2018 3:24 PM CDT IMPRESSION: Interval increase in size of previously biopsied highly suspicious (TR 5) nodule in the left lower pole. DICTATION LOCATION: Location [address] [place] [address] 09/25/2018 3:24 PM CDT US HEAD NECK TISSUES DATE: 09/25/2018 2:47 PM HISTORY: Thyroid nodules. COMPARISON: 10/17/2017 FINDINGS: The thyroid is normal in size and echogenicity. The right lobe of the thyroid gland measures 3.6 x 2.0 x 1.5 cm. The left lobe measures 3.9 x 1.8 x 1.4 cm. There are small colloid cysts bilaterally. In the left lower pole there is a solid, hypoechoic nodule. The previously seen calcifications are less well-demonstrated. It measures 0.9 x 0.6 x 0.9 cm, increased from prior when it measured 0.7 x 0.6 x 0.7 cm. There are no new nodules. There is no lymphadenopathy. Procedure Note Ashlee Wilson MD - 09/25/2018 US HEAD NECK TISSUES DATE: 09/25/2018 2:47 PM HISTORY: Thyroid nodules. COMPARISON: 10/17/2017 FINDINGS: The thyroid is normal in size and echogenicity. The right lobe of the thyroid gland measures 3.6 x 2.0 x 1.5 cm. The left lobe measures 3.9 x 1.8 x 1.4 cm. There are small colloid cysts bilaterally. In the left lower pole there is a solid, hypoechoic nodule. The previously seen calcifications are less well-demonstrated. It measures 0.9 x 0.6 x 0.9 cm, increased from prior when it measured 0.7 x 0.6 x 0.7 cm. There are no new nodules. There is no lymphadenopathy. IMPRESSION: Interval increase in size of previously biopsied highly suspicious (TR 5) nodule in the left lower pole. DICTATION LOCATION: Location - [facility] Yuliya Ibarra MD US ORDERABLES documented in this encounter Visit Diagnoses Diagnosis Multiple thyroid nodules Nontoxic multinodular goiter documented in this encounter Care Teams District Manager Postal Service Relationship Specialty [place] [address] [address] PCP - General Internal Medicine 08/14/18 documented as of this encounter
--- OUTSIDE RECORDS SUMMARY | 2024-05-26 13:15 | XMS_ITS | Encounter Summary ---
Author Organization [employer] Address [address] [place] [address] Care Team Providers Care Knot Saw Operator Name Role Phone Jarrell Garrison MD Primary Care Provider [phone] Encounter Details Date Type Department Care Team (Latest Contact Info) Description 03/09/2018 3:38 PM CDT - 03/09/2018 11:59 PM CDT Hospital Encounter [facility] Laboratory Services Medical [place] A [address] [place] [address] Yuliya Ibarra MD [address] [place] [address] Discharge Disposition: Home or Self [...] (FREESTYLE LANCETS) 28 gauge 100 Each by [facility].(Non-Drug; Combo Route) route daily. Dx code 250.02 [...] to surgery glimepiride (AMARYL) 1 mg tablet TAKE ONE AND ONE-HALF TABLETS WITH BREAKFAST, TWO TABLETS AT LUNCH, AND TWO AND ONE-HALF TABLETS AT DINNER 540 Tablet 1 03/02/2018 08/17/2018 sitaGLIPtin (JANUVIA) 100 mg Tablet TAKE 1 TABLET DAILY WITH BREAKFAST. 90 Tablet 1 02/06/2018 09/02/2018 levothyroxine (SYNTHROID) 25 mcg tabletIndications:Mul tiple thyroid nodules Take 1 Tablet (25 mcg) by mouth daily emergency room specialist TAKE WITHOUT FOOD. 30 Tablet 2 01/26/2018 04/27/2018 HAYDEN PEN NEEDLE 32 gauge x 5/32 Needle USE TO INJECT INSULIN ONCE DAILY 100 Each 3 01/13/2018 05/05/2020 empagliflozin (JARDIANCE) 10 mg tablet Take 1 Tablet (10 mg) by mouth daily emergency room specialist. 90 Tablet 1 10/10/2017 07/16/2018 blood sugar diagnostic (FREESTYLE LITE STRIPS) Strip TEST BLOOD SUGARS TWICE A DAY Dx E11.9. 200 Strip 1 02/18/2017 10/04/2018 documented as of this encounter Plan of Treatment Upcoming Encounters Date Type Department Care Team (Late st Contact Info) Description 07/12/2024 2:30 PM REGISTER CLERK Office Visit [facility] Oncology and Hematology [facility] [address] [place] [address] Ovidio Nolen MD [address] [facility] [address] [place] [address] documented as of this encounter Procedures Procedure Name Priority Date/Time Associated Diagnosis Comments TSH Routine 03/09/2018 3:40 PM CDT Multiple thyroid nodules documented in this encounter Results * TSH (03/09/2018 3:40 PM CDT) TSH 3.71 0.27 - 4.20 uIU/mL 03/09/2018 7:08 PM CDT [facility] Blood Venipuncture / Unknown 03/09/2018 3:40 PM CDT 03/09/2018 5:00 PM CDT Yuliya Ibarra MD CHEMISTRY ORDERABLES [facility] LABORATORY [facility] CLIA# [id number] [address] [facility] [place] [address] documented in this encounter Visit Diagnoses Diagnosis Multiple thyroid nodules Nontoxic multinodular goiter documented in this encounter Care Teams Knot Saw Operator Relationship Specialty Start Date End Date Jarrell Garrison MD PCP - General Geriatric Medicine 06/21/16 08/13/18 documented as of this encounter
--- OUTSIDE RECORDS SUMMARY | 2024-05-26 13:15 | XMS_ITS | Encounter Summary ---
Author Organization [facility] Address [address] [place] [address] Care Team Providers Care Gas Appliance Servicer Name Role Phone Theresa Camargo MD Primary Care Provider Reason for Visit * Reason Comments Medication Refill Encounter Details Date Type Department Care Team (Late st Contact Info) Description 10/30/[address] [facility] Endocrinology [address] [place] [address] Yuliya Ibarra MD [address] [place] [address] Multiple thyroid nodules Social History [...] * Telephone Encounter - Bekah Wang - 11/02/2018 7:04 PM CDT galo 08/14/18 nov 11/18/18 documented in this encounter Plan of Treatment Upcoming Encounters Date Type Department Care Team (Late st Contact Info) Description 07/12/2024 2:30 PM PETROLEUM INSPECTOR SUPERVISOR Office Visit [facility] Oncology and Hematology - [place] [address] [facility] [address] [place] [address] Ovidio Nolen MD [address] [facility] [address] [place] [address] documented as of this encounter Visit Diagnoses Diagnosis Multiple thyroid nodules Nontoxic multinodular goiter documented in this encounter Care Teams Gas Appliance Servicer Relationship Specialty Start [place] [address] [facility] [address] [place] [address] PCP - General Internal Medicine 08/14/18 documented as of this encounter
--- OUTSIDE RECORDS SUMMARY | 2024-05-26 13:15 | XMS_ITS | Encounter Summary ---
Author Organization [facility] Address [address] [place] [address] Care Team Providers Care Rotary Pump Operator Name Role Phone Jarrell Garrison MD Primary Care Provider [phone] Reason for Visit * Reason Onset Date Comments Medication Refill 07/16/2018 Encounter Details Date Type Department Care Team (Late st Contact Info) Description 07/16/2018 Refill [facility] Endocrinology [address] [place] [address] Yuliya Ibarra MD [address] [place] [address] Social History Tobacco Use Types [...] * Telephone Encounter - Kati Quintero - 07/16/2018 3:36 PM QUALITY CONTROL TESTER Nov 08/14/18 galo 05/06/18 ITY CONTROL TESTER documented in this encounter Plan of Treatment Upcoming Encounters Date Type Department Care Team (Late st Contact Info) Description 07/12/2024 2:30 PM QUALITY CONTROL TESTER Office Visit [facility] Oncology and Hematology - [place] [address] [facility] [address] [place] [address] Ovidio Nolen MD [address] [facility] [address] [place] [address] documented as of this encounter Visit Diagnoses Not on filedocumented in this encounter Care Teams Rotary Pump Operator Relationship Specialty Start Date End Date Jarrell Garrison MD PCP - General Geriatric Medicine 06/21/16 08/13/18 documented as of this encounter
--- OUTSIDE RECORDS SUMMARY | 2024-05-26 13:15 | XMS_ITS | Encounter Summary ---
Author Organization [facility] Address [address] [place] [address] Care Team Providers Care Solar Installation Foreman Name Role Phone Theresa Camargo MD Primary Care Provider [phone] Reason for Visit * Reason Onset Date Comments Medication Refill 08/25/2018 Encounter Details Date Type Department Care Team (Late st Contact Info) Description 08/25/2018 Refill [facility] Endocrinology [address] [place] [address] Yuliya Ibarra MD [address] [place] [address] Multiple thyroid nodules Social History [...] * Telephone Encounter - Kati Quintero - 08/25/2018 2:35 PM CDT Nov 11/18/18 galo 08/14/18 documented in this encounter Plan of Treatment Upcoming Encounters Date Type Department Care Team (Late st Contact Info) Description 07/12/2024 2:30 PM SHEET ROLLER OPERATOR Office Visit [facility] Oncology and Hematology - [place] [address] [facility] [address] [place] [address] Ovidio Nolen MD [address] [place] [address] documented as of this encounter Visit Diagnoses Diagnosis Multiple thyroid nodules Nontoxic multinodular goiter documented in this encounter Care Teams Solar Installation Foreman Relationship Specialty Start [place] [address] [facility] [address] [place] [address] PCP - General Internal Medicine 08/14/18 documented as of this encounter
--- OUTSIDE RECORDS SUMMARY | 2024-05-26 13:15 | XMS_ITS | Encounter Summary ---
Author Organization [facility] Address [address] [place] [address] Care Team Providers Care Railway Signal Technician Name Role Phone Jarrell Garrison MD Primary Care Provider [phone] Reason for Visit * Reason Comments Medication Refill Encounter Details Date Type Department Care Team (Late st Contact Info) Description 03/01/2018 Refill [facility] Endocrinology [address] [place] [address] Yuliya Ibarra MD [address] [place] [address] Social History Tobacco Use Types [...] encounter Miscellaneous Notes * Telephone Encounter - Bernice Mccarthy - 03/02/2018 10:12 AM CDT Nov 05/06/18 [place] 01/21/18 documented in this encounter Plan of Treatment Upcoming Encounters Date Type Department Care Team (Late st Contact Info) Description 07/12/2024 2:30 PM SALES AND MARKETING ASSOCIATE Office Visit [facility] Oncology and Hematology - [place] [address] [facility] [address] [place] [address] Ovidio Nolen MD [address] [facility] [address] [place] [address] documented as of this encounter Visit Diagnoses Not on filedocumented in this encounter Care Teams Railway Signal Technician Relationship Specialty Start Date End Date Jarrell Garrison MD PCP - General Geriatric Medicine 06/21/16 08/13/18 documented as of this encounter
--- OUTSIDE RECORDS SUMMARY | 2024-05-26 13:15 | XMS_ITS | Encounter Summary ---
Author Organization [facility] Address [address] [place] [address] Care Team Providers Care Straight Knife Machine Cutter Name Role Phone Theresa Camargo MD Primary Care Provider [phone] Reason for Visit * Reason Onset Date Comments Results 08/17/2018 dm aa1c Encounter Details Date Type Department Care Team (Late st Contact Info) Description 08/17/2018 Telephone [facility] Endocrinology [address] [place] [address] Yuliya Ibarra MD [address] [place] [address] Results (dm aa1c) Social History Tobacco Use Types Packs/Day Years [...] * Telephone Encounter - Kati Quintero - 08/17/2018 2:00 PM CDT Spoke to pt and informed of results and changes. Pt voiced understanding & agreeable. Med list updated w/ changes. * Telephone Encounter - Kati Quintero - 08/17/2018 1:57 PM CDT ----- Message from Yuliya bIarra MD sent at 08/14/2018 5:01 PM CDT ----- Lower HgA1C I'm concerned about low blood sugars Let's decrease her Glimepiride dose to 1 tablet ( 1 mg) three times daily Needs to send me her blood sugars in 1-2 weeks, sooner if issues documented in this encounter Plan of Treatment Upcoming Encounters Date Type Department Care Team (Late st Contact Info) Description 07/12/2024 2:30 PM BICYCLE SUBASSEMBLER Office Visit [facility] Oncology and Hematology - [place] [address] [facility] [address] [place] [address] Ovidio Nolen MD [address] [facility] [address] [place] [address] documented as of this encounter Visit Diagnoses Not on filedocumented in this encounter Care Teams Straight Knife Machine Cutter Relationship Specialty [place] [address] [facility] [place] [facility] [address] [place] [address] PCP - General Internal Medicine 08/14/18 documented as of this encounter
--- OUTSIDE RECORDS SUMMARY | 2024-05-26 13:15 | XMS_ITS | Encounter Summary ---
Author Organization [facility] Address [address] [place] [address] Care Team Providers Care Chief Deputy Name Role Phone Jarrell Garrison MD Primary Care Provider [phone] Reason for Visit * Reason Onset Date Comments Results 01/26/2018 Encounter Details Date Type Department Care Team (Late st Contact Info) Description 01/26/[address] [facility] Endocrinology [address] [place] [address] Yuliya Ibarra MD [address] [place] [address] Results Social History Tobacco Use [...] encounter Miscellaneous Notes * Addendum Note - Isabell Cordoba - 03/09/2018 3:35 PM CDTAddended by: ISABELL CORDOBA on: 03/09/2018 03:35 PM Modules accepted: Orders * Telephone Encounter - Isabell Cordoba - 03/09/2018 3:34 PM CDT [email or web address] lab called and needed order placed for Pt to do lab recheck for 6 weeks. Orders werenot made. * Telephone Encounter - Isabell Cordoba - 01/26/2018 4:40 PM CDT Spoke to pt and informed of drs response. * Telephone Encounter - Yuliya Ibarra MD - 01/26/2018 4:13 PM CDT She can take her thyroid in pm if she wants, 2 hours after her evening meal. Ok take in am. * Telephone Encounter - Isabell Cordoba - 01/26/2018 4:05 PM CDT Spoke to pt and informed of results and instructions. Pt voiced understanding. She also takes linzess fasting in am; will that be ok to take with the thyroid med? * Telephone Encounter - Isabell Cordoba - 01/26/2018 4:02 PM CDT ----- Message from Yuliya Ibarra MD sent at 01/26/2018 12:38 PM CDT ----- Good HgA1C Normal electrolytes, kidney tests. Her thyroid level is low, based on high TSH. It's higher than before. Would start Synthroid 25 mcg daily, repeat TSH in 6 weeks. documented in this encounter Plan of Treatment Upcoming Encounters Date Type Department Care Team (Late st Contact Info) Description 07/12/2024 2:30 PM SHAPER SET UP OPERATOR Office Visit [facility] Oncology and Hematology - [place] [address] [place] [address] Ovidio Nolen MD [address] [facility] [address] [place] [address] documented as of this encounter Results * TSH (03/09/2018 3:40 PM CDT) TSH 3.71 0.27 - 4.20 uIU/mL 03/09/2018 7:08 PM CDT [facility] Blood Venipuncture / Unknown 03/09/2018 3:40 PM CDT 03/09/2018 5:00 PM CDT Yuliya Ibarra MD CHEMISTRY ORDERABLES [facility] CLIA# [id number] [address] [facility] [place] [address] documented in this encounter Visit Diagnoses Diagnosis Multiple thyroid nodules- Primary Nontoxic multinodular goiter documented in this encounter Care Teams Chief Deputy Relationship Specialty Start Date End Date Jarrell Garrison MD PCP - General Geriatric Medicine 06/21/16 08/13/18 documented as of this encounter
--- OUTSIDE RECORDS SUMMARY | 2024-05-26 13:15 | XMS_ITS | Encounter Summary ---
Author Organization [facility] Address [address] [place] [address] Care Team Providers Care Agricultural Economics Teacher Name Role Phone Jarrell Garrison MD Primary Care Provider [phone] Encounter Details Date Type Department Care Team (Late st Contact Info) Description 03/09/2018 Orders Only [facility] Admitting [address] [place] [address] [place] [address] [place] [address] Social History Tobacco Use Types Packs/Day Years [...] st Contact Info) Description 07/12/2024 2:30 PM CV TECH Office Visit [facility] Oncology and Hematology - [place] [address] [facility] [address] [place] [address] Ovidio Nolen MD [address] [facility] [address] [place] [address] documented as of this encounter Visit Diagnoses Not on filedocumented in this encounter Care Teams Agricultural Economics Teacher Relationship Specialty Start Date End Date Jarrell Garrison MD PCP - General Geriatric Medicine 06/21/16 08/13/18 documented as of this encounter
--- OUTSIDE RECORDS SUMMARY | 2024-05-26 13:15 | XMS_ITS | Encounter Summary ---
Author Organization [facility] Address [address] [place] [address] Care Team Providers Care Precision Assembly Inspector Name Role Phone Theresa Camargo MD Primary Care Provider [phone] Reason for Visit * Reason Onset Date Comments Erroneous encounter-disregard 01/14/2019 Encounter Details Date Type Department Care Team (Late Contact Info) Description 01/14/2019 Telephone [facility] Endocrinology [address] [place] [address] Yuliya Ibarra MD [address] [place] [address] Erroneous encounter-disregard Social History Tobacco Use Types Packs/Day Years [...] (Late Contact Info) Description 07/12/2024 2:30 PM DOOR FURRING INSTALLER Office Visit [facility] Oncology and Hematology - [place] [address] [place] [address] Ovidio Nolen MD [address] [facility] [address] [place] [address] documented as of this encounter Visit Diagnoses Not on filedocumented in this encounter Care Teams Precision Assembly Inspector Relationship Specialty Start [place] [address] [facility] [address] [place] [address] PCP - General Internal Medicine 08/14/18 documented as of this encounter
--- OUTSIDE RECORDS SUMMARY | 2024-05-26 13:15 | XMS_ITS | Encounter Summary ---
Author Organization [facility] Address [address] [place] [address] Care Team Providers Care Consulting Technical Manager Name Role Phone Jarrell Grarison MD Primary Care Provider [phone] Encounter Details Date Type Department Care Team (Late st Contact Info) Description 03/09/2018 Orders Only [facility] Admitting [address] [place] [address] Teofilo Singh MD [address] [facility] [address] [place] [address] Social History Tobacco Use Types Packs/Day Years [...] Contact Info) Description 07/12/2024 2:30 PM MANAGER SOCIAL MEDIA Office Visit [facility] Oncology and Hematology - [place] [address] [place] [address] Ovidio Nolen MD [address] [facility] [address] [place] [address] documented as of this encounter Visit Diagnoses Not on filedocumented in this encounter Care Teams Consulting Technical Manager Relationship Specialty Start Date End Date Jarrell Garrison MD PCP - General Geriatric Medicine 06/21/16 08/13/18 documented as of this encounter
--- OUTSIDE RECORDS SUMMARY | 2024-05-26 13:15 | XMS_ITS | Encounter Summary ---
Author Organization [facility] Address [address] [place] [address] Care Team Providers Care Billing Control Clerk Name Role Phone Theresa Camargo MD Primary Care Provider [phone] Reason for Visit * Reason Comments Medication Refill Encounter Details Date Type Department Care Team (Late st Contact Info) Description 10/04/2018 Refill [facility] Endocrinology [address] [place] [address] Yuliya Ibarra MD [address] [place] [address] Social History Tobacco Use [...] * Telephone Encounter - Nivia Shea - 10/06/2018 4:25 PM CDT galo 08/14/18 nov 11/18/18 documented in this encounter Plan of Treatment Upcoming Encounters Date Type Department Care Team (Late st Contact Info) Description 07/12/2024 2:30 PM EYEWEAR CONSULTANT Office Visit [facility] Oncology and Hematology - [place] [address] [place] [address] Ovidio Nolen MD [address] [facility] [address] [place] [address] documented as of this encounter Visit Diagnoses Not on filedocumented in this encounter Care Teams Billing Control Clerk Relationship Specialty Start [place] [address] [facility] [address] [place] [address] PCP - General Internal Medicine 08/14/18 documented as of this encounter
--- OUTSIDE RECORDS SUMMARY | 2024-05-26 13:15 | XMS_ITS | Encounter Summary ---
Author Organization [facility] Address [address] [place] [address] Care Team Providers Care Cotton Bag Sewer Name Role Phone Theresa Camargo MD Primary Care Provider [phone] Reason for Visit * Reason Comments Diabetes Encounter Details Date Type Department Care Team (Latest Contact Info) Description 01/20/2019 11:15 AM CDT Office Visit [facility] Endocrinology [address] [place] [address] Yuliya Ibarra MD [address] [place] [address] Type 2 diabetes mellitus without complication, without long-term current use of insulin (Primary Dx); Primary hypothyroidism Social History Tobacco Use Types Packs/Day [...] Reading Time Taken Comments Blood Pressure 124/72 01/20/2019 11:14 AM CDT Pulse 63 01/20/2019 11:14 AM CDT Temperature - - Respiratory Rate - - Oxygen Saturation - - Inhaled Oxygen Concentration - - Weight 87.1 kg (192 lb) 01/20/2019 11:14 AM CDT Height 165.1 cm (5' 5 ) 01/20/2019 11:14 AM CDT Body Mass Index 31.95 01/20/2019 11:14 AM CDT documented in this encounter Progress Notes * Yuliya Ibarra MD - 01/20/2019 11:27 AM CDT [facility] Endocrinology Yuliya Ibarra M.D. PCP: Dr. Julian Payne Hepatology Physician: Dr. Alexandre Reese Neurologist: Dr. Nelson Ross Wine Cellar Worker: Dr. Krishan Moran Vascular Surgeon: Dr. Elle Landaverde Parachute Line Tier: Dr. Laz Valencia Employee Services Manager: Dr. Phuong Callejas Reason for visit: DM follow-up. Subjective: Perla Leon is a 78 y.o. female [...] Jardiance 10 mg daily. Reports fair glucose control, but she is not checking her sugars as regularly as before. She is staying well hydrated. Glucometer: has one. Last eye exam: 3 months ago - has glaucoma. Previous meds: Levemir 6 units qhs, Could not tolerate Metformin secondary to diarrhea. Goes to a day camp counselor. Patient was found to have hypercalcemia, parathyroid [...] was normal. Post hospitalization for low potassium in the past. She is using a walker and she [...] Outpatient Medications Medication Sig Dispense Refill ??? levothyroxine 25 mcg tablet TAKE 1 TABLET DAILY IN THE MORNING BEFORE A MEAL. 90 Tablet 1 ??? glimepiride (AMARYL) 1 mg tablet takes 1 tablet tid. 540 Tablet 1 ??? blood sugar diagnostic (FREESTYLE LITE STRIPS) Strip TEST BLOOD SUGARS TWICE A DAY DX E11.9.. 200 Strip 1 ??? sitaGLIPtin (JANUVIA) 100 mg Tablet TAKE 1 TABLET DAILY WITH BREAKFAST. 30 Tablet 0 ??? empagliflozin (JARDIANCE) 10 mg tablet Take 1 Tablet (10 mg) by mouth daily regional construction manager. 90 Tablet 1 ??? albuterol HFA 90 [...] level: Not on file Occupational History Employer: [employer] Social Needs ??? Financial resource strain: Not [...] file Gets together: Not on file Attends gnosticism service: Not on file Active member of [...] ??? Cancer skin ??? CVD (cerebrovascular disease) [id number] TIA x2 ??? Diabetes no medication at [...] disorder 2000 after stroke-none since ??? Shingles [phone] x3 ??? Spondylolisthesis l4-l5 Patient Active Problem [...] 2002 dr. Valencia ??? [facility] ??? HX HYSTERECTOMY 1985 ??? HX KNEE ARTHROSCOPY [id number] right knee ??? HX SURGICAL OTHER 1975 ulcer removed from vocal cord ??? HX SURGICAL OTHER 1985 surgery for broken nose ??? HX SURGICAL OTHER 09/10/2010 ANTERIOR POSTERIOR REPAIR performed by FRANKLYN PACK at [facility] ??? CT ANTERIOR COLPORRAPHY RPR CYSTOCELE W/CYSTO 09/10/2010 CYSTOCELE REPAIR performed by FRANKLYN PACK at [facility] ??? CT POST COLPORRHAPHY,RECTUM/VAGINA 09/10/2010 RECTOCELE REPAIR performed by FRANKLYN PACK at [facility] MAIN ??? CT REPAIR ENTEROCELE,VAG APPRCH 09/10/2010 ENTEROCELE REPAIR VAGINAL APPROACH performed by FRANKLYN PACK at [facility] MAIN ??? CT REPAIR OF PERINEUM,NON OBSTETRICAL 09/10/2010 PERINEOPLASTY performed by FRANKLYN PACK at [facility]IN ??? CT REPR VAGINAL PROLAPSE,SACROSP LIG 09/10/2010 SACROSPINOUS LIGAMENT FIXATION performed by FRANKLYN PACK at [facility] Physical Findings: Wt Readings from Last 3 Encounters: 01/20/19 87.1 kg (192 lb) 08/14/18 85.7 kg (189 lb) 05/06/18 89.4 kg (197 lb) BP 124/72 Pulse 63 Ht 5' 5 (1.651 m) Wt 87.1 kg (192 lb) SpO2 (!) 88% BMI 31.95 kg/m?? Good blood pressure for her. Physical [...] 7.0% Lab Results Component Value Date/Time HGBA1C 5.3 08/14/2018 12:25 PM Component Latest Ref Rng & Units [...] Creatinine 0.81 Calcium 10.3 TSH 4.45 Reviewed [facility] lab result done on 04/19/14 CMP [...] 31 Lab Results Component Value Date/Time SODIUM 142 08/14/2018 12:25 PM SODIUM 144 05/06/2018 11:57 AM SODIUM 140 01/23/2018 01:48 PM POTASSIUM 4.2 08/14/2018 12:25 PM POTASSIUM 4.4 05/06/2018 11:57 AM POTASSIUM 4.3 01/23/2018 01:48 PM CHLORIDE 105 08/14/2018 12:25 PM CHLORIDE 106 05/06/2018 11:57 AM CHLORIDE 102 01/23/2018 01:48 PM CO2 28 08/14/2018 12:25 PM CO2 27 05/06/2018 11:57 AM CO2 24 01/23/2018 01:48 PM BUN 16 08/14/2018 12:25 PM BUN 17 05/06/2018 11:57 AM BUN 14 01/23/2018 01:48 PM GLUCOSE 116 (H) 08/14/2018 12:25 PM GLUCOSE 114 (H) 05/06/2018 11:57 AM GLUCOSE 100 (H) 01/23/2018 01:48 PM Lab Results Component Value Date/Time ALBUMIN 3.9 01/23/2018 01:48 PM ALBUMIN 4.2 05/02/2017 11:47 AM ALBUMIN 3.8 12/12/2016 04:14 AM CREATININE 0.82 08/14/2018 12:25 PM CREATININE 0.80 05/06/2018 11:57 AM CREATININE 0.79 01/23/2018 01:48 PM Lab Results Component Value Date/Time TSH 3.71 [...] Status: Final result ?Visible to patient: Yes (nVoqhart) Component FINAL DIAGNOSIS Thyroid, left, FNA, cytology: [...] with her. Improved blood glucose. Continue current meds for now, was able to stop insulin. Repeat Hga1C, BMP and likely stop Glimepiride based on her results. Needs to let me know if problems. Diabetes plan reviewed with patient. 2. H/o Hypercalcemia - Most likely primary hyperparathyroidism. H/o high PTH Mild osteopenia per DEXA scan. Conservative management. Needs to avoid falls. 3. Hypokalemia - takes Lasix at this time, KCL 40 mEq daily, but needs to be monitored by a physician prescribing her diuretics. 4. Thyroid nodules, primary hypothyroidism. Post [...] Contact Info) Description 07/12/2024 2:30 PM MANAGER HOME HEALTHCARE Office Visit [facility] Oncology and Hematology - [place] [address] [place] [address] Ovidio Noeln MD [address] [facility] [address] [place] [address] documented as of this encounter Results * (ABNORMAL) BASIC METABOLIC PANEL (01/20/2019 11:59 AM CDT) Pathologist [facility] SODIUM 141 136 - 145 mmol/L 01/20/2019 12:50 PM [employer] [facility] - [facility] POTASSIUM 3.1(L) 3.5 - 5.0 mmol/L 01/20/2019 12:50 PM [employer] [facility] - . [facility] CHLORIDE 98 98 - 107 mmol/L 01/20/2019 12:50 PM [employer] [facility] - . [facility] CO2 32(H) 22 - 29 mmol/L 01/20/2019 12:50 PM [employer] [facility] - [facility] CALCIUM 10.7(H) 8.6 - 10.2 mg/dL 01/20/2019 12:50 PM [employer] [facility] - . [facility] BUN 22 8 - 23 mg/dL 01/20/2019 12:50 PM [employer] [facility] - [facility] CREATININE 0.86 0.51 - 0.95 mg/dL 01/20/2019 12:50 PM [employer] [facility] - [facility] Comment: The GFR result is not clinically significant on patients <18 or >70 years of age. GLUCOSE 99 74 - 99 mg/dL 01/20/2019 12:50 PM [employer] [facility] - [facility] GFR >60 mL/min/1.7 3 sq meter 01/20/2019 12:50 PM [employer] [facility] Comment: eGFR has not been validated [...] mL/min/1.7 3 sq meter 01/20/2019 12:50 PM [employer] [facility] ANION GAP 11 8 - 16 mmol/L 01/20/2019 12:50 PM [employer] [facility] - [facility] Blood Venipuncture / Unknown 01/20/2019 11:59 AM CDT 01/20/2019 12:08 PM CDT Yuliya Ibarra MD CHEMISTRY ORDERABLES Performing Organization Address City/[facility]/ZIP Co de Phone Number [facility]# [id number] [address] [place] [address] * TSH (01/20/2019 11:59 AM CDT) TSH 3.35 0.27 - 4.20 uIU/mL 01/20/2019 12:57 PM CDT [facility] Blood Venipuncture / Unknown 01/20/2019 11:59 AM CDT 01/20/2019 12:08 PM CDT Yuliya Ibarra MD CHEMISTRY ORDERABLES Performing Organization Address [facility] Co de Phone Number [facility] [employer] [facility]# [id number] [address] [place] [address] * (ABNORMAL) HEMOGLOBIN A1C (01/20/2019 11:59 AM CDT) HEMOGLOBIN A1C 5.9(H) <5.7 % 01/20/2019 2:[address] [facility] EST. AVG GLUCOSE, A1C 123 mg/dL 01/20/2019 2:[address] [facility] Blood Venipuncture / Unknown 01/20/2019 11:59 AM CDT 01/20/2019 12:08 PM CDT Narrative [facility]OR[facility] SERVICES [facility] - 01/20/2019 2:52 PM CDT HGB A1C INTERPRETATION NORMAL: ? <5.7% PRE-DIABETES: 5.7 - 6.4% DIABETES: ? 6.5% OR GREATER Yuliya Ibarra MD CHEMISTRY ORDERABLES Performing Organization Address City/[facility]/ZIP Co de Phone Number [facility] [employer] [facility]# [id number] [address] [place] [address] documented in this encounter Visit Diagnoses Diagnosis Type 2 diabetes mellitus without complication, without long-term current use of insulin- Primary Primary hypothyroidism Unspecified hypothyroidism documented in this encounter Care Teams Cotton Bag Sewer Relationship Specialty [place] [id number] [address] PCP - General Internal Medicine 08/14/18 documented as of this encounter
--- OUTSIDE RECORDS SUMMARY | 2024-05-26 13:15 | XMS_ITS | Encounter Summary ---
Author Organization [facility] Address [address] [place] [address] Care Team Providers Care Drilling Fluids Specialist Name Role Phone Theresa Camargo MD Primary Care Provider [phone] Reason for Referral * Radiology Services (Routine) - Closed Specialty Diagnoses / Procedures Referred By Alejandrina t Referred To Contact Ultrasound Diagnoses Multiple thyroid nodules Procedures US HEAD NECK TISSUES Yuliya Ibarra MD [address] [place] [address] [facility] Ultrasound [address] [place] [address] Referral ID Status Reason Start Date Expiration Date V isits Requested Visits Authorized [id number] Closed L CTS 08/14/2018 09/14/2019 1 1 Reason for Visit * Reason Comments Follow Up 3 mo dm f/u Encounter Details Date Type Department Care Team (Late st Contact Info) Description 08/14/2018 11:45 AM CDT Office Visit [facility] Endocrinology [address] [place] [address] Yuliya Ibarra MD [address] [place] [address] Type 2 diabetes mellitus without complication, without long-term current use of insulin (Primary Dx); Multiple thyroid nodules; Primary hypothyroidism; Obesity (BMI 30.0-34.9) Social History Tobacco Use [...] Sign Reading Time Taken Comments Blood Pressure 137/64 08/14/2018 11:38 AM CDT Pulse 83 08/14/2018 11:38 AM CDT Temperature - - Respiratory Rate - - Oxygen Saturation - - Inhaled Oxygen Concentration - - Weight 85.7 kg (189 lb) 08/14/2018 11:38 AM CDT Height 165.1 cm (5' 5 ) 08/14/2018 11:38 AM CDT Body Mass Index 31.45 08/14/2018 11:38 AM CDT documented in this encounter Progress Notes * Yuliya Ibarra MD - 08/14/2018 11:53 AM CDT [facility] Endocrinology Yuliya Ibarra M.D. PCP: Dr. Julian Payne Medical Office Rep: Dr. Alexandre Reese Neurologist: Dr. Nelson Ross Bank Secrecy Act Officer: Dr. Krishan Moran Vascular Surgeon: Dr. Elle Landaverde Mine Geologist: Dr. Laz Valencia Delivery Mgr: Dr. Phuong Callejas Reason for visit: DM [...] thyroid nodule, post FNA w/ benign results. DM regimen: currently on Glimepiride 1.5 mg in am, 2 mg with lunch and 2.5 mg with dinner, Januvia 100 mg daily, Jardiance 10 mg daily. Reports fair glucose control, denies hypoglycemia. She is staying well hydrated. Checks her blood sugars 2 times daily Glucometer: has one. Last eye exam: 3 months ago - has glaucoma. Previous meds: Levemir 6 units qhs, Could not tolerate Metformin secondary to diarrhea. Goes to a steel unloader. Patient was found to have hypercalcemia, parathyroid [...] walker and she is experiencing frequent falls. Has been on antibiotics for pneumonia. Review of Systems: Endo/Gen: She: denies polyuria/polydipsia/nocturia, [...] Outpatient Prescriptions Medication Sig Dispense Refill ??? empagliflozin (JARDIANCE) 10 mg tablet Take 1 Tablet (10 mg) by mouth daily paperboard box maker. 90 Tablet 0 ??? levothyroxine 25 mcg tablet TAKE 1 TABLET BY MOUTH EVERY DAY IN THE MORNING BEFORE MEALS. 90 Tablet 1 ??? glimepiride (AMARYL) 1 mg tablet TAKE [...] (FREESTYLE LANCETS) 28 gauge 100 Each by [facility].(Non-Drug; Combo Route) route daily. Dx code [...] Years of education: N/A Occupational History ??? [employer] Social History Main Topics ??? Smoking status: [...] ??? Cancer skin ??? CVD (cerebrovascular disease) [id number] TIA x2 ??? Diabetes no medication at [...] disorder 2001 after stroke-none since ??? Shingles [phone] x3 ??? Spondylolisthesis l4-l5 Patient Active Problem [...] 2002 dr. Valencia ??? HX HERNIA REPAIR 2009-[facility] ??? HX HYSTERECTOMY 1985 ??? HX KNEE ARTHROSCOPY [id number] right knee ??? HX SURGICAL OTHER 1975 ulcer removed from vocal cord ??? HX SURGICAL OTHER 1985 surgery for broken nose ??? HX SURGICAL OTHER 09/10/2010 ANTERIOR POSTERIOR REPAIR performed by FRANKLYN PACK at [facility] ??? [place] ANTERIOR COLPORRAPHY RPR CYSTOCELE W/CYSTO 09/10/2010 CYSTOCELE REPAIR performed by FRANKLYN PACK at [facility] ??? [place] POST COLPORRHAPHY,RECTUM/VAGINA 09/10/2010 RECTOCELE REPAIR performed by FRANKLYN PACK at [facility] ??? [place] REPAIR ENTEROCELE,VAG APPRCH 09/10/2010 ENTEROCELE REPAIR VAGINAL APPROACH performed by FRANKLYN PACK at [facility] ??? [place] REPAIR OF PERINEUM,NON OBSTETRICAL 09/10/2010 PERINEOPLASTY performed by FRANKLYN PACK at [facility] ??? [place] REPR VAGINAL PROLAPSE,SACROSP LIG 09/10/2010 SACROSPINOUS LIGAMENT FIXATION performed by FRANKLYN PACK at [facility] OR [facility] Physical Findings: Wt Readings from Last 3 Encounters: 08/14/18 85.7 kg (189 lb) 05/06/18 89.4 kg (197 lb) 01/23/18 87.5 kg (193 lb) BP 137/64 Pulse 83 Ht 5' 5 (1.651 m) Wt 85.7 kg (189 lb) BMI 31.45 kg/m?? Good blood pressure for her. Physical [...] 7.0% Lab Results Component Value Date/Time HGBA1C 6.3 (H) 05/06/2018 11:57 AM Component Latest Ref Rng & Units [...] Creatinine 0.81 Calcium 10.3 TSH 4.45 Reviewed [facility] lab result done on 04/19/14 CMP - WNL - creatinine 0.67, GFR 86 Total cholesterol 106 Triglycerides 153 HDL - 35 LDL 40 HgA1C - 7.6% HgA1C - 7.1% - November 03. 11/21/13 Bun /creatinine - 23/0.88 Transaminases - wnl Calcium 11.1 GFR - 63 HgA1C - 8.8% Total cholesterol - 123 Triglycerides - 288 HDL - 34 LDL 31 Lab Results Component Value Date/Time SODIUM 144 05/06/2018 11:57 AM SODIUM 140 01/23/2018 01:48 PM SODIUM 142 05/02/2017 11:47 AM POTASSIUM 4.4 05/06/2018 11:57 AM POTASSIUM 4.3 01/23/2018 01:48 PM POTASSIUM 3.0 (L) 05/02/2017 11:47 AM CHLORIDE 106 05/06/2018 11:57 AM CHLORIDE 102 01/23/2018 01:48 PM CHLORIDE 101 05/02/2017 11:47 AM CO2 27 05/06/2018 11:57 AM CO2 24 01/23/2018 01:48 PM CO2 27 05/02/2017 11:47 AM BUN 17 05/06/2018 11:57 AM BUN 14 01/23/2018 01:48 PM BUN 17 05/02/2017 11:47 AM GLUCOSE 114 (H) 05/06/2018 11:57 AM GLUCOSE 100 (H) 01/23/2018 01:48 PM GLUCOSE 115 (H) 05/02/2017 11:47 AM Lab Results Component Value Date/Time ALBUMIN 3.9 01/23/2018 01:48 PM ALBUMIN 4.2 05/02/2017 11:47 AM ALBUMIN 3.8 12/12/2016 04:14 AM CREATININE 0.80 05/06/2018 11:57 AM CREATININE 0.79 01/23/2018 01:48 PM CREATININE 0.82 05/02/2017 11:47 AM Lab Results Component Value Date/Time TSH [...] plan reviewed with patient. Will check HgA1C, BMP 2. H/o Hypercalcemia - Most likely primary hyperparathyroidism. H/o high PTH Mild osteopenia per DEXA scan. Conservative management. Needs to avoid falls. 3. Hypokalemia - takes Lasix at this time, KCL 40 mEq daily, but needs to be monitored by a physician prescribing her diuretics. Her last potassium level was normal. 4. Thyroid nodules, primary hypothyroidism. Post left suspicious thyroid nodule FNA - benign results. Repeat thyroid ultrasound in October. Continue current thyroid dose - Levothyroxine 25 mcg daily. She is euthyroid. Patient is to call if experiences increase in her neck size/dysphagia/dyspnea/voice changes/tremors/palpitations or other problems arise. Follow-up in 3 months. >15 min of this 25 min visit was discussion/counseling. Yuliya Ibarra MD documented in this encounter Plan of Treatment Upcoming Encounters Date Type Department Care Team (Late st Contact Info) Description 07/12/2024 2:30 PM COUNTER HAND Office Visit [facility] Oncology and Hematology - [place] [address] [facility] [address] [place] [address] Oivdio Nolen MD [address] [facility] [address] [place] [address] documented as of this encounter Results * US HEAD NECK TISSUES (09/25/2018 2:47 PM CDT) Anatomical Region Laterality Modality Head Ultrasound 09/25/2018 2:48 PM CDT Impressions 09/25/2018 3:24 PM CDT IMPRESSION: Interval increase in size of previously biopsied highly suspicious (TR 5) nodule in the left lower pole. DICTATION LOCATION: Location 1 - [facility] Narrative 09/25/2018 3:24 PM CDT US HEAD NECK [...] the left lower pole. DICTATION LOCATION: Location 1 - [facility] Yuliya Ibarra MD US ORDERABLES * (ABNORMAL) BASIC METABOLIC PANEL (08/14/2018 12:25 PM CDT) SODIUM 142 136 - 145 mmol/L 08/14/2018 1:34 PM CDT [facility] - [facility] POTASSIUM 4.2 3.5 - 5.0 mmol/L 08/14/2018 1:34 PM CDT [facility] - [facility] CHLORIDE 105 98 - 107 mmol/L 08/14/2018 1:34 PM CDT [facility] - [facility] CO2 28 22 - 29 mmol/L 08/14/2018 1:34 PM CDT [facility] - [facility] CALCIUM 10.2 8.6 - 10.2 mg/dL 08/14/2018 1:34 PM CDT [facility] - . [facility] BUN 16 8 - 23 mg/dL 08/14/2018 1:34 PM CDT [facility] - [facility] CREATININE 0.82 0.51 - 0.95 mg/dL 08/14/2018 1:34 PM CDT [facility] - [facility] Comment: The GFR result is not clinically significant on patients <18 or >70 years of age. GLUCOSE 116(H) 74 - 99 mg/dL 08/14/2018 1:34 PM CDT [facility] [employer] [facility] GFR >60 mL/min/1.7 3 sq meter 08/14/2018 1:34 PM CDT [facility] [employer] [facility] Comment: eGFR has not been validated for [...] 3 sq meter 08/14/2018 1:34 PM CDT [facility] ANION GAP 9 8 - 16 mmol/L 08/14/2018 1:34 PM CDT [facility] [employer] [facility] Blood Venipuncture / Unknown 08/14/2018 12:25 PM CDT 08/14/2018 12:51 PM CDT Yuliya Ibarra MD CHEMISTRY ORDERABLES [facility] [employer] [facility]# [id number] [address] [facility] [place] [address] * HEMOGLOBIN A1C (08/14/2018 12:25 PM CDT) HEMOGLOBIN A1C 5.3 <5.7 % 08/14/2018 4:42 PM CDT [facility] EST. AVG GLUCOSE, A1C 105 mg/dL 08/14/2018 4:42 PM CDT [facility] [employer] [facility] Blood Venipuncture / Unknown 08/14/2018 12:25 PM CDT 08/14/2018 12:51 PM CDT Narrative [facility] - 08/14/2018 4:42 PM CDT HGB A1C INTERPRETATION NORMAL: ? <5.7% PRE-DIABETES: 5.7 - 6.4% DIABETES: ? 6.5% OR GREATER Yuliya Ibarra MD CHEMISTRY ORDERABLES [facility]# [id number] [address] [facility] [place] [address] documented in this encounter Visit Diagnoses Diagnosis Type 2 diabetes mellitus without complication, without long-term current use of insulin- Primary Multiple thyroid nodules Nontoxic multinodular goiter Primary hypothyroidism Unspecified hypothyroidism Obesity (BMI 30.0-34.9) Obesity, unspecified Multiple thyroid nodules Nontoxic multinodular goiter documented in this encounter Care Teams Drilling Fluids Specialist Relationship Specialty Start [place] [id number] [id number] PCP - General Internal Medicine 08/14/18 documented as of this encounter
--- OUTSIDE RECORDS SUMMARY | 2024-05-26 13:15 | XMS_ITS | Encounter Summary ---
Author Organization [facility] Address [address] [place] [address] Care Team Providers Care Suggestion Clerk Name Role Phone Jarrell Garrison MD Primary Care Provider [phone] Reason for Visit * Reason Onset Date Comments Medication Refill 02/05/2018 Encounter Details Date Type Department Care Team (Late st Contact Info) Description 02/05/2018 Refill [facility] Endocrinology [address] [place] [address] Yuliya Ibarra MD [address] [place] [address] Social History Tobacco Use Types [...] * Telephone Encounter - Bekah Wang - 02/05/2018 6:08 PM CDT JOSE G 01/23/18 , NOV 05/06/18 documented in this encounter Plan of Treatment Upcoming Encounters Date Type Department Care Team (Late st Contact Info) Description 07/12/2024 2:30 PM PRUNE WASHER Office Visit [facility] Oncology and Hematology - [place] [address] [facility] [address] [place] [address] Ovidio Nolen MD [address] [facility] [address] [place] [address] documented as of this encounter Visit Diagnoses Not on filedocumented in this encounter Care Teams Suggestion Clerk Relationship Specialty Start Date End Date Jarrell Garrison MD PCP - General Geriatric Medicine 06/21/16 08/13/18 documented as of this encounter
--- OUTSIDE RECORDS SUMMARY | 2024-05-26 13:16 | XMS_ITS | Encounter Summary ---
Author Organization [facility] Address [address] [place] [address] Care Team Providers Care Detailer Furniture Name Role Phone Jarrell Garrison MD Primary Care Provider [phone] Reason for Visit * Reason Comments Medication Refill Encounter Details Date Type Department Care Team (Late st Contact Info) Description 12/26/2016 Refill [facility] Endocrinology [address] [place] [address] Yuliya Ibarra MD [address] [place] [address] Social History Tobacco Use Types [...] encounter Miscellaneous Notes * Telephone Encounter - Cassandra Sears - 12/27/2016 3:58 PM CDT Nov 01/17/17; galo 10/04/16 documented in this encounter Plan of Treatment Upcoming Encounters Date Type Department Care Team (Late st Contact Info) Description 07/12/2024 2:30 PM WILDLIFE MANAGEMENT PROFESSOR Office Visit [facility] Oncology and Hematology - [place] [address] [facility] [address] [place] [address] Ovidio Nolen MD [address] [facility] [address] [place] [address] documented as of this encounter Visit Diagnoses Not on filedocumented in this encounter Care Teams Detailer Furniture Relationship Specialty Start Date End Date Jarrell Garrison MD PCP - General Geriatric Medicine 06/21/16 08/13/18 documented as of this encounter
--- OUTSIDE RECORDS SUMMARY | 2024-05-26 13:16 | XMS_ITS | Encounter Summary ---
Author Organization [facility] Address [address] [place] [address] Care Team Providers Care Fiber Worker Name Role Phone Jarrell Garrison MD Primary Care Provider [phone] Reason for Visit * Reason Onset Date Comments Question 08/19/2016 Encounter Details Date Type Department Care Team (Late st Contact Info) Description 08/19/2016 Telephone [facility] Endocrinology [address] [place] [address] Yuliya Ibarra MD [address] [place] [address] Question Social History Tobacco Use [...] encounter Miscellaneous Notes * Telephone Encounter - Bkeah Wang - 08/19/2016 2:40 PM CDT Informed pt Per note below , [facility] lab order pended for signature * Telephone Encounter - Yuliya Ibarra MD - 08/19/2016 11:15 AM CDT It's not common to have abdominal pain with this medication, but anything is possible. There is a rare side effect of pancreatitis, but pain is typically pretty severe - ok to check her lipase level. * Telephone Encounter - Bekah Wang - 08/19/2016 10:59 AM CDT Pt called , c/o since may of epigastic pain , has been evaluated by pcp , ct scan - neg Now wondering if this could be related to her januvia documented in this encounter Plan of Treatment Upcoming Encounters Date Type Department Care Team (Late st Contact Info) Description 07/12/2024 2:30 PM TAR CHASER Office Visit [facility] Oncology and Hematology - [place] [address] [facility] [address] [place] [address] Ovidio Nolen MD [address] [facility] [address] [place] [address] documented as of this encounter Procedures Procedure Name Priority Date/Time Associated Diagnosis Comments HEMOGLOBIN A1C Routine 09/30/2016 7:21 AM CDT LIPASE Routine 09/06/2016 10:29 AM CDT Epigastric abdominal pain documented in this encounter Results * (ABNORMAL) HEMOGLOBIN A1C (09/30/2016 7:21 AM CDT) HEMOGLOBIN A1C 6.3(H) <5.7 % of total Hgb [facility] Comment: For someone without known diabetes, a hemoglobin A1c value between 5.7% and 6.4% is consistent with prediabetes and should be confirmed with a follow-up test. For someone with known diabetes, a value <7% indicates that their diabetes is well controlled. A1c targets should be individualized based on duration of diabetes, age, comorbid conditions, and other considerations. This assay result is consistent with an increased risk of diabetes. Currently, no consensus exists regarding use of hemoglobin A1c for diagnosis of diabetes for children. Test Performed at: [facility] [address] [place], [place] ??[phone] ELIE HAMLIN DO,MPH 09/30/2016 7:21 AM CDT Yuliya Ibarra MD CHEMISTRY ORDERABLES Performing Organization Address City/[facility] Co de Phone Number [facility] [address] [place] [address] * LIPASE (09/06/2016 10:29 AM CDT) LIPASE 27 7 - 60 U/L [facility] Comment: Test Performed at: [facility] [address] [place], [place] ??[phone] ELIE HAMLIN DO,MPH Blood 09/06/2016 10:2 9 AM CDT Yuliya Ibarra MD CHEMISTRY ORDERABLES Performing Organization Address [facility] Co de Phone Number [facility] [address] [place] [address] documented in this encounter Visit Diagnoses Diagnosis Epigastric abdominal pain- Primary Abdominal pain, epigastric documented in this encounter Care Teams Fiber Worker Relationship Specialty Start Date End Date Jarrell Garrison MD PCP - General Geriatric Medicine 06/21/16 08/13/18 documented as of this encounter
--- OUTSIDE RECORDS SUMMARY | 2024-05-26 13:16 | XMS_ITS | Encounter Summary ---
Author Organization [facility] Address [address] [place] [address] Care Team Providers Care Synthetic Cloth Binding Cutter Name Role Phone Julian Payne MD Primary Care Provider [phone] Reason for Visit * Reason Comments Medication Refill Encounter Details Date Type Department Care Team (Late st Contact Info) Description 06/07/2016 Refill [facility] Endocrinology [address] [place] [address] Yuliya Ibarra MD [address] [place] [address] Social History Tobacco Use Types [...] encounter Miscellaneous Notes * Telephone Encounter - Marybeth Soto - 06/07/2016 3:01 PM CST JOSE G 01/19/16, NOV 06/21/16 BURSEMENT ANALYST documented in this encounter Plan of Treatment Upcoming Encounters Date Type Department Care Team (Late Contact Info) Description 07/12/2024 2:30 PM REIMBURSEMENT ANALYST Office Visit [facility] Oncology and Hematology - [place] [address] [facility] [address] [place] [address] Ovidio Nolen MD [address] [facility] [address] [place] [address] documented as of this encounter Visit Diagnoses Not on filedocumented in this encounter Care Teams Synthetic Cloth Binding Cutter Relationship Specialty Start Date End Date Julian Payne MD PCP - General Internal Medicine 06/23/15 06/20/16 documented as of this encounter
--- OUTSIDE RECORDS SUMMARY | 2024-05-26 13:16 | XMS_ITS | Encounter Summary ---
Author Organization [facility] Address [address] [place] [address] Care Team Providers Care Food Safety Scientist Name Role Phone Julian Payne MD Primary Care Provider [phone] Encounter Details Date Type Department Care Team (Late Contact Info) Description 10/18/2015 Orders Only [facility] Endocrinology [address] [place] [address] Yuliya Ibarra MD [address] [place] [address] Social History Tobacco Use Types [...] st Contact Info) Description 07/12/2024 2:30 PM STAPLE FIBER WASHER Office Visit [facility] Oncology and Hematology - [place] [address] [facility] [address] [place] [address] Ovidio Nolen MD [address] [facility] [address] [place] [address] documented as of this encounter Procedures Procedure Name Priority Date/Time Associated Diagnosis Comments HEMOGLOBIN A1C Routine 10/18/2015 documented in this encounter Results * HEMOGLOBIN A1C (10/18/2015) Blood specimen (specimen) Yuliya Ibarra MD CHEMISTRY ORDERABLES Performing Organization Address [facility] Co de Phone Number [facility]# [id number] [address] [place] [address] documented in this encounter Visit Diagnoses Not on filedocumented in this encounter Care Teams Food Safety Scientist Relationship Specialty Start Date End Date Julian Payne MD PCP - General Internal Medicine 06/23/15 06/20/16 documented as of this encounter
--- OUTSIDE RECORDS SUMMARY | 2024-05-26 13:16 | XMS_ITS | Encounter Summary ---
Author Organization [facility] Address [address] [place] [address] Care Team Providers Care Literacy Teacher Name Role Phone Julian Payne MD Primary Care Provider [phone] Reason for Visit * Reason Comments Medication Refill Encounter Details Date Type Department Care Team (Late st Contact Info) Description 12/13/2015 Refill [facility] Endocrinology [address] [place] [address] Yuliya Ibarra MD [address] [place] [address] Social History Tobacco Use Types [...] * Telephone Encounter - Bekah Wang - 12/15/2015 4:20 PM CDT galo 09/22/15 , nov 01/19/16 documented in this encounter Plan of Treatment Upcoming Encounters Date Type Department Care Team (Late st Contact Info) Description 07/12/2024 2:30 PM SPORTS MEDICINE MASSEUR Office Visit [facility] Oncology and Hematology - [place] [address] [facility] [address] [place] [address] Ovidio Nolen MD [address] [facility] [address] [place] [address] documented as of this encounter Visit Diagnoses Not on filedocumented in this encounter Care Teams Literacy Teacher Relationship Specialty Start Date End Date Julian Payne MD PCP - General Internal Medicine 06/23/15 06/20/16 documented as of this encounter
--- OUTSIDE RECORDS SUMMARY | 2024-05-26 13:16 | XMS_ITS | Encounter Summary ---
Author Organization [facility] Address [address] [place] [address] Care Team Providers Care Industrial Maintenance Millwright Name Role Phone Jarrell Garrison MD Primary Care Provider [phone] Reason for Visit * Reason Comments Medication Refill Encounter Details Date Type Department Care Team (Late st Contact Info) Description 09/14/2016 Refill [facility] Endocrinology [address] [place] [address] Yuliya Ibarra MD [address] [place] [address] Social History Tobacco Use Types [...] encounter Miscellaneous Notes * Telephone Encounter - Amalia Paulson - 09/17/2016 3:06 PM CDT galo 06/21/16 Nov 10/04/16 documented in this encounter Plan of Treatment Upcoming Encounters Date Type Department Care Team (Late st Contact Info) Description 07/12/2024 2:30 PM TISSUE PACKER Office Visit [facility] Oncology and Hematology - [place] [address] [facility] [address] [place] [address] Ovidio Nolen MD [address] [facility] [address] [place] [address] documented as of this encounter Visit Diagnoses Not on filedocumented in this encounter Care Teams Industrial Maintenance Millwright Relationship Specialty Start Date End Date Jarrell Garrison MD PCP - General Geriatric Medicine 06/21/16 08/13/18 documented as of this encounter
--- OUTSIDE RECORDS SUMMARY | 2024-05-26 13:16 | XMS_ITS | Encounter Summary ---
Author Organization [facility] Address [address] [place] [address] Care Team Providers Care Elementary Librarian Name Role Phone Jarrell Garrison MD Primary Care Provider [phone] Reason for Visit * Reason Comments Diabetes Encounter Details Date Type Department Care Team (Late st Contact Info) Description 05/02/2017 11:15 AM MACHINE ENGINEER Office Visit [facility] Endocrinology [address] [place] [address] Yuliya Ibarra MD [address] [place] [address] Type 2 diabetes mellitus without complication, without long-term current use of insulin (Primary Dx); Multiple thyroid nodules; Hypercalcemia; Obesity (BMI 30.0-34.9) Social History Tobacco [...] Sign Reading Time Taken Comments Blood Pressure 138/68 05/02/2017 11:10 AM MACHINE ENGINEER Pulse 72 05/02/2017 11:10 AM MACHINE ENGINEER Temperature - - Respiratory Rate - - Oxygen Saturation - - Inhaled Oxygen Concentration - - Weight 95.3 kg (210 lb) 05/02/2017 11:10 AM MACHINE ENGINEER Height 165.1 cm (5' 5 ) 05/02/2017 11:10 AM MACHINE ENGINEER Body Mass Index 34.95 05/02/2017 11:10 AM MACHINE ENGINEER documented in this encounter Progress Notes * Yuliya Ibarra MD - 05/02/2017 11:16 AM CST [facility] Endocrinology Yuliya Ibarra M.D. PCP: Dr. Julian Payne Supervisory Civil Engineer: Dr. Alexandre Reese Neurologist: Dr. Nelson Ross Chicken Hanger: Dr. Krishan Moran Vascular Surgeon: Dr. Elle Landaverde Labeling Specialist: Dr. Laz Valencia Retail Loan Officer: Dr. Phuong Callejas Reason for visit: DM follow-up. Subjective: Perla Leon is a 76 y.o. female with multiple medical problems, who presents to clinic for DM, thyroid nodules, subclinical hypothyroidism, hypercalcemia, atrial fibrillation, follow-up. Patient was diagnosed with multiple thyroid nodules via ultrasound. Her thyroid ultrasound was in October/2013 revealing small thyroid nodules/cysts, f/u ultrasound, done on 02/2015 confirmed small cysts. Patient denies changes in her neck size, dysphagia, voice changes, exposure to radiation treatments. She was started on Levothyroxine 25 mcg daily, but started experiencing hair loss, decided to stop taking. Her previous TSH, done in December 30, was 3.55. DM regimen: currently on Glimepiride 1.5 mg in am, 2 mg with lunch and 2.5 mg with dinner, Januvia 100 mg daily, Levemir 6 units qhs, Jardiance 10 mg daily. Sugars are controlled at this time. Her recent HgA1C was 6.8% - done on 12/30/16 at [facility].CMP was WNL. She is staying well hydrated. Could not tolerate Metformin secondary to diarrhea. Checks her blood sugars 2 times daily, reviewed patient's numbers. Mostly controlled in am, higher before dinner. She tells me she is going out to eat more and sugars are higher then. Glucometer: has one. Last eye exam: 3 months ago - has glaucoma. No hypoglycemia. Goes to a dog food dough mixer. 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 Her DEXA scan revealed osteopenia and she was found to have normal urine calcium level. Patient is taking Triamterene/ HCTZ for her legswelling. She denies having problems with high calcium in the past, denies nephrolithiasis, admits to memory issues. Her last calcium level was WNL She was found to be hypokalemic, started on potassium supplements, takes KCL 40 mEq daily and her last potassium level was normal. She tells me she is taking new diuretics. Using a walker. Review of Systems: Endo/Gen: Her weight has been stable. She: denies polyuria/polydipsia/nocturia, denies blurred vision. Her [...] tablet Take 10 mg by mouth daily piece goods clerk. ??? metOLazone (ZAROXOLYN) 2.5 mg tablet Take 2.5 mg by mouth every 7 days. ??? naproxen (NAPROSYN) 500 mg tablet Take 1 Tablet (500 mg) by mouth 2 times daily with meals. 18 Tablet None ??? potassium chloride (KLOR-CON) 10 mEq Extended Release tablet TAKE 4 TABLETS DAILY WITH BREAKFAST 360 Tablet 0 ??? blood sugar diagnostic (FREESTYLE LITE STRIPS) Strip TEST BLOOD SUGARS TWICE A DAY Dx E11.9. 200 Strip 1 ??? insulin detemir (LEVEMIR FLEXTOUCH) 100 unit/mL pen syringe : INJECT 8 UNITS SUBCUTANEOUSLY DAILY IN IN THE MORNING. (Patient taking differently: : INJECT 6 UNITS SUBCUTANEOUSLY DAILY IN IN THE MORNING. ) 15 mL 2 ??? glimepiride (AMARYL) 1 mg tablet TAKE ONE AND ONE-HALF TABLETS WITH BREAKFAST, TWO TABLETS AT LUNCH, AND TWO AND ONE-HALF TABLETS AT DINNER 540 Tablet 1 ??? JANUVIA 100 mg Tablet TAKE 1 TABLET DAILY WITH BREAKFAST 90 Tablet 1 ??? HAYDEN PEN NEEDLE 32 gauge x 32 Needle USE TO INJECT INSULIN ONCE DAILY 100 Each 3 ??? levothyroxine 25 mcg tablet Take 1 Tablet (25 mcg) by mouth daily piece goods clerk. 30 Tablet 2 ??? bimatoprost (LUMIGAN) 0.01 % solution 1 Drop daily at bedtime. ??? HYPROMELLOSE (SYSTANE GEL OP) by Ophthalmic route. PRN ??? lancets (FREESTYLE LANCETS) 28 gauge 100 Each by [facility]Non-Drug; Combo Route) route daily. Dx code 250.02 100 Each 6 ??? IPRATROPIUM BROMIDE INHALATION Take by inhalation 2 times daily. ??? esomeprazole (NEXIUM) 40 mg Oral CpDR Take 40 mg by mouth daily before breakfast. ??? triamterene-hydrochlorothiazide (MAXZIDE) 75-50 mg Oral tablet Take 1 Tab by mouth daily. ??? amitriptyline (ELAVIL) 50 mg Oral tablet [...] instructed to stop prior to surgery ??? albuterol (PROVENTIL,VENTOLIN) 90 mcg/Actuation Inhalation Aero Take by inhalation every 6 hours as needed. Indications: hasn't used in one year No current facility-administered medications for this visit. Jardiance 10 mg daily ( prescribed by PCP) Social History: Social History Social History ??? Marital status: Spouse name: N/A ??? Number of children: N/A ??? Years of education: N/A Occupational History ??? [employer] Social History Main Topics ??? Smoking status: [...] ??? Cancer skin ??? CVD (cerebrovascular disease) 4061-0161 TIA x2 ??? Diabetes no medication at [...] disorder 2000 after stroke-none since ??? Shingles [id number] x3 ??? Spondylolisthesis l4-l5 Patient Active Problem List Diagnosis Code ? ? ssc, a&p, no sling N99.3 ??? Multiple thyroid nodules E04.2 ??? Hypercalcemia E83.52 ??? Type 2 diabetes mellitus without complication, without long-term current use of insulin E11.9 Past Surgical History: Procedure Laterality Date ??? HX CHOLECYSTECTOMY 1998 ??? HX HEART CATHETERIZATION 2002 dr. Valencia ??? HX HERNIA REPAIR 2009-buddhism mo ??? HX HYSTERECTOMY 1985 ??? HX KNEE ARTHROSCOPY [id number] right knee ??? HX SURGICAL OTHER 1975 ulcer removed from vocal cord ??? HX SURGICAL OTHER 1985 surgery for broken nose ??? HX SURGICAL OTHER 09/10/2010 ANTERIOR POSTERIOR REPAIR performed by FRANKLYN PACK at [facility] OR MAIN ??? RI ANTER COLPORRHAPHY,BLAD/VAGINA 09/10/2010 CYSTOCELE REPAIR performed by FRANKLYN PACK at [facility] OR MAIN ??? RI POST COLPORRHAPHY,RECTUM/VAGINA 09/10/2010 RECTOCELE REPAIR performed by FRANKLYN PACK at [facility] OR MAIN ??? RI REPAIR ENTEROCELE,VAG APPRCH 09/10/2010 ENTEROCELE REPAIR VAGINAL APPROACH performed by FRANKLYN PACK at [facility] OR MAIN ??? RI REPAIR OF PERINEUM,NON OBSTETRICAL 09/10/2010 PERINEOPLASTY performed by FRANKLYN PACK at [facility] OR MAIN ??? RI REPR VAGINAL PROLAPSE,SACROSP LIG 09/10/2010 SACROSPINOUS LIGAMENT FIXATION performed by FRANKLYN PACK at [facility] OR MAIN Physical Findings: Wt Readings from Last 3 Encounters: 05/02/17 95.3 kg (210 lb) 04/18/17 92.5 kg (204 lb) 01/17/17 95.3 kg (210 lb) BP 138/68 Pulse 72 Ht 5' 5 (1.651 m) Wt 95.3 kg (210 lb) BMI 34.95 kg/m?? Normal blood pressure Physical Exam: General appearance: alert, [...] grossly intact Psych: mood and affect appropriate. Lab: Lab Results Component Value Date/Time HGBA1C 6.5 (H) 12/12/2016 04:14 AM Component Latest Ref Rng & Units [...] Creatinine 0.81 Calcium 10.3 TSH 4.45 Reviewed [facility] lab result done on 04/19/14 CMP [...] 31 Lab Results Component Value Date/Time SODIUM 143 12/12/2016 04:14 AM SODIUM 144 01/19/2016 10:52 AM SODIUM 142 01/06/2015 12:18 PM POTASSIUM 4.2 12/12/2016 04:14 AM POTASSIUM 4.0 01/19/2016 10:52 AM POTASSIUM 4.4 01/06/2015 12:18 PM CHLORIDE 108 12/12/2016 04:14 AM CHLORIDE 106 01/19/2016 10:52 AM CHLORIDE 104 01/06/2015 12:18 PM CO2 28 12/12/2016 04:14 AM CO2 25 01/19/2016 10:52 AM CO2 26 01/06/2015 12:18 PM BUN 15 12/12/2016 04:14 AM BUN 23 01/19/2016 10:52 AM BUN 17 01/06/2015 12:18 PM GLUCOSE 102 (H) 12/12/2016 04:14 AM GLUCOSE 104 (H) 01/19/2016 10:52 AM GLUCOSE 158 (H) 01/06/2015 12:18 PM Lab Results Component Value Date/Time ALBUMIN 3.8 12/12/2016 04:14 AM CREATININE 0.99 (H) 12/12/2016 04:14 AM CREATININE 0.96 (H) 01/19/2016 10:52 AM CREATININE 0.87 01/06/2015 12:18 PM Lab Results Component Value Date/Time TSH 3.87 12/12/2016 04:14 AM TSH 5.89 (H) 01/19/2016 10:52 AM TSH 4.24 (H) 11/17/2013 03:36 PM TSH 5.22 (H) 04/28/2013 03:24 PM Lab Results Component Value Date/Time VITAMIN [...] right thyroid lobe nodule is stable. ?? Assessment/Plan: 1. Type II Diabetes Mellitus discussed the risk factors associated with diabetes. have encouraged diet and exercise as tolerated with her. Improved blood glucose. Continue current medications, Levemir. Patient was asked to monitor blood sugars and write down how much diabetic meds taken/accucheck time/special circumstances Diabetes plan reviewed with patient. Will repeat HgA1C, CMP, TSH, urine microalbumin/creatinine. 2. Hypercalcemia - Most likely primary hyperparathyroidism. H/o high PTH Better calcium levels lately - WNL. needs to stay well hydrated. Conservative management. Check CMP 3. Hypokalemia - takes HCTZ, KCL 40 mEq daily. Last K 3.8, will repeat, but needs to be monitored by a physician prescribing her diuretics. 4. Thyroid nodules - stable, small cystic. Last ultrasound was done in 02/2015. Subclinical hypothyroidism. Slightly high TSH, c/o weight gain and fatigue. Was on Levothyroxine 25 mcg daily, stopped taking due to hair loss. Her last TSH was WNL, will repeat before next visit. Needs to be careful due to h/o a-fib. Patient is to call if experiences increase in her neck size/dysphagia/dyspnea/voice changes/tremors/palpitations or other problems arise. Follow-up in 3 months. >15 min of this 25 min visit was discussion/counseling. I would like to thank you for allowing me to participate in this patient's care, if you have any questions regarding my recommendations please do not hesitate to contact me at any time. Sincerely, Yuliya Ibarra MD INE ENGINEER documented in this encounter Plan of Treatment Upcoming Encounters Date Type Department Care Team (Late st Contact Info) Description 07/12/2024 2:30 PM MACHINE ENGINEER Office Visit [facility] Oncology and Hematology - [place] [address] [facility] [address] [place] [address] Ovidio Nolen MD [address] [place] [address] documented as of this encounter Results * MICROALBUMIN/CREATININE RATIO, RANDOM UR (05/02/2017 12:38 PM MACHINE ENGINEER) MICROALBUMIN, URINE <1.2 No Reference Range mg/dL 05/02/2017 2:23 PM MACHINE ENGINEER [facility] CREATININE, URINE 59.8 29.0 - 226.0 mg/dL 05/02/2017 2:23 PM MACHINE ENGINEER [facility] Comment: Reference Range varies with fluid intake and diet. MICROALBUMIN/C REAT RATIO, UR <20.1 <25.0 mg/g 05/02/2017 2:23 PM MACHINE ENGINEER [facility] Urine URINE SPECIMEN OBTAINED BY CLEAN CATCH PROCEDURE / Unknown Collection / Unknown 05/02/2017 12:38 PM MACHINE ENGINEER 05/02/2017 1:18 PM MACHINE ENGINEER Narrative [facility] - 05/02/2017 2:23 PM MACHINE ENGINEER Condition ? Microalbumin/Creat ratio Normal Males ? <17 Normal Females ? <25 Microalbuminuria Males ?17-299 Microalbuminuria Females ?25-299 Overt proteinuria ? >=300 Yuliya Ibarra MD URINE ORDERABLES Performing Organization Address [facility] Co de Phone Number [facility]# [id number] [address] [place] [address] * (ABNORMAL) HEMOGLOBIN A1C (05/02/2017 11:47 AM MACHINE ENGINEER) HEMOGLOBIN A1C 7.1(H) 4.0 - 6.0 % 05/02/2017 1:14 PM MACHINE ENGINEER [facility] [facility] EST. AVG GLUCOSE, A1C 157 mg/dL 05/02/2017 1:14 PM MACHINE ENGINEER [facility] Blood Venipuncture / Unknown 05/02/2017 11:47 AM MACHINE ENGINEER 05/02/2017 12:12 PM MACHINE ENGINEER Yuliya Ibarra MD CHEMISTRY ORDERABLES Performing Organization Address [facility] Co de Phone Number [facility]# [id number] [address] [place] [address] * (ABNORMAL) COMPREHENSIVE METABOLIC PANEL (05/02/2017 11:47 AM MACHINE ENGINEER) [facility] SODIUM 142 136 - 145 mmol/L 05/02/2017 12:54 PM [facility] POTASSIUM 3.0(L) 3.5 - 5.0 mmol/L 05/02/2017 12:54 PM [facility] CHLORIDE 101 98 - 107 mmol/L 05/02/2017 12:54 PM [facility] CO2 27 22 - 29 mmol/L 05/02/2017 12:54 PM [facility] CALCIUM 9.9 8.6 - 10.2 mg/dL 05/02/2017 12:54 PM [facility] BUN 17 8 - 23 mg/dL 05/02/2017 12:54 PM [facility] CREATININE 0.82 0.51 - 0.95 mg/dL 05/02/2017 12:54 PM [facility] Comment: The GFR result is not clinically significant on patients <18 or >70 years of age. GLUCOSE 115(H) 74 - 99 mg/dL 05/02/2017 12:54 PM [facility] TOTAL PROTEIN 6.5(L) 6.7 - 8.6 g/dL 05/02/2017 12:54 PM [facility] ALBUMIN 4.2 3.5 - 5.2 g/dL 05/02/2017 12:54 PM [facility] BILIRUBIN TOTAL 0.2 0.2 - 1.1 mg/dL 05/02/2017 12:54 PM [facility] ALKALINE PHOSPHATASE 93 35 - 104 U/L 05/02/2017 12:54 PM [facility] AST 20 <33 U/L 05/02/2017 12:54 PM [facility] ALT 23 <34 U/L 05/02/2017 12:54 PM [facility] GFR >60 mL/min/1.7 3 sq meter 05/02/2017 12:54 PM [facility] Comment: eGFR has not been validated for [...] result. GFR, >60 mL/min/1.7 3 sq meter 05/02/2017 12:54 PM MACHINE ENGINEER [employer] [facility] ANION GAP 14 8 - 16 mmol/L 05/02/2017 12:54 PM MACHINE ENGINEER [employer] [facility] Blood Venipuncture / Unknown 05/02/2017 11:47 AM MACHINE ENGINEER 05/02/2017 12:12 PM MACHINE ENGINEER Narrative [facility] - 05/02/2017 12:54 PM MACHINE ENGINEER Samples containing indocyanine green cause interferences on Total and/or Direct Bilirubin and must not be measured. Yuliya Ibarra MD CHEMISTRY ORDERABLES [facility] [facility]# [id number] [address] [place] [place] [address] * (ABNORMAL) TSH (05/02/2017 11:47 AM MACHINE ENGINEER) TSH 5.24(H) 0.27 - 4.20 uIU/mL 05/02/2017 1:12 PM MACHINE ENGINEER [employer] [facility] Blood Venipuncture / Unknown 05/02/2017 11:47 AM MACHINE ENGINEER 05/02/2017 12:12 PM MACHINE ENGINEER Yuliya Ibarra MD CHEMISTRY ORDERABLES [facility] [employer] [facility] CLIA# [id number] [address] [place] [address] documented in this encounter Visit Diagnoses Diagnosis Type 2 diabetes mellitus without complication, without long-term current use of insulin- Primary Multiple thyroid nodules Nontoxic multinodular goiter Hypercalcemia Obesity (BMI 30.0-34.9) Obesity, unspecified documented in this encounter Care Teams Elementary Librarian Relationship Specialty Start Date End Date Jarrell Garrison MD PCP - General Geriatric Medicine 06/21/16 08/13/18 documented as of this encounter
--- OUTSIDE RECORDS SUMMARY | 2024-05-26 13:16 | XMS_ITS | Encounter Summary ---
Author Organization [facility] Address [address] [place] [address] Care Team Providers Care Non Acoustic Operator Name Role Phone Jarrell Garrison MD Primary Care Provider [phone] Reason for Visit * Reason Onset Date Comments Medication Refill 06/20/2017 Encounter Details Date Type Department Care Team (Late st Contact Info) Description 06/20/2017 Refill [facility] Endocrinology [address] [place] [address] Yuliya Ibarra MD [address] [place] [address] Social History Tobacco Use Types [...] * Telephone Encounter - Bekah Wang - 06/20/2017 6:03 PM CST galo 05/02/17 , cx 08/15/17 , nov 09/24/17 06/20/17 06/23/17 left mssg pt , that Per md this needs to be filled by pcp . Not endo med NATION MACHINE OPERATOR documented in this encounter Plan of Treatment Upcoming Encounters Date Type Department Care Team (Late st Contact Info) Description 07/12/2024 2:30 PM LAMINATION MACHINE OPERATOR Office Visit [facility] Oncology and Hematology - [place] [address] [facility] [address] [place] [address] Ovidio Nolen MD [address] [place] [address] documented as of this encounter Visit Diagnoses Not on filedocumented in this encounter Care Teams Non Acoustic Operator Relationship Specialty Start Date End Date Jarrell Garrison MD PCP - General Geriatric Medicine 06/21/16 08/13/18 documented as of this encounter
--- OUTSIDE RECORDS SUMMARY | 2024-05-26 13:16 | XMS_ITS | Encounter Summary ---
Author Organization [employer] [facility] Address [address] [place] [address] Care Team Providers Care Credit Collections Rep Name Role Phone Jarrell Garrison MD Primary Care Provider [phone] Reason for Visit * Auth/Cert Specialty Diagnoses / Procedures Referred By Alejandrina vale Referred To Contact Laboratory [facility] [place] A [address], [place] [address] Referral ID Status Reason Start Date Expiration Date Visits Re quested Visits Authorized [id number] 1 1 Encounter Details Date Type Department Care Team (Latest Contact Info) Description 05/02/2017 11:43 AM RELISH MAKER - 05/02/2017 11:59 PM [facility] Hospital Encounter [facility] Services Medical [place] A [address], [place] [address] Yuliya Ibarra MD [address] [place] [address] Discharge Disposition: Home or Self [...] Sig Dispensed Refills Start Date End Date metOLazone (ZAROXOLYN) 2.5 mg tablet Take 2.5 mg by mouth every 7 days. potassium chloride (KLOR-CON) 10 mEq Extended Release tablet TAKE 4 TABLETS DAILY WITH BREAKFAST 360 Tablet 04/02/2017 lancets (FREESTYLE LANCETS) 28 gauge 100 Each by [facility].(Non-Drug; Combo Route) route daily. Dx code 250.02 [...] mcg by mouth daily. multivitamin (DAILY-BRYON) Oral tabletIndications:i nstructed to stop prior to surgery Take 1 Tab by mouth daily. 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 10/10/2017 blood sugar diagnostic (FREESTYLE LITE STRIPS) Strip TEST BLOOD SUGARS TWICE A DAY Dx E11.9. 200 Strip 1 02/18/2017 10/04/2018 insulin detemir (LEVEMIR FLEXTOUCH) 100 unit/mL pen syringe : INJECT 8 UNITS SUBCUTANEOUSLY DAILY IN IN THE MORNING. 15 mL 2 02/05/2017 01/23/2018 glimepiride (AMARYL) 1 mg tablet TAKE ONE AND ONE-HALF TABLETS WITH BREAKFAST, TWO TABLETS AT LUNCH, AND TWO AND ONE-HALF TABLETS AT DINNER 540 Tablet 1 12/11/2016 06/01/2017 JANUVIA 100 mg Tablet TAKE 1 TABLET DAILY WITH BREAKFAST 90 Tablet 1 12/11/2016 06/01/2017 HAYDEN PEN NEEDLE 32 gauge x 5/32 Needle USE TO INJECT INSULIN ONCE DAILY 100 Each 3 11/08/2016 01/13/2018 documented as of this encounter Plan of Treatment Upcoming Encounters Date Type Department Care Team (Late st Contact Info) Description 07/12/2024 2:30 PM RELISH MAKER Office Visit [facility] Oncology and Hematology - [place] [address] [place] [address] Ovidio Nolen MD [address] [facility] [address] [place] [address] documented as of this encounter Procedures Procedure Name Priority Date/Time Associated Diagnosis Comments MICROALBUMIN/CREATININ E RATIO, RANDOM UR Routine 05/02/2017 12:38 PM RELISH MAKER Type 2 diabetes mellitus without complication, without long-term current use of insulin TSH Routine 05/02/2017 11:47 AM RELISH MAKER Multiple thyroid nodules HEMOGLOBIN A1C Routine 05/02/2017 11:47 AM RELISH MAKER Type 2 diabetes mellitus without complication, without long-term current use of insulin COMPREHENSIVE METABOLIC PANEL Routine 05/02/2017 11:47 AM RELISH MAKER Type 2 diabetes mellitus without complication, without long-term current use of insulin documented in this encounter Results * MICROALBUMIN/CREATININE RATIO, RANDOM UR (05/02/2017 12:38 PM RELISH MAKER) MICROALBUMIN, URINE <1.2 No Reference Range mg/dL 05/02/2017 2:23 PM [facility] [employer] [facility] CREATININE, URINE 59.8 29.0 - 226.0 mg/dL 05/02/2017 2:23 PM [facility] [employer] [facility] Comment: Reference Range varies with fluid intake and diet. MICROALBUMIN/C REAT RATIO, UR <20.1 <25.0 mg/g 05/02/2017 2:23 PM [facility] [employer] [facility] Urine URINE SPECIMEN OBTAINED BY CLEAN CATCH PROCEDURE / Unknown Collection / Unknown 05/02/2017 12:38 PM RELISH MAKER 05/02/2017 1:18 PM RELISH MAKER [facility] [employer] [facility] - 05/02/2017 2:23 PM RELISH MAKER Condition ? Microalbumin/Creat ratio Normal Males ? <17 Normal Females ? <25 Microalbuminuria Males ?17-299 Microalbuminuria Females ?25-299 Overt proteinuria ? >=300 Yuliya Ibarra MD URINE ORDERABLES Performing Organization Address [facility] de Phone Number [facility] [employer] [facility]# [id number] [address] [place] [address] * (ABNORMAL) HEMOGLOBIN A1C (05/02/2017 11:47 AM RELISH MAKER) Pathologist [facility] HEMOGLOBIN A1C 7.1(H) 4.0 - 6.0 % 05/02/2017 1:14 PM [facility] [employer] [facility] EST. AVG GLUCOSE, A1C 157 mg/dL 05/02/2017 1:14 PM [facility] [employer] [facility] Blood Venipuncture / Unknown 05/02/2017 11:47 AM RELISH MAKER 05/02/2017 12:12 PM RELISH MAKER Yuliya Ibarra MD CHEMISTRY ORDERABLES Performing Organization Address [facility] de Phone Number [facility] [employer] [facility]# [id number] [address] [place] [address] * (ABNORMAL) COMPREHENSIVE METABOLIC PANEL (05/02/2017 11:47 AM RELISH MAKER) Pathologist [facility] SODIUM 142 136 - 145 mmol/L 05/02/2017 12:54 PM [facility] [employer] [facility] POTASSIUM 3.0(L) 3.5 - 5.0 mmol/L 05/02/2017 12:54 PM [facility] [employer] [facility] CHLORIDE 101 98 - 107 mmol/L 05/02/2017 12:54 PM [facility] LABORATORY SERVICES - [facility] CO2 27 22 - 29 mmol/L 05/02/2017 12:54 PM [facility] [employer] LABORATORY SERVICES - . [place] CALCIUM 9.9 8.6 - 10.2 mg/dL 05/02/2017 12:54 PM [facility] [employer] LABORATORY [facility] BUN 17 8 - 23 mg/dL 05/02/2017 12:54 PM [facility] [employer] LABORATORY SERVICES - . [place] CREATININE 0.82 0.51 - 0.95 mg/dL 05/02/2017 12:54 PM [facility] [employer] [facility]AT[facility] SERVICES - [facility] Comment: The GFR result is not clinically significant on patients <18 or >70 years of age. GLUCOSE 115(H) 74 - 99 mg/dL 05/02/2017 12:54 PM RELISH MAKER [employer] LABORATORY SERVICES - . [place] TOTAL PROTEIN 6.5(L) 6.7 - 8.6 g/dL 05/02/2017 12:54 PM [employer] [facility] - . [place] ALBUMIN 4.2 3.5 - 5.2 g/dL 05/02/2017 12:54 PM [employer] [facility] - . [place] BILIRUBIN TOTAL 0.2 0.2 - 1.1 mg/dL 05/02/2017 12:54 PM RELISH MAKER [employer] LABORATORY SERVICES - . [place] ALKALINE PHOSPHATASE 93 35 - 104 U/L 05/02/2017 12:54 PM [employer] [facility]. [facility] AST 20 <33 U/L 05/02/2017 12:54 PM [employer] [facility] - . [facility] ALT 23 <34 U/L 05/02/2017 12:54 PM [employer] SERVICES - . [facility] GFR >60 mL/min/1.7 3 sq meter 05/02/2017 12:54 PM [employer] LABORATORY SERVICES - . [place] Comment: eGFR [...] mL/min/1.7 3 sq meter 05/02/2017 12:54 PM RELISH MAKER [facility] LABORATORY [facility] ANION GAP 14 8 - 16 mmol/L 05/02/2017 12:54 PM [facility] Blood Venipuncture / Unknown 05/02/2017 11:47 AM RELISH MAKER 05/02/2017 12:12 PM RELISH MAKER Narrative [facility] LABORATORY [facility] - 05/02/2017 12:54 PM RELISH MAKER Samples containing indocyanine green cause interferences on Total and/or Direct Bilirubin and must not be measured. Yuliya Ibarra MD CHEMISTRY ORDERABLES [facility]# [id number] [address] [place] [address] * (ABNORMAL) TSH (05/02/2017 11:47 AM RELISH MAKER) TSH 5.24(H) 0.27 - 4.20 uIU/mL 05/02/2017 1:12 PM [facility] Blood Venipuncture / Unknown 05/02/2017 11:47 AM RELISH MAKER 05/02/2017 12:12 PM RELISH MAKER Yuliya Ibarra MD CHEMISTRY ORDERABLES [facility]# [id number] [address] [place] [address] documented in this encounter Visit Diagnoses Diagnosis Multiple thyroid nodules Nontoxic multinodular goiter Type 2 diabetes mellitus without complication, without long-term current use of insulin documented in this encounter Care Teams Credit Collections Rep Relationship Specialty Start Date End Date Jarrell Garrison MD PCP - General Geriatric Medicine 06/21/16 08/13/18 documented as of this encounter
--- OUTSIDE RECORDS SUMMARY | 2024-05-26 13:16 | XMS_ITS | Encounter Summary ---
Author Organization [email or web address] Address [address] [place] [address] Care Team Providers Care Fruit I Farmworker Name Role Phone Julian Payne MD Primary Care Provider [phone] Reason for Visit * Reason Comments Medication Refill Encounter Details Date Type Department Care Team (Late Contact Info) Description 01/21/2016 Refill [facility] Endocrinology [address] [place] [address] Yuliya Ibarra MD [address] [place] [address] Social History Tobacco Use Types [...] encounter Miscellaneous Notes * Telephone Encounter - Helena Chan RMA - 01/23/2016 4:38 PM CDT Nov 06/21/16 galo 01/19/16 documented in this encounter Plan of Treatment Upcoming Encounters Date Type Department Care Team (Late Contact Info) Description 07/12/2024 2:30 PM HANDSTITCHING MACHINE ARMHOLE FELLER Office Visit [facility] Oncology and Hematology - [place] [address] [facility] [address] [place] [address] Ovidio Nolen MD [address] [facility] [address] [place] [address] documented as of this encounter Visit Diagnoses Not on filedocumented in this encounter Care Teams Fruit I Farmworker Relationship Specialty Start Date End Date Julian Payne MD PCP - General Internal Medicine 06/23/15 06/20/16 documented as of this encounter
--- OUTSIDE RECORDS SUMMARY | 2024-05-26 13:16 | XMS_ITS | Encounter Summary ---
Author Organization [facility] Address [address] [place] [address] Care Team Providers Care Industrial Workers Name Role Phone Jarrell Garrison MD Primary Care Provider [phone] Reason for Visit * Reason Onset Date Comments Medication Problem 12/09/2016 Encounter Details Date Type Department Care Team (Late st Contact Info) Description 12/09/2016 Telephone [facility] Endocrinology [address] [place] [address] Yuliya Ibarra MD [address] [place] [address] Medication Problem Social History Tobacco Use Types [...] encounter Miscellaneous Notes * Telephone Encounter - Duane Rios - 12/09/2016 2:21 PM CDT Spoke with patient and relayed message. Sees her PCP tomorrow and wanted to wait to see if he wanted any other tests added. After visit will get labs drawn. Informed pt to call us back when she get the labs drawn * Telephone Encounter - Yuliya Ibarra MD - 12/09/2016 1:18 PM CDT She was supposed to repeat her lab - TSH. I can switch her to brand name - Synthroid if she is willing, but needs to do blood work first * Telephone Encounter - Duane Rios - 12/09/2016 1:10 PM CDT Patient called and LMOV for Bekah. Reports her hair is falling out and read this could be a side effect of the levothyroxine she is on. Wants to know if she can try something different. Please advise documented in this encounter Plan of Treatment Upcoming Encounters Date Type Department Care Team (Late st Contact Info) Description 07/12/2024 2:30 PM VEHICLE DAMAGE APPRAISER Office Visit [facility] Oncology and Hematology - [place] [address] [facility] [address] [place] [address] Ovidio Nolen MD [address] [facility] [address] [place] [address] documented as of this encounter Visit Diagnoses Not on filedocumented in this encounter Care Teams Industrial Workers Relationship Specialty Start Date End Date Jarrell Garrison MD PCP - General Geriatric Medicine 06/21/16 08/13/18 documented as of this encounter
--- OUTSIDE RECORDS SUMMARY | 2024-05-26 13:16 | XMS_ITS | Encounter Summary ---
Author Organization [facility] Address [address] [place] [address] Care Team Providers Care Link Wire Fabric Machine Tender Name Role Phone Julian Payne MD Primary Care Provider [phone] Reason for Visit * Reason Onset Date Comments Medication Refill 10/06/2015 Encounter Details Date Type Department Care Team (Late st Contact Info) Description 10/06/2015 Refill [facility] Endocrinology [address] [place] [address] Yuliya Ibarra MD [address] [place] [address] Diabetes mellitus type II, uncontrolled (Primary Dx) Social History Tobacco Use Types [...] encounter Miscellaneous Notes * Telephone Encounter - Isidra Baker, A - 10/06/2015 3:50 PM CDT Patient states she is taking 1 and a half tabs w breakfast, 2 tabs at lunch and 2 and a half tabs at dinner. Nov: 01-19-16, [place]: 09-21-14 documented in this encounter Plan of Treatment Upcoming Encounters Date Type Department Care Team (Late st Contact Info) Description 07/12/2024 2:30 PM TERRY CLOTH CUTTER HAND Office Visit [facility]3] Oncology and Hematology - [employer] [address] [facility] [address] [place] [address] Ovidio Nolen MD [address] [facility] [address] [place] [address] documented as of this encounter Visit Diagnoses Diagnosis Diabetes mellitus type II, uncontrolled- Primary Type II or unspecified type diabetes mellitus without mention of complication, uncontrolled documented in this encounter Care Teams Link Wire Fabric Machine Tender Relationship Specialty Start Date End Date Julian Payne MD PCP - General Internal Medicine 06/23/15 06/20/16 documented as of this encounter
--- OUTSIDE RECORDS SUMMARY | 2024-05-26 13:16 | XMS_ITS | Encounter Summary ---
Author Organization [facility] Address [address] [place] [address] Care Team Providers Care Atmospheric Sciences Professor Name Role Phone Julian Payne MD Primary Care Provider [phone] Reason for Visit * Reason Onset Date Comments Results 10/18/2015 Encounter Details Date Type Department Care Team (Late st Contact Info) Description 10/18/2015 Telephone [facility] Endocrinology [address] [place] [address] Yuliya Ibarra MD [address] [place] [address] Results Social History Tobacco Use [...] * Telephone Encounter - Kati Quintero - 10/19/2015 10:45 AM CDT Spoke to pt and informed of results. * Telephone Encounter - Brandi Gerardo MD - 10/18/2015 5:29 PM CDT Please let the patient know that Her A1c is 7.4 To send her blood sugars in 1-2 weeks Thank you * Telephone Encounter - Kati Quintero - 10/18/2015 4:34 PM CDT Images from the original note were not included. Lab results from [facility] documented in this encounter Plan of Treatment Upcoming Encounters Date Type Department Care Team (Late st Contact Info) Description 07/12/2024 2:30 PM CRYSTALIZER TENDER Office Visit [facility] Oncology and Hematology [facility] [address] [facility] [address] [place] [address] Ovidio Nolen MD [address] [facility] [address] [place] [address] documented as of this encounter Procedures Procedure Name Priority Date/Time Associated Diagnosis Comments HEMOGLOBIN A1C Routine 10/18/2015 documented in this encounter Results * (ABNORMAL) HEMOGLOBIN A1C (10/18/2015) ABSTRACTED HGB A1C NON [facility] HEMOGLOBIN A1C 7.4(A) 4.7 - 6.4 % NON [facility] HEMOGLOBIN A1C NON [facility] GLUCOSE, MEAN BLOOD NON [facility] Blood specimen (specimen) 10/18/2015 Yuliya Ibarra MD CHEMISTRY ORDERABLES NON [facility] documented in this encounter Visit Diagnoses Not on filedocumented in this encounter Care Teams Atmospheric Sciences Professor Relationship Specialty Start Date End Date Julian Payne MD PCP - General Internal Medicine 06/23/15 06/20/16 documented as of this encounter
--- OUTSIDE RECORDS SUMMARY | 2024-05-26 13:16 | XMS_ITS | Encounter Summary ---
Author Organization [facility] Address [address] [place] [address] Care Team Providers Care Engineering Manager Electronics Name Role Phone Julian Payne MD Primary Care Provider [phone] Reason for Visit * Reason Onset Date Comments Medication Refill 05/15/2016 Encounter Details Date Type Department Care Team (Late st Contact Info) Description 05/15/2016 Refill [facility] Endocrinology [address] [place] [address] Yuliya Ibarra MD [address] [place] [address] Social History Tobacco Use Types [...] * Telephone Encounter - Bekah Wang - 05/15/2016 1:25 PM CST JOSE G 01/19/16 , NOV 06/21/16 ON PAPER INTERLEAFER documented in this encounter Plan of Treatment Upcoming Encounters Date Type Department Care Team (Late st Contact Info) Description 07/12/2024 2:30 PM CARBON PAPER INTERLEAFER Office Visit [facility] Oncology and Hematology - [place] [address] [facility] [address] [place] [address] Ovidio Nolen MD [address] [facility] [address] [place] [address] documented as of this encounter Visit Diagnoses Not on filedocumented in this encounter Care Teams Engineering Manager Electronics Relationship Specialty Start Date End Date Julian Payne MD PCP - General Internal Medicine 06/23/15 06/20/16 documented as of this encounter
--- OUTSIDE RECORDS SUMMARY | 2024-05-26 13:16 | XMS_ITS | Encounter Summary ---
Author Organization [facility] Address [address] [place] [address] Care Team Providers Care Test Borer Helper Name Role Phone Jarrell Garrison MD Primary Care Provider [phone] Reason for Visit * Reason Onset Date Comments Results 10/04/2016 a1c Encounter Details Date Type Department Care Team (Late st Contact Info) Description 10/04/2016 Telephone [facility] Endocrinology [address] [place] [address] Yuliya Ibarra MD [address] [place] [address] Results (a1c) Social History Tobacco Use Types Packs/Day Years [...] * Telephone Encounter - Kati Quintero - 10/04/2016 11:42 AM CDT Pt informed of results at appt today. * Telephone Encounter - Kati Quintero - 10/04/2016 11:42 AM CDT ----- Message from Yuliya Ibarra MD sent at 10/02/2016 5:03 PM CDT ----- Good HgA1C documented in this encounter Plan of Treatment Upcoming Encounters Date Type Department Care Team (Late st Contact Info) Description 07/12/2024 2:30 PM TECHNICAL INSPECTOR Office Visit [facility] Oncology and Hematology - [place] [address] [facility] [address] [place] [address] Ovidio Nolen MD [address] [facility] [address] [place] [address] documented as of this encounter Visit Diagnoses Not on filedocumented in this encounter Care Teams Test Borer Helper Relationship Specialty Start Date End Date Jarrell Garrison MD PCP - General Geriatric Medicine 06/21/16 08/13/18 documented as of this encounter
--- OUTSIDE RECORDS SUMMARY | 2024-05-26 13:16 | XMS_ITS | Encounter Summary ---
Author Organization [facility] Address [address] [place] [address] Care Team Providers Care Cutter And Paster Press Clippings Name Role Phone Jarrell Garrison MD Primary Care Provider [phone] Encounter Details Date Type Department Care Team (Late st Contact Info) Description 10/29/2016 Abstract [facility] Endocrinology [address] [place] [address] Yuliya Ibarra MD [address] [place] [address] Social History Tobacco Use Types [...] st Contact Info) Description 07/12/2024 2:30 PM SHIPPING SUPPORT CLERK Office Visit [facility] Oncology and Hematology - [place] [address] [facility] [address] [place] [address] Ovidio Nolen MD [address] [facility] [address] [place] [address] documented as of this encounter Visit Diagnoses Not on filedocumented in this encounter Care Teams Cutter And Paster Press Clippings Relationship Specialty Start Date End Date Jarrell Garrison MD PCP - General Geriatric Medicine 06/21/16 08/13/18 documented as of this encounter
--- OUTSIDE RECORDS SUMMARY | 2024-05-26 13:16 | XMS_ITS | Encounter Summary ---
Author Organization [facility] Address [address] [place] [address] Care Team Providers Care Ambulance Dispatcher Name Role Phone Jarrell Garrison MD Primary Care Provider [phone] Reason for Visit * Reason Comments Medication Refill Encounter Details Date Type Department Care Team (Late st Contact Info) Description 08/01/2016 Refill [facility] Endocrinology [address] [facility] [place] [address] [place] [address] Yuliya Ibarra MD [address] [place] [address] Social History Tobacco Use Types [...] * Telephone Encounter - Kati Quintero - 08/05/2016 1:36 PM CDT Nov 10/04/16 galo 06/21/16 documented in this encounter Plan of Treatment Upcoming Encounters Date Type Department Care Team (Late st Contact Info) Description 07/12/2024 2:30 PM CYCLE SPECIALIST Office Visit [facility] Oncology and Hematology - [place] [address] [facility] [address] [place] [address] Ovidio Nolen MD [address] [facility] [address] [place] [address] documented as of this encounter Visit Diagnoses Not on filedocumented in this encounter Care Teams Ambulance Dispatcher Relationship Specialty Start Date End Date Jarrell Garrison MD PCP - General Geriatric Medicine 06/21/16 08/13/18 documented as of this encounter
--- OUTSIDE RECORDS SUMMARY | 2024-05-26 13:16 | XMS_ITS | Encounter Summary ---
Author Organization [facility] Address [address] [place] [address] Care Team Providers Care Pbx Manager Name Role Phone Julian Payne MD Primary Care Provider [phone] Reason for Visit * Reason Comments Medication Refill Encounter Details Date Type Department Care Team (Late st Contact Info) Description 06/15/2016 Refill [facility] Endocrinology [address] [place] [address] Yuliya Ibarra MD [address] [place] [address] Social History Tobacco Use Types [...] * Telephone Encounter - Kati Quintero - 06/17/2016 8:10 AM TRESTLE BUILDER Nov 06/21/16 galo 01/19/16 TLE BUILDER documented in this encounter Plan of Treatment Upcoming Encounters Date Type Department Care Team (Late st Contact Info) Description 07/12/2024 2:30 PM TRESTLE BUILDER Office Visit [facility] Oncology and Hematology - [place] [address] [facility] [address] [place] [address] Ovidio Nolen MD [address] [facility] [address] [place] [address] documented as of this encounter Visit Diagnoses Not on filedocumented in this encounter Care Teams Pbx Manager Relationship Specialty Start Date End Date Julian Payne MD PCP - General Internal Medicine 06/23/15 06/20/16 documented as of this encounter
--- OUTSIDE RECORDS SUMMARY | 2024-05-26 13:16 | XMS_ITS | Encounter Summary ---
Author Organization [facility] Address [address] [place] [address] Care Team Providers Care Cuff Runner Name Role Phone Jarrell Garrison MD Primary Care Provider [phone] Reason for Visit * Reason Comments Medication Refill Encounter Details Date Type Department Care Team (Late st Contact Info) Description 04/02/2017 Refill [facility] [address] [place] [address] Yuliya Ibarra MD [address] [facility] [place] [address] Social History Tobacco Use Types [...] * Telephone Encounter - Nivia Shea - 04/02/2017 12:04 PM CST galo 01/17/17, nov 05/02/17 CTOR OF PATIENT FINANCIAL SERVICES documented in this encounter Plan of Treatment Upcoming Encounters Date Type Department Care Team (Late st Contact Info) Description 07/12/2024 2:30 PM DIRECTOR OF PATIENT FINANCIAL SERVICES Office Visit [facility] - [place] [address] [place] [address] Ovidio Nolen MD [address] [facility] [address] [place] [address] documented as of this encounter Visit Diagnoses Not on filedocumented in this encounter Care Teams Cuff Runner Relationship Specialty Start Date End Date Jarrell Garrison MD PCP - General Geriatric Medicine 06/21/16 08/13/18 documented as of this encounter
--- OUTSIDE RECORDS SUMMARY | 2024-05-26 13:16 | XMS_ITS | Encounter Summary ---
Author Organization [address] Address [address] [place] [address] Care Team Providers Care Diabetes Educator Name Role Phone Jarrell Garrison MD Primary Care Provider [phone] Encounter Details Date Type Department Care Team (Latest Contact Info) Description 01/23/2018 1:44 PM CDT - 01/23/2018 11:59 PM CDT Hospital Encounter [facility] Laboratory Services [facility] [place] [address] [place] [address] Yuliya Ibarra MD [address] [place] [address] Discharge Disposition: Home or Self [...] (FREESTYLE LANCETS) 28 gauge 100 Each by [facility].(Non-Drug; Combo Route) route daily. Dx code [...] Indications: instructed to stop prior to surgery HAYDEN PEN NEEDLE 32 gauge x 5/32 Needle USE TO INJECT INSULIN ONCE DAILY 100 Each 3 01/13/2018 05/05/2020 glimepiride (AMARYL) 1 mg tablet TAKE ONE AND ONE-HALF TABLETS WITH BREAKFAST, TWO TABLETS AT LUNCH, AND TWO AND ONE-HALF TABLETS AT DINNER. 540 Tablet 10/21/2017 03/01/2018 sitaGLIPtin (JANUVIA) 100 mg Tablet TAKE 1 TABLET DAILY WITH BREAKFAST. 90 Tablet 10/21/2017 02/05/2018 empagliflozin (JARDIANCE) 10 mg tablet Take 1 Tablet (10 mg) by mouth daily early childhood lead teacher. 90 Tablet 1 10/10/2017 07/16/2018 blood sugar diagnostic (FREESTYLE LITE STRIPS) Strip TEST BLOOD SUGARS TWICE A DAY Dx E11.9. 200 Strip 1 02/18/2017 10/04/2018 documented as of this encounter Plan of Treatment Upcoming Encounters Date Type Department Care Team (Late st Contact Info) Description 07/12/2024 2:30 PM DENTAL LABORATORY MANAGER Office Visit [facility] - [place] [address] [address] [place] [address] Ovidio Nolen MD [address] [facility] [address] [place] [address] documented as of this encounter Procedures Procedure Name Priority Date/Time Associated Diagnosis Comments TSH Routine 01/23/2018 1:48 PM CDT Multiple thyroid nodules Subclinical hypothyroidism HEMOGLOBIN A1C Routine 01/23/2018 1:48 PM CDT Type 2 diabetes mellitus without complication, without long-term current use of insulin COMPREHENSIVE METABOLIC PANEL Routine 01/23/2018 1:48 PM CDT Type 2 diabetes mellitus without complication, without long-term current use of insulin documented in this encounter Results * (ABNORMAL) HEMOGLOBIN A1C (01/23/2018 1:48 PM CDT) HEMOGLOBIN A1C 6.8(H) 4.0 - 6.0 % 01/23/2018 6:09 PM CDT [facility] EST. AVG GLUCOSE, A1C 148 mg/dL 01/23/2018 6:09 PM CDT [facility] Blood Venipuncture / Unknown 01/23/2018 1:48 PM CDT 01/23/2018 2:21 PM CDT Narrative [facility] - 01/23/2018 6:09 PM CDT HGB A1C INTERPRETATION NORMAL: ? <5.7% PRE-DIABETES: 5.7 - 6.4% DIABETES: ? 6.5% OR GREATER Yuliya Ibarra MD CHEMISTRY ORDERABLES [facility]# [id number] [address] [place] [address] * (ABNORMAL) COMPREHENSIVE METABOLIC PANEL (01/23/2018 1:48 PM CDT) SODIUM 140 136 - 145 mmol/L 01/23/2018 3:30 PM CDT [facility] LABORATORY SERVICES - . [facility] POTASSIUM 4.3 3.5 - 5.0 mmol/L 01/23/2018 3:30 PM CDT [facility] LABORATORY SERVICES - [facility] CHLORIDE 102 98 - 107 mmol/L 01/23/2018 3:30 PM CDT [facility]ORATORY SERVICES - [facility] CO2 24 22 - 29 mmol/L 01/23/2018 3:30 PM CDT [facility] LABORATORY SERVICES - [facility] CALCIUM 10.2 8.6 - 10.2 mg/dL 01/23/2018 3:30 PM CDT [facility] LABORATORY SERVICES - . [facility] BUN 14 8 - 23 mg/dL 01/23/2018 3:30 PM CDT [facility] LABORATORY SERVICES - [facility] CREATININE 0.79 0.51 - 0.95 mg/dL 01/23/2018 3:30 PM CDT [facility] LABORATORY SERVICES - [facility] Comment: The GFR result is not clinically significant on patients <18 or >70 years of age. GLUCOSE 100(H) 74 - 99 mg/dL 01/23/2018 3:30 PM CDT [facility] LABORATORY SERVICES - [facility] TOTAL PROTEIN 6.2(L) 6.7 - 8.6 g/dL 01/23/2018 3:30 PM CDT [facility] LABORATORY SERVICES - [facility] ALBUMIN 3.9 3.5 - 5.2 g/dL 01/23/2018 3:30 PM CDT [facility] LABORATORY SERVICES - [facility] BILIRUBIN TOTAL 0.2 0.2 - 1.1 mg/dL 01/23/2018 3:30 PM CDT [facility] LABORATORY SERVICES - [facility] ALKALINE PHOSPHATASE 76 35 - 104 U/L 01/23/2018 3:30 PM CDT [facility] LABORATORY SERVICES - . [facility] AST 18 <33 U/L 01/23/2018 3:30 PM CDT [facility] LABORATORY SERVICES - . [facility] ALT 13 <34 U/L 01/23/2018 3:30 PM CDT [facility] LABORATORY SERVICES - . [facility] GFR >60 mL/min/1.7 3 sq meter 01/23/2018 3:30 PM CDT [facility] LABORATORY SERVICES - [facility] Comment: eGFR has not been [...] result. GFR, >60 mL/min/1.7 3 sq meter 01/23/2018 3:30 PM CDT [facility] LABORATORY [facility] ANION GAP 14 8 - 16 mmol/L 01/23/2018 3:30 PM CDT [facility] Blood Venipuncture / Unknown 01/23/2018 1:48 PM CDT 01/23/2018 2:17 PM CDT Narrative [facility] - 01/23/2018 3:30 PM CDT Samples containing indocyanine green cause interferences on Total and/or Direct Bilirubin and must not be measured. Yuliya Ibarra MD CHEMISTRY ORDERABLES [facility] [employer] [facility] CLIA# [id number] [address] [place] [address] * (ABNORMAL) TSH (01/23/2018 1:48 PM CDT) TSH 10.34(H) 0.27 - 4.20 uIU/mL 01/23/2018 3:35 PM CDT [facility] [employer] [facility]AT[facility] Blood Venipuncture / Unknown 01/23/2018 1:48 PM CDT 01/23/2018 2:17 PM CDT Yuliya Ibarra MD CHEMISTRY ORDERABLES [facility] CLIA# [id number] [address] [place] [address] documented in this encounter Visit Diagnoses Diagnosis Multiple thyroid nodules Nontoxic multinodular goiter Subclinical hypothyroidism Other specified acquired hypothyroidism Type 2 diabetes mellitus without complication, without long-term current use of insulin documented in this encounter Care Teams Diabetes Educator Relationship Specialty Start Date End Date Jarrell Garrison MD PCP - General Geriatric Medicine 06/21/16 08/13/18 documented as of this encounter
--- OUTSIDE RECORDS SUMMARY | 2024-05-26 13:16 | XMS_ITS | Encounter Summary ---
Author Organization [facility] Address [address] [place] [address] Care Team Providers Care Set Off Press Operator Name Role Phone Jarrell Garrison MD Primary Care Provider [phone] Reason for Visit * Reason Comments Diabetes Encounter Details Date Type Department Care Team (Latest Contact Info) Description 06/21/2016 10:30 AM MERCHANT MARINER Office Visit [facility] Endocrinology [address] [place] [address] Yuliya Ibarra MD [address] [place] [address] Type 2 diabetes mellitus without complication, without long-term current use of insulin (Primary Dx); Multiple thyroid nodules; Hypercalcemia; Primary hyperparathyroidism Social History Tobacco Use Types Packs/Day Years [...] Sign Reading Time Taken Comments Blood Pressure 104/68 06/21/2016 10:30 AM MERCHANT MARINER Pulse 62 06/21/2016 10:30 AM MERCHANT MARINER Temperature - - Respiratory Rate - - Oxygen Saturation - - Inhaled Oxygen Concentration - - Weight 93.4 kg (206 lb) 06/21/2016 10:30 AM MERCHANT MARINER Height 165.1 cm (5' 5 ) 06/21/2016 10:30 AM MERCHANT MARINER Body Mass Index 34.28 06/21/2016 10:30 AM MERCHANT MARINER documented in this encounter Progress Notes * Yuliya Ibarra MD - 06/21/2016 10:38 AM CST [facility] Endocrinology Yuliya Ibarra M.D. PCP: Dr. Julian Payne Patient Case Manager: Dr. Alexandre Reese Neurologist: Dr. Nelson Ross Vascular Tech: Dr. Krishan Moran Vascular Surgeon: Dr. Elle Landaverde Commercial Roofing Estimator: Dr. Laz Valencia Shore Working Supervisor: Dr. Phuong Callejas Reason for visit: DM follow-up. Subjective: Perla Leon is a 75 y.o. female with multiple medical problems, who presents to clinic for DM, thyroid nodules, hypercalcemia, atrial fibrillation, follow-up. Having more issues with A-fib, following up w/ her concrete block molder. Patient was diagnosed with multiple thyroid nodules via ultrasound. Her thyroid ultrasound was in October/2013 revealing small thyroid nodules/cysts, f/u ultrasound, done on 02/2015 confirmed small cysts. Patient denies changes in her neck size, dysphagia, voice changes, exposure to radiation treatments. DM regimen: currently on Glimepiride 1.5 mg in am, 2 mg with lunch and 2.5 mg with dinner, Januvia 100 mg daily, Levemir 12 units qhs, Jardiance 10 mg daily. Sugars are controlled at this time. She is staying well hydrated. Could not tolerate Metformin secondary to diarrhea. Checks her blood sugars 2 times daily, reviewed patient's numbers. Mostly controlled, few numbers in 70's. Glucometer: has one. Last eye exam: 3 months ago - has glaucoma. No hypoglycemia. Goes to a judicial reporter. 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 Her DEXA scan revealed osteopenia and she was found to have normal urine calcium level. Patient is taking Triamterene/ HCTZ for her legswelling. She denies having problems with high calcium in the past, denies nephrolithiasis, admits to memory issues. Recent Ca was 10.3. She was found to be hypokalemic, started on potassium supplements, takes KCL 40 mEq daily and her last potassium level was normal Using a walker. Review of Systems: Endo/Gen: Her weight has been increasing. She: denies polyuria/polydipsia/nocturia, denies blurred vision. Her [...] seizures, tremors Psych: denies memory/orientation/mood problems Extr: + swelling, decreased ROM All other review of systems negative Medications: Current Outpatient Prescriptions Medication Sig Dispense Refill ??? potassium chloride (KLOR-CON) 10 mEq Extended Release tablet TAKE 4 TABLETS DAILY WITH BREAKFAST 360 Tablet 0 ??? JANUVIA 100 mg Tablet TAKE 1 TABLET DAILY WITH BREAKFAST 90 Tablet 0 ??? glimepiride (AMARYL) 1 mg tablet TAKE 1 AND A HALF TABS WITH BREAKFAST TAKE 2 TABLET AT LUNCH AND TAKE 2 1/2 TABLET AT DINNER. 540 Tablet 0 ??? Insulin [place], Disposable, (Maddi Pen Needle) 32 gauge x 5/32 Needle To use one daily DX E11.65. 100 Each 1 ??? LEVEMIR FLEXTOUCH 100 unit/mL (3 mL) pen syringe INJECT 10 UNITS SUBCUTANEOUSLY DAILY IN IN THEMORNING . 15 mL 4 ??? FREESTYLE LITE STRIPS Strip TEST BLOOD SUGARS TWICE A DAY 200 Strip 1 ??? bimatoprost (LUMIGAN) 0.01 % solution 1 [...] Years of education: N/A Occupational History ??? [employer] Social History Main Topics ??? Smoking status: Never Smoker ??? Smokeless tobacco: Not on file ??? Alcohol use No ??? Drug use: No ??? Sexual activity: Not on file Comment: hyst Other Topics Concern ??? Not on file Social History Narrative Family medical history: Family History Problem Relation Age of Onset ??? Breast Cancer Mother ??? Hypertension Brother ??? High Cholesterol Brother Medical History: Past Medical History Diagnosis Date ??? Arthritis hands and back ??? Asthma ??? Cancer skin ??? CVD (cerebrovascular disease) 9969-4664 TIA x2 ??? Diabetes no medication at [...] disorder 2001 after stroke-none since ??? Shingles [id number] x3 ??? Spondylolisthesis l4-l5 Patient Active Problem List Diagnosis Code ? ? ssc, a&p, no sling N99.3 ??? Multiple thyroid nodules E04.2 ??? Diabetes mellitus type II, uncontrolled E11.65 ??? Hypercalcemia E83.52 Past Surgical History Procedure Laterality Date ??? Hx cholecystectomy 1998 ??? Hx hysterectomy 1985 ??? Hx surgical other 1975 ulcer removed from vocal cord ??? Hx hernia repair 2009- ne ??? Hx knee arthroscopy 4411-7233 right knee ??? Hx heart catheterization 2002 dr. Valencia ??? Hx surgical other 1984 surgery for broken nose ??? Pr repr vaginal prolapse,sacrosp lig 09/10/2010 SACROSPINOUS LIGAMENT FIXATION performed by FRANKLYN PACK at [facility] ??? Pr anter colporrhaphy,blad/vagina 09/10/2010 CYSTOCELE REPAIR performed by FRANKLYN PACK at [facility] ??? Hx surgical other 09/10/2010 ANTERIOR POSTERIOR REPAIR performed by FRANKLYN PACK at [facility] ??? Pr repair of perineum,non obstetrical 09/10/2010 PERINEOPLASTY performed by FRANKLYN PACK at [facility] ??? Pr post colporrhaphy,rectum/vagina 09/10/2010 RECTOCELE REPAIR performed by FRANKLYN PACK at [facility] ??? Pr repair enterocele,vag apprch 09/10/2010 ENTEROCELE REPAIR VAGINAL APPROACH performed by FRANKLYN PACK at [facility] Physical Findings: Wt Readings from Last 3 Encounters: 06/21/16 93.4 kg (206 lb) 01/19/16 92.5 kg (204 lb) 09/22/15 92.5 kg (204 lb) Visit Vitals ??? BP 104/68 ??? Pulse 62 ??? Ht 5' 5 (1.651 m) ??? Wt 93.4 kg (206 lb) ??? BMI 34.28 kg/m2 Normal blood pressure Physical Exam: General appearance: [...] normal, wearing compression stockings. Neuro: No tremor, reflexes were 2+ with a normal return phase. Psych: mood and affect appropriate. Lab: Component Latest Ref Rng 08/18/2015 08/18/2015 08/18/2015 [...] A1C 192 177 Labs via care everywhere: Hga1C - 6.6% - done on 06/13/16 Creatinine 0.81 Calcium 10.3 TSH 4.45 Reviewed [facility] lab result done on 04/19/14 [...] Lab Results Component Value Date/Time SODIUM 144 01/19/2016 10:52 AM SODIUM 142 01/06/2015 12:18 PM SODIUM 136 12/07/2014 10:40 AM SODIUM 142 11/17/2013 03:36 PM SODIUM 140 04/28/2013 03:24 PM POTASSIUM 4.0 01/19/2016 10:52 AM POTASSIUM 4.4 01/06/2015 12:18 PM POTASSIUM 3.2 (L) 12/07/2014 10:40 AM POTASSIUM 3.9 11/17/2013 03:36 PM POTASSIUM 3.9 04/28/2013 03:24 PM CHLORIDE 106 01/19/2016 10:52 AM CHLORIDE 104 01/06/2015 12:18 PM CHLORIDE 99 12/07/2014 10:40 AM CHLORIDE 106 11/17/2013 03:36 PM CHLORIDE 101 04/28/2013 03:24 PM CO2 25 01/19/2016 10:52 AM CO2 26 01/06/2015 12:18 PM CO2 26 12/07/2014 10:40 AM CO2 28 11/17/2013 03:36 PM CO2 27 04/28/2013 03:24 PM BUN 23 01/19/2016 10:52 AM BUN 17 01/06/2015 12:18 PM BUN 20 12/07/2014 10:40 AM BUN 21 (H) 11/17/2013 03:36 PM BUN 20 04/28/2013 03:24 PM GLUCOSE 104 (H) 01/19/2016 10:52 AM GLUCOSE 158 (H) 01/06/2015 12:18 PM GLUCOSE 188 (H) 12/07/2014 10:40 AM GLUCOSE 139 (H) 11/17/2013 03:36 PM GLUCOSE 231 (H) 04/28/2013 03:24 PM Lab Results Component Value Date/Time CREATININE 0.96 (H) 01/19/2016 10:52 AM CREATININE 0.87 01/06/2015 12:18 PM CREATININE 0.82 12/07/2014 10:40 AM CREATININE 0.86 11/17/2013 03:36 PM CREATININE 0.84 04/28/2013 03:24 PM Lab Results Component Value Date/Time TSH 5.89 (H) 01/19/2016 10:52 AM TSH [...] with her. Improved blood glucose. Continue current medications. Patient was asked to monitor blood sugars and write down how much diabetic meds taken/accucheck time/special circumstances Diabetes plan reviewed with patient. Will repeat HgA1C in 3 months. 2. Hypercalcemia - Most likely primary hyperparathyroidism. Stable calcium. Discussed hypercalcemia management and most likely etiology, needs to stay well hydrated. Conservative management. Check BMP before next visit. 3. Hypokalemia - takes HCTZ, KCL 40 mEq daily. Last K 3.6 4. Thyroid nodules - stable, small cystic. Last ultrasound was done in 02/2015. Subclinical hypothyroidism. Slightly high TSH, no treatment required at this time w/ h/o atrial fibrillation. Patient is to call if experiences increase in her neck size/dysphagia/dyspnea/voice changes/tremors/palpitations or other problems arise. Follow-up in 3-4 months when available. >15 min of this 25 min visit was discussion/counseling. I would like to thank you for allowing me to participate in this patient's care, if you have any questions regarding my recommendations please do not hesitate to contact me at any time. Sincerely, Yuliya Ibarra MD HANT MARINER documented in this encounter Plan of Treatment Upcoming Encounters Date Type Department Care Team (Late st Contact Info) Description 07/12/2024 2:30 PM MERCHANT MARINER Office Visit [facility] Oncology and Hematology - [place] [address] [facility] [address] [place] [address] Ovidio Nolen MD [address] [facility] [address] [place] [address] documented as of this encounter Visit Diagnoses Diagnosis Type 2 diabetes mellitus without complication, without long-term current use of insulin- Primary Multiple thyroid nodules Nontoxic multinodular goiter Hypercalcemia Primary hyperparathyroidism documented in this encounter Care Teams Set Off Press Operator Relationship Specialty Start Date End Date Jarrell Garrison MD PCP - General Geriatric Medicine 06/21/16 08/13/18 documented as of this encounter
--- OUTSIDE RECORDS SUMMARY | 2024-05-26 13:16 | XMS_ITS | Encounter Summary ---
Author Organization [facility] Address [address] [place] [address] Care Team Providers Care Sales Representative Church Furniture Name Role Phone Jarrell Garrison MD Primary Care Provider [phone] Encounter Details Date Type Department Care Team (Late st Contact Info) Description 06/18/2017 Orders Only [facility] Endocrinology [address] [facility] [address] [facility] [place] [address] Provider, Abstract NO ADDRESS ON FILE Social [...] st Contact Info) Description 07/12/2024 2:30 PM DEVELOPER EVANGELIST Office Visit [facility] Oncology and Hematology - [place] [address] [facility] [address] [place] [address] Ovidio Nolen MD [address] [facility] [address] [place] [address] documented as of this encounter Procedures Procedure Name Priority Date/Time Associated Diagnosis Comments MISCELLANEOUS LAB TEST Routine 06/13/2017 documented in this encounter Results * MISCELLANEOUS LAB TEST (06/13/2017) Abstract Provider CHEMISTRY ORDERABLES [facility] documented in this encounter Visit Diagnoses Not on filedocumented in this encounter Care Teams Sales Representative [employer] Furn[employer] Relationship Specialty Start Date End Date Jarrell Garrison MD PCP - General Geriatric Medicine 06/21/16 08/13/18 documented as of this encounter
--- OUTSIDE RECORDS SUMMARY | 2024-05-26 13:16 | XMS_ITS | Encounter Summary ---
Author Organization [facility] Address [address] [place] [address] Care Team Providers Care Editor Continuity And Script Name Role Phone Julian Payne MD Primary Care Provider [phone] Reason for Visit * Reason Onset Date Comments Diabetes 10/26/2015 bs log 10/06 to no change Encounter Details Date Type Department Care Team (Late st Contact Info) Description 10/26/2015 Patient Outreach [facility] Endocrinology [address] [place] [address] Yuliya Ibarra MD [address] [place] [address] Diabetes (bs log 10/06 to 10/20/15 no change) Social History Tobacco Use Types Packs/Day Years Used Date Smoking Tobacco: Never Alcohol Use Standard Drinks/Week Comments No 0 (1 standard drink = 0.6 oz pur e alcohol) Sex and Gender Information Value Date Recorded Sex Assigned at Not on file Gender Identity Not on file Sexual Orientation Not on file documented as of this encounter Miscellaneous Notes * Telephone Encounter - Isidra Baker RMA - 10/26/2015 9:36 AM CDT Pt voiced understanding of no change to bs log 10/06 to 10/20/15, scanned. documented in this encounter Plan of Treatment Upcoming Encounters Date Type Department Care Team (Late st Contact Info) Description 07/12/2024 2:30 PM SHOWROOM SALES CONSULTANT Office Visit [facility] Oncology and Hematology - [place] [address] [facility] [address] [place] [address] Ovidio Nolen MD [address] [facility] [address] [place] [address] documented as of this encounter Visit Diagnoses Not on filedocumented in this encounter Care Teams Editor Continuity And Script Relationship Specialty Start Date End Date Julian Payne MD PCP - General Internal Medicine 06/23/15 06/20/16 documented as of this encounter
--- OUTSIDE RECORDS SUMMARY | 2024-05-26 13:16 | XMS_ITS | Encounter Summary ---
Author Organization [facility] Address [address] [place] [address] Care Team Providers Care Action Installer Name Role Phone Jarrell Garrison MD Primary Care Provider [phone] Reason for Visit * Reason Onset Date Comments Results 11/26/2017 bx fna Encounter Details Date Type Department Care Team (Late st Contact Info) Description 11/26/2017 Telephone [facility] Endocrinology [address] [place] [address] Yuliya Ibarra MD [address] [place] [address] Results (bx fna) Social History Tobacco Use Types Packs/Day Years [...] * Telephone Encounter - Kati Quintero - 11/26/2017 10:53 AM CDT Spoke to pt and informed of results. * Telephone Encounter - Kati Quintero - 11/26/2017 10:38 AM CDT ----- Message from Yuliya Ibarra MD sent at 11/26/2017 8:57 AM CDT ----- Good news- her biopsy results are benign. I will see her as scheduled. documented in this encounter Plan of Treatment Upcoming Encounters Date Type Department Care Team (Late st Contact Info) Description 07/12/2024 2:30 PM SLAT BASKET MAKER HELPER Office Visit [facility] Oncology and Hematology - [place] [address] [facility] [address] [place] [address] Ovidio Nolen MD [address] [facility] [address] [place] [address] documented as of this encounter Visit Diagnoses Not on filedocumented in this encounter Care Teams Action Installer Relationship Specialty Start Date End Date Jarrell Garrison MD PCP - General Geriatric Medicine 06/21/16 08/13/18 documented as of this encounter
--- OUTSIDE RECORDS SUMMARY | 2024-05-26 13:16 | XMS_ITS | Encounter Summary ---
Author Organization [facility] Address [address] [place] [address] Care Team Providers Care Preformer [employer] Name Role Phone Jarrell Garrison MD Primary Care Provider [phone] Reason for Visit * Reason Comments Knee Pain Pt has pain behind l eft knee onset Friday. Pt reports unable to stand on it. Denies injury. Denies hx DVT. +pedal pulse. +BLE edema unchanged per pt. Encounter Details Date Type Department Care Team (Late st Contact Info) Description 04/18/2017 7:31 PM DIGITAL ENGINEER - 04/18/2017 9:02 PM DIGITAL ENGINEER Emergency [facility] Emergency Department [address] [place] [address] Darnell Reynolds MD [address] [facility] [place] [address] Acute pain of left knee (Primary Dx) Discharge Disposition: Home or Self Care Social [...] Sign Reading Time Taken Comments Blood Pressure 141/56 04/18/2017 8:57 PM DIGITAL ENGINEER Pulse - - Temperature 36.7 ??C (98 ??F) 04/18/2017 7:25 PM DIGITAL ENGINEER Respiratory Rate 16 04/18/2017 8:57 PM DIGITAL ENGINEER Oxygen Saturation 94% 04/18/2017 8:57 PM DIGITAL ENGINEER Inhaled Oxygen Concentration - - Weight 92.5 kg (204 lb) 04/18/2017 7:29 PM DIGITAL ENGINEER Height 165.1 cm (5' 5 ) 04/18/2017 7:29 PM DIGITAL ENGINEER Body Mass Index 33.95 04/18/2017 7:29 PM DIGITAL ENGINEER documented in this encounter Discharge Instructions * Discharge Instructions* Darnell Reynolds MD - 04/18/2017 8:36 PM DIGITAL ENGINEER Use knee immobilizer for comfort Take medications as prescribed. Follow up with the orthopedic surgeon listed TAL ENGINEER documented in this encounter Medications at Time of Discharge Medication Sig Dispensed Refills Start Date End Date potassium chloride (KLOR-CON) 10 mEq Extended Release [...] Indications: instructed to stop prior to surgery blood sugar diagnostic (FREESTYLE LITE STRIPS) Strip [...] ONCE DAILY 100 Each 3 11/08/2016 01/13/2018 levothyroxine 25 mcg tablet Take 1 Tablet (25 mcg) by mouth daily machine fitter. 30 Tablet 2 10/04/2016 05/02/2017 documented as of this encounter ED Notes * Jeromy Ortiz RN - 04/18/2017 9:00 PM CST Pt provided discharge instructions, verbalizes understanding of instructions. Pt is A&O x4, resps even and unlabored, ambulatory w/ steady gait. Provided wheelchair for transport to vehicle. TAL ENGINEER * Jeromy Ortiz RN - 04/18/2017 8:[address] Reynolds at bedside. TAL ENGINEER * eJromy Ortiz RN - 04/18/2017 8:05 PM CST Pt to ED for reports of L posterior knee pain. Pt reports that on Friday she experienced pain in the back of her knee and it has gotten worse since. Pt reports that her pain has caused decreased mobility in her L leg. Pt rates pain as 10/10. Pt's bilateral feet are swollen and edematous. Pt reports this is chronic for her and reports taking diuretics. Pt also states she is mildly SOB but not worse than usual. Pt is A&O x4, resps even and unlabored, in NAD. Pt denies CP. TAL ENGINEER * Jeromy Ortiz RN - 04/18/2017 7:56 PM CST Wolf at bedside. TAL ENGINEER * Darnell Reynolds MD - 04/18/2017 7:17 PM CST HISTORY OF PRESENT ILLNESS Perla Leon, a 76 y.o. female presents to the ED with a Chief Complaint of Knee Pain Subjective 7:38 PM: Perla Leon is a 76 y.o. female with a history of CD, asthma, diabetes, HTN, hyperlipidemia, and PVD, who presents to the Emergency Department with complaints of left posterior knee pain that began 6 days ago. She reports movement worsens her pain, she states she is unable to stand on it. Patient reports chronic bilateral leg swelling, which has been unchanged recently. Patient takes Plavix. She denies trauma or injury. She denies taking pain medication at home. Physician(s): Jarrell Garrison MD History provided by: The patient Arrived by: Private vehicle Arrived from: Home Knee Pain Location: Knee Injury: no Knee location: L knee Pain details: Quality: Unable to specify Severity: Moderate Onset quality: Gradual Duration: 6 days Timing: Constant Associated symptoms: no back pain and no fever REVIEW OF SYSTEMS Review of Systems Constitutional: Negative for diaphoresis and fever. HENT: Negative for facial swelling and nosebleeds. Eyes: Negative for pain and discharge. Respiratory: Negative for cough, choking and wheezing. Cardiovascular: Negative for leg swelling. Gastrointestinal: Negative for abdominal pain, diarrhea and nausea. Genitourinary: Negative for decreased urine volume, difficulty urinating and dysuria. Musculoskeletal: Positive for arthralgias (left knee pain x6 days; worse with movement) and gait problem (cannot stand on left leg secondary to pain). Negative for back pain and neck stiffness. Skin: Negative for pallor and rash. Neurological: Negative for dizziness, syncope and weakness. Psychiatric/Behavioral: Negative for agitation, sleep disturbance and suicidal ideas. The patient is not nervous/anxious. All other systems reviewed and are negative. PAST MEDICAL HISTORY REVIEWED MEDICAL: Patient has a past medical history of Arthritis; Asthma; Cancer; CVD (cerebrovascular disease) (1851-8820); Diabetes; Duodenal ulcer (1977); Familial spastic paraplegia (1979); GERD (gastroesophagealreflux disease); Glaucoma; Hard of hearing; Heart murmur; HTN (hypertension); Hyperlipidemia; IBS (irritable bowel syndrome); Ischemia of heart, chronic; Obstructive sleep apnea (adult) (pediatric); Pneumonia; PVD (peripheral vascular disease); Seizure disorder (2000); Shingles ([id number]); and Spondylolisthesis. She also has no past medical history of Hemorrhagic diathesis; Latex sensitivity; Malignant hyperthermia; Temporomandibular joint disorders, unspecified; or Unspecified adverse effect of anesthesia. SURGICAL: Patient has a past surgical history that includes hx cholecystectomy (1997); hx hysterectomy (1985); hx surgical other (1974); hx hernia repair (2009-); hx knee arthroscopy ([id number]); hx heart catheterization (2002); hx surgical other (1984); pr repr vaginal prolapse,sacrosp lig (09/10/2010); pr anter colporrhaphy,blad/vagina (09/10/2010); hx surgical other (09/10/2010); pr repair of perineum,non obstetrical (09/10/2010); pr post colporrhaphy,rectum/vagina (09/10/2010); and pr repair enterocele,vag apprch (09/10/2010). FAMILY: Patient's family history includes Breast Cancer in her mother; High Cholesterol in her brother; Hypertension in her brother. SOCIAL: reports that she has never smoked. She does not have any smokeless tobacco history on file. She reports that she does not drink alcohol or use drugs. No history on file. Social History Other Topics Concern ??? Not on file PROBLEM LIST: Patient has ssc, a&p, no sling; Multiple thyroid nodules; Hypercalcemia; and Type 2 diabetes mellitus without complication, without long-term current use of insulin on her problem list. ALLERGIES Advair diskus [fluticasone-salmeterol]; Aricept [donepezil]; Diltiazem; and Latex HOME MEDICATIONS Discharge Medication List as of 04/18/2017 8:36 PM START taking these medications Details naproxen (NAPROSYN) 500 mg tablet Take 1 Tablet (500 mg) by mouth 2 times daily with meals., Disp-18 Tablet, R-None CONTINUE these medications which have NOT CHANGED Details potassium chloride (KLOR-CON) 10 mEq Extended Release tablet TAKE 4 TABLETS DAILY WITH BREAKFAST, Disp-360 Tablet, R-0 blood sugar diagnostic (FREESTYLE LITE STRIPS) Strip TEST BLOOD SUGARS TWICE A DAY Dx E11.9., Disp-200 Strip, R-1 insulin detemir (LEVEMIR FLEXTOUCH) 100 unit/mL pen syringe : INJECT 8 UNITS SUBCUTANEOUSLY DAILY IN IN THE MORNING.Dose changedDisp-15 mL, R-2 glimepiride (AMARYL) 1 mg tablet TAKE ONE AND ONE-HALF TABLETS WITH BREAKFAST, TWO TABLETS AT LUNCH, AND TWO AND ONE-HALF TABLETS AT DINNER, Disp-540 Tablet, R-1 JANUVIA 100 mg Tablet TAKE 1 TABLET DAILY WITH BREAKFAST, Disp-90 Tablet, R-1 HAYDEN PEN NEEDLE 32 gauge x 5/32 Needle USE TO INJECT INSULIN ONCE DAILYDx code E11.9Disp-100 Each,R-3 levothyroxine 25 mcg tablet Take 1 Tablet (25 mcg) by mouth daily machine fitter., Disp-30 Tablet, R-2 bimatoprost (LUMIGAN) 0.01 % solution 1 Drop daily at bedtime. HYPROMELLOSE (SYSTANE GEL OP) by Ophthalmic route. PRN lancets (FREESTYLE LANCETS) 28 gauge 100 Each by [facility]Non-Drug; Combo Route) route daily. Dx code 250.02, Disp-100 Each, R-6 IPRATROPIUM BROMIDE INHALATION Take by inhalation 2 times daily. esomeprazole (NEXIUM) 40 mg Oral CpDR Take 40 mg by mouth daily before breakfast. triamterene-hydrochlorothiazide (MAXZIDE) 75-50 mg Oral tablet Take 1 Tab by mouth daily. amitriptyline (ELAVIL) 50 mg Oral tablet Take 50 mg by mouth daily at bedtime. clopidogrel (PLAVIX) 75 mg Oral Tab Take 75 mg by mouth Daily LATE. Indications: to check with PMD per dr flores rosuvastatin (CRESTOR) 10 mg Oral tablet Take 10 mg by mouth daily at bedtime. cyanocobalamin (VITAMIN B-12) 1,000 mcg Oral Tab Take 1,000 mcg by mouth daily. multivitamin (DAILY-BRYON) Oral tablet Take 1 Tab by mouth daily. Indications: instructed to stop prior to surgery albuterol (PROVENTIL,VENTOLIN) 90 mcg/Actuation Inhalation Aero Take by inhalation every 6 hours asneeded. Indications: hasn't used in one year Objective PHYSICAL EXAM INITIAL VS BP: 134/54 (04/18/171924), Heart Rate: 86 bpm (04/18/171924), Resp: 16 (04/18/171924), Temp: 98 ??F (36.7 ??C) (04/18/171924), Temp src: Oral (04/18/171924), SpO2: 92 % (04/18/171924), Height: 5' 5 (165.1 cm) (04/18/171928), Weight: 92.5 kg (204 lb) (04/18/171928), BMI (Calculated): 33.95 ( 04/18/171928) No LMP recorded. Patient has had a hysterectomy. Physical Exam Constitutional: She appears well-developed and well-nourished. No distress. HENT: Head: Normocephalic and atraumatic. Mouth/Throat: No oropharyngeal exudate. Eyes: No scleral icterus. Neck: No tracheal deviation present. Cardiovascular: Normal rate, regular rhythm, normal heart sounds and intact distal pulses. Exam reveals no gallop and no friction rub. No murmur heard. Pulmonary/Chest: No respiratory distress. She has no wheezes. She has no rales. She exhibits no tenderness. Abdominal: Soft. Bowel sounds are normal. She exhibits no distension and no mass. There is no tenderness. There is no rebound and no guarding. Musculoskeletal: She exhibits edema (mild, lower legs bilaterally). No tenderness to palpation of knee. No cord felt in the leg. No erythema or warmth to the left leg.Pain with attempted ROM of the left knee. Lymphadenopathy: She has no cervical adenopathy. Neurological: She is alert. Skin: No rash noted. She is not diaphoretic. No erythema. Psychiatric: Judgment normal. Nursing note and vitals reviewed. DIAGNOSTICS LAB: CBC WITH DIFFERENTIAL - Abnormal Result Value HEMOGLOBIN 10.9 (*) MCV 76.6 (*) MCH 23.1 (*) MCHC 30.2 (*) RDW 18.6 (*) RDW-STDEV 50.8 (*) PLATELETS 366 (*) IMMATURE GRANULOCYTES ABSOLUTE 0.04 (*) WBC 9.6 RBC 4.71 HEMATOCRIT 36.1 MPV 10.7 NEUTROPHILS 72 LYMPHOCYTES 14 MONOCYTES 11 EOSINOPHILS 2 BASOPHILS 1 IMMATURE GRANULOCYTES 0 NEUTROPHIL ABSOLUTE 6.92 LYMPHOCYTE ABSOLUTE 1.36 MONOCYTE ABSOLUTE 1.08 EOSINOPHIL ABSOLUTE 0.17 BASOPHILS ABSOLUTE 0.05 D-DIMER - Normal D-DIMER QUANT 0.33 RADIOLOGY: XR KNEE 3 VW LEFT Radiologist Impression IMPRESSION: 1. No acute abnormality. EKG: PROCEDURES Procedures MEDICAL DECISION MAKING AND PLAN OF CARE MDM Summary Statement: Patient has had pain behind the knee. Differential diagnosis includes, but is not limited to, fracture, arthritis, DVT, septic joint. X-ray was unremarkable. Her d-dimer is negative and I feel DVT can be excluded. She was given antipyretic current medications she felt improved after Toradol given in the emergency room. I have reviewed previous: notes and labs I have reviewed current: imaging and labs I have reviewed nursing notes related to past medical history, social history, and review of systems and agree, unless otherwise noted. ED Course REEVALUATION 8:40 PM: Updated pt on their lab and x-ray results. Patient will be discharged home in knee-immobilizer with Rx for naprosyn. Recommended follow up with orthopedics. RTER with worsening sx. Pt understands and agrees with the plan. All questions and concerns addressed. The patient is stable for discharge. ED provider and ED nurse verbally discussed patient plan of care at this time. CASE DISCUSSED Medications Administered During the ED Stay from 04/18/2017 1917 to 04/18/20176 Date/Time Order Dose Route Action 04/18/20172004 ketorolac (TORADOL) injection 30 mg 30 mg IV Given Discharge Medication List as of 04/18/2017 8:36 PM START taking these medications Details naproxen (NAPROSYN) 500 mg tablet Take 1 Tablet (500 mg) by mouth 2 times daily with meals., Disp-18 Tablet, R-None CONTINUE these medications which have NOT CHANGED Details potassium chloride (KLOR-CON) 10 mEq Extended Release tablet TAKE 4 TABLETS DAILY WITH BREAKFAST, Disp-360 Tablet, R-0 blood sugar diagnostic (FREESTYLE LITE STRIPS) Strip TEST BLOOD SUGARS TWICE A DAY Dx E11.9., Disp-200 Strip, R-1 insulin detemir (LEVEMIR FLEXTOUCH) 100 unit/mL pen syringe : INJECT 8 UNITS SUBCUTANEOUSLY DAILY IN IN THE MORNING.Dose changedDisp-15 mL, R-2 glimepiride (AMARYL) 1 mg tablet TAKE ONE AND ONE-HALF TABLETS WITH BREAKFAST, TWO TABLETS AT LUNCH, AND TWO AND ONE-HALF TABLETS AT DINNER, Disp-540 Tablet, R-1 JANUVIA 100 mg Tablet TAKE 1 TABLET DAILY WITH BREAKFAST, Disp-90 Tablet, R-1 HAYDEN PEN NEEDLE 32 gauge x 5/32 Needle USE TO INJECT INSULIN ONCE DAILYDx code E11.9Disp-100 Each,R-3 levothyroxine 25 mcg tablet Take 1 Tablet (25 mcg) by mouth daily machine fitter., Disp-30 Tablet, R-2 bimatoprost (LUMIGAN) 0.01 % solution 1 Drop daily at bedtime. HYPROMELLOSE (SYSTANE GEL OP) by Ophthalmic route. PRN lancets (FREESTYLE LANCETS) 28 gauge 100 Each by Misc.(Non-Drug; Combo Route) route daily. Dx code 250.02, Disp-100 Each, R-6 IPRATROPIUM BROMIDE INHALATION Take by inhalation 2 times daily. esomeprazole (NEXIUM) 40 mg Oral CpDR Take 40 mg by mouth daily before breakfast. triamterene-hydrochlorothiazide (MAXZIDE) 75-50 mg Oral tablet Take 1 Tab by mouth daily. amitriptyline (ELAVIL) 50 mg Oral tablet Take 50 mg by mouth daily at bedtime. clopidogrel (PLAVIX) 75 mg Oral Tab Take 75 mg by mouth Daily LATE. Indications: to check with PMD per dr flores rosuvastatin (CRESTOR) 10 mg Oral tablet Take 10 mg by mouth daily at bedtime. cyanocobalamin (VITAMIN B-12) 1,000 mcg Oral Tab Take 1,000 mcg by mouth daily. multivitamin (DAILY-BRYON) Oral tablet Take 1 Tab by mouth daily. Indications: instructed to stop prior to surgery albuterol (PROVENTIL,VENTOLIN) 90 mcg/Actuation Inhalation Aero Take by inhalation every 6 hours as needed. Indications: hasn't used in one year LAST VS BP: (!) 141/56 (04/18/172056), Heart Rate: 81 bpm (04/18/172056), Resp: 16 (04/18/172056), Temp:98 ??F (36.7 ??C) (04/18/171924), Temp src: Oral (04/18/171924), SpO2: 94 % (04/18/172056) CLINICAL IMPRESSION Final diagnoses: [M25.562] Acute pain of left knee (Primary) DISPOSITION, EDUCATION AND MEDICATION RECONCILIATION Medications reconciled. See after visit summary for patient education on discharged patients. ED Disposition ED Disposition Condition User Date/Time Comment Discharge Stable Darnell Reynolds MD FriApr 18, 2017 8:35 PM Follow up: Bonny Mccullough MD [address] [facility] [address] [facility] [address] Call in 3 days DISCHARGED HOME IN STABLE CONDITION. ATTESTATION STATEMENTS This note has been prepared by Gricel Logan acting as a scribe for Dr. Darnell Reynolds on 04/18/2017 at 8:41 PM. The scribe's documentation has been prepared under my direction and personally reviewed by me, Gail, in its entirety on 04/18/17 at 10:26 PM. I confirm that the note above accurately reflects all work, treatment, procedures, and medical decision making performed by me. TAL ENGINEER documented in this encounter Plan of Treatment Upcoming Encounters Date Type Department Care Team (Late st Contact Info) Description 07/12/2024 2:30 PM DIGITAL ENGINEER Office Visit [facility] Oncology and Hematology - [place] [address] [place] [address] Ovidio Nolen MD [address] [facility] [address] [place] [address] documented as of this encounter Procedures Procedure Name Priority Date/Time Associated Diagnosis Comments EXTRA TUBE (GREEN) Stat 04/18/2017 8: 04 PM DIGITAL ENGINEER EXTRA TUBE Stat 04/18/2017 8:04 PM DIGITAL ENGINEER CBC WITH DIFFERENTIAL Stat 04/18/2017 8:04 PM DIGITAL ENGINEER D-DIMER Stat 04/18/2017 8:04 PM DIGITAL ENGINEER XR KNEE 3 VW LEFT Stat 04/18/2017 8:0 2 PM DIGITAL ENGINEER documented in this encounter Results * EXTRA TUBE (GREEN) (04/18/2017 8:04 PM DIGITAL ENGINEER) Blood Venipuncture / Unknown 04/18/2017 8:04 PM DIGITAL ENGINEER 04/18/2017 8:11 PM DIGITAL ENGINEER Darnell Reynolds MD CHEMISTRY ORDERABLES Performing Organization Address [facility] Co de Phone Number [facility]# [id number] [address] [place] [address] * D-DIMER (04/18/2017 8:04 PM DIGITAL ENGINEER) Pathologist [facility] D-DIMER QUANT 0.33 <0.42 ug/mL FEU 04/18/2017 8:28 PM DIGITAL ENGINEER [facility] Comment: The DIC reference range is not clearly established in uncomplicated pregnancies. ??Values above the upper limit of the reference range are common from the 31st to 40th week of . ??High negative predictive values for DVT have been reported with the current methodology, as part of a comprehensive medical examination, including risk stratification. Various clinical studies utilizing this method have shown that a result of <0.5 mcg/ml FEU excludes deep vein thrombosis and pulmonary embolism with high sensitivity when used in conjunction with a non-high clinical pre-test probability assessment. Blood Venipuncture / Unknown 04/18/2017 8:04 PM DIGITAL ENGINEER 04/18/2017 8:11 PM DIGITAL ENGINEER Darnell Reynolds MD HEMATOLOGY ORDERABLE S Performing Organization Address [facility] Co de Phone Number [facility]# [id number] [address] [place] [address] * (ABNORMAL) CBC WITH DIFFERENTIAL (04/18/2017 8:04 PM DIGITAL ENGINEER) [facility] WBC 9.6 4.0 - 9.8 K/uL 04/18/2017 8:16 PM DIGITAL ENGINEER [facility] LABORATORY [facility] RBC 4.71 3.90 - 4.90 M/uL 04/18/2017 8:16 PM DIGITAL ENGINEER [facility]AT[facility] HEMOGLOBIN 10.9(L) 11.8 - 14.8 g/dL 04/18/2017 8:16 PM DIGITAL ENGINEER [facility] HEMATOCRIT 36.1 35.5 - 44.0 % 04/18/2017 8:16 PM DIGITAL ENGINEER [facility] MCV 76.6(L) 82.0 - 99.0 fL 04/18/2017 8:16 PM DIGITAL ENGINEER [facility] MCH 23.1(L) 27.2 - 32.6 pg 04/18/2017 8:16 PM DIGITAL ENGINEER [facility] MCHC 30.2(L) 31.5 - 35.5 g/dL 04/18/2017 8:16 PM DIGITAL ENGINEER [facility] RDW 18.6(H) 11.5 - 14.5 % 04/18/2017 8:16 PM DIGITAL ENGINEER [facility] RDW-STDEV 50.8(H) 37.1 - 48.7 fL 04/18/2017 8:16 PM DIGITAL ENGINEER [facility] PLATELETS 366(H) 140 - 350 K/uL 04/18/2017 8:16 PM DIGITAL ENGINEER [facility] MPV 10.7 9.3 - 12.4 fL 04/18/2017 8:16 PM DIGITAL ENGINEER [facility] NEUTROPHILS 72 % 04/18/2017 8:16 PM DIGITAL ENGINEER [facility] LYMPHOCYTES 14 % 04/18/2017 8:16 PM DIGITAL ENGINEER [facility] MONOCYTES 11 % 04/18/2017 8:16 PM DIGITAL ENGINEER [facility] EOSINOPHILS 2 % 04/18/2017 8:16 PM DIGITAL ENGINEER [facility] BASOPHILS 1 % 04/18/2017 8:16 PM DIGITAL ENGINEER [facility] IMMATURE GRANULOCYTES 0 % 04/18/2017 8:16 PM DIGITAL ENGINEER [facility] NEUTROPHIL ABSOLUTE 6.92 1.90 - 7.00 K/uL 04/18/2017 8:16 PM DIGITAL ENGINEER [facility] LYMPHOCYTE ABSOLUTE 1.36 0.70 - 4.50 K/uL 04/18/2017 8:16 PM DIGITAL ENGINEER [facility] MONOCYTE ABSOLUTE 1.08 0.10 - 1.30 K/uL 04/18/2017 8:16 PM DIGITAL ENGINEER [facility] LABORATORY SERVICES - [facility] EOSINOPHIL ABSOLUTE 0.17 0.00 - 0.70 K/uL 04/18/2017 8:16 PM DIGITAL ENGINEER [facility]ORY SERVICES - [facility] BASOPHILS ABSOLUTE 0.05 0.00 - 0.20 K/uL 04/18/2017 8:16 PM DIGITAL ENGINEER [facility] LABORATORY [facility] - [facility] IMMATURE GRANULOCYTES ABSOLUTE 0.04(H) 0.00 - 0.03 K/uL 04/18/2017 8:16 PM DIGITAL ENGINEER [facility] LABORATORY [facility] Blood Venipuncture / Unknown 04/18/2017 8:04 PM DIGITAL ENGINEER 04/18/2017 8:11 PM DIGITAL ENGINEER Darnell Reynolds MD HEMATOLOGY ORDERABLE S [facility]# [id number] [address] [place] [id number] * XR KNEE 3 VW LEFT (04/18/2017 8:02 PM DIGITAL ENGINEER) Anatomical Region Laterality Modality Lower Extremity Computed Radiogr aphy 04/18/2017 8:02 PM DIGITAL ENGINEER Impressions 04/18/2017 8:44 PM DIGITAL ENGINEER IMPRESSION: 1. No acute abnormality. Narrative 04/18/2017 8:44 PM DIGITAL ENGINEER XR KNEE 3 VW LEFT DATE: ??04/18/2017 8:02 PM HISTORY: Pain. FINDINGS: Osteopenia is present. No fracture, joint effusion, or other acute process is seen. The joint spaces are preserved. There are tiny degenerative marginal osteophytes with mild chondrocalcinosis. Procedure Note Steven Mccain MD - 04/18/2017 XR KNEE 3 VW LEFT DATE: 04/18/2017 8:02 PM HISTORY: Pain. FINDINGS: Osteopenia is present. No fracture, joint effusion, or other acute process is seen. The joint spaces are preserved. There are tiny degenerative marginal osteophytes with mild chondrocalcinosis. IMPRESSION: 1. No acute abnormality. Darnell Reynolds MD DIAGNOSTIC IMAGING O RDERABLES documented in this encounter Visit Diagnoses Diagnosis Acute pain of left knee- Primary documented in this encounter Administered Medications Inactive Administered Medications - up to 3 most recent administrations Medication Order MAR Action Action Date Dose Rate Site ketorolac (TORADOL) injection 30 mg 30 mg, IV, ONE TIME ONLY, 1 dose, On Fri04/18/17 at 1999, Routine Given 04/18/2017 8:05 PM DIGITAL ENGINEER 30 mg documented in this encounter Active and Recently Administered Medications Times are shown in DIGITAL ENGINEER. Scheduled Medication Order 04/16/2017 04/17/2017 04/18/2017 ketorolac (TORADOL) injection 30 mg (COMPLETED) 30 mg, IV, ONE TIME ONLY, 1 dose, On Fri04/18/17 at 1999, Routine 2004 (Given - Provid er: Jeromy Ortiz RN) documented in this encounter Care Teams Preformer [employer] Relationship Specialty Start Date End Date Jarrell Garrison MD PCP - General Geriatric Medicine 06/21/16 08/13/18 documented as of this encounter
--- OUTSIDE RECORDS SUMMARY | 2024-05-26 13:16 | XMS_ITS | Encounter Summary ---
Author Organization [facility] Address [address] [place] [address] Care Team Providers Care Twisting Frame Operator Name Role Phone Jarrell Garrison MD Primary Care Provider [phone] Encounter Details Date Type Department Care Team (Late st Contact Info) Description 03/11/2017 Abstract [facility] Endocrinology [address] [place] [address] Yuliya Ibarra MD [address] [place] [address] Social History Tobacco Use Types [...] Contact Info) Description 07/12/2024 2:30 PM HAND PATTERN MARKER Office Visit [facility] Oncology and Hematology - Oscar [address] [facility] [address] [place] [address] Ovidio Nolen MD [address] [facility] [address] [place] [address] documented as of this encounter Visit Diagnoses Not on filedocumented in this encounter Care Teams Twisting Frame Operator Relationship Specialty Start Date End Date Jarrell Garrison MD PCP - General Geriatric Medicine 06/21/16 08/13/18 documented as of this encounter
--- OUTSIDE RECORDS SUMMARY | 2024-05-26 13:16 | XMS_ITS | Encounter Summary ---
Author Organization [facility] Address [address] [place] [address] Care Team Providers Care Parts Puller Name Role Phone Jarrell Garrison MD Primary Care Provider [phone] Reason for Visit * Reason Onset Date Comments Medication Refill 10/21/2017 Encounter Details Date Type Department Care Team (Late st Contact Info) Description 10/21/2017 Refill [facility] Endocrinology [address] [place] [address] Yuliya Ibarra MD [address] [place] [address] Social History Tobacco Use Types [...] * Telephone Encounter - Kati Quintero - 10/21/2017 9:18 AM CDT Nov 01/23/18 galo 09/15/17 documented in this encounter Plan of Treatment Upcoming Encounters Date Type Department Care Team (Late st Contact Info) Description 07/12/2024 2:30 PM STRAIGHTENER HAND Office Visit [facility] Oncology and Hematology - Oscar [address] [facility] [address] [place] [address] Ovidio Nolen MD [address] [facility] [address] [place] [address] documented as of this encounter Visit Diagnoses Not on filedocumented in this encounter Care Teams Parts Puller Relationship Specialty Start Date End Date Jarrell Garrison MD PCP - General Geriatric Medicine 06/21/16 08/13/18 documented as of this encounter
--- OUTSIDE RECORDS SUMMARY | 2024-05-26 13:16 | XMS_ITS | Encounter Summary ---
Author Organization [facility] Address [address] [place] [address] Care Team Providers Care Ends Down Checker Name Role Phone Jarrell Garrison MD Primary Care Provider [phone] Encounter Details Date Type Department Care Team (Late Contact Info) Description 01/23/2018 Orders Only [facility] Admitting [address] [place] [address] Yuliya Ibarra MD [address] [place] [address] Social History Tobacco Use Types [...] (Late Contact Info) Description 07/12/2024 2:30 PM COSMETICIAN APPRENTICE Office Visit [facility] Oncology and Hematology - Oscar [address] [facility] [address] [place] [address] Ovidio Nolen MD [address] [facility] [address] [place] [address] documented as of this encounter Visit Diagnoses Not on filedocumented in this encounter Care Teams Ends Down Checker Relationship Specialty Start Date End Date Jarrell Garrison MD PCP - General Geriatric Medicine 06/21/16 08/13/18 documented as of this encounter
--- OUTSIDE RECORDS SUMMARY | 2024-05-26 13:16 | XMS_ITS | Encounter Summary ---
Author Organization [facility] Address [address] [place] [address] Care Team Providers Care Rescue Instructor Name Role Phone Jarrell Garrison MD Primary Care Provider [phone] Reason for Visit * Reason Comments Medication Refill Encounter Details Date Type Department Care Team (Late st Contact Info) Description 11/05/2016 Refill [facility] Endocrinology [address] [place] [address] Zak Hough MD [address] [place] [address] Social History Tobacco Use Types Packs/Day Years [...] * Telephone Encounter - Kati Quintero - 11/07/2016 5:43 PM CDT 01/17/17 10/04/16 documented in this encounter Plan of Treatment Upcoming Encounters Date Type Department Care Team (Late st Contact Info) Description 07/12/2024 2:30 PM SALON SHAMPOO ASSISTANT Office Visit [facility] Oncology and Hematology - Oscar [address] [facility] [address] [place] [address] Ovidio Nolen MD [address] [facility] [address] [place] [address] documented as of this encounter Visit Diagnoses Not on filedocumented in this encounter Care Teams Rescue Instructor Relationship Specialty Start Date End Date Jarrell Garrison MD PCP - General Geriatric Medicine 06/21/16 08/13/18 documented as of this encounter
--- OUTSIDE RECORDS SUMMARY | 2024-05-26 13:16 | XMS_ITS | Encounter Summary ---
Author Organization [facility] Address [address] [place] [address] Care Team Providers Care Guide Dog Trainer Name Role Phone Jarrell Garrison MD Primary Care Provider [phone] Reason for Visit * Reason Comments Diabetes Encounter Details Date Type Department Care Team (Late st Contact Info) Description 10/04/2016 11:30 AM CDT Office Visit [facility] Endocrinology [address] [place] [address] Yuliya Ibarra MD [address] [place] [address] Type 2 diabetes mellitus without complication, with long-term current use of insulin (Primary Dx); Subclinical hypothyroidism; Multiple thyroid nodules; Hypercalcemia Social History [...] Sign Reading Time Taken Comments Blood Pressure 124/80 10/04/2016 11:18 AM CDT Pulse 68 10/04/2016 11:18 AM CDT Temperature - - Respiratory Rate - - Oxygen Saturation - - Inhaled Oxygen Concentration - - Weight 94.8 kg (209 lb) 10/04/2016 11:18 AM CDT Height 165.1 cm (5' 5 ) 10/04/2016 11:18 AM CDT Body Mass Index 34.78 10/04/2016 11:18 AM CDT documented in this encounter Progress Notes * Yuliya Ibarra MD - 10/04/2016 11:21 AM CDT [facility] Endocrinology Yuliya Ibarra M.D. PCP: Dr. Julian Payne General Medical Practitioner: Dr. Alexandre Reese Neurologist: Dr. Nelson Ross Treating Engineer: Dr. Krishan Moran Vascular Surgeon: Dr. Elle Landaverde Blade Changer: Dr. Laz Valencia Manager Plant: Dr. Phuong Callejas Reason for visit: DM follow-up. Subjective: Perla Leon is a 75 y.o. female with multiple medical problems, who presents to clinic for DM, thyroid nodules, subclinical hypothyroidism, hypercalcemia, atrial fibrillation, follow-up. C/o weight gain, fatigue. Patient was diagnosed with multiple thyroid nodules [...] with dinner, Januvia 100 mg daily, Levemir 10 units qhs, Jardiance 10 mg daily. Sugars are controlled at this time. Her recent HgA1C was 6.3% She is staying well hydrated. Could not tolerate Metformin secondary to diarrhea. Checks her blood sugars 2 times daily, reviewed patient's numbers. Mostly controlled, few numbers in 60's. Glucometer: has one. Last eye exam: 3 months ago - has glaucoma. No hypoglycemia. Goes to a manager of selection and assessment. 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 Her DEXA scan revealed osteopenia and she was found to have normal urine calcium level. Patient is taking Triamterene/ HCTZ for her legswelling. She denies having problems with high calcium in the past, denies nephrolithiasis, admits to memory issues. She was found to be [...] Outpatient Prescriptions Medication Sig Dispense Refill ??? JANUVIA 100 mg Tablet TAKE 1 TABLET DAILY WITH BREAKFAST 90 Tablet 0 ??? potassium chloride (KLOR-CON) 10 mEq Extended Release tablet TAKE 4 TABLETS DAILY WITH BREAKFAST 360 Tablet 0 ??? glimepiride (AMARYL) 1 mg tablet TAKE ONE AND ONE-HALF TABLETS WITH BREAKFAST, TWO TABLETS AT LUNCH, AND TWO AND ONE-HALF TABLETS AT DINNER 540 Tablet 0 ??? Insulin [place], Disposable, (Maddi Pen Needle) 32 gauge x [...] LANCETS) 28 gauge 100 Each by [facility].(Non-Drug; Combo Route) route daily. [...] Years of education: N/A Occupational History ??? [employer] Social History Main Topics ??? Smoking [...] ??? Cancer skin ??? CVD (cerebrovascular disease) 6842-3746 TIA x2 ??? Diabetes no medication at [...] disorder 2001 after stroke-none since ??? Shingles [id number] x3 ??? Spondylolisthesis l4-l5 Patient Active Problem List Diagnosis Code ? ? ssc, a&p, no sling N99.3 ??? Multiple thyroid nodules E04.2 ??? Diabetes mellitus type II, uncontrolled E11.65 ??? Hypercalcemia E83.52 Past Surgical History: Procedure Laterality Date ??? HX CHOLECYSTECTOMY 1998 ??? HX HEART CATHETERIZATION 2002 dr. Valencia ??? HX HERNIA REPAIR 2009- ms ??? HX HYSTERECTOMY 1985 ??? HX KNEE ARTHROSCOPY 8744-2370 right knee ??? HX SURGICAL OTHER 1975 ulcer removed from vocal cord ??? HX SURGICAL OTHER 1985 surgery for broken nose ??? HX SURGICAL OTHER 09/10/2010 ANTERIOR POSTERIOR REPAIR performed by FRANKLYN PACK at [facility] OR MAIN ??? WA ANTER COLPORRHAPHY,BLAD/VAGINA 09/10/2010 CYSTOCELE REPAIR performed by FRANKLYN PACK at [facility] OR MAIN ??? WA POST COLPORRHAPHY,RECTUM/VAGINA 09/10/2010 RECTOCELE REPAIR performed by FRANKLYN PACK at [facility] OR MAIN ??? WA REPAIR ENTEROCELE,VAG APPRCH 09/10/2010 ENTEROCELE REPAIR VAGINAL APPROACH performed by FRANKLYN PACK at [facility] OR MAIN ??? WA REPAIR OF PERINEUM,NON OBSTETRICAL 09/10/2010 PERINEOPLASTY performed by FRANKLYN PACK at [facility] OR MAIN ??? WA REPR VAGINAL PROLAPSE,SACROSP LIG 09/10/2010 SACROSPINOUS LIGAMENT FIXATION performed by FRANKLYN PACK at [facility] OR MAIN Physical Findings: Wt Readings from Last 3 Encounters: 10/04/16 94.8 kg (209 lb) 06/21/16 93.4 kg (206 lb) 01/19/16 92.5 kg (204 lb) BP 124/80 Pulse 68 Ht 5' 5 (1.651 m) Wt 94.8 kg (209 lb) BMI 34.78 kg/m2 Normal blood pressure Physical Exam: General [...] phase. Psych: mood and affect appropriate. Lab: Lab Results Component Value Date/Time HGBA1C 6.3 (H) 09/30/2016 07:21 AM Component Latest Ref Rng 08/18/2015 08/18/2015 08/18/2015 [...] Creatinine 0.81 Calcium 10.3 TSH 4.45 Reviewed [facility] lab result done on 04/19/14 CMP [...] 12:18 PM SODIUM 136 12/07/2014 10:40 AM POTASSIUM 4.0 01/19/2016 10:52 AM POTASSIUM 4.4 01/06/2015 12:18 PM POTASSIUM 3.2 (L) 12/07/2014 10:40 AM CHLORIDE 106 01/19/2016 10:52 AM CHLORIDE 104 01/06/2015 12:18 PM CHLORIDE 99 12/07/2014 10:40 AM CO2 25 01/19/2016 10:52 AM CO2 26 01/06/2015 12:18 PM CO2 26 12/07/2014 10:40 AM BUN 23 01/19/2016 10:52 AM BUN 17 01/06/2015 12:18 PM BUN 20 12/07/2014 10:40 AM GLUCOSE 104 (H) 01/19/2016 10:52 AM GLUCOSE 158 (H) 01/06/2015 12:18 PM GLUCOSE 188 (H) 12/07/2014 10:40 AM Lab Results Component Value Date/Time CREATININE 0.96 (H) 01/19/2016 10:52 AM CREATININE 0.87 01/06/2015 12:18 PM CREATININE 0.82 12/07/2014 10:40 AM Lab Results Component Value Date/Time TSH 5.89 [...] tolerated with her. Improved blood glucose. Continue medications, decreased Levemir dose to 8 units. Patient was asked to monitor blood sugars and write down how much diabetic meds taken/accucheck time/special circumstances Diabetes plan reviewed with patient. Will repeat HgA1C, CMP, lipid panel in 3 months. 2. Hypercalcemia - Most [...] high TSH, c/o weight gain and fatigue. Will try small thyroid dose - Levothyroxine 25 mcg daily, repeat TSH in 6 weeks. Needs to be careful due to h/o [...] at any time. Sincerely, Yuliya Ibarra MD documented in this encounter Plan of Treatment Upcoming Encounters Date Type Department Care Team (Late st Contact Info) Description 07/12/2024 2:30 PM BANQUET DIRECTOR Office Visit [facility] Oncology and Hematology - Oscar [address] [facility] [address] [place] [address] Ovidio Nolen MD [address] [facility] [address] [place] [address] documented as of this encounter Procedures Procedure Name Priority Date/Time Associated Diagnosis Comments TSH Routine 12/12/2016 4:14 AM CDT Type 2 diabetes mellitus without complication, with long-term current use of insulin HEMOGLOBIN A1C Routine 12/12/2016 4:14 AM CDT Type 2 diabetes mellitus without complication, with long-term current use of insulin LIPID PANEL Routine 12/12/2016 4:14 AM CDT Type 2 diabetes mellitus without complication, with long-term current use of insulin COMPREHENSIVE METABOLIC PANEL Routine 12/12/2016 4:14 AM CDT Type 2 diabetes mellitus without complication, with long-term current use of insulin documented in this encounter Results * TSH (12/12/2016 4:14 AM CDT) TSH 3.87 0.40 - 4.50 mIU/L [employer] Comment: Test Performed at: [facility] [address] [place], [place] ??[phone] ELIE HAMLIN DO,MPH Blood 12/12/2016 4:14 AM CDT Yuliya Ibarra MD CHEMISTRY ORDERABLES Performing Organization Address [facility] de Phone Number [employer] [facility] [address] [place] [address] * (ABNORMAL) HEMOGLOBIN A1C (12/12/2016 4:14 AM CDT) [facility] HEMOGLOBIN A1C 6.5(H) <5.7 % of total Hgb [facility] [employer] [facility] Comment: For someone without known diabetes, [...] A1c for diagnosis of diabetes for children. REPORT COMMENT: FASTING:YES Test Performed at: [facility] [employer] [employer] ??[phone] EILE HAMLIN DO,MPH Blood 12/12/2016 4:14 AM CDT Yuliya Ibarra MD CHEMISTRY ORDERABLES Performing Organization Address [facility] Co de Phone Number [employer] [facility] [address] [place] [address] * (ABNORMAL) COMPREHENSIVE METABOLIC PANEL (12/12/2016 4:14 AM CDT) [facility] GLUCOSE 102(H) 65 - 99 mg/dL [employer] Comment: ? Fasting reference interval For someone without known diabetes, a glucose value between 100 and 125 mg/dL is consistent with prediabetes and should be confirmed with a follow-up test. BUN 15 7 - 25 mg/dL [facility] CREATININE 0.99(H) 0.60 - 0.93 mg/dL [facility] Comment: For patients >49 years of age, the reference limit for Creatinine is approximately 13% higher for people identified as -Chinese. GFR 55(L) > OR = 60 mL/min/1. 73m2 [facility] GFR, 63 > OR = 60 mL/min/1. 73m2 [facility] BUN/CREAT RATIO 15 6 - 22 (calc) [facility] SODIUM 143 135 - 146 mmol/L [facility] POTASSIUM 4.2 3.5 - 5.3 mmol/L [facility] [employer] [facility] CHLORIDE 108 98 - 110 mmol/L [facility] [employer] [facility] CO2 28 20 - 31 mmol/L [facility] CALCIUM 10.2 8.6 - 10.4 mg/dL [facility] [employer] [facility] TOTAL PROTEIN 5.8(L) 6.1 - 8.1 g/dL [facility] ALBUMIN 3.8 3.6 - 5.1 g/dL [facility] GLOBULIN 2.0 1.9 - 3.7 g/dL (calc) [facility] ALBUMIN/GLOBULIN RATIO 1.9 1.0 - 2.5 (calc) [facility] BILIRUBIN TOTAL 0.4 0.2 - 1.2 mg/dL [facility] ALKALINE PHOSPHATASE 93 33 - 130 U/L [facility] AST 15 10 - 35 U/L [facility] ALT 18 6 - 29 U/L [facility] Comment: Test Performed at: [employer] [place] [address] [place], [place] ??[phone] ELIE HAMLIN DO,MPH Blood 12/12/2016 4:14 AM CDT Yuliya Ibarra MD CHEMISTRY ORDERABLES [employer] [facility] [address] [place] [address] * (ABNORMAL) LIPID PANEL (12/12/2016 4:14 AM CDT) CHOLESTEROL 97(L) 125 - 200 mg/dL [facility] HDL 33(L) > OR = 46 mg/dL [facility] TRIGLYCERIDE 138 <150 mg/dL [facility] LDL CALCULATED 36 <130 mg/dL (calc) [facility] Comment: Desirable range <100 mg/dL for patients with CHD or diabetes and <70 mg/dL for diabetic patients with known heart disease. CHOL/HDL RATIO 2.9 < OR = 5.0 (calc) [facility] TOTAL NON-HDL CHOL(LDL+VLDL) 64 mg/dL (calc) [facility] Comment: Target for non-HDL cholesterol is 30 mg/dL higher than LDL cholesterol target. Test Performed at: [facility] [address] [place], [place] ??[phone] ELIE HAMLIN DO,MPH Blood 12/12/2016 4:14 AM CDT Yuliya Ibarra MD CHEMISTRY ORDERABLES Performing Organization Address City/State/[facility] Co de Phone Number [facility] [address] [place] [address] documented in this encounter Visit Diagnoses Diagnosis Type 2 diabetes mellitus without complication, with long-term current use of insulin- Primary Subclinical hypothyroidism Other specified acquired hypothyroidism Multiple thyroid nodules Nontoxic multinodular goiter Hypercalcemia documented in this encounter Care Teams Guide Dog Trainer Relationship Specialty Start Date End Date Jarrell Garrison MD PCP - General Geriatric Medicine 06/21/16 08/13/18 documented as of this encounter
--- OUTSIDE RECORDS SUMMARY | 2024-05-26 13:16 | XMS_ITS | Encounter Summary ---
Author Organization [facility] Address [address] [place] [address] Care Team Providers Care Master Fire Control Technician Name Role Phone Jarrell Garrison MD Primary Care Provider [phone] Encounter Details Date Type Department Care Team (Late st Contact Info) Description 03/04/2017 Abstract [facility] Endocrinology [address] [place] [address] Yuliya Ibarra MD [address] [place] [address] Social History Tobacco Use Types [...] Info) Description 07/12/2024 2:30 PM REAL ESTATE MANAGEMENT SPECIALIST Office Visit [facility] Oncology and Hematology - Oscar [address] [facility] [address] [place] [address] Ovidio Nolen MD [address] [facility] [address] [place] [address] documented as of this encounter Visit Diagnoses Not on filedocumented in this encounter Care Teams Master Fire Control Technician Relationship Specialty Start Date End Date Jarrell Garrison MD PCP - General Geriatric Medicine 06/21/16 08/13/18 documented as of this encounter
--- OUTSIDE RECORDS SUMMARY | 2024-05-26 13:16 | XMS_ITS | Encounter Summary ---
Author Organization [facility] Address [address] [place] [address] Care Team Providers Care Respiratory Manager Name Role Phone Jarrell Garrison MD Primary Care Provider [phone] Reason for Visit * Reason Comments Medication Refill Encounter Details Date Type Department Care Team (Late st Contact Info) Description 12/31/2015 Refill [facility] Endocrinology [address] [place] [address] Yuliya Ibarra MD [address] [place] [address] Social History Tobacco Use Types [...] * Telephone Encounter - Kati Quintero - 01/03/2016 4:12 PM CDT Nov 01/19/16; galo 09/22/15 documented in this encounter Plan of Treatment Upcoming Encounters Date Type Department Care Team (Late st Contact Info) Description 07/12/2024 2:30 PM VESSEL SCRAPPER Office Visit [facility] Oncology and Hematology - [place] [address] [place] [address] Ovidio Nolen MD [address] [facility] [address] [place] [address] documented as of this encounter Visit Diagnoses Not on filedocumented in this encounter Care Teams Respiratory Manager Relationship Specialty Start Date End Date Jarrell Garrison MD PCP - General Geriatric Medicine 06/21/16 08/13/18 documented as of this encounter
--- OUTSIDE RECORDS SUMMARY | 2024-05-26 13:16 | XMS_ITS | Encounter Summary ---
Author Organization [employer] Address [address] [place] [address] Care Team Providers Care Regional Business Manager Name Role Phone Jarrell Garrison MD Primary Care Provider [phone] Reason for Referral * Outpatient Services (Routine) - Closed Specialty Diagnoses / Procedures Referred By Alejandrina vale Referred To Contact Radiology Diagnoses Multiple thyroid nodules Procedures US BIOPSY THYROID NEEDLE GUIDANCE Yuliya Ibarra MD [address] [place] [address] [address] Interventional Radiology [address] [place] [address] Referral ID Status Reason Start Date Expiration Date Visits Requested Visits Authorized [id number] Closed STL Interventional 10/17/2017 11/17/2018 1 1 Reason for Visit * Outpatient Services (Routine) - Closed Specialty Diagnoses / Procedures Referred By Alejandrina vale Referred To Contact Radiology Diagnoses Multiple thyroid nodules Procedures US BIOPSY THYROID NEEDLE GUIDANCE Yuliya Ibarra MD [address] [place] [address] St Interventional Radiology [address] [place] [address] Referral ID Status Reason Start Date Expiration Date Visits Requested Visits Authorized [id number] Closed STL Interventional 10/17/2017 11/17/2018 1 1 Encounter Details Date Type Department Care Team (Latest Contact Info) Description 11/24/2017 2:02 PM CDT - 11/24/2017 11:59 PM CDT Hospital Encounter [facility] [address] [place] [address] Yuliya Ibarra MD [address] [place] [address] Discharge Disposition: Home or Self [...] Sig Dispensed Refills Start Date End Date Calcium Carbonate-Vit D3-Min 600 mg calcium- 400 unit Tablet Take 1 Tablet by mouth. 10/29/2017 metOLazone (ZAROXOLYN) 2.5 mg tablet Take 2.5 mg by mouth every 7 days. potassium chloride (KLOR-CON) 10 mEq Extended Release tablet TAKE 4 TABLETS DAILY WITH BREAKFAST 360 Tablet 04/02/2017 lancets (FREESTYLE LANCETS) 28 gauge 100 Each by [facility].(Non-Drug; Combo Route) route daily. Dx code 250.02 [...] 1 Tablet (10 mg) by mouth daily mgmt analyst. 90 Tablet 1 10/10/2017 07/16/2018 blood sugar diagnostic (FREESTYLE LITE STRIPS) Strip TEST BLOOD SUGARS TWICE A DAY Dx E11.9. 200 Strip 1 02/18/2017 10/04/2018 insulin detemir (LEVEMIR FLEXTOUCH) 100 unit/mL pen syringe : INJECT 8 UNITS SUBCUTANEOUSLY DAILY IN IN THE MORNING. 15 mL 2 02/05/2017 01/23/2018 HAYDEN PEN NEEDLE 32 gauge x 5/32 Needle USE TO INJECT INSULIN ONCE DAILY 100 Each 3 11/08/2016 01/13/2018 documented as of this encounter Plan of Treatment Upcoming Encounters Date Type Department Care Team (Late st Contact Info) Description 07/12/2024 2:30 PM CHIPPER FEEDER Office Visit [facility] Oncology and Hematology - [place] [address] [facility] [address] [place] [address] Ovidio Nolen MD [address] [facility] [address] [place] [address] documented as of this encounter Procedures Procedure Name Priority Date/Time Associated Diagnosis Comments US BIOPSY THYROID PERCUTANEOUS Routine 11/24/2017 3:43 PM CDT Multiple thyroid nodules CYTOLOGY, NON GYNE Routine 11/24/2017 3: 29 PM CDT documented in this encounter Results * US BIOPSY THYROID NEEDLE GUIDANCE (11/24/2017 3:43 PM CDT) Anatomical Region Laterality Modality Neck Ultrasound 11/24/2017 3:44 PM CDT Impressions 11/25/2017 8:33 AM CDT IMPRESSION: Ultrasound-guided fine needle aspiration of a thyroid nodule as described above. DICTATION LOCATION: Location 1 - [facility]. Narrative 11/25/2017 8:33 AM CDT ULTRASOUND-GUIDED FINE-NEEDLE ASPIRATION OF THE THYROID. DATE: 11/24/2017 3:43 PM HISTORY : 76 year old female ??with a left-sided thyroid nodule presents for FNA. SURGEON: Yessica Oliveros MD Informed written consent was obtained from the patient after explaining the procedure, benefits and risks (including but not limited to bleeding and infection). Procedure: Under direct ultrasound guidance, fine-needle aspiration of the soft tissue nodule was performed using a 27-gauge needle. The patient tolerated the procedure well. Procedure Note Yessica Oliveros MD - 11/25/2017 ULTRASOUND-GUIDED FINE-NEEDLE ASPIRATION OF THE THYROID. DATE: 11/24/2017 3:43 PM HISTORY : 76 year old female with a left-sided thyroid nodule presents for FNA. SURGEON: Yessica Oliveros MD Informed written consent was obtained from the patient after explaining the procedure, benefits and risks (including but not limited to bleeding and infection). Procedure: Under direct ultrasound guidance, fine-needle aspiration of the soft tissue nodule was performed using a 27-gauge needle. The patient tolerated the procedure well. IMPRESSION: Ultrasound-guided fine needle aspiration of a thyroid nodule as described above. DICTATION LOCATION: Location 1 - [facility]. Yuliya Ibarra MD ORDERABLES * CYTOLOGY, NON GYNE (11/24/2017 3:29 PM CDT) CASE REPORT Surgical Pathology Report ? Case: [id number] ? Authorizing Provider: ??Yessica Oliveros MD ?Collected: ? 11/24/2017 03:29 PM ? Ordering Location: ? [facility] ? Received: ?11/25/2017 09:06 AM ? [place] ? Pathologist: ? Julian Kunz MD ? Specimen: ?Thyroid ? 11/25/2017 7:25 PM [facility] FINAL DIAGNOSIS Thyroid, left, FNA, cytology: - Cellular features consistent with a benign follicular nodule (see description). 11/25/2017 7:25 PM [facility] IMEN DESCRIPTION Left thyroid. 11/25/2017 7:25 PM [facility] OPERATIVE PROCEDURE Fine needle aspiration. 11/25/2017 7:25 PM [facility] CLINICAL DIAGNOSIS Thyroid nodule. 11/25/2017 7:25 PM [facility] GROSS DESCRIPTION Received is 30 mL of clear, colorless CytoLyt. A ThinPrep is prepared. VLAD/ramon 11/25/2017 7:25 PM [facility] MICROSCOPIC DESCRIPTION The ThinPrep has a low cellularity. There are a few scattered sheets and an occasional follicular group of follicular cells which are without significant cytologic atypia. There is a small amount of colloid in the background. Although the amount of follicular epithelium is marginally adequate for assessment, the cytologic features favor a benign follicular nodule. 11/25/2017 7:[address] [facility] COMMENT Special stain and/or immunohistochemical results are interpreted with controls that demonstrate appropriate staining reactions. Note on use of immunocytochemistry reagents: This test was developed and its performance characteristic determined by [facility], Department of Laboratory Medicine. It has not been cleared or approved by the U.S. Food and Drug Administration. The FDA has determined that such clearance or approval is not necessary. The test is used for clinical purpose. It should not be regarded as investigational or for research. This laboratory is certified to perform high complexity testing. Case types starting with WS, WF, WB and WH are performed by [address], [address]. All other case types are performed by [facility] [address] [facility], [address]. 11/25/2017 7:25 PM CDT [facility] Body fluid ENTIRE THYROID GLAND / Unknown 11/24/2017 3:29 PM CDT 11/25/2017 9:06 AM CDT Yessica Domo VILLEDA PATHOLOGY/CYTOLOGY O RDERABLES [facility] CLIA# [id number] [address] [place] [address] [place] [address] documented in this encounter Visit Diagnoses Diagnosis Multiple thyroid nodules Nontoxic multinodular goiter documented in this encounter Care Teams Regional Business Manager Relationship Specialty Start Date End Date Jarrell Garrison MD PCP - General Geriatric Medicine 06/21/16 08/13/18 documented as of this encounter
--- OUTSIDE RECORDS SUMMARY | 2024-05-26 13:16 | XMS_ITS | Encounter Summary ---
Author Organization [facility] Address [address] [place] [address] Care Team Providers Care Pulp Plant Supervisor Name Role Phone Jarrell Garrison MD Primary Care Provider [phone] Reason for Visit * Reason Comments Medication Refill Encounter Details Date Type Department Care Team (Late st Contact Info) Description 02/11/2017 Refill [facility] Endocrinology [address] [place] [address] Yuliya Ibarra MD [address] [place] [address] Social History Tobacco Use Types [...] * Addendum Note - Ina Laguna - 02/18/2017 5:16 PM CDTAddended by: INA LAGUNA on: 02/18/2017 05:16 PM Modules accepted: Orders * Telephone Encounter - Ina Laguna - 02/18/2017 5:14 PM CDT Pharm needs e script resent w/ dx code * Telephone Encounter - Warren Searsika - 02/12/2017 3:00 PM CDT Nov 05/02/17 galo 01/17/17 documented in this encounter Plan of Treatment Upcoming Encounters Date Type Department Care Team (Late st Contact Info) Description 07/12/2024 2:30 PM BIOCHEMIST Office Visit [facility] Oncology and Hematology - [place] [address] [facility] [address] [place] [phone] Ovidio Nolen MD [address] [facility] [address] [place] [address] documented as of this encounter Visit Diagnoses Not on filedocumented in this encounter Care Teams Pulp Plant Supervisor Relationship Specialty Start Date End Date Jarrell Garrison MD PCP - General Geriatric Medicine 06/21/16 08/13/18 documented as of this encounter
--- OUTSIDE RECORDS SUMMARY | 2024-05-26 13:16 | XMS_ITS | Encounter Summary ---
Author Organization [facility] Address [address] [place] [address] Care Team Providers Care Chemical Plant Manager Name Role Phone Julian Payne MD Primary Care Provider [phone] Reason for Visit * Reason Comments Thyroid Problem Encounter Details Date Type Department Care Team (Late st Contact Info) Description 01/19/2016 10:15 AM CDT Office Visit [facility] Endocrinology [address] [place] [address] Yuliya Ibarra MD [address] [place] [address] Type 2 diabetes mellitus not at goal (Primary Dx); Elevated TSH; Hypercalcemia; Multiple thyroid nodules Social History Tobacco Use [...] Sign Reading Time Taken Comments Blood Pressure 134/73 01/19/2016 10:12 AM CDT Pulse 80 01/19/2016 10:12 AM CDT Temperature - - Respiratory Rate - - Oxygen Saturation - - Inhaled Oxygen Concentration - - Weight 92.5 kg (204 lb) 01/19/2016 10:12 AM CDT Height 165.1 cm (5' 5 ) 01/19/2016 10:12 AM CDT Body Mass Index 33.95 01/19/2016 10:12 AM CDT documented in this encounter Progress Notes * Yuliya Ibarra MD - 01/19/2016 10:20 AM CDT [facility] Endocrinology Yuliya Ibarra M.D. PCP: Dr. Julian Payne Precision Jig Grinder: Dr. Alexandre Reese Neurologist: Dr. Nelson Ross Returned Goods Receiving Clerk: Dr. Krishan Moran Vascular Surgeon: Dr. Elle Landaverde Environmental Conservation Professor: Dr. Laz Valencia Kier Drier: Dr. Phuong Callejas Reason for visit: DM follow-up. Subjective: Perla Leon is a 75 y.o. female with multiple medical problems, who presents to clinic for DM, thyroid nodules, hypercalcemia, atrial fibrillation, follow-up. Patient was diagnosed with multiple thyroid nodules via ultrasound. Her thyroid ultrasound was in October/2013 revealing small thyroid nodules. Patient denies changes in her neck size, [...] sugars 2 times daily, reviewed patient's numbers. 118-156 in am and 120 to 169 in pm. Glucometer: has one. Last eye exam: 3 months ago - has glaucoma. No hypoglycemia. Goes to a dredge boat engineer. Patient was found to have hypercalcemia, parathyroid [...] and her last potassium level was normal Still experiencing recent falls, had to go to ER. Review of Systems: Endo/Gen: Her weight has [...] Outpatient Prescriptions Medication Sig Dispense Refill ??? FREESTYLE LITE STRIPS Strip TEST BLOOD SUGARS TWICE A DAY 200 Strip 1 ??? JANUVIA 100 mg Tablet TAKE 1 TABLET DAILY WITH BREAKFAST 90 Tablet 1 ??? potassium chloride (KLOR-CON) 10 mEq Extended Release tablet TAKE 4 TABLETS DAILY WITH BREAKFAST 360 Tablet 1 ??? glimepiride (AMARYL) 1 mg tablet TAKE 1 AND A HALF TABS WITH BREAKFAST TAKE 2 TABLET AT LUNCH AND TAKE 2 1/2 TABLET AT DINNER. 540 Tablet 1 ??? Insulin [place], Disposable, (HAYDEN PEN NEEDLE) 32 gauge x 5/32 Needle To use one daily DX E11.65. 100 Each 1 ??? insulin detemir (LEVEMIR FLEXTOUCH) 100 unit/mL Insulin Pen 10 units sq daily in am. 15 mL 0 ??? bimatoprost (LUMIGAN) 0.01 % solution 1 [...] mg by mouth daily before breakfast. ??? valsartan (DIOVAN) 80 mg Oral tablet Take 80 mg by mouth daily. ??? triamterene-hydrochlorothiazide (MAXZIDE) 75-50 mg Oral tablet [...] History: Social History Social History ??? Marital Status: Spouse Name: N/A ??? Number of Children: N/A ??? Years of Education: N/A Occupational History ??? Social History Main Topics ??? Smoking status: Never Smoker ??? Smokeless tobacco: Not on file ??? Alcohol Use: No ??? Drug Use: No ??? Sexual Activity: Not on file Comment: hyst Other Topics Concern ??? Not on file Social History Narrative Family medical history: Family History Problem Relation Age of Onset ??? Breast Cancer Mother ??? Hypertension Brother ??? High Cholesterol Brother Medical History: Past Medical History Diagnosis Date ??? Pneumonia just recovering ??? Seizure disorder 2001 after stroke-none since ??? CVD (cerebrovascular disease) 0809-7085 TIA x2 ??? Duodenal ulcer 1977 ??? Shingles [id number] x3 ??? Glaucoma ??? Heart murmur ??? Hard of hearing right ear worse ??? Cancer skin ??? 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 Spondylolisthesis l4-l5 ??? Arthritis hands and back ??? Asthma ??? Ischemia of heart, chronic ??? Diabetes no medication at present ??? GERD (gastroesophageal reflux disease) ??? HTN (hypertension) ??? Hyperlipidemia ??? IBS (irritable bowel syndrome) ??? PVD (peripheral vascular disease) feet mainly ??? Obstructive sleep apnea (adult) (pediatric) to bring cpap day of surgery Patient Active Problem List Diagnosis Code ? ? ssc, a&p, no sling N99.3 ??? Multiple thyroid nodules E04.2 ??? Diabetes mellitus type II, uncontrolled E11.65 ??? Hypercalcemia E83.52 Past Surgical History Procedure Laterality Date ??? Hx cholecystectomy 1998 ??? Hx hysterectomy 1985 ??? Hx surgical other 1975 ulcer removed from vocal cord ??? Hx hernia repair 2009-latter day ne ??? Hx knee arthroscopy 7699-3475 right knee ??? Hx heart catheterization 2002 dr. Valencia ??? Hx surgical other 1984 surgery for broken nose ??? Pr repr vaginal prolapse,sacrosp lig 09/10/2010 SACROSPINOUS LIGAMENT FIXATION performed by FRANKLYN PACK at [facility] ??? Pr anter colporrhaphy,blad/vagina 09/10/2010 CYSTOCELE REPAIR performed by FRANKLYN PACK at [facility] ??? Hx surgical other 09/10/2010 ANTERIOR POSTERIOR REPAIR performed by FRANKLYN PACK at [facility] ??? Pr repair of perineum,non obstetrical 09/10/2010 PERINEOPLASTY performed by FRANKLYN PACK at [facility] ??? Pr post colporrhaphy,rectum/vagina 09/10/2010 RECTOCELE REPAIR performed by FRANKLYN PACK at [facility] ??? Pr repair enterocele,vag apprch 09/10/2010 ENTEROCELE REPAIR VAGINAL APPROACH performed by FRANKLYN PACK at [facility] Physical Findings: Wt Readings from Last 3 Encounters: 01/19/16 92.534 kg (204 lb) 09/22/15 92.534 kg (204 lb) 06/23/15 92.534 kg (204 lb) BP 134/73 mmHg Pulse 80 Ht 5' 5 (1.651 m) Wt 92.534 kg (204 lb) BMI 33.95 kg/m2 Normal blood pressure Physical Exam: General [...] or organomegaly Exam of extremities:peripheral pulses normal, no trace -1+ Edema Neuro: No tremor, reflexes were 2+ with a normal return phase. Feet: no lesions noted, no sensation to monofilament exam. Psych: mood and affect appropriate. Lab: Component [...] (H) EST. AVG GLUCOSE, A1C 192 177 Reviewed [facility] lab result done on 04/19/14 CMP - [...] Lab Results Component Value Date/Time SODIUM 142 01/06/2015 12:18 PM SODIUM 136 12/07/2014 10:40 AM SODIUM 140 11/14/2014 11:54 AM SODIUM 142 11/17/2013 03:36 PM SODIUM 140 04/28/2013 03:24 PM POTASSIUM 4.4 01/06/2015 12:18 PM POTASSIUM 3.2* 12/07/2014 10:40 AM POTASSIUM 3.3* 11/14/2014 11:54 AM POTASSIUM 3.9 11/17/2013 03:36 PM POTASSIUM 3.9 04/28/2013 03:24 PM CHLORIDE 104 01/06/2015 12:18 PM CHLORIDE 99 12/07/2014 10:40 AM CHLORIDE 103 11/14/2014 11:54 AM CHLORIDE 106 11/17/2013 03:36 PM CHLORIDE 101 04/28/2013 03:24 PM CO2 26 01/06/2015 12:18 PM CO2 26 12/07/2014 10:40 AM CO2 26 11/14/2014 11:54 AM CO2 28 11/17/2013 03:36 PM CO2 27 04/28/2013 03:24 PM BUN 17 01/06/2015 12:18 PM BUN 20 12/07/2014 10:40 AM BUN 18 11/14/2014 11:54 AM BUN 21* 11/17/2013 03:36 PM BUN 20 04/28/2013 03:24 PM GLUCOSE 158* 01/06/2015 12:18 PM GLUCOSE 188* 12/07/2014 10:40 AM GLUCOSE 201* 11/14/2014 11:54 AM GLUCOSE 139* 11/17/2013 03:36 PM GLUCOSE 231* 04/28/2013 03:24 PM Lab Results Component Value Date/Time CREATININE 0.87 01/06/2015 12:18 PM CREATININE 0.82 12/07/2014 10:40 AM CREATININE 0.83 11/14/2014 11:54 AM CREATININE 0.86 11/17/2013 03:36 PM CREATININE 0.84 04/28/2013 03:24 PM Lab Results Component Value Date/Time TSH 4.24* 11/17/2013 03:36 PM TSH 5.22* 04/28/2013 03:24 PM Lab Results Component Value [...] her. Improved blood glucose. Continue current medications. Her HgA1C target is lower limit of 7%. Patient was asked to monitor blood sugars and write down how much diabetic meds taken/accucheck time/special circumstances Diabetes plan reviewed with patient. 2. Hypercalcemia - Most likely primary hyperparathyroidism. Repeat calcium level. Discussed hypercalcemia management and most likely etiology, needs to stay well hydrated. Conservative management. Check BMP before next visit. 3. Hypokalemia - takes HCTZ, KCL 40 mEq daily, will recheck. 4. Thyroid nodules - stable. Last ultrasound was done in 02/2015. Subclinical hypothyroidism. Slightly high TSH, no treatment required at this time w/ h/o atrial fibrillation. Repeat TSH. Patient is to call if experiences increase in her neck size/dysphagia/dyspnea/voice changes/tremors/palpitations or other problems arise. Follow-up in 4 months when available. >15 min of this 25 min visit was discussion/counseling. I would like to thank you for allowing me to participate in this patient's care, if you have any questions regarding my recommendations please do not hesitate to contact me at any time. Sincerely, Yuliya Ibarra MD * Susan Garcia - 01/19/2016 10:16 AM CDT Pt here for follow up documented in this encounter Plan of Treatment Upcoming Encounters Date Type Department Care Team (Late st Contact Info) Description 07/12/2024 2:30 PM RAILROAD AUDITOR Office Visit [facility] Oncology and Hematology [facility] [address] [facility] [address] [place] [address] Ovidio Nolen MD [address] [facility] [address] [place] [address] documented as of this encounter Results * (ABNORMAL) BASIC METABOLIC PANEL (01/19/2016 10:52 AM CDT) SODIUM 144 136 - 145 mmol/L 01/19/2016 12:39 PM CDT [facility] POTASSIUM 4.0 3.5 - 5.0 mmol/L 01/19/2016 12:39 PM CDT [facility] CHLORIDE 106 98 - 107 mmol/L 01/19/2016 12:39 PM CDT [facility] CO2 25 22 - 29 mmol/L 01/19/2016 12:39 PM [facility] CALCIUM 9.9 8.6 - 10.2 mg/dL 01/19/2016 12:39 PM [facility] BUN 23 8 - 23 mg/dL 01/19/2016 12:39 PM [facility] CREATININE 0.96(H) 0.51 - 0.95 mg/dL 01/19/2016 12:39 PM [facility] Comment: The GFR result is not clinically significant on patients <18 or >70 years of age. GLUCOSE 104(H) 74 - 99 mg/dL 01/19/2016 12:39 PM [facility] GFR 56 mL/min/1.7 3 sq meter 01/19/2016 12:39 PM [facility] Comment: eGFR has not been [...] result. GFR, >60 mL/min/1.7 3 sq meter 01/19/2016 12:39 PM [facility] ANION GAP 13 8 - 16 mmol/L 01/19/2016 12:39 PM [facility] Blood Venipuncture - L ab Collect / Unknown 01/19/2016 10:52 AM CDT 01/19/2016 11:57 AM CDT Yuliya Ibarra MD CHEMISTRY ORDERABLES [facility] CLIA# [id number] [address] [place] [address] * (ABNORMAL) TSH (01/19/2016 10:52 AM CDT) TSH 5.89(H) 0.27 - 4.20 uIU/mL 01/19/2016 12:43 PM CDT [facility] Blood Venipuncture - L ab Collect / Unknown 01/19/2016 10:52 AM CDT 01/19/2016 11:57 AM CDT Yuliya Ibarra MD CHEMISTRY ORDERABLES Performing Organization Address [facility] Co de Phone Number [facility] CLIA# [id number] [address] [place] [address] * (ABNORMAL) HEMOGLOBIN A1C (01/19/2016 10:52 AM CDT) HEMOGLOBIN A1C 6.9(H) 4.0 - 6.0 % 01/19/2016 1:11 PM CDT [facility] Comment:Note: Effective as o f 06/09/2015 a new methodology, Turbidimetric inhibition immunoassay (TINIA),has been implemented. EST. AVG GLUCOSE, A1C 151 mg/dL 01/19/2016 1:11 PM CDT [facility] Blood Venipuncture - L ab Collect / Unknown 01/19/2016 10:52 AM CDT 01/19/2016 11:57 AM CDT Yuliya Ibarra MD CHEMISTRY ORDERABLES Performing Organization Address [facility]/ZIP Co de Phone Number [facility] CLIA# [id number] [address] [place] [address] documented in this encounter Visit Diagnoses Diagnosis Type 2 diabetes mellitus not at goal- Primary Type II or unspecified type diabetes mellitus without mention of complication, uncontrolled Elevated TSH Other abnormal blood chemistry Hypercalcemia Multiple thyroid nodules Nontoxic multinodular goiter documented in this encounter Care Teams Chemical Plant Manager Relationship Specialty Start Date End Date Julian Payne MD PCP - General Internal Medicine 06/23/15 06/20/16 documented as of this encounter
--- OUTSIDE RECORDS SUMMARY | 2024-05-26 13:16 | XMS_ITS | Encounter Summary ---
Author Organization [facility] Address [address] [place] [address] Care Team Providers Care Furnace Reliner Name Role Phone Jarrell Garrison MD Primary Care Provider [phone] Encounter Details Date Type Department Care Team (Late st Contact Info) Description 05/02/2017 Orders Only [facility] Admitting [address] [place] [address] Shaista Garrison MD [address] [address] Social History Tobacco Use Types Packs/Day Years [...] (Late Contact Info) Description 07/12/2024 2:30 PM RESTAURANT INSPECTOR Office Visit [facility] Oncology and Hematology - [place] [address] [facility] [address] [place] [address] Ovidio Nolen MD [address] [facility] [address] [place] [address] documented as of this encounter Visit Diagnoses Not on filedocumented in this encounter Care Teams Furnace Reliner Relationship Specialty Start Date End Date Jarrell Garrison MD PCP - General Geriatric Medicine 06/21/16 08/13/18 documented as of this encounter
--- OUTSIDE RECORDS SUMMARY | 2024-05-26 13:16 | XMS_ITS | Encounter Summary ---
Author Organization [facility] Address [address] [place] [address] Care Team Providers Care Benefits Analyst Name Role Phone Julian Payne MD Primary Care Provider [phone] Encounter Details Date Type Department Care Team (Late Contact Info) Description 01/19/2016 Orders Only [facility] Admitting [address] [place] [address] Claude Burgos MD [address] [place] [address] Social History Tobacco Use Types Packs/Day Years [...] st Contact Info) Description 07/12/2024 2:30 PM BOILER CONTROL TECHNICIAN Office Visit [facility] Oncology and Hematology - [place] [address] [facility] [address] [place] [address] Ovidio Nolen MD [address] [place] [address] documented as of this encounter Visit Diagnoses Not on filedocumented in this encounter Care Teams Benefits Analyst Relationship Specialty Start Date End Date Julian Payne MD PCP - General Internal Medicine 06/23/15 06/20/16 documented as of this encounter
--- OUTSIDE RECORDS SUMMARY | 2024-05-26 13:16 | XMS_ITS | Encounter Summary ---
Author Organization [facility] Address [address] [place] [address] Care Team Providers Care Diet Aide Name Role Phone Julian Payne MD Primary Care Provider Reason for Visit * Reason Onset Date Comments Results 10/19/2015 a1c Encounter Details Date Type Department Care Team (Late st Contact Info) Description 10/19/2015 Telephone [facility] Endocrinology [address] [place] [address] Yuliya Ibarra MD [address] [place] [address] Results (a1c) Social History Tobacco [...] Telephone Encounter - Kati Quintero - 10/19/2015 12:01 PM CDT Pt informed of results. * Telephone Encounter - Kati Quintero - 10/19/2015 12:01 PM CDT ----- Message from Brandi Gerardo MD sent at 10/18/2015 5:18 PM CDT ----- Were is the A1c report please? documented in this encounter Plan of Treatment Upcoming Encounters Date Type Department Care Team (Late st Contact Info) Description 07/12/2024 2:30 PM PROCUREMENT FORESTER Office Visit [facility] Oncology and Hematology - [place] [address] [facility] [address] [place] [address] Ovidio Nolen MD [address] [facility] [facility] [address] [place] [address] documented as of this encounter Visit Diagnoses Not on filedocumented in this encounter Care Teams Diet Aide Relationship Specialty Start Date End Date Julian Payne MD PCP - General Internal Medicine 06/23/15 06/20/16 documented as of this encounter
--- OUTSIDE RECORDS SUMMARY | 2024-05-26 13:16 | XMS_ITS | Encounter Summary ---
Author Organization [facility] Address [address] [place] [address] Care Team Providers Care Alarm Mechanic Name Role Phone Jarrell Garrison MD Primary Care Provider [phone] Reason for Visit * Reason Comments Medication Refill Encounter Details Date Type Department Care Team (Late st Contact Info) Description 02/05/2017 Refill [facility] Endocrinology [address] [place] [address] Yuliya Ibarra MD [address] [place] [address] Social History Tobacco Use Types [...] * Telephone Encounter - Kati Quintero - 02/05/2017 11:36 AM CDT Nov 05/02/17 galo 01/17/17 documented in this encounter Plan of Treatment Upcoming Encounters Date Type Department Care Team (Late st Contact Info) Description 07/12/2024 2:30 PM INTERNAL COMMUNICATIONS MANAGER Office Visit [facility] Oncology and Hematology - [place] [address] [facility] [address] [place] [address] Ovidio Nolen MD [address] [facility] [address] [place] [address] documented as of this encounter Visit Diagnoses Not on filedocumented in this encounter Care Teams Alarm Mechanic Relationship Specialty Start Date End Date Jarrell Garrison MD PCP - General Geriatric Medicine 06/21/16 08/13/18 documented as of this encounter
--- OUTSIDE RECORDS SUMMARY | 2024-05-26 13:16 | XMS_ITS | Encounter Summary ---
Author Organization [facility] Address [address] [place] [address] Care Team Providers Care Title I Director Name Role Phone Jarrell Garrison MD Primary Care Provider [phone] Reason for Visit * Reason Comments Diabetes Encounter Details Date Type Department Care Team (Late st Contact Info) Description 01/17/2017 10:15 AM CDT Office Visit [facility] Endocrinology [address] [place] [address] Yuliya Ibarra MD [address] [place] [address] Type 2 diabetes mellitus without complication, without long-term current use of insulin (Primary Dx); Primary hypothyroidism; Hypercalcemia; Hypokalemia; Obesity (BMI 30.0-34.9) Social History Tobacco Use [...] Sign Reading Time Taken Comments Blood Pressure 130/68 01/17/2017 10:09 AM CDT Pulse 71 01/17/2017 10:09 AM CDT Temperature - - Respiratory Rate - - Oxygen Saturation - - Inhaled Oxygen Concentration - - Weight 95.3 kg (210 lb) 01/17/2017 10:09 AM CDT Height 165.1 cm (5' 5 ) 01/17/2017 10:09 AM CDT Body Mass Index 34.95 01/17/2017 10:09 AM CDT documented in this encounter Progress Notes * Yuliya Ibarra MD - 01/17/2017 10:[address] [facility] Endocrinology Yuliya Ibarra M.D. PCP: Dr. Julian Payne Area Development Manager: Dr. Alexandre Reese Neurologist: Dr. Nelson Ross Blacktop Paver Operator: Dr. Krishan Moran Vascular Surgeon: Dr. Elle Landaverde Divisional Storekeeper: Dr. Laz Valencia Greeter Guest Services: Dr. Phuong Callejas Reason for visit: DM [...] started experiencing hair loss, decided to stop taking 1 month ago. Her last TSH, done in December 30, was 3.55. DM regimen: currently on Glimepiride 1.5 mg in am, 2 mg with lunch and 2.5 mg with dinner, Januvia 100 mg daily, Levemir 10 units qhs, Jardiance 10 mg daily. Sugars are controlled at this time. Her recent HgA1C was 6.8% - done on 12/30/16 at [facility].CMP was WNL. She is staying well hydrated. Could not tolerate Metformin secondary to diarrhea. Checks her blood sugars 2 times daily, reviewed patient's numbers. Mostly controlled Glucometer: has one. Last eye exam: 3 months ago - has glaucoma. No hypoglycemia. Goes to a care management assistant. 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 Her DEXA scan revealed osteopenia and she was found to have normal urine calcium level. Patient is taking Triamterene/ HCTZ for her legswelling. She denies having problems with high calcium in the past, denies nephrolithiasis, admits to memory issues. Her last calcium level was 8.8 - done on 12/30/16. She was found to be hypokalemic, started [...] ??? HAYDEN PEN NEEDLE 32 gauge x 5/32 Needle USE TO INJECT INSULIN ONCE DAILY 100 Each 3 ??? insulin detemir (LEVEMIR FLEXTOUCH) 100 unit/mL pen syringe INJECT 8 UNITS SUBCUTANEOUSLY DAILYIN IN THE MORNING .. 15 mL 0 ??? levothyroxine 25 mcg tablet Take 1 Tablet (25 mcg) by mouth daily registered massage therapist. 30 Tablet 2 ??? FREESTYLE LITE STRIPS Strip TEST BLOOD [...] Years of education: N/A Occupational History ??? [employer] Social History Main Topics ??? Smoking [...] ??? Cancer skin ??? CVD (cerebrovascular disease) 7836-6063 TIA x2 ??? Diabetes no medication at [...] disorder 2000 after stroke-none since ??? Shingles [id number] x3 ??? Spondylolisthesis l4-l5 Patient Active Problem List Diagnosis Code ? ? ssc, a&p, no sling N99.3 ??? Multiple thyroid nodules E04.2 ??? Diabetes mellitus type II, uncontrolled E11.65 ??? Hypercalcemia E83.52 Past Surgical History: Procedure Laterality Date ??? HX CHOLECYSTECTOMY 1998 ??? HX HEART CATHETERIZATION 2002 dr. Valencia ??? H[facility] ??? HX HYSTERECTOMY 1986 ??? HX KNEE ARTHROSCOPY [id number] right knee ??? HX SURGICAL OTHER 1975 ulcer removed from vocal cord ??? HX SURGICAL OTHER 1985 surgery for broken nose ??? HX SURGICAL OTHER 09/10/2010 ANTERIOR POSTERIOR REPAIR performed by FRANKLYN PACK at [facility] ??? NC ANTER COLPORRHAPHY,BLAD/VAGINA 09/10/2010 CYSTOCELE REPAIR performed by FRANKLYN PACK at [facility] OR MAIN ??? NC POST COLPORRHAPHY,RECTUM/VAGINA 09/10/2010 RECTOCELE REPAIR performed by FRANKLYN PACK at [facility] OR MAIN ??? NC REPAIR ENTEROCELE,VAG APPRCH 09/10/2010 ENTEROCELE REPAIR VAGINAL APPROACH performed by FRANKLYN PACK at [facility] OR MAIN ??? NC REPAIR OF PERINEUM,NON OBSTETRICAL 09/10/2010 PERINEOPLASTY performed by FRANKLYN PACK at [facility] OR MAIN ??? NC REPR VAGINAL PROLAPSE,SACROSP LIG 09/10/2010 SACROSPINOUS LIGAMENT FIXATION performed by FRANKLYN PACK at [facility] OR MAIN Physical Findings: Wt Readings from Last 3 Encounters: 01/17/17 95.3 kg (210 lb) 10/04/16 94.8 kg (209 lb) 06/21/16 93.4 kg (206 lb) BP 130/68 Pulse 71 Ht 5' 5 (1.651 m) Wt 95.3 kg (210 lb) BMI 34.95 kg/m2 Normal blood pressure Physical Exam: General [...] Creatinine 0.81 Calcium 10.[address] [facility] lab result done on 04/19/14 CMP [...] patient. Will repeat HgA1C, CMP, TSH, urine microalbumin/creatinine in 3 months. 2. Hypercalcemia - Most likely primary hyperparathyroidism. H/o high PTH Better calcium levels lately - WNL. needs to stay well hydrated. Conservative management. Check CMP before next visit. 3. Hypokalemia - takes HCTZ, KCL 40 mEq daily. Last K 3.8 4. Thyroid nodules - stable, small cystic. [...] any time. Sincerely, Yuliya Ibarra MD * Helena Chan RMA - 01/17/2017 10:14 AM CDT Pt here for dm. documented in this encounter Plan of Treatment Upcoming Encounters Date Type Department Care Team (Late st Contact Info) Description 07/12/2024 2:30 PM TALENT DEVELOPMENT DIRECTOR Office Visit [facility] Oncology and Hematology [facility] [address] [facility] [address] [place] [address] Ovidio Nolen MD [address] [facility] [address] [place] [address] Scheduled Orders Name Type Priority Associated Diagnoses Orde r Schedule HEMOGLOBIN A1C Lab Routine Type 2 diabetes mellitus without complication, without long-term current use of insulin Expected: 04/17/2017, Expires: 01/17/2018 TSH Lab Routine Primary hypothyroidism Expected: 04/17/2017, Expires: 01/17/2018 MICROALBUMIN/CREATININE RATIO, RANDOM UR Lab Routine Type 2 diabetes mellitus without complication, without long-term current use of insulin Expected: 04/17/2017, Expires: 01/17/2018 COMPREHENSIVE METABOLIC PANEL Lab Routine Type 2 diabetes mellitus without complication, without long-term current use of insulin Hypercalcemia Expected: 04/17/2017, Expires: 01/17/2018 documented as of this encounter Visit Diagnoses Diagnosis Type 2 diabetes mellitus without complication, without long-term current use of insulin- Primary Primary hypothyroidism Unspecified hypothyroidism Hypercalcemia Hypokalemia Hypopotassemia Obesity (BMI 30.0-34.9) Obesity, unspecified documented in this encounter Care Teams Title I Director Relationship Specialty Start Date End Date Jarrell Garrison MD PCP - General Geriatric Medicine 06/21/16 08/13/18 documented as of this encounter
--- OUTSIDE RECORDS SUMMARY | 2024-05-26 13:16 | XMS_ITS | Encounter Summary ---
Author Organization [facility] Address [address] [place] [address] Care Team Providers Care Water Fabricator Operator Name Role Phone Julian Payne MD Primary Care Provider [phone] Encounter Details Date Type Department Care Team (Late st Contact Info) Description 02/06/2016 Abstract [facility] Endocrinology [address] [place] [address] Yuliya Ibarra MD [address] [place] [address] Social History Tobacco Use Types [...] st Contact Info) Description 07/12/2024 2:30 PM INFIRMARY ATTENDANT Office Visit [facility] Oncology and Hematology - [place] [address] [place] [address] Ovidio Nolen MD [address] [facility] [address] [place] [address] documented as of this encounter Visit Diagnoses Not on filedocumented in this encounter Care Teams Water Fabricator Operator Relationship Specialty Start Date End Date Julian Payne MD PCP - General Internal Medicine 06/23/15 2 documented as of this encounter
--- OUTSIDE RECORDS SUMMARY | 2024-05-26 13:16 | XMS_ITS | Encounter Summary ---
Author Organization [facility] Address [address] [place] [address] Care Team Providers Care Graduate Civil Engineer Name Role Phone Jarrell Garrison MD Primary Care Provider Reason for Visit * Reason Comments Medication Refill Encounter Details Date Type Department Care Team (Late st Contact Info) Description 12/11/2016 Refill [facility] Endocrinology [address] [place] [address] Yuliya Ibarra MD [address] [place] [address] Social History Tobacco Use Types [...] * Telephone Encounter - Duane Rios - 12/11/2016 11:10 AM CDT NOV 01/17/2017 JOSE G 10/04/16 documented in this encounter Plan of Treatment Upcoming Encounters Date Type Department Care Team (Late st Contact Info) Description 07/12/2024 2:30 PM SENIOR SALES EXECUTIVE Office Visit [facility] Oncology and Hematology - [place] [address] [place] [address] Ovidio Nolen MD [address] [facility] [address] [place] [address] documented as of this encounter Visit Diagnoses Not on filedocumented in this encounter Care Teams Graduate Civil Engineer Relationship Specialty Start Date End Date Jarrell Garrison MD PCP - General Geriatric Medicine 06/21/16 08/13/18 documented as of this encounter
--- OUTSIDE RECORDS SUMMARY | 2024-05-26 13:16 | XMS_ITS | Encounter Summary ---
Author Organization [facility] Address [address] [place] [address] Care Team Providers Care Linderman Machine Operator Name Role Phone Jarrell Garrison MD Primary Care Provider [phone] Reason for Visit * Reason Onset Date Comments Diabetes 06/06/2017 Encounter Details Date Type Department Care Team (Late st Contact Info) Description 06/06/[address] [facility] Endocrinology [address] [place] [address] Yuliya Ibarra MD [address] [place] [address] Diabetes Social History Tobacco Use Types Packs/Day Years Used Date Smoking Tobacco: Never Alcohol Use Standard Drinks/Week Comments No 0 (1 standard drink = 0.6 oz pur e alcohol) Sex and Gender Information Value Date Recorded Sex Assigned at Not on file Gender Identity Not on file Sexual Orientation Not on file documented as of this encounter Miscellaneous Notes * Telephone Encounter - Ny Landin - 06/10/2017 11:25 AM CST Called pt per note, no answer, left vm. Told to call if any questions. ARY CARE SALES REPRESENTATIVE * Telephone Encounter - Yuliya Ibarra MD - 06/06/2017 4:53 PM CST No change, continue the same for now. ARY CARE SALES REPRESENTATIVE * Telephone Encounter - Ny Landin - 06/06/2017 3:40 PM CST bs log attached ARY CARE SALES REPRESENTATIVE documented in this encounter Plan of Treatment Upcoming Encounters Date Type Department Care Team (Late st Contact Info) Description 07/12/2024 2:30 PM PRIMARY CARE SALES REPRESENTATIVE Office Visit [facility] Oncology and Hematology - [place] [address] [facility] [address] [place] [address] Ovidio Nolen MD [address] [facility] [address] [place] [address] documented as of this encounter Visit Diagnoses Not on filedocumented in this encounter Care Teams Linderman Machine Operator Relationship Specialty Start Date End Date Jarrell Garrison MD PCP - General Geriatric Medicine 06/21/16 08/13/18 documented as of this encounter
--- OUTSIDE RECORDS SUMMARY | 2024-05-26 13:16 | XMS_ITS | Encounter Summary ---
Author Organization [facility] Address [address] [place] [address] Care Team Providers Care Mixer Operator Vacuum Pan Salt Name Role Phone Jarrell Garrison MD Primary Care Provider [phone] Encounter Details Date Type Department Care Team (Late Contact Info) Description 10/02/2016 Orders Only [facility] Endocrinology [address] [place] [address] Yuliya Ibarra MD [address] [place] [address] Social History Tobacco Use Types [...] st Contact Info) Description 07/12/2024 2:30 PM JOURNEYMAN CARPENTER Office Visit [facility] Oncology and Hematology - [place] [address] [facility] [address] [place] [address] Ovidio Nolen MD [address] [facility] [address] [place] [address] documented as of this encounter Procedures Procedure Name Priority Date/Time Associated Diagnosis Comments MISCELLANEOUS LAB TEST Routine 10/01/2016 documented in this encounter Results * MISCELLANEOUS LAB TEST (10/01/2016) Yuliya Ibarra MD CHEMISTRY ORDERABLES documented in this encounter Visit Diagnoses Not on filedocumented in this encounter Care Teams Mixer Operator Vacuum Pan Salt Relationship Specialty Start Date End Date Jarrell Garrison MD PCP - General Geriatric Medicine 06/21/16 08/13/18 documented as of this encounter
--- OUTSIDE RECORDS SUMMARY | 2024-05-26 13:16 | XMS_ITS | Encounter Summary ---
Author Organization [facility] Address [address] [place] [address] Care Team Providers Care Credit Checker Name Role Phone Jarrell Garrison MD Primary Care Provider [phone] Reason for Referral * Outpatient Services (Routine) - Closed Specialty Diagnoses / Procedures Referred By Contac t Referred To Contact Radiology Diagnoses Multiple thyroid nodules Procedures US BIOPSY THYROID NEEDLE GUIDANCE Yuliya Ibarra MD [address] [place] [address] [address] Interventional Radiology [address] [place] [address] Referral ID Status Reason Start Date Expiration Date Visits Requested Visits Authorized [id number] Closed [facility] Interventional 10/17/2017 11/17/2018 1 1 * Eval and Treat (Routine) - Closed Specialty Diagnoses / Procedures Referred By Contac t Referred To Contact Interventional Radiology Diagnoses Multiple thyroid nodules Yuliya Ibarra MD [address] [place] [address] Referral ID Status Reason Start Date Expiration Date Visits Requested Visits Authorized [id number] Closed ST[facility] Interventional 10/17/2017 10/18/2018 1 1 Reason for Visit * Reason Onset Date Comments Results 10/17/2017 imaging Encounter Details Date Type Department Care Team (Late st Contact Info) Description 10/17/2017 Patient Outreach [facility] Endocrinology [address] [place] [address] Yuliya Ibarra MD [address] [place] [address] Results (imaging) Social History Tobacco Use Types Packs/Day Years [...] * Telephone Encounter - Kati Quintero - 10/17/2017 3:52 PM CDT Spoke to pt and informed of results and instructions. Pt voiced understanding and agreeable. Order and referral pending. * Telephone Encounter - Kati Quintero - 10/17/2017 3:51 PM CDT ----- Message from Yuliya Ibarra MD sent at 10/17/2017 2:27 PM CDT ----- She has a small cyst on the right, which is unchanged. Also, she has another new small thyroid nodule on the left, that needs to be biopsied. Please send to IR for FNA of the left 0.8x0.6x0.7 cm thyroid nodule. documented in this encounter Plan of Treatment Upcoming Encounters Date Type Department Care Team (Late st Contact Info) Description 07/12/2024 2:30 PM INVESTMENT MANAGER Office Visit [facility] Oncology and Hematology - [place] [address] [address] Ovidio Nolen MD [address] [facility] [address] [place] [address] Scheduled Referrals Name Type Priority Associated Diagnoses Order Schedule AMB REFERRAL TO INTERVENTIONAL RADIOLOGY Outpatient Referral Routine Multiple thyroid nodules Ordered: 10/17/2017 documented as of this encounter Results * US BIOPSY THYROID NEEDLE GUIDANCE (11/24/2017 3:43 PM CDT) Anatomical Region Laterality Modality Neck Ultrasound 11/24/2017 3:44 PM CDT Impressions 11/25/2017 8:33 AM CDT IMPRESSION: Ultrasound-guided fine needle aspiration of a thyroid nodule as described above. DICTATION LOCATION: Location [address] [place] [address]. Narrative 11/25/2017 8:33 AM CDT ULTRASOUND-GUIDED FINE-NEEDLE [...] thyroid nodule as described above. DICTATION LOCATION: [address] Yuliya Ibarra MD US ORDERABLES documented in this encounter Visit Diagnoses Diagnosis Multiple thyroid nodules- Primary Nontoxic multinodular goiter Multiple thyroid nodules Nontoxic multinodular goiter documented in this encounter Care Teams Credit Checker Relationship Specialty Start Date End Date Jarrell Garrison MD PCP - General Geriatric Medicine 06/21/16 08/13/18 documented as of this encounter
--- OUTSIDE RECORDS SUMMARY | 2024-05-26 13:16 | XMS_ITS | Encounter Summary ---
Author Organization [facility] Address [address] [place] [address] Care Team Providers Care Correctional Guard Name Role Phone Jarrell Garrison MD Primary Care Provider [phone] Reason for Visit * Reason Comments Medication Refill Encounter Details Date Type Department Care Team (Late st Contact Info) Description 01/13/2018 Refill [facility] Endocrinology [address] [place] [address] Yuliya Ibarra MD [address] [place] [address] Social History Tobacco Use Types [...] * Telephone Encounter - Kati Quintero - 01/13/2018 9:52 AM CDT Nov 01/23/18 galo 09/15/17 documented in this encounter Plan of Treatment Upcoming Encounters Date Type Department Care Team (Late st Contact Info) Description 07/12/2024 2:30 PM ENROLLMENT PROCESSOR Office Visit [facility] Oncology and Hematology - [place] [address] [facility] [address] [place] [address] Ovidio Nolen MD [address] [facility] [address] [place] [address] documented as of this encounter Visit Diagnoses Not on filedocumented in this encounter Care Teams Correctional Guard Relationship Specialty Start Date End Date Jarrell Garrison MD PCP - General Geriatric Medicine 06/21/16 08/13/18 documented as of this encounter
--- OUTSIDE RECORDS SUMMARY | 2024-05-26 13:16 | XMS_ITS | Encounter Summary ---
Author Organization [facility] Address [address] [place] [address] Care Team Providers Care Vine Fruit Farming Supervisor Name Role Phone Jarrell Garrison MD Primary Care Provider [phone] Reason for Referral * Outpatient Services (Routine) - Closed Specialty Diagnoses / Procedures Referred By Alejandrina vale Referred To Contact Ultrasound Diagnoses Multiple thyroid nodules Procedures US HEAD NECK TISSUES Yuliya Ibarra MD [address] [place] [address] Referral ID Status Reason Start Date Expiration Date V isits Requested Visits Authorized [id number] Closed STL CTS 09/15/2017 10/16/2018 1 1 Reason for Visit * Reason Comments Diabetes Encounter Details Date Type Department Care Team (Late st Contact Info) Description 09/15/2017 1:00 PM CDT Office Visit [facility] Endocrinology [address] [place] [address] Yuliya Ibarra MD [address] [place] [address] Type 2 diabetes mellitus without complication, without long-term current use of insulin (Primary Dx); Multiple thyroid nodules; Hypercalcemia; Severe obesity (BMI 35.0-39.9) with comorbidity Social History Tobacco Use Types Packs/Day Years [...] Sign Reading Time Taken Comments Blood Pressure 122/66 09/15/2017 1:06 PM CDT Pulse 80 09/15/2017 1:06 PM CDT Temperature - - Respiratory Rate - - Oxygen Saturation - - Inhaled Oxygen Concentration - - Weight 95.7 kg (211 lb) 09/15/2017 1:06 PM CDT Height 165.1 cm (5' 5 ) 09/15/2017 1:06 PM CDT Body Mass Index 35.11 09/15/2017 1:06 PM CDT documented in this encounter Progress Notes * Yuliya Ibarra MD - 09/15/2017 1:11 PM CDT [facility] Endocrinology Yuliya Ibarra M.D. PCP: Dr. Julian Payne Learning Coordinator: Dr. Alexandre Reese Neurologist: Dr. Nelson Ross Sharepoint Consultant: Dr. Krishan Moran Vascular Surgeon: Dr. Elle Landaverde Policy Intern: Dr. Laz Valencia Pharmacy Technician: Dr. Phuong Callejas Reason for visit: DM [...] hair loss, decided to stop taking. Her last TSH was mildly elevated. DM regimen: currently on Glimepiride 1.5 mg in am, 2 mg with lunch and 2.5 mg with dinner, Januvia 100 mg daily, Levemir 6 units qhs, Jardiance 10 mg daily. Sugars are controlled at this time. Her recent HgA1C was 7.0% - done on 08/26/17 at [facility].CMP was WNL. She is staying well hydrated. Could not tolerate Metformin secondary to diarrhea. Checks her blood sugars 2 times daily, reviewed patient's numbers. Mostly controlled in am, higher before dinner. She tells me she is going out to eat more and sugars are higher then. Glucometer: has one. Last eye exam: 3 months ago - has glaucoma. No hypoglycemia. Goes to a cooperative education director. Patient was found to have hypercalcemia, parathyroid [...] TABLETS AT DINNER 540 Tablet 0 ??? empagliflozin (JARDIANCE) 10 mg tablet Take 10 mg by mouth daily behavioral instructor. ??? metOLazone (ZAROXOLYN) 2.5 mg tablet Take [...] THE MORNING. ) 15 mL 2 ??? HAYDEN PEN NEEDLE 32 gauge x 5/32 Needle USE TO INJECT INSULIN ONCE DAILY 100 Each 3 ??? bimatoprost (LUMIGAN) 0.01 % solution 1 Drop daily at bedtime. ??? HYPROMELLOSE (SYSTANE GEL OP) by Ophthalmic route. PRN ??? lancets (FREESTYLE LANCETS) 28 gauge 100 Each [place] [facility] [place] [facility]Non-Drug; Combo [...] Years of education: N/A Occupational History ??? [employer] Social History Main Topics ??? Smoking status: [...] ??? Cancer skin ??? CVD (cerebrovascular disease) 9948-5755 TIA x2 ??? Diabetes no medication at [...] disorder 2000 after stroke-none since ??? Shingles [id number] x3 ??? Spondylolisthesis l4-l5 Patient Active Problem List Diagnosis Code ? ? ssc, a&p, no sling N99.3 ??? Multiple thyroid nodules E04.2 ??? Hypercalcemia E83.52 ??? Type 2 diabetes mellitus without complication, without long-term current use of insulin E11.9 Past Surgical History: Procedure Laterality Date ??? HX CHOLECYSTECTOMY 1998 ??? HX HEART CATHETERIZATION 2002 dr. Valencia ??? HX HERNIA REPAIR 2009-[facility] ??? HX HYSTERECTOMY 1986 ??? HX KNEE ARTHROSCOPY [id number] right knee ??? HX SURGICAL OTHER 1975 ulcer removed from vocal cord ??? HX SURGICAL OTHER 1985 surgery for broken nose ??? HX SURGICAL OTHER 09/10/2010 ANTERIOR POSTERIOR REPAIR performed by FRANKLYN PACK at [facility] OR [facility]IN ??? ME ANTERIOR COLPORRAPHY RPR CYSTOCELE W/CYSTO 09/10/2010 CYSTOCELE REPAIR performed by FRANKLYN PACK at [facility] OR [facility] ??? ME POST COLPORRHAPHY,RECTUM/VAGINA 09/10/2010 RECTOCELE REPAIR performed by FRANKLYN PACK at [facility] OR [facility] ??? ME REPAIR ENTEROCELE,VAG APPRCH 09/10/2010 ENTEROCELE REPAIR VAGINAL APPROACH performed by FRANKLYN PACK at [facility] OR [facility] ??? ME REPAIR OF PERINEUM,NON OBSTETRICAL 09/10/2010 PERINEOPLASTY performed by FRANKLYN PACK at [facility] OR [facility] ??? ME REPR VAGINAL PROLAPSE,SACROSP LIG 09/10/2010 SACROSPINOUS LIGAMENT FIXATION performed by FRANKLYN PACK at [facility] OR [facility] Physical Findings: Wt Readings from Last 3 Encounters: 09/15/17 95.7 kg (211 lb) 05/02/17 95.3 kg (210 lb) 04/18/17 92.5 kg (204 lb) BP 122/66 Pulse 80 Ht 5' 5 (1.651 m) Wt 95.7 kg (211 lb) BMI 35.11 kg/m?? Normal blood pressure Physical Exam: General [...] intact Psych: mood and affect appropriate. Lab: 08/26/17 Hga1C - 7.0% Lab Results Component Value Date/Time HGBA1C 7.1 (H) 05/02/2017 11:47 AM Component Latest Ref Rng & Units [...] Lab Results Component Value Date/Time SODIUM 142 05/02/2017 11:47 AM SODIUM 143 12/12/2016 04:14 AM SODIUM 144 01/19/2016 10:52 AM POTASSIUM 3.0 (L) 05/02/2017 11:47 AM POTASSIUM 4.2 12/12/2016 04:14 AM POTASSIUM 4.0 01/19/2016 10:52 AM CHLORIDE 101 05/02/2017 11:47 AM CHLORIDE 108 12/12/2016 04:14 AM CHLORIDE 106 01/19/2016 10:52 AM CO2 27 05/02/2017 11:47 AM CO2 28 12/12/2016 04:14 AM CO2 25 01/19/2016 10:52 AM BUN 17 05/02/2017 11:47 AM BUN 15 12/12/2016 04:14 AM BUN 23 01/19/2016 10:52 AM GLUCOSE 115 (H) 05/02/2017 11:47 AM GLUCOSE 102 (H) 12/12/2016 04:14 AM GLUCOSE 104 (H) 01/19/2016 10:52 AM Lab Results Component Value Date/Time ALBUMIN 4.2 05/02/2017 11:47 AM ALBUMIN 3.8 12/12/2016 04:14 AM CREATININE 0.82 05/02/2017 11:47 AM CREATININE 0.99 (H) 12/12/2016 04:14 AM CREATININE 0.96 (H) 01/19/2016 10:52 AM Lab Results Component Value Date/Time TSH 5.24 (H) 05/02/2017 11:47 AM TSH 3.87 12/12/2016 04:14 AM TSH 5.89 (H) 01/19/2016 10:52 AM Lab Results Component Value Date/Time VITAMIN [...] circumstances Diabetes plan reviewed with patient. Will check HgA1C before next visit. 2. Hypercalcemia - Most likely primary hyperparathyroidism. H/o high PTH Better calcium levels lately - WNL. needs to stay well hydrated. Conservative management. Will check BMP before next visit. 3. Hypokalemia - takes HCTZ, KCL 40 mEq daily, but needs to be monitored by a physician prescribingher diuretics. 4. Thyroid nodules - stable, small cystic. Last ultrasound was done in 02/2015. Subclinical hypothyroidism. Slightly high TSH, c/o weight gain and fatigue. Was on Levothyroxine 25 mcg daily, stopped taking due to hair loss. Repeat thyroid ultrasound when she can. Repeat TSH before next visit. Patient is to call if experiences increase [...] st Contact Info) Description 07/12/2024 2:30 PM ROLL EDGE MACHINE OPERATOR Office Visit [facility] Oncology and Hematology - [place] [address] [place] [address] Ovidio Nolen MD [address] [facility] [address] [place] [address] documented as of this encounter Results * US HEAD NECK TISSUES (10/17/2017 10:53 AM CDT) Anatomical Region Laterality Modality Head Ultrasound 10/17/2017 10:5 4 AM CDT Impressions 10/17/2017 12:32 PM CDT IMPRESSION: Interval development of a highly suspicious nodule (TI-RADS 5) in the left lower pole. Fine-needle aspiration is recommended for nodules greater than or equal to 1 cm. Recommend continued follow-up given small size. DICTATION LOCATION: [address] 10/17/2017 12:32 PM CDT US HEAD NECK TISSUES DATE: 10/17/2017 10:53 AM HISTORY: Multiple thyroid nodules. COMPARISON: 03/06/2015 FINDINGS: The thyroid is diffusely enlarged with multiple small cysts and nodules. The right lobe of the thyroid gland measures 4.3 x 1.9 x 1.5 cm. The left lobe of the thyroid gland measures 3.3 x 1.3 x 1.6 cm. In the right lower pole there is a predominantly cystic nodule that measures 0.7 x 0.7 x 0.7 cm, unchanged. In the left lower pole there is a solid, hypoechoic nodule with lobulated margin and calcifications. It measures 0.8 x 0.6 x 0.7 cm this was not definitely measured on prior study. No lymphadenopathy. Procedure Note Ashlee Wilson MD - 10/17/2017 US HEAD NECK TISSUES DATE: 10/17/2017 10:53 AM HISTORY: Multiple thyroid nodules. COMPARISON: 03/06/2015 FINDINGS: The thyroid is diffusely enlarged with multiple small cysts and nodules. The right lobe of the thyroid gland measures 4.3 x 1.9 x 1.5 cm. The left lobe of the thyroid gland measures 3.3 x 1.3 x 1.6 cm. In the right lower pole there is a predominantly cystic nodule that measures 0.7 x 0.7 x 0.7 cm, unchanged. In the left lower pole there is a solid, hypoechoic nodule with lobulated margin and calcifications. It measures 0.8 x 0.6 x 0.7 cm this was not definitely measured on prior study. No lymphadenopathy. IMPRESSION: Interval development of a highly suspicious nodule (TI-RADS 5) in the left lower pole. Fine-needle aspiration is recommended for nodules greater than or equal to 1 cm. Recommend continued follow-up given small size. DICTATION LOCATION: Location - [facility] Yuliya Ibarra MD ORDERABLES documented in this encounter Visit Diagnoses Diagnosis Type 2 diabetes mellitus without complication, without long-term current use of insulin- Primary Multiple thyroid nodules Nontoxic multinodular goiter Hypercalcemia Severe obesity (BMI 35.0-39.9) with comorbidity Multiple thyroid nodules Nontoxic multinodular goiter documented in this encounter Care Teams Vine Fruit Farming Supervisor Relationship Specialty Start Date End Date Jarrell Garrison MD PCP - General Geriatric Medicine 06/21/16 08/13/18 documented as of this encounter
--- OUTSIDE RECORDS SUMMARY | 2024-05-26 13:16 | XMS_ITS | Encounter Summary ---
Author Organization [facility] Address [address] [place] [address] Care Team Providers Care Power Bender Operator Name Role Phone Julian Payne MD Primary Care Provider [phone] Reason for Visit * Reason Onset Date Comments Medication Refill 03/04/2016 Encounter Details Date Type Department Care Team (Late st Contact Info) Description 03/04/2016 Refill [facility] Endocrinology [address] [place] [address] Yuliya Ibarra MD [address] [place] [address] Social History Tobacco Use Types [...] * Telephone Encounter - Bekah Wang - 03/04/2016 2:26 PM CDT galo 01/19/16 , nov 06/21/16 documented in this encounter Plan of Treatment Upcoming Encounters Date Type Department Care Team (Late st Contact Info) Description 07/12/2024 2:30 PM DRAFTING CLERK Office Visit [facility] Oncology and Hematology - [place] [address] [facility] [facility] [address] [place] [address] Ovidio Nolen MD [address] [facility] [address] [place] [address] documented as of this encounter Visit Diagnoses Not on filedocumented in this encounter Care Teams Power Bender Operator Relationship Specialty Start Date End Date Julian Payne MD PCP - General Internal Medicine 06/23/15 06/20/16 documented as of this encounter
--- OUTSIDE RECORDS SUMMARY | 2024-05-26 13:16 | XMS_ITS | Encounter Summary ---
Author Organization [facility] Address [address] [place] [address] Care Team Providers Care Doll Surgeon Name Role Phone Jarrell Garrison MD Primary Care Provider [phone] Reason for Visit * Reason Onset Date Comments Question 11/03/2017 fna Encounter Details Date Type Department Care Team (Late st Contact Info) Description 11/03/2017 Telephone [facility] Endocrinology [address] [place] [address] Yuliya Ibarra MD [address] [place] [address] Question (fna) Social History Tobacco Use Types Packs/Day Years [...] * Telephone Encounter - Kati Quintero - 11/03/2017 11:31 AM CDT Pt kathy Bekah called and stated that she spoke with neurologist and he approved pt to get fna but wanted to know what medication they would be using. Pt kathy given interventional radiology phone # to contact to get info to pass on to neurologist. documented in this encounter Plan of Treatment Upcoming Encounters Date Type Department Care Team (Late st Contact Info) Description 07/12/2024 2:30 PM CHAIR CAR DRIVER Office Visit [facility] Oncology and Hematology - [place] [address] [facility] [address] [place] [address] Ovidio Nolen MD [address] [facility] [address] [place] [address] documented as of this encounter Visit Diagnoses Not on filedocumented in this encounter Care Teams Doll Surgeon Relationship Specialty Start Date End Date Jarrell Garrison MD PCP - General Geriatric Medicine 06/21/16 08/13/18 documented as of this encounter
--- OUTSIDE RECORDS SUMMARY | 2024-05-26 13:16 | XMS_ITS | Encounter Summary ---
Author Organization [employer] [facility] Address [address] [place] [address] Care Team Providers Care Vp Communications Name Role Phone Julian Payne MD Primary Care Provider [phone] Encounter Details Date Type Department Care Team (Latest Contact Info) Description 01/19/2016 10:49 AM CDT - 01/19/2016 11:59 PM T Hospital Encounter [facility] Laboratory Services Medical [place] A [address] [place] [address] Yuliya Ibarra MD [address] [place] [address] Discharge Disposition: Home or Self [...] Sig Dispensed Refills Start Date End Date lancets (FREESTYLE LANCETS) 28 gauge 100 Each [...] mcg by mouth daily. multivitamin (DAILY-BRYON) Oral tabletIndications:inst ructed to stop prior to surgery Take 1 Tab by mouth daily. Indications: instructed to stop prior to surgery FREESTYLE LITE STRIPS Strip TEST BLOOD SUGARS TWICE A DAY 200 Strip 1 01/03/2016 02/11/2017 JANUVIA 100 mg Tablet TAKE 1 TABLET DAILY WITH BREAKFAST 90 Tablet 1 12/15/2015 06/07/2016 potassium chloride (KLOR-CON) 10 mEq Extended Release tablet TAKE 4 TABLETS DAILY WITH BREAKFAST 360 Tablet 1 12/15/2015 06/15/2016 glimepiride (AMARYL) 1 mg tabletIndications:Diab etes mellitus type II, uncontrolled TAKE 1 AND A HALF TABS WITH BREAKFAST TAKE 2 TABLET AT LUNCH AND TAKE 2 1/2 TABLET AT DINNER. 540 Tablet 1 10/06/2015 05/15/2016 Insulin [place], Disposable, (HAYDEN PEN NEEDLE) 32 gauge x 5/32 Needle To use one daily DX E11.65. 100 Each 1 08/17/2015 03/04/2016 insulin detemir (LEVEMIR FLEXTOUCH) 100 unit/mL Insulin Pen 10 units sq daily in am. 15 mL 0 08/09/2015 01/21/2016 valsartan (DIOVAN) 80 mg Oral tablet Take 80 mg by mouth daily. 06/21/2016 documented as of this encounter Plan of Treatment Upcoming Encounters Date Type Department Care Team (Late st Contact Info) Description 07/12/2024 2:30 PM OIL SALES AND SERVICE REP Office Visit [facility] Oncology and Hematology - [place] [address] [place] [address] Ovidio Nolen MD [address] [facility] [facility] [address] [place] [address] documented as of this encounter Procedures Procedure Name Priority Date/Time Associated Diagnosis Comments MICROALBUMIN/CREATIN INE RATIO, RANDOM UR Routine 01/19/2016 10:54 AM CDT Type 2 diabetes mellitus not at goal Elevated TSH TSH Routine 01/19/2016 10:52 AM CDT Elevated TSH HEMOGLOBIN A1C Routine 01/19/2016 10:52 AM CDT Type 2 diabetes mellitus not at goal BASIC METABOLIC PANEL Routine 01/19/2016 10:52 AM CDT Type 2 diabetes mellitus not at goal documented in this encounter Results * MICROALBUMIN/CREATININE RATIO, RANDOM UR (01/19/2016 10:54 AM CDT) MICROALBUMIN, URINE <1.2 mg/dL 01/19/2016 12:41 PM CDT [facility] [employer] [facility] CREATININE, URINE 68.3 29.0 - 226.0 mg/dL 01/19/2016 12:41 PM T [facility] [employer] [facility] Comment: Reference Range varies with fluid intake and diet. Urine URINE SPECIMEN OBTAINED BY CLEAN CATCH PROCEDURE / Unknown Collection / Unknown 01/19/2016 10:54 AM CDT 01/19/2016 11:13 AM CDT Narrative [facility] [employer] [facility] - 01/19/2016 12:41 PM CDT Condition ? Microalbumin/Creat ratio Normal Males ? <17 Normal Females ? <25 Microalbuminuria Males ?17-299 Microalbuminuria Females ?25-299 Overt proteinuria ? >=300 Unable to calculate urine microalbumin/creatinine ratio due to below linear urine microalbumin result. Yuliya Ibarra MD URINE ORDERABLES [facility] [id number] [address] [place] [address] * (ABNORMAL) BASIC METABOLIC PANEL (01/19/2016 10:52 AM CDT) SODIUM 144 136 - 145 mmol/L 01/19/2016 12:39 PM T [employer] - . [facility] POTASSIUM 4.0 3.5 - 5.0 mmol/L 01/19/2016 12:39 PM T [employer] [facility] - [facility] CHLORIDE 106 98 - 107 mmol/L 01/19/2016 12:39 PM T [employer] [facility] - . [facility] CO2 25 22 - 29 mmol/L 01/19/2016 12:[address] [facility] [employer] [facility] - . [facility] CALCIUM 9.9 8.6 - 10.2 mg/dL 01/19/2016 12:39 PM T [employer] [facility] - . [place] BUN 23 8 - 23 mg/dL 01/19/2016 12:39 PM T [employer] [facility] - . [facility] CREATININE 0.96(H) 0.51 - 0.95 mg/dL 01/19/2016 12:[address] [facility] [employer] SERVICES [facility] Comment: The GFR result is not clinically significant on patients <18 or >70 years of age. GLUCOSE 104(H) 74 - 99 mg/dL 01/19/2016 12:[address] [facility] [employer] [facility] - [facility] GFR 56 mL/min/1.7 3 sq meter 01/19/2016 12:[address] [facility] [employer] [facility] Comment: eGFR has not been validated [...] mL/min/1.7 3 sq meter 01/19/2016 12:39 PM CDT [facility] LABORAT[facility] ANION GAP 13 8 - 16 mmol/L 01/19/2016 12:39 PM CDT [facility] Blood Venipuncture - L ab Collect / Unknown 01/19/2016 10:52 AM CDT 01/19/2016 11:57 AM CDT Yuliya Ibarra MD CHEMISTRY ORDERABLES Performing Organization Address [facility] Co de Phone Number [facility] CLIA# [id number] [address] [place] [address] * (ABNORMAL) TSH (01/19/2016 10:52 AM CDT) TSH 5.89(H) 0.27 - 4.20 uIU/mL 01/19/2016 12:43 PM CDT [facility] Blood Venipuncture - L ab Collect / Unknown 01/19/2016 10:52 AM CDT 01/19/2016 11:57 AM CDT Yuliya Ibarra MD CHEMISTRY ORDERABLES Performing Organization Address [facility] Co de Phone Number [facility] CLIA# [id number] [address] [place] [address] * (ABNORMAL) HEMOGLOBIN A1C (01/19/2016 10:52 AM CDT) HEMOGLOBIN A1C 6.9(H) 4.0 - 6.0 % 01/19/2016 1:11 PM CDT [facility] LAB[facility] Comment:Note: Effective as o f 06/09/2015 a new methodology, Turbidimetric inhibition immunoassay (TINIA),has been implemented. EST. AVG GLUCOSE, A1C 151 mg/dL 01/19/2016 1:11 PM T [facility] Blood Venipuncture - L ab Collect / Unknown 01/19/2016 10:52 AM CDT 01/19/2016 11:57 AM CDT Yuliya Ibarra MD CHEMISTRY ORDERABLES Performing Organization Address City/State/[facility] Co de Phone Number [facility]# [id number] [address] [place] [address] documented in this encounter Visit Diagnoses Diagnosis Type 2 diabetes mellitus not at goal Type II or unspecified type diabetes mellitus without mention of complication, uncontrolled Elevated TSH Other abnormal blood chemistry documented in this encounter Care Teams Vp Communications Relationship Specialty Start Date End Date Julian Payne MD PCP - General Internal Medicine 06/23/15 06/20/16 documented as of this encounter
--- OUTSIDE RECORDS SUMMARY | 2024-05-26 13:16 | XMS_ITS | Encounter Summary ---
Author Organization [facility] Address [address] [place] [address] Care Team Providers Care Learning Support Assistant Name Role Phone Jarrell Garrison MD Primary Care Provider [phone] Reason for Visit * Reason Onset Date Comments Results 05/02/2017 Encounter Details Date Type Department Care Team (Late st Contact Info) Description 05/02/2017 Patient Outreach [facility] Endocrinology [address] [place] [address] Yuliya Ibarra MD [address] [place] [address] Results Social History Tobacco Use [...] * Telephone Encounter - Kati Quintero - 05/02/2017 4:08 PM PROFESSIONAL ORGANIZER Spoke to pt and informed of results and instructions. Pt confirmed she is no longer taking the Levothyroxine due to hair loss in past- discontinued on med list. No f/u thyroid labs to be done. Results routed and forwarded to pcp. ESSIONAL ORGANIZER * Telephone Encounter - Basil Kati Simons - 05/02/2017 4:04 PM PROFESSIONAL ORGANIZER ----- Message from Yuliya Ibarra MD sent at 05/02/2017 3:55 PM PROFESSIONAL ORGANIZER ----- Normal urine test. Slightly higher HgA1C, but still acceptable. Her potassium is low - needs to contact the doctor, who is prescribing water pills to her for potassium recommendations. Please fax results to her PCP as well. Thyroid level is off - please make sure she is taking her medicine and if so, increase her dose to 50 mcg Repeat TSH in 6 weeks. ESSIONAL ORGANIZER documented in this encounter Plan of Treatment Upcoming Encounters Date Type Department Care Team (Late st Contact Info) Description 07/12/2024 2:30 PM PROFESSIONAL ORGANIZER Office Visit [facility] Oncology and Hematology - [place] [address] [address] [facility] [address] [place] [address] Ovidio Nolen MD [address] [facility] [place] [address] documented as of this encounter Visit Diagnoses Not on filedocumented in this encounter Care Teams Learning Support Assistant Relationship Specialty Start Date End Date Jarrell Garrison MD PCP - General Geriatric Medicine 06/21/16 08/13/18 documented as of this encounter
--- OUTSIDE RECORDS SUMMARY | 2024-05-26 13:16 | XMS_ITS | Encounter Summary ---
Author Organization [facility] Address [address] [place] [address] Care Team Providers Care Metallurgical Engineering Teacher Name Role Phone Jarrell Garrison MD Primary Care Provider [phone] Reason for Visit * Reason Comments Medication Refill Encounter Details Date Type Department Care Team (Late st Contact Info) Description 06/01/2017 Refill [facility] Endocrinology [address] [place] [address] Yuliya Ibarra MD [address] [place] [address] Social History Tobacco Use Types [...] Telephone Encounter - Helena Chan RMA - 06/02/2017 5:21 PM AUTOMOTIVE CONSULTANT Nov 07/22/17, ca 08/15/17, galo 05/02/17 MOTIVE CONSULTANT documented in this encounter Plan of Treatment Upcoming Encounters Date Type Department Care Team (Late st Contact Info) Description 07/12/2024 2:30 PM AUTOMOTIVE CONSULTANT Office Visit [facility] Oncology and Hematology - Oscar [address] [place] [address] Ovidio Nolen MD [address] [facility] [address] [place] [address] documented as of this encounter Visit Diagnoses Not on filedocumented in this encounter Care Teams Metallurgical Engineering Teacher Relationship Specialty Start Date End Date Jarrell Garrison MD PCP - General Geriatric Medicine 06/21/16 08/13/18 documented as of this encounter
--- OUTSIDE RECORDS SUMMARY | 2024-05-26 13:16 | XMS_ITS | Encounter Summary ---
Author Organization [facility] Address [address] [place] [address] Care Team Providers Care Marketing Editor Name Role Phone Jarrell Garrison MD Primary Care Provider [phone] Reason for Visit * Reason Comments Diabetes Encounter Details Date Type Department Care Team (Late st Contact Info) Description 01/23/2018 1:00 PM CDT Office Visit [facility] Endocrinology [address] [place] [address] Yuliya Ibarra MD [address] [place] [address] Type 2 diabetes mellitus without complication, without long-term current use of insulin (Primary Dx); Multiple thyroid nodules; Subclinical hypothyroidism; Obesity (BMI 30.0-34.9); Osteopenia of multiple sites Social History Tobacco Use Types Packs/Day Years [...] Sign Reading Time Taken Comments Blood Pressure 140/76 01/23/2018 1:04 PM CDT Pulse 80 01/23/2018 1:04 PM CDT Temperature - - Respiratory Rate - - Oxygen Saturation - - Inhaled Oxygen Concentration - - Weight 87.5 kg (193 lb) 01/23/2018 1:04 PM CDT Height 165.1 cm (5' 5 ) 01/23/2018 1:04 PM CDT Body Mass Index 32.12 01/23/2018 1:04 PM CDT documented in this encounter Progress Notes * Yuliya Ibrara MD - 01/23/2018 1:10 PM CDT [facility] Endocrinology Yuliya Ibarra M.D. PCP: Dr. Julian Payne Rapid Transit Operator: Dr. Alexandre Reese Neurologist: Dr. Nelson Ross Generator Operator Straight Bevel Gear: Dr. Krishan Moran Vascular Surgeon: Dr. Elle Landaverde Management Professionals: Dr. Laz Valencia Senior Market Research Analyst: Dr. Phuong Callejas Reason for visit: DM [...] 6 units qhs, Jardiance 10 mg daily. Some low am sugars. She lost weight since last visit. She is staying well hydrated. Could not tolerate Metformin secondary to diarrhea. Checks her blood sugars 2 times daily, reviewed patient's numbers. Mostly controlled in am, higher before dinner. She tells me she is going out to eat more and sugars are higher then. Glucometer: has one. Last eye exam: 3 months ago - has glaucoma. No hypoglycemia. Goes to a tafe lecturer. Patient was found to have hypercalcemia, parathyroid [...] tells me she is taking new diuretics. She is using a walker and she is experiencing frequent falls. Review of Systems: Endo/Gen: Her weight has [...] Outpatient Prescriptions Medication Sig Dispense Refill ??? anastrozole (ARIMIDEX) 1 mg tablet Take 1 mg by mouth. ??? Calcium Carbonate-Vit D3-Min 600 mg calcium- 400 unit Tablet Take 1 Tablet by mouth. ??? furosemide (LASIX) 40 mg tablet Take 40 mg by mouth. ??? linaclotide (LINZESS) 145 mcg capsule Take 145 mcg by mouth. ??? HAYDEN PEN NEEDLE 32 gauge x 5/32 Needle USE TO INJECT INSULIN ONCE DAILY 100 Each 3 ??? glimepiride (AMARYL) 1 mg tablet TAKE ONE AND ONE-HALF TABLETS WITH BREAKFAST, TWO TABLETS AT LUNCH, AND TWO AND ONE-HALF TABLETS AT DINNER. 540 Tablet 0 ??? sitaGLIPtin (JANUVIA) 100 mg Tablet TAKE 1 TABLET DAILY WITH BREAKFAST. 90 Tablet 0 ??? empagliflozin (JARDIANCE) 10 mg tablet Take 1 Tablet (10 mg) by mouth daily welfare visitor. 90 Tablet 1 ??? metOLazone (ZAROXOLYN) 2.5 [...] THE MORNING. ) 15 mL 2 ??? HYPROMELLOSE (SYSTANE GEL OP) by Ophthalmic [...] to stop prior to surgery ??? albuterol HFA 90 mcg inhaler Take 2 Puffs by mouth. ??? aspirin-calcium carbonate 81 mg-300 mg calcium(777 mg) Tablet Take 81 mg by mouth. ??? flecainide (TAMBOCOR) 50 mg Tablet Take 50 mg by mouth. ??? latanoprost (XALATAN) 0.005 % solution 1 Drop. ??? Menthol-Zinc Oxide (CALMOSEPTINE) 0.44-20.6 % Ointment Apply to affected area. ??? polyethylene glycol (MIRALAX) 17 gram Powder in Packet Take 17 Grams by mouth. ??? verapamil (VERELAN) 240 mg Sustained Release 24 hour capsule Take 240 mg by mouth. No current facility-administered medications for this visit. Social History: Social History Social History ??? Marital status: Spouse name: N/A ??? Number of children: N/A ??? Years of education: N/A Occupational History ??? [employer] Social History Main Topics ??? Smoking status: [...] ??? Cancer skin ??? CVD (cerebrovascular disease) 2829-2324 TIA x2 ??? Diabetes no medication at [...] disorder 2001 after stroke-none since ??? Shingles [id number] x3 ??? Spondylolisthesis l4-l5 Patient Active Problem [...] HX HYSTERECTOMY 1986 ??? HX KNEE ARTHROSCOPY [id number] right knee ??? HX SURGICAL OTHER 1975 ulcer removed from vocal cord ??? HX SURGICAL OTHER 1985 surgery for broken nose ??? HX SURGICAL OTHER 09/10/2010 ANTERIOR POSTERIOR REPAIR performed by FRANKLYN PACK at [facility] OR MAIN ??? WA ANTERIOR COLPORRAPHY RPR CYSTOCELE W/CYSTO 09/10/2010 CYSTOCELE REPAIR performed by FRANKLYN PACK at [facility] OR MAIN ??? WA POST COLPORRHAPHY,RECTUM/VAGINA 09/10/2010 RECTOCELE REPAIR performed by FRANKLYN PACK at [facility] OR MAIN ??? WA REPAIR ENTEROCELE,VAG APPRCH 09/10/2010 ENTEROCELE REPAIR VAGINAL APPROACH performed by FRANKLYN PACK at [facility] OR MAIN ??? WA REPAIR OF PERINEUM,NON OBSTETRICAL 09/10/2010 PERINEOPLASTY performed by FRANKLYN PACK at [facility] OR [facility] ??? WA REPR VAGINAL PROLAPSE,SACROSP LIG 09/10/2010 SACROSPINOUS LIGAMENT FIXATION performed by FRANKLYN PACK at [facility] OR [facility] Physical Findings: Wt Readings from Last 3 Encounters: 01/23/18 87.5 kg (193 lb) 09/15/17 95.7 kg (211 lb) 05/02/17 95.3 kg (210 lb) BP (!) 140/76 (BP Location: Left arm, Patient Position (BP): Sitting, BP Cuff Size: Adult) Pulse 80 Ht 5' 5 (1.651 m) Wt 87.5 kg (193 lb) BMI 32.12 kg/m?? Elevated blood pressure Physical Exam: General appearance: alert, [...] 0.81 Calcium 10.[address] [facility] lab result done on 04/19/14 [...] with her. Improved blood glucose. Continue current medications and d/c Levemir for now due to am hypoglycemia Needs to let me know if problems. Diabetes plan reviewed with patient. Will check HgA1C, CMP. 2. H/o Hypercalcemia - Most likely primary hyperparathyroidism. H/o high PTH Mild osteopenia per DEXA scan. needs to stay well hydrated. Conservative management. Needs to avoid falls. 3. Hypokalemia - takes Lasix at this time, KCL 40 mEq daily, but needs to be monitored by a physician prescribing her diuretics. 4. Thyroid nodules - Subclinical hypothyroidism. Post left nodule FNA w/ benign results. Lost weight since last visit. Was on Levothyroxine 25 mcg daily, stopped taking due to hair loss. Repeat TSH. Patient is to call if [...] time. Sincerely, Yuliya Ibarra MD * Helena Chan, [facility] - 01/23/2018 1:09 PM CDT Pt here for dm. documented in this encounter Plan of Treatment Upcoming Encounters Date Type Department Care Team (Late st Contact Info) Description 07/12/2024 2:30 PM POLICY WRITER Office Visit [facility] Oncology and Hematology - Oscar [address] [facility] [address] [place] [address] Ovidio Nolen MD [address] [facility] [address] [place] [address] documented as of this encounter Results * (ABNORMAL) HEMOGLOBIN A1C (01/23/2018 1:48 PM CDT) HEMOGLOBIN A1C 6.8(H) 4.0 - 6.0 % 01/23/2018 6:09 PM CDT [facility] LABORATORY [facility] EST. AVG GLUCOSE, A1C 148 mg/dL 01/23/2018 6:09 PM CDT [facility] Blood Venipuncture / Unknown 01/23/2018 1:48 PM CDT 01/23/2018 2:21 PM CDT Narrative [facility] LABORATORY [facility] - 01/23/2018 6:09 PM CDT HGB A1C INTERPRETATION NORMAL: ? <5.7% PRE-DIABETES: 5.7 - 6.4% DIABETES: ? 6.5% OR GREATER Yuliya Ibarra MD CHEMISTRY ORDERABLES [facility] CLIA# [id number] [address] [facility] [address] [address] * (ABNORMAL) COMPREHENSIVE METABOLIC PANEL (01/23/2018 1:48 PM CDT) SODIUM 140 136 - 145 mmol/L 01/23/2018 3:30 PM CDT [facility] POTASSIUM 4.3 3.5 - 5.0 mmol/L 01/23/2018 3:30 PM [facility] LAB[facility] - . [facility] CHLORIDE 102 98 - 107 mmol/L 01/23/2018 3:30 PM [facility]OR[facility]ORY [facility] - [facility] CO2 24 22 - 29 mmol/L 01/23/2018 3:30 PM [facility] - . [facility] CALCIUM 10.2 8.6 - 10.2 mg/dL 01/23/2018 3:30 PM [facility] - . [place] BUN 14 8 - 23 mg/dL 01/23/2018 3:30 PM [facility] - . [facility] CREATININE 0.79 0.51 - 0.95 mg/dL 01/23/2018 3:30 PM [facility]OR[facility] - [facility] Comment: The GFR result is not clinically significant on patients <18 or >70 years of age. GLUCOSE 100(H) 74 - 99 mg/dL 01/23/2018 3:30 PM [facility] - [facility] TOTAL PROTEIN 6.2(L) 6.7 - 8.6 g/dL 01/23/2018 3:30 PM [facility] - . [facility] ALBUMIN 3.9 3.5 - 5.2 g/dL 01/23/2018 3:30 PM [facility] - . [facility] BILIRUBIN TOTAL 0.2 0.2 - 1.1 mg/dL 01/23/2018 3:30 PM [facility] - . [facility] ALKALINE PHOSPHATASE 76 35 - 104 U/L 01/23/2018 3:30 PM [facility] - . [facility] AST 18 <33 U/L 01/23/2018 3:30 PM [facility] - . [facility] ALT 13 <34 U/L 01/23/2018 3:30 PM [facility] - . [facility] GFR >60 mL/min/1.7 3 sq meter 01/23/2018 3:30 PM [facility] - . [facility] Comment: eGFR has not been validated for [...] 3 sq meter 01/23/2018 3:30 PM CDT [facility] LABORATORY [facility] ANION GAP 14 8 - 16 mmol/L 01/23/2018 3:30 PM CDT [facility] LABORATORY [facility] Blood Venipuncture / Unknown 01/23/2018 1:48 PM CDT 01/23/2018 2:17 PM CDT Narrative [facility] LABORATORY [facility] - 01/23/2018 3:30 PM CDT Samples containing indocyanine green cause interferences on Total and/or Direct Bilirubin and must not be measured. Yuliya Ibarra MD CHEMISTRY ORDERABLES Performing Organization Address City/[facility]/ZIP Co de Phone Number [facility] [employer] [facility] CLIA# [id number] [address] [place] [address] * (ABNORMAL) TSH (01/23/2018 1:48 PM CDT) TSH 10.34(H) 0.27 - 4.20 uIU/mL 01/23/2018 3:35 PM CDT [facility] LABORATORY [facility] Blood Venipuncture / Unknown 01/23/2018 1:48 PM CDT 01/23/2018 2:17 PM CDT Yuliya Ibarra MD CHEMISTRY ORDERABLES [facility] CLIA# [id number] [address] [place] [address] documented in this encounter Visit Diagnoses Diagnosis Type 2 diabetes mellitus without complication, without long-term current use of insulin- Primary Multiple thyroid nodules Nontoxic multinodular goiter Subclinical hypothyroidism Other specified acquired hypothyroidism Obesity (BMI 30.0-34.9) Obesity, unspecified Osteopenia of multiple sites documented in this encounter Care Teams Marketing Editor Relationship Specialty Start Date End Date Jarrell Garrison MD PCP - General Geriatric Medicine 06/21/16 08/13/18 documented as of this encounter
--- OUTSIDE RECORDS SUMMARY | 2024-05-26 13:16 | XMS_ITS | Encounter Summary ---
Author Organization [facility] Address [address] [place] [address] Care Team Providers Care Film Loader Name Role Phone Julian Payne MD Primary Care Provider [phone] Encounter Details Date Type Department Care Team (Late st Contact Info) Description 03/26/2016 Abstract [facility] Endocrinology [address] [place] [address] Yuliya Ibarra MD [address] [place] [address] Social History Tobacco Use Types [...] st Contact Info) Description 07/12/2024 2:30 PM SATELLITE PROJECT SITE MONITOR Office Visit [facility] Oncology and Hematology - Oscar [address] [place] [address] Ovidio Nolen MD [address] [facility] [address] [place] [address] documented as of this encounter Visit Diagnoses Not on filedocumented in this encounter Care Teams Film Loader Relationship Specialty Start Date End Date Julian Payne MD PCP - General Internal Medicine 06/23/15 2 documented as of this encounter
--- OUTSIDE RECORDS SUMMARY | 2024-05-26 13:16 | XMS_ITS | Encounter Summary ---
Author Organization [facility] Address [address] [place] [address] Care Team Providers Care Policy Writer Typist Name Role Phone Julian Payne MD Primary Care Provider [phone] Encounter Details Date Type Department Care Team (Late st Contact Info) Description 03/12/2016 Abstract [facility] Endocrinology [address] [place] [address] Yuliya Ibarra MD [address] [place] [address] Social History Tobacco Use Types [...] st Contact Info) Description 07/12/2024 2:30 PM ART COORDINATOR Office Visit [facility] Oncology and Hematology - Oscar [address] [facility] [address] [place] [address] Ovidio Nolen MD [address] [facility] [address] [place] [address] documented as of this encounter Visit Diagnoses Not on filedocumented in this encounter Care Teams Policy Writer Typist Relationship Specialty Start Date End Date Julian Payne MD PCP - General Internal Medicine 06/23/15 2 documented as of this encounter
--- OUTSIDE RECORDS SUMMARY | 2024-05-26 13:16 | XMS_ITS | Encounter Summary ---
Author Organization [facility] Address [address] [place] [address] Care Team Providers Care Clay Carman Name Role Phone Jarrell Garrison MD Primary Care Provider [phone] Reason for Visit * Reason Onset Date Comments Information 10/22/2017 fna procedure Encounter Details Date Type Department Care Team (Late st Contact Info) Description 10/22/2017 Telephone [facility] Endocrinology [address] [place] [address] Yuliya Ibarra MD [address] [place] [address] Information (fna procedure) Social History Tobacco Use Types Packs/Day Years [...] * Telephone Encounter - Kati Quintero - 10/22/2017 3:27 PM CDT Spoke to pt daughter and informed of instructions. She voiced understanding [facility] * Telephone Encounter - Yuliya Ibarra MD - 10/22/2017 9:16 AM CDT This procedure is not done under complete sedation. She can try taking Ativan before the procedure and see if she can tolerate it. She may also ask her neurologist for advise. Not sure what else to recommend. She can try calling [facility] department for FNA, but I think they will tell her the same. Another option is to follow-up with thyroid ultrasounds * Telephone Encounter - Basil Kati Simons - 10/22/2017 8:58 AM CDT Yesterday daughter called and stated that in regard to the fna she needs to do; she does not feel that she can tolerate the procedure unless she is put to sleep due to her condition that causes her to have leg jerking. [email or web address] was also contacted by the daughter and informed that they do not do complete sedation for this procedure. Pt can be administered medication to relax her but not completely to sleep. Please advise. documented in this encounter Plan of Treatment Upcoming Encounters Date Type Department Care Team (Late st Contact Info) Description 07/12/2024 2:30 PM INFECTIOUS DISEASE TECHNICIAN Office Visit [facility] Oncology and Hematology - Oscar [address] [facility] [address] [place] [address] Ovidio Nolen MD [address] [facility] [address] [place] [address] documented as of this encounter Visit Diagnoses Not on filedocumented in this encounter Care Teams Clay Carman Relationship Specialty Start Date End Date Jarrell Garrison MD PCP - General Geriatric Medicine 06/21/16 08/13/18 documented as of this encounter
--- OUTSIDE RECORDS SUMMARY | 2024-05-26 13:16 | XMS_ITS | Encounter Summary ---
Author Organization [facility] Address [address] [place] [address] Care Team Providers Care Worm Packer Name Role Phone Julian Payne MD Primary Care Provider [phone] Reason for Visit * Reason Onset Date Comments Results 01/19/2016 Encounter Details Date Type Department Care Team (Late st Contact Info) Description 01/19/2016 Telephone [facility] Endocrinology [address] [place] [address] Yuliya Ibarra MD [address] [place] [address] Results Social History Tobacco Use [...] encounter Miscellaneous Notes * Telephone Encounter - Susan Garcia - 01/19/2016 2:28 PM CDT Spoke with pt about result She voice understanding documented in this encounter Plan of Treatment Upcoming Encounters Date Type Department Care Team (Late Contact Info) Description 07/12/2024 2:30 PM TECHNOLOGY ADMINISTRATOR Office Visit [facility] Oncology and Hematology - Oscar [address] [facility] [address] [place] [address] Ovidio Nolen MD [address] [facility] [address] [place] [address] documented as of this encounter Visit Diagnoses Not on filedocumented in this encounter Care Teams Worm Packer Relationship Specialty Start Date End Date Julian Payne MD PCP - General Internal Medicine 06/23/15 06/20/16 documented as of this encounter
--- OUTSIDE RECORDS SUMMARY | 2024-05-26 13:16 | XMS_ITS | Encounter Summary ---
[facility] Organization [facility] Address [address] [place] [address] Care Team Providers Care Consumer Credit Counselor Name Role Phone Jarrell Garrison MD Primary Care Provider [phone] Reason for Visit * Reason Onset Date Comments Medication Refill 10/10/2017 Encounter Details Date Type Department Care Team (Late st Contact Info) Description 10/10/2017 Refill [facility] Endocrinology [address] [place] [address] Yuliya Ibarra MD [address] [place] [address] Social History Tobacco Use Types [...] * Telephone Encounter - Bekah Wang - 10/10/2017 6:09 PM CDT galo 09/15/17 , nov 01/23/18 documented in this encounter Plan of Treatment Upcoming Encounters Date Type Department Care Team (Late st Contact Info) Description 07/12/2024 2:30 PM DIRECTOR OF RECREATION THERAPY Office Visit [facility] Oncology and Hematology - Oscar [address] [facility] [address] [place] [address] Ovidio Nolen MD [address] [facility] [address] [place] [address] documented as of this encounter Visit Diagnoses Not on filedocumented in this encounter Care Teams Consumer Credit Counselor Relationship Specialty Start Date End Date Jarrell Garrison MD PCP - General Geriatric Medicine 06/21/16 08/13/18 documented as of this encounter
--- OUTSIDE RECORDS SUMMARY | 2024-05-26 13:17 | XMS_ITS | Encounter Summary ---
Author Organization [facility] Address [address] [place] [address] Care Team Providers Care Turn Supervisor Name Role Phone Julian Payne MD Primary Care Provider [phone] Reason for Visit * Reason Comments Medication Refill Encounter Details Date Type Department Care Team (Late st Contact Info) Description 08/08/2015 Refill [facility] Endocrinology [address] [place] [address] Yuliya Ibarra MD [address] [place] [address] Social History Tobacco Use Types [...] * Telephone Encounter - Bekah Wang - 08/09/2015 3:05 PM CDT galo 06/23/15 , nov 09/22/15 documented in this encounter Plan of Treatment Upcoming Encounters Date Type Department Care Team (Late st Contact Info) Description 07/12/2024 2:30 PM MANUFACTURING MILLWRIGHT Office Visit [facility] Oncology and Hematology - Oscar [address] [facility] [address] [place] [address] Ovidio Nolen MD [address] [facility] [address] [place] [address] documented as of this encounter Visit Diagnoses Not on filedocumented in this encounter Care Teams Turn Supervisor Relationship Specialty Start Date End Date Julian Payne MD PCP - General Internal Medicine 06/23/15 06/20/16 documented as of this encounter
--- OUTSIDE RECORDS SUMMARY | 2024-05-26 13:17 | XMS_ITS | Encounter Summary ---
Author Organization [facility] Address [address] [place] [address] Care Team Providers Care Alteration Worker Name Role Phone Grupo Garcia MD Primary Care Provider Unavailab le Reason for Visit * Reason Comments Medication Refill Encounter Details Date Type Department Care Team (Late st Contact Info) Description 05/31/2015 Refill [facility] Endocrinology [address] [place] [address] Yuliya Ibarra MD [address] [place] [address] Social History Tobacco Use Types [...] * Telephone Encounter - Kati Quintero - 06/01/2015 8:19 AM CHIN STRAP CUTTER Nov 06/23/15 galo 02/24/15 STRAP CUTTER documented in this encounter Plan of Treatment Upcoming Encounters Date Type Department Care Team (Late st Contact Info) Description 07/12/2024 2:30 PM CHIN STRAP CUTTER Office Visit [facility] Oncology and Hematology - [place] [address] [place] [address] Ovidio Nolen MD [address] [place] [address] documented as of this encounter Visit Diagnoses Not on filedocumented in this encounter Care Teams Alteration Worker Relationship Specialty Start Date End Date Grupo Garcia MD PCP - General Internal Medicine 08/14/10 2 documented as of this encounter
--- OUTSIDE RECORDS SUMMARY | 2024-05-26 13:17 | XMS_ITS | Encounter Summary ---
Author Organization [facility] Address [address] [place] [address] Care Team Providers Care Assault Amphibious Vehicle Crewman Name Role Phone Julian Payne MD Primary Care Provider Reason for Visit * Reason Onset Date Comments Results 08/25/2015 Encounter Details Date Type Department Care Team (Late st Contact Info) Description 08/25/2015 Telephone [facility] Endocrinology [address] [place] [address] Yuliya Ibarra MD [address] [place] [address] Results Social History Tobacco Use [...] * Telephone Encounter - Kati Quintero - 08/25/2015 8:38 AM CDT Called pt and lmovm of results form [facility]. Results scanned to [facility] documented in this encounter Plan of Treatment Upcoming Encounters Date Type Department Care Team (Late st Contact Info) Description 07/12/2024 2:30 PM SKATE HOP Office Visit [facility] Oncology and Hematology - [place] [address] [place] [address] Ovidio Nolen MD [address] [facility] [address] [place] [address] documented as of this encounter Procedures Procedure Name Priority Date/Time Associated Diagnosis Comments MICROALBUMIN/CREATININ E RATIO, RANDOM UR Routine 08/18/2015 HEMOGLOBIN A1C Routine 08/18/2015 LIPID PANEL Routine 08/18/2015 documented in this encounter Results * (ABNORMAL) LIPID PANEL (08/18/2015) ABSTRACTED CHOLESTEROL NON [facility] ABSTRACTED TRIGLYCERIDE NON [facility] ABSTRACTED HDL NON [facility] ABSTRACTED LDL CALCULATED NON [facility] CHOLESTEROL 112 200 mg/dL NON [facility] CHOLESTEROL NON [facility] TRIGLYCERIDE 175(A) 150 mg/dL NON [facility] TRIGLYCERIDE NON [facility] HDL 27(A) 40 - 59 mg/dL NON [facility] HDL NON [facility] LDL CALCULATED 50 100 mg/dL NON [facility] LDL CALCULATED NON [facility] CALCULATED LDL CHOLESTEROL mg/dL NON [facility] CALCULATED TOTAL CHOLESTEROL TO HDL RATIO NON [facility] CHOL/HDL RATIO NON [facility] VLDL-3 (REMNANT LIPO) mg/dL NON [facility] LIPID PANEL COMMENT NON [facility] RISK FACTOR NON [facility] RESULT COMMENT, CHEMISTRY NON [facility] Blood specimen (specimen) 08/18/2015 Yuliya Ibarra MD CHEMISTRY ORDERABLES NON [facility] * MICROALBUMIN/CREATININE RATIO, RANDOM UR (08/18/2015) ABSTRACTED MICROALBUMIN,UR INE NON [facility] MICROALBUMIN, URINE mg/dL NON [facility] CREATININE, URINE NON [facility] MICROALBUMIN/CR EAT RATIO, UR NON [facility] MICROALBUMIN, URINE 8.0 mg/dL NON [facility] CREATININE, URINE 83.1 29.0 - 226.0 mg/dL NON [facility] MICROALBUMIN/CR EAT RATIO, UR 9.6 mg/g Creatinine NON [facility] Urine specimen (specimen) URINE SPECIMEN OBTAINED BY CLEAN CATCH PROCEDURE / Unknown 08/18/2015 Yuliya Ibarra MD URINE ORDERABLES NON [facility] * (ABNORMAL) HEMOGLOBIN A1C (08/18/2015) ABSTRACTED HGB A1C NON [facility] HEMOGLOBIN A1C 7.8(A) 4.7 - 6.4 % NON [facility] HEMOGLOBIN A1C NON [facility] GLUCOSE, MEAN BLOOD NON [facility] Blood specimen (specimen) 08/18/2015 Yuliya Ibarra MD CHEMISTRY ORDERABLES NON [facility] documented in this encounter Visit Diagnoses Not on filedocumented in this encounter Care Teams Assault Amphibious Vehicle Crewman Relationship Specialty Start Date End Date Julian Payne MD PCP - General Internal Medicine 06/23/15 06/20/16 documented as of this encounter
--- OUTSIDE RECORDS SUMMARY | 2024-05-26 13:17 | XMS_ITS | Encounter Summary ---
Author Organization [facility] Address [address] [place] [address] Care Team Providers Care Puff Iron Operator Name Role Phone Grupo Garcia MD Primary Care Provider Unavailab le Reason for Visit * Reason Onset Date Comments Results 11/15/2014 Encounter Details Date Type Department Care Team (Late st Contact Info) Description 11/15/2014 Patient Outreach [facility]] Endocrinology [address] [place] [address] Yuliya Ibarra MD [address] [place] [address] Results Social History Tobacco Use [...] Telephone Encounter - Helena Chan RMA - 11/15/2014 12:33 PM CDT Pt called office back informed of results pt voiced understanding. Labs pend for dr pablo [facility] faxedto pcp for review * Telephone Encounter - Kati Quintero - 11/15/2014 8:51 AM CDT Notes Recorded by Yuliya Ibarra MD on 11/14/2014 at 6:03 PM HgA1C is too high at this time - 8.3% Unfortunately, she will need insulin if her sugars do not decrease. Calcium is higher this time, needs to stay well hydrated. Potassium is on a low side as well - could be secondary to her water pill. Try to eat more foods rich in potassium - pemberton beans, avocados, nuts etc. Recheck BMP in 4 weeks. Please send her labs to her PCP as well. documented in this encounter Plan of Treatment Upcoming Encounters Date Type Department Care Team (Late st Contact Info) Description 07/12/2024 2:30 PM VICE PRESIDENT INVESTOR RELATIONS Office Visit [facility]3] Oncology and Hematology - [place] [address] [place] [address] [facility] [address] [place] [address] Ovidio Nolen MD [address] [place] [address] documented as of this encounter Results * (ABNORMAL) BASIC METABOLIC PANEL (12/07/2014 10:40 AM CDT) SODIUM 136 136 - 145 mmol/L 12/07/2014 12:20 PM CDT [facility] - . [facility] POTASSIUM 3.2(L) 3.5 - 5.0 mmol/L 12/07/2014 12:20 PM CDT [facility] - [facility] CHLORIDE 99 98 - 107 mmol/L 12/07/2014 12:20 PM CDT [facility] - [facility] CO2 26 22 - 29 mmol/L 12/07/2014 12:20 PM CDT [facility] - [facility] CALCIUM 10.5(H) 8.6 - 10.2 mg/dL 12/07/2014 12:20 PM CDT [facility] - [facility] BUN 20 8 - 23 mg/dL 12/07/2014 12:20 PM CDT [facility] - [facility] CREATININE 0.82 0.51 - 0.95 mg/dL 12/07/2014 12:20 PM [facility]ORY [facility] Comment: The GFR result is not clinically significant on patients <18 or >70 years of age. GLUCOSE 188(H) 79 - 99 mg/dL 12/07/2014 12:20 PM [facility] GFR >60 mL/min/1.7 3 sq meter 12/07/2014 12:20 PM [facility] Comment: eGFR has not [...] result. GFR, >60 mL/min/1.7 3 sq meter 12/07/2014 12:20 PM [facility] LABORATORY [facility] ANION GAP 11 8 - 16 mmol/L 12/07/2014 12:20 PM [facility]ORY [facility] Blood Venipuncture - L ab Collect / Unknown 12/07/2014 10:40 AM CDT 12/07/2014 11:32 AM CDT Yuliya Ibarra MD CHEMISTRY ORDERABLES [facility] flatev [facility]# [id number] [address] [facility] [place] [id number] documented in this encounter Visit Diagnoses Diagnosis Diabetes mellitus type II, uncontrolled- Primary Type II or unspecified type diabetes mellitus without mention of complication, uncontrolled documented in this encounter Care Teams Puff Iron Operator Relationship Specialty Start Date End Date Grupo Garcia MD PCP - General Internal Medicine 08/14/10 06/22/15 documented as of this encounter
--- OUTSIDE RECORDS SUMMARY | 2024-05-26 13:17 | XMS_ITS | Encounter Summary ---
Author Organization [facility] Address [address] [place] [address] Care Team Providers Care Bottling Room Worker Name Role Phone Grupo Garcia MD Primary Care Provider Unavailab le Reason for Visit * Reason Onset Date Comments Medication Refill 12/19/2014 Encounter Details Date Type Department Care Team (Late st Contact Info) Description 12/19/2014 Refill [facility] Endocrinology [address] [place] [address] Yuliya Ibarra MD [address] [place] [address] Diabetes mellitus type II, uncontrolled [...] Telephone Encounter - Helena Chan RMA - 12/19/2014 10:17 AM CDT JOSE G 11/14/14 NOV 02/24/15 documented in this encounter Plan of Treatment Upcoming Encounters Date Type Department Care Team (Late st Contact Info) Description 07/12/2024 2:30 PM TEAM OTR TRUCK DRIVER Office Visit [facility] Oncology and Hematology - [place] [address] [facility] [address] [place] [address] Oviido Nolen MD [address] [place] [address] documented as of this encounter Visit Diagnoses Diagnosis Diabetes mellitus type II, uncontrolled- Primary Type II or unspecified type diabetes mellitus without mention of complication, uncontrolled documented in this encounter Care Teams Bottling Room Worker Relationship Specialty Start Date End Date Grupo Garcia MD PCP - General Internal Medicine 08/14/10 2 documented as of this encounter
--- OUTSIDE RECORDS SUMMARY | 2024-05-26 13:17 | XMS_ITS | Encounter Summary ---
Author Organization [facility] Address [address] [place] [address] Care Team Providers Care Can Striper Name Role Phone Grupo Garcia MD Primary Care Provider Unavailab le Reason for Visit * Outpatient Services (Routine) - Closed Specialty Diagnoses / Procedures Referred By Alejandrina vale Referred To Contact Laboratory Diagnoses N Procedures LAB Yuliya Ibarra MD [address] [place] [address] [facility] [place] [facility] [address], [place] [address] Referral ID Status Reason Start Date Expiration Date Visits Re quested Visits Authorized [id number] Closed 12/07/2014 01/07/2016 1 1 Encounter Details Date Type Department Care Team (Latest Contact Info) Description 12/07/2014 10:38 AM CDT - 12/07/2014 11:59 PM CDT Hospital Encounter [facility] Laboratory Services [facility] [place] [facility] [address], [place] [address] Yuliya Ibarra MD [address] [place] [address] Discharge Disposition: Home or Self [...] Indications: instructed to stop prior to surgery potassium chloride (KLOR-CON 10) 10 mEq Extended Release tabletIndications:takes two tabs in the am Take 4 Tabs (40 mEq) by mouth daily with breakfast. 360 Tab 1 12/08/2014 06/05/2015 glimepiride (AMARYL) 1 mg tablet TAKE 1 AND A HALF TABS WITH BREAKFAST TAKE 2 TABLET AT LUNCH AND TAKE 2 TABLET AT DINNER. 495 Tab 1 09/26/2014 02/24/2015 sitaGLIPtin (JANUVIA) 50 mg TabletIndications:Diabe anais mellitus type II, uncontrolled Take 1 Tab (50 mg) by mouth daily with breakfast. 90 Tab 1 08/08/2014 12/19/2014 blood sugar diagnostic (FREESTYLE LITE STRIPS) Strip Pt checks 2 times a day 200 Strip 3 03/03/2014 03/03/2015 valsartan (DIOVAN) 80 mg Oral tablet Take 80 mg by mouth daily. 06/21/2016 potassium chloride (KLOR-CON 10) 10 mEq Oral TbSRIndications:takes two tabs in the am Take 10 mEq by mouth daily with breakfast. Indications: takes two tabs in the am 08/22/2010 12/08/2014 documented as of this encounter Plan of Treatment Upcoming Encounters Date Type Department Care Team (Late st Contact Info) Description 07/12/2024 2:30 PM BUZZLE BUFFER Office Visit [facility] Oncology and Hematology - [place] [address] [facility] [address] [place] [address] Ovidio Nolen MD [address] [facility] [address] [place] [address] documented as of this encounter Visit Diagnoses Not on filedocumented in this encounter Care Teams Can Striper Relationship Specialty Start Date End Date Grupo Garcia MD PCP - General Internal Medicine 08/14/10 06/22/15 documented as of this encounter
--- OUTSIDE RECORDS SUMMARY | 2024-05-26 13:17 | XMS_ITS | Encounter Summary ---
Author Organization [facility] Address [address] [place] [address] Care Team Providers Care Scheduling Administrator Name Role Phone Grupo Garcia MD Primary Care Provider Unavailab le Reason for Referral * Outpatient Services (Routine) - Closed Specialty Diagnoses / Procedures Referred By Alejandrina vale Referred To Contact Ultrasound Diagnoses Multiple thyroid nodules Procedures US HEAD NECK TISSUES Yuliya Ibarra MD [address] [place] [address] Referral ID Status Reason Start Date Expiration Date V isits Requested Visits Authorized [id number] Closed [facility] CTS 02/24/2015 03/26/2016 1 1 Reason for Visit * Reason Comments Diabetes Thyroid Problem Encounter Details Date Type Department Care Team (Late st Contact Info) Description 02/24/2015 11:15 AM CDT Office Visit [facility] Endocrinology [address] [place] [address] Yuliya Ibarra MD [address] [place] [address] Diabetes mellitus type II, uncontrolled (Primary Dx); Hypercalcemia; Multiple thyroid nodules; Hypokalemia; Hyperparathyroidism Social History Tobacco Use Types Packs/Day Years [...] Sign Reading Time Taken Comments Blood Pressure 110/68 02/24/2015 10:58 AM CDT Pulse 82 02/24/2015 10:58 AM CDT Temperature - - Respiratory Rate - - Oxygen Saturation - - Inhaled Oxygen Concentration - - Weight 91.2 kg (201 lb) 02/24/2015 10:58 AM CDT Height 165.1 cm (5' 5 ) 02/24/2015 10:58 AM CDT Body Mass Index 33.45 02/24/2015 10:58 AM CDT documented in this encounter Progress Notes * Yuliya Ibarra MD - 02/24/2015 11:07 AM CDT [facility] Endocrinology Yuliya Ibarra M.D. PCP: Dr. Julian Payne Machine Hoop Maker Helper: Dr. Alexandre Reese Neurologist: Dr. Nelson Ross Shot Peening Operator: Dr. Krishan Moran Vascular Surgeon: Dr. Elle Landaverde Educational Assistant Teacher: Dr. Laz Valencia Lead Cargoman: Dr. Phuong Callejas Reason for visit: DM follow-up. Subjective: Perla Leon is a 74 y.o. female with multiple medical problems, who presents to clinic for DM, thyroid nodules, hypercalcemia follow-up. Patient was diagnosed with multiple thyroid nodules via ultrasound. Her thyroid ultrasound was in October/2013 revealing small thyroid nodules. Patient denies changes in her neck size, dysphagia, voice changes, exposure to radiation treatments. DM regimen: currently on Glimepiride 1.5 mg in am, 2 mg with lunch and 2.5 mg with dinner, Januvia 100 mg daily, Levemir 7 units qhs. Could not tolerate Metformin secondary to diarrhea. Checks her blood sugars 2 times daily, reviewed patient's numbers. Sugars are improving, but stillhigher than goal. Her last HgA1C was 7.8%. Has seen a wellness program manager at [facility]. Glucometer: has one. Last eye exam: 3 months ago - has glaucoma. No hypoglycemia. Goes to a manager bench. 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 Her DEXA scan revealed osteopenia and she was found to have normal urine calcium level. Patient is taking Triamterene/ HCTZ for her legswelling. She denies having problems with high calcium in the past, denies nephrolithiasis, admits to memory issues. Her last calcium was elevated and patient was advised to stay well hydrated. She was found to be hypokalemic, started on potassium supplements, takes KCL 40 mEq daily and her last potassium level was normal, due for repeat blood work soon. Review of Systems: Endo/Gen: Her weight has been decreasing steadily. She: denies polyuria/polydipsia/nocturia, denies blurred vision. Her [...] Outpatient Prescriptions Medication Sig Dispense Refill ??? Insulin [place], Disposable, (HAYDEN PEN NEEDLE) 32 x 5/32 Needle 1 Each by [facility]Non-Drug; Combo Route) route see administration instructions. 100 Each 1 ??? insulin detemir (LEVEMIR FLEXTOUCH) 100 unit/mL Insulin Pen 5 units in am. 15 mL 0 ??? sitaGLIPtin (JANUVIA) 100 mg Tablet Take 1 Tab (100 mg) by mouth daily with breakfast. 90 Tab 0 ??? potassium chloride (KLOR-CON 10) 10 mEq Extended Release tablet Take 4 Tabs (40 mEq) by mouth daily with breakfast. 360 Tab 1 ??? glimepiride (AMARYL) 1 mg tablet TAKE 1 AND A HALF TABS WITH BREAKFAST TAKE 2 TABLET AT LUNCH AND TAKE 2 TABLET AT DINNER. 495 Tab 1 ??? blood sugar diagnostic (FREESTYLE LITE STRIPS) Strip Pt checks 2 times a day 200 Strip 3 ??? bimatoprost (LUMIGAN) 0.01 % solution 1 Drop daily at bedtime. ??? HYPROMELLOSE (SYSTANE GEL OP) by Ophthalmic route. PRN ??? lancets (FREESTYLE LANCETS) 28 gauge 100 Each by [facility].(Non-Drug; Combo Route) route daily. Dx [...] facility-administered medications for this visit. Social History: History Social History ??? Marital Status: Spouse [...] after stroke-none since ??? CVD (cerebrovascular disease) 0264-5301 TIA x2 ??? Duodenal ulcer 1978 ??? Shingles [id number] x3 ??? Glaucoma ??? Heart murmur ??? [...] (pediatric) to bring cpap day of surgery Past Surgical History Procedure Laterality Date ??? Hx cholecystectomy 1998 ??? Hx hysterectomy 1986 ??? Hx surgical other 1975 ulcer removed from vocal cord ??? Hx hernia repair 2009-[facility] emergency department ??? Hx knee arthroscopy [id number] right knee ??? Hx heart catheterization 2002 dr. Valencia ??? Hx surgical other 1985 surgery for broken nose ??? Pr repr vaginal prolapse,sacrosp lig 09/10/2010 SACROSPINOUS LIGAMENT FIXATION performed by FRANKLYN PACK at [facility] ??? Pr anter colporrhaphy,blad/vagina 09/10/2010 CYSTOCELE REPAIR performed by FRANKLYN PACK at [facility] ??? Hx surgical other 09/10/2010 ANTERIOR POSTERIOR REPAIR performed by FRANKLYN PACK at [facility] OR [facility] ??? Pr repair of perineum,non obstetrical 09/10/2010 PERINEOPLASTY performed by FRANKLYN PACK at [facility] ??? Pr post colporrhaphy,rectum/vagina 09/10/2010 RECTOCELE REPAIR performed by FRANKLYN PACK at [facility] ??? Pr repair enterocele,vag apprch 09/10/2010 ENTEROCELE REPAIR VAGINAL APPROACH performed by FRANKLYN PACK at [facility] OR [facility] Physical Findings: No results found for this visit on 02/24/15. Wt Readings from Last 3 Encounters: 02/24/15 201 lb (91.173 kg) 11/14/14 200 lb (90.719 kg) 08/08/14 201 lb (91.173 kg) BP 110/68 mmHg Pulse 82 Ht 5' 5 (1.651 m) Wt 201 lb (91.173 kg) BMI 33.45 kg/m2 Normal blood pressure Physical Exam: General [...] affect appropriate. Lab: Component Latest Ref Rng 01/06/2015 12:18 PM [...] EST. AVG GLUCOSE, A1C 192 177 Reviewed [facility] lab result done on [...] clinically significant. No perithyroid adenopathy is demonstrated. IMPRESSION IMPRESSION: 1. Small cystic nodules bilaterally. 2. No evidence for significant thyroid mass at this time. Assessment/Plan: 1. Type II Diabetes Mellitus uncontrolled: discussed the risk factors associated with diabetes. have encouraged diet and exercise as tolerated with her. Started bedtime Levemir since last visit, increase her dose from 7 to 9 units. She has seen Kelly, our wellness program manager, for diet discussion. Recheck HgA1C, BMP - will be due after March 09. Her HgA1C target is less than 7.5%. Patient was asked to monitor blood sugars and write down how much diabetic meds taken/accucheck time/special circumstances Diabetes plan reviewed with patient. 2. Hypercalcemia - Most likely primary hyperparathyroidism. Discussed hypercalcemia management and most likely etiology, needs to stay well hydrated. Discussed surgery indications vs conservative management. Patient is taking HCTZ, which can contribute to her hypercalcemia, will stop and adjust her diuretics if calcium level increases significantly. 3. Hypokalemia - takes HCTZ, KCL 40 mEq daily, will recheck BMP. 3. Thyroid nodules - stable. Last ultrasound was done in October/2013. Subclinical hypothyroidism. Will recheck her TSH w/ next set of labs and thyroid ultrasound. Patient is to call if experiences increase in her neck size/dysphagia/dyspnea/voice changes/tremors/palpitations or other problems arise. Follow-up in 3 months or as needed. >15 min of this 25 min visit was discussion/counseling. I would like to thank you for allowing me to participate in this patient's care, if you have any questions regarding my recommendations please do not hesitate to contact me at any time. Sincerely, Yuliya Ibarra MD * Kati Quintero - 02/24/2015 10:58 AM CDT Pt here dm thyroid f/u Needs 90 day januvia or glimepiride to [facility] documented in this encounter Plan of Treatment Upcoming Encounters Date Type Department Care Team (Late st Contact Info) Description 07/12/2024 2:30 PM TELECOMMUNICATIONS LINESWORKER Office Visit [facility] Oncology and Hematology - [place] [address] [place] [address] Ovidio Nolen MD [address] [facility] [address] [address] [place] [address] Scheduled Orders Name Type Priority Associated Diagnoses Orde r Schedule TSH Lab Routine Multiple thyroid nodules Ordered: 02/24/2015 BASIC METABOLIC PANEL Lab Routine Diabetes mellitus type II, uncontrolled Ordered: 02/24/2015 PTH INTACT Lab Routine Hypercalcemia Ordered: 02/24/2015 HEMOGLOBIN A1C Lab Routine Diabetes mellitus type II, uncontrolled Ordered: 02/24/2015 documented as of this encounter Results * US HEAD NECK TISSUES (03/06/2015 1:02 PM CDT) Anatomical Region Laterality Modality Head Ultrasound 03/06/2015 12:4 1 PM CDT Impressions 03/06/2015 2:21 PM CDT IMPRESSION: 1. Slight increase in size of a tiny 0.6 cm cystic nodule in the left thyroid lobe. 2. The previously noted right thyroid lobe nodule is stable. Narrative 03/06/2015 2:21 PM CDT ULTRASOUND NECK TISSUES HISTORY: Multiple thyroid nodules COMPARISON: 11/03/2013 FINDINGS: The right thyroid lobe measures 4.7 x 1.9 x 1.6 cm. The left thyroid lobe measures 4.4 x 1.6 x 1.7 cm. The isthmus measures 0.2 cm in AP dimension. Redemonstrated is a cystic nodule in the mid to lower pole of the right thyroid lobe which contains a thick septation versus solid component. This is not significantly changed measuring 0.8 x 0.6 x 0.7 cm. No internal vascularity or calcifications are identified. Again noted superficial to this within the midpole of the right thyroid lobe is a coarse calcification measuring up to 0.4 cm. Within the mid to lower pole of the left thyroid lobe a cystic nodule is again seen measuring up to 0.6 cm. This appears slightly increased in size since 2013. Procedure Note Yue Sosa MD - 03/06/2015 ULTRASOUND NECK TISSUES HISTORY: Multiple thyroid nodules COMPARISON: 11/03/2013 FINDINGS: The right thyroid lobe measures 4.7 x 1.9 x 1.6 cm. The left thyroid lobe measures 4.4 x 1.6 x 1.7 cm. The isthmus measures 0.2 cm in AP dimension. Redemonstrated is a cystic nodule in the mid to lower pole of the right thyroid lobe which contains a thick septation versus solid component. This is not significantly changed measuring 0.8 x 0.6 x 0.7 cm. No internal vascularity or calcifications are identified. Again noted superficial to this within the midpole of the right thyroid lobe is a coarse calcification measuring up to 0.4 cm. Within the mid to lower pole of the left thyroid lobe a cystic nodule is again seen measuring up to 0.6 cm. This appears slightly increased in size since 2013. IMPRESSION IMPRESSION: 1. Slight increase in size of a tiny 0.6 cm cystic nodule in the left thyroid lobe. 2. The previously noted right thyroid lobe nodule is stable. Yuliya Ibarra MD ORDERABLES documented in this encounter Visit Diagnoses Diagnosis Diabetes mellitus type II, uncontrolled- Primary Type II or unspecified type diabetes mellitus without mention of complication, uncontrolled Hypercalcemia Multiple thyroid nodules Nontoxic multinodular goiter Hypokalemia Hypopotassemia Hyperparathyroidism Hyperparathyroidism, unspecified Multiple thyroid nodules Nontoxic multinodular goiter documented in this encounter Care Teams Scheduling Administrator Relationship Specialty Start Date End Date Grupo Garcia MD PCP - General Internal Medicine 08/14/10 06/22/15 documented as of this encounter
--- OUTSIDE RECORDS SUMMARY | 2024-05-26 13:17 | XMS_ITS | Encounter Summary ---
Author Organization [facility] Address [address] [place] [address] Care Team Providers Care Pulper Name Role Phone Grupo Garcia MD Primary Care Provider Unavailab le Reason for Visit * Reason Onset Date Comments Other 05/18/2015 bs log Encounter Details Date Type Department Care Team (Late st Contact Info) Description 05/18/2015 Patient Outreach [facility] Endocrinology [address] [place] [address] Yuliya Ibarra MD [address] [place] [address] Other (bs log) Social History Tobacco Use Types Packs/Day Years [...] * Telephone Encounter - Susan Garcia - 05/18/2015 8:33 AM CST Pt informed of no changes bs log ING COMPUTER PUBLISHER documented in this encounter Plan of Treatment Upcoming Encounters Date Type Department Care Team (Late st Contact Info) Description 07/12/2024 2:30 PM EDITING COMPUTER PUBLISHER Office Visit [facility] Oncology and Hematology - [place] [address] [place] [address] Ovidio Nolen MD [address] [place] [address] documented as of this encounter Visit Diagnoses Not on filedocumented in this encounter Care Teams Pulper Relationship Specialty Start Date End Date Grupo Garcia MD PCP - General Internal Medicine 08/14/10 06/22/15 documented as of this encounter
--- OUTSIDE RECORDS SUMMARY | 2024-05-26 13:17 | XMS_ITS | Encounter Summary ---
Author Organization [facility] Address [address] [place] [address] Care Team Providers Care Gis Scientist Name Role Phone Grupo Garcia MD Primary Care Provider Unavailab le Reason for Visit * Reason Comments Medication Refill Encounter Details Date Type Department Care Team (Late st Contact Info) Description 04/16/2014 Refill [facility] Endocrinology [address] [place] [address] Yuliya Ibarra MD [address] [place] [address] Social History Tobacco Use Types [...] * Telephone Encounter - Bekah Wang - 04/18/2014 4:21 PM CST Duplicate request ETRICAL ANESTHESIOLOGIST documented in this encounter Plan of Treatment Upcoming Encounters Date Type Department Care Team (Late Contact Info) Description 07/12/2024 2:30 PM OBSTETRICAL ANESTHESIOLOGIST Office Visit [facility] Oncology and Hematology - [place] [address] [place] [address] Ovidio Nolen MD [address] [facility] [address] [place] [address] documented as of this encounter Visit Diagnoses Not on filedocumented in this encounter Care Teams Gis Scientist Relationship Specialty Start Date End Date Grupo Garcia MD PCP - General Internal Medicine 08/14/10 2 documented as of this encounter
--- OUTSIDE RECORDS SUMMARY | 2024-05-26 13:17 | XMS_ITS | Encounter Summary ---
Author Organization [facility] Address [address] [place] [address] Care Team Providers Care Drug Safety Associate Name Role Phone Grupo Garcia MD Primary Care Provider Unavailab le Reason for Referral * Outpatient Services (Routine) - Closed Specialty Diagnoses / Procedures Referred By Alejandrina vale Referred To Contact Ultrasound Diagnoses Multiple thyroid nodules Procedures US HEAD NECK TISSUES Yuliya Ibarra MD [address] [place] [address] Referral ID Status Reason Start Date Expiration Date V isits Requested Visits Authorized [id number] Closed ST[facility] CTS 02/24/2015 03/26/2016 1 1 Reason for Visit * Outpatient Services (Routine) - Closed Specialty Diagnoses / Procedures Referred By Alejandrina vale Referred To Contact Ultrasound Diagnoses Multiple thyroid nodules Procedures US HEAD NECK TISSUES Yuliya Ibarra MD [address], [place] [address] Referral ID Status Reason Start Date Expiration Date V isits Requested Visits Authorized [id number] Closed [facility] CTS 02/24/2015 03/26/2016 1 1 Encounter Details Date Type Department Care Team (Latest Contact Info) Description 03/06/2015 12:37 PM CDT - 03/06/2015 11:59 PM CDT Hospital Encounter [facility] [address] [place] [address] Yuliya Ibarra MD [address] [place] [address] Discharge Disposition: Home or Self [...] mcg by mouth daily. multivitamin (DAILY-BRYON) Oral tabletIndications:in structed to stop prior to surgery Take 1 Tab by mouth daily. Indications: instructed to stop prior to surgery blood sugar diagnostic (FREESTYLE LITE STRIPS) Strip Pt checks 2 times a day dx E11.65. 200 Strip 1 03/03/2015 09/07/2015 sitaGLIPtin (JANUVIA) 100 mg TabletIndications:Di abetes mellitus type II, uncontrolled Take 1 Tablet (100 mg) by mouth daily with breakfast. 90 Tablet 1 02/27/2015 09/16/2015 glimepiride (AMARYL) 1 mg tabletIndications:Di abetes mellitus type II, uncontrolled TAKE 1 AND A HALF TABS WITH BREAKFAST TAKE 2 TABLET AT LUNCH AND TAKE 2 TABLET AT DINNER. 495 Tablet 1 02/27/2015 10/06/2015 Insulin [place], Disposable, (HAYDEN PEN NEEDLE) 32 x 5/32 Needle 1 Each by Misc.(Non-Drug; Combo Route) route see administration instructions. 100 Each 1 02/01/2015 08/17/2015 insulin detemir (LEVEMIR FLEXTOUCH) 100 unit/mL Insulin Pen 5 units in am. 15 mL 0 01/26/2015 05/31/2015 potassium chloride (KLOR-CON 10) 10 mEq Extended Release tabletIndications:ta kevanessa two tabs in the am Take 4 Tabs (40 mEq) by mouth daily with breakfast. 360 Tab 1 12/08/2014 06/05/2015 valsartan (DIOVAN) 80 mg Oral tablet Take 80 mg by mouth daily. 06/21/2016 documented as of this encounter Plan of Treatment Upcoming Encounters Date Type Department Care Team (Late st Contact Info) Description 07/12/2024 2:30 PM COIN MACHINE COLLECTOR SUPERVISOR Office Visit [facility] Oncology and Hematology - [place] [address] [facility] [place] [address] Ovidio Nolen MD [address] [place] [address] documented as of this encounter Procedures Procedure Name Priority Date/Time Associated Diagnosis Comments US HEAD NECK TISSUES Routine 03/06/2015 1:02 PM CDT Multiple thyroid nodules documented in [...] lobe nodule is stable. Yuliya Ibarra MD US ORDERABLES documented in this encounter Visit Diagnoses Diagnosis Multiple thyroid nodules Nontoxic multinodular goiter documented in this encounter Care Teams Drug Safety Associate Relationship Specialty Start Date End Date Grupo Garcia MD PCP - General Internal Medicine 08/14/10 06/22/15 documented as of this encounter
--- OUTSIDE RECORDS SUMMARY | 2024-05-26 13:17 | XMS_ITS | Encounter Summary ---
Author Organization [facility] Address [address] [place] [address] Care Team Providers Care Promos Executive Producer Name Role Phone Grupo Garcia MD Primary Care Provider Unavailab le Encounter Details Date Type Department Care Team (Late Contact Info) Description 03/09/2014 Abstract [facility] Endocrinology [address] [place] [address] Yuliya Ibarra MD [address] [place] [address] Social History Tobacco Use Types [...] (Late Contact Info) Description 07/12/2024 2:30 PM THEATER SET PRODUCTION DESIGNER Office Visit [facility] Oncology and Hematology - [place] [address] [facility] [address] [place] [address] Ovidio Nolen MD [address] [place] [address] documented as of this encounter Visit Diagnoses Not on filedocumented in this encounter Care Teams Promos Executive Producer Relationship Specialty Start Date End Date Grupo Garcia MD PCP - General Internal Medicine 08/14/10 2 documented as of this encounter
--- OUTSIDE RECORDS SUMMARY | 2024-05-26 13:17 | XMS_ITS | Encounter Summary ---
Author Organization [facility] Address [address] [place] [address] Care Team Providers Care Ibm Mainframe Systems Programmer Name Role Phone Grupo Garcia MD Primary Care Provider Unavailab le Reason for Visit * Reason Onset Date Comments Medication Refill 02/27/2015 Encounter Details Date Type Department Care Team (Late st Contact Info) Description 02/27/2015 Refill [facility] Endocrinology [address] [place] [address] Yuliya Ibarra MD [address] [place] [address] Diabetes mellitus type II, uncontrolled [...] * Telephone Encounter - Bekah Wang - 02/27/2015 11:29 AM CDT Pt called , says rx's went to wrong pharm , resending documented in this encounter Plan of Treatment Upcoming Encounters Date Type Department Care Team (Late st Contact Info) Description 07/12/2024 2:30 PM TRAINING AND DOCUMENTATION SPECIALIST Office Visit [facility] Oncology and Hematology - [place] [address] [facility] [address] [place] [address] Ovidio Nolen MD [address] [facility] [address] [place] [address] documented as of this encounter Visit Diagnoses Diagnosis Diabetes mellitus type II, uncontrolled- Primary Type II or unspecified type diabetes mellitus without mention of complication, uncontrolled documented in this encounter Care Teams Ibm Mainframe Systems Programmer Relationship Specialty Start Date End Date Grupo Garcia MD PCP - General Internal Medicine 08/14/10 2 documented as of this encounter
--- OUTSIDE RECORDS SUMMARY | 2024-05-26 13:17 | XMS_ITS | Encounter Summary ---
Author Organization [facility] Address [address] [place] [address] Care Team Providers Care Mixer Operator Tablets Name Role Phone Julian Payne MD Primary Care Provider [phone] Encounter Details Date Type Department Care Team (Late st Contact Info) Description 09/19/2015 Abstract [facility] Endocrinology [address] [place] [address] Yuliya Ibarra MD [address] [place] [address] Social History Tobacco Use Types [...] st Contact Info) Description 07/12/2024 2:30 PM INSIDE PHONE SALES Office Visit [facility] Oncology and Hematology - [place] [address] [place] [address] Ovidio Nolen MD [address] [facility] [address] [place] [address] documented as of this encounter Visit Diagnoses Not on filedocumented in this encounter Care Teams Mixer Operator Tablets Relationship Specialty Start Date End Date Julian Pyane MD PCP - General Internal Medicine 06/23/15 2 documented as of this encounter
--- OUTSIDE RECORDS SUMMARY | 2024-05-26 13:17 | XMS_ITS | Encounter Summary ---
Author Organization [facility] Address [address] [place] [address] Care Team Providers Care Set Up Mechanic Name Role Phone Grupo Garcia MD Primary Care Provider Unavailab le Encounter Details Date Type Department Care Team (Late st Contact Info) Description 07/08/2014 Orders Only [facility] Endocrinology [address] [place] [address] Kelly Mchugh RN Social History Tobacco Use Types Packs/Day Years Used Date Smoking Tobacco: Never Alcohol Use Standard Drinks/Week Comments No 0 (1 standard drink = 0.6 oz pur e alcohol) Sex and Gender Information Value Date Recorded Sex Assigned at Not on file Gender Identity Not on file Sexual Orientation Not on file documented as of this encounter Progress Notes * Kelly Mchugh RN - 07/08/2014 9:01 AM CST Pt informed on 07/08 of medication change per note on scan . See scan for changes. Medication list up dated NESS PROCESS REPRESENTATIVE documented in this encounter Plan of Treatment Upcoming Encounters Date Type Department Care Team (Late st Contact Info) Description 07/12/2024 2:30 PM BUSINESS PROCESS REPRESENTATIVE Office Visit [facility] Oncology and Hematology - [place] [address] [place] [address] Ovidio Nolen MD [address] [facility] [address] [place] [address] documented as of this encounter Visit Diagnoses Not on filedocumented in this encounter Care Teams Set Up Mechanic Relationship Specialty Start Date End Date Grupo Garcia MD PCP - General Internal Medicine 08/14/10 06/22/15 documented as of this encounter
--- OUTSIDE RECORDS SUMMARY | 2024-05-26 13:17 | XMS_ITS | Encounter Summary ---
Author Organization [facility] Address [address] [place] [address] Care Team Providers Care Computational Scientist Name Role Phone Grupo Garcia MD Primary Care Provider Unavailab le Reason for Visit * Reason Onset Date Comments Results 01/06/2015 Encounter Details Date Type Department Care Team (Late st Contact Info) Description 01/06/2015 Patient Outreach [facility] Endocrinology [address] [place] [address] Yuliya Ibarra MD [address] [place] [address] Results Social History Tobacco Use [...] * Telephone Encounter - Kati Quintero - 01/06/2015 3:42 PM CDT Called pt and spoke to and gave results and instructions. Future lab orders will be mailed to pt's home. * Telephone Encounter - Kati Quintero - 01/06/2015 3:41 PM CDT Notes Recorded by Yuliya Ibarra MD on 01/06/2015 at 2:09 PM Her potassium is now normal. Calcium is higher. Needs to stay well hydrated. I will need to recheck her BMP and HgA1C before her visit with me. documented in this encounter Plan of Treatment Upcoming Encounters Date Type Department Care Team (Late st Contact Info) Description 07/12/2024 2:30 PM LINER INSTALLER Office Visit [facility] Oncology and Hematology - [place] [address] [facility] [address] [place] [address] Ovidio Nolen MD [address] [facility] [address] [place] [address] documented as of this encounter Visit Diagnoses Diagnosis Diabetes mellitus type II, uncontrolled- Primary Type II or unspecified type diabetes mellitus without mention of complication, uncontrolled Hypercalcemia documented in this encounter Care Teams Computational Scientist Relationship Specialty Start Date End Date Grupo Garcia MD PCP - General Internal Medicine 08/14/10 06/22/15 documented as of this encounter
--- OUTSIDE RECORDS SUMMARY | 2024-05-26 13:17 | XMS_ITS | Encounter Summary ---
Author Organization [facility] Address [address] [place] [address] Care Team Providers Care Steam Pipe Fitter Name Role Phone Grupo Garcia MD Primary Care Provider Unavailab le Reason for Visit * Reason Onset Date Comments Other 06/22/2015 bs logs Encounter Details Date Type Department Care Team (Late st Contact Info) Description 06/22/2015 Patient Outreach [facility] Endocrinology [address] [place] [address] Yuliya Ibarra MD [address] [place] [address] Other (bs logs) Social History Tobacco Use Types Packs/Day Years [...] * Telephone Encounter - Susan Garcia - 06/22/2015 11:49 AM CST Left pt message on vm of no changes in blood sugar RGROUND PRODUCTION FOREPERSON documented in this encounter Plan of Treatment Upcoming Encounters Date Type Department Care Team (Late st Contact Info) Description 07/12/2024 2:30 PM UNDERGROUND PRODUCTION FOREPERSON Office Visit [facility] Oncology and Hematology - [place] [address] [place] [address] Ovidio Nolen MD [address] [facility] [address] [place] [address] documented as of this encounter Visit Diagnoses Not on filedocumented in this encounter Care Teams Steam Pipe Fitter Relationship Specialty Start Date End Date Grupo aGrcia MD PCP - General Internal Medicine 08/14/10 2 documented as of this encounter
--- OUTSIDE RECORDS SUMMARY | 2024-05-26 13:17 | XMS_ITS | Encounter Summary ---
Author Organization [facility] Address [address] [place] [address] Care Team Providers Care Bottom Crane Operator Name Role Phone Jarrell Garrison MD Primary Care Provider [phone] Reason for Visit * Reason Comments Medication Refill Encounter Details Date Type Department Care Team (Late st Contact Info) Description 09/07/2015 Refill [facility] Endocrinology [address] [place] [address] Yuliya Ibarra MD [address] [place] [address] Social History Tobacco Use Types [...] * Telephone Encounter - Kati Quintero - 09/08/2015 6:13 PM CDT Nov 09/22/15 [place] 06/23/15 documented in this encounter Plan of Treatment Upcoming Encounters Date Type Department Care Team (Late st Contact Info) Description 07/12/2024 2:30 PM SUPERVISOR GAS METER REPAIR Office Visit [facility] Oncology and Hematology - [place] [address] [facility] [address] [place] [address] Ovidio Nolen MD [address] [facility] [address] [place] [address] documented as of this encounter Visit Diagnoses Not on filedocumented in this encounter Care Teams Bottom Crane Operator Relationship Specialty Start Date End Date Jarrell Garrison MD PCP - General Geriatric Medicine 06/21/16 08/13/18 documented as of this encounter
--- OUTSIDE RECORDS SUMMARY | 2024-05-26 13:17 | XMS_ITS | Encounter Summary ---
Author Organization [facility] Address [address] [place] [address] Care Team Providers Care Pot Reliner Name Role Phone Grupo Garcia MD Primary Care Provider Unavailab le Reason for Visit * Reason Onset Date Comments Medication Refill 03/03/2015 Encounter Details Date Type Department Care Team (Late st Contact Info) Description 03/03/2015 Refill [facility] Endocrinology [address] [place] [address] Yuliya Ibarra MD [address] [place] [address] Social History Tobacco Use Types [...] * Telephone Encounter - Bekah Wang - 03/03/2015 1:40 PM CDT galo 02/24/15, nov 06/05/15 documented in this encounter Plan of Treatment Upcoming Encounters Date Type Department Care Team (Late st Contact Info) Description 07/12/2024 2:30 PM PARTITION ASSEMBLY MACHINE OPERATOR Office Visit [facility] Oncology and Hematology - [place] [address] [place] [address] Ovidio Nolen MD [address] [facility] [address] [place] [address] documented as of this encounter Visit Diagnoses Not on filedocumented in this encounter Care Teams Pot Reliner Relationship Specialty Start Date End Date Grupo Garcia MD PCP - General Internal Medicine 08/14/10 06/22/15 documented as of this encounter
--- OUTSIDE RECORDS SUMMARY | 2024-05-26 13:17 | XMS_ITS | Encounter Summary ---
Author Organization [facility] Address [address] [place] [address] Care Team Providers Care On Awake Counselor Name Role Phone Grupo Garcia MD Primary Care Provider Unavailab le Reason for Visit * Reason Onset Date Comments Results 03/08/2015 Encounter Details Date Type Department Care Team (Late st Contact Info) Description 03/08/2015 Patient Outreach [facility] Endocrinology [address] [place] [address] Yuliya Ibarra MD [address] [place] [address] Results Social History Tobacco Use [...] * Telephone Encounter - Kati Quintero - 03/08/2015 3:49 PM CDT Spoke to pt and informed of results and pt voiced understanding. * Telephone Encounter - Kati Quintero - 03/08/2015 3:49 PM CDT Notes Recorded by Yuliya Ibarra MD on 03/07/2015 at 1:43 PM Stable small right thyroid nodule. Left thyroid nodule is slightly bigger, but still too small to biopsy Will need to monitor. documented in this encounter Plan of Treatment Upcoming Encounters Date Type Department Care Team (Late st Contact Info) Description 07/12/2024 2:30 PM SINGLE NEEDLE TUFTING MACHINE OPERATOR Office Visit [facility] Oncology and Hematology - [place] [address] [facility] [address] [place] [address] Ovidio Nolen MD [address] [facility] [address] [place] [address] documented as of this encounter Visit Diagnoses Not on filedocumented in this encounter Care Teams On Awake Counselor Relationship Specialty Start Date End Date Grupo Garcia MD PCP - General Internal Medicine 08/14/10 06/22/15 documented as of this encounter
--- OUTSIDE RECORDS SUMMARY | 2024-05-26 13:17 | XMS_ITS | Encounter Summary ---
Author Organization [facility] Address [address] [place] [address] Care Team Providers Care Nurse Name Role Phone Grupo Garcia MD Primary Care Provider Unavailab le Reason for Visit * Reason Onset Date Comments Results 07/22/2014 bs log Encounter Details Date Type Department Care Team (Late st Contact Info) Description 07/22/2014 Telephone [facility] Endocrinology [address] [place] [address] Yuliya Ibarra MD [address] [place] [address] Results ( bs log) Social History Tobacco Use Types Packs/Day Years Used Date Smoking Tobacco: Never Alcohol Use Standard Drinks/Week Comments No 0 (1 standard drink = 0.6 oz pur e alcohol) Sex and Gender Information Value Date Recorded Sex Assigned at Not on file Gender Identity Not on file Sexual Orientation Not on file documented as of this encounter Miscellaneous Notes * Telephone Encounter - eHlena Chan RMA - 07/22/2014 8:49 AM MANAGER NICU Talked to pt understood results of bs log GER NICU documented in this encounter Plan of Treatment Upcoming Encounters Date Type Department Care Team (Late st Contact Info) Description 07/12/2024 2:30 PM MANAGER NICU Office Visit [facility] Oncology and Hematology - [place] [address] [place] [address] Ovidio Nolen MD [address] [facility] [address] [place] [address] documented as of this encounter Visit Diagnoses Not on filedocumented in this encounter Care Teams Nurse Relationship Specialty Start Date End Date Grupo Garcia MD PCP - General Internal Medicine 08/14/10 06/22/15 documented as of this encounter
--- OUTSIDE RECORDS SUMMARY | 2024-05-26 13:17 | XMS_ITS | Encounter Summary ---
Author Organization [facility] Address [address] [place] [address] Care Team Providers Care Information Technology Technician Name Role Phone Grupo Garcia MD Primary Care Provider Unavailab le Encounter Details Date Type Department Care Team (Late Contact Info) Description 09/29/2014 Abstract [facility] Endocrinology [address] [place] [address] Yuliya Ibarra MD [address] [place] [address] Social History Tobacco Use Types [...] (Late Contact Info) Description 07/12/2024 2:30 PM DISASTER RECOVERY CONSULTANT Office Visit [facility] Oncology and Hematology - [place] [address] [facility] [address] [place] [address] Ovidio Nolen MD [address] [facility] [address] [place] [address] documented as of this encounter Visit Diagnoses Not on filedocumented in this encounter Care Teams Information Technology Technician Relationship Specialty Start Date End Date Grupo Garcia MD PCP - General Internal Medicine 08/14/10 2 documented as of this encounter
--- OUTSIDE RECORDS SUMMARY | 2024-05-26 13:17 | XMS_ITS | Encounter Summary ---
Author Organization [facility] Address [address] [place] [address] Care Team Providers Care Nanotechnology Technician Name Role Phone Grupo Garcia MD Primary Care Provider Unavailab le Reason for Visit * Outpatient Services (Routine) - Closed Specialty Diagnoses / Procedures Referred By Alejandrina vale Referred To Contact Laboratory Diagnoses labs Procedures LAB Yuliya Ibarra MD [address] [place] [address] [facility] [place] [facility] [address], [place] [address] Referral ID Status Reason Start Date Expiration Date Visits Re quested Visits Authorized [id number] Closed 01/06/2015 02/06/2016 1 1 Encounter Details Date Type Department Care Team (Latest Contact Info) Description 01/06/2015 12:04 PM CDT - 01/06/2015 11:59 PM CDT Hospital Encounter [facility] Laboratory Services Medical [place] [facility] [address], [place] [address] Yuliya Ibarra MD [address] [place] [address] Discharge Disposition: Home or Self [...] Indications: instructed to stop prior to surgery insulin detemir (LEVEMIR FLEXTOUCH) 100 unit/mL Insulin Pen 5 units in am. 3 mL 0 12/29/2014 01/26/2015 sitaGLIPtin (JANUVIA) 100 mg TabletIndications:Diabe anais mellitus type II, uncontrolled Take 1 Tab (100 mg) by mouth daily with breakfast. 90 Tab 0 12/19/2014 02/24/2015 potassium chloride (KLOR-CON 10) 10 mEq Extended Release tabletIndications:takes two tabs in the am Take 4 Tabs (40 mEq) by mouth daily with breakfast. 360 Tab 1 12/08/2014 06/05/2015 glimepiride (AMARYL) 1 mg tablet TAKE 1 AND A HALF TABS WITH BREAKFAST TAKE 2 TABLET AT LUNCH AND TAKE 2 TABLET AT DINNER. 495 Tab 1 09/26/2014 02/24/2015 blood sugar diagnostic (FREESTYLE LITE STRIPS) Strip Pt checks 2 times a day 200 Strip 3 03/03/2014 03/03/2015 valsartan (DIOVAN) 80 mg Oral tablet Take 80 mg by mouth daily. 06/21/2016 documented as of this encounter Plan of Treatment Upcoming Encounters Date Type Department Care Team (Late st Contact Info) Description 07/12/2024 2:30 PM MERCHANT BANKER Office Visit [facility] Oncology and Hematology - [place] [address] [place] [address] Ovidio Nolen MD [address] [facility] [address] [place] [address] documented as of this encounter Procedures Procedure Name Priority Date/Time Associated Diagnosis Comments BASIC METABOLIC PANEL Routine 01/06/2015 12:18 PM CDT Low blood potassium documented in this encounter Results * (ABNORMAL) BASIC METABOLIC PANEL (01/06/2015 12:18 PM CDT) SODIUM 142 136 - 145 mmol/L 01/06/2015 1:51 PM CDT [facility] POTASSIUM 4.4 3.5 - 5.0 mmol/L 01/06/2015 1:51 PM CDT [facility] CHLORIDE 104 98 - 107 mmol/L 01/06/2015 1:51 PM CDT [facility] CO2 26 22 - 29 mmol/L 01/06/2015 1:51 PM CDT [facility] CALCIUM 11.2(H) 8.6 - 10.2 mg/dL 01/06/2015 1:51 PM CDT [facility] BUN 17 8 - 23 mg/dL 01/06/2015 1:51 PM CDT [facility] CREATININE 0.87 0.51 - 0.95 mg/dL 01/06/2015 1:51 PM CDT [facility] Comment: The GFR result is not clinically significant on patients <18 or >70 years of age. GLUCOSE 158(H) 79 - 99 mg/dL 01/06/2015 1:51 PM CDT [facility] GFR >60 mL/min/1.7 3 sq meter 01/06/2015 1:51 PM T [facility] Comment: eGFR has not been validated [...] result. GFR, >60 mL/min/1.7 3 sq meter 01/06/2015 1:51 PM CDT [facility] ANION GAP 12 8 - 16 mmol/L 01/06/2015 1:51 PM CDT [facility] Blood Venipuncture - L ab Collect / Unknown 01/06/2015 12:18 PM CDT 01/06/2015 12:55 PM CDT Yuliya Ibarra MD CHEMISTRY ORDERABLES [facility]# [id number] [address] [facility] [place] [id number] documented in this encounter Visit Diagnoses Diagnosis Low blood potassium Hypopotassemia documented in this encounter Care Teams Nanotechnology Technician Relationship Specialty Start Date End Date Grupo Garcia MD PCP - General Internal Medicine 08/14/10 06/22/15 documented as of this encounter
--- OUTSIDE RECORDS SUMMARY | 2024-05-26 13:17 | XMS_ITS | Encounter Summary ---
Author Organization [facility] Address [address] [place] [address] Care Team Providers Care Nuclear Technician Name Role Phone Grupo Garcia MD Primary Care Provider Unavailab le Reason for Visit * Reason Comments Hypothyroid Diabetes Encounter Details Date Type Department Care Team (Late st Contact Info) Description 05/02/2014 2:15 PM CORRECTIONAL CASE RECORDS SUPERVISOR Office Visit [facility] Endocrinology [address] [place] [address] Yuliya Ibarra MD [address] [place] [address] Diabetes mellitus type II, uncontrolled (Primary Dx); Multiple thyroid nodules; Hypercalcemia Social History Tobacco [...] Sign Reading Time Taken Comments Blood Pressure 108/60 05/02/2014 2:15 PM CORRECTIONAL CASE RECORDS SUPERVISOR Pulse 76 05/02/2014 2:15 PM CORRECTIONAL CASE RECORDS SUPERVISOR Temperature - - Respiratory Rate - - Oxygen Saturation - - Inhaled Oxygen Concentration - - Weight 91.6 kg (202 lb) 05/02/2014 2:15 PM CORRECTIONAL CASE RECORDS SUPERVISOR Height 165.1 cm (5' 5 ) 05/02/2014 2:15 PM CORRECTIONAL CASE RECORDS SUPERVISOR Body Mass Index 33.61 05/02/2014 2:15 PM CORRECTIONAL CASE RECORDS SUPERVISOR documented in this encounter Progress Notes * Yuliya Ibarra MD - 05/02/2014 2:23 PM CST [facility] Endocrinology Yuliya Ibarra M.D. PCP: Dr. Grupo Garcia Rework Operator: Dr. Alexandre Reese Neurologist: Dr. Nelson Ross Project Consultant: Dr. Krishan Moran Vascular Surgeon: Dr. Elle Landaverde Law Firm Consultant: Dr. Laz Valencia Neck Band Operator: Dr. Phuong Callejas Reason for visit: DM follow-up. Subjective: Perla Leon is a 73 y.o. female with multiple medical problems, who presents to clinic for thyroid nodule follow-up, as well as diabetes and hypercalcemia. Patient was diagnosed with multiple thyroid nodules via ultrasound. Her nodules were small enough to monitor. Her recent thyroid ultrasound was in October/2013 revealing small thyroid nodules. Patient denies changes in her neck size, dysphagia, voice changes, exposure to radiation treatments. Patient was diagnosed with DM II, currently on Glimepiride 1.5 mg in am, 1 mg with lunch and 1 mg with dinner. Could not tolerate Metformin secondary to diarrhea. Checks her blood sugars 2 times daily, has been experiencing higher blood sugars lately. Has seen a electronic equipment repairer at [facility]. Her last HgA1C was 7.6% Glucometer: has one. Last eye exam: 3 months ago - has glaucoma. No hypoglycemia. Goes to a cuff cutter. 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 Her DEXA scan revealed osteopenia and she was found to have normal urine calcium level. Patient is taking Triamterene/ HCTZ for her legswelling. She denies having problems with high calcium in the past, denies nephrolithiasis, admits to memory issues. Her last calcium level was 10.5 done on 04/19/14. Review of Systems: Endo/Gen: Her weight has [...] Outpatient Prescriptions Medication Sig Dispense Refill ??? glimepiride (AMARYL) 1 mg tablet Take 1 Tab by mouth see administration instructions. 1.5 tabs breakfast, 1 tab lunch, 1 tab dinner. Must keep appt for further refills 105 Tab 0 ??? blood sugar diagnostic (FREESTYLE LITE [...] Take 1 Tab by mouth daily. ??? potassium chloride (KLOR-CON 10) 10 mEq Oral TbSR Take 10 mEq by mouth daily with breakfast. Indications: takes two tabs in the am ??? amitriptyline (ELAVIL) 50 mg Oral tablet [...] ??? Drug Use: No ??? Sexual Activity: Comment: hyst Other Topics Concern ??? Not on file Social History Narrative ??? No narrative on file Family medical history: Family History Problem Relation Age of Onset ??? Breast Cancer Mother ??? Hypertension Brother ??? High Cholesterol Brother Medical History: Past Medical History Diagnosis Date ??? Pneumonia just recovering ??? Seizure disorder 2001 after stroke-none since ??? CVD (cerebrovascular disease) 7816-3140 TIA x2 ??? Duodenal ulcer 1977 ??? Shingles [id number] x3 ??? Glaucoma ??? Heart murmur ??? [...] History Procedure Laterality Date ??? Hx cholecystectomy 1997 ??? Hx hysterectomy 1985 ??? Hx surgical other 1975 ulcer removed from vocal cord ??? Hx hernia repair 2009-[facility] ??? Hx knee arthroscopy 1511-9063 right knee ??? Hx heart catheterization 2002 dr. Valencia ??? Hx surgical other 1985 surgery for broken nose ??? Pr repr vaginal prolapse,sacrosp lig 09/10/2010 SACROSPINOUS LIGAMENT FIXATION performed by FRANKLYN PACK at [facility] ??? Pr anter colporrhaphy,blad/vagina 09/10/2010 CYSTOCELE REPAIR performed by FRANKLYN PACK at [facility] ??? Hx surgical other 09/10/2010 ANTERIOR POSTERIOR REPAIR performed by FRANKLYN PAKC at [facility] ??? Pr repair of perineum,non obstetrical 09/10/2010 PERINEOPLASTY performed by FRANKLYN PACK at [facility] ??? Pr post colporrhaphy,rectum/vagina 09/10/2010 RECTOCELE REPAIR performed by FRANKLYN PACK at [facility] ??? Pr repair enterocele,vag apprch 09/10/2010 ENTEROCELE REPAIR VAGINAL APPROACH performed by FRANKLYN PACK at [facility] OR [facility] Physical Findings: No results found for this visit on 05/02/14. Wt Readings from Last 3 Encounters: 05/02/14 202 lb (91.627 kg) 11/17/13 195 lb (88.451 kg) 07/30/13 196 lb (88.905 kg) BP 108/60 Pulse 76 Ht 5' 5 (1.651 m) Wt 202 lb (91.627 kg) BMI 33.61 kg/m2 Physical Exam: General appearance: alert, well appearing, [...] were 2+ with a normal return phase. Lab: Reviewed [facility] lab result done on 04/19/14 CMP [...] Lab Results Component Value Date/Time SODIUM 142 11/17/2013 3:36 PM SODIUM 140 04/28/2013 3:24 PM SODIUM 142 08/22/2010 1:45 PM POTASSIUM 3.9 11/17/2013 3:36 PM POTASSIUM 3.9 04/28/2013 3:24 PM POTASSIUM 3.5 08/22/2010 1:45 PM CHLORIDE 106 11/17/2013 3:36 PM CHLORIDE 101 04/28/2013 3:24 PM CHLORIDE 106 08/22/2010 1:45 PM CO2 28 11/17/2013 3:36 PM CO2 27 04/28/2013 3:24 PM CO2 28 08/22/2010 1:45 PM BUN 21* 11/17/2013 3:36 PM BUN 20 04/28/2013 3:24 PM BUN 18 08/22/2010 1:45 PM GLUCOSE 139* 11/17/2013 3:36 PM GLUCOSE 231* 04/28/2013 3:24 PM GLUCOSE 136* 08/22/2010 1:45 PM Lab Results Component Value Date/Time CREATININE 0.86 11/17/2013 3:36 PM CREATININE 0.84 04/28/2013 3:24 PM CREATININE 0.76 08/22/2010 1:45 PM Lab Results Component Value Date/Time TSH 4.24* 11/17/2013 3:36 PM TSH 5.22* 04/28/2013 3:24 PM Lab Results Component Value Date/Time VITAMIN D, 25 OH, TOTAL 22 04/28/2013 3:24 PM 10/2013 thyroid ultrasound FINDINGS: Sagittal and [...] time. Assessment/Plan: 1. Type II Diabetes Mellitus controlled: discussed the risk factors associated with diabetes. have encouraged diet and exercise as tolerated with her. discussed current medications and have asked that she adjust her medications to include the following: change Glimepiride to 1.5 tabs in am, 1 during lunch and 1.5 during supper. Discussed Tradjenta w/ patient. Her HgA1C target is less than 7.5%. Recheck HgA1C before next visit. Patient was asked to monitor blood sugars and write down how much diabetic meds taken/accucheck time/special circumstances Diabetes plan reviewed with patient. 2. 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 Stable, will continue to monitor. Discussed most likely cause of hypercalcemia, which is primary hyperparathyroidism. Patient is taking HCTZ, which can contribute to her hypercalcemia, will stop and adjust her diuretics if calcium level increased significantly. 3. Thyroid nodules - stable. Last ultrasound was done in October/2013. Subclinical hypothyroidism. Patient is to call if experiences increase [...] at any time. Sincerely, Yuliya Ibarra MD ECTIONAL CASE RECORDS SUPERVISOR * Kati Quintero - 05/02/2014 2:15 PM CST Pt here thyroid/ dm ECTIONAL CASE RECORDS SUPERVISOR documented in this encounter Plan of Treatment Upcoming Encounters Date Type Department Care Team (Late st Contact Info) Description 07/12/2024 2:30 PM CORRECTIONAL CASE RECORDS SUPERVISOR Office Visit [facility] Oncology and Hematology - [place] [address] [facility] [place] [address] Ovidio Nolen MD [address] [place] [address] documented as of this encounter Visit Diagnoses Diagnosis Diabetes mellitus type II, uncontrolled- Primary Type II or unspecified type diabetes mellitus without mention of complication, uncontrolled Multiple thyroid nodules Nontoxic multinodular goiter Hypercalcemia documented in this encounter Care Teams Nuclear Technician Relationship Specialty Start Date End Date Grupo Garcia MD PCP - General Internal Medicine 08/14/10 06/22/15 documented as of this encounter
--- OUTSIDE RECORDS SUMMARY | 2024-05-26 13:17 | XMS_ITS | Encounter Summary ---
Author Organization [facility] Address [address] [place] [address] Care Team Providers Care Career Coordinator Name Role Phone Grupo Garcia MD Primary Care Provider Unavailab le Encounter Details Date Type Department Care Team (Late Contact Info) Description 05/04/2015 Abstract [facility] Endocrinology [address] [place] [address] Yuliya Ibarra MD [address] [place] [address] Social History Tobacco Use Types [...] (Late Contact Info) Description 07/12/2024 2:30 PM FABRIC COATING SUPERVISOR Office Visit [facility] Oncology and Hematology - [place] [address] [facility] [address] [place] [address] Ovidio Nolen MD [address] [place] [address] documented as of this encounter Visit Diagnoses Not on filedocumented in this encounter Care Teams Career Coordinator Relationship Specialty Start Date End Date Grupo Garcia MD PCP - General Internal Medicine 08/14/10 2 documented as of this encounter
--- OUTSIDE RECORDS SUMMARY | 2024-05-26 13:17 | XMS_ITS | Encounter Summary ---
Author Organization [facility] Address [address] [place] [address] Care Team Providers Care Revenue Accounting Manager Name Role Phone Julian Payne MD Primary Care Provider Encounter Details Date Type Department Care Team (Late st Contact Info) Description 07/25/2015 Abstract [facility] Endocrinology [address] [place] [address] Yuliya Ibarra MD [address] [place] [address] Social History Tobacco Use Types [...] Contact Info) Description 07/12/2024 2:30 PM PROPERTY CUSTODIAN Office Visit [facility] Oncology and Hematology - [place] [address] [place] [address] Ovidio Nolen MD [address] [place] [address] documented as of this encounter Visit Diagnoses Not on filedocumented in this encounter Care Teams Revenue Accounting Manager Relationship Specialty Start Date End Date Julian Payne MD PCP - General Internal Medicine 06/23/15 2 documented as of this encounter
--- OUTSIDE RECORDS SUMMARY | 2024-05-26 13:17 | XMS_ITS | Encounter Summary ---
Author Organization [facility] Address [address] [place] [address] Care Team Providers Care Core Drill Operator Name Role Phone Grupo Garcia MD Primary Care Provider Unavailab le Reason for Visit * Reason Onset Date Comments Results 03/16/2015 a1c Encounter Details Date Type Department Care Team (Late st Contact Info) Description 03/16/2015 Patient Outreach [facility] Endocrinology [address] [place] [address] Yuliya Ibarra MD [address] [place] [address] Results (a1c) Social History Tobacco [...] * Telephone Encounter - Kati Quintero - 03/16/2015 10:07 AM CDT Spoke to pt and informed of blood test results received. Scanned to [facility] documented in this encounter Plan of Treatment Upcoming Encounters Date Type Department Care Team (Late st Contact Info) Description 07/12/2024 2:30 PM CONCRETE FINISHER Office Visit [facility] Oncology and Hematology - [place] [address] [place] [address] Ovidio Nolen MD [address] [place] [address] documented as of this encounter Procedures Procedure Name Priority Date/Time Associated Diagnosis Comments HEMOGLOBIN A1C Routine 03/10/2015 documented in this encounter Results * (ABNORMAL) HEMOGLOBIN A1C (03/10/2015) SHELL RECORD 708 [facility] HEMOGLOBIN A1C 7.7(A) 4.7 - 6.4 % NON [facility] HEMOGLOBIN A1C NON [facility] GLUCOSE, MEAN BLOOD NON [facility] Blood specimen (specimen) 03/10/2015 Yuliya Ibarra MD CHEMISTRY ORDERABLES NON [facility] documented in this encounter Visit Diagnoses Not on filedocumented in this encounter Care Teams Core Drill Operator Relationship Specialty Start Date End Date Grupo Garcia MD PCP - General Internal Medicine 08/14/10 06/22/15 documented as of this encounter
--- OUTSIDE RECORDS SUMMARY | 2024-05-26 13:17 | XMS_ITS | Encounter Summary ---
Author Organization [facility] Address [address] [place] [address] Care Team Providers Care R&D Lab Technician Name Role Phone Grupo Garcia MD Primary Care Provider Unavailab le Encounter Details Date Type Department Care Team (Late Contact Info) Description 12/07/2014 Orders Only [facility] Admitting [address] [place] [address] Yuliya Ibarra MD [address] [place] [address] Social History Tobacco Use Types [...] (Late Contact Info) Description 07/12/2024 2:30 PM PROTEIN SCIENTIST Office Visit [facility] Oncology and Hematology - [place] [address] [facility] [address] [place] [address] Ovidio Nolen MD [address] [place] [address] documented as of this encounter Visit Diagnoses Not on filedocumented in this encounter Care Teams R&D Lab Technician Relationship Specialty Start Date End Date Grupo Garcia MD PCP - General Internal Medicine 08/14/10 2 documented as of this encounter
--- OUTSIDE RECORDS SUMMARY | 2024-05-26 13:17 | XMS_ITS | Encounter Summary ---
Author Organization [facility] Address [address] [place] [address] Care Team Providers Care Hardening Machine Operator Name Role Phone Grupo Garcia MD Primary Care Provider Unavailab le Reason for Visit * Reason Onset Date Comments Information 10/20/2014 bs logs Encounter Details Date Type Department Care Team (Late st Contact Info) Description 10/20/2014 Patient Outreach [facility] Endocrinology [address] [place] [address] Yuliya Ibarra MD [address] [place] [address] Information (bs logs) Social History Tobacco Use Types [...] * Telephone Encounter - Kati Quintero - 10/20/2014 4:41 PM CDT Pt informed bs log received and reviewed. Also informed of changes to meds. medlist updated. documented in this encounter Plan of Treatment Upcoming Encounters Date Type Department Care Team (Late st Contact Info) Description 07/12/2024 2:30 PM TACKER OFF Office Visit [facility] Oncology and Hematology - [place] [address] [place] [address] Ovidio Nolen MD [address] [place] [address] documented as of this encounter Visit Diagnoses Not on filedocumented in this encounter Care Teams Hardening Machine Operator Relationship Specialty Start Date End Date Grupo Garcia MD PCP - General Internal Medicine 08/14/10 06/22/15 documented as of this encounter
--- OUTSIDE RECORDS SUMMARY | 2024-05-26 13:17 | XMS_ITS | Encounter Summary ---
Author Organization [facility] Address [address] [place] [address] Care Team Providers Care Supervisor Pastry Name Role Phone Grupo Garcia MD Primary Care Provider Unavailab le Reason for Visit * Reason Onset Date Comments Needs Form Or Letter Filled Out 07/18/2014 tradjenta Encounter Details Date Type Department Care Team (Late st Contact Info) Description 07/18/2014 Telephone [facility] Endocrinology [address] [place] [address] Yuliya Ibarra MD [address] [place] [address] Needs Form Or Letter Filled Out (tradjenta) Social History Tobacco Use Types Packs/Day Years [...] * Telephone Encounter - Bekah Wang - 07/18/2014 5:06 PM CST Per pt insurance tradjenta is no longer formulary . Spoke with pharm , januvia 50mg daily is covered Pt informed of change , Rx pended for md signature ER ENGINEER HELPER documented in this encounter Plan of Treatment Upcoming Encounters Date Type Department Care Team (Late st Contact Info) Description 07/12/2024 2:30 PM WASHER ENGINEER HELPER Office Visit [facility] Oncology and Hematology - [place] [address] [email or web address] [address] [place] [address] Ovidio Nolen MD [address] [facility] [place] [address] documented as of this encounter Visit Diagnoses Diagnosis Diabetes mellitus type II, uncontrolled- Primary Type II or unspecified type diabetes mellitus without mention of complication, uncontrolled documented in this encounter Care Teams Supervisor Pastry Relationship Specialty Start Date End Date Grupo Garcia MD PCP - General Internal Medicine 08/14/10 2 documented as of this encounter
--- OUTSIDE RECORDS SUMMARY | 2024-05-26 13:17 | XMS_ITS | Encounter Summary ---
Author Organization [facility] Address [address] [place] [address] Care Team Providers Care Lumber Straightened Name Role Phone Grupo Garcia MD Primary Care Provider Unavailab le Encounter Details Date Type Department Care Team (Late Contact Info) Description 05/06/2014 Orders Only [facility] Endocrinology [address] [facility] [place] [address] Provider, Abstract NO ADDRESS ON [...] st Contact Info) Description 07/12/2024 2:30 PM ESCALATOR CONSTRUCTOR Office Visit [facility] Oncology and Hematology - [place] [address] [facility] [address] [place] [address] Ovidio Nolen MD [address] [facility] [address] [place] [address] documented as of this encounter Procedures Procedure Name Priority Date/Time Associated Diagnosis Comments MISCELLANEOUS LAB TEST Routine 04/19/2014 documented in this encounter Results * MISCELLANEOUS LAB TEST (04/19/2014) Specimen of unknown material (specimen) Abstract Provider CHEMISTRY ORDERABLES Performing Organization Address City/State/[facility] Co de Phone Number [facility]# [id number] [address] [place] [address] documented in this encounter Visit Diagnoses Not on filedocumented in this encounter Care Teams Lumber Straightened Relationship Specialty Start Date End Date Grupo Garcia MD PCP - General Internal Medicine 08/14/10 2 documented as of this encounter
--- OUTSIDE RECORDS SUMMARY | 2024-05-26 13:17 | XMS_ITS | Encounter Summary ---
Author Organization [facility] Address [address] [place] [address] Care Team Providers Care Polymer Tester Name Role Phone Grupo Garcia MD Primary Care Provider Unavailab le Reason for Visit * Reason Onset Date Comments Erroneous encounter-disregard 03/16/2015 Encounter Details Date Type Department Care Team (Late Contact Info) Description 03/16/2015 Telephone [facility] Endocrinology [address] [place] [address] Yuliya Ibarra MD [address] [place] [address] Erroneous encounter-disregard Social History Tobacco [...] (Late Contact Info) Description 07/12/2024 2:30 PM AMMONIA STILL OPERATOR Office Visit [facility] Oncology and Hematology - [place] [address] [place] [address] Ovidio Nolen MD [address] [facility] [address] [place] [address] documented as of this encounter Visit Diagnoses Not on filedocumented in this encounter Care Teams Polymer Tester Relationship Specialty Start Date End Date Grupo Garcia MD PCP - General Internal Medicine 08/14/10 2 documented as of this encounter
--- OUTSIDE RECORDS SUMMARY | 2024-05-26 13:17 | XMS_ITS | Encounter Summary ---
Author Organization [facility] Address [address] [place] [address] Care Team Providers Care Windows Vmware Administrator Name Role Phone Grupo Garcia MD Primary Care Provider Unavailab le Reason for Visit * Reason Onset Date Comments Results 12/07/2014 Encounter Details Date Type Department Care Team (Late st Contact Info) Description 12/07/2014 Telephone [facility] Endocrinology [address] [place] [address] Fernanda Kuhn MD [address] [place] [address] Results Social History Tobacco Use [...] Addendum Note - Fernanda Kuhn MD - 12/08/2014 8:43 AM CDTAddended by: FERNANDA KUHN on: 12/08/2014 08:43 AM Modules accepted: Orders * Addendum Note - Isabell Cordoba - 12/08/2014 8:37 AM CDTAddended by: ISABELL CORDOBA on: 12/08/2014 08:37 AM Modules accepted: Orders * Telephone Encounter - Isabell Cordoba - 12/08/2014 8:33 AM CDT Called pt and informed of dr tomasa and pt is agreeable to dose change. New rx pending dr sevilla * Telephone Encounter - Fernanda Kuhn MD - 12/07/2014 3:54 PM CDT She may take 40 mEQ * Telephone Encounter - Isabell Cordoba - 12/07/2014 3:40 PM CDT Spoke to pt and informed of results. Pt voiced understanding. She is currently taking kcl 20meq.. Do you want her to add 20 meq to what is taking? Please advise * Telephone Encounter - Isabell Cordoba - 12/07/2014 3:39 PM CDT ----- Message from Fernanda Kuhn MD sent at 12/07/2014 2:14 PM CDT ----- Calcium is better Potassium is till too low. Add KCL 20 meq daily. Recheck BMP in 4 weeks. Her HgA1C was done too early, was supposed get done 3 months after her last one. documented in this encounter Plan of Treatment Upcoming Encounters Date Type Department Care Team (Late st Contact Info) Description 07/12/2024 2:30 PM LABORER HEADING Office Visit [facility] Oncology and Hematology - [place] [address] [place] [address] Ovidio Nolen MD [address] [address] documented as of this encounter Results * (ABNORMAL) BASIC METABOLIC PANEL (01/06/2015 12:18 PM CDT) SODIUM 142 136 - 145 mmol/L 01/06/2015 1:51 PM CDT [facility] POTASSIUM 4.4 3.5 - 5.0 mmol/L 01/06/2015 1:51 PM CDT [facility] CHLORIDE 104 98 - 107 mmol/L 01/06/2015 1:51 PM CDT [facility] CO2 26 22 - 29 mmol/L 01/06/2015 1:51 PM CDT [facility] CALCIUM 11.2(H) 8.6 - 10.2 mg/dL 01/06/2015 1:51 PM CDT [facility] BUN 17 8 - 23 mg/dL 01/06/2015 1:51 PM CDT [facility] CREATININE 0.87 0.51 - 0.95 mg/dL 01/06/2015 1:51 PM CDT [facility] Comment: The GFR result is not clinically significant on patients <18 or >70 years of age. GLUCOSE 158(H) 79 - 99 mg/dL 01/06/2015 1:51 PM CDT [facility] GFR >60 mL/min/1.7 3 sq meter 01/06/2015 1:51 PM CDT [facility] Comment: eGFR has not been [...] 3 sq meter 01/06/2015 1:51 PM CDT [facility] ANION GAP 12 8 - 16 mmol/L 01/06/2015 1:51 PM CDT [facility] Blood Venipuncture - L ab Collect / Unknown 01/06/2015 12:18 PM CDT 01/06/2015 12:55 PM CDT Fernanda Kuhn MD CHEMISTRY ORDERABLES Performing Organization Address City/State/[facility] Co de Phone Number [facility]# [id number] [address] [facility] [place] [place] [address] documented in this encounter Visit Diagnoses Diagnosis Low blood potassium- Primary Hypopotassemia documented in this encounter Care Teams Windows Vmware Administrator Relationship Specialty Start Date End Date Grupo Garcia MD PCP - General Internal Medicine 08/14/10 06/22/15 documented as of this encounter
--- OUTSIDE RECORDS SUMMARY | 2024-05-26 13:17 | XMS_ITS | Encounter Summary ---
Author Organization [facility] Address [address] [place] [address] Care Team Providers Care Boiler Repairman Name Role Phone Grupo Garcia MD Primary Care Provider Unavailab le Reason for Visit * Reason Onset Date Comments Other 08/19/2014 Encounter Details Date Type Department Care Team (Late st Contact Info) Description 08/19/2014 Telephone [facility] Endocrinology [address] [place] [address] Yuliya Ibarra MD [address] [place] [address] Other Social History Tobacco Use Types Packs/Day Years [...] Telephone Encounter - Isidra Baker RMA - 08/19/2014 2:45 PM CDT Therapeutic shoes forms faxed back to hand tool filer. * Telephone Encounter - Yuliya Ibarra MD - 08/19/2014 1:20 PM CDT I got the fax and I will work on the form. * Telephone Encounter - Isidra Baker RMA - 08/19/2014 1:16 PM CDT Pt. Called regarding a fax from her hand tool filer Dr. Callejas, have you received and sent back? documented in this encounter Plan of Treatment Upcoming Encounters Date Type Department Care Team (Late st Contact Info) Description 07/12/2024 2:30 PM GREASE MACHINE WORKER Office Visit [facility] Oncology and Hematology - [place] [address] [facility] [address] [place] [address] Ovidio Nolen MD [address] [address] [place] [address] documented as of this encounter Visit Diagnoses Not on filedocumented in this encounter Care Teams Boiler Repairman Relationship Specialty Start Date End Date Grupo Garcia MD PCP - General Internal Medicine 08/14/10 06/22/15 documented as of this encounter
--- OUTSIDE RECORDS SUMMARY | 2024-05-26 13:17 | XMS_ITS | Encounter Summary ---
Author Organization [facility] Address [address] [place] [address] Care Team Providers Care Director Of Product Development Name Role Phone Grupo Garcia MD Primary Care Provider Unavailab le Reason for Visit * Reason Onset Date Comments Medication Refill 04/21/2014 Encounter Details Date Type Department Care Team (Late st Contact Info) Description 04/21/2014 Refill [facility] Endocrinology [address] [place] [address] Yuliya Ibarra MD [address] [place] [address] Social History Tobacco Use [...] encounter Miscellaneous Notes * Telephone Encounter - Sejal Huffman - 04/21/2014 10:30 AM CST galo 11/17/13 cx 11/22/13 cx 03/21/14 Nov 05/02/14 E PAINTER documented in this encounter Plan of Treatment Upcoming Encounters Date Type Department Care Team (Late st Contact Info) Description 07/12/2024 2:30 PM PLATE PAINTER Office Visit [facility] Oncology and Hematology - [place] [address] [place] [address] Ovidio Nolen MD [address] [facility] [address] [place] [address] documented as of this encounter Visit Diagnoses Not on filedocumented in this encounter Care Teams Director Of Product Development Relationship Specialty Start Date End Date Grupo Garcia MD PCP - General Internal Medicine 08/14/10 06/22/15 documented as of this encounter
--- OUTSIDE RECORDS SUMMARY | 2024-05-26 13:17 | XMS_ITS | Encounter Summary ---
Author Organization [facility] Address [address] [place] [address] Care Team Providers Care Latent Print Examiner Name Role Phone Julian Payne MD Primary Care Provider [phone] Reason for Visit * Reason Comments Diabetes Encounter Details Date Type Department Care Team (Late st Contact Info) Description 06/23/2015 9:45 AM HOSPICE ENTRANCE ATTENDANT Office Visit [facility] Endocrinology [address] [place] [address] Yuliya Ibarra MD [address] [place] [address] Type 2 diabetes mellitus without complication (Primary Dx); Hyperparathyroidism; Hypercalcemia; Hypokalemia; Multiple thyroid nodules Social History Tobacco Use [...] Sign Reading Time Taken Comments Blood Pressure 124/78 06/23/2015 9:31 AM HOSPICE ENTRANCE ATTENDANT Pulse 82 06/23/2015 9:31 AM HOSPICE ENTRANCE ATTENDANT Temperature - - Respiratory Rate - - Oxygen Saturation - - Inhaled Oxygen Concentration - - Weight 92.5 kg (204 lb) 06/23/2015 9:31 AM HOSPICE ENTRANCE ATTENDANT Height 165.1 cm (5' 5 ) 06/23/2015 9:31 AM HOSPICE ENTRANCE ATTENDANT Body Mass Index 33.95 06/23/2015 9:31 AM HOSPICE ENTRANCE ATTENDANT documented in this encounter Progress Notes * Yuliya Ibarra MD - 06/23/2015 9:42 AM CST [facility] Endocrinology Yuliya Ibarra M.D. PCP: Dr. Julian Payne Real Estate Processor: Dr. Alexandre Reese Neurologist: Dr. Nelson Ross Repairer And Checker: Dr. Krishan Moran Vascular Surgeon: Dr. Elle Landaverde Terminal Block Assembler: Dr. Laz Valencia Senior Etl Developer: Dr. Phuong Callejas Reason for visit: DM [...] Januvia 100 mg daily, Levemir 10 units qhs. Could not tolerate Metformin secondary to diarrhea. Checks her blood sugars 2 times daily, reviewed patient's numbers. 118-156 in am and 120 to 169 in pm. Glucometer: has one. Last eye exam: 3 months ago - has glaucoma. No hypoglycemia. Goes to a chip loft worker. Patient was found to have hypercalcemia, parathyroid [...] DAILY WITH BREAKFAST 360 Tablet 0 ??? LEVEMIR FLEXTOUCH 100 unit/mL (3 mL) Insulin Pen INJECT 5 UNITS SUBCUTANEOUSLY IN THE MORNING (Patient taking differently: INJECT 10 UNITS SUBCUTANEOUSLY IN THE MORNING) 15 mL 0 ??? blood sugar diagnostic (FREESTYLE LITE STRIPS) Strip Pt checks 2 times a day dx E11.65. 200 Strip 1 ??? sitaGLIPtin (JANUVIA) 100 mg Tablet Take 1 Tablet (100 mg) by mouth daily with breakfast. 90 Tablet 1 ??? glimepiride (AMARYL) 1 mg tablet TAKE 1 AND A HALF TABS WITH BREAKFAST TAKE 2 TABLET AT LUNCH AND TAKE 2 TABLET AT DINNER. (Patient taking differently: TAKE 1 AND A HALF TABS WITH BREAKFAST TAKE 2 TABLET AT LUNCH AND TAKE 2 1/2 TABLET AT DINNER. ) 495 Tablet 1 ??? Insulin [place], Disposable, (HAYDEN PEN NEEDLE) 32 x 5/32 Needle 1 Each by [facility].(Non-Drug; Combo Route) route see administration instructions. 100 Each 1 ??? bimatoprost (LUMIGAN) 0.01 % solution 1 Drop daily at bedtime. ??? HYPROMELLOSE (SYSTANE GEL OP) by Ophthalmic route. PRN ??? lancets (FREESTYLE LANCETS) 28 gauge 100 Each by [facility].(Non-Drug; Combo Route) route daily. Dx code 250.02 [...] after stroke-none since ??? CVD (cerebrovascular disease) 5553-5293 TIA x2 ??? Duodenal ulcer 1978 ??? Shingles [id number] x3 ??? Glaucoma ??? Heart murmur ??? [...] from vocal cord ??? Hx hernia repair 2009-yarsani ne ??? Hx knee arthroscopy 2938-4711 right knee ??? Hx heart catheterization 2002 dr. Valencia ??? Hx surgical other 1984 surgery for broken nose ??? Pr repr vaginal prolapse,sacrosp lig 09/10/2010 SACROSPINOUS LIGAMENT FIXATION performed by FRANKLYN PACK at [facility] MAIN ??? Pr anter colporrhaphy,blad/vagina 09/10/2010 CYSTOCELE REPAIR performed by FRANKLYN PACK at [facility] MAIN ??? Hx surgical other 09/10/2010 ANTERIOR POSTERIOR REPAIR performed by FRANKLYN PACK at [facility] ??? Pr repair of perineum,non obstetrical 09/10/2010 PERINEOPLASTY performed by FRANKLYN PACK at [facility] MA[facility] ??? Pr post colporrhaphy,rectum/vagina 09/10/2010 RECTOCELE REPAIR performed by FRANKLYN PACK at [facility] MAIN ??? Pr repair enterocele,vag apprch 09/10/2010 ENTEROCELE REPAIR VAGINAL APPROACH performed by FRANKLYN PACK at [facility] Physical Findings: No results found for this visit on 06/23/15. Wt Readings from Last 3 Encounters: 06/23/15 92.534 kg (204 lb) 02/24/15 91.173 kg (201 lb) 11/14/14 90.719 kg (200 lb) BP 124/78 mmHg Pulse 82 Ht 5' 5 (1.651 m) Wt 92.534 [...] GAP 8-16 mmol/L 12 Component Latest Ref Rn 11/14/2014 11/14/2014 12/07/2014 12/07/2014 11:54 AM 11:54 [...] EST. AVG GLUCOSE, A1C 192 177 Reviewed [facility] lab result done on 04/19/14 CMP - [...] diet and exercise as tolerated with her. Recheck HgA1C, will try to add 5 units of Levemir in am if too high. Her HgA1C target is less than 7.5%. Ordered lipid profile, urine microalbumin/creatinine. Patient was asked to monitor blood sugars and write down how much diabetic meds taken/accucheck time/special circumstances Diabetes plan reviewed with patient. 2. Hypercalcemia - Most likely primary hyperparathyroidism. Discussed hypercalcemia management and most likely etiology, needs to stay well hydrated. Discussed surgery indications vs conservative management. Check BMP, intact PTH. Patient is taking HCTZ, which can contribute to her hypercalcemia, will stop and adjust her diuretics if calcium level increases significantly. 3. Hypokalemia - takes HCTZ, KCL 40 mEq daily, will recheck BMP. Normal potassium in February/2015. 3. Thyroid nodules - stable. Last ultrasound was done in 02/2015. Subclinical hypothyroidism. Patient is to call if [...] at any time. Sincerely, Yuliya Ibarra MD ICE ENTRANCE ATTENDANT * Kati Quintero - 06/23/2015 9:34 AM CST Pt here dm ICE ENTRANCE ATTENDANT documented in this encounter Plan of Treatment Upcoming Encounters Date Type Department Care Team (Late st Contact Info) Description 07/12/2024 2:30 PM HOSPICE ENTRANCE ATTENDANT Office Visit [facility] Oncology and Hematology - [place] [address] [place] [address] [address] [place] [address] Ovidio Nolen MD [address] [facility] [address] Scheduled Orders Name Type Priority Associated Diagnoses Orde r Schedule HEMOGLOBIN A1C Lab Routine Type 2 diabetes mellitus without complication Ordered: 06/23/2015 LIPID PANEL Lab Routine Type 2 diabetes mellitus without complication Ordered: 06/23/2015 BASIC METABOLIC PANEL Lab Routine Hyperparathyroidism Ordered: 06/23/2015 MICROALBUMIN/CREATININE RATIO, RANDOM UR Lab Routine Type 2 diabetes mellitus without complication Ordered: 06/23/2015 PTH INTACT Lab Routine Hyperparathyroidism Ordered: 06/23/2015 documented as of this encounter Visit Diagnoses Diagnosis Type 2 diabetes mellitus without complication- Primary Hyperparathyroidism Hyperparathyroidism, unspecified Hypercalcemia Hypokalemia Hypopotassemia Multiple thyroid nodules Nontoxic multinodular goiter documented in this encounter Care Teams Latent Print Examiner Relationship Specialty Start Date End Date Julian Payne MD PCP - General Internal Medicine 06/23/15 06/20/16 documented as of this encounter
--- OUTSIDE RECORDS SUMMARY | 2024-05-26 13:17 | XMS_ITS | Encounter Summary ---
Author Organization [facility] Address [address] [place] [address] Care Team Providers Care Project Manager/Design Manager Name Role Phone Julian Payne MD Primary Care Provider [phone] Reason for Visit * Reason Comments Diabetes Encounter Details Date Type Department Care Team (Late st Contact Info) Description 09/22/2015 10:00 AM CDT Office Visit [facility] Endocrinology [address] [place] [address] Yuliya Ibarra MD [address] [place] [address] Type 2 diabetes mellitus without complication (Primary Dx); Hypercalcemia; Multiple thyroid nodules Social History Tobacco [...] Sign Reading Time Taken Comments Blood Pressure 114/60 09/22/2015 9:28 AM CDT Pulse 80 09/22/2015 9:28 AM CDT Temperature - - Respiratory Rate - - Oxygen Saturation - - Inhaled Oxygen Concentration - - Weight 92.5 kg (204 lb) 09/22/2015 9:28 AM CDT Height 165.1 cm (5' 5 ) 09/22/2015 9:28 AM CDT Body Mass Index 33.95 09/22/2015 9:28 AM CDT documented in this encounter Progress Notes * Yuliya Ibarra MD - 09/22/2015 9:57 AM CDT [facility] Endocrinology Yuliya Ibarra M.D. PCP: Dr. Julian Payne Strategic Communications Manager: Dr. Alexandre Reese Neurologist: Dr. Nelson Ross Diesel Retrofit Installer: Dr. Krishan Moran Vascular Surgeon: Dr. Elle Landaverde Patient Financial Services Manager: Dr. Laz Valencia Staff Software Engineer: Dr. Phuong Callejas Reason for visit: DM [...] 12 units qhs, Jardiance 10 mg daily. Jardiance was recently added on 08/30/15 and sugars are better. She is staying well hydrated. Could not tolerate Metformin secondary to diarrhea. Checks her blood sugars 2 times daily, reviewed patient's numbers. 118-156 in am and 120 to 169 in pm. Glucometer: has one. Last eye exam: 3 months ago - has glaucoma. No hypoglycemia. Goes to a roustabout supervisor. Patient was found to have hypercalcemia, parathyroid [...] DAILY WITH BREAKFAST 360 Tablet 0 ??? FREESTYLE LITE STRIPS Strip TEST BLOOD SUGARS TWICE A DAY 200 Strip 0 ??? Insulin [place], Disposable, (HAYDEN PEN NEEDLE) 32 gauge x 5/32 Needle To use one daily DX E11.65. 100 Each 1 ??? insulin detemir (LEVEMIR FLEXTOUCH) 100 unit/mL Insulin Pen 10 units sq daily in am. 15 mL 0 ??? glimepiride (AMARYL) 1 mg tablet TAKE 1 AND A HALF TABS WITH BREAKFAST TAKE 2 TABLET AT LUNCH AND TAKE 2 TABLET AT DINNER. (Patient taking differently: TAKE 1 AND A HALF TABS WITH BREAKFAST TAKE 2 TABLET AT LUNCH AND TAKE 2 1/2 TABLET AT DINNER. ) 495 Tablet 1 ??? bimatoprost (LUMIGAN) 0.01 % solution 1 Drop daily at bedtime. ??? HYPROMELLOSE (SYSTANE GEL OP) by Ophthalmic route. PRN ??? lancets (FREESTYLE LANCETS) 28 gauge 100 Each by [facility].(Non-Drug; Combo Route) route daily. [...] after stroke-none since ??? CVD (cerebrovascular disease) 1838-1343 TIA x2 ??? Duodenal ulcer 1978 ??? Shingles [phone] x3 ??? Glaucoma ??? Heart murmur ??? [...] from vocal cord ??? Hx hernia repair 2009-anglican ne ??? Hx knee arthroscopy 2918-1435 right knee ??? Hx heart catheterization 2002 dr. Valencia ??? Hx surgical other 1985 surgery for broken nose ??? Pr repr vaginal prolapse,sacrosp lig 09/10/2010 SACROSPINOUS LIGAMENT FIXATION performed by FRANKLYN PACK at [facility] MAIN ??? Pr anter colporrhaphy,blad/vagina 09/10/2010 CYSTOCELE REPAIR performed by FRANKLYN PACK at [facility] MAIN ??? Hx surgical other 09/10/2010 ANTERIOR POSTERIOR REPAIR performed by FRANKLYN PACK at [facility] ??? Pr repair of perineum,non obstetrical 09/10/2010 PERINEOPLASTY performed by FRANKLYN PACK at [facility] MA[facility] ??? Pr post colporrhaphy,rectum/vagina 09/10/2010 RECTOCELE REPAIR performed by FRANKLYN PACK at [facility] MAIN ??? Pr repair enterocele,vag apprch 09/10/2010 ENTEROCELE REPAIR VAGINAL APPROACH performed by FRANKLYN PACK at [facility] Physical Findings: No results found for this visit on 09/22/15. Wt Readings from Last 3 Encounters: 09/22/15 92.534 kg (204 lb) 06/23/15 92.534 kg (204 lb) 02/24/15 91.173 kg (201 lb) BP 114/60 mmHg Pulse 80 Ht 5' 5 (1.651 [...] EST. AVG GLUCOSE, A1C 192 177 Reviewed [facility] lab result done on 04/19/14 CMP [...] diet and exercise as tolerated with her. Jardiance was added on 08/30/15. I advised patient to stay well hydrated since she is also taking diuretics and had issues with hypokalemia and hypercalcemia. Will recheck BMP, HgA1C before next visit. Her HgA1C target is lower limit of 7%. Patient was asked to monitor blood sugars and write down how much diabetic meds taken/accucheck time/special circumstances Diabetes plan reviewed with patient. 2. Hypercalcemia - Most likely primary hyperparathyroidism. Discussed hypercalcemia management and most likely etiology, needs to stay well hydrated. Discussed surgery indications vs conservative management. Check BMP before next visit. 3. Hypokalemia - takes HCTZ, KCL 40 mEq daily 3. Thyroid nodules - stable. Last ultrasound [...] time. Sincerely, Yuliya Ibarra MD * Kati Qiuntero - 09/22/2015 9:28 AM CDT Pt here dm documented in this encounter Plan of Treatment Upcoming Encounters Date Type Department Care Team (Late st Contact Info) Description 07/12/2024 2:30 PM VALVE INSERTER Office Visit [facility] Oncology and Hematology - [place] [address] [facility] [address] [place] [address] Ovidio Nolen MD [address] [facility] [address] [place] [address] documented as of this encounter Visit Diagnoses Diagnosis Type 2 diabetes mellitus without complication- Primary Hypercalcemia Multiple thyroid nodules Nontoxic multinodular goiter documented in this encounter Care Teams Project Manager/Design Manager Relationship Specialty Start Date End Date Julian Payne MD PCP - General Internal Medicine 06/23/15 06/20/16 documented as of this encounter
--- OUTSIDE RECORDS SUMMARY | 2024-05-26 13:17 | XMS_ITS | Encounter Summary ---
Author Organization [facility] Address [address] [place] [address] Care Team Providers Care Caponizer Name Role Phone Grupo Garcia MD Primary Care Provider Unavailab le Encounter Details Date Type Department Care Team (Late Contact Info) Description 02/01/[address] [facility] Endocrinology [address] [place] [address] Yuliya Ibarra MD [address] [place] [address] Social History Tobacco Use Types [...] (Late Contact Info) Description 07/12/2024 2:30 PM PHYSICAL THERAPY AID Office Visit [facility] Oncology and Hematology - [place] [address] [facility] [address] [place] [address] Ovidio Nolen MD [address] [facility] [address] [place] [address] documented as of this encounter Visit Diagnoses Not on filedocumented in this encounter Care Teams Caponizer Relationship Specialty Start Date End Date Grupo Garcia MD PCP - General Internal Medicine 08/14/10 2 documented as of this encounter
--- OUTSIDE RECORDS SUMMARY | 2024-05-26 13:17 | XMS_ITS | Encounter Summary ---
Author Organization [facility] Address [address] [place] [address] Care Team Providers Care Photoresist Contact Printer Name Role Phone Grupo Garcia MD Primary Care Provider Unavailab le Encounter Details Date Type Department Care Team (Late Contact Info) Description 01/06/2015 Orders Only [facility] Admitting [address] [place] [address] Ailin Cha MD [address] [address] Social History Tobacco Use Types Packs/Day Years [...] st Contact Info) Description 07/12/2024 2:30 PM LICENSE DISTRIBUTOR Office Visit [facility] Oncology and Hematology - [place] [address] [place] [address] Ovidio Nolen MD [address] [facility] [address] [place] [address] documented as of this encounter Visit Diagnoses Not on filedocumented in this encounter Care Teams Photoresist Contact Printer Relationship Specialty Start Date End Date Grupo Garcia MD PCP - General Internal Medicine 08/14/10 06/22/15 documented as of this encounter
--- OUTSIDE RECORDS SUMMARY | 2024-05-26 13:17 | XMS_ITS | Encounter Summary ---
Author Organization [facility] Address [address] [place] [address] Care Team Providers Care Human Relations Professor Name Role Phone Grupo Garcia MD Primary Care Provider Unavailab le Reason for Visit * Reason Comments Medication Refill Encounter Details Date Type Department Care Team (Late st Contact Info) Description 06/12/2014 Refill [facility] Endocrinology [address] [place] [address] Yuliya Ibarra MD [address] [place] [address] Social History Tobacco Use Types [...] * Telephone Encounter - Sejal Huffman - 06/14/2014 4:18 PM CST galo 05/02/14 Nov 08/08/14 CUTTER documented in this encounter Plan of Treatment Upcoming Encounters Date Type Department Care Team (Late st Contact Info) Description 07/12/2024 2:30 PM LACE CUTTER Office Visit [facility] Oncology and Hematology - [place] [address] [place] [address] Ovidio Nolen MD [address] [place] [address] documented as of this encounter Visit Diagnoses Not on filedocumented in this encounter Care Teams Human Relations Professor Relationship Specialty Start Date End Date Grupo Garcia MD PCP - General Internal Medicine 08/14/10 2 documented as of this encounter
--- OUTSIDE RECORDS SUMMARY | 2024-05-26 13:17 | XMS_ITS | Encounter Summary ---
Author Organization [facility] Address [address] [place] [address] Care Team Providers Care Frozen Meat Cutter Name Role Phone Grupo Garcia MD Primary Care Provider Unavailab le Encounter Details Date Type Department Care Team (Late Contact Info) Description 12/07/2014 Orders Only [facility] Laboratory Services Medical [place] A [address] [facility] [place] [address] Mady Prakash Diabetes mellitus type II, uncontrolled Social History Tobacco Use Types Packs/Day [...] st Contact Info) Description 07/12/2024 2:30 PM TANGIBLE PERSONAL PROPERTY APPRAISER Office Visit [facility] Oncology and Hematology - [place] [address] [facility] [address] [place] [address] Ovidio Nolen MD [address] [facility] [address] [place] [address] documented as of this encounter Procedures Procedure Name Priority Date/Time Associated Diagnosis Comments HEMOGLOBIN A1C Routine 12/07/2014 10:41 AM CDT Diabetes mellitus type II, uncontrolled BASIC METABOLIC PANEL Routine 12/07/2014 10:40 AM CDT Diabetes mellitus type II, uncontrolled documented in this encounter Results * (ABNORMAL) HEMOGLOBIN A1C (12/07/2014 10:41 AM CDT) HEMOGLOBIN A1C 7.8(H) 4.1 - 6.1 % 12/07/2014 5:24 PM CDT [facility] LABORATORY [facility] EST. AVG GLUCOSE, A1C 177 mg/dL 12/07/2014 5:24 PM CDT [facility]OR[facility] Blood Venipuncture - L ab Collect / Unknown 12/07/2014 10:41 AM CDT 12/07/2014 11:32 AM CDT Narrative [facility] - 12/07/2014 5:24 PM CDT Based on the ADAG study equation. Yuliya Ibarra MD CHEMISTRY ORDERABLES [facility]# [id number] [address] [place] [address] * (ABNORMAL) BASIC METABOLIC PANEL (12/07/2014 10:40 AM CDT) Pathologist [facility] SODIUM 136 136 - 145 mmol/L 12/07/2014 12:20 PM CDT [facility] POTASSIUM 3.2(L) 3.5 - 5.0 mmol/L 12/07/2014 12:20 PM T [facility] CHLORIDE 99 98 - 107 mmol/L 12/07/2014 12:20 PM T [facility] CO2 26 22 - 29 mmol/L 12/07/2014 12:20 PM T [facility] CALCIUM 10.5(H) 8.6 - 10.2 mg/dL 12/07/2014 12:20 PM T [facility] BUN 20 8 - 23 mg/dL 12/07/2014 12:20 PM T [facility] CREATININE 0.82 0.51 - 0.95 mg/dL 12/07/2014 12:20 PM [facility] [employer] LABORATORY SERVICES - [facility] Comment: The GFR result is not clinically significant on patients <18 or >70 years of age. GLUCOSE 188(H) 79 - 99 mg/dL 12/07/2014 12:20 PM [facility] LABORATORY [facility] GFR >60 mL/min/1.7 3 sq meter 12/07/2014 12:20 PM [facility] LABORATORY [facility] Comment: eGFR has not [...] mL/min/1.7 3 sq meter 12/07/2014 12:20 PM [facility] [employer] LABORATORY SERVICES [facility] ANION GAP 11 8 - 16 mmol/L 12/07/2014 12:20 PM [facility] LABORATORY [facility] Blood Venipuncture - L ab Collect / Unknown 12/07/2014 10:40 AM CDT 12/07/2014 11:32 AM CDT Yuliya Ibarra MD CHEMISTRY ORDERABLES [facility] SERVICES [facility]# [id number] [address] [facility] [place] [address] documented in this encounter Visit Diagnoses Diagnosis Diabetes mellitus type II, uncontrolled Type II or unspecified type diabetes mellitus without mention of complication, uncontrolled documented in this encounter Care Teams Frozen Meat Cutter Relationship Specialty Start Date End Date Grupo Garcia MD PCP - General Internal Medicine 08/14/10 06/22/15 documented as of this encounter
--- OUTSIDE RECORDS SUMMARY | 2024-05-26 13:17 | XMS_ITS | Encounter Summary ---
Author Organization [facility] Address [address] [place] [address] Care Team Providers Care Vending Technician Name Role Phone Grupo Garcia MD Primary Care Provider Unavailab le Reason for Visit * Reason Comments Diabetes Encounter Details Date Type Department Care Team (Late st Contact Info) Description 11/14/2014 10:45 AM CDT Office Visit [facility] Endocrinology [address] [place] [address] Yuliya Ibarra MD [address] [place] [address] Diabetes mellitus type II, uncontrolled [...] Sign Reading Time Taken Comments Blood Pressure 128/68 11/14/2014 10:41 AM CDT Pulse 88 11/14/2014 10:41 AM CDT Temperature - - Respiratory Rate - - Oxygen Saturation - - Inhaled Oxygen Concentration - - Weight 90.7 kg (200 lb) 11/14/2014 10:41 AM CDT Height 165.1 cm (5' 5 ) 11/14/2014 10:41 AM CDT Body Mass Index 33.28 11/14/2014 10:41 AM CDT documented in this encounter Progress Notes * Kelly Mchugh RN - 11/14/2014 11:37 AM CDT Diabetes Follow Up Reviewed diet carbs Needs to try to be more active * Yuliya Ibarra MD - 11/14/2014 10:59 AM CDT [facility] Endocrinology Yuliya Ibarra M.D. PCP: Dr. Grupo Garcia Bulb Grower: Dr. Alexandre Reese Neurologist: Dr. Nelson Ross Water Control Supervisor: Dr. Krishan Moran Vascular Surgeon: Dr. Elle Landaverde Elevating Grader Operator: Dr. Laz Valencia Aircraft Captain: Dr. Phuong Callejas Reason for visit: DM [...] am, 2 mg with lunch and 2.5 mgwith dinner, Januvia 100 mg daily. Could not tolerate Metformin secondary to diarrhea. Checks her blood sugars 2 times daily, reviewed patient's numbers. Sugars are higher than goal - 160's to 200's in am and 120's to 200's later in the day. Has seen a cable mock up assembler at [facility]. She has been eating out a lot and thinks this is her problem. She is not very active at this time. Glucometer: has one. Last eye exam: 3 months ago - has glaucoma. No hypoglycemia. Goes to a mail distributor. 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 Her DEXA scan revealed osteopenia and she was found to have normal urine calcium level. Patient is taking Triamterene/ HCTZ for her legswelling. She denies having problems with high calcium in the past, denies nephrolithiasis, admits to memory issues. Her last calcium level was in upper normal range. Review of Systems: Endo/Gen: Her weight has [...] Refill ??? glimepiride (AMARYL) 1 mg tablet TAKE 1 AND A HALF TABS WITH BREAKFAST TAKE 2 TABLET AT LUNCH AND TAKE 2 TABLET AT DINNER. 495 Tab 1 ??? sitaGLIPtin (JANUVIA) 50 mg Tablet Take 1 Tab (50 mg) by mouth daily with breakfast. (Patient taking differently: Take 100 mg by mouth daily with breakfast . ) 90 Tab 1 ??? blood sugar diagnostic (FREESTYLE [...] after stroke-none since ??? CVD (cerebrovascular disease) 1432-2669 TIA x2 ??? Duodenal ulcer 1978 ??? Shingles [id number] x3 ??? Glaucoma ??? Heart murmur ??? [...] from vocal cord ??? Hx hernia repair 2009-mandaen ne ??? Hx knee arthroscopy 4077-0580 right knee ??? Hx heart catheterization 2002 dr. Valencia ??? Hx surgical other 1985 surgery for broken nose ??? Pr repr vaginal prolapse,sacrosp lig 09/10/2010 SACROSPINOUS LIGAMENT FIXATION performed by FRANKLYN PACK at [facility] ??? Pr anter colporrhaphy,blad/vagina 09/10/2010 CYSTOCELE REPAIR performed by RFANKLYN PACK at [facility] ??? Hx surgical other 09/10/2010 ANTERIOR POSTERIOR REPAIR performed by FRANKLYN PACK at [facility] ??? Pr repair of perineum,non obstetrical 09/10/2010 PERINEOPLASTY performed by FRANKLYN PACK at [facility] ??? Pr post colporrhaphy,rectum/vagina 09/10/2010 RECTOCELE REPAIR performed by FRANKLYN PACK at [facility] ??? Pr repair enterocele,vag apprch 09/10/2010 ENTEROCELE REPAIR VAGINAL APPROACH performed by FRANKLYN PACK at [facility] Physical Findings: No results found for this visit on 11/14/14. Wt Readings from Last 3 Encounters: 11/14/14 200 lb (90.719 kg) 08/08/14 201 lb (91.173 kg) 05/02/14 202 lb (91.627 kg) BP 128/68 mmHg Pulse 88 Ht 5' 5 (1.651 m) Wt 200 lb (90.719 kg) BMI 33.28 kg/m2 Normal blood pressure Physical Exam: General [...] exam. Psych: mood and affect appropriate. Lab: Reviewed [facility] lab result done on 04/19/14 CMP [...] Results Component Value Date/Time SODIUM 142 11/17/2013 03:36 PM SODIUM 140 04/28/2013 03:24 PM SODIUM 142 08/22/2010 01:45 PM POTASSIUM 3.9 11/17/2013 03:36 PM POTASSIUM 3.9 04/28/2013 03:24 PM POTASSIUM 3.5 08/22/2010 01:45 PM CHLORIDE 106 11/17/2013 03:36 PM CHLORIDE 101 04/28/2013 03:24 PM CHLORIDE 106 08/22/2010 01:45 PM CO2 28 11/17/2013 03:36 PM CO2 27 04/28/2013 03:24 PM CO2 28 08/22/2010 01:45 PM BUN 21* 11/17/2013 03:36 PM BUN 20 04/28/2013 03:24 PM BUN 18 08/22/2010 01:45 PM GLUCOSE 139* 11/17/2013 03:36 PM GLUCOSE 231* 04/28/2013 03:24 PM GLUCOSE 136* 08/22/2010 01:45 PM Lab Results Component Value Date/Time CREATININE 0.86 11/17/2013 03:36 PM CREATININE 0.84 04/28/2013 03:24 PM CREATININE 0.76 08/22/2010 01:45 PM Lab Results Component Value Date/Time TSH [...] and exercise as tolerated with her. discussed insulin with patient, starting a bedtime Lantus dose. She is unsure at this time. She has seen Kelly for diet discussion. Recheck HgA1C, BMP. Her HgA1C target is less than 7.5%. Patient was asked to monitor blood sugars and write down how much diabetic meds taken/accucheck time/special circumstances Diabetes plan reviewed with patient. 2. Hypercalcemia -Stable, will continue to monitor. Most likely primary hyperparathyroidism. Patient is taking HCTZ, which [...] Yuliya Ibarra MD * Kati Quintero - 11/14/2014 10:41 AM CDT Pt here dm. documented in this encounter Plan of Treatment Upcoming Encounters Date Type Department Care Team (Late st Contact Info) Description 07/12/2024 2:30 PM BEVERAGE SERVER Office Visit [facility] Oncology and Hematology - [place] [address] [facility] [address] [facility] [address] [place] [address] Ovidio Nolen MD [address] [place] [address] documented as of this encounter Results * (ABNORMAL) BASIC METABOLIC PANEL (11/14/2014 11:54 AM CDT) SODIUM 140 136 - 145 mmol/L 11/14/2014 1:36 PM CDT [facility] LABORATORY SERVICES - . [place] POTASSIUM 3.3(L) 3.5 - 5.0 mmol/L 11/14/2014 1:36 PM CDT [facility] LABORATORY SERVICES - [facility] [place] CHLORIDE 103 98 - 107 mmol/L 11/14/2014 1:36 PM CDT [facility] LABORATORY SERVICES - [facility] [place] CO2 26 22 - 29 mmol/L 11/14/2014 1:36 PM CDT [facility] LABORATORY SERVICES - [facility] [place] CALCIUM 11.2(H) 8.6 - 10.2 mg/dL 11/14/2014 1:36 PM CDT [facility] LABORATORY SERVICES - [facility] [place] BUN 18 8 - 23 mg/dL 11/14/2014 1:36 PM CDT [facility] LABORATORY SERVICES - . [place] CREATININE 0.83 0.51 - 0.95 mg/dL 11/14/2014 1:36 PM CDT [facility] LABORATORY SERVICES - . [place] Comment: The GFR result is not clinically significant on patients <18 or >70 years of age. GLUCOSE 201(H) 79 - 99 mg/dL 11/14/2014 1:36 PM CDT [facility] [employer] [facility] GFR >60 mL/min/1.7 3 sq meter 11/14/2014 1:36 PM CDT [facility] [employer] [facility] Comment: eGFR has not [...] result. GFR, >60 mL/min/1.7 3 sq meter 11/14/2014 1:36 PM CDT [facility] [employer] [facility] ANION GAP 11 8 - 16 mmol/L 11/14/2014 1:36 PM T [facility] [employer] [facility] Blood Venipuncture - L ab Collect / Unknown 11/14/2014 11:54 AM CDT 11/14/2014 12:39 PM CDT Yuliya Ibarra MD CHEMISTRY ORDERABLES [facility] [employer] [facility]# [id number] [address] [place] [address] * (ABNORMAL) HEMOGLOBIN A1C (11/14/2014 11:54 AM CDT) HEMOGLOBIN A1C 8.3(H) 4.1 - 6.1 % 11/14/2014 4:54 PM CDT [facility] [employer] [facility] EST. AVG GLUCOSE, A1C 192 mg/dL 11/14/2014 4:54 PM CDT [facility] [employer] [facility] Blood Venipuncture - L ab Collect / Unknown 11/14/2014 11:54 AM CDT 11/14/2014 12:36 PM CDT Narrative [facility] LABORATORY [facility] - 11/14/2014 4:54 PM CDT Based on the ADAG study equation. Yuliya Ibarra MD CHEMISTRY ORDERABLES Performing Organization Address City/State/[facility] [[email or web address]] Co de Phone Number [facility] LABORATORY SERVICES [facility]# [id number] [address] [place] [address] documented in this encounter Visit Diagnoses Diagnosis Diabetes mellitus type II, uncontrolled- Primary Type II or unspecified type diabetes mellitus without mention of complication, uncontrolled Multiple thyroid nodules Nontoxic multinodular goiter Hypercalcemia documented in this encounter Care Teams Vending Technician Relationship Specialty Start Date End Date Grupo Garcia MD PCP - General Internal Medicine 08/14/10 06/22/15 documented as of this encounter
--- OUTSIDE RECORDS SUMMARY | 2024-05-26 13:17 | XMS_ITS | Encounter Summary ---
Author Organization [facility] Address [address] [place] [address] Care Team Providers Care Meeting Coordinator Name Role Phone Grupo Garcia MD Primary Care Provider Unavailab le Encounter Details Date Type Department Care Team (Late Contact Info) Description 11/14/2014 Orders Only [facility] Laboratory Services Medical [place] A [address] [place] [address] Mady Prakash Diabetes mellitus type [...] st Contact Info) Description 07/12/2024 2:30 PM SURGICAL AIDE Office Visit [facility] Oncology and Hematology - [place] [address] [facility] [address] [place] [address] Ovidio Nolen MD [address] [facility] [address] [place] [address] documented as of this encounter Procedures Procedure Name Priority Date/Time Associated Diagnosis Comments HEMOGLOBIN A1C Routine 11/14/2014 11:54 AM CDT Diabetes mellitus type II, uncontrolled BASIC METABOLIC PANEL Routine 11/14/2014 11:54 AM CDT Diabetes mellitus type II, uncontrolled documented in this encounter Results * (ABNORMAL) BASIC METABOLIC PANEL (11/14/2014 11:54 AM CDT) SODIUM 140 136 - 145 mmol/L 11/14/2014 1:36 PM T [facility] LABORATORY SERVICES - [facility] POTASSIUM 3.3(L) 3.5 - 5.0 mmol/L 11/14/2014 1:36 PM T [facility] LABORATORY SERVICES - . [facility] CHLORIDE 103 98 - 107 mmol/L 11/14/2014 1:36 PM T [facility] LABORATORY SERVICES - . [facility] CO2 26 22 - 29 mmol/L 11/14/2014 1:36 PM T [facility] LABORATORY SERVICES - [facility] CALCIUM 11.2(H) 8.6 - 10.2 mg/dL 11/14/2014 1:36 PM T [facility] LABORATORY SERVICES - [facility] BUN 18 8 - 23 mg/dL 11/14/2014 1:36 PM T [facility] LABORATORY SERVICES - [facility] CREATININE 0.83 0.51 - 0.95 mg/dL 11/14/2014 1:36 PM T [employer] LABORATORY SERVICES [facility] Comment: The GFR result is not clinically significant on patients <18 or >70 years of age. GLUCOSE 201(H) 79 - 99 mg/dL 11/14/2014 1:36 PM T [employer] LABORATORY SERVICES [facility] GFR >60 mL/min/1.7 3 sq meter 11/14/2014 1:36 PM T [employer] LABORATORY SERVICES [facility] Comment: eGFR has not been validated [...] 3 sq meter 11/14/2014 1:36 PM CDT [facility] LABORATORY [facility] ANION GAP 11 8 - 16 mmol/L 11/14/2014 1:36 PM CDT [facility] [employer] [facility] Blood Venipuncture - L ab Collect / Unknown 11/14/2014 11:54 AM CDT 11/14/2014 12:39 PM CDT Yuliya Ibarra MD CHEMISTRY ORDERABLES Performing Organization Address City/[facility] Co de Phone Number [facility] [employer] [facility] [id number] [address] [place] [address] * (ABNORMAL) HEMOGLOBIN A1C (11/14/2014 11:54 AM CDT) HEMOGLOBIN A1C 8.3(H) 4.1 - 6.1 % 11/14/2014 4:54 PM CDT [facility] EST. AVG GLUCOSE, A1C 192 mg/dL 11/14/2014 4:54 PM CDT [facility] Blood Venipuncture - L ab Collect / Unknown 11/14/2014 11:54 AM CDT 11/14/2014 12:36 PM CDT Narrative [facility] LABORATORY [facility] - 11/14/2014 4:54 PM CDT Based on the ADAG study equation. Yuliya Ibarra MD CHEMISTRY ORDERABLES Performing Organization Address City/[facility] Co de Phone Number [facility] [employer] [facility]# [id number] [address] [place] [address] documented in this encounter Visit Diagnoses Diagnosis Diabetes mellitus type II, uncontrolled Type II or unspecified type diabetes mellitus without mention of complication, uncontrolled documented in this encounter Care Teams Meeting Coordinator Relationship Specialty Start Date End Date Grupo Garcia MD PCP - General Internal Medicine 08/14/10 06/22/15 documented as of this encounter
--- OUTSIDE RECORDS SUMMARY | 2024-05-26 13:17 | XMS_ITS | Encounter Summary ---
Author Organization [facility] Address [address] [place] [address] Care Team Providers Care Roll Carrier Name Role Phone Julian Payne MD Primary Care Provider [phone] Reason for Visit * Reason Comments Medication Refill Encounter Details Date Type Department Care Team (Late st Contact Info) Description 08/17/[address] [facility] Endocrinology [address] [place] [address] Yuliya Ibarra MD [address] [place] [address] Social History Tobacco Use Types [...] * Telephone Encounter - Bekah Wang - 08/17/2015 11:05 AM CDT galo 06/23/15 , nov 09/22/15 documented in this encounter Plan of Treatment Upcoming Encounters Date Type Department Care Team (Late st Contact Info) Description 07/12/2024 2:30 PM COLLECTIONS TECHNICIAN Office Visit [facility] Oncology and Hematology - [place] [address] [facility] [address] [place] [address] Ovidio Nolen MD [address] [facility] [address] [place] [address] documented as of this encounter Visit Diagnoses Not on filedocumented in this encounter Care Teams Roll Carrier Relationship Specialty Start Date End Date Julian Payne MD PCP - General Internal Medicine 06/23/15 06/20/16 documented as of this encounter
--- OUTSIDE RECORDS SUMMARY | 2024-05-26 13:17 | XMS_ITS | Encounter Summary ---
Author Organization [facility] Address [address] [place] [address] Care Team Providers Care Sales Representative [employer] Name Role Phone Grupo Garcia MD Primary Care Provider Unavailab le Reason for Visit * Reason Onset Date Comments Information 03/14/2015 bs logs Encounter Details Date Type Department Care Team (Late st Contact Info) Description 03/14/2015 Patient Outreach [facility] Endocrinology [address] [place] [address] Yuliya Ibarra MD [address] [place] [address] Information (bs logs) Social History [...] * Telephone Encounter - Kati Quintero - 03/14/2015 1:38 PM CDT reviewed BG logs and advised patient to keep insulin dose the same and have A!C prior to next appt. Patient informed and understands. documented in this encounter Plan of Treatment Upcoming Encounters Date Type Department Care Team (Late st Contact Info) Description 07/12/2024 2:30 PM WATCH AND CLOCK REPAIR CLERK Office Visit [facility] Oncology and Hematology - [place] [address] [facility] [address] [place] [address] Ovidio Nolen MD [address] [facility] [address] [place] [address] documented as of this encounter Visit Diagnoses Not on filedocumented in this encounter Care Teams Sales Representative [employer] Relationship Specialty Start Date End Date Grupo Garcia MD PCP - General Internal Medicine 08/14/10 06/22/15 documented as of this encounter
--- OUTSIDE RECORDS SUMMARY | 2024-05-26 13:17 | XMS_ITS | Encounter Summary ---
Author Organization [facility] Address [address] [place] [address] Care Team Providers Care Vat Tender Name Role Phone Grupo Garcia MD Primary Care Provider Unavailab le Encounter Details Date Type Department Care Team (Late Contact Info) Description 03/16/2015 Orders Only [facility] Endocrinology [address] [place] [address] Yuliya Ibarra MD [address] [place] [address] Social History Tobacco Use Types [...] (Late Contact Info) Description 07/12/2024 2:30 PM VETERINARIAN SMALL ANIMAL Office Visit [facility] Oncology and Hematology - [place] [address] [facility] [address] [place] [address] Ovidio Nolen MD [address] [facility] [address] [place] [address] documented as of this encounter Procedures Procedure Name Priority Date/Time Associated Diagnosis Comments MISCELLANEOUS LAB TEST Routine 03/10/2015 documented in this encounter Results * MISCELLANEOUS LAB TEST (03/10/2015) Specimen of unknown material (specimen) Yuliya Ibarra MD CHEMISTRY ORDERABLES Performing Organization Address City/State/[facility] Co de Phone Number [facility]# [id number] [address] [place] [address] documented in this encounter Visit Diagnoses Not on filedocumented in this encounter Care Teams Vat Tender Relationship Specialty Start Date End Date Grupo Garcia MD PCP - General Internal Medicine 08/14/10 06/22/15 documented as of this encounter
--- OUTSIDE RECORDS SUMMARY | 2024-05-26 13:17 | XMS_ITS | Encounter Summary ---
Author Organization [facility] Address [address] [place] [address] Care Team Providers Care Nut Former Name Role Phone Grupo Garcia MD Primary Care Provider Unavailab le Reason for Visit * Reason Onset Date Comments Diabetes 03/17/2014 Encounter Details Date Type Department Care Team (Late st Contact Info) Description 03/17/2014 Patient Outreach [facility] Endocrinology [address] [place] [address] Yuliya Ibarra MD [address] [place] [address] Diabetes Social History Tobacco Use [...] * Telephone Encounter - Sejal Huffman - 03/17/2014 1:46 PM CDT Informed pt of bs logs same no changes and to continue sending in bs logs documented in this encounter Plan of Treatment Upcoming Encounters Date Type Department Care Team (Late st Contact Info) Description 07/12/2024 2:30 PM SPOT WASHER Office Visit [facility] Oncology and Hematology - [place] [address] [place] [address] Ovidio Nolen MD [address] [facility] [address] [place] [address] documented as of this encounter Visit Diagnoses Not on filedocumented in this encounter Care Teams Nut Former Relationship Specialty Start Date End Date Grupo Garcia MD PCP - General Internal Medicine 08/14/10 2 documented as of this encounter
--- OUTSIDE RECORDS SUMMARY | 2024-05-26 13:17 | XMS_ITS | Encounter Summary ---
Author Organization [facility] Address [address] [place] [address] Care Team Providers Care Rail Track Maintainer Name Role Phone Grupo Garcia MD Primary Care Provider Unavailab le Reason for Visit * Reason Onset Date Comments Diabetes 12/09/2014 insulin start bg log Encounter Details Date Type Department Care Team (Late st Contact Info) Description 12/09/2014 Telephone [facility] Endocrinology [address] [place] [address] Yuliya Ibarra MD [address] [place] [address] Diabetes (insulin start bg log) Social History Tobacco Use Types Packs/Day [...] Telephone Encounter - Kelly Mchugh RN - 12/29/2014 8:54 AM CDT Pt taught how to use levemir pen and sample given see note * Telephone Encounter - Kelly Mchugh RN - 12/09/2014 4:12 PM CDT Notes Recorded by Yuliya Ibarra MD on 12/09/2014 at 3:06 PM HgA1C was 7.8% Were able to get a hold of her about her sugars? Pt informed will come in dec 27 for lantus teaching will start 5 units daily after taught how to use insulin pen * Telephone Encounter - Kelly Mchugh RN - 12/09/2014 4:12 PM CDT ----- Message from Yuliya Ibarra MD sent at 12/09/2014 3:06 PM CDT ----- HgA1C was 7.8% Were able to get a hold of her about her sugars? documented in this encounter Plan of Treatment Upcoming Encounters Date Type Department Care Team (Late st Contact Info) Description 07/12/2024 2:30 PM SHOP MECHANIC Office Visit [facility] Oncology and Hematology - [place] [address] [facility] [address] [place] [address] Ovidio Nolen MD [address] [facility] [address] [place] [address] documented as of this encounter Visit Diagnoses Not on filedocumented in this encounter Care Teams Rail Track Maintainer Relationship Specialty Start Date End Date Grupo Garcia MD PCP - General Internal Medicine 08/14/10 06/22/15 documented as of this encounter
--- OUTSIDE RECORDS SUMMARY | 2024-05-26 13:17 | XMS_ITS | Encounter Summary ---
Author Organization [facility] Address [address] [place] [address] Care Team Providers Care Fiber Technician Name Role Phone Grupo Garcia MD Primary Care Provider Unavailab le Reason for Visit * Reason Onset Date Comments Medication Refill 09/26/2014 Encounter Details Date Type Department Care Team (Late st Contact Info) Description 09/26/2014 Refill [facility] Endocrinology [address] [place] [address] Brandi Gerardo MD [address] [place] [address] Social History Tobacco Use Types Packs/Day Years [...] st Contact Info) Description 07/12/2024 2:30 PM PHYSICAL SECURITY ENGINEER Office Visit [facility] Oncology and Hematology - [place] [address] [place] [address] Ovidio Nolen MD [address] [facility] [facility] [address] [place] [address] documented as of this encounter Visit Diagnoses Not on filedocumented in this encounter Care Teams Fiber Technician Relationship Specialty Start Date End Date Grupo Garcia MD PCP - General Internal Medicine 08/14/10 06/22/15 documented as of this encounter
--- OUTSIDE RECORDS SUMMARY | 2024-05-26 13:17 | XMS_ITS | Encounter Summary ---
Author Organization [facility] Address [address] [place] [address] Care Team Providers Care Miller [employer]per Distillery Name Role Phone Grupo Garcia MD Primary Care Provider Unavailab le Reason for Visit * Reason Comments Diabetes Encounter Details Date Type Department Care Team (Latest Contact Info) Description 12/27/2014 11:00 AM CDT Clinical Support [facility] Endocrinology [address] [place] [address] Kelly Mchugh RN Diabetes mellitus type II, uncontrolled (Primary Dx) [...] Progress Notes * Kelly Mchugh RN - 12/29/2014 8:52 AM CDT Pt given sample of levemir pen and showed how to use it Pt here with her granddaughter documented in this encounter Miscellaneous Notes * Patient Instructions - Kelly Mchugh RN - 12/29/2014 8:50 AM CDT [place] Endocrinology & Diabetes Management Name: Perla Leon Date:12/29/2014 Insulin Teaching Meter: Freestyle/Flash Check blood sugar: before meals and bedtime Insulin Type: levemir flextouch Dose: 5 units am Taught: Attaching pen needle New pen setup Filling pen needle before each shot (air shot/ prime the pen) Dialing up dose Giving the injection 5 -10 second hold to ensure that the full dose is delivered Storing the pen Hypoglycemia causes symptoms treatment (Rule of 15) documented in this encounter Plan of Treatment Upcoming Encounters Date Type Department Care Team (Late st Contact Info) Description 07/12/2024 2:30 PM NODE JS DEVELOPER Office Visit [facility] Oncology and Hematology - [place] [address] [facility] [address] [place] [address] Ovidio Nolen MD [address] [facility] [address] [place] [address] documented as of this encounter Visit Diagnoses Diagnosis Diabetes mellitus type II, uncontrolled- Primary Type II or unspecified type diabetes mellitus without mention of complication, uncontrolled documented in this encounter Care Teams Miller [employer]illery Relationship Specialty Start Date End Date Grupo Garcia MD PCP - General Internal Medicine 08/14/10 06/22/15 documented as of this encounter
--- OUTSIDE RECORDS SUMMARY | 2024-05-26 13:17 | XMS_ITS | Encounter Summary ---
Author Organization [facility] Address [address] [place] [address] Care Team Providers Care Imaging Center Manager Name Role Phone Grupo Garcia MD Primary Care Provider Unavailab le Reason for Visit * Reason Onset Date Comments Medication Review 04/01/2014 dm Encounter Details Date Type Department Care Team (Late st Contact Info) Description 04/01/2014 Patient Outreach [facility] Endocrinology [address] [place] [address] Yuliya Ibarra MD [address] [place] [address] Medication Review (dm) Social History Tobacco Use Types Packs/Day Years [...] * Telephone Encounter - Kati Quintero - 04/01/2014 10:08 AM PHOTOGRAPHIC COLORIST reviewed BG logs and advised patient to keep insulin dose the same and have A!C prior to next appt. Patient informed and understands. OGRAPHIC COLORIST documented in this encounter Plan of Treatment Upcoming Encounters Date Type Department Care Team (Late st Contact Info) Description 07/12/2024 2:30 PM PHOTOGRAPHIC COLORIST Office Visit [facility] Oncology and Hematology - [place] [address] [facility] [address] [place] [address] Ovidio Nolen MD [address] [facility] [address] [place] [address] documented as of this encounter Visit Diagnoses Not on filedocumented in this encounter Care Teams Imaging Center Manager Relationship Specialty Start Date End Date Grupo Garcia MD PCP - General Internal Medicine 08/14/10 06/22/15 documented as of this encounter
--- OUTSIDE RECORDS SUMMARY | 2024-05-26 13:17 | XMS_ITS | Encounter Summary ---
Author Organization [facility] Address [address] [place] [address] Care Team Providers Care Collaborative Physician Name Role Phone Julian Payne MD Primary Care Provider [phone] Encounter Details Date Type Department Care Team (Late st Contact Info) Description 07/25/2015 Abstract [facility] Endocrinology [address] [place] [address] Yuliya Iabrra MD [address] [place] [address] Social History Tobacco Use Types [...] st Contact Info) Description 07/12/2024 2:30 PM ANTIQUE COLLECTOR Office Visit [facility] Oncology and Hematology - [place] [address] [place] [address] Ovidio Nolen MD [address] [facility] [address] [place] [address] documented as of this encounter Visit Diagnoses Not on filedocumented in this encounter Care Teams Collaborative Physician Relationship Specialty Start Date End Date Julian Payne MD PCP - General Internal Medicine 06/23/15 2 documented as of this encounter
--- OUTSIDE RECORDS SUMMARY | 2024-05-26 13:17 | XMS_ITS | Encounter Summary ---
Author Organization [facility] Address [address] [place] [address] Care Team Providers Care Non Destructive Testing Supervisor Name Role Phone Grupo Garcia MD Primary Care Provider Unavailab le Reason for Visit * Reason Comments Diabetes Encounter Details Date Type Department Care Team (Late st Contact Info) Description 08/08/2014 11:15 AM CDT Office Visit [facility] Endocrinology [address] [place] [address] Yuliya Ibarra MD [address] [facility] [address] [place] [address] Diabetes mellitus type II, uncontrolled [...] Sign Reading Time Taken Comments Blood Pressure 124/58 08/08/2014 11:19 AM CDT Pulse 80 08/08/2014 11:19 AM CDT Temperature - - Respiratory Rate - - Oxygen Saturation - - Inhaled Oxygen Concentration - - Weight 91.2 kg (201 lb) 08/08/2014 11:19 AM CDT Height 165.1 cm (5' 5 ) 08/08/2014 11:19 AM CDT Body Mass Index 33.45 08/08/2014 11:19 AM CDT documented in this encounter Progress Notes * Yuliya Ibarra MD - 08/08/2014 11:24 AM CDT [facility] Endocrinology Yuliya Ibarra M.D. PCP: Dr. Grupo Garcia Security Systems Specialist: Dr. Alexandre Reese Neurologist: Dr. Nelson Ross Telephone Mechanic: Dr. Krishan Moran Vascular Surgeon: Dr. Elle Landaverde Marine Farmer: Dr. Laz Valencia Superintendent Pressure: Dr. Phuong Callejas Reason for visit: DM [...] in am, 2 mg with lunch and 2 mg with dinner. Tradjenta 5 mg daily. Her Tradjenta is no longer covered by the insurance and she will be switched to Januvia 50 mg daily. Could not tolerate Metformin secondary to diarrhea. Checks her blood sugars 2 times daily, reviewed patient's numbers. Has seen a gas analyst at [facility]. Her last HgA1C was 7.6%, done 3 months ago. Glucometer: has one. Last eye exam: 3 months ago - has glaucoma. No hypoglycemia. Goes to a security and compliance project manager. Patient was found to have hypercalcemia, parathyroid [...] Outpatient Prescriptions Medication Sig Dispense Refill ??? sitaGLIPtin (JANUVIA) 50 mg Tablet Take 1 Tab (50 mg) by mouth daily with breakfast. 30 Tab 0 ??? glimepiride (AMARYL) 1 mg tablet [...] after stroke-none since ??? CVD (cerebrovascular disease) 2146-9812 TIA x2 ??? Duodenal ulcer 1978 ??? Shingles [id number] x3 ??? Glaucoma ??? Heart murmur ??? [...] from vocal cord ??? 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 Hx knee arthroscopy [id number] right knee ??? Hx heart catheterization 2002 dr. Valencia ??? Hx surgical other 1985 surgery for broken nose ??? Pr repr vaginal prolapse,sacrosp lig 09/10/2010 SACROSPINOUS LIGAMENT FIXATION performed by FRANKLYN PACK at [facility] ??? Pr anter colporrhaphy,blad/vagina 09/10/2010 CYSTOCELE REPAIR performed by FRANKLYN PACK at [facility] ??? Hx surgical other 09/10/2010 ANTERIOR POSTERIOR REPAIR performed by FRANKLYN PACK at [facility] ??? Pr repair of perineum,non obstetrical 09/10/2010 PERINEOPLASTY performed by FRANKLYN PACK at [facility] ??? Pr post colporrhaphy,rectum/vagina 09/10/2010 RECTOCELE REPAIR performed by FRANKLYN PACK at [facility] ??? Pr repair enterocele,vag apprch 09/10/2010 ENTEROCELE REPAIR VAGINAL APPROACH performed by FRANKLYN PACK at [facility] Physical Findings: No results found for this visit on 08/08/14. Wt Readings from Last 3 Encounters: 08/08/14 201 lb (91.173 kg) 05/02/14 202 lb (91.627 kg) 11/17/13 195 lb (88.451 kg) BP 124/58 Pulse 80 Ht 5' 5 (1.651 m) Wt 201 lb (91.173 kg) BMI 33.45 kg/m2 Physical Exam: General appearance: alert, well [...] Psych: mood and affect appropriate. Lab: Reviewed [facility] lab result done [...] adjust her medications to include the following: Changed Tradjenta to Januvia 50 mg, continue Glimepiride. Recheck HgA1C. Her HgA1C target is less than 7.5%. [...] Follow-up in 3 months or as needed. I would like to thank you for allowing me to participate in this patient's care, if you have any questions regarding my recommendations please do not hesitate to contact me at any time. Sincerely, Yuliya Ibarra MD * Kati Quintero - 08/08/2014 11:17 AM CDT Pt here dm documented in this encounter Plan of Treatment Upcoming Encounters Date Type Department Care Team (Late st Contact Info) Description 07/12/2024 2:30 PM FISCAL CLERK Office Visit [facility] Oncology and Hematology - [place] [address] [place] [address] Ovidio Nolen MD [address] [facility] [address] [place] [address] documented as of this encounter Results * (ABNORMAL) HEMOGLOBIN A1C (12/07/2014 10:41 AM CDT) HEMOGLOBIN A1C 7.8(H) 4.1 - 6.1 % 12/07/2014 5:24 PM CDT [facility] EST. AVG GLUCOSE, A1C 177 mg/dL 12/07/2014 5:24 PM CDT [facility] Blood Venipuncture - L ab Collect / Unknown 12/07/2014 10:41 AM CDT 12/07/2014 11:32 AM CDT Narrative [facility] - 12/07/2014 5:24 PM CDT Based on the ADAG study equation. Yuliya Ibarra MD CHEMISTRY ORDERABLES [facility] CLIA# [id number] [address] [place] [address] [place] [address] documented in this encounter Visit Diagnoses Diagnosis Diabetes mellitus type II, uncontrolled- Primary Type II or unspecified type diabetes mellitus without mention of complication, uncontrolled Multiple thyroid nodules Nontoxic multinodular goiter Hypercalcemia documented in this encounter Care Teams Non Destructive Testing Supervisor Relationship Specialty Start Date End Date Grupo Garcia MD PCP - General Internal Medicine 08/14/10 06/22/15 documented as of this encounter
--- OUTSIDE RECORDS SUMMARY | 2024-05-26 13:17 | XMS_ITS | Encounter Summary ---
Author Organization [facility] Address [address] [place] [address] Care Team Providers Care City Maintenance Manager Name Role Phone Grupo Garcia MD Primary Care Provider Unavailab le Reason for Visit * Reason Onset Date Comments Medication Refill 01/26/2015 Encounter Details Date Type Department Care Team (Late Contact Info) Description 01/26/2015 Refill [facility] Endocrinology [address] [place] [address] Yuliya Ibarra MD [address] [place] [address] Social History Tobacco Use Types [...] (Late Contact Info) Description 07/12/2024 2:30 PM PROP AND SCENERY MAKER Office Visit [facility] Oncology and Hematology - [place] [address] [place] [address] Ovidio Nolen MD [address] [facility] [address] [place] [address] documented as of this encounter Visit Diagnoses Not on filedocumented in this encounter Care Teams City Maintenance Manager Relationship Specialty Start Date End Date Grupo Garcia MD PCP - General Internal Medicine 08/14/10 2 documented as of this encounter
--- OUTSIDE RECORDS SUMMARY | 2024-05-26 13:17 | XMS_ITS | Encounter Summary ---
Author Organization [facility] Address [address] [place] [address] Care Team Providers Care Assisted Sales Representative Name Role Phone Grupo Garcia MD Primary Care Provider Unavailab le Encounter Details Date Type Department Care Team (Late Contact Info) Description 11/14/2014 Orders Only [facility] Admitting [address] [place] [address] [place] [address] [place] [address] Social History Tobacco Use Types Packs/Day Years [...] st Contact Info) Description 07/12/2024 2:30 PM BREWERY TECHNICIAN Office Visit [facility] Oncology and Hematology - [place] [address] [facility] [address] [place] [address] Ovidio Nolen MD [address] [facility] [address] [place] [address] documented as of this encounter Visit Diagnoses Not on filedocumented in this encounter Care Teams Assisted Sales Representative Relationship Specialty Start Date End Date Grupo Garcia MD PCP - General Internal Medicine 08/14/10 2 documented as of this encounter
--- OUTSIDE RECORDS SUMMARY | 2024-05-26 13:17 | XMS_ITS | Encounter Summary ---
Author Organization [facility] Address [address] [place] [address] Care Team Providers Care Core Carrier Name Role Phone Grupo Garcia MD Primary Care Provider Unavailab le Reason for Visit * Reason Onset Date Comments Information 09/13/2014 bs log Encounter Details Date Type Department Care Team (Late st Contact Info) Description 09/13/2014 Patient Outreach [facility] Endocrinology [address] [place] [address] Yuliya Ibarra MD [address] [place] [address] Information (bs log) Social History Tobacco Use Types [...] * Telephone Encounter - Kati Quintero - 09/13/2014 3:26 PM CDT reviewed BG logs and advised patient to keep insulin dose the same and have A!C prior to next appt. Patient informed and understands. documented in this encounter Plan of Treatment Upcoming Encounters Date Type Department Care Team (Late st Contact Info) Description 07/12/2024 2:30 PM SENIOR SCIENCE CONSULTANT Office Visit [facility] Oncology and Hematology - [place] [address] [facility] [address] [place] [address] Ovidio Nolen MD [address] [facility] [address] [place] [address] documented as of this encounter Visit Diagnoses Not on filedocumented in this encounter Care Teams Core Carrier Relationship Specialty Start Date End Date Grupo Garcia MD PCP - General Internal Medicine 08/14/10 06/22/15 documented as of this encounter
--- OUTSIDE RECORDS SUMMARY | 2024-05-26 13:17 | XMS_ITS | Encounter Summary ---
Author Organization [employer] Address [address] [place] [address] Care Team Providers Care Pile Driving Nozzleman Name Role Phone Grupo Garcia MD Primary Care Provider Unavailab le Reason for Visit * Outpatient Services (Routine) - Closed Specialty Diagnoses / Procedures Referred By Alejandrina vale Referred To Contact Laboratory Diagnoses LABS Procedures LAB Yuliya Ibarra MD [address] [place] [address] [facility] [place] [address], [place] [address] Referral ID Status Reason Start Date Expiration Date Visits Re quested Visits Authorized [id number] Closed 11/14/2014 12/15/2015 1 1 Encounter Details Date Type Department Care Team (Latest Contact Info) Description 11/14/2014 11:52 AM CDT - 11/14/2014 11:59 PM CDT Hospital Encounter [facility] Services [facility] [place] [facility] [address], [place] [address] Yuliya Ibarra MD [address] [place] [address] Discharge Disposition: Home or Self [...] LANCETS) 28 gauge 100 Each by [facility]Non-Drug; Combo Route) route daily. Dx code [...] surgery glimepiride (AMARYL) 1 mg tablet TAKE 1 [...] st Contact Info) Description 07/12/2024 2:30 PM SQUIRT MACHINE OPERATOR Office Visit [facility] Oncology and Hematology - [place] [address] [place] [address] Ovidio Nolen MD [facility] [address] [place] [address] documented as of this encounter Visit Diagnoses Not on filedocumented in this encounter Care Teams Pile Driving Nozzleman Relationship Specialty Start Date End Date Grupo Garcia MD PCP - General Internal Medicine 08/14/10 2 documented as of this encounter
--- OUTSIDE RECORDS SUMMARY | 2024-05-26 13:17 | XMS_ITS | Encounter Summary ---
Author Organization [facility] Address [address] [place] [address] Care Team Providers Care Stem Cleaning Machine Feeder Name Role Phone Grupo Garcia MD Primary Care Provider Unavailab le Reason for Visit * Reason Onset Date Comments Medication Review 03/31/2014 Encounter Details Date Type Department Care Team (Late st Contact Info) Description 03/31/2014 Telephone [facility] Endocrinology [address] [place] [address] Yuliya Ibarra MD [address] [place] [address] Medication Review Social History Tobacco Use Types Packs/Day Years [...] * Telephone Encounter - Sejal Huffman - 03/31/2014 3:40 PM CST Informed pt of note below glimiperide 1 mg 3x daily pending signature galo 11/17/13 cx 03/21/14 No v 05/02/14 TOR/QUALITY * Telephone Encounter - Yuliya Ibarra MD - 03/31/2014 3:33 PM CST Ok to change TOR/QUALITY * Telephone Encounter - Sjeal Huffman - 03/31/2014 2:57 PM CST Pt called and states she now should take glimepiride 1 mg 3x daily vs the 2x she was taking, is this ok to change on med list. She needs refill sent to [facility]. thanks TOR/QUALITY documented in this encounter Plan of Treatment Upcoming Encounters Date Type Department Care Team (Late st Contact Info) Description 07/12/2024 2:30 PM AUDITOR/QUALITY Office Visit [facility] Oncology and Hematology [facility] [address] [address] [place] [address] Ovidio Nolen MD [address] [facility] [address] [place] [address] documented as of this encounter Visit Diagnoses Not on filedocumented in this encounter Care Teams Stem Cleaning Machine Feeder Relationship Specialty Start Date End Date Grupo Garcia MD PCP - General Internal Medicine 08/14/10 06/22/15 documented as of this encounter
--- OUTSIDE RECORDS SUMMARY | 2024-05-26 13:17 | XMS_ITS | Encounter Summary ---
Author Organization [facility] Address [address] [place] [address] Care Team Providers Care Termite Exterminator Name Role Phone Grupo Garcia MD Primary Care Provider Unavailab le Encounter Details Date Type Department Care Team (Late Contact Info) Description 02/01/2015 Orders Only [facility] Endocrinology [address] [facility] [address] [facility] [address] Kelly Mchugh RN Social History [...] st Contact Info) Description 07/12/2024 2:30 PM CAMPUS SECURITY DIRECTOR Office Visit [facility] Oncology and Hematology - [place] [address] [facility] [address] [place] [address] Ovidio Nolen MD [address] [facility] [address] [place] [address] documented as of this encounter Visit Diagnoses Not on filedocumented in this encounter Care Teams Termite Exterminator Relationship Specialty Start Date End Date Grupo Garcia MD PCP - General Internal Medicine 08/14/10 06/22/15 documented as of this encounter
--- OUTSIDE RECORDS SUMMARY | 2024-05-26 13:17 | XMS_ITS | Encounter Summary ---
Author Organization [facility] Address [address] [place] [address] Care Team Providers Care Band Saw Operator Cake Cutting Name Role Phone Jarrell Garrison MD Primary Care Provider [phone] Reason for Visit * Reason Comments Medication Refill Encounter Details Date Type Department Care Team (Late st Contact Info) Description 09/16/2015 Refill [facility] Endocrinology [address] [facility] [address] [facility] [address] [place] [address] Yuliya Ibarra MD [address] [place] [address] Social History Tobacco Use Types [...] * Telephone Encounter - Kati Quintero - 09/18/2015 4:59 PM CDT Nov 09/22/15 galo 06/23/15 documented in this encounter Plan of Treatment Upcoming Encounters Date Type Department Care Team (Late st Contact Info) Description 07/12/2024 2:30 PM AIRCRAFT STRESS ANALYST Office Visit [facility] Oncology and Hematology - [place] [address] [facility] [address] [place] [address] Ovidio Nolen MD [address] [facility] [address] [place] [address] documented as of this encounter Visit Diagnoses Not on filedocumented in this encounter Care Teams Band Saw Operator Cake Cutting Relationship Specialty Start Date End Date Jarrell Garrison MD PCP - General Geriatric Medicine 06/21/16 08/13/18 documented as of this encounter
--- OUTSIDE RECORDS SUMMARY | 2024-05-26 13:17 | XMS_ITS | Encounter Summary ---
Author Organization [facility] Address [address] [place] [address] Care Team Providers Care Fence Manufacture Supervisor Name Role Phone Grupo Garcia MD Primary Care Provider Unavailab le Reason for Visit * Reason Onset Date Comments Diabetes 04/21/2014 Encounter Details Date Type Department Care Team (Late st Contact Info) Description 04/21/2014 Patient Outreach [facility] Endocrinology [address] [place] [address] Yuliya Ibarra MD [address] [place] [address] Diabetes Social History Tobacco Use [...] Telephone Encounter - Sejal Huffman - 04/21/2014 10:31 AM CST Pt informed of glympiride changes to 1.5 tab breakfast, 1 tab at lunch and dinner MATIC HEAD SAWYER documented in this encounter Plan of Treatment Upcoming Encounters Date Type Department Care Team (Late st Contact Info) Description 07/12/2024 2:30 PM AUTOMATIC HEAD SAWYER Office Visit [facility] Oncology and Hematology - [place] [address] [place] [address] Ovidio Nolen MD [address] [facility] [address] [place] [address] documented as of this encounter Visit Diagnoses Not on filedocumented in this encounter Care Teams Fence Manufacture Supervisor Relationship Specialty Start Date End Date Grupo Garcia MD PCP - General Internal Medicine 08/14/10 06/22/15 documented as of this encounter
--- OUTSIDE RECORDS SUMMARY | 2024-05-26 13:17 | XMS_ITS | Encounter Summary ---
Author Organization [facility] Address [address] [place] [address] Care Team Providers Care Network Operations Technician Name Role Phone Grupo Garcia MD Primary Care Provider Unavailab le Reason for Visit * Reason Onset Date Comments Information 09/01/2014 bs logs Encounter Details Date Type Department Care Team (Late st Contact Info) Description 09/01/2014 Patient Outreach [facility] Endocrinology [address] [place] [address] Yuliya Ibarra MD [address] [place] [address] Information (bs logs) Social History [...] * Telephone Encounter - Kati Quintero - 09/01/2014 1:20 PM CDT reviewed BG logs and advised patient to keep insulin dose the same and have A!C prior to next appt. Patient informed and understands. documented in this encounter Plan of Treatment Upcoming Encounters Date Type Department Care Team (Late st Contact Info) Description 07/12/2024 2:30 PM CREATIVE SERVICES MANAGER Office Visit [facility] Oncology and Hematology - [place] [address] [facility] [facility] [address] [place] [address] Ovidio Nolen MD [address] [facility] [address] [place] [address] documented as of this encounter Visit Diagnoses Not on filedocumented in this encounter Care Teams Network Operations Technician Relationship Specialty Start Date End Date Grupo Garcia MD PCP - General Internal Medicine 08/14/10 06/22/15 documented as of this encounter
--- OUTSIDE RECORDS SUMMARY | 2024-05-26 13:17 | XMS_ITS | Encounter Summary ---
Author Organization [facility] Address [address] [place] [address] Care Team Providers Care Special Investigation Unit Investigator Name Role Phone Grupo Garcia MD Primary Care Provider Unavailab le Reason for Visit * Reason Comments Medication Refill Encounter Details Date Type Department Care Team (Late st Contact Info) Description 06/05/[address] [facility] Endocrinology [address] [place] [address] Yuliya Ibarra MD [address] [place] [address] Social History Tobacco Use Types [...] * Telephone Encounter - Bekah Wang - 06/06/2015 11:20 AM CST galo 02/24/15 , cx 06/05/15 , nov 06/23/15 OR ACCOUNT EXECUTIVE documented in this encounter Plan of Treatment Upcoming Encounters Date Type Department Care Team (Late st Contact Info) Description 07/12/2024 2:30 PM SENIOR ACCOUNT EXECUTIVE Office Visit [facility] Oncology and Hematology - [place] [address] [place] [address] Ovidio Nolen MD [address] [facility] [address] [place] [address] documented as of this encounter Visit Diagnoses Not on filedocumented in this encounter Care Teams Special Investigation Unit Investigator Relationship Specialty Start Date End Date Grupo Garcia MD PCP - General Internal Medicine 08/14/10 2 documented as of this encounter
--- OUTSIDE RECORDS SUMMARY | 2024-05-26 13:18 | XMS_ITS | Encounter Summary ---
Author Organization [facility] Address [address] [place] [address] Care Team Providers Care Foundry Manager Name Role Phone Grupo Garcia MD Primary Care Provider Unavailab le Encounter Details Date Type Department Care Team (Late st Contact Info) Description 03/09/2014 Orders Only [facility] Endocrinology [address] [place] [address] Yuliya Ibarra MD [address] [place] [address] Type II or unspecified type diabetes mellitus without mention of complication, uncontrolled Social History Tobacco Use Types Packs/Day [...] st Contact Info) Description 07/12/2024 2:30 PM PANCAKE PROFESSIONAL Office Visit [facility] Oncology and Hematology - [place] [address] [facility] [address] [place] [address] Ovidio Nolen MD [address] [facility] [address] [place] [address] documented as of this encounter Visit Diagnoses Diagnosis Type II or unspecified type diabetes mellitus without mention of complication, uncontrolled documented in this encounter Care Teams Foundry Manager Relationship Specialty Start Date End Date Grupo Garcia MD PCP - General Internal Medicine 08/14/10 2 documented as of this encounter
--- OUTSIDE RECORDS SUMMARY | 2024-05-26 13:18 | XMS_ITS | Encounter Summary ---
Author Organization [facility] Address [address] [place] [address] Care Team Providers Care Clamp Remover Name Role Phone Grupo Garcia MD Primary Care Provider Unavailab le Reason for Visit * Reason Onset Date Comments Medication Refill 07/12/2013 Encounter Details Date Type Department Care Team (Late Contact Info) Description 07/12/2013 Refill [facility] Endocrinology [address] [place] [address] Yuliya Ibarra MD [address] [place] [address] Social History Tobacco Use Types [...] Contact Info) Description 07/12/2024 2:30 PM DISASTER DIRECTOR Office Visit [facility] Oncology and Hematology - [place] [address] [place] [address] Ovidio Nolen MD [address] [facility] [address] [place] [address] documented as of this encounter Visit Diagnoses Not on filedocumented in this encounter Care Teams Clamp Remover Relationship Specialty Start Date End Date Grupo Garcia MD PCP - General Internal Medicine 08/14/10 2 documented as of this encounter
--- OUTSIDE RECORDS SUMMARY | 2024-05-26 13:18 | XMS_ITS | Encounter Summary ---
Author Organization [facility] Address [address] [place] [address] Care Team Providers Care Television Repair Teacher Name Role Phone Grupo Garcia MD Primary Care Provider Unavailab le Encounter Details Date Type Department Care Team (Late Contact Info) Description 05/26/2013 Abstract [facility] Endocrinology [address] [place] [address] Yuliya Ibarra MD [address] [place] [address] Social History Tobacco Use Types [...] (Late Contact Info) Description 07/12/2024 2:30 PM OPTICAL GLASS INSPECTOR Office Visit [facility] Oncology and Hematology - [place] [address] [facility] [address] [place] [address] Oivdio Nolen MD [address] [facility] [address] [place] [address] documented as of this encounter Visit Diagnoses Not on filedocumented in this encounter Care Teams Television Repair Teacher Relationship Specialty Start Date End Date Grupo Garcia MD PCP - General Internal Medicine 08/14/10 2 documented as of this encounter
--- OUTSIDE RECORDS SUMMARY | 2024-05-26 13:18 | XMS_ITS | Encounter Summary ---
Author Organization [facility] Address [address] [place] [address] Care Team Providers Care Clark Driver Name Role Phone Grupo Garcia MD Primary Care Provider Unavailab le Reason for Visit * Reason Onset Date Comments Medication Refill 07/13/2013 Encounter Details Date Type Department Care Team (Late st Contact Info) Description 07/13/2013 Refill [facility] Endocrinology [address] [place] [address] Yuliya Ibarra MD [address] [place] [address] Social History Tobacco Use Types [...] * Telephone Encounter - Sejal Huffman - 07/13/2013 2:54 PM CST galo 04/28/13, nov 07/30/13 RNET SALES REPRESENTATIVE documented in this encounter Plan of Treatment Upcoming Encounters Date Type Department Care Team (Late st Contact Info) Description 07/12/2024 2:30 PM INTERNET SALES REPRESENTATIVE Office Visit [facility] Oncology and Hematology - [place] [address] [place] [address] Ovidio Nolen MD [address] [facility] [address] [place] [address] documented as of this encounter Visit Diagnoses Not on filedocumented in this encounter Care Teams Clark Driver Relationship Specialty Start Date End Date Grupo Garcia MD PCP - General Internal Medicine 08/14/10 06/22/15 documented as of this encounter
--- OUTSIDE RECORDS SUMMARY | 2024-05-26 13:18 | XMS_ITS | Encounter Summary ---
Author Organization [facility] Address [address] [place] [address] Care Team Providers Care Power Plant Operator Name Role Phone Grupo Garcia MD Primary Care Provider Unavailab le Reason for Visit * Reason Onset Date Comments Medication Review 01/27/2014 b/s log Encounter Details Date Type Department Care Team (Late st Contact Info) Description 01/27/2014 Telephone [facility] Endocrinology [address] [place] [address] Yuliya Ibarra MD [address] [place] [address] Medication Review (b/s log) Social History Tobacco Use Types Packs/Day [...] * Telephone Encounter - Bekah Wang - 01/27/2014 11:46 AM CDT reviewed Pt b/s log / scanned No changes made Left mssg pt documented in this encounter Plan of Treatment Upcoming Encounters Date Type Department Care Team (Late st Contact Info) Description 07/12/2024 2:30 PM MOLECULAR GENETICIST Office Visit [facility] Oncology and Hematology - [place] [address] [place] [address] Ovidio Nolen MD [address] [facility] [address] [place] [address] documented as of this encounter Visit Diagnoses Not on filedocumented in this encounter Care Teams Power Plant Operator Relationship Specialty Start Date End Date Grupo Garcia MD PCP - General Internal Medicine 08/14/10 06/22/15 documented as of this encounter
--- OUTSIDE RECORDS SUMMARY | 2024-05-26 13:18 | XMS_ITS | Encounter Summary ---
Author Organization [facility] Address [address] [place] [address] Care Team Providers Care Refinery Superintendent Name Role Phone Grupo Garcia MD Primary Care Provider Unavailab le Reason for Visit * Reason Comments Medication Refill Encounter Details Date Type Department Care Team (Late st Contact Info) Description 11/24/2013 Refill [facility] Endocrinology [address] [place] [address] Yuliya Ibarra MD [address] [place] [address] Social History Tobacco Use Types [...] (Late Contact Info) Description 07/12/2024 2:30 PM LABOR SERVICE REPRESENTATIVE Office Visit [facility] Oncology and Hematology - [place] [address] [facility] [address] [place] [address] Ovidio Nolen MD [address] [facility] [address] [place] [address] documented as of this encounter Visit Diagnoses Not on filedocumented in this encounter Care Teams Refinery Superintendent Relationship Specialty Start Date End Date Grupo Garcia MD PCP - General Internal Medicine 08/14/10 2 documented as of this encounter
--- OUTSIDE RECORDS SUMMARY | 2024-05-26 13:18 | XMS_ITS | Encounter Summary ---
Author Organization [facility] Address [address] [place] [address] Care Team Providers Care Chemical Process Analyst Name Role Phone Grupo Garcia MD Primary Care Provider Unavailab le Encounter Details Date Type Department Care Team (Late Contact Info) Description 08/18/2013 Abstract [facility] Endocrinology [address] [place] [address] Yuliya Ibarra MD [address] [place] [address] Social History Tobacco Use Types [...] Contact Info) Description 07/12/2024 2:30 PM TECHNOLOGY LAB TEACHER Office Visit [facility] Oncology and Hematology - [place] [address] [facility] [address] [place] [address] Ovidio Nolen MD [address] [facility] [address] [place] [address] documented as of this encounter Visit Diagnoses Not on filedocumented in this encounter Care Teams Chemical Process Analyst Relationship Specialty Start Date End Date Grupo Garcia MD PCP - General Internal Medicine 08/14/10 2 documented as of this encounter
--- OUTSIDE RECORDS SUMMARY | 2024-05-26 13:18 | XMS_ITS | Encounter Summary ---
Author Organization [facility] Address [address] [place] [address] Care Team Providers Care Greensman Name Role Phone Grupo Garcia MD Primary Care Provider Unavailab le Encounter Details Date Type Department Care Team (Late st Contact Info) Description 06/10/2013 Orders Only [facility] Endocrinology [address] [place] [address] Yuliya Ibarra MD [address] [place] [address] Serum calcium elevated Social History Tobacco Use [...] st Contact Info) Description 07/12/2024 2:30 PM COAT FELLER Office Visit [facility] Oncology and Hematology - [place] [address] [facility] [address] [place] [address] Ovidio Nolen MD [address] [facility] [address] [place] [address] documented as of this encounter Procedures Procedure Name Priority Date/Time Associated Diagnosis Comments BASIC METABOLIC PANEL Routine 06/08/2013 Serum calcium elevated documented in this encounter Results * BASIC METABOLIC PANEL (06/08/2013) Blood specimen (specimen) Yuliya Ibarra MD CHEMISTRY ORDERABLES Performing Organization Address City/[facility] Co de Phone Number [facility] LABORATORY SERVICES [facility]# [id number] [address] [place] [address] documented in this encounter Visit Diagnoses Diagnosis Serum calcium elevated Hypercalcemia documented in this encounter Care Teams Greensman Relationship Specialty Start Date End Date Grupo Garcia MD PCP - General Internal Medicine 08/14/10 2 documented as of this encounter
--- OUTSIDE RECORDS SUMMARY | 2024-05-26 13:18 | XMS_ITS | Encounter Summary ---
Author Organization [facility] Address [address] [place] [address] Care Team Providers Care Morning Nanny Name Role Phone Grupo Garcia MD Primary Care Provider Unavailab le Encounter Details Date Type Department Care Team (Late Contact Info) Description 11/24/2013 Abstract [facility] Endocrinology [address] [place] [address] Yuliya Ibarra MD [address] [place] [address] Social History Tobacco Use Types [...] (Late Contact Info) Description 07/12/2024 2:30 PM LEARNING SERVICES COORDINATOR Office Visit [facility] Oncology and Hematology - [place] [address] [facility] [address] [place] [address] Ovidio Nolen MD [address] [facility] [address] [place] [address] documented as of this encounter Visit Diagnoses Not on filedocumented in this encounter Care Teams Morning Nanny Relationship Specialty Start Date End Date Grupo Garcia MD PCP - General Internal Medicine 08/14/10 2 documented as of this encounter
--- OUTSIDE RECORDS SUMMARY | 2024-05-26 13:18 | XMS_ITS | Encounter Summary ---
Author Organization [facility] Address [address] [place] [address] Care Team Providers Care Shipping Receiving Manager Name Role Phone Grupo Garcia MD Primary Care Provider Unavailab le Encounter Details Date Type Department Care Team (Late Contact Info) Description 06/14/2013 Abstract [facility] Endocrinology [address] [place] [address] Yuliya Ibarra MD [address] [place] [address] Social History Tobacco Use Types [...] (Late Contact Info) Description 07/12/2024 2:30 PM CHANNEL MANAGER Office Visit [facility] Oncology and Hematology - [place] [address] [facility] [address] [place] [address] Ovidio Nolen MD [address] [facility] [address] [place] [address] documented as of this encounter Visit Diagnoses Not on filedocumented in this encounter Care Teams Shipping Receiving Manager Relationship Specialty Start Date End Date Grupo Garcia MD PCP - General Internal Medicine 08/14/10 2 documented as of this encounter
--- OUTSIDE RECORDS SUMMARY | 2024-05-26 13:18 | XMS_ITS | Encounter Summary ---
Author Organization [facility] Address [address] [place] [address] Care Team Providers Care Nail Technician Name Role Phone Grupo Garcia MD Primary Care Provider Unavailab le Reason for Visit * Reason Onset Date Comments Other 11/22/2013 lab Encounter Details Date Type Department Care Team (Late st Contact Info) Description 11/22/2013 Telephone [facility] Endocrinology [address] [place] [address] Yuliya Ibarra MD [address] [place] [address] Other (lab) Social History Tobacco Use Types Packs/Day Years [...] * Telephone Encounter - Sejal Huffman - 11/22/2013 1:35 PM CDT Notified lab Orders pending signature * Telephone Encounter - Yuliya Ibarra MD - 11/22/2013 1:19 PM CDT Needs to do whenever she can * Telephone Encounter - ArmidaSejal Maria E - 11/22/2013 1:14 PM CDT Lab called and they cancelled the microalbumin creatinine random urine by lab because patient neverbrought back urine specimen. Do you want it redone or wait until her March appt? thanks documented in this encounter Plan of Treatment Upcoming Encounters Date Type Department Care Team (Late st Contact Info) Description 07/12/2024 2:30 PM REPAIR MECHANIC Office Visit [facility] Oncology and Hematology - [place] [address] [place] [address] [address] [place] [address] Ovidio Nolen MD [address] [facility] [address] [place] [address] documented as of this encounter Visit Diagnoses Diagnosis Diabetes mellitus type II, uncontrolled- Primary Type II or unspecified type diabetes mellitus without mention of complication, uncontrolled documented in this encounter Care Teams Nail Technician Relationship Specialty Start Date End Date Grupo Garcia MD PCP - General Internal Medicine 08/14/10 2 documented as of this encounter
--- OUTSIDE RECORDS SUMMARY | 2024-05-26 13:18 | XMS_ITS | Encounter Summary ---
Author Organization [facility] Address [address] [place] [address] Care Team Providers Care Peoplesoft Analyst Name Role Phone Grupo Garcia MD Primary Care Provider Unavailab le Encounter Details Date Type Department Care Team (Late st Contact Info) Description 08/11/2013 Orders Only [facility] Endocrinology [address] [place] [address] Yuliya Ibarra MD [address] [place] [address] Type II or unspecified type [...] Contact Info) Description 07/12/2024 2:30 PM ANTIQUE AUTO MUSEUM MAINTENANCE WORKER Office Visit [facility] Oncology and Hematology - [place] [address] [facility] [address] [place] [address] Ovidio Nolen MD [address] [facility] [address] [place] [address] documented as of this encounter Procedures Procedure Name Priority Date/Time Associated Diagnosis Comments HEMOGLOBIN A1C Routine 08/09/2013 Type II or unspecified type diabetes mellitus without mention of complication, uncontrolled LIPID PANEL Routine 08/09/2013 Type II or unspecified type diabetes mellitus without mention of complication, uncontrolled documented in this encounter Results * LIPID PANEL (08/09/2013) Blood specimen (specimen) Yuliya Ibarra MD CHEMISTRY ORDERABLES Performing Organization Address [facility] Co de Phone Number [facility] [id number] [address] [place] [address] * HEMOGLOBIN A1C (08/09/2013) Blood specimen (specimen) Yuliya Ibarra MD CHEMISTRY ORDERABLES Performing Organization Address [facility] Co de Phone Number [facility]# [id number] [address] [place] [address] documented in this encounter Visit Diagnoses Diagnosis Type II or unspecified type diabetes mellitus without mention of complication, uncontrolled documented in this encounter Care Teams Peoplesoft Analyst Relationship Specialty Start Date End Date Grupo Garcia MD PCP - General Internal Medicine 08/14/10 06/22/15 documented as of this encounter
--- OUTSIDE RECORDS SUMMARY | 2024-05-26 13:18 | XMS_ITS | Encounter Summary ---
Author Organization [facility] Address [address] [place] [address] Care Team Providers Care Supervisor Joiners Name Role Phone Grupo Gacria MD Primary Care Provider Unavailab le Encounter Details Date Type Department Care Team (Late Contact Info) Description 09/07/2013 Abstract [facility] Endocrinology [address] [place] [address] Yuliya Ibarra MD [address] [place] [address] Social History Tobacco Use Types [...] (Late Contact Info) Description 07/12/2024 2:30 PM MOLDER PIPE COVERING Office Visit [facility] Oncology and Hematology - [place] [address] [facility] [address] [place] [address] Ovidio Nolen MD [address] [facility] [address] [place] [address] documented as of this encounter Visit Diagnoses Not on filedocumented in this encounter Care Teams Supervisor Joiners Relationship Specialty Start Date End Date Grupo Garcia MD PCP - General Internal Medicine 08/14/10 2 documented as of this encounter
--- OUTSIDE RECORDS SUMMARY | 2024-05-26 13:18 | XMS_ITS | Encounter Summary ---
Author Organization [facility] Address [address] [place] [address] Care Team Providers Care Whale Trainer Name Role Phone Grupo Garcia MD Primary Care Provider Unavailab le Reason for Referral * Outpatient Services (Routine) - Closed Specialty Diagnoses / Procedures Referred By Alejandrina vale Referred To Contact Ultrasound Diagnoses Multiple thyroid nodules Procedures US HEAD NECK TISSUES Yuliya Ibarra MD [address] [place] [address] Referral ID Status Reason Start Date Expiration Date V isits Requested Visits Authorized [id number] Closed [facility] CTS 07/30/2013 08/30/2014 1 1 Reason for Visit * Reason Comments Thyroid Problem Diabetes Encounter Details Date Type Department Care Team (Late st Contact Info) Description 07/30/2013 10:00 AM CDT Office Visit [facility] Endocrinology [address] [place] [address] Yuliya Ibarra MD [address] [place] [address] Type II or unspecified type diabetes mellitus without mention of complication, uncontrolled (Primary Dx); Hypercalcemia; Multiple thyroid nodules; Diabetes mellitus type II, uncontrolled Social History [...] Sign Reading Time Taken Comments Blood Pressure 128/80 07/30/2013 9:58 AM CDT Pulse 80 07/30/2013 9:58 AM CDT Temperature - - Respiratory Rate - - Oxygen Saturation - - Inhaled Oxygen Concentration - - Weight 88.9 kg (196 lb) 07/30/2013 9:58 AM CDT Height 165.1 cm (5' 5 ) 07/30/2013 9:58 AM CDT Body Mass Index 32.62 07/30/2013 9:58 AM CDT documented in this encounter Progress Notes * Kelly Mchugh RN - 07/30/2013 10:49 AM CDT Diabetes Follow Up Discussed diet rational. Goal consistent carb intake and healthy food choices. Discussed cho counting and label reading. Simple meal plan given as well as cho booklet and fast food daniel. Breakfast and Lunch 30 g carb and 60 g Dinner Bg targets discussed Pt to check BG 1 x/day To call with question / problems. * Yuliya Ibarra MD - 07/30/2013 10:02 AM CDT [facility] Endocrinology Yuliya Ibarra M.D. PCP: Grupo Ray MD Reason for visit: DM follow-up. Subjective: PCP: Dr. Grupo Garcia Agricultural Real Estate Agent: Dr. Alexandre Reese Neurologist: Dr. Nelson Ross Peer Educator: Dr. Krishan Moran Vascular Surgeon: Dr. Elle Landaverde Vp Sales: Dr. Laz Valencia Patient Account Liaison: Dr. Phuong Callejas. Perla Leon is a 72 y.o. female with multiple medical problems, who presents to clinic for thyroid nodule follow-up, as well as diabetes and hypercalcemia. Patient was diagnosed with multiple thyroid nodules via ultrasound. Her nodules were small enough to monitor. Repeat ultrasound is planned for 10/2013. Patient denies changes in her neck size, dysphagia, voice changes, exposure to radiation treatments. Patient was diagnosed with DM over a year ago. Current medications for diabetes: glimepiride 1 mg bid. Started taking Metformin about 4 months ago, could not tolerate secondary to diarrhea, stomach problems. Patient was on steroids back in 01/2013 for pneumonia, sugars never decreased once off steroids. Checks her blood sugars once a day - in am, around 200's. She has seen a teaseler at [facility]. Patient was found to have hypercalcemia via her last blood work in March/2013. She denies havingproblems with high calcium in the past, denies nephrolithiasis, admits to memory issues. States her demyelinating disease seem to be getting worse, seeing her Neurologist soon. Review of Systems: Endo/Gen: Her weight has been stable. She: denies polyuria/polydipsia/nocturia. Her most recent eye exam was last week, sees him again in 3-4 weeks, has glaucoma, trying a different medication for it, may need to have laser surgery. She has had hypoglycemia recently. She does not note any foot complaints. Checks feet regularly; denies sores on feet Gen: denies f/chills/heat/cold intolerance Eye/vision: denies double vision, pain, visual field cuts ENT: denies dysphagia/disphonia Resp: denies shortness of breath, cough CV: denies chest pain/palpitations/CHARLES GI: denies abdominal pain, diarrhea, constipation, nausea/vomiting : denies dysuria, nocturia, incontinence ENDO:see above Neuro: denies seizures, tremors, admits to weakness, problems with balance. Psych: denies memory/orientation/mood problems Extr: denies swelling, decreased ROM All other review of systems negative Medications: Current Outpatient Prescriptions Medication Sig Dispense Refill ??? bimatoprost (LUMIGAN) 0.01 % solution 1 Drop daily at bedtime. ??? HYPROMELLOSE (SYSTANE GEL OP) by Ophthalmic route. PRN ??? lancets (FREESTYLE LANCETS) 28 gauge 100 Each by [facility]Non-Drug; Combo Route) route daily. Dx code 250.02 100 Each 6 ??? FREESTYLE LITE STRIPS Strip Check once a day alternating before breakfast or before dinner 100 Strip 1 ??? glimepiride (AMARYL) 1 mg tablet Take 1 Tab by mouth 2 times daily with meals. 60 Tab 2 ??? IPRATROPIUM BROMIDE INHALATION Take by inhalation [...] Use: No ??? Drug Use: No ??? Sexually Active: Comment: hyst Other Topics Concern ??? Not on file Social History Narrative ??? No narrative on file Family medical history: Family History Problem Relation Age of Onset ??? Breast Cancer Mother ??? Hypertension Brother ??? High Cholesterol Brother Medical History: Past Medical History Diagnosis Date ??? Pneumonia just recovering ??? Seizure disorder 2001 after stroke-none since ??? CVD (cerebrovascular disease) [phone] TIA x2 ??? Duodenal ulcer 1978 ??? Shingles [phone] x3 ??? Glaucoma ??? Heart murmur ??? [...] vocal cord ??? Hx hernia repair 2009-[facility] ??? Hx knee arthroscopy [phone] right knee ??? Hx heart catheterization 2002 dr. Valencia ??? Hx surgical other 1985 surgery for broken nose ??? Pr repr vaginal prolapse,sacrosp lig 09/10/2010 SACROSPINOUS LIGAMENT FIXATION performed by FRANKLYN PACK at [facility] ??? Pr anter colporrhaphy,blad/vagina 09/10/2010 CYSTOCELE REPAIR performed by FRANKLYN PACK at [facility] ??? Hx surgical other 09/10/2010 ANTERIOR POSTERIOR REPAIR performed by FRANKLYN PACK at [facility] ??? Pr repair of perineum,non obstetrical 09/10/2010 PERINEOPLASTY performed by FRANKLYN PACK at [facility] ??? Pr post colporrhaphy,rectum/vagina 09/10/2010 RECTOCELE REPAIR performed by FRANKLYN PACK at [facility] ??? Pr repair enterocele,vag apprch 09/10/2010 ENTEROCELE REPAIR VAGINAL APPROACH performed by FRANKLYN PACK at [facility] Physical Findings: No results found for this visit on 07/30/13. Wt Readings from Last 3 Encounters: 07/30/13 196 lb (88.905 kg) 04/28/13 200 lb (90.719 kg) 11/04/12 202 lb (91.627 kg) BP 128/80 Pulse 80 Ht 5' 5 (1.651 m) Wt 196 lb (88.905 kg) BMI 32.62 kg/m2 Physical Exam: General appearance: alert, well [...] organomegaly Exam of extremities:peripheral pulses normal, no pedal edema, no clubbing or cyanosis Neuro: No tremor, reflexes were 2+ with a normal return phase. Lab: 07/21/13 Calcium 11.0 K 3.7, Na 142 05/2013 Calcium 9.7 Component Latest Ref Rng 04/28/2013 04/28/2013 04/28/2013 3:24 PM 3:24 PM 3:24 PM CALCIUM 8.6 - 10.2 mg/dL 11.5 (H) PTH INTACT 15 - 65 pg/mL 75 (H) VITAMIN D, 25 OH, TOTAL 22 CALCIUM IONIZED 4.76 - 5.16 mg/dL 5.53 (H) 04/08/13 Bun /creatinine - 23/0.88 Transaminases - wnl Calcium 11.1 GFR - 63 HgA1C - 8.8% Total cholesterol - 123 Triglycerides - 288 HDL - 34 LDL 31 Lab Results Component Value Date/Time SODIUM 140 04/28/2013 3:24 PM SODIUM 142 08/22/2010 1:45 PM POTASSIUM 3.9 04/28/2013 3:24 PM POTASSIUM 3.5 08/22/2010 1:45 PM CHLORIDE 101 04/28/2013 3:24 PM CHLORIDE 106 08/22/2010 1:45 PM CO2 27 04/28/2013 3:24 PM CO2 28 08/22/2010 1:45 PM BUN 20 04/28/2013 3:24 PM BUN 18 08/22/2010 1:45 PM GLUCOSE 231* 04/28/2013 3:24 PM GLUCOSE 136* 08/22/2010 1:45 PM Lab Results Component Value Date/Time CREATININE 0.84 04/28/2013 3:24 PM CREATININE 0.76 08/22/2010 1:45 PM Lab Results Component Value Date/Time TSH 5.22* 04/28/2013 3:24 PM Lab Results Component Value Date/Time VITAMIN D, 25 OH, TOTAL 22 04/28/2013 3:24 PM DEXA 04/2013 FINDINGS: Lumbar Spine ( L1-L2 ) Bone Mineral Density = 1.008 gm/cm2 Compared to young adult (T-score), difference of -1.3 Standard Deviations. The patient's spine BMD is osteopenic when compared to that of a young adult. Left Femoral Neck Bone Mineral Density = 0.944 gm/cm2 Compared to young adult (T-score), difference of -0.7 Standard Deviations. The patient's left femoral neck BMD is normal when compared to that of a young adult. Right Femoral Neck Bone Mineral Density = 1.007 gm/cm2 Compared to young adult (T-score), difference of -0.2 Standard Deviations. The patient's right femoral neck BMD is normal when compared to that of a young adult. Left Radius 33% Bone Mineral Density = 0.853 gm/cm2 Compared to young adult (T-score), difference of -0.3 Standard Deviations. Assessment/Plan: 1. Type II Diabetes Mellitus controlled: discussed the risk factors associated with diabetes. have encouraged diet and exercise as tolerated with her. discussed current medications and have asked that she adjust her medications to include the following: continue current medications. Needs to have consistent carb intake. Patient has seen [place] for a dietary consult during this visit. Laboratory orders HgA1C, lipid panel Patient was asked to monitor fasting blood sugars and write down how much diabetic meds taken/accucheck time/special circumstances and send me her numbers every 2 weeks. 2. Hypercalcemia - discussed with patient again. Will continue to monitor. Recheck intact PTH, ionized calcium, BMP before next visit again. Reviewed patient's 24 hour calcium levels, which were not elevated. Reviewed her DEXA scan. Discussed risks of hypercalcemia: including but not limited to renal stones, constipation, confusion, memory problems. Needs to go to ER if increased confusion, dehydration, nausea, vomiting etc Discussed most likely cause of hypercalcemia, which is primary hyperparathyroidism. HCTZ contributes to hypercalcemia. 3. Thyroid nodules - plan on repeating thyroid ultrasound in 10/2013. Patient is to call if experiences increase [...] any time. Sincerely, Yuliya Ibarra MD * Lyssa Khan - 07/30/2013 9:53 AM CDT Pt here for Thyroid and D/M F/U. Recent labs. See lab tab for results. B/G-133 documented in this encounter Plan of Treatment Upcoming Encounters Date Type Department Care Team (Late st Contact Info) Description 07/12/2024 2:30 PM SURVEILLANCE SYSTEM MONITOR Office Visit [facility] Oncology and Hematology - [place] [address] [place] [address] [facility] [address] [place] [address] Ovidio Nolen MD [address] [facility] [address] [place] [address] Scheduled Orders Name Type Priority Associated Diagnoses Orde r Schedule HEMOGLOBIN A1C Lab Routine Type II or unspecified type diabetes mellitus without mention of complication, uncontrolled Expected: 10/30/2013, Expires: 07/30/2014 documented as of this encounter Results * US HEAD NECK TISSUES (11/03/2013 9:12 AM CDT) Anatomical Region Laterality Modality Head Ultrasound 11/03/2013 8:58 AM CDT Impressions 11/03/2013 2:30 PM CDT IMPRESSION: 1. Small cystic nodules bilaterally. 2. No evidence for significant thyroid mass at this time. Dictated from [facility] Narrative 11/03/2013 2:30 PM CDT THYROID ULTRASOUND DATE: 11/03/2013 CLINICAL HISTORY: Evaluation of thyroid nodules. FINDINGS: Sagittal and transverse real-time examination reveals [...] clinically significant. No perithyroid adenopathy is demonstrated. Procedure Note Adan Rodriguez MD - 11/03/2013 THYROID ULTRASOUND DATE: 11/03/2013 CLINICAL HISTORY: Evaluation of thyroid nodules. FINDINGS: Sagittal and transverse real-time examination reveals [...] for significant thyroid mass at this time. Dictated from [facility] Yuliya Ibarra MD US ORDERABLES * LIPID PANEL (08/09/2013) Blood specimen (specimen) Yuliya Ibarra MD CHEMISTRY ORDERABLES Performing Organization Address [facility] Co de Phone Number [facility] CLIA# [id number] [address] [place] [address] * HEMOGLOBIN A1C (08/09/2013) Blood specimen (specimen) Yuliya Ibarra MD CHEMISTRY ORDERABLES Performing Organization Address [facility] Co de Phone Number [facility]# [id number] [address] [place] [address] * BASIC METABOLIC PANEL (07/21/2013) Blood specimen (specimen) Yuliya Ibarra MD CHEMISTRY ORDERABLES Performing Organization Address [facility] Co de Phone Number [employer]# [id number] [address] [place], [place] [address] documented in this encounter Visit Diagnoses Diagnosis Type II or unspecified type diabetes mellitus without mention of complication, uncontrolled- Primary Hypercalcemia Multiple thyroid nodules Nontoxic multinodular goiter Diabetes mellitus type II, uncontrolled Type II or unspecified type diabetes mellitus without mention of complication, uncontrolled Multiple thyroid nodules Nontoxic multinodular goiter documented in this encounter Care Teams Whale Trainer Relationship Specialty Start Date End Date Grupo Garcia MD PCP - General Internal Medicine 08/14/10 06/22/15 documented as of this encounter
--- OUTSIDE RECORDS SUMMARY | 2024-05-26 13:18 | XMS_ITS | Encounter Summary ---
Author Organization [facility] Address [address] [place] [address] Care Team Providers Care Land Development Project Manager Name Role Phone Grupo Garcia MD Primary Care Provider Unavailab le Reason for Visit * Reason Onset Date Comments Medication Refill 03/03/2014 Encounter Details Date Type Department Care Team (Late st Contact Info) Description 03/03/2014 Refill [facility] Endocrinology [address] [place] [address] Yuliya Ibarra MD [address] [place] [address] Social History Tobacco Use Types [...] * Telephone Encounter - Kati Quintero - 03/03/2014 2:08 PM CDT Pt called and wants rx for her test strips to indicated that she checks 2 times a day so she doesn't run out. documented in this encounter Plan of Treatment Upcoming Encounters Date Type Department Care Team (Late st Contact Info) Description 07/12/2024 2:30 PM MARKETING DATABASE ANALYST Office Visit [facility] Oncology and Hematology - [place] [address] [place] [address] Ovidio Nolen MD [address] [facility] [address] [place] [address] documented as of this encounter Visit Diagnoses Not on filedocumented in this encounter Care Teams Land Development Project Manager Relationship Specialty Start Date End Date Grupo Garcia MD PCP - General Internal Medicine 08/14/10 06/22/15 documented as of this encounter
--- OUTSIDE RECORDS SUMMARY | 2024-05-26 13:18 | XMS_ITS | Encounter Summary ---
Author Organization [facility] Address [address] [place] [address] Care Team Providers Care Theology Teacher Name Role Phone Grupo Garcia MD Primary Care Provider Unavailab le Encounter Details Date Type Department Care Team (Late Contact Info) Description 01/04/2014 Abstract [facility] Endocrinology [address] [place] [address] Yuliya Ibarra MD [address] [place] [address] Social History Tobacco Use Types [...] (Late Contact Info) Description 07/12/2024 2:30 PM EXTENSION SERVICE SUPERVISOR Office Visit [facility] Oncology and Hematology - [place] [address] [facility] [address] [place] [address] Ovidio Nolen MD [address] [facility] [address] [place] [address] documented as of this encounter Visit Diagnoses Not on filedocumented in this encounter Care Teams Theology Teacher Relationship Specialty Start Date End Date Grupo Garcia MD PCP - General Internal Medicine 08/14/10 2 documented as of this encounter
--- OUTSIDE RECORDS SUMMARY | 2024-05-26 13:18 | XMS_ITS | Encounter Summary ---
Author Organization [facility] Address [address] [place] [address] Care Team Providers Care Protective Services Officer Name Role Phone Grupo Garcia MD Primary Care Provider Unavailab le Reason for Visit * Reason Onset Date Comments Diabetes 07/28/2013 low bg Encounter Details Date Type Department Care Team (Late st Contact Info) Description 07/28/2013 Telephone [facility] Endocrinology [address] [place] [address] Kelly Mchugh RN Diabetes (low bg ) Social History Tobacco Use Types Packs/Day Years Used Date Smoking Tobacco: Never Alcohol Use Standard Drinks/Week Comments No 0 (1 standard drink = 0.6 oz pur e alcohol) Sex and Gender Information Value Date Recorded Sex Assigned at Not on file Gender Identity Not on file Sexual Orientation Not on file documented as of this encounter Miscellaneous Notes * Telephone Encounter - Yuliya Ibarra MD - 07/28/2013 2:26 PM CDT Reviewed. Will discuss during her upcoming appointment. * Telephone Encounter - Kelly Mchugh RN - 07/28/2013 2:21 PM CDT Bg up to 85 now * Telephone Encounter - Kelly Mchugh, RN - 07/28/2013 2:10 PM CDT Pt called said Dr. Ibarra told her to call if she had any bg <70 She went out for lunch today -ate no carbs meat mixed veggies, cottage cheese Bg 60 Ate 1 glucose tab Told to eat 3 more , then told her to eat the yogurt in her refrig to make the 30 g of carb she didnt eat at lunch and recheck bg in 15 min , if still low to eat another carb 15 g and call back Someone is home with her so she is not alone Reviewed carbs but probably needs another review at next ov documented in this encounter Plan of Treatment Upcoming Encounters Date Type Department Care Team (Late st Contact Info) Description 07/12/2024 2:30 PM EXPLOSIVE MAN Office Visit [facility] Oncology and Hematology - [place] [address] [place] [address] [facility] [address] [place] [address] Ovidio Nolen MD [address] [place] [address] documented as of this encounter Visit Diagnoses Not on filedocumented in this encounter Care Teams Protective Services Officer Relationship Specialty Start Date End Date Grupo Garcia MD PCP - General Internal Medicine 08/14/10 06/22/15 documented as of this encounter
--- OUTSIDE RECORDS SUMMARY | 2024-05-26 13:18 | XMS_ITS | Encounter Summary ---
Author Organization [facility] Address [address] [place] [address] Care Team Providers Care Warehouse Shipping Receiving Clerk Name Role Phone Grupo Garcia MD Primary Care Provider Unavailab le Encounter Details Date Type Department Care Team (Late st Contact Info) Description 05/28/2013 Orders Only [facility] Endocrinology [address] [place] [address] Yuliya Ibarra MD [address] [place] [address] Serum calcium elevated Social History [...] st Contact Info) Description 07/12/2024 2:30 PM GROUND WATER CONTRACTOR Office Visit [facility] Oncology and Hematology - [place] [address] [facility] [address] [place] [address] Ovidio Nolen MD [address] [facility] [address] [place] [address] documented as of this encounter Procedures Procedure Name Priority Date/Time Associated Diagnosis Comments CALCIUM LEVEL, 24 HR URINE Routine 05/18/2013 Serum calcium elevated CREATININE, 24 HR URINE Routine 05/18/2012 Serum calcium elevated documented in this encounter Results * CALCIUM LEVEL, 24 HR URINE (05/18/2013) 24 hour urine specimen (specimen) Yuliya Ibarra MD URINE ORDERABLES Performing Organization Address [facility] de Phone Number [facility]# [id number] [address] [place] [address] * CREATININE, 24 HR URINE (05/18/2012) 24 hour urine specimen (specimen) Yuliya Ibarra MD URINE ORDERABLES Performing Organization Address [facility] Phone Number [facility]# [id number] [address] [place] [address] documented in this encounter Visit Diagnoses Diagnosis Serum calcium elevated Hypercalcemia documented in this encounter Care Teams Warehouse Shipping Receiving Clerk Relationship Specialty Start Date End Date Grupo Garcia MD PCP - General Internal Medicine 08/14/10 06/22/15 documented as of this encounter
--- OUTSIDE RECORDS SUMMARY | 2024-05-26 13:18 | XMS_ITS | Encounter Summary ---
Author Organization [facility] Address [address] [place] [address] Care Team Providers Care Shipyard Helper Name Role Phone Grupo Garcia MD Primary Care Provider Unavailab le Reason for Visit * Reason Onset Date Comments Results 11/22/2013 Encounter Details Date Type Department Care Team (Late st Contact Info) Description 11/22/2013 Telephone [facility] Endocrinology [address] [place] [address] Fernanda Kuhn MD [address] [place] [address] Results Social History Tobacco Use [...] encounter Miscellaneous Notes * Telephone Encounter - Isabell Cordoba - 11/22/2013 4:29 PM CDT Pt informed of her u/s results * Telephone Encounter - Isabell Cordoba - 11/22/2013 4:28 PM CDT Message copied by ISABELL CORDOBA on FriNov 22, 2013 4:28 PM ------ Message from: FERNANDA KUHN Created: FriNov 17, 2013 12:30 PM Patient has small cystic nodules on her thyroid. No biopsy is necessary at this time. ------ documented in this encounter Plan of Treatment Upcoming Encounters Date Type Department Care Team (Late st Contact Info) Description 07/12/2024 2:30 PM NEWSPAPER PUBLISHER Office Visit [facility] Oncology and Hematology - [place] [address] [facility] [address] [place] [address] Ovidio Nolen MD [address] [facility] [address] [place] [address] documented as of this encounter Visit Diagnoses Not on filedocumented in this encounter Care Teams Shipyard Helper Relationship Specialty Start Date End Date Grupo Garcia MD PCP - General Internal Medicine 08/14/10 06/22/15 documented as of this encounter
--- OUTSIDE RECORDS SUMMARY | 2024-05-26 13:18 | XMS_ITS | Encounter Summary ---
Author Organization [facility] Address [address] [place] [address] Care Team Providers Care Net C Developer Name Role Phone Grupo Garcia MD Primary Care Provider Unavailab le Encounter Details Date Type Department Care Team (Late Contact Info) Description 09/16/2013 Abstract [facility] Endocrinology [address] [place] [address] Yuliya Ibarra MD [address] [place] [address] Social History Tobacco Use Types [...] (Late Contact Info) Description 07/12/2024 2:30 PM CERTIFICATION AND SELECTION SPECIALIST Office Visit [facility] Oncology and Hematology - [place] [address] [facility] [address] [place] [address] Ovidio Nolen MD [address] [facility] [address] [place] [address] documented as of this encounter Visit Diagnoses Not on filedocumented in this encounter Care Teams Net C Developer Relationship Specialty Start Date End Date Grupo Garcia MD PCP - General Internal Medicine 08/14/10 2 documented as of this encounter
--- OUTSIDE RECORDS SUMMARY | 2024-05-26 13:18 | XMS_ITS | Encounter Summary ---
Author Organization [facility] Address [address] [place] [address] Care Team Providers Care Swatch Clerk Name Role Phone Grupo Garcia MD Primary Care Provider Unavailab le Encounter Details Date Type Department Care Team (Late Contact Info) Description 07/13/2013 Abstract [facility] Endocrinology [address] [place] [address] Yuliya Ibarra MD [address] [place] [address] Social History Tobacco Use Types [...] (Late Contact Info) Description 07/12/2024 2:30 PM DRAMATIC ARTS HISTORIAN Office Visit [facility] Oncology and Hematology - [place] [address] [facility] [address] [place] [address] Ovidio Nolen MD [address] [facility] [address] [place] [address] documented as of this encounter Visit Diagnoses Not on filedocumented in this encounter Care Teams Swatch Clerk Relationship Specialty Start Date End Date Grupo Garcia MD PCP - General Internal Medicine 08/14/10 2 documented as of this encounter
--- OUTSIDE RECORDS SUMMARY | 2024-05-26 13:18 | XMS_ITS | Encounter Summary ---
Author Organization [facility] Address [address] [place] [address] Care Team Providers Care Founder Chairman And Chief Creative Officer Name Role Phone Grupo Garcia MD Primary Care Provider Unavailab le Reason for Visit * Reason Comments Diabetes Thyroid Problem Encounter Details Date Type Department Care Team (Latest Contact Info) Description 11/17/2013 2:15 PM CDT Office Visit [facility] Endocrinology [address] [place] [address] Yuliya Ibarra MD [address] [place] [address] Hypothyroidism (Primary Dx); Diabetes mellitus type II, uncontrolled; Multiple thyroid nodules; Hypercalcemia; Hyperparathyroidism Social History Tobacco Use Types Packs/Day [...] Sign Reading Time Taken Comments Blood Pressure 138/78 11/17/2013 2:17 PM CDT Pulse 82 11/17/2013 2:17 PM CDT Temperature - - Respiratory Rate - - Oxygen Saturation - - Inhaled Oxygen Concentration - - Weight 88.5 kg (195 lb) 11/17/2013 2:17 PM CDT Height 165.1 cm (5' 5 ) 11/17/2013 2:17 PM CDT Body Mass Index 32.45 11/17/2013 2:17 PM CDT documented in this encounter Progress Notes * Yuliya Ibarra MD - 11/17/2013 2:22 PM CDT [facility] Endocrinology Yuliya Ibarra M.D. PCP: Dr. Grupo Garcia Training And Documentation Specialist: Dr. Alexandre Reese Neurologist: Dr. Nelson Ross Aircraft Motor Mechanic: Dr. Krishan Moran Vascular Surgeon: Dr. Elle Landaverde Media Strategist: Dr. Laz Valencia Cloth Shearing Supervisor: Dr. Phuong Callejas Reason for visit: DM follow-up. Subjective: Perla Leon is a 72 y.o. female with multiple medical problems, who presents to clinic for thyroid nodule follow-up, as well as diabetes and hypercalcemia. Patient was diagnosed with multiple thyroid nodules via ultrasound. Her nodules were small enough to monitor. Her recent thyroid ultrasound done in October of 2013 is still revealing small thyroid nodules. Patient denies changes in her neck size, dysphagia, voice changes, exposure to radiation treatments. Patient was diagnosed with DM over a year ago. Currently taking Glimepiride 1 mg bid. Could not tolerate Metformin secondary to diarrhea. Checks her blood sugars once a day - in am, in low 100's mostly, some sugars later in the day in 120's -150's Has seen a classified ad clerk at [facility]. Glucometer: has one. Last eye exam: 3 months ago - has glaucoma. No hypoglycemia. Goes to a assembler 1st shift. 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 Her DEXA scan revealed osteopenia and she was found to have normal urine calcium level. Patient is taking Triamterene/ HCTZ for her legswelling. She denies having problems with high calcium in the past, denies nephrolithiasis, admits to memory issues. Review of Systems: Endo/Gen: Her weight has [...] glimepiride (AMARYL) 1 mg tablet TAKE 1 TAB BY MOUTH 2 TIMES DAILY WITH MEALS. 60 Tab 2 ??? bimatoprost (LUMIGAN) 0.01 % solution 1 Drop daily at bedtime. ??? HYPROMELLOSE (SYSTANE GEL OP) by Ophthalmic route. PRN ??? lancets (FREESTYLE LANCETS) 28 gauge 100 Each by [facility].(Non-Drug; Combo Route) route daily. Dx code 250.02 100 Each 6 ??? FREESTYLE LITE STRIPS Strip Check once a day alternating before breakfast or before dinner 100 Strip 1 ??? IPRATROPIUM BROMIDE INHALATION Take by inhalation [...] after stroke-none since ??? CVD (cerebrovascular disease) 8869-5813 TIA x2 ??? Duodenal ulcer 1977 ??? Shingles [id number] x3 ??? Glaucoma ??? Heart murmur ??? [...] from vocal cord ??? Hx hernia repair 2009-[facility] ??? Hx knee arthroscopy [phone] right knee ??? Hx heart catheterization 2002 dr. Valencia ??? Hx surgical other 1985 surgery for broken nose ??? Pr repr vaginal prolapse,sacrosp lig 09/10/2010 SACROSPINOUS LIGAMENT FIXATION performed by FRANKLYN PACK at [facility] ??? Pr anter colporrhaphy,blad/vagina 09/10/2010 CYSTOCELE REPAIR performed by FRANKLYN PACK at [facility] ??? Hx surgical other 09/10/2010 ANTERIOR POSTERIOR REPAIR performed by FRANKLYN PACK at [facility] ??? Pr repair of perineum,non obstetrical 09/10/2010 PERINEOPLASTY performed by FRANKLYN PACK at [facility] ??? Pr post colporrhaphy,rectum/vagina 09/10/2010 RECTOCELE REPAIR performed by FRANKLYN PACK at [facility] ??? Pr repair enterocele,vag apprch 09/10/2010 ENTEROCELE REPAIR VAGINAL APPROACH performed by FRANKLYN PACK at [facility] Physical Findings: No results found for this visit on 11/17/13. Wt Readings from Last 3 Encounters: 11/17/13 195 lb (88.451 kg) 07/30/13 196 lb (88.905 kg) 04/28/13 200 lb (90.719 kg) BP 138/78 Pulse 82 Ht 5' 5 (1.651 m) Wt 195 lb (88.451 kg) BMI 32.45 kg/m2 Physical Exam: General appearance: alert, well [...] 2+ with a normal return phase. Lab: HgA1C - 7.1% - November 03. 04/08/13 [...] 25 OH, TOTAL 22 04/28/2013 3:24 PM Assessment/Plan: 1. Type II Diabetes Mellitus controlled: discussed the risk factors associated with diabetes. have encouraged diet and exercise as tolerated with her. discussed current medications and have asked that she adjust her medications to include the following: continue current Glimepiride 1 mg bid. Patient was asked to monitor blood sugars and write down how much diabetic meds taken/accucheck time/special circumstances Diabetes plan reviewed with patient. 2. 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 Discussed risks of hypercalcemia: including but not limited to renal stones, constipation, confusion, memory problems. Needs to go to ER if increased confusion, dehydration, nausea, vomiting etc Check ionized calcium, intact PTH, BMP. Discussed most likely cause of hypercalcemia, which is primary hyperparathyroidism. Patient is taking HCTZ, which can contribute to her hypercalcemia, will stop and adjust her diuretics if calcium level is higher. 3. Thyroid nodules - stable. Recheck TSH. Patient is to call if experiences [...] Yuliya Ibarra MD * Kati Quintero - 11/17/2013 2:18 PM CDT Pt here f/u dm/thyroid documented in this encounter Plan of Treatment Upcoming Encounters Date Type Department Care Team (Late st Contact Info) Description 07/12/2024 2:30 PM OSD CLERK Office Visit [facility] Oncology and Hematology - [place] [address] [facility] [address] [place] [address] Ovidio Nolen MD [address] [facility] [address] [place] [address] documented as of this encounter Results * (ABNORMAL) TSH (11/17/2013 3:36 PM CDT) TSH 4.24(H) 0.27 - 4.20 uU/mL [facility] Blood 11/17/2013 3:36 PM CDT 11/17/2013 3:44 PM CDT Yuliya Ibarra MD CHEMISTRY ORDERABLES [facility]# [id number] [address] [place] [address] [place] [address] * (ABNORMAL) BASIC METABOLIC PANEL (11/17/2013 3:36 PM CDT) CALCIUM 10.7(H) 8.6 - 10.2 mg/dL [facility] SERVICES - . [facility] SODIUM 142 135 - 145 mmol/L [facility] POTASSIUM 3.9 3.5 - 4.9 mmol/L [facility] SERVICES - . [facility] CHLORIDE 106 96 - 108 mmol/L [facility] - . [facility] CO2 28 22 - 30 mmol/L [facility] BUN 21(H) 6 - 20 mg/dL [facility] CREATININE 0.86 0.51 - 0.95 mg/dL [facility] GLUCOSE 139(H) 65 - 99 mg/dL [facility] SERVICES [facility] GFR, >60 >=60 mL/min/1.7 sq meter [facility] SERVICES - [facility] GFR >60 >=60 mL/min/1.7 sq meter [facility] - [facility] Comment: eGFR has not been validated for use in the elderly (>70 years of age), women, patients with serious co-morbid conditions, or persons with extremes of body size or muscle mass and should also be interpreted with caution in patients with acute kidney failure, dialysis dependant patients, patients reporting exceptional dietary intake (e.g.vegetarian diet, high protein diets, creatine supplementation), and patients with severe liver disease. eGFR is not valid for patients <18 years of age. ?? Based on National Kidney Disease Education Program. Blood 11/17/2013 3:36 PM CDT 11/17/2013 3:44 PM CDT Yuliya Ibarra MD CHEMISTRY ORDERABLES Performing Organization Address City/[facility]/ZIP Co de Phone Number [facility] CLIA# [id number] [address] [place] [address] * (ABNORMAL) PTH INTACT (11/17/2013 3:29 PM CDT) PTH INTACT 76(H) 15 - 65 pg/mL [facility] CALCIUM 10.7(H) 8.6 - 10.2 mg/dL [facility] SERVICES [facility] Blood 11/17/2013 3:29 PM CDT 11/17/2013 3:44 PM CDT Yuliya Ibarra MD CHEMISTRY ORDERABLES Performing Organization Address [facility]/ZIP Co de Phone Number [facility] CLIA# [id number] [address] [facility] [place] [address] * (ABNORMAL) CALCIUM IONIZED (11/17/2013 3:29 PM CDT) CALCIUM IONIZED 5.55(H) 4.76 - 5.16 mg/dL [facility] Blood 11/17/2013 3:29 PM CDT 11/17/2013 3:48 PM CDT Comment:BLOOD Yuliya Ibarra MD CHEMISTRY ORDERABLES [facility] [id number] [address] [place] [address] documented in this encounter Visit Diagnoses Diagnosis Hypothyroidism- Primary Unspecified hypothyroidism Diabetes mellitus type II, uncontrolled Type II or unspecified type diabetes mellitus without mention of complication, uncontrolled Multiple thyroid nodules Nontoxic multinodular goiter Hypercalcemia Hyperparathyroidism Hyperparathyroidism, unspecified documented in this encounter Care Teams Founder Chairman And Chief Creative Officer Relationship Specialty Start Date End Date Grupo Garcia MD PCP - General Internal Medicine 08/14/10 06/22/15 documented as of this encounter
--- OUTSIDE RECORDS SUMMARY | 2024-05-26 13:18 | XMS_ITS | Encounter Summary ---
Author Organization [facility] Address [address] [place] [address] Care Team Providers Care Direct Support Professional Home Health Name Role Phone Grupo Garcia MD Primary Care Provider Unavailab le Encounter Details Date Type Department Care Team (Late st Contact Info) Description 08/18/2013 Orders Only [facility] Endocrinology [address] [place] [address] Yuliya Ibarra MD [address] [place] [address] Hypercalcemia Social History Tobacco Use [...] st Contact Info) Description 07/12/2024 2:30 PM GOLF CART MECHANIC Office Visit [facility] Oncology and Hematology - [place] [address] [facility] [address] [place] [address] Ovidio Nolen MD [address] [facility] [address] [place] [address] documented as of this encounter Procedures Procedure Name Priority Date/Time Associated Diagnosis Comments BASIC METABOLIC PANEL Routine 07/21/2013 Hypercalcemia documented in this encounter Results * BASIC METABOLIC PANEL (07/21/2013) Blood specimen (specimen) Yuliya Ibarra MD CHEMISTRY ORDERABLES Performing Organization Address City/[facility] Co de Phone Number [facility]# [id number] [address] [place] [address] documented in this encounter Visit Diagnoses Diagnosis Hypercalcemia documented in this encounter Care Teams Direct Support Professional Home Health Relationship Specialty Start Date End Date Grupo Garcia MD PCP - General Internal Medicine 08/14/10 06/22/15 documented as of this encounter
--- OUTSIDE RECORDS SUMMARY | 2024-05-26 13:18 | XMS_ITS | Encounter Summary ---
Author Organization [facility] Address [address] [place] [address] Care Team Providers Care Rater Associate Name Role Phone Grupo Garcia MD Primary Care Provider Unavailab le Encounter Details Date Type Department Care Team (Late Contact Info) Description 11/01/2013 Abstract [facility] Endocrinology [address] [place] [address] Yuliya bIarra MD [address] [place] [address] Social History Tobacco Use Types [...] (Late Contact Info) Description 07/12/2024 2:30 PM PR INTERN Office Visit [facility] Oncology and Hematology - [place] [address] [facility] [address] [place] [address] Ovidio Nolen MD [address] [facility] [address] [place] [address] documented as of this encounter Visit Diagnoses Not on filedocumented in this encounter Care Teams Rater Associate Relationship Specialty Start Date End Date Grupo Garcia MD PCP - General Internal Medicine 08/14/10 2 documented as of this encounter
--- OUTSIDE RECORDS SUMMARY | 2024-05-26 13:18 | XMS_ITS | Encounter Summary ---
Author Organization [facility] Address [address] [place] [address] Care Team Providers Care Assembly Technician Name Role Phone Grupo Garcia MD Primary Care Provider Unavailab le Encounter Details Date Type Department Care Team (Latest Contact Info) Description 11/17/2013 2:59 PM CDT - 11/17/2013 11:59 PM CDT Hospital Encounter [facility] Laboratory Services Medical [place] A [address], [place] [address] Yuliya Ibarra MD [address] [place] [address] Discharge Disposition: Home or Self [...] TIMES DAILY WITH MEALS. 60 Tab 2 08/30/2013 11/24/2013 FREESTYLE LITE STRIPS Strip Check once a day alternating before breakfast or before dinner 100 Strip 1 07/12/2013 12/22/2013 valsartan (DIOVAN) 80 mg Oral tablet Take [...] st Contact Info) Description 07/12/2024 2:30 PM EVENTS TRAFFIC CONTROLLER Office Visit [facility] Oncology and Hematology - Oscar [address] [facility] [address] [place] [address] Ovidio Nolen MD [address] [facility] [address] [place] [address] documented as of this encounter Procedures Procedure Name Priority Date/Time Associated Diagnosis Comments TSH Routine 11/17/2013 3:36 PM CDT Hypothyroidism BASIC METABOLIC PANEL Routine 11/17/2013 3:36 PM CDT Diabetes mellitus type II, uncontrolled Hyperparathyroidism PTH INTACT Routine 11/17/2013 3:29 PM CDT Hyperparathyroidism CALCIUM IONIZED Routine 11/17/2013 3:29 PM CDT Hyperparathyroidism documented in this encounter Results * (ABNORMAL) BASIC METABOLIC PANEL (11/17/2013 3:36 PM CDT) CALCIUM 10.7(H) 8.6 - 10.2 mg/dL [facility] SODIUM 142 135 - 145 mmol/L [facility] POTASSIUM 3.9 3.5 - 4.9 mmol/L [facility] CHLORIDE 106 96 - 108 mmol/L [facility] CO2 28 22 - 30 mmol/L [facility] BUN 21(H) 6 - 20 mg/dL [facility] CREATININE 0.86 0.51 - 0.95 mg/dL [facility] GLUCOSE 139(H) 65 - 99 mg/dL [facility] GFR, >60 >=60 mL/min/1.7 sq meter [facility] GFR >60 >=60 mL/min/1.7 sq meter [facility] Comment: eGFR has not been validated [...] PM CDT Yuliya Ibarra MD CHEMISTRY ORDERABLES [facility] CLIA# [id number] [address] [place] [place] [address] * (ABNORMAL) TSH (11/17/2013 3:36 PM CDT) TSH 4.24(H) 0.27 - 4.20 uU/mL [facility] Blood 11/17/2013 3:36 PM CDT 11/17/2013 3:44 PM CDT Yuliya Ibarra MD CHEMISTRY ORDERABLES Performing Organization Address [facility] Co de Phone Number [facility]# [id number] [address] [place] [address] * (ABNORMAL) CALCIUM IONIZED (11/17/2013 3:29 PM CDT) CALCIUM IONIZED 5.55(H) 4.76 - 5.16 mg/dL [facility] Blood 11/17/2013 3:29 PM CDT 11/17/2013 3:48 PM CDT Comment:BLOOD Yuliya Ibarra MD CHEMISTRY ORDERABLES Performing Organization Address [facility] Co de Phone Number [facility]# [id number] [address] [place] [address] * (ABNORMAL) PTH INTACT (11/17/2013 3:29 PM CDT) PTH INTACT 76(H) 15 - 65 pg/mL [facility] CALCIUM 10.7(H) 8.6 - 10.2 mg/dL [facility] Blood 11/17/2013 3:29 PM CDT 11/17/2013 3:44 PM CDT Yuliya Ibarra MD CHEMISTRY ORDERABLES Performing Organization Address [facility] Co de Phone Number [facility]# [id number] [address] [place] [address] documented in this encounter Visit Diagnoses Diagnosis Hypothyroidism Unspecified hypothyroidism Hyperparathyroidism Hyperparathyroidism, unspecified Diabetes mellitus type II, uncontrolled Type II or unspecified type diabetes mellitus without mention of complication, uncontrolled documented in this encounter Care Teams Assembly Technician Relationship Specialty Start Date End Date Grupo Garcia MD PCP - General Internal Medicine 08/14/10 06/22/15 documented as of this encounter
--- OUTSIDE RECORDS SUMMARY | 2024-05-26 13:18 | XMS_ITS | Encounter Summary ---
Author Organization [facility] Address [address] [place] [address] Care Team Providers Care Drug Coordinator Name Role Phone Grupo Garcia MD Primary Care Provider Unavailab le Encounter Details Date Type Department Care Team (Late Contact Info) Description 06/30/2013 Abstract [facility] Endocrinology [address] [place] [address] Yuliya Ibarra MD [address] [place] [address] Social History Tobacco Use Types [...] (Late Contact Info) Description 07/12/2024 2:30 PM BUS COMPANY MANAGER Office Visit [facility] Oncology and Hematology - Oscar [address] [facility] [address] [place] [address] Ovidio Nolen MD [address] [facility] [address] [place] [address] documented as of this encounter Visit Diagnoses Not on filedocumented in this encounter Care Teams Drug Coordinator Relationship Specialty Start Date End Date Grupo Garcia MD PCP - General Internal Medicine 08/14/10 2 documented as of this encounter
--- OUTSIDE RECORDS SUMMARY | 2024-05-26 13:18 | XMS_ITS | Encounter Summary ---
Author Organization [facility] Address [address] [place] [address] Care Team Providers Care Panel Assembler Name Role Phone Grupo Garcia MD Primary Care Provider Unavailab le Encounter Details Date Type Department Care Team (Late Contact Info) Description 01/04/2014 Abstract [facility] Endocrinology [address] [place] [address] Yuliya Ibarra MD [address] [place] [address] Social History Tobacco Use Types [...] (Late Contact Info) Description 07/12/2024 2:30 PM CONTINUOUS LOFT OPERATOR Office Visit [facility] Oncology and Hematology - Oscar [address] [facility] 200 [place] [address] Ovidio Nolen MD [address] [facility] [address] [place] [address] documented as of this encounter Visit Diagnoses Not on filedocumented in this encounter Care Teams Panel Assembler Relationship Specialty Start Date End Date Grupo Garcia MD PCP - General Internal Medicine 08/14/10 2 documented as of this encounter
--- OUTSIDE RECORDS SUMMARY | 2024-05-26 13:18 | XMS_ITS | Encounter Summary ---
Author Organization [facility] Address [address] [place] [address] Care Team Providers Care Physician Neonatology Name Role Phone Grupo Garcia MD Primary Care Provider Unavailab le Reason for Visit * Reason Comments Medication Refill Encounter Details Date Type Department Care Team (Late st Contact Info) Description 08/30/2013 Refill [facility] Endocrinology [address] [place] [address] Yuliya Ibarra MD [address] [place] [address] Social History Tobacco Use Types [...] (Late Contact Info) Description 07/12/2024 2:30 PM GLUE JOINTER FEEDER Office Visit [facility] Oncology and Hematology - Oscar [address] [facility] [address] [place] [address] Ovidio Nolen MD [address] [facility] [address] [place] [address] documented as of this encounter Visit Diagnoses Not on filedocumented in this encounter Care Teams Physician Neonatology Relationship Specialty Start Date End Date Grupo Garcia MD PCP - General Internal Medicine 08/14/10 2 documented as of this encounter
--- OUTSIDE RECORDS SUMMARY | 2024-05-26 13:18 | XMS_ITS | Encounter Summary ---
Author Organization [facility] Address [address] [place] [address] Care Team Providers Care Lean Sensei Name Role Phone Grupo Garcia MD Primary Care Provider Unavailab le Encounter Details Date Type Department Care Team (Late Contact Info) Description 02/01/2014 Abstract [facility] Endocrinology [address] [place] [address] Yuliya Ibarra MD [address] [place] [address] Social History Tobacco Use Types [...] (Late Contact Info) Description 07/12/2024 2:30 PM PROJECT STRUCTURAL ENGINEER Office Visit [facility] Oncology and Hematology - Oscar [address] [facility] 200 [place] [address] Ovidio Nolen MD [address] [facility] [address] [place] [address] documented as of this encounter Visit Diagnoses Not on filedocumented in this encounter Care Teams Lean Sensei Relationship Specialty Start Date End Date Grupo Garcia MD PCP - General Internal Medicine 08/14/10 2 documented as of this encounter
--- OUTSIDE RECORDS SUMMARY | 2024-05-26 13:18 | XMS_ITS | Encounter Summary ---
Author Organization [facility] Address [address] [place] [address] Care Team Providers Care Spring Former Hand Name Role Phone Grupo Garcia MD Primary Care Provider Unavailab le Encounter Details Date Type Department Care Team (Late Contact Info) Description 08/26/[address] [facility] Endocrinology [address] [place] [address] Yuliya Ibarra MD [address] [place] [address] Social History Tobacco Use Types [...] Contact Info) Description 07/12/2024 2:30 PM PROJECT CONSTRUCTION ASSISTANT MANAGER Office Visit [facility] Oncology and Hematology - Oscar [address] [facility] 200 [place] [address] Ovidio Nolen MD [address] [facility] [address] [place] [address] documented as of this encounter Visit Diagnoses Not on filedocumented in this encounter Care Teams Spring Former Hand Relationship Specialty Start Date End Date Grupo Garcia MD PCP - General Internal Medicine 08/14/10 2 documented as of this encounter
--- OUTSIDE RECORDS SUMMARY | 2024-05-26 13:18 | XMS_ITS | Encounter Summary ---
Author Organization [facility] Address [address] [place] [address] Care Team Providers Care Cat Operator Name Role Phone Grupo Garcia MD Primary Care Provider Unavailab le Encounter Details Date Type Department Care Team (Late Contact Info) Description 08/03/2013 Abstract [facility] Endocrinology [address] [place] [address] Yuliya Ibarra MD [address] [place] [address] Social History Tobacco Use Types [...] (Late Contact Info) Description 07/12/2024 2:30 PM SOFTWARE SECURITY ARCHITECT Office Visit [facility] Oncology and Hematology - Oscar [address] [facility] 200 [place] [address] Ovidio Nolen MD [address] [facility] [address] [place] [address] documented as of this encounter Visit Diagnoses Not on filedocumented in this encounter Care Teams Cat Operator Relationship Specialty Start Date End Date Grupo Garcia MD PCP - General Internal Medicine 08/14/10 2 documented as of this encounter
--- OUTSIDE RECORDS SUMMARY | 2024-05-26 13:18 | XMS_ITS | Encounter Summary ---
Author Organization [facility] Address [address] [place] [address] Care Team Providers Care Legal Analyst Name Role Phone Grupo Garcia MD Primary Care Provider Unavailab le Reason for Visit * Reason Comments Medication Refill Encounter Details Date Type Department Care Team (Late st Contact Info) Description 12/22/2013 Refill [facility] Endocrinology [address] [place] [address] Yuliya Ibarra MD [address] [place] [address] Social History Tobacco Use [...] * Telephone Encounter - Nivia Shea - 12/22/2013 9:41 AM CDT galo 11/17/13, nov 03/21/14 documented in this encounter Plan of Treatment Upcoming Encounters Date Type Department Care Team (Late st Contact Info) Description 07/12/2024 2:30 PM CYBER DEFENSE FORENSICS ANALYST Office Visit [facility] Oncology and Hematology - Oscar [address] [place] [address] [place] [address] Ovidio Nolen MD [address] [facility] [address] [place] [address] documented as of this encounter Visit Diagnoses Not on filedocumented in this encounter Care Teams Legal Analyst Relationship Specialty Start Date End Date Grupo Garcia MD PCP - General Internal Medicine 08/14/10 06/22/15 documented as of this encounter
--- OUTSIDE RECORDS SUMMARY | 2024-05-26 13:18 | XMS_ITS | Encounter Summary ---
Author Organization [facility] Address [address] [place] [address] Care Team Providers Care Personal Security Specialist Name Role Phone Grupo Garcia MD Primary Care Provider Unavailab le Reason for Visit * Reason Onset Date Comments Low Blood Sugar 06/07/2013 Encounter Details Date Type Department Care Team (Late st Contact Info) Description 06/07/2013 Telephone [facility] Endocrinology [address] [place] [address] Yuliya Ibarra MD [address] [place] [address] Low Blood Sugar Social History Tobacco Use Types [...] * Telephone Encounter - Nivia Shea - 06/07/2013 10:33 AM CST Patient informed per note below. New Rx sent to pharmacy. SAFETY SPECIALIST * Telephone Encounter - Yuliya Ibarra MD - 06/07/2013 9:50 AM CST Lets decrease her dose to 1 mg in am and 1 mg in pm - will need a new script for 1 mg tablets of Glimepiride. Start taking when her sugars go up to over 150. Needs to let me know if any more low sugars. SAFETY SPECIALIST * Telephone Encounter - Nivia Shea - 06/07/2013 9:30 AM CST Patient has had low blood sugars the last 2 days around noon. Friday bg was 59, she drank OJ and on recheck it was 65, then 79 and 105. Friday bg was 58, again drank OJ, increased to 60 and 144. Patient takes 4 mg glimepiride in the morning. SAFETY SPECIALIST documented in this encounter Plan of Treatment Upcoming Encounters Date Type Department Care Team (Late st Contact Info) Description 07/12/2024 2:30 PM DRUG SAFETY SPECIALIST Office Visit [facility] Oncology and Hematology - Oscar [address] [facility] [address] [address] Ovidio Nolen MD [address] [facility] [address] [place] [address] documented as of this encounter Visit Diagnoses Not on filedocumented in this encounter Care Teams Personal Security Specialist Relationship Specialty Start Date End Date Grupo Garcia MD PCP - General Internal Medicine 08/14/10 06/22/15 documented as of this encounter
--- OUTSIDE RECORDS SUMMARY | 2024-05-26 13:18 | XMS_ITS | Encounter Summary ---
Author Organization [facility] Address [address] [place] [address] Care Team Providers Care Blanket Folder Name Role Phone Grupo Garcia MD Primary Care Provider Unavailab le Reason for Visit * Reason Onset Date Comments Results 02/16/2014 Encounter Details Date Type Department Care Team (Late st Contact Info) Description 02/16/2014 Patient Outreach [facility] Endocrinology [address] [place] [address] Yuliya Ibarra MD [address] [place] [address] Results Social History Tobacco Use [...] * Telephone Encounter - Sejal Huffman - 02/16/2014 9:47 AM CDT Pt informed of bs log same and voiced understanding, pt also advised to keep sending in bs logs documented in this encounter Plan of Treatment Upcoming Encounters Date Type Department Care Team (Late st Contact Info) Description 07/12/2024 2:30 PM AIR FILLER Office Visit [facility] Oncology and Hematology - Oscar [address] [place] [address] Ovidio Nolen MD [address] [facility] [address] [place] [address] documented as of this encounter Visit Diagnoses Not on filedocumented in this encounter Care Teams Blanket Folder Relationship Specialty Start Date End Date Grupo Garcia MD PCP - General Internal Medicine 08/14/10 06/22/15 documented as of this encounter
--- OUTSIDE RECORDS SUMMARY | 2024-05-26 13:18 | XMS_ITS | Encounter Summary ---
Author Organization [facility] Address [address] [place] [address] Care Team Providers Care Composite Worker Name Role Phone Grupo Garcia MD Primary Care Provider Unavailab le Encounter Details Date Type Department Care Team (Late Contact Info) Description 06/01/2013 Abstract [facility] Endocrinology [address] [place] [address] Yuliya Ibarra MD [address] [place] [address] Social History Tobacco Use [...] (Late Contact Info) Description 07/12/2024 2:30 PM BASIN FINISH OPERATOR TIG WELDER Office Visit [facility] Oncology and Hematology - Oscar [address] [facility] 200 [place] [address] Ovidio Nolen MD [address] [facility] [address] [place] [address] documented as of this encounter Visit Diagnoses Not on filedocumented in this encounter Care Teams Composite Worker Relationship Specialty Start Date End Date Grupo Garcia MD PCP - General Internal Medicine 08/14/10 2 documented as of this encounter
--- OUTSIDE RECORDS SUMMARY | 2024-05-26 13:19 | XMS_ITS | Encounter Summary ---
Author Organization [facility] Address [address] [place] [address] Care Team Providers Care Cancer Genetic Counselor Name Role Phone Grupo Garcia MD Primary Care Provider Unavailab le Encounter Details Date Type Department Care Team (Late st Contact Info) Description 08/22/2010 2:25 PM CDT - 08/22/2010 11:59 PM CDT Hospital Encounter [facility] Services [facility] A [address] [place] [address] Jack Mcdaniel MD [address] [place] [address] Discharge Disposition: Home or Self Care Social [...] Sig Dispensed Refills Start Date End Date esomeprazole (NEXIUM) 40 mg Oral CpDR Take [...] Indications: instructed to stop prior to surgery levofloxacin (LEVAQUIN) 500 mg Oral tablet Take 1 Tab by mouth daily for 9 days. 9 Tab 0 09/11/2010 09/20/2010 levofloxacin (LEVAQUIN) 500 mg Oral tablet Take 500 mg by mouth daily. 09/11/2010 valsartan (DIOVAN) 80 mg Oral tablet Take 80 mg by mouth daily. 06/21/2016 potassium chloride (KLOR-CON 10) 10 mEq Oral TbSRIndications:takes two tabs in the am Take 10 mEq by mouth daily with breakfast. Indications: takes two tabs in the am 08/22/2010 12/08/2014 OTHER Provider please include Medication name, dose, route and frequency 05/06/2012 documented as of this encounter Plan of Treatment Upcoming Encounters Date Type Department Care Team (Late st Contact Info) Description 07/12/2024 2:30 PM FENCE MANUFACTURE SUPERVISOR Office Visit [facility] Oncology and Hematology - Oscar [address] [facility] 200 [place] [address] Ovidio Nolen MD [address] [facility] [address] [place] [address] documented as of this encounter Procedures Procedure Name Priority Date/Time Associated Diagnosis Comments XR CHEST PA AND LATERAL 2 VW Routine 08/22/2010 2:39 PM CDT documented in this encounter Results * XR CHEST PA AND LATERAL (08/22/2010 2:39 PM CDT) Anatomical Region Laterality Modality Chest Computed Radiogr aphy 08/22/2010 2:38 PM CDT Impressions 08/24/2010 8:46 AM CDT IMPRESSION: ??No acute disease. Narrative 08/24/2010 8:46 AM CDT CHEST PA AND LATERAL, 08/22/2010 Clinical History: Preoperative study. PA and lateral views of the chest on 08/22/2010 ??demonstrate the heart to be within normal limits in size. Pulmonary vasculature is not congested. Lungs are clear of acute processes. No effusions or pneumothoraces are evident. Moderate anterior osteophytic spurring of the midthoracic spine is noted. Procedure Note Alexandra Joseph MD - 08/24/2010 CHEST PA AND LATERAL, 08/22/2010 Clinical History: Preoperative study. PA and lateral views of the chest on 08/22/2010 demonstrate the heart to be within normal limits in size. Pulmonary vasculature is not congested. Lungs are clear of acute processes. No effusions or pneumothoraces are evident. Moderate anterior osteophytic spurring of the midthoracic spine is noted. IMPRESSION IMPRESSION: No acute disease. Jack Mcdaniel MD DIAGNOSTIC IMAG ING ORDERABLES documented in this encounter Visit Diagnoses Not on filedocumented in this encounter Care Teams Cancer Genetic Counselor Relationship Specialty Start Date End Date Grupo Garcia MD PCP - General Internal Medicine 08/14/10 06/22/15 documented as of this encounter
--- OUTSIDE RECORDS SUMMARY | 2024-05-26 13:19 | XMS_ITS | Encounter Summary ---
Author Organization [facility] Address [address] [place] [address] Care Team Providers Care Creel Cleaner Name Role Phone Grupo Garcia MD Primary Care Provider Unavailab le Encounter Details Date Type Department Care Team (Late Contact Info) Description 05/06/2012 Orders Only [facility] Endocrinology [address] [place] [address] Provider, Abstract NO ADDRESS ON [...] st Contact Info) Description 07/12/2024 2:30 PM MICROSOFT INFRASTRUCTURE CONSULTANT Office Visit [facility] Oncology and Hematology - Oscar [address] [facility] [address] [place] [address] Ovidio Nolen MD [address] [facility] [address] [place] [address] documented as of this encounter Procedures Procedure Name Priority Date/Time Associated Diagnosis Comments IMAGING REPORT Routine 04/15/2012 MISCELLANEOUS LAB TEST Routine 07/30/2011 documented in this encounter Results * IMAGING REPORT (04/15/2012) Anatomical Region Laterality Modality Other Abstract Provider DIAGNOSTIC IMAGING O RDERABLES * MISCELLANEOUS LAB TEST (07/30/2011) Specimen of unknown material (specimen) Abstract Provider CHEMISTRY ORDERABLES Performing Organization Address City/State/[facility] Co de Phone Number [facility]# [id number] [address] [address] documented in this encounter Visit Diagnoses Not on filedocumented in this encounter Care Teams Creel Cleaner Relationship Specialty Start Date End Date Grupo Garcia MD PCP - General Internal Medicine 08/14/10 2 documented as of this encounter
--- OUTSIDE RECORDS SUMMARY | 2024-05-26 13:19 | XMS_ITS | Encounter Summary ---
Author Organization [facility] Address [address] [place] [address] Care Team Providers Care Kiln Furniture Caster Name Role Phone Grupo Garcia MD Primary Care Provider Unavailab le Encounter Details Date Type Department Care Team (Late Contact Info) Description 05/18/2013 Abstract [facility] Endocrinology [address] [place] [address] Yuliya Ibarra MD [address] [place] [address] Social History Tobacco Use Types [...] (Late Contact Info) Description 07/12/2024 2:30 PM TARGET PROTECTION SPECIALIST Office Visit [facility] Oncology and Hematology - [place] [address] [facility] [address] [place] [address] Ovidio Nolen MD [address] [place] [address] documented as of this encounter Visit Diagnoses Not on filedocumented in this encounter Care Teams Kiln Furniture Caster Relationship Specialty Start Date End Date Grupo Garcia MD PCP - General Internal Medicine 08/14/10 2 documented as of this encounter
--- OUTSIDE RECORDS SUMMARY | 2024-05-26 13:19 | XMS_ITS | Encounter Summary ---
Author Organization [facility] Address [address] [place] [address] Care Team Providers Care Systems Accountant Name Role Phone Grupo Garcia MD Primary Care Provider Unavailab le Reason for Referral * Outpatient Services (Routine) - Closed Specialty Diagnoses / Procedures Referred By Alejandrina vale Referred To Contact Ultrasound Diagnoses Multiple thyroid nodules Procedures US HEAD NECK TISSUES Ramo Barajas MD NO ADDRESS ON FILE Referral ID Status Reason Start Date Expiration Date Visits Re quested Visits Authorized [id number] Closed 05/06/2012 05/06/2013 1 1 RINARY MILK SPECIALIST Reason for Visit * Reason Comments Establish Care n/p thyroid nodule Encounter Details Date Type Department Care Team (Late st Contact Info) Description 05/06/2012 2:15 PM VETERINARY MILK SPECIALIST Office Visit [facility] [place] Endocrinology [address] [place] [address] Ramo Barajas MD NO ADDRESS ON FILE Multiple thyroid nodules (Primary Dx) Social History Tobacco Use Types [...] Sign Reading Time Taken Comments Blood Pressure 136/80 05/06/2012 1:40 PM VETERINARY MILK SPECIALIST Pulse 90 05/06/2012 1:40 PM VETERINARY MILK SPECIALIST Temperature - - Respiratory Rate - - Oxygen Saturation - - Inhaled Oxygen Concentration - - Weight 91.6 kg (202 lb) 05/06/2012 1:40 PM VETERINARY MILK SPECIALIST Height 165.1 cm (5' 5 ) 05/06/2012 1:40 PM VETERINARY MILK SPECIALIST Body Mass Index 33.61 05/06/2012 1:40 PM VETERINARY MILK SPECIALIST documented in this encounter Progress Notes * Isabell Cordoba - 05/06/2012 2:41 PM CSTAddended by: ISABELL CORDOBA on: 05/06/2012 02:41 PM Modules accepted: Orders RINARY MILK SPECIALIST * Ramo Barajas MD - 05/06/2012 1:59 PM CST Perla Leon is a 71 y.o. female referred for consultation by Dr. Ray for the evaluation and management of thyroid nodule(s). The nodules were discovered on recent CT scan done for fall. Perla Leon denies any changes in voice, problems swallowing, shortness of breath, weight loss, radiation exposure, or family history of thyroid cancer. No other acute issues at this time. 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 Previous notes, labs, and records reviewed. Past Medical History Diagnosis Date ??? Pneumonia just recovering ??? Seizure disorder 2000 after stroke-none since ??? CVD (cerebrovascular disease) 4844-1634 TIA x2 ??? Duodenal ulcer 1977 ??? Shingles [id number] x3 ??? Glaucoma ??? Heart murmur ??? [...] day of surgery Past Surgical History Procedure Date ??? Hx cholecystectomy 1997 ??? Hx hysterectomy 1986 ??? Hx surgical other 1975 ulcer removed from vocal cord ??? Hx hernia repair 2009-[facility] [place] ??? Hx knee arthroscopy [id number] right knee ??? Hx heart catheterization 2002 dr. Valencia ??? Hx surgical other 1985 surgery for broken nose ??? Pr repr vaginal prolapse,sacrosp lig 09/10/2010 SACROSPINOUS LIGAMENT FIXATION performed by FRANKLYN PACK at [facility] ??? Pr anter colporrhaphy,blad/vagina 09/10/2010 CYSTOCELE REPAIR performed by FRANKLYN PACK at [facility] ??? Hx surgical other 09/10/2010 ANTERIOR POSTERIOR REPAIR performed by FRANKLYN PACK at [facility] ??? Pr repair of perineum,non obstetrical 09/10/2010 PERINEOPLASTY performed by FRANKLYN PACK at [facility] ??? Pr post colporrhaphy,rectum/vagina 09/10/2010 RECTOCELE REPAIR performed by FRANKLYN PACK at [facility] ??? Pr repair enterocele,vag apprch 09/10/2010 ENTEROCELE REPAIR VAGINAL APPROACH performed by FRANKLYN PACK at [facility] History Social History ??? Marital Status: Spouse Name: N/A Number of Children: N/A ??? Years of Education: N/A Occupational History ??? Social History Main Topics ??? Smoking status: Never Smoker ??? Smokeless tobacco: Not on file ??? Alcohol Use: No ??? Drug Use: No ??? Sexually Active: hyst Other Topics Concern ??? Not on file Social History Narrative ??? No narrative on file Family History Problem Relation Age of Onset ??? Breast Cancer Mother ??? Hypertension Brother ??? High Cholesterol Brother Current Outpatient Prescriptions Medication Sig Dispense Refill ??? oxyCODONE-acetaminophen (PERCOCET) 5-325 mg Oral tablet Take 1 Tab by mouth every 4 hours as needed (For Pain Scale 4-6). 20 Tab 0 ??? docusate sodium (COLACE) 100 mg Oral capsule Take 1 Cap by mouth 2 times daily as needed for Constipation. 60 Cap 6 ??? conjugated estrogens (PREMARIN) 0.625 mg/g Vaginal vaginal cream Insert 0.5 Gram vaginally see administration instructions. After removing vaginal packing, apply to vagina twice a week at bedtime. 1 Tube 6 ??? esomeprazole (NEXIUM) 40 mg Oral CpDR [...] mg by mouth daily at bedtime. ??? latanoprost (XALATAN) 0.005 % OP solution Administer 1 Drop in both eyes daily at bedtime. ??? cyanocobalamin (VITAMIN B-12) 1,000 mcg Oral Tab Take 1,000 mcg by mouth daily. ??? multivitamin (DAILY-BRYON) Oral tablet Take 1 Tab by mouth daily. Indications: instructed to stop prior to surgery ??? ergocalciferol (VITAMIN D) 50,000 unit Oral capsule Take 50,000 Units by mouth every 7 days. ??? OTHER Provider please include Medication name, dose, route and frequency ??? albuterol (PROVENTIL,VENTOLIN) 90 mcg/Actuation Inhalation Aero Take by inhalation every 6 hours as needed. Indications: hasn't used in one year Allergies Allergen Reactions ??? Advair Diskus (Fluticasone-Salmeterol) Unknown ??? Aricept (Donepezil) Unknown ??? Diltiazem Unknown ??? Latex Unknown Meds reviewed (see above) Review of Systems - As stated above and below otherwise negative General ROS: negative for weight changes,- fever Psychological ROS: negative for anxiety or depressive symptoms Endocrine ROS: negative for polyuria/polydipsia Respiratory ROS: negative for cough, shortness of breath, or wheezing Cardiovascular ROS: negative for chest pain or dyspnea on exertion Gastrointestinal ROS: negative for reflux, abdominal pain, + change in bowel habits, or black or bloody stools Genito-Urinary ROS: negative for dysuria, trouble voiding, or hematuria Musculoskeletal ROS: negative for back pain, neck pain or joint pain or swelling Integumentary ROS: No rashes Neurological ROS: negative for TIA or stroke symptoms PE: The patient is alert oriented x3 BP 136/80 Pulse 90 Ht 5' 5 (1.651 m) Wt 202 lb (91.627 kg) BMI 33.61 kg/m2 NCAT, PERRL, hearing intact Neck is supple, there is no thyroid enlargement. Palpable nodule There is no carotid bruit There are no enlarged lymph nodes CV: S1S2 normal in rhythm and rate, MARY Resp: CTA bilaterally Abd: soft, non tender, no organomegaly Ext: ++ edema Neuro: CN 2-12 grossly intact, No focal deficits, sensation intact, reflexes intact Skin: no rashes present Labs reviewed and scanned into EPIC A/P: -- We extensively discussed thyroid nodules, management and follow up. -- We discussed the procedure, as well as possible mild risks that include bleeding, trauma, local infection and 15% chance of an insufficient sample. -- We also talked about possible results such as: 1-Benign, in which case we would observe and repeat an U/S in 6 months. 2-Indeterminate (Follicular lesions) which require surgery to evaluate capsular invasion. 3-Malignant or suspicious, that would definitely require surgery. 4-Insufficient sample: That would need a repeat FNA in 3 months. -- We decided that due to her issues with spastic paraplegia and the inability to control her spasms in her legs we decided that it would be safer to see if her nodules grow over the next 6 months tosee if a biopsy is necessary at this point. I recommended that she have her US done at the same facility that she had the first one done. -- F/U in 6 months with the results. Perla was seen today for establish care. Diagnoses and associated orders for this visit: Multiple thyroid nodules - US HEAD NECK TISSUES; Future RINARY MILK SPECIALIST * Isabell Cordoba - 05/06/2012 1:40 PM CST Pt here n/p thyroid nodule RINARY MILK SPECIALIST documented in this encounter Plan of Treatment Upcoming Encounters Date Type Department Care Team (Late st Contact Info) Description 07/12/2024 2:30 PM VETERINARY MILK SPECIALIST Office Visit [facility] [place] Oncology and Hematology [facility] [address] [facility] [address] [place] [address] Ovidio Nolen MD [address] [place] [address] documented as of this encounter Results * US HEAD NECK TISSUES (10/19/2012) Anatomical Region Laterality Modality Head Other Ramo Barajas MD US ORDERABLES documented in this encounter Visit Diagnoses Diagnosis Multiple thyroid nodules- Primary Nontoxic multinodular goiter documented in this encounter Care Teams Systems Accountant Relationship Specialty Start Date End Date Grupo Garcia MD PCP - General Internal Medicine 08/14/10 06/22/15 documented as of this encounter
--- OUTSIDE RECORDS SUMMARY | 2024-05-26 13:19 | XMS_ITS | Encounter Summary ---
Author Organization [facility] Address [address] [place] [address] Care Team Providers Care Electrolysis Needle Operator Name Role Phone Grupo Garcia MD Primary Care Provider Unavailab le Reason for Referral * Outpatient Services (Routine) - Closed Specialty Diagnoses / Procedures Referred By Contandrea vale Referred To Contact Diagnoses Serum calcium elevated Procedures XR DEXA BONE DENSITY AXIAL 1 OR MORE SITES Fernanda Kuhn MD [address] [place] [address] Referral ID Status Reason Start Date Expiration Date V isits Requested Visits Authorized [id number] Closed [facility] CTS 04/29/2013 05/30/2014 1 1 NE HABITAT RESOURCE SPECIALIST Reason for Visit * Reason Onset Date Comments Results 04/29/2013 Encounter Details Date Type Department Care Team (Late st Contact Info) Description 04/29/2013 Telephone [facility] Endocrinology [address] [place] [address] Fernanda Khun MD [address] [place] [address] Results Social History Tobacco Use [...] encounter Miscellaneous Notes * Telephone Encounter - Basil GruberIsabell billings - 04/29/2013 2:46 PM MARINE HABITAT RESOURCE SPECIALIST Spoke to pt and informed of results and instructions. Pt says she hasnt had dexa done in a long time.Pt voiced understanding. Pt will go to [facility] [place] to do 24hr urine and DEXA. Requested orders bemailed to home NE HABITAT RESOURCE SPECIALIST * Telephone Encounter - Basil SimonsIsabell - 04/29/2013 2:19 PM MARINE HABITAT RESOURCE SPECIALIST Message copied by ISABELL CORDOBA on FriApr 29, 2013 2:19 PM ------ Message from: FERNANDA KUHN Created: FriApr 28, 2013 5:36 PM Patient's calcium and intact PTH levels are high confirming hyperparathyroidism. High doses of vitamin D can increase calcium levels. Needs to stop her weekly vitamin D for now. Check 24 hour urine calcium and creatinine, DEXA ( if not done recently) spine, femur neck B, distal radius. ------ NE HABITAT RESOURCE SPECIALIST documented in this encounter Plan of Treatment Upcoming Encounters Date Type Department Care Team (Late st Contact Info) Description 07/12/2024 2:30 PM MARINE HABITAT RESOURCE SPECIALIST Office Visit [facility] Oncology and Hematology - [place] [address] [facility] [address] [place] [address] Ovidio Nolen MD [address] [place] [address] documented as of this encounter Results * CALCIUM LEVEL, 24 HR URINE (05/18/2013) 24 hour urine specimen (specimen) Fernanda Kuhn MD URINE ORDERABLES [facility]# [id number] [address] [place] [address] * XR DEXA BONE DENSITY AXIAL 1 OR MORE SITES (05/07/2013 10:41 AM MARINE HABITAT RESOURCE SPECIALIST) Anatomical Region Laterality Modality Digital Radiogra phy 05/07/2013 10:2 7 AM MARINE HABITAT RESOURCE SPECIALIST Narrative 05/07/2013 11:25 AM MARINE HABITAT RESOURCE SPECIALIST XR DEXA BONE DENSITY AXIAL 1 OR MORE SITES Dictated from Location 1 ([facility]) HISTORY: 72 yo F with postmenopausal symptoms with a history of hyperparathyroidism ??needing evaluation for osteoporosis. PROCEDURE: Using a [employer] dual energy x-ray absorptiometry system, the patient's bone mineral density was measured over the lumbar spine, forearm and femurs. Comparison was made to age and sex matched normal values. The L3 and L4 vertebral bodies were excluded from bone mineral density measurements secondary to the presence of sclerotic degenerative changes. FINDINGS: Lumbar Spine ( L1-L2 ) Bone Mineral Density = 1.008 gm/cm2 ?Compared to young adult (T-score), difference of -1.3 Standard Deviations. The patient's spine BMD is osteopenic when compared to that of a young adult. ?? Left Femoral Neck Bone Mineral Density = 0.944 gm/cm2 ?Compared to young adult (T-score), difference of -0.7 Standard Deviations. The patient's left femoral neck BMD is normal when compared to that of a young adult. Right Femoral Neck Bone Mineral Density = 1.007 gm/cm2 ?Compared to young adult (T-score), difference of -0.2 Standard Deviations. The patient's right femoral neck BMD is normal when compared to that of a young adult. Left Radius 33% Bone Mineral Density = 0.853 gm/cm2 ?Compared to young adult (T-score), difference of -0.3 Standard Deviations. The patient's left Radius 33% BMD is normal when compared to that of a young adult. No prior DEXA studies are available for comparison. Procedure Note Sonny Rodgers DO - 05/07/2013 XR DEXA BONE DENSITY AXIAL 1 OR MORE SITES Dictated from Location 1 ([facility]) HISTORY: 72 yo F with postmenopausal symptoms with a history of hyperparathyroidism needing evaluation for osteoporosis. PROCEDURE: Using a [employer] dual energy x-ray absorptiometry system, the patient's bone mineral density was measured over the lumbar spine, forearm and femurs. Comparison was made to age and sex matched normal values. The L3 and L4 vertebral bodies were excluded from bone mineral density measurements secondary to the presence of sclerotic degenerative changes. FINDINGS: Lumbar Spine ( L1-L2 ) Bone [...] adult (T-score), difference of -0.3 Standard Deviations. The patient's left Radius 33% BMD is normal when compared to that of a young adult. No prior DEXA studies are available for comparison. Fernanda Kuhn MD DIAGNOSTIC IMAGING O RDERABLES * CREATININE, 24 HR URINE (05/18/2012) 24 hour urine specimen (specimen) Fernanda Kuhn MD URINE ORDERABLES [facility]# [id number] [address] [place] [address] documented in this encounter Visit Diagnoses Diagnosis Serum calcium elevated- Primary Hypercalcemia Serum calcium elevated Hypercalcemia documented in this encounter Care Teams Electrolysis Needle Operator Relationship Specialty Start Date End Date Grupo Garcia MD PCP - General Internal Medicine 08/14/10 2 documented as of this encounter
--- OUTSIDE RECORDS SUMMARY | 2024-05-26 13:19 | XMS_ITS | Encounter Summary ---
Author Organization [facility] Address [address] [place] [address] Care Team Providers Care Assembly Lead Person Name Role Phone Grupo Garcia MD Primary Care Provider Unavailab le Reason for Visit * Reason Comments Diabetes Thyroid Problem Hypercalcemia Encounter Details Date Type Department Care Team (Late st Contact Info) Description 04/28/2013 1:45 PM MACHINERY CLEANER Office Visit [facility] [address] [place] [address] Yuliya Ibarra MD [address] [place] [address] Type II or unspecified type diabetes mellitus without mention of complication, uncontrolled (Primary Dx); Hypercalcemia; Multiple thyroid nodules Social [...] Sign Reading Time Taken Comments Blood Pressure 118/72 04/28/2013 1:44 PM MACHINERY CLEANER Pulse 86 04/28/2013 1:44 PM MACHINERY CLEANER Temperature - - Respiratory Rate - - Oxygen Saturation - - Inhaled Oxygen Concentration - - Weight 90.7 kg (200 lb) 04/28/2013 1:44 PM MACHINERY CLEANER Height 165.1 cm (5' 5 ) 04/28/2013 1:44 PM MACHINERY CLEANER Body Mass Index 33.28 04/28/2013 1:44 PM MACHINERY CLEANER documented in this encounter Progress Notes * Yuliya Ibarra MD - 04/28/2013 1:50 PM CST [facility] Yuliya Ibarra MD. PCP: Dr. Grupo Garcia Vice President Of Brand Management: Dr. Alexandre Reese Neurologist: Dr. Nelson Ross Cost Recovery Technician: Dr. Krishan Moran Vascular Surgeon: Dr. Elle Landaverde Wood Heel Flap Inserter: Dr. Laz Valencia Book Repairer: Dr. Phuong Callejas. Perla Leon is a 72 y.o. female with multiple medical problems, who presents to clinic for thyroid nodule follow-up, as well as diabetes and hypercalcemia evaluation. Patient was diagnosed with multiple thyroid nodules via ultrasound. Her nodules were small enough to monitor. She is supposed to have an ultrasound around 10/2013. Patient denies changes in her neck size, dysphagia, voice changes, exposure to radiation treatments. Patient was diagnosed with DM over a year ago. Started taking Metformin about 4 months ago, could not tolerate secondary to diarrhea, stomach problems. Patient was on steroids back in 01/2013 for pneumonia, sugars never decreased once off steroids. Has not tried any other medications for DM. Checks her blood sugars once a day - in am, around 200's. Has seen a gaming investigator at [facility]. Glucometer: [employer] brand. Wants a new one. Last eye exam: 3 months ago - has glaucoma. No hypoglycemia. Goes to a quality control lab tech. Wants to avoid insulin for now if possible. Patient was found to have hypercalcemia via her last blood work in March/2013. She denies havingproblems with high calcium in the past, denies nephrolithiasis, admits to memory issues. States her demyelinating disease seem to be getting worse. Review of Systems: She denies difficulty breathing/swallowing, denies pain in the thyroid area, denies notice her thyroid gland. Her weight has been increasing steadily. She denies heat intolerance, denies cold intolerance. + leg spasms. Denies numbness or tingling in her feet. Review of Systems: General ROS: no fever, chills. Endocrine ROS: negative for polyuria/polydipsia Respiratory ROS: negative for cough, shortness of breath, or wheezing Cardiovascular ROS: negative for chest pain or dyspnea on exertion Gastrointestinal ROS: negative for reflux, abdominal pain, change in bowel habits, or black or bloody stools Musculoskeletal ROS: negative for back pain, + lymphedema Medications: Current Outpatient Prescriptions Medication Sig Dispense Refill ??? IPRATROPIUM BROMIDE INHALATION Take by inhalation [...] to check with PMD per dr flores ??? rosuvastatin (CRESTOR) 10 mg Oral tablet [...] Units by mouth every 7 days. ??? albuterol (PROVENTIL,VENTOLIN) 90 mcg/Actuation Inhalation Aero [...] History Narrative ??? No narrative on file Past Medical History: Past Medical History Diagnosis Date ??? Pneumonia just recovering ??? Seizure disorder 2001 after stroke-none since ??? CVD (cerebrovascular disease) 7513-8807 TIA x2 ??? Duodenal ulcer 1978 ??? Shingles [id number] x3 ??? Glaucoma ??? Heart murmur ??? [...] (pediatric) to bring cpap day of surgery Family history: Family History Problem Relation Age of Onset ??? Breast Cancer Mother ??? Hypertension Brother ??? High Cholesterol Brother Allergies: Allergies Allergen Reactions ??? Advair Diskus (Fluticasone-Salmeterol) Unknown ??? Aricept (Donepezil) Unknown ??? Diltiazem Unknown ??? Latex Unknown Physical Findings: BP 118/72 Pulse 86 Ht 5' 5 (1.651 m) Wt 200 lb (90.719 kg) BMI 33.28 kg/m2 General appearance: alert, well appearing, and in [...] 2+ with a normal return phase. Lab: 04/08/13 Bun /creatinine - 23/0.88 Transaminases - wnl Calcium 11.1 GFR - 63 HgA1C - 8.8% Total cholesterol - 123 Triglycerides - 288 HDL - 34 LDL 31 Assessment/Plan: 1. DM II - uncontrolled. Discussed diet and exercise as tolerated with her. Patient was seen by Kelly for dietary consult during this visit. Patient was given a new glucometer during this visit - freestyle. Start Glimepiride 4 mg twice daily. Discussed insulin pens with patient. She would like to avoid insulin for now. Patient will check her sugars once a day and send me her numbers once daily. Will plan on checking her HgA1C in 3 months. -- We had an extensive discussion in regards to the physiopathology of type 2 diabetes mellitus andthe consequences of it being chronically uncontrolled such as microvascular and macrovascular disease. -- We discussed targets in regards to b/sugars, lipids and BP to prevent end organ damage and cardiovascular disease -- We talked about the importance of b/s monitoring. 2. Hypercalcemia - discussed with patient. Discussed risks of hypercalcemia: including but not limited to renal stones, constipation, confusion, memory problems. Needs to go to ER if increased confusion, dehydration, nausea, vomiting etc Check ionized calcium, intact PTH, BMP. Discussed most likely cause of hypercalcemia, which is primary hyperparathyroidism. Patient is taking HCTZ, which can contribute to her hypercalcemia. 3. Thyroid nodules - plan on repeating thyroid ultrasound in 10/2013. Recheck TSH. Patient is to call if experiences increase in her neck size/dysphagia/dyspnea/voice changes/tremors/palpitations or other problems arise. Follow-up in 3 months or as needed. >50% of this 40 min visit was discussion/counseling. I would like to thank you for allowing me to participate in this patient's care, if you have any questions regarding my recommendations please do not hesitate to contact me at any time. Yuliya Ibarra MD INERY CLEANER * Lyssa Khan - 04/28/2013 1:44 PM CST Pt here for Thyroid F/U. Recent labs Pt has with her. INERY CLEANER documented in this encounter Plan of Treatment Upcoming Encounters Date Type Department Care Team (Late st Contact Info) Description 07/12/2024 2:30 PM MACHINERY CLEANER Office Visit [facility] [place] [facility] - [place] [address] [place] [address] Ovidio Nolen MD [address] [place] [address] documented as of this encounter Results * VITAMIN D 25 HYDROXY (04/28/2013 3:24 PM MACHINERY CLEANER) VITAMIN D, 25 OH, TOTAL 22 ng/mL [facility] Comment: Therapy is based on measurement of Total 25-OHD, with levels <20 ng/mL indicative of Vitamin D deficiency, while levels between 20 ng/mL and 30 ng/mL suggest insufficiency. ??Optimal levels are > or = 30 ng/mL. Similarly, the US National Kidney Foundation considers levels <30 ng/mL to be insufficient or deficient. ??The preferred level for Vitamin D (25-OH) by many experts is now recommended to be >/= 30 ng/mL. Blood specimen (specimen) 04/28/2013 3:24 PM MACHINERY CLEANER 04/28/2013 3:41 PM MACHINERY CLEANER Yuliya Ibarra MD CHEMISTRY ORDERABLES [facility] Chance (app) [facility] CLIA# [id number] [address] [place] [address] * (ABNORMAL) TSH (04/28/2013 3:24 PM MACHINERY CLEANER) TSH 5.22(H) 0.27 - 4.20 uU/mL [facility] Blood specimen (specimen) 04/28/2013 3:24 PM MACHINERY CLEANER 04/28/2013 3:41 PM MACHINERY CLEANER Yuliya Ibarra MD CHEMISTRY ORDERABLES [facility] CLIA# [id number] [address] [place] [address] * (ABNORMAL) BASIC METABOLIC PANEL (04/28/2013 3:24 PM MACHINERY CLEANER) CALCIUM 11.5(H) 8.6 - 10.2 mg/dL [facility] SODIUM 140 135 - 145 mmol/L [facility] POTASSIUM 3.9 3.5 - 4.9 mmol/L [facility] CHLORIDE 101 96 - 108 mmol/L [facility] CO2 27 22 - 30 mmol/L [facility] BUN 20 6 - 20 mg/dL [facility] CREATININE 0.84 0.51 - 0.95 mg/dL [facility] GLUCOSE 231(H) 65 - 99 mg/dL [facility] GFR, >60 >=60 mL/min/1. 7 sq meter [facility] GFR >60 >=60 mL/min/1. 7 sq meter [facility] Comment: GFR is calculated using the IDMS-Traceable Modification of Diet in Renal Disease (MDRD) Study formula and is only valid for patients 18 years or older. Further interpretative information is available in the Laboratory Services Policy Manual on the [facility] Intranet at: [email or web address] Blood specimen (specimen) 04/28/2013 3:24 PM MACHINERY CLEANER 04/28/2013 3:41 PM MACHINERY CLEANER Yuliya Ibarra MD [facility]STRY [facility]ABLES [id number] [address] [place] [address] * (ABNORMAL) CALCIUM IONIZED (04/28/2013 3:24 PM MACHINERY CLEANER) CALCIUM IONIZED 5.53(H) 4.76 - 5.16 mg/dL [facility] Blood specimen (specimen) 04/28/2013 3:24 PM MACHINERY CLEANER 04/28/2013 3:41 PM MACHINERY CLEANER Comment:BLOOD Yuliya Ibarra MD CHEMISTRY ORDERABLES Performing Organization Address [facility]/ZIP Co de Phone Number [facility] Chance (app) [id number] [address] [place] [address] * (ABNORMAL) PTH INTACT (04/28/2013 3:24 PM MACHINERY CLEANER) CALCIUM 11.5(H) 8.6 - 10.2 mg/dL [facility] Chance (app) [facility] PTH INTACT 75(H) 15 - 65 pg/mL [facility] Chance (app) [facility] Blood specimen (specimen) 04/28/2013 3:24 PM MACHINERY CLEANER 04/28/2013 3:41 PM MACHINERY CLEANER Yuliya Ibarra MD CHEMISTRY ORDERABLES Performing Organization Address [facility] Co de Phone Number [facility] Chance (app) [facility]# [id number] [address] [place] [address] documented in this encounter Visit Diagnoses Diagnosis Type II or unspecified type diabetes mellitus without mention of complication, uncontrolled- Primary Hypercalcemia Multiple thyroid nodules Nontoxic multinodular goiter documented in this encounter Care Teams Assembly Lead Person Relationship Specialty Start Date End Date Grupo Garcia MD PCP - General Internal Medicine 08/14/10 06/22/15 documented as of this encounter
--- OUTSIDE RECORDS SUMMARY | 2024-05-26 13:19 | XMS_ITS | Encounter Summary ---
Author Organization [facility] Address [address] [place] [address] Care Team Providers Care Package Wrapper Name Role Phone Grupo Garcia MD Primary Care Provider Unavailab le Encounter Details Date Type Department Care Team (Late st Contact Info) Description 08/22/2010 12:31 PM CDT - 08/22/2010 11:59 PM CDT Hospital Encounter [facility] [address] [place] [address] Jack Mcdaniel MD [address] [place] [address] Discharge Disposition: Home or Self Care Social [...] Sign Reading Time Taken Comments Blood Pressure 131/68 08/22/2010 1:51 PM CDT Pulse 83 08/22/2010 1:51 PM CDT Temperature - - Respiratory Rate - - Oxygen Saturation 97% 08/22/2010 1:51 PM CDT Inhaled Oxygen Concentration - - Weight 87.1 kg (192 lb) 08/22/2010 1:51 PM CDT Height 165.1 cm (5' 5 ) 08/22/2010 1:51 PM CDT Body Mass Index 31.95 08/22/2010 1:51 PM CDT documented in this encounter Medications at Time [...] Take 1,000 mcg by mouth daily. multivitamin (DAILY-RBYON) Oral tabletIndications:instr ucted to stop prior to [...] frequency 05/06/2012 documented as of this encounter Procedure Notes * [facility] - 09/13/2010 7:51 AM CDTAssociated Order(s): EKG 12-LEAD * [facility] - 08/24/2010 9:28 AM CDTAssociated Order(s): EKG 12-LEAD documented in this encounter OR Notes * OR Anesthesia - Sonny Jimenes PA - 08/22/2010 1:57 PM CDT Pre-Procedure Anesthesiology Consultation and Evaluation (PACE) Service 08/22/2010 1:58 PM Name: LOC ANDERSON Age: 69 y.o. Sex: female CSN: [id number] Procedure: Sacrospinous Ligament Fixation-N/A LATEX Cystocele Or Enterocele Or Rectocele Repair-N/ABladder Suspension Sling Insertion-N/A S/P TUBE Anterior Posterior Repair-N/A Perineoplasty-N/A Surgeons/Assistants: *Jonas* .ptame No Known Allergies Current outpatient prescriptions Medication Sig Dispense Refill ??? esomeprazole (NEXIUM) 40 mg Oral CpDR [...] Indications: to check with PMD per dr mcdaniel ??? rosuvastatin (CRESTOR) 10 mg Oral tablet [...] needed. Indications: hasn't used in one year Told patient to take the following medications AM DOS with small sip of water: Diovan, Nexium, Told patient to stop the following medications on : nsaids Asa and Plavix as per Dr. Garcia who will be calling pt. At home today There are no active problems to display for this patient. Past Medical History Diagnosis Date ??? Pneumonia just recovering ??? Seizure disorder 2001 after stroke-none since ??? CVD (cerebrovascular disease) 5508-6749 TIA x2 ??? Duodenal ulcer 1978 ??? Shingles [id number] x3 ??? Glaucoma ??? Heart murmur ??? [...] 2009-[facility] ??? Hx knee arthroscopy [id number] right knee ??? Hx heart catheterization 2002 dr. Valencia ??? Hx surgical other 1985 surgery for broken nose History Substance Use Topics ??? Smoking status: Never Smoker ??? Smokeless tobacco: Not on file ??? Alcohol Use: No No family history on file. Previous Anesthesia Problems/Concerns: No anesthesia problems/complications History of PONV No Review of Systems Cardiovascular: negative for chest pain, chest pressure/discomfort, exertional chest pressure/discomfort, palpitations, shortness of breath/dyspnea. Exercise Tolerance: able to go for walks and steps without chest pain or SOB Gastrointestinal: positive for reflux symptoms. Genitourinary:negative. Respiratory: positive for well controlled asthma, resolving bronchitis. CATY -yes uses CPAP Snoring-yes Musculoskeletal: positive for arthralgias, stiff joints and back pain Neurological: positive for TIA also has a demyelanating disease causing LE weakness Endocrine positive for diabetes, Renal negative Hematology/Oncology:negaitve PHYSICAL EXAM BP 131/68 Pulse 83 Ht 5' 5 (1.651 m) Wt 192 lb (87.091 kg) BMI 31.95 kg/m2 SpO2 97% Weight: Weight: 192 lb (87.091 kg) (08/22/10 1351) Height: Ht Readings from Last 1 Encounters: 08/22/2010 5' 5 (1.651 m) BMI: Body mass index is 31.95 kg/(m^2). General Appearance: Alert, oriented, no acute distress Airway: normal range of motion; Airway Class: III (soft palate, base of uvula visible); Special Considerations None Dentition: Normal good Lungs: clear to auscultation bilaterally, normal respiratory effort Heart: regular rate and rhythm, S1, S2 normal, no murmur, click, rub or gallop Neuro: alert, oriented x 3, no defects noted in general exam. Extremities: extremities normal, atraumatic, no cyanosis or edema LABS No results found for this basename: WBC, MANUALWBC, HGB, HGBPOC, HCT, HCTPOC, PLT, MCV No results found for this basename: NA, K, CL, CO2, CA, BUN, CREAT, GLUCOSE, ANIONGAP, BCRATIO No results found for this basename: INR, PT, PROTIMEPOC No results found for this basename: HCGURPOC, HCGQUALUR, HCGQUAL, HCGQUANT, HCGINTACT EK/11 sinus rhythm LAD non-specific IVCD Other Studies/Considerations: Cardiac studies 07/27 Cardiac Stress Anterior/Apical wall ischemia Normal LVF EF 65% Risks/Alternatives discussed. Questions solicited and answered. Yes Postop pain management discussed yes Smoking/Tobacco Counseling: None Recommendations:None REPORT AND NECESSARY FOLLOW-UP History and physical performed in [place]; tests (ECG, blood work) reviewed. Abnormal Results Found: + Stress 07/27 Further Testing or Evaluation Required: Letter to director pediatric, Also discussed pt. Resolving bronchitis/pneumonia to continue antibiotics, and obtaining CXR today looking for resolution. Surgery could be postponed due to unresolved pneumonia. Final [place] Center Review: May proceed with procedure/surgery: no LANNY Parnell * Erica-OP - Kierra Sampson RN - 08/22/2010 1:19 PM CDT Patient instructed to bring their C-PAP machine with them the day of surgery. documented in this encounter Miscellaneous Notes * Scanned Form - [facility] - 09/04/2010 2:24 PM CDT documented in this encounter Plan of Treatment Upcoming Encounters Date Type Department Care Team (Late st Contact Info) Description 07/12/2024 2:30 PM RIP TAILER Office Visit [facility] Oncology and Hematology - [place] [address] [facility] [address] [place] [address] Ovidio Nolen MD [address] [place] [address] documented as of this encounter Procedures Procedure Name Priority Date/Time Associated Diagnosis Comments EKG 12-LEAD Routine 09/13/2010 7:51 AM CDT XR CHEST PA AND LATERAL 2 VW Routine 08/22/2010 2:39 PM CDT CBC WITH DIFFERENTIAL Routine 08/22/2010 1:45 PM CDT TYPE AND SCREEN Routine 08/22/2010 1:45 PM CDT BASIC METABOLIC PANEL Routine 08/22/2010 1:45 PM CDT documented in this encounter Results * EKG 12-LEAD (09/13/2010 7:51 AM CDT) Narrative Transcriptions [facility] - 08/24/2010 9:28 AM CDT [facility] - 09/13/2010 7:51 AM CDT Jack Mcdaniel MD ECG ORDERABLES * XR CHEST PA AND LATERAL (08/22/2010 [...] Jack Mcdaniel MD DIAGNOSTIC IMAG ING ORDERABLES * TYPE AND SCREEN (08/22/2010 1:45 PM CDT) Pathologist [facility] HISTORY CHECK No Historical ABO/Rh [facility] SPECIMEN LIFE 3 days from OR date [facility] ABO/RH TYPE O Positive [facility] ANTIBODY SCREEN Negative [facility] Blood specimen (specimen) 08/22/2010 1:45 PM CDT 08/22/2010 2:54 PM CDT Jack Mcdaniel MD BLOOD BANK ROWAN QUIROZ [facility] Organization Address City/State/ZIP Co de Phone Number INTERFACE SYSTEM Refer to clinic/hospital department [facility] CLIA# [id number] [address] [facility] [place] [address] * (ABNORMAL) BASIC METABOLIC PANEL (08/22/2010 1:45 PM CDT) SODIUM 142 135 - 145 mmol/L [facility] POTASSIUM 3.5 3.5 - 4.9 mmol/L [facility] CHLORIDE 106 96 - 108 mmol/L [facility] CO2 28 22 - 30 mmol/L [facility] CALCIUM 10.2 8.6 - 10.2 mg/dL [facility] BUN 18 6 - 20 mg/dL [facility] CREATININE 0.76 0.51 - 0.95 mg/dL [facility] GLUCOSE 136(H) 65 - 99 mg/dL [facility] GFR, >60 >=60 mL/min/1. 7 sq meter [facility] GFR >60 >=60 mL/min/1. 7 sq meter [facility] Comment: Modification of Diet in Renal Disease (MDRD) study formula. Estimated GFR rate interpretative information for both Americans and non- Americans is available on the [facility] Intranet at: [email or web address] Select: Lab Policies and Procedures Select: Reference Ranges - GFR Blood specimen (specimen) 08/22/2010 1:45 PM CDT 08/22/2010 2:54 PM CDT Narrative [facility] - 08/22/2010 3:31 PM CDT Room 4 Jack Mcdaniel MD CHEMISTRY ORDER FLAVIO [facility] CLIA# [id number] [address] [place] [address] * CBC WITH DIFFERENTIAL (08/22/2010 1:45 PM CDT) WBC 5.7 4.0 - 9.8 K/uL [facility] RBC 4.46 3.90 - 4.90 M/uL [facility] HEMOGLOBIN 13.3 11.8 - 14.8 g/dL [facility] HEMATOCRIT 40.1 35.5 - 44.0 % [facility] MCV 89.9 82.0 - 99.0 fL [facility] MCH 29.8 27.2 - 32.6 pg [facility] MCHC 33.2 31.5 - 35.5 % [facility] PLATELETS 308 140 - 350 K/uL [facility] MPV 11.2 9.3 - 12.4 fL [facility] RDW 13.8 11.5 - 14.5 % [facility] RDW-STDEV 45.3 37.1 - 48.7 fL [facility] NEUTROPHILS 62 45 - 70 % [facility] LYMPHOCYTES 26 16 - 45 % [facility] MONOCYTES 9 3 - 13 % [facility] EOSINOPHILS 3 0 - 7 % [facility] BASOPHILS 0 0 - 2 % [facility] NEUTROPHIL ABSOLUTE 3.53 1.90 - 7.00 K/uL [facility] LYMPHOCYTE ABSOLUTE 1.50 0.70 - 4.50 K/uL [facility] MONOCYTE ABSOLUTE 0.51 0.10 - 1.30 K/uL [facility] EOSINOPHIL ABSOLUTE 0.17 0.00 - 0.70 K/uL [facility] BASOPHILS ABSOLUTE 0.02 0.00 - 0.20 K/uL [facility] Blood specimen (specimen) 08/22/2010 1:45 PM CDT 08/22/2010 2:54 PM CDT Jack Mcdaniel MD HEMATOLOGY ROWAN QUIROZ [facility] CLIA# [id number] [address] [place], [place] [address] documented in this encounter Visit Diagnoses Not on filedocumented in this encounter Care Teams Package Wrapper Relationship Specialty Start Date End Date Grupo Garcia MD PCP - General Internal Medicine 08/14/10 2 documented as of this encounter
--- OUTSIDE RECORDS SUMMARY | 2024-05-26 13:19 | XMS_ITS | Encounter Summary ---
Author Organization [facility] Address [address] [place] [address] Care Team Providers Care Support Staff Name Role Phone Grupo Garcia MD Primary Care Provider Unavailab le Encounter Details Date Type Department Care Team (Latest Contact Info) Description 04/28/2013 3:10 PM [facility] - 04/28/2013 11:59 PM [facility] Hospital Encounter [facility] Laboratory Services Medical [place] A [address] [place] [address] Yuliya Ibarra MD [address] [place] [address] Discharge Disposition: Home or [...] to stop prior to surgery glimepiride (AMARYL) 4 mg tabletIndications:Type II or unspecified type diabetes mellitus without mention of complication, uncontrolled Take 1 Tab by mouth daily with breakfast. 60 Tab 4 04/28/2013 06/07/2013 FREESTYLE LITE STRIPS Strip Check once a day alternating before breakfast or before dinner 100 Strip 1 04/28/2013 07/12/2013 valsartan (DIOVAN) 80 mg Oral tablet Take [...] st Contact Info) Description 07/12/2024 2:30 PM [facility]OG HAND[facility]ER Office Visit [facility] Oncology and Hematology - [place] [address] [facility] [address] [place] [address] Ovidio Nolen MD [address] [place] [address] documented as of this encounter Procedures Procedure Name Priority Date/Time Associated Diagnosis Comments VITAMIN D 25 HYDROXY Routine 04/28/2013 3:24 PM [facility]ER Hypercalcemia TSH Routine 04/28/2013 3:24 PM [facility] Type II or unspecified type diabetes mellitus without mention of complication, uncontrolled PTH INTACT Routine 04/28/2013 3:24 PM [facility]OG HAND[facility]ER Hypercalcemia CALCIUM IONIZED Routine 04/28/2013 3:24 PM [facility]OG HAND[facility]ER Hypercalcemia BASIC METABOLIC PANEL Routine 04/28/2013 3:24 PM [facility]OG HANDLER Hypercalcemia documented in this encounter Results * (ABNORMAL) TSH (04/28/2013 3:24 PM HOG HANDLER) TSH 5.22(H) 0.27 - 4.20 uU/mL [facility] Blood specimen (specimen) 04/28/2013 3:24 PM HOG HANDLER 04/28/2013 3:41 PM [facility]OG HAND[facility]ER Yuliya Ibarra MD CHEMISTRY ORDERABLES [facility] CLIA# [id number] [address] [place], [place] [address] * (ABNORMAL) BASIC METABOLIC PANEL (04/28/2013 3:24 PM HOG HANDLER) Pathologist [facility] CALCIUM 11.5(H) 8.6 - 10.2 mg/dL [facility] SODIUM 140 135 - 145 mmol/L [facility] POTASSIUM 3.9 3.5 - 4.9 mmol/L [facility] CHLORIDE 101 96 - 108 mmol/L [facility] CO2 27 22 - 30 mmol/L [facility] BUN 20 6 - 20 mg/dL [facility] CREATININE 0.84 0.51 - 0.95 mg/dL [facility] GLUCOSE 231(H) 65 - 99 mg/dL [facility] GFR, >60 >=60 mL/min/1. 7 sq meter [facility] GFR >60 >=60 mL/min/1. 7 sq meter [facility] Comment: GFR is calculated using the IDMS-Traceable Modification of Diet in Renal Disease (MDRD) Study formula and is only valid for patients 18 years or older. Further interpretative information is available in the Laboratory Services Policy Manual on the [facility] Intranet at: [email or web address] Blood specimen (specimen) 04/28/2013 3:24 PM HOG HANDLER 04/28/2013 3:41 PM [facility]OG HAND[facility]ER Yuliya Ibarra MD CHEMISTRY ORDERABLES Performing Organization Address [facility]/ZIP Co de Phone Number [facility]# [id number] [address] [place] [address] * (ABNORMAL) CALCIUM IONIZED (04/28/2013 3:24 PM HOG HANDLER) CALCIUM IONIZED 5.53(H) 4.76 - 5.16 mg/dL [facility] Blood specimen (specimen) 04/28/2013 3:24 PM HOG HANDLER 04/28/2013 3:41 PM [facility]ER Comment:BLOOD Yuliya Ibarra MD CHEMISTRY ORDERABLES Performing Organization Address [facility] Co de Phone Number [facility] [employer] [facility]# [id number] [address] [place] [address] * (ABNORMAL) PTH INTACT (04/28/2013 3:24 PM HOG HANDLER) CALCIUM 11.5(H) 8.6 - 10.2 mg/dL [facility] PTH INTACT 75(H) 15 - 65 pg/mL [facility] Blood specimen (specimen) 04/28/2013 3:24 PM HOG HANDLER 04/28/2013 3:41 PM HOG HANDLER Yuliya Ibarra MD CHEMISTRY ORDERABLES Performing Organization Address [facility]/ZIP Co de Phone Number [facility] [employer] [facility]# [id number] [address] [place] [address] * VITAMIN D 25 HYDROXY (04/28/2013 3:24 PM HOG HANDLER) VITAMIN D, 25 OH, TOTAL 22 ng/mL [facility] Comment: Therapy is based on measurement of [...] ng/mL. Blood specimen (specimen) 04/28/2013 3:24 PM HOG HANDLER 04/28/2013 3:41 PM HOG HANDLER Yuliya Ibarra MD CHEMISTRY ORDERABLES Performing Organization Address [facility] Co de Phone Number [facility]# [id number] [address] [place] [address] documented in this encounter Visit Diagnoses Diagnosis Hypercalcemia Type II or unspecified type diabetes mellitus without mention of complication, uncontrolled documented in this encounter Care Teams Support Staff Relationship Specialty Start Date End Date Grupo Garcia MD PCP - General Internal Medicine 08/14/10 06/22/15 documented as of this encounter
--- OUTSIDE RECORDS SUMMARY | 2024-05-26 13:19 | XMS_ITS | Encounter Summary ---
Author Organization [facility] Address [address] [place] [address] Care Team Providers Care Meals On Wheels Driver Name Role Phone Grupo Garcia MD Primary Care Provider Unavailab le Reason for Visit * Auth/Cert - Closed Specialty Diagnoses / Procedures Referred By Alejandrina vale Referred To Contact General Surgery Diagnoses CYSTOCELE, RECTOCELE Procedures SACROSPINOUS LIGAMENT FIXATION [facility] Or [address] [place] [address] Referral ID Status Reason Start Date Expiration Date Visits Re quested Visits Authorized [id number] Closed 08/14/2010 02/10/2011 1 Encounter Details Date Type Department Care Team (Late st Contact Info) Description 09/10/2010 2:45 PM CDT - 09/10/2010 5:35 PM CDT Surgery [facility] Operating Room [address] [place] [address] Jack Mcdaniel MD [address] [facility] [address] [address] SACROSPINOUS LIGAMENT FIXATION Surgery Details Date/Time Status Location OR Service Patient Class Case Class Case Type Trauma Case? 09/10/2010 2:45 PM Posted [facility] OR MAIN OR Gynecology Surgery Admit Elective No Panel 1 Procedure LRB Anes Op Region Wound Class Comments SACROSPINOUS LIGAMENT FIXATION N/A General Perineum Clean Contaminated-II SACROSPINOUS COLPOPEXY CYSTOCELE REPAIR N/A Bladder Clean Contaminated-II ANTERIOR POSTERIOR REPAIR N/A Vagina Clean Contaminated-II PERINEOPLASTY N/A Perineum Clean Contaminated-II RECTOCELE REPAIR N/A General Clean Contaminated-II ENTEROCELE REPAIR VAGINAL APPROACH N/A General Clean Contaminated-II Surgeon Surgeon Role Service Panel Jack Mcdaniel MD Primary Gynecology 1 documented in this encounter Social History [...] Reading Time Taken Comments Blood Pressure 136/68 09/10/2010 5:30 PM CDT Pulse 88 09/10/2010 5:30 PM CDT Temperature 36.6 ??C (97.8 ??F) 09/10/2010 5:00 PM CD T Respiratory Rate 16 09/10/2010 5:30 PM CDT Oxygen Saturation 98% 09/10/2010 5:30 PM CDT Inhaled Oxygen Concentration - - Weight 87.1 kg (192 lb) 08/22/2010 1:50 PM CDT Height 165.1 cm (5' 5 ) 08/22/2010 1:50 PM CDT Body Mass Index 31.5 08/22/2010 1:51 PM CDT documented in this encounter Discharge Summaries * Lyssa Macario MD - 09/11/2010 2:45 PM CDT DATE OF ADMISSION 09/10/2010 DATE OF DISCHARGE 09/11/2010 ADMITTING DIAGNOSIS Genuine Stress Urinary Incontienence, Cystocele, Rectocele, Absent Perineum DISCHARGE DIAGNOSIS Same PROCEDURES Cystocele Repair, Anterior Colporrhapy, Rectocele Repair, Posterior Colporrhapy HOSPITAL COURSE The patient was admitted to [facility] and underwent reconstructive surgery ofthe above procedures. The patient had an unremarkable post-operative hospital course. She was tolerating regular diet and ambulating at her baseline prior to discharge. On the day of discharge, the patient was instructed on care of her urethral catheter. DISCHARGE INSTRUCTIONS The patient is to follow-up in 6 weeks in the office. The patient will be contacted by my office regarding her voiding diary and removal of the urethral catheter. She is to call the exchange/office for any concerns, no matter how unrelated to the reconstructive surgery. Call the exchange/office fortemperature greater than 100.6 as well as for vaginal bleeding. MEDICATIONS ON DISCHARGE Levaquin 500 mg daily #10- no refills, Colace 100 mg twice daily #60- 6 refills, Percocet 5/325 one-two tabs every 6 hrs as needed #20- no refills, Premarin vaginal cream twice weekly at bedtime- 6 refills documented in this encounter Discharge Instructions * Discharge Instructions* Radha Zepeda RN - 09/11/2010 3:28 PM CDT DISCHARGE INSTRUCTIONS The patient is to follow-up in 6 weeks in the office. The patient will be contacted by my office regarding her voiding diary and removal of the urethral catheter. She is to call the exchange/office for any concerns, no matter how unrelated to the reconstructive surgery. Call the exchange/office fortemperature greater than 100.6 as well as for vaginal bleeding. MEDICATIONS ON DISCHARGE Levaquin 500 mg daily #10- no refills, Colace 100 mg twice daily #60- 6 refills, Percocet 5/325 one-two tabs every 6 hrs as needed #20- no refills, Premarin vaginal cream twice weekly at bedtime- 6 refills documented in this encounter Medications at Time [...] 9 days. 9 Tab 0 09/11/2010 09/20/2010 valsartan (DIOVAN) 80 mg Oral tablet Take 80 mg by mouth daily. 06/21/2016 potassium chloride (KLOR-CON 10) 10 mEq Oral TbSRIndications:takes two tabs in the am Take 10 mEq by mouth daily with breakfast. Indications: takes two tabs in the am 08/22/2010 12/08/2014 OTHER Provider please include Medication name, dose, route and frequency 05/06/2012 documented as of this encounter Progress Notes * Radha Zepeda RN - 09/11/2010 3:[address] Macario in to complete discharge instructions. Discharge instructions and home medications reviewed. Patient educated on use of plugged olivas and able to return demonstration. Patient discharged via wheelchair, with spouse, to home care. Patient had discharge instructions and prescriptions in hand, and personal effects. * Lyssa Macario MD - 09/11/2010 7:24 AM CDT Postop Progress Note Subjective: Hospital Day #1 Postop Day #1: s/p sacrospinous colpopexy, enterocele repair, cystocele repair, rectocele repair, anterior colporrhaphy, posterior colporrhaphy, and colpoperineorrhaphy. The patient feels well. Pain is well controlled with current medications. No chills, chest pain, SOB, N/V. Not yet ambulating. Tolerating regular diet. Objective: Blood pressure 127/61, pulse 84, temperature 98.2 ??F (36.8 ??C), temperature source Temporal, resp. rate 11, height 5' 5 (1.651 m), weight 189 lb 4.8 oz (85.866 kg), SpO2 96.00%. Intake/Output Summary (Last 24 hours) at 09/11/10 0724 Last data filed at 09/11/10 0545 Gross per 24 hour Intake 2660 ml Output 1050 ml Net 1610 ml General: alert, in no distress Heart: RRR. Lungs Clear to auscultation bilateral Abdomen: soft, nontender, nondistended, no rebound/guarding and positive bowel sounds Extr: nontender, no edema Assessment/Plan: LOC ANDERSON is a 69 y.o. female Status post sacrospinous colpopexy, enterocele repair, cystocele repair, rectocele repair, anterior colporrhaphy, posterior colporrhaphy, and colpoperineorrhaphy.. 1 - Doing well postoperatively.. -Afebrile, Vital signs stable, -UOP clear and adequate. Olivas care teaching this a.m. -tolerating regular diet 2 - Continue routine post-op care. -DVT ppx: SCDs, ambulation 3 - Type 2 DM -diet controlled 4 - CATY -CPAP 5 - HTN, hyperlipidemia, and Ischemic Heart Disease -home meds restarted today. 6 - Home today, possibly tomorrow, depending on progress. Lyssa Macario MD, PGY-2 Reinforcing Steel Erector documented in this encounter H&P Notes * [facility] - 09/12/2010 8:39 PM CDT documented in this encounter Procedure Notes * [facility] - 09/12/2010 8:39 PM CDTAssociated Order(s): TELEMETRY REPORT documented in this encounter Consult Notes * [facility] - 09/12/2010 8:39 PM CDT documented in this encounter OR Notes * OR Anesthesia - [facility] - 09/12/2010 8:39 PM CDT * OR Anesthesia - Alexandre Burns AA-C - 09/11/2010 8:18 AM CDT 09/11/2010 8:19 AM LOC ANDERSON No apparent Anesthesia related complications TATUM Young * OR Anesthesia - Quentin Saul MD - 09/10/2010 5:51 PM CDT Phase I Postanesthesia Evaluation Including Modified Cheryl Score Patient seen and evaluated: RESPIRATORY FUNCTION: Respiration: able to breath and cough freely (09/10/101699) [2=able to breathe and cough freely, 1=dyspnea, limited breathing or tachypnea, 0=apnea or mechanicventilator] O2 Saturation: needs O2 inhalation to maintain O2 saturation greater than 90% (09/10/101699) [2=able to maintain O2 saturation greater than 92% on room air, 1=needs O2 inhalation to maintain O2 saturation greater than 90%, 0=O2 saturation less than 90% even with O2 supplement] Resp: 18 (09/10/101744)SpO2: 94 % (09/10/101744) CARDIOVASCULAR FUNCTION: BP: 121/65 mmHg (09/10/101744) Circulation: BP within 20% of preanesthetic level (09/10/101699) [2=BP within 20% of preanesthetic level, 1=BP within 20-49% of preanesthetic level, 0=BP within 50%of preanesthetic level] MENTAL STATUS, NEURO, ACTIVITY: Consciousness: fully awake (09/10/101699) [2=fully awake, 1=arousable on calling, 0=not responding] Activity: able to move 4 extremities voluntarily or on command (09/10/101699) [2=able to move 4 extremities voluntarily or on command, 1=able to move 2 extremities voluntarily or on command, 0=unable to move extremities voluntarily or on command] TEMPERATURE: Temp: 97.8 ??F (36.6 ??C) (09/10/101699) PAIN: Pain Rating: Rest: 5 (09/10/101744) Presence of Pain: denies pain/discomfort (09/10/101699) NAUSEA AND VOMITING: POSTOPERATIVE HYDRATION: Intake/Output Summary (Last 24 hours) at 09/10/101751 Last data filed at 09/10/101699 Gross per 24 hour Intake 1700 ml Output 100 ml Net 1600 ml Modified Cheryl Score: Score: 9 (09/10/101699) COMMENTS: No apparent Anesthesia related complications Quentin Saul MD 09/10/2010 5:52 PM Phase I Postanesthesia Evaluation Including Modified Cheryl Score Patient seen and evaluated: RESPIRATORY FUNCTION: Respiration: able to breath and cough freely (09/10/101699) [2=able to breathe and cough freely, 1=dyspnea, limited breathing or tachypnea, 0=apnea or mechanicventilator] O2 Saturation: needs O2 inhalation to maintain O2 saturation greater than 90% (09/10/101699) [2=able to maintain O2 saturation greater than 92% on room air, 1=needs O2 inhalation to maintain O2 saturation greater than 90%, 0=O2 saturation less than 90% even with O2 supplement] Resp: 18 (09/10/101744)SpO2: 94 % (09/10/101744) CARDIOVASCULAR FUNCTION: BP: 121/65 mmHg (09/10/101744) Circulation: BP within 20% of preanesthetic level (09/10/101699) [2=BP within 20% of preanesthetic level, 1=BP within 20-49% of preanesthetic level, 0=BP within 50%of preanesthetic level] MENTAL STATUS, NEURO, ACTIVITY: Consciousness: fully awake (09/10/101699) [2=fully awake, 1=arousable on calling, 0=not responding] Activity: able to move 4 extremities voluntarily or on command (09/10/101699) [2=able to move 4 extremities voluntarily or on command, 1=able to move 2 extremities voluntarily or on command, 0=unable to move extremities voluntarily or on command] TEMPERATURE: Temp: 97.8 ??F (36.6 ??C) (09/10/101699) PAIN: Pain Rating: Rest: 5 (09/10/101744) Presence of Pain: denies pain/discomfort (09/10/101699) NAUSEA AND VOMITING: POSTOPERATIVE HYDRATION: Intake/Output Summary (Last 24 hours) at 09/10/101751 Last data filed at 09/10/101699 Gross per 24 hour Intake 1700 ml Output 100 ml Net 1600 ml Modified Cheryl Score: Score: 9 (09/10/101699) COMMENTS: No apparent Anesthesia related complications Quentin Saul MD 09/10/2010 5:52 PM * Operative Report - Jack Mcdaniel MD - 09/10/2010 4:57 PM CDT Images from the original note were not included. OPERATIVE REPORT [facility] [place], [place] [address] cc: Jack Mcdaniel MD SURGEON Jack Mcdaniel MD HTML WEB DEVELOPER Jeffrey Macario MD PREOPERATIVE DIAGNOSIS Post-hysterectomy vaginal vault prolapse, enterocele, cystocele and rectocele, absent perineum. POSTOPERATIVE DIAGNOSIS Same NAME OF OPERATION Sacrospinous colpopexy, enterocele repair, cystocele repair, rectocele repair, anterior colporrhaphy, posterior colporrhaphy, and colpoperineorrhaphy. ANESTHESIA General endotracheal. ANESTHESIOLOGIST ESTIMATED BLOOD LOSS 300 cc DRAINS Olivas to gravity SPECIMENS None COMPLICATIONS None TECHNICAL REPORT The patient was taken to the operating room and placed on the operating room table in comfortable supine position. Following an adequate level of general endotrachael anesthesia, the patient was repositioned in the modified doral lithotomy position and prepped and draped in the usual manner for a combined abdomino-vaginal surgery. Two Jay clamps were then placed at the 5:00 and 7:00 position at the level of the hymenal ring. A V-shaped incision was made between these two Kochers and the skin was dissected off the perineum and rectum until the rectovaginal space was reached for the full extent of the posterior vaginal wall. The enterocele sac was identified, opened and a pursestring ligation was performed incorporating the uteroscral ligatments in the enterocele repair with a pursestring suture of #0 Novofil. The secondpursestring suture was also placed. The excess enterocele sac was excised. The right pararectal space was opened and the mesh was passed through the coccygeos-sacrospinous ligament complex. The Olivas catheter was then inserted and noted to be draining clear yellow urine. Two Allis clamps were placed on the anterior vaginal and an incision was made in the anterior vaginal wall entering the vesicovaginal space for the full extent of the anterior vaginal wall. The cystocele was dissectedcephalad, caudad and laterally. The cystocele repair was then performed with a running suture of #2-0 Dexon. Excess anterior vaginal wall was excised and the anterior vaginal wall was closed with a running suture of #2-0 Dexon. The site of the new vaginal apex was chosen and the mesh was secured to the vaginal apex with #2-0 Dexon. The posterior vaginal wall closure was initiated with a suture of # 2-0 Dexon. When one-half of the posterior vaginal wall was closed the vagina was elevated. The rectocele was repaired with a running locked layer of #2-0 Dexon followed by a second imbricating layer of #2-0 Dexon. The perineum was reconstructed with interrupted sutures of #2-0 Dexon. The suture used to close the posterior vaginal wall was taken down to the level of the hymenal ring and then brought down as a deep subcutaneous suture and returned toward the vagina as a subcuticular suture. The needle, sponge and instrument counts were correct times two. The vagina was lightly packed with Iodoform gauze packing. The Olivas was connected to gravity drainage and the patient was transferred to the recovery room inexcellent condition. Dictated by: MD Jack Coffman MD * Erica-OP - Iliana Orr RN - 09/10/2010 2:52 PM CDT Intra-Op Medications Bupivacaine (MARCAINE, SENSORCAINE) 0.5% with Epinephrine 1:200,000 Injection @ operative site(s), mL given. Normal Saline 0.9% 1,000 mL for irrigation. Questionable latex allergy per patient interview. Latex allergy precautions followed Pt's BLE skin slightly reddened below the knees preoperatively. Report called to recovery at 1655 * OR Anesthesia - Brandi Hernández MD - 09/10/2010 1:08 PM CDT Pre-Anesthesia Evaluation - Long Form 09/10/2010 1:08 PM Name: LOC ANDERSON Age: 69 y.o. Sex: female [facility]: [id number] Procedure: Procedure(s): SACROSPINOUS LIGAMENT FIXATION CYSTOCELE OR ENTEROCELE OR RECTOCELE REPAIR BLADDER SUSPENSION SLING INSERTION ANTERIOR POSTERIOR REPAIR PERINEOPLASTY Surgeons/Assistants: Surgeon(s) and Role: * Jack Mcdaniel MD - Primary No Known Allergies Prescriptions prior to admission Medication Sig Dispense Refill ??? levofloxacin (LEVAQUIN) 500 mg Oral tablet Take 500 mg by mouth daily. ??? esomeprazole (NEXIUM) 40 mg Oral CpDR Take 40 mg by mouth daily before breakfast. ??? valsartan (DIOVAN) 80 mg Oral tablet Take 80 mg by mouth daily. ??? triamterene-hydrochlorothiazide (MAXZIDE) 75-50 mg Oral tablet Take 1 Tab by mouth daily. ??? clopidogrel (PLAVIX) 75 mg Oral Tab Take 75 mg by mouth Daily LATE. Indications: to check with PMD per dr mcdaniel ??? potassium chloride (KLOR-CON 10) 10 mEq Oral TbSR Take 10 mEq by mouth daily with breakfast. Indications: takes two tabs in the am ??? amitriptyline (ELAVIL) 50 mg Oral tablet Take 50 mg by mouth daily at bedtime. ??? rosuvastatin (CRESTOR) 10 mg Oral tablet [...] needed. Indications: hasn't used in one year Current facility-administered medications Medication Dose Route Frequency Provider Last Rate Last Dose ??? ceFAZolin (ANCEF) IVPB 2,000 mg 2,000 mg IV Pre-Proc Once Jack Mcdaniel MD ??? lactated ringers solution IV Pre-Proc Continuous Jack Mcdaniel MD 150 mL/hr (09/10/10 1126) ??? lidocaine 2% (XYLOCAINE) injection 0.3 mL 0.3 mL Intradermal Pre-Proc Once Jack Mcdaniel MD ??? lactated ringers solution IV Post-Proc Continuous Brandi Hernández MD ??? morphine 5 mg/mL injection 2 mg 2 mg IV Post-Proc q 5 min PRN Brandi Hernández MD ??? fentaNYL PF (SUBLIMAZE) 50 mcg/mL injection 25 mcg 25 mcg IV Post-Proc q 5 min PRN Brandi Hernández MD ??? metoclopramide (REGLAN) injection 10 mg 10 mg IV Post-Proc Once PRN Brandi Hernández MD ??? ondansetron (ZOFRAN) 4 mg/2 mL injection 4 mg 4 mg IV Post-Proc q 5 min PRN Brandi Hernández MD ??? diphenhydrAMINE (BENADRYL) injection 12.5 mg 12.5 mg IV Post-Proc q 6 hours PRN Brandi Hernández MD There are no active problems to display for this patient. Past Medical History Diagnosis Date ??? Pneumonia just recovering ??? Seizure disorder 2001 after stroke-none since ??? CVD (cerebrovascular disease) 6225-6289 TIA x2 ??? Duodenal ulcer 1977 ??? Shingles [id number] x3 ??? Glaucoma ??? Heart murmur ??? [...] Surgical History Procedure Date ??? Hx cholecystectomy 1998 ??? Hx hysterectomy 1986 ??? Hx surgical other 1975 ulcer removed from vocal cord ??? Hx hernia repair 2009-[facility] ??? Hx knee arthroscopy [id number] right knee ??? Hx heart catheterization 2002 dr. Valencia ??? Hx surgical other 1985 surgery for broken nose History Substance Use Topics ??? Smoking status: Never Smoker ??? Smokeless tobacco: Not on file ??? Alcohol Use: No No family history on file. Previous Anesthesia Problems/Concerns: No anesthesia problems/complications History of PONV No Review of Systems Cardiovascular: htn, hyperlipidemia, abnormal stress, but normal cath, clearance from wireless engineer in paper chart Neuro; H/o CVA/TIA with seizures following, no residual, demyelinating neuropathy ble Respiratory: mild asthma; caty w cpap Gastroenterology: bowel prep performed, gerd, pud, ibs PHYSICAL EXAM BP 135/68 Pulse 86 Temp 98.1 ??F (36.7 ??C) Resp 18 Ht 5' 5 (1.651 m) Wt 192 lb (87.091 kg) BMI 31.95 kg/m2 SpO2 96% Weight: Weight: 192 lb (87.091 kg) (08/22/10 1350) Height: Ht Readings from Last 1 Encounters: 08/22/10 5' 5 (1.651 m) BMI: Body mass index is 31.95 kg/(m^2). Airway: normal range of motion: Airway Class: II (soft palate, uvula, fauces visible); None Lungs: clear to auscultation bilaterally, normal respiratory effort Heart: regular rate and rhythm, S1, S2 normal, no murmur, click, rub or gallop Neuro: alert, oriented x 3, no defects noted in general exam. Vascular Access: Peripheral Line LABS Lab Results Component Value Date WBC 5.7 08/22/2010 HEMOGLOBIN 13.3 08/22/2010 HEMATOCRIT 40.1 08/22/2010 PLATELETS 308 08/22/2010 MCV 89.9 08/22/2010 Lab Results Component Value Date SODIUM 142 08/22/2010 POTASSIUM 3.5 08/22/2010 CHLORIDE 106 08/22/2010 CO2 28 08/22/2010 CALCIUM 10.2 08/22/2010 BUN 18 08/22/2010 CREATININE 0.76 08/22/2010 GLUCOSE 136* 08/22/2010 No results found for this basename: INR, PT, PROTIMEPOC No results found for this basename: HCGURPOC, HCGQUALUR, HCGQUAL, HCGQUANT, HCGINTACT No results found for this basename: glucpoc EK/11 sinus rhythm LAD non-specific IVCD Other Studies/Considerations: Cardiac studies 07/27 Cardiac Stress Anterior/Apical wall ischemia Normal LVF EF 65% 09/06/10 Negative cath. Cardiac clearance on chart. Postop pain management discussed yes Smoking/Tobacco Counseling: None Recommendations: CATY precautions [facility] report reviewed. No interval changes in patient's history or review of systems.Yes ASA Physical Status: ASA 3 - Patient with moderate systemic disease with functional limitations I have seen and examined this patient and confirm that all data is current and accurate. Yes Choice of Anesthesia/Anesthesia Plan: Proceed and General I have discussed the anesthetic options and the risks/benefits with the patient/family. Questions have been solicited and answered. Yes Brandi Hernández MD * Erica-OP - Nina Yarbrough RN - 09/10/2010 10:31 AM CDT Potential for anxiety related to surgical intervention Interventions: convey caring/supportive attitude; offer emotional support as needed; provide comfort measures (warm blanket, pillow, quiet environment); allow patient opportunity to verbalize concerns/fears/questions; explore coping behaviors; allow age-specific/special needs family support Expected Outcome: Patient will demonstrate decreased anxiety or adaptive coping strategies Outcome Met: yes Knowledge deficit related to procedure/environment Interventions: Assess learning needs and willingness to learn; give clear, concise explanations of the environment and sequence of events surrounding the periop experience; address patient/family questions and concerns; provide teaching as indicated, provide teaching related to postoperative pain assessment utilizing pain scales Expected Outcome: Patient verbalizes or demonstrates awareness/understanding of surgery and perioperative experience Outcome Met: yes * Erica-OP - Bhargavi Barry RN - 09/10/2010 10:31 AM CDT Potential for anxiety related to surgical intervention Interventions: convey caring/supportive attitude; offer emotional support as needed; provide comfort measures (warm blanket, pillow, quiet environment); allow patient opportunity to verbalize concerns/fears/questions; explore coping behaviors; allow age-specific/special needs family support Expected Outcome: Patient will demonstrate decreased anxiety or adaptive coping strategies Outcome Met: yes Potential for pain related to surgical/procedural intervention Interventions: Assess level of pain/comfort utilizing verbal/nonverbal pain scales; assess culturalor mandaeism indicators attached to pain; administer pain medications as prescribed; utilize non-pharmacologic pain control and comfort measures Expected Outcome: Patient demonstrates and reports adequate pain control Outcome Met: yes documented in this encounter Miscellaneous Notes * Patient Instructions - [facility] - 09/12/2010 8:39 PM CDT * Scanned Form - [facility] - 09/12/2010 8:39 PM CDT * Scanned Form - [facility] - 09/12/2010 8:39 PM CDT * Scanned Form - [facility] - 09/12/2010 8:39 PM CDT * Scanned Form - [facility] - 09/12/2010 8:39 PM CDT * Scanned Form - [facility] - 09/12/2010 8:39 PM CDT * Care Plan - Dianna Wan RN - 09/11/2010 5:43 AM CDT Problem: Hysterectomy (Adult) Goal: Prevent/Manage Potential Problems Signs and symptoms of listed problems will be absent or manageable. Outcome: Progressing Dressing in dry and intact. Scant, dry, pink drainage noted. Pt denies pain and is resting quietly. * Care Plan - Julia Arellano RCP - 09/11/2010 5:22 AM CDT Problem: NPPV/CPAP (Adult) Intervention: Airway/Ventilation Management Events of the Shift: No changes in respiratory status; pt has home cpap unit @ bedside but does nothave reservoir, pt was offered one of our units, pt stated she would go without for tonight and make sure brings her reservoir tomomrrow Breath Sounds: Clear and diminished Respiratory Assessment: Respiratory (WDL): Re-assessment completed and no changes noted from last filed value (09/11/10 0400) * Care Plan - Alexandra Rae - 09/10/2010 6:07 PM CDT Potential for pain related to surgical/procedural intervention Interventions: Assess level of pain/comfort utilizing verbal/nonverbal pain scales; assess culturalor mandaeism indicators attached to pain; administer pain medications as prescribed; utilize non-pharmacologic pain control and comfort measures Expected Outcome: Patient demonstrates and reports adequate pain control Outcome Met: yes Potential for alteration in thermoregulatory, circulatory, respiratory fluid & electrolyte status Interventions: Perform ongoing physical assessment; maintenance of airway or mechanical ventilation; monitor level of consciousness; initiate safety measures; observe patient???s respiratory status and oxygen saturation; obtain measurements of ongoing hemodynamic parameters, cardiac rhythm, and temperature; monitor intake and output; inspect wound dressings and/or drain output; perform prescribedtherapeutic regimens, treatments and tests; document and/or communicate care given Expected Outcome: Patient will maintain functional status compatible with preoperative status Outcome Met: yes documented in this encounter Plan of Treatment Upcoming Encounters Date Type Department Care Team (Late st Contact Info) Description 07/12/2024 2:30 PM RESIDENT PHYSICIAN IN RADIOLOGY Office Visit [facility] Oncology and Hematology - Oscar [address] [facility] [address] [place] [address] Ovidio Nolen MD [address] [facility] [address] [place] [address] documented as of this encounter Procedures Procedure Name Priority Date/Time Associated Diagnosis Comments TELEMETRY REPORT 09/12/2010 8:39 PM CDT ENTEROCELE REPAIR VAGINAL APPROACH 09/10/2010 2:35 PM CDT CYSTOCELE, RECTOCELE RECTOCELE REPAIR 09/10/2010 2:35 PM CDT CYSTOCELE, RECTOCELE PERINEOPLASTY 09/10/2010 2:35 PM CDT CYSTOCELE, RECTOCELE ANTERIOR POSTERIOR REPAIR 09/10/2010 2:35 PM CDT CYSTOCELE, RECTOCELE CYSTOCELE REPAIR 09/10/2010 2:35 PM CDT CYSTOCELE, RECTOCELE SACROSPINOUS LIGAMENT FIXATION 09/10/2010 2:35 PM CDT CYSTOCELE, RECTOCELE documented in this encounter Results * TELEMETRY REPORT (09/12/2010 8:39 PM CDT) Narrative Transcriptions Stl Scanning, Him - 09/12/2010 8:39 PM CDT Provider Scanning ECG ORDERABLES documented in this encounter Visit Diagnoses Not on filedocumented in this encounter Active and Recently Administered Medications Times are shown in CDT. Scheduled Medication Order 09/09/2010 09/10/2010 09/11/2010 amitriptyline (ELAVIL) tablet 50 mg (CANCELED) 50 mg, Oral, DAILY AT BEDTIME, First dose on Fri09/10/10 at 2100, Until Discontinued, Routine 2115 (Given - Provider: Dianna Wan RN) atorvastatin (LIPITOR) tablet 20 mg (CANCELED) 20 mg, Oral, DAILY AT BEDTIME, First dose on Fri09/10/10 at 2100, Until Discontinued, Routine 2120 (Given - Provider: Dianna Wan RN) ceFAZolin (ANCEF) IVPB 1,000 mg (COMPLETED) 1,000 mg, IV, EVERY 8 HOURS, 2 doses, First dose on Fri09/10/10 at 2000, Last dose on Fri09/11/10 at 0500, Routine 2109 (Given - Provider: Dianna Wan RN - Comment: Stopped at 2140) 0513 (Given - Provider: Dianna Wan RN - Comment: stopped at 0545) ceFAZolin (ANCEF) IVPB 2,000 mg (COMPLETED) 2,000 mg, IV, PRE-PROCEDURE ONCE, 1 dose, Starting on Fri09/10/10 at 1029, Until Fri09/10/10 at 1530, Routine 153 (Given - Provider: TATUM Douglas) docusate sodium (COLACE) capsule 100 mg 100 mg, Oral, TWO TIMES DAILY, First dose on Fri09/10/10 at 2100, Until Discontinued, Routine 2122 (Given - Provider: Dianna Wan RN) 0941 (Given - Provider: Radha Zepeda RN) pantoprazole (PROTONIX) tablet 40 mg (CANCELED) 40 mg, Oral, DAILY BEFORE BREAKFAST, First dose on Fri09/11/10 at 0600, Until Discontinued, Routine 0514 (Given - Provid er: Dianna Wan RN) potassium chloride (KLOR-CON,K-TAB) tablet 20 mEq (CANCELED) 20 mEq, Oral, DAILY WITH BREAKFAST, First dose on Fri09/11/10 at 0700, Until Discontinued, Routine 0941 (Given - Provid er: Radha Zepeda RN) triamterene-hydrochloroth iazide (MAXZIDE) 75-50 mg per tablet 1 Tab (CANCELED) 1 Tablet, Oral, DAILY, First dose on Fri09/11/10 at 0900, Until Discontinued, Routine 1126 (Given - Provid er: Radha Zepeda RN) valsartan (DIOVAN) tablet 80 mg (CANCELED) 80 mg, Oral, DAILY, First dose on Fri09/11/10 at 0900, Until Discontinued, Routine 0941 (Given - Provid er: Radha Zepeda RN) Continuous Medication Order 09/09/2010 09/10/2010 09/11/2010 lactated ringers solution (CANCELED) IV, at 150 mL/hr, PRE-PROCEDURE CONTINUOUS, Starting on Fri09/10/10 at 1030, Until Fri09/10/10 at 1807, Routine 1126 (New Bag - Provider: Bethanie Nino RN) lactated ringers solution (CANCELED) IV, at 100 mL/hr, CONTINUOUS, Starting on Fri09/10/10 at 1815, Until Fri09/11/10 at 1758, Routine 1837 (New Bag - Provider: Domonique Garcia RN)1900 (Rate Verify - Provider: Dianna Wan RN)2000 (Rate Verify - Provider: Dianna Wan RN)2100 (Rate Verify - Provider: Dianna Wan RN)2200 (Rate Verify - Provider: Dianna Wan RN)2300 (Rate Verify - Provider: Dianna Wan RN) 0000 (Rate Verify - Provider: Dianna Wan RN)0100 (Rate Verify - Provider: Dianna E Wan, RN)0255 (New Bag - Provider: Dianna Wan RN)0400 (Rate Verify - Provider: Dianna Wan RN)0500 (Rate Verify - Provider: Dianna Wan RN)0700 (Rate Verify - Provider: Radha Zepeda RN)0800 (Rate Verify - Provider: Radha Zepeda RN)0900 (Rate Verify - Provider: Radha Zepeda RN)1300 (Rate Verify - Provider: Radha Zepeda RN)1500 (Stopped - Provider: Radha Zepeda RN) PRN Medication Order 09/09/2010 09/10/2010 09/11/2010 fentaNYL PF (SUBLIMAZE) 50 mcg/mL injection 25 mcg (CANCELED) 25 mcg, IV, POST-PROCEDURE Q 5 MINUTES PRN, Starting on Fri09/10/10 at 1159, Until Fri09/10/10 at 1807, Pain, Routine 1713 (Given - Provider: Alexandra Rae)1729 (Given - Provider: Alexandra Rae)1745 (Given - Provider: Alexandra Rae) ibuprofen (MOTRIN) tablet 600 mg (CANCELED) 600 mg, Oral, EVERY 8 HOURS PRN, Starting on Fri09/10/10 at 1807, Until Fri09/11/10 at 1758, Pain, Routine 0800 (Given - Provid er: Radha Zepeda RN) oxyCODONE-acetaminophen (PERCOCET) 5-325 mg per tablet 1 Tab 1 Tablet, Oral, EVERY 4 HOURS PRN, Starting on Fri09/10/10 at 1807, Until Fri09/11/10 at 1758, Pain, Moderate, For Pain Scale 4-6, Routine documented in this encounter Care Teams Meals On Wheels Driver Relationship Specialty Start Date End Date Grupo Garcia MD PCP - General Internal Medicine 08/14/10 06/22/15 documented as of this encounter
--- OUTSIDE RECORDS SUMMARY | 2024-05-26 13:19 | XMS_ITS | Encounter Summary ---
Author Organization [facility] Address [address] [place] [address] Care Team Providers Care Airline Ticket Agent Name Role Phone Grupo Garcia MD Primary Care Provider Unavailab le Encounter Details Date Type Department Care Team (Late Contact Info) Description 10/20/2012 Orders Only [facility] Endocrinology [address] [facility] [address] [place] [address] Ramo Barajas MD NO ADDRESS ON FILE Multiple thyroid nodules Social History Tobacco Use [...] st Contact Info) Description 07/12/2024 2:30 PM ROTARY SHEAR WORKER HELPER Office Visit [facility] Oncology and Hematology - Oscar [address] [facility] [address] [place] [address] Ovidio Nolen MD [address] [facility] [address] [place] [address] documented as of this encounter Procedures Procedure Name Priority Date/Time Associated Diagnosis Comments US HEAD NECK TISSUES Routine 10/19/2012 Multiple thyroid nodules documented in this encounter Results * US HEAD NECK TISSUES (10/19/2012) Anatomical Region Laterality Modality Head Other Ramo Barajas MD US ORDERABLES documented in this encounter Visit Diagnoses Diagnosis Multiple thyroid nodules Nontoxic multinodular goiter documented in this encounter Care Teams Airline Ticket Agent Relationship Specialty Start Date End Date Grupo Garcia MD PCP - General Internal Medicine 08/14/10 06/22/15 documented as of this encounter
--- OUTSIDE RECORDS SUMMARY | 2024-05-26 13:19 | XMS_ITS | Encounter Summary ---
Author Organization [facility] Address [address] [place] [address] Care Team Providers Care Fig Bar Machine Operator Name Role Phone Grupo Garcia MD Primary Care Provider Unavailab le Reason for Visit * Auth/Cert - Closed Specialty Diagnoses / Procedures Referred By Alejandrina vale Referred To Contact General Surgery Diagnoses CYSTOCELE, RECTOCELE Procedures SACROSPINOUS LIGAMENT FIXATION [facility] [address] [place] [address] Referral ID Status Reason Start Date Expiration Date Visits Re quested Visits Authorized [id number] Closed 08/14/2010 02/10/2011 1 Encounter Details Date Type Department Care Team (Latest Contact Info) Description 09/10/2010 10:19 AM CDT - 09/11/2010 3:58 PM CDT Hospital Encounter [facility] [address] [place] [address] Jack Mcdaniel MD [address] [facility] [address] [address] Vaginal vault prolapse, posthysterectomy Discharge Disposition: Home or Self Care Social [...] Sign Reading Time Taken Comments Blood Pressure 122/45 09/11/2010 1:48 PM CDT Pulse 92 09/11/2010 1:48 PM CDT Temperature 36.8 ??C (98.2 ??F) 09/11/2010 1:48 PM CD T Respiratory Rate 16 09/11/2010 1:48 PM CDT Oxygen Saturation 93% 09/11/2010 1:48 PM CDT Inhaled Oxygen Concentration - - Weight 85.9 kg (189 lb 4.8 oz) 09/11/2010 5:16 A M CDT Height 165.1 cm (5' [...] HOSPITAL COURSE The patient was admitted to [facility] and underwent reconstructive surgery ofthe above procedures. [...] Vital signs stable, -UOP clear and adequate. 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 -tolerating regular diet 2 - Continue routine post-op care. -DVT ppx: SCDs, ambulation 3 - Type 2 DM -diet controlled 4 - CATY -CPAP 5 - HTN, hyperlipidemia, and Ischemic Heart Disease -home meds restarted today. 6 - Home today, possibly tomorrow, depending on progress. Lyssa Macario MD, PGY-2 Oyster Culturist documented in this encounter H&P Notes * Stl Scanning, [facility] - 09/12/2010 8:39 PM CDT documented in this encounter Procedure Notes * Stl Scanning, [facility] - 09/12/2010 8:39 PM CDTAssociated Order(s): TELEMETRY REPORT documented in this encounter Consult Notes * Stl Scanning, [facility] - 09/12/2010 8:39 PM CDT documented in this encounter OR Notes * OR Anesthesia - Stl Scanning, [facility] - 09/12/2010 8:39 PM CDT * OR Anesthesia - Alexandre Burns AA-C - 09/11/2010 8:18 AM CDT 09/11/2010 8:19 AM LOC ANDERSON No apparent Anesthesia related complications TATUM Young * OR Anesthesia - Quentin Saul MD - 09/10/2010 5:51 PM CDT Phase I Postanesthesia Evaluation Including Modified Cheryl Score Patient seen and evaluated: RESPIRATORY FUNCTION: Respiration: able to breath and cough freely (09/10/10 1700) [2=able to breathe and cough freely, 1=dyspnea, limited breathing or tachypnea, 0=apnea or mechanicventilator] O2 Saturation: needs O2 inhalation to maintain O2 saturation greater than 90% (09/10/10 1700) [2=able to maintain O2 saturation greater than [...] original note were not included. OPERATIVE REPORT [place], [place] [address] cc: Jack Mcdaniel MD SURGEON Jack Mcdaniel MD ANALYTICAL LAB TECHNICIAN Jeffrey Macario MD PREOPERATIVE DIAGNOSIS Post-hysterectomy vaginal [...] Long Form 09/10/2010 1:08 PM Name: LOC ANDERSNO Age: 69 y.o. Sex: female [facility]: [id number] Procedure: Procedure(s): SACROSPINOUS LIGAMENT FIXATION CYSTOCELE OR [...] 2,000 mg 2,000 mg IV Pre-Proc Once Jakc Mcdaniel MD ??? lactated ringers solution IV [...] after stroke-none since ??? CVD (cerebrovascular disease) [id number] TIA x2 ??? Duodenal ulcer 1978 ??? Shingles [id number] x3 ??? Glaucoma ??? Heart murmur ??? [...] from vocal cord ??? Hx hernia repair 2009-[facility] ??? Hx knee arthroscopy [phone] right knee ??? Hx heart catheterization 2002 [...] abnormal stress, but normal cath, clearance from vocational education teacher in paper chart Neuro; H/o CVA/TIA with [...] pain/comfort utilizing verbal/nonverbal pain scales; assess culturalor jewish indicators attached to pain; administer pain medications as prescribed; utilize non-pharmacologic pain control and comfort measures Expected Outcome: Patient demonstrates and reports adequate pain control Outcome Met: yes documented in this encounter Miscellaneous Notes * Patient Instructions - Stl Scanning, Him - 09/12/2010 8:39 PM CDT * Scanned Form - Stl Scanning, [facility] - 09/12/2010 8:39 PM CDT * Scanned Form - Stl Scanning, Him - 09/12/2010 8:39 PM CDT * Scanned Form - Stl Scanning, [facility] - 09/12/2010 8:39 PM CDT * Scanned Form - Stl Scanning, [facility] - 09/12/2010 8:39 PM CDT * Scanned Form - Stl Scanning, [facility] - 09/12/2010 8:39 PM CDT * [...] pain/comfort utilizing verbal/nonverbal pain scales; assess culturalor jewish indicators attached to pain; administer pain medications [...] Contact Info) Description 07/12/2024 2:30 PM SUPERVISOR [place] Office Visit [facility] Oncology and Hematology [facility] [address] [facility] [address] [place] [address] Ovidio Nolen MD [address] [facility] [address] [place] [address] documented as of this encounter [...] REPORT (09/12/2010 8:39 PM CDT) Narrative Transcriptions Stjonas Donato, Him - 09/12/2010 8:39 PM CDT Provider Scanning ECG ORDERABLES documented in this encounter Visit Diagnoses Diagnosis ssc, a&p, no sling Prolapse of vaginal vault after hysterectomy documented in this encounter Administered Medications Inactive Administered Medications - up to 3 most recent administrations Medication Order MAR Action Action Date Dose Rate Site amitriptyline (ELAVIL) tablet 50 mg 50 mg, Oral, DAILY AT BEDTIME, First dose on Fri09/10/10 at 2100, Until Discontinued, Routine Given 09/10/2010 9:16 PM CDT 50 mg atorvastatin (LIPITOR) tablet 20 mg 20 mg, Oral, DAILY AT BEDTIME, First dose on Fri09/10/10 at 2100, Until Discontinued, Routine Given 09/10/2010 9:21 PM CDT 20 mg ceFAZolin (ANCEF) IVPB 1,000 mg 1,000 mg, IV, EVERY 8 HOURS, 2 doses, First dose on Fri09/10/10 at 2000, Last dose on Fri09/11/10 at 0500, Routine Given 09/11/2010 5:13 AM CDT 1,000 mg Given 09/10/2010 9:10 PM CDT 1,000 mg ceFAZolin (ANCEF) IVPB 2,000 mg 2,000 mg, IV, PRE-PROCEDURE ONCE, 1 dose, Starting on Fri09/10/10 at 1029, Until Fri09/10/10 at 1530, Routine Given 09/10/2010 3:30 PM CDT 2,000 mg docusate sodium (COLACE) capsule 100 mg 100 mg, Oral, TWO TIMES DAILY, First dose on Fri09/10/10 at 2100, Until Discontinued, Routine Given 09/11/2010 9:41 AM CDT 100 mg Given 09/10/2010 9:23 PM CDT 100 mg fentaNYL PF (SUBLIMAZE) 50 mcg/mL injection 25 mcg 25 mcg, IV, POST-PROCEDURE Q 5 MINUTES PRN, Starting on Fri09/10/10 at 1159, Until Fri09/10/10 at 1807, Pain, Routine Given 09/10/2010 5:45 PM CDT 25 mcg Given 09/10/2010 5:29 PM CDT 25 mcg Given 09/10/2010 5:13 PM CDT 25 mcg ibuprofen (MOTRIN) tablet 600 mg 600 mg, Oral, EVERY 8 HOURS PRN, Starting on Fri09/10/10 at 1807, Until Fri09/11/10 at 1758, Pain, Routine Given 09/11/2010 8:00 AM CDT 600 mg lactated ringers solution IV, at 150 mL/hr, PRE-PROCEDURE CONTINUOUS, Starting on Fri09/10/10 at 1030, Until Fri09/10/10 at 1807, Routine New Bag 09/10/2010 11:26 AM CDT 150 mL/hr lactated ringers solution IV, at 100 mL/hr, CONTINUOUS, Starting on Fri09/10/10 at 1815, Until Fri09/11/10 at 1758, Routine Rate Verify 09/11/2010 1:00 PM CDT 100 mL/hr Rate Verify 09/11/2010 9:00 AM CDT 100 mL/hr Rate Verify 09/11/2010 8:00 AM CDT 100 mL/hr pantoprazole (PROTONIX) tablet 40 mg 40 mg, Oral, DAILY BEFORE BREAKFAST, First dose on Fri09/11/10 at 0600, Until Discontinued, Routine Given 09/11/2010 5:14 AM CDT 40 mg potassium chloride (KLOR-CON,K-TAB) tablet 20 mEq 20 mEq, Oral, DAILY WITH BREAKFAST, First dose on Fri09/11/10 at 0700, Until Discontinued, Routine Given 09/11/2010 9:41 AM CDT 20 mEq triamterene-hydrochlorothiazide (MAXZIDE) 75-50 mg per tablet 1 Tab 1 Tablet, Oral, DAILY, First dose on Fri09/11/10 at 0900, Until Discontinued, Routine Given 09/11/2010 11:26 AM CDT 1 Tablet valsartan (DIOVAN) tablet 80 mg 80 mg, Oral, DAILY, First dose on Fri09/11/10 at 0900, Until Discontinued, Routine Given 09/11/2010 9:41 AM CDT 80 mg documented in this encounter Active and Recently Administered Medications Times are shown in CDT. Scheduled Medication Order 09/09/2010 09/10/2010 09/11/2010 amitriptyline (ELAVIL) tablet 50 mg (CANCELED) 50 mg, Oral, DAILY AT BEDTIME, First dose on Fri09/10/10 at 2100, Until Discontinued, Routine 2115 (Given - Provider: Dianna Wan, RN) atorvastatin (LIPITOR) tablet 20 mg (CANCELED) [...] at 1029, Until Fri09/10/10 at 1530, Routine 1529 (Given - Provider: Baldo Aquino, TATUM) docusate sodium (COLACE) capsule 100 mg 100 mg, Oral, TWO TIMES DAILY, First dose on Fri09/10/10 at 2100, Until Discontinued, Routine 2122 (Given - Provider: Dianna Wan RN) 09 (Given - Provider: Radha Zepeda RN) pantoprazole (PROTONIX) tablet 40 mg (CANCELED) 40 mg, Oral, DAILY BEFORE BREAKFAST, First dose on Fri09/11/10 at 0600, Until Discontinued, Routine 513 (Given - Provid er: Dianna Wan RN) potassium chloride (KLOR-CON,K-TAB) tablet 20 mEq (CANCELED) 20 mEq, Oral, DAILY WITH BREAKFAST, First dose on Fri09/11/10 at 0700, Until Discontinued, Routine 09 (Given - Provid er: Radha Zepeda RN) [...] Wan RN)0100 (Rate Verify - Provider: Dianna Wan RN)0255 (New Bag - Provider: Dianna Wan [...] Routine documented in this encounter Care Teams Fig Bar Machine Operator Relationship Specialty Start Date End Date Grupo Garcia MD PCP - General Internal Medicine 08/14/10 06/22/15 documented as of this encounter
--- OUTSIDE RECORDS SUMMARY | 2024-05-26 13:19 | XMS_ITS | Encounter Summary ---
Author Organization [facility] Address [address] [place] [address] Care Team Providers Care Weapons And Tactics Instructor Name Role Phone Grupo Garcia MD Primary Care Provider Unavailab le Reason for Visit * Reason Onset Date Comments Results 05/07/2013 Encounter Details Date Type Department Care Team (Late st Contact Info) Description 05/07/2013 Telephone [facility] Endocrinology [address] [place] [address] Yuliya Ibarra MD [address] [place] [address] Results Social History Tobacco Use [...] * Telephone Encounter - Sejal Huffman - 05/07/2013 3:11 PM CST Notified pt of dr randolph below. [employer] * Telephone Encounter - Sejal Huffman - 05/07/2013 3:10 PM CST Message copied by SEJAL HUFFMAN on FriMay 07, 2013 3:10 PM ------ Message from: EFFIE HARKINSRANJEETISABELL Created: FriMay 07, 2013 1:44 PM ----- Message ----- From: Yuliya Ibarra MD Sent: 05/07/2013 11:47 AM To: Isabell Simons Mild osteopenia in her spine Normal hip and radius bone density ------ [employer] documented in this encounter Plan of Treatment Upcoming Encounters Date Type Department Care Team (Late st Contact Info) Description 07/12/2024 2:30 PM [employer]P [employer] Office Visit [facility] Oncology and Hematology - Oscar [address] [facility] [address] [place] [address] Ovidio Nolen MD [address] [facility] [address] [place] [address] documented as of this encounter Visit Diagnoses Not on filedocumented in this encounter Care Teams Weapons And Tactics Instructor Relationship Specialty Start Date End Date Grupo Garcia MD PCP - General Internal Medicine 08/14/10 06/22/15 documented as of this encounter
--- OUTSIDE RECORDS SUMMARY | 2024-05-26 13:19 | XMS_ITS | Encounter Summary ---
Author Organization [facility] Address [address] [place] [address] Care Team Providers Care Public Relations Specialist Name Role Phone Grupo Garcia MD Primary Care Provider Unavailab le Reason for Visit * Reason Onset Date Comments Results 05/20/2013 calcium Encounter Details Date Type Department Care Team (Late st Contact Info) Description 05/20/2013 Telephone [facility] Endocrinology [address] [place] [address] Yuliya Ibarra MD [address] [place] [address] Results (calcium) Social History Tobacco Use Types Packs/Day Years [...] * Telephone Encounter - Kati Quintero - 05/20/2013 3:06 PM LINE PATROLLER Pt informed of results and instructions. Labs ordered and mailed to pt home PATROLLER documented in this encounter Plan of Treatment Upcoming Encounters Date Type Department Care Team (Late st Contact Info) Description 07/12/2024 2:30 PM LINE PATROLLER Office Visit [facility] Oncology and Hematology - Oscar [address] [facility] [address] [place] [address] Ovidio Nolen MD [address] [facility] [address] [place] [address] documented as of this encounter Results * BASIC METABOLIC PANEL (06/08/2013) Blood specimen (specimen) Yuliya Ibarra MD CHEMISTRY ORDERABLES [facility]# [id number] [address] [facility] [place] [address] documented in this encounter Visit Diagnoses Diagnosis Serum calcium elevated- Primary Hypercalcemia documented in this encounter Care Teams Public Relations Specialist Relationship Specialty Start Date End Date Grupo Garcia MD PCP - General Internal Medicine 08/14/10 2 documented as of this encounter
--- OUTSIDE RECORDS SUMMARY | 2024-05-26 13:19 | XMS_ITS | Encounter Summary ---
Author Organization [facility] Address [address] [place] [address] Care Team Providers Care Underliner Name Role Phone Grupo Garcia MD Primary Care Provider Unavailab le Reason for Visit * Reason Comments Follow Up Encounter Details Date Type Department Care Team (Late st Contact Info) Description 11/04/2012 11:15 AM CDT Office Visit [facility] Endocrinology [address] [place] [address] Ramo Barajas MD NO ADDRESS [...] Sign Reading Time Taken Comments Blood Pressure 128/70 11/04/2012 11:06 AM CDT Pulse 82 11/04/2012 11:06 AM CDT Temperature - - Respiratory Rate - - Oxygen Saturation - - Inhaled Oxygen Concentration - - Weight 91.6 kg (202 lb) 11/04/2012 11:06 AM CDT Height 165.1 cm (5' 5 ) 11/04/2012 11:06 AM CDT Body Mass Index 33.61 11/04/2012 11:06 AM CDT documented in this encounter Progress Notes * Kati Quintero - 11/04/2012 11:06 AM CDT Pt here f/u thyroid * Ramo Barajas MD - 11/04/2012 11:05 AM CDT Perla Leon is a 71 y.o. female is here for followup regarding the management of thyroid nodules. 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 Recent US showed no significant change to the size or characteristics of her cysts. Past Medical History Diagnosis Date ??? Pneumonia just recovering ??? Seizure disorder 2000 after stroke-none since ??? CVD (cerebrovascular disease) [id number] TIA x2 ??? Duodenal ulcer 1977 ??? Shingles [id number] x3 ??? Glaucoma ??? Heart murmur ??? [...] repair 2009- ne ??? Hx knee arthroscopy [id number] right knee ??? Hx heart catheterization 2002 dr. Valencia ??? Hx surgical other 1985 surgery for broken nose ??? Pr repr vaginal prolapse,sacrosp lig 09/10/2010 SACROSPINOUS LIGAMENT FIXATION performed by FRANKLYN PACK at [facility] OR [facility] ??? Pr anter colporrhaphy,blad/vagina 09/10/2010 CYSTOCELE REPAIR performed by FRANKLYN PACK at [facility] ??? Hx surgical other 09/10/2010 ANTERIOR POSTERIOR REPAIR performed by FRANKLYN PACK at [facility] ??? Pr repair of perineum,non obstetrical 09/10/2010 PERINEOPLASTY performed by FRANKLYN PACK at [facility] OR [facility] ??? Pr post colporrhaphy,rectum/vagina 09/10/2010 RECTOCELE REPAIR performed by FRANKLYN PACK at [facility] OR [facility] ??? Pr repair enterocele,vag apprch 09/10/2010 ENTEROCELE REPAIR VAGINAL APPROACH performed by FRANKLYN PACK at [facility] History Social History ??? Marital [...] visit. Allergies Allergen Reactions ??? Advair Diskus (Fluticasone-Salmeterol) Unknown ??? Aricept (Donepezil) Unknown ??? Diltiazem Unknown ??? Latex Unknown Meds reviewed (see above) Review of Systems: General ROS: negative for weight changes,- fever Psychological ROS: negative for anxiety or depressive symptoms Respiratory ROS: negative for cough, shortness of breath, or wheezing Cardiovascular ROS: negative for chest pain or dyspnea on exertion Gastrointestinal ROS: negative for abdominal pain, change in bowel habits, Integumentary ROS: No rashes Neurological ROS: negative for TIA or stroke symptoms PE: The patient is alert oriented x3 BP 128/70 Pulse 82 Ht 5' 5 (1.651 m) Wt 202 lb (91.627 kg) BMI 33.61 kg/m2 NCAT, PERRL, hearing intact Neck is supple, there is mild thyroid enlargement. CV: S1S2 normal in rhythm and rate Resp: CTA bilaterally Skin: no rashes present Images reviewed A/P: -- Repeat US in one year. -- f/u in one year Perla was seen today for follow up. Diagnoses and associated orders for this visit: Multiple thyroid nodules - US HEAD NECK TISSUES; Future documented in this encounter Plan of Treatment Upcoming Encounters Date Type Department Care Team (Late st Contact Info) Description 07/12/2024 2:30 PM JUMPBASTING ARMHOLE BASTER Office Visit [facility] Oncology and Hematology - [place] [address] [place] [address] Ovidio Nolen MD [address] [place] [address] documented as of this encounter Visit Diagnoses Diagnosis Multiple thyroid nodules- Primary Nontoxic multinodular goiter documented in this encounter Care Teams Underliner Relationship Specialty Start Date End Date Grupo Garcia MD PCP - General Internal Medicine 08/14/10 2 documented as of this encounter
--- OUTSIDE RECORDS SUMMARY | 2024-05-26 13:19 | XMS_ITS | Encounter Summary ---
Author Organization [employer] Address [address] [place] [address] Care Team Providers Care Ratoprinter Name Role Phone Grupo Garcia MD Primary Care Provider Unavailab le Reason for Referral * Outpatient Services (Routine) - Closed Specialty Diagnoses / Procedures Referred By Contac t Referred To Contact Diagnoses Serum calcium elevated Procedures XR DEXA BONE DENSITY AXIAL 1 OR MORE SITES Yuliya Ibarra MD [address] [place] [address] Referral ID Status Reason Start Date Expiration Date V isits Requested Visits Authorized [id number] Closed [facility] CTS 04/29/2013 05/30/2014 1 1 DOWN WORKER Reason for Visit * Outpatient Services (Routine) - Closed Specialty Diagnoses / Procedures Referred By Contac t Referred To Contact Diagnoses Serum calcium elevated Procedures XR DEXA BONE DENSITY AXIAL 1 OR MORE SITES Yuliya Ibarra MD [address] [place] [address] Referral ID Status Reason Start Date Expiration Date V isits Requested Visits Authorized [id number] Closed [facility] CTS 04/29/2013 05/30/2014 1 1 Encounter Details Date Type Department Care Team (Latest Contact Info) Description 05/07/2013 10:10 AM TURN DOWN WORKER - 05/07/2013 11:59 PM TURN DOWN WORKER Hospital Encounter [facility] [place] [facility] [address] [place] [address] Yuliya Ibarra MD [address] [place] [id number] Discharge Disposition: Home or Self Care Social [...] st Contact Info) Description 07/12/2024 2:30 PM TURN DOWN WORKER Office Visit [facility] [place] Oncology and Hematology - [place] [address] [place] [address] Ovidio Nolen MD [address] [place] [address] documented as of this encounter Procedures Procedure Name Priority Date/Time Associated Diagnosis Comments XR DEXA BONE DENSITY AXIAL 1 OR MORE SITES Routine 05/07/2013 10:41 AM TURN DOWN WORKER Serum calcium elevated documented in this encounter Results * XR DEXA BONE DENSITY AXIAL 1 OR MORE SITES (05/07/2013 10:41 AM TURN DOWN WORKER) Anatomical Region Laterality Modality Digital Radiogra phy 05/07/2013 10:2 7 AM TURN DOWN WORKER Narrative 05/07/2013 11:25 AM TURN DOWN WORKER XR DEXA BONE DENSITY AXIAL 1 OR MORE SITES Dictated from Location 1 ([facility]) HISTORY: 72 yo F with postmenopausal symptoms with a history of hyperparathyroidism ??needing evaluation for osteoporosis. PROCEDURE: Using a [email or web address] dual energy x-ray absorptiometry system, the patient's [...] are available for comparison. Procedure Note Sonny Rodgers, DO - 05/07/2013 XR DEXA BONE DENSITY AXIAL 1 OR MORE SITES Dictated from Location 1 ([facility]) HISTORY: 72 yo F with postmenopausal symptoms with a history of hyperparathyroidism needing evaluation for osteoporosis. PROCEDURE: Using a [email or web address] dual energy x-ray absorptiometry system, the patient's [...] prior DEXA studies are available for comparison. Yuliya Ibarra MD DIAGNOSTIC IMAGING O [facility] documented in this encounter Visit Diagnoses Diagnosis Serum calcium elevated Hypercalcemia documented in this encounter Care Teams Ratoprinter Relationship Specialty Start Date End Date Grupo Garcia MD PCP - General Internal Medicine 08/14/10 06/22/15 documented as of this encounter
[2024-05-26 16:08] LABS: Glucose Point of Care 159 mg/dl (65-105)
[2024-05-26] MEDS: ROSUVASTATIN 10 MG TABLET PO (20:33)
[2024-05-26] MEDS: CALCIUM CARBONATE (TUMS) 500 MG (200 MG ELEMENTAL) BY MOUTH (20:33)
[2024-05-26] MEDS: MELATONIN 5 MG TABLET PO (20:33)
[2024-05-26] MEDS: ESCITALOPRAM OXALATE 10 MG TABLET PO (20:33)
[2024-05-26] MEDS: LORATADINE 10 MG TABLET PO (20:34)
[2024-05-26 20:57] LABS: Glucose Point of Care 136 mg/dl (65-105)
[2024-05-27] VITALS (13 sets, daily range): BP systolic 118–142; BP diastolic 44–67; PULSE 65–85; RESP 18; TEMP 36.1–36.7; O2SAT 92–96
[2024-05-27] MEDS: IPRATROPIUM 0.5 MG/ALBUTEROL SULFATE 2.5 MG AMPUL.NEB 3 ML NEBULIZE ×4 (02:25→22:32)
[2024-05-27] MEDS: MEROPENEM 1 GM/NS 100 ML 1 GM/100 ML BAG IVPB ×3 (03:16→18:25)
[2024-05-27] MEDS: LEVOTHYROXINE SODIUM 75 MCG TABLET PO (06:17)
[2024-05-27 07:30] LABS: Basophils Absolute Auto 0.1 K/mm3 (0.0-0.1); Basophils Percent Auto 0.8 % (0.2-1.2); Eosinophils Absolute Auto 0.5 K/mm3 (0-0.3); Eosinophils Percent Auto 3.9 % (0-4.4); Hematocrit 39.7 % (37.0-47.0); Hemoglobin 12.4 g/dL (12.0-15.0); Immature Granulocyte Absolute 0.24 K/mm3 (0.00-0.031); Immature Granulocyte Percent A 1.8 % (0-0.5); Lymphocytes Absolute Auto 1.64 K/mm3 (0.9-3.2); Mean Corpuscular HGB Conc 31.2 g/dl (32-36); Mean Corpuscular Hemoglobin 27.6 pg (26-34); Mean Corpuscular Volume 88.2 fl (80-100); Mean Platelet Volume 11.1 fl (7.4-10.4); Monocytes Percent Auto 21.7 % (2.6-8.5); Neutrophils Absolute Auto 8.2 K/mm3 (1.3-6.7); Neutrophils Percent Auto 59.8 % (45.5-73.1); Platelet Count Result 329 k/mm3 (150-375); Red Cell Distribution Width 13.2 % (11.5-14.5); White Blood Count 13.7 K/mm3 (4.5-10.0)
[2024-05-27 07:37] LABS: Alanine Aminotransferase 15 U/L (6-35); Albumin Level 2.7 g/dL (3.5-5.1); Alkaline Phosphatase 98 U/L (38-126); Anion Gap 2 mmol/L (4-12); Aspartate Amino Transferase 21 U/L (14-36); Bilirubin,Total 0.5 mg/dL (0.2-1.3); Blood Urea Nitrogen 10 mg/dL (7-17); Calcium 9.2 mg/dL (8.4-10.2); Carbon Dioxide 27 mmol/L (22-30); Chloride 104 mmol/L (98-107); Estimated CRCL calculation 76 ml/min; Estimated Glomerular Filt Rate > 60; Glucose 132 mg/dL (65-110); Magnesium 2.4 mg/dL (1.6-2.3); Potassium 3.8 mmol/L (3.4-5.0); Sodium 133 mmol/L (137-145)
--- NOTE | 2024-05-27 07:37 | P.PNIM_ITS ---
Progress Note: A&P Assessment and Plan (1) UTI (urinary tract infection): Qualifiers: Hematuria presence: with hematuria Urinary tract infection type: acute cystitis Qualified Code(s): N30.01 - Acute cystitis with hematuria Code(s): N39.0 - Urinary tract infection, site not specified Status: Acute Assessment and Plan: patient with history of suprapubic catheter was changed out in the emergency department by Urology daughter had reported hematuria prior to arrival urine is suspicious for UTI patient has had previous urine culture resistant Klebsiella pneumoniae * urology was consulted from the emergency department sign off on this time after successful exchange of suprapubic catheter. * Urine cultures * blood cultures pending * Continue IV hydration. * IV meropenem * Start probiotics to prevent antibiotic induced diarrhea * Monitor for obstructive uropathy and pyelonephritis 05/22/2024 * Urine culture with Proteus mirabilis * oral resistant will continue with IV meropenem 05/24/24 * Today is Day #4 of Meropenem therapy. Continue. * WBC's trending downward. 05/25/24 * currently on Day 5 of Meropenem * WBC 17.7 which is close to patient's baseline 05/26/24 * Continue Meropenem * WBC 16.7 (2) Pneumonia: Code(s): J18.9 - Pneumonia, unspecified organism Status: Acute Assessment and Plan: patient with shortness of breath and productive cough chest x-ray could not rule out pneumonia possible viral versus bacterial * currently on IV meropenem * DuoNebs * mucolytics * incentive spirometer * chronically elevated leukocytosis however has trended down to 21.6 was 43.4 on admission * oxygen p.r.n. 05/22/2024 * added PEP therapy * suction p.r.n. * blood cultures no growth today 05/23/2024 * F/U CXR showing bilateral lower lobe PNA * some concern for aspiration with secretions unable to clear * keep HOB at 45 at all times to reduce risk of aspiration * Suction PRN * WBC trending down 05/24/24: * WBC's 18.8 today. Continuing to trend downward. * Continue to monitor and trend labs. * Continue supportive care with suctioning, HOB at 45 degrees * Monitor labs and VS. * Wean oxygen as able to. 05/25/24: * WBC 17.7 * Continue to trend * Continue to wean O2 for saturation greater than 90% * Currently on 3L NC * Continue Duonebs and Mucinex * IS 10x while awake 05/26/24 * WBC 16.7 * Continue with current treatment plan 05/27/24 * WBC down to 15.3 (3) Leukocytosis: Code(s): D72.829 - Elevated white blood cell count, unspecified Status: Acute Assessment and Plan: patient does have history chronic elevated white count initial white count was 4 3.4, was to follow with Hematology outpatient. * could also be secondary to patient's UTI and possible pneumonia * continue to trend down to 21.6 today 05/24/24: * Trend 43.4-->29.9-->21.9-->18.8-->16.1-->18.8 today. * Continue meropenem * Continue to trend labs and monitor VS. 05/25/24: * 17.7 today * Continue Meropenem 05/26/24 * WBC 16.7 * Continue Meropenem 05/27/24 * WBC 15.3 * Continue Meropenem (4) Congestive heart failure: Code(s): I50.9 - Heart failure, unspecified Status: Acute Assessment and Plan: Acute on Chronic Diastolic heart failure bilateral crackles at lung bases * BNP >2700 * CXR showing pulmonary edema * last Echo 11/2023 Diastolic heart failure grade 1 with LVEF 60-65% * HX of Aortic Stenosis * gave Lasix x 1 IVP will do daily * Heart healthy diet 05/24/24: * Continue Furosemide daily at 40 mg IVP. * Pt's renal function is tolerating the Lasix dose. 05/25/24 * Continue IV Lasix * Will check BNP today and Chest x-ray 05/26/24 * Lasix 40 mg BID * BNP 1120 05/27/24 * Will give an additional dose of Lasix today in between her regular scheduled doses (5) Hypertension: Code(s): I10 - Essential (primary) hypertension Status: Acute Assessment and Plan: 05/25/24: * Blood pressure ranging 107/51-142/93 * not on any home medications (6) Atrial fibrillation: Qualifiers: Atrial fibrillation type: paroxysmal Qualified Code(s): I48.0 - Paroxysmal atrial fibrillation Code(s): I48.91 - Unspecified atrial fibrillation Status: Acute Assessment and Plan: * Continue Eliquis (7) Type 2 diabetes mellitus: Qualifiers: Diabetes mellitus complication status: without complication Diabetes mellitus residential insulin use: with oil heaterman use Qualified Code(s): E11.9 - Type 2 diabetes mellitus without complications; Z79.4 - residential (current) use of insulin Code(s): E11.9 - Type 2 diabetes mellitus without complications Status: Acute Assessment and Plan: * Hgb A1C 7.8 * Blood sugars [id number] * Accu-Cheks a.c. HS * moderate dose sliding scale insulin * Mealtime replacement insulin ordered * hold oral diabetic medications * Lantus 22 units ordered @ hs * Diabetic diet * Optimize Mckay inhibitors and statins. * Watch for hypoglycemia/hypoglycemic protocol ordered (8) Hypothyroidism: Code(s): E03.9 - Hypothyroidism, unspecified Status: Acute Assessment and Plan: * resume levothyroxine (9) Sepsis: Code(s): A41.9 - Sepsis, unspecified organism Status: Resolved Assessment and Plan: patient presented with elevated white count, tachypnea, lactic acidosis with possible UTI and pneumonia * IV fluid resuscitation. 30mg/kg No septic shock * IV meropenem based on previous urine culture resistant Klebsiella pneumoniae * Monitor lactic acid levels q6hr. Trending down after IV fluids * Repeat CBC, CMP. * Two sets of blood cultures pending * urine cultures pending * Chest x-ray Possible Pneumonia could not be ruled out * Monitor albumin, monitoring of mental status. RESOLVED Time Spent With Patient Time with patient: 15 - 25 minutes Subjective Date/time seen: 05/27/24 07:37 Interval history: Interval history: This is an 83 year old female who presented to the hospital on 05/20/23 with complaints of SOB and productive cough. She was found to have UTI and urine culture showing proteus mirabilis which is susceptible to meropenem. There is not a good oral option for this patient due to the antibiotic resistance. CXR also showing pneumonia in the right lower lobe. WBC 43.4 on arrival. Subjective: Patient is alert and confused. She is still on 2L NC. Lungs course with crackles, 1+ pitting edema. Labs reviewed. Review of Systems Review of Systems: All systems reviewed & are unremarkable except as noted in HPI and below Constitutional: Constitutional: Reports as per HPI and Reports no additional constitutional complaints Eyes: Eyes: Reports as per HPI and Reports no additional eye complaints ENT: Reports system reviewed and no additional complaints, except as documented and Reports as per HPI Cardiovascular: Cardiovascular: Reports as per HPI and Reports no additional cardiovascular complaints Respiratory: Respiratory: Reports as per HPI and Reports no additional respiratory complaints Gastrointestinal: Gastrointestinal: Reports as per HPI and Reports no additional gastrointestinal complaints Genitourinary: Genitourinary: Reports no additional female genitourinary complaints and Reports as per HPI Musculoskeletal: Musculoskeletal: Reports no additional musculoskeletal complaints and Reports as per HPI Integumentary/Breasts: Skin/Breast: Reports system reviewed and no additional complaints, except as docu and Reports as per HPI Neurologic: Reports system reviewed and no additional complaints, except as documented and Reports as per HPI Psychiatric: Psychiatric: Reports no additional psychiatric complaints and Reports as per HPI Exam Narrative: General: In no acute distress, well nourished Cardiac: Normal S1 and S2. Murmur noted, No gallops or friction rubs, peripheral pulses intact. Respiratory: Lungs mildly course to auscultation, bibasilar crackles, no other adventitious lung sounds,currently on 3L NC Gastrointestinal: soft, non-distended, non-tender, normoactive bowel sounds. : voiding without difficulty. Neuro: Alert and oriented x1-2 Objective Data Vital Signs Vital Signs: Vital Signs - 24 hr 05/26/24 08:00 05/26/24 13:05 05/26/24 13:15 Temperature Pulse Rate 77 72 73 Respiratory Rate 18 18 18 Blood Pressure Pulse Oximetry 95 Oxygen Delivery Nasal Cannula Oxygen Flow Rate 2 Fraction of Inspired Oxygen 05/26/24 14:00 05/26/24 20:30 05/26/24 20:33 Temperature 97.8 F Pulse Rate 77 75 75 Respiratory Rate 18 22 H Blood Pressure 119/57 L Pulse Oximetry 95 96 Oxygen Delivery Nasal Cannula Oxygen Flow Rate 2 Fraction of Inspired Oxygen 32 05/26/24 20:50 05/26/24 20:50 05/26/24 20:58 Temperature Pulse Rate 77 73 Respiratory Rate 20 18 Blood Pressure Pulse Oximetry 93 Oxygen Delivery Nasal Cannula Oxygen Flow Rate 2 Fraction of Inspired Oxygen 05/26/24 21:36 05/27/24 02:25 05/27/24 06:00 Temperature 97.5 F L 98.0 F Pulse Rate 75 71 65 Respiratory Rate 22 H 18 18 Blood Pressure 117/53 L 142/67 H Pulse Oximetry 96 96 Oxygen Delivery Oxygen Flow Rate Fraction of Inspired Oxygen Intake/Output Intake/Output: Intake & Output 05/24/24 05/25/24 05/26/24 05/27/24 23:59 23:59 23:59 23:59 Intake Total 1014 2020 1020 0 Output Total 1974 1765 2400 750 Balance -961 255 -1380 -750 Meds/Results Medications: Active Medications Generic Name Dose Route Start Last Admin Trade Name Freq PRN Reason Stop Dose Admin Acetaminophen 1,000 mg 05/20/24 01:21 Acetaminophen 500 Mg Tablet PO Q6H PRN PAIN 1-3 Hydrocodone Bitart/Acetaminophen 1 tab 05/19/24 16:32 Hydrocodone/Acetaminophen (*Crx) 5-325 Mg Tablet PO Q4H PRN Pain Rated 4-6 Acetic Acid 30 ml 05/25/24 13:50 05/26/24 09:25 Acetic Acid 0.25% Irrig Soln 500 Ml IRRIGATION 30 ml DAILY KATHARINE Administration Albuterol 2 puff 05/20/24 01:21 05/21/24 16:43 Albuterol Sulfate (*Sp) Aerosol 1 Puff INHALATION 2 puff PRN PRN Administration wheezing Albuterol/Ipratropium 3 ml 05/19/24 20:00 05/27/24 02:25 Ipratropium 0.5 Mg/Albuterol Sulfate 2.5 Mg Ampul.Neb 3 Ml NEBULIZE 3 ml Q6HRT KATHARINE Administration Apixaban 5 mg 05/20/24 09:00 05/26/24 20:34 Apixaban 5 Mg Tablet PO 5 mg Q12HR KATHARINE Administration Calcium Carbonate 200 mg 05/20/24 01:47 05/26/24 20:33 Calcium Carbonate (Tums) 500 Mg (200 Mg Elemental) BY MOUTH 200 mg BID PRN Administration Indigestion Dextrose 12.5 gm 05/20/24 01:25 Dextrose 50% 25 Gm/50 Ml Syringe IV PUSH PRN PRN Hypoglycemia Protocol Dorzolamide HCl 2 drop 05/20/24 09:00 05/26/24 20:34 Dorzolamide Hcl 2% Ophth Drops EACH EYE 2 drop 0900,1200,2100 KATHARINE Administration Escitalopram Oxalate 10 mg 05/20/24 21:00 05/26/24 20:33 Escitalopram Oxalate 10 Mg Tablet PO 10 mg QHS KATHARINE Administration Ferrous Sulfate 325 mg 05/20/24 12:00 05/26/24 16:27 Ferrous Sulfate [address] BY MOUTH 325 mg 1200,1700 KATHARINE Administration Flecainide Acetate 50 mg 05/20/24 09:00 05/26/24 20:33 Flecainide Acetate 50 Mg Tablet PO 50 mg Q12HR KATHARINE Administration Furosemide 40 mg 05/26/24 17:00 05/26/24 16:27 Furosemide Inj 40 Mg/4 Ml Vial IV PUSH 40 mg BID KATHARINE Administration Glucagon 1 mg 05/20/24 01:25 Glucagon For Inj 1 Mg Vial IM PRN PRN Hypoglycemia Protocol Glucose 15 gm 05/20/24 01:25 Glucose Oral Gel 15 Gm Of Glucse In 37.5 Gm Tube PO PRN PRN Hypoglycemia Protocol Guaifenesin 1,200 mg 05/21/24 21:00 05/26/24 20:33 Guaifenesin 12 Hr 600 Mg Tabcr PO 1,200 mg Q12HR KATHARINE Administration Hyoscyamine 0.125 mg 05/20/24 01:21 Hyoscyamine Sulfate 0.125 Mg Tablet PO BID PRN cramping Dextrose 1,000 mls @ 100 mls/hr 05/20/24 01:25 Dextrose 5% 1,000 Ml IVPB PRN PRN Hypoglycemia Protocol Meropenem 1 gm in 100 mls @ 200 mls/hr 05/21/24 11:00 05/27/24 03:16 IVPB 05/28/24 03:29 200 mls/hr Q8H KATHARINE Administration Insulin Aspart 3 - 6 units 05/20/24 08:00 05/26/24 16:12 Insulin Aspart (*Bkc) 100 Units/Ml SUB-Q Not Given TIDWM [facility] Protocol Insulin Aspart 10 units 05/25/24 08:00 05/26/24 17:13 Insulin Aspart (*Bkc) 100 Units/Ml SUB-Q 10 units TIDWM KATHARINE Administration Insulin Glargine 25 units 05/20/24 01:30 05/26/24 20:36 Insulin Glargine (*Bkc) 100 Units/Ml SUB-Q Not Given HS [facility] Levothyroxine Sodium 75 mcg 05/20/24 06:30 05/27/24 06:17 Levothyroxine Sodium 75 Mcg Tablet PO 75 mcg [id number] KATHARINE Administration Levothyroxine Sodium 150 mcg 05/23/24 06:30 05/23/24 05:26 Levothyroxine Sodium 150 Mcg Tablet PO 150 mcg [id number]@0630 KATHARINE Administration Loratadine 10 mg 05/21/24 21:00 05/26/24 20:34 Loratadine 10 Mg Tablet PO 10 mg QHS KATHARINE Administration Melatonin 5 mg 05/20/24 21:00 05/26/24 20:33 Melatonin 5 Mg Tablet PO 5 mg HS [facility] Administration Miconazole Nitrate 1 applic 05/22/24 21:00 05/26/24 21:44 Miconazole Nitrate 2% Cream 30 Gm Tube TOPICAL 1 applic Q12HR [facility] Administration Nitroglycerin 0.4 mg 05/20/24 01:21 Nitroglycerin Sl 0.4 Mg Tablet SUBLINGUAL PRN PRN Chest Pain Nystatin 5 ml 05/20/24 09:00 05/26/24 20:33 Nystatin 100,000 Units/Ml Susp 5 Ml Oral.Susp PO 5 ml QID [facility] Administration Ondansetron HCl 4 mg 05/21/24 10:18 05/21/24 17:35 Ondansetron Inj 4 Mg/2 Ml Vial IV PUSH 4 mg Q6H PRN Administration Nausea And Vomiting Pantoprazole Sodium 40 mg 05/20/24 09:00 05/26/24 08:41 Pantoprazole 40 Mg Tablet PO 40 mg DAILY KATHARINE Administration Rosuvastatin Calcium 10 mg 05/20/24 21:00 05/26/24 20:33 Rosuvastatin 10 Mg Tablet PO 10 mg HS [facility] Administration Saccharomyces Boulardii 250 mg 05/20/24 09:00 05/26/24 16:27 Saccharomyces Boulardii 250 Mg Capsule PO 250 mg BID KATHARINE Administration Radiology Results: ITS Impressions Chest X-Ray 05/25/24 15:59 Impression: 1: Diffuse bilateral airspace disease, most likely pulmonary edema. Pneumonia less favored. Labs Labs: Laboratory Results - last 24 hr 05/26/24 05/26/24 05/26/24 07:49 11:22 16:03 Sodium Potassium Chloride Carbon Dioxide Anion Gap BUN Creatinine Estim Creat Clear Calc Estimated GFR Glucose POC Capillary Glucose 147 H 264 H 159 H Calcium Magnesium Total Bilirubin AST ALT Alkaline Phosphatase Total Protein Albumin 05/26/24 05/27/24 20:33 07:13 Sodium 133 L Potassium 3.8 Chloride 104 Carbon Dioxide 27 Anion Gap 2 L BUN 10 Creatinine 0.50 L Estim Creat Clear Calc 76 Estimated GFR > 60 Glucose 132 H POC Capillary Glucose 136 H Calcium 9.2 Magnesium 2.4 H Total Bilirubin 0.5 AST 21 ALT 15 Alkaline Phosphatase 98 Total Protein 6.0 L Albumin 2.7 L Quality VTE Prophylaxis VTE prophylaxis: pharmacologic ordered
[2024-05-27 07:46] LABS: Glucose Point of Care 137 mg/dl (65-105)
[2024-05-27] MEDS: PANTOPRAZOLE 40 MG TABLET PO (09:00)
[2024-05-27] MEDS: FLECAINIDE ACETATE 50 MG TABLET PO ×2 (09:00→20:10)
[2024-05-27] MEDS: guaiFENesin 12 HR 600 MG TABCR 1200 MG PO ×2 (09:00→20:10)
[2024-05-27] MEDS: APIXABAN 5 MG TABLET PO ×2 (09:02→20:11)
[2024-05-27] MEDS: NYSTATIN 100,000 UNITS/ML SUSP 5 ML ORAL.SUSP PO ×4 (09:02→20:19)
[2024-05-27] MEDS: SACCHAROMYCES BOULARDII 250 MG CAPSULE PO ×2 (09:02→18:24)
[2024-05-27] MEDS: FUROSEMIDE INJ 40 MG/4 ML VIAL IV PUSH ×3 (09:02→18:24)
[2024-05-27] MEDS: DORZOLAMIDE HCL 2% OPHTH DROPS 2 DROP EACH EYE ×3 (09:03→20:17)
[2024-05-27 10:19] LABS: Glucose Point of Care 241 mg/dl (65-105)
[2024-05-27] MEDS: INSULIN ASPART (*BKC) 100 UNITS/ML 10 UNITS SUB-Q ×2 (10:20→12:13)
[2024-05-27 12:01] LABS: Glucose Point of Care 244 mg/dl (65-105)
[2024-05-27] MEDS: INSULIN ASPART (*BKC) 100 UNITS/ML SUB-Q (12:14)
[2024-05-27] MEDS: FERROUS SULFATE 325 MG TABLET DR BY MOUTH ×2 (12:16→18:30)
[2024-05-27] MEDS: MICONAZOLE NITRATE 2% CREAM 30 GM TUBE 1 APPLIC TOPICAL ×2 (14:47→20:20)
[2024-05-27 16:46] LABS: Glucose Point of Care 121 mg/dl (65-105)
[2024-05-27] MEDS: ROSUVASTATIN 10 MG TABLET PO (20:10)
[2024-05-27] MEDS: LORATADINE 10 MG TABLET PO (20:10)
[2024-05-27] MEDS: ESCITALOPRAM OXALATE 10 MG TABLET PO (20:11)
[2024-05-27] MEDS: MELATONIN 5 MG TABLET PO (20:11)
[2024-05-27] MEDS: INSULIN GLARGINE (*BKC) 100 UNITS/ML 25 UNITS SUB-Q (20:32)
[2024-05-27 21:05] LABS: Glucose Point of Care 231 mg/dl (65-105)
[2024-05-27] MEDS: guaiFENesin/CODEINE (*CRX) 200/20 MG 10 ML SYRUP PO (23:24)
[2024-05-28] VITALS (14 sets, daily range): BP systolic 128–140; BP diastolic 44–65; PULSE 68–77; RESP 16–20; TEMP 36–36.6; O2SAT 93–97
[2024-05-28] MEDS: MEROPENEM 1 GM/NS 100 ML 1 GM/100 ML BAG IVPB (02:55)
[2024-05-28] MEDS: IPRATROPIUM 0.5 MG/ALBUTEROL SULFATE 2.5 MG AMPUL.NEB 3 ML NEBULIZE ×4 (04:05→21:30)
[2024-05-28] MEDS: LEVOTHYROXINE SODIUM 75 MCG TABLET PO (05:52)
[2024-05-28 06:37] LABS: Basophils Absolute Auto 0.1 K/mm3 (0.0-0.1); Basophils Percent Auto 0.8 % (0.2-1.2); Eosinophils Absolute Auto 0.4 K/mm3 (0-0.3); Eosinophils Percent Auto 2.8 % (0-4.4); Hematocrit 40.1 % (37.0-47.0); Hemoglobin 12.7 g/dL (12.0-15.0); Immature Granulocyte Absolute 0.25 K/mm3 (0.00-0.031); Immature Granulocyte Percent A 1.9 % (0-0.5); Lymphocytes Absolute Auto 1.24 K/mm3 (0.9-3.2); Lymphocytes Percent Auto 9.6 % (18.3-44.2); Mean Corpuscular HGB Conc 31.7 g/dl (32-36); Mean Corpuscular Hemoglobin 27.1 pg (26-34); Mean Corpuscular Volume 85.7 fl (80-100); Monocytes Percent Auto 23.5 % (2.6-8.5); Neutrophils Percent Auto 61.4 % (45.5-73.1); Platelet Count Result 328 k/mm3 (150-375); Red Blood Count 4.68 M/mm3 (4.2-5.4); Red Cell Distribution Width 13.2 % (11.5-14.5)
[2024-05-28 08:18] LABS: Glucose Point of Care 147 mg/dl (65-105)
[2024-05-28] MEDS: FUROSEMIDE INJ 40 MG/4 ML VIAL IV PUSH ×2 (08:44→17:58)
[2024-05-28] MEDS: FLECAINIDE ACETATE 50 MG TABLET PO ×2 (08:44→20:18)
[2024-05-28] MEDS: PANTOPRAZOLE 40 MG TABLET PO (08:44)
[2024-05-28] MEDS: SACCHAROMYCES BOULARDII 250 MG CAPSULE PO ×2 (08:44→17:58)
[2024-05-28] MEDS: guaiFENesin 12 HR 600 MG TABCR 1200 MG PO ×2 (08:45→20:17)
[2024-05-28] MEDS: APIXABAN 5 MG TABLET PO ×2 (08:45→20:18)
[2024-05-28] MEDS: ACETIC ACID 0.25% IRRIG SOLN 500 ML 30 ML IRRIGATION (08:45)
[2024-05-28] MEDS: DORZOLAMIDE HCL 2% OPHTH DROPS 2 DROP EACH EYE ×3 (08:46→20:18)
[2024-05-28] MEDS: NYSTATIN 100,000 UNITS/ML SUSP 5 ML ORAL.SUSP PO ×4 (08:48→20:18)
[2024-05-28] MEDS: MICONAZOLE NITRATE 2% CREAM 30 GM TUBE 1 APPLIC TOPICAL ×2 (08:54→20:18)
[2024-05-28 11:26] LABS: Glucose Point of Care 227 mg/dl (65-105)
[2024-05-28] MEDS: FERROUS SULFATE 325 MG TABLET DR BY MOUTH ×2 (12:49→17:59)
[2024-05-28] MEDS: INSULIN ASPART (*BKC) 100 UNITS/ML 10 UNITS SUB-Q ×2 (12:56→17:59)
[2024-05-28] MEDS: INSULIN ASPART (*BKC) 100 UNITS/ML SUB-Q (12:57)
--- NOTE | 2024-05-28 15:41 | PM.DS ---
DS: Admitting Diagnosis Discharge Date 05/28/24 Admitting Diagnosis Pneumonia Leukocytosis UTI Hypothyroidism Type 2 diabetes mellitus Chronic anticoagulation Paroxysmal atrial fibrillation Hypertension DS: Discharge Diagnosis Discharge Diagnosis (1) UTI (urinary tract infection): Qualifiers: Hematuria presence: with hematuria Urinary tract infection type: acute cystitis Qualified Code(s): N30.01 - Acute cystitis with hematuria Code(s): N39.0 - Urinary tract infection, site not specified Status: Acute (2) Pneumonia: Code(s): J18.9 - Pneumonia, unspecified organism Status: Acute (3) Leukocytosis: Code(s): D72.829 - Elevated white blood cell count, unspecified Status: Acute (4) Congestive heart failure: Code(s): I50.9 - Heart failure, unspecified Status: Acute (5) Hypertension: Code(s): I10 - Essential (primary) hypertension Status: Acute (6) Atrial fibrillation: Qualifiers: Atrial fibrillation type: paroxysmal Qualified Code(s): I48.0 - Paroxysmal atrial fibrillation Code(s): I48.91 - Unspecified atrial fibrillation Status: Acute (7) Type 2 diabetes mellitus: Qualifiers: Diabetes mellitus meterman insulin use: with nursing home use Diabetes mellitus complication status: without complication Qualified Code(s): E11.9 - Type 2 diabetes mellitus without complications; Z79.4 - intermodal customer service (current) use of insulin Code(s): E11.9 - Type 2 diabetes mellitus without complications Status: Acute (8) Hypothyroidism: Code(s): E03.9 - Hypothyroidism, unspecified Status: Acute (9) Sepsis: Code(s): A41.9 - Sepsis, unspecified organism Status: Resolved DS: Summary Hospital Course Reason for hospitalization: Pneumonia Leukocytosis UTI Hypothyroidism Type 2 diabetes mellitus Chronic anticoagulation Paroxysmal atrial fibrillation Hypertension Hospital Course: This is an 83 year old female who presented to the hospital on 05/20/23 with complaints of SOB and productive cough. She was found to have UTI and urine culture showing proteus mirabilis which is susceptible to meropenem. There is not a good oral option for this patient due to the antibiotic resistance. CXR also showing pneumonia in the right lower lobe. WBC 43.4 on arrival. Patient finished her meropenem today. she is stable for discharge back to her facility today. She remains on 2L NC and will continue to wean for saturation greater than 92%. Final diagnosis: Sepsis, UTI, pneumonia Status at Discharge Cognitive/behavioral status at discharge: Alert oriented x1-2 Functional status at discharge: uses cane/walker Overall status at discharge: patient is progressing back to baseline Time Spent with Patient Time attestation: Total time spent providing and/or coordinating discharge services: Time spent: Greater than 30 minutes Exam Narrative: General: In no acute distress, well nourished Cardiac: Normal S1 and S2. Murmur noted, No gallops or friction rubs, peripheral pulses intact. Respiratory: Lungs clear in upper lobes, diminished in the bases, no other adventitious lung sounds,currently on 2L NC Gastrointestinal: soft, non-distended, non-tender, normoactive bowel sounds. : voiding without difficulty. Neuro: Alert and oriented x1-2 DS: Data Data Completed and Pending Completed studies during hospitalization: CXR x3 Pending studies at discharge: none Labs on day of discharge: Labs from last 24 hours 05/28/24 05/28/24 05/28/24 11:23 07:39 05:50 WBC 13.0 H RBC 4.68 Hgb 12.7 Hct 40.1 MCV 85.7 MCH 27.1 MCHC 31.7 L RDW 13.2 Plt Count 328 MPV 11.0 H Immature Gran % (Auto) 1.9 H Neut % (Auto) 61.4 Lymph % (Auto) 9.6 L [place] % (Auto) 23.5 H Eos % (Auto) 2.8 Baso % (Auto) 0.8 Lymph # (Auto) 1.24 [place] # (Auto) 3.0 H Eos # (Auto) 0.4 H Baso # (Auto) 0.1 Abs Immat Gran (auto) 0.25 H Absolute Neuts (auto) 8.0 H Absolute Nucleated RBC 0.000 Nucleated RBC % 0.0 POC Capillary Glucose 227 H 147 H 05/27/24 05/27/24 20:26 16:36 WBC RBC Hgb Hct MCV MCH MCHC RDW Plt Count MPV Immature Gran % (Auto) Neut % (Auto) Lymph % (Auto) [place] % (Auto) Eos % (Auto) Baso % (Auto) Lymph # (Auto) [place] # (Auto) Eos # (Auto) Baso # (Auto) Abs Immat Gran (auto) Absolute Neuts (auto) Absolute Nucleated RBC Nucleated RBC % POC Capillary Glucose 231 H 121 H Procedures/Treatments: None Discharge Plan Discharge Attending physician on discharge: Oscar Rivas Consulting providers: Jenny Bowman; Ian Reddy Discharging Clinician: Jenny Bowman Anticipated Discharge Date/Time: 05/28/24 15:29 Patient Disposition: Home, Self-Care Activity: as tolerated Diet: as tolerated Discharge Instructions: Follow up with primary care doctor in 1 week. Patient Instructions: Antibiotic Form, Heart Failure (GEN), Sepsis (GEN), Hypercoagulation (GEN), Pneumonia (GEN), Blood Thinners (GEN) Patient Language: Czech Stand Alone Forms: General Discharge Information, Shelter Discharge Follow-up/Referrals: Josep,Elizabeth Christensen MD [Primary Care Provider] - 1 Week Discharge Medications: New loratadine 10 mg Tablet 10 mg PO QHS Qty: 20 0RF Continued escitalopram oxalate 10 mg tablet 10 mg PO QHS Arginaid 4.5 gram-156 mg/9.2 gram Powder In Packet 1 g PO BID Rx Instructions: 1 packet bid furosemide 40 mg Tablet 40 mg PO DAILY Qty: 30 0RF levothyroxine 75 mcg tablet 150 mcg PO .qsunday Qty: 7 0RF Rx Instructions: takes on Friday pantoprazole 40 mg tablet,delayed release (DR/EC) 40 mg PO DAILY ciclopirox 0.77 % gel 1 applic TOPICAL HS Rx Instructions: Apply to affected fingernails albuterol sulfate 90 mcg/actuation HFA aerosol inhaler 2 puff INHALATION PRN ferrous sulfate [Kassie-Time] 325 mg (65 mg iron) tablet 325 mg PO BID insulin lispro [Humalog KwikPen Insulin] 100 unit/mL insulin pen 1 sliding scale dose SUBCUT TID triamcinolone acetonide 0.1 % cream 1 applic TOPICAL BID PRN (Reason: rash) nystatin 100,000 unit/mL suspension 5 ml PO QID insulin lispro [Humalog KwikPen Insulin] 10 unit subcut TID insulin glargine [Lantus Solostar U-100 Insulin] 100 unit/mL (3 mL) insulin pen 22 unit subcut QPM insulin glargine [Lantus U-100 Insulin] 100 unit/mL Solution 25 unit subcut DAILY levothyroxine 150 mcg tablet 150 mcg PO .friday ketoconazole 2 % cream 1 applic TOPICAL BID cranberry extract 425 mg Capsule 425 mg PO DAILY Rx Instructions: administer with a meal flecainide 50 mg tablet 50 mg PO BID dorzolamide 2 % drops 2 drp EACH EYE TID Rx Instructions: daily, noon and HS Eliquis 5 mg tablet 5 mg PO BID rosuvastatin 10 mg tablet 10 mg PO HS nitroglycerin 0.4 mg tablet, sublingual 0.4 mg sublingual PRN PRN (Reason: Chest Pain) Rx Instructions: 1 tab po PRN q 5mins x 3 doses levothyroxine 75 mcg tablet 75 mcg PO DAILY Rx Instructions: takes Friday-Friday bromfenac 0.09 % drops 1 drp RIGHT EYE HS acetaminophen 500 mg capsule 1,000 mg PO Q6H PRN (Reason: pain) melatonin 5 mg Tablet 5 mg PO HS Qty: 30 0RF Antacid (calcium carbonate) 500 mg PO TID PRN (Reason: Indigestion) hyoscyamine sulfate 0.125 mg Tablet 0.125 mg PO BID PRN (Reason: cramping) nystatin 100,000 unit/gram cream 1 applic TOPICAL BID Rx Instructions: mix with zinc oxide cream and apply to groin and brittany area BID and PRN acetic acid 0.25 % Solution 30 ml irrigation EVERY OTHER DAY Patient Comments: 30 ml irrigation every shift to flush suprapubic catheter every day Rx Instructions: Flush suprapubic catheter Fri, Fri, Friday Saccharomyces boulardii [Florastor] 250 mg Capsule 250 mg PO BID Date of admission: 05/20/24 16:10 Primary Care Provider: JosepElizabeth Admitting Provider: Adama Mora Attending physician on admission: Ashlee Sanford Condition: Improved Quality VTE Prophylaxis VTE prophylaxis: pharmacologic ordered Hospitalist MIPS Heart Failure (Exclusion) Patient has history of Heart Transplant or Left Ventricular Assistive Device?: No IF YES, STOP HERE Heart Failure (Qualifier) Patient has current or prior documentation of LVEF less than or equal to 40%, or mod/servere depressed LVSF?: No IF NO, STOP HERE
[2024-05-28 16:52] LABS: Glucose Point of Care 143 mg/dl (65-105)
[2024-05-28] MEDS: ESCITALOPRAM OXALATE 10 MG TABLET PO (20:18)
[2024-05-28] MEDS: LORATADINE 10 MG TABLET PO (20:18)
[2024-05-28] MEDS: ROSUVASTATIN 10 MG TABLET PO (20:18)
[2024-05-28] MEDS: MELATONIN 5 MG TABLET PO (20:18)
[2024-05-28] MEDS: INSULIN GLARGINE (*BKC) 100 UNITS/ML 25 UNITS SUB-Q (20:23)
[2024-05-28 21:29] LABS: Glucose Point of Care 139 mg/dl (65-105)
--- NOTE | 2024-05-28 23:32 | PC.NURSE ---
Pt just left per EMS. IV removed, pt cleaned up, and report given to EMS. Day nurse gave report to Kanika at [facility]. All pt belongings loaded on stretcher with pt per EMS.
== END 2024-05-28 23:42 | DRG 698 ==
LOC: ANHED 14:47 → ANHIMU 17:15 → ANH3MEDSUR 05-20 12:04
PROVIDERS: General Practice; Internal Medicine; Nurse Practitioner; Nurse Practitioner Adult Health; Nurse Practitioner Family; Admitting Provider Internal Medicine; Emergency Provider Emergency Medicine; PCP Family Medicine; Visit Provider Nurse Practitioner Acute Care
DX: T83.510A Infection and inflammatory reaction due to cystostomy catheter, initial encounter (principal); A41.9 Sepsis, unspecified organism; I50.43 Acute on chronic combined systolic (congestive) and diastolic (congestive) heart failure; J18.9 Pneumonia, unspecified organism; N39.0 Urinary tract infection, site not specified; T83.090A Other mechanical complication of cystostomy catheter, initial encounter; B96.4 Proteus (mirabilis) (morganii) as the cause of diseases classified elsewhere; I11.0 Hypertensive heart disease with heart failure; E11.9 Type 2 diabetes mellitus without complications; E03.9 Hypothyroidism, unspecified; I48.0 Paroxysmal atrial fibrillation; Z79.01 Long term (current) use of anticoagulants; Z79.4 Long term (current) use of insulin
CPT/HCPCS: 36415; 36600; 71045; 71046; 80053; 81001; 82805; 82948; 83036; 83605; 83735; 83880; 85018; 85025; 87040; 87086; 87186; 87637; 87641; 93005; 94640; 94667; 94668; 96365; 96367; 96375; 99285; A9270; G0378; J0456; J0696; J1815; J1940; J2185; J2405; J7030

== ENCOUNTER 2024-06-02 20:31 | Inpatient (IN) | payer MEDICARE, MEDICAID, SELFPAY ==
--- NOTE | ~2024-06-02 | XR_ITS ---
CHEST RADIOGRAPH CLINICAL HISTORY: New productive cough . COMPARISON: 06/02/2024 TECHNIQUE: Single portable view of the chest. FINDINGS Hazy opacification of the right hemithorax with compared to the left. Blunting of the bilateral costophrenic sulci consistent with small bilateral pleural effusions. Interstitial thickening is detected bilaterally, likely chronic. Multiple calcified lymph nodes within the mediastinum. The remainder of the cardiomediastinal silhouette is otherwise unremarkable. IMPRESSION: Small bilateral pleural effusions with increased opacification of the entirety of the right hemithora x compared to previous studies. Reviewed, dictated and finalized at location A. E CLERK IMPRESSION: Small bilateral pleural effusions with increased opacification of the entirety of the right hemithorax compared to previous studies.
--- NOTE | ~2024-06-02 | XR_ITS ---
XR chest 1V portable 06/02/2024 21:02 Indication: Shortness of breath and chest pain Procedure: AP portable chest Comparison: Comparison to multiple prior studies sequentially, with oldest reviewed study dated 11/15. Findings: Cardiomegaly. Mild interstitial edema. Small right pleural effusion. Atherosclerosis of the aorta. Impression: 1: Cardiomegaly with mild interstitial edema. Reviewed, dictated and finalized at location A. LLMENT COUNSELOR Impression: 1: Cardiomegaly with mild interstitial edema.
[2024-06-02 20:34] VITALS: BP 139/56; PULSE 79; RESP 21; TEMP 36.6; O2SAT 95
--- NOTE | 2024-06-02 20:37 | ECG_ITS ---
Test Date: 2024-06-02 20:43:55 Measurements Intervals [place] Rate: 78 P: 46 MA: 171 QRS: -49 QRSD: 113 T: 56 QT: 407 QTc: 465 Interpretive Statements SINUS RHYTHM PATTERN CONSISTENT WITH PULMONARY DISEASE LEFT ANTERIOR FASCICULAR BLOCK [QRS AXIS <= -45, QR IN I, RS IN II] Compared to ECG 05/19/2024 14:40:44 T-wave abnormality no longer present Electronically Signed On 06-03-2024 09:20:10 GEAR CHANGER by Phillip Zapata M.D.
[2024-06-02 20:40] VITALS: PULSE 79; O2SAT 96
[2024-06-02 21:02] LABS: Basophils Absolute Auto 0.1 K/mm3 (0.0-0.1); Basophils Percent Auto 0.5 % (0.2-1.2); Eosinophils Absolute Auto 0.2 K/mm3 (0-0.3); Eosinophils Percent Auto 1.3 % (0-4.4); Hematocrit 39.8 % (37.0-47.0); Hemoglobin 12.7 g/dL (12.0-15.0); Immature Granulocyte Absolute 0.12 K/mm3 (0.00-0.031); Immature Granulocyte Percent A 0.9 % (0-0.5); Lymphocytes Absolute Auto 1.96 K/mm3 (0.9-3.2); Lymphocytes Percent Auto 15.5 % (18.3-44.2); Mean Corpuscular HGB Conc 31.9 g/dl (32-36); Mean Corpuscular Hemoglobin 27.1 pg (26-34); Mean Corpuscular Volume 84.9 fl (80-100); Mean Platelet Volume 11.2 fl (7.4-10.4); Monocytes Absolute Auto 2.3 K/mm3 (0.1-0.6); Monocytes Percent Auto 17.8 % (2.6-8.5); Neutrophils Absolute Auto 8.1 K/mm3 (1.3-6.7); Platelet Count Result 213 k/mm3 (150-375); Red Blood Count 4.69 M/mm3 (4.2-5.4); Red Cell Distribution Width 13.3 % (11.5-14.5); White Blood Count 12.7 K/mm3 (4.5-10.0)
[2024-06-02] MEDS: ASPIRIN 81 MG CHEWABLE TABLET 324 MG PO (21:02)
[2024-06-02 21:38] LABS: Influenza A QL RT-PCR Negative (Negative); Influenza B QL RT-PCR Negative (Negative); RSV RNA, RT-PCR Negative (Negative); SARS-CoV-2 RNA PCR Negative (Negative)
--- NOTE | 2024-06-02 21:54 | PC.NURSE ---
This RN burped pt colostomy bag at this time.
[2024-06-02 22:01] LABS: Alanine Aminotransferase 16 U/L (6-35); Albumin Level 3.2 g/dL (3.5-5.1); Alkaline Phosphatase 125 U/L (38-126); Anion Gap 5 mmol/L (4-12); Aspartate Amino Transferase 17 U/L (14-36); Bilirubin,Total 0.4 mg/dL (0.2-1.3); Blood Urea Nitrogen 15 mg/dL (7-17); Calcium 9.8 mg/dL (8.4-10.2); Carbon Dioxide 26 mmol/L (22-30); Chloride 104 mmol/L (98-107); Estimated Glomerular Filt Rate > 60; Glucose 208 mg/dL (65-110); Lipase 153 U/L (23-300); Potassium 3.7 mmol/L (3.4-5.0); Sodium 135 mmol/L (137-145)
[2024-06-02 22:06] LABS: INR 1.3; Partial Thromboplastin Time 32.3 Seconds (22.3-36.8); Prothrombin Time 16.5 Seconds (11.1-14.7)
[2024-06-02 22:12] LABS: NT Pro B Type Natriuretic Pept 503 pg/mL (19.9-100); Troponin I < 0.012 ng/mL (0.000-0.034)
[2024-06-02 22:32] VITALS: BP 133/87; PULSE 78; RESP 20; O2SAT 96
[2024-06-02] MEDS: FUROSEMIDE INJ 40 MG/4 ML VIAL IV PUSH (22:32)
[2024-06-02] MEDS: IPRATROPIUM BR 0.02% INH SOLN 0.5 MG/2.5 ML VIAL 1.5 MG INHALATION (22:38)
[2024-06-02] MEDS: LEVALBUTEROL NEB 1.25 MG/3 ML 2.5 MG INHALATION (22:38)
[2024-06-02 22:45] VITALS: PULSE 77; RESP 19
--- NOTE | 2024-06-02 23:27 | ED_ITS ---
HPI - General Adult General Chief complaint: Shortness of Breath/Dyspnea Stated complaint: SOB, CHEST PRESSURE Time Seen by Provider: 06/02/24 21:51 Source: patient Mode of arrival: EMS Limitations: no limitations History of Present Illness HPI narrative: Patient is an 83-year-old female, past medical history of COPD, CHF, MS with suprapubic catheter, colostomy, pAFIB on eliquis, who presents to the ED via EMS with report of SOB. Patient is resident of [facility]. She is bed-bound at baseline. Daughter reports she was recently admitted from 05/19- here for sepsis, UTI, pneumonia. Has been on 2 L nasal cannula at all times since leaving the hospital. Over the last couple days, nursing staff has noted that patient has been increasingly short of breath and has had a worsening cough. She was sent back to the ED today. Patient reports having intermittent chest pressure, denies chest pain currently. Denies significant lower extremity edema, but does always have some component of this as she is nonambulatory. Denies known fevers. Related Data Home Medications ?Medication ?Instructions ?Recorded ?Confirmed ?Last Taken ?Type apixaban 5 mg tablet (Eliquis) 5 mg PO BID 03/11/22 05/19/24 05/19/24 History cranberry extract 425 mg capsule 425 mg PO DAILY 03/11/22 05/19/24 05/19/24 History dorzolamide 2 % eye drops 2 drp EACH EYE TID 03/11/22 05/19/24 05/19/24 History flecainide 50 mg tablet 50 mg PO BID 03/11/22 05/19/24 05/19/24 History levothyroxine 75 mcg tablet 75 mcg PO DAILY 03/11/22 05/19/24 05/19/24 History nitroglycerin 0.4 mg sublingual 0.4 mg sublingual PRN PRN Chest 03/11/22 05/19/24 12/09/22 19:00 History tablet Pain rosuvastatin 10 mg tablet 10 mg PO HS 03/11/22 05/19/24 05/19/24 History arginine-vitamin C-vitamin E oral 1 g PO BID 10/28/22 05/19/24 05/19/24 History 4.5 gram-156 mg/9.2 gram powder pkt (Arginaid) escitalopram oxalate 10 mg tablet 10 mg PO QHS 10/28/22 05/19/24 05/17/24 History acetaminophen 500 mg capsule 1,000 mg PO Q6H PRN pain 11/03/22 05/19/24 05/18/24 History bromfenac 0.09 % eye drops 1 drp RIGHT EYE HS 11/03/22 05/19/24 05/18/24 History Antacid (calcium carbonate) 500 mg PO TID PRN Indigestion 05/11/23 05/20/24 Unknown History Saccharomyces boulardii 250 mg 250 mg PO BID 05/11/23 05/19/24 05/19/24 History capsule (Florastor) acetic acid 0.25 % irrigation 30 ml irrigation EVERY OTHER DAY 05/11/23 05/20/24 Unknown History solution hyoscyamine sulfate 0.125 mg tablet 0.125 mg PO BID PRN cramping 05/11/23 05/19/24 Unknown History nystatin 100,000 unit/gram topical 1 applic topical BID 05/11/23 05/19/24 05/18/24 History cream ciclopirox 0.77 % topical gel 1 applic topical HS 11/13/23 05/19/24 05/18/24 History pantoprazole 40 mg tablet,delayed 40 mg PO DAILY 11/13/23 05/19/24 05/19/24 History release albuterol sulfate 90 mcg/actuation 2 puff inhalation PRN asthma 05/19/24 05/19/24 Unknown History aerosol inhaler ferrous sulfate 325 mg (65 mg 325 mg PO BID 05/19/24 05/19/24 05/19/24 History iron) tablet (Kassie-Time) insulin glargine 100 unit/mL (3 22 unit subcut QPM 05/19/24 05/19/24 05/18/24 History mL) subcutaneous pen (Lantus Solostar U-100 Insulin) insulin glargine 100 unit/mL 25 unit subcut DAILY 05/19/24 05/20/24 05/18/24 History subcutaneous solution (Lantus U-100 Insulin) insulin lispro 10 unit subcut TID 05/19/24 05/20/24 05/19/24 History insulin lispro 100 unit/mL 1 sliding scale dose subcut TID 05/19/24 05/20/2405/19/25 History subcutaneous pen (Humalog KwikPen (U-100) Insulin) nystatin 100,000 unit/mL oral 5 ml PO QID 05/19/24 05/19/24 05/10/24 History suspension triamcinolone acetonide 0.1 % 1 applic topical BID PRN rash 05/19/24 05/20/24 03/08/24 History topical cream ketoconazole 2 % topical cream 1 applic topical BID 05/20/24 05/20/24 Unknown History levothyroxine 150 mcg tablet 150 mcg PO .friday05/20/24 05/20/24 Unknown History Allergies Allergy/AdvReac Type Severity Reaction Status Date / Time black pepper Allergy Unknown Verified 11/18/23 11:20 diltiazem Allergy Unknown Verified 11/18/23 11:20 donepezil Allergy Unknown Verified 11/18/23 11:20 fluticasone Allergy Unknown Verified 11/18/23 11:20 metformin Allergy Unknown Verified 11/18/23 11:20 Review of Systems 2 Review of Systems: All systems reviewed & are unremarkable except as noted in HPI. All systems reviewed & are unremarkable except as noted in HPI and below PMFSH Past Medical History Medical History Chronic anticoagulation Paroxysmal atrial fibrillation Obstructive sleep apnea Noncompliant with CPAP. Transient ischemic attack Gastroesophageal reflux disease Familial spastic paraplegia Glaucoma History of pulmonary embolism Multiple sclerosis Suprapubic catheter in place. 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 History of suprapubic catheter History of hysterectomy Family History Family History Father Spastic paralysis Mother Breast cancer Social History Social History Social History: Surrogate medical decision maker: Ange Reyes or Nancy John, daughters. Code status: Full code. Smoking status: Never smoker Second hand tobacco smoke exposure: No Alcohol intake: never Substance use: never Substance use type: does not use Do You Feel Safe in your Home?: Yes Lack of Transportation: No Lack of Food: Never True Current Housing: I Have Housing Concerned About Future Housing: No Difficulty Paying Gas/Electric Bills: No Difficulty Paying for Meds: No Currently Unemployed: No Education: Don't Know Difficulty w/ Childcare or Family Care: No Living arrangements: halfway Additional living arrangements comments: [facility]ney Hilton. Has 3 daughters. Additional occupation/education comments: [place]. Spiritual care concerns: No Exam 2 Narrative: GENERAL: Elderly/chronically ill-appearing, well-nourished, non-toxic, in no acute distress. HEAD: Normocephalic, atraumatic. RESPIRATORY: Airway patent, respirations borderline tachypneic but not significantly labored. Frequent coughing on exam. Diffuse rhonchi in lower lobes, scattered expiratory wheezing, most notably throughout R lower lung CARDIOVASCULAR: Regular rate and rhythm without murmurs, rubs, or gallops. ABDOMINAL: Soft, nontender, nondistended. Normoactive BS. MUSCULOSKELETAL: Moves all extremities. No gross deformities. Trace pitting edema BLE. SKIN: Warm, dry, normal color. NEURO: A&O X3. MI'KMAQ. Speech clear. No ataxic movements. PSYCHIATRIC: Appropriate mood and affect. Normal interaction. Course Vital Signs Vital signs: Vital Signs Temperature 97.9 F 06/02/24 20:34 Pulse Rate 79 06/02/24 20:34 Respiratory Rate 21 H 06/02/24 20:34 Blood Pressure 139/56 L 06/02/24 20:34 Pulse Oximetry 95 06/02/24 20:34 Oxygen Delivery Nasal Cannula 06/02/24 20:34 Oxygen Flow Rate 2 06/02/24 20:34 Temperature 97.9 F 06/02/24 20:34 Pulse Rate 88 06/03/24 00:34 Respiratory Rate 18 06/03/24 00:34 Blood Pressure 136/75 06/03/24 00:34 Pulse Oximetry 94 06/03/24 00:34 Oxygen Delivery Nasal Cannula 06/02/24 20:40 Oxygen Flow Rate 2 06/02/24 20:40 Medical Decision Making MDM Narrative Medical decision making narrative: Patient presented to ED with worsening shortness breath/cough, recent admission for pneumonia/sepsis/UTI. Vital signs are stable upon arrival. Patient is mildly tachypneic. Oxygen saturations are ranging in the low 90s on patient's 2 L nasal cannula. EKG is with sinus rhythm, rate controlled, no significant ST changes. Troponin is undetectable x2. Chest x-ray showing cardiomegaly with mild interstitial edema. There is no comment on residual pneumonia. BNP is mildly elevated to 503. She is on Lasix 40 mg daily. Given dose of IV Lasix 40mg here. Echo from last November shows grade 1 diastolic dysfunction. Normal LV EF. Patient is on Eliquis 5 mg b.i.d., low suspicion for PE. Laboratory studies show white blood cell count of 12.7. Kidney function is stable. Viral swabs are negative. Patient with diffuse rhonchi and wheezing on exam. Given hour long DuoNeb in the ED. She was given 10 mg Decadron by EMS prior to arrival. On re-evaluation after breathing treatment, patient is still reporting some shortness of breath. Still with some wheezing. Still borderline tachypneic. Feel she would benefit from continued diuresis and nebulizer treatments for mixed CHF/COPD picture. Discussed this with patient and family. They are in agreement. Will admit for further evaluation. Discussed case with Dr. De Souza, hospitalist, accepted patient for admission. We reviewed chest x-ray together. It does appear slightly improved from previous chest x-ray on 05/25/2024 in terms of vascular congestion, however x-ray today does appear consistent with right lower lobe infiltrate. Will continue to cover for pneumonia. Blood cultures were obtained. Rocephin, azithromycin started in the ED. Will add on vancomycin given recent hospitalization for possible nosocomial pneumonia. Medical Records Medical records reviewed: Yes I reviewed the external patient's medical records. Vital Signs Vital Signs: Vital Signs Temperature 97.9 F 06/02/24 20:34 Pulse Rate 79 06/02/24 20:34 Respiratory Rate 21 H 06/02/24 20:34 Blood Pressure 139/56 L 06/02/24 20:34 Pulse Oximetry 95 06/02/24 20:34 Oxygen Delivery Nasal Cannula 06/02/24 20:34 Oxygen Flow Rate 2 06/02/24 20:34 Temperature 97.9 F 06/02/24 20:34 Pulse Rate 88 06/03/24 00:34 Respiratory Rate 18 06/03/24 00:34 Blood Pressure 136/75 06/03/24 00:34 Pulse Oximetry 94 06/03/24 00:34 Oxygen Delivery Nasal Cannula 06/02/24 20:40 Oxygen Flow Rate 2 06/02/24 20:40 Lab Data Lab results reviewed: Yes I reviewed the patient's lab results. 06/02/24 20:54 06/02/24 21:32 Labs: Lab Results 06/02/24 06/02/24 06/02/24 Range/Units 20:54 21:32 23:41 WBC 12.7 H (4.5-10.0) K/mm3 RBC 4.69 (4.2-5.4) M/mm3 Hgb 12.7 (12.0-15.0) g/dL Hct 39.8 (37.0-47.0) % MCV 84.9 (80-100) fl MCH 27.1 (26-34) pg MCHC 31.9 L (32-36) g/dl RDW 13.3 (11.5-14.5) % Plt Count 213 (150-375) k/mm3 MPV 11.2 H (7.4-10.4) fl Immature Gran % (Auto) 0.9 H (0-0.5) % Neut % (Auto) 64.0 (45.5-73.1) % Lymph % (Auto) 15.5 L (18.3-44.2) % Edgar % (Auto) 17.8 H (2.6-8.5) % Eos % (Auto) 1.3 (0-4.4) % Baso % (Auto) 0.5 (0.2-1.2) % Lymph # (Auto) 1.96 (0.9-3.2) K/mm3 Edgar # (Auto) 2.3 H (0.1-0.6) K/mm3 Eos # (Auto) 0.2 (0-0.3) K/mm3 Baso # (Auto) 0.1 (0.0-0.1) K/mm3 Abs Immat Gran (auto) 0.12 H (0.00-0.031) K/mm3 Absolute Neuts (auto) 8.1 H (1.3-6.7) K/mm3 Absolute Nucleated RBC 0.000 (0.0-0.012) K/mm3 Nucleated RBC % 0.0 (0.0-0.2) % PT 16.5 H (11.1-14.7) Seconds INR 1.3 APTT 32.3 (22.3-36.8) Seconds Sodium 135 L (137-145) mmol/L Potassium 3.7 (3.4-5.0) mmol/L Chloride 104 (98-107) mmol/L Carbon Dioxide 26 (22-30) mmol/L Anion Gap 5 (4-12) mmol/L BUN 15 D (7-17) mg/dL Creatinine 0.59 L (0.7-1.0) mg/dL Estim Creat Clear Calc Not Reportable Estimated GFR > 60 (59 - ) Glucose 208 H (65-110) mg/dL Calcium 9.8 (8.4-10.2) mg/dL Total Bilirubin 0.4 (0.2-1.3) mg/dL AST 17 (14-36) U/L ALT 16 (6-35) U/L Alkaline Phosphatase 125 (38-126) U/L Troponin I < 0.012 < 0.012 (0.000-0.034) ng/mL NT-Pro-B Natriuret Pep Cancelled 503 H Total Protein 7.0 (6.3-8.2) g/dL Albumin 3.2 L (3.5-5.1) g/dL Lipase 153 (23-300) U/L Urine Color Yellow (Yellow) Urine Appearance Cloudy H (Clear) Urine pH 5.0 (5.0-9.0) Ur Specific [place] 1.010 (1.001-1.035) Urine Protein 1+ H (Negative) mg/dL Urine Glucose (UA) Negative (Negative) mg/dL Urine Ketones Negative (Negative) mg/dL Ur Blood (Man) 3+ H (Negative) Urine Nitrate Negative (Negative) Urine Bilirubin Negative (Negative) Urine Urobilinogen 0.2 (<2.0) mg/dL Leukocyte Esterase Rfl Trace H (Negative) ANABELA/UL Urine RBC 21-50 H (0-2) /hpf Urine WBC 6-10 H (0-3) /hpf Ur Squamous Epith Cells None seen (Few) /hpf Urine Bacteria None seen /hpf Urine Casts 3-5 Influenza A (RT-PCR) Negative (Negative) Influenza B (RT-PCR) Negative (Negative) RSV (RT-PCR) Negative (Negative) SARS-CoV-2 RNA (RT-PCR) Negative (Negative) Imaging Data Attestation: I personally reviewed and interpreted this imaging study as follows: Radiologist's impression: ITS Impressions Chest X-Ray 06/02/24 21:16 Impression: 1: Cardiomegaly with mild interstitial edema. ECG Data EKG #1: Attestation: I personally reviewed and interpreted this ECG as follows: ECG completion date: 06/02/24 ECG completion time: 20:43 EKG Interpretation: normal rate (78), sinus rhythm and non-specific ST changes Discharge Plan Discharge Clinical Impression: Acute exacerbation of CHF (congestive heart failure), Pneumonia, Acute exacerbation of chronic obstructive pulmonary disease (COPD) Patient Disposition: Still a Patient Condition: Stable Patient Language: Mongolian Prescriptions: No Action escitalopram oxalate 10 mg tablet 10 mg PO QHS Arginaid 4.5 gram-156 mg/9.2 gram Powder In Packet 1 g PO BID Rx Instructions: 1 packet bid furosemide 40 mg Tablet 40 mg PO DAILY Qty: 30 0RF levothyroxine 75 mcg tablet 150 mcg PO .qsunday Qty: 7 0RF Rx Instructions: takes on Friday pantoprazole 40 mg tablet,delayed release (DR/EC) 40 mg PO DAILY ciclopirox 0.77 % gel 1 applic TOPICAL HS Rx Instructions: Apply to affected fingernails albuterol sulfate 90 mcg/actuation HFA aerosol inhaler 2 puff INHALATION PRN ferrous sulfate [Kassie-Time] 325 mg (65 mg iron) tablet 325 mg PO BID insulin lispro [Humalog KwikPen Insulin] 100 unit/mL insulin pen 1 sliding scale dose SUBCUT TID triamcinolone acetonide 0.1 % cream 1 applic TOPICAL BID PRN (Reason: rash) nystatin 100,000 unit/mL suspension 5 ml PO QID insulin lispro [Humalog KwikPen Insulin] 10 unit subcut TID insulin glargine [Lantus Solostar U-100 Insulin] 100 unit/mL (3 mL) insulin pen 22 unit subcut QPM insulin glargine [Lantus U-100 Insulin] 100 unit/mL Solution 25 unit subcut DAILY levothyroxine 150 mcg tablet 150 mcg PO .friday ketoconazole 2 % cream 1 applic TOPICAL BID loratadine 10 mg Tablet 10 mg PO QHS Qty: 20 0RF cranberry extract 425 mg Capsule 425 mg PO DAILY Rx Instructions: administer with a meal flecainide 50 mg tablet 50 mg PO BID dorzolamide 2 % drops 2 drp EACH EYE TID Rx Instructions: daily, noon and HS Eliquis 5 mg tablet 5 mg PO BID rosuvastatin 10 mg tablet 10 mg PO HS nitroglycerin 0.4 mg tablet, sublingual 0.4 mg sublingual PRN PRN (Reason: Chest Pain) Rx Instructions: 1 tab po PRN q 5mins x 3 doses levothyroxine 75 mcg tablet 75 mcg PO DAILY Rx Instructions: takes Friday-Friday bromfenac 0.09 % drops 1 drp RIGHT EYE HS acetaminophen 500 mg capsule 1,000 mg PO Q6H PRN (Reason: pain) melatonin 5 mg Tablet 5 mg PO HS Qty: 30 0RF Antacid (calcium carbonate) 500 mg PO TID PRN (Reason: Indigestion) hyoscyamine sulfate 0.125 mg Tablet 0.125 mg PO BID PRN (Reason: cramping) nystatin 100,000 unit/gram cream 1 applic TOPICAL BID Rx Instructions: mix with zinc oxide cream and apply to groin and brittany area BID and PRN acetic acid 0.25 % Solution 30 ml irrigation EVERY OTHER DAY Patient Comments: 30 ml irrigation every shift to flush suprapubic catheter every day Rx Instructions: Flush suprapubic catheter Fri, Fri, Friday Saccharomyces boulardii [Florastor] 250 mg Capsule 250 mg PO BID Follow-up/Referrals: UNKNOWN,DOCTOR [Primary Care Provider] -
--- NOTE | 2024-06-02 23:31 | ECG_ITS ---
Test Date: 2024-06-02 23:48:07 Measurements Intervals [place] Rate: 84 P: 40 [place]: 162 QRS: -51 QRSD: 124 T: 53 QT: 316 QTc: 374 Interpretive Statements SINUS RHYTHM LEFT ANTERIOR FASCICULAR BLOCK [QRS AXIS <= -45, QR IN I, RS IN II] Electronically Signed On 06-03-2024 09:22:05 LOAN CONSULTANT by Phillip Zapata M.D.
[2024-06-02 23:55] VITALS: PULSE 86; RESP 19
[2024-06-02 23:57] LABS: Add Urine Microscopic? YES; Appearance Urine Cloudy (Clear); Bacteria Urine None Seen /hpf; Bilirubin Urine Negative (Negative); Blood Urine 3+ (Negative); Color Urine Yellow (Yellow); Glucose Urine UA Negative (Negative); Ketones Urine Negative (Negative); Leukocyte Esterase Ur Trace LEU/UL (Negative); Nitrate Urine Negative (Negative); Protein Urine 1+ mg/dL (Negative); RBC Urine 21-50 /hpf (0-2); Squamous Epithelial Cell Urine None Seen /hpf (Few); Urobilinogen Urine 0.2 mg/dL (<2.0)
[2024-06-03] VITALS (24 sets, daily range): BP systolic 126–150; BP diastolic 47–75; PULSE 70–88; RESP 16–20; TEMP 36.1–36.7; O2SAT 93–98
[2024-06-03 00:11] LABS: Troponin I < 0.012 ng/mL (0.000-0.034)
--- NOTE | 2024-06-03 00:38 | PM.IMHP ---
H&P: HPI History of Present Illness Date/Time: 06/03/24 00:38 Chief Complaint: Shortness of breath Narrative: This is an 83-year-old female with past medical history significant for hypoxic respiratory failure on home O2 2 L by nasal cannula, after recent admission and discharge from [facility], paroxysmal atrial fibrillation, functional quadriplegic, Phyllis lift, ileostomy in place, rate controlled anticoagulated, insulin-dependent diabetes mellitus, hypothyroidism, patient resides at [facility] [place] was brought to the ED for evaluation due to productive cough, shortness of breath, wheezing. Patient has been admitted for further evaluation management and treatment. XR chest 1V portable 06/02/2024 21:02 Indication: Shortness of breath and chest pain Procedure: AP portable chest Comparison: Comparison to multiple prior studies sequentially, with oldest reviewed study dated 11/16/2023. Findings: Cardiomegaly. Mild interstitial edema. Small right pleural effusion. Atherosclerosis of the aorta. Impression: 1: Cardiomegaly with mild interstitial edema. Review of Systems Review of Systems: Shortness of breath, productive cough, wheezing. [facility], LAT[facility] Past Medical History Medical History Chronic anticoagulation Paroxysmal atrial fibrillation Obstructive sleep apnea Noncompliant with CPAP. Transient ischemic attack Gastroesophageal reflux disease Familial spastic paraplegia Glaucoma History of pulmonary embolism Multiple sclerosis Suprapubic catheter in place. 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 History of suprapubic catheter History of hysterectomy Family History Family History Father Spastic paralysis Mother Breast cancer Social History Social History Social History: Surrogate medical decision maker: Ange Reyes or Nancy John, hank. Code status: Full code. Smoking status: Never smoker Second hand tobacco smoke exposure: No Alcohol intake: never Substance use: never Substance use type: does not use Do You Feel Safe in your Home?: Yes Lack of Transportation: No Lack of Food: Never True Current Housing: I Have Housing Concerned About Future Housing: No Difficulty Paying Gas/Electric Bills: No Difficulty Paying for Meds: No Currently Unemployed: No Education: Don't Know Difficulty w/ Childcare or Family Care: No Living arrangements: [facility] Additional living arrangements comments: [facility]. Has 3 daughters. Additional occupation/education comments: [employer]. Spiritual care concerns: No Meds Home Medications and Allergies Home Medications ?Medication ?Instructions ?Recorded ?Confirmed ?Type apixaban 5 mg tablet (Eliquis) 5 mg PO BID 03/11/22 05/19/24 History cranberry extract 425 mg capsule 425 mg PO DAILY 03/11/22 05/19/24 History dorzolamide 2 % eye drops 2 drp EACH EYE TID 03/11/22 05/19/24 History flecainide 50 mg tablet 50 mg PO BID 03/11/22 05/19/24 History levothyroxine 75 mcg tablet 75 mcg PO DAILY 03/11/22 05/19/24 History nitroglycerin 0.4 mg sublingual 0.4 mg sublingual PRN PRN Chest 03/11/22 05/19/24 History tablet Pain rosuvastatin 10 mg tablet 10 mg PO HS 03/11/22 05/19/24 History arginine-vitamin C-vitamin E oral 1 g PO BID 10/28/22 05/19/24 History 4.5 gram-156 mg/9.2 gram powder pkt (Arginaid) escitalopram oxalate 10 mg tablet 10 mg PO QHS 10/28/22 05/19/24 History furosemide 40 mg tablet 40 mg PO DAILY #30 tabs 11/01/22 05/19/24 Rx acetaminophen 500 mg capsule 1,000 mg PO Q6H PRN pain 11/03/22 05/19/24 History bromfenac 0.09 % eye drops 1 drp RIGHT EYE HS 11/03/22 05/19/24 History melatonin 5 mg tablet 5 mg PO HS #30 tabs 11/06/22 05/19/24 Rx levothyroxine 75 mcg tablet 150 mcg (2 x 75 mcg) PO .qsunday 12/19/22 05/19/24 Rx #7 tabs Antacid (calcium carbonate) 500 mg PO TID PRN Indigestion 05/11/23 05/20/24 History Saccharomyces boulardii 250 mg 250 mg PO BID 05/11/23 05/19/24 History capsule (Florastor) acetic acid 0.25 % irrigation 30 ml irrigation EVERY OTHER DAY 05/11/23 05/20/24 History solution hyoscyamine sulfate 0.125 mg tablet 0.125 mg PO BID PRN cramping 05/11/23 05/19/24 History nystatin 100,000 unit/gram topical 1 applic topical BID 05/11/23 05/19/24 History cream ciclopirox 0.77 % topical gel 1 applic topical HS 11/13/23 05/19/24 History pantoprazole 40 mg tablet,delayed 40 mg PO DAILY 11/13/23 05/19/24 History release albuterol sulfate 90 mcg/actuation 2 puff inhalation PRN asthma 05/19/24 05/19/24 History aerosol inhaler ferrous sulfate 325 mg (65 mg 325 mg PO BID 05/19/24 05/19/24 History iron) tablet (Kassie-Time) insulin glargine 100 unit/mL (3 22 unit subcut QPM 05/19/24 05/19/24 History mL) subcutaneous pen (Lantus Solostar U-100 Insulin) insulin glargine 100 unit/mL 25 unit subcut DAILY 05/19/24 05/20/24 History subcutaneous solution (Lantus U-100 Insulin) insulin lispro 10 unit subcut TID 05/19/24 05/20/24 History insulin lispro 100 unit/mL 1 sliding scale dose subcut TID 05/19/24 05/20/24 History subcutaneous pen (Humalog KwikPen (U-100) Insulin) nystatin 100,000 unit/mL oral 5 ml PO QID 05/19/24 05/19/24 History suspension triamcinolone acetonide 0.1 % 1 applic topical BID PRN rash 05/19/24 05/20/24 History topical cream ketoconazole 2 % topical cream 1 applic topical BID 05/20/24 05/20/24 History levothyroxine 150 mcg tablet 150 mcg PO .friday05/20/24 05/20/24 History loratadine 10 mg tablet 10 mg PO QHS #20 tabs 05/28/24 Rx Allergies Allergy/AdvReac Type Severity Reaction Status Date / Time black pepper Allergy Unknown Verified 11/18/23 11:20 diltiazem Allergy Unknown Verified 11/18/23 11:20 donepezil Allergy Unknown Verified 11/18/23 11:20 fluticasone Allergy Unknown Verified 11/18/23 11:20 metformin Allergy Unknown Verified 11/18/23 11:20 Vital Signs Vital Signs - 24 hr 06/02/24 20:34 06/02/24 20:40 06/02/24 20:40 Temperature 97.9 F Pulse Rate 79 79 Respiratory Rate 21 H Blood Pressure 139/56 L Pulse Oximetry 95 96 Oxygen Delivery Nasal Cannula Nasal Cannula Oxygen Flow Rate 2 2 06/02/24 22:32 06/02/24 22:45 06/03/24 00:34 Temperature Pulse Rate 78 77 88 Respiratory Rate 20 19 18 Blood Pressure 133/87 136/75 Pulse Oximetry 96 94 Oxygen Delivery Oxygen Flow Rate Exam Narrative: Patient is laying in a stretcher Const: General: comfortable, no acute distress, well developed, alert, awake, ill appearing chronically and average body habitus Nutritional Appearance: average body habitus Orientation/consciousness: patient oriented x3 Other: Nasal cannula on HENMT: Head: normal to inspection, normocephalic and atraumatic Ears: hearing grossly normal bilaterally Face/Nose/Sinus: normal facial exam Face and sinus: normal facial exam Eyes: General: appearance normal, both eyes and all related structures Pupils: Equal, round and reactive pupils present EOM: EOMs intact bilaterally Neck: Neck: full ROM, no lymphadenopathy and no JVD Thyroid: thyroid normal Lymphatic: no lymphadenopathy noted Resp: Effort & Inspection: normal respiratory effort and able to speak in complete sentences Auscultation: crackles, rales and wheezes Cardio: Jugular venous distension: no JVD Rate: regular rate Rhythm: regular rhythm Heart sounds: S1 normal heart sound present and S2 normal heart sound present GI: Inspection: other (Ileostomy in place) GI Palp: Yes Soft to palpation and Yes No hepatosplenomegaly present : General: Yes deferred Skin: Rashes: no rashes Wounds: no wounds Neuro: General: patient oriented x3 and CN's II-XI intact bilaterally Cranial nerves: Yes CN's II-XII intact bilaterally and Yes Equal, round and reactive pupils present Cognition (Neuro): normal cognition Speech: normal speech Gait exam (Neuro): Unable to assess gait Other: Patient is functional quadriplegic Extrem: General: edema bilateral (1+) Other: Unna boots in place H&P: Results Labs Labs: Short CBC 06/02/24 Range/Units 20:54 WBC 12.7 H (4.5-10.0) K/mm3 Hgb 12.7 (12.0-15.0) g/dL Hct 39.8 (37.0-47.0) % Plt Count 213 (150-375) k/mm3 BMP 06/02/24 21:32 Sodium 135 L Potassium 3.7 Chloride 104 Carbon Dioxide 26 BUN 15 D Creatinine 0.59 L Glucose 208 H Calcium 9.8 Cardiac Enzymes 06/02/24 06/02/24 Range/Units 21:32 23:41 Troponin I < 0.012 < 0.012 (0.000-0.034) ng/mL Liver Function 06/02/24 Range/Units 21:32 Total Bilirubin 0.4 (0.2-1.3) mg/dL AST 17 (14-36) U/L ALT 16 (6-35) U/L Alkaline Phosphatase 125 (38-126) U/L Albumin 3.2 L (3.5-5.1) g/dL Urine 06/02/24 Range/Units 23:41 Urine Color Yellow (Yellow) Urine Appearance Cloudy H (Clear) Urine pH 5.0 (5.0-9.0) Ur Specific [place] 1.010 (1.001-1.035) Urine Protein 1+ H (Negative) mg/dL Urine Glucose (UA) Negative (Negative) mg/dL Assessment and Plan Assessment and plan (1) Nosocomial pneumonia: Code(s): J18.9 - Pneumonia, unspecified organism; Y95 - Nosocomial condition Status: Acute Assessment and Plan: Admit to med tele Presumable Cultures in progress Started nosocomial pneumonia antibiotic by antibiotic stewardship Supportive care (2) Hypoxic respiratory failure: Code(s): J96.91 - Respiratory failure, unspecified with hypoxia Status: Acute Assessment and Plan: Patient on 2 L of oxygen by nasal cannula (3) Congestive heart failure: Code(s): I50.9 - Heart failure, unspecified Status: Acute Assessment and Plan: Monitor daily intake and output Diurese as needed (4) Paroxysmal atrial fibrillation: Code(s): I48.0 - Paroxysmal atrial fibrillation Status: Acute Assessment and Plan: Rate controlled and anticoagulated (5) GERD (gastroesophageal reflux disease): Code(s): K21.9 - Gastro-esophageal reflux disease without esophagitis Status: Acute Assessment and Plan: PPI (6) Ileostomy in place: Code(s): Z93.2 - Ileostomy status Status: Acute Assessment and Plan: Ileostomy care (7) Chronic indwelling Schmitt catheter: Code(s): Z97.8 - Presence of other specified devices Status: Acute Assessment and Plan: Catheter care (8) CATY (obstructive sleep apnea): Code(s): G47.33 - Obstructive sleep apnea (adult) (pediatric) Status: Acute Assessment and Plan: CPAP at nighttime (9) Type 2 diabetes mellitus: Qualifiers: Diabetes mellitus shelter insulin use: with exterminator termite use Diabetes mellitus complication status: without complication Qualified Code(s): E11.9 - Type 2 diabetes mellitus without complications; 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 Advance Care Plan I have confirmed that the patient's Advanced Care Plan is present, code status is documented, or surrogate decision maker is listed in patient medical record.: Yes Medication Reconciliation I have utilized all available resources to obtain, update and review the patients current medications (includes all prescriptions, OTC, herbals, cannabis, and nutritional supplements).: Yes
--- NOTE | 2024-06-03 01:21 | PC.NURSE ---
Pt has been poked 5 times for blood vultures due to difficult draw. RN was able to get 1 full set of blood cultures and one green top of second set. Lab verbalizes this is okay and to send down what we got.
--- NOTE | 2024-06-03 02:24 | ADMGEN ---
This patient, Perla Leon, was admitted to [facility] Surg Room 315-02. Patient/family oriented to hospital policies and general routines including ID bracelet, bed and alarms, visiting hours, pain management, procedures, bathroom and other care routines, personal items, smoking policy, room service/diet, and visiting hours. Information on how to activate the Rapid Response Team has been discussed. Patient/Family are encouraged to report perceived risks to care and to ask questions if they do not understand what they are told or what they should do.
[2024-06-03] MEDS: VANCOMYCIN 2,000 MG/NS 500 ML 2,000 MG/500 ML BAG 250 MG IVPB (02:35)
[2024-06-03] MEDS: AZITHROMYCIN 500 MG/NS 250 ML 500 MG/250 ML BAG 250 MG IVPB (02:35)
[2024-06-03 02:42] LABS: MRSA (PCR) NOT DETECTED (NOT DETECTE)
[2024-06-03 07:03] LABS: Troponin I < 0.012 ng/mL (0.000-0.034)
[2024-06-03 07:55] LABS: Glucose Point of Care 330 mg/dl (65-105)
--- NOTE | 2024-06-03 07:56 | PCWOUND ---
WOCN NOTE Received consult for patient stating she has a wound. regional controller RN stated skin was within normal limits with no pressure wounds present. Spoke with DES Omalley for patient today, states just did her head to toe assessment and patient has no wounds present. There is an old scar noted to buttocks, but nothing open. Will disregard consult at this time.
[2024-06-03] MEDS: IPRATROPIUM 0.5 MG/ALBUTEROL SULFATE 2.5 MG AMPUL.NEB 3 ML INHALATION ×3 (08:03→21:46)
[2024-06-03] MEDS: INSULIN ASPART (*BKC) 100 UNITS/ML 10 UNITS SUB-Q ×3 (08:09→16:34)
[2024-06-03] MEDS: SACCHAROMYCES BOULARDII 250 MG CAPSULE PO ×2 (08:12→16:08)
[2024-06-03] MEDS: APIXABAN 5 MG TABLET PO ×2 (08:12→22:21)
[2024-06-03] MEDS: FLECAINIDE ACETATE 50 MG TABLET PO ×2 (08:12→22:21)
[2024-06-03] MEDS: PANTOPRAZOLE 40 MG TABLET PO (08:12)
[2024-06-03] MEDS: FUROSEMIDE INJ 40 MG/4 ML VIAL IV PUSH ×2 (08:12→22:20)
[2024-06-03] MEDS: MICONAZOLE NITRATE 2% CREAM 30 GM TUBE 1 APPLIC TOPICAL ×2 (08:12→16:09)
[2024-06-03] MEDS: SILVER SULFADIAZINE 1% CR 400 GM JAR (*BKC) 1 APPLIC TOPICAL (08:13)
--- NOTE | 2024-06-03 11:13 | P.PNIM_ITS ---
Progress Note: A&P Assessment and Plan (1) Nosocomial pneumonia: Code(s): J18.9 - Pneumonia, unspecified organism; Y95 - Nosocomial condition Status: Acute Assessment and Plan: Admit to med tele Presumable Cultures in progress Started nosocomial pneumonia antibiotic by antibiotic stewardship Supportive care -pt was just here with the same symptoms- will switch antibiotics to Cefepime 2gm q12h MRSA neg- so will stop vanc (2) Hypoxic respiratory failure: Code(s): J96.91 - Respiratory failure, unspecified with hypoxia Status: Acute Assessment and Plan: Patient on 2 L of oxygen by nasal cannula continue to monitor resp status (3) Congestive heart failure: Code(s): I50.9 - Heart failure, unspecified Status: Acute Assessment and Plan: Monitor daily intake and output Diures as needed (4) Paroxysmal atrial fibrillation: Code(s): I48.0 - Paroxysmal atrial fibrillation Status: Acute Assessment and Plan: Rate controlled and anticoagulated (5) GERD (gastroesophageal reflux disease): Code(s): K21.9 - Gastro-esophageal reflux disease without esophagitis Status: Acute Assessment and Plan: PPI (6) Ileostomy in place: Code(s): Z93.2 - Ileostomy status Status: Acute Assessment and Plan: Ileostomy care (7) Chronic indwelling Schmitt catheter: Code(s): Z97.8 - Presence of other specified devices Status: Acute Assessment and Plan: Catheter care (8) CATY (obstructive sleep apnea): Code(s): G47.33 - Obstructive sleep apnea (adult) (pediatric) Status: Acute Assessment and Plan: CPAP at nighttime (9) Type 2 diabetes mellitus: Qualifiers: Diabetes mellitus complication status: without complication Diabetes mellitus terminal operator insulin use: with long-term use Qualified Code(s): E11.9 - Type 2 diabetes mellitus without complications; 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 Code(s): E11.9 - Type 2 diabetes mellitus without complications Status: Acute Assessment and Plan: Resume home meds Time Spent With Patient Time with patient: 25 - 35 minutes Subjective Date/time seen: 06/03/24 11:13 Interval history: 83-year-old female with past medical history significant for hypoxic res piratory failure on home O2 2 L by nasal cannula, after recent admission and discharge from [facility], paroxysmal atrial fibrillation, functional quadriplegic, Phyllis lift, ileostomy in place, rate controlled anticoagulated, insulin-dependent diabetes mellitus, hypothyroidism, patient resides at [facility] was brought to the ED for evaluation due to productive cough, shortness of breath, wheezing. Patient has been admitted for further evaluation management and treatment. Chest Xray: 1: Cardiomegaly with mild interstitial edema. /- pt is seen and examined. She is up in the chair- cough, feels very congestion. Eating and drinking ok. Review of Systems Review of Systems: Shortness of breath, productive cough, wheezing. Exam Narrative: Patient is laying in a stretcher Const: General: comfortable, no acute distress, well developed, alert, awake, ill appearing chronically and average body habitus Nutritional Appearance: average body habitus Orientation/consciousness: patient oriented x3 Other: Nasal cannula on HENMT: Head: normal to inspection, normocephalic and atraumatic Ears: hearing grossly normal bilaterally Face/Nose/Sinus: normal facial exam Face and sinus: normal facial exam Eyes: General: appearance normal, both eyes and all related structures Pupils: Equal, round and reactive pupils present EOM: EOMs intact bilaterally Neck: Neck: full ROM, no lymphadenopathy and no JVD Thyroid: thyroid normal Lymphatic: no lymphadenopathy noted Resp: Effort & Inspection: normal respiratory effort and able to speak in complete sentences Auscultation: clear to auscultation bilaterally, crackles, rales and wheezes Cardio: Jugular venous distension: no JVD Rate: regular rate Rhythm: regular rhythm Heart sounds: S1 normal heart sound present and S2 normal heart sound present GI: Inspection: other (Ileostomy in place) : General: Yes deferred Skin: Rashes: no rashes Wounds: no wounds Neuro: General: patient oriented x3, CN's II-XI intact bilaterally and Unable to assess gait Cranial nerves: Yes CN's II-XII intact bilaterally and Yes Equal, round and reactive pupils present Cognition (Neuro): normal cognition Speech: normal speech Gait exam (Neuro): Normal gait present and Unable to assess gait Motor exam (neuro): 5/5 motor strength present throughout Other: Patient is functional quadriplegic Extrem: General: normal to inspection, full ROM, no joint enlargement, no pedal edema and edema bilateral (1+) Other: Unna boots in place Objective Data Vital Signs Vital Signs: Vital Signs - 24 hr 01/15/25 20:34 06/02/24 20:40 06/02/24 20:40 Temperature 97.9 F Pulse Rate 79 79 Respiratory Rate 21 H Blood Pressure 139/56 L Pulse Oximetry 95 96 Oxygen Delivery Nasal Cannula Nasal Cannula Oxygen Flow Rate 2 2 06/02/24 22:32 06/02/24 22:45 06/02/24 23:55 Temperature Pulse Rate 78 77 86 Respiratory Rate 20 19 19 Blood Pressure 133/87 Pulse Oximetry 96 Oxygen Delivery Oxygen Flow Rate 06/03/24 00:34 06/03/24 02:04 06/03/24 02:36 Temperature 98.0 F Pulse Rate 88 86 88 Respiratory Rate 18 18 20 Blood Pressure 136/75 126/47 L 132/62 Pulse Oximetry 94 96 93 Oxygen Delivery Oxygen Flow Rate 06/03/24 03:38 06/03/24 04:00 06/03/24 05:47 Temperature 97.4 F L Pulse Rate 88 84 87 Respiratory Rate 20 20 Blood Pressure 126/51 L Pulse Oximetry 93 98 Oxygen Delivery Nasal Cannula Oxygen Flow Rate 2 06/03/24 08:00 06/03/24 08:02 06/03/24 08:05 Temperature Pulse Rate 82 80 Respiratory Rate 16 Blood Pressure Pulse Oximetry 98 Oxygen Delivery Nasal Cannula Oxygen Flow Rate 1 06/03/24 08:08 06/03/24 08:12 06/03/24 08:14 Temperature Pulse Rate 80 82 Respiratory Rate 16 Blood Pressure Pulse Oximetry 98 Oxygen Delivery Nasal Cannula Oxygen Flow Rate 1 Intake/Output Intake/Output: Intake & Output 05/31/24 06/01/24 06/02/24 06/03/24 23:59 23:59 23:59 23:59 Intake Total 150 Output Total 1350 Balance -1200 Meds/Results Medications: Active Medications Generic Name Dose Route Start Last Admin Trade Name Freq PRN Reason Stop Dose Admin Acetaminophen 1,000 mg 06/03/24 04:56 Acetaminophen 500 Mg Tablet PO Q6H PRN pain 1-3 Albuterol/Ipratropium 3 ml 06/03/24 06:00 06/03/24 08:03 Ipratropium 0.5 Mg/Albuterol Sulfate 2.5 Mg Ampul.Neb 3 Ml INHALATION 3 ml Q6HRT KATHARINE Administration Apixaban 5 mg 06/03/24 09:00 06/03/24 08:12 Apixaban 5 Mg Tablet PO 5 mg Q12HR [facility] Administration Calcium Carbonate 500 mg 06/03/24 05:41 Calcium Carbonate (Tums) 500 Mg (200 Mg Elemental) BY MOUTH TID PRN Indigestion Escitalopram Oxalate 10 mg 06/03/24 21:00 Escitalopram Oxalate 10 Mg Tablet PO QHS [facility] Ferrous Sulfate 325 mg 06/03/24 12:00 Ferrous Sulfate [address] BY MOUTH 1200,1700 [facility] Flecainide Acetate 50 mg 06/03/24 09:00 06/03/24 08:12 Flecainide Acetate 50 Mg Tablet PO 50 mg Q12HR [facility] Administration Furosemide 40 mg 06/03/24 09:00 06/03/24 08:12 Furosemide Inj 40 Mg/4 Ml Vial IV PUSH 40 mg Q12HR [facility] Administration Hyoscyamine 0.125 mg 06/03/24 04:56 Hyoscyamine Sulfate 0.125 Mg Tablet PO BID PRN cramping Ceftriaxone Sodium 1 gm in 50 mls @ 100 mls/hr 06/04/24 02:00 Rocephin 1 Gm/Ns 50 Ml IVPB Q24H [facility] Azithromycin 500 mg in 250 mls @ 250 mls/hr 06/04/24 02:00 Zithromax IVPB Q24H [facility] Vancomycin HCl 1,500 mg in 500 mls @ 250 mls/hr 06/03/24 21:00 Vancomycin 1,500 Mg/Ns 500 Ml IVPB Q18H [facility] Insulin Aspart 10 units 06/03/24 09:00 06/03/24 08:09 Insulin Aspart (*Bkc) 100 Units/Ml SUB-Q 10 units TID [facility] Administration Insulin Glargine 22 units 06/03/24 18:00 Insulin Glargine (*Bkc) 100 Units/Ml SUB-Q QPM [facility] Levothyroxine Sodium 150 mcg 06/06/24 06:30 Levothyroxine Sodium 150 Mcg Tablet PO Ramirez@0630 [facility] Levothyroxine Sodium 75 mcg 06/04/24 06:30 Levothyroxine Sodium 75 Mcg Tablet PO MoTuWeThFrSa@0630 [facility] Miconazole Nitrate 1 applic 06/03/24 09:00 06/03/24 08:12 Miconazole Nitrate 2% Cream 30 Gm Tube TOPICAL 1 applic BID [facility] Administration Nitroglycerin 0.4 mg 06/03/24 04:56 Nitroglycerin Sl 0.4 Mg Tablet SUBLINGUAL PRN PRN Chest Pain Non-Formulary Medication 1 each 06/03/24 05:46 Nonformulary Nutritional Supplement XX 06/04/24 05:45 PRN PRN PROTOCOL Pantoprazole Sodium 40 mg 06/03/24 09:00 06/03/24 08:12 Pantoprazole 40 Mg Tablet PO 40 mg DAILY [facility] Administration Rosuvastatin Calcium 10 mg 06/03/24 21:00 Rosuvastatin 10 Mg Tablet PO HS [facility] Saccharomyces Boulardii 250 mg 06/03/24 09:00 06/03/24 08:12 Saccharomyces Boulardii 250 Mg Capsule PO 250 mg BID [facility] Administration Silver Sulfadiazine 1 applic 06/03/24 09:00 06/03/24 08:13 Silver Sulfadiazine 1% Cr 400 Gm Jar (*Bkc) TOPICAL 1 applic DAILY [facility] Administration Triamcinolone Acetonide 1 applic 06/03/24 04:56 Triamcinolone Acet 0.1% Cream 15 Gm Tube TOPICAL BID PRN rash Radiology Results: ITS Impressions Chest X-Ray 06/02/24 21:16 Impression: 1: Cardiomegaly with mild interstitial edema. Labs Labs: Laboratory Results - last 24 hr 06/02/24 06/02/24 06/02/24 20:54 21:32 23:41 WBC 12.7 H RBC 4.69 Hgb 12.7 Hct 39.8 MCV 84.9 MCH 27.1 MCHC 31.9 L RDW 13.3 Plt Count 213 MPV 11.2 H Immature Gran % (Auto) 0.9 H Neut % (Auto) 64.0 Lymph % (Auto) 15.5 L [place] % (Auto) 17.8 H Eos % (Auto) 1.3 Baso % (Auto) 0.5 Lymph # (Auto) 1.96 [place] # (Auto) 2.3 H Eos # (Auto) 0.2 Baso # (Auto) 0.1 Abs Immat Gran (auto) 0.12 H Absolute Neuts (auto) 8.1 H Absolute Nucleated RBC 0.000 Nucleated RBC % 0.0 PT 16.5 H INR 1.3 APTT 32.3 Sodium 135 L Potassium 3.7 Chloride 104 Carbon Dioxide 26 Anion Gap 5 BUN 15 D Creatinine 0.59 L Estim Creat Clear Calc Not Reportable Estimated GFR > 60 Glucose 208 H POC Capillary Glucose Calcium 9.8 Total Bilirubin 0.4 AST 17 ALT 16 Alkaline Phosphatase 125 Troponin I < 0.012 < 0.012 NT-Pro-B Natriuret Pep Cancelled 503 H Total Protein 7.0 Albumin 3.2 L Lipase 153 Urine Color Yellow Urine Appearance Cloudy H Urine pH 5.0 Ur Specific [place] 1.010 Urine Protein 1+ H Urine Glucose (UA) Negative Urine Ketones Negative Ur Blood (Man) 3+ H Urine Nitrate Negative Urine Bilirubin Negative Urine Urobilinogen 0.2 Leukocyte Esterase Rfl Trace H Urine RBC 21-50 H Urine WBC 6-10 H Ur Squamous Epith Cells None seen Urine Bacteria None seen Urine Casts 3-5 Nasal MRSA (PCR) Influenza A (RT-PCR) Negative Influenza B (RT-PCR) Negative RSV (RT-PCR) Negative SARS-CoV-2 RNA (RT-PCR) Negative 06/03/24 06/03/24 06/03/24 01:27 06:08 07:49 WBC RBC Hgb Hct MCV MCH MCHC RDW Plt Count MPV Immature Gran % (Auto) Neut % (Auto) Lymph % (Auto) [place] % (Auto) Eos % (Auto) Baso % (Auto) Lymph # (Auto) [place] # (Auto) Eos # (Auto) Baso # (Auto) Abs Immat Gran (auto) Absolute Neuts (auto) Absolute Nucleated RBC Nucleated RBC % PT INR APTT Sodium Potassium Chloride Carbon Dioxide Anion Gap BUN Creatinine Estim Creat Clear Calc Estimated GFR Glucose POC Capillary Glucose 330 H Calcium Total Bilirubin AST ALT Alkaline Phosphatase Troponin I < 0.012 NT-Pro-B Natriuret Pep Total Protein Albumin Lipase Urine Color Urine Appearance Urine pH Ur Specific [place] Urine Protein Urine Glucose (UA) Urine Ketones Ur Blood (Man) Urine Nitrate Urine Bilirubin Urine Urobilinogen Leukocyte Esterase Rfl Urine RBC Urine WBC Ur Squamous Epith Cells Urine Bacteria Urine Casts Nasal MRSA (PCR) Not detected Influenza A (RT-PCR) Influenza B (RT-PCR) RSV (RT-PCR) SARS-CoV-2 RNA (RT-PCR) Quality VTE Prophylaxis VTE prophylaxis: pharmacologic ordered
[2024-06-03] MEDS: FERROUS SULFATE 325 MG TABLET DR BY MOUTH ×2 (11:33→16:12)
[2024-06-03 12:09] LABS: Glucose Point of Care 340 mg/dl (65-105)
[2024-06-03] MEDS: CEFEPIME 2 GM/NS 50 ML 2 GM/50 ML BAG IVPB (15:33)
--- NOTE | 2024-06-03 15:50 | PCRCNOTE ---
PT. NON COMPLIANT WITH CPAP, DOES NOT WISH TO WEAR CPAP.
[2024-06-03 16:30] LABS: Glucose Point of Care 316 mg/dl (65-105)
[2024-06-03] MEDS: INSULIN GLARGINE (*BKC) 100 UNITS/ML 22 UNITS SUB-Q (17:09)
[2024-06-03 20:26] LABS: Glucose Point of Care 238 mg/dl (65-105)
[2024-06-03] MEDS: AZITHROMYCIN 250 MG TABLET 500 MG PO (22:21)
[2024-06-03] MEDS: ROSUVASTATIN 10 MG TABLET PO (22:21)
[2024-06-03] MEDS: ESCITALOPRAM OXALATE 10 MG TABLET PO (22:22)
[2024-06-03] MEDS: guaiFENesin 12 HR 600 MG TABCR PO (22:22)
[2024-06-04] VITALS (19 sets, daily range): BP systolic 120–160; BP diastolic 47–73; PULSE 65–76; RESP 18–20; TEMP 35.9–36.8; O2SAT 94–100
[2024-06-04] MEDS: IPRATROPIUM 0.5 MG/ALBUTEROL SULFATE 2.5 MG AMPUL.NEB 3 ML INHALATION ×4 (02:15→20:47)
[2024-06-04] MEDS: CEFEPIME 2 GM/NS 50 ML 2 GM/50 ML BAG IVPB ×2 (03:43→14:24)
[2024-06-04] MEDS: LEVOTHYROXINE SODIUM 75 MCG TABLET PO (05:20)
[2024-06-04] MEDS: SACCHAROMYCES BOULARDII 250 MG CAPSULE PO ×2 (08:49→16:40)
[2024-06-04] MEDS: APIXABAN 5 MG TABLET PO ×2 (08:49→21:20)
[2024-06-04] MEDS: FLECAINIDE ACETATE 50 MG TABLET PO ×2 (08:49→21:19)
[2024-06-04] MEDS: PANTOPRAZOLE 40 MG TABLET PO (08:49)
[2024-06-04] MEDS: guaiFENesin 12 HR 600 MG TABCR PO ×2 (08:49→21:20)
[2024-06-04] MEDS: FUROSEMIDE INJ 40 MG/4 ML VIAL IV PUSH ×2 (08:49→21:19)
[2024-06-04] MEDS: MICONAZOLE NITRATE 2% CREAM 30 GM TUBE 1 APPLIC TOPICAL ×2 (08:53→16:41)
[2024-06-04] MEDS: SILVER SULFADIAZINE 1% CR 400 GM JAR (*BKC) 1 APPLIC TOPICAL (08:53)
[2024-06-04] MEDS: INSULIN ASPART (*BKC) 100 UNITS/ML 10 UNITS SUB-Q ×3 (08:55→16:40)
[2024-06-04 09:13] LABS: Glucose Point of Care 201 mg/dl (65-105)
--- NOTE | 2024-06-04 11:05 | PC.NURSE ---
Spoke with Ange, daughter, regarding flushing the suprapubic catheter. Daughter stated they use Acetic Acid 0.25% solution every shift to flush catheter.
[2024-06-04] MEDS: FERROUS SULFATE 325 MG TABLET DR BY MOUTH ×2 (11:53→16:40)
[2024-06-04 12:15] LABS: Glucose Point of Care 268 mg/dl (65-105)
[2024-06-04] MEDS: ACETIC ACID 0.25% IRRIG SOLN 500 ML 10 ML IRRIGATION (14:24)
--- NOTE | 2024-06-04 15:34 | P.PNIM_ITS ---
Progress Note: A&P Assessment and Plan (1) Nosocomial pneumonia: Code(s): J18.9 - Pneumonia, unspecified organism; Y95 - Nosocomial condition Status: Acute Assessment and Plan: Admit to med tele Presumable Cultures in progress Started nosocomial pneumonia antibiotic by antibiotic stewardship Supportive care -pt was just here with the same symptoms- will switch antibiotics to Cefepime 2gm q12h continue azithromycin 500 mg daily MRSA neg- so will stop vanc (2) Hypoxic respiratory failure: Code(s): J96.91 - Respiratory failure, unspecified with hypoxia Status: Acute Assessment and Plan: Patient on 2 L of oxygen by nasal cannula continue to monitor resp status try to wean off oxygen if able (3) Congestive heart failure: Code(s): I50.9 - Heart failure, unspecified Status: Acute Assessment and Plan: Monitor daily intake and output Diurese as needed i/o reviewed (4) Paroxysmal atrial fibrillation: Code(s): I48.0 - Paroxysmal atrial fibrillation Status: Acute Assessment and Plan: Rate controlled and anticoagulated (5) GERD (gastroesophageal reflux disease): Code(s): K21.9 - Gastro-esophageal reflux disease without esophagitis Status: Acute Assessment and Plan: PPI (6) Ileostomy in place: Code(s): Z93.2 - Ileostomy status Status: Acute Assessment and Plan: Ileostomy care (7) Chronic indwelling Schmitt catheter: Code(s): Z97.8 - Presence of other specified devices Status: Acute Assessment and Plan: Catheter care (8) CATY (obstructive sleep apnea): Code(s): G47.33 - Obstructive sleep apnea (adult) (pediatric) Status: Acute Assessment and Plan: CPAP at nighttime (9) Type 2 diabetes mellitus: Qualifiers: Diabetes mellitus half-way insulin use: with half-way use Diabetes mellitus complication status: without complication Qualified Code(s): E11.9 - Type 2 diabetes mellitus without complications; Z79.4 - snf (current) use of insulin Code(s): E11.9 - Type 2 diabetes mellitus without complications Status: Acute Assessment and Plan: Resume home meds lantus 22 units hs, aspart 10 units tid with meals hypoglycemia protocol AccuCheck ac/hs BS reviewed- stable Time Spent With Patient Time with patient: 25 - 35 minutes Subjective Date/time seen: 06/04/24 15:34 Interval history: 83-year-old female with past medical history significant for hypoxic respiratory failure on home O2 2 L by nasal cannula, after recent admission and discharge from [facility], paroxysmal atrial fibrillation, functional quadriplegic, Phyllis lift, ileostomy in place, rate controlled anticoagulated, insulin-dependent diabetes mellitus, hypothyroidism, patient resides at [facility] was brought to the ED for evaluation due to productive cough, shortness of breath, wheezing. Patient has been admitted for further evaluation management and treatment. Chest Xray: Cardiomegaly with mild interstitial edema. 05/24 - pt is seen and examined. She is up in the chair- cough, feels very congestion. Eating and drinking ok. 06/04 - pt is seen today- she is up in the chair. She gets a little more sob and starts to cough when she is being assessed. She denies any other acute problems: no n/v/d, no chest pain. She is still on oxygen. Cough medicine was ordered, duoneb available. Review of Systems Review of Systems: Shortness of breath, productive cough, wheezing. Exam Narrative: Patient is laying in a stretcher Const: General: comfortable, no acute distress, well developed, alert, awake, ill appearing chronically and average body habitus Nutritional Appearance: average body habitus Orientation/consciousness: patient oriented x3 Other: Nasal cannula on HENMT: Head: normal to inspection, normocephalic and atraumatic Ears: hearing grossly normal bilaterally Face/Nose/Sinus: normal facial exam Face and sinus: normal facial exam Eyes: General: appearance normal, both eyes and all related structures Pupils: Equal, round and reactive pupils present EOM: EOMs intact bilaterally Neck: Neck: full ROM, no lymphadenopathy and no JVD Thyroid: thyroid normal Lymphatic: no lymphadenopathy noted Resp: Effort & Inspection: normal respiratory effort and able to speak in complete sentences Auscultation: clear to auscultation bilaterally, crackles, rales and wheezes Cardio: Jugular venous distension: no JVD Rate: regular rate Rhythm: regular rhythm Heart sounds: S1 normal heart sound present and S2 normal heart sound present GI: Inspection: other (Ileostomy in place) : General: Yes deferred Skin: Rashes: no rashes Wounds: no wounds Neuro: General: patient oriented x3, CN's II-XI intact bilaterally and Unable to assess gait Cranial nerves: Yes CN's II-XII intact bilaterally and Yes Equal, round and reactive pupils present Cognition (Neuro): normal cognition Speech: normal speech Gait exam (Neuro): Normal gait present and Unable to assess gait Motor exam (neuro): 5/5 motor strength present throughout Other: Patient is functional quadriplegic Extrem: General: normal to inspection, full ROM, no joint enlargement, no pedal edema and edema bilateral (1+) Other: Unna boots in place Objective Data Vital Signs Vital Signs: Vital Signs - 24 hr 06/03/24 16:00 06/03/24 20:00 06/03/24 21:41 Temperature 97.0 F L Pulse Rate 83 77 75 Respiratory Rate 16 Blood Pressure 150/61 H Pulse Oximetry 96 Oxygen Delivery Oxygen Flow Rate 06/03/24 21:46 06/03/24 21:51 06/03/24 21:57 Temperature Pulse Rate 70 73 Respiratory Rate 16 16 Blood Pressure Pulse Oximetry 96 Oxygen Delivery Nasal Cannula Oxygen Flow Rate 1 06/03/24 22:14 06/03/24 22:21 06/04/24 00:00 Temperature Pulse Rate 73 67 Respiratory Rate Blood Pressure Pulse Oximetry 96 Oxygen Delivery Nasal Cannula Oxygen Flow Rate 1 06/04/24 02:15 06/04/24 02:24 06/04/24 04:00 Temperature Pulse Rate 67 69 69 Respiratory Rate 18 18 Blood Pressure Pulse Oximetry Oxygen Delivery Oxygen Flow Rate 06/04/24 05:06 06/04/24 07:50 06/04/24 07:54 Temperature 97.9 F Pulse Rate 71 Respiratory Rate 20 Blood Pressure 122/47 L Pulse Oximetry 98 98 94 Oxygen Delivery Nasal Cannula Nasal Cannula Oxygen Flow Rate 1 1 06/04/24 07:54 06/04/24 08:00 06/04/24 08:08 Temperature Pulse Rate 65 66 72 Respiratory Rate 18 18 Blood Pressure Pulse Oximetry Oxygen Delivery Oxygen Flow Rate 06/04/24 12:00 06/04/24 14:00 06/04/24 15:00 Temperature 98.3 F Pulse Rate 74 71 72 Respiratory Rate 20 18 Blood Pressure 120/73 Pulse Oximetry 97 Oxygen Delivery Oxygen Flow Rate 06/04/24 15:15 Temperature Pulse Rate 76 Respiratory Rate 18 Blood Pressure Pulse Oximetry Oxygen Delivery Oxygen Flow Rate Intake/Output Intake/Output: Intake & Output 06/01/24 06/02/24 06/03/2417/25 23:59 23:59 23:59 23:59 Intake Total 1420 970 Output Total 3400 1900 Balance -1980 -930 Meds/Results Medications: Active Medications Generic Name Dose Route Start Last Admin Trade Name Freq PRN Reason Stop Dose Admin Acetaminophen 1,000 mg 06/03/24 04:56 Acetaminophen 500 Mg Tablet PO Q6H PRN pain 1-3 Acetic Acid 10 ml 06/04/24 11:30 06/04/24 14:24 Acetic Acid 0.25% Irrig Soln 500 Ml IRRIGATION 06/07/24 09:00 10 ml Q12H [facility]ATH[facility]INE Administration Albuterol/Ipratropium 3 ml 06/03/24 06:00 06/04/24 14:59 Ipratropium 0.5 Mg/Albuterol Sulfate 2.5 Mg Ampul.Neb 3 Ml INHALATION 3 ml Q6HRT [facility]INE Administration Apixaban 5 mg 06/03/24 09:00 06/04/24 08:49 Apixaban 5 Mg Tablet PO 5 mg Q12HR [facility] Administration Azithromycin 500 mg 06/03/24 21:00 06/03/24 22:21 Azithromycin 250 Mg Tablet PO 06/06/24 21:01 500 mg DAILY@2100 [facility] Administration Calcium Carbonate 500 mg 06/03/24 05:41 Calcium Carbonate (Tums) 500 Mg (200 Mg Elemental) BY MOUTH TID PRN Indigestion Escitalopram Oxalate 10 mg 06/03/24 21:00 06/03/24 22:22 Escitalopram Oxalate 10 Mg Tablet PO 10 mg QHS [facility] Administration Ferrous Sulfate 325 mg 06/03/24 12:00 06/04/24 11:53 Ferrous Sulfate [address] BY MOUTH 325 mg 1200,1700 [facility] Administration Flecainide Acetate 50 mg 06/03/24 09:00 06/04/24 08:49 Flecainide Acetate 50 Mg Tablet PO 50 mg Q12HR [facility] Administration Furosemide 40 mg 06/03/24 09:00 06/04/24 08:49 Furosemide Inj 40 Mg/4 Ml Vial IV PUSH 40 mg Q12HR [facility] Administration Guaifenesin 600 mg 06/03/24 21:00 06/04/24 08:49 Guaifenesin 12 Hr 600 Mg Tabcr PO 600 mg Q12HR [facility] Administration Hyoscyamine 0.125 mg 06/03/24 04:56 Hyoscyamine Sulfate 0.125 Mg Tablet PO BID PRN cramping Cefepime HCl 2 gm in 50 mls @ 100 mls/hr 06/03/24 15:00 06/04/24 14:24 Maxipime 2 Gm/Ns 50 Ml IVPB 100 mls/hr Q12H [facility] Administration Insulin Aspart 10 units 06/03/24 09:00 06/04/24 11:54 Insulin Aspart (*Bkc) 100 Units/Ml SUB-Q 10 units TID [facility] Administration Insulin Glargine 22 units 06/03/24 18:00 06/03/24 17:09 Insulin Glargine (*Bkc) 100 Units/Ml SUB-Q 22 units QPM [facility] Administration Levothyroxine Sodium 150 mcg 06/06/24 06:30 Levothyroxine Sodium 150 Mcg Tablet PO Ramirez@0630 [facility] Levothyroxine Sodium 75 mcg 06/04/24 06:30 06/04/24 05:20 Levothyroxine Sodium 75 Mcg Tablet PO 75 mcg MoTuWeThFrSa@0630 [facility] Administration Miconazole Nitrate 1 applic 06/03/24 09:00 06/04/24 08:53 Miconazole Nitrate 2% Cream 30 Gm Tube TOPICAL 1 applic BID [facility] Administration Nitroglycerin 0.4 mg 06/03/24 04:56 Nitroglycerin Sl 0.4 Mg Tablet SUBLINGUAL PRN PRN Chest Pain Pantoprazole Sodium 40 mg 06/03/24 09:00 06/04/24 08:49 Pantoprazole 40 Mg Tablet PO 40 mg DAILY [facility] Administration Rosuvastatin Calcium 10 mg 06/03/24 21:00 06/03/24 22:21 Rosuvastatin 10 Mg Tablet PO 10 mg HS [facility] Administration Saccharomyces Boulardii 250 mg 06/03/24 09:00 06/04/24 08:49 Saccharomyces Boulardii 250 Mg Capsule PO 250 mg BID [facility] Administration Silver Sulfadiazine 1 applic 06/03/24 09:00 06/04/24 08:53 Silver Sulfadiazine 1% Cr 400 Gm Jar (*Bkc) TOPICAL 1 applic DAILY [facility] Administration Triamcinolone Acetonide 1 applic 06/03/24 04:56 Triamcinolone Acet 0.1% Cream 15 Gm Tube TOPICAL BID PRN rash Radiology Results: ITS Impressions Chest X-Ray 06/02/24 21:16 Impression: 1: Cardiomegaly with mild interstitial edema. Labs Labs: Laboratory Results - last 24 hr 06/03/24 06/03/24 06/04/24 16:27 19:51 07:56 POC Capillary Glucose 316 H 238 H 201 H 06/04/24 12:12 POC Capillary Glucose 268 H Quality VTE Prophylaxis VTE prophylaxis: pharmacologic ordered
[2024-06-04 16:56] LABS: Glucose Point of Care 252 mg/dl (65-105)
[2024-06-04] MEDS: INSULIN GLARGINE (*BKC) 100 UNITS/ML 22 UNITS SUB-Q (17:23)
[2024-06-04 21:17] LABS: Glucose Point of Care 166 mg/dl (65-105)
[2024-06-04] MEDS: ROSUVASTATIN 10 MG TABLET PO (21:19)
[2024-06-04] MEDS: ESCITALOPRAM OXALATE 10 MG TABLET PO (21:20)
[2024-06-04] MEDS: AZITHROMYCIN 250 MG TABLET 500 MG PO (21:20)
[2024-06-05] VITALS (19 sets, daily range): BP systolic 124–156; BP diastolic 49–66; PULSE 70–100; RESP 16–20; TEMP 36.2–36.5; O2SAT 96–99
[2024-06-05] MEDS: ACETIC ACID 0.25% IRRIG SOLN 500 ML 10 ML IRRIGATION ×3 (00:03→21:32)
[2024-06-05] MEDS: IPRATROPIUM 0.5 MG/ALBUTEROL SULFATE 2.5 MG AMPUL.NEB 3 ML INHALATION ×4 (02:39→21:44)
[2024-06-05] MEDS: CEFEPIME 2 GM/NS 50 ML 2 GM/50 ML BAG IVPB ×2 (04:48→14:55)
[2024-06-05] MEDS: ACETAMINOPHEN 500 MG TABLET 1000 MG PO (05:05)
[2024-06-05] MEDS: LEVOTHYROXINE SODIUM 75 MCG TABLET PO (06:38)
[2024-06-05 07:48] LABS: Glucose Point of Care 175 mg/dl (65-105)
[2024-06-05] MEDS: APIXABAN 5 MG TABLET PO ×2 (09:16→21:32)
[2024-06-05] MEDS: FUROSEMIDE INJ 40 MG/4 ML VIAL IV PUSH ×2 (09:16→21:31)
[2024-06-05] MEDS: SACCHAROMYCES BOULARDII 250 MG CAPSULE PO ×2 (09:17→17:12)
[2024-06-05] MEDS: guaiFENesin 12 HR 600 MG TABCR PO ×2 (09:17→21:32)
[2024-06-05] MEDS: PANTOPRAZOLE 40 MG TABLET PO (09:17)
[2024-06-05] MEDS: FLECAINIDE ACETATE 50 MG TABLET PO ×2 (09:17→21:31)
[2024-06-05] MEDS: SILVER SULFADIAZINE 1% CR 400 GM JAR (*BKC) 1 APPLIC TOPICAL (09:18)
[2024-06-05] MEDS: MICONAZOLE NITRATE 2% CREAM 30 GM TUBE 1 APPLIC TOPICAL ×2 (09:18→17:12)
[2024-06-05] MEDS: INSULIN ASPART (*BKC) 100 UNITS/ML 10 UNITS SUB-Q ×3 (09:25→17:12)
--- NOTE | 2024-06-05 11:38 | PM.IMPN ---
Progress Note: A&P Assessment and Plan (1) Nosocomial pneumonia: Code(s): J18.9 - Pneumonia, unspecified organism; Y95 - Nosocomial condition Status: Acute Assessment and Plan: Admit to med tele Cultures in progress BC negative Started nosocomial pneumonia antibiotic by antibiotic stewardship Supportive care -pt was just here with the same symptoms- will switch antibiotics to Cefepime 2gm q12h continue azithromycin 500 mg daily MRSA neg- so will stop vanc Contninue zithromyacin- last dose 06/06 2100 cefepime 2gm q12h (started on 06/03) (2) Hypoxic respiratory failure: Code(s): J96.91 - Respiratory failure, unspecified with hypoxia Status: Acute Assessment and Plan: Patient on 2 L of oxygen by nasal cannula continue to monitor resp status try to wean off oxygen if able down to 1 l today (3) Congestive heart failure: Code(s): I50.9 - Heart failure, unspecified Status: Acute Assessment and Plan: Monitor daily intake and output Diurese as needed i/o reviewed stable (4) Paroxysmal atrial fibrillation: Code(s): I48.0 - Paroxysmal atrial fibrillation Status: Acute Assessment and Plan: Rate controlled and anticoagulated (5) GERD (gastroesophageal reflux disease): Code(s): K21.9 - Gastro-esophageal reflux disease without esophagitis Status: Acute Assessment and Plan: PPI-stable (6) Ileostomy in place: Code(s): Z93.2 - Ileostomy status Status: Acute Assessment and Plan: Ileostomy care (7) Chronic indwelling Schmitt catheter: Code(s): Z97.8 - Presence of other specified devices Status: Acute Assessment and Plan: Catheter care (8) CATY (obstructive sleep apnea): Code(s): G47.33 - Obstructive sleep apnea (adult) (pediatric) Status: Acute Assessment and Plan: CPAP at nighttime (9) Type 2 diabetes mellitus: Qualifiers: Diabetes mellitus complication status: without complication 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 Qualified Code(s): E11.9 - Type 2 diabetes mellitus without complications; Z79.4 - custodial (current) use of insulin Code(s): E11.9 - Type 2 diabetes mellitus without complications Status: Acute Assessment and Plan: Resume home meds lantus 22 units hs, aspart 10 units tid with meals hypoglycemia protocol AccuCheck ac/hs BS reviewed- stable Time Spent With Patient Time with patient: 25 - 35 minutes Subjective Date/time seen: 06/05/24 11:38 Interval history: 83-year-old female with past medical history significant for hypoxic respiratory failure on home O2 2 L by nasal cannula, after recent admission and discharge from [facility], paroxysmal atrial fibrillation, functional quadriplegic, Phyllis lift, ileostomy in place, rate controlled anticoagulated, insulin-dependent diabetes mellitus, hypothyroidism, patient resides at [facility] was brought to the ED for evaluation due to productive cough, shortness of breath, wheezing. Patient has been admitted for further evaluation management and treatment. Chest Xray: Cardiomegaly with mild interstitial edema. 05/24 - pt is seen and examined. She is up in the chair- cough, feels very congestion. Eating and drinking ok. 06/04 - pt is seen today- she is up in the chair. She gets a little more sob and starts to cough when she is being assessed. She denies any other acute problems: no n/v/d, no chest pain. She is still on oxygen. Cough medicine was ordered, duoneb available. 06/05 able to titrate her oxygen down to 1 l this am. she is stable, no acute events overnight. Review of Systems Review of Systems: Shortness of breath, productive cough, wheezing. Exam Narrative: Patient is laying in a stretcher Const: General: comfortable, no acute distress, well developed, alert, awake, ill appearing chronically and average body habitus Nutritional Appearance: average body habitus Orientation/consciousness: patient oriented x3 Other: Nasal cannula on HENMT: Head: normal to inspection, normocephalic and atraumatic Ears: hearing grossly normal bilaterally Face/Nose/Sinus: normal facial exam Face and sinus: normal facial exam Eyes: General: appearance normal, both eyes and all related structures Pupils: Equal, round and reactive pupils present EOM: EOMs intact bilaterally Neck: Neck: full ROM, no lymphadenopathy and no JVD Thyroid: thyroid normal Lymphatic: no lymphadenopathy noted Resp: Effort & Inspection: normal respiratory effort and able to speak in complete sentences Auscultation: clear to auscultation bilaterally, crackles, rales and wheezes Cardio: Jugular venous distension: no JVD Rate: regular rate Rhythm: regular rhythm Heart sounds: S1 normal heart sound present and S2 normal heart sound present GI: Inspection: other (Ileostomy in place) : General: Yes deferred Skin: Rashes: no rashes Wounds: no wounds Neuro: General: patient oriented x3, CN's II-XI intact bilaterally and Unable to assess gait Cranial nerves: Yes CN's II-XII intact bilaterally and Yes Equal, round and reactive pupils present Cognition (Neuro): normal cognition Speech: normal speech Gait exam (Neuro): Normal gait present and Unable to assess gait Motor exam (neuro): 5/5 motor strength present throughout Other: Patient is functional quadriplegic Extrem: General: normal to inspection, full ROM, no joint enlargement, no pedal edema and edema bilateral (1+) Other: Unna boots in place Objective Data Vital Signs Vital Signs: Vital Signs - 24 hr 06/04/24 12:00 06/04/24 14:00 06/04/24 15:00 Temperature 98.3 F Pulse Rate 74 71 72 Respiratory Rate 20 18 Blood Pressure 120/73 Pulse Oximetry 97 Oxygen Delivery Oxygen Flow Rate Fraction of Inspired Oxygen 06/04/24 15:15 06/04/24 16:00 06/04/24 20:00 Temperature Pulse Rate 76 75 72 Respiratory Rate 18 Blood Pressure Pulse Oximetry Oxygen Delivery Oxygen Flow Rate Fraction of Inspired Oxygen 06/04/24 20:48 06/04/24 20:58 06/04/24 21:00 Temperature 96.6 F L Pulse Rate 70 72 70 Respiratory Rate 18 18 18 Blood Pressure 160/64 H Pulse Oximetry 100 Oxygen Delivery Oxygen Flow Rate Fraction of Inspired Oxygen 06/04/24 21:19 06/05/24 00:00 06/05/24 02:39 Temperature Pulse Rate 70 71 70 Respiratory Rate 18 Blood Pressure Pulse Oximetry Oxygen Delivery Oxygen Flow Rate Fraction of Inspired Oxygen 06/05/24 02:49 06/05/24 04:00 06/05/24 05:29 Temperature 97.1 F L Pulse Rate 71 72 74 Respiratory Rate 18 20 Blood Pressure 124/49 L Pulse Oximetry 96 Oxygen Delivery Oxygen Flow Rate Fraction of Inspired Oxygen 06/05/24 08:27 06/05/24 08:27 06/05/24 08:38 Temperature Pulse Rate 70 72 Respiratory Rate 20 20 Blood Pressure Pulse Oximetry 96 Oxygen Delivery Nasal Cannula Oxygen Flow Rate 1 Fraction of Inspired Oxygen 24 06/05/24 09:17 Temperature Pulse Rate 78 Respiratory Rate Blood Pressure Pulse Oximetry Oxygen Delivery Oxygen Flow Rate Fraction of Inspired Oxygen Intake/Output Intake/Output: Intake & Output 06/02/24 06/03/24 06/04/24 06/05/24 23:59 23:59 23:59 23:59 Intake Total 1420 2260 840 Output Total 3400 4050 2550 Balance -8896 -0786 -2390 Meds/Results Medications: Active Medications Generic Name Dose Route Start Last Admin Trade Name Freq PRN Reason Stop Dose Admin Acetaminophen 1,000 mg 06/03/24 04:56 06/05/24 05:05 Acetaminophen 500 Mg Tablet PO 1,000 mg Q6H PRN Administration pain 1-3 Acetic Acid 10 ml 06/04/24 11:30 06/05/24 00:03 Acetic Acid 0.25% Irrig Soln 500 Ml IRRIGATION 06/07/24 09:00 10 ml Q12H KATHARINE Administration Albuterol/Ipratropium 3 ml 06/03/24 06:00 06/05/24 08:26 Ipratropium 0.5 Mg/Albuterol Sulfate 2.5 Mg Ampul.Neb 3 Ml INHALATION 3 ml Q6HRT KATHARINE Administration Apixaban 5 mg 06/03/24 09:00 06/05/24 09:16 Apixaban 5 Mg Tablet PO 5 mg Q12HR KATHARINE Administration Azithromycin 500 mg 06/03/24 21:00 06/04/24 21:20 Azithromycin 250 Mg Tablet PO 06/06/24 21:01 500 mg DAILY@2100 KATHARINE Administration Calcium Carbonate 500 mg 06/03/24 05:41 Calcium Carbonate (Tums) 500 Mg (200 Mg Elemental) BY MOUTH TID PRN Indigestion Dextrose 12.5 gm 06/04/24 15:41 Dextrose 50% 25 Gm/50 Ml Syringe IV PUSH PRN PRN Hypoglycemia Protocol Escitalopram Oxalate 10 mg 06/03/24 21:00 06/04/24 21:20 Escitalopram Oxalate 10 Mg Tablet PO 10 mg QHS KATHARINE Administration Ferrous Sulfate 325 mg 06/03/24 12:00 06/04/24 16:40 Ferrous Sulfate [address] BY MOUTH 325 mg 1200,1700 KATHARINE Administration Flecainide Acetate 50 mg 06/03/24 09:00 06/05/24 09:17 Flecainide Acetate 50 Mg Tablet PO 50 mg Q12HR KATHARINE Administration Furosemide 40 mg 06/03/24 09:00 06/05/24 09:16 Furosemide Inj 40 Mg/4 Ml Vial IV PUSH 40 mg Q12HR KATHARINE Administration Glucagon 1 mg 06/04/24 15:41 Glucagon For Inj 1 Mg Vial IM PRN PRN Hypoglycemia Protocol Glucose 15 gm 06/04/24 15:41 Glucose Oral Gel 15 Gm Of Glucse In 37.5 Gm Tube PO PRN PRN Hypoglycemia Protocol Guaifenesin 600 mg 06/03/24 21:00 06/05/24 09:17 Guaifenesin 12 Hr 600 Mg Tabcr PO 600 mg Q12HR KATHARINE Administration Hyoscyamine 0.125 mg 06/03/24 04:56 Hyoscyamine Sulfate 0.125 Mg Tablet PO BID PRN cramping Cefepime HCl 2 gm in 50 mls @ 100 mls/hr 06/03/24 15:00 06/05/24 04:48 Maxipime 2 Gm/Ns 50 Ml IVPB 100 mls/hr Q12H KATHARINE Administration Dextrose 1,000 mls @ 100 mls/hr 06/04/24 15:41 Dextrose 5% 1,000 Ml IVPB PRN PRN Hypoglycemia Protocol Insulin Aspart 10 units 06/03/24 09:00 06/05/24 09:25 Insulin Aspart (*Bkc) 100 Units/Ml SUB-Q 10 units TID KATHARINE Administration Insulin Glargine 22 units 06/03/24 18:00 06/04/24 17:23 Insulin Glargine (*Bkc) 100 Units/Ml SUB-Q 22 units QPM KATHARINE Administration Levothyroxine Sodium 150 mcg 06/06/24 06:30 Levothyroxine Sodium 150 Mcg Tablet PO Ramirez@0630 [facility] Levothyroxine Sodium 75 mcg 06/04/24 06:30 06/05/24 06:38 Levothyroxine Sodium 75 Mcg Tablet PO 75 mcg [email or web address] [facility] Administration Miconazole Nitrate 1 applic 06/03/24 09:00 06/05/24 09:18 Miconazole Nitrate 2% Cream 30 Gm Tube TOPICAL 1 applic BID KATHARINE Administration Nitroglycerin 0.4 mg 06/03/24 04:56 Nitroglycerin Sl 0.4 Mg Tablet SUBLINGUAL PRN PRN Chest Pain Pantoprazole Sodium 40 mg 06/03/24 09:00 06/05/24 09:17 Pantoprazole 40 Mg Tablet PO 40 mg DAILY KATHARINE Administration Rosuvastatin Calcium 10 mg 06/03/24 21:00 06/04/24 21:19 Rosuvastatin 10 Mg Tablet PO 10 mg HS KATHARINE Administration Saccharomyces Boulardii 250 mg 06/03/24 09:00 06/05/24 09:17 Saccharomyces Boulardii 250 Mg Capsule PO 250 mg BID KATHARINE Administration Silver Sulfadiazine 1 applic 06/03/24 09:00 06/05/24 09:18 Silver Sulfadiazine 1% Cr 400 Gm Jar (*Bkc) TOPICAL 1 applic DAILY KATHARINE Administration Triamcinolone Acetonide 1 applic 06/03/24 04:56 Triamcinolone Acet 0.1% Cream 15 Gm Tube TOPICAL BID PRN rash Radiology Results: ITS Impressions Chest X-Ray 06/02/24 21:16 Impression: 1: Cardiomegaly with mild interstitial edema. Labs Labs: Laboratory Results - last 24 hr 06/04/24 06/04/24 06/04/24 12:12 16:54 20:53 POC Capillary Glucose 268 H 252 H 166 H 06/05/24 07:34 POC Capillary Glucose 175 H Quality VTE Prophylaxis VTE prophylaxis: pharmacologic ordered
[2024-06-05 11:47] LABS: Glucose Point of Care 208 mg/dl (65-105)
[2024-06-05 12:09] LABS: Hematocrit 38.9 % (37.0-47.0); Hemoglobin 12.2 g/dL (12.0-15.0); Mean Corpuscular HGB Conc 31.4 g/dl (32-36); Mean Corpuscular Hemoglobin 26.8 pg (26-34); Mean Corpuscular Volume 85.5 fl (80-100); Mean Platelet Volume 10.4 fl (7.4-10.4); Platelet Count Result 380 k/mm3 (150-375); Red Blood Count 4.55 M/mm3 (4.2-5.4); Red Cell Distribution Width 13.5 % (11.5-14.5); White Blood Count 12.3 K/mm3 (4.5-10.0)
[2024-06-05 12:20] LABS: Anion Gap 6 mmol/L (4-12); Blood Urea Nitrogen 15 mg/dL (7-17); Calcium 9.1 mg/dL (8.4-10.2); Carbon Dioxide 28 mmol/L (22-30); Chloride 103 mmol/L (98-107); Estimated Glomerular Filt Rate > 60; Glucose 187 mg/dL (65-110); Potassium 3.3 mmol/L (3.4-5.0); Sodium 137 mmol/L (137-145)
[2024-06-05] MEDS: FERROUS SULFATE 325 MG TABLET DR BY MOUTH ×2 (12:38→17:17)
--- NOTE | 2024-06-05 13:11 | PC.NURSE ---
Patient resting in bed for morning assessment. Long time family friend, Alanna, present at bedside. Alanna states daughter, Nancy needs to be called over the weekend, . Patient cooperative and complaint with medication. She is able to swallow pills and feed herself without difficulty. No complaints of pain at this time.
[2024-06-05 16:49] LABS: Glucose Point of Care 199 mg/dl (65-105)
[2024-06-05] MEDS: INSULIN GLARGINE (*BKC) 100 UNITS/ML 22 UNITS SUB-Q (17:47)
[2024-06-05 21:24] LABS: Glucose Point of Care 155 mg/dl (65-105)
[2024-06-05] MEDS: ESCITALOPRAM OXALATE 10 MG TABLET PO (21:31)
[2024-06-05] MEDS: AZITHROMYCIN 250 MG TABLET 500 MG PO (21:31)
[2024-06-05] MEDS: ROSUVASTATIN 10 MG TABLET PO (21:32)
[2024-06-06] VITALS (18 sets, daily range): BP systolic 129–149; BP diastolic 40–62; PULSE 68–84; RESP 16–20; TEMP 35.8–36.9; O2SAT 95–98
[2024-06-06] MEDS: CEFEPIME 2 GM/NS 50 ML 2 GM/50 ML BAG IVPB ×2 (02:04→15:00)
[2024-06-06] MEDS: IPRATROPIUM 0.5 MG/ALBUTEROL SULFATE 2.5 MG AMPUL.NEB 3 ML INHALATION ×4 (02:43→19:56)
[2024-06-06] MEDS: LEVOTHYROXINE SODIUM 150 MCG TABLET PO (05:39)
[2024-06-06 08:17] LABS: Glucose Point of Care 154 mg/dl (65-105)
[2024-06-06] MEDS: FUROSEMIDE INJ 40 MG/4 ML VIAL IV PUSH ×2 (09:12→21:34)
[2024-06-06] MEDS: SACCHAROMYCES BOULARDII 250 MG CAPSULE PO ×2 (09:12→18:42)
[2024-06-06] MEDS: FLECAINIDE ACETATE 50 MG TABLET PO ×2 (09:12→21:34)
[2024-06-06] MEDS: PANTOPRAZOLE 40 MG TABLET PO (09:12)
[2024-06-06] MEDS: APIXABAN 5 MG TABLET PO ×2 (09:12→21:34)
[2024-06-06] MEDS: MICONAZOLE NITRATE 2% CREAM 30 GM TUBE 1 APPLIC TOPICAL ×2 (09:13→18:42)
[2024-06-06] MEDS: guaiFENesin 12 HR 600 MG TABCR PO ×2 (09:13→21:34)
[2024-06-06] MEDS: INSULIN ASPART (*BKC) 100 UNITS/ML 10 UNITS SUB-Q ×3 (09:13→18:42)
[2024-06-06] MEDS: SILVER SULFADIAZINE 1% CR 400 GM JAR (*BKC) 1 APPLIC TOPICAL (09:13)
--- NOTE | 2024-06-06 10:17 | PM.IMPN ---
Progress Note: A&P Assessment and Plan (1) Nosocomial pneumonia: Code(s): J18.9 - Pneumonia, unspecified organism; Y95 - Nosocomial condition Status: Acute Assessment and Plan: Admit to med tele Cultures in progress BC negative Started nosocomial pneumonia antibiotic by antibiotic stewardship Supportive care -pt was just here with the same symptoms- will switch antibiotics to Cefepime 2gm q12h continue azithromycin 500 mg daily MRSA neg- so will stop vanc Contninue zithromyacin- last dose 06/06 2100 cefepime 2gm q12h (started on 06/03) (2) Hypoxic respiratory failure: Code(s): J96.91 - Respiratory failure, unspecified with hypoxia Status: Acute Assessment and Plan: Patient on 2 L of oxygen by nasal cannula continue to monitor resp status try to wean off oxygen if able down to 1 l today (3) Congestive heart failure: Code(s): I50.9 - Heart failure, unspecified Status: Acute Assessment and Plan: Monitor daily intake and output Diurese as needed i/o reviewed stable (4) Paroxysmal atrial fibrillation: Code(s): I48.0 - Paroxysmal atrial fibrillation Status: Acute Assessment and Plan: Rate controlled and anticoagulated (5) GERD (gastroesophageal reflux disease): Code(s): K21.9 - Gastro-esophageal reflux disease without esophagitis Status: Acute Assessment and Plan: PPI-stable (6) Ileostomy in place: Code(s): Z93.2 - Ileostomy status Status: Acute Assessment and Plan: Ileostomy care (7) Chronic indwelling Schmitt catheter: Code(s): Z97.8 - Presence of other specified devices Status: Acute Assessment and Plan: Catheter care (8) CATY (obstructive sleep apnea): Code(s): G47.33 - Obstructive sleep apnea (adult) (pediatric) Status: Acute Assessment and Plan: CPAP at nighttime (9) Type 2 diabetes mellitus: Qualifiers: Diabetes mellitus complication status: without complication Diabetes mellitus terminal computer operator insulin use: with [facility] use Qualified Code(s): E11.9 - Type 2 diabetes mellitus without complications; Z79.4 - MCFP (current) use of insulin Code(s): E11.9 - Type 2 diabetes mellitus without complications Status: Acute Assessment and Plan: Resume home meds lantus 22 units hs, aspart 10 units tid with meals hypoglycemia protocol AccuCheck ac/hs BS reviewed- stable Subjective Date/time seen: 06/06/24 10:17 Interval history: 83-year-old female with past medical history significant for hypoxic respiratory failure on home O2 2 L by nasal cannula, after recent admission and discharge from [facility], paroxysmal atrial fibrillation, functional quadriplegic, Phyllis lift, ileostomy in place, rate controlled anticoagulated, insulin-dependent diabetes mellitus, hypothyroidism, patient resides at [facility] was brought to the ED for evaluation due to productive cough, shortness of breath, wheezing. Patient has been admitted for further evaluation management and treatment. Chest Xray: Cardiomegaly with mild interstitial edema. 05/24 - pt is seen and examined. She is up in the chair- cough, feels very congestion. Eating and drinking ok. 06/04 - pt is seen today- she is up in the chair. She gets a little more sob and starts to cough when she is being assessed. She denies any other acute problems: no n/v/d, no chest pain. She is still on oxygen. Cough medicine was ordered, duoneb available. 06/05 able to titrate her oxygen down to 1 l this am. she is stable, no acute events overnight. 06/06 was turned to 2 l this am but documented oxygen level is 96- will wean off today as sats remained stable overnight. Anticipate downgrading antibiotics to po tomorrow and discharge in the next few days. PT/OT ordered. UP to the chair TID. Family at the bedside- updated Review of Systems Review of Systems: Shortness of breath, productive cough, wheezing. Exam Narrative: Patient is laying in a stretcher Const: General: comfortable, no acute distress, well developed, alert, awake, ill appearing chronically and average body habitus Nutritional Appearance: average body habitus Orientation/consciousness: patient oriented x3 Other: Nasal cannula on HENMT: Head: normal to inspection, normocephalic and atraumatic Ears: hearing grossly normal bilaterally Face/Nose/Sinus: normal facial exam Face and sinus: normal facial exam Eyes: General: appearance normal, both eyes and all related structures Pupils: Equal, round and reactive pupils present EOM: EOMs intact bilaterally Neck: Neck: full ROM, no lymphadenopathy and no JVD Thyroid: thyroid normal Lymphatic: no lymphadenopathy noted Resp: Effort & Inspection: normal respiratory effort and able to speak in complete sentences Auscultation: clear to auscultation bilaterally, crackles, rales and wheezes Cardio: Jugular venous distension: no JVD Rate: regular rate Rhythm: regular rhythm Heart sounds: S1 normal heart sound present and S2 normal heart sound present GI: Inspection: other (Ileostomy in place) : General: Yes deferred Skin: Rashes: no rashes Wounds: no wounds Neuro: General: patient oriented x3, CN's II-XI intact bilaterally and Unable to assess gait Cranial nerves: Yes CN's II-XII intact bilaterally and Yes Equal, round and reactive pupils present Cognition (Neuro): normal cognition Speech: normal speech Gait exam (Neuro): Normal gait present and Unable to assess gait Motor exam (neuro): 5/5 motor strength present throughout Other: Patient is functional quadriplegic Extrem: General: normal to inspection, full ROM, no joint enlargement, no pedal edema and edema bilateral (1+) Other: Unna boots in place Objective Data Vital Signs Vital Signs: Vital Signs - 24 hr 06/05/24 12:00 06/05/24 13:54 06/05/24 13:54 Temperature Pulse Rate 75 77 Respiratory Rate 20 Blood Pressure Pulse Oximetry 98 Oxygen Delivery Nasal Cannula Oxygen Flow Rate 1 Fraction of Inspired Oxygen 24 06/05/24 14:00 06/05/24 14:06 06/05/24 16:00 Temperature 97.6 F Pulse Rate 75 71 82 Respiratory Rate 20 20 Blood Pressure 130/62 Pulse Oximetry 99 Oxygen Delivery Oxygen Flow Rate Fraction of Inspired Oxygen 06/05/24 20:00 06/05/24 20:00 06/05/24 21:15 Temperature 97.7 F Pulse Rate 75 74 Respiratory Rate 18 Blood Pressure 156/66 H Pulse Oximetry 96 97 Oxygen Delivery Nasal Cannula Oxygen Flow Rate 1 Fraction of Inspired Oxygen 06/05/24 21:31 06/05/24 21:44 06/05/24 21:50 Temperature Pulse Rate 100 73 74 Respiratory Rate 16 16 Blood Pressure Pulse Oximetry Oxygen Delivery Oxygen Flow Rate Fraction of Inspired Oxygen 06/06/24 00:00 06/06/24 02:40 06/06/24 02:49 Temperature Pulse Rate 69 69 71 Respiratory Rate 16 16 Blood Pressure Pulse Oximetry Oxygen Delivery Oxygen Flow Rate Fraction of Inspired Oxygen 06/06/24 04:00 06/06/24 06:00 06/06/24 08:29 Temperature 96.5 F L Pulse Rate 70 68 81 Respiratory Rate 16 16 Blood Pressure 137/40 L Pulse Oximetry 98 Oxygen Delivery Oxygen Flow Rate Fraction of Inspired Oxygen 06/06/24 08:29 06/06/24 08:39 Temperature Pulse Rate 70 Respiratory Rate 16 Blood Pressure Pulse Oximetry 96 Oxygen Delivery Nasal Cannula Oxygen Flow Rate 2 Fraction of Inspired Oxygen Intake/Output Intake/Output: Intake & Output 06/03/24 06/04/24 06/05/24 06/06/24 23:59 23:59 23:59 23:59 Intake Total 1420 2260 1300 350 Output Total 3400 4050 3750 2250 Balance -1980 -3790 -8830 -1900 Meds/Results Medications: Active Medications Generic Name Dose Route Start Last Admin Trade Name Freq PRN Reason Stop Dose Admin Acetaminophen 1,000 mg 06/03/24 04:56 06/05/24 05:05 Acetaminophen 500 Mg Tablet PO 1,000 mg Q6H PRN Administration pain 1-3 Acetic Acid 10 ml 06/04/24 11:30 06/05/24 21:32 Acetic Acid 0.25% Irrig Soln 500 Ml IRRIGATION 06/07/24 09:00 10 ml Q12H KATHARINE Administration Albuterol/Ipratropium 3 ml 06/03/24 06:00 06/06/24 08:27 Ipratropium 0.5 Mg/Albuterol Sulfate 2.5 Mg Ampul.Neb 3 Ml INHALATION 3 ml Q6HRT KATHARINE Administration Apixaban 5 mg 06/03/24 09:00 06/06/24 09:12 Apixaban 5 Mg Tablet PO 5 mg Q12HR KATHARINE Administration Azithromycin 500 mg 06/03/24 21:00 06/05/24 21:31 Azithromycin 250 Mg Tablet PO 06/06/24 21:01 500 mg DAILY@2100 KATHARINE Administration Calcium Carbonate 500 mg 06/03/24 05:41 Calcium Carbonate (Tums) 500 Mg (200 Mg Elemental) BY MOUTH TID PRN Indigestion Dextrose 12.5 gm 06/04/24 15:41 Dextrose 50% 25 Gm/50 Ml Syringe IV PUSH PRN PRN Hypoglycemia Protocol Escitalopram Oxalate 10 mg 06/03/24 21:00 06/05/24 21:31 Escitalopram Oxalate 10 Mg Tablet PO 10 mg QHS KATHARINE Administration Ferrous Sulfate 325 mg 06/03/24 12:00 06/05/24 17:17 Ferrous Sulfate [address] BY MOUTH 325 mg 1200,1700 KATHARINE Administration Flecainide Acetate 50 mg 06/03/24 09:00 06/06/24 09:12 Flecainide Acetate 50 Mg Tablet PO 50 mg Q12HR KATHARINE Administration Furosemide 40 mg 06/03/24 09:00 06/06/24 09:12 Furosemide Inj 40 Mg/4 Ml Vial IV PUSH 40 mg Q12HR KATHARINE Administration Glucagon 1 mg 06/04/24 15:41 Glucagon For Inj 1 Mg Vial IM PRN PRN Hypoglycemia Protocol Glucose 15 gm 06/04/24 15:41 Glucose Oral Gel 15 Gm Of Glucse In 37.5 Gm Tube PO PRN PRN Hypoglycemia Protocol Guaifenesin 600 mg 06/03/24 21:00 06/06/24 09:13 Guaifenesin 12 Hr 600 Mg Tabcr PO 600 mg Q12HR KATHARINE Administration Hyoscyamine 0.125 mg 06/03/24 04:56 Hyoscyamine Sulfate 0.125 Mg Tablet PO BID PRN cramping Cefepime HCl 2 gm in 50 mls @ 100 mls/hr 06/03/24 15:00 06/06/24 02:04 Maxipime 2 Gm/Ns 50 Ml IVPB 100 mls/hr Q12H KATHARINE Administration Dextrose 1,000 mls @ 100 mls/hr 06/04/24 15:41 Dextrose 5% 1,000 Ml IVPB PRN PRN Hypoglycemia Protocol Insulin Aspart 10 units 06/03/24 09:00 06/06/24 09:13 Insulin Aspart (*Bkc) 100 Units/Ml SUB-Q 10 units TID KATHARINE Administration Insulin Glargine 22 units 06/03/24 18:00 06/05/24 17:47 Insulin Glargine (*Bkc) 100 Units/Ml SUB-Q 22 units QPM KATHARINE Administration Levothyroxine Sodium 150 mcg 06/06/24 06:30 06/06/24 05:39 Levothyroxine Sodium 150 Mcg Tablet PO 150 mcg Ramirez@0630 KATHARINE Administration Levothyroxine Sodium 75 mcg 06/04/24 06:30 06/05/24 06:38 Levothyroxine Sodium 75 Mcg Tablet PO 75 mcg [email or web address]@0630 KATHARINE Administration Miconazole Nitrate 1 applic 06/03/24 09:00 06/06/24 09:13 Miconazole Nitrate 2% Cream 30 Gm Tube TOPICAL 1 applic BID KATHARINE Administration Nitroglycerin 0.4 mg 06/03/24 04:56 Nitroglycerin Sl 0.4 Mg Tablet SUBLINGUAL PRN PRN Chest Pain Pantoprazole Sodium 40 mg 06/03/24 09:00 06/06/24 09:12 Pantoprazole 40 Mg Tablet PO 40 mg DAILY KATHARINE Administration Rosuvastatin Calcium 10 mg 06/03/24 21:00 06/05/24 21:32 Rosuvastatin 10 Mg Tablet PO 10 mg HS KATHARINE Administration Saccharomyces Boulardii 250 mg 06/03/24 09:00 06/06/24 09:12 Saccharomyces Boulardii 250 Mg Capsule PO 250 mg BID KATHARINE Administration Silver Sulfadiazine 1 applic 06/03/24 09:00 06/06/24 09:13 Silver Sulfadiazine 1% Cr 400 Gm Jar (*Bkc) TOPICAL 1 applic DAILY KATHARINE Administration Triamcinolone Acetonide 1 applic 06/03/24 04:56 Triamcinolone Acet 0.1% Cream 15 Gm Tube TOPICAL BID PRN rash Radiology Results: ITS Impressions Chest X-Ray 06/02/24 21:16 Impression: 1: Cardiomegaly with mild interstitial edema. Labs Labs: Laboratory Results - last 24 hr 06/05/24 06/05/24 06/05/24 11:25 12:01 16:33 WBC 12.3 H RBC 4.55 Hgb 12.2 Hct 38.9 MCV 85.5 MCH 26.8 MCHC 31.4 L RDW 13.5 Plt Count 380 H D MPV 10.4 Sodium 137 Potassium 3.3 L Chloride 103 Carbon Dioxide 28 Anion Gap 6 BUN 15 Creatinine 0.67 L Estim Creat Clear Calc Not Reportable Estimated GFR > 60 Glucose 187 H POC Capillary Glucose 208 H 199 H Calcium 9.1 06/05/24 06/06/24 21:19 08:12 WBC RBC Hgb Hct MCV MCH MCHC RDW Plt Count MPV Sodium Potassium Chloride Carbon Dioxide Anion Gap BUN Creatinine Estim Creat Clear Calc Estimated GFR Glucose POC Capillary Glucose 155 H 154 H Calcium Quality VTE Prophylaxis VTE prophylaxis: pharmacologic ordered
[2024-06-06 12:21] LABS: Glucose Point of Care 174 mg/dl (65-105)
[2024-06-06] MEDS: ACETIC ACID 0.25% IRRIG SOLN 500 ML 10 ML IRRIGATION ×2 (12:31→21:35)
[2024-06-06] MEDS: FERROUS SULFATE 325 MG TABLET DR BY MOUTH ×2 (12:33→18:42)
[2024-06-06 14:24] LABS: Hematocrit 39.9 % (37.0-47.0); Hemoglobin 12.5 g/dL (12.0-15.0); Mean Corpuscular HGB Conc 31.3 g/dl (32-36); Mean Corpuscular Hemoglobin 26.9 pg (26-34); Mean Platelet Volume 10.5 fl (7.4-10.4); Platelet Count Result 428 k/mm3 (150-375); Red Blood Count 4.64 M/mm3 (4.2-5.4); Red Cell Distribution Width 13.8 % (11.5-14.5); White Blood Count 16.8 K/mm3 (4.5-10.0)
[2024-06-06 14:36] LABS: Anion Gap 7 mmol/L (4-12); Blood Urea Nitrogen 15 mg/dL (7-17); Calcium 9.4 mg/dL (8.4-10.2); Carbon Dioxide 24 mmol/L (22-30); Chloride 102 mmol/L (98-107); Estimated Glomerular Filt Rate > 60; Glucose 216 mg/dL (65-110); Potassium 3.2 mmol/L (3.4-5.0); Sodium 133 mmol/L (137-145)
[2024-06-06 14:50] LABS: NT Pro B Type Natriuretic Pept 383 pg/mL (19.9-100)
[2024-06-06 17:13] LABS: Glucose Point of Care 142 mg/dl (65-105)
[2024-06-06] MEDS: INSULIN GLARGINE (*BKC) 100 UNITS/ML 22 UNITS SUB-Q (18:42)
[2024-06-06] MEDS: AZITHROMYCIN 250 MG TABLET 500 MG PO (21:34)
[2024-06-06] MEDS: ROSUVASTATIN 10 MG TABLET PO (21:35)
[2024-06-06] MEDS: ESCITALOPRAM OXALATE 10 MG TABLET PO (21:35)
[2024-06-06 21:40] LABS: Glucose Point of Care 262 mg/dl (65-105)
[2024-06-07] VITALS (15 sets, daily range): BP systolic 139–151; BP diastolic 58–72; PULSE 68–87; RESP 18–20; TEMP 36.1–36.8; O2SAT 95–97
[2024-06-07] MEDS: IPRATROPIUM 0.5 MG/ALBUTEROL SULFATE 2.5 MG AMPUL.NEB 3 ML INHALATION ×3 (02:04→21:00)
[2024-06-07] MEDS: CEFEPIME 2 GM/NS 50 ML 2 GM/50 ML BAG IVPB (02:45)
[2024-06-07] MEDS: LEVOTHYROXINE SODIUM 75 MCG TABLET PO (05:06)
[2024-06-07 07:08] LABS: Hematocrit 40.7 % (37.0-47.0); Hemoglobin 12.8 g/dL (12.0-15.0); Mean Corpuscular HGB Conc 31.4 g/dl (32-36); Mean Corpuscular Hemoglobin 26.7 pg (26-34); Mean Platelet Volume 10.4 fl (7.4-10.4); Platelet Count Result 388 k/mm3 (150-375); Red Blood Count 4.79 M/mm3 (4.2-5.4); Red Cell Distribution Width 13.6 % (11.5-14.5); White Blood Count 14.1 K/mm3 (4.5-10.0)
[2024-06-07 07:19] LABS: Anion Gap 8 mmol/L (4-12); Blood Urea Nitrogen 12 mg/dL (7-17); Calcium 9.9 mg/dL (8.4-10.2); Carbon Dioxide 26 mmol/L (22-30); Chloride 104 mmol/L (98-107); Estimated Glomerular Filt Rate > 60; Glucose 174 mg/dL (65-110); Potassium 3.3 mmol/L (3.4-5.0); Sodium 138 mmol/L (137-145)
[2024-06-07 08:16] LABS: Glucose Point of Care 173 mg/dl (65-105)
[2024-06-07] MEDS: SILVER SULFADIAZINE 1% CR 400 GM JAR (*BKC) 1 APPLIC TOPICAL (09:45)
[2024-06-07] MEDS: guaiFENesin 12 HR 600 MG TABCR PO ×2 (09:45→21:08)
[2024-06-07] MEDS: MICONAZOLE NITRATE 2% CREAM 30 GM TUBE 1 APPLIC TOPICAL ×2 (09:45→16:50)
[2024-06-07] MEDS: FLECAINIDE ACETATE 50 MG TABLET PO ×2 (09:45→21:08)
[2024-06-07] MEDS: SACCHAROMYCES BOULARDII 250 MG CAPSULE PO ×2 (09:45→16:48)
[2024-06-07] MEDS: FUROSEMIDE INJ 40 MG/4 ML VIAL IV PUSH ×2 (09:45→21:08)
[2024-06-07] MEDS: PANTOPRAZOLE 40 MG TABLET PO (09:45)
[2024-06-07] MEDS: APIXABAN 5 MG TABLET PO ×2 (09:45→21:09)
[2024-06-07] MEDS: INSULIN ASPART (*BKC) 100 UNITS/ML 10 UNITS SUB-Q ×3 (09:46→16:49)
--- NOTE | 2024-06-07 10:39 | PM.IMPN ---
Progress Note: A&P Assessment and Plan (1) Nosocomial pneumonia: Code(s): J18.9 - Pneumonia, unspecified organism; Y95 - Nosocomial condition Status: Acute Assessment and Plan: Admit to med tele Cultures in progress BC negative Started nosocomial pneumonia antibiotic by antibiotic stewardship Supportive care -pt was just here with the same symptoms- will switch antibiotics to Cefepime 2gm q12h continue azithromycin 500 mg daily MRSA neg- so will stop vanc Contninue zithromyacin- last dose 06/06 2100 cefepime 2gm q12h (started on 06/03) -downgrade to PO today (2) Hypoxic respiratory failure: Code(s): J96.91 - Respiratory failure, unspecified with hypoxia Status: Acute Assessment and Plan: Patient on 2 L of oxygen by nasal cannula continue to monitor resp status try to wean off oxygen if able (3) Congestive heart failure: Code(s): I50.9 - Heart failure, unspecified Status: Acute Assessment and Plan: Monitor daily intake and output Diurese as needed i/o reviewed stable (4) Paroxysmal atrial fibrillation: Code(s): I48.0 - Paroxysmal atrial fibrillation Status: Acute Assessment and Plan: Rate controlled and anticoagulated (5) GERD (gastroesophageal reflux disease): Code(s): K21.9 - Gastro-esophageal reflux disease without esophagitis Status: Acute Assessment and Plan: PPI-stable (6) Ileostomy in place: Code(s): Z93.2 - Ileostomy status Status: Acute Assessment and Plan: Ileostomy care (7) Chronic indwelling Schmitt catheter: Code(s): Z97.8 - Presence of other specified devices Status: Acute Assessment and Plan: Catheter care (8) CATY (obstructive sleep apnea): Code(s): G47.33 - Obstructive sleep apnea (adult) (pediatric) Status: Acute Assessment and Plan: CPAP at nighttime (9) Type 2 diabetes mellitus: Qualifiers: Diabetes mellitus complication status: without complication Diabetes mellitus custodial insulin use: with computer terminal operator use Qualified Code(s): E11.9 - Type 2 diabetes mellitus without complications; Z79.4 - FDC (current) use of insulin Code(s): E11.9 - Type 2 diabetes mellitus without complications Status: Acute Assessment and Plan: Resume home meds lantus 22 units hs, aspart 10 units tid with meals hypoglycemia protocol AccuCheck ac/hs BS reviewed- stable Time Spent With Patient Time with patient: 25 - 35 minutes Subjective Date/time seen: 06/07/24 10:39 Interval history: 83-year-old female with past medical history significant for hypoxic respiratory failure on home O2 2 L by nasal cannula, after recent admission and discharge from [facility], paroxysmal atrial fibrillation, functional quadriplegic, Phyllis lift, ileostomy in place, rate controlled anticoagulated, insulin-dependent diabetes mellitus, hypothyroidism, patient resides at [facility] was brought to the ED for evaluation due to productive cough, shortness of breath, wheezing. Patient has been admitted for further evaluation management and treatment. Chest Xray: Cardiomegaly with mild interstitial edema. 05/24 - pt is seen and examined. She is up in the chair- cough, feels very congestion. Eating and drinking ok. 06/04 - pt is seen today- she is up in the chair. She gets a little more sob and starts to cough when she is being assessed. She denies any other acute problems: no n/v/d, no chest pain. She is still on oxygen. Cough medicine was ordered, duoneb available. 06/05 able to titrate her oxygen down to 1 l this am. she is stable, no acute events overnight. 06/06 was turned to 2 l this am but documented oxygen level is 96- will wean off today as sats remained stable overnight. Anticipate downgrading antibiotics to po tomorrow and discharge in the next few days. PT/OT ordered. UP to the chair TID. Family at the bedside- updated 06/07 will downgrade iv antibiotics to po. wbc downtrending Review of Systems Review of Systems: Shortness of breath, productive cough Cardiovascular: Cardiovascular: Denies chest pain Respiratory: Respiratory: Reports chest congestion and Reports cough Gastrointestinal: Gastrointestinal: Denies abdominal pain and Reports nausea Psychiatric: Psychiatric: Denies anxiety Exam Narrative: Patient is laying in a stretcher Const: General: comfortable, no acute distress, well developed, alert, awake, ill appearing chronically and average body habitus Nutritional Appearance: average body habitus Orientation/consciousness: patient oriented x3 Other: Nasal cannula on HENMT: Head: normal to inspection, normocephalic and atraumatic Ears: hearing grossly normal bilaterally Face/Nose/Sinus: normal facial exam Face and sinus: normal facial exam Eyes: General: appearance normal, both eyes and all related structures Pupils: Equal, round and reactive pupils present EOM: EOMs intact bilaterally Neck: Neck: full ROM, no lymphadenopathy and no JVD Thyroid: thyroid normal Lymphatic: no lymphadenopathy noted Resp: Effort & Inspection: normal respiratory effort and able to speak in complete sentences Auscultation: clear to auscultation bilaterally, crackles, rales and wheezes Cardio: Jugular venous distension: no JVD Rate: regular rate Rhythm: regular rhythm Heart sounds: S1 normal heart sound present and S2 normal heart sound present GI: Inspection: other (Ileostomy in place) : General: Yes deferred Skin: Rashes: no rashes Wounds: no wounds Neuro: General: patient oriented x3, CN's II-XI intact bilaterally and Unable to assess gait Cranial nerves: Yes CN's II-XII intact bilaterally and Yes Equal, round and reactive pupils present Cognition (Neuro): normal cognition Speech: normal speech Gait exam (Neuro): Normal gait present and Unable to assess gait Motor exam (neuro): 5/5 motor strength present throughout Other: Patient is functional quadriplegic Extrem: General: normal to inspection, full ROM, no joint enlargement, no pedal edema and edema bilateral (1+) Other: Unna boots in place Objective Data Vital Signs Vital Signs: Vital Signs - 24 hr 06/06/24 12:00 06/06/24 13:58 06/06/24 14:00 Temperature 98.0 F Pulse Rate 72 78 78 Respiratory Rate 16 18 Blood Pressure 129/53 L Pulse Oximetry 95 Oxygen Delivery Oxygen Flow Rate 06/06/24 14:07 06/06/24 16:00 06/06/24 19:58 Temperature Pulse Rate 75 78 Respiratory Rate 16 Blood Pressure Pulse Oximetry 95 Oxygen Delivery Nasal Cannula Oxygen Flow Rate 1 06/06/24 19:58 06/06/24 20:00 06/06/24 20:00 Temperature Pulse Rate 76 76 Respiratory Rate 18 Blood Pressure Pulse Oximetry 95 Oxygen Delivery Nasal Cannula Oxygen Flow Rate 1 06/06/24 20:02 06/06/24 21:00 06/06/24 21:34 Temperature 98.4 F Pulse Rate 76 80 84 Respiratory Rate 18 20 Blood Pressure 149/62 H Pulse Oximetry 95 Oxygen Delivery Oxygen Flow Rate 06/07/24 00:00 06/07/24 02:04 06/07/24 02:12 Temperature Pulse Rate 70 71 68 Respiratory Rate 18 18 Blood Pressure Pulse Oximetry Oxygen Delivery Oxygen Flow Rate 06/07/24 04:00 06/07/24 05:10 06/07/24 07:51 Temperature 96.9 F L Pulse Rate 71 73 74 Respiratory Rate 18 18 Blood Pressure 151/62 H Pulse Oximetry 97 Oxygen Delivery Oxygen Flow Rate 06/07/24 07:51 Temperature Pulse Rate Respiratory Rate Blood Pressure Pulse Oximetry 95 Oxygen Delivery Nasal Cannula Oxygen Flow Rate 2 Intake/Output Intake/Output: Intake & Output 06/04/24 06/05/24 06/06/24 06/07/24 23:59 23:59 23:59 23:59 Intake Total 2260 1300 1720 390 Output Total 4050 3750 3250 1625 Balance -4430 -4190 -1530 -1235 Meds/Results Medications: Active Medications Generic Name Dose Route Start Last Admin Trade Name Freq PRN Reason Stop Dose Admin Acetaminophen 1,000 mg 06/03/24 04:56 06/05/24 05:05 Acetaminophen 500 Mg Tablet PO 1,000 mg Q6H PRN Administration pain 1-3 Albuterol/Ipratropium 3 ml 06/03/24 06:00 06/07/24 07:48 Ipratropium 0.5 Mg/Albuterol Sulfate 2.5 Mg Ampul.Neb 3 Ml INHALATION 3 ml Q6HRT KATHARINE Administration Apixaban 5 mg 06/03/24 09:00 06/07/24 09:45 Apixaban 5 Mg Tablet PO 5 mg Q12HR KATHARINE Administration Calcium Carbonate 500 mg 06/03/24 05:41 Calcium Carbonate (Tums) 500 Mg (200 Mg Elemental) BY MOUTH TID PRN Indigestion Dextrose 12.5 gm 06/04/24 15:41 Dextrose 50% 25 Gm/50 Ml Syringe IV PUSH PRN PRN Hypoglycemia Protocol Escitalopram Oxalate 10 mg 06/03/24 21:00 06/06/24 21:35 Escitalopram Oxalate 10 Mg Tablet PO 10 mg QHS KATHARINE Administration Ferrous Sulfate 325 mg 06/03/24 12:00 06/06/24 18:42 Ferrous Sulfate [address] BY MOUTH 325 mg 1200,1700 KATHARINE Administration Flecainide Acetate 50 mg 06/03/24 09:00 06/07/24 09:45 Flecainide Acetate 50 Mg Tablet PO 50 mg Q12HR KATHARINE Administration Furosemide 40 mg 06/03/24 09:00 06/07/24 09:45 Furosemide Inj 40 Mg/4 Ml Vial IV PUSH 40 mg Q12HR KATHARINE Administration Glucagon 1 mg 06/04/24 15:41 Glucagon For Inj 1 Mg Vial IM PRN PRN Hypoglycemia Protocol Glucose 15 gm 06/04/24 15:41 Glucose Oral Gel 15 Gm Of Glucse In 37.5 Gm Tube PO PRN PRN Hypoglycemia Protocol Guaifenesin 600 mg 06/03/24 21:00 06/07/24 09:45 Guaifenesin 12 Hr 600 Mg Tabcr PO 600 mg Q12HR KATHARINE Administration Hyoscyamine 0.125 mg 06/03/24 04:56 Hyoscyamine Sulfate 0.125 Mg Tablet PO BID PRN cramping Cefepime HCl 2 gm in 50 mls @ 100 mls/hr 06/03/24 15:00 06/07/24 03:30 Maxipime 2 Gm/Ns 50 Ml IVPB Infused Q12H KATHARINE Infusion Dextrose 1,000 mls @ 100 mls/hr 06/04/24 15:41 Dextrose 5% 1,000 Ml IVPB PRN PRN Hypoglycemia Protocol Insulin Aspart 10 units 06/03/24 09:00 06/07/24 09:46 Insulin Aspart (*Bkc) 100 Units/Ml SUB-Q 10 units TID KATHARINE Administration Insulin Glargine 22 units 06/03/24 18:00 06/06/24 18:42 Insulin Glargine (*Bkc) 100 Units/Ml SUB-Q 22 units QPM KATHARINE Administration Levothyroxine Sodium 150 mcg 06/06/24 06:30 06/06/24 05:39 Levothyroxine Sodium 150 Mcg Tablet PO 150 mcg Ramirez@0630 KATHARINE Administration Levothyroxine Sodium 75 mcg 06/04/24 06:30 06/07/24 05:06 Levothyroxine Sodium 75 Mcg Tablet PO 75 mcg [id number]@0630 [facility] Administration Miconazole Nitrate 1 applic 06/03/24 09:00 06/07/24 09:45 Miconazole Nitrate 2% Cream 30 Gm Tube TOPICAL 1 applic BID KATHARINE Administration Nitroglycerin 0.4 mg 06/03/24 04:56 Nitroglycerin Sl 0.4 Mg Tablet SUBLINGUAL PRN PRN Chest Pain Pantoprazole Sodium 40 mg 06/03/24 09:00 06/07/24 09:45 Pantoprazole 40 Mg Tablet PO 40 mg DAILY KATHARINE Administration Rosuvastatin Calcium 10 mg 06/03/24 21:00 06/06/24 21:35 Rosuvastatin 10 Mg Tablet PO 10 mg HS KATHARINE Administration Saccharomyces Boulardii 250 mg 06/03/24 09:00 06/07/24 09:45 Saccharomyces Boulardii 250 Mg Capsule PO 250 mg BID KATHARINE Administration Silver Sulfadiazine 1 applic 06/03/24 09:00 06/07/24 09:45 Silver Sulfadiazine 1% Cr 400 Gm Jar (*Bkc) TOPICAL 1 applic DAILY KATHARINE Administration Triamcinolone Acetonide 1 applic 06/03/24 04:56 Triamcinolone Acet 0.1% Cream 15 Gm Tube TOPICAL BID PRN rash Radiology Results: ITS Impressions Chest X-Ray 06/02/24 21:16 Impression: 1: Cardiomegaly with mild interstitial edema. Labs Labs: Laboratory Results - last 24 hr 06/06/24 06/06/24 06/06/24 12:15 14:06 17:03 WBC 16.8 H RBC 4.64 Hgb 12.5 Hct 39.9 MCV 86.0 MCH 26.9 MCHC 31.3 L RDW 13.8 Plt Count 428 H MPV 10.5 H Sodium 133 L Potassium 3.2 L Chloride 102 Carbon Dioxide 24 Anion Gap 7 BUN 15 Creatinine 0.65 L Estim Creat Clear Calc Not Reportable Estimated GFR > 60 Glucose 216 H POC Capillary Glucose 174 H 142 H Calcium 9.4 NT-Pro-B Natriuret Pep 383 H 06/06/24 06/07/24 06/07/24 20:47 06:41 08:02 WBC 14.1 H RBC 4.79 Hgb 12.8 Hct 40.7 MCV 85.0 MCH 26.7 MCHC 31.4 L RDW 13.6 Plt Count 388 H MPV 10.4 Sodium 138 Potassium 3.3 L Chloride 104 Carbon Dioxide 26 Anion Gap 8 BUN 12 Creatinine 0.62 L Estim Creat Clear Calc Not Reportable Estimated GFR > 60 Glucose 174 H POC Capillary Glucose 262 H 173 H Calcium 9.9 NT-Pro-B Natriuret Pep Quality VTE Prophylaxis VTE prophylaxis: pharmacologic ordered
--- NOTE | 2024-06-07 10:46 | PCOTNOTE ---
Per previous notes, [facility] and is dependent for all ADLs and uses a razia lift for transfers. Pt does not have skilled acute OT needs at this time and the plan is for pt to return to her NH at d/c. Will d/c OT orders.
[2024-06-07 11:15] LABS: Glucose Point of Care 159 mg/dl (65-105)
[2024-06-07] MEDS: FERROUS SULFATE 325 MG TABLET DR BY MOUTH ×2 (13:07→16:51)
[2024-06-07] MEDS: ONDANSETRON INJ 4 MG/2 ML VIAL IV PUSH ×2 (14:32→21:33)
[2024-06-07] MEDS: levoFLOXacin 750 MG TABLET PO (16:48)
[2024-06-07] MEDS: INSULIN GLARGINE (*BKC) 100 UNITS/ML 22 UNITS SUB-Q (16:49)
[2024-06-07 16:58] LABS: Glucose Point of Care 131 mg/dl (65-105)
[2024-06-07 17:23] LABS: NT Pro B Type Natriuretic Pept 437 pg/mL (19.9-100)
[2024-06-07] MEDS: ROSUVASTATIN 10 MG TABLET PO (21:08)
[2024-06-07] MEDS: ESCITALOPRAM OXALATE 10 MG TABLET PO (21:09)
[2024-06-07 22:13] LABS: Glucose Point of Care 150 mg/dl (65-105)
[2024-06-08] VITALS (13 sets, daily range): BP systolic 122–126; BP diastolic 49–53; PULSE 69–82; RESP 17–20; TEMP 36.3–36.4; O2SAT 95–98
[2024-06-08] MEDS: IPRATROPIUM 0.5 MG/ALBUTEROL SULFATE 2.5 MG AMPUL.NEB 3 ML INHALATION ×3 (01:32→14:27)
[2024-06-08] MEDS: LEVOTHYROXINE SODIUM 75 MCG TABLET PO (06:22)
[2024-06-08 08:23] LABS: Glucose Point of Care 155 mg/dl (65-105)
--- NOTE | 2024-06-08 08:34 | P.CONUR_ITS ---
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 The catheter was changed monthly in our office. She is due for a catheter change later in the week. We are consulted a 2 undertake catheter changed while she is hospitalized for other reasons. Review of Systems 2 Review of Systems: All systems reviewed & are unremarkable except as noted in HPI and below PMFSH Past Medical History Medical History Chronic anticoagulation Paroxysmal atrial fibrillation Obstructive sleep apnea Noncompliant with CPAP. Transient ischemic attack Gastroesophageal reflux disease Familial spastic paraplegia Glaucoma History of pulmonary embolism Multiple sclerosis Suprapubic catheter in place. 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 History of suprapubic catheter History of hysterectomy Family History Family History Father Spastic paralysis Mother Breast cancer Social History Social History Social History: Surrogate medical decision maker: Ange Reyes or Nancy John, daughters. Code status: Full code. Smoking status: Never smoker Second hand tobacco smoke exposure: No Alcohol intake: never Substance use: never Substance use type: does not use Do You Feel Safe in your Home?: Yes Lack of Transportation: No Lack of Food: Never True Current Housing: I Have Housing Concerned About Future Housing: No Difficulty Paying Gas/Electric Bills: No Difficulty Paying for Meds: No Currently Unemployed: No Education: High School Diploma/GED Difficulty w/ Childcare or Family Care: No Living arrangements: [facility] Additional living arrangements comments: Kourtney Leiva Has 3 daughters. 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 Spiritual care concerns: No Meds Home Medications and Allergies Home Medications ?Medication ?Instructions ?Recorded ?Confirmed ?Type apixaban 5 mg tablet (Eliquis) 5 mg PO BID 03/11/22 06/03/24 History cranberry extract 425 mg capsule 425 mg PO DAILY 03/11/22 06/03/24 History dorzolamide 2 % eye drops 2 drp EACH EYE TID 03/11/22 06/03/24 History flecainide 50 mg tablet 50 mg PO BID 03/11/22 06/03/24 History levothyroxine 75 mcg tablet 75 mcg PO DAILY 03/11/22 06/03/24 History nitroglycerin 0.4 mg sublingual 0.4 mg sublingual PRN PRN Chest 03/11/22 06/03/24 History tablet Pain rosuvastatin 10 mg tablet 10 mg PO HS 03/11/22 06/03/24 History arginine-vitamin C-vitamin E oral 1 g PO BID 10/28/22 06/03/24 History 4.5 gram-156 mg/9.2 gram powder pkt (Arginaid) escitalopram oxalate 10 mg tablet 10 mg PO QHS 10/28/22 06/03/24 History furosemide 40 mg tablet 40 mg PO DAILY #30 tabs 11/01/22 06/03/24 Rx acetaminophen 500 mg capsule 1,000 mg PO Q6H PRN pain 11/03/22 06/03/24 History bromfenac 0.09 % eye drops 1 drp RIGHT EYE HS 11/03/22 06/03/24 History melatonin 5 mg tablet 5 mg PO HS #30 tabs 11/06/22 06/03/24 Rx Antacid (calcium carbonate) 500 mg PO TID PRN Indigestion 05/11/23 06/03/24 History Saccharomyces boulardii 250 mg 250 mg PO BID 05/11/23 06/03/24 History capsule (Florastor) acetic acid 0.25 % irrigation 30 ml irrigation EVERY OTHER DAY 05/11/23 06/03/24 History solution hyoscyamine sulfate 0.125 mg tablet 0.125 mg PO BID PRN cramping 05/11/23 06/03/24 History nystatin 100,000 unit/gram topical 1 applic topical BID 05/11/23 06/03/24 History cream ciclopirox 0.77 % topical gel 1 applic topical HS 11/13/23 06/03/24 History pantoprazole 40 mg tablet,delayed 40 mg PO DAILY 11/13/23 06/03/24 History release albuterol sulfate 90 mcg/actuation 2 puff inhalation PRN asthma 05/19/24 06/03/24 History aerosol inhaler ferrous sulfate 325 mg (65 mg 325 mg PO BID 05/19/24 06/03/24 History iron) tablet (Kassie-Time) insulin glargine 100 unit/mL (3 22 unit subcut QPM 05/19/24 06/03/24 History mL) subcutaneous pen (Lantus Solostar U-100 Insulin) insulin glargine 100 unit/mL 25 unit subcut DAILY 05/19/24 06/03/24 History subcutaneous solution (Lantus U-100 Insulin) insulin lispro 10 unit subcut TID 05/19/24 06/03/24 History insulin lispro 100 unit/mL 1 sliding scale dose subcut TID 05/19/24 06/03/24 History subcutaneous pen (Humalog KwikPen (U-100) Insulin) nystatin 100,000 unit/mL oral 5 ml PO QID 05/19/24 06/03/24 History suspension triamcinolone acetonide 0.1 % 1 applic topical BID PRN rash 05/19/24 06/03/24 History topical cream ketoconazole 2 % topical cream 1 applic topical BID 05/20/24 06/03/24 History levothyroxine 150 mcg tablet 150 mcg PO .friday05/20/24 06/03/24 History loratadine 10 mg tablet 10 mg PO QHS #20 tabs 05/28/24 06/03/24 Rx ipratropium 0.5 mg-albuterol 3 mg 3 ml inhalation TID 06/03/24 06/03/24 History (2.5 mg base)/3 mL nebulization soln levothyroxine 75 mcg tablet 150 mcg PO DAILY 06/03/24 06/03/24 History silver sulfadiazine 1 % topical 1 applic topical DAILY 06/03/24 06/03/24 History cream Allergies Allergy/AdvReac Type Severity Reaction Status Date / Time black pepper Allergy Unknown Verified 11/18/23 11:20 diltiazem Allergy Unknown Verified 11/18/23 11:20 donepezil Allergy Unknown Verified 11/18/23 11:20 fluticasone Allergy Unknown Verified 11/18/23 11:20 metformin Allergy Unknown Verified 11/18/23 11:20 Vital Signs Vital Signs - 24 hr 06/07/24 12:00 06/07/24 14:00 06/07/24 16:00 Temperature 98.2 F Pulse Rate 80 83 84 Respiratory Rate 20 Blood Pressure 139/58 L Pulse Oximetry 96 Oxygen Delivery Oxygen Flow Rate Fraction of Inspired Oxygen 06/07/24 20:00 06/07/24 20:00 06/07/24 21:00 Temperature Pulse Rate 85 84 84 Respiratory Rate 18 18 Blood Pressure Pulse Oximetry 96 Oxygen Delivery Nasal Cannula Oxygen Flow Rate 1 Fraction of Inspired Oxygen 24 06/07/24 21:08 06/07/24 21:10 06/07/24 21:15 Temperature Pulse Rate 85 87 Respiratory Rate 18 Blood Pressure Pulse Oximetry 96 Oxygen Delivery Nasal Cannula Oxygen Flow Rate 1 Fraction of Inspired Oxygen 06/07/24 21:15 06/08/24 00:00 06/08/24 01:35 Temperature 97.7 F Pulse Rate 85 82 79 Respiratory Rate 18 18 Blood Pressure 148/72 H Pulse Oximetry 96 Oxygen Delivery Oxygen Flow Rate Fraction of Inspired Oxygen 06/08/24 01:45 06/08/24 04:00 06/08/24 05:20 Temperature 97.4 F L Pulse Rate 79 77 75 Respiratory Rate 17 18 Blood Pressure 126/53 L Pulse Oximetry 98 Oxygen Delivery Oxygen Flow Rate Fraction of Inspired Oxygen 06/08/24 07:26 06/08/24 07:26 06/08/24 07:34 Temperature Pulse Rate 70 69 Respiratory Rate 18 18 Blood Pressure Pulse Oximetry 95 Oxygen Delivery Nasal Cannula Oxygen Flow Rate 1 Fraction of Inspired Oxygen Exam 2 Const: General: no acute distress Resp: Effort & Inspection: normal respiratory effort GI: Inspection: non-distended GI Palp: No abdominal tenderness and No Guarding due to palpation present (GI) Auscultation: normal bowel sounds Urinary Catheter: Urinary Catheter: patent and draining and urine clear Results Labs 06/07/24 06:41 06/07/24 06:41
[2024-06-08] MEDS: FLECAINIDE ACETATE 50 MG TABLET PO (08:56)
[2024-06-08] MEDS: APIXABAN 5 MG TABLET PO (08:56)
[2024-06-08] MEDS: guaiFENesin 12 HR 600 MG TABCR PO (08:56)
[2024-06-08] MEDS: FUROSEMIDE INJ 40 MG/4 ML VIAL IV PUSH (08:56)
[2024-06-08] MEDS: SILVER SULFADIAZINE 1% CR 400 GM JAR (*BKC) 1 APPLIC TOPICAL (08:57)
[2024-06-08] MEDS: PANTOPRAZOLE 40 MG TABLET PO (08:57)
[2024-06-08] MEDS: INSULIN ASPART (*BKC) 100 UNITS/ML 10 UNITS SUB-Q ×2 (08:57→12:00)
[2024-06-08] MEDS: MICONAZOLE NITRATE 2% CREAM 30 GM TUBE 1 APPLIC TOPICAL (08:57)
[2024-06-08] MEDS: SACCHAROMYCES BOULARDII 250 MG CAPSULE PO (08:57)
--- NOTE | 2024-06-08 10:38 | PM.DS ---
DS: Admitting Diagnosis Discharge Date 06/08 Admitting Diagnosis sob, cough DS: Discharge Diagnosis Discharge Diagnosis (1) Nosocomial pneumonia: Code(s): J18.9 - Pneumonia, unspecified organism; Y95 - Nosocomial condition Status: Acute (2) Hypoxic respiratory failure: Code(s): J96.91 - Respiratory failure, unspecified with hypoxia Status: Acute (3) Congestive heart failure: Code(s): I50.9 - Heart failure, unspecified Status: Acute (4) Paroxysmal atrial fibrillation: Code(s): I48.0 - Paroxysmal atrial fibrillation Status: Acute (5) GERD (gastroesophageal reflux disease): Code(s): K21.9 - Gastro-esophageal reflux disease without esophagitis Status: Acute (6) Ileostomy in place: Code(s): Z93.2 - Ileostomy status Status: Acute (7) Chronic indwelling Schmitt catheter: Code(s): Z97.8 - Presence of other specified devices Status: Acute (8) CATY (obstructive sleep apnea): Code(s): G47.33 - Obstructive sleep apnea (adult) (pediatric) Status: Acute (9) Type 2 diabetes mellitus: Qualifiers: Diabetes mellitus complication status: without complication Diabetes mellitus fdc insulin use: with terminal superintendent use Qualified Code(s): E11.9 - Type 2 diabetes mellitus without complications; 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 Code(s): E11.9 - Type 2 diabetes mellitus without complications Status: Acute DS: Summary Hospital Course Hospital Course: 83-year-old female with past medical history significant for hypoxic respiratory failure on home O2 2 L by nasal cannula, after recent admission and discharge from [facility], paroxysmal atrial fibrillation, functional quadriplegic, Phyllis lift, ileostomy in place, rate controlled anticoagulated, insulin-dependent diabetes mellitus, hypothyroidism, patient resides at [facility] was brought to the ED for evaluation due to productive cough, shortness of breath, wheezing. Patient has been admitted for further evaluation management and treatment. Chest Xray: Cardiomegaly with mild interstitial edema. She was started on IV antibiotics; initially zithromax and vanc, then changed to cefepime 2 gm q12h. downgraded to levoquin and has one more dose left- due tomorrow around 1500 to complete the course. She improved her breathing and cough. Urology saw her today, 06/08 and her chronic Suprapubic catheter changed at bedside without difficulty per DR Reddy. She had an episode of vomiting last night but improved today and tolerated foods well without n/v. Status at Discharge Functional status at discharge: wheelchair bound Overall status at discharge: patient is progressing back to baseline Time Spent with Patient Time attestation: Total time spent providing and/or coordinating discharge services: Time spent: Greater than 30 minutes Exam Const: General: comfortable, no acute distress, well developed, alert, awake, ill appearing chronically and average body habitus Nutritional Appearance: average body habitus Orientation/consciousness: patient oriented x3 Other: Nasal cannula on HENMT: Head: normal to inspection, normocephalic and atraumatic Ears: hearing grossly normal bilaterally Face/Nose/Sinus: normal facial exam Face and sinus: normal facial exam Eyes: General: appearance normal, both eyes and all related structures Pupils: Equal, round and reactive pupils present EOM: EOMs intact bilaterally Neck: Neck: full ROM, no lymphadenopathy and no JVD Thyroid: thyroid normal Lymphatic: no lymphadenopathy noted Resp: Effort & Inspection: normal respiratory effort and able to speak in complete sentences Auscultation: clear to auscultation bilaterally, crackles, rales and wheezes Cardio: Jugular venous distension: no JVD Rate: regular rate Rhythm: regular rhythm Heart sounds: S1 normal heart sound present and S2 normal heart sound present GI: Inspection: other (Ileostomy in place) : General: Yes deferred Skin: Rashes: no rashes Wounds: no wounds Neuro: General: patient oriented x3, CN's II-XI intact bilaterally and Unable to assess gait Cranial nerves: Yes CN's II-XII intact bilaterally and Yes Equal, round and reactive pupils present Cognition (Neuro): normal cognition Speech: normal speech Gait exam (Neuro): Normal gait present and Unable to assess gait Motor exam (neuro): 5/5 motor strength present throughout Other: Patient is functional quadriplegic Extrem: General: normal to inspection, full ROM, no joint enlargement, no pedal edema and edema bilateral (1+) Other: Unna boots in place DS: Data Data Completed and Pending Labs on day of discharge: Labs from last 24 hours 06/08/24 06/07/24 06/07/24 08:17 21:16 16:54 POC Capillary Glucose 155 H 150 H 131 H NT-Pro-B Natriuret Pep 06/07/24 06/07/24 11:12 06:38 POC Capillary Glucose 159 H NT-Pro-B Natriuret Pep 437 H Discharge Plan Discharge Attending physician on discharge: Irene Shah Consulting providers: Hussain Ray Discharging Clinician: Dior Arellano Patient Disposition: SD Fdc/Asst Living Activity: may shower Diet: diabetic Patient Instructions: Antibiotic Form, Heart Failure (GEN) Patient Language: [place] Stand Alone Forms: General Discharge Information Follow-up/Referrals: UNKNOWN,DOCTOR [Primary Care Provider] - 2 Weeks Discharge Medications: New levofloxacin 750 mg tablet 750 mg PO DAILY 1 Days Qty: 1 0RF Rx Instructions: needs one more dose 06/09 at 1500 Continued escitalopram oxalate 10 mg tablet 10 mg PO QHS Arginaid 4.5 gram-156 mg/9.2 gram Powder In Packet 1 g PO BID Rx Instructions: 1 packet bid furosemide 40 mg Tablet 40 mg PO DAILY Qty: 30 0RF pantoprazole 40 mg tablet,delayed release (DR/EC) 40 mg PO DAILY ciclopirox 0.77 % gel 1 applic TOPICAL HS Rx Instructions: Apply to affected fingernails albuterol sulfate 90 mcg/actuation HFA aerosol inhaler 2 puff INHALATION PRN ferrous sulfate [Kassie-Time] 325 mg (65 mg iron) tablet 325 mg PO BID insulin lispro [Humalog KwikPen Insulin] 100 unit/mL insulin pen 1 sliding scale dose SUBCUT TID triamcinolone acetonide 0.1 % cream 1 applic TOPICAL BID PRN (Reason: rash) nystatin 100,000 unit/mL suspension 5 ml PO QID insulin lispro [Humalog KwikPen Insulin] 10 unit subcut TID insulin glargine [Lantus Solostar U-100 Insulin] 100 unit/mL (3 mL) insulin pen 22 unit subcut QPM insulin glargine [Lantus U-100 Insulin] 100 unit/mL Solution 25 unit subcut DAILY levothyroxine 150 mcg tablet 150 mcg PO .friday ketoconazole 2 % cream 1 applic TOPICAL BID loratadine 10 mg Tablet 10 mg PO QHS Qty: 20 0RF ipratropium-albuterol 0.5 mg-3 mg(2.5 mg base)/3 mL solution for nebulization 3 ml INHALATION TID silver sulfadiazine 1 % cream 1 applic TOPICAL DAILY Rx Instructions: apply to coccyx levothyroxine 75 mcg tablet 150 mcg PO DAILY Patient Comments: takes M-Fri Rx Instructions: takes on Friday cranberry extract 425 mg Capsule 425 mg PO DAILY Rx Instructions: administer with a meal flecainide 50 mg tablet 50 mg PO BID dorzolamide 2 % drops 2 drp EACH EYE TID Rx Instructions: daily, noon and HS Eliquis 5 mg tablet 5 mg PO BID rosuvastatin 10 mg tablet 10 mg PO HS nitroglycerin 0.4 mg tablet, sublingual 0.4 mg sublingual PRN PRN (Reason: Chest Pain) Rx Instructions: 1 tab po PRN q 5mins x 3 doses levothyroxine 75 mcg tablet 75 mcg PO DAILY Rx Instructions: takes Friday-Friday bromfenac 0.09 % drops 1 drp RIGHT EYE HS acetaminophen 500 mg capsule 1,000 mg PO Q6H PRN (Reason: pain) melatonin 5 mg Tablet 5 mg PO HS Qty: 30 0RF Antacid (calcium carbonate) 500 mg PO TID PRN (Reason: Indigestion) hyoscyamine sulfate 0.125 mg Tablet 0.125 mg PO BID PRN (Reason: cramping) nystatin 100,000 unit/gram cream 1 applic TOPICAL BID Rx Instructions: mix with zinc oxide cream and apply to groin and brittany area BID and PRN acetic acid 0.25 % Solution 30 ml irrigation EVERY OTHER DAY Patient Comments: 30 ml irrigation every shift to flush suprapubic catheter every day Rx Instructions: Flush suprapubic catheter Fri, Fri, Friday Saccharomyces boulardii [Florastor] 250 mg Capsule 250 mg PO BID Date of admission: 06/03/24 00:43 Primary Care Provider: UNKNOWN,DOCTOR Admitting Provider: Magdi De Souza V. Attending physician on admission: Magdi De Souza V. Condition: Stable Quality VTE Prophylaxis VTE prophylaxis: pharmacologic ordered Hospitalist MIPS Heart Failure (Exclusion) Patient has history of Heart Transplant or Left Ventricular Assistive Device?: No IF YES, STOP HERE Heart Failure (Qualifier) Patient has current or prior documentation of LVEF less than or equal to 40%, or mod/servere depressed LVSF?: No IF NO, STOP HERE
[2024-06-08 11:43] LABS: Glucose Point of Care 200 mg/dl (65-105)
[2024-06-08 12:39] LABS: SARS-CoV-2 RNA PCR Negative (Negative)
[2024-06-08] MEDS: FERROUS SULFATE 325 MG TABLET DR BY MOUTH (13:29)
[2024-06-08] MEDS: levoFLOXacin 750 MG TABLET PO (14:09)
[2024-06-08 16:21] LABS: Glucose Point of Care 194 mg/dl (65-105)
== END 2024-06-08 16:59 | DRG 193 ==
LOC: ANHED 06-03 01:11 → ANH3MEDSUR 06-03 01:20
PROVIDERS: Emergency Medicine; Admitting Provider Internal Medicine; Emergency Provider Physician Assistant; Visit Provider Nurse Practitioner
DX: J18.9 Pneumonia, unspecified organism (principal); I50.33 Acute on chronic diastolic (congestive) heart failure; G11.4 Hereditary spastic paraplegia; J44.0 Chronic obstructive pulmonary disease with (acute) lower respiratory infection; J96.11 Chronic respiratory failure with hypoxia; I11.0 Hypertensive heart disease with heart failure; I48.0 Paroxysmal atrial fibrillation; I25.10 Atherosclerotic heart disease of native coronary artery without angina pectoris; E03.9 Hypothyroidism, unspecified; E21.3 Hyperparathyroidism, unspecified; E11.9 Type 2 diabetes mellitus without complications; K21.9 Gastro-esophageal reflux disease without esophagitis; N31.9 Neuromuscular dysfunction of bladder, unspecified; G35 Multiple sclerosis; G47.33 Obstructive sleep apnea (adult) (pediatric); H40.9 Unspecified glaucoma; Y95 Nosocomial condition; Z20.822 Contact with and (suspected) exposure to COVID-19; Z11.52 Encounter for screening for COVID-19; Z79.01 Long term (current) use of anticoagulants; Z93.3 Colostomy status; Z93.50 Unspecified cystostomy status; Z99.81 Dependence on supplemental oxygen; Z79.4 Long term (current) use of insulin; Z86.711 Personal history of pulmonary embolism; Z85.3 Personal history of malignant neoplasm of breast; Z86.73 Personal history of transient ischemic attack (TIA), and cerebral infarction without residual deficits; Z74.01 Bed confinement status
CPT/HCPCS: 36415; 71045; 80048; 80053; 81001; 82948; 83690; 83880; 84484; 85025; 85027; 85610; 85730; 87040; 87086; 87635; 87637; 87641; 93005; 94640; 96374; 99285; A9270; J0456; J0692; J0696; J1815; J1940; J2405; J3370

== ENCOUNTER 2024-08-19 05:47 | Inpatient (IN) | payer MEDICARE, MEDICAID, SELFPAY ==
[2024-08-19] VITALS (23 sets, daily range): BP systolic 113–151; BP diastolic 40–64; PULSE 72–129; RESP 16–26; TEMP 36.7–37; O2SAT 91–100; BMI 30.4
--- NOTE | ~2024-08-19 | XR_ITS ---
Portable chest x-ray Comparison: 06/07/2024 Clinical History: Dyspnea Findings: Probable focal hazy opacity in the right upper lobe. Mild central congestive changes are p resent. Cardiomediastinal silhouette is stable. Bones and soft tissues are unremarkable. Impression: Probable focal hazy opacity right upper lobe. Focal pneumonia is a consideration. Mild central congestive changes. Stable mild cardiomegaly. Reviewed, dictated and finalized at location M. Impression: Probable focal hazy opacity right upper lobe. Focal pneumonia is a consideratio n. Mild central congestive changes. Stable mild cardiomegaly.
--- NOTE | ~2024-08-19 | XR_ITS ---
MODIFIED ESOPHAGRAM HISTORY: Assess for aspiration TECHNIQUE: Modified barium esophagram was performed on 08/19/2024. I administered fluoroscopy and perfo rmed the exam with speech pathologist. Patient was seated for lateral fluoroscopic imaging for inges tion of thin liquids, pudding, solids and quantified amounts, followed by thin liquids in uncontrolle d amounts. This was recorded on tape. A single fluoroscopic spot image was also recorded. The DAP for this procedure was 1.314 Gycm2. The amount of fluoroscopy time used during this procedure was 1.5 mi nutes. FINDINGS: Oral stage: Adequate function. Pharyngeal stage: Reduced tongue base retraction. There is laryngeal penetration without aspiration. Cervical/esophageal stage: Adequate function. IMPRESSION: Mild pharyngeal dysphagia with laryngeal penetration without aspiration. Please correlat e with speech pathologist findings and specific feeding recommendations. Reviewed, dictated and finalized at location A. IMPRESSION: Mild pharyngeal dysphagia with laryngeal penetration without aspira tion. Please correlate with speech pathologist findings and specific feeding r ecommendations.
--- NOTE | ~2024-08-19 | XR_ITS ---
EXAMINATION: XR chest 1V portable DATE: 08/27/2024 12:53 INDICATION: Increased oxygen requirements TECHNIQUE: frontal view of the chest was obtained. COMPARISON: Chest radiograph dated 08/22/2024 FINDINGS: Mild cardiomegaly with pulmonary vascular congestion. Interval improvement in the prior patchy airspa ce opacity in the right upper lung zone. Unchanged consolidation at the left cardiophrenic angle and bandlike discoid atelectasis at the medial right lung base. No pleural effusion or pneumothorax. Dens e mitral annular calcific lesion. Surgical clips at the left breast. IMPRESSION: 1. Resolution of prior patchy airspace opacity at the right upper lung zone with the relatively rapid improvement favoring pulmonary edema over pneumonia. 2. Unchanged discoid atelectasis at the right lung base with larger region of consolidation at the me dial left lung base which could represent additional atelectasis or pneumonia. 3. Cardiomegaly. Reviewed, dictated and finalized at location B. IMPRESSION: 1. Resolution of prior patchy airspace opacity at the right upper lung zone wit h the relatively rapid improvement favoring pulmonary edema over pneumonia. 2. Unchanged discoid atelectasis at the right lung base with larger region of c onsolidation at the medial left lung base which could represent additional atel ectasis or pneumonia. 3. Cardiomegaly.
--- NOTE | ~2024-08-19 | XR_ITS ---
XR chest 1V portable Ordering provider: Angelito Yi MD History: 83 years Female with . increased sob . Comparison: August 19 2024 FINDINGS: MEDIASTINUM: The cardiac silhouette is not enlarged. LUNGS: No pneumothorax. No effusion. Opacification in the right upper lobe and left lower lobe is not ed suggestive of pneumonia. OTHER: No free air under the diaphragm. Degenerative changes of the spine. IMPRESSION: Right upper lobe and left lower lobe pneumonia. Reviewed, dictated and finalized at location A.
--- NOTE | ~2024-08-19 | CT_ITS ---
EXAMINATION: CT diagnostic chest wo con DATE: 08/24/2024 14:26 INDICATION: Resp failure TECHNIQUE: Computed tomography (CT) of the chest was performed without intravenous contrast. Addition al 3D reconstructions utilizing coronal maximum intensity projection (MIP) were performed. Automated exposure control and iterative reconstruction technique were employed. The dose-length product was 39 7.29 mGy-cm. COMPARISON: None FINDINGS: Small left and very small right pleural effusions. Groundglass opacity and more dense consolidation i n the basilar segments of the left lower lobe. Additional infrahilar consolidation in the right lower lobe. There is a region of crazy paving opacity with groundglass opacity and surrounding septal line thickening in the anterior segment of the right upper lobe. Additional mild groundglass opacities an d some smooth septal line thickening at the apices of lungs. Megaly. Atherosclerotic coronary artery calcific location. Aortic valve and mitral annular calcific location. No pericardial effusion. Thorac ic aorta is normal in caliber. Enlargement of the central pulmonary arteries consistent with pulmonar y arterial hypertension. Calcified right hilar and mediastinal lymph nodes along with multiple tiny s plenic calcifications consistent with old granulomatous disease. No pathologically enlarged thoracic lymphadenopathy. Cholecystectomy clips the gallbladder fossa. Mil d thoracic spondylosis with bridging osteophytes at multiple levels consistent with diffuse idiopathi c skeletal hyperostosis (DISH). IMPRESSION: 1. Consolidation regions of crazy paving pattern in the right upper and bilateral lower lobes concern ing for pneumonia with differential including pulmonary edema and pulmonary infarct. 2. Small left and very small right pleural effusions. 2. Cardiomegaly. Reviewed, dictated and finalized at location B. IMPRESSION: 1. Consolidation regions of crazy paving pattern in the right upper and bilater al lower lobes concerning for pneumonia with differential including pulmonary e rose and pulmonary infarct. 2. Small left and very small right pleural effusions. 2. Cardiomegaly.
--- NOTE | 2024-08-19 05:59 | ECG_ITS ---
Test Date: 2024-08-19 06:02:49 Measurements Intervals [place] Rate: 125 P: 0 NM: 0 QRS: -63 QRSD: 111 T: 100 QT: 343 QTc: 495 Interpretive Statements ATRIAL FIBRILLATION WITH RAPID VENTRICULAR RESPONSE LEFT ANTERIOR FASCICULAR BLOCK ST-T WAVE ABNORMALITY IN HIGH LATERAL LEADS- CONSIDER ISCHEMIA BASELINE ARTIFACT- I, AVR, AVL ABNORMAL ECG Compared to ECG 06/02/2024 23:48:07 Sinus rhythm no longer present ST-T WAVE ABNORMALITY NOW PRESENT Electronically Signed On 08-19-2024 07:51:15 CDT by Emmanuel Tamez D.O.
--- NOTE | 2024-08-19 06:01 | ED.SOB ---
HPI - SOB/Dyspnea General Chief Complaint: Shortness of Breath/Dyspnea Stated Complaint: DIFFICULTY IN BREATHING Time Seen by Provider: 08/19/24 05:51 History of Present Illness HPI Narrative: 83-year-old female with a complex past medical history including congestive heart failure, COPD, atrial fibrillation on Eliquis, functional quadriparesis with a suprapubic catheter and ileostomy tube. She is on chronic oxygen 2 L nasal cannula. Report from correction staff was that patient was saturating in the low 80s even on her home oxygen dose. They administered a breathing treatment and ambulance arrived. Patient's oxygen did improve after the breathing treatment to the low 90s but she was very tachypneic and sounded like she was having coarse respirations and gurgling respirations. On initial presentation patient is in moderate to severe respiratory distress with coarse breath sounds with evidence of edema in her legs. She was brought back in to room 10. And respiratory was called to bedside for assistance. Patient is awake, at her baseline mentation, complaining of trouble breathing and is tachypneic. Denies chest pain or chest pressure. No abdominal pain or back pain. Denies any fever chills. No cough. Related Data Home Medications ?Medication ?Instructions ?Recorded ?Confirmed ?Last Taken ?Type apixaban 5 mg tablet (Eliquis) 5 mg PO BID 03/11/22 06/03/24 05/19/24 History cranberry extract 425 mg capsule 425 mg PO DAILY 03/11/22 06/03/24 05/19/24 History dorzolamide 2 % eye drops 2 drp EACH EYE TID 03/11/22 06/03/24 05/19/24 History flecainide 50 mg tablet 50 mg PO BID 03/11/22 06/03/24 05/19/24 History levothyroxine 75 mcg tablet 75 mcg PO DAILY 03/11/22 06/03/24 05/19/24 History nitroglycerin 0.4 mg sublingual 0.4 mg sublingual PRN PRN Chest 03/11/22 06/03/24 12/09/22 19:00 History tablet Pain rosuvastatin 10 mg tablet 10 mg PO HS 03/11/22 06/03/24 05/19/24 History arginine-vitamin C-vitamin E oral 1 g PO BID 10/28/22 06/03/24 05/19/24 History 4.5 gram-156 mg/9.2 gram powder pkt (Arginaid) escitalopram oxalate 10 mg tablet 10 mg PO QHS 10/28/22 06/03/24 05/17/24 History acetaminophen 500 mg capsule 1,000 mg PO Q6H PRN pain 11/03/22 06/03/24 05/18/24 History bromfenac 0.09 % eye drops 1 drp RIGHT EYE HS 11/03/22 06/03/24 05/18/24 History Antacid (calcium carbonate) 500 mg PO TID PRN Indigestion 05/11/23 06/03/24 Unknown History Saccharomyces boulardii 250 mg 250 mg PO BID 05/11/23 06/03/24 05/19/24 History capsule (Florastor) acetic acid 0.25 % irrigation 30 ml irrigation EVERY OTHER DAY 05/11/23 06/03/24 Unknown History solution hyoscyamine sulfate 0.125 mg tablet 0.125 mg PO BID PRN cramping 05/11/23 06/03/24 Unknown History nystatin 100,000 unit/gram topical 1 applic topical BID 05/11/23 06/03/24 05/18/24 History cream ciclopirox 0.77 % topical gel 1 applic topical HS 11/13/23 06/03/24 05/18/24 History pantoprazole 40 mg tablet,delayed 40 mg PO DAILY 11/13/23 06/03/24 05/19/24 History release albuterol sulfate 90 mcg/actuation 2 puff inhalation PRN asthma 05/19/24 06/03/24 Unknown History aerosol inhaler ferrous sulfate 325 mg (65 mg 325 mg PO BID 05/19/24 06/03/24 05/19/24 History iron) tablet (Kassie-Time) insulin glargine 100 unit/mL (3 22 unit subcut QPM 05/19/24 06/03/24 05/18/24 History mL) subcutaneous pen (Lantus Solostar U-100 Insulin) insulin glargine 100 unit/mL 25 unit subcut DAILY 05/19/24 06/03/24 05/18/24 History subcutaneous solution (Lantus U-100 Insulin) insulin lispro 10 unit subcut TID 05/19/24 06/03/24 05/19/24 History insulin lispro 100 unit/mL 1 sliding scale dose subcut TID 05/19/24 06/03/24 05/19/24 History subcutaneous pen (Humalog KwikPen (U-100) Insulin) nystatin 100,000 unit/mL oral 5 ml PO QID 05/19/24 06/03/24 05/10/24 History suspension triamcinolone acetonide 0.1 % 1 applic topical BID PRN rash 05/19/24 06/03/24 03/08/24 History topical cream ketoconazole 2 % topical cream 1 applic topical BID 05/20/24 06/03/24 Unknown History levothyroxine 150 mcg tablet 150 mcg PO .friday05/20/24 06/03/24 Unknown History ipratropium 0.5 mg-albuterol 3 mg 3 ml inhalation TID 06/03/24 06/03/24 Unknown History (2.5 mg base)/3 mL nebulization soln levothyroxine 75 mcg tablet 150 mcg PO DAILY 06/03/24 06/03/24 Unknown History silver sulfadiazine 1 % topical 1 applic topical DAILY 06/03/24 06/03/24 Unknown History cream Allergies Allergy/AdvReac Type Severity Reaction Status Date / Time black pepper Allergy Unknown Verified 11/18/23 11:20 diltiazem Allergy Unknown Verified 11/18/23 11:20 donepezil Allergy Unknown Verified 11/18/23 11:20 fluticasone Allergy Unknown Verified 11/18/23 11:20 metformin Allergy Unknown Verified 11/18/23 11:20 Review of Systems Review of Systems: As reviewed above in [facility] Past Medical History Medical History Chronic anticoagulation Paroxysmal atrial fibrillation Obstructive sleep apnea Noncompliant with CPAP. Transient ischemic attack Gastroesophageal reflux disease Familial spastic paraplegia Glaucoma History of pulmonary embolism Multiple sclerosis Suprapubic catheter in place. 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 History of suprapubic catheter History of hysterectomy Family History Family History Father Spastic paralysis Mother Breast cancer Social History Social History Social History: Surrogate medical decision maker: Angejustin Reyes or Nancy John, daughters. Code status: Full code. Smoking status: Never smoker Second hand tobacco smoke exposure: No Alcohol intake: never Substance use: never Substance use type: does not use Do You Feel Safe in your Home?: Yes Lack of Transportation: No Lack of Food: Never True Current Housing: I Have Housing Concerned About Future Housing: No Difficulty Paying Gas/Electric Bills: No Difficulty Paying for Meds: No Currently Unemployed: No Education: High School Diploma/GED Difficulty w/ Childcare or Family Care: No Living arrangements: correction Additional living arrangements comments: [facility]. Has 3 daughters. 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 Spiritual care concerns: No Exam Narrative: GENERAL: Elderly and ill appearing, moderate to severe respiratory distress. HEAD: [Normocephalic, atraumatic.] EYES: [PERRLA and EOMI.] ENT: Nares clear, no rhinorrhea or epistaxis. Mucous membranes moist. NECK: Supple. CHEST: Coarse bibasilar breath sounds, no wheezing or prolonged expiratory phase. Rales throughout all lung dave. HEART: [Regular rate and rhythm]. No murmur heard. [Normal peripheral pulses.] ABDOMEN: [Soft, nondistended], [nontender], [No rigidity or guarding] ileostomy tube with green/brown output. Suprapubic catheter intact without any overlying skin changes EXTREMITIES: Normal range of motion. 2+ pitting edema SKIN: Warm, dry, no rash. NEURO: At baseline mentation, no new focal deficits PSYCH: [Normal mood and affect.] Course Vital Signs Vital signs: Vital Signs Pulse Rate 117 H 08/19/24 05:44 Respiratory Rate 16 08/19/24 05:44 Blood Pressure 113/64 08/19/24 05:44 Pulse Oximetry 92 08/19/24 05:44 Oxygen Delivery Nasal Cannula 08/19/24 05:44 Oxygen Flow Rate 4 08/19/24 05:44 Temperature 37.0 C 08/19/24 06:38 Pulse Rate 96 08/19/24 06:41 Respiratory Rate 22 H 08/19/24 06:41 Blood Pressure 113/64 08/19/24 06:41 Pulse Oximetry 99 08/19/24 06:41 Oxygen Delivery BiPAP 08/19/24 06:17 Oxygen Flow Rate 4 08/19/24 05:44 MDM - SOB/Dyspnea MDM Narrative Medical decision making narrative: 83-year-old female with complex medical history including CHF, COPD, atrial fibrillation on Eliquis, functional quadriparesis with an ileostomy and suprapubic catheter. Patient is on home oxygen 2 L at her nursing facility. She was hypoxic on EMS arrival in the mid 80s. At breathing treatment was given by nursing staff with improvement to the low 90s but patient does sound more congested and selling signs of heart failure rather than a COPD exacerbation on my assessment. There is no wheezing or prolonged expiratory phase but there is rales in most lung dave with coarse bibasilar breath sounds and tachypnea. She is tachycardic with an irregular rhythm although not significantly elevated I do not believe is the cause of her shortness of breath. She likely has an acute CHF exacerbation versus infectious process such as pneumonia. Low suspicion for COPD exacerbation versus ACS versus AFib RVR causing decompensation. Respiratory therapy was called to bedside to assist in transitioning her to a BiPAP mask with settings 12/6 and 92%. VBG was ordered as well as basic laboratory studies, troponin, EKG, chest x-ray obtained. Will assess x-ray and provide diuresis. Patient's chest x-ray was independently reviewed and does appear to have some congestion as well as a right upper lobe hazy opacity suspicious for pneumonia. Patient was given diuresis and antibiotics including azithromycin and ceftriaxone. Patient was transitioned to BiPAP and significantly improved. No longer tachycardic and no longer tachypneic. 99% on BiPAP. Patient doing well and comfortable at this time. Her workup shows an elevated BNP compared to her prior baselines, negative troponin. EKG shows atrial fibrillation but knows concerning ischemic findings. Initially had rapid ventricular response but this resolved with treating her hypoxia and placing on BiPAP, currently heart rate is in the low 90s without any rate control medications. Patient currently does have a mildly elevated white count but does not appear septic. Antibiotics were initiated. Holding off on fluid resuscitation as she is volume overloaded and has a normal heart rate and blood pressure at this time. COVID swabs are pending. I spoke to the hospitalist Dr. Gomez who accepted the patient to an IMU bed at this time. We went over patient's clinical exam, workup findings and plan of care. Family at bedside was spoken to and made aware of admit plans. Differential Diagnosis Differential diagnosis: Likely acute exacerbation of chronic obstructive airways disease, congestive heart failure, community acquired pneumonia, asthma with exacerbation and other Medical Records Attestation: I reviewed the patient's medical records. Lab Data Attestation: I reviewed the patient's lab results. 08/19/24 06:02 08/19/24 06:02 Labs: Lab Results 08/19/24 08/19/24 Range/Units 06:02 06:15 WBC 14.9 H (4.5-10.0) K/mm3 RBC 5.41 H (4.2-5.4) M/mm3 Hgb 14.1 (12.0-15.0) g/dL Hct 44.9 (37.0-47.0) % MCV 83.0 (80-100) fl MCH 26.1 (26-34) pg MCHC 31.4 L (32-36) g/dl RDW 14.6 H (11.5-14.5) % Plt Count 261 (150-375) k/mm3 MPV 10.9 H (7.4-10.4) fl Immature Gran % (Auto) 0.4 (0-0.5) % Neut % (Auto) 64.4 (45.5-73.1) % Lymph % (Auto) 16.1 L (18.3-44.2) % Taliaferro % (Auto) 15.5 H (2.6-8.5) % Eos % (Auto) 3.1 (0-4.4) % Baso % (Auto) 0.5 (0.2-1.2) % Lymph # (Auto) 2.41 (0.9-3.2) K/mm3 Tal[place]ferro # (Auto) 2.3 H (0.1-0.6) K/mm3 Eos # (Auto) 0.5 H (0-0.3) K/mm3 Baso # (Auto) 0.1 (0.0-0.1) K/mm3 Abs Immat Gran (auto) 0.06 H (0.00-0.031) K/mm3 Absolute Neuts (auto) 9.6 H (1.3-6.7) K/mm3 Absolute Nucleated RBC 0.000 (0.0-0.012) K/mm3 Nucleated RBC % 0.0 (0.0-0.2) % PT 14.3 (11.1-14.7) Seconds INR 1.1 APTT 26.3 (22.3-36.8) Seconds Expiratory Pressure 6 cmH2O Inspiratory Pressure 12 cmH2O Sodium 138 (137-145) mmol/L Potassium 3.3 L (3.4-5.0) mmol/L Chloride 103 (98-107) mmol/L Carbon Dioxide 26 (22-30) mmol/L Anion Gap 9 (4-12) mmol/L BUN 12 (7-17) mg/dL Creatinine 0.60 L (0.7-1.0) mg/dL Estim Creat Clear Calc 61 ml/min Estimated GFR > 60 (59 - ) Glucose 175 H (65-110) mg/dL Calcium 10.0 (8.4-10.2) mg/dL Magnesium 1.9 (1.6-2.3) mg/dL Total Bilirubin 0.5 (0.2-1.3) mg/dL AST 19 (14-36) U/L ALT 15 (6-35) U/L Alkaline Phosphatase 99 (38-126) U/L Troponin I < 0.012 (0.000-0.034) ng/mL NT-Pro-B Natriuret Pep 2160 H (19.9-100) pg/mL Total Protein 7.0 (6.3-8.2) g/dL Albumin 3.9 (3.5-5.1) g/dL Influenza A (RT-PCR) Pending Influenza B (RT-PCR) Pending RSV (RT-PCR) Pending SARS-CoV-2 RNA (RT-PCR) Pending ABG Data ABG results: 08/19/24 06:02 VBG pH 7.355 VBG pCO2 48.3 H VBG pO2 35.9 VBG HCO3 26.4 O2 Delivery Device Bipap O2 Liters/Min Not Reportable FiO2 100 Attestation: I personally reviewed and interpreted this ABG as follows: Interpretation: Normal pH, elevated pCO2 with chronic retention. Imaging Data Attestation: I personally reviewed and interpreted this imaging study as follows: My impression: Impressions Chest X-Ray 08/19/24 06:41 Impression: Probable focal hazy opacity right upper lobe. Focal pneumonia is a consideration. Mild central congestive changes. Stable mild cardiomegaly. ECG Data EKG #1: Attestation: I personally reviewed and interpreted this ECG as follows: ECG completion date: 08/19/24 ECG completion time: 06:02 Prior ECG tracings: available for review Interpretation: Atrial fibrillation, elevated heart rate with rapid ventricular response. No ST segment elevations, depressions or inversions. QTC interval 417, QRS 111 milliseconds. Compared to prior EKGs no significant interval change. Critical Care Time Critical Care Time Critical Care Time: Yes Total Critical Care Time: 35 Discharge Plan Discharge Clinical Impression: Acute hypoxic on chronic hypercapnic respiratory failure Pneumonia Qualifiers: Pneumonia type: due to unspecified organism Laterality: right Lung location: lower lobe of lung Qualified Code(s): J18.9 - Pneumonia, unspecified organism Acute exacerbation of CHF (congestive heart failure) Qualifiers: Heart failure type: unspecified Qualified Code(s): I50.9 - Heart failure, unspecified Patient Disposition: Still a Patient Condition: Stable Patient Language: [place] Prescriptions: No Action escitalopram oxalate 10 mg tablet 10 mg PO QHS Arginaid 4.5 gram-156 mg/9.2 gram Powder In Packet 1 g PO BID Rx Instructions: 1 packet bid furosemide 40 mg Tablet 40 mg PO DAILY Qty: 30 0RF pantoprazole 40 mg tablet,delayed release (DR/EC) 40 mg PO DAILY ciclopirox 0.77 % gel 1 applic TOPICAL HS Rx Instructions: Apply to affected fingernails albuterol sulfate 90 mcg/actuation HFA aerosol inhaler 2 puff INHALATION PRN ferrous sulfate [Kassie-Time] 325 mg (65 mg iron) tablet 325 mg PO BID insulin lispro [Humalog KwikPen Insulin] 100 unit/mL insulin pen 1 sliding scale dose SUBCUT TID triamcinolone acetonide 0.1 % cream 1 applic TOPICAL BID PRN (Reason: rash) nystatin 100,000 unit/mL suspension 5 ml PO QID insulin lispro [Humalog KwikPen Insulin] 10 unit subcut TID insulin glargine [Lantus Solostar U-100 Insulin] 100 unit/mL (3 mL) insulin pen 22 unit subcut QPM insulin glargine [Lantus U-100 Insulin] 100 unit/mL Solution 25 unit subcut DAILY levothyroxine 150 mcg tablet 150 mcg PO .friday ketoconazole 2 % cream 1 applic TOPICAL BID loratadine 10 mg Tablet 10 mg PO QHS Qty: 20 0RF ipratropium-albuterol 0.5 mg-3 mg(2.5 mg base)/3 mL solution for nebulization 3 ml INHALATION TID silver sulfadiazine 1 % cream 1 applic TOPICAL DAILY Rx Instructions: apply to coccyx levothyroxine 75 mcg tablet 150 mcg PO DAILY Patient Comments: takes M-Sat Rx Instructions: takes on Friday levofloxacin 750 mg tablet 750 mg PO DAILY 1 Days Qty: 1 0RF Rx Instructions: needs one more dose 06/09 at 1500 cranberry extract 425 mg Capsule 425 mg PO DAILY Rx Instructions: administer with a meal flecainide 50 mg tablet 50 mg PO BID dorzolamide 2 % drops 2 drp EACH EYE TID Rx Instructions: daily, noon and HS Eliquis 5 mg tablet 5 mg PO BID rosuvastatin 10 mg tablet 10 mg PO HS nitroglycerin 0.4 mg tablet, sublingual 0.4 mg sublingual PRN PRN (Reason: Chest Pain) Rx Instructions: 1 tab po PRN q 5mins x 3 doses levothyroxine 75 mcg tablet 75 mcg PO DAILY Rx Instructions: takes Friday-Friday bromfenac 0.09 % drops 1 drp RIGHT EYE HS acetaminophen 500 mg capsule 1,000 mg PO Q6H PRN (Reason: pain) melatonin 5 mg Tablet 5 mg PO HS Qty: 30 0RF Antacid (calcium carbonate) 500 mg PO TID PRN (Reason: Indigestion) hyoscyamine sulfate 0.125 mg Tablet 0.125 mg PO BID PRN (Reason: cramping) nystatin 100,000 unit/gram cream 1 applic TOPICAL BID Rx Instructions: mix with zinc oxide cream and apply to groin and brittany area BID and PRN acetic acid 0.25 % Solution 30 ml irrigation EVERY OTHER DAY Patient Comments: 30 ml irrigation every shift to flush suprapubic catheter every day Rx Instructions: Flush suprapubic catheter Fri, Fri, Friday Saccharomyces boulardii [Florastor] 250 mg Capsule 250 mg PO BID Follow-up/Referrals: UNKNOWN,DOCTOR [Primary Care Provider] - Time of Disposition: 06:54
[2024-08-19 06:08] LABS: Basophils Absolute Auto 0.1 K/mm3 (0.0-0.1); Basophils Percent Auto 0.5 % (0.2-1.2); Eosinophils Absolute Auto 0.5 K/mm3 (0-0.3); Eosinophils Percent Auto 3.1 % (0-4.4); Hematocrit 44.9 % (37.0-47.0); Hemoglobin 14.1 g/dL (12.0-15.0); Immature Granulocyte Absolute 0.06 K/mm3 (0.00-0.031); Immature Granulocyte Percent A 0.4 % (0-0.5); Lymphocytes Absolute Auto 2.41 K/mm3 (0.9-3.2); Lymphocytes Percent Auto 16.1 % (18.3-44.2); Mean Corpuscular HGB Conc 31.4 g/dl (32-36); Mean Corpuscular Hemoglobin 26.1 pg (26-34); Mean Platelet Volume 10.9 fl (7.4-10.4); Monocytes Absolute Auto 2.3 K/mm3 (0.1-0.6); Monocytes Percent Auto 15.5 % (2.6-8.5); Neutrophils Absolute Auto 9.6 K/mm3 (1.3-6.7); Neutrophils Percent Auto 64.4 % (45.5-73.1); Platelet Count Result 261 k/mm3 (150-375); Red Blood Count 5.41 M/mm3 (4.2-5.4); Red Cell Distribution Width 14.6 % (11.5-14.5); White Blood Count 14.9 K/mm3 (4.5-10.0)
--- OUTSIDE RECORDS SUMMARY | 2024-08-19 06:08 | XMS_ITS ---
Author Organization [facility] Address [address] [place] [address] Care Team Providers [employer] Name Role Phone Migue Herman MD Unavailable [phone] Sonny Palmer MD Unavailable [phone] Unknown, Notinfile Primary Care Provider Unavail able Active Problems Problem Noted Date Diagnosed Date Encounter for monitoring flecainide therapy 11/17 Hyperlipidemia 12/06/2022 Weight loss 03/05/2021 Iron deficiency anemia due to chronic blood loss 01/18/2021 Constipation by delayed colonic transit 12/26/19 21 Pain and swelling of left wrist 12/25/2020 Anxiety 12/24/2020 Hypophosphatemia 12/23/2020 Normocytic anemia 12/21/2020 Urinary tract infection asso ciated with indwelling urethral catheter 12/21/2020 Paroxysmal atrial fibrillation 12/21/2020 History of pulmonary embolism 12/21/2020 Type 2 diabetes mellitus 12/21/2020 Chronic diastolic (congestive) heart failure 09/2020 Anxiety 12/21/2020 CAD (coronary artery disease) 12/21/2020 HTN (hypertension) 12/21/2020 Occult blood in stools 12/20/2020 Overview (12/22/2020): Added automatically from request for surgery [id number] Cystitis 05/14/2019 Chronic constipation 05/14/2019 Recurrent inguinal hernia 05/14/2019 Fall 03/19/2019 Hypokalemia 03/19/2019 Hypercalcemia 03/19/2019 Chronic diastolic congestive heart failure 10/03 PAF (paroxysmal atrial fibrillation) 10/01/2017 Assessment & Plan (10/01/2017 5:41 AM [...] 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 Lymphedema of both lower extremities 10/01/2017 [...] BYPAS GRFT Peripheral edema Multiple falls Current Treatment and Therapy Plans No current plan information found. Past Treatment and Therapy Plans Resolved Problems Problem Noted Date Diagnosed Date Resolved Date Hypokalemia 12/21/2020 12/26/2020
--- OUTSIDE RECORDS SUMMARY | 2024-08-19 06:08 | XMS_ITS | Encounter Summary ---
Author Organization [facility] Address [address] [place] [address] Care Team Providers [facility] Name Role Phone Theresa Camargo MD Primary Care Provider [phone] Laz Valencia MD Unavailable [phone] Migue Herman MD Unavailable [phone] Sonny Palmer MD Unavailable [phone] Elizabeth Car MD Primary Care Provider Unknown, Notinfile Primary Care Provider Unavail able Encounter Details Date Type Department Care Team (Late st Contact Info) Description 08/01/2020 Telephone [facility] [address] [place] [address] Rosa Espinoza, RT Social History Tobacco Use Types Packs/Day Years Used Date Smoking Tobacco: Never Smokeless Tobacco: Never Alcohol Use Standard Drinks/Week Comments No 0 (1 standard drink = 0.6 oz pur e alcohol) PHQ-2 Answer Date Recorded PHQ-2 Score 0 03/06/2019 Comments No Sex and Gender Information Value Date Recorded Sex Assigned at Not on file Legal Sex Female 6:56 PM [employer]ER [employer] Gender Identity Not on file Sexual Orientation Not on file documented as of this encounter Plan of Treatment Not on file documented as of this encounter Visit Diagnoses Not on filedocumented in this encounter Additional Health Concerns Infection Onset Date Last Indicated Resolved Time COVID: Suspected 12/20/2020 12/20/2020 12/20/2020 6:55 PM CDT documented as of this encounter Care Teams [facility] Relationship Specialty Start Date End Date Theresa Camargo MD PCP - General 09/29/18 12/05/22 Elizabeth Car MD [id number] [facility] [address] [place] [address] PCP - General Family Medicine 12/06/22 08/11/24 Unknown, Notinfile PCP - General 08/12/24 Laz Valencia MD Consulting Physician Cardiology 03/22/19 12/05/22 Migue Herman MD Consulting Physician Urology 05/16/19 Sonny Palmer MD Surgeon General Surgery 05/16/19 documented as of this encounter
--- OUTSIDE RECORDS SUMMARY | 2024-08-19 06:08 | XMS_ITS | Clinical Summary ---
Author Organization [facility] Address [address] [place] [address] Care Team Providers Care Cylinder Batcher Name Role Phone Etienne Florez MD Unavailable [phone] Enrique Gonzalez MD Unavailable [phone] Nelson Ross MD Unavailable [phone] Laz Valencia MD Unavailable Russell Moran MD Unavailable Yuliya Ibarra MD Unavailable [phone] Phuong Callejas DPM Unavailable [phone] Sy Barrientos MD Unavailable Russell Moran MD Unavailable Rico Gasca MD Unavailable Elle Landaverde MD Unavailable [phone] Kirk Truong MD Unavailable Shira Love DO Unavailable [phone] Sara Schultz MD Unavailable [phone] Hussain Ray MD Unavailable [phone] Elizabeth Car MD Primary Care Provider + Source Comments [facility],non-owned Affiliates and Associated Physician Practices is amultiple site organization consisting of ambulatory clinics and hospital sitesin [place], [place], [place] and [place]. This disclosure is being madepursuant to the Care Everywhere program and may not contain all information available regarding this patient. 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 ER pos 97% (strong), IL pos 23% (moderate), Her-2 neg (1+ on [...] proteus Assessment & Plan (07/20/2019 8:50 PM SHOE STICKS REPAIRER): - Lower urinary tract symptoms (LUTS) 03/23/2019 11/23/2019 Overview (03/24/2019): 11/2018 on myrbetriq 25mg (Dr. Gasca) with some improvement. Had confusion with 50mg? 03/24/19 PVR 304mL. Olivas placed for incontinence, quality of life. Stop myrbetriq. Assessment & Plan (07/20/2019 8:50 PM SHOE STICKS REPAIRER): - Assessment & Plan (06/01/2019 9:22 PM SHOE STICKS REPAIRER): - Assessment & Plan (03/23/2019 4:31 PM SHOE STICKS REPAIRER): - Pneumonia due to infectious organism 07/24/2018 [...] LURIA, FLUZONE TRIVALENT; 6MO+) (IIV3) 02/04/2013,02/14/2012,02/10/2012 Covid Blowtorch primary monoval ent 12+ yr 0.3mL Purple [...] Comments Blood Pressure 127/52 05/30/2022 8:09 AM SHOE STICKS REPAIRER Pulse 80 05/30/2022 8:09 AM SHOE STICKS REPAIRER Temperature 37 C (98.6 F) 05/30/2022 8:09 AM SHOE STICKS REPAIRER Respiratory Rate 19 05/30/2022 8:09 AM SHOE STICKS REPAIRER Oxygen Saturation 96% 05/30/2022 8:09 AM SHOE STICKS REPAIRER Inhaled Oxygen Concentration - - Weight 85.1 kg (187 lb 10.5 oz) 05/23/2022 4:00 AM SHOE STICKS REPAIRER Height 162.6 cm (5' 4 ) 05/22/2022 11:3 9 AM SHOE STICKS REPAIRER Body Mass Index 32.21 05/22/2022 11:39 AM SHOE STICKS REPAIRER Plan of Treatment Health Maintenance Due Date Last Done Comments ZOSTER VACCINE (2 of 3) 10/19/2007 08/24/2007 Respiratory Syncytial Virus (RSV) Vaccine Pt: or over 60 yrs (1 - 1-dose 75+ series) 2013 DIABETES-FOOT EXAM WITH MONOFILAMENT 06/09/2021 06/09/2020, 03/19/2018 (Done Outside Per Patient) MEDICARE AWV 12 MONTHS 06/09/2021 06/09/2020, 06/09/2020, 01/04/2019 DIABETES-HGB A1C 06/10/2021 12/08/2020, , 11/15/2019, Additional history exists DIABETES RETINOPATHY SCREENING 10/22/2022 10/22/2021, 07/27/2020, 12/30/2019, Additional history exists COVID-19 VACCINE ( season) 2024 02/27/2022, 07/28/2021, 07/07/2020, Additional history exists DEPRESSION SCREENING 05/19/2024 08/01/2021 INFLUENZA VACCINE (Season Ended) 2025 03/02/2020, 03/05/2019, 03/05/2019, Additional history exists DTAP/TDAP/TD VACCINES [...] patient's age to complete this topic MENINGOCOCCAL (Group B) VACCINE SHARED DECISION-MAKING Aged Out No longer eligible based on patient's age to complete this topic MENINGOCOCCAL GROUPS A/C/Y/W VACCINE Aged Out No longer eligible based on patient's age to complete this topic Goals Goal Patient Goal Type Associated Problems Recent Progress Patient-Stated? Author Blood Pressure < 140/90 Blood Pressure 127/52(2022 8:09 AM SHOE STICKS REPAIRER) No Alisa Jaramillo HEMOGLOBIN A1C < 7.0 Result Component 5.4( 12:00 AM CDT) No Alisa Jaramillo Procedures Procedure Name Priority Date/Time Associated Diagnosis Comments EYE EXAM 10/22/2021 HEMOGLOBIN A1C Routine 12/08/2020 12:00 AM CDT Type 2 diabetes mellitus without complication, with long-term current use of insulin DEXA BONE DENSITY AXIAL SKELETON Routine 10/29/2017 10:58 AM CDT Infiltrating ductal carcinoma of left breast Use of aromatase inhibitors from Last 3 Months or Most Recently Relevant to Health Maintenance Results * EYE EXAM (10/22/2021) Anatomical Region Laterality Modality Other 10/22/2021 Narrative 10/22/2021 Ordered by an unspecified provider. Scanned Document SCANNING ONLY * HEMOGLOBIN A1C (12/08/2020 12:00 AM CDT) Hemoglobin A1c 5.4 4.8 - 5.6 % [facility] INSURANCE BILL Comment: . Prediabetes: 5.7 - 6.4 Diabetes: >6.4 Glycemic control for adults with diabetes: <7.0 Blood BLOOD SPECIMEN / Unknown 12/08/2020 12/08/2020 Narrative Resulting Agency Comment Lab Testing performed at: [facility] [place] [address] [facility] [id number] Theresa Camargo MD LAB - CHEMISTRY [facility] Organization Address City/State/ZIP Co de Phone Number [facility] [address] [place] [address] * DEXA BONE DENSITY AXIAL SKELETON (10/29/2017 10:58 AM CDT) Anatomical Region Laterality Modality Mammography 10/29/2017 11:1 6 AM CDT Narrative 10/29/2017 11:17 AM CDT BONE MINERAL DENSITY STUDY INDICATION: Postmenopausal ovarian [...] Type MEDICARE MEDICARE PART A AND B [id number] 2003-Pres ent [address] [place] [address] Medicare [place] [employer] [place] [id number] Effective for all dates [address] [place] [address] Commercial MEDICARE MANAGED CARE PLAN GENERIC MEDICARE ADV MEDICARE MANAGED CARE PLAN GENERIC [id number] Effective for all dates Medicare-Manag ed Care Advance Directives Documents on File Type Date Recorded Patient Accounts Payable Professional Expl anation Adv Directive/Living Will/POA 09/21/2020 7:42 [...] 8:33 PM 08/26/2017 12:39 PM Care Teams Cylinder Batcher Relationship Specialty Start Date End Date Elizabeth Car MD [address] [place] [address] PCP - General Family Medicine 08/15/22 Etienne Florez MD Orthopedic Surgery 12/09/14 [place] [address] [address] Oncology 09/15/17 [place] [address] [phone] Neurology 06/26/18 [place] [address] [address] Cardiovascular Disease 06/26/18 [place] [address] [id number] Pulmonary Disease 06/26/18 Yuliya Ibarra MD [address] [facility] [address] [place] [address] Endocrinology 06/26/18 Phuong Callejas DPM [address] [place] [address] Podiatry 06/26/18 Sy Barrientos MD [address] [place] [address] [place] [address] Ophthalmology 06/26/18 [place] [address] [address] Pulmonary Disease 06/26/18 Rico Gasca MD [address] [facility] [address] [place] [address] Urology 06/26/18 Elle Landaverde MD [address] [facility] [address] [place] [address] Vascular Surgery 06/26/18 Kirk Truong MD [address] [facility] [address] [place] [address] Gastroenterology 06/26/18 [place] [address] [address] [place] [address] General Surgery 06/26/18 [place] [address] [place] [address] Pulmonary Disease 11/10/20 Hussain Ray MD [address] [facility] [address] [facility] [address] [place] [address] Urology 07/11/21
--- OUTSIDE RECORDS SUMMARY | 2024-08-19 06:08 | XMS_ITS | Clinical Summary ---
Author Organization [facility] Address [address] [place] [address] Care Team Providers Care Prescription Clerk Name Role Phone Migue Herman MD Unavailable [phone] Sonny Palmer MD Unavailable [phone] Unknown, Notinfile Primary Care Provider Unavail able Allergies Active Allergy Reactions Criticality Noted Date [...] Active Additional Information Patient not taking.Reported on 08/12/2024 busPIRone (BUSPAR) 5 mg tablet 3 Active [...] 1 tablet (150 mcg total) by mouth optical systems engineer before breakfast 4 Active levothyroxine (SYNTHROID) 75 mcg tablet Take 1 tablet (75 mcg total) by mouth optical systems engineer before breakfast Once a day MON thru [...] (12/22/2020): Added automatically from request for surgery [id number] Cystitis 05/14/2019 Chronic constipation 05/14/2019 Recurrent inguinal [...] had 1 episode of nausea vomiting captain assistant. Lymphedema of both lower extremities 10/01/2017 Assessment [...] Encounters Date Type Department Care Team Description 08/12/2024 10:00 AM CDT Office Visit [facility] Cardiology [address] [place] [address] Maria Dolores Kinsey NP Shortness of breath (Primary Dx); Aortic valve stenosis, etiology of cardiac valve disease unspecified; Coronary artery disease involving [place] coronary artery of [place] heart without angina pectoris; PAF (paroxysmal atrial fibrillation) (HCC); Chronic anticoagulation from Last 3 Months Immunizations Immunization Administration Dates Next Due Influenza, Split 03/01/2011,03/07/2010 [...] Anemia Anemia Hx Other Medical Fx Sacrum 1999 Hx Other Medical Lymphatic edema Hyperlipidemia Hyperlipidemia Osteoarthritis Osteoarthritis Hx Other Medical Spinal Cerebell um Degeneration Herpes zoster Herpes zoster Chronic coronary artery disease Coronary artery disease Hx Other Medical URI/GERD; Outco me: improved Hx Other Medical TIA Diabetes mellitus (HCC) Atrial fibrillation (HCC) Pneumonia Glaucoma Familial spastic paraplegia (HCC) Sleep apnea Lymphatic edema A-fib (HCC) Anxiety Heart disease Neuromuscular disorder (HCC) [...] often do you attend chur ch or druze services? 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 Gender Identity Not on file Sexual Orientation Not on file Obstetrics History Last Filed Vital Signs Vital Sign Reading Time Taken Comments Blood Pressure 104/48 08/12/2024 10:00 AM CDT Pulse 77 08/12/2024 10:00 AM CDT Temperature 36.4 C (97.6 F) 08/06/2021 11:37 AM CDT Respiratory Rate 18 08/06/2021 11:37 AM CDT Oxygen Saturation 97% 08/12/2024 10:00 AM CDT on 2L oxygen Inhaled Oxygen Concentration - - Weight 79.4 kg (175 lb) 03/04/2024 2:34 PM CDT Height 165.1 cm (5' 5 ) 08/12/2024 10:00 AM CDT Body Mass Index 29.12 03/04/2024 2:34 PM CDT Plan of Treatment Health Maintenance Due Date Last Done Comments Albumin Creatinine Ratio, Urine 1940 Dilated Eye Exam 1940 Foot Exam 1938 Hepatitis B Screening 1958 Well Visit 65+ 12/01/2003 Zoster Vaccine (1 of 2) 10/19/2007 08/24/2007 Depression Screening 05/13/2020 05/13/2019, 03/19/2019, 03/05/2019 Covid-19 Vaccine (3 - Pfizer risk series) 08/04/2020 07/07/2020, 06/13/2020 Lipid Panel 11/25/2020 11/26/2019, 04/0 05/2015, 04/19/2014, Additional history exists Hemoglobin A1C 06/10/2021 12/08/2020, 04/3 , 05/05/2020, Additional history exists Fall Risk Assessment 02/16/2022 [...] Procedure Name Priority Date/Time Associated Diagnosis Comments ELECTROCARDIOGRAM REPORT Routine 08/13/2024 PAF (paroxysmal atrial fibrillation) ([facility]) EGFR Routine 08/30/2022 12:10 PM CDT PLASMA LIPID PANEL Routine 08/18/2015 5: 00 AM CDT from Last 3 Months or Most Recently Relevant to Health Maintenance Results * Electrocardiogram Report (08/13/2024) 08/13/2024 us Maria Dolores Kinsey NP ECG ORDERABLES Final Res ult * eGFR (08/30/2022 12:10 PM CDT) eGFR 95 mL/min/1. 73 m2 MADDI GRACIA Comment: Interpretive Data Reference Interval Normal >/= 90 mL/min/1.73m2 Mildly decreased* 60 - 89 mL/min/1.73m2 Mildly to moderately decreased 45 - 59 mL/min/1.73m2 Moderately to severely decreased 30 - 44 mL/min/1.73m2 Severely decreased 15 - 29 mL/min/1.73m2 Kidney Failure < 15 mL/min/1.73m2 *Relative to young adult level Estimated glomerular [...] LAB BLOOD ORDERABLES Fi nal Result [facility] [address] [facility] Department [place] [address] * (ABNORMAL) Plasma lipid panel (08/18/2015 5:00 AM CDT) [facility] Cholesterol 112 100 - 200 mg/dl HISTORICAL RESULTS Triglycerides 175(H) 10 - 150 mg/dl HISTORICAL RESULTS HDL 27(L) 40 - 59 mg/dl HISTORICAL RESULTS LDL 50(L) 60 - 129 mg/dl HISTORICAL RESULTS Plasma 08/18/2015 5:00 AM CDT Narrative HISTORICAL RESULTS - 08/18/2015 6:29 AM CDT Test performed at [address], [facility]. Historical Provider LAB BLOOD ORDERABLES Bárbara l Result Performing Organization Address City/[facility] Co de Phone Number HISTORICAL RESULTS from Last 3 Months or Most Recently Relevant to Health Maintenance Insurance IDPA MEDICARE COMMERCIAL GENERIC MEDICARE COMMERCIAL GENERIC ATTN: [place]S [place] [address] IDID MEDICARE Advance Directives For more information, please contact: [phone] Documents on File Type Date Recorded Patient Customer Manager Expl anation ADVANCE DIRECTIVE 04/06/2018 9:51 PM [...] 1:59 PM 03/22/2019 10:28 PM Care Teams Prescription Clerk Relationship Specialty Start Date End Date Unknown, Notinfile PCP - General 08/12/24 Migue Herman MD Consulting Physician Urology 05/16/19 Sonny Palmer MD Surgeon General Surgery 05/16/19
--- OUTSIDE RECORDS SUMMARY | 2024-08-19 06:08 | XMS_ITS | Clinical Summary ---
Author Organization [facility] Address [address] [place] [address] Phone Care Team Providers Care Vehicle Assembler Name Role Phone Theresa Camargo MD Primary Care Provider [phone] Allergies Active Allergy Reactions Criticality Noted Date Comments Diltiazem Unknown 09/10/2010 Donepezil Unknown 09/10/2010 Fluticasone Propion-Salmeterol Unknown 09/10 Medications esomeprazole (NEXIUM) 40 mg Oral CpDR Take 40 mg by mouth daily before breakfast. Active amitriptyline (ELAVIL) 50 mg Oral tablet Take 50 mg by mouth daily at bedtime. Active rosuvastatin (CRESTOR) 10 mg Oral tablet Take 10 mg by mouth daily at bedtime. Active cyanocobalamin (VITAMIN B-12) 1,000 mcg Oral Tab Take 1,000 mcg by mouth daily. Active multivitamin (DAILY-BRYON) Oral tabletIndicatio ns:instructed to stop prior to surgery Take 1 Tab by mouth daily. Indications: instructed to stop prior to surgery Active lancets (FREESTYLE LANCETS) 28 gauge 100 Each by [facility].(Non-Drug; Combo Route) route daily. Dx code 250.02 100 Each 6 4 Active potassium chloride (KLOR-CON) 10 mEq Extended Release tablet TAKE 4 TABLETS DAILY WITH BREAKFAST 360 Tablet 7 Active metOLazone (ZAROXOLYN) 2.5 mg tablet Take 2.5 mg by mouth every 7 days. Active albuterol HFA 90 mcg inhaler Take 2 Puffs by mouth. Active anastrozole (ARIMIDEX) 1 mg tablet Take 1 mg by mouth. 8 Active aspirin-calcium carbonate 81 mg-300 mg calcium(777 mg) Tablet Take 81 mg by mouth. Active Calcium Carbonate-Vit D3-Min 600 mg calcium- 400 unit Tablet Take 1 Tablet by mouth. 8 Active linaclotide (LINZESS) 145 mcg capsule Take 145 mcg by mouth. 8 Active polyethylene glycol (MIRALAX) 17 gram Powder in Packet Take 17 Grams by mouth. Active verapamil (VERELAN) 240 mg Sustained Release 24 hour capsule Take 240 mg by mouth. Active denosumab (PROLIA) 60 mg/mL Syringe Inject 60 mg by subcutaneous injection Every twentysix weeks. Active insulin glargine (Lantus Solostar U-100 Insulin) 100 unit/mL pen syringe 10 units SQ in am 15 mL 2 1 Active levothyroxine 75 mcg tablet Take 1 tablet Friday-Friday, 1/2 tablet on Friday. Dose change 05/04/21 90 Tablet 1 1 Active BD Maddi 2nd Gen Pen Needle 32 gauge x 5/32 Needle USE TO INJECT INSULIN ONCE DAILY 100 Each 3 2 Active Invokana 100 mg TAKE 1 TABLET BY MOUTH EVERY DAY BEFORE BREAKFAST 90 Tablet 2 Active glimepiride (AMARYL) 1 mg tabletIndicatio ns:Type 2 diabetes mellitus without complication, without long-term current use of insulin ([facility]) TAKE 2 TABLETS BY MOUTH WITH BREAKFAST AND LUNCH, AND 1 TABLET WITH DINNER 540 Tablet 2 Active blood sugar diagnostic (FreeStyle Lite Strips) Strip TEST BLOOD SUGARS THREE TIMES A DAY DX E11.9 300 Strip 2 Active Eliquis 5 mg tablet 2 Active bisacodyL (DULCOLAX) 10 mg Suppository Insert 10 mg by rectum 1 time daily as needed. 3 Active Cranberry Extract 425 mg Capsule Take 425 mg by mouth daily. Active furosemide (LASIX) 40 mg tablet 2 Active HYDROcodone-niya taminophen (NORCO) 5-325 mg tablet 2 Active lactulose (ENULOSE) 10 gram/15 mL 10 gram/15 mL solution 2 Active metoclopramide HCl (REGLAN) 10 mg tablet 2 Active nitroglycerin (NITROSTAT) 0.4 mg Tablet, Sublingual Place 0.4 mg under tongue every 5 minutes as needed. Active spironolactone (ALDACTONE) 25 mg tablet 2 Active trospium (SANCTURA) 20 mg Tablet 2 Active Januvia 100 mg Tablet 2 Active acetaminophen (TYLENOL) 500 mg Capsule Take 1,000 mg by mouth every 6 hours as needed. Active busPIRone (BUSPAR) 5 mg tablet Take 5 mg by mouth 3 times daily. 3 Active clobetasoL (TEMOVATE) 0.05 % Cream Apply to affected area 2 times daily. 4 Active escitalopram oxalate (LEXAPRO) 10 mg tablet Take 10 mg by mouth daily. Active flecainide (TAMBOCOR) 50 mg Tablet Take 50 mg by mouth 2 times daily. 1 Active hydrOXYzine HCL (ATARAX) 25 mg tablet Take 25 mg by mouth. 3 Active ketoconazole (NIZORAL) 2 % Cream Apply to affected area daily. 4 Active Active Problems Patient Care Coordination No [...] Diabetes mellitus type II, uncontrolled 07/30/2013 01/17/2017 Encounters Date Type Department Care Team Description 08/04/2024 External Device Data STL ABSTRACTION Provider, Abstract 07/24/2024 External Device Data STL ABSTRACTION Provider, Abstract 07/23/2024 External Device Data STL ABSTRACTION Provider, Abstract 07/07/2024 External Device Data STL ABSTRACTION Provider, Abstract 06/16/2024 External Device Data STL ABSTRACTION Provider, Abstract 06/10/2024 External Device Data STL ABSTRACTION Provider, Abstract from Last 3 Months Family History Medical History Relation Name Comments [...] at Not on file Legal Sex Female 6:00 AM DIRECTOR PRODUCT MANAGEMENT Gender Identity Not on file Sexual Orientation Not on file Occupation Industry Job Start Date Job End Date Not on file Not on file Not on file Not on file Last Filed Vital Signs Vital Sign Reading Time Taken Comments Blood Pressure 142/62 01/07/2024 1:47 PM CDT Pulse 74 01/07/2024 1:44 PM CDT Temperature 36.5 C (97.7 F) 01/07/2024 1:44 PM CDT Respiratory Rate 16 01/07/2024 1:44 PM CDT Oxygen Saturation 93% 01/07/2024 1:44 PM CDT Inhaled Oxygen Concentration - - Weight 72.6 kg (160 lb) 01/07/2024 1:44 PM CDT Height 165.1 cm (5' 5 ) 06/06/2022 1:30 PM DIRECTOR PRODUCT MANAGEMENT Body Mass Index 26.63 06/06/2022 1:30 PM DIRECTOR PRODUCT MANAGEMENT Plan of Treatment Upcoming Encounters Date Type Department Care Team (Late st Contact Info) Description 09/27/2024 2:00 PM CDT Office Visit [facility] - [place] [address] [place] [address] Ovidio Nolen MD [address] [place] [address] Health Maintenance Due Date Last [...] DIABETES HBA1C Q 6 MONTHS 02/15/20222021, 04/27/2021, 12/08/2020, Additional history exists DIABETES ANNUAL RETINAL EXAM 10/22/202210/2021, 10/22/2021, 02/15/2021, Additional history exists INFLUENZA VACCINE (#1) 2023 0, 03/05/2019, 03/31/2018, Additional history exists COVID-19 Vaccine (3 - 2023-2 5 season) 2024 07/07/2020, 06/13/2020 DTAP/TDAP/TD VACCINES (2 - T d or Tdap) 08/29/2025 08/30/2015 PNEUMOCOCCAL VACCINE 50+ YEARS Completed 0 02/16/2016, 12/04/2010, 11/29/2005 OSTEOPOROSIS SCREENING Completed 1, 06/06/2020, 10/29/2017, Additional history exists COLORECTAL SCREENING Discontinued 12/27/2020, 12/27/2020, 02/17/2019, Additional history exists Colorectal Cancer Screening Discontinued Flex Sig/CT Colonography Q 5 years Discontinued 12/27/2020, 12/27/2020 FIT-DNA Q 3 years Discontinued FIT/FOBT Q 1 year Discontinued Medical Devices Implanted Type Area Occupational Therapist Aide Device Identifier Shelf Expiration Date Model / Serial / Lot Log [id number] - Bladder Slings And Tapes - 1 - Sling Desara System [id number] Implanted:Qty: 1 on 09/10/2010 at [facility] Sling N/A: Vagina [employer] 05/17/2013 [id number] / / [id number] Procedures Procedure Name Priority Date/Time Associated Diagnosis Comments XR DEXA BONE DENSITY AXIAL 1 OR MORE SITES Routine 06/06/2020 10:40 AM DIRECTOR PRODUCT MANAGEMENT Hyperparathyroidism, unspecified Subclinical hypothyroidism HEMOGLOBIN A1C Routine 05/05/2020 1:54 PM DIRECTOR PRODUCT MANAGEMENT Type 2 diabetes mellitus not at goal ([facility]) MICROALBUMIN/CREATI NINE RATIO, RANDOM UR Routine 05/02/2017 12:38 PM DIRECTOR PRODUCT MANAGEMENT Type 2 diabetes mellitus without complication, without long-term current use of insulin ([facility]) LIPID PANEL Routine 12/12/2016 4:14 AM CDT Type 2 diabetes mellitus without complication, with long-term current use of insulin ([facility]) from Last 3 Months or Most Recently Relevant to Health Maintenance Results * XR DEXA BONE DENSITY AXIAL 1 OR MORE SITES (06/06/2020 10:40 AM DIRECTOR PRODUCT MANAGEMENT) Anatomical Region Laterality Modality Digital Radiogra phy 06/06/2020 11:0 3 AM DIRECTOR PRODUCT MANAGEMENT Impressions 06/06/2020 11:14 AM DIRECTOR PRODUCT MANAGEMENT IMPRESSION: This is a summary page. Please refer to the complete detailed report found in the Imaging Section of the [facility] EMR. Osteopenia. Lumbar Spine: T-Score: -1.5 Left [...] Smart MD DICTATION LOCATION: 06/06/2020 11:14 AM DIRECTOR PRODUCT MANAGEMENT EXAMINATION: BONE DENSITY STUDY (DXA) DATE: 06/06/2020 10:40 AM HISTORY: 79 years Female. Postmenopausal. PROCEDURE: Planar images of the lumbar spine, hip(s) and forearm(s) using a [place] DEXA scanner for bone mineral density determination [...] FINDINGS: L3-L4 excluded because of statistical variation. Procedure Note Emile Smart MD - 06/06/2020 EXAMINATION: BONE DENSITY STUDY (DXA) DATE: 06/06/2020 10:40 AM HISTORY: 79 years Female. Postmenopausal. PROCEDURE: Planar images of the lumbar spine, hip(s) and forearm(s) using a [place] DEXA scanner for bone mineral density determination [...] found in the Imaging Section of the [facility] EMR. Osteopenia. Lumbar Spine: T-Score: -1.5 Left [...] LOCATION: 1 Yuliya Ibarra MD DIAGNOSTIC IMAGING ORDERABLES Final Result * (ABNORMAL) HEMOGLOBIN A1C (05/05/2020 1:54 PM DIRECTOR PRODUCT MANAGEMENT) HEMOGLOBIN A1C 7.1(H) <5.7 % of total Hgb Accessory Addict Society [facility] Comment: For someone without known diabetes, a [...] of diabetes for children. Test Performed at: [facility] [address] [place] [address] Elie Hamlin D.O., MPH Blood 05/05/2020 1:54 PM DIRECTOR PRODUCT MANAGEMENT Yuliya Ibarra MD CHEMISTRY ORDERABLES Final Re sult Accessory Addict Society [facility] [address] [place] [address] * MICROALBUMIN/CREATININE RATIO, RANDOM UR (05/02/2017 12:38 PM DIRECTOR PRODUCT MANAGEMENT) MICROALBUMIN, URINE <1.2 No Reference Range mg/dL 05/02/2017 2:23 PM DIRECTOR PRODUCT MANAGEMENT [facility] CREATININE, URINE 59.8 29.0 - 226.0 mg/dL 05/02/2017 2:23 PM DIRECTOR PRODUCT MANAGEMENT [facility] Comment: Reference Range varies with fluid intake and diet. MICROALBUMIN/C REAT RATIO, UR <20.1 <25.0 mg/g 05/02/2017 2:23 PM DIRECTOR PRODUCT MANAGEMENT [facility] Urine URINE SPECIMEN OBTAINED BY CLEAN CATCH PROCEDURE / Unknown Collection / Unknown 05/02/2017 12:38 PM DIRECTOR PRODUCT MANAGEMENT 05/02/2017 1:18 PM DIRECTOR PRODUCT MANAGEMENT Narrative [facility] - 05/02/2017 2:23 PM DIRECTOR PRODUCT MANAGEMENT Condition Microalbumin/Creat ratio Normal Males <17 Normal Females <25 Microalbuminuria Males 17-299 Microalbuminuria Females 25-299 Overt proteinuria >=300 Yuliya Ibarra MD URINE ORDERABLES Final Result [facility] [employer] [facility] CLIA# [id number] [address] [place] [address] * (ABNORMAL) LIPID PANEL (12/12/2016 4:14 AM CDT) CHOLESTEROL 97(L) 125 - 200 mg/dL [facility] HDL 33(L) > OR = 46 mg/dL [employer] [facility] TRIGLYCERIDE 138 <150 mg/dL [facility] [employer] [facility] LDL CALCULATED 36 <130 mg/dL (calc) [facility] Comment: Desirable range <100 mg/dL for patients with CHD or diabetes and <70 mg/dL for diabetic patients with known heart disease. CHOL/HDL RATIO 2.9 < OR = 5.0 (calc) [facility] TOTAL NON-HDL CHOL(LDL+VLDL) 64 mg/dL (calc) [facility] Comment: Target for non-HDL cholesterol is 30 mg/dL higher than LDL cholesterol target. Test Performed at: [facility] [address] [place] [address] ELIE HAMLIN DO,MPH Blood 12/12/2016 4:14 AM CDT Yuliya Ibarra MD CHEMISTRY ORDERABLES Final Re sult Accessory Addict Society [facility] [address] [place] [address] from Last 3 Months or Most Recently Relevant to Health Maintenance Insurance MEDICAID [place] MEDICARE PART A AND B Advance Directives For more information, please contact: [phone] Documents on File Type Date Recorded Patient Waiter/Waitress Club Expl anation Advance Directive POA 11/14/2014 10:49 AM * Full Code (Latest Code Status on File) Date Activated Date Inactivated Comments 09/10/2010 6:07 PM 09/11/2010 5:58 PM * Full Code Date Activated Date Inactivated Comments 09/10/2010 11:59 AM 09/10/2010 6:07 PM * Full Code Date Activated Date Inactivated Comments 09/10/2010 10:29 AM 09/10/2010 11:59 AM Care Teams Vehicle Assembler Relationship Specialty [place] [address] [address] PCP - General Internal Medicine 08/14/18
--- OUTSIDE RECORDS SUMMARY | 2024-08-19 06:08 | XMS_ITS ---
Author Organization [facility] Address [address] [place] [address] Care Team Providers Care [place] Cutter Name Role Phone Etienne Florez MD Unavailable [phone] Enrique Gonzalez MD Unavailable [phone] Nelson Ross MD Unavailable Laz Valencia MD Unavailable Russell Moran MD Unavailable [phone] Yuliya Ibarra MD Unavailable [phone] Phuong Callejas DPM Unavailable Sy Barrientos MD Unavailable Russell Moran MD Unavailable Rico Gasca MD Unavailable Elle Landaverde MD Unavailable [phone] Kirk Truong MD Unavailable Shira Love DO Unavailable Sara Schultz MD Unavailable [phone] Hussain Ray MD Unavailable [phone] Elizabeth Car MD Primary Care Provider + Active Problems Problem Noted Date Diagnosed Date 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 05/20/2022 Chronic indwelling Olivas catheter 05/19/2022 Gastric outlet obstruction 05/18/2022 Chronic diastolic CHF (congestive heart failure) 05/01/2021 Overview (05/01/2021): Encounter Details Date Type Department Care Team Description 07/31/2020 Office Visit [place] Suspender Maker [address] [place] [id number] Laz Valencia MD Type 2 diabetes [...] fibrillation 11/23/2019 Partial seizure 06/26/2018 Overview (06/26/2018): 2001 OAB (overactive bladder) 06/26/2018 Left ventricular hypertrophy [...] from 09/16/2017:Stage IA(cT1b, cN0, cM0, G2, ER+, MD+, HER2-) - Signed by Clarita Mir MD on 10/31/2018 Pathologic stage from 09/17/2017:Stage IA(pT1c, pN0(sn), cM0, G2, ER+, MD+, HER2-) - Signed by Clarita Mir MD [...] test 12/2015 Dr. Valencia 60 % blockage 2011 Lymphatic edema Current Oncology Plans OP SUPPORT [...] treatments are documented for this patient in [facility]. Treatments may have been administered in another [...] proteus Assessment & Plan (07/20/2019 8:50 PM BB SHOT PACKER): - Lower urinary tract symptoms (LUTS) 03/23/2019 11/23/2019 Overview (03/24/2019): 11/2018 on myrbetriq 25mg (Dr. Gasca) with some improvement. Had confusion with 50mg? 03/24/19 PVR 304mL. Olivas placed for incontinence, quality of life. Stop jayshree. Assessment & Plan (07/20/2019 8:50 PM BB SHOT PACKER): - Assessment & Plan (06/01/2019 9:22 PM BB SHOT PACKER): - Assessment & Plan (03/23/2019 4:31 PM BB SHOT PACKER): - Pneumonia due to infectious organism 07/24/2018 [...]
--- OUTSIDE RECORDS SUMMARY | 2024-08-19 06:08 | XMS_ITS | Encounter Summary ---
Author Organization [facility] Address [address] [place] [address] Care Team Providers Care Camp Manager Name Role Phone Etienne Florez MD Unavailable Enrique Gonzalez MD Unavailable [phone] Theresa Camargo MD Primary Care Provider Nelson Ross MD Unavailable Laz Valencia MD Unavailable Russell Moran MD Unavailable Yuliya Ibarra MD Unavailable [phone] Phuong Callejas DPM Unavailable [phone] Sy Barrientos MD Unavailable [phone] Russell Moran MD Unavailable [phone] Rico Gasca MD Unavailable Elle Landaverde MD Unavailable Kirk Truong MD Unavailable [phone] Shira Love DO Unavailable [phone] Sara Schultz MD Unavailable [phone] Hussain Ray MD Unavailable [phone] Enrique Gonzalez MD Unavailable [phone] Rosa Abraham RN Unavailable [phone] Elizabeth Car MD Primary Care Provider + Theresa Camargo MD Primary Care Provider [phone] Rosa Abraham RN Unavailable [phone] Elizabeth Car MD Primary Care Provider + Encounter Details Date Type Department Care Team (Late st Contact Info) Description 02/05/2022 [facility] Outpatient Visit [facility] [address] [place] [address] [place] [id number] [place] [address] Social History Tobacco Use Types Packs/Day [...] < 140/90 Blood Pressure 127/52(2022 8:09 AM BELT FIXER) No ClintAmbreAlisa HEMOGLOBIN A1C < 7.0 Result Component 5.4( 12:00 AM CDT) No Alisa Jaramillo documented as of this encounter Visit Diagnoses Not on filedocumented in this encounter Additional Health Concerns Infection Onset Date Last Indicated Resolved Time CDIFF Under Investigation 05/19/2022 05/19/2022 9:06 PM BELT FIXER documented as of this encounter Care Teams Camp Manager Relationship Specialty Start [place] [address] [facility] [address] [place] [address] PCP - General Internal Medicine 03/31/18 05/30/22 [place] [address] [facility] [address] [place] [address] PCP - Attributed-MSSP 11/16/21 10/03/22 Elizabeth Car MD [address] [place] [address] [address] [place] [address] PCP - General Family Medicine 05/31/22 08/05/22 [place] [address] [place] [address] PCP - General 08/06/22 08/14/22 Elizabeth Car MD [address] [facility] [address] [place] [address] PCP - General Family Medicine 08/15/22 Etienne Florez MD Orthopedic Surgery 12/09/14 [place] [address] [phone] Oncology 09/15/17 [place] [address] [phone] Neurology 06/26/18 L[place] [address] [place] [address] [address] [place] [address] Cardiovascular Disease 06/26/18 Russell Moran MD [address] [place] [address] Pulmonary Disease 06/26/18 Yuliya Ibarra MD [address] [facility] [address] [place] [address] Endocrinology 06/26/18 Phuong Callejas DPM [address] [place] [address] Podiatry 06/26/18 Sy Barrientos MD [address] [place] [address] Ophthalmology 06/26/18 Russell [place] [address] [place] [address] Pulmonary Disease 06/26/18 Rico Gasca MD [address] [place] [address] Urology 06/26/18 Elle Landaverde MD [address] [place] [address] Vascular Surgery 06/26/18 Kirk Truong MD [address] [place] [address] Gastroenterology 06/26/18 [place] [address] [place] [address] General Surgery 06/26/18 [place] [address] [facility] [address] [place] [address] Pulmonary Disease 11/10/20 Hussain Ray MD [address] [facility] [address] [place] [address] Urology 07/11/21 Rosa Abraham RN Carpenter AssemblerChurn Driller Helper 05/31/22 05/31/22 Rosa Abraham RN Carpenter AssemblerChurn Driller Helper 08/15/22 08/15/22 documented as of this encounter
--- OUTSIDE RECORDS SUMMARY | 2024-08-19 06:08 | XMS_ITS | Referral Summary ---
Author Organization [facility] Address [address] [place] [address] Care Team Providers Care Trick Rodeo Rider Name Role Phone Migue Herman MD Unavailable [phone] Sonny Palmer MD Unavailable [phone] Unknown, Notinfile Primary Care Provider Unavail able Encounters Date Type Department Care Team Description 08/12/2024 10:00 AM CDT Office Visit [facility] Cardiology [address] [place] [address] Maria Dolores Kinesy NP Shortness of breath (Primary Dx); Aortic valve stenosis, etiology of cardiac valve disease unspecified; 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; PAF (paroxysmal atrial fibrillation) (HCC); Chronic anticoagulation from Last 3 Months Allergies [...] 1 tablet (150 mcg total) by mouth small engine mechanic before breakfast 4 Active levothyroxine (SYNTHROID) 75 mcg tablet Take 1 tablet (75 mcg total) by mouth small engine mechanic before breakfast Once a day MON thru [...] loss 01/18/2021 Constipation by delayed colonic transit 08/09/20 21 Pain and swelling of left wrist [...] (12/22/2020): Added automatically from request for surgery [id number] Cystitis 05/14/2019 Chronic constipation 05/14/2019 Recurrent inguinal [...] 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 Lymphedema of both lower extremities 10/01/2017 [...] Date Resolved Date Hypokalemia 12/21/2020 12/26/2020 Immunizations Immunization Administration Dates Next Due Influenza, [...] often do you attend chur ch or jehovah's witness services? Never 12/25/2020 Do you belong to any clubs o r organizations such as mormonism groups, unions, fraternal or athletic groups, or [...] on file Legal Sex Female 6:56 PM GLASS WOOL BLANKET MACHINE FEEDER Gender Identity Not on file Sexual Orientation [...] REPORT Routine 08/13/2024 PAF (paroxysmal atrial fibrillation) (HCC) EGFR Routine 08/30/2022 12:10 PM CDT PLASMA LIPID PANEL Routine 08/18/2015 5: 00 AM CDT from Last 3 Months or Most Recently Relevant to Health Maintenance Results * Electrocardiogram Report (08/13/2024) 08/13/2024 us Maria Dolores Kinsey SUPERVISOR TUMBLERS ECG ORDERABLES Final Res ult * eGFR [...] LAB BLOOD ORDERABLES Fi nal Result [facility] [address] [address] Department [place] [address] * (ABNORMAL) Plasma lipid panel (08/18/2015 5:00 AM CDT) Cholesterol 112 100 - 200 mg/dl HISTORICAL RESULTS Triglycerides 175(H) 10 - 150 mg/dl HISTORICAL RESULTS HDL 27(L) 40 - 59 mg/dl HISTORICAL RESULTS LDL 50(L) 60 - 129 mg/dl HISTORICAL RESULTS Plasma 08/18/2015 5:00 AM CDT Narrative HISTORICAL RESULTS - 08/18/2015 6:29 AM CDT Test performed at [facility], [address] [place] [address], [facility], [address]. [place] Historical Provider LAB BLOOD ORDERABLES Bárbara mcdaniel Result HISTORICAL RESULTS from Last 3 Months or Most Recently Relevant to Health Maintenance Insurance [facility] MEDICARE [facility] Address: [address] [address] [place] [address] COMMERCIAL GENERIC [place] [address] MEDICARE COMMERCIAL GENERIC ATTN: CLAIMS [place] [address] [facility] [place] [address] Advance Directives For more information, please contact: [phone] Documents on File Type Date Recorded Patient Activities Director Scouting Expl anation ADVANCE DIRECTIVE 04/06/2018 9:51 PM [...] 1:59 PM 03/22/2019 10:28 PM Care Teams Trick Rodeo Rider Relationship Specialty Start Date End Date Unknown, Notinfile PCP - General 08/12/24 Migue Herman MD Consulting Physician Urology 05/16/19 Sonny Palmer MD Surgeon General Surgery 05/16/19
--- OUTSIDE RECORDS SUMMARY | 2024-08-19 06:08 | XMS_ITS | Encounter Summary ---
Author Organization [facility] Address [address] [address] Care Team Providers Care Auction Block Clerk Name Role Phone Etienne Florez MD Unavailable [phone] Enrique Gonzalez MD Unavailable [phone] Theresa Camargo MD Primary Care Provider Nelson Ross MD Unavailable [phone] Laz Valencia MD Unavailable Russell Moran MD Unavailable Yuliya Ibarra MD Unavailable Phuong Callejas DPM Unavailable Sy Barrientos MD Unavailable Russell Moran MD Unavailable Rico Gasca MD Unavailable Elle Landaverde MD Unavailable [phone] Kirk Truong MD Unavailable [phone] Shira Love DO Unavailable [phone] Theresa Camargo MD Unavailable + 00 Brooke Haynes SAFE AND VAULT SERVICE MECHANIC-INTERSTATE BUS DRIVER Unavailable [phone] Theresa Camargo MD Unavailable [phone] Brooke Haynes SAFE AND VAULT SERVICE MECHANIC-INTERSTATE BUS DRIVER Unavailable [phone] Theresa Camargo MD Unavailable [phone] Asha Narvaez SAFE AND VAULT SERVICE MECHANIC-INTERSTATE BUS DRIVER Unavailable [phone] Theresa Camargo MD Unavailable + 00 Asha Narvaez SAFE AND VAULT SERVICE MECHANIC-INTERSTATE BUS DRIVER Unavailable [phone] Sara Schultz MD Unavailable + [phone] Brooke Haynes SAFE AND VAULT SERVICE MECHANIC-INTERSTATE BUS DRIVER Unavailable [phone] Rosa Abraham RN Unavailable + Hussain Ray MD Unavailable + 00 Theresa Camargo MD Unavailable + 00 Enrique Gonzalez MD Unavailable + 42 Rosa Abraham RN Unavailable [phone] Elizabeth Car MD Primary Care Provider + Theresa Camargo MD Primary Care Provider +[phone] Rosa Abraham RN Unavailable + [phone] Elizabeth Car MD Primary Care Provider + Jarrell Garrison MD Unavailable Brooke Haynes SAFE AND VAULT SERVICE MECHANIC-INTERSTATE BUS DRIVER Unavailable +[phone] Encounter Details Date Type Department Care Team (Late st Contact Info) Description 08/05/2017 [facility] [address] [place] [address] Shira Love, [address] [place] [address] Social History Tobacco Use Types [...] < 140/90 Blood Pressure 127/52(2022 8:09 AM CUSTOMER ACCOUNT TECHNICIAN) No Alisa Jaramillo HEMOGLOBIN A1C < 7.0 Result Component 5.4( 12:00 AM CDT) No Alisa Jaramillo documented as of this encounter Visit Diagnoses Not on filedocumented in this encounter Additional Health Concerns Infection Onset Date Last Indicated Resolved Time COVID-19 Under Investigation 09/26/2020 09/26/2020 09/27/2020 7:46 AM CDT CDIFF Under Investigation 05/19/2022 05/19/2022 9:06 PM CUSTOMER ACCOUNT TECHNICIAN documented as of this encounter Care Teams Auction Block Clerk Relationship Specialty [place] [address] [facility] [address] [place] [address] PCP - General Internal Medicine 03/31/18 05/30/22 [place] [address] [facility] [address] [place] [address] PCP - Attributed-MSSP 03/19/19 06/18/19 Brooke Haynes APRN-INTERSTATE BUS DRIVER [address] [place] [address] PCP - Attributed-MSSP 06/19/19 07/17/19 [place] [address] [place] [address] PCP - Attributed-MSSP 07/18/19 10/17/19 Brooke Haynes APRN-INTERSTATE BUS DRIVER [address] [place] [address] PCP - Attributed-MSSP 10/18/19 11/16/19 [place] [address] [place] [address] PCP - Attributed-MSSP 11/17/19 02/16/20 Asha Narvaez APRN-INTERSTATE BUS DRIVER [address] [place] [address] PCP - Attributed-MSSP 02/17/20 06/18/20 [place] [address] [place] [address] PCP - Attributed-MSSP 06/19/20 08/16/20 Asha Narvaez APRN-INTERSTATE BUS DRIVER [address] [place] [address] PCP - Attributed-MSSP 08/17/20 10/16/20 Brooke Haynes APRN-INTERSTATE BUS DRIVER [address] [place] [address] PCP - Attributed-MSSP 10/17/20 09/15/21 [place] [address] [facility] [address] [place] [address] PCP - Attributed-MSSP 09/16/21 11/15/21 [place] [address] [facility] [address] [place] [id number] PCP - Attributed-MSSP 11/16/21 10/03/22 Elizabeth Car MD [address] [facility] [address] [place] [address] PCP - General Family Medicine 05/31/22 08/05/22 [place] [address] [facility] [address] [facility] [address] PCP - General 08/06/22 08/14/22 Elizabeth Car MD [address] [facility] [address] [place] [address] PCP - General Family Medicine 08/15/22 Jarrell Garrison MD Critical access hospital[facility] [address] [place] [id number] PCP - Attributed-MSSP 04/18/18 10/16/18 Brooke Haynes APRN-INTERSTATE BUS DRIVER [address] [place] [address] PCP - Attributed-MSSP 10/17/18 9 Etienne Florez MD Orthopedic Surgery 12/09/14 [place] [address] [facility] [address] [place] [address] Oncology 09/15/17 [place] [address] [facility] [address] [place] [phone] Neurology 06/26/[address] [place] [address] [facility] [address] [place] [address] Cardiovascular Disease 06/26/18 Russell Moran MD [address] [place] [address] Pulmonary Disease 06/26/18 Yuliya Ibarra MD [address] [facility] [address] [place] [phone] Endocrinology 06/26/18 Phuong Callejas DPM [address] [place] [address] Podiatry 06/26/18 yS Barrientos MD [address] [place] [address] [place] [address] Ophthalmology 06/26/18 Russell [place] [id number] [place] [address] Pulmonary Disease 06/26/18 Rico Gasca MD [address] [facility] [address], [place] [address] Urology 06/26/18 Elle Landaverde MD [address] [facility] [address], [place] [address] Vascular Surgery 06/26/18 Kirk Truong MD [address] [facility] [address], [place] [address] Gastroenterology 06/26/18 [place] [address] [facility] [address] [place] [address] General Surgery 06/26/18 [place] [address] [facility] [address] [place] [address] Pulmonary Disease 11/10/20 Rosa Abraham RN Science And Operations OfficerMedia Marketing Coordinator 06/19/21 07/05/21 Hussain Ray MD [address] [facility] [address] [place] [address] Urology 07/11/21 Rosa Abraham RN Science And Operations OfficerMedia Marketing Coordinator 05/31/22 05/31/22 Rosa Abraham RN Science And Operations OfficerMedia Marketing Coordinator 08/15/22 08/15/22 documented as of this encounter
[2024-08-19 06:14] LABS: Fractional Inspired Oxygen 100 %; HCO3 VBG 26.4 mEq/l (24.0-30.0); PCO2 VBG 48.3 mmHg (42.0-48.0); PO2 VBG 35.9 mmHg (35.0-45.0); pH VBG 7.355 (7.300-7.400)
[2024-08-19 06:16] LABS: Device BIPAP; Expiratory Pressure 6 cmH2O; Inspiratory Pressure 12 cmH2O
[2024-08-19 06:18] LABS: Alanine Aminotransferase 15 U/L (6-35); Albumin Level 3.9 g/dL (3.5-5.1); Alkaline Phosphatase 99 U/L (38-126); Anion Gap 9 mmol/L (4-12); Aspartate Amino Transferase 19 U/L (14-36); Bilirubin,Total 0.5 mg/dL (0.2-1.3); Blood Urea Nitrogen 12 mg/dL (7-17); Carbon Dioxide 26 mmol/L (22-30); Chloride 103 mmol/L (98-107); Estimated CRCL calculation 61 ml/min; Estimated Glomerular Filt Rate > 60; Glucose 175 mg/dL (65-110); Magnesium 1.9 mg/dL (1.6-2.3); Potassium 3.3 mmol/L (3.4-5.0); Sodium 138 mmol/L (137-145)
[2024-08-19 06:22] LABS: INR 1.1; Prothrombin Time 14.3 Seconds (11.1-14.7)
[2024-08-19 06:23] LABS: Partial Thromboplastin Time 26.3 Seconds (22.3-36.8)
[2024-08-19 06:30] LABS: NT Pro B Type Natriuretic Pept 2160 pg/mL (19.9-100); Troponin I < 0.012 ng/mL (0.000-0.034)
[2024-08-19] MEDS: FUROSEMIDE INJ 40 MG/4 ML VIAL IV PUSH ×2 (06:44→14:45)
[2024-08-19 06:54] LABS: Influenza A QL RT-PCR Negative (Negative); Influenza B QL RT-PCR Negative (Negative); RSV RNA, RT-PCR Negative (Negative); SARS-CoV-2 RNA PCR Negative (Negative)
[2024-08-19] MEDS: POTASSIUM CHLORIDE 20 MEQ ER TABLET PO (06:57)
--- NOTE | 2024-08-19 10:49 | PC.NURSE ---
Arrived to the floor at approximately 0749am via stretcher from the ER with a student nurse, RN who provided report and RT. RT took the patient off of the BIPAP at this time and placed her on 2L/NC. Patient is alert and oriented to self and place at this time. She is noted to be a poor historian and states ask my daughter all questions . There is a small wound noted in coccyx area that is draining a foul smelling liquid. The dressing is saturated and this RN removed the dressing at this time. Discussed plan of care with patient and daughter that we would consult wound care related to said wound and patient colostomy. Family member verbalizes understanding. This RN also showed the family the dressing that was noted to be changed last on 08/17/2024. The wound is very clean, there is not redness noted around the wound on coccyx at this time. Suprapubic catheter is in place. Per patient family the catheter was changed by urology last week. No acute distress noted, adjunct mathematics instructor placed on patient, gown changed and vital signs obtained and noted to be WNL.
[2024-08-19 11:23] LABS: Glucose Point of Care 156 mg/dl (65-105)
--- NOTE | 2024-08-19 13:02 | PM.IMHP ---
H&P: HPI History of Present Illness Date/Time: 08/19/24 13:02 Chief Complaint: SOB Narrative: Patient with history of chronic hypoxic respiratory failure on 2 L oxygen at SNF, COPD, CHF prednisone so fibrillation, functional quadriplegic, 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 EMS was called patient received breathing treatment. She was brought to hospital for further management. Patient denies any chest pain, abdominal pain going to the lung compared of bilateral leg swelling. To the concern for pneumonia right upper lobe. COVID / flu negative. Treatment started with azithromycin and Rocephin. Patient was admitted for management . Lab test WBC 14.9, hemoglobin 14.1 sodium 138, potassium 3.3, creatinine 0.6, proBNP 2160 Review of Systems Review of Systems: All systems reviewed & are unremarkable except as noted in HPI and below PMFSH Past Medical History Medical History Chronic anticoagulation Paroxysmal atrial fibrillation Obstructive sleep apnea Noncompliant with CPAP. Transient ischemic attack Gastroesophageal reflux disease Familial spastic paraplegia Glaucoma History of pulmonary embolism Multiple sclerosis Suprapubic catheter in place. 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 History of suprapubic catheter History of hysterectomy Family History Family History Father Spastic paralysis Mother Breast cancer Social History Social History Social History: Surrogate medical decision maker: Ange Reyes or Nancy Alvaro, daughters. Code status: Full code. Smoking status: Never smoker Second hand tobacco smoke exposure: No Alcohol intake: never Substance use: never Substance use type: does not use Do You Feel Safe in your Home?: Yes Lack of Transportation: No Lack of Food: Never True Current Housing: I Have Housing Concerned About Future Housing: No Difficulty Paying Gas/Electric Bills: No Difficulty Paying for Meds: No Currently Unemployed: No Education: High School Diploma/GED Difficulty w/ Childcare or Family Care: No Living arrangements: penitentiary Additional living arrangements comments: [facility]. Has 3 daughters. 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 Spiritual care concerns: No Meds Home Medications and Allergies Home Medications ?Medication ?Instructions ?Recorded ?Confirmed ?Type apixaban 5 mg tablet (Eliquis) 5 mg PO BID 03/11/22 08/19/24 History cranberry extract 425 mg capsule 425 mg PO DAILY 03/11/22 08/19/24 History dorzolamide 2 % eye drops 2 drp EACH EYE TID 03/11/22 08/19/24 History flecainide 50 mg tablet 50 mg PO BID 03/11/22 08/19/24 History levothyroxine 75 mcg tablet 75 mcg PO DAILY 03/11/22 08/19/24 History nitroglycerin 0.4 mg sublingual 0.4 mg sublingual PRN PRN Chest 03/11/22 08/19/24 History tablet Pain rosuvastatin 10 mg tablet 10 mg PO HS 03/11/22 08/19/24 History arginine-vitamin C-vitamin E oral 1 g PO BID 10/28/22 08/19/24 History 4.5 gram-156 mg/9.2 gram powder pkt (Arginaid) escitalopram oxalate 10 mg tablet 10 mg PO QHS 10/28/22 08/19/24 History furosemide 40 mg tablet 40 mg PO DAILY #30 tabs 11/01/22 08/19/24 Rx acetaminophen 500 mg capsule 1,000 mg PO Q6H PRN pain 11/03/22 08/19/24 History bromfenac 0.09 % eye drops 1 drp RIGHT EYE HS 11/03/22 08/19/24 History melatonin 5 mg tablet 5 mg PO HS #30 tabs 11/06/22 08/19/24 Rx Saccharomyces boulardii 250 mg 250 mg PO BID 05/11/23 08/19/24 History capsule (Florastor) acetic acid 0.25 % irrigation 30 ml irrigation EVERY OTHER DAY 05/11/23 08/19/24 History solution hyoscyamine sulfate 0.125 mg tablet 0.125 mg PO BID PRN cramping 05/11/23 08/19/24 History nystatin 100,000 unit/gram topical 1 applic topical BID 05/11/23 08/19/24 History cream ciclopirox 0.77 % topical gel 1 applic topical HS 11/13/23 08/19/24 History pantoprazole 40 mg tablet,delayed 40 mg PO DAILY 11/13/23 08/19/24 History release albuterol sulfate 90 mcg/actuation 2 puff inhalation PRN asthma 05/19/24 08/19/24 History aerosol inhaler ferrous sulfate 325 mg (65 mg 325 mg PO BID 05/19/24 08/19/24 History iron) tablet (Kassie-Time) insulin glargine 100 unit/mL (3 22 unit subcut QPM 05/19/24 08/19/24 History mL) subcutaneous pen (Lantus Solostar U-100 Insulin) insulin glargine 100 unit/mL 25 unit subcut DAILY 05/19/24 08/19/24 History subcutaneous solution (Lantus U-100 Insulin) insulin lispro 10 unit subcut TID 05/19/24 08/19/24 History insulin lispro 100 unit/mL 1 sliding scale dose subcut TID 05/19/24 08/19/24 History subcutaneous pen (Humalog KwikPen (U-100) Insulin) triamcinolone acetonide 0.1 % 1 applic topical BID PRN rash 05/19/24 08/19/24 History topical cream ketoconazole 2 % topical cream 1 applic topical BID 05/20/24 08/19/24 History levothyroxine 150 mcg tablet 150 mcg PO .friday05/20/24 08/19/24 History loratadine 10 mg tablet 10 mg PO QHS #20 tabs 05/28/24 08/19/24 Rx ipratropium 0.5 mg-albuterol 3 mg 3 ml inhalation TID 06/03/24 08/19/24 History (2.5 mg base)/3 mL nebulization soln levothyroxine 75 mcg tablet 150 mcg PO DAILY 06/03/24 08/19/24 History silver sulfadiazine 1 % topical 1 applic topical DAILY 06/03/24 08/19/24 History cream Allergies Allergy/AdvReac Type Severity Reaction Status Date / Time black pepper Allergy Unknown Verified 11/18/23 11:20 diltiazem Allergy Unknown Verified 11/18/23 11:20 donepezil Allergy Unknown Verified 11/18/23 11:20 fluticasone Allergy Unknown Verified 11/18/23 11:20 metformin Allergy Unknown Verified 11/18/23 11:20 Vital Signs Vital Signs - 24 hr 08/19/24 05:44 08/19/24 06:09 08/19/24 06:17 Temperature Pulse Rate 117 H 129 H Respiratory Rate 16 23 H Blood Pressure 113/64 Pulse Oximetry 92 95 99 Oxygen Delivery Nasal Cannula BiPAP BiPAP Oxygen Flow Rate 4 08/19/24 06:38 08/19/24 06:41 08/19/24 07:40 Temperature 98.6 F Pulse Rate 101 H 96 95 Respiratory Rate 20 22 H 26 H Blood Pressure 113/64 113/64 Pulse Oximetry 99 99 100 Oxygen Delivery BiPAP Oxygen Flow Rate 08/19/24 07:55 08/19/24 08:05 08/19/24 08:26 Temperature 98.3 F 98.3 F Pulse Rate 89 91 89 Respiratory Rate 20 20 20 Blood Pressure 131/54 L 131/54 L Pulse Oximetry 96 93 96 Oxygen Delivery Nasal Cannula Oxygen Flow Rate 2 08/19/24 10:07 08/19/24 11:36 Temperature 98.1 F Pulse Rate 80 Respiratory Rate 18 Blood Pressure 149/61 H Pulse Oximetry 95 97 Oxygen Delivery Nasal Cannula Oxygen Flow Rate 2 Exam Narrative: GENERAL: Elderly and ill appearing, moderate to severe respiratory distress. HEAD: [Normocephalic, atraumatic.] EYES: [PERRLA and EOMI.] ENT: Nares clear, no rhinorrhea or epistaxis. Mucous membranes moist. NECK: Supple. CHEST: Coarse bibasilar breath sounds, no wheezing or prolonged expiratory phase. Rales throughout all lung dave. HEART: [Regular rate and rhythm]. No murmur heard. [Normal peripheral pulses.] ABDOMEN: [Soft, nondistended], [nontender], [No rigidity or guarding] ileostomy tube with green/brown output. Suprapubic catheter intact without any overlying skin changes EXTREMITIES: Normal range of motion. 2+ pitting edema SKIN: Warm, dry, no rash. NEURO: At baseline mentation, no new focal deficits PSYCH: [Normal mood and affect.] H&P: Results Labs Labs: Short CBC 08/19/24 Range/Units 06:02 WBC 14.9 H (4.5-10.0) K/mm3 Hgb 14.1 (12.0-15.0) g/dL Hct 44.9 (37.0-47.0) % Plt Count 261 (150-375) k/mm3 BMP 08/19/24 06:02 Sodium 138 Potassium 3.3 L Chloride 103 Carbon Dioxide 26 BUN 12 Creatinine 0.60 L Glucose 175 H Calcium 10.0 Cardiac Enzymes 08/19/24 Range/Units 06:02 Troponin I < 0.012 (0.000-0.034) ng/mL Liver Function 08/19/24 Range/Units 06:02 Total Bilirubin 0.5 (0.2-1.3) mg/dL AST 19 (14-36) U/L ALT 15 (6-35) U/L Alkaline Phosphatase 99 (38-126) U/L Albumin 3.9 (3.5-5.1) g/dL Assessment and Plan Assessment and plan (1) Acute hypoxic on chronic hypercapnic respiratory failure: Code(s): J96.01 - Acute respiratory failure with hypoxia; J96.12 - Chronic respiratory failure with hypercapnia Status: Acute Assessment and Plan: possible pneumonia vs diastolic CHF exacerbation, concern for aspiration pneumonia PCR Neg Continue with Rocephin and azithromycin. Iv Laisx Tele monitoring Daily weight I/O MANAGER TRADE MARKETING on board plan for swallow evaluation (2) Nosocomial pneumonia: Code(s): J18.9 - Pneumonia, unspecified organism; Y95 - Nosocomial condition Status: Acute Assessment and Plan: Continue Rocephin azithromycin Will get sputum culture (3) Acute exacerbation of CHF (congestive heart failure): Qualifiers: Heart failure type: unspecified Qualified Code(s): I50.9 - Heart failure, unspecified Code(s): I50.9 - Heart failure, unspecified Status: Acute Assessment and Plan: Will start IV Lasix Daily weight Intake and otput (4) Congestive heart failure: Code(s): I50.9 - Heart failure, unspecified Status: Acute Assessment and Plan: As above (5) Type 2 diabetes mellitus with diabetic polyneuropathy: Code(s): E11.42 - Type 2 diabetes mellitus with diabetic polyneuropathy Status: Acute Assessment and Plan: SSI and accucheck lantus (6) Paroxysmal atrial fibrillation: Code(s): I48.0 - Paroxysmal atrial fibrillation Status: Acute Assessment and Plan: Eliquis tele monitoring (7) Hypokalemia: Code(s): E87.6 - Hypokalemia Status: Acute Plan replace as needed follow BMP level Quality VTE Prophylaxis VTE prophylaxis: pharmacologic ordered
[2024-08-19 15:38] LABS: Glucose Point of Care 207 mg/dl (65-105)
[2024-08-19 15:42] LABS: Anion Gap 9 mmol/L (4-12); Blood Urea Nitrogen 12 mg/dL (7-17); Calcium 9.3 mg/dL (8.4-10.2); Carbon Dioxide 24 mmol/L (22-30); Chloride 101 mmol/L (98-107); Estimated CRCL calculation 62 ml/min; Estimated Glomerular Filt Rate > 60; Glucose 221 mg/dL (65-110); Potassium 3.5 mmol/L (3.4-5.0); Sodium 134 mmol/L (137-145)
--- NOTE | 2024-08-19 15:49 | PCSTNOTE ---
On 08/19/24, the student, Rosemarie Franco, provided care and completed [facility] documentation on this patient. I have reviewed the student's documentation and agree with the findings.
--- NOTE | 2024-08-19 15:55 | PCSTNOTE ---
Please refer to the Modified Barium Swallow Evaluation in the EMR.
[2024-08-19] MEDS: INSULIN ASPART (*BKC) 100 UNITS/ML SUB-Q ×2 (16:09)
[2024-08-19] MEDS: FERROUS SULFATE 325 MG TABLET DR PO (16:09)
[2024-08-19] MEDS: IPRATROPIUM 0.5 MG/ALBUTEROL SULFATE 2.5 MG AMPUL.NEB 3 ML INHALATION ×2 (16:11→21:27)
[2024-08-19 16:12] LABS: Hemoglobin A1C 7.1 % (<5.7)
[2024-08-19] MEDS: ACETAMINOPHEN 500 MG TABLET 1000 MG PO (16:21)
[2024-08-19] MEDS: MICONAZOLE NITRATE 2% CREAM 30 GM TUBE 1 APPLIC TOPICAL (17:43)
[2024-08-19] MEDS: ZINC OXIDE 20% OINT 30 GM TUBE 1 APPLIC TOPICAL (17:43)
[2024-08-19 18:03] LABS: Add Urine Microscopic? YES; Appearance Urine Turbid (Clear); Bacteria Urine 1+ /hpf; Bilirubin Urine Negative (Negative); Blood Urine 1+ (Negative); Color Urine Yellow (Yellow); Glucose Urine UA Negative (Negative); Ketones Urine Negative (Negative); Leukocyte Esterase Ur 3+ LEU/UL (Negative); Need Manual Microscopic Reviewed; Nitrate Urine Positive (Negative); Protein Urine Trace mg/dL (Negative); RBC Urine 0-2 /hpf (0-2); Specific Grav Ur 1.008 (1.001-1.035); Squamous Epithelial Cell Urine None Seen /hpf (Few); Uric Acid Crystals Urine Present /hpf; Urobilinogen Urine 0.2 mg/dL (<2.0); pH Urine 8.5 (5.0-9.0)
[2024-08-19 19:53] LABS: Glucose Point of Care 192 mg/dl (65-105)
[2024-08-19] MEDS: ROSUVASTATIN 10 MG TABLET PO (21:57)
[2024-08-19] MEDS: LORATADINE 10 MG TABLET PO (21:57)
[2024-08-19] MEDS: ESCITALOPRAM OXALATE 10 MG TABLET PO (21:57)
[2024-08-19] MEDS: MELATONIN 5 MG TABLET PO (21:58)
[2024-08-19] MEDS: APIXABAN 5 MG TABLET PO (21:58)
[2024-08-19] MEDS: DORZOLAMIDE HCL 2% OPHTH DROPS 2 DROP EACH EYE (21:58)
[2024-08-19] MEDS: FLECAINIDE ACETATE 50 MG TABLET PO (21:58)
[2024-08-19] MEDS: INSULIN GLARGINE (*BKC) 100 UNITS/ML 15 UNITS SUB-Q (22:00)
[2024-08-20] VITALS (27 sets, daily range): BP systolic 125–135; BP diastolic 43–87; PULSE 74–94; RESP 18–24; TEMP 36.7–36.9; O2SAT 90–99; BMI 30.6
[2024-08-20 04:45] LABS: Hematocrit 40.6 % (37.0-47.0); Hemoglobin 12.6 g/dL (12.0-15.0); Mean Corpuscular Hemoglobin 25.9 pg (26-34); Mean Corpuscular Volume 83.5 fl (80-100); Mean Platelet Volume 10.8 fl (7.4-10.4); Platelet Count Result 234 k/mm3 (150-375); Red Blood Count 4.86 M/mm3 (4.2-5.4); Red Cell Distribution Width 14.6 % (11.5-14.5); White Blood Count 13.7 K/mm3 (4.5-10.0)
[2024-08-20 04:57] LABS: Anion Gap 8 mmol/L (4-12); Blood Urea Nitrogen 12 mg/dL (7-17); Calcium 9.5 mg/dL (8.4-10.2); Carbon Dioxide 26 mmol/L (22-30); Chloride 102 mmol/L (98-107); Estimated CRCL calculation 56 ml/min; Estimated Glomerular Filt Rate > 60; Glucose 147 mg/dL (65-110); Potassium 3.4 mmol/L (3.4-5.0); Sodium 136 mmol/L (137-145)
[2024-08-20] MEDS: LEVOTHYROXINE SODIUM 75 MCG TABLET PO (05:37)
[2024-08-20] MEDS: cefTRIAXone 2 GM/NS 100 ML 2 GM/100 ML BAG IVPB (05:39)
[2024-08-20 07:08] LABS: Glucose Point of Care 138 mg/dl (65-105)
[2024-08-20] MEDS: APIXABAN 5 MG TABLET PO ×2 (08:15→20:50)
[2024-08-20] MEDS: FERROUS SULFATE 325 MG TABLET DR PO ×2 (08:15→16:19)
[2024-08-20] MEDS: FLECAINIDE ACETATE 50 MG TABLET PO ×2 (08:15→20:50)
[2024-08-20] MEDS: INSULIN GLARGINE (*BKC) 100 UNITS/ML 15 UNITS SUB-Q ×2 (08:16→21:12)
[2024-08-20] MEDS: INSULIN ASPART (*BKC) 100 UNITS/ML SUB-Q ×3 (08:16→16:20)
[2024-08-20] MEDS: AZITHROMYCIN 500 MG/NS 250 ML 500 MG/250 ML BAG 250 MG IVPB (08:20)
[2024-08-20] MEDS: DORZOLAMIDE HCL 2% OPHTH DROPS 2 DROP EACH EYE ×3 (08:24→20:51)
[2024-08-20] MEDS: ZINC OXIDE 20% OINT 30 GM TUBE 1 APPLIC TOPICAL ×2 (08:24→16:19)
[2024-08-20] MEDS: MICONAZOLE NITRATE 2% CREAM 30 GM TUBE 1 APPLIC TOPICAL ×2 (08:24→16:19)
[2024-08-20] MEDS: SILVER SULFADIAZINE 1% CR 50 GM JAR (*BKC) 1 APPLIC TOPICAL (08:29)
[2024-08-20] MEDS: IPRATROPIUM 0.5 MG/ALBUTEROL SULFATE 2.5 MG AMPUL.NEB 3 ML INHALATION ×3 (09:02→20:25)
[2024-08-20] MEDS: ONDANSETRON INJ 4 MG/2 ML VIAL IV PUSH (10:36)
[2024-08-20] MEDS: POTASSIUM CHLORIDE 20 MEQ PACKET (FOR LIQUID) 40 MEQ PO (10:36)
[2024-08-20 11:19] LABS: Glucose Point of Care 158 mg/dl (65-105)
--- NOTE | 2024-08-20 14:44 | P.PNIM_ITS ---
Progress Note: A&P Assessment and Plan (1) Nosocomial pneumonia: Code(s): J18.9 - Pneumonia, unspecified organism; Y95 - Nosocomial condition Status: Acute Assessment and Plan: Admit to med tele Cultures in progress BC negative Started nosocomial pneumonia antibiotic by antibiotic stewardship Supportive care -pt was just here with the same symptoms- will switch antibiotics to Cefepime 2gm q12h continue azithromycin 500 mg daily MRSA neg- so will stop vanc Contninue zithromyacin- last dose 06/06 2100 cefepime 2gm q12h (started on 06/03) -downgrade to PO today (2) Hypoxic respiratory failure: Code(s): J96.91 - Respiratory failure, unspecified with hypoxia Status: Acute Assessment and Plan: Patient on 2 L of oxygen by nasal cannula continue to monitor resp status try to wean off oxygen if able (3) Congestive heart failure: Code(s): I50.9 - Heart failure, unspecified Status: Acute Assessment and Plan: Monitor daily intake and output Diurese as needed i/o reviewed stable (4) Paroxysmal atrial fibrillation: Code(s): I48.0 - Paroxysmal atrial fibrillation Status: Acute Assessment and Plan: Rate controlled and anticoagulated (5) GERD (gastroesophageal reflux disease): Code(s): K21.9 - Gastro-esophageal reflux disease without esophagitis Status: Acute Assessment and Plan: PPI-stable (6) Ileostomy in place: Code(s): Z93.2 - Ileostomy status Status: Acute Assessment and Plan: Ileostomy care (7) Chronic indwelling Schmitt catheter: Code(s): Z97.8 - Presence of other specified devices Status: Acute Assessment and Plan: Catheter care (8) CATY (obstructive sleep apnea): Code(s): G47.33 - Obstructive sleep apnea (adult) (pediatric) Status: Acute Assessment and Plan: CPAP at nighttime (9) Type 2 diabetes mellitus: Qualifiers: Diabetes mellitus skilled nursing insulin use: with buttermaker helper use Diabetes mellitus complication status: without complication Qualified Code(s): E11.9 - Type 2 diabetes mellitus without complications; Z79.4 - MCFP (current) use of insulin Code(s): E11.9 - Type 2 diabetes mellitus without complications Status: Acute Assessment and Plan: Resume home meds lantus 22 units hs, aspart 10 units tid with meals hypoglycemia protocol AccuCheck ac/hs BS reviewed- stable Time Spent With Patient Time with patient: 25 - 35 minutes Subjective Date/time seen: 08/20/24 14:44 Interval history: per HPI: Patient with history of chronic hypoxic respiratory failure on 2 L oxygen at SNF, COPD, CHF prednisone so fibrillation, functional quadriplegic, 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 EMS was called patient received breathing treatment. She was brought to hospital for further management. Patient denies any chest pain, abdominal pain going to the lung compared of bilateral leg swelling. To the concern for pneumonia right upper lobe. COVID / flu negative. Treatment started with azithromycin and Rocephin. Patient was admitted for management . Lab test WBC 14.9, hemoglobin 14.1 sodium 138, potassium 3.3, creatinine 0.6, proBNP 2160 08/20/24 Patient was seen and examined at bedside. Still has shortness of breath. denies any chest pain, abdominal pain, nausea vomiting. Review of Systems Review of Systems: Shortness of breath, productive cough Cardiovascular: Cardiovascular: Denies chest pain Respiratory: Respiratory: Reports chest congestion and Reports cough Gastrointestinal: Gastrointestinal: Denies abdominal pain and Reports nausea Psychiatric: Psychiatric: Denies anxiety Exam Narrative: Patient is laying in a stretcher Const: General: comfortable, no acute distress, well developed, alert, awake, ill appearing chronically and average body habitus Nutritional Appearance: average body habitus Orientation/consciousness: patient oriented x3 Other: Nasal cannula on HENMT: Head: normal to inspection, normocephalic and atraumatic Ears: hearing grossly normal bilaterally Face/Nose/Sinus: normal facial exam Face and sinus: normal facial exam Eyes: General: appearance normal, both eyes and all related structures Pupils: Equal, round and reactive pupils present EOM: EOMs intact bilaterally Neck: Neck: full ROM, no lymphadenopathy and no JVD Thyroid: thyroid normal Lymphatic: no lymphadenopathy noted Resp: Effort & Inspection: normal respiratory effort and able to speak in complete sentences Auscultation: clear to auscultation bilaterally, crackles, rales and wheezes Cardio: Jugular venous distension: no JVD Rate: regular rate Rhythm: regular rhythm Heart sounds: S1 normal heart sound present and S2 normal heart sound present GI: Inspection: other (Ileostomy in place) : General: Yes deferred Skin: Rashes: no rashes Wounds: no wounds Neuro: General: patient oriented x3, CN's II-XI intact bilaterally and Unable to assess gait Cranial nerves: Yes CN's II-XII intact bilaterally and Yes Equal, round and reactive pupils present Cognition (Neuro): normal cognition Speech: normal speech Gait exam (Neuro): Normal gait present and Unable to assess gait Motor exam (neuro): 5/5 motor strength present throughout Other: Patient is functional quadriplegic Extrem: General: normal to inspection, full ROM, no joint enlargement, no pedal edema and edema bilateral (1+) Other: Unna boots in place Objective Data Vital Signs Vital Signs: Vital Signs - 24 hr 08/19/24 15:48 08/19/24 16:00 08/19/24 16:00 Temperature 98.3 F Pulse Rate 80 78 80 Respiratory Rate 20 18 Blood Pressure 151/62 H Pulse Oximetry 95 95 Oxygen Delivery Nasal Cannula Oxygen Flow Rate 2 Fraction of Inspired Oxygen 08/19/24 16:12 08/19/24 16:21 08/19/24 17:53 Temperature Pulse Rate 77 80 77 Respiratory Rate 18 18 Blood Pressure Pulse Oximetry Oxygen Delivery Oxygen Flow Rate Fraction of Inspired Oxygen 08/19/24 19:54 08/19/24 20:00 08/19/24 20:00 Temperature 98.4 F Pulse Rate 75 75 76 Respiratory Rate 22 H 22 H Blood Pressure 126/40 L Pulse Oximetry 95 95 Oxygen Delivery Nasal Cannula Oxygen Flow Rate 2 Fraction of Inspired Oxygen 08/19/24 21:27 08/19/24 21:45 08/19/24 21:45 Temperature Pulse Rate 72 76 Respiratory Rate 18 18 Blood Pressure Pulse Oximetry 98 Oxygen Delivery Nasal Cannula Oxygen Flow Rate 2 Fraction of Inspired Oxygen 08/19/24 22:00 08/19/24 23:58 08/20/24 00:00 Temperature 98.1 F Pulse Rate 74 77 77 Respiratory Rate 20 20 Blood Pressure 139/46 L Pulse Oximetry 91 91 Oxygen Delivery Nasal Cannula Oxygen Flow Rate 2 Fraction of Inspired Oxygen 08/20/24 00:00 08/20/24 00:00 08/20/24 02:00 Temperature Pulse Rate 74 74 74 Respiratory Rate Blood Pressure Pulse Oximetry Oxygen Delivery Oxygen Flow Rate Fraction of Inspired Oxygen 08/20/24 04:00 08/20/24 04:00 08/20/24 04:00 Temperature 98.2 F Pulse Rate 77 74 Respiratory Rate 20 Blood Pressure 129/43 L Pulse Oximetry 95 94 Oxygen Delivery Nasal Cannula Oxygen Flow Rate 2 Fraction of Inspired Oxygen 08/20/24 05:45 08/20/24 05:50 08/20/24 06:00 Temperature Pulse Rate 81 74 Respiratory Rate 23 H Blood Pressure Pulse Oximetry 99 90 Oxygen Delivery BiPAP BiPAP Oxygen Flow Rate Fraction of Inspired Oxygen 50 08/20/24 07:00 08/20/24 07:34 08/20/24 08:00 Temperature 98.0 F Pulse Rate 75 Respiratory Rate 18 Blood Pressure 128/51 L Pulse Oximetry 98 97 92 Oxygen Delivery Nasal Cannula Nasal Cannula Oxygen Flow Rate 2 2 Fraction of Inspired Oxygen 08/20/24 08:00 08/20/24 09:00 08/20/24 09:02 Temperature Pulse Rate 77 81 Respiratory Rate 24 H Blood Pressure Pulse Oximetry 97 93 Oxygen Delivery BiPAP Nasal Cannula Oxygen Flow Rate 2 Fraction of Inspired Oxygen 08/20/24 09:02 08/20/24 10:00 08/20/24 11:36 Temperature 98.0 F Pulse Rate 83 88 85 Respiratory Rate 22 H 22 H Blood Pressure 135/56 L Pulse Oximetry 92 Oxygen Delivery Oxygen Flow Rate Fraction of Inspired Oxygen 08/20/24 12:00 08/20/24 12:00 08/20/24 14:00 Temperature Pulse Rate 84 81 Respiratory Rate Blood Pressure Pulse Oximetry 93 Oxygen Delivery Nasal Cannula Oxygen Flow Rate 2 Fraction of Inspired Oxygen Intake/Output Intake/Output: Intake & Output 08/17/24 08/18/24 08/19/24 08/20/24 23:59 23:59 23:59 23:59 Intake Total 730 1330 Output Total 1500 500 Balance -770 830 Meds/Results Medications: Active Medications Generic Name Dose Route Start Last Admin Trade Name Freq PRN Reason Stop Dose Admin Acetaminophen 1,000 mg 08/19/24 14:15 08/19/24 16:21 Acetaminophen 500 Mg Tablet PO 1,000 mg Q6H PRN Administration pain Acetic Acid 30 ml 08/20/24 16:00 Acetic Acid 0.25% Irrig Soln 500 Ml IRRIGATION Q48H KATHARINE Albuterol/Ipratropium 3 ml 08/19/24 14:00 08/20/24 09:02 Ipratropium 0.5 Mg/Albuterol Sulfate 2.5 Mg Ampul.Neb 3 Ml INHALATION 3 ml TIDRT KATHARINE Administration Apixaban 5 mg 08/19/24 21:00 08/20/24 08:15 Apixaban 5 Mg Tablet PO 5 mg Q12HR KATHARINE Administration Dextrose 12.5 gm 08/19/24 11:52 Dextrose 50% 25 Gm/50 Ml Syringe IV PUSH PRN PRN Hypoglycemia Protocol Dorzolamide HCl 2 drop 08/19/24 21:00 08/20/24 12:15 Dorzolamide Hcl 2% Ophth Drops EACH EYE 2 drop 0900,1200,2100 KATHARINE Administration Escitalopram Oxalate 10 mg 08/19/24 21:00 08/19/24 21:57 Escitalopram Oxalate 10 Mg Tablet PO 10 mg QHS KATHARINE Administration Ferrous Sulfate 325 mg 08/19/24 17:00 08/20/24 08:15 Ferrous Sulfate [address] PO 325 mg BIDWM KATHARINE Administration Flecainide Acetate 50 mg 08/19/24 21:00 08/20/24 08:15 Flecainide Acetate 50 Mg Tablet PO 50 mg Q12HR KATHARINE Administration Glucagon 1 mg 08/19/24 11:52 Glucagon For Inj 1 Mg Vial IM PRN PRN Hypoglycemia Protocol Glucose 15 gm 08/19/24 11:52 Glucose Oral Gel 15 Gm Of Glucse In 37.5 Gm Tube PO PRN PRN Hypoglycemia Protocol Guaifenesin 600 mg 08/20/24 21:00 Guaifenesin 12 Hr 600 Mg Tabcr PO Q12HR KATHAIRNE Azithromycin 500 mg in 250 mls @ 250 mls/hr 08/20/24 09:00 08/20/24 10:42 Zithromax IVPB Infused Q24H KATHARINE Infusion Ceftriaxone Sodium 2 gm in 100 mls @ 200 mls/hr 08/20/24 06:30 08/20/24 06:09 Rocephin 2 Gm/Ns 100 Ml IVPB Infused Q24H KATHARINE Infusion Dextrose 1,000 mls @ 100 mls/hr 08/19/24 11:52 Dextrose 5% 1,000 Ml IVPB PRN PRN Hypoglycemia Protocol Insulin Aspart 5 units 08/19/24 17:00 08/20/24 12:15 Insulin Aspart (*Bkc) 100 Units/Ml SUB-Q 5 units TIDWM KATHARINE Administration Insulin Aspart 3 - 6 units 08/19/24 17:00 08/20/24 12:16 Insulin Aspart (*Bkc) 100 Units/Ml SUB-Q Not Given TIDWM [facility] Protocol Insulin Aspart 1 - 3 units 08/19/24 21:00 08/19/24 23:10 Insulin Aspart (*Bkc) 100 Units/Ml SUB-Q Not Given HS [facility] Protocol Insulin Glargine 15 units 08/19/24 21:00 08/20/24 08:16 Insulin Glargine (*Bkc) 100 Units/Ml SUB-Q 15 units Q12HR KATHARINE Administration Levothyroxine Sodium 75 mcg 08/20/24 06:30 08/20/24 05:37 Levothyroxine Sodium 75 Mcg Tablet PO 75 mcg DAILY@0630 KATHARINE Administration Levothyroxine Sodium 75 mcg 08/22/24 06:30 Levothyroxine Sodium 75 Mcg Tablet PO Ramirez@0630 [facility] Loratadine 10 mg 08/19/24 21:00 08/19/24 21:57 Loratadine 10 Mg Tablet PO 10 mg QHS [facility] Administration Melatonin 5 mg 08/19/24 21:00 08/19/24 21:58 Melatonin 5 Mg Tablet PO 5 mg HS [facility] Administration Miconazole Nitrate 1 applic 08/19/24 17:00 08/20/24 08:24 Miconazole Nitrate 2% Cream 30 Gm Tube TOPICAL 1 applic BID KATHARINE Administration Miscellaneous Information 0 each 08/19/24 00:01 Ciclopirox 0.77 % Gel = Non Form XX 09/18/24 00:00 CLARIFY KATHARINE Nitroglycerin 0.4 mg 08/19/24 14:15 Nitroglycerin Sl 0.4 Mg Tablet SUBLINGUAL PRN PRN Chest Pain Non-Formulary Medication 1 applic 08/19/24 21:00 Ciclopirox TOPICAL 09/18/24 20:59 HS [facility] Ondansetron HCl 4 mg 08/19/24 06:47 08/20/24 10:36 Ondansetron Inj 4 Mg/2 Ml Vial IV PUSH 4 mg Q4H PRN Administration Nausea Rosuvastatin Calcium 10 mg 08/19/24 21:00 08/19/24 21:57 Rosuvastatin 10 Mg Tablet PO 10 mg HS [facility] Administration Silver Sulfadiazine 1 applic 08/20/24 09:00 08/20/24 08:29 Silver Sulfadiazine 1% Cr 50 Gm Jar (*Bkc) TOPICAL 1 applic DAILY KATHARINE Administration Triamcinolone Acetonide 1 applic 08/19/24 14:15 Triamcinolone Acet 0.1% Cream 15 Gm Tube TOPICAL BID PRN rash Zinc Oxide 1 applic 08/19/24 17:00 08/20/24 08:24 Zinc Oxide 20% Oint 30 Gm Tube TOPICAL 1 applic BID KATHARINE Administration Radiology Results: ITS Impressions Chest X-Ray 08/19/24 06:41 Impression: Probable focal hazy opacity right upper lobe. Focal pneumonia is a consideration. Mild central congestive changes. Stable mild cardiomegaly. Modified Barium Swallow 08/19/24 14:46 IMPRESSION: Mild pharyngeal dysphagia with laryngeal penetration without aspiration. Please correlate with speech pathologist findings and specific feeding recommendations. Labs Labs: Laboratory Results - last 24 hr 08/19/24 08/19/24 08/19/24 11:52 15:25 15:34 WBC RBC Hgb Hct MCV MCH MCHC RDW Plt Count MPV Sodium 134 L Potassium 3.5 Chloride 101 Carbon Dioxide 24 Anion Gap 9 BUN 12 Creatinine 0.58 L Estim Creat Clear Calc 62 Estimated GFR > 60 Glucose 221 H POC Capillary Glucose 207 H Hemoglobin A1c 7.1 H Calcium 9.3 Magnesium Urine Color Urine Appearance Urine pH Ur Specific [place] Urine Protein Urine Glucose (UA) Urine Ketones Ur Blood (Man) Urine Nitrate Urine Bilirubin Urine Urobilinogen Add Ur Microanalysis Leukocyte Esterase Rfl Urine RBC Urine WBC Ur Squamous Epith Cells Uric Acid Crystals Urine Bacteria Urine Casts 08/19/24 08/19/24 08/20/24 17:27 19:49 04:32 WBC 13.7 H RBC 4.86 Hgb 12.6 Hct 40.6 MCV 83.5 MCH 25.9 L MCHC 31.0 L RDW 14.6 H Plt Count 234 MPV 10.8 H Sodium 136 L Potassium 3.4 Chloride 102 Carbon Dioxide 26 Anion Gap 8 BUN 12 Creatinine 0.64 L Estim Creat Clear Calc 56 Estimated GFR > 60 Glucose 147 H POC Capillary Glucose 192 H Hemoglobin A1c Calcium 9.5 Magnesium 2.0 Urine Color Yellow Urine Appearance Turbid H Urine pH 8.5 Ur Specific [place] 1.008 Urine Protein Trace Urine Glucose (UA) Negative Urine Ketones Negative Ur Blood (Man) 1+ H Urine Nitrate Positive H Urine Bilirubin Negative Urine Urobilinogen 0.2 Add Ur Microanalysis Reviewed Leukocyte Esterase Rfl 3+ H Urine RBC 0-2 Urine WBC 11-20 H Ur Squamous Epith Cells None seen Uric Acid Crystals Present H Urine Bacteria 1+ H Urine Casts 3-5 08/20/24 08/20/24 07:05 11:12 WBC RBC Hgb Hct MCV MCH MCHC RDW Plt Count MPV Sodium Potassium Chloride Carbon Dioxide Anion Gap BUN Creatinine Estim Creat Clear Calc Estimated GFR Glucose POC Capillary Glucose 138 H 158 H Hemoglobin A1c Calcium Magnesium Urine Color Urine Appearance Urine pH Ur Specific [place] Urine Protein Urine Glucose (UA) Urine Ketones Ur Blood (Man) Urine Nitrate Urine Bilirubin Urine Urobilinogen Add Ur Microanalysis Leukocyte Esterase Rfl Urine RBC Urine WBC Ur Squamous Epith Cells Uric Acid Crystals Urine Bacteria Urine Casts Quality VTE Prophylaxis VTE prophylaxis: pharmacologic ordered
--- NOTE | 2024-08-20 14:55 | P.PNIM_ITS ---
Progress Note: A&P Assessment and Plan (1) Nosocomial pneumonia: Code(s): J18.9 - Pneumonia, unspecified organism; Y95 - Nosocomial condition Status: Acute Assessment and Plan: possible pneumonia vs diastolic CHF exacerbation, concern for aspiration pneumonia PCR Neg Continue with Rocephin and azithromycin. 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 (2) Hypoxic respiratory failure: Code(s): J96.91 - Respiratory failure, unspecified with hypoxia Status: Acute Assessment and Plan: Patient on 2 L of oxygen by nasal cannula continue to monitor resp status try to wean off oxygen if able (3) Congestive heart failure: Code(s): I50.9 - Heart failure, unspecified Status: Acute Assessment and Plan: Monitor daily intake and output Iv lasix i/o reviewed (4) Paroxysmal atrial fibrillation: Code(s): I48.0 - Paroxysmal atrial fibrillation Status: Acute Assessment and Plan: Rate controlled and eliquis (5) GERD (gastroesophageal reflux disease): Code(s): K21.9 - Gastro-esophageal reflux disease without esophagitis Status: Acute Assessment and Plan: PPI-stable (6) CATY (obstructive sleep apnea): Code(s): G47.33 - Obstructive sleep apnea (adult) (pediatric) Status: Acute Assessment and Plan: CPAP at nighttime (7) Type 2 diabetes mellitus: Qualifiers: Diabetes mellitus terminal clerk insulin use: with snf use Diabetes m ellitus complication status: without complication Qualified Code(s): E11.9 - Type 2 diabetes mellitus without complications; Z79.4 - [facility] (current) use of insulin Code(s): E11.9 - Type 2 diabetes mellitus without complications Status: Acute Assessment and Plan: Resume home meds , aspart5 units tid with meals hypoglycemia protocol AccuCheck ac/hs Subjective Date/time seen: 08/20/24 14:55 Interval history: per HPI: Patient with history of chronic hypoxic respiratory failure on 2 L oxygen at SNF, COPD, CHF prednisone so fibrillation, functional quadriplegic, 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 EMS was called patient received breathing treatment. She was brought to hospital for further management. Patient denies any chest pain, abdominal pain going to the lung compared of bilateral leg swelling. To the concern for pneumonia right upper lobe. COVID / flu negative. Treatment started with azithromycin and Rocephin. Patient was admitted for management . Lab test WBC 14.9, hemoglobin 14.1 sodium 138, potassium 3.3, creatinine 0.6, proBNP 2160 08/20/24 Patient was seen and examined at bedside. Still has shortness of breath. denies any chest pain, abdominal pain, nausea vomiting. Continue with IV antibiotics. Continue with Lasix Review of Systems Review of Systems: Shortness of breath, productive cough All systems reviewed & are unremarkable except as noted in HPI and below Exam Narrative: GENERAL: Elderly and ill appearing, HEAD: [Normocephalic, atraumatic.] EYES: [PERRLA and EOMI.] ENT: Nares clear, no rhinorrhea or epistaxis. Mucous membranes moist. NECK: Supple. CHEST: Coarse bibasilar breath sounds, no wheezing or prolonged expiratory phase. Rales throughout all lung dave. HEART: [Regular rate and rhythm]. No murmur heard. [Normal peripheral pulses.] ABDOMEN: [Soft, nondistended], [nontender], [No rigidity or guarding] ileostomy tube with green/brown output. Suprapubic catheter intact without any overlying skin changes EXTREMITIES: Normal range of motion. 2+ pitting edema SKIN: Warm, dry, no rash. NEURO: At baseline mentation, no new focal deficits PSYCH: [Normal mood and affect.] Neuro: Other: Patient is functional quadriplegic Objective Data Vital Signs Vital Signs: Vital Signs - 24 hr 08/19/24 15:48 08/19/24 16:00 08/19/24 16:00 Temperature 98.3 F Pulse Rate 80 78 80 Respiratory Rate 20 18 Blood Pressure 151/62 H Pulse Oximetry 95 95 Oxygen Delivery Nasal Cannula Oxygen Flow Rate 2 Fraction of Inspired Oxygen 08/19/24 16:12 08/19/24 16:21 08/19/24 17:53 Temperature Pulse Rate 77 80 77 Respiratory Rate 18 18 Blood Pressure Pulse Oximetry Oxygen Delivery Oxygen Flow Rate Fraction of Inspired Oxygen 08/19/24 19:54 08/19/24 20:00 08/19/24 20:00 Temperature 98.4 F Pulse Rate 75 75 76 Respiratory Rate 22 H 22 H Blood Pressure 126/40 L Pulse Oximetry 95 95 Oxygen Delivery Nasal Cannula Oxygen Flow Rate 2 Fraction of Inspired Oxygen 08/19/24 21:27 08/19/24 21:45 08/19/24 21:45 Temperature Pulse Rate 72 76 Respiratory Rate 18 18 Blood Pressure Pulse Oximetry 98 Oxygen Delivery Nasal Cannula Oxygen Flow Rate 2 Fraction of Inspired Oxygen 08/19/24 22:00 08/19/24 23:58 08/20/24 00:00 Temperature 98.1 F Pulse Rate 74 77 77 Respiratory Rate 20 20 Blood Pressure 139/46 L Pulse Oximetry 91 91 Oxygen Delivery Nasal Cannula Oxygen Flow Rate 2 Fraction of Inspired Oxygen 08/20/24 00:00 08/20/24 00:00 08/20/24 02:00 Temperature Pulse Rate 74 74 74 Respiratory Rate Blood Pressure Pulse Oximetry Oxygen Delivery Oxygen Flow Rate Fraction of Inspired Oxygen 08/20/24 04:00 08/20/24 04:00 08/20/24 04:00 Temperature 98.2 F Pulse Rate 77 74 Respiratory Rate 20 Blood Pressure 129/43 L Pulse Oximetry 95 94 Oxygen Delivery Nasal Cannula Oxygen Flow Rate 2 Fraction of Inspired Oxygen 08/20/24 05:45 08/20/24 05:50 08/20/24 06:00 Temperature Pulse Rate 81 74 Respiratory Rate 23 H Blood Pressure Pulse Oximetry 99 90 Oxygen Delivery BiPAP BiPAP Oxygen Flow Rate Fraction of Inspired Oxygen 50 08/20/24 07:00 08/20/24 07:34 08/20/24 08:00 Temperature 98.0 F Pulse Rate 75 Respiratory Rate 18 Blood Pressure 128/51 L Pulse Oximetry 98 97 92 Oxygen Delivery Nasal Cannula Nasal Cannula Oxygen Flow Rate 2 2 Fraction of Inspired Oxygen 08/20/24 08:00 08/20/24 09:00 08/20/24 09:02 Temperature Pulse Rate 77 81 Respiratory Rate 24 H Blood Pressure Pulse Oximetry 97 93 Oxygen Delivery BiPAP Nasal Cannula Oxygen Flow Rate 2 Fraction of Inspired Oxygen 08/20/24 09:02 08/20/24 10:00 08/20/24 11:36 Temperature 98.0 F Pulse Rate 83 88 85 Respiratory Rate 22 H 22 H Blood Pressure 135/56 L Pulse Oximetry 92 Oxygen Delivery Oxygen Flow Rate Fraction of Inspired Oxygen 08/20/24 12:00 08/20/24 12:00 08/20/24 14:00 Temperature Pulse Rate 84 81 Respiratory Rate Blood Pressure Pulse Oximetry 93 Oxygen Delivery Nasal Cannula Oxygen Flow Rate 2 Fraction of Inspired Oxygen Intake/Output Intake/Output: Intake & Output 08/17/24 08/18/24 08/19/24 08/20/24 23:59 23:59 23:59 23:59 Intake Total 730 1330 Output Total 1500 500 Balance -770 830 Meds/Results Medications: Active Medications Generic Name Dose Route Start Last Admin Trade Name Freq PRN Reason Stop Dose Admin Acetaminophen 1,000 mg 08/19/24 14:15 08/19/24 16:21 Acetaminophen 500 Mg Tablet PO 1,000 mg Q6H PRN Administration pain Acetic Acid 30 ml 08/20/24 16:00 Acetic Acid 0.25% Irrig Soln 500 Ml IRRIGATION Q48H KATHARINE Albuterol/Ipratropium 3 ml 08/19/24 14:00 08/20/24 14:54 Ipratropium 0.5 Mg/Albuterol Sulfate 2.5 Mg Ampul.Neb 3 Ml INHALATION 3 ml TIDRT KATHARINE Administration Apixaban 5 mg 08/19/24 21:00 08/20/24 08:15 Apixaban 5 Mg Tablet PO 5 mg Q12HR KATHARINE Administration Dextrose 12.5 gm 08/19/24 11:52 Dextrose 50% 25 Gm/50 Ml Syringe IV PUSH PRN PRN Hypoglycemia Protocol Dorzolamide HCl 2 drop 08/19/24 21:00 08/20/24 12:15 Dorzolamide Hcl 2% Ophth Drops EACH EYE 2 drop 0900,1200,2100 KATHARINE Administration Escitalopram Oxalate 10 mg 08/19/24 21:00 08/19/24 21:57 Escitalopram Oxalate 10 Mg Tablet PO 10 mg QHS KATHARINE Administration Ferrous Sulfate 325 mg 08/19/24 17:00 08/20/24 08:15 Ferrous Sulfate [address] PO 325 mg BIDWM KATHARINE Administration Flecainide Acetate 50 mg 08/19/24 21:00 08/20/24 08:15 Flecainide Acetate 50 Mg Tablet PO 50 mg Q12HR KATHARINE Administration Glucagon 1 mg 08/19/24 11:52 Glucagon For Inj 1 Mg Vial IM PRN PRN Hypoglycemia Protocol Glucose 15 gm 08/19/24 11:52 Glucose Oral Gel 15 Gm Of Glucse In 37.5 Gm Tube PO PRN PRN Hypoglycemia Protocol Guaifenesin 600 mg 08/20/24 21:00 Guaifenesin 12 Hr 600 Mg Tabcr PO Q12HR KATHARINE Azithromycin 500 mg in 250 mls @ 250 mls/hr 08/20/24 09:00 08/20/24 10:42 Zithromax IVPB Infused Q24H KATHARINE Infusion Ceftriaxone Sodium 2 gm in 100 mls @ 200 mls/hr 08/20/24 06:30 08/20/24 06:09 Rocephin 2 Gm/Ns 100 Ml IVPB Infused Q24H KATHARINE Infusion Dextrose 1,000 mls @ 100 mls/hr 08/19/24 11:52 Dextrose 5% 1,000 Ml IVPB PRN PRN Hypoglycemia Protocol Insulin Aspart 5 units 08/19/24 17:00 08/20/24 12:15 Insulin Aspart (*Bkc) 100 Units/Ml SUB-Q 5 units TIDWM [facility] Administration Insulin Aspart 3 - 6 units 08/19/24 17:00 08/20/24 12:16 Insulin Aspart (*Bkc) 100 Units/Ml SUB-Q Not Given TIDWM [facility] Protocol Insulin Aspart 1 - 3 units 08/19/24 21:00 08/19/24 23:10 Insulin Aspart (*Bkc) 100 Units/Ml SUB-Q Not Given HS [facility] Protocol Insulin Glargine 15 units 08/19/24 21:00 08/20/24 08:16 Insulin Glargine (*Bkc) 100 Units/Ml SUB-Q 15 units Q12HR KATHARINE Administration Levothyroxine Sodium 75 mcg 08/20/24 06:30 08/20/24 05:37 Levothyroxine Sodium 75 Mcg Tablet PO 75 mcg DAILY@0630 [facility] Administration Levothyroxine Sodium 75 mcg 08/22/24 06:30 Levothyroxine Sodium 75 Mcg Tablet PO Ramirez@0630 [facility] Loratadine 10 mg 08/19/24 21:00 08/19/24 21:57 Loratadine 10 Mg Tablet PO 10 mg QHS [facility] Administration Melatonin 5 mg 08/19/24 21:00 08/19/24 21:58 Melatonin 5 Mg Tablet PO 5 mg HS [facility] Administration Miconazole Nitrate 1 applic 08/19/24 17:00 08/20/24 08:24 Miconazole Nitrate 2% Cream 30 Gm Tube TOPICAL 1 applic BID [facility] Administration Miscellaneous Information 0 each 08/19/24 00:01 Ciclopirox 0.77 % Gel = Non Form XX 09/18/24 00:00 CLARIFY KATHARINE Nitroglycerin 0.4 mg 08/19/24 14:15 Nitroglycerin Sl 0.4 Mg Tablet SUBLINGUAL PRN PRN Chest Pain Non-Formulary Medication 1 applic 08/19/24 21:00 Ciclopirox TOPICAL 09/18/24 20:59 HS KATHARINE Ondansetron HCl 4 mg 08/19/24 06:47 08/20/24 10:36 Ondansetron Inj 4 Mg/2 Ml Vial IV PUSH 4 mg Q4H PRN Administration Nausea Rosuvastatin Calcium 10 mg 08/19/24 21:00 08/19/24 21:57 Rosuvastatin 10 Mg Tablet PO 10 mg HS KATHARINE Administration Silver Sulfadiazine 1 applic 08/20/24 09:00 08/20/24 08:29 Silver Sulfadiazine 1% Cr 50 Gm Jar (*Bkc) TOPICAL 1 applic DAILY KATHARINE Administration Triamcinolone Acetonide 1 applic 08/19/24 14:15 Triamcinolone Acet 0.1% Cream 15 Gm Tube TOPICAL BID PRN rash Zinc Oxide 1 applic 08/19/24 17:00 08/20/24 08:24 Zinc Oxide 20% Oint 30 Gm Tube TOPICAL 1 applic BID KATHARINE Administration Radiology Results: ITS Impressions Chest X-Ray 08/19/24 06:41 Impression: Probable focal hazy opacity right upper lobe. Focal pneumonia is a consideration. Mild central congestive changes. Stable mild cardiomegaly. Modified Barium Swallow 08/19/24 14:46 IMPRESSION: Mild pharyngeal dysphagia with laryngeal penetration without aspiration. Please correlate with speech pathologist findings and specific feeding recommendations. Labs Labs: Laboratory Results - last 24 hr 08/19/24 08/19/24 08/19/24 11:52 15:25 15:34 WBC RBC Hgb Hct MCV MCH MCHC RDW Plt Count MPV Sodium 134 L Potassium 3.5 Chloride 101 Carbon Dioxide 24 Anion Gap 9 BUN 12 Creatinine 0.58 L Estim Creat Clear Calc 62 Estimated GFR > 60 Glucose 221 H POC Capillary Glucose 207 H Hemoglobin A1c 7.1 H Calcium 9.3 Magnesium Urine Color Urine Appearance Urine pH Ur Specific [place] Urine Protein Urine Glucose (UA) Urine Ketones Ur Blood (Man) Urine Nitrate Urine Bilirubin Urine Urobilinogen Add Ur Microanalysis Leukocyte Esterase Rfl Urine RBC Urine WBC Ur Squamous Epith Cells Uric Acid Crystals Urine Bacteria Urine Casts 08/19/24 08/19/24 08/20/24 17:27 19:49 04:32 WBC 13.7 H RBC 4.86 Hgb 12.6 Hct 40.6 MCV 83.5 MCH 25.9 L MCHC 31.0 L RDW 14.6 H Plt Count 234 MPV 10.8 H Sodium 136 L Potassium 3.4 Chloride 102 Carbon Dioxide 26 Anion Gap 8 BUN 12 Creatinine 0.64 L Estim Creat Clear Calc 56 Estimated GFR > 60 Glucose 147 H POC Capillary Glucose 192 H Hemoglobin A1c Calcium 9.5 Magnesium 2.0 Urine Color Yellow Urine Appearance Turbid H Urine pH 8.5 Ur Specific [place] 1.008 Urine Protein Trace Urine Glucose (UA) Negative Urine Ketones Negative Ur Blood (Man) 1+ H Urine Nitrate Positive H Urine Bilirubin Negative Urine Urobilinogen 0.2 Add Ur Microanalysis Reviewed Leukocyte Esterase Rfl 3+ H Urine RBC 0-2 Urine WBC 11-20 H Ur Squamous Epith Cells None seen Uric Acid Crystals Present H Urine Bacteria 1+ H Urine Casts 3-5 08/20/24 08/20/24 07:05 11:12 WBC RBC Hgb Hct MCV MCH MCHC RDW Plt Count MPV Sodium Potassium Chloride Carbon Dioxide Anion Gap BUN Creatinine Estim Creat Clear Calc Estimated GFR Glucose POC Capillary Glucose 138 H 158 H Hemoglobin A1c Calcium Magnesium Urine Color Urine Appearance Urine pH Ur Specific [place] Urine Protein Urine Glucose (UA) Urine Ketones Ur Blood (Man) Urine Nitrate Urine Bilirubin Urine Urobilinogen Add Ur Microanalysis Leukocyte Esterase Rfl Urine RBC Urine WBC Ur Squamous Epith Cells Uric Acid Crystals Urine Bacteria Urine Casts Quality VTE Prophylaxis VTE prophylaxis: pharmacologic ordered
[2024-08-20 15:37] LABS: NT Pro B Type Natriuretic Pept 1720 pg/mL (19.9-100)
[2024-08-20 15:48] LABS: Glucose Point of Care 171 mg/dl (65-105)
[2024-08-20] MEDS: ACETIC ACID 0.25% IRRIG SOLN 500 ML 30 ML IRRIGATION (16:19)
[2024-08-20] MEDS: FUROSEMIDE INJ 40 MG/4 ML VIAL IV PUSH (16:19)
[2024-08-20 20:05] LABS: Glucose Point of Care 181 mg/dl (65-105)
[2024-08-20] MEDS: ESCITALOPRAM OXALATE 10 MG TABLET PO (20:49)
[2024-08-20] MEDS: MELATONIN 5 MG TABLET PO (20:49)
[2024-08-20] MEDS: LORATADINE 10 MG TABLET PO (20:50)
[2024-08-20] MEDS: ROSUVASTATIN 10 MG TABLET PO (20:50)
[2024-08-20] MEDS: guaiFENesin 12 HR 600 MG TABCR PO (20:50)
[2024-08-21] VITALS (24 sets, daily range): BP systolic 115–134; BP diastolic 41–93; PULSE 70–84; RESP 16–26; TEMP 36.4–36.9; O2SAT 20–96
[2024-08-21 04:51] LABS: Hematocrit 40.1 % (37.0-47.0); Hemoglobin 12.5 g/dL (12.0-15.0); Mean Corpuscular HGB Conc 31.2 g/dl (32-36); Mean Corpuscular Hemoglobin 26.3 pg (26-34); Mean Corpuscular Volume 84.4 fl (80-100); Platelet Count Result 227 k/mm3 (150-375); Red Blood Count 4.75 M/mm3 (4.2-5.4); Red Cell Distribution Width 14.4 % (11.5-14.5); White Blood Count 14.2 K/mm3 (4.5-10.0)
[2024-08-21 05:04] LABS: Anion Gap 4 mmol/L (4-12); Blood Urea Nitrogen 17 mg/dL (7-17); Calcium 9.5 mg/dL (8.4-10.2); Carbon Dioxide 28 mmol/L (22-30); Chloride 104 mmol/L (98-107); Estimated CRCL calculation 55 ml/min; Estimated Glomerular Filt Rate > 60; Glucose 158 mg/dL (65-110); Potassium 3.9 mmol/L (3.4-5.0); Sodium 136 mmol/L (137-145)
[2024-08-21] MEDS: LEVOTHYROXINE SODIUM 75 MCG TABLET PO (05:32)
[2024-08-21] MEDS: cefTRIAXone 2 GM/NS 100 ML 2 GM/100 ML BAG IVPB (05:32)
[2024-08-21 07:45] LABS: Glucose Point of Care 170 mg/dl (65-105)
--- NOTE | 2024-08-21 08:41 | P.PNIM_ITS ---
Progress Note: A&P Assessment and Plan (1) Nosocomial pneumonia: Code(s): J18.9 - Pneumonia, unspecified organism; Y95 - Nosocomial condition Status: Acute Assessment and Plan: possible pneumonia vs diastolic CHF exacerbation, concern for aspiration pneumonia check pneumonia PCR and sputum culture Continue with Rocephin and azithromycin. 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, patient passed swallow evaluation (2) Hypoxic respiratory failure: Code(s): J96.91 - Respiratory failure, unspecified with hypoxia Status: Acute Assessment and Plan: Patient on 2 L of oxygen by nasal cannula continue to monitor resp status try to wean off oxygen if able (3) Congestive heart failure: Code(s): I50.9 - Heart failure, unspecified Status: Acute Assessment and Plan: Monitor daily intake and output Iv lasix i/o reviewed (4) Paroxysmal atrial fibrillation: Code(s): I48.0 - Paroxysmal atrial fibrillation Status: Acute Assessment and Plan: Rate controlled and eliquis (5) GERD (gastroesophageal reflux disease): Code(s): K21.9 - Gastro-esophageal reflux disease without esophagitis Status: Acute Assessment and Plan: PPI-stable (6) CATY (obstructive sleep apnea): Code(s): G47.33 - Obstructive sleep apnea (adult) (pediatric) Status: Acute Assessment and Plan: CPAP at nighttime (7) Type 2 diabetes mellitus: Qualifiers: Diabetes mellitus complication status: without complication Diabetes mellitus skilled nursing insulin use: with skilled nursing use Qualified Code(s): E11.9 - Type 2 diabetes mellitus without complications; Z79.4 - nursing home (current) use of insulin Code(s): E11.9 - Type 2 diabetes mellitus without complications Status: Acute Assessment and Plan: Resume home meds , aspart5 units tid with meals hypoglycemia protocol AccuCheck ac/hs Subjective Date/time seen: 08/21/24 08:41 Interval history: per HPI: Patient with history of chronic hypoxic respiratory failure on 2 L oxygen at SNF, COPD, CHF prednisone so fibrillation, functional quadriplegic, 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 EMS was called patient received breathing treatment. She was brought to hospital for further management. Patient denies any chest pain, abdominal pain going to the lung compared of bilateral leg swelling. To the concern for pneumonia right upper lobe. COVID / flu negative. Treatment started with azithromycin and Rocephin. Patient was admitted for management . Lab test WBC 14.9, hemoglobin 14.1 sodium 138, potassium 3.3, creatinine 0.6, proBNP 2160 08/20/24 Patient was seen and examined at bedside. Still has shortness of breath. denies any chest pain, abdominal pain, nausea vomiting. Continue with IV antibiotics. Continue with Lasix 08/21/24 Patient was seen and examined at bedside. She is feeling better. Her breathing improving. Denies any chest pain, abdominal pain, nausea vomiting BP 120/48, oxygen saturation 95% on 2 L oxygen. WBC 14.2, sodium 136, potassium 3.9, creatinine 0.6 will check pneumonia PCR Review of Systems Review of Systems: Shortness of breath, productive cough All systems reviewed & are unremarkable except as noted in HPI and below Exam Narrative: GENERAL: Elderly and ill appearing, HEAD: [Normocephalic, atraumatic.] EYES: [PERRLA and EOMI.] ENT: Nares clear, no rhinorrhea or epistaxis. Mucous membranes moist. NECK: Supple. CHEST: Coarse bibasilar breath sounds, no wheezing or prolonged expiratory phase. Rales throughout all lung dave. HEART: [Regular rate and rhythm]. No murmur heard. [Normal peripheral pulses.] ABDOMEN: [Soft, nondistended], [nontender], [No rigidity or guarding] ileostomy tube with green/brown output. Suprapubic catheter intact without any overlying skin changes EXTREMITIES: Normal range of motion. 2+ pitting edema SKIN: Warm, dry, no rash. NEURO: At baseline mentation, no new focal deficits PSYCH: [Normal mood and affect.] Const: Other: Nasal cannula on Neuro: Other: Patient is functional quadriplegic Extrem: Other: Unna boots in place Objective Data Vital Signs Vital Signs: Vital Signs - 24 hr 08/20/24 09:00 08/20/24 09:02 08/20/24 09:02 Temperature Pulse Rate 81 83 Respiratory Rate 24 H 22 H Blood Pressure Pulse Oximetry 97 93 Oxygen Delivery BiPAP Nasal Cannula Oxygen Flow Rate 2 Fraction of Inspired Oxygen 08/20/24 10:00 08/20/24 11:36 08/20/24 12:00 Temperature 98.0 F Pulse Rate 88 85 Respiratory Rate 22 H Blood Pressure 135/56 L Pulse Oximetry 92 93 Oxygen Delivery Nasal Cannula Oxygen Flow Rate 2 Fraction of Inspired Oxygen 08/20/24 12:00 08/20/24 14:00 08/20/24 14:55 Temperature Pulse Rate 84 81 81 Respiratory Rate 24 H Blood Pressure Pulse Oximetry Oxygen Delivery Oxygen Flow Rate Fraction of Inspired Oxygen 08/20/24 16:00 08/20/24 16:00 08/20/24 16:11 Temperature 98.4 F Pulse Rate 82 82 Respiratory Rate 20 Blood Pressure 130/49 L Pulse Oximetry 93 96 Oxygen Delivery Nasal Cannula Oxygen Flow Rate 2 Fraction of Inspired Oxygen 08/20/24 18:00 08/20/24 18:36 08/20/24 20:00 Temperature 98.3 F Pulse Rate 86 88 89 Respiratory Rate 22 H Blood Pressure 125/87 Pulse Oximetry 96 Oxygen Delivery Oxygen Flow Rate Fraction of Inspired Oxygen 08/20/24 20:00 08/20/24 20:25 08/20/24 20:25 Temperature Pulse Rate 88 Respiratory Rate 22 H Blood Pressure Pulse Oximetry 92 94 Oxygen Delivery Nasal Cannula Nasal Cannula Oxygen Flow Rate 2 2 Fraction of Inspired Oxygen 28 08/20/24 20:34 08/20/24 20:50 08/20/24 22:00 Temperature Pulse Rate 90 93 94 Respiratory Rate 22 H Blood Pressure Pulse Oximetry Oxygen Delivery Oxygen Flow Rate Fraction of Inspired Oxygen 08/20/24 23:00 08/20/24 23:21 08/21/24 00:00 Temperature 98.5 F Pulse Rate 85 82 Respiratory Rate 23 H 18 Blood Pressure 115/51 L Pulse Oximetry 97 94 96 Oxygen Delivery BiPAP Nasal Cannula Oxygen Flow Rate 2 Fraction of Inspired Oxygen 08/21/24 00:00 08/21/24 00:00 08/21/24 02:00 Temperature Pulse Rate 80 73 Respiratory Rate Blood Pressure Pulse Oximetry 93 Oxygen Delivery Nasal Cannula Oxygen Flow Rate 2 Fraction of Inspired Oxygen 08/21/24 04:00 08/21/24 04:00 08/21/24 05:40 Temperature 98.4 F Pulse Rate 70 72 Respiratory Rate 16 Blood Pressure 131/47 L Pulse Oximetry 96 96 Oxygen Delivery Nasal Cannula Oxygen Flow Rate 2 Fraction of Inspired Oxygen 08/21/24 06:00 08/21/24 08:04 Temperature 98.1 F Pulse Rate 73 73 Respiratory Rate 20 Blood Pressure 120/48 L Pulse Oximetry 95 Oxygen Delivery Oxygen Flow Rate Fraction of Inspired Oxygen Intake/Output Intake/Output: Intake & Output 08/18/24 08/19/24 08/20/24 08/21/24 23:59 23:59 23:59 23:59 Intake Total 730 1880 340 Output Total 1500 2100 925 Balance -770 -220 -585 Meds/Results Medications: Active Medications Generic Name Dose Route Start Last Admin Trade Name Freq PRN Reason Stop Dose Admin Acetaminophen 1,000 mg 08/19/24 14:15 08/19/24 16:21 Acetaminophen 500 Mg Tablet PO 1,000 mg Q6H PRN Administration pain Acetic Acid 30 ml 08/20/24 16:00 08/20/24 16:19 Acetic Acid 0.25% Irrig Soln 500 Ml IRRIGATION 30 ml Q48H KATHARINE Administration Albuterol/Ipratropium 3 ml 08/19/24 14:00 08/20/24 20:25 Ipratropium 0.5 Mg/Albuterol Sulfate 2.5 Mg Ampul.Neb 3 Ml INHALATION 3 ml TIDRT KATHARINE Administration Apixaban 5 mg 08/19/24 21:00 08/20/24 20:50 Apixaban 5 Mg Tablet PO 5 mg Q12HR KATHARINE Administration Dextrose 12.5 gm 08/19/24 11:52 Dextrose 50% 25 Gm/50 Ml Syringe IV PUSH PRN PRN Hypoglycemia Protocol Dorzolamide HCl 2 drop 08/19/24 21:00 08/20/24 20:51 Dorzolamide Hcl 2% Ophth Drops EACH EYE 2 drop 0900,1200,2100 KATHARINE Administration Escitalopram Oxalate 10 mg 08/19/24 21:00 08/20/24 20:49 Escitalopram Oxalate 10 Mg Tablet PO 10 mg QHS KATHARINE Administration Ferrous Sulfate 325 mg 08/19/24 17:00 08/20/24 16:19 Ferrous Sulfate [address] PO 325 mg BIDWM KATHARINE Administration Flecainide Acetate 50 mg 08/19/24 21:00 08/20/24 20:50 Flecainide Acetate 50 Mg Tablet PO 50 mg Q12HR KATHARINE Administration Furosemide 40 mg 08/20/24 15:05 08/20/24 16:19 Furosemide Inj 40 Mg/4 Ml Vial IV PUSH 40 mg DAILY KATHARINE Administration Glucagon 1 mg 08/19/24 11:52 Glucagon For Inj 1 Mg Vial IM PRN PRN Hypoglycemia Protocol Glucose 15 gm 08/19/24 11:52 Glucose Oral Gel 15 Gm Of Glucse In 37.5 Gm Tube PO PRN PRN Hypoglycemia Protocol Guaifenesin 600 mg 08/20/24 21:00 08/20/24 20:50 Guaifenesin 12 Hr 600 Mg Tabcr PO 600 mg Q12HR KATHARINE Administration Azithromycin 500 mg in 250 mls @ 250 mls/hr 08/20/24 09:00 08/20/24 10:42 Zithromax IVPB Infused Q24H KATHARINE Infusion Ceftriaxone Sodium 2 gm in 100 mls @ 200 mls/hr 08/20/24 06:30 08/21/24 07:58 Rocephin 2 Gm/Ns 100 Ml IVPB Infused Q24H KATHARINE Infusion Dextrose 1,000 mls @ 100 mls/hr 08/19/24 11:52 Dextrose 5% 1,000 Ml IVPB PRN PRN Hypoglycemia Protocol Insulin Aspart 5 units 08/19/24 17:00 08/20/24 16:20 Insulin Aspart (*Bkc) 100 Units/Ml SUB-Q 5 units TIDWM KATHARINE Administration Insulin Aspart 3 - 6 units 08/19/24 17:00 08/20/24 16:04 Insulin Aspart (*Bkc) 100 Units/Ml SUB-Q Not Given TIDWM [facility] Protocol Insulin Aspart 1 - 3 units 08/19/24 21:00 08/20/24 21:03 Insulin Aspart (*Bkc) 100 Units/Ml SUB-Q Not Given HS [facility] Protocol Insulin Glargine 15 units 08/19/24 21:00 08/20/24 21:12 Insulin Glargine (*Bkc) 100 Units/Ml SUB-Q 15 units Q12HR KATHARINE Administration Levothyroxine Sodium 75 mcg 08/20/24 06:30 08/21/24 05:32 Levothyroxine Sodium 75 Mcg Tablet PO 75 mcg DAILY@0630 KATHARINE Administration Levothyroxine Sodium 75 mcg 08/22/24 06:30 Levothyroxine Sodium 75 Mcg Tablet PO Ramirez@0630 KATHARINE Loratadine 10 mg 08/19/24 21:00 08/20/24 20:50 Loratadine 10 Mg Tablet PO 10 mg QHS KATHARINE Administration Melatonin 5 mg 08/19/24 21:00 08/20/24 20:49 Melatonin 5 Mg Tablet PO 5 mg HS KATHARINE Administration Miconazole Nitrate 1 applic 08/19/24 17:00 08/20/24 16:19 Miconazole Nitrate 2% Cream 30 Gm Tube TOPICAL 1 applic BID KATHARINE Administration Miscellaneous Information 0 each 08/19/24 00:01 Ciclopirox 0.77 % Gel = Non Form XX 09/18/24 00:00 CLARIFY KATHARINE Nitroglycerin 0.4 mg 08/19/24 14:15 Nitroglycerin Sl 0.4 Mg Tablet SUBLINGUAL PRN PRN Chest Pain Non-Formulary Medication 1 applic 08/19/24 21:00 Ciclopirox TOPICAL 09/18/24 20:59 HS KATHARINE Ondansetron HCl 4 mg 08/19/24 06:47 08/20/24 10:36 Ondansetron Inj 4 Mg/2 Ml Vial IV PUSH 4 mg Q4H PRN Administration Nausea Rosuvastatin Calcium 10 mg 08/19/24 21:00 08/20/24 20:50 Rosuvastatin 10 Mg Tablet PO 10 mg HS KATHARINE Administration Silver Sulfadiazine 1 applic 08/20/24 09:00 08/20/24 08:29 Silver Sulfadiazine 1% Cr 50 Gm Jar (*Bkc) TOPICAL 1 applic DAILY KATHARINE Administration Triamcinolone Acetonide 1 applic 08/19/24 14:15 Triamcinolone Acet 0.1% Cream 15 Gm Tube TOPICAL BID PRN rash Zinc Oxide 1 applic 08/19/24 17:00 08/20/24 16:19 Zinc Oxide 20% Oint 30 Gm Tube TOPICAL 1 applic BID KATHARINE Administration Radiology Results: ITS Impressions Chest X-Ray 08/19/24 06:41 Impression: Probable focal hazy opacity right upper lobe. Focal pneumonia is a consideration. Mild central congestive changes. Stable mild cardiomegaly. Modified Barium Swallow 08/19/24 14:46 IMPRESSION: Mild pharyngeal dysphagia with laryngeal penetration without aspiration. Please correlate with speech pathologist findings and specific feeding recommendations. Labs Labs: Laboratory Results - last 24 hr 08/20/24 08/20/24 08/20/24 04:32 11:12 15:41 WBC RBC Hgb Hct MCV MCH MCHC RDW Plt Count MPV Sodium Potassium Chloride Carbon Dioxide Anion Gap BUN Creatinine Estim Creat Clear Calc Estimated GFR Glucose POC Capillary Glucose 158 H 171 H Calcium NT-Pro-B Natriuret Pep 1720 H 08/20/24 08/21/24 08/21/24 20:02 04:35 07:28 WBC 14.2 H RBC 4.75 Hgb 12.5 Hct 40.1 MCV 84.4 MCH 26.3 MCHC 31.2 L RDW 14.4 Plt Count 227 MPV 11.0 H Sodium 136 L Potassium 3.9 Chloride 104 Carbon Dioxide 28 Anion Gap 4 BUN 17 Creatinine 0.66 L Estim Creat Clear Calc 55 Estimated GFR > 60 Glucose 158 H POC Capillary Glucose 181 H 170 H Calcium 9.5 NT-Pro-B Natriuret Pep Quality VTE Prophylaxis VTE prophylaxis: pharmacologic ordered
[2024-08-21] MEDS: INSULIN GLARGINE (*BKC) 100 UNITS/ML 15 UNITS SUB-Q ×2 (08:45→22:06)
[2024-08-21] MEDS: INSULIN ASPART (*BKC) 100 UNITS/ML SUB-Q ×4 (08:45→16:23)
[2024-08-21] MEDS: IPRATROPIUM 0.5 MG/ALBUTEROL SULFATE 2.5 MG AMPUL.NEB 3 ML INHALATION ×3 (09:01→20:00)
[2024-08-21] MEDS: DORZOLAMIDE HCL 2% OPHTH DROPS 2 DROP EACH EYE ×3 (09:47→22:07)
[2024-08-21] MEDS: guaiFENesin 12 HR 600 MG TABCR PO ×2 (09:48→22:06)
[2024-08-21] MEDS: FERROUS SULFATE 325 MG TABLET DR PO ×2 (09:48→16:20)
[2024-08-21] MEDS: APIXABAN 5 MG TABLET PO ×2 (09:48→22:07)
[2024-08-21] MEDS: FUROSEMIDE INJ 40 MG/4 ML VIAL IV PUSH (09:48)
[2024-08-21] MEDS: MICONAZOLE NITRATE 2% CREAM 30 GM TUBE 1 APPLIC TOPICAL ×2 (09:49→18:14)
[2024-08-21] MEDS: AZITHROMYCIN 500 MG/NS 250 ML 500 MG/250 ML BAG 250 MG IVPB (09:49)
[2024-08-21] MEDS: SILVER SULFADIAZINE 1% CR 50 GM JAR (*BKC) 1 APPLIC TOPICAL (09:49)
[2024-08-21] MEDS: ZINC OXIDE 20% OINT 30 GM TUBE 1 APPLIC TOPICAL ×2 (09:50→18:14)
[2024-08-21] MEDS: FLECAINIDE ACETATE 50 MG TABLET PO ×2 (09:52→22:06)
[2024-08-21 11:32] LABS: Glucose Point of Care 224 mg/dl (65-105)
[2024-08-21 15:52] LABS: Glucose Point of Care 173 mg/dl (65-105)
[2024-08-21] MEDS: ALPRAZolam (*CRX) 0.25 MG TABLET PO (16:20)
[2024-08-21 20:13] LABS: Glucose Point of Care 166 mg/dl (65-105)
[2024-08-21] MEDS: ROSUVASTATIN 10 MG TABLET PO (22:06)
[2024-08-21] MEDS: MELATONIN 5 MG TABLET PO (22:06)
[2024-08-21] MEDS: LORATADINE 10 MG TABLET PO (22:06)
[2024-08-21] MEDS: ESCITALOPRAM OXALATE 10 MG TABLET PO (22:06)
[2024-08-22] VITALS (23 sets, daily range): BP systolic 110–143; BP diastolic 35–86; PULSE 66–96; RESP 16–28; TEMP 36.6–36.8; O2SAT 92–97
[2024-08-22 04:56] LABS: Hematocrit 39.7 % (37.0-47.0); Hemoglobin 12.5 g/dL (12.0-15.0); Mean Corpuscular HGB Conc 31.5 g/dl (32-36); Mean Corpuscular Hemoglobin 26.1 pg (26-34); Mean Corpuscular Volume 82.9 fl (80-100); Mean Platelet Volume 10.6 fl (7.4-10.4); Platelet Count Result 226 k/mm3 (150-375); Red Blood Count 4.79 M/mm3 (4.2-5.4); Red Cell Distribution Width 14.2 % (11.5-14.5); White Blood Count 13.9 K/mm3 (4.5-10.0)
[2024-08-22 05:06] LABS: Anion Gap 7 mmol/L (4-12); Blood Urea Nitrogen 19 mg/dL (7-17); Calcium 9.8 mg/dL (8.4-10.2); Carbon Dioxide 29 mmol/L (22-30); Chloride 100 mmol/L (98-107); Estimated CRCL calculation 56 ml/min; Estimated Glomerular Filt Rate > 60; Glucose 147 mg/dL (65-110); Potassium 3.8 mmol/L (3.4-5.0); Sodium 136 mmol/L (137-145)
[2024-08-22] MEDS: LEVOTHYROXINE SODIUM 75 MCG TABLET PO ×2 (06:22→06:23)
[2024-08-22] MEDS: cefTRIAXone 2 GM/NS 100 ML 2 GM/100 ML BAG IVPB (06:22)
[2024-08-22] MEDS: ALPRAZolam (*CRX) 0.25 MG TABLET PO ×2 (06:31→21:03)
[2024-08-22] MEDS: IPRATROPIUM 0.5 MG/ALBUTEROL SULFATE 2.5 MG AMPUL.NEB 3 ML INHALATION ×3 (07:32→20:34)
[2024-08-22 08:03] LABS: Glucose Point of Care 157 mg/dl (65-105)
[2024-08-22] MEDS: DORZOLAMIDE HCL 2% OPHTH DROPS 2 DROP EACH EYE ×3 (08:30→21:04)
[2024-08-22] MEDS: MICONAZOLE NITRATE 2% CREAM 30 GM TUBE 1 APPLIC TOPICAL ×2 (08:30→17:21)
[2024-08-22] MEDS: ZINC OXIDE 20% OINT 30 GM TUBE 1 APPLIC TOPICAL ×2 (08:30→17:20)
[2024-08-22] MEDS: SILVER SULFADIAZINE 1% CR 50 GM JAR (*BKC) 1 APPLIC TOPICAL (08:53)
[2024-08-22] MEDS: FLECAINIDE ACETATE 50 MG TABLET PO ×2 (08:53→21:03)
[2024-08-22] MEDS: FUROSEMIDE INJ 40 MG/4 ML VIAL IV PUSH (08:53)
[2024-08-22] MEDS: FERROUS SULFATE 325 MG TABLET DR PO ×2 (08:53→17:19)
[2024-08-22] MEDS: APIXABAN 5 MG TABLET PO ×2 (08:53→21:03)
[2024-08-22] MEDS: guaiFENesin 12 HR 600 MG TABCR PO ×2 (08:53→21:03)
[2024-08-22] MEDS: INSULIN GLARGINE (*BKC) 100 UNITS/ML 15 UNITS SUB-Q ×2 (08:54→21:01)
[2024-08-22] MEDS: INSULIN ASPART (*BKC) 100 UNITS/ML SUB-Q ×4 (09:02→17:23)
[2024-08-22] MEDS: AZITHROMYCIN 500 MG/NS 250 ML 500 MG/250 ML BAG 250 MG IVPB (09:30)
[2024-08-22 11:42] LABS: Glucose Point of Care 160 mg/dl (65-105)
--- NOTE | 2024-08-22 11:46 | P.PNIM_ITS ---
Progress Note: A&P Assessment and Plan (1) Nosocomial pneumonia: Code(s): J18.9 - Pneumonia, unspecified organism; Y95 - Nosocomial condition Status: Acute Assessment and Plan: possible pneumonia vs diastolic CHF exacerbation, concern for aspiration pneumonia check pneumonia PCR and sputum culture CXr showed R upper and L lower pneumonia Continue with azithromycin. 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 on board, patient passed swallow evaluation (2) Hypoxic respiratory failure: Code(s): J96.91 - Respiratory failure, unspecified with hypoxia Status: Acute Assessment and Plan: Patient on 2 L of oxygen by nasal cannula continue to monitor resp status try to wean off oxygen if able (3) Congestive heart failure: Code(s): I50.9 - Heart failure, unspecified Status: Acute Assessment and Plan: Monitor daily intake and output Iv lasix i/o reviewed (4) Paroxysmal atrial fibrillation: Code(s): I48.0 - Paroxysmal atrial fibrillation Status: Acute Assessment and Plan: Rate controlled and eliquis (5) GERD (gastroesophageal reflux disease): Code(s): K21.9 - Gastro-esophageal reflux disease without esophagitis Status: Acute Assessment and Plan: PPI-stable (6) CATY (obstructive sleep apnea): Code(s): G47.33 - Obstructive sleep apnea (adult) (pediatric) Status: Acute Assessment and Plan: CPAP at nighttime (7) Type 2 diabetes mellitus: Qualifiers: Diabetes mellitus halfway insulin use: with halfway use Diabetes mellitus complication status: without complication Qualified Code(s): E11.9 - Type 2 diabetes mellitus without complications; Z79.4 - MCC (current) use of insulin Code(s): E11.9 - Type 2 diabetes mellitus without complications Status: Acute Assessment and Plan: Resume home meds , aspart5 units tid with meals hypoglycemia protocol AccuCheck ac/hs Subjective Date/time seen: 08/22/24 11:46 Interval history: per HPI: Patient with history of chronic hypoxic respiratory failure on 2 L oxygen at SNF, COPD, CHF prednisone so fibrillation, functional quadriplegic, 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 EMS was called patient received breathing treatment. She was brought to hospital for further management. Patient denies any chest pain, abdominal pain going to the lung compared of bilateral leg swelling. To the concern for pneumonia right upper lobe. COVID / flu negative. Treatment started with azithromycin and Rocephin. Patient was admitted for management . Lab test WBC 14.9, hemoglobin 14.1 sodium 138, potassium 3.3, creatinine 0.6, proBNP 2160 08/20/24 Patient was seen and examined at bedside. Still has shortness of breath. denies any chest pain, abdominal pain, nausea vomiting. Continue with IV antibiotics. Continue with Lasix 08/21/24 Patient was seen and examined at bedside. She is feeling better. Her breathing improving. Denies any chest pain, abdominal pain, nausea vomiting BP 120/48, oxygen saturation 95% on 2 L oxygen. WBC 14.2, sodium 136, potassium 3.9, creatinine 0.6 will check pneumonia PCR 08/22/24 Patient will seen and examined at bedside. Feeling worsening shortness of breast. Respiratory therapy on board. Recommended CPT, . Chest x-ray concerning for right upper lobe left lower lobe pneumonia. will change antibiotics to zosyn . Continue with Lasix and IV antibiotics. Lab tests showed WBC 13.9, sodium 136. Review of Systems Review of Systems: Shortness of breath, productive cough All systems reviewed & are unremarkable except as noted in HPI and below Exam Narrative: GENERAL: Elderly and ill appearing, HEAD: [Normocephalic, atraumatic.] EYES: [PERRLA and EOMI.] ENT: Nares clear, no rhinorrhea or epistaxis. Mucous membranes moist. NECK: Supple. CHEST: Coarse bibasilar breath sounds, no wheezing or prolonged expiratory phase. Rales throughout all lung dave. HEART: [Regular rate and rhythm]. No murmur heard. [Normal peripheral pulses.] ABDOMEN: [Soft, nondistended], [nontender], [No rigidity or guarding] ileostomy tube with green/brown output. Suprapubic catheter intact without any overlying skin changes EXTREMITIES: Normal range of motion. 2+ pitting edema SKIN: Warm, dry, no rash. NEURO: At baseline mentation, no new focal deficits PSYCH: [Normal mood and affect.] Const: Other: Nasal cannula on Neuro: Other: Patient is functional quadriplegic Extrem: Other: Unna boots in place Objective Data Vital Signs Vital Signs: Vital Signs - 24 hr 08/21/24 11:51 08/21/24 12:00 08/21/24 13:27 Temperature 97.8 F Pulse Rate 78 Respiratory Rate 22 H Blood Pressure 119/41 L Pulse Oximetry 95 93 93 Oxygen Delivery Nasal Cannula Nasal Cannula Oxygen Flow Rate 2 2 Fraction of Inspired Oxygen 08/21/24 13:27 08/21/24 13:37 08/21/24 14:00 Temperature Pulse Rate 79 80 83 Respiratory Rate 20 20 Blood Pressure Pulse Oximetry Oxygen Delivery Oxygen Flow Rate Fraction of Inspired Oxygen 08/21/24 16:00 08/21/24 16:00 08/21/24 16:16 Temperature 98.4 F Pulse Rate 78 79 Respiratory Rate 18 Blood Pressure 134/86 Pulse Oximetry 93 20 L Oxygen Delivery Nasal Cannula Oxygen Flow Rate 4 Fraction of Inspired Oxygen 08/21/24 18:00 08/21/24 20:00 08/21/24 20:00 Temperature 97.5 F L Pulse Rate 79 82 Respiratory Rate 20 Blood Pressure 132/93 H Pulse Oximetry 96 93 Oxygen Delivery Nasal Cannula Oxygen Flow Rate 4 Fraction of Inspired Oxygen 08/21/24 20:00 08/21/24 20:01 08/21/24 20:15 Temperature Pulse Rate 79 79 79 Respiratory Rate 20 26 H Blood Pressure Pulse Oximetry 96 Oxygen Delivery BiPAP Oxygen Flow Rate Fraction of Inspired Oxygen 08/21/24 22:00 08/21/24 22:00 08/21/24 22:06 Temperature Pulse Rate 77 76 Respiratory Rate Blood Pressure Pulse Oximetry 95 Oxygen Delivery High Flow Nasal Cannula Oxygen Flow Rate 2 Fraction of Inspired Oxygen 08/22/24 00:00 08/22/24 00:00 08/22/24 02:00 Temperature 97.8 F Pulse Rate 73 71 71 Respiratory Rate 18 Blood Pressure 139/35 L Pulse Oximetry 94 Oxygen Delivery Oxygen Flow Rate Fraction of Inspired Oxygen 08/22/24 04:00 08/22/24 04:00 08/22/24 04:00 Temperature 97.9 F Pulse Rate 92 70 Respiratory Rate 16 Blood Pressure 110/60 Pulse Oximetry 94 94 Oxygen Delivery High Flow Nasal Cannula Oxygen Flow Rate 2 Fraction of Inspired Oxygen 08/22/24 06:00 08/22/24 07:34 08/22/24 07:35 Temperature Pulse Rate 66 71 71 Respiratory Rate 23 H 22 H Blood Pressure Pulse Oximetry 95 Oxygen Delivery BiPAP Oxygen Flow Rate Fraction of Inspired Oxygen 04/06/25 07:49 08/22/24 08:00 08/22/24 08:20 Temperature 98.3 F Pulse Rate 73 74 Respiratory Rate 22 H 26 H Blood Pressure 129/86 Pulse Oximetry 92 95 Oxygen Delivery Nasal Cannula Oxygen Flow Rate 2 Fraction of Inspired Oxygen 08/22/24 09:42 Temperature Pulse Rate 84 Respiratory Rate 24 H Blood Pressure Pulse Oximetry 95 Oxygen Delivery High Flow Therapy with Na Oxygen Flow Rate 40 Fraction of Inspired Oxygen 50 Intake/Output Intake/Output: Intake & Output 08/19/24 08/20/24 08/21/24 08/22/24 23:59 23:59 23:59 23:59 Intake Total 730 1880 1260 20 Output Total 1500 2100 1925 650 Balance -770 -220 -665 -630 Meds/Results Medications: Active Medications Generic Name Dose Route Start Last Admin Trade Name Freq PRN Reason Stop Dose Admin Acetaminophen 1,000 mg 08/19/24 14:15 08/19/24 16:21 Acetaminophen 500 Mg Tablet PO 1,000 mg Q6H PRN Administration pain Acetic Acid 30 ml 08/20/24 16:00 08/20/24 16:19 Acetic Acid 0.25% Irrig Soln 500 Ml IRRIGATION 30 ml Q48H KATHARINE Administration Albuterol/Ipratropium 3 ml 08/19/24 14:00 08/22/24 07:32 Ipratropium 0.5 Mg/Albuterol Sulfate 2.5 Mg Ampul.Neb 3 Ml INHALATION 3 ml TIDRT KATHARINE Administration Alprazolam 0.25 mg 08/21/24 10:23 08/22/24 06:31 Alprazolam (*Crx) 0.25 Mg Tablet PO 0.25 mg Q8HR PRN Administration Anxiety Apixaban 5 mg 08/19/24 21:00 08/22/24 08:53 Apixaban 5 Mg Tablet PO 5 mg Q12HR AKTHARINE Administration Dextrose 12.5 gm 08/19/24 11:52 Dextrose 50% 25 Gm/50 Ml Syringe IV PUSH PRN PRN Hypoglycemia Protocol Dorzolamide HCl 2 drop 08/19/24 21:00 08/21/24 22:07 Dorzolamide Hcl 2% Ophth Drops EACH EYE 2 drop 0900,1200,2100 KATHARINE Administration Escitalopram Oxalate 10 mg 08/19/24 21:00 08/21/24 22:06 Escitalopram Oxalate 10 Mg Tablet PO 10 mg QHS KATHARINE Administration Ferrous Sulfate 325 mg 08/19/24 17:00 08/22/24 08:53 Ferrous Sulfate [address] PO 325 mg BIDWM KATHARINE Administration Flecainide Acetate 50 mg 08/19/24 21:00 08/22/24 08:53 Flecainide Acetate 50 Mg Tablet PO 50 mg Q12HR KATHARINE Administration Furosemide 40 mg 08/20/24 15:05 08/22/24 08:53 Furosemide Inj 40 Mg/4 Ml Vial IV PUSH 40 mg DAILY KATHARINE Administration Glucagon 1 mg 08/19/24 11:52 Glucagon For Inj 1 Mg Vial IM PRN PRN Hypoglycemia Protocol Glucose 15 gm 08/19/24 11:52 Glucose Oral Gel 15 Gm Of Glucse In 37.5 Gm Tube PO PRN PRN Hypoglycemia Protocol Guaifenesin 600 mg 08/20/24 21:00 08/22/24 08:53 Guaifenesin 12 Hr 600 Mg Tabcr PO 600 mg Q12HR KATHARINE Administration Azithromycin 500 mg in 250 mls @ 250 mls/hr 08/20/24 09:00 08/21/24 09:49 Zithromax IVPB 250 mls/hr Q24H KATHARINE Administration Ceftriaxone Sodium 2 gm in 100 mls @ 200 mls/hr 08/20/24 06:30 08/22/24 06:22 Rocephin 2 Gm/Ns 100 Ml IVPB 200 mls/hr Q24H KATHARINE Administration Dextrose 1,000 mls @ 100 mls/hr 08/19/24 11:52 Dextrose 5% 1,000 Ml IVPB PRN PRN Hypoglycemia Protocol Insulin Aspart 5 units 08/19/24 17:00 08/22/24 09:02 Insulin Aspart (*Bkc) 100 Units/Ml SUB-Q 5 units TIDWM KATHARINE Administration Insulin Aspart 3 - 6 units 08/19/24 17:00 08/22/24 08:54 Insulin Aspart (*Bkc) 100 Units/Ml SUB-Q Not Given TIDWM [facility] Protocol Insulin Aspart 1 - 3 units 08/19/24 21:00 08/21/24 20:31 Insulin Aspart (*Bkc) 100 Units/Ml SUB-Q Not Given HS [facility] Protocol Insulin Glargine 15 units 08/19/24 21:00 08/22/24 08:54 Insulin Glargine (*Bkc) 100 Units/Ml SUB-Q 15 units Q12HR KATHARINE Administration Levothyroxine Sodium 75 mcg 08/20/24 06:30 08/22/24 06:22 Levothyroxine Sodium 75 Mcg Tablet PO 75 mcg DAILY@0630 KATHARINE Administration Levothyroxine Sodium 75 mcg 08/22/24 06:30 08/22/24 06:23 Levothyroxine Sodium 75 Mcg Tablet PO 75 mcg Ramirez@0630 [facility] Administration Loratadine 10 mg 08/19/24 21:00 08/21/24 22:06 Loratadine 10 Mg Tablet PO 10 mg QHS KATHARINE Administration Melatonin 5 mg 08/19/24 21:00 08/21/24 22:06 Melatonin 5 Mg Tablet PO 5 mg HS [facility] Administration Miconazole Nitrate 1 applic 08/19/24 17:00 08/21/24 18:14 Miconazole Nitrate 2% Cream 30 Gm Tube TOPICAL 1 applic BID [facility] Administration Miscellaneous Information 0 each 08/19/24 00:01 08/22/24 00:22 Ciclopirox 0.77 % Gel = Non Form XX 09/18/24 00:00 Not Given CLARIFY [facility] Nitroglycerin 0.4 mg 08/19/24 14:15 Nitroglycerin Sl 0.4 Mg Tablet SUBLINGUAL PRN PRN Chest Pain Non-Formulary Medication 1 applic 08/19/24 21:00 Ciclopirox TOPICAL 09/18/24 20:59 HS [facility] Ondansetron HCl 4 mg 08/19/24 06:47 08/20/24 10:36 Ondansetron Inj 4 Mg/2 Ml Vial IV PUSH 4 mg Q4H PRN Administration Nausea Rosuvastatin Calcium 10 mg 08/19/24 21:00 08/21/24 22:06 Rosuvastatin 10 Mg Tablet PO 10 mg HS [facility] Administration Silver Sulfadiazine 1 applic 08/20/24 09:00 08/22/24 08:53 Silver Sulfadiazine 1% Cr 50 Gm Jar (*Bkc) TOPICAL 1 applic DAILY [facility] Administration Triamcinolone Acetonide 1 applic 08/19/24 14:15 Triamcinolone Acet 0.1% Cream 15 Gm Tube TOPICAL BID PRN rash Zinc Oxide 1 applic 08/19/24 17:00 08/21/24 18:14 Zinc Oxide 20% Oint 30 Gm Tube TOPICAL 1 applic BID KATHARINE Administration Radiology Results: ITS Impressions Modified Barium Swallow 08/19/24 14:46 IMPRESSION: Mild pharyngeal dysphagia with laryngeal penetration without aspiration. Please correlate with speech pathologist findings and specific feeding recommendations. Chest X-Ray 08/22/24 09:35 IMPRESSION: Right upper lobe and left lower lobe pneumonia. Labs Labs: Laboratory Results - last 24 hr 08/21/24 08/21/24 08/22/24 15:35 20:09 04:48 WBC 13.9 H RBC 4.79 Hgb 12.5 Hct 39.7 MCV 82.9 MCH 26.1 MCHC 31.5 L RDW 14.2 Plt Count 226 MPV 10.6 H Sodium 136 L Potassium 3.8 Chloride 100 Carbon Dioxide 29 Anion Gap 7 BUN 19 H Creatinine 0.65 L Estim Creat Clear Calc 56 Estimated GFR > 60 Glucose 147 H POC Capillary Glucose 173 H 166 H Calcium 9.8 08/22/24 08/22/24 07:25 11:21 WBC RBC Hgb Hct MCV MCH MCHC RDW Plt Count MPV Sodium Potassium Chloride Carbon Dioxide Anion Gap BUN Creatinine Estim Creat Clear Calc Estimated GFR Glucose POC Capillary Glucose 157 H 160 H Calcium Quality VTE Prophylaxis VTE prophylaxis: pharmacologic ordered
[2024-08-22] MEDS: PIPERACILLN/TAZ 3.375GM/NS50ML 3.375 GM/50 ML BAG IVPB ×2 (12:30→17:35)
[2024-08-22 16:01] LABS: Glucose Point of Care 231 mg/dl (65-105)
[2024-08-22] MEDS: ESCITALOPRAM OXALATE 10 MG TABLET PO (21:03)
[2024-08-22] MEDS: MELATONIN 5 MG TABLET PO (21:03)
[2024-08-22] MEDS: LORATADINE 10 MG TABLET PO (21:03)
[2024-08-22] MEDS: ROSUVASTATIN 10 MG TABLET PO (21:03)
[2024-08-22 21:05] LABS: Glucose Point of Care 179 mg/dl (65-105)
[2024-08-23] VITALS (28 sets, daily range): BP systolic 135–147; BP diastolic 36–52; PULSE 63–83; RESP 18–29; TEMP 36.4–36.8; O2SAT 90–98
[2024-08-23] MEDS: PIPERACILLN/TAZ 3.375GM/NS50ML 3.375 GM/50 ML BAG IVPB ×4 (00:09→17:01)
[2024-08-23 04:57] LABS: Hematocrit 38.9 % (37.0-47.0); Hemoglobin 12.1 g/dL (12.0-15.0); Mean Corpuscular HGB Conc 31.1 g/dl (32-36); Mean Corpuscular Hemoglobin 25.8 pg (26-34); Mean Corpuscular Volume 82.9 fl (80-100); Mean Platelet Volume 10.6 fl (7.4-10.4); Platelet Count Result 229 k/mm3 (150-375); Red Blood Count 4.69 M/mm3 (4.2-5.4); Red Cell Distribution Width 14.2 % (11.5-14.5); White Blood Count 13.4 K/mm3 (4.5-10.0)
[2024-08-23 05:13] LABS: Anion Gap 9 mmol/L (4-12); Blood Urea Nitrogen 23 mg/dL (7-17); Calcium 9.6 mg/dL (8.4-10.2); Carbon Dioxide 29 mmol/L (22-30); Chloride 100 mmol/L (98-107); Estimated CRCL calculation 50 ml/min; Estimated Glomerular Filt Rate > 60; Glucose 166 mg/dL (65-110); Potassium 3.5 mmol/L (3.4-5.0); Sodium 138 mmol/L (137-145)
[2024-08-23] MEDS: LEVOTHYROXINE SODIUM 75 MCG TABLET PO (06:37)
[2024-08-23 07:39] LABS: Glucose Point of Care 175 mg/dl (65-105)
[2024-08-23] MEDS: IPRATROPIUM 0.5 MG/ALBUTEROL SULFATE 2.5 MG AMPUL.NEB 3 ML INHALATION ×3 (08:18→20:07)
[2024-08-23] MEDS: guaiFENesin 12 HR 600 MG TABCR PO ×2 (09:11→20:12)
[2024-08-23] MEDS: FERROUS SULFATE 325 MG TABLET DR PO ×2 (09:11→16:57)
[2024-08-23] MEDS: APIXABAN 5 MG TABLET PO ×2 (09:11→20:13)
[2024-08-23] MEDS: FUROSEMIDE INJ 40 MG/4 ML VIAL IV PUSH ×2 (09:12→16:57)
[2024-08-23] MEDS: AZITHROMYCIN 500 MG/NS 250 ML 500 MG/250 ML BAG 250 MG IVPB (09:12)
[2024-08-23] MEDS: FLECAINIDE ACETATE 50 MG TABLET PO ×2 (09:12→20:12)
[2024-08-23] MEDS: DORZOLAMIDE HCL 2% OPHTH DROPS 2 DROP EACH EYE ×3 (09:13→20:13)
[2024-08-23] MEDS: MICONAZOLE NITRATE 2% CREAM 30 GM TUBE 1 APPLIC TOPICAL ×2 (09:14→16:59)
[2024-08-23] MEDS: SILVER SULFADIAZINE 1% CR 50 GM JAR (*BKC) 1 APPLIC TOPICAL (09:14)
[2024-08-23] MEDS: INSULIN GLARGINE (*BKC) 100 UNITS/ML 15 UNITS SUB-Q ×2 (09:15→20:11)
[2024-08-23] MEDS: ZINC OXIDE 20% OINT 30 GM TUBE 1 APPLIC TOPICAL ×2 (09:15→16:59)
[2024-08-23] MEDS: INSULIN ASPART (*BKC) 100 UNITS/ML SUB-Q ×5 (09:17→20:12)
[2024-08-23 11:45] LABS: Glucose Point of Care 223 mg/dl (65-105)
--- NOTE | 2024-08-23 12:29 | P.PNIM_ITS ---
Progress Note: A&P Assessment and Plan (1) Nosocomial pneumonia: Code(s): J18.9 - Pneumonia, unspecified organism; Y95 - Nosocomial condition Status: Acute Assessment and Plan: possible pneumonia vs diastolic CHF exacerbation, concern for aspiration pneumonia CXr showed R upper and L lower pneumonia Continue with azithromycin. change rocephin to Zosyn 08/22/24 Iv Laisx changed bid Tele monitoring Daily weight I/O [employer] on board, patient passed swallow evaluation (2) Hypoxic respiratory failure: Code(s): J96.91 - Respiratory failure, unspecified with hypoxia Status: Acute Assessment and Plan: plan as above Patient on 2 L of oxygen by nasal cannula continue to monitor resp status try to wean off oxygen if able (3) Congestive heart failure: Code(s): I50.9 - Heart failure, unspecified Status: Acute Assessment and Plan: Monitor daily intake and output Iv lasix i/o reviewed (4) Paroxysmal atrial fibrillation: Code(s): I48.0 - Paroxysmal atrial fibrillation Status: Acute Assessment and Plan: Rate controlled and eliquis (5) GERD (gastroesophageal reflux disease): Code(s): K21.9 - Gastro-esophageal reflux disease without esophagitis Status: Acute Assessment and Plan: PPI-stable (6) CATY (obstructive sleep apnea): Code(s): G47.33 - Obstructive sleep apnea (adult) (pediatric) Status: Acute Assessment and Plan: CPAP at nighttime (7) Type 2 diabetes mellitus: Qualifiers: Diabetes mellitus complication status: without complication Diabetes mellitus mcc insulin use: with ad terminal makeup operator use Qualified Code(s): E11.9 - Type 2 diabetes mellitus without complications; Z79.4 - detention (current) use of insulin Code(s): E11.9 - Type 2 diabetes mellitus without complications Status: Acute Assessment and Plan: Resume home meds , aspart5 units tid with meals hypoglycemia protocol AccuCheck ac/hs Subjective Date/time seen: 08/23/24 12:29 Interval history: per HPI: Patient with history of chronic hypoxic respiratory failure on 2 L oxygen at SNF, COPD, CHF prednisone so fibrillation, functional quadriplegic, 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 EMS was called patient received breathing treatment. She was brought to hospital for further management. Patient denies any chest pain, abdominal pain going to the lung compared of bilateral leg swelling. To the concern for pneumonia right upper lobe. COVID / flu negative. Treatment started with azithromycin and Rocephin. Patient was admitted for management . Lab test WBC 14.9, hemoglobin 14.1 sodium 138, potassium 3.3, creatinine 0.6, proBNP 2160 08/20/24 Patient was seen and examined at bedside. Still has shortness of breath. denies any chest pain, abdominal pain, nausea vomiting. Continue with IV antibiotics. Continue with Lasix 08/21/24 Patient was seen and examined at bedside. She is feeling better. Her breathing improving. Denies any chest pain, abdominal pain, nausea vomiting BP 120/48, oxygen saturation 95% on 2 L oxygen. WBC 14.2, sodium 136, potassium 3.9, creatinine 0.6 will check pneumonia PCR 08/22/24 Patient will seen and examined at bedside. Feeling worsening shortness of breast. Respiratory therapy on board. Recommended CPT, . Chest x-ray concerning for right upper lobe left lower lobe pneumonia. will change antibiotics to zosyn . Continue with Lasix and IV antibiotics. Lab tests showed WBC 13.9, sodium 136. 08/23/24 Patient was seen and examine at bedside. she is feeling better. her breathing is better. denies chest pain, abd pain, nausea or vomiting. Continue with Zosyn. Currently 0.7. We will increase Lasix to 40 b.i.d. Review of Systems Review of Systems: Shortness of breath, productive cough All systems reviewed & are unremarkable except as noted in HPI and below Exam Narrative: GENERAL: Elderly and ill appearing, HEAD: [Normocephalic, atraumatic.] EYES: [PERRLA and EOMI.] ENT: Nares clear, no rhinorrhea or epistaxis. Mucous membranes moist. NECK: Supple. CHEST: Coarse bibasilar breath sounds, no wheezing or prolonged expiratory phase. Rales throughout all lung dave. HEART: [Regular rate and rhythm]. No murmur heard. [Normal peripheral pulses.] ABDOMEN: [Soft, nondistended], [nontender], [No rigidity or guarding] ileostomy tube with green/brown output. Suprapubic catheter intact without any overlying skin changes EXTREMITIES: Normal range of motion. 2+ pitting edema SKIN: Warm, dry, no rash. NEURO: At baseline mentation, no new focal deficits PSYCH: [Normal mood and affect.] Const: Other: Nasal cannula on Neuro: Other: Patient is functional quadriplegic Extrem: Other: Unna boots in place Objective Data Vital Signs Vital Signs: Vital Signs - 24 hr 08/22/24 14:00 08/22/24 14:39 08/22/24 14:39 Temperature Pulse Rate 81 80 80 Respiratory Rate 24 H 24 H Blood Pressure Pulse Oximetry 96 Oxygen Delivery High Flow Therapy with Na Oxygen Flow Rate 40 Fraction of Inspired Oxygen 50 08/22/24 14:49 08/22/24 16:00 08/22/24 16:00 Temperature 98.3 F Pulse Rate 81 96 Respiratory Rate 20 20 Blood Pressure 123/49 L Pulse Oximetry 95 96 Oxygen Delivery High Flow Nasal Cannula Oxygen Flow Rate 36 Fraction of Inspired Oxygen 08/22/24 16:00 08/22/24 18:00 08/22/24 20:00 Temperature Pulse Rate 76 87 Respiratory Rate Blood Pressure Pulse Oximetry 95 Oxygen Delivery High Flow Nasal Cannula Oxygen Flow Rate 40 Fraction of Inspired Oxygen 51 08/22/24 20:00 08/22/24 20:00 08/22/24 20:35 Temperature 98.3 F Pulse Rate 80 86 79 Respiratory Rate 21 H 20 Blood Pressure 143/48 H Pulse Oximetry 97 Oxygen Delivery Oxygen Flow Rate Fraction of Inspired Oxygen 08/22/24 20:50 08/22/24 21:03 08/22/24 22:00 Temperature Pulse Rate 79 80 77 Respiratory Rate 20 Blood Pressure Pulse Oximetry Oxygen Delivery Oxygen Flow Rate Fraction of Inspired Oxygen 08/22/24 22:29 08/23/24 00:00 08/23/24 00:00 Temperature Pulse Rate 79 72 Respiratory Rate 24 H Blood Pressure Pulse Oximetry 96 96 Oxygen Delivery BiPAP BiPAP Oxygen Flow Rate Fraction of Inspired Oxygen 36 08/23/24 00:00 08/23/24 02:00 08/23/24 02:43 Temperature 97.6 F Pulse Rate 72 66 65 Respiratory Rate 24 H 21 H Blood Pressure 136/46 L Pulse Oximetry 97 96 Oxygen Delivery BiPAP Oxygen Flow Rate Fraction of Inspired Oxygen 08/23/24 04:00 08/23/24 04:00 08/23/24 05:00 Temperature 97.9 F Pulse Rate 63 65 Respiratory Rate 21 H Blood Pressure 136/44 L Pulse Oximetry 95 95 Oxygen Delivery BiPAP Oxygen Flow Rate Fraction of Inspired Oxygen 36 08/23/24 06:00 08/23/24 07:47 08/23/24 08:00 Temperature 98 F Pulse Rate 63 67 77 Respiratory Rate 18 Blood Pressure 135/48 L Pulse Oximetry 96 Oxygen Delivery Oxygen Flow Rate Fraction of Inspired Oxygen 08/23/24 08:18 08/23/24 08:18 08/23/24 08:24 Temperature Pulse Rate 80 72 Respiratory Rate 20 20 Blood Pressure Pulse Oximetry 91 Oxygen Delivery Nasal Cannula Oxygen Flow Rate 2.5 Fraction of Inspired Oxygen 30 08/23/24 09:12 08/23/24 10:00 08/23/24 11:50 Temperature 97.8 F Pulse Rate 78 74 73 Respiratory Rate 24 H Blood Pressure 139/50 L Pulse Oximetry 94 Oxygen Delivery Oxygen Flow Rate Fraction of Inspired Oxygen Intake/Output Intake/Output: Intake & Output 08/20/24 08/21/24 08/22/24 08/23/24 23:59 23:59 23:59 23:59 Intake Total 1880 1510 1520 780 Output Total 2100 9248 621 8928 Balance -220 -958 419 -068 Meds/Results Medications: Active Medications Generic Name Dose Route Start Last Admin Trade Name Freq PRN Reason Stop Dose Admin Acetaminophen 1,000 mg 08/19/24 14:15 08/19/24 16:21 Acetaminophen 500 Mg Tablet PO 1,000 mg Q6H PRN Administration pain Acetic Acid 30 ml 08/20/24 16:00 08/22/24 17:23 Acetic Acid 0.25% Irrig Soln 500 Ml IRRIGATION Not Given Q48H KATHARINE Albuterol/Ipratropium 3 ml 08/19/24 14:00 08/23/24 08:18 Ipratropium 0.5 Mg/Albuterol Sulfate 2.5 Mg Ampul.Neb 3 Ml INHALATION 3 ml TIDRT KATHARINE Administration Alprazolam 0.25 mg 08/21/24 10:23 08/22/24 21:03 Alprazolam (*Crx) 0.25 Mg Tablet PO 0.25 mg Q8HR PRN Administration Anxiety Apixaban 5 mg 08/19/24 21:00 08/23/24 09:11 Apixaban 5 Mg Tablet PO 5 mg Q12HR KATHARINE Administration Dextrose 12.5 gm 08/19/24 11:52 Dextrose 50% 25 Gm/50 Ml Syringe IV PUSH PRN PRN Hypoglycemia Protocol Dorzolamide HCl 2 drop 08/19/24 21:00 08/23/24 11:58 Dorzolamide Hcl 2% Ophth Drops EACH EYE 2 drop 0900,1200,2100 KATHARINE Administration Escitalopram Oxalate 10 mg 08/19/24 21:00 08/22/24 21:03 Escitalopram Oxalate 10 Mg Tablet PO 10 mg QHS KATHARINE Administration Ferrous Sulfate 325 mg 08/19/24 17:00 08/23/24 09:11 Ferrous Sulfate [address] PO 325 mg BIDWM KATHARINE Administration Flecainide Acetate 50 mg 08/19/24 21:00 08/23/24 09:12 Flecainide Acetate 50 Mg Tablet PO 50 mg Q12HR KATHARINE Administration Furosemide 40 mg 08/20/24 15:05 08/23/24 09:12 Furosemide Inj 40 Mg/4 Ml Vial IV PUSH 40 mg DAILY KATHRAINE Administration Glucagon 1 mg 08/19/24 11:52 Glucagon For Inj 1 Mg Vial IM PRN PRN Hypoglycemia Protocol Glucose 15 gm 08/19/24 11:52 Glucose Oral Gel 15 Gm Of Glucse In 37.5 Gm Tube PO PRN PRN Hypoglycemia Protocol Guaifenesin 600 mg 08/20/24 21:00 08/23/24 09:11 Guaifenesin 12 Hr 600 Mg Tabcr PO 600 mg Q12HR KATHARINE Administration Azithromycin 500 mg in 250 mls @ 250 mls/hr 08/20/24 09:00 08/23/24 09:12 Zithromax IVPB 250 mls/hr Q24H KATHARINE Administration Dextrose 1,000 mls @ 100 mls/hr 08/19/24 11:52 Dextrose 5% 1,000 Ml IVPB PRN PRN Hypoglycemia Protocol Piperacillin/Tazobactam/Dextrose 3.375 gm in 50 mls @ 100 mls/hr 08/22/24 12:00 08/23/24 11:57 Zosyn 3.375 Gm/Ns 50 Ml IVPB 100 mls/hr Q6H KATHARINE Administration Insulin Aspart 5 units 08/19/24 17:00 08/23/24 11:58 Insulin Aspart (*Bkc) 100 Units/Ml SUB-Q 5 units TIDWM KATHARINE Administration Insulin Aspart 3 - 6 units 08/19/24 17:00 08/23/24 11:58 Insulin Aspart (*Bkc) 100 Units/Ml SUB-Q 3 units TIDWM [facility] Administration Protocol Insulin Aspart 1 - 3 units 08/19/24 21:00 08/22/24 21:04 Insulin Aspart (*Bkc) 100 Units/Ml SUB-Q Not Given HS [facility] Protocol Insulin Glargine 15 units 08/19/24 21:00 08/23/24 09:15 Insulin Glargine (*Bkc) 100 Units/Ml SUB-Q 15 units Q12HR KATHARINE Administration Levothyroxine Sodium 75 mcg 08/20/24 06:30 08/23/24 06:37 Levothyroxine Sodium 75 Mcg Tablet PO 75 mcg DAILY@0630 KATHARINE Administration Levothyroxine Sodium 75 mcg 08/22/24 06:30 08/22/24 06:23 Levothyroxine Sodium 75 Mcg Tablet PO 75 mcg Ramirez@0630 [facility] Administration Loratadine 10 mg 08/19/24 21:00 08/22/24 21:03 Loratadine 10 Mg Tablet PO 10 mg QHS [facility] Administration Melatonin 5 mg 08/19/24 21:00 08/22/24 21:03 Melatonin 5 Mg Tablet PO 5 mg HS [facility] Administration Miconazole Nitrate 1 applic 08/19/24 17:00 08/23/24 09:14 Miconazole Nitrate 2% Cream 30 Gm Tube TOPICAL 1 applic BID KATHARINE Administration Miscellaneous Information 0 each 08/19/24 00:01 08/23/24 09:18 Ciclopirox 0.77 % Gel = Non Form XX 09/18/24 00:00 Not Given CLARIFY [facility] Nitroglycerin 0.4 mg 08/19/24 14:15 Nitroglycerin Sl 0.4 Mg Tablet SUBLINGUAL PRN PRN Chest Pain Non-Formulary Medication 1 applic 08/19/24 21:00 Ciclopirox TOPICAL 09/18/24 20:59 HS [facility] Ondansetron HCl 4 mg 08/19/24 06:47 08/20/24 10:36 Ondansetron Inj 4 Mg/2 Ml Vial IV PUSH 4 mg Q4H PRN Administration Nausea Rosuvastatin Calcium 10 mg 08/19/24 21:00 08/22/24 21:03 Rosuvastatin 10 Mg Tablet PO 10 mg HS [facility] Administration Silver Sulfadiazine 1 applic 08/20/24 09:00 08/23/24 09:14 Silver Sulfadiazine 1% Cr 50 Gm Jar (*Bkc) TOPICAL 1 applic DAILY KATHARINE Administration Triamcinolone Acetonide 1 applic 08/19/24 14:15 Triamcinolone Acet 0.1% Cream 15 Gm Tube TOPICAL BID PRN rash Zinc Oxide 1 applic 08/19/24 17:00 08/23/24 09:15 Zinc Oxide 20% Oint 30 Gm Tube TOPICAL 1 applic BID KATHARINE Administration Radiology Results: ITS Impressions Modified Barium Swallow 08/19/24 14:46 IMPRESSION: Mild pharyngeal dysphagia with laryngeal penetration without aspiration. Please correlate with speech pathologist findings and specific feeding recommendations. Chest X-Ray 08/22/24 09:35 IMPRESSION: Right upper lobe and left lower lobe pneumonia. Labs Labs: Laboratory Results - last 24 hr 08/22/24 08/22/24 08/23/24 15:33 20:35 04:44 WBC 13.4 H RBC 4.69 Hgb 12.1 Hct 38.9 MCV 82.9 MCH 25.8 L MCHC 31.1 L RDW 14.2 Plt Count 229 MPV 10.6 H Sodium 138 Potassium 3.5 Chloride 100 Carbon Dioxide 29 Anion Gap 9 BUN 23 H Creatinine 0.73 Estim Creat Clear Calc 50 Estimated GFR > 60 Glucose 166 H POC Capillary Glucose 231 H 179 H Calcium 9.6 08/23/24 08/23/24 07:25 11:38 WBC RBC Hgb Hct MCV MCH MCHC RDW Plt Count MPV Sodium Potassium Chloride Carbon Dioxide Anion Gap BUN Creatinine Estim Creat Clear Calc Estimated GFR Glucose POC Capillary Glucose 175 H 223 H Calcium Quality VTE Prophylaxis VTE prophylaxis: pharmacologic ordered
[2024-08-23 16:23] LABS: Glucose Point of Care 156 mg/dl (65-105)
[2024-08-23] MEDS: MELATONIN 5 MG TABLET PO (20:12)
[2024-08-23] MEDS: ALPRAZolam (*CRX) 0.25 MG TABLET PO (20:13)
[2024-08-23] MEDS: ROSUVASTATIN 10 MG TABLET PO (20:13)
[2024-08-23] MEDS: ESCITALOPRAM OXALATE 10 MG TABLET PO (20:13)
[2024-08-23] MEDS: LORATADINE 10 MG TABLET PO (20:13)
[2024-08-23 20:31] LABS: Glucose Point of Care 235 mg/dl (65-105)
[2024-08-24] VITALS (18 sets, daily range): BP systolic 122–138; BP diastolic 51–97; PULSE 65–86; RESP 14–24; TEMP 36.5–36.6; O2SAT 90–97
[2024-08-24] MEDS: PIPERACILLN/TAZ 3.375GM/NS50ML 3.375 GM/50 ML BAG IVPB ×5 (00:01→23:25)
[2024-08-24 04:33] LABS: Hematocrit 38.6 % (37.0-47.0); Hemoglobin 12.1 g/dL (12.0-15.0); Mean Corpuscular HGB Conc 31.3 g/dl (32-36); Mean Corpuscular Hemoglobin 26.4 pg (26-34); Mean Corpuscular Volume 84.3 fl (80-100); Mean Platelet Volume 11.2 fl (7.4-10.4); Platelet Count Result 237 k/mm3 (150-375); Red Blood Count 4.58 M/mm3 (4.2-5.4); Red Cell Distribution Width 14.3 % (11.5-14.5); White Blood Count 14.6 K/mm3 (4.5-10.0)
[2024-08-24 04:47] LABS: Alanine Aminotransferase 13 U/L (6-35); Albumin Level 3.5 g/dL (3.5-5.1); Alkaline Phosphatase 77 U/L (38-126); Anion Gap 6 mmol/L (4-12); Aspartate Amino Transferase 22 U/L (14-36); Bilirubin,Total 0.5 mg/dL (0.2-1.3); Blood Urea Nitrogen 27 mg/dL (7-17); Calcium 9.5 mg/dL (8.4-10.2); Carbon Dioxide 29 mmol/L (22-30); Chloride 101 mmol/L (98-107); Estimated CRCL calculation 56 ml/min; Estimated Glomerular Filt Rate > 60; Glucose 159 mg/dL (65-110); Potassium 3.3 mmol/L (3.4-5.0); Sodium 136 mmol/L (137-145)
[2024-08-24] MEDS: LEVOTHYROXINE SODIUM 75 MCG TABLET PO (05:31)
[2024-08-24 07:45] LABS: Glucose Point of Care 159 mg/dl (65-105)
[2024-08-24] MEDS: IPRATROPIUM 0.5 MG/ALBUTEROL SULFATE 2.5 MG AMPUL.NEB 3 ML INHALATION ×3 (08:53→20:45)
[2024-08-24] MEDS: INSULIN ASPART (*BKC) 100 UNITS/ML SUB-Q ×6 (09:07→21:18)
[2024-08-24] MEDS: INSULIN GLARGINE (*BKC) 100 UNITS/ML 15 UNITS SUB-Q ×2 (09:08→21:19)
[2024-08-24] MEDS: APIXABAN 5 MG TABLET PO ×2 (09:10→20:24)
[2024-08-24] MEDS: FERROUS SULFATE 325 MG TABLET DR PO ×2 (09:10→17:08)
[2024-08-24] MEDS: guaiFENesin 12 HR 600 MG TABCR PO ×2 (09:10→20:25)
[2024-08-24] MEDS: ALPRAZolam (*CRX) 0.25 MG TABLET PO ×2 (09:10→20:24)
[2024-08-24] MEDS: FLECAINIDE ACETATE 50 MG TABLET PO ×2 (09:10→20:24)
[2024-08-24] MEDS: MICONAZOLE NITRATE 2% CREAM 30 GM TUBE 1 APPLIC TOPICAL ×2 (09:11→17:16)
[2024-08-24] MEDS: DORZOLAMIDE HCL 2% OPHTH DROPS 2 DROP EACH EYE ×3 (09:11→20:28)
[2024-08-24] MEDS: SILVER SULFADIAZINE 1% CR 50 GM JAR (*BKC) 1 APPLIC TOPICAL (09:12)
[2024-08-24] MEDS: ZINC OXIDE 20% OINT 30 GM TUBE 1 APPLIC TOPICAL ×2 (09:12→17:16)
[2024-08-24] MEDS: FUROSEMIDE INJ 40 MG/4 ML VIAL IV PUSH ×2 (09:15→17:11)
--- NOTE | 2024-08-24 11:14 | PC.NURSE ---
This patient, Perla Leon, was received from IMU on 08/24/24 at 1105. Patient/family oriented to unit policies and routines
[2024-08-24 11:37] LABS: Glucose Point of Care 302 mg/dl (65-105)
--- NOTE | 2024-08-24 12:08 | PM.IMPN ---
Progress Note: A&P Assessment and Plan (1) Nosocomial pneumonia: Code(s): J18.9 - Pneumonia, unspecified organism; Y95 - Nosocomial condition Status: Acute Assessment and Plan: possible pneumonia vs diastolic CHF exacerbation, concern for aspiration pneumonia CXr showed R upper and L lower pneumonia Completed azithromycin. change rocephin to Zosyn 08/22/24 Iv Laisx changed bid Tele monitoring Daily weight I/O ordered CPT will get CT chest MACHINE COREMAKER on board, patient passed swallow evaluation (2) Hypoxic respiratory failure: Qualifiers: Chronicity: acute on chronic Qualified Code(s): J96.21 - Acute and chronic respiratory failure with hypoxia Code(s): J96.91 - Respiratory failure, unspecified with hypoxia Status: Acute Assessment and Plan: plan as above Patient on 2 L of oxygen at baseline by nasal cannula continue to monitor resp status try to wean off oxygen if able (3) Congestive heart failure: Qualifiers: Heart failure type: diastolic Heart failure chronicity: acute on chronic Qualified Code(s): I50.33 - Acute on chronic diastolic (congestive) heart failure Code(s): I50.9 - Heart failure, unspecified Status: Acute Assessment and Plan: Monitor daily intake and output Iv lasix i/o reviewed (4) Paroxysmal atrial fibrillation: Code(s): I48.0 - Paroxysmal atrial fibrillation Status: Acute Assessment and Plan: Rate controlled and eliquis (5) GERD (gastroesophageal reflux disease): Code(s): K21.9 - Gastro-esophageal reflux disease without esophagitis Status: Acute Assessment and Plan: PPI-stable (6) CATY (obstructive sleep apnea): Code(s): G47.33 - Obstructive sleep apnea (adult) (pediatric) Status: Acute Assessment and Plan: CPAP at nighttime (7) Type 2 diabetes mellitus: Qualifiers: Diabetes mellitus complication status: without complication Diabetes mellitus long goods drier insulin use: with long goods drier use Qualified Code(s): E11.9 - Type 2 diabetes mellitus without complications; Z79.4 - long term care pharmacist (current) use of insulin Code(s): E11.9 - Type 2 diabetes mellitus without complications Status: Acute Assessment and Plan: Resume home meds , aspart5 units tid with meals hypoglycemia protocol AccuCheck ac/hs Plan Possible discharge tomorrow if her breathing continue to improve. 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 EMS was called patient received breathing treatment. She was brought to hospital for further management. Patient denies any chest pain, abdominal pain going to the lung compared of bilateral leg swelling. To the concern for pneumonia right upper lobe. COVID / flu negative. Treatment started with azithromycin and Rocephin. Patient was admitted for management . Lab test WBC 14.9, hemoglobin 14.1 sodium 138, potassium 3.3, creatinine 0.6, proBNP 2160 08/20/24 Patient was seen and examined at bedside. Still has shortness of breath. denies any chest pain, abdominal pain, nausea vomiting. Continue with IV antibiotics. Continue with Lasix 08/21/24 Patient was seen and examined at bedside. She is feeling better. Her breathing improving. Denies any chest pain, abdominal pain, nausea vomiting BP 120/48, oxygen saturation 95% on 2 L oxygen. WBC 14.2, sodium 136, potassium 3.9, creatinine 0.6 will check pneumonia PCR 08/22/24 Patient will seen and examined at bedside. Feeling worsening shortness of breast. Respiratory therapy on board. Recommended CPT, . Chest x-ray concerning for right upper lobe left lower lobe pneumonia. will change antibiotics to zosyn . Continue with Lasix and IV antibiotics. Lab tests showed WBC 13.9, sodium 136. 08/23/24 Patient was seen and examine at bedside. she is feeling better. her breathing is better. denies chest pain, abd pain, nausea or vomiting. Continue with Zosyn. Currently 0.7. We will increase Lasix to 40 b.i.d. 08/24/24 patient was seen and examine at bedside. she is feeling better. her breathing is better. denies chest pain, abd pain, nausea or vomiting. In the morning patient was on 2 L oxygen but later needed 3-4 L oxygen to keep saturation around 90%. Order CPT. Continue current treatment. WBC improving to her baseline. Review culture positive for Pseudomonas, pansensitive. Continue with Zosyn for now. Has prolonged QTC. Review of Systems Review of Systems: Shortness of breath, productive cough All systems reviewed & are unremarkable except as noted in HPI and below Exam Narrative: GENERAL: Elderly and ill appearing, HEAD: [Normocephalic, atraumatic.] EYES: [PERRLA and EOMI.] ENT: Nares clear, no rhinorrhea or epistaxis. Mucous membranes moist. NECK: Supple. CHEST: Coarse bibasilar breath sounds, no wheezing or prolonged expiratory phase. Rales throughout all lung dave. HEART: [Regular rate and rhythm]. No murmur heard. [Normal peripheral pulses.] ABDOMEN: [Soft, nondistended], [nontender], [No rigidity or guarding] ileostomy tube with green/brown output. Suprapubic catheter intact without any overlying skin changes EXTREMITIES: Normal range of motion. 2+ pitting edema SKIN: Warm, dry, no rash. NEURO: At baseline mentation, no new focal deficits PSYCH: [Normal mood and affect.] Const: Other: Nasal cannula on Neuro: Other: Patient is functional quadriplegic Extrem: Other: Unna boots in place Objective Data Vital Signs Vital Signs: Vital Signs - 24 hr 08/23/24 13:37 08/23/24 13:37 08/23/24 13:45 Temperature Pulse Rate 67 71 Respiratory Rate 20 20 Blood Pressure Pulse Oximetry 94 Oxygen Delivery Nasal Cannula Oxygen Flow Rate 3 Fraction of Inspired Oxygen 08/23/24 14:00 08/23/24 16:00 08/23/24 16:00 Temperature 98.2 F Pulse Rate 74 72 76 Respiratory Rate 24 H Blood Pressure 147/36 H Pulse Oximetry 98 Oxygen Delivery Oxygen Flow Rate Fraction of Inspired Oxygen 08/23/24 20:00 08/23/24 20:00 08/23/24 20:05 Temperature 98 F Pulse Rate 81 78 79 Respiratory Rate 24 H 26 H Blood Pressure 136/52 L Pulse Oximetry 90 93 Oxygen Delivery Nasal Cannula Oxygen Flow Rate 3 Fraction of Inspired Oxygen 08/23/24 20:08 08/23/24 20:12 08/23/24 20:14 Temperature Pulse Rate 80 78 Respiratory Rate 20 Blood Pressure Pulse Oximetry 98 Oxygen Delivery Nasal Cannula Oxygen Flow Rate 3 Fraction of Inspired Oxygen 32 08/23/24 20:15 08/23/24 21:15 08/23/24 22:00 Temperature Pulse Rate 83 76 68 Respiratory Rate 20 29 H Blood Pressure Pulse Oximetry 96 Oxygen Delivery BiPAP Oxygen Flow Rate Fraction of Inspired Oxygen 08/23/24 23:45 08/23/24 23:53 08/24/24 00:00 Temperature 97.7 F Pulse Rate 66 68 68 Respiratory Rate 21 H 24 H 24 H Blood Pressure 142/50 H Pulse Oximetry 96 96 96 Oxygen Delivery BiPAP BiPAP Oxygen Flow Rate Fraction of Inspired Oxygen 32 08/24/24 00:00 08/24/24 02:00 08/24/24 04:00 Temperature 97.9 F Pulse Rate 66 67 68 Respiratory Rate 24 H Blood Pressure 133/51 L Pulse Oximetry 95 Oxygen Delivery Oxygen Flow Rate Fraction of Inspired Oxygen 08/24/24 04:00 08/24/24 04:30 08/24/24 05:57 Temperature Pulse Rate 66 68 65 Respiratory Rate 24 H Blood Pressure Pulse Oximetry 94 Oxygen Delivery BiPAP Oxygen Flow Rate Fraction of Inspired Oxygen 32 08/24/24 07:38 08/24/24 08:00 08/24/24 08:53 Temperature 98 F Pulse Rate 71 78 Respiratory Rate 20 Blood Pressure 122/83 Pulse Oximetry 95 93 Oxygen Delivery Nasal Cannula Oxygen Flow Rate 3 Fraction of Inspired Oxygen 08/24/24 08:53 08/24/24 09:02 08/24/24 09:10 Temperature Pulse Rate 82 83 86 Respiratory Rate 20 21 H Blood Pressure Pulse Oximetry 95 Oxygen Delivery BiPAP Oxygen Flow Rate Fraction of Inspired Oxygen 08/24/24 10:00 Temperature Pulse Rate 85 Respiratory Rate Blood Pressure Pulse Oximetry Oxygen Delivery Oxygen Flow Rate Fraction of Inspired Oxygen Intake/Output Intake/Output: Intake & Output 08/21/24 08/22/24 08/23/24 08/24/24 23:59 23:59 23:59 23:59 Intake Total 1510 1520 1990 580 Output Total 0505 103 4560 [address] [place] [address] 618 [phone] -2011 Meds/Results Medications: Active Medications Generic Name Dose Route Start Last Admin Trade Name Freq PRN Reason Stop Dose Admin Acetaminophen 1,000 mg 08/19/24 14:15 08/19/24 16:21 Acetaminophen 500 Mg Tablet PO 1,000 mg Q6H PRN Administration pain Acetic Acid 30 ml 08/20/24 16:00 08/22/24 17:23 Acetic Acid 0.25% Irrig Soln 500 Ml IRRIGATION Not Given Q48H KATHARINE Albuterol/Ipratropium 3 ml 08/19/24 14:00 08/24/24 08:53 Ipratropium 0.5 Mg/Albuterol Sulfate 2.5 Mg Ampul.Neb 3 Ml INHALATION 3 ml TIDRT KATHARINE Administration Alprazolam 0.25 mg 08/21/24 10:23 08/24/24 09:10 Alprazolam (*Crx) 0.25 Mg Tablet PO 0.25 mg Q8HR PRN Administration Anxiety Apixaban 5 mg 08/19/24 21:00 08/24/24 09:10 Apixaban 5 Mg Tablet PO 5 mg Q12HR KATHARINE Administration Dextrose 12.5 gm 08/19/24 11:52 Dextrose 50% 25 Gm/50 Ml Syringe IV PUSH PRN PRN Hypoglycemia Protocol Dorzolamide HCl 2 drop 08/19/24 21:00 08/24/24 09:11 Dorzolamide Hcl 2% Ophth Drops EACH EYE 2 drop 0900,1200,2100 KATHARINE Administration Escitalopram Oxalate 10 mg 08/19/24 21:00 08/23/24 20:13 Escitalopram Oxalate 10 Mg Tablet PO 10 mg QHS KATHARINE Administration Ferrous Sulfate 325 mg 08/19/24 17:00 08/24/24 09:10 Ferrous Sulfate [address] PO 325 mg BIDWM KATHARINE Administration Flecainide Acetate 50 mg 08/19/24 21:00 08/24/24 09:10 Flecainide Acetate 50 Mg Tablet PO 50 mg Q12HR KATHARINE Administration Furosemide 40 mg 08/23/24 17:00 08/24/24 09:15 Furosemide Inj 40 Mg/4 Ml Vial IV PUSH 40 mg BID KATHARINE Administration Glucagon 1 mg 08/19/24 11:52 Glucagon For Inj 1 Mg Vial IM PRN PRN Hypoglycemia Protocol Glucose 15 gm 08/19/24 11:52 Glucose Oral Gel 15 Gm Of Glucse In 37.5 Gm Tube PO PRN PRN Hypoglycemia Protocol Guaifenesin 600 mg 08/20/24 21:00 08/24/24 09:10 Guaifenesin 12 Hr 600 Mg Tabcr PO 600 mg Q12HR KATHARINE Administration Dextrose 1,000 mls @ 100 mls/hr 08/19/24 11:52 Dextrose 5% 1,000 Ml IVPB PRN PRN Hypoglycemia Protocol Piperacillin/Tazobactam/Dextrose 3.375 gm in 50 mls @ 100 mls/hr 08/22/24 12:00 08/24/24 06:01 Zosyn 3.375 Gm/Ns 50 Ml IVPB Infused Q6H KATHARINE Infusion Insulin Aspart 5 units 08/19/24 17:00 08/24/24 09:07 Insulin Aspart (*Bkc) 100 Units/Ml SUB-Q 5 units TIDWM KATHARINE Administration Insulin Aspart 3 - 6 units 08/19/24 17:00 08/24/24 09:11 Insulin Aspart (*Bkc) 100 Units/Ml SUB-Q Not Given TIDWM [facility] Protocol Insulin Aspart 1 - 3 units 08/19/24 21:00 08/23/24 20:12 Insulin Aspart (*Bkc) 100 Units/Ml SUB-Q 1 units HS [facility] Administration Protocol Insulin Glargine 15 units 08/19/24 21:00 08/24/24 09:08 Insulin Glargine (*Bkc) 100 Units/Ml SUB-Q 15 units Q12HR KATHARINE Administration Levothyroxine Sodium 75 mcg 08/20/24 06:30 08/24/24 05:31 Levothyroxine Sodium 75 Mcg Tablet PO 75 mcg DAILY@0630 [facility] Administration Levothyroxine Sodium 75 mcg 08/22/24 06:30 08/22/24 06:23 Levothyroxine Sodium 75 Mcg Tablet PO 75 mcg Ramirez@0630 [facility] Administration Loratadine 10 mg 08/19/24 21:00 08/23/24 20:13 Loratadine 10 Mg Tablet PO 10 mg QHS [facility] Administration Melatonin 5 mg 08/19/24 21:00 08/23/24 20:12 Melatonin 5 Mg Tablet PO 5 mg HS [facility] Administration Miconazole Nitrate 1 applic 08/19/24 17:00 08/24/24 09:11 Miconazole Nitrate 2% Cream 30 Gm Tube TOPICAL 1 applic BID [facility] Administration Nitroglycerin 0.4 mg 08/19/24 14:15 Nitroglycerin Sl 0.4 Mg Tablet SUBLINGUAL PRN PRN Chest Pain Ondansetron HCl 4 mg 08/19/24 06:47 08/20/24 10:36 Ondansetron Inj 4 Mg/2 Ml Vial IV PUSH 4 mg Q4H PRN Administration Nausea Rosuvastatin Calcium 10 mg 08/19/24 21:00 08/23/24 20:13 Rosuvastatin 10 Mg Tablet PO 10 mg HS KATHARINE Administration Silver Sulfadiazine 1 applic 08/20/24 09:00 08/24/24 09:12 Silver Sulfadiazine 1% Cr 50 Gm Jar (*Bkc) TOPICAL 1 applic DAILY KATHARINE Administration Triamcinolone Acetonide 1 applic 08/19/24 14:15 Triamcinolone Acet 0.1% Cream 15 Gm Tube TOPICAL BID PRN rash Zinc Oxide 1 applic 08/19/24 17:00 08/24/24 09:12 Zinc Oxide 20% Oint 30 Gm Tube TOPICAL 1 applic BID KATHARINE Administration Radiology Results: ITS Impressions Modified Barium Swallow 08/19/24 14:46 IMPRESSION: Mild pharyngeal dysphagia with laryngeal penetration without aspiration. Please correlate with speech pathologist findings and specific feeding recommendations. Chest X-Ray 08/22/24 09:35 IMPRESSION: Right upper lobe and left lower lobe pneumonia. Labs Labs: Laboratory Results - last 24 hr 08/23/24 08/23/24 08/24/24 16:15 20:05 04:27 WBC 14.6 H RBC 4.58 Hgb 12.1 Hct 38.6 MCV 84.3 MCH 26.4 MCHC 31.3 L RDW 14.3 Plt Count 237 MPV 11.2 H Sodium 136 L Potassium 3.3 L Chloride 101 Carbon Dioxide 29 Anion Gap 6 BUN 27 H Creatinine 0.65 L Estim Creat Clear Calc 56 Estimated GFR > 60 Glucose 159 H POC Capillary Glucose 156 H 235 H Calcium 9.5 Total Bilirubin 0.5 AST 22 ALT 13 Alkaline Phosphatase 77 Total Protein 6.0 L Albumin 3.5 08/24/24 08/24/24 07:41 11:34 WBC RBC Hgb Hct MCV MCH MCHC RDW Plt Count MPV Sodium Potassium Chloride Carbon Dioxide Anion Gap BUN Creatinine Estim Creat Clear Calc Estimated GFR Glucose POC Capillary Glucose 159 H 302 H Calcium Total Bilirubin AST ALT Alkaline Phosphatase Total Protein Albumin Quality VTE Prophylaxis VTE prophylaxis: pharmacologic ordered
[2024-08-24 17:05] LABS: Glucose Point of Care 221 mg/dl (65-105)
[2024-08-24] MEDS: ROSUVASTATIN 10 MG TABLET PO (20:25)
[2024-08-24] MEDS: ESCITALOPRAM OXALATE 10 MG TABLET PO (20:25)
[2024-08-24] MEDS: MELATONIN 5 MG TABLET PO (20:25)
[2024-08-24] MEDS: LORATADINE 10 MG TABLET PO (20:25)
[2024-08-24 20:49] LABS: Glucose Point of Care 231 mg/dl (65-105)
[2024-08-25] VITALS (12 sets, daily range): BP systolic 118–130; BP diastolic 48–84; PULSE 67–87; RESP 12–20; TEMP 36.5–37.1; O2SAT 93–97
[2024-08-25] MEDS: PIPERACILLN/TAZ 3.375GM/NS50ML 3.375 GM/50 ML BAG IVPB ×3 (05:00→17:04)
[2024-08-25 05:10] LABS: Hematocrit 38.9 % (37.0-47.0); Hemoglobin 12.2 g/dL (12.0-15.0); Mean Corpuscular HGB Conc 31.4 g/dl (32-36); Mean Corpuscular Volume 82.9 fl (80-100); Mean Platelet Volume 11.5 fl (7.4-10.4); Platelet Count Result 235 k/mm3 (150-375); Red Blood Count 4.69 M/mm3 (4.2-5.4); Red Cell Distribution Width 14.1 % (11.5-14.5); White Blood Count 13.9 K/mm3 (4.5-10.0)
[2024-08-25 05:21] LABS: Anion Gap 6 mmol/L (4-12); Blood Urea Nitrogen 29 mg/dL (7-17); Calcium 9.6 mg/dL (8.4-10.2); Carbon Dioxide 32 mmol/L (22-30); Chloride 99 mmol/L (98-107); Estimated CRCL calculation 54 ml/min; Estimated Glomerular Filt Rate > 60; Glucose 161 mg/dL (65-110); Magnesium 2.1 mg/dL (1.6-2.3); Potassium 3.2 mmol/L (3.4-5.0); Sodium 137 mmol/L (137-145)
[2024-08-25] MEDS: LEVOTHYROXINE SODIUM 75 MCG TABLET PO (05:25)
[2024-08-25 07:54] LABS: Glucose Point of Care 159 mg/dl (65-105)
[2024-08-25] MEDS: APIXABAN 5 MG TABLET PO ×2 (08:58→20:22)
[2024-08-25] MEDS: ALPRAZolam (*CRX) 0.25 MG TABLET PO (08:58)
[2024-08-25] MEDS: FLECAINIDE ACETATE 50 MG TABLET PO ×2 (08:58→20:23)
[2024-08-25] MEDS: POTASSIUM CHLORIDE 20 MEQ ER TABLET 40 MEQ PO (08:58)
[2024-08-25] MEDS: SILVER SULFADIAZINE 1% CR 50 GM JAR (*BKC) 1 APPLIC TOPICAL (08:59)
[2024-08-25] MEDS: DORZOLAMIDE HCL 2% OPHTH DROPS 2 DROP EACH EYE ×2 (08:59→20:24)
[2024-08-25] MEDS: FERROUS SULFATE 325 MG TABLET DR PO ×2 (08:59→17:04)
[2024-08-25] MEDS: FUROSEMIDE INJ 40 MG/4 ML VIAL IV PUSH ×2 (08:59→17:07)
[2024-08-25] MEDS: MICONAZOLE NITRATE 2% CREAM 30 GM TUBE 1 APPLIC TOPICAL (08:59)
[2024-08-25] MEDS: guaiFENesin 12 HR 600 MG TABCR PO ×2 (08:59→20:23)
[2024-08-25] MEDS: ZINC OXIDE 20% OINT 30 GM TUBE 1 APPLIC TOPICAL (08:59)
[2024-08-25] MEDS: INSULIN ASPART (*BKC) 100 UNITS/ML SUB-Q ×5 (08:59→20:59)
[2024-08-25] MEDS: INSULIN GLARGINE (*BKC) 100 UNITS/ML 15 UNITS SUB-Q ×2 (09:01→21:00)
[2024-08-25] MEDS: IPRATROPIUM 0.5 MG/ALBUTEROL SULFATE 2.5 MG AMPUL.NEB 3 ML INHALATION ×3 (10:21→21:32)
[2024-08-25 11:34] LABS: Glucose Point of Care 225 mg/dl (65-105)
--- NOTE | 2024-08-25 11:51 | PCNFU ---
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 We will continue current goal. Pt current nutrition is DBCC/Heart Healthy with Gerber BID and Glucerna shake BID. Last recorded weight is 79.5 kg down from 80.9 kg on admit. Bowel Motility: +BM reported 08/25 Labs Reviewed: Glu 161, Cr 0.67, BUN 29, K 3.2 Meds Noted:Eliquis, Lasix, Lantus, NovoLog, Zosyn Skin: stage III-sacrum. Additional Notes: Patient is tolerating DBCC/Heart Healthy diet with diet supplements of Gerber BID and Ensure Enlive BID. Agree with diet orders. Monitoring intakes, weights, labs, skin, meds, supplement tolerance, plan of care Follow up in 5 days
--- NOTE | 2024-08-25 12:10 | PM.IMPN ---
Progress Note: A&P Assessment and Plan (1) Nosocomial pneumonia: Code(s): J18.9 - Pneumonia, unspecified organism; Y95 - Nosocomial condition Status: Acute Assessment and Plan: Patient presents with SOB and hypoxia. CXR showing probable focal hazy opacity in the right upper lobe. No blood cultures collected. She was started on Rocephin and azithromycin. She was switched to Zosyn on 08/22/2024. White count has been stable in the 13-14K range. CT of the chest without contrast showed consolidation with crazy paving pattern in the right upper and bilateral lower lobes concerning for pneumonia versus edema versus infarct. Suspect PNA and CHF. Doubt pulmonary infarct since on eliquis Speech therapy evaluated the patient and did recommend regular diet with thin liquids. Material did enter the airway but it remained above the vocal cords and was ejected with multiple consistencies. She did have increasing oxygen requirement during hospitalization around August 22 but this has improved and she is now down to 2 L again which is her baseline. Discussed with family and all questions answered. They request pulmonary consult. (2) Hypoxic respiratory failure: Qualifiers: Chronicity: acute on chronic Qualified Code(s): J96.21 - Acute and chronic respiratory failure with hypoxia Code(s): J96.91 - Respiratory failure, unspecified with hypoxia Status: Acute Assessment and Plan: As above Patient on 2 L of oxygen at baseline by nasal cannula Monitor (3) Congestive heart failure: Qualifiers: Heart failure chronicity: acute on chronic Heart failure type: diastolic Qualified Code(s): I50.33 - Acute on chronic diastolic (congestive) heart failure Code(s): I50.9 - Heart failure, unspecified Status: Acute Assessment and Plan: BNP 2160. Chest imaging as above. Echo in November 2023 showing concentric LVH, EF 65-70%, Grade I diastolic fxn, severe with STACIE 1.1. Lasix IV given on admission. Started on Lasix IV daily but increased by BID on 08/23. Since increase in lasix, she has had a negative fluid balance and improving oxygen requirement. Monitor daily intake and output (4) Paroxysmal atrial fibrillation: Code(s): I48.0 - Paroxysmal atrial fibrillation Status: Acute Assessment and Plan: EKG showing AFib on admission. Continue Flecainide. 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 Continue AccuCheks covering with sliding scale. Hypoglycemia protocol available as needed. Continue to monitor. 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 She is a phyllis lift. She is confused. She has a suprapubic cath. Family wants it changed out here so will have urology consulted. (7) CATY (obstructive sleep apnea): Code(s): G47.33 - Obstructive sleep apnea (adult) (pediatric) Status: Acute Assessment and Plan: Encourage BiPAP use at night Plan Code status - DNR DVT prophylaxis - eliquis Possible discharge tomorrow Subjective Date/time seen: 08/25/24 12:10 Interval history: 83yo female with pAFib, CATY, MS requiring suprapubic cath, CHF, chronic hypoxic respiratory failure on 2 L O2, COPD, functional quadriplegic, ileostomy and DM here for SOB and hypoxia (saturation in low 80s). Assuming care. Chart reviewed. No problems overnight. Cough is nonproductive. No shortness of breath or chest pain today. She is a Phyllis lift. No nausea or vomiting. Patient is somewhat compliant with BiPAP overnight. Review of Systems Review of Systems: ROS unobtainable: Yes unobtainable due to mental status Exam Narrative: AF 97.7 130/48 77 18 95% 3L Gen - NARD Chest - coarse BS anteriroly, nml RR CV - RRR S1/S2 Abd - soft obese, suprapubic cath in place with site looking clean. Urine clear yellow in bag Ext - 1+ pedal edema. Neuro - alert, confused. oriented to location and angy name. Psych -pleasant and cooperative Skin - warm and dry Objective Data Vital Signs Vital Signs: Vital Signs - 24 hr 08/24/24 13:27 08/24/24 14:59 08/24/24 19:40 Temperature 97.8 F 97.7 F Pulse Rate 79 84 77 Respiratory Rate 14 20 20 Blood Pressure 138/62 123/97 H Pulse Oximetry 97 97 Oxygen Delivery Oxygen Flow Rate 08/24/24 20:00 08/24/24 20:45 08/24/24 20:45 Temperature Pulse Rate 70 Respiratory Rate 16 Blood Pressure Pulse Oximetry 95 97 Oxygen Delivery Nasal Cannula Nasal Cannula Oxygen Flow Rate 4 3 08/24/24 21:00 08/24/24 23:00 08/24/24 23:00 Temperature Pulse Rate 76 70 Respiratory Rate 20 23 H Blood Pressure Pulse Oximetry 96 90 Oxygen Delivery BiPAP Room Air Oxygen Flow Rate 08/25/24 02:00 08/25/24 03:55 08/25/24 08:55 Temperature 97.7 F Pulse Rate 71 67 Respiratory Rate 20 Blood Pressure 130/48 L Pulse Oximetry 93 97 97 Oxygen Delivery Nasal Cannula Nasal Cannula Oxygen Flow Rate 3 3 08/25/24 08:58 08/25/24 10:23 08/25/24 10:23 Temperature Pulse Rate 70 77 77 Respiratory Rate 18 18 Blood Pressure Pulse Oximetry 95 Oxygen Delivery Nasal Cannula Oxygen Flow Rate 3 Intake/Output Intake/Output: Intake & Output 08/22/24 08/23/24 08/24/24 08/25/24 23:59 23:59 23:59 23:59 Intake Total 1520 1990 1640 580 Output Total 900 2890 3425 800 Balance 620 -900 -1785 -220 Meds/Results Medications: Active Medications Generic Name Dose Route Start Last Admin Trade Name Freq PRN Reason Stop Dose Admin Acetaminophen 1,000 mg 08/19/24 14:15 08/19/24 16:21 Acetaminophen 500 Mg Tablet PO 1,000 mg Q6H PRN Administration pain Acetic Acid 30 ml 08/20/24 16:00 08/24/24 17:09 Acetic Acid 0.25% Irrig Soln 500 Ml IRRIGATION Not Given Q48H KATHARINE Albuterol/Ipratropium 3 ml 08/19/24 14:00 08/25/24 10:21 Ipratropium 0.5 Mg/Albuterol Sulfate 2.5 Mg Ampul.Neb 3 Ml INHALATION 3 ml TIDRT KATHARINE Administration Alprazolam 0.25 mg 08/21/24 10:23 08/25/24 08:58 Alprazolam (*Crx) 0.25 Mg Tablet PO 0.25 mg Q8HR PRN Administration Anxiety Apixaban 5 mg 08/19/24 21:00 08/25/24 08:58 Apixaban 5 Mg Tablet PO 5 mg Q12HR KATHARINE Administration Dextrose 12.5 gm 08/19/24 11:52 Dextrose 50% 25 Gm/50 Ml Syringe IV PUSH PRN PRN Hypoglycemia Protocol Dorzolamide HCl 2 drop 08/19/24 21:00 08/25/24 08:59 Dorzolamide Hcl 2% Ophth Drops EACH EYE 2 drop 0900,1200,2100 KATHARINE Administration Escitalopram Oxalate 10 mg 08/19/24 21:00 08/24/24 20:25 Escitalopram Oxalate 10 Mg Tablet PO 10 mg QHS KATHARINE Administration Ferrous Sulfate 325 mg 08/19/24 17:00 08/25/24 08:59 Ferrous Sulfate [address] PO 325 mg BIDWM KATHARINE Administration Flecainide Acetate 50 mg 08/19/24 21:00 08/25/24 08:58 Flecainide Acetate 50 Mg Tablet PO 50 mg Q12HR KATHARINE Administration Furosemide 40 mg 08/23/24 17:00 08/25/24 08:59 Furosemide Inj 40 Mg/4 Ml Vial IV PUSH 40 mg BID KATHARINE Administration Glucagon 1 mg 08/19/24 11:52 Glucagon For Inj 1 Mg Vial IM PRN PRN Hypoglycemia Protocol Glucose 15 gm 08/19/24 11:52 Glucose Oral Gel 15 Gm Of Glucse In 37.5 Gm Tube PO PRN PRN Hypoglycemia Protocol Guaifenesin 600 mg 08/20/24 21:00 08/25/24 08:59 Guaifenesin 12 Hr 600 Mg Tabcr PO 600 mg Q12HR KATHARINE Administration Dextrose 1,000 mls @ 100 mls/hr 08/19/24 11:52 Dextrose 5% 1,000 Ml IVPB PRN PRN Hypoglycemia Protocol Piperacillin/Tazobactam/Dextrose 3.375 gm in 50 mls @ 100 mls/hr 08/22/24 12:00 08/25/24 05:30 Zosyn 3.375 Gm/Ns 50 Ml IVPB Infused Q6H KATHARINE Infusion Insulin Aspart 5 units 08/19/24 17:00 08/25/24 08:59 Insulin Aspart (*Bkc) 100 Units/Ml SUB-Q 5 units TIDWM [facility] Administration Insulin Aspart 3 - 6 units 08/19/24 17:00 08/25/24 08:42 Insulin Aspart (*Bkc) 100 Units/Ml SUB-Q Not Given TIDWM [facility] Protocol Insulin Aspart 1 - 3 units 08/19/24 21:00 08/24/24 21:18 Insulin Aspart (*Bkc) 100 Units/Ml SUB-Q 1 units HS [facility] Administration Protocol Insulin Glargine 15 units 08/19/24 21:00 08/25/24 09:01 Insulin Glargine (*Bkc) 100 Units/Ml SUB-Q 15 units Q12HR KATHARINE Administration Levothyroxine Sodium 75 mcg 08/20/24 06:30 08/25/24 05:25 Levothyroxine Sodium 75 Mcg Tablet PO 75 mcg DAILY@30 KATHARINE Administration Levothyroxine Sodium 75 mcg 08/22/24 06:30 08/22/24 06:23 Levothyroxine Sodium 75 Mcg Tablet PO 75 mcg Ramirez@0630 [facility] Administration Loratadine 10 mg 08/19/24 21:00 08/24/24 20:25 Loratadine 10 Mg Tablet PO 10 mg QHS [facility] Administration Melatonin 5 mg 08/19/24 21:00 08/24/24 20:25 Melatonin 5 Mg Tablet PO 5 mg HS [facility] Administration Miconazole Nitrate 1 applic 08/19/24 17:00 08/25/24 08:59 Miconazole Nitrate 2% Cream 30 Gm Tube TOPICAL 1 applic BID KATHARINE Administration Nitroglycerin 0.4 mg 08/19/24 14:15 Nitroglycerin Sl 0.4 Mg Tablet SUBLINGUAL PRN PRN Chest Pain Non-Formulary Medication 1 drop 08/25/24 21:00 Bromfenac RIGHT EYE 09/24/24 20:59 [facility] Ondansetron HCl 4 mg 08/19/24 06:47 08/20/24 10:36 Ondansetron Inj 4 Mg/2 Ml Vial IV PUSH 4 mg Q4H PRN Administration Nausea Rosuvastatin Calcium 10 mg 08/19/24 21:00 08/24/24 20:25 Rosuvastatin 10 Mg Tablet PO 10 mg HS [facility] Administration Silver Sulfadiazine 1 applic 08/20/24 09:00 08/25/24 08:59 Silver Sulfadiazine 1% Cr 50 Gm Jar (*Bkc) TOPICAL 1 applic DAILY KATHARINE Administration Triamcinolone Acetonide 1 applic 08/19/24 14:15 Triamcinolone Acet 0.1% Cream 15 Gm Tube TOPICAL BID PRN rash Zinc Oxide 1 applic 08/19/24 17:00 08/25/24 08:59 Zinc Oxide 20% Oint 30 Gm Tube TOPICAL 1 applic BID KATHARINE Administration Radiology Results: ITS Impressions Modified Barium Swallow 08/19/24 14:46 IMPRESSION: Mild pharyngeal dysphagia with laryngeal penetration without aspiration. Please correlate with speech pathologist findings and specific feeding recommendations. Chest X-Ray 08/22/24 09:35 IMPRESSION: Right upper lobe and left lower lobe pneumonia. Chest CT 08/24/24 15:12 IMPRESSION: 1. Consolidation regions of crazy paving pattern in the right upper and bilateral lower lobes concerning for pneumonia with differential including pulmonary edema and pulmonary infarct. 2. Small left and very small right pleural effusions. 2. Cardiomegaly. Labs Labs: Laboratory Results - last 24 hr 08/21/24 08/24/24 08/24/24 10:33 16:54 19:42 WBC RBC Hgb Hct MCV MCH MCHC RDW Plt Count MPV Sodium Potassium Chloride Carbon Dioxide Anion Gap BUN Creatinine Estim Creat Clear Calc Estimated GFR Glucose POC Capillary Glucose 221 H 231 H Calcium Magnesium SARS-CoV-2 RNA (RT-PCR) Not detected 08/25/24 08/25/24 08/25/24 04:32 07:49 11:31 WBC 13.9 H RBC 4.69 Hgb 12.2 Hct 38.9 MCV 82.9 MCH 26.0 MCHC 31.4 L RDW 14.1 Plt Count 235 MPV 11.5 H Sodium 137 Potassium 3.2 L Chloride 99 Carbon Dioxide 32 H Anion Gap 6 BUN 29 H Creatinine 0.67 L Estim Creat Clear Calc 54 Estimated GFR > 60 Glucose 161 H POC Capillary Glucose 159 H 225 H Calcium 9.6 Magnesium 2.1 SARS-CoV-2 RNA (RT-PCR)
[2024-08-25 16:53] LABS: Glucose Point of Care 197 mg/dl (65-105)
[2024-08-25 18:28] LABS: Adenovirus DNA Not Detected (Not Detected); Chlamydophila pneumoniae Not Detected (Not Detected); Coronavirus 229E Not Detected (Not Detected); Coronavirus HKU1 Not Detected (Not Detected); Coronavirus NL63 Not Detected (Not Detected); Coronavirus OC43 Not Detected (Not Detected); Human Metapneumovirus Not Detected (Not Detected); Human Parainfluenza Virus 1 Not Detected (Not Detected); Human Parainfluenza Virus 2 Not Detected (Not Detected); Human Parainfluenza Virus 3 Not Detected (Not Detected); Human Parainfluenza Virus 4 Not Detected (Not Detected); Human RSV B Not Detected (Not Detected); Influenza A Not Detected (Not Detected); Influenza B Not Detected (Not Detected); Mycoplasma pneumoniae Not Detected (Not Detected); Rhinovirus/Enterovirus Not Detected (Not Detected)
[2024-08-25] MEDS: ROSUVASTATIN 10 MG TABLET PO (20:23)
[2024-08-25] MEDS: ESCITALOPRAM OXALATE 10 MG TABLET PO (20:23)
[2024-08-25] MEDS: MELATONIN 5 MG TABLET PO (20:23)
[2024-08-25] MEDS: LORATADINE 10 MG TABLET PO (20:23)
[2024-08-25 21:02] LABS: Glucose Point of Care 238 mg/dl (65-105)
[2024-08-26] VITALS (12 sets, daily range): BP systolic 120–136; BP diastolic 44–90; PULSE 64–87; RESP 14–25; TEMP 36.6–37; O2SAT 94–99
[2024-08-26] MEDS: PIPERACILLN/TAZ 3.375GM/NS50ML 3.375 GM/50 ML BAG IVPB ×5 (00:34→23:40)
[2024-08-26 05:36] LABS: Basophils Absolute Auto 0.1 K/mm3 (0.0-0.1); Basophils Percent Auto 0.7 % (0.2-1.2); Eosinophils Absolute Auto 0.8 K/mm3 (0-0.3); Eosinophils Percent Auto 5.8 % (0-4.4); Hematocrit 39.8 % (37.0-47.0); Hemoglobin 12.2 g/dL (12.0-15.0); Immature Granulocyte Absolute 0.08 K/mm3 (0.00-0.031); Immature Granulocyte Percent A 0.6 % (0-0.5); Lymphocytes Absolute Auto 1.96 K/mm3 (0.9-3.2); Lymphocytes Percent Auto 14.3 % (18.3-44.2); Mean Corpuscular HGB Conc 30.7 g/dl (32-36); Mean Corpuscular Volume 84.7 fl (80-100); Mean Platelet Volume 11.7 fl (7.4-10.4); Monocytes Absolute Auto 2.4 K/mm3 (0.1-0.6); Monocytes Percent Auto 17.8 % (2.6-8.5); Neutrophils Absolute Auto 8.3 K/mm3 (1.3-6.7); Neutrophils Percent Auto 60.8 % (45.5-73.1); Platelet Count Result 261 k/mm3 (150-375); Red Cell Distribution Width 13.9 % (11.5-14.5); White Blood Count 13.7 K/mm3 (4.5-10.0)
[2024-08-26] MEDS: LEVOTHYROXINE SODIUM 75 MCG TABLET PO (05:42)
[2024-08-26 05:44] LABS: Albumin Level 3.5 g/dL (3.5-5.1); Anion Gap 5 mmol/L (4-12); Blood Urea Nitrogen 26 mg/dL (7-17); Calcium 9.5 mg/dL (8.4-10.2); Carbon Dioxide 31 mmol/L (22-30); Chloride 100 mmol/L (98-107); Estimated CRCL calculation 52 ml/min; Estimated Glomerular Filt Rate > 60; Glucose 164 mg/dL (65-110); Phosphorus 3.3 mg/dL (2.5-4.5); Potassium 3.3 mmol/L (3.4-5.0); Sodium 136 mmol/L (137-145)
[2024-08-26] MEDS: IPRATROPIUM 0.5 MG/ALBUTEROL SULFATE 2.5 MG AMPUL.NEB 3 ML INHALATION ×3 (07:52→20:31)
[2024-08-26 08:28] LABS: Glucose Point of Care 168 mg/dl (65-105)
[2024-08-26 08:36] LABS: NT Pro B Type Natriuretic Pept 942 pg/mL (19.9-100)
[2024-08-26] MEDS: FERROUS SULFATE 325 MG TABLET DR PO ×2 (10:18→17:56)
[2024-08-26] MEDS: DORZOLAMIDE HCL 2% OPHTH DROPS 2 DROP EACH EYE ×3 (10:18→22:06)
[2024-08-26] MEDS: FLECAINIDE ACETATE 50 MG TABLET PO ×2 (10:18→22:07)
[2024-08-26] MEDS: APIXABAN 5 MG TABLET PO ×2 (10:18→22:07)
[2024-08-26] MEDS: guaiFENesin 12 HR 600 MG TABCR PO ×2 (10:18→22:07)
[2024-08-26] MEDS: FUROSEMIDE INJ 40 MG/4 ML VIAL IV PUSH ×2 (10:18→17:56)
[2024-08-26] MEDS: ZINC OXIDE 20% OINT 30 GM TUBE 1 APPLIC TOPICAL ×2 (10:19→17:56)
[2024-08-26] MEDS: SILVER SULFADIAZINE 1% CR 50 GM JAR (*BKC) 1 APPLIC TOPICAL (10:19)
[2024-08-26] MEDS: MICONAZOLE NITRATE 2% CREAM 30 GM TUBE 1 APPLIC TOPICAL ×2 (10:19→17:56)
[2024-08-26] MEDS: INSULIN ASPART (*BKC) 100 UNITS/ML SUB-Q ×4 (10:21→22:07)
[2024-08-26] MEDS: INSULIN GLARGINE (*BKC) 100 UNITS/ML 15 UNITS SUB-Q ×2 (10:21→22:11)
--- NOTE | 2024-08-26 10:45 | PM.CNPUL ---
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 08/26/2024: Today the patient tells me that she is breathing better than she arrived but not back to her normal. She has a persistent dry cough while she is eating breakfast. She has no hemoptysis. She is afebrile. White blood cell count is 13.7, creatinine is 0.7. BNP is 942 decreased from 17 20 on 08/20/2024. Procalcitonin is 0.1. Since 08/23/2024 she has diuresed 3 L and since admission she has diuresed 3.7 L. Her weight today is 83 kg. she did not wear positive airway pressure last night and currently she is on 2 L nasal cannula saturations 95%. Plan: Patient received ceftriaxone from 08/19/2024 through 08/22/2024 and received 5 days of azithromycin ending on 08/23/2024. Currently she is on Zosyn since 08/22, day 5. Her oxygenation has improved and she is back to her baseline of 2 L. she is afebrile. She has persistent leukocytosis but this is a chronic problem. would complete 2 more days of antibiotics. I suspect this represents recurrent aspiration pneumonia. I had a long discussion with her daughter Nancy. regarding maneuvers that could possibly help they did try chin tuck on her swallow with no improvement in the laryngeal penetration. I recommended the patient should be sitting upright for all meals and the daughter says frequently she is in a recliner or in a semi recumbent position when she eats. I have told them to ask for an order on her discharge papers to have her sit upright in wheelchair for all meals. We talked about NPO with PEG tube but this does not prevent aspiration of saliva and at this time the family does not wish for this. I suspect this will be a recurrent problem in the future. Patient is also improved her oxygenation with diuresis over the last 3 days. She has diuresed 3 L and she is now back to her baseline. Her BNP has improved today. She was on 40 mg of Lasix p.o. at the custodial and this may need to be increased on discharged. regarding her sleep apnea, the patient did not tolerate previous CPAP and has currently has been untreated for over a year and she would need an outpatient sleep study to requalify her for PAP if this were to be pursued. I discussed this with the family. Discussed with Dr. Mora, will sign off, call with questions History of Present Illness History of Present Illness Consult date: 08/26/24 Chief complaint: Acute Hypoxic on Chronic Hypercapnic Resp Failure Narrative: 08/26/2024: This is a new pulmonary consult for hypoxic respiratory failure 83-year-old with a history of a spastic neuro degenerative disease diagnosed at the [facility] in a her 40s that has left her paraplegic, AFib on Eliquis, diabetes, hypothyroidism congestive heart failure, CATY, heart failure with preserved ejection fraction and diastolic dysfunction grade 1, Moderate to severe aortic stenosis with a valve area of 1.1 on echo 11/17/2023 COPD is written in the chart but he patient denies asthma or COPD, she is a never smoker and denies having PFTs previously. The patient's daughter states that she does not have COPD. Regarding her obstructive sleep apnea. The daughter tells me she had a sleep study at home 7 years ago and was prescribed a CPAP machine. She does not know the settings. She use this at home for years but did not tolerate it well and pulled the mask off. When she ended up in the custodial it was not used and the custodial eventually said she would need a repeat sleep study for her to use the machine at that facility. The patient has chronic hypoxemic respiratory failure requiring 2 L nasal cannula. Patient presented on 08/19/2024 with shortness of breath, hypoxia and moderate to severe respiratory distress with coarse breath sounds and rales throughout. In the emergency she room room she was placed on BiPAP for work of breathing and had a venous blood gas of 7.36/48/36 on 100% and BiPAP 12/6. Chest x-ray showed congestion, right upper lobe infiltrate. 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 Her respiratory pathogen panel was negative. On 08/20/2024 progress note states she was short of breath. On 08/21 and says that she was better and she was on 2 L nasal cannula but had to increase to 4 L. On 08/22 it states she was worse and required high-flow nasal cannula oxygen with 40 L and 50% FiO2 with saturations 95%. She was placed on BiPAP at night. Her antibiotics were changed to Zosyn. She was started on IV Lasix. On 08/23/2024 the patient states she was better. She wore BiPAP at night and was on 2.5 L during the day. On 08/24/2024 she was on 2-4 L at night. She has Pseudomonas in her urine which was pansensitive. 08/26/2024: Today the patient tells me that she is breathing better than she arrived but not back to her normal. She has a persistent dry cough while she is eating breakfast. She has no hemoptysis. She is afebrile. White blood cell count is 13.7, creatinine is 0.7. BNP is 942 decreased from 17 20 on 08/20/2024. Procalcitonin is 0.1. Since 08/23/2024 she has diuresed 3 L and since admission she has diuresed 3.7 L. Her weight today is 83 kg. she did not wear positive airway pressure last night and currently she is on 2 L nasal cannula saturations 95%. DATA: 08/24/24: EXAMINATION: CT diagnostic chest wo con INDICATION: Resp failure COMPARISON: None FINDINGS: Small left and very small right pleural effusions. Groundglass opacity and more dense consolidation in the basilar segments of the left lower lobe. Additional infrahilar consolidation in the right lower lobe. There is a region of crazy paving opacity with groundglass opacity and surrounding septal line thickening in the anterior segment of the right upper lobe. Additional mild groundglass opacities and some smooth septal line thickening at the apices of lungs. Megaly. Atherosclerotic coronary artery calcific location. Aortic valve and mitral annular calcific location. No pericardial effusion. Thoracic aorta is normal in caliber. Enlargement of the central pulmonary arteries consistent with pulmonary arterial hypertension. Calcified right hilar and mediastinal lymph nodes along with multiple tiny splenic calcifications consistent with old granulomatous disease. No pathologically enlarged thoracic lymphadenopathy. Cholecystectomy clips the gallbladder fossa. Mild thoracic spondylosis with bridging osteophytes at multiple levels consistent with diffuse idiopathic skeletal hyperostosis (DISH). IMPRESSION: 1. Consolidation regions of crazy paving pattern in the right upper and bilateral lower lobes concerning for pneumonia with differential including pulmonary edema and pulmonary infarct. 2. Small left and very small right pleural effusions. 2. Cardiomegaly. Review of Systems Constitutional: Constitutional: Reports no additional constitutional complaints Eyes: Eyes: Reports no additional eye complaints ENT: Reports system reviewed and no additional complaints, except as documented Cardiovascular: Cardiovascular: Reports no additional cardiovascular complaints Respiratory: Respiratory: Reports no additional respiratory complaints Gastrointestinal: Gastrointestinal: Reports no additional gastrointestinal complaints Musculoskeletal: Musculoskeletal: Reports no additional musculoskeletal complaints Neurologic: Reports system reviewed and no additional complaints, except as documented Psychiatric: Psychiatric: Reports no additional psychiatric complaints Endocrine: Endocrine: Reports no additional endocrine complaints Hematologic/Lymphatic: Hematologic/Lymphatic: Reports no additional hematologic/lymphatic complaints Allergic/Immunologic: Allergic/Immunologic: Reports no additional allergic/immunologic complaints [facility] Past Medical History Medical History Chronic anticoagulation Paroxysmal atrial fibrillation Obstructive sleep apnea Noncompliant with CPAP. Transient ischemic attack Gastroesophageal reflux disease Familial spastic paraplegia Glaucoma History of pulmonary embolism Multiple sclerosis Suprapubic catheter in place. 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 History of suprapubic catheter History of hysterectomy Family History Family History Father Spastic paralysis Mother Breast cancer Social History Social History Social History: Surrogate medical decision maker: Ange Reyes or Nancy John, hank. Code status: Full code. Smoking status: Never smoker Second hand tobacco smoke exposure: No Alcohol intake: never Substance use: never Substance use type: does not use Do You Feel Safe in your Home?: Yes Lack of Transportation: No Lack of Food: Never True Current Housing: I Have Housing Concerned About Future Housing: No Difficulty Paying Gas/Electric Bills: No Difficulty Paying for Meds: No Currently Unemployed: No Education: High School Diploma/GED Difficulty w/ Childcare or Family Care: No Living arrangements: custodial Additional living arrangements comments: [facility]. Has 3 daughters. 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 Spiritual care concerns: No Meds Home Medications and Allergies Home Medications ?Medication ?Instructions ?Recorded ?Confirmed ?Type apixaban 5 mg tablet (Eliquis) 5 mg PO BID 03/11/22 08/19/24 History cranberry extract 425 mg capsule 425 mg PO DAILY 03/11/22 08/19/24 History dorzolamide 2 % eye drops 2 drp EACH EYE TID 03/11/22 08/19/24 History flecainide 50 mg tablet 50 mg PO BID 03/11/22 08/19/24 History levothyroxine 75 mcg tablet 75 mcg PO DAILY 03/11/22 08/19/24 History nitroglycerin 0.4 mg sublingual 0.4 mg sublingual PRN PRN Chest 03/11/22 08/19/24 History tablet Pain rosuvastatin 10 mg tablet 10 mg PO HS 03/11/22 08/19/24 History arginine-vitamin C-vitamin E oral 1 g PO BID 10/28/22 08/19/24 History 4.5 gram-156 mg/9.2 gram powder pkt (Arginaid) escitalopram oxalate 10 mg tablet 10 mg PO QHS 10/28/22 08/19/24 History furosemide 40 mg tablet 40 mg PO DAILY #30 tabs 11/01/22 08/19/24 Rx acetaminophen 500 mg capsule 1,000 mg PO Q6H PRN pain 11/03/22 08/19/24 History bromfenac 0.09 % eye drops 1 drp RIGHT EYE HS 11/03/22 08/19/24 History melatonin 5 mg tablet 5 mg PO HS #30 tabs 11/06/22 08/19/24 Rx Saccharomyces boulardii 250 mg 250 mg PO BID 05/11/23 08/19/24 History capsule (Florastor) acetic acid 0.25 % irrigation 30 ml irrigation EVERY OTHER DAY 12/24/23 04/03/25 History solution hyoscyamine sulfate 0.125 mg tablet 0.125 mg PO BID PRN cramping 05/11/23 08/19/24 History nystatin 100,000 unit/gram topical 1 applic topical BID 05/11/23 08/19/24 History cream ciclopirox 0.77 % topical gel 1 applic topical HS 11/13/23 08/19/24 History pantoprazole 40 mg tablet,delayed 40 mg PO DAILY 11/13/23 08/19/24 History release albuterol sulfate 90 mcg/actuation 2 puff inhalation PRN asthma 05/19/24 08/19/24 History aerosol inhaler ferrous sulfate 325 mg (65 mg 325 mg PO BID 05/19/24 08/19/24 History iron) tablet (Kassie-Time) insulin glargine 100 unit/mL (3 22 unit subcut QPM 05/19/24 08/19/24 History mL) subcutaneous pen (Lantus Solostar U-100 Insulin) insulin glargine 100 unit/mL 25 unit subcut DAILY 05/19/24 08/19/24 History subcutaneous solution (Lantus U-100 Insulin) insulin lispro 10 unit subcut TID 05/19/24 08/19/24 History insulin lispro 100 unit/mL 1 sliding scale dose subcut TID 05/19/24 08/19/24 History subcutaneous pen (Humalog KwikPen (U-100) Insulin) triamcinolone acetonide 0.1 % 1 applic topical BID PRN rash 05/19/24 08/19/24 History topical cream ketoconazole 2 % topical cream 1 applic topical BID 05/20/24 08/19/24 History levothyroxine 150 mcg tablet 150 mcg PO .friday05/20/24 08/19/24 History loratadine 10 mg tablet 10 mg PO QHS #20 tabs 05/28/24 08/19/24 Rx ipratropium 0.5 mg-albuterol 3 mg 3 ml inhalation TID 06/03/24 08/19/24 History (2.5 mg base)/3 mL nebulization soln levothyroxine 75 mcg tablet 150 mcg PO DAILY 06/03/24 08/19/24 History silver sulfadiazine 1 % topical 1 applic topical DAILY 06/03/24 08/19/24 History cream Allergies Allergy/AdvReac Type Severity Reaction Status Date / Time black pepper Allergy Unknown Verified 11/18/23 11:20 diltiazem Allergy Unknown Verified 11/18/23 11:20 donepezil Allergy Unknown Verified 11/18/23 11:20 fluticasone Allergy Unknown Verified 11/18/23 11:20 metformin Allergy Unknown Verified 11/18/23 11:20 Vital Signs Vital Signs - 24 hr 08/25/24 13:58 08/25/24 14:00 08/25/24 14:05 Temperature 36.7 C Pulse Rate 87 79 84 Respiratory Rate 20 12 20 Blood Pressure 122/84 Pulse Oximetry 94 Oxygen Delivery Oxygen Flow Rate Fraction of Inspired Oxygen 08/25/24 17:19 08/25/24 20:00 08/25/24 21:32 Temperature Pulse Rate 84 69 Respiratory Rate 20 16 Blood Pressure Pulse Oximetry 97 97 94 Oxygen Delivery Nasal Cannula Nasal Cannula Nasal Cannula Oxygen Flow Rate 2 2 2 Fraction of Inspired Oxygen 32 08/25/24 21:32 08/25/24 22:00 08/26/24 05:57 Temperature 37.1 C 37.0 C Pulse Rate 69 73 72 Respiratory Rate 16 16 16 Blood Pressure 118/51 L 120/52 L Pulse Oximetry 94 95 Oxygen Delivery Oxygen Flow Rate Fraction of Inspired Oxygen 08/26/24 07:52 08/26/24 10:18 Temperature Pulse Rate 68 74 Respiratory Rate 16 Blood Pressure Pulse Oximetry Oxygen Delivery Oxygen Flow Rate Fraction of Inspired Oxygen Exam Const: General: cooperative, healthy appearing and comfortable Orientation/consciousness: oriented to person and oriented to place HENMT: Head: normal to inspection Ears: hearing grossly normal bilaterally Eyes: General: appearance normal, both eyes and all related structures Neck: Neck: normal visual inspection Chest: Chest palpation & inspection: normal inspection of the chest Resp: Effort & Inspection: normal respiratory effort and able to speak in complete sentences Auscultation: no crackles, rales, no rhonchi, no wheezes and lung sounds not diminished Other: coarse rales right greater than left no wheezes. Cardio: Jugular venous distension: no JVD GI: Inspection: normal to inspection GI Palp: No abdominal tenderness Skin: General skin exam: normal color Neuro: General: oriented to person and oriented to place Other: Unable to move lower extremities. Extrem: General: normal to inspection Psych: Appearance: grossly normal Results Laboratory Findings 08/26/24 04:40 08/26/24 04:40 ABG, PT/INR, D-dimer: PT/INR, D-dimer PT 14.3 Seconds (11.1-14.7) 08/19/24 06:02 INR 1.1 08/19/24 06:02 Abnormal lab findings: Abnormal Labs 08/19/24 08/19/24 08/19/24 06:02 11:09 11:52 WBC 14.9 H RBC 5.41 H MCH MCHC 31.4 L RDW 14.6 H MPV 10.9 H Immature Gran % (Auto) Lymph % (Auto) 16.1 L [place] % (Auto) 15.5 H Eos % (Auto) [place] # (Auto) 2.3 H Eos # (Auto) 0.5 H Abs Immat Gran (auto) 0.06 H Absolute Neuts (auto) 9.6 H VBG pCO2 48.3 H Sodium Potassium 3.3 L Carbon Dioxide BUN Creatinine 0.60 L Glucose 175 H POC Capillary Glucose 156 H Hemoglobin A1c 7.1 H NT-Pro-B Natriuret Pep 2160 H Total Protein Urine Appearance Ur Blood (Man) Urine Nitrate Leukocyte Esterase Rfl Urine WBC Uric Acid Crystals Urine Bacteria 08/19/24 08/19/24 08/19/24 15:25 15:34 17:27 WBC RBC MCH MCHC RDW MPV Immature Gran % (Auto) Lymph % (Auto) [place] % (Auto) Eos % (Auto) [place] # (Auto) Eos # (Auto) Abs Immat Gran (auto) Absolute Neuts (auto) VBG pCO2 Sodium 134 L Potassium Carbon Dioxide BUN Creatinine 0.58 L Glucose 221 H POC Capillary Glucose 207 H Hemoglobin A1c NT-Pro-B Natriuret Pep Total Protein Urine Appearance Turbid H Ur Blood (Man) 1+ H Urine Nitrate Positive H Leukocyte Esterase Rfl 3+ H Urine WBC 11-20 H Uric Acid Crystals Present H Urine Bacteria 1+ H 08/19/24 08/20/24 08/20/24 19:49 04:32 07:05 WBC 13.7 H RBC MCH 25.9 L MCHC 31.0 L RDW 14.6 H MPV 10.8 H Immature Gran % (Auto) Lymph % (Auto) [place] % (Auto) Eos % (Auto) [place] # (Auto) Eos # (Auto) Abs Immat Gran (auto) Absolute Neuts (auto) VBG pCO2 Sodium 136 L Potassium Carbon Dioxide BUN Creatinine 0.64 L Glucose 147 H POC Capillary Glucose 192 H 138 H Hemoglobin A1c NT-Pro-B Natriuret Pep 1720 H Total Protein Urine Appearance Ur Blood (Man) Urine Nitrate Leukocyte Esterase Rfl Urine WBC Uric Acid Crystals Urine Bacteria 08/20/24 08/20/24 08/20/24 11:12 15:41 20:02 WBC RBC MCH MCHC RDW MPV Immature Gran % (Auto) Lymph % (Auto) [place] % (Auto) Eos % (Auto) [place] # (Auto) Eos # (Auto) Abs Immat Gran (auto) Absolute Neuts (auto) VBG pCO2 Sodium Potassium Carbon Dioxide BUN Creatinine Glucose POC Capillary Glucose 158 H 171 H 181 H Hemoglobin A1c NT-Pro-B Natriuret Pep Total Protein Urine Appearance Ur Blood (Man) Urine Nitrate Leukocyte Esterase Rfl Urine WBC Uric Acid Crystals Urine Bacteria 08/21/24 08/21/24 08/21/24 04:35 07:28 11:20 WBC 14.2 H RBC MCH MCHC 31.2 L RDW MPV 11.0 H Immature Gran % (Auto) Lymph % (Auto) [place] % (Auto) Eos % (Auto) [place] # (Auto) Eos # (Auto) Abs Immat Gran (auto) Absolute Neuts (auto) VBG pCO2 Sodium 136 L Potassium Carbon Dioxide BUN Creatinine 0.66 L Glucose 158 H POC Capillary Glucose 170 H 224 H Hemoglobin A1c NT-Pro-B Natriuret Pep Total Protein Urine Appearance Ur Blood (Man) Urine Nitrate Leukocyte Esterase Rfl Urine WBC Uric Acid Crystals Urine Bacteria 08/21/24 08/21/24 08/22/24 15:35 20:09 04:48 WBC 13.9 H RBC MCH MCHC 31.5 L RDW MPV 10.6 H Immature Gran % (Auto) Lymph % (Auto) [place] % (Auto) Eos % (Auto) [place] # (Auto) Eos # (Auto) Abs Immat Gran (auto) Absolute Neuts (auto) VBG pCO2 Sodium 136 L Potassium Carbon Dioxide BUN 19 H Creatinine 0.65 L Glucose 147 H POC Capillary Glucose 173 H 166 H Hemoglobin A1c NT-Pro-B Natriuret Pep Total Protein Urine Appearance Ur Blood (Man) Urine Nitrate Leukocyte Esterase Rfl Urine WBC Uric Acid Crystals Urine Bacteria 08/22/24 08/22/24 08/22/24 07:25 11:21 15:33 WBC RBC MCH MCHC RDW MPV Immature Gran % (Auto) Lymph % (Auto) [place] % (Auto) Eos % (Auto) [place] # (Auto) Eos # (Auto) Abs Immat Gran (auto) Absolute Neuts (auto) VBG pCO2 Sodium Potassium Carbon Dioxide BUN Creatinine Glucose POC Capillary Glucose 157 H 160 H 231 H Hemoglobin A1c NT-Pro-B Natriuret Pep Total Protein Urine Appearance Ur Blood (Man) Urine Nitrate Leukocyte Esterase Rfl Urine WBC Uric Acid Crystals Urine Bacteria 08/22/24 08/23/24 08/23/24 20:35 04:44 07:25 WBC 13.4 H RBC MCH 25.8 L MCHC 31.1 L RDW MPV 10.6 H Immature Gran % (Auto) Lymph % (Auto) [place] % (Auto) Eos % (Auto) [place] # (Auto) Eos # (Auto) Abs Immat Gran (auto) Absolute Neuts (auto) VBG pCO2 Sodium Potassium Carbon Dioxide BUN 23 H Creatinine Glucose 166 H POC Capillary Glucose 179 H 175 H Hemoglobin A1c NT-Pro-B Natriuret Pep Total Protein Urine Appearance Ur Blood (Man) Urine Nitrate Leukocyte Esterase Rfl Urine WBC Uric Acid Crystals Urine Bacteria 08/23/24 08/23/24 08/23/24 11:38 16:15 20:05 WBC RBC MCH MCHC RDW MPV Immature Gran % (Auto) Lymph % (Auto) [place] % (Auto) Eos % (Auto) [place] # (Auto) Eos # (Auto) Abs Immat Gran (auto) Absolute Neuts (auto) VBG pCO2 Sodium Potassium Carbon Dioxide BUN Creatinine Glucose POC Capillary Glucose 223 H 156 H 235 H Hemoglobin A1c NT-Pro-B Natriuret Pep Total Protein Urine Appearance Ur Blood (Man) Urine Nitrate Leukocyte Esterase Rfl Urine WBC Uric Acid Crystals Urine Bacteria 08/24/24 08/24/24 08/24/24 04:27 07:41 11:34 WBC 14.6 H RBC MCH MCHC 31.3 L RDW MPV 11.2 H Immature Gran % (Auto) Lymph % (Auto) [place] % (Auto) Eos % (Auto) [place] # (Auto) Eos # (Auto) Abs Immat Gran (auto) Absolute Neuts (auto) VBG pCO2 Sodium 136 L Potassium 3.3 L Carbon Dioxide BUN 27 H Creatinine 0.65 L Glucose 159 H POC Capillary Glucose 159 H 302 H Hemoglobin A1c NT-Pro-B Natriuret Pep Total Protein 6.0 L Urine Appearance Ur Blood (Man) Urine Nitrate Leukocyte Esterase Rfl Urine WBC Uric Acid Crystals Urine Bacteria 08/24/24 08/24/24 08/25/24 16:54 19:42 04:32 WBC 13.9 H RBC MCH MCHC 31.4 L RDW MPV 11.5 H Immature Gran % (Auto) Lymph % (Auto) [place] % (Auto) Eos % (Auto) [place] # (Auto) Eos # (Auto) Abs Immat Gran (auto) Absolute Neuts (auto) VBG pCO2 Sodium Potassium 3.2 L Carbon Dioxide 32 H BUN 29 H Creatinine 0.67 L Glucose 161 H POC Capillary Glucose 221 H 231 H Hemoglobin A1c NT-Pro-B Natriuret Pep Total Protein Urine Appearance Ur Blood (Man) Urine Nitrate Leukocyte Esterase Rfl Urine WBC Uric Acid Crystals Urine Bacteria 08/25/24 08/25/24 08/25/24 07:49 11:31 16:48 WBC RBC MCH MCHC RDW MPV Immature Gran % (Auto) Lymph % (Auto) [place] % (Auto) Eos % (Auto) [place] # (Auto) Eos # (Auto) Abs Immat Gran (auto) Absolute Neuts (auto) VBG pCO2 Sodium Potassium Carbon Dioxide BUN Creatinine Glucose POC Capillary Glucose 159 H 225 H 197 H Hemoglobin A1c NT-Pro-B Natriuret Pep Total Protein Urine Appearance Ur Blood (Man) Urine Nitrate Leukocyte Esterase Rfl Urine WBC Uric Acid Crystals Urine Bacteria 08/25/24 08/26/24 08/26/24 20:59 04:35 04:40 WBC 13.7 H RBC MCH MCHC 30.7 L RDW MPV 11.7 H Immature Gran % (Auto) 0.6 H Lymph % (Auto) 14.3 L [place] % (Auto) 17.8 H Eos % (Auto) 5.8 H [place] # (Auto) 2.4 H Eos # (Auto) 0.8 H Abs Immat Gran (auto) 0.08 H Absolute Neuts (auto) 8.3 H VBG pCO2 Sodium 136 L Potassium 3.3 L Carbon Dioxide 31 H BUN 26 H Creatinine Glucose 164 H POC Capillary Glucose 238 H Hemoglobin A1c NT-Pro-B Natriuret Pep 942 H Total Protein Urine Appearance Ur Blood (Man) Urine Nitrate Leukocyte Esterase Rfl Urine WBC Uric Acid Crystals Urine Bacteria 08/26/24 08:27 WBC RBC MCH MCHC RDW MPV Immature Gran % (Auto) Lymph % (Auto) [place] % (Auto) Eos % (Auto) [place] # (Auto) Eos # (Auto) Abs Immat Gran (auto) Absolute Neuts (auto) VBG pCO2 Sodium Potassium Carbon Dioxide BUN Creatinine Glucose POC Capillary Glucose 168 H Hemoglobin A1c NT-Pro-B Natriuret Pep Total Protein Urine Appearance Ur Blood (Man) Urine Nitrate Leukocyte Esterase Rfl Urine WBC Uric Acid Crystals Urine Bacteria Diagnostic Findings Additional studies: ITS Impressions Chest X-Ray 08/19/24 06:41 Impression: Probable focal hazy opacity right upper lobe. Focal pneumonia is a consideration. Mild central congestive changes. Stable mild cardiomegaly. Modified Barium Swallow 08/19/24 14:46 IMPRESSION: Mild pharyngeal dysphagia with laryngeal penetration without aspiration. Please correlate with speech pathologist findings and specific feeding recommendations. Chest X-Ray 08/22/24 09:35 IMPRESSION: Right upper lobe and left lower lobe pneumonia. Chest CT 08/24/24 15:12
[2024-08-26 10:47] LABS: Procalcitonin 0.1 ng/mL
[2024-08-26 11:47] LABS: Glucose Point of Care 249 mg/dl (65-105)
--- NOTE | 2024-08-26 15:05 | WPDURCON ---
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 Tubing secured off tension to upper thigh. - OK to irrigate catheter PRN with 25-50mL sterile water or normal saline for sediment/clogging. OK to continue home acetic acid flushes every other day to optimize catheter patency. - Follow-up in clinic in 3-4 weeks for next exchange. - Urology to follow peripherally. Please call with questions. Urology Consult Note HPI Date Seen: 08/26/24 Requesting Physician: Angelito Yi MD Primary Care Provider: Julian Butt, DO Consult Narrative Reason for consult: Suprapubic tube exchange Narrative: Perla Leon is an 83 year old female well known to our practice for management of suprapubic tube due to atonic bladder. She last had uncomplicated SPT exchange in clinic 08/13/24. Urology consulted today to assist with exchange as she was previously scheduled for exchange in clinic next week. She was admitted 08/19/24 from a nursing facility with hypoxic respiratory failure, suspected recurrent aspiration PNA. DNR code status noted. Renal function stable, Cr 0.7. Urine culture grew pseudomonas, but urine sample was likely collected from old SP tube (contamination/colonization). Patient comfortable on exam, pleasantly confused which is apparently her baseline. Denies complaints. Daughter present, updates given. Review of Systems Review of Systems: ROS unobtainable: Yes unobtainable due to mental status PMFSH Past Medical History Medical History Chronic anticoagulation Paroxysmal atrial fibrillation Obstructive sleep apnea Noncompliant with CPAP. Transient ischemic attack Gastroesophageal reflux disease Familial spastic paraplegia Glaucoma History of pulmonary embolism Multiple sclerosis Suprapubic catheter in place. 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 History of suprapubic catheter History of hysterectomy Family History Family History Father Spastic paralysis Mother Breast cancer Social History Social History Social History: Surrogate medical decision maker: Ange Reyes or Nancy John, daughters. Code status: Full code. Smoking status: Never smoker Second hand tobacco smoke exposure: No Alcohol intake: never Substance use: never Substance use type: does not use Do You Feel Safe in your Home?: Yes Lack of Transportation: No Lack of Food: Never True Current Housing: I Have Housing Concerned About Future Housing: No Difficulty Paying Gas/Electric Bills: No Difficulty Paying for Meds: No Currently Unemployed: No Education: High School Diploma/GED Difficulty w/ Childcare or Family Care: No Living arrangements: jail Additional living arrangements comments: [facility]. Has 3 daughters. 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 Spiritual care concerns: No Meds Home Medications and Allergies Home Medications ?Medication ?Instructions ?Recorded ?Confirmed ?Type apixaban 5 mg tablet (Eliquis) 5 mg PO BID 03/11/22 08/19/24 History cranberry extract 425 mg capsule 425 mg PO DAILY 03/11/22 08/19/24 History dorzolamide 2 % eye drops 2 drp EACH EYE TID 03/11/22 08/19/24 History flecainide 50 mg tablet 50 mg PO BID 03/11/22 08/19/24 History levothyroxine 75 mcg tablet 75 mcg PO DAILY 03/11/22 08/19/24 History nitroglycerin 0.4 mg sublingual 0.4 mg sublingual PRN PRN Chest 03/11/22 08/19/24 History tablet Pain rosuvastatin 10 mg tablet 10 mg PO HS 03/11/22 08/19/24 History arginine-vitamin C-vitamin E oral 1 g PO BID 10/28/22 08/19/24 History 4.5 gram-156 mg/9.2 gram powder pkt (Arginaid) escitalopram oxalate 10 mg tablet 10 mg PO QHS 10/28/22 08/19/24 History furosemide 40 mg tablet 40 mg PO DAILY #30 tabs 11/01/22 08/19/24 Rx acetaminophen 500 mg capsule 1,000 mg PO Q6H PRN pain 11/03/22 08/19/24 History bromfenac 0.09 % eye drops 1 drp RIGHT EYE HS 11/03/22 08/19/24 History melatonin 5 mg tablet 5 mg PO HS #30 tabs 11/06/22 08/19/24 Rx Saccharomyces boulardii 250 mg 250 mg PO BID 05/11/23 08/19/24 History capsule (Florastor) acetic acid 0.25 % irrigation 30 ml irrigation EVERY OTHER DAY 05/11/23 08/19/24 History solution hyoscyamine sulfate 0.125 mg tablet 0.125 mg PO BID PRN cramping 05/11/23 08/19/24 History nystatin 100,000 unit/gram topical 1 applic topical BID 05/11/23 08/19/24 History cream ciclopirox 0.77 % topical gel 1 applic topical HS 11/13/23 08/19/24 History pantoprazole 40 mg tablet,delayed 40 mg PO DAILY 11/13/23 08/19/24 History release albuterol sulfate 90 mcg/actuation 2 puff inhalation PRN asthma 05/19/24 08/19/24 History aerosol inhaler ferrous sulfate 325 mg (65 mg 325 mg PO BID 05/19/24 08/19/24 History iron) tablet (Kassie-Time) insulin glargine 100 unit/mL (3 22 unit subcut QPM 05/19/24 08/19/24 History mL) subcutaneous pen (Lantus Solostar U-100 Insulin) insulin glargine 100 unit/mL 25 unit subcut DAILY 05/19/24 08/19/24 History subcutaneous solution (Lantus U-100 Insulin) insulin lispro 10 unit subcut TID 05/19/24 08/19/24 History insulin lispro 100 unit/mL 1 sliding scale dose subcut TID 05/19/24 08/19/24 History subcutaneous pen (Humalog KwikPen (U-100) Insulin) triamcinolone acetonide 0.1 % 1 applic topical BID PRN rash 05/19/24 08/19/24 History topical cream ketoconazole 2 % topical cream 1 applic topical BID 05/20/24 08/19/24 History levothyroxine 150 mcg tablet 150 mcg PO .friday05/20/24 08/19/24 History loratadine 10 mg tablet 10 mg PO QHS #20 tabs 05/28/24 08/19/24 Rx ipratropium 0.5 mg-albuterol 3 mg 3 ml inhalation TID 06/03/24 08/19/24 History (2.5 mg base)/3 mL nebulization soln levothyroxine 75 mcg tablet 150 mcg PO DAILY 06/03/24 08/19/24 History silver sulfadiazine 1 % topical 1 applic topical DAILY 06/03/24 08/19/24 History cream Allergies Allergy/AdvReac Type Severity Reaction Status Date / Time black pepper Allergy Unknown Verified 11/18/23 11:20 diltiazem Allergy Unknown Verified 11/18/23 11:20 donepezil Allergy Unknown Verified 11/18/23 11:20 fluticasone Allergy Unknown Verified 11/18/23 11:20 metformin Allergy Unknown Verified 11/18/23 11:20 Vital Signs Vital Signs - 24 hr 08/25/24 17:19 08/25/24 20:00 08/25/24 21:32 Temperature Pulse Rate 84 69 Respiratory Rate 20 16 Blood Pressure Pulse Oximetry 97 97 94 Oxygen Delivery Nasal Cannula Nasal Cannula Nasal Cannula Oxygen Flow Rate 2 2 2 Fraction of Inspired Oxygen 32 08/25/24 21:32 08/25/24 22:00 08/26/24 05:57 Temperature 98.7 F 98.6 F Pulse Rate 69 73 72 Respiratory Rate 16 16 16 Blood Pressure 118/51 L 120/52 L Pulse Oximetry 94 95 Oxygen Delivery Oxygen Flow Rate Fraction of Inspired Oxygen 08/26/24 07:52 08/26/24 10:18 08/26/24 14:00 Temperature 98.3 F Pulse Rate 68 74 70 Respiratory Rate 16 14 Blood Pressure 129/90 Pulse Oximetry 96 Oxygen Delivery Oxygen Flow Rate Fraction of Inspired Oxygen 08/26/24 14:50 08/26/24 14:56 Temperature Pulse Rate 64 67 Respiratory Rate 24 H 24 H Blood Pressure Pulse Oximetry Oxygen Delivery Oxygen Flow Rate Fraction of Inspired Oxygen Exam Const: General: comfortable and no acute distress Resp: Effort & Inspection: normal respiratory effort GI: Other: Ostomy intact Urinary Catheter: Urinary Catheter: patent and draining and other (SPT draining pale yellow urine with sediment) Skin: General skin exam: normal color Neuro: Speech: normal speech Psych: Affect: normal affect Results Labs 08/26/24 04:40 08/26/24 04:40 Labs: Short CBC 08/26/24 Range/Units 04:40 WBC 13.7 H (4.5-10.0) K/mm3 Hgb 12.2 (12.0-15.0) g/dL Hct 39.8 (37.0-47.0) % Plt Count 261 (150-375) k/mm3 BMP 08/26/24 04:40 Sodium 136 L Potassium 3.3 L Chloride 100 Carbon Dioxide 31 H BUN 26 H Creatinine 0.70 Glucose 164 H Calcium 9.5 Liver Function 08/26/24 Range/Units 04:40 Albumin 3.5 (3.5-5.1) g/dL
--- NOTE | 2024-08-26 15:32 | PM.IMPN ---
Progress Note: A&P Assessment and Plan (1) Nosocomial pneumonia: Code(s): J18.9 - Pneumonia, unspecified organism; Y95 - Nosocomial condition Status: Acute Assessment and Plan: Patient presents with SOB and hypoxia. CXR showing probable focal hazy opacity in the right upper lobe. No blood cultures collected. She was started on Rocephin and azithromycin. She was switched to Zosyn on 08/22/2024. White count has been stable in the 13-14K range. CT of the chest without contrast showed consolidation with crazy paving pattern in the right upper and bilateral lower lobes concerning for pneumonia versus edema versus infarct. Suspect PNA and CHF. Doubt pulmonary infarct since on eliquis Speech therapy evaluated the patient and did recommend regular diet with thin liquids. Material did enter the airway but it remained above the vocal cords and was ejected with multiple consistencies. She did have increasing oxygen requirement during hospitalization around August 22 but this has improved and she is now down to 2 L again which is her baseline. Discussed with family and all questions answered. Pulmonary consult ed and appreciate their input. (2) Hypoxic respiratory failure: Qualifiers: Chronicity: acute on chronic Qualified Code(s): J96.21 - Acute and chronic respiratory failure with hypoxia Code(s): J96.91 - Respiratory failure, unspecified with hypoxia Status: Acute Assessment and Plan: As above Patient on 2 L of oxygen at baseline by nasal cannula Monitor (3) Congestive heart failure: Qualifiers: Heart failure chronicity: acute on chronic Heart failure type: diastolic Qualified Code(s): I50.33 - Acute on chronic diastolic (congestive) heart failure Code(s): I50.9 - Heart failure, unspecified Status: Acute Assessment and Plan: BNP 2160. Chest imaging as above. Echo in November 2023 showing concentric LVH, EF 65-70%, Grade I diastolic fxn, severe with STACIE 1.1. Lasix IV given on admission. Started on Lasix IV daily but increased by BID on 08/23. Since increase in lasix, she has had a negative fluid balance and improving oxygen requirement. Monitor daily intake and output. Change to oral Lasix and increase to 40mg BID (4) Paroxysmal atrial fibrillation: Code(s): I48.0 - Paroxysmal atrial fibrillation Status: Acute Assessment and Plan: EKG showing AFib on admission. Continue Flecainide. Continue Eliquis (5) Type 2 diabetes mellitus: Qualifiers: Diabetes mellitus complication status: without complication Diabetes mellitus long term care administrator insulin use: with long term care administrator use Qualified Code(s): E11.9 - Type 2 diabetes mellitus without complications; Z79.4 - MCFP (current) use of insulin Code(s): E11.9 - Type 2 diabetes mellitus without complications Status: Acute Assessment and Plan: The patient's blood glucose was reviewed on 08/26 Glucose remains reasonably well controlled. Continue AccuCheks covering with sliding scale. Hypoglycemia protocol available as needed. Continue to monitor. 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 She is a razia lift. She is confused. She has a suprapubic cath. Family wants it changed out here so urology consulted and this was completed this afternoon. (7) CATY (obstructive sleep apnea): Code(s): G47.33 - Obstructive sleep apnea (adult) (pediatric) Status: Acute Assessment and Plan: Encourage BiPAP use at night Plan Code status - DNR DVT prophylaxis - eliquis Possible discharge tomorrow Subjective Date/time seen: 08/26/24 15:32 Interval history: 83yo female with pAFib, CATY, MS requiring suprapubic cath, CHF, chronic hypoxic respiratory failure on 2 L O2, COPD, functional quadriplegic, ileostomy and DM here for SOB and hypoxia (saturation in low 80s). Up to a chair today. Patient is alert but confused. Family at bedside and they were updated. Exam Narrative: AF 98.3 129/90 67 24 96% 2L Gen - NARD Chest - mildly coarse BS. CV - RRR S1/S2, +murmur USB Abd - soft obese, suprapubic cath in place with clear yellow urine in bag; RLQ ostomy bag with dark liquid stool in bag Ext - trace pedal edema. Neuro - alert, confused. Psych -pleasant and cooperative Skin - warm and dry Objective Data Vital Signs Vital Signs: Vital Signs - 24 hr 08/25/24 17:19 08/25/24 20:00 08/25/24 21:32 Temperature Pulse Rate 84 69 Respiratory Rate 20 16 Blood Pressure Pulse Oximetry 97 97 94 Oxygen Delivery Nasal Cannula Nasal Cannula Nasal Cannula Oxygen Flow Rate 2 2 2 Fraction of Inspired Oxygen 32 08/25/24 21:32 08/25/24 22:00 08/26/24 05:57 Temperature 98.7 F 98.6 F Pulse Rate 69 73 72 Respiratory Rate 16 16 16 Blood Pressure 118/51 L 120/52 L Pulse Oximetry 94 95 Oxygen Delivery Oxygen Flow Rate Fraction of Inspired Oxygen 08/26/24 07:52 08/26/24 10:18 08/26/24 14:00 Temperature 98.3 F Pulse Rate 68 74 70 Respiratory Rate 16 14 Blood Pressure 129/90 Pulse Oximetry 96 Oxygen Delivery Oxygen Flow Rate Fraction of Inspired Oxygen 08/26/24 14:50 08/26/24 14:56 Temperature Pulse Rate 64 67 Respiratory Rate 24 H 24 H Blood Pressure Pulse Oximetry Oxygen Delivery Oxygen Flow Rate Fraction of Inspired Oxygen Intake/Output Intake/Output: Intake & Output 08/23/24 08/24/24 08/25/24 08/26/24 23:59 23:59 23:59 23:59 Intake Total 1990 1640 2230 610 Output Total 2890 3425 2250 450 [facility] -900 -1785 -20 160 Meds/Results Medications: Active Medications Generic Name Dose Route Start Last Admin Trade Name Freq PRN Reason Stop Dose Admin Acetaminophen 1,000 mg 08/19/24 14:15 08/19/24 16:21 Acetaminophen 500 Mg Tablet PO 1,000 mg Q6H PRN Administration pain Acetic Acid 30 ml 08/20/24 16:00 08/24/24 17:09 Acetic Acid 0.25% Irrig Soln 500 Ml IRRIGATION Not Given Q48H KATHARINE Albuterol/Ipratropium 3 ml 08/19/24 14:00 08/26/24 14:46 Ipratropium 0.5 Mg/Albuterol Sulfate 2.5 Mg Ampul.Neb 3 Ml INHALATION 3 ml TIDRT KATHARINE Administration Alprazolam 0.25 mg 08/21/24 10:23 08/25/24 08:58 Alprazolam (*Crx) 0.25 Mg Tablet PO 0.25 mg Q8HR PRN Administration Anxiety Apixaban 5 mg 08/19/24 21:00 08/26/24 10:18 Apixaban 5 Mg Tablet PO 5 mg Q12HR KATHARINE Administration Dextrose 12.5 gm 08/19/24 11:52 Dextrose 50% 25 Gm/50 Ml Syringe IV PUSH PRN PRN Hypoglycemia Protocol Dorzolamide HCl 2 drop 08/19/24 21:00 08/26/24 11:24 Dorzolamide Hcl 2% Ophth Drops EACH EYE 2 drop 0900,1200,2100 KATHARINE Administration Escitalopram Oxalate 10 mg 08/19/24 21:00 08/25/24 20:23 Escitalopram Oxalate 10 Mg Tablet PO 10 mg QHS KATHARINE Administration Ferrous Sulfate 325 mg 08/19/24 17:00 08/26/24 10:18 Ferrous Sulfate [address] PO 325 mg BIDWM KATHARINE Administration Flecainide Acetate 50 mg 08/19/24 21:00 08/26/24 10:18 Flecainide Acetate 50 Mg Tablet PO 50 mg Q12HR KATHARINE Administration Furosemide 40 mg 08/23/24 17:00 08/26/24 10:18 Furosemide Inj 40 Mg/4 Ml Vial IV PUSH 40 mg BID KATHARINE Administration Glucagon 1 mg 08/19/24 11:52 Glucagon For Inj 1 Mg Vial IM PRN PRN Hypoglycemia Protocol Glucose 15 gm 08/19/24 11:52 Glucose Oral Gel 15 Gm Of Glucse In 37.5 Gm Tube PO PRN PRN Hypoglycemia Protocol Guaifenesin 600 mg 08/20/24 21:00 08/26/24 10:18 Guaifenesin 12 Hr 600 Mg Tabcr PO 600 mg Q12HR KATHARINE Administration Dextrose 1,000 mls @ 100 mls/hr 08/19/24 11:52 Dextrose 5% 1,000 Ml IVPB PRN PRN Hypoglycemia Protocol Piperacillin/Tazobactam/Dextrose 3.375 gm in 50 mls @ 100 mls/hr 08/22/24 12:00 08/26/24 11:54 Zosyn 3.375 Gm/Ns 50 Ml IVPB 08/29/24 06:29 Infused Q6H KATHARINE Infusion Insulin Aspart 5 units 08/19/24 17:00 08/26/24 12:31 Insulin Aspart (*Bkc) 100 Units/Ml SUB-Q 5 units TIDWM KATHARINE Administration Insulin Aspart 3 - 6 units 08/19/24 17:00 08/26/24 12:31 Insulin Aspart (*Bkc) 100 Units/Ml SUB-Q 3 units TIDWM KATHARINE Administration Protocol Insulin Aspart 1 - 3 units 08/19/24 21:00 08/25/24 20:59 Insulin Aspart (*Bkc) 100 Units/Ml SUB-Q 1 units HS KATHARINE Administration Protocol Insulin Glargine 15 units 08/19/24 21:00 08/26/24 10:21 Insulin Glargine (*Bkc) 100 Units/Ml SUB-Q 15 units Q12HR KATHARINE Administration Levothyroxine Sodium 75 mcg 08/20/24 06:30 08/26/24 05:42 Levothyroxine Sodium 75 Mcg Tablet PO 75 mcg DAILY@0630 KATHARINE Administration Levothyroxine Sodium 75 mcg 08/22/24 06:30 08/22/24 06:23 Levothyroxine Sodium 75 Mcg Tablet PO 75 mcg Ramirez@0630 KATHARINE Administration Loratadine 10 mg 08/19/24 21:00 08/25/24 20:23 Loratadine 10 Mg Tablet PO 10 mg QHS KATHARINE Administration Melatonin 5 mg 08/19/24 21:00 08/25/24 20:23 Melatonin 5 Mg Tablet PO 5 mg HS [facility] Administration Miconazole Nitrate 1 applic 08/19/24 17:00 08/26/24 10:19 Miconazole Nitrate 2% Cream 30 Gm Tube TOPICAL 1 applic BID KATHARINE Administration Nitroglycerin 0.4 mg 08/19/24 14:15 Nitroglycerin Sl 0.4 Mg Tablet SUBLINGUAL PRN PRN Chest Pain Ondansetron HCl 4 mg 08/19/24 06:47 08/20/24 10:36 Ondansetron Inj 4 Mg/2 Ml Vial IV PUSH 4 mg Q4H PRN Administration Nausea Rosuvastatin Calcium 10 mg 08/19/24 21:00 08/25/24 20:23 Rosuvastatin 10 Mg Tablet PO 10 mg HS [facility] Administration Silver Sulfadiazine 1 applic 08/20/24 09:00 08/26/24 10:19 Silver Sulfadiazine 1% Cr 50 Gm Jar (*Bkc) TOPICAL 1 applic DAILY KATHARINE Administration Triamcinolone Acetonide 1 applic 08/19/24 14:15 Triamcinolone Acet 0.1% Cream 15 Gm Tube TOPICAL BID PRN rash Zinc Oxide 1 applic 08/19/24 17:00 08/26/24 10:19 Zinc Oxide 20% Oint 30 Gm Tube TOPICAL 1 applic BID KATHARINE Administration Radiology Results: ITS Impressions Modified Barium Swallow 08/19/24 14:46 IMPRESSION: Mild pharyngeal dysphagia with laryngeal penetration without aspiration. Please correlate with speech pathologist findings and specific feeding recommendations. Chest X-Ray 08/22/24 09:35 IMPRESSION: Right upper lobe and left lower lobe pneumonia. Chest CT 08/24/24 15:12 IMPRESSION: 1. Consolidation regions of crazy paving pattern in the right upper and bilateral lower lobes concerning for pneumonia with differential including pulmonary edema and pulmonary infarct. 2. Small left and very small right pleural effusions. 2. Cardiomegaly. Labs Labs: Laboratory Results - last 24 hr 08/21/24 08/25/24 08/25/24 10:33 16:48 20:59 WBC RBC Hgb Hct MCV MCH MCHC RDW Plt Count MPV Immature Gran % (Auto) Neut % (Auto) Lymph % (Auto) [place] % (Auto) Eos % (Auto) Baso % (Auto) Lymph # (Auto) [place] # (Auto) Eos # (Auto) Baso # (Auto) Abs Immat Gran (auto) Absolute Neuts (auto) Absolute Nucleated RBC Nucleated RBC % Sodium Potassium Chloride Carbon Dioxide Anion Gap BUN Creatinine Estim Creat Clear Calc Estimated GFR Glucose POC Capillary Glucose 197 H 238 H Calcium Phosphorus Magnesium NT-Pro-B Natriuret Pep Albumin Procalcitonin Nasal RSV Type A (PCR) Not detected Nasal RSV Type B (PCR) Not detected Chlamy pneumoniae PCR Not detected Adenovirus DNA Not detected Human Bocavirus (KHURRAM) Not detected Coronavirus Type OC43 Not detected Coronavirus Type HKU1 Not detected Coronavirus Type 229E Not detected Coronavirus Type NL63 Not detected Human Metapneumovir PCR Not detected Influenza A (PCR) Not detected Influenza A (H1) RNA Not detected Influenza A (H3) PCR Not detected M. pneumoniae DNA Not detected Parainfluenza PCR Not detected Parainfluenza 2 (PCR) Not detected Parainfluenza 3 RNA (PCR) Not detected Parainfluenza 4 (PCR) Not detected Rhino/Enterovirus (KHURRAM) Not detected Influenza Type B (PCR) Not detected Misc Test Comment see note 08/26/24 08/26/24 08/26/24 04:35 04:40 08:27 WBC 13.7 H RBC 4.70 Hgb 12.2 Hct 39.8 MCV 84.7 MCH 26.0 MCHC 30.7 L RDW 13.9 Plt Count 261 MPV 11.7 H Immature Gran % (Auto) 0.6 H Neut % (Auto) 60.8 Lymph % (Auto) 14.3 L [place] % (Auto) 17.8 H Eos % (Auto) 5.8 H Baso % (Auto) 0.7 Lymph # (Auto) 1.96 [place] # (Auto) 2.4 H Eos # (Auto) 0.8 H Baso # (Auto) 0.1 Abs Immat Gran (auto) 0.08 H Absolute Neuts (auto) 8.3 H Absolute Nucleated RBC 0.000 Nucleated RBC % 0.0 Sodium 136 L Potassium 3.3 L Chloride 100 Carbon Dioxide 31 H Anion Gap 5 BUN 26 H Creatinine 0.70 Estim Creat Clear Calc 52 Estimated GFR > 60 Glucose 164 H POC Capillary Glucose 168 H Calcium 9.5 Phosphorus 3.3 Magnesium 2.0 NT-Pro-B Natriuret Pep 942 H Albumin 3.5 Procalcitonin 0.1 Nasal RSV Type A (PCR) Nasal RSV Type B (PCR) Chlamy pneumoniae PCR Adenovirus DNA Human Bocavirus (KHURRAM) Coronavirus Type OC43 Coronavirus Type HKU1 Coronavirus Type 229E Coronavirus Type NL63 Human Metapneumovir PCR Influenza A (PCR) Influenza A (H1) RNA Influenza A (H3) PCR M. pneumoniae DNA Parainfluenza PCR Parainfluenza 2 (PCR) Parainfluenza 3 RNA (PCR) Parainfluenza 4 (PCR) Rhino/Enterovirus (KHURRAM) Influenza Type B (PCR) [facility] [place] 08/26/24 11:44 WBC RBC Hgb Hct MCV MCH MCHC RDW Plt Count MPV Immature Gran % (Auto) Neut % (Auto) Lymph % (Auto) [place] % (Auto) Eos % (Auto) Baso % (Auto) Lymph # (Auto) [place] # (Auto) Eos # (Auto) Baso # (Auto) Abs Immat Gran (auto) Absolute Neuts (auto) Absolute Nucleated RBC Nucleated RBC % Sodium Potassium Chloride Carbon Dioxide Anion Gap BUN Creatinine Estim Creat Clear Calc Estimated GFR Glucose POC Capillary Glucose 249 H Calcium Phosphorus Magnesium NT-Pro-B Natriuret Pep Albumin Procalcitonin Nasal RSV Type A (PCR) Nasal RSV Type B (PCR) Chlamy pneumoniae PCR Adenovirus DNA Human Bocavirus (KHURRAM) Coronavirus Type OC43 Coronavirus Type HKU1 Coronavirus Type 229E Coronavirus Type NL63 Human Metapneumovir PCR Influenza A (PCR) Influenza A (H1) RNA Influenza A (H3) PCR M. pneumoniae DNA Parainfluenza PCR Parainfluenza 2 (PCR) Parainfluenza 3 RNA (PCR) Parainfluenza 4 (PCR) Rhino/Enterovirus (KHURRAM) Influenza Type B (PCR) Misc Test Comment
[2024-08-26 16:40] LABS: Glucose Point of Care 127 mg/dl (65-105)
[2024-08-26] MEDS: POTASSIUM CHLORIDE 20 MEQ ER TABLET 40 MEQ PO (17:56)
[2024-08-26 20:10] LABS: Glucose Point of Care 271 mg/dl (65-105)
[2024-08-26] MEDS: ACETAMINOPHEN 500 MG TABLET 1000 MG PO (21:19)
[2024-08-26] MEDS: ALPRAZolam (*CRX) 0.25 MG TABLET PO (21:19)
[2024-08-26] MEDS: MELATONIN 5 MG TABLET PO (22:07)
[2024-08-26] MEDS: ESCITALOPRAM OXALATE 10 MG TABLET PO (22:07)
[2024-08-26] MEDS: ROSUVASTATIN 10 MG TABLET PO (22:07)
[2024-08-26] MEDS: LORATADINE 10 MG TABLET PO (22:07)
[2024-08-27] VITALS (20 sets, daily range): BP systolic 131–152; BP diastolic 42–55; PULSE 64–79; RESP 16–20; TEMP 36.6–37; O2SAT 92–99
[2024-08-27] MEDS: PIPERACILLN/TAZ 3.375GM/NS50ML 3.375 GM/50 ML BAG IVPB ×3 (05:44→17:13)
[2024-08-27] MEDS: LEVOTHYROXINE SODIUM 75 MCG TABLET PO (05:44)
[2024-08-27] MEDS: IPRATROPIUM 0.5 MG/ALBUTEROL SULFATE 2.5 MG AMPUL.NEB 3 ML INHALATION ×3 (07:48→20:06)
[2024-08-27 08:04] LABS: Glucose Point of Care 137 mg/dl (65-105)
[2024-08-27 08:25] LABS: Glucose Point of Care 144 mg/dl (65-105)
[2024-08-27] MEDS: INSULIN GLARGINE (*BKC) 100 UNITS/ML 15 UNITS SUB-Q ×2 (09:34→23:02)
[2024-08-27] MEDS: INSULIN ASPART (*BKC) 100 UNITS/ML SUB-Q ×4 (09:34→17:13)
[2024-08-27] MEDS: DORZOLAMIDE HCL 2% OPHTH DROPS 2 DROP EACH EYE ×3 (09:35→22:52)
[2024-08-27] MEDS: FERROUS SULFATE 325 MG TABLET DR PO ×2 (09:36→17:13)
[2024-08-27] MEDS: FUROSEMIDE 40 MG TABLET PO ×2 (09:36→17:13)
[2024-08-27] MEDS: FLECAINIDE ACETATE 50 MG TABLET PO ×2 (09:36→22:51)
[2024-08-27] MEDS: guaiFENesin 12 HR 600 MG TABCR PO ×2 (09:36→22:50)
[2024-08-27] MEDS: MICONAZOLE NITRATE 2% CREAM 30 GM TUBE 1 APPLIC TOPICAL ×2 (09:36→17:14)
[2024-08-27] MEDS: APIXABAN 5 MG TABLET PO ×2 (09:36→22:51)
[2024-08-27] MEDS: SILVER SULFADIAZINE 1% CR 50 GM JAR (*BKC) 1 APPLIC TOPICAL (09:37)
[2024-08-27] MEDS: ZINC OXIDE 20% OINT 30 GM TUBE 1 APPLIC TOPICAL ×2 (09:37→17:14)
[2024-08-27] MEDS: ALBUTEROL SULFATE NEB 2.5 MG/3 ML INH INHALATION ×2 (09:57→18:27)
[2024-08-27 11:34] LABS: Glucose Point of Care 229 mg/dl (65-105)
[2024-08-27 11:59] LABS: Glucose Point of Care 227 mg/dl (65-105)
[2024-08-27 13:01] LABS: Alveolar/Arterial O2 Gradient 92.3 mmHg; Base Excess ABG 4.6 mEq/l (+/-2.0); Fractional Inspired Oxygen 32 %; HCO3 ABG 29.7 mEq/l (22.0-26.0); Oxygen Content ABG 18.4 %vol (16.0-22.0); Oxygen Saturation ABG 96.4 % (95.0-100.0); Oxyhemoglobin 95.9 % THb (90.0-100.0); PCO2 ABG 45.5 mmHg (35.0-45.0); PO2 ABG 82.6 mmHg (80.0-100.0); PO2 FiO2 Ratio Arterial Blood 2.58 %; Total Hemoglobin 13.6 g/dL (12.0-18.0); pH ABG 7.432 (7.350-7.450)
[2024-08-27 13:02] LABS: Site Drawn LEFT RADIAL
[2024-08-27 13:03] LABS: Device NASAL CANNULA; Modified Allen's Test Pass
--- NOTE | 2024-08-27 13:43 | PM.IMPN ---
Progress Note: A&P Assessment and Plan (1) Nosocomial pneumonia: Code(s): J18.9 - Pneumonia, unspecified organism; Y95 - Nosocomial condition Status: Acute Assessment and Plan: Patient presents with SOB and hypoxia. CXR showing probable focal hazy opacity in the right upper lobe. No blood cultures collected. She was started on Rocephin and azithromycin. She was switched to Zosyn on 08/22/2024. White count has been stable in the 13-14K range. CT of the chest without contrast showed consolidation with crazy paving pattern in the right upper and bilateral lower lobes concerning for pneumonia versus edema versus infarct. Suspect PNA and CHF. Doubt pulmonary infarct since on eliquis Speech therapy evaluated the patient and did recommend regular diet with thin liquids. Material did enter the airway but it remained above the vocal cords and was ejected with multiple consistencies. She did have increasing oxygen requirement during hospitalization around August 22 but this has improved and she is now down to 2 L again which is her baseline. Pulmonary consulted and appreciate their input. Condition worsened this morning. She was semi-recumbent with eating. CXR showing improvement with RLL atelectasis and LLL consolidation. ABG showing 7.43/45.5/82.6 3L. Discussed with family and all questions answered. Suspect patient aspirated. She was seen later int eh day and her symptoms were much improved. (2) Hypoxic respiratory failure: Qualifiers: Chronicity: acute on chronic Qualified Code(s): J96.21 - Acute and chronic respiratory failure with hypoxia Code(s): J96.91 - Respiratory failure, unspecified with hypoxia Status: Acute Assessment and Plan: As above Patient on 2 L of oxygen at baseline by nasal cannula Wean as tolerated Monitor (3) Congestive heart failure: Qualifiers: Heart failure chronicity: acute on chronic Heart failure type: diastolic Qualified Code(s): I50.33 - Acute on chronic diastolic (congestive) heart failure Code(s): I50.9 - Heart failure, unspecified Status: Acute Assessment and Plan: BNP 2160. Chest imaging as above. Echo in November 2023 showing concentric LVH, EF 65-70%, Grade I diastolic fxn, severe with STACIE 1.1. Lasix IV given on admission. Started on Lasix IV daily but increased by BID on 08/23. Since increase in lasix, she has had a negative fluid balance and improving oxygen requirement. Monitor daily intake and output. Changed to oral Lasix and increase to 40mg BID (4) Paroxysmal atrial fibrillation: Code(s): I48.0 - Paroxysmal atrial fibrillation Status: Acute Assessment and Plan: EKG showing AFib on admission. Continue Flecainide. 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 Continue AccuCheks covering with sliding scale. Hypoglycemia protocol available as needed. Continue to monitor. 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 She is a razia lift. She is confused. She has a suprapubic cath. Family wants SP changed out here so urology consulted and this was completed yesterday afternoon. (7) CATY (obstructive sleep apnea): Code(s): G47.33 - Obstructive sleep apnea (adult) (pediatric) Status: Acute Assessment and Plan: Encourage BiPAP use at night Plan Code status - DNR DVT prophylaxis - eliquis Possible discharge tomorrow Subjective Date/time seen: 08/27/24 13:43 Interval history: 83yo female with pAFib, CATY, MS requiring suprapubic cath, CHF, chronic hypoxic respiratory failure on 2 L O2, COPD, functional quadriplegic, ileostomy and DM here for SOB and hypoxia (saturation in low 80s). More SOB this morning. Having a nonproductive harsh cough. Review of Systems Review of Systems: ROS unobtainable: Yes unobtainable due to mental status Exam Narrative: AF 98.1 152/51 78 16 94% 3L Gen - NARD but appears uncomfortable Chest - coarse BS diffusely CV - RRR S1/S2 Abd - soft obese, suprapubic cath in place with clear yellow urine in bag; RLQ ostomy bag with dark liquid stool in bag Ext - trace pedal edema. Neuro - alert, confused. Psych -pleasant and cooperative Skin - warm and dry Objective Data Vital Signs Vital Signs: Vital Signs - 24 hr 08/26/24 14:00 08/26/24 14:50 08/26/24 14:56 Temperature 98.3 F Pulse Rate 70 64 67 Respiratory Rate 14 24 H 24 H Blood Pressure 129/90 Pulse Oximetry 96 Oxygen Delivery Oxygen Flow Rate 08/26/24 19:26 08/26/24 20:00 08/26/24 20:31 Temperature 97.8 F Pulse Rate 85 84 Respiratory Rate 18 16 Blood Pressure 136/44 L Pulse Oximetry 99 Oxygen Delivery Nasal Cannula Oxygen Flow Rate 2 08/26/24 20:43 08/26/24 22:07 08/26/24 23:29 Temperature Pulse Rate 87 87 78 Respiratory Rate 18 25 H Blood Pressure Pulse Oximetry 96 Oxygen Delivery BiPAP Oxygen Flow Rate 08/27/24 02:17 08/27/24 05:02 08/27/24 07:48 Temperature 98.0 F Pulse Rate 64 68 Respiratory Rate 19 18 Blood Pressure 134/47 L Pulse Oximetry 96 97 94 Oxygen Delivery BiPAP Nasal Cannula Oxygen Flow Rate 2 08/27/24 07:48 08/27/24 07:57 08/27/24 08:05 Temperature 98 F Pulse Rate 68 68 68 Respiratory Rate 18 18 16 Blood Pressure 131/55 L Pulse Oximetry 98 Oxygen Delivery Oxygen Flow Rate 08/27/24 09:30 08/27/24 09:36 08/27/24 09:57 Temperature Pulse Rate 65 79 Respiratory Rate 20 Blood Pressure Pulse Oximetry 92 Oxygen Delivery Nasal Cannula Oxygen Flow Rate 3 08/27/24 10:05 08/27/24 13:33 Temperature 98.1 F Pulse Rate 78 78 Respiratory Rate 20 16 Blood Pressure 152/51 H Pulse Oximetry 94 Oxygen Delivery Oxygen Flow Rate Intake/Output Intake/Output: Intake & Output 08/24/24 08/25/24 08/26/24 08/27/24 23:59 23:59 23:59 23:59 Intake Total 1640 2230 2130 710 Output Total 3425 2250 1989 1500 Balance -1785 -20 140 -790 Meds/Results Medications: Active Medications Generic Name Dose Route Start Last Admin Trade Name Freq PRN Reason Stop Dose Admin Acetaminophen 1,000 mg 08/19/24 14:15 08/26/24 21:19 Acetaminophen 500 Mg Tablet PO 1,000 mg Q6H PRN Administration pain Acetic Acid 30 ml 08/20/24 16:00 08/26/24 15:37 Acetic Acid 0.25% Irrig Soln 500 Ml IRRIGATION Not Given Q48H KATHARINE Albuterol 2.5 mg 08/27/24 09:44 08/27/24 09:57 Albuterol Sulfate Neb 2.5 Mg/3 Ml Inh INHALATION 2.5 mg Q4HRT PRN Administration Shortness Of Breath Albuterol/Ipratropium 3 ml 08/19/24 14:00 08/27/24 07:48 Ipratropium 0.5 Mg/Albuterol Sulfate 2.5 Mg Ampul.Neb 3 Ml INHALATION 3 ml TIDRT KATHARINE Administration Alprazolam 0.25 mg 08/21/24 10:23 08/26/24 21:19 Alprazolam (*Crx) 0.25 Mg Tablet PO 0.25 mg Q8HR PRN Administration Anxiety Apixaban 5 mg 08/19/24 21:00 08/27/24 09:36 Apixaban 5 Mg Tablet PO 5 mg Q12HR KATHARINE Administration Dextrose 12.5 gm 08/19/24 11:52 Dextrose 50% 25 Gm/50 Ml Syringe IV PUSH PRN PRN Hypoglycemia Protocol Dorzolamide HCl 2 drop 08/19/24 21:00 08/27/24 11:18 Dorzolamide Hcl 2% Ophth Drops EACH EYE 2 drop 0900,1200,2100 KATHARINE Administration Escitalopram Oxalate 10 mg 08/19/24 21:00 08/26/24 22:07 Escitalopram Oxalate 10 Mg Tablet PO 10 mg QHS KATHARINE Administration Ferrous Sulfate 325 mg 08/19/24 17:00 08/27/24 09:36 Ferrous Sulfate [address] PO 325 mg BIDWM KATHARINE Administration Flecainide Acetate 50 mg 08/19/24 21:00 08/27/24 09:36 Flecainide Acetate 50 Mg Tablet PO 50 mg Q12HR KATHARINE Administration Furosemide 40 mg 08/27/24 09:00 08/27/24 09:36 Furosemide 40 Mg Tablet PO 40 mg BID KATHARINE Administration Glucagon 1 mg 08/19/24 11:52 Glucagon For Inj 1 Mg Vial IM PRN PRN Hypoglycemia Protocol Glucose 15 gm 08/19/24 11:52 Glucose Oral Gel 15 Gm Of Glucse In 37.5 Gm Tube PO PRN PRN Hypoglycemia Protocol Guaifenesin 600 mg 08/20/24 21:00 08/27/24 09:36 Guaifenesin 12 Hr 600 Mg Tabcr PO 600 mg Q12HR KATHAIRNE Administration Dextrose 1,000 mls @ 100 mls/hr 08/19/24 11:52 Dextrose 5% 1,000 Ml IVPB PRN PRN Hypoglycemia Protocol Piperacillin/Tazobactam/Dextrose 3.375 gm in 50 mls @ 100 mls/hr 08/22/24 12:00 08/27/24 11:48 Zosyn 3.375 Gm/Ns 50 Ml IVPB Infused Q6H KATHARINE Infusion Insulin Aspart 5 units 08/19/24 17:00 08/27/24 12:21 Insulin Aspart (*Bkc) 100 Units/Ml SUB-Q 5 units TIDWM KATHARINE Administration Insulin Aspart 3 - 6 units 08/19/24 17:00 08/27/24 12:21 Insulin Aspart (*Bkc) 100 Units/Ml SUB-Q 3 units TIDWM KATHARINE Administration Protocol Insulin Aspart 1 - 3 units 08/19/24 21:00 08/26/24 22:07 Insulin Aspart (*Bkc) 100 Units/Ml SUB-Q 2 units HS KATHARINE Administration Protocol Insulin Glargine 15 units 08/19/24 21:00 08/27/24 09:34 Insulin Glargine (*Bkc) 100 Units/Ml SUB-Q 15 units Q12HR KATHARINE Administration Levothyroxine Sodium 75 mcg 08/20/24 06:30 08/27/24 05:44 Levothyroxine Sodium 75 Mcg Tablet PO 75 mcg DAILY@0630 KATHARINE Administration Levothyroxine Sodium 75 mcg 08/22/24 06:30 08/22/24 06:23 Levothyroxine Sodium 75 Mcg Tablet PO 75 mcg Ramirez@0630 KATHARINE Administration Loratadine 10 mg 08/19/24 21:00 08/26/24 22:07 Loratadine 10 Mg Tablet PO 10 mg QHS KATHARINE Administration Melatonin 5 mg 08/19/24 21:00 08/26/24 22:07 Melatonin 5 Mg Tablet PO 5 mg HS KATHARINE Administration Miconazole Nitrate 1 applic 08/19/24 17:00 08/27/24 09:36 Miconazole Nitrate 2% Cream 30 Gm Tube TOPICAL 1 applic BID KATHARINE Administration Nitroglycerin 0.4 mg 08/19/24 14:15 Nitroglycerin Sl 0.4 Mg Tablet SUBLINGUAL PRN PRN Chest Pain Ondansetron HCl 4 mg 08/19/24 06:47 08/20/24 10:36 Ondansetron Inj 4 Mg/2 Ml Vial IV PUSH 4 mg Q4H PRN Administration Nausea Rosuvastatin Calcium 10 mg 08/19/24 21:00 08/26/24 22:07 Rosuvastatin 10 Mg Tablet PO 10 mg HS KATHARINE Administration Silver Sulfadiazine 1 applic 08/20/24 09:00 08/27/24 09:37 Silver Sulfadiazine 1% Cr 50 Gm Jar (*Bkc) TOPICAL 1 applic DAILY KATHARINE Administration Triamcinolone Acetonide 1 applic 08/19/24 14:15 Triamcinolone Acet 0.1% Cream 15 Gm Tube TOPICAL BID PRN rash Zinc Oxide 1 applic 08/19/24 17:00 08/27/24 09:37 Zinc Oxide 20% Oint 30 Gm Tube TOPICAL 1 applic BID KATHARINE Administration Radiology Results: ITS Impressions Modified Barium Swallow 08/19/24 14:46 IMPRESSION: Mild pharyngeal dysphagia with laryngeal penetration without aspiration. Please correlate with speech pathologist findings and specific feeding recommendations. Chest CT 08/24/24 15:12 IMPRESSION: 1. Consolidation regions of crazy paving pattern in the right upper and bilateral lower lobes concerning for pneumonia with differential including pulmonary edema and pulmonary infarct. 2. Small left and very small right pleural effusions. 2. Cardiomegaly. Chest X-Ray 08/27/24 12:56 IMPRESSION: 1. Resolution of prior patchy airspace opacity at the right upper lung zone with the relatively rapid improvement favoring pulmonary edema over pneumonia. 2. Unchanged discoid atelectasis at the right lung base with larger region of consolidation at the medial left lung base which could represent additional atelectasis or pneumonia. 3. Cardiomegaly. Labs Labs: Laboratory Results - last 24 hr 08/26/24 08/26/24 08/27/24 16:38 19:21 07:42 Puncture Site ABG pH ABG pCO2 ABG pO2 ABG PO2/FiO2 Ratio ABG HCO3 ABG O2 Saturation ABG O2 Content ABG Base Excess A-a Gradient Oxyhemoglobin Total Hemoglobin O2 Delivery Device O2 Liters/Min FiO2 POC Capillary Glucose 127 H 271 H 137 H 08/27/24 08/27/24 08/27/24 08:17 11:32 11:56 Puncture Site ABG pH ABG pCO2 ABG pO2 ABG PO2/FiO2 Ratio ABG HCO3 ABG O2 Saturation ABG O2 Content ABG Base Excess A-a Gradient Oxyhemoglobin Total Hemoglobin O2 Delivery Device O2 Liters/Min FiO2 POC Capillary Glucose 144 H 229 H 227 H 08/27/24 12:53 Puncture Site Left radial ABG pH 7.432 ABG pCO2 45.5 H ABG pO2 82.6 ABG PO2/FiO2 Ratio 2.58 ABG HCO3 29.7 H ABG O2 Saturation 96.4 ABG O2 Content 18.4 ABG Base Excess 4.6 A-a Gradient 92.3 Oxyhemoglobin 95.9 Total Hemoglobin 13.6 O2 Delivery Device Nasal cannula O2 Liters/Min 3.0 FiO2 32 POC Capillary Glucose
[2024-08-27 16:47] LABS: Glucose Point of Care 177 mg/dl (65-105)
[2024-08-27] MEDS: LORATADINE 10 MG TABLET PO (22:51)
[2024-08-27] MEDS: ROSUVASTATIN 10 MG TABLET PO (22:51)
[2024-08-27] MEDS: ESCITALOPRAM OXALATE 10 MG TABLET PO (22:51)
[2024-08-27] MEDS: MELATONIN 5 MG TABLET PO (22:51)
[2024-08-27 23:21] LABS: Glucose Point of Care 147 mg/dl (65-105)
[2024-08-28] VITALS (7 sets, daily range): BP systolic 130; BP diastolic 46; PULSE 63–80; RESP 16–20; TEMP 36.7; O2SAT 95–98
[2024-08-28] MEDS: PIPERACILLN/TAZ 3.375GM/NS50ML 3.375 GM/50 ML BAG IVPB ×2 (00:46→05:49)
[2024-08-28] MEDS: LEVOTHYROXINE SODIUM 75 MCG TABLET PO (05:49)
[2024-08-28 07:39] LABS: Glucose Point of Care 137 mg/dl (65-105)
[2024-08-28] MEDS: IPRATROPIUM 0.5 MG/ALBUTEROL SULFATE 2.5 MG AMPUL.NEB 3 ML INHALATION ×2 (08:19→13:24)
[2024-08-28] MEDS: APIXABAN 5 MG TABLET PO (09:01)
[2024-08-28] MEDS: guaiFENesin 12 HR 600 MG TABCR PO (09:01)
[2024-08-28] MEDS: FERROUS SULFATE 325 MG TABLET DR PO (09:01)
[2024-08-28] MEDS: FLECAINIDE ACETATE 50 MG TABLET PO (09:01)
[2024-08-28] MEDS: FUROSEMIDE 40 MG TABLET PO (09:01)
[2024-08-28] MEDS: INSULIN GLARGINE (*BKC) 100 UNITS/ML 15 UNITS SUB-Q (09:02)
[2024-08-28] MEDS: INSULIN ASPART (*BKC) 100 UNITS/ML SUB-Q ×2 (09:02→12:17)
[2024-08-28] MEDS: DORZOLAMIDE HCL 2% OPHTH DROPS 2 DROP EACH EYE ×2 (09:02→12:16)
[2024-08-28] MEDS: MICONAZOLE NITRATE 2% CREAM 30 GM TUBE 1 APPLIC TOPICAL (09:03)
[2024-08-28] MEDS: SILVER SULFADIAZINE 1% CR 50 GM JAR (*BKC) 1 APPLIC TOPICAL (09:03)
[2024-08-28] MEDS: ZINC OXIDE 20% OINT 30 GM TUBE 1 APPLIC TOPICAL (09:03)
--- NOTE | 2024-08-28 11:19 | P.DS_ITS ---
DS: Admitting Diagnosis Discharge Date 08/28/24 Admitting Diagnosis Shortness of breath DS: Discharge Diagnosis Discharge Diagnosis (1) Nosocomial pneumonia: Code(s): J18.9 - Pneumonia, unspecified organism; Y95 - Nosocomial condition Status: Acute (2) Hypoxic respiratory failure: Qualifiers: Chronicity: acute on chronic Qualified Code(s): J96.21 - Acute and chronic respiratory failure with hypoxia Code(s): J96.91 - Respiratory failure, unspecified with hypoxia Status: Acute (3) Congestive heart failure: Qualifiers: Heart failure type: diastolic Heart failure chronicity: acute on chronic Qualified Code(s): I50.33 - Acute on chronic diastolic (congestive) heart failure Code(s): I50.9 - Heart failure, unspecified Status: Acute (4) Paroxysmal atrial fibrillation: Code(s): I48.0 - Paroxysmal atrial fibrillation Status: Acute (5) Type 2 diabetes mellitus: Qualifiers: Diabetes mellitus prison insulin use: with prison use Diabetes mellitus complication status: without complication Qualified Code(s): E11.9 - Type 2 diabetes mellitus without complications; 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 Code(s): E11.9 - Type 2 diabetes mellitus without complications Status: Acute (6) Multiple sclerosis: Code(s): G35 - Multiple sclerosis Status: Chronic (7) CATY (obstructive sleep apnea): Code(s): G47.33 - Obstructive sleep apnea (adult) (pediatric) Status: Acute (8) UTI (urinary tract infection): Qualifiers: Hematuria presence: with hematuria Urinary tract infection type: acute cystitis Qualified Code(s): N30.01 - Acute cystitis with hematuria Code(s): N39.0 - Urinary tract infection, site not specified Status: Acute DS: Summary Hospital Course Reason for hospitalization: 83yo female with pAFib, CATY, MS requiring suprapubic cath, CHF, chronic hypoxic respiratory failure on 2 L O2, COPD, functional quadriplegic, ileostomy and DM here for SOB and hypoxia (saturation in low 80s). Please see H&P for details. Hospital Course: Patient presents with SOB and hypoxia. CXR showing probable focal hazy opacity in the right upper lobe. No blood cultures collected. She was started on Rocephin and azithromycin. UA noted and UCx returned positive for pseudomonas that was pansensitive. She was switched to Zosyn on 08/22/2024. White count has been stable in the 13-14K range but appears to have a chronically elevated WBC. CT of the chest without contrast showed consolidation with crazy paving pattern in the right upper and bilateral lower lobes concerning for pneumonia versus edema versus infarct. Suspect PNA and CHF. Doubt pulmonary infarct since on eliquis chronically. She completed 7 days of treatment for PNA and UTI. Speech therapy evaluated the patient and did recommend regular diet with thin liquids. Material did enter the upper airway but it remained above the vocal cords and was ejected with multiple consistencies. She did have increasing oxygen requirement during hospitalization that has improved and she is now down to 2 L again which is her baseline. Pulmonary consulted and appreciate their input. Condition worsened the morning prior to discharge. She was semi-recumbent with eating. CXR showing improvement with RLL atelectasis and LLL consolidation. ABG showing 7.43/45.5/83 3L. It is suspected patient is having intermittent aspiration causing her PNA and persistent chronic cough. BNP 2160. Echo in November 2023 showing concentric LVH, EF 65-70%, Grade I diastolic fxn, severe with STACIE 1.1. Lasix IV given on admission. Started on Lasix IV daily but increased by BID on 08/23. Since increase in lasix, she has had a negative fluid balance and improving oxygen requirement. Changed to oral Lasix and increase to 40mg BID. EKG showing AFib on admission. We continued Flecainide and Eliquis. Patient has a MS-like disorder. She is a phyllis lift. She is confused. She has a suprapubic cath. Family wanted the SP changed out here so urology consulted and this was completed before discharge. She overall did well and was able to be discharged on 08/28/24. Status at Discharge Cognitive/behavioral status at discharge: stable Time Spent with Patient Time attestation: Total time spent providing and/or coordinating discharge services: 35 minutes Time spent: Greater than 30 minutes Exam Narrative: AF 98.6 131/42 70 20 98% 2L Gen - NARD Chest - lungs clear anteriorly CV - RRR S1/S2 Abd - soft obese, suprapubic cath in place with clear yellow urine in bag; RLQ ostomy bag with dark liquid stool in bag Ext - no pedal edema. Neuro - alert, confused. Psych -pleasant and cooperative Skin - warm and dry DS: Data Data Completed and Pending Labs on day of discharge: Labs from last 24 hours 08/28/24 08/27/24 08/27/24 07:36 22:58 16:42 Puncture Site ABG pH ABG pCO2 ABG pO2 ABG PO2/FiO2 Ratio ABG HCO3 ABG O2 Saturation ABG O2 Content ABG Base Excess A-a Gradient Oxyhemoglobin Total Hemoglobin O2 Delivery Device O2 Liters/Min FiO2 POC Capillary Glucose 137 H 147 H 177 H 08/27/24 08/27/24 08/27/24 12:53 11:56 11:32 Puncture Site Left radial ABG pH 7.432 ABG pCO2 45.5 H ABG pO2 82.6 ABG PO2/FiO2 Ratio 2.58 ABG HCO3 29.7 H ABG O2 Saturation 96.4 ABG O2 Content 18.4 ABG Base Excess 4.6 A-a Gradient 92.3 Oxyhemoglobin 95.9 Total Hemoglobin 13.6 O2 Delivery Device Nasal cannula O2 Liters/Min 3.0 FiO2 32 POC Capillary Glucose 227 H 229 H Discharge Plan Discharge Attending physician on discharge: Adama Mora Consulting providers: Noah Hampton; Ian Reddy Discharging Clinician: Adama Mora Anticipated Discharge Date/Time: 08/28/24 11:31 Patient Disposition: [facility] Activity: as tolerated Diet: heart healthy and diabetic Discharge Instructions: Aspiration precautions. Out of bed to chair to eat. Upright to eat. Alternate solids and liquids. Multiple chews per swallow. Encourage chin tucking when swallowing. Assist with eating. Phyllis lift. Heel protectors when in bed. Routine ostomy care. Routine Suprapubic care. Change catheter per prior schedule (last changed on 08/26/24) Please check glucose before meals and before bed. Record for the doctor's review. Check blood pressure 1 to 2 times a day. Record for the doctor's review. Take precautions to avoid falls. Check daily morning weights after voiding. Call the doctor if she gains more than 3 lb in 2 days or 5 lb in 1 week. Contact the doctor if the patient has fevers, shortness of breath or other worrisome symptoms. Avoid NSAIDs (ibuprofen, naproxen, Aleve). Tylenol is safe to take. Follow-up with the provider at the facility. Follow-up with Urology in 3-4 weeks for next catheter change. Thank you for using [facility] for your health care needs. Patient Instructions: Antibiotic Form Patient Language: Tajik Stand Alone Forms: General Discharge Information Follow-up/Referrals: Daquan,Julian Greer DO [Primary Care Provider] - Call for Appointment Ian Reddy MD [Physician] - Call for Appointment Discharge Medications: New insulin aspart U-100 [Novolog U-100 Insulin aspart] 100 unit/mL Solution 5 unit subcut TIDWM Qty: 10 0RF Continued escitalopram oxalate 10 mg tablet 10 mg PO QHS Arginaid 4.5 gram-156 mg/9.2 gram Powder In Packet 1 g PO BID Rx Instructions: 1 packet bid pantoprazole 40 mg tablet,delayed release (DR/EC) 40 mg PO DAILY ciclopirox 0.77 % gel 1 applic TOPICAL HS Rx Instructions: Apply to affected fingernails albuterol sulfate 90 mcg/actuation HFA aerosol inhaler 2 puff INHALATION PRN ferrous sulfate [Kassie-Time] 325 mg (65 mg iron) tablet 325 mg PO BID insulin lispro [Humalog KwikPen Insulin] 100 unit/mL insulin pen 1 sliding scale dose SUBCUT TID triamcinolone acetonide 0.1 % cream 1 applic TOPICAL BID PRN (Reason: rash) levothyroxine 150 mcg tablet 150 mcg PO .friday ketoconazole 2 % cream 1 applic TOPICAL BID loratadine 10 mg Tablet 10 mg PO QHS Qty: 20 0RF ipratropium-albuterol 0.5 mg-3 mg(2.5 mg base)/3 mL solution for nebulization 3 ml INHALATION TID silver sulfadiazine 1 % cream 1 applic TOPICAL DAILY Rx Instructions: apply to coccyx cranberry extract 425 mg Capsule 425 mg PO DAILY Rx Instructions: administer with a meal dorzolamide 2 % drops 2 drp EACH EYE TID Rx Instructions: daily, noon and HS rosuvastatin 10 mg tablet 10 mg PO HS nitroglycerin 0.4 mg tablet, sublingual 0.4 mg sublingual PRN PRN (Reason: Chest Pain) Rx Instructions: 1 tab po PRN q 5mins x 3 doses levothyroxine 75 mcg tablet 75 mcg PO DAILY Rx Instructions: takes Friday-Friday bromfenac 0.09 % drops 1 drp RIGHT EYE HS acetaminophen 500 mg capsule 1,000 mg PO Q6H PRN (Reason: pain) melatonin 5 mg Tablet 5 mg PO HS Qty: 30 0RF hyoscyamine sulfate 0.125 mg Tablet 0.125 mg PO BID PRN (Reason: cramping) nystatin 100,000 unit/gram cream 1 applic TOPICAL BID Rx Instructions: mix with zinc oxide cream and apply to groin and brittany area BID and PRN acetic acid 0.25 % Solution 30 ml irrigation EVERY OTHER DAY Patient Comments: 30 ml irrigation every shift to flush suprapubic catheter every day Rx Instructions: Flush suprapubic catheter Fri, Fri, Friday Saccharomyces boulardii [Florastor] 250 mg Capsule 250 mg PO BID Changed Eliquis 5 mg tablet 5 mg PO Q12H Qty: 60 0RF flecainide 50 mg tablet 50 mg PO Q12H Qty: 60 0RF furosemide 40 mg Tablet 40 mg PO BID Qty: 60 0RF insulin glargine [Lantus U-100 Insulin] 100 unit/mL Solution 15 unit subcut Q12H Qty: 10 0RF Discontinued insulin lispro [Humalog KwikPen Insulin] 10 unit subcut TID insulin glargine [Lantus Solostar U-100 Insulin] 100 unit/mL (3 mL) insulin pen 22 unit subcut QPM levothyroxine 75 mcg tablet 150 mcg PO DAILY Patient Comments: takes M-Sat Rx Instructions: takes on Friday Date of admission: 08/19/24 06:47 Primary Care Provider: DaquanJulian Admitting Provider: Twila Gomez Attending physician on admission: Angelito Yi Condition: Stable Hospitalist MIPS Heart Failure (Exclusion) Patient has history of Heart Transplant or Left Ventricular Assistive Device?: No IF YES, STOP HERE Heart Failure (Qualifier) Patient has current or prior documentation of LVEF less than or equal to 40%, or mod/servere depressed LVSF?: No IF NO, STOP HERE
[2024-08-28 11:40] LABS: Glucose Point of Care 177 mg/dl (65-105)
[2024-08-28] MEDS: levoFLOXacin 750 MG TABLET PO (12:16)
[2024-08-28 17:52] LABS: Pneumococcal Antigen Urine NOT DETECTED
[2024-08-28 22:44] LABS: Legionella pneumophila Ag Ur NOT DETECTED
[2024-08-30 20:34] LABS: Mycoplasma IgM Antibody Titer 138 U/mL
--- NOTE | 2024-08-31 08:20 | PC.NURSE ---
Urine legionella Ag and Pneumococcal Ag were not detected. Mycoplasma IgM is WNL at 138.
== END 2024-08-28 14:40 | DRG 193 ==
LOC: ANHED 06:54 → ANHIMU 07:24 → ANH2MED 08-24 10:51
PROVIDERS: Internal Medicine; Internal Medicine Pulmonary Disease; Admitting Provider General Practice; Emergency Provider Student in an Organized Health Care Education/Training Program; PCP Internal Medicine; Visit Provider Internal Medicine
DX: J18.9 Pneumonia, unspecified organism (principal); I50.33 Acute on chronic diastolic (congestive) heart failure; J96.21 Acute and chronic respiratory failure with hypoxia; R53.2 Functional quadriplegia; N39.0 Urinary tract infection, site not specified; T83.510A Infection and inflammatory reaction due to cystostomy catheter, initial encounter; I11.0 Hypertensive heart disease with heart failure; I48.0 Paroxysmal atrial fibrillation; I25.10 Atherosclerotic heart disease of native coronary artery without angina pectoris; J44.9 Chronic obstructive pulmonary disease, unspecified; E21.3 Hyperparathyroidism, unspecified; E03.9 Hypothyroidism, unspecified; E11.42 Type 2 diabetes mellitus with diabetic polyneuropathy; K59.04 Chronic idiopathic constipation; K21.9 Gastro-esophageal reflux disease without esophagitis; N31.9 Neuromuscular dysfunction of bladder, unspecified; G35 Multiple sclerosis; G47.33 Obstructive sleep apnea (adult) (pediatric); H40.9 Unspecified glaucoma; Y95 Nosocomial condition; Z20.822 Contact with and (suspected) exposure to COVID-19; Z79.01 Long term (current) use of anticoagulants; Z93.50 Unspecified cystostomy status; Z93.2 Ileostomy status; Z99.81 Dependence on supplemental oxygen; Z79.4 Long term (current) use of insulin; Z85.3 Personal history of malignant neoplasm of breast; Z86.73 Personal history of transient ischemic attack (TIA), and cerebral infarction without residual deficits; E87.6 Hypokalemia
CPT/HCPCS: 36415; 36600; 71045; 71250; 80048; 80053; 80069; 81001; 82803; 82805; 82948; 83036; 83735; 83880; 84145; 84484; 85018; 85025; 85027; 85610; 85730; 86738; 87086; 87186; 87449; 87633; 87637; 87899; 92526; 92611; 93005; 94002; 94003; 94640; 94667; 94668; 96374; 96375; 99291; A9270; J0456; J0696; J1815; J1938; J2405; J2543

== ENCOUNTER 2024-08-30 12:33 | Inpatient (IN) | payer MEDICARE, MEDICAID, SELFPAY ==
[2024-08-30] VITALS (25 sets, daily range): BP systolic 97–149; BP diastolic 49–93; PULSE 70–96; RESP 18–28; TEMP 36.9; O2SAT 95–100; BMI 27.5
--- NOTE | ~2024-08-30 | XR_ITS ---
CHEST RADIOGRAPH, PA AND LATERAL CLINICAL HISTORY: sob AND WEAKNESS NOTED . COMPARISON: 08/27/2024 TECHNIQUE: PA and lateral views of the chest. FINDINGS Redemonstration of left basilar consolidation. Patchy opacification of the periphery of the bilateral upper lungs, right greater than left. The remainder of the lungs are clear. Calcified lymph nodes within the mediastinum suggesting prior granulomatous disease. Biapical scarring is redemonstrated. IMPRESSION: Left basilar consolidation with patchy opacification of the periphery of the bilateral upper lung fie lds, right greater than left. Reviewed, dictated and finalized at location A. IMPRESSION: Left basilar consolidation with patchy opacification of the periphery of the bi lateral upper lung dave, right greater than left.
--- NOTE | ~2024-08-30 | XR_ITS ---
CHEST RADIOGRAPH CLINICAL HISTORY: sob . COMPARISON: 08/31/2024 TECHNIQUE: Single portable view of the chest. FINDINGS The cardiomediastinal silhouette is unremarkable. The lungs are clear. IMPRESSION: No focal infiltrate or effusion. Reviewed, dictated and finalized at location A.
--- NOTE | ~2024-08-30 | CT_ITS ---
CT diagnostic chest wo con Ordering provider: Oscar Rivas MD History: 83 years Female with . resp failure . Comparison: None. Technique: CT chest without IV contrast.Radiation reduction technique utilized.The dose-length produc t was 350.12 mGy-cm. FINDINGS: VISUALIZED THORACIC INLET: Normal. MEDIASTINUM: Aorta/coronary arteries: Mild atheromatous disease. Heart/other: The heart is slightly enlarged. Lymph nodes: No mediastinal or hilar adenopathy. Prevascular lymph node is seen measuring 1.5 cm. Rig ht hilar calcified lymph nodes. LUNGS: Left basilar atelectasis versus pneumonia. Groundglass appearance seen in the left and right u pper lobes which may indicate atelectasis versus pneumonia. Narrowing of the trachea is seen suggesti ve of tracheomalacia. No pulmonary masses. No pneumothorax. Small opacity seen in the middle lobe sug gestive of small nodule measuring 6 mm. 6 months follow-up CT is advised. VISUALIZED UPPER ABDOMEN: Status post cholecystectomy. Slightly thickened wall of the stomach. Otherw ise, the visualized upper abdomen is normal. MUSCULOSKELETAL: Soft tissues: The superficial soft tissues are normal. Bones: Age appropriate degenerative changes of the spine. IMPRESSION: 1. Left basilar atelectasis versus pneumonia. 2. Groundglass appearance in the upper lobe suggestive of atelectasis versus pneumonia. 3. 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 4. Cardiomegaly. Slightly enlarged lymph nodes in the prevascular area. 5. Nodule in the middle lobes. 6 months follow-up advised. Reviewed, dictated and finalized at location A. IMPRESSION: 1. Left basilar atelectasis versus pneumonia. 2. Groundglass appearance in the upper lobe suggestive of atelectasis versus p neumonia. 3. 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 4. Cardiomegaly. Slightly enlarged lymph nodes in the prevascular area. 5. Nodule in the middle lobes. 6 months follow-up advised.
--- NOTE | ~2024-08-30 | XR_ITS ---
MODIFIED ESOPHAGRAM HISTORY: Dysphagia. TECHNIQUE: Modified barium esophagram was performed on 09/01/2024. I administered fluoroscopy and perf ormed the exam with speech pathologist. Patient was seated for lateral fluoroscopic imaging for esther stion of thin liquids, pudding, solids and quantified amounts, followed by thin liquids in uncontroll ed amounts. This was recorded on tape. A single fluoroscopic spot image was also recorded. The DAP fo r this procedure was 1.655 Gycm2. The amount of fluoroscopy time used during this procedure was 2.0 m inutes. FINDINGS: Oral stage: Adequate function. Pharyngeal stage: There is reduced laryngeal elevation and tongue base retraction. There is mild vall ecular residue which clears when patient swallows. There is laryngeal penetration which appears at ri sk of but without visualized aspiration with thin liquids especially with a straw. As at risk of. Cervical/esophageal stage: Adequate function. IMPRESSION: Pharyngeal dysphagia with laryngeal penetration with thin liquids which is likely at risk of but without evident aspiration. Please correlate with speech pathologist findings and specific f eeding recommendations. Reviewed, dictated and finalized at location A. IMPRESSION: Pharyngeal dysphagia with laryngeal penetration with thin liquids w hich is likely at risk of but without evident aspiration. Please correlate wit h speech pathologist findings and specific feeding recommendations.
--- NOTE | ~2024-08-30 | XR_ITS ---
CHEST RADIOGRAPH CLINICAL HISTORY: worsening leukocytosis . COMPARISON: Examination is compared with previous studies performed most recently on 09/02/2024 and da ting back to 08/27/2024 TECHNIQUE: Single portable view of the chest. FINDINGS The cardiomediastinal silhouette is unremarkable. Redemonstration of blunting of the left costophrenic sulcus consistent with a small left-sided pleura l effusion. Increased interstitial markings are identified bilaterally, findings suggesting mild pulmonary vascul ar congestion. The remainder of the lungs are clear. IMPRESSION: Small left-sided pleural effusion without focal infiltrate. Reviewed, dictated and finalized at location A.
--- NOTE | ~2024-08-30 | XR_ITS ---
CHEST RADIOGRAPH CLINICAL HISTORY: shortness of breath, cough . COMPARISON: 08/30/2024 and dating back to 08/22/2024 TECHNIQUE: Single portable view of the chest. FINDINGS Redemonstration of calcification of the mitral annulus. The remainder of the cardiomediastinal silhouette is otherwise unremarkable. Increased interstitial markings are identified bilaterally, findings suggesting mild pulmonary vascul ar congestion. Blunting of the right hemidiaphragm is now demonstrated, an interval change from previous days examin ation for which a small right-sided pleural effusion is suspected. The remainder of the lungs are clear. IMPRESSION: Small right-sided pleural effusion and mild pulmonary vascular congestion, without focal infiltrate. Reviewed, dictated and finalized at location A. IMPRESSION: Small right-sided pleural effusion and mild pulmonary vascular congestion, with out focal infiltrate.
--- NOTE | 2024-08-30 12:44 | ECG_ITS ---
Test Date: 2024-08-30 12:45:36 Measurements Intervals [place] Rate: 76 P: -9 MN: 127 QRS: -54 QRSD: 121 T: 97 QT: 293 QTc: 331 Interpretive Statements SINUS RHYTHM LEFT ANTERIOR FASCICULAR BLOCK NONSPECIFIC ST & T-WAVE ABNORMALITY- ANTEROLAT/HIGH LAT LEADS BASELINE ARTIFACT- I, II, AVR, AVL, AVF ABNORMAL ECG Compared to ECG 08/19/2024 06:02:49 Atrial fibrillation no longer present Electronically Signed On 08-30-2024 12:51:40 CDT by Emmanuel Tamez D.O.
[2024-08-30 12:56] LABS: Basophils Absolute Auto 0.1 K/mm3 (0.0-0.1); Basophils Percent Auto 0.5 % (0.2-1.2); Eosinophils Absolute Auto 0.7 K/mm3 (0-0.3); Eosinophils Percent Auto 3.7 % (0-4.4); Hematocrit 41.3 % (37.0-47.0); Immature Granulocyte Percent A 0.6 % (0-0.5); Lymphocytes Absolute Auto 2.94 K/mm3 (0.9-3.2); Lymphocytes Percent Auto 16.6 % (18.3-44.2); Mean Corpuscular HGB Conc 31.5 g/dl (32-36); Mean Corpuscular Hemoglobin 26.1 pg (26-34); Mean Corpuscular Volume 82.8 fl (80-100); Mean Platelet Volume 11.1 fl (7.4-10.4); Monocytes Absolute Auto 2.9 K/mm3 (0.1-0.6); Monocytes Percent Auto 16.3 % (2.6-8.5); Neutrophils Percent Auto 62.3 % (45.5-73.1); Platelet Count Result 329 k/mm3 (150-375); Red Blood Count 4.99 M/mm3 (4.2-5.4); Red Cell Distribution Width 14.1 % (11.5-14.5); White Blood Count 17.7 K/mm3 (4.5-10.0)
[2024-08-30 13:08] LABS: Alanine Aminotransferase 16 U/L (6-35); Albumin Level 3.9 g/dL (3.5-5.1); Alkaline Phosphatase 85 U/L (38-126); Anion Gap 7 mmol/L (4-12); Aspartate Amino Transferase 23 U/L (14-36); Bilirubin,Total 0.3 mg/dL (0.2-1.3); Blood Urea Nitrogen 18 mg/dL (7-17); Calcium 9.6 mg/dL (8.4-10.2); Carbon Dioxide 27 mmol/L (22-30); Chloride 104 mmol/L (98-107); Estimated CRCL calculation 57 ml/min; Estimated Glomerular Filt Rate > 60; Glucose 123 mg/dL (65-110); Potassium 3.4 mmol/L (3.4-5.0); Sodium 138 mmol/L (137-145)
[2024-08-30] MEDS: LACTATED RINGERS 1,000 ML 999 ML IV CONT ×2 (14:29)
[2024-08-30] MEDS: PIPERACILLN/TAZ 3.375GM/NS50ML 3.375 GM/50 ML BAG IVPB (14:29)
[2024-08-30] MEDS: LACTATED RINGERS 500 ML 999 ML IV CONT (14:29)
--- OUTSIDE RECORDS SUMMARY | 2024-08-30 14:33 | XMS_ITS ---
Author Organization [facility] Address [address] [place] [address] Care Team Providers Care Floor Attendant Name Role Phone Etienne Florez MD Unavailable [phone] Enrique Gonzalez MD Unavailable [phone] Nelson Ross MD Unavailable Laz Valencia MD Unavailable Russell Moran MD Unavailable [phone] Yuliya Ibarra MD Unavailable [phone] Phuong Callejas DPM Unavailable [phone] Sy Barrientos MD Unavailable Russell Moran MD Unavailable Rico Gasca MD Unavailable Elle Landaverde MD Unavailable [phone] Kirk Truong MD Unavailable Shira Love DO Unavailable [phone] Sara Schultz MD Unavailable [phone] Hussain Ray MD Unavailable Elizabeth Car MD Primary Care Provider + Active Problems Problem Noted Date Diagnosed Date 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 05/20/2022 Chronic indwelling Olivas catheter 05/19/2022 Gastric outlet obstruction 05/18/2022 Chronic diastolic CHF (congestive heart failure) 05/01/2021 Overview (05/01/2021): Encounter Details Date Type Department Care Team Description 07/31/2020 Office Visit [facility] [address] [place] [phone] Laz Valencia MD Type 2 diabetes [...] from 09/16/2017:Stage IA(cT1b, cN0, cM0, G2, ER+, CA+, HER2-) - Signed by Clarita Mir MD on 10/31/2018 Pathologic stage from 09/17/2017:Stage IA(pT1c, pN0(sn), cM0, G2, ER+, CA+, HER2-) - Signed by Clarita Mir MD [...] 60 % blockage 2011 Lymphatic edema Current Treatment and Therapy Plans OP SUPPORT (DENOSUMAB) Q168 DAYS (PROLIA)* [...] medications schedul ed. No medications scheduled. Past Treatment and Therapy Plans No past plan information found. Lifetime Dose Tracking * Chemical Lifetime Dose [...] proteus Assessment & Plan (07/20/2019 8:50 PM BRAZE OPERATOR): - Lower urinary tract symptoms (LUTS) 03/23/2019 11/23/2019 Overview (03/24/2019): 11/2018 on myrbetriq 25mg (Dr. Gasca) with some improvement. Had confusion with 50mg? 03/24/19 PVR 304mL. Olivas placed for incontinence, quality of life. Stop myrbetriq. Assessment & Plan (07/20/2019 8:50 PM BRAZE OPERATOR): - Assessment & Plan (06/01/2019 9:22 PM BRAZE OPERATOR): - Assessment & Plan (03/23/2019 4:31 PM BRAZE OPERATOR): - Pneumonia due to infectious organism 07/24/2018 [...]
--- OUTSIDE RECORDS SUMMARY | 2024-08-30 14:33 | XMS_ITS | Clinical Summary ---
Author Organization [facility] Address [address] [place] [address] Care Team Providers Care Calender Let Off Operator Name Role Phone Etienne Florez MD Unavailable [phone] Enrique Gonzalez MD Unavailable [phone] Nelson Ross MD Unavailable Laz Valencia MD Unavailable Russell Moran MD Unavailable Yuliya Ibarra MD Unavailable [phone] Phuong Callejas DPM Unavailable [phone] Sy Barrientos MD Unavailable Russell Moran MD Unavailable Rico Gasca MD Unavailable Elle Landaverde MD Unavailable Kirk Truong MD Unavailable Shira Love DO Unavailable [phone] Sara Schultz MD Unavailable [phone] Hussain Ray MD Unavailable [phone] Elizabeth Car MD Primary Care Provider + Source Comments [facility],non-owned Affiliates and Associated Physician Practices is amultiple site organization consisting of ambulatory clinics and hospital sitesin [place], [place], [place] and [place]. This disclosure is being madepursuant to the Care Everywhere program and may not contain all information available regarding this patient. Last updated 18.[facility] Allergies Active Allergy Reactions Criticality [...] document. Alwaysverify current medications with the patient. multivitamin with iron (ONE A DAY WITH IRON) tablet Take 1 Tab by mouth once daily. Active SITagliptin (JANUVIA) 100 MG tablet Take 100 mg by mouth once daily Active PROLENSA 0.07 % opthalmic solution Instill 1 drop into right eye once daily 2 02/26/20 19 Active spironolactone (ALDACTONE) 25 MG tablet Take 25 mg by mouth once daily Active dorzolamide (TRUSOPT) 2 % ophthalmic solution Instill 1 drop into both eyes 2 times daily 11/16/19 20 Active vitamin D3 (CHOLECALCIFEROL) 25 MCG (1000 UNITS) tablet Take 1,000 Units by mouth once daily Active furosemide (LASIX) 40 MG tablet Take 1 (one) tablet by mouth once daily 90 tablet 2 07/04/19 21 Active flecainide (TAMBOCOR) 50 MG tablet Take 1 (one) tablet by mouth 2 times daily 09/12/19 21 Active linaCLOtide (LINZESS) 290 MCG capsule Take 290 mcg by mouth daily before breakfast Take on an empty stomach at least 30 minutes prior to first meal of the day. Active trospium (SANCTURA) 20 MG tablet Take 20 mg by mouth 2 times daily 01/05/20 21 Active Other pneumatic compression pump twice a day on her legs for lymphedema. Setting are between 40 to 50 mmgh DX lymphedema 1 Each 08/16/19 22 Active anastrozole (Arimidex) 1 MG tablet Take [...] capsule by mouth 2 times daily Active HYDROcodone-aceta minophen ([place]) 5-325 MG tablet Take 1 (one) tablet [...] 1 (one) tablet by mouth at bedtime 05/30/19 23 Active bisacodyl (Dulcolax) 10 MG suppository Insert 1 (one) suppository into the rectum once daily as needed for Constipation 05/30/19 23 Active senna-docusate (Senokot-S) 8.6-50 MG tablet Take 1 (one) tablet by mouth once daily 05/30/19 Active polyethylene glycol 3350 (Miralax) 17 g packet Take 17 (seventeen) g by mouth once daily 05/30/19 Active acetaminophen (Tylenol) 325 MG tablet Take 2 (two) tablets by mouth every 6 hours as needed Maximum allowable Acetaminophen amount = 4 Grams (4000 mg) / 24 hours. 05/30/19 Active potassium chloride ER (Klor-Con M) 20 MEQ tablet Take 1 (one) tablet by mouth once daily 05/30/19 Active metoclopramide (Reglan) 10 MG tablet Take 1 (one) tablet by mouth 3 times daily as needed for Nausea/Vomiting 05/30/19 Active Active Problems Problem Noted Date Diagnosed Date 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 05/20/2022 Chronic indwelling Olivas catheter 05/19/2022 Gastric outlet obstruction 05/18/2022 Chronic diastolic CHF (congestive heart failure) 05/01/2021 Overview (05/01/2021): Encounter Details Date Type Department Care Team Description 07/31/2020 Office Visit [place] [facility] [address] [place] [phone] Laz Valencia MD Type 2 diabetes [...] from 09/16/2017:Stage IA(cT1b, cN0, cM0, G2, ER+, AZ+, HER2-) - Signed by Clarita Mir MD on 10/31/2018 Pathologic stage from 09/17/2017:Stage IA(pT1c, pN0(sn), cM0, G2, ER+, AZ+, HER2-) - Signed by Clarita Mir MD on 10/31/2018 Overview (10/31/2018): Left, upper outer, 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 ER pos 97% (strong), AZ pos 23% (moderate), Her-2 neg (1+ on [...] proteus Assessment & Plan (07/20/2019 8:50 PM HEATER WORKER): - Lower urinary tract symptoms (LUTS) 03/23/2019 11/23/2019 Overview (03/24/2019): 11/2018 on myrbetriq 25mg (Dr. Gasca) with some improvement. Had confusion with 50mg? 03/24/19 PVR 304mL. Olivas placed for incontinence, quality of life. Stop myrbetriq. Assessment & Plan (07/20/2019 8:50 PM HEATER WORKER): - Assessment & Plan (06/01/2019 9:22 PM HEATER WORKER): - Assessment & Plan (03/23/2019 4:31 PM HEATER WORKER): - Pneumonia due to infectious organism 07/24/2018 [...] thyroid TIA (transient ischemic attack) 12/04/2020 Immunizations Immunization Administration Dates Next Due INFLUENZA VACCINE, TRIV. (AF LURIA, FLUZONE TRIVALENT; 6MO+) (IIV3) 02/04/2013,02/14/2012,02/10/2012 CovTranscribeMe primary monoval ent 12+ yr 0.3mL Purple [...] money to get more. 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 on file Not on file Not on fi le Last Filed Vital Signs Vital Sign Reading Time Taken Comments Blood Pressure 127/52 05/30/2022 8:09 AM HEATER WORKER Pulse 80 05/30/2022 8:09 AM HEATER WORKER Temperature 37 C (98.6 F) 05/30/2022 8:09 AM HEATER WORKER Respiratory Rate 19 05/30/2022 8:09 AM HEATER WORKER Oxygen Saturation 96% 05/30/2022 8:09 AM HEATER WORKER Inhaled Oxygen Concentration - - Weight 85.1 kg (187 lb 10.5 oz) 05/23/2022 4:00 AM HEATER WORKER Height 162.6 cm (5' 4 ) 05/22/2022 11:3 9 AM HEATER WORKER Body Mass Index 32.21 05/22/2022 11:39 AM HEATER WORKER Plan of Treatment Health Maintenance Due Date [...] < 140/90 Blood Pressure 127/52(2022 8:09 AM HEATER WORKER) No Alisa Jaramillo HEMOGLOBIN A1C < [...] Narrative 10/22/2021 Ordered by an unspecified provider. us Scanned Document SCANNING ONLY Final Result * HEMOGLOBIN A1C (12/08/2020 12:00 AM CDT) Hemoglobin A1c 5.4 4.8 - 5.6 % [facility] INSURANCE BILL Comment: . Prediabetes: 5.7 - 6.4 Diabetes: >6.4 Glycemic control for adults with diabetes: <7.0 Blood BLOOD SPECIMEN / Unknown 12/08/2020 12/08/2020 Narrative Resulting Agency Comment Lab Testing performed at: [facility] [place] [address] [facility] [id number] us Theresa Camargo MD LAB - CHEMISTRY ORDERABLES Fin al Result [employer] INSURANCE BILL [address] [place] [address] * DEXA BONE DENSITY AXIAL SKELETON (10/29/2017 [...] 11:17 AM Enrique Gonzalez MD DEXA ORDERABLES Final Result from Last 3 Months or Most Recently Relevant to Health Maintenance Insurance MEDICARE [facility] MEDICARE MANAGED CARE PLAN GENERIC MEDICARE ADV Care Advance Directives Documents on File Type Date Recorded Patient Services Tech Expl anation Adv Directive/Living Will/POA 09/21/2020 7:42 [...] 8:33 PM 08/26/2017 12:39 PM Care Teams Calender Let Off Operator Relationship Specialty Start Date End Date Elizabeth Car MD [address] [place] [address] PCP - General Family Medicine 08/15/22 Etienne Florez MD Orthopedic Surgery 12/09/14 [place] [address] [facility] [address] [place] [address] Oncology 09/15/17 [place] [address] [facility] [address] [place] [address] Neurology 06/26/18 [place] [address] [facility] [address] [place] [address] Cardiovascular Disease 06/26/18 Russell Moran MD [address] [place] [address] Pulmonary Disease 06/26/18 Yuliya Ibarra MD [address] [address] [place] [address] Endocrinology 06/26/18 Phuong Callejas DPM [address] [place], [place] [id number] Podiatry 06/26/18 Sy Barrientos MD [address] [place] [address] Ophthalmology 06/26/18 [place] [address] [address] Pulmonary Disease 06/26/18 Rico Gasca MD [address] [facility] [address] [place] [address] Urology 06/26/18 Elle Landaverde MD [address] [place] [address] Vascular Surgery 06/26/18 Kirk Truong MD [address] [place] [address] Gastroenterology 06/26/18 [place] [address] [facility] [address] [place] [address] General Surgery 06/26/18 [place] [address] [facility] [address] [place], [place] [id number] Pulmonary Disease 11/10/20 Hussain Ray MD [address] [facility] [address] [place] [address] Urology 07/11/21
--- OUTSIDE RECORDS SUMMARY | 2024-08-30 14:33 | XMS_ITS | Encounter Summary ---
Author Organization [facility] Address [address] [facility] [place] [address] Care Team Providers Care Stockroom Attendant Name Role Phone Etienne Florez MD Unavailable Enrique Gonzalez MD Unavailable [phone] Theresa Camargo MD Primary Care Provider Nelson Ross MD Unavailable Laz Valencia MD Unavailable Russell Moran MD Unavailable Yuliya Ibarra MD Unavailable Phuong Callejas DPM Unavailable Sy Barrientos MD Unavailable Russell Moran MD Unavailable [phone] Rico Gasca MD Unavailable [phone] Elle Landaverde MD Unavailable Kirk Truong MD Unavailable [phone] Shira Love DO Unavailable [phone] Sara Schultz MD Unavailable [phone] Hussain Ray MD Unavailable [phone] Enrique Gonzalez MD Unavailable [phone] Rosa Abraham RN Unavailable [phone] Elizabeth Car MD Primary Care Provider + Theresa Camargo MD Primary Care Provider [phone] Rosa Abraham RN Unavailable [phone] Elizabeth Car MD Primary Care Provider + Encounter Details Date Type Department Care Team (Late st Contact Info) Description 02/05/2022 [facility] Outpatient Visit [facility] Health Cancer Care [address] [place] [address] [place] [id number] [place] [address] Social History Tobacco Use Types Packs/Day Years Used Date Smoking Tobacco: Never Smokeless Tobacco: Never Alcohol Use Standard Drinks/Week Comments No 0 (1 standard drink = 0.6 oz pur e alcohol) PHQ-2 Answer Date Recorded PHQ2 TOTAL SCORE 0 08/01/2021 Comments No Sex and Gender Information Value Date Recorded Sex Assigned at Not on file Legal Sex Female 11:53 AM TELEPHONE CLAIMS REPRESENTATIVE Gender Identity Not on file Sexual Orientation Not on file 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 Answer Date of Assessment Author No 09/27/2020 3:17 PM Je Yu RN * Is person blind or have serious difficulty seeing? Answer Date of Assessment Author No 09/27/2020 3:17 PM Je Yu RN * Does person have serious difficulty walking/climbing stairs? Answer Date of Assessment Author Yes 09/27/2020 3:17 PM CDT Je Huber RN * Does person have difficulty dressing/bathing? Answer Date of Assessment Author Yes 09/27/2020 3:17 PM CDT Je Huber RN * Does person have difficulty doing errands alone? Answer Date of Assessment Author Yes 09/27/2020 3:17 PM CDT Je Huber RN documented as of this encounter Mental Status * Does person have difficulty concentrating/remembering/making decisions? Answer Entry Date Author No 09/27/2020 3:17 PM CDT Je Huber RN documented in this encounter Plan of Treatment Not on file documented as of this encounter Goals Goal Patient Goal Type Associated Problems Recent Progress Patient-Stated? Author Blood Pressure < 140/90 Blood Pressure 127/52(2022 8:09 AM TELEPHONE CLAIMS REPRESENTATIVE) No Alisa Jaramillo HEMOGLOBIN A1C < 7.0 Result Component 5.4( 12:00 AM CDT) No Alisa Jaramillo documented as of this encounter Visit Diagnoses Not on filedocumented in this encounter Additional Health Concerns Infection Onset Date Last Indicated Resolved Time CDIFF Under Investigation 05/19/2022 05/19/2022 9:06 PM TELEPHONE CLAIMS REPRESENTATIVE documented as of this encounter Care Teams Stockroom Attendant Relationship Specialty Start [place] [address] [facility] [address] [place] [address] PCP - General Internal Medicine 03/31/18 05/30/22 [place] [address] [facility] [address] [place] [address] PCP - Attributed-MSSP 11/16/21 10/03/22 Elizabeth Car MD [address] [facility] [address] [place] [address] PCP - General Family Medicine 05/31/22 08/05/22 [place] [address] [facility] [address] [place] [address] PCP - General 08/06/22 08/14/22 Elizabeth Car MD [address] [place] [address] PCP - General Family Medicine 08/15/22 Etienne Florez MD Orthopedic Surgery 12/09/14 [place] [address] [facility] [address] [place] [address] Oncology 09/15/17 [place] [address] [facility] [address] [place] [address] Neurology 06/26/18 [place] [address] [facility] [address] [place] [address] Cardiovascular Disease 06/26/18 [place] [address] [address] Pulmonary Disease 06/26/18 Yuliya Ibarra MD [address] [facility] [address] [place] [address] Endocrinology 06/26/18 Phuong Callejas DPM [address] [place] [address] Podiatry 06/26/18 Sy Barrientos MD [address] [place] [address] [place] [address] Ophthalmology 06/26/18 [place] [address] [address] Pulmonary Disease 06/26/18 Rico Gasca MD [address] [facility] [address], [place] [address] Urology 06/26/18 Elle Landaverde MD [address] [address] Vascular Surgery 06/26/18 Kirk Truong MD [address] [address] Gastroenterology 06/26/18 [place] [address] [facility] [address] [place] [address] General Surgery 06/26/18 [place] [address] [place] [address] Pulmonary Disease 11/10/20 Hussain Ray MD [address] [facility] [address] [place] [address] Urology 07/11/21 Rosa Abraham RN Community Education CoordinatorWhite Work Cleaner 05/31/22 05/31/22 Rosa Abraham RN Community Education CoordinatorWhite Work Cleaner 08/15/22 08/15/22 documented as of this encounter
--- OUTSIDE RECORDS SUMMARY | 2024-08-30 14:33 | XMS_ITS | Encounter Summary ---
Author Organization [facility] Address [address] [facility] [place] [address] Care Team Providers Care Psychiatry Instructor Name Role Phone Etienne Florez MD Unavailable Enrique Gonzalez MD Unavailable [phone] Theresa Camargo MD Primary Care Provider [phone] Nelson Ross MD Unavailable Laz Valencia MD Unavailable Russell Moran MD Unavailable Yuliya Ibarra MD Unavailable Phuong Callejas DPM Unavailable [phone] Sy Barrientos MD Unavailable [phone] Russell Moran MD Unavailable Rico Gasca MD Unavailable Elle Landaverde MD Unavailable Kirk Truong MD Unavailable [phone] Shira Love DO Unavailable [phone] Theresa Camargo MD Unavailable + [phone] Brooke Haynes TOURIST GUIDE-PRECAST MOLDER Unavailable [phone] Theresa Camargo MD Unavailable [phone] Brooke Haynes TOURIST GUIDE-PRECAST MOLDER Unavailable [phone] Theresa Camargo MD Unavailable [phone] Asha Narvaez TOURIST GUIDE-PRECAST MOLDER Unavailable [phone] Theresa Camargo MD Unavailable + 00 Asha Narvaez TOURIST GUIDE-PRECAST MOLDER Unavailable +[phone] Sara Schultz MD Unavailable + [phone] Brooke Haynes TOURIST GUIDE-PRECAST MOLDER Unavailable [phone] Rosa Abraham RN Unavailable + Hussain Ray MD Unavailable + 00 Theresa Camargo MD Unavailable + 00 Enrique Gonzalez MD Unavailable + 42 Rosa Abraham RN Unavailable + [phone] Elizabeth Car MD Primary Care Provider + Theresa Camargo MD Primary Care Provider +[phone] Rosa Abraham RN Unavailable + [phone] Elizabeth Car MD Primary Care Provider + Jarrell Garrison MD Unavailable Brooke Haynes TOURIST GUIDE-PRECAST MOLDER Unavailable +[phone] Encounter Details Date Type Department Care Team (Late st Contact Info) Description 08/05/2017 [facility] [address] [place] [address] Shira Love, [address] [place] [address] Social History Tobacco Use Types Packs/Day Years Used Date Smoking Tobacco: Never Smokeless Tobacco: Never Alcohol Use Standard Drinks/Week Comments No 0 (1 standard drink = 0.6 oz pur e alcohol) Comments No Sex and Gender Information Value Date Recorded Sex Assigned at Not on file Legal Sex Female 11:53 AM FORGING MACHINE HAND Gender Identity Not on file Sexual Orientation Not on file documented as of this encounter Functional Status * Is person deaf or have serious hearing difficulty? Answer Date of Assessment Author No 12/28/2016 8:42 PM CDT Alessio Cedeno RN * Is person blind or have serious difficulty seeing? Answer Date of Assessment Author No 12/28/2016 8:42 PM CDT Alessio Cedeno RN * Does person have serious difficulty walking/climbing stairs? Answer Date of Assessment Author Yes 12/28/2016 8:42 PM CDT Alessio Cedeno RN * Does person have difficulty dressing/bathing? Answer Date of Assessment Author No 12/28/2016 8:42 PM CDT Alessio Cedeno RN * Does person have difficulty doing errands alone? Answer Date of Assessment Author Yes 12/28/2016 8:42 PM CDT Alessio Cedeno RN documented as of this encounter Mental Status * Does person have difficulty concentrating/remembering/making decisions? Answer Entry Date Author No 12/28/2016 8:42 PM CDT Alessio Cedeno RN documented in this encounter Plan of Treatment Not on file documented as of this encounter Goals Goal Patient Goal Type Associated Problems Recent Progress Patient-Stated? Author Blood Pressure < 140/90 Blood Pressure 127/52(2022 8:09 AM FORGING MACHINE HAND) No Alisa Jaramillo HEMOGLOBIN A1C < 7.0 Result Component 5.4( 12:00 AM CDT) No Alisa Jaramillo documented as of this encounter Visit Diagnoses Not on filedocumented in this encounter Additional Health Concerns Infection Onset Date Last Indicated Resolved Time COVID-19 Under Investigation 09/26/2020 09/26/2020 09/27/2020 7:46 AM CDT CDIFF Under Investigation 05/19/2022 05/19/2022 9:06 PM FORGING MACHINE HAND documented as of this encounter Care Teams Psychiatry Instructor Relationship Specialty [place] [address] [place] [address] PCP - General Internal Medicine 03/31/18 05/30/22 [place] [address] [place] [address] PCP - Attributed-MSSP 03/19/19 06/18/19 Brooke Haynes APRN-PRECAST MOLDER [address] [place] [address] PCP - Attributed-MSSP 06/19/19 07/17/19 [place] [address] [place] [address] PCP - Attributed-MSSP 07/18/19 10/17/19 Brooke Haynes TOURIST GUIDE-PRECAST MOLDER [address] [place] [address] PCP - Attributed-MSSP 10/18/19 11/16/19 [place] [address] [place] [address] PCP - Attributed-MSSP 11/17/19 02/16/20 Asha Narvaez TOURIST GUIDE-PRECAST MOLDER [address] [place] [address] PCP - Attributed-MSSP 02/17/20 06/18/20 [place] [address] [place] [address] PCP - Attributed-MSSP 06/19/20 08/16/20 Asha Narvaez APRN-PRECAST MOLDER [address] [facility] [address] [place] [address] PCP - Attributed-MSSP 08/17/20 10/16/20 Brooke Haynes TOURIST GUIDE-PRECAST MOLDER [address] [facility] [address] [place] [address] PCP - Attributed-MSSP 10/17/20 09/15/21 [place] [address] [facility] [address] [place] [address] PCP - Attributed-MSSP 09/16/21 11/15/21 [place] [address] [facility] [address] [place] [address] PCP - Attributed-MSSP 11/16/21 10/03/22 Elizabeth Car MD [address] [facility] [address] [place] [address] PCP - General Family Medicine 05/31/22 08/05/22 [place] [address] [facility] [address] [place] [address] PCP - General 08/06/22 08/14/22 Elizabeth Car MD [address] [facility] [address] [place] [address] PCP - General Family Medicine 08/15/22 Jarrell Garrison MD [address] [facility] [address] [place] [address] PCP - Attributed-MSSP 04/18/18 10/16/18 Brooke Haynes APRN-PRECAST MOLDER [address] [facility] [address] [place] [address] PCP - Attributed-MSSP 10/17/18 9 Etienne Florez MD Orthopedic Surgery 12/09/14 [place] [address] [facility] [address] [place] [address] Oncology 09/15/17 [place] [address] [facility] [address] [place] [address] Neurology 06/26/18 [place] [address] [facility] [address] [place] [address] Cardiovascular Disease 06/26/18 [place] [address] [address] Pulmonary Disease 06/26/18 Yuliya Ibarra MD [address] [facility] [address] [place] [id number] Endocrinology 06/26/18 Phuong Callejas DPM [address] [place] [address] Podiatry 06/26/18 Sy Barrientos MD [address] [place] [address] [place] [address] Ophthalmology 06/26/18 [place] [address] [address] Pulmonary Disease 06/26/18 Rico Gasca MD [address] [phone] Urology 06/26/18 Elle Landaverde MD [address] [phone] Vascular Surgery 06/26/18 Kirk Truong MD [address] [phone] Gastroenterology 06/26/18 [place] [address] [facility] [address] [place] [phone] General Surgery 06/26/18 [place] [address] [facility] [address] [place], [place] [id number] Pulmonary Disease 11/10/20 Rosa Abraham, DES Navy Material InspectorLode Miner 06/19/21 07/05/21 Hussain Ray MD [address] [place] [address] Urology 07/11/21 Rosa Abraham RN Navy Material InspectorLode Miner 05/31/22 05/31/22 Rosa Abraham RN Navy Material InspectorLode Miner 08/15/22 08/15/22 documented as of this encounter
--- OUTSIDE RECORDS SUMMARY | 2024-08-30 14:33 | XMS_ITS | Clinical Summary ---
Author Organization [facility] Address [address] [place] [address] Phone Care Team Providers Care Crochet Machine Operator Name Role Phone Theresa Camargo MD Primary Care Provider [phone] Allergies Active Allergy Reactions Criticality Noted Date [...] 28 gauge 100 Each by [facility].(Non-Drug; Combo Route) route [...] complication, without long-term current use of insulin ([facility]) TAKE 2 TABLETS BY MOUTH WITH BREAKFAST [...] on file Legal Sex Female 6:00 AM LIGHT INDUSTRIAL Gender Identity Not on file Sexual Orientation [...] cm (5' 5 ) 06/06/2022 1:30 PM LIGHT INDUSTRIAL Body Mass Index 26.63 06/06/2022 1:30 PM LIGHT INDUSTRIAL Plan of Treatment Upcoming Encounters Date Type Department Care Team (Late st Contact Info) Description 09/27/2024 2:00 PM CDT Office Visit [facility] Oncology and Hematology - [place] [address] [place] [address] Ovidio Nolen MD [address] [facility] [address] [place] [address] Health Maintenance Due Date Last [...] year Discontinued Medical Devices Implanted Type Area Lock Technician Device Identifier Shelf Expiration Date Model / Serial / Lot Log [id number] - Bladder Slings And Tapes - 1 - Sling Desara System [id number] Implanted:Qty: 1 on 09/10/2010 at [facility] Sling N/A: Vagina [email or web address] 05/17/2013 [id number] / / [id number] Procedures Procedure Name Priority Date/Time Associated Diagnosis Comments XR DEXA BONE DENSITY AXIAL 1 OR MORE SITES Routine 06/06/2020 10:40 AM LIGHT INDUSTRIAL Hyperparathyroidism, unspecified Subclinical hypothyroidism HEMOGLOBIN A1C Routine 05/05/2020 1:54 PM LIGHT INDUSTRIAL Type 2 diabetes mellitus not at goal ([facility]) MICROALBUMIN/CREATI NINE RATIO, RANDOM UR Routine 05/02/2017 12:38 PM LIGHT INDUSTRIAL Type 2 diabetes mellitus without complication, without long-term current use of insulin ([facility]) LIPID PANEL Routine 12/12/2016 4:14 AM CDT Type 2 diabetes mellitus without complication, with long-term current use of insulin ([facility]) from Last 3 Months or Most Recently Relevant to Health Maintenance Results * XR DEXA BONE DENSITY AXIAL 1 OR MORE SITES (06/06/2020 10:40 AM LIGHT INDUSTRIAL) Anatomical Region Laterality Modality Digital Radiogra phy 06/06/2020 11:0 3 AM LIGHT INDUSTRIAL Impressions 06/06/2020 11:14 AM LIGHT INDUSTRIAL IMPRESSION: This is a summary page. Please refer to the complete detailed report found in the Imaging Section of the [facility] EMR. Osteopenia. Lumbar Spine: T-Score: -1.5 Left [...] Smart MD DICTATION LOCATION: 06/06/2020 11:14 AM LIGHT INDUSTRIAL EXAMINATION: BONE DENSITY STUDY (DXA) DATE: 06/06/2020 10:40 AM HISTORY: 79 years Female. Postmenopausal. PROCEDURE: Planar images of the lumbar spine, hip(s) and forearm(s) using a Validic DEXA scanner for bone mineral density determination [...] lumbar spine, hip(s) and forearm(s) using a Validic DEXA scanner for bone mineral density determination [...] found in the Imaging Section of the [facility] EMR. Osteopenia. Lumbar Spine: T-Score: -1.5 Left [...] * (ABNORMAL) HEMOGLOBIN A1C (05/05/2020 1:54 PM LIGHT INDUSTRIAL) HEMOGLOBIN A1C 7.1(H) <5.7 % of total Hgb [facility] Comment: For someone without known [...] of diabetes for children. Test Performed at: [facility] [address] [place] [address] Elie Hamlin D.O., MPH Blood 05/05/2020 1:54 PM LIGHT INDUSTRIAL Yuliya Ibarra MD CHEMISTRY ORDERABLES Final Re sult [facility] [address] [place] [address] * MICROALBUMIN/CREATININE RATIO, RANDOM UR (05/02/2017 12:38 PM LIGHT INDUSTRIAL) MICROALBUMIN, URINE <1.2 No Reference Range mg/dL 05/02/2017 2:23 PM LIGHT INDUSTRIAL [facility] CREATININE, URINE 59.8 29.0 - 226.0 mg/dL 05/02/2017 2:23 PM LIGHT INDUSTRIAL [facility] Comment: Reference Range varies with fluid intake and diet. MICROALBUMIN/C REAT RATIO, UR <20.1 <25.0 mg/g 05/02/2017 2:23 PM LIGHT INDUSTRIAL [facility] Urine URINE SPECIMEN OBTAINED BY CLEAN CATCH PROCEDURE / Unknown Collection / Unknown 05/02/2017 12:38 PM LIGHT INDUSTRIAL 05/02/2017 1:18 PM LIGHT INDUSTRIAL Narrative [facility] - 05/02/2017 2:23 PM LIGHT INDUSTRIAL Condition Microalbumin/Creat ratio Normal Males <17 Normal Females <25 Microalbuminuria Males 17-299 Microalbuminuria Females 25-299 Overt proteinuria >=300 Yuliya Ibarra MD URINE ORDERABLES Final Result [facility] CLIA# [id number] [address] [place] [address] * (ABNORMAL) LIPID PANEL (12/12/2016 4:14 AM CDT) CHOLESTEROL 97(L) 125 - 200 mg/dL [facility] HDL 33(L) > OR = 46 mg/dL [facility] TRIGLYCERIDE 138 <150 mg/dL [facility] Backtrace I/O [facility] LDL CALCULATED 36 <130 mg/dL (calc) [facility] Comment: Desirable range <100 mg/dL for patients with CHD or diabetes and <70 mg/dL for diabetic patients with known heart disease. CHOL/HDL RATIO 2.9 < OR = 5.0 (calc) [facility] TOTAL NON-HDL CHOL(LDL+VLDL) 64 mg/dL (calc) [facility] Comment: Target for non-HDL cholesterol is 30 mg/dL higher than LDL cholesterol target. Test Performed at: [facility] [address] [place] [address] ELIE HAMLIN DO,MPH Blood 12/12/2016 4:14 AM CDT Yuliya Ibarra MD CHEMISTRY ORDERABLES Final Re sult [facility] [address] [place] [address] from Last 3 Months or Most Recently Relevant to Health Maintenance Insurance [place]ICAID [place] PART A AND B Advance Directives For more information, please contact: [phone] Documents on File Type Date Recorded Patient Network Technology Instructor Expl anation Advance Directive POA 11/14/2014 10:49 AM * Full Code (Latest Code Status on File) Date Activated Date Inactivated Comments 09/10/2010 6:07 PM 09/11/2010 5:58 PM * Full Code Date Activated Date Inactivated Comments 09/10/2010 11:59 AM 09/10/2010 6:07 PM * Full Code Date Activated Date Inactivated Comments 09/10/2010 10:29 AM 09/10/2010 11:59 AM Care Teams Crochet Machine Operator Relationship Specialty [place] [address] [address] PCP - General Internal Medicine 08/14/18
--- OUTSIDE RECORDS SUMMARY | 2024-08-30 14:34 | XMS_ITS | Clinical Summary ---
Author Organization [facility] Address [address] [place] [address] Care Team Providers Care Aeroplane Pilot Name Role Phone Migue Herman MD Unavailable [phone] Sonny Palmer MD Unavailable [phone] Unknown, Notinfile Primary Care Provider Unavail able [...] 1 tablet (150 mcg total) by mouth sixth grade teacher before breakfast 4 Active levothyroxine (SYNTHROID) 75 mcg tablet Take 1 tablet (75 mcg total) by mouth sixth grade teacher before breakfast Once a day MON thru [...] (12/22/2020): Added automatically from request for surgery [id number] Cystitis 05/14/2019 Chronic constipation 05/14/2019 Recurrent inguinal [...] 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 Lymphedema of both lower extremities 10/01/2017 [...] Description 08/12/2024 10:00 AM CDT Office Visit [facility] Medical [facility] Cardiology [address] [place] [address] Maria Dolores Kinsey NP Shortness of breath (Primary Dx); Aortic valve stenosis, etiology of cardiac valve disease unspecified; Coronary artery disease involving [place] coronary artery of [place] heart without angina pectoris; PAF (paroxysmal atrial [...] any clubs o r organizations such as catholic groups, unions, fraternal or athletic groups, or [...] on file Legal Sex Female 6:56 PM 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 Gender Identity Not on file Sexual Orientation [...] REPORT Routine 08/13/2024 PAF (paroxysmal atrial fibrillation) ([facility]) EGFR Routine 08/30/2022 12:10 PM CDT PLASMA [...] LAB BLOOD ORDERABLES Fi nal Result [facility] [address] [facility] Department [place] [address] * (ABNORMAL) Plasma lipid panel (08/18/2015 5:00 AM CDT) [facility] Cholesterol 112 100 - 200 mg/dl HISTORICAL RESULTS Triglycerides 175(H) 10 - 150 mg/dl HISTORICAL RESULTS HDL 27(L) 40 - 59 mg/dl HISTORICAL RESULTS LDL 50(L) 60 - 129 mg/dl HISTORICAL RESULTS Plasma 08/18/2015 5:00 AM CDT Narrative HISTORICAL RESULTS - 08/18/2015 6:29 AM CDT Test performed at [address], [facility]. Historical Provider LAB BLOOD ORDERABLES Bárbara l Result Performing Organization Address City/[facility] Co de Phone Number HISTORICAL RESULTS from Last 3 Months or Most Recently Relevant to Health Maintenance Insurance IDPA MEDICARE COMMERCIAL GENERIC MEDICARE COMMERCIAL GENERIC ATTN: [place]S [place] [address] [employer] MEDICARE Advance Directives For more information, please contact: [phone] Documents on File Type Date Recorded Patient Phlebotomist Prn Expl anation ADVANCE DIRECTIVE 04/06/2018 9:51 PM [...] 1:59 PM 03/22/2019 10:28 PM Care Teams Aeroplane Pilot Relationship Specialty Start Date End Date Unknown, Notinfile PCP - General 08/12/24 Migue Herman MD Consulting Physician Urology 05/16/19 Sonny Palmer MD Surgeon General Surgery 05/16/19
--- OUTSIDE RECORDS SUMMARY | 2024-08-30 14:34 | XMS_ITS | Referral Summary ---
Author Organization [facility] Address [address] [place] [address] Care Team Providers Care Nursery School Teacher Name Role Phone Migue Herman MD Unavailable [phone] Sonny Palmer MD Unavailable [phone] Unknown, Notinfile Primary Care Provider Unavail able Encounters Date Type Department Care Team Description 08/12/2024 10:00 AM CDT Office Visit [facility] Medical Group Cardiology [address] [place] [address] Maria Dolores Kinsey NP Shortness of breath (Primary Dx); Aortic valve stenosis, etiology of cardiac valve disease unspecified; Coronary artery disease involving [place] coronary artery of [place] heart without angina pectoris; PAF (paroxysmal atrial [...] 1 tablet (150 mcg total) by mouth professor of early childhood education before breakfast 4 Active levothyroxine (SYNTHROID) 75 mcg tablet Take 1 tablet (75 mcg total) by mouth professor of early childhood education before breakfast Once a day MON thru [...] (12/22/2020): Added automatically from request for surgery [id number] Cystitis 05/14/2019 Chronic constipation 05/14/2019 Recurrent inguinal [...] 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 Lymphedema of both lower extremities 10/01/2017 [...] often do you attend chur ch or yazdanism services? Never 12/25/2020 Do you belong to [...] on file Legal Sex Female 6:56 PM LANGUAGE PATHOLOGIST Gender Identity Not on file Sexual Orientation [...] Report (08/13/2024) 08/13/2024 us Maria Dolores Kinsey TIME SIGNAL WIRER ECG ORDERABLES Final Res ult * eGFR [...] LAB BLOOD ORDERABLES Fi nal Result [facility] [address] Department [place] [address] * (ABNORMAL) Plasma lipid panel (08/18/2015 5:00 AM CDT) Cholesterol 112 100 - 200 mg/dl HISTORICAL RESULTS Triglycerides 175(H) 10 - 150 mg/dl HISTORICAL RESULTS HDL 27(L) 40 - 59 mg/dl HISTORICAL RESULTS LDL 50(L) 60 - 129 mg/dl HISTORICAL RESULTS Plasma 08/18/2015 5:00 AM CDT Narrative HISTORICAL RESULTS - 08/18/2015 6:29 AM CDT Test performed at [facility], [address] [place] [address], [facility], [address]. [place] Historical Provider LAB BLOOD ORDERABLES Bárbara mcdaniel Result HISTORICAL RESULTS from Last 3 Months or Most Recently Relevant to Health Maintenance Insurance [facility] MEDICARE [facility] Address: [address] [address] [place] [address] COMMERCIAL GENERIC [place] [address] MEDICARE COMMERCIAL GENERIC ATTN: CLAIMS [place] [address] [facility] MEDICARE Advance Directives For more information, please contact: [phone] Documents on File Type Date Recorded Patient Planer Chain Offbearer Expl anation ADVANCE DIRECTIVE 04/06/2018 9:51 PM [...] 1:59 PM 03/22/2019 10:28 PM Care Teams Nursery School Teacher Relationship Specialty Start Date End Date Unknown, Notinfile PCP - General 08/12/24 Migue Herman MD Consulting Physician Urology 05/16/19 Sonny Palmer MD Surgeon General Surgery 05/16/19
--- OUTSIDE RECORDS SUMMARY | 2024-08-30 14:34 | XMS_ITS | Encounter Summary ---
Author Organization [facility] Address [address] [place] [address] Care Team Providers Care Rehabilitation Technician Name Role Phone Theresa Camargo MD Primary Care Provider Laz Valencia MD Unavailable [phone] Migue Herman MD Unavailable [phone] Sonny Palmer MD Unavailable [phone] Elizabeth Car MD Primary Care Provider Unknown, Notinfile Primary Care Provider Unavail able Encounter Details Date Type Department Care Team (Late st Contact Info) Description 08/01/2020 Telephone [facility] [address] [place] [address] Rosa Espinoza, RT Social History Tobacco Use Types Packs/Day Years Used Date Smoking Tobacco: Never Smokeless Tobacco: Never Alcohol Use Standard Drinks/Week Comments No 0 (1 standard drink = 0.6 oz pur e alcohol) PHQ-2 Answer Date Recorded PHQ-2 Score 0 03/06/2019 Comments No Sex and Gender Information Value Date Recorded Sex Assigned at Not on file Legal Sex Female 6:56 PM 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 Gender Identity Not on file Sexual Orientation Not on file documented as of this encounter Plan of Treatment Not on file documented as of this encounter Visit Diagnoses Not on filedocumented in this encounter Additional Health Concerns Infection Onset Date Last Indicated Resolved Time COVID: Suspected 12/20/2020 12/20/2020 12/20/2020 6:55 PM CDT documented as of this encounter Care Teams Rehabilitation Technician Relationship Specialty Start Date End Date Theresa Camargo MD PCP - General 09/29/18 12/05/22 Elizabeth Car MD [address] [facility] [address] [place] [address] PCP - General Family Medicine 12/06/22 08/11/24 Unknown, Notinfile PCP - General 08/12/24 Laz Valencia MD Consulting Physician Cardiology 03/22/19 12/05/22 Migue Herman MD Consulting Physician Urology 05/16/19 Sonny Palmer MD Surgeon General Surgery 05/16/19 documented as of this encounter
--- OUTSIDE RECORDS SUMMARY | 2024-08-30 14:34 | XMS_ITS ---
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 Lymphedema of both lower extremities 10/01/2017 [...]
[2024-08-30 14:36] LABS: Alveolar/Arterial O2 Gradient 78.6 mmHg; Base Excess ABG 0.8 mEq/l (+/-2.0); Fractional Inspired Oxygen 28 %; HCO3 ABG 25.2 mEq/l (22.0-26.0); Oxygen Content ABG 18.8 %vol (16.0-22.0); Oxygen Saturation ABG 95.3 % (95.0-100.0); Oxyhemoglobin 94.6 % THb (90.0-100.0); PCO2 ABG 39.4 mmHg (35.0-45.0); PO2 ABG 74.6 mmHg (80.0-100.0); PO2 FiO2 Ratio Arterial Blood 2.66 %; Total Hemoglobin 14.1 g/dL (12.0-18.0); pH ABG 7.423 (7.350-7.450)
[2024-08-30 14:37] LABS: Device NASAL CANNULA; Modified Allen's Test Pass; Site Drawn LEFT RADIAL
[2024-08-30] MEDS: IPRATROPIUM 0.5 MG/ALBUTEROL SULFATE 2.5 MG AMPUL.NEB 3 ML 6 ML INHALATION (14:39)
[2024-08-30] MEDS: DOXYCYCLINE 100 MG/NS 100 ML 100 MG/100 ML BAG IVPB (15:01)
[2024-08-30 15:04] LABS: Troponin I < 0.012 ng/mL (0.000-0.034)
[2024-08-30 15:17] LABS: Add Urine Microscopic? YES; Appearance Urine Cloudy (Clear); Bilirubin Urine Negative (Negative); Blood Urine 3+ (Negative); Color Urine Yellow (Yellow); Glucose Urine UA Negative (Negative); Ketones Urine Negative (Negative); Leukocyte Esterase Ur 3+ LEU/UL (Negative); Nitrate Urine Negative (Negative); Protein Urine 2+ mg/dL (Negative); Specific Grav Ur 1.008 (1.001-1.035); Urobilinogen Urine 0.2 mg/dL (<2.0); pH Urine 5.5 (5.0-9.0)
[2024-08-30 15:19] LABS: Influenza A QL RT-PCR Negative (Negative); Influenza B QL RT-PCR Negative (Negative); RSV RNA, RT-PCR Negative (Negative); SARS-CoV-2 RNA PCR Negative (Negative)
[2024-08-30 15:32] LABS: Bacteria Urine 3+ /hpf
[2024-08-30 15:33] LABS: RBC Urine >100 /hpf (0-2); WBC Urine >100 /hpf (0-3)
[2024-08-30 15:34] LABS: Squamous Epithelial Cell Urine Rare /hpf (Few)
[2024-08-30 15:36] LABS: Budding Yeast Urine Present /hpf; Non Pathogenic Casts Not Present
[2024-08-30 15:54] LABS: MRSA (PCR) NOT DETECTED (NOT DETECTE)
[2024-08-30] MEDS: VANCOMYCIN 2,000 MG/NS 500 ML 2,000 MG/500 ML BAG 250 MG IVPB (16:09)
--- NOTE | 2024-08-30 16:13 | ED.GENADULT ---
HPI - General Adult General Chief complaint: Shortness of Breath/Dyspnea Stated complaint: dyspnea Time Seen by Provider: 08/30/24 13:11 History of Present Illness HPI narrative: This is an 83-year-old female with history of chronic respiratory failure, recurrent aspiration pneumonia, CHF, COPD on 2 L home oxygen presenting for respiratory distress. She is recently discharged from hospital after an admission for multifactorial respiratory failure. She had been doing well until earlier today where she has developed shortness of breath. She denies fevers chest pain abdominal pain or urinary symptoms. She has been compliant with medications. Patient is DNR DNI. Family is not ready for comfort measures at this time. Related Data Home Medications ?Medication ?Instructions ?Recorded ?Confirmed ?Last Taken ?Type cranberry extract 425 mg capsule 425 mg PO DAILY 03/11/22 08/19/24 08/18/24 History dorzolamide 2 % eye drops 2 drp EACH EYE TID 03/11/22 08/19/24 08/18/24 History levothyroxine 75 mcg tablet 75 mcg PO DAILY 03/11/22 08/19/24 08/18/24 History nitroglycerin 0.4 mg sublingual 0.4 mg sublingual PRN PRN Chest 03/11/22 08/19/24 12/09/22 19:00 History tablet Pain rosuvastatin 10 mg tablet 10 mg PO HS 03/11/22 08/19/24 08/18/24 History arginine-vitamin C-vitamin E oral 1 g PO BID 10/28/22 08/19/24 08/18/24 History 4.5 gram-156 mg/9.2 gram powder pkt (Arginaid) escitalopram oxalate 10 mg tablet 10 mg PO QHS 10/28/22 08/19/24 08/18/24 History acetaminophen 500 mg capsule 1,000 mg PO Q6H PRN pain 11/03/22 08/19/24 08/04/24 History bromfenac 0.09 % eye drops 1 drp RIGHT EYE HS 11/03/22 08/19/24 08/18/24 History Saccharomyces boulardii 250 mg 250 mg PO BID 05/11/23 08/19/24 08/18/24 History capsule (Florastor) acetic acid 0.25 % irrigation 30 ml irrigation EVERY OTHER DAY 05/11/23 08/19/24 08/19/24 History solution hyoscyamine sulfate 0.125 mg tablet 0.125 mg PO BID PRN cramping 05/11/23 08/19/24 Unknown History nystatin 100,000 unit/gram topical 1 applic topical BID 05/11/23 08/19/24 08/18/24 History cream ciclopirox 0.77 % topical gel 1 applic topical HS 11/13/23 08/19/24 05/18/24 History pantoprazole 40 mg tablet,delayed 40 mg PO DAILY 11/13/23 08/19/24 08/18/24 History release albuterol sulfate 90 mcg/actuation 2 puff inhalation PRN asthma 05/19/24 08/19/24 Unknown History aerosol inhaler ferrous sulfate 325 mg (65 mg 325 mg PO BID 05/19/24 08/19/24 08/18/24 History iron) tablet (Kassie-Time) insulin lispro 100 unit/mL 1 sliding scale dose subcut TID 05/19/24 08/19/24 08/18/24 History subcutaneous pen (Humalog KwikPen (U-100) Insulin) triamcinolone acetonide 0.1 % 1 applic topical BID PRN rash 05/19/24 08/19/24 03/08/24 History topical cream ketoconazole 2 % topical cream 1 applic topical BID 05/20/24 08/19/24 Unknown History levothyroxine 150 mcg tablet 150 mcg PO .friday05/20/24 08/19/24 08/15/24 History ipratropium 0.5 mg-albuterol 3 mg 3 ml inhalation TID 06/03/24 08/19/24 08/18/24 History (2.5 mg base)/3 mL nebulization soln silver sulfadiazine 1 % topical 1 applic topical DAILY 06/03/24 08/19/24 08/18/24 History cream Allergies Allergy/AdvReac Type Severity Reaction Status Date / Time black pepper Allergy Unknown Verified 08/30/24 14:28 diltiazem Allergy Unknown Verified 08/30/24 14:28 donepezil Allergy Unknown Verified 08/30/24 14:28 fluticasone Allergy Unknown Verified 08/30/24 14:28 metformin Allergy Unknown Verified 08/30/24 14:28 [facility] Past Medical History Medical History Chronic anticoagulation Paroxysmal atrial fibrillation Obstructive sleep apnea Noncompliant with CPAP. Transient ischemic attack Gastroesophageal reflux disease Familial spastic paraplegia Glaucoma History of pulmonary embolism Multiple sclerosis Suprapubic catheter in place. 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 History of suprapubic catheter History of hysterectomy Family History Family History Father Spastic paralysis Mother Breast cancer Social History Social History Social History: Surrogate medical decision maker: Ange Reyes or Nancy John, hank. Code status: Full code. Smoking status: Never smoker Second hand tobacco smoke exposure: No Alcohol intake: never Substance use: never Substance use type: does not use Do You Feel Safe in your Home?: Yes Lack of Transportation: No Lack of Food: Never True Current Housing: I Have Housing Concerned About Future Housing: No Difficulty Paying Gas/Electric Bills: No Difficulty Paying for Meds: No Currently Unemployed: No Education: High School Diploma/GED Difficulty w/ Childcare or Family Care: No Living arrangements: [facility] Additional living arrangements comments: [facility]. Has 3 daughters. Additional occupation/education comments: [employer]. Spiritual care concerns: No Exam Narrative: APPEARANCE: Patient appears uncomfortable, Head: atraumatic. EYES: EOMI, NOSE: Atraumatic NECK: Trachea midline RESPIRATORY: Labored breathing, wheezing in all dave, rhonchi in the bases, CARDIOVASCULAR: RRR, no peripheral edema ABDOMINAL: Soft nontender MUSCULOSKELETAl: No obvious deformities NEURO: Alert. Moving 4/4 extremities SKIN:: Warm, dry. Normal color PSYCHIATRIC: Normal affect Course Vital Signs Vital signs: Vital Signs Temperature 98.4 F 08/30/24 12:31 Pulse Rate 79 08/30/24 12:31 Respiratory Rate 25 H 08/30/24 12:31 Blood Pressure 139/57 L 08/30/24 12:31 Pulse Oximetry 95 08/30/24 12:31 Oxygen Delivery Nasal Cannula 08/30/24 12:31 Oxygen Flow Rate 2 08/30/24 12:31 Temperature 98.4 F 08/30/24 12:31 Pulse Rate 96 08/30/24 18:16 Respiratory Rate 22 H 08/30/24 18:16 Blood Pressure 117/49 L 08/30/24 18:16 Pulse Oximetry 97 08/30/24 18:16 Oxygen Delivery BiPAP 08/30/24 16:14 Oxygen Flow Rate 2 08/30/24 14:39 Fraction of Inspired Oxygen 28 08/30/24 16:07 Medical Decision Making MDM Narrative Medical decision making narrative: -Course: 83-year-old female history of multifactorial respiratory failure presenting respiratory failure. Initially given breathing treatments, started on antibiotics to cover aspiration pneumonia. Patient received 1 L fluid however her respiratory status started to decline. Fluids were held and she was given Lasix. Patient was placed on BiPAP. Placed on continuous nebs. Patient will be admitted the hospital for further management of her respiratory failure. Goals of care were discussed with family including patient's prognosis. She is DNR/DNI this time. Family is not ready for comfort measures. -DDX includes but is not limited to: Pneumonia, CHF, COPD, Vital Signs Vital Signs: Vital Signs Temperature 98.4 F 08/30/24 12:31 Pulse Rate 79 08/30/24 12:31 Respiratory Rate 25 H 08/30/24 12:31 Blood Pressure 139/57 L 08/30/24 12:31 Pulse Oximetry 95 08/30/24 12:31 Oxygen Delivery Nasal Cannula 08/30/24 12:31 Oxygen Flow Rate 2 08/30/24 12:31 Temperature 98.4 F 08/30/24 12:31 Pulse Rate 96 08/30/24 18:16 Respiratory Rate 22 H 08/30/24 18:16 Blood Pressure 117/49 L 08/30/24 18:16 Pulse Oximetry 97 08/30/24 18:16 Oxygen Delivery BiPAP 08/30/24 16:14 Oxygen Flow Rate 2 08/30/24 14:39 Fraction of Inspired Oxygen 28 08/30/24 16:07 Lab Data 08/30/24 12:48 08/30/24 12:48 Labs: Lab Results 08/30/24 08/30/24 08/30/24 Range/Units 12:48 14:31 14:32 WBC 17.7 H (4.5-10.0) K/mm3 RBC 4.99 (4.2-5.4) M/mm3 Hgb 13.0 (12.0-15.0) g/dL Hct 41.3 (37.0-47.0) % MCV 82.8 (80-100) fl MCH 26.1 (26-34) pg MCHC 31.5 L (32-36) g/dl RDW 14.1 (11.5-14.5) % Plt Count 329 (150-375) k/mm3 MPV 11.1 H (7.4-10.4) fl Immature Gran % (Auto) 0.6 H (0-0.5) % Neut % (Auto) 62.3 (45.5-73.1) % Lymph % (Auto) 16.6 L (18.3-44.2) % [place] % (Auto) 16.3 H (2.6-8.5) % Eos % (Auto) 3.7 (0-4.4) % Baso % (Auto) 0.5 (0.2-1.2) % Lymph # (Auto) 2.94 (0.9-3.2) K/mm3 [place] # (Auto) 2.9 H (0.1-0.6) K/mm3 Eos # (Auto) 0.7 H (0-0.3) K/mm3 Baso # (Auto) 0.1 (0.0-0.1) K/mm3 Abs Immat Gran (auto) 0.10 H (0.00-0.031) K/mm3 Absolute Neuts (auto) 11.0 H (1.3-6.7) K/mm3 Absolute Nucleated RBC 0.000 (0.0-0.012) K/mm3 Nucleated RBC % 0.0 (0.0-0.2) % Sodium 138 (137-145) mmol/L Potassium 3.4 (3.4-5.0) mmol/L Chloride 104 (98-107) mmol/L Carbon Dioxide 27 (22-30) mmol/L Anion Gap 7 (4-12) mmol/L BUN 18 H (7-17) mg/dL Creatinine 0.68 L (0.7-1.0) mg/dL Estim Creat Clear Calc 57 ml/min Estimated GFR > 60 (59 - ) Glucose 123 H (65-110) mg/dL Calcium 9.6 (8.4-10.2) mg/dL Total Bilirubin 0.3 (0.2-1.3) mg/dL AST 23 (14-36) U/L ALT 16 (6-35) U/L Alkaline Phosphatase 85 (38-126) U/L Troponin I < 0.012 (0.000-0.034) ng/mL NT-Pro-B Natriuret Pep 1040 H (19.9-100) pg/mL Total Protein 7.0 (6.3-8.2) g/dL Albumin 3.9 (3.5-5.1) g/dL Urine Color (Yellow) Urine Appearance (Clear) Urine pH (5.0-9.0) Ur Specific [place] (1.001-1.035) Urine Protein (Negative) mg/dL Urine Glucose (UA) (Negative) mg/dL Urine Ketones (Negative) mg/dL Ur Blood (Man) (Negative) Urine Nitrate (Negative) Urine Bilirubin (Negative) Urine Urobilinogen (<2.0) mg/dL Leukocyte Esterase Rfl (Negative) ANABELA/UL Urine RBC (0-2) /hpf Urine WBC (0-3) /hpf Ur Squamous Epith Cells (Few) /hpf Urine Bacteria /hpf Urine Casts Urine Yeast (Budding) (None) /hpf Nasal MRSA (PCR) (NOT DETECTE) Influenza A (RT-PCR) Negative (Negative) Influenza B (RT-PCR) Negative (Negative) RSV (RT-PCR) Negative (Negative) SARS-CoV-2 RNA (RT-PCR) Negative (Negative) 08/30/24 08/30/24 Range/Units 14:33 16:56 WBC (4.5-10.0) K/mm3 RBC (4.2-5.4) M/mm3 Hgb (12.0-15.0) g/dL Hct (37.0-47.0) % MCV (80-100) fl MCH (26-34) pg MCHC (32-36) g/dl RDW (11.5-14.5) % Plt Count (150-375) k/mm3 MPV (7.4-10.4) fl Immature Gran % (Auto) (0-0.5) % Neut % (Auto) (45.5-73.1) % Lymph % (Auto) (18.3-44.2) % [place] % (Auto) (2.6-8.5) % Eos % (Auto) (0-4.4) % Baso % (Auto) (0.2-1.2) % Lymph # (Auto) (0.9-3.2) K/mm3 [place] # (Auto) (0.1-0.6) K/mm3 Eos # (Auto) (0-0.3) K/mm3 Baso # (Auto) (0.0-0.1) K/mm3 Abs Immat Gran (auto) (0.00-0.031) K/mm3 Absolute Neuts (auto) (1.3-6.7) K/mm3 Absolute Nucleated RBC (0.0-0.012) K/mm3 Nucleated RBC % (0.0-0.2) % Sodium (137-145) mmol/L Potassium (3.4-5.0) mmol/L Chloride (98-107) mmol/L Carbon Dioxide (22-30) mmol/L Anion Gap (4-12) mmol/L BUN (7-17) mg/dL Creatinine (0.7-1.0) mg/dL Estim Creat Clear Calc ml/min Estimated GFR (59 - ) Glucose (65-110) mg/dL Calcium (8.4-10.2) mg/dL Total Bilirubin (0.2-1.3) mg/dL AST (14-36) U/L ALT (6-35) U/L Alkaline Phosphatase (38-126) U/L Troponin I < 0.012 (0.000-0.034) ng/mL NT-Pro-B Natriuret Pep (19.9-100) pg/mL Total Protein (6.3-8.2) g/dL Albumin (3.5-5.1) g/dL Urine Color Yellow (Yellow) Urine Appearance Cloudy H (Clear) Urine pH 5.5 (5.0-9.0) Ur Specific [place] 1.008 (1.001-1.035) Urine Protein 2+ H (Negative) mg/dL Urine Glucose (UA) Negative (Negative) mg/dL Urine Ketones Negative (Negative) mg/dL Ur Blood (Man) 3+ H (Negative) Urine Nitrate Negative (Negative) Urine Bilirubin Negative (Negative) Urine Urobilinogen 0.2 (<2.0) mg/dL Leukocyte Esterase Rfl 3+ H (Negative) ANABELA/UL Urine RBC >100 H (0-2) /hpf Urine WBC >100 (0-3) /hpf Ur Squamous Epith Cells Rare (Few) /hpf Urine Bacteria 3+ /hpf Urine Casts Not present Urine Yeast (Budding) Present H (None) /hpf Nasal MRSA (PCR) Not detected (NOT DETECTE) Influenza A (RT-PCR) (Negative) Influenza B (RT-PCR) (Negative) RSV (RT-PCR) (Negative) SARS-CoV-2 RNA (RT-PCR) (Negative) ABG Data ABG results: 08/30/24 14:30 Puncture Site Left radial ABG pH 7.423 ABG pCO2 39.4 ABG pO2 74.6 L ABG PO2/FiO2 Ratio 2.66 ABG HCO3 25.2 ABG O2 Saturation 95.3 ABG O2 Content 18.8 ABG Base Excess 0.8 A-a Gradient 78.6 Oxyhemoglobin 94.6 Total Hemoglobin 14.1 O2 Delivery Device Nasal cannula O2 Liters/Min 2.0 FiO2 28 Discharge Plan Discharge Clinical Impression: Respiratory failure, COPD exacerbation, CHF (congestive heart failure), Aspiration pneumonia Patient Disposition: Still a Patient Condition: Guarded Prognosis Patient Language: French Prescriptions: No Action escitalopram oxalate 10 mg tablet 10 mg PO QHS Arginaid 4.5 gram-156 mg/9.2 gram Powder In Packet 1 g PO BID Rx Instructions: 1 packet bid pantoprazole 40 mg tablet,delayed release (DR/EC) 40 mg PO DAILY ciclopirox 0.77 % gel 1 applic TOPICAL HS Rx Instructions: Apply to affected fingernails albuterol sulfate 90 mcg/actuation HFA aerosol inhaler 2 puff INHALATION PRN ferrous sulfate [Kassie-Time] 325 mg (65 mg iron) tablet 325 mg PO BID insulin lispro [Humalog KwikPen Insulin] 100 unit/mL insulin pen 1 sliding scale dose SUBCUT TID triamcinolone acetonide 0.1 % cream 1 applic TOPICAL BID PRN (Reason: rash) levothyroxine 150 mcg tablet 150 mcg PO .friday ketoconazole 2 % cream 1 applic TOPICAL BID loratadine 10 mg Tablet 10 mg PO QHS Qty: 20 0RF ipratropium-albuterol 0.5 mg-3 mg(2.5 mg base)/3 mL solution for nebulization 3 ml INHALATION TID silver sulfadiazine 1 % cream 1 applic TOPICAL DAILY Rx Instructions: apply to coccyx cranberry extract 425 mg Capsule 425 mg PO DAILY Rx Instructions: administer with a meal dorzolamide 2 % drops 2 drp EACH EYE TID Rx Instructions: daily, noon and HS rosuvastatin 10 mg tablet 10 mg PO HS nitroglycerin 0.4 mg tablet, sublingual 0.4 mg sublingual PRN PRN (Reason: Chest Pain) Rx Instructions: 1 tab po PRN q 5mins x 3 doses levothyroxine 75 mcg tablet 75 mcg PO DAILY Rx Instructions: takes Friday-Friday bromfenac 0.09 % drops 1 drp RIGHT EYE HS acetaminophen 500 mg capsule 1,000 mg PO Q6H PRN (Reason: pain) melatonin 5 mg Tablet 5 mg PO HS Qty: 30 0RF hyoscyamine sulfate 0.125 mg Tablet 0.125 mg PO BID PRN (Reason: cramping) nystatin 100,000 unit/gram cream 1 applic TOPICAL BID Rx Instructions: mix with zinc oxide cream and apply to groin and brittany area BID and PRN acetic acid 0.25 % Solution 30 ml irrigation EVERY OTHER DAY Patient Comments: 30 ml irrigation every shift to flush suprapubic catheter every day Rx Instructions: Flush suprapubic catheter Fri, Fri, Friday Saccharomyces boulardii [Florastor] 250 mg Capsule 250 mg PO BID insulin aspart U-100 [Novolog U-100 Insulin aspart] 100 unit/mL Solution 5 unit subcut TIDWM Qty: 10 0RF furosemide 40 mg Tablet 40 mg PO BID Qty: 60 0RF insulin glargine [Lantus U-100 Insulin] 100 unit/mL Solution 15 unit subcut Q12H Qty: 10 0RF flecainide 50 mg tablet 50 mg PO Q12H Qty: 60 0RF Eliquis 5 mg tablet 5 mg PO Q12H Qty: 60 0RF Follow-up/Referrals: Daquan,Julian Greer DO [Primary Care Provider] -
[2024-08-30] MEDS: IPRATROPIUM 0.5 MG/ALBUTEROL SULFATE 2.5 MG AMPUL.NEB 3 ML 12 ML INHALATION (16:14)
[2024-08-30 16:44] LABS: NT Pro B Type Natriuretic Pept 1040 pg/mL (19.9-100)
[2024-08-30] MEDS: FUROSEMIDE INJ 40 MG/4 ML VIAL IV PUSH (16:48)
[2024-08-30 17:23] LABS: Troponin I < 0.012 ng/mL (0.000-0.034)
--- NOTE | 2024-08-30 20:06 | PM.IMHP ---
H&P: HPI History of Present Illness Date/Time: 08/30/24 20:06 Chief Complaint: Respiratory failure, shortness of breath Narrative: This is an 83 yo female with paroxysmal AFib, CATY, MS requiring suprapubic cath, CHF, chronic hypoxic respiratory failure on 2 LPM O2, COPD, functional quadriplegic, ileostomy and DM admitted for acute on chronic hypoxic respiratory failure due to likely recurrent aspiration. Patient had just been discharged from this facility on 08/28/24 [facility] admission for pneumonia and hypoxia. Per prior admission, it is felt that patient is having intermittent aspiration. In ER today patient required BiPAP due to work of breathing and hypoxia. Patient is confused. Family at bedside at time of exam. Patient known to pull off medical equipment/lines. Patient is DNR/DNI status but family not ready for comfort measures. One of her daughter's is on a cruise right now. Workup in the ER shows WBC elevated at 17.7. ABG with mild hypoxemia on 2 LPM--pO2 was 74.6. Chemistry panel generally unremarkable. Pro-BNP 1040 which is lower than on presentation of last admission. Urinalysis appears likely urine infection with 3+ urine bacteria, >100 RBCs, >100 WBCs, 3+ leukocyte esterase. Prior urine cultures reviewed and she has had Pseudomonas aeruginosa, Proteus mirabilis and Klebsiella pneumoniae in prior cultures, all sensitive to cefepime or Zosyn. CXR shows LLL consolidation and bilateral upper lobe opacities (previously only RUL.) ER initiated IV vancomycin and Zosyn. On admit we changed Zosyn to cefepime and Flagyl to preserve renal function and continued vancomycin for now. MRSA nasal swab was negative. Review of Systems Review of Systems: ROS unobtainable: Yes unobtainable due to mental status (chronic confusion) FOR[facility]LY [facility] Past Medical History Medical History Chronic anticoagulation Paroxysmal atrial fibrillation Obstructive sleep apnea Noncompliant with CPAP. Transient ischemic attack Gastroesophageal reflux disease Familial spastic paraplegia Glaucoma History of pulmonary embolism Multiple sclerosis Suprapubic catheter in place. 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 History of suprapubic catheter History of hysterectomy Family History Family History Father Spastic paralysis Mother Breast cancer Social History Social History Social History: Surrogate medical decision maker: Ange Reyes or Nancyshivani John, daughters. Code status: Full code. Smoking status: Never smoker Second hand tobacco smoke exposure: No Alcohol intake: never Substance use: never Substance use type: does not use Do You Feel Safe in your Home?: Yes Lack of Transportation: No Lack of Food: Never True Current Housing: I Have Housing Concerned About Future Housing: No Difficulty Paying Gas/Electric Bills: No Difficulty Paying for Meds: No Currently Unemployed: No Education: High School Diploma/GED Difficulty w/ Childcare or Family Care: No Living arrangements: penitentiary Additional living arrangements comments: [facility]. Has 3 daughters. Additional occupation/education comments: [employer]. Spiritual care concerns: No Meds Home Medications and Allergies Home Medications ?Medication ?Instructions ?Recorded ?Confirmed ?Type cranberry extract 425 mg capsule 425 mg PO DAILY 03/11/22 08/30/24 History dorzolamide 2 % eye drops 2 drp EACH EYE TID 03/11/22 08/30/24 History levothyroxine 75 mcg tablet 75 mcg PO DAILY 03/11/22 08/30/24 History nitroglycerin 0.4 mg sublingual 0.4 mg sublingual PRN PRN Chest 03/11/22 08/30/24 History tablet Pain rosuvastatin 10 mg tablet 10 mg PO HS 03/11/22 08/30/24 History arginine-vitamin C-vitamin E oral 1 g PO BID 10/28/22 08/30/24 History 4.5 gram-156 mg/9.2 gram powder pkt (Arginaid) acetaminophen 500 mg capsule 1,000 mg PO Q6H PRN pain 11/03/22 08/30/24 History bromfenac 0.09 % eye drops 1 drp RIGHT EYE HS 11/03/22 08/30/24 History melatonin 5 mg tablet 5 mg PO HS #30 tabs 11/06/22 08/30/24 Rx Saccharomyces boulardii 250 mg 250 mg PO BID 05/11/23 08/30/24 History capsule (Florastor) acetic acid 0.25 % irrigation 30 ml irrigation EVERY OTHER DAY 05/11/23 08/30/24 History solution hyoscyamine sulfate 0.125 mg tablet 0.125 mg PO BID PRN cramping 05/11/23 08/30/24 History nystatin 100,000 unit/gram topical 1 applic topical BID 05/11/23 08/30/24 History cream pantoprazole 40 mg tablet,delayed 40 mg PO DAILY 11/13/23 08/30/24 History release albuterol sulfate 90 mcg/actuation 2 puff inhalation PRN asthma 05/19/24 08/30/24 History aerosol inhaler ferrous sulfate 325 mg (65 mg 325 mg PO BID 05/19/24 08/30/24 History iron) tablet (Kassie-Time) insulin lispro 100 unit/mL 1 sliding scale dose subcut TID 05/19/24 08/30/24 History subcutaneous pen (Humalog KwikPen (U-100) Insulin) triamcinolone acetonide 0.1 % 1 applic topical BID PRN rash 05/19/24 08/30/24 History topical cream ketoconazole 2 % topical cream 1 applic topical BID 05/20/24 08/30/24 History loratadine 10 mg tablet 10 mg PO QHS #20 tabs 05/28/24 08/30/24 Rx ipratropium 0.5 mg-albuterol 3 mg 3 ml inhalation TID 06/03/24 08/30/24 History (2.5 mg base)/3 mL nebulization soln silver sulfadiazine 1 % topical 1 applic topical DAILY 06/03/24 08/30/24 History cream apixaban 5 mg tablet (Eliquis) 5 mg PO Q12H #60 tabs 08/28/24 08/30/24 Rx flecainide 50 mg tablet 50 mg PO Q12H #60 tabs 08/28/24 08/30/24 Rx furosemide 40 mg tablet 40 mg PO BID #60 tabs 08/28/24 08/30/24 Rx escitalopram oxalate 10 mg tablet 10 mg PO DAILY 08/30/24 08/30/24 History (Lexapro) insulin glargine 100 unit/mL 20 unit subcut Q12H 08/30/24 08/30/24 History subcutaneous solution (Lantus U-100 Insulin) Allergies Allergy/AdvReac Type Severity Reaction Status Date / Time black pepper Allergy Unknown Verified 08/30/24 21:38 diltiazem Allergy Unknown Verified 08/30/24 21:38 donepezil Allergy Unknown Verified 08/30/24 21:38 fluticasone Allergy Unknown Verified 08/30/24 21:38 metformin Allergy Unknown Verified 08/30/24 21:38 Vital Signs Vital Signs - 24 hr 08/30/24 12:31 08/30/24 12:48 08/30/24 14:24 Temperature 36.9 C Pulse Rate 79 74 80 Respiratory Rate 25 H 21 H Blood Pressure 139/57 L 144/93 H Pulse Oximetry 95 97 Oxygen Delivery Nasal Cannula Oxygen Flow Rate 2 Fraction of Inspired Oxygen 08/30/24 14:26 08/30/24 14:39 08/30/24 14:39 Temperature Pulse Rate 79 Respiratory Rate 20 Blood Pressure Pulse Oximetry 97 95 Oxygen Delivery Nasal Cannula Nasal Cannula Oxygen Flow Rate 2 2 Fraction of Inspired Oxygen 28 08/30/24 14:49 08/30/24 15:31 08/30/24 15:50 Temperature Pulse Rate 72 80 79 Respiratory Rate 18 24 H 20 Blood Pressure 149/72 H Pulse Oximetry 98 98 Oxygen Delivery BiPAP Oxygen Flow Rate Fraction of Inspired Oxygen 08/30/24 16:01 08/30/24 16:07 08/30/24 16:14 Temperature Pulse Rate 80 78 Respiratory Rate 27 H 25 H Blood Pressure 140/56 L Pulse Oximetry 98 97 98 Oxygen Delivery BiPAP BiPAP Oxygen Flow Rate Fraction of Inspired Oxygen 28 08/30/24 16:14 08/30/24 16:16 08/30/24 16:26 Temperature Pulse Rate 78 78 85 Respiratory Rate 25 H 22 H 20 Blood Pressure 144/61 H 128/57 L Pulse Oximetry 98 98 Oxygen Delivery Oxygen Flow Rate Fraction of Inspired Oxygen 08/30/24 16:31 08/30/24 16:46 08/30/24 16:51 Temperature Pulse Rate 82 87 87 Respiratory Rate 23 H 23 H 23 H Blood Pressure 137/58 L 128/57 L Pulse Oximetry 100 97 Oxygen Delivery Oxygen Flow Rate Fraction of Inspired Oxygen 08/30/24 17:31 08/30/24 18:16 08/30/24 19:01 Temperature Pulse Rate 96 96 90 Respiratory Rate 23 H 22 H 23 H Blood Pressure 116/49 L 117/49 L 97/66 L Pulse Oximetry 96 97 96 Oxygen Delivery Oxygen Flow Rate Fraction of Inspired Oxygen 08/30/24 19:23 Temperature Pulse Rate 88 Respiratory Rate 18 Blood Pressure 97/66 L Pulse Oximetry 97 Oxygen Delivery Oxygen Flow Rate Fraction of Inspired Oxygen Exam Narrative: APPEARANCE: Patient appears uncomfortable, fidgeting with BiPAP and other equipment Head: atraumatic. EYES: EOMI, NOSE: Atraumatic NECK: Trachea midline RESPIRATORY: Diffuse wheezes/course sounds present, diminished in left base CARDIOVASCULAR: RRR, no peripheral edema ABDOMINAL: Soft nontender, ileostomy present with liquid stool output MUSCULOSKELETAl: No obvious deformities NEURO: Alert. Chronically confused. Moving 4/4 extremities (lowers much weaker than uppers) SKIN:: Warm, dry. Normal color H&P: Results Labs Labs: Short CBC 08/30/24 Range/Units 12:48 WBC 17.7 H (4.5-10.0) K/mm3 Hgb 13.0 (12.0-15.0) g/dL Hct 41.3 (37.0-47.0) % Plt Count 329 (150-375) k/mm3 BMP 08/30/24 12:48 Sodium 138 Potassium 3.4 Chloride 104 Carbon Dioxide 27 BUN 18 H Creatinine 0.68 L Glucose 123 H Calcium 9.6 Cardiac Enzymes 08/30/24 08/30/24 Range/Units 14:32 16:56 Troponin I < 0.012 < 0.012 (0.000-0.034) ng/mL Liver Function 08/30/24 Range/Units 12:48 Total Bilirubin 0.3 (0.2-1.3) mg/dL AST 23 (14-36) U/L ALT 16 (6-35) U/L Alkaline Phosphatase 85 (38-126) U/L Albumin 3.9 (3.5-5.1) g/dL Urine 08/30/24 Range/Units 14:33 Urine Color Yellow (Yellow) Urine Appearance Cloudy H (Clear) Urine pH 5.5 (5.0-9.0) Ur Specific [place] 1.008 (1.001-1.035) Urine Protein 2+ H (Negative) mg/dL Urine Glucose (UA) Negative (Negative) mg/dL ABG ABG results: PH 7.423, pCO2 39.4, PO2 74.6 on 2 L, HC03 25.2 Attestation: I personally reviewed and interpreted this ABG as follows: Interpretation: Balanced ABG with mild hypoxemia on baseline 2 liters/minute Pulse Oximetry SpO2 results: 94-98% on BiPAP with FiO2 28% Attestation: I personally reviewed and interpreted this pulse oximetry as follows: Interpretation: Stable on 28% FiO2. ECG Attestation: I personally reviewed and interpreted this ECG as follows: ECG completion date: 08/30/24 ECG completion time: 12:45 Prior ECG tracings: available for review Interpretation: Sinus rhythm rate of 76 TX interval 127 QRS duration 121 QTC 331 QRS axis -54 left axis deviation, T-wave flattening in multiple leads, no STEMI Imaging Chest x-ray: Radiologist's impression: CHEST RADIOGRAPH, PA AND LATERAL CLINICAL HISTORY: sob AND WEAKNESS NOTED . COMPARISON: 08/27/2024 TECHNIQUE: PA and lateral views of the chest. FINDINGS Redemonstration of left basilar consolidation. Patchy opacification of the periphery of the bilateral upper lungs, right greater than left. The remainder of the lungs are clear. Calcified lymph nodes within the mediastinum suggesting prior granulomatous disease. Biapical scarring is redemonstrated. IMPRESSION: Left basilar consolidation with patchy opacification of the periphery of the bilateral upper lung dave, right greater than left. Reviewed, dictated and finalized at location A. Assessment and Plan Assessment and plan (1) Respiratory failure: Qualifiers: Chronicity: acute on chronic Respiratory failure complication: hypoxia Qualified Code(s): J96.21 - Acute and chronic respiratory failure with hypoxia Code(s): J96.90 - Respiratory failure, unspecified, unspecified whether with hypoxia or hypercapnia Status: Acute Assessment and Plan: -Acute on chronic hypoxemic respiratory failure with history of hypercapnic respiratory failure admitted on BiPAP d/t work of breathing increased -Wears 2 LPM at baseline -CXR and recent hospitalization suggest chronic/recurrent aspiration as cause of pneumonia, hypoxia and shortness of breath -Admit to IMU on Continuous BiPAP -Prior history of CHF, continue furosemide -Wheezing noted, scheduled Duonebs ordered (2) Aspiration pneumonia: Code(s): J69.0 - Pneumonitis due to inhalation of food and vomit Status: Acute Assessment and Plan: -Change antibiotics to Cefepime, Flagyl, vancomycin instead of Zosyn and vancomycin. -MRSA nares negative -Patient recently admitted to hospital and [facility] for past few [facility] -Barium swallow study on 08/19/24 showed laryngeal penetration without aspiration, unable to find ST documentation -Ordered soft/bite sized diet (level 6) with mildly thickened liquids (level 2) -Consult speech therapy again for further recommendations (3) UTI (urinary tract infection): Qualifiers: Hematuria presence: with hematuria Urinary tract infection type: acute cystitis Qualified Code(s): N30.01 - Acute cystitis with hematuria Code(s): N39.0 - Urinary tract infection, site not specified Status: Acute Assessment and Plan: -Indwelling suprapubic catheter in place, changed by Urology on 08/26/24 during last hospitalization -Urine culture and blood cultures ordered -broad spectrum abx for now, cefepime, vanc, Flagyl -prior cultures positive including Pseudomonas aeruginosa, Proteus mirabilis and Klebsiella pneumoniae (4) Type 2 diabetes mellitus with diabetic polyneuropathy: Code(s): E11.42 - Type 2 diabetes mellitus with diabetic polyneuropathy Status: Acute Assessment and Plan: -Lantus 20 units Q12HR and sliding scale insulin -hypoglycemia protocol in place -A1c 7.2 -Diet: carb consistent with heart healthy, soft and bite sized with mildly thickened liquids (5) Hypertension: Code(s): I10 - Essential (primary) hypertension Status: Acute Assessment and Plan: -Blood pressure reviewed and stable -Continue home medications (6) Chronic anticoagulation: Code(s): Z79.01 - watermaster (current) use of anticoagulants Status: Acute Assessment and Plan: -On Eliquis 5 mg BID due to history of paroxysmal atrial fibrillation Plan -Unable to find Speech Therapy documentation from last admission, consult ST again -Recurrent aspiration most likely cause of return of shortness of breath and labored breathing -IMU admit due to BiPAP for work of breathing, stable ABG -DNR/DNI, family not ready for comfort care yet -May consider need for GI consult for PEG tube??? -Ileostomy present with liquid stool output Quality VTE Prophylaxis VTE prophylaxis: pharmacologic ordered (Eliquis) Hospitalist MIPS Advance Care Plan I have confirmed that the patient's Advanced Care Plan is present, code status is documented, or surrogate decision maker is listed in patient medical record.: Yes Medication Reconciliation I have utilized all available resources to obtain, update and review the patients current medications (includes all prescriptions, OTC, herbals, cannabis, and nutritional supplements).: Yes
--- NOTE | 2024-08-30 20:30 | ADMGEN ---
This patient, Perla Leon, was admitted to IMU Room 231-01. Patient/family oriented to hospital policies and general routines including ID bracelet, bed and alarms, visiting hours, pain management, procedures, bathroom and other care routines, personal items, smoking policy, room service/diet, and visiting hours. Information on how to activate the Rapid Response Team has been discussed. Patient/Family are encouraged to report perceived risks to care and to ask questions if they do not understand what they are told or what they should do.
[2024-08-30 20:57] LABS: Glucose Point of Care 136 mg/dl (65-105)
[2024-08-30 21:15] LABS: Lactic Acid Reflex 1.1 mmol/L (0.7-2.0)
[2024-08-30 21:19] LABS: CRP < 0.5 mg/dL (<1.0)
[2024-08-30] MEDS: LORATADINE 10 MG TABLET PO (21:20)
[2024-08-30] MEDS: ROSUVASTATIN 10 MG TABLET PO (21:20)
[2024-08-30] MEDS: APIXABAN 5 MG TABLET PO (21:20)
[2024-08-30] MEDS: MELATONIN 5 MG TABLET PO (21:20)
[2024-08-30] MEDS: FLECAINIDE ACETATE 50 MG TABLET PO (21:20)
[2024-08-30 21:26] LABS: Erythrocyte Sedimentation Rate 27 mm/hr (0-20)
[2024-08-30] MEDS: CEFEPIME 2 GM/NS 50 ML 2 GM/50 ML BAG IVPB (21:27)
[2024-08-30 21:40] LABS: Procalcitonin 0.1 ng/mL
[2024-08-30] MEDS: metroNIDAZOLE 500 MG/ISO 100ML 500 MG/100 ML BAG 100 MG IVPB (21:53)
[2024-08-30] MEDS: INSULIN GLARGINE (*BKC) 100 UNITS/ML 15 UNITS SUB-Q (22:10)
[2024-08-30] MEDS: DORZOLAMIDE HCL 2% OPHTH DROPS 2 DROP EACH EYE (22:10)
[2024-08-30 22:12] LABS: Hemoglobin A1C 7.2 % (<5.7)
[2024-08-31] VITALS (24 sets, daily range): BP systolic 123–156; BP diastolic 43–66; PULSE 62–89; RESP 18–26; TEMP 36.4–37.2; O2SAT 92–98; BMI 27.8
[2024-08-31] MEDS: IPRATROPIUM 0.5 MG/ALBUTEROL SULFATE 2.5 MG AMPUL.NEB 3 ML INHALATION ×4 (02:20→20:34)
[2024-08-31 04:44] LABS: Basophils Absolute Auto 0.1 K/mm3 (0.0-0.1); Basophils Percent Auto 0.7 % (0.2-1.2); Eosinophils Absolute Auto 0.4 K/mm3 (0-0.3); Eosinophils Percent Auto 2.6 % (0-4.4); Hematocrit 37.2 % (37.0-47.0); Hemoglobin 11.5 g/dL (12.0-15.0); Immature Granulocyte Absolute 0.09 K/mm3 (0.00-0.031); Immature Granulocyte Percent A 0.7 % (0-0.5); Lymphocytes Absolute Auto 1.43 K/mm3 (0.9-3.2); Lymphocytes Percent Auto 10.4 % (18.3-44.2); Mean Corpuscular HGB Conc 30.9 g/dl (32-36); Mean Corpuscular Hemoglobin 26.3 pg (26-34); Mean Corpuscular Volume 85.1 fl (80-100); Mean Platelet Volume 11.6 fl (7.4-10.4); Monocytes Absolute Auto 2.2 K/mm3 (0.1-0.6); Neutrophils Absolute Auto 9.6 K/mm3 (1.3-6.7); Neutrophils Percent Auto 69.6 % (45.5-73.1); Platelet Count Result 270 k/mm3 (150-375); Red Blood Count 4.37 M/mm3 (4.2-5.4); Red Cell Distribution Width 14.3 % (11.5-14.5); White Blood Count 13.8 K/mm3 (4.5-10.0)
[2024-08-31 05:03] LABS: Alanine Aminotransferase 14 U/L (6-35); Albumin Level 3.4 g/dL (3.5-5.1); Alkaline Phosphatase 70 U/L (38-126); Anion Gap 9 mmol/L (4-12); Aspartate Amino Transferase 19 U/L (14-36); Bilirubin,Total 0.3 mg/dL (0.2-1.3); Blood Urea Nitrogen 12 mg/dL (7-17); Calcium 9.1 mg/dL (8.4-10.2); Carbon Dioxide 26 mmol/L (22-30); Chloride 106 mmol/L (98-107); Estimated CRCL calculation 51 ml/min; Estimated Glomerular Filt Rate > 60; Glucose 108 mg/dL (65-110); Magnesium 1.9 mg/dL (1.6-2.3); Potassium 2.9 mmol/L (3.4-5.0); Sodium 141 mmol/L (137-145)
[2024-08-31] MEDS: metroNIDAZOLE 500 MG/ISO 100ML 500 MG/100 ML BAG 100 MG IVPB ×3 (06:20→22:00)
[2024-08-31] MEDS: LEVOTHYROXINE SODIUM 75 MCG TABLET PO (06:52)
[2024-08-31 07:53] LABS: Glucose Point of Care 100 mg/dl (65-105)
--- NOTE | 2024-08-31 07:53 | PCSTNOTE ---
Attempted Bedside Swallow Eval (7:30) this am but pt was on high flow O2; per RN she did not do well when taken off last night so she will see how pt does today then let ST know if swallow eval can be done.
[2024-08-31] MEDS: MAGNESIUM SULF 1 GM/D5W 100 ML 1 GM/100 ML BAG IVPB (08:34)
[2024-08-31] MEDS: PANTOPRAZOLE 40 MG TABLET PO (08:36)
[2024-08-31] MEDS: ESCITALOPRAM OXALATE 10 MG TABLET PO (08:36)
[2024-08-31] MEDS: APIXABAN 5 MG TABLET PO ×2 (08:36→21:20)
[2024-08-31] MEDS: FUROSEMIDE 40 MG TABLET PO ×2 (08:36→16:39)
[2024-08-31] MEDS: CEFEPIME 2 GM/NS 50 ML 2 GM/50 ML BAG IVPB ×2 (08:36→21:20)
[2024-08-31] MEDS: SACCHAROMYCES BOULARDII 250 MG CAPSULE PO ×2 (08:36→16:39)
[2024-08-31] MEDS: FERROUS SULFATE 325 MG TABLET DR PO ×2 (08:37→16:39)
[2024-08-31] MEDS: FLECAINIDE ACETATE 50 MG TABLET PO ×2 (08:37→21:21)
[2024-08-31] MEDS: POTASSIUM CHLORIDE INJ 40 MEQ in SODIUM CHLORIDE 0.9% IV 500 ML 130 MEQ IVPB (09:32)
[2024-08-31 11:52] LABS: Glucose Point of Care 198 mg/dl (65-105)
[2024-08-31] MEDS: INSULIN GLARGINE (*BKC) 100 UNITS/ML 20 UNITS SUB-Q ×2 (11:54→21:21)
[2024-08-31 14:01] LABS: Alveolar/Arterial O2 Gradient 54.7 mmHg; Base Excess ABG 0.9 mEq/l (+/-2.0); Device BIPAP; Fractional Inspired Oxygen 28 %; HCO3 ABG 25.3 mEq/l (22.0-26.0); Modified Allen's Test Pass; Oxygen Content ABG 17.2 %vol (16.0-22.0); Oxygen Saturation ABG 97.6 % (95.0-100.0); Oxyhemoglobin 97.3 % THb (90.0-100.0); PCO2 ABG 39.8 mmHg (35.0-45.0); Site Drawn RIGHT RADIAL; Total Hemoglobin 12.5 g/dL (12.0-18.0); pH ABG 7.421 (7.350-7.450)
[2024-08-31 14:02] LABS: Expiratory Pressure 6 cmH2O; Inspiratory Pressure 12 cmH2O
[2024-08-31] MEDS: DORZOLAMIDE HCL 2% OPHTH DROPS 2 DROP EACH EYE ×3 (16:40→21:21)
[2024-08-31 16:53] LABS: Glucose Point of Care 184 mg/dl (65-105)
--- NOTE | 2024-08-31 18:45 | P.PNIM_ITS ---
Progress Note: A&P Assessment and Plan (1) Respiratory failure: Qualifiers: Chronicity: acute on chronic Respiratory failure complication: hypoxia Qualified Code(s): J96.21 - Acute and chronic respiratory failure with hypoxia Code(s): J96.90 - Respiratory failure, unspecified, unspecified whether with hypoxia or hypercapnia Status: Acute Assessment and Plan: -Acute on chronic hypoxemic respiratory failure with history of hypercapnic respiratory failure admitted on BiPAP d/t work of breathing increased -Wears 2 LPM at baseline - Repeat CXR this morning showed small right pleural effusion and pulm vascular congestion -Continue BiPAP and start IV lasix CT chest,ECHO ordered Continue Lasix and Duonebs and monitor (2) Aspiration pneumonia: Code(s): J69.0 - Pneumonitis due to inhalation of food and vomit Status: Acute Assessment and Plan: -Change antibiotics to Cefepime, Flagyl, vancomycin instead of Zosyn and vancomycin. -MRSA nares negative -Patient recently admitted to hospital and [facility] -Barium swallow study on 08/19/24 showed laryngeal penetration without aspiration, unable to find ST documentation -Ordered soft/bite sized diet (level 6) with mildly thickened liquids (level 2) -Consult speech therapy again for further recommendations (3) UTI (urinary tract infection): Qualifiers: Hematuria presence: with hematuria Urinary tract infection type: acute cystitis Qualified Code(s): N30.01 - Acute cystitis with hematuria Code(s): N39.0 - Urinary tract infection, site not specified Status: Acute Assessment and Plan: -Indwelling suprapubic catheter in place, changed by Urology on 08/26/24 during last hospitalization -Urine culture and blood cultures ordered -broad spectrum abx for now, cefepime, vanc, Flagyl -prior cultures positive including Pseudomonas aeruginosa, Proteus mirabilis and Klebsiella pneumoniae (4) Type 2 diabetes mellitus with diabetic polyneuropathy: Code(s): E11.42 - Type 2 diabetes mellitus with diabetic polyneuropathy Status: Acute Assessment and Plan: -Lantus 20 units Q12HR and sliding scale insulin -hypoglycemia protocol in place -A1c 7.2 -Diet: carb consistent with heart healthy, soft and bite sized with mildly thickened liquids (5) Hypertension: Code(s): I10 - Essential (primary) hypertension Status: Acute Assessment and Plan: -Blood pressure reviewed and stable -Continue home medications (6) Chronic anticoagulation: Code(s): 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 -Ileostomy present with liquid stool output Subjective Date/time seen: 08/31/24 18:45 Interval history: Comfortable at bedside, still on BiPAP Review of Systems Review of Systems: ROS unobtainable: Yes unobtainable due to mental status (chronic confusion) Exam Narrative: APPEARANCE: Patient appears uncomfortable, fidgeting with BiPAP and other equipment Head: atraumatic. EYES: EOMI, NOSE: Atraumatic NECK: Trachea midline RESPIRATORY: Diffuse wheezes/course sounds present, diminished in left base CARDIOVASCULAR: RRR, no peripheral edema ABDOMINAL: Soft nontender, ileostomy present with liquid stool output MUSCULOSKELETAl: No obvious deformities NEURO: Alert. Chronically confused. Moving 4/4 extremities (lowers much weaker than uppers) SKIN:: Warm, dry. Normal color Objective Data Vital Signs Vital Signs: Vital Signs - 24 hr 08/30/24 19:01 08/30/24 19:23 08/30/24 20:00 Temperature Pulse Rate 90 88 82 Respiratory Rate 23 H 18 28 H Blood Pressure 97/66 L 97/66 L 136/54 L Pulse Oximetry 96 97 97 Oxygen Delivery Oxygen Flow Rate Fraction of Inspired Oxygen 08/30/24 20:46 08/30/24 21:20 08/30/24 21:47 Temperature Pulse Rate 85 79 77 Respiratory Rate 24 H Blood Pressure Pulse Oximetry 95 Oxygen Delivery BiPAP Oxygen Flow Rate Fraction of Inspired Oxygen 08/30/24 23:25 08/31/24 00:00 08/31/24 00:00 Temperature Pulse Rate 70 67 67 Respiratory Rate 21 H 24 H Blood Pressure Pulse Oximetry 95 94 Oxygen Delivery BiPAP BiPAP Oxygen Flow Rate Fraction of Inspired Oxygen 28 08/31/24 00:00 08/31/24 00:20 08/31/24 02:20 Temperature 97.7 F Pulse Rate 68 70 62 Respiratory Rate 18 18 Blood Pressure 135/50 L Pulse Oximetry 97 95 95 Oxygen Delivery BiPAP BiPAP Oxygen Flow Rate Fraction of Inspired Oxygen 28 08/31/24 02:20 08/31/24 02:35 08/31/24 03:47 Temperature 97.7 F Pulse Rate 62 68 67 Respiratory Rate 21 H 18 18 Blood Pressure 123/43 L Pulse Oximetry 93 Oxygen Delivery Oxygen Flow Rate Fraction of Inspired Oxygen 08/31/24 04:00 08/31/24 04:00 08/31/24 06:00 Temperature Pulse Rate 65 65 68 Respiratory Rate 18 Blood Pressure Pulse Oximetry 94 Oxygen Delivery BiPAP Oxygen Flow Rate Fraction of Inspired Oxygen 28 08/31/24 07:46 08/31/24 08:00 08/31/24 08:00 Temperature 97.8 F Pulse Rate 70 73 71 Respiratory Rate 26 H 26 H Blood Pressure 141/60 H Pulse Oximetry 98 98 Oxygen Delivery Nasal Cannula Oxygen Flow Rate 3 Fraction of Inspired Oxygen 08/31/24 08:37 08/31/24 09:06 08/31/24 09:06 Temperature Pulse Rate 73 70 70 Respiratory Rate 26 H 26 H Blood Pressure Pulse Oximetry 95 Oxygen Delivery BiPAP Oxygen Flow Rate Fraction of Inspired Oxygen 08/31/24 09:18 08/31/24 12:00 08/31/24 12:00 Temperature 97.5 F L Pulse Rate 66 68 72 Respiratory Rate 24 H 25 H Blood Pressure 145/64 H Pulse Oximetry 94 Oxygen Delivery Oxygen Flow Rate Fraction of Inspired Oxygen 08/31/24 12:00 08/31/24 13:44 08/31/24 13:44 Temperature Pulse Rate 68 65 65 Respiratory Rate 25 H 20 20 Blood Pressure Pulse Oximetry 94 96 Oxygen Delivery BiPAP BiPAP Oxygen Flow Rate Fraction of Inspired Oxygen 28 08/31/24 13:56 08/31/24 16:00 08/31/24 16:00 Temperature 98.9 F Pulse Rate 70 75 69 Respiratory Rate 20 20 Blood Pressure 131/52 L Pulse Oximetry 92 Oxygen Delivery Oxygen Flow Rate Fraction of Inspired Oxygen 08/31/24 16:00 08/31/24 18:00 Temperature Pulse Rate 75 75 Respiratory Rate 20 Blood Pressure Pulse Oximetry 92 Oxygen Delivery Nasal Cannula Oxygen Flow Rate 3 Fraction of Inspired Oxygen 28 Intake/Output Intake/Output: Intake & Output 08/28/24 08/29/24 08/30/24 08/31/24 23:59 23:59 23:59 23:59 Intake Total 3100 1540 Output Total 2625 Balance 3100 -1083 Meds/Results Medications: Active Medications Generic Name Dose Route Start Last Admin Trade Name Freq PRN Reason Stop Dose Admin Acetaminophen 1,000 mg 08/30/24 20:31 Acetaminophen 500 Mg Tablet PO Q6H PRN PAIN RATED 1-3 Albuterol/Ipratropium 3 ml 08/31/24 02:00 08/31/24 13:44 Ipratropium 0.5 Mg/Albuterol Sulfate 2.5 Mg Ampul.Neb 3 Ml INHALATION 3 ml Q6HRT KATHARINE Administration Apixaban 5 mg 08/30/24 21:00 08/31/24 08:36 Apixaban 5 Mg Tablet PO 5 mg Q12HR KATHARINE Administration Dextrose 12.5 gm 08/30/24 20:29 Dextrose 50% 25 Gm/50 Ml Syringe IV PUSH PRN PRN Hypoglycemia Protocol Dorzolamide HCl 2 drop 08/30/24 21:00 08/31/24 16:46 Dorzolamide Hcl 2% Ophth Drops EACH EYE 2 drop 0900,1200,2100 KATHARINE Administration Escitalopram Oxalate 10 mg 08/31/24 09:00 08/31/24 08:36 Escitalopram Oxalate 10 Mg Tablet PO 10 mg DAILY KATHARINE Administration Ferrous Sulfate 325 mg 08/31/24 09:00 08/31/24 16:39 Ferrous Sulfate [address] PO 325 mg BID KATHARINE Administration Flecainide Acetate 50 mg 08/30/24 21:00 08/31/24 08:37 Flecainide Acetate 50 Mg Tablet PO 50 mg Q12HR KATHARINE Administration Furosemide 40 mg 08/31/24 09:00 08/31/24 16:39 Furosemide 40 Mg Tablet PO 40 mg BID KATHARINE Administration Glucagon 1 mg 08/30/24 20:29 Glucagon For Inj 1 Mg Vial IM PRN PRN Hypoglycemia Protocol Glucose 15 gm 08/30/24 20:29 Glucose Oral Gel 15 Gm Of Glucse In 37.5 Gm Tube PO PRN PRN Hypoglycemia Protocol Hyoscyamine 0.125 mg 08/30/24 20:31 Hyoscyamine Sulfate 0.125 Mg Tablet PO BID PRN cramping Cefepime HCl 2 gm in 50 mls @ 100 mls/hr 08/30/24 21:00 08/31/24 08:36 Maxipime 2 Gm/Ns 50 Ml IVPB 100 mls/hr Q12HR KATHARINE Administration Metronidazole 500 mg in 100 mls @ 100 mls/hr 08/30/24 22:00 08/31/24 16:39 Flagyl 500 Mg/Iso Soln 100 Ml IVPB 100 mls/hr Q8H KATHARINE Administration Dextrose 1,000 mls @ 100 mls/hr 08/30/24 20:29 Dextrose 5% 1,000 Ml IVPB PRN PRN Hypoglycemia Protocol Insulin Aspart 3 - 6 units 08/31/24 08:00 08/31/24 16:46 Insulin Aspart (*Bkc) 100 Units/Ml SUB-Q Not Given TIDWM KATHARINE Protocol Insulin Glargine 20 units 08/31/24 09:00 08/31/24 11:54 Insulin Glargine (*Bkc) 100 Units/Ml SUB-Q 20 units Q12HR KATHARINE Administration Levothyroxine Sodium 75 mcg 08/31/24 06:30 08/31/24 06:52 Levothyroxine Sodium 75 Mcg Tablet PO 75 mcg DAILY@0630 KATHARINE Administration Loratadine 10 mg 08/30/24 21:00 08/30/24 21:20 Loratadine 10 Mg Tablet PO 10 mg QHS KATHARINE Administration Melatonin 5 mg 08/30/24 21:00 08/30/24 21:20 Melatonin 5 Mg Tablet PO 5 mg HS KATHARINE Administration Nitroglycerin 0.4 mg 08/30/24 20:31 Nitroglycerin Sl 0.4 Mg Tablet SUBLINGUAL PRN PRN Chest Pain Pantoprazole Sodium 40 mg 08/31/24 09:00 08/31/24 08:36 Pantoprazole 40 Mg Tablet PO 40 mg DAILY KATHARINE Administration Rosuvastatin Calcium 10 mg 08/30/24 21:00 08/30/24 21:20 Rosuvastatin 10 Mg Tablet PO 10 mg HS KATHARINE Administration Saccharomyces Boulardii 250 mg 08/31/24 09:00 08/31/24 16:39 Saccharomyces Boulardii 250 Mg Capsule PO 250 mg BID KATHARINE Administration Radiology Results: ITS Impressions Chest X-Ray 08/31/24 14:05 IMPRESSION: Small right-sided pleural effusion and mild pulmonary vascular congestion, without focal infiltrate. Labs Labs: Laboratory Results - last 24 hr 08/30/24 08/30/24 08/31/24 20:53 21:01 04:18 WBC 13.8 H RBC 4.37 Hgb 11.5 L Hct 37.2 MCV 85.1 MCH 26.3 MCHC 30.9 L RDW 14.3 Plt Count 270 MPV 11.6 H Immature Gran % (Auto) 0.7 H Neut % (Auto) 69.6 Lymph % (Auto) 10.4 L [place] % (Auto) 16.0 H Eos % (Auto) 2.6 Baso % (Auto) 0.7 Lymph # (Auto) 1.43 [place] # (Auto) 2.2 H Eos # (Auto) 0.4 H Baso # (Auto) 0.1 Abs Immat Gran (auto) 0.09 H Absolute Neuts (auto) 9.6 H Absolute Nucleated RBC 0.000 Nucleated RBC % 0.0 ESR 27 H Puncture Site ABG pH ABG pCO2 ABG pO2 ABG PO2/FiO2 Ratio ABG HCO3 ABG O2 Saturation ABG O2 Content ABG Base Excess A-a Gradient Oxyhemoglobin Total Hemoglobin O2 Delivery Device O2 Liters/Min FiO2 Expiratory Pressure Inspiratory Pressure Sodium 141 Potassium 2.9 L Chloride 106 Carbon Dioxide 26 Anion Gap 9 BUN 12 D Creatinine 0.68 L Estim Creat Clear Calc 51 Estimated GFR > 60 Glucose 108 POC Capillary Glucose 136 H Hemoglobin A1c 7.2 H Lactic Acid 1.1 Calcium 9.1 Magnesium 2.0 1.9 Total Bilirubin 0.3 AST 19 ALT 14 Alkaline Phosphatase 70 C-Reactive Protein < 0.5 Total Protein 6.0 L Albumin 3.4 L Procalcitonin 0.1 08/31/24 08/31/24 08/31/24 07:48 11:42 13:55 WBC RBC Hgb Hct MCV MCH MCHC RDW Plt Count MPV Immature Gran % (Auto) Neut % (Auto) Lymph % (Auto) [place] % (Auto) Eos % (Auto) Baso % (Auto) Lymph # (Auto) [place] # (Auto) Eos # (Auto) Baso # (Auto) Abs Immat Gran (auto) Absolute Neuts (auto) Absolute Nucleated RBC Nucleated RBC % ESR Puncture Site Right radial ABG pH 7.421 ABG pCO2 39.8 ABG pO2 98.0 ABG PO2/FiO2 Ratio 3.50 ABG HCO3 25.3 ABG O2 Saturation 97.6 ABG O2 Content 17.2 ABG Base Excess 0.9 A-a Gradient 54.7 Oxyhemoglobin 97.3 Total Hemoglobin 12.5 O2 Delivery Device Bipap O2 Liters/Min Not Reportable FiO2 28 Expiratory Pressure 6 Inspiratory Pressure 12 Sodium Potassium Chloride Carbon Dioxide Anion Gap BUN Creatinine Estim Creat Clear Calc Estimated GFR Glucose POC Capillary Glucose 100 198 H Hemoglobin A1c Lactic Acid Calcium Magnesium Total Bilirubin AST ALT Alkaline Phosphatase C-Reactive Protein Total Protein Albumin Procalcitonin 08/31/24 16:40 WBC RBC Hgb Hct MCV MCH MCHC RDW Plt Count MPV Immature Gran % (Auto) Neut % (Auto) Lymph % (Auto) [place] % (Auto) Eos % (Auto) Baso % (Auto) Lymph # (Auto) [place] # (Auto) Eos # (Auto) Baso # (Auto) Abs Immat Gran (auto) Absolute Neuts (auto) Absolute Nucleated RBC Nucleated RBC % ESR Puncture Site ABG pH ABG pCO2 ABG pO2 ABG PO2/FiO2 Ratio ABG HCO3 ABG O2 Saturation ABG O2 Content ABG Base Excess A-a Gradient Oxyhemoglobin Total Hemoglobin O2 Delivery Device O2 Liters/Min FiO2 Expiratory Pressure Inspiratory Pressure Sodium Potassium Chloride Carbon Dioxide Anion Gap BUN Creatinine Estim Creat Clear Calc Estimated GFR Glucose POC Capillary Glucose 184 H Hemoglobin A1c Lactic Acid Calcium Magnesium Total Bilirubin AST ALT Alkaline Phosphatase C-Reactive Protein Total Protein Albumin Procalcitonin Quality VTE Prophylaxis VTE prophylaxis: pharmacologic ordered (Eliquis)
[2024-08-31 20:08] LABS: Glucose Point of Care 145 mg/dl (65-105)
[2024-08-31] MEDS: FUROSEMIDE INJ 40 MG/4 ML VIAL IV PUSH (21:20)
[2024-09-01] VITALS (25 sets, daily range): BP systolic 112–132; BP diastolic 34–87; PULSE 60–88; RESP 16–20; TEMP 36.3–37.1; O2SAT 94–98
--- NOTE | 2024-09-01 | ECHO_ITS ---
Patient Info Name: Perla Leon Age: 83 years : 1940 Gender: Female Ht: 67 in Wt: 173 lbs BSA: 1.94 m2 HR: 69 bpm BP: 127 / 47 mmHg Heart Rhythm: Sinus Rhythm Technical Quality: Fair Exam Date: 09/01/2024 10:39 AM Exam Location: Echo Lab Patient Status: Inpatient Admit Date: 08/30/2024 Staff Ordering Physician: Oscar Rivas MD [employer] Supervisor: Nivia Brown RDCS Attending Provider: Oscar Rivas MD Exam Type: CA echo doppler color flow Study Info Indications - CHF Complete two-dimensional, color flow and Doppler transthoracic echocardiogram is performed with contrast to opacify the left ventricle and to improve the deliniation of the left ventricle endocardial borders. Contrast/Agitated Saline Contrast/Ag. Saline: Definity Amount: 2.00 ml Administered By: Nivia Brown RDCS Existing IV Access: Yes IV Access Condition: patent with no signs of infiltration Summary 1. The left ventricle is normal in size with hyperdynamic systolic function. The left ventricular ejection fraction is visually estimated to be greater than 70%. 2. The right ventricle is normal in size and systolic function. 3. The left atrium is severely dilated. 4. The aortic valve is not well visualized however the gradients by Doppler suggests moderate aortic stenosis. There is also moderate aortic regurgitation. Left Ventricle The left ventricle is normal in size with hyperdynamic systolic function. The left ventricular ejection fraction is visually estimated to be greater than 70%. Right Ventricle The right ventricle is normal in size and systolic function. Left Atria The left atrium is severely dilated. Right Atria The right atrium is normal size. Atrial Septum The atrial septum is not well visualized. Aortic Valve The aortic valve is not well visualized however the gradients by Doppler suggests moderate aortic stenosis. There is also moderate aortic regurgitation. Pulmonic Valve The pulmonic valve is not well visualized. There is trace pulmonic valve regurgitation. Mitral Valve The mitral valve leaflets are opening. There is trace mitral regurgitation. Tricuspid Valve The tricuspid valve is not well visualized. Pericardium/Pleural Pericardium is normal in appearance with no evidence for significant pericardial effusion. Inferior Vena Cava Normal inferior vena cava with >50% collapse upon inspiration consistent with normal right atrial pressure, 3 mmHg. Aorta The aortic root at the level of the sinus of Valsalva measures 2.8 cm in diameter. Left Ventricular Outflow Tract Name Value Normal LVOT 2D LVOT Diameter 2.0 cm LVOT Doppler LVOT Peak Gradient 6 mmHg LVOT Mean Gradient 3 mmHg LVOT VTI 23 cm LVOT VTI/AV VTI Ratio 0.3 LVOT Stroke Volume 75 ml LVOT CO 5.4 l/min LVOT CI 2.8 l/min/m2 Pulmonic Valve Name Value Normal RVOT Doppler RVOT Peak Gradient 3 mmHg PV Doppler PV Peak Gradient 6 mmHg Mitral Valve Name Value Normal MV Doppler MV Decel Taylor 381 cm/s2 MV PHT 90 ms MV Area (PHT) 2.4 cm2 4.0-5.0 MV Diastolic Function MV E Peak Velocity 119 cm/s MV A Peak Velocity 163 cm/s MV E/A 0.7 MV Decel Time 311 ms MV Annular TDI MV E/e' (Septal) 30.2 <=8.0 MV E/e' (Lateral) 26.6 <=8.0 MV E/e' (Average) 28.4 Tricuspid Valve Name Value Normal TV Regurgitation Doppler TR Peak Velocity 194 cm/s TR Peak Gradient 15 mmHg Estimated PAP/RSVP RA Pressure 3 mmHg <=5 PA Systolic Pressure 18 mmHg <36 RV Systolic Pressure 18 mmHg <36 Aorta Name Value Normal Ascending Aorta Ao Root Diameter (MM) 2.8 cm Ao Root Diam Index (MM) 1.4 cm/m2 Aortic Valve Name Value Normal AV Doppler AV Peak Velocity 359 cm/s AV Peak Gradient 52 mmHg AV Mean Gradient 30 mmHg AV VTI 69 cm AV Area (Cont Eq VTI) 1.1 cm2 >=3.0 AV Area (Cont Eq Javed) 1.1 cm2 AV Regurgitation 2D LVOT Area 3.2 cm2 AV Regurgitation Doppler AR Decel Time 1,505 ms AR Decel Taylor 238 cm/s2 AR PHT 437 ms Ventricles Name Value Normal LV Dimensions 2D/MM IVS Diastolic Thickness (2D) 0.9 cm 0.6-1.0 LVID Diastole (2D) 4.6 cm 3.8-5.2 LVIW Diastolic Thickness (2D) 0.9 cm 0.6-0.9 LVID Systole (2D) 2.8 cm 2.2-3.5 LVOT Diameter 2.0 cm LV Mass (2D Cubed) 136.39 g 67.00-162.00 LV Mass Index (2D Cubed) 70 g/m2 43-95 Relative Wall Thickness (2D) 0.39 LV Fractional Shortening/Ejection Fraction 2D/MM LV Fractional Shortening (2D) 39 % 27-45 LV EF (2D Teicholz) 70 % 54-74 LV Diastolic Volume (4C MOD) 77 ml LV EF (4C MOD) 74 % LV Diastolic Volume (2C MOD) 64 ml LV EF (2C MOD) 63 % LV Diastolic Volume (BP MOD) 73 ml 46-106 LV Diastolic Volume Index (BP MOD) 37 ml/m2 29-61 LV Systolic Volume (BP MOD) 22 ml 14-42 LV Systolic Volume Index (BP MOD) 11 ml/m2 8-24 LV EF (BP MOD) 70 % 54-74 LV Diastolic Length (4C) 7.8 cm LV Systolic Length (4C) 6.1 cm LV Stroke Volume (4C MOD) 58 ml Atria Name Value Normal LA Dimensions LA Dimension (MM) 6.0 cm 2.7-3.8 LA Volume (4C A-L) 84 ml LA Volume (BP A-L) 92 ml RA Dimensions RA Area (4C) 14.5 cm2 <=18.0 Report Signatures
[2024-09-01] MEDS: IPRATROPIUM 0.5 MG/ALBUTEROL SULFATE 2.5 MG AMPUL.NEB 3 ML INHALATION ×3 (01:47→13:49)
[2024-09-01 04:30] LABS: Basophils Absolute Auto 0.1 K/mm3 (0.0-0.1); Basophils Percent Auto 0.8 % (0.2-1.2); Eosinophils Absolute Auto 0.6 K/mm3 (0-0.3); Eosinophils Percent Auto 4.6 % (0-4.4); Hematocrit 36.7 % (37.0-47.0); Hemoglobin 11.4 g/dL (12.0-15.0); Immature Granulocyte Absolute 0.06 K/mm3 (0.00-0.031); Immature Granulocyte Percent A 0.5 % (0-0.5); Lymphocytes Absolute Auto 2.08 K/mm3 (0.9-3.2); Mean Corpuscular HGB Conc 31.1 g/dl (32-36); Mean Corpuscular Hemoglobin 25.6 pg (26-34); Mean Corpuscular Volume 82.5 fl (80-100); Mean Platelet Volume 10.5 fl (7.4-10.4); Monocytes Absolute Auto 2.1 K/mm3 (0.1-0.6); Monocytes Percent Auto 16.4 % (2.6-8.5); Neutrophils Percent Auto 61.7 % (45.5-73.1); Platelet Count Result 274 k/mm3 (150-375); Red Blood Count 4.45 M/mm3 (4.2-5.4); Red Cell Distribution Width 14.3 % (11.5-14.5)
[2024-09-01 04:47] LABS: Alanine Aminotransferase 14 U/L (6-35); Albumin Level 3.5 g/dL (3.5-5.1); Alkaline Phosphatase 69 U/L (38-126); Anion Gap 8 mmol/L (4-12); Aspartate Amino Transferase 20 U/L (14-36); Bilirubin,Total 0.3 mg/dL (0.2-1.3); Blood Urea Nitrogen 9 mg/dL (7-17); Carbon Dioxide 25 mmol/L (22-30); Chloride 107 mmol/L (98-107); Estimated CRCL calculation 56 ml/min; Estimated Glomerular Filt Rate > 60; Glucose 115 mg/dL (65-110); Magnesium 2.1 mg/dL (1.6-2.3); Potassium 3.2 mmol/L (3.4-5.0); Sodium 140 mmol/L (137-145)
[2024-09-01 05:11] LABS: Alveolar/Arterial O2 Gradient 26.2 mmHg; Base Excess ABG -0.3 mEq/l (+/-2.0); Carboxyhemoglobin 0.4 % THb (0-2.0); Fractional Inspired Oxygen 28 %; HCO3 ABG 22.4 mEq/l (22.0-26.0); Methemoglobin ABG 0.1 %THb (0-1.5); Oxygen Content ABG 16.9 %vol (16.0-22.0); Oxygen Saturation ABG 98.9 % (95.0-100.0); Oxyhemoglobin 98.8 % THb (90.0-100.0); PCO2 ABG 30.5 mmHg (35.0-45.0); PO2 ABG 137.5 mmHg (80.0-100.0); PO2 FiO2 Ratio Arterial Blood 4.91 %; Reduced Hemoglobin 0.7 %THb (0-5.0); pH ABG 7.484 (7.350-7.450)
[2024-09-01 05:12] LABS: Device NASAL CANNULA; Modified Allen's Test Pass; Site Drawn RIGHT RADIAL
[2024-09-01] MEDS: LEVOTHYROXINE SODIUM 75 MCG TABLET PO (06:06)
[2024-09-01] MEDS: metroNIDAZOLE 500 MG/ISO 100ML 500 MG/100 ML BAG 100 MG IVPB ×3 (06:06→21:31)
[2024-09-01 07:11] LABS: Glucose Point of Care 131 mg/dl (65-105)
--- NOTE | 2024-09-01 07:40 | PC.NURSE ---
This RN called Dr. Rivas for clarification on medication orders (duplicate lasix dose, unable to crush protonix). Orders received and entered by DES
[2024-09-01] MEDS: PANTOPRAZOLE SODIUM IV 40 MG VIAL IV PUSH (08:13)
[2024-09-01] MEDS: ESCITALOPRAM OXALATE 10 MG TABLET PO (08:14)
[2024-09-01] MEDS: FERROUS SULFATE 325 MG TABLET DR PO ×2 (08:14→16:48)
[2024-09-01] MEDS: FLECAINIDE ACETATE 50 MG TABLET PO ×2 (08:14→20:13)
[2024-09-01] MEDS: CEFEPIME 2 GM/NS 50 ML 2 GM/50 ML BAG IVPB ×2 (08:14→20:14)
[2024-09-01] MEDS: FUROSEMIDE INJ 40 MG/4 ML VIAL IV PUSH (08:14)
[2024-09-01] MEDS: APIXABAN 5 MG TABLET PO ×2 (08:14→20:13)
[2024-09-01] MEDS: INSULIN GLARGINE (*BKC) 100 UNITS/ML 20 UNITS SUB-Q ×2 (08:14→20:20)
[2024-09-01] MEDS: DORZOLAMIDE HCL 2% OPHTH DROPS 2 DROP EACH EYE ×3 (08:14→20:22)
[2024-09-01] MEDS: SACCHAROMYCES BOULARDII 250 MG CAPSULE PO ×2 (08:14→16:48)
[2024-09-01 11:10] LABS: Glucose Point of Care 217 mg/dl (65-105)
[2024-09-01] MEDS: PERFLUTREN LIPID MICROSPHERES 1.5 ML VIAL DILUTED TO 10 ML TOTAL VOLUME IV PUSH (11:11)
[2024-09-01] MEDS: INSULIN ASPART (*BKC) 100 UNITS/ML SUB-Q (11:54)
--- NOTE | 2024-09-01 12:10 | IVDEFINITY ---
Prior to administration of IV Definity the patient was educated on the risks and benefits of the imaging enhancing agent including potential adverse side effects. The patient verbalized understanding. Allergies were verified. No exclusion criteria were identified and at least one of the following inclusion criteria were met: 1) physician request, 2) patient technically difficult to image (per the [place] [employer] guidelines of two or more segments not discernable within the apical view), or 3) questionable left ventricular function. ?
--- NOTE | 2024-09-01 12:11 | PCSTNOTE ---
Please refer to the Modified Barium Swallow (MBS) Evaluation in the EMR. Pt was seen for an MBS due to possible aspiration pneumonia; she was previously seen for an MBS during her last recent admission but it did not reveal aspiration. She was alert and pleasant. She was seated for a lateral view and presented with 5ml thin liquid via a spoon, pudding consistency barium via a spoon, small pieces of cracker coated with barium pudding via spoon, and uncontrolled thin liquid barium. This was presented via a cup & straw. Oral preparatory and oral stages were WFL; during the pharyngeal stage, the following was exhibited: reduced laryngeal elevation as evidenced by laryngeal penetration during the swallow with thin liquid via 5ml and via the straw but it was not present with cup sips; reduced tongue base retraction as evidenced by vallecular residue (mild). Pt required a verbal cue to clear her throat and swallow which cleared the minimal residual and the penetration. No aspiration occurred but risk is present. Impression: mild/moderate dysphagia; increased risk of aspiration with straw drinking (thin liquids). Recommendation: level 6 soft and bite size diet with trial of thin liquids; NO STRAWS. Pt must be either OOB or propped completely upright when eating/drinking and during med pass. If any overt signs of aspiration are exhibited with the thin liquids, i.e. coughing, throat clearing, gurgly wet vocal quality, then downgrade liquids to mildly thick liquids. Thank you for this referral
--- NOTE | 2024-09-01 15:17 | PM.IMPN ---
Progress Note: A&P Assessment and Plan (1) Respiratory failure: Qualifiers: Chronicity: acute on chronic Respiratory failure complication: hypoxia Qualified Code(s): J96.21 - Acute and chronic respiratory failure with hypoxia Code(s): J96.90 - Respiratory failure, unspecified, unspecified whether with hypoxia or hypercapnia Status: Acute Assessment and Plan: -Acute on chronic hypoxemic respiratory failure with history of hypercapnic respiratory failure admitted on BiPAP d/t work of breathing increased -Wears 2 LPM at baseline - Repeat CXR this morning showed small right pleural effusion and pulm vascular congestion -S/p BiPAP now on room air CT chest showed Groundglass opacities in upper lobe ,ECHO pending Continue Lasix and Duonebs and monitor (2) Aspiration pneumonia: Code(s): J69.0 - Pneumonitis due to inhalation of food and vomit Status: Acute Assessment and Plan: -Change antibiotics to Cefepime, Flagyl -MRSA nares negative -Patient recently admitted to hospital and lives in residential for past few months Speech therapy performed MBS which showed risk of aspiration, diet modified (3) UTI (urinary tract infection): Qualifiers: Hematuria presence: with hematuria Urinary tract infection type: acute cystitis Qualified Code(s): N30.01 - Acute cystitis with hematuria Code(s): N39.0 - Urinary tract infection, site not specified Status: Acute Assessment and Plan: -Indwelling suprapubic catheter in place, changed by Urology on 08/26/24 during last hospitalization -Urine culture and blood cultures ordered -broad spectrum abx for now, cefepime, Flagyl -prior cultures positive including Pseudomonas aeruginosa, Proteus mirabilis and Klebsiella pneumoniae (4) Type 2 diabetes mellitus with diabetic polyneuropathy: Code(s): E11.42 - Type 2 diabetes mellitus with diabetic polyneuropathy Status: Acute Assessment and Plan: -Lantus 20 units Q12HR and sliding scale insulin -hypoglycemia protocol in place -A1c 7.2 -Diet: carb consistent with heart healthy, soft and bite sized with mildly thickened liquids (5) Hypertension: Code(s): I10 - Essential (primary) hypertension Status: Acute Assessment and Plan: -Blood pressure reviewed and stable -Continue home medications (6) Chronic anticoagulation: Code(s): Z79.01 - USP (current) use of anticoagulants Status: Acute Assessment and Plan: -On Eliquis 5 mg BID due to history of paroxysmal atrial fibrillation Plan -Speech therapy consutled again -DNR/DNI, family not ready for comfort care yet -May consider need for GI consult for PEG tube??? -Ileostomy present with liquid stool output -Suprapubic catheter Subjective Date/time seen: 09/01/24 15:17 Interval history: Comfortable at bedside, s/p BiPAP now on room air Review of Systems Review of Systems: ROS unobtainable: Yes unobtainable due to mental status (chronic confusion) Exam Narrative: APPEARANCE: Patient appears uncomfortable, fidgeting with BiPAP and other equipment Head: atraumatic. EYES: EOMI, NOSE: Atraumatic NECK: Trachea midline RESPIRATORY: Diffuse wheezes/course sounds present, diminished in left base CARDIOVASCULAR: RRR, no peripheral edema ABDOMINAL: Soft nontender, ileostomy present with liquid stool output MUSCULOSKELETAl: No obvious deformities NEURO: Alert. Chronically confused. Moving 4/4 extremities (lowers much weaker than uppers) SKIN:: Warm, dry. Normal color Objective Data Vital Signs Vital Signs: Vital Signs - 24 hr 08/31/24 16:00 08/31/24 16:00 08/31/24 16:00 Temperature 98.9 F Pulse Rate 75 69 75 Respiratory Rate 20 20 Blood Pressure 131/52 L Pulse Oximetry 92 92 Oxygen Delivery Nasal Cannula Oxygen Flow Rate 3 Fraction of Inspired Oxygen 28 08/31/24 18:00 08/31/24 19:46 08/31/24 20:00 Temperature Pulse Rate 75 89 74 Respiratory Rate 19 19 Blood Pressure 156/66 H Pulse Oximetry 97 96 Oxygen Delivery BiPAP Oxygen Flow Rate Fraction of Inspired Oxygen 35 08/31/24 20:00 08/31/24 20:35 08/31/24 20:42 Temperature Pulse Rate 74 73 73 Respiratory Rate 20 24 H Blood Pressure Pulse Oximetry 96 Oxygen Delivery BiPAP Oxygen Flow Rate Fraction of Inspired Oxygen 08/31/24 20:45 08/31/24 21:52 08/31/24 23:48 Temperature 98.4 F Pulse Rate 75 76 75 Respiratory Rate 20 18 Blood Pressure 126/50 L Pulse Oximetry 97 Oxygen Delivery Oxygen Flow Rate Fraction of Inspired Oxygen 09/01/24 00:00 09/01/24 00:00 09/01/24 01:48 Temperature Pulse Rate 68 68 74 Respiratory Rate 20 20 Blood Pressure Pulse Oximetry 97 Oxygen Delivery Nasal Cannula Oxygen Flow Rate 3 Fraction of Inspired Oxygen 09/01/24 01:54 09/01/24 02:00 09/01/24 03:24 Temperature 98.7 F Pulse Rate 68 66 69 Respiratory Rate 20 19 Blood Pressure 127/47 L Pulse Oximetry 98 Oxygen Delivery Oxygen Flow Rate Fraction of Inspired Oxygen 09/01/24 03:34 09/01/24 03:34 09/01/24 07:37 Temperature 98.0 F Pulse Rate 69 69 63 Respiratory Rate 19 18 Blood Pressure 123/41 L Pulse Oximetry 98 97 Oxygen Delivery Nasal Cannula Oxygen Flow Rate 3 Fraction of Inspired Oxygen 09/01/24 08:00 09/01/24 08:00 09/01/24 08:07 Temperature Pulse Rate 62 Respiratory Rate Blood Pressure Pulse Oximetry 95 94 Oxygen Delivery Nasal Cannula Nasal Cannula Oxygen Flow Rate 2 0.5 Fraction of Inspired Oxygen 09/01/24 08:08 09/01/24 08:14 09/01/24 08:20 Temperature Pulse Rate 61 60 69 Respiratory Rate 16 18 Blood Pressure Pulse Oximetry Oxygen Delivery Oxygen Flow Rate Fraction of Inspired Oxygen 09/01/24 08:29 09/01/24 10:00 09/01/24 11:49 Temperature 98.1 F Pulse Rate 78 74 Respiratory Rate 20 Blood Pressure 112/34 L Pulse Oximetry 95 95 Oxygen Delivery Nasal Cannula Oxygen Flow Rate 0.5 Fraction of Inspired Oxygen 09/01/24 12:00 09/01/24 12:00 09/01/24 13:49 Temperature Pulse Rate 74 Respiratory Rate Blood Pressure Pulse Oximetry 94 Oxygen Delivery Room Air Nasal Cannula Oxygen Flow Rate 0.5 Fraction of Inspired Oxygen 09/01/24 13:50 09/01/24 14:00 09/01/24 14:01 Temperature Pulse Rate 72 76 73 Respiratory Rate 20 18 Blood Pressure Pulse Oximetry Oxygen Delivery Oxygen Flow Rate Fraction of Inspired Oxygen Intake/Output Intake/Output: Intake & Output 08/29/24 08/30/24 08/31/24 09/01/24 23:59 23:59 23:59 23:59 Intake Total 3100 1840 700 Output Total 2625 1950 Balance 4965 -974 -5602 Meds/Results Medications: Active Medications Generic Name Dose Route Start Last Admin Trade Name Freq PRN Reason Stop Dose Admin Acetaminophen 1,000 mg 08/30/24 20:31 Acetaminophen 500 Mg Tablet PO Q6H PRN PAIN RATED 1-3 Albuterol/Ipratropium 3 ml 08/31/24 02:00 09/01/24 13:49 Ipratropium 0.5 Mg/Albuterol Sulfate 2.5 Mg Ampul.Neb 3 Ml INHALATION 3 ml Q6HRT KATHARINE Administration Apixaban 5 mg 08/30/24 21:00 09/01/24 08:14 Apixaban 5 Mg Tablet PO 5 mg Q12HR KATHARINE Administration Dextrose 12.5 gm 08/30/24 20:29 Dextrose 50% 25 Gm/50 Ml Syringe IV PUSH PRN PRN Hypoglycemia Protocol Dorzolamide HCl 2 drop 08/30/24 21:00 09/01/24 11:54 Dorzolamide Hcl 2% Ophth Drops EACH EYE 2 drop 0900,1200,2100 KATHARINE Administration Escitalopram Oxalate 10 mg 08/31/24 09:00 09/01/24 08:14 Escitalopram Oxalate 10 Mg Tablet PO 10 mg DAILY KATHARINE Administration Ferrous Sulfate 325 mg 08/31/24 09:00 09/01/24 08:14 Ferrous Sulfate [address] PO 325 mg BID KATHARINE Administration Flecainide Acetate 50 mg 08/30/24 21:00 09/01/24 08:14 Flecainide Acetate 50 Mg Tablet PO 50 mg Q12HR KATHARINE Administration Furosemide 40 mg 08/31/24 09:00 08/31/24 16:39 Furosemide 40 Mg Tablet PO 40 mg BID KATHARINE Administration Furosemide 40 mg 08/31/24 18:50 09/01/24 08:14 Furosemide Inj 40 Mg/4 Ml Vial IV PUSH 40 mg BID KATHARINE Administration Glucagon 1 mg 08/30/24 20:29 Glucagon For Inj 1 Mg Vial IM PRN PRN Hypoglycemia Protocol Glucose 15 gm 08/30/24 20:29 Glucose Oral Gel 15 Gm Of Glucse In 37.5 Gm Tube PO PRN PRN Hypoglycemia Protocol Hyoscyamine 0.125 mg 08/30/24 20:31 Hyoscyamine Sulfate 0.125 Mg Tablet PO BID PRN cramping Cefepime HCl 2 gm in 50 mls @ 100 mls/hr 08/30/24 21:00 09/01/24 08:14 Maxipime 2 Gm/Ns 50 Ml IVPB 100 mls/hr Q12HR KATHARINE Administration Metronidazole 500 mg in 100 mls @ 100 mls/hr 08/30/24 22:00 09/01/24 14:01 Flagyl 500 Mg/Iso Soln 100 Ml IVPB 100 mls/hr Q8H KATHARINE Administration Dextrose 1,000 mls @ 100 mls/hr 08/30/24 20:29 Dextrose 5% 1,000 Ml IVPB PRN PRN Hypoglycemia Protocol Insulin Aspart 3 - 6 units 08/31/24 08:00 09/01/24 11:54 Insulin Aspart (*Bkc) 100 Units/Ml SUB-Q 3 units TIDWM KATHARINE Administration Protocol Insulin Glargine 20 units 08/31/24 09:00 09/01/24 08:14 Insulin Glargine (*Bkc) 100 Units/Ml SUB-Q 20 units Q12HR KATHARINE Administration Levothyroxine Sodium 75 mcg 08/31/24 06:30 09/01/24 06:06 Levothyroxine Sodium 75 Mcg Tablet PO 75 mcg DAILY@0630 KATHARINE Administration Loratadine 10 mg 08/30/24 21:00 08/31/24 21:21 Loratadine 10 Mg Tablet PO Not Given QHS KATHARINE Melatonin 5 mg 08/30/24 21:00 08/31/24 21:21 Melatonin 5 Mg Tablet PO Not Given HS KATHARINE Nitroglycerin 0.4 mg 08/30/24 20:31 Nitroglycerin Sl 0.4 Mg Tablet SUBLINGUAL PRN PRN Chest Pain Pantoprazole Sodium 40 mg 08/31/24 09:00 08/31/24 08:36 Pantoprazole 40 Mg Tablet PO 40 mg DAILY KATHARINE Administration Pantoprazole Sodium 40 mg 09/01/24 09:00 09/01/24 08:13 Pantoprazole Sodium Iv 40 Mg Vial IV PUSH 40 mg QAM KATHARINE Administration Rosuvastatin Calcium 10 mg 08/30/24 21:00 08/31/24 21:21 Rosuvastatin 10 Mg Tablet PO Not Given HS KATHARINE Saccharomyces Boulardii 250 mg 08/31/24 09:00 09/01/24 08:14 Saccharomyces Boulardii 250 Mg Capsule PO 250 mg BID KATHARINE Administration Radiology Results: ITS Impressions Chest X-Ray 08/31/24 14:05 IMPRESSION: Small right-sided pleural effusion and mild pulmonary vascular congestion, without focal infiltrate. Chest CT 08/31/24 21:01 IMPRESSION: 1. Left basilar atelectasis versus pneumonia. 2. Groundglass appearance in the upper lobe suggestive of atelectasis versus pneumonia. 3. 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 4. Cardiomegaly. Slightly enlarged lymph nodes in the prevascular area. 5. Nodule in the middle lobes. 6 months follow-up advised. Modified Barium Swallow 09/01/24 11:45 IMPRESSION: Pharyngeal dysphagia with laryngeal penetration with thin liquids which is likely at risk of but without evident aspiration. Please correlate with speech pathologist findings and specific feeding recommendations. Labs Labs: Laboratory Results - last 24 hr 08/31/24 08/31/24 09/01/24 16:40 20:06 04:21 WBC 13.0 H RBC 4.45 Hgb 11.4 L Hct 36.7 L MCV 82.5 MCH 25.6 L MCHC 31.1 L RDW 14.3 Plt Count 274 MPV 10.5 H Immature Gran % (Auto) 0.5 Neut % (Auto) 61.7 Lymph % (Auto) 16.0 L [place] % (Auto) 16.4 H Eos % (Auto) 4.6 H Baso % (Auto) 0.8 Lymph # (Auto) 2.08 [place] # (Auto) 2.1 H Eos # (Auto) 0.6 H Baso # (Auto) 0.1 Abs Immat Gran (auto) 0.06 H Absolute Neuts (auto) 8.0 H Absolute Nucleated RBC 0.000 Nucleated RBC % 0.0 Puncture Site ABG pH ABG pCO2 ABG pO2 ABG PO2/FiO2 Ratio ABG HCO3 ABG O2 Saturation ABG O2 Content ABG Base Excess A-a Gradient Oxyhemoglobin Carboxyhemoglobin Methemoglobin Reduced Hemoglobin Total Hemoglobin O2 Delivery Device O2 Liters/Min FiO2 Sodium Potassium Chloride Carbon Dioxide Anion Gap BUN Creatinine Estim Creat Clear Calc Estimated GFR Glucose POC Capillary Glucose 184 H 145 H Calcium Magnesium Total Bilirubin AST ALT Alkaline Phosphatase Total Protein Albumin 09/01/24 09/01/24 09/01/24 04:22 04:48 07:08 WBC RBC Hgb Hct MCV MCH MCHC RDW Plt Count MPV Immature Gran % (Auto) Neut % (Auto) Lymph % (Auto) [place] % (Auto) Eos % (Auto) Baso % (Auto) Lymph # (Auto) [place] # (Auto) Eos # (Auto) Baso # (Auto) Abs Immat Gran (auto) Absolute Neuts (auto) Absolute Nucleated RBC Nucleated RBC % Puncture Site Right radial ABG pH 7.484 H ABG pCO2 30.5 L ABG pO2 137.5 H ABG PO2/FiO2 Ratio 4.91 ABG HCO3 22.4 ABG O2 Saturation 98.9 ABG O2 Content 16.9 ABG Base Excess -0.3 A-a Gradient 26.2 Oxyhemoglobin 98.8 Carboxyhemoglobin 0.4 Methemoglobin 0.1 Reduced Hemoglobin 0.7 Total Hemoglobin 12.0 O2 Delivery Device Nasal cannula O2 Liters/Min 2.0 FiO2 28 Sodium 140 Potassium 3.2 L Chloride 107 Carbon Dioxide 25 Anion Gap 8 BUN 9 Creatinine 0.69 L Estim Creat Clear Calc 56 Estimated GFR > 60 Glucose 115 H POC Capillary Glucose 131 H Calcium 9.0 Magnesium 2.1 Total Bilirubin 0.3 AST 20 ALT 14 Alkaline Phosphatase 69 Total Protein 6.0 L Albumin 3.5 09/01/24 11:03 WBC RBC Hgb Hct MCV MCH MCHC RDW Plt Count MPV Immature Gran % (Auto) Neut % (Auto) Lymph % (Auto) [place] % (Auto) Eos % (Auto) Baso % (Auto) Lymph # (Auto) [place] # (Auto) Eos # (Auto) Baso # (Auto) Abs Immat Gran (auto) Absolute Neuts (auto) Absolute Nucleated RBC Nucleated RBC % Puncture Site ABG pH ABG pCO2 ABG pO2 ABG PO2/FiO2 Ratio ABG HCO3 ABG O2 Saturation ABG O2 Content ABG Base Excess A-a Gradient Oxyhemoglobin Carboxyhemoglobin Methemoglobin Reduced Hemoglobin Total Hemoglobin O2 Delivery Device O2 Liters/Min FiO2 Sodium Potassium Chloride Carbon Dioxide Anion Gap BUN Creatinine Estim Creat Clear Calc Estimated GFR Glucose POC Capillary Glucose 217 H Calcium Magnesium Total Bilirubin AST ALT Alkaline Phosphatase Total Protein Albumin Quality VTE Prophylaxis VTE prophylaxis: pharmacologic ordered (Eliquis)
[2024-09-01 16:22] LABS: Glucose Point of Care 165 mg/dl (65-105)
[2024-09-01] MEDS: FUROSEMIDE INJ 40 MG/4 ML VIAL 20 MG IV PUSH (16:48)
--- NOTE | 2024-09-01 18:57 | PC.NURSE ---
This RN spoke with the patient and her daughter at bedside. PT daughter is concerned about frequent hospitalizations. This RN explained aspiration pneumonia and the high risk of aspiration for the patient currently. PT daughter states the patient does not need to hear this right now it will stress her out . Daughter later called staff to notify that the patient is coughing frequently after being given mildly thick liquid. Notified Blaire who gave order for NPO status. Will notify patient and daughter.
[2024-09-01] MEDS: MELATONIN 5 MG TABLET PO (20:13)
[2024-09-01] MEDS: LORATADINE 10 MG TABLET PO (20:13)
[2024-09-01] MEDS: ROSUVASTATIN 10 MG TABLET PO (20:13)
[2024-09-01 20:22] LABS: Glucose Point of Care 181 mg/dl (65-105)
--- NOTE | 2024-09-01 22:34 | PC.NURSE ---
This patient, Perla Leon, was transferred to [[id number] ] on 09/01/24 at 2234. Personal belongings sent with patient. Report given to [Maryjane cabral ]. Appropriate documentation sent with patient.
--- NOTE | 2024-09-01 23:58 | PCRCNOTE ---
Patient seen for placement on V60 for BiPAP; RN requests not to be placed due to shingles on and in mouth
[2024-09-02] VITALS (13 sets, daily range): BP systolic 125–138; BP diastolic 52–70; PULSE 60–79; RESP 16–22; TEMP 36.1–36.9; O2SAT 94–96
--- NOTE | 2024-09-02 00:03 | PCRCNOTE ---
Patient seen for placement on BiPAP; not placed due to a significant amount of coughing, following presumed aspiration. On 2 L/min nasal cannula. Transferred from room 331 to 348.
--- NOTE | 2024-09-02 00:37 | PC.NURSE ---
Pt transferred from IMU 231-1 @2238 on 09/01/24 to 3 Medical room [facility]. Pt brought up with appropriate documentation and equipment. Report received from DES Ramos in IMU.
[2024-09-02] MEDS: metroNIDAZOLE 500 MG/ISO 100ML 500 MG/100 ML BAG 100 MG IVPB (05:20)
[2024-09-02 05:36] LABS: Basophils Absolute Auto 0.1 K/mm3 (0.0-0.1); Eosinophils Absolute Auto 0.7 K/mm3 (0-0.3); Eosinophils Percent Auto 5.4 % (0-4.4); Hematocrit 39.4 % (37.0-47.0); Hemoglobin 12.2 g/dL (12.0-15.0); Immature Granulocyte Absolute 0.06 K/mm3 (0.00-0.031); Immature Granulocyte Percent A 0.4 % (0-0.5); Lymphocytes Absolute Auto 2.14 K/mm3 (0.9-3.2); Lymphocytes Percent Auto 15.7 % (18.3-44.2); Mean Corpuscular Hemoglobin 26.1 pg (26-34); Mean Corpuscular Volume 84.4 fl (80-100); Mean Platelet Volume 11.3 fl (7.4-10.4); Monocytes Absolute Auto 2.3 K/mm3 (0.1-0.6); Monocytes Percent Auto 17.1 % (2.6-8.5); Neutrophils Absolute Auto 8.2 K/mm3 (1.3-6.7); Neutrophils Percent Auto 60.4 % (45.5-73.1); Platelet Count Result 273 k/mm3 (150-375); Red Blood Count 4.67 M/mm3 (4.2-5.4); Red Cell Distribution Width 14.6 % (11.5-14.5); White Blood Count 13.6 K/mm3 (4.5-10.0)
[2024-09-02 06:25] LABS: Alanine Aminotransferase 14 U/L (6-35); Albumin Level 3.5 g/dL (3.5-5.1); Alkaline Phosphatase 72 U/L (38-126); Anion Gap 7 mmol/L (4-12); Aspartate Amino Transferase 23 U/L (14-36); Bilirubin,Total 0.4 mg/dL (0.2-1.3); Blood Urea Nitrogen 10 mg/dL (7-17); Calcium 9.5 mg/dL (8.4-10.2); Carbon Dioxide 24 mmol/L (22-30); Chloride 108 mmol/L (98-107); Estimated CRCL calculation 47 ml/min; Estimated Glomerular Filt Rate > 60; Glucose 134 mg/dL (65-110); Magnesium 2.3 mg/dL (1.6-2.3); Potassium 3.3 mmol/L (3.4-5.0); Sodium 139 mmol/L (137-145)
[2024-09-02 07:22] LABS: Glucose Point of Care 132 mg/dl (65-105)
[2024-09-02] MEDS: CEFEPIME 2 GM/NS 50 ML 2 GM/50 ML BAG IVPB (08:52)
[2024-09-02] MEDS: ESCITALOPRAM OXALATE 10 MG TABLET PO (08:53)
[2024-09-02] MEDS: APIXABAN 5 MG TABLET PO ×2 (08:53→22:18)
[2024-09-02] MEDS: DORZOLAMIDE HCL 2% OPHTH DROPS 2 DROP EACH EYE ×3 (08:53→22:19)
[2024-09-02] MEDS: FUROSEMIDE INJ 40 MG/4 ML VIAL 20 MG IV PUSH (08:53)
[2024-09-02] MEDS: PANTOPRAZOLE SODIUM IV 40 MG VIAL IV PUSH (08:53)
[2024-09-02 09:32] LABS: Alveolar/Arterial O2 Gradient 89.6 mmHg; Base Excess ABG -2.1 mEq/l (+/-2.0); Fractional Inspired Oxygen 28 %; HCO3 ABG 21.9 mEq/l (22.0-26.0); Oxygen Content ABG 16.7 %vol (16.0-22.0); Oxygen Saturation ABG 94.3 % (95.0-100.0); Oxyhemoglobin 93.5 % THb (90.0-100.0); PCO2 ABG 34.7 mmHg (35.0-45.0); PO2 ABG 69.1 mmHg (80.0-100.0); PO2 FiO2 Ratio Arterial Blood 2.47 %; Total Hemoglobin 12.7 g/dL (12.0-18.0); pH ABG 7.417 (7.350-7.450)
[2024-09-02 09:34] LABS: Device NASAL CANNULA; Modified Allen's Test Pass; Site Drawn RIGHT RADIAL
[2024-09-02 12:11] LABS: Glucose Point of Care 114 mg/dl (65-105)
[2024-09-02] MEDS: metroNIDAZOLE 500 MG TABLET PO ×2 (13:01→22:17)
--- NOTE | 2024-09-02 13:58 | PCSTNOTE ---
Please refer to the Bedside Swallow Evaluation in the EMR. Please note, silent aspiration cannot be ruled out at bedside. The above pt was seen for a MBS yesterday which revealed laryngeal penetration with thin liquids but no trans glottic aspiration (risk was present). It was recommended that pt be propped up or OOB for meals and no straws. It was recommended that if pt presents with further difficulty to downgrade to mildly thick liquids. Nursing staff reported pt has been exhibiting overt s/s of aspiration, i.e. coughing with drinking of thin liquids. Pt was referred back to for reassessment at the bedside to possibly downgrade diet. Pt was seen with her lunch meal of level 6 soft and bite sized solids and mildly thick liquids. Pt was able to feed herself and independently take sips from a cup. Straw drinking still not tested or recommended. The oral stage was WFL with no oral residue, pocketing, or leakage; pharyngeal stage appeared intact with no overt s/s of aspiration during the entire meal. Impressions/Recommendations: pt appears to be tolerating level 6 soft and bite size diet with mildly thick liquids. Continue with this diet and continue with dysphagia therapy focusing on laryngeal elevation and closure. Thank you for this referral.
--- NOTE | 2024-09-02 16:34 | P.PNIM_ITS ---
Progress Note: A&P Assessment and Plan (1) Respiratory failure: Qualifiers: Chronicity: acute on chronic Respiratory failure complication: hypoxia Qualified Code(s): J96.21 - Acute and chronic respiratory failure with hypoxia Code(s): J96.90 - Respiratory failure, unspecified, unspecified whether with hypoxia or hypercapnia Status: Acute Assessment and Plan: -Acute on chronic hypoxemic respiratory failure with history of hypercapnic respiratory failure admitted on BiPAP d/t work of breathing increased -Wears 2 LPM at baseline - Repeat CXR this morning showed small right pleural effusion and pulm vascular congestion -S/p BiPAP now on [address] chest showed Groundglass opacities in upper lobe ,ECHO pending Continue Lasix and Duonebs and monitor (2) Aspiration pneumonia: Code(s): J69.0 - Pneumonitis due to inhalation of food and vomit Status: Acute Assessment and Plan: -Change antibiotics to Cefepime, Flagyl -MRSA nares negative -Patient recently admitted to hospital and lives in care home for past few months Speech therapy performed MBS which showed risk of aspiration, diet modified (3) UTI (urinary tract infection): Qualifiers: Hematuria presence: with hematuria Urinary tract infection type: acute cystitis Qualified Code(s): N30.01 - Acute cystitis with hematuria Code(s): N39.0 - Urinary tract infection, site not specified Status: Acute Assessment and Plan: -Indwelling suprapubic catheter in place, changed by Urology on 08/26/24 during last hospitalization -Urine culture and blood cultures ordered -broad spectrum abx for now, cefepime, Flagyl -prior cultures positive including Pseudomonas aeruginosa, Proteus mirabilis and Klebsiella pneumoniae (4) Type 2 diabetes mellitus with diabetic polyneuropathy: Code(s): E11.42 - Type 2 diabetes mellitus with diabetic polyneuropathy Status: Acute Assessment and Plan: -Lantus 20 units Q12HR and sliding scale insulin -hypoglycemia protocol in place -A1c 7.2 -Diet: carb consistent with heart healthy, soft and bite sized with mildly thickened liquids (5) Hypertension: Code(s): I10 - Essential (primary) hypertension Status: Acute Assessment and Plan: -Blood pressure reviewed and stable -Continue home medications (6) Chronic anticoagulation: Code(s): Z79.01 - terminal manager (current) use of anticoagulants Status: Acute Assessment and Plan: -On Eliquis 5 mg BID due to history of paroxysmal atrial fibrillation Plan -Speech therapy consutled again -DNR/DNI, family not ready for comfort care yet -May consider need for GI consult for PEG tube??? -Ileostomy present with liquid stool output -Suprapubic catheter Subjective Date/time seen: 09/02/24 16:34 Interval history: Patient was coughing very uncomfortably CXR showed no acute changes in lungs monitor one more day Review of Systems Review of Systems: ROS unobtainable: Yes unobtainable due to mental status (chronic confusion) Exam Narrative: APPEARANCE: coughing Head: atraumatic. EYES: EOMI, NOSE: Atraumatic NECK: Trachea midline RESPIRATORY: Diffuse wheezes/course sounds present, diminished in left base CARDIOVASCULAR: RRR, no peripheral edema ABDOMINAL: Soft nontender, ileostomy present with liquid stool output MUSCULOSKELETAl: No obvious deformities NEURO: Alert. Chronically confused. Moving 4/4 extremities (lowers much weaker than uppers) SKIN:: Warm, dry. Normal color Objective Data Vital Signs Vital Signs: Vital Signs - 24 hr 09/01/24 20:00 09/01/24 20:00 09/01/24 20:13 Temperature Pulse Rate 88 88 88 Respiratory Rate 20 Blood Pressure Pulse Oximetry 94 Oxygen Delivery Nasal Cannula Oxygen Flow Rate 2 Fraction of Inspired Oxygen 35 09/01/24 22:42 09/01/24 23:00 09/02/24 00:00 Temperature 97.4 F L Pulse Rate 70 67 Respiratory Rate 18 Blood Pressure 132/87 Pulse Oximetry 95 95 Oxygen Delivery Nasal Cannula Oxygen Flow Rate 2 Fraction of Inspired Oxygen 09/02/24 04:00 09/02/24 05:42 09/02/24 08:25 Temperature 97.0 F L Pulse Rate 60 67 Respiratory Rate 18 Blood Pressure 125/53 L Pulse Oximetry 95 95 Oxygen Delivery Nasal Cannula Oxygen Flow Rate 2 Fraction of Inspired Oxygen 09/02/24 09:40 09/02/24 09:40 09/02/24 12:00 Temperature Pulse Rate 62 68 Respiratory Rate Blood Pressure Pulse Oximetry 95 Oxygen Delivery Nasal Cannula Oxygen Flow Rate 2 Fraction of Inspired Oxygen 09/02/24 13:38 09/02/24 16:00 Temperature 98.0 F Pulse Rate 69 65 Respiratory Rate 18 Blood Pressure 126/70 Pulse Oximetry 96 Oxygen Delivery Oxygen Flow Rate Fraction of Inspired Oxygen Intake/Output Intake/Output: Intake & Output 08/30/24 08/31/24 09/01/24 09/02/24 23:59 23:59 23:59 23:59 Intake Total 3100 1840 1480 100 Output Total 2625 2950 625 Balance 3100 -785 -1470 -525 Meds/Results Medications: Active Medications Generic Name Dose Route Start Last Admin Trade Name Freq PRN Reason Stop Dose Admin Acetaminophen 1,000 mg 08/30/24 20:31 Acetaminophen 500 Mg Tablet PO Q6H PRN PAIN RATED 1-3 Albuterol 2.5 mg 09/02/24 10:01 Albuterol Sulfate Neb 2.5 Mg/3 Ml Inh INHALATION Q4HRT PRN Shortness Of Breath Apixaban 5 mg 08/30/24 21:00 09/02/24 08:53 Apixaban 5 Mg Tablet PO 5 mg Q12HR KATHARINE Administration Dextrose 12.5 gm 08/30/24 20:29 Dextrose 50% 25 Gm/50 Ml Syringe IV PUSH PRN PRN Hypoglycemia Protocol Dorzolamide HCl 2 drop 08/30/24 21:00 09/02/24 13:00 Dorzolamide Hcl 2% Ophth Drops EACH EYE 2 drop 0900,1200,2100 KATHARINE Administration Escitalopram Oxalate 10 mg 08/31/24 09:00 09/02/24 08:53 Escitalopram Oxalate 10 Mg Tablet PO 10 mg DAILY KATHARINE Administration Ferrous Sulfate 325 mg 08/31/24 09:00 09/02/24 16:18 Ferrous Sulfate [address] PO Not Given BID KATHARINE Flecainide Acetate 50 mg 08/30/24 21:00 09/02/24 16:18 Flecainide Acetate 50 Mg Tablet PO Not Given Q12HR KATHARINE Furosemide 40 mg 08/31/24 09:00 08/31/24 16:39 Furosemide 40 Mg Tablet PO 40 mg BID KATHARINE Administration Furosemide 20 mg 09/01/24 17:00 09/02/24 08:53 Furosemide Inj 40 Mg/4 Ml Vial IV PUSH 20 mg BID KATHARINE Administration Glucagon 1 mg 08/30/24 20:29 Glucagon For Inj 1 Mg Vial IM PRN PRN Hypoglycemia Protocol Glucose 15 gm 08/30/24 20:29 Glucose Oral Gel 15 Gm Of Glucse In 37.5 Gm Tube PO PRN PRN Hypoglycemia Protocol Guaifenesin/Dextromethorphan 10 ml 09/02/24 09:57 Guaifenesin/Dextromethorphan 10 Ml Udc PO Q4H PRN Cough Hyoscyamine 0.125 mg 08/30/24 20:31 Hyoscyamine Sulfate 0.125 Mg Tablet PO BID PRN cramping Dextrose 1,000 mls @ 100 mls/hr 08/30/24 20:29 Dextrose 5% 1,000 Ml IVPB PRN PRN Hypoglycemia Protocol Insulin Aspart 3 - 6 units 08/31/24 08:00 09/02/24 13:07 Insulin Aspart (*Bkc) 100 Units/Ml SUB-Q Not Given TIDWM KATHARINE Protocol Insulin Glargine 20 units 08/31/24 09:00 09/02/24 13:05 Insulin Glargine (*Bkc) 100 Units/Ml SUB-Q Not Given Q12HR KATHARINE Levofloxacin 750 mg 09/02/24 21:00 Levofloxacin 750 Mg Tablet PO 09/04/24 21:01 Q48H KATHARINE Levothyroxine Sodium 75 mcg 08/31/24 06:30 09/02/24 06:28 Levothyroxine Sodium 75 Mcg Tablet PO Not Given DAILY@0630 KATHARINE Loratadine 10 mg 08/30/24 21:00 09/01/24 20:13 Loratadine 10 Mg Tablet PO 10 mg QHS KATHARINE Administration Melatonin 5 mg 08/30/24 21:00 09/01/24 20:13 Melatonin 5 Mg Tablet PO 5 mg HS KATHARINE Administration Metronidazole 500 mg 09/02/24 14:00 09/02/24 13:01 Metronidazole 500 Mg Tablet PO 09/05/24 23:59 500 mg Q8HR KATHARINE Administration Nitroglycerin 0.4 mg 08/30/24 20:31 Nitroglycerin Sl 0.4 Mg Tablet SUBLINGUAL PRN PRN Chest Pain Pantoprazole Sodium 40 mg 08/31/24 09:00 08/31/24 08:36 Pantoprazole 40 Mg Tablet PO 40 mg DAILY KATHARINE Administration Pantoprazole Sodium 40 mg 09/01/24 09:00 09/02/24 08:53 Pantoprazole Sodium Iv 40 Mg Vial IV PUSH 40 mg QAM KATHARINE Administration Rosuvastatin Calcium 10 mg 08/30/24 21:00 09/01/24 20:13 Rosuvastatin 10 Mg Tablet PO 10 mg HS KATHARINE Administration Saccharomyces Boulardii 250 mg 08/31/24 09:00 09/02/24 16:19 Saccharomyces Boulardii 250 Mg Capsule PO Not Given BID [facility] Radiology Results: ITS Impressions Chest CT 08/31/24 21:01 IMPRESSION: 1. Left basilar atelectasis versus pneumonia. 2. Groundglass appearance in the upper lobe suggestive of atelectasis versus pneumonia. 3. 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 4. Cardiomegaly. Slightly enlarged lymph nodes in the prevascular area. 5. Nodule in the middle lobes. 6 months follow-up advised. Modified Barium Swallow 09/01/24 11:45 IMPRESSION: Pharyngeal dysphagia with laryngeal penetration with thin liquids which is likely at risk of but without evident aspiration. Please correlate with speech pathologist findings and specific feeding recommendations. Chest X-Ray 09/02/24 09:53 IMPRESSION: No focal infiltrate or effusion. Labs Labs: Laboratory Results - last 24 hr 09/01/24 09/02/24 09/02/24 20:17 05:26 05:56 WBC 13.6 H RBC 4.67 Hgb 12.2 Hct 39.4 MCV 84.4 MCH 26.1 MCHC 31.0 L RDW 14.6 H Plt Count 273 MPV 11.3 H Immature Gran % (Auto) 0.4 Neut % (Auto) 60.4 Lymph % (Auto) 15.7 L [place] % (Auto) 17.1 H Eos % (Auto) 5.4 H Baso % (Auto) 1.0 Lymph # (Auto) 2.14 [place] # (Auto) 2.3 H Eos # (Auto) 0.7 H Baso # (Auto) 0.1 Abs Immat Gran (auto) 0.06 H Absolute Neuts (auto) 8.2 H Absolute Nucleated RBC 0.000 Nucleated RBC % 0.0 Puncture Site ABG pH ABG pCO2 ABG pO2 ABG PO2/FiO2 Ratio ABG HCO3 ABG O2 Saturation ABG O2 Content ABG Base Excess A-a Gradient Oxyhemoglobin Total Hemoglobin O2 Delivery Device O2 Liters/Min FiO2 Sodium 139 Potassium 3.3 L Chloride 108 H Carbon Dioxide 24 Anion Gap 7 BUN 10 Creatinine 0.73 Estim Creat Clear Calc 47 Estimated GFR > 60 Glucose 134 H POC Capillary Glucose 181 H Calcium 9.5 Magnesium 2.3 Total Bilirubin 0.4 AST 23 ALT 14 Alkaline Phosphatase 72 Total Protein 7.0 Albumin 3.5 09/02/24 09/02/24 09/02/24 07:17 09:18 12:07 WBC RBC Hgb Hct MCV MCH MCHC RDW Plt Count MPV Immature Gran % (Auto) Neut % (Auto) Lymph % (Auto) [place] % (Auto) Eos % (Auto) Baso % (Auto) Lymph # (Auto) [place] # (Auto) Eos # (Auto) Baso # (Auto) Abs Immat Gran (auto) Absolute Neuts (auto) Absolute Nucleated RBC Nucleated RBC % Puncture Site Right radial ABG pH 7.417 ABG pCO2 34.7 L ABG pO2 69.1 L ABG PO2/FiO2 Ratio 2.47 ABG HCO3 21.9 L ABG O2 Saturation 94.3 L ABG O2 Content 16.7 ABG Base Excess -2.1 A-a Gradient 89.6 Oxyhemoglobin 93.5 Total Hemoglobin 12.7 O2 Delivery Device Nasal cannula O2 Liters/Min 2.0 FiO2 28 Sodium Potassium Chloride Carbon Dioxide Anion Gap BUN Creatinine Estim Creat Clear Calc Estimated GFR Glucose POC Capillary Glucose 132 H 114 H Calcium Magnesium Total Bilirubin AST ALT Alkaline Phosphatase Total Protein Albumin Quality VTE Prophylaxis VTE prophylaxis: pharmacologic ordered (Eliquis)
[2024-09-02 17:05] LABS: Glucose Point of Care 150 mg/dl (65-105)
[2024-09-02] MEDS: FERROUS SULFATE 325 MG TABLET DR PO (17:39)
[2024-09-02] MEDS: SACCHAROMYCES BOULARDII 250 MG CAPSULE PO (17:39)
[2024-09-02 19:28] LABS: Glucose Point of Care 131 mg/dl (65-105)
[2024-09-02] MEDS: INSULIN GLARGINE (*BKC) 100 UNITS/ML 20 UNITS SUB-Q (22:15)
[2024-09-02] MEDS: LORATADINE 10 MG TABLET PO (22:17)
[2024-09-02] MEDS: FLECAINIDE ACETATE 50 MG TABLET PO (22:17)
[2024-09-02] MEDS: MELATONIN 5 MG TABLET PO (22:17)
[2024-09-02] MEDS: ROSUVASTATIN 10 MG TABLET PO (22:17)
[2024-09-02] MEDS: levoFLOXacin 750 MG TABLET PO (22:18)
[2024-09-03] VITALS (11 sets, daily range): BP systolic 124–142; BP diastolic 42–77; PULSE 62–71; RESP 16–18; TEMP 36.2–36.6; O2SAT 94–98
[2024-09-03] MEDS: LEVOTHYROXINE SODIUM 75 MCG TABLET PO (05:31)
[2024-09-03] MEDS: metroNIDAZOLE 500 MG TABLET PO (05:32)
[2024-09-03 05:36] LABS: Basophils Absolute Auto 0.1 K/mm3 (0.0-0.1); Basophils Percent Auto 0.7 % (0.2-1.2); Eosinophils Absolute Auto 0.8 K/mm3 (0-0.3); Eosinophils Percent Auto 5.2 % (0-4.4); Hematocrit 40.9 % (37.0-47.0); Hemoglobin 12.3 g/dL (12.0-15.0); Immature Granulocyte Percent A 0.7 % (0-0.5); Lymphocytes Absolute Auto 2.09 K/mm3 (0.9-3.2); Lymphocytes Percent Auto 14.4 % (18.3-44.2); Mean Corpuscular HGB Conc 30.1 g/dl (32-36); Mean Corpuscular Hemoglobin 25.8 pg (26-34); Mean Corpuscular Volume 85.7 fl (80-100); Mean Platelet Volume 11.5 fl (7.4-10.4); Monocytes Absolute Auto 2.3 K/mm3 (0.1-0.6); Neutrophils Absolute Auto 9.2 K/mm3 (1.3-6.7); Platelet Count Result 293 k/mm3 (150-375); Red Blood Count 4.77 M/mm3 (4.2-5.4); Red Cell Distribution Width 14.3 % (11.5-14.5); White Blood Count 14.5 K/mm3 (4.5-10.0)
[2024-09-03 05:51] LABS: Alanine Aminotransferase 16 U/L (6-35); Albumin Level 3.5 g/dL (3.5-5.1); Alkaline Phosphatase 70 U/L (38-126); Anion Gap 9 mmol/L (4-12); Aspartate Amino Transferase 29 U/L (14-36); Bilirubin,Total 0.3 mg/dL (0.2-1.3); Blood Urea Nitrogen 9 mg/dL (7-17); Calcium 9.8 mg/dL (8.4-10.2); Carbon Dioxide 20 mmol/L (22-30); Chloride 107 mmol/L (98-107); Estimated CRCL calculation 58 ml/min; Estimated Glomerular Filt Rate > 60; Glucose 105 mg/dL (65-110); Magnesium 2.3 mg/dL (1.6-2.3); Potassium 3.4 mmol/L (3.4-5.0); Sodium 136 mmol/L (137-145)
[2024-09-03 07:41] LABS: Glucose Point of Care 109 mg/dl (65-105)
[2024-09-03] MEDS: PANTOPRAZOLE SODIUM IV 40 MG VIAL IV PUSH (09:15)
[2024-09-03] MEDS: FERROUS SULFATE 325 MG TABLET DR PO ×2 (09:16→18:36)
[2024-09-03] MEDS: FLECAINIDE ACETATE 50 MG TABLET PO ×2 (09:16→22:00)
[2024-09-03] MEDS: ESCITALOPRAM OXALATE 10 MG TABLET PO (09:16)
[2024-09-03] MEDS: APIXABAN 5 MG TABLET PO ×2 (09:17→22:00)
[2024-09-03] MEDS: DORZOLAMIDE HCL 2% OPHTH DROPS 2 DROP EACH EYE ×3 (09:17→21:53)
[2024-09-03] MEDS: SACCHAROMYCES BOULARDII 250 MG CAPSULE PO ×2 (09:17→18:36)
[2024-09-03] MEDS: INSULIN GLARGINE (*BKC) 100 UNITS/ML 20 UNITS SUB-Q ×2 (09:18→22:02)
--- NOTE | 2024-09-03 11:01 | P.PNIM_ITS ---
Progress Note: A&P Assessment and Plan (1) Respiratory failure: Qualifiers: Chronicity: acute on chronic Respiratory failure complication: hypoxia Qualified Code(s): J96.21 - Acute and chronic respiratory failure with hypoxia Code(s): J96.90 - Respiratory failure, unspecified, unspecified whether with hypoxia or hypercapnia Status: Acute Assessment and Plan: -Acute on chronic hypoxemic respiratory failure with history of hypercapnic respiratory failure admitted on BiPAP d/t work of breathing increased -Wears 2 LPM at baseline - Repeat CXR this morning showed small right pleural effusion and pulm vascular congestion -S/p BiPAP now on [address] chest showed Groundglass opacities in upper lobe ,ECHO showed normal exam Continue Lasix and Duonebs and monitor due to continuing dyspnea Pulmonology has been consulted (2) Aspiration pneumonia: Code(s): J69.0 - Pneumonitis due to inhalation of food and vomit Status: Acute Assessment and Plan: CT chest showed Groundglass opacities in upper lobe ,ECHO showed normal exam -MRSA nares negative -Patient recently admitted to hospital and lives in assisted for past few months Speech therapy performed MBS which showed risk of aspiration, diet modified -Completed Cefepime, Flagyl today 09/03/24 however due to worsening Dyspnea and Leukocytosis patient has been started on Meropenem and Doxycycline WBC 14.5 (3) UTI (urinary tract infection): Qualifiers: Hematuria presence: with hematuria Urinary tract infection type: acute cystitis Qualified Code(s): N30.01 - Acute cystitis with hematuria Code(s): N39.0 - Urinary tract infection, site not specified Status: Acute Assessment and Plan: -Indwelling suprapubic catheter in place, changed by Urology on 08/26/24 during last hospitalization -Urine culture and blood cultures ordered -broad spectrum abx for now, cefepime, Flagyl -prior cultures positive including Pseudomonas aeruginosa, Proteus mirabilis and Klebsiella pneumoniae (4) Type 2 diabetes mellitus with diabetic polyneuropathy: Code(s): E11.42 - Type 2 diabetes mellitus with diabetic polyneuropathy Status: Acute Assessment and Plan: -Lantus 20 units Q12HR and sliding scale insulin -hypoglycemia protocol in place -A1c 7.2 -Diet: carb consistent with heart healthy, soft and bite sized with mildly thickened liquids (5) Hypertension: Code(s): I10 - Essential (primary) hypertension Status: Acute Assessment and Plan: -Blood pressure reviewed and stable -Continue home medications (6) Chronic anticoagulation: Code(s): Z79.01 - alf (current) use of anticoagulants Status: Acute Assessment and Plan: -On Eliquis 5 mg BID due to history of paroxysmal atrial fibrillation Plan -Speech therapy consutled again -DNR/DNI, family not ready for comfort care yet -May consider need for GI consult for PEG tube??? -Ileostomy present with liquid stool output -Suprapubic catheter Subjective Date/time seen: 09/03/24 11:01 Interval history: Patient still complaining of SOB and cough at rest Pulmonology consulted Review of Systems Review of Systems: ROS unobtainable: Yes unobtainable due to mental status (chronic confusion) Exam Narrative: APPEARANCE: coughing Head: atraumatic. EYES: EOMI, NOSE: Atraumatic NECK: Trachea midline RESPIRATORY: Diffuse wheezes/course sounds present, diminished in left base CARDIOVASCULAR: RRR, no peripheral edema ABDOMINAL: Soft nontender, ileostomy present with liquid stool output MUSCULOSKELETAl: No obvious deformities NEURO: Alert. Chronically confused. Moving 4/4 extremities (lowers much weaker than uppers) SKIN:: Warm, dry. Normal color Objective Data Vital Signs Vital Signs: Vital Signs - 24 hr 09/02/24 12:00 09/02/24 13:38 09/02/24 16:00 Temperature 98.0 F Pulse Rate 68 69 65 Respiratory Rate 18 Blood Pressure 126/70 Pulse Oximetry 96 Oxygen Delivery Oxygen Flow Rate Fraction of Inspired Oxygen 09/02/24 20:07 09/02/24 22:00 09/02/24 22:15 Temperature 98.4 F Pulse Rate 79 68 Respiratory Rate 20 16 Blood Pressure 138/52 L Pulse Oximetry 94 94 94 Oxygen Delivery Nasal Cannula Nasal Cannula Oxygen Flow Rate 2 2 Fraction of Inspired Oxygen 28 09/02/24 22:15 09/02/24 22:17 09/02/24 23:53 Temperature Pulse Rate 69 76 66 Respiratory Rate 22 H Blood Pressure Pulse Oximetry 96 Oxygen Delivery BiPAP Oxygen Flow Rate Fraction of Inspired Oxygen 09/03/24 00:00 09/03/24 04:00 09/03/24 06:00 Temperature 98 F Pulse Rate 64 62 64 Respiratory Rate 16 Blood Pressure 142/48 H Pulse Oximetry 94 Oxygen Delivery Oxygen Flow Rate Fraction of Inspired Oxygen 09/03/24 08:09 09/03/24 09:16 Temperature Pulse Rate 62 71 Respiratory Rate 18 Blood Pressure Pulse Oximetry 98 Oxygen Delivery Nasal Cannula Oxygen Flow Rate 2 Fraction of Inspired Oxygen Intake/Output Intake/Output: Intake & Output 08/31/24 09/01/24 09/02/24 09/03/24 23:59 23:59 23:59 23:59 Intake Total 1840 1480 440 450 Output Total 2625 2950 1475 700 [facility] -785 -1470 -1035 -250 Meds/Results Medications: Active Medications Generic Name Dose Route Start Last Admin Trade Name Freq PRN Reason Stop Dose Admin Acetaminophen 1,000 mg 08/30/24 20:31 Acetaminophen 500 Mg Tablet PO Q6H PRN PAIN RATED 1-3 Albuterol 2.5 mg 09/02/24 10:01 Albuterol Sulfate Neb 2.5 Mg/3 Ml Inh INHALATION Q4HRT PRN Shortness Of Breath Apixaban 5 mg 08/30/24 21:00 09/03/24 09:17 Apixaban 5 Mg Tablet PO 5 mg Q12HR KATHARINE Administration Dextrose 12.5 gm 08/30/24 20:29 Dextrose 50% 25 Gm/50 Ml Syringe IV PUSH PRN PRN Hypoglycemia Protocol Dorzolamide HCl 2 drop 08/30/24 21:00 09/03/24 09:17 Dorzolamide Hcl 2% Ophth Drops EACH EYE 2 drop 0900,1200,2100 KATHARINE Administration Escitalopram Oxalate 10 mg 08/31/24 09:00 09/03/24 09:16 Escitalopram Oxalate 10 Mg Tablet PO 10 mg DAILY KATHARINE Administration Ferrous Sulfate 325 mg 08/31/24 09:00 09/03/24 09:16 Ferrous Sulfate [address] PO 325 mg BID KATHARINE Administration Flecainide Acetate 50 mg 08/30/24 21:00 09/03/24 09:16 Flecainide Acetate 50 Mg Tablet PO 50 mg Q12HR KATHARINE Administration Furosemide 40 mg 08/31/24 09:00 08/31/24 16:39 Furosemide 40 Mg Tablet PO 40 mg BID KATHARINE Administration Glucagon 1 mg 08/30/24 20:29 Glucagon For Inj 1 Mg Vial IM PRN PRN Hypoglycemia Protocol Glucose 15 gm 08/30/24 20:29 Glucose Oral Gel 15 Gm Of Glucse In 37.5 Gm Tube PO PRN PRN Hypoglycemia Protocol Guaifenesin/Dextromethorphan 10 ml 09/02/24 09:57 Guaifenesin/Dextromethorphan 10 Ml Udc PO Q4H PRN Cough Hyoscyamine 0.125 mg 08/30/24 20:31 Hyoscyamine Sulfate 0.125 Mg Tablet PO BID PRN cramping Dextrose 1,000 mls @ 100 mls/hr 08/30/24 20:29 Dextrose 5% 1,000 Ml IVPB PRN PRN Hypoglycemia Protocol Insulin Aspart 3 - 6 units 08/31/24 08:00 09/03/24 09:18 Insulin Aspart (*Bkc) 100 Units/Ml SUB-Q Not Given TIDWM KATHARINE Protocol Insulin Glargine 20 units 08/31/24 09:00 09/03/24 09:18 Insulin Glargine (*Bkc) 100 Units/Ml SUB-Q 20 units Q12HR KATHARINE Administration Levofloxacin 750 mg 09/02/24 21:00 09/02/24 22:18 Levofloxacin 750 Mg Tablet PO 09/04/24 21:01 750 mg Q48H KATHARINE Administration Levothyroxine Sodium 75 mcg 08/31/24 06:30 09/03/24 05:31 Levothyroxine Sodium 75 Mcg Tablet PO 75 mcg DAILY@0630 KATHARINE Administration Loratadine 10 mg 08/30/24 21:00 09/02/24 22:17 Loratadine 10 Mg Tablet PO 10 mg QHS KATHARINE Administration Melatonin 5 mg 08/30/24 21:00 09/02/24 22:17 Melatonin 5 Mg Tablet PO 5 mg HS KATHARINE Administration Metronidazole 500 mg 09/02/24 14:00 09/03/24 05:32 Metronidazole 500 Mg Tablet PO 09/05/24 23:59 500 mg Q8HR KATHARINE Administration Nitroglycerin 0.4 mg 08/30/24 20:31 Nitroglycerin Sl 0.4 Mg Tablet SUBLINGUAL PRN PRN Chest Pain Pantoprazole Sodium 40 mg 08/31/24 09:00 08/31/24 08:36 Pantoprazole 40 Mg Tablet PO 40 mg DAILY KATHARINE Administration Pantoprazole Sodium 40 mg 09/01/24 09:00 09/03/24 09:15 Pantoprazole Sodium Iv 40 Mg Vial IV PUSH 40 mg QAM KATHARINE Administration Rosuvastatin Calcium 10 mg 08/30/24 21:00 09/02/24 22:17 Rosuvastatin 10 Mg Tablet PO 10 mg HS KATHARINE Administration Saccharomyces Boulardii 250 mg 08/31/24 09:00 09/03/24 09:17 Saccharomyces Boulardii 250 Mg Capsule PO 250 mg BID KATHARINE Administration Radiology Results: ITS Impressions Chest CT 08/31/24 21:01 IMPRESSION: 1. Left basilar atelectasis versus pneumonia. 2. Groundglass appearance in the upper lobe suggestive of atelectasis versus pneumonia. 3. 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 4. Cardiomegaly. Slightly enlarged lymph nodes in the prevascular area. 5. Nodule in the middle lobes. 6 months follow-up advised. Modified Barium Swallow 09/01/24 11:45 IMPRESSION: Pharyngeal dysphagia with laryngeal penetration with thin liquids which is likely at risk of but without evident aspiration. Please correlate with speech pathologist findings and specific feeding recommendations. Chest X-Ray 09/03/24 09:14 IMPRESSION: Small left-sided pleural effusion without focal infiltrate. Labs Labs: Laboratory Results - last 24 hr 09/02/24 09/02/24 09/02/24 12:07 17:01 19:16 WBC RBC Hgb Hct MCV MCH MCHC RDW Plt Count MPV Immature Gran % (Auto) Neut % (Auto) Lymph % (Auto) [place] % (Auto) Eos % (Auto) Baso % (Auto) Lymph # (Auto) [place] # (Auto) Eos # (Auto) Baso # (Auto) Abs Immat Gran (auto) Absolute Neuts (auto) Absolute Nucleated RBC Nucleated RBC % Sodium Potassium Chloride Carbon Dioxide Anion Gap BUN Creatinine Estim Creat Clear Calc Estimated GFR Glucose POC Capillary Glucose 114 H 150 H 131 H Calcium Magnesium Total Bilirubin AST ALT Alkaline Phosphatase Total Protein Albumin 09/03/24 09/03/24 04:45 07:36 WBC 14.5 H RBC 4.77 Hgb 12.3 Hct 40.9 MCV 85.7 MCH 25.8 L MCHC 30.1 L RDW 14.3 Plt Count 293 MPV 11.5 H Immature Gran % (Auto) 0.7 H Neut % (Auto) 63.0 Lymph % (Auto) 14.4 L [place] % (Auto) 16.0 H Eos % (Auto) 5.2 H Baso % (Auto) 0.7 Lymph # (Auto) 2.09 [place] # (Auto) 2.3 H Eos # (Auto) 0.8 H Baso # (Auto) 0.1 Abs Immat Gran (auto) 0.10 H Absolute Neuts (auto) 9.2 H Absolute Nucleated RBC 0.000 Nucleated RBC % 0.0 Sodium 136 L Potassium 3.4 Chloride 107 Carbon Dioxide 20 L Anion Gap 9 BUN 9 Creatinine 0.59 L Estim Creat Clear Calc 58 Estimated GFR > 60 Glucose 105 POC Capillary Glucose 109 H Calcium 9.8 Magnesium 2.3 Total Bilirubin 0.3 AST 29 ALT 16 Alkaline Phosphatase 70 Total Protein 7.0 Albumin 3.5 Quality VTE Prophylaxis VTE prophylaxis: pharmacologic ordered (Eliquis)
[2024-09-03 11:42] LABS: Glucose Point of Care 129 mg/dl (65-105)
--- NOTE | 2024-09-03 12:00 | PM.CNPUL ---
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 Recurrent pneumonias: Admitted 05/19/24 to 05/28/2024 Admitted 06/02/24 to 06/08/2024 Admitted 08/19/24 to 08/28/2024 COPD is written in the chart but he patient denies asthma or COPD, she is a never smoker and denies having PFTs previously. The patient's daughter states that she does not have COPD. Regarding her obstructive sleep apnea. The daughter tells me she had a sleep study at home 7 years ago and was prescribed a CPAP machine. She does not know the settings. She use this at home for years but did not tolerate it well and pulled the mask off. [facility] not used and the [facility] eventually said she would need a repeat sleep study for her to use the machine at that facility. The patient has chronic hypoxemic respiratory failure requiring 2 L nasal cannula. Patient recently admitted to the hospital from 08/19/2024 to 08/28/2024 for respiratory distress requiring BiPAP in the emergency room. She was treated for presumed aspiration pneumonia with ceftriaxone and azithromycin and then changed to Zosyn. She also had Pseudomonas in her urine. She was treated with IV Lasix. She had a swallow on study on 08/19/2024 with laryngeal penetration without aspiration. I was consulted during that hospitalization. This was part of my note from that admission. I suspect this represents recurrent aspiration pneumonia. I had a long discussion with her daughter Nancy. regarding maneuvers that could possibly help they did try chin tuck on her swallow with no improvement in the laryngeal penetration. I recommended the patient should be sitting upright for all meals and the daughter says frequently she is in a recliner or in a semi recumbent position when she eats. I have told them to ask for an order on her discharge papers to have her sit upright in wheelchair for all meals. We talked about NPO with PEG tube but this does not prevent aspiration of saliva and at this time the family does not wish for this. I suspect this will be a recurrent problem in the future. 08/30/24: Patient now readmitted on 08/30/2024 with respiratory distress requiring BiPAP in the emergency room. CT scan on 09/01 compared with 08/24/2024 shows a right upper lobe infiltrate has resolved, left lower lobe infiltrate has resolved, there is a new left upper lobe infiltrate and a new right upper lobe infiltrate that is inferior to the previous infiltrate on 08/24. She has been treated for aspiration pneumonia, fluid overload and bacterial pneumonia. 09/01/24: modified barium swallow: Laryngeal penetration without aspiration. Patient required coaching to clear her penetration. Impression: Mild to moderate dysphagia. Increased risk of aspiration with straw drinking, thin liquids. Recommendation level 6 soft and bite size diet with trial of thin liquids. No straws. Patient must be either out of bed or propped completely upright when eating drinking and during med pass. If any overt signs of aspiration are exhibited with a thin liquids coughing, throat clearing, gurgling wet vocal quality, then downgrade liquids to mildly thick liquids. 09/03/24: she has a persistent dry cough and is unable to expectorate any phlegm. Family in the room states that she was not coughing this heavily this morning and since then she has had lunch. Her oxygenation is slightly improved from her baseline. She does complain of shortness of breath. Currently, I believe patient had a recurrent aspiration event. She had worsening oxygenation and work of breathing requiring BiPAP. She is empirically treated with broad-spectrum antibiotics and today is day 5. Currently she is afebrile, chest x-ray shows no focal infiltrates, she chronically has a leukocytosis, and her oxygen is slightly improved at 1 L nasal cannula compared to her baseline 2 L nasal cannula. She has received doxycycline 1 dose on 08/30 and restarted on 09/03/2024. She received 1 dose of vancomycin on 08/30. She received cefepime from 08/30 through 09/02. She received Levaquin on 09/02/2024. She received meropenem on 09/03/2024. Would discontinue antibiotics on 09/05/2024 after 7 days. Patient has recurrent aspiration pneumonia, 4 hospitalizations in the last 4 months, chronic neurologic condition, poor cough and is unable to clear secretions. Two swallow studies demonstrate penetration but no nico aspiration and the patient required coaching to clear her penetrated material. Spoke with one of three daughters, Ange, and as I had communicated with a 2nd daughter and written in the chart last hospitalization, I suspect the patient has recurrent aspiration pneumonia and I suspect this will be a recurrent problem in the future. After discharge 1 week ago, it was recommended the patient sit up in a chair or wheelchair for all meals and the family tells me this is being done at [facility]. This should continue. She has shown no benefit with chin tuck in the past. She was receiving straw liquids at her living facility so that this is a potential area for improvement. We discussed PEG tube and I did not recommend PEG tube and the Ange was not interested in PEG tube placement. Other potentially modifiable respiratory issues include fluid overload and she has been diuresed and her BNP has improved and her chest x-ray does not show nico pulmonary edema. She has moderate aortic stenosis on echocardiogram from 09/01/24 and moderate to severe aortic stenosis on echocardiogram 11/17/2023. The patient already cannot clear mucus and I do not recommend suppressing her cough at this time. I will give her trial of guaifenesin 1200 mg p.o. b.i.d. to aid expectoration. Can attempt Cornet flutter valve. I recommended consultation with a hospice team to gather information about their services. I spoke with the bedside nurse who will call our care coordination team. Ange is waiting for her sister from [place] to come to [facility] and she will arrive the evening of 09/04/2024 and then all three daughters will meet with hospice. Discussed with Dr. Rivas, will sign off, call with questions. History of Present Illness History of Present Illness Consult date: 09/03/24 Chief complaint: Resp failure Narrative: 09/03/2024: This is a new pulmonary consult for Shortness of breath and cough at rest. 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 Recurrent pneumonias: Admitted 05/19/24 to 05/28/2024 Admitted 06/02/24 to 06/08/2024 Admitted 08/19/24 to 08/28/2024 COPD is written in the chart but he patient denies asthma or COPD, she is a never smoker and denies having PFTs previously. The patient's daughter states that she does not have COPD. Regarding her obstructive sleep apnea. The daughter tells me she had a sleep study at home 7 years ago and was prescribed a CPAP machine. She does not know the settings. She use this at home for years but did not tolerate it well and pulled the mask off. [facility] not used and the [facility] eventually said she would need a repeat sleep study for her to use the machine at that facility. The patient has chronic hypoxemic respiratory failure requiring 2 L nasal cannula. patient recently admitted to the hospital from 08/19/2024 to 08/28/2024 for respiratory distress requiring BiPAP in the emergency room. She was treated for presumed aspiration pneumonia with ceftriaxone and azithromycin and then changed to Zosyn. She also had Pseudomonas in her urine. She was treated with IV Lasix. She had a swallow on study on 08/19/2024 with laryngeal penetration without aspiration. I was consulted on 08/26/2024. this was my previous assessment and plan 08/26/2024: Today the patient tells me that she is breathing better than she arrived but not back to her normal. She has a persistent dry cough while she is eating breakfast. She has no hemoptysis. She is afebrile. White blood cell count is 13.7, creatinine is 0.7. BNP is 942 decreased from 17 20 on 08/20/2024. Procalcitonin is 0.1. Since 08/23/2024 she has diuresed 3 L and since admission she has diuresed 3.7 L. Her weight today is 83 kg. she did not wear positive airway pressure last night and currently she is on 2 L nasal cannula saturations 95%. Plan: Patient received ceftriaxone from 08/19/2024 through 08/22/2024 and received 5 days of azithromycin ending on 08/23/2024. Currently she is on Zosyn since 08/22, day 5. Her oxygenation has improved and she is back to her baseline of 2 L. she is afebrile. She has persistent leukocytosis but this is a chronic problem. would complete 2 more days of antibiotics. I suspect this represents recurrent aspiration pneumonia. I had a long discussion with her daughter Nancy. regarding maneuvers that could possibly help they did try chin tuck on her swallow with no improvement in the laryngeal penetration. I recommended the patient should be sitting upright for all meals and the daughter says frequently she is in a recliner or in a semi recumbent position when she eats. I have told them to ask for an order on her discharge papers to have her sit upright in wheelchair for all meals. We talked about NPO with PEG tube but this does not prevent aspiration of saliva and at this time the family does not wish for this. I suspect this will be a recurrent problem in the future. Patient is also improved her oxygenation with diuresis over the last 3 days. She has diuresed 3 L and she is now back to her baseline. Her BNP has improved today to 942. She was on 40 [facility] p.o. at the [facility] and this may need to be increased on discharged. Regarding her sleep apnea, the patient did not tolerate previous CPAP and has currently has been untreated for over a year and she would need an outpatient sleep study to requalify her for PAP if this were to be pursued. I discussed this with the family. Discharged on 08/28/24 on Lasix 40 p.o. b.i.d. 08/30/2024: Patient presented to the emergency room with shortness of breath. Earlier in the day she was doing well but developed shortness of breath. She was afebrile. Blood pressure 139/57, heart rate 79, 2 L nasal cannula saturations 95%. White blood cell count 17.7, creatinine 0.68, BNP 1040, troponin negative, influenza, RSV, COVID RT PCR studies negative. UA greater than 100 white blood cells, bacteria 3+ leukocyte Estrace positive. ABG on 2 L nasal cannula 7.42/39/75. Initially started on vancomycin and Zosyn and change to vancomycin, cefepime and Flagyl. Treated with BiPAP. MRSA swab negative. 08/31/2024: Chart states comfortable at bedside, still on BiPAP. Chest x-ray with small right effusion, congestion without focal infiltrates. White blood cell count 13.8. Creatinine 0.68. CRP less than 0.5. Procalcitonin 0.1 ABG on BiPAP 04/23 with 28% FiO2 was 7.42/40/98. 09/01/24: Progress note states now on room air. modified barium swallow, radiologist IMPRESSION: Pharyngeal dysphagia with laryngeal penetration with thin liquids which is likely at risk of but without evident aspiration. Please correlate with speech pathologist findings and specific feeding recommendations. Speech therapy modified barium swallow: Reduced laryngeal elevation as evidence by laryngeal penetration during the swallow with thin liquid via 5 mL and via the straw but it was not present with cup sips. Reduced tongue base retraction as evidence by vallecular residual, mild. Patient required a verbal cue to clear her throat and swallow which cleared the minimal residue residual and the penetration. No aspiration occurred but the risk is present. Impression: Mild to moderate dysphagia. Increased risk of aspiration with straw drinking, thin liquids. Recommendation level 6 soft and bite size diet with trial of thin liquids. No straws. Patient must be either out of bed or propped completely upright when eating drinking and during med pass. If any overt signs of aspiration are exhibited with a thin liquids coughing, throat clearing, gurgling wet vocal quality, then downgrade liquids to mildly thick liquids. 09/02/2024: patient coughing. Chest x-ray no acute changes. ABG on 2 L 7.42/35/69. 09/03/2024: Patient still complaining of shortness of breath and cough at rest. Will consult Pulmonary. Currently the patient is on 2 L nasal cannula with saturations 98%. last night the patient wore BiPAP from approximately 23:50 to 3:45. Settings: set rate of 18, breathing 20 2 times a minute, pressures 12/6, tidal volume 465 28% FiO2 with saturations 96%. White blood cell count 14.5, of note patient has a persistent leukocytosis over multiple CBCs dating back to 10/27/2022. Creatinine 0.59. Weight 77.5 with an admission weight of 82.4. Discharge weight on 08/27/2024 was 83 kg. Yesterday she diuresed 1.03 L. patient cannot give me a coherent history of the events that occurred. At time she tells me she is breathing her normal. At times she tells me it is hard for her to breathe and that this started 1 month ago. When I talked to her last hospitalization she said that she was breathing back to her normal prior to discharge. When I ask her how she is doing today compared to yesterday she says I do not know. She denies fever but sometimes states that she has sweating. When I enter the room she was on 2 L nasal cannula saturations 98%. I decreased her to room air and over the next 11 minutes saturations decreased to 89%. I placed her on 1 L nasal cannula her saturations were 94-95%. Chest x-ray 09/04/2023 she has a persistent dry cough and is unable to expectorate any phlegm. Family in the room states that she was not coughing this heavily this morning and she has had lunch since then. She did drink from a cup twice when I asked her to do this and she had no immediate worsening of her persistent cough. DATA: 09/01/2024: Summary 1. The left ventricle is normal in size with hyperdynamic systolic function. The left ventricular ejection fraction is visually estimated to be greater than 70%. 2. The right ventricle is normal in size and systolic function. 3. The left atrium is severely dilated. 4. The aortic valve is not well visualized however the gradients by Doppler suggests moderate aortic stenosis. There is also moderate aortic regurgitation. Left Ventricle The left ventricle is normal in size with hyperdynamic systolic function. The left ventricular ejection fraction is visually estimated to be greater than 70%. Right Ventricle The right ventricle is normal in size and systolic function. Left Atria The left atrium is severely dilated. Right Atria The right atrium is normal size. RVSP 18. 09/01/24: MODIFIED ESOPHAGRAM HISTORY: Dysphagia. TECHNIQUE: Modified barium esophagram was performed on 09/01/2024. I administered fluoroscopy and performed the exam with speech pathologist. Patient was seated for lateral fluoroscopic imaging for ingestion of thin liquids, pudding, solids and quantified amounts, followed by thin liquids in uncontrolled amounts. This was recorded on tape. A single fluoroscopic spot image was also recorded. The DAP for this procedure was 1.655 Gycm2. The amount of fluoroscopy time used during this procedure was 2.0 minutes. FINDINGS: Oral stage: Adequate function. Pharyngeal stage: There is reduced laryngeal elevation and tongue base retraction. There is mild vallecular residue which clears when patient swallows. There is laryngeal penetration which appears at risk of but without visualized aspiration with thin liquids especially with a straw. As at risk of. Cervical/esophageal stage: Adequate function. IMPRESSION: Pharyngeal dysphagia with laryngeal penetration with thin liquids which is likely at risk of but without evident aspiration. Please correlate with speech pathologist findings and specific feeding recommendations. 08/31/24: CT diagnostic chest wo con History: 83 years Female with . resp failure . Comparison: None. FINDINGS: VISUALIZED THORACIC INLET: Normal. MEDIASTINUM: Aorta/coronary arteries: Mild atheromatous disease. Heart/other: The heart is slightly enlarged. Lymph nodes: No mediastinal or hilar adenopathy. Prevascular lymph node is seen measuring 1.5 cm. Right hilar calcified lymph nodes. LUNGS: Left basilar atelectasis versus pneumonia. Groundglass appearance seen in the left and right upper lobes which may indicate atelectasis versus pneumonia. Narrowing of the trachea is seen suggestive of tracheomalacia. No pulmonary masses. No pneumothorax. Small opacity seen in the middle lobe suggestive of small nodule measuring 6 mm. 6 months follow-up CT is advised. VISUALIZED UPPER ABDOMEN: Status post cholecystectomy. Slightly thickened wall of the stomach. Otherwise, the visualized upper abdomen is normal. MUSCULOSKELETAL: Soft tissues: The superficial soft tissues are normal. Bones: Age appropriate degenerative changes of the spine. IMPRESSION: 1. Left basilar atelectasis versus pneumonia. 2. Groundglass appearance in the upper lobe suggestive of atelectasis versus pneumonia. 3. 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 4. Cardiomegaly. Slightly enlarged lymph nodes in the prevascular area. 5. Nodule in the middle lobes. 6 months follow-up advised. 08/24/24: EXAMINATION: CT diagnostic chest wo con INDICATION: Resp failure COMPARISON: None FINDINGS: Small left and very small right pleural effusions. Groundglass opacity and more dense consolidation in the basilar segments of the left lower lobe. Additional infrahilar consolidation in the right lower lobe. There is a region of crazy paving opacity with groundglass opacity and surrounding septal line thickening in the anterior segment of the right upper lobe. Additional mild groundglass opacities and some smooth septal line thickening at the apices of lungs. Megaly. Atherosclerotic coronary artery calcific location. Aortic valve and mitral annular calcific location. No pericardial effusion. Thoracic aorta is normal in caliber. Enlargement of the central pulmonary arteries consistent with pulmonary arterial hypertension. Calcified right hilar and mediastinal lymph nodes along with multiple tiny splenic calcifications consistent with old granulomatous disease. No pathologically enlarged thoracic lymphadenopathy. Cholecystectomy clips the gallbladder fossa. Mild thoracic spondylosis with bridging osteophytes at multiple levels consistent with diffuse idiopathic skeletal hyperostosis (DISH). IMPRESSION: 1. Consolidation regions of crazy paving pattern in the right upper and bilateral lower lobes concerning for pneumonia with differential including pulmonary edema and pulmonary infarct. 2. Small left and very small right pleural effusions. 2. Cardiomegaly. 12/24/2023: EXAMINATION: CT soft tissue neck chest w INDICATION: Neck and chest pain and swelling. COMPARISON: CT neck 11/13/2023 FINDINGS: CT NECK: There are likely changes of right ocular lens replacement surgery. There are no pathologically enlarged lymph nodes. There are nodules in the thyroid measuring up to 11 mm, likely not clinically significant. There is plaque in the proximal internal carotid arteries with velocities the degree of stenosis relative to normal distal artery lumen diameters. The pharynx and larynx are normal. The inflammation previously seen involving the cervical esophagus has resolved. There is moderate cervical spondylosis. CT CHEST: The lungs demonstrate mild atelectasis. There is mild bronchiectasis in the inferior lungs. Calcified right lung nodules and calcified right hilar and mediastinal lymph nodes are consistent with old granulomatous disease. No pleural effusion. The heart size is normal. There are coronary artery calcifications. No pericardial effusion. Calcifications in the liver and spleen are consistent with old granulomatous disease. There are bridging endplate osteophytes at multiple levels in the spine, consistent with diffuse idiopathic skeletal hyperostosis (DISH). IMPRESSION: 1. Interval resolution of the inflammation previously seen involving the cervical esophagus. 11/17/2023: Echo Summary 1. Complete two-dimensional, color flow and Doppler transthoracic echocardiogram is performed. 2. Concentric left ventricular hypertrophy with good systolic function and grade 1 diastolic noncompliance. 3. Left atrial enlargement. 4. Trace mitral regurgitation. 5. Moderate to severe aortic valve stenosis, valve area 1.1 cm2. Right Ventricle Right ventricular chamber dimension is normal. Left Atria Left atrial chamber dimension is mildly enlarged. Right Atria Right atrial chamber dimension is normal. Aortic Valve The aortic valve is trileaflet. There is moderate aortic valve sclerosis. There is moderate to severe aortic valve stenosis with a peak velocity of 329 cm/s, mean gradient of 24 mmHg, and aortic valve area of 1.4 cm2. Review of Systems Review of Systems: ROS unobtainable: Yes unobtainable due to mental status [facility] Past Medical History Medical History Chronic anticoagulation Paroxysmal atrial fibrillation Obstructive sleep apnea Noncompliant with CPAP. Transient ischemic attack Gastroesophageal reflux disease Familial spastic paraplegia Glaucoma History of pulmonary embolism Multiple sclerosis Suprapubic catheter in place. 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 History of suprapubic catheter History of hysterectomy Family History Family History Father Spastic paralysis Mother Breast cancer Social History Social History Social History: Surrogate medical decision maker: Ange Reyes or Nancy John, daughters. Code status: Full code. Smoking status: Never smoker Second hand tobacco smoke exposure: No Alcohol intake: never Substance use: never Substance use type: does not use Do You Feel Safe in your Home?: Yes Lack of Transportation: No Lack of Food: Never True Current Housing: I Have Housing Concerned About Future Housing: No Difficulty Paying Gas/Electric Bills: No Difficulty Paying for Meds: No Currently Unemployed: No Education: High School Diploma/GED Difficulty w/ Childcare or Family Care: No Living arrangements: [facility] Additional living arrangements comments: [facility]. Has 3 daughters. Additional occupation/education comments: [employer]. Spiritual care concerns: No Meds Home Medications and Allergies Home Medications ?Medication ?Instructions ?Recorded ?Confirmed ?Type cranberry extract 425 mg capsule 425 mg PO DAILY 03/11/22 08/30/24 History dorzolamide 2 % eye drops 2 drp EACH EYE TID 03/11/22 08/30/24 History levothyroxine 75 mcg tablet 75 mcg PO DAILY 03/11/22 08/30/24 History nitroglycerin 0.4 mg sublingual 0.4 mg sublingual PRN PRN Chest 03/11/22 08/30/24 History tablet Pain rosuvastatin 10 mg tablet 10 mg PO HS 03/11/22 08/30/24 History arginine-vitamin C-vitamin E oral 1 g PO BID 10/28/22 08/30/24 History 4.5 gram-156 mg/9.2 gram powder pkt (Arginaid) acetaminophen 500 mg capsule 1,000 mg PO Q6H PRN pain 11/03/22 08/30/24 History bromfenac 0.09 % eye drops 1 drp RIGHT EYE HS 11/03/22 08/30/24 History melatonin 5 mg tablet 5 mg PO HS #30 tabs 11/06/22 08/30/24 Rx Saccharomyces boulardii 250 mg 250 mg PO BID 05/11/23 08/30/24 History capsule (Florastor) acetic acid 0.25 % irrigation 30 ml irrigation EVERY OTHER DAY 05/11/23 08/30/24 History solution hyoscyamine sulfate 0.125 mg tablet 0.125 mg PO BID PRN cramping 05/11/23 08/30/24 History pantoprazole 40 mg tablet,delayed 40 mg PO DAILY 11/13/23 08/30/24 History release albuterol sulfate 90 mcg/actuation 2 puff inhalation PRN asthma 05/19/24 08/30/24 History aerosol inhaler ferrous sulfate 325 mg (65 mg 325 mg PO BID 05/19/24 08/30/24 History iron) tablet (Kassie-Time) insulin lispro 100 unit/mL 1 sliding scale dose subcut TID 05/19/24 08/30/24 History subcutaneous pen (Humalog KwikPen (U-100) Insulin) loratadine 10 mg tablet 10 mg PO QHS #20 tabs 05/28/24 08/30/24 Rx ipratropium 0.5 mg-albuterol 3 mg 3 ml inhalation TID 06/03/24 08/30/24 History (2.5 mg base)/3 mL nebulization soln apixaban 5 mg tablet (Eliquis) 5 mg PO Q12H #60 tabs 08/28/24 08/30/24 Rx flecainide 50 mg tablet 50 mg PO Q12H #60 tabs 08/28/24 08/30/24 Rx furosemide 40 mg tablet 40 mg PO BID #60 tabs 08/28/24 08/30/24 Rx escitalopram oxalate 10 mg tablet 10 mg PO DAILY 08/30/24 08/30/24 History (Lexapro) insulin glargine 100 unit/mL 20 unit subcut Q12H 08/30/24 08/30/24 History subcutaneous solution (Lantus U-100 Insulin) miconazole nitrate 2 % topical 1 applic topical BID fungal 08/31/24 08/31/24 History cream (Antifungal (miconazole)) infection nystatin 100,000 unit/gram topical 1 applic topical BID fungal 08/31/24 08/31/24 History powder infection Allergies Allergy/AdvReac Type Severity Reaction Status Date / Time black pepper Allergy Unknown Verified 08/30/24 21:38 diltiazem Allergy Unknown Verified 08/30/24 21:38 donepezil Allergy Unknown Verified 08/30/24 21:38 fluticasone Allergy Unknown Verified 08/30/24 21:38 metformin Allergy Unknown Verified 08/30/24 21:38 Vital Signs Vital Signs - 24 hr 09/02/24 13:38 09/02/24 16:00 09/02/24 20:07 Temperature 36.7 C Pulse Rate 69 65 79 Respiratory Rate 18 20 Blood Pressure 126/70 Pulse Oximetry 96 94 Oxygen Delivery Nasal Cannula Oxygen Flow Rate 2 Fraction of Inspired Oxygen 28 09/02/24 22:00 09/02/24 22:15 09/02/24 22:15 Temperature 36.9 C Pulse Rate 68 69 Respiratory Rate 16 Blood Pressure 138/52 L Pulse Oximetry 94 94 Oxygen Delivery Nasal Cannula Oxygen Flow Rate 2 Fraction of Inspired Oxygen 09/02/24 22:17 09/02/24 23:53 09/03/24 00:00 Temperature Pulse Rate 76 66 64 Respiratory Rate 22 H Blood Pressure Pulse Oximetry 96 Oxygen Delivery BiPAP Oxygen Flow Rate Fraction of Inspired Oxygen 09/03/24 04:00 09/03/24 06:00 09/03/24 08:09 Temperature 36.6 C Pulse Rate 62 64 62 Respiratory Rate 16 18 Blood Pressure 142/48 H Pulse Oximetry 94 98 Oxygen Delivery Nasal Cannula Oxygen Flow Rate 2 Fraction of Inspired Oxygen 09/03/24 09:16 Temperature Pulse Rate 71 Respiratory Rate Blood Pressure Pulse Oximetry Oxygen Delivery Oxygen Flow Rate Fraction of Inspired Oxygen Exam Const: General: healthy appearing and comfortable HENMT: Head: normal to inspection Ears: hearing grossly normal bilaterally Eyes: General: appearance normal, both eyes and all related structures Neck: Neck: normal visual inspection Chest: Chest palpation & inspection: normal inspection of the chest Resp: Effort & Inspection: normal respiratory effort and able to speak in complete sentences Auscultation: crackles, no rales, no rhonchi, no wheezes and lung sounds not diminished Other: bases, no wheezing Cardio: Jugular venous distension: no JVD GI: Inspection: normal to inspection GI Palp: No abdominal tenderness Skin: General skin exam: normal color Neuro: General: oriented to person, oriented to place and oriented to time Extrem: General: normal to inspection Psych: Appearance: grossly normal Results Laboratory Findings 09/03/24 04:45 09/03/24 04:45 ABG, PT/INR, D-dimer: ABG ABG pH 7.417 (7.350-7.450) 09/02/24 09:18 ABG pCO2 34.7 mmHg (35.0-45.0) L 09/02/24 09:18 ABG pO2 69.1 mmHg (80.0-100.0) L 09/02/24 09:18 ABG O2 Saturation 94.3 % (95.0-100.0) L 09/02/24 09:18 Abnormal lab findings: Abnormal Labs 08/30/24 08/30/24 08/30/24 12:48 14:30 14:31 WBC 17.7 H Hgb Hct MCH MCHC 31.5 L RDW MPV 11.1 H Immature Gran % (Auto) 0.6 H Lymph % (Auto) 16.6 L [place] % (Auto) 16.3 H Eos % (Auto) [place] # (Auto) 2.9 H Eos # (Auto) 0.7 H Abs Immat Gran (auto) 0.10 H Absolute Neuts (auto) 11.0 H ESR ABG pH ABG pCO2 ABG pO2 74.6 L ABG HCO3 ABG O2 Saturation Sodium Potassium Chloride Carbon Dioxide BUN 18 H Creatinine 0.68 L Glucose 123 H POC Capillary Glucose Hemoglobin A1c NT-Pro-B Natriuret Pep 1040 H Total Protein Albumin Urine Appearance Urine Protein Ur Blood (Man) Leukocyte Esterase Rfl Urine RBC Urine Yeast (Budding) 08/30/24 08/30/24 08/30/24 14:33 20:53 21:01 WBC Hgb Hct MCH MCHC RDW MPV Immature Gran % (Auto) Lymph % (Auto) [place] % (Auto) Eos % (Auto) [place] # (Auto) Eos # (Auto) Abs Immat Gran (auto) Absolute Neuts (auto) ESR 27 H ABG pH ABG pCO2 ABG pO2 ABG HCO3 ABG O2 Saturation Sodium Potassium Chloride Carbon Dioxide BUN Creatinine Glucose POC Capillary Glucose 136 H Hemoglobin A1c 7.2 H NT-Pro-B Natriuret Pep Total Protein Albumin Urine Appearance Cloudy H Urine Protein 2+ H Ur Blood (Man) 3+ H Leukocyte Esterase Rfl 3+ H Urine RBC >100 H Urine Yeast (Budding) Present H 08/31/24 08/31/24 08/31/24 04:18 11:42 16:40 WBC 13.8 H Hgb 11.5 L Hct MCH MCHC 30.9 L RDW MPV 11.6 H Immature Gran % (Auto) 0.7 H Lymph % (Auto) 10.4 L [place] % (Auto) 16.0 H Eos % (Auto) [place] # (Auto) 2.2 H Eos # (Auto) 0.4 H Abs Immat Gran (auto) 0.09 H Absolute Neuts (auto) 9.6 H ESR ABG pH ABG pCO2 ABG pO2 ABG HCO3 ABG O2 Saturation Sodium Potassium 2.9 L Chloride Carbon Dioxide BUN Creatinine 0.68 L Glucose POC Capillary Glucose 198 H 184 H Hemoglobin A1c NT-Pro-B Natriuret Pep Total Protein 6.0 L Albumin 3.4 L Urine Appearance Urine Protein Ur Blood (Man) Leukocyte Esterase Rfl Urine RBC Urine Yeast (Budding) 08/31/24 09/01/24 09/01/24 20:06 04:21 04:22 WBC 13.0 H Hgb 11.4 L Hct 36.7 L MCH 25.6 L MCHC 31.1 L RDW MPV 10.5 H Immature Gran % (Auto) Lymph % (Auto) 16.0 L [place] % (Auto) 16.4 H Eos % (Auto) 4.6 H [place] # (Auto) 2.1 H Eos # (Auto) 0.6 H Abs Immat Gran (auto) 0.06 H Absolute Neuts (auto) 8.0 H ESR ABG pH ABG pCO2 ABG pO2 ABG HCO3 ABG O2 Saturation Sodium Potassium 3.2 L Chloride Carbon Dioxide BUN Creatinine 0.69 L Glucose 115 H POC Capillary Glucose 145 H Hemoglobin A1c NT-Pro-B Natriuret Pep Total Protein 6.0 L Albumin Urine Appearance Urine Protein Ur Blood (Man) Leukocyte Esterase Rfl Urine RBC Urine Yeast (Budding) 09/01/24 09/01/24 09/01/24 04:48 07:08 11:03 WBC Hgb Hct MCH MCHC RDW MPV Immature Gran % (Auto) Lymph % (Auto) [place] % (Auto) Eos % (Auto) [place] # (Auto) Eos # (Auto) Abs Immat Gran (auto) Absolute Neuts (auto) ESR ABG pH 7.484 H ABG pCO2 30.5 L ABG pO2 137.5 H ABG HCO3 ABG O2 Saturation Sodium Potassium Chloride Carbon Dioxide BUN Creatinine Glucose POC Capillary Glucose 131 H 217 H Hemoglobin A1c NT-Pro-B Natriuret Pep Total Protein Albumin Urine Appearance Urine Protein Ur Blood (Man) Leukocyte Esterase Rfl Urine RBC Urine Yeast (Budding) 09/01/24 09/01/24 09/02/24 16:14 20:17 05:26 WBC 13.6 H Hgb Hct MCH MCHC 31.0 L RDW 14.6 H MPV 11.3 H Immature Gran % (Auto) Lymph % (Auto) 15.7 L [place] % (Auto) 17.1 H Eos % (Auto) 5.4 H [place] # (Auto) 2.3 H Eos # (Auto) 0.7 H Abs Immat Gran (auto) 0.06 H Absolute Neuts (auto) 8.2 H ESR ABG pH ABG pCO2 ABG pO2 ABG HCO3 ABG O2 Saturation Sodium Potassium Chloride Carbon Dioxide BUN Creatinine Glucose POC Capillary Glucose 165 H 181 H Hemoglobin A1c NT-Pro-B Natriuret Pep Total Protein Albumin Urine Appearance Urine Protein Ur Blood (Man) Leukocyte Esterase Rfl Urine RBC Urine Yeast (Budding) 09/02/24 09/02/24 09/02/24 05:56 07:17 09:18 WBC Hgb Hct MCH MCHC RDW MPV Immature Gran % (Auto) Lymph % (Auto) [place] % (Auto) Eos % (Auto) [place] # (Auto) Eos # (Auto) Abs Immat Gran (auto) Absolute Neuts (auto) ESR ABG pH ABG pCO2 34.7 L ABG pO2 69.1 L ABG HCO3 21.9 L ABG O2 Saturation 94.3 L Sodium Potassium 3.3 L Chloride 108 H Carbon Dioxide BUN Creatinine Glucose 134 H POC Capillary Glucose 132 H Hemoglobin A1c NT-Pro-B Natriuret Pep Total Protein Albumin Urine Appearance Urine Protein Ur Blood (Man) Leukocyte Esterase Rfl Urine RBC Urine Yeast (Budding) 09/02/24 09/02/24 09/02/24 12:07 17:01 19:16 WBC Hgb Hct MCH MCHC RDW MPV Immature Gran % (Auto) Lymph % (Auto) [place] % (Auto) Eos % (Auto) [place] # (Auto) Eos # (Auto) Abs Immat Gran (auto) Absolute Neuts (auto) ESR ABG pH ABG pCO2 ABG pO2 ABG HCO3 ABG O2 Saturation Sodium Potassium Chloride Carbon Dioxide BUN Creatinine Glucose POC Capillary Glucose 114 H 150 H 131 H Hemoglobin A1c NT-Pro-B Natriuret Pep Total Protein Albumin Urine Appearance Urine Protein Ur Blood (Man) Leukocyte Esterase Rfl Urine RBC Urine Yeast (Budding) 09/03/24 09/03/24 09/03/24 04:45 07:36 11:36 WBC 14.5 H Hgb Hct MCH 25.8 L MCHC 30.1 L RDW MPV 11.5 H Immature Gran % (Auto) 0.7 H Lymph % (Auto) 14.4 L [place] % (Auto) 16.0 H Eos % (Auto) 5.2 H [place] # (Auto) 2.3 H Eos # (Auto) 0.8 H Abs Immat Gran (auto) 0.10 H Absolute Neuts (auto) 9.2 H ESR ABG pH ABG pCO2 ABG pO2 ABG HCO3 ABG O2 Saturation Sodium 136 L Potassium Chloride Carbon Dioxide 20 L BUN Creatinine 0.59 L Glucose POC Capillary Glucose 109 H 129 H Hemoglobin A1c NT-Pro-B Natriuret Pep Total Protein Albumin Urine Appearance Urine Protein Ur Blood (Man) Leukocyte Esterase Rfl Urine RBC Urine Yeast (Budding) Diagnostic Findings Additional studies: ITS Impressions Chest X-Ray 08/30/24 13:29 IMPRESSION: Left basilar consolidation with patchy opacification of the periphery of the bilateral upper lung dave, right greater than left. Chest X-Ray 08/31/24 14:05 IMPRESSION: Small right-sided pleural effusion and mild pulmonary vascular congestion, without focal infiltrate. Chest CT 08/31/24 21:01 IMPRESSION: 1. Left basilar atelectasis versus pneumonia. 2. Groundglass appearance in the upper lobe suggestive of atelectasis versus pneumonia. 3. 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 4. Cardiomegaly. Slightly enlarged lymph nodes in the prevascular area. 5. Nodule in the middle lobes. 6 months follow-up advised. Modified Barium Swallow 09/01/24 11:45 IMPRESSION: Pharyngeal dysphagia with laryngeal penetration with thin liquids which is likely at risk of but without evident aspiration. Please correlate with speech pathologist findings and specific feeding recommendations. Chest X-Ray 09/02/24 09:53 IMPRESSION: No focal infiltrate or effusion. Chest X-Ray 09/03/24 09:14 IMPRESSION: Small left-sided pleural effusion without focal infiltrate.
[2024-09-03] MEDS: MEROPENEM 1 GM/NS 100 ML 1 GM/100 ML BAG IVPB ×2 (12:43→22:00)
[2024-09-03 13:08] LABS: NT Pro B Type Natriuretic Pept 804 pg/mL (19.9-100)
[2024-09-03] MEDS: DOXYCYCLINE 100 MG/NS 100 ML 100 MG/100 ML BAG IVPB ×2 (13:44→22:01)
[2024-09-03 17:12] LABS: Glucose Point of Care 104 mg/dl (65-105)
[2024-09-03 20:37] LABS: Glucose Point of Care 130 mg/dl (65-105)
[2024-09-03] MEDS: guaiFENesin 12 HR 600 MG TABCR 1200 MG PO (21:59)
[2024-09-03] MEDS: ROSUVASTATIN 10 MG TABLET PO (22:00)
[2024-09-03] MEDS: MELATONIN 5 MG TABLET PO (22:00)
[2024-09-03] MEDS: LORATADINE 10 MG TABLET PO (22:01)
[2024-09-04] VITALS (12 sets, daily range): BP systolic 125–132; BP diastolic 47–58; PULSE 58–74; RESP 16–18; TEMP 36.1–36.8; O2SAT 93–98
[2024-09-04 06:00] LABS: Basophils Absolute Auto 0.2 K/mm3 (0.0-0.1); Eosinophils Absolute Auto 0.6 K/mm3 (0-0.3); Eosinophils Percent Auto 3.8 % (0-4.4); Hematocrit 41.4 % (37.0-47.0); Hemoglobin 12.6 g/dL (12.0-15.0); Immature Granulocyte Absolute 0.14 K/mm3 (0.00-0.031); Immature Granulocyte Percent A 0.9 % (0-0.5); Lymphocytes Absolute Auto 2.72 K/mm3 (0.9-3.2); Lymphocytes Percent Auto 17.1 % (18.3-44.2); Mean Corpuscular HGB Conc 30.4 g/dl (32-36); Mean Corpuscular Volume 85.4 fl (80-100); Mean Platelet Volume 11.2 fl (7.4-10.4); Monocytes Absolute Auto 2.7 K/mm3 (0.1-0.6); Monocytes Percent Auto 16.7 % (2.6-8.5); Neutrophils Absolute Auto 9.6 K/mm3 (1.3-6.7); Neutrophils Percent Auto 60.5 % (45.5-73.1); Platelet Count Result 294 k/mm3 (150-375); Red Blood Count 4.85 M/mm3 (4.2-5.4); Red Cell Distribution Width 14.4 % (11.5-14.5); White Blood Count 15.9 K/mm3 (4.5-10.0)
[2024-09-04] MEDS: MEROPENEM 1 GM/NS 100 ML 1 GM/100 ML BAG IVPB ×3 (06:04→22:17)
[2024-09-04] MEDS: LEVOTHYROXINE SODIUM 75 MCG TABLET PO (06:04)
[2024-09-04 06:10] LABS: Lactic Acid Reflex 0.6 mmol/L (0.7-2.0)
[2024-09-04 06:12] LABS: Alanine Aminotransferase 17 U/L (6-35); Albumin Level 3.6 g/dL (3.5-5.1); Alkaline Phosphatase 72 U/L (38-126); Anion Gap 9 mmol/L (4-12); Aspartate Amino Transferase 31 U/L (14-36); Bilirubin,Total 0.4 mg/dL (0.2-1.3); Blood Urea Nitrogen 12 mg/dL (7-17); Calcium 9.9 mg/dL (8.4-10.2); Carbon Dioxide 19 mmol/L (22-30); Chloride 109 mmol/L (98-107); Estimated CRCL calculation 48 ml/min; Estimated Glomerular Filt Rate > 60; Glucose 90 mg/dL (65-110); Magnesium 2.5 mg/dL (1.6-2.3); Potassium 3.7 mmol/L (3.4-5.0); Sodium 137 mmol/L (137-145)
[2024-09-04 08:09] LABS: Glucose Point of Care 87 mg/dl (65-105)
[2024-09-04] MEDS: APIXABAN 5 MG TABLET PO ×2 (08:40→20:46)
[2024-09-04] MEDS: ESCITALOPRAM OXALATE 10 MG TABLET PO (08:41)
[2024-09-04] MEDS: FLECAINIDE ACETATE 50 MG TABLET PO ×2 (08:41→20:45)
[2024-09-04] MEDS: FERROUS SULFATE 325 MG TABLET DR PO ×2 (08:41→17:21)
[2024-09-04] MEDS: DOXYCYCLINE 100 MG/NS 100 ML 100 MG/100 ML BAG IVPB ×2 (08:41→20:46)
[2024-09-04] MEDS: SACCHAROMYCES BOULARDII 250 MG CAPSULE PO ×2 (08:42→17:21)
[2024-09-04] MEDS: PANTOPRAZOLE SODIUM IV 40 MG VIAL IV PUSH (08:42)
[2024-09-04] MEDS: guaiFENesin 12 HR 600 MG TABCR 1200 MG PO ×2 (08:42→20:43)
[2024-09-04] MEDS: INSULIN GLARGINE (*BKC) 100 UNITS/ML 20 UNITS SUB-Q ×2 (08:44→20:45)
[2024-09-04] MEDS: guaiFENesin/DEXTROMETHORPHAN 10 ML UDC PO (08:45)
[2024-09-04] MEDS: DORZOLAMIDE HCL 2% OPHTH DROPS 2 DROP EACH EYE ×3 (08:45→20:46)
[2024-09-04] MEDS: ACETAMINOPHEN 500 MG TABLET 1000 MG PO (08:51)
--- NOTE | 2024-09-04 11:45 | PM.IMPN ---
Progress Note: A&P Assessment and Plan (1) Respiratory failure: Qualifiers: Chronicity: acute on chronic Respiratory failure complication: hypoxia Qualified Code(s): J96.21 - Acute and chronic respiratory failure with hypoxia Code(s): J96.90 - Respiratory failure, unspecified, unspecified whether with hypoxia or hypercapnia Status: Acute Assessment and Plan: -Acute on chronic hypoxemic respiratory failure with history of hypercapnic respiratory failure admitted on BiPAP d/t work of breathing increased -Wears 2 LPM at baseline - Repeat CXR this morning showed small right pleural effusion and pulm vascular congestion -S/p BiPAP now on [address] chest showed Groundglass opacities in upper lobe ,ECHO showed normal exam Continue Lasix and Duonebs and monitor Pulmonology evaluated and noted he has seen patient prior admission and she is aspirating and may continue aspirating recommends completing antibiotics and family to consider hospice. (2) Aspiration pneumonia: Code(s): J69.0 - Pneumonitis due to inhalation of food and vomit Status: Acute Assessment and Plan: CT chest showed Groundglass opacities in upper lobe ,ECHO showed normal exam -MRSA nares negative -Patient recently admitted to hospital and lives in long-term for past few months Speech therapy performed MBS which showed risk of aspiration, diet modified -Completed Cefepime, Flagyl today 09/03/24 however due to worsening Dyspnea and Leukocytosis patient has been started on Meropenem and Doxycycline WBC 14.5 -->15.9 Continue above care (3) UTI (urinary tract infection): Qualifiers: Hematuria presence: with hematuria Urinary tract infection type: acute cystitis Qualified Code(s): N30.01 - Acute cystitis with hematuria Code(s): N39.0 - Urinary tract infection, site not specified Status: Acute Assessment and Plan: -Indwelling suprapubic catheter in place, changed by Urology on 08/26/24 during last hospitalization -Urine culture and blood cultures ordered -broad spectrum abx for now, cefepime, Flagyl -prior cultures positive including Pseudomonas aeruginosa, Proteus mirabilis and Klebsiella pneumoniae (4) Type 2 diabetes mellitus with diabetic polyneuropathy: Code(s): E11.42 - Type 2 diabetes mellitus with diabetic polyneuropathy Status: Acute Assessment and Plan: -Lantus 20 units Q12HR and sliding scale insulin -hypoglycemia protocol in place -A1c 7.2 -Diet: carb consistent with heart healthy, soft and bite sized with mildly thickened liquids (5) Hypertension: Code(s): I10 - Essential (primary) hypertension Status: Acute Assessment and Plan: -Blood pressure reviewed and stable -Continue home medications (6) Chronic anticoagulation: Code(s): 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 Subjective Date/time seen: 09/04/24 11:45 Interval history: Patient still coughing and mildly dyspneic pulidalia castro noted that he has seen patient prior admission and discussed with family and patient that patient has aspiration and may continue to have aspiration thus recommended completing abx and considering hospice care Family will meet today to discuss goals of care Review of Systems Review of Systems: ROS unobtainable: Yes unobtainable due to mental status (chronic confusion) Exam Narrative: APPEARANCE: coughing Head: atraumatic. EYES: EOMI, NOSE: Atraumatic NECK: Trachea midline RESPIRATORY: Diffuse wheezes/course sounds present, diminished in left base CARDIOVASCULAR: RRR, no peripheral edema ABDOMINAL: Soft nontender, ileostomy present with liquid stool output MUSCULOSKELETAl: No obvious deformities NEURO: Alert. Chronically confused. Moving 4/4 extremities (lowers much weaker than uppers) SKIN:: Warm, dry. Normal color Objective Data Vital Signs Vital Signs: Vital Signs - 24 hr 09/03/24 12:00 09/03/24 14:00 09/03/24 16:00 Temperature 97.6 F Pulse Rate 67 67 66 Respiratory Rate 18 Blood Pressure 134/42 L Pulse Oximetry 95 Oxygen Delivery Oxygen Flow Rate 09/03/24 22:00 09/03/24 22:00 09/03/24 22:35 Temperature 97.1 F L Pulse Rate 66 66 Respiratory Rate 18 Blood Pressure 124/77 Pulse Oximetry 96 96 Oxygen Delivery Nasal Cannula Oxygen Flow Rate 1 09/03/24 22:35 09/04/24 00:00 09/04/24 04:00 Temperature Pulse Rate 68 60 58 L Respiratory Rate Blood Pressure Pulse Oximetry Oxygen Delivery Oxygen Flow Rate 09/04/24 05:58 09/04/24 08:04 09/04/24 08:41 Temperature 97.6 F Pulse Rate 58 L 74 64 Respiratory Rate 16 Blood Pressure 132/47 L Pulse Oximetry 97 Oxygen Delivery Oxygen Flow Rate Intake/Output Intake/Output: Intake & Output 09/01/24 09/02/24 09/03/24 09/04/24 23:59 23:59 23:59 23:59 Intake Total 2932 106 6431 360 Output Total 2950 1475 1700 800 Balance -1470 -1035 150 -440 Meds/Results Medications: Active Medications Generic Name Dose Route Start Last Admin Trade Name Freq PRN Reason Stop Dose Admin Acetaminophen 1,000 mg 08/30/24 20:31 09/04/24 08:51 Acetaminophen 500 Mg Tablet PO 1,000 mg Q6H PRN Administration PAIN RATED 1-3 Albuterol 2.5 mg 09/02/24 10:01 Albuterol Sulfate Neb 2.5 Mg/3 Ml Inh INHALATION Q4HRT PRN Shortness Of Breath Apixaban 5 mg 08/30/24 21:00 09/04/24 08:40 Apixaban 5 Mg Tablet PO 5 mg Q12HR KATHARINE Administration Dextrose 12.5 gm 08/30/24 20:29 Dextrose 50% 25 Gm/50 Ml Syringe IV PUSH PRN PRN Hypoglycemia Protocol Dorzolamide HCl 2 drop 08/30/24 21:00 09/04/24 08:45 Dorzolamide Hcl 2% Ophth Drops EACH EYE 2 drop 0900,1200,2100 KATHARINE Administration Escitalopram Oxalate 10 mg 08/31/24 09:00 09/04/24 08:41 Escitalopram Oxalate 10 Mg Tablet PO 10 mg DAILY KATHARINE Administration Ferrous Sulfate 325 mg 08/31/24 09:00 09/04/24 08:41 Ferrous Sulfate [address] PO 325 mg BID KATHARINE Administration Flecainide Acetate 50 mg 08/30/24 21:00 09/04/24 08:41 Flecainide Acetate 50 Mg Tablet PO 50 mg Q12HR KATHARINE Administration Furosemide 40 mg 08/31/24 09:00 08/31/24 16:39 Furosemide 40 Mg Tablet PO 40 mg BID KATHARINE Administration Glucagon 1 mg 08/30/24 20:29 Glucagon For Inj 1 Mg Vial IM PRN PRN Hypoglycemia Protocol Glucose 15 gm 08/30/24 20:29 Glucose Oral Gel 15 Gm Of Glucse In 37.5 Gm Tube PO PRN PRN Hypoglycemia Protocol Guaifenesin 1,200 mg 09/03/24 21:00 09/04/24 08:42 Guaifenesin 12 Hr 600 Mg Tabcr PO 1,200 mg Q12HR KATHARINE Administration Guaifenesin/Dextromethorphan 10 ml 09/02/24 09:57 09/04/24 08:45 Guaifenesin/Dextromethorphan 10 Ml Udc PO 10 ml Q4H PRN Administration Cough Hyoscyamine 0.125 mg 08/30/24 20:31 Hyoscyamine Sulfate 0.125 Mg Tablet PO BID PRN cramping Dextrose 1,000 mls @ 100 mls/hr 08/30/24 20:29 Dextrose 5% 1,000 Ml IVPB PRN PRN Hypoglycemia Protocol Meropenem 1 gm in 100 mls @ 200 mls/hr 09/03/24 12:00 09/04/24 06:04 IVPB 200 mls/hr Q8HR KATHARINE Administration Doxycycline Hyclate 100 mg in 100 mls @ 100 mls/hr 09/03/24 11:05 09/04/24 08:41 Vibramycin 100 Mg/Ns 100 Ml IVPB 100 mls/hr Q12HR KATHARINE Administration Insulin Aspart 3 - 6 units 08/31/24 08:00 09/04/24 08:39 Insulin Aspart (*Bkc) 100 Units/Ml SUB-Q Not Given TIDWM KATHARINE Protocol Insulin Glargine 20 units 08/31/24 09:00 09/04/24 08:44 Insulin Glargine (*Bkc) 100 Units/Ml SUB-Q 20 units Q12HR KATHARINE Administration Levofloxacin 750 mg 09/02/24 21:00 09/02/24 22:18 Levofloxacin 750 Mg Tablet PO 09/04/24 21:01 750 mg Q48H KATHARINE Administration Levothyroxine Sodium 75 mcg 08/31/24 06:30 09/04/24 06:04 Levothyroxine Sodium 75 Mcg Tablet PO 75 mcg DAILY@0630 KATHARINE Administration Loratadine 10 mg 08/30/24 21:00 09/03/24 22:01 Loratadine 10 Mg Tablet PO 10 mg QHS KATHARINE Administration Melatonin 5 mg 08/30/24 21:00 09/03/24 22:00 Melatonin 5 Mg Tablet PO 5 mg HS KATHARINE Administration Nitroglycerin 0.4 mg 08/30/24 20:31 Nitroglycerin Sl 0.4 Mg Tablet SUBLINGUAL PRN PRN Chest Pain Pantoprazole Sodium 40 mg 08/31/24 09:00 08/31/24 08:36 Pantoprazole 40 Mg Tablet PO 40 mg DAILY KATHARINE Administration Pantoprazole Sodium 40 mg 09/01/24 09:00 09/04/24 08:42 Pantoprazole Sodium Iv 40 Mg Vial IV PUSH 40 mg QAM KATHARINE Administration Rosuvastatin Calcium 10 mg 08/30/24 21:00 09/03/24 22:00 Rosuvastatin 10 Mg Tablet PO 10 mg HS KATHARINE Administration Saccharomyces Boulardii 250 mg 08/31/24 09:00 09/04/24 08:42 Saccharomyces Boulardii 250 Mg Capsule PO 250 mg BID KATHARINE Administration Radiology Results: ITS Impressions Chest CT 08/31/24 21:01 IMPRESSION: 1. Left basilar atelectasis versus pneumonia. 2. Groundglass appearance in the upper lobe suggestive of atelectasis versus pneumonia. 3. 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 4. Cardiomegaly. Slightly enlarged lymph nodes in the prevascular area. 5. Nodule in the middle lobes. 6 months follow-up advised. Modified Barium Swallow 09/01/24 11:45 IMPRESSION: Pharyngeal dysphagia with laryngeal penetration with thin liquids which is likely at risk of but without evident aspiration. Please correlate with speech pathologist findings and specific feeding recommendations. Chest X-Ray 09/03/24 09:14 IMPRESSION: Small left-sided pleural effusion without focal infiltrate. Labs Labs: Laboratory Results - last 24 hr 09/03/24 09/03/24 09/03/24 04:39 17:05 19:52 WBC RBC Hgb Hct MCV MCH MCHC RDW Plt Count MPV Immature Gran % (Auto) Neut % (Auto) Lymph % (Auto) [place] % (Auto) Eos % (Auto) Baso % (Auto) Lymph # (Auto) [place] # (Auto) Eos # (Auto) Baso # (Auto) Abs Immat Gran (auto) Absolute Neuts (auto) Absolute Nucleated RBC Nucleated RBC % Sodium Potassium Chloride Carbon Dioxide Anion Gap BUN Creatinine Estim Creat Clear Calc Estimated GFR Glucose POC Capillary Glucose 104 130 H Lactic Acid Calcium Magnesium Total Bilirubin AST ALT Alkaline Phosphatase NT-Pro-B Natriuret Pep 804 H Total Protein Albumin 09/04/24 09/04/24 05:24 08:00 WBC 15.9 H RBC 4.85 Hgb 12.6 Hct 41.4 MCV 85.4 MCH 26.0 MCHC 30.4 L RDW 14.4 Plt Count 294 MPV 11.2 H Immature Gran % (Auto) 0.9 H Neut % (Auto) 60.5 Lymph % (Auto) 17.1 L [place] % (Auto) 16.7 H Eos % (Auto) 3.8 Baso % (Auto) 1.0 Lymph # (Auto) 2.72 [place] # (Auto) 2.7 H Eos # (Auto) 0.6 H Baso # (Auto) 0.2 H Abs Immat Gran (auto) 0.14 H Absolute Neuts (auto) 9.6 H Absolute Nucleated RBC 0.000 Nucleated RBC % 0.0 Sodium 137 Potassium 3.7 Chloride 109 H Carbon Dioxide 19 L Anion Gap 9 BUN 12 Creatinine 0.72 Estim Creat Clear Calc 48 Estimated GFR > 60 Glucose 90 POC Capillary Glucose 87 Lactic Acid 0.6 L Calcium 9.9 Magnesium 2.5 H Total Bilirubin 0.4 AST 31 ALT 17 Alkaline Phosphatase 72 NT-Pro-B Natriuret Pep Total Protein 7.0 Albumin 3.6 Quality VTE Prophylaxis VTE prophylaxis: pharmacologic ordered (Eliquis)
[2024-09-04 12:20] LABS: Glucose Point of Care 95 mg/dl (65-105)
[2024-09-04 17:19] LABS: Glucose Point of Care 159 mg/dl (65-105)
[2024-09-04] MEDS: ROSUVASTATIN 10 MG TABLET PO (20:42)
[2024-09-04] MEDS: LORATADINE 10 MG TABLET PO (20:43)
[2024-09-04] MEDS: MELATONIN 5 MG TABLET PO (20:44)
[2024-09-04] MEDS: levoFLOXacin 750 MG TABLET PO (20:44)
[2024-09-05] VITALS (10 sets, daily range): BP systolic 126–135; BP diastolic 46–82; PULSE 56–70; RESP 18; TEMP 36.1–36.9; O2SAT 97–98
[2024-09-05 00:41] LABS: Glucose Point of Care 119 mg/dl (65-105)
[2024-09-05 05:23] LABS: Basophils Absolute Auto 0.1 K/mm3 (0.0-0.1); Basophils Percent Auto 0.7 % (0.2-1.2); Eosinophils Absolute Auto 0.5 K/mm3 (0-0.3); Eosinophils Percent Auto 3.2 % (0-4.4); Hemoglobin 12.9 g/dL (12.0-15.0); Immature Granulocyte Absolute 0.15 K/mm3 (0.00-0.031); Lymphocytes Absolute Auto 2.35 K/mm3 (0.9-3.2); Lymphocytes Percent Auto 16.3 % (18.3-44.2); Mean Corpuscular HGB Conc 30.7 g/dl (32-36); Mean Corpuscular Volume 84.5 fl (80-100); Mean Platelet Volume 10.9 fl (7.4-10.4); Monocytes Absolute Auto 2.4 K/mm3 (0.1-0.6); Monocytes Percent Auto 16.4 % (2.6-8.5); Neutrophils Percent Auto 62.4 % (45.5-73.1); Platelet Count Result 268 k/mm3 (150-375); Red Blood Count 4.97 M/mm3 (4.2-5.4); Red Cell Distribution Width 14.4 % (11.5-14.5); White Blood Count 14.4 K/mm3 (4.5-10.0)
[2024-09-05 05:32] LABS: Alanine Aminotransferase 18 U/L (6-35); Albumin Level 3.4 g/dL (3.5-5.1); Alkaline Phosphatase 65 U/L (38-126); Anion Gap 8 mmol/L (4-12); Aspartate Amino Transferase 29 U/L (14-36); Bilirubin,Total 0.3 mg/dL (0.2-1.3); Blood Urea Nitrogen 11 mg/dL (7-17); Calcium 9.9 mg/dL (8.4-10.2); Carbon Dioxide 18 mmol/L (22-30); Chloride 111 mmol/L (98-107); Estimated CRCL calculation 56 ml/min; Estimated Glomerular Filt Rate > 60; Glucose 85 mg/dL (65-110); Magnesium 2.3 mg/dL (1.6-2.3); Potassium 4.1 mmol/L (3.4-5.0); Sodium 137 mmol/L (137-145)
[2024-09-05] MEDS: LEVOTHYROXINE SODIUM 75 MCG TABLET PO (06:15)
[2024-09-05] MEDS: MEROPENEM 1 GM/NS 100 ML 1 GM/100 ML BAG IVPB ×3 (06:21→21:25)
[2024-09-05 08:54] LABS: Glucose Point of Care 78 mg/dl (65-105)
[2024-09-05] MEDS: ESCITALOPRAM OXALATE 10 MG TABLET PO (10:14)
[2024-09-05] MEDS: FERROUS SULFATE 325 MG TABLET DR PO ×2 (10:14→16:54)
[2024-09-05] MEDS: guaiFENesin 12 HR 600 MG TABCR 1200 MG PO ×2 (10:14→21:24)
[2024-09-05] MEDS: PANTOPRAZOLE SODIUM IV 40 MG VIAL IV PUSH (10:15)
[2024-09-05] MEDS: APIXABAN 5 MG TABLET PO ×2 (10:15→21:24)
[2024-09-05] MEDS: FLECAINIDE ACETATE 50 MG TABLET PO ×2 (10:15→21:24)
[2024-09-05] MEDS: SACCHAROMYCES BOULARDII 250 MG CAPSULE PO ×2 (10:15→16:54)
[2024-09-05] MEDS: DOXYCYCLINE 100 MG/NS 100 ML 100 MG/100 ML BAG IVPB ×2 (10:16→21:23)
[2024-09-05] MEDS: DORZOLAMIDE HCL 2% OPHTH DROPS 2 DROP EACH EYE ×3 (10:16→21:32)
[2024-09-05] MEDS: INSULIN GLARGINE (*BKC) 100 UNITS/ML 20 UNITS SUB-Q (10:17)
[2024-09-05 12:04] LABS: Glucose Point of Care 228 mg/dl (65-105)
[2024-09-05] MEDS: INSULIN ASPART (*BKC) 100 UNITS/ML SUB-Q (12:33)
--- NOTE | 2024-09-05 12:43 | P.PNIM_ITS ---
Progress Note: A&P Assessment and Plan (1) Respiratory failure: Qualifiers: Chronicity: acute on chronic Respiratory failure complication: hypoxia Qualified Code(s): J96.21 - Acute and chronic respiratory failure with hypoxia Code(s): J96.90 - Respiratory failure, unspecified, unspecified whether with hypoxia or hypercapnia Status: Acute Assessment and Plan: -Acute on chronic hypoxemic respiratory failure with history of hypercapnic respiratory failure admitted on BiPAP d/t work of breathing increased -Wears 2 LPM at baseline - Repeat CXR this morning showed small right pleural effusion and pulm vascular congestion -S/p BiPAP now on [address] chest showed Groundglass opacities in upper lobe ,ECHO showed normal exam Continue Lasix and Duonebs and monitor Pulmonology evaluated and noted he has seen patient prior admission and she is aspirating and may continue aspirating recommends completing antibiotics and family to consider hospice. (2) Aspiration pneumonia: Code(s): J69.0 - Pneumonitis due to inhalation of food and vomit Status: Acute Assessment and Plan: CT chest showed Groundglass opacities in upper lobe ,ECHO showed normal exam -MRSA nares negative -Patient recently admitted to hospital and lives in long term for past few months Speech therapy performed MBS which showed risk of aspiration, diet modified -Completed Cefepime, Flagyl today 09/03/24 however due to worsening Dyspnea and Leukocytosis patient has been started on Meropenem and Doxycycline WBC 14.5 -->15.9 Continue above care (3) UTI (urinary tract infection): Qualifiers: Hematuria presence: with hematuria Urinary tract infection type: acute cystitis Qualified Code(s): N30.01 - Acute cystitis with hematuria Code(s): N39.0 - Urinary tract infection, site not specified Status: Acute Assessment and Plan: -Indwelling suprapubic catheter in place, changed by Urology on 08/26/24 during last hospitalization -Urine culture and blood cultures ordered -broad spectrum abx for now, cefepime, Flagyl -prior cultures positive including Pseudomonas aeruginosa, Proteus mirabilis and Klebsiella pneumoniae (4) Type 2 diabetes mellitus with diabetic polyneuropathy: Code(s): E11.42 - Type 2 diabetes mellitus with diabetic polyneuropathy Status: Acute Assessment and Plan: -Lantus 20 units Q12HR and sliding scale insulin -hypoglycemia protocol in place -A1c 7.2 -Diet: carb consistent with heart healthy, soft and bite sized with mildly thickened liquids (5) Hypertension: Code(s): I10 - Essential (primary) hypertension Status: Acute Assessment and Plan: -Blood pressure reviewed and stable -Continue home medications (6) Chronic anticoagulation: Code(s): Z79.01 - 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 Status: Acute Assessment and Plan: -On Eliquis 5 mg BID due to history of paroxysmal atrial fibrillation Plan -Speech therapy consulted again -DNR/DNI, family not ready for comfort care yet -Ileostomy present with liquid stool output -Suprapubic catheter Family to discuss hospice Subjective Date/time seen: 09/05/24 12:43 Interval history: stable at bedside and daughter was present they are yet to discuss amongst themselves about hospice Also offered postpyloric feeding tube, although i stated it may have limited benefits as patient may still have aspiration from saliva Review of Systems Review of Systems: ROS unobtainable: Yes unobtainable due to mental status (chronic confusion) Exam Narrative: APPEARANCE: coughing Head: atraumatic. EYES: EOMI, NOSE: Atraumatic NECK: Trachea midline RESPIRATORY: Diffuse wheezes/course sounds present, diminished in left base CARDIOVASCULAR: RRR, no peripheral edema ABDOMINAL: Soft nontender, ileostomy present with liquid stool output MUSCULOSKELETAl: No obvious deformities NEURO: Alert. Chronically confused. Moving 4/4 extremities (lowers much weaker than uppers) SKIN:: Warm, dry. Normal color Objective Data Vital Signs Vital Signs: Vital Signs - 24 hr 09/04/24 14:00 09/04/24 16:04 09/04/24 20:00 Temperature 97.0 F L Pulse Rate 62 63 Respiratory Rate 16 Blood Pressure 132/48 L Pulse Oximetry 97 98 Oxygen Delivery Nasal Cannula Oxygen Flow Rate 2 09/04/24 20:00 09/04/24 20:45 09/04/24 22:00 Temperature 98.2 F Pulse Rate 66 64 65 Respiratory Rate 18 Blood Pressure 125/58 L Pulse Oximetry 93 Oxygen Delivery Oxygen Flow Rate 09/05/24 00:00 09/05/24 04:00 09/05/24 06:00 Temperature 98.4 F Pulse Rate 56 L 56 L 60 Respiratory Rate 18 Blood Pressure 126/46 L Pulse Oximetry 97 Oxygen Delivery Oxygen Flow Rate 09/05/24 08:00 09/05/24 10:15 09/05/24 10:15 Temperature Pulse Rate 61 70 Respiratory Rate Blood Pressure Pulse Oximetry 97 Oxygen Delivery Nasal Cannula Oxygen Flow Rate 2 Intake/Output Intake/Output: Intake & Output 09/02/24 09/03/24 09/04/24 09/05/24 23:59 23:59 23:59 23:59 Intake Total 440 1850 1460 820 Output Total 1475 1700 1950 950 Balance -1035 150 490 -130 Meds/Results Medications: Active Medications Generic Name Dose Route Start Last Admin Trade Name Freq PRN Reason Stop Dose Admin Acetaminophen 1,000 mg 08/30/24 20:31 09/04/24 08:51 Acetaminophen 500 Mg Tablet PO 1,000 mg Q6H PRN Administration PAIN RATED 1-3 Albuterol 2.5 mg 09/02/24 10:01 Albuterol Sulfate Neb 2.5 Mg/3 Ml Inh INHALATION Q4HRT PRN Shortness Of Breath Apixaban 5 mg 08/30/24 21:00 09/05/24 10:15 Apixaban 5 Mg Tablet PO 5 mg Q12HR KATHARINE Administration Dextrose 12.5 gm 08/30/24 20:29 Dextrose 50% 25 Gm/50 Ml Syringe IV PUSH PRN PRN Hypoglycemia Protocol Dorzolamide HCl 2 drop 08/30/24 21:00 09/05/24 12:33 Dorzolamide Hcl 2% Ophth Drops EACH EYE 2 drop 0900,1200,2100 KATHARINE Administration Escitalopram Oxalate 10 mg 08/31/24 09:00 09/05/24 10:14 Escitalopram Oxalate 10 Mg Tablet PO 10 mg DAILY KATHARINE Administration Ferrous Sulfate 325 mg 08/31/24 09:00 09/05/24 10:14 Ferrous Sulfate [address] PO 325 mg BID KATHARINE Administration Flecainide Acetate 50 mg 08/30/24 21:00 09/05/24 10:15 Flecainide Acetate 50 Mg Tablet PO 50 mg Q12HR KATHARINE Administration Furosemide 40 mg 08/31/24 09:00 08/31/24 16:39 Furosemide 40 Mg Tablet PO 40 mg BID KATHARINE Administration Glucagon 1 mg 08/30/24 20:29 Glucagon For Inj 1 Mg Vial IM PRN PRN Hypoglycemia Protocol Glucose 15 gm 08/30/24 20:29 Glucose Oral Gel 15 Gm Of Glucse In 37.5 Gm Tube PO PRN PRN Hypoglycemia Protocol Guaifenesin 1,200 mg 09/03/24 21:00 09/05/24 10:14 Guaifenesin 12 Hr 600 Mg Tabcr PO 1,200 mg Q12HR KATHARINE Administration Guaifenesin/Dextromethorphan 10 ml 09/02/24 09:57 09/04/24 08:45 Guaifenesin/Dextromethorphan 10 Ml Udc PO 10 ml Q4H PRN Administration Cough Hyoscyamine 0.125 mg 08/30/24 20:31 Hyoscyamine Sulfate 0.125 Mg Tablet PO BID PRN cramping Dextrose 1,000 mls @ 100 mls/hr 08/30/24 20:29 Dextrose 5% 1,000 Ml IVPB PRN PRN Hypoglycemia Protocol Meropenem 1 gm in 100 mls @ 200 mls/hr 09/03/24 12:00 09/05/24 06:21 IVPB 200 mls/hr Q8HR KATHARINE Administration Doxycycline Hyclate 100 mg in 100 mls @ 100 mls/hr 09/03/24 11:05 09/05/24 11:16 Vibramycin 100 Mg/Ns 100 Ml IVPB Infused Q12HR KATHARINE Infusion Insulin Aspart 3 - 6 units 08/31/24 08:00 09/05/24 12:33 Insulin Aspart (*Bkc) 100 Units/Ml SUB-Q 3 units TIDWM KATHARINE Administration Protocol Insulin Glargine 20 units 08/31/24 09:00 09/05/24 10:17 Insulin Glargine (*Bkc) 100 Units/Ml SUB-Q 20 units Q12HR KATHARINE Administration Levothyroxine Sodium 75 mcg 08/31/24 06:30 09/05/24 06:15 Levothyroxine Sodium 75 Mcg Tablet PO 75 mcg DAILY@0630 KATHARINE Administration Loratadine 10 mg 08/30/24 21:00 09/04/24 20:43 Loratadine 10 Mg Tablet PO 10 mg QHS KATHARINE Administration Melatonin 5 mg 08/30/24 21:00 09/04/24 20:44 Melatonin 5 Mg Tablet PO 5 mg HS KATHARINE Administration Nitroglycerin 0.4 mg 08/30/24 20:31 Nitroglycerin Sl 0.4 Mg Tablet SUBLINGUAL PRN PRN Chest Pain Pantoprazole Sodium 40 mg 08/31/24 09:00 08/31/24 08:36 Pantoprazole 40 Mg Tablet PO 40 mg DAILY KATHARINE Administration Pantoprazole Sodium 40 mg 09/01/24 09:00 09/05/24 10:15 Pantoprazole Sodium Iv 40 Mg Vial IV PUSH 40 mg QAM KATHARINE Administration Rosuvastatin Calcium 10 mg 08/30/24 21:00 09/04/24 20:42 Rosuvastatin 10 Mg Tablet PO 10 mg HS KATHARINE Administration Saccharomyces Boulardii 250 mg 08/31/24 09:00 09/05/24 10:15 Saccharomyces Boulardii 250 Mg Capsule PO 250 mg BID KATHARINE Administration Radiology Results: ITS Impressions Chest CT 08/31/24 21:01 IMPRESSION: 1. Left basilar atelectasis versus pneumonia. 2. Groundglass appearance in the upper lobe suggestive of atelectasis versus pneumonia. 3. 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 4. Cardiomegaly. Slightly enlarged lymph nodes in the prevascular area. 5. Nodule in the middle lobes. 6 months follow-up advised. Modified Barium Swallow 09/01/24 11:45 IMPRESSION: Pharyngeal dysphagia with laryngeal penetration with thin liquids which is likely at risk of but without evident aspiration. Please correlate with speech pathologist findings and specific feeding recommendations. Chest X-Ray 09/03/24 09:14 IMPRESSION: Small left-sided pleural effusion without focal infiltrate. Labs Labs: Laboratory Results - last 24 hr 09/04/24 09/04/24 09/05/24 17:15 23:35 05:07 WBC 14.4 H RBC 4.97 Hgb 12.9 Hct 42.0 MCV 84.5 MCH 26.0 MCHC 30.7 L RDW 14.4 Plt Count 268 MPV 10.9 H Immature Gran % (Auto) 1.0 H Neut % (Auto) 62.4 Lymph % (Auto) 16.3 L [place] % (Auto) 16.4 H Eos % (Auto) 3.2 Baso % (Auto) 0.7 Lymph # (Auto) 2.35 [place] # (Auto) 2.4 H Eos # (Auto) 0.5 H Baso # (Auto) 0.1 Abs Immat Gran (auto) 0.15 H Absolute Neuts (auto) 9.0 H Absolute Nucleated RBC 0.000 Nucleated RBC % 0.0 Sodium 137 Potassium 4.1 Chloride 111 H Carbon Dioxide 18 L Anion Gap 8 BUN 11 Creatinine 0.61 L Estim Creat Clear Calc 56 Estimated GFR > 60 Glucose 85 POC Capillary Glucose 159 H 119 H Calcium 9.9 Magnesium 2.3 Total Bilirubin 0.3 AST 29 ALT 18 Alkaline Phosphatase 65 Total Protein 7.0 Albumin 3.4 L 09/05/24 09/05/24 08:28 12:02 WBC RBC Hgb Hct MCV MCH MCHC RDW Plt Count MPV Immature Gran % (Auto) Neut % (Auto) Lymph % (Auto) [place] % (Auto) Eos % (Auto) Baso % (Auto) Lymph # (Auto) [place] # (Auto) Eos # (Auto) Baso # (Auto) Abs Immat Gran (auto) Absolute Neuts (auto) Absolute Nucleated RBC Nucleated RBC % Sodium Potassium Chloride Carbon Dioxide Anion Gap BUN Creatinine Estim Creat Clear Calc Estimated GFR Glucose POC Capillary Glucose 78 228 H Calcium Magnesium Total Bilirubin AST ALT Alkaline Phosphatase Total Protein Albumin Quality VTE Prophylaxis VTE prophylaxis: pharmacologic ordered (Eliquis)
[2024-09-05 16:37] LABS: Glucose Point of Care 108 mg/dl (65-105)
[2024-09-05] MEDS: LORATADINE 10 MG TABLET PO (21:24)
[2024-09-05] MEDS: MELATONIN 5 MG TABLET PO (21:24)
[2024-09-05] MEDS: ROSUVASTATIN 10 MG TABLET PO (21:24)
[2024-09-05 22:06] LABS: Glucose Point of Care 91 mg/dl (65-105)
[2024-09-06] VITALS (10 sets, daily range): BP systolic 128–140; BP diastolic 53–79; PULSE 54–74; RESP 18; TEMP 36.3; O2SAT 95–97
[2024-09-06] MEDS: LEVOTHYROXINE SODIUM 75 MCG TABLET PO (05:30)
[2024-09-06] MEDS: MEROPENEM 1 GM/NS 100 ML 1 GM/100 ML BAG IVPB ×2 (05:31→13:16)
[2024-09-06 05:32] LABS: Basophils Absolute Auto 0.1 K/mm3 (0.0-0.1); Basophils Percent Auto 0.7 % (0.2-1.2); Eosinophils Absolute Auto 0.6 K/mm3 (0-0.3); Eosinophils Percent Auto 4.1 % (0-4.4); Hematocrit 40.5 % (37.0-47.0); Hemoglobin 12.5 g/dL (12.0-15.0); Immature Granulocyte Absolute 0.13 K/mm3 (0.00-0.031); Lymphocytes Absolute Auto 2.52 K/mm3 (0.9-3.2); Lymphocytes Percent Auto 18.6 % (18.3-44.2); Mean Corpuscular HGB Conc 30.9 g/dl (32-36); Mean Corpuscular Hemoglobin 25.8 pg (26-34); Mean Corpuscular Volume 83.7 fl (80-100); Mean Platelet Volume 11.2 fl (7.4-10.4); Monocytes Absolute Auto 2.6 K/mm3 (0.1-0.6); Monocytes Percent Auto 19.1 % (2.6-8.5); Neutrophils Absolute Auto 7.7 K/mm3 (1.3-6.7); Neutrophils Percent Auto 56.5 % (45.5-73.1); Platelet Count Result 261 k/mm3 (150-375); Red Blood Count 4.84 M/mm3 (4.2-5.4); Red Cell Distribution Width 14.6 % (11.5-14.5); White Blood Count 13.5 K/mm3 (4.5-10.0)
[2024-09-06 05:46] LABS: Alanine Aminotransferase 20 U/L (6-35); Albumin Level 3.3 g/dL (3.5-5.1); Alkaline Phosphatase 61 U/L (38-126); Anion Gap 9 mmol/L (4-12); Aspartate Amino Transferase 35 U/L (14-36); Bilirubin,Total 0.2 mg/dL (0.2-1.3); Blood Urea Nitrogen 9 mg/dL (7-17); Calcium 9.9 mg/dL (8.4-10.2); Carbon Dioxide 18 mmol/L (22-30); Chloride 113 mmol/L (98-107); Estimated CRCL calculation 60 ml/min; Estimated Glomerular Filt Rate > 60; Glucose 74 mg/dL (65-110); Magnesium 2.3 mg/dL (1.6-2.3); Potassium 4.4 mmol/L (3.4-5.0); Sodium 140 mmol/L (137-145)
[2024-09-06 08:47] LABS: Glucose Point of Care 79 mg/dl (65-105)
[2024-09-06] MEDS: SACCHAROMYCES BOULARDII 250 MG CAPSULE PO (09:26)
[2024-09-06] MEDS: FERROUS SULFATE 325 MG TABLET DR PO (09:26)
[2024-09-06] MEDS: APIXABAN 5 MG TABLET PO (09:26)
[2024-09-06] MEDS: ESCITALOPRAM OXALATE 10 MG TABLET PO (09:26)
[2024-09-06] MEDS: guaiFENesin 12 HR 600 MG TABCR 1200 MG PO (09:26)
[2024-09-06] MEDS: DOXYCYCLINE 100 MG/NS 100 ML 100 MG/100 ML BAG IVPB (09:27)
[2024-09-06] MEDS: DORZOLAMIDE HCL 2% OPHTH DROPS 2 DROP EACH EYE (09:27)
[2024-09-06] MEDS: PANTOPRAZOLE SODIUM IV 40 MG VIAL IV PUSH (09:27)
[2024-09-06] MEDS: FLECAINIDE ACETATE 50 MG TABLET PO (09:27)
[2024-09-06] MEDS: ACETAMINOPHEN 500 MG TABLET 1000 MG PO (09:32)
[2024-09-06] MEDS: INSULIN GLARGINE (*BKC) 100 UNITS/ML 20 UNITS SUB-Q (09:37)
--- NOTE | 2024-09-06 09:39 | PCNFU ---
Nutrition Follow-Up Complete: Suboptimal po intake related to appetite as evidenced by charted intake PO intake greater than 50% - Progressing Goal: Pt current nutrition is Diabetic diet, soft &bite size L6, Mildly thick liquids L2, Glucerna BID (220 kcal, 10 g protein). Nutrition recommendation: No new recommendations. Continue with current nutrition care plan and orders. Agree with orders Last recorded weight is 78.7 kg. Bowel Motility: +1 BM 09/06 Labs Reviewed: Alb 3.3, Cre 0.56 Meds Noted: Novolog, Lasix, Florastor, Lantus Skin: Pressure injuries Additional Notes: Intakes are progressing. Pt aspirates chronically. Family reportedly deciding between hospice and j-tube. Continue to monitor Monitor intake, wt, labs. Follow up in 5 days.
[2024-09-06 11:50] LABS: Glucose Point of Care 108 mg/dl (65-105)
--- NOTE | 2024-09-06 14:26 | P.DS_ITS ---
DS: Admitting Diagnosis Discharge Date 09/06/24 Admitting Diagnosis Respiratory failure, shortness of breath DS: Discharge Diagnosis Discharge Diagnosis (1) Pneumonia: Code(s): J18.9 - Pneumonia, unspecified organism Status: Acute (2) Hospital acquired PNA: Code(s): J18.9 - Pneumonia, unspecified organism; Y95 - Nosocomial condition Status: Acute DS: Summary Hospital Course Hospital Course: This is an 83 yo female with paroxysmal AFib, CATY, MS requiring suprapubic cath, CHF, chronic hypoxic respiratory failure on 2 LPM O2, COPD, functional q uadriplegic, ileostomy and DM admitted for acute on chronic hypoxic respiratory failure due to likely recurrent aspiration. Patient had just been discharged from this facility on 08/28/24 back to intermediate after admission for pneumonia and hypoxia. Per prior admission, it is felt that patient is having intermittent aspiration. In ER today patient required BiPAP due to work of breathing and hypoxia. Patient is confused. Family at bedside at time of exam. Patient known to pull off medical equipment/lines. Patient is DNR/DNI status but family not ready for comfort measures. One of her daughter's is on a cruise right now. Workup in the ER shows WBC elevated at 17.7. ABG with mild hypoxemia on 2 LPM--pO2 was 74.6. Chemistry panel generally unremarkable. Pro-BNP 1040 which is lower than on presentation of last admission. Urinalysis appears likely urine infection with 3+ urine bacteria, >100 RBCs, >100 WBCs, 3+ leukocyte esterase. Prior urine cultures reviewed and she has had Pseudomonas aeruginosa, Proteus mirabilis and Klebsiella pneumoniae in prior cultures, all sensitive to cefepime or Zosyn. CXR shows LLL consolidation and bilateral upper lobe opacities (previously only RUL.) ER initiated IV vancomycin and Zosyn. Patient was managed aspiration pneumonia, initially on BiPAP but was successfully weaned off to 2 liters oxygen. However patient continued to cough and feel dyspneic thus pulmonology was consulted and he evaluated noted that patient will continue to have aspiration and noted he had consulted with patient her previous admission and recommended hospice. I discussed with family and recommended hospice per pulmonology as well trial of postpyloric tube feeding which they declined and rather went for hospice. Patient completed 7 days of Abx and discharged today to hospice facility. F/u [facility] PCP and hospice care. Time Spent with Patient Time attestation: Total time spent providing and/or coordinating discharge services: DS: Data Data Completed and Pending Labs on day of discharge: Labs from last 24 hours 09/06/24 09/06/24 09/06/24 11:46 08:43 04:58 WBC 13.5 H RBC 4.84 Hgb 12.5 Hct 40.5 MCV 83.7 MCH 25.8 L MCHC 30.9 L RDW 14.6 H Plt Count 261 MPV 11.2 H Immature Gran % (Auto) 1.0 H Neut % (Auto) 56.5 Lymph % (Auto) 18.6 [place] % (Auto) 19.1 H Eos % (Auto) 4.1 Baso % (Auto) 0.7 Lymph # (Auto) 2.52 [place] # (Auto) 2.6 H Eos # (Auto) 0.6 H Baso # (Auto) 0.1 Abs Immat Gran (auto) 0.13 H Absolute Neuts (auto) 7.7 H Absolute Nucleated RBC 0.000 Nucleated RBC % 0.0 Sodium 140 Potassium 4.4 Chloride 113 H Carbon Dioxide 18 L Anion Gap 9 BUN 9 Creatinine 0.56 L Estim Creat Clear Calc 60 Estimated GFR > 60 Glucose 74 POC Capillary Glucose 108 H 79 Calcium 9.9 Magnesium 2.3 Total Bilirubin 0.2 AST 35 ALT 20 Alkaline Phosphatase 61 Total Protein 6.0 L Albumin 3.3 L 09/05/24 09/05/24 20:36 16:31 WBC RBC Hgb Hct MCV MCH MCHC RDW Plt Count MPV Immature Gran % (Auto) Neut % (Auto) Lymph % (Auto) [place] % (Auto) Eos % (Auto) Baso % (Auto) Lymph # (Auto) [place] # (Auto) Eos # (Auto) Baso # (Auto) Abs Immat Gran (auto) Absolute Neuts (auto) Absolute Nucleated RBC Nucleated RBC % Sodium Potassium Chloride Carbon Dioxide Anion Gap BUN Creatinine Estim Creat Clear Calc Estimated GFR Glucose POC Capillary Glucose 91 108 H Calcium Magnesium Total Bilirubin AST ALT Alkaline Phosphatase Total Protein Albumin Discharge Plan Discharge Attending physician on discharge: Oscar Rivas Consulting providers: Noah Hampton Discharging Clinician: Oscar Rivas Anticipated Discharge Date/Time: 09/06/24 14:22 Patient Disposition: Hospice - Medical Facility Activity: as tolerated Diet: as tolerated Patient Instructions: Apixaban (By mouth), Heart Failure (GEN) Patient Language: Guamanian Stand Alone Forms: General Discharge Information Follow-up/Referrals: Daquan,Julian Greer DO [Primary Care Provider] - (F/u with PCP in 3-5 days ) Discharge Medications: Continued Arginaid 4.5 gram-156 mg/9.2 gram Powder In Packet 1 g PO BID Rx Instructions: 1 packet bid pantoprazole 40 mg tablet,delayed release (DR/EC) 40 mg PO DAILY albuterol sulfate 90 mcg/actuation HFA aerosol inhaler 2 puff INHALATION PRN ferrous sulfate [Kassie-Time] 325 mg (65 mg iron) tablet 325 mg PO BID insulin lispro [Humalog KwikPen Insulin] 100 unit/mL insulin pen 1 sliding scale dose SUBCUT TID loratadine 10 mg Tablet 10 mg PO QHS Qty: 20 0RF ipratropium-albuterol 0.5 mg-3 mg(2.5 mg base)/3 mL solution for nebulization 3 ml INHALATION TID escitalopram oxalate [Lexapro] 10 mg tablet 10 mg PO DAILY insulin glargine [Lantus U-100 Insulin] 100 unit/mL Solution 20 unit subcut Q12H nystatin 100,000 unit/gram powder 1 applic topical BID Rx Instructions: Apply under skin folds of breast, abdomen and groin miconazole nitrate [Antifungal (miconazole)] 2 % cream 1 applic topical BID Rx Instructions: apply to buttocks, leave open to air cranberry extract 425 mg Capsule 425 mg PO DAILY Rx Instructions: administer with a meal dorzolamide 2 % drops 2 drp EACH EYE TID Rx Instructions: daily, noon and HS rosuvastatin 10 mg tablet 10 mg PO HS nitroglycerin 0.4 mg tablet, sublingual 0.4 mg sublingual PRN PRN (Reason: Chest Pain) Rx Instructions: 1 tab po PRN q 5mins x 3 doses levothyroxine 75 mcg tablet 75 mcg PO DAILY Rx Instructions: takes Friday-Friday bromfenac 0.09 % drops 1 drp RIGHT EYE HS acetaminophen 500 mg capsule 1,000 mg PO Q6H PRN (Reason: pain) melatonin 5 mg Tablet 5 mg PO HS Qty: 30 0RF hyoscyamine sulfate 0.125 mg Tablet 0.125 mg PO BID PRN (Reason: cramping) acetic acid 0.25 % Solution 30 ml irrigation EVERY OTHER DAY Patient Comments: 30 ml irrigation every shift to flush suprapubic catheter every day Rx Instructions: Flush suprapubic catheter Fri, Fri, Friday Saccharomyces boulardii [Florastor] 250 mg Capsule 250 mg PO BID furosemide 40 mg Tablet 40 mg PO BID Qty: 60 0RF flecainide 50 mg tablet 50 mg PO Q12H Qty: 60 0RF Eliquis 5 mg tablet 5 mg PO Q12H Qty: 60 0RF Date of admission: 08/30/24 18:26 Primary Care Provider: DaquanJulian Admitting Provider: Aguila Amaya Attending physician on admission: Oscar Rivas Condition: Guarded Prognosis
[2024-09-06 16:47] LABS: Glucose Point of Care 122 mg/dl (65-105)
== END 2024-09-06 18:15 | DRG 189 ==
LOC: ANHED 16:20 → ANHIMU 19:10 → ANH3MED 09-01 22:36
PROVIDERS: Emergency Medicine; Internal Medicine Pulmonary Disease; Nurse Practitioner; Admitting Provider General Practice; Emergency Provider Emergency Medicine; PCP Internal Medicine; Visit Provider Internal Medicine
DX: J96.21 Acute and chronic respiratory failure with hypoxia (principal); J69.0 Pneumonitis due to inhalation of food and vomit; J18.9 Pneumonia, unspecified organism; N30.01 Acute cystitis with hematuria; I50.32 Chronic diastolic (congestive) heart failure; G82.20 Paraplegia, unspecified; B96.5 Pseudomonas (aeruginosa) (mallei) (pseudomallei) as the cause of diseases classified elsewhere; E03.9 Hypothyroidism, unspecified; E11.42 Type 2 diabetes mellitus with diabetic polyneuropathy; G47.33 Obstructive sleep apnea (adult) (pediatric); I48.0 Paroxysmal atrial fibrillation; I35.0 Nonrheumatic aortic (valve) stenosis; I11.0 Hypertensive heart disease with heart failure; K21.9 Gastro-esophageal reflux disease without esophagitis; Z99.81 Dependence on supplemental oxygen; Z66 Do not resuscitate; Z20.822 Contact with and (suspected) exposure to COVID-19; Z79.01 Long term (current) use of anticoagulants; Z79.4 Long term (current) use of insulin; Z86.73 Personal history of transient ischemic attack (TIA), and cerebral infarction without residual deficits; Z86.711 Personal history of pulmonary embolism; Z85.3 Personal history of malignant neoplasm of breast; Z93.2 Ileostomy status
CPT/HCPCS: 36415; 36600; 71045; 71046; 71250; 80053; 81001; 82375; 82805; 82948; 83036; 83050; 83605; 83735; 83880; 84145; 84484; 85018; 85025; 85652; 86140; 87040; 87086; 87637; 87641; 92526; 92610; 92611; 93005; 93306; 94002; 94003; 94640; 96365; 96366; 96367; 96375; 99285; A9270; J0692; J1815; J1836; J1938; J2185; J2470; J2543; J3370; J3475; J3480; J7040; J7120; Q9957

== ENCOUNTER 2024-11-02 11:55 | Emergency (ER) | payer MEDICARE, MEDICAID, SELFPAY ==
--- NOTE | ~2024-11-02 | XR_ITS ---
EXAMINATION: XR chest 2V DATE: 11/02/2024 13:06 INDICATION: Shortness of breath TECHNIQUE: frontal and lateral views of the chest were obtained. COMPARISON: Chest radiograph dated 09/03/2024 FINDINGS: The lungs are clear with no focal airspace opacities, pulmonary edema, pleural effusion or pneumothor ax. The cardiomediastinal silhouette is normal. Calcified right hilar and mediastinal lymph nodes con sistent with old granulomatous disease. Surgical clips at the left breast. Cholecystectomy clips in r ight upper quadrant. IMPRESSION: 1. No acute cardiopulmonary disease. Reviewed, dictated and finalized at location A.
[2024-11-02 12:03] VITALS: BP 129/62; PULSE 106; RESP 23; TEMP 37.1; O2SAT 95
--- NOTE | 2024-11-02 12:14 | PC.NURSE ---
Pt arrives with a colostomy and suprapubic catheter in place.
--- NOTE | 2024-11-02 12:15 | ECG_ITS ---
Test Date: 2024-11-02 12:27:20 Measurements Intervals [place] Rate: 105 P: -14 VT: 169 QRS: -72 QRSD: 118 T: 98 QT: 269 QTc: 355 Interpretive Statements SINUS TACHYCARDIA LEFT ANTERIOR FASCICULAR BLOCK BASELINE ARTIFACT- I, II, III, AVR, AVL, AVF, V1-V6 ABNORMAL ECG Compared to ECG 08/30/2024 12:45:36 HEART RATE HAS INCREASED Electronically Signed On 11-02-2024 12:47:20 CDT by Emmanuel Tamez D.O.
[2024-11-02 12:31] VITALS: O2SAT 97
--- OUTSIDE RECORDS SUMMARY | 2024-11-02 13:10 | XMS_ITS | Clinical Summary ---
Author Organization [facility] Address [address] [place] [address] Care Team Providers Care Paper Colorer Name Role Phone Migue Herman MD Unavailable [phone] Sonny Palmer MD Unavailable [phone] Unknown, Notinfile Primary Care Provider Unavail able [...] 1 tablet (150 mcg total) by mouth hide and skin colerer before breakfast 4 Active levothyroxine (SYNTHROID) 75 mcg tablet Take 1 tablet (75 mcg total) by mouth hide and skin colerer before breakfast Once a day MON thru [...] (12/22/2020): Added automatically from request for surgery [id number] Cystitis 05/14/2019 Chronic constipation 05/14/2019 Recurrent inguinal [...] 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 Lymphedema of both lower extremities 10/01/2017 [...] 08/12/2024 10:00 AM CDT Office Visit [facility] [address] [place] [address] Maria Dolores Kinsey NP Shortness of breath (Primary Dx); Aortic valve stenosis, etiology of cardiac valve disease unspecified; Coronary artery disease involving nez perce coronary artery of nez perce heart without angina pectoris; PAF (paroxysmal atrial [...] often do you attend chur ch or zoroastrianism services? 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 Gender Identity Not on file Sexual Orientation [...] 2:34 PM CDT Height 165.1 cm (5' 5) 08/12/2024 10:00 AM CDT Body Mass Index [...] 07/17, 03/12/2021, Additional history exists Influenza Vaccine (Season Ended) 2025 03/02/2020, 03/05/2019, 03/31/2018, Additional history exists DTaP/Tdap/Td Vaccine (2 - Td or Tdap) 08/29/2025 08/30/2015, 11/21/2009, 09/05/1995 Pneumococcal vaccine 65+ Completed 016, 12/04/2010, 11/29/2005 Procedures Procedure Name Priority Date/Time Associated Diagnosis Comments ELECTROCARDIOGRAM REPORT Routine 08/13/2024 PAF (paroxysmal atrial fibrillation) ([facility]) EGFR Routine 08/30/2022 12:10 PM CDT [...] LAB BLOOD ORDERABLES Fi nal Result [facility] [address] [place] [address] * (ABNORMAL) Plasma lipid panel (08/18/2015 5:00 AM CDT) [facility] Cholesterol 112 100 - 200 mg/dl HISTORICAL RESULTS Triglycerides 175(H) 10 - 150 mg/dl HISTORICAL RESULTS HDL 27(L) 40 - 59 mg/dl HISTORICAL RESULTS LDL 50(L) 60 - 129 mg/dl HISTORICAL RESULTS Plasma 08/18/2015 5:00 AM CDT Narrative HISTORICAL RESULTS - 08/18/2015 6:29 AM CDT Test performed at [address], [facility]. Historical Provider LAB BLOOD ORDERABLES Bárbara l Result Performing Organization Address City/[facility] Co de Phone Number HISTORICAL RESULTS from Last 3 Months or Most Recently Relevant to Health Maintenance Insurance IDPA MEDICARE COMMERCIAL GENERIC MEDICARE COMMERCIAL GENERIC ATTN: CLAIMS [place] [id number] IDPA MEDICARE [facility] Address: [address] [address] [place] [address] Advance Directives For more information, please contact: [phone] Documents on File Type Date Recorded Patient Travel Physical Therapist Expl anation ADVANCE DIRECTIVE 04/06/2018 9:51 PM [...] 1:59 PM 03/22/2019 10:28 PM Care Teams Paper Colorer Relationship Specialty Start Date End Date Unknown, Notinfile PCP - General 08/12/24 Migue Herman MD Consulting Physician Urology 05/16/19 Sonny Palmer MD Surgeon General Surgery 05/16/19
--- OUTSIDE RECORDS SUMMARY | 2024-11-02 13:10 | XMS_ITS ---
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 Lymphedema of both lower extremities 10/01/2017 Assessment [...]
--- OUTSIDE RECORDS SUMMARY | 2024-11-02 13:10 | XMS_ITS | Encounter Summary ---
Author Organization [facility] Address [address] [facility] [facility] [place] [address] Care Team Providers Care Stacker Tender Name Role Phone Etienne Florez MD Unavailable Enrique Gonzalez MD Unavailable [phone] Theresa Camargo MD Primary Care Provider [phone] Nelson Ross MD Unavailable [phone] Laz Valencia MD Unavailable Russell Moran MD Unavailable [phone] Yuliya Ibarra MD Unavailable [phone] Phuong Callejas DPM Unavailable [phone] Sy Barrientos MD Unavailable Russell Moran MD Unavailable [phone] Rico Gasca MD Unavailable Elle Landaverde MD Unavailable Kirk Truong MD Unavailable [phone] Shira Love DO Unavailable [phone] Theresa Camargo MD Unavailable + 00 Brooke Haynes MACHINE HOSTLER-SOFTWARE ENGINEERING PROJECT MANAGER Unavailable [phone] Theresa Camargo MD Unavailable [phone] Brooke Haynes MACHINE HOSTLER-SOFTWARE ENGINEERING PROJECT MANAGER Unavailable [phone] Theresa Camargo MD Unavailable [phone] Asha Narvaez MACHINE HOSTLER-SOFTWARE ENGINEERING PROJECT MANAGER Unavailable [phone] Theresa Camargo MD Unavailable + 00 Asha Narvaez MACHINE HOSTLER-SOFTWARE ENGINEERING PROJECT MANAGER Unavailable [phone] Sara Schultz MD Unavailable [phone] Brooke Haynes MACHINE HOSTLER-SOFTWARE ENGINEERING PROJECT MANAGER Unavailable [phone] Rosa Abraham RN Unavailable [...] + Jarrell Garrison MD Unavailable Brooke Haynes MACHINE HOSTLER-SOFTWARE ENGINEERING PROJECT MANAGER Unavailable [phone] Encounter Details Date Type Department Care Team (Late st Contact Info) Description 08/05/2017 [facility] [address] [place] [address] Shira Love, [address] [place] [address] Social History Tobacco Use Types Packs/Day Years Used Date Smoking Tobacco: Never Smokeless Tobacco: Never Alcohol Use Standard Drinks/Week Comments No 0 (1 standard drink = 0.6 oz pur e alcohol) Comments No Sex and Gender Information Value Date Recorded Sex Assigned at Not on file Legal Sex Female 11:53 AM AIRCRAFT POWERPLANT REPAIRER Gender Identity Not on file Sexual [...] < 140/90 Blood Pressure 127/52(2022 8:09 AM AIRCRAFT POWERPLANT REPAIRER) No Alisa Jaramillo HEMOGLOBIN A1C < 7.0 Result Component 5.4( 12:00 AM CDT) No Alisa Jaramillo documented as of this encounter Visit Diagnoses Not on filedocumented in this encounter Additional Health Concerns Infection Onset Date Last Indicated Resolved Time COVID-19 Under Investigation 09/26/2020 09/26/2020 09/27/2020 7:46 AM CDT CDIFF Under Investigation 05/19/2022 05/19/2022 9:06 PM AIRCRAFT POWERPLANT REPAIRER documented as of this encounter Care Teams Stacker Tender Relationship Specialty [place] [address] [place] [address] PCP - General Internal Medicine 03/31/18 05/30/22 [place] [address] [place] [address] PCP - Attributed-MSSP 03/19/19 06/18/19 Brooke Haynes APRN-SOFTWARE ENGINEERING PROJECT MANAGER [address] [place] [address] PCP - Attributed-MSSP 06/19/19 07/17/19 [place] [address] [place] [address] PCP - Attributed-MSSP 07/18/19 10/17/19 Brooke Haynes MACHINE HOSTLER-SOFTWARE ENGINEERING PROJECT MANAGER [address] [place] [address] PCP - Attributed-MSSP 10/18/19 11/16/19 [place] [address] [place] [address] PCP - Attributed-MSSP 11/17/19 02/16/20 Asha Narvaez MACHINE HOSTLER-SOFTWARE ENGINEERING PROJECT MANAGER [address] [place] [address] PCP - Attributed-MSSP 02/17/20 06/18/20 [place] [address] [place] [address] PCP - Attributed-MSSP 06/19/20 08/16/20 Asha Narvaez APRN-SOFTWARE ENGINEERING PROJECT MANAGER [address] [facility] [address] [place] [address] PCP - Attributed-MSSP 08/17/20 10/16/20 Brooke Haynes MACHINE HOSTLER-SOFTWARE ENGINEERING PROJECT MANAGER [address] [facility] [address] [place] [address] PCP - Attributed-MSSP 10/17/20 09/15/21 [place] [address] [facility] [address] [place] [address] PCP - Attributed-MSSP 09/16/21 11/15/21 [place] [address] [facility] [address] [place] [address] PCP - Attributed-MSSP 11/16/21 10/03/22 Elizabeth Car MD [address] [facility] [address] [place] [address] PCP - General Family Medicine 05/31/22 08/05/22 [place] [address] [place] [address] PCP - General 08/06/22 08/14/22 Elizabeth Car MD [address] [facility] [address] [place] [address] PCP - General Family Medicine 08/15/22 Jarrell Garrison MD [address] [facility] [address] [place] [phone] PCP - Attributed-MSSP 04/18/18 10/16/18 Brooke Haynes APRN-SOFTWARE ENGINEERING PROJECT MANAGER [address] [facility] [address] [place] [address] PCP - Attributed-MSSP 10/17/18 9 Etienne Florez MD Orthopedic Surgery 12/09/14 [place] [address] [facility] [address] [place] [phone] Oncology 09/15/17 [place] [address] [facility] [address] [place] [phone] Neurology 06/26/18 [place] [address] [facility] [address] [place] [address] Cardiovascular Disease 06/26/18 [place] [address] [address] Pulmonary Disease 06/26/18 Yuliya Ibarra MD [address] [facility] [address] [place] [id number] Endocrinology 06/26/18 Phuong Callejas DPM [address] [place] [address] Podiatry 06/26/18 Sy Barrientos MD [address] [place] [address] [place] [address] Ophthalmology 06/26/18 [place] [address] [address] Pulmonary Disease 06/26/18 Rico Gasca MD [address] [phone] Urology 06/26/18 Elle Landaverde MD [address] [phone] Vascular Surgery 06/26/18 Kirk Truong MD [address] [phone] Gastroenterology 06/26/18 [place] [address] [place] [phone] General Surgery 06/26/18 [place] [address] [facility] [address] [place], [place] [id number] Pulmonary Disease 11/10/20 Rosa Abraham, DES Manpower Development AdvisorHead Setter 06/19/21 07/05/21 Hussain Ray MD [address] [place] [address] Urology 07/11/21 Rosa Abraham RN Manpower Development AdvisorHead Setter 05/31/22 05/31/22 Rosa Abraham RN Manpower Development AdvisorHead Setter 08/15/22 08/15/22 documented as of this encounter
--- OUTSIDE RECORDS SUMMARY | 2024-11-02 13:10 | XMS_ITS | Referral Summary ---
Author Organization [facility] Address [address] [place] [address] Care Team Providers Care Metal Treater Name Role Phone Migue Herman MD Unavailable [phone] Sonny Palmer MD Unavailable [phone] Unknown, Notinfile Primary Care Provider Unavail able Encounters Date Type Department Care Team Description 08/12/2024 10:00 AM CDT Office Visit [facility] Cardiology [address] [place] [address] Maria Dolores Kinsey NP Shortness of breath (Primary Dx); Aortic valve stenosis, etiology of cardiac valve disease unspecified; 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 Lymphedema of both lower extremities 10/01/2017 Assessment [...] often do you attend chur ch or yazidism services? Never 12/25/2020 Do you belong to any clubs o r organizations such as confucianist groups, unions, fraternal or athletic groups, or [...] file Legal Sex Female 6:56 PM INDUSTRIAL ENGINEERING Gender Identity Not on file Sexual Orientation [...] Report (08/13/2024) 08/13/2024 us Maria Dolores Kinsey SPECIMEN TECHNICIAN ECG ORDERABLES Final Res ult * eGFR [...] LAB BLOOD ORDERABLES Fi nal Result [facility] [address] [address] [place] [address] * (ABNORMAL) Plasma lipid panel (08/18/2015 5:00 AM CDT) Cholesterol 112 100 - 200 mg/dl HISTORICAL RESULTS Triglycerides 175(H) 10 - 150 mg/dl HISTORICAL RESULTS HDL 27(L) 40 - 59 mg/dl HISTORICAL RESULTS LDL 50(L) 60 - 129 mg/dl HISTORICAL RESULTS Plasma 08/18/2015 5:00 AM CDT Narrative HISTORICAL RESULTS - 08/18/2015 6:29 AM CDT Test performed at [facility], [address] [place] [address], [facility], [address]. 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
--- OUTSIDE RECORDS SUMMARY | 2024-11-02 13:10 | XMS_ITS ---
Author Organization [facility] Address [address] [facility] [place] [address] Care Team Providers Care Senior Market Intelligence Consultant Name Role Phone Etienne Florez MD Unavailable [phone] Enrique Gonzalez MD Unavailable [phone] Nelson Ross MD Unavailable [phone] Laz Valencia MD Unavailable Russell Moran MD Unavailable Yuliya Ibarra MD Unavailable [phone] Phuong Callejas DPM Unavailable Sy Barrientos MD Unavailable Russell Moran MD Unavailable Rico Gasca MD Unavailable Elle Landaverde MD Unavailable [phone] Kirk Truong MD Unavailable Shira Love DO Unavailable [phone] Sara Schultz MD Unavailable Hussain Ray MD Unavailable [phone] Elizabeth Car MD Primary Care Provider + Active Problems Problem Noted Date Diagnosed Date 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 Gasca) with some improvement. Had confusion with 50mg? 03/24/19 PVR 304mL. Olivas placed for incontinence, quality of life. Stop myrbetriq. Assessment & Plan (07/20/2019 8:50 PM TANK CAR REPAIRER): - Assessment & Plan (06/01/2019 9:22 PM TANK CAR REPAIRER): - Assessment & Plan (03/23/2019 4:31 PM TANK CAR REPAIRER): - Pneumonia due to infectious organism [...]
--- OUTSIDE RECORDS SUMMARY | 2024-11-02 13:10 | XMS_ITS | Clinical Summary ---
Author Organization [facility] Address [address] [place] [address] Phone Care Team Providers Care Drilling Superintendent Name Role Phone Unavailable Primary Care Provider Unavailabl e Allergies Active Allergy Reactions Criticality Noted Date [...] complication, without long-term current use of insulin ([facility]) TAKE 2 TABLETS BY MOUTH [...] Encounters Date Type Department Care Team Description 10/26/2024 External Device Data STL ABSTRACTION Provider, Abstract 09/29/2024 Orders Only [facility] Oncology and Hematology - [address] [place] [phone] Ovidio Nolen MD 09/27/2024 2:00 PM CDT Office Visit [facility] Oncology and Hematology - [address] [place] [address] Ovidio Nolen MD Malignant neoplasm of left breast in female, estrogen receptor positive, unspecified site of breast (CMS/HCC) (Primary Dx) 09/24/2024 Orders Only [facility] Oncology and Hematology [facility] [address] [place] [address] Ovidio Nolen MD 08/04/2024 External Device Data STL ABSTRACTION Provider, [...] on file Legal Sex Female 6:00 AM OPERATIONS SPECIALISTS Gender Identity Not on file Sexual Orientation Not on file Occupation Industry Job Start Date Job End Date Not on file Not on file Not on file Not on file Last Filed Vital Signs Vital Sign Reading Time Taken Comments Blood Pressure 122/59 09/27/2024 1:53 PM CDT Pulse 73 09/27/2024 1:53 PM CDT Temperature 36.3 C (97.4 F) 09/27/2024 1:53 PM CDT Respiratory Rate 15 09/27/2024 1:53 PM CDT Oxygen Saturation 97% 09/27/2024 1:5 3 PM CDT Inhaled Oxygen Concentration - - Weight 74.8 kg (165 lb) 09/27/2024 1:53 PM CDT patient reported Height 165.1 cm (5' 5) 06/06/2022 1:30 PM OPERATIONS SPECIALISTS Body Mass Index 27.46 06/06/2022 1:30 PM [facility]ISTS Plan of Treatment Upcoming Encounters Date Type Department Care Team (Late st Contact Info) Description 09/28/2025 1:15 PM CDT Office Visit [facility] Oncology and Hematology - [place] [address] [place] [address] Ovidio Nolen MD [address] [facility] [address] [place] [address] Health Maintenance Due Date Last [...] - 2023-2 5 season) 2024 07/07/2020, 06/13/2020 OSTEOPOROSIS SCREENING 06/06/2025 1, 06/06/2020, 10/29/2017, Additional history exists DTAP/TDAP/TD VACCINES (2 - T d or Tdap) 08/29/2025 08/30/2015 PNEUMOCOCCAL VACCINE 50+ YEARS Completed 0 02/16/2016, 12/04/2010, 11/29/2005 COLORECTAL SCREENING Discontinued 12/27/2020, 12/27/2020, 02/17/2019, Additional history exists Colorectal Cancer Screening Discontinued Flex Sig/CT Colonography Q 5 years Discontinued 12/27/2020, 12/27/2020 FIT-DNA Q 3 years Discontinued FIT/FOBT Q 1 year Discontinued Medical Devices Implanted Type Area Chief Environmental Commitment Officer Device Identifier Shelf Expiration Date Model / Serial / Lot Log [id number] - Bladder Slings And Tapes - 1 - Sling Desara System [id number] Implanted:Qty: 1 on 09/10/2010 at [facility] Sling N/A: Vagina [employer] 05/17/2013 [id number] / / [id number] Procedures Procedure Name Priority Date/Time Associated Diagnosis Comments COMPREHENSIVE METABOLIC PANEL Routine 09/27/2024 11:52 AM CDT COMPREHENSIVE METABOLIC PANEL Routine 09/17/2024 10:53 AM CDT XR DEXA BONE DENSITY AXIAL 1 OR MORE SITES Routine 06/06/2020 10:40 AM [facility] Hyperparathyroidism, unspecified Subclinical hypothyroidism HEMOGLOBIN A1C Routine 05/05/2020 1:54 PM [facility] Type 2 diabetes mellitus not at goal (CMS/HCC) MICROALBUMIN/CREATINI NE RATIO, RANDOM UR Routine 05/02/2017 12:38 PM [facility] Type 2 diabetes mellitus without complication, without long-term current use of insulin (CMS/HCC) LIPID PANEL Routine 12/12/2016 4:14 AM CDT Type 2 diabetes mellitus without complication, with long-term current use of insulin (CMS/HCC) from Last 3 Months or Most Recently Relevant to Health Maintenance Results * COMPREHENSIVE METABOLIC PANEL (09/27/2024 11:52 AM CDT) Only the most recent of2 resultswithin the time period is included. Blood us Ovidio Nolen MD CHEMISTRY ORDERABLES Final Resu lt * XR DEXA BONE DENSITY AXIAL 1 OR MORE SITES (06/06/2020 10:40 AM [facility]) Anatomical Region Laterality Modality Digital Radiogra phy 06/06/2020 11:0 3 AM [facility] Impressions 06/06/2020 11:14 AM [facility] IMPRESSION: This is a summary page. Please refer to the complete detailed report found in the Imaging Section of the [facility] EMR. Osteopenia. Lumbar Spine: T-Score: -1.5 Left [...] Smart MD DICTATION LOCATION: 06/06/2020 11:14 AM [facility] EXAMINATION: BONE DENSITY STUDY (DXA) DATE: 06/06/2020 10:40 AM HISTORY: 79 years Female. Postmenopausal. PROCEDURE: Planar images of the lumbar spine, hip(s) and forearm(s) using a [employer] DEXA scanner for bone mineral density determination [...] lumbar spine, hip(s) and forearm(s) using a [employer] DEXA scanner for bone mineral density determination [...] found in the Imaging Section of the [facility] EMR. Osteopenia. Lumbar Spine: T-Score: -1.5 Left [...] * (ABNORMAL) HEMOGLOBIN A1C (05/05/2020 1:54 PM [facility]) [facility] HEMOGLOBIN A1C 7.1(H) <5.7 % of total Hgb [facility] Comment: For someone without known diabetes, a [...] of diabetes for children. Test Performed at: [facility] [address] [place] [address] Elie Hamlin D.O., MPH Blood 05/05/2020 1:54 PM [facility] Yuliya Ibarra MD CHEMISTRY ORDERABLES Final Re sult [facility] [address] [place] [address] * MICROALBUMIN/CREATININE RATIO, RANDOM UR (05/02/2017 12:38 PM [facility]) MICROALBUMIN, URINE <1.2 No Reference Range mg/dL 05/02/2017 2:23 PM [facility] [employer] Information [facility] [facility] CREATININE, URINE 59.8 29.0 - 226.0 mg/dL 05/02/2017 2:23 PM [facility] Valentin Uzhun [facility] Comment: Reference Range varies with fluid intake and diet. MICROALBUMIN/C REAT RATIO, UR <20.1 <25.0 mg/g 05/02/2017 2:23 PM [facility] [employer] [facility] Urine URINE SPECIMEN OBTAINED BY CLEAN CATCH PROCEDURE / Unknown Collection / Unknown 05/02/2017 12:38 PM [facility] 05/02/2017 1:18 PM [facility] Narrative Valentin Uzhun [facility] - 05/02/2017 2:23 PM [facility] Condition Microalbumin/Creat ratio Normal Males <17 Normal Females <25 Microalbuminuria Males 17-299 Microalbuminuria Females 25-299 Overt proteinuria >=300 Yuliya Ibarra MD URINE ORDERABLES Final Result [employer] Information [employer] CLIA# [id number] 5 [facility] * (ABNORMAL) LIPID PANEL (12/12/2016 4:14 AM CDT) CHOLESTEROL 97(L) 125 - 200 mg/dL [facility] HDL 33(L) > OR = 46 mg/dL [facility] [employer] . [facility] TRIGLYCERIDE 138 <150 mg/dL [facility] LDL CALCULATED 36 <130 mg/dL (calc) [facility] Comment: Desirable range <100 mg/dL for patients with CHD or diabetes and <70 mg/dL for diabetic patients with known heart disease. CHOL/HDL RATIO 2.9 < OR = 5.0 (calc) [facility] TOTAL NON-HDL CHOL(LDL+VLDL) 64 mg/dL (calc) [facility] Comment: Target for non-HDL cholesterol is 30 mg/dL higher than LDL cholesterol target. Test Performed at: [facility] [address] [place] [address] ELIE HAMLIN DO,MPH Blood 12/12/2016 4:14 AM CDT us Yuliya Ibarra MD CHEMISTRY ORDERABLES Final Re sult [facility] [address] [place] [address] from Last 3 Months or Most Recently Relevant to Health Maintenance Insurance MEDICAID [place] MEDICARE PART A AND B Advance Directives For more information, please contact: [phone] Documents on File Type Date Recorded Patient Labor Law Professor Expl anation Advance Directive POA 11/14/2014 10:49 AM * Full Code (Latest Code Status on File) Date Activated Date Inactivated Comments 09/10/2010 6:07 PM 09/11/2010 5:58 PM * Full Code Date Activated Date Inactivated Comments 09/10/2010 11:59 AM 09/10/2010 6:07 PM * Full Code Date Activated Date Inactivated Comments 09/10/2010 10:29 AM 09/10/2010 11:59 AM
--- OUTSIDE RECORDS SUMMARY | 2024-11-02 13:10 | XMS_ITS | Clinical Summary ---
Author Organization [facility] Address [address] [place] [address] Care Team Providers Care Clerk Stenographer Name Role Phone Etienne Florez MD Unavailable [phone] Enrique Gonzalez MD Unavailable [phone] Nelson Ross MD Unavailable [phone] Laz Valencia MD Unavailable Russell Moran MD Unavailable [phone] Yuliya Ibarra MD Unavailable [phone] Phuong Callejas DPM Unavailable [phone] Sy Barrientos MD Unavailable Russell Moran MD Unavailable Rico Gasca MD Unavailable Elle Landaverde MD Unavailable Kirk Truong MD Unavailable [phone] Shira Loev DO Unavailable [phone] Sara Schultz MD Unavailable [phone] Hussain Ray MD Unavailable [phone] Elizabeth Car MD Primary Care Provider + Source Comments [facility],non-owned Affiliates and Associated Physician Practices is amultiple site organization consisting of ambulatory clinics and hospital sitesin [place], [place], [place] and [place]. This disclosure is being madepursuant to the Care Everywhere program and may not contain all information available regarding this patient. Last updated 18.[facility] Allergies Active Allergy Reactions Criticality Noted [...] mouth 2 times daily Active HYDROcodone-aceta minophen (Gary) 5-325 MG tablet Take 1 (one) tablet [...] Department Care Team Description 07/31/2020 Office Visit [place] [facility] Maintenance Worker [address] [place] [id number] Laz Valencia MD Type 2 diabetes [...] from 09/16/2017:Stage IA(cT1b, cN0, cM0, G2, ER+, NY+, HER2-) - Signed by Clarita Mir MD on 10/31/2018 Pathologic stage from 09/17/2017:Stage IA(pT1c, pN0(sn), cM0, G2, ER+, NY+, HER2-) - Signed by Clarita Mir MD on 10/31/2018 Overview (10/31/2018): Left, upper outer, 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 ER pos 97% (strong), NY pos 23% (moderate), Her-2 neg (1+ on [...] proteus Assessment & Plan (07/20/2019 8:50 PM MACHINE WOODWORKING SANDER): - Lower urinary tract symptoms (LUTS) 03/23/2019 11/23/2019 Overview (03/24/2019): 11/2018 on myrbetriq 25mg (Dr. Gasca) with some improvement. Had confusion with 50mg? 03/24/19 PVR 304mL. Olivas placed for incontinence, quality of life. Stop myrbetriq. 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 Not on file Not on file Not on fi le Last Filed Vital Signs Vital Sign Reading Time Taken Comments Blood Pressure 127/52 05/30/2022 8:09 AM MACHINE WOODWORKING SANDER Pulse 80 05/30/2022 8:09 AM MACHINE WOODWORKING SANDER Temperature 37 C (98.6 F) 05/30/2022 8:09 AM MACHINE WOODWORKING SANDER Respiratory Rate 19 05/30/2022 8:09 AM MACHINE WOODWORKING SANDER Oxygen Saturation 96% 05/30/2022 8:09 AM MACHINE WOODWORKING SANDER Inhaled Oxygen Concentration - - Weight 85.1 kg (187 lb 10.5 oz) 05/23/2022 4:00 AM MACHINE WOODWORKING SANDER Height 162.6 cm (5' 4) 05/22/2022 11:3 9 AM MACHINE WOODWORKING SANDER Body Mass Index 32.21 05/22/2022 11:39 AM MACHINE WOODWORKING SANDER Plan of Treatment Health Maintenance Due Date [...] 140/90 Blood Pressure 127/52(2022 8:09 AM MACHINE WOODWORKING SANDER) No Alisa Jaramillo HEMOGLOBIN A1C < [...] Hemoglobin A1c 5.4 4.8 - 5.6 % [employer] INSURANCE BILL Comment: . Prediabetes: 5.7 - 6.4 Diabetes: >6.4 Glycemic control for adults with diabetes: <7.0 Blood BLOOD SPECIMEN / Unknown 12/08/2020 12/08/2020 Narrative Resulting Agency Comment Lab Testing performed at: [facility] [address] [facility] [phone] us Theresa Camargo MD LAB - CHEMISTRY ORDERABLES Fin al Result [facility] [facility] INSURANCE BILL [address] [place] [address] * DEXA BONE DENSITY AXIAL SKELETON (10/29/2017 [...] Recently Relevant to Health Maintenance Insurance MEDICARE [facility] MEDICARE MANAGED CARE PLAN GENERIC MEDICARE ADV Care Advance Directives Documents on File Type Date Recorded Patient Blow Mold Technician Expl anation Adv Directive/Living Will/POA 09/21/2020 7:42 [...] 8:33 PM 08/26/2017 12:39 PM Care Teams Clerk Stenographer Relationship Specialty Start Date End Date Elizabeth Car MD [address] [place] [address] PCP - General Family Medicine 08/15/22 Etienne Florez MD Orthopedic Surgery 12/09/14 [place] [address] [facility] [address] [place] [address] Oncology 09/15/17 [place] [address] [facility] [address] [place] [address] Neurology 06/26/18 [place] [address] [facility] [address] [place] [address] Cardiovascular Disease 06/26/18 Russell Moran MD [address] [place] [address] Pulmonary Disease 06/26/18 Yuliya Ibarra MD [address] [facility] [address] [place] [address] Endocrinology 06/26/18 Phuong Callejas DPM [address] [place], [place] [id number] Podiatry 06/26/18 Sy Barrientos MD [address] [place] [address] Ophthalmology 06/26/18 [place] [address] [address] Pulmonary Disease 06/26/18 Rico Gasca MD [address] [facility] [address] [place] [address] Urology 06/26/18 Elle Landaverde MD [address] [place] [address] Vascular Surgery 06/26/18 Kirk Truong MD [address] [place] [address] Gastroenterology 06/26/18 [place] [address] [facility] [address] [place] [address] General Surgery 06/26/18 [place] [address] [facility] [address] [place], [place] [phone] Pulmonary Disease 11/10/20 Hussain Ray MD [address] [facility] [address] [place] [address] Urology 07/11/21
--- OUTSIDE RECORDS SUMMARY | 2024-11-02 13:10 | XMS_ITS | Encounter Summary ---
Author Organization [facility] Address [address] [place] [address] Care Team Providers Care Open Shank Coverer Name Role Phone Theresa Camargo MD Primary Care Provider [phone] Laz Valencia MD Unavailable Migue Herman MD Unavailable [phone] Sonny Palmer MD Unavailable [phone] Elizabeth Car MD Primary Care Provider Unknown, Notinfile Primary Care Provider Unavail able Encounter Details Date Type Department Care Team (Late st Contact Info) Description 08/01/2020 Telephone 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 Gender Identity Not on file Sexual Orientation Not on file documented as of this encounter Plan of Treatment Not on file documented as of this encounter Visit Diagnoses Not on filedocumented in this encounter Additional Health Concerns Infection Onset Date Last Indicated Resolved Time COVID: Suspected 12/20/2020 12/20/2020 12/20/2020 6:55 PM CDT documented as of this encounter Care Teams Open Shank Coverer Relationship Specialty Start Date End Date Theresa Camargo MD PCP - General 09/29/18 12/05/22 Elizabeth Car MD [address] [facility] [address] [place] [address] PCP - General Family Medicine 12/06/22 08/11/24 Unknown, Notinfile PCP - General 08/12/24 Laz Valencia MD Consulting Physician Cardiology 03/22/19 12/05/22 Migue Herman MD Consulting Physician Urology 05/16/19 Sonny Palmer MD Surgeon General Surgery 05/16/19 documented as of this encounter
--- OUTSIDE RECORDS SUMMARY | 2024-11-02 13:10 | XMS_ITS | Encounter Summary ---
Author Organization [facility] Address [address] [place] [address] Care Team Providers Care Data Entry Machine Operator Name Role Phone Etienne Florez MD Unavailable [phone] Enrique Gonzalez MD Unavailable [phone] Theresa Camargo MD Primary Care Provider Nelson Ross MD Unavailable Laz Valencia MD Unavailable Russell Moran MD Unavailable [phone] Yuliya Ibarra MD Unavailable Phuong Callejas DPM Unavailable Sy Barrientos MD Unavailable Russell Moran MD Unavailable Rico Gasca MD Unavailable Elle Landaverde MD Unavailable Kirk Truong MD Unavailable [phone] Shria Love DO Unavailable [phone] Sara Schultz MD Unavailable [phone] Hussain Ray MD Unavailable [phone] Enrique Gonzalez MD Unavailable [phone] Rosa Abraham RN Unavailable [phone] Elizabeth Car MD Primary Care Provider + Theresa Camargo MD Primary Care Provider [phone] Rosa Abraham RN Unavailable [phone] Elizabeth Car MD Primary Care Provider + Encounter Details Date Type Department Care Team (Late st Contact Info) Description 02/05/2022 [facility] Outpatient Visit [facility] Health Cancer Care [id number] [place] [address] [place] [id number] [place] [address] Social History Tobacco Use Types Packs/Day Years Used Date Smoking Tobacco: Never Smokeless Tobacco: Never Alcohol Use Standard Drinks/Week Comments No 0 (1 standard drink = 0.6 oz pur e alcohol) PHQ-2 Answer Date Recorded PHQ2 TOTAL SCORE 0 08/01/2021 Comments No Sex and Gender Information Value Date Recorded Sex Assigned at Not on file Legal Sex Female 11:53 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 Not on file Not on file [...] < 140/90 Blood Pressure 127/52(2022 8:09 AM LABORATORY ANIMAL CARETAKER) No Alisa Jaramillo HEMOGLOBIN A1C < 7.0 Result Component 5.4( 12:00 AM CDT) No Alisa Jaramillo documented as of this encounter Visit Diagnoses Not on filedocumented in this encounter Additional Health Concerns Infection Onset Date Last Indicated Resolved Time CDIFF Under Investigation 05/19/2022 05/19/2022 9:06 PM LABORATORY ANIMAL CARETAKER documented as of this encounter Care Teams Data Entry Machine Operator Relationship Specialty [place] [address] [facility] [address] [place] [address] PCP - General Internal Medicine 03/31/18 05/30/22 [place] [address] [facility] [address] [place] [address] PCP - Attributed-MSSP 11/16/21 10/03/22 Elizabeth Car MD [address] [facility] [address] [place] [address] PCP - General Family Medicine 05/31/22 08/05/22 [place] [address] [facility] [address] [place] [address] PCP - General 08/06/22 08/14/22 Elizabeth Car MD [address] [place] [address] PCP - General Family Medicine 08/15/22 Etienne Florez MD Orthopedic Surgery 12/09/14 [place] [address] [facility] [address] [place] [address] Oncology 09/15/17 [place] [address] [facility] [address] [place] [address] Neurology 06/26/18 [place] [address] [facility] [address] [place] [address] Cardiovascular Disease 06/26/18 [place] [address] [address] Pulmonary Disease 06/26/18 Yuliya Ibarra MD [address] [facility] [address] [place] [address] Endocrinology 06/26/18 Phuong Callejas DPM [address] [place] [address] Podiatry 06/26/18 Sy Barrientos MD [address] [place] [address] [place] [address] Ophthalmology 06/26/18 [place] [address] [address] Pulmonary Disease 06/26/18 Rico Gasca MD [address] [facility] [address] [address] Urology 06/26/18 Elle Landaverde MD [address] [address] Vascular Surgery 06/26/18 Kirk Truong MD [address] [address] Gastroenterology 06/26/18 [place] [address] [facility] [address] [place] [address] General Surgery 06/26/18 [place] [address] [place] [address] Pulmonary Disease 11/10/20 Hussain Ray MD [address] [facility] [address] [place] [address] Urology 07/11/21 Rosa Abraham RN Billing CoordinatorSystems Engineering Manager 05/31/22 05/31/22 Rosa Abraham RN Billing CoordinatorSystems Engineering Manager 08/15/22 08/15/22 documented as of this encounter
[2024-11-02 13:29] LABS: Basophils Absolute Auto 0.1 K/mm3 (0.0-0.1); Basophils Percent Auto 0.3 % (0.2-1.2); Eosinophils Absolute Auto 0.2 K/mm3 (0-0.3); Eosinophils Percent Auto 1.5 % (0-4.4); Hematocrit 40.8 % (37.0-47.0); Hemoglobin 13.1 g/dL (12.0-15.0); Immature Granulocyte Absolute 0.11 K/mm3 (0.00-0.031); Immature Granulocyte Percent A 0.7 % (0-0.5); Lymphocytes Absolute Auto 1.28 K/mm3 (0.9-3.2); Lymphocytes Percent Auto 7.8 % (18.3-44.2); Mean Corpuscular HGB Conc 32.1 g/dl (32-36); Mean Corpuscular Hemoglobin 25.8 pg (26-34); Mean Corpuscular Volume 80.3 fl (80-100); Monocytes Absolute Auto 3.5 K/mm3 (0.1-0.6); Monocytes Percent Auto 21.5 % (2.6-8.5); Neutrophils Absolute Auto 11.1 K/mm3 (1.3-6.7); Neutrophils Percent Auto 68.2 % (45.5-73.1); Platelet Count Result 283 k/mm3 (150-375); Red Blood Count 5.08 M/mm3 (4.2-5.4); Red Cell Distribution Width 15.9 % (11.5-14.5); White Blood Count 16.3 K/mm3 (4.5-10.0)
[2024-11-02 13:43] LABS: Alanine Aminotransferase 37 U/L (6-35); Albumin Level 4.1 g/dL (3.5-5.1); Alkaline Phosphatase 121 U/L (38-126); Anion Gap 14 mmol/L (4-12); Aspartate Amino Transferase 32 U/L (14-36); Bilirubin,Total 0.4 mg/dL (0.2-1.3); Blood Urea Nitrogen 17 mg/dL (7-17); Carbon Dioxide 19 mmol/L (22-30); Chloride 101 mmol/L (98-107); Estimated Glomerular Filt Rate > 60; Glucose 243 mg/dL (65-110); Lactic Acid Reflex 3.1 mmol/L (0.7-2.0); Potassium 3.1 mmol/L (3.4-5.0); Sodium 134 mmol/L (137-145); Total Protein 7.7 g/dL (6.3-8.2)
[2024-11-02 13:50] LABS: Schistocytes None Seen
[2024-11-02 13:51] LABS: Anisocytosis 1+; Platelet Estimate Adequate (Adequate)
[2024-11-02 14:05] LABS: Influenza A QL RT-PCR Negative (Negative); Influenza B QL RT-PCR Negative (Negative); RSV RNA, RT-PCR Negative (Negative); SARS-CoV-2 RNA PCR Negative (Negative)
[2024-11-02 14:29] VITALS: BP 146/70; PULSE 94; RESP 21; O2SAT 97
--- NOTE | 2024-11-02 15:10 | PC.NURSE ---
Dr. Bertrand at bedside updating pt. and pt. daughter (POA). Dr. Bertrand suggested pt. admission, but daughter explained to doctor that she prefer no admission if possible.
[2024-11-02 15:25] LABS: Reflex Lactic Acid Yes or No Add Lactic
[2024-11-02] MEDS: PIPERACILLN/TAZ 3.375GM/NS50ML 3.375 GM/50 ML BAG IVPB (15:25)
[2024-11-02 16:09] LABS: Lactic Acid 2.5 mmol/L (0.7-2.0)
--- NOTE | 2024-11-02 16:19 | ED_ITS ---
HPI - General Adult General Chief complaint: Shortness of Breath/Dyspnea Stated complaint: SOB Time Seen by Provider: 11/02/24 12:11 Source: family Mode of arrival: EMS Limitations: no limitations History of Present Illness HPI narrative: 83-year-old with a history of dementia, recurrent aspiration pneumonia of the carotid by daughter with a complains of possible aspiration. Patient daughter states that patient grabbed 1 of her fellow residents loss of water and started drinking start soon after she started having cough. Upon arrival patient has occasional cough denies any shortness of breath or chest pain. Onset (ago): hour(s) (1) Relieving factors: none Exacerbating factors: none Associated symptoms: denies other symptoms Related Data Home Medications ?Medication ?Instructions ?Recorded ?Confirmed ?Last Taken ?Type cranberry extract 425 mg capsule 425 mg PO DAILY 03/11/22 08/30/24 08/18/24 History dorzolamide 2 % eye drops 2 drp EACH EYE TID 03/11/22 08/30/24 08/18/24 History levothyroxine 75 mcg tablet 75 mcg PO DAILY 03/11/22 08/30/24 08/18/24 History nitroglycerin 0.4 mg sublingual 0.4 mg sublingual PRN PRN Chest 03/11/22 08/30/24 12/09/22 19:00 History tablet Pain rosuvastatin 10 mg tablet 10 mg PO HS 03/11/22 08/30/24 08/18/24 History arginine-vitamin C-vitamin E oral 1 g PO BID 10/28/22 08/30/24 08/18/24 History 4.5 gram-156 mg/9.2 gram powder pkt (Arginaid) acetaminophen 500 mg capsule 1,000 mg PO Q6H PRN pain 11/03/22 08/30/24 08/04/24 History bromfenac 0.09 % eye drops 1 drp RIGHT EYE HS 11/03/22 08/30/24 08/18/24 History Saccharomyces boulardii 250 mg 250 mg PO BID 05/11/23 08/30/24 08/18/24 History capsule (Florastor) acetic acid 0.25 % irrigation 30 ml irrigation EVERY OTHER DAY 05/11/23 08/30/24 08/19/24 History solution hyoscyamine sulfate 0.125 mg tablet 0.125 mg PO BID PRN cramping 05/11/23 08/30/24 Unknown History pantoprazole 40 mg tablet,delayed 40 mg PO DAILY 11/13/23 09/27/24 08/18/24 History release albuterol sulfate 90 mcg/actuation 2 puff inhalation PRN asthma 05/19/24 09/27/24 Unknown History aerosol inhaler ferrous sulfate 325 mg (65 mg 325 mg PO BID 05/19/24 09/27/24 08/18/24 History iron) tablet (Kassie-Time) insulin lispro 100 unit/mL 1 sliding scale dose subcut TID 05/19/24 09/27/24 08/18/24 History subcutaneous pen (Humalog KwikPen (U-100) Insulin) ipratropium 0.5 mg-albuterol 3 mg 3 ml inhalation TID 06/03/24 09/27/24 08/18/24 History (2.5 mg base)/3 mL nebulization soln escitalopram oxalate 10 mg tablet 10 mg PO DAILY 08/30/24 09/27/24 Unknown History (Lexapro) insulin glargine 100 unit/mL 20 unit subcut Q12H 08/30/24 09/27/24 Unknown History subcutaneous solution (Lantus U-100 Insulin) miconazole nitrate 2 % topical 1 applic topical BID fungal 08/31/24 09/27/24 Unknown History cream (Antifungal (miconazole)) infection nystatin 100,000 unit/gram topical 1 applic topical BID fungal 08/31/24 09/27/24 Unknown History powder infection Allergies Allergy/AdvReac Type Severity Reaction Status Date / Time black pepper Allergy Unknown Verified 11/02/24 12:13 diltiazem Allergy Unknown Verified 11/02/24 12:13 donepezil Allergy Unknown Verified 11/02/24 12:13 fluticasone Allergy Unknown Verified 11/02/24 12:13 metformin Allergy Unknown Verified 11/02/24 12:13 Review of Systems 2 Review of Systems: ROS unobtainable: Yes unobtainable due to mental status PMFSH Past Medical History Medical History Chronic anticoagulation Paroxysmal atrial fibrillation Obstructive sleep apnea Noncompliant with CPAP. Transient ischemic attack Gastroesophageal reflux disease Familial spastic paraplegia Glaucoma History of pulmonary embolism Multiple sclerosis Suprapubic catheter in place. 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 History of suprapubic catheter History of hysterectomy Family History Family History Father Spastic paralysis Mother Breast cancer Social History Social History Social History: Surrogate medical decision maker: Ange Reyes or Nancy Alvaro, daughters. Code status: Full code. Smoking status: Never smoker Second hand tobacco smoke exposure: No Alcohol intake: never Substance use: never Substance use type: does not use Do You Feel Safe in your Home?: Yes Lack of Transportation: No Lack of Food: Never True Current Housing: I Have Housing Concerned About Future Housing: No Difficulty Paying Gas/Electric Bills: No Difficulty Paying for Meds: No Currently Unemployed: No Education: High School Diploma/GED Difficulty w/ Childcare or Family Care: No Living arrangements: [facility] Additional living arrangements comments: [facility]. Has 3 daughters. 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 Spiritual care concerns: No Exam 2 Narrative: GENERAL: Well-appearing, well-nourished, and in no acute distress. HEAD: Normocephalic, atraumatic. EYES: PERRLA and EOMI. ENT: Nares clear, no rhinorrhea or epistaxis. Mucous membranes moist. NECK: Supple. CHEST: Clear to auscultation. No respiratory distress. HEART: Regular rate and rhythm. No murmur heard. Normal peripheral pulses. ABDOMEN: Soft, nontender, nondistended, normal active bowel sounds. EXTREMITIES: Normal range of motion. No edema. SKIN: Warm, dry, no rash. NEURO: No focal deficits. Alert and oriented x1. PSYCH: Normal mood and affect. Course Course Emergency Course: Notified patient's daughter were then bedside about the lab work, chest x-ray findings. Patient daughter declined admission. She prefers her to go back to the [facility]. She has established care and one of their family member is there all the time with her during feedings . Vital Signs Vital signs: Vital Signs Temperature 37.1 C 11/02/24 12:03 Pulse Rate 106 H 11/02/24 12:03 Respiratory Rate 23 H 11/02/24 12:03 Blood Pressure 129/62 11/02/24 12:03 Pulse Oximetry 95 11/02/24 12:03 Oxygen Delivery Room Air 11/02/24 12:03 Temperature 37.1 C 11/02/24 12:03 Pulse Rate 94 11/02/24 14:29 Respiratory Rate 21 H 11/02/24 14:29 Blood Pressure 146/70 H 11/02/24 14:29 Pulse Oximetry 97 11/02/24 14:29 Oxygen Delivery Nasal Cannula 11/02/24 12:31 Oxygen Flow Rate 2 11/02/24 12:31 Medical Decision Making MDM Narrative Medical decision making narrative: 83-year-old with history of recurrent aspiration pneumonia with possible aspiration will do lab and x-ray including blood cultures. Medical Records Medical records reviewed: Yes I reviewed the external patient's medical records. Vital Signs Vital Signs: Vital Signs Temperature 37.1 C 11/02/24 12:03 Pulse Rate 106 H 11/02/24 12:03 Respiratory Rate 23 H 11/02/24 12:03 Blood Pressure 129/62 11/02/24 12:03 Pulse Oximetry 95 11/02/24 12:03 Oxygen Delivery Room Air 11/02/24 12:03 Temperature 37.1 C 11/02/24 12:03 Pulse Rate 94 11/02/24 14:29 Respiratory Rate 21 H 11/02/24 14:29 Blood Pressure 146/70 H 11/02/24 14:29 Pulse Oximetry 97 11/02/24 14:29 Oxygen Delivery Nasal Cannula 11/02/24 12:31 Oxygen Flow Rate 2 11/02/24 12:31 Lab Data Lab results reviewed: Yes I reviewed the patient's lab results. 11/02/24 13:18 11/02/24 13:18 Labs: Lab Results 11/02/24 11/02/24 Range/Units 13:18 15:48 WBC 16.3 H (4.5-10.0) K/mm3 RBC 5.08 (4.2-5.4) M/mm3 Hgb 13.1 (12.0-15.0) g/dL Hct 40.8 (37.0-47.0) % MCV 80.3 (80-100) fl MCH 25.8 L (26-34) pg MCHC 32.1 (32-36) g/dl RDW 15.9 H (11.5-14.5) % Plt Count 283 (150-375) k/mm3 MPV 11.0 H (7.4-10.4) fl Immature Gran % (Auto) 0.7 H (0-0.5) % Neut % (Auto) 68.2 (45.5-73.1) % Lymph % (Auto) 7.8 L (18.3-44.2) % [place] % (Auto) 21.5 H (2.6-8.5) % Eos % (Auto) 1.5 (0-4.4) % Baso % (Auto) 0.3 (0.2-1.2) % Lymph # (Auto) 1.28 (0.9-3.2) K/mm3 [place] # (Auto) 3.5 H (0.1-0.6) K/mm3 Eos # (Auto) 0.2 (0-0.3) K/mm3 Baso # (Auto) 0.1 (0.0-0.1) K/mm3 Abs Immat Gran (auto) 0.11 H (0.00-0.031) K/mm3 Absolute Neuts (auto) 11.1 H (1.3-6.7) K/mm3 Absolute Nucleated RBC 0.000 (0.0-0.012) K/mm3 Band Neutrophils % Not Reportable Nucleated RBC % 0.0 (0.0-0.2) % Platelet Estimate Adequate (Adequate) Anisocytosis 1+ Schistocytes None seen Sodium 134 L (137-145) mmol/L Potassium 3.1 L (3.4-5.0) mmol/L Chloride 101 (98-107) mmol/L Carbon Dioxide 19 L (22-30) mmol/L Anion Gap 14 H (4-12) mmol/L BUN 17 D (7-17) mg/dL Creatinine 0.75 (0.7-1.0) mg/dL Estim Creat Clear Calc Not Reportable Estimated GFR > 60 (59 - ) Glucose 243 H (65-110) mg/dL Lactic Acid 3.1 H 2.5 H (0.7-2.0) mmol/L Calcium 10.0 (8.4-10.2) mg/dL Total Bilirubin 0.4 (0.2-1.3) mg/dL AST 32 (14-36) U/L ALT 37 H (6-35) U/L Alkaline Phosphatase 121 (38-126) U/L Total Protein 7.7 (6.3-8.2) g/dL Albumin 4.1 (3.5-5.1) g/dL Influenza A (RT-PCR) Negative (Negative) Influenza B (RT-PCR) Negative (Negative) RSV (RT-PCR) Negative (Negative) SARS-CoV-2 RNA (RT-PCR) Negative (Negative) Imaging Data Radiologist's impression: ITS Impressions Chest X-Ray 11/02/24 13:15 IMPRESSION: 1. No acute cardiopulmonary disease. ECG Data EKG #1: ECG completion date: 11/02/24 ECG completion time: 12:27 EKG Interpretation: tachycardia (105), non-specific ST changes, normal QRS and NL axis Discharge Plan Discharge Clinical Impression: Feared condition not demonstrated, Leukocytosis Patient Disposition: NH Snf/Asst Living Condition: Stable Instructions: Antibiotic Form, Aspiration Precautions (ED) Patient Language: Slovak Prescriptions: New amoxicillin-pot clavulanate 875-125 mg tablet 1 tablet PO Q12H Qty: 14 0RF No Action Arginaid 4.5 gram-156 mg/9.2 gram Powder In Packet 1 g PO BID Rx Instructions: 1 packet bid pantoprazole 40 mg tablet,delayed release (DR/EC) 40 mg PO DAILY albuterol sulfate 90 mcg/actuation HFA aerosol inhaler 2 puff INHALATION PRN ferrous sulfate [Kassie-Time] 325 mg (65 mg iron) tablet 325 mg PO BID insulin lispro [Humalog KwikPen Insulin] 100 unit/mL insulin pen 1 sliding scale dose SUBCUT TID loratadine 10 mg Tablet 10 mg PO QHS Qty: 20 0RF ipratropium-albuterol 0.5 mg-3 mg(2.5 mg base)/3 mL solution for nebulization 3 ml INHALATION TID escitalopram oxalate [Lexapro] 10 mg tablet 10 mg PO DAILY insulin glargine [Lantus U-100 Insulin] 100 unit/mL Solution 20 unit subcut Q12H nystatin 100,000 unit/gram powder 1 applic topical BID Rx Instructions: Apply under skin folds of breast, abdomen and groin miconazole nitrate [Antifungal (miconazole)] 2 % cream 1 applic topical BID Rx Instructions: apply to buttocks, leave open to air cranberry extract 425 mg Capsule 425 mg PO DAILY Rx Instructions: administer with a meal dorzolamide 2 % drops 2 drp EACH EYE TID Rx Instructions: daily, noon and HS rosuvastatin 10 mg tablet 10 mg PO HS nitroglycerin 0.4 mg tablet, sublingual 0.4 mg sublingual PRN PRN (Reason: Chest Pain) Rx Instructions: 1 tab po PRN q 5mins x 3 doses levothyroxine 75 mcg tablet 75 mcg PO DAILY Rx Instructions: takes Friday-Friday bromfenac 0.09 % drops 1 drp RIGHT EYE HS acetaminophen 500 mg capsule 1,000 mg PO Q6H PRN (Reason: pain) Patient Comments: . melatonin 5 mg Tablet 5 mg PO HS Qty: 30 0RF hyoscyamine sulfate 0.125 mg Tablet 0.125 mg PO BID PRN (Reason: cramping) acetic acid 0.25 % Solution 30 ml irrigation EVERY OTHER DAY Patient Comments: 30 ml irrigation every shift to flush suprapubic catheter every day Rx Instructions: Flush suprapubic catheter Mon, Fri, Friday Saccharomyces boulardii [Florastor] 250 mg Capsule 250 mg PO BID furosemide 40 mg Tablet 40 mg PO BID Qty: 60 0RF flecainide 50 mg tablet 50 mg PO Q12H Qty: 60 0RF Eliquis 5 mg tablet 5 mg PO Q12H Qty: 60 0RF Follow-up/Referrals: Daquan,Julian Greer DO [Primary Care Provider] -
[2024-11-02 16:50] VITALS: BP 109/81; PULSE 92; RESP 19; O2SAT 98
--- NOTE | 2024-11-02 17:08 | PC.NURSE ---
Attempted to call [facility] to give report. Waited on hold for 10 minutes and was still not connected with a nurse.
[2024-11-02 17:40] VITALS: BP 117/72; PULSE 85; RESP 14; O2SAT 98
== END 2024-11-02 17:48 ==
PROVIDERS: Emergency Provider Family Medicine; PCP Internal Medicine
DX: Z03.89 Encounter for observation for other suspected diseases and conditions ruled out (principal); D72.829 Elevated white blood cell count, unspecified; Z20.822 Contact with and (suspected) exposure to COVID-19; F03.90 Unspecified dementia, unspecified severity, without behavioral disturbance, psychotic disturbance, mood disturbance, and anxiety; I48.0 Paroxysmal atrial fibrillation; I11.0 Hypertensive heart disease with heart failure; I48.91 Unspecified atrial fibrillation; I50.9 Heart failure, unspecified; E11.39 Type 2 diabetes mellitus with other diabetic ophthalmic complication; H42 Glaucoma in diseases classified elsewhere; E21.3 Hyperparathyroidism, unspecified; E03.9 Hypothyroidism, unspecified; N31.9 Neuromuscular dysfunction of bladder, unspecified; G47.33 Obstructive sleep apnea (adult) (pediatric); K21.9 Gastro-esophageal reflux disease without esophagitis; G11.4 Hereditary spastic paraplegia; G35 Multiple sclerosis; K59.04 Chronic idiopathic constipation; Z96.0 Presence of urogenital implants; Z86.73 Personal history of transient ischemic attack (TIA), and cerebral infarction without residual deficits; Z86.711 Personal history of pulmonary embolism; Z85.3 Personal history of malignant neoplasm of breast; Z90.49 Acquired absence of other specified parts of digestive tract; Z90.710 Acquired absence of both cervix and uterus; Z79.4 Long term (current) use of insulin; Z79.899 Other long term (current) drug therapy; Z79.01 Long term (current) use of anticoagulants; R00.0 Tachycardia, unspecified; I44.4 Left anterior fascicular block
CPT/HCPCS: 36415; 71046; 80053; 83605; 85025; 87040; 87637; 93005; 96365; 99284; J2543

== ENCOUNTER 2024-11-12 17:16 | Emergency (ER) | payer MEDICARE, MEDICAID, SELFPAY ==
--- NOTE | ~2024-11-12 | XR_ITS ---
CHEST RADIOGRAPH CLINICAL HISTORY: SOB . COMPARISON: 11/03/2023 TECHNIQUE: Single portable view of the chest. FINDINGS The cardiomediastinal silhouette is unremarkable. Increased interstitial markings are identified bilaterally, findings suggesting mild pulmonary vascul ar congestion. The remainder of the lungs are clear. IMPRESSION: Mild pulmonary vascular congestion, without focal infiltrate or effusion. Reviewed, dictated and finalized at location A.
--- NOTE | ~2024-11-12 | CT_ITS ---
EXAMINATION: CTA chest PE protocol DATE: 11/12/2024 23:02 CDT INDICATION: Shortness of breath TECHNIQUE: Computed tomographic angiography (CTA) of the chest was performed with 100 mL Omnipaque-35 0 intravenous contrast. The dose-length product was 531.37 mGy-cm. Maximum intensity projection 3D-re constructions of the aorta and other arteries were constructed by the technologist on a separate work station. COMPARISON: None. Reference is made to a noncontrast enhanced CT examination of the chest dated FINDINGS/OBSERVATIONS: PULMONARY ARTERIES: No filling defect is identified within the main or proximal pulmonary artery. The main pulmonary artery is not enlarged. THORACIC AORTA: No aneurysmal dilatation or dissection is present. The great vessels are intact LUNGS: Trace bibasilar atelectasis, left greater than right. Left basilar bronchiectasis. MEDIASTINUM: No morphologically suspicious or pathologically enlarged lymph nodes are identified with in the mediastinum or bilateral axilla. Calcified lymph nodes are noted suggesting prior granulomatou s disease BONES OF THE CHEST: No acute fracture. Age-appropriate degenerative disease. No lytic or blastic lesions. HEART: The heart is enlarged, without pericardial effusion. IMPRESSION: No pulmonary embolus. No thoracic aortic dissection. Trace bibasilar atelectasis, left greater than right. Left basilar bronchiectasis. Reviewed, dictated and finalized at location A.
[2024-11-12 17:19] VITALS: PULSE 88; RESP 16; TEMP 36.4; O2SAT 100
[2024-11-12 17:32] VITALS: BP 106/40
--- NOTE | 2024-11-12 18:55 | ECG_ITS ---
Test Date: 2024-11-12 21:39:21 Measurements Intervals [place] Rate: 88 P: -44 AL: 121 QRS: -52 QRSD: 122 T: 66 QT: 387 QTc: 470 Interpretive Statements SINUS RHYTHM LEFT ANTERIOR FASCICULAR BLOCK BORDERLINE ST-T WAVE ABNORMALITY- HIGH LATERAL LEADS BASELINE ARTIFACT- I, II, III, AVR, AVL, AVF, V1-V6 ABNORMAL ECG Compared to ECG 11/02/2024 12:27:20 HEART RATE HAS DECREASED Electronically Signed On 11-13-2024 07:22:03 CDT by Emmanuel Tamez D.O.
--- NOTE | 2024-11-12 19:08 | ED.GENADULT ---
HPI - General Adult General Chief complaint: Shortness of Breath/Dyspnea Stated complaint: shortness of breath Time Seen by Provider: 11/12/24 18:52 History of Present Illness HPI narrative: 83 year old female presented to the emergency department for evaluation for increased cough congestion and shortness of breath. Patient is always on oxygen by nasal cannula. Patient had worsening shortness of breath this morning, EMS was called and patient was treated with a breathing treatment EN route and reported she felt improved. Patient's oxygen saturation is at her baseline. Patient is a poor historian but states she is not a smoker, she is unsure if she wears oxygen all the time. Patient states she does feel that she is having increased work of breathing and is unsure how long she has been having the cough and congestion. Related Data Home Medications ?Medication ?Instructions ?Recorded ?Confirmed ?Last Taken ?Type cranberry extract 425 mg capsule 425 mg PO DAILY 03/11/22 08/30/24 08/18/24 History dorzolamide 2 % eye drops 2 drp EACH EYE TID 03/11/22 08/30/24 08/18/24 History levothyroxine 75 mcg tablet 75 mcg PO DAILY 03/11/22 08/30/24 08/18/24 History nitroglycerin 0.4 mg sublingual 0.4 mg sublingual PRN PRN Chest 03/11/22 08/30/24 12/09/22 19:00 History tablet Pain rosuvastatin 10 mg tablet 10 mg PO HS 03/11/22 08/30/24 08/18/24 History arginine-vitamin C-vitamin E oral 1 g PO BID 10/28/22 08/30/24 08/18/24 History 4.5 gram-156 mg/9.2 gram powder pkt (Arginaid) acetaminophen 500 mg capsule 1,000 mg PO Q6H PRN pain 11/03/22 08/30/24 08/04/24 History bromfenac 0.09 % eye drops 1 drp RIGHT EYE HS 11/03/22 08/30/24 08/18/24 History Saccharomyces boulardii 250 mg 250 mg PO BID 05/11/23 08/30/24 08/18/24 History capsule (Florastor) acetic acid 0.25 % irrigation 30 ml irrigation EVERY OTHER DAY 05/11/23 08/30/24 08/19/24 History solution hyoscyamine sulfate 0.125 mg tablet 0.125 mg PO BID PRN cramping 05/11/23 08/30/24 Unknown History pantoprazole 40 mg tablet,delayed 40 mg PO DAILY 11/13/23 09/27/24 08/18/24 History release albuterol sulfate 90 mcg/actuation 2 puff inhalation PRN asthma 05/19/24 09/27/24 Unknown History aerosol inhaler ferrous sulfate 325 mg (65 mg 325 mg PO BID 05/19/24 09/27/24 08/18/24 History iron) tablet (Kassie-Time) insulin lispro 100 unit/mL 1 sliding scale dose subcut TID 05/19/24 09/27/24 08/18/24 History subcutaneous pen (Humalog KwikPen (U-100) Insulin) ipratropium 0.5 mg-albuterol 3 mg 3 ml inhalation TID 06/03/24 09/27/24 08/18/24 History (2.5 mg base)/3 mL nebulization soln escitalopram oxalate 10 mg tablet 10 mg PO DAILY 08/30/24 09/27/24 Unknown History (Lexapro) insulin glargine 100 unit/mL 20 unit subcut Q12H 08/30/24 09/27/24 Unknown History subcutaneous solution (Lantus U-100 Insulin) miconazole nitrate 2 % topical 1 applic topical BID fungal 08/31/24 09/27/24 Unknown History cream (Antifungal (miconazole)) infection nystatin 100,000 unit/gram topical 1 applic topical BID fungal 08/31/24 09/27/24 Unknown History powder infection Allergies Allergy/AdvReac Type Severity Reaction Status Date / Time black pepper Allergy Unknown Verified 11/13/24 01:26 diltiazem Allergy Unknown Verified 11/13/24 01:26 donepezil Allergy Unknown Verified 11/13/24 01:26 fluticasone Allergy Unknown Verified 11/13/24 01:26 metformin Allergy Unknown Verified 11/13/24 01:26 Review of Systems Review of Systems: All systems reviewed & are unremarkable except as noted in HPI and below PMFSH Past Medical History Medical History Chronic anticoagulation Paroxysmal atrial fibrillation Obstructive sleep apnea Noncompliant with CPAP. Transient ischemic attack Gastroesophageal reflux disease Familial spastic paraplegia Glaucoma History of pulmonary embolism Multiple sclerosis Suprapubic catheter in place. 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 History of suprapubic catheter History of hysterectomy Family History Family History Father Spastic paralysis Mother Breast cancer Social History Social History Social History: Surrogate medical decision maker: Ange Reyes or Nancy Quirosfaye, daughters. Code status: Full code. Smoking status: Never smoker Second hand tobacco smoke exposure: No Alcohol intake: never Substance use: never Substance use type: does not use Do You Feel Safe in your Home?: Yes Lack of Transportation: No Lack of Food: Never True Current Housing: I Have Housing Concerned About Future Housing: No Difficulty Paying Gas/Electric Bills: No Difficulty Paying for Meds: No Currently Unemployed: No Education: High School Diploma/GED Difficulty w/ Childcare or Family Care: No [facility] Additional living arrangements comments: [facility]. Has 3 daughters. Additional occupation/education comments: [employer]. Spiritual care concerns: No Exam Narrative: APPEARANCE: Ill-appearing and increased work of breathing HEAD: normocephalic, atraumatic. EYES: PERRLA/EOMI, conjunctivae clear. NOSE: Normal no drainage EARS:TMS clear with good light reflex. THROAT: Pharynx clear, no exudate. NECK: Supple. No adenopathy, no masses. RESPIRATORY: Airway patent, respirations nonlabored. Clear to auscultation bilaterally, no rales, rhonchi, wheezing. CARDIOVASCULAR: Regular rate and rhythm without murmurs rubs or gallops. ABDOMINAL: Congestion lung sounds bilaterally MUSCULOSKELETAL: Moves all extremities. Strength/ROM intact, No edema, No calf tenderness. NEURO: Alert. Cranial nerves II through XII intact. Good gait. Good coordination SKIN: Warm, dry. Normal Color Course Vital Signs Vital signs: Vital Signs Temperature 97.6 F 11/12/24 17:19 Pulse Rate 88 11/12/24 17:19 Respiratory Rate 16 11/12/24 17:19 Pulse Oximetry 100 11/12/24 17:19 Oxygen Delivery Nasal Cannula 11/12/24 17:19 Oxygen Flow Rate 2 11/12/24 17:19 Temperature 98.6 F 11/12/24 22:25 Pulse Rate 87 11/13/24 00:10 Respiratory Rate 18 11/13/24 00:10 Blood Pressure 142/86 H 11/13/24 00:10 Pulse Oximetry 99 11/13/24 00:10 Oxygen Delivery Nasal Cannula 11/12/24 22:36 Oxygen Flow Rate 2 11/12/24 22:36 Medical Decision Making MDM Narrative Medical decision making narrative: 83-year-old female presents emergency department for evaluation for shortness of breath. Family member states that patient sometimes does states she is having shortness of breath. Patient is afebrile but does have a leukocytosis. Patient often has an elevated leukocytosis, patient's hemoglobin is stable at 13. Patient does have a mild anion gap of 13 normal kidney function and a mildly elevated glucose of 185 urine was negative for infection patient was negative for influenza RSV and for COVID, chest x-ray shows mild pulmonary vascular congestion but BNP is not significantly elevated CTA was ordered to evaluate for pulmonary embolism as family states patient has a prior history of PE and this was negative. Patient states her breathing does feel improved and patient is in no distress at this time. Patient will be discharged back to her care facility. Differential Diagnosis Differential Diagnosis: Pneumonia, pulmonary embolism, CHF, ACS, anxiety Vital Signs Vital Signs: Vital Signs Temperature 97.6 F 11/12/24 17:19 Pulse Rate 88 11/12/24 17:19 Respiratory Rate 16 11/12/24 17:19 Pulse Oximetry 100 11/12/24 17:19 Oxygen Delivery Nasal Cannula 11/12/24 17:19 Oxygen Flow Rate 2 11/12/24 17:19 Temperature 98.6 F 11/12/24 22:25 Pulse Rate 87 11/13/24 00:10 Respiratory Rate 18 11/13/24 00:10 Blood Pressure 142/86 H 11/13/24 00:10 Pulse Oximetry 99 11/13/24 00:10 Oxygen Delivery Nasal Cannula 11/12/24 22:36 Oxygen Flow Rate 2 11/12/24 22:36 Lab Data Lab results reviewed: Yes I reviewed the patient's lab results. 11/12/24 21:12 11/12/24 21:12 Labs: Lab Results 11/12/24 11/12/24 Range/Units 21:12 22:22 WBC 21.6 H (4.5-10.0) K/mm3 RBC 5.02 (4.2-5.4) M/mm3 Hgb 13.0 (12.0-15.0) g/dL Hct 39.3 (37.0-47.0) % MCV 78.3 L (80-100) fl MCH 25.9 L (26-34) pg MCHC 33.1 (32-36) g/dl RDW 15.5 H (11.5-14.5) % Plt Count 403 H (150-375) k/mm3 MPV 10.0 (7.4-10.4) fl Immature Gran % (Auto) Not Reportable Neut % (Auto) Not Reportable Lymph % (Auto) Not Reportable [place] % (Auto) Not Reportable Eos % (Auto) Not Reportable Baso % (Auto) Not Reportable Lymph # (Auto) Not Reportable [place] # (Auto) Not Reportable Eos # (Auto) Not Reportable Baso # (Auto) Not Reportable Abs Immat Gran (auto) Not Reportable Absolute Neuts (auto) Not Reportable Absolute Nucleated RBC Not Reportable Total Counted 100 Neutrophils % (Manual) 72 (46-73) % Band Neutrophils % 0 (0-6) % Lymphocytes % (Manual) 16.0 L (18-44) % Monocytes % (Manual) 12 H (3-9) % Nucleated RBC % Not Reportable Abs Neuts (Manual) 15.55 H (1.3-6.7) K/mm3 Abs Lymphs (Manual) 3.45 (1.1-4.5) K/mm3 Abs Monocytes (Manual) 2.59 H (0.1-0.90) K/mm3 Platelet Estimate Increased (Adequate) Anisocytosis 2+ Microcytosis 1+ (NORMAL) Schistocytes None seen Sodium 134 L (137-145) mmol/L Potassium 3.5 (3.4-5.0) mmol/L Chloride 105 (98-107) mmol/L Carbon Dioxide 16 L (22-30) mmol/L Anion Gap 13 H (4-12) mmol/L BUN 21 H (7-17) mg/dL Creatinine 0.91 (0.7-1.0) mg/dL Estim Creat Clear Calc Not Reportable Estimated GFR 59 (59 - ) Glucose 185 H (65-110) mg/dL Calcium 9.9 (8.4-10.2) mg/dL Total Bilirubin 0.3 (0.2-1.3) mg/dL AST 27 (14-36) U/L ALT 24 (6-35) U/L Alkaline Phosphatase 138 H (38-126) U/L NT-Pro-B Natriuret Pep 674 H (19.9-100) pg/mL Total Protein 7.6 (6.3-8.2) g/dL Albumin 3.9 (3.5-5.1) g/dL Urine Color Yellow (Yellow) Urine Appearance Cloudy H (Clear) Urine pH 5.5 (5.0-9.0) Ur Specific [place] 1.006 (1.001-1.035) Urine Protein Negative (Negative) mg/dL Urine Glucose (UA) Negative (Negative) mg/dL Urine Ketones Negative (Negative) mg/dL Ur Blood (Man) Negative (Negative) Urine Nitrate Negative (Negative) Urine Bilirubin Negative (Negative) Urine Urobilinogen 0.2 (<2.0) mg/dL Add Ur Microanalysis Reviewed Leukocyte Esterase Rfl 3+ H (Negative) ANABELA/UL Urine RBC 6-10 H (0-2) /hpf Urine WBC 11-20 H (0-3) /hpf Ur Squamous Epith Cells None seen (Few) /hpf Urine Bacteria None seen /hpf Urine Casts 0-2 Urine Yeast (Budding) Present H (None) /hpf Influenza A (RT-PCR) Negative (Negative) Influenza B (RT-PCR) Negative (Negative) RSV (RT-PCR) Negative (Negative) SARS-CoV-2 RNA (RT-PCR) Negative (Negative) Imaging Data Radiologist's impression: Impressions Chest X-Ray 11/12/24 19:10 IMPRESSION: Mild pulmonary vascular congestion, without focal infiltrate or effusion. Chest CTA 11/12/24 23:01 IMPRESSION: No pulmonary embolus. No thoracic aortic dissection. Trace bibasilar atelectasis, left greater than right. Left basilar bronchiectasis. Discharge Plan Discharge Clinical Impression: Dyspnea Patient Disposition: Home Condition: Stable Instructions: Antibiotic Form Additional Instructions: Have close follow-up with your primary care physician. Patient Language: Bahraini Prescriptions: No Action Arginaid 4.5 gram-156 mg/9.2 gram Powder In Packet 1 g PO BID Rx Instructions: 1 packet bid pantoprazole 40 mg tablet,delayed release (DR/EC) 40 mg PO DAILY albuterol sulfate 90 mcg/actuation HFA aerosol inhaler 2 puff INHALATION PRN ferrous sulfate [Kassie-Time] 325 mg (65 mg iron) tablet 325 mg PO BID insulin lispro [Humalog KwikPen Insulin] 100 unit/mL insulin pen 1 sliding scale dose SUBCUT TID loratadine 10 mg Tablet 10 mg PO QHS Qty: 20 0RF ipratropium-albuterol 0.5 mg-3 mg(2.5 mg base)/3 mL solution for nebulization 3 ml INHALATION TID escitalopram oxalate [Lexapro] 10 mg tablet 10 mg PO DAILY insulin glargine [Lantus U-100 Insulin] 100 unit/mL Solution 20 unit subcut Q12H nystatin 100,000 unit/gram powder 1 applic topical BID Rx Instructions: Apply under skin folds of breast, abdomen and groin miconazole nitrate [Antifungal (miconazole)] 2 % cream 1 applic topical BID Rx Instructions: apply to buttocks, leave open to air amoxicillin-pot clavulanate 875-125 mg tablet 1 tablet PO Q12H Qty: 14 0RF cranberry extract 425 mg Capsule 425 mg PO DAILY Rx Instructions: administer with a meal dorzolamide 2 % drops 2 drp EACH EYE TID Rx Instructions: daily, noon and HS rosuvastatin 10 mg tablet 10 mg PO HS nitroglycerin 0.4 mg tablet, sublingual 0.4 mg sublingual PRN PRN (Reason: Chest Pain) Rx Instructions: 1 tab po PRN q 5mins x 3 doses levothyroxine 75 mcg tablet 75 mcg PO DAILY Rx Instructions: takes Friday-Friday bromfenac 0.09 % drops 1 drp RIGHT EYE HS acetaminophen 500 mg capsule 1,000 mg PO Q6H PRN (Reason: pain) Patient Comments: . melatonin 5 mg Tablet 5 mg PO HS Qty: 30 0RF hyoscyamine sulfate 0.125 mg Tablet 0.125 mg PO BID PRN (Reason: cramping) acetic acid 0.25 % Solution 30 ml irrigation EVERY OTHER DAY Patient Comments: 30 ml irrigation every shift to flush suprapubic catheter every day Rx Instructions: Flush suprapubic catheter Fri, Fri, Friday Saccharomyces boulardii [Florastor] 250 mg Capsule 250 mg PO BID furosemide 40 mg Tablet 40 mg PO BID Qty: 60 0RF flecainide 50 mg tablet 50 mg PO Q12H Qty: 60 0RF Eliquis 5 mg tablet 5 mg PO Q12H Qty: 60 0RF Follow-up/Referrals: Daquan,Julian Greer DO [Primary Care Provider] -
[2024-11-12] MEDS: ALBUTEROL SULFATE NEB 2.5 MG/3 ML INH 5 MG INHALATION (19:25)
[2024-11-12 19:31] VITALS: PULSE 81; RESP 18
[2024-11-12 19:41] VITALS: PULSE 84; RESP 18
[2024-11-12 21:20] LABS: Hematocrit 39.3 % (37.0-47.0); Mean Corpuscular HGB Conc 33.1 g/dl (32-36); Mean Corpuscular Hemoglobin 25.9 pg (26-34); Mean Corpuscular Volume 78.3 fl (80-100); Platelet Count Result 403 k/mm3 (150-375); Red Blood Count 5.02 M/mm3 (4.2-5.4); Red Cell Distribution Width 15.5 % (11.5-14.5); White Blood Count 21.6 K/mm3 (4.5-10.0)
[2024-11-12 21:30] LABS: Alanine Aminotransferase 24 U/L (6-35); Albumin Level 3.9 g/dL (3.5-5.1); Alkaline Phosphatase 138 U/L (38-126); Anion Gap 13 mmol/L (4-12); Aspartate Amino Transferase 27 U/L (14-36); Bilirubin,Total 0.3 mg/dL (0.2-1.3); Blood Urea Nitrogen 21 mg/dL (7-17); Calcium 9.9 mg/dL (8.4-10.2); Carbon Dioxide 16 mmol/L (22-30); Chloride 105 mmol/L (98-107); Estimated Glomerular Filt Rate 59; Glucose 185 mg/dL (65-110); Potassium 3.5 mmol/L (3.4-5.0); Sodium 134 mmol/L (137-145); Total Protein 7.6 g/dL (6.3-8.2)
[2024-11-12 21:39] LABS: NT Pro B Type Natriuretic Pept 674 pg/mL (19.9-100)
[2024-11-12 21:48] LABS: Lymphocytes Absolute Manual 3.45 K/mm3 (1.1-4.5); Monocytes Absolute Manual 2.59 K/mm3 (0.1-0.90); Monocytes Percent Manual 12 % (3-9); Neutrophils Percent Manual 72 % (46-73); Total Cells Counted 100
[2024-11-12 21:49] LABS: Anisocytosis 2+; Platelet Estimate Increased (Adequate); Schistocytes None Seen
[2024-11-12 21:50] LABS: Microcytosis 1+ (NORMAL)
[2024-11-12 21:51] LABS: Band Neutrophils Percent 0 % (0-6); Neutrophils Absolute Manual 15.55 K/mm3 (1.3-6.7)
[2024-11-12 22:25] VITALS: PULSE 82; RESP 18; TEMP 37; O2SAT 100
[2024-11-12 22:36] VITALS: O2SAT 100
[2024-11-12 23:09] LABS: Add Urine Microscopic? YES; Appearance Urine Cloudy (Clear); Bacteria Urine None Seen /hpf; Bilirubin Urine Negative (Negative); Blood Urine Negative (Negative); Budding Yeast Urine Present /hpf; Color Urine Yellow (Yellow); Glucose Urine UA Negative (Negative); Ketones Urine Negative (Negative); Leukocyte Esterase Ur 3+ LEU/UL (Negative); Need Manual Microscopic Reviewed; Nitrate Urine Negative (Negative); Non Pathogenic Casts 0-2; Protein Urine Negative (Negative); Specific Grav Ur 1.006 (1.001-1.035); Squamous Epithelial Cell Urine None Seen /hpf (Few); Urobilinogen Urine 0.2 mg/dL (<2.0); pH Urine 5.5 (5.0-9.0)
[2024-11-12 23:22] LABS: Influenza A QL RT-PCR Negative (Negative); Influenza B QL RT-PCR Negative (Negative); RSV RNA, RT-PCR. Negative (Negative); SARS-CoV-2 RNA PCR Negative (Negative)
[2024-11-13 00:10] VITALS: BP 142/86; PULSE 87; RESP 18; O2SAT 99
--- NOTE | 2024-11-13 01:29 | PC.NURSE ---
This RN spoke with pts RN at facility and updated about pt POC and ETA back.
[2024-11-13 07:01] VITALS: BP 142/86; PULSE 87; RESP 18; O2SAT 99
== END 2024-11-13 07:03 | disposition home or self-care (01) ==
PROVIDERS: Emergency Provider Emergency Medicine; PCP Internal Medicine
DX: R06.00 Dyspnea, unspecified (principal); Z20.822 Contact with and (suspected) exposure to COVID-19; I48.0 Paroxysmal atrial fibrillation; I25.10 Atherosclerotic heart disease of native coronary artery without angina pectoris; I50.9 Heart failure, unspecified; I11.0 Hypertensive heart disease with heart failure; E11.39 Type 2 diabetes mellitus with other diabetic ophthalmic complication; H42 Glaucoma in diseases classified elsewhere; E03.9 Hypothyroidism, unspecified; E21.3 Hyperparathyroidism, unspecified; N31.9 Neuromuscular dysfunction of bladder, unspecified; G35 Multiple sclerosis; G11.4 Hereditary spastic paraplegia; G47.33 Obstructive sleep apnea (adult) (pediatric); K59.04 Chronic idiopathic constipation; K21.9 Gastro-esophageal reflux disease without esophagitis; Z99.81 Dependence on supplemental oxygen; Z86.711 Personal history of pulmonary embolism; Z86.73 Personal history of transient ischemic attack (TIA), and cerebral infarction without residual deficits; Z85.3 Personal history of malignant neoplasm of breast; Z90.710 Acquired absence of both cervix and uterus; Z90.49 Acquired absence of other specified parts of digestive tract; R09.89 Other specified symptoms and signs involving the circulatory and respiratory systems; Z79.4 Long term (current) use of insulin; Z79.899 Other long term (current) drug therapy; Z79.01 Long term (current) use of anticoagulants; I44.4 Left anterior fascicular block; R94.31 Abnormal electrocardiogram [ECG] [EKG]
CPT/HCPCS: 36415; 71045; 71275; 80053; 81001; 83880; 85025; 87086; 87637; 93005; 94640; 99284; Q9967

== ENCOUNTER 2025-04-20 07:47 | Outpatient (CLI) | payer MEDICARE, MEDICAID, SELFPAY ==
--- NOTE | ~2025-04-20 | CT_ITS ---
EXAMINATION: CT abdomen pelvis wo con DATE: 04/20/2025 08:15 INDICATION: Renal calculus TECHNIQUE: Computed tomography (CT) of the abdomen and pelvis was performed with 100 mL Omnipaque-350 intravenous contrast. Automated exposure control and iterative reconstruction technique were employed. The dose-length product was 377.56 mGy-cm. COMPARISON: 05/11/2023 FINDINGS: Minimal dependent atelectasis in bilateral lower lobes. Cardiomegaly. Atherosclerotic coronary artery calcific lesion. Aortic valve and dense mitral annular calcification. No pericardial or pleural effusion. Multiple small hepatic and splenic calcific lesions consistent with old granulomatous disease. Cholecystectomy clips in the gallbladder fossa. Pancreas and bilateral adrenal glands are normal. Kidneys and ureters are normal with no urolithiasis, hydroureteronephrosis or perinephric/ureteral stranding. Suprapubic Schmitt catheter within the decompressed bladder. The uterus is not identified and has likely been surgically resected. 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 Short loop of nonobstructed small bowel extends into a moderate-sized right and direct inguinal hernia. No bowel obstruction. No free intraperitoneal gas or fluid. No pathologically enlarged abdominal or pelvic lymphadenopathy. There is calcified atherosclerosis of the aorta and many of the other arteries. 30 degrees lumbar levoscoliosis with severe spondylosis. IMPRESSION: 1. Kidneys appear normal with no urolithiasis or hydronephrosis. 2. Moderate-sized right inguinal hernia containing a short loop of nonobstructed small bowel. 3. Postoperative changes including cholecystectomy, hysterectomy, subtotal colectomy with right lower quadrant and ileostomy and chronic suprapubic Schmitt catheter placement. 4. Mild cardiomegaly. Reviewed, dictated and finalized at location A. IAN LECTURER IMPRESSION: 1. Kidneys appear normal with no urolithiasis or hydronephrosis. 2. Moderate-sized right inguinal hernia containing a short loop of nonobstructe d small bowel. 3. Postoperative changes including cholecystectomy, hysterectomy, subtotal cachorro ctomy with right lower quadrant and ileostomy and chronic suprapubic Schmitt cath eter placement. 4. Mild cardiomegaly.
--- OUTSIDE RECORDS SUMMARY | 2025-04-20 07:52 | XMS_ITS | Encounter Summary ---
Author Organization [facility] Address [address] [place] [address] Care Team Providers Care Hospital Administrative Assistant Name Role Phone Theresa Camargo MD Primary Care Provider Laz Valencia MD Unavailable [phone] Migue Herman MD Unavailable [phone] Sonny Palmer MD Unavailable [phone] Elizabeth Car MD Primary Care Provider Unknown, Notinfile Primary Care Provider Unavail able Encounter Details Date Type Department Care Team (Late st Contact Info) Description 08/01/2020 Telephone [facility] [address] [place] [address] Rosa Espinoza, RT Social History Tobacco Use Types Packs/Day Years Used Date Smoking Tobacco: Never Smokeless Tobacco: Never Alcohol Use Standard Drinks/Week Comments No 0 (1 standard drink = 0.6 oz pur e alcohol) PHQ-2 Answer Date Recorded PHQ-2 Score 0 03/06/2019 Comments No Sex and Gender Information Value Date Recorded Sex Assigned at Not on file Legal Sex Female 6:56 PM TIRE CURER Gender Identity Not on file Sexual Orientation Not on file documented as of this encounter Plan of Treatment Not on file documented as of this encounter Visit Diagnoses Not on filedocumented in this encounter Additional Health Concerns Infection Onset Date Last Indicated Resolved Time COVID: Suspected 12/20/2020 12/20/2020 12/20/2020 6:55 PM CDT documented as of this encounter Care Teams Hospital Administrative Assistant Relationship Specialty Start Date End Date Theresa Camargo MD PCP - General 09/29/18 12/05/22 Elizabeth Car MD [address] [facility] [address] [place] [address] PCP - General Family Medicine 12/06/22 08/11/24 Unknown, Notinfile PCP - General 08/12/24 Laz Valencia MD Consulting Physician Cardiology 03/22/19 12/05/22 Migue Herman MD Consulting Physician Urology 05/16/19 Sonny Palmer MD Surgeon General Surgery 05/16/19 documented as of this encounter
--- OUTSIDE RECORDS SUMMARY | 2025-04-20 07:52 | XMS_ITS ---
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 Lymphedema of both lower extremities 10/01/2017 [...]
--- OUTSIDE RECORDS SUMMARY | 2025-04-20 07:52 | XMS_ITS ---
Author Organization [facility] Address [address] [place] [place] [address] Care Team Providers Care Steam Tank Operator Name Role Phone Etienne Florez MD Unavailable [phone] Enrique Gonzalez MD Unavailable [phone] Nelson Ross MD Unavailable Laz Valencia MD Unavailable Russell Moran MD Unavailable Yuliya Ibarra MD Unavailable [phone] Phuong Callejas DPM Unavailable Sy Barrientos MD Unavailable [phone] Russell Moran MD Unavailable Rico Gasca MD Unavailable Elle Landaverde MD Unavailable Kirk Truong MD Unavailable Shira Love DO Unavailable [phone] Sara Schultz MD Unavailable [phone] Hussain Ray MD Unavailable [phone] Elizabeth Car MD Primary Care Provider + Active Problems Problem Noted Date Diagnosed Date 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..] 01/07/2011 Type 2 diabetes mellitus without complication Overview (02/16/2025): IMO 02/16/2025 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 Heart murmur CATY (obstructive sleep apnea) CAD (coronary artery disease) Overview (06/26/2018): Last Stress test 12/2015 Dr. Valencia 60 % blockage 2010 Lymphatic edema Current Treatment and Therapy Plans [...] proteus Assessment & Plan (07/20/2019 8:50 PM ORDAINED MINISTER): - Lower urinary tract symptoms (LUTS) 03/23/2019 11/23/2019 Overview (03/24/2019): 11/2018 on myrbetriq 25mg (Dr. Gasca) with some improvement. Had confusion with 50mg? 03/24/19 PVR 304mL. Olivas placed for incontinence, quality of life. Stop myrbetriq. Assessment & Plan (07/20/2019 8:50 PM ORDAINED MINISTER): - Assessment & Plan (06/01/2019 9:22 PM ORDAINED MINISTER): - Assessment & Plan (03/23/2019 4:31 PM ORDAINED MINISTER): - Pneumonia due to infectious organism 07/24/2018 [...]
--- OUTSIDE RECORDS SUMMARY | 2025-04-20 07:52 | XMS_ITS | Encounter Summary ---
Author Organization [facility] Healthcare Address [address] [place] [address] Care Team Providers Care Highwall Drill Operator Name Role Phone Migue Herman MD Unavailable [phone] Sonny Palmer MD Unavailable [phone] Elizabeth Car MD Primary Care Provider Unknown, Notinfile Primary Care Provider Unavail able Encounter Details Date Type Department Care Team (Late st Contact Info) Description 06/07/2024 Orders Only [facility] Health Information Management [address] [place] [id number] Scanning, Provider Social History Tobacco Use Types Packs/Day Years Used Date Smoking Tobacco: Never Smokeless Tobacco: Never Alcohol Use Standard Drinks/Week Comments No 0 (1 standard drink = 0.6 oz pur e alcohol) Social Connection and Isolation Panel Answer Date Recorded In a typical week, how many times do you talk on the phone with family, friends, or neighbors? More than three times a week 12/25/2020 How often do you get togethe r with friends or relatives? More than three times a week 12/25/2020 How often do you attend chur ch or orthodoxy services? Never 12/25/2020 Do you belong to any clubs o r organizations such as nondenominational groups, unions, fraternal or athletic groups, or [...] on file Legal Sex Female 6:56 PM GENETIC TECHNOLOGIST Gender Identity Not on file Sexual Orientation Not on file documented as of this encounter Plan of Treatment Not on file documented as of this encounter Procedures Procedure Name Priority Date/Time Associated Diagnosis Comments SCAN - RADIOLOGY/IMAGING 06/07/2024 documented in this encounter Results * SCAN - RADIOLOGY/IMAGING (06/07/2024) Anatomical Region Laterality Modality Other us Provider Scanning Final Result documented in this encounter Visit Diagnoses Not on filedocumented in this encounter Care Teams Highwall Drill Operator Relationship Specialty Start Date End Date Elizabeth Car MD [address] [address] PCP - General Family Medicine 12/06/22 08/11/24 Unknown, Notinfile PCP - General 08/12/24 Migue Herman MD Consulting Physician Urology 05/16/19 Sonny Palmer MD Surgeon General Surgery 05/16/19 documented as of this encounter
--- OUTSIDE RECORDS SUMMARY | 2025-04-20 07:52 | XMS_ITS | Encounter Summary ---
Author Organization [facility] Address [address] [place] [address] Care Team Providers Care Street Light Lamp Cleaner Name Role Phone Etienne Florez MD Unavailable Enrique Gonzalez MD Unavailable [phone] Theresa Camargo MD Primary Care Provider Nelson Ross MD Unavailable Laz Valencia MD Unavailable Russell Moran MD Unavailable [phone] Yuliya Ibarra MD Unavailable Phuong Callejas DPM Unavailable Sy Barrientos MD Unavailable Russell Moran MD Unavailable Rico Gasca MD Unavailable [phone] Elle Landaverde MD Unavailable [phone] Kirk Truong MD Unavailable [phone] Shira Love DO Unavailable [phone] Theresa Camargo MD Unavailable + 00 Brooke Haynes GASATERIA ATTENDANT-SURVEILLANCE SYSTEM MONITOR Unavailable +[phone] Theresa Camargo MD Unavailable [phone] Brooke Haynes GASATERIA ATTENDANT-SURVEILLANCE SYSTEM MONITOR Unavailable +[phone] Theresa Camargo MD Unavailable [phone] Asha Narvaez GASATERIA ATTENDANT-SURVEILLANCE SYSTEM MONITOR Unavailable [phone] Theresa Camargo MD Unavailable + 00 Asha Narvaez GASATERIA ATTENDANT-SURVEILLANCE SYSTEM MONITOR Unavailable +[phone] Sara Schultz MD Unavailable + [phone] Brooke Haynes GASATERIA ATTENDANT-SURVEILLANCE SYSTEM MONITOR Unavailable +[phone] Rosa Abraham RN Unavailable + Hussain Ray MD Unavailable + 00 Theresa Camargo MD Unavailable + 00 Enrique Gonzalez MD Unavailable + 42 Rosa Abraham RN Unavailable [phone] Elizabeth Car MD Primary Care Provider + Theresa Camargo MD Primary Care Provider +[phone] Rosa Abraham RN Unavailable + [phone] Elizabeth Car MD Primary Care Provider + Jarrell Garrison MD Unavailable Brooke Haynes GASATERIA ATTENDANT-SURVEILLANCE SYSTEM MONITOR Unavailable +[phone] Encounter Details Date Type Department Care Team (Late st Contact Info) Description 08/05/2017 [facility] [address] [place] [address] Shira Love, [address] [place] [address] Social History Tobacco Use Types Packs/Day Years Used Date Smoking Tobacco: Never Smokeless Tobacco: Never Alcohol Use Standard Drinks/Week Comments No 0 (1 standard drink = 0.6 oz pur e alcohol) Comments No Sex and Gender Information Value Date Recorded Sex Assigned at Not on file Legal Sex Female 11:53 AM SUBWAREHOUSE SUPERVISOR Gender Identity Not on file Sexual Orientation Not on file documented as of this encounter Functional Status * Is person deaf or have serious hearing difficulty? Answer Date of Assessment Author No 12/28/2016 8:42 PM CDT Hanny Cedeno RN * Is person blind or [...] Entry Date Author No 12/28/2016 8:42 PM AVELINOT Alessio Cedeno RN documented in this encounter Plan of Treatment Not on file documented as of this encounter Goals Goal Patient Goal Type Associated Problems Recent Progress Patient-Stated? Author Blood Pressure < 140/90 Blood Pressure 127/52(2022 8:09 AM SUBWAREHOUSE SUPERVISOR) No Alisa Barcenas, DES HEMOGLOBIN A1C < 7.0 Result Component 5.4( 12:00 AM CDT) No Alisa Barcenas, DES documented as of this encounter Visit Diagnoses Not on filedocumented in this encounter Additional Health Concerns Infection Onset Date Last Indicated Resolved Time COVID-19 Under Investigation 09/26/2020 09/26/2020 09/27/2020 7:46 AM CDT CDIFF Under Investigation 05/19/2022 05/19/2022 9:06 PM SUBWAREHOUSE SUPERVISOR documented as of this encounter Care Teams Street Light Lamp Cleaner Relationship Specialty [place] [address] [address] [place] [address] PCP - General Internal Medicine 03/31/18 05/30/22 [place] [address] [address] [place] [address] PCP - Attributed-MSSP 03/19/19 06/18/19 Brooke Haynes APRN-SURVEILLANCE SYSTEM MONITOR [address] [address] [place] [address] PCP - Attributed-MSSP 06/19/19 07/17/19 [place] [address] [address] [place] [address] PCP - Attributed-MSSP 07/18/19 10/17/19 Brooke Haynes GASATERIA ATTENDANT-SURVEILLANCE SYSTEM MONITOR [address] [address] [place] [address] PCP - Attributed-MSSP 10/18/19 11/16/19 [place] [address] [address] [place] [address] PCP - Attributed-MSSP 11/17/19 02/16/20 Asha Narvaez GASATERIA ATTENDANT-SURVEILLANCE SYSTEM MONITOR [address] [place] [address] PCP - Attributed-MSSP 02/17/20 06/18/20 [place] [address] [address] [place] [address] PCP - Attributed-MSSP 06/19/20 08/16/20 Asha Narvaez APRN-SURVEILLANCE SYSTEM MONITOR [address] [facility][note 3] [address] [place] [address] PCP - Attributed-MSSP 08/17/20 10/16/20 Brooke Haynes GASATERIA ATTENDANT-SURVEILLANCE SYSTEM MONITOR [address] [facility] [address] [place] [address] PCP - Attributed-MSSP 10/17/20 09/15/21 [place] [address] [facility] [address] [place] [address] PCP - Attributed-MSSP 09/16/21 11/15/21 [place] [address] [facility] [address] [place] [address] PCP - Attributed-MSSP 11/16/21 10/03/22 Elizabeth Car MD 6812 [facility] [address] [place] [address] PCP - General Family Medicine 05/31/22 08/05/22 [place] [address] [facility] [address] [place] [address] PCP - General 08/06/22 08/14/22 Elizabeth Car MD [address] [place] [address] PCP - General Family Medicine 08/15/22 Jarrell Garrison MD [address] [facility] 150 [place] [address] PCP - Attributed-MSSP 04/18/18 10/16/18 Brooke Haynes APRN-SURVEILLANCE SYSTEM MONITOR [address] [facility] [address] [place] [address] PCP - Attributed-MSSP 10/17/18 9 Etienne Florez MD Orthopedic Surgery 12/09/14 [place] [address] [facility] [address] [place] [address] Oncology 09/15/17 [place] [address] [facility] 100 [place] [address] Neurology 06/26/18 [place] [address] [facility] [address] [place] [address] Cardiovascular Disease 06/26/18 [place] [address] [address] Pulmonary Disease 06/26/18 Yuliya Ibarra MD [address] [facility] [address] [place] [phone] Endocrinology 06/26/18 Phuong Callejas DPM [address] [place] [address] Podiatry 06/26/18 Sy Barrientos MD [address] [place] [address] [place] [address] Ophthalmology 06/26/18 [place] [address] [address] Pulmonary Disease 06/26/18 Rico Gasca MD [address] [facility] [address] [address] Urology 06/26/18 Elle Landaverde MD [address] [address] Vascular Surgery 06/26/18 Kirk Truong MD [address] [phone] Gastroenterology 06/26/18 [place] [address] [facility] [address] [place] [address] General Surgery 06/26/18 [place] [address] [facility] [address] [place], [place] [address] Pulmonary Disease 11/10/20 Rosa Abraham, DES Culture ManagerSlice Plug Cutter Operator Helper 06/19/21 07/05/21 Hussain Ray MD [address] [facility] [address] [place] [address] Urology 07/11/21 Rosa Abraham RN Culture ManagerSlice Plug Cutter Operator Helper 05/31/22 05/31/22 Rosa Abraham RN Culture ManagerSlice Plug Cutter Operator Helper 08/15/22 08/15/22 documented as of this encounter
--- OUTSIDE RECORDS SUMMARY | 2025-04-20 07:52 | XMS_ITS | Clinical Summary ---
Author Organization [facility] Address [address] [place] [address] Phone Care Team Providers Care Franchise Manager Name Role Phone Unavailable Primary Care Provider [...] (FREESTYLE LANCETS) 28 gauge 100 [facility]Non-Drug; Combo Route) route daily. Dx code 250.02 [...] complication, without long-term current use of insulin ([facility]) TAKE 2 TABLETS BY MOUTH WITH [...] Encounters Date Type Department Care Team Description 04/12/2025 External Device Data ST[facility] ABSTRACTION Provider, Abstract 04/05/2025 External Device Data [facility] ABSTRACTION Provider, Abstract [...] on file Legal Sex Female 6:00 AM CLAIM ANALYST Gender Identity Not on file Sexual [...] 165.1 cm (5' 5) 06/06/2022 1:30 PM CLAIM ANALYST Body Mass Index 27.46 06/06/2022 1:30 PM CLAIM ANALYST Plan of Treatment Upcoming Encounters Date Type Department Care Team (Late st Contact Info) Description 09/28/2025 1:15 PM CDT Office Visit [facility] Oncology and Hematology - [place] [address] [place] [address] [facility] [address] [place] [address] Ovidio Nolen MD [address] [facility] [address] [place] [address] Health Maintenance Due Date Last Done Comments ZOSTER VACCINE (2 of 3) 10/19/2007 08/24/2007 RSV VACCINE (60+ or ) (1 - 1-dose 75+ series) 2013 LDL CHOLESTEROL ANNUAL 12/12/2017 7, 08/18/2015, 04/19/2014 (Previously completed), Additional history exists DIABETES MICROALBUMIN ANNUAL SCREEN 05/02/2018 05/02/2017, 01/19/2016, 08/18/2015, Additional history exists DIABETES ANNUAL FOOT EXAM 07/26/20212020, 06/09/2020, 05/05/2020, Additional history exists DIABETES ANNUAL RETINAL EXAM 10/22/202210/2021, 10/22/2021, 02/15/2021, Additional history exists INFLUENZA VACCINE (#1) 2024 , 03/05/2019, 03/31/2018, Additional history exists COVID-19 Vaccine (2024-2 6 season) 2025 07/07/2020, 06/13/2020 DIABETES HBA1C Q 6 MONTHS 04/28/20252024, 07/27/2024, 07/01/2024, Additional history exists OSTEOPOROSIS SCREENING 06/06/2025 , 06/06/2020, 10/29/2017, Additional history exists DTAP/TDAP/TD VACCINES (2 - T d or Tdap) 08/29/2025 08/30/2015 PNEUMOCOCCAL VACCINE 50+ YEARS Completed 0 02/16/2016, 12/04/2010, 11/29/2005 COLORECTAL SCREENING Discontinued 12/27/2020, 12/27/2020, 02/17/2019, Additional history exists Colorectal Cancer Screening Discontinued Flex Sig/CT Colonography Q 5 years Discontinued 12/27/2020, 12/27/2020 FIT-DNA Q 3 years Discontinued FIT/FOBT Q 1 year Discontinued Medical Devices Implanted Type Area Public Health Teacher Device Identifier Shelf Expiration Date Model / Serial / Lot Log [id number] - Bladder Slings And Tapes - 1 - Sling Desara System [id number] Implanted:Qty: 1 on 09/10/2010 at [facility] Sling N/A: Vagina [employer] 05/17/2013 [id number] / / [id number] Procedures Procedure Name Priority Date/Time Associated Diagnosis Comments XR DEXA BONE DENSITY AXIAL 1 OR MORE SITES Routine 06/06/2020 10:40 AM CLAIM ANALYST Hyperparathyroidism, unspecified Subclinical hypothyroidism HEMOGLOBIN A1C Routine 05/05/2020 1:54 PM CLAIM ANALYST Type 2 diabetes mellitus not at goal ([facility]) MICROALBUMIN/CREATI NINE RATIO, RANDOM UR Routine 05/02/2017 12:38 PM CLAIM ANALYST Type 2 diabetes mellitus without complication, without long-term current use of insulin ([facility]) LIPID PANEL Routine 12/12/2016 4:14 AM CDT Type 2 diabetes mellitus without complication, with long-term current use of insulin ([facility]) from Last 3 Months or Most Recently Relevant to Health Maintenance Results * XR DEXA BONE DENSITY AXIAL 1 OR MORE SITES (06/06/2020 10:40 AM CLAIM ANALYST) Anatomical Region Laterality Modality Digital Radiogra phy 06/06/2020 11:0 3 AM CLAIM ANALYST Impressions 06/06/2020 11:14 AM CLAIM ANALYST IMPRESSION: This is a summary page. Please refer to the complete detailed report found in the Imaging Section of the [facility] EMR. Osteopenia. Lumbar Spine: T-Score: -1.5 [...] Smart MD DICTATION LOCATION: 06/06/2020 11:14 AM CLAIM ANALYST EXAMINATION: BONE DENSITY STUDY (DXA) DATE: 06/06/2020 10:40 AM HISTORY: 79 years Female. Postmenopausal. PROCEDURE: Planar images of the lumbar spine, hip(s) and forearm(s) using a [facility] DEXA scanner for bone mineral density determination [...] lumbar spine, hip(s) and forearm(s) using a [employer] DEXA scanner for bone mineral density determination [...] found in the Imaging Section of the [facility] EMR. Osteopenia. Lumbar Spine: T-Score: -1.5 [...] * (ABNORMAL) HEMOGLOBIN A1C (05/05/2020 1:54 PM CLAIM ANALYST) HEMOGLOBIN A1C 7.1(H) <5.7 % of total Hgb [facility] Comment: For someone without known [...] of diabetes for children. Test Performed at: [facility] [address] [facility] [place] [address] Elie Hamlin D.O., MPH Blood 05/05/2020 1:54 PM CLAIM ANALYST us Yuliya Ibarra MD CHEMISTRY ORDERABLES Final Re sult [employer] [facility] [address] [place] [address] * MICROALBUMIN/CREATININE RATIO, RANDOM UR (05/02/2017 12:38 PM CLAIM ANALYST) MICROALBUMIN, URINE <1.2 No Reference Range mg/dL 05/02/2017 2:23 PM CLAIM ANALYST [facility] [employer] [facility] CREATININE, URINE 59.8 29.0 - 226.0 mg/dL 05/02/2017 2:23 PM [facility] [employer] [facility] Comment: Reference Range varies with fluid intake and diet. MICROALBUMIN/C REAT RATIO, UR <20.1 <25.0 mg/g 05/02/2017 2:23 PM [facility] [employer] [facility] Urine URINE SPECIMEN OBTAINED BY CLEAN CATCH PROCEDURE / Unknown Collection / Unknown 05/02/2017 12:38 PM CLAIM ANALYST 05/02/2017 1:18 PM CLAIM ANALYST [facility] [employer] [facility] - 05/02/2017 2:23 PM CLAIM ANALYST Condition Microalbumin/Creat ratio Normal Males <17 Normal Females <25 Microalbuminuria Males 17-299 Microalbuminuria Females 25-299 Overt proteinuria >=300 Yuliya Ibarra MD URINE ORDERABLES Final Result [facility] LABORATORY SERVICES [facility]# [id number] [address] [facility] [place] [address] * (ABNORMAL) LIPID PANEL (12/12/2016 4:14 AM CDT) CHOLESTEROL 97(L) 125 - 200 mg/dL [facility] HDL 33(L) > OR = 46 mg/dL [facility] TRIGLYCERIDE 138 <150 mg/dL [facility] LDL CALCULATED 36 <130 mg/dL (calc) [facility] Comment: Desirable range <100 mg/dL for patients with CHD or diabetes and <70 mg/dL for diabetic patients with known heart disease. CHOL/HDL RATIO 2.9 < OR = 5.0 (calc) [facility] TOTAL NON-HDL CHOL(LDL+VLDL) 64 mg/dL (calc) [facility] Comment: Target for non-HDL cholesterol is 30 mg/dL higher than LDL cholesterol target. Test Performed at: [facility] [address] [place] [address] ELIE HAMLIN DO,MPH Blood 12/12/2016 4:14 AM CDT Yuliya Ibarra MD CHEMISTRY ORDERABLES Final Re sult [facility] [address] [place] [address] from Last 3 Months or Most Recently Relevant to Health Maintenance Insurance MEDICAID [place] MEDICARE PART A AND B Advance Directives For more information, please contact: [phone] Documents on File Type Date Recorded Patient Title Insurance Sales Representative Expl anation Advance Directive POA 11/14/2014 10:49 AM * Full Code (Latest Code Status on File) Date Activated Date Inactivated Comments 09/10/2010 6:07 PM 09/11/2010 5:58 PM * Full Code Date Activated Date Inactivated Comments 09/10/2010 11:59 AM 09/10/2010 6:07 PM * Full Code Date Activated Date Inactivated Comments 09/10/2010 10:29 AM 09/10/2010 11:59 AM
--- OUTSIDE RECORDS SUMMARY | 2025-04-20 07:52 | XMS_ITS | Encounter Summary ---
Author Organization [facility] Address [address] [place] [address] Care Team Providers Care Ocean Biologist Name Role Phone Etienne Florez MD Unavailable Enrique Gonzalez MD Unavailable [phone] Theresa Camargo MD Primary Care Provider Nelson Ross MD Unavailable [phone] Laz Valencia MD Unavailable Russell Moran MD Unavailable [phone] Yuliya Ibarra MD Unavailable Phuong Callejas DPM Unavailable [phone] Sy Barrientos MD Unavailable Russell Moran MD Unavailable Rico Gasca MD Unavailable Elle Landaverde MD Unavailable Kirk Truong MD Unavailable [phone] Shira Love DO Unavailable [phone] Sara Schultz MD Unavailable [phone] Hussain Ray MD Unavailable [phone] Enrique Gonzalez MD Unavailable [phone] Rosa Abraham RN Unavailable [phone] Elizabeth Car MD Primary Care Provider + Theresa Camargo MD Primary Care Provider [phone] Rosa Abraham RN Unavailable [phone] Elizabeth Car MD Primary Care Provider + Encounter Details Date Type Department Care Team (Late st Contact Info) Description 02/05/2022 [facility] Outpatient Visit [facility] Health Cancer Care [address] [place] [address] [place] [id number] [place] [address] Social History Tobacco Use Types Packs/Day Years Used Date Smoking Tobacco: Never Smokeless Tobacco: Never Alcohol Use Standard Drinks/Week Comments No 0 (1 standard drink = 0.6 oz pur e alcohol) PHQ-2 Answer Date Recorded PHQ2 TOTAL SCORE 0 08/01/2021 Comments No Sex and Gender Information Value Date Recorded Sex Assigned at Not on file Legal Sex Female 11:53 AM SECTION LEADER Gender Identity Not on file Sexual Orientation Not on file 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 Not on file Not on [...] < 140/90 Blood Pressure 127/52(2022 8:09 AM SECTION LEADER) No Alisa Barcenas RN HEMOGLOBIN A1C < 7.0 Result Component 5.4( 12:00 AM CDT) No Alisa Barcenas RN documented as of this encounter Visit Diagnoses Not on filedocumented in this encounter Additional Health Concerns Infection Onset Date Last Indicated Resolved Time CDIFF Under Investigation 05/19/2022 05/19/2022 9:06 PM SECTION LEADER documented as of this encounter Care Teams Ocean Biologist Relationship Specialty [place] [address] [facility] [address] [place] [address] PCP - General Internal Medicine 03/31/18 05/30/22 [place] [address] [facility] [address] [place] [address] PCP - Attributed-MSSP 11/16/21 10/03/22 Elizabeth Car MD [address] [facility] [address] [place] [address] PCP - General Family Medicine 05/31/22 08/05/22 [place] [address] [facility] [address] [place] [address] PCP - General 08/06/22 08/14/22 Elizabeth Car MD [address] [place] [address] PCP - General Family Medicine 08/15/22 Etienne Florez MD Orthopedic Surgery 12/09/14 [place] [address] [facility] [address] [place] [address] Oncology 09/15/17 [place] [address] [facility] [address] [place] [address] Neurology 06/26/18 [place] [address] [facility] [address] [place] [address] Cardiovascular Disease 06/26/18 [place] [address] [address] Pulmonary Disease 06/26/18 Yuliya Ibarra MD [address] [facility] [address] [place] [address] Endocrinology 06/26/18 Phuong Callejas DPM [address] [place] [address] Podiatry 06/26/18 Sy Barrientos MD [address] [place] [address] [place] [address] Ophthalmology 06/26/18 [place] [address] [address] Pulmonary Disease 06/26/18 Rico Gasca MD [address] [facility] [address], [place] [address] Urology 06/26/18 Elel Landaverde MD [address] [address] Vascular Surgery 06/26/18 Kirk Truong MD [address] [address] Gastroenterology 06/26/18 [place] [address] [facility] [address] [place] [address] General Surgery 06/26/18 [place] [address] [place] [address] Pulmonary Disease 11/10/20 Hussain Ray MD [address] [facility] [address] [place] [address] Urology 07/11/21 Rosa Abraham RN Housing Quality Standard InspectorFamily Coach 05/31/22 05/31/22 Rosa Abraham RN Housing Quality Standard InspectorFamily Coach 08/15/22 08/15/22 documented as of this encounter
--- OUTSIDE RECORDS SUMMARY | 2025-04-20 07:52 | XMS_ITS | Clinical Summary ---
Author Organization [facility] Address [address] [place] [address] Care Team Providers Care Quality Control Specialist Name Role Phone Etienne Florez MD Unavailable [phone] Enrique Gonzalez MD Unavailable [phone] Nelson Ross MD Unavailable Laz Valencia MD Unavailable Russell Moran MD Unavailable Yuliya Ibarra MD Unavailable [phone] Phuong Callejas DPM Unavailable [phone] Sy Barrientos MD Unavailable Russell Moran MD Unavailable Rico Gasca MD Unavailable Elle Landaverde MD Unavailable [phone] Kirk Truong MD Unavailable Shira Love DO Unavailable Sara Schultz MD Unavailable [phone] Hussain Ray MD Unavailable Elizabeth Car MD Primary Care Provider + Source Comments [facility],non-owned Affiliates and Associated Physician Practices is amultiple site organization consisting of ambulatory clinics and hospital sitesin [place], [place], [place] and [place]. This disclosure is being madepursuant to the Care Everywhere program and may not contain all information available regarding this patient. Last updated 18.[facility] Allergies Active Allergy Reactions Criticality Noted Date [...] mouth 2 times daily Active HYDROcodone-aceta minophen ([place]) 5-325 MG tablet Take 1 (one) tablet [...] Department Care Team Description 07/31/2020 Office Visit [place] [employer] Representative [address] [place] [id number] Laz Valencia MD Type 2 diabetes [...] from 09/16/2017:Stage IA(cT1b, cN0, cM0, G2, ER+, VA+, HER2-) - Signed by Clarita Mir MD on 10/31/2018 Pathologic stage from 09/17/2017:Stage IA(pT1c, pN0(sn), cM0, G2, ER+, VA+, HER2-) - Signed by Clarita Mir MD [...] proteus Assessment & Plan (07/20/2019 8:50 PM EDI COORDINATOR): - Lower urinary tract symptoms (LUTS) 03/23/2019 11/23/2019 Overview (03/24/2019): 11/2018 on myrbetriq 25mg (Dr. Gasca) with some improvement. Had confusion with 50mg? 03/24/19 PVR 304mL. Olivas placed for incontinence, quality of life. Stop myrbetriq. 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 on file Not on file Not on fi le Last Filed Vital Signs Vital Sign Reading Time Taken Comments Blood Pressure 127/52 05/30/2022 8:09 AM EDI COORDINATOR Pulse 80 05/30/2022 8:09 AM EDI COORDINATOR Temperature 37 C (98.6 F) 05/30/2022 8:09 AM EDI COORDINATOR Respiratory Rate 19 05/30/2022 8:09 AM EDI COORDINATOR Oxygen Saturation 96% 05/30/2022 8:09 AM EDI COORDINATOR Inhaled Oxygen Concentration - - Weight 85.1 kg (187 lb 10.5 oz) 05/23/2022 4:00 AM EDI COORDINATOR Height 162.6 cm (5' 4) 05/22/2022 11:3 9 AM EDI COORDINATOR Body Mass Index 32.21 05/22/2022 11:39 AM EDI COORDINATOR Plan of Treatment Health Maintenance Due Date [...] 07/27/2020, 12/30/2019, Additional history exists DEPRESSION SCREENING 05/19/2024 08/01/2021 COVID-19 VACCINE ( season) 2025 02/27/2022, 07/28/2021, 07/07/2020, Additional history exists INFLUENZA VACCINE (#1) 2025 0, 03/05/2019, 03/05/2019, Additional history exists DTAP/TDAP/TD VACCINES [...] < 140/90 Blood Pressure 127/52(2022 8:09 AM EDI COORDINATOR) No Alisa Barcenas RN HEMOGLOBIN A1C < 7.0 Result Component 5.4( 12:00 AM CDT) No Alisa Barcenas RN Procedures Procedure Name Priority Date/Time Associated Diagnosis [...] Resulting Agency Comment [facility]: [facility] [address] [facility] [id number] Theresa Camargo MD LAB - CHEMISTRY ORDERABLES Fin al Result [facility] INSURANCE BILL [address] [place] [address] * DEXA BONE DENSITY AXIAL SKELETON (10/29/2017 [...] AM Procedure Note Kelly Cline MD - 06/13/2018 BONE MINERAL DENSITY STUDY INDICATION: Postmenopausal ovarian [...] Recently Relevant to Health Maintenance Insurance MEDICARE [facility] MEDICARE MANAGED CARE PLAN GENERIC MEDICARE ADV Care Advance Directives Documents on File Type Date Recorded Patient School Admissions Representative Expl anation Adv Directive/Living Will/POA 09/21/2020 7:42 [...] 8:33 PM 08/26/2017 12:39 PM Care Teams Quality Control Specialist Relationship Specialty Start Date End Date Elizabeth Car MD [address] [place] [address] PCP - General Family Medicine 08/15/22 Etienne Florez MD Orthopedic Surgery 12/09/14 [place] [address] [phone] Oncology 09/15/17 [place] [address] [phone] Neurology 06/26/18 [place] [id number] [place] [address] [address] [place] [address] Cardiovascular Disease 06/26/18 Russell Moran MD [address] [place] [address] Pulmonary Disease 06/26/18 Yuliya Ibarra MD [address] [facility] [address] [place] [phone] Endocrinology 06/26/18 Phuong Callejas DPM [address] [place] [address] Podiatry 06/26/18 Sy Barrientos MD [address] [place] [address] [place] [address] Ophthalmology 06/26/18 Russell Moran MD [address] [place] [address] Pulmonary Disease 06/26/18 Rico Gasca MD [address] [place] [address] Urology 06/26/18 Elle Landaverde MD [address] [place] [address] Vascular Surgery 06/26/18 Kirk Truong MD [address] [place] [address] Gastroenterology 06/26/18 [place] [address] [place] [address] General Surgery 06/26/18 [place] [address] [address] [place] [address] Pulmonary Disease 11/10/20 Hussain Ray MD [address] [facility] [address] [place] [address] Urology 07/11/21
--- OUTSIDE RECORDS SUMMARY | 2025-04-20 07:52 | XMS_ITS | Clinical Summary ---
Author Organization [facility] Address [address] [place] [address] Care Team Providers Care Slide Forming Machine Tender Name Role Phone Migue Herman MD Unavailable [phone] Sonny Palmer MD Unavailable [phone] Unknown, Notinfile Primary Care Provider Unavail able [...] tablet (150 mcg total) by mouth early interventionist before breakfast 4 Active levothyroxine (SYNTHROID) 75 mcg tablet Take 1 tablet (75 mcg total) by mouth early interventionist before breakfast Once a day MON thru [...] (12/22/2020): Added automatically from request for surgery [id number] Cystitis 05/14/2019 Chronic constipation 05/14/2019 Recurrent inguinal [...] 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 Lymphedema of both lower extremities [...] improved Hx Other Medical TIA Diabetes mellitus Atrial fibrillation (HCC) Pneumonia Glaucoma Familial spastic paraplegia (HCC) Sleep apnea Lymphatic edema A-fib (HCC) Anxiety Heart disease Neuromuscular disorder Family History Medical History Relation Name Comments [...] medical appointments or from getting medications? No 0801/2021 In the past 12 months, has l ack of transportation kept you from meetings, work, or from getting things needed for daily living? 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 Gender Identity Not on file Sexual [...] 03/12/2021, Additional history exists Influenza Vaccine (#1) 2025 , 03/05/2019, 03/31/2018, Additional history exists DTaP/Tdap/Td [...] us Elizabeth Car MD LAB BLOOD ORDERABLES nal Result [facility] [address] Department [place] [address] * (ABNORMAL) Plasma lipid panel (08/18/2015 5:00 AM CDT) Cholesterol 112 100 - 200 mg/dl HISTORICAL RESULTS Triglycerides 175(H) 10 - 150 mg/dl HISTORICAL RESULTS HDL 27(L) 40 - 59 mg/dl HISTORICAL RESULTS LDL 50(L) 60 - 129 mg/dl HISTORICAL RESULTS Plasma 08/18/2015 5:00 AM CDT Narrative HISTORICAL RESULTS - 08/18/2015 6:29 AM CDT Test performed at [facility] [place], [address] [place] [address], [facility], [facility]. 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
== END 2025-04-20 07:48 | disposition home or self-care (01) ==
PROVIDERS: PCP Internal Medicine; Visit Provider Nurse Practitioner Family
DX: N20.0 Calculus of kidney (principal); K40.90 Unilateral inguinal hernia, without obstruction or gangrene, not specified as recurrent; I51.7 Cardiomegaly
CPT/HCPCS: 74176